=== PATIENT | female | born 1945 | race Caucasian/White ===

== ENCOUNTER → 2018-04-25 13:13 | Outpatient (CLI) | payer MEDICARE, SELFPAY ==
[2016-03-30 09:30] VITALS: BMI 24.4
[2018-04-25 15:22] LABS: Albumin, Serum 3.9 g/dL (3.2-5.0); BUN 37 mg/dL (7-18); BUN/Creat Ratio 25.9 RATIO (10-20); CPK Total, Creatine Kinase 103 U/L (26-192); Chloride 110 mmol/L (98-107); Creatinine, Serum 1.43 mg/dL (0.55-1.02); EST Glomerular Filtration Rate 38 mL/min (>60); Est Glom Filt Rate - Afr Amer 46 mL/min (>60); Glucose 99 mg/dL (74-106); Phosphorus 2.2 mg/dL (2.5-4.9); Potassium 4.8 mmol/L (3.5-5.1); Sodium Level 142 mmol/L (136-145)
== END ==
PROVIDERS: Family Provider Internal Medicine; PCP Internal Medicine; Visit Provider Internal Medicine Nephrology
DX: N18.3 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, stage 3 (moderate) (principal)
CPT/HCPCS: 36415; 80069; 82550

== ENCOUNTER → 2018-04-30 10:18 | Outpatient (CLI) | payer MEDICARE, SELFPAY ==
[2016-03-30 09:30] VITALS: BMI 24.4
--- NOTE | 2018-04-30 10:24 | US_ITS ---
STUDY: RENAL ULTRASOUND - COMPLETE REASON FOR EXAM: Female, 73 years old. Elevated BUN/creatinine TECHNIQUE: Ultrasound evaluation of the kidneys was performed with real-time and static moore-scale imaging. COMPARISON: None. FINDINGS: RIGHT KIDNEY: Normal location of the right kidney, which is normal in size. The right kidney measures 12.2 x 4.7 x 4.1 cm. There is a normal cortex of the right kidney. The renal cortex measures 1.2 cm. There is a 1.6 x 1.7 x 1.8 cm cyst, and stable post surgical changes in the upper pole.. There are no right renal calculi. There is no right hydronephrosis. DISTAL RIGHT URETER: There is non-visualization of the distal right ureter. There is no demonstrated right ureterovesical junction calculus. There is a visualized right ureteral jet. LEFT KIDNEY: There has been a previous left nephrectomy. AORTA: There is no elongation or tortuosity of the abdominal aorta. I.V.C.: The IVC is patent. BLADDER: The distended urinary bladder has a volume of 313.8 ml. The empty urinary bladder has a volume of 30.30 ml. There is a normal wall thickness of the distended urinary bladder. There is no demonstrated mass within the urinary bladder. There are no demonstrated bladder calculi. US/Kidney and Bladder IMPRESSION: Stable 1.8 cm cyst in the upper pole the right kidney. Stable postsurgical changes noted in the upper lobe of the right kidney measuring 2.0 x 1.9 x 2.2 cm Previous left nephrectomy Electronically Signed: Joe Barros MD at 12:41 EDT , Service support ,
== END ==
PROVIDERS: Family Provider Internal Medicine; PCP Internal Medicine; Referring Provider Internal Medicine Nephrology; Visit Provider Internal Medicine Nephrology
DX: N18.3 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, stage 3 (moderate) (principal)
CPT/HCPCS: 76770

== ENCOUNTER → 2018-05-17 10:01 | Outpatient (CLI) | payer MEDICARE, SELFPAY ==
[2016-03-30 09:30] VITALS: BMI 24.4
[2018-05-17 10:56] LABS: Albumin, Serum 3.4 g/dL (3.2-5.0); BUN 32 mg/dL (7-18); BUN/Creat Ratio 23.2 RATIO (10-20); Calcium,Total 8.5 mg/dL (8.5-10.1); Chloride 112 mmol/L (98-107); Creatinine, Serum 1.38 mg/dL (0.55-1.02); EST Glomerular Filtration Rate 40 mL/min (>60); Est Glom Filt Rate - Afr Amer 48 mL/min (>60); Glucose 64 mg/dL (74-106); Phosphorus 2.2 mg/dL (2.5-4.9); Potassium 4.1 mmol/L (3.5-5.1); Sodium Level 144 mmol/L (136-145)
== END ==
PROVIDERS: Family Provider Internal Medicine; PCP Internal Medicine; Referring Provider Internal Medicine Nephrology; Visit Provider Internal Medicine Nephrology
DX: N18.3 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, stage 3 (moderate) (principal)
CPT/HCPCS: 36415; 80069

== ENCOUNTER 2018-08-03 12:38 | Outpatient (RCR) | payer MEDICARE, SELFPAY ==
[2018-08-01 08:53] VITALS: BMI 24.8
[2018-08-03 13:01] LABS: Prothrombin Time Fingerstick 30.8 SEC (11.9-14.4)
== END 2018-08-19 23:59 ==
LOC: LAB.FUTURE 12:38
PROVIDERS: Family Provider Internal Medicine; PCP Internal Medicine; Referring Provider Internal Medicine Cardiovascular Disease; Visit Provider Internal Medicine Cardiovascular Disease
DX: I82.409 Acute embolism and thrombosis of unspecified deep veins of unspecified lower extremity (principal)
CPT/HCPCS: 36416; 85610

== ENCOUNTER → 2018-08-13 | Outpatient (CLI) | payer MEDICARE, SELFPAY ==
[2018-08-01 08:53] VITALS: BMI 24.8
--- NOTE | 2018-08-13 15:14 | ECHOD_ITS ---
Reason For Study: Emboli Procedure This was a 2D Doppler, Color Flow transthoracic echocardiogram. Contrast injection was performed. Exam performed in department. Left Ventricle Normal LV size. Left ventricular systolic function is normal. The estimated ejection fraction is 55 %. Stage 1 diastolic dysfunction. No regional wall motion abnormalities noted. Right Ventricle Normal RV size. Normal systolic function. Atria Normal left atrium. Normal right atrium. Mitral Valve Normal mitral valve. Mild-Moderate (1-2+) eccentric mitral valve insufficiency. Tricuspid Valve Normal tricuspid valve. Moderate (2+) tricuspid valve insufficiency. Pulmonary artery systolic pressure is 35 mmHg. Aortic Valve The aortic valve is not well visualized. Pulmonic Valve Normal pulmonic valve. Great Vessels Normal aortic root. The pulmonary artery is normal size. Normal inferior vena cava. Pericardium/Pleural No pericardial effusion. Medication Performed a rapid injection of agitated mix of 9 cc saline and 1cc air to assess for atrial septal defect. Diluted definity 5ml given slow IV push to enhance endocardial definition. MMode/2D Measurements & Calculations LVIDd: 3.9 cm IVSd: 1.1 cm Ao root diam: 3.3 cm LVIDs: 2.7 cm LVPWd: 1.0 cm RVDd: 3.9 cm FS: 31.2 % LAV(MOD-bp): 27.9 ml LA A4 area: 10.4 cm2 LA dimension(2D): 3.9 cm LAV(MOD-bp) Indexed: 17.2 ml/m2 LAV(MOD-sp2): 38.2 ml LAV(MOD-sp4): 20.1 ml RA A4 area: 20.1 cm2 Doppler Measurements & Calculations MV E max henry: 42.1 cm/sec Lat Peak E' Henry: 5.4 cm/sec Med Peak E' Henry: 4.1 cm/sec MV A max henry: 96.5 cm/sec E/E' lat: 7.9 E/E' med: 10.2 MV E/A: 0.44 Ao V2 max: 119.1 cm/sec LV V1 max: 68.7 cm/sec PA V2 max: 58.1 cm/sec Ao max P.7 mmHg LV V1 max P.9 mmHg Ao V2 mean: 84.7 cm/sec Ao mean P.1 mmHg Ao V2 VTI: 22.6 cm TR max henry: 274.7 cm/sec TR max P.2 mmHg Interpretation Summary Normal LV size. Left ventricular systolic function is normal. The estimated ejection fraction is 55 %. Stage 1 diastolic dysfunction. Contrast injection was performed. Ordering Physician: Jordan Marte Referring Physician: Amos Fulton Performed By: Analilia Ji, COLT, RVT
== END | disposition home or self-care (01) ==
LOC: CVS 15:12
PROVIDERS: Family Provider Internal Medicine; PCP Internal Medicine; Referring Provider Internal Medicine Cardiovascular Disease; Visit Provider Internal Medicine Cardiovascular Disease
DX: Z86.711 Personal history of pulmonary embolism (principal)
CPT/HCPCS: 93306; Q9957; A4216; C8929

== ENCOUNTER → 2018-08-17 | Outpatient (CLI) | payer MEDICARE, SELFPAY ==
[2018-05-22 11:36] VITALS: BMI 24.4
[2018-08-01 08:53] VITALS: BMI 24.8
[2018-08-17 16:35] LABS: Albumin, Serum 3.3 g/dL (3.2-5.0); BUN 29 mg/dL (7-18); BUN/Creat Ratio 18.1 RATIO (10-20); Calcium,Total 9.2 mg/dL (8.5-10.1); Chloride 110 mmol/L (98-107); EST Glomerular Filtration Rate 33 mL/min (>60); Est Glom Filt Rate - Afr Amer 40 mL/min (>60); Glucose 102 mg/dL (74-106); Phosphorus 2.8 mg/dL (2.5-4.9); Sodium Level 142 mmol/L (136-145)
== END | disposition home or self-care (01) ==
LOC: LAB.FUTURE 15:32
PROVIDERS: Family Provider Internal Medicine; PCP Internal Medicine; Referring Provider Internal Medicine Nephrology; Visit Provider Internal Medicine Nephrology
DX: N18.3 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, stage 3 (moderate) (principal)
CPT/HCPCS: 36415; 80069

== ENCOUNTER 2018-09-06 12:48 | Outpatient (RCR) | payer MEDICARE, SELFPAY ==
[2018-08-01 08:53] VITALS: BMI 24.8
[2018-09-06 13:55] LABS: Prothrombin Time (Protime)PT. 22.9 SECONDS (11.7-14.9)
[2018-09-06 13:58] LABS: Albumin, Serum 3.3 g/dL (3.2-5.0); BUN 26 mg/dL (7-18); BUN/Creat Ratio 18.3 RATIO (10-20); Calcium,Total 8.9 mg/dL (8.5-10.1); Chloride 107 mmol/L (98-107); Creatinine, Serum 1.42 mg/dL (0.55-1.02); EST Glomerular Filtration Rate 38 mL/min (>60); Est Glom Filt Rate - Afr Amer 46 mL/min (>60); Glucose 62 mg/dL (74-106); Phosphorus 3.3 mg/dL (2.5-4.9); Potassium 4.3 mmol/L (3.5-5.1); Sodium Level 141 mmol/L (136-145)
== END 2018-09-06 16:26 | disposition home or self-care (01) ==
LOC: LAB 12:48
PROVIDERS: Family Provider Internal Medicine; PCP Internal Medicine; Referring Provider Internal Medicine Cardiovascular Disease; Visit Provider Internal Medicine Cardiovascular Disease
DX: N18.3 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, stage 3 (moderate) (principal); I82.409 Acute embolism and thrombosis of unspecified deep veins of unspecified lower extremity
CPT/HCPCS: 36415; 80069; 85610

== ENCOUNTER 2018-10-04 11:02 | Outpatient (RCR) | payer MEDICARE, SELFPAY ==
[2018-08-01 08:53] VITALS: BMI 24.8
[2018-10-04 17:08] LABS: Prothrombin Time Fingerstick 23.8 SEC (11.9-14.4)
== END 2018-10-04 13:00 | disposition home or self-care (01) ==
LOC: LAB 11:02
PROVIDERS: Family Provider Internal Medicine; PCP Internal Medicine; Referring Provider Internal Medicine Cardiovascular Disease; Visit Provider Internal Medicine Cardiovascular Disease
DX: I82.409 Acute embolism and thrombosis of unspecified deep veins of unspecified lower extremity (principal)
CPT/HCPCS: 36416; 85610

== ENCOUNTER 2018-11-01 12:18 | Outpatient (RCR) | payer MEDICARE, SELFPAY ==
[2018-08-01 08:53] VITALS: BMI 24.8
[2018-11-01 16:58] LABS: Prothrombin Time Fingerstick 27.1 SEC (11.9-14.4)
== END 2018-11-01 13:00 | disposition home or self-care (01) ==
LOC: LAB 12:18
PROVIDERS: Family Provider Internal Medicine; PCP Internal Medicine; Referring Provider Internal Medicine Cardiovascular Disease; Visit Provider Internal Medicine Cardiovascular Disease
DX: I82.409 Acute embolism and thrombosis of unspecified deep veins of unspecified lower extremity (principal)
CPT/HCPCS: 36416; 85610

== ENCOUNTER 2018-11-30 11:07 | Outpatient (RCR) | payer MEDICARE, SELFPAY ==
[2018-08-01 08:53] VITALS: BMI 24.8
[2018-11-30 11:44] LABS: Prothrombin Time Fingerstick 25.5 SEC (11.9-14.4)
== END 2018-11-30 18:00 | disposition home or self-care (01) ==
LOC: LAB 11:07
PROVIDERS: Family Provider Internal Medicine; PCP Internal Medicine; Referring Provider Internal Medicine Cardiovascular Disease; Visit Provider Internal Medicine Cardiovascular Disease
DX: I82.409 Acute embolism and thrombosis of unspecified deep veins of unspecified lower extremity (principal)
CPT/HCPCS: 36416; 85610

== ENCOUNTER 2018-12-26 14:24 | Outpatient (RCR) | payer MEDICARE, SELFPAY ==
[2018-08-01 08:53] VITALS: BMI 24.8
[2018-12-26 15:05] LABS: International Normalized Ratio 2.6; Prothrombin Time (Protime)PT. 27.9 SECONDS (11.7-14.9)
== END 2018-12-26 18:00 | disposition home or self-care (01) ==
LOC: LAB 14:24
PROVIDERS: Family Provider Internal Medicine; PCP Internal Medicine; Referring Provider Internal Medicine Cardiovascular Disease; Visit Provider Internal Medicine Cardiovascular Disease
DX: I82.409 Acute embolism and thrombosis of unspecified deep veins of unspecified lower extremity (principal)
CPT/HCPCS: 36415; 85610

== ENCOUNTER 2019-02-15 14:21 | Outpatient (RCR) | payer MEDICARE, SELFPAY ==
[2018-08-01 08:53] VITALS: BMI 24.8
[2019-01-28 11:25] LABS: International Normalized Ratio 2.3; Prothrombin Time (Protime)PT. 25.1 SECONDS (11.7-14.9)
[2019-01-28 11:34] LABS: Albumin, Serum 3.5 g/dL (3.2-5.0); BUN 35 mg/dL (7-18); BUN/Creat Ratio 25.4 RATIO (10-20); Calcium,Total 9.1 mg/dL (8.5-10.1); Chloride 110 mmol/L (98-107); Creatinine, Serum 1.38 mg/dL (0.55-1.02); EST Glomerular Filtration Rate 40 mL/min (>60); Est Glom Filt Rate - Afr Amer 48 mL/min (>60); Glucose 64 mg/dL (74-106); Phosphorus 3.1 mg/dL (2.5-4.9); Potassium 4.3 mmol/L (3.5-5.1); Sodium Level 142 mmol/L (136-145)
[2019-01-28 11:45] LABS: PTHIN 52.9 pg/mL (18.4-80.1)
[2019-02-15 15:53] LABS: International Normalized Ratio 2.2; Prothrombin Time (Protime)PT. 24.5 SECONDS (11.7-14.9)
== END 2019-02-15 18:00 | disposition home or self-care (01) ==
LOC: LAB 14:21
PROVIDERS: Family Provider Internal Medicine; PCP Internal Medicine; Referring Provider Internal Medicine Cardiovascular Disease; Visit Provider Internal Medicine Cardiovascular Disease
DX: I82.409 Acute embolism and thrombosis of unspecified deep veins of unspecified lower extremity (principal); N18.3 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, stage 3 (moderate)
CPT/HCPCS: 36415; 80069; 83970; 85610

== ENCOUNTER 2019-03-14 08:28 | Outpatient (RCR) | payer MEDICARE, SELFPAY ==
[2018-08-01 08:53] VITALS: BMI 24.8
[2019-03-14 10:08] LABS: International Normalized Ratio 2.2; Prothrombin Time (Protime)PT. 24.1 SECONDS (11.7-14.9)
== END 2019-03-14 18:00 | disposition home or self-care (01) ==
LOC: LAB 08:28
PROVIDERS: Family Provider Internal Medicine; PCP Internal Medicine; Referring Provider Internal Medicine Cardiovascular Disease; Visit Provider Internal Medicine Cardiovascular Disease
DX: I82.409 Acute embolism and thrombosis of unspecified deep veins of unspecified lower extremity (principal)
CPT/HCPCS: 36415; 85610

== ENCOUNTER 2019-04-09 10:08 | Outpatient (RCR) | payer MEDICARE, SELFPAY ==
[2018-08-01 08:53] VITALS: BMI 24.8
[2019-04-09 10:21] LABS: Prothrombin Time Fingerstick 22.7 SEC (11.9-14.4)
== END 2019-04-09 18:00 | disposition home or self-care (01) ==
LOC: LAB 10:08
PROVIDERS: Family Provider Internal Medicine; PCP Internal Medicine; Referring Provider Internal Medicine Cardiovascular Disease; Visit Provider Internal Medicine Cardiovascular Disease
DX: I82.409 Acute embolism and thrombosis of unspecified deep veins of unspecified lower extremity (principal)
CPT/HCPCS: 36416; 85610

== ENCOUNTER 2019-05-09 12:40 | Outpatient (RCR) | payer MEDICARE, SELFPAY ==
[2018-08-01 08:53] VITALS: BMI 24.8
[2019-04-30 11:10] LABS: Prothrombin Time Fingerstick 23.3 SEC (11.9-14.4)
[2019-05-09 12:50] LABS: Prothrombin Time Fingerstick 25.3 SEC (11.9-14.4)
== END 2019-05-09 18:00 | disposition home or self-care (01) ==
LOC: LAB 12:40
PROVIDERS: Family Provider Internal Medicine; PCP Internal Medicine; Referring Provider Internal Medicine Cardiovascular Disease; Visit Provider Internal Medicine Cardiovascular Disease
DX: I82.409 Acute embolism and thrombosis of unspecified deep veins of unspecified lower extremity (principal)
CPT/HCPCS: 36416; 85610

== ENCOUNTER → 2019-06-06 | Outpatient (CLI) | payer MEDICARE, SELFPAY ==
[2018-08-01 08:53] VITALS: BMI 24.8
[2019-06-06 08:57] LABS: International Normalized Ratio 2.2; Prothrombin Time (Protime)PT. 23.9 SECONDS (11.7-14.9)
== END | disposition home or self-care (01) ==
LOC: PAVLAB 08:22
PROVIDERS: PCP Internal Medicine; Referring Provider Internal Medicine Cardiovascular Disease; Visit Provider Internal Medicine Cardiovascular Disease
DX: I82.409 Acute embolism and thrombosis of unspecified deep veins of unspecified lower extremity (principal)
CPT/HCPCS: 36415; 85610

== ENCOUNTER 2019-07-02 11:33 | Outpatient (RCR) | payer MEDICARE, SELFPAY ==
[2018-08-01 08:53] VITALS: BMI 24.8
[2019-07-02 12:59] LABS: International Normalized Ratio 2.2; Prothrombin Time (Protime)PT. 23.9 SECONDS (11.7-14.9)
[2019-07-02 13:14] LABS: Albumin, Serum 3.4 g/dL (3.2-5.0); BUN 32 mg/dL (7-18); BUN/Creat Ratio 22.5 RATIO (10-20); Chloride 103 mmol/L (98-107); Creatinine, Serum 1.42 mg/dL (0.55-1.02); EST Glomerular Filtration Rate 38 mL/min (>60); Est Glom Filt Rate - Afr Amer 46 mL/min (>60); Glucose 66 mg/dL (74-106); Phosphorus 2.8 mg/dL (2.5-4.9); Potassium 4.1 mmol/L (3.5-5.1); Sodium Level 140 mmol/L (136-145)
[2019-07-02 13:16] LABS: PTHIN 41.3 pg/mL (18.4-80.1)
== END 2019-07-02 18:00 | disposition home or self-care (01) ==
LOC: LAB 11:33
PROVIDERS: Internal Medicine Nephrology; Family Provider Internal Medicine; PCP Internal Medicine; Referring Provider Internal Medicine Cardiovascular Disease; Visit Provider Internal Medicine Cardiovascular Disease
DX: I82.409 Acute embolism and thrombosis of unspecified deep veins of unspecified lower extremity (principal)
CPT/HCPCS: 36415; 80069; 83970; 85610

== ENCOUNTER 2019-08-02 12:51 | Outpatient (RCR) | payer MEDICARE, SELFPAY ==
[2018-08-01 08:53] VITALS: BMI 24.8
[2019-08-01 10:38] VITALS: BMI 24.8
[2019-08-02 13:38] LABS: International Normalized Ratio 1.9; Prothrombin Time (Protime)PT. 21.4 SECONDS (11.7-14.9)
[2019-08-02 13:50] LABS: Albumin, Serum 3.3 g/dL (3.2-5.0); BUN 24 mg/dL (7-18); BUN/Creat Ratio 19.8 RATIO (10-20); Calcium,Total 9.2 mg/dL (8.5-10.1); Chloride 108 mmol/L (98-107); Creatinine, Serum 1.21 mg/dL (0.55-1.02); EST Glomerular Filtration Rate 46 mL/min (>60); Est Glom Filt Rate - Afr Amer 56 mL/min (>60); Glucose 68 mg/dL (74-106); Phosphorus 2.6 mg/dL (2.5-4.9); Potassium 4.3 mmol/L (3.5-5.1); Sodium Level 139 mmol/L (136-145)
== END 2019-08-02 18:00 | disposition home or self-care (01) ==
LOC: LAB 12:51
PROVIDERS: Family Provider Internal Medicine; PCP Internal Medicine; Referring Provider Internal Medicine Cardiovascular Disease; Visit Provider Internal Medicine Cardiovascular Disease
DX: I82.409 Acute embolism and thrombosis of unspecified deep veins of unspecified lower extremity (principal); Z79.01 Long term (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; Z86.711 Personal history of pulmonary embolism
CPT/HCPCS: 36415; 80069; 85610

== ENCOUNTER 2019-09-12 09:58 | Outpatient (RCR) | payer MEDICARE, SELFPAY ==
[2019-08-01 10:38] VITALS: BMI 24.8
[2019-09-03 13:13] LABS: Prothrombin Time (Protime)PT. 35.7 SECONDS (11.7-14.9)
[2019-09-03 13:19] LABS: International Normalized Ratio 3.6
[2019-09-12 10:34] LABS: International Normalized Ratio 3.2; Prothrombin Time (Protime)PT. 32.1 SECONDS (11.7-14.9)
== END 2019-09-12 18:00 | disposition home or self-care (01) ==
LOC: LAB 09:58
PROVIDERS: Family Provider Internal Medicine; PCP Internal Medicine; Referring Provider Internal Medicine Cardiovascular Disease; Visit Provider Internal Medicine Cardiovascular Disease
DX: I82.409 Acute embolism and thrombosis of unspecified deep veins of unspecified lower extremity (principal); Z86.711 Personal history of pulmonary embolism; Z79.01 Long term (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
CPT/HCPCS: 36415; 85610

== ENCOUNTER 2019-10-01 14:17 | Outpatient (RCR) | payer MEDICARE, SELFPAY ==
[2019-08-01 10:38] VITALS: BMI 24.8
[2019-09-24 13:24] VITALS: BMI 25.0
[2019-10-01 14:46] LABS: Prothrombin Time Fingerstick 23.6 SEC (11.9-14.4)
== END 2019-10-21 18:00 | disposition home or self-care (01) ==
LOC: LAB 14:17
PROVIDERS: Family Provider Internal Medicine; PCP Internal Medicine; Referring Provider Internal Medicine Cardiovascular Disease; Visit Provider Internal Medicine Cardiovascular Disease
DX: I82.409 Acute embolism and thrombosis of unspecified deep veins of unspecified lower extremity (principal); Z86.711 Personal history of pulmonary embolism; Z79.01 Long term (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
CPT/HCPCS: 36416; 85610

== ENCOUNTER → 2019-10-09 | Outpatient (CLI) | payer MEDICARE, SELFPAY ==
[2019-09-24 13:24] VITALS: BMI 25.0
--- NOTE | 2019-10-09 09:52 | BD_ITS ---
STUDY: DUAL ENERGY X-RAY ABSORPTIOMETRY / DXA REASON FOR EXAM: Female, 74 years old. PIERCER- EARLY SURGICAL AT 34 YRS OLD -- HAS BEEN ON PREDNISONE x15 YRS -- TAKES GABAPENTIN -- TAKES 500MG CALCIUM + MULTIVITAMIN -- HX OF TAKING FOSAMAX IN PAST FOR SHORT WHILE -- DOES MODERATE AMOUNT OF EXERCISE -- HX OF TOE FX''S -- KEMAL OF 2.5 INCHES TECHNIQUE: Bone Mineral Density (BMD) measurements of lumbar spine and bilateral hips were obtained. COMPARISON: None. FINDINGS: Lumbar Spine (L1-L4): g/cm2 (1.143) / T-score (-0.2) / Z-score (1.6) Findings are suggestive of normal bone density with a low fracture risk. Left Femur Total: g/cm2 (0.905) / T-score (-0.8) / Z-score (1.0) Left Femoral Neck: g/cm2 (0.792) / T-score (-1.8) / Z-score (0.2) Right Femur Total: g/cm2 (0.901) / T-score (-0.8) / Z-score (1.0) Right Femoral Neck: g/cm2 (0.812) / T-score (-1.6) / Z-score (0.4) BD/DXA BONE DENS W/VERT FX ASMT IMPRESSION: The patient is considered osteopenic as outlined below according to World Tre Organization (WHO) criteria with a moderate fracture risk. Reference Information: The T-score is the number of standard deviations above or below the standard which is normal for young adults at their peak bone mineral density. The World Health Organization (WHO) interprets the T-scores as follows: Above -1 Normal bone density Between -1 and -2.5 Osteopenia Equal to / or below -2.5 Osteoporosis As a practical clinical guideline, osteopenia may be graded as follows: Mild -1 through -1.5 Moderate -1.6 through -2.0 Severe -2.1 through -2.4 The Z-score is the number of standard deviations above or below age-matched controls. A Z-score of less than -1.5 would be considered abnormal. References: 1. NIH Osteoporosis and Related Bone Diseases http://www.osteo.org 2. International Society for Clinical Densitometry http://www.iscd.org 3. National Osteoporosis Foundation http://www.nof.org Electronically Signed: Geovanni Song, at 10:06 EDT , Service support ,
== END | disposition home or self-care (01) ==
LOC: OPBD 09:45
PROVIDERS: PCP Internal Medicine; Referring Provider Internal Medicine Endocrinology, Diabetes & Metabolism; Visit Provider Internal Medicine Endocrinology, Diabetes & Metabolism
DX: M81.0 Age-related osteoporosis without current pathological fracture (principal)
CPT/HCPCS: 77080; 77085

== ENCOUNTER 2019-11-11 12:34 | Emergency (ER) | payer MEDICARE, SELFPAY ==
[2019-09-24 13:24] VITALS: BMI 25.0
[2019-11-11 12:36] VITALS: BP 89/66; PULSE 93; RESP 16; TEMP 36.2; O2SAT 94; BMI 25.6
[2019-11-11 13:10] VITALS: BP 117/61
--- NOTE | 2019-11-11 13:10 | CT_ITS ---
STUDY: CT CERVICAL SPINE WITHOUT CONTRAST REASON FOR EXAM: Female, 74 years old. Head injury, hit in head by grass seeder, laceration to lateral right eye, on blood thinners. Hx hypertension. RADIATION DOSAGE (If Supplied By Facility): CTDIvol = ( 21.77 ) mGy, DLP = ( 397.15 ) mGycm TECHNIQUE: High resolution transaxial imaging was performed without contrast material. Sagittal and coronal images were reconstructed. Individualized dose optimization techniques were used for this CT. COMPARISON: None FINDINGS: Normal craniovertebral junction. Normal anterior atlantoaxial articulation. Normal odontoid process. Normal cervical lordosis. Normal vertebral bodies and posterior osseous elements. C2-3: Normal endplates. Normal disc height and morphology. Normal central canal and intervertebral neuroforamina. C3-4: Normal endplates. Normal disc height and morphology. Normal central canal and intervertebral neuroforamina. C4-5: Facet joint osteoarthritis and hypertrophy more prominent on the left side. Moderate degree of left neural foraminal stenosis. C5-6: Facet joint osteoarthritis and hypertrophy more prominent left side. Moderate degree of left neural foraminal stenosis. C6-7: Normal endplates. Normal disc height and morphology. Normal central canal and intervertebral neuroforamina. C7-T1: Normal endplates. Normal disc height and morphology. Normal central canal and intervertebral neuroforamina. Normal visualized soft tissue structures. CT/Spine Cervical without Contras IMPRESSION: Multilevel degenerative changes, as described above. Electronically Signed: Geovanni Song, at 13:58 EDT , Service support ,
--- NOTE | 2019-11-11 13:10 | CT_ITS ---
STUDY: CT BRAIN WITHOUT CONTRAST REASON FOR EXAM: Female, 74 years old. Head injury, hit in head by grass seeder, laceration to lateral right eye, on blood thinners. Hx hypertension. RADIATION DOSAGE (If Supplied By Facility): CTDIvol = ( 60.81 ) mGy, DLP = ( 998.67 ) mGycm TECHNIQUE: Transaxial CT imaging of the brain was performed without administration of intravenous contrast material. Individualized dose optimization techniques were used for this CT. COMPARISON: No relevant priors. FINDINGS: Normal soft tissue structures. Normal calvarium. There is mild cerebral atrophy with widening of the extra-axial spaces and ventricular dilatation. There are areas of decreased attenuation within the white matter tracts of the supratentorial brain, consistent with microvascular disease changes. Normal basal ganglia and thalami. Normal brainstem. Normal cerebellum. There is no intracranial hemorrhage. There are no findings of an acute ischemic infarction. Atherosclerotic calcification of the cavernous portions of the internal carotid arteries and vertebral arteries bilaterally. Mucosal thickening of the right maxillary sinus. There is a 6.9 mm mucosal polyp or retention cyst in the posterior aspect of the right sphenoid sinus. CT/Brain/Head without Contrast IMPRESSION: Chronic involutional changes of the brain. Electronically Signed: Geovanni Song, at 13:54 EDT , Service support ,
--- NOTE | 2019-11-11 13:12 | ED.VIS.GEN ---
History of Present Illness Chief Complaint: Head Injury Informant: Patient Onset: Today Current Severity: Mild Maximum Severity: Moderate Narrative: Patient presents with head injury and laceration to the right lateral eyebrow. Patient states she was trying to hang something up in her barn when a seat product development engineer was knocked off the wall and hit her in the head. She has a laceration just lateral to her right eyebrow. She denies loss of consciousness. She is currently on Coumadin. - Past Medical History (1) [place] disease Status: Chronic (2) Hyperlipidemia Status: Chronic (3) [facility] (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 Status: Chronic (4) Recurrent deep vein thrombosis (DVT) Status: Chronic (5) History of non-ST elevation myocardial infarction (NSTEMI) Status: Resolved Comment: possible coronary embolism (6) History of pulmonary embolism Status: Resolved (7) Atopic dermatitis Status: Chronic Past Medical History - Allergies and Home Meds Allergies/Adverse Reactions: Allergies ciprofloxacin [From Cipro] Allergy (Verified 09/24/19 13:25) Rash Penicillins Allergy (Verified 09/24/19 13:25) Rash Primary Care Physician: Amos Fulton MD [Primary Care Provider] - Prior records reviewed: Yes Surgical History: left nephrectomy 2000, right partial nephrectomy 2009 Smoking Status: Never smoker - Family History Sibling Family History: Family History (Last Reviewed 09/24/19 @ 14:[address] Torsten Vann MD) Father CVA (cerebral vascular accident) Mother Myocardial infarction, Onset Age: 87 Family History: Reports: Renal Disease Review of Systems General: Denies: Chills, Fever Eyes: Denies: Visual changes - bilaterally ENT: Denies: Bilateral ear pain Cardiovascular: Denies: Chest pain Respiratory: Denies: Dyspnea, Cough Gastrointestinal: Denies: Abdominal pain, Nausea, Vomiting Musculoskeletal: Denies: Neck pain, Extremity Pain Skin: Reports: Wounds Neurological: Reports: Headache Hematologic: Reports: Easy bleeding - Secondary to Coumadin. Denies: Easy bruising Allergy: Denies: Uticaria Physical Exam Vital Signs/Narrative: Vital Signs Temp Pulse Resp BP Pulse Ox 11/11/19 12:36 97.2 F L 93 16 89/66 L 94 Inital Vital Signs reviewed: Yes General: Well nourished, Well developed Head: Normocephalic, - - 3 cm laceration just lateral to the right eyebrow. Bleeding well controlled. Eyes: Perrl, EOMI ENT: Moist mucous membranes Neck: Supple, - - No C-spine tenderness. Cardiovascular: Regular rate, Regular rhythm Respiratory: No distress, CTA bilaterally Abdomen: Soft, Nontender Back: Nontender Extremities: Nontender Skin: - - Laceration as above Neurological: Alert, Oriented x3, Normal Strength, Normal Sensation Psychological: Normal affect Diagnostic/Tx/Re-eval Impressions Brain CT 11/11/19 13:10 IMPRESSION: Chronic involutional changes of the brain. Electronically Signed: Geovanni Duncan, at 13:54 EDT , Service support , Cervical Spine CT 11/11/19 13:10 IMPRESSION: Multilevel degenerative changes, as described above. Electronically Signed: Geovanni Song, at 13:58 EDT , Service support , 11/11/19 13:10 CT Cervical [Spine Cervical without Contras] [CT] Stat CT Head [Brain/Head without Contrast] [CT] Stat Laboratory Results 11/11/19 13:43 PT 24.8 H INR 2.3 - Medical Decision Making Blood pressure was initially low on arrival. Repeat blood pressures in the room are 117/61 and 114/71. Patient's INR is therapeutic at 2.3. Tetanus update is provided. CT scans are reviewed with patient and family. Right forehead laceration is anesthetized with 4 cc of 1% lidocaine. Wound is cleansed and irrigated. 8 simple interrupted sutures of 5-0 nylon are placed with good approximation. Patient is to have sutures removed in 1 week. Procedures - Lacerations No standard instances Length: 1.18 in Depth: Sub Q Shape: Flap Laceration repair: Local Number of Sutures/[place]: 8 Suture Information: Ethilon, 5-0 ED Disposition - Plan for ED Patient: Disposition: Home or Assisted Living Diagnosis: Forehead laceration, Closed head injury Instructions: ED Laceration Facial Sutr Tape, ED Head Injury Adult Referrals: Amos Fulton MD [Primary Care Provider] - 7 Days for suture removal
[2019-11-11] MEDS: Diphth,Pertuss(Acell),Tet Vac 0.5 ML Vial IM (13:45)
[2019-11-11 14:02] LABS: International Normalized Ratio 2.3; Prothrombin Time (Protime)PT. 24.8 SECONDS (11.7-14.9)
[2019-11-11 14:11] VITALS: BP 109/79; PULSE 82; RESP 16; O2SAT 99
== END 2019-11-11 14:31 | disposition home or self-care (01) ==
PROVIDERS: Emergency Provider Emergency Medicine; PCP Internal Medicine
DX: S01.111A Laceration without foreign body of right eyelid and periocular area, initial encounter (principal); E78.5 Hyperlipidemia, unspecified; I25.2 Old myocardial infarction; Z86.711 Personal history of pulmonary embolism; Z86.718 Personal history of other venous thrombosis and embolism; Z79.01 Long term (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; Z23 Encounter for immunization; W26.8XXA Contact with other sharp object(s), not elsewhere classified, initial encounter; Y93.89 Activity, other specified; Y92.71 Barn as the place of occurrence of the external cause; Y99.8 Other external cause status
CPT/HCPCS: 12013; 70450; 72125; 85610; 90715; 99283

== ENCOUNTER 2019-11-20 11:41 | Emergency (ER) | payer MEDICARE, SELFPAY ==
[2019-11-20 11:43] VITALS: BP 93/65; PULSE 91; RESP 17; TEMP 36.4; O2SAT 100; BMI 25.1
--- NOTE | 2019-11-20 11:54 | EKG12_ITS ---
Test Reason : FALL Blood Pressure : / mmHG Vent. Rate : 075 BPM Atrial Rate : 075 BPM P-R Int : 156 ms QRS Dur : 090 ms QT Int : 396 ms P-R-T Axes : 047 -17 013 degrees QTc Int : 442 ms Normal sinus rhythm Normal ECG Confirmed by FIONA ZELAYA, LARISA ([id number]), make up editor AMA PETERSEN ([id number]) on 11/25/2019 2:22:29 PM Referred By: KATHRYN Confirmed By:LARISA JAIMES MD
--- NOTE | 2019-11-20 12:03 | ED.VIS.INJ ---
History of Present Illness Chief Complaint: Head Injury Informant: Patient, Family Onset: Yesterday Mechanism/Context: Blunt Injury, Fall Quality of Pain: Dull, Aching Location: Lumbar Current Severity: Mild Maximum Severity: Moderate Worsened by: Movement, bending, rotation and palpation Relieved by: Remaining still makes it better Associated Symptoms: Loss of consciousness, Amnesia. Negative for: Parasthesias, Weakness, Loss of function, Inability to ambulate Length of loss of consciousness: Unknown Narrative: Patient is an elderly woman on Coumadin for DVT diagnosed 11 years ago. She was seen greater than 1 week ago due to blunt head trauma. Yesterday she walked up a flight of steps from the basement. She was at the sink. The next thing she recalls she awoke on the floor. There was no prodrome. She states her research nutritionist is Dr. Alysha Marte. Patient denies double vision, blurred vision loss of vision. Denies ringing in ears, decreased hearing or drainage from her ears. She denies rhinorrhea, epistaxis or congestion. She denies difficulty swallowing or any change in her voice or speech. She denies problems walking. Daughter feels she has problems walking. She denies black or maroon stool. She denies abdominal pain. She does report low back pain and localizes the pain over the lumbar region. She denies paresthesia, anesthesia or motor weakness presently or time of fall. 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 (5) Orthostatic hypotension Status: Chronic (6) Osteopenia determined by x-ray Status: Chronic (7) Recurrent deep vein thrombosis (DVT) Status: Chronic (8) History of non-ST elevation myocardial infarction (NSTEMI) Status: Resolved Comment: possible coronary embolism (9) History of pulmonary embolism Status: Resolved Past Medical History - Allergies and Home Meds Allergies/Adverse Reactions: Allergies ciprofloxacin [From Cipro] Allergy (Verified 11/20/19 11:42) Rash Penicillins Allergy (Verified 11/20/19 11:42) Rash Primary Care Physician: Amos Fulton MD [Primary Care Provider] - Prior records reviewed: Yes Surgical History: noncontributory Lives: Alone Smoking Status: Never smoker Alcohol: None Drugs: None - Family History Sibling Family History: Family History (Last Reviewed 09/24/19 @ 14:[address] Torsten Vann MD) Father CVA (cerebral vascular accident) Mother Myocardial infarction, Onset Age: 87 Family History: Reports: Renal Disease Review of Systems General: Denies: Chills, Fever, Malaise, Subjective, Sweats Eyes: Denies: Visual changes - bilaterally, Blurred Vision - bilaterally, Diplopia ENT: Denies: Bilateral ear pain, Rhinorrhea, Sore throat Cardiovascular: Denies: Chest pain, Palpitations, Heart racing Respiratory: Denies: Dyspnea, Cough, Sputum, Dyspnea on exertion Gastrointestinal: Denies: Abdominal pain, Nausea, Vomiting, Diarrhea, Melena, Hematochezia Genitourinary: Denies: Dysuria, Hematuria Musculoskeletal: Reports: Back pain. Denies: Myalgias, Arthralgias, Neck pain, Swelling, Extremity Pain Skin: Reports: Wounds. Denies: Rash Neurological: Reports: Weakness. Denies: Headache Endocrine: Denies: Polyuria, Polydipsia Hematologic: Reports: Easy bruising Allergy: Denies: Uticaria Physical Exam Vital Signs/Narrative: Vital Signs Temp Pulse Resp BP Pulse Ox 11/20/19 11:43 97.6 F L 91 17 93/65 100 Inital Vital Signs reviewed: Yes General: Well nourished, Well developed Head: Normocephalic, Trauma - Due to prior fall Eyes: Perrl, EOMI. Negative for: Pale conjunctiva, Scleral icterus ENT: TM's clear, No hemotympanum or drainage, No trauma. Negative for: Hemotympanum, Otorrhea, Nasal trauma, Nasal septal hematoma Neck: Nontender, Full ROM, Spinal Tenderness, Paraspinal Tenderness Cardiovascular: Regular rate, Regular rhythm, No murmurs, Normal S1, Normal S2 Respiratory: No distress, CTA bilaterally, Chest nontender Abdomen: Soft, Nontender, Nondistended, Normal bowel sounds, No masses Rectal: Deferred Back: Spinal Tenderness, Paraspinal Tenderness. Negative for: Nontender, CVA Tenderness - Right, CVA Tenderness - Left Skin: Normal color, Rash - Dermatitis Neurological: Alert, Oriented x3, Cranial nerves II-XII grossly intact, Normal Strength, Normal Sensation, Normal Gait - Glascow Coma Scale Eye Opening: Spontaneous Motor: Obeys Commands Verbal: Oriented Coma Scale Total: 15 Diagnostic/Tx/Re-eval Impressions Brain CT 11/20/19 12:20 IMPRESSION: Chronic involutional changes of the brain. Electronically Signed: Geovanni Song, at 12:38 EDT , Service support , Lumbar Spine X-Ray 11/20/19 12:30 IMPRESSION: Degenerative changes of the spine, as detailed above. Electronically Signed: Geovanni Song, at 12:53 EDT , Service support , 11/20/19 12:20 Brain/Head without Contrast [CT] Stat 11/20/19 12:30 Lumbar Spine 2 or 3 Views [RAD] Stat Laboratory Results 11/20/19 11/20/19 11/20/19 12:15 12:15 12:15 WBC 7.7 RBC 4.34 Hgb 12.9 Hct 40.3 MCV 92.9 MCH 29.7 MCHC 32.0 RDW Std Deviation 46.5 H RDW Coeff of Slava 13.7 Plt Count 245 MPV 11.3 Immature Gran % (Auto) 0.600 Neut % (Auto) 59.1 Lymph % (Auto) 15.7 L Ceiba % (Auto) 11.5 H Eos % (Auto) 12.2 H Baso % (Auto) 0.9 Absolute Neuts (auto) 4.6 Absolute Lymphs (auto) 1.21 Nucleated RBC % 0 PT 22.6 H INR 2.0 Sodium 141 Potassium 3.5 Chloride 109 H Carbon Dioxide 28.0 Anion Gap 4 L BUN 27 H Creatinine 1.34 H Estim Creat Clear Calc 28.25 Est GFR (MDRD) Af Amer 49 L Est GFR (MDRD) Non-Af 41 L BUN/Creatinine Ratio 20.1 H Glucose 113 H Calcium 9.2 - Medical Decision Making With history of blunt head trauma on Coumadin per the Toole CT head rule and the [place] rule CT of the head was obtained to rule out intracranial bleed i.e. subdural, epidural, traumatic subarachnoid hemorrhage and contusion. Because patient had a syncopal episode will obtain EKG and appropriate blood work. Need to evaluate for cardiac dysrhythmia, cardiac ischemia, vasovagal syncope and other causes. CT of the head reveals no evidence of traumatic bleed. INR is 2.0. Based on literature patient is safe to go home. We will have her follow-up with her research nutritionist and primary care physician. After reviewing prior records it was determined patient had multiple DVTs and PE and reason for Coumadin. ED Disposition - Plan for ED Patient: Disposition: Home or Assisted Living Diagnosis: Syncope and collapse, Closed head injury with loss of consciousness of unknown duration, USP current use of anticoagulant Instructions: ED Head Injury Adult, ED Fainting Uncertain Cause Referrals: Amos Fulton MD [Primary Care Provider] - 5-7 Days Jordan Maret MD [STAFF PHYSICIAN] - 3-5 Days
--- NOTE | 2019-11-20 12:20 | CT_ITS ---
STUDY: CT BRAIN WITHOUT CONTRAST REASON FOR EXAM: Female, 74 years old. 2 FALLS OVER THE LAST FEW DAYS. PT ON COUMADIN. HX OF DVT CKD PYELONEPHRITIS PARTIAL NEPHRECTOMY RADIATION DOSAGE (If Supplied By Facility): CTDIvol = ( 44.99 ) mGy, DLP = ( 779.24 ) mGycm TECHNIQUE: Transaxial CT imaging of the brain was performed without administration of intravenous contrast material. Individualized dose optimization techniques were used for this CT. COMPARISON: Comparison is made with prior study dated 11/11/2019. FINDINGS: Normal soft tissue structures. Normal calvarium. There is mild cerebral atrophy with widening of the extra-axial spaces and ventricular dilatation. There are areas of decreased attenuation within the white matter tracts of the supratentorial brain, consistent with microvascular disease changes. Normal basal ganglia and thalami. Normal brainstem. Normal cerebellum. There is no intracranial hemorrhage. There are no findings of an acute ischemic infarction. Atherosclerotic calcification of the cavernous portions of the internal carotid arteries bilaterally. Stable small polyp along the posterior aspect of the right sphenoid sinus. CT/Brain/Head without Contrast IMPRESSION: Chronic involutional changes of the brain. Electronically Signed: Geovanni Song, at 12:38 EDT , Service support ,
--- NOTE | 2019-11-20 12:30 | RAD_ITS ---
STUDY: X-RAY - LUMBAR SPINE REASON FOR EXAM: Female, 74 years old. PASSED OUT THIS MORNING AND FELL. LOW BACK PAIN. TECHNIQUE: 3 view(s) of the lumbar spine were obtained. COMPARISON: None FINDINGS: Normal lumbar lordosis. There is no substantial scoliosis. Grade 1 anterior listhesis of L3 on L4 without spondylolysis. There is multilevel endplate spondylosis of the lumbar vertebrae. There is multi-level degenerative disc disease with multi-level disc space narrowing. Facet joint osteoarthritis. A filter is seen within the inferior vena cava. RAD/Lumbar Spine 2 or 3 Views IMPRESSION: Degenerative changes of the spine, as detailed above. Electronically Signed: Geovanni Song, at 12:53 EDT , Service support ,
[2019-11-20 12:33] LABS: Absolute Lymphocyte Count 1.21 X10^3/uL (0.83-4.51); Absolute Neutrophil Count 4.6 X10^3/uL (2.0-7.7); Basophil# 0.07 X10^3/uL; Basophil% 0.9 % (0-1); Eosinophil# 0.94 X10^3/uL; Eosinophils% 12.2 % (0-5); Hematocrit 40.3 % (37-47); Hemoglobin 12.9 g/dL (12.0-15.0); Lymphocyte # 1.21 X10^3/ul (4.0); Lymphocyte % 15.7 % (19-41); Mean Corpuscular Hgb 29.7 pg (27.0-32.0); Mean Corpuscular Volume 92.9 fL (81-99); Mean Platelet Vol. 11.3 fl (6.2-12.0); Monocyte# 0.89 X10^3/uL; Monocyte% 11.5 % (0-10); NRBC Flagged by Analyzer 0 % (0-5); Neutrophil # 4.55 X10^3/uL (2.7-7.7); Neutrophil % 59.1 % (47-70); Platelet Count 245 K/mm3 (150-450); RBC Distribution Width CV 13.7 % (11.6-14.6); RBC Distribution Width SD 46.5 fl (35.1-43.9); Red Blood Count 4.34 M/mm3 (4.2-5.4); White Blood Count 7.7 K/mm3 (4.4-11.0)
[2019-11-20 12:41] LABS: Anion Gap 4 (5-15); BUN 27 mg/dL (7-18); BUN/Creat Ratio 20.1 RATIO (10-20); Calcium,Total 9.2 mg/dL (8.5-10.1); Chloride 109 mmol/L (98-107); Creatinine, Serum 1.34 mg/dL (0.55-1.02); EST Glomerular Filtration Rate 41 mL/min (>60); Est Glom Filt Rate - Afr Amer 49 mL/min (>60); Estimated Creatinine Clearance 28.25 ml/min; Glucose 113 mg/dL (74-106); Potassium 3.5 mmol/L (3.5-5.1); Sodium Level 141 mmol/L (136-145)
[2019-11-20 12:43] LABS: Prothrombin Time (Protime)PT. 22.6 SECONDS (11.7-14.9)
[2019-11-20 14:04] VITALS: BP 122/85; PULSE 75; RESP 22; O2SAT 98
== END 2019-11-20 14:33 | disposition home or self-care (01) ==
PROVIDERS: Emergency Provider Emergency Medicine; PCP Internal Medicine
DX: R55 Syncope and collapse (principal); S06.9X9A Unspecified intracranial injury with loss of consciousness of unspecified duration, initial encounter; E78.5 Hyperlipidemia, unspecified; I25.2 Old myocardial infarction; Z86.711 Personal history of pulmonary embolism; Z86.718 Personal history of other venous thrombosis and embolism; Z79.01 Long term (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; Z79.899 Other long term (current) drug therapy; W18.30XA Fall on same level, unspecified, initial encounter; Y93.89 Activity, other specified; Y92.000 Kitchen of unspecified non-institutional (private) residence as the place of occurrence of the external cause; Y99.8 Other external cause status
CPT/HCPCS: 70450; 72100; 80048; 85025; 85610; 93005; 99284; A4216

== ENCOUNTER → 2019-11-21 | Outpatient (CLI) | payer MEDICARE, SELFPAY ==
[2019-11-11 12:36] VITALS: BMI 25.6
[2019-11-20 11:43] VITALS: BMI 25.1
[2019-11-21 13:17] VITALS: BP 107/68; PULSE 78; RESP 16; TEMP 35.8; O2SAT 100; BMI 24.8
[2019-11-21] MEDS: DENOSUMAB 60 MG/ML SQ (13:30)
== END | disposition home or self-care (01) ==
LOC: MEDOUTP 12:52
PROVIDERS: PCP Internal Medicine; Referring Provider Internal Medicine Endocrinology, Diabetes & Metabolism; Visit Provider Internal Medicine Endocrinology, Diabetes & Metabolism
DX: M81.0 Age-related osteoporosis without current pathological fracture (principal)
CPT/HCPCS: 96372; J0897

== ENCOUNTER 2019-12-17 11:28 | Outpatient (RCR) | payer MEDICARE, SELFPAY ==
[2019-09-24 13:24] VITALS: BMI 25.0
[2019-11-21 13:17] VITALS: BMI 24.8
[2019-12-17 11:40] LABS: Prothrombin Time Fingerstick 26.4 SEC (11.9-14.4)
== END 2019-12-17 18:00 | disposition home or self-care (01) ==
LOC: LAB 11:28
PROVIDERS: Family Provider Internal Medicine; PCP Internal Medicine; Referring Provider Internal Medicine Cardiovascular Disease; Visit Provider Internal Medicine Cardiovascular Disease
DX: I82.409 Acute embolism and thrombosis of unspecified deep veins of unspecified lower extremity (principal); Z86.711 Personal history of pulmonary embolism; Z79.01 Long term (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
CPT/HCPCS: 36416; 85610

== ENCOUNTER → 2020-01-09 11:13 | Outpatient (CLI) | payer MEDICARE, SELFPAY ==
[2019-11-21 13:17] VITALS: BMI 24.8
[2020-01-09 13:00] LABS: Albumin, Serum 3.2 g/dL (3.2-5.0); BUN 22 mg/dL (7-18); BUN/Creat Ratio 18.3 RATIO (10-20); Calcium,Total 9.1 mg/dL (8.5-10.1); Chloride 109 mmol/L (98-107); EST Glomerular Filtration Rate 46 mL/min (>60); Est Glom Filt Rate - Afr Amer 56 mL/min (>60); Glucose 63 mg/dL (74-106); Phosphorus 2.6 mg/dL (2.5-4.9); Potassium 3.9 mmol/L (3.5-5.1); Sodium Level 142 mmol/L (136-145)
[2020-01-09 13:12] LABS: PTHIN 53.2 pg/mL (18.4-80.1)
== END ==
PROVIDERS: PCP Internal Medicine; Visit Provider Internal Medicine Nephrology
DX: N18.30 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, stage 3 unspecified (principal)
CPT/HCPCS: 36415; 80069; 83970

== ENCOUNTER 2020-01-17 12:30 | Outpatient (RCR) | payer MEDICARE, SELFPAY ==
[2019-11-21 13:17] VITALS: BMI 24.8
[2020-01-17 12:51] LABS: Prothrombin Time Fingerstick 21.6 SEC (11.9-14.4)
== END 2020-01-17 18:00 | disposition home or self-care (01) ==
LOC: LAB 12:30
PROVIDERS: Family Provider Internal Medicine; PCP Internal Medicine; Referring Provider Internal Medicine Cardiovascular Disease; Visit Provider Internal Medicine Cardiovascular Disease
DX: Z86.711 Personal history of pulmonary embolism (principal); Z79.01 Long term (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
CPT/HCPCS: 36416; 85610

== ENCOUNTER 2020-02-04 12:35 | Outpatient (RCR) | payer MEDICARE, SELFPAY ==
[2019-11-21 13:17] VITALS: BMI 24.8
[2020-02-04 13:41] LABS: Prothrombin Time Fingerstick 21.7 SEC (11.9-14.4)
== END 2020-02-04 18:00 | disposition home or self-care (01) ==
LOC: LAB 12:35
PROVIDERS: Family Provider Internal Medicine; PCP Internal Medicine; Referring Provider Internal Medicine Cardiovascular Disease; Visit Provider Internal Medicine Cardiovascular Disease
DX: Z86.718 Personal history of other venous thrombosis and embolism (principal); Z86.711 Personal history of pulmonary embolism; Z79.01 Long term (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
CPT/HCPCS: 36416; 85610

== ENCOUNTER 2020-02-28 14:24 | Outpatient (RCR) | payer MEDICARE, SELFPAY ==
[2019-11-21 13:17] VITALS: BMI 24.8
[2020-02-28 14:41] LABS: Prothrombin Time Fingerstick 24.8 SEC (11.9-14.4)
== END 2020-02-28 18:00 | disposition home or self-care (01) ==
LOC: LAB 14:24
PROVIDERS: Family Provider Internal Medicine; PCP Internal Medicine; Referring Provider Internal Medicine Cardiovascular Disease; Visit Provider Internal Medicine Cardiovascular Disease
DX: Z86.711 Personal history of pulmonary embolism (principal); Z86.718 Personal history of other venous thrombosis and embolism; Z79.01 Long term (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
CPT/HCPCS: 36416; 85610

== ENCOUNTER 2020-03-20 16:25 | Observation (INO) | payer MEDICARE, SELFPAY ==
[2019-11-21 13:17] VITALS: BMI 24.8
[2020-03-20] VITALS (8 sets, daily range): BP systolic 36–115; BP diastolic 19–73; PULSE 86–100; RESP 16–19; TEMP 36.2–36.7; O2SAT 96–100; BMI 24.1; BMI 25.0
--- NOTE | 2020-03-20 16:30 | ED.RN ---
CLINT SHEEHAN [phone]
--- NOTE | 2020-03-20 16:59 | CT_ITS ---
STUDY: CT BRAIN WITHOUT CONTRAST REASON FOR EXAM: Female, 74 years old. Syncope today, fell hitting right side of head, large laceration behind right ear. History of hypertension. RADIATION DOSAGE (If Supplied By Facility): CTDIvol = ( 44.99 ) mGy, DLP = ( 748.30 ) mGycm TECHNIQUE: Transaxial CT imaging of the brain was performed without administration of intravenous contrast material. Individualized dose optimization techniques were used for this CT. COMPARISON: 11/20/2019 FINDINGS: There is a soft tissue defect posterior to the right external ear consistent with recent trauma. Normal calvarium. There is mild cerebral atrophy with widening of the extra-axial spaces and ventricular dilatation. Normal white matter tracts of the cerebral hemispheres. Normal basal ganglia and thalami. Normal brainstem. Normal cerebellum. There is no intracranial hemorrhage. There are no findings of an acute ischemic infarction. Normal visualized paranasal sinuses. CT/Brain/Head without Contrast IMPRESSION: Chronic involutional changes of the brain. No acute intracranial process. Electronically Signed: Jeniffer Villalobos MD at 18:29 EST Tel , Service support ,
--- NOTE | 2020-03-20 16:59 | EKG12_ITS ---
Test Reason : Blood Pressure : / mmHG Vent. Rate : 089 BPM Atrial Rate : 089 BPM P-R Int : 156 ms QRS Dur : 100 ms QT Int : 352 ms P-R-T Axes : 059 -12 -09 degrees QTc Int : 428 ms Normal sinus rhythm Possible Left atrial enlargement Cannot rule out Anterior infarct , age undetermined ST & T wave abnormality, consider inferior ischemia Abnormal ECG Confirmed by AMANDA ZELAYA, RIGOBERTO ([id number]), editor book AMA PETERSEN ([id number]) on 03/23/2020 12:15:58 PM Referred By: BREANNA Confirmed By:VENTURA PATEL MD
--- NOTE | 2020-03-20 17:13 | ED.DCSUM_ITS ---
- ER Visit Summary Date of Service: 03/20/20 Chief Complaint: Syncope History of Present Illness: The patient is a 74 F presenting after syncopal episode. Patient states she was in her kitchen and then woke up on the floor. She had no symptoms prior to her syncopal episode. She denies chest pain or shortness of breath. She is on Coumadin for history of DVT. She has a laceration to her right scalp. She was tested for Covid yesterday and was negative. She states she was having body aches and diarrhea so she was tested for Covid. She denies other complaints. Physical Examination: Vitals are stable. Patient is afebrile. Alert no acute distress. HEENT exam right scalp laceration Neck is nontender Lungs are clear and equal bilaterally. Heart is regular rate and rhythm. Abdomen is soft nontender nondistended. Extremities are unremarkable. Skin is warm and dry. No focal neurologic deficit. Remainder of exam is unremarkable. Emergency Department Course and Treatment: EKG is sinus rhythm with inferior T wave inversion. CBC, chemistries unremarkable other than BUN 36, creatinine 1.41. Troponin 0.02. Covid is negative. Chest x-ray shows no acute process. CT head shows chronic changes. Laceration was anesthetized with lidocaine. Irrigated with saline. 3 juni were placed. Patient tolerated this well. Disposition: Observation Impression: Syncope, scalp laceration, laceration repair This note was generated with [employer] dictation software. It may contain incorrect words, spelling, and punctuation that were not noted in review of the chart prior to signing ED Disposition - Plan for ED Patient: Referrals: Amos Fulton MD [Primary Care Provider] -
[2020-03-20 17:54] LABS: Absolute Lymphocyte Count 1.39 X10^3/uL (0.83-4.51); Absolute Neutrophil Count 5.3 X10^3/uL (2.0-7.7); Basophil# 0.03 X10^3/uL; Basophil% 0.4 % (0-1); Eosinophil# 1.31 X10^3/uL; Eosinophils% 15.3 % (0-5); Hematocrit 43.3 % (37-47); Hemoglobin 13.9 g/dL (12.0-15.0); Lymphocyte # 1.39 X10^3/ul (4.0); Lymphocyte % 16.2 % (19-41); Mean Corp Hgb Conc 32.1 g/dL (32-36); Mean Corpuscular Hgb 28.3 pg (27.0-32.0); Mean Platelet Vol. 10.1 fl (6.2-12.0); Monocyte# 0.47 X10^3/uL; Monocyte% 5.5 % (0-10); NRBC Flagged by Analyzer 0 % (0-5); Neutrophil % 61.8 % (47-70); Platelet Count 254 K/mm3 (150-450); RBC Distribution Width CV 14.3 % (11.6-14.6); RBC Distribution Width SD 46.3 fl (35.1-43.9); Red Blood Count 4.92 M/mm3 (4.2-5.4); White Blood Count 8.6 K/mm3 (4.4-11.0)
--- NOTE | 2020-03-20 17:54 | RAD_ITS ---
STUDY: X-RAY CHEST REASON FOR EXAM: Female, 74 years old. COUGH; FELL WHILE STANDING AT SINK . UNSURE WHY BUT NEXT THING SHE KNEW SHE WAS ON THE FLOOR. DENIES LOC TECHNIQUE: Single frontal view of the chest. COMPARISON: 11/07/2013 FINDINGS: There is no new focal consolidation. Normal size heart. Normal mediastinum and timothy. Normal visualized pulmonary arteries. Normal visualized aortic arch and descending thoracic aorta. Normal visualized thoracic spine. Normal visualized ribs, clavicles, and shoulders. There is no demonstrated abnormality of the visualized soft tissue structures of the upper abdomen. RAD/Chest 1 View (Portable) IMPRESSION: No acute cardiopulmonary process. Electronically Signed: Jeniffer Villalobos MD at 18:26 EST Tel , Service support ,
[2020-03-20 18:09] LABS: Anion Gap 7 (5-15); BUN 36 mg/dL (7-18); BUN/Creat Ratio 25.5 RATIO (10-20); Calcium,Total 11.7 mg/dL (8.5-10.1); Chloride 100 mmol/L (98-107); Creatinine, Serum 1.41 mg/dL (0.55-1.02); EST Glomerular Filtration Rate 38 mL/min (>60); Est Glom Filt Rate - Afr Amer 47 mL/min (>60); Estimated Creatinine Clearance 26.85 ml/min; Glucose 72 mg/dL (74-106); Potassium 3.7 mmol/L (3.5-5.1); Sodium Level 135 mmol/L (136-145)
[2020-03-20 18:20] LABS: Prothrombin Time (Protime)PT. 38.4 SECONDS (11.7-14.9)
[2020-03-20 18:54] LABS: International Normalized Ratio 3.9
--- NOTE | 2020-03-20 19:17 | HP.PCM_ITS ---
Problem List (1) Syncope Status: Acute Qualifiers: Syncope type: unspecified Qualified Code(s): R55 - Syncope and collapse (2) Acute electrocardiogram changes Status: Acute (3) Hypoglycemia Status: Acute (4) History of non-ST elevation myocardial infarction (NSTEMI) Status: Resolved Comment: possible coronary embolism (5) Recurrent deep vein thrombosis (DVT) Status: Chronic (6) History of pulmonary embolism Status: Resolved (7) Hyperlipidemia Status: Chronic Qualifiers: Hyperlipidemia type: unspecified Qualified Code(s): E78.5 - Hyperlipidemia, unspecified (8) Orthostatic hypotension Status: Chronic History of Present Illness Date of Admission: 03/20/20 Chief Complaint: Syncopal event. The patient is a 74 y/o F w/ PMHx: CKD stage III, HTN, HLD, Hx DVTs/PE on coumadin, Hx NSTEMI, Kyler's disease, Known orthostatic hypotension, Hx renal CA s/p partial R nephrectomy and Hx L nephrectomy for donation who presents to the [facility] ED on 03/20/20 with history of syncopal event following an unfortunate hitting the side of her head with no specific loss of consciousness with fall with laceration to the right posterior scalp, on Coumadin therapy, prompting ED evaluation. Patient of note has had poor recent oral intake, feeling poorly this last week with severe body aches, no appetite as well as 1 day of loose stools but no nausea, vomiting, abdominal pain. She does states she had a mild cough but no dyspnea. She denies any alteration sense of taste or smell with negative Covid testing the day prior to current presentation and negative Covid rapid antigen in the ED. Work-up in the ED included T 97.2 temporally, heart rate 90, BP 105/52, respiratory rate 16, 96% on room air, CBC with WC 8.6, hemoglobin 13.9, platelet 254 without marked shift, coags with INR 3.9, BMP with sodium 135, BUN/creatinine 36/1.42, glucose 72, troponin 0.020, SARS rapid Covid antigen negative, chest x-ray with no acute cardiopulmonary findings, CT brain with chronic involutional changes otherwise no acute intracranial process, EKG w/ SR inferior lateral T wave inversions new from October with no associated chest pain. In the ED patient administered normal saline. In the ED 2 juni placed to her scalp with planned removal in 7 days. Discussed with ED physician and will obtain orthostatic VS while in the ED. Past Medical History Past Medical History (Chronic Problems): Chronic Problems (Last Reviewed 09/24/19 @ 14:[address] Torsten Vann MD) Atopic dermatitis (Chronic) Osteopenia determined by x-ray (Chronic) [place] disease (Chronic) Recurrent deep vein thrombosis (DVT) (Chronic) Hyperlipidemia (Chronic) Orthostatic hypotension (Chronic) correction (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 (Chronic) Medical History: Medical History (Last Reviewed 09/24/19 @ 14:[address] Torsten Vann MD) [place] disease (Chronic) E27.1 History of non-ST elevation myocardial infarction (NSTEMI) (Resolved) Onset Date: 04/2009 I25.2 possible coronary embolism Recurrent deep vein thrombosis (DVT) (Chronic) I82.409 History of pulmonary embolism (Resolved) Z86.711 Hyperlipidemia (Chronic) E78.5 Orthostatic hypotension (Chronic) I95.1 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, stage 3 N18.3 Cystocele with rectocele N81.10, N81.6 size 4 ring with support History of DVT (deep vein thrombosis) Z86.718 Hypotension I95.9 Pyelonephritis N12 Essential (primary) hypertension (Ruled-out) I10 Allergies ciprofloxacin [From Cipro] Allergy (Verified 03/20/20 16:29) Rash Penicillins Allergy (Verified 03/20/20 16:29) Rash Home Medications: Ambulatory Orders Medication Instructions Recorded Calcium Carbonate/Vitamin D3 1 ea PO DAILY 03/24/16 [Calcium 500-Vit D3 200 Tablet] L.acidoph,Paracasei, B.lactis 1 ea PO DAILY 03/24/16 [Probiotic] nitroglycerin 0.4 mg sublingual 0.4 mg SUBLINGUAL Q5-15M PRN 05/21/18 tablet Simvastatin 20 mg PO QHS 11/11/19 Warfarin [Coumadin] 3 mg PO SUTUTHSA 11/11/19 Fludrocortisone Acetate [Florinef] 0.1 mg PO DAILY 11/20/19 Cholecalciferol (Vitamin D3) 1,000 unit PO DAILY 03/20/20 [Vitamin D3] Cyanocobalamin (Vitamin B-12) 1,000 mcg PO DAILY 03/20/20 [B-12] Gabapentin 300 mg PO DAILY 03/20/20 Gabapentin 600 mg PO QHS 03/20/20 Prednisone 2 mg PO QHS 03/20/20 Warfarin Sodium 4 mg PO MOWEFR 03/20/20 Surgical History: Surgical History (Last Reviewed 09/24/19 @ 14:[address] 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 Torsten Vann MD) Father CVA (cerebral vascular accident) Mother Myocardial infarction, Onset Age: 87 History Items: Renal Disease Maternal Family History: Family History (Last Reviewed 09/24/19 @ 14:[address] Torsten Vann MD) Father CVA (cerebral vascular accident) Mother Myocardial infarction, Onset Age: 87 History Items: High Cholesterol, Heart Disease, Hypertension Paternal Family History: Family History (Last Reviewed 09/24/19 @ 14:[address] Torsten Vann MD) Father CVA (cerebral vascular accident) Mother Myocardial infarction, Onset Age: 87 History Items: Stroke Review of Systems Constitutional: Reports: Anorexia, Malaise, Weakness, Fatigue. Denies: Chills, Fever, Weight Change HEENT: Reports: - - Status post fall with right scalp laceration with bleeding.. Denies: Head Aches, Sinus Congestion, Sinus Drainage Cardiovascular: Denies: Chest Pain, Palpitations Respiratory: Reports: Cough. Denies: Pleuritic Pain, Shortness of Breath, Shortness of breath at rest, Shortness of breath upon exertion, Sputum production Gastrointestinal: Reports: Diarrhea. Denies: Abdominal Pain, Nausea, Vomiting Genitourinary: Denies: Dysuria Musculoskeletal: Reports: Joint Pain, Muscle pain. Denies: Joint Tenderness Skin: Denies: Rash, Wounds Neurological: Denies: Numbness, Tingling, Focal weakness Psychiatric: Denies: Anxiety, Depression, Homicidal Ideations, Suicidal Ideations Hematologic/ Lymphatic: Reports: Easy Bruising, Easy Bleeding VTE Information - Inpt Only VTE Present on Admission: No VTE Mechan Device Prophylaxis: SCD's VTE Pharm Prophylaxis ordered?: No Reason prophylaxis not ordered:: Medical Contraindication - Patient with supratherapeutic INR, holding Coumadin with INR trending. Subjective: Patient seated at the ED bedside, fatigued appearing, no active bleeding from right scalp laceration. Objective: Physical Examination: General: awake, alert, oriented x 3 and cooperative, seated upright at the ED bedside, fatigued appearance, no obvious distress. Skin: normal color, turgor, no icterus, cyanosis except noted right scalp laceration, [address], no active bleeding. HEENT: Right lateral scalp laceration, small, 3 juni, no active bleeding/NC, EOMI, PERRLA, moderately dry MM, no carotid bruits or JVD noted. Lungs: Diminished breath sounds, greater bases, normal effort, no rales, ronchi or wheezing. Heart: Regular rate and rhythm; no gallop, rub audible. Abdomen: soft, NTTP, ND, mildly hyperactive BS, no HSM. Extremities: no cyanosis, clubbing, or edema. Neurological: patient awake, alert, oriented as noted; cognitive function intact; pupils equally reactive to light and accomodation; cranial nerves II-XII grossly normal, moving all 4 extremities, no focal deficits, strength moderately to severely global decrease secondary to acute presentation and complaints. Psychiatric: affect appears fatigued otherwise normal, no acute evidence of depressive or anxiety feelings. - Physical Exam Vitals/I&O's: Vital Signs Temp Pulse Resp BP Pulse Ox 97.2 F L 90 16 100/70 100 03/20/20 16:25 03/20/20 19:11 03/20/20 19:11 03/20/20 19:11 03/20/20 19:11 Oxygen Delivery Method Room Air Weight: 132 lb Body Mass Index (BMI) 24.1 Microbiology Past 72 Hours 03/20/20 17:25 Mucosa - Nose SARS-CoV-2 Antigen (Rapid) - Final Laboratory Results 03/20/20 17:40: WBC 8.6, RBC 4.92, Hgb 13.9, Hct 43.3, MCV 88.0, MCH 28.3, MCHC 32.1, RDW Std Deviation 46.3 H, RDW Coeff of Slava 14.3, Plt Count 254, MPV 10.1, Immature Gran % (Auto) 0.800, Neut % (Auto) 61.8, Lymph % (Auto) 16.2 L, [place] % (Auto) 5.5, Eos % (Auto) 15.3 H, Baso % (Auto) 0.4, Absolute Neuts (auto) 5.3, Absolute Lymphs (auto) 1.39, Nucleated RBC % 0 03/20/20 17:40: Sodium 135 L, Potassium 3.7, Chloride 100, Carbon Dioxide 28.0, Anion Gap 7, BUN 36 H, Creatinine 1.41 H, Estim Creat Clear Calc 26.85, Est GFR (MDRD) Af Amer 47 L, Est GFR (MDRD) Non-Af 38 L, BUN/Creatinine Ratio 25.5 H, Glucose 72 L, Calcium 11.7 H, Troponin I 0.020 03/20/20 17:40: PT 38.4 H, INR 3.9 H* Assessment/Plan All Active Problems (Last Reviewed 09/24/19 @ 14:[address] Torsten Vann MD) Syncope (Acute) Acute electrocardiogram changes (Acute) Hypoglycemia (Acute) History of non-ST elevation myocardial infarction (NSTEMI) (Resolved 04/2009) History of pulmonary embolism (Resolved) Pyelonephritis, acute (Resolved) Sepsis (Resolved) Essential (primary) hypertension (Ruled-out) The patient is a 74 y/o F w/ PMHx: CKD stage III, HTN, HLD, Hx DVTs/PE on coumadin, Hx NSTEMI, [place]'s disease, Known orthostatic hypotension, Hx renal CA s/p partial R nephrectomy and Hx L nephrectomy for donation who presents to the [facility] ED on 03/20/20 with history of syncopal event following an unfortunate hitting the side of her head with no specific loss of consciousness with fall with laceration to the right posterior scalp, on Coumadin therapy, prompting ED evaluation with recent generalized illness, body aches, mild cough without dyspnea with 1 day of loose stools with poor appetite with negative Covid testing. 1. Syncopal Event with EKG changes, complicated by Orthostatic Hypotension: EKG w/ SR inferior lateral T wave inversions new from October with no associated chest pain, CXR w/ no acute cardiopulmonary findings, CT head with no acute intracranial findings, initial trop normal. Will admit to PCU, place on a monitored bed to assure no acute myocardial infarction with serial cardiac enzymes and EKGs. Will maintain on fall precautions, pending orthostatic VS in the ED and suspect will be altered, if positive will obtain admission orthostatic in AM, requested to be obtained in the ED additionally, ECHO most recently noted 08/13/2018 therefore request repeat with at that time noted normal LV size, normal LV systolic function, EF 55%, stage I diastolic dysfunction. PT/OT consultation to ascertain stability and discharge needs. Will consult Cardiology given EKG changes and presentation history. Given syncopal history if orthostatics not marked appearing may need to consider further etiologies including consideration for D-dimer as pulmonary emboli can present with syncopal events. 2. Hypoglycemia: Possibly contributing to acute presentation in addition to EKG changes as noted, will obtain HgBA1c. 3. Supratherapeutic INR: Will hold coumadin, trending INR and add back once appropriate. 4. History NSTEMI: Holding Coumadin given supratherapeutic INR, not on beta- debo or BIMAL/ARB secondary to orthostatic hypotension likely significant given history review, continue statin therapy. 5. History recurrent DVTs, PE: Unclear if hypercoagulable state, holding Coumadin given supratherapeutic INR, continue to daily monitor INRs and resume once appropriate. 6. History of renal cancer: Patient status post right partial nephrectomy, remission. 7. Hypertension: Patient with reported history of however concurrent orthostatic hypotension, not on regimen, monitor, as needed IV hydralazine cautiously. 8. Hyperlipidemia: Continue home statin regimen. 9. Kyler's disease: We will continue patient Florinef regimen as well as low- dose prednisone oral therapy. 10. Chronic Kidney Disease Stage III: Patient status post partial right nephrectomy and also left nephrectomy for donation, admission BUN/Cr 36/1.41, baseline renal function 1.2-1.4 primarily, repeat BMP in AM. 11. DVT prophylaxis: SCDs, holding Coumadin given supratherapeutic INR, daily and INR trending. 12. CODE status: Patient does not have healthcare power of retouching operator set up but does have a living will and has previously discussed these items with her . Encouraged her to review this with case management/social work for assistance with information for setting up healthcare power of retouching operator. Discussed CODE status at length including difference between FULL code, DNR-CCA and DNR-CC status. Following discussions about the differences in these status, requested DNR-CCA, no intubation. Advanced Care Planning Face to Face Time: 16 minutes. OBSV E&M: 19047 Initial observation care L3 Procedures: 13192 Advncd Care Plan 30 Min
[2020-03-20] MEDS: Lidocaine 1% (20 ml mdv) 20 ML Vial INFILT (19:49)
[2020-03-20] MEDS: 0.9% Normal Saline 1,000 ML 999 ML IV (20:14)
--- NOTE | 2020-03-20 20:47 | ED.RN ---
called pt's daughter, Fide to update on admission.
--- NOTE | 2020-03-20 21:15 | ECHOD_ITS ---
Reason For Study: Syncope Procedure This was a 2D Doppler, Color Flow transthoracic echocardiogram. Exam performed portable in patient room. Left Ventricle Normal LV size. The estimated ejection fraction is 55 %. Diastolic function is indeterminate. No regional wall motion abnormalities noted. Right Ventricle Normal right ventricle. Normal systolic function. Atria Normal left atrium. Normal right atrium. No doppler evidence for ASD. Mitral Valve There is no mitral valve stenosis. Mild (1+) mitral valve insufficiency. Tricuspid Valve There is no tricuspid stenosis. Moderate (2+) tricuspid valve insufficiency. Pulmonary artery systolic pressure is 40 mmHg. Aortic Valve Trisinus/trileaflet aortic valve. There is no aortic stenosis. No aortic valve insufficiency. Pulmonic Valve There is no pulmonic valvular stenosis. No pulmonic valve insufficiency. Great Vessels Normal aortic root. Pericardium/Pleural No pericardial effusion. MMode/2D Measurements & Calculations LVIDd: 3.0 cm IVSd: 1.0 cm Ao root diam: 3.5 cm LVIDs: 1.8 cm LVPWd: 0.95 cm RVDd: 3.6 cm FS: 37.8 % LAV(MOD-bp): 29.2 ml LA A4 area: 11.9 cm2 LA dimension(2D): 3.4 cm LAV(MOD-bp) Indexed: 18.2 ml/m2 LAV(MOD-sp2): 38.4 ml LAV(MOD-sp4): 22.8 ml RA A4 area: 16.4 cm2 Doppler Measurements & Calculations MV E max henry: 67.3 cm/sec Lat Peak E' Henry: 8.3 cm/sec Med Peak E' Henry: 7.4 cm/sec MV A max henry: 107.6 cm/sec E/E' lat: 8.1 E/E' med: 9.0 MV E/A: 0.62 Ao V2 max: 157.1 cm/sec LV V1 max: 110.5 cm/sec PA V2 max: 110.5 cm/sec Ao max P.9 mmHg LV V1 max P.9 mmHg TR max henry: 277.1 cm/sec TR max P.8 mmHg Interpretation Summary The estimated ejection fraction is 55 %. Diastolic function is indeterminate. Mild (1+) mitral valve insufficiency. Moderate (2+) tricuspid valve insufficiency. Ordering Physician: Karin Fontaine Referring Physician: Amos Fulton M.D. Performed By: Alka Manriquez RDCS
[2020-03-20 21:44] LABS: Magnesium 1.7 mg/dL (1.6-2.6)
[2020-03-20 22:11] LABS: Hemoglobin A1c 5.5 % (3.8-5.6)
[2020-03-20] MEDS: 0.9% Saline Lock 10 ML Syringe IV (22:16)
[2020-03-20] MEDS: 0.9% Normal Saline 1,000 ML 125 ML IV (22:16)
[2020-03-20] MEDS: Midodrine HCl 5 MG Tablet 10 MG PO (22:16)
[2020-03-20] MEDS: Gabapentin 600 MG Tablet PO (22:17)
[2020-03-20] MEDS: predniSONE 1 MG Tablet 2 MG PO (22:17)
[2020-03-20] MEDS: Famotidine 20 MG Tablet PO (22:17)
[2020-03-20] MEDS: Atorvastatin Calcium 10 MG Tablet PO (22:17)
[2020-03-21] VITALS (9 sets, daily range): BP systolic 90–122; BP diastolic 59–76; PULSE 70–100; RESP 18–20; TEMP 36.4–37.2; O2SAT 94–97
--- NOTE | 2020-03-21 00:48 | PCS.PANDOC ---
PANDEMIC DOCUMENTATION INITIATED: Date: 03/20/20 Time: 21:15
[2020-03-21] MEDS: Midodrine HCl 5 MG Tablet 10 MG PO ×3 (05:57→22:22)
[2020-03-21] MEDS: 0.9% Normal Saline 1,000 ML 125 ML IV ×3 (05:57→22:20)
[2020-03-21 08:03] LABS: Absolute Lymphocyte Count 0.98 X10^3/uL (0.83-4.51); Absolute Neutrophil Count 7.1 X10^3/uL (2.0-7.7); Basophil# 0.02 X10^3/uL; Basophil% 0.2 % (0-1); Eosinophils% 13.2 % (0-5); Hematocrit 39.5 % (37-47); Hemoglobin 12.6 g/dL (12.0-15.0); Lymphocyte # 0.98 X10^3/ul (4.0); Lymphocyte % 9.9 % (19-41); Mean Corp Hgb Conc 31.9 g/dL (32-36); Mean Corpuscular Hgb 27.9 pg (27.0-32.0); Mean Corpuscular Volume 87.4 fL (81-99); Mean Platelet Vol. 10.3 fl (6.2-12.0); Monocyte# 0.43 X10^3/uL; Monocyte% 4.4 % (0-10); NRBC Flagged by Analyzer 0 % (0-5); Neutrophil # 7.08 X10^3/uL (2.7-7.7); Neutrophil % 71.6 % (47-70); Platelet Count 299 K/mm3 (150-450); RBC Distribution Width CV 14.6 % (11.6-14.6); Red Blood Count 4.52 M/mm3 (4.2-5.4); White Blood Count 9.9 K/mm3 (4.4-11.0)
--- NOTE | 2020-03-21 08:21 | PN_ITS ---
Patient Problems: Active and Suspected Problems (Last Reviewed 09/24/19 @ 14:[address] Torsten Vann MD) Syncope (Acute) Acute electrocardiogram changes (Acute) Hypoglycemia (Acute) Reason for Visit: Syncopal episode Scalp laceration following fall Subjective: Patient is a 74-year-old lady who did suffer a syncopal fall hitting the right side of her head. Presented to the emergency department admitted to a monitored bed for further management Objective: GENERAL: cooperative HEENT: Sutured laceration on the right temporal region EYES; Anicteric, Normal Conjunctiva NECK; supple, normal thyroid, RESPIRATORY: Diminished to auscultation CARDIOVASCULAR: Regular S1 S2, GI: soft, normoactive bowel sounds, : No Renal angle tenderness; EXTREMITIES: No edema, no clubbing, MUSCULOSKELETAL: no muscle waisting NEURO: Awake; no lateralizing signs. SKIN: No Rash PSYCH; Flat affect Vitals/I&O's: Vital Signs Temp Pulse Resp BP Pulse Ox 98.6 F 79 18 97/59 L 94 03/21/20 03:30 03/21/20 07:00 03/21/20 06:15 03/21/20 03:30 03/21/20 06:15 Oxygen Delivery Method Room Air Weight: 65.8 kg Body Mass Index (BMI) 25.0 Orthostatic Vital Signs Start: 03/21/20 04:20 Freq: q24h Status: Active Protocol: Activity Type Activity Date Activity User E-Sign Co-Sign Detail Recorded Client Recorded Date Recorded By Document 03/21/20 03:30 [facility] [id number] 03/21/20 04:20 [facility] 03/21/20 03:30 Orthostatic Vitals Standing -Blood Pressure (90/60-120/80) 118/76 -Extremity Use Right Arm -Pulse Rate (60-100) 100 Sitting -Blood Pressure (90/60-120/80) 90/61 -Extremity Use Right Arm -Pulse Rate (60-100) 95 Lying -Blood Pressure (90/60-120/80) 97/59 L -Extremity Use Right Arm -Pulse Rate (60-100) 92 Intake and Output for Last 24 Hours 03/19/20 03/20/20 03/21/20 23:59 23:59 23:59 Intake Total 1500 / 1720 1180.42 / 1180.42 Balance 1500 / 1720 1180.42 / 1180.42 Microbiology Past 72 Hours 03/20/20 17:25 Mucosa - Nose SARS-CoV-2 Antigen (Rapid) - Final Laboratory Results 03/20/20 17:40: WBC 8.6, RBC 4.92, Hgb 13.9, Hct 43.3, MCV 88.0, MCH 28.3, MCHC 32.1, RDW Std Deviation 46.3 H, RDW Coeff of Slava 14.3, Plt Count 254, MPV 10.1, Immature Gran % (Auto) 0.800, Neut % (Auto) 61.8, Lymph % (Auto) 16.2 L, Foster % (Auto) 5.5, Eos % (Auto) 15.3 H, Baso % (Auto) 0.4, Absolute Neuts (auto) 5.3, Absolute Lymphs (auto) 1.39, Nucleated RBC % 0 03/20/20 17:40: Sodium 135 L, Potassium 3.7, Chloride 100, Carbon Dioxide 28.0, Anion Gap 7, BUN 36 H, Creatinine 1.41 H, Estim Creat Clear Calc 26.85, Est GFR (MDRD) Af Amer 47 L, Est GFR (MDRD) Non-Af 38 L, BUN/Creatinine Ratio 25.5 H, Glucose 72 L, Calcium 11.7 H, Troponin I 0.020 03/20/20 17:40: PT 38.4 H, INR 3.9 H* 03/20/20 17:40: Magnesium 1.7 03/20/20 17:40: Hemoglobin A1c 5.5 03/20/20 21:52: Troponin I 0.020 03/21/20 00:05: Troponin I 0.026 03/21/20 07:39: WBC 9.9, RBC 4.52, Hgb 12.6, Hct 39.5, MCV 87.4, MCH 27.9, MCHC 31.9 L, RDW Std Deviation 47.0 H, RDW Coeff of Slava 14.6, Plt Count 299, MPV 10.3, Immature Gran % (Auto) 0.700, Neut % (Auto) 71.6 H, Lymph % (Auto) 9.9 L, Foster % (Auto) 4.4, Eos % (Auto) 13.2 H, Baso % (Auto) 0.2, Absolute Neuts (auto) 7.1, Absolute Lymphs (auto) 0.98, Nucleated RBC % 0 03/21/20 07:39: PT Cancelled, INR Cancelled 03/21/20 07:39: Sodium Pending, Potassium Pending, Chloride Pending, Carbon Dioxide Pending, Anion Gap Pending, BUN Pending, Creatinine Pending, Est GFR (MDRD) Af Amer Pending, Est GFR (MDRD) Non-Af Pending, BUN/Creatinine Ratio Pending, Glucose Pending, Calcium Pending, Total Bilirubin Pending, AST Pending, ALT Pending, Alkaline Phosphatase Pending, Total Protein Pending, Albumin Pending Current Medications Acetaminophen (Acetaminophen 325 Mg Tablet) 650 mg PO Q6H PRN PRN PRN Reason: Pain Score 1-10/Temp > 100.7 F Al Hydroxide/Mg Hydroxide (Mag Hydrox/Al Hydrox/Simeth 30 Ml Udc) 30 ml PO Q6H PRN PRN PRN Reason: Gastric Burning Albuterol Sulfate (Albuterol 2.5 Mg/3 Ml Vial.Neb.) 2.5 mg INHALATION Q2H PRN PRN PRN Reason: Dyspnea, wheezing Atorvastatin Calcium (Atorvastatin Calcium 10 Mg Tablet) 10 mg PO QHS [facility] Last Admin: 03/20/20 22:17 Dose: 10 mg Documented by: Famotidine (Famotidine 20 Mg Tablet) 20 mg PO BID [facility] Last Admin: 03/20/20 22:17 Dose: 20 mg Documented by: Fludrocortisone Acetate (Fludrocortisone Acetate 0.1 Mg Tablet) [facility] Gabapentin (Gabapentin 600 Mg Tablet) 600 mg PO QHS [facility] Last Admin: 03/20/20 22:17 Dose: 600 mg Documented by: Gabapentin (Gabapentin 300 Mg Capsule) 300 mg PO DAILY [facility] Guaifenesin (Guaifenesin 10 Ml Udc (200mg/10ml)) 20 ml PO Q4H PRN PRN PRN Reason: COUGH Hydralazine HCl (Hydralazine 20 Mg/Ml Vial) 10 mg IV Q4H PRN PRN PRN Reason: SBP > 160 Sodium Chloride () 1,000 mls @ 125 mls/hr IV .Q8H [facility] Last Admin: 03/21/20 05:57 Dose: 125 mls/hr Documented by: Magnesium Hydroxide (Magnesium Hydroxide 30 Ml Udc) 30 ml PO DAILY PRN PRN PRN Reason: Constipation Melatonin (Melatonin 3 Mg Tablet) 3 mg PO QHS PRN PRN PRN Reason: INSOMNIA Midodrine (Midodrine Hcl 5 Mg Tablet) 10 mg PO TID [facility] Last Admin: 03/21/20 05:57 Dose: 10 mg Documented by: Morphine Sulfate (Morphine 2 Mg/Ml Syringe) 2 mg IV Q3H PRN PRN PRN Reason: Pain Score 6-10 Ondansetron HCl (Ondansetron 4 Mg/2 Ml Vial) 4 mg IV Q8H PRN PRN PRN Reason: NAUSEA/VOMITING Oxycodone HCl (Oxycodone 5 Mg Tablet) 5 mg PO Q4H PRN PRN PRN Reason: Pain Score 4-5 Prednisone (Prednisone 1 Mg Tablet) 2 mg PO QHS [facility] Last Admin: 03/20/20 22:17 Dose: 2 mg Documented by: Prochlorperazine Edisylate (Prochlorperazine 10 Mg/2 Ml Vial) 5 mg IV Q4H PRN PRN PRN Reason: Breakthrough Nausea/Vomiting Psyllium Hydrophilic Mucilloid (Psyllium 1 Packet) 1 packet PO DAILY PRN PRN PRN Reason: Constipation Senna/Docusate Sodium (Senna/Docusate Sodium 1 Tablet) 2 tablet PO BID PRN PRN PRN Reason: Constipation Sodium Chloride (0.9% Saline Lock 10 Ml Syringe) 10 - 40 ml IV UD PRN PRN Reason: SALINE FLUSH Last Admin: 03/20/20 22:16 Dose: 10 ml Documented by: Throat Lozenges (Benzocaine/Menthol 1 Lozenge) 1 lozenge MUCOUS MEM Q2H PRN PRN PRN Reason: SORE THROAT STROKE Vital Signs/Narrative: Vital Signs Pulse Resp Pulse Ox 03/21/20 07:00 79 03/21/20 06:15 18 94 Medical Necessity - Tobacco Use Smoking Status: Never smoker Tobacco Use: Non-smoker Assessment/Plan All Active Problems (Last Reviewed 09/24/19 @ 14:[address] Torsten Vann MD) Syncope (Acute) Acute electrocardiogram changes (Acute) Hypoglycemia (Acute) History of non-ST elevation myocardial infarction (NSTEMI) (Resolved 04/2009) History of pulmonary embolism (Resolved) Pyelonephritis, acute (Resolved) Sepsis (Resolved) Essential (primary) hypertension (Ruled-out) Patient is a 74-year-old lady who did suffer a syncopal fall hitting the right side of her head. Presented to the emergency department admitted to a monitored bed for further management 1. Syncope -Admitted to monitored bed for continuous telemetry monitoring. As part of patient's management requested for orthostatic every shift, serial cardiac enzymes and 2D echo 2. Syncopal fall with closed head injury -Patient did sustain a scalp laceration which was sutured in the ED 3. Acute kidney injury ?Suspected to be secondary to dehydration patient creatinine on admission was 1.41 resuscitated with IV fluids creatinine down to 0.9 4. Hypoglycemia -Was found to be relatively hypoglycemic with glucose level of 72. Placed on D5 5. History of recurrent DVT/PE ?Patient is on Coumadin; INR was elevated on admission Coumadin held with subsequent monitoring of daily INR 6. History of renal CA ?Status post partial nephrectomy currently in remission 7. Dyslipidemia -Patient is on statin therapy, continued at home dose 8. [place]'s disease ?Patient is on fludrocortisone and prednisone did continue 9. Peripheral polyneuropathy ?Patient is on gabapentin 10. Vitamin D deficiency ?Patient is on calcium with vitamin D3 did continue 11. DVT prophylaxis ?Patient is on Coumadin with elevated INR no need for additional measures OBSV E&M: 34008 Initial observation care L3
[2020-03-21] MEDS: Famotidine 20 MG Tablet PO ×2 (08:30→22:21)
[2020-03-21] MEDS: Gabapentin 300 MG Capsule PO ×2 (08:30→22:21)
[2020-03-21] MEDS: Fludrocortisone Acetate 0.1 MG Tablet PO (08:30)
[2020-03-21 08:39] LABS: Albumin, Serum 1.8 g/dL (3.2-5.0); BUN 27 mg/dL (7-18); BUN/Creat Ratio 29.9 RATIO (10-20); EST Glomerular Filtration Rate 64 mL/min (>60); Est Glom Filt Rate - Afr Amer 78 mL/min (>60); Estimated Creatinine Clearance 42.06 ml/min; Globulin 2.6 g/dL (2.2-4.2); Glucose 80 mg/dL (74-106); Protein, Total 4.4 g/dL (6.4-8.2)
[2020-03-21 08:40] LABS: ALB/GLOB Ratio 0.7 RATIO (0.9-2.4); AST(SGOT) 74 U/L (15-37); Alanine Aminotransfer ALT/SGPT 52 U/L (13-56); Alkaline Phosphatase 56 U/L (45-117); Anion Gap 25 (5-15); Calcium,Total 8.8 mg/dL (8.5-10.1); Chloride 98 mmol/L (98-107); Potassium 3.8 mmol/L (3.5-5.1); Sodium Level 142 mmol/L (136-145)
[2020-03-21 09:03] LABS: Prothrombin Time (Protime)PT. 40.7 SECONDS (11.7-14.9)
[2020-03-21 09:16] LABS: International Normalized Ratio 4.2
--- NOTE | 2020-03-21 16:33 | CON.PCM_ITS ---
Reason for Consult Date of Consultation: 03/21/20 Reason for Consultation: syncope History of Present Illness: The patient is a 74 year old F [admitted after syncopal episode. Patient got up from a sitting position and went to her kitchen and started putting away dishes. She suddenly passed out and hit her head. She had a scalp laceration that needed to be sutured. Patient has history of [place]'s disease and her medications are being adjusted. She does not feel lightheaded when her blood pressure is low but feels weak. She had mentioned this to her primary care physician and her medication was adjusted and it was supposed to be picked up on the day she had the syncopal episode. She is on prednisone and Florinef. She states that her oral intake has been less over the past few days. She is also cautious about how much water she drinks and states that she takes only 8 to 16 ounces a day as she has bladder incontinence. Midodrine was added to the patient's regimen this admission. ] Past Medical History Allergies/Adverse Reactions: Allergies ciprofloxacin [From Cipro] Allergy (Verified 03/20/20 21:35) Rash Penicillins Allergy (Verified 03/20/20 21:35) Rash Home Medications: Ambulatory Orders Medication Instructions Recorded Calcium Carbonate/Vitamin D3 1 ea PO DAILY 03/24/16 [Calcium 500-Vit D3 200 Tablet] L.acidoph,Paracasei, B.lactis 1 ea PO DAILY 03/24/16 [Probiotic] nitroglycerin 0.4 mg sublingual 0.4 mg SUBLINGUAL Q5-15M PRN 05/21/18 tablet Simvastatin 20 mg PO QHS 11/11/19 Warfarin [Coumadin] 3 mg PO SUTUTHSA 11/11/19 Fludrocortisone Acetate [Florinef] 0.1 mg PO DAILY 11/20/19 Cholecalciferol (Vitamin D3) 1,000 unit PO DAILY 03/20/20 [Vitamin D3] Cyanocobalamin (Vitamin B-12) 1,000 mcg PO DAILY 03/20/20 [B-12] Gabapentin 300 mg PO DAILY 03/20/20 Gabapentin 600 mg PO QHS 03/20/20 Prednisone 2 mg PO QHS 03/20/20 Warfarin Sodium 4 mg PO MOWEFR 03/20/20 Past Medical History (Chronic Problems): Chronic Problems (Last Reviewed 09/24/19 @ 14:[address] 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 Torsten Vann MD) Father CVA (cerebral vascular accident) Mother Myocardial infarction, Onset Age: 87 History Items: High Cholesterol, Heart Disease, Hypertension Paternal Family History: Family History (Last Reviewed 09/24/19 @ 14:[address] Torsten Vann MD) Father CVA (cerebral vascular accident) Mother Myocardial infarction, Onset Age: 87 History Items: Stroke Sibling Family History: Family History (Last Reviewed 09/24/19 @ 14:[address] Torsten Vann MD) Father CVA (cerebral vascular accident) Mother Myocardial infarction, Onset Age: 87 History Items: Renal Disease Lives: Spouse/ Significant Other Smoking Status: Never smoker Tobacco Use: Non-smoker Alcohol: None Drugs: None Objective: Vital Signs Temp Pulse Resp BP Pulse Ox 98.5 F 87 18 122/76 H 95 03/21/20 14:08 03/21/20 14:08 03/21/20 14:08 03/21/20 14:08 03/21/20 14:08 Oxygen Delivery Method Room Air Weight: 145 lb 1.027 oz Body Mass Index (BMI) 25.0 Orthostatic Vital Signs Start: 03/21/20 04:20 Freq: q24h Status: Active Protocol: Activity Type Activity Date Activity User E-Sign Co-Sign Detail Recorded Client Recorded Date Recorded By Document 03/21/20 03:30 [facility] [id number] 03/21/20 04:20 [facility] 03/21/20 03:30 Orthostatic Vitals Standing -Blood Pressure (90/60-120/80) 118/76 -Extremity Use Right Arm -Pulse Rate (60-100) 100 Sitting -Blood Pressure (90/60-120/80) 90/61 -Extremity Use Right Arm -Pulse Rate (60-100) 95 Lying -Blood Pressure (90/60-120/80) 97/59 L -Extremity Use Right Arm -Pulse Rate (60-100) 92 Intake and Output for Last 24 Hours 03/19/20 03/20/20 03/21/20 23:59 23:59 23:59 Intake Total 1500 / 1720 2180.42 / 2180.42 Balance 1500 / 1720 2180.42 / 2180.42 General: Awake, Alert, Oriented x 3 HEENT: Atraumatic Oral: Moist Mucosa Neck: Supple Lungs: Clear to auscultation Cardiovascular: Regular Rhythm Abdomen: Soft Extremities: No edema Skin: No Rashes Psych/Mental Status: Appropriate 03/20/20 17:40: WBC 8.6, RBC 4.92, Hgb 13.9, Hct 43.3, MCV 88.0, MCH 28.3, MCHC 32.1, Plt Count 254, MPV 10.1, Immature Gran % (Auto) 0.800, Neut % (Auto) 61.8, Lymph % (Auto) 16.2 L, Porter % (Auto) 5.5, Eos % (Auto) 15.3 H, Baso % (Auto) 0.4, Absolute Neuts (auto) 5.3, Nucleated RBC % 0 03/20/20 17:40: Sodium 135 L, Potassium 3.7, Chloride 100, Carbon Dioxide 28.0, Anion Gap 7, BUN 36 H, Creatinine 1.41 H, Est GFR (MDRD) Af Amer 47 L, Est GFR (MDRD) Non-Af 38 L, BUN/Creatinine Ratio 25.5 H, Glucose 72 L, Calcium 11.7 H, Troponin I 0.020 03/20/20 17:40: PT 38.4 H, INR 3.9 H* 03/20/20 17:40: Magnesium 1.7 03/20/20 17:40: Hemoglobin A1c 5.5 03/20/20 21:52: Troponin I 0.020 03/21/20 00:05: Troponin I 0.026 03/21/20 07:39: WBC 9.9, RBC 4.52, Hgb 12.6, Hct 39.5, MCV 87.4, MCH 27.9, MCHC 31.9 L, Plt Count 299, MPV 10.3, Immature Gran % (Auto) 0.700, Neut % (Auto) 71.6 H, Lymph % (Auto) 9.9 L, Porter % (Auto) 4.4, Eos % (Auto) 13.2 H, Baso % (Auto) 0.2, Absolute Neuts (auto) 7.1, Nucleated RBC % 0 03/21/20 07:39: PT Cancelled, INR Cancelled 03/21/20 07:39: Sodium 142, Potassium 3.8, Chloride 98, Carbon Dioxide 19.0 L, Anion Gap 25 H, BUN 27 H, Creatinine 0.90, Est GFR (MDRD) Af Amer 78, Est GFR (MDRD) Non-Af 64, BUN/Creatinine Ratio 29.9 H, Glucose 80, Calcium 8.8, Total Bilirubin 0.40 03/21/20 08:28: PT 40.7 H, INR 4.2 H* Rhythm: EKG: ECHO: Stress Test: Cardiac Cath: PCI: CT Surgery: Holter monitor: EPS: PPM: CXR: Chest CT Scan: Assessment/Plan 1. Syncope: Appears to be orthostatic and could be related to poor intake resulting in dehydration. Patient also has [place]'s disease. Patient's creatinine on admission was 1.4 and it has come down to 0.9 today. Advised patient to maintain adequate hydration. In the meantime it is reasonable to add midodrine as well. continue telemetry monitoring.
--- NOTE | 2020-03-21 17:07 | CM.UR ---
MARSAHLL form completed. instructed on OBS vs IP. Patient denies any questions. Gave Patient copy of form and placed signed original in chart. Jo Batista RN, CCM.
[2020-03-21] MEDS: Atorvastatin Calcium 10 MG Tablet PO (22:21)
[2020-03-21] MEDS: predniSONE 1 MG Tablet 2 MG PO (22:22)
[2020-03-21] MEDS: Gabapentin 600 MG Tablet PO (22:29)
[2020-03-21] MEDS: Acetaminophen 325 MG Tablet 650 MG PO (22:46)
[2020-03-22] VITALS (7 sets, daily range): BP systolic 80–99; BP diastolic 50–63; PULSE 66–92; RESP 16–18; TEMP 36.6–37; O2SAT 93–96
--- NOTE | 2020-03-22 02:45 | PCS.PANDOC ---
PANDEMIC DOCUMENTATION INITIATED: Date: 03/20/20 Time: 16:25
[2020-03-22 04:04] LABS: Hematocrit 37.8 % (37-47); Hemoglobin 12.2 g/dL (12.0-15.0); Mean Corp Hgb Conc 32.3 g/dL (32-36); Mean Corpuscular Hgb 28.3 pg (27.0-32.0); Mean Corpuscular Volume 87.7 fL (81-99); Mean Platelet Vol. 10.2 fl (6.2-12.0); Platelet Count 241 K/mm3 (150-450); RBC Distribution Width CV 14.7 % (11.6-14.6); RBC Distribution Width SD 47.8 fl (35.1-43.9); Red Blood Count 4.31 M/mm3 (4.2-5.4); White Blood Count 8.6 K/mm3 (4.4-11.0)
[2020-03-22 04:14] LABS: Prothrombin Time (Protime)PT. 30.4 SECONDS (11.7-14.9)
[2020-03-22] MEDS: 0.9% Normal Saline 1,000 ML 125 ML IV (04:21)
[2020-03-22 04:22] LABS: BUN 25 mg/dL (7-18); BUN/Creat Ratio 24.3 RATIO (10-20); Chloride 113 mmol/L (98-107); Creatinine, Serum 1.03 mg/dL (0.55-1.02); EST Glomerular Filtration Rate 55 mL/min (>60); Est Glom Filt Rate - Afr Amer 67 mL/min (>60); Estimated Creatinine Clearance 36.75 ml/min; Glucose 115 mg/dL (74-106); Magnesium 1.6 mg/dL (1.6-2.6); Potassium 3.7 mmol/L (3.5-5.1); Sodium Level 141 mmol/L (136-145)
[2020-03-22] MEDS: Midodrine HCl 5 MG Tablet 10 MG PO ×2 (04:22→13:28)
[2020-03-22 04:23] LABS: Anion Gap 5 (5-15)
[2020-03-22] MEDS: Fludrocortisone Acetate 0.1 MG Tablet PO (08:57)
[2020-03-22] MEDS: Famotidine 20 MG Tablet PO (08:57)
--- NOTE | 2020-03-22 10:51 | PCM.DC ---
- Discharge Diagnoses Current Active Problems: Current Active and Chronic Problems (Last Reviewed 09/24/19 @ 14:[address] Torsten Vann MD) Syncope (Acute) Acute electrocardiogram changes (Acute) Hypoglycemia (Acute) Recurrent deep vein thrombosis (DVT) (Chronic) Hyperlipidemia (Chronic) Orthostatic hypotension (Chronic) You will use the following diet at home:: No restrictions Allergies/Adverse Reactions: Allergies ciprofloxacin [From Cipro] Allergy (Verified 03/20/20 21:35) Rash Penicillins Allergy (Verified 03/20/20 21:35) Rash Medications to take at Discharge Calcium Carbonate/Vitamin D3 [Calcium 500-Vit D3 200 Tablet] 1 ea PO DAILY 03/24/16 L.acidoph,Paracasei, B.lactis [Probiotic] 1 ea PO DAILY 03/24/16 nitroglycerin 0.4 mg sublingual tablet 0.4 mg SUBLINGUAL Q5-15M PRN 05/21/18 Simvastatin 20 mg PO QHS 11/11/19 Fludrocortisone Acetate [Florinef] 0.1 mg PO DAILY 11/20/19 Cholecalciferol (Vitamin D3) [Vitamin D3] 1,000 unit PO DAILY 03/20/20 Cyanocobalamin (Vitamin B-12) [B-12] 1,000 mcg PO DAILY 03/20/20 Gabapentin 300 mg PO DAILY 03/20/20 Gabapentin 600 mg PO QHS 03/20/20 Prednisone 2 mg PO QHS 03/20/20 Acetaminophen [Tylenol Tablet] 650 mg PO Q6H PRN PRN tab 03/22/20 Midodrine HCl 10 mg PO TID #180 tab 03/22/20 Warfarin [Coumadin] 3 mg PO DAILY #0 03/22/20 The following prescriptions were given: Midodrine HCl 10 mg PO TID #180 tab Transmission Status: Pending to [facility] Primary Care Physician: Amos Fulton MD [Primary Care Provider] - Please follow up with your Primary Care Physician in: in 1 week Test Results: Test results from this visit will be discussed in further detail at your follow-up appointment, if applicable. Please Follow Up With: Jordan Marte MD When: in 2-4 weeks Proposed Discharge Date: 03/22/20
--- NOTE | 2020-03-22 10:53 | DS.PCM_ITS ---
Discharge Date and Diagnosis - Problem List Patient Problems: Active and Suspected Problems (Last Reviewed 09/24/19 @ 14:[address] Torsten Vann MD) Syncope (Acute) Acute electrocardiogram changes (Acute) Hypoglycemia (Acute) Date of Admission: 03/20/20 Date of Discharge: 03/22/20 - Primary Discharge Diagnosis Acute Problems: Active Problems (Last Reviewed 09/24/19 @ 14:[address] Torsten Vann MD) Syncope (Acute) Acute electrocardiogram changes (Acute) Hypoglycemia (Acute) - Secondary Discharge Diagnosis Chronic Problems: Chronic Problems (Last Reviewed 09/24/19 @ 14:[address] 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 Presented to the emergency department admitted to a monitored bed for further management 1. Syncope -Admitted to monitored bed for continuous telemetry monitoring. As part of patient's management requested for orthostatic every shift, serial cardiac enzymes and 2D echo. 2D echo demonstrated EF of 55% with no regional wall motion abnormalities noted. Patient was also seen in consultation by Dr. Jenkins with cardiology recommended addition of midodrine 10 mg p.o. 3 times daily to patient regimen. Patient was discharged home instructed to follow-up with PCP for removal of sutures as well as her primary supply chain vice president Dr. Marte in 2 to 4 weeks 2. Syncopal fall with closed head injury -Patient did sustain a scalp laceration which was sutured in the ED 3. Acute kidney injury ?Suspected to be secondary to dehydration patient creatinine on admission was 1.41 resuscitated with IV fluids creatinine down to 0.9 4. Hypoglycemia -Was found to be relatively hypoglycemic with glucose level of 72. Placed on D5 5. History of recurrent DVT/PE ?Patient is on Coumadin; INR was elevated on admission Coumadin held with subsequent monitoring of daily INR 6. History of renal CA ?Status post partial nephrectomy currently in remission 7. 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 Peripheral polyneuropathy ?Patient is on gabapentin 10. Vitamin D deficiency ?Patient is on calcium with vitamin D3 did continue 11. DVT prophylaxis ?Patient is on Coumadin with elevated INR no need for additional measures Patient Problems: Active and Suspected Problems (Last Reviewed 09/24/19 @ 14:[address] Torsten Vann MD) Syncope (Acute) Acute electrocardiogram changes (Acute) Hypoglycemia (Acute) Objective: GENERAL: cooperative HEENT: Sutured laceration on the right temporal region EYES; Anicteric, Normal Conjunctiva NECK; supple, normal thyroid, RESPIRATORY: Diminished to auscultation CARDIOVASCULAR: Regular S1 S2, GI: soft, normoactive bowel sounds, : No Renal angle tenderness; EXTREMITIES: No edema, no clubbing, MUSCULOSKELETAL: no muscle waisting NEURO: Awake; no lateralizing signs. SKIN: No Rash PSYCH; Flat affect - Physical Exam Vitals/I&O's: Vital Signs Temp Pulse Resp BP Pulse Ox 97.9 F 71 18 99/59 L 95 03/22/20 08:00 03/22/20 08:00 03/22/20 08:00 03/22/20 08:00 03/22/20 08:00 Oxygen Delivery Method Room Air Weight: 68.2 kg Body Mass Index (BMI) 25.0 Orthostatic Vital Signs Start: 03/21/20 04:20 Freq: q24h Status: Active Protocol: Activity Type Activity Date Activity User E-Sign Co-Sign Detail Recorded Client Recorded Date Recorded By Document 03/21/20 03:[address] [facility] [id number] 03/21/20 04:[address] [facility] 03/21/20 03:30 Orthostatic Vitals Standing -Blood Pressure (90/60-120/80) 118/76 -Extremity Use Right Arm -Pulse Rate (60-100) 100 Sitting -Blood Pressure (90/60-120/80) 90/61 -Extremity Use Right Arm -Pulse Rate (60-100) 95 Lying -Blood Pressure (90/60-120/80) 97/59 L -Extremity Use Right Arm -Pulse Rate (60-100) 92 Intake and Output for Last 24 Hours 03/20/20 03/21/20 03/22/20 23:59 23:59 23:59 Intake Total 1500 / 1720 3180.42 / 3180.42 752.08 / 752.08 Balance 1500 / 1720 3180.42 / 3180.42 752.08 / 752.08 Microbiology Past 72 Hours 03/20/20 17:25 Mucosa - Nose SARS-CoV-2 Antigen (Rapid) - Final Laboratory Results 03/22/20 03:57: WBC 8.6, RBC 4.31, Hgb 12.2, Hct 37.8, MCV 87.7, MCH 28.3, MCHC 32.3, RDW Std Deviation 47.8 H, RDW Coeff of Slava 14.7 H, Plt Count 241, MPV 10.2 03/22/20 03:57: PT 30.4 H, INR 3.0 03/22/20 03:57: Sodium 141, Potassium 3.7, Chloride 113 H, Carbon Dioxide 23.0, Anion Gap 5, BUN 25 H, Creatinine 1.03 H, Estim Creat Clear Calc 36.75, Est GFR (MDRD) Af Amer 67, Est GFR (MDRD) Non-Af 55 L, BUN/Creatinine Ratio 24.3 H, Glucose 115 H, Calcium 9.0, Magnesium 1.6 Current Medications Acetaminophen (Acetaminophen 325 Mg Tablet) 650 mg PO Q6H PRN PRN PRN Reason: Pain Score 1-10/Temp > 100.7 F Last Admin: 03/21/20 22:46 Dose: 650 mg Documented by: Al Hydroxide/Mg Hydroxide (Mag Hydrox/Al Hydrox/Simeth 30 Ml Udc) 30 ml PO Q6H PRN PRN PRN Reason: Gastric Burning Albuterol Sulfate (Albuterol 2.5 Mg/3 Ml Vial.Neb.) 2.5 mg INHALATION Q2H PRN PRN PRN Reason: Dyspnea, wheezing Atorvastatin Calcium (Atorvastatin Calcium 10 Mg Tablet) 10 mg PO QHS [facility] Last Admin: 03/21/20 22:21 Dose: 10 mg Documented by: Famotidine (Famotidine 20 Mg Tablet) 20 mg PO BID [facility] Last Admin: 03/22/20 08:57 Dose: 20 mg Documented by: Fludrocortisone Acetate (Fludrocortisone Acetate 0.1 Mg Tablet) [facility] Last Admin: 03/22/20 08:57 Dose: 0.1 mg Documented by: Gabapentin (Gabapentin 600 Mg Tablet) 600 mg PO QHS [facility] Last Admin: 03/21/20 22:29 Dose: 600 mg Documented by: Gabapentin (Gabapentin 300 Mg Capsule) 300 mg PO DAILY [facility] Last Admin: 03/21/20 22:21 Dose: 300 mg Documented by: Guaifenesin (Guaifenesin 10 Ml Udc (200mg/10ml)) 20 ml PO Q4H PRN PRN PRN Reason: COUGH Hydralazine HCl (Hydralazine 20 Mg/Ml Vial) 10 mg IV Q4H PRN PRN PRN Reason: SBP > 160 Sodium Chloride () 1,000 mls @ 125 mls/hr IV .Q8H [facility] Last Admin: 03/22/20 04:21 Dose: 125 mls/hr Documented by: Magnesium Hydroxide (Magnesium Hydroxide 30 Ml Udc) 30 ml PO DAILY PRN PRN PRN Reason: Constipation Melatonin (Melatonin 3 Mg Tablet) 3 mg PO QHS PRN PRN PRN Reason: INSOMNIA Midodrine (Midodrine Hcl 5 Mg Tablet) 10 mg PO TID [facility] Last Admin: 03/22/20 04:22 Dose: 10 mg Documented by: Morphine Sulfate (Morphine 2 Mg/Ml Syringe) 2 mg IV Q3H PRN PRN PRN Reason: Pain Score 6-10 Ondansetron HCl (Ondansetron 4 Mg/2 Ml Vial) 4 mg IV Q8H PRN PRN PRN Reason: NAUSEA/VOMITING Oxycodone HCl (Oxycodone 5 Mg Tablet) 5 mg PO Q4H PRN PRN PRN Reason: Pain Score 4-5 Prednisone (Prednisone 1 Mg Tablet) 2 mg PO QHS [facility] Last Admin: 03/21/20 22:22 Dose: 2 mg Documented by: Prochlorperazine Edisylate (Prochlorperazine 10 Mg/2 Ml Vial) 5 mg IV Q4H PRN PRN PRN Reason: Breakthrough Nausea/Vomiting Psyllium Hydrophilic Mucilloid (Psyllium 1 Packet) 1 packet PO DAILY PRN PRN PRN Reason: Constipation Senna/Docusate Sodium (Senna/Docusate Sodium 1 Tablet) 2 tablet PO BID PRN PRN PRN Reason: Constipation Sodium Chloride (0.9% Saline Lock 10 Ml Syringe) 10 - 40 ml IV UD PRN PRN Reason: SALINE FLUSH Last Admin: 03/20/20 22:16 Dose: 10 ml Documented by: Throat Lozenges (Benzocaine/Menthol 1 Lozenge) 1 lozenge MUCOUS MEM Q2H PRN PRN PRN Reason: SORE THROAT Discharge Diet: No Restrictions Home Medications: Medications to take at Discharge Calcium Carbonate/Vitamin D3 [Calcium 500-Vit D3 200 Tablet] 1 ea PO DAILY 03/24/16 L.acidoph,Paracasei, B.lactis [Probiotic] 1 ea PO DAILY 03/24/16 nitroglycerin 0.4 mg sublingual tablet 0.4 mg SUBLINGUAL Q5-15M PRN 05/21/18 Simvastatin 20 mg PO QHS 11/11/19 Fludrocortisone Acetate [Florinef] 0.1 mg PO DAILY 11/20/19 Cholecalciferol (Vitamin D3) [Vitamin D3] 1,000 unit PO DAILY 03/20/20 Cyanocobalamin (Vitamin B-12) [B-12] 1,000 mcg PO DAILY 03/20/20 Gabapentin 300 mg PO DAILY 03/20/20 Gabapentin 600 mg PO QHS 03/20/20 Prednisone 2 mg PO QHS 03/20/20 Acetaminophen [Tylenol Tablet] 650 mg PO Q6H PRN PRN tab 03/22/20 Midodrine HCl 10 mg PO TID #180 tab 03/22/20 Warfarin [Coumadin] 3 mg PO DAILY #0 03/22/20 Following Prescriptions Were Given to Patient: Midodrine HCl 10 mg PO TID #180 tab Transmission Status: Pending to [facility] Primary Care Physician: Amos Fulton MD [Primary Care Provider] - Please follow up with your Primary Care Physician in: in 1 week Please Follow Up With: Jordan Marte MD When: in 2-4 weeks Disposition: Home Minutes spent on discharge:: 35 Patient Condition:: Stable Medical Necessity - Tobacco Use Smoking Status: Never smoker Tobacco Use: Non-smoker Meaningful Use Info Meaningful Use Diagnoses (Choose all that apply): None applicable OBSV E&M: 24580 Observation care discharge
== END 2020-03-22 10:52 | disposition home or self-care (01) ==
LOC: ED 16:45 → PCU 20:12
PROVIDERS: Admitting Provider Family Medicine; Emergency Provider Emergency Medicine; PCP Internal Medicine; Visit Provider Internal Medicine
DX: R55 Syncope and collapse (principal); E16.2 Hypoglycemia, unspecified; S01.01XA Laceration without foreign body of scalp, initial encounter; I25.2 Old myocardial infarction; E78.5 Hyperlipidemia, unspecified; E27.1 Primary adrenocortical insufficiency; N18.30 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, stage 3 unspecified; N17.9 Acute kidney failure, unspecified; G62.9 Polyneuropathy, unspecified; E55.9 Vitamin D deficiency, unspecified; R32 Unspecified urinary incontinence; I12.9 Hypertensive chronic kidney disease with stage 1 through stage 4 chronic kidney disease, or unspecified chronic kidney disease; W19.XXXA Unspecified fall, initial encounter; Y93.9 Activity, unspecified; Y92.9 Unspecified place or not applicable; Y99.9 Unspecified external cause status; Z79.899 Other long term (current) drug therapy; Z79.52 Long term (current) use of systemic steroids; Z79.01 Long term (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; Z86.718 Personal history of other venous thrombosis and embolism; Z86.711 Personal history of pulmonary embolism; Z90.5 Acquired absence of kidney; Z85.528 Personal history of other malignant neoplasm of kidney
CPT/HCPCS: 12002; 36415; 70450; 71045; 80048; 80053; 83036; 83735; 84484; 85025; 85027; 85610; 87426; 93005; 93306; 96360; 96361; 97162; 97165; 97535; 97802; 99218; 99251; 99285; J7030; J7040; A4216; G0378; G0463

== ENCOUNTER 2020-04-02 14:02 | Inpatient (IN) | payer MEDICARE, SELFPAY ==
[2020-03-20 21:27] VITALS: BMI 25.0
[2020-04-02] VITALS (8 sets, daily range): BP systolic 86–139; BP diastolic 44–109; PULSE 91–100; RESP 14–18; TEMP 35.8–36.9; O2SAT 93–98; BMI 25.4; BMI 24.5; BMI 24.6
--- NOTE | 2020-04-02 14:21 | EKG12_ITS ---
Test Reason : Blood Pressure : / mmHG Vent. Rate : 093 BPM Atrial Rate : 093 BPM P-R Int : 152 ms QRS Dur : 086 ms QT Int : 360 ms P-R-T Axes : 049 -24 -09 degrees QTc Int : 447 ms Normal sinus rhythm Possible Left atrial enlargement Cannot rule out Anterior infarct , age undetermined Abnormal ECG Confirmed by AMANDA ZELAYA, RIGOBERTO ([id number]), editor farm journal AMA PETERSEN ([id number]) on 04/06/2020 12:29:27 P M Referred By: CL Confirmed By:VENTURA PATEL MD
--- NOTE | 2020-04-02 14:35 | ED.DCSUM_ITS ---
History of Present Illness Chief Complaint: Weakness Informant: Patient Narrative: 74-year-old female with past medical history of [place] presents with concern for fatigue. Patient has had low blood pressures at home. Was recently admitted to this hospital at the beginning of this month. Patient has had frequent falls at home. Denies any head injury. Denies any fever, chills, cough, shortness of breath, chest pain, abdominal pain. Patient states that she has had nausea with vomiting. Denies any urinary symptoms. Past Medical History - Allergies and Home Meds Allergies/Adverse Reactions: Allergies ciprofloxacin [From Cipro] Allergy (Verified 04/02/20 14:08) Rash Penicillins Allergy (Verified 04/02/20 14:08) Rash Prior records reviewed: Yes Past Medical History: - - addisons Surgical History: - - Right partial nephrectomy, left nephrectomy, bladder repair, abdominal hysterectomy, cholecystectomy, cataract surgery. Lives: With Family Smoking Status: Never smoker Alcohol: None Drugs: None - Family History Maternal Family History: Family History (Last Reviewed 04/02/20 @ 17:11 by Jacinda Harrison NP, PATIENT CARE DIRECTOR-C) Father CVA (cerebral vascular accident) Mother Myocardial infarction, Onset Age: 87 Family History: Reports: High Cholesterol, Heart Disease, Hypertension Paternal Family History: Family History (Last Reviewed 04/02/20 @ 17:11 by Jacinda Harrison NP, PATIENT CARE DIRECTOR-C) Father CVA (cerebral vascular accident) Mother Myocardial infarction, Onset Age: 87 Family History: Reports: Stroke Sibling Family History: Family History (Last Reviewed 04/02/20 @ 17:11 by Jacinda Harrison NP, PATIENT CARE DIRECTOR-C) Father CVA (cerebral vascular accident) Mother Myocardial infarction, Onset Age: 87 Family History: Reports: Renal Disease Review of Systems General: Reports: Malaise. Denies: Chills, Fever, Sweats Eyes: Denies: Visual changes - bilaterally, Diplopia ENT: Denies: Rhinorrhea, Sore throat Cardiovascular: Denies: Chest pain, Palpitations Respiratory: Denies: Dyspnea, Cough, Dyspnea on exertion Gastrointestinal: Denies: Abdominal pain, Nausea, Vomiting, Diarrhea, Melena, Hematochezia Genitourinary: Denies: Dysuria, Hematuria, Frequency Musculoskeletal: Denies: Back pain, Extremity Pain Skin: Denies: Rash, Wounds Neurological: Reports: Weakness. Denies: Headache, Numbness Physical Exam Vital Signs/Narrative: Vital Signs Temp Pulse Resp BP Pulse Ox 04/02/20 14:05 96.5 F L 100 18 86/44 L 97 Inital Vital Signs reviewed: Yes General: Well nourished, Well developed, No Acute Distress Head: Normocephalic, Atraumatic Eyes: Perrl, EOMI ENT: Moist mucous membranes, No rhinorrhea Neck: Supple, Nontender Cardiovascular: Regular rate, Regular rhythm, No murmurs Respiratory: No distress, CTA bilaterally, Chest nontender Abdomen: Soft, Nontender, Nondistended, Normal bowel sounds Back: Nontender, Normal Inspection Extremities: Nontender, No edema Skin: Normal color, No rash Neurological: Alert, Oriented x3, Cranial nerves II-XII grossly intact, Normal Strength, Normal Sensation Psychological: Normal affect, Normal Mood Diagnostic/Tx/Re-eval Chest X-Ray - ED: 1 View, Read by ED Physician, Read by Radiologist, Normal Clinical Impression(s) from Imaging Studies Chest X-Ray 04/02/20 15:05 IMPRESSION: Normal x-ray examination of the chest. Electronically Signed: William Long MD at 15:41 EST Tel , Service support , Brain CT 04/02/20 15:32 IMPRESSION: Normal unenhanced CT scan of the brain. Electronically Signed: William Long MD at 16:45 EST Tel , Service support , Laboratory Data 04/02/20 04/02/20 04/02/20 14:30 14:30 14:30 WBC 13.8 H RBC 5.26 Hgb 15.2 H Hct 47.2 H MCV 89.7 MCH 28.9 MCHC 32.2 RDW Std Deviation 51.4 H RDW Coeff of Slava 15.7 H Plt Count 389 MPV 10.4 Immature Gran % (Auto) 1.500 H Neut % (Auto) 77.3 H Lymph % (Auto) 12.0 L [place] % (Auto) 5.2 Eos % (Auto) 3.6 Baso % (Auto) 0.4 Absolute Neuts (auto) 10.6 H Absolute Lymphs (auto) 1.65 Nucleated RBC % 0 PT 68.7 H INR 8.1 H* APTT 91.2 H* Sodium 139 Potassium 3.7 Chloride 99 Carbon Dioxide 35.0 H Anion Gap 5 BUN 54 H Creatinine 1.87 H Estim Creat Clear Calc 20.24 Est GFR (MDRD) Af Amer 34 L Est GFR (MDRD) Non-Af 28 L BUN/Creatinine Ratio 28.9 H Glucose 123 H Lactic Acid Calcium 14.9 H* Total Bilirubin 0.80 AST 32 ALT 47 Alkaline Phosphatase 104 Troponin I < 0.015 Total Protein 6.3 L Albumin 2.9 L Globulin 3.4 Albumin/Globulin Ratio 0.9 Urine Color Urine Clarity Urine pH Ur Specific [place] Urine Protein Urine Glucose (UA) Urine Ketones Urine Occult Blood Urine Nitrite Urine Bilirubin Urine Urobilinogen Ur Leukocyte Esterase Urine RBC Urine WBC Ur Squamous Epith Cells Urine Bacteria Urine Mucus 04/02/20 04/02/20 14:30 14:35 WBC RBC Hgb Hct MCV MCH MCHC RDW Std Deviation RDW Coeff of Slava Plt Count MPV Immature Gran % (Auto) Neut % (Auto) Lymph % (Auto) [place] % (Auto) Eos % (Auto) Baso % (Auto) Absolute Neuts (auto) Absolute Lymphs (auto) Nucleated RBC % PT INR APTT Sodium Potassium Chloride Carbon Dioxide Anion Gap BUN Creatinine Estim Creat Clear Calc Est GFR (MDRD) Af Amer Est GFR (MDRD) Non-Af BUN/Creatinine Ratio Glucose Lactic Acid 2.1 H* Calcium Total Bilirubin AST ALT Alkaline Phosphatase Troponin I Total Protein Albumin Globulin Albumin/Globulin Ratio Urine Color Yellow Urine Clarity Sl. Cloudy Urine pH 6.0 Ur Specific [place] 1.015 Urine Protein 15 H Urine Glucose (UA) Normal Urine Ketones Negative Urine Occult Blood 150 H Urine Nitrite Negative Urine Bilirubin Negative Urine Urobilinogen Normal Ur Leukocyte Esterase 100 H Urine RBC 10-25 SEEN Urine WBC 0-5 SEEN Ur Squamous Epith Cells 0 SEEN Urine Bacteria RARE Urine Mucus 0 SEEN - Rhythm Strip Rhythm Strip: Sinus Rhythm Rate: 93 Ectopy: None - EKG Initial EKG Interpretation: Sinus Rhythm - Sinus rhythm at 93 bpm. WI interval 158 ms. QTC of [address] changes. - Medical Decision Making Patient appears well and nontoxic. Initially hypotensive. Given 1 L of normal saline. Patient was also given 10 mg of midodrine given that she had this recently cut in half by her primary care provider for some hypertension. Patient found to have a leukocytosis without source of infection. Lactic acid of 2.1. Patient also has a hypercalcemia. These are likely secondary to volume depletion. CT brain was done given the patient's vomiting with movement. She also had a supratherapeutic INR at 8. CT brain negative. EKG showed no acute ischemia. Given the patient's hypotension which is now improved as well as the need for managing her medications and further treatment she will be admitted to the medical surgical floor. Stable at time of admission. Impression: 1. Hypotension - resolved 2. Supratheraputic INR 3. Lactic acidosis 4. Hypercalcemia 5. Vomiting ED Disposition - Plan for ED Patient: Disposition: Acute Care Hospital [facility]
[2020-04-02 14:45] LABS: Absolute Lymphocyte Count 1.65 X10^3/uL (0.83-4.51); Absolute Neutrophil Count 10.6 X10^3/uL (2.0-7.7); Basophil# 0.06 X10^3/uL; Basophil% 0.4 % (0-1); Eosinophils% 3.6 % (0-5); Hematocrit 47.2 % (37-47); Hemoglobin 15.2 g/dL (12.0-15.0); Lymphocyte # 1.65 X10^3/ul (4.0); Mean Corp Hgb Conc 32.2 g/dL (32-36); Mean Corpuscular Hgb 28.9 pg (27.0-32.0); Mean Corpuscular Volume 89.7 fL (81-99); Mean Platelet Vol. 10.4 fl (6.2-12.0); Monocyte# 0.72 X10^3/uL; Monocyte% 5.2 % (0-10); NRBC Flagged by Analyzer 0 % (0-5); Neutrophil # 10.64 X10^3/uL (2.7-7.7); Neutrophil % 77.3 % (47-70); Platelet Count 389 K/mm3 (150-450); RBC Distribution Width CV 15.7 % (11.6-14.6); RBC Distribution Width SD 51.4 fl (35.1-43.9); Red Blood Count 5.26 M/mm3 (4.2-5.4); White Blood Count 13.8 K/mm3 (4.4-11.0)
[2020-04-02] MEDS: Ondansetron 4 MG/2 ML Vial IV (14:52)
[2020-04-02] MEDS: 0.9% Normal Saline 1,000 ML 999 ML IV (14:52)
[2020-04-02 14:57] LABS: Mucous, Urine 0 SEEN /hpf (<or=2+); Squamous Epithelial Cells - UA 0 SEEN /hpf (5-10)
[2020-04-02 14:58] LABS: Prothrombin Time (Protime)PT. 68.7 SECONDS (11.7-14.9)
[2020-04-02 15:02] LABS: International Normalized Ratio 8.1; Partial Thromboplast Time 91.2 Seconds (24.1-36.2)
--- NOTE | 2020-04-02 15:05 | RAD_ITS ---
STUDY: X-RAY CHEST REASON FOR EXAM: Female, 74 years old. PT HERE FOR INCREASED WEAKNESS, LOW BP, AND FATIGUE STARTING 3 DAYS, HX OF ADDISONS DISEASE TECHNIQUE: Single AP portable view of the chest. COMPARISON: 03/20/2020 FINDINGS: The lungs are clear and expanded. There is no demonstrated pleural abnormality. Normal size heart. Normal mediastinum and timothy. Normal visualized pulmonary arteries. Normal visualized aortic arch and descending thoracic aorta. Normal visualized thoracic spine. Normal visualized ribs, clavicles, and shoulders. There is no demonstrated abnormality of the visualized soft tissue structures of the upper abdomen. RAD/Chest 1 View (Portable) IMPRESSION: Normal x-ray examination of the chest. Electronically Signed: William Long MD at 15:41 EST Tel , Service support ,
[2020-04-02 15:10] LABS: ALB/GLOB Ratio 0.9 RATIO (0.9-2.4); AST(SGOT) 32 U/L (15-37); Alanine Aminotransfer ALT/SGPT 47 U/L (13-56); Albumin, Serum 2.9 g/dL (3.2-5.0); Alkaline Phosphatase 104 U/L (45-117); Anion Gap 5 (5-15); BUN 54 mg/dL (7-18); BUN/Creat Ratio 28.9 RATIO (10-20); Calcium,Total 14.9 mg/dL (8.5-10.1); Chloride 99 mmol/L (98-107); Creatinine, Serum 1.87 mg/dL (0.55-1.02); EST Glomerular Filtration Rate 28 mL/min (>60); Est Glom Filt Rate - Afr Amer 34 mL/min (>60); Estimated Creatinine Clearance 20.24 ml/min; Globulin 3.4 g/dL (2.2-4.2); Glucose 123 mg/dL (74-106); Lactic Acid 2.1 mmol/L (0.4-1.9); Potassium 3.7 mmol/L (3.5-5.1); Protein, Total 6.3 g/dL (6.4-8.2); Sodium Level 139 mmol/L (136-145)
[2020-04-02 15:14] LABS: Color, Urine Yellow (Yellow); Glucose, Dipstick Normal (Normal); Ketone-Dipstick Negative (Negative); Leukocyte Esterase-Dipstick 100 /ul (Negative); Nitrite-Dipstick Negative (Negative); Occult Blood-Urine 150 /ul (Negative); Protein-Dipstick 15 mg/dl (Negative); Specific Gravity, Urine 1.015 (1.002-1.030); Urine Bilirubin Dipstick Negative (Negative); Urine Clarity Sl. Cloudy (Clear); Urine Urobilinogen Normal (Normal)
[2020-04-02 15:32] LABS: White Blood Cells 0-5 SEEN /hpf (0-5)
--- NOTE | 2020-04-02 15:32 | CT_ITS ---
STUDY: CT BRAIN WITHOUT CONTRAST REASON FOR EXAM: Female, 74 years old. VOMITING, INCREASED WEAKNESS, LOW BP, FATIGUE X 3 DAYS RADIATION DOSAGE (If Supplied By Facility): CTDIvol = ( 44.99 ) mGy, DLP = ( 745.49 ) mGycm TECHNIQUE: Transaxial CT imaging of the brain was performed without administration of intravenous contrast material. Individualized dose optimization techniques were used for this CT. COMPARISON: 03/20/2020 FINDINGS: Normal soft tissue structures. Normal calvarium. Normal size ventricles and extra-axial spaces for the patient''s age. Normal white matter tracts of the cerebral hemispheres. Normal basal ganglia and thalami. Normal brainstem. Normal cerebellum. There is no intracranial hemorrhage. There are no findings of an acute ischemic infarction. Normal visualized paranasal sinuses. CT/Brain/Head without Contrast IMPRESSION: Normal unenhanced CT scan of the brain. Electronically Signed: William Long MD at 16:45 EST Tel , Service support ,
[2020-04-02 15:33] LABS: Bacteria RARE /hpf (None Seen); Red Blood Cells-Urine 10-25 SEEN /hpf (0-5)
[2020-04-02] MEDS: Midodrine HCl 5 MG Tablet 10 MG PO (15:56)
--- NOTE | 2020-04-02 17:06 | HP.PCM_ITS ---
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 The patient is a 74 year old F who presents to the emergency room due to weakness, nausea. Patient was recently admitted following a syncopal event which was presumed secondary to orthostatic hypotension. Daughter at bedside states patient did fairly well for short time upon discharge however over the past several days has not been eating or drinking and has become increasingly weak and also reports nausea. Daughter also reports patient has been confused. Daughter states patient has had several falls recently and prior to last admission fell and hit her head. She denies fall prior to this admission. Patient denies vomiting. Denies diarrhea. Denies abdominal pain. Denies fever, chills. Denies urinary symptoms. Denies other associated symptoms or complaints. She has a past medical history of NSTEMI, history of recurrent DVT/PE, history of renal cancer status post right partial nephrectomy, hypertension, hyperlipidemia, Kyler's disease, chronic kidney disease stage III, chronic orthostatic hypotension. Past Medical History Past Medical History (Chronic Problems): Chronic Problems (Last Updated 03/23/20 @ 07:58 by Jacquie Johnston) Inyo disease (Chronic) Recurrent deep vein thrombosis (DVT) (Chronic) History of pulmonary embolism (Chronic) Hyperlipidemia (Chronic) Orthostatic hypotension (Chronic) [facility] (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 (Chronic) Medical History: Medical History (Last Updated 03/23/20 @ 07:58 by Jacquie Johnston) Syncope (Resolved) Onset Date: 03/20/20 R55 Inyo disease (Chronic) E27.1 History of non-ST elevation myocardial infarction (NSTEMI) (Resolved) Onset Date: 04/2009 I25.2 possible coronary embolism Recurrent deep vein thrombosis (DVT) (Chronic) I82.409 History of pulmonary embolism (Resolved) Z86.711 Hyperlipidemia (Chronic) E78.5 Orthostatic hypotension (Chronic) I95.1 Atopic dermatitis L20.9 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, stage 3 N18.3 Cystocele with rectocele N81.10, N81.6 size 4 ring with support History of DVT (deep vein thrombosis) Z86.718 Osteopenia determined by x-ray M85.80 Acute electrocardiogram changes R94.31 Closed head injury Onset Date: 03/20/20 S09.90XA Hypoglycemia Onset Date: 03/20/20 E16.2 Hypotension I95.9 Pyelonephritis N12 Essential (primary) hypertension (Ruled-out) I10 Allergies ciprofloxacin [From Cipro] Allergy (Verified 04/02/20 14:08) Rash Penicillins Allergy (Verified 04/02/20 14:08) Rash Home Medications: Ambulatory Orders Medication Instructions Recorded Calcium Carbonate/Vitamin D3 1 ea PO DAILY 03/24/16 [Calcium 500-Vit D3 200 Tablet] L.acidoph,Paracasei, B.lactis 1 ea PO DAILY 03/24/16 [Probiotic] nitroglycerin 0.4 mg sublingual 0.4 mg SUBLINGUAL Q5-15M PRN 05/21/18 tablet Simvastatin 20 mg PO QHS 11/11/19 Cholecalciferol (Vitamin D3) 1,000 unit PO DAILY 03/20/20 [Vitamin D3] Cyanocobalamin (Vitamin B-12) 1,000 mcg PO DAILY 03/20/20 [B-12] Gabapentin 300 mg PO DAILY 03/20/20 Gabapentin 600 mg PO QHS 03/20/20 Prednisone 2 mg PO QHS 03/20/20 Acetaminophen [Tylenol Extra 1,000 mg PO DAILY PRN PRN 04/02/20 Strength] Denosumab [Prolia] 60 mg [id number] 04/02/20 Dupilumab [Dupixent Pen] 300 mg [id number] 04/02/20 Midodrine HCl 5 mg PO TID 04/02/20 Warfarin Sodium 4 mg PO MOWEFR 04/02/20 Warfarin [Coumadin] 3 mg PO SUTUTHSA 04/02/20 Surgical History: Surgical History (Last Reviewed 09/24/19 @ 14:[address] 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 Psychiatric History: No pertinent psych hx INSPECTOR OPEN DIE History: No pertinent INSPECTOR OPEN DIE history Lives: Spouse/ Significant Other Smoking Status: Never smoker Alcohol: None Drugs: None - *Family History Maternal Family History: Family History (Last Reviewed 04/02/20 @ 17:11 by Jacinda Harrison NP, INSTRUMENT AND ELECTRICAL TECHNICIAN-C) Father CVA (cerebral vascular accident) Mother Myocardial infarction, Onset Age: 87 History Items: High Cholesterol, Heart Disease, Hypertension Paternal Family History: Family History (Last Reviewed 04/02/20 @ 17:11 by Jacinda Harrison NP, INSTRUMENT AND ELECTRICAL TECHNICIAN-C) Father CVA (cerebral vascular accident) Mother Myocardial infarction, Onset Age: 87 History Items: Stroke Sibling Family History: Family History (Last Reviewed 04/02/20 @ 17:11 by Jacinda Harrison NP, INSTRUMENT AND ELECTRICAL TECHNICIAN-C) Father CVA (cerebral vascular accident) Mother Myocardial infarction, Onset Age: 87 History Items: Renal Disease Review of Systems Constitutional: Reports: Malaise, Weakness, Fatigue. Denies: Chills, Fever, Weight Change HEENT: Denies: Head Aches, Sinus Congestion, Sinus Drainage Cardiovascular: Reports: Light Headedness. Denies: Chest Pain, Edema, Palpitations Respiratory: Denies: Cough, Shortness of breath at rest, Sputum production Gastrointestinal: Reports: Nausea. Denies: Abdominal Pain, Diarrhea, Vomiting Genitourinary: Denies: Dysuria Musculoskeletal: Denies: Joint Pain, Joint Tenderness Skin: Denies: Rash, Wounds Neurological: Denies: Numbness, Tingling, Focal weakness Psychiatric: Denies: Anxiety, Depression, Homicidal Ideations, Suicidal Ideations Hematologic/ Lymphatic: Denies: Easy Bruising, Easy Bleeding VTE Information - Inpt Only VTE Present on Admission: No VTE Mechan Device Prophylaxis: None VTE Pharm Prophylaxis ordered?: No Reason prophylaxis not ordered:: Medical Contraindication - Physical Exam Vitals/I&O's: Vital Signs Temp Pulse Resp BP Pulse Ox 97.6 F L 92 15 128/109 H 98 04/02/20 16:00 04/02/20 16:00 04/02/20 16:00 04/02/20 16:00 04/02/20 16:00 Oxygen Delivery Method Room Air Weight: 139 lb Body Mass Index (BMI) 25.4 General: Cooperative, No apparent distress, - - Drowsy HEENT: Atraumatic, PERRLA, EOMI, Normocephalic Oral: Dry Mucosa Neck: Supple, No JVD, Negative Carotid Bruits Lungs: Clear to auscultation, Diminished Cardiovascular: Regular rate, No murmurs Abdomen: Bowel Sounds Present, Soft, Non Tender, Non-Distended Extremities: No clubbing, No cyanosis, No edema, Capillary Refill Less than 3 Seconds Skin: No rashes, No breakdown Musculoskeletal: No Tenderness to Palpation of Joints or Extremities Neurological: Cranial nerves II-XII grossly intact, Neuro grossly intact Psych/Mental Status: Normal Affect, Appropriate Laboratory Results 04/02/20 14:30: WBC 13.8 H, RBC 5.26, Hgb 15.2 H, Hct 47.2 H, MCV 89.7, MCH 28.9, MCHC 32.2, RDW Std Deviation 51.4 H, RDW Coeff of Slava 15.7 H, Plt Count 389, MPV 10.4, Immature Gran % (Auto) 1.500 H, Neut % (Auto) 77.3 H, Lymph % (Auto) 12.0 L, [place] % (Auto) 5.2, Eos % (Auto) 3.6, Baso % (Auto) 0.4, Absolute Neuts (auto) 10.6 H, Absolute Lymphs (auto) 1.65, Nucleated RBC % 0 04/02/20 14:30: PT 68.7 H, INR 8.1 H*, APTT 91.2 H* 04/02/20 14:30: Sodium 139, Potassium 3.7, Chloride 99, Carbon Dioxide 35.0 H, Anion Gap 5, BUN 54 H, Creatinine 1.87 H, Estim Creat Clear Calc 20.24, Est GFR (MDRD) Af Amer 34 L, Est GFR (MDRD) Non-Af 28 L, BUN/Creatinine Ratio 28.9 H, Glucose 123 H, Calcium 14.9 H*, Total Bilirubin 0.80, AST 32, ALT 47, Alkaline Phosphatase 104, Troponin I < 0.015, Total Protein 6.3 L, Albumin 2.9 L, Globulin 3.4, Albumin/Globulin Ratio 0.9 04/02/20 14:30: Lactic Acid 2.1 H* 04/02/20 14:35: Urine Color Yellow, Urine Clarity Sl. Cloudy, Urine pH 6.0, Ur Specific [place] 1.015, Urine Protein 15 H, Urine Glucose (UA) Normal, Urine Ketones Negative, Urine Occult Blood 150 H, Urine Nitrite Negative, Urine Bilirubin Negative, Urine Urobilinogen Normal, Ur Leukocyte Esterase 100 H, Urine RBC 10-25 SEEN, Urine WBC 0-5 SEEN, Ur Squamous Epith Cells 0 SEEN, Urine Bacteria RARE, Urine Mucus 0 SEEN Assessment/Plan All Active Problems (Last Updated 03/23/20 @ 07:58 by Jacquie Johnston) History of non-ST elevation myocardial infarction (NSTEMI) (Resolved 04/2009) Pyelonephritis, acute (Resolved) Sepsis (Resolved) Essential (primary) hypertension (Ruled-out) 1. Acute kidney injury on chronic kidney disease stage III-IV fluids, trend BMP. Patient with history of left nephrectomy for donation and partial right nephrectomy related to renal carcinoma. 2. Hypotension-recently placed on midodrine. Midodrine 10 mg p.o. x1 in ER. Blood pressure improved. Continue IV fluids and scheduled midodrine. 3. Hypercalcemia-daughter reports patient had extensive work-up for this in the past at [facility], no etiology was found. Aggressive hydration as noted above. Serial BMP. 4. Lactic acidosis-suspect secondary to #1. No evidence of infectious etiology. 5. Recent syncope with fall secondary to orthostatic hypotension-repeat orthostatic vitals. IV fluids and midodrine as noted above. Recent echocardiogram 03/21/2020 demonstrated an EF of 55%, mild mitral valve insufficiency, moderate tricuspid valve insufficiency. 6. Supratherapeutic INR-hold Coumadin, trend INR. 7. 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 Previously on Florinef. Patient has followed with Dr. Vann in the past, will need further follow-up with endocrinology at discharge. 8. History of recurrent DVTs/PE-Coumadin on hold due to supratherapeutic INR. Trend INR. 9. History of renal cancer-status post right partial nephrectomy. 10. Hypertension-no longer on regimen due to hypotension. 11. Hyperlipidemia-continue statin. 12. History of NSTEMI-on statin. DVT prophylaxis- Coumadin on hold CODE STATUS: Discussed with patient, requests DNR CCA no intubation. This patient was seen by PEDRO Butt under the supervision of Dr. Banuelos. <Lc Banuelos - Last Filed: 04/03/20 19:34> History of Present Illness The patient is a 74 year old F with multiple comorbidities including renal cancer with partial right nephrectomy and left kidney donation, recent discharge after she had syncopal fall mostly due to orthostatic hypotension came to ED with generalized weakness and nausea. Patient had fall at home, dizziness and lightheadedness. Recently patient's midodrine was decreased to 5 mg 3 times daily by PCP as blood pressure was high. Patient also has Inyo's disease and is on prednisone but not Florinef. Patient also has poor appetite and not been drinking or eating for few days. She denies major head injury. In ED her blood pressure was low 86/44 and was 1 L IV fluid bolus given along with 100 mg IV hydrocortisone. [] Past Medical History Medical History: Medical History (Last Updated 03/23/20 @ 07:58 by Jacquie Johnston) Syncope (Resolved) Onset Date: 03/20/20 R55 Kyler disease (Chronic) E27.1 History of non-ST elevation myocardial infarction (NSTEMI) (Resolved) Onset Date: 04/2009 I25.2 possible coronary embolism Recurrent deep vein thrombosis (DVT) (Chronic) I82.409 History of pulmonary embolism (Resolved) Z86.711 Hyperlipidemia (Chronic) E78.5 Orthostatic hypotension (Chronic) I95.1 Atopic dermatitis L20.9 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, stage 3 N18.3 Cystocele with rectocele N81.10, N81.6 size 4 ring with support History of DVT (deep vein thrombosis) Z86.718 Osteopenia determined by x-ray M85.80 Acute electrocardiogram changes R94.31 Closed head injury Onset Date: 03/20/20 S09.90XA Hypoglycemia Onset Date: 03/20/20 E16.2 Hypotension I95.9 Pyelonephritis N12 Essential (primary) hypertension (Ruled-out) I10 Allergies ciprofloxacin [From Cipro] Allergy (Verified 04/02/20 14:08) Rash Penicillins Allergy (Verified 04/02/20 14:08) Rash Surgical History: Surgical History (Last Reviewed 09/24/19 @ 14:[address] 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 History of total abdominal hysterectomy Z90.710 - *Family History Maternal Family History: Family History (Last Reviewed 04/02/20 @ 17:11 by Jacinda Harrison NP, INSTRUMENT AND ELECTRICAL TECHNICIAN-C) Father CVA (cerebral vascular accident) Mother Myocardial infarction, Onset Age: 87 Paternal Family History: Family History (Last Reviewed 04/02/20 @ 17:11 by Jacinda Harrison NP, INSTRUMENT AND ELECTRICAL TECHNICIAN-C) Father CVA (cerebral vascular accident) Mother Myocardial infarction, Onset Age: 87 Sibling Family History: Family History (Last Reviewed 04/02/20 @ 17:11 by Jacinda Harrison NP, INSTRUMENT AND ELECTRICAL TECHNICIAN-C) Father CVA (cerebral vascular accident) Mother Myocardial infarction, Onset Age: 87 Objective: Physical exam General: Alert, Oriented x3, Cooperative, looks weak and pale HEENT: Atraumatic, PERRLA, EOMI, Normocephalic Oral: Oral mucosa dry. No Gingival or Mucosal Lesions/ Ulcerations Neck: Supple, No JVD, Negative Carotid Bruits Lungs: Air entry diminished in bilateral lung bases. No crepitation/rhonchi Cardiovascular: Regular rate, Regular Rhythm, Normal S1, Normal S2, No murmurs Abdomen: Bowel Sounds Present, Soft, Non Tender, Non-Distended : No renal angle tenderness. No suprapubic tenderness. Extremities: No edema, Capillary Refill Less than 3 Seconds Skin: No rashes, No breakdown Musculoskeletal: No Tenderness to Palpation of Joints or Extremities. Mild weakness of lower extremity muscles. Neurological: Cranial nerves II-XII grossly intact, Deep Tendon Reflexes 2+/4 and Symmetrical, Neuro grossly intact Psych/Mental Status: Normal Affect, Appropriate. - Physical Exam Vitals/I&O's: Vital Signs Temp Pulse Resp BP Pulse Ox 98.1 F 70 16 163/96 H 95 04/03/20 17:00 04/03/20 17:00 04/03/20 17:00 04/03/20 17:00 04/03/20 17:00 Oxygen Delivery Method Room Air Weight: 134 lb 3.196 oz Body Mass Index (BMI) 24.5 Intake and Output for Last 24 Hours 04/01/20 04/02/20 04/03/20 23:59 23:59 23:59 Intake Total 2742.5 / 2742.5 Balance 274.5 / 2742.5 Microbiology Past 72 Hours 04/02/20 14:35 Urine Catheter - Catheter Urine Culture - Preliminary Alpha Hemolytic Streptococcus 04/03/20 11:25 Mucosa - Nose SARS-CoV-2 Antigen (Rapid) - Final Laboratory Results 04/02/20 19:40: Lactic Acid 2.3 H* 04/02/20 23:13: Sodium 141, Potassium 4.2, Chloride 107, Carbon Dioxide 32.0, Anion Gap 2 L, BUN 49 H, Creatinine 1.71 H, Estim Creat Clear Calc 22.14, Est GFR (MDRD) Af Amer 37 L, Est GFR (MDRD) Non-Af 31 L, BUN/Creatinine Ratio 28.7 H , Glucose 97, Calcium 12.1 H 04/02/20 23:13: Lactic Acid 1.4 04/03/20 05:20: WBC 11.5 H, RBC 4.34, Hgb 12.6, Hct 40.0, MCV 92.2, MCH 29.0, MCHC 31.5 L, RDW Std Deviation 53.1 H, RDW Coeff of Slava 15.7 H, Plt Count 310, MPV 10.3, Immature Gran % (Auto) 1.100 H, Neut % (Auto) 88.0 H, Lymph % (Auto) 6.3 L, [place] % (Auto) 4.0, Eos % (Auto) 0.3, Baso % (Auto) 0.3, Absolute Neuts (auto) 10.1 H, Absolute Lymphs (auto) 0.72 L, Nucleated RBC % 0 04/03/20 05:20: PT 73.4 H, INR 8.8 H* 04/03/20 13:47: Vitamin D 25-Hydroxy 30.8 04/03/20 13:47: PTH Intact 13.1 L 04/03/20 13:47: Miscellaneous Test Pending Current Medications Acetaminophen (Acetaminophen 325 Mg Tablet) 650 mg PO Q6H PRN PRN PRN Reason: Pain Score 1-10/Temp > 100.7 F Last Admin: 04/03/20 09:04 Dose: 650 mg Documented by: Atorvastatin Calcium (Atorvastatin Calcium 10 Mg Tablet) 10 mg PO QHS [facility] Last Admin: 04/02/20 21:46 Dose: 10 mg Documented by: Fludrocortisone Acetate (Fludrocortisone Acetate 0.1 Mg Tablet) 0.1 mg PO DAILY@0800 [facility] Gabapentin (Gabapentin 300 Mg Capsule) [facility] Last Admin: 04/03/20 09:03 Dose: 300 mg Documented by: Gabapentin (Gabapentin 300 Mg Capsule) 600 mg PO QHS [facility] Last Admin: 04/02/20 21:46 Dose: 600 mg Documented by: Hydrocortisone (Hydrocortisone 10 Mg Tablet) 20 mg PO TIDCM [facility] Last Admin: 04/03/20 17:02 Dose: 20 mg Documented by: Sodium Chloride () 1,000 mls @ 150 mls/hr IV .Q6H40M [facility] Last Admin: 04/03/20 13:32 Dose: 150 mls/hr Documented by: Sodium Chloride () 250 mls @ 15 mls/hr IV .[id number] PRN PRN Reason: Saline Flush Sodium Chloride () 250 mls @ 15 mls/hr IV .[id number] PRN PRN Reason: Additional IVPB Infusion Midodrine (Midodrine Hcl 5 Mg Tablet) 10 mg PO TIDCM [facility] Last Admin: 04/03/20 17:02 Dose: 10 mg Documented by: Nutritional Formula (Lactose Free) (Ensure Enlive 120 Ml Liquid) 120 ml PO 4X/DAY [facility] Last Admin: 04/03/20 17:02 Dose: 120 ml Documented by: Ondansetron HCl (Ondansetron 4 Mg/2 Ml Vial) 4 mg IV Q8H PRN PRN PRN Reason: NAUSEA/VOMITING Sodium Chloride (0.9% Saline Lock 10 Ml Syringe) 10 - 40 ml IV UD PRN PRN Reason: SALINE FLUSH Assessment/Plan This patient was seen in conjunction with INSTRUMENT AND ELECTRICAL TECHNICIANJacinda. I have independently interviewed and examined the patient and reviewed pertinent history, examination findings, laboratory and plan of management. I have reviewed the note and agree with the documented findings with the few additional points. In brief, patient is admitted for generalized weakness, hypotension mainly due to decreased dose of midodrine and probably not taking Florinef. Patient was started on IV hydrocortisone 50 mg every 8 hourly and midodrine increased to 10 mg 3 times daily along with IV fluid rehydration. Patient needs to follow Dr. Vann whom she has seen 1 or 2 years ago to test for further adequacy of hypothalamic pituitary adrenal axis on baseline. Currently no indication for cosyntropin test. Patient also has lactic acidosis mainly secondary to hypovolemia/dehydration. Patient also has hypercalcemia mainly due to volume contraction. Calcium was 14.9. Patient also has acute kidney injury, BUN/creatinine 54/1.87. His creatinine has been elevated in the past and is about 1.0-1.4 probably secondary to have kidney. She had partial right nephrectomy for renal carcinoma and had left nephrectomy for donation. Patient other comorbidities as mentioned above including history of recurrent DVT/PE, dyslipidemia, non-STEMI: INR is supratherapeutic and Coumadin on hold. Monitor CBC, BMP and INR daily. I have discussed my assessment with INSTRUMENT AND ELECTRICAL TECHNICIANJacinda and orders have been reviewed. Inpatient E&M: 60669 Init Hosp L3
--- NOTE | 2020-04-02 17:39 | PCS.PANDOC ---
PANDEMIC DOCUMENTATION INITIATED: Date: 04/02/20 Time: 8053
[2020-04-02] MEDS: 0.9% Normal Saline 1,000 ML 150 ML IV (17:50)
[2020-04-02 18:41] LABS: Reflex Lactate? Y
[2020-04-02 19:06] LABS: Anion Gap 1 (5-15); BUN 51 mg/dL (7-18); BUN/Creat Ratio 29.3 RATIO (10-20); Calcium,Total 13.1 mg/dL (8.5-10.1); Chloride 104 mmol/L (98-107); Creatinine, Serum 1.74 mg/dL (0.55-1.02); EST Glomerular Filtration Rate 30 mL/min (>60); Est Glom Filt Rate - Afr Amer 37 mL/min (>60); Estimated Creatinine Clearance 21.75 ml/min; Glucose 102 mg/dL (74-106); Potassium 4.2 mmol/L (3.5-5.1); Sodium Level 140 mmol/L (136-145)
[2020-04-02 20:50] LABS: Lactic Acid 2.3 mmol/L (0.4-1.9)
[2020-04-02] MEDS: Atorvastatin Calcium 10 MG Tablet PO (21:46)
[2020-04-02] MEDS: Gabapentin 300 MG Capsule 600 MG PO (21:46)
[2020-04-02] MEDS: Hydrocortisone Sod Succinate 100 MG/2 ML Vial 50 MG IV (21:59)
[2020-04-02 23:40] LABS: Anion Gap 2 (5-15); BUN 49 mg/dL (7-18); BUN/Creat Ratio 28.7 RATIO (10-20); Calcium,Total 12.1 mg/dL (8.5-10.1); Chloride 107 mmol/L (98-107); Creatinine, Serum 1.71 mg/dL (0.55-1.02); EST Glomerular Filtration Rate 31 mL/min (>60); Est Glom Filt Rate - Afr Amer 37 mL/min (>60); Estimated Creatinine Clearance 22.14 ml/min; Glucose 97 mg/dL (74-106); Potassium 4.2 mmol/L (3.5-5.1); Sodium Level 141 mmol/L (136-145)
[2020-04-02 23:53] LABS: Lactic Acid 1.4 mmol/L (0.4-1.9)
[2020-04-03] VITALS (11 sets, daily range): BP systolic 104–163; BP diastolic 65–96; PULSE 68–84; RESP 14–18; TEMP 36.4–36.8; O2SAT 93–97
[2020-04-03] MEDS: 0.9% Normal Saline 1,000 ML 150 ML IV ×4 (00:15→20:26)
[2020-04-03 05:25] LABS: Absolute Lymphocyte Count 0.72 X10^3/uL (0.83-4.51); Absolute Neutrophil Count 10.1 X10^3/uL (2.0-7.7); Basophil# 0.03 X10^3/uL; Basophil% 0.3 % (0-1); Eosinophil# 0.03 X10^3/uL; Eosinophils% 0.3 % (0-5); Hemoglobin 12.6 g/dL (12.0-15.0); Lymphocyte # 0.72 X10^3/ul (4.0); Lymphocyte % 6.3 % (19-41); Mean Corp Hgb Conc 31.5 g/dL (32-36); Mean Corpuscular Volume 92.2 fL (81-99); Mean Platelet Vol. 10.3 fl (6.2-12.0); Monocyte# 0.46 X10^3/uL; NRBC Flagged by Analyzer 0 % (0-5); Neutrophil # 10.08 X10^3/uL (2.7-7.7); Platelet Count 310 K/mm3 (150-450); RBC Distribution Width CV 15.7 % (11.6-14.6); RBC Distribution Width SD 53.1 fl (35.1-43.9); Red Blood Count 4.34 M/mm3 (4.2-5.4); White Blood Count 11.5 K/mm3 (4.4-11.0)
[2020-04-03] MEDS: Hydrocortisone Sod Succinate 100 MG/2 ML Vial 50 MG IV (05:26)
[2020-04-03 05:38] LABS: Prothrombin Time (Protime)PT. 73.4 SECONDS (11.7-14.9)
[2020-04-03 05:44] LABS: International Normalized Ratio 8.8
--- NOTE | 2020-04-03 08:22 | PN_ITS ---
Subjective: Patient seen and examined. Reports nausea is improved. Reports ongoing weakness. Denies other symptoms or complaints. Discussed discharge planning with patient as she has had recurrent falls at home with recent scalp laceration. She is amendable to rehab at discharge prior to returning home if this is recommended. - Physical Exam Vitals/I&O's: Vital Signs Temp Pulse Resp BP Pulse Ox 98.3 F 75 16 104/65 93 04/03/20 03:39 04/03/20 07:00 04/03/20 03:39 04/03/20 03:39 04/03/20 03:39 Oxygen Delivery Method Room Air Weight: 134 lb 3.2 oz Body Mass Index (BMI) 24.5 Intake and Output for Last 24 Hours 04/01/20 04/02/20 04/03/20 23:59 23:59 23:59 Intake Total 1032.5 / 1032.5 Balance 1032.5 / 1032.5 General: Alert, Oriented x3, Cooperative HEENT: Atraumatic, PERRLA, EOMI, Normocephalic Neck: Supple, No JVD, Negative Carotid Bruits Lungs: Clear to auscultation, Normal air movement Cardiovascular: Regular rate, No murmurs Abdomen: Bowel Sounds Present, Soft, Non Tender, Non-Distended Extremities: No clubbing, No cyanosis, No edema, Capillary Refill Less than 3 Seconds Skin: No rashes, No breakdown Musculoskeletal: No Tenderness to Palpation of Joints or Extremities Neurological: Cranial nerves II-XII grossly intact, Neuro grossly intact Psych/Mental Status: Normal Affect, Appropriate Laboratory Results 04/02/20 14:30: WBC 13.8 H, RBC 5.26, Hgb 15.2 H, Hct 47.2 H, MCV 89.7, MCH 28.9, MCHC 32.2, RDW Std Deviation 51.4 H, RDW Coeff of Slava 15.7 H, Plt Count 389, MPV 10.4, Immature Gran % (Auto) 1.500 H, Neut % (Auto) 77.3 H, Lymph % (Auto) 12.0 L, [place] % (Auto) 5.2, Eos % (Auto) 3.6, Baso % (Auto) 0.4, Absolute Neuts (auto) 10.6 H, Absolute Lymphs (auto) 1.65, Nucleated RBC % 0 04/02/20 14:30: PT 68.7 H, INR 8.1 H*, APTT 91.2 H* 04/02/20 14:30: Sodium 139, Potassium 3.7, Chloride 99, Carbon Dioxide 35.0 H, Anion Gap 5, BUN 54 H, Creatinine 1.87 H, Estim Creat Clear Calc 20.24, Est GFR (MDRD) Af Amer 34 L, Est GFR (MDRD) Non-Af 28 L, BUN/Creatinine Ratio 28.9 H, Glucose 123 H, Calcium 14.9 H*, Total Bilirubin 0.80, AST 32, ALT 47, Alkaline Phosphatase 104, Troponin I < 0.015, Total Protein 6.3 L, Albumin 2.9 L, Globulin 3.4, Albumin/Globulin Ratio 0.9 04/02/20 14:30: Lactic Acid 2.1 H* 04/02/20 14:35: Urine Color Yellow, Urine Clarity Sl. Cloudy, Urine pH 6.0, Ur Specific Crow[place] 1.015, Urine Protein 15 H, Urine Glucose (UA) Normal, Urine Ketones Negative, Urine Occult Blood 150 H, Urine Nitrite Negative, Urine Bilirubin Negative, Urine Urobilinogen Normal, Ur Leukocyte Esterase 100 H, Urine RBC 10-25 SEEN, Urine WBC 0-5 SEEN, Ur Squamous Epith Cells 0 SEEN, Urine Bacteria RARE, Urine Mucus 0 SEEN 04/02/20 18:25: Sodium 140, Potassium 4.2, Chloride 104, Carbon Dioxide 35.0 H, Anion Gap 1 L, BUN 51 H, Creatinine 1.74 H, Estim Creat Clear Calc 21.75, Est GFR (MDRD) Af Amer 37 L, Est GFR (MDRD) Non-Af 30 L, BUN/Creatinine Ratio 29.3 H , Glucose 102, Calcium 13.1 H* 04/02/20 19:40: Lactic Acid 2.3 H* 04/02/20 23:13: Sodium 141, Potassium 4.2, Chloride 107, Carbon Dioxide 32.0, Anion Gap 2 L, BUN 49 H, Creatinine 1.71 H, Estim Creat Clear Calc 22.14, Est GFR (MDRD) Af Amer 37 L, Est GFR (MDRD) Non-Af 31 L, BUN/Creatinine Ratio 28.7 H , Glucose 97, Calcium 12.1 H 04/02/20 23:13: Lactic Acid 1.4 04/03/20 05:20: WBC 11.5 H, RBC 4.34, Hgb 12.6, Hct 40.0, MCV 92.2, MCH 29.0, MCHC 31.5 L, RDW Std Deviation 53.1 H, RDW Coeff of Slava 15.7 H, Plt Count 310, MPV 10.3, Immature Gran % (Auto) 1.100 H, Neut % (Auto) 88.0 H, Lymph % (Auto) 6.3 L, [place] % (Auto) 4.0, Eos % (Auto) 0.3, Baso % (Auto) 0.3, Absolute Neuts (auto) 10.1 H, Absolute Lymphs (auto) 0.72 L, Nucleated RBC % 0 04/03/20 05:20: PT 73.4 H, INR 8.8 H* Current Medications Acetaminophen (Acetaminophen 325 Mg Tablet) 650 mg PO Q6H PRN PRN PRN Reason: Pain Score 1-10/Temp > 100.7 F Atorvastatin Calcium (Atorvastatin Calcium 10 Mg Tablet) 10 mg PO QHS [facility] Last Admin: 04/02/20 21:46 Dose: 10 mg Documented by: Gabapentin (Gabapentin 300 Mg Capsule) [facility] Gab[facility]entin (Gabapentin 300 Mg Capsule) 600 mg PO QHS [facility] Last Admin: 04/02/20 21:46 Dose: 600 mg Documented by: Hydrocortisone Sodium Succinate (Hydrocortisone Sod Succinate 100 Mg/2 Ml Vial) 50 mg IV Q8 [facility] Last Admin: 04/03/20 05:26 Dose: 50 mg Documented by: Sodium Chloride () 1,000 mls @ 150 mls/hr IV .[id number] [facility] Last Admin: 04/03/20 06:50 Dose: 150 mls/hr Documented by: Sodium Chloride () 250 mls @ 15 mls/hr IV .[id number] PRN PRN Reason: Saline Flush Sodium Chloride () 250 mls @ 15 mls/hr IV .[id number] PRN PRN Reason: Additional IVPB Infusion Midodrine (Midodrine Hcl 5 Mg Tablet) 10 mg PO TIDCM [facility] Ondansetron HCl (Ondansetron 4 Mg/2 Ml Vial) 4 mg IV Q8H PRN PRN PRN Reason: NAUSEA/VOMITING Sodium Chloride (0.9% Saline Lock 10 Ml Syringe) 10 - 40 ml IV UD PRN PRN Reason: SALINE FLUSH Medical Necessity - Tobacco Use Smoking Status: Never smoker Tobacco Use: Non-smoker Assessment/Plan All Active Problems (Last Updated 03/23/20 @ 07:58 by Jacquie Johnston) History of non-ST elevation myocardial infarction (NSTEMI) (Resolved 04/2009) Pyelonephritis, acute (Resolved) Sepsis (Resolved) Essential (primary) hypertension (Ruled-out) 1. Acute kidney injury on chronic kidney disease stage III-IV fluids, trend BMP. Patient with history of left nephrectomy for donation and partial right nephrectomy related to renal carcinoma. Kidney function slightly improved. Patient reports poor appetite, oral intake. Dietitian consult. PT/OT. 2. Hypotension-recently placed on midodrine. Blood pressure improved. Continue IV fluids and scheduled midodrine. 3. Hypercalcemia-daughter reports patient had extensive work-up for this in the past at [facility], no etiology was found. Aggressive hydration as noted above. Trending down. 4. Lactic acidosis-suspect secondary to #1. No evidence of infectious etiology. Resolved. 5. Recent syncope with fall secondary to orthostatic hypotension-repeat orthostatic vitals. IV fluids and midodrine as noted above. Recent echocardiogram 03/21/2020 demonstrated an EF of 55%, mild mitral valve insufficiency, moderate tricuspid valve insufficiency. 6. Supratherapeutic INR-hold Coumadin, trend INR. 7. 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 Previously on Florinef. Patient has followed with Dr. Vann in the past, will need further follow-up with endocrinology at discharge. Continue IV hydrocortisone. We will attempt to discuss with endocrinology by phone any additional recommendations. 8. History of recurrent DVTs/PE-Coumadin on hold due to supratherapeutic INR. Trend INR. Patient states it has been several years since her last DVT/PE. She states transitioning to novel anticoagulant has never been discussed with her. Recommend transition to novel anticoagulant at discharge given significant fluctuation in INR. 9. History of renal cancer-status post right partial nephrectomy. 10. Hypertension-no longer on regimen due to hypotension. 11. Hyperlipidemia-continue statin. 12. History of NSTEMI-on statin. DVT prophylaxis- Coumadin on hold CODE STATUS: Discussed with patient, requests DNR CCA no intubation. This patient was seen by PEDRO Butt under the supervision of Dr. Potts.
[2020-04-03] MEDS: Gabapentin 300 MG Capsule PO (09:03)
[2020-04-03] MEDS: Midodrine HCl 5 MG Tablet 10 MG PO ×3 (09:03→17:02)
[2020-04-03] MEDS: Acetaminophen 325 MG Tablet 650 MG PO ×2 (09:04→23:35)
--- NOTE | 2020-04-03 09:22 | CASEMGMT ---
Assessment- SW completed assessment with patient at bedside. SW also confirmed addresses and phone numbers. Living situation- Patient lives with her in a 1 story home with no steps to enter. PCP: Dr Fulton Specialists: Dr Tarango-Nephrology and Dr Marte-Cardiology [facility]: [facility]: walker, bedside commode, raised toilet seat, and grab bars. Patient does not use the bsc or rts ADL's/IADL's: Up until the last few weeks patient was independent. However, she has recently been using her walker to get around. Her or grandson have been following behind her with a chair when she walks since she is so shaky. She showered herself Monday and felt great. Then later that day or next day she felt terrible, weak, and shaky. She was managing bills, but since her concussion she has not been doing well with writing checks. She has to think really hard. She was managing her own medications, not sure if this will continue. 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 However, since she fell her daughter and grandson have been driving them. Past SNF/rehab: None Past HH: Yes. Current with [facility] HH PT and SN LW: No. POA: No. However, patient said she and her were taking about doing the documents and they would name their oldest daughter. TYREE told her SW can help with this while she is here if she is interested. SW told her to ask for SW if she would like to complete documents. Plan: Patient is not sure about her discharge plan. She did say that if she is no better than when she came in she will have to go somewhere for rehab. She said she was interested in [facility] TCU. SW did provided a list of SNF providers including quality and resource use data and consistent with the patient?s preferred geographic region, medical needs, and insurance network. TYREE told her SW did check and TCU would have a bed for her if that is where she chooses to go. She said she has never been to a fdc so she did not know what to expect. TYREE told her that right now there are no visitors at the nursing homes. SW told her she would wear regular clothes and many of the facilities have private rooms. TYREE told her TYREE and ROSS GILLILAND will continue to follow and assist with d/c planning. Chel CORBETT MSW
--- NOTE | 2020-04-03 11:12 | CASEMGMT ---
TYREE spoke with patient and her daughter. TYREE told patient's daughter that SW provided her with a list of local SNF's that are in network with her insurance. They both agreed patient needs to go somewhere. They both agreed they want TCU. TYREE let them know TCU would have a bed for her. TYREE also let patient's daughter know there are no visitors and that she will be able to wear regular clothes. The plan will then be for [facility] TCU pending insurance approval which TYREE anticipates will be today. Therefore if patient is ready over the weekend she should be able to go. Chel CORBETT MSW
[2020-04-03 14:30] LABS: PTHIN 13.1 pg/mL (18.4-80.1)
[2020-04-03 14:34] LABS: Vitamin D,25 Hydroxy 30.8 ng/mL
--- NOTE | 2020-04-03 16:46 | NURSING ---
Received call from Hilda who advised that pt has been accepted to TCU.
[2020-04-03] MEDS: Hydrocortisone 10 MG Tablet 20 MG PO (17:02)
[2020-04-03] MEDS: Atorvastatin Calcium 10 MG Tablet PO (21:09)
[2020-04-03] MEDS: Gabapentin 300 MG Capsule 600 MG PO (21:10)
[2020-04-04 03:00] VITALS: PULSE 66
[2020-04-04] MEDS: 0.9% Normal Saline 1,000 ML 150 ML IV (03:21)
[2020-04-04 05:00] VITALS: BP 148/92; PULSE 64; RESP 16; TEMP 36.5; O2SAT 95
[2020-04-04 06:56] VITALS: PULSE 61
[2020-04-04 07:28] LABS: Hematocrit 36.1 % (37-47); Hemoglobin 11.2 g/dL (12.0-15.0); Mean Corpuscular Hgb 28.6 pg (27.0-32.0); Mean Corpuscular Volume 92.3 fL (81-99); Mean Platelet Vol. 10.7 fl (6.2-12.0); Platelet Count 306 K/mm3 (150-450); RBC Distribution Width CV 15.7 % (11.6-14.6); Red Blood Count 3.91 M/mm3 (4.2-5.4); White Blood Count 11.9 K/mm3 (4.4-11.0)
[2020-04-04 07:40] LABS: Anion Gap 3 (5-15); BUN 46 mg/dL (7-18); BUN/Creat Ratio 33.8 RATIO (10-20); Calcium,Total 11.1 mg/dL (8.5-10.1); Chloride 109 mmol/L (98-107); Creatinine, Serum 1.36 mg/dL (0.55-1.02); EST Glomerular Filtration Rate 40 mL/min (>60); Est Glom Filt Rate - Afr Amer 49 mL/min (>60); Estimated Creatinine Clearance 27.83 ml/min; Glucose 121 mg/dL (74-106); Potassium 3.6 mmol/L (3.5-5.1); Sodium Level 141 mmol/L (136-145)
[2020-04-04 07:42] LABS: Prothrombin Time (Protime)PT. 71.9 SECONDS (11.7-14.9)
[2020-04-04 07:45] LABS: International Normalized Ratio 8.6
[2020-04-04] MEDS: Hydrocortisone 10 MG Tablet 20 MG PO ×2 (08:45→11:22)
[2020-04-04] MEDS: Gabapentin 300 MG Capsule PO (08:46)
[2020-04-04] MEDS: Fludrocortisone Acetate 0.1 MG Tablet PO (08:46)
[2020-04-04] MEDS: Midodrine HCl 5 MG Tablet 10 MG PO (08:46)
--- NOTE | 2020-04-04 09:51 | TREXTCA.CO_ITS ---
- Diet 04/02/20 17:29 Diet: Regular - General Food consistency:: Regular Liquid Consistency:: Regular/Thin - Routine Orders/Code Status Enema Type: Fleetz Enema Frequency: Daily PRN Suppository Type: Dulcolax 10mg Suppository Frequency: Daily PRN Routine Lab Work: - - Daily BMP, INR until INR <3 and calcium returns to normal. 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 and 10 mg in p.m., ideally p.m. dose between 3 and [address] Vann, endocrinology on Monday for update on patient. When INR is less than 3, resume Coumadin at 2.5 mg daily and continue following INR. H&P will serve as current which was dated: 04/02/20 Day of Discharge: 04/04/20 - Dietary and Speech Recommendations Dietitian Recommendations/Changes: continue regular diet as tolerated. Will add ensure w/ medpass. - Follow Up Care Primary Care Physician: Amos Fulton MD [Primary Care Provider] - Please follow up with your Primary Care Physician in: 1 Week Please Follow Up With: Torsten Vann MD When: Call on monday to update on patient status. F/U within 1 week of DC.
--- NOTE | 2020-04-04 10:06 | DS.PCM_ITS ---
Discharge Date and Diagnosis Date of Admission: 04/02/20 Date of Discharge: 04/04/20 - Primary Discharge Diagnosis Acute Problems: 1. Acute kidney injury on chronic kidney disease stage III 2. Hypotension 3. Hypercalcemia 4. Lactic acidosis-secondary to #1. No evidence of infectious etiology. 5. Recent syncope with fall secondary to orthostatic hypotension 6. Supratherapeutic INR 7. [place]'s disease, with suspected acute adrenal crisis 8. History of recurrent DVTs/PE 9. History of renal cancer-status post right partial nephrectomy. 10. Hypertension 11. Hyperlipidemia 12. 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 Electronically Signed: William Long MD at 15:41 EST Tel , Service support , Brain CT 04/02/20 15:32 IMPRESSION: Normal unenhanced CT scan of the brain. Electronically Signed: William Long MD at 16:45 EST Tel , Service support , Operations: None Procedures: None Summary of Care Provided: The patient is a 74 year old F admitted 04/02/20 due to weakness and nausea. 1. Acute kidney injury on chronic kidney disease stage III- improved IV fluids. Patient with history of left nephrectomy for donation and partial right nephrectomy related to renal carcinoma. Follow BMP at TCU. 2. Hypotension-recently placed on midodrine. Blood pressure improved. Continue midodrine 5 mg 3 times daily. 3. Hypercalcemia-daughter reports patient had extensive work-up for this in the past at [facility], no etiology was found. Improved with aggressive hydration. Calcium supplement discontinued. Intact PTH and PTH peptide pending. Vitamin D 30.8. Continue vitamin D supplementation. 4. Lactic acidosis-suspect secondary to #1. No evidence of infectious etiology. Resolved. 5. Recent syncope with fall secondary to orthostatic hypotension-improved on midodrine. Recent echocardiogram 03/21/2020 demonstrated an EF of 55%, mild mitral valve insufficiency, moderate tricuspid valve insufficiency. 6. Supratherapeutic INR-vitamin K 2.5 p.o. x1 given. Trend INR at TCU. Resume Coumadin at 2.5 mg daily when INR is less than or equal to 3. 7. [place]'s disease, with suspected acute adrenal crisis-previously on prednisone 2 mg nightly which was discontinued. Initially placed on IV Solu- Cortef which was transitioned to hydrocortisone 20 mg 3 times daily for 2 days, then patient will take hydrocortisone 20 mg in a.m. and 10 mg in p.m. preferably p.m. dose between 3 and 6 PM. Continue daily Florinef 0.1 mg daily. Patient has significantly improved during admission on hydrocortisone regimen. TCU is to follow-up with Dr. Vann on Monday to update her on patient clinical status and obtain any further recommendations. 8. History of recurrent DVTs/PE-Coumadin on hold due to supratherapeutic INR. Trend INR. Patient states it has been several years since her last DVT/PE. She states transitioning to novel anticoagulant has never been discussed with her. This may be discussed on an outpatient basis. With recent falls, risks/benefits of switching to novel anticoagulant would need to be discussed in length. 9. History of renal cancer-status post right partial nephrectomy. 10. Hypertension-no longer on regimen due to hypotension. 11. Hyperlipidemia-continue statin. 12. History of NSTEMI-on statin. General: Alert, Oriented x3, Cooperative HEENT: Atraumatic, PERRLA, EOMI, Normocephalic Neck: Supple, No JVD, Negative Carotid Bruits Lungs: Clear to auscultation, Normal air movement Cardiovascular: Regular rate, No murmurs Abdomen: Bowel Sounds Present, Soft, Non Tender, Non-Distended Extremities: No clubbing, No cyanosis, No edema, Capillary Refill Less than 3 Seconds Skin: No rashes, No breakdown Musculoskeletal: No Tenderness to Palpation of Joints or Extremities Neurological: Cranial nerves II-XII grossly intact, Neuro grossly intact Psych/Mental Status: Normal Affect, Appropriate Patient seen and examined prior to discharge. Physical assessment as noted above. Patient is stable for discharge with follow up recommendations as noted above. This patient was seen by PEDRO Butt under the supervision of Dr. Potts. - Physical Exam Vitals/I&O's: Vital Signs Temp Pulse Resp BP Pulse Ox 97.7 F L 61 16 148/92 H 95 04/04/20 05:00 04/04/20 06:56 04/04/20 05:00 04/04/20 05:00 04/04/20 05:00 Oxygen Delivery Method Room Air Weight: 134 lb 3.196 oz Body Mass Index (BMI) 24.5 Intake and Output for Last 24 Hours 04/02/20 04/03/20 04/04/20 23:59 23:59 23:59 Intake Total 4275.0 / 4395.0 587.5 / 587.5 Balance 4275.0 / 4395.0 587.5 / 587.5 Microbiology Past 72 Hours 04/02/20 14:35 Urine Catheter - Catheter Urine Culture - Final Aerococcus urinae 04/03/20 11:25 Mucosa - Nose SARS-CoV-2 Antigen (Rapid) - Final Laboratory Results 04/03/20 13:47: Vitamin D 25-Hydroxy 30.8 04/03/20 13:47: PTH Intact 13.1 L 04/03/20 13:47: Miscellaneous Test Pending 04/04/20 07:00: WBC 11.9 H, RBC 3.91 L, Hgb 11.2 L, Hct 36.1 L, MCV 92.3, MCH 28.6, MCHC 31.0 L, RDW Std Deviation 53.0 H, RDW Coeff of Slava 15.7 H, Plt Count 306, MPV 10.7 04/04/20 07:00: PT 71.9 H, INR 8.6 H* 04/04/20 07:00: Sodium 141, Potassium 3.6, Chloride 109 H, Carbon Dioxide 29.0, Anion Gap 3 L, BUN 46 H, Creatinine 1.36 H, Estim Creat Clear Calc 27.83, Est GFR (MDRD) Af Amer 49 L, Est GFR (MDRD) Non-Af 40 L, BUN/Creatinine Ratio 33.8 H , Glucose 121 H, Calcium 11.1 H Current Medications Acetaminophen (Acetaminophen 325 Mg Tablet) 650 mg PO Q6H PRN PRN PRN Reason: Pain Score 1-10/Temp > 100.7 F Last Admin: 04/03/20 23:35 Dose: 650 mg Documented by: Atorvastatin Calcium (Atorvastatin Calcium 10 Mg Tablet) 10 mg PO QHS [facility] Last Admin: 04/03/20 21:09 Dose: 10 mg Documented by: Fludrocortisone Acetate (Fludrocortisone Acetate 0.1 Mg Tablet) 0.1 mg PO DAILY@0800 [facility] Last Admin: 04/04/20 08:46 Dose: 0.1 mg Documented by: Gabapentin (Gabapentin 300 Mg Capsule) [facility] Last Admin: 04/04/20 08:46 Dose: 300 mg Documented by: Gabapentin (Gabapentin 300 Mg Capsule) 600 mg PO QHS [facility] Last Admin: 04/03/20 21:10 Dose: 600 mg Documented by: Hydrocortisone (Hydrocortisone 10 Mg Tablet) 20 mg PO TIDCM [facility] Last Admin: 04/04/20 08:45 Dose: 20 mg Documented by: Sodium Chloride () 1,000 mls @ 150 mls/hr IV .Q6H40M [facility] Last Admin: 04/04/20 03:21 Dose: 150 mls/hr Documented by: Sodium Chloride () 250 mls @ 15 mls/hr IV .[id number] PRN PRN Reason: Saline Flush Sodium Chloride () 250 mls @ 15 mls/hr IV .[id number] PRN PRN Reason: Additional IVPB Infusion Midodrine (Midodrine Hcl 5 Mg Tablet) 10 mg PO TIDCM [facility] Last Admin: 04/04/20 08:46 Dose: 10 mg Documented by: Nutritional Formula (Lactose Free) (Ensure Enlive 120 Ml Liquid) 120 ml PO 4X/DAY [facility] Last Admin: 04/04/20 08:48 Dose: Not Given Documented by: Ondansetron HCl (Ondansetron 4 Mg/2 Ml Vial) 4 mg IV Q8H PRN PRN PRN Reason: NAUSEA/VOMITING Sodium Chloride (0.9% Saline Lock 10 Ml Syringe) 10 - 40 ml IV UD PRN PRN Reason: SALINE FLUSH Home Medications: Medications to take at Discharge Calcium Carbonate/Vitamin D3 [Calcium 500-Vit D3 200 Tablet] 1 ea PO DAILY 03/24/16 L.acidoph,Fabioi, B.lactis [Probiotic] 1 ea PO DAILY 03/24/16 nitroglycerin 0.4 mg sublingual tablet 0.4 mg SUBLINGUAL Q5-15M PRN 05/21/18 Simvastatin 20 mg PO QHS 11/11/19 Cholecalciferol (Vitamin D3) [Vitamin D3] 1,000 unit PO DAILY 03/20/20 Cyanocobalamin (Vitamin B-12) [B-12] 1,000 mcg PO DAILY 03/20/20 Gabapentin 300 mg PO DAILY 03/20/20 Gabapentin 600 mg PO QHS 03/20/20 Acetaminophen [Tylenol] 1,000 mg PO DAILY PRN PRN 04/02/20 Denosumab [Prolia] 60 mg SQ .[id number] 04/02/20 Midodrine HCl 5 mg PO TID 04/02/20 Dupilumab [Dupixent Pen] 300 mg SQ .[id number] #[id number] 04/04/20 Fludrocortisone Acetate [Florinef] 0.1 mg PO DAILY@0800 tab 04/04/20 Hydrocortisone [Cortef] 20 mg PO TIDCM tab 04/04/20 Primary Care Physician: Amos Fulton MD [Primary Care Provider] - Please follow up with your Primary Care Physician in: 1 Week Please Follow Up With: Torsten Vann MD When: Call on monday to update on patient status. F/U within 1 week of DC. Disposition: [facility] facility Minutes spent on discharge:: 35 Patient Condition:: Stable Medical Necessity - Tobacco Use Smoking Status: Never smoker Tobacco Use: Non-smoker Meaningful Use Info Meaningful Use Diagnoses (Choose all that apply): None applicable
[2020-04-04] MEDS: Phytonadione (Vit K1) 5 MG TABLET 2.5 MG PO (10:19)
--- NOTE | 2020-04-04 10:38 | NURSING ---
called report to TCU, spoke with nurse Elizabeth. Okay to leave IV in at this time.
[2020-04-04 10:49] VITALS: BP 171/92; PULSE 62; RESP 18; TEMP 36.6; O2SAT 97
== END 2020-04-04 11:43 | disposition skilled nursing facility (03) | DRG 683 ==
LOC: ED 14:43 → PCU 17:12
PROVIDERS: Nurse Practitioner Family; Student in an Organized Health Care Education/Training Program; Admitting Provider Internal Medicine; Emergency Provider Emergency Medicine; PCP Internal Medicine; Visit Provider Internal Medicine
DX: N17.9 Acute kidney failure, unspecified (principal); E27.1 Primary adrenocortical insufficiency; E87.2 Acidosis; I95.9 Hypotension, unspecified; N18.32 Chronic kidney disease, stage 3b; E83.52 Hypercalcemia; R79.1 Abnormal coagulation profile; Z79.01 Long term (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; Z86.718 Personal history of other venous thrombosis and embolism; Z86.711 Personal history of pulmonary embolism; Z85.528 Personal history of other malignant neoplasm of kidney; Z90.5 Acquired absence of kidney; I12.9 Hypertensive chronic kidney disease with stage 1 through stage 4 chronic kidney disease, or unspecified chronic kidney disease; E78.5 Hyperlipidemia, unspecified; I25.2 Old myocardial infarction; R29.6 Repeated falls; Z79.899 Other long term (current) drug therapy; Z66 Do not resuscitate; Z79.52 Long term (current) use of systemic steroids; E86.0 Dehydration
CPT/HCPCS: 36415; 70450; 71045; 80048; 80053; 81001; 82306; 83605; 83970; 84484; 85025; 85027; 85610; 85730; 87040; 87077; 87086; 87088; 87426; 93005; 97110; 97162; 97166; 97535; 99285; J7030; A4216; J2405

== ENCOUNTER 2020-04-04 11:47 | Inpatient (IN) | payer MEDICARE, SELFPAY ==
[2020-04-02 17:43] VITALS: BMI 24.5
[2020-04-04 11:54] VITALS: BP 188/101; PULSE 60; RESP 17; TEMP 36.8; O2SAT 98; BMI 24.5
--- NOTE | 2020-04-04 15:00 | NURSING ---
Dr suarez here to see pt, new order to dc midodrine d/t elevated BP.
--- NOTE | 2020-04-04 15:22 | HP.PCM_ITS ---
Problem List (1) Debility Status: Acute (2) Weakness Status: Acute (3) Frequent falls Status: Acute (4) Hypotensive episode Status: Acute (5) Hypercalcemia Status: Acute (6) Supratherapeutic INR Status: Acute (7) NSTEMI (non-ST elevated myocardial infarction) Status: Chronic (8) 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 Status: Chronic (9) History of kidney cancer Status: Chronic (10) [place] disease Status: Chronic (11) Hyperlipidemia Status: Chronic Qualifiers: (12) Orthostatic hypotension Status: Chronic History of Present Illness Date of Admission: 04/04/20 Chief Complaint: Here for rehabilitation, strengthening, prior to discharge home with . 04/02/2020 The patient is a 74 year old Female with below past medical history presented to [facility] [place] Emergency Department with weakness. 04/02/2020 Chest X-ray normal. 04/02/2020 CT brain normal. History of [place] disease, Blood pressure low at home. Frequent falls at home, recent hospitalization. Hypotension treated with normal saline 1 liter IV bolus. Midodrine 10MG PO x 1 dose given for orthostatic hypotension. Elevated WBC, Lactic acid 2.1, Hypercalcemia. INR 8! 04/02/2020 Admit to Hospital. IV fluids for acute kidney injuy. Midodrine scheduled for orthostatic hypotension. PO prednisone for [place] Disease. Vitamin K 2.5MG PO x 1 dose, hold coumadin for INR of 8. 04/03/2020 Acute kidney injury slightly improved. Blood pressure improved with IV fluids, Midodrine 5MG TID. Infection ruled out. [place] disease, prednisone 2MG PO QHS stopped. Treated with IV Solu-Cortef, then Hydrocortisone 20MG TID x 2 days, then 20MG QAM, 10MG QPM. Continue Florinef 0.1MG daily to help orthostatic hypotension. Follow up with Dr. Vann 04/06/2020 for additional recommendations. 04/04/2020 Admit to TCU with debility, here for rehabilitation, strengthening, prior to discharge home with . Past Medical History Past Medical History (Chronic Problems): Chronic Problems (Last Updated 03/23/20 @ 07:58 by Jacquie Johnston) NSTEMI (non-ST elevated myocardial infarction) (Chronic) 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 (Chronic) History of kidney cancer (Chronic) [place] disease (Chronic) Recurrent deep vein thrombosis (DVT) (Chronic) History of pulmonary embolism (Chronic) Hyperlipidemia (Chronic) Orthostatic hypotension (Chronic) retirement (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 (Chronic) Medical History: Medical History (Last Updated 03/23/20 @ 07:58 by Jacquie Johnston) [place] disease (Chronic) E27.1 History of non-ST elevation myocardial infarction (NSTEMI) (Resolved) Onset Date: 04/2009 I25.2 possible coronary embolism Recurrent deep vein thrombosis (DVT) (Chronic) I82.409 History of pulmonary embolism (Chronic) Z86.711 Hyperlipidemia (Chronic) E78.5 Orthostatic hypotension (Chronic) I95.1 Atopic dermatitis L20.9 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, stage 3 N18.3 Cystocele with rectocele N81.10, N81.6 size 4 ring with support History of DVT (deep vein thrombosis) Z86.718 Osteopenia determined by x-ray M85.80 Acute electrocardiogram changes R94.31 Closed head injury Onset Date: 03/20/20 S09.90XA Hypoglycemia Onset Date: 03/20/20 E16.2 Hypotension I95.9 Pyelonephritis N12 Essential (primary) hypertension (Ruled-out) I10 Allergies ciprofloxacin [From Cipro] Allergy (Verified 04/02/20 14:08) Rash Penicillins Allergy (Verified 04/02/20 14:08) Rash Home Medications: Ambulatory Orders Medication Instructions Recorded L.acidoph,Paracasei, B.lactis 1 ea PO DAILY 03/24/16 [Probiotic] nitroglycerin 0.4 mg sublingual 0.4 mg SUBLINGUAL Q5-15M PRN 05/21/18 tablet Simvastatin 20 mg PO QHS 11/11/19 Cholecalciferol (Vitamin D3) 1,000 unit PO DAILY 03/20/20 [Vitamin D3] Cyanocobalamin (Vitamin B-12) 1,000 mcg PO DAILY 03/20/20 [B-12] Gabapentin 300 mg PO DAILY 03/20/20 Gabapentin 600 mg PO QHS 03/20/20 Acetaminophen [Tylenol] 1,000 mg PO DAILY PRN PRN 04/02/20 Denosumab [Prolia] 60 mg SQ .[id number] 04/02/20 Calcium Carbonate/Vitamin D3 1 ea PO DAILY 02/13/21 [Calcium 500-Vit D3 200 Tablet] Dupilumab [Dupixent Pen] 300 mg SQ .[id number] #0 04/04/20 Fludrocortisone Acetate [Florinef] 0.1 mg PO DAILY@0800 04/04/20 Hydrocortisone [Cortef] 20 mg PO TIDCM 04/04/20 Surgical History: Surgical History (Last Reviewed 09/24/19 @ 14:[address] 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 Psychiatric History: No pertinent psych hx FINANCIAL ASSOCIATE History: No pertinent FINANCIAL ASSOCIATE history Lives: Spouse/ Significant Other Smoking Status: Never smoker Tobacco Use: Non-smoker Alcohol: None Drugs: None - *Family History Maternal Family History: Family History (Last Reviewed 04/02/20 @ 17:11 by Jacinda Harrison NP, AUTOMOTIVE WARRANTY ADMINISTRATOR-C) Father CVA (cerebral vascular accident) Mother Myocardial infarction, Onset Age: 87 History Items: High Cholesterol, Heart Disease, Hypertension Paternal Family History: Family History (Last Reviewed 04/02/20 @ 17:11 by Jacinda Harrison NP, AUTOMOTIVE WARRANTY ADMINISTRATOR-C) Father CVA (cerebral vascular accident) Mother Myocardial infarction, Onset Age: 87 History Items: Stroke Sibling Family History: Family History (Last Reviewed 04/02/20 @ 17:11 by Jacinda Harrison NP, AUTOMOTIVE WARRANTY ADMINISTRATOR-C) Father CVA (cerebral vascular accident) Mother Myocardial infarction, Onset Age: 87 History Items: Renal Disease Review of Systems Constitutional: Denies: Chills, Fever, Weight Change HEENT: Denies: Head Aches, Sinus Congestion, Sinus Drainage Cardiovascular: Denies: Chest Pain, Palpitations Respiratory: Denies: Cough, Shortness of breath at rest, Sputum production Gastrointestinal: Denies: Abdominal Pain, Nausea, Vomiting Genitourinary: Denies: Dysuria Musculoskeletal: Denies: Joint Pain, Joint Tenderness Skin: Denies: Rash, Wounds Neurological: Denies: Numbness, Tingling, Focal weakness Psychiatric: Denies: Anxiety, Depression, Homicidal Ideations, Suicidal Ideations Hematologic/ Lymphatic: Denies: Easy Bruising, Easy Bleeding VTE Information - Inpt Only VTE Present on Admission: No VTE Mechan Device Prophylaxis: Knee High MILTON Hose VTE Pharm Prophylaxis ordered?: No Reason prophylaxis not ordered:: Treatment Not Indicated Patient Problems: Active and Suspected Problems (Last Updated 03/23/20 @ 07:58 by Jacquie Johnston) Debility (Acute) Weakness (Acute) Frequent falls (Acute) Hypotensive episode (Acute) Hypercalcemia (Acute) Supratherapeutic INR (Acute) - Physical Exam Vitals/I&O's: Vital Signs Temp Pulse Resp BP Pulse Ox 98.3 F 60 17 188/101 H 98 04/04/20 11:54 04/04/20 11:54 04/04/20 11:54 04/04/20 11:54 04/04/20 11:54 Oxygen Delivery Method Room Air Weight: 60.87 kg Body Mass Index (BMI) 24.5 Intake and Output for Last 24 Hours 04/02/20 04/03/20 04/04/20 23:59 23:59 23:59 Intake Total 120 / 120 Balance 120 / 120 General: Alert, Oriented x3, Cooperative HEENT: Atraumatic, PERRLA, EOMI, Normocephalic Neck: Supple, No JVD, Negative Carotid Bruits Lungs: Clear to auscultation, Normal air movement Cardiovascular: Regular rate, No murmurs Abdomen: Bowel Sounds Present, Soft, Non Tender Extremities: No edema, Capillary Refill Less than 3 Seconds Skin: No rashes, No breakdown Musculoskeletal: No Tenderness to Palpation of Joints or Extremities Neurological: Cranial nerves II-XII grossly intact Psych/Mental Status: Normal Affect, Appropriate Current Medications Acetaminophen (Acetaminophen 500 Mg Tablet) 1,000 mg PO DAILY PRN PRN PRN Reason: Pain 1-10 or Fever Atorvastatin Calcium (Atorvastatin Calcium 10 Mg Tablet) 10 mg PO QHS [facility] Calcium/Vitamin D (Calcium Carb/Vitamin D 1 Tablet Tablet) 1 tablet PO DAILYCM [facility] Cholecalciferol (Cholecalciferol (Vit D3) 1,000 Unit (25mcg)) 1,000 unit PO DAILYCM [facility] Cyanocobalamin (Cyanocobalamin 500 Mcg Tablet) 1,000 mcg PO DAILYCM [facility] Fludrocortisone Acetate (Fludrocortisone Acetate 0.1 Mg Tablet) 0.1 mg PO DAILY@0800 [facility] Gabapentin (Gabapentin 300 Mg Capsule) 300 mg PO DAILYCM [facility] Gabapentin (Gabapentin 300 Mg Capsule) 600 mg PO QHS [facility] Hydrocortisone (Hydrocortisone 10 Mg Tablet) 20 mg PO DAILY@0600 [facility] Hydrocortisone (Hydrocortisone 10 Mg Tablet) 10 mg PO DAILY@1800 [facility] Hydrocortisone (Hydrocortisone 10 Mg Tablet) 20 mg PO TIDCM [facility] Stop: 04/04/20 18:00 Lactobacillus Acidophilus (Lactobacillus Acidophilus) 1 tablet PO DAILY [facility] Nitroglycerin (Nitroglycerin (Inpatient Use) 0.4 Mg Tab.Subl) 0.4 mg SUBLINGUAL Q5M PRN PRN Reason: CARDIAC/CHEST PAIN Nutritional Formula (Lactose Free) (Ensure Enlive 120 Ml Liquid) 120 ml PO 4X/DAY [facility] Sodium Chloride (0.9% Saline Lock 10 Ml Syringe) 10 - 40 ml IV UD PRN PRN Reason: SALINE FLUSH Tuberculin PPD (Tuberculin,Purif.Prot.Deriv. 50 Tu/Ml Vial) 5 tu ID X1 ONE Stop: 04/05/20 10:01 Tuberculin PPD (Tuberculin,Purif.Prot.Deriv. 50 Tu/Ml Vial) 5 tu ID X1 ONE Stop: 04/12/20 10:01 Assessment/Plan All Active Problems (Last Updated 03/23/20 @ 07:58 by Jacquie Johnston) Debility (Acute) Weakness (Acute) Frequent falls (Acute) Hypotensive episode (Acute) Hypercalcemia (Acute) Supratherapeutic INR (Acute) History of non-ST elevation myocardial infarction (NSTEMI) (Resolved 04/2009) Pyelonephritis, acute (Resolved) Sepsis (Resolved) Essential (primary) hypertension (Ruled-out) 74 year old female with below past medical history significant for [place] Disease, hospitalized for hypotension, orthostatic hypotension, complicated by acute kidney injury, supratherapeutic INR, admitted to TCU with debility, here for rehabilitation, strengthening, prior to discharge home with . * Debility - PT/OT. * Pain - Tylenol 1000MG Q6H PRN pain (1-10). * Bowel - Miralax 17GM daily PRN, Milk of Magnesia 30ML daily PRN, Senna/colace 2 tablets BID PRN, Dulcolax 10MG daily PRN. * Adult immunization - Administer Prevnar 13, Pneumovax 23, Fluzone, COVID19 vaccine as appropriate. * DVT prophylaxis - Hold, on coumadin. * Hyperlipidemia - Atorvastatin 10MG QHS. * Calcium deficiency - Calcium D 1 tablet daily. * Vitamin D deficiency - D3 1000IU daily. * Vitamin B12 deficiency - B12 1000MCG daily. * Nutrition - Ensure Enlive 120ML 4x/day. * Orthostatic hypotension - Florinef 0.1MG daily. * Neuropathic pain - Gabapentin 300MG QAM, 600MG QHS. * [place] Disease - Cortef 20MG QAM, 10MG QPM, follow up with Dr. Torsten Vann. * GI prophylaxis - Lactobacillus 1 tablet daily. * Coronary Artery Disease - NTG 0.4MG Q5M PRN chest pain. * Recurrent DVT - Resume coumadin when INR < 3.0. * Hypertension - Amlodipine 5MG daily.
--- NOTE | 2020-04-04 15:50 | NURSING ---
pt wanting to be DNRCCA, no intubation. purple bracelet to lt wrist.
[2020-04-04 16:00] VITALS: BP 172/100; PULSE 69
--- NOTE | 2020-04-04 16:14 | NURSING ---
Addendum entered by Elizabeth Guzman 04/04/20 17:57: updated Dr Carrizales on recheck BP 173/93 HR 72, new order to give losartaan 100mg x1 and recheck BP in 2 hrs. Original Note: Dr Carrizales updated on elevated BP 172/10 HR 60's. new order for hydralazine 10mg x1. pt asymptomatic.
[2020-04-04 16:24] VITALS: BP 172/101; PULSE 69
[2020-04-04] MEDS: hydrALAZINE 10 MG Tablet PO (16:24)
[2020-04-04 16:35] VITALS: PULSE 69; RESP 16; O2SAT 97
[2020-04-04] MEDS: Hydrocortisone 10 MG Tablet 20 MG PO (17:47)
[2020-04-04 17:54] VITALS: BP 173/93; PULSE 72
[2020-04-04] MEDS: Losartan Potassium 100 MG Tablet PO (18:24)
[2020-04-04 20:40] VITALS: BP 151/89
[2020-04-04] MEDS: Menthol/Lanolin/Calamine/Znox 113 GM Tube 1 APPLIC TOPICAL (20:44)
[2020-04-04] MEDS: Atorvastatin Calcium 10 MG Tablet PO (20:45)
[2020-04-04] MEDS: Gabapentin 300 MG Capsule 600 MG PO (20:46)
[2020-04-05] MEDS: Acetaminophen 500 MG Tablet 1000 MG PO ×2 (02:59→21:03)
[2020-04-05 03:14] VITALS: BP 163/78; PULSE 87; RESP 16; TEMP 36.6; O2SAT 97
[2020-04-05] MEDS: Menthol/Lanolin/Calamine/Znox 113 GM Tube 1 APPLIC TOPICAL ×2 (06:14→21:05)
[2020-04-05] MEDS: Hydrocortisone 10 MG Tablet 20 MG PO (06:14)
[2020-04-05 06:44] LABS: Absolute Lymphocyte Count 0.99 X10^3/uL (0.83-4.51); Absolute Neutrophil Count 10.7 X10^3/uL (2.0-7.7); Basophil# 0.03 X10^3/uL; Basophil% 0.2 % (0-1); Eosinophil# 0.08 X10^3/uL; Eosinophils% 0.6 % (0-5); Hematocrit 34.4 % (37-47); Hemoglobin 11.3 g/dL (12.0-15.0); Lymphocyte # 0.99 X10^3/ul (4.0); Lymphocyte % 7.5 % (19-41); Mean Corp Hgb Conc 32.8 g/dL (32-36); Mean Corpuscular Hgb 29.3 pg (27.0-32.0); Mean Corpuscular Volume 89.1 fL (81-99); Mean Platelet Vol. 10.7 fl (6.2-12.0); Monocyte# 1.25 X10^3/uL; Monocyte% 9.5 % (0-10); NRBC Flagged by Analyzer 0 % (0-5); Neutrophil # 10.74 X10^3/uL (2.7-7.7); Neutrophil % 81.3 % (47-70); Platelet Count 297 K/mm3 (150-450); RBC Distribution Width CV 15.5 % (11.6-14.6); RBC Distribution Width SD 50.4 fl (35.1-43.9); Red Blood Count 3.86 M/mm3 (4.2-5.4); White Blood Count 13.2 K/mm3 (4.4-11.0)
[2020-04-05 06:50] LABS: International Normalized Ratio 1.9; Prothrombin Time (Protime)PT. 21.4 SECONDS (11.7-14.9)
[2020-04-05 06:58] LABS: Anion Gap 5 (5-15); BUN 51 mg/dL (7-18); BUN/Creat Ratio 34.5 RATIO (10-20); Chloride 109 mmol/L (98-107); Creatinine, Serum 1.48 mg/dL (0.55-1.02); EST Glomerular Filtration Rate 36 mL/min (>60); Est Glom Filt Rate - Afr Amer 44 mL/min (>60); Estimated Creatinine Clearance 25.58 ml/min; Glucose 130 mg/dL (74-106); Potassium 3.6 mmol/L (3.5-5.1); Sodium Level 142 mmol/L (136-145)
--- NOTE | 2020-04-05 07:48 | NURSING ---
inr 1.9 today, dr reyes updated, new order to restart coumadin 2.5mg daily today. wants INRs checked .
[2020-04-05] MEDS: Gabapentin 300 MG Capsule PO (08:38)
[2020-04-05] MEDS: Calcium Carb/Vitamin D 1 TABLET Tablet PO (08:38)
[2020-04-05] MEDS: Fludrocortisone Acetate 0.1 MG Tablet PO (08:38)
[2020-04-05] MEDS: Cyanocobalamin 500 MCG Tablet 1000 MCG PO (08:38)
[2020-04-05] MEDS: amLODIPine 5 MG Tablet PO (08:40)
[2020-04-05 08:41] VITALS: BP 154/84; PULSE 82
[2020-04-05] MEDS: Tuberculin,Purif.prot.deriv. 50 TU/ML Vial 5 ML ID (10:20)
[2020-04-05 10:42] VITALS: BP 148/93; PULSE 68
[2020-04-05 15:01] VITALS: BP 138/77; PULSE 81; RESP 15; TEMP 36.1; O2SAT 95
[2020-04-05] MEDS: Hydrocortisone 10 MG Tablet PO (17:21)
[2020-04-05] MEDS: Atorvastatin Calcium 10 MG Tablet PO (21:01)
[2020-04-05] MEDS: Gabapentin 300 MG Capsule 600 MG PO (21:02)
[2020-04-05 22:00] VITALS: RESP 16
[2020-04-06 04:00] VITALS: BP 135/85; PULSE 73; RESP 15; TEMP 36.7; O2SAT 96
[2020-04-06] MEDS: Hydrocortisone 10 MG Tablet 20 MG PO (06:11)
[2020-04-06] MEDS: amLODIPine 5 MG Tablet PO (06:11)
[2020-04-06] MEDS: Menthol/Lanolin/Calamine/Znox 113 GM Tube 1 APPLIC TOPICAL ×2 (06:12→21:00)
[2020-04-06 06:17] LABS: International Normalized Ratio 1.3; Prothrombin Time (Protime)PT. 15.4 SECONDS (11.7-14.9)
[2020-04-06] MEDS: Fludrocortisone Acetate 0.1 MG Tablet PO (08:43)
[2020-04-06] MEDS: Cyanocobalamin 500 MCG Tablet 1000 MCG PO (08:43)
[2020-04-06] MEDS: Calcium Carb/Vitamin D 1 TABLET Tablet PO (08:43)
[2020-04-06] MEDS: Gabapentin 300 MG Capsule PO (08:43)
--- NOTE | 2020-04-06 09:53 | NURSING ---
Addendum entered by Kirsty Jones 04/07/20 15:30: Talked to Dr. Vann she will be looking at her labs and call back with new orders if needed. Original Note: Called to update Dr. Vann on pt. Got answering service and left message to return call.
[2020-04-06 11:03] VITALS: PULSE 88; RESP 16; O2SAT 97
--- NOTE | 2020-04-06 14:10 | PCM.PN.RX ---
<Fara Cook - Last Filed: 04/06/20 14:10> Progress Note - Pharmacy Subjective: TCU Admission Objective: Allergies ciprofloxacin [From Cipro] Allergy (Verified 04/02/20 14:08) Rash Penicillins Allergy (Verified 04/02/20 14:08) Rash Current Medications Generic Name Dose Route Start Last Admin Trade Name Freq PRN Reason Stop Dose Admin Acetaminophen 1,000 mg 04/04/20 15:45 04/05/20 21:03 Acetaminophen 500 Mg Tablet PO 1,000 mg Q6H PRN Administration Pain Score 1-10 Amlodipine Besylate 5 mg 04/06/20 06:00 04/06/20 06:11 Amlodipine 5 Mg Tablet PO 5 mg DAILY [facility] Administration Atorvastatin Calcium 10 mg 04/04/20 22:00 04/05/20 21:01 Atorvastatin Calcium 10 Mg Tablet PO 10 mg QHS [facility] Administration Bisacodyl 10 mg 04/04/20 15:45 Bisacodyl 5 Mg Tablet PO DAILY PRN Constipation Calamine/Phenol 1 applic 04/04/20 22:00 04/06/20 06:12 Menthol/Lanolin/Calamine/Znox 113 Gm Tube TOPICAL 1 applicatio 0600,2200 [facility] Administration Protocol Calcium/Vitamin D 1 tablet 04/05/20 08:00 04/06/20 08:43 Calcium Carb/[facility]itamin [facility] 1 [facility] Cholecalciferol 1,000 unit 04/05/20 08:00 04/06/20 08:43 Cholecalciferol (Vit D3) 1,000 Unit (25mcg) PO 1,000 unit DAILYCM [facility] Administration Cyanocobalamin 1,000 mcg 04/05/20 08:00 04/06/20 08:43 Cyanocobalamin 500 Mcg Tablet PO 1,000 mcg DAILYCM [facility] Administration Fludrocortisone Acetate 0.1 mg 04/05/20 08:00 04/06/20 08:43 Fludrocortisone Acetate 0.1 Mg Tablet PO 0.1 mg DAILY@0800 [facility] Administration Gabapentin 300 mg 04/05/20 08:00 04/06/20 08:43 Gabapentin 300 Mg Capsule PO 300 mg DAILYCM [facility] Administration Gabapentin 600 mg 04/04/20 22:00 04/05/20 21:02 Gabapentin 300 Mg Capsule PO 600 mg QHS [facility] Administration Hydrocortisone 20 mg 04/05/20 06:00 04/06/20 06:11 Hydrocortisone 10 Mg Tablet PO 20 mg DAILY@0600 [facility] Administration Hydrocortisone 10 mg 04/05/20 18:00 04/05/20 17:21 Hydrocortisone 10 Mg Tablet PO 10 mg DAILY@1800 [facility] Administration Lactobacillus Acidophilus 1 tablet 04/05/20 06:00 04/06/20 06:11 Lactobacillus Acidophilus PO 1 tablet DAILY [facility] Administration Magnesium Hydroxide 30 ml 04/04/20 15:44 Magnesium Hydroxide 30 Ml Udc PO DAILY PRN Constipation Nitroglycerin 0.4 mg 04/04/20 12:39 Nitroglycerin (Inpatient Use) 0.4 Mg Tab.Subl SUBLINGUAL Q5M PRN CARDIAC/CHEST PAIN Nutritional Formula (Lactose Free) 120 ml 04/04/20 17:00 04/06/20 13:58 Ensure Enlive 120 Ml Liquid PO 120 ml 4X/DAY [facility] Administration Polyethylene Glycol 17 gm 04/04/20 15:44 Polyethylene Glycol 3350 17 Gm Packet PO DAILY PRN Constipation Senna/Docusate Sodium 2 tablet 04/04/20 15:45 Senna/Docusate Sodium 1 Tablet PO BID PRN Constipation Sodium Chloride 10 - 40 ml 04/04/20 15:00 0.9% Saline Lock 10 Ml Syringe IV UD PRN SALINE FLUSH Tuberculin PPD 5 tu 04/12/20 10:00 Tuberculin,Purif.Prot.Deriv. 50 Tu/Ml Vial ID 04/12/20 10:01 X1 ONE Warfarin Sodium 2.5 mg 04/05/20 17:00 04/05/20 17:21 Warfarin 2.5 Mg Tablet PO 2.5 mg DAILY@1700 [facility] Administration Problem List (Last Updated 03/23/20 @ 07:58 by Jacquie Johnston) Debility (Acute) Weakness (Acute) Frequent falls (Acute) Hypotensive episode (Acute) Hypercalcemia (Acute) Supratherapeutic INR (Acute) NSTEMI (non-ST elevated myocardial infarction) (Chronic) 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 (Chronic) History of kidney cancer (Chronic) [place] disease (Chronic) Hyperlipidemia (Chronic) Orthostatic hypotension (Chronic) Vital Signs Temp Pulse Resp BP Pulse Ox 98.1 F 88 16 135/85 H 97 04/06/20 04:00 04/06/20 11:03 04/06/20 11:03 04/06/20 04:00 04/06/20 11:03 Oxygen Delivery Method Room Air Weight: 60.87 kg Body Mass Index (BMI) 24.5 Sodium 142 mmol/L (136-145) 04/05/20 06:12 Potassium 3.6 mmol/L (3.5-5.1) 04/05/20 06:12 Chloride 109 mmol/L (98-107) H 04/05/20 06:12 Carbon Dioxide 28.0 mmol/L (21.0-32.0) 04/05/20 06:12 Anion Gap 5 (5-15) 04/05/20 06:12 BUN 51 mg/dL (7-18) H 04/05/20 06:12 Creatinine 1.48 mg/dL (0.55-1.02) H 04/05/20 06:12 Est GFR (MDRD) Af Amer 44 mL/min (>60) L 04/05/20 06:12 Est GFR (MDRD) Non-Af 36 mL/min (>60) L 04/05/20 06:12 BUN/Creatinine Ratio 34.5 RATIO (10-20) H 04/05/20 06:12 Glucose 130 mg/dL (74-106) H 04/05/20 06:12 Assessment/Plan: 1. Pain: acetaminophen 1000mg PO Q6H PRN pain (-11/29). Please continue to monitor for increased pain and PRN usage. 2. [place]?s Disease: hydrocortisone 20mg PO QAM and 10mg PO QPM. Follow up with Dr. Torsten Vann. Please continue to monitor for elevated blood sugars and BP. *3. Hyperlipidemia: atorvastatin 10mg PO QHS. Please continue to monitor LFTs and for muscle pain. Please consider ordering a lipid panel as clinically appropriate (last unknown). 4. Hypertension: amlodipine 5mg PO daily. Please continue to monitor BP (last 135/85) and HR (last 88). 5. Coronary artery disease: nitroglycerin 0.4mg SL Q5M PRN chest pain. Please continue to monitor for chest pain and PRN usage. *6. Recurrent DVT: warfarin 2.5mg PO daily. Please continue to monitor INR (last 1.3) and for S/S of bleeding. Please consider Lovenox bridge until INR is therapeutic. Thanks. 7. Orthostatic hypotension: fludrocortisone 0.1mg PO daily. Please continue to monitor for elevated blood sugars and BP. 8. Neuropathic pain: gabapentin 300mg PO QAM and 600mg PO QHS. Please continue to monitor renal function and sedation. 9. GI prophylaxis: Lactobacillus 1T PO daily. Please continue to monitor for diarrhea. *10. Vitamin/mineral deficiencies: cholecalciferol 1000IU PO daily, cyanocobalamin 1000mcg PO daily, Calcium /vitamin D 1T PO daily. Please continue to monitor serum calcium and vitamin D levels. Please consider ordering a Vitamin B12 level. Thanks. Psychotropic Medications: None Unnecessary Medications: None Bowel Regimen: Miralax 17gm PO daily PRN constipation, senna/docusate 2T PO BID PRN constipation, MOM 30mL PO daily PRN constipation, bisacodyl 10mg IA daily PRN constipation. Please continue to monitor for constipation and PRN usage. Date of Note:: 04/06/20 - Provider Comments Provider responsibility: Provider responsible to enter orders to implement recommendations <Dustin Carrizales Chi - Last Filed: 04/06/20 16:49> Progress Note - Pharmacy Subjective: [] Objective: Allergies ciprofloxacin [From Cipro] Allergy (Verified 04/02/20 14:08) Rash Penicillins Allergy (Verified 04/02/20 14:08) Rash Current Medications Generic Name Dose Route Start Last Admin Trade Name Freq PRN Reason Stop Dose Admin Acetaminophen 1,000 mg 04/04/20 15:45 04/05/20 21:03 Acetaminophen 500 Mg Tablet PO 1,000 mg Q6H PRN Administration Pain Score 1-10 Amlodipine Besylate 5 mg 04/06/20 06:00 04/06/20 06:11 Amlodipine 5 Mg Tablet PO 5 mg DAILY [facility] Administration Atorvastatin Calcium 10 mg 04/04/20 22:00 04/05/20 21:01 Atorvastatin Calcium 10 Mg Tablet PO 10 mg QHS [facility] Administration Bisacodyl 10 mg 04/04/20 15:45 Bisacodyl 5 Mg Tablet PO DAILY PRN Constipation Calamine/Phenol 1 applic 04/04/20 22:00 04/06/20 06:12 Menthol/Lanolin/Calamine/Znox 113 Gm Tube TOPICAL 1 applicatio 0600,2200 [facility] Administration Protocol Calcium/Vitamin D 1 tablet 04/05/20 08:00 04/06/20 08:43 Calcium Carb/Vitamin D 1 Tablet [facility] Cholecalciferol 1,000 unit 04/05/20 08:00 04/06/20 08:43 Cholecalciferol (Vit D3) 1,000 Unit (25mcg) [facility] Administration Cyanocobalamin 1,000 mcg 04/05/20 08:00 04/06/20 08:43 Cyanocobalamin 500 Mcg Tablet PO 1,[facility] Administration Fludrocortisone Acetate 0.1 mg 04/05/20 08:00 04/06/20 08:43 Fludrocortisone Acetate 0.1 Mg Tablet PO 0.1 mg DAILY@0800 [facility] Administration Gabapentin 300 mg 04/05/20 08:00 04/06/20 08:43 Gabapentin 300 Mg Capsule [facility] Administration Gabapentin 600 mg 04/04/20 22:00 04/05/20 21:02 Gabapentin 300 Mg Capsule PO 600 mg QHS [facility] Administration Hydrocortisone 20 mg 04/05/20 06:00 04/06/20 06:11 Hydrocortisone 10 Mg Tablet PO 20 mg DAILY@0600 [facility] Administration Hydrocortisone 10 mg 04/05/20 18:00 04/05/20 17:21 Hydrocortisone 10 Mg Tablet PO 10 mg DAILY@1800 [facility] Administration Lactobacillus Acidophilus 1 tablet 04/05/20 06:00 04/06/20 06:11 Lactobacillus Acidophilus PO 1 tablet DAILY [facility] Administration Magnesium Hydroxide 30 ml 04/04/20 15:44 Magnesium Hydroxide 30 Ml Udc PO DAILY PRN Constipation Nitroglycerin 0.4 mg 04/04/20 12:39 Nitroglycerin (Inpatient Use) 0.4 Mg Tab.Subl SUBLINGUAL Q5M PRN CARDIAC/CHEST PAIN Nutritional Formula (Lactose Free) 120 ml 04/04/20 17:00 04/06/20 13:58 Ensure Enlive 120 Ml Liquid PO 120 ml 4X/DAY [facility] Administration Polyethylene Glycol 17 gm 04/04/20 15:44 Polyethylene Glycol 3350 17 Gm Packet PO DAILY PRN Constipation Senna/Docusate Sodium 2 tablet 04/04/20 15:45 Senna/Docusate Sodium 1 Tablet PO BID PRN Constipation Sodium Chloride 10 - 40 ml 04/04/20 15:00 0.9% Saline Lock 10 Ml Syringe IV UD PRN SALINE FLUSH Tuberculin PPD 5 tu 04/12/20 10:00 Tuberculin,Purif.Prot.Deriv. 50 Tu/Ml Vial ID 04/12/20 10:01 X1 ONE Warfarin Sodium 2.5 mg 04/05/20 17:00 04/05/20 17:21 Warfarin 2.5 Mg Tablet PO 2.5 mg DAILY@1700 [facility] Administration Problem List (Last Updated 03/23/20 @ 07:58 by Jacquie Johnston) Debility (Acute) Weakness (Acute) Frequent falls (Acute) Hypotensive episode (Acute) Hypercalcemia (Acute) Supratherapeutic INR (Acute) NSTEMI (non-ST elevated myocardial infarction) (Chronic) 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 (Chronic) History of kidney cancer (Chronic) [place] disease (Chronic) Hyperlipidemia (Chronic) Orthostatic hypotension (Chronic) Vital Signs Temp Pulse Resp BP Pulse Ox 97.4 F L 91 16 119/76 95 04/06/20 15:08 04/06/20 15:08 04/06/20 15:08 04/06/20 15:08 04/06/20 15:08 Oxygen Delivery Method Room Air Weight: 60.87 kg Body Mass Index (BMI) 24.5 Sodium 142 mmol/L (136-145) 04/05/20 06:12 Potassium 3.6 mmol/L (3.5-5.1) 04/05/20 06:12 Chloride 109 mmol/L (98-107) H 04/05/20 06:12 Carbon Dioxide 28.0 mmol/L (21.0-32.0) 04/05/20 06:12 Anion Gap 5 (5-15) 04/05/20 06:12 BUN 51 mg/dL (7-18) H 04/05/20 06:12 Creatinine 1.48 mg/dL (0.55-1.02) H 04/05/20 06:12 Est GFR (MDRD) Af Amer 44 mL/min (>60) L 04/05/20 06:12 Est GFR (MDRD) Non-Af 36 mL/min (>60) L 04/05/20 06:12 BUN/Creatinine Ratio 34.5 RATIO (10-20) H 04/05/20 06:12 Glucose 130 mg/dL (74-106) H 04/05/20 06:12 Assessment/Plan: Psychotropic Medications: Unnecessary Medications: Bowel Regimen: - Provider Comments Provider responsibility: Provider responsible to enter orders to implement recommendations Provider Comments to Recommendations by Pharmacy: Agree
[2020-04-06 15:08] VITALS: BP 119/76; PULSE 91; RESP 16; TEMP 36.3; O2SAT 95
[2020-04-06 17:20] VITALS: BP 142/89; PULSE 81
[2020-04-06] MEDS: Hydrocortisone 10 MG Tablet PO (17:23)
[2020-04-06] MEDS: Gabapentin 300 MG Capsule 600 MG PO (20:57)
[2020-04-06] MEDS: Atorvastatin Calcium 10 MG Tablet PO (20:58)
[2020-04-07 05:27] VITALS: BP 140/87; PULSE 79; RESP 18; TEMP 36.4; O2SAT 93
[2020-04-07] MEDS: Hydrocortisone 10 MG Tablet 20 MG PO (05:28)
[2020-04-07] MEDS: amLODIPine 5 MG Tablet PO (05:29)
[2020-04-07] MEDS: Menthol/Lanolin/Calamine/Znox 113 GM Tube 1 APPLIC TOPICAL ×2 (05:30→21:32)
[2020-04-07] MEDS: Gabapentin 300 MG Capsule PO (09:08)
[2020-04-07] MEDS: Cyanocobalamin 500 MCG Tablet 1000 MCG PO (09:08)
[2020-04-07] MEDS: Calcium Carb/Vitamin D 1 TABLET Tablet PO (09:08)
[2020-04-07] MEDS: Fludrocortisone Acetate 0.1 MG Tablet PO (09:09)
--- NOTE | 2020-04-07 12:43 | CASEMGMT ---
Social Work Discussed patient's code status. Pt confirmed DNR-CCA, no intubation. MOLST form reviewed, communication to , placed in chart. Pt unsure if she has advanced directives completed. Offered to assist if needed. Palliative screen completed. Discussed Palliative - pt declined, no symptoms to manage. Explained [facility] insurance with NRD 04/07 and continued stay is not guaranteed. Pt lives at home with her whom does have cancer and she assists with showers. Dtr lives nearby and can assist as needed. Will continue to follow. Piedad Noguera, HOME LENDING OFFICER [employer]ING MACHINE OPERATOR
[2020-04-07 13:15] VITALS: BP 114/78; PULSE 91; RESP 14; TEMP 36.3; O2SAT 95
[2020-04-07] MEDS: Hydrocortisone 10 MG Tablet PO (18:04)
[2020-04-07 21:15] VITALS: PULSE 89; RESP 16; O2SAT 95
[2020-04-07] MEDS: Acetaminophen 500 MG Tablet 1000 MG PO (21:32)
[2020-04-07] MEDS: Atorvastatin Calcium 10 MG Tablet PO (21:32)
[2020-04-07] MEDS: Gabapentin 300 MG Capsule 600 MG PO (21:32)
[2020-04-07 22:00] VITALS: BP 130/79; PULSE 89; RESP 16; TEMP 36.7
[2020-04-08 04:00] VITALS: BP 131/79; PULSE 92; RESP 16; TEMP 36.2; O2SAT 94
[2020-04-08] MEDS: amLODIPine 5 MG Tablet PO (05:07)
[2020-04-08] MEDS: Hydrocortisone 10 MG Tablet 20 MG PO (05:07)
[2020-04-08] MEDS: Menthol/Lanolin/Calamine/Znox 113 GM Tube 1 APPLIC TOPICAL ×2 (05:07→20:45)
[2020-04-08] MEDS: Cyanocobalamin 500 MCG Tablet 1000 MCG PO (08:54)
[2020-04-08] MEDS: Fludrocortisone Acetate 0.1 MG Tablet PO (08:54)
[2020-04-08] MEDS: Gabapentin 300 MG Capsule PO (08:54)
[2020-04-08] MEDS: Calcium Carb/Vitamin D 1 TABLET Tablet PO (08:54)
[2020-04-08 09:07] LABS: Vitamin D,25 Hydroxy 33.5 ng/mL
[2020-04-08 10:00] VITALS: PULSE 90; RESP 16; O2SAT 96
--- NOTE | 2020-04-08 11:35 | CASEMGMT ---
Social Work IDT met with patient, and dtr via conference call for care plan meeting. Discussed patient's progress in therapy and nursing. Pt is progressing well. Explained [facility] insurance with NRD 04/07 and continued stay is not guaranteed. The goal is for pt to return home with . stated he can take his own showers now. Dtr can assist if needed. Dtr and pt agreeable for SW to assist with completing advanced directives. Will continue to follow. Piedad Noguera MSW ABRASIVE WATER JET CUTTER OPERATOR
[2020-04-08 14:48] VITALS: BP 140/80; PULSE 103; RESP 16; TEMP 37.1; O2SAT 95
--- NOTE | 2020-04-08 15:52 | CHAPLAIN ---
Type of Pastoral Visit _x__ Initial Visit ___ Follow-up Visit ___ On-call Visit ___ General Patient Visit ___ Spiritual Assessment ___ Family Conference ___ Bereavement ___ Rapid Response ___ Code Blue ___ Other (describe below) Pastoral Care Referral From _x__ Patient ___ Family ___ Nurse ___ Physician ___ Pin Machine Operator ___ Corrosion Engineer ___ Other (describe below) Sacrament/Intervention _x__ Active listening ___ Anointing ___ Worship ___ Bereavement ___ Communion _x__ Cierra exploration ___ _x__ Life review _x__ Prayer ___ Reconciliation ___ Sacrament of Sick _x__ Supportive presence ___ Wedding ___ Other (describe below) Pastoral Comments patient is very talkative; pt has goal of going to grandsons wedding in July and to have her own 60th wedding anniversary when able; pt concern is also for who has cancer.
--- NOTE | 2020-04-08 16:47 | CASEMGMT ---
Addendum entered by Piedad Noguera 04/09/20 11:56: Therapy recommending rollator. Spoke with pt and dtr whom are agreeable to paying $60 fee. Referral made to [facility]. Original Note: Social Work Insurance issued LCD 04/10, DC 04/11. Spoke with dtr about DC date and plans. Dtr agreeable and can transport. Discussed outpatient or HHC therapy. Dtr would prefer HHC due to weather and transportation. Pt was set up with [facility] prior and inquired if she would like to use them or choose another agency. Dtr prefers [facility]. Referral made [facility] PT/OT/SN. No DME needs. Pt has FWW and shower chair. Spoke with pt about above information and she is agreeable. Plan: DC home with 04/[address] [facility] PT/OT/SN, No DME LUIS ALFREDO Gutiérrez CODER
--- NOTE | 2020-04-08 19:47 | DCINST_ITS ---
- Discharge Diagnoses Current Active Problems: Current Active and Chronic Problems (Last Updated 03/23/20 @ 07:58 by Jacquie Johntson) Debility (Acute) Weakness (Acute) Frequent falls (Acute) Hypotensive episode (Acute) Hypercalcemia (Acute) Supratherapeutic INR (Acute) NSTEMI (non-ST elevated myocardial infarction) (Chronic) 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 (Chronic) History of kidney cancer (Chronic) [place] disease (Chronic) Hyperlipidemia (Chronic) Orthostatic hypotension (Chronic) You will use the following diet at home:: No restrictions, Regular Your food should be the consistency of: Regular Your liquids should be the consistency of: Regular/Thin Discharge Activity: Return to Normal Activity, May Shower, Use Walker Weight Bearing Status: Weight bearing as tolerated Call your doctor if you observe: Fever of 101 or Higher, Inability to urinate, Inability to have a bowel movement, Shortness of breath, Chest pain, Uncontrolled pain Allergies/Adverse Reactions: Allergies ciprofloxacin [From Cipro] Allergy (Verified 04/02/20 14:08) Rash Penicillins Allergy (Verified 04/02/20 14:08) Rash Medications to take at Discharge L.acidoph,Paracasei, B.lactis [Probiotic] 1 ea PO DAILY 03/24/16 nitroglycerin 0.4 mg sublingual tablet 0.4 mg SUBLINGUAL Q5-15M PRN 05/21/18 Simvastatin 20 mg PO QHS 11/11/19 Cholecalciferol (Vitamin D3) [Vitamin D3] 1,000 unit PO DAILY 03/20/20 Cyanocobalamin (Vitamin B-12) [B-12] 1,000 mcg PO DAILY 03/20/20 Gabapentin 300 mg PO DAILY 03/20/20 Gabapentin 600 mg PO QHS 03/20/20 Denosumab [Prolia] 60 mg SQ .[id number] 04/02/20 Calcium Carbonate/Vitamin D3 [Calcium 500-Vit D3 200 Tablet] 1 ea PO DAILY 04/04/20 Dupilumab [Dupixent Pen] 300 mg SQ .[id number] #0 04/04/20 Acetaminophen [Tylenol] 1,000 mg PO Q6H PRN tab 04/08/20 Amlodipine [Norvasc] 5 mg PO DAILY #30 tab 04/08/20 Fludrocortisone Acetate [Florinef] 0.1 mg PO DAILY@0800 #30 tab 04/08/20 Fluticasone 0.05% [Flonase Nasal [place]] 1 spray NASAL QHS #1 nasal.sry 04/08/20 Hydrocortisone [Cortef] 10 mg PO DAILY@1800 #30 tab 04/08/20 Hydrocortisone [Cortef] 20 mg PO DAILY@0600 #60 tab 04/08/20 Menthol/Lanolin/Calamine/Znox [Calmoseptine Ointment] 1 applic TOPICAL 0600,2200 tube 04/08/20 Warfarin [Coumadin] 2.5 mg PO DAILY@1700 #30 tab 04/08/20 The following prescriptions were given: Hydrocortisone [Cortef] 10 mg PO DAILY@1800 #30 tab Transmission Status: Pending to [employer] #30 Hydrocortisone [Cortef] 20 mg PO DAILY@0600 #60 tab Transmission Status: Pending to [employer] #30 Warfarin [Coumadin] 2.5 mg PO DAILY@1700 #30 tab Transmission Status: Pending to [employer] #30 Fluticasone 0.05% [Flonase Nasal [place]] 1 spray NASAL QHS #1 nasal.sry Transmission Status: Pending to [employer] #30 Fludrocortisone Acetate [Florinef] 0.1 mg PO DAILY@0800 #30 tab Transmission Status: Pending to [employer] #30 Amlodipine [Norvasc] 5 mg PO DAILY #30 tab Transmission Status: Pending to [employer] #30 Orders to be completed after discharge: Prothrombin Time w/INR Time Frame: 2 Days, Facility: [facility], Location: Laboratory Primary Care Physician: Amos Fulton MD [Primary Care Provider] - Please follow up with your Primary Care Physician in: 1 week. Test Results: Test results from this visit will be discussed in further detail at your follow- up appointment, if applicable. Please Follow Up With: Amos Fulton MD When: 1 wk after DC from TCU Please Follow Up With: Torsten Vann MD When: 1 week after DC from TCU Proposed Discharge Date: 04/11/20
--- NOTE | 2020-04-08 19:49 | PCM.DC.SUM ---
Discharge Date and Diagnosis - Problem List Patient Problems: Active and Suspected Problems (Last Updated 03/23/20 @ 07:58 by Jacquie Johnston) Debility (Acute) Weakness (Acute) Frequent falls (Acute) Hypotensive episode (Acute) Hypercalcemia (Acute) Supratherapeutic INR (Acute) Date of Admission: 04/04/20 Date of Discharge: 04/11/20 - Primary Discharge Diagnosis Acute Problems: Active Problems (Last Updated 03/23/20 @ 07:58 by Jacquie Johnston) Debility (Acute) Weakness (Acute) Frequent falls (Acute) Hypotensive episode (Acute) Hypercalcemia (Acute) Supratherapeutic INR (Acute) - Secondary Discharge Diagnosis Chronic Problems: Chronic Problems (Last Updated 03/23/20 @ 07:58 by Jacquie Johnston) NSTEMI (non-ST elevated myocardial infarction) (Chronic) 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 (Chronic) History of kidney cancer (Chronic) [place] disease (Chronic) Recurrent deep vein thrombosis (DVT) (Chronic) History of pulmonary embolism (Chronic) Hyperlipidemia (Chronic) Orthostatic hypotension (Chronic) retirement (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 (Chronic) Hospital Course and Treatment Imaging Results: 04/04/20 12:32 Diet: Regular - General Food consistency:: Regular Liquid Consistency:: Regular/Thin Dietary Modifications:: No Added Salt Is pt able to select menu?: Yes Labs (Last 48 Hours) 04/04/20 04/08/20 04/08/20 Unknown 05:20 05:20 Vitamin D 25-Hydroxy 33.5 Vit D 1,25-Dihydroxy Pending COVID-19 (NAN) Not Detected Operations: None Procedures: None Summary of Care Provided: The patient is a 74 year old Female with below past medical history significant for K[place] Disease, hospitalized for hypotension, orthostatic hypotension, complicated by acute kidney injury, supratherapeutic INR, admitted to TCU with debility, here for rehabilitation, strengthening, prior to discharge home with . Midodrine intolerable due to elevated blood pressure. Amlodipine 5MG daily added due to hypertension, elevated blood pressure.. Warfarin lowered to 2.5MG daily, will need INR monitoring for recurrent DVT. Discharge home with , [facility] PT/OT/SN, No Durable Medical Equipment. Patient Problems: Active and Suspected Problems (Last Updated 03/23/20 @ 07:58 by Jacquie Johnston) Debility (Acute) Weakness (Acute) Frequent falls (Acute) Hypotensive episode (Acute) Hypercalcemia (Acute) Supratherapeutic INR (Acute) - Physical Exam Vitals/I&O's: Vital Signs Temp Pulse Resp BP Pulse Ox 98.7 F 103 H 16 140/80 H 95 04/08/20 14:48 04/08/20 14:48 04/08/20 14:48 04/08/20 14:48 04/08/20 14:48 Oxygen Delivery Method Room Air Weight: 64.042 kg Body Mass Index (BMI) 24.5 Intake and Output for Last 24 Hours 04/06/20 04/07/20 04/08/20 23:59 23:59 23:59 Intake Total 1470 / 1470 1080 / 1080 720 / 720 Balance 1470 / 1470 1080 / 1080 720 / 720 Laboratory Results 04/04/20 : COVID-19 (NAN) Not Detected 04/08/20 05:20: Vitamin D 25-Hydroxy 33.5 04/08/20 05:20: Vit D 1,25-Dihydroxy Pending Current Medications Acetaminophen (Acetaminophen 500 Mg Tablet) 1,000 mg PO Q6H PRN PRN Reason: Pain Score 1-10 Last Admin: 04/07/20 21:32 Dose: 1,000 mg Documented by: Amlodipine Besylate (Amlodipine 5 Mg Tablet) 5 mg PO DAILY [facility] Last Admin: 04/08/20 05:07 Dose: 5 mg Documented by: Atorvastatin Calcium (Atorvastatin Calcium 10 Mg Tablet) 10 mg PO QHS [facility] Last Admin: 04/07/20 21:32 Dose: 10 mg Documented by: Bisacodyl (Bisacodyl 5 Mg Tablet) 10 mg PO DAILY PRN PRN Reason: Constipation Calamine/Phenol (Menthol/Lanolin/Calamine/Znox 113 Gm Tube) 1 applic TOPICAL 0600,2200 [facility]; Protocol Last Admin: 04/08/20 05:07 Dose: 1 applicatio Documented by: Calcium/Vitamin D (Calcium Carb/Vitamin D 1 Tablet Tablet) [facility] Last Admin: 04/08/20 08:54 Dose: 1 tablet Documented by: Cholecalciferol (Cholecalciferol (Vit D3) 1,000 Unit (25mcg)) 1,[facility] Last Admin: 04/08/20 08:54 Dose: 1,000 unit Documented by: Cyanocobalamin (Cyanocobalamin 500 Mcg Tablet) 1,000 mcg [facility] Last Admin: 04/08/20 08:54 Dose: 1,000 mcg Documented by: Fludrocortisone Acetate (Fludrocortisone Acetate 0.1 Mg Tablet) 0.1 mg PO DAILY@0800 [facility] Last Admin: 04/08/20 08:54 Dose: 0.1 mg Documented by: Fluticasone Propionate (Fluticasone 0.05% 1 [place] Nasal.Sry) 1 [facility] Gabapentin (Gabapentin 300 Mg Capsule) 300 mg [facility] Last Admin: 04/08/20 08:54 Dose: 300 mg Documented by: Gabapentin (Gabapentin 300 Mg Capsule) [facility] Last Admin: 04/07/20 21:32 Dose: 600 mg Documented by: Hydrocortisone (Hydrocortisone 10 Mg Tablet) 20 mg PO DAILY@0600 [facility] Last Admin: 04/08/20 05:07 Dose: 20 mg Documented by: Hydrocortisone (Hydrocortisone 10 Mg Tablet) 10 mg PO DAILY@1800 [facility] Last Admin: 04/07/20 18:04 Dose: 10 mg Documented by: Lactobacillus Acidophilus (Lactobacillus Acidophilus) 1 tablet PO DAILY [facility] Last Admin: 04/08/20 05:07 Dose: 1 tablet Documented by: Magnesium Hydroxide (Magnesium Hydroxide 30 Ml Udc) 30 ml PO DAILY PRN PRN Reason: Constipation Nitroglycerin (Nitroglycerin (Inpatient Use) 0.4 Mg Tab.Subl) 0.4 mg SUBLINGUAL Q5M PRN PRN Reason: CARDIAC/CHEST PAIN Polyethylene Glycol (Polyethylene Glycol 3350 17 Gm Packet) 17 gm PO DAILY PRN PRN Reason: Constipation Senna/Docusate Sodium (Senna/Docusate Sodium 1 Tablet) 2 tablet PO BID PRN PRN Reason: Constipation Sodium Chloride (0.9% Saline Lock 10 Ml Syringe) 10 - 40 ml IV UD PRN PRN Reason: SALINE FLUSH Tuberculin PPD (Tuberculin,Purif.Prot.Deriv. 50 Tu/Ml Vial) 5 tu ID X1 ONE Stop: 04/12/20 10:01 Warfarin Sodium (Warfarin 2.5 Mg Tablet) 2.5 mg PO DAILY@1700 [facility] Last Admin: 02/17/21 18:21 Dose: 2.5 mg Documented by: Discharge Diet: No Restrictions Discharge Activity: Return to Normal Activity, May Shower, Use Walker Weight Bearing Status: Weight bearing as tolerated Call your doctor if you observe: Fever of 101 or Higher, Inability to urinate, Inability to have a bowel movement, Shortness of breath, Chest pain, Uncontrolled pain Home Medications: Medications to take at Discharge L.acidoph,Paracasei, B.lactis [Probiotic] 1 ea PO DAILY 03/24/16 nitroglycerin 0.4 mg sublingual tablet 0.4 mg SUBLINGUAL Q5-15M PRN 05/21/18 Simvastatin 20 mg PO QHS 11/11/19 Cholecalciferol (Vitamin D3) [Vitamin D3] 1,000 unit PO DAILY 03/20/20 Cyanocobalamin (Vitamin B-12) [B-12] 1,000 mcg PO DAILY 03/20/20 Gabapentin 300 mg PO DAILY 03/20/20 Gabapentin 600 mg PO QHS 03/20/20 Denosumab [Prolia] 60 mg SQ .[id number] 04/02/20 Calcium Carbonate/Vitamin D3 [Calcium 500-Vit D3 200 Tablet] 1 ea PO DAILY 04/04/20 Dupilumab [Dupixent Pen] 300 mg SQ .[id number] #0 04/04/20 Acetaminophen [Tylenol] 1,000 mg PO Q6H PRN tab 04/08/20 Amlodipine [Norvasc] 5 mg PO DAILY #30 tab 04/08/20 Fludrocortisone Acetate [Florinef] 0.1 mg PO DAILY@0800 #30 tab 04/08/20 Fluticasone 0.05% [Flonase Nasal [place]] 1 spray NASAL QHS #1 nasal.sry 04/08/20 Hydrocortisone [Cortef] 10 mg PO DAILY@1800 #30 tab 04/08/20 Hydrocortisone [Cortef] 20 mg PO DAILY@0600 #60 tab 04/08/20 Menthol/Lanolin/Calamine/Znox [Calmoseptine Ointment] 1 applic TOPICAL 0600,2200 tube 04/08/20 Warfarin [Coumadin] 2.5 mg PO DAILY@1700 #30 tab 04/08/20 Following Prescriptions Were Given to Patient: Hydrocortisone [Cortef] 10 mg PO DAILY@1800 #30 tab Transmission Status: Pending to [employer] #30 Hydrocortisone [Cortef] 20 mg PO DAILY@0600 #60 tab Transmission Status: Pending to [employer] #30 Warfarin [Coumadin] 2.5 mg PO DAILY@1700 #30 tab Transmission Status: Pending to [employer] #30 Fluticasone 0.05% [Flonase Nasal [place]] 1 spray NASAL QHS #1 nasal.sry Transmission Status: Pending to [employer] #30 Fludrocortisone Acetate [Florinef] 0.1 mg PO DAILY@0800 #30 tab Transmission Status: Pending to [employer] #30 Amlodipine [Norvasc] 5 mg PO DAILY #30 tab Transmission Status: Pending to [employer] #30 Other Amb Orders: Prothrombin Time w/INR Time Frame: 2 Days, Facility: [facility], Location: Laboratory Primary Care Physician: Amos Fulton MD [Primary Care Provider] - Please follow up with your Primary Care Physician in: 1 week. Please Follow Up With: Amos Fulton MD When: 1 wk after DC from TCU Please Follow Up With: Torsten Vann MD When: 1 week after DC from TCU Disposition: Home with Home Health Minutes spent on discharge:: 35 Patient Condition:: Stable Medical Necessity - Tobacco Use Smoking Status: Never smoker Tobacco Use: Non-smoker Meaningful Use Info Meaningful Use Diagnoses (Choose all that apply): None applicable
[2020-04-08] MEDS: Fluticasone 0.05% 1 SPRAY NASAL.SRY NASAL (20:41)
[2020-04-08] MEDS: Hydrocortisone 10 MG Tablet PO (20:44)
[2020-04-08] MEDS: Atorvastatin Calcium 10 MG Tablet PO (20:44)
[2020-04-08] MEDS: Gabapentin 300 MG Capsule 600 MG PO (20:47)
[2020-04-09] MEDS: Hydrocortisone 10 MG Tablet 20 MG PO (05:38)
[2020-04-09] MEDS: amLODIPine 5 MG Tablet PO (05:38)
[2020-04-09] MEDS: Menthol/Lanolin/Calamine/Znox 113 GM Tube 1 APPLIC TOPICAL (05:41)
[2020-04-09 05:43] VITALS: BP 127/78; PULSE 93; RESP 18; TEMP 36.4; O2SAT 94
[2020-04-09 06:05] LABS: International Normalized Ratio 1.7; Prothrombin Time (Protime)PT. 19.2 SECONDS (11.7-14.9)
--- NOTE | 2020-04-09 08:34 | PCA ---
Assisted pt with AM care this morning, pt washed herself up in the bathroom rang to get out of bathroom, staff assisted pt with walking back to chair while walking patient began hunching over the sink and started shaking Lower extremedies pt was beginning to lower her self into a sitting position got a chair and sat pt down. I asked her if she was feeling dizzy/light-headed pt denied feeling either. she explained to me that this is exactly what happened when she ended up in the hospital in the first place. Got patient into her recliner by a stand pivot transfer.
[2020-04-09] MEDS: Cyanocobalamin 500 MCG Tablet 1000 MCG PO (09:21)
[2020-04-09] MEDS: Gabapentin 300 MG Capsule PO (09:21)
[2020-04-09] MEDS: Calcium Carb/Vitamin D 1 TABLET Tablet PO (09:21)
[2020-04-09] MEDS: Fludrocortisone Acetate 0.1 MG Tablet PO (09:21)
[2020-04-09 14:34] LABS: Calcium,Total 14.7 mg/dL (8.5-10.1)
--- NOTE | 2020-04-09 14:47 | NURSING ---
Dr Vann called reporting that calcium 14.7 & pt needs transferred off TCU to acute for treatment. dr reyes updated, new order to send pt to ER. pt and family will be updated.
[2020-04-09 14:58] VITALS: BP 110/77; PULSE 69; RESP 14; TEMP 36.1; O2SAT 96
--- NOTE | 2020-04-09 15:04 | NURSING ---
Addendum entered by Elizabeth Guzman 04/09/20 18:25: updated daughter @ [phone]ann suggesting oncology consult, does not feel its endocrine. Original Note: report called to ROSS Yee in ER at this time. tried & daughter Lisa & Fide but, no answer. left message to call [facility] for update.
--- NOTE | 2020-04-09 15:11 | CASEMGMT ---
Social Work Completed advanced directives with pt. Pt named, dtr Lisa Lopez, as HCPOA. Copies placed on chart. Piedad Noguera RADIOLOGIC THERAPIST SENIOR FORMULATION SCIENTIST
--- NOTE | 2020-04-09 18:26 | NURSING ---
pt observation on PCU.
--- NOTE | 2020-04-10 09:25 | CASEMGMT ---
Social Work BIMS and PHQ-9 completed for MDS assessment. Piedad Noguera ,[employer]IC[employer] INSURANCE AGENT BODY CORPORATE MANAGER
--- NOTE | 2020-04-10 13:50 | MDS.RN ---
staff assessment for pain completed for LUISITO 04/11/20.
--- NOTE | 2020-04-10 14:00 | NURSING ---
pt arrived to unit from PCU via WC. Reoriented to room. Denies needs, call light within reach.
[2020-04-10 14:21] VITALS: PULSE 96; RESP 16; O2SAT 97
[2020-04-10] MEDS: Hydrocortisone 10 MG Tablet PO (17:38)
[2020-04-10] MEDS: 0.9% Saline Lock 10 ML Syringe IV (19:39)
[2020-04-10] MEDS: 0.9% Normal Saline 1,000 ML 125 ML IV (19:51)
[2020-04-10] MEDS: Fluticasone 0.05% 1 SPRAY NASAL.SRY NASAL (21:42)
[2020-04-10] MEDS: Gabapentin 300 MG Capsule 600 MG PO (21:43)
[2020-04-10] MEDS: Atorvastatin Calcium 10 MG Tablet PO (21:43)
[2020-04-10] MEDS: Menthol/Lanolin/Calamine/Znox 113 GM Tube 1 APPLIC TOPICAL (21:47)
[2020-04-11] MEDS: Acetaminophen 500 MG Tablet 1000 MG PO (00:52)
[2020-04-11] MEDS: 0.9% Normal Saline 1,000 ML 125 ML IV (03:13)
[2020-04-11 06:11] VITALS: BP 101/68; PULSE 90; RESP 16; TEMP 36.8; O2SAT 98
[2020-04-11] MEDS: amLODIPine 5 MG Tablet PO (06:12)
[2020-04-11] MEDS: Hydrocortisone 10 MG Tablet 20 MG PO (06:12)
[2020-04-11] MEDS: Menthol/Lanolin/Calamine/Znox 113 GM Tube 1 APPLIC TOPICAL (06:14)
[2020-04-11 07:46] LABS: Anion Gap 4 (5-15); BUN 57 mg/dL (7-18); BUN/Creat Ratio 33.7 RATIO (10-20); Calcium,Total 11.2 mg/dL (8.5-10.1); Chloride 110 mmol/L (98-107); Creatinine, Serum 1.69 mg/dL (0.55-1.02); EST Glomerular Filtration Rate 31 mL/min (>60); Est Glom Filt Rate - Afr Amer 38 mL/min (>60); Glucose 76 mg/dL (74-106); Potassium 3.4 mmol/L (3.5-5.1); Sodium Level 144 mmol/L (136-145)
[2020-04-11] MEDS: Gabapentin 300 MG Capsule PO (08:11)
[2020-04-11] MEDS: Fludrocortisone Acetate 0.1 MG Tablet PO (08:12)
[2020-04-11] MEDS: Cyanocobalamin 500 MCG Tablet 1000 MCG PO (08:12)
[2020-04-11 08:24] LABS: International Normalized Ratio 1.7; Prothrombin Time (Protime)PT. 19.5 SECONDS (11.7-14.9)
--- NOTE | 2020-04-11 09:36 | NURSING ---
Pt Calcium level is 11.2 Dr. Carrizales updated and okay to D/C home today and follow up with Primary Doctor.
[2020-04-11 10:57] VITALS: BP 128/66; PULSE 91; RESP 16; TEMP 36.4; O2SAT 96
--- NOTE | 2020-04-16 09:59 | MDS.RN ---
Information for the mds was obtained from review of the clinical record, interview of resident, staff, and direct observation of resident's care.
== END 2020-04-11 10:30 | disposition home health service (06) | DRG 645 ==
PROVIDERS: Internal Medicine Endocrinology, Diabetes & Metabolism; Admitting Provider Family Medicine Geriatric Medicine; PCP Internal Medicine; Visit Provider Family Medicine Geriatric Medicine
DX: E27.1 Primary adrenocortical insufficiency (principal); R29.6 Repeated falls; I12.9 Hypertensive chronic kidney disease with stage 1 through stage 4 chronic kidney disease, or unspecified chronic kidney disease; N18.30 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, stage 3 unspecified; E78.5 Hyperlipidemia, unspecified; I25.2 Old myocardial infarction; E83.52 Hypercalcemia; R79.1 Abnormal coagulation profile; Z85.528 Personal history of other malignant neoplasm of kidney; Z86.718 Personal history of other venous thrombosis and embolism; Z86.711 Personal history of pulmonary embolism; Z90.5 Acquired absence of kidney; E53.8 Deficiency of other specified B group vitamins; I25.10 Atherosclerotic heart disease of native coronary artery without angina pectoris
CPT/HCPCS: 36415; 80048; 82306; 82310; 82652; 85025; 85610; 87635; 97110; 97116; 97162; 97166; 97530; 97535; 97802; J7030; A4216; U0003

== ENCOUNTER 2020-04-09 15:13 | Observation (INO) | payer MEDICARE, SELFPAY ==
[2020-04-04 11:54] VITALS: BMI 24.5
[2020-04-09] VITALS (8 sets, daily range): BP systolic 127–157; BP diastolic 66–102; PULSE 70–88; RESP 16–18; TEMP 36.4–36.9; O2SAT 94–96; BMI 26.5; BMI 26.2
--- NOTE | 2020-04-09 16:00 | EKG12_ITS ---
Test Reason : Blood Pressure : / mmHG Vent. Rate : 085 BPM Atrial Rate : 085 BPM P-R Int : 152 ms QRS Dur : 092 ms QT Int : 360 ms P-R-T Axes : 037 -22 -10 degrees QTc Int : 428 ms Normal sinus rhythm ST & T wave abnormality, consider anterior ischemia Abnormal ECG Confirmed by FIONA ZELAYA, LARISA ([id number]), general expeditor AMA PETERSEN ([id number]) on 04/13/2020 10:51:49 AM Referred By: KATHRYN Confirmed By:LARISA JAIMES MD
[2020-04-09 16:12] LABS: Absolute Lymphocyte Count 1.11 X10^3/uL (0.83-4.51); Basophil# 0.05 X10^3/uL; Basophil% 0.4 % (0-1); Eosinophils% 3.2 % (0-5); Hematocrit 38.9 % (37-47); Hemoglobin 12.7 g/dL (12.0-15.0); Lymphocyte # 1.11 X10^3/ul (4.0); Lymphocyte % 8.8 % (19-41); Mean Corp Hgb Conc 32.6 g/dL (32-36); Mean Corpuscular Volume 88.8 fL (81-99); Mean Platelet Vol. 11.3 fl (6.2-12.0); Monocyte% 7.2 % (0-10); NRBC Flagged by Analyzer 0 % (0-5); Neutrophil # 9.96 X10^3/uL (2.7-7.7); Neutrophil % 79.3 % (47-70); Platelet Count 266 K/mm3 (150-450); RBC Distribution Width CV 15.9 % (11.6-14.6); RBC Distribution Width SD 50.7 fl (35.1-43.9); Red Blood Count 4.38 M/mm3 (4.2-5.4); White Blood Count 12.6 K/mm3 (4.4-11.0)
[2020-04-09] MEDS: 0.9% Normal Saline 1,000 ML 250 ML IV (16:32)
[2020-04-09 16:34] LABS: ALB/GLOB Ratio 0.8 RATIO (0.9-2.4); AST(SGOT) 40 U/L (15-37); Alanine Aminotransfer ALT/SGPT 50 U/L (13-56); Albumin, Serum 2.6 g/dL (3.2-5.0); Alkaline Phosphatase 103 U/L (45-117); Anion Gap 5 (5-15); BUN 69 mg/dL (7-18); BUN/Creat Ratio 33.7 RATIO (10-20); Calcium,Total 14.4 mg/dL (8.5-10.1); Chloride 102 mmol/L (98-107); Creatinine, Serum 2.05 mg/dL (0.55-1.02); EST Glomerular Filtration Rate 25 mL/min (>60); Est Glom Filt Rate - Afr Amer 30 mL/min (>60); Estimated Creatinine Clearance 18.47 ml/min; Globulin 3.1 g/dL (2.2-4.2); Glucose 125 mg/dL (74-106); Potassium 3.1 mmol/L (3.5-5.1); Protein, Total 5.7 g/dL (6.4-8.2); Sodium Level 142 mmol/L (136-145)
--- NOTE | 2020-04-09 16:48 | ED.DCSUM_ITS ---
History of Present Illness Chief Complaint: Abn Labs Detail of Chief Complaint: From TCU for hypercalcemia Informant: Patient, SNF Onset: - - Abnormal calcium noted on laboratory results today. Context: Sudden Onset Timing: Waxes and wanes Quality: Calcium 14.7 Location: Blood work Current Severity: Moderate Maximum Severity: Moderate Worsened by: Unknown Relieved by: Unknown Associated Symptoms: Patient reports no symptoms. Narrative: She is a 74-year-old woman who was recently admitted for weakness and inability to ambulate. She was discharged to the TCU. She was sent to the emergency part because of a calcium of 14.7. She presently states she has no symptoms and is uncertain why she was sent to the emergency department. Patient was informed why she was sent to the emergency department. Review of systems is negative other than generalized weakness. Patient denies history of renal cancer. She states she had a mass which was removed and was benign. 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 Lives: Alone, - - Presents from TCU Smoking Status: Never smoker - Family History Maternal Family History: Family History (Last Reviewed 04/02/20 @ 17:11 by Jacinda Harrison NP, [employer] SCHO[employer] LIAISON OFFICER-C) Father CVA (cerebral vascular accident) Mother Myocardial infarction, Onset Age: 87 Family History: Reports: High Cholesterol, Heart Disease, Hypertension Paternal Family History: Family History (Last Reviewed 04/02/20 @ 17:11 by Jacinda Harrison NP, [employer] SCHO[employer] LIAISON OFFICER-C) Father CVA (cerebral vascular accident) Mother Myocardial infarction, Onset Age: 87 Family History: Reports: Stroke Sibling Family History: Family History (Last Reviewed 04/02/20 @ 17:11 by Jacinda Harrison NP, [employer]INAL HOME SCHOOL LIAISON OFFICER-C) Father CVA (cerebral vascular accident) Mother Myocardial infarction, Onset Age: 87 Family History: Reports: Renal Disease Review of Systems General: Denies: Chills, Fever, Malaise, Subjective Eyes: Denies: Visual changes - bilaterally, Blurred Vision - bilaterally ENT: Denies: Rhinorrhea, Sore throat Cardiovascular: Denies: Chest pain, Palpitations Respiratory: Denies: Dyspnea, Cough, Dyspnea on exertion Gastrointestinal: Denies: Abdominal pain, Nausea, Vomiting, Diarrhea, Constipation Genitourinary: Denies: Dysuria, Hematuria Musculoskeletal: Denies: Myalgias, Arthralgias, Neck pain, Back pain Skin: Denies: Rash, Wounds Neurological: Reports: Weakness. Denies: Headache, Parasthesia, Numbness Endocrine: Denies: Polyuria, Polydipsia Hematologic: Denies: Easy bruising, Easy bleeding Physical Exam Vital Signs/Narrative: Vital Signs Temp Pulse Resp BP Pulse Ox 04/09/20 15:15 97.6 F L 88 16 149/102 H 95 Inital Vital Signs reviewed: Yes General: Well nourished, Well developed, No Acute Distress Head: Normocephalic, Atraumatic Eyes: Perrl, EOMI ENT: Moist mucous membranes, No rhinorrhea Neck: Supple, Nontender Cardiovascular: Regular rate, Regular rhythm, No murmurs Respiratory: No distress, CTA bilaterally, Chest nontender Abdomen: Soft, Nontender, Nondistended, Normal bowel sounds Back: Nontender, Normal Inspection Extremities: Nontender, No edema Skin: Normal color, No rash. Negative for: Cyanosis, Diaphoresis Neurological: Alert, Oriented x3, Cranial nerves II-XII grossly intact, Normal Strength, Normal Sensation, Normal Gait - Unable Psychological: Normal affect, Normal Mood Diagnostic/Tx/Re-eval Laboratory Results 04/09/20 04/09/20 15:50 15:50 WBC 12.6 H RBC 4.38 Hgb 12.7 Hct 38.9 MCV 88.8 MCH 29.0 MCHC 32.6 RDW Std Deviation 50.7 H RDW Coeff of Slava 15.9 H Plt Count 266 MPV 11.3 Immature Gran % (Auto) 1.100 H Neut % (Auto) 79.3 H Lymph % (Auto) 8.8 L Robeson % (Auto) 7.2 Eos % (Auto) 3.2 Baso % (Auto) 0.4 Absolute Neuts (auto) 10.0 H Absolute Lymphs (auto) 1.11 Nucleated RBC % 0 Sodium 142 Potassium 3.1 L Chloride 102 Carbon Dioxide 35.0 H Anion Gap 5 BUN 69 H Creatinine 2.05 H Estim Creat Clear Calc 18.47 Est GFR (MDRD) Af Amer 30 L Est GFR (MDRD) Non-Af 25 L BUN/Creatinine Ratio 33.7 H Glucose 125 H Calcium 14.4 H* Total Bilirubin 0.60 AST 40 H ALT 50 Alkaline Phosphatase 103 Total Protein 5.7 L Albumin 2.6 L Globulin 3.1 Albumin/Globulin Ratio 0.8 L White count is elevated. Review of records indicates patient has had elevated white count in the past. Patient's creatinine on March 22 was approximately 1. Creatinine today is 2.05. BUN is increased as well to 69. Patient has had elevated calcium levels in the past. Based on my review of her prior lab results over the past month this was associated with increased prerenal azotemia. Suspect this is due to dehydration. Her BUN to creatinine ratio is 33:1. - EKG Initial EKG Interpretation: Sinus Rhythm - Normal sinus rhythm with ventricular 85. MO intervals 102 ms. QRS duration is 92 ms. QT duration is 360 ms. [place] is normal. There is abnormal ST segments/T waves in the anterior leads. We will need to compare to prior. - Medical Decision Making Will obtain comprehensive metabolic panel to assess albumin. We will need to determine etiology of her calcium. After review of prior records it is my suspicion this is due to dehydration. IV fluids were started. Because of the significant jump in her creatinine will contact hospitalist for IV hydration. The elevated CBC is nonspecific and as documented in the chart she has had elevated white count over the past several weeks. The EKG changes may be due to the hypercalcemia. Doubt patient has paraneop lastic syndrome,Hyperparathyroidism or metastasis to bone. Other causes would include sarcoidosis and excess vitamin D. Patient had recent vitamin D level and was unremarkable. ED Disposition - Plan for ED Patient: Diagnosis: Hypercalcemia, Acute prerenal azotemia, Elevated serum creatinine, Hypokalemia Referrals: Amos Fulton MD [Primary Care Provider] -
[2020-04-09] MEDS: 0.9% Normal Saline 1,000 ML 150 ML IV (19:30)
[2020-04-09 19:48] LABS: International Normalized Ratio 1.5; Prothrombin Time (Protime)PT. 17.1 SECONDS (11.7-14.9)
--- NOTE | 2020-04-09 20:07 | PCM.HP.STD ---
History of Present Illness Date of Admission: 04/09/20 Chief Complaint: Abnormal labs The patient is a 74 year old F with a. She is below presents to the hospital from TCU with abnormal labs. She has a known history of hypercalcemia and that was her previous admission, she has been worked up extensively as an outpatient and an inpatient without identifiable cause. She was discharged in stable condition to TCU with the understanding of discontinuing her calcium supplement however it appears that the calcium supplement was continued and she now presents with calcium of 14.4. She states that she feels fine other than feeling thirsty. Past Medical History Past Medical History (Chronic Problems): Chronic Problems (Last Updated 03/23/20 @ 07:58 by Jacquie Johnston) NSTEMI (non-ST elevated myocardial infarction) (Chronic) 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 (Chronic) History of kidney cancer (Chronic) [place] disease (Chronic) Recurrent deep vein thrombosis (DVT) (Chronic) History of pulmonary embolism (Chronic) Hyperlipidemia (Chronic) Orthostatic hypotension (Chronic) care home (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 (Chronic) Medical History: Medical History (Last Updated 03/23/20 @ 07:58 by Jacquie Johnston) [place] disease (Chronic) E27.1 History of non-ST elevation myocardial infarction (NSTEMI) (Resolved) Onset Date: 04/2009 I25.2 possible coronary embolism Recurrent deep vein thrombosis (DVT) (Chronic) I82.409 History of pulmonary embolism (Chronic) Z86.711 Hyperlipidemia (Chronic) E78.5 Orthostatic hypotension (Chronic) I95.1 Atopic dermatitis L20.9 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, stage 3 N18.3 Cystocele with rectocele N81.10, N81.6 size 4 ring with support History of DVT (deep vein thrombosis) Z86.718 Osteopenia determined by x-ray M85.80 Acute electrocardiogram changes R94.31 Closed head injury Onset Date: 03/20/20 S09.90XA Hypoglycemia Onset Date: 03/20/20 E16.2 Hypotension I95.9 Pyelonephritis N12 Essential (primary) hypertension (Ruled-out) I10 Allergies ciprofloxacin [From Cipro] Allergy (Verified 04/09/20 15:19) Rash Penicillins Allergy (Verified 04/09/20 15:19) Rash Home Medications: Ambulatory Orders Medication Instructions Recorded L.acidoph,Paracasei, B.lactis 1 ea PO DAILY 03/24/16 [Probiotic] nitroglycerin 0.4 mg sublingual 0.4 mg SUBLINGUAL Q5-15M PRN 05/21/18 tablet Cholecalciferol (Vitamin D3) 1,000 unit PO DAILY 03/20/20 [Vitamin D3] Cyanocobalamin (Vitamin B-12) 1,000 mcg PO DAILY 03/20/20 [B-12] Gabapentin 300 mg PO DAILY 03/20/20 Gabapentin 600 mg PO QHS 03/20/20 Denosumab [Prolia] 60 mg SQ .[id number] 04/02/20 Calcium Carbonate/Vitamin D3 1 ea PO DAILY 04/04/20 [Calcium 500-Vit D3 200 Tablet] Dupilumab [Dupixent Pen] 300 mg SQ .[id number] #0 04/04/20 Acetaminophen [Tylenol] 1,000 mg PO Q6H PRN tab 04/08/20 Amlodipine [Norvasc] 5 mg PO DAILY #30 tab 04/08/20 Fludrocortisone Acetate [Florinef] 0.1 mg PO DAILY@0800 #30 tab 04/08/20 Fluticasone 0.05% [Flonase Nasal 1 spray NASAL QHS #1 nasal.sry 04/08/20 [place]] Hydrocortisone [Cortef] 10 mg PO DAILY@1800 #30 tab 04/08/20 Hydrocortisone [Cortef] 20 mg PO DAILY@0600 #60 tab 04/08/20 Menthol/Lanolin/Calamine/Znox 1 applic TOPICAL 0600,2200 tube 04/08/20 [Calmoseptine Ointment] Warfarin [Coumadin] 2.5 mg PO DAILY@1700 #30 tab 04/08/20 Atorvastatin Calcium [Lipitor] 10 mg PO QHS 04/09/20 Surgical History: Surgical History (Last Reviewed 09/24/19 @ 14:[address] 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 Psychiatric History: No pertinent psych hx [employer] History: No pertinent [employer] history Lives: Alone, - - Presents from U Smoking Status: Never smoker Alcohol: None Drugs: None - *Family History Maternal Family History: Family History (Last Reviewed 04/02/20 @ 17:11 by Jacinda Harrison DIGITAL SPECIALIST, DIGITAL SPECIALIST-C) Father CVA (cerebral vascular accident) Mother Myocardial infarction, Onset Age: 87 History Items: High Cholesterol, Heart Disease, Hypertension Paternal Family History: Family History (Last Reviewed 04/02/20 @ 17:11 by Jacinda Harrison NP, DIGITAL SPECIALIST-C) Father CVA (cerebral vascular accident) Mother Myocardial infarction, Onset Age: 87 History Items: Stroke Sibling Family History: Family History (Last Reviewed 04/02/20 @ 17:11 by Jacinda Harrison NP, DIGITAL SPECIALIST-C) Father CVA (cerebral vascular accident) Mother Myocardial infarction, Onset Age: 87 History Items: Renal Disease Review of Systems Constitutional: Denies: Chills, Fever, Weight Change HEENT: Denies: Head Aches, Sinus Congestion, Sinus Drainage Cardiovascular: Denies: Chest Pain, Palpitations Respiratory: Denies: Cough, Shortness of breath at rest, Sputum production Gastrointestinal: Denies: Abdominal Pain, Nausea, Vomiting Genitourinary: Denies: Dysuria Musculoskeletal: Denies: Joint Pain, Joint Tenderness Skin: Denies: Rash, Wounds Neurological: Denies: Numbness, Tingling, Focal weakness Psychiatric: Denies: Anxiety, Depression Hematologic/ Lymphatic: Denies: Easy Bruising, Easy Bleeding VTE Information - Inpt Only VTE Present on Admission: No Patient Problems: Active and Suspected Problems (Last Updated 03/23/20 @ 07:58 by Jacquie Johnston) Debility (Acute) Frequent falls (Acute) Hypercalcemia (Acute) Acute prerenal azotemia (Acute) Elevated serum creatinine (Acute) Hypokalemia (Acute) - Physical Exam Vitals/I&O's: Vital Signs Temp Pulse Resp BP Pulse Ox 98.4 F 82 18 157/97 H 96 04/09/20 18:04 04/09/20 18:28 04/09/20 18:04 04/09/20 18:04 04/09/20 18:32 Oxygen Delivery Method Room Air Weight: 143 lb Body Mass Index (BMI) 26.2 Intake and Output for Last 24 Hours 04/07/20 04/08/20 04/09/20 23:59 23:59 23:59 Intake Total 575 / 575 Balance 575 / 575 General: Alert, Oriented x3, Cooperative, No apparent distress HEENT: Atraumatic, PERRLA, EOMI, Normocephalic Oral: Dry Mucosa Neck: Supple, No JVD Lungs: Clear to auscultation, Normal air movement, No rhonchi, No wheeze, No rales Cardiovascular: Regular rate, Regular Rhythm, Normal S1, Normal S2, No murmurs Abdomen: Soft, Non Tender, Non-Distended, No Hepato-splenomegaly Extremities: No edema, Capillary Refill Less than 3 Seconds Skin: No rashes, No breakdown Neurological: Neuro grossly intact, Sensory exam intact to light touch and pain Psych/Mental Status: Normal Affect, Appropriate Laboratory Results 04/09/20 15:50: WBC 12.6 H, RBC 4.38, Hgb 12.7, Hct 38.9, MCV 88.8, MCH 29.0, MCHC 32.6, RDW Std Deviation 50.7 H, RDW Coeff of Slava 15.9 H, Plt Count 266, MPV 11.3, Immature Gran % (Auto) 1.100 H, Neut % (Auto) 79.3 H, Lymph % (Auto) 8.8 L, [place] % (Auto) 7.2, Eos % (Auto) 3.2, Baso % (Auto) 0.4, Absolute Neuts (auto) 10.0 H, Absolute Lymphs (auto) 1.11, Nucleated RBC % 0 04/09/20 15:50: Sodium 142, Potassium 3.1 L, Chloride 102, Carbon Dioxide 35.0 H, Anion Gap 5, BUN 69 H, Creatinine 2.05 H, Estim Creat Clear Calc 18.47, Est GFR (MDRD) Af Amer 30 L, Est GFR (MDRD) Non-Af 25 L, BUN/Creatinine Ratio 33.7 H, Glucose 125 H, Calcium 14.4 H*, Total Bilirubin 0.60, AST 40 H, ALT 50, Alkaline Phosphatase 103, Total Protein 5.7 L, Albumin 2.6 L, Globulin 3.1, Albumin/Globulin Ratio 0.8 L 04/09/20 15:50: PT 17.1 H, INR 1.5 Current Medications Acetaminophen (Acetaminophen 325 Mg Tablet) 650 mg PO Q6H PRN PRN PRN Reason: Pain Score 1-10/Temp > 100.7 F Amlodipine Besylate (Amlodipine 5 Mg Tablet) 5 mg PO DAILY [facility] Atorvastatin Calcium (Atorvastatin Calcium 10 Mg Tablet) 10 mg PO QHS [facility] Fludrocortisone Acetate (Fludrocortisone Acetate 0.1 Mg Tablet) 0.1 mg PO DAILY@0800 [facility] Fluticasone Propionate (Fluticasone 0.05% 1 [place] Nasal.Sry) 1 spray NASAL QHS [facility] Gabapentin (Gabapentin 300 Mg Capsule) 300 mg PO DAILY [facility] Gabapentin (Gabapentin 300 Mg Capsule) 600 mg PO QHS [facility] Hydrocortisone (Hydrocortisone 10 Mg Tablet) 10 mg PO DAILY@1800 [facility] Hydrocortisone (Hydrocortisone 10 Mg Tablet) 20 mg PO DAILY@0600 [facility] Sodium Chloride () 1,000 mls @ 125 mls/hr IV .Q8H [facility] Melatonin (Melatonin 3 Mg Tablet) 3 mg PO QHS PRN PRN PRN Reason: INSOMNIA Non-Formulary Medication (Cholecalciferol (Vitamin D3) [Vitamin D3]) 1,000 unit PO DAILY [facility] Non-Formulary Medication (Cyanocobalamin (Vitamin B-12) [B-12]) 1,000 mcg PO DAILY [facility] Ondansetron HCl (Ondansetron 4 Mg/2 Ml Vial) 4 mg IV Q8H PRN PRN PRN Reason: NAUSEA/VOMITING Assessment/Plan All Active Problems (Last Updated 03/23/20 @ 07:58 by Jacquie Johnston) Debility (Acute) Weakness (Acute) Frequent falls (Acute) Hypotensive episode (Acute) Hypercalcemia (Acute) Supratherapeutic INR (Acute) Acute prerenal azotemia (Acute) Elevated serum creatinine (Acute) Hypokalemia (Acute) History of non-ST elevation myocardial infarction (NSTEMI) (Resolved 04/2009) Pyelonephritis, acute (Resolved) Sepsis (Resolved) Essential (primary) hypertension (Ruled-out) 1. 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 HTN/HLD -Blood pressure is stable -Continue with Norvasc -Continue with Lipitor 3. History of PE and DVT -On her previous admission INR was up to 8, currently 1.5 -Restart Coumadin and monitor DVT: Coumadin OBSV E&M: [id number] Initial observation care L2
[2020-04-09] MEDS: Fluticasone 0.05% 1 SPRAY NASAL.SRY NASAL (22:46)
[2020-04-09] MEDS: Atorvastatin Calcium 10 MG Tablet PO (22:47)
[2020-04-09] MEDS: Gabapentin 600 MG Tablet PO (22:47)
[2020-04-09] MEDS: Potassium Chloride Oral Tablet 20 MEQ 40 MEQ PO (22:50)
[2020-04-10] MEDS: 0.9% Normal Saline 1,000 ML 150 ML IV ×2 (01:37→08:24)
[2020-04-10 06:00] VITALS: BP 99/63; PULSE 99; RESP 18; TEMP 36.6; O2SAT 95
[2020-04-10 06:15] LABS: Absolute Lymphocyte Count 1.21 X10^3/uL (0.83-4.51); Absolute Neutrophil Count 7.8 X10^3/uL (2.0-7.7); Basophil# 0.03 X10^3/uL; Basophil% 0.3 % (0-1); Eosinophils% 5.8 % (0-5); Hematocrit 35.3 % (37-47); Lymphocyte # 1.21 X10^3/ul (4.0); Lymphocyte % 11.7 % (19-41); Mean Corp Hgb Conc 31.2 g/dL (32-36); Mean Corpuscular Hgb 28.5 pg (27.0-32.0); Mean Corpuscular Volume 91.5 fL (81-99); Mean Platelet Vol. 10.8 fl (6.2-12.0); Monocyte# 0.62 X10^3/uL; NRBC Flagged by Analyzer 0 % (0-5); Neutrophil # 7.78 X10^3/uL (2.7-7.7); Neutrophil % 75.3 % (47-70); Platelet Count 230 K/mm3 (150-450); RBC Distribution Width CV 15.9 % (11.6-14.6); RBC Distribution Width SD 51.6 fl (35.1-43.9); Red Blood Count 3.86 M/mm3 (4.2-5.4); White Blood Count 10.3 K/mm3 (4.4-11.0)
[2020-04-10 06:29] LABS: Mucous, Urine 0 SEEN /hpf (<or=2+)
[2020-04-10 06:31] LABS: Color, Urine Yellow (Yellow); Glucose, Dipstick Normal (Normal); Ketone-Dipstick Negative (Negative); Leukocyte Esterase-Dipstick 500 /ul (Negative); Nitrite-Dipstick Negative (Negative); Occult Blood-Urine 150 /ul (Negative); Protein-Dipstick Negative (Negative); Specific Gravity, Urine 1.015 (1.002-1.030); Urine Bilirubin Dipstick Negative (Negative); Urine Clarity Clear (Clear); Urine Urobilinogen Normal (Normal); Urine pH 6.5 (5.0 - 8.0)
[2020-04-10 06:34] LABS: International Normalized Ratio 1.8; Prothrombin Time (Protime)PT. 20.6 SECONDS (11.7-14.9)
[2020-04-10 06:36] LABS: Bacteria 2+ /hpf (None Seen); Red Blood Cells-Urine 5-10 SEEN /hpf (0-5); Squamous Epithelial Cells - UA 0-5 SEEN /hpf (5-10); White Blood Cells 10-25 SEEN /hpf (0-5)
[2020-04-10] MEDS: Hydrocortisone 10 MG Tablet 20 MG PO (06:48)
[2020-04-10 06:50] LABS: Anion Gap 4 (5-15); BUN 62 mg/dL (7-18); BUN/Creat Ratio 35.4 RATIO (10-20); Calcium,Total 12.1 mg/dL (8.5-10.1); Chloride 110 mmol/L (98-107); Creatinine, Serum 1.75 mg/dL (0.55-1.02); EST Glomerular Filtration Rate 30 mL/min (>60); Est Glom Filt Rate - Afr Amer 36 mL/min (>60); Estimated Creatinine Clearance 21.63 ml/min; Glucose 81 mg/dL (74-106); Magnesium 1.8 mg/dL (1.6-2.6); Potassium 3.3 mmol/L (3.5-5.1); Sodium Level 145 mmol/L (136-145)
[2020-04-10 06:59] VITALS: PULSE 102
[2020-04-10] MEDS: Fludrocortisone Acetate 0.1 MG Tablet PO (08:25)
[2020-04-10] MEDS: Gabapentin 300 MG Capsule PO (08:25)
--- NOTE | 2020-04-10 09:17 | PCM.TXEXTCAR ---
- Diet 04/09/20 18:42 Diet: Cardiac - Heart Healthy Food consistency:: Regular Liquid Consistency:: Regular/Thin Is pt able to select menu?: Yes - Routine Orders/Code Status Routine Lab Work: BMP - Therapies Physical Therapy: Eval and Treat 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 Therapy: Eval and Treat - Allergies/Procedures Done in Hospital Allergies/Adverse Reactions: Allergies ciprofloxacin [From Cipro] Allergy (Verified 04/10/20 08:29) Rash Penicillins Allergy (Verified 04/10/20 08:29) Rash Procedures: None - Type of Care/Length of Stay Estimated LOS: Convalescent Care Less Than 30 days Type of Care Needed: Skilled Rehab Potential: Good Prognosis: Good - Additional Orders/Day of Discharge Additional Orders: Do not resume any calcium products. If calcium remains little bit high would recommend IV fluid bolus in the TCU. Day of Discharge: 04/10/20 - Follow Up Care Primary Care Physician: Amos Fulton MD [Primary Care Provider] - Please follow up with your Primary Care Physician in: 3-5 days
[2020-04-10] MEDS: Potassium Chloride Oral Tablet 20 MEQ 60 MEQ PO (10:47)
[2020-04-10] MEDS: Cyanocobalamin 500 MCG Tablet 1000 MCG PO (10:51)
[2020-04-10 10:52] VITALS: BP 76/49; PULSE 104; RESP 16; O2SAT 95
--- NOTE | 2020-04-10 11:23 | PHA.DC.MR ---
Pharmacy Service has performed discharge medication reconciliation for this patient. The patient's discharge medication list was reviewed for discrepancies and discrepancies were resolved. Home Medications L.acidoph,Paracasei, B.lactis [Probiotic] 1 ea PO DAILY 03/24/16 nitroglycerin 0.4 mg sublingual tablet 0.4 mg SUBLINGUAL Q5-15M PRN 05/21/18 Cholecalciferol (Vitamin D3) [Vitamin D3] 1,000 unit PO DAILY 03/20/20 Cyanocobalamin (Vitamin B-12) [B-12] 1,000 mcg PO DAILY 03/20/20 Gabapentin 300 mg PO DAILY 03/20/20 Gabapentin 600 mg PO QHS 03/20/20 Denosumab [Prolia] 60 mg SQ .[id number] 04/02/20 Dupilumab [Dupixent Pen] 300 mg SQ .[id number] #0 04/04/20 Acetaminophen [Tylenol] 1,000 mg PO Q6H PRN tab 04/08/20 Amlodipine [Norvasc] 5 mg PO DAILY #30 tab 04/08/20 Fludrocortisone Acetate [Florinef] 0.1 mg PO DAILY@0800 #30 tab 04/08/20 Fluticasone 0.05% [Flonase Nasal [place]] 1 spray NASAL QHS #1 nasal.sry 04/08/20 Hydrocortisone [Cortef] 10 mg PO DAILY@1800 #30 tab 04/08/20 Hydrocortisone [Cortef] 20 mg PO DAILY@0600 #60 tab 04/08/20 Menthol/Lanolin/Calamine/Znox [Calmoseptine Ointment] 1 applic TOPICAL 0600,2200 tube 04/08/20 Warfarin [Coumadin] 2.5 mg PO DAILY@1700 #30 tab 04/08/20 Atorvastatin Calcium [Lipitor] 10 mg PO QHS 04/09/20
[2020-04-10 11:29] VITALS: BP 94/64
[2020-04-10 12:20] VITALS: BP 97/63; PULSE 94; RESP 16; TEMP 36.9; O2SAT 94
--- NOTE | 2020-04-10 13:05 | PCM.DC.SUM ---
Discharge Date and Diagnosis - Problem List Patient Problems: Active and Suspected Problems (Last Reviewed 04/10/20 @ 08:28 by Jacquie Johnston) Frequent falls (Acute) Date of Admission: 04/09/20 Date of Discharge: 04/10/20 - Primary Discharge Diagnosis Acute Problems: Active Problems (Last Reviewed 04/10/20 @ 08:28 by Jacquie Johnston) Frequent falls (Acute) - Secondary Discharge Diagnosis Chronic Problems: Chronic Problems (Last Reviewed 04/10/20 @ 08:28 by Jacquie Johnston) Orthostatic hypotension (Chronic) Recurrent deep vein thrombosis (DVT) (Chronic) History of pulmonary embolism (Chronic) Hyperlipidemia (Chronic) 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 (Chronic) [place] disease (Chronic) History of kidney cancer (Chronic) penitentiary (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 (Chronic) Hospital Course and Treatment Operations: None Procedures: None Summary of Care Provided: Per HPI: The patient is a 74 year old F with a. She is below presents to the hospital from TCU with abnormal labs. She has a known history of hypercalcemia and that was her previous admission, she has been worked up extensively as an outpatient and an inpatient without identifiable cause. She was discharged in stable condition to TCU with the understanding of discontinuing her calcium supplement however it appears that the calcium supplement was continued and she now presents with calcium of 14.4. She states that she feels fine other than feeling thirsty. Hospital Course: 1. Chronic hypercalcemia/ANGELA on CKD 3/[place]'s [id number]-old female who was recently admitted for hypercalcemia and ANGELA was treated and discharged to the transitional care unit. Unfortunately there she was continued on her calcium supplementation and represent to the hospital with polydipsia and hypercalcemia to 14.4. Per evaluation previous notes and per the patient herself, she has been extensively worked up as an outpatient for her hypercalcemia. She was started on aggressive IV fluid hydration and she is down to 12.2 on her calcium. I discussed with her and documented extensively that she is to not be continued on calcium supplementation on discharge. Renal function improved from 2.05 to 1.75 on the day of discharge, would recommend following up with a [facility] transitional care unit to monitor both her calcium and her kidney function. 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 Would recommend discontinuing, monitor for now. I discussed with her the plan for discharge today back to the transitional care unit and she expressed understanding of the risk and benefits of going to SNF. 2. Asymptomatic bacteriuria-she denies any frequency or dysuria however her UA yesterday demonstrated a leukocyte esterase of 500 with 2+ bacteria. She is afebrile and leukocytosis resolved with IV hydration without any antibiotics therefore will monitor for now but will obtain a urine culture. 3. Hypertension, hyperlipidemia, history of PE and DVT are all chronic medical conditions which complicate her care. Her home medications were continued where appropriate. Her Coumadin was restarted as her INR on admission was 1.5 and today was 1.8. Continue to monitor at the transitional care unit on her previous admission her INR did jump to over 8 so would recommend monitoring closely. Patient Problems: Active and Suspected Problems (Last Reviewed 04/10/20 @ 08:28 by Jacquie Johnston) Frequent falls (Acute) - Physical Exam Vitals/I&O's: Vital Signs Temp Pulse Resp BP Pulse Ox 98.4 F 94 16 97/63 94 04/10/20 12:20 04/10/20 12:20 04/10/20 12:20 04/10/20 12:20 04/10/20 12:20 Oxygen Delivery Method Room Air Weight: 143 lb Body Mass Index (BMI) 26.2 Intake and Output for Last 24 Hours 04/08/20 04/09/20 04/10/20 23:59 23:59 23:59 Intake Total 575 / 935 2637.5 / 2637.5 Output Total 1000 / 1000 Balance 575 / 935 1637.5 / 1637.5 General: Alert, Oriented x3, Cooperative, No apparent distress HEENT: Atraumatic, PERRLA, EOMI, Normocephalic Oral: Dry Mucosa Neck: Supple, No JVD Lungs: Clear to auscultation, Normal air movement, No rhonchi, No wheeze, No rales Cardiovascular: Regular rate, Regular Rhythm, Normal S1, Normal S2, No murmurs Abdomen: Soft, Non Tender, Non-Distended, No Hepato-splenomegaly Extremities: No edema, Capillary Refill Less than 3 Seconds Skin: No rashes, No breakdown Neurological: Neuro grossly intact, Sensory exam intact to light touch and pain Psych/Mental Status: Normal Affect, Appropriate Laboratory Results 04/09/20 15:50: WBC 12.6 H, RBC 4.38, Hgb 12.7, Hct 38.9, MCV 88.8, MCH 29.0, MCHC 32.6, RDW Std Deviation 50.7 H, RDW Coeff of Slava 15.9 H, Plt Count 266, MPV 11.3, Immature Gran % (Auto) 1.100 H, Neut % (Auto) 79.3 H, Lymph % (Auto) 8.8 L, [place] % (Auto) 7.2, Eos % (Auto) 3.2, Baso % (Auto) 0.4, Absolute Neuts (auto) 10.0 H, Absolute Lymphs (auto) 1.11, Nucleated RBC % 0 04/09/20 15:50: Sodium 142, Potassium 3.1 L, Chloride 102, Carbon Dioxide 35.0 H, Anion Gap 5, BUN 69 H, Creatinine 2.05 H, Estim Creat Clear Calc 18.47, Est GFR (MDRD) Af Amer 30 L, Est GFR (MDRD) Non-Af 25 L, BUN/Creatinine Ratio 33.7 H, Glucose 125 H, Calcium 14.4 H*, Total Bilirubin 0.60, AST 40 H, ALT 50, Alkaline Phosphatase 103, Total Protein 5.7 L, Albumin 2.6 L, Globulin 3.1, Albumin/Globulin Ratio 0.8 L 04/09/20 15:50: PT 17.1 H, INR 1.5 04/10/20 06:02: WBC 10.3, RBC 3.86 L, Hgb 11.0 L, Hct 35.3 L, MCV 91.5, MCH 28.5, MCHC 31.2 L, RDW Std Deviation 51.6 H, RDW Coeff of Slava 15.9 H, Plt Count 230, MPV 10.8, Immature Gran % (Auto) 0.900, Neut % (Auto) 75.3 H, Lymph % (Auto) 11.7 L, [place] % (Auto) 6.0, Eos % (Auto) 5.8 H, Baso % (Auto) 0.3, Absolute Neuts (auto) 7.8 H, Absolute Lymphs (auto) 1.21, Nucleated RBC % 0 04/10/20 06:02: PT 20.6 H, INR 1.8 04/10/20 06:02: Sodium 145, Potassium 3.3 L, Chloride 110 H, Carbon Dioxide 31.0, Anion Gap 4 L, BUN 62 H, Creatinine 1.75 H, Estim Creat Clear Calc 21.63, Est GFR (MDRD) Af Amer 36 L, Est GFR (MDRD) Non-Af 30 L, BUN/Creatinine Ratio 35.4 H, Glucose 81, Calcium 12.1 H, Magnesium 1.8 04/10/20 06:20: Urine Color Yellow, Urine Clarity Clear, Urine pH 6.5, Ur Specific [place] 1.015, Urine Protein Negative, Urine Glucose (UA) Normal, Urine Ketones Negative, Urine Occult Blood 150 H, Urine Nitrite Negative, Urine Bilirubin Negative, Urine Urobilinogen Normal, Ur Leukocyte Esterase 500 H, Urine RBC 5-10 SEEN, Urine WBC 10-25 SEEN, Ur Squamous Epith Cells 0-5 SEEN, Urine Bacteria 2+, Urine Mucus 0 SEEN Current Medications Acetaminophen (Acetaminophen 325 Mg Tablet) 650 mg PO Q6H PRN PRN PRN Reason: Pain Score 1-10/Temp > 100.7 F Amlodipine Besylate (Amlodipine 5 Mg Tablet) 5 mg PO DAILY [facility] Last Admin: 04/10/20 10:51 Dose: Not Given Documented by: Atorvastatin Calcium (Atorvastatin Calcium 10 Mg Tablet) 10 mg PO QHS [facility] Last Admin: 04/09/20 22:47 Dose: 10 mg Documented by: Cholecalciferol (Cholecalciferol (Vit D3) 1,000 Unit (25mcg)) 1,000 unit PO DAILY [facility] Last Admin: 04/10/20 10:51 Dose: 1,000 unit Documented by: Cyanocobalamin (Cyanocobalamin 500 Mcg Tablet) 1,000 mcg PO DAILY [facility] Last Admin: 04/10/20 10:51 Dose: 1,000 mcg Documented by: Fludrocortisone Acetate (Fludrocortisone Acetate 0.1 Mg Tablet) 0.1 mg PO DAILY@0800 [facility] Last Admin: 04/10/20 08:25 Dose: 0.1 mg Documented by: Fluticasone Propionate (Fluticasone 0.05% 1 [place] Nasal.Sry) 1 spray NASAL QHS [facility] Last Admin: 04/09/20 22:46 Dose: 1 spray Documented by: Gabapentin ([facility] 300 Mg [facility]apsule) [facility] Last Admin: 04/10/20 08:25 Dose: 300 mg Documented by: Gabapentin (Gabapentin 600 Mg Tablet) 600 mg PO QHS [facility] Last Admin: 04/09/20 22:47 Dose: 600 mg Documented by: Hydrocortisone (Hydrocortisone 10 Mg Tablet) 10 mg PO DAILY@1800 [facility] Hydrocortisone (Hydrocortisone 10 Mg Tablet) 20 mg PO DAILY@0600 [facility] Last Admin: 04/10/20 06:48 Dose: 20 mg Documented by: Sodium Chloride () 1,000 mls @ 150 mls/hr IV .Q6H40M [facility] Last Admin: 04/10/20 08:24 Dose: 150 mls/hr Documented by: Melatonin (Melatonin 3 Mg Tablet) 3 mg PO QHS PRN PRN PRN Reason: INSOMNIA Ondansetron HCl (Ondansetron 4 Mg/2 Ml Vial) 4 mg IV Q8H PRN PRN PRN Reason: NAUSEA/VOMITING Warfarin Sodium (Warfarin 2.5 Mg Tablet) 2.5 mg PO DAILY@1700 [facility] Home Medications: Medications to take at Discharge L.acidoph,Paracasei, B.lactis [Probiotic] 1 ea PO DAILY 03/24/16 nitroglycerin 0.4 mg sublingual tablet 0.4 mg SUBLINGUAL Q5-15M PRN 05/21/18 Cholecalciferol (Vitamin D3) [Vitamin D3] 1,000 unit PO DAILY 03/20/20 Cyanocobalamin (Vitamin B-12) [B-12] 1,000 mcg PO DAILY 03/20/20 Gabapentin 300 mg PO DAILY 03/20/20 Gabapentin 600 mg PO QHS 03/20/20 Denosumab [Prolia] 60 mg SQ .[id number] 04/02/20 Dupilumab [Dupixent Pen] 300 mg SQ .[id number] #0 04/04/20 Acetaminophen [Tylenol] 1,000 mg PO Q6H PRN tab 04/08/20 Amlodipine [Norvasc] 5 mg PO DAILY #30 tab 04/08/20 Fludrocortisone Acetate [Florinef] 0.1 mg PO DAILY@0800 #30 tab 04/08/20 Fluticasone 0.05% [Flonase Nasal [place]] 1 spray NASAL QHS #1 nasal.sry 02/17/21 Hydrocortisone [Cortef] 10 mg PO DAILY@1800 #30 tab 04/08/20 Hydrocortisone [Cortef] 20 mg PO DAILY@0600 #60 tab 04/08/20 Menthol/Lanolin/Calamine/Znox [Calmoseptine Ointment] 1 applic TOPICAL 0600,2200 tube 04/08/20 Warfarin [Coumadin] 2.5 mg PO DAILY@1700 #30 tab 04/08/20 Atorvastatin Calcium [Lipitor] 10 mg PO QHS 04/09/20 Primary Care Physician: Amos Fulton MD [Primary Care Provider] - Please follow up with your Primary Care Physician in: 3-5 days Disposition: Long Term facility Minutes spent on discharge:: 35 Patient Condition:: Stable Meaningful Use Info Meaningful Use Diagnoses (Choose all that apply): None applicable OBSV E&M: 18014 Observation care discharge
--- NOTE | 2020-04-10 13:35 | CASEMGMT ---
Patient is from TCU. Spoke with patient and her daughter and plan is to return to TCU at d/c. They declined need for SNF list. SW let them know she will be headed back to TCU today. They were aware and fine with the plan. Orders were copied. Plan: d/c to [facility] TCU under skilled level of care. Chel CORBETT MSW
== END 2020-04-10 13:52 | disposition skilled nursing facility (03) ==
LOC: ED 16:58 → PCU 04-10 07:11
PROVIDERS: Admitting Provider Family Medicine; Emergency Provider Emergency Medicine; PCP Internal Medicine; Visit Provider Family Medicine
DX: E83.52 Hypercalcemia (principal); E78.5 Hyperlipidemia, unspecified; I12.9 Hypertensive chronic kidney disease with stage 1 through stage 4 chronic kidney disease, or unspecified chronic kidney disease; E27.1 Primary adrenocortical insufficiency; R29.6 Repeated falls; N18.30 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, stage 3 unspecified; I25.2 Old myocardial infarction; Z86.718 Personal history of other venous thrombosis and embolism; Z86.711 Personal history of pulmonary embolism; Z85.528 Personal history of other malignant neoplasm of kidney; Z79.01 Long term (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; Z79.899 Other long term (current) drug therapy; E87.6 Hypokalemia; R79.89 Other specified abnormal findings of blood chemistry
CPT/HCPCS: 36415; 80048; 80053; 81001; 83735; 85025; 85610; 87077; 87086; 87088; 93005; 96360; 96361; 97162; 97166; 99218; 99285; J7030; A4216; G0378

== ENCOUNTER 2020-04-14 14:43 | Outpatient (RCR) | payer MEDICARE, SELFPAY ==
[2020-04-09 18:05] VITALS: BMI 26.2
[2020-04-14 15:12] LABS: International Normalized Ratio 1.9; Prothrombin Time (Protime)PT. 20.9 SECONDS (11.7-14.9)
[2020-04-14 15:21] LABS: Anion Gap 6 (5-15); BUN 49 mg/dL (7-18); BUN/Creat Ratio 26.1 RATIO (10-20); Calcium,Total 14.3 mg/dL (8.5-10.1); Chloride 101 mmol/L (98-107); Creatinine, Serum 1.88 mg/dL (0.55-1.02); EST Glomerular Filtration Rate 28 mL/min (>60); Est Glom Filt Rate - Afr Amer 33 mL/min (>60); Glucose 169 mg/dL (74-106); Potassium 3.4 mmol/L (3.5-5.1); Sodium Level 140 mmol/L (136-145)
== END 2020-04-14 18:00 | disposition home or self-care (01) ==
LOC: HHLAB 14:43
PROVIDERS: PCP Internal Medicine; Referring Provider Internal Medicine; Visit Provider Internal Medicine
DX: E83.52 Hypercalcemia (principal)
CPT/HCPCS: 80048; 85610

== ENCOUNTER 2020-04-14 17:15 | Observation (INO) | payer MEDICARE, SELFPAY ==
[2020-04-09 18:05] VITALS: BMI 26.2
[2020-04-14 17:16] VITALS: BP 114/67; PULSE 105; RESP 18; TEMP 36.3; O2SAT 95; BMI 26.8
[2020-04-14 17:19] VITALS: BP 114/67; PULSE 105; RESP 18; TEMP 36.3; O2SAT 95
--- NOTE | 2020-04-14 17:36 | EKG12_ITS ---
Test Reason : ABNORMAL LABS Blood Pressure : / mmHG Vent. Rate : 092 BPM Atrial Rate : 092 BPM P-R Int : 158 ms QRS Dur : 098 ms QT Int : 376 ms P-R-T Axes : 040 -22 -03 degrees QTc Int : 464 ms Sinus rhythm with frequent Premature ventricular complexes Possible Left atrial enlargement ST & T wave abnormality, consider anterior ischemia Abnormal ECG Confirmed by FIONA ZELAYA, LARISA ([id number]), editor in chief AMA PETERSEN ([id number]) on 04/15/2020 12:52:50 PM Referred By: JAY Confirmed By:LARISA JAIMES MD
--- NOTE | 2020-04-14 17:39 | ED.DCSUM_ITS ---
History of Present Illness Chief Complaint: Abn Labs Informant: Patient, Family Narrative: Patient sent back to the ED by PCP secondary to high calcium levels. Patient was recently admitted to the TCU as well as the hospital. They believe she had an addisonian crisis and calcium was elevated. She was discharged here last weekend. Repeat labs today revealed calcium elevated again at 14.3. Patient states overall she feels pretty well. She does report fatigue and increased thirst. 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 - Family History Maternal Family History: Family History (Last Reviewed 04/10/20 @ 08:28 by Jacquie Johnston) Father CVA (cerebral vascular accident) Mother Myocardial infarction, Onset Age: 87 Family History: Reports: High Cholesterol, Heart Disease, Hypertension Paternal Family History: Family History (Last Reviewed 04/10/20 @ 08:28 by Jacquie Johnston) Father CVA (cerebral vascular accident) Mother Myocardial infarction, Onset Age: 87 Family History: Reports: Stroke Sibling Family History: Family History (Last Reviewed 04/10/20 @ 08:28 by Jacquie Johnston) Father CVA (cerebral vascular accident) Mother Myocardial infarction, Onset Age: 87 Family History: Reports: Renal Disease Review of Systems General: Denies: Chills, Fever Eyes: Denies: Visual changes - bilaterally ENT: Denies: Bilateral ear pain Cardiovascular: Denies: Chest pain Respiratory: Denies: Dyspnea, Cough Gastrointestinal: Denies: Abdominal pain, Vomiting, Diarrhea Genitourinary: Denies: Dysuria Musculoskeletal: Denies: Swelling, Extremity Pain Skin: Denies: Rash Neurological: Reports: Weakness - Generalized weakness. Denies: Headache Hematologic: Denies: Easy bruising, Easy bleeding Allergy: Denies: Uticaria Physical Exam Vital Signs/Narrative: Vital Signs Temp Pulse Resp BP Pulse Ox 04/14/20 17:19 97.3 F L 105 H 18 114/67 95 04/14/20 17:16 97.3 F L 105 H 18 114/67 95 Inital Vital Signs reviewed: Yes General: Well nourished, Well developed Head: Normocephalic ENT: Moist mucous membranes Neck: Supple Cardiovascular: Regular rate, Regular rhythm Respiratory: No distress, CTA bilaterally Abdomen: Soft, Nontender, Normal bowel sounds Back: Nontender Extremities: Nontender, Edema - 3+ bilateral lower extremity edema. Skin: Normal color Neurological: Alert, Oriented x3, - - No focal neurologic deficits. Psychological: Normal affect Diagnostic/Tx/Re-eval Laboratory Results 04/14/20 04/14/20 18:08 18:08 WBC 8.6 RBC 3.88 L Hgb 11.3 L Hct 35.6 L MCV 91.8 MCH 29.1 MCHC 31.7 L RDW Std Deviation 51.5 H RDW Coeff of Slava 15.5 H Plt Count 238 MPV 11.4 Immature Gran % (Auto) 1.100 H Neut % (Auto) 73.0 H Lymph % (Auto) 11.4 L Wake % (Auto) 4.3 Eos % (Auto) 10.0 H Baso % (Auto) 0.2 Absolute Neuts (auto) 6.3 Absolute Lymphs (auto) 0.98 Nucleated RBC % 0 Sodium 139 Potassium 3.2 L Chloride 101 Carbon Dioxide 31.0 Anion Gap 7 BUN 48 H Creatinine 1.95 H Estim Creat Clear Calc 19.11 Est GFR (MDRD) Af Amer 32 L Est GFR (MDRD) Non-Af 26 L BUN/Creatinine Ratio 24.6 H Glucose 140 H Calcium 14.3 H* - EKG Initial EKG Interpretation: Sinus Rhythm - Sinus at [address] No acute ST change. - Medical Decision Making Work is repeated here with calcium confirmed at 14.3. Ionized calcium is currently pending. Patient was given a 1 L IV fluid bolus followed by fluids at 150. Patient will be admitted for further treatment. ED Disposition - Plan for ED Patient: Disposition: Acute Care [facility] Diagnosis: Hypercalcemia Referrals: Amos Fulton MD [Primary Care Provider] -
[2020-04-14] MEDS: 0.9% Normal Saline 1,000 ML 1000 ML IV (18:10)
[2020-04-14 18:15] LABS: Absolute Lymphocyte Count 0.98 X10^3/uL (0.83-4.51); Absolute Neutrophil Count 6.3 X10^3/uL (2.0-7.7); Basophil# 0.02 X10^3/uL; Basophil% 0.2 % (0-1); Eosinophil# 0.86 X10^3/uL; Hematocrit 35.6 % (37-47); Hemoglobin 11.3 g/dL (12.0-15.0); Lymphocyte # 0.98 X10^3/ul (4.0); Lymphocyte % 11.4 % (19-41); Mean Corp Hgb Conc 31.7 g/dL (32-36); Mean Corpuscular Hgb 29.1 pg (27.0-32.0); Mean Corpuscular Volume 91.8 fL (81-99); Mean Platelet Vol. 11.4 fl (6.2-12.0); Monocyte# 0.37 X10^3/uL; Monocyte% 4.3 % (0-10); NRBC Flagged by Analyzer 0 % (0-5); Neutrophil # 6.25 X10^3/uL (2.7-7.7); Platelet Count 238 K/mm3 (150-450); RBC Distribution Width CV 15.5 % (11.6-14.6); RBC Distribution Width SD 51.5 fl (35.1-43.9); Red Blood Count 3.88 M/mm3 (4.2-5.4); White Blood Count 8.6 K/mm3 (4.4-11.0)
[2020-04-14 18:44] LABS: Anion Gap 7 (5-15); BUN 48 mg/dL (7-18); BUN/Creat Ratio 24.6 RATIO (10-20); Calcium,Total 14.3 mg/dL (8.5-10.1); Chloride 101 mmol/L (98-107); Creatinine, Serum 1.95 mg/dL (0.55-1.02); EST Glomerular Filtration Rate 26 mL/min (>60); Est Glom Filt Rate - Afr Amer 32 mL/min (>60); Estimated Creatinine Clearance 19.11 ml/min; Glucose 140 mg/dL (74-106); Potassium 3.2 mmol/L (3.5-5.1); Sodium Level 139 mmol/L (136-145)
[2020-04-14] MEDS: 0.9% Normal Saline 1,000 ML 150 ML IV (19:08)
--- NOTE | 2020-04-14 19:08 | PCM.HP.STD ---
Problem List (1) Hypercalcemia Status: Acute (2) Orthostatic hypotension Status: Chronic (3) Recurrent deep vein thrombosis (DVT) Status: Chronic (4) History of pulmonary embolism Status: Chronic (5) Hyperlipidemia Status: Chronic Qualifiers: Hyperlipidemia type: unspecified (6) History of non-ST elevation myocardial infarction (NSTEMI) Status: Resolved Comment: possible coronary embolism (7) 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 Status: Chronic Qualifiers: 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 stage: stage 3 (moderate) 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 stage 3 subtype: unspecified whether 3a or 3b Qualified Code(s): N18.30 - 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, stage 3 unspecified (8) [place] disease Status: Chronic (9) History of kidney cancer Status: Chronic History of Present Illness Date of Admission: 04/14/20 Chief Complaint: Abnormal labs, BL LE edema The patient is a 75 y/o F w/ PMHx: CKD stage III, HTN, HLD, Hx DVTs/PE on coumadin, Hx NSTEMI, Kyler's disease, Known orthostatic hypotension, Hx renal CA s/p partial R nephrectomy and Hx L nephrectomy for donation, history of hypercalcemia which is waxed and waned over the years per discussion with daughter with prior extensive work-up at the [facility] with unclear etiology with recent admission and eventual transition to TCU discharge from TCU to home 2 days prior to current presentation to the [facility] ED on 04/14/20 with history of recurrent elevated calcium ongoing fatigue and increased thirst similar to previously but no acute other reported symptoms aside from bilateral ankle increased edema prompting return to ED for evaluation. Family and patient note that this is primarily been an issue since starting March 2020 but she has intermittently had issues through her life with hypercalcemia. Work-up in the ED included T 97.3, heart rate 105, BP 114/67, respiratory rate 18, 95% on room air, CBC with WBC 8.6, hemoglobin 11.3, platelet 238 with increased immature granulocytes, BMP with potassium 3.2, BUN/creatinine 48/1.95, glucose 140, calcium 14.3 with pending ionized calcium level (recent 04/09/20 admission with similar level 14.4 with known hypercalcemia on calcium supplementation at that time concurrently. In the ED patient ministered aggressive normal saline infusion. 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6 size 4 ring with support Elevated serum creatinine R79.89 History of DVT (deep vein thrombosis) Z86.718 Hypercalcemia E83.52 Hypokalemia E87.6 Osteopenia determined by x-ray M85.80 Acute electrocardiogram changes R94.31 Acute prerenal azotemia N19 Closed head injury Onset Date: 03/20/20 S09.90XA Hypoglycemia Onset Date: 03/20/20 E16.2 Hypotension I95.9 Pyelonephritis N12 Essential (primary) hypertension (Ruled-out) I10 Allergies ciprofloxacin [From Cipro] Allergy (Verified 04/10/20 08:29) Rash Penicillins Allergy (Verified 04/10/20 08:29) Rash Home Medications: Ambulatory Orders Medication Instructions Recorded L.acidoph,Paracasei, B.lactis 1 ea PO DAILY 03/24/16 [Probiotic] nitroglycerin 0.4 mg sublingual 0.4 mg SUBLINGUAL Q5-15M PRN 05/21/18 tablet Cholecalciferol (Vitamin D3) 1,000 unit PO DAILY 03/20/20 [Vitamin D3] Cyanocobalamin (Vitamin B-12) 1,000 mcg PO DAILY 03/20/20 [B-12] Gabapentin 300 mg PO DAILY 03/20/20 Gabapentin 600 mg PO QHS 03/20/20 Denosumab [Prolia] 60 mg SQ .[id number] 04/02/20 Dupilumab [Dupixent Pen] 300 mg SQ .[id number] #0 04/04/20 Acetaminophen [Tylenol] 1,000 mg PO Q6H PRN tab 04/08/20 Amlodipine [Norvasc] 5 mg PO DAILY #30 tab 04/08/20 Fludrocortisone Acetate [Florinef] 0.1 mg PO DAILY@0800 #30 tab 04/08/20 Fluticasone 0.05% [Flonase Nasal 1 spray NASAL QHS #1 nasal.sry 04/08/20 [place]] Hydrocortisone [Cortef] 10 mg PO DAILY@1800 #30 tab 04/08/20 Hydrocortisone [Cortef] 20 mg PO DAILY@0600 #60 tab 04/08/20 Menthol/Lanolin/Calamine/Znox 1 applic TOPICAL 0600,2200 tube 04/08/20 [Calmoseptine Ointment] Warfarin [Coumadin] 2.5 mg PO DAILY@1700 #30 tab 04/08/20 Atorvastatin Calcium [Lipitor] 10 mg PO QHS 04/09/20 Surgical History: Surgical History (Last Reviewed 04/10/20 @ 08:28 by Jacquie Johnston) H/O partial nephrectomy Onset Date: 2009 Z90.5 right partial secondary to renal tumor H/O total cystectomy Z90.6 breast right History of bladder repair surgery Z98.890 20+ years ago History of left heart catheterization Onset Date: 04/2009 Z98.890 norm coronary arteries History of left nephrectomy Onset Date: 2000 Z90.5 donated to 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 Lives: Spouse/ Significant Other Smoking Status: Never smoker Tobacco Use: Non-smoker Alcohol: None Drugs: None - *Family History Maternal Family History: Family History (Last Reviewed 04/10/20 @ 08:28 by Jacquie Johnston) Father CVA (cerebral vascular accident) Mother Myocardial infarction, Onset Age: 87 History Items: High Cholesterol, Heart Disease, Hypertension Paternal Family History: Family History (Last Reviewed 04/10/20 @ 08:28 by Jacquie Johnston) Father CVA (cerebral vascular accident) Mother Myocardial infarction, Onset Age: 87 History Items: Stroke Sibling Family History: Family History (Last Reviewed 04/10/20 @ 08:28 by Jacquie Johnston) Father CVA (cerebral vascular accident) Mother Myocardial infarction, Onset Age: 87 History Items: Renal Disease Review of Systems Constitutional: Reports: Malaise, Weakness, Fatigue. Denies: Anorexia, Chills, Fever, Weight Change HEENT: Denies: Head Aches, Sinus Congestion, Sinus Drainage Cardiovascular: Reports: Edema. Denies: Chest Pain, Palpitations Respiratory: Denies: Cough, Shortness of breath at rest, Sputum production Gastrointestinal: Denies: Abdominal Pain, Nausea, Vomiting Genitourinary: Denies: Dysuria Musculoskeletal: Reports: Joint Pain. Denies: Joint Tenderness Skin: Denies: Rash, Wounds Neurological: Denies: Numbness, Tingling, Focal weakness Psychiatric: Denies: Anxiety, Depression, Homicidal Ideations, Suicidal Ideations Endocrine: Reports: Polydipsia Hematologic/ Lymphatic: Reports: Anemia, Easy Bruising, Easy Bleeding VTE Information - Inpt Only VTE Present on Admission: No VTE Mechan Device Prophylaxis: SCD's VTE Pharm Prophylaxis ordered?: No Reason prophylaxis not ordered:: Treatment Not Indicated - Continue coumadin with INR trending. Patient Problems: Active and Suspected Problems (Last Reviewed 04/10/20 @ 08:28 by Jacquie Johnston) Hypercalcemia (Acute) Subjective: Patient seated upright in ED bed, fatigued appearing, no acute distress. Objective: Physical Examination: General: awake, alert, oriented x 3 and cooperative, seated upright in the ED bed, fatigued appearing, no acute distress. Skin: normal color, turgor, no icterus, cyanosis. HEENT: AT/NC, EOMI, PERRLA, mildly dry MM, no carotid bruits or JVD noted. Lungs: Diminished breath sounds, greater bases, normal effort, no rales, ronchi or wheezing. Heart: Regular rate and rhythm; no gallop, rub audible. Abdomen: soft, NTTP, ND, normal BS, no HSM. Extremities: no cyanosis, clubbing, or edema. Neurological: patient awake, alert, oriented as noted; cognitive function appears baseline intact; pupils equally reactive to light and accomodation; cranial nerves II-XII grossly normal, moving all 4 extremities, no focal deficits, strength moderately to severely global decreased. Psychiatric: affect appears flat, fatigued appearing, no acute evidence of depressive or anxiety feelings. - Physical Exam Vitals/I&O's: Vital Signs Temp Pulse Resp BP Pulse Ox 97.3 F L 105 H 18 114/67 95 04/14/20 17:19 04/14/20 17:19 04/14/20 17:19 04/14/20 17:19 04/14/20 17:19 Oxygen Delivery Method Room Air Weight: 146 lb 9.718 oz Body Mass Index (BMI) 26.8 Intake and Output for Last 24 Hours 04/12/20 04/13/20 04/14/20 23:59 23:59 23:59 Intake Total 1000 / 1000 Balance 1000 / 1000 Laboratory Results 04/14/20 18:08: WBC 8.6, RBC 3.88 L, Hgb 11.3 L, Hct 35.6 L, MCV 91.8, MCH 29.1, MCHC 31.7 L, RDW Std Deviation 51.5 H, RDW Coeff of Slava 15.5 H, Plt Count 238, MPV 11.4, Immature Gran % (Auto) 1.100 H, Neut % (Auto) 73.0 H, Lymph % (Auto) 11.4 L, [place] % (Auto) 4.3, Eos % (Auto) 10.0 H, Baso % (Auto) 0.2, Absolute Neuts (auto) 6.3, Absolute Lymphs (auto) 0.98, Nucleated RBC % 0 04/14/20 18:08: Sodium 139, Potassium 3.2 L, Chloride 101, Carbon Dioxide 31.0, Anion Gap 7, BUN 48 H, Creatinine 1.95 H, Estim Creat Clear Calc 19.11, Est GFR (MDRD) Af Amer 32 L, Est GFR (MDRD) Non-Af 26 L, BUN/Creatinine Ratio 24.6 H, Glucose 140 H, Calcium 14.3 H* 04/14/20 18:08: Ionized Calcium Pending Current Medications Sodium Chloride () 1,000 mls @ 150 mls/hr IV .Q6H40M KARLY Last Admin: 04/14/20 19:08 Dose: 150 mls/hr Documented by: Assessment/Plan All Active Problems (Last Reviewed 04/10/20 @ 08:28 by Jacquie Johnston) Hypercalcemia (Acute) Frequent falls (Acute) History of non-ST elevation myocardial infarction (NSTEMI) (Resolved 04/2009) Debility (Resolved) Hypotensive episode (Resolved) Pyelonephritis, acute (Resolved) Sepsis (Resolved) Supratherapeutic INR (Resolved) Weakness (Resolved) Essential (primary) hypertension (Ruled-out) The patient is a 75 y/o F w/ PMHx: CKD stage III, HTN, HLD, Hx DVTs/PE on coumadin, Hx NSTEMI, Kyler's disease, Known orthostatic hypotension, Hx renal CA s/p partial R nephrectomy and Hx L nephrectomy for donation, history of hypercalcemia which is waxed and waned over the years per discussion with daughter with prior extensive work-up at the [facility] with unclear etiology with recent admission and eventual transition to TCU discharge from TCU to home 2 days prior to current presentation to the [facility] ED on 04/14/20 with history of recurrent elevated calcium ongoing fatigue and increased thirst similar to previously. 1. Acute Recurrent Hypercalcemia, Symptomatic: Recent admission with concern for Kyler's crisis with alteration of patient's regimen however she continues to have similar elevated calcium levels as well as mild ongoing symptoms. Patient with transient elevated calcium levels most recently noted during prior admission 04/02/2020 and repeat admission 04/09/2020 with family noting previously extensive work-up at the [facility]. Will admit to medical surgical floor, maintain on telemetry given electrolyte disturbances pending further work-up, will request records from [facility] and in interim will obtain hepatic profile, PTH, phosphorus level and initiate 24-hour urine calcium assessment as well as vitamin D levels, d/c CA and vitamin D supplements although patient notes she stopped her calcium but is continuing her vitamin D supplements, administer calcitonin trial given level although from discussions with pharmacy only nasal administration available with continued monitoring of her symptoms with repeat CMP in AM. 2. Hypokalemia: Admission K+ 3.2, magnesium level requested, supplementation given, repeat level in AM. 3. [place]'s disease: Patient following with Dr. Vann who was spoken with during her prior admission, will continue patient Cortef regimen as well as Florinef regimen. 4. History of NSTEMI: Continue Coumadin with INR trending, not on beta-debo, BIMAL inhibitor or ARB likely secondary to significant orthostatic hypotension history, continue patient statin regimen. 5. Hypertension: Significantly reported history of orthostatic hypotension, not on regimen, monitor and use as needed IV hydralazine as needed. 6. Hyperlipidemia: Continue patient statin regimen. 7. Chronic Kidney Disease Stage III: Admission BUN/Cr 8/1.95, baseline renal function most recently 1.7-2.0 although from review of records has been steadily increasing from prior baseline in 2019 of 1.3-1.6, repeat BMP in AM. 8. History of VTE: History of DVTs and PEs, will maintain on coumadin, same day INR 1.9, continue coumadin with INR trending. 9. History of renal cancer: Patient with history of renal cancer remotely status post partial right nephrectomy with history of previous to this of donation of the left kidney noted to be in remission with chronic kidney disease as noted above. 10. DVT prophylaxis: SCDs, continue Coumadin with INR trending as noted. 11. CODE status: Patient ROBERTO is her daughter who is present and living will is currently in place. Discussed CODE status at length including difference between FULL code, DNR-CCA and DNR-CC status. Following discussions about the differences in these status, requested DNR-CCA, no intubation status. Advanced Care Planning Face to Face Time: 16 minutes. OBSV E&M: 49126 Initial observation care L3 Procedures: 28683 Advncd Care Plan 30 Min
[2020-04-14 19:22] VITALS: BP 147/99; PULSE 92; RESP 16; O2SAT 95
[2020-04-14 19:23] VITALS: BP 147/99; PULSE 92; RESP 16; TEMP 36.3; O2SAT 95
--- NOTE | 2020-04-14 19:33 | ED.RN ---
THIS RN ATTEMPTED DC FOR URINE SPECIMEN. UNABLE TO OBTAIN SAMPLE AT THIS TIME. DR. CASILLAS INFORMED.
[2020-04-14 21:16] VITALS: BMI 27.5
[2020-04-14 21:50] VITALS: PULSE 94
[2020-04-14 21:58] LABS: Vitamin D,25 Hydroxy 37.6 ng/mL
[2020-04-14 22:05] VITALS: BP 133/80; PULSE 92; RESP 18; TEMP 36.9; O2SAT 95
[2020-04-14 22:21] LABS: AST(SGOT) 84 U/L (15-37); Alanine Aminotransfer ALT/SGPT 79 U/L (13-56); Albumin, Serum 2.3 g/dL (3.2-5.0); Alkaline Phosphatase 93 U/L (45-117); Bilirubin, Direct < 0.05 mg/dL (0.00-0.30); Globulin 3.2 g/dL (2.2-4.2); Magnesium 2.1 mg/dL (1.6-2.6); Phosphorus 4.4 mg/dL (2.5-4.9); Protein, Total 5.5 g/dL (6.4-8.2)
[2020-04-14] MEDS: Potassium Chloride Oral Tablet 20 MEQ 40 MEQ PO (22:59)
[2020-04-14] MEDS: Atorvastatin Calcium 10 MG Tablet PO (23:00)
[2020-04-14] MEDS: Gabapentin 600 MG Tablet PO (23:00)
[2020-04-14] MEDS: Calcitonin-Salmon 1 SPRAY SPRAY NARES (23:01)
[2020-04-14] MEDS: Fluticasone 0.05% 1 SPRAY NASAL.SRY NASAL (23:01)
[2020-04-15] VITALS (15 sets, daily range): BP systolic 89–146; BP diastolic 53–83; PULSE 90–110; RESP 16–18; TEMP 36.6–36.9; O2SAT 92–97
[2020-04-15 01:33] LABS: Mucous, Urine 0 SEEN /hpf (<or=2+); Red Blood Cells-Urine 0 SEEN /hpf (0-5); Squamous Epithelial Cells - UA 0 SEEN /hpf (5-10)
[2020-04-15 01:41] LABS: Color, Urine Yellow (Yellow); Glucose, Dipstick Normal (Normal); Ketone-Dipstick Negative (Negative); Leukocyte Esterase-Dipstick 500 /ul (Negative); Nitrite-Dipstick Negative (Negative); Occult Blood-Urine 10 /ul (Negative); Protein-Dipstick 15 mg/dl (Negative); Urine Bilirubin Dipstick Negative (Negative); Urine Clarity Clear (Clear); Urine Urobilinogen Normal (Normal)
[2020-04-15 01:49] LABS: Bacteria 3+ /hpf (None Seen); White Blood Cells 5-10 SEEN /hpf (0-5)
--- NOTE | 2020-04-15 02:16 | NURSING ---
Dr. Fontaine would like urine culture done. Contacted lab to see if they were able to run the culture off the sample that we sent earlier. They confirmed they could run it and will do so.
[2020-04-15] MEDS: 0.9% Normal Saline 1,000 ML 150 ML IV ×4 (03:50→22:18)
[2020-04-15] MEDS: Hydrocortisone 10 MG Tablet 20 MG PO (06:11)
[2020-04-15 06:36] LABS: Absolute Lymphocyte Count 1.02 X10^3/uL (0.83-4.51); Absolute Neutrophil Count 5.3 X10^3/uL (2.0-7.7); Basophil# 0.02 X10^3/uL; Basophil% 0.3 % (0-1); Eosinophils% 10.7 % (0-5); Hematocrit 33.8 % (37-47); Hemoglobin 10.7 g/dL (12.0-15.0); Lymphocyte # 1.02 X10^3/ul (4.0); Lymphocyte % 13.7 % (19-41); Mean Corp Hgb Conc 31.7 g/dL (32-36); Mean Corpuscular Hgb 29.3 pg (27.0-32.0); Mean Corpuscular Volume 92.6 fL (81-99); Mean Platelet Vol. 11.2 fl (6.2-12.0); Monocyte# 0.27 X10^3/uL; Monocyte% 3.6 % (0-10); NRBC Flagged by Analyzer 0 % (0-5); Neutrophil # 5.28 X10^3/uL (2.7-7.7); Neutrophil % 70.6 % (47-70); Platelet Count 237 K/mm3 (150-450); RBC Distribution Width CV 15.6 % (11.6-14.6); Red Blood Count 3.65 M/mm3 (4.2-5.4); White Blood Count 7.5 K/mm3 (4.4-11.0)
[2020-04-15 06:45] LABS: International Normalized Ratio 1.8; Prothrombin Time (Protime)PT. 20.5 SECONDS (11.7-14.9)
[2020-04-15 07:04] LABS: ALB/GLOB Ratio 0.7 RATIO (0.9-2.4); AST(SGOT) 63 U/L (15-37); Alanine Aminotransfer ALT/SGPT 62 U/L (13-56); Albumin, Serum 1.9 g/dL (3.2-5.0); Alkaline Phosphatase 64 U/L (45-117); Anion Gap 6 (5-15); BUN 43 mg/dL (7-18); BUN/Creat Ratio 24.9 RATIO (10-20); Calcium,Total 12.3 mg/dL (8.5-10.1); Chloride 107 mmol/L (98-107); Creatinine, Serum 1.73 mg/dL (0.55-1.02); EST Glomerular Filtration Rate 30 mL/min (>60); Est Glom Filt Rate - Afr Amer 37 mL/min (>60); Estimated Creatinine Clearance 21.54 ml/min; Globulin 2.7 g/dL (2.2-4.2); Glucose 63 mg/dL (74-106); Potassium 3.2 mmol/L (3.5-5.1); Protein, Total 4.6 g/dL (6.4-8.2); Sodium Level 144 mmol/L (136-145)
[2020-04-15 08:31] LABS: PTHIN 11.1 pg/mL (18.4-80.1)
[2020-04-15] MEDS: Fludrocortisone Acetate 0.1 MG Tablet PO (08:49)
[2020-04-15] MEDS: Calcitonin-Salmon 1 SPRAY SPRAY NARES (10:14)
[2020-04-15] MEDS: Gabapentin 300 MG Capsule PO (10:14)
[2020-04-15] MEDS: amLODIPine 5 MG Tablet PO (10:14)
--- NOTE | 2020-04-15 12:42 | PN_ITS ---
Patient Problems: Active and Suspected Problems (Last Reviewed 04/10/20 @ 08:28 by Jacquie Johnston) Hypercalcemia (Acute) Subjective: Patient seen and examined. She was admitted with a compliant of abnormal labs. She did labs which showed that her calcium was elevated at 14.3. Patient has a history of hypercalcemia for which she has been worked up extensively in clinic and she has had no clear cause of it. She has been hydrated with IV fluids. Patient was lethargic today but had no complaints. Review of symptoms otherwise negative. She has remained hemodynamically stable. Calcium is down to 12.3 today. Vitals/I&O's: Vital Signs Temp Pulse Resp BP Pulse Ox 97.8 F 108 H 18 104/65 92 04/15/20 08:28 04/15/20 10:19 04/15/20 08:28 04/15/20 08:28 04/15/20 08:28 Oxygen Delivery Method Room Air Weight: 150 lb 9.211 oz Body Mass Index (BMI) 27.5 Intake and Output for Last 24 Hours 04/13/20 04/14/20 04/15/20 23:59 23:59 23:59 Intake Total 1000 / 1000 1870 / 1870 Output Total 1250 / 1250 Balance 1000 / 1000 620 / 620 General: Alert, Cooperative, No apparent distress, Lethargic HEENT: Atraumatic, PERRLA, EOMI, Normocephalic Oral: Dry Mucosa Neck: Supple, No JVD, Negative Carotid Bruits Lungs: Clear to auscultation, Normal air movement Cardiovascular: Regular rate, Regular Rhythm, Normal S1, Normal S2, No murmurs Abdomen: Bowel Sounds Present, Soft, Non Tender, Non-Distended, No Hepato- splenomegaly Extremities: No edema, Capillary Refill Less than 3 Seconds Skin: No rashes, No breakdown Musculoskeletal: No Tenderness to Palpation of Joints or Extremities Lymphatic: No Cervical, Supraclavicular, or Inguinal Adenopathy Neurological: Cranial nerves II-XII grossly intact, Neuro grossly intact, Motor Exam 5/5 strength throughout Psych/Mental Status: Normal Affect, Appropriate, Alert and oriented to time, place, person, mood and affect Laboratory Results 04/14/20 18:08: WBC 8.6, RBC 3.88 L, Hgb 11.3 L, Hct 35.6 L, MCV 91.8, MCH 29.1, MCHC 31.7 L, RDW Std Deviation 51.5 H, RDW Coeff of Slava 15.5 H, Plt Count 238, MPV 11.4, Immature Gran % (Auto) 1.100 H, Neut % (Auto) 73.0 H, Lymph % (Auto) 11.4 L, [place] % (Auto) 4.3, Eos % (Auto) 10.0 H, Baso % (Auto) 0.2, Absolute Neuts (auto) 6.3, Absolute Lymphs (auto) 0.98, Nucleated RBC % 0 04/14/20 18:08: Sodium 139, Potassium 3.2 L, Chloride 101, Carbon Dioxide 31.0, Anion Gap 7, BUN 48 H, Creatinine 1.95 H, Estim Creat Clear Calc 19.11, Est GFR (MDRD) Af Amer 32 L, Est GFR (MDRD) Non-Af 26 L, BUN/Creatinine Ratio 24.6 H, Glucose 140 H, Calcium 14.3 H* 04/14/20 18:08: Phosphorus 4.4, Magnesium 2.1, Total Bilirubin 0.50, Direct Bilirubin < 0.05, AST 84 H, ALT 79 H, Alkaline Phosphatase 93, Total Protein 5.5 L, Albumin 2.3 L, Globulin 3.2 04/14/20 18:08: PTH Intact 11.1 L 04/14/20 18:08: Vitamin D 25-Hydroxy 37.6 04/15/20 01:21: Urine Color Yellow, Urine Clarity Clear, Urine pH 7.0, Ur Specific [place] 1.010, Urine Protein 15 H, Urine Glucose (UA) Normal, Urine Ketones Negative, Urine Occult Blood 10 H, Urine Nitrite Negative, Urine Bilirubin Negative, Urine Urobilinogen Normal, Ur Leukocyte Esterase 500 H, Urine RBC 0 SEEN, Urine WBC 5-10 SEEN, Ur Squamous Epith Cells 0 SEEN, Urine Bacteria 3+, Urine Mucus 0 SEEN 04/15/20 06:05: Ionized Calcium Pending 04/15/20 06:05: Vit D 1,25-Dihydroxy Pending 04/15/20 06:05: WBC 7.5, RBC 3.65 L, Hgb 10.7 L, Hct 33.8 L, MCV 92.6, MCH 29.3, MCHC 31.7 L, RDW Std Deviation 53.0 H, RDW Coeff of [place]ava 15.6 H, Plt Count 237, MPV 11.2, Immature Gran % (Auto) 1.100 H, Neut % (Auto) 70.6 H, Lymph % (Auto) 13.7 L, [place] % (Auto) 3.6, Eos % (Auto) 10.7 H, Baso % (Auto) 0.3, Absolute Neuts (auto) 5.3, Absolute Lymphs (auto) 1.02, Nucleated RBC % 0 04/15/20 06:05: PT 20.5 H, INR 1.8 04/15/20 06:05: Sodium 144, Potassium 3.2 L, Chloride 107, Carbon Dioxide 31.0, Anion Gap 6, BUN 43 H, Creatinine 1.73 H, Estim Creat Clear Calc 21.54, Est GFR (MDRD) Af Amer 37 L, Est GFR (MDRD) Non-Af 30 L, BUN/Creatinine Ratio 24.9 H, Glucose 63 L, Calcium 12.3 H, Total Bilirubin 0.70, AST 63 H, ALT 62 H, Alkaline Phosphatase 64, Total Protein 4.6 L, Albumin 1.9 L, Globulin 2.7, Albumin/Globulin Ratio 0.7 L Current Medications Acetaminophen (Acetaminophen 325 Mg Tablet) 650 mg PO Q6H PRN PRN PRN Reason: Pain Score 1-10/Temp > 100.7 F Al Hydroxide/Mg Hydroxide (Mag Hydrox/Al Hydrox/Simeth 30 Ml Udc) 30 ml PO Q6H PRN PRN PRN Reason: Gastric Burning Albuterol Sulfate (Albuterol 2.5 Mg/3 Ml Vial.Neb.) 2.5 mg INHALATION Q2H PRN PRN PRN Reason: Dyspnea, wheezing Amlodipine Besylate (Amlodipine 5 Mg Tablet) 5 mg PO DAILY [facility] Last Admin: 04/15/20 10:14 Dose: 5 mg Documented by: Atorvastatin Calcium (Atorvastatin Calcium 10 Mg Tablet) 10 mg PO QHS [facility] Last Admin: 04/14/20 23:00 Dose: 10 mg Documented by: Calcitonin [place] (Calcitonin-[place] 1 [place]) 1 spray NARES DAILY [facility] Last Admin: 04/15/20 10:14 Dose: 1 spray Documented by: Fludrocortisone Acetate (Fludrocortisone Acetate 0.1 Mg Tablet) 0.1 mg PO DAILY@0800 [facility] Last Admin: 04/15/20 08:49 Dose: 0.1 mg Documented by: Fluticasone Propionate (Fluticasone 0.05% 1 [place] Nasal.Sry) [facility] Last Admin: 04/14/20 23:01 Dose: 1 spray Documented by: Gabapentin (Gabapentin 600 Mg Tablet) 600 mg PO QHS [facility] Last Admin: 04/14/20 23:00 Dose: 600 mg Documented by: Gabapentin (Gabapentin 300 Mg Capsule) 300 mg PO DAILY [facility] Last Admin: 04/15/20 10:14 Dose: 300 mg Documented by: Guaifenesin (Guaifenesin 10 Ml Udc (200mg/10ml)) 20 ml PO Q4H PRN PRN PRN Reason: COUGH Hydralazine HCl (Hydralazine 20 Mg/Ml Vial) 10 mg IV Q4H PRN PRN PRN Reason: SBP > 160 Hydrocortisone (Hydrocortisone 10 Mg Tablet) 20 mg PO DAILY@0600 [facility] Last Admin: 04/15/20 06:11 Dose: 20 mg Documented by: Hydrocortisone (Hydrocortisone 10 Mg Tablet) 10 mg PO DAILY@1800 [facility] Sodium Chloride () 1,000 mls @ 150 mls/hr IV .Q6H40M [facility] Last Admin: 04/15/20 03:50 Dose: 150 mls/hr Documented by: Sodium Chloride () 250 mls @ 15 mls/hr IV .[id number] PRN PRN Reason: Saline Flush Sodium Chloride () 250 mls @ 15 mls/hr IV .[id number] PRN PRN Reason: Additional IVPB Infusion Magnesium Hydroxide (Magnesium Hydroxide 30 Ml Udc) 30 ml PO DAILY PRN PRN PRN Reason: Constipation Melatonin (Melatonin 3 Mg Tablet) 3 mg PO QHS PRN PRN PRN Reason: INSOMNIA Ondansetron HCl (Ondansetron 4 Mg/2 Ml Vial) 4 mg IV Q8H PRN PRN PRN Reason: NAUSEA/VOMITING Prochlorperazine Edisylate (Prochlorperazine 10 Mg/2 Ml Vial) 5 mg IV Q4H PRN PRN PRN Reason: Breakthrough nausea/vomiting Psyllium Hydrophilic Mucilloid (Psyllium 1 Packet) 1 packet PO DAILY PRN PRN PRN Reason: Constipation Senna/Docusate Sodium (Senna/Docusate Sodium 1 Tablet) 2 tablet PO BID PRN PRN PRN Reason: Constipation Sodium Chloride (0.9% Saline Lock 10 Ml Syringe) 10 - 40 ml IV UD PRN PRN Reason: SALINE FLUSH Throat Lozenges (Benzocaine/Menthol 1 Lozenge) 1 lozenge MUCOUS MEM Q2H PRN PRN PRN Reason: SORE THROAT Warfarin Sodium (Warfarin 2.5 Mg Tablet) 2.5 mg PO DAILY@1700 [facility] STROKE Vital Signs/Narrative: Vital Signs Pulse 04/15/20 10:19 108 H Medical Necessity - Tobacco Use Smoking Status: Never smoker Tobacco Use: Non-smoker Assessment/Plan All Active Problems (Last Reviewed 04/10/20 @ 08:28 by Jacquie Johnston) Hypercalcemia (Acute) Frequent falls (Acute) History of non-ST elevation myocardial infarction (NSTEMI) (Resolved 04/2009) Debility (Resolved) Hypotensive episode (Resolved) Pyelonephritis, acute (Resolved) Sepsis (Resolved) Supratherapeutic INR (Resolved) Weakness (Resolved) Essential (primary) hypertension (Ruled-out) #Recurrent acue hypercalcemia * calcium was 14.3 on admission, now down to 12.3 * continue hyudration with IVF and trend calcium * consider adding on lasix if calcium remains elevated * #Hypokalemia: K is 3.2. Will replace and trend #history of [place]'s disease: on hydrocortisone and florinef. Follow-up with endocrinology on outpatient basis. #Hypertension: on amlodipine #Hyperlipidemia: On statin #CKD stage III: Creatinine is 1.73. Will trend. 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 * Stable. Has CKD stage III as above. * DVT prophylaxis: on coumadin. INR is 1.8 Inpatient E&M: 93181 Subs Hosp L2
[2020-04-15] MEDS: 0.9% Saline Lock 10 ML Syringe IV (13:47)
--- NOTE | 2020-04-15 14:12 | CASEMGMT ---
RN Cm in to discuss MARSHALL form with patient. RN CM explained MARSHALL form, pt voiced understanding. Pt signed [place] form and filed in chart. Pt provided with copy of signed MARSHALL form. Pt had no further questions or concerns at this time.
[2020-04-15] MEDS: 0.9% Normal Saline 1,000 ML 999 ML IV (14:28)
[2020-04-15] MEDS: Hydrocortisone 10 MG Tablet PO (18:08)
[2020-04-15] MEDS: Gabapentin 600 MG Tablet PO (20:48)
[2020-04-15] MEDS: Atorvastatin Calcium 10 MG Tablet PO (20:48)
[2020-04-15] MEDS: Fluticasone 0.05% 1 SPRAY NASAL.SRY NASAL (20:48)
[2020-04-16] VITALS (11 sets, daily range): BP systolic 102–137; BP diastolic 61–83; PULSE 85–107; RESP 16; TEMP 36.6–36.9; O2SAT 92–97
[2020-04-16 03:53] LABS: 24HR UR TOTAL VOLUME 2200 ml; Calcium Urine pH Range 1; Urine Calcium (Random) 16.5 (Not Estab.)
[2020-04-16] MEDS: 0.9% Normal Saline 1,000 ML 150 ML IV ×3 (05:01→18:28)
[2020-04-16] MEDS: Hydrocortisone 10 MG Tablet 20 MG PO (05:01)
[2020-04-16 07:56] LABS: Absolute Lymphocyte Count 0.61 X10^3/uL (0.83-4.51); Absolute Neutrophil Count 8.5 X10^3/uL (2.0-7.7); Basophil# 0.01 X10^3/uL; Basophil% 0.1 % (0-1); Eosinophil# 0.56 X10^3/uL; Eosinophils% 5.5 % (0-5); Hematocrit 32.1 % (37-47); Hemoglobin 10.3 g/dL (12.0-15.0); Lymphocyte # 0.61 X10^3/ul (4.0); Mean Corp Hgb Conc 32.1 g/dL (32-36); Mean Corpuscular Hgb 28.9 pg (27.0-32.0); Mean Corpuscular Volume 90.2 fL (81-99); Mean Platelet Vol. 10.7 fl (6.2-12.0); Monocyte# 0.38 X10^3/uL; Monocyte% 3.7 % (0-10); NRBC Flagged by Analyzer 0 % (0-5); Neutrophil # 8.52 X10^3/uL (2.7-7.7); Neutrophil % 83.5 % (47-70); Platelet Count 239 K/mm3 (150-450); RBC Distribution Width CV 15.3 % (11.6-14.6); RBC Distribution Width SD 50.7 fl (35.1-43.9); Red Blood Count 3.56 M/mm3 (4.2-5.4); White Blood Count 10.2 K/mm3 (4.4-11.0)
[2020-04-16 08:23] LABS: ALB/GLOB Ratio 0.7 RATIO (0.9-2.4); AST(SGOT) 72 U/L (15-37); Alanine Aminotransfer ALT/SGPT 70 U/L (13-56); Albumin, Serum 1.9 g/dL (3.2-5.0); Alkaline Phosphatase 60 U/L (45-117); Anion Gap 6 (5-15); BUN 43 mg/dL (7-18); Chloride 110 mmol/L (98-107); Creatinine, Serum 1.72 mg/dL (0.55-1.02); EST Glomerular Filtration Rate 31 mL/min (>60); Est Glom Filt Rate - Afr Amer 37 mL/min (>60); Estimated Creatinine Clearance 21.66 ml/min; Globulin 2.7 g/dL (2.2-4.2); Glucose 83 mg/dL (74-106); Potassium 3.1 mmol/L (3.5-5.1); Protein, Total 4.6 g/dL (6.4-8.2); Sodium Level 144 mmol/L (136-145)
[2020-04-16] MEDS: Fludrocortisone Acetate 0.1 MG Tablet PO (09:03)
[2020-04-16] MEDS: Calcitonin-Salmon 1 SPRAY SPRAY NARES (09:05)
[2020-04-16] MEDS: Gabapentin 300 MG Capsule PO (09:07)
[2020-04-16] MEDS: amLODIPine 5 MG Tablet PO (09:09)
--- NOTE | 2020-04-16 14:20 | CHAPLAIN ---
Type of Pastoral Visit _x__ Initial Visit ___ Follow-up Visit ___ On-call Visit ___ General Patient Visit ___ Spiritual Assessment ___ Family Conference ___ Bereavement ___ Rapid Response ___ Code Blue ___ Other (describe below) Pastoral Care Referral From _x__ Patient ___ Family ___ Nurse ___ Physician ___ Grid Trimmer ___ Vessel Traffic Officer ___ Other (describe below) Sacrament/Intervention _x__ Active listening ___ Anointing ___ Buddhism ___ Bereavement ___ Communion ___ Cierra exploration ___ _x__ Life review _x__ Prayer ___ Reconciliation ___ Sacrament of Sick _x__ Supportive presence ___ Wedding ___ Other (describe below) Pastoral Comments
--- NOTE | 2020-04-16 15:06 | PCM.PN.HOSP ---
Patient Problems: Active and Suspected Problems (Last Reviewed 04/10/20 @ 08:28 by Jacquie Johnston) Hypercalcemia (Acute) Subjective: Patient seen and examined. She had no complaints this morning was much more alert. Review of symptoms otherwise negative. Remained hemodynamically stable. Vitals/I&O's: Vital Signs Temp Pulse Resp BP Pulse Ox 98.4 F 97 16 125/83 H 95 04/16/20 14:24 04/16/20 14:24 04/16/20 14:24 04/16/20 14:24 04/16/20 14:24 Oxygen Delivery Method Room Air Weight: 152 lb 1.903 oz Body Mass Index (BMI) 27.5 Intake and Output for Last 24 Hours 04/14/20 04/15/20 04/16/20 23:59 23:59 23:59 Intake Total 1000 / 1000 5302.5 / 5502.5 2320 / 2320 Output Total 1650 / 1950 900 / 900 Balance 1000 / 1000 3652.5 / 3552.5 1420 / 1420 General: Alert, Cooperative, No apparent distress HEENT: Atraumatic, PERRLA, EOMI, Normocephalic Oral: Dry Mucosa Neck: Supple, No JVD, Negative Carotid Bruits Lungs: Clear to auscultation, Normal air movement Cardiovascular: Regular rate, Regular Rhythm, Normal S1, Normal S2, No murmurs Abdomen: Bowel Sounds Present, Soft, Non Tender, Non-Distended, No Hepato-splenomegaly Extremities: No edema, Capillary Refill Less than 3 Seconds Skin: No rashes, No breakdown Musculoskeletal: No Tenderness to Palpation of Joints or Extremities Lymphatic: No Cervical, Supraclavicular, or Inguinal Adenopathy Neurological: Cranial nerves II-XII grossly intact, Neuro grossly intact, Motor Exam 5/5 strength throughout Psych/Mental Status: Normal Affect, Appropriate, Alert and oriented to time, place, person, mood and affect Microbiology Past 72 Hours 04/15/20 01:21 Urine, Clean Catch Urine Culture - Preliminary Alpha hemolytic organism Streptococcus agalactiae (B) Laboratory Results 04/16/20 01:00: Urine pH 1, Urine Collection Time 24.0, Urine Total Volume 2200, Urine Calcium 16.5, Ur Calcium 24 Hr 363.0 H 04/16/20 07:45: WBC 10.2, RBC 3.56 L, Hgb 10.3 L, Hct 32.1 L, MCV 90.2, MCH 28.9, MCHC 32.1, RDW Std Deviation 50.7 H, RDW Coeff of Slava 15.3 H, Plt Count 239, MPV 10.7, Immature Gran % (Auto) 1.200 H, Neut % (Auto) 83.5 H, Lymph % (Auto) 6.0 L, [place] % (Auto) 3.7, Eos % (Auto) 5.5 H, Baso % (Auto) 0.1, Absolute Neuts (auto) 8.5 H, Absolute Lymphs (auto) 0.61 L, Nucleated RBC % 0 04/16/20 07:45: Sodium 144, Potassium 3.1 L, Chloride 110 H, Carbon Dioxide 28.0, Anion Gap 6, BUN 43 H, Creatinine 1.72 H, Estim Creat Clear Calc 21.66, Est GFR (MDRD) Af Amer 37 L, Est GFR (MDRD) Non-Af 31 L, BUN/Creatinine Ratio 25.0 H, Glucose 83, Calcium 12.0 H, Total Bilirubin 0.50, AST 72 H, ALT 70 H, Alkaline Phosphatase 60, Total Protein 4.6 L, Albumin 1.9 L, Globulin 2.7, Albumin/Globulin Ratio 0.7 L Current Medications Acetaminophen (Acetaminophen 325 Mg Tablet) 650 mg PO Q6H PRN PRN PRN Reason: Pain Score 1-10/Temp > 100.7 F Al Hydroxide/Mg Hydroxide (Mag Hydrox/Al Hydrox/Simeth 30 Ml Udc) 30 ml PO Q6H PRN PRN PRN Reason: Gastric Burning Albuterol Sulfate (Albuterol 2.5 Mg/3 Ml Vial.Neb.) 2.5 mg INHALATION Q2H PRN PRN PRN Reason: Dyspnea, wheezing Amlodipine Besylate (Amlodipine 5 Mg Tablet) 5 mg PO DAILY [facility] Last Admin: 04/16/20 09:09 Dose: 5 mg Documented by: Atorvastatin Calcium (Atorvastatin Calcium 10 Mg Tablet) 10 mg PO QHS [facility] Last Admin: 04/15/20 20:48 Dose: 10 mg Documented by: Calcitonin [place] (Calcitonin-[place] 1 [place]) 1 spray NARES DAILY [facility] Last Admin: 04/16/20 09:05 Dose: 1 spray Documented by: Fludrocortisone Acetate (Fludrocortisone Acetate 0.1 Mg Tablet) 0.1 mg PO DAILY@0800 [facility] Last Admin: 04/16/20 09:03 Dose: 0.1 mg Documented by: Fluticasone Propionate (Fluticasone 0.05% 1 [place] Nasal.Sry) 1 spray NASAL QHS [facility] Last Admin: 04/15/20 20:48 Dose: 1 spray Documented by: Gabapentin (Gabapentin 600 Mg Tablet) 600 mg PO QHS [facility] Last Admin: 04/15/20 20:48 Dose: 600 mg Documented by: Gabapentin (Gabapentin 300 Mg Capsule) 300 mg PO DAILY [facility] Last Admin: 04/16/20 09:07 Dose: 300 mg Documented by: Guaifenesin (Guaifenesin 10 Ml Udc (200mg/10ml)) 20 ml PO Q4H PRN PRN PRN Reason: COUGH Hydralazine HCl (Hydralazine 20 Mg/Ml Vial) 10 mg IV Q4H PRN PRN PRN Reason: SBP > 160 Hydrocortisone (Hydrocortisone 10 Mg Tablet) 20 mg PO DAILY@0600 [facility] Last Admin: 04/16/20 05:01 Dose: 20 mg Documented by: Hydrocortisone (Hydrocortisone 10 Mg Tablet) 10 mg PO DAILY@1800 [facility] Last Admin: 04/15/20 18:08 Dose: 10 mg Documented by: Sodium Chloride () 1,000 mls @ 150 mls/hr IV .Q6H40M [facility] Last Admin: 04/16/20 12:49 Dose: 150 mls/hr Documented by: Sodium Chloride () 250 mls @ 15 mls/hr IV .[id number] PRN PRN Reason: Saline Flush Sodium Chloride () 250 mls @ 15 mls/hr IV .[id number] PRN PRN Reason: Additional IVPB Infusion Magnesium Hydroxide (Magnesium Hydroxide 30 Ml Udc) 30 ml PO DAILY PRN PRN PRN Reason: Constipation Melatonin (Melatonin 3 Mg Tablet) 3 mg PO QHS PRN PRN PRN Reason: INSOMNIA Ondansetron HCl (Ondansetron 4 Mg/2 Ml Vial) 4 mg IV Q8H PRN PRN PRN Reason: NAUSEA/VOMITING Prochlorperazine Edisylate (Prochlorperazine 10 Mg/2 Ml Vial) 5 mg IV Q4H PRN PRN PRN Reason: Breakthrough nausea/vomiting Psyllium Hydrophilic Mucilloid (Psyllium 1 Packet) 1 packet PO DAILY PRN PRN PRN Reason: Constipation Senna/Docusate Sodium (Senna/Docusate Sodium 1 Tablet) 2 tablet PO BID PRN PRN PRN Reason: Constipation Sodium Chloride (0.9% Saline Lock 10 Ml Syringe) 10 - 40 ml IV UD PRN PRN Reason: SALINE FLUSH Last Admin: 04/15/20 13:47 Dose: 10 ml Documented by: Throat Lozenges (Benzocaine/Menthol 1 Lozenge) 1 lozenge MUCOUS MEM Q2H PRN PRN PRN Reason: SORE THROAT Warfarin Sodium (Warfarin 2.5 Mg Tablet) 2.5 mg PO DAILY@1700 [facility] Last Admin: 04/15/20 18:07 Dose: 2.5 mg Documented by: STROKE Vital Signs/Narrative: Vital Signs Temp Pulse Resp BP Pulse Ox 04/16/20 14:24 98.4 F 97 16 125/83 H 95 Medical Necessity - Tobacco Use Smoking Status: Never smoker Tobacco Use: Non-smoker Assessment/Plan All Active Problems (Last Reviewed 04/10/20 @ 08:28 by Jacquie Johnston) Hypercalcemia (Acute) Frequent falls (Acute) History of non-ST elevation myocardial infarction (NSTEMI) (Resolved 04/2009) Debility (Resolved) Hypotensive episode (Resolved) Pyelonephritis, acute (Resolved) Sepsis (Resolved) Supratherapeutic INR (Resolved) Weakness (Resolved) Essential (primary) hypertension (Ruled-out) #Recurrent acue hypercalcemia calcium was 14.3 on admission,wsa 12.3 yesterday, and is 12 today. continue hyudration with IVF and trend calcium will give IV lasix today #Hypokalemia: K is 3.1. #history of [place]'s disease: on hydrocortisone and florinef. Follow-up with endocrinology on outpatient basis. #Hypertension: on amlodipine #Hyperlipidemia: On statin #CKD stage III: Creatinine is 1.72. Will trend. #History of DVT and PE: On Coumadin #History of renal cancer s/p right partial nephrectomy Previously donated left kidney. Stable. Has CKD stage III as above. DVT prophylaxis: on coumadin. INR is pending today Inpatient E&M: 55622 Subs Hosp L2
--- NOTE | 2020-04-16 15:21 | CASEMGMT ---
Social Work Note Per cab station attendant questions pt has completed HCPOA and LW and provided copies to [facility]. SW reviewed chart. Both HCPOA and LW are available on pt's chart. SW printed off documents and placed hard copies on pt's chart. Yi Damon PLYWOOD FACTORY WORKER, BORING MACHINE OPERATOR HORIZONTAL
[2020-04-16 15:32] LABS: International Normalized Ratio 1.6; Prothrombin Time (Protime)PT. 18.2 SECONDS (11.7-14.9)
[2020-04-16] MEDS: Hydrocortisone 10 MG Tablet PO (17:01)
[2020-04-16] MEDS: Furosemide 40 MG/4 ML Vial IV (17:01)
--- NOTE | 2020-04-16 17:20 | NURSING ---
Student documentation reviewed.
--- NOTE | 2020-04-16 18:00 | NURSING ---
Notified Demarco Hoffman of Ionized calcium level. No new orders.
[2020-04-16] MEDS: Atorvastatin Calcium 10 MG Tablet PO (22:07)
[2020-04-16] MEDS: Gabapentin 600 MG Tablet PO (22:07)
[2020-04-16] MEDS: Fluticasone 0.05% 1 SPRAY NASAL.SRY NASAL (22:07)
[2020-04-17] VITALS (9 sets, daily range): BP systolic 81–131; BP diastolic 54–86; PULSE 91–114; RESP 16–18; TEMP 36.2–36.8; O2SAT 94–99
[2020-04-17] MEDS: 0.9% Normal Saline 1,000 ML 150 ML IV ×2 (00:53→08:57)
[2020-04-17] MEDS: Hydrocortisone 10 MG Tablet 20 MG PO (05:26)
[2020-04-17 05:47] LABS: Anion Gap 7 (5-15); BUN 43 mg/dL (7-18); BUN/Creat Ratio 26.1 RATIO (10-20); Calcium,Total 11.1 mg/dL (8.5-10.1); Chloride 109 mmol/L (98-107); Creatinine, Serum 1.65 mg/dL (0.55-1.02); EST Glomerular Filtration Rate 32 mL/min (>60); Est Glom Filt Rate - Afr Amer 39 mL/min (>60); Estimated Creatinine Clearance 22.58 ml/min; Glucose 71 mg/dL (74-106); Potassium 2.6 mmol/L (3.5-5.1); Sodium Level 145 mmol/L (136-145)
[2020-04-17] MEDS: Potassium Chloride Oral Tablet 20 MEQ 60 MEQ PO (07:00)
--- NOTE | 2020-04-17 08:54 | NURSING ---
This nurse is aware that Student Nurse Viktor obtained Vital Signs, This nurse will recheck vitals again here as bp was low.
[2020-04-17] MEDS: Potassium Chloride 10mEq/100mL 10 MEQ/100 ML IV.SOLN. 100 MEQ IV BOLUS ×4 (09:16→12:54)
[2020-04-17] MEDS: Fludrocortisone Acetate 0.1 MG Tablet PO (09:17)
[2020-04-17] MEDS: Calcitonin-Salmon 1 SPRAY SPRAY NARES (09:18)
--- NOTE | 2020-04-17 09:32 | NURSING ---
Sitting in chair, talking on phone with her daughter. Call light in reach.
--- NOTE | 2020-04-17 09:37 | NURSING ---
this nurse just face to face spoke with Dr. Pal RE: potassium order 40meq x1 po for this morning. Dr. Pal made aware by this nurse that Pt had KDur 60meq po x1 this morning at 0700 given by chief port director and this nurse wanted to know if the still wanted KDur 40meq po that was ordered this morning to be given. Dr. Pal does not want to give the x1 kdur 40meq. Dr. Pal is aware that potassium kriders 1st one hanging is infusing.
[2020-04-17 09:38] LABS: Magnesium 1.8 mg/dL (1.6-2.6)
[2020-04-17] MEDS: Gabapentin 300 MG Capsule PO (11:12)
[2020-04-17] MEDS: amLODIPine 5 MG Tablet PO (11:13)
[2020-04-17] MEDS: Furosemide 40 MG/4 ML Vial IV (11:17)
[2020-04-17] MEDS: 0.9% Saline Lock 10 ML Syringe IV (11:17)
[2020-04-17 13:33] LABS: Anion Gap 8 (5-15); BUN 42 mg/dL (7-18); Chloride 108 mmol/L (98-107); Creatinine, Serum 1.68 mg/dL (0.55-1.02); EST Glomerular Filtration Rate 31 mL/min (>60); Est Glom Filt Rate - Afr Amer 38 mL/min (>60); Estimated Creatinine Clearance 22.18 ml/min; Glucose 182 mg/dL (74-106); Potassium 3.7 mmol/L (3.5-5.1); Sodium Level 142 mmol/L (136-145)
--- NOTE | 2020-04-17 14:23 | DCINST_ITS ---
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 Follow up with your water valve repairer in 1-2 weeks Allergies/Adverse Reactions: Allergies ciprofloxacin [From Cipro] Allergy (Verified 04/10/20 08:29) Rash Penicillins Allergy (Verified 04/10/20 08:29) Rash Medications to take at Discharge L.acidoph,Paracasei, B.lactis [Probiotic] 1 ea PO DAILY 03/24/16 nitroglycerin 0.4 mg sublingual tablet 0.4 mg SUBLINGUAL Q5-15M PRN 05/21/18 Cholecalciferol (Vitamin D3) [Vitamin D3] 1,000 unit PO DAILY 03/20/20 Cyanocobalamin (Vitamin B-12) [B-12] 1,000 mcg PO DAILY 03/20/20 Denosumab [Prolia] 60 mg SQ .[id number] 04/02/20 Dupilumab [Dupixent Pen] 300 mg SQ .[id number] #0 04/04/20 Acetaminophen [Tylenol] 1,000 mg PO Q6H PRN tab 04/08/20 Amlodipine [Norvasc] 5 mg PO DAILY #30 tab 04/08/20 Fludrocortisone Acetate [Florinef] 0.1 mg PO DAILY@0800 #30 tab 04/08/20 Fluticasone 0.05% [Flonase Nasal [place]] 1 spray NASAL QHS #1 nasal.sry 04/08/20 Hydrocortisone [Cortef] 10 mg PO DAILY@1800 #30 tab 04/08/20 Hydrocortisone [Cortef] 20 mg PO DAILY@0600 #60 tab 04/08/20 Menthol/Lanolin/Calamine/Znox [Calmoseptine Ointment] 1 applic TOPICAL 0600,2200 tube 04/08/20 Warfarin [Coumadin] 2.5 mg PO DAILY@1700 #30 tab 04/08/20 Atorvastatin Calcium [Lipitor] 10 mg PO QHS 04/09/20 Primary Care Physician: Amos Fulton MD [Primary Care Provider] - Please follow up with your Primary Care Physician in: 1-2 weeks Test Results: Test results from this visit will be discussed in further detail at your follow- up appointment, if applicable. Proposed Discharge Date: 04/17/20
--- NOTE | 2020-04-17 14:23 | CASEMGMT ---
Addendum entered by Lis Barrios 04/17/20 14:29: Notified that pt is being dc'd today. TC to [place] intake at [facility] to continue care, left voicemail. Original Note: RN CM in to discuss dc planning with patient. [facility], PT and OT. Pt reports she had only started with SN before she was sent to the hospital. Pt has a walker, rollator and w/c in the home. She lives with her who is receiving services from [facility]. Pt wishes to resume HHC and return home. No further needs at this time.
--- NOTE | 2020-04-17 14:25 | PCM.DC.SUM ---
Discharge Date and Diagnosis - Problem List Patient Problems: Active and Suspected Problems (Last Reviewed 04/10/20 @ 08:28 by Jacquie Jonhston) Hypercalcemia (Acute) Date of Admission: 04/14/20 Date of Discharge: 04/17/20 - Primary Discharge Diagnosis Acute Problems: Active Problems (Last Reviewed 04/10/20 @ 08:28 by Jacquie Johnston) Hypercalcemia (Acute on chronic - Secondary Discharge Diagnosis Chronic Problems: Chronic Problems (Last Reviewed 04/10/20 @ 08:28 by Jacquie Johnston) Orthostatic hypotension (Chronic) Recurrent deep vein thrombosis (DVT) (Chronic) History of pulmonary embolism (Chronic) Hyperlipidemia (Chronic) 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 (Chronic) Lemmon disease (Chronic) History of kidney cancer (Chronic) 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 Her hypercalcemia waxes and wanes. She was admitted through the ED on 04/14/2020 with a complaint of elevated calcium levels as well as bilateral lower extremity edema. On admission, calcium was 14.3 with ionized calcium of 8.4. Patient was hydrated aggressively with IV fluids and also placed on IV Lasix to help with hypercalcemia. Calcium levels trended down gradually to a willis of 11. Patient symptoms improved markedly and she felt much better. Of note, patient said her gabapentin had been making her feel lightheaded and so she preferred to stop it as he did not think she needed it. Gabapentin was therefore discontinued. Patient stay was also complicated by hypokalemia which resolved with administration of IV potassium and oral potassium. Patient remained stable and was discharged home on 04/17/2020. She was to continue her oral potassium supplementation that she had been on and follow-up with a PCP for monitoring of her calcium and potassium levels. She was counseled to also hydrate very well at home to help with hypercalcemia. She is to follow-up with her primary care doctor in 1 to 2 weeks. Patient seen and examined prior to discharge. She had no complaints and felt well. Review of stems otherwise negative. Labs and vitals reviewed. Home medication reviewed and reconciled. O/E: Vital Signs Temp Pulse Resp BP Pulse Ox 97.9 F 103 H 16 100/69 97 04/17/20 10:23 04/17/20 10:23 04/17/20 10:23 04/17/20 10:23 04/17/20 10:23 [] General: Alert, Cooperative, No apparent distress HEENT: Atraumatic, PERRLA, EOMI, Normocephalic Oral: Dry Mucosa Neck: Supple, No JVD, Negative Carotid Bruits Lungs: Clear to auscultation, Normal air movement Cardiovascular: Regular rate, Regular Rhythm, Normal S1, Normal S2, No murmurs Abdomen: Bowel Sounds Present, Soft, Non Tender, Non-Distended, No Hepato-splenomegaly Extremities: No edema, Capillary Refill Less than 3 Seconds Skin: No rashes, No breakdown Musculoskeletal: No Tenderness to Palpation of Joints or Extremities Lymphatic: No Cervical, Supraclavicular, or Inguinal Adenopathy Neurological: Cranial nerves II-XII grossly intact, Neuro grossly intact, Motor Exam 5/5 strength throughout Psych/Mental Status: Normal Affect, Appropriate, Alert and oriented to time, place, person, mood and affect Plan is for discharge home today. Patient Problems: Active and Suspected Problems (Last Reviewed 04/10/20 @ 08:28 by Jacquie Johnston) Hypercalcemia (Acute) - Physical Exam Vitals/I&O's: Vital Signs Temp Pulse Resp BP Pulse Ox 97.9 F 103 H 16 100/69 97 04/17/20 10:23 04/17/20 10:23 04/17/20 10:23 04/17/20 10:23 04/17/20 10:23 Oxygen Delivery Method Room Air Weight: 154 lb 12.232 oz Body Mass Index (BMI) 27.5 Intake and Output for Last 24 Hours 04/15/20 04/16/20 04/17/20 23:59 23:59 23:59 Intake Total 5302.5 / 5502.5 3467.5 / 3467.5 2762.5 / 2762.5 Output Total 1650 / 1950 900 / 900 1300 / 1300 Balance 3652.5 / 3552.5 2567.5 / 2567.5 1462.5 / 1462.5 Microbiology Past 72 Hours 04/15/20 01:21 Urine, Clean Catch Urine Culture - Final Mixed Gram Positive Organisms Laboratory Results 04/15/20 06:05: Ionized Calcium 8.4 H 04/16/20 : PT 18.2 H, INR 1.6 04/17/20 04:40: Sodium 145, Potassium 2.6 L*, Chloride 109 H, Carbon Dioxide 29.0, Anion Gap 7, BUN 43 H, Creatinine 1.65 H, Estim Creat Clear Calc 22.58, Est GFR (MDRD) Af Amer 39 L, Est GFR (MDRD) Non-Af 32 L, BUN/Creatinine Ratio 26.1 H, Glucose 71 L, Calcium 11.1 H 04/17/20 04:40: Magnesium 1.8 04/17/20 13:07: Sodium 142, Potassium 3.7, Chloride 108 H, Carbon Dioxide 26.0, Anion Gap 8, BUN 42 H, Creatinine 1.68 H, Estim Creat Clear Calc 22.18, Est GFR (MDRD) Af Amer 38 L, Est GFR (MDRD) Non-Af 31 L, BUN/Creatinine Ratio 25.0 H, Glucose 182 H, Calcium 11.0 H Current Medications Acetaminophen (Acetaminophen 325 Mg Tablet) 650 mg PO Q6H PRN PRN PRN Reason: Pain Score 1-10/Temp > 100.7 F Al Hydroxide/Mg Hydroxide (Mag Hydrox/Al Hydrox/Simeth 30 Ml Udc) 30 ml PO Q6H PRN PRN PRN Reason: Gastric Burning Albuterol Sulfate (Albuterol 2.5 Mg/3 Ml Vial.Neb.) 2.5 mg INHALATION Q2H PRN PRN PRN Reason: Dyspnea, wheezing Amlodipine Besylate (Amlodipine 5 Mg Tablet) 5 mg PO DAILY [facility] Last Admin: 04/17/20 11:13 Dose: 5 mg Documented by: Atorvastatin Calcium (Atorvastatin Calcium 10 Mg Tablet) 10 mg PO QHS [facility] Last Admin: 04/16/20 22:07 Dose: 10 mg Documented by: Calcitonin Provo (Calcitonin-Provo 1 [place]) 1 spray NARES DAILY [facility] Last Admin: 04/17/20 09:18 Dose: 1 spray Documented by: Fludrocortisone Acetate (Fludrocortisone Acetate 0.1 Mg Tablet) 0.1 mg PO DAILY@0800 [facility] Last Admin: 04/17/20 09:17 Dose: 0.1 mg Documented by: Fluticasone Propionate (Fluticasone 0.05% 1 [place] Nasal.Sry) 1 spray NASAL QHS [facility] Last Admin: 04/16/20 22:07 Dose: 1 spray Documented by: Gabapentin (Gabapentin 300 Mg Capsule) 300 mg PO BIDCM [facility] Last Admin: 04/17/20 11:12 Dose: 300 mg Documented by: Guaifenesin (Guaifenesin 10 Ml Udc (200mg/10ml)) 20 ml PO Q4H PRN PRN PRN Reason: COUGH Hydralazine HCl (Hydralazine 20 Mg/Ml Vial) 10 mg IV Q4H PRN PRN PRN Reason: SBP > 160 Hydrocortisone (Hydrocortisone 10 Mg Tablet) 20 mg PO DAILY@0600 [facility] Last Admin: 04/17/20 05:26 Dose: 20 mg Documented by: Hydrocortisone (Hydrocortisone 10 Mg Tablet) 10 mg PO DAILY@1800 [facility] Last Admin: 04/16/20 17:01 Dose: 10 mg Documented by: Sodium Chloride () 1,000 mls @ 150 mls/hr IV .[id number] [facility] Last Admin: 04/17/20 08:57 Dose: 150 mls/hr Documented by: Sodium Chloride () 250 mls @ 15 mls/hr IV .[id number] PRN PRN Reason: Saline Flush Sodium Chloride () 250 mls @ 15 mls/hr IV .[id number] PRN PRN Reason: Additional IVPB Infusion Magnesium Hydroxide (Magnesium Hydroxide 30 Ml Udc) 30 ml PO DAILY PRN PRN PRN Reason: Constipation Melatonin (Melatonin 3 Mg Tablet) 3 mg PO QHS PRN PRN PRN Reason: INSOMNIA Ondansetron HCl (Ondansetron 4 Mg/2 Ml Vial) 4 mg IV Q8H PRN PRN PRN Reason: NAUSEA/VOMITING Potassium Chloride (Potassium Chloride Oral Tablet 20 Meq) 20 meq PO BIDSSM REHAB Prochlorperazine Edisylate (Prochlorperazine 10 Mg/2 Ml Vial) 5 mg IV Q4H PRN PRN PRN Reason: Breakthrough nausea/vomiting Psyllium Hydrophilic Mucilloid (Psyllium 1 Packet) 1 packet PO DAILY PRN PRN PRN Reason: Constipation Senna/Docusate Sodium (Senna/Docusate Sodium 1 Tablet) 2 tablet PO BID PRN PRN PRN Reason: Constipation Sodium Chloride (0.9% Saline Lock 10 Ml Syringe) 10 - 40 ml IV UD PRN PRN Reason: SALINE FLUSH Last Admin: 04/17/20 11:17 Dose: 10 ml Documented by: Throat Lozenges (Benzocaine/Menthol 1 Lozenge) 1 lozenge MUCOUS MEM Q2H PRN PRN PRN Reason: SORE THROAT Warfarin Sodium (Warfarin 2.5 Mg Tablet) 2.5 mg PO DAILY@1700 [facility] Last Admin: 04/16/20 17:02 Dose: 2.5 mg Documented by: Discharge Diet: Low fat/ Low Cholesterol Discharge Activity: Return to Normal Activity Weight Bearing Status: Weight bearing as tolerated Call your doctor if you observe: Fever of 101 or Higher Home Medications: Medications to take at Discharge L.acidoph,Paracasei, B.lactis [Probiotic] 1 ea PO DAILY 03/24/16 nitroglycerin 0.4 mg sublingual tablet 0.4 mg SUBLINGUAL Q5-15M PRN 05/21/18 Cholecalciferol (Vitamin D3) [Vitamin D3] 1,000 unit PO DAILY 03/20/20 Cyanocobalamin (Vitamin B-12) [B-12] 1,000 mcg PO DAILY 03/20/20 Denosumab [Prolia] 60 mg [id number] 04/02/20 Dupilumab [Dupixent Pen] 300 mg SQ .[id number] #0 04/04/20 Acetaminophen [Tylenol] 1,000 mg PO Q6H PRN tab 04/08/20 Amlodipine [Norvasc] 5 mg PO DAILY #30 tab 04/08/20 Fludrocortisone Acetate [Florinef] 0.1 mg PO DAILY@0800 #30 tab 04/08/20 Fluticasone 0.05% [Flonase Nasal [place]] 1 spray NASAL QHS #1 nasal.sry 04/08/20 Hydrocortisone [Cortef] 10 mg PO DAILY@1800 #30 tab 04/08/20 Hydrocortisone [Cortef] 20 mg PO DAILY@0600 #60 tab 04/08/20 Menthol/Lanolin/Calamine/Znox [Calmoseptine Ointment] 1 applic TOPICAL 0600,2200 tube 04/08/20 Warfarin [Coumadin] 2.5 mg PO DAILY@1700 #30 tab 04/08/20 Atorvastatin Calcium [Lipitor] 10 mg PO QHS 04/09/20 Primary Care Physician: Amos Fulton MD [Primary Care Provider] - Please follow up with your Primary Care Physician in: 1-2 weeks Patient Instructions: Hypercalcemia Disposition: Home Minutes spent on discharge:: 35 Patient Condition:: Stable Medical Necessity - Tobacco Use Smoking Status: Never smoker Tobacco Use: Non-smoker Meaningful Use Info Meaningful Use Diagnoses (Choose all that apply): None applicable Inpatient E&M: [id number] [facility]
[2020-04-20 13:00] LABS: Vitamin D 1,25-Dihydroxy 286.2 pg/mL (19.9-79.3)
== END 2020-04-17 16:47 | disposition home health service (06) ==
LOC: ED 18:49 → MS3 19:52
PROVIDERS: Admitting Provider Family Medicine; Emergency Provider Emergency Medicine; PCP Internal Medicine; Visit Provider Student in an Organized Health Care Education/Training Program
DX: E83.52 Hypercalcemia (principal); D68.8 Other specified coagulation defects; E27.1 Primary adrenocortical insufficiency; I12.9 Hypertensive chronic kidney disease with stage 1 through stage 4 chronic kidney disease, or unspecified chronic kidney disease; E87.6 Hypokalemia; E78.5 Hyperlipidemia, unspecified; N18.30 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, stage 3 unspecified; Z85.528 Personal history of other malignant neoplasm of kidney; Z86.711 Personal history of pulmonary embolism; I25.2 Old myocardial infarction; Z86.718 Personal history of other venous thrombosis and embolism; Z79.01 Long term (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; Z79.899 Other long term (current) drug therapy; Z79.51 Long term (current) use of inhaled steroids; Z79.52 Long term (current) use of systemic steroids; Z90.5 Acquired absence of kidney
CPT/HCPCS: 36415; 80048; 80053; 80076; 81001; 82306; 82330; 82340; 82652; 83735; 83970; 84100; 85025; 85610; 87077; 87086; 87088; 93005; 96361; 96374; 96376; 97110; 97162; 97166; 97530; 97535; 99218; 99251; 99285; J7030; A4216; G0378; G0463; J1940

== ENCOUNTER 2020-04-18 12:41 | Emergency (ER) | payer MEDICARE, SELFPAY ==
[2020-04-14 21:16] VITALS: BMI 27.5
[2020-04-18 12:43] VITALS: BP 83/48; PULSE 111; RESP 18; TEMP 36.2; O2SAT 98; BMI 26.5
--- NOTE | 2020-04-18 13:14 | CT_ITS ---
STUDY: CT BRAIN WITHOUT CONTRAST REASON FOR EXAM: Female, 75 years old. Head injury on coumadin RADIATION DOSAGE (If Supplied By Facility): CTDIvol = ( 44.99 ) mGy, DLP = ( 745.49 ) mGycm TECHNIQUE: Transaxial CT imaging of the brain was performed without administration of intravenous contrast material. Individualized dose optimization techniques were used for this CT. COMPARISON: 04/02/2020 FINDINGS: Normal soft tissue structures. Normal calvarium. There is mild cerebral atrophy with widening of the extra-axial spaces and ventricular dilatation. Normal white matter tracts of the cerebral hemispheres. Normal basal ganglia and thalami. Normal brainstem. Normal cerebellum. There is no intracranial hemorrhage. There are no findings of an acute ischemic infarction. There is minimal opacification of the ethmoid and visualized maxillary sinuses consistent with a history of sinusitis. CT/Brain/Head without Contrast IMPRESSION: Chronic involutional changes of the brain. Electronically Signed: Jeniffer Villalobos MD at 13:55 EST Tel , Service support ,
--- NOTE | 2020-04-18 13:17 | ED.DCSUM_ITS ---
- ER Visit Summary Date of Service: 04/18/20 Chief Complaint: Fall with head injury History of Present Illness: The patient is a 75 F that Coumadin secondary to DVT and PEs. 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 She was just hospitalized recently for hypercalcemia. Today she was in her kitchen feeling fine leaned over lost her balance whenever it struck the back of her right head. No LOC. She denies other complaints. Physical Examination: Older female no acute distress awake alert. Daughter at bedside. Vital signs show a low blood pressure 83/48. Heart rate 111. Pulse ox 98%. H EENT exam pupils round reactive light no facial trauma. Minor contusion right lower posterior scalp. No large hematoma no laceration. C- spine nontender. Normal range of motion to her neck. Lungs clear to auscultation bilaterally. Heart regular rhythm no murmur rate about 100. Chest wall nontender. Abdomen soft nontender. Pelvic girdle intact. Patient moving all four extremities. 1+ pitting edema both lower extremities. Neurologically she is awake alert with no focal motor deficit. She answers questions and follows commands. NIH score is zero. GCS of 15. Back nontender. Test Results: Scan of her brain without contrast is read by the radiologist and reviewed by me shows no acute abnormality. No intracranial bleed. Repeat exam patient is doing well at 3:36 PM. Nurses will ambulate the patient prior to discharge make sure she walks well. Emergency Department Course and Treatment: Older female hypotension with a history of orthostatic hypotension fell and hit her head. She is on Coumadin she will receive a CAT scan. Will eventually ambulate the patient. Treatment Plan: Follow-up with your doctor. Hold the blood pressure medication. Return if worse. Disposition: Discharge Impression: Fall Acute hypotension History of orthostatic hypotension Closed head injury Anticoagulated on Coumadin History of DVT and PE This note was generated with [employer] dictation software. It may contain incorrect words, spelling, and punctuation that were not noted in review of the chart prior to signing ED Disposition - Plan for ED Patient: Referrals: Amos Fulton MD [Primary Care Provider] -
[2020-04-18 13:25] VITALS: BP 122/84; PULSE 90; RESP 16
--- NOTE | 2020-04-18 15:38 | ED.DEP ---
ED Disposition - Plan for ED Patient: Disposition: Home or Assisted Living Instructions: ED Head Injury (Adult) Referrals: Amos Fulton MD [Primary Care Provider] - 1-2 Days if not improving Additional Instructions: Return if severe headache, intractable vomiting or not acting right. These are signs of the delayed bleeding in your brain which is unlikely. Tylenol for any pain. I would strongly consider holding your blood pressure medication the Norvasc because her pressures been running low. Check your blood pressure at least twice a day and go over this with your primary care physician.
[2020-04-18 15:51] VITALS: BP 124/84; PULSE 97; RESP 16
== END 2020-04-18 15:52 | disposition home or self-care (01) ==
PROVIDERS: Emergency Provider Emergency Medicine; PCP Internal Medicine
DX: S00.03XA Contusion of scalp, initial encounter (principal); I95.9 Hypotension, unspecified; Z86.718 Personal history of other venous thrombosis and embolism; Z86.711 Personal history of pulmonary embolism; Z79.01 Long term (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; Z79.899 Other long term (current) drug therapy; W18.30XA Fall on same level, unspecified, initial encounter; Y93.89 Activity, other specified; Y92.000 Kitchen of unspecified non-institutional (private) residence as the place of occurrence of the external cause; Y99.8 Other external cause status
CPT/HCPCS: 70450; 99282

== ENCOUNTER 2020-04-22 12:46 | Outpatient (RCR) | payer MEDICARE, SELFPAY ==
[2020-04-21 13:11] LABS: International Normalized Ratio 1.9; Prothrombin Time (Protime)PT. 21.6 SECONDS (11.7-14.9)
[2020-04-22 13:37] LABS: Absolute Lymphocyte Count 0.66 X10^3/uL (0.83-4.51); Absolute Neutrophil Count 7.6 X10^3/uL (2.0-7.7); Basophil# 0.02 X10^3/uL; Basophil% 0.2 % (0-1); Eosinophil# 0.12 X10^3/uL; Eosinophils% 1.4 % (0-5); Hematocrit 33.1 % (37-47); Lymphocyte # 0.66 X10^3/ul (4.0); Lymphocyte % 7.6 % (19-41); Mean Corp Hgb Conc 33.2 g/dL (32-36); Mean Corpuscular Hgb 29.8 pg (27.0-32.0); Mean Corpuscular Volume 89.7 fL (81-99); Mean Platelet Vol. 10.8 fl (6.2-12.0); Monocyte# 0.16 X10^3/uL; Monocyte% 1.8 % (0-10); NRBC Flagged by Analyzer 0 % (0-5); Neutrophil # 7.63 X10^3/uL (2.7-7.7); Platelet Count 342 K/mm3 (150-450); RBC Distribution Width SD 48.8 fl (35.1-43.9); Red Blood Count 3.69 M/mm3 (4.2-5.4); White Blood Count 8.7 K/mm3 (4.4-11.0)
[2020-04-22 13:47] LABS: Anion Gap 7 (5-15); BUN 35 mg/dL (7-18); Calcium,Total 13.8 mg/dL (8.5-10.1); Chloride 101 mmol/L (98-107); Creatinine, Serum 1.94 mg/dL (0.55-1.02); EST Glomerular Filtration Rate 27 mL/min (>60); Est Glom Filt Rate - Afr Amer 32 mL/min (>60); Glucose 173 mg/dL (74-106); Potassium 2.6 mmol/L (3.5-5.1); Sodium Level 140 mmol/L (136-145)
== END 2020-04-22 18:00 | disposition home or self-care (01) ==
LOC: HHLAB 12:46
PROVIDERS: PCP Internal Medicine; Referring Provider Internal Medicine; Visit Provider Internal Medicine
DX: E83.52 Hypercalcemia (principal); I95.9 Hypotension, unspecified; E27.1 Primary adrenocortical insufficiency
CPT/HCPCS: 80048; 85025; 85610

== ENCOUNTER 2020-04-22 19:48 | Inpatient (IN) | payer MEDICARE, SELFPAY ==
[2020-04-22 19:50] VITALS: BP 130/81; PULSE 101; RESP 16; TEMP 35.9; O2SAT 96; BMI 23.6
[2020-04-22 20:09] VITALS: BP 143/90; PULSE 101; RESP 18; O2SAT 97
--- NOTE | 2020-04-22 21:11 | EKG12_ITS ---
Test Reason : WEAKNESS Blood Pressure : / mmHG Vent. Rate : 091 BPM Atrial Rate : 091 BPM P-R Int : 158 ms QRS Dur : 100 ms QT Int : 390 ms P-R-T Axes : 034 -27 -06 degrees QTc Int : 479 ms Normal sinus rhythm with sinus arrhythmia Cannot rule out Anterior infarct , age undetermined Nonspecific ST and T wave abnormality Abnormal ECG Confirmed by YESENIA ZELAYA, ALBERTO ([id number]), features editor AMA PETERSEN ([id number]) on 04/27/2020 2:32:02 PM Referred By: Confirmed By:ALBERTO PATTERSON MD
[2020-04-22 21:26] LABS: Absolute Lymphocyte Count 1.07 X10^3/uL (0.83-4.51); Absolute Neutrophil Count 7.9 X10^3/uL (2.0-7.7); Basophil# 0.02 X10^3/uL; Basophil% 0.2 % (0-1); Eosinophil# 0.54 X10^3/uL; Eosinophils% 5.5 % (0-5); Hematocrit 34.8 % (37-47); Hemoglobin 11.3 g/dL (12.0-15.0); Lymphocyte # 1.07 X10^3/ul (4.0); Lymphocyte % 10.8 % (19-41); Mean Corp Hgb Conc 32.5 g/dL (32-36); Mean Corpuscular Hgb 29.7 pg (27.0-32.0); Mean Corpuscular Volume 91.3 fL (81-99); Mean Platelet Vol. 10.8 fl (6.2-12.0); Monocyte# 0.22 X10^3/uL; Monocyte% 2.2 % (0-10); NRBC Flagged by Analyzer 0 % (0-5); Neutrophil # 7.92 X10^3/uL (2.7-7.7); Neutrophil % 80.1 % (47-70); Platelet Count 367 K/mm3 (150-450); RBC Distribution Width CV 14.9 % (11.6-14.6); RBC Distribution Width SD 49.9 fl (35.1-43.9); Red Blood Count 3.81 M/mm3 (4.2-5.4); White Blood Count 9.9 K/mm3 (4.4-11.0)
[2020-04-22 21:45] LABS: Anion Gap 5 (5-15); BUN 35 mg/dL (7-18); BUN/Creat Ratio 19.2 RATIO (10-20); Chloride 101 mmol/L (98-107); Creatinine, Serum 1.82 mg/dL (0.55-1.02); EST Glomerular Filtration Rate 29 mL/min (>60); Est Glom Filt Rate - Afr Amer 35 mL/min (>60); Estimated Creatinine Clearance 20.47 ml/min; Glucose 91 mg/dL (74-106); Potassium 2.4 mmol/L (3.5-5.1); Sodium Level 140 mmol/L (136-145)
--- NOTE | 2020-04-22 21:47 | RAD_ITS ---
STUDY: X-RAY CHEST REASON FOR EXAM: Female, 75 years old. Shortness of breath TECHNIQUE: Frontal view of the chest COMPARISON: 04/02/20 FINDINGS: The lungs are clear. There are no pleural effusions. There is no pneumothorax. The heart is normal in size. The visualized osseous structures are within normal limits. RAD/Chest 1 View (Portable) IMPRESSION: No acute thoracic pathology. Electronically Signed: Wily Vernon MD at 22:08 EST Tel , Service support ,
--- NOTE | 2020-04-22 21:50 | CT_ITS ---
STUDY: CT BRAIN WITHOUT CONTRAST REASON FOR EXAM: Female, 75 years old. Fall RADIATION DOSAGE (If Supplied By Facility): CTDIvol = ( 44.99 ) mGy, DLP = ( 762.36 ) mGycm TECHNIQUE: Transaxial CT imaging of the brain was performed without administration of intravenous contrast material. Individualized dose optimization techniques were used for this CT. COMPARISON: 04/18/20 FINDINGS: There is no acute bleed or infarct. There are stable mild chronic ischemic changes. The ventricles are normal in configuration. There is no hydrocephalus. The visualized paranasal sinuses are clear. The mastoid air cells are well aerated. There is no skull fracture. CT/Brain/Head without Contrast IMPRESSION: No acute intracranial abnormality. Stable mild chronic ischemic changes. Electronically Signed: Wily Vernon MD at 22:24 EST Tel , Service support ,
[2020-04-22 22:22] VITALS: BP 143/90; PULSE 91; RESP 21; O2SAT 95
--- NOTE | 2020-04-22 22:52 | ED.DCSUM_ITS ---
- ER Visit Summary Date of Service: 04/22/20 Chief Complaint: Abnormal labs History of Present Illness: The patient is a 75 F presenting to the ED due to abnormal labs. Patient has fatigue and weakness over the past several weeks. She states over the past couple of days it has been progressively worsening. She had outpatient labs today which showed a potassium of 2.6. She had a fall last Monday and hit her head. She did not lose consciousness. She denies syncope. She denies chest pain or shortness of breath. She has no known exposure to Covid. She has nausea with no vomiting. She denies other complaints. Physical Examination: Vitals are stable. Patient is afebrile. Alert no acute distress. HEENT exam dry mucous membranes Neck is supple. Lungs are clear and equal bilaterally. Heart is regular rate and rhythm. Abdomen is soft nontender nondistended. Extremities are unremarkable. Skin is warm and dry. No focal neurologic deficit. Remainder of exam is unremarkable. Emergency Department Course and Treatment: EKG is sinus rhythm rate of 91, similar to previous. CBC shows hemoglobin 11.3. Chemistries show potassium 2.4, BUN 35, creatinine 1.82. Troponin 0.039. Calcium 14. Covid is negative. Chest x-ray shows no acute process. CT head shows no acute process. INR is pending. Patient was given KCl IV. Will discuss with hospitalist for admission. Disposition: Admission Impression: Hypokalemia, hypercalcemia This note was generated with [employer] dictation software. It may contain incorrect words, spelling, and punctuation that were not noted in review of the chart prior to signing ED Disposition - Plan for ED Patient: Referrals: Amos Fulton MD [Primary Care Provider] -
[2020-04-22 22:59] LABS: International Normalized Ratio 2.5; Prothrombin Time (Protime)PT. 26.3 SECONDS (11.7-14.9)
--- NOTE | 2020-04-22 23:05 | PCM.HP.STD ---
Problem List (1) Hypercalcemia Status: Chronic (2) Orthostatic hypotension Status: Chronic (3) Recurrent deep vein thrombosis (DVT) Status: Chronic (4) History of pulmonary embolism Status: Chronic (5) Hyperlipidemia Status: Chronic Qualifiers: Hyperlipidemia type: unspecified Qualified Code(s): E78.5 - Hyperlipidemia, unspecified (6) History of non-ST elevation myocardial infarction (NSTEMI) Status: Resolved Comment: possible coronary embolism (7) 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 Status: Chronic Qualifiers: 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 stage: stage 3 (moderate) 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 stage 3 subtype: unspecified whether 3a or 3b Qualified Code(s): N18.30 - 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, stage 3 unspecified (8) [place] disease Status: Chronic (9) History of kidney cancer Status: Chronic (10) 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 Reportedly home health nurse check patient's labs. Her potassium was 2.6 and a calcium was 13 so patient was sent to the emergency department. Associated for symptoms is fatigue and jitteriness. Further patient is nauseous. Patient was recently admitted on 04/14/2020 and discharged on 04/17/2020 for hypercalcemia. She was discharged home on intranasal calcitonin. However her outpatient pharmacy did not have intranasal calcitonin that she could obtain. Past Medical History Past Medical History (Chronic Problems): Chronic Problems (Last Reviewed 04/22/20 @ 23:[address] Jace Lantigua MD) Hypercalcemia (Chronic) Orthostatic hypotension (Chronic) Recurrent deep vein thrombosis (DVT) (Chronic) History of pulmonary embolism (Chronic) Hyperlipidemia (Chronic) 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 (Chronic) Kyler disease (Chronic) History of kidney cancer (Chronic) FPC (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 (Chronic) Frequent falls (Chronic) Medical History: Medical History (Last Reviewed 04/23/20 @ 02:[address] 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 History of kidney cancer (Chronic) Z85.528 Frequent falls (Chronic) R29.6 Atopic dermatitis L20.9 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, stage 3 N18.3 Cystocele with rectocele N81.10, N81.6 size 4 ring with support Elevated serum creatinine R79.89 History of DVT (deep vein thrombosis) Z86.718 Hypercalcemia E83.52 Hypokalemia E87.6 Osteopenia determined by x-ray M85.80 Acute electrocardiogram changes R94.31 Acute prerenal azotemia N19 Closed head injury Onset Date: 03/20/20 S09.90XA Hypoglycemia Onset Date: 03/20/20 E16.2 Hypotension I95.9 Pyelonephritis N12 Essential (primary) hypertension (Ruled-out) I10 Allergies ciprofloxacin [From Cipro] Allergy (Verified 04/22/20 19:54) Rash Penicillins Allergy (Verified 04/22/20 19:54) Rash Home Medications: Ambulatory Orders Medication Instructions Recorded L.acidoph,Paracasei, B.lactis 1 ea PO DAILY 03/24/16 [Probiotic] nitroglycerin 0.4 mg sublingual 0.4 mg SUBLINGUAL Q5-15M PRN 05/21/18 tablet Cholecalciferol (Vitamin D3) 1,000 unit PO DAILY 03/20/20 [Vitamin D3] Cyanocobalamin (Vitamin B-12) 1,000 mcg PO DAILY 03/20/20 [B-12] Dupilumab [Dupixent Pen] 300 mg SQ [id number] #0 04/04/20 Acetaminophen [Tylenol] 1,000 mg PO Q6H PRN tab 04/08/20 Fluticasone 0.05% [Flonase Nasal 1 spray NASAL QHS #1 nasal.sry 04/08/20 [place]] Hydrocortisone [Cortef] 10 mg PO DAILY@1800 #30 tab 04/08/20 Hydrocortisone [Cortef] 20 mg PO DAILY@0600 #60 tab 04/08/20 Menthol/Lanolin/Calamine/Znox 1 applic TOPICAL 0600,2200 tube 04/08/20 [Calmoseptine Ointment] Warfarin [Coumadin] 2.5 mg PO DAILY@1700 #30 tab 04/08/20 Atorvastatin Calcium [Lipitor] 10 mg PO QHS 04/09/20 Florinef 0.1 mg PO DAILY 04/23/20 Surgical History: Surgical History (Last Reviewed 04/23/20 @ 02:[address] Jace Lantigua MD) H/O partial nephrectomy Onset Date: 2009 Z90.5 right partial secondary to renal tumor H/O total cystectomy Z90.6 breast right History of bladder repair surgery Z98.890 20+ years ago History of left heart catheterization Onset Date: 04/2009 Z98.890 norm coronary arteries History of left nephrectomy Onset Date: 2000 Z90.5 donated to 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 history Smoking Status: Never smoker Tobacco Use: Non-smoker - *Family History Maternal Family History: Family History (Last Reviewed 04/23/20 @ 00:31 by Lori Perez) Father CVA (cerebral vascular accident) Mother Myocardial infarction, Onset Age: 87 History Items: High Cholesterol, Heart Disease, Hypertension Paternal Family History: Family History (Last Reviewed 04/23/20 @ 00:31 by Lori Perez) Father CVA (cerebral vascular accident) Mother Myocardial infarction, Onset Age: 87 History Items: Stroke Sibling Family History: Family History (Last Reviewed 04/23/20 @ 00:31 by Lori Perez) Father CVA (cerebral vascular accident) Mother Myocardial infarction, Onset Age: 87 History Items: Renal Disease Review of Systems Constitutional: Reports: Weakness, Fatigue. Denies: Chills, Fever, Weight Change HEENT: Denies: Head Aches, Sinus Congestion, Sinus Drainage Cardiovascular: Denies: Chest Pain, Palpitations Respiratory: Denies: Cough, Shortness of breath at rest, Sputum production Gastrointestinal: Reports: Nausea. Denies: Abdominal Pain, Vomiting Genitourinary: Denies: Dysuria Musculoskeletal: Denies: Joint Pain, Joint Tenderness Skin: Denies: Rash, Wounds Neurological: Denies: Numbness, Tingling, Focal weakness Psychiatric: Denies: Anxiety, Depression, Homicidal Ideations, Suicidal Ideations Hematologic/ Lymphatic: Denies: Easy Bruising, Easy Bleeding VTE Information - Inpt Only VTE Present on Admission: No VTE Mechan Device Prophylaxis: None VTE Pharm Prophylaxis ordered?: No Reason prophylaxis not ordered:: Treatment Not Indicated - Home Coumadin continued - Physical Exam Vitals/I&O's: Vital Signs Temp Pulse Resp BP Pulse Ox 96.6 F L 91 21 H 143/90 H 95 04/22/20 19:50 04/22/20 22:22 04/22/20 22:22 04/22/20 22:22 04/22/20 22:22 Oxygen Delivery Method Room Air Weight: 58.513 kg Body Mass Index (BMI) 23.6 General: Alert, Oriented x3, Cooperative HEENT: Atraumatic, PERRLA, EOMI, Normocephalic Neck: Supple, No JVD, Negative Carotid Bruits Lungs: Clear to auscultation, Normal air movement Cardiovascular: Regular rate, No murmurs Abdomen: Bowel Sounds Present, Soft, Non Tender Extremities: Capillary Refill Less than 3 Seconds, Edema - Bilateral lower extremities ; left arm and left forearm. Skin: No rashes, No breakdown Musculoskeletal: No Tenderness to Palpation of Joints or Extremities Neurological: Cranial nerves II-XII grossly intact Psych/Mental Status: Normal Affect, Appropriate Microbiology Past 72 Hours 04/22/20 21:35 Mucosa - Nose SARS-CoV-2 Antigen (Rapid) - Final Laboratory Results 04/22/20 20:17: WBC 9.9, RBC 3.81 L, Hgb 11.3 L, Hct 34.8 L, MCV 91.3, MCH 29.7, MCHC 32.5, RDW Std Deviation 49.9 H, RDW Coeff of Slava 14.9 H, Plt Count 367, MPV 10.8, Immature Gran % (Auto) 1.200 H, Neut % (Auto) 80.1 H, Lymph % (Auto) 10.8 L, [place] % (Auto) 2.2, Eos % (Auto) 5.5 H, Baso % (Auto) 0.2, Absolute Neuts (auto) 7.9 H, Absolute Lymphs (auto) 1.07, Nucleated RBC % 0 04/22/20 20:17: Sodium 140, Potassium 2.4 L*, Chloride 101, Carbon Dioxide 34.0 H, Anion Gap 5, BUN 35 H, Creatinine 1.82 H, Estim Creat Clear Calc 20.47, Est GFR (MDRD) Af Amer 35 L, Est GFR (MDRD) Non-Af 29 L, BUN/Creatinine Ratio 19.2, Glucose 91, Calcium 14.0 H*, Troponin I 0.039 04/22/20 20:17: PT 26.3 H, INR 2.5 Current Medications Potassium Chloride () 10 meq in 100 mls @ 100 mls/hr IV BOLUS Q1H KARLY Stop: 04/23/20 02:59 Assessment/Plan All Active Problems (Last Reviewed 04/22/20 @ 23:[address] Jace Lantigua MD) History of non-ST elevation myocardial infarction (NSTEMI) (Resolved 04/2009) Debility (Resolved) Hypotensive episode (Resolved) Pyelonephritis, acute (Resolved) Sepsis (Resolved) Supratherapeutic INR (Resolved) Weakness (Resolved) Essential (primary) hypertension (Ruled-out) The patient is a 75 year old F with a significant history of CKD stage III; non-STEMI; atopic dermatitis on dupilumab; and hypercalcemia who presents emergency department with abnormal labs of hypokalemia and hypocalcemia which was confirmed at the emergency department. Acute Hypercalcemia Received normal saline bolus in the emergency department. Cautious use of IV fluids since patient is edematous. Normal saline 75 mL/h ordered. Potassium and is being replaced. If potassium improved consider giving patient Lasix. Stop home vitamin D since previous labs showed elevated vitamin D level. Hypokalemia Received potassium IV at emergency department. Potassium 40 mg p.o. twice daily ordered. 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 This is her 4th fall in 5 months We will check vitamin B12. PT and OT to work with patient Kyler's disease/orthostatic hypotension Solu-Cortef continued History of DVT Coumadin continued. DVT prophylaxis Continue home Coumadin for history of DVT. Inpatient E&M: 83412 Init Hosp L3
[2020-04-22] MEDS: Potassium Chloride 10mEq/100mL 10 MEQ/100 ML IV.SOLN. 100 MEQ IV BOLUS (23:57)
[2020-04-23] VITALS (14 sets, daily range): BP systolic 109–149; BP diastolic 66–89; PULSE 64–118; RESP 15–16; TEMP 36.1–37.3; O2SAT 92–98; BMI 27.6
[2020-04-23] MEDS: Potassium Chloride 10mEq/100mL 10 MEQ/100 ML IV.SOLN. 100 MEQ IV BOLUS ×3 (01:06→03:26)
[2020-04-23] MEDS: 0.9% Normal Saline 1,000 ML 75 ML IV (01:07)
[2020-04-23] MEDS: Potassium Chloride Oral Tablet 20 MEQ 40 MEQ PO ×3 (01:21→18:15)
[2020-04-23 01:34] LABS: Mucous, Urine 0 SEEN /hpf (<or=2+)
[2020-04-23 01:35] LABS: Color, Urine Yellow (Yellow); Glucose, Dipstick Normal (Normal); Ketone-Dipstick Negative (Negative); Leukocyte Esterase-Dipstick 500 /ul (Negative); Nitrite-Dipstick Negative (Negative); Occult Blood-Urine 150 /ul (Negative); Protein-Dipstick 15 mg/dl (Negative); Urine Bilirubin Dipstick Negative (Negative); Urine Clarity Clear (Clear); Urine Urobilinogen Normal (Normal)
[2020-04-23] MEDS: Jantoven 2 MG Tablet PO (01:35)
[2020-04-23 01:43] LABS: Bacteria RARE /hpf (None Seen); Red Blood Cells-Urine 5-10 SEEN /hpf (0-5); Squamous Epithelial Cells - UA 0-5 SEEN /hpf (5-10); White Blood Cells 10-25 SEEN /hpf (0-5)
[2020-04-23 05:58] LABS: Absolute Lymphocyte Count 1.24 X10^3/uL (0.83-4.51); Absolute Neutrophil Count 8.5 X10^3/uL (2.0-7.7); Basophil# 0.03 X10^3/uL; Basophil% 0.3 % (0-1); Eosinophil# 0.51 X10^3/uL; Eosinophils% 4.7 % (0-5); Hematocrit 35.5 % (37-47); Hemoglobin 11.5 g/dL (12.0-15.0); Lymphocyte # 1.24 X10^3/ul (4.0); Lymphocyte % 11.5 % (19-41); Mean Corp Hgb Conc 32.4 g/dL (32-36); Mean Corpuscular Hgb 29.8 pg (27.0-32.0); Mean Platelet Vol. 10.5 fl (6.2-12.0); Monocyte# 0.31 X10^3/uL; Monocyte% 2.9 % (0-10); NRBC Flagged by Analyzer 0 % (0-5); Neutrophil # 8.54 X10^3/uL (2.7-7.7); Neutrophil % 79.6 % (47-70); Platelet Count 339 K/mm3 (150-450); RBC Distribution Width CV 15.4 % (11.6-14.6); RBC Distribution Width SD 50.9 fl (35.1-43.9); Red Blood Count 3.86 M/mm3 (4.2-5.4); White Blood Count 10.7 K/mm3 (4.4-11.0)
[2020-04-23] MEDS: Menthol/Lanolin/Calamine/Znox 113 GM Tube 1 APPLIC TOPICAL ×2 (06:06→21:41)
[2020-04-23] MEDS: Hydrocortisone 10 MG Tablet 20 MG PO (06:06)
[2020-04-23 06:17] LABS: International Normalized Ratio 2.3; Prothrombin Time (Protime)PT. 25.2 SECONDS (11.7-14.9)
[2020-04-23 06:32] LABS: Anion Gap 4 (5-15); BUN 33 mg/dL (7-18); BUN/Creat Ratio 18.8 RATIO (10-20); Calcium,Total 12.5 mg/dL (8.5-10.1); Chloride 106 mmol/L (98-107); Creatinine, Serum 1.76 mg/dL (0.55-1.02); EST Glomerular Filtration Rate 30 mL/min (>60); Est Glom Filt Rate - Afr Amer 36 mL/min (>60); Estimated Creatinine Clearance 21.17 ml/min; Glucose 74 mg/dL (74-106); Potassium 3.3 mmol/L (3.5-5.1); Sodium Level 138 mmol/L (136-145)
[2020-04-23 08:39] LABS: Vitamin B12 > 2000 pg/mL (211-911)
[2020-04-23] MEDS: Cyanocobalamin 500 MCG Tablet 1000 MCG PO (09:50)
--- NOTE | 2020-04-23 15:50 | CASEMGMT ---
ROSS CM readmission note: patient was admitted 04/02/20-04/04/20 for syncope hypercalcemia. Patient was discharged to [facility] with [facility] SN, PT and OT. Pt returned on 04/09/20 and 04/14/20 for observation stays and inpatient on 04/22/20 for hypercalcemia. Pt is still current with [facility]. Per ER note, patient was unable to obtain her intranasal calcitonin. CM to continue to follow for safe dc.
--- NOTE | 2020-04-23 16:16 | US_ITS ---
STUDY: RENAL ULTRASOUND - COMPLETE REASON FOR EXAM: Female, 75 years old. Renal failure. History of left nephrectomy. TECHNIQUE: Ultrasound evaluation of the kidneys was performed with real-time and static moore-scale imaging. COMPARISON: None available. FINDINGS: RIGHT KIDNEY: Normal location of the right kidney, which is normal in size. The right kidney measures 12.5 cm. There is a normal cortex of the right kidney. There is a 1.7 x 1.3 cm simple cyst in the right kidney. There are no right renal calculi. There is no right hydronephrosis. DISTAL RIGHT URETER: There is non-visualization of the distal right ureter. There is no demonstrated right ureterovesical junction calculus. There is a visualized right ureteral jet. LEFT KIDNEY: The patient is status post left nephrectomy. BLADDER: The urinary bladder is partially distended and appears unremarkable. US/Kidney and Bladder IMPRESSION: Simple cyst in the right kidney. Otherwise, normal sonographic appearance of the right kidney. No right hydronephrosis. Status post left nephrectomy. Electronically Signed: Wily Vernon MD at 17:11 EST Tel , Service support ,
--- NOTE | 2020-04-23 16:19 | CON.PCM_ITS ---
Consultation - Renal 04/23/20 PCP/ Referring MD: Requesting physician: [] Primary care physician: Dr. 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 She has been hospitalized multiple times since February 2020 for syncope, hypotension, hypercalcemia. Her creatinine was 0.9 eGFR 40cc/minin February 2020 progressed to Creatinine 1.4, 1.75, to 1.95 with eGFR 20cc/min. She has been treated with iv fluids, lasix for hypercalcemia with calcium level of 11-14. Vitamin D 25 level was 37, vit D 1.25 121 on 04/08 to 286 on 04/15/20 with serum calcium of 14. She has no prior history of hypercalcemia in the past. Last normal calcium was in February 2020 at 8.8 to 9.0. Albumin 1.9 on 04/17/20. She has been in and out of the hospital multiple times that it is hard to determine if/when she was on calcium supplements and/or vit D supplements or if she has been taking her hormonal therapy for Addisons disease with hypotensive episodes during her hospitalization. CT brain and CXR unremarkable from 04/22/20. CT abdomen w/o contrast in 2013 showed a large left adrenal gland. She continues to have generalized weakness, anorexia.Questionable thirst, urinary frequency especially with lasix. She is placed back on her florinef, cortef and vit D/calcium supplements have been discontinued. She has BLE edema past several months since she has been in the hospital. She has a history of DVT. - Allergies Allergies: Allergies ciprofloxacin [From Cipro] Allergy (Verified 04/22/20 19:54) Rash Penicillins Allergy (Verified 04/22/20 19:54) Rash - Current Medications Current Medications: Current Medications Acetaminophen (Acetaminophen 500 Mg Tablet) 1,000 mg PO Q6H PRN PRN PRN Reason: Pain Score 1-10 Atorvastatin Calcium (Atorvastatin Calcium 10 Mg Tablet) 10 mg PO QHS KARLY Calamine/Phenol (Menthol/Lanolin/Calamine/Znox 113 Gm Tube) 1 applic TOPICAL 0600,2200 [facility]; Protocol Last Admin: 04/23/20 06:06 Dose: 1 applicatio Documented by: Fludrocortisone Acetate (Fludrocortisone Acetate 0.1 Mg Tablet) 0.1 mg PO DAILY [facility] Fluticasone Propionate (Fluticasone 0.05% 1 [place] Nasal.Sry) 1 spray NASAL QHS [facility] Hydrocortisone (Hydrocortisone 10 Mg Tablet) 10 mg PO DAILY@1800 [facility] Hydrocortisone (Hydrocortisone 10 Mg Tablet) 20 mg PO DAILY@0600 [facility] Last Admin: 04/23/20 06:06 Dose: 20 mg Documented by: Lactobacillus Acidophilus (Lactobacillus Acidophilus) 1 tablet PO DAILY [facility] Last Admin: 04/23/20 09:50 Dose: 1 tablet Documented by: Nutritional Formula (Lactose Free) (Ensure Enlive 120 Ml Liquid) 120 ml PO 4X/DAY [facility] Last Admin: 04/23/20 14:50 Dose: 120 ml Documented by: Ondansetron HCl (Ondansetron 4 Mg/2 Ml Vial) 4 mg IV Q8H PRN PRN PRN Reason: NAUSEA/VOMITING Potassium Chloride (Potassium Chloride Oral Tablet 20 Meq) 40 meq PO BIDCM [facility] Last Admin: 04/23/20 09:51 Dose: 40 meq Documented by: Sodium Chloride (0.9% Saline Lock 10 Ml Syringe) 10 - 40 ml IV UD PRN PRN Reason: SALINE FLUSH Warfarin Sodium (Warfarin 2.5 Mg Tablet) 2.5 mg PO DAILY@1700 [facility] - Past Medical History Past Medical History (Chronic Problems): Chronic Problems (Last Reviewed 04/23/20 @ 02:[address] 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 - Social History Smoking Status: Never smoker - Family History Maternal Family History: Family History (Last Reviewed 04/23/20 @ 00:31 by Lori Perez) Father CVA (cerebral vascular accident) Mother Myocardial infarction, Onset Age: 87 History Items: High Cholesterol, Heart Disease, Hypertension Paternal Family History: Family History (Last Reviewed 04/23/20 @ 00:31 by Lori Perez) Father CVA (cerebral vascular accident) Mother Myocardial infarction, Onset Age: 87 History Items: Stroke Sibling Family History: Family History (Last Reviewed 04/23/20 @ 00:31 by Lori Perez) Father CVA (cerebral vascular accident) Mother Myocardial infarction, Onset Age: 87 History Items: Renal Disease - Physical Exam Vitals/I&O's: Vital Signs Temp Pulse Resp BP Pulse Ox 97.8 F 103 H 15 109/66 98 04/23/20 15:47 04/23/20 15:47 04/23/20 15:47 04/23/20 15:47 04/23/20 15:47 Oxygen Delivery Method Room Air Weight: 68.4 kg Body Mass Index (BMI) 27.6 Intake and Output for Last 24 Hours 04/21/20 04/22/20 04/23/20 23:59 23:59 23:59 Intake Total 2066.25 / 2066.25 Output Total 650 / 650 Balance 1416.25 / 1416.25 Microbiology Past 72 Hours 04/22/20 21:35 Mucosa - Nose SARS-CoV-2 Antigen (Rapid) - Final Laboratory Results 04/22/20 20:17: WBC 9.9, RBC 3.81 L, Hgb 11.3 L, Hct 34.8 L, MCV 91.3, MCH 29.7, MCHC 32.5, RDW Std Deviation 49.9 H, RDW Coeff of Slava 14.9 H, Plt Count 367, MPV 10.8, Immature Gran % (Auto) 1.200 H, Neut % (Auto) 80.1 H, Lymph % (Auto) 10.8 L, [place] % (Auto) 2.2, Eos % (Auto) 5.5 H, Baso % (Auto) 0.2, Absolute Neuts (auto) 7.9 H, Absolute Lymphs (auto) 1.07, Nucleated RBC % 0 04/22/20 20:17: Sodium 140, Potassium 2.4 L*, Chloride 101, Carbon Dioxide 34.0 H, Anion Gap 5, BUN 35 H, Creatinine 1.82 H, Estim Creat Clear Calc 20.47, Est GFR (MDRD) Af Amer 35 L, Est GFR (MDRD) Non-Af 29 L, BUN/Creatinine Ratio 19.2, Glucose 91, Calcium 14.0 H*, Troponin I 0.039 04/22/20 20:17: PT 26.3 H, INR 2.5 04/23/20 01:27: Urine Color Yellow, Urine Clarity Clear, Urine pH 7.0, Ur Specific [place] 1.010, Urine Protein 15 H, Urine Glucose (UA) Normal, Urine Ketones Negative, Urine Occult Blood 150 H, Urine Nitrite Negative, Urine Bilirubin Negative, Urine Urobilinogen Normal, Ur Leukocyte Esterase 500 H, Urine RBC 5-10 SEEN, Urine WBC 10-25 SEEN, Ur Squamous Epith Cells 0-5 SEEN, Urine Bacteria RARE, Urine Mucus 0 SEEN 04/23/20 05:44: Sodium 138, Potassium 3.3 L, Chloride 106, Carbon Dioxide 28.0, Anion Gap 4 L, BUN 33 H, Creatinine 1.76 H, Estim Creat Clear Calc 21.17, Est GFR (MDRD) Af Amer 36 L, Est GFR (MDRD) Non-Af 30 L, BUN/Creatinine Ratio 18.8, Glucose 74, Calcium 12.5 H 04/23/20 05:44: WBC 10.7, RBC 3.86 L, Hgb 11.5 L, Hct 35.5 L, MCV 92.0, MCH 29.8, MCHC 32.4, RDW Std Deviation 50.9 H, RDW Coeff of Slava 15.4 H, Plt Count 339, MPV 10.5, Immature Gran % (Auto) 1.000 H, Neut % (Auto) 79.6 H, Lymph % (Auto) 11.5 L, [place] % (Auto) 2.9, Eos % (Auto) 4.7, Baso % (Auto) 0.3, Absolute Neuts (auto) 8.5 H, Absolute Lymphs (auto) 1.24, Nucleated RBC % 0 04/23/20 05:44: PT 25.2 H, INR 2.3 04/23/20 05:44: Vitamin B12 > 2000 H Current Medications Acetaminophen (Acetaminophen 500 Mg Tablet) 1,000 mg PO Q6H PRN PRN PRN Reason: Pain Score 1-10 Atorvastatin Calcium (Atorvastatin Calcium 10 Mg Tablet) 10 mg PO QHS [facility] Calamine/Phenol (Menthol/Lanolin/Calamine/Znox 113 Gm Tube) 1 applic TOPICAL 0600,2200 [facility]; Protocol Last Admin: 04/23/20 06:06 Dose: 1 applicatio Documented by: Fludrocortisone Acetate (Fludrocortisone Acetate 0.1 Mg Tablet) 0.1 mg PO DAILY [facility] Fluticasone Propionate (Fluticasone 0.05% 1 [place] Nasal.Sry) 1 spray NASAL QHS [facility] Hydrocortisone (Hydrocortisone 10 Mg Tablet) 10 mg PO DAILY@1800 [facility] Hydrocortisone (Hydrocortisone 10 Mg Tablet) 20 mg PO DAILY@0600 [facility] Last Admin: 04/23/20 06:06 Dose: 20 mg Documented by: Lactobacillus Acidophilus (Lactobacillus Acidophilus) 1 tablet PO DAILY [facility] Last Admin: 04/23/20 09:50 Dose: 1 tablet Documented by: Nutritional Formula (Lactose Free) (Ensure Enlive 120 Ml Liquid) 120 ml PO 4X/DAY [facility] Last Admin: 04/23/20 14:50 Dose: 120 ml Documented by: Ondansetron HCl (Ondansetron 4 Mg/2 Ml Vial) 4 mg IV Q8H PRN PRN PRN Reason: NAUSEA/VOMITING Potassium Chloride (Potassium Chloride Oral Tablet 20 Meq) 40 meq PO BIDCM [facility] Last Admin: 04/23/20 09:51 Dose: 40 meq Documented by: Sodium Chloride (0.9% Saline Lock 10 Ml Syringe) 10 - 40 ml IV UD PRN PRN Reason: SALINE FLUSH Warfarin Sodium (Warfarin 2.5 Mg Tablet) 2.5 mg PO DAILY@1700 [facility] Assessment/Plan All Active Problems (Last Reviewed 04/23/20 @ 02:[address] Jace Lantigua MD) History of non-ST elevation myocardial infarction (NSTEMI) (Resolved 04/2009) Debility (Resolved) Hypotensive episode (Resolved) Pyelonephritis, acute (Resolved) Sepsis (Resolved) Supratherapeutic INR (Resolved) Weakness (Resolved) Essential (primary) hypertension (Ruled-out) 1. ANGELA likely due to hypotension suspect from Addisons disease, dehydration from hypercalcemia. Baseline creatinine 0.9 in February 2020 progressed to 1.4 to 1.95 in March, improved to 1.65 with iv fluids. Continue with iv fluids. 2. Hypercalcemia with elevated vit D 1,25 level of 285 suggestive of hypervitaminosis. Consider granulomatous disease vs malignancy as differential. STOP vit D/Calcium supplements on discharge. consider aredia 30mg if remains elevated despite iv fluids 3. CKD stage 3 due to left nephrectomy, partial right nephrectomy 4. General weakness, frequent falls, syncope suspect from adrenal insuff. poor nutritional status. 5. Addisons disease, resume riana hutson 6. Hypokalemia due to diuretics, poor nutritional status.
--- NOTE | 2020-04-23 16:43 | VDLE_ITS ---
Reason For Study: SWELLING RIGHT LEFT GSV is normal. GSV is normal. CFV is compressible, spontaneous, competent CFV is compressible, spontaneous, competent, and demonstrates pulsatile venous flow. and demonstrates pulsatile venous flow. FV is compressible, spontaneous, competent FV is compressible, spontaneous, competent and demonstrates pulsatile venous flow. and demonstrates pulsatile venous flow. POP V is compressible, spontaneous, competent POP V is compressible, spontaneous, competent and demonstrates pulsatile venous flow. and demonstrates pulsatile venous flow. T/P Trunk is compressible. T/P Trunk is compressible. PTV is compressible. PTV is compressible. RT PerV is compressible. LT PerV is compressible. Procedure Exam performed portable in patient room. A preliminary report was called and/or faxed to [facility]. Interpretation Summary Deep veins of the lower extremities are bilaterally patent and compressible segmentally. There is no evidence of deep vein thrombosis on either side. Valvular competence appears intact within the proximal deep venous systems bilaterally. The great saphenous veins appear bilaterally patent and compressible segmentally. Pulsatile flow is noted in the deep venous system bilaterally, which may be indicative of elevated central venous pressure (i.e. congestive heart failure, tricuspid valve insufficiency, etc.). Clinical correlation is advised. Ordering Physician: Aminata Tarango Referring Physician: Amos Fulton M.D. Performed By: Kacey Sharma, RDCS, RVT
--- NOTE | 2020-04-23 17:27 | PN_ITS ---
Subjective: Doing okay today, still feels little bit out of bed and weak. Calcium is coming down with IV hydration. Vitals/I&O's: Vital Signs Temp Pulse Resp BP Pulse Ox 97.8 F 103 H 15 109/66 98 04/23/20 15:47 04/23/20 15:47 04/23/20 15:47 04/23/20 15:47 04/23/20 15:47 Oxygen Delivery Method Room Air Weight: 150 lb 12.739 oz Body Mass Index (BMI) 27.6 Intake and Output for Last 24 Hours 04/21/20 04/22/20 04/23/20 23:59 23:59 23:59 Intake Total 2066.25 / 2066.25 Output Total 650 / 650 Balance 1416.25 / 1416.25 General: Alert, Oriented x3, Cooperative, No apparent distress HEENT: Atraumatic, PERRLA, EOMI, Normocephalic Oral: Moist Mucosa Neck: Supple, No JVD Lungs: Normal air movement, No rhonchi, No wheeze, No rales, Diminished Cardiovascular: Regular rate, Regular Rhythm, Normal S1, Normal S2, No murmurs Abdomen: Soft, Non Tender, Non-Distended, No Hepato-splenomegaly Extremities: Capillary Refill Less than 3 Seconds, Edema Skin: No rashes, No breakdown Neurological: Neuro grossly intact, Sensory exam intact to light touch and pain Psych/Mental Status: Normal Affect, Appropriate Microbiology Past 72 Hours 04/22/20 21:35 Mucosa - Nose SARS-CoV-2 Antigen (Rapid) - Final Laboratory Results 04/22/20 20:17: WBC 9.9, RBC 3.81 L, Hgb 11.3 L, Hct 34.8 L, MCV 91.3, MCH 29.7, MCHC 32.5, RDW Std Deviation 49.9 H, RDW Coeff of Slava 14.9 H, Plt Count 367, MPV 10.8, Immature Gran % (Auto) 1.200 H, Neut % (Auto) 80.1 H, Lymph % (Auto) 10.8 L, Pitt % (Auto) 2.2, Eos % (Auto) 5.5 H, Baso % (Auto) 0.2, Absolute Neuts (auto) 7.9 H, Absolute Lymphs (auto) 1.07, Nucleated RBC % 0 04/22/20 20:17: Sodium 140, Potassium 2.4 L*, Chloride 101, Carbon Dioxide 34.0 H, Anion Gap 5, BUN 35 H, Creatinine 1.82 H, Estim Creat Clear Calc 20.47, Est GFR (MDRD) Af Amer 35 L, Est GFR (MDRD) Non-Af 29 L, BUN/Creatinine Ratio 19.2, Glucose 91, Calcium 14.0 H*, Troponin I 0.039 04/22/20 20:17: PT 26.3 H, INR 2.5 04/23/20 01:27: Urine Color Yellow, Urine Clarity Clear, Urine pH 7.0, Ur Specific Sheldon 1.010, Urine Protein 15 H, Urine Glucose (UA) Normal, Urine Ketones Negative, Urine Occult Blood 150 H, Urine Nitrite Negative, Urine Bilirubin Negative, Urine Urobilinogen Normal, Ur Leukocyte Esterase 500 H, Urine RBC 5-10 SEEN, Urine WBC 10-25 SEEN, Ur Squamous Epith Cells 0-5 SEEN, Urine Bacteria RARE, Urine Mucus 0 SEEN 04/23/20 05:44: Sodium 138, Potassium 3.3 L, Chloride 106, Carbon Dioxide 28.0, Anion Gap 4 L, BUN 33 H, Creatinine 1.76 H, Estim Creat Clear Calc 21.17, Est GFR (MDRD) Af Amer 36 L, Est GFR (MDRD) Non-Af 30 L, BUN/Creatinine Ratio 18.8, Glucose 74, Calcium 12.5 H 04/23/20 05:44: WBC 10.7, RBC 3.86 L, Hgb 11.5 L, Hct 35.5 L, MCV 92.0, MCH 29.8, MCHC 32.4, RDW Std Deviation 50.9 H, RDW Coeff of Slava 15.4 H, Plt Count 339, MPV 10.5, Immature Gran % (Auto) 1.000 H, Neut % (Auto) 79.6 H, Lymph % (Auto) 11.5 L, Pitt % (Auto) 2.9, Eos % (Auto) 4.7, Baso % (Auto) 0.3, Absolute Neuts (auto) 8.5 H, Absolute Lymphs (auto) 1.24, Nucleated RBC % 0 04/23/20 05:44: PT 25.2 H, INR 2.3 04/23/20 05:44: Vitamin B12 > 2000 H Current Medications Acetaminophen (Acetaminophen 500 Mg Tablet) 1,000 mg PO Q6H PRN PRN PRN Reason: Pain Score 1-10 Atorvastatin Calcium (Atorvastatin Calcium 10 Mg Tablet) 10 mg PO QHS [facility] Calamine/Phenol (Menthol/Lanolin/Calamine/Znox 113 Gm Tube) 1 applic TOPICAL 0600,2200 [facility]; Protocol Last Admin: 04/23/20 06:06 Dose: 1 applicatio Documented by: Fludrocortisone Acetate (Fludrocortisone Acetate 0.1 Mg Tablet) 0.1 mg PO DAILY [facility] Fluticasone Propionate (Fluticasone 0.05% 1 [place] Nasal.Sry) 1 spray NASAL QHS [facility] Hydrocortisone (Hydrocortisone 10 Mg Tablet) 10 mg PO DAILY@1800 [facility] Hydrocortisone (Hydrocortisone 10 Mg Tablet) 20 mg PO DAILY@0600 [facility] Last Admin: 04/23/20 06:06 Dose: 20 mg Documented by: Potassium Chloride 10 meq/ (Sodium Chloride) 1,005 mls @ 75 mls/hr IV .[id number] [facility] Lactobacillus Acidophilus (Lactobacillus Acidophilus) 1 tablet PO DAILY [facility] Last Admin: 04/23/20 09:50 Dose: 1 tablet Documented by: Nutritional Formula (Lactose Free) (Ensure Enlive 120 Ml Liquid) 120 ml PO 4X/DAY [facility] Last Admin: 04/23/20 14:50 Dose: 120 ml Documented by: Ondansetron HCl (Ondansetron 4 Mg/2 Ml Vial) 4 mg IV Q8H PRN PRN PRN Reason: NAUSEA/VOMITING Potassium Chloride (Potassium Chloride Oral Tablet 20 Meq) 40 meq PO BIDCM [facility] Last Admin: 04/23/20 09:51 Dose: 40 meq Documented by: Sodium Chloride (0.9% Saline Lock 10 Ml Syringe) 10 - 40 ml IV UD PRN PRN Reason: SALINE FLUSH Warfarin Sodium (Warfarin 2.5 Mg Tablet) 2.5 mg PO DAILY@1700 [facility] STROKE Vital Signs/Narrative: Vital Signs Temp Pulse Resp BP Pulse Ox 04/23/20 15:47 97.8 F 103 H 15 109/66 98 Medical Necessity - Tobacco Use Smoking Status: Never smoker Tobacco Use: Non-smoker Assessment/Plan All Active Problems (Last Reviewed 04/23/20 @ 02:[address] Jace Lantigua MD) History of non-ST elevation myocardial infarction (NSTEMI) (Resolved 04/2009) Debility (Resolved) Hypotensive episode (Resolved) Pyelonephritis, acute (Resolved) Sepsis (Resolved) Supratherapeutic INR (Resolved) Weakness (Resolved) Essential (primary) hypertension (Ruled-out) 1. 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 Her vitamin D is extremely elevated indicative of possible sarcoid or granulomatous disease therefore once her creatinine is improved we will obtain a CT scan of her abdomen and pelvis as well as chest with contrast -We will discontinue completely her calcium and her vitamin D supplementation -Continue with IV fluids and will recheck calcium in the morning -She had been on Prolia as an outpatient though it does not appear that she is on this anymore. I do recommend that she resume bisphosphonate on discharge -We will continue with her Cortef and Florinef -Continue to monitor creatinine, her baseline new is about 1.4, she was 1.8 on admission and is currently 1.76 2. HTN/HLD -Blood pressure is stable -Continue with Norvasc -Continue with Lipitor 3. History of PE and DVT -On her previous admission INR was up to 8, currently 2.3 -Continue with Coumadin and monitor DVT: Coumadin Inpatient E&M: [id number] [facility] Hosp L2
[2020-04-23] MEDS: Hydrocortisone 10 MG Tablet PO (18:14)
[2020-04-23] MEDS: Atorvastatin Calcium 10 MG Tablet PO (21:40)
[2020-04-23] MEDS: Fluticasone 0.05% 1 SPRAY NASAL.SRY NASAL (21:40)
[2020-04-24] VITALS (9 sets, daily range): BP systolic 119–149; BP diastolic 71–89; PULSE 92–107; RESP 14–18; TEMP 36.6–37.2; O2SAT 94–98
[2020-04-24] MEDS: Hydrocortisone 10 MG Tablet 20 MG PO (06:00)
[2020-04-24] MEDS: Menthol/Lanolin/Calamine/Znox 113 GM Tube 1 APPLIC TOPICAL ×2 (06:01→21:15)
[2020-04-24 06:14] LABS: International Normalized Ratio 2.5; Prothrombin Time (Protime)PT. 26.8 SECONDS (11.7-14.9)
[2020-04-24 06:34] LABS: Albumin, Serum 1.7 g/dL (3.2-5.0); BUN 37 mg/dL (7-18); BUN/Creat Ratio 20.6 RATIO (10-20); Calcium,Total 12.6 mg/dL (8.5-10.1); Chloride 106 mmol/L (98-107); EST Glomerular Filtration Rate 29 mL/min (>60); Est Glom Filt Rate - Afr Amer 35 mL/min (>60); Glucose 93 mg/dL (74-106); Phosphorus 3.5 mg/dL (2.5-4.9); Potassium 4.2 mmol/L (3.5-5.1); Sodium Level 140 mmol/L (136-145)
[2020-04-24] MEDS: 0.9% Normal Saline 1,000 ML 75 ML IV ×2 (08:42→23:45)
[2020-04-24] MEDS: Fludrocortisone Acetate 0.1 MG Tablet PO (08:44)
[2020-04-24] MEDS: Acetaminophen 500 MG Tablet 1000 MG PO (08:48)
--- NOTE | 2020-04-24 10:05 | PCM.PN.HOSP ---
Subjective: Resting comfortably today. No issues overnight. Creatinine and calcium have both gone up Vitals/I&O's: Vital Signs Temp Pulse Resp BP Pulse Ox 97.8 F 105 H 14 119/71 97 04/24/20 08:52 04/24/20 08:52 04/24/20 08:52 04/24/20 08:52 04/24/20 08:52 Oxygen Delivery Method Room Air Weight: 150 lb 12.739 oz Body Mass Index (BMI) 27.6 Intake and Output for Last 24 Hours 04/22/20 04/23/20 04/24/20 23:59 23:59 23:59 Intake Total 2666.25 / 2766.25 1165 / 1165 Output Total 750 / 750 Balance / 1165 / 1165 General: Alert, Oriented x3, Cooperative, No apparent distress HEENT: Atraumatic, PERRLA, EOMI, Normocephalic Oral: Moist Mucosa Neck: Supple, No JVD Lungs: Normal air movement, No rhonchi, No wheeze, No rales, Diminished Cardiovascular: Regular rate, Regular Rhythm, Normal S1, Normal S2, No murmurs Abdomen: Soft, Non Tender, Non-Distended, No Hepato-splenomegaly Extremities: Capillary Refill Less than 3 Seconds, 1+ pitting edema Skin: No rashes, No breakdown Neurological: Neuro grossly intact, Sensory exam intact to light touch and pain Psych/Mental Status: Normal Affect, Appropriate Microbiology Past 72 Hours 04/22/20 21:35 Mucosa - Nose SARS-CoV-2 Antigen (Rapid) - Final Laboratory Results 04/24/20 05:54: PT 26.8 H, INR 2.5 04/24/20 05:54: Sodium 140, Potassium 4.2, Chloride 106, Carbon Dioxide 30.0, BUN 37 H, Creatinine 1.80 H, Estim Creat Clear Calc 20.70, Est GFR (MDRD) Af Amer 35 L, Est GFR (MDRD) Non-Af 29 L, BUN/Creatinine Ratio 20.6 H, Glucose 93, Calcium 12.6 H*, Phosphorus 3.5, Albumin 1.7 L Current Medications Acetaminophen (Acetaminophen 500 Mg Tablet) 1,000 mg PO Q6H PRN PRN PRN Reason: Pain Score 1-10 Last Admin: 04/24/20 08:48 Dose: 1,000 mg Documented by: Atorvastatin Calcium (Atorvastatin Calcium 10 Mg Tablet) 10 mg PO QHS [facility] Last Admin: 04/23/20 21:40 Dose: 10 mg Documented by: Calamine/Phenol (Menthol/Lanolin/Calamine/Znox 113 Gm Tube) 1 applic TOPICAL 0600,2200 [facility]; Protocol Last Admin: 04/24/20 06:01 Dose: 1 applicatio Documented by: Fludrocortisone Acetate (Fludrocortisone Acetate 0.1 Mg Tablet) 0.1 mg PO DAILY [facility] Last Admin: 04/24/20 08:44 Dose: 0.1 mg Documented by: Fluticasone Propionate (Fluticasone 0.05% 1 [place] Nasal.Sry) 1 spray NASAL [facility] Last Admin: 04/23/20 21:40 Dose: 1 spray Documented by: Hydrocortisone (Hydrocortisone 10 Mg Tablet) 10 mg PO DAILY@1800 [facility] Last Admin: 04/23/20 18:14 Dose: 10 mg Documented by: Hydrocortisone (Hydrocortisone 10 Mg Tablet) 20 mg PO DAILY@0600 [facility] Last Admin: 04/24/20 06:00 Dose: 20 mg Documented by: Sodium Chloride () 1,000 mls @ 75 mls/hr IV .[id number] [facility] Last Admin: 04/24/20 08:42 Dose: 75 mls/hr Documented by: Lactobacillus Acidophilus (Lactobacillus Acidophilus) 1 tablet PO DAILY [facility] Last Admin: 04/24/20 08:45 Dose: 1 tablet Documented by: Nutritional Formula (Lactose Free) (Ensure Enlive 120 Ml Liquid) 120 ml PO 4X/DAY [facility] Last Admin: 04/24/20 08:43 Dose: Not Given Documented by: Ondansetron HCl (Ondansetron 4 Mg/2 Ml Vial) 4 mg IV Q8H PRN PRN PRN Reason: NAUSEA/VOMITING Sodium Chloride (0.9% Saline Lock 10 Ml Syringe) 10 - 40 ml IV UD PRN PRN Reason: SALINE FLUSH Warfarin Sodium (Warfarin 2.5 Mg Tablet) 2.5 mg PO DAILY@1700 [facility] Last Admin: 04/23/20 18:14 Dose: 2.5 mg Documented by: STROKE Vital Signs/Narrative: Vital Signs Temp Pulse Resp BP Pulse Ox 04/24/20 08:52 97.8 F 105 H 14 119/71 97 04/24/20 07:17 97 04/24/20 07:10 101 H Medical Necessity - Tobacco Use Smoking Status: Never smoker Tobacco Use: Non-smoker Assessment/Plan All Active Problems (Last Reviewed 04/23/20 @ 02:[address] Jace Lantigua MD) History of non-ST elevation myocardial infarction (NSTEMI) (Resolved 04/2009) Debility (Resolved) Hypotensive episode (Resolved) Pyelonephritis, acute (Resolved) Sepsis (Resolved) Supratherapeutic INR (Resolved) Weakness (Resolved) Essential (primary) hypertension (Ruled-out) 1. 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 Her vitamin D is extremely elevated indicative of possible sarcoid or granulomatous disease therefore once her creatinine is improved we will obtain a CT scan of her abdomen and pelvis as well as chest with contrast -We will discontinue completely her calcium and her vitamin D supplementation -Continue with IV fluids creatinine has risen as needed her calcium went up a little bit today, may need to give pamidronate if no significant improvement in calcium by tomorrow. -She had been on Prolia as an outpatient though it does not appear that she is on this anymore. I do recommend that she resume bisphosphonate on discharge -We will continue with her Cortef and Florinef -Continue to monitor creatinine, her baseline new is about 1.4, she was 1.8 on admission and is currently 1.76 2. HTN/HLD -Blood pressure is stable -Continue with Norvasc -Continue with Lipitor 3. History of PE and DVT -On her previous admission INR was up to 8, currently 2.5 -Continue with Coumadin and monitor DVT: Coumadin Inpatient E&M: [id number] [facility] Hosp L2
--- NOTE | 2020-04-24 11:26 | PN.RENAL_ITS ---
Subjective: still with anorexia, complains of weakness. Trying to eat more, using supplements. Pt dtr at bedside. States she has been taking vit D supplements at home. Advised to stop vit D and calcium supplements. - Physical Exam Vitals/I&O's: Vital Signs Temp Pulse Resp BP Pulse Ox 97.8 F 105 H 14 119/71 97 04/24/20 08:52 04/24/20 08:52 04/24/20 08:52 04/24/20 08:52 04/24/20 08:52 Oxygen Delivery Method Room Air Weight: 68.4 kg Body Mass Index (BMI) 27.6 Intake and Output for Last 24 Hours 04/22/20 04/23/20 04/24/20 23:59 23:59 23:59 Intake Total 2666.25 / 2766.25 1165 / 1165 Output Total 750 / 750 Balance 1165 / 1165 General: Alert, Oriented x3, - - weak, fatigue Oral: Dry Mucosa Lungs: Clear to auscultation Cardiovascular: Regular rate Abdomen: Bowel Sounds Present, Soft, Non Tender, Non-Distended Extremities: Edema - upper and BLE mild Musculoskeletal: - - gen weakness Neurological: - - no tremor Psych/Mental Status: Normal Affect, Appropriate, Alert and oriented to time, place, person, mood and affect Microbiology Past 72 Hours 04/22/20 21:35 Mucosa - Nose SARS-CoV-2 Antigen (Rapid) - Final Laboratory Results 04/24/20 05:54: PT 26.8 H, INR 2.5 04/24/20 05:54: Sodium 140, Potassium 4.2, Chloride 106, Carbon Dioxide 30.0, BUN 37 H, Creatinine 1.80 H, Estim Creat Clear Calc 20.70, Est GFR (MDRD) Af Amer 35 L, Est GFR (MDRD) Non-Af 29 L, BUN/Creatinine Ratio 20.6 H, Glucose 93, Calcium 12.6 H*, Phosphorus 3.5, Albumin 1.7 L Current Medications Acetaminophen (Acetaminophen 500 Mg Tablet) 1,000 mg PO Q6H PRN PRN PRN Reason: Pain Score 1-10 Last Admin: 04/24/20 08:48 Dose: 1,000 mg Documented by: Atorvastatin Calcium (Atorvastatin Calcium 10 Mg Tablet) 10 mg PO QHS [facility] Last Admin: 04/23/20 21:40 Dose: 10 mg Documented by: Calamine/Phenol (Menthol/Lanolin/Calamine/Znox 113 Gm Tube) 1 applic TOPICAL 0600,2200 [facility]; Protocol Last Admin: 04/24/20 06:01 Dose: 1 applicatio Documented by: Fludrocortisone Acetate (Fludrocortisone Acetate 0.1 Mg Tablet) 0.1 mg PO DAILY [facility] Last Admin: 04/24/20 08:44 Dose: 0.1 mg Documented by: Fluticasone Propionate (Fluticasone 0.05% 1 [place] Nasal.Sry) 1 spray NASAL QHS [facility] Last Admin: 04/23/20 21:40 Dose: 1 spray Documented by: Hydrocortisone (Hydrocortisone 10 Mg Tablet) 10 mg PO DAILY@1800 [facility] Last Admin: 04/23/20 18:14 Dose: 10 mg Documented by: Hydrocortisone (Hydrocortisone 10 Mg Tablet) 20 mg PO DAILY@0600 [facility] Last Admin: 04/24/20 06:00 Dose: 20 mg Documented by: Sodium Chloride () 1,000 mls @ 75 mls/hr IV .[id number] [facility] Last Admin: 04/24/20 08:42 Dose: 75 mls/hr Documented by: Lactobacillus Acidophilus (Lactobacillus Acidophilus) 1 tablet PO DAILY [facility] Last Admin: 04/24/20 08:45 Dose: 1 tablet Documented by: Nutritional Formula (Lactose Free) (Ensure Enlive 120 Ml Liquid) 120 ml PO 4X/DAY [facility] Last Admin: 04/24/20 08:43 Dose: Not Given Documented by: Ondansetron HCl (Ondansetron 4 Mg/2 Ml Vial) 4 mg IV Q8H PRN PRN PRN Reason: NAUSEA/VOMITING Sodium Chloride (0.9% Saline Lock 10 Ml Syringe) 10 - 40 ml IV UD PRN PRN Reason: SALINE FLUSH Warfarin Sodium (Warfarin 2.5 Mg Tablet) 2.5 mg PO DAILY@1700 [facility] Last Admin: 04/23/20 18:14 Dose: 2.5 mg Documented by: Medical Necessity - Tobacco Use Smoking Status: Never smoker Tobacco Use: Non-smoker Assessment/Plan All Active Problems (Last Reviewed 04/23/20 @ 02:[address] Jace Lantigua MD) History of non-ST elevation myocardial infarction (NSTEMI) (Resolved 04/2009) Debility (Resolved) Hypotensive episode (Resolved) Pyelonephritis, acute (Resolved) Sepsis (Resolved) Supratherapeutic INR (Resolved) Weakness (Resolved) Essential (primary) hypertension (Ruled-out) 1. ANGELA on CKD stage 3. Baseline creatinine 0.9 to 1.3 now at 1.8. Resume iv fluids. May have issues with urinary retention. Continue to monitor 2. Addisons with hypotension, continue hormonal replacement. BP improved. 3. Hypercalcemia with elevated vit D 1,25 level of 285, hypervitaminosis with hx use of supplements. Consider granulomatous disease vs malignancy vs hype rvitaminosis. Monitor Vit D 1.25 level. Aredia 30mg x1 iv 4. 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 Renal US no mass, simple renal cyst persists. 5. General weakness, frequent falls, syncope suspect from adrenal insuff. poor nutritional status. 6. Hypokalemia due to diuretics, poor nutritional status resolved. Monitor DW pt dtr at bedside to stop vit D or calcium supplements at home.
--- NOTE | 2020-04-24 15:24 | CASEMGMT ---
This RN CM to room to discuss discharge plan with pt at this time. Pt states plan is to go home with resumption of HHC at this time. KENDRICK order placed and green sheet left on chart at this time. Pt voices no further questions/concerns/needs. SStaten ROSS CM
[2020-04-24] MEDS: Hydrocortisone 10 MG Tablet PO (17:07)
[2020-04-24] MEDS: Fluticasone 0.05% 1 SPRAY NASAL.SRY NASAL (21:15)
[2020-04-24] MEDS: Atorvastatin Calcium 10 MG Tablet PO (21:16)
[2020-04-25] VITALS (9 sets, daily range): BP systolic 116–146; BP diastolic 58–85; PULSE 96–109; RESP 12–18; TEMP 36.5–37.1; O2SAT 93–98
[2020-04-25] MEDS: Acetaminophen 500 MG Tablet 1000 MG PO ×2 (02:41→17:20)
[2020-04-25] MEDS: Hydrocortisone 10 MG Tablet 20 MG PO (05:31)
[2020-04-25 08:14] LABS: Anion Gap 6 (5-15); BUN 38 mg/dL (7-18); BUN/Creat Ratio 19.6 RATIO (10-20); Calcium,Total 12.7 mg/dL (8.5-10.1); Chloride 107 mmol/L (98-107); Creatinine, Serum 1.94 mg/dL (0.55-1.02); EST Glomerular Filtration Rate 27 mL/min (>60); Est Glom Filt Rate - Afr Amer 32 mL/min (>60); Estimated Creatinine Clearance 19.21 ml/min; Glucose 89 mg/dL (74-106); Potassium 3.7 mmol/L (3.5-5.1); Sodium Level 141 mmol/L (136-145)
[2020-04-25 08:17] LABS: International Normalized Ratio 2.8; Prothrombin Time (Protime)PT. 29.2 SECONDS (11.7-14.9)
[2020-04-25] MEDS: Fludrocortisone Acetate 0.1 MG Tablet PO (09:06)
--- NOTE | 2020-04-25 10:55 | PCM.PN.HOSP ---
Subjective: Feels about the same, she has both upper extremity and lower extremity edema now Vitals/I&O's: Vital Signs Temp Pulse Resp BP Pulse Ox 98.4 F 101 H 18 138/77 H 93 04/25/20 09:07 04/25/20 09:07 04/25/20 09:07 04/25/20 09:07 04/25/20 09:07 Oxygen Delivery Method Room Air Weight: 150 lb 12.739 oz Body Mass Index (BMI) 27.6 Intake and Output for Last 24 Hours 04/23/20 04/24/20 04/25/20 23:59 23:59 23:59 Intake Total 2666.25 / 2766.25 2780.0 / 2780.0 50 / 50 Output Total 750 / 750 203 / 203 500 / 500 Balance 2577.0 / 2577.0 -450 / -450 General: Alert, Oriented x3, Cooperative, No apparent distress HEENT: Atraumatic, PERRLA, EOMI, Normocephalic Oral: Moist Mucosa Neck: Supple, No JVD Lungs: Normal air movement, No rhonchi, No wheeze, No rales, Diminished Cardiovascular: Regular rate, Regular Rhythm, Normal S1, Normal S2, No murmurs Abdomen: Soft, Non Tender, Non-Distended, No Hepato-splenomegaly Extremities: Capillary Refill Less than 3 Seconds, 2+ pitting edema upper and lower extremities Skin: No rashes, No breakdown Neurological: Neuro grossly intact, Sensory exam intact to light touch and pain Psych/Mental Status: Normal Affect, Appropriate Microbiology Past 72 Hours 04/22/20 21:35 Mucosa - Nose SARS-CoV-2 Antigen (Rapid) - Final Laboratory Results 04/25/20 07:46: PT 29.2 H, INR 2.8 04/25/20 07:46: Sodium 141, Potassium 3.7, Chloride 107, Carbon Dioxide 28.0, Anion Gap 6, BUN 38 H, Creatinine 1.94 H, Estim Creat Clear Calc 19.21, Est GFR (MDRD) Af Amer 32 L, Est GFR (MDRD) Non-Af 27 L, BUN/Creatinine Ratio 19.6, Glucose 89, Calcium 12.7 H* Current Medications Acetaminophen (Acetaminophen 500 Mg Tablet) 1,000 mg PO Q6H PRN PRN PRN Reason: Pain Score 1-10 Last Admin: 04/25/20 02:41 Dose: 1,000 mg Documented by: Atorvastatin Calcium (Atorvastatin Calcium 10 Mg Tablet) 10 mg PO QHS [facility] Last Admin: 04/24/20 21:16 Dose: 10 mg Documented by: Calamine/Phenol (Menthol/Lanolin/Calamine/Znox 113 Gm Tube) 1 applic TOPICAL 0600,2200 [facility]; Protocol Last Admin: 04/25/20 05:31 Dose: Not Given Documented by: Fludrocortisone Acetate (Fludrocortisone Acetate 0.1 Mg Tablet) 0.1 mg PO DAILY [facility] Last Admin: 04/25/20 09:06 Dose: 0.1 mg Documented by: Fluticasone Propionate (Fluticasone 0.05% 1 [place] Nasal.Sry) 1 spray NASAL QHS [facility] Last Admin: 04/24/20 21:15 Dose: 1 spray Documented by: Hydrocortisone (Hydrocortisone 10 Mg Tablet) 10 mg PO DAILY@1800 [facility] Last Admin: 04/24/20 17:07 Dose: 10 mg Documented by: Hydrocortisone (Hydrocortisone 10 Mg Tablet) 20 mg PO DAILY@0600 [facility] Last Admin: 04/25/20 05:31 Dose: 20 mg Documented by: Sodium Chloride () 1,000 mls @ 100 mls/hr IV .Q10H [facility] Lactobacillus Acidophilus (Lactobacillus Acidophilus) 1 tablet PO DAILY [facility] Last Admin: 04/25/20 09:06 Dose: 1 tablet Documented by: Nutritional Formula (Lactose Free) (Ensure Enlive 120 Ml Liquid) 120 ml PO 4X/DAY [facility] Last Admin: 04/25/20 09:06 Dose: 120 ml Documented by: Ondansetron HCl (Ondansetron 4 Mg/2 Ml Vial) 4 mg IV Q8H PRN PRN PRN Reason: NAUSEA/VOMITING Sodium Chloride (0.9% Saline Lock 10 Ml Syringe) 10 - 40 ml IV UD PRN PRN Reason: SALINE FLUSH Warfarin Sodium (Warfarin 2.5 Mg Tablet) 2.5 mg PO DAILY@1700 [facility] Last Admin: 04/24/20 17:05 Dose: 2.5 mg Documented by: STROKE Vital Signs/Narrative: Vital Signs Temp Pulse Resp BP Pulse Ox 04/25/20 09:07 98.4 F 101 H 18 138/77 H 93 04/25/20 07:40 93 Medical Necessity - Tobacco Use Smoking Status: Never smoker Tobacco Use: Non-smoker Assessment/Plan All Active Problems (Last Reviewed 04/23/20 @ 02:[address] Jace Lantigua MD) History of non-ST elevation myocardial infarction (NSTEMI) (Resolved 04/2009) Debility (Resolved) Hypotensive episode (Resolved) Pyelonephritis, acute (Resolved) Sepsis (Resolved) Supratherapeutic INR (Resolved) Weakness (Resolved) Essential (primary) hypertension (Ruled-out) 1. 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 Her vitamin D is extremely elevated indicative of possible sarcoid or granulomatous disease therefore once her creatinine is improved we will obtain a CT scan of her abdomen and pelvis as well as chest with contrast -We will discontinue completely her calcium and her vitamin D supplementation -Continue with IV fluids creatinine has risen, so has her calcium however she was given pamidronate yesterday -She had been on Prolia as an outpatient though it does not appear that she is on this anymore. I do recommend that she resume bisphosphonate on discharge -We will continue with her Cortef and Florinef -Continue to monitor creatinine, her baseline new is about 1.4, she was 1.8 on admission and is currently 1.94, appreciate nephrology's assistance. 2. HTN/HLD -Blood pressure is stable -Continue with Norvasc -Continue with Lipitor 3. History of PE and DVT -On her previous admission INR was up to 8, currently 2.8 -Continue with Coumadin and monitor DVT: Coumadin Inpatient E&M: [id number] [facility] Hosp L2
[2020-04-25] MEDS: 0.9% Normal Saline 1,000 ML 100 ML IV ×2 (11:59→21:45)
[2020-04-25 15:50] LABS: Urine Sodium 83 mmol/L (Not Establ.)
[2020-04-25] MEDS: Hydrocortisone 10 MG Tablet PO (17:20)
[2020-04-25] MEDS: Menthol/Lanolin/Calamine/Znox 113 GM Tube 1 APPLIC TOPICAL (21:45)
[2020-04-25] MEDS: Fluticasone 0.05% 1 SPRAY NASAL.SRY NASAL (21:46)
[2020-04-25] MEDS: Atorvastatin Calcium 10 MG Tablet PO (21:47)
[2020-04-26] VITALS (10 sets, daily range): BP systolic 141–152; BP diastolic 71–89; PULSE 98–131; RESP 17–18; TEMP 36.1–37.2; O2SAT 91–97
[2020-04-26] MEDS: Hydrocortisone 10 MG Tablet 20 MG PO (05:24)
[2020-04-26 06:57] LABS: Absolute Lymphocyte Count 1.15 X10^3/uL (0.83-4.51); Absolute Neutrophil Count 7.1 X10^3/uL (2.0-7.7); Basophil# 0.04 X10^3/uL; Basophil% 0.4 % (0-1); Eosinophil# 0.51 X10^3/uL; Eosinophils% 5.4 % (0-5); Hematocrit 32.9 % (37-47); Hemoglobin 10.5 g/dL (12.0-15.0); Lymphocyte # 1.15 X10^3/ul (4.0); Lymphocyte % 12.3 % (19-41); Mean Corp Hgb Conc 31.9 g/dL (32-36); Mean Corpuscular Hgb 29.2 pg (27.0-32.0); Mean Corpuscular Volume 91.4 fL (81-99); Mean Platelet Vol. 10.4 fl (6.2-12.0); Monocyte# 0.34 X10^3/uL; Monocyte% 3.6 % (0-10); NRBC Flagged by Analyzer 0 % (0-5); Neutrophil # 7.11 X10^3/uL (2.7-7.7); Neutrophil % 76.1 % (47-70); Platelet Count 347 K/mm3 (150-450); RBC Distribution Width CV 15.3 % (11.6-14.6); RBC Distribution Width SD 51.3 fl (35.1-43.9); White Blood Count 9.4 K/mm3 (4.4-11.0)
[2020-04-26 07:11] LABS: International Normalized Ratio 3.2; Prothrombin Time (Protime)PT. 32.4 SECONDS (11.7-14.9)
[2020-04-26 07:25] LABS: Anion Gap 5 (5-15); BUN 46 mg/dL (7-18); BUN/Creat Ratio 21.6 RATIO (10-20); Calcium,Total 13.8 mg/dL (8.5-10.1); Chloride 110 mmol/L (98-107); Creatinine, Serum 2.13 mg/dL (0.55-1.02); EST Glomerular Filtration Rate 24 mL/min (>60); Est Glom Filt Rate - Afr Amer 29 mL/min (>60); Estimated Creatinine Clearance 17.49 ml/min; Glucose 95 mg/dL (74-106); Potassium 3.4 mmol/L (3.5-5.1); Sodium Level 143 mmol/L (136-145)
[2020-04-26] MEDS: 0.9% Normal Saline 1,000 ML 100 ML IV ×2 (07:45→17:37)
[2020-04-26] MEDS: Fludrocortisone Acetate 0.1 MG Tablet PO (08:11)
[2020-04-26] MEDS: Acetaminophen 500 MG Tablet 1000 MG PO (08:14)
[2020-04-26] MEDS: Albumin Human 25% (100 mL) 25 GM/100 ML BAG IV (08:15)
--- NOTE | 2020-04-26 09:43 | CT_ITS ---
EXAM: CT CHEST, ABDOMEN AND PELVIS WITHOUT INTRAVENOUS CONTRAST CLINICAL INDICATION: Hypercalcemia work-up TECHNIQUE: Helically acquired images were obtained of the chest, abdomen and pelvis without intravenous contrast. This CT exam was performed using one or more of the following dose reduction techniques: automated exposure control, adjustment of the mA and/or kV according to patient size, and/or use of iterative reconstruction technique. This report was created using [employer] report generation technology. COMPARISON: CT 11/07/2013 FINDINGS: CHEST: LUNGS AND PLEURAL SPACES: Small left and trace right pleural effusions. Mild fibrotic changes of the lungs. Atelectasis in the left lower lobe. No mass. No pneumothorax. HEART: Unremarkable. Heart size is normal. No pericardial effusion. MEDIASTINUM: Unremarkable. No mediastinal or hilar adenopathy. Esophagus is unremarkable. No hiatal hernia. THYROID: Unremarkable. No thyroid lesions. ABDOMEN: LIVER: Unremarkable. Homogeneous. GALLBLADDER AND BILE DUCTS: Cholecystectomy. No intra- or extrahepatic biliary ductal dilation. PANCREAS: Unremarkable. No focal cystic mass. SPLEEN: Unremarkable. Normal size without focal cystic or solid mass. ADRENALS: Unremarkable. No nodules. KIDNEYS AND URETERS: Left kidney is absent. Operative changes of the posterior right kidney. Stable right renal cyst. Normal renal size and position. No hydronephrosis. STOMACH AND BOWEL: Colonic diverticula. No stomach or bowel distention. No focal inflammatory change. PELVIS: APPENDIX: No evidence of acute appendicitis. BLADDER: SHIRLEY catheter decompresses the urinary bladder. REPRODUCTIVE: Hysterectomy. No mass. SUBPERITONEAL SPACE: Soft tissue induration in the presacral pelvis without focal fluid collection. CHEST, ABDOMEN and PELVIS: INTRAPERITONEAL SPACE: Unremarkable. No ascites or other fluid collection. No free air. BONES/JOINTS: Heterogeneous sclerosis of the sacrum. Degenerative changes of the thoracic and lumbar spine with stable mild compression deformity of T6, T10. Old sternal fracture. SOFT TISSUES: Small abdominal wall hernia. VASCULATURE: IVC filter, stable. Aorta is non-dilated. LYMPH NODES: Unremarkable. No enlarged lymph nodes. CT/CT Chest, Abd, Pelvis WO Cont IMPRESSION: 1. Small left and trace right pleural effusions. 2. Soft tissue induration in the presacral pelvis without focal fluid collection. May be sequela of prior radiation therapy or inflammation. Clinical correlation needed. 3. Heterogeneous sclerosis of the sacrum. Likely osteitis related to prior radiation therapy but is nonspecific. No discrete or expansile lesion. Electronically Signed: Bolivar Farris MD (Brooks) at 14:14 EST , Service support ,
--- NOTE | 2020-04-26 10:32 | PCM.PN.HOSP ---
Subjective: Feels a little bit tired today, has not gotten out of bed at all and refused to work with therapy yesterday. Still with peripheral edema Vitals/I&O's: Vital Signs Temp Pulse Resp BP Pulse Ox 98.7 F 100 17 145/71 H 91 04/26/20 03:45 04/26/20 07:12 04/26/20 03:45 04/26/20 03:45 04/26/20 07:00 Oxygen Delivery Method Room Air Weight: 150 lb 12.739 oz Body Mass Index (BMI) 27.6 Intake and Output for Last 24 Hours 04/24/20 04/25/20 04/26/20 23:59 23:59 23:59 Intake Total 2780.0 / 2780.0 2602.09 / 2602.09 1200 / 1200 Output Total 203 / 203 1900 / 1900 1025 / 1025 Balance 2577.0 / 2577.0 702.09 / 702.09 175 / 175 General: Alert, Oriented x3, Cooperative, No apparent distress HEENT: Atraumatic, PERRLA, EOMI, Normocephalic Oral: Moist Mucosa Neck: Supple, No JVD Lungs: Normal air movement, No rhonchi, No wheeze, No rales, Diminished Cardiovascular: Regular rate, Regular Rhythm, Normal S1, Normal S2, No murmurs Abdomen: Soft, Non Tender, Non-Distended, No Hepato-splenomegaly Extremities: Capillary Refill Less than 3 Seconds, 2+ pitting edema upper and lower extremities Skin: No rashes, No breakdown Neurological: Neuro grossly intact, Sensory exam intact to light touch and pain Psych/Mental Status: Normal Affect, Appropriate Laboratory Results 04/25/20 15:10: Urine Creatinine 19.60 04/25/20 15:10: Ur Random Sodium 83 04/26/20 06:35: PT 32.4 H, INR 3.2 04/26/20 06:35: Sodium 143, Potassium 3.4 L, Chloride 110 H, Carbon Dioxide 28.0, Anion Gap 5, BUN 46 H, Creatinine 2.13 H, Estim Creat Clear Calc 17.49, Est GFR (MDRD) Af Amer 29 L, Est GFR (MDRD) Non-Af 24 L, BUN/Creatinine Ratio 21.6 H, Glucose 95, Calcium 13.8 H* 04/26/20 06:35: WBC 9.4, RBC 3.60 L, Hgb 10.5 L, Hct 32.9 L, MCV 91.4, MCH 29.2, MCHC 31.9 L, RDW Std Deviation 51.3 H, RDW Coeff of Slava 15.3 H, Plt Count 347, MPV 10.4, Immature Gran % (Auto) 2.200 H, Neut % (Auto) 76.1 H, Lymph % (Auto) 12.3 L, Sac % (Auto) 3.6, Eos % (Auto) 5.4 H, Baso % (Auto) 0.4, Absolute Neuts (auto) 7.1, Absolute Lymphs (auto) 1.15, Nucleated RBC % 0 Current Medications Acetaminophen (Acetaminophen 500 Mg Tablet) 1,000 mg PO Q6H PRN PRN PRN Reason: Pain Score 1-10 Last Admin: 04/26/20 08:14 Dose: 1,000 mg Documented by: Atorvastatin Calcium (Atorvastatin Calcium 10 Mg Tablet) 10 mg PO QHS [facility] Last Admin: 04/25/20 21:47 Dose: 10 mg Documented by: Calamine/Phenol (Menthol/Lanolin/Calamine/Znox 113 Gm Tube) 1 applic TOPICAL 0600,2200 [facility]; Protocol Last Admin: 04/26/20 05:24 Dose: Not Given Documented by: Fludrocortisone Acetate (Fludrocortisone Acetate 0.1 Mg Tablet) 0.1 mg PO DAILY [facility] Last Admin: 04/26/20 08:11 Dose: 0.1 mg Documented by: Fluticasone Propionate (Fluticasone 0.05% 1 [place] Nasal.Sry) 1 spray NASAL QHS [facility] Last Admin: 04/25/20 21:46 Dose: 1 spray Documented by: Hydrocortisone (Hydrocortisone 10 Mg Tablet) 10 mg PO DAILY@1800 [facility] Last Admin: 04/25/20 17:20 Dose: 10 mg Documented by: Hydrocortisone (Hydrocortisone 10 Mg Tablet) 20 mg PO DAILY@0600 [facility] Last Admin: 04/26/20 05:24 Dose: 20 mg Documented by: Sodium Chloride () 1,000 mls @ 100 mls/hr IV .Q10H [facility] Last Admin: 04/26/20 07:45 Dose: 100 mls/hr Documented by: Pamidronate Disodium 60 mg/ (Sodium Chloride) 506.6667 mls @ 126.667 mls/hr IV X1 ONE Stop: 04/26/20 14:29 Lactobacillus Acidophilus (Lactobacillus Acidophilus) 1 tablet PO DAILY [facility] Last Admin: 04/26/20 08:11 Dose: 1 tablet Documented by: Nutritional Formula (Lactose Free) (Ensure Enlive 120 Ml Liquid) 120 ml PO 4X/DAY [facility] Last Admin: 04/26/20 08:14 Dose: 120 ml Documented by: Ondansetron HCl (Ondansetron 4 Mg/2 Ml Vial) 4 mg IV Q8H PRN PRN PRN Reason: NAUSEA/VOMITING Potassium Chloride (Potassium Chloride Oral Tablet 20 Meq) 20 meq PO BIDCM [facility] Sodium Chloride (0.9% Saline Lock 10 Ml Syringe) 10 - 40 ml IV UD PRN PRN Reason: SALINE FLUSH Warfarin Sodium (Warfarin 2.5 Mg Tablet) 2.5 mg PO DAILY@1700 [facility] Last Admin: 04/26/20 07:57 Dose: Not Given Documented by: STROKE Vital Signs/Narrative: Vital Signs Pulse Pulse Ox 04/26/20 07:12 100 04/26/20 07:00 91 Medical Necessity - Tobacco Use Smoking Status: Never smoker Tobacco Use: Non-smoker Assessment/Plan All Active Problems (Last Reviewed 04/23/20 @ 02:[address] Jace Lantigua MD) History of non-ST elevation myocardial infarction (NSTEMI) (Resolved 04/2009) Debility (Resolved) Hypotensive episode (Resolved) Pyelonephritis, acute (Resolved) Sepsis (Resolved) Supratherapeutic INR (Resolved) Weakness (Resolved) Essential (primary) hypertension (Ruled-out) 1. 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 Her vitamin D is extremely elevated indicative of possible sarcoid or granulomatous disease. We will obtain a CT scan of her chest abdomen and pelvis today without contrast secondary to her renal function -We will discontinue completely her calcium and her vitamin D supplementation -Continue with IV fluids creatinine has risen, so has her calcium however she was given pamidronate yesterday -She had been on Prolia as an outpatient though it does not appear that she is on this anymore. I do recommend that she resume bisphosphonate on discharge -Due to her continued edema especially in the setting of her Florinef and her Cortef, will also give her albumin today to see if we can assist in diuresis and peripheral edema. Unfortunate she does need to continue with her IV fluids since her calcium and her renal function have both worsened -We will continue with her Cortef and Florinef -Continue to monitor creatinine, her baseline new is about 1.4, she was 1.8 on admission and is currently 2.13, appreciate nephrology's assistance. -Did have to place a Jarrell in her as she was not having excellent urine output. She was bladder scanned for about 484 and then urinated for about 500 cc but then post void residual demonstrate about another 380 cc in her bladder. When the Jarrell was placed the nurse notified me that there did appear to be pyuria therefore a culture was obtained. She is asymptomatic if this is a UTI therefore will hold off on antibiotics especially in light of her creatinine pending confirmation with a urine culture 2. HTN/HLD -Blood pressure is stable -Continue with Norvasc -Continue with Lipitor 3. History of PE and DVT -On her previous admission INR was up to 8, currently 3.2 -We will hold Coumadin DVT: Coumadin Inpatient E&M: [id number] [facility] H[facility] L2
[2020-04-26] MEDS: Furosemide 20 MG/2 ML VIAL IV (10:56)
[2020-04-26] MEDS: 0.9% Saline Lock 10 ML Syringe IV (10:57)
[2020-04-26] MEDS: Potassium Chloride Oral Tablet 20 MEQ 40 MEQ PO (10:57)
--- NOTE | 2020-04-26 14:14 | PN.RENAL_ITS ---
Subjective: Urine output improved with quan. Creatinine and calcium increasing. Still with fatigue, weakness, anorexia. Pt dtr at bedside - Physical Exam Vitals/I&O's: Vital Signs Temp Pulse Resp BP Pulse Ox 96.9 F L 101 H 18 146/82 H 95 04/26/20 10:57 04/26/20 10:57 04/26/20 10:57 04/26/20 10:57 04/26/20 10:57 Oxygen Delivery Method Room Air Weight: 68.4 kg Body Mass Index (BMI) 27.6 Intake and Output for Last 24 Hours 04/24/20 04/25/20 04/26/20 23:59 23:59 23:59 Intake Total 2780.0 / 2780.0 2602.09 / 2602.09 1800 / 1800 Output Total 203 / 203 1900 / 1900 2275 / 2275 Balance 2577.0 / 2577.0 702.09 / 702.09 -475 / -475 General: Alert, Oriented x3, Cooperative Lungs: Clear to auscultation Cardiovascular: Regular rate Abdomen: Bowel Sounds Present, Soft, Non Tender, Non-Distended Extremities: Edema - pitting BUE, BLE 1+ Musculoskeletal: - - gen weakness Psych/Mental Status: Normal Affect, Appropriate, Alert and oriented to time, place, person, mood and affect Microbiology Past 72 Hours 04/25/20 15:10 Urine, Clean Catch Urine Culture - 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 Laboratory Results 04/25/20 15:10: Urine Creatinine 19.60 04/25/20 15:10: Ur Random Sodium 83 04/26/20 06:35: PT 32.4 H, INR 3.2 04/26/20 06:35: Sodium 143, Potassium 3.4 L, Chloride 110 H, Carbon Dioxide 28.0, Anion Gap 5, BUN 46 H, Creatinine 2.13 H, Estim Creat Clear Calc 17.49, Est GFR (MDRD) Af Amer 29 L, Est GFR (MDRD) Non-Af 24 L, BUN/Creatinine Ratio 21.6 H, Glucose 95, Calcium 13.8 H* 04/26/20 06:35: WBC 9.4, RBC 3.60 L, Hgb 10.5 L, Hct 32.9 L, MCV 91.4, MCH 29.2, MCHC 31.9 L, RDW Std Deviation 51.3 H, RDW Coeff of Slava 15.3 H, Plt Count 347, MPV 10.4, Immature Gran % (Auto) 2.200 H, Neut % (Auto) 76.1 H, Lymph % (Auto) 12.3 L, [place] % (Auto) 3.6, Eos % (Auto) 5.4 H, Baso % (Auto) 0.4, Absolute Neuts (auto) 7.1, Absolute Lymphs (auto) 1.15, Nucleated RBC % 0 Current Medications Acetaminophen (Acetaminophen 500 Mg Tablet) 1,000 mg PO Q6H PRN PRN PRN Reason: Pain Score 1-10 Last Admin: 04/26/20 08:14 Dose: 1,000 mg Documented by: Atorvastatin Calcium (Atorvastatin Calcium 10 Mg Tablet) 10 mg PO QHS [facility] Last Admin: 04/25/20 21:47 Dose: 10 mg Documented by: Calamine/Phenol (Menthol/Lanolin/Calamine/Znox 113 Gm Tube) 1 applic TOPICAL 0600,2200 [facility]; Protocol Last Admin: 04/26/20 05:24 Dose: Not Given Documented by: Fludrocortisone Acetate (Fludrocortisone Acetate 0.1 Mg Tablet) 0.1 mg PO DAILY [facility] Last Admin: 04/26/20 08:11 Dose: 0.1 mg Documented by: Fluticasone Propionate (Fluticasone 0.05% 1 [place] Nasal.Sry) 1 spray NASAL QHS [facility] Last Admin: 04/25/20 21:46 Dose: 1 spray Documented by: Hydrocortisone (Hydrocortisone 10 Mg Tablet) 10 mg PO DAILY@1800 [facility] Last Admin: 04/25/20 17:20 Dose: 10 mg Documented by: Hydrocortisone (Hydrocortisone 10 Mg Tablet) 20 mg PO DAILY@0600 [facility] Last Admin: 04/26/20 05:24 Dose: 20 mg Documented by: Sodium Chloride () 1,000 mls @ 100 mls/hr IV .Q10H [facility] Last Admin: 04/26/20 07:45 Dose: 100 mls/hr Documented by: Pamidronate Disodium 60 mg/ (Sodium Chloride) 506.6667 mls @ 126.667 mls/hr IV X1 ONE Stop: 04/26/20 14:29 Last Admin: 04/26/20 10:56 Dose: 126.7 mls/hr Documented by: Lactobacillus Acidophilus (Lactobacillus Acidophilus) 1 tablet PO DAILY [facility] Last Admin: 04/26/20 08:11 Dose: 1 tablet Documented by: Nutritional Formula (Lactose Free) (Ensure Enlive 120 Ml Liquid) 120 ml PO 4X/DAY [facility] Last Admin: 04/26/20 08:14 Dose: 120 ml Documented by: Ondansetron HCl (Ondansetron 4 Mg/2 Ml Vial) 4 mg IV Q8H PRN PRN PRN Reason: NAUSEA/VOMITING Potassium Chloride (Potassium Chloride Oral Tablet 20 Meq) 20 meq PO BIDCM [facility] Sodium Chloride (0.9% Saline Lock 10 Ml Syringe) 10 - 40 ml IV UD PRN PRN Reason: SALINE FLUSH Last Admin: 04/26/20 10:57 Dose: 10 ml Documented by: Warfarin Sodium (Warfarin 2.5 Mg Tablet) 2.5 mg PO DAILY@1700 [facility] Last Admin: 04/26/20 07:57 Dose: Not Given Documented by: Medical Necessity - Tobacco Use Smoking Status: Never smoker Tobacco Use: Non-smoker Assessment/Plan All Active Problems (Last Reviewed 04/23/20 @ 02:[address] Jace Lantigua MD) History of non-ST elevation myocardial infarction (NSTEMI) (Resolved 04/2009) Debility (Resolved) Hypotensive episode (Resolved) Pyelonephritis, acute (Resolved) Sepsis (Resolved) Supratherapeutic INR (Resolved) Weakness (Resolved) Essential (primary) hypertension (Ruled-out) 1. ANGELA on CKD stage 3. Baseline creatinine 0.9 to 1.3 now at 1.8 to 2.13 today. Continue iv fluids 2. Addisons with hypotension, continue hormonal replacement. BP improved. 3. Hypercalcemia with elevated vit D 1,25 level of 285, hypervitaminosis with hx use of supplements. Calcium increased. Consider granulomatous disease vs malignancy vs hypervitaminosis. Recheck Vit D 1.25 level. Aredia 60mg x1 iv today. 4. 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 Renal US no mass, simple renal cyst persists. 5. General weakness, frequent falls, syncope suspect from adrenal insuff. poor nutritional status. 6. Hypokalemia due to diuretics, poor nutritional status resolved. Replace supplements.
[2020-04-26] MEDS: Hydrocortisone 10 MG Tablet PO (17:38)
[2020-04-26] MEDS: Potassium Chloride Oral Tablet 20 MEQ PO (17:41)
[2020-04-26] MEDS: Menthol/Lanolin/Calamine/Znox 113 GM Tube 1 APPLIC TOPICAL (22:09)
[2020-04-26] MEDS: Fluticasone 0.05% 1 SPRAY NASAL.SRY NASAL (22:09)
[2020-04-26] MEDS: Atorvastatin Calcium 10 MG Tablet PO (22:10)
[2020-04-27] VITALS (12 sets, daily range): BP systolic 145–161; BP diastolic 61–98; PULSE 97–108; RESP 16–18; TEMP 36.5–37.1; O2SAT 92–97
[2020-04-27] MEDS: 0.9% Normal Saline 1,000 ML 100 ML IV ×3 (03:44→20:33)
[2020-04-27 05:17] LABS: ALB/GLOB Ratio 0.8 RATIO (0.9-2.4); AST(SGOT) 51 U/L (15-37); Alanine Aminotransfer ALT/SGPT 80 U/L (13-56); Alkaline Phosphatase 59 U/L (45-117); Anion Gap 6 (5-15); BUN 45 mg/dL (7-18); BUN/Creat Ratio 22.3 RATIO (10-20); Calcium,Total 13.5 mg/dL (8.5-10.1); Chloride 110 mmol/L (98-107); Creatinine, Serum 2.02 mg/dL (0.55-1.02); EST Glomerular Filtration Rate 25 mL/min (>60); Est Glom Filt Rate - Afr Amer 31 mL/min (>60); Estimated Creatinine Clearance 18.45 ml/min; Globulin 2.6 g/dL (2.2-4.2); Glucose 92 mg/dL (74-106); Potassium 3.7 mmol/L (3.5-5.1); Protein, Total 4.6 g/dL (6.4-8.2); Sodium Level 143 mmol/L (136-145)
[2020-04-27] MEDS: Hydrocortisone 10 MG Tablet 20 MG PO (05:17)
[2020-04-27] MEDS: Menthol/Lanolin/Calamine/Znox 113 GM Tube 1 APPLIC TOPICAL ×2 (05:18→20:34)
[2020-04-27] MEDS: Potassium Chloride Oral Tablet 20 MEQ PO ×2 (08:38→17:07)
[2020-04-27] MEDS: Fludrocortisone Acetate 0.1 MG Tablet PO ×2 (08:39)
[2020-04-27] MEDS: Acetaminophen 500 MG Tablet 1000 MG PO (08:55)
--- NOTE | 2020-04-27 09:27 | CASEMGMT ---
Therapy expressed that patient needs to go somewhere for rehab. TYREE met with patient. SW asked her about discharge. She said she wants to go home. SW told her therapy is recommending she go somewhere for rehab. She agreed to have name put on TCU list as this is where she would want to go. SW offered to give her a list of SNF's and she declined. Plan: Patient is on the TCU list. She will need insurance authorization. Chel CORBETT MSW
--- NOTE | 2020-04-27 12:00 | PN.RENAL_ITS ---
Subjective: Complains of constipation, edema. Anasarca for low albumin. Creatinine stable. Calcium remains elevated at 13.5. Received aredia 60mg x1 yesterday. - Physical Exam Vitals/I&O's: Vital Signs Temp Pulse Resp BP Pulse Ox 97.7 F L 98 18 148/91 H 97 04/27/20 08:47 04/27/20 11:43 04/27/20 08:47 04/27/20 08:47 04/27/20 08:47 Oxygen Delivery Method Room Air Weight: 68.4 kg Body Mass Index (BMI) 27.6 Intake and Output for Last 24 Hours 04/25/20 04/26/20 04/27/20 23:59 23:59 23:59 Intake Total 2602.09 / 2602.09 4213.3367 / 4213.3367 445 / 445 Output Total 1900 / 1900 3925 / 3925 975 / 975 Balance 702.09 / 702.09 288.3367 / 288.3367 -530 / -530 General: Alert, Oriented x3, Cooperative Lungs: Clear to auscultation, Diminished Cardiovascular: Regular rate Abdomen: Bowel Sounds Present, Soft, Non Tender, Non-Distended Extremities: Edema - third spacing Musculoskeletal: - - gen weakness Psych/Mental Status: Normal Affect, Appropriate, Alert and oriented to time, place, person, mood and affect Microbiology Past 72 Hours 04/25/20 15:10 Urine, Clean Catch Urine Culture - Final Citrobacter freundii Laboratory Results 04/27/20 04:30: Vit D 1,25-Dihydroxy Pending 04/27/20 04:30: Sodium 143, Potassium 3.7, Chloride 110 H, Carbon Dioxide 27.0, Anion Gap 6, BUN 45 H, Creatinine 2.02 H, Estim Creat Clear Calc 18.45, Est GFR (MDRD) Af Amer 31 L, Est GFR (MDRD) Non-Af 25 L, BUN/Creatinine Ratio 22.3 H, Glucose 92, Calcium 13.5 H*, Total Bilirubin 0.40, AST 51 H, ALT 80 H, Alkaline Phosphatase 59, Total Protein 4.6 L, Albumin 2.0 L, Globulin 2.6, Albumin/Globulin Ratio 0.8 L Current Medications Acetaminophen (Acetaminophen 500 Mg Tablet) 1,000 mg PO Q6H PRN PRN PRN Reason: Pain Score 1-10 Last Admin: 04/27/20 08:55 Dose: 1,000 mg Documented by: Atorvastatin Calcium (Atorvastatin Calcium 10 Mg Tablet) 10 mg PO QHS [facility] Last Admin: 04/26/20 22:10 Dose: 10 mg Documented by: Calamine/Phenol (Menthol/Lanolin/Calamine/Znox 113 Gm Tube) 1 applic TOPICAL 0600,2200 [facility]; Protocol Last Admin: 04/27/20 05:18 Dose: 1 applicatio Documented by: Fludrocortisone Acetate (Fludrocortisone Acetate 0.1 Mg Tablet) 0.1 mg PO DAILY [facility] Last Admin: 04/27/20 08:39 Dose: 0.1 mg Documented by: Fluticasone Propionate (Fluticasone 0.05% 1 [place] Nasal.Sry) 1 spray [facility] Last Admin: 04/26/20 22:09 Dose: 1 spray Documented by: Furosemide (Furosemide 40 Mg Tablet) 40 mg PO X1 ONE Stop: 04/27/20 12:01 Hydrocortisone (Hydrocortisone 10 Mg Tablet) 10 mg PO DAILY@1800 [facility] Last Admin: 04/26/20 17:38 Dose: 10 mg Documented by: Hydrocortisone (Hydrocortisone 10 Mg Tablet) 20 mg PO DAILY@0600 [facility] Last Admin: 04/27/20 05:17 Dose: 20 mg Documented by: Sodium Chloride () 1,000 mls @ 100 mls/hr IV .Q10H [facility] Last Admin: 04/27/20 03:44 Dose: 100 mls/hr Documented by: Lactobacillus Acidophilus (Lactobacillus Acidophilus) 1 tablet PO DAILY [facility] Last Admin: 04/27/20 08:46 Dose: 1 tablet Documented by: Nutritional Formula (Lactose Free) (Ensure Enlive 120 Ml Liquid) 120 ml PO 4X/DAY [facility] Last Admin: 04/27/20 08:39 Dose: 120 ml Documented by: Ondansetron HCl (Ondansetron 4 Mg/2 Ml Vial) 4 mg IV Q8H PRN PRN PRN Reason: NAUSEA/VOMITING Potassium Chloride (Potassium Chloride Oral Tablet 20 Meq) 20 meq PO BIDCM [facility] Last Admin: 04/27/20 08:38 Dose: 20 meq Documented by: Sodium Chloride (0.9% Saline Lock 10 Ml Syringe) 10 - 40 ml IV UD PRN PRN Reason: SALINE FLUSH Last Admin: 04/26/20 10:57 Dose: 10 ml Documented by: Warfarin Sodium (Warfarin 2.5 Mg Tablet) 2.5 mg PO DAILY@1700 [facility] Last Admin: 04/26/20 07:57 Dose: Not Given Documented by: Medical Necessity - Tobacco Use Smoking Status: Never smoker Tobacco Use: Non-smoker Assessment/Plan All Active Problems (Last Reviewed 04/23/20 @ 02:[address] Jace Lantigua MD) History of non-ST elevation myocardial infarction (NSTEMI) (Resolved 04/2009) Debility (Resolved) Hypotensive episode (Resolved) Pyelonephritis, acute (Resolved) Sepsis (Resolved) Supratherapeutic INR (Resolved) Weakness (Resolved) Essential (primary) hypertension (Ruled-out) 1. ANGELA on CKD stage 3. Baseline creatinine 0.9 to 1.3 now at 2.0 in single kidney s/p left nephrectomy 2. Addisons dz continue hormonal replacement. BP improved. 3. Hypercalcemia with elevated vit D 1,25 level of 285. Await repeat level. Calcium remains elevated at 13.5. Received aredia yesterday. Continue to monitor. Lasix 40mg po x1 today. 4. Hypokalemia due to diuretics, poor nutritional status resolved. Replace supplements. 5. Constipation lactulose or Linzess DW primary service
[2020-04-27] MEDS: Furosemide 40 MG Tablet PO (12:17)
--- NOTE | 2020-04-27 12:46 | PN_ITS ---
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 Patient feels that her upper and lower body are swollen. Objective: Clinical Impression(s) from Imaging Studies Chest X-Ray 04/22/20 21:47 IMPRESSION: No acute thoracic pathology. Electronically Signed: Wily Vernon MD at 22:08 EST Tel , Service support , Brain CT 04/22/20 21:50 IMPRESSION: No acute intracranial abnormality. Stable mild chronic ischemic changes. Electronically Signed: Wily Vernon MD at 22:24 EST Tel , Service support , Renal Ultrasound 04/23/20 16:16 IMPRESSION: Simple cyst in the right kidney. Otherwise, normal sonographic appearance of the right kidney. No right hydronephrosis. Status post left nephrectomy. Electronically Signed: Wily Vernon MD at 17:11 EST Tel , Service support , Chest/Abdomen/Pelvis CT 04/26/20 09:43 IMPRESSION: 1. Small left and trace right pleural effusions. 2. Soft tissue induration in the presacral pelvis without focal fluid collection. May be sequela of prior radiation therapy or inflammation. Clinical correlation needed. 3. Heterogeneous sclerosis of the sacrum. Likely osteitis related to prior radiation therapy but is nonspecific. No discrete or expansile lesion. Electronically Signed: Bolivar Farris MD (Brooks) at 14:14 EST , Service support , Vitals/I&O's: Vital Signs Temp Pulse Resp BP Pulse Ox 98.0 F 100 18 156/89 H 97 04/27/20 12:21 04/27/20 12:21 04/27/20 12:21 04/27/20 12:21 04/27/20 12:21 Oxygen Delivery Method Room Air Weight: 150 lb 12.739 oz Body Mass Index (BMI) 27.6 Intake and Output for Last 24 Hours 04/25/20 04/26/20 04/27/20 23:59 23:59 23:59 Intake Total 2602.09 / 2602.09 4213.3367 / 4213.3367 2076.67 / 2076.67 Output Total 1900 / 1900 3925 / 3925 1775 / 1775 Balance 702.09 / 702.09 288.3367 / 288.3367 301.67 / 301.67 General: Alert, Oriented x3, Cooperative, Lethargic HEENT: Atraumatic, PERRLA, EOMI, Normocephalic Neck: Supple, No JVD, Negative Carotid Bruits Lungs: Clear to auscultation, Normal air movement Cardiovascular: Regular rate, No murmurs Abdomen: Bowel Sounds Present, Soft, Non Tender Extremities: Edema, - - Significant edema in the upper and lower extremities. Skin: No rashes, No breakdown Musculoskeletal: No Tenderness to Palpation of Joints or Extremities Neurological: Cranial nerves II-XII grossly intact Psych/Mental Status: Normal Affect, Appropriate Microbiology Past 72 Hours 04/25/20 15:10 Urine, Clean Catch Urine Culture - Final Citrobacter freundii Laboratory Results 04/27/20 04:30: Vit D 1,25-Dihydroxy Pending 04/27/20 04:30: Sodium 143, Potassium 3.7, Chloride 110 H, Carbon Dioxide 27.0, Anion Gap 6, BUN 45 H, Creatinine 2.02 H, Estim Creat Clear Calc 18.45, Est GFR (MDRD) Af Amer 31 L, Est GFR (MDRD) Non-Af 25 L, BUN/Creatinine Ratio 22.3 H, Glucose 92, Calcium 13.5 H*, Total Bilirubin 0.40, AST 51 H, ALT 80 H, Alkaline Phosphatase 59, Total Protein 4.6 L, Albumin 2.0 L, Globulin 2.6, Albumin/Globulin Ratio 0.8 L Current Medications Acetaminophen (Acetaminophen 500 Mg Tablet) 1,000 mg PO Q6H PRN PRN PRN Reason: Pain Score 1-10 Last Admin: 04/27/20 08:55 Dose: 1,000 mg Documented by: Atorvastatin Calcium (Atorvastatin Calcium 10 Mg Tablet) 10 mg PO QHS [facility] Last Admin: 04/26/20 22:10 Dose: 10 mg Documented by: Calamine/Phenol (Menthol/Lanolin/Calamine/Znox 113 Gm Tube) 1 applic TOPICAL 0600,2200 [facility]; Protocol Last Admin: 04/27/20 05:18 Dose: 1 applicatio Documented by: Fludrocortisone Acetate (Fludrocortisone Acetate 0.1 Mg Tablet) 0.1 mg PO DAILY [facility] Last Admin: 04/27/20 08:39 Dose: 0.1 mg Documented by: Fluticasone Propionate (Fluticasone 0.05% 1 [place] Nasal.Sry) 1 spray NASAL QHS [facility] Last Admin: 04/26/20 22:09 Dose: 1 spray Documented by: Hydrocortisone (Hydrocortisone 10 Mg Tablet) 10 mg PO DAILY@1800 [facility] Last Admin: 04/26/20 17:38 Dose: 10 mg Documented by: Hydrocortisone (Hydrocortisone 10 Mg Tablet) 20 mg PO DAILY@0600 [facility] Last Admin: 04/27/20 05:17 Dose: 20 mg Documented by: Sodium Chloride () 1,000 mls @ 100 mls/hr IV .Q10H [facility] Last Admin: 04/27/20 12:33 Dose: 100 mls/hr Documented by: Lactobacillus Acidophilus (Lactobacillus Acidophilus) 1 tablet PO DAILY [facility] Last Admin: 04/27/20 08:46 Dose: 1 tablet Documented by: Lactulose (Lactulose 20 Gm/30 Ml Udc) 10 gm PO DAILY [facility] Nutritional Formula (Lactose Free) (Ensure Enlive 120 Ml Liquid) 120 ml PO 4X/DAY [facility] Last Admin: 04/27/20 08:39 Dose: 120 ml Documented by: Ondansetron HCl (Ondansetron 4 Mg/2 Ml Vial) 4 mg IV Q8H PRN PRN PRN Reason: NAUSEA/VOMITING Potassium Chloride (Potassium Chloride Oral Tablet 20 Meq) 20 meq PO BIDCM [facility] Last Admin: 04/27/20 08:38 Dose: 20 meq Documented by: Sodium Chloride (0.9% Saline Lock 10 Ml Syringe) 10 - 40 ml IV UD PRN PRN Reason: SALINE FLUSH Last Admin: 04/26/20 10:57 Dose: 10 ml Documented by: Warfarin Sodium (Warfarin 2.5 Mg Tablet) 2.5 mg PO DAILY@1700 [facility] Last Admin: 04/26/20 07:57 Dose: Not Given Documented by: STROKE Vital Signs/Narrative: Vital Signs Temp Pulse Resp BP Pulse Ox 04/27/20 12:21 98.0 F 100 18 156/89 H 97 04/27/20 11:43 98 04/27/20 08:47 97.7 F L 97 18 148/91 H 97 Medical Necessity - Tobacco Use Smoking Status: Never smoker Tobacco Use: Non-smoker Assessment/Plan All Active Problems (Last Reviewed 04/23/20 @ 02:[address] Jace Lantigua MD) History of non-ST elevation myocardial infarction (NSTEMI) (Resolved 04/2009) Debility (Resolved) Hypotensive episode (Resolved) Pyelonephritis, acute (Resolved) Sepsis (Resolved) Supratherapeutic INR (Resolved) Weakness (Resolved) Essential (primary) hypertension (Ruled-out) Patient is a 75-year-old female who complains of constipation and edema. Calcium remains elevated at 13.5 mg/dL. Creatinine continues to be elevated. Normal potassium. Lasix 40 mg p.o. x1 ordered today for edema, per nephrology. Lactulose ordered for constipation. 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 x1 -Considering endocrinology consult per nephrology 2. HTN/HLD Assessment -Blood pressure is stable Plan -Continue with Norvasc -Continue with Lipitor 3. History of PE and DVT Assessment - INR 3.2 on 04/26/2020 Plan -Coumadin held DVT: Coumadin on hold due to INR of 3.2 Patient seen by Ryan Alva PA-C, under the supervision of Dr. Potts.
[2020-04-27] MEDS: Lactulose 20 GM/30 ML UDC PO (13:37)
[2020-04-27] MEDS: Hydrocortisone 10 MG Tablet PO (17:07)
[2020-04-27] MEDS: Fluticasone 0.05% 1 SPRAY NASAL.SRY NASAL (20:33)
[2020-04-27] MEDS: Atorvastatin Calcium 10 MG Tablet PO (20:33)
[2020-04-28] VITALS (9 sets, daily range): BP systolic 103–156; BP diastolic 69–97; PULSE 96–108; RESP 16–18; TEMP 36.5–36.8; O2SAT 94–96
[2020-04-28] MEDS: 0.9% Normal Saline 1,000 ML 100 ML IV ×2 (05:25→17:15)
[2020-04-28] MEDS: Hydrocortisone 10 MG Tablet 20 MG PO (05:26)
[2020-04-28 06:28] LABS: Absolute Lymphocyte Count 1.37 X10^3/uL (0.83-4.51); Absolute Neutrophil Count 8.5 X10^3/uL (2.0-7.7); Basophil# 0.03 X10^3/uL; Basophil% 0.3 % (0-1); Eosinophil# 0.54 X10^3/uL; Eosinophils% 4.8 % (0-5); Hematocrit 31.8 % (37-47); Lymphocyte # 1.37 X10^3/ul (4.0); Lymphocyte % 12.1 % (19-41); Mean Corp Hgb Conc 31.4 g/dL (32-36); Mean Corpuscular Hgb 28.9 pg (27.0-32.0); Mean Corpuscular Volume 91.9 fL (81-99); Mean Platelet Vol. 10.5 fl (6.2-12.0); Monocyte# 0.43 X10^3/uL; Monocyte% 3.8 % (0-10); NRBC Flagged by Analyzer 0 % (0-5); Neutrophil # 8.47 X10^3/uL (2.7-7.7); Neutrophil % 74.9 % (47-70); Platelet Count 332 K/mm3 (150-450); RBC Distribution Width CV 15.6 % (11.6-14.6); RBC Distribution Width SD 52.5 fl (35.1-43.9); Red Blood Count 3.46 M/mm3 (4.2-5.4); White Blood Count 11.3 K/mm3 (4.4-11.0)
[2020-04-28 06:36] LABS: International Normalized Ratio 2.5; Prothrombin Time (Protime)PT. 26.9 SECONDS (11.7-14.9)
[2020-04-28 06:57] LABS: Anion Gap 6 (5-15); BUN 44 mg/dL (7-18); BUN/Creat Ratio 21.6 RATIO (10-20); Calcium,Total 13.1 mg/dL (8.5-10.1); Chloride 108 mmol/L (98-107); Creatinine, Serum 2.04 mg/dL (0.55-1.02); EST Glomerular Filtration Rate 25 mL/min (>60); Est Glom Filt Rate - Afr Amer 30 mL/min (>60); Estimated Creatinine Clearance 18.27 ml/min; Glucose 82 mg/dL (74-106); Potassium 3.3 mmol/L (3.5-5.1); Sodium Level 142 mmol/L (136-145)
[2020-04-28] MEDS: Potassium Chloride Oral Tablet 20 MEQ PO ×2 (08:47→17:14)
[2020-04-28] MEDS: Lactulose 20 GM/30 ML UDC 10 GM PO (08:47)
--- NOTE | 2020-04-28 09:01 | DS.PCM_ITS ---
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 Jace Lantigua MD) Hypercalcemia (Chronic) Orthostatic hypotension (Chronic) Recurrent deep vein thrombosis (DVT) (Chronic) History of pulmonary embolism (Chronic) Hyperlipidemia (Chronic) 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 (Chronic) Sauk disease (Chronic) History of kidney cancer (Chronic) shelter (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 (Chronic) Frequent falls (Chronic) Hospital Course and Treatment Imaging Results: Clinical Impression(s) from Imaging Studies Chest X-Ray 04/22/20 21:47 IMPRESSION: No acute thoracic pathology. Electronically Signed: Wily Vernon MD at 22:08 EST Tel , Service support , Brain CT 04/22/20 21:50 IMPRESSION: No acute intracranial abnormality. Stable mild chronic ischemic changes. Electronically Signed: Wily Vernon MD at 22:24 EST Tel , Service support , Renal Ultrasound 04/23/20 16:16 IMPRESSION: Simple cyst in the right kidney. Otherwise, normal sonographic appearance of the right kidney. No right hydronephrosis. Status post left nephrectomy. Electronically Signed: Wily Vernon MD at 17:11 EST Tel , Service support , Chest/Abdomen/Pelvis CT 04/26/20 09:43 IMPRESSION: 1. Small left and trace right pleural effusions. 2. Soft tissue induration in the presacral pelvis without focal fluid collection. May be sequela of prior radiation therapy or inflammation. Clinical correlation needed. 3. Heterogeneous sclerosis of the sacrum. Likely osteitis related to prior radiation therapy but is nonspecific. No discrete or expansile lesion. Electronically Signed: Bolivar Farris MD (Brooks) at 14:14 EST , Service support , Operations: None Summary of Care Provided: Patient is a 75-year-old female who was admitted on 04/22/2020 with a chief complaint of fatigue and jitteriness. Patient was admitted for hypokalemia and hypercalcemia. This is the patient's fourth admission in less than 30 days secondary to hypercalcemia. Nephrology consulted due to patient's significant comorbidities. Multiple imaging studies failed to discover the source of the patient's continually elevated calcium. Patient's calcium remains elevated despite therapy. Vitamin D level pending. A consensus decision of the hospitalist, income tax adjuster, patient's family and patient agree that the patient would benefit from transfer to higher level of care. Patient being transferred to [facility]. 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 HTN/HLD Assessment -Blood pressure is stable Plan -Continue with Norvasc -Continue with Lipitor 3. History of PE and DVT Assessment - INR 2.5 on 04/28/2020 Plan -Coumadin held 4) Acute cystitis Assessment - Urine culture revealed Citrobacter freundi - Mild leukocytosis: 11.3 K/mm3 - Vital signs stable, no fever Plan -On Rocephin 100mls/hr IV Q24 KARLY DVT: Coumadin on hold due to supratherapeutic INR Patient seen by Ryan Alva PA-C, under the supervision of Dr. Potts. Subjective: 75-year-old female that appears in better health and spirits than yesterday. Still edematous in upper and lower extremities. Patient does report that constipation has resolved, reports multiple bowel movements. Objective: Clinical Impression(s) from Imaging Studies Chest X-Ray 04/22/20 21:47 IMPRESSION: No acute thoracic pathology. Electronically Signed: Wily Vernon MD at 22:08 EST Tel , Service support , Brain CT 04/22/20 21:50 IMPRESSION: No acute intracranial abnormality. Stable mild chronic ischemic changes. Electronically Signed: Wily Vernon MD at 22:24 EST Tel , Service support , Renal Ultrasound 04/23/20 16:16 IMPRESSION: Simple cyst in the right kidney. Otherwise, normal sonographic appearance of the right kidney. No right hydronephrosis. Status post left nephrectomy. Electronically Signed: Wily Vernon MD at 17:11 EST Tel , Service support , Chest/Abdomen/Pelvis CT 04/26/20 09:43 IMPRESSION: 1. Small left and trace right pleural effusions. 2. Soft tissue induration in the presacral pelvis without focal fluid collection. May be sequela of prior radiation therapy or inflammation. Clinical correlation needed. 3. Heterogeneous sclerosis of the sacrum. Likely osteitis related to prior radiation therapy but is nonspecific. No discrete or expansile lesion. Electronically Signed: Bolivar Farris MD (Brooks) at 14:14 EST , Service support , Microbiology 04/25/20 15:10 Urine, Clean Catch Urine Culture - Final Citrobacter freundii 04/22/20 21:35 Mucosa - Nose SARS-CoV-2 Antigen (Rapid) - Final - Physical Exam Vitals/I&O's: Vital Signs Temp Pulse Resp BP Pulse Ox 97.7 F L 104 H 18 103/69 95 04/28/20 08:49 04/28/20 08:49 04/28/20 08:49 04/28/20 08:49 04/28/20 08:49 Oxygen Delivery Method Room Air Weight: 150 lb 12.739 oz Body Mass Index (BMI) 27.6 Intake and Output for Last 24 Hours 04/26/20 04/27/20 04/28/20 23:59 23:59 23:59 Intake Total 4213.3367 / 4213.3367 2996.67 / 3216.67 1406.67 / 1406.67 Output Total 3925 / 3925 2325 / 3675 2625 / 2625 Balance 288.3367 / 288.3367 671.67 / -458.33 -1218.33 / -1218.33 General: Alert, Disoriented, - - Edematous upper and lower extremities HEENT: Atraumatic, PERRLA, EOMI, Normocephalic Neck: Supple, No JVD, Negative Carotid Bruits Lungs: Clear to auscultation, Normal air movement Cardiovascular: Regular rate, No murmurs Abdomen: Bowel Sounds Present, Soft, Non Tender Extremities: Edema Skin: No rashes, No breakdown Musculoskeletal: No Tenderness to Palpation of Joints or Extremities Neurological: Cranial nerves II-XII grossly intact Psych/Mental Status: Normal Affect, Appropriate Microbiology Past 72 Hours 04/25/20 15:10 Urine, Clean Catch Urine Culture - Final Citrobacter freundii Laboratory Results 04/28/20 06:00: PT 26.9 H, INR 2.5 04/28/20 06:00: Sodium 142, Potassium 3.3 L, Chloride 108 H, Carbon Dioxide 28.0, Anion Gap 6, BUN 44 H, Creatinine 2.04 H, Estim Creat Clear Calc 18.27, Est GFR (MDRD) Af Amer 30 L, Est GFR (MDRD) Non-Af 25 L, BUN/Creatinine Ratio 21.6 H, Glucose 82, Calcium 13.1 H* 04/28/20 06:00: WBC 11.3 H, RBC 3.46 L, Hgb 10.0 L, Hct 31.8 L, MCV 91.9, MCH 28.9, MCHC 31.4 L, RDW Std Deviation 52.5 H, RDW Coeff of Slava 15.6 H, Plt Count 332, MPV 10.5, Immature Gran % (Auto) 4.100 H, Neut % (Auto) 74.9 H, Lymph % (Auto) 12.1 L, [place] % (Auto) 3.8, Eos % (Auto) 4.8, Baso % (Auto) 0.3, Absolute Neuts (auto) 8.5 H, Absolute Lymphs (auto) 1.37, Nucleated RBC % 0 Current Medications Acetaminophen (Acetaminophen 500 Mg Tablet) 1,000 mg PO Q6H PRN PRN PRN Reason: Pain Score 1-10 Last Admin: 04/27/20 08:55 Dose: 1,000 mg Documented by: Atorvastatin Calcium (Atorvastatin Calcium 10 Mg Tablet) 10 mg PO QHS [facility] Last Admin: 04/27/20 20:33 Dose: 10 mg Documented by: Calamine/Phenol (Menthol/Lanolin/Calamine/Znox 113 Gm Tube) 1 applic TOPICAL 0600,2200 [facility]; Protocol Last Admin: 04/28/20 05:26 Dose: Not Given Documented by: Fludrocortisone Acetate (Fludrocortisone Acetate 0.1 Mg Tablet) 0.1 mg PO DAILY [facility] Last Admin: 04/27/20 08:39 Dose: 0.1 mg Documented by: Fluticasone Propionate (Fluticasone 0.05% 1 [place] Nasal.Sry) 1 spray NASAL QHS [facility] Last Admin: 04/27/20 20:33 Dose: 1 spray Documented by: Hydrocortisone (Hydrocortisone 10 Mg Tablet) 10 mg PO DAILY@1800 [facility] Last Admin: 04/27/20 17:07 Dose: 10 mg Documented by: Hydrocortisone (Hydrocortisone 10 Mg Tablet) 20 mg PO DAILY@0600 [facility] Last Admin: 04/28/20 05:26 Dose: 20 mg Documented by: Sodium Chloride () 1,000 mls @ 100 mls/hr IV .Q10H [facility] Last Admin: 04/28/20 05:25 Dose: 100 mls/hr Documented by: Ceftriaxone Sodium (Rocephin) 1 gm in 50 mls @ 100 mls/hr IV Q24 [facility] Lactobacillus Acidophilus (Lactobacillus Acidophilus) 1 tablet PO DAILY [facility] Last Admin: 04/28/20 08:47 Dose: 1 tablet Documented by: Lactulose (Lactulose 20 Gm/30 Ml Udc) 10 gm PO DAILY [facility] Last Admin: 04/28/20 08:47 Dose: 10 gm Documented by: Methylprednisolone (Methylprednisolone 125 Mg/2 Ml Vial) 80 mg IV Q8 [facility] Nutritional Formula (Lactose Free) (Ensure Enlive 120 Ml Liquid) 120 ml PO 4X/DAY [facility] Last Admin: 04/28/20 08:48 Dose: 120 ml Documented by: Ondansetron HCl (Ondansetron 4 Mg/2 Ml Vial) 4 mg IV Q8H PRN PRN PRN Reason: NAUSEA/VOMITING Potassium Chloride (Potassium Chloride Oral Tablet 20 Meq) 20 meq PO BIDCM [facility] Last Admin: 04/28/20 08:47 Dose: 20 meq Documented by: Sodium Chloride (0.9% Saline Lock 10 Ml Syringe) 10 - 40 ml IV UD PRN PRN Reason: SALINE FLUSH Last Admin: 04/26/20 10:57 Dose: 10 ml Documented by: Warfarin Sodium (Warfarin 2.5 Mg Tablet) 2.5 mg PO DAILY@1700 [facility] Last Admin: 04/27/20 17:03 Dose: Not Given Documented by: Home Medications: Medications to take at Discharge L.acidoph,Paracasei, B.lactis [Probiotic] 1 ea PO DAILY 03/24/16 nitroglycerin 0.4 mg sublingual tablet 0.4 mg SUBLINGUAL Q5-15M PRN 05/21/18 Cholecalciferol (Vitamin D3) [Vitamin D3] 1,000 unit PO DAILY 03/20/20 Cyanocobalamin (Vitamin B-12) [B-12] 1,000 mcg PO DAILY 03/20/20 Dupilumab [Dupixent Pen] 300 mg SQ [id number] #0 04/04/20 Acetaminophen [Tylenol] 1,000 mg PO Q6H PRN tab 04/08/20 Fluticasone 0.05% [Flonase Nasal [place]] 1 spray NASAL QHS #1 nasal.sry 04/08/20 Hydrocortisone [Cortef] 10 mg PO DAILY@1800 #30 tab 04/08/20 Hydrocortisone [Cortef] 20 mg PO DAILY@0600 #60 tab 04/08/20 Menthol/Lanolin/Calamine/Znox [Calmoseptine Ointment] 1 applic TOPICAL 0600,2200 tube 04/08/20 Warfarin [Coumadin] 2.5 mg PO DAILY@1700 #30 tab 04/08/20 Atorvastatin Calcium [Lipitor] 10 mg PO QHS 04/09/20 Florinef 0.1 mg PO DAILY 04/23/20 Primary Care Physician: Amos Fulton MD [Primary Care Provider] - Medical Necessity - Tobacco Use Smoking Status: Never smoker Tobacco Use: Non-smoker Meaningful Use Info Meaningful Use Diagnoses (Choose all that apply): None applicable
--- NOTE | 2020-04-28 09:08 | CASEMGMT ---
Patient is being transferred to [facility]. TYREE called Hilda with [facility] and let her know this information. Chel CORBETT MSW
--- NOTE | 2020-04-28 09:28 | CASEMGMT ---
According to [employer] website, in network tertiary care facilities include the following: [facility], [place], [facility], [facility], [facility], [facility] and .
--- NOTE | 2020-04-28 09:36 | CASEMGMT ---
Plan for pt was to trf to [facility]. Verified with [employer] Reviewed website and tc to [facility], [facility] is not in network. Notified and Ryan PRICE
[2020-04-28] MEDS: Ceftriaxone 1 GM/50 ML BAG IV (09:50)
--- NOTE | 2020-04-28 11:51 | CASEMGMT ---
Jewels at [facility] notified that pt to be tranferred to . Jeffrey HAWKINS CM
[2020-04-28] MEDS: MethylPREDNISolone 125 MG/2 ML Vial 80 MG IV ×2 (15:13→21:31)
--- NOTE | 2020-04-28 15:17 | PN.RENAL_ITS ---
Subjective: calcium remains elevated despite iv fluids, pamidronate, lasix. Creatinine 2.0 in single kidney, baseline 1.2. Still with third spacing with hypoalbuminemia - Physical Exam Vitals/I&O's: Vital Signs Temp Pulse Resp BP Pulse Ox 98.2 F 96 18 155/97 H 95 04/28/20 14:50 04/28/20 14:50 04/28/20 14:50 04/28/20 14:50 04/28/20 14:50 Oxygen Delivery Method Room Air Weight: 68.4 kg Body Mass Index (BMI) 27.6 Intake and Output for Last 24 Hours 04/26/20 04/27/20 04/28/20 23:59 23:59 23:59 Intake Total 4213.3367 / 4213.3367 2996.67 / 3216.67 1696.67 / 1696.67 Output Total 3925 / 3925 2325 / 3675 3550 / 3550 Balance 288.3367 / 288.3367 671.67 / -458.33 -1853.33 / -1853.33 General: Alert, - - weak Lungs: Clear to auscultation Cardiovascular: Regular rate Extremities: Edema - upper, lower extrem Psych/Mental Status: Alert and oriented to time, place, person, mood and affect Microbiology Past 72 Hours 04/25/20 15:10 Urine, Clean Catch Urine Culture - Final Citrobacter freundii Laboratory Results 04/28/20 06:00: PT 26.9 H, INR 2.5 04/28/20 06:00: Sodium 142, Potassium 3.3 L, Chloride 108 H, Carbon Dioxide 28.0, Anion Gap 6, BUN 44 H, Creatinine 2.04 H, Estim Creat Clear Calc 18.27, Est GFR (MDRD) Af Amer 30 L, Est GFR (MDRD) Non-Af 25 L, BUN/Creatinine Ratio 21.6 H, Glucose 82, Calcium 13.1 H* 04/28/20 06:00: WBC 11.3 H, RBC 3.46 L, Hgb 10.0 L, Hct 31.8 L, MCV 91.9, MCH 2 8.9, MCHC 31.4 L, RDW Std Deviation 52.5 H, RDW Coeff of Slava 15.6 H, Plt Count 332, MPV 10.5, Immature Gran % (Auto) 4.100 H, Neut % (Auto) 74.9 H, Lymph % (Auto) 12.1 L, [place] % (Auto) 3.8, Eos % (Auto) 4.8, Baso % (Auto) 0.3, Absolute Neuts (auto) 8.5 H, Absolute Lymphs (auto) 1.37, Nucleated RBC % 0 Current Medications Acetaminophen (Acetaminophen 500 Mg Tablet) 1,000 mg PO Q6H PRN PRN PRN Reason: Pain Score 1-10 Last Admin: 04/27/20 08:55 Dose: 1,000 mg Documented by: Atorvastatin Calcium (Atorvastatin Calcium 10 Mg Tablet) 10 mg PO QHS [facility] Last Admin: 04/27/20 20:33 Dose: 10 mg Documented by: Calamine/Phenol (Menthol/Lanolin/Calamine/Znox 113 Gm Tube) 1 applic TOPICAL 0600,2200 [facility]; Protocol Last Admin: 04/28/20 05:26 Dose: Not Given Documented by: Fludrocortisone Acetate (Fludrocortisone Acetate 0.1 Mg Tablet) 0.1 mg PO DAILY [facility] Last Admin: 04/27/20 08:39 Dose: 0.1 mg Documented by: Fluticasone Propionate (Fluticasone 0.05% 1 [place] Nasal.Sry) 1 spray NASAL QHS [facility] Last Admin: 04/27/20 20:33 Dose: 1 spray Documented by: Hydrocortisone (Hydrocortisone 10 Mg Tablet) 10 mg PO DAILY@1800 [facility] Last Admin: 04/27/20 17:07 Dose: 10 mg Documented by: Hydrocortisone (Hydrocortisone 10 Mg Tablet) 20 mg PO DAILY@0600 [facility] Last Admin: 04/28/20 05:26 Dose: 20 mg Documented by: Sodium Chloride () 1,000 mls @ 100 mls/hr IV .Q10H [facility] Last Admin: 04/28/20 05:25 Dose: 100 mls/hr Documented by: Ceftriaxone Sodium (Rocephin) 1 gm in 50 mls @ 100 mls/hr IV Q24 [facility] Last Infusion: 04/28/20 10:40 Dose: Infused Documented by: Lactobacillus Acidophilus (Lactobacillus Acidophilus) 1 tablet PO DAILY [facility] Last Admin: 04/28/20 08:47 Dose: 1 tablet Documented by: Lactulose (Lactulose 20 Gm/30 Ml Udc) 10 gm PO DAILY [facility] Last Admin: 04/28/20 08:47 Dose: 10 gm Documented by: Methylprednisolone (Methylprednisolone 125 Mg/2 Ml Vial) 80 mg IV Q8 [facility] Last Admin: 04/28/20 15:13 Dose: 80 mg Documented by: Nutritional Formula (Lactose Free) (Ensure Enlive 120 Ml Liquid) 120 ml PO 4X/DAY [facility] Last Admin: 04/28/20 15:13 Dose: 120 ml Documented by: Ondansetron HCl (Ondansetron 4 Mg/2 Ml Vial) 4 mg IV Q8H PRN PRN PRN Reason: NAUSEA/VOMITING Potassium Chloride (Potassium Chloride Oral Tablet 20 Meq) 20 meq PO BIDCM [facility] Last Admin: 04/28/20 08:47 Dose: 20 meq Documented by: Sodium Chloride (0.9% Saline Lock 10 Ml Syringe) 10 - 40 ml IV UD PRN PRN Reason: SALINE FLUSH Last Admin: 04/26/20 10:57 Dose: 10 ml Documented by: Warfarin Sodium (Warfarin 2.5 Mg Tablet) 2.5 mg PO DAILY@1700 [facility] Last Admin: 04/27/20 17:03 Dose: Not Given Documented by: Medical Necessity - Tobacco Use Smoking Status: Never smoker Tobacco Use: Non-smoker Assessment/Plan All Active Problems (Last Reviewed 04/23/20 @ 02:[address] Jace Lantigua MD) History of non-ST elevation myocardial infarction (NSTEMI) (Resolved 04/2009) Debility (Resolved) Hypotensive episode (Resolved) Pyelonephritis, acute (Resolved) Sepsis (Resolved) Supratherapeutic INR (Resolved) Weakness (Resolved) Essential (primary) hypertension (Ruled-out) 1. ANGELA on CKD stage 3. Baseline creatinine 0.9 to 1.3 now at 2.0 in single kidney s/p left nephrectomy 2. Addisons dz continue hormonal replacement. BP stable 3. Hypercalcemia with elevated vit D 1,25 level of 285 in Mar, repeat pending. ACalcium remains elevated despite iv fluids, lasix, pamidronate. await transfer to tertiary [facility]
[2020-04-28] MEDS: Hydrocortisone 10 MG Tablet PO (17:14)
[2020-04-28] MEDS: Atorvastatin Calcium 10 MG Tablet PO (21:31)
[2020-04-28] MEDS: Menthol/Lanolin/Calamine/Znox 113 GM Tube 1 APPLIC TOPICAL (21:31)
[2020-04-28] MEDS: Fluticasone 0.05% 1 SPRAY NASAL.SRY NASAL (21:32)
[2020-04-29] VITALS (9 sets, daily range): BP systolic 154–163; BP diastolic 94–100; PULSE 90–102; RESP 16–18; TEMP 36.6–37.3; O2SAT 92–98
[2020-04-29] MEDS: 0.9% Normal Saline 1,000 ML 100 ML IV ×3 (03:36→23:29)
[2020-04-29] MEDS: MethylPREDNISolone 125 MG/2 ML Vial 80 MG IV ×3 (05:34→21:12)
[2020-04-29] MEDS: Hydrocortisone 10 MG Tablet 20 MG PO (05:34)
[2020-04-29 08:52] LABS: Anion Gap 10 (5-15); BUN 53 mg/dL (7-18); BUN/Creat Ratio 22.5 RATIO (10-20); Calcium,Total 14.3 mg/dL (8.5-10.1); Chloride 106 mmol/L (98-107); Creatinine, Serum 2.36 mg/dL (0.55-1.02); EST Glomerular Filtration Rate 21 mL/min (>60); Est Glom Filt Rate - Afr Amer 26 mL/min (>60); Estimated Creatinine Clearance 15.79 ml/min; Glucose 189 mg/dL (74-106); Potassium 3.7 mmol/L (3.5-5.1); Sodium Level 140 mmol/L (136-145)
[2020-04-29] MEDS: Fludrocortisone Acetate 0.1 MG Tablet PO (09:31)
[2020-04-29] MEDS: Potassium Chloride Oral Tablet 20 MEQ PO ×2 (09:31→17:55)
[2020-04-29] MEDS: Lactulose 20 GM/30 ML UDC 10 GM PO (09:32)
[2020-04-29] MEDS: Ceftriaxone 1 GM/50 ML BAG IV (11:07)
--- NOTE | 2020-04-29 14:41 | DS.PCM_ITS ---
Discharge Date and Diagnosis Date of Admission: 04/22/20 Date of Discharge: 04/29/20 - Patient was supposed to be discharged yesterday, waiting on bed from - Primary Discharge Diagnosis Acute Problems: Chronic hypercalcemia/ANGELA on CKD 3/[place]'s disease - Secondary Discharge Diagnosis Chronic Problems: Chronic Problems (Last Reviewed 04/23/20 @ 02:[address] Jace Lantigua MD) Hypercalcemia (Chronic) Orthostatic hypotension (Chronic) Recurrent deep vein thrombosis (DVT) (Chronic) History of pulmonary embolism (Chronic) Hyperlipidemia (Chronic) 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 (Chronic) Kyler disease (Chronic) History of kidney cancer (Chronic) care home (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 (Chronic) Frequent falls (Chronic) Hospital Course and Treatment Imaging Results: Clinical Impression(s) from Imaging Studies Chest X-Ray 04/22/20 21:47 IMPRESSION: No acute thoracic pathology. Electronically Signed: Wily Vernon MD at 22:08 EST Tel , Service support , Brain CT 04/22/20 21:50 IMPRESSION: No acute intracranial abnormality. Stable mild chronic ischemic changes. Electronically Signed: Wily Vernon MD at 22:24 EST Tel , Service support , Renal Ultrasound 04/23/20 16:16 IMPRESSION: Simple cyst in the right kidney. Otherwise, normal sonographic appearance of the right kidney. No right hydronephrosis. Status post left nephrectomy. Electronically Signed: Wily Vernon MD at 17:11 EST Tel , Service support , Chest/Abdomen/Pelvis CT 04/26/20 09:43 IMPRESSION: 1. Small left and trace right pleural effusions. 2. Soft tissue induration in the presacral pelvis without focal fluid collection. May be sequela of prior radiation therapy or inflammation. Clinical correlation needed. 3. Heterogeneous sclerosis of the sacrum. Likely osteitis related to prior radiation therapy but is nonspecific. No discrete or expansile lesion. Electronically Signed: Bolivar Farris MD (Bro[place]) at 14:14 EST , Service support , Microbiology 04/25/20 15:10 Urine, Clean Catch Urine Culture - Final Citrobacter freundii 04/22/20 21:35 Mucosa - Nose SARS-CoV-2 Antigen (Rapid) - Final Progress note from Dr. So Tarango, nephrology Subjective: calcium remains elevated despite iv fluids, pamidronate, lasix. Creatinine 2.0 in single kidney, baseline 1.2. Still with third spacing with hypoalbuminemia - Physical Exam Vitals/I&O's: Vital Signs Temp Pulse Resp BP Pulse Ox 98.2 F 96 18 155/97 H 95 04/28/20 14:50 04/28/20 14:50 04/28/20 14:50 04/28/20 14:50 04/28/20 14:50 Oxygen Delivery Method Room Air Weight: 68.4 kg Body Mass Index (BMI) 27.6 Intake and Output for Last 24 Hours 04/26/20 04/27/20 04/28/20 23:59 23:59 23:59 Intake Total 4213.3367 / 4213.3367 2996.67 / 3216.67 1696.67 / 1696.67 Output Total 3925 / 3925 2325 / 3675 3550 / 3550 Balance 288.3367 / 288.3367 671.67 / -458.33 -1853.33 / -1853.33 General: Alert, - - weak Lungs: Clear to auscultation Cardiovascular: Regular rate Extremities: Edema - upper, lower extrem Psych/Mental Status: Alert and oriented to time, place, person, mood and affect Microbiology Past 72 Hours 04/25/20 15:10 Urine, Clean Catch Urine Culture - Final Citrobacter freundii Laboratory Results 04/28/20 06:00: PT 26.9 H, INR 2.5 04/28/20 06:00: Sodium 142, Potassium 3.3 L, Chloride 108 H, Carbon Dioxide 28.0, Anion Gap 6, BUN 44 H, Creatinine 2.04 H, Estim Creat Clear Calc 18.27, Est GFR (MDRD) Af Amer 30 L, Est GFR (MDRD) Non-Af 25 L, BUN/Creatinine Ratio 21.6 H, Glucose 82, Calcium 13.1 H* 04/28/20 06:00: WBC 11.3 H, RBC 3.46 L, Hgb 10.0 L, Hct 31.8 L, MCV 91.9, MCH 28.9, MCHC 31.4 L, RDW Std Deviation 52.5 H, RDW Coeff of Slava 15.6 H, Plt Count 332, MPV 10.5, Immature Gran % (Auto) 4.100 H, Neut % (Auto) 74.9 H, Lymph % (Auto) 12.1 L, [place] % (Auto) 3.8, Eos % (Auto) 4.8, Baso % (Auto) 0.3, Absolute Neuts (auto) 8.5 H, Absolute Lymphs (auto) 1.37, Nucleated RBC % 0 Current Medications Acetaminophen (Acetaminophen 500 Mg Tablet) 1,000 mg PO Q6H PRN PRN PRN Reason: Pain Score 1-10 Last Admin: 04/27/20 08:55 Dose: 1,000 mg Documented by: Atorvastatin Calcium (Atorvastatin Calcium 10 Mg Tablet) 10 mg PO QHS [facility] Last Admin: 04/27/20 20:33 Dose: 10 mg Documented by: Calamine/Phenol (Menthol/Lanolin/Calamine/Znox 113 Gm Tube) 1 applic TOPICAL 0600,2200 [facility]; Protocol Last Admin: 04/28/20 05:26 Dose: Not Given Documented by: Fludrocortisone Acetate (Fludrocortisone Acetate 0.1 Mg Tablet) 0.1 mg PO DAILY [facility] Last Admin: 04/27/20 08:39 Dose: 0.1 mg Documented by: Fluticasone Propionate (Fluticasone 0.05% 1 [place] Nasal.Sry) 1 spray NASAL QHS [facility] Last Admin: 04/27/20 20:33 Dose: 1 spray Documented by: Hydrocortisone (Hydrocortisone 10 Mg Tablet) 10 mg PO DAILY@1800 [facility] Last Admin: 04/27/20 17:07 Dose: 10 mg Documented by: Hydrocortisone (Hydrocortisone 10 Mg Tablet) 20 mg PO DAILY@0600 [facility] Last Admin: 04/28/20 05:26 Dose: 20 mg Documented by: Sodium Chloride () 1,000 mls @ 100 mls/hr IV .Q10H [facility] Last Admin: 04/28/20 05:25 Dose: 100 mls/hr Documented by: Ceftriaxone Sodium (Rocephin) 1 gm in 50 mls @ 100 mls/hr IV Q24 [facility] Last Infusion: 04/28/20 10:40 Dose: Infused Documented by: Lactobacillus Acidophilus (Lactobacillus Acidophilus) 1 tablet PO DAILY [facility] Last Admin: 04/28/20 08:47 Dose: 1 tablet Documented by: Lactulose (Lactulose 20 Gm/30 Ml Udc) 10 gm PO DAILY [facility] Last Admin: 04/28/20 08:47 Dose: 10 gm Documented by: Methylprednisolone (Methylprednisolone 125 Mg/2 Ml Vial) 80 mg IV Q8 [facility] Last Admin: 04/28/20 15:13 Dose: 80 mg Documented by: Nutritional Formula (Lactose Free) (Ensure Enlive 120 Ml Liquid) 120 ml PO 4X/DAY [facility] Last Admin: 04/28/20 15:13 Dose: 120 ml Documented by: Ondansetron HCl (Ondansetron 4 Mg/2 Ml Vial) 4 mg IV Q8H PRN PRN PRN Reason: NAUSEA/VOMITING Potassium Chloride (Potassium Chloride Oral Tablet 20 Meq) 20 meq PO BIDCM [facility] Last Admin: 04/28/20 08:47 Dose: 20 meq Documented by: Sodium Chloride (0.9% Saline Lock 10 Ml Syringe) 10 - 40 ml IV UD PRN PRN Reason: SALINE FLUSH Last Admin: 04/26/20 10:57 Dose: 10 ml Documented by: Warfarin Sodium (Warfarin 2.5 Mg Tablet) 2.5 mg PO DAILY@1700 [facility] Last Admin: 04/27/20 17:03 Dose: Not Given Documented by: Medical Necessity - Tobacco Use Smoking Status: Never smoker Tobacco Use: Non-smoker Assessment/Plan All Active Problems (Last Reviewed 04/23/20 @ 02:[address] Jace Lantigua MD) History of non-ST elevation myocardial infarction (NSTEMI) (Resolved 04/2009) Debility (Resolved) Hypotensive episode (Resolved) Pyelonephritis, acute (Resolved) Sepsis (Resolved) Supratherapeutic INR (Resolved) Weakness (Resolved) Essential (primary) hypertension (Ruled-out) 1. ANGELA on CKD stage 3. Baseline creatinine 0.9 to 1.3 now at 2.0 in single kidney s/p left nephrectomy 2. Addisons dz continue hormonal replacement. BP stable 3. Hypercalcemia with elevated vit D 1,25 level of 285 in Mar, repeat pending. ACalcium remains elevated despite iv fluids, lasix, pamidronate. await transfer to tertiary care center Operations: None Summary of Care Provided: Patient is a 75-year-old female who was admitted on 04/22/2020 with a chief complaint of fatigue and jitteriness. Patient was admitted for hypokalemia and hypercalcemia. This is the patient's fourth admission in less than 30 days secondary to hypercalcemia. Nephrology consulted due to patient's significant comorbidities. Multiple imaging studies failed to discover the source of the patient's continually elevated calcium. Patient's calcium remains elevated despite therapy. Vitamin D level pending. A consensus decision of the hospitalist, photocopier technician, patient's family and patient agree that the patient would benefit from transfer to higher level of care. Patient was supposed to be transferred yesterday 04/28/2020, [facility] predicts admission later on . 1) Chronic hypercalcemia/ANGELA on CKD3/Addisons disease Assessment - Vitamin D 1?25 pending - Calcium: 14.3 mg/dL on 04/29/2020 - Potassium; 3.7 mmol/L 04/29/2020 - Patient calcium unresponsive to Solu-Medrol 80 mg IV every 8 for potential Sarcoidosis Plan - Transfer to [facility] 2. HTN/HLD Assessment -Blood pressure is stable Plan -Continue with Norvasc -Continue with Lipitor 3. History of PE and DVT Assessment - INR 2.5 on 04/28/2020 Plan -Coumadin held 4) Acute cystitis Assessment - Urine culture revealed Citrobacter freundi - Mild leukocytosis: 11.3 K/mm3 - Vital signs stable, no fever Plan -On Rocephin 100mls/hr IV Q24 [facility] Patient seen by Ryan Alva PA-C, under the supervision of Dr. Potts. Subjective: Patient is a 75-year-old female who is resting comfortably in bed. Patient condition appears markedly improved from the past few days. Patient appears in good spirits. Objective: Clinical Impression(s) from Imaging Studies Chest X-Ray 04/22/20 21:47 IMPRESSION: No acute thoracic pathology. Electronically Signed: Wily Vernon MD at 22:08 EST Tel , Service support , Brain CT 04/22/20 21:50 IMPRESSION: No acute intracranial abnormality. Stable mild chronic ischemic changes. Electronically Signed: Wily Vernon MD at 22:24 EST Tel , Service support , Renal Ultrasound 04/23/20 16:16 IMPRESSION: Simple cyst in the right kidney. Otherwise, normal sonographic appearance of the right kidney. No right hydronephrosis. Status post left nephrectomy. Electronically Signed: Wily Vernon MD at 17:11 EST Tel , Service support , Chest/Abdomen/Pelvis CT 04/26/20 09:43 IMPRESSION: 1. Small left and trace right pleural effusions. 2. Soft tissue induration in the presacral pelvis without focal fluid collection. May be sequela of prior radiation therapy or inflammation. Clinical correlation needed. 3. Heterogeneous sclerosis of the sacrum. Likely osteitis related to prior radiation therapy but is nonspecific. No discrete or expansile lesion. Electronically Signed: Bolivar Farris MD (Brooks) at 14:14 EST , Service support , - Physical Exam Vitals/I&O's: Vital Signs Temp Pulse Resp BP Pulse Ox 98.6 F 97 18 160/98 H 98 04/29/20 09:27 04/29/20 09:27 04/29/20 09:27 04/29/20 09:27 04/29/20 09:27 Oxygen Delivery Method Room Air Weight: 150 lb 12.739 oz Body Mass Index (BMI) 27.6 Intake and Output for Last 24 Hours 04/27/20 04/28/20 04/29/20 23:59 23:59 23:59 Intake Total 2996.67 / 3216.67 2936.67 / 3056.67 1470 / 1470 Output Total 2325 / 3675 4550 / 5400 1750 / 1750 Balance 671.67 / -458.33 -1613.33 / -2343.33 -280 / -280 General: Alert, Cooperative HEENT: Atraumatic, PERRLA, EOMI, Normocephalic Neck: Supple, No JVD, Negative Carotid Bruits Lungs: Clear to auscultation, Normal air movement Cardiovascular: Regular rate, No murmurs Abdomen: Bowel Sounds Present, Soft, Non Tender Extremities: No edema, Capillary Refill Less than 3 Seconds, Edema, - - Edema in upper and lower extremities Skin: No rashes, No breakdown Musculoskeletal: No Tenderness to Palpation of Joints or Extremities Neurological: Cranial nerves II-XII grossly intact Psych/Mental Status: Normal Affect, Appropriate Microbiology Past 72 Hours 04/25/20 15:10 Urine, Clean Catch Urine Culture - Final Citrobacter freundii Laboratory Results 04/29/20 08:15: Sodium 140, Potassium 3.7, Chloride 106, Carbon Dioxide 24.0, Anion Gap 10, BUN 53 H, Creatinine 2.36 H, Estim Creat Clear Calc 15.79, Est GFR (MDRD) Af Amer 26 L, Est GFR (MDRD) Non-Af 21 L, BUN/Creatinine Ratio 22.5 H, Glucose 189 H, Calcium 14.3 H* Current Medications Acetaminophen (Acetaminophen 500 Mg Tablet) 1,000 mg PO Q6H PRN PRN PRN Reason: Pain Score 1-10 Last Admin: 04/27/20 08:55 Dose: 1,000 mg Documented by: Atorvastatin Calcium (Atorvastatin Calcium 10 Mg Tablet) 10 mg PO QHS [facility] Last Admin: 04/28/20 21:31 Dose: 10 mg Documented by: Calamine/Phenol (Menthol/Lanolin/Calamine/Znox 113 Gm Tube) 1 applic TOPICAL 0600,2200 [facility]; Protocol Last Admin: 04/29/20 05:35 Dose: Not Given Documented by: Fludrocortisone Acetate (Fludrocortisone Acetate 0.1 Mg Tablet) 0.1 mg PO DAILY [facility] Last Admin: 04/29/20 09:31 Dose: 0.1 mg Documented by: Fluticasone Propionate (Fluticasone 0.05% 1 [place] Nasal.Sry) 1 spray NASAL QHS [facility] Last Admin: 04/28/20 21:32 Dose: 1 spray Documented by: Hydrocortisone (Hydrocortisone 10 Mg Tablet) 10 mg PO DAILY@1800 [facility] Last Admin: 04/28/20 17:14 Dose: 10 mg Documented by: Hydrocortisone (Hydrocortisone 10 Mg Tablet) 20 mg PO DAILY@0600 [facility] Last Admin: 04/29/20 05:34 Dose: 20 mg Documented by: Sodium Chloride () 1,000 mls @ 100 mls/hr IV .Q10H [facility] Last Admin: 04/29/20 03:36 Dose: 100 mls/hr Documented by: Ceftriaxone Sodium (Rocephin) 1 gm in 50 mls @ 100 mls/hr IV Q24 [facility] Last Infusion: 04/29/20 12:11 Dose: Infused Documented by: Lactobacillus Acidophilus (Lactobacillus Acidophilus) 1 tablet PO DAILY [facility] Last Admin: 04/29/20 09:31 Dose: 1 tablet Documented by: Lactulose (Lactulose 20 Gm/30 Ml Udc) 10 gm PO DAILY [facility] Last Admin: 04/29/20 09:32 Dose: 10 gm Documented by: Methylprednisolone (Methylprednisolone 125 Mg/2 Ml Vial) 80 mg IV Q8 [facility] Last Admin: 04/29/20 05:34 Dose: 80 mg Documented by: Nutritional Formula (Lactose Free) (Ensure Enlive 120 Ml Liquid) 120 ml PO 4X/DAY [facility] Last Admin: 04/29/20 09:32 Dose: 120 ml Documented by: Ondansetron HCl (Ondansetron 4 Mg/2 Ml Vial) 4 mg IV Q8H PRN PRN PRN Reason: NAUSEA/VOMITING Potassium Chloride (Potassium Chloride Oral Tablet 20 Meq) 20 meq PO BIDCM [facility] Last Admin: 04/29/20 09:31 Dose: 20 meq Documented by: Sodium Chloride (0.9% Saline Lock 10 Ml Syringe) 10 - 40 ml IV UD PRN PRN Reason: SALINE FLUSH Last Admin: 04/26/20 10:57 Dose: 10 ml Documented by: Warfarin Sodium (Warfarin 2.5 Mg Tablet) 2.5 mg PO DAILY@1700 [facility] Last Admin: 04/28/20 17:14 Dose: 2.5 mg Documented by: Home Medications: Medications to take at Discharge L.acidoph,Paracasei, B.lactis [Probiotic] 1 ea PO DAILY 03/24/16 nitroglycerin 0.4 mg sublingual tablet 0.4 mg SUBLINGUAL Q5-15M PRN 05/21/18 Cholecalciferol (Vitamin D3) [Vitamin D3] 1,000 unit PO DAILY 03/20/20 Cyanocobalamin (Vitamin B-12) [B-12] 1,000 mcg PO DAILY 03/20/20 Dupilumab [Dupixent Pen] 300 mg SQ [id number] #0 04/04/20 Acetaminophen [Tylenol] 1,000 mg PO Q6H PRN tab 04/08/20 Fluticasone 0.05% [Flonase Nasal [place]] 1 spray NASAL QHS #1 nasal.sry 04/08/20 Hydrocortisone [Cortef] 10 mg PO DAILY@1800 #30 tab 04/08/20 Hydrocortisone [Cortef] 20 mg PO DAILY@0600 #60 tab 04/08/20 Menthol/Lanolin/Calamine/Znox [Calmoseptine Ointment] 1 applic TOPICAL 0600,2200 tube 04/08/20 Warfarin [Coumadin] 2.5 mg PO DAILY@1700 #30 tab 04/08/20 Atorvastatin Calcium [Lipitor] 10 mg PO QHS 04/09/20 Florinef 0.1 mg PO DAILY 04/23/20 Primary Care Physician: Amos Fulton MD [Primary Care Provider] - Medical Necessity - Tobacco Use Smoking Status: Never smoker Tobacco Use: Non-smoker Meaningful Use Info Meaningful Use Diagnoses (Choose all that apply): None applicable
[2020-04-29 15:42] LABS: International Normalized Ratio 1.9; Prothrombin Time (Protime)PT. 21.4 SECONDS (11.7-14.9)
[2020-04-29] MEDS: Hydrocortisone 10 MG Tablet PO (17:56)
[2020-04-29] MEDS: Fluticasone 0.05% 1 SPRAY NASAL.SRY NASAL (21:11)
[2020-04-29] MEDS: 0.9% Saline Lock 10 ML Syringe IV (21:11)
[2020-04-29] MEDS: Atorvastatin Calcium 10 MG Tablet PO (21:12)
[2020-04-29] MEDS: Menthol/Lanolin/Calamine/Znox 113 GM Tube 1 APPLIC TOPICAL (21:12)
[2020-04-29] MEDS: Acetaminophen 500 MG Tablet 1000 MG PO (21:26)
[2020-04-30] VITALS (11 sets, daily range): BP systolic 157–164; BP diastolic 94–100; PULSE 73–96; RESP 16; TEMP 36.6–36.9; O2SAT 95–99
[2020-04-30] MEDS: MethylPREDNISolone 125 MG/2 ML Vial 80 MG IV (05:06)
[2020-04-30] MEDS: Hydrocortisone 10 MG Tablet 20 MG PO (05:07)
[2020-04-30] MEDS: Menthol/Lanolin/Calamine/Znox 113 GM Tube 1 APPLIC TOPICAL ×2 (05:07→21:32)
[2020-04-30 06:30] LABS: International Normalized Ratio 2.1; Prothrombin Time (Protime)PT. 22.7 SECONDS (11.7-14.9)
[2020-04-30 06:50] LABS: Anion Gap 11 (5-15); BUN 69 mg/dL (7-18); BUN/Creat Ratio 29.2 RATIO (10-20); Calcium,Total 13.8 mg/dL (8.5-10.1); Chloride 104 mmol/L (98-107); Creatinine, Serum 2.36 mg/dL (0.55-1.02); EST Glomerular Filtration Rate 21 mL/min (>60); Est Glom Filt Rate - Afr Amer 26 mL/min (>60); Estimated Creatinine Clearance 15.79 ml/min; Glucose 203 mg/dL (74-106); Potassium 3.8 mmol/L (3.5-5.1); Sodium Level 140 mmol/L (136-145)
--- NOTE | 2020-04-30 08:10 | PCM.PROGNOTE ---
Subjective: Patient was seen and examined today, she is alert and in no distress. Patient does not complain of any fevers, chills, or chest discomfort. Patient's creatinine is unchanged from yesterday at 2.36. Her INR is therapeutic at 2.1, and her serum calcium level is 13.8. We are currently awaiting transfer to for further care. - Physical Exam Vitals/I&O's: Vital Signs Temp Pulse Resp BP Pulse Ox 98.3 F 73 16 161/94 H 95 04/30/20 02:50 04/30/20 06:59 04/30/20 02:50 04/30/20 02:50 04/30/20 02:50 Oxygen Delivery Method Room Air Weight: 68.4 kg Body Mass Index (BMI) 27.6 Intake and Output for Last 24 Hours 04/28/20 04/29/20 04/30/20 23:59 23:59 23:59 Intake Total 2936.67 / 3056.67 3931.67 / 3931.67 240 / 240 Output Total 4550 / 5400 2850 / 2850 400 / 400 Balance -1613.33 / -2343.33 1081.67 / 1081.67 -160 / -160 General: Alert, Oriented x3, Cooperative, No apparent distress, Well developed, Well nourished HEENT: Atraumatic, PERRLA, EOMI, Normocephalic Oral: Moist Mucosa Neck: Supple, Trachea Midline, Thyroid Normal Size and Texture Lungs: Clear to auscultation, Normal air movement, No rhonchi, No wheeze, No rales Cardiovascular: Regular rate, Regular Rhythm, Normal S1, Normal S2, No murmurs, PMI Normal, No rub noted, No Gallop Abdomen: Bowel Sounds Present, Soft, Non Tender, Non-Distended Extremities: No clubbing, No cyanosis, Capillary Refill Less than 3 Seconds, Edema - +1 to 2 mm pitting edema is noted in the pedal areas and lower legs bilaterally Skin: No rashes, No breakdown Musculoskeletal: No Tenderness to Palpation of Joints or Extremities Neurological: Cranial nerves II-XII grossly intact, Neuro grossly intact, Sensory exam intact to light touch and pain Psych/Mental Status: Normal Affect, Appropriate, Alert and oriented to time, place, person, mood and affect Microbiology Past 72 Hours 04/25/20 15:10 Urine, Clean Catch Urine Culture - Final Citrobacter freundii Laboratory Results 04/29/20 08:15: Sodium 140, Potassium 3.7, Chloride 106, Carbon Dioxide 24.0, Anion Gap 10, BUN 53 H, Creatinine 2.36 H, Estim Creat Clear Calc 15.79, Est GFR (MDRD) Af Amer 26 L, Est GFR (MDRD) Non-Af 21 L, BUN/Creatinine Ratio 22.5 H, Glucose 189 H, Calcium 14.3 H* 04/29/20 15:00: PT 21.4 H, INR 1.9 04/30/20 06:10: Sodium 140, Potassium 3.8, Chloride 104, Carbon Dioxide 25.0, Anion Gap 11, BUN 69 H, Creatinine 2.36 H, Estim Creat Clear Calc 15.79, Est GFR (MDRD) Af Amer 26 L, Est GFR (MDRD) Non-Af 21 L, BUN/Creatinine Ratio 29.2 H, Glucose 203 H, Calcium 13.8 H* 04/30/20 06:10: PT 22.7 H, INR 2.1 Current Medications Acetaminophen (Acetaminophen 500 Mg Tablet) 1,000 mg PO Q6H PRN PRN PRN Reason: Pain Score 1-10 Last Admin: 04/29/20 21:26 Dose: 1,000 mg Documented by: Atorvastatin Calcium (Atorvastatin Calcium 10 Mg Tablet) 10 mg PO QHS [facility] Last Admin: 04/29/20 21:12 Dose: 10 mg Documented by: Calamine/Phenol (Menthol/Lanolin/Calamine/Znox 113 Gm Tube) 1 applic TOPICAL 0600,2200 [facility]; Protocol Last Admin: 04/30/20 05:07 Dose: 1 applicatio Documented by: Fludrocortisone Acetate (Fludrocortisone Acetate 0.1 Mg Tablet) 0.1 mg PO DAILY [facility] Last Admin: 04/29/20 09:31 Dose: 0.1 mg Documented by: Fluticasone Propionate (Fluticasone 0.05% 1 [place] Nasal.Sry) 1 spray NASAL QHS [facility] Last Admin: 04/29/20 21:11 Dose: 1 spray Documented by: Hydrocortisone (Hydrocortisone 10 Mg Tablet) 10 mg PO DAILY@1800 [facility] Last Admin: 04/29/20 17:56 Dose: 10 mg Documented by: Hydrocortisone (Hydrocortisone 10 Mg Tablet) 20 mg PO DAILY@0600 [facility] Last Admin: 04/30/20 05:07 Dose: 20 mg Documented by: Sodium Chloride () 1,000 mls @ 100 mls/hr IV .Q10H [facility] Last Admin: 04/29/20 23:29 Dose: 100 mls/hr Documented by: Ceftriaxone Sodium (Rocephin) 1 gm in 50 mls @ 100 mls/hr IV Q24 [facility] Last Infusion: 04/29/20 12:11 Dose: Infused Documented by: Lactobacillus Acidophilus (Lactobacillus Acidophilus) 1 tablet PO DAILY [facility] Last Admin: 04/29/20 09:31 Dose: 1 tablet Documented by: Lactulose (Lactulose 20 Gm/30 Ml Udc) 10 gm PO DAILY [facility] Last Admin: 04/29/20 09:32 Dose: 10 gm Documented by: Methylprednisolone (Methylprednisolone 125 Mg/2 Ml Vial) 80 mg IV Q8 [facility] Last Admin: 04/30/20 05:06 Dose: 80 mg Documented by: Nutritional Formula (Lactose Free) (Ensure Enlive 120 Ml Liquid) 120 ml PO 4X/DAY [facility] Last Admin: 04/29/20 21:11 Dose: Not Given Documented by: Ondansetron HCl (Ondansetron 4 Mg/2 Ml Vial) 4 mg IV Q8H PRN PRN PRN Reason: NAUSEA/VOMITING Potassium Chloride (Potassium Chloride Oral Tablet 20 Meq) 20 meq PO BIDCM [facility] Last Admin: 04/29/20 17:55 Dose: 20 meq Documented by: Sodium Chloride (0.9% Saline Lock 10 Ml Syringe) 10 - 40 ml IV UD PRN PRN Reason: SALINE FLUSH Last Admin: 04/29/20 21:11 Dose: 10 ml Documented by: Warfarin Sodium (Warfarin 2.5 Mg Tablet) 2.5 mg PO DAILY@1700 [facility] Last Admin: 04/29/20 17:56 Dose: 2.5 mg Documented by: Medical Necessity - Tobacco Use Smoking Status: Never smoker Tobacco Use: Non-smoker Assessment/Plan All Active Problems (Last Reviewed 04/23/20 @ 02:[address] 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
[2020-04-30] MEDS: Ceftriaxone 1 GM/50 ML BAG IV (09:04)
[2020-04-30] MEDS: Potassium Chloride Oral Tablet 20 MEQ PO ×2 (09:04→17:02)
[2020-04-30] MEDS: Fludrocortisone Acetate 0.1 MG Tablet PO (09:04)
[2020-04-30] MEDS: 0.9% Normal Saline 1,000 ML 100 ML IV ×2 (09:05→19:05)
[2020-04-30 16:46] LABS: Vitamin D 1,25-Dihydroxy 250.2 pg/mL (19.9-79.3)
[2020-04-30] MEDS: Fluticasone 0.05% 1 SPRAY NASAL.SRY NASAL (21:31)
[2020-04-30] MEDS: Atorvastatin Calcium 10 MG Tablet PO (21:32)
[2020-05-01] VITALS (8 sets, daily range): BP systolic 152–165; BP diastolic 95–103; PULSE 80–91; RESP 16–18; TEMP 36.6–36.8; O2SAT 94–97
[2020-05-01] MEDS: Acetaminophen 500 MG Tablet 1000 MG PO (01:12)
[2020-05-01] MEDS: 0.9% Normal Saline 1,000 ML 100 ML IV (05:06)
[2020-05-01] MEDS: Menthol/Lanolin/Calamine/Znox 113 GM Tube 1 APPLIC TOPICAL (05:13)
[2020-05-01 06:41] LABS: Anion Gap 9 (5-15); BUN 79 mg/dL (7-18); BUN/Creat Ratio 32.9 RATIO (10-20); Calcium,Total 12.7 mg/dL (8.5-10.1); Chloride 105 mmol/L (98-107); EST Glomerular Filtration Rate 21 mL/min (>60); Est Glom Filt Rate - Afr Amer 25 mL/min (>60); Estimated Creatinine Clearance 15.53 ml/min; Glucose 174 mg/dL (74-106); Potassium 4.2 mmol/L (3.5-5.1); Sodium Level 137 mmol/L (136-145)
[2020-05-01] MEDS: Fludrocortisone Acetate 0.1 MG Tablet PO (08:48)
[2020-05-01] MEDS: Potassium Chloride Oral Tablet 20 MEQ PO (08:48)
--- NOTE | 2020-05-01 09:42 | CASEMGMT ---
TC darlene Ca, ref #[id number], per rep [facility] is in network. Out of network benefits= 50% coinsurance, max in and out of network OOP is $10,000. Notified Dr[address] Coffey per [facility].
[2020-05-01] MEDS: amLODIPine 5 MG Tablet PO (09:43)
--- NOTE | 2020-05-01 14:59 | PCM.PN.BLA ---
Progress Note tolerating high dose iv steroids. Calcium 12.7 today but creatinine up to 2.4 with baseline creatinine 1.4. BP elevated. Complains of dry mouth. Etiology for hypercalcemia with hypervitaminosis unclear. Await transfer to tertiary care center for further workup. Questionable sarcoid. Vit 1,25 OH remains elevated at 250 on 04/27. PE VS AOx3 HRRR Diffuse edema persistent A/P 1. Acute on CKD stage 3 in single kidney. Increase iv fluids. Baseline creatinine 1.4 2. Hypervitaminosis Vit D 1,25 OH 250 on 04/27 3. Hypercalcemia transfer to 4. Addisons disease 5. HTN on florinef, iv steroids 6. Hypokalemia replaced 7. P afib on anticoagulation STROKE Vital Signs/Narrative: Vital Signs Temp Pulse Resp BP Pulse Ox 05/01/20 13:22 98.2 F 88 16 158/95 H 97 05/01/20 11:59 88
--- NOTE | 2020-05-02 16:22 | DS.PCM_ITS ---
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 Patient was admitted for hypokalemia and hypercalcemia, he she was seen in consultation by nephrology, the exact etiology of her hypercalcemia was unknown, she was given Pamidronate, labs were monitored, her calcium remained elevated however and it was decided to transfer her to an acute care hospital for further work-up by endocrinology. This transfer was delayed with an availability of beds at . Patient was put on high-dose corticosteroids due to the possibility she might have undiagnosed sarcoidosis. However, this appeared to have little effect on her calcium level. On 05/01/2020, patient was seen and examined: On examination she appeared her stated age, she does not appear to be in any distress. Vital signs as documented. Skin warm and dry and without overt rashes. Neck without JVD, thyroid appears normal, trachea is midline, neck is supple. Lungs clear, normal air movement was noted. Heart exam notable for regular rhythm, normal sounds and absence of murmurs, rubs or gallops. Abdomen unremarkable and without evidence of organomegaly, masses, or abdominal aortic enlargement, bowel sounds are present in all 4 quadrants, no abdominal tenderness was noted. Extremities nonedematous, no cyanosis was noted, no clubbing was noted. Neuro: Cranial nerves II through XII are grossly intact, no focal motor deficits were noted, sensation to light touch and pinprick is intact, motor exam 5/5 throughout. Psych: Patient is alert, she exhibits some mild confusion On 05/01/2020, patient was seen and examined and transferred to the [facility] in stable condition. - Physical Exam Vitals/I&O's: Vital Signs Temp Pulse Resp BP Pulse Ox 98.2 F 87 16 158/95 H 97 05/01/20 13:22 05/01/20 15:29 05/01/20 13:22 05/01/20 13:22 05/01/20 13:22 Oxygen Delivery Method Room Air Weight: 68.4 kg Body Mass Index (BMI) 27.6 Intake and Output for Last 24 Hours 04/30/20 05/01/20 05/02/20 23:59 23:59 23:59 Intake Total 3138.33 / 3138.33 2020.00 / 2020.00 Output Total 1275 / 1625 1100 / 1100 Balance 1863.33 / 1513.33 920.00 / 920.00 Home Medications: Medications to take at Discharge L.acidoph,Paracasei, B.lactis [Probiotic] 1 ea PO DAILY 03/24/16 nitroglycerin 0.4 mg sublingual tablet 0.4 mg SUBLINGUAL Q5-15M PRN 05/21/18 Cholecalciferol (Vitamin D3) [Vitamin D3] 1,000 unit PO DAILY 03/20/20 Cyanocobalamin (Vitamin B-12) [B-12] 1,000 mcg PO DAILY 03/20/20 Dupilumab [Dupixent Pen] 300 mg SQ [id number] #0 04/04/20 Acetaminophen [Tylenol] 1,000 mg PO Q6H PRN tab 04/08/20 Fluticasone 0.05% [Flonase Nasal [place]] 1 spray NASAL QHS #1 nasal.sry 04/08/20 Hydrocortisone [Cortef] 10 mg PO DAILY@1800 #30 tab 04/08/20 Hydrocortisone [Cortef] 20 mg PO DAILY@0600 #60 tab 04/08/20 Menthol/Lanolin/Calamine/Znox [Calmoseptine Ointment] 1 applic TOPICAL 0600,2200 tube 04/08/20 Warfarin [Coumadin] 2.5 mg PO DAILY@1700 #30 tab 04/08/20 Atorvastatin Calcium [Lipitor] 10 mg PO QHS 04/09/20 Florinef 0.1 mg PO DAILY 04/23/20 Primary Care Physician: Amos Fulton MD [Primary Care Provider] - Disposition: Acute care Hospital Minutes spent on discharge:: 32 Patient Condition:: Stable Medical Necessity - Tobacco Use Smoking Status: Never smoker Tobacco Use: Non-smoker Meaningful Use Info Meaningful Use Diagnoses (Choose all that apply): None applicable Inpatient E&M: 04277 Disch Hosp
== END 2020-05-01 17:20 | disposition short-term general hospital (02) | DRG 641 ==
LOC: ED 21:20 → PCU 23:08
PROVIDERS: Family Medicine; Internal Medicine Nephrology; Admitting Provider Hospitalist; Emergency Provider Emergency Medicine; PCP Internal Medicine; Visit Provider Internal Medicine
DX: E83.52 Hypercalcemia (principal); E27.1 Primary adrenocortical insufficiency; N17.9 Acute kidney failure, unspecified; N30.00 Acute cystitis without hematuria; N18.4 Chronic kidney disease, stage 4 (severe); E87.6 Hypokalemia; R53.81 Other malaise; E78.5 Hyperlipidemia, unspecified; R29.6 Repeated falls; E86.0 Dehydration; Z90.5 Acquired absence of kidney; T50.2X5A Adverse effect of carbonic-anhydrase inhibitors, benzothiadiazides and other diuretics, initial encounter; I12.9 Hypertensive chronic kidney disease with stage 1 through stage 4 chronic kidney disease, or unspecified chronic kidney disease; Z85.528 Personal history of other malignant neoplasm of kidney; K59.00 Constipation, unspecified; E67.3 Hypervitaminosis D; T45.2X5A Adverse effect of vitamins, initial encounter; Z79.01 Long term (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; Z86.711 Personal history of pulmonary embolism; Z86.718 Personal history of other venous thrombosis and embolism; I48.91 Unspecified atrial fibrillation
CPT/HCPCS: 36415; 70450; 71045; 71250; 74176; 76770; 80048; 80053; 80069; 81001; 82570; 82607; 82652; 84300; 84484; 85025; 85610; 87077; 87086; 87088; 87186; 87426; 93005; 93970; 97110; 97162; 97166; 97530; 97535; 97802; 97803; 99285; J2430; J7030; J7040; J7050; P9047; A4216; J1940

== ENCOUNTER → 2020-05-21 13:03 | Outpatient (CLI) | payer MEDICARE, SELFPAY ==
[2020-04-23 00:15] VITALS: BMI 27.6
[2020-05-21 13:14] VITALS: BP 124/82; PULSE 107; RESP 16; TEMP 36.6; O2SAT 99; BMI 27.6
[2020-05-21] MEDS: DENOSUMAB 60 MG/ML SC (13:17)
== END ==
PROVIDERS: PCP Internal Medicine; Referring Provider Internal Medicine Endocrinology, Diabetes & Metabolism; Visit Provider Internal Medicine Endocrinology, Diabetes & Metabolism
DX: M81.0 Age-related osteoporosis without current pathological fracture (principal)
CPT/HCPCS: 96372; J0897

== ENCOUNTER → 2020-05-26 10:13 | Outpatient (CLI) | payer MEDICARE, SELFPAY ==
[2020-05-21 13:14] VITALS: BMI 27.6
[2020-05-26 12:40] LABS: Albumin, Serum 3.7 g/dL (3.2-5.0); BUN 30 mg/dL (7-18); BUN/Creat Ratio 19.6 RATIO (10-20); Calcium,Total 8.5 mg/dL (8.5-10.1); Chloride 112 mmol/L (98-107); Creatinine, Serum 1.53 mg/dL (0.55-1.02); EST Glomerular Filtration Rate 35 mL/min (>60); Est Glom Filt Rate - Afr Amer 42 mL/min (>60); Glucose 98 mg/dL (74-106); Phosphorus 2.1 mg/dL (2.5-4.9); Potassium 5.4 mmol/L (3.5-5.1); Sodium Level 139 mmol/L (136-145)
[2020-05-28 15:54] LABS: Vitamin D 1,25-Dihydroxy 66.4 pg/mL (19.9-79.3)
== END ==
PROVIDERS: PCP Internal Medicine; Visit Provider Internal Medicine Nephrology
DX: N17.9 Acute kidney failure, unspecified (principal); E67.3 Hypervitaminosis D
CPT/HCPCS: 36415; 80069; 82652

== ENCOUNTER 2020-06-16 15:32 | Outpatient (RCR) | payer MEDICARE, SELFPAY ==
[2020-03-20 21:27] VITALS: BMI 25.0
[2020-05-21 13:14] VITALS: BMI 27.6
[2020-06-08 11:01] LABS: International Normalized Ratio 1.8; Prothrombin Time (Protime)PT. 20.2 SECONDS (11.7-14.9)
[2020-06-16 15:46] LABS: INR Fingerstick 1.8; Prothrombin Time Fingerstick 20.7 SEC (11.9-14.4)
== END 2020-06-16 18:00 | disposition home or self-care (01) ==
LOC: LAB 15:32
PROVIDERS: Internal Medicine Endocrinology, Diabetes & Metabolism; Family Provider Internal Medicine; PCP Internal Medicine; Referring Provider Internal Medicine Cardiovascular Disease; Visit Provider Internal Medicine Cardiovascular Disease
DX: Z86.711 Personal history of pulmonary embolism (principal); Z86.718 Personal history of other venous thrombosis and embolism; Z79.01 Long term (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; E83.52 Hypercalcemia
CPT/HCPCS: 36415; 36416; 82306; 82652; 85610

== ENCOUNTER 2020-07-13 12:07 | Outpatient (RCR) | payer MEDICARE, SELFPAY ==
[2020-05-21 13:14] VITALS: BMI 27.6
[2020-06-29 14:16] LABS: INR Fingerstick 2.3; Prothrombin Time Fingerstick 26.1 SEC (11.9-14.4)
[2020-07-14 09:46] LABS: Prothrombin Time Fingerstick 23.2 SEC (11.9-14.4)
== END 2020-07-13 18:00 | disposition home or self-care (01) ==
LOC: LAB 12:07
PROVIDERS: Family Provider Internal Medicine; PCP Internal Medicine; Referring Provider Internal Medicine Cardiovascular Disease; Visit Provider Internal Medicine Cardiovascular Disease
DX: Z86.711 Personal history of pulmonary embolism (principal); Z79.01 Long term (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
CPT/HCPCS: 36416; 85610

== ENCOUNTER → 2020-07-22 15:16 | Outpatient (CLI) | payer MEDICARE, SELFPAY ==
[2020-07-22 14:35] VITALS: BMI 23.0
[2020-07-22 17:59] LABS: AST(SGOT) 26 U/L (15-37); Alanine Aminotransfer ALT/SGPT 33 U/L (13-56); Albumin, Serum 3.5 g/dL (3.2-5.0); Alkaline Phosphatase 93 U/L (45-117); Anion Gap 8 (5-15); BUN 55 mg/dL (7-18); BUN/Creat Ratio 19.9 RATIO (10-20); Calcium,Total 10.6 mg/dL (8.5-10.1); Chloride 107 mmol/L (98-107); Creatinine, Serum 2.77 mg/dL (0.55-1.02); EST Glomerular Filtration Rate 18 mL/min (>60); Est Glom Filt Rate - Afr Amer 21 mL/min (>60); Globulin 3.4 g/dL (2.2-4.2); Glucose 99 mg/dL (74-106); Potassium 4.1 mmol/L (3.5-5.1); Protein, Total 6.9 g/dL (6.4-8.2); Sodium Level 139 mmol/L (136-145)
== END ==
PROVIDERS: PCP Internal Medicine; Visit Provider Internal Medicine Endocrinology, Diabetes & Metabolism
DX: E83.52 Hypercalcemia (principal)
CPT/HCPCS: 36415; 80053

== ENCOUNTER 2020-08-13 13:05 | Outpatient (RCR) | payer MEDICARE, SELFPAY ==
[2020-07-17 13:05] VITALS: BMI 23.0
[2020-07-22 14:35] VITALS: BMI 23.0
[2020-08-13 13:55] LABS: International Normalized Ratio 1.4
[2020-08-13 14:07] LABS: Albumin, Serum 3.8 g/dL (3.2-5.0); BUN 36 mg/dL (7-18); BUN/Creat Ratio 17.1 RATIO (10-20); Calcium,Total 8.7 mg/dL (8.5-10.1); Chloride 111 mmol/L (98-107); EST Glomerular Filtration Rate 24 mL/min (>60); Est Glom Filt Rate - Afr Amer 29 mL/min (>60); Glucose 95 mg/dL (74-106); Phosphorus 2.5 mg/dL (2.5-4.9); Potassium 4.4 mmol/L (3.5-5.1); Sodium Level 140 mmol/L (136-145)
[2020-08-15 13:37] LABS: Vitamin D 1,25-Dihydroxy 42.7 pg/mL (19.9-79.3)
== END 2020-08-13 18:00 | disposition home or self-care (01) ==
LOC: LAB 13:05
PROVIDERS: Internal Medicine Endocrinology, Diabetes & Metabolism; Family Provider Internal Medicine; PCP Internal Medicine; Referring Provider Internal Medicine Cardiovascular Disease; Visit Provider Internal Medicine Cardiovascular Disease
DX: N17.9 Acute kidney failure, unspecified (principal); E67.3 Hypervitaminosis D; Z86.711 Personal history of pulmonary embolism; Z79.01 Long term (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
CPT/HCPCS: 36415; 80069; 82652; 85610

== ENCOUNTER → 2020-09-01 12:03 | Outpatient (CLI) | payer MEDICARE, SELFPAY ==
[2020-07-22 14:35] VITALS: BMI 23.0
[2020-09-01 13:09] LABS: Anion Gap 5 (5-15); BUN 31 mg/dL (7-18); BUN/Creat Ratio 19.6 RATIO (10-20); Calcium,Total 9.3 mg/dL (8.5-10.1); Chloride 111 mmol/L (98-107); Creatinine, Serum 1.58 mg/dL (0.55-1.02); EST Glomerular Filtration Rate 34 mL/min (>60); Est Glom Filt Rate - Afr Amer 41 mL/min (>60); Glucose 88 mg/dL (74-106); Potassium 4.3 mmol/L (3.5-5.1); Sodium Level 140 mmol/L (136-145)
== END ==
PROVIDERS: PCP Internal Medicine; Visit Provider Internal Medicine Nephrology
DX: I10 Essential (primary) hypertension (principal)
CPT/HCPCS: 36415; 80048

== ENCOUNTER 2020-09-11 12:56 | Outpatient (RCR) | payer MEDICARE, SELFPAY ==
[2020-07-22 14:35] VITALS: BMI 23.0
[2020-08-20 08:41] LABS: INR Fingerstick 1.6
[2020-08-27 16:30] LABS: INR Fingerstick 1.3; Prothrombin Time Fingerstick 15.5 SEC (11.9-14.4)
[2020-09-04 13:46] LABS: INR Fingerstick 1.7; Prothrombin Time Fingerstick 19.2 SEC (11.9-14.4)
[2020-09-11 13:05] LABS: INR Fingerstick 1.9; Prothrombin Time Fingerstick 21.6 SEC (11.9-14.4)
== END 2020-09-11 18:00 | disposition home or self-care (01) ==
LOC: LAB 12:56
PROVIDERS: Family Provider Internal Medicine; PCP Internal Medicine; Referring Provider Internal Medicine Cardiovascular Disease; Visit Provider Internal Medicine Cardiovascular Disease
DX: Z86.711 Personal history of pulmonary embolism (principal); Z86.718 Personal history of other venous thrombosis and embolism; Z79.01 Long term (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
CPT/HCPCS: 36416; 85610

== ENCOUNTER 2020-10-16 13:05 | Outpatient (RCR) | payer MEDICARE, SELFPAY ==
[2020-07-22 14:35] VITALS: BMI 23.0
[2020-09-25 10:55] LABS: INR Fingerstick 3.1; Prothrombin Time Fingerstick 33.7 SEC (11.9-14.4)
[2020-10-02 14:26] LABS: Prothrombin Time Fingerstick 32.8 SEC (11.9-14.4)
[2020-10-16 13:16] LABS: INR Fingerstick 3.2; Prothrombin Time Fingerstick 35.6 SEC (11.9-14.4)
== END 2020-10-16 18:00 | disposition home or self-care (01) ==
LOC: LAB 13:05
PROVIDERS: Family Provider Internal Medicine; PCP Internal Medicine; Referring Provider Internal Medicine Cardiovascular Disease; Visit Provider Internal Medicine Cardiovascular Disease
DX: Z86.711 Personal history of pulmonary embolism (principal); Z79.01 Long term (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
CPT/HCPCS: 36416; 85610

== ENCOUNTER 2020-10-30 11:12 | Outpatient (RCR) | payer MEDICARE, SELFPAY ==
[2020-10-20 20:04] VITALS: BMI 23.0
[2020-10-30 14:06] LABS: Prothrombin Time Fingerstick 33.6 SEC (11.9-14.4)
== END 2020-10-30 18:00 | disposition home or self-care (01) ==
LOC: LAB 11:12
PROVIDERS: Family Provider Internal Medicine; PCP Internal Medicine; Referring Provider Internal Medicine Cardiovascular Disease; Visit Provider Internal Medicine Cardiovascular Disease
DX: Z86.711 Personal history of pulmonary embolism (principal); Z79.01 Long term (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
CPT/HCPCS: 36416; 85610

== ENCOUNTER → 2020-11-26 12:32 | Outpatient (CLI) | payer MEDICARE, SELFPAY ==
[2020-04-23 00:15] VITALS: BMI 27.6
[2020-11-26 13:02] VITALS: BP 119/78; PULSE 74; RESP 16; TEMP 37; O2SAT 96; BMI 24.7
[2020-11-26] MEDS: DENOSUMAB 60 MG/ML SC (13:09)
== END ==
PROVIDERS: PCP Internal Medicine; Referring Provider Internal Medicine Endocrinology, Diabetes & Metabolism; Visit Provider Internal Medicine Endocrinology, Diabetes & Metabolism
DX: M81.0 Age-related osteoporosis without current pathological fracture (principal)
CPT/HCPCS: 96372; J0897

== ENCOUNTER 2020-12-11 12:33 | Outpatient (RCR) | payer MEDICARE, SELFPAY ==
[2020-11-19 20:22] VITALS: BMI 23.0
[2020-11-20 10:21] LABS: INR Fingerstick 3.8; Prothrombin Time Fingerstick 41.5 SEC (11.9-14.4)
[2020-11-20 10:50] LABS: International Normalized Ratio 3.6; Prothrombin Time (Protime)PT. 35.1 SECONDS (11.7-14.9)
[2020-11-27 12:20] LABS: INR Fingerstick 2.6; Prothrombin Time Fingerstick 28.8 SEC (11.9-14.4)
[2020-12-11 13:14] LABS: Hematocrit 43.2 % (37-47); Hemoglobin 13.9 g/dL (12.0-15.0); Mean Corp Hgb Conc 32.2 g/dL (32-36); Mean Corpuscular Hgb 30.1 pg (27.0-32.0); Mean Corpuscular Volume 93.5 fL (81-99); Mean Platelet Vol. 11.4 fl (6.2-12.0); Platelet Count 208 K/mm3 (150-450); RBC Distribution Width CV 14.5 % (11.6-14.6); RBC Distribution Width SD 49.7 fl (35.1-43.9); Red Blood Count 4.62 M/mm3 (4.2-5.4); White Blood Count 11.3 K/mm3 (4.4-11.0)
[2020-12-11 13:30] LABS: International Normalized Ratio 2.2; Prothrombin Time (Protime)PT. 23.4 SECONDS (11.7-14.9)
[2020-12-11 13:39] LABS: PTHIN 101.8 pg/mL (18.4-80.1)
[2020-12-11 13:41] LABS: Albumin, Serum 3.6 g/dL (3.2-5.0); BUN 31 mg/dL (7-18); BUN/Creat Ratio 17.8 RATIO (10-20); Calcium,Total 9.1 mg/dL (8.5-10.1); Chloride 109 mmol/L (98-107); Creatinine, Serum 1.74 mg/dL (0.55-1.02); EST Glomerular Filtration Rate 30 mL/min (>60); Est Glom Filt Rate - Afr Amer 36 mL/min (>60); Glucose 130 mg/dL (74-106); Phosphorus 2.1 mg/dL (2.5-4.9); Potassium 4.8 mmol/L (3.5-5.1); Sodium Level 141 mmol/L (136-145)
== END 2020-12-20 03:36 | disposition home or self-care (01) ==
LOC: LAB 12:33
PROVIDERS: Internal Medicine Nephrology; Family Provider Internal Medicine; PCP Internal Medicine; Referring Provider Internal Medicine Cardiovascular Disease; Visit Provider Internal Medicine Cardiovascular Disease
DX: Z86.711 Personal history of pulmonary embolism (principal); Z79.01 Long term (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
CPT/HCPCS: 36415; 36416; 80069; 83970; 85027; 85610

== ENCOUNTER 2021-01-04 12:39 | Outpatient (RCR) | payer MEDICARE, SELFPAY ==
[2020-07-22 14:35] VITALS: BMI 23.0
[2021-01-04 13:49] LABS: International Normalized Ratio 2.8; Prothrombin Time (Protime)PT. 29.1 SECONDS (11.7-14.9)
[2021-01-04 14:26] LABS: Vitamin D,25 Hydroxy 25.7 ng/mL
[2021-01-04 14:28] LABS: ALB/GLOB Ratio 0.9 RATIO (0.9-2.4); AST(SGOT) 22 U/L (15-37); Alanine Aminotransfer ALT/SGPT 25 U/L (13-56); Albumin, Serum 3.1 g/dL (3.2-5.0); Alkaline Phosphatase 84 U/L (45-117); Anion Gap 6 (5-15); BUN 27 mg/dL (7-18); BUN/Creat Ratio 17.8 RATIO (10-20); Calcium,Total 8.8 mg/dL (8.5-10.1); Chloride 109 mmol/L (98-107); Creatinine, Serum 1.52 mg/dL (0.55-1.02); EST Glomerular Filtration Rate 35 mL/min (>60); Est Glom Filt Rate - Afr Amer 43 mL/min (>60); Globulin 3.4 g/dL (2.2-4.2); Glucose 90 mg/dL (74-106); Phosphorus 2.4 mg/dL (2.5-4.9); Potassium 4.5 mmol/L (3.5-5.1); Protein, Total 6.5 g/dL (6.4-8.2); Sodium Level 138 mmol/L (136-145); T4 Free Direct 1.09 ng/dL (0.76-1.46); Thyroid Stim Hormone (TSH) 0.62 uIU/mL (0.358-3.74)
== END 2021-01-19 18:00 | disposition home or self-care (01) ==
LOC: LAB 12:39
PROVIDERS: Family Provider Internal Medicine; PCP Internal Medicine; Referring Provider Internal Medicine Cardiovascular Disease; Visit Provider Internal Medicine Cardiovascular Disease
DX: N18.32 Chronic kidney disease, stage 3b (principal); E27.3 Drug-induced adrenocortical insufficiency; E83.52 Hypercalcemia; M81.0 Age-related osteoporosis without current pathological fracture; E55.9 Vitamin D deficiency, unspecified; Z79.01 Long term (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; Z86.711 Personal history of pulmonary embolism
CPT/HCPCS: 36415; 80053; 82306; 84100; 84439; 84443; 85610

== ENCOUNTER 2021-02-01 13:26 | Outpatient (RCR) | payer MEDICARE, SELFPAY ==
[2021-01-20 02:16] VITALS: BMI 23.0
== END 2021-02-20 18:00 | disposition home or self-care (01) ==
LOC: LAB 13:26
PROVIDERS: Family Provider Internal Medicine; PCP Internal Medicine; Referring Provider Internal Medicine Cardiovascular Disease; Visit Provider Internal Medicine Cardiovascular Disease
DX: Z86.711 Personal history of pulmonary embolism (principal); Z79.01 Long term (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
CPT/HCPCS: 36416; 85610

== ENCOUNTER 2021-03-02 12:48 | Outpatient (RCR) | payer MEDICARE, SELFPAY ==
[2021-02-21 04:05] VITALS: BMI 23.0
[2021-03-02 13:00] LABS: Prothrombin Time Fingerstick 23.6 SEC (11.9-14.4)
== END 2021-03-22 18:00 | disposition home or self-care (01) ==
LOC: LAB 12:48
PROVIDERS: Family Provider Internal Medicine; PCP Internal Medicine; Referring Provider Internal Medicine Cardiovascular Disease; Visit Provider Internal Medicine Cardiovascular Disease
DX: Z86.711 Personal history of pulmonary embolism (principal); Z79.01 Long term (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
CPT/HCPCS: 36416; 85610

== ENCOUNTER 2021-03-31 13:40 | Outpatient (RCR) | payer MEDICARE, SELFPAY ==
[2021-03-22 22:52] VITALS: BMI 23.0
[2021-03-31 14:15] LABS: INR Fingerstick 2.4; Prothrombin Time Fingerstick 27.6 SEC (11.9-14.4)
== END 2021-03-31 18:00 | disposition home or self-care (01) ==
LOC: LAB 13:40
PROVIDERS: Family Provider Internal Medicine; PCP Internal Medicine; Referring Provider Internal Medicine Cardiovascular Disease; Visit Provider Internal Medicine Cardiovascular Disease
DX: Z86.711 Personal history of pulmonary embolism (principal); Z79.01 Long term (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
CPT/HCPCS: 36416; 85610

== ENCOUNTER 2021-04-28 06:32 | Outpatient (CLI) | payer MEDICARE, SELFPAY ==
--- NOTE | 2021-04-28 17:38 | STRESSREP_ITS ---
Stress Test Report Exercise myocardial perfusion stress test. Resting KG demonstrates normal sinus rhythm with a rate of 80 bpm normal intervals are noted resting blood pressure is 138/90 mmHg. The patient exercised according to regular Memo protocol for total duration of 6 minutes completing stage II of the Memo protocol the maximum heart rate attained was 142 bpm which is 100% of max impact at heart rate the maximum workload was 7 metabolic equivalents. At rest there were no ST or T wave changes noted suggest ischemia and at peak exercise upsloping ST changes were noted with did not meet the criteria for ischemia. No clinical angina was noted. The peak blood pressure was 180/72 mmHg. Myocardial perfusion protocol. 11.8 mCi of technetium 99m sestamibi was injected at rest. The patient exercised according to regular Memo protocol. At peak exercise 33.1 mCi of technetium 99m sestamibi was injected stress images were obtained stress and res t images were reconstructed in comparing the short axis vertical long horizontal long axis. Gated images were also obtained Perfusion SPECT analysis: Review of the images demonstrate normal uptake of tracer noted in all areas of the myocardium. The resting images similarly demonstrate normal uptake of tracer noted in all areas of the myocardium. No areas of reversibility are noted suggest ischemia and no previous infarct is noted. Gated SPECT analysis: The gated ejection fraction is 55%. Conclusion: Normal exercise myocardial perfusion stress test. Preserved ejection fraction. Good functional capacity.
== END 2021-04-28 23:59 | disposition home or self-care (01) ==
LOC: CVS 06:33
PROVIDERS: PCP Internal Medicine; Visit Provider Physician Assistant Medical
DX: R07.9 Chest pain, unspecified (principal)
CPT/HCPCS: 78452; 93017; A9500; A4216

== ENCOUNTER 2021-04-29 10:27 | Outpatient (RCR) | payer MEDICARE, SELFPAY ==
[2021-04-20 09:35] VITALS: BMI 23.0
[2021-04-29 10:41] LABS: INR Fingerstick 2.3; Prothrombin Time Fingerstick 27.2 SEC (11.7-14.9)
== END 2021-05-20 18:00 | disposition home or self-care (01) ==
LOC: LAB 10:27
PROVIDERS: Family Provider Internal Medicine; PCP Internal Medicine; Referring Provider Internal Medicine Cardiovascular Disease; Visit Provider Internal Medicine Cardiovascular Disease
DX: N17.9 Acute kidney failure, unspecified
CPT/HCPCS: 36416; 85610

== ENCOUNTER 2021-05-27 12:15 | Outpatient (RCR) | payer MEDICARE, SELFPAY ==
[2021-05-21 01:38] VITALS: BMI 23.0
[2021-05-27 12:25] LABS: INR Fingerstick 2.7; Prothrombin Time Fingerstick 31.5 SEC (11.7-14.9)
== END 2021-05-27 18:00 | disposition home or self-care (01) ==
LOC: LAB 12:15
PROVIDERS: Family Provider Internal Medicine; PCP Internal Medicine; Referring Provider Internal Medicine Cardiovascular Disease; Visit Provider Internal Medicine Cardiovascular Disease
DX: Z86.711 Personal history of pulmonary embolism (principal); Z79.01 Long term (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
CPT/HCPCS: 36416; 85610

== ENCOUNTER 2021-05-27 12:35 | Outpatient (CLI) | payer MEDICARE, SELFPAY ==
[2021-05-27 12:45] VITALS: BP 134/92; PULSE 89; RESP 12; TEMP 36.2; O2SAT 99; BMI 25.6
[2021-05-27] MEDS: DENOSUMAB 60 MG/ML SC (12:52)
== END 2021-05-27 23:59 | disposition home or self-care (01) ==
LOC: MEDOUTP 12:37
PROVIDERS: PCP Internal Medicine; Referring Provider Internal Medicine Endocrinology, Diabetes & Metabolism; Visit Provider Internal Medicine Endocrinology, Diabetes & Metabolism
DX: M81.0 Age-related osteoporosis without current pathological fracture (principal); Z86.711 Personal history of pulmonary embolism; Z79.01 Long term (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
CPT/HCPCS: 36416; 85610; 96372; J0897

== ENCOUNTER 2021-06-25 11:12 | Outpatient (RCR) | payer MEDICARE, SELFPAY ==
[2021-06-20 03:20] VITALS: BMI 23.0
[2021-06-28 10:01] LABS: INR Fingerstick 2.2; Prothrombin Time Fingerstick 26.3 SEC (11.7-14.9)
== END 2021-06-25 18:00 | disposition home or self-care (01) ==
LOC: LAB 11:12
PROVIDERS: Family Provider Internal Medicine; PCP Internal Medicine; Referring Provider Internal Medicine Cardiovascular Disease; Visit Provider Internal Medicine Cardiovascular Disease
DX: Z86.711 Personal history of pulmonary embolism (principal); Z79.01 Long term (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
CPT/HCPCS: 36416; 85610

== ENCOUNTER 2021-07-26 13:35 | Outpatient (RCR) | payer MEDICARE, SELFPAY ==
[2021-07-20 20:34] VITALS: BMI 23.0
[2021-07-26 13:45] LABS: INR Fingerstick 2.7; Prothrombin Time Fingerstick 30.6 SEC (11.7-14.9)
== END 2021-07-26 23:59 | disposition home or self-care (01) ==
LOC: LAB 13:35
PROVIDERS: Family Provider Internal Medicine; PCP Internal Medicine; Referring Provider Internal Medicine Cardiovascular Disease; Visit Provider Internal Medicine Cardiovascular Disease
DX: Z79.01 Long term (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 (principal); Z86.711 Personal history of pulmonary embolism
CPT/HCPCS: 36416; 85610

== ENCOUNTER 2021-08-30 13:23 | Outpatient (RCR) | payer MEDICARE, SELFPAY ==
[2021-08-20 06:53] VITALS: BMI 23.0
[2021-08-30 13:30] LABS: INR Fingerstick 2.2; Prothrombin Time Fingerstick 26.3 SEC (11.7-14.9)
== END 2021-09-19 02:12 | disposition home or self-care (01) ==
LOC: LAB 13:23
PROVIDERS: Family Provider Internal Medicine; PCP Internal Medicine; Referring Provider Internal Medicine Cardiovascular Disease; Visit Provider Internal Medicine Cardiovascular Disease
DX: Z79.01 Long term (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 (principal); Z86.711 Personal history of pulmonary embolism; Z86.718 Personal history of other venous thrombosis and embolism
CPT/HCPCS: 36416; 85610

== ENCOUNTER 2021-09-28 15:01 | Outpatient (RCR) | payer MEDICARE, SELFPAY ==
[2021-09-19 02:13] VITALS: BMI 23.0
[2021-09-28 15:58] LABS: International Normalized Ratio 2.1; Prothrombin Time (Protime)PT. 23.2 SECONDS (11.7-14.9)
== END 2021-09-28 18:00 | disposition home or self-care (01) ==
LOC: LAB 15:01
PROVIDERS: Family Provider Internal Medicine; PCP Internal Medicine; Referring Provider Internal Medicine Cardiovascular Disease; Visit Provider Internal Medicine Cardiovascular Disease
DX: Z79.01 Long term (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 (principal); Z86.711 Personal history of pulmonary embolism; Z86.718 Personal history of other venous thrombosis and embolism
CPT/HCPCS: 36415; 85610

== ENCOUNTER 2021-11-02 14:45 | Outpatient (RCR) | payer MEDICARE, SELFPAY ==
[2021-10-20 22:49] VITALS: BMI 23.0
[2021-11-02 14:55] LABS: INR Fingerstick 2.6; Prothrombin Time Fingerstick 30.3 SEC (11.7-14.9)
== END 2021-11-02 18:00 | disposition home or self-care (01) ==
LOC: LAB 14:45
PROVIDERS: Family Provider Internal Medicine; PCP Internal Medicine; Referring Provider Internal Medicine Cardiovascular Disease; Visit Provider Internal Medicine Cardiovascular Disease
DX: Z79.01 Long term (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 (principal); Z86.711 Personal history of pulmonary embolism; Z86.718 Personal history of other venous thrombosis and embolism
CPT/HCPCS: 36416; 85610

== ENCOUNTER 2021-11-16 21:43 | Inpatient (IN) | payer MEDICARE, SELFPAY ==
[2021-11-16 21:44] VITALS: BP 79/49; PULSE 85; RESP 15; TEMP 36.2; O2SAT 97; BMI 24.7
[2021-11-16 21:58] VITALS: BP 61/53; PULSE 113; RESP 24; O2SAT 94
--- NOTE | 2021-11-16 22:35 | EKG12_ITS ---
Test Reason : hypotension Blood Pressure : / mmHG Vent. Rate : 102 BPM Atrial Rate : 102 BPM P-R Int : 142 ms QRS Dur : 082 ms QT Int : 356 ms P-R-T Axes : 044 -28 050 degrees QTc Int : 463 ms Sinus tachycardia Otherwise normal ECG Confirmed by FIONA ZELAYA, LARISA ([id number]), greeting card editor AMA PETERSEN ([id number]) on 11/18/2021 9:45:42 AM Referred By: Confirmed By:LARISA JAIMES MD
--- NOTE | 2021-11-16 22:38 | EDS_ITS ---
HPI History of Present Illness Chief Complaint: Hypotension Detail of Chief Complaint: weak, fatigue, dizzy Informant: patient Onset/Context/Timing Onset: Days (4) Context: Gradual Onset Timing: Continuous Current Severity: Moderate Maximum Severity: Moderate Worsened by: standing up Relieved by: lying down Associated Symptoms Associated Symptoms: lightheaded and off balance when walking; fatigue, weakness Narrative Narrative: 4 days worth of feeling poorly and lightheaded, orthostatic symptoms. No syncope. No other symptoms; no chest pain, abdominal pain, vomiting, diarrhea. Her appetite has been somewhat poor, but she states she has been drinking fluids and urinating well. She has had hypotension in the past, when she told her daughter today that she was feeling poorly, her daughter came over and checked her blood pressure because the patient's cough is broken. It was somewhere around 81/62 which prompted visit here to the ED. 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 She has been on hydrocortisone ever since, 30 mg in the morning 10 mg in the evening, she has been compliant with this nothing has changed with regards to her medications lately, and the only dose she has not had today is the evening dose since she usually eats it with supper and she is here in the ER. Denies any recent fevers or coughing or any other symptoms of specific illness. [facility] Medical History Acute electrocardiogram changes Acute prerenal azotemia Kyler disease Atopic dermatitis 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, stage 3 Closed head injury (03/20/20) Cystocele with rectocele Elevated serum creatinine Essential (primary) hypertension Frequent falls History of DVT (deep vein thrombosis) History of kidney cancer History of non-ST elevation myocardial infarction (NSTEMI) (04/2009) History of pulmonary embolism Hypercalcemia Hyperlipidemia Hypoglycemia (03/20/20) Hypokalemia Hypotension Orthostatic hypotension Osteopenia determined by x-ray Pyelonephritis Recurrent deep vein thrombosis (DVT) Home Medications nitroglycerin 0.4 mg sublingual tablet 0.4 mg sublingual Q5-15M PRN Cardiac/Chest Pain 05/21/18 [History Last Taken Unknown] acetaminophen 500 mg tablet 1,000 mg PO Q6H PRN Pain Score 1-10 04/08/20 [Rx Last Taken 04/07/20 21:32] hydrocortisone 10 mg tablet 10 mg PO DAILY@1800 #30 tabs 04/08/20 [Rx Last Taken 04/08/20 20:44] hydrocortisone 10 mg tablet 20 mg PO DAILY@0600 #60 tabs 04/08/20 [Rx Last Taken 04/09/20 05:38] simvastatin 20 mg tablet 20 mg PO QHS 07/17/20 [History Last Taken Unknown] losartan 50 mg tablet 50 mg PO DAILY 01/20/21 [History Last Taken Unknown] cholecalciferol (vitamin D3) 25 mcg (1,000 unit) capsule 25 mcg PO DAILY 04/12/21 [History Last Taken Unknown] amlodipine 2.5 mg tablet (Norvasc) 2.5 mg PO DAILY #90 tabs 07/12/21 [Rx Last Taken Unknown] warfarin 2.5 mg tablet 2.5 mg PO DAILY@1700 #120 tabs 07/12/21 [Rx Last Taken Unknown] levocetirizine 5 mg tablet 5 mg PO DAILY 11/16/21 [History Last Taken Unknown] Allergy/AdvReac Type Severity Reaction Status Date / Time ciprofloxacin [From Cipro] Allergy Rash Verified 11/16/21 22:02 Penicillins Allergy Rash Verified 11/16/21 22:02 Family History Father CVA (cerebral vascular accident) Mother Myocardial infarction, Onset Age: 87 Surgical History H/O partial nephrectomy (2009) H/O total cystectomy History of bladder repair surgery History of left heart catheterization (04/2009) History of left nephrectomy (2000) History of total abdominal hysterectomy Social History Smoking Status: Never smoker alcohol intake: never substance use type: does not use caffeine: Yes what type of physical activity do you participate in: walking seatbelt use: always do you feel safe at home: Yes additional social history: [place]- Retired patient is retired ROS ROS ED Constitutional Constitutional ED: Reports anorexia, body ache(s), fatigue and malaise; Denies chills, fever(s), frequent falls or headache(s) Eyes Eyes: Denies change in vision or diplopia ENT ENT ED: Denies rhinorrhea or sore throat Cardiovascular Cardiovascular: Reports lightheadedness; Denies chest pain or palpitations Respiratory/Chest Respiratory/Chest: Denies cough or dyspnea Gastrointestinal Gastrointestinal: Denies abdominal pain, diarrhea, nausea or vomiting Genitourinary Genitourinary ED: Denies dysuria, hematuria or urinary frequency Musculoskeletal Musculoskeletal: Denies back pain or neck pain Integumentary Denies abscess or rash Neurologic Neurologic: Denies headache(s), paresthesias or weakness Psychiatric Psychiatric: Denies anxiety or suicidal thoughts EXAM Physical Exam Const Vital Signs: 11/16/21 21:44 11/16/21 21:58 11/16/21 22:00 Temperature 97.1 F L Temperature Source Temporal Pulse Rate 85 113 H Respiratory Rate 15 24 H Respiratory Effort Normal Non-Labored Respiratory Pattern Tachypnea Blood Pressure 79/49 L 61/53 L Blood Pressure Mean 59 55 Pulse Ox 97 94 Oxygen Delivery Method Room Air Room Air 11/16/21 22:39 11/16/21 23:03 11/17/21 00:01 Temperature Temperature Source Pulse Rate 101 H 91 Respiratory Rate 19 H 20 H Respiratory Effort Respiratory Pattern Blood Pressure 86/62 L 77/62 L Blood Pressure Mean 70 67 Pulse Ox 93 95 94 Oxygen Delivery Method Room Air Room Air Room Air Positive well nourished and well developed General Appearance ED: well developed and NAD HEENT Reports moist mucous membranes normocephalic and atraumatic Eyes PERRL and EOMs intact bilaterally Neck full ROM and supple Resp normal respiratory effort and clear to auscultation bilaterally Cardio regular rate and regular rhythm Rate: tachycardic Heart Sounds: murmur systolic II/ soft left sternal border GI non-tender and non-distended Auscultation: normoactive bowel sounds Palpation: soft Back/Spine no CVA tenderness General Back: other FROM Extremity normal to inspection General Extremety ED: Negative for edema, pulses abnormal or tenderness General Extremity: Negative for edema or pulses abnormal Neuro oriented x3, CN's II-XII intact bilaterally and no sensory deficits noted Neuro Narrative: Normal mfhzry-[id number]-rlij and omwv-wr-daxe bilaterally Sensorium / Orientation: awake and alert Motor Exam: strength 5/5 throughout Psych mental status grossly normal Skin no rashes or lesions noted and no wounds MDM MDM MDM Narrative Medical decision making narrative: Labs show a mild nonspecific leukocytosis of 12.3, worsening kidney function, and an elevated troponin in context of normal EKG and no symptoms of chest pain/angina. While giving the patient IV fluids, she was also given hydrocortisone 50 mg IV considering primary adrenal insufficiency as cause for her hypotension. After the first liter of fluids, blood pressure still in the 70s and 80s systolic, patient not acutely symptomatic of anything other than feeling fatigued. Given all of this, admission indicated. More fluids being administered. Infections in differential diagnosis, but at this time no specific infection has been found, and we did straight catheterized the patient for urine and she had none. Lab Data Attestation: I reviewed the patient's lab results. Labs: Laboratory Results - last 24 hr 11/16/21 11/16/21 11/16/21 22:45 22:45 22:45 WBC 12.3 H RBC 5.36 Hgb 16.4 H Hct 49.7 H MCV 92.7 MCH 30.6 MCHC 33.0 RDW Std Deviation 51.6 H RDW Coeff of Slava 15.1 H Plt Count 220 MPV 11.8 Immature Gran % (Auto) 1.000 H Neut % (Auto) 51.5 Lymph % (Auto) 29.6 [place] % (Auto) 14.8 H Eos % (Auto) 2.2 Baso % (Auto) 0.9 Absolute Neuts (auto) 6.3 Absolute Lymphs (auto) 3.63 Nucleated RBC % 0 Differential Comment SEE COMMENT Diff Path Review May foll Platelet Estimate ADEQUATE RBC Morphology N CHROM Anisocytosis RARE Macrocytosis RARE PT 17.8 H INR 1.5 Sodium 140 Potassium 4.6 Chloride 107 Carbon Dioxide 23.0 Anion Gap 10 BUN 38 H Creatinine 2.69 H Estim Creat Clear Calc 13.63 Est GFR (MDRD) Af Amer 22 L Est GFR (MDRD) Non-Af 18 L BUN/Creatinine Ratio 14.1 Glucose 94 Lactic Acid Calcium 9.9 Total Bilirubin 1.00 AST 29 ALT 25 Alkaline Phosphatase 89 Troponin I High Sens 619 H* Total Protein 6.4 Albumin 3.1 L Globulin 3.3 Albumin/Globulin Ratio 0.9 11/16/21 22:54 WBC RBC Hgb Hct MCV MCH MCHC RDW Std Deviation RDW Coeff of Slava Plt Count MPV Immature Gran % (Auto) Neut % (Auto) Lymph % (Auto) [place] % (Auto) Eos % (Auto) Baso % (Auto) Absolute Neuts (auto) Absolute Lymphs (auto) Nucleated RBC % Differential Comment Diff Path Review Platelet Estimate RBC Morphology Anisocytosis Macrocytosis PT INR Sodium Potassium Chloride Carbon Dioxide Anion Gap BUN Creatinine Estim Creat Clear Calc Est GFR (MDRD) Af Amer Est GFR (MDRD) Non-Af BUN/Creatinine Ratio Glucose Lactic Acid 2.0 Calcium Total Bilirubin AST ALT Alkaline Phosphatase Troponin I High Sens Total Protein Albumin Globulin Albumin/Globulin Ratio Radiography Chest X-Ray - ED: 1 View, Read by ED Physician, No Infiltrates and - (RLL nodule) Diagnostic Testing: Clinical Impression(s) from Imaging Studies Chest X-Ray 11/16/21 23:05 IMPRESSION: No acute abnormal cardiopulmonary finding. Electronically Signed: Anand Deshpande MD at 23:34 EDT Reading Location ID and State: [facility] / [place] Tel , Service support , Rhythm Strip Rhythm Strip: Sinus Tach Rate: 104 Ectopy: None EKG Initial EKG: Attestation: I personally reviewed and interpreted this EKG as follows: Interpretation: No Acute Injury Pattern and Sinus Tachycardia Critical Care Time Critical Care Time: Yes Critical care time (excluding procedures): 30-74 minutes (35 min), Including time spent:, Discussing w/Patient &/or Family/Loss Control Manager, Discussing w/Consultants, Arranging Admission or Transfer and Performing Direct Patient Care at Bedside Discharge Plan Dx/Rx/DC Orders Clinical Impression: Hypotension, Lee disease, 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, ANGELA (acute kidney injury), Elevated troponin Disposition Disposition: Acute Care Hospital [facility]
[2021-11-16 22:39] VITALS: O2SAT 93
[2021-11-16] MEDS: 0.9% Normal Saline 1,000 ML 999 ML IV ×2 (22:43→23:57)
[2021-11-16] MEDS: Hydrocortisone Sod Succinate 100 MG/2 ML Vial 50 MG IV (22:56)
[2021-11-16 22:57] LABS: Absolute Lymphocyte Count 3.63 X10^3/uL (0.83-4.51); Absolute Neutrophil Count 6.3 X10^3/uL (2.0-7.7); Basophil# 0.11 X10^3/uL; Basophil% 0.9 % (0-1); Eosinophil# 0.27 X10^3/uL; Eosinophils% 2.2 % (0-5); Hematocrit 49.7 % (37-47); Hemoglobin 16.4 g/dL (12.0-15.0); Lymphocyte # 3.63 X10^3/ul (0.83-4.51); Lymphocyte % 29.6 % (19-41); Mean Corpuscular Hgb 30.6 pg (27.0-32.0); Mean Corpuscular Volume 92.7 fL (81-99); Mean Platelet Vol. 11.8 fl (6.2-12.0); Monocyte# 1.82 X10^3/uL; Monocyte% 14.8 % (0-10); NRBC Flagged by Analyzer 0 % (0-5); Neutrophil # 6.31 X10^3/uL (2.7-7.7); Neutrophil % 51.5 % (47-70); POSITIVE DIFFERENTIAL YES; Platelet Count 220 K/mm3 (150-450); RBC Distribution Width CV 15.1 % (11.6-14.6); RBC Distribution Width SD 51.6 fl (35.1-43.9); Red Blood Count 5.36 M/mm3 (4.2-5.4); White Blood Count 12.3 K/mm3 (4.4-11.0)
[2021-11-16 23:03] VITALS: BP 86/62; PULSE 101; RESP 19; O2SAT 95
--- NOTE | 2021-11-16 23:05 | RAD_ITS ---
STUDY: X-RAY CHEST REASON FOR EXAM: Female, 76 years old. Weakness TECHNIQUE: Portable, upright, AP chest radiograph COMPARISON: 04/22/2020 FINDINGS: The lungs are clear and expanded. There is no demonstrated pleural abnormality. Normal size heart. Normal mediastinum and timothy. Normal visualized pulmonary arteries. There is atherosclerotic tortuosity of the aortic arch and descending thoracic aorta. There is no demonstrated abnormality of the visualized soft tissue structures of the upper abdomen. RAD/Chest 1 View (Portable) IMPRESSION: No acute abnormal cardiopulmonary finding. Electronically Signed: Anand Deshpande MD at 23:34 EDT ,
[2021-11-16 23:16] LABS: International Normalized Ratio 1.5; Prothrombin Time (Protime)PT. 17.8 SECONDS (11.7-14.9)
[2021-11-16 23:19] LABS: ALB/GLOB Ratio 0.9 RATIO (0.9-2.4); AST(SGOT) 29 U/L (15-37); Alanine Aminotransfer ALT/SGPT 25 U/L (13-56); Albumin, Serum 3.1 g/dL (3.2-5.0); Alkaline Phosphatase 89 U/L (45-117); Anion Gap 10 (5-15); BUN 38 mg/dL (7-18); BUN/Creat Ratio 14.1 RATIO (10-20); Calcium,Total 9.9 mg/dL (8.5-10.1); Chloride 107 mmol/L (98-107); Creatinine, Serum 2.69 mg/dL (0.55-1.02); EST Glomerular Filtration Rate 18 mL/min (>60); Est Glom Filt Rate - Afr Amer 22 mL/min (>60); Estimated Creatinine Clearance 13.63 ml/min; Globulin 3.3 g/dL (2.2-4.2); Glucose 94 mg/dL (74-106); Potassium 4.6 mmol/L (3.5-5.1); Protein, Total 6.4 g/dL (6.4-8.2); Sodium Level 140 mmol/L (136-145); Troponin-I HS 619 pg/mL (3.0-54.0)
[2021-11-16 23:21] LABS: Differential Indicated SCAN CRITERIA MET
[2021-11-16 23:22] LABS: Anisocytosis RARE; Macrocytosis RARE; Platelet Estimate ADEQUATE (ADEQ); Red Cell Morphology N CHROM NORMAL (NORM C&C)
--- NOTE | 2021-11-16 23:50 | ED.RN ---
THIS RN ATTEMPTED TO STRAIGHT CATH PT AT 2345. NO URINE OUTPUT PRESENT. BLADDER SCANNED PT. PT HAD 75 ML PRESENT.
[2021-11-17] VITALS (24 sets, daily range): BP systolic 66–129; BP diastolic 54–87; PULSE 71–100; RESP 16–25; TEMP 36.1–36.7; O2SAT 92–99; BMI 25.4
--- NOTE | 2021-11-17 00:53 | ED.RN ---
THIS RN ATTEMPTED TO CALL REPORT AT 0055 TO ICU. HYPERBARIC TECHNICIAN ASKED TO CALL BACK.
--- NOTE | 2021-11-17 00:55 | HP.PCM.HOS_ITS ---
[facility] - General General Date of Admission: 11/17/21 Date of Service: 11/17/21 Chief Complaint: Lightheadedness HPI Narrative VALENTIN WEINSTEIN, is a 76 F with a significant history of [place]'s disease; ovary removal; hysterectomy; left kidney donation; and removal of tumor from right kidney who presented to emergency department with 4-day history of lightheadedness. Associated with her symptoms is malaise; fatigue and disequilibrium. Her symptoms was persistent. Her daughter checked her blood pressure and her systolic blood pressure was in the lower 80s so patient was brought to the emergency department. [facility] [place] Medical History Acute electrocardiogram changes Acute prerenal azotemia [place] disease Atopic dermatitis 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, stage 3 Closed head injury (03/20/20) Cystocele with rectocele Elevated serum creatinine Essential (primary) hypertension Frequent falls History of DVT (deep vein thrombosis) History of kidney cancer History of non-ST elevation myocardial infarction (NSTEMI) (04/2009) History of pulmonary embolism Hypercalcemia Hyperlipidemia Hypoglycemia (03/20/20) Hypokalemia Hypotension Orthostatic hypotension Osteopenia determined by x-ray Pyelonephritis Recurrent deep vein thrombosis (DVT) Home Medications nitroglycerin 0.4 mg sublingual tablet 0.4 mg sublingual Q5-15M PRN Cardiac/Chest Pain 05/21/18 [History Last Taken Unknown] acetaminophen 500 mg tablet 1,000 mg PO Q6H PRN Pain Score 1-10 04/08/20 [Rx Last Taken 04/07/20 21:32] hydrocortisone 10 mg tablet 10 mg PO DAILY@1800 #30 tabs 04/08/20 [Rx Last Taken 04/08/20 20:44] hydrocortisone 10 mg tablet 20 mg PO DAILY@0600 #60 tabs 04/08/20 [Rx Last Taken 04/09/20 05:38] simvastatin 20 mg tablet 20 mg PO QHS 07/17/20 [History Last Taken Unknown] losartan 50 mg tablet 50 mg PO DAILY 01/20/21 [History Last Taken Unknown] cholecalciferol (vitamin D3) 25 mcg (1,000 unit) capsule 25 mcg PO DAILY 04/12/21 [History Last Taken Unknown] amlodipine 2.5 mg tablet (Norvasc) 2.5 mg PO DAILY #90 tabs 07/12/21 [Rx Last Taken Unknown] warfarin 2.5 mg tablet 2.5 mg PO DAILY@1700 #120 tabs 07/12/21 [Rx Last Taken Unknown] levocetirizine 5 mg tablet 5 mg PO DAILY 11/16/21 [History Last Taken Unknown] Allergy/AdvReac Type Severity Reaction Status Date / Time ciprofloxacin [From Cipro] Allergy Rash Verified 11/16/21 22:02 Penicillins Allergy Rash Verified 11/16/21 22:02 Family History Father CVA (cerebral vascular accident) Mother Myocardial infarction, Onset Age: 87 Surgical History H/O partial nephrectomy (2009) H/O total cystectomy History of bladder repair surgery History of left heart catheterization (04/2009) History of left nephrectomy (2000) History of total abdominal hysterectomy Social History Smoking Status: Never smoker alcohol intake: never substance use type: does not use caffeine: Yes what type of physical activity do you participate in: walking seatbelt use: always do you feel safe at home: Yes additional social history: [place]- Retired patient is retired ROS ROS Narrative Pertinent positives and pertinent negatives as noted in HPI. All other systems were reviewed and are negative Vital Signs Vital Signs Vital Signs: 11/16/21 21:44 11/16/21 21:58 11/16/21 22:00 Temperature 97.1 F L Temperature Source Temporal Pulse Rate 85 113 H Respiratory Rate 15 24 H Respiratory Effort Normal Non-Labored Respiratory Pattern Tachypnea Blood Pressure 79/49 L 61/53 L Blood Pressure Mean 59 55 Pulse Ox 97 94 Oxygen Delivery Method Room Air Room Air 11/16/21 22:39 11/16/21 23:03 11/17/21 00:01 Temperature Temperature Source Pulse Rate 101 H 91 Respiratory Rate 19 H 20 H Respiratory Effort Respiratory Pattern Blood Pressure 86/62 L 77/62 L Blood Pressure Mean 70 67 Pulse Ox 93 95 94 Oxygen Delivery Method Room Air Room Air Room Air 11/17/21 00:51 Temperature 98.1 F Temperature Source Temporal Pulse Rate 100 Respiratory Rate 25 H Respiratory Effort Respiratory Pattern Blood Pressure 84/63 L Blood Pressure Mean 70 Pulse Ox 96 Oxygen Delivery Method Room Air Weight Weight: 61.235 kg Body Mass Index (BMI) 24.7 Physical Exam Narrative Physical exam: General: Well-nourished, well-developed. Head: Normocephalic, atraumatic, no tenderness Eyes: Vision is grossly intact. EOMI ENT, no trauma, moist mucous membranes, no rhinorrhea Neck: Nontender, full range of motion, no spinal tenderness, deformities, step- off CVS: Regular rate and rhythm. S1-S2 present. No murmur, gallop or rub. Respiratory : clear to auscultation bilaterally, chest wall nontender, no wheezing Abdomen: Soft, nontender, nondistended, normal bowel sounds, no masses : Deferred Back: Nontender, no CVA tenderness, no midline spinal tenderness, deformities, step-offs Extremities: Nontender full range of motion, no trauma Skin: Normal color, no trauma, abrasions Neuro: Alert, oriented, cranial nerves II through XII grossly intact. Psychiatry: Normal mood. Normal affect. Not depressed. Not anxious. Results Lab / Micro Data Result Diagrams: 11/17/21 03:45 11/17/21 03:45 Labs: Laboratory Results - last 24 hr 11/16/21 22:45: WBC 12.3 H, RBC 5.36, Hgb 16.4 H, Hct 49.7 H, MCV 92.7, MCH 30.6, MCHC 33.0, RDW Std Deviation 51.6 H, RDW Coeff of Slava 15.1 H, Plt Count 220, MPV 11.8, Immature Gran % (Auto) 1.000 H, Neut % (Auto) 51.5, Lymph % (Auto) 29.6, Stark % (Auto) 14.8 H, Eos % (Auto) 2.2, Baso % (Auto) 0.9, Absolute Neuts (auto) 6.3, Absolute Lymphs (auto) 3.63, Nucleated RBC % 0, Differential Comment SEE COMMENT, Diff Path Review May foll, Platelet Estimate ADEQUATE, RBC Morphology N CHROM, Anisocytosis RARE, Macrocytosis RARE 11/16/21 22:45: PT 17.8 H, INR 1.5 11/16/21 22:45: Sodium 140, Potassium 4.6, Chloride 107, Carbon Dioxide 23.0, Anion Gap 10, BUN 38 H, Creatinine 2.69 H, Estim Creat Clear Calc 13.63, Est GFR (MDRD) Af Amer 22 L, Est GFR (MDRD) Non-Af 18 L, BUN/Creatinine Ratio 14.1, Glucose 94, Calcium 9.9, Total Bilirubin 1.00, AST 29, ALT 25, Alkaline Phosphatase 89, Troponin I High Sens 619 H*, Total Protein 6.4, Albumin 3.1 L, Globulin 3.3, Albumin/Globulin Ratio 0.9 11/16/21 22:54: Lactic Acid 2.0 Rhythm Strip Rhythm Strip: Sinus Tach Rate: 104 Ectopy: None Radiology Impression Chest X-Ray 11/16/21 23:05 IMPRESSION: No acute abnormal cardiopulmonary finding. Electronically Signed: Anand Deshpande MD at 23:34 EDT Reading Location ID and State: [facility] / [place] Tel , Service support , Assessment & Plan Assessment/Plan (1) Hypotension: (2) Elevated troponin: PLAN: Plan Hypotension Likely secondary to her [place]'s disease. Hold off home hydrocortisone p.o. Hydrocortisone IV [id number] ordered. Midodrine and Florinef ordered. Chest x-ray was visualized and independently interpreted. I agree with radiologist interpretation of no acute cardiopulmonary process. Received normal saline bolus at the emergency department. Hold home anti-hypertensive regimen. Blood culture ordered emergency department, follow-up Admit intensive care unit. 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 Baseline creatinine of less than 2. On presentation creatinine was 2.69. BUN is 35 stable. BUN over creatinine is 17.2 Gentle IV hydration. Trend BMP. History of PE and subtherapeutic INR. Escalate dose of Coumadin. Trend INR Elevated troponin High since he troponin presentation was 619. Patient has no chest pain. EKG with no ST-T abnormalities. Likely type II. Trend troponins. Disequilibrium PT consult for balance training. DVT prophylaxis Coumadin as above. Charges/Coding Visit Charges Inpatient E&M: 71040 Init Hosp L3
[2021-11-17] MEDS: 0.9% Normal Saline 1,000 ML 999 ML IV (02:26)
[2021-11-17 03:25] LABS: Reflex Lactate? Y
[2021-11-17] MEDS: 0.9% Normal Saline 1,000 ML 150 ML IV (03:27)
--- NOTE | 2021-11-17 04:40 | ED.RN ---
SEE DOWN TIME CHARTING FROM [id number]- [id number]
[2021-11-17 05:48] LABS: Absolute Neutrophil Count 6.4 X10^3/uL (2.0-7.7); Basophil# 0.06 X10^3/uL; Basophil% 0.8 % (0-1); Eosinophil# 0.03 X10^3/uL; Eosinophils% 0.4 % (0-5); Hematocrit 43.6 % (37-47); Hemoglobin 13.8 g/dL (12.0-15.0); Lymphocyte % 11.3 % (19-41); Mean Corp Hgb Conc 31.7 g/dL (32-36); Mean Corpuscular Hgb 29.9 pg (27.0-32.0); Mean Corpuscular Volume 94.6 fL (81-99); Mean Platelet Vol. 11.9 fl (6.2-12.0); Monocyte# 0.46 X10^3/uL; Monocyte% 5.8 % (0-10); NRBC Flagged by Analyzer 0 % (0-5); Neutrophil # 6.41 X10^3/uL (2.7-7.7); Neutrophil % 80.4 % (47-70); Platelet Count 175 K/mm3 (150-450); RBC Distribution Width CV 14.9 % (11.6-14.6); RBC Distribution Width SD 51.7 fl (35.1-43.9); Red Blood Count 4.61 M/mm3 (4.2-5.4)
[2021-11-17 06:11] LABS: Anion Gap 11 (5-15); BUN 35 mg/dL (7-18); BUN/Creat Ratio 17.2 RATIO (10-20); Calcium,Total 8.5 mg/dL (8.5-10.1); Chloride 111 mmol/L (98-107); Creatinine, Serum 2.04 mg/dL (0.55-1.02); EST Glomerular Filtration Rate 25 mL/min (>60); Est Glom Filt Rate - Afr Amer 30 mL/min (>60); Estimated Creatinine Clearance 17.98 ml/min; Glucose 101 mg/dL (74-106); Potassium 4.7 mmol/L (3.5-5.1); Sodium Level 141 mmol/L (136-145)
--- NOTE | 2021-11-17 06:38 | SEPSISATNOTE ---
Sepsis Attestation Sepsis Attestation: Sepsis Ruled Out Date exam was performed: 11/17/21 Time exam was performed: 01:00
[2021-11-17] MEDS: Fludrocortisone Acetate 0.1 MG Tablet PO (06:43)
[2021-11-17] MEDS: Midodrine HCl 5 MG Tablet 10 MG PO ×3 (06:43→16:45)
[2021-11-17] MEDS: Hydrocortisone Sod Succinate 100 MG/2 ML Vial 50 MG IV (06:49)
[2021-11-17] MEDS: 0.9% Saline Lock 10 ML Syringe IV (06:51)
--- NOTE | 2021-11-17 07:04 | ECHOD_ITS ---
Version 2 Reason For Study: CAD, Hypotension Procedure This was a 2D Doppler, Color Flow transthoracic echocardiogram. The study was technically difficult. Exam performed portable in ICU/CCU. Left Ventricle Normal LV size. Mild concentric left ventricular hypertrophy. Left ventricular systolic function is normal. The estimated ejection fraction is 65 %. No evidence for diastolic dysfunction. No regional wall motion abnormalities noted. Right Ventricle Normal RV size. Normal systolic function. Atria Normal left atrium. Normal right atrium. No doppler evidence for ASD. Mitral Valve There is no mitral annular calcification. Mild diffuse mitral valve thickening. Mild focal mitral valve calcification of the anterior leaflet. Moderate mitral valve prolapse. Moderate (2+) mitral valve insufficiency. Tricuspid Valve Normal tricuspid valve. Mild to moderate (1-2+) tricuspid valve insufficiency. Right ventricular systolic pressure estimated to be 29 mmHg. Aortic Valve Trisinus/trileaflet aortic valve. Moderate focal aortic valve calcification. Mild aortic stenosis. Pulmonic Valve The pulmonic valve is not well visualized. Great Vessels Normal sized aortic root. Pericardium/Pleural No pericardial effusion. Epicardial fat. MMode/2D Measurements & Calculations LVIDd: 3.2 cm IVSd: 1.3 cm LVOT diam: 2.0 cm LVIDs: 1.8 cm LVPWd: 1.3 cm LVOT area: 3.0 cm2 RVDd: 3.4 cm FS: 41.8 % Ao root diam: 3.0 cm LAV(MOD-bp): 34.5 ml LVAd ap4: 21.8 cm2 LAV(MOD-bp) Indexed: 21.0 ml/m2 LVLd ap4: 7.8 cm LAV(MOD-sp2): 27.9 ml EDV(MOD-sp4): 48.4 ml LAV(MOD-sp4): 38.6 ml EDV(sp4-el): 51.6 ml LVAs ap4: 11.4 cm2 LVLs ap4: 6.8 cm ESV(MOD-sp4): 15.7 ml ESV(sp4-el): 16.1 ml EF(MOD-sp4): 67.6 % EF(sp4-el): 68.9 % LVAd ap2: 23.9 cm2 SV(MOD-sp4): 32.7 ml SV(MOD-sp2): 42.3 ml LVLd ap2: 7.5 cm EDV(MOD-sp2): 61.7 ml EDV(sp2-el): 64.2 ml LVAs ap2: 12.0 cm2 LVLs ap2: 6.6 cm ESV(MOD-sp2): 19.4 ml ESV(sp2-el): 18.6 ml EF(MOD-sp2): 68.5 % SV(sp4-el): 35.6 ml LA dimension(2D): 4.5 cm LA A4 area: 16.1 cm2 RA A4 area: 18.7 cm2 Doppler Measurements & Calculations MV E max henry: 72.0 cm/sec Lat Peak E' Henry: 5.8 cm/sec Med Peak E' Henry: 6.3 cm/sec MV A max henry: 117.3 cm/sec E/E' lat: 12.5 E/E' med: 11.4 MV E/A: 0.61 Ao V2 max: 154.6 cm/sec LV V1 max: 75.5 cm/sec SV(LVOT): 55.4 ml Ao max P.6 mmHg LV V1 max P.3 mmHg Ao V2 mean: 99.9 cm/sec LV V1 mean P.4 mmHg Ao mean P.6 mmHg LV V1 mean: 57.0 cm/sec Ao V2 VTI: 31.0 cm LV V1 VTI: 18.2 cm OMID(I,D): 1.8 cm2 OMID(V,D): 1.5 cm2 PA V2 max: 101.8 cm/sec TR max henry: 256.5 cm/sec TR max P.3 mmHg ECHO/Echo Complete Interpretation Summary The study was technically difficult. Left ventricular systolic function is normal. The estimated ejection fraction is 65 %. Mild concentric left ventricular hypertrophy. Mild diffuse mitral valve thickening. Mild focal mitral valve calcification of the anterior leaflet. Moderate mitral valve prolapse. Moderate (2+) mitral valve insufficiency. Mild to moderate (1-2+) tricuspid valve insufficiency. Moderate focal aortic valve calcification. Mild aortic stenosis. Epicardial fat. Right ventricular systolic pressure estimated to be 29 mmHg. No evidence for diastolic dysfunction. Ordering Physician: Sindi Tarango Referring Physician: Amos Fulton M.D. Performed By: Alka Manriquez RDCS
[2021-11-17 07:09] LABS: Troponin-I HS 480 pg/mL (3.0-54.0)
[2021-11-17] MEDS: Lactated Ringers 1,000 ML 125 ML IV ×2 (07:51→16:40)
[2021-11-17 09:29] LABS: Partial Thromboplast Time 41.2 Seconds (24.1-36.2)
[2021-11-17] MEDS: HEPARIN/D5w 25,000 UNITS 25,000 UNITS/250 ML IV.SOLN. 10 UNITS CONT INF (09:37)
[2021-11-17] MEDS: Heparin Injection (Vial) 5,000 UNIT/ML VIAL 4500 UNIT IV (09:59)
[2021-11-17 10:31] LABS: Troponin-I HS 482 pg/mL (3.0-54.0)
[2021-11-17] MEDS: Loratadine 10 MG Tablet PO (10:55)
[2021-11-17] MEDS: Cholecalciferol (VIT D3) 25 MCG TABLET (1,000 UNITS) PO (10:55)
--- NOTE | 2021-11-17 11:37 | PCM.HOSP.N ---
Hospitalist Note Patient was admitted early this morning complaining of lightheadedness. She stated up until the morning of admission she had been feeling fairly well having intermittent lightheadedness at home for about 4 days however on the day of presentation she states she was dramatically lightheaded throughout the day. She had some associated malaise, fatigue, and just equilibrium. Her symptoms were persistent and unremitting. Her daughter checked her blood pressure at home and it was noted to be 80 systolic so they brought her into the emergency department. She is typically on antihypertensives. She was previously diagnosed with [place]'s disease and takes hydrocortisone and Florinef at baseline. She has been taking her medications. It appears her baseline blood pressures on her antihypertensives run between 120 and 130 systolic for the most part. Initial blood pressure in the emergency department was 79/49. She was noted to have worsening renal function with a creatinine 2.69 on admission and a baseline being 1.5-1.6 as far as I can tell from previous records. Her blood pressure is responding well to IV fluids. At the time of me evaluating her she had already gotten 2 L. I will go ahead and give her 1 more liter and I stress dose her steroids at 100 3 times daily. Cultures are pending however my suspicion for infection is low and she actually looks more dehydrated than anything. Her renal function is improving and her serum creatinine is down to 2.04 this morning with just IV fluids. We will continue IV fluids, continue monitoring her pressure and if she remains stable plan to transfer to PCU with possible discharge in the next 24 hours if she remains clinically stable. Troponins were elevated I suspect this is demand ischemia. Echocardiogram was ordered and already resulted with an EF of 65%, mild concentric LVH, diffuse mitral valve thickening-mild, moderate mitral valve prolapse, mild aortic stenosis, and a right ventricular systolic pressure of 29 mmHg. Troponins did trend down and without wall motion abnormality I suspect this is all demand ischemia related to her hypotension. We will reevaluate tomorrow and she may be able to go home depending on clinical picture.
--- NOTE | 2021-11-17 12:00 | CASEMGMT ---
RN DARSHANA Face to Face with patient for initial transition planning/care coordination assessment. RN CM introduced self and role at [facility]. Patient sitting in chair, alert and oriented, daughter at bedside. Patient willing to participate in assessment and is able to answer all questions appropriately. Care providers, pharmacy, and demographics verified. Patient wishes to discharge home, denies need for home health at this time. Patient states she has no further needs or concerns at this time. CM to follow for discharge planning needs that may arise. PCP: Donaldo Specialists: Sukhdeep, director new product; , national dedicated truck driver; Estuardo, electrical installation supervisor; Marco A, Geek Squad Agent [facility]erred [facility]acy: [facility] Insurance: [employer] Prescription Benefit: yes Living Will/HPOA: yes, daughter Lisa Lopez, HPOA LNOK: daughters Living Arrangements: Patient lives alone in a single story home with ramp to enter the home. Patient states she is independent at home. Transportation: self, daughter DME/HHC: Patient states she has shower chair, raised toilet, cane, walker, and grab bars at home. [facility]. Patient has had [facility] in the past. Disposition Plan: Patient to discharge home with family support and follow-up plans in place. Will monitor for outpatient therapy vs HHC pending progress with therapy. Yi MONDRAGON, RN, CM
--- NOTE | 2021-11-17 12:06 | CHAPLAIN ---
Type of Pastoral Visit _x__ Initial Visit ___ Follow-up Visit ___ On-call Visit ___ General Patient Visit ___ Spiritual Assessment ___ Family Conference ___ Bereavement ___ Rapid Response ___ Code Blue ___ Other (describe below) Pastoral Care Referral From _x__ Patient ___ Family ___ Nurse ___ Physician ___ Electrophysiology Nurse Practitioner ___ Primary Health Organisation Manager ___ Other (describe below) Sacrament/Intervention _x__ Active listening ___ Anointing ___ Tenriism _x__ Bereavement ___ Communion ___ Cierra exploration ___ _x__ Life review _x__ Prayer ___ Reconciliation ___ Sacrament of Sick _x__ Supportive presence ___ Wedding ___ Other (describe below) Pastoral Comments patient speaks of her admission and then goes into story of 's in 2020; supportive listening and care for grief; pt talks of family support and relationship to her bahai; pt requested notification to her bahai/garnishment specialist which was done by this blocking machine tender; pt daughter came at this time; prayer offered
[2021-11-17 12:14] LABS: Pathologist Review Reviewed
[2021-11-17] MEDS: Hydrocortisone Sod Succinate 100 MG/2 ML Vial IV ×2 (13:24→20:28)
[2021-11-17 13:58] LABS: Mucous, Urine 0 SEEN /hpf (<or=2+)
[2021-11-17 13:59] LABS: Color, Urine Yellow (Yellow); Glucose, Dipstick Normal (Normal); Ketone-Dipstick 15 mg/dl (Negative); Leukocyte Esterase-Dipstick 500 /ul (Negative); Nitrite-Dipstick Negative (Negative); Occult Blood-Urine 10 /ul (Negative); Protein-Dipstick 15 mg/dl (Negative); Specific Gravity, Urine 1.015 (1.002-1.030); Urine Bilirubin Dipstick Negative (Negative); Urine Clarity Sl. Cloudy (Clear); Urine Urobilinogen Normal (Normal)
[2021-11-17 14:05] LABS: White Blood Cells >100 SEEN /hpf (0-5)
[2021-11-17 14:06] LABS: Bacteria RARE /hpf (None Seen); Red Blood Cells-Urine 0-5 SEEN /hpf (0-5); Squamous Epithelial Cells - UA 0-5 SEEN /hpf (5-10)
--- NOTE | 2021-11-17 14:53 | PCM.PN.INT ---
Assessment & Plan Assessment/Plan (1) Hypotension: PLAN: Resolved with IV hydrocortisone. Recommend doubling her home dose of p.o. cortisol and follow-up with her office system analyst as planned later this month. There is no evidence of sepsis, her echocardiogram shows no focal wall motion abnormality although her troponin was elevated. See below. I agree with no clear need for antibiotics at this time. (2) Elevated troponin: PLAN: Likely type II ischemia/insufficiency leading to elevated troponin. Troponins are decreasing with gnosticist of normal blood pressure. Echocardiogram shows no worrisome findings. The patient does have mild to moderate mitral prolapse and tricuspid valve insufficiency, which should be followed up periodically by cardiology Recommend monitoring blood pressure and keeping it within normal range. (3) ANGELA (acute kidney injury): PLAN: The acute renal insufficiency is also likely secondary to her hypotension. Her creatinine is trending towards baseline. (4) 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, stage 3: PLAN: Likely due to prior left donor nephrectomy and left renal cyst removal. Also likely some hypertensive chronic changes with superimposed acute renal insufficiency due to low flow in setting of hypotension. -Avoid nephrotoxins -Maintain MAP greater than 65 and systolic blood pressure greater than 90 -Agree with treatment by hospitalist team -The patient will keep her planned follow-up in November with her social studies teacher. 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 If she truly only had 1 DVT 13 years ago she may not need chronic Coumadin therapy, however I would defer to her primary care physician who has access to older records on this pleasant patient. She did not recall another reason for anticoagulation aside from the DVT Subjective Subjective This pleasant 76-year-old woman feels better, with complete resolution of her dizziness including with ambulation. She did not require pressors. She has had 4 days of dizziness with no clear precipitant, was brought to the hospital when her daughter found her blood pressure in the 80s. The amount of time hypotensive is uncertain. She denied any chest discomfort, fevers, chills, sweats, palpitations, swelling, and is compliant with her medications. No recent medication dose changes. No recent endocrinology visit, although she states she has 5 appointments in November with nephrology cardiology, endocrine, and hematology. 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 Review of her DVT history shows that she recalls only 1 DVT 13 years ago, and denies previous pulmonary embolism. She has been on warfarin ever since. 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 Objective Data Objective Data Vital Signs: Vital Signs Temp Pulse Resp BP Pulse Ox O2 Del Method 36.5 C L 87 16 125/87 H 97 Room Air 11/17/21 11:43 11/17/21 12:00 11/17/21 11:43 11/17/21 11:43 11/17/21 11:43 11/17/21 11:43 Oxygen Delivery Method Room Air Weight: 63.2 kg Body Mass Index (BMI) 25.4 Intake & Output: Intake and Output for Last 24 Hours 11/15/21 11/16/21 11/17/21 23:59 23:59 23:59 Intake Total 1000 / 1000 3427.5 / 3427.5 Output Total 0 / 0 Balance 1000 / 1000 3427.5 / 3427.5 Albumin is 3.1, just below the normal limit. Lactate is normal at 1.1. Pro time is 17.8 on warfarin Lab / Micro Data Attestation: I reviewed the patient's lab results. Lab results narrative: Her baseline creatinine is listed 2.0, today it was 2.04. Troponin, lactate and renal function are all trending better after hydration and gnosticist of normal blood pressure. Other labs as noted below. No new EKG. Echocardiogram showed mild left ventricular hypertrophy with normal ejection fraction, moderate mitral valve prolapse, and normal pulmonary pressures. Mild to moderate mitral and tricuspid valve insufficiency. Result Diagrams: 11/17/21 03:45 11/17/21 03:45 Labs: Laboratory Results - last 24 hr 11/16/21 22:45: WBC 12.3 H, RBC 5.36, Hgb 16.4 H, Hct 49.7 H, MCV 92.7, MCH 30.6, MCHC 33.0, RDW Std Deviation 51.6 H, RDW Coeff of Slava 15.1 H, Plt Count 220, MPV 11.8, Immature Gran % (Auto) 1.000 H, Neut % (Auto) 51.5, Lymph % (Auto) 29.6, Webb % (Auto) 14.8 H, Eos % (Auto) 2.2, Baso % (Auto) 0.9, Absolute Neuts (auto) 6.3, Absolute Lymphs (auto) 3.63, Nucleated RBC % 0, Differential Comment SEE COMMENT, Diff Path Review Reviewed, Platelet Estimate ADEQUATE, RBC Morphology N CHROM, Anisocytosis RARE, Macrocytosis RARE 11/16/21 22:45: PT 17.8 H, INR 1.5 11/16/21 22:45: Sodium 140, Potassium 4.6, Chloride 107, Carbon Dioxide 23.0, Anion Gap 10, BUN 38 H, Creatinine 2.69 H, Estim Creat Clear Calc 13.63, Est GFR (MDRD) Af Amer 22 L, Est GFR (MDRD) Non-Af 18 L, BUN/Creatinine Ratio 14.1, Glucose 94, Calcium 9.9, Total Bilirubin 1.00, AST 29, ALT 25, Alkaline Phosphatase 89, Troponin I High Sens 619 H*, Total Protein 6.4, Albumin 3.1 L, Globulin 3.3, Albumin/Globulin Ratio 0.9 11/16/21 22:54: Lactic Acid 2.0 11/17/21 03:45: WBC 8.0, RBC 4.61, Hgb 13.8, Hct 43.6, MCV 94.6, MCH 29.9, MCHC 31.7 L, RDW Std Deviation 51.7 H, RDW Coeff of Slava 14.9 H, Plt Count 175, MPV 11.9, Immature Gran % (Auto) 1.300 H, Neut % (Auto) 80.4 H, Lymph % (Auto) 11.3 L, Webb % (Auto) 5.8, Eos % (Auto) 0.4, Baso % (Auto) 0.8, Absolute Neuts (auto) 6.4, Absolute Lymphs (auto) 0.90, Nucleated RBC % 0 11/17/21 03:45: Sodium 141, Potassium 4.7, Chloride 111 H, Carbon Dioxide 19.0 L, Anion Gap 11, BUN 35 H, Creatinine 2.04 H, Estim Creat Clear Calc 17.98, Est GFR (MDRD) Af Amer 30 L, Est GFR (MDRD) Non-Af 25 L, BUN/Creatinine Ratio 17.2, Glucose 101, Calcium 8.5 11/17/21 03:45: Troponin I High Sens 480 H* 11/17/21 03:50: Lactic Acid 1.0 11/17/21 06:30: APTT 41.2 H 11/17/21 07:00: Urine Color Yellow, Urine Clarity Sl. Cloudy, Urine pH 5.0, Ur Specific [place] 1.015, Urine Protein 15 H, Urine Glucose (UA) Normal, Urine Ketones 15 H, Urine Occult Blood 10 H, Urine Nitrite Negative, Urine Bilirubin Negative, Urine Urobilinogen Normal, Ur Leukocyte Esterase 500 H, Urine RBC 0-5 SEEN, Urine WBC >100 SEEN, Ur Squamous Epith Cells 0-5 SEEN, Urine Bacteria RARE, Urine Mucus 0 SEEN 11/17/21 09:50: Troponin I High Sens 482 H* Micro: Pending Radiography Diagnostic Testing: Radiology Impression Chest X-Ray 11/16/21 23:05 IMPRESSION: No acute abnormal cardiopulmonary finding. Electronically Signed: Anand Deshpande MD at 23:34 EDT , Echocardiogram 11/17/21 07:04 Interpretation Summary The study was technically difficult. Left ventricular systolic function is normal. The estimated ejection fraction is 65 %. Mild concentric left ventricular hypertrophy. Mild diffuse mitral valve thickening. Mild focal mitral valve calcification of the anterior leaflet. Moderate mitral valve prolapse. Moderate (2+) mitral valve insufficiency. Mild to moderate (1-2+) tricuspid valve insufficiency. Moderate focal aortic valve calcification. Mild aortic stenosis. Epicardial fat. Right ventricular systolic pressure estimated to be 29 mmHg. No evidence for diastolic dysfunction. Ordering Physician: Sindi Tarango Referring Physician: Amos Fulton M.D. Performed By: Alka Manriquez RDCS Rhythm Strip Rhythm Strip: Sinus Tach Rate: 104 Ectopy: None Physical Exam Const alert, oriented x3, no apparent distress, healthy appearing and well nourished General Appearance: cooperative, comfortable and other On room air, with SPO2 in the 90s. Oriented x3 HEENT hearing grossly normal bilaterally and moist oral mucous membranes Head and Scalp: normal to inspection Face and Sinus: normal facial exam; Negative for sinus tenderness Nose: external nose normal and no nasal discharge Mouth: oral and palatal mucosa normal Teeth and Gingiva: fair dentition Eyes EOMs intact bilaterally, conjunctivae normal and no scleral icterus Eyelid: eyelids normal Conjunctiva: conjunctiva normal Sclera: sclera normal Neck no lymphadenopathy, no JVD, thyroid normal, No nodes and no carotid bruits General: trachea midline Chest inspection of chest normal Chest Narrative: Breathing unlabored, full excursion, symmetric, with no wheezes rales or rhonchi. A few crackles were heard at the lung bases that improved with deep breathing. Resp Effort and Inspection: able to speak in complete sentences; Negative for uses accessory muscles Cardio regular rate, regular rhythm, S1 normal heart sound, S2 normal heart sound, no murmurs, no rub and no gallops GI GI Narrative: Abdomen is soft, nontender, nondistended, with normoactive bowel sounds and no organomegaly or mass Narrative: Grossly normal female genitalia Back/Spine Back/Spine Narrative: Patient able to sit up with minimal assistance for the exam. No obvious tenderness Extremity normal to inspection Extremity Narrative: No edema cyanosis lesions or clubbing. Skin no rashes or lesions noted, skin turgor normal, no jaundice, no petechiae and no mottling Lesions: no lesions Rashes: no rashes Hair: normal Neuro CN's II-XII intact bilaterally, moves all extremities and no focal motor deficits Psych mental status grossly normal, thought process normal, affect normal, speech normal and activity/motor behavior normal Appearance: grossly normal and appropriate Attitude: calm and engaged Activity / Motor Behavior: appropriate eye contact Speech: normal speech Mood & Affect: euthymic mood Memory / Cognition: memory grossly intact Insight: insight good Judgement: judgement good Sepsis Attestation Sepsis Attestation: Agree w/Sepsis (I do not agree with a diagnosis of sepsis, this patient apparently had hypotension due to adrenal insufficiency. Her dose of hydrocortisone will be adjusted as an outpatient by her office system analyst after boosting her level slightly here.) Date exam was performed: 11/17/21 Charges/Coding Addendum Addendum: Care time spent with patient at bedside, review of documentation, lab results, radiology and other test results, discussion with colleagues and ancillary staff, clinical management of patient, and updating family if applicable, was 45 minutes. This time does not include any procedures, if performed. Critical care codes for today are below, 89087. Visit Charges Office Visits / Consults: [id number] OP Consult L4
[2021-11-17] MEDS: FLU VACC QS2022-23(6MOS UP)/PF 60 MCG/0.5 ML SYRINGE IM (16:40)
[2021-11-17 16:42] LABS: Partial Thromboplast Time > 200.0 Seconds (24.1-36.2)
[2021-11-17] MEDS: Atorvastatin Calcium 10 MG Tablet PO (20:28)
[2021-11-18] VITALS: PULSE 72
[2021-11-18] MEDS: Lactated Ringers 1,000 ML 125 ML IV (00:08)
[2021-11-18 00:29] LABS: Partial Thromboplast Time 87.8 Seconds (24.1-36.2)
[2021-11-18 02:03] VITALS: BP 123/98; PULSE 81; RESP 16; TEMP 36.4; O2SAT 96
[2021-11-18 04:00] VITALS: PULSE 75
[2021-11-18 05:00] VITALS: BP 123/98; PULSE 81; RESP 16; TEMP 36.4; O2SAT 96
[2021-11-18] MEDS: Hydrocortisone Sod Succinate 100 MG/2 ML Vial IV (05:09)
[2021-11-18 06:20] LABS: Absolute Lymphocyte Count 1.02 X10^3/uL (0.83-4.51); Absolute Neutrophil Count 8.5 X10^3/uL (2.0-7.7); Basophil# 0.02 X10^3/uL; Basophil% 0.2 % (0-1); Hematocrit 37.6 % (37-47); Hemoglobin 12.4 g/dL (12.0-15.0); Lymphocyte # 1.02 X10^3/ul (0.83-4.51); Lymphocyte % 9.9 % (19-41); Mean Corpuscular Hgb 29.9 pg (27.0-32.0); Mean Corpuscular Volume 90.6 fL (81-99); Mean Platelet Vol. 11.6 fl (6.2-12.0); Monocyte# 0.74 X10^3/uL; Monocyte% 7.2 % (0-10); NRBC Flagged by Analyzer 0 % (0-5); Neutrophil # 8.48 X10^3/uL (2.7-7.7); Neutrophil % 82.3 % (47-70); Platelet Count 190 K/mm3 (150-450); RBC Distribution Width CV 14.6 % (11.6-14.6); RBC Distribution Width SD 48.8 fl (35.1-43.9); Red Blood Count 4.15 M/mm3 (4.2-5.4); White Blood Count 10.3 K/mm3 (4.4-11.0)
[2021-11-18 06:28] LABS: International Normalized Ratio 2.2
[2021-11-18 06:36] LABS: Anion Gap 11 (5-15); BUN 44 mg/dL (7-18); BUN/Creat Ratio 26.5 RATIO (10-20); Calcium,Total 7.9 mg/dL (8.5-10.1); Chloride 113 mmol/L (98-107); Creatinine, Serum 1.66 mg/dL (0.55-1.02); EST Glomerular Filtration Rate 32 mL/min (>60); Est Glom Filt Rate - Afr Amer 38 mL/min (>60); Estimated Creatinine Clearance 22.09 ml/min; Glucose 157 mg/dL (74-106); Sodium Level 142 mmol/L (136-145)
[2021-11-18 08:00] VITALS: BP 112/77; PULSE 72; PULSE 77; RESP 18; TEMP 36.8; O2SAT 98
[2021-11-18] MEDS: Midodrine HCl 5 MG Tablet 10 MG PO (09:25)
[2021-11-18] MEDS: Cholecalciferol (VIT D3) 25 MCG TABLET (1,000 UNITS) PO (09:25)
[2021-11-18] MEDS: Hydrocortisone 10 MG Tablet 30 MG PO (09:27)
--- NOTE | 2021-11-18 10:54 | DS.PCM_ITS ---
Providers Date of Admission: 11/17/21 Date of Discharge: 11/18/21 Primary Care Physician: Dr. Amos Fulton MD Consultations 11/17/21 04:57 Consult: [employer] / Pulmonary Medicine Routine Consulting Provider: Pulmonary Medicine latasha Clifton Reason for Consult: hypotension EMERGENT Consult: No MD Notified: Yes Date Notified: 11/17/21 Time Notified: 00:49 Method of Notification: Text Reason For Visit: HYPOTENSION, ANGELA Diagnosis Discharge Diagnosis (1) Hypotension: Status: Acute Code(s): I95.9 - Hypotension, unspecified (2) Elevated troponin: Status: Acute Code(s): R77.8 - Other specified abnormalities of plasma proteins (3) ANGELA (acute kidney injury): Status: Acute Code(s): N17.9 - Acute kidney failure, unspecified (4) 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, stage 3: Status: Chronic Code(s): N18.3 - 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, stage 3 (moderate) (5) senior living (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: Status: Chronic Code(s): Z79.01 - senior living (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 Medications at Discharge Home Medications nitroglycerin 0.4 mg sublingual tablet 0.4 mg sublingual Q5-15M PRN Cardiac/Chest Pain 05/21/18 acetaminophen 500 mg tablet 1,000 mg PO Q6H PRN Pain Score 1-10 04/08/20 hydrocortisone 10 mg tablet 10 mg PO DAILY@1800 #30 tabs 04/08/20 hydrocortisone 10 mg tablet 20 mg PO DAILY@0600 #60 tabs 04/08/20 simvastatin 20 mg tablet 20 mg PO QHS 07/17/20 losartan 50 mg tablet 50 mg PO DAILY 01/20/21 cholecalciferol (vitamin D3) 25 mcg (1,000 unit) capsule 25 mcg PO DAILY 04/12/21 amlodipine 2.5 mg tablet (Norvasc) 2.5 mg PO DAILY #90 tabs 07/12/21 warfarin 2.5 mg tablet 2.5 mg PO DAILY@1700 #120 tabs 07/12/21 levocetirizine 5 mg tablet 5 mg PO DAILY 11/16/21 Hospital Course Operations None Procedures 2-D Echocardiogram and EKG Summary of Care Provided Minutes Spent on Discharge: 38 Hospital Course: Mrs. Allen is a 76-year-old white female presents emergency department was coming hospital on 11/17/2021 complaining of lightheadedness. She has a known past medical history of Grady's disease and had been compliant with her medications. She had a recent COVID infection and was recovering for this. She was complaining of some increasing fatigue since she been infected however it was worse on the day of presentation. She also reported some malaise and this week equilibrium. She had some lightheadedness for approximately 4 days prior to presentation. Given her persistence of her symptoms, her daughter checked her blood pressures and noted her systolic blood pressure was in the low 80s so they brought her to the emergency department. She typically is on antihypertensives at baseline. Vitals on presentation showed a temperature of 97.1, heart rate 95-113, respiratory rate was 15-24, blood pressure was 61-79 systolic and 49-53 diastolic, oxygen saturations were 97% on room air. Her CBC showed a white count of 12.3 hemoglobin of 16.4 (baseline 12-14), platelets were normal and she had no left shift. Her BMP showed normal electrolytes however her serum creatinine and BUN were elevated. Initial BUN was 38 and serum creatinine was 2.69 (baseline serum creatinine appears to be between 1.5 and 1.7.). Her initial troponin was 619 but she had no chest pain or EKG abnormalities on presentation. Her cardiac enzymes were cycled and trended down. An echocardiogram was obtained to assess wall motion and showed an EF of 65% with mild concentric LVH, diffuse mitral valve thickening, moderate mitral valve insufficiency with moderate mitral valve prolapse, mild aortic stenosis, and a right ventricular systolic pressure of 29 mmHg with no diastolic dysfunction. Patient remained chest pain-free and without EKG abnormalities throughout her hospitalization. She was treated with aggressive hydration and given 3 L bolus. We also gave her stress dose steroids and cultures were obtained however she was not treated with antibiotics as the suspicion for infectious hypotension was low. Blood cultures were negative at 24 hours at the time of discharge and her urine culture showed no acute infection. She was tolerating p.o. intake without difficulty and blood pressures improved by the morning of admission and were improving very rapidly after fluids were administrated. Blood pressures at the time of discharge were in the 1 20-1 30 range with diastolics anywhere from 70 -90's. Given the patient was still not having any hypertension we held her antihypertensives which included amlodipine 2.5 mg daily and losartan 50 mg daily upon discharge. I requested that she check her blood pressures 2-3 times a day at home and when she was consistently having blood pressures greater than 140 to reinitiate both antihypertensives. Her INR was subtherapeutic at the time of admission however by the time of discharge her INR was 2.2. Given her history of clotting and subtherapeutic INR on admission she was treated with a heparin drip until INR was therapeutic. I suspect that her dehydration and hypotension was related to persistent use of antihypertensives in the setting of dehydration related to her recent COVID-19 infection as the patient indicated she was still fatigued and sleeping a lot and not taking in as much p.o. intake. She was discharged home in stable condition on 11/18/2021. I requested she follow-up with her primary care physician within the next 2 weeks. She states she has follow ups with her client coordinator, software tools developer, and health teacher in the next upcoming week or 2. I encouraged her to keep these appointments. Discharge diagnoses: Acute hypotension-multifactorial Subtherapeutic INR NSTEMI type II Mild aortic stenosis Moderate mitral valve insufficiency ANGELA on CKD stage IIIb secondary to dehydration Kyler's disease History of DVT/PE History of renal cancer Hypertension Osteopenia Weight / BMI Weight Weight: 63.5 kg Body Mass Index (BMI) 25.4 ABG / Lab / Microbiology Data Result Diagrams: 11/18/21 06:17 11/18/21 06:17 Laboratory: Laboratory Results - last 24 hr 11/16/21 22:45: Diff Path Review Reviewed 11/17/21 07:00: Urine Color Yellow, Urine Clarity Sl. Cloudy, Urine pH 5.0, Ur Specific [place] 1.015, Urine Protein 15 H, Urine Glucose (UA) Normal, Urine Ketones 15 H, Urine Occult Blood 10 H, Urine Nitrite Negative, Urine Bilirubin Negative, Urine Urobilinogen Normal, Ur Leukocyte Esterase 500 H, Urine RBC 0-5 SEEN, Urine WBC >100 SEEN, Ur Squamous Epith Cells 0-5 SEEN, Urine Bacteria RARE, Urine Mucus 0 SEEN 11/17/21 15:45: APTT > 200.0 H* 11/18/21 00:10: APTT 87.8 H 11/18/21 06:17: PT 24.0 H, INR 2.2 11/18/21 06:17: Sodium 142, Potassium 4.0, Chloride 113 H, Carbon Dioxide 18.0 L , Anion Gap 11, BUN 44 H, Creatinine 1.66 H, Estim Creat Clear Calc 22.09, Est GFR (MDRD) Af Amer 38 L, Est GFR (MDRD) Non-Af 32 L, BUN/Creatinine Ratio 26.5 H , Glucose 157 H, Calcium 7.9 L 11/18/21 06:17: WBC 10.3, RBC 4.15 L, Hgb 12.4, Hct 37.6, MCV 90.6, MCH 29.9, MCHC 33.0, RDW Std Deviation 48.8 H, RDW Coeff of Slava 14.6, Plt Count 190, MPV 11.6, Immature Gran % (Auto) 0.400, Neut % (Auto) 82.3 H, Lymph % (Auto) 9.9 L, [place] % (Auto) 7.2, Eos % (Auto) 0.0, Baso % (Auto) 0.2, Absolute Neuts (auto) 8.5 H, Absolute Lymphs (auto) 1.02, Nucleated RBC % 0 11/18/21 06:17: APTT 80.0 H Microbiology: Microbiology 11/16/21 07:00 Urine, Clean Catch Urine Culture - Final Mixed Gram Positive Organisms D/C Instructions Discharge Diet: Low fat / Low cholesterol Discharge Activity: Return to Normal Activity Meaningful Use Info Meaningful Use Diagnoses (Choose all that apply): None applicable Discharge Plan Admission Admit Date/Time: 11/17/21 00:17 Primary Reason for Your Visit: Lightheadedness Attending Provider: Sindi Tarango Primary Care Provider: Amos Fulton Consulting Providers: Jace Lantigua ; Memo Hunter ; Shiva Wood ; Sukhdeep Gaming ; Logan Tripathi ; Diana Palencia SUBSTANCE ABUSE SPECIALIST Instructions Additional Instructions / Restrictions: 1. Follow-up with Dr. Strickland as scheduled 2. Hold antihypertensive medications until systolic blood pressure (top number) is consistently greater than 140 Discharge Orders/Prescriptions Prescriptions: Continued nitroglycerin 0.4 mg tablet, sublingual 0.4 mg SUBLINGUAL Q5-15M PRN (Reason: Cardiac/Chest Pain) simvastatin 20 mg tablet 20 mg PO QHS cholecalciferol (vitamin D3) 25 mcg (1,000 unit) capsule 25 mcg PO DAILY warfarin 2.5 mg tablet 2.5 mg PO DAILY@1700 Qty: 120 3RF Protocol: Dose Management Condition: Monday Dose/Route: 5 mg Instruction: 2 x 2.5 mg tablets Condition: Monday Dose/Route: 2.5 mg Instruction: 1 x 2.5 mg tablet Condition: Monday Dose/Route: 2.5 mg Instruction: 1 x 2.5 mg tablet Condition: Monday Dose/Route: 2.5 mg Instruction: 1 x 2.5 mg tablet Condition: Dose/Route: 2.5 mg Instruction: 1 x 2.5 mg tablet Condition: Monday Dose/Route: 2.5 mg Instruction: 1 x 2.5 mg tablet Condition: Monday Dose/Route: 5 mg Instruction: 2 x 2.5 mg tablets Protocol Text: Adjustment Start Date: Monday11/02/21 INR Value: 2.6 INR Date: 11/02/21 Recheck Date: 11/30/21 Rx Instructions: daily or as directed acetaminophen 500 MG tablet 1,000 mg PO Q6H PRN (Reason: Pain Score 1-10) 0RF hydrocortisone 10 MG tablet 10 mg PO DAILY@1800 Qty: 30 0RF Rx Instructions: inflammation hydrocortisone 10 MG tablet 20 mg PO DAILY@0600 Qty: 60 0RF levocetirizine 5 mg tablet 5 mg PO DAILY Label Comments: TAKE 1 TABLET BY MOUTH ONCE DAILY Held losartan 50 mg tablet 50 mg PO DAILY Hold Instructions: Until SBP consistently > 140 amlodipine [Norvasc] 2.5 mg tablet 2.5 mg PO DAILY Qty: 90 3RF Hold Instructions: Until SBP > 140 Referrals / Follow Up: Aminata Tarango DO [Med Staff - Consulting] - See Referral Note (As scheduled) Jordan Marte MD [Med Staff - Active Staff] - See Referral Note (As scheduled) Amos Fulton MD [Primary Care Provider] - Within 2 Weeks Disposition Disposition (needs filled in before D/C Order can be placed): Home, Self Care Charges/Coding Visit Charges Inpatient E&M: 06537 Disch Hosp
--- NOTE | 2021-11-18 11:48 | CASEMGMT ---
RN CM in to discuss discharge needs with patient. Therapy notes reviewed, patient walking independently with therapy, no therapy recommended at discharge. Patient denied needs at discharge.
== END 2021-11-18 12:45 | disposition home or self-care (01) | DRG 643 ==
LOC: ED 23:40 → ICU 11-17 00:43
PROVIDERS: Internal Medicine; Internal Medicine Critical Care Medicine; Nurse Practitioner Family; Admitting Provider Hospitalist; Emergency Provider Emergency Medicine; PCP Internal Medicine; Visit Provider Internal Medicine
DX: E27.1 Primary adrenocortical insufficiency (principal); I21.A1 Myocardial infarction type 2; N17.9 Acute kidney failure, unspecified; N18.32 Chronic kidney disease, stage 3b; I95.2 Hypotension due to drugs; E86.0 Dehydration; I08.0 Rheumatic disorders of both mitral and aortic valves; I12.9 Hypertensive chronic kidney disease with stage 1 through stage 4 chronic kidney disease, or unspecified chronic kidney disease; E78.5 Hyperlipidemia, unspecified; I25.2 Old myocardial infarction; T46.5X5A Adverse effect of other antihypertensive drugs, initial encounter; T46.1X5A Adverse effect of calcium-channel blockers, initial encounter; M85.80 Other specified disorders of bone density and structure, unspecified site; Z90.5 Acquired absence of kidney; Z79.01 Long term (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; Z79.52 Long term (current) use of systemic steroids; Z79.899 Other long term (current) drug therapy; Z86.711 Personal history of pulmonary embolism; Z86.718 Personal history of other venous thrombosis and embolism; Z86.16 Personal history of COVID-19; Z23 Encounter for immunization
CPT/HCPCS: 71045; 80048; 80053; 81001; 83605; 84484; 85025; 85610; 85730; 87040; 87086; 87088; 93005; 93306; 97161; 97802; 99285; G0008; J7030; J7040; J7120; 90686; A4216

== ENCOUNTER → 2021-11-24 | Outpatient (CLI) | payer MEDICARE, SELFPAY ==
[2021-11-24 14:22] LABS: Albumin, Serum 3.4 g/dL (3.2-5.0); BUN 29 mg/dL (7-18); BUN/Creat Ratio 18.7 RATIO (10-20); Calcium,Total 9.3 mg/dL (8.5-10.1); Chloride 111 mmol/L (98-107); Creatinine, Serum 1.55 mg/dL (0.55-1.02); EST Glomerular Filtration Rate 34 mL/min (>60); Est Glom Filt Rate - Afr Amer 42 mL/min (>60); Glucose 80 mg/dL (74-106); Phosphorus 2.3 mg/dL (2.5-4.9); Potassium 4.5 mmol/L (3.5-5.1); Sodium Level 141 mmol/L (136-145)
== END | disposition home or self-care (01) ==
LOC: POLAB3 10:38
PROVIDERS: PCP Internal Medicine; Visit Provider Internal Medicine Nephrology
DX: N17.9 Acute kidney failure, unspecified (principal); R39.14 Feeling of incomplete bladder emptying
CPT/HCPCS: 36415; 80069; 87077; 87086; 87088; 87186

== ENCOUNTER → 2021-11-26 | Outpatient (CLI) | payer MEDICARE, SELFPAY ==
[2021-11-26 13:15] VITALS: BP 144/88; PULSE 79; RESP 16; TEMP 36.6; O2SAT 98
[2021-11-26] MEDS: DENOSUMAB 60 MG/ML SC (13:18)
== END | disposition home or self-care (01) ==
LOC: MEDOUTP 12:50
PROVIDERS: PCP Internal Medicine; Referring Provider Internal Medicine Endocrinology, Diabetes & Metabolism; Visit Provider Internal Medicine Endocrinology, Diabetes & Metabolism
DX: M81.0 Age-related osteoporosis without current pathological fracture (principal)
CPT/HCPCS: 96372; J0897

== ENCOUNTER 2021-12-28 13:54 | Outpatient (RCR) | payer MEDICARE, SELFPAY ==
[2021-12-28 14:05] LABS: INR Fingerstick 2.3; Prothrombin Time Fingerstick 26.4 SEC (11.7-14.9)
== END 2022-01-19 18:00 | disposition home or self-care (01) ==
LOC: LAB 13:54
PROVIDERS: PCP Internal Medicine; Visit Provider Internal Medicine Cardiovascular Disease
DX: I82.409 Acute embolism and thrombosis of unspecified deep veins of unspecified lower extremity (principal); Z86.711 Personal history of pulmonary embolism; Z79.01 Long term (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
CPT/HCPCS: 36416; 85610

== ENCOUNTER → 2022-01-25 | Outpatient (CLI) | payer MEDICARE, SELFPAY ==
[2022-01-25 13:32] LABS: Prothrombin Time (Protime)PT. 92.3 SECONDS (11.7-14.9)
[2022-01-25 13:37] LABS: International Normalized Ratio 11.9
[2022-01-25 13:48] LABS: Anion Gap 7 (5-15); BUN 28 mg/dL (7-18); BUN/Creat Ratio 15.2 RATIO (10-20); Calcium,Total 9.3 mg/dL (8.5-10.1); Chloride 105 mmol/L (98-107); Creatinine, Serum 1.84 mg/dL (0.55-1.02); EST Glomerular Filtration Rate 28 mL/min (>60); Est Glom Filt Rate - Afr Amer 34 mL/min (>60); Glucose 104 mg/dL (74-106); Potassium 4.1 mmol/L (3.5-5.1); Sodium Level 138 mmol/L (136-145)
== END | disposition home or self-care (01) ==
PROVIDERS: Internal Medicine Cardiovascular Disease; Internal Medicine Endocrinology, Diabetes & Metabolism; PCP Internal Medicine; Visit Provider Physician Assistant Medical
DX: I10 Essential (primary) hypertension (principal); I82.409 Acute embolism and thrombosis of unspecified deep veins of unspecified lower extremity; Z86.711 Personal history of pulmonary embolism; Z79.01 Long term (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; E55.9 Vitamin D deficiency, unspecified
CPT/HCPCS: 36415; 80048; 82306; 85610

== ENCOUNTER 2022-02-15 14:56 | Outpatient (RCR) | payer MEDICARE, SELFPAY ==
[2022-01-27 14:11] LABS: INR Fingerstick 1.7; Prothrombin Time Fingerstick 20.8 SEC (11.7-14.9)
[2022-02-03 13:26] LABS: INR Fingerstick 1.6; Prothrombin Time Fingerstick 19.6 SEC (11.7-14.9)
== END 2022-02-15 18:00 | disposition home or self-care (01) ==
LOC: LAB 14:56
PROVIDERS: PCP Internal Medicine; Visit Provider Internal Medicine Cardiovascular Disease
DX: I82.409 Acute embolism and thrombosis of unspecified deep veins of unspecified lower extremity (principal); Z79.01 Long term (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; Z86.711 Personal history of pulmonary embolism
CPT/HCPCS: 36416; 85610

== ENCOUNTER 2022-03-10 12:29 | Outpatient (RCR) | payer MEDICARE, SELFPAY ==
[2022-02-24 15:11] LABS: INR Fingerstick 1.6; Prothrombin Time Fingerstick 19.8 SEC (11.7-14.9)
[2022-03-10 12:40] LABS: INR Fingerstick 3.3; Prothrombin Time Fingerstick 37.6 SEC (11.7-14.9)
== END 2022-03-10 15:00 | disposition home or self-care (01) ==
LOC: LAB 12:29
PROVIDERS: PCP Internal Medicine; Referring Provider Internal Medicine Cardiovascular Disease; Visit Provider Internal Medicine Cardiovascular Disease
DX: Z79.01 Long term (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 (principal); Z86.711 Personal history of pulmonary embolism
CPT/HCPCS: 36416; 85610

== ENCOUNTER 2022-03-25 12:50 | Outpatient (RCR) | payer MEDICARE, SELFPAY ==
[2022-03-28 15:32] LABS: INR Fingerstick 2.4; Prothrombin Time Fingerstick 28.3 SEC (11.7-14.9)
== END 2022-03-25 18:00 | disposition home or self-care (01) ==
LOC: LAB 12:50
PROVIDERS: PCP Internal Medicine; Referring Provider Internal Medicine Cardiovascular Disease; Visit Provider Internal Medicine Cardiovascular Disease
DX: Z79.01 Long term (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 (principal); Z86.711 Personal history of pulmonary embolism
CPT/HCPCS: 36416; 85610

== ENCOUNTER 2022-05-09 10:44 | Outpatient (RCR) | payer MEDICARE, SELFPAY ==
[2022-04-22 10:55] LABS: INR Fingerstick 3.3; Prothrombin Time Fingerstick 37.1 SEC (11.7-14.9)
[2022-05-09 10:50] LABS: INR Fingerstick 2.4; Prothrombin Time Fingerstick 25.9 SEC (11.7-14.9)
== END 2022-05-20 23:00 | disposition home or self-care (01) ==
LOC: LAB 10:44
PROVIDERS: PCP Internal Medicine; Referring Provider Internal Medicine Cardiovascular Disease; Visit Provider Internal Medicine Cardiovascular Disease
DX: Z79.01 Long term (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 (principal); Z86.711 Personal history of pulmonary embolism
CPT/HCPCS: 36416; 85610

== ENCOUNTER → 2022-05-27 | Outpatient (CLI) | payer MEDICARE, SELFPAY ==
[2022-05-27 12:58] VITALS: BP 152/93; PULSE 78; RESP 16; TEMP 35.8; O2SAT 99
[2022-05-27] MEDS: DENOSUMAB 60 MG/ML SC (12:59)
== END | disposition home or self-care (01) ==
LOC: MEDOUTP 12:51
PROVIDERS: PCP Internal Medicine; Referring Provider Internal Medicine Endocrinology, Diabetes & Metabolism; Visit Provider Internal Medicine Endocrinology, Diabetes & Metabolism
DX: M81.0 Age-related osteoporosis without current pathological fracture (principal)
CPT/HCPCS: 96372; J0897

== ENCOUNTER → 2022-05-31 | Outpatient (CLI) | payer MEDICARE, SELFPAY ==
[2022-05-31 15:38] LABS: Albumin, Serum 3.5 g/dL (3.2-5.0); BUN 32 mg/dL (7-18); BUN/Creat Ratio 14.5 RATIO (10-20); Calcium,Total 9.2 mg/dL (8.5-10.1); Chloride 109 mmol/L (98-107); EST Glomerular Filtration Rate 23 mL/min (>60); Est Glom Filt Rate - Afr Amer 28 mL/min (>60); Glucose 98 mg/dL (74-106); Phosphorus 2.9 mg/dL (2.5-4.9); Potassium 3.9 mmol/L (3.5-5.1); Sodium Level 139 mmol/L (136-145)
== END | disposition home or self-care (01) ==
LOC: LAB 14:08
PROVIDERS: PCP Internal Medicine; Referring Provider Internal Medicine Nephrology; Visit Provider Internal Medicine Nephrology
DX: N18.32 Chronic kidney disease, stage 3b (principal)
CPT/HCPCS: 36415; 80069

== ENCOUNTER → 2022-06-07 | Outpatient (CLI) | payer MEDICARE, SELFPAY ==
[2022-06-07 13:40] LABS: Albumin, Serum 3.7 g/dL (3.2-5.0); BUN 26 mg/dL (7-18); BUN/Creat Ratio 16.1 RATIO (10-20); Calcium,Total 8.7 mg/dL (8.5-10.1); Chloride 109 mmol/L (98-107); Creatinine, Serum 1.61 mg/dL (0.55-1.02); EST Glomerular Filtration Rate 33 mL/min (>60); Est Glom Filt Rate - Afr Amer 40 mL/min (>60); Glucose 82 mg/dL (74-106); Phosphorus 1.5 mg/dL (2.5-4.9); Potassium 4.1 mmol/L (3.5-5.1); Sodium Level 136 mmol/L (136-145)
== END | disposition home or self-care (01) ==
LOC: POLAB3 10:54
PROVIDERS: PCP Internal Medicine; Visit Provider Internal Medicine Nephrology
DX: N17.9 Acute kidney failure, unspecified (principal)
CPT/HCPCS: 36415; 80069

== ENCOUNTER 2022-07-08 10:13 | Outpatient (RCR) | payer MEDICARE, SELFPAY ==
[2022-07-11 08:20] LABS: INR Fingerstick 2.1; Prothrombin Time Fingerstick 23.5 SEC (11.7-14.9)
== END 2022-07-20 18:00 | disposition home or self-care (01) ==
LOC: LAB 10:13
PROVIDERS: PCP Internal Medicine; Referring Provider Internal Medicine Cardiovascular Disease; Visit Provider Physician Assistant Medical
DX: Z86.711 Personal history of pulmonary embolism; Z79.01 Long term (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
CPT/HCPCS: 36416; 85610

== ENCOUNTER → 2022-07-26 | Outpatient (CLI) | payer MEDICARE, SELFPAY ==
[2022-07-26 17:22] LABS: Albumin, Serum 3.8 g/dL (3.2-5.0); BUN 39 mg/dL (7-18); BUN/Creat Ratio 21.3 RATIO (10-20); Calcium,Total 9.3 mg/dL (8.5-10.1); Chloride 107 mmol/L (98-107); Creatinine, Serum 1.83 mg/dL (0.55-1.02); EST Glomerular Filtration Rate 28 mL/min (>60); Est Glom Filt Rate - Afr Amer 34 mL/min (>60); Glucose 80 mg/dL (74-106); Phosphorus 2.6 mg/dL (2.5-4.9); Potassium 3.9 mmol/L (3.5-5.1); Sodium Level 139 mmol/L (136-145)
== END | disposition home or self-care (01) ==
LOC: LAB 15:05
PROVIDERS: PCP Internal Medicine; Visit Provider Internal Medicine Nephrology
DX: N18.32 Chronic kidney disease, stage 3b (principal)
CPT/HCPCS: 36415; 80069

== ENCOUNTER 2022-08-11 11:12 | Outpatient (RCR) | payer MEDICARE, SELFPAY ==
[2022-08-11 12:08] LABS: International Normalized Ratio 2.6; Prothrombin Time (Protime)PT. 28.3 SECONDS (11.7-14.9)
== END 2022-08-11 18:00 | disposition home or self-care (01) ==
LOC: LAB 11:12
PROVIDERS: PCP Internal Medicine; Referring Provider Internal Medicine Cardiovascular Disease; Visit Provider Physician Assistant Medical
DX: Z86.711 Personal history of pulmonary embolism
CPT/HCPCS: 36415; 85610

== ENCOUNTER 2022-09-12 14:28 | Outpatient (RCR) | payer MEDICARE, SELFPAY ==
[2022-09-12 14:56] LABS: INR Fingerstick 2.4; Prothrombin Time Fingerstick 25.7 SEC (11.7-14.9)
== END 2022-09-19 18:00 | disposition home or self-care (01) ==
LOC: LAB 14:28
PROVIDERS: PCP Internal Medicine; Referring Provider Physician Assistant Medical; Visit Provider Physician Assistant Medical
DX: Z79.01 Long term (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 (principal); Z86.711 Personal history of pulmonary embolism
CPT/HCPCS: 36416; 85610

== ENCOUNTER 2022-10-11 13:14 | Outpatient (RCR) | payer MEDICARE, SELFPAY ==
[2022-10-11 13:22] LABS: INR Fingerstick 3.2; Prothrombin Time Fingerstick 34.6 SEC (11.7-14.9)
== END 2022-10-11 18:00 | disposition home or self-care (01) ==
LOC: LAB 13:14
PROVIDERS: PCP Internal Medicine; Referring Provider Physician Assistant Medical; Visit Provider Physician Assistant Medical
DX: Z86.711 Personal history of pulmonary embolism
CPT/HCPCS: 36416; 85610

== ENCOUNTER 2022-10-26 15:05 | Outpatient (RCR) | payer MEDICARE, SELFPAY ==
[2022-10-31 09:12] LABS: INR Fingerstick 2.4; Prothrombin Time Fingerstick 25.8 SEC (11.7-14.9)
== END 2022-10-26 18:00 | disposition home or self-care (01) ==
LOC: LAB 15:05
PROVIDERS: PCP Internal Medicine; Referring Provider Physician Assistant Medical; Visit Provider Physician Assistant Medical
DX: Z79.01 Long term (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 (principal); Z86.711 Personal history of pulmonary embolism; I82.409 Acute embolism and thrombosis of unspecified deep veins of unspecified lower extremity
CPT/HCPCS: 36416; 85610

== ENCOUNTER 2022-11-25 12:36 | Outpatient (CLI) | payer MEDICARE, SELFPAY ==
[2022-11-25 13:20] VITALS: BP 131/91; PULSE 75; RESP 16; TEMP 36.3; O2SAT 99
[2022-11-25] MEDS: DENOSUMAB 60 MG/ML SC (13:23)
== END 2022-11-25 12:37 | disposition home or self-care (01) ==
LOC: MEDOUTP 12:36
PROVIDERS: PCP Internal Medicine; Referring Provider Internal Medicine Endocrinology, Diabetes & Metabolism; Visit Provider Internal Medicine Endocrinology, Diabetes & Metabolism
DX: M81.0 Age-related osteoporosis without current pathological fracture (principal)
CPT/HCPCS: 96372; J0897

== ENCOUNTER 2022-12-08 12:24 | Outpatient (RCR) | payer MEDICARE, SELFPAY ==
[2022-11-24 15:33] LABS: International Normalized Ratio 3.5
[2022-11-24 15:50] LABS: ALB/GLOB Ratio 1.1 RATIO (0.9-2.4); AST(SGOT) 28 U/L (15-37); Alanine Aminotransfer ALT/SGPT 38 U/L (13-56); Albumin, Serum 3.8 g/dL (3.2-5.0); Alkaline Phosphatase 103 U/L (45-117); Anion Gap 5 (5-15); BUN 40 mg/dL (7-18); BUN/Creat Ratio 20.9 RATIO (10-20); Calcium,Total 9.3 mg/dL (8.5-10.1); Chloride 113 mmol/L (98-107); Creatinine, Serum 1.91 mg/dL (0.55-1.02); EST Glomerular Filtration Rate 27 mL/min (>60); Est Glom Filt Rate - Afr Amer 33 mL/min (>60); Globulin 3.4 g/dL (2.2-4.2); Glucose 101 mg/dL (74-106); Potassium 4.7 mmol/L (3.5-5.1); Protein, Total 7.2 g/dL (6.4-8.2); Sodium Level 142 mmol/L (136-145); Thyroid Stim Hormone (TSH) 0.42 uIU/mL (0.358-3.74)
[2022-11-24 17:13] LABS: Vitamin D,25 Hydroxy 49.5 ng/mL
[2022-12-08 13:19] LABS: International Normalized Ratio 3.1
[2022-12-08 13:39] LABS: Albumin, Serum 3.5 g/dL (3.2-5.0); BUN 40 mg/dL (7-18); BUN/Creat Ratio 21.9 RATIO (10-20); Calcium,Total 9.4 mg/dL (8.5-10.1); Chloride 107 mmol/L (98-107); Creatinine, Serum 1.83 mg/dL (0.55-1.02); EST Glomerular Filtration Rate 28 mL/min (>60); Est Glom Filt Rate - Afr Amer 34 mL/min (>60); Glucose 185 mg/dL (74-106); Phosphorus 2.5 mg/dL (2.5-4.9); Potassium 4.3 mmol/L (3.5-5.1); Sodium Level 140 mmol/L (136-145)
== END 2022-12-08 18:00 | disposition home or self-care (01) ==
LOC: LAB 12:24
PROVIDERS: Internal Medicine Endocrinology, Diabetes & Metabolism; PCP Internal Medicine; Referring Provider Physician Assistant Medical; Visit Provider Physician Assistant Medical
DX: Z79.01 Long term (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 (principal); Z86.711 Personal history of pulmonary embolism; I82.409 Acute embolism and thrombosis of unspecified deep veins of unspecified lower extremity; N18.32 Chronic kidney disease, stage 3b
CPT/HCPCS: 36415; 80053; 80069; 82306; 84443; 85610

== ENCOUNTER 2022-12-23 13:33 | Outpatient (RCR) | payer MEDICARE, SELFPAY ==
[2022-12-23 13:40] LABS: INR Fingerstick 2.8; Prothrombin Time Fingerstick 30.6 SEC (11.7-14.9)
== END 2023-01-19 18:00 | disposition home or self-care (01) ==
LOC: LAB 13:33
PROVIDERS: PCP Internal Medicine; Referring Provider Physician Assistant Medical; Visit Provider Physician Assistant Medical
DX: Z79.01 Long term (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 (principal); Z86.711 Personal history of pulmonary embolism; I82.409 Acute embolism and thrombosis of unspecified deep veins of unspecified lower extremity
CPT/HCPCS: 36416; 85610

== ENCOUNTER 2023-02-08 14:57 | Outpatient (RCR) | payer MEDICARE, SELFPAY ==
[2023-02-08 15:12] LABS: INR Fingerstick 3.1; Prothrombin Time Fingerstick 33.3 SEC (11.7-14.9)
== END 2023-02-19 18:00 | disposition home or self-care (01) ==
LOC: LAB 14:57
PROVIDERS: PCP Internal Medicine; Referring Provider Physician Assistant Medical; Visit Provider Physician Assistant Medical
DX: Z79.01 Long term (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 (principal); Z86.711 Personal history of pulmonary embolism; I82.409 Acute embolism and thrombosis of unspecified deep veins of unspecified lower extremity; Z86.718 Personal history of other venous thrombosis and embolism
CPT/HCPCS: 36416; 85610

== ENCOUNTER 2023-02-24 12:14 | Outpatient (RCR) | payer MEDICARE, SELFPAY ==
[2023-02-24 12:52] LABS: International Normalized Ratio 2.4; Prothrombin Time (Protime)PT. 26.7 SECONDS (11.7-14.9)
== END 2023-02-24 18:00 | disposition home or self-care (01) ==
LOC: LAB 12:14
PROVIDERS: PCP Internal Medicine; Referring Provider Physician Assistant Medical; Visit Provider Physician Assistant Medical
DX: Z79.01 Long term (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 (principal); Z86.711 Personal history of pulmonary embolism; I82.409 Acute embolism and thrombosis of unspecified deep veins of unspecified lower extremity; Z86.718 Personal history of other venous thrombosis and embolism
CPT/HCPCS: 36415; 85610

== ENCOUNTER → 2023-04-04 | Outpatient (CLI) | payer MEDICARE, SELFPAY ==
[2023-04-04 12:57] LABS: Vitamin D,25 Hydroxy 66.6 ng/mL
[2023-04-06 13:08] LABS: Vitamin D 1,25-Dihydroxy 45.7 pg/mL (24.8-81.5)
== END | disposition home or self-care (01) ==
LOC: POLAB3 11:06
PROVIDERS: PCP Internal Medicine; Visit Provider Internal Medicine Nephrology
DX: E83.52 Hypercalcemia (principal)
CPT/HCPCS: 36415; 82306; 82652

== ENCOUNTER → 2023-04-10 | Outpatient (CLI) | payer MEDICARE, SELFPAY ==
--- NOTE | 2023-04-10 13:37 | ECHOD_ITS ---
Version 2 Reason For Study: MURMUR Procedure This was a 2D Doppler, Color Flow transthoracic echocardiogram. Exam performed in department. Left Ventricle Normal LV size. Left ventricular systolic function is normal. The estimated ejection fraction is 65 %. Stage 1 diastolic dysfunction. No regional wall motion abnormalities noted. Right Ventricle Normal RV size. Normal systolic function. Atria Normal left atrium. Normal right atrium. Mitral Valve Bileaflet diffuse mitral valve thickening. Mild mitral valve prolapse. Mild (1+) eccentric mitral valve insufficiency. Tricuspid Valve Normal tricuspid valve. Mild (1+) tricuspid valve insufficiency. Pulmonary artery systolic pressure is 30 mmHg. Aortic Valve Trisinus/trileaflet aortic valve. Pulmonic Valve Normal pulmonic valve. Great Vessels Normal aortic root. The pulmonary artery is normal size. Normal inferior vena cava. Pericardium/Pleural No pericardial effusion. MMode/2D Measurements & Calculations LVIDd: 3.7 cm IVSd: 1.1 cm LVOT diam: 2.0 cm LVIDs: 2.5 cm LVPWd: 1.1 cm LVOT area: 3.2 cm2 RVDd: 3.8 cm FS: 33.4 % Ao root diam: 3.1 cm LAV(MOD-bp): 39.6 ml LVAd ap4: 14.2 cm2 LAV(MOD-bp) Indexed: 24.0 ml/m2 LVLd ap4: 6.2 cm LAV(MOD-sp2): 39.3 ml EDV(MOD-sp4): 26.2 ml LAV(MOD-sp4): 34.2 ml EDV(sp4-el): 27.2 ml LVAs ap4: 7.3 cm2 LVLs ap4: 5.2 cm ESV(MOD-sp4): 8.5 ml ESV(sp4-el): 8.6 ml EF(MOD-sp4): 67.4 % EF(sp4-el): 68.4 % LVAd ap2: 19.0 cm2 SV(MOD-sp4): 17.7 ml SV(MOD-sp2): 27.8 ml LVLd ap2: 6.9 cm EDV(MOD-sp2): 44.9 ml EDV(sp2-el): 44.6 ml LVAs ap2: 11.1 cm2 LVLs ap2: 6.4 cm ESV(MOD-sp2): 17.1 ml ESV(sp2-el): 16.3 ml EF(MOD-sp2): 62.0 % SV(sp4-el): 18.6 ml LA dimension(2D): 4.2 cm LA A4 area: 14.4 cm2 RA A4 area: 16.3 cm2 TAPSE: 1.7 cm Time Measurements MV dec time: 0.14 sec Doppler Measurements & Calculations MV E max henry: 66.3 cm/sec Lat Peak E' Henry: 6.4 cm/sec Med Peak E' Henry: 5.3 cm/sec MV A max henry: 123.0 cm/sec E/E' lat: 10.4 E/E' med: 12.4 MV E/A: 0.54 MV V2 max: 124.5 cm/sec MV P1/2t max henry: 78.6 cm/sec Ao V2 max: 197.0 cm/sec MV max P.2 mmHg MV P1/2t: 51.5 msec Ao max P.5 mmHg MV V2 mean: 61.8 cm/sec Ao V2 mean: 146.7 cm/sec MV mean P.8 mmHg MV dec slope: 446.4 cm/sec2 Ao mean P.3 mmHg MV V2 VTI: 20.6 cm MVA(P1/2t): 4.3 cm2 Ao V2 VTI: 34.9 cm AV (velocity ratio): 0.40 MVA(VTI): 2.2 cm2 OMID(I,D): 1.3 cm2 OMID(V,D): 1.2 cm2 LV V1 max: 75.8 cm/sec SV(LVOT): 44.3 ml PA V2 max: 118.7 cm/sec LV V1 max P.3 mmHg PA V2 mean: 87.9 cm/sec LV V1 mean P.3 mmHg LV V1 mean: 55.0 cm/sec LV V1 VTI: 14.1 cm TR max henry: 255.4 cm/sec TR max P.1 mmHg ECHO/Echo Complete Interpretation Summary Normal LV size. Left ventricular systolic function is normal. The estimated ejection fraction is 65 %. Stage 1 diastolic dysfunction. Mild mitral valve prolapse. Ordering Physician: Ryan Ji Referring Physician: Amos Fulton Performed By: Oksana Perales, COLT, RVT
--- OUTSIDE RECORDS SUMMARY | 2023-04-10 15:30 | XMS RPT_ITS | CCD ---
Author Name Unknown Address [address] [place] [address] Organization [facility] Care Team Providers Care Chemistry Intern Name Role Phone MIHAI, ABEL E Unavailable Unavailable MIHAI, ABEL E Unavailable Unavailable MIHAI, ABEL Unavailable Unavailable MIHAI, ABEL Unavailable Unavailable MIHAI, ABEL Unavailable Unavailable MIHAI ABEL Unavailable Unavailable ARUN CALERO Attending Unavailable ARUN CALERO Admitting Unavailable UNKNOWN, DOC Referring Unavailable Amos Floyd MD Primary Care Provider [phone] Donaldo ZELAYA, Amos Prince Primary Care Provider [phone] Donaldo ZELAYA, Amos Prince Primary Care Provider [phone] AMOS FLOYD Attending Unavailable AMOS FLOYD Primary Care Unavailable AMOS FLOYD Referring Unavailable DONALDO, MAOS Prince Primary Care Unavailable ANITA LOPES Attending Unavailable AMOS FLOYD Primary Care Unavailable TESTGERALDO WARD Referring Unavailable TESTSYLVIA, GERALDO Attending Unavailable AMOS FLOYD Primary Care Unavailable TESTGERALDO WARD Referring Unavailable JACINDA MCCRARY Referring Unavailable DONALDO, AMOS Prince Primary Care Unavailable TESTRAKE, GERALDO Referring Unavailable AMOS FLOYD Primary Care Unavailable TESTSYLVIA, GERALDO Attending Unavailable AMOS FLOYD Primary Care Unavailable TESTSYLVIA, GERALDO Referring Unavailable CHERYL LEONARDO Attending Unavailable DONALDO, AMOS Prince Primary Care Unavailable CHANDNI NORIEGA Referring Unavailable DONALDO, AMOS Prince Primary Care Unavailable DONALDO, AMOS Prince Referring Unavailable KOLE EL Attending Unavailable ROCIO STINSON Attending Unavailable DONALDO, AMOS Prince Primary Care Unavailable AMOS FLOYD Referring Unavailable AMOS FLOYD Attending Unavailable FLOYD, AMOS Prince Primary Care Unavailable FLOYD, AMOS Prince Primary Care Unavailable FLOYD, AMOS Prince Referring Unavailable KOLE EL Attending Unavailable FLOYD, AMOS Prince Referring Unavailable FLOYD, JIE Primary Care Unavailable KOLE EL Attending Unavailable FLOYD, JIE Referring Unavailable FLOYD, JIE Primary Care Unavailable FLOYD, JIE Primary Care Unavailable TESTRAKE, GERALDO Referring Unavailable FLOYD, JIE Primary Care Unavailable FLOYD, JIE Referring Unavailable FLOYD, JIE Attending Unavailable FLOYD, JIE Primary Care Unavailable FLOYD, JIE Referring Unavailable FLOYD, JIE Primary Care Unavailable TESTRAKE, GERALDO Referring Unavailable FLOYD, JIE Primary Care Unavailable TESTRAKE, GERALDO Referring Unavailable FLOYD, JIE Primary Care Unavailable TESTRAKE, GERALDO Referring Unavailable TESTRAKE, GERALDO Attending Unavailable ROCIO STINSON Referring Unavailable FLOYD, AMOS Prince Primary Care Unavailable FLOYD, AMOS Prince Primary Care Unavailable Allergies Allergy Classification Reported Allergen(s) Allergy Type Date of Onset Reaction(s) Facility (20 sources) ciprofloxacin; Translations: [CIPROFLOXACIN] Drug Allergy 0 [facility] Rep[facility] (20 sources) Penicillins; Translations: [PENICILLINS] Propensity to adverse reactions to drug (disorder) 3 [facility] Medications Current Medications Medication Drug Class(es) Dates Sig (Normalized) Sig (Original) ciprofloxacin 500 mg oral tablet (1 source) Quinolone Antimicrobial End: 12-07-2021 ciprofloxacin HCl (CIPRO) 500 mg tablet Take by mouth twice daily. 0 12/07/2021 Active Completed/Discontinued Medications Medication Drug Class(es) Dates Sig (Normalized) Sig (Original) acetaminophen 325 mg oral tablet (20 sources) take 2 tablets by mouth every six hours as needed acetaminophen (TYLENOL) 325 mg tablet Take 650 mg by mouth every 6 hours as needed. 0 Active Problems Active Problems Problem Classification Problem Date Documented Da te Episodic/Chronic Acute and unspecified renal failure (1 source) Acute injury of kidney; Translations: [Acute kidney failure, unspecified] Episodic Acute myocardial infarction (2 sources) Non-ST elevation (NSTEMI) myocardial infarction; Translations: [Non-ST elevation (NSTEMI) myocardial infarction] Onset: 01-17-2017 Chronic Allergic reactions (20 sources) Atopic neurodermatitis; Translations: [Atopic neurodermatitis] Onset: 11-18-2019 11-18-2019 Chronic 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 (20 sources) 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 stage 3B ; Translations: [Stage 3b chronic kidney disease] Onset: 07-29-2020 07-15-2021 Chronic 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 (1 source) 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; Translations: [Stage 3b chronic kidney disease (HCC)] Onset: 07-15-2021 Coronary atherosclerosis and other heart disease (20 sources) Coronary arteriosclerosis; Translations: [Atherosclerotic heart disease of [place] coronary artery without angina pectoris] Onset: 04-25-2009 Chronic Disorders of lipid metabolism (20 sources) Pure hypercholesterolemia ; Translations: [Pure hypercholesterolemia , unspecified] Onset: 02-17-2015 02-17-2015 Chronic Essential hypertension (20 sources) Essential hypertension; Translations: [Essential (primary) hypertension] Onset: 04-14-2020 Chronic Fracture of lower limb (12 sources) Closed fracture of right foot; Translations: [Unspecified fracture of right foot, initial encounter for closed fracture] Onset: 01-18-2023 11-08-2022 Episodic Hypertension with complications and secondary hypertension (20 sources) Hypertensive renal disease; Translations: [Hypertensive chronic kidney disease with stage 1 through stage 4 chronic kidney disease, or unspecified chronic kidney disease] Onset: 07-15-2021 07-15-2021 Chronic Immunizations and screening for infectious disease (5 sources) Vaccination needed; Translations: [Encounter for immunization] Episodic Nonmalignant breast conditions (1 source) Mastodynia; Translations: [Mastodynia] Episodic Other aftercare (1 source) Anticoagulant effect; Translations: [detention (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] Episodic Other circulatory disease (1 source) Low blood pressure; Translations: [Other hypotension] Episodic Other connective tissue disease (1 source) Pain in right foot; Translations: [Pain in right foot] 11-08-2022 Episodic Other endocrine disorders (20 sources) Hypoadrenalism; 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 Other hematologic conditions (1 source) Raised cardiac enzyme or marker; Translations: [Other specified abnormalities of plasma proteins] Episodic Other nervous system disorders (20 sources) Disorder of autonomic nervous system; Translations: [Disorder of the autonomic nervous system, unspecified] Onset: 10-20-2003 02-17-2015 Chronic Other nervous system disorders (4 sources) Abnormal gait; Translations: [Unspecified abnormalities of gait and mobility] Onset: 03-28-2023 03-28-2023 Episodic Other nervous system disorders (1 source) Unspecified abnormalities of gait and mobility; Translations: [Gait abnormality] Onset: 03-28-2023 Episodic Other non-traumatic joint disorders (16 sources) Hip pain; Translations: [Pain in unspecified hip] Onset: 11-01-2022 Episodic Other nutritional; endocrine; and metabolic disorders (20 sources) Hypercalcemia; Translations: [Hypercalcemia] Onset: 03-19-2009 04-22-2020 Chronic Other screening for suspected conditions (not mental disorders or infectious disease) (2 sources) Patient encounter status; Translations: [Encounter for screening mammogram for malignant neoplasm of breast] Episodic Other upper respiratory disease (20 sources) Chronic rhinitis; Translations: [Chronic rhinitis] Onset: 03-20-2014 03-20-2014 Chronic Pathological fracture (5 sources) Pathological fracture due to osteoporosis; Translations: [Age-related osteoporosis with current pathological fracture, unspecified site, subsequent encounter for fracture with routine healing] Onset: 01-19-2023 01-19-2023 Episodic Unclassified (1 source) Unknown / UNK(Unknown) Onset: 01-17-2017 Past or Other Problems Problem Classification Problem Date Documented Da te Episodic/Chronic Other and unspecified benign neoplasm (20 sources) Benign neoplasm of colon; Translations: [Benign neoplasm of colon, unspecified] Onset: 04-26-2005 12-11-2009 Episodic Other bone disease and musculoskeletal deformities (20 sources) Osteopenia; Translations: [Other specified disorders of bone density and structure, unspecified site] Onset: 11-13-2013 03-13-2019 Episodic Other connective tissue disease (20 sources) Muscle weakness; Translations: [Muscle weakness (generalized)] Onset: 05-27-2020 05-27-2020 Episodic Other connective tissue disease (1 source) Pain in right foot; Translations: [Foot pain, right] Onset: 11-08-2022 Episodic Other non-traumatic joint disorders (1 source) Pain in unspecified hip; Translations: [Hip pain, unspecified laterality] Onset: 11-01-2022 Episodic Phlebitis; thrombophlebitis and thromboembolism (20 sources) Deep venous thrombosis; Translations: [Acute embolism and thrombosis of unspecified deep veins of unspecified lower extremity] Onset: 03-23-2012 07-15-2021 Episodic Results Test Name Value Interpretation Reference Range Facil ity Vital Signs Date Time Vital Sign Value Performing Clinician Alberto land 01-19-2023 12:57-0500 Body height 159 cm Amos Floyd MD Work Phone: [facility] 01-19-2023 12:57-0500 Body weight 64.41 kg Amos Floyd MD Work Phone: [facility] 01-19-2023 12:57-0500 Diastolic blood pressure 66 mm[Hg] Amos Floyd MD Work Phone: [facility] 01-19-2023 12:57-0500 Heart rate 88 /min Amos Floyd MD Work Phone: [facility] 01-19-2023 12:57-0500 Respiratory rate 16 /min Amos Floyd MD Work Phone: [facility] 01-19-2023 12:57-0500 Systolic blood pressure 110 mm[Hg] Amos Floyd MD Work Phone: [facility] 11-08-2022 10:48-0400 Body temperature 97.5 [degF] Jacinda Mccrary MARKET RESEARCH COORDINATOR.OUTSIDE PHYSICAL DAMAGE APPRAISER Work Phone: [facility] 11-08-2022 10:48-0400 Body weight 63.32 kg Jacinda Mccrary MARKET RESEARCH COORDINATOR.OUTSIDE PHYSICAL DAMAGE APPRAISER Work Phone: [facility] 11-08-2022 10:48-0400 Diastolic blood pressure 86 mm[Hg] Jacinda Mccrary MARKET RESEARCH COORDINATOR.OUTSIDE PHYSICAL DAMAGE APPRAISER Work Phone: [facility] 11-08-2022 10:48-0400 Heart rate 78 /min Jacinda Mccrary MARKET RESEARCH COORDINATOR.OUTSIDE PHYSICAL DAMAGE APPRAISER Work Phone: [facility] 11-08-2022 10:48-0400 Respiratory rate 20 /min Jacinda Mccrary MARKET RESEARCH COORDINATOR.OUTSIDE PHYSICAL DAMAGE APPRAISER Work Phone: [facility] 11-08-2022 10:48-0400 SaO2% (BldA) [Mass fraction] 98 % Jacinda Mccrary MARKET RESEARCH COORDINATOR.OUTSIDE PHYSICAL DAMAGE APPRAISER Work Phone: [facility] 11-08-2022 10:48-0400 Systolic blood pressure 128 mm[Hg] Jacinda Mccrary MARKET RESEARCH COORDINATOR.OUTSIDE PHYSICAL DAMAGE APPRAISER Work Phone: [facility] 07-20-2022 10:17-0400 Diastolic blood pressure 66 mm[Hg] Rocio Older MARKET RESEARCH COORDINATOR.OUTSIDE PHYSICAL DAMAGE APPRAISER Work Phone: [facility] 07-20-2022 10:17-0400 Systolic blood pressure 102 mm[Hg] Rocio Older MARKET RESEARCH COORDINATOR.OUTSIDE PHYSICAL DAMAGE APPRAISER Work Phone: [facility] 07-20-2022 10:01-0400 Body weight 63.05 kg Rocio Older MARKET RESEARCH COORDINATOR.OUTSIDE PHYSICAL DAMAGE APPRAISER Work Phone: [facility] 07-20-2022 10:01-0400 Heart rate 96 /min Rocio Older MARKET RESEARCH COORDINATOR.OUTSIDE PHYSICAL DAMAGE APPRAISER Work Phone: [facility] 07-20-2022 10:01-0400 Respiratory rate 16 /min Rocio Older MARKET RESEARCH COORDINATOR.OUTSIDE PHYSICAL DAMAGE APPRAISER Work Phone: [facility] 12-20-2021 09:16-0400 Diastolic blood pressure 100 mm[Hg] Rocio Older MARKET RESEARCH COORDINATOR.OUTSIDE PHYSICAL DAMAGE APPRAISER Work Phone: [facility] 12-20-2021 09:16-0400 Systolic blood pressure 154 mm[Hg] Rocio Older MARKET RESEARCH COORDINATOR.OUTSIDE PHYSICAL DAMAGE APPRAISER Work Phone: [facility] 12-20-2021 08:50-0400 Body height 156 cm Rocio Older MARKET RESEARCH COORDINATOR.OUTSIDE PHYSICAL DAMAGE APPRAISER Work Phone: [facility] 12-20-2021 08:50-0400 Body weight 64.41 kg Rocio Older MARKET RESEARCH COORDINATOR.OUTSIDE PHYSICAL DAMAGE APPRAISER Work Phone: [facility] 12-20-2021 08:50-0400 Heart rate 96 /min Rocio Older MARKET RESEARCH COORDINATOR.OUTSIDE PHYSICAL DAMAGE APPRAISER Work Phone: [facility] 12-20-2021 08:50-0400 Respiratory rate 16 /min Rocio Older MARKET RESEARCH COORDINATOR.OUTSIDE PHYSICAL DAMAGE APPRAISER Work Phone: [facility] 12-06-2021 14:34-0400 Body temperature 97.5 [degF] Amos Floyd MD Work Phone: [facility] 12-06-2021 14:34-0400 Body weight 62.6 kg Amos Floyd MD Work Phone: [facility] 12-06-2021 14:34-0400 Diastolic blood pressure 86 mm[Hg] Amos Floyd MD Work Phone: [facility] 12-06-2021 14:34-0400 Heart rate 84 /min Amos Floyd MD Work Phone: [facility] 12-06-2021 14:34-0400 Respiratory rate 20 /min Amos Floyd MD Work Phone: [facility] 12-06-2021 14:34-0400 Systolic blood pressure 126 mm[Hg] Amos Floyd MD Work Phone: [facility] 10-13-2021 13:48-0400 Body temperature 98.71 [degF] Irene Praisler-Wood MARKET RESEARCH COORDINATOR.OUTSIDE PHYSICAL DAMAGE APPRAISER Work Phone: [facility] 10-13-2021 13:48-0400 Body weight 62.51 kg Irene Praisler-Wood MARKET RESEARCH COORDINATOR.OUTSIDE PHYSICAL DAMAGE APPRAISER Work Phone: [facility] 10-13-2021 13:48-0400 Diastolic blood pressure 84 mm[Hg] Irene Praisler-Wood MARKET RESEARCH COORDINATOR.OUTSIDE PHYSICAL DAMAGE APPRAISER Work Phone: [facility] 10-13-2021 13:48-0400 Heart rate 111 /min Irene Praisler-Wood MARKET RESEARCH COORDINATOR.OUTSIDE PHYSICAL DAMAGE APPRAISER Work Phone: [facility] 10-13-2021 13:48-0400 Respiratory rate 18 /min Irene Praisler-Wood MARKET RESEARCH COORDINATOR.OUTSIDE PHYSICAL DAMAGE APPRAISER Work Phone: [facility] 10-13-2021 13:48-0400 SaO2% (BldA) [Mass fraction] 97 % Ireneyaritza Mendenhall MARKET RESEARCH COORDINATOR.OUTSIDE PHYSICAL DAMAGE APPRAISER Work Phone: [facility] 10-13-2021 13:48-0400 Systolic blood pressure 124 mm[Hg] Irene Mendenhall MARKET RESEARCH COORDINATOR.OUTSIDE PHYSICAL DAMAGE APPRAISER Work Phone: [facility] 07-20-2021 09:20-0400 Body temperature 97.11 [degF] Amos Floyd MD Work Phone: [facility] 07-20-2021 09:20-0400 Body weight 62.6 kg Amos Floyd MD Work Phone: [facility] 07-20-2021 09:20-0400 Diastolic blood pressure 68 mm[Hg] Amos Floyd MD Work Phone: [facility] 07-20-2021 09:20-0400 Heart rate 72 /min Amos Floyd MD Work Phone: [facility] 07-20-2021 09:20-0400 Respiratory rate 16 /min Amos Floyd MD Work Phone: [facility] 07-20-2021 09:20-0400 Systolic blood pressure 114 mm[Hg] Amos Floyd MD Work Phone: [facility] Encounters Encounter Date Encounter Type Care Provider Facility Start: 04-03-2023 End: 04-03-2023 ambulatory AMOS FLOYD Facility:[facility] Start: 04-03-2023 End: 04-03-2023 ambulatory Kole El PT Work Phone: [facility] Physical Therapy Procedures Date Procedure Procedure Detail Performing Clinician Start: 01-19-2023 [employer]-CAPPTURE COVI D-19 VACCINE ( SEASON) AGE 12+ YR Amos Floyd MD Work Phone: Start: 12-19-2022 Radex foot complete minimum 3 views Geraldo Lindsey Work Phone: Start: 12-01-2022 Radex foot complete minimum 3 views Geraldo Lindsey Work Phone: Start: 10-26-2022 INFLUENZA VACCINE, P RSV FREE, AGE 65+ YR, HIGH DOSE, QUADRIVALENT (FLUZONE HIGH-DOSE) Amos Floyd MD Work Phone: Start: 12-20-2021 PFIZER-BIONTECH COVI D-19 BIVALENT BOOSTER VACCINE, AGE 12+ YR Rocio Older MARKET RESEARCH COORDINATOR.OUTSIDE PHYSICAL DAMAGE APPRAISER Work Phone: Start: 12-08-2021 Screening mammograph y bi 2-view breast inc cad Amos Floyd MD Work Phone: Start: 07-20-2021 PFIZER-BIONTECH COVI D-19 VACCINE, AGE 12+ YR (LOPEZ TOP) Amos Floyd MD Work Phone: Start: 07-28-2020 Adult depression scr eening assessment Amos Floyd MD Work Phone: Start: 05-02-2020 Echocardiography Plan of Treatment Date Care Activity Detail Author Start: 11-10-2029 Urine microalbumin profile [facility] Start: 01-18-2026 Diabetes Screening Diabetes Screening [facility] Start: 05-11-2024 DIABETES SCREEN DIABETES SCREEN [facility] Start: 05-11-2024 Diabetes Screening Diabetes Screening [facility] Start: 03-22-2024 Annual PCP Team Chronic Disease Visit Annual PCP Team Chronic Disease Visit [facility] Start: 03-22-2024 BP Controlled (<130/80) BP Controlled (<130/80) [facility] Start: 01-20-2024 Annual PCP Team Chronic Disease Visit Annual PCP Team Chronic Disease Visit [facility] Start: 01-20-2024 BP Controlled (<130/80) BP Controlled (<130/80) [facility] Start: 01-19-2024 Complete blood count Hemoglobin/Hematocrit [facility] Start: 01-19-2024 Creatinine measurement Serum Creatinine [facility] Start: 01-19-2024 Hemoglobin/Hematocrit Hemoglobin/Hematocrit [facility] Start: 01-19-2024 Hepatitis B surface antibody level LDL Cholesterol [facility] Start: 01-19-2024 Serum Creatinine Serum Creatinine [facility] Start: 10-27-2023 ANNUAL PCP TEAM CHRONIC DISEASE VISIT ANNUAL PCP TEAM CHRONIC DISEASE VISIT [facility] Start: 10-27-2023 BP CONTROLLED (<130/80) BP CONTROLLED (<130/80) [facility] Start: 07-21-2023 ANNUAL PCP TEAM CHRONIC DISEASE VISIT ANNUAL PCP TEAM CHRONIC DISEASE VISIT [facility] Start: 07-21-2023 BP CONTROLLED (<130/80) BP CONTROLLED (<130/80) [facility] Start: 02-20-2023 Advance Directive Discussion Advance Directive Discussion [facility] Start: 02-20-2023 Depression Assessment Depression Assessment [facility] Start: 01-06-2023 Hepatitis B surface antibody level LDL CHOLESTEROL [facility] Start: 12-21-2022 End: 02-20-2023 CBC panel - Blood by Automated count CBC Lab Routine Primary hypertension Stage 3b chronic kidney disease (HCC) Expected: 12/21/2022 (Approximate), Expires: 02/20/2023 [facility] Work Phone: Immunizations Immunization Date Immunization Notes Care Provider Fa olaf 01-19-2023 COVID-19 vaccine, ag e 12+ yr, season (PFIZER-BIONTECH) Amos Floyd MD Work Phone: [facility] Work Phone: 10-26-2022 influenza (HD-IIV4) vaccine, age 65+ yr, high dose, quadrivalent, PF (FLUZONE HIGH-DOSE) Amos Floyd MD Work Phone: [facility] 12-20-2021 COVID-19 booster vaccine, age 12+ yr, bivalent (PFIZER-BIONTECH) Rocio Older MARKET RESEARCH COORDINATOR.OUTSIDE PHYSICAL DAMAGE APPRAISER Work Phone: [facility] 11-17-2021 influenza, seasonal, injectable Rocio Older MARKET RESEARCH COORDINATOR.OUTSIDE PHYSICAL DAMAGE APPRAISER Work Phone: [facility] 07-20-2021 COVID-19 vaccine, ag e 12+ yr (PFIZER-BIONTECH - LOPEZ TOP) Amos Floyd MD Work Phone: [facility] Work Phone: 11-20-2020 influenza, high-dose , quadrivalent vaccine (FLUZONE HIGH DOSE QUADRIVALENT) Amos Floyd MD Work Phone: [facility] Work Phone: 06-19-2020 COVID-19 vaccine, ag e 12+ yr (PFIZER-BIONTECH - PURPLE TOP) Amos Floyd MD Work Phone: [facility] Work Phone: 05-26-2020 COVID-19 vaccine, ag e 12+ yr (PFIZER-BIONTECH - PURPLE TOP) Amos Floyd MD Work Phone: [facility] Work Phone: 02-17-2020 zoster vaccine recombinant Amos Floyd MD Work Phone: [facility] Work Phone: 11-17-2019 influenza, high dose seasonal, preservative-free Amos Floyd MD Work Phone: [facility] 11-17-2019 influenza, high-dose , quadrivalent vaccine (FLUZONE HIGH DOSE QUADRIVALENT) Amos Floyd MD Work Phone: [facility] Work Phone: 11-17-2019 zoster vaccine recombinant Amos Floyd MD Work Phone: [facility] Work Phone: 11-11-2019 tetanus toxoid, redu rk diphtheria toxoid, and acellular pertussis vaccine, adsorbed Amos Floyd MD Work Phone: [facility] 12-10-2018 influenza, high dose seasonal, preservative-free Amos Floyd MD Work Phone: [facility] Work Phone: 12-21-2017 pneumococcal vaccine , unspecified formulation Amos Floyd MD Work Phone: [facility] Work Phone: 11-02-2017 influenza, high dose seasonal, preservative-free Amos Floyd MD Work Phone: [facility] Work Phone: 10-27-2015 influenza, seasonal, injectable Amos Floyd MD Work Phone: [facility] 08-19-2015 tetanus and diphther ia toxoids, adsorbed, preservative free, for adult use (5 Lf of tetanus toxoid and 2 Lf of diphtheria toxoid) Amos Floyd MD Work Phone: [facility] 12-03-2014 influenza, high dose seasonal, preservative-free Amos Floyd MD Work Phone: [facility] 10-13-2014 influenza, seasonal, injectable Amos Floyd MD Work Phone: [facility] Work Phone: 10-13-2014 zoster vaccine, live Amos Floyd MD Work Phone: [facility] Work Phone: 03-20-2014 pneumococcal conjuga te vaccine, 13 valent Amos Floyd MD Work Phone: [facility] 11-20-2013 influenza, seasonal, injectable Amos Floyd MD Work Phone: [facility] 11-24-2012 influenza virus vacc ine, unspecified formulation Amos Floyd MD Work Phone: [facility] Work Phone: 11-13-2012 influenza, seasonal, injectable, preservative free Amos Floyd MD Work Phone: [facility] Work Phone: 11-13-2012 pneumococcal Conjuga te, unspecified formulation Rocio Older MARKET RESEARCH COORDINATOR.OUTSIDE PHYSICAL DAMAGE APPRAISER Work Phone: [facility] 11-13-2012 pneumococcal polysaccharide vaccine, 23 valent Amos Floyd MD Work Phone: [facility] Work Phone: 01-06-2012 influenza virus vacc ine, unspecified formulation Amos Floyd MD Work Phone: [facility] Work Phone: 04-16-2009 novel influenza-H1N1 -09, all formulations Amos Floyd MD Work Phone: [facility] 07-18-2008 pneumococcal polysaccharide vaccine, 23 valent Amos Floyd MD Work Phone: [facility] Work Phone: 01-12-2007 influenza virus vacc ine, unspecified formulation Amos Floyd MD Work Phone: [facility] Work Phone: 12-14-2005 influenza virus vacc ine, unspecified formulation Amos Floyd MD Work Phone: [facility] Work Phone: 04-26-2005 tetanus and diphther ia toxoids, adsorbed, preservative free, for adult use (2 Lf of tetanus toxoid and 2 Lf of diphtheria toxoid) Amos Floyd MD Work Phone: [facility] Payers Date Payer Category Payer Medicare [id number] 2017 Medicare [employer] MEDICARE [employer] MEDICARE PPO [id number] 2017-Present [phone] [address] [address] [place] [address] PPO [id number] 2017 Medicare [id number] 2017 Private Health Insurance [id number] 1945 Unknown [id number] Social History Date Type Detail Facility Start: 10-13-2021 Tobacco smoking stat us MDIS Never smoked tobacco [facility] Work Phone: Start: 07-20-2021 End: 03-22-2023 Alcohol intake Current non-drinker of alcohol (finding) [facility] Start: 1945 Sex Assigned At Not on file [facility] Start: 07-10-2021 End: 12-08-2021 Exposure to SARS-CoV-2 (event) Not sure [facility] Work Phone: Start: 10-13-2021 Tobacco use and exposure Smokeless tobacco non-user [facility] Start: 07-20-2022 End: 01-19-2023 History of Social function [facility] Work Phone: Start: 07-20-2022 End: 01-19-2023 Tobacco use panel [facility] Work Phone: Adult Depression Screening Assessment 0 [facility] Work Phone: Clinical Notes 03-10-2016 to 04-03-2023 Kole El, PT - 04/03/2023 10:57 AM Kole Hamilton, PT - 04/03/2023 10:06 AM Kole Hamilton, PT - 03/28/2023 9:04 AM Kole Hamilton, PT - 03/28/2023 8:12 AM ESTPatient Instructions Note Date & Type Note Facility 04-03-2023 Note HNO ID: [id number] Author: KOLE EL PT Service: ? Author Type: Physical Therapist Type: Progress Notes Filed: 04/03/2023 11:26 Note Text: Episode Visit Count: 2 Therapist That Will Accept/Oversee The Plan Of Care: Kole El PT, DPT. Start of Care Date: 03/28/23 Onset Date: 11/07/22 Plan of Care Certification Date: 03/28/23 Next Certification Due Date: 05/02/23 Patient Identified by Name and Date of : Yes REHABILITATION AND SPORTS THERAPY PHYSICAL THERAPY TREATMENT NOTE ASSESSMENT: Linda Peralta tolerated the session with expected muscle soreness. She demonstrated difficulty with R Hip ABD due to L Hip Weakness on single leg stance. The patient will continue to benefit from ongoing skilled physical therapy to progress toward set goals. PLAN FOR NEXT VISIT: Lateral Glute/Hip Strength; L Hip flexor Stretch/Strengthening; MET for L innominate rotation. SUBJECTIVE: Pt. reports she has been better since last visit; felt as though the legs were getting stronger. Pain: Pain Pain Level: 0 Pain Location: Leg - Left, Leg - Right Post Treatment Pain Post Treatment Pain Location: Leg - Left, Leg - Right Post Treatment Pain Description: Sore Post Treatment Symptoms: No c/o pain leaving session. OBJECTIVE MEASURES WITH LEVEL OF FUNCTION: Less ROM with L Hip ABD over Right. Tender to palpate L Glute Med AND Min. TREATMENT: Therapeutic Exercise: 1: S/L Hip ABD: 1x10 Spencer. 2: Supine SLR: 1x12 ea. 3: Bridges: 1x12 4: S/L Clamshells: 1x10 ea. 5: LAQ: 2x12 Spencer, 4# 6: Standing Mini-Squats: 2x10. 7: Standing Hip ABD: 2x10 ea. 8: Standing Hip Flexor Lift Off: 2x10 ea., off blue box, 3#cuff. Skilled Intervention: Patient was educated in proper exercise technique and purpose for exercises. Reviewed and educated patient on additions/changes for home exercise program as above (*). Skilled judgment was used in selection of appropriate interventions. Provided written instruction for home exercise program to facilitate proper performance and compliance. Correct performance of therapeutic exercises was facilitated with verbal, visual, and tactile cuing. Manual Therapy: 1: STM w/ lacrosse ball to L Glute Med AND Min:Push to tolerance. 2: Shotgun Technique: 1 Bout. 3: Manual Flexibility to L Hip Flexor: 2x30 . Skilled Intervention: Manual skills to improve joint mobility, ROM, and decrease pain. Utilized anatomy knowledge of the therapist, and assessment of patient's response to intervention. Billing Therapeutic Exercise Treatment Minutes: 39 Manual TherapyTreatment Minutes: 6 Skilled Treatment Time Minutes (timed and untimed codes): 45 Total Session Time (minutes): 45 Session Start Time : 1015 Session Stop Time : 1100 Kole El, PT [facility] 04-03-2023 History of Present illness Narrative Program_ID:[id number] Access Code: [email or web address] URL: [email or web address] Date: 04-03-2023 Prepared By: Kole El Program Notes Exercises - Supine Bridge - 2 x daily - 5 x weekly - 2 sets - 10 reps - Mini Squat with Counter Support - 2 x daily - 5 x weekly - 2 sets - 10 reps - Clamshell with Resistance - 2 x daily - 5 x weekly - 2 sets - 8-12 reps - Supine Active Straight Leg Raise - 2 x daily - 5 x weekly - 2 sets - 6-10 reps - Standing Hip Abduction with Counter Support - 2 x daily - 5 x weekly - 2 sets - 10 reps - Standing Marching - 2 x daily - 5 x weekly - 2 sets - 10 reps - Seated Long Arc Quad with Ankle Weight - 2 x daily - 5 x weekly - 2 sets - 10 reps - Standing Hip Flexion with Counter Support - 2 x daily - 5 x weekly - 2 sets - 10 reps Episode Visit Count: 2 Therapist That Will Accept/Oversee The Plan Of Care: Kole El, PT, DPT. Start of Care Date: 03/28/23 Onset Date: 11/07/22 Plan of Care Certification Date: 03/28/23 Next Certification Due Date: 05/02/23 Patient Identified by Name and Date of : Yes REHABILITATION AND SPORTS THERAPY PHYSICAL THERAPY TREATMENT NOTE ASSESSMENT: Linda Peralta tolerated the session with expected muscle soreness. She demonstrated difficulty with R Hip ABD due to L Hip Weakness on single leg stance. The patient will continue to benefit from ongoing skilled physical therapy to progress toward set goals. PLAN FOR NEXT VISIT: Lateral Glute/Hip Strength; L Hip flexor Stretch/Strengthening; MET for L innominate rotation. SUBJECTIVE: Pt. reports she has been better since last visit; felt as though the legs were getting stronger. Pain: Pain Pain Level: 0 Pain Location: Leg - Left, Leg - Right Post Treatment Pain Post Treatment Pain Location: Leg - Left, Leg - Right Post Treatment Pain Description: Sore Post Treatment Symptoms: No c/o pain leaving session. OBJECTIVE MEASURES WITH LEVEL OF FUNCTION: Less ROM with L Hip ABD over Right. Tender to palpate L Glute Med & Min. TREATMENT: Therapeutic Exercise: 1: S/L Hip ABD: 1x10 Spencer. 2: Supine SLR: 1x12 ea. 3: Bridges: 1x12 4: S/L Clamshells: 1x10 ea. 5: LAQ: 2x12 Spencer, 4# 6: Standing Mini-Squats: 2x10. 7: Standing Hip ABD: 2x10 ea. 8: Standing Hip Flexor Lift Off: 2x10 ea., off blue box, 3#cuff. Skilled Intervention: Patient was educated in proper exercise technique and purpose for exercises. Reviewed and educated patient on additions/changes for home exercise program as above (*). Skilled judgment was used in selection of appropriate interventions. Provided written instruction for home exercise program to facilitate proper performance and compliance. Correct performance of therapeutic exercises was facilitated with verbal, visual, and tactile cuing. Manual Therapy: 1: STM w/ lacrosse ball to L Glute Med & Min:Push to tolerance. 2: Shotgun Technique: 1 Bout. 3: Manual Flexibility to L Hip Flexor: 2x30 . Skilled Intervention: Manual skills to improve joint mobility, ROM, and decrease pain. Utilized anatomy knowledge of the therapist, and assessment of patient's response to intervention. Billing Therapeutic Exercise Treatment Minutes: 39 Manual TherapyTreatment Minutes: 6 Skilled Treatment Time Minutes (timed and untimed codes): 45 Total Session Time (minutes): 45 Session Start Time : 1015 Session Stop Time : 1100 Kole El PT documented in this encounter [facility] 03-28-2023 Note HNO ID: [id number] Author: KOLE EL PT Service: ? Author Type: Physical Therapist Type: Progress Notes Filed: 03/28/2023 11:44 Note Text: Episode Visit Count: 1 Therapist That Will Accept/Oversee The Plan Of Care: Kole El PT, DPT. Start of Care Date: 03/28/23 Onset Date: 11/07/22 Plan of Care Certification Date: 03/28/23 Next Certification Due Date: 05/02/23 Patient Identified by Name and Date of : Yes REHABILITATION AND SPORTS THERAPY PHYSICAL THERAPY EVALUATION PLAN OF CARE: Assessment: Linda Peralta presents with chief complaint of gait deficits / B Hip pain w/o lower extremity sxs / R Foot (5th MT) pain from healing prior fracture that interferes with walking, walking in the house, walking in the community, stair negotiation, physical activities, recreational activities . She presents with impairments in ADL's, flexibility, gait, independence in exercise, overall function, range of motion, strength, symptom management, and tissue tenderness. PROMIS? (Patient-Reported Outcomes Measurement Information System) scores were reviewed and self efficacy domain identified as a rehabilitation concern. Prognosis for therapy is Good due to: current objective clinical presentation, positive past response to therapy, within-session changes, good support system/ coping skills .She will benefit from skilled therapy services to meet the goals established for this plan of care as noted below. Goals for Episode of Care: created on 03/28/23 through 05/09/23 [place] in home exercise program. Patient will decrease pain rating by 2 points to meet minimal clinical important difference for numeric pain rating scale. Patient will demonstrate increase in BLE strength to 4+ to 5/5 (abdoulaye. Hip flexors AND hip ABD) during manual muscle testing in order to improve function for basic self-care tasks, home management tasks, prior functional tasks, and light functional tasks. Perform walking with decreased report of symptoms/pain in 6 weeks. Improve gait mechanics for ability tp return to leisure / recreation exercise. Improve stair ascending negotiation without report of symptoms/pain in 6 weeks. Patient Goals: Reduce pain; improve movement; get back to PLOF. Planned Interventions, Frequency, and Duration: Current Frequency: 1x/week Duration: 6 weeks Total Number of Visits Planned: 6 Planned Treatment Interventions: Therapeutic exercise (28122), Neuromuscular re-education (93189), Manual therapy (55990), Self-shelter management (03588), Therapeutic activities (67425), Gait Training (55163), Patient/Family/Caregiver Education PLAN FOR NEXT VISIT: Assess how HEP went; continue/progress lateral glute AND quad strength; gait interventions. Patient demonstrates good understanding of plan of care and treatment. The above goals and plan of care were discussed and agreed upon by patient/family. SUBJECTIVE: Pt. reports R Foot insidious onset of pain one morning back in the fall of 2022; found to have closed displaced fracture in the R Foot/5th MT - now w/ delayed healing; she wore a boot for a 1.5 months; reports today the R Foot is aching, typically ranges at 2-3/10 and she knows it is there but doesn't keep her from being on the R Foot ; States B Hip pain came back in the last couple weeks and notes achiness/stiffness in them. Foot AND B Hips hurt during walking and get more symptoms the further she goes. Resting is the only thing that helps. Notes gait deficits. Does not use a cane for assistance. Recent radiograph states - Unchanged alignment of a healing fracture of the right fifth metatarsal. She Denies N/T down the B LEs. Patient Goals: Reduce pain; improve movement; get back to PLOF. Functional Limitations: walking, walking in the house, walking in the community, stair negotiation, physical activities, recreational activities Prior Level of Function: Independent without limitations Relevant History Past Relevant Medical Conditions: Hypertension Employment: Retired Recreation / Current Exercise: Was a walker everyday; however hasn't walked for exercise since 10/2022. Intake Information: Prescription present Previous Treatment: Physical Therapy Falls Interview: No positive findings with falls interview Pain: Pain Pain Level: 3 Pain Location: Foot - Right Description: Aching Frequency: Intermittent Post Treatment Pain Post Treatment Pain Level: No Change Post Treatment Symptoms: No change or c/o of pain; patient states she mentally feels better leaving session today about her condition. PROMIS Scales Higher is Better 03/28/2023 11/08/2022 Phys Func - Score 41 (mild dysfunction) 49 (within normal limits) Phys Func - Percentile 18% 46% Self-Eff Symptom - Score 41 (Average) 58 (Average) Self-Eff Symptom - Percentile 18% 79% T-scores: mean of general population = 50. 5 points is clinically meaningfully difference Percentiles provide (more content not included)... [facility] 03-28-2023 History of Present illness Narrative Program_ID:[id number] Access Code: [email or web address] URL: [email or web address] Date: 03-28-2023 Prepared By: Kole El Program Notes Exercises - Supine Bridge - 2 x daily - 5 x weekly - 2 sets - 10 reps - Mini Squat with Counter Support - 2 x daily - 5 x weekly - 2 sets - 10 reps - Clamshell with Resistance - 2 x daily - 5 x weekly - 2 sets - 8-12 reps - Supine Active Straight Leg Raise - 2 x daily - 5 x weekly - 2 sets - 6-10 reps - Standing Hip Abduction with Counter Support - 2 x daily - 5 x weekly - 2 sets - 10 reps - Standing Marching - 2 x daily - 5 x weekly - 2 sets - 10 reps Episode Visit Count: 1 Therapist That Will Accept/Oversee The Plan Of Care: Kole El, PT, DPT. Start of Care Date: 03/28/23 Onset Date: 11/07/22 Plan of Care Certification Date: 03/28/23 Next Certification Due Date: 05/02/23 Patient Identified by Name and Date of : Yes REHABILITATION AND SPORTS THERAPY PHYSICAL THERAPY EVALUATION PLAN OF CARE: Assessment: Linda Peralta presents with chief complaint of gait deficits / B Hip pain w/o lower extremity sxs / R Foot (5th MT) pain from healing prior fracture that interferes with walking, walking in the house, walking in the community, stair negotiation, physical activities, recreational activities . She presents with impairments in ADL's, flexibility, gait, independence in exercise, overall function, range of motion, strength, symptom management, and tissue tenderness. PROMIS (Patient-Reported Outcomes Measurement Information System) scores were reviewed and self efficacy domain identified as a rehabilitation concern. Prognosis for therapy is Good due to: current objective clinical presentation, positive past response to therapy, within-session changes, good support system/ coping skills .She will benefit from skilled therapy services to meet the goals established for this plan of care as noted below. Goals for Episode of Care: created on 03/28/23 through 05/09/23 [place] in home exercise program. Patient will decrease pain rating by 2 points to meet minimal clinical important difference for numeric pain rating scale. Patient will demonstrate increase in BLE strength to 4+ to 5/5 (abdoulaye. Hip flexors & hip ABD) during manual muscle testing in order to improve function for basic self-care tasks, home management tasks, prior functional tasks, and light functional tasks. Perform walking with decreased report of symptoms/pain in 6 weeks. Improve gait mechanics for ability tp return to leisure / recreation exercise. Improve stair ascending negotiation without report of symptoms/pain in 6 weeks. Patient Goals: Reduce pain; improve movement; get back to PLOF. Planned Interventions, Frequency, and Duration: Current Frequency: 1x/week Duration: 6 weeks Total Number of Visits Planned: 6 Planned Treatment Interventions: Therapeutic exercise (05765), Neuromuscular re-education (83183), Manual therapy (89518), Self-shelter management (83511), Therapeutic activities (71424), Gait Training (48061), Patient/Family/Caregiver Education PLAN FOR NEXT VISIT: Assess how HEP went; continue/progress lateral glute & quad strength; gait interventions. Patient demonstrates good understanding of plan of care and treatment. The above goals and plan of care were discussed and agreed upon by patient/family. SUBJECTIVE: Pt. reports R Foot insidious onset of pain one morning back in the fall of 2022; found to have closed displaced fracture in the R Foot/5th MT - now w/ delayed healing; she wore a boot for a 1.5 months; reports today the R Foot is aching, typically ranges at 2-3/10 and she knows it is there but doesn't keep her from being on the R Foot ; States B Hip pain came back in the last couple weeks and notes achiness/stiffness in them. Foot & B Hips hurt during walking and get more symptoms the further she goes. Resting is the only thing that helps. Notes gait deficits. Does not use a cane for assistance. Recent radiograph states - Unchanged alignment of a healing fracture of the right fifth metatarsal. She Denies N/T down the B LEs. Patient Goals: Reduce pain; improve movement; get back to PLOF. Functional Limitations: walking, walking in the house, walking in the community, stair negotiation, physical activities, recreational activities Prior Level of Function: Independent without limitations Relevant History Past Relevant Medical Conditions: Hypertension Employment: Retired Recreation / Current Exercise: Was a walker everyday; however hasn't walked for exercise since 10/2022. Intake Information: Prescription present Previous Treatment: Physical Therapy Falls Interview: No positive findings with falls interview Pain: Pain Pain Level: 3 Pain Location: Foot - Right Description: Aching Frequency: Intermittent Post Treatment Pain Post Treatment Pain Level: No Change Post Treatment Symptoms: No change or c/o of pain; patient states she mentally feels better leaving session today about her condition. PROMIS Scales Higher is Better 03/28/2023 11/08/2022 Phys Func - Score 41 (mild dysfunction) 49 (within normal limits) Phys Func - Percentile 18% 46% Self-Eff Symptom - Score 41 (Average) 58 (Average) Self-Eff Symptom - Percentile 18% 79% T-scores: mean of general population = 50. 5 points is clinically meaningfully difference Percentiles provide an indication of how the patient's score ranks in relation to the general population. Higher percentile rankings indicate better function/quality of life. 50th percentile is the average of the general population and indicates half of respondents had a worse score. OBJECTIVE MEASURES WITH LEVEL OF FUNCTION: Hip Observations R Hip Palpation Tenderness: (Glute Min & Med; Iliac Crest, PSIS.) L Hip Palpation Tenderness: (Glute Min & Med; Iliac Crest, PSIS.) Ankle Observations Weight Bearing Status: Other (See Comment) (FWB.) LE AROM R LE AROM: WNL L LE AROM: WNL LE Strength R LE Strength: Grossly 4+/5 Hip/Knee, 5/5 at Ankle/Foot. L LE Strength: Grossly 4+/5 Hip/Knee, 5/5 at Ankle/Foot. R Hip Extension: 4/5 R Hip Flexion (L2): 3/5 R Hip ABduction: 3-/5 L Hip Extension: 4/5 L Hip Flexion (L2): 3/5 L Hip ABduction: 3-/5 Special Tests - Hip and Spine Hip and Spine Special Tests: SLR Test SLR Test: Right Negative, Left Negative Gait Weight Bearing Status: FWB Gait: Independent Gait Distance (feet): 15x4 (to assess gait.) Gait Device: None Gait Deviations: Left Lower Extremity, General Deviations Gait Deviations Left Lower Extremity: Stance time decreased, Weight bearing decreased Gait Observation: B Trendelenburg/Waddling Gait. Education: Education Learning/educational needs: Health promotion, Home exercise program, Plan of Care, Changes in Plan of Care, Gait Training, Body Mechanics TREATMENT: PT Treatment Interventions: Therapeutic Exercise, Self-Residential Management Evaluation Therapeutic Exercise: 1: *S/L Hip ABD: 1x10 Spencer. (Deficits in range due to weakness.) 2: *Supine SLR: 1x10 ea. 3: *Bridges: 1x10. 4: *S/L Clamshells: 1x10 ea. 5: *Standing Hip ABD: 1x10 ea. 6: *Standing Mini-Squats: 1x10. 7: - Standing Hip Marches prescribed for HEP, not completed. 8: *Discussed therapy goals, exercise purpose and importance, HEP handout provided. Skilled Intervention: Patient was educated in proper exercise technique and purpose for exercises. Reviewed and educated patient on additions/changes for home exercise program as above (*). Skilled judgment was used in selection of appropriate interventions. Provided written instruction for home exercise program to facilitate proper performance and compliance. Correct performance of therapeutic exercises was facilitated with verbal, visual, and tactile cuing. Self-Residential Management: 1: Extended time spent rationalizing and explaining differential diagnosis today; discussed treatment options including massage & soft tissue mobilization to the glutes, exercise consisting of stretch/strengthening targeting her specific deficits and gait training working on decreasing her deviations; discussed prognosis and expectations. Skilled Intervention: Skilled judgment in the selection of proper modification for activity of daily living/home management based on clinical presentation, deficits, and needs. Reviewed patient specific diagnosis in relation to activities of daily living/home management. Activity progression based on professional judgement. Billing * Evaluation Low Complexity: 1 Unit Therapeutic Exercise Treatment Minutes: 14 Self-Care/Home Management Treatment Minutes: 10 Skilled Treatment Time Minutes (timed and untimed codes): 44 Total Session Time (minutes): 49 Session Start Time : 815 Session Stop Time : 904 Kole El PT documented in this encounter [facility] 03-24-2023 Miscellaneous Notes Patient called in and message from Dr. Lindsey given. She verbalized understanding. documented in this encounter [facility] 03-22-2023 Note HNO ID: [id number] Author: AMOS FLOYD MD Service: ? Author Type: Physician Type: Progress Notes Filed: 03/22/2023 14:13 Note Text: This note was created using Drawn to Scaleriter. Subjective Linda Peralta is a 77 year old female. She's been dealing with delayed healing right foot fracture since fall. This was affecting her gait, and increasing her hip pain. She was interested in PT for her ambulation. She saw TONSORIAL ARTIST for dizziness. This resolved with home exercises. Review of Systems Constitutional: Negative. 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 Hypercalcemia Ashd (Arteriosclerotic Heart Disease) Dvt (Deep Venous Thrombosis) (Hcc) 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 Chronic Nonallergic Rhinitis Pure hypercholesterolemia Atopic Neurodermatitis Hypertension Generalized Muscle Weakness Stage 3b Chronic Kidney Disease (Hcc) Hypertensive Kidney Disease With Stage 3b Chronic Kidney Disease (Hcc) Hip Pain Age-Related Osteoporosis With Current Pathological Fracture With Routine Healing Current Outpatient Medications Medication Sig dupilumab 300 mg/2 mL subcutaneous pen injector (GuardiCore) .[id number] meclizine (ANTIVERT) 25 mg tab Take 1 tablet by mouth every 6 hours as needed (dizziness). fluticasone (FLONASE) 50 mcg/actuation nasal spray Use 2 Sprays in each nostril once daily. Rinse mouth after use. hydrOXYzine HCl (ATARAX) 50 mg tablet Take 1 tablet by mouth at bedtime as needed for itching/rash. hydrocortisone (CORTEF) 10 mg tablet As directed per endocrinology. simvastatin (ZOCOR) 20 mg tablet Take 1 tablet by mouth daily at bedtime. amLODIPine (NORVASC) 5 mg tablet Take 2.5 mg by mouth once daily. Per [facility]. levocetirizine (XYZAL) 5 mg tablet Take 1 tablet by mouth once daily. cholecalciferol (VITAMIN D3) 400 unit tab Take 400 Units by mouth once daily. nitroglycerin sublingual (NITROQUICK) 0.4 mg SL tablet Dissolve 1 tablet under the tongue every 5 minutes as needed. denosumab (PROLIA) 60 mg/mL Inject 1 mL subcutaneously once every [address] Torsten Vann, endocrinology. warfarin (COUMADIN) 2.5 mg tablet Take 1 tablet by mouth once daily. acetaminophen (TYLENOL) 325 mg tablet Take 650 mg by mouth every 6 hours as needed. No current facility-administered medications for this visit. Objective BP 110/78 (BP Site: Left Arm, BP Position: Sitting, BP Cuff Size: Large Adult) Pulse 92 Temp 36.3 ?C (97.4 ?F) (Temporal) Resp 16 Wt 64.9 kg (143 lb) BMI 25.66 kg/m? Physical Exam Constitutional: Appearance: She is not ill-appearing. Musculoskeletal: Right lower leg: No edema. Left lower leg: No edema. Neurological: General: No focal deficit present. Mental Status: She is alert. Gait: Gait abnormal. Comments: Antalgic gait with slight pelvic tilt. Assessment and Plan 1. Gait abnormality - ICD9: 781.2, ICD10: R26.9 (primary diagnosis) - CONSULT TO PHYSICAL THERAPY 2. Dizziness - ICD9: 780.4, ICD10: R42 Resolved. 3. Hip pain, unspecified laterality - ICD9: 719.45, ICD10: M25.559 - CONSULT TO PHYSICAL THERAPY 4. Closed displaced fracture of fifth metatarsal bone of right foot with delayed healing, subsequent encounter - ICD9: V54.19, ICD10: S92.351G - CONSULT TO PHYSICAL THERAPY Amos Floyd MD [facility] 03-20-2023 Note HNO ID: [id number] Author: ISRAEL LOFTON RT(R) Service: ? Author Type: Mandarin Speaking Nanny Type: Progress Notes Filed: 03/20/2023 12:00 Note Text: Radiology Service Progress Note PATIENT NAME: Linda Peralta DATE OF SERVICE: March 20, 2023 TIME: 11:49 AM PATIENT IDENTITY VERIFICATION COMPLETED USING TWO (2) IDENTIFIERS: Name and Date of confirmed by patient verbally. FALL SCREENING: Has the patient had 2 falls in the last year or 1 fall with injury or currently using an Ambulatory Assistive Device (Walker, Cane, Wheelchair, Crutches, etc.)? No PATIENT GENDER DATA: Female. status: : No status: NO. PATIENT RELEVANT IMPLANT DATA REVIEWED: Yes PATIENT PRESENTS WITH AN IMPLANTABLE OR ATTACHED CUSTODIAL AIDE: No RADIOLOGY DEPARTMENT: General X-ray: Exam(s) Completed: Lower Extremity X-Ray(s): Foot, Right PERIPHERAL IV DATA: Not applicable SIGNED BY: RT Kurt(R) March 20, 2023 11:49 AM [facility] 03-20-2023 Note HNO ID: [id number] Author: GERALDO LINDSEY, ? Service: ? Author Type: Physician Type: Progress Notes Filed: 03/20/2023 11:37 Note Text: FOLLOW UP PODIATRIC OFFICE VISIT Chief Complaint: This 77 year old who presents for follow up:right 5th metatarsal fracture Patient presents to clinic for follow-up right 5th metatarsal fracture Patient was using boot but changed to firm sole shoe with insert when weather changed She still has some pain. Feels the pain comes and goes. Is not sure if the pain is from the foot or from her hip PAIN EVALUATION 03/20/2023 1120 Pain Level: 3 Pain Location: Foot-Right Description: Dull Duration Amount of Time: 4 Duration Units: Months Frequency: Intermittent Intervention/Comfort measure: Reposition;Relaxation Hemoglobin A1C Date Value Ref Range Status 03/07/2019 5.3 4.3 - 5.6 % Final Comment: [place] [employer] guidelines indicate that patients with HgbA1c in the range 5.7-6.4% are at increased risk for development of diabetes, and intervention by lifestyle modification may be beneficial. HgbA1c greater or equal to 6.5% is considered diagnostic of diabetes. PCP: Amos Floyd MD PAST MEDICAL HISTORY Diagnosis Date Age-related osteoporosis with current pathological fracture with routine healing 01/19/2023 Anemia 08/26/2009 ASHD (arteriosclerotic heart disease) 04/25/2009 Asthma Benign neoplasm of colon 04/26/2005 Tubular adenoma Chronic diarrhea 03/15/2010 Chronic sphenoidal sinusitis 09/15/2003 Closed fracture of bone of right foot 11/08/2022 Collagenous colitis 03/30/2010 Contact dermatitis and other eczema, due to unspecified cause 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Navarre's disease Cystocele, midline 07/23/2007 Diverticulosis of colon (without mention of hemorrhage) DVT (deep venous thrombosis) ([facility]) 03/23/2012 DVT of lower extremity (deep venous thrombosis) ([facility]) 03/27/2009 Esophageal reflux Gallstones 03/06/2016 Hypercalcemia 03/19/2009 Hypertension NSTEMI (non-ST elevated myocardial infarction) ([facility]) 04/27/2009 Cardiac cath normal Other adrenal hypofunction PMH - PAST MEDICAL HISTORY OF Left kidney donated Psoriasis and similar disorder Pure hypercholesterolemia 02/17/2015 Right renal mass 03/27/2009 Snoring Syncope Tonic pupillary reaction Unspecified disorder of autonomic nervous system 10/20/2003 Unspecified disorder resulting from impaired renal function 04/26/2005 Unspecified sinusitis (chronic) Current Outpatient Medications Medication Sig dupilumab 300 mg/2 mL subcutaneous pen injector (GuardiCore) .[id number] meclizine (ANTIVERT) 25 mg tab Take 1 tablet by mouth every 6 hours as needed (dizziness). fluticasone (FLONASE) 50 mcg/actuation nasal spray Use 2 Sprays in each nostril once daily. Rinse mouth after use. hydrOXYzine HCl (ATARAX) 50 mg tablet Take 1 tablet by mouth at bedtime as needed for itching/rash. hydrocortisone (CORTEF) 10 mg tablet As directed per endocrinology. simvastatin (ZOCOR) 20 mg tablet Take 1 tablet by mouth daily at bedtime. amLODIPine (NORVASC) 5 mg tablet Take 2.5 mg by mouth once daily. [facility]. levocetirizine (XYZAL) 5 mg tablet Take 1 tablet by mouth once daily. cholecalciferol (VITAMIN D3) 400 unit tab Take 400 Units by mouth once daily. nitroglycerin sublingual (NITROQUICK) 0.4 mg SL tablet Dissolve 1 tablet under the tongue every 5 minutes as needed. denosumab (PROLIA) 60 mg/mL Inject 1 mL subcutaneously once every [address] Torsten Vann, endocrinology. warfarin (COUMADIN) 2.5 mg tablet Take 1 tablet by mouth once daily. acetaminophen (TYLENOL) 325 mg tablet Take 650 mg by mouth every 6 hours as needed. No current facility-administered medications for this visit. ALLERGIES Allergen Reactions Cipro [Ciprofloxaci* rash with 500mg dose Penicillins rash PAST SURGICAL HISTORY Procedure Laterality Date CATARACT EXTRACTION HX Bilateral 10/2017 and October 2017 COLONOSCOPY W/BIOPSY 03/25/2016 COLONOSCOPY FLX DX W/COLLJ SPEC WHEN PFRMD 05/12/2004 Colonoscopy COLONOSCOPY FLX DX W/COLLJ SPEC WHEN PFRMD 09/20/2007 Colonoscopy COLONOSCOPY FLX DX W/COLLJ SPEC WHEN PFRMD 05/11/2009 Colonoscopy COLONOSCOPY FLX DX W/COLLJ SPEC WHEN PFRMD 03/26/2010 Inpatient at [facility] ESOPHAGOGASTRODUODENOSCOPY TRANSORAL DIAGNOSTIC 02/2002 EGD ESOPHAGOGASTRODUODENOSCOPY TRANSORAL DIAGNOSTIC 05/01/2009 EGD ESOPHAGOGASTRODUODENOSCOPY TRANSORAL DIAGNOSTIC 11/18/2009 EGD, EXC CYST/ABERRANT BREAST TISSUE OPEN 1/> LESION 1960 benign IVC FILTER PERCUTANEOUS 03/31/2009 LAPS SURG CHOLECYSTECTOMY W/CHOLANGIOGRAPHY 03/30/2016 LEFT HEART CATH,PERCUTANEOUS 04/27/2009 Cardiac cath, L heart NEPHRECTOMY PARTIAL 04/2000 Nephrectomy, left NEPHRECTOMY PARTIAL 04/14/09 Right - metanephric adenoma (benign) OOPHORECTOMY PARTIAL/TOTAL UNI/BI Left 1973 Ovarian cystectomy PERCUTANEOUS DRAINAGE RENAL/PERIRENAL ABSC (more content not included)... [facility] 03-20-2023 Note HNO ID: [id number] Author: JULIETA AVENDANO LPN Service: ? Author Type: LICENSED NURSE Type: Progress Notes Filed: 03/20/2023 11:37 Note Text: AMB ROOMING INTAKE FLOWSHEET DATA Pain Pain Level: 3 Pain Location: Foot-Right Description: Dull Duration Amount of Time: 4 Duration Units: Months Frequency: Intermittent Intervention/Comfort measure: Reposition, Relaxation Patient presents with: Right Foot - Established Patient, Follow Up, discuss xray Julieta Avendano LPN [facility] 03-14-2023 Note HNO ID: [id number] Author: ANITA LOPES APRN.KEY HOLDER Service: ? Author Type: Nurse Specialist Type: Progress Notes Filed: 03/14/2023 17:03 Note Text: SUBJECTIVE: RSV Vaccine(1 - 1-dose 60+ series) Never done Advance Directive Discussion due on 02/20/2023 Depression Assessment due on 02/20/2023 HPI Linda Peralta is a 77 year old female. PMH significant for 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 Hypercalcemia Ashd (Arteriosclerotic Heart Disease) Dvt (Deep Venous Thrombosis) (Hcc) 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 Chronic Nonallergic Rhinitis Pure hypercholesterolemia Atopic Neurodermatitis Hypertension Generalized Muscle Weakness Stage 3b Chronic Kidney Disease (Hcc) Hypertensive Kidney Disease With Stage 3b Chronic Kidney Disease (Hcc) Hip Pain Age-Related Osteoporosis With Current Pathological Fracture With Routine Healing PCP: Amos Floyd MD She called the office earlier today. Telephone encounter excerpted: Pt reports having dizzy episodes for 2 weeks now- daily couple times a day-usually when lays down, lightheadedness maybe every other day, vertigo if moves head too fast. Has talked to Yong aleman and [facility] about this. Yong aleman had pt stop triamcinolone 1 week ago (prescribed for dermatitis- used from head to toe- pt still receives dupintex inj for 2 yrs now for dermatitis). [facility] decreased amlodipine to 2.5 mg daily. Stays hydrated. No other symptoms. No dizziness now- happens more at bedtime or if turns head too fast. POX reading 95% and HR 86. Protocol recommends see provider in 24 hours. Scheduled same day appt with Audio Production Manager due to pt's schedule. Notes dizziness with lying down, present for less than one minute. Notes when arising from bed or when turning her head. Vision changes: no Speech changes: no Mobility changes: no Facial drooping: no Positional: yes, worse when looking or lying to her right. Review of [facility] notes 03/03/2023 indicate that her dose of amlodipine was decreased. Echocardiogram was ordered and scheduled, not yet completed to reassess valve disease and pumping action of the heart. Notes indicate that they thought she had vertigo and was to contact her PCP. She states she was not advised of this. Review of Systems Respiratory: Negative. Cardiovascular: Negative. Neurological: Positive for dizziness. Objective Resp 16 Wt 64.9 kg (143 lb) BMI 25.66 kg/m? Physical Exam Vitals and nursing note reviewed. Constitutional: Appearance: Normal appearance. HENT: Head: Normocephalic and atraumatic. Eyes: Conjunctiva/sclera: Conjunctivae normal. Cardiovascular: Rate and Rhythm: Normal rate and regular rhythm. Pulses: Carotid pulses are 2+ on the right side and 2+ on the left side. Radial pulses are 2+ on the right side and 2+ on the left side. Heart sounds: Murmur heard. Comments: Bruit versus referred heart sounds left carotid Pulmonary: Effort: Pulmonary effort is normal. Breath sounds: Normal breath sounds. Abdominal: General: Bowel sounds are normal. Skin: General: Skin is warm and dry. Neurological: General: No focal deficit present. Mental Status: She is alert and oriented to person, place, and time. ALLERGIES Allergen Reactions Cipro [Ciprofloxaci* rash with 500mg dose Penicillins rash hydrOXYzine HCl (ATARAX) 50 mg tablet Take 1 tablet by mouth at bedtime as needed for itching/rash. hydrocortisone (CORTEF) 10 mg tablet As directed per endocrinology. simvastatin (ZOCOR) 20 mg tablet Take 1 tablet by mouth daily at bedtime. amLODIPine (NORVASC) 5 mg tablet Take 1 tablet by mouth once daily. [facility]. levocetirizine (XYZAL) 5 mg tablet Take 1 tablet by mouth once daily. cholecalciferol (VITAMIN D3) 400 unit tab Take 400 Units by mouth once daily. nitroglycerin sublingual (NITROQUICK) 0.4 mg SL tablet Dissolve 1 tablet under the tongue every 5 minutes as needed. denosumab (PROLIA) 60 mg/mL Inject 1 mL subcutaneously once every [address] Torsten Vann, endocrinology. warfarin (COUMADIN) 2.5 mg tablet Take 1 tablet by mouth once daily. acetaminophen (TYLENOL) 325 mg tablet Take 650 mg by mouth every 6 hours as needed. PAST MEDICAL HISTORY Diagnosis Date Age-related osteoporosis with current pathological fracture with routine healing 01/19/2023 Anemia 08/26/2009 ASHD (arteriosclerotic heart disease) 04/25/2009 Asthma Benign neoplasm of colon 04/26/2005 Tubular adenoma Chronic diarrhea 03/15/2010 Chronic sphenoidal sinusitis 09/15/2003 Closed fracture of bone of right foot 11/08/2022 Collagenous colitis 03/30/2010 Contact dermatitis and other eczema, due to unspecified cause 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Navarre's disease Cystocele, midline 07/23/2007 Diverticulosis of colon (without mention of hemorrhage) DVT (deep jodie (more content not included)... [facility] 01-19-2023 Note HNO ID: [id number] Author: Amos Floyd MD Service: ? Author Type: Physician Type: Progress Notes Filed: 01/19/2023 2:02 PM Note Text: This note was created using [employer]. Subjective Linda Peralta is a 77 year old female. She was doing reasonably well. Her main complaint is itching, rash, and associated insomnia. She was unable to obtain coverage for medications suggested by dermatology. She was taking Xyzal with no noticeable improvement. Her other conditions were stable. She was recovering from a stress fracture of her right foot. Review of Systems Constitutional: Negative for fatigue, fever and unexpected weight change. Respiratory: Negative for cough, shortness of breath and wheezing. Cardiovascular: Negative for chest pain, palpitations and leg swelling. Gastrointestinal: Negative for abdominal pain, diarrhea, nausea and vomiting. Genitourinary: Negative for difficulty urinating and dysuria. Musculoskeletal: Negative. Neurological: Negative for dizziness and headaches. 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 Hypercalcemia Ashd (Arteriosclerotic Heart Disease) Dvt (Deep Venous Thrombosis) (Hcc) 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 Chronic Nonallergic Rhinitis Pure hypercholesterolemia Atopic Neurodermatitis Hypertension Generalized Muscle Weakness Stage 3b Chronic Kidney Disease (Hcc) Hypertensive Kidney Disease With Stage 3b Chronic Kidney Disease (Hcc) Hip Pain Current Outpatient Medications Medication Sig simvastatin (ZOCOR) 20 mg tablet Take 1 tablet by mouth daily at bedtime. amLODIPine (NORVASC) 5 mg tablet Take 1 tablet by mouth once daily. [facility]. levocetirizine (XYZAL) 5 mg tablet Take 1 tablet by mouth once daily. cholecalciferol (VITAMIN D3) 400 unit tab Take 400 Units by mouth once daily. nitroglycerin sublingual (NITROQUICK) 0.4 mg SL tablet Dissolve 1 tablet under the tongue every 5 minutes as needed. denosumab (PROLIA) 60 mg/mL Inject 1 mL subcutaneously once every [address] Torsten Vann, endocrinology. warfarin (COUMADIN) 2.5 mg tablet Take 1 tablet by mouth once daily. hydrocortisone (CORTEF) 10 mg tablet Take 2 tablets by mouth every morning AND 1 tablet every evening. acetaminophen (TYLENOL) 325 mg tablet Take 650 mg by mouth every 6 hours as needed. No current facility-administered medications for this visit. Objective BP 110/66 (BP Site: Left Arm, BP Position: Sitting, BP Cuff Size: Large Adult) Pulse 88 Resp 16 Ht 159 cm (5' 2.6 ) Wt 64.4 kg (142 lb) BMI 25.48 kg/m? Physical Exam Constitutional: General: She is not in acute distress. HENT: Head: Normocephalic. Eyes: General: No scleral icterus. Conjunctiva/sclera: Conjunctivae normal. Cardiovascular: Rate and Rhythm: Normal rate and regular rhythm. Heart sounds: No murmur heard. No gallop. Pulmonary: Breath sounds: Normal breath sounds. No wheezing or rales. Abdominal: Palpations: Abdomen is soft. Tenderness: There is no abdominal tenderness. Musculoskeletal: Right lower leg: No edema. Left lower leg: No edema. Neurological: Mental Status: She is alert. Gait: Gait normal. Psychiatric: Mood and Affect: Mood normal. Component Latest Ref Rng AND Units 01/18/2023 Protein, Total 6.3 - 8.0 g/dL 5.8 (L) Albumin 3.9 - 4.9 g/dL 3.8 (L) Calcium 8.5 - 10.2 mg/dL 9.7 Bilirubin, Total 0.2 - 1.3 mg/dL 0.5 Alkaline Phosphatase 34 - 123 U/L 81 AST 13 - 35 U/L 26 ALT 7 - 38 U/L 19 Glucose 74 - 99 mg/dL 68 (L) BUN 7 - 21 mg/dL 46 (H) Creatinine 0.58 - 0.96 mg/dL 1.82 (H) Sodium 136 - 144 mmol/L 140 Potassium 3.7 - 5.1 mmol/L 3.5 (L) Chloride 97 - 105 mmol/L 107 (H) CO2 22 - 30 mmol/L 24 Anion Gap 9 - 18 mmol/L 9 eGFR >=60 mL/min/1.73mA? 28 (L) WBC 3.70 - 11.00 k/uL 7.32 RBC 3.90 - 5.20 m/uL 5.01 Hemoglobin 11.5 - 15.5 g/dL 14.7 Hematocrit 36.0 - 46.0 % 44.9 MCV 80.0 - 100.0 fL 89.6 MCH 26.0 - 34.0 pg 29.3 MCHC 30.5 - 36.0 g/dL 32.7 RDW-CV 11.5 - 15.0 % 14.7 Platelet Count 150 - 400 k/uL 234 MPV 9.0 - 12.7 fL 10.9 Absolute nRBC <0.01 k/uL <0.01 Cholesterol, Total <200 mg/dL 141 Triglyceride <150 mg/dL 80 HDL Cholesterol >39 mg/dL 63 Non HDL Cholesterol <130 mg/dL 78 Fasting Time hrs 16 VLDL Cholesterol <30 mg/dL 16 TC:HDL Ratio <5.10 2.24 LDL Cholesterol <100 mg/dL 62 LDL:HDL Ratio <2.54 0.98 Assessment and Plan 1. Medicare annual wellness visit, subsequent - ICD9: V70.0, ICD10: Z00.00 (primary diagnosis) See wellness note. 2. Primary hypertension - ICD9: 401.9, ICD10: I10 - Controlled - Continue current medications 3. Pure hypercholesterolemia - ICD9: 272.0, ICD10: E78.00 - Controlled. 4. Atopic neurodermatitis - ICD9: 691.8, ICD10: L20.81 - HYDROXYZINE HCL 50 MG TABLET. Take one(1) tablet daily at bedtime as needed. Discussed medication dosage, usage, goals of therapy, and side effect (more content not included)... [facility] 01-19-2023 Note HNO ID: [id number] Author: Amos Floyd MD Service: ? Author Type: Physician Type: Progress Notes Filed: 01/19/2023 2:02 PM Note Text: Linda Peralta is a 77 year old female here for a Medicare wellness visit. Medicare Health Risk Assessment General Health Good Exercise: Minutes/Day None. Exercise: Days/Week None. Alcohol: Daily Use None. Alcohol: Drinks/Day None. Alcohol: 6 or more drinks None. Feel off balance Yes. Concerns: Teeth/Dentures None. Concerns: Sexual function None. Troubled by feelings None. Frequency: Eating healthy diet Daily. ADLs requiring help None. Safety precautions in home/vehicle Yes. Smoke, vape, chews tobacco None. Difficulty hearing None. Difficulty seeing None. Current Providers Specialists: I have reviewed specialist-related care of the patient in the medical record. Current care team: Patient Care Team: Amos Floyd MD as PCP - General Cardiology-Dr. Marte Nephrology- Dr. Aminata Tarango Marriage And Family Social Worker- Dr. Carpio Endocrinology- Dr. Torsten Vann (osteoporosis), Dermatology- Dr. Leonardo ([facility]) Podiatry- Dr. Butch Lindsey. Medical/Family history review Reviewed and updated problem list, medical/surgical/family/social history, medications, and allergies. Opioid use review Opioid Medications (last 90 days) Some values may be hidden. Unless noted otherwise, only the newest values recorded on each date are displayed. Opioid Medications No data to display. Depression screening Depression Screening PHQ-2 Score PHQ-9 Score 12/20/2021 0 - Depression screening tool completed and reviewed. Based on score and interview, patient is not at risk for depression. Screening tool discussed with patient, and I recommended no further intervention at this time. Cognitive screening Mini Cog Score: 5 Cognitive screening reviewed and no further action needed (score 3-5) Functional Observation Was the patient's timed Up AND Go test unsteady or ? 12 seconds? No Advance Care Planning Patient did not wish or was not able to name a surrogate decision maker or provide an advance care plan Measurements BP 110/66 Pulse 88 Resp 16 Ht 5' 2.6 (1.59m) Wt 142 lb (64.4kg) BMI 25.48 kg/(m2). Additional screenings: Vision Screening Right eye - Without correction: With correction: 20/30 Left eye - Without correction: With correction: 20/200 Both eyes - Without correction: With correction: 20/30 Assessment/Plan Medicare annual wellness visit, subsequent (Z00.00) - Counseled on healthy diet and regular exercise - Fall avoidance information provided - Personalized prevention plan provided [facility] 01-19-2023 History of Present illness Narrative This note was created using [employer]. Subjective Linda Peralta is a 77 year old female. She was doing reasonably well. Her main complaint is itching, rash, and associated insomnia. She was unable to obtain coverage for medications suggested by dermatology. She was taking Xyzal with no noticeable improvement. Her other conditions were stable. She was recovering from a stress fracture of her right foot. Review of Systems Constitutional: Negative for fatigue, fever and unexpected weight change. Respiratory: Negative for cough, shortness of breath and wheezing. Cardiovascular: Negative for chest pain, palpitations and leg swelling. Gastrointestinal: Negative for abdominal pain, diarrhea, nausea and vomiting. Genitourinary: Negative for difficulty urinating and dysuria. Musculoskeletal: Negative. Neurological: Negative for dizziness and headaches. 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 Hypercalcemia Ashd (Arteriosclerotic Heart Disease) Dvt (Deep Venous Thrombosis) (Hcc) 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 Chronic Nonallergic Rhinitis Pure hypercholesterolemia Atopic Neurodermatitis Hypertension Generalized Muscle Weakness Stage 3b Chronic Kidney Disease (Hcc) Hypertensive Kidney Disease With Stage 3b Chronic Kidney Disease (Hcc) Hip Pain Current Outpatient Medications Medication Sig simvastatin (ZOCOR) 20 mg tablet Take 1 tablet by mouth daily at bedtime. amLODIPine (NORVASC) 5 mg tablet Take 1 tablet by mouth once daily. [facility]. levocetirizine (XYZAL) 5 mg tablet Take 1 tablet by mouth once daily. cholecalciferol (VITAMIN D3) 400 unit tab Take 400 Units by mouth once daily. nitroglycerin sublingual (NITROQUICK) 0.4 mg SL tablet Dissolve 1 tablet under the tongue every 5 minutes as needed. denosumab (PROLIA) 60 mg/mL Inject 1 mL subcutaneously once every [address] Torsten Vann, endocrinology. warfarin (COUMADIN) 2.5 mg tablet Take 1 tablet by mouth once daily. hydrocortisone (CORTEF) 10 mg tablet Take 2 tablets by mouth every morning AND 1 tablet every evening. acetaminophen (TYLENOL) 325 mg tablet Take 650 mg by mouth every 6 hours as needed. No current facility-administered medications for this visit. Objective BP 110/66 (BP Site: Left Arm, BP Position: Sitting, BP Cuff Size: Large Adult) Pulse 88 Resp 16 Ht 159 cm (5' 2.6 ) Wt 64.4 kg (142 lb) BMI 25.48 kg/m Physical Exam Constitutional: General: She is not in acute distress. HENT: Head: Normocephalic. Eyes: General: No scleral icterus. Conjunctiva/sclera: Conjunctivae normal. Cardiovascular: Rate and Rhythm: Normal rate and regular rhythm. Heart sounds: No murmur heard. No gallop. Pulmonary: Breath sounds: Normal breath sounds. No wheezing or rales. Abdominal: Palpations: Abdomen is soft. Tenderness: There is no abdominal tenderness. Musculoskeletal: Right lower leg: No edema. Left lower leg: No edema. Neurological: Mental Status: She is alert. Gait: Gait normal. Psychiatric: Mood and Affect: Mood normal. Component Latest Ref Rng & Units 01/18/2023 Protein, Total 6.3 - 8.0 g/dL 5.8 (L) Albumin 3.9 - 4.9 g/dL 3.8 (L) Calcium 8.5 - 10.2 mg/dL 9.7 Bilirubin, Total 0.2 - 1.3 mg/dL 0.5 Alkaline Phosphatase 34 - 123 U/L 81 AST 13 - 35 U/L 26 ALT 7 - 38 U/L 19 Glucose 74 - 99 mg/dL 68 (L) BUN 7 - 21 mg/dL 46 (H) Creatinine 0.58 - 0.96 mg/dL 1.82 (H) Sodium 136 - 144 mmol/L 140 Potassium 3.7 - 5.1 mmol/L 3.5 (L) Chloride 97 - 105 mmol/L 107 (H) CO2 22 - 30 mmol/L 24 Anion Gap 9 - 18 mmol/L 9 eGFR >=60 mL/min/1.73m 28 (L) WBC 3.70 - 11.00 k/uL 7.32 RBC 3.90 - 5.20 m/uL 5.01 Hemoglobin 11.5 - 15.5 g/dL 14.7 Hematocrit 36.0 - 46.0 % 44.9 MCV 80.0 - 100.0 fL 89.6 MCH 26.0 - 34.0 pg 29.3 MCHC 30.5 - 36.0 g/dL 32.7 RDW-CV 11.5 - 15.0 % 14.7 Platelet Count 150 - 400 k/uL 234 MPV 9.0 - 12.7 fL 10.9 Absolute nRBC <0.01 k/uL <0.01 Cholesterol, Total <200 mg/dL 141 Triglyceride <150 mg/dL 80 HDL Cholesterol >39 mg/dL 63 Non HDL Cholesterol <130 mg/dL 78 Fasting Time hrs 16 VLDL Cholesterol <30 mg/dL 16 TC:HDL Ratio <5.10 2.24 LDL Cholesterol <100 mg/dL 62 LDL:HDL Ratio <2.54 0.98 Assessment and Plan 1. Medicare annual wellness visit, subsequent - ICD9: V70.0, ICD10: Z00.00 (primary diagnosis) See wellness note. 2. Primary hypertension - ICD9: 401.9, ICD10: I10 - Controlled - Continue current medications 3. Pure hypercholesterolemia - ICD9: 272.0, ICD10: E78.00 - Controlled. 4. Atopic neurodermatitis - ICD9: 691.8, ICD10: L20.81 - HYDROXYZINE HCL 50 MG TABLET. Take one(1) tablet daily at bedtime as needed. Discussed medication dosage, usage, goals of therapy, and side effects. If effective, she can call for refills and stop Xyzal. 5. Adrenal hypofunction (HCC) - ICD9: 255.41, ICD10: E27.[address] Aisha Vann. - HYDROCORTISONE 10 MG TABLET 6. Disorder of autonomic nervous system - ICD9: 337.9, ICD10: G90.9 See above. 7. Stage 3b chronic kidney disease (HCC) - ICD9: 585.3, ICD10: N18.32 - eGFR: 28 Stable - Counseled on avoiding NSAIDs, adequate hydration 8. Age-related osteoporosis with current pathological fracture with routine healing - ICD9: V54.29, 733.01, ICD10: M80.00XD - continue tx with PROLIA per Dr. Aisha Vann. 9. Need for COVID-19 vaccine - ICD9: V04.89, ICD10: Z23 - PFIZER-BIONTECH COVID-19 VACCINE (2022- [place]) AGE 12+ YR 10. Hypercalcemia - ICD9: 275.42, ICD10: E83.52 - Controlled. - HYDROCORTISONE 10 MG TABLET Amos Floyd MD Linda Peralta is a 77 year old female here for a Medicare wellness visit. Medicare Health Risk Assessment General Health Good Exercise: Minutes/Day None. Exercise: Days/Week None. Alcohol: Daily Use None. Alcohol: Drinks/Day None. Alcohol: 6 or more drinks None. Feel off balance Yes. Concerns: Teeth/Dentures None. Concerns: Sexual function None. Troubled by feelings None. Frequency: Eating healthy diet Daily. ADLs requiring help None. Safety precautions in home/vehicle Yes. Smoke, vape, chews tobacco None. Difficulty hearing None. Difficulty seeing None. Current Providers Specialists: I have reviewed specialist-related care of the patient in the medical record. Current care team: Patient Care Team: Amos Floyd MD as PCP - General Cardiology-Dr. Marte Nephrology- Dr. Aminata Tarango Marriage And Family Social Worker- Dr. Carpio Endocrinology- Dr. Torsten Vann (osteoporosis), Dermatology- Dr. Leonardo ([facility]) Podiatry- Dr. Butch Lindsey. Medical/Family history review Reviewed and updated problem list, medical/surgical/family/social history, medications, and allergies. Opioid use review Opioid Medications (last 90 days) Some values may be hidden. Unless noted otherwise, only the newest values recorded on each date are displayed. Opioid Medications No data to display. Depression screening Depression Screening PHQ-2 Score PHQ-9 Score 12/20/2021 0 - Depression screening tool completed and reviewed. Based on score and interview, patient is not at risk for depression. Screening tool discussed with patient, and I recommended no further intervention at this time. Cognitive screening Mini Cog Score: 5 Cognitive screening reviewed and no further action needed (score 3-5) Functional Observation Was the patient's timed Up & Go test unsteady or ? 12 seconds? No Advance Care Planning Patient did not wish or was not able to name a surrogate decision maker or provide an advance care plan Measurements BP 110/66 Pulse 88 Resp 16 Ht 5' 2.6 (1.59m) Wt 142 lb (64.4kg) BMI 25.48 kg/(m^2). Additional screenings: Vision Screening Right eye - Without correction: With correction: 20/30 Left eye - Without correction: With correction: 20/200 Both eyes - Without correction: With correction: 20/30 Assessment/Plan Medicare annual wellness visit, subsequent (Z00.00) - Counseled on healthy diet and regular exercise - Fall avoidance information provided - Personalized prevention plan provided documented in this encounter [facility] 01-18-2023 Note HNO ID: [id number] Author: Amy Gates RT(R) Service: ? Author Type: Technologist Type: Progress Notes Filed: 01/18/2023 10:53 AM Note Text: Radiology Service Progress Note PATIENT NAME: Linda Peralta DATE OF SERVICE: January 18, 2023 TIME: 10:53 AM PATIENT IDENTITY VERIFICATION COMPLETED USING TWO (2) IDENTIFIERS: Name and Date of confirmed by patient verbally. FALL SCREENING: Has the patient had 2 falls in the last year or 1 fall with injury or currently using an Ambulatory Assistive Device (Walker, Cane, Wheelchair, Crutches, etc.)? No PATIENT GENDER DATA: Female. status: : No status: NO. PATIENT RELEVANT IMPLANT DATA REVIEWED: Not Applicable RADIOLOGY DEPARTMENT: General X-ray: Exam(s) Completed: Lower Extremity X-Ray(s): Foot, Right PERIPHERAL IV DATA: Not applicable SIGNED BY: RT Daniel(R) January 18, 2023 10:53 AM [facility] 01-18-2023 History of Present illness Narrative Radiology Service Progress Note PATIENT NAME: Linda Peralta DATE OF SERVICE: January 18, 2023 TIME: 10:53 AM PATIENT IDENTITY VERIFICATION COMPLETED USING TWO (2) IDENTIFIERS: Name and Date of confirmed by patient verbally. FALL SCREENING: Has the patient had 2 falls in the last year or 1 fall with injury or currently using an Ambulatory Assistive Device (Walker, Cane, Wheelchair, Crutches, etc.)? No PATIENT GENDER DATA: Female. status: : No status: NO. PATIENT RELEVANT IMPLANT DATA REVIEWED: Not Applicable RADIOLOGY DEPARTMENT: General X-ray: Exam(s) Completed: Lower Extremity X-Ray(s): Foot, Right PERIPHERAL IV DATA: Not applicable SIGNED BY: RT Daniel(R) January 18, 2023 10:53 AM documented in this encounter [facility] 12-19-2022 Note HNO ID: [id number] Author: Geraldo Lindsey Service: ? Author Type: Physician Type: Progress Notes Filed: 12/19/2022 12:57 PM Note Text: FOLLOW UP PODIATRIC OFFICE VISIT Chief Complaint: This 77 year old who presents for follow up:right 5th metatarsal stress fracture Patient presents to clinic for follow-up fracture of right 5th metatarsal Using boot Has no pain Has new xrays Does express concern about boot with upcoming inclement weather. Occasional pain to ball of b/l feet. PAIN EVALUATION No data found in the last 1 encounters. Hemoglobin A1C Date Value Ref Range Status 03/07/2019 5.3 4.3 - 5.6 % Final Comment: [place] [employer] guidelines indicate that patients with HgbA1c in the range 5.7-6.4% are at increased risk for development of diabetes, and intervention by lifestyle modification may be beneficial. HgbA1c greater or equal to 6.5% is considered diagnostic of diabetes. PCP: Amos Floyd MD PAST MEDICAL HISTORY Diagnosis Date Anemia 08/26/2009 ASHD (arteriosclerotic heart disease) 04/25/2009 Asthma Benign neoplasm of colon 04/26/2005 Tubular adenoma Chronic diarrhea 03/15/2010 Chronic sphenoidal sinusitis 09/15/2003 Collagenous colitis 03/30/2010 Contact dermatitis and other eczema, due to unspecified cause 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Kyler's disease Cystocele, midline 07/23/2007 Diverticulosis of colon (without mention of hemorrhage) DVT (deep venous thrombosis) (HCC) 03/23/2012 DVT of lower extremity (deep venous thrombosis) (HCC) 03/27/09 Esophageal reflux Gallstones 03/06/2016 Hypercalcemia 03/19/2009 Hypertension NSTEMI (non-ST elevated myocardial infarction) (HCC) April 27, 2009 Cardiac cath normal Other adrenal hypofunction PMH - PAST MEDICAL HISTORY OF Left kidney donated Psoriasis and similar disorder Pure hypercholesterolemia 02/17/2015 Right renal mass 03/27/09 Snoring Syncope Tonic pupillary reaction Unspecified disorder of autonomic nervous system 10/20/2003 Unspecified disorder resulting from impaired renal function 04/26/2005 Unspecified sinusitis (chronic) Current Outpatient Medications Medication Sig simvastatin (ZOCOR) 20 mg tablet Take 1 tablet by mouth daily at bedtime. amLODIPine (NORVASC) 5 mg tablet Take 1 tablet by mouth once daily. [facility]. levocetirizine (XYZAL) 5 mg tablet Take 1 tablet by mouth once daily. cholecalciferol (VITAMIN D3) 400 unit tab Take 400 Units by mouth once daily. nitroglycerin sublingual (NITROQUICK) 0.4 mg SL tablet Dissolve 1 tablet under the tongue every 5 minutes as needed. denosumab (PROLIA) 60 mg/mL Inject 1 mL subcutaneously once every [address] Tosrten Vann, endocrinology. warfarin (COUMADIN) 2.5 mg tablet Take 1 tablet by mouth once daily. hydrocortisone (CORTEF) 10 mg tablet Take 2 tablets by mouth every morning AND 1 tablet every evening. acetaminophen (TYLENOL) 325 mg tablet Take 650 mg by mouth every 6 hours as needed. No current facility-administered medications for this visit. ALLERGIES Allergen Reactions Cipro [Ciprofloxaci* rash with 500mg dose Penicillins rash PAST SURGICAL HISTORY Procedure Laterality Date CATARACT EXTRACTION HX Bilateral 10/2017 and October 2017 COLONOSCOPY W/BIOPSY 03/25/2016 COLONOSCOPY FLX DX W/COLLJ SPEC WHEN PFRMD 05/12/2004 Colonoscopy COLONOSCOPY FLX DX W/COLLJ SPEC WHEN PFRMD 09/20/2007 Colonoscopy COLONOSCOPY FLX DX W/COLLJ SPEC WHEN PFRMD 05/11/2009 Colonoscopy COLONOSCOPY FLX DX W/COLLJ SPEC WHEN PFRMD 03/26/2010 Inpatient at [facility] ESOPHAGOGASTRODUODENOSCOPY TRANSORAL DIAGNOSTIC 02/2002 EGD ESOPHAGOGASTRODUODENOSCOPY TRANSORAL DIAGNOSTIC 05/01/2009 EGD ESOPHAGOGASTRODUODENOSCOPY TRANSORAL DIAGNOSTIC 11/18/2009 EGD, EXC CYST/ABERRANT BREAST TISSUE OPEN 1/> LESION 1960 benign IVC FILTER PERCUTANEOUS 03/31/2009 LAPS SURG CHOLECYSTECTOMY W/CHOLANGIOGRAPHY 03/30/2016 LEFT HEART CATH,PERCUTANEOUS 04/27/2009 Cardiac cath, L heart NEPHRECTOMY PARTIAL 04/2000 Nephrectomy, left NEPHRECTOMY PARTIAL 04/14/09 Right - metanephric adenoma (benign) OOPHORECTOMY PARTIAL/TOTAL UNI/BI Left 1973 Ovarian cystectomy PERCUTANEOUS DRAINAGE RENAL/PERIRENAL ABSC 05/11/2009 Right urinoma SINUSOTOMY SPHENOID W/WO BIOPSY 09/2001 SLING OPER STRES INCONTINENCE 1989 bladder suspension TOTAL ABDOMINAL HYSTERECT W/WO RMVL TUBE OVARY 1979 Hysterectomy, ARIEL, BSO Physical Exam: OBJECTIVE: Constitutional: Pt is a well developed 77 year old female who is alert, oriented, cooperative and in no apparent distress. Eyes: Following during examination. No redness or drainage. Respiratory: RR normal and nonlabored. Even breathing. No evidence of distress. Psychology: Patient is engaged during conversation. Normal affect and mood. Does not appear depressed or anxious. NVSI unchanged from previous visit. Dermatological: Nails 1-5 b/l are normal. Webspaces clean and dry 1-4 b/l. S (more content not included)... [facility] 12-19-2022 Note HNO ID: [id number] Author: Julieta Avendano LPN Service: ? Author Type: LICENSED NURSE Type: Progress Notes Filed: 12/19/2022 12:57 PM Note Text: AMB ROOMING INTAKE FLOWSHEET DATA Patient presents with: Right Foot - Established Patient, Follow Up Julieta Avendano LPN [facility] 12-19-2022 History of Present illness Narrative FOLLOW UP PODIATRIC OFFICE VISIT Chief Complaint: This 77 year old who presents for follow up:right 5th metatarsal stress fracture Patient presents to clinic for follow-up fracture of right 5th metatarsal Using boot Has no pain Has new xrays Does express concern about boot with upcoming inclement weather. Occasional pain to ball of b/l feet. PAIN EVALUATION No data found in the last 1 encounters. Hemoglobin A1C Date Value Ref Range Status 03/07/2019 5.3 4.3 - 5.6 % Final Comment: [place] [employer] guidelines indicate that patients with HgbA1c in the range 5.7-6.4% are at increased risk for development of diabetes, and intervention by lifestyle modification may be beneficial. HgbA1c greater or equal to 6.5% is considered diagnostic of diabetes. PCP: Amos Floyd MD PAST MEDICAL HISTORY Diagnosis Date Anemia 08/26/2009 ASHD (arteriosclerotic heart disease) 04/25/2009 Asthma Benign neoplasm of colon 04/26/2005 Tubular adenoma Chronic diarrhea 03/15/2010 Chronic sphenoidal sinusitis 09/15/2003 Collagenous colitis 03/30/2010 Contact dermatitis and other eczema, due to unspecified cause 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Kyler's disease Cystocele, midline 07/23/2007 Diverticulosis of colon (without mention of hemorrhage) DVT (deep venous thrombosis) ([facility]) 03/23/2012 DVT of lower extremity (deep venous thrombosis) ([facility]) 03/27/09 Esophageal reflux Gallstones 03/06/2016 Hypercalcemia 03/19/2009 Hypertension NSTEMI (non-ST elevated myocardial infarction) ([facility]) April 27, 2009 Cardiac cath normal Other adrenal hypofunction PMH - PAST MEDICAL HISTORY OF Left kidney donated Psoriasis and similar disorder Pure hypercholesterolemia 02/17/2015 Right renal mass 03/27/09 Snoring Syncope Tonic pupillary reaction Unspecified disorder of autonomic nervous system 10/20/2003 Unspecified disorder resulting from impaired renal function 04/26/2005 Unspecified sinusitis (chronic) Current Outpatient Medications Medication Sig simvastatin (ZOCOR) 20 mg tablet Take 1 tablet by mouth daily at bedtime. amLODIPine (NORVASC) 5 mg tablet Take 1 tablet by mouth once daily. [facility]. levocetirizine (XYZAL) 5 mg tablet Take 1 tablet by mouth once daily. cholecalciferol (VITAMIN D3) 400 unit tab Take 400 Units by mouth once daily. nitroglycerin sublingual (NITROQUICK) 0.4 mg SL tablet Dissolve 1 tablet under the tongue every 5 minutes as needed. denosumab (PROLIA) 60 mg/mL Inject 1 mL subcutaneously once every [address] Torsten Vann, endocrinology. warfarin (COUMADIN) 2.5 mg tablet Take 1 tablet by mouth once daily. hydrocortisone (CORTEF) 10 mg tablet Take 2 tablets by mouth every morning AND 1 tablet every evening. acetaminophen (TYLENOL) 325 mg tablet Take 650 mg by mouth every 6 hours as needed. No current facility-administered medications for this visit. ALLERGIES Allergen Reactions Cipro [Ciprofloxaci* rash with 500mg dose Penicillins rash PAST SURGICAL HISTORY Procedure Laterality Date CATARACT EXTRACTION HX Bilateral 10/2017 and October 2017 COLONOSCOPY W/BIOPSY 03/25/2016 COLONOSCOPY FLX DX W/COLLJ SPEC WHEN PFRMD 05/12/2004 Colonoscopy COLONOSCOPY FLX DX W/COLLJ SPEC WHEN PFRMD 09/20/2007 Colonoscopy COLONOSCOPY FLX DX W/COLLJ SPEC WHEN PFRMD 05/11/2009 Colonoscopy COLONOSCOPY FLX DX W/COLLJ SPEC WHEN PFRMD 03/26/2010 Inpatient at [facility] ESOPHAGOGASTRODUODENOSCOPY TRANSORAL DIAGNOSTIC 02/2002 EGD ESOPHAGOGASTRODUODENOSCOPY TRANSORAL DIAGNOSTIC 05/01/2009 EGD ESOPHAGOGASTRODUODENOSCOPY TRANSORAL DIAGNOSTIC 11/18/2009 EGD, EXC CYST/ABERRANT BREAST TISSUE OPEN 1/ LESION 1960 benign IVC FILTER PERCUTANEOUS 03/31/2009 LAPS SURG CHOLECYSTECTOMY W/CHOLANGIOGRAPHY 03/30/2016 LEFT HEART CATH,PERCUTANEOUS 04/27/2009 Cardiac cath, L heart NEPHRECTOMY PARTIAL 04/2000 Nephrectomy, left NEPHRECTOMY PARTIAL 04/14/09 Right - metanephric adenoma (benign) OOPHORECTOMY PARTIAL/TOTAL UNI/BI Left 1973 Ovarian cystectomy PERCUTANEOUS DRAINAGE RENAL/PERIRENAL ABSC 05/11/2009 Right urinoma SINUSOTOMY SPHENOID W/WO BIOPSY 09/2001 SLING OPER STRES INCONTINENCE 1989 bladder suspension TOTAL ABDOMINAL HYSTERECT W/WO RMVL TUBE OVARY 1979 Hysterectomy, ARIEL, BSO Physical Exam: OBJECTIVE: Constitutional: Pt is a well developed 77 year old female who is alert, oriented, cooperative and in no apparent distress. Eyes: Following during examination. No redness or drainage. Respiratory: RR normal and nonlabored. Even breathing. No evidence of distress. Psychology: Patient is engaged during conversation. Normal affect and mood. Does not appear depressed or anxious. NVSI unchanged from previous visit. Dermatological: Nails 1-5 b/l are normal. Webspaces clean and dry 1-4 b/l. Skin appears well hydrated and supple. good color, texture, turgor. No open lesions present. No callosities present. Musculoskeletal/Orthopaedic: Patient has no pain to palpation of right fifth metatarsal Xrays of right foot reviewed. Incresaed callus formation consistent with healing of 5th metatarsal fracture Mild pain to ball of b/l foot ASSESSMENT: Closed displaced fracture of fifth metatarsal bone of right foot, initial encounter (primary encounter diagnosis) PLAN: Reviewed xrays of right foot. Healing is noted Would continue with boot ideally. If weather changes and she has concern with boot, could use firm sole sneaker and gel inserts Gel inserts dispensed today Will repeat xrays in 1 month Discussed possible neuroma of b/l 2nd interspace. Recommend gel inserts. If pain fails to improve, consider injection. Geraldo Lindsey DPM AMB ROOMING INTAKE FLOWSHEET DATA Patient presents with: Right Foot - Established Patient, Follow Up Julieta Avendano LPN documented in this encounter [facility] 12-19-2022 Note HNO ID: [id number] Author: Israel Lofton RT(R) Service: ? Author Type: Mandarin Speaking Nanny Type: Progress Notes Filed: 12/19/2022 10:57 AM Note Text: Radiology Service Progress Note PATIENT NAME: Linda Peralta DATE OF SERVICE: December 19, 2022 TIME: 10:44 AM PATIENT IDENTITY VERIFICATION COMPLETED USING TWO (2) IDENTIFIERS: Name and Date of confirmed by patient verbally. FALL SCREENING: Has the patient had 2 falls in the last year or 1 fall with injury or currently using an Ambulatory Assistive Device (Walker, Cane, Wheelchair, Crutches, etc.)? No PATIENT GENDER DATA: Female. status: : No status: NO. PATIENT RELEVANT IMPLANT DATA REVIEWED: Yes RADIOLOGY DEPARTMENT: General X-ray: Exam(s) Completed: Lower Extremity X-Ray(s): Foot, Right PERIPHERAL IV DATA: Not applicable SIGNED BY: RT Kurt(R) December 19, 2022 10:44 AM [facility] 12-19-2022 Instructions Geraldo Lindsey - 12/19/2022 12:24 PM EDT Powerstep Original Full length. Can purchase at [employer] here in [place], [employer] in [place] or [place]. Also can find in [place] in [facility]. Powersteps can also be purchased online, starting around $45.00 If you have a metatarsal or dancer pad for your feet apply the pad directly to the insole so you can interchange between your shoes. Find a shoe with a removable insole and take this out and replace with your powerstep insole. Always bring powersteps with you when shopping for shoes so that you can make sure that everything fits well together documented in this encounter [facility] 12-02-2022 Miscellaneous Notes Pt last seen pcp 10/26/22 Next appt is 01/19/23. Patient has been identified by name and date of : Yes Requested Prescriptions Pending Prescriptions Disp Refills simvastatin (ZOCOR) 20 mg tablet 90 tablet 3 Sig: Take 1 tablet by mouth daily at bedtime. RX INSTRUCTIONS: Patient aware RX will be sent to pharmacy. No need to notify patient. Kylah mcdermott documented in this encounter [facility] 12-01-2022 Note HNO ID: [id number] Author: Betsey Lantigua RT(R) Service: Radiology Author Type: Technologist Type: Progress Notes Filed: 12/01/2022 11:48 AM Note Text: Radiology Service Progress Note PATIENT NAME: Linda Peralta DATE OF SERVICE: December 01, 2022 TIME: 11:40 AM PATIENT IDENTITY VERIFICATION COMPLETED USING TWO (2) IDENTIFIERS: Name and Date of confirmed by patient verbally. FALL SCREENING: Has the patient had 2 falls in the last year or 1 fall with injury or currently using an Ambulatory Assistive Device (Walker, Cane, Wheelchair, Crutches, etc.)? No PATIENT GENDER DATA: Female. status: : No status: NO. PATIENT RELEVANT IMPLANT DATA REVIEWED: Not Applicable RADIOLOGY DEPARTMENT: General X-ray: Exam(s) Completed: Lower Extremity X-Ray(s): Foot, Right PERIPHERAL IV DATA: Not applicable SIGNED BY: RT Doug(R) December 01, 2022 11:40 AM [facility] 12-01-2022 History of Present illness Narrative Radiology Service Progress Note PATIENT NAME: Linda Peralta DATE OF SERVICE: December 01, 2022 TIME: 11:40 AM PATIENT IDENTITY VERIFICATION COMPLETED USING TWO (2) IDENTIFIERS: Name and Date of confirmed by patient verbally. FALL SCREENING: Has the patient had 2 falls in the last year or 1 fall with injury or currently using an Ambulatory Assistive Device (Walker, Cane, Wheelchair, Crutches, etc.)? No PATIENT GENDER DATA: Female. status: : No status: NO. PATIENT RELEVANT IMPLANT DATA REVIEWED: Not Applicable RADIOLOGY DEPARTMENT: General X-ray: Exam(s) Completed: Lower Extremity X-Ray(s): Foot, Right PERIPHERAL IV DATA: Not applicable SIGNED BY: RT Doug(R) December 01, 2022 11:40 AM documented in this encounter [facility] 11-17-2022 Note HNO ID: [id number] Author: Geraldo Lindsey Service: ? Author Type: Physician Type: Progress Notes Filed: 11/22/2022 7:52 AM Note Text: Initial Podiatric Office Visit: Chief Complaint: This 77 year old female who presents with chief complaint:fracture of right 5th metatarsal HPI Patient presents to clinic for evaluation of right foot. Patient states about one month ago, she started experiencing pain in right foot. She does not recall any injury. She states that she suffers from arthritic hips and the L>R. Patient states because of the left hip pain, she has been applying more weight to the right foot. As a result, she started having pain. She went to therapy. Was told to get an xray. Had xray of the right foot that reveals fracture of right 5th metatarsal. PAIN EVALUATION 11/17/2022 1110 Pain Level: 5 Pain Location: Foot-Right Description: Sore Duration Amount of Time: 1 Duration Units: Months Frequency: Intermittent Intervention/Comfort measure: Reposition;Relaxation;Medication Hemoglobin A1C (%) Date Value 03/07/2019 5.3 02/24/2018 5.7 02/27/2017 5.8 04/25/2009 5.8 07/30/2001 5.3 PCP: Amos Floyd MD PAST MEDICAL HISTORY Diagnosis Date Anemia 08/26/2009 ASHD (arteriosclerotic heart disease) 04/25/2009 Asthma Benign neoplasm of colon 04/26/2005 Tubular adenoma Chronic diarrhea 03/15/2010 Chronic sphenoidal sinusitis 09/15/2003 Collagenous colitis 03/30/2010 Contact dermatitis and other eczema, due to unspecified cause 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Kyler's disease Cystocele, midline 07/23/2007 Diverticulosis of colon (without mention of hemorrhage) DVT (deep venous thrombosis) ([facility]) 03/23/2012 DVT of lower extremity (deep venous thrombosis) ([facility]) 03/27/09 Esophageal reflux Gallstones 03/06/2016 Hypercalcemia 03/19/2009 Hypertension NSTEMI (non-ST elevated myocardial infarction) ([facility]) April 27, 2009 Cardiac cath normal Other adrenal hypofunction PMH - PAST MEDICAL HISTORY OF Left kidney donated Psoriasis and similar disorder Pure hypercholesterolemia 02/17/2015 Right renal mass 03/27/09 Snoring Syncope Tonic pupillary reaction Unspecified disorder of autonomic nervous system 10/20/2003 Unspecified disorder resulting from impaired renal function 04/26/2005 Unspecified sinusitis (chronic) Current Outpatient Medications Medication Sig amLODIPine (NORVASC) 5 mg tablet Take 1 tablet by mouth once daily. [facility]. levocetirizine (XYZAL) 5 mg tablet Take 1 tablet by mouth once daily. simvastatin (ZOCOR) 20 mg tablet Take 1 tablet by mouth daily at bedtime. cholecalciferol (VITAMIN D3) 400 unit tab Take 400 Units by mouth once daily. nitroglycerin sublingual (NITROQUICK) 0.4 mg SL tablet Dissolve 1 tablet under the tongue every 5 minutes as needed. denosumab (PROLIA) 60 mg/mL Inject 1 mL subcutaneously once every [address] Torsten Vann, endocrinology. warfarin (COUMADIN) 2.5 mg tablet Take 1 tablet by mouth once daily. hydrocortisone (CORTEF) 10 mg tablet Take 2 tablets by mouth every morning AND 1 tablet every evening. acetaminophen (TYLENOL) 325 mg tablet Take 650 mg by mouth every 6 hours as needed. No current facility-administered medications for this visit. ALLERGIES Allergen Reactions Cipro [Ciprofloxaci* rash with 500mg dose Penicillins rash PAST SURGICAL HISTORY Procedure Laterality Date CATARACT EXTRACTION HX Bilateral 10/2017 and October 2017 COLONOSCOPY W/BIOPSY 03/25/2016 COLONOSCOPY FLX DX W/COLLJ SPEC WHEN PFRMD 05/12/2004 Colonoscopy COLONOSCOPY FLX DX W/COLLJ SPEC WHEN PFRMD 09/20/2007 Colonoscopy COLONOSCOPY FLX DX W/COLLJ SPEC WHEN PFRMD 05/11/2009 Colonoscopy COLONOSCOPY FLX DX W/COLLJ SPEC WHEN PFRMD 03/26/2010 Inpatient at [facility] ESOPHAGOGASTRODUODENOSCOPY TRANSORAL DIAGNOSTIC 02/2002 EGD ESOPHAGOGASTRODUODENOSCOPY TRANSORAL DIAGNOSTIC 05/01/2009 EGD ESOPHAGOGASTRODUODENOSCOPY TRANSORAL DIAGNOSTIC 11/18/2009 EGD, EXC CYST/ABERRANT BREAST TISSUE OPEN LESION 1960 benign IVC FILTER PERCUTANEOUS 03/31/2009 LAPS SURG CHOLECYSTECTOMY W/CHOLANGIOGRAPHY 03/30/2016 LEFT HEART CATH,PERCUTANEOUS 04/27/2009 Cardiac cath, L heart NEPHRECTOMY PARTIAL 04/2000 Nephrectomy, left NEPHRECTOMY PARTIAL 04/14/09 Right - metanephric adenoma (benign) OOPHORECTOMY PARTIAL/TOTAL UNI/BI Left 1973 Ovarian cystectomy PERCUTANEOUS DRAINAGE RENAL/PERIRENAL ABSC 05/11/2009 Right urinoma SINUSOTOMY SPHENOID W/WO BIOPSY 09/2001 SLING OPER STRES INCONTINENCE 1989 bladder suspension TOTAL ABDOMINAL HYSTERECT W/WO RMVL TUBE OVARY 1979 Hysterectomy, ARIEL, BSO FAMILY HISTORY Problem Relation Age of Onset Coronary Artery Disease Mother [place] at 87y.o. Hypertension Mother Stroke Father Coronary Artery Disease Father sudden at 85y.o. Hypertension Sister COPD Sister Clotting Disorder Sister pulmonary embolism Kidney Disease Brother dec.sepsis, kidney (more content not included)... [facility] 11-17-2022 Note HNO ID: [id number] Author: Julieta Avendano LPN Service: ? Author Type: LICENSED NURSE Type: Progress Notes Filed: 11/22/2022 7:52 AM Note Text: AMB ROOMING INTAKE FLOWSHEET DATA Pain Pain Level: 5 Pain Location: Foot-Right Description: Sore Duration Amount of Time: 1 Duration Units: Months Frequency: Intermittent Intervention/Comfort measure: Reposition, Relaxation, Medication Patient presents with: Right Foot - New, Pain, Fracture, Swelling Julieta Avendano LPN [facility] 11-08-2022 Note HNO ID: [id number] Author: Israel Lofton RT(R) Service: ? Author Type: Mandarin Speaking Nanny Type: Progress Notes Filed: 11/08/2022 11:27 AM Note Text: Radiology Service Progress Note PATIENT NAME: Linda Peralta DATE OF SERVICE: November 08, 2022 TIME: 11:27 AM PATIENT IDENTITY VERIFICATION COMPLETED USING TWO (2) IDENTIFIERS: Name and Date of confirmed by patient verbally. FALL SCREENING: Has the patient had 2 falls in the last year or 1 fall with injury or currently using an Ambulatory Assistive Device (Walker, Cane, Wheelchair, Crutches, etc.)? Yes, Patient High Risk for Falls What interventions were put in place to prevent falls during this visit? Instructed Patient to Call for Help if Needed, Offered Assistance with Transfers/Clothing, Instructed Patient to Remain Seated (Not on Exam Table) Until Exam, and Increased Observations by Caregivers PATIENT GENDER DATA: Female. status: : No status: NO. PATIENT RELEVANT IMPLANT DATA REVIEWED: Yes RADIOLOGY DEPARTMENT: General X-ray: Exam(s) Completed: Lower Extremity X-Ray(s): Foot, Right PERIPHERAL IV DATA: Not applicable SIGNED BY: RT Kurt(R) November 08, 2022 11:27 AM [facility] 11-08-2022 Note HNO ID: [id number] Author: Jacinda Mccrary APRN.OUTSIDE PHYSICAL DAMAGE APPRAISER Service: ? Author Type: Nurse Practitioner Type: Progress Notes Filed: 11/08/2022 12:14 PM Note Text: This note was created using NoteWriter. Subjective Linda Peralta is a 77 year old female. 77 year old female with PMH HTN, CKD, DVT, and PE (on daily Coumadin) presents for right foot. Acute onset yesterday (although she states that has has had pain off and on for quite some time) Right foot Lateral aspect Sharp Intermittent swelling. Denies known trauma or injury. Used x 2 Tylenol arthris this morning. Endorses she started using a cane afraid it will give out Of note she is in PT for hip pain. The PT recommended she come to be evaluated for foot pain. The history is provided by the patient. No parish visitor was used. Pain (foot) Pain location: right foot. This is a recurrent problem. The current episode started more than 1 month ago. There has been no history of extremity trauma. The problem occurs constantly. The problem has been waxing and waning. The quality of the pain is described as sharp. The pain is at a severity of 5/10. The pain is moderate. Associated symptoms include joint swelling. Pertinent negatives include no fever, inability to bear weight, itching, joint locking, limited range of motion, numbness, stiffness or tingling. The symptoms are aggravated by activity and standing. She has tried nothing for the symptoms. The treatment provided no relief. Family history does not include gout or rheumatoid arthritis. Her past medical history is significant for osteoarthritis. There is no history of diabetes, gout or rheumatoid arthritis. PAST MEDICAL HISTORY Diagnosis Date Anemia 08/26/2009 ASHD (arteriosclerotic heart disease) 04/25/2009 Asthma Benign neoplasm of colon 04/26/2005 Tubular adenoma Chronic diarrhea 03/15/2010 Chronic sphenoidal sinusitis 09/15/2003 Collagenous colitis 03/30/2010 Contact dermatitis and other eczema, due to unspecified cause 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Navarre's disease Cystocele, midline 07/23/2007 Diverticulosis of colon (without mention of hemorrhage) DVT (deep venous thrombosis) ([facility]) 03/23/2012 DVT of lower extremity (deep venous thrombosis) ([facility]) 03/27/09 Esophageal reflux Gallstones 03/06/2016 Hypercalcemia 03/19/2009 Hypertension NSTEMI (non-ST elevated myocardial infarction) ([facility]) April 27, 2009 Cardiac cath normal Other adrenal hypofunction PMH - PAST MEDICAL HISTORY OF Left kidney donated Psoriasis and similar disorder Pure hypercholesterolemia 02/17/2015 Right renal mass 03/27/09 Snoring Syncope Tonic pupillary reaction Unspecified disorder of autonomic nervous system 10/20/2003 Unspecified disorder resulting from impaired renal function 04/26/2005 Unspecified sinusitis (chronic) PAST SURGICAL HISTORY Procedure Laterality Date CATARACT EXTRACTION HX Bilateral 10/2017 and October 2017 COLONOSCOPY W/BIOPSY 03/25/2016 COLONOSCOPY FLX DX W/COLLJ SPEC WHEN PFRMD 05/12/2004 Colonoscopy COLONOSCOPY FLX DX W/COLLJ SPEC WHEN PFRMD 09/20/2007 Colonoscopy COLONOSCOPY FLX DX W/COLLJ SPEC WHEN PFRMD 05/11/2009 Colonoscopy COLONOSCOPY FLX DX W/COLLJ SPEC WHEN PFRMD 03/26/2010 Inpatient at [facility] ESOPHAGOGASTRODUODENOSCOPY TRANSORAL DIAGNOSTIC 02/2002 EGD ESOPHAGOGASTRODUODENOSCOPY TRANSORAL DIAGNOSTIC 05/01/2009 EGD ESOPHAGOGASTRODUODENOSCOPY TRANSORAL DIAGNOSTIC 11/18/2009 EGD, EXC CYST/ABERRANT BREAST TISSUE OPEN 1/> LESION 1960 benign IVC FILTER PERCUTANEOUS 03/31/2009 LAPS SURG CHOLECYSTECTOMY W/CHOLANGIOGRAPHY 03/30/2016 LEFT HEART CATH,PERCUTANEOUS 04/27/2009 Cardiac cath, L heart NEPHRECTOMY PARTIAL 04/2000 Nephrectomy, left NEPHRECTOMY PARTIAL 04/14/09 Right - metanephric adenoma (benign) OOPHORECTOMY PARTIAL/TOTAL UNI/BI Left 1973 Ovarian cystectomy PERCUTANEOUS DRAINAGE RENAL/PERIRENAL ABSC 05/11/2009 Right urinoma SINUSOTOMY SPHENOID W/WO BIOPSY 09/2001 SLING OPER STRES INCONTINENCE 1989 bladder suspension TOTAL ABDOMINAL HYSTERECT W/WO RMVL TUBE OVARY 1979 Hysterectomy, ARIEL, BSO ALLERGIES Cipro [Ciprofloxacin] and Penicillins MEDICATIONS amLODIPine (NORVASC) 5 mg tablet Take 1 tablet by mouth once daily. [facility]. levocetirizine (XYZAL) 5 mg tablet Take 1 tablet by mouth once daily. triamcinolone acetonide (KENALOG) 0.1 % cream Apply to affected area twice daily. simvastatin (ZOCOR) 20 mg tablet Take 1 tablet by mouth daily at bedtime. cholecalciferol (VITAMIN D3) 400 unit tab Take 400 Units by mouth once daily. nitroglycerin sublingual (NITROQUICK) 0.4 mg SL tablet Dissolve 1 tablet under the tongue every 5 minutes as needed. denosumab (PROLIA) 60 mg/mL Inject 1 mL subcutaneously once every [address] Torsten Vann, endocrinology. warfarin (COUMADIN) 2.5 mg tablet Take 1 tablet by mouth once daily. hydrocortisone (CORTEF) 10 mg tablet Take 2 tablets by mouth every morni (more content not included)... [facility] 11-08-2022 Note HNO ID: [id number] Author: Kole El PT Service: ? Author Type: Physical Therapist Type: Progress Notes Filed: 11/08/2022 2:24 PM Note Text: Episode Visit Count: 2 Therapist That Will Accept/Oversee The Plan Of Care: Kole El PT, DPT. Start of Care Date: 11/01/22 Onset Date: 06/20/22 Plan of Care Certification Date: 11/01/22 Next Certification Due Date: 12/06/22 Patient Identified by Name and Date of : Yes REHABILITATION AND SPORTS THERAPY PHYSICAL THERAPY TREATMENT NOTE ASSESSMENT: Linda Peralta tolerated the session with fatigue and expected muscle soreness. She demonstrated improvements in walking with cane after education given. The patient will continue to benefit from ongoing skilled physical therapy to progress toward set goals. PLAN FOR NEXT VISIT: Assess response to MET. Continue with LE and core strengthening as able. SUBJECTIVE: Pt presents with cane today due to injury to R foot. Pt unsure what happened, but notable swelling on R lateral foot and into toes. Pt reports that her hip is a little better with the exercises. Pt states her back is a little sore. Pain: Pain Pain Level: 3 Pain Location: Hip - Left Description: Dull, Aching Frequency: Intermittent Post Treatment Pain Post Treatment Pain Level: No Change Post Treatment Pain Location: Hip - Left OBJECTIVE MEASURES WITH LEVEL OF FUNCTION: Manual Long [place] Distraction felt good during completion. TREATMENT: Therapeutic Exercise: 1: Seated HS stretch 3x30 seconds L (only L due to R foot pain) 2: Seated Fig-4 Stretch: 2x30 3: Supine Bridges: 2x10 4: Supine hip flexor stretch off edge of table 3x30 seconds B Skilled Intervention: Patient was educated in proper exercise technique and purpose for exercises. Skilled judgment was provided in selection of appropriate interventions. Correct performance of therapeutic exercises was facilitated with verbal and visual cuing. Manual Therapy: 1: MET for anterior inonimate rotation 5second holds, 6 bouts 2: Manual Long [place] L Hip Distraction: Pull to patient tolerance. Skilled Intervention: Manual skills to improve joint mobility, ROM, and decrease pain. Utilized anatomy knowledge of the therapist, and assessment of patient's response to intervention. Self-Residential Management: 1: Education on use and proper height adjustment for cane and rationale behind use of cane in LUE to offset R foot pain. Skilled Intervention: Skilled judgment in the selection of proper modification for activity of daily living/home management based on clinical presentation, deficits, and needs. Billing Therapeutic Exercise Treatment Minutes: 34 Manual TherapyTreatment Minutes: 10 Self-Care/Home Management Treatment Minutes: 3 Total Session Time (minutes): 47 Session Start Time : 927 Session Stop Time : 1014 AURELIA Crockett, PT, DPT. [facility] 11-08-2022 History of Present illness Narrative This note was created using Drawn to Scaleriter. Subjective Linda Peralta is a 77 year old female. 77 year old female with PMH HTN, CKD, DVT, and PE (on daily Coumadin) presents for right foot. Acute onset yesterday (although she states that has has had pain off and on for quite some time) Right foot Lateral aspect Sharp Intermittent swelling. Denies known trauma or injury. Used x 2 Tylenol arthris this morning. Endorses she started using a cane afraid it will give out Of note she is in PT for hip pain. The PT recommended she come to be evaluated for foot pain. The history is provided by the patient. No parish visitor was used. Pain (foot) Pain location: right foot. This is a recurrent problem. The current episode started more than 1 month ago. There has been no history of extremity trauma. The problem occurs constantly. The problem has been waxing and waning. The quality of the pain is described as sharp. The pain is at a severity of 5/10. The pain is moderate. Associated symptoms include joint swelling. Pertinent negatives include no fever, inability to bear weight, itching, joint locking, limited range of motion, numbness, stiffness or tingling. The symptoms are aggravated by activity and standing. She has tried nothing for the symptoms. The treatment provided no relief. Family history does not include gout or rheumatoid arthritis. Her past medical history is significant for osteoarthritis. There is no history of diabetes, gout or rheumatoid arthritis. PAST MEDICAL HISTORY Diagnosis Date Anemia 08/26/2009 ASHD (arteriosclerotic heart disease) 04/25/2009 Asthma Benign neoplasm of colon 04/26/2005 Tubular adenoma Chronic diarrhea 03/15/2010 Chronic sphenoidal sinusitis 09/15/2003 Collagenous colitis 03/30/2010 Contact dermatitis and other eczema, due to unspecified cause 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Navarre's disease Cystocele, midline 07/23/2007 Diverticulosis of colon (without mention of hemorrhage) DVT (deep venous thrombosis) ([facility]) 03/23/2012 DVT of lower extremity (deep venous thrombosis) ([facility]) 03/27/09 Esophageal reflux Gallstones 03/06/2016 Hypercalcemia 03/19/2009 Hypertension NSTEMI (non-ST elevated myocardial infarction) ([facility]) April 27, 2009 Cardiac cath normal Other adrenal hypofunction PMH - PAST MEDICAL HISTORY OF Left kidney donated Psoriasis and similar disorder Pure hypercholesterolemia 02/17/2015 Right renal mass 03/27/09 Snoring Syncope Tonic pupillary reaction Unspecified disorder of autonomic nervous system 10/20/2003 Unspecified disorder resulting from impaired renal function 04/26/2005 Unspecified sinusitis (chronic) PAST SURGICAL HISTORY Procedure Laterality Date CATARACT EXTRACTION HX Bilateral 10/2017 and October 2017 COLONOSCOPY W/BIOPSY 03/25/2016 COLONOSCOPY FLX DX W/COLLJ SPEC WHEN PFRMD 05/12/2004 Colonoscopy COLONOSCOPY FLX DX W/COLLJ SPEC WHEN PFRMD 09/20/2007 Colonoscopy COLONOSCOPY FLX DX W/COLLJ SPEC WHEN PFRMD 05/11/2009 Colonoscopy COLONOSCOPY FLX DX W/COLLJ SPEC WHEN PFRMD 03/26/2010 Inpatient at [facility] ESOPHAGOGASTRODUODENOSCOPY TRANSORAL DIAGNOSTIC 02/2002 EGD ESOPHAGOGASTRODUODENOSCOPY TRANSORAL DIAGNOSTIC 05/01/2009 EGD ESOPHAGOGASTRODUODENOSCOPY TRANSORAL DIAGNOSTIC 11/18/2009 EGD, EXC CYST/ABERRANT BREAST TISSUE OPEN 1/> LESION 1960 benign IVC FILTER PERCUTANEOUS 03/31/2009 LAPS SURG CHOLECYSTECTOMY W/CHOLANGIOGRAPHY 03/30/2016 LEFT HEART CATH,PERCUTANEOUS 04/27/2009 Cardiac cath, L heart NEPHRECTOMY PARTIAL 04/2000 Nephrectomy, left NEPHRECTOMY PARTIAL 04/14/09 Right - metanephric adenoma (benign) OOPHORECTOMY PARTIAL/TOTAL UNI/BI Left 1973 Ovarian cystectomy PERCUTANEOUS DRAINAGE RENAL/PERIRENAL ABSC 05/11/2009 Right urinoma SINUSOTOMY SPHENOID W/WO BIOPSY 09/2001 SLING OPER STRES INCONTINENCE 1989 bladder suspension TOTAL ABDOMINAL HYSTERECT W/WO RMVL TUBE OVARY 1979 Hysterectomy, ARIEL, BSO ALLERGIES Cipro [Ciprofloxacin] and Penicillins MEDICATIONS amLODIPine (NORVASC) 5 mg tablet Take 1 tablet by mouth once daily. [facility]. levocetirizine (XYZAL) 5 mg tablet Take 1 tablet by mouth once daily. triamcinolone acetonide (KENALOG) 0.1 % cream Apply to affected area twice daily. simvastatin (ZOCOR) 20 mg tablet Take 1 tablet by mouth daily at bedtime. cholecalciferol (VITAMIN D3) 400 unit tab Take 400 Units by mouth once daily. nitroglycerin sublingual (NITROQUICK) 0.4 mg SL tablet Dissolve 1 tablet under the tongue every 5 minutes as needed. denosumab (PROLIA) 60 mg/mL Inject 1 mL subcutaneously once every [address] Torsten Vann, endocrinology. warfarin (COUMADIN) 2.5 mg tablet Take 1 tablet by mouth once daily. hydrocortisone (CORTEF) 10 mg tablet Take 2 tablets by mouth every morning AND 1 tablet every evening. acetaminophen (TYLENOL) 325 mg tablet Take 650 mg by mouth every 6 hours as needed. FAMILY HISTORY Problem Relation Age of Onset Coronary Artery Disease Mother [place] at 87y.o. Hypertension Mother Stroke Father Coronary Artery Disease Father sudden at 85y.o. Hypertension Sister COPD Sister Clotting Disorder Sister pulmonary embolism Kidney Disease Brother jan.sepsis, kidney transplant. Hypertension Brother DVT Daughter Breast Cancer Daughter Coronary Artery Disease Brother 65 Social History Tobacco Use Smoking status: Never Smokeless tobacco: Never Vaping Use Vaping Use: Never used Substance Use Topics Alcohol use: No Drug use: No Review of Systems Constitutional: Negative for activity change, appetite change, chills and fever. Respiratory: Negative for apnea, cough, choking and chest tightness. Cardiovascular: Negative for chest pain, palpitations and leg swelling. Gastrointestinal: Negative for abdominal pain, diarrhea, nausea and vomiting. Musculoskeletal: Negative for arthralgias, gout and stiffness. Right foot pain Skin: Negative for color change, itching, pallor, rash and wound. Allergic/Immunologic: Negative for environmental allergies, food allergies and immunocompromised state. Neurological: Negative for dizziness, tingling, facial asymmetry, numbness and headaches. Hematological: Negative for adenopathy. Does not bruise/bleed easily. Psychiatric/Behavioral: Negative for agitation and behavioral problems. Objective BP 128/86 Pulse 78 Temp 36.4 C (97.5 F) Resp 20 Wt 63.3 kg (139 lb 9.6 oz) SpO2 98% BMI 26.02 kg/m Physical Exam Vitals and nursing note reviewed. Constitutional: General: She is not in acute distress. Appearance: Normal appearance. She is normal weight. She is not ill-appearing, toxic-appearing or diaphoretic. HENT: Head: Normocephalic and atraumatic. Right Ear: Ear canal and external ear normal. Left Ear: Ear canal and external ear normal. Nose: Nose normal. No congestion or rhinorrhea. Mouth/Throat: Mouth: Mucous membranes are moist. Pharynx: No oropharyngeal exudate or posterior oropharyngeal erythema. Eyes: General: Right eye: No discharge. Left eye: No discharge. Extraocular Movements: Extraocular movements intact. Conjunctiva/sclera: Conjunctivae normal. Pupils: Pupils are equal, round, and reactive to light. Cardiovascular: Rate and Rhythm: Normal rate and regular rhythm. Pulses: Normal pulses. Heart sounds: Normal heart sounds. No murmur heard. No friction rub. Pulmonary: Effort: Pulmonary effort is normal. No respiratory distress. Breath sounds: Normal breath sounds. No stridor. No wheezing, rhonchi or rales. Chest: Chest wall: No tenderness. Abdominal: General: Abdomen is flat. There is no distension. Palpations: Abdomen is soft. There is no mass. Tenderness: There is no abdominal tenderness. There is no right CVA tenderness, left CVA tenderness, guarding or rebound. Hernia: No hernia is present. Musculoskeletal: General: Swelling and tenderness present. No deformity or signs of injury. Cervical back: Normal range of motion and neck supple. No rigidity. Right lower leg: No edema. Left lower leg: No edema. Comments: Right foot with TTP noted over right lateral aspect. Mild swelling. No abscess. No streaking. DP + 2 B/L +neuro +sensation. Lymphadenopathy: Cervical: No cervical adenopathy. Skin: General: Skin is warm and dry. Coloration: Skin is not jaundiced or pale. Findings: No bruising, erythema, lesion or rash. Neurological: General: No focal deficit present. Mental Status: She is alert and oriented to person, place, and time. Cranial Nerves: No cranial nerve deficit. Sensory: No sensory deficit. Motor: No weakness. Coordination: Coordination normal. Gait: Gait normal. Psychiatric: Mood and Affect: Mood normal. Behavior: Behavior normal. Thought Content: Thought content normal. Judgment: Judgment normal. Assessment and Plan ASSESSMENT/PLAN: 1. Foot pain, right - ICD9: 729.5, ICD10: M79.671 X several months However, endorses over past day has markedly increased No known trauma or injury - XR FOOT GENERAL 3V AP/LAT/OBL RIGHT-reveals fracture distal 5th metatarsal Walking boot (DON AILYN form completed) chosen over splinting and crutches when patient age and mobility taken into account. RICE therapy Podiatry consult placed and appt made at time of exam. Jacinda Mccrary APRN.OUTSIDE PHYSICAL DAMAGE APPRAISER documented in this encounter [facility] 11-01-2022 Note HNO ID: [id number] Author: Kole El PT Service: ? Author Type: Physical Therapist Type: Progress Notes Filed: 11/01/2022 2:24 PM Note Text: Episode Visit Count: 1 Therapist That Will Accept/Oversee The Plan Of Care: Kole El, ULISSES, DPT. Start of Care Date: 11/01/22 Onset Date: 06/20/22 Plan of Care Certification Date: 11/01/22 Next Certification Due Date: 12/06/22 Patient Identified by Name and Date of : Yes REHABILITATION AND SPORTS THERAPY PHYSICAL THERAPY EVALUATION PLAN OF CARE: Assessment: Linda Peralta presents with chief complaint of L Hip Pain that interferes with walking, walking in the house, walking in the community, stair negotiation, physical activities, recreational activities, Comments Cannot sleep on L Hip; Mowing. She presents with impairments in ADL's, flexibility, gait, independence in exercise, joint mobility, overall function, posture, strength, symptom management, and tissue tenderness. Patient did not complete the PROMIS? (Patient Reported Outcome Measures Information System). Prognosis for therapy is Good due to: current objective clinical presentation, acuteness of condition, within-session changes, good support system/ coping skills . She will benefit from skilled therapy services to meet the goals established for this plan of care as noted below. Goals for Episode of Care: created on 11/01/22 through 01/01/23 [place] in home exercise program. Patient will decrease pain rating by 2 points to meet minimal clinical important difference for numeric pain rating scale. Patient will demonstrate increase in B Hip strength to 5/5 during manual muscle testing in order to improve function for basic self-care tasks, home management tasks, leisure / recreation skills, light functional tasks, and prior functional tasks. Patient will increase flexibility of L Quadriceps/Hip Flexors to WNL to improve ability to maintain proper posture, improve mechanics, and decrease pain. Perform walking AND weightbearing with decreased report of symptoms/pain in 4-6 weeks. Normalize gait mechanics Improve Left unilateral pelvic asymmetry to improve pain, posture and gait mechanics. Patient Goals: Reduce pain; improve movement. Planned Interventions, Frequency, and Duration: Current Frequency: 2x/week Duration: 4 weeks Total Number of Visits Planned: 8 Planned Treatment Interventions: Therapeutic exercise (89776), Neuromuscular re-education (65789), Manual therapy (93047), Self-shelter management (10683), Therapeutic activities (44689), Gait Training (05006), Patient/Family/Caregiver Education PLAN FOR NEXT VISIT: Muscle Energy Techniques for anterior innominate rotation; LE and core strengthening; manual flexibility of the quads AND hip flexors (Can trial stretches for home) Patient demonstrates good understanding of plan of care and treatment. The above goals and plan of care were discussed and agreed upon by patient/family. SUBJECTIVE: Patient reports L Hip pain going on since May/June of this year; reports R Hip pain last summer (only lasted 1-2 months), states this L Hip pain has been worse than the previous R Hip episode; L hip has been worsening since initial onset; states her L hip pain follows the top of the pelvic bone from lateral to anterior; states the pain is a dull intense ache,when she is walking/weightbearing; she reports she feels like she is constantly waddling; radiographs demo B Hip OA; tylenol does numb the pain however she is unable to continuous take due to Warfarin medication; No falls; no use of cane/walker; does use a walking stick in the community. Patient Goals: Reduce pain; improve movement. Functional Limitations: walking, walking in the house, walking in the community, stair negotiation, physical activities, recreational activities, Comments Functional Limitation Comments: Cannot sleep on L Hip; Mowing. Prior Level of Function: Independent without limitations Relevant History Past Relevant Medical Conditions: Comments, Hypertension Relevant Medical Conditions Comments: Stage 3b CKD, DVT on Warfarin Employment: Retired Recreation / Current Exercise: Walks Everyday, about 1.5 miles. Intake Information: Prescription present Previous Treatment: Heat , Ice [place] Interview: No positive findings with falls interview Pain: Pain Pain Level: 6 Pain Location: Hip - Left Description: Dull, Aching Frequency: Intermittent Post Treatment Pain Post Treatment Pain Level: Better Post Treatment Pain Location: Hip - Left Post Treatment Symptoms: Better following manual. PROMIS Scales T-scores: mean of general population = 50. 5 points is clinically meaningfully difference Percentiles provide an indication of how the patient's score ranks in relation to the general population. Higher percentile rankings indicate better function/quality of life. 50th percentile is the average of (more content not included)... [facility] 11-01-2022 History of Present illness Narrative Episode Visit Count: 1 Therapist That Will Accept/Oversee The Plan Of Care: Kole El, PT, DPT. Start of Care Date: 11/01/22 Onset Date: 06/20/22 Plan of Care Certification Date: 11/01/22 Next Certification Due Date: 12/06/22 Patient Identified by Name and Date of : Yes REHABILITATION AND SPORTS THERAPY PHYSICAL THERAPY EVALUATION PLAN OF CARE: Assessment: Linda Peralta presents with chief complaint of L Hip Pain that interferes with walking, walking in the house, walking in the community, stair negotiation, physical activities, recreational activities, Comments Cannot sleep on L Hip; Mowing. She presents with impairments in ADL's, flexibility, gait, independence in exercise, joint mobility, overall function, posture, strength, symptom management, and tissue tenderness. Patient did not complete the PROMIS (Patient Reported Outcome Measures Information System). Prognosis for therapy is Good due to: current objective clinical presentation, acuteness of condition, within-session changes, good support system/ coping skills . She will benefit from skilled therapy services to meet the goals established for this plan of care as noted below. Goals for Episode of Care: created on 11/01/22 through 01/01/23 [place] in home exercise program. Patient will decrease pain rating by 2 points to meet minimal clinical important difference for numeric pain rating scale. Patient will demonstrate increase in B Hip strength to 5/5 during manual muscle testing in order to improve function for basic self-care tasks, home management tasks, leisure / recreation skills, light functional tasks, and prior functional tasks. Patient will increase flexibility of L Quadriceps/Hip Flexors to WNL to improve ability to maintain proper posture, improve mechanics, and decrease pain. Perform walking & weightbearing with decreased report of symptoms/pain in 4-6 weeks. Normalize gait mechanics Improve Left unilateral pelvic asymmetry to improve pain, posture and gait mechanics. Patient Goals: Reduce pain; improve movement. Planned Interventions, Frequency, and Duration: Current Frequency: 2x/week Duration: 4 weeks Total Number of Visits Planned: 8 Planned Treatment Interventions: Therapeutic exercise (45706), Neuromuscular re-education (42649), Manual therapy (62259), Self-shelter management (03369), Therapeutic activities (61158), Gait Training (56930), Patient/Family/Caregiver Education PLAN FOR NEXT VISIT: Muscle Energy Techniques for anterior innominate rotation; LE and core strengthening; manual flexibility of the quads & hip flexors (Can trial stretches for home) Patient demonstrates good understanding of plan of care and treatment. The above goals and plan of care were discussed and agreed upon by patient/family. SUBJECTIVE: Patient reports L Hip pain going on since May/June of this year; reports R Hip pain last summer (only lasted 1-2 months), states this L Hip pain has been worse than the previous R Hip episode; L hip has been worsening since initial onset; states her L hip pain follows the top of the pelvic bone from lateral to anterior; states the pain is a dull intense ache,when she is walking/weightbearing; she reports she feels like she is constantly waddling; radiographs demo B Hip OA; tylenol does numb the pain however she is unable to continuous take due to Warfarin medication; No falls; no use of cane/walker; does use a walking stick in the community. Patient Goals: Reduce pain; improve movement. Functional Limitations: walking, walking in the house, walking in the community, stair negotiation, physical activities, recreational activities, Comments Functional Limitation Comments: Cannot sleep on L Hip; Mowing. Prior Level of Function: Independent without limitations Relevant History Past Relevant Medical Conditions: Comments, Hypertension Relevant Medical Conditions Comments: Stage 3b CKD, DVT on Warfarin Employment: Retired Recreation / Current Exercise: Walks Everyday, about 1.5 miles. Intake Information: Prescription present Previous Treatment: Heat , Ice Falls Interview: No positive findings with falls interview Pain: Pain Pain Level: 6 Pain Location: Hip - Left Description: Dull, Aching Frequency: Intermittent Post Treatment Pain Post Treatment Pain Level: Better Post Treatment Pain Location: Hip - Left Post Treatment Symptoms: Better following manual. PROMIS Scales T-scores: mean of general population = 50. 5 points is clinically meaningfully difference Percentiles provide an indication of how the patient's score ranks in relation to the general population. Higher percentile rankings indicate better function/quality of life. 50th percentile is the average of the general population and indicates half of respondents had a worse score. OBJECTIVE MEASURES WITH LEVEL OF FUNCTION: Hip Observations L Hip Palpation Tenderness: ASIS (Anterior superior iliac spine) (AIIS, Iliac Crest, Hip Flexor.) Lumbar Spine AROM Lumbar Flexion: Normal Lumbar Extension: Minimal limitation Lumbar R Side-Bend: Normal Lumbar L Side-Bend: Normal LE AROM R LE AROM: Grossly WNL L LE AROM: Grossly WNL LE Flexibility Flexibility: Hip Internal Rotation Flexibility, Hip External Rotation Flexibility, Quadriceps Flexibility, Hip Flexor Flexibility, Hip Adductor R Hip Flexor Flexibility: Fair L Hip Flexor Flexibility: Poor R Quadriceps Flexibility: Fair L Quadriceps Flexibility: Poor R Adductor Flexibility: Fair L Adductor Flexibility: Poor R Hip Internal Rotation Flexibility: Fair L Hip Internal Rotation Flexibility: Fair R Hip External Rotation Flexibility: Fair L Hip External Rotation Flexibility: Fair LE Strength R LE Strength: Grossly 5/5, except Hip Flex & ABD 4/5. L Hip Extension: 4+/5 L Hip Flexion (L2): 4/5 L Hip ABduction: 4/5 L Hip ADduction: 4+/5 L Hip Internal Rotation: 4/5 L Hip External Rotation: 4/5 L Knee Extension (L3): 5/5 L Knee Flexion: 5/5 L Ankle Dorsiflexion (L4): 5/5 L Ankle Plantar Flexion: 5/5 Special Tests - Hip and Spine Hip and Spine Special Tests: SLR Test, NETO Test, FADDIR Test, Scour Test SLR Test: Left Negative, Right Negative NETO Test: Left Positive FADDIR Test: Left Negative Scour Test: Left Positive Special Test Comments: Quadrant (L Pos); Fair Test (L Neg.). Two Bouts of Supine to Longsit Test: - Left anterior innominate rotation revealed. Gait Weight Bearing Status: FWB Gait: Independent Gait Device: None Gait Deviations: Left Lower Extremity Gait Deviations Left Lower Extremity: Stance time decreased, Weight bearing decreased, Lacks hip extension beyond mid-stance Gait Observation: Overall antalgic gait; Decreased L Hip Extension during advance of gait. Education: Education Learning/educational needs: Health promotion, Safety, Home exercise program, Plan of Care, Changes in Plan of Care, Posture, Gait Training, Body Mechanics TREATMENT: PT Treatment Interventions: Therapeutic Exercise, Manual Therapy, Self-Residential Management Evaluation Therapeutic Exercise: 1: Supine Hip Adduction Isometric with Ball: 1x10, 3-5 sec squeeze. 2: Supine Hip ABD, PTB: 1x10, 3-5 sec hold isometric. 3: Supine Bridges: 1x10 4: Seated Fig-4 Stretch: 2x30 Skilled Intervention: Patient was educated in proper exercise technique and purpose for exercises. Reviewed and educated patient on additions/changes for home exercise program as above (*). Skilled judgment was provided in selection of appropriate interventions. Provided written instruction for home exercise program to facilitate proper performance and compliance. Correct performance of therapeutic exercises was facilitated with verbal, visual, and tactile cuing. Manual Therapy: 1: Shotgun Technique: 2 Bouts. 2: Manual Flexibility L Hip Flexors & Quads: Push to tolerance. 3: Manual Long Katy L Hip Distraction: Pull to patient tolerance. Skilled Intervention: Manual skills to improve joint mobility, ROM, and decrease pain. Utilized anatomy knowledge of the therapist, and assessment of patient's response to intervention. Self-Residential Management: 1: Education on anatomy & physiology of current presentation & deficits compared to her subjective pain/sxs and functional limitations; edcuated patient in purpose of supine to long sit test to assess the contribuition of the SI joint to the apparent leg length discrepancy; educated patient on functionaldiscrepancy and her current pelvic alignment and deficits that come with it. 2: Discussion and education about POC & HEP, to continue active lifestyle, however refrain and stop any activity or exercise that brings on concordant pain or abnormal pain in the L hip. Discussion on stretching vs. strengthening parameters. Role of PT outlined to patient and patient agrees. Skilled Intervention: Skilled judgment in the selection of proper modification for activity of daily living/home management based on clinical presentation, deficits, and needs. Reviewed patient specific diagnosis in relation to activities of daily living/home management. Activity progression based on professional judgement. Billing * Evaluation Low Complexity: 1 Unit Therapeutic Exercise Treatment Minutes: 10 Manual TherapyTreatment Minutes: 15 Self-Care/Home Management Treatment Minutes: 5 Skilled Treatment Time Minutes (timed and untimed codes): 45 Total Session Time (minutes): 45 Session Start Time : 0815 Session Stop Time : 0900 Kole El PT documented in this encounter [facility] 10-26-2022 Note HNO ID: [id number] Author: Betsey Lantigua RT(R) Service: Radiology Author Type: Technologist Type: Progress Notes Filed: 10/26/2022 2:59 PM Note Text: Radiology Service Progress Note PATIENT NAME: Linda Peralta DATE OF SERVICE: October 26, 2022 TIME: 2:40 PM PATIENT IDENTITY VERIFICATION COMPLETED USING TWO (2) IDENTIFIERS: Name and Date of confirmed by patient verbally. FALL SCREENING: Has the patient had 2 falls in the last year or 1 fall with injury or currently using an Ambulatory Assistive Device (Walker, Cane, Wheelchair, Crutches, etc.)? No PATIENT GENDER DATA: Female. status: : No status: NO. PATIENT RELEVANT IMPLANT DATA REVIEWED: Not Applicable RADIOLOGY DEPARTMENT: General X-ray: Exam(s) Completed: Pelvis X-Ray: Pelvis with Hip Bilateral PERIPHERAL IV DATA: Not applicable SIGNED BY: RT Doug(R) October 26, 2022 2:40 PM [facility] 10-26-2022 Note HNO ID: [id number] Author: Amos Floyd MD Service: ? Author Type: Physician Type: Progress Notes Filed: 10/26/2022 11:18 PM Note Text: This note was created using Drawn to Scaleriter. Subjective Patient presents with: Left Hip Pain Immunizations: Flu vaccination Linda Peralta is a 77 year old female with left hip pain for 4 months, aggravated by weight bearing, walking, and laying on the left side. She denied any trauma or fall, but she was getting less relief from acetaminophen. Other symptoms were right hip pain, but not as bothersome at the left hip Left lower back also hurt at times. Review of Systems Constitutional: Negative for appetite change, fatigue, fever and unexpected weight change. Respiratory: Negative for shortness of breath. Cardiovascular: Negative for chest pain, palpitations and leg swelling. Gastrointestinal: Negative for abdominal pain, constipation and diarrhea. 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 Hypercalcemia Ashd (Arteriosclerotic Heart Disease) Dvt (Deep Venous Thrombosis) (Hcc) 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 Chronic Nonallergic Rhinitis Pure hypercholesterolemia Atopic Neurodermatitis Hypertension Generalized Muscle Weakness Stage 3b Chronic Kidney Disease (Hcc) Hypertensive Kidney Disease With Stage 3b Chronic Kidney Disease (Hcc) Current Outpatient Medications Medication Sig levocetirizine (XYZAL) 5 mg tablet Take 1 tablet by mouth once daily. triamcinolone acetonide (KENALOG) 0.1 % cream Apply to affected area twice daily. simvastatin (ZOCOR) 20 mg tablet Take 1 tablet by mouth daily at bedtime. cholecalciferol (VITAMIN D3) 400 unit tab Take 400 Units by mouth once daily. nitroglycerin sublingual (NITROQUICK) 0.4 mg SL tablet Dissolve 1 tablet under the tongue every 5 minutes as needed. denosumab (PROLIA) 60 mg/mL Inject 1 mL subcutaneously once every [address] Torsten Vann, endocrinology. warfarin (COUMADIN) 2.5 mg tablet Take 1 tablet by mouth once daily. hydrocortisone (CORTEF) 10 mg tablet Take 2 tablets by mouth every morning AND 1 tablet every evening. acetaminophen (TYLENOL) 325 mg tablet Take 650 mg by mouth every 6 hours as needed. amLODIPine (NORVASC) 5 mg tablet Take 1 tablet by mouth once daily. [facility]. No current facility-administered medications for this visit. Objective BP (P) 122/78 (BP Site: Left Arm, BP Position: Sitting, BP Cuff Size: Regular Adult) Pulse (P) 96 Wt (P) 62.6 kg (138 lb) BMI (P) 25.72 kg/m? Physical Exam Constitutional: General: She is not in acute distress. Appearance: She is not ill-appearing. Cardiovascular: Rate and Rhythm: Normal rate and regular rhythm. Pulmonary: Breath sounds: Normal breath sounds. Abdominal: Palpations: Abdomen is soft. There is no mass. Tenderness: There is no abdominal tenderness. Musculoskeletal: Lumbar back: No spasms or tenderness. Normal range of motion. Negative right straight leg raise test and negative left straight leg raise test. Right hip: No deformity or tenderness. Normal range of motion. Normal strength. Left hip: Tenderness present. No deformity, bony tenderness or crepitus. Decreased range of motion. Normal strength. Left upper leg: Normal. Left knee: Normal. Right lower leg: No edema. Left lower leg: No edema. Neurological: Mental Status: She is alert. Gait: Gait is intact. Assessment and Plan 1. Hip pain, unspecified laterality - ICD9: 719.45, ICD10: M25.559 (primary diagnosis) DJD suspected. - XR HIP BILATERAL 5V PEL/AP/LAT EACH HIP - CONSULT TO PHYSICAL THERAPY 2. Stage 3b chronic kidney disease (HCC) - ICD9: 585.3, ICD10: N18.32 See nephrology. 3. Deep vein thrombosis (DVT) of lower extremity, unspecified chronicity, unspecified laterality, unspecified vein (HCC) - ICD9: 453.40, ICD10: I82.409 NSAID contraindicated due to anticoagulation. 4. Need for influenza vaccination - ICD9: V04.81, ICD10: Z23 - INFLUENZA VACCINE, PRSV FREE, AGE 65+ YR, HIGH DOSE, QUADRIVALENT (FLUZONE HIGH-DOSE) Amos Floyd MD [facility] 10-26-2022 History of Present illness Narrative This note was created using Drawn to Scaleriter. Subjective Patient presents with: Left Hip Pain Immunizations: Flu vaccination Linda Peralta is a 77 year old female with left hip pain for 4 months, aggravated by weight bearing, walking, and laying on the left side. She denied any trauma or fall, but she was getting less relief from acetaminophen. Other symptoms were right hip pain, but not as bothersome at the left hip Left lower back also hurt at times. Review of Systems Constitutional: Negative for appetite change, fatigue, fever and unexpected weight change. Respiratory: Negative for shortness of breath. Cardiovascular: Negative for chest pain, palpitations and leg swelling. Gastrointestinal: Negative for abdominal pain, constipation and diarrhea. 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 Hypercalcemia Ashd (Arteriosclerotic Heart Disease) Dvt (Deep Venous Thrombosis) (Hcc) 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 Chronic Nonallergic Rhinitis Pure hypercholesterolemia Atopic Neurodermatitis Hypertension Generalized Muscle Weakness Stage 3b Chronic Kidney Disease (Hcc) Hypertensive Kidney Disease With Stage 3b Chronic Kidney Disease (Hcc) Current Outpatient Medications Medication Sig levocetirizine (XYZAL) 5 mg tablet Take 1 tablet by mouth once daily. triamcinolone acetonide (KENALOG) 0.1 % cream Apply to affected area twice daily. simvastatin (ZOCOR) 20 mg tablet Take 1 tablet by mouth daily at bedtime. cholecalciferol (VITAMIN D3) 400 unit tab Take 400 Units by mouth once daily. nitroglycerin sublingual (NITROQUICK) 0.4 mg SL tablet Dissolve 1 tablet under the tongue every 5 minutes as needed. denosumab (PROLIA) 60 mg/mL Inject 1 mL subcutaneously once every [address] Torsten Vann, endocrinology. warfarin (COUMADIN) 2.5 mg tablet Take 1 tablet by mouth once daily. hydrocortisone (CORTEF) 10 mg tablet Take 2 tablets by mouth every morning AND 1 tablet every evening. acetaminophen (TYLENOL) 325 mg tablet Take 650 mg by mouth every 6 hours as needed. amLODIPine (NORVASC) 5 mg tablet Take 1 tablet by mouth once daily. [facility]. No current facility-administered medications for this visit. Objective BP (P) 122/78 (BP Site: Left Arm, BP Position: Sitting, BP Cuff Size: Regular Adult) Pulse (P) 96 Wt (P) 62.6 kg (138 lb) BMI (P) 25.72 kg/m Physical Exam Constitutional: General: She is not in acute distress. Appearance: She is not ill-appearing. Cardiovascular: Rate and Rhythm: Normal rate and regular rhythm. Pulmonary: Breath sounds: Normal breath sounds. Abdominal: Palpations: Abdomen is soft. There is no mass. Tenderness: There is no abdominal tenderness. Musculoskeletal: Lumbar back: No spasms or tenderness. Normal range of motion. Negative right straight leg raise test and negative left straight leg raise test. Right hip: No deformity or tenderness. Normal range of motion. Normal strength. Left hip: Tenderness present. No deformity, bony tenderness or crepitus. Decreased range of motion. Normal strength. Left upper leg: Normal. Left knee: Normal. Right lower leg: No edema. Left lower leg: No edema. Neurological: Mental Status: She is alert. Gait: Gait is intact. Assessment and Plan 1. Hip pain, unspecified laterality - ICD9: 719.45, ICD10: M25.559 (primary diagnosis) DJD suspected. - XR HIP BILATERAL 5V PEL/AP/LAT EACH HIP - CONSULT TO PHYSICAL THERAPY 2. Stage 3b chronic kidney disease (HCC) - ICD9: 585.3, ICD10: N18.32 See nephrology. 3. Deep vein thrombosis (DVT) of lower extremity, unspecified chronicity, unspecified laterality, unspecified vein (HCC) - ICD9: 453.40, ICD10: I82.409 NSAID contraindicated due to anticoagulation. 4. Need for influenza vaccination - ICD9: V04.81, ICD10: Z23 - INFLUENZA VACCINE, PRSV FREE, AGE 65+ YR, HIGH DOSE, QUADRIVALENT (FLUZONE HIGH-DOSE) Amos Floyd MD documented in this encounter [facility] 09-19-2022 Miscellaneous Notes [facility] 05/25/2022 Patient has been identified by name and date of : Yes Requested Prescriptions Pending Prescriptions Disp Refills levocetirizine (XYZAL) 5 mg tablet 90 tablet 3 Sig: Take 1 tablet by mouth once daily. RX INSTRUCTIONS: Patient aware RX will be sent to pharmacy. No need to notify patient. Edda Loya documented in this encounter [facility] 07-27-2022 Miscellaneous Notes Returned call to [facility]- ICD code provided (L20.81) Specialty Pharmacy phoned requesting a ICD9 Code for ADBRY medication Please advise pharmacy using ref #[id number] documented in this encounter [facility] 07-22-2022 Miscellaneous Notes [facility] 05/2022 [facility] called and stated that they need a new script for the ADBRY sent to them. Please call [phone] or escribe fax at [phone] documented in this encounter [facility] 07-20-2022 Note HNO ID: [id number] Author: Rocio Johnson APRN.OUTSIDE PHYSICAL DAMAGE APPRAISER Service: ? Author Type: Nurse Practitioner Type: Progress Notes Filed: 07/20/2022 11:15 AM Note Text: CC: Patient presents with: F/U 6 months HPI Linda Peralta is a 77 year old female who presents today for above. HTN/ASHD-[facility]. Next follow-up in one week. Medication changes:No Taking all medications as prescribed: Yes Side effects: No Home BP's: Yes normally in the 120's/80's, have been a little lower the past two days. This morning it was 92/61, she felt a little woozy but resolved quickly. Denies: headache, chest pain, palpitations, dyspnea, and peripheral edema. Last 3 Encounter BP Readings: Date: BP: 07/20/2022 102/66 12/20/2021 154/100 12/06/2021 126/86 Osteopenia secondary to group home steroid use. Managed by endocrinology. Prolia injections every 6 months. Atopic neurodermatitis- managed by [facility] field laboratory operator. Not responsive to current treatments. Started on new medication called Manuel however her pharmacy has not received this yet. VTE- lifelong anticoagulation with Coumadin. INR's managed by order booker. REVIEW OF SYSTEMS See HPI PAST MEDICAL HISTORY Diagnosis Date Anemia 08/26/2009 ASHD (arteriosclerotic heart disease) 04/25/2009 Asthma Benign neoplasm of colon 04/26/2005 Tubular adenoma Chronic diarrhea 03/15/2010 Chronic sphenoidal sinusitis 09/15/2003 Collagenous colitis 03/30/2010 Contact dermatitis and other eczema, due to unspecified cause 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Navarre's disease Cystocele, midline 07/23/2007 Diverticulosis of colon (without mention of hemorrhage) DVT (deep venous thrombosis) ([facility]) 03/23/2012 DVT of lower extremity (deep venous thrombosis) ([facility]) 03/27/09 Esophageal reflux Gallstones 03/06/2016 Hypercalcemia 03/19/2009 Hypertension NSTEMI (non-ST elevated myocardial infarction) ([facility]) April 27, 2009 Cardiac cath normal Other adrenal hypofunction PMH - PAST MEDICAL HISTORY OF Left kidney donated Psoriasis and similar disorder Pure hypercholesterolemia 02/17/2015 Right renal mass 03/27/09 Snoring Syncope Tonic pupillary reaction Unspecified disorder of autonomic nervous system 10/20/2003 Unspecified disorder resulting from impaired renal function 04/26/2005 Unspecified sinusitis (chronic) PAST SURGICAL HISTORY Procedure Laterality Date CATARACT EXTRACTION HX Bilateral 10/2017 and October 2017 COLONOSCOPY W/BIOPSY 03/25/2016 COLONOSCOPY FLX DX W/COLLJ SPEC WHEN PFRMD 05/12/2004 Colonoscopy COLONOSCOPY FLX DX W/COLLJ SPEC WHEN PFRMD 09/20/2007 Colonoscopy COLONOSCOPY FLX DX W/COLLJ SPEC WHEN PFRMD 05/11/2009 Colonoscopy COLONOSCOPY FLX DX W/COLLJ SPEC WHEN PFRMD 03/26/2010 Inpatient at [facility] ESOPHAGOGASTRODUODENOSCOPY TRANSORAL DIAGNOSTIC 02/2002 EGD ESOPHAGOGASTRODUODENOSCOPY TRANSORAL DIAGNOSTIC 05/01/2009 EGD ESOPHAGOGASTRODUODENOSCOPY TRANSORAL DIAGNOSTIC 11/18/2009 EGD, EXC CYST/ABERRANT BREAST TISSUE OPEN 1/> LESION 1960 benign IVC FILTER PERCUTANEOUS 03/31/2009 LAPS SURG CHOLECYSTECTOMY W/CHOLANGIOGRAPHY 03/30/2016 LEFT HEART CATH,PERCUTANEOUS 04/27/2009 Cardiac cath, L heart NEPHRECTOMY PARTIAL 04/2000 Nephrectomy, left NEPHRECTOMY PARTIAL 04/14/09 Right - metanephric adenoma (benign) OOPHORECTOMY PARTIAL/TOTAL UNI/BI Left 1973 Ovarian cystectomy PERCUTANEOUS DRAINAGE RENAL/PERIRENAL ABSC 05/11/2009 Right urinoma SINUSOTOMY SPHENOID W/WO BIOPSY 09/2001 SLING OPER STRES INCONTINENCE 1989 bladder suspension TOTAL ABDOMINAL HYSTERECT W/WO RMVL TUBE OVARY 1979 Hysterectomy, ARIEL, BSO ALLERGIES Cipro [Ciprofloxacin] and Penicillins MEDICATIONS tralokinumab-ldrm (ADBRY) 150 mg/mL injection Inject 4 syringes subcutaneously at week 0, then Inject 2 syringes subcutaneously at week 2, then inject 2 syringes subcutaneously every other week after this. triamcinolone acetonide (KENALOG) 0.1 % cream Apply to affected area twice daily. ruxolitinib (OPZELURA) 1.5 % cream Apply to affected area twice daily. amLODIPine (NORVASC) 2.5 mg tablet Take 2.5 mg by mouth once daily. simvastatin (ZOCOR) 20 mg tablet Take 1 tablet by mouth daily at bedtime. levocetirizine (XYZAL) 5 mg tablet Take 1 tablet by mouth once daily. cholecalciferol (VITAMIN D3) 400 unit tab Take 400 Units by mouth once daily. nitroglycerin sublingual (NITROQUICK) 0.4 mg SL tablet Dissolve 1 tablet under the tongue every 5 minutes as needed. denosumab (PROLIA) 60 mg/mL Inject 1 mL subcutaneously once every [address] Torsten Vann, endocrinology. warfarin (COUMADIN) 2.5 mg tablet Take 1 tablet by mouth once daily. hydrocortisone (CORTEF) 10 mg tablet Take 2 tablets by mouth every morning AND 1 tablet every evening. acetaminophen (TYLENOL) 325 mg tablet Take 650 mg by mouth every 6 hours as needed. FAMILY HISTORY Problem Relation Age of Onset Coronary Artery Disease Mother [place] at 87y.o. Hypertension Mother Stroke (more content not included)... [facility] 07-20-2022 History of Present illness Narrative CC: Patient presents with: F/U 6 months HPI Linda Peralta is a 77 year old female who presents today for above. HTN/ASHD-[facility]. Next follow-up in one week. Medication changes:No Taking all medications as prescribed: Yes Side effects: No Home BP's: Yes normally in the 120's/80's, have been a little lower the past two days. This morning it was 92/61, she felt a little woozy but resolved quickly. Denies: headache, chest pain, palpitations, dyspnea, and peripheral edema. Last 3 Encounter BP Readings: Date: BP: 07/20/2022 102/66 12/20/2021 154/100 12/06/2021 126/86 Osteopenia secondary to trimmer meat steroid use. Managed by endocrinology. Prolia injections every 6 months. Atopic neurodermatitis- managed by [facility] field laboratory operator. Not responsive to current treatments. Started on new medication called Adbry however her pharmacy has not received this yet. VTE- lifelong anticoagulation with Coumadin. INR's managed by order booker. REVIEW OF SYSTEMS See HPI PAST MEDICAL HISTORY Diagnosis Date Anemia 08/26/2009 ASHD (arteriosclerotic heart disease) 04/25/2009 Asthma Benign neoplasm of colon 04/26/2005 Tubular adenoma Chronic diarrhea 03/15/2010 Chronic sphenoidal sinusitis 09/15/2003 Collagenous colitis 03/30/2010 Contact dermatitis and other eczema, due to unspecified cause 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Kyler's disease Cystocele, midline 07/23/2007 Diverticulosis of colon (without mention of hemorrhage) DVT (deep venous thrombosis) ([facility]) 03/23/2012 DVT of lower extremity (deep venous thrombosis) ([facility]) 03/27/09 Esophageal reflux Gallstones 03/06/2016 Hypercalcemia 03/19/2009 Hypertension NSTEMI (non-ST elevated myocardial infarction) ([facility]) April 27, 2009 Cardiac cath normal Other adrenal hypofunction PMH - PAST MEDICAL HISTORY OF Left kidney donated Psoriasis and similar disorder Pure hypercholesterolemia 02/17/2015 Right renal mass 03/27/09 Snoring Syncope Tonic pupillary reaction Unspecified disorder of autonomic nervous system 10/20/2003 Unspecified disorder resulting from impaired renal function 04/26/2005 Unspecified sinusitis (chronic) PAST SURGICAL HISTORY Procedure Laterality Date CATARACT EXTRACTION HX Bilateral 10/2017 and October 2017 COLONOSCOPY W/BIOPSY 03/25/2016 COLONOSCOPY FLX DX W/COLLJ SPEC WHEN PFRMD 05/12/2004 Colonoscopy COLONOSCOPY FLX DX W/COLLJ SPEC WHEN PFRMD 09/20/2007 Colonoscopy COLONOSCOPY FLX DX W/COLLJ SPEC WHEN PFRMD 05/11/2009 Colonoscopy COLONOSCOPY FLX DX W/COLLJ SPEC WHEN PFRMD 03/26/2010 Inpatient at [facility] ESOPHAGOGASTRODUODENOSCOPY TRANSORAL DIAGNOSTIC 02/2002 EGD ESOPHAGOGASTRODUODENOSCOPY TRANSORAL DIAGNOSTIC 05/01/2009 EGD ESOPHAGOGASTRODUODENOSCOPY TRANSORAL DIAGNOSTIC 11/18/2009 EGD, EXC CYST/ABERRANT BREAST TISSUE OPEN 1/> LESION 1960 benign IVC FILTER PERCUTANEOUS 03/31/2009 LAPS SURG CHOLECYSTECTOMY W/CHOLANGIOGRAPHY 03/30/2016 LEFT HEART CATH,PERCUTANEOUS 04/27/2009 Cardiac cath, L heart NEPHRECTOMY PARTIAL 04/2000 Nephrectomy, left NEPHRECTOMY PARTIAL 04/14/09 Right - metanephric adenoma (benign) OOPHORECTOMY PARTIAL/TOTAL UNI/BI Left 1973 Ovarian cystectomy PERCUTANEOUS DRAINAGE RENAL/PERIRENAL ABSC 05/11/2009 Right urinoma SINUSOTOMY SPHENOID W/WO BIOPSY 09/2001 SLING OPER STRES INCONTINENCE 1989 bladder suspension TOTAL ABDOMINAL HYSTERECT W/WO RMVL TUBE OVARY 1979 Hysterectomy, ARIEL, BSO ALLERGIES Cipro [Ciprofloxacin] and Penicillins MEDICATIONS tralokinumab-ldrm (ADBRY) 150 mg/mL injection Inject 4 syringes subcutaneously at week 0, then Inject 2 syringes subcutaneously at week 2, then inject 2 syringes subcutaneously every other week after this. triamcinolone acetonide (KENALOG) 0.1 % cream Apply to affected area twice daily. ruxolitinib (OPZELURA) 1.5 % cream Apply to affected area twice daily. amLODIPine (NORVASC) 2.5 mg tablet Take 2.5 mg by mouth once daily. simvastatin (ZOCOR) 20 mg tablet Take 1 tablet by mouth daily at bedtime. levocetirizine (XYZAL) 5 mg tablet Take 1 tablet by mouth once daily. cholecalciferol (VITAMIN D3) 400 unit tab Take 400 Units by mouth once daily. nitroglycerin sublingual (NITROQUICK) 0.4 mg SL tablet Dissolve 1 tablet under the tongue every 5 minutes as needed. denosumab (PROLIA) 60 mg/mL Inject 1 mL subcutaneously once every [address] Torsten Vann, endocrinology. warfarin (COUMADIN) 2.5 mg tablet Take 1 tablet by mouth once daily. hydrocortisone (CORTEF) 10 mg tablet Take 2 tablets by mouth every morning AND 1 tablet every evening. acetaminophen (TYLENOL) 325 mg tablet Take 650 mg by mouth every 6 hours as needed. FAMILY HISTORY Problem Relation Age of Onset Coronary Artery Disease Mother [place] at 87y.o. Hypertension Mother Stroke Father Coronary Artery Disease Father sudden at 85y.o. Hypertension Sister COPD Sister Clotting Disorder Sister pulmonary embolism Kidney Disease Brother dec.sepsis, kidney transplant. Hypertension Brother DVT Daughter Breast Cancer Daughter Coronary Artery Disease Brother 65 Social History Tobacco Use Smoking status: Never Smokeless tobacco: Never Vaping Use Vaping Use: Never used Substance Use Topics Alcohol use: No Drug use: No PHYSICAL EXAM BP 102/66 Pulse 96 Resp 16 Wt 63 kg (139 lb) BMI 25.91 kg/m General Appearance: well appearing, in no acute distress, alert Heart: regular rate and rhythm, without murmur Lungs: Lungs clear to auscultation, No wheezing, rales or rhonchi Health maintenance reviewed with patient: BP CONTROLLED (<130/80) due on 08/30/2019 HEMOGLOBIN/HEMATOCRIT due on 05/11/2021 ADVANCE DIRECTIVE DISCUSSION due on 02/20/2022 DEPRESSION ASSESSMENT due on 02/20/2022 SERUM CREATININE due on 05/11/2022 ANNUAL PCP TEAM CHRONIC DISEASE VISIT due on 12/20/2022 LDL CHOLESTEROL due on 01/06/2023 DIABETES SCREEN due on 05/11/2024 DTAP,TDAP,TD(2 - Td or Tdap) due on 11/10/2029 BONE DENSITY Completed INFLUENZA Completed SHINGRIX VACCINE Completed COVID-19 VACCINE Completed PNEUMOCOCCAL: 65+ Completed DATA REVIEWED: Most recent labs ASSESSMENT/PLAN: 1. Primary hypertension - ICD9: 401.9, ICD10: I10 (primary diagnosis) - good control - low today, patient asymptomatic at this time. Recommend calling order booker office if continues - Continue current medication(s) - Recommended regular aerobic exercise. - Recommend home blood pressure monitoring, to bring results in on next visit - Goal of BP <130/80 - COMP METABOLIC PANEL - CBC 2. Pure hypercholesterolemia - ICD9: 272.0, ICD10: E78.00 controlled - LIPID PANEL BASIC - COMP METABOLIC PANEL 3. Stage 3b chronic kidney disease (HCC) - ICD9: 585.3, ICD10: N18.32 - Following with nephrology - CBC 4. ASHD (arteriosclerotic heart disease) - ICD9: 414.00, ICD10: I25.10 stable 5. Osteopenia, unspecified location - ICD9: 733.90, ICD10: M85.80 Prolia injections, managed by endocrinology Prescription instructions reviewed with patient as applicable. Potential red flag symptoms discussed with the patient. Reviewed appropriate action plan to take if red flag symptoms occur. Patient agreeable to treatment plan. Rocio Johnson APRN.OUTSIDE PHYSICAL DAMAGE APPRAISER documented in this encounter [facility] 05-25-2022 Note HNO ID: [id number] Author: Ruddy Parra [facility] Service: ? Author Type: Pharmacist Type: Progress Notes Filed: 05/25/2022 5:50 PM Note Text: [facility] received orders for Adbry. We currently do not have access to the medication and are unable to work on benefits investigation. Prior authorization submission will be the responsibility of the provider's office. No action by [facility] at this time. Ruddy Parra, PharmD Clinical Pharmacist [facility] Pool: P [facility] Pool #: [id number] [facility] 05-25-2022 Note HNO ID: [id number] Author: Cheryl Leonardo MD Service: ? Author Type: Physician Type: Progress Notes Filed: 06/06/2022 10:09 AM Note Text: Department of Dermatology Cheryl Leonardo MD 05/25/2022 Last visit in Dermatology: 02/23/2022 Objective/Assessment/Plan 1. Atopic neurodermatitis Related Medications ruxolitinib (OPZELURA) 1.5 % cream Apply to affected area twice daily. Requested Prescriptions Signed Prescriptions Disp Refills tralokinumab-ldrm (ADBRY) 150 mg/mL injection 6 mL 11 Sig: Inject 4 syringes subcutaneously at week 0, then Inject 2 syringes subcutaneously at week 2, then inject 2 syringes subcutaneously every other week after this. The patient has had incomplete control with the Opzelura cream. She had initial improvement with the Dupilumab, but this was short-lived in effectiveness. She has had extensive medication trials without substantial effect. No cause has been identified to date. Pruritus is severe and the lesions are widespread. Trial of Adbry is recommended. We discussed the risks, benefits, alternatives, and expected outcomes concerning the prescribed medications. We answered any patient questions regarding these medications and reviewed their use. Previous medications used: For the prurigo nodularis: betamethasone diproprionate dupilumab -- lack of efficacy triamcinolone prednisone triamcinolone calcipotriene/betamethasone xyzal methotrexate protopic Opzelura UVB phototherapy hydroxyzine Follow-up as noted below or as needed. Chief Complaint: Patient presents with: Dermatitis: Follow up Subjective and Objective No flowsheet data found. HPI: Linda Peralta is a 77 year old female who presents for: -Follow-up on Atopic neurodermatitis Current tx: ruxolitinib (Opzelura) 1.5% cream and occasionally triamcinolone Patient reports her condition has worsened since last visit. More areas are effected. The cream helps some with the itching. She has a difficult time sleeping at night. Past medical history is reviewed. Medication list is reviewed. Physical Exam included: Numerous excoriated, lichenified and indurated papules distributed on the bilateral arms and legs. The patient is unable to stop scratching at these during the visit. Intake completed by Desirae Benedict MA Attending signature: Cheryl Leonardo MD This note is completed at 10:09 AM on 06/06/2022 and reflects the services provided at the time of the appointment. I agree with the Chief Complaint, ROS, and Past Histories independently gathered by the clinical manufacturing support engineer. [facility] 05-25-2022 History of Present illness Narrative Images from the original note were not included. Department of Dermatology Cheryl Leonardo MD 05/25/2022 Last visit in Dermatology: 02/23/2022 Objective/Assessment/Plan 1. Atopic neurodermatitis Related Medications ruxolitinib (OPZELURA) 1.5 % cream Apply to affected area twice daily. Requested Prescriptions Signed Prescriptions Disp Refills tralokinumab-ldrm (ADBRY) 150 mg/mL injection 6 mL 11 Sig: Inject 4 syringes subcutaneously at week 0, then Inject 2 syringes subcutaneously at week 2, then inject 2 syringes subcutaneously every other week after this. The patient has had incomplete control with the Opzelura cream. She had initial improvement with the Dupilumab, but this was short-lived in effectiveness. She has had extensive medication trials without substantial effect. No cause has been identified to date. Pruritus is severe and the lesions are widespread. Trial of Adbry is recommended. We discussed the risks, benefits, alternatives, and expected outcomes concerning the prescribed medications. We answered any patient questions regarding these medications and reviewed their use. Previous medications used: For the prurigo nodularis: betamethasone diproprionate dupilumab -- lack of efficacy triamcinolone prednisone triamcinolone calcipotriene/betamethasone xyzal methotrexate protopic Opzelura UVB phototherapy hydroxyzine Follow-up as noted below or as needed. Chief Complaint: Patient presents with: Dermatitis: Follow up Subjective and Objective No flowsheet data found. HPI: Linda Prealta is a 77 year old female who presents for: -Follow-up on Atopic neurodermatitis Current tx: ruxolitinib (Opzelura) 1.5% cream and occasionally triamcinolone Patient reports her condition has worsened since last visit. More areas are effected. The cream helps some with the itching. She has a difficult time sleeping at night. Past medical history is reviewed. Medication list is reviewed. Physical Exam included: Numerous excoriated, lichenified and indurated papules distributed on the bilateral arms and legs. The patient is unable to stop scratching at these during the visit. Intake completed by Desirae Benedict MA Attending signature: Cheryl Leonardo MD This note is completed at 10:09 AM on 06/06/2022 and reflects the services provided at the time of the appointment. I agree with the Chief Complaint, ROS, and Past Histories independently gathered by the clinical manufacturing support engineer. documented in this encounter [facility] 03-16-2022 Miscellaneous Notes Received fax from [employer]- Prior authorization approval for Opzelura 1.5% cream. This authorization is good until 02/19/2023. Pharmacy notified. Prior authorization requested for Opzelura 1.5% cream via [facility]. Will await determination documented in this encounter [facility] 03-14-[address] Leonardo, This was sent to our pharmacy, however this is something we do not service. Please sign this order to have it sent to patient's preferred pharmacy. Thank you Nito James, RaeganD Clinical Pharmacist, Oncology [facility] P: ; F: Pool: P [facility] Pool #: [id number] documented in this encounter [facility] 02-23-2022 History of Present illness Narrative Images from the original note were not included. Department of Dermatology Cheryl Leonardo MD 02/23/2022 Last visit in Dermatology: 11/25/2021 Objective/Assessment/Plan 1. Atopic neurodermatitis Left Abdomen (side) - Lower, Left Forearm - Posterior, Left Lower Leg - Anterior, Left Upper Arm - Posterior, Left Upper Back, Mid Back, Right Abdomen (side) - Lower, Right Forearm - Posterior, Right Shoulder - Posterior, Right Upper Arm - Posterior, Right Upper Back Inflammatory papules, lichenified with excoriation. Discussed treatment options. We discussed the risks, benefits, alternatives, and expected outcomes concerning the prescribed medications. We answered any patient questions regarding these medications and reviewed their use. ruxolitinib (OPZELURA) 1.5 % cream - Left Abdomen (side) - Lower, Left Forearm - Posterior, Left Lower Leg - Anterior, Left Upper Arm - Posterior, Left Upper Back, Mid Back, Right Abdomen (side) - Lower, Right Forearm - Posterior, Right Shoulder - Posterior, Right Upper Arm - Posterior, Right Upper Back Apply to affected area twice daily. Follow-up as noted below or as needed. Chief Complaint: Patient presents with: Dermatitis Subjective and Objective No flowsheet data found. HPI: Linda Peralta is a 76 year old female who presents for: Follow-up on atopic neurodermatitis. Patient reports no improvement. Used topical steroids, Protopic, Dupixent, betamethasone/calcipotriene without improvement. Past medical history is reviewed. Medication list is reviewed. Physical Exam included: neck, bilateral upper extremities, and bilateral lower extremities The documentation for this note was completed by Cheryl Leonardo MD acting as scribe for Cheryl Leonardo MD. February 23, 2022 3:11 PM Intake completed by Jacinda Kincaid LPN I agree with the Chief Complaint, ROS, and Past Histories independently gathered by the clinical manufacturing support engineer. documented in this encounter [facility] 12-20-2021 Instructions Rocio Johnson APRN.CNP - 12/20/2021 9:17 AM EDT Please call the office after your follow-up with order booker in January for an update on your blood pressure and if any medication changes were made documented in this encounter [facility] 12-20-2021 History of Present illness Narrative Medicare Yearly Visit Medical B eligibilty date 2008 Date of last exam 12/03/20 PAST MEDICAL HISTORY Diagnosis Date Anemia 08/26/2009 ASHD (arteriosclerotic heart disease) 04/25/2009 Asthma Benign neoplasm of colon 04/26/2005 Tubular adenoma Chronic diarrhea 03/15/2010 Chronic sphenoidal sinusitis 09/15/2003 Collagenous colitis 03/30/2010 Contact dermatitis and other eczema, due to unspecified cause 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Navarre's disease Cystocele, midline 07/23/2007 Diverticulosis of colon (without mention of hemorrhage) DVT (deep venous thrombosis) ([facility]) 03/23/2012 DVT of lower extremity (deep venous thrombosis) ([facility]) 03/27/09 Esophageal reflux Gallstones 03/06/2016 Hypercalcemia 03/19/2009 Hypertension NSTEMI (non-ST elevated myocardial infarction) ([facility]) April 27, 2009 Cardiac cath normal Other adrenal hypofunction PMH - PAST MEDICAL HISTORY OF Left kidney donated Psoriasis and similar disorder Pure hypercholesterolemia 02/17/2015 Right renal mass 03/27/09 Snoring Syncope Tonic pupillary reaction Unspecified disorder of autonomic nervous system 10/20/2003 Unspecified disorder resulting from impaired renal function 04/26/2005 Unspecified sinusitis (chronic) PAST SURGICAL HISTORY Procedure Laterality Date CATARACT EXTRACTION HX Bilateral 10/2017 and October 2017 COLONOSCOPY W/BIOPSY 03/25/2016 COLONOSCOPY FLX DX W/COLLJ SPEC WHEN PFRMD 05/12/2004 Colonoscopy COLONOSCOPY FLX DX W/COLLJ SPEC WHEN PFRMD 09/20/2007 Colonoscopy COLONOSCOPY FLX DX W/COLLJ SPEC WHEN PFRMD 05/11/2009 Colonoscopy COLONOSCOPY FLX DX W/COLLJ SPEC WHEN PFRMD 03/26/2010 Inpatient at [facility] ESOPHAGOGASTRODUODENOSCOPY TRANSORAL DIAGNOSTIC 02/2002 EGD ESOPHAGOGASTRODUODENOSCOPY TRANSORAL DIAGNOSTIC 05/01/2009 EGD ESOPHAGOGASTRODUODENOSCOPY TRANSORAL DIAGNOSTIC 11/18/2009 EGD, EXC CYST/ABERRANT BREAST TISSUE OPEN 1/ LESION 1960 benign IVC FILTER PERCUTANEOUS 03/31/2009 LAPS SURG CHOLECYSTECTOMY W/CHOLANGIOGRAPHY 03/30/2016 LEFT HEART CATH,PERCUTANEOUS 04/27/2009 Cardiac cath, L heart NEPHRECTOMY PARTIAL 04/2000 Nephrectomy, left NEPHRECTOMY PARTIAL 04/14/09 Right - metanephric adenoma (benign) OOPHORECTOMY PARTIAL/TOTAL UNI/BI Left 1973 Ovarian cystectomy PERCUTANEOUS DRAINAGE RENAL/PERIRENAL ABSC 05/11/2009 Right urinoma SINUSOTOMY SPHENOID W/WO BIOPSY 09/2001 SLING OPER STRES INCONTINENCE 1989 bladder suspension TOTAL ABDOMINAL HYSTERECT W/WO RMVL TUBE OVARY 1979 Hysterectomy, ARIEL, BSO ALLERGIES: Cipro [Ciprofloxacin] and Penicillins Medications reviewed: Yes FAMILY HISTORY Problem Relation Age of Onset Coronary Artery Disease Mother [place] at 87y.o. Hypertension Mother Stroke Father Coronary Artery Disease Father sudden at 85y.o. Hypertension Sister COPD Sister Clotting Disorder Sister pulmonary embolism Kidney Disease Brother dec.sepsis, kidney transplant. Hypertension Brother DVT Daughter Breast Cancer Daughter Coronary Artery Disease Brother 65 SOCIAL HISTORY: Social History Tobacco Use Smoking status: Never Smokeless tobacco: Never Substance Use Topics Alcohol use: No Drug use: No likes to exercise by walking daily for about 1.5 miles and doing yard work. She watches her diet for sodium, low fat and low cholesterol most of the time. List of current specialists seen: Cardiology-Dr. Marte Nephrology- Dr. Aminata Tarango Marriage And Family Social Worker- Dr. Carpio Endocrinology- Dr. Torsten Vann (osteoporosis), Dr. Strickland (cortef) Dermatology- Dr. Leonardo ([facility]) End of Live Planning discussed including patients advanced directive wishes: Yes I am willing to follow 's advanced directives. Evidence of Cognitive Impairment: No What tool was used to assess the patients cognitive status? MiniCog 5/5. PHQ-2 / Depression screen She in the past two weeks denies having felt down, depressed, hopeless, or with little interest or pleasure in doing things. Functional Ability/Safety Screen 1. Was the patient's timed Up and Go test unsteady or longer than 30 seconds? No 2. Does the patient need help with the phone, transportation, shopping,preparing meals, housework, laundry, medications or managing money? No 3. Does your home have rugs in the hallway, lack of grab bars in the bathroom, lack of handrails on the stairs or have poor lighting? No Hearing Evaluation: normal PHYSICAL EXAM BP 154/100 Pulse 96 Resp 16 Ht 156 cm (5' 1.42 ) Wt 64.4 kg (142 lb) BMI 26.47 kg/m Alert and oriented X 3: YES Body mass index is 26.47 kg/m . ASSESSMENT/PLAN: 1. Medicare annual wellness visit, subsequent - ICD9: V70.0, ICD10: Z00.00 (primary diagnosis) The following prevention plan was discussed during the office visit and provided to the patient: - fall risk reduction - Counseled on healthy diet and regular exercise - Calcium intake with supplements or by diet of 1000 mg/day for under 50, 7645-7409 mg/day for 50+ - Depression screening tool completed and reviewed with patient. Based on score and interview, patient is not at risk for depression and recommended no further intervention at this time. - Patient was counseled [id number] by myself (the billing provider) for the following immunizations and vaccine components, including side effects: COVID-19. Patient consents for immunization and understands risks and benefits. A VIS sheet on each immunization was given to the patient. - follow-up for medicare annual exam in one year 2. Hypertension, unspecified type - ICD9: 401.9, ICD10: I10 - suboptimal control. Patient was just seen by cardiology one week ago and Norvasc 2.5 mg was resumed. Patient has follow-up scheduled 01/24 with cardiology and she will call with an update on BP after this appointment - Continue current medication(s) - Recommend home blood pressure monitoring, to bring results in on next visit - Goal of BP <130/80 3. Pure hypercholesterolemia - ICD9: 272.0, ICD10: E78.00 - LIPID PANEL BASIC 4. Encounter for immunization - ICD9: V03.89, ICD10: Z23 - PFIZER-BIONTECH COVID-19 BIVALENT BOOSTER VACCINE, AGE 12+ YR Rocio Johnson APRN.CNP documented in this encounter [facility] 12-08-2021 Miscellaneous Notes December 08, 2021 PID: [id number] Linda Peralta [address] [place] [address] Dear Ms. Peralta, We are pleased to inform you that the results of your recent breast imaging exam on 12/08/2021 are normal. Early detection of cancer is very important. We also understand recommendations regarding breast cancer screening are controversial. Please discuss with your primary care provider which strategy is best for you and whether a mammogram is right for you. Your imaging studies and report will be kept on file at [facility] as part of your permanent medical record and are available for your continuing care. Thank you for allowing us to help in meeting your health care needs. Sincerely, Dr. Madden Interpreting Radiologist [facility] (Normal over 40) documented in this encounter [facility] 12-08-2021 History of Present illness Narrative Radiology Service Progress Note PATIENT NAME: Linda Peralta DATE OF SERVICE: December 08, 2021 TIME: 12:55 PM PATIENT IDENTITY VERIFICATION COMPLETED USING TWO (2) IDENTIFIERS: Name and Date of confirmed by patient verbally. FALL SCREENING: Has the patient had 2 falls in the last year or 1 fall with injury or currently using an Ambulatory Assistive Device (Walker, Cane, Wheelchair, Crutches, etc.)? No PATIENT GENDER DATA: Female. status: : No status: NO. PATIENT RELEVANT IMPLANT DATA REVIEWED: Not Applicable RADIOLOGY DEPARTMENT: Mammography PERIPHERAL IV DATA: Not applicable SIGNED BY: Jacey Light [employer] December 08, 2021 12:55 PM documented in this encounter [facility] 12-06-2021 History of Present illness Narrative This note was created using [employer]. Subjective Linda Peralta is a 76 year old female who was admitted 11/17-11/18 for acute hypotension, dehydration, elevated troponin, ANGELA on CKD, adrenal insufficiency. She responded to IV fluids, IV steroids. Infection and ACS were ruled out. HTN medications were held. She saw nephrology and renal function was improving and urinary tract infection was found. She was finishing Cipro. She complained of left breast tenderness for a few months. Review of Systems Constitutional: Negative. Respiratory: Negative. Cardiovascular: Negative. Gastrointestinal: Negative. Genitourinary: Negative. Neurological: Negative. 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 Hypercalcemia Ashd (Arteriosclerotic Heart Disease) Dvt (Deep Venous Thrombosis) (Hcc) 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 Chronic Nonallergic Rhinitis Pure hypercholesterolemia Atopic Neurodermatitis Hypertension Generalized Muscle Weakness Stage 3b Chronic Kidney Disease (Hcc) Hypertensive Kidney Disease With Stage 3b Chronic Kidney Disease (Hcc) Current Outpatient Medications Medication Sig ciprofloxacin HCl (CIPRO) 500 mg tablet Take by mouth twice daily. simvastatin (ZOCOR) 20 mg tablet Take 1 tablet by mouth daily at bedtime. Betamethasone-Calcipotriene external suspension Apply 1 application to affected area once daily. For the areas of itching as needed. levocetirizine (XYZAL) 5 mg tablet Take 1 tablet by mouth once daily. betamethasone dipropionate (DIPROSONE) 0.05 % cream Apply to affected areas of arms and legs twice daily for 5 days on, 2 days off, repeat as needed for itching. cholecalciferol (VITAMIN D3) 400 unit tab Take 400 Units by mouth once daily. nitroglycerin sublingual (NITROQUICK) 0.4 mg SL tablet Dissolve 1 tablet under the tongue every 5 minutes as needed. denosumab (PROLIA) 60 mg/mL Inject 1 mL subcutaneously once every [address] Torsten Vann, endocrinology. warfarin (COUMADIN) 2.5 mg tablet Take 1 tablet by mouth once daily. hydrocortisone (CORTEF) 10 mg tablet Take 2 tablets by mouth every morning AND 1 tablet every evening. acetaminophen (TYLENOL) 325 mg tablet Take 650 mg by mouth every 6 hours as needed. No current facility-administered medications for this visit. Objective BP 126/86 (BP Site: Left Arm, BP Position: Sitting, BP Cuff Size: Large Adult) Pulse 84 Temp 36.4 C (97.5 F) (Temporal) Resp 20 Wt 62.6 kg (138 lb) BMI 24.76 kg/m Physical Exam Constitutional: General: She is not in acute distress. Appearance: She is not ill-appearing or diaphoretic. Eyes: Conjunctiva/sclera: Conjunctivae normal. Cardiovascular: Rate and Rhythm: Normal rate and regular rhythm. Heart sounds: No murmur heard. No gallop. Pulmonary: Breath sounds: Normal breath sounds. Chest: Chest wall: No mass or deformity. Breasts: Right: No nipple discharge, skin change or tenderness. Left: Tenderness present. No nipple discharge or skin change. Comments: Fibrocystic changes, symmetric, bilaterally. Musculoskeletal: Right lower leg: No edema. Left lower leg: No edema. Lymphadenopathy: Upper Body: Right upper body: No supraclavicular, axillary or pectoral adenopathy. Left upper body: No supraclavicular, axillary or pectoral adenopathy. Neurological: General: No focal deficit present. Mental Status: She is alert. Assessment and Plan 1. Hypotension due to hypovolemia - ICD9: 458.8, 276.52, ICD10: I95.89, E86.1 (primary diagnosis) Improved. 2. Elevated troponin - ICD9: 790.6, ICD10: R77.8 Resolved. 3. Acute kidney injury (HCC) - ICD9: 584.9, ICD10: N17.9 Improved. 4. Stage 3b chronic kidney disease (HCC) - ICD9: 585.3, ICD10: N18.32 - eGFR: Stable 5. Hypercalcemia - ICD9: 275.42, ICD10: E83.52 Monitored by nephrology. 6. Anticoagulated on Coumadin - ICD9: V58.61, ICD10: Z79.01 Monitored by cardiology. 7. Breast pain, left - ICD9: 611.71, ICD10: N64.4 Fibrocystic. Shared medical decision making was done. We agreed to update screening mammogram. 8. Encounter for screening mammogram for malignant neoplasm of breast - ICD9: V76.12, ICD10: Z12.31 - [facility] SCREENING Amos Floyd MD documented in this encounter [facility] 12-02-2021 Miscellaneous Notes Patient has been identified by name and date of : Yes Patient phones for refill(s): Requested Prescriptions Pending Prescriptions Disp Refills simvastatin (ZOCOR) 20 mg tablet 90 tablet 3 Sig: Take 1 tablet by mouth daily at bedtime. Date of last office visit in primary care: 07/20/21 Last 2 Encounter Wt Readings: Date: Wt: 10/13/2021 62.5 kg (137 lb 12.8 oz) 07/20/2021 62.6 kg (138 lb) Previous labs/tests for medication: Cholesterol: HDL Cholesterol (mg/dL) Date Value 06/09/2020 65 LDL Cholesterol (mg/dL) Date Value 06/09/2020 65 ALT (U/L) Date Value 05/11/2021 20 06/09/2020 15 ALT (SGPT) (U/L) Date Value 07/22/2020 33 Non HDL Cholesterol (mg/dL) Date Value 06/09/2020 85 Please advise. Thank you. Gifty Velazquez LPN Patient has been identified by name and date of : Yes Last office visit in this department: Visit date not found RX INSTRUCTIONS: Patient aware RX will be sent to pharmacy. No need to notify patient. Patient phones requesting refills as follows: last 07/20/21 , [facility] follow up 12/06/21 and [employer]are [facility] 12/20/21 Requested Prescriptions Pending Prescriptions Disp Refills simvastatin (ZOCOR) 20 mg tablet 90 tablet 3 Sig: Take 1 tablet by mouth daily at bedtime. Please review and advise. Va Harris documented in this encounter [facility] 11-25-2021 Instructions Cheryl Leonardo MD - 11/25/2021 10:37 AM EDT Calcipotriene and betamethasone diproprionate suspension. Use daily on areas of itching and the thickened areas on the arms. When the areas are resolved/not itching, hold off using the medication. We have several options if this is not helpful. We could consider using a medication called Crisaborole or Opzelura. These will require prior authorization and may be difficult to get covered by the insurance. The levocetirizine 5 mg tablets may be continued for now. It is fine to use the CeraVe itch relief moisturizers for now, but it may be reasonable to try using the regular CeraVe moisturizer as well. documented in this encounter [facility] 11-25-2021 History of Present illness Narrative Department of Dermatology Cheryl Leonardo MD 11/25/2021 Last visit in Dermatology: 08/25/2021 Objective/Assessment/Plan 1. Atopic neurodermatitis Left Ankle - Anterior, Left Forearm - Anterior, Left Forearm - Posterior, Right Ankle - Anterior Scattered, pruritic excoriated scaly papules Related Medications triamcinolone acetonide (KENALOG) 0.1 % cream Apply 1 application to affected area twice daily. dupilumab 300 mg/2 mL subcutaneous syringe (GuardiCore) Inject 300 mg SQ every 2 weeks Requested Prescriptions Signed Prescriptions Disp Refills Betamethasone-Calcipotriene external suspension 60 g 3 Sig: Apply 1 application to affected area once daily. For the areas of itching as needed. We discussed the risks, benefits, alternatives, and expected outcomes concerning the prescribed medications. We answered any patient questions regarding these medications and reviewed their use. Patient Instructions Calcipotriene and betamethasone diproprionate suspension. Use daily on areas of itching and the thickened areas on the arms. When the areas are resolved/not itching, hold off using the medication. We have several options if this is not helpful. We could consider using a medication called Crisaborole or Opzelura. These will require prior authorization and may be difficult to get covered by the insurance. The levocetirizine 5 mg tablets may be continued for now. It is fine to use the CeraVe itch relief moisturizers for now, but it may be reasonable to try using the regular CeraVe moisturizer as well. Follow-up as noted below or as needed. Chief Complaint: Patient presents with: Rash Subjective and Objective No flowsheet data found. HPI: Linda Peralta is a 76 year old female who presents for: -Follow-up atopic neurodermatitis on bilateral lower and upper extremities (has spread to upper extremities since last visit) -Patient is currently using Betamethasone as needed for itching flares - stops itching if uses twice a day -Patient uses CeraVe itch relief moisturizing cream twice daily -Patient takes levocetirizine 5 mg once daily -Patient reports symptoms have remained the same since last office visit 08/2021 -Previously on Dupixent was not effective Past medical history is reviewed. Medication list is reviewed. Physical Exam included: bilateral upper extremities and bilateral lower extremities The documentation for this note was completed by Brii Vargas acting as scribe for Cheryl Leonardo MD. November 25, 2021 10:28 AM Intake completed by Nathaly Leggett LPN Attending signature: TEACHING PHYSICIAN NOTE OF PERSONAL INVOLVEMENT IN CARE: I have personally seen and examined the patient and performed the medical decision-making components. I have reviewed the medical student documentation and verified the findings in the note as written. Any additions or changes are noted in bold/italics. In addition, as applicable, I agree with the Chief Complaint, ROS, and Past Histories independently gathered by the clinical manufacturing support engineer and the remaining scribed note accurately describes my personal service to the patient. Signature: Cheryl Leonardo Date: 11/25/2021 Time: 10:54 PM documented in this encounter [facility] 10-28-2021 History of Present illness Narrative [facility] Enrollment Provider Action/FYI: melvam x 1 and Patient referred by: PCC/PCP referral Contact made with patient: No - Left Message: Hi my name is Luciana Zuniga RN and I am calling from the [facility] on behalf of your PCP, Amso Floyd MD. We are excited to share with you a new program to help you manage your health. Please call me back at [phone] between the hours of 8am-5pm Monday-Monday. You will receive another phone call from me within the next two business days. I hope you can take the time to speak with me. (Keep encounter open and attempt 2nd outreach in two business days from today) END OUTREACH documented in this encounter [facility] 10-14-2021 Miscellaneous Notes Patient returned call and went over results, notes from express care provider with understanding. Phone call placed, brief message to contact a nurse. Sarah Suarez LPN You tested positive for COVID-19 Follow the CDC guidelines for isolation: 1. Everyone, regardless of vaccination status, should stay home for 5 days. 2. If you have no symptoms or your symptoms are resolving after 5 days, you can leave your house. 3. Continue to wear a mask around others for 5 additional days. If you have a fever, continue to stay home until your fever resolves, even if it is longer than 5 days. Please monitor your symptoms, and for any worrisome symptoms, call your primary care provider or schedule a visit with [facility]. A test is not recommended to return to work/school when meeting the above criteria. If you desire treatment contact pcp, can do online express care visit, or can return to express care. documented in this encounter [facility] 10-13-2021 History of Present illness Narrative Subjective Cough Associated symptoms include headaches, sore throat and myalgias. Pertinent negatives include no chills and no shortness of breath. Linda Peralta is a 76 year old female who presents with symptom onset last night. Fever (>100.4F): No Chills: No Cough: YES Shortness of breath: No Difficulty breathing: No Fatigue: No Muscle aches:YES Headache: YES New loss of smell or taste: No Sore throat: YES Nasal congestion: YES Rhinorrhea: YES Nausea: No Vomiting: No Diarrhea: No Recent sick contacts: No Contact with anyone confirmed or probable COVID-19 infection in the last 14 days? No Family with confirmed COVID-19 infection? No She has not taken any medication for her symptoms at home. Review of Systems Constitutional: Negative for chills and fever. HENT: Positive for congestion and sore throat. Respiratory: Positive for cough. Negative for shortness of breath. Cardiovascular: Negative. Gastrointestinal: Negative for diarrhea, nausea and vomiting. Musculoskeletal: Positive for myalgias. Neurological: Positive for headaches. BP 124/84 Pulse 111 Temp 37.1 C (98.7 F) (Tympanic) Resp 18 Wt 62.5 kg (137 lb 12.8 oz) SpO2 97% BMI 24.72 kg/m PAST MEDICAL HISTORY Diagnosis Date Anemia 08/26/2009 ASHD (arteriosclerotic heart disease) 04/25/2009 Asthma Benign neoplasm of colon 04/26/2005 Tubular adenoma Chronic diarrhea 03/15/2010 Chronic sphenoidal sinusitis 09/15/2003 Collagenous colitis 03/30/2010 Contact dermatitis and other eczema, due to unspecified cause 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Navarre's disease Cystocele, midline 07/23/2007 Diverticulosis of colon (without mention of hemorrhage) DVT (deep venous thrombosis) (HCC) 03/23/2012 DVT of lower extremity (deep venous thrombosis) (HCC) 2/5/10 Esophageal reflux Gallstones 03/06/2016 Hypercalcemia 03/19/2009 Hypertension NSTEMI (non-ST elevated myocardial infarction) (HCC) April 27, 2009 Cardiac cath normal Other adrenal hypofunction PMH - PAST MEDICAL HISTORY OF Left kidney donated Psoriasis and similar disorder Pure hypercholesterolemia 02/17/2015 Right renal mass 03/27/09 Snoring Syncope Tonic pupillary reaction Unspecified disorder of autonomic nervous system 10/20/2003 Unspecified disorder resulting from impaired renal function 04/26/2005 Unspecified sinusitis (chronic) PAST SURGICAL HISTORY Procedure Laterality Date CATARACT EXTRACTION HX Bilateral 10/2017 and October 2017 COLONOSCOPY W/BIOPSY 03/25/2016 COLONOSCOPY FLX DX W/COLLJ SPEC WHEN PFRMD 05/12/2004 Colonoscopy COLONOSCOPY FLX DX W/COLLJ SPEC WHEN PFRMD 09/20/2007 Colonoscopy COLONOSCOPY FLX DX W/COLLJ SPEC WHEN PFRMD 05/11/2009 Colonoscopy COLONOSCOPY FLX DX W/COLLJ SPEC WHEN PFRMD 03/26/2010 Inpatient at [facility] ESOPHAGOGASTRODUODENOSCOPY TRANSORAL DIAGNOSTIC 02/2002 EGD ESOPHAGOGASTRODUODENOSCOPY TRANSORAL DIAGNOSTIC 05/01/2009 EGD ESOPHAGOGASTRODUODENOSCOPY TRANSORAL DIAGNOSTIC 11/18/2009 EGD, EXC CYST/ABERRANT BREAST TISSUE OPEN LESION 1960 benign IVC FILTER PERCUTANEOUS 03/31/2009 LAPS SURG CHOLECYSTECTOMY W/CHOLANGIOGRAPHY 03/30/2016 LEFT HEART CATH,PERCUTANEOUS 04/27/2009 Cardiac cath, L heart NEPHRECTOMY PARTIAL 04/2000 Nephrectomy, left NEPHRECTOMY PARTIAL 04/14/09 Right - metanephric adenoma (benign) OOPHORECTOMY PARTIAL/TOTAL UNI/BI Left 1973 Ovarian cystectomy PERCUTANEOUS DRAINAGE RENAL/PERIRENAL ABSC 05/11/2009 Right urinoma SINUSOTOMY SPHENOID W/WO BIOPSY 09/2001 SLING OPER STRES INCONTINENCE 1989 bladder suspension TOTAL ABDOMINAL HYSTERECT W/WO RMVL TUBE OVARY 1979 Hysterectomy, ARIEL, BSO ALLERGIES Cipro [Ciprofloxacin] and Penicillins MEDICATIONS levocetirizine (XYZAL) 5 mg tablet Take 1 tablet by mouth once daily. betamethasone dipropionate (DIPROSONE) 0.05 % cream Apply to affected areas of arms and legs twice daily for 5 days on, 2 days off, repeat as needed for itching. cholecalciferol (VITAMIN D3) 400 unit tab Take 400 Units by mouth once daily. amLODIPine (NORVASC) 2.5 mg tablet Take 1 tablet by mouth once daily. simvastatin (ZOCOR) 20 mg tablet Take 1 tablet by mouth daily at bedtime. nitroglycerin sublingual (NITROQUICK) 0.4 mg SL tablet Dissolve 1 tablet under the tongue every 5 minutes as needed. losartan (COZAAR) 50 mg tablet Take 1 tablet by mouth once daily. dupilumab 300 mg/2 mL subcutaneous syringe (DUPIXENT) Inject 300 mg SQ every 2 weeks ketoconazole (NIZORAL) 2 % shampoo Lather onto scalp and let sit 5 minutes before rinsing. denosumab (PROLIA) 60 mg/mL Inject 1 mL subcutaneously once every [address] Torsten Vann, endocrinology. warfarin (COUMADIN) 2.5 mg tablet Take 1 tablet by mouth once daily. hydrocortisone (CORTEF) 10 mg tablet Take 2 tablets by mouth every morning AND 1 tablet every evening. acetaminophen (TYLENOL) 325 mg tablet Take 650 mg by mouth every 6 hours as needed. triamcinolone acetonide (KENALOG) 0.1 % cream Apply 1 application to affected area twice daily. FAMILY HISTORY Problem Relation Age of Onset Coronary Artery Disease Mother [place] at 87y.o. Hypertension Mother Stroke Father Coronary Artery Disease Father sudden at 85y.o. Hypertension Sister COPD Sister Clotting Disorder Sister pulmonary embolism Kidney Disease Brother dec.sepsis, kidney transplant. Hypertension Brother DVT Daughter Breast Cancer Daughter Coronary Artery Disease Brother 65 Social History Tobacco Use Smoking status: Never Smokeless tobacco: Never Substance Use Topics Alcohol use: No Drug use: No Objective Physical Exam Vitals and nursing note reviewed. Cardiovascular: Rate and Rhythm: Normal rate and regular rhythm. Heart sounds: Normal heart sounds. Pulmonary: Effort: Pulmonary effort is normal. No respiratory distress. Breath sounds: Normal breath sounds. No wheezing or rales. Skin: General: Skin is warm and dry. Findings: No erythema or rash. Neurological: Mental Status: She is alert. ASSESSMENT/PLAN: 1. Suspected COVID-19 virus infection - ICD9: V01.79, ICD10: Z20.822 - COVID WITH FLUA+B, ROUTINE - Follow-up with your PCP in 3-5 days if symptoms have not improved or sooner if symptoms worsen - Discussed red flags and need for immediate medical evaluation if any occur. - Discussed supportive care treatment with fluids, rest and analgesia. - Discussed expected course of illness Irene Mendenhall APRN.CNP documented in this encounter [facility] 10-13-2021 Instructions Irene Mendenhall APRN.CNP - 10/13/2021 1:58 PM EDT ASSESSMENT/PLAN: 1. Suspected COVID-19 virus infection - ICD9: V01.79, ICD10: Z20.822 - COVID WITH FLUA+B, ROUTINE - Follow-up with your PCP in 3-5 days if symptoms have not improved or sooner if symptoms worsen - Discussed red flags and need for immediate medical evaluation if any occur. - Discussed supportive care treatment with fluids, rest and analgesia. - Discussed expected course of illness Irene Mendenhall APRN.CNP Beginning Home Isolation Isolation is used to separate people infected with SARS-CoV-2, the virus that causes COVID-19, from people who are not infected. People who are in isolation should stay home until it s safe for them to be around others. In the home, anyone sick or infected should separate themselves from others by staying in a specific sick room or area and using a separate bathroom (if available). Isolation or Quarantine: What's the difference? Quarantine keeps someone who might have been exposed to the virus away from others. Isolation keeps someone who is infected with the virus away from others, even in their home. Who needs to isolate People who have COVID-19 People who have symptoms of COVID-19 and are able to recover at home People who have no symptoms (are asymptomatic) but have tested positive for infection with SARS-CoV-2 Steps to take Stay home except to get medical care Monitor your symptoms. Stay in a separate room from other household members, if possible Use a separate bathroom, if possible Avoid contact with other members of the household and pets Don t share personal household items, like cups, towels, and utensils Wear a mask when around other people, if you are able to When to seek emergency medical attention Look for emergency warning signs* for COVID-19. If someone is showing any of these signs, seek emergency medical care immediately: Trouble breathing Persistent pain or pressure in the chest New confusion Inability to wake or stay awake Bluish lips or face *This list is not all possible symptoms. Please call your medical provider for any other symptoms that are severe or concerning to you. Call 911 or call ahead to your local emergency facility: Notify the slackline operator that you are seeking care for someone who has or may have COVID-19. Ending Home Isolation - When you can be around others after you had or likely had COVID-19 When you can be around others after you had or likely had COVID-19 If You Test Positive for COVID-19 (Isolation) Everyone, regardless of vaccination status: Stay home for 5 days. Note: Day 0 is your first day of symptoms or the date of collection of a positive viral test if no symptoms. Day 1 is the first full day after symptoms developed or test specimen was collected. If you have no symptoms or your symptoms are resolving after 5 days, you can leave your house. Continue to wear a mask around others for 5 additional days. If you have a fever, continue to stay home until your fever resolves, even if it is longer than 5 days. If You Were Exposed to Someone with COVID-19 (Quarantine) If you: 1. Have been boosted OR 2. Completed the primary series of Pfizer or Moderna vaccine within the last 6 months OR 3. Completed the primary series of J&J vaccine within the last 2 months THEN: 1. Wear a mask around others for 10 days. 2. Test on day 5, if possible. If you develop symptoms get a test and stay home. If You Were Exposed to Someone with COVID-19 (Quarantine) If you: 1. Completed the primary series of Pfizer or Moderna vaccine over 6 months ago and are not boosted OR 2. Completed the primary series of J&J over 2 months ago and are not boosted OR 3. Are unvaccinated THEN: 1. Stay home for 5 days. After that continue to wear a mask around others for 5 additional days. 2. If you can't quarantine you must wear a mask for 10 days. 3. Test on day 5 if possible. If you develop symptoms get a test and stay home. I had COVID-19 or I tested positive for COVID-19 and I have a weakened immune system If you have a weakened immune system (immunocompromised) due to a health condition or medication, you might need to stay home and isolate longer than 10 days. Talk to your healthcare provider for more information. Your doctor may work with an infectious disease expert at your local health department to determine when you can be around others. How to Manage Common Symptoms Associated with COVID for Adults Fever- Fever is a temperature over 100.4 F and can occur when the body is fighting an infection. To help treat a fever: Drink plenty of fluids and stay well hydrated. Eat small amounts of easy to digest food. Rest. Your body needs rest to recover, but getting up and moving around the house frequently is a good idea. You should try to continue doing your normal daily activities (bathing, toileting, grooming, cooking), though you will probably feel tired, and need to rest often. Avoid any heavy activity or exercise, as this will increase your body temperature. Dress in light clothing and stay covered in a light sheet. Keep the room temperature cool. Take a slightly warm (not cold or cool) bath, or apply damp washcloths to the forehead and wrists. Cough- Cough is a common symptom associated with COVID and can be bothersome. To help treat a cough: Stay well hydrated. Try warm water or tea with lemon and/or honey to help soothe the cough. Use a humidifier to add moisture to the air. Try a product with menthol, like a cough drop or a rub for your chest such as Vicks, which can help reduce cough. Try cough drops. Avoid smoking and other strong odors or perfumes. Try breathing exercises to keep your lungs open and clear. Take a big deep breath through your nose and hold for 5 seconds before slowly releasing. Repeat frequently, while you are awake. Congestion- Runny nose or nasal congestion can occur with COVID. Treatment can help relieve symptoms: Try OTC nasal saline spray, or nasal saline rinse to relieve mucus congestion. Nasal strips can help keep nasal passages open, to increase airflow. Elevating your head with an extra pillow in bed can help reduce congestion. Using a humidifier can increase moisture in the air, and make breathing easier. Sore Throat- Another common symptom with COVID, can be managed at home by: Stay well hydrated. Gargle with salt water - mix teaspoon salt with 1 cup of warm water and gargle. This helps to loosen mucus in the back of the throat and may reduce discomfort. Try ice chips, popsicles or lozenges to soothe the throat. Nausea/Vomiting/Diarrhea- These are common symptoms, and staying hydrated is most important. If you are nauseous or vomiting, start with small sips of water every 10-15 minutes and increase as tolerated. You can try sucking an ice cube too. If tolerating, you can try pedialyte or Gatorade, or flat sprite or katlyn-chandana. Start slowly and increase as you are able to. Instead of meals, try smaller, more frequent snacks. Try eating bland foods like crackers, toast, rice, and applesauce. Avoid spicy, greasy or fried foods and dairy containing foods. Even if you aren't feeling hungry due to lack of smell or taste, it is important to try to take in some food when you are able. After drinking and eating, rest in an upright position for up to two hours as needed to help decrease nauseous feelings. Try closing your eyes, avoid moving and watching TV. Avoid strong odors that can make you feel more nauseated. When to seek emergency medical attention Look for emergency warning signs for COVID-19. If having any of these symptoms, seek emergency medical care immediately: Trouble breathing Persistent pain or pressure in the chest New confusion Inability to wake or stay awake Bluish lips or face *This list is not all possible symptoms. Please call your medical provider for any other symptoms that are severe or concerning to you. documented in this encounter [facility] 08-25-2021 Instructions Chandni Noriega PA-C - 08/25/2021 1:44 PM EDT Images from the original note were not included. documented in this encounter [facility] 08-25-2021 History of Present illness Narrative Department of Dermatology Chandni Noriega MS, PA-C 08/25/2021 Chief Complaint: Patient presents with: Derm Problem HPI Linda Peralta is a 76 year old female who presents for: - F/u seborrheic keratosis and atopic neurodermatitis - THELMA with Chandni Noriega MS, REJI on 11/11/20 - SKs treated with LN2 last visit and remain itchy, bothersome - Patient continues Triamcinolone BID (needs refill) and Dupixent for dermatitis (little improvement) - Previously tried phototherapy with no improvement - Biopsied in 2019 A. 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 B. Skin, left lateral arm, punch biopsy dif: Negative direct immunofluorescence, see comment. JK/MGU/gp 2018 Past medical history is reviewed. Medication list is reviewed. Dupixent ROS: Skin as above. Objective/Assessment/Plan Rivas Skin Type II The patient is a pleasant female in no apparent distress. Alert and oriented x 3. A skin exam of the bilateral upper extremities and bilateral lower extremities was significant for: 1. Atopic neurodermatitis (8) Objective Left Forearm - Posterior (2), Left Lower Leg - Anterior (2), Right Forearm - Posterior (2), Right Lower Leg - Anterior (2): Few erythematous papules and hypertrophic nodules to bilateral forearms and bilateral lower extremities -trial clobetasol instead of TAC 0.1% -unclear etiology -advised following up with Dr. Leonardo if symptoms persist or worsen despite treatment -r/b/a for the medication(s) including possible side effects discussed and reviewed with patient. Other Related Medications triamcinolone acetonide (KENALOG) 0.1 % cream dupilumab 300 mg/2 mL subcutaneous syringe (DUPIXENT) Follow-up as noted in Plan or as needed. Intake completed by Nathaly Leggett LPN I agree with the Chief Complaint and Past Histories independently gathered by the clinical manufacturing support engineer. Chandni Noriega MS, REJI documented in this encounter [facility] 07-20-2021 History of Present illness Narrative This note was created using Drawn to Scaleriter. Subjective Linda Peralta is a 76 year old female. She was doing well, and was active moving. She walked regularly. 3 weeks ago, her right hip started hurting with ambulation. This resolved, and now her left hip was bothersome. She denied any falls or injury. Her hypertension was controlled. Amlodipine was added by [facility]. Review of Systems Constitutional: Negative for fever and unexpected weight change. HENT: Negative for congestion and sore throat. Respiratory: Negative for cough and shortness of breath. Cardiovascular: Negative for chest pain, palpitations and leg swelling. Gastrointestinal: Negative. Musculoskeletal: Negative for gait problem. Neurological: Negative. 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 Hypercalcemia Ashd (Arteriosclerotic Heart Disease) Dvt (Deep Venous Thrombosis) (Hcc) 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 Chronic Nonallergic Rhinitis Pure hypercholesterolemia Atopic Neurodermatitis Hypertension Generalized Muscle Weakness Stage 3b Chronic Kidney Disease (Hcc) Hypertensive Kidney Disease With Stage 3b Chronic Kidney Disease (Hcc) Current Outpatient Medications Medication Sig cholecalciferol (VITAMIN D-3) 400 unit tab Take 400 Units by mouth once daily. simvastatin (ZOCOR) 20 mg tablet Take 1 tablet by mouth daily at bedtime. nitroglycerin sublingual (NITROQUICK) 0.4 mg SL tablet Dissolve 1 tablet under the tongue every 5 minutes as needed. losartan (COZAAR) 50 mg tablet Take 1 tablet by mouth once daily. dupilumab 300 mg/2 mL subcutaneous syringe (DUPIXUndo Software) Inject 300 mg SQ every 2 weeks ketoconazole (NIZORAL) 2 % shampoo Lather onto scalp and let sit 5 minutes before rinsing. denosumab (PROLIA) 60 mg/mL Inject 1 mL subcutaneously once every [address] Torsten Vann, endocrinology. triamcinolone acetonide (KENALOG) 0.1 % cream Apply 1 application to affected area twice daily. warfarin (COUMADIN) 2.5 mg tablet Take 1 tablet by mouth once daily. hydrocortisone (CORTEF) 10 mg tablet Take 2 tablets by mouth every morning AND 1 tablet every evening. acetaminophen (TYLENOL) 325 mg tablet Take 650 mg by mouth every 6 hours as needed. amLODIPine (NORVASC) 2.5 mg tablet Take 1 tablet by mouth once daily. No current facility-administered medications for this visit. Objective BP 114/68 (BP Site: Left Arm, BP Position: Sitting, BP Cuff Size: Large Adult) Pulse 72 Temp 36.2 C (97.1 F) (Temporal Artery) Resp 16 Wt 62.6 kg (138 lb) BMI 24.76 kg/m Physical Exam Constitutional: Appearance: She is not ill-appearing. Cardiovascular: Rate and Rhythm: Normal rate and regular rhythm. Heart sounds: No murmur heard. No gallop. Pulmonary: Effort: Pulmonary effort is normal. Breath sounds: Normal breath sounds. Musculoskeletal: Lumbar back: Normal. No tenderness. Negative right straight leg raise test and negative left straight leg raise test. Right hip: Normal. No tenderness or crepitus. Normal range of motion. Normal strength. Left hip: Normal. No tenderness or crepitus. Normal range of motion. Normal strength. Right lower leg: No edema. Left lower leg: No edema. Neurological: Mental Status: She is alert. Component Latest Ref Rng & Units 05/11/2021 Protein, Total 6.3 - 8.0 g/dL 6.4 Albumin 3.9 - 4.9 g/dL 3.8 (L) Calcium 8.5 - 10.2 mg/dL 9.4 Bilirubin, Total 0.2 - 1.3 mg/dL 0.6 Alkaline Phosphatase 34 - 123 U/L 75 AST 13 - 35 U/L 33 ALT 7 - 38 U/L 20 Glucose 74 - 99 mg/dL 56 (L) BUN 7 - 21 mg/dL 37 (H) Creatinine 0.58 - 0.96 mg/dL 1.70 (H) Sodium 136 - 144 mmol/L 141 Potassium 3.7 - 5.1 mmol/L 4.2 Chloride 97 - 105 mmol/L 109 (H) CO2 22 - 30 mmol/L 18 (L) Anion Gap 9 - 18 mmol/L 14 eGFR >=60 mL/min/1.73m 31 (L) Vitamin D 25 Hydroxy 31.0 - 80.0 ng/mL 32.8 TSH 0.270 - 4.200 mIU/L 1.830 Cortisol 4.8 - 19.5 ug/dL 1.2 (L) Assessment and Plan 1. Adrenal hypofunction (HCC) - ICD9: 255.41, ICD10: E27.40 (primary diagnosis) Stable. 2. Primary hypertension - ICD9: 401.9, ICD10: I10 - good control 3. ASHD (arteriosclerotic heart disease) - ICD9: 414.00, ICD10: I25.10 Stable. 4. Hip pain - ICD9: 719.45, ICD10: M25.559 Migrating. Likely bursitis. Analgesics as needed. 5. 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 Currently chest pain free and feeling better . Elevation of cardiac enzymes 04/25/200908/2009 Overview: Constitent with significant NSTEMI or late presenting STEMI. Currently CP free without STelevation on EKG so no indication for emergent catheterization. Currently presents with moderately decompensated HF of unknown duration. Exam c/w warm and wet physiology. - admit CICU - follow cardiac enzymes - TTE - heparin, ASA, plavix 300, atorvastatin - plan [facility] tomorrow. Hypokalemia 04/09/2009 05/14/2009 Overview: -Replete. Other specified pre-operative examination 200905/14/2009 DVT of lower extremity (deep venous thrombosis) 03/28/2009 09/05/2011 Overview: PE protocol negative for PE - heparin gtt Right renal mass 03/28/2009 08/26/2009 Overview: -continue current management as per urology c/s. 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 04/26/2005 07/18/2008 Contact dermatitis and other eczema, due to unspecified cause 07/18/2008 documented as of this encounter (statuses as of 08/25/2021) [facility] History of Past illness Narrative* Problem Noted Date Resolved Date Pain of upper abdomen 03/10/2016 02/27/2017 Personal history of colonic polyps 03/10/2016 02/27/2017 Gallstones 03/06/2016 08/24/2016 Collagenous colitis 03/30/2010 03/03/2011 Chronic diarrhea 03/15/2010 03/03/2011 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 Currently chest pain free and feeling better . Elevation of cardiac enzymes 04/25/200908/2009 Overview: Constitent with significant NSTEMI or late presenting STEMI. Currently CP free without STelevation on EKG so no indication for emergent catheterization. Currently presents with moderately decompensated HF of unknown duration. Exam c/w warm and wet physiology. - admit CICU - follow cardiac enzymes - TTE - heparin, ASA, plavix 300, atorvastatin - plan [facility] tomorrow. Hypokalemia 04/09/2009 05/14/2009 Overview: -Replete. Other specified pre-operative examination 200905/14/2009 DVT of lower extremity (deep venous thrombosis) 03/28/2009 09/05/2011 Overview: PE protocol negative for PE - heparin gtt Right renal mass 03/28/2009 08/26/2009 Overview: -continue current management as per urology c/s. 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 04/26/2005 07/18/2008 Contact dermatitis and other eczema, due to unspecified cause 07/18/2008 documented as of this encounter (statuses as of 10/13/2021) [facility] History of Past illness Narrative* Problem Noted Date Resolved Date Pain of upper abdomen 03/10/2016 02/27/2017 Personal history of colonic polyps 03/10/2016 02/27/2017 Gallstones 03/06/2016 08/24/2016 Collagenous colitis 03/30/2010 03/03/2011 Chronic diarrhea 03/15/2010 03/03/2011 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 Currently chest pain free and feeling better . Elevation of cardiac enzymes 04/25/200908/2009 Overview: Constitent with significant NSTEMI or late presenting STEMI. Currently CP free without STelevation on EKG so no indication for emergent catheterization. Currently presents with moderately decompensated HF of unknown duration. Exam c/w warm and wet physiology. - admit CICU - follow cardiac enzymes - TTE - heparin, ASA, plavix 300, atorvastatin - plan [facility] tomorrow. Hypokalemia 04/09/2009 05/14/2009 Overview: -Replete. Other specified pre-operative examination 200905/14/2009 DVT of lower extremity (deep venous thrombosis) 03/28/2009 09/05/2011 Overview: PE protocol negative for PE - heparin gtt Right renal mass 03/28/2009 08/26/2009 Overview: -continue current management as per urology c/s. 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 04/26/2005 07/18/2008 Contact dermatitis and other eczema, due to unspecified cause 07/18/2008 documented as of this encounter (statuses as of 10/14/2021) [facility] History of Past illness Narrative* Problem Noted Date Resolved Date Pain of upper abdomen 03/10/2016 02/27/2017 Personal history of colonic polyps 03/10/2016 02/27/2017 Gallstones 03/06/2016 08/24/2016 Collagenous colitis 03/30/2010 03/03/2011 Chronic diarrhea 03/15/2010 03/03/2011 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 Currently chest pain free and feeling better . Elevation of cardiac enzymes 04/25/200908/2009 Overview: Constitent with significant NSTEMI or late presenting STEMI. Currently CP free without STelevation on EKG so no indication for emergent catheterization. Currently presents with moderately decompensated HF of unknown duration. Exam c/w warm and wet physiology. - admit CICU - follow cardiac enzymes - TTE - heparin, ASA, plavix 300, atorvastatin - plan [facility] tomorrow. Hypokalemia 04/09/2009 05/14/2009 Overview: -Replete. Other specified pre-operative examination 200905/14/2009 DVT of lower extremity (deep venous thrombosis) 03/28/2009 09/05/2011 Overview: PE protocol negative for PE - heparin gtt Right renal mass 03/28/2009 08/26/2009 Overview: -continue current management as per urology c/s. 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 04/26/2005 07/18/2008 Contact dermatitis and other eczema, due to unspecified cause 07/18/2008 documented as of this encounter (statuses as of 10/28/2021) [facility] History of Past illness Narrative* Problem Noted Date Resolved Date Pain of upper abdomen 03/10/2016 02/27/2017 Personal history of colonic polyps 03/10/2016 02/27/2017 Gallstones 03/06/2016 08/24/2016 Collagenous colitis 03/30/2010 03/03/2011 Chronic diarrhea 03/15/2010 03/03/2011 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 Currently chest pain free and feeling better . Elevation of cardiac enzymes 04/25/200908/2009 Overview: Constitent with significant NSTEMI or late presenting STEMI. Currently CP free without STelevation on EKG so no indication for emergent catheterization. Currently presents with moderately decompensated HF of unknown duration. Exam c/w warm and wet physiology. - admit CICU - follow cardiac enzymes - TTE - heparin, ASA, plavix 300, atorvastatin - plan [facility] tomorrow. Hypokalemia 04/09/2009 05/14/2009 Overview: -Replete. Other specified pre-operative examination 200905/14/2009 DVT of lower extremity (deep venous thrombosis) 03/28/2009 09/05/2011 Overview: PE protocol negative for PE - heparin gtt Right renal mass 03/28/2009 08/26/2009 Overview: -continue current management as per urology c/s. 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 04/26/2005 07/18/2008 Contact dermatitis and other eczema, due to unspecified cause 07/18/2008 documented as of this encounter (statuses as of 11/26/2021) [facility] History of Past illness Narrative* Problem Noted Date Resolved Date Pain of upper abdomen 03/10/2016 02/27/2017 Personal history of colonic polyps 03/10/2016 02/27/2017 Gallstones 03/06/2016 08/24/2016 Collagenous colitis 03/30/2010 03/03/2011 Chronic diarrhea 03/15/2010 03/03/2011 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 Currently chest pain free and feeling better . Elevation of cardiac enzymes 04/25/200908/2009 Overview: Constitent with significant NSTEMI or late presenting STEMI. Currently CP free without STelevation on EKG so no indication for emergent catheterization. Currently presents with moderately decompensated HF of unknown duration. Exam c/w warm and wet physiology. - admit CICU - follow cardiac enzymes - TTE - heparin, ASA, plavix 300, atorvastatin - plan [facility] tomorrow. Hypokalemia 04/09/2009 05/14/2009 Overview: -Replete. Other specified pre-operative examination 200905/14/2009 DVT of lower extremity (deep venous thrombosis) 03/28/2009 09/05/2011 Overview: PE protocol negative for PE - heparin gtt Right renal mass 03/28/2009 08/26/2009 Overview: -continue current management as per urology c/s. 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 04/26/2005 07/18/2008 Contact dermatitis and other eczema, due to unspecified cause 07/18/2008 documented as of this encounter (statuses as of 12/03/2021) [facility] History of Past illness Narrative* Problem Noted Date Resolved Date Pain of upper abdomen 03/10/2016 02/27/2017 Personal history of colonic polyps 03/10/2016 02/27/2017 Gallstones 03/06/2016 08/24/2016 Collagenous colitis 03/30/2010 03/03/2011 Chronic diarrhea 03/15/2010 03/03/2011 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 Currently chest pain free and feeling better . Elevation of cardiac enzymes 04/25/200908/2009 Overview: Constitent with significant NSTEMI or late presenting STEMI. Currently CP free without STelevation on EKG so no indication for emergent catheterization. Currently presents with moderately decompensated HF of unknown duration. Exam c/w warm and wet physiology. - admit CICU - follow cardiac enzymes - TTE - heparin, ASA, plavix 300, atorvastatin - plan [facility] tomorrow. Hypokalemia 04/09/2009 05/14/2009 Overview: -Replete. Other specified pre-operative examination 200905/14/2009 DVT of lower extremity (deep venous thrombosis) 03/28/2009 09/05/2011 Overview: PE protocol negative for PE - heparin gtt Right renal mass 03/28/2009 08/26/2009 Overview: -continue current management as per urology c/s. 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 04/26/2005 07/18/2008 Contact dermatitis and other eczema, due to unspecified cause 07/18/2008 documented as of this encounter (statuses as of 12/06/2021) [facility] History of Past illness Narrative* Problem Noted Date Resolved Date Pain of upper abdomen 03/10/2016 02/27/2017 Personal history of colonic polyps 03/10/2016 02/27/2017 Gallstones 03/06/2016 08/24/2016 Collagenous colitis 03/30/2010 03/03/2011 Chronic diarrhea 03/15/2010 03/03/2011 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 Currently chest pain free and feeling better . Elevation of cardiac enzymes 04/25/200908/2009 Overview: Constitent with significant NSTEMI or late presenting STEMI. Currently CP free without STelevation on EKG so no indication for emergent catheterization. Currently presents with moderately decompensated HF of unknown duration. Exam c/w warm and wet physiology. - admit CICU - follow cardiac enzymes - TTE - heparin, ASA, plavix 300, atorvastatin - plan [facility] tomorrow. Hypokalemia 04/09/2009 05/14/2009 Overview: -Replete. Other specified pre-operative examination 200905/14/2009 DVT of lower extremity (deep venous thrombosis) 03/28/2009 09/05/2011 Overview: PE protocol negative for PE - heparin gtt Right renal mass 03/28/2009 08/26/2009 Overview: -continue current management as per urology c/s. 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 04/26/2005 07/18/2008 Contact dermatitis and other eczema, due to unspecified cause 07/18/2008 documented as of this encounter (statuses as of 12/09/2021) [facility] of Past illness Narrative* Problem Noted Date Resolved Date Pain of upper abdomen 03/10/2016 02/27/2017 Personal history of colonic polyps 03/10/2016 02/27/2017 Gallstones 03/06/2016 08/24/2016 Collagenous colitis 03/30/2010 03/03/2011 Chronic diarrhea 03/15/2010 03/03/2011 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 Currently chest pain free and feeling better . Elevation of cardiac enzymes 04/25/200908/2009 Overview: Constitent with significant NSTEMI or late presenting STEMI. Currently CP free without STelevation on EKG so no indication for emergent catheterization. Currently presents with moderately decompensated HF of unknown duration. Exam c/w warm and wet physiology. - admit CICU - follow cardiac enzymes - TTE - heparin, ASA, plavix 300, atorvastatin - plan [facility] tomorrow. Hypokalemia 04/09/2009 05/14/2009 Overview: -Replete. Other specified pre-operative examination 200905/14/2009 DVT of lower extremity (deep venous thrombosis) 03/28/2009 09/05/2011 Overview: PE protocol negative for PE - heparin gtt Right renal mass 03/28/2009 08/26/2009 Overview: -continue current management as per urology c/s. 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 04/26/2005 07/18/2008 Contact dermatitis and other eczema, due to unspecified cause 07/18/2008 documented as of this encounter (statuses as of 12/10/2021) [facility] of Past illness Narrative* Problem Noted Date Resolved Date Pain of upper abdomen 03/10/2016 02/27/2017 Personal history of colonic polyps 03/10/2016 02/27/2017 Gallstones 03/06/2016 08/24/2016 Collagenous colitis 03/30/2010 03/03/2011 Chronic diarrhea 03/15/2010 03/03/2011 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 Currently chest pain free and feeling better . Elevation of cardiac enzymes 04/25/200908/2009 Overview: Constitent with significant NSTEMI or late presenting STEMI. Currently CP free without STelevation on EKG so no indication for emergent catheterization. Currently presents with moderately decompensated HF of unknown duration. Exam c/w warm and wet physiology. - admit CICU - follow cardiac enzymes - TTE - heparin, ASA, plavix 300, atorvastatin - plan [facility] tomorrow. Hypokalemia 04/09/2009 05/14/2009 Overview: -Replete. Other specified pre-operative examination 200905/14/2009 DVT of lower extremity (deep venous thrombosis) 03/28/2009 09/05/2011 Overview: PE protocol negative for PE - heparin gtt Right renal mass 03/28/2009 08/26/2009 Overview: -continue current management as per urology c/s. 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 04/26/2005 07/18/2008 Contact dermatitis and other eczema, due to unspecified cause 07/18/2008 documented as of this encounter (statuses as of 12/20/2021) [facility]01-19-2017 History of Past illness Narrative* Problem Noted Date Resolved Date Pain of upper abdomen 03/10/2016 02/27/2017 Personal history of colonic polyps 03/10/2016 02/27/2017 Gallstones 03/06/2016 08/24/2016 Collagenous colitis 03/30/2010 03/03/2011 Chronic diarrhea 03/15/2010 03/03/2011 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 Currently chest pain free and feeling better . Elevation of cardiac enzymes 04/25/200908/2009 Overview: Constitent with significant NSTEMI or late presenting STEMI. Currently CP free without STelevation on EKG so no indication for emergent catheterization. Currently presents with moderately decompensated HF of unknown duration. Exam c/w warm and wet physiology. - admit CICU - follow cardiac enzymes - TTE - heparin, ASA, plavix 300, atorvastatin - plan [facility] tomorrow. Hypokalemia 04/09/2009 05/14/2009 Overview: -Replete. Other specified pre-operative examination 200905/14/2009 DVT of lower extremity (deep venous thrombosis) 03/28/2009 09/05/2011 Overview: PE protocol negative for PE - heparin gtt Right renal mass 03/28/2009 08/26/2009 Overview: -continue current management as per urology c/s. 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 04/26/2005 07/18/2008 Contact dermatitis and other eczema, due to unspecified cause 07/18/2008 documented as of this encounter (statuses as of 02/25/2022) [facility]01-19-2017 History of Past illness Narrative* Problem Noted Date Resolved Date Pain of upper abdomen 03/10/2016 02/27/2017 Personal history of colonic polyps 03/10/2016 02/27/2017 Gallstones 03/06/2016 08/24/2016 Collagenous colitis 03/30/2010 03/03/2011 Chronic diarrhea 03/15/2010 03/03/2011 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 Currently chest pain free and feeling better . Elevation of cardiac enzymes 04/25/200908/2009 Overview: Constitent with significant NSTEMI or late presenting STEMI. Currently CP free without STelevation on EKG so no indication for emergent catheterization. Currently presents with moderately decompensated HF of unknown duration. Exam c/w warm and wet physiology. - admit CICU - follow cardiac enzymes - TTE - heparin, ASA, plavix 300, atorvastatin - plan [facility] tomorrow. Hypokalemia 04/09/2009 05/14/2009 Overview: -Replete. Other specified pre-operative examination 200905/14/2009 DVT of lower extremity (deep venous thrombosis) 03/28/2009 09/05/2011 Overview: PE protocol negative for PE - heparin gtt Right renal mass 03/28/2009 08/26/2009 Overview: -continue current management as per urology c/s. 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 04/26/2005 07/18/2008 Contact dermatitis and other eczema, due to unspecified cause 07/18/2008 documented as of this encounter (statuses as of 03/15/2022) [facility]01-19-2017 History of Past illness Narrative* Problem Noted Date Resolved Date Pain of upper abdomen 03/10/2016 02/27/2017 Personal history of colonic polyps 03/10/2016 02/27/2017 Gallstones 03/06/2016 08/24/2016 Collagenous colitis 03/30/2010 03/03/2011 Chronic diarrhea 03/15/2010 03/03/2011 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 Currently chest pain free and feeling better . Elevation of cardiac enzymes 04/25/200908/2009 Overview: Constitent with significant NSTEMI or late presenting STEMI. Currently CP free without STelevation on EKG so no indication for emergent catheterization. Currently presents with moderately decompensated HF of unknown duration. Exam c/w warm and wet physiology. - admit CICU - follow cardiac enzymes - TTE - heparin, ASA, plavix 300, atorvastatin - plan [facility] tomorrow. Hypokalemia 04/09/2009 05/14/2009 Overview: -Replete. Other specified pre-operative examination 200905/14/2009 DVT of lower extremity (deep venous thrombosis) 03/28/2009 09/05/2011 Overview: PE protocol negative for PE - heparin gtt Right renal mass 03/28/2009 08/26/2009 Overview: -continue current management as per urology c/s. 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 04/26/2005 07/18/2008 Contact dermatitis and other eczema, due to unspecified cause 07/18/2008 documented as of this encounter (statuses as of 03/16/2022) [facility]01-19-2017 History of Past illness Narrative* Problem Noted Date Resolved Date Pain of upper abdomen 03/10/2016 02/27/2017 Personal history of colonic polyps 03/10/2016 02/27/2017 Gallstones 03/06/2016 08/24/2016 Collagenous colitis 03/30/2010 03/03/2011 Chronic diarrhea 03/15/2010 03/03/2011 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 Currently chest pain free and feeling better . Elevation of cardiac enzymes 04/25/200908/2009 Overview: Constitent with significant NSTEMI or late presenting STEMI. Currently CP free without STelevation on EKG so no indication for emergent catheterization. Currently presents with moderately decompensated HF of unknown duration. Exam c/w warm and wet physiology. - admit CICU - follow cardiac enzymes - TTE - heparin, ASA, plavix 300, atorvastatin - plan [facility] tomorrow. Hypokalemia 04/09/2009 05/14/2009 Overview: -Replete. Other specified pre-operative examination 200905/14/2009 DVT of lower extremity (deep venous thrombosis) 03/28/2009 09/05/2011 Overview: PE protocol negative for PE - heparin gtt Right renal mass 03/28/2009 08/26/2009 Overview: -continue current management as per urology c/s. 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 04/26/2005 07/18/2008 Contact dermatitis and other eczema, due to unspecified cause 07/18/2008 documented as of this encounter (statuses as of 06/06/2022) [facility]01-19-2017 History of Past illness Narrative* Problem Noted Date Resolved Date Pain of upper abdomen 03/10/2016 02/27/2017 Personal history of colonic polyps 03/10/2016 02/27/2017 Gallstones 03/06/2016 08/24/2016 Collagenous colitis 03/30/2010 03/03/2011 Chronic diarrhea 03/15/2010 03/03/2011 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 Currently chest pain free and feeling better . Elevation of cardiac enzymes 04/25/200908/2009 Overview: Constitent with significant NSTEMI or late presenting STEMI. Currently CP free without STelevation on EKG so no indication for emergent catheterization. Currently presents with moderately decompensated HF of unknown duration. Exam c/w warm and wet physiology. - admit CICU - follow cardiac enzymes - TTE - heparin, ASA, plavix 300, atorvastatin - plan [facility] tomorrow. Hypokalemia 04/09/2009 05/14/2009 Overview: -Replete. Other specified pre-operative examination 200905/14/2009 DVT of lower extremity (deep venous thrombosis) 03/28/2009 09/05/2011 Overview: PE protocol negative for PE - heparin gtt Right renal mass 03/28/2009 08/26/2009 Overview: -continue current management as per urology c/s. 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 04/26/2005 07/18/2008 Contact dermatitis and other eczema, due to unspecified cause 07/18/2008 documented as of this encounter (statuses as of 07/20/2022) [facility]01-19-2017 History of Past illness Narrative* Problem Noted Date Resolved Date Pain of upper abdomen 03/10/2016 02/27/2017 Personal history of colonic polyps 03/10/2016 02/27/2017 Gallstones 03/06/2016 08/24/2016 Collagenous colitis 03/30/2010 03/03/2011 Chronic diarrhea 03/15/2010 03/03/2011 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 Currently chest pain free and feeling better . Elevation of cardiac enzymes 04/25/200908/2009 Overview: Constitent with significant NSTEMI or late presenting STEMI. Currently CP free without STelevation on EKG so no indication for emergent catheterization. Currently presents with moderately decompensated HF of unknown duration. Exam c/w warm and wet physiology. - admit CICU - follow cardiac enzymes - TTE - heparin, ASA, plavix 300, atorvastatin - plan [facility] tomorrow. Hypokalemia 04/09/2009 05/14/2009 Overview: -Replete. Other specified pre-operative examination 200905/14/2009 DVT of lower extremity (deep venous thrombosis) 03/28/2009 09/05/2011 Overview: PE protocol negative for PE - heparin gtt Right renal mass 03/28/2009 08/26/2009 Overview: -continue current management as per urology c/s. 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 04/26/2005 07/18/2008 Contact dermatitis and other eczema, due to unspecified cause 07/18/2008 documented as of this encounter (statuses as of 07/23/2022) [facility]01-19-2017 History of Past illness Narrative* Problem Noted Date Resolved Date Pain of upper abdomen 03/10/2016 02/27/2017 Personal history of colonic polyps 03/10/2016 02/27/2017 Gallstones 03/06/2016 08/24/2016 Collagenous colitis 03/30/2010 03/03/2011 Chronic diarrhea 03/15/2010 03/03/2011 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 Currently chest pain free and feeling better . Elevation of cardiac enzymes 04/25/200908/2009 Overview: Constitent with significant NSTEMI or late presenting STEMI. Currently CP free without STelevation on EKG so no indication for emergent catheterization. Currently presents with moderately decompensated HF of unknown duration. Exam c/w warm and wet physiology. - admit CICU - follow cardiac enzymes - TTE - heparin, ASA, plavix 300, atorvastatin - plan [facility] tomorrow. Hypokalemia 04/09/2009 05/14/2009 Overview: -Replete. Other specified pre-operative examination 200905/14/2009 DVT of lower extremity (deep venous thrombosis) 03/28/2009 09/05/2011 Overview: PE protocol negative for PE - heparin gtt Right renal mass 03/28/2009 08/26/2009 Overview: -continue current management as per urology c/s. 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 04/26/2005 07/18/2008 Contact dermatitis and other eczema, due to unspecified cause 07/18/2008 documented as of this encounter (statuses as of 07/27/2022) [facility]01-19-2017 History of Past illness Narrative* Problem Noted Date Diagnosed Date Resolved Date Pain of upper abdomen 03/10/20162017 Personal history of colonic polyps 03/10/2016 02/27/2017 Gallstones 03/06/2016 08/24/2016 Collagenous colitis 03/30/2010 03/03/19 12 Chronic diarrhea 03/15/2010 03/03/2011 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 Currently chest pain free and feeling better . Elevation of cardiac enzymes 04/25/2009 08/26/2009 Overview: Constitent with significant NSTEMI or late presenting STEMI. Currently CP free without STelevation on EKG so no indication for emergent catheterization. Currently presents with moderately decompensated HF of unknown duration. Exam c/w warm and wet physiology. - admit CICU - follow cardiac enzymes - TTE - heparin, ASA, plavix 300, atorvastatin - plan [facility] tomorrow. Hypokalemia 04/09/2009 05/14/2009 Overview: -Replete. Other specified pre-operative examination 04/09/2009 05/14/2009 DVT of lower extremity (deep venous thrombosis) 03/28/2009 09/05/2011 Overview: PE protocol negative for PE - heparin gtt Right renal mass 03/28/2009 08/26/2009 Overview: -continue current management as per urology c/s. Nontoxic multinodular goiter 12/11/2007 09/23/2017 Cystocele, midline 07/23/2007 8 Unspecified asthma(493.90) 09/21/2005 0 07/18/2008 Unspecified disorder resulti ng from impaired renal function 04/26/2005 07/18/2008 Contact dermatitis and other eczema, due to unspecified cause 07/18/2008 documented as of this encounter (statuses as of 09/20/2022) [facility]01-19-2017 History of Past illness Narrative* Problem Noted Date Diagnosed Date Resolved Date Pain of upper abdomen 03/10/20162017 Personal history of colonic polyps 03/10/2016 02/27/2017 Gallstones 03/06/2016 08/24/2016 Collagenous colitis 03/30/2010 03/03/19 12 Chronic diarrhea 03/15/2010 03/03/2011 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 Currently chest pain free and feeling better . Elevation of cardiac enzymes 04/25/2009 08/26/2009 Overview: Constitent with significant NSTEMI or late presenting STEMI. Currently CP free without STelevation on EKG so no indication for emergent catheterization. Currently presents with moderately decompensated HF of unknown duration. Exam c/w warm and wet physiology. - admit CICU - follow cardiac enzymes - TTE - heparin, ASA, plavix 300, atorvastatin - plan [facility] tomorrow. Hypokalemia 04/09/2009 05/14/2009 Overview: -Replete. Other specified pre-operative examination 04/09/2009 05/14/2009 DVT of lower extremity (deep venous thrombosis) 03/28/2009 09/05/2011 Overview: PE protocol negative for PE - heparin gtt Right renal mass 03/28/2009 08/26/2009 Overview: -continue current management as per urology c/s. Nontoxic multinodular goiter 12/11/2007 09/23/2017 Cystocele, midline 07/23/2007 8 Unspecified asthma(493.90) 09/21/2005 0 07/18/2008 Unspecified disorder resulti ng from impaired renal function 04/26/2005 07/18/2008 Contact dermatitis and other eczema, due to unspecified cause 07/18/2008 documented as of this encounter (statuses as of 10/27/2022) [facility]01[facility]2017 History of Past illness Narrative* Problem Noted Date Diagnosed Date Resolved Date Pain of upper abdomen 03/10/20162017 Personal history of colonic polyps 03/10/2016 02/27/2017 Gallstones 03/06/2016 08/24/2016 Collagenous colitis 03/30/2010 03/03/19 12 Chronic diarrhea 03/15/2010 03/03/2011 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 Currently chest pain free and feeling better . Elevation of cardiac enzymes 04/25/2009 08/26/2009 Overview: Constitent with significant NSTEMI or late presenting STEMI. Currently CP free without STelevation on EKG so no indication for emergent catheterization. Currently presents with moderately decompensated HF of unknown duration. Exam c/w warm and wet physiology. - admit CICU - follow cardiac enzymes - TTE - heparin, ASA, plavix 300, atorvastatin - plan [facility] tomorrow. Hypokalemia 04/09/2009 05/14/2009 Overview: -Replete. Other specified pre-operative examination 04/09/2009 05/14/2009 DVT of lower extremity (deep venous thrombosis) 03/28/2009 09/05/2011 Overview: PE protocol negative for PE - heparin gtt Right renal mass 03/28/2009 08/26/2009 Overview: -continue current management as per urology c/s. Nontoxic multinodular goiter 12/11/2007 09/23/2017 Cystocele, midline 07/23/2007 8 Unspecified asthma(493.90) 09/21/2005 0 07/18/2008 Unspecified disorder resulti ng from impaired renal function 04/26/2005 07/18/2008 Contact dermatitis and other eczema, due to unspecified cause 07/18/2008 documented as of this encounter (statuses as of 11/01/2022) [facility] History of Past illness Narrative* Problem Noted Date Diagnosed Date Resolved Date Pain of upper abdomen 03/10/20162017 Personal history of colonic polyps 03/10/2016 02/27/2017 Gallstones 03/06/2016 08/24/2016 Collagenous colitis 03/30/2010 03/03/19 12 Chronic diarrhea 03/15/2010 03/03/2011 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 Currently chest pain free and feeling better . Elevation of cardiac enzymes 04/25/2009 08/26/2009 Overview: Constitent with significant NSTEMI or late presenting STEMI. Currently CP free without STelevation on EKG so no indication for emergent catheterization. Currently presents with moderately decompensated HF of unknown duration. Exam c/w warm and wet physiology. - admit CICU - follow cardiac enzymes - TTE - heparin, ASA, plavix 300, atorvastatin - plan [facility] tomorrow. Hypokalemia 04/09/2009 05/14/2009 Overview: -Replete. Other specified pre-operative examination 04/09/2009 05/14/2009 DVT of lower extremity (deep venous thrombosis) 03/28/2009 09/05/2011 Overview: PE protocol negative for PE - heparin gtt Right renal mass 03/28/2009 08/26/2009 Overview: -continue current management as per urology c/s. Nontoxic multinodular goiter 12/11/2007 09/23/2017 Cystocele, midline 07/23/2007 8 Unspecified asthma(493.90) 09/21/2005 0 07/18/2008 Unspecified disorder resulti ng from impaired renal function 04/26/2005 07/18/2008 Contact dermatitis and other eczema, due to unspecified cause 07/18/2008 documented as of this encounter (statuses as of 11/08/2022) [facility] History of Past illness Narrative* Problem Noted Date Diagnosed Date Resolved Date Pain of upper abdomen 03/10/20162017 Personal history of colonic polyps 03/10/2016 02/27/2017 Gallstones 03/06/2016 08/24/2016 Collagenous colitis 03/30/2010 03/03/19 12 Chronic diarrhea 03/15/2010 03/03/2011 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 Currently chest pain free and feeling better . Elevation of cardiac enzymes 04/25/2009 08/26/2009 Overview: Constitent with significant NSTEMI or late presenting STEMI. Currently CP free without STelevation on EKG so no indication for emergent catheterization. Currently presents with moderately decompensated HF of unknown duration. Exam c/w warm and wet physiology. - admit CICU - follow cardiac enzymes - TTE - heparin, ASA, plavix 300, atorvastatin - plan [facility] tomorrow. Hypokalemia 04/09/2009 05/14/2009 Overview: -Replete. Other specified pre-operative examination 04/09/2009 05/14/2009 DVT of lower extremity (deep venous thrombosis) 03/28/2009 09/05/2011 Overview: PE protocol negative for PE - heparin gtt Right renal mass 03/28/2009 08/26/2009 Overview: -continue current management as per urology c/s. Nontoxic multinodular goiter 12/11/2007 09/23/2017 Cystocele, midline 07/23/2007 8 Unspecified asthma(493.90) 09/21/2005 0 07/18/2008 Unspecified disorder resulti ng from impaired renal function 04/26/2005 07/18/2008 Contact dermatitis and other eczema, due to unspecified cause 07/18/2008 documented as of this encounter (statuses as of 12/02/2022) [facility]2017 History of Past illness Narrative* Problem Noted Date Diagnosed Date Resolved Date Pain of upper abdomen 03/10/20162017 Personal history of colonic polyps 03/10/2016 02/27/2017 Gallstones 03/06/2016 08/24/2016 Collagenous colitis 03/30/2010 03/03/19 Chronic diarrhea 03/15/2010 03/03/2011 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 Currently chest pain free and feeling better . Elevation of cardiac enzymes 04/25/2009 08/26/2009 Overview: Constitent with significant NSTEMI or late presenting STEMI. Currently CP free without STelevation on EKG so no indication for emergent catheterization. Currently presents with moderately decompensated HF of unknown duration. Exam c/w warm and wet physiology. - admit CICU - follow cardiac enzymes - TTE - heparin, ASA, plavix 300, atorvastatin - plan [facility] tomorrow. Hypokalemia 04/09/2009 05/14/2009 Overview: -Replete. Other specified pre-operative examination 04/09/2009 05/14/2009 DVT of lower extremity (deep venous thrombosis) 03/28/2009 09/05/2011 Overview: PE protocol negative for PE - heparin gtt Right renal mass 03/28/2009 08/26/2009 Overview: -continue current management as per urology c/s. Nontoxic multinodular goiter 12/11/2007 09/23/2017 Cystocele, midline 07/23/2007 8 Unspecified asthma(493.90) 09/21/2005 0 07/18/2008 Unspecified disorder resulti ng from impaired renal function 04/26/2005 07/18/2008 Contact dermatitis and other eczema, due to unspecified cause 07/18/2008 documented as of this encounter (statuses as of 12/19/2022) [facility] History of Past illness Narrative* Problem Noted Date Diagnosed Date Resolved Date Pain of upper abdomen 03/10/20162017 Personal history of colonic polyps 03/10/2016 02/27/2017 Gallstones 03/06/2016 08/24/2016 Collagenous colitis 03/30/2010 03/03/19 12 Chronic diarrhea 03/15/2010 03/03/2011 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 Currently chest pain free and feeling better . Elevation of cardiac enzymes 04/25/2009 08/26/2009 Overview: Constitent with significant NSTEMI or late presenting STEMI. Currently CP free without STelevation on EKG so no indication for emergent catheterization. Currently presents with moderately decompensated HF of unknown duration. Exam c/w warm and wet physiology. - admit CICU - follow cardiac enzymes - TTE - heparin, ASA, plavix 300, atorvastatin - plan [facility] tomorrow. Hypokalemia 04/09/2009 05/14/2009 Overview: -Replete. Other specified pre-operative examination 04/09/2009 05/14/2009 DVT of lower extremity (deep venous thrombosis) 03/28/2009 09/05/2011 Overview: PE protocol negative for PE - heparin gtt Right renal mass 03/28/2009 08/26/2009 Overview: -continue current management as per urology c/s. Nontoxic multinodular goiter 12/11/2007 09/23/2017 Cystocele, midline 07/23/2007 8 Unspecified asthma(493.90) 09/21/2005 0 07/18/2008 Unspecified disorder resulti ng from impaired renal function 04/26/2005 07/18/2008 Contact dermatitis and other eczema, due to unspecified cause 07/18/2008 documented as of this encounter (statuses as of 12/25/2022) [facility] History of Past illness Narrative* Problem Noted Date Diagnosed Date Resolved Date Pain of upper abdomen 03/10/20162017 Personal history of colonic polyps 03/10/2016 02/27/2017 Gallstones 03/06/2016 08/24/2016 Collagenous colitis 03/30/2010 03/03/19 12 Chronic diarrhea 03/15/2010 03/03/2011 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 Currently chest pain free and feeling better . Elevation of cardiac enzymes 04/25/2009 08/26/2009 Overview: Constitent with significant NSTEMI or late presenting STEMI. Currently CP free without STelevation on EKG so no indication for emergent catheterization. Currently presents with moderately decompensated HF of unknown duration. Exam c/w warm and wet physiology. - admit CICU - follow cardiac enzymes - TTE - heparin, ASA, plavix 300, atorvastatin - plan [facility] tomorrow. Hypokalemia 04/09/2009 05/14/2009 Overview: -Replete. Other specified pre-operative examination 04/09/2009 05/14/2009 DVT of lower extremity (deep venous thrombosis) 03/28/2009 09/05/2011 Overview: PE protocol negative for PE - heparin gtt Right renal mass 03/28/2009 08/26/2009 Overview: -continue current management as per urology c/s. Nontoxic multinodular goiter 12/11/2007 09/23/2017 Cystocele, midline 07/23/2007 8 Unspecified asthma(493.90) 09/21/2005 0 07/18/2008 Unspecified disorder resulti ng from impaired renal function 04/26/2005 07/18/2008 Contact dermatitis and other eczema, due to unspecified cause 07/18/2008 documented as of this encounter (statuses as of 01/19/2023) [facility] History of Past illness Narrative* Problem Noted Date Diagnosed Date Resolved Date Pain of upper abdomen 03/10/20162017 Personal history of colonic polyps 03/10/2016 02/27/2017 Gallstones 03/06/2016 08/24/2016 Collagenous colitis 03/30/2010 03/03/19 12 Chronic diarrhea 03/15/2010 03/03/2011 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 Currently chest pain free and feeling better . Elevation of cardiac enzymes 04/25/2009 08/26/2009 Overview: Constitent with significant NSTEMI or late presenting STEMI. Currently CP free without STelevation on EKG so no indication for emergent catheterization. Currently presents with moderately decompensated HF of unknown duration. Exam c/w warm and wet physiology. - admit CICU - follow cardiac enzymes - TTE - heparin, ASA, plavix 300, atorvastatin - plan [facility] tomorrow. Hypokalemia 04/09/2009 05/14/2009 Overview: -Replete. Other specified pre-operative examination 04/09/2009 05/14/2009 DVT of lower extremity (deep venous thrombosis) 03/28/2009 09/05/2011 Overview: PE protocol negative for PE - heparin gtt Right renal mass 03/28/2009 08/26/2009 Overview: -continue current management as per urology c/s. Nontoxic multinodular goiter 12/11/2007 09/23/2017 Cystocele, midline 07/23/2007 8 Unspecified asthma(493.90) 09/21/2005 0 07/18/2008 Unspecified disorder resulti ng from impaired renal function 04/26/2005 07/18/2008 Contact dermatitis and other eczema, due to unspecified cause 07/18/2008 documented as of this encounter (statuses as of 01/19/2023) [facility] History of Past illness Narrative* Problem Noted Date Diagnosed Date Resolved Date Pain of upper abdomen 03/10/20162017 Personal history of colonic polyps 03/10/2016 02/27/2017 Gallstones 03/06/2016 08/24/2016 Collagenous colitis 03/30/2010 03/03/19 12 Chronic diarrhea 03/15/2010 03/03/2011 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 Currently chest pain free and feeling better . Elevation of cardiac enzymes 04/25/2009 08/26/2009 Overview: Constitent with significant NSTEMI or late presenting STEMI. Currently CP free without STelevation on EKG so no indication for emergent catheterization. Currently presents with moderately decompensated HF of unknown duration. Exam c/w warm and wet physiology. - admit CICU - follow cardiac enzymes - TTE - heparin, ASA, plavix 300, atorvastatin - plan [facility] tomorrow. Hypokalemia 04/09/2009 05/14/2009 Overview: -Replete. Other specified pre-operative examination 04/09/2009 05/14/2009 DVT of lower extremity (deep venous thrombosis) 03/28/2009 09/05/2011 Overview: PE protocol negative for PE - heparin gtt Right renal mass 03/28/2009 08/26/2009 Overview: -continue current management as per urology c/s. Nontoxic multinodular goiter 12/11/2007 09/23/2017 Cystocele, midline 07/23/2007 8 Unspecified asthma(493.90) 09/21/2005 0 07/18/2008 Unspecified disorder resulti ng from impaired renal function 04/26/2005 07/18/2008 Contact dermatitis and other eczema, due to unspecified cause 07/18/2008 documented as of this encounter (statuses as of 03/24/2023) [facility] History of Past illness Narrative* Problem Noted Date Diagnosed Date Resolved Date Pain of upper abdomen 03/10/20162017 Personal history of colonic polyps 03/10/2016 02/27/2017 Gallstones 03/06/2016 08/24/2016 Collagenous colitis 03/30/2010 03/03/19 12 Chronic diarrhea 03/15/2010 03/03/2011 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 Currently chest pain free and feeling better . Elevation of cardiac enzymes 04/25/2009 08/26/2009 Overview: Constitent with significant NSTEMI or late presenting STEMI. Currently CP free without STelevation on EKG so no indication for emergent catheterization. Currently presents with moderately decompensated HF of unknown duration. Exam c/w warm and wet physiology. - admit CICU - follow cardiac enzymes - TTE - heparin, ASA, plavix 300, atorvastatin - plan [facility] tomorrow. Hypokalemia 04/09/2009 05/14/2009 Overview: -Replete. Other specified pre-operative examination 04/09/2009 05/14/2009 DVT of lower extremity (deep venous thrombosis) 03/28/2009 09/05/2011 Overview: PE protocol negative for PE - heparin gtt Right renal mass 03/28/2009 08/26/2009 Overview: -continue current management as per urology c/s. Nontoxic multinodular goiter 12/11/2007 09/23/2017 Cystocele, midline 07/23/2007 8 Unspecified asthma(493.90) 09/21/2005 0 07/18/2008 Unspecified disorder resulti ng from impaired renal function 04/26/2005 07/18/2008 Contact dermatitis and other eczema, due to unspecified cause 07/18/2008 documented as of this encounter (statuses as of 03/28/2023) [facility] History of Past illness Narrative* Problem Noted Date Diagnosed Date Resolved Date Pain of upper abdomen 03/10/20162017 Personal history of colonic polyps 03/10/2016 02/27/2017 Gallstones 03/06/2016 08/24/2016 Collagenous colitis 03/30/2010 03/03/19 12 Chronic diarrhea 03/15/2010 03/03/2011 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 Currently chest pain free and feeling better . Elevation of cardiac enzymes 04/25/2009 08/26/2009 Overview: Constitent with significant NSTEMI or late presenting STEMI. Currently CP free without STelevation on EKG so no indication for emergent catheterization. Currently presents with moderately decompensated HF of unknown duration. Exam c/w warm and wet physiology. - admit CICU - follow cardiac enzymes - TTE - heparin, ASA, plavix 300, atorvastatin - plan [facility] tomorrow. Hypokalemia 04/09/2009 05/14/2009 Overview: -Replete. Other specified pre-operative examination 04/09/2009 05/14/2009 DVT of lower extremity (deep venous thrombosis) 03/28/2009 09/05/2011 Overview: PE protocol negative for PE - heparin gtt Right renal mass 03/28/2009 08/26/2009 Overview: -continue current management as per urology c/s. Nontoxic multinodular goiter 12/11/2007 09/23/2017 Cystocele, midline 07/23/2007 8 Unspecified asthma(493.90) 09/21/2005 0 07/18/2008 Unspecified disorder resulti ng from impaired renal function 04/26/2005 07/18/2008 Contact dermatitis and other eczema, due to unspecified cause 07/18/2008 documented as of this encounter (statuses as of 04/03/2023) [facility] Diagnosis Adrenal hypofunction (HCC)- Primary Glucocorticoid deficiency Primary hypertension Unspecified essential hypertension ASHD (arteriosclerotic heart disease) Coronary atherosclerosis of unspecified type of vessel, sitka or graft Hip pain Pain in joint, pelvic region and thigh Need for COVID-19 vaccine [facility] Diagnosis Atopic neurodermatitis- Primary Other atopic dermatitis and related conditions [facility] Diagnosis Suspected COVID-19 virus infection- Primary [facility] Diagnosis Stage 3b chronic kidney disease (HCC)- Primary [facility] Diagnosis Atopic neurodermatitis- Primary Other atopic dermatitis and related conditions [facility] Diagnosis Pure hypercholesterolemia [facility] Diagnosis Hypotension due to hypovolemia- Primary Elevated troponin Other abnormal blood chemistry Acute kidney injury (HCC) Acute kidney failure, unspecified Stage 3b chronic kidney disease (HCC) Hypercalcemia Anticoagulated on Coumadin Encounter for therapeutic drug monitoring Breast pain, left Mastodynia Encounter for screening mammogram for malignant neoplasm of breast Other screening mammogram [facility] Diagnosis Encounter for screening mammogram for malignant neoplasm of breast Other screening mammogram [facility] Diagnosis Medicare annual wellness visit, subsequent- Primary Routine general medical examination at a health care facility Hypertension, unspecified type Pure hypercholesterolemia Encounter for immunization Need for other specified prophylactic vaccination against single bacterial disease [facility]* Diagnosis Atopic neurodermatitis- Primary Other atopic dermatitis and related conditions [facility] Diagnosis Atopic neurodermatitis Other atopic dermatitis and related conditions [facility] Diagnosis Primary hypertension- Primary Unspecified essential hypertension Pure hypercholesterolemia Stage 3b chronic kidney disease (HCC) ASHD (arteriosclerotic heart disease) Coronary atherosclerosis of unspecified type of vessel, sitka or graft Osteopenia, unspecified location [facility] Diagnosis Hip pain, unspecified laterality- Primary Stage 3b chronic kidney disease (HCC) Deep vein thrombosis (DVT) of lower extremity, unspecified chronicity, unspecified laterality, unspecified vein (HCC) Need for influenza vaccination Need for prophylactic vaccination and inoculation against influenza [facility] Diagnosis Hip pain, unspecified laterality [M25.559]- Primary [facility] Diagnosis Foot pain, right- Primary Pain in limb Closed fracture of right foot, initial encounter [facility]* Diagnosis Pure hypercholesterolemia documented in this encounter [facility] note* Diagnosis Closed displaced fracture of fifth metatarsal bone of right foot, initial encounter- Primary documented in this encounter [facility] note* Diagnosis Closed displaced fracture of fifth metatarsal bone of right foot, initial encounter [facility] Diagnosis Closed displaced fracture of fifth metatarsal bone of right foot, initial encounter [facility] Diagnosis Closed displaced fracture of fifth metatarsal bone of right foot, initial encounter documented in this encounter [facility] note* Diagnosis Medicare annual wellness visit, subsequent- Primary Routine general medical examination at a health care facility Primary hypertension Unspecified essential hypertension Pure hypercholesterolemia Atopic neurodermatitis Other atopic dermatitis and related conditions Adrenal hypofunction (HCC) Glucocorticoid deficiency Disorder of autonomic nervous system Unspecified disorder of autonomic nervous system Stage 3b chronic kidney disease (HCC) Age-related osteoporosis with current pathological fracture with routine healing Aftercare for healing pathologic fracture of other bone Need for COVID-19 vaccine Hypercalcemia documented in this encounter [facility] note* Diagnosis Gait abnormality- Primary Abnormality of gait Hip pain, unspecified laterality Closed displaced fracture of fifth metatarsal bone of right foot with delayed healing, subsequent encounter [facility] Diagnosis Gait abnormality- Primary Abnormality of gait Hip pain, unspecified laterality Closed displaced fracture of fifth metatarsal bone of right foot with delayed healing, subsequent encounter documented in this encounter [facility] for referral (narrative)* Diagnostic Procedure Only (Routine) - Authorized Specialty Diagnoses / Procedures Referred By Fransico cortez Referred To Contact [facility] Diagnoses Encounter for screening mammogram for malignant neoplasm of breast Procedures TAE SCREENING SCREENING MAMMOGRAPHY BI 2-VIEW BREAST INC CAD Amos Floyd MD [address] [place] [address] [facility] [address] [place] [address] Referral ID Status Reason Start Date Expiration Date Visits Requested Visits Authorized [id number] Authorized Auto-Generat ed Referral 01/05/2023 1 1 T [facility] for referral (narrative)* Diagnostic Procedure Only (Routine) - Closed Specialty Diagnoses / Procedures Referred By Contac t Referred To Contact [facility] Diagnoses Encounter for screening mammogram for malignant neoplasm of breast Procedures TAE SCREENING SCREENING MAMMOGRAPHY BI 2-VIEW BREAST INC CAD Amos Floyd MD [address] [place] [address] [facility] [address] [place] [address] Referral ID Status Reason Start Date Expiration Date V isits Requested Visits Authorized [id number] Closed Auto-Generate d Referral 12/06/2021 01/05/2023 1 1 T [facility] for referral (narrative)* Diagnostic Procedure Only (Routine) - Pending Review Specialty Diagnoses / Procedures Referred By Contac t Referred To Contact [facility] IMAG[facility] Diagnoses Closed displaced fracture of fifth metatarsal bone of right foot, initial encounter Procedures XR FOOT GENERAL 3V AP/LAT/OBL RIGHT RADEX FOOT COMPLETE MINIMUM 3 VIEWS Geraldo [address] [place] [address] [place] [address] Referral ID Status Reason Start Date Expiration Date Visits Requested Visits Authorized [id number] Pending Review Auto-Generat ed Referral 3 01/18/2024 1 1 [facility] for referral (narrative)* Diagnostic Procedure Only (Routine) - Closed Specialty Diagnoses / Procedures Referred By Contac t Referred To Contact [facility] IMAG[facility] Diagnoses Closed displaced fracture of fifth metatarsal bone of right foot, initial encounter Procedures XR FOOT GENERAL 3V AP/LAT/OBL RIGHT RADEX FOOT COMPLETE MINIMUM 3 VIEWS Geraldo Lindsey [address] [place] [address] [place] [address] Referral ID Status Reason Start Date Expiration Date V isits Requested Visits Authorized [id number] Closed Auto-Generate d Referral 12/17/2022 12/17/2023 1 1 [facility] for referral (narrative)* Diagnostic Procedure Only (Routine) - Closed Specialty Diagnoses / Procedures Referred By Contac t Referred To Contact [facility] IMAG[facility] Diagnoses Closed displaced fracture of fifth metatarsal bone of right foot, initial encounter Procedures XR FOOT GENERAL 3V AP/LAT/OBL RIGHT RADEX FOOT COMPLETE MINIMUM 3 VIEWS Geraldo Lindsey [address] [place] [address] [place] [address] Referral ID Status Reason Start Date Expiration Date V isits Requested Visits Authorized [id number] Closed Auto-Generate d Referral 11/17/2022 12/17/2023 1 1 [facility] for visit Narrative* Diagnostic Procedure Only (Routine) - Closed Specialty Diagnoses / Procedures Referred By Contac t Referred To Contact [facility] Diagnoses Encounter for screening mammogram for malignant neoplasm of breast Procedures TAE SCREENING SCREENING MAMMOGRAPHY BI 2-VIEW BREAST INC CAD Amos Floyd MD [address] [place] [address] [facility] [address] [place] [address] Referral ID Status Reason Start Date Expiration Date V isits Requested Visits Authorized [id number] Closed Auto-Generate d Referral 12/06/2021 01/05/2023 1 1 [facility] for visit Narrative* Diagnostic Procedure Only (Routine) - Closed Specialty Diagnoses / Procedures Referred By Contac t Referred To Contact XR IMAGING Diagnoses Closed displaced fracture of fifth metatarsal bone of right foot, initial encounter Procedures XR FOOT GENERAL 3V AP/LAT/OBL RIGHT RADEX FOOT COMPLETE MINIMUM 3 VIEWS Geraldo Lindsey [address] [place] [address] [place] [address] Referral ID Status Reason Start Date Expiration Date V isits Requested Visits Authorized [id number] Closed Auto-Generate d Referral 12/17/2022 12/17/2023 1 1 [facility] for visit Narrative* Diagnostic Procedure Only (Routine) - Closed Specialty Diagnoses / Procedures Referred By Contac t Referred To Contact XR IMAGING Diagnoses Closed displaced fracture of fifth metatarsal bone of right foot, initial encounter Procedures XR FOOT GENERAL 3V AP/LAT/OBL RIGHT RADEX FOOT COMPLETE MINIMUM 3 VIEWS Geraldo Lindsey [address] [place] [address] [place] [address] Referral ID Status Reason Start Date Expiration Date V isits Requested Visits Authorized [id number] Closed Auto-Generate d Referral 11/17/2022 12/17/2023 1 1 [facility] for visit Narrative* Diagnostic Procedure Only (Routine) - Closed Specialty Diagnoses / Procedures Referred By Contac t Referred To Contact XR IMAGING Diagnoses Closed displaced fracture of fifth metatarsal bone of right foot, initial encounter Procedures XR FOOT GENERAL 3V AP/LAT/OBL RIGHT RADEX FOOT COMPLETE MINIMUM 3 VIEWS Geraldo Lindsey [address] [place] [address] [place] [address] Referral ID Status Reason Start Date Expiration Date V isits Requested Visits Authorized [id number] Closed Auto-Generate d Referral 12/19/2022 01/18/2024 1 1 [facility] Summary Purpose Family History No Family History Records FoundNo Family History Records FoundNo Family History Records FoundNo Family History Records FoundNo Family History Records Found Advance Directives No Advanced Directives Records FoundDocuments on File Type Date Recorded 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 Advance Directive(s) Advance Directive(s) 03/25/2016 3:29 PM Advance Directive(s) 03/22/2016 8:29 AM Advance Directive(s) 09/14/2015 10:37 AM Hospital Course Note Send Summary: Discharge Summ christ Providers: Provider RoleProvider Name Amos Monge, Bryan Ballard, Alvin Encarnacion, Di Parker, Leigh Cain, ShabbirJairon Cordero Victor D Note Recipients: Amos Floyd MD - [id number] [] Discharge: Summary: Admission Date: .01-May-2020 20:47:00 Discharge Date: 08-May-2020 Attending Physician at Discharge: Bryan South Admission Reason: HPI: LINDA PERALTA is a 75 year old Female who was transferred to this hospital for endocrine evaluation. PT is a poor historian and there were few usable records transferred from OSH, the history is limited as such Per the patient on 04/22 she was admitted to the hospital for hypercalcemia. according to her she has had multiple interventions but they have been unsuccessful at correcting it. On admission the patient had acute kidney injury which was improving with volume resuscitation. decision made to (more content not included)... Health Concerns Infection Onset Date Last Indicated Resolved Time COVID-19 Rule-Out 10/13/2021 10/13/2021 Infection Onset Date Last Indicated Resolved Time COVID-19 Rule-Out 10/13/2021 10/13/2021 10/14/2021 3:44 AM EDT COVID-19 Confirmed 10/13/2021 10/13/2021 Infection Onset Date Last Indicated Resolved Time COVID-19 Confirmed 10/13/2021 10/13/2021 Reason for Referral Specialty Diagnoses / Procedures Referred By Fransico cortez Referred To Contact [facility] Diagnoses Hip pain, unspecified laterality Procedures CONSULT TO PHYSICAL THERAPY PHYSICAL THERAPY EVALUATION HIGH COMPLEX 45 MINS Amos Floyd MD [address] [place] [address] [facility] [address] [address] Referral ID Status Reason Start Date Expiration Date Visits Requested Visits Authorized [id number] Authorized Auto-Generat ed Referral 10/26/2022 02/19/2023 1 1 Specialty Diagnoses / Procedures Referred By Fransico cortez Referred To Contact XR IMAGING Diagnoses Hip pain, unspecified laterality Procedures XR HIP BILATERAL 5V PEL/AP/LAT EACH HIP RADEX HIPS BILATERAL WITH PELVIS MINIMUM 5 VIEWS Amos Floyd MD [address] [place] [address] [place] [address] Referral ID Status Reason Start Date Expiration Date V isits Requested Visits Authorized [id number] Closed Auto-Generate d Referral 10/26/2022 11/25/2023 1 1 Specialty Diagnoses / Procedures Referred By Contac t Referred To Contact [facility] Diagnoses Pain of left hip Procedures PT REHAB FOLLOW UP ORDER THERAPEUTIC EXERCISES RE, EA 15 MIN. Pt [facility]ly [facility] [address] [place] [address] [facility] [place] [address] [place] [id number] Referral ID Status Reason Start Date Expiration Date Visits Requested Visits Authorized [id number] Pending Review PCP Requested Referral Auto-Generate d Referral 11/01/2022 01/30/2023 1 1 Specialty Diagnoses / Procedures Referred By Contac t Referred To Contact Podiatry Diagnoses Foot pain, right Procedures CONSULT TO PODIATRY OFFICE/OUTPATIENT [facility] 60-74 MINUTES Jacinda Mccrary, MARKET RESEARCH COORDINATOR.OUTSIDE PHYSICAL DAMAGE APPRAISER [address] [place] [address] Referral ID Status Reason Start Date Expiration Date Visits Requested Visits Authorized [id number] Authorized PCP Requested Referral 11/08/2022 11/08/2023 1 1 Specialty Diagnoses / Procedures Referred By Contac t Referred To Contact XR IMAGING Diagnoses Foot pain, right Procedures XR FOOT GENERAL 3V AP/LAT/OBL RIGHT RADEX FOOT COMPLETE MINIMUM 3 VIEWS Jacinda Mccrary, LIDIA.OUTSIDE PHYSICAL DAMAGE APPRAISER [address] [place] [address] [place] [address] Referral ID Status Reason Start Date Expiration Date V isits Requested Visits Authorized [id number] Closed Auto-Generate d Referral 11/08/2022 12/08/2023 1 1 Additional Source Comments INFORMATION SOURCE (unrecogn ized section and content) DATE CREATED AUTHOR AUTHOR'S ORGANIZ ATION 08/15/2017 [facility] DATE CREATED AUTHOR AUTHOR'S ORGANIZ ATION 04/29/2020 [facility] DATE CREATED AUTHOR AUTHOR'S ORGANIZ ATION 05/27/2020 [facility] DATE CREATED AUTHOR AUTHOR'S ORGANGENNY ATION 04/04/2023 [facility] Source Comments (unrecognize d section and content) In the event this informatio n is protected by the Federal Confidentiality of Alcohol and Drug Abuse Patient Records regulations: The Federal rules restrict any use of the information to criminally investigate or prosecute any alcohol or drug abuse patient.[facility] the event this information is protected by the Federal Confidentiality of Alcohol and Drug Abuse Patient Records regulations: The Federal rules restrict any use of the information to criminally investigate or prosecute any alcohol or drug abuse patient.[facility] HospitalIn the event this information is protected by the Federal Confidentiality of Alcohol and Drug Abuse Patient Records regulations: The Federal rules restrict any use of the information to criminally investigate or prosecute any alcohol or drug abuse patient.[facility] HospitalIn the event this information is protected by the Federal Confidentiality of Alcohol and Drug Abuse Patient Records regulations: The Federal rules restrict any use of the information to criminally investigate or prosecute any alcohol or drug abuse patient.[facility] HospitalIn the event this information is protected by the Federal Confidentiality of Alcohol and Drug Abuse Patient Records regulations: The Federal rules restrict any use of the information to criminally investigate or prosecute any alcohol or drug abuse patient.[facility] HospitalIn the event this information is protected by the Federal Confidentiality of Alcohol and Drug Abuse Patient Records regulations: The Federal rules restrict any use of the information to criminally investigate or prosecute any alcohol or drug abuse patient.[facility] HospitalIn the event this information is protected by the Federal Confidentiality of Alcohol and Drug Abuse Patient Records regulations: The Federal rules restrict any use of the information to criminally investigate or prosecute any alcohol or drug abuse patient.[facility] Hospital[facility] the event this information is protected by the Federal Confidentiality of Alcohol and Drug Abuse Patient Records regulations: The Federal rules restrict any use of the information to criminally investigate or prosecute any alcohol or drug abuse patient.[facility] Hospital[facility] the event this information is protected by the Federal Confidentiality of Alcohol and Drug Abuse Patient Records regulations: The Federal rules restrict any use of the information to criminally investigate or prosecute any alcohol or drug abuse patient.[facility] HospitalIn the event this information is protected by the Federal Confidentiality of Alcohol and Drug Abuse Patient Records regulations: The Federal rules restrict any use of the information to criminally investigate or prosecute any alcohol or drug abuse patient.[facility] HospitalIn the event this information is protected by the Federal Confidentiality of Alcohol and Drug Abuse Patient Records regulations: The Federal rules restrict any use of the information to criminally investigate or prosecute any alcohol or drug abuse patient.[facility] HospitalIn the event this information is protected by the Federal Confidentiality of Alcohol and Drug Abuse Patient Records regulations: The Federal rules restrict any use of the information to criminally investigate or prosecute any alcohol or drug abuse patient.[facility] HospitalIn the event this information is protected by the Federal Confidentiality of Alcohol and Drug Abuse Patient Records regulations: The Federal rules restrict any use of the information to criminally investigate or prosecute any alcohol or drug abuse patient.[facility] HospitalIn the event this information is protected by the Federal Confidentiality of Alcohol and Drug Abuse Patient Records regulations: The Federal rules restrict any use of the information to criminally investigate or prosecute any alcohol or drug abuse patient.[facility] HospitalIn the event this information is protected by the Federal Confidentiality of Alcohol and Drug Abuse Patient Records regulations: The Federal rules restrict any use of the information to criminally investigate or prosecute any alcohol or drug abuse patient.[facility] Hospital[facility] the event this information is protected by the Federal Confidentiality of Alcohol and Drug Abuse Patient Records regulations: The Federal rules restrict any use of the information to criminally investigate or prosecute any alcohol or drug abuse patient.[facility] the event this information is protected by the Federal Confidentiality of Alcohol and Drug Abuse Patient Records regulations: The Federal rules restrict any use of the information to criminally investigate or prosecute any alcohol or drug abuse patient.[facility] Hospital[facility] the event this information is protected by the Federal Confidentiality of Alcohol and Drug Abuse Patient Records regulations: The Federal rules restrict any use of the information to criminally investigate or prosecute any alcohol or drug abuse patient.[facility] HospitalIn the event this information is protected by the Federal Confidentiality of Alcohol and Drug Abuse Patient Records regulations: The Federal rules restrict any use of the information to criminally investigate or prosecute any alcohol or drug abuse patient.[facility] Clinic[facility] the event this information is protected by the Federal Confidentiality of Alcohol and Drug Abuse Patient Records regulations: The Federal rules restrict any use of the information to criminally investigate or prosecute any alcohol or drug abuse patient.[facility] HospitalIn the event this information is protected by the Federal Confidentiality of Alcohol and Drug Abuse Patient Records regulations: The Federal rules restrict any use of the information to criminally investigate or prosecute any alcohol or drug abuse patient.[facility] HospitalIn the event this information is protected by the Federal Confidentiality of Alcohol and Drug Abuse Patient Records regulations: The Federal rules restrict any use of the information to criminally investigate or prosecute any alcohol or drug abuse patient.[facility] HospitalIn the event this information is protected by the Federal Confidentiality of Alcohol and Drug Abuse Patient Records regulations: The Federal rules restrict any use of the information to criminally investigate or prosecute any alcohol or drug abuse patient.[facility] HospitalIn the event this information is protected by the Federal Confidentiality of Alcohol and Drug Abuse Patient Records regulations: The Federal rules restrict any use of the information to criminally investigate or prosecute any alcohol or drug abuse patient.[facility] HospitalIn the event this information is protected by the Federal Confidentiality of Alcohol and Drug Abuse Patient Records regulations: The Federal rules restrict any use of the information to criminally investigate or prosecute any alcohol or drug abuse patient.[facility] HospitalIn the event this information is protected by the Federal Confidentiality of Alcohol and Drug Abuse Patient Records regulations: The Federal rules restrict any use of the information to criminally investigate or prosecute any alcohol or drug abuse patient.[facility] HospitalIn the event this information is protected by the Federal Confidentiality of Alcohol and Drug Abuse Patient Records regulations: The Federal rules restrict any use of the information to criminally investigate or prosecute any alcohol or drug abuse patient.[facility] HospitalIn the event this information is protected by the Federal Confidentiality of Alcohol and Drug Abuse Patient Records regulations: The Federal rules restrict any use of the information to criminally investigate or prosecute any alcohol or drug abuse patient.[facility] HospitalIn the event this information is protected by the Federal Confidentiality of Alcohol and Drug Abuse Patient Records regulations: The Federal rules restrict any use of the information to criminally investigate or prosecute any alcohol or drug abuse patient.[facility] HospitalIn the event this information is protected by the Federal Confidentiality of Alcohol and Drug Abuse Patient Records regulations: The Federal rules restrict any use of the information to criminally investigate or prosecute any alcohol or drug abuse patient.[facility] HospitalIn the event this information is protected by the Federal Confidentiality of Alcohol and Drug Abuse Patient Records regulations: The Federal rules restrict any use of the information to criminally investigate or prosecute any alcohol or drug abuse patient.[facility] Reason for Visit (unrecogniz ed section and content) Specialty Diagnoses / Procedures Referred By Contac t Referred To Contact [facility] Diagnoses Gait abnormality Hip pain, unspecified laterality Closed displaced fracture of fifth metatarsal bone of right foot with delayed healing, subsequent encounter Procedures CONSULT TO PHYSICAL THERAPY PHYSICAL THERAPY EVALUATION HIGH COMPLEX 45 MINS Amos Floyd MD [address] [place] [address] [address] Referral ID Status Reason Start Date Expiration Date Visits Requested Visits Authorized [id number] Authorized Auto-Generat ed Referral 02/20/2023 02/20/2024 99 99 Reason Comments F/U 6 months Reason Comments Derm Problem Reason Comments Cough Cough, ST and fever, bodyaches x 1 day Reason Comments Results Reason Onset Date Comments 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 10/28/2021 enrollment/ [facility] Reason Comments Rash Reason Onset Date Comments Refill Request 12/02/2021 Reason Comments Medicare Wellness Exam Reason Comments Dermatitis Reason Onset Date Comments Refill Request 03/14/2022 Reason Comments Insurance Authorization Opzelura Reason Comments Dermatitis Follow up Reason Comments Patient 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 Reason Onset Date Comments Refill Request 09/19/2022 Reason Onset Date Comments Left Hip Pain Immunizations 10/26/2022 Flu vaccination Reason Comments PT Eval Specialty Diagnoses / Procedures Referred By Contac t Referred To Contact [facility] Diagnoses Hip pain, unspecified laterality Procedures CONSULT TO PHYSICAL THERAPY PHYSICAL THERAPY EVALUATION HIGH [facility] 45 MINS Amos Floyd MD [address] [place] [address] [facility] [address] [place] [id number] Referral ID Status Reason Start Date Expiration Date V isits Requested Visits Authorized [id number] Closed Auto-Generate d Referral 10/26/2022 02/19/2023 1 1 Reason Comments Pain (foot) Right side of R foot x 2 days Reason Comments Refill Request Reason Comments Established Patient Follow Up Reason Comments Medicare Wellness Exam F/U 6 months Reason Comments PT Eval Care Teams (unrecognized sec tion and content) Chemistry Intern Relationship Specialty Start Date End Date Amos Floyd MD [address] [facility] [place] [address] PCP - General 04/16/04 Chemistry Intern Relationship Specialty Start Date End Date Amos Floyd MD [address] [facility] [place] [address] PCP - General 04/16/04 Chemistry Intern Relationship Specialty Start Date End Date Amos Floyd MD [address] [facility] [place] [address] PCP - General 04/16/04 Chemistry Intern Relationship Specialty Start Date End Date Amos Floyd MD [address] [facility] [place] [address] PCP - General 04/16/04 Chemistry Intern Relationship Specialty Start Date End Date Amos Floyd MD [address] [facility] [place] [address] PCP - General 04/16/04 Chemistry Intern Relationship Specialty Start Date End Date Amos Floyd MD [address] [facility] [place] [address] PCP - General 04/16/04 Chemistry Intern Relationship Specialty Start Date End Date Amos Floyd MD [address] [facility] [place] [address] PCP - General 04/16/04 Chemistry Intern Relationship Specialty Start Date End Date Amos Floyd MD [address] [facility] [place] [address] PCP - General 04/16/04 Chemistry Intern Relationship Specialty Start Date End Date Amos Floyd MD [address] [facility] [place] [address] PCP - General 04/16/04 Chemistry Intern Relationship Specialty Start Date End Date Amos Floyd MD [address] [facility] [place] [address] PCP - General 04/16/04 Chemistry Intern Relationship Specialty Start Date End Date Amos Floyd MD [address] [facility] [place] [address] PCP - General 04/16/04 Chemistry Intern Relationship Specialty Start Date End Date Amos Floyd MD [address] [facility] [place] [address] PCP - General 04/16/04 Chemistry Intern Relationship Specialty Start Date End Date Amos Floyd MD [address] [facility] [place] [address] PCP - General 04/16/04 Chemistry Intern Relationship Specialty Start Date End Date Amos Floyd MD [address] [facility] [place] [address] PCP - General 04/16/04 Chemistry Intern Relationship Specialty Start Date End Date Amos Floyd MD [address] [facility] [place] [address] PCP - General 04/16/04 Chemistry Intern Relationship Specialty Start Date End Date Amos Floyd MD [address] [facility] [place] [address] PCP - General 04/16/04 Chemistry Intern Relationship Specialty Start Date End Date Amos Floyd MD [address] [facility] [place] [address] PCP - General 04/16/04 Chemistry Intern Relationship Specialty Start Date End Date Amos Floyd MD [address] [place] [address] PCP - General 04/16/04 Chemistry Intern Relationship Specialty Start Date End Date Amos Floyd MD [address] [place] [address] PCP - General 04/16/04 Chemistry Intern Relationship Specialty Start Date End Date Amos Floyd MD [address] [place] [address] PCP - General 04/16/04 Chemistry Intern Relationship Specialty Start Date End Date Amos Floyd MD [address] [place] [address] PCP - General 04/16/04 Chemistry Intern Relationship Specialty Start Date End Date Amos Floyd MD [address] [place] [address] PCP - General 04/16/04 Chemistry Intern Relationship Specialty Start Date End Date Amos Floyd MD [address] [place] [address] PCP - General 04/16/04 Chemistry Intern Relationship Specialty Start Date End Date Amos Floyd MD [address] [place] [address] PCP - General 04/16/04 FOR RECORDS PERTAINING TO PATIENTS WHO ARE OR HAVE BEEN ENROLLED IN A CHEMICAL DEPENDENCY/SUBSTANCEABUSE PROGRAM, SOME INFORMATION MAY BE OMITTED. This clinical summary was aggregated from multiple sources. Caution should be exercised in using it in the provision of clinical care. This summary normalizes information from multiple sources, and as a consequence, information in this document may materially change the coding, format and clinical context of patient data. In addition, data may be omitted in some cases. CLINICAL DECISIONS SHOULD BE BASED ON THE PRIMARY CLINICAL RECORDS. [facility] [employer] [facility]. provides no warranty or guarantee of the accuracy or completeness of information in this document.
== END | disposition home or self-care (01) ==
LOC: CVS 13:36
PROVIDERS: PCP Internal Medicine; Referring Provider Nurse Practitioner Family; Visit Provider Nurse Practitioner Family
DX: I34.1 Nonrheumatic mitral (valve) prolapse (principal); I25.2 Old myocardial infarction; I35.0 Nonrheumatic aortic (valve) stenosis; R01.1 Cardiac murmur, unspecified
CPT/HCPCS: 93306

== ENCOUNTER 2023-04-12 12:33 | Outpatient (RCR) | payer MEDICARE, SELFPAY ==
[2023-03-28 11:25] LABS: International Normalized Ratio 1.7; Prothrombin Time (Protime)PT. 20.5 SECONDS (11.7-14.9)
[2023-03-28 11:37] LABS: Albumin, Serum 3.5 g/dL (3.2-5.0); BUN 52 mg/dL (7-18); BUN/Creat Ratio 26.5 RATIO (10-20); Calcium,Total 10.9 mg/dL (8.5-10.1); Chloride 106 mmol/L (98-107); Creatinine, Serum 1.96 mg/dL (0.55-1.02); EST Glomerular Filtration Rate 26 mL/min (>60); Est Glom Filt Rate - Afr Amer 32 mL/min (>60); Glucose 94 mg/dL (74-106); Phosphorus 2.8 mg/dL (2.5-4.9); Potassium 4.1 mmol/L (3.5-5.1); Sodium Level 137 mmol/L (136-145)
== END 2023-04-20 18:00 | disposition home or self-care (01) ==
LOC: LAB 12:33
PROVIDERS: PCP Internal Medicine; Referring Provider Physician Assistant Medical; Visit Provider Physician Assistant Medical
DX: Z79.01 Long term (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 (principal); Z86.711 Personal history of pulmonary embolism; I82.409 Acute embolism and thrombosis of unspecified deep veins of unspecified lower extremity; Z86.718 Personal history of other venous thrombosis and embolism
CPT/HCPCS: 36415; 36416; 80069; 85610

== ENCOUNTER 2023-05-15 14:44 | Emergency (ER) | payer MEDICARE, SELFPAY ==
[2023-05-15] VITALS (11 sets, daily range): BP systolic 68–146; BP diastolic 51–94; PULSE 74–111; RESP 16–21; TEMP 35.6–36.8; O2SAT 95–98; BMI 26.0
--- NOTE | 2023-05-15 15:14 | EDS_ITS ---
HPI History of Present Illness Chief Complaint: Abn Labs Informant: patient and family (daughter) Narrative Narrative: Patient sent in by her chemical laboratory technician Dr. Strickland at for high calcium level that was drawn before the weekend on Monday, today being Monday afternoon. She states she has felt weak and tired for the last 3 days or so, occasionally lightheaded, but nothing to the point where she would have come to the hospital if she was not directed to come here because of her abnormal labs. 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 Last time she checked her blood pressure it was 102 systolic a couple days ago. 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 [facility] Medical History Acute electrocardiogram changes Acute prerenal azotemia [place] disease Aortic stenosis Atopic dermatitis 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, stage 3 Closed head injury (03/20/20) Cystocele with rectocele Elevated serum creatinine Essential (primary) hypertension Frequent falls History of DVT (deep vein thrombosis) History of kidney cancer History of non-ST elevation myocardial infarction (NSTEMI) (04/2009) History of pulmonary embolism Hypercalcemia Hyperlipidemia Hypoglycemia (03/20/20) Hypokalemia Hypotension [facility] (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 MVP (mitral valve prolapse) Orthostatic hypotension Osteopenia determined by x-ray Pyelonephritis Recurrent deep vein thrombosis (DVT) Home Medications nitroglycerin 0.4 mg sublingual tablet 0.4 mg sublingual Q5-15M PRN Cardiac/Chest Pain 05/21/18 [History Last Taken Unknown] acetaminophen 500 mg tablet 1,000 mg (2 x 500 mg) PO Q6H PRN Pain Score 1-10 04/08/20 [Rx Last Taken 04/07/20 21:32] simvastatin 20 mg tablet 20 mg PO QHS 07/17/20 [History Last Taken Unknown] levocetirizine 5 mg tablet 5 mg PO DAILY 11/16/21 [History Last Taken Unknown] cholecalciferol (vitamin D3) 25 mcg (1,000 unit) capsule 50 mcg PO DAILY 01/25/22 [History Last Taken Unknown] denosumab 60 mg/mL subcutaneous syringe (Prolia) 60 mg subcut [id number] #1 mL 11/24/22 [Rx Last Taken Unknown] hydrocortisone 10 mg tablet 20 mg (2 x 10 mg) PO DAILY@0600 #90 tabs 11/24/22 [Rx Last Taken Unknown] amlodipine 2.5 mg tablet 2.5 mg PO DAILY #90 tabs 03/03/23 [Rx Last Taken Unknown] warfarin 2.5 mg tablet 2.5 mg PO DAILY@1700 #120 tabs 04/27/23 [Rx Last Taken Unknown] Allergy/AdvReac Type Severity Reaction Status Date / Time ciprofloxacin [From Cipro] Allergy Rash Verified 05/15/23 14:45 Penicillins Allergy Rash Verified 05/15/23 14:45 Family History (Reviewed 03/03/23 @ 09:07 by Ryan Ji FLIGHT TEST DATA ACQUISITION TECHNICIAN, FLIGHT TEST DATA ACQUISITION TECHNICIAN-C) Father CVA (cerebral vascular accident) Mother Myocardial infarction, Onset Age: 87 Other History of DVT (deep vein thrombosis) long term acute care registered nurse (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 Surgical History H/O partial nephrectomy (2009) H/O total cystectomy History of bladder repair surgery History of left heart catheterization (04/2009) History of left nephrectomy (2000) History of total abdominal hysterectomy Social History Smoking Status: Never smoker alcohol intake: never substance use type: does not use caffeine: Yes what type of physical activity do you participate in: walking seatbelt use: always do you feel safe at home: Yes additional social history: [employer]- Retired patient is retired ROS ROS ED Constitutional Constitutional ED: Reports fatigue; Denies chills or fever(s) Eyes Eyes: Denies change in vision or diplopia ENT ENT ED: Reports nasal congestion; Denies ear pain, rhinorrhea or sore throat Cardiovascular Cardiovascular: Reports lightheadedness; Denies chest pain, leg edema, palpitations or syncope Respiratory/Chest Respiratory/Chest: Reports cough; Denies dyspnea or sputum Gastrointestinal Gastrointestinal: Denies abdominal pain, diarrhea, nausea or vomiting Genitourinary Genitourinary ED: Denies dysuria or hematuria Musculoskeletal Musculoskeletal: Denies back pain or neck pain Integumentary Denies abscess or rash Neurologic Neurologic: Denies headache(s), paresthesias or weakness Psychiatric Psychiatric: Denies anxiety or suicidal thoughts EXAM Physical Exam Const Vital Signs: 05/15/23 14:44 05/15/23 14:47 05/15/23 15:07 Temperature 96.1 F L Temperature Source Temporal Pulse Rate 111 H 93 Respiratory Rate 18 19 H Respiratory Effort Normal Respiratory Pattern Normal Blood Pressure 68/51 L 96/67 Blood Pressure Mean 56 76 Pulse Ox 95 96 Oxygen Delivery Method Room Air Room Air 05/15/23 15:22 05/15/23 16:00 05/15/23 17:00 Temperature 98.1 F Temperature Source Oral Pulse Rate 94 91 90 Respiratory Rate 16 19 H 17 Respiratory Effort Respiratory Pattern Blood Pressure 99/82 H 126/88 H 123/78 H Blood Pressure Mean 87 100 93 Pulse Ox 98 96 96 Oxygen Delivery Method Room Air Room Air Room Air 05/15/23 17:57 05/15/23 19:00 05/15/23 20:00 Temperature 98.1 F 98.2 F 98.1 F Temperature Source Oral Oral Oral Pulse Rate 87 88 88 Respiratory Rate 16 16 16 Respiratory Effort Respiratory Pattern Blood Pressure 127/84 H 134/86 H 125/94 H Blood Pressure Mean 98 102 104 Pulse Ox 95 95 95 Oxygen Delivery Method Room Air Room Air Room Air Positive well nourished and well developed Constitutional Narrative: Well-appearing, conversive in full sentences no distress General Appearance ED: well developed and NAD HEENT Reports moist mucous membranes normocephalic and atraumatic Eyes PERRL and EOMs intact bilaterally Neck full ROM and supple Resp normal respiratory effort Resp Narrative: Mild symmetric end-expiratory bibasilar wheezes otherwise clear and in no distress. Cardio regular rate and regular rhythm Heart Sounds: murmur systolic III/ crescendo-decrescendo GI non-tender and non-distended Auscultation: normoactive bowel sounds Palpation: soft Back/Spine no CVA tenderness General Back: other FROM Extremity normal to inspection General Extremety ED: Negative for edema, pulses abnormal or tenderness General Extremity: Negative for edema or pulses abnormal Neuro oriented x3, CN's II-XII intact bilaterally and no sensory deficits noted Sensorium / Orientation: awake and alert Motor Exam: strength 5/5 throughout Psych mental status grossly normal Skin no rashes or lesions noted and no wounds MDM MDM MDM Narrative Medical decision making narrative: While repeating the patient's electrolytes and blood counts, she was given a liter of IV fluids, per the chemical laboratory technician's recommendation, and it was also told to me that we should also consider Zometa versus calcitonin. After receiving the labs back, I will call the chemical laboratory technician prior to administering any of these medications. Rechecking the patient's blood pressure before any treatment was done, she is 96/67 with a heart rate of 93. Also obtaining a chest x-ray given her cough and minor wheezes in the bases to evaluate for pneumonia/bacterial infection. 2 view chest x-ray my interpretation shows no acute pneumonia, radiology is in agreement. Calcium returning 11.1, renal function is noted and has been relatively poor according to the patient and her daughter. Her other electrolytes are within normal limits, and her blood counts are good as well. Called to discuss with her chemical laboratory technician Dr. Strickland, discussed with his PA who spoke with him, they are requesting CT of the chest, abdomen, pelvis screening for malignancy, in addition to getting Zometa 4 mg IV. Patient states she has had this before but is willing to undergo it again. She has chronic kidney disease with an EGFR that is 25 so I did this without contrast. I reviewed the images and the report which I agree with, it is negative for any obvious malignancy, with obvious limitations without contrast. At this time she is stable for discharge home. After her Zometa will discharge with instructions to call Dr. Strickland for follow-up instructions. With regards to the patient blood pressure, there have been no other low readings and she is asymptomatic with this, and agrees she is stable to go home after the IV fluids. Lab Data Attestation: I reviewed the patient's lab results. Labs: Laboratory Results - last 24 hr 05/15/23 15:23 WBC 11.0 RBC 5.09 Hgb 14.4 Hct 44.8 MCV 88.0 MCH 28.3 MCHC 32.1 RDW Std Deviation 45.5 H RDW Coeff of Slava 14.3 Plt Count 216 MPV 11.8 Immature Gran % (Auto) 0.700 Neut % (Auto) 65.8 Lymph % (Auto) 15.8 L [place] % (Auto) 10.7 H Eos % (Auto) 6.4 H Baso % (Auto) 0.6 Absolute Neuts (auto) 7.2 Absolute Lymphs (auto) 1.74 Nucleated RBC % 0 Sodium 134 L Potassium 3.6 Chloride 103 Carbon Dioxide 22.0 Anion Gap 9 BUN 36 H Creatinine 2.04 H Estim Creat Clear Calc 19.41 Est GFR (MDRD) Af Amer 30 L Est GFR (MDRD) Non-Af 25 L BUN/Creatinine Ratio 17.6 Glucose 103 Calcium 11.1 H Radiography Diagnostic Testing: Clinical Impression(s) from Imaging Studies Chest X-Ray 05/15/23 15:22 IMPRESSION: No acute abnormality is seen. Electronically Signed: Geovanni Song MD at 15:55 EDT , Chest/Abdomen/Pelvis CT 05/15/23 18:59 IMPRESSION: Hypoattenuated right renal lesions. Correlate with ultrasound if needed. Nonvisualization of the left kidney. Mild colonic diverticulosis. Electronically Signed: Derrick Ramon DO at 20:12 EDT , Management Discussion w/another healthcare provider: Order Detailer (Endocrine ) Discharge Plan Triage Chief Complaint: Abn Labs ED Provider: Juan Alberto Mcclendon Dx/Rx/DC Orders Clinical Impression: Hypercalcemia, [place] disease, Transient hypotension Instructions: Hypercalcemia Dc Prescriptions: No Action nitroglycerin 0.4 mg tablet, sublingual 0.4 mg SUBLINGUAL Q5-15M PRN (Reason: Cardiac/Chest Pain) simvastatin 20 mg tablet 20 mg PO QHS cholecalciferol (vitamin D3) 25 mcg (1,000 unit) capsule 50 mcg PO DAILY hydrocortisone 10 mg tablet 20 mg PO DAILY@0600 Qty: 90 6RF Rx Instructions: 2 tabs qam 1 tab qpm Prolia 60 mg/mL syringe 60 mg subcut [id number] Qty: 1 1RF amlodipine 2.5 mg tablet 2.5 mg PO DAILY Qty: 90 3RF acetaminophen 500 MG tablet 1,000 mg PO Q6H PRN (Reason: Pain Score 1-10) 0RF levocetirizine 5 mg tablet 5 mg PO DAILY Patient Comments: TAKE 1 TABLET BY MOUTH ONCE DAILY warfarin 2.5 mg tablet 2.5 mg PO DAILY@1700 Qty: 120 3RF Protocol: Dose Management Condition: Monday Dose/Route: 2.5 mg Instruction: 1 x 2.5 mg tablet Condition: Monday Dose/Route: 5 mg Instruction: 2 x 2.5 mg tablets Condition: Monday Dose/Route: 5 mg Instruction: 2 x 2.5 mg tablets Condition: Monday Dose/Route: 2.5 mg Instruction: 1 x 2.5 mg tablet Condition: Dose/Route: 2.5 mg Instruction: 1 x 2.5 mg tablet Condition: Monday Dose/Route: 2.5 mg Instruction: 1 x 2.5 mg tablet Condition: Monday Dose/Route: 2.5 mg Instruction: 1 x 2.5 mg tablet Protocol Text: Adjustment Start Date: Monday04/12/23 INR Value: 3.0 INR Date: 04/12/23 Recheck Date: 05/03/23 Rx Instructions: daily or as directed Primary Care Provider: Amos Fulton Referrals: Dr. Marco A [Other] - As soon as possible Disposition Disposition: Home, Self Care
[2023-05-15] MEDS: 0.9% Normal Saline (1000mL) 1,000 ML 999 ML IV (15:20)
--- NOTE | 2023-05-15 15:22 | RAD_ITS ---
STUDY: X-RAY CHEST REASON FOR EXAM: Female, 78 years old. Cough, low BP TECHNIQUE: PA and lateral views of the chest. COMPARISON: Comparison is made with prior study November 16, 2021. FINDINGS: EKG electrodes are seen. Pectus excavatum deformity. The lungs are clear and expanded. There is no demonstrated pleural abnormality. Normal size heart. Normal mediastinum and timothy. Normal visualized pulmonary arteries. There is atherosclerotic calcification of the aortic arch with tortuosity. There are diffuse degenerative changes of the visualized thoracic spine. Increased kyphosis. Normal visualized ribs, clavicles, and shoulders. There is no demonstrated abnormality of the visualized soft tissue structures of the upper abdomen. RAD/Chest PA and Lateral IMPRESSION: No acute abnormality is seen. Electronically Signed: Geovanni Song MD at 15:55 EDT ,
[2023-05-15 15:33] LABS: Absolute Lymphocyte Count 1.74 X10^3/uL (0.83-4.51); Absolute Neutrophil Count 7.2 X10^3/uL (2.0-7.7); Basophil# 0.07 X10^3/uL; Basophil% 0.6 % (0-1); Eosinophils% 6.4 % (0-5); Hematocrit 44.8 % (37-47); Hemoglobin 14.4 g/dL (12.0-15.0); Lymphocyte # 1.74 X10^3/ul (0.83-4.51); Lymphocyte % 15.8 % (19-41); Mean Corp Hgb Conc 32.1 g/dL (32-36); Mean Corpuscular Hgb 28.3 pg (27.0-32.0); Mean Platelet Vol. 11.8 fl (6.2-12.0); Monocyte# 1.18 X10^3/uL; Monocyte% 10.7 % (0-10); NRBC Flagged by Analyzer 0 % (0-5); Neutrophil # 7.23 X10^3/uL (2.7-7.7); Neutrophil % 65.8 % (47-70); Platelet Count 216 K/mm3 (150-450); RBC Distribution Width CV 14.3 % (11.6-14.6); RBC Distribution Width SD 45.5 fl (35.1-43.9); Red Blood Count 5.09 M/mm3 (4.2-5.4)
[2023-05-15 15:45] LABS: Anion Gap 9 (5-15); BUN 36 mg/dL (7-18); BUN/Creat Ratio 17.6 RATIO (10-20); Calcium,Total 11.1 mg/dL (8.5-10.1); Chloride 103 mmol/L (98-107); Creatinine, Serum 2.04 mg/dL (0.55-1.02); EST Glomerular Filtration Rate 25 mL/min (>60); Est Glom Filt Rate - Afr Amer 30 mL/min (>60); Estimated Creatinine Clearance 19.41 ml/min; Glucose 103 mg/dL (74-106); Potassium 3.6 mmol/L (3.5-5.1); Sodium Level 134 mmol/L (136-145)
--- NOTE | 2023-05-15 16:46 | ED.RN ---
CALLED DR GREGORY'S OFFICE @[phone], SHIPPER/RECEIVER LEFT A NOTE FOR HIM TO CALL US REGARDING PT. THEY STATED IT WOULD MOST LIKELY BE AROUND [phone].
--- NOTE | 2023-05-15 18:59 | CT_ITS ---
STUDY: CT CHEST, ABDOMEN T PELVIS WITHOUT CONTRAST REASON FOR EXAM: Female, 78 years old. hypercalcemia, CKD; screen for malignancy RADIATION DOSAGE (If Supplied By Facility): CTDIvol = ( 10.15 ) mGy, DLP = ( 840.40 ) mGycm TECHNIQUE: Transaxial imaging was performed without the administration of intravenous contrast material. Individualized dose optimization techniques were used for this CT. COMPARISON: FINDINGS: CHEST The lungs are normal. There is no demonstrated pleural abnormality. Normal heart and pericardium. Coronary arterial calcifications are present. Normal mediastinum. Normal hilar regions. Normal unenhanced pulmonary arteries. Normal aorta arch and descending thoracic aorta. Old right rib and sternal fractures. Degenerative vertebral changes. Mild wedge compression of T6 and T10. ABDOMEN Normal liver. Nonvisualization of the gallbladder. No significant dilatation of the extrahepatic biliary system. Normal spleen. Normal pancreas. Normal bilateral adrenal glands. Up to 1.5 cm hypoattenuated nodules in the right kidney likely cystic in nature. Nonvisualization of the left kidney. Normal visualized stomach. Normal small intestine. Mild diverticulosis of the colon. The appendix is not visualized. Normal abdominal aorta. There is a filter in the inferior vena cava. Normal retroperitoneum. Normal abdominal wall. Mild degenerative vertebral changes. Grade 1 spondylolisthesis at L3-4. PELVIS Normal urinary bladder. There is no pelvic fluid. There is no pelvic lymphadenopathy or mass lesion. Normal visualized pelvic arteries. 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 CT/CT Chest, Abd, Pelvis WO Cont IMPRESSION: Hypoattenuated right renal lesions. Correlate with ultrasound if needed. Nonvisualization of the left kidney. Mild colonic diverticulosis. Electronically Signed: Derrick Ramon DO at 20:12 EDT ,
[2023-05-15] MEDS: Zoledronic Acid 4 MG in 0.9% Normal Saline (100mL Bag) 100 ML 210 MG IV (21:43)
== END 2023-05-15 22:31 | disposition home or self-care (01) ==
PROVIDERS: Emergency Provider Emergency Medicine; PCP Internal Medicine; Visit Provider Emergency Medicine
DX: E83.52 Hypercalcemia (principal); E27.1 Primary adrenocortical insufficiency; N18.30 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, stage 3 unspecified; R03.1 Nonspecific low blood-pressure reading; R05.9 Cough, unspecified; I12.9 Hypertensive chronic kidney disease with stage 1 through stage 4 chronic kidney disease, or unspecified chronic kidney disease; Z79.01 Long term (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; Z79.899 Other long term (current) drug therapy; R06.2 Wheezing
CPT/HCPCS: 71046; 71250; 74176; 80048; 85025; 96361; 96365; 99284; J3489; J7030; J7050; A4216

== ENCOUNTER 2023-05-23 20:02 | Emergency (ER) | payer MEDICARE, SELFPAY ==
[2023-05-23 20:02] VITALS: BP 115/77; PULSE 109; RESP 16; TEMP 36.6; O2SAT 95; BMI 25.8
--- NOTE | 2023-05-23 20:17 | EKG12_ITS ---
Test Reason : DYSRHYTHMIA Blood Pressure : / mmHG Vent. Rate : 093 BPM Atrial Rate : 093 BPM P-R Int : 152 ms QRS Dur : 092 ms QT Int : 342 ms P-R-T Axes : 048 -20 021 degrees QTc Int : 425 ms Sinus rhythm with Premature supraventricular complexes Nonspecific T wave abnormality Abnormal ECG Confirmed by FIONA ZELAYA, LARISA ([id number]), editorial intern AMA PETERSEN ([id number]) on 05/24/2023 9:36:38 AM Referred By: Confirmed By:LARISA JAIMES MD
[2023-05-23 20:44] LABS: Absolute Lymphocyte Count 1.83 X10^3/uL (0.83-4.51); Absolute Neutrophil Count 5.7 X10^3/uL (2.0-7.7); Basophil# 0.08 X10^3/uL; Basophil% 0.8 % (0-1); Eosinophil# 0.92 X10^3/uL; Eosinophils% 9.7 % (0-5); Hematocrit 43.3 % (37-47); Hemoglobin 14.5 g/dL (12.0-15.0); Lymphocyte # 1.83 X10^3/ul (0.83-4.51); Lymphocyte % 19.2 % (19-41); Mean Corp Hgb Conc 33.5 g/dL (32-36); Mean Corpuscular Hgb 28.6 pg (27.0-32.0); Mean Corpuscular Volume 85.4 fL (81-99); Mean Platelet Vol. 10.9 fl (6.2-12.0); Monocyte# 0.92 X10^3/uL; Monocyte% 9.7 % (0-10); NRBC Flagged by Analyzer 0 % (0-5); Neutrophil # 5.67 X10^3/uL (2.7-7.7); Neutrophil % 59.7 % (47-70); Platelet Count 271 K/mm3 (150-450); RBC Distribution Width CV 14.2 % (11.6-14.6); RBC Distribution Width SD 44.1 fl (35.1-43.9); Red Blood Count 5.07 M/mm3 (4.2-5.4); White Blood Count 9.5 K/mm3 (4.4-11.0)
--- NOTE | 2023-05-23 20:44 | RAD_ITS ---
STUDY: X-RAY CHEST REASON FOR EXAM: Female, 78 years old. dizziness TECHNIQUE: Single frontal view of the chest. COMPARISON: CT chest May 15, 2023. Chest x-ray May 15, 2023. FINDINGS: The lungs are clear and expanded. There is no demonstrated pleural abnormality. Normal size heart. Normal mediastinum and timothy. Normal visualized pulmonary arteries. Normal visualized aortic arch and descending thoracic aorta. Normal visualized thoracic spine. Normal visualized ribs, clavicles, and shoulders. There is no demonstrated abnormality of the visualized soft tissue structures of the upper abdomen. RAD/Chest 1 View (Portable) IMPRESSION: Normal x-ray examination of the chest. Electronically Signed: Chino Rendon MD at 21:40 EDT ,
[2023-05-23 20:55] LABS: International Normalized Ratio 2.1
[2023-05-23 21:03] LABS: AST(SGOT) 64 U/L (15-37); Alanine Aminotransfer ALT/SGPT 62 U/L (13-56); Albumin, Serum 2.9 g/dL (3.2-5.0); Alkaline Phosphatase 76 U/L (45-117); Anion Gap 8 (5-15); BUN 39 mg/dL (7-18); BUN/Creat Ratio 18.9 RATIO (10-20); Calcium,Total 11.9 mg/dL (8.5-10.1); Chloride 105 mmol/L (98-107); Creatinine, Serum 2.06 mg/dL (0.55-1.02); EST Glomerular Filtration Rate 25 mL/min (>60); Est Glom Filt Rate - Afr Amer 30 mL/min (>60); Estimated Creatinine Clearance 19.14 ml/min; Glucose 144 mg/dL (74-106); Protein, Total 5.9 g/dL (6.4-8.2); Sodium Level 136 mmol/L (136-145); Troponin-I HS 32 pg/mL (3.0-54.0)
[2023-05-23 21:37] LABS: Ionized Calcium Order 6.22
[2023-05-23 22:02] VITALS: BP 141/107; PULSE 85; RESP 19; O2SAT 93
[2023-05-23] MEDS: 0.9% Normal Saline (1000mL) 1,000 ML 999 ML IV (22:41)
--- NOTE | 2023-05-23 22:42 | EDS_ITS ---
HPI History of Present Illness Chief Complaint: Abn Labs Narrative Narrative: 78-year-old female with history of [place]'s disease who currently is treated by Dr. Strickland from [facility] for this. Patient was seen about a week ago for similar symptoms in the emergency room due to elevated ionized calcium. Her symptoms that point were weakness which is mild difficulty walking, body aches. She was treated with Zometa at that point and some IV fluids and states she was here in the ER for about 9 hours and then discharged home. She states she was instructed to follow-up with her primary care physician however referring to the ER physicians notes she saw her she was supposed to follow-up with Dr. Strickland. She did not cannot follow-up today with her primary care physician they did repeat lab work and her ionized calcium was similar to was a week ago and she was immediately sent back to the emergency room. Her symptoms are mild today. She is very pleasant. She is not confused. She is alert and awake. She is moving all 4 extremities. She does states she feels generally weak. 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 MVP (mitral valve prolapse) Orthostatic hypotension Osteopenia determined by x-ray Pyelonephritis Recurrent deep vein thrombosis (DVT) Home Medications nitroglycerin 0.4 mg sublingual tablet 0.4 mg sublingual Q5-15M PRN Cardiac/Chest Pain 05/21/18 [History Last Taken Unknown] acetaminophen 500 mg tablet 1,000 mg (2 x 500 mg) PO Q6H PRN Pain Score 1-10 04/08/20 [Rx Last Taken 04/07/20 21:32] simvastatin 20 mg tablet 20 mg PO QHS 07/17/20 [History Last Taken Unknown] denosumab 60 mg/mL subcutaneous syringe (Prolia) 60 mg subcut [id number] #1 mL 11/24/22 [Rx Last Taken Unknown] hydrocortisone 10 mg tablet 20 mg (2 x 10 mg) PO DAILY@0600 #90 tabs 11/24/22 [Rx Last Taken Unknown] amlodipine 2.5 mg tablet 2.5 mg PO DAILY #90 tabs 03/03/23 [Rx Last Taken Unknown] warfarin 2.5 mg tablet 2.5 mg PO DAILY@1700 #120 tabs 04/27/23 [Rx Last Taken Unknown] cephalexin 500 mg capsule 500 mg PO BID 05/23/23 [History Last Taken Unknown] dupilumab 200 mg/1.14 mL subcutaneous pen injector (Dupixent) 200 mg subcut .COMPLEX 05/23/23 [History Last Taken Unknown] fluticasone propionate 50 mcg/actuation nasal spray,suspension 2 spray intranasal DAILY 05/23/23 [History Last Taken Unknown] meclizine 25 mg tablet 25 mg PO Q6H PRN PRN dizziness 05/23/23 [History Last Taken Unknown] Allergy/AdvReac Type Severity Reaction Status Date / Time ciprofloxacin [From Cipro] Allergy Rash Verified 05/23/23 20:04 Penicillins Allergy Rash Verified 05/23/23 20:04 Family History Father CVA (cerebral vascular accident) Mother Myocardial infarction, Onset Age: 87 Other History of DVT (deep vein thrombosis) senior care (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 Surgical History H/O partial nephrectomy (2009) H/O total cystectomy History of bladder repair surgery History of left heart catheterization (04/2009) History of left nephrectomy (2000) History of total abdominal hysterectomy Social History Smoking Status: Never smoker alcohol intake: never substance use type: does not use caffeine: Yes what type of physical activity do you participate in: walking seatbelt use: always do you feel safe at home: Yes additional social history: [employer]- Retired patient is retired ROS ROS ED Constitutional Constitutional ED: Denies chills, fever(s) or sweats Eyes Eyes: Denies blurry vision or change in vision ENT ENT ED: Denies ear pain or sore throat Cardiovascular Cardiovascular: Denies chest pain, palpitations or racing heartbeat Respiratory/Chest Respiratory/Chest: Denies cough, dyspnea or sputum Gastrointestinal Gastrointestinal: Denies abdominal pain, constipation, diarrhea, nausea or vomiting Genitourinary Genitourinary ED: Denies dysuria, hematuria or urinary frequency Musculoskeletal Musculoskeletal: Reports myalgias; Denies arthralgias or neck pain Integumentary Denies abscess, Abrasions or rash Neurologic Neurologic: Denies headache(s), paresthesias or weakness Psychiatric Psychiatric: Denies anxiety, depression, suicidal ideation or suicidal thoughts Endocrine Endocrinology: Denies polydipsia or polyuria EXAM Physical Exam Const Vital Signs: 05/23/23 20:02 05/23/23 20:16 05/23/23 22:02 Temperature 97.8 F Temperature Source Temporal Pulse Rate 109 H 85 Respiratory Rate 16 19 H Respiratory Effort Normal Respiratory Pattern Normal Blood Pressure 115/77 141/107 H Blood Pressure Mean 89 118 Pulse Ox 95 93 Oxygen Delivery Method Room Air Room Air Positive well nourished and well developed General Appearance ED: well developed and NAD; Negative for pallor HEENT Reports moist mucous membranes trauma Eyes PERRL and EOMs intact bilaterally General Eye ED: Negative for pale conjunctiva Chest Wall inspection of chest normal Resp normal respiratory effort and clear to auscultation bilaterally Auscultation: Negative for rales, rhonchi or wheezes Cardio regular rate and regular rhythm Extremity normal to inspection General Extremety ED: Yes edema General Extremity: edema Neuro oriented x3 and CN's II-XII intact bilaterally Sensorium / Orientation: alert Motor Exam: strength 5/5 throughout Psych mental status grossly normal Skin no rashes or lesions noted General Skin Exam: Negative for jaundice or pallor MDM MDM MDM Narrative Medical decision making narrative: Patient was pending today with elevated calcium levels. Her ionized calcium was elevated outside the normal range on 05/12/2023 at 1.60 which is not much different than it was earlier today. Patient states she is confused but was able to give a full history over the last week with all the times and dates associated it does not appear to be confused in any way. She also states she feels generally weak and uses her arms and legs to demonstrate this. She has 5 5 strength throughout. Vital signs are stable and she is afebrile. She was given IV fluids and we obtained some lab work today and her CBC shows no white blood cell count 9.5. Hemoglobin 14.5. Platelets are 271. Creatinine near baseline at 2.06. AST 64, ALT 62 of unknown significance. High-sensitivity troponin is 32 and her EKG on my interpretation showed normal sinus rhythm without any evidence of ischemic change or ectopy. Chest x-ray on my interpretation shows no acute process. Discussed the case with Dr. Strickland and he stated that the Zometa that the patient received last week would really take about 5 to 7 days to kick in. He was confused as to why she did not follow-up with him and I counseled him that she felt she was counseled to follow-up with a primary care provider at night that she got back to the emergency room today due to the repeat lab work. He recommended admission for IV fluids and offered to have the patient admitted to [facility] versus here at [facility] however patient expressed her previous history of Dr. 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 Currently awaiting follow-up call from the transfer line. She will need to be transferred but I believe she is stable for transfer via car and Dr. Strickland agreed but we are c urrently awaiting a bed assignment. Patient will be transferred when a bed is obtained. Impression: 1. Hypercalcemia 2. Generalized weakness 3. History of [place]'s disease Lab Data Labs: Laboratory Results - last 24 hr 05/23/23 20:30 WBC 9.5 RBC 5.07 Hgb 14.5 Hct 43.3 MCV 85.4 MCH 28.6 MCHC 33.5 RDW Std Deviation 44.1 H RDW Coeff of Slava 14.2 Plt Count 271 MPV 10.9 Immature Gran % (Auto) 0.900 Neut % (Auto) 59.7 Lymph % (Auto) 19.2 Frio % (Auto) 9.7 Eos % (Auto) 9.7 H Baso % (Auto) 0.8 Absolute Neuts (auto) 5.7 Absolute Lymphs (auto) 1.83 Nucleated RBC % 0 PT 23.0 H INR 2.1 Sodium 136 Potassium 4.0 Chloride 105 Carbon Dioxide 23.0 Anion Gap 8 BUN 39 H Creatinine 2.06 H Estim Creat Clear Calc 19.14 Est GFR (MDRD) Af Amer 30 L Est GFR (MDRD) Non-Af 25 L BUN/Creatinine Ratio 18.9 Glucose 144 H Calcium 11.9 H Total Bilirubin 0.40 AST 64 H ALT 62 H Alkaline Phosphatase 76 Troponin I High Sens 32 Total Protein 5.9 L Albumin 2.9 L Globulin 3.0 Albumin/Globulin Ratio 1.0 Radiography Diagnostic Testing: Clinical Impression(s) from Imaging Studies Chest X-Ray 05/23/23 20:44 IMPRESSION: Normal x-ray examination of the chest. Electronically Signed: Chino Rendon MD at 21:40 EDT Reading Location ID and State: [facility] / [place] Tel , Service support , Discharge Plan Triage Chief Complaint: Abn Labs ED Provider: Ankush Noguera Dx/Rx/DC Orders Prescriptions: No Action nitroglycerin 0.4 mg tablet, sublingual 0.4 mg SUBLINGUAL Q5-15M PRN (Reason: Cardiac/Chest Pain) simvastatin 20 mg tablet 20 mg PO QHS hydrocortisone 10 mg tablet 20 mg PO DAILY@0600 Qty: 90 6RF Rx Instructions: 2 tabs qam 1 tab qpm Prolia 60 mg/mL syringe 60 mg subcut [id number] Qty: 1 1RF amlodipine 2.5 mg tablet 2.5 mg PO DAILY Qty: 90 3RF Patient Comments: pt states BP is low so she isnt taking it. acetaminophen 500 MG tablet 1,000 mg PO Q6H PRN (Reason: Pain Score 1-10) 0RF meclizine 25 mg tablet 25 mg PO Q6H PRN PRN (Reason: dizziness) cephalexin 500 mg capsule 500 mg PO BID fluticasone propionate 50 mcg/actuation spray,suspension 2 spray INTRANASAL DAILY Dupixent Pen 200 mg/1.14 mL pen injector 200 mg subcut .COMPLEX Rx Instructions: 200 mg subcutaneously Every other week; warfarin 2.5 mg tablet 2.5 mg PO DAILY@1700 Qty: 120 3RF Protocol: Dose Management Condition: Monday Dose/Route: 2.5 mg Instruction: 1 x 2.5 mg tablet Condition: Monday Dose/Route: 5 mg Instruction: 2 x 2.5 mg tablets Condition: Monday Dose/Route: 5 mg Instruction: 2 x 2.5 mg tablets Condition: Monday Dose/Route: 2.5 mg Instruction: 1 x 2.5 mg tablet Condition: Dose/Route: 2.5 mg Instruction: 1 x 2.5 mg tablet Condition: Monday Dose/Route: 2.5 mg Instruction: 1 x 2.5 mg tablet Condition: Monday Dose/Route: 2.5 mg Instruction: 1 x 2.5 mg tablet Protocol Text: Adjustment Start Date: Monday04/12/23 INR Value: 3.0 INR Date: 04/12/23 Recheck Date: 05/03/23 Rx Instructions: daily or as directed Primary Care Provider: Amos Fulton Referrals: Amos Fulton MD [Primary Care Provider] -
[2023-05-23 23:38] LABS: Bacteria 0 SEEN /hpf (None Seen); Mucous, Urine 0 SEEN /hpf (<or=2+)
[2023-05-23 23:40] LABS: Color, Urine Yellow (Yellow); Glucose, Dipstick Normal (Normal); Ketone-Dipstick Negative (Negative); Leukocyte Esterase-Dipstick 500 /ul (Negative); Nitrite-Dipstick Negative (Negative); Occult Blood-Urine 25 /ul (Negative); Protein-Dipstick 15 mg/dl (Negative); Urine Bilirubin Dipstick Negative (Negative); Urine Clarity Clear (Clear); Urine Urobilinogen Normal (Normal); Urine pH 6.5 (5.0 - 8.0)
[2023-05-24 00:20] VITALS: BP 138/91; PULSE 81; RESP 15; TEMP 36.3; O2SAT 96
[2023-05-24 01:16] LABS: Red Blood Cells-Urine 10-25 SEEN /hpf (0-5); Squamous Epithelial Cells - UA 5-10 SEEN /hpf (5-10); White Blood Cells 50-100 SEEN /hpf (0-5)
[2023-05-24 07:06] LABS: Ionized Calcium 6.22 mg/dL (4.36-5.20)
== END 2023-05-24 00:01 | disposition short-term general hospital (02) ==
LOC: ED 20:28
PROVIDERS: Emergency Provider Student in an Organized Health Care Education/Training Program; PCP Internal Medicine; Visit Provider Student in an Organized Health Care Education/Training Program
DX: E83.52 Hypercalcemia (principal); E27.1 Primary adrenocortical insufficiency; N18.30 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, stage 3 unspecified; R53.1 Weakness; I12.9 Hypertensive chronic kidney disease with stage 1 through stage 4 chronic kidney disease, or unspecified chronic kidney disease; E78.5 Hyperlipidemia, unspecified; Z79.01 Long term (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; Z86.711 Personal history of pulmonary embolism; Z79.899 Other long term (current) drug therapy
CPT/HCPCS: 71045; 80053; 81001; 82330; 84484; 85025; 85610; 93005; 96360; 96361; 99285; J7030; A4216

== ENCOUNTER 2023-05-31 13:59 | Outpatient (CLI) | payer MEDICARE, SELFPAY ==
[2023-05-31] MEDS: 0.9% NaCl Peripheral Flush Adult/Peds IV (14:15)
[2023-05-31] MEDS: 0.9% Normal Saline (1000mL) 1,000 ML 999 ML IV (14:20)
[2023-05-31 14:22] VITALS: BP 101/71; PULSE 73; RESP 14; TEMP 36.1; O2SAT 99; BMI 25.6
[2023-05-31 15:33] VITALS: BP 134/77; PULSE 81
== END 2023-05-31 14:00 | disposition home or self-care (01) ==
LOC: MEDOUTP 14:00
PROVIDERS: PCP Internal Medicine
DX: I95.89 Other hypotension (principal); E27.1 Primary adrenocortical insufficiency; I82.409 Acute embolism and thrombosis of unspecified deep veins of unspecified lower extremity; Z86.718 Personal history of other venous thrombosis and embolism; Z86.711 Personal history of pulmonary embolism
CPT/HCPCS: 96360; 36416; 85610; A4216

== ENCOUNTER 2023-06-19 12:40 | Outpatient (RCR) | payer MEDICARE, SELFPAY ==
[2023-05-31 12:30] LABS: INR Fingerstick 2.1; Prothrombin Time Fingerstick 22.2 SEC (11.7-14.9)
[2023-06-19 12:46] LABS: Prothrombin Time Fingerstick 21.3 SEC (11.7-14.9)
== END 2023-06-20 22:43 | disposition home or self-care (01) ==
LOC: LAB 12:40
PROVIDERS: PCP Internal Medicine; Referring Provider Physician Assistant Medical; Visit Provider Physician Assistant Medical
DX: Z79.01 Long term (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 (principal); Z86.711 Personal history of pulmonary embolism; Z86.718 Personal history of other venous thrombosis and embolism; I95.89 Other hypotension; E27.1 Primary adrenocortical insufficiency; N18.32 Chronic kidney disease, stage 3b
CPT/HCPCS: 36416; 85610

== ENCOUNTER 2023-06-28 14:15 | Outpatient (RCR) | payer MEDICARE, SELFPAY ==
[2023-06-28 14:35] LABS: Prothrombin Time Fingerstick 21.5 SEC (11.7-14.9)
== END 2023-07-21 18:00 | disposition home or self-care (01) ==
LOC: LAB 14:15
PROVIDERS: PCP Internal Medicine; Referring Provider Physician Assistant Medical; Visit Provider Physician Assistant Medical
DX: Z79.01 Long term (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 (principal); Z86.711 Personal history of pulmonary embolism; I82.409 Acute embolism and thrombosis of unspecified deep veins of unspecified lower extremity; Z86.718 Personal history of other venous thrombosis and embolism
CPT/HCPCS: 36416; 85610

== ENCOUNTER 2023-08-07 15:20 | Outpatient (RCR) | payer MEDICARE, SELFPAY ==
[2023-08-07 15:53] LABS: INR Fingerstick 2.1; Prothrombin Time Fingerstick 22.4 SEC (11.7-14.9)
== END 2023-08-07 18:00 | disposition home or self-care (01) ==
LOC: LAB 15:20
PROVIDERS: PCP Internal Medicine; Referring Provider Physician Assistant Medical; Visit Provider Physician Assistant Medical
DX: Z79.01 Long term (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 (principal); Z86.711 Personal history of pulmonary embolism; I82.409 Acute embolism and thrombosis of unspecified deep veins of unspecified lower extremity; Z86.718 Personal history of other venous thrombosis and embolism
CPT/HCPCS: 36416; 85610

== ENCOUNTER 2023-09-07 12:38 | Outpatient (RCR) | payer MEDICARE, SELFPAY ==
[2023-09-07 12:58] LABS: INR Fingerstick 2.1
== END 2023-09-20 18:00 | disposition home or self-care (01) ==
LOC: LAB 12:38
PROVIDERS: PCP Internal Medicine; Referring Provider Physician Assistant Medical; Visit Provider Physician Assistant Medical
DX: Z79.01 Long term (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 (principal); Z86.711 Personal history of pulmonary embolism; Z86.718 Personal history of other venous thrombosis and embolism
CPT/HCPCS: 36416; 85610

== ENCOUNTER 2023-10-10 15:54 | Outpatient (RCR) | payer MEDICARE, SELFPAY ==
[2023-10-10 16:36] LABS: International Normalized Ratio 2.1; Prothrombin Time (Protime)PT. 23.2 SECONDS (11.7-14.9)
[2023-10-10 16:53] LABS: Albumin, Serum 3.4 g/dL (3.2-5.0); BUN 44 mg/dL (7-18); BUN/Creat Ratio 29.9 RATIO (10-20); Calcium,Total 9.4 mg/dL (8.5-10.1); Chloride 111 mmol/L (98-107); Creatinine, Serum 1.47 mg/dL (0.55-1.02); EST Glomerular Filtration Rate 36 mL/min (>60); Est Glom Filt Rate - Afr Amer 44 mL/min (>60); Glucose 94 mg/dL (74-106); Phosphorus 3.2 mg/dL (2.5-4.9); Potassium 4.3 mmol/L (3.5-5.1); Sodium Level 140 mmol/L (136-145)
== END 2023-10-10 18:00 | disposition home or self-care (01) ==
LOC: LAB 15:54
PROVIDERS: Nurse Practitioner Gerontology; PCP Internal Medicine; Referring Provider Physician Assistant Medical; Visit Provider Physician Assistant Medical
DX: Z79.01 Long term (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 (principal); Z86.711 Personal history of pulmonary embolism; I82.409 Acute embolism and thrombosis of unspecified deep veins of unspecified lower extremity; N18.32 Chronic kidney disease, stage 3b; I34.1 Nonrheumatic mitral (valve) prolapse; I35.0 Nonrheumatic aortic (valve) stenosis
CPT/HCPCS: 36415; 80069; 85610

== ENCOUNTER 2023-11-08 12:44 | Outpatient (RCR) | payer MEDICARE, SELFPAY ==
[2023-11-08 13:00] LABS: INR Fingerstick 2.7; Prothrombin Time Fingerstick 27.1 SEC (11.7-14.9)
== END 2023-11-08 18:00 | disposition home or self-care (01) ==
LOC: LAB 12:44
PROVIDERS: PCP Internal Medicine; Referring Provider Physician Assistant Medical; Visit Provider Physician Assistant Medical
DX: Z79.01 Long term (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 (principal); Z86.711 Personal history of pulmonary embolism; I82.409 Acute embolism and thrombosis of unspecified deep veins of unspecified lower extremity; Z86.718 Personal history of other venous thrombosis and embolism
CPT/HCPCS: 36416; 85610

== ENCOUNTER → 2023-11-20 | Outpatient (CLI) | payer MEDICARE, SELFPAY | END | disposition home or self-care (01) | LOC: LABSPEC 16:02 | PROVIDERS: PCP Internal Medicine; Referring Provider Urology; Visit Provider Urology | DX: R30.0 Dysuria (principal) | CPT/HCPCS: 87077; 87086; 87088; 87186 ==

== ENCOUNTER → 2023-12-07 | Outpatient (CLI) | payer MEDICARE, SELFPAY ==
--- NOTE | 2023-12-07 07:54 | CT_ITS ---
EXAM: CT ABDOMEN AND PELVIS WITHOUT AND WITH INTRAVENOUS CONTRAST CLINICAL INDICATION: DYSURIA/SIGNS AND SC OF GENITOURINARY SX TECHNIQUE: Helically acquired images were obtained of the abdomen and pelvis without and with intravenous contrast. This CT exam was performed using one or more of the following dose reduction techniques: automated exposure control, adjustment of the mA and/or kV according to patient size, and/or use of iterative reconstruction technique. CONTRAST: IV 100mL Isovue-300 RADIATION DOSE: CTDIvol = 12.91 mGy, DLP = 1027.67 mGy-cm. COMPARISON: May 15, 2023. FINDINGS: LOWER THORAX: The heart is not fully included. ABDOMEN: LIVER: Unremarkable. Homogeneous. No focal mass. GALLBLADDER AND BILE DUCTS: Cholecystectomy. No intra- or extrahepatic biliary ductal dilation. PANCREAS: Unremarkable. No focal cystic or solid mass. SPLEEN: Coarse calcification in the splenic hilum appears stable. ADRENALS: Unremarkable. No nodules. KIDNEYS AND URETERS: Scarring at the right kidney with at least 3 presumed cyst and subcortical scarring, no complex mass. Normal renal excretion on delayed phase exam with contrast throughout the right ureter and contrast in the bladder. Left kidney is not present, similar to prior exam. STOMACH AND BOWEL: Mildly thick-walled appearance of the collapsed rectum and anus may be due to proctitis-distal colitis. Mildly prominent small bowel content, no evidence of a high-grade obstruction. Diverticulosis of the distal descending and sigmoid colon, no evidence of acute diverticulitis. Mild diverticulosis of the right colon. Mild stool in the right colon. Mild gas in mid to distal colon. PELVIS: APPENDIX: Nonvisualized appendix. BLADDER: See above. REPRODUCTIVE: Hysterectomy. ABDOMEN and PELVIS: INTRAPERITONEAL SPACE: Unremarkable. No ascites or other fluid collection. No free air. BONES/JOINTS: There is similar callus at a right posterior 10th rib fracture. Degenerative spine changes, including marked disc space narrowing at L4-5 mild anterior spondylosis. Slight anterolisthesis of L3 with respect to L4, stable findings compared to prior exam. Sclerosis of S3, presumably old fracture. No suspicious lytic or blastic abnormality. SOFT TISSUES: Unremarkable. No discrete abdominal or pelvic wall hernia. VASCULATURE: IVC filter again noted. Abdominal aorta is non-dilated. LYMPH NODES: Unremarkable. No enlarged lymph nodes. CT/CT Abd/Pelvis W/WO Contrast IMPRESSION: 1. Absent left kidney. Similar appearance of right kidney with cortical scarring and thinning and multiple cysts. No evidence of typical pyelonephritis or cystitis. Normal renal enhancement and excretion. 2. Suspicion of distal colitis-proctitis, especially involving the rectum. Collapsed and mildly thick-walled. 3. Scattered diverticulosis. No evidence of diverticulitis. 4. Zone of sclerosis across the sacrum at S3, larger than expected for infiltrating mass, suspected sclerosis from old healed fracture. There is old healed right posterior rib fracture. Correlate with history of known sacral fracture or history of neoplasm. This is new from 2013 but similar to May 15, 2023. 5. IVC filter. Please correlate with whether there is a management plan in place for the IVC filter. Recommendation per radiology quality guidelines 2023: Consider nonemergent follow-up with interventional clinician if there is no management plan for the IVC filter. Electronically Signed: Jaylene Rowell MD at 20:12 EDT ,
[2023-12-07 08:25] LABS: CREATININE FINGERSTICK 1.4 mg/dL (0.55-1.02)
== END | disposition home or self-care (01) ==
LOC: CT 07:53
PROVIDERS: PCP Internal Medicine; Referring Provider Urology; Visit Provider Urology
DX: R30.0 Dysuria (principal); R39.89 Other symptoms and signs involving the genitourinary system
CPT/HCPCS: 74178; Q9967

== ENCOUNTER 2023-12-14 10:24 | Outpatient (RCR) | payer MEDICARE, SELFPAY ==
[2023-12-20 12:15] LABS: INR Fingerstick 1.9; Prothrombin Time Fingerstick 21.1 SEC (11.7-14.9)
== END 2023-12-14 18:00 | disposition home or self-care (01) ==
LOC: LAB 10:24
PROVIDERS: PCP Internal Medicine; Referring Provider Physician Assistant Medical; Visit Provider Physician Assistant Medical
DX: Z86.711 Personal history of pulmonary embolism; Z86.718 Personal history of other venous thrombosis and embolism
CPT/HCPCS: 36416; 85610

== ENCOUNTER → 2023-12-21 | Outpatient (CLI) | payer MEDICARE, SELFPAY ==
--- NOTE | 2023-12-21 10:12 | BD_ITS ---
STUDY: DUAL ENERGY X-RAY ABSORPTIOMETRY / DXA REASON FOR EXAM: Female, 78 years old. 733.00OsteoporosisBONE DENSITY REASON FOR EXAM TECHNIQUE: Bone Mineral Density (BMD) measurements of lumbar spine and bilateral hips were obtained. COMPARISON: Comparison is made with prior study October 09, 2019. FINDINGS: Lumbar Spine (L1-L4): g/cm2 (1.053) / T-score (0.4) / Z-score (3.0) Findings are suggestive of normal bone density with a low fracture risk. Left Femur Total: g/cm2 (0.890) / T-score (-0.4) / Z-score (1.7) Left Femoral Neck: g/cm2 (0.729) / T-score (-1.1) / Z-score (1.3) Right Femur Total: g/cm2 (0.878) / T-score (-0.5) / Z-score (1.6) Right Femoral Neck: g/cm2 (0.717) / T-score (-1.2) / Z-score (1.1) The T-Scores on the most recent prior examination were: Lumbar Spine (L1-L4): There has been worsening of bone density since the previous examination. Left Femur Total: which represents an improvement of 5.7%. Right Femur Total: which represents an improvement of 4.7%. BD/Dexa Bone Density Study IMPRESSION: The patient is considered osteopenic as outlined below according to World Tre Organization (WHO) criteria with a low fracture risk. There has been improvement of bone density since the previous examination. Reference Information: The T-score is the number of standard deviations above or below the standard which is normal for young adults at their peak bone mineral density. The World Health Organization (WHO) interprets the T-scores as follows: Above -1 Normal bone density Between -1 and -2.5 Osteopenia Equal to / or below -2.5 Osteoporosis As a practical clinical guideline, osteopenia may be graded as follows: Mild -1 through -1.5 Moderate -1.6 through -2.0 Severe -2.1 through -2.4 The Z-score is the number of standard deviations above or below age-matched controls. A Z-score of less than -1.5 would be considered abnormal. References: 1. NIH Osteoporosis and Related Bone Diseases www osteo.org 2. International Society for Clinical Densitometry www iscd.org 3. National Osteoporosis Foundation www nof.org Electronically Signed: Geovanni Song MD at 12:54 EST ,
== END | disposition home or self-care (01) ==
LOC: OPBD 10:09
PROVIDERS: PCP Internal Medicine; Referring Provider Internal Medicine; Visit Provider Internal Medicine
DX: M80.00XD Age-related osteoporosis with current pathological fracture, unspecified site, subsequent encounter for fracture with routine healing (principal); M81.0 Age-related osteoporosis without current pathological fracture
CPT/HCPCS: 77080

== ENCOUNTER 2024-01-04 14:18 | Outpatient (RCR) | payer MEDICARE, SELFPAY ==
[2024-01-04 14:27] LABS: INR Fingerstick 2.8; Prothrombin Time Fingerstick 29.2 SEC (11.7-14.9)
== END 2024-01-20 18:00 | disposition home or self-care (01) ==
LOC: LAB 14:18
PROVIDERS: PCP Internal Medicine; Referring Provider Physician Assistant Medical; Visit Provider Physician Assistant Medical
DX: Z79.01 Long term (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 (principal); Z86.711 Personal history of pulmonary embolism; I82.409 Acute embolism and thrombosis of unspecified deep veins of unspecified lower extremity; Z86.718 Personal history of other venous thrombosis and embolism
CPT/HCPCS: 36416; 85610

== ENCOUNTER 2024-03-21 13:48 | Outpatient (RCR) | payer MEDICARE, SELFPAY ==
[2024-02-28 13:17] LABS: INR Fingerstick 3.1; Prothrombin Time Fingerstick 32.1 SEC (11.7-14.9)
[2024-03-21 13:58] LABS: INR Fingerstick 2.3
== END 2024-03-22 18:00 | disposition home or self-care (01) ==
LOC: LAB 13:48
PROVIDERS: PCP Internal Medicine; Referring Provider Physician Assistant Medical; Visit Provider Physician Assistant Medical
DX: Z79.01 Long term (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 (principal); Z86.711 Personal history of pulmonary embolism; Z86.718 Personal history of other venous thrombosis and embolism
CPT/HCPCS: 36416; 85610

== ENCOUNTER → 2024-04-03 | Outpatient (CLI) | payer MEDICARE, SELFPAY ==
[2024-04-03 12:18] LABS: Albumin, Serum 3.4 g/dL (3.2-5.0); BUN 31 mg/dL (7-18); BUN/Creat Ratio 21.8 RATIO (10-20); Calcium,Total 9.3 mg/dL (8.5-10.1); Chloride 107 mmol/L (98-107); Creatinine, Serum 1.42 mg/dL (0.55-1.02); EST Glomerular Filtration Rate 38 mL/min (>60); Est Glom Filt Rate - Afr Amer 46 mL/min (>60); Glucose 152 mg/dL (74-106); Phosphorus 2.3 mg/dL (2.5-4.9); Potassium 4.2 mmol/L (3.5-5.1); Sodium Level 140 mmol/L (136-145)
== END | disposition home or self-care (01) ==
LOC: LAB 10:47
PROVIDERS: PCP Internal Medicine; Referring Provider Internal Medicine Nephrology; Visit Provider Internal Medicine Nephrology
DX: N18.32 Chronic kidney disease, stage 3b (principal)
CPT/HCPCS: 36415; 80069

== ENCOUNTER 2024-04-26 14:09 | Outpatient (RCR) | payer MEDICARE, SELFPAY ==
[2024-04-30 09:24] LABS: INR Fingerstick 2.5; Prothrombin Time Fingerstick 26.5 SEC (11.7-14.9)
== END 2024-04-26 18:00 | disposition home or self-care (01) ==
LOC: LAB 14:09
PROVIDERS: PCP Internal Medicine; Referring Provider Physician Assistant Medical; Visit Provider Physician Assistant Medical
DX: Z79.01 Long term (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 (principal); Z86.711 Personal history of pulmonary embolism; I82.409 Acute embolism and thrombosis of unspecified deep veins of unspecified lower extremity; Z86.718 Personal history of other venous thrombosis and embolism
CPT/HCPCS: 36416; 85610

== ENCOUNTER 2024-05-24 13:06 | Outpatient (RCR) | payer MEDICARE, SELFPAY ==
[2024-05-24 13:17] LABS: INR Fingerstick 2.7; Prothrombin Time Fingerstick 28.1 SEC (11.7-14.9)
== END 2024-06-19 18:00 | disposition home or self-care (01) ==
LOC: LAB 13:06
PROVIDERS: PCP Internal Medicine; Referring Provider Physician Assistant Medical; Visit Provider Physician Assistant Medical
DX: Z79.01 Long term (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 (principal); Z86.711 Personal history of pulmonary embolism; I82.409 Acute embolism and thrombosis of unspecified deep veins of unspecified lower extremity; Z86.718 Personal history of other venous thrombosis and embolism
CPT/HCPCS: 36416; 85610

== ENCOUNTER 2024-05-24 13:08 | Outpatient (CLI) | payer MEDICARE, SELFPAY ==
--- NOTE | 2024-05-24 13:36 | ECHOD_ITS ---
Reason For Study Reason For Study: Murmur Procedure This was a 2D Doppler, Color Flow transthoracic echocardiogram. The study was technically difficult. Exam performed in department. Left Ventricle Normal LV size. Mild concentric left ventricular hypertrophy. The left ventricular ejection fraction is 45 %. Stage 1 diastolic dysfunction. No regional wall motion abnormalities noted. Right Ventricle Normal RV size. Normal systolic function. Atria Normal left atrium. Normal right atrium. Mitral Valve Bileaflet diffuse mitral valve thickening. There is mild to moderate mitral annular calcification. Mild-Moderate (1-2+) eccentric mitral valve insufficiency. Tricuspid Valve Normal tricuspid valve. Mild (1+) tricuspid valve insufficiency. Pulmonary artery systolic pressure is 36 mmHg. Aortic Valve Trisinus/trileaflet aortic valve. Moderate focal aortic valve calcification. Peak aortic valve gradient 72 mmHg. Mean aortic valve gradient 39 mmHg. Moderate to severe aortic stenosis. Pulmonic Valve Normal pulmonic valve. Great Vessels Normal aortic root. The pulmonary artery is normal size. Normal inferior vena cava. Pericardium/Pleural No pericardial effusion. Medication NO DEFINITY, LEFT NEPHRECTOMY, PARTIAL RIGHT NEPHRECTOMY. MMode/2D Measurements & Calculations LVIDd: 4.4 cm IVSd: 1.4 cm LVOT diam: 2.0 cm LVIDs: 3.6 cm LVPWd: 1.2 cm RVDd: 3.7 cm FS: 18.9 % LVOT area: 3.3 cm2 Ao root diam: 3.3 cm LAV(MOD-bp): 52.4 ml LVAd ap4: 27.1 cm2 LAV(MOD-bp) Indexed: 31.4 ml/m2 LVLd ap4: 8.3 cm LAV(MOD-sp2): 61.9 ml EDV(MOD-sp4): 68.5 ml LAV(MOD-sp4): 45.3 ml EDV(sp4-el): 74.9 ml LVAs ap4: 20.0 cm2 LVLs ap4: 7.4 cm ESV(MOD-sp4): 42.8 ml ESV(sp4-el): 46.1 ml EF(MOD-sp4): 37.5 % EF(sp4-el): 38.5 % SV(MOD-sp4): 25.7 ml SV(sp4-el): 28.8 ml Ao sinus diam: 3.2 cm SI(MOD-sp4): 15.4 ml/m2 Ao ST Junction: 2.4 cm Aortic Valve Planimetry: 0.61 cm2 LA A4 area: 17.5 cm2 LA dimension(2D): 4.5 cm RA A4 area: 15.8 cm2 Time Measurements MV dec time: 0.12 sec Doppler Measurements & Calculations MV E max henry: 48.3 cm/sec Lat Peak E' Henry: 5.3 cm/sec Med Peak E' Henry: 5.6 cm/sec MV A max henry: 119.9 cm/sec E/E' lat: 9.2 E/E' med: 8.6 MV E/A: 0.40 MV V2 max: 153.0 cm/sec MV P1/2t max henry: 69.4 cm/sec Ao V2 max: 425.0 cm/sec MV max P.4 mmHg MV P1/2t: 50.5 msec Ao max P.7 mmHg MV V2 mean: 69.3 cm/sec MV dec slope: 402.7 cm/sec2 Ao V2 mean: 289.0 cm/sec MV mean P.6 mmHg Ao mean P.8 mmHg MV V2 VTI: 19.9 cm MVA(P1/2t): 4.4 cm2 Ao V2 VTI: 79.6 cm MVA(VTI): 1.9 cm2 AV (velocity ratio): 0.15 OMID(I,D): 0.48 cm2 OMID(V,D): 0.44 cm2 LV V1 max: 57.5 cm/sec MR max henry: 583.7 cm/sec SV(LVOT): 38.4 ml LV V1 max P.4 mmHg MR max P.4 mmHg LV V1 mean P.72 mmHg MR mean henry: 447.8 cm/sec LV V1 mean: 38.5 cm/sec MR mean P.4 mmHg LV V1 VTI: 11.8 cm MR VTI: 177.2 cm PA V2 max: 101.5 cm/sec TR max henry: 280.4 cm/sec TR max P.5 mmHg ECHO/Echo Complete Interpretation Summary Normal LV size. The left ventricular ejection fraction is 45 %. There is mild to moderate mitral annular calcification. Mild-Moderate (1-2+) eccentric mitral valve insufficiency. Stage 1 diastolic dysfunction. Mild concentric left ventricular hypertrophy. Moderate focal aortic valve calcification. Mean aortic valve gradient 39 mmHg. Moderate to severe aortic stenosis. Compared to the previous the aortic stenosis is worse. Ordering Physician: Tucker Reyes Referring Physician: Tucker Reyes Performed By: Cali Phillips RCS
== END 2024-05-24 23:59 | disposition home or self-care (01) ==
PROVIDERS: PCP Internal Medicine; Referring Provider Student in an Organized Health Care Education/Training Program; Visit Provider Student in an Organized Health Care Education/Training Program
DX: I35.0 Nonrheumatic aortic (valve) stenosis (principal); Z86.711 Personal history of pulmonary embolism; Z86.718 Personal history of other venous thrombosis and embolism; Z79.01 Long term (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
CPT/HCPCS: 36416; 85610; 93306

== ENCOUNTER 2024-06-21 09:21 | Outpatient (RCR) | payer MEDICARE, SELFPAY ==
[2024-06-21 09:28] LABS: Prothrombin Time Fingerstick 22.3 SEC (11.7-14.9)
== END 2024-06-21 18:00 | disposition home or self-care (01) ==
LOC: LAB 09:21
PROVIDERS: PCP Internal Medicine; Referring Provider Physician Assistant Medical; Visit Provider Physician Assistant Medical
DX: Z79.01 Long term (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 (principal); Z86.711 Personal history of pulmonary embolism; I82.409 Acute embolism and thrombosis of unspecified deep veins of unspecified lower extremity
CPT/HCPCS: 36416; 85610

== ENCOUNTER 2024-07-03 10:47 | Outpatient (CLI) | payer MEDICARE, SELFPAY ==
--- NOTE | 2024-07-03 10:49 | ECHOTEE_ITS ---
Reason For Study : AORTIC STENOSIS Medication TOMI probe 6VT-D (SN [id number]) passed with minimal difficulty. No complications were noted. Cetacaine Topical Alanson given X3 orally. Left Ventricle Normal LV size. Moderate concentric left ventricular hypertrophy. Left ventricular systolic function is lower limits of normal. The estimated ejection fraction is 47 %. No regional wall motion abnormalities noted. Right Ventricle Normal RV size. Normal systolic function. Atria Bubble contrast study negative for right to left interatrial shunt. Normal left atrium. Normal right atrium. Mitral Valve Bileaflet diffuse mitral valve thickening. Moderate (2+) eccentric mitral valve insufficiency. Tricuspid Valve Normal tricuspid valve. Mild tricuspid valve insufficiency. Aortic Valve Trisinus/trileaflet aortic valve. Moderate diffuse aortic valve calcification. Moderate to severe aortic stenosis. Pulmonic Valve Normal pulmonic valve. Vessels Mild atherosclerosis of the ascending aorta. Mild atherosclerosis of the descending aorta. The pulmonary artery is normal size. Pulmonary venous flow normal. Pericardium No pericardial effusion. MMode/2D Measurements & Calculations Ao root diam: 3.5 cm Aortic Valve Planimetry: 0.52 cm2 ECHO/Echo Transesophageal (TOMI) Interpretation Summary Normal LV size. Left ventricular systolic function is lower limits of normal. The estimated ejection fraction is 47 %. Moderate diffuse aortic valve calcification. Moderate to severe aortic stenosis. Moderate (2+) eccentric mitral valve insufficiency. Moderate concentric left ventricular hypertrophy. Ordering Physician: Tucker Reyes Referring Physician: Amos Fulton Performed By: Oksana Perales, RDCS, RVT
== END 2024-07-03 13:30 | disposition home or self-care (01) ==
LOC: CVS 10:48
PROVIDERS: PCP Internal Medicine; Referring Provider Student in an Organized Health Care Education/Training Program; Visit Provider Student in an Organized Health Care Education/Training Program
DX: I35.0 Nonrheumatic aortic (valve) stenosis (principal)
CPT/HCPCS: 93312; 93320; 93325; A4216

== ENCOUNTER 2024-08-05 06:48 | Day surgery (SDC) | payer MEDICARE, SELFPAY ==
--- NOTE | 2024-07-23 08:41 | RAD_ITS ---
PROCEDURE: CHEST PA AND LATERAL 07/23/2024 REASON FOR EXAM: AORTIC VALVE STENOSIS-CARDIAC CATH TECHNIQUE: Frontal and lateral views of the chest. COMPARISON: 05/23/2023 FINDINGS: No focal consolidations. Mild pulmonary vascular congestion. Mild cardiomegaly. Atherosclerotic aortic arch. No pleural effusion or pneumothorax. Minimal multilevel compression deformities of the thoracic spine. RAD/Chest PA and Lateral IMPRESSION: No focal consolidations. Mild pulmonary vascular congestion. Mild cardiomegaly . Reading Location: [id number]
[2024-07-23 10:04] LABS: Absolute Lymphocyte Count 1.15 X10^3/uL (0.83-4.51); Absolute Neutrophil Count 8.1 X10^3/uL (2.0-7.7); Basophil# 0.04 X10^3/uL; Basophil% 0.4 % (0-1); Eosinophil# 0.09 X10^3/uL; Eosinophils% 0.9 % (0-5); Hematocrit 50.1 % (37-47); Hemoglobin 16.3 g/dL (12.0-15.0); Lymphocyte # 1.15 X10^3/ul (0.83-4.51); Mean Corp Hgb Conc 32.5 g/dL (32-36); Mean Corpuscular Hgb 29.9 pg (27.0-32.0); Mean Corpuscular Volume 91.9 fL (81-99); Mean Platelet Vol. 11.8 fl (6.2-12.0); Monocyte# 0.94 X10^3/uL; NRBC Flagged by Analyzer 0 % (0-5); Neutrophil # 8.14 X10^3/uL (2.7-7.7); Neutrophil % 77.8 % (47-70); Platelet Count 222 K/mm3 (150-450); RBC Distribution Width CV 15.7 % (11.6-14.6); RBC Distribution Width SD 52.5 fl (35.1-43.9); Red Blood Count 5.45 M/mm3 (4.2-5.4); White Blood Count 10.5 K/mm3 (4.4-11.0)
[2024-07-23 10:21] LABS: International Normalized Ratio 2.4; Prothrombin Time (Protime)PT. 26.4 SECONDS (11.7-14.9)
[2024-07-23 10:22] LABS: Partial Thromboplast Time 33.9 Seconds (24.1-36.2)
[2024-07-23 11:19] LABS: Anion Gap 12 (5-15); BUN 45 mg/dL (4-19); BUN/Creat Ratio 28.1 RATIO (10-20); Calcium,Total 10.4 mg/dL (7.6-11.0); Carbon Dioxide 21.6 mmol/L (21.0-32.0); Chloride 108 mmol/L (98-108); EST Glomerular Filtration Rate 32 (>60); Glucose 93 mg/dL (70-99); Potassium 5.1 mmol/L (3.3-5.1); Sodium Level 142 mmol/L (133-145)
[2024-08-01 16:17] VITALS: BMI 26.6
[2024-08-05 07:40] LABS: Anion Gap 12 (5-15); BUN 37 mg/dL (4-19); BUN/Creat Ratio 23.7 RATIO (10-20); Calcium,Total 9.8 mg/dL (7.6-11.0); Chloride 111 mmol/L (98-108); Creatinine, Serum 1.55 mg/dL (0.70-1.20); EST Glomerular Filtration Rate 33 (>60); Estimated Creatinine Clearance 25.41 ml/min (50-250); Glucose 96 mg/dL (70-99); Potassium 4.5 mmol/L (3.3-5.1); Sodium Level 140 mmol/L (133-145)
[2024-08-05 07:48] LABS: Prothrombin Time (Protime)PT. 13.1 SECONDS (11.7-14.9)
--- NOTE | 2024-09-30 09:45 | CL.D_ITS ---
Patient Name: VALENTIN WEINSTEIN Study Date: 08/05/2024 Performing: Jordan Marte MD Ht: 62 inches 157.48 cm : 1945 Wt: 145.99 lbs 66.22 kg Age: 79 Gender: female BSA: 1.67 PROCEDURE(S) PERFORMED [id number]-([id number])[facility] CLINICAL PROFILE AND INDICATIONS Indications: Valvular Disease Heart Failure: None Stress/Imaging Stress/Image Study Performed: No CAD Presentations: Symptom unlikely to be ischemic. CONCLUSIONS Normal coronary arteries Normal LV size, wall motion,and systolic function Aortic Valve Stenosis- Moderate to Severe RECOMMENDATIONS Consider Valve surgery TAVR and MR surgery DESCRIPTION OF PROCEDURE The patient arrived to the procedure lab. The risks and benefits of the procedure as well as a full description of our services here and current unavailability of surgical backup were fully explained to the patient and/or their significant other prior to the catheterization. The Timeout was completed, verifying the correct patient and procedure. The patient's procedural site was prepped and draped in the usual fashion. Local anesthetic was given subcutaneously to right radial region with Lidocaine 2%. Using a modified Seldinger technique, arterial access was obtained via the right radial artery, a 5Fr sheath was inserted. Left Coronary Artery selective angiography was performed in multiple views using a 5 Fr. 4.0 [place] catheter. Right Coronary Artery selective angiography was then performed in multiple views using a 5 Fr. 4.0 [place] catheter.The arterial sheath was pulled and a TR Band was applied for hemostasis CORONARY ANGIOGRAPHY DOMINANCE: Right Dominant LEFT HEART ASSESSMENT Left Ventricular Ejection Fraction: by Echo 60 % Normal LV wall motion LEFT MAIN: Angiographically normal LEFT ANTERIOR DESCENDING ARTERY: Mild luminal irregularities CIRCUMFLEX ARTERY: Mild luminal irregularities RIGHT CORONARY ARTERY: Mild luminal irregularities VALVE FINDINGS: Moderate to Severe Mitral Valve Insufficiency - Grade 2 COMPLICATIONS No Complications PROCEDURE MEDICATIONS Versed 1 mg IV Fentanyl 50 mcg IV Oxygen: 2 L/min via nasal cannula Baby Aspirin (81mg) 1 Tabs PO @ 08/05/2024 07:26:19 Heparin given IA as radial cocktail. 08/05/2024 08:31:56 Verapamil 2.5mg, 200 mcgs, 2000 units of Heparin given IA as radial cocktail. 08/05/2024 08:31:56 SUMMARY OF HEMODYNAMIC DATA Time AIR REST ECG 07:31:06 AO 117/65 (85) SA 08:44:13 AO 112/70 (87) 08:44:38 Signed By Jordan Marte MD On 08/05/2024 08:56:45 Jordan Marte MD
== END 2024-08-05 10:45 | disposition home or self-care (01) ==
PROVIDERS: PCP Internal Medicine; Referring Provider Internal Medicine Cardiovascular Disease; Visit Provider Internal Medicine Cardiovascular Disease
DX: I35.0 Nonrheumatic aortic (valve) stenosis (principal); N18.30 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, stage 3 unspecified; I34.1 Nonrheumatic mitral (valve) prolapse; I34.0 Nonrheumatic mitral (valve) insufficiency; I25.2 Old myocardial infarction; I12.9 Hypertensive chronic kidney disease with stage 1 through stage 4 chronic kidney disease, or unspecified chronic kidney disease; E78.5 Hyperlipidemia, unspecified; M85.80 Other specified disorders of bone density and structure, unspecified site; Z90.5 Acquired absence of kidney; Z79.01 Long term (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; Z85.528 Personal history of other malignant neoplasm of kidney; Z79.899 Other long term (current) drug therapy; Z86.711 Personal history of pulmonary embolism; Z86.718 Personal history of other venous thrombosis and embolism
CPT/HCPCS: 36415; 71046; 80048; 85025; 85610; 85730; 93454; 99152; 99153; Q9967; C1769; C1894

== ENCOUNTER 2024-08-07 15:47 | Inpatient (IN) | payer MEDICARE, SELFPAY ==
[2024-08-07] VITALS (20 sets, daily range): BP systolic 67–123; BP diastolic 53–97; PULSE 29–115; RESP 15–25; TEMP 36.4–37.1; O2SAT 94–100; BMI 27.3; BMI 28.0
--- NOTE | 2024-08-07 16:17 | EKG12_ITS ---
Test Reason : low hr Blood Pressure : */* mmHG Vent. Rate : 116 BPM Atrial Rate : 116 BPM P-R Int : 130 ms QRS Dur : 80 ms QT Int : 314 ms P-R-T Axes : 39 -10 104 degrees QTcB Int : 436 ms Sinus tachycardia Biatrial enlargement Left ventricular hypertrophy with repolarization abnormality ( R in aVL ) Abnormal ECG No previous ECGs available Confirmed by FIONA ZELAYA, LARISA ([id number]), manager editorial BRANDIN MCCABE ([id number]) on 08/13/2024 2:03:41 PM Referred By: Nixon Silverio Confirmed By: LARISA JAIMES MD
[2024-08-07] MEDS: 0.9% Normal Saline (1000mL) 1,000 ML 1000 ML IV ×2 (16:20→19:57)
[2024-08-07 17:06] LABS: Absolute Lymphocyte Count 2.26 X10^3/uL (0.83-4.51); Absolute Neutrophil Count 10.8 X10^3/uL (2.0-7.7); Basophil# 0.14 X10^3/uL; Basophil% 0.9 % (0-1); Eosinophil# 0.16 X10^3/uL; Eosinophils% 1.1 % (0-5); Hematocrit 46.5 % (37-47); Hemoglobin 15.2 g/dL (12.0-15.0); Lymphocyte # 2.26 X10^3/ul (0.83-4.51); Mean Corp Hgb Conc 32.7 g/dL (32-36); Mean Corpuscular Hgb 29.7 pg (27.0-32.0); Mean Platelet Vol. 11.9 fl (6.2-12.0); Monocyte# 1.46 X10^3/uL; Monocyte% 9.7 % (0-10); NRBC Flagged by Analyzer 0 % (0-5); Neutrophil # 10.82 X10^3/uL (2.7-7.7); Neutrophil % 71.7 % (47-70); Platelet Count 193 K/mm3 (150-450); RBC Distribution Width CV 15.6 % (11.6-14.6); RBC Distribution Width SD 52.4 fl (35.1-43.9); Red Blood Count 5.11 M/mm3 (4.2-5.4); White Blood Count 15.1 K/mm3 (4.4-11.0)
[2024-08-07 17:13] LABS: ALB/GLOB Ratio 1.8 RATIO (0.9-2.4); AST(SGOT) 27 U/L (<=31); Alanine Aminotransfer ALT/SGPT 20 U/L (<=34); Albumin, Serum 4.1 g/dL (3.4-4.8); Alkaline Phosphatase 102 U/L (35-104); Anion Gap 15 (5-15); BUN 43 mg/dL (4-19); BUN/Creat Ratio 27.3 RATIO (10-20); Calcium,Total 9.9 mg/dL (7.6-11.0); Carbon Dioxide 14.6 mmol/L (21.0-32.0); Chloride 107 mmol/L (98-108); Creatinine, Serum 1.59 mg/dL (0.70-1.20); EST Glomerular Filtration Rate 32 (>60); Estimated Creatinine Clearance 25.08 ml/min (50-250); Globulin 2.2 g/dL (2.2-4.2); Glucose 139 mg/dL (70-99); Potassium 4.5 mmol/L (3.3-5.1); Protein, Total 6.3 g/dL (5.9-8.4); Sodium Level 137 mmol/L (133-145); Total Bilirubin 0.52 mg/dL (0.00-1.30)
[2024-08-07 17:36] LABS: Troponin T High Sensitivity 60 ng/L (<=14)
--- NOTE | 2024-08-07 18:12 | EDS_ITS ---
HPI History of Present Illness Chief Complaint: Hypotension Detail of Chief Complaint: Patient advised to come to the ER by for low heart rate Informant: patient Onset/Context/Timing Onset: Today Context: Sudden Onset Timing: Intermittent Quality: Patient complains of low heart rate and also orthostatic lightheadedness. Location: Cardiovascular Current Severity: Varies Maximum Severity: Orthostatic lightheadedness Worsened by: Upright position Relieved by: Better supine Associated Symptoms Associated Symptoms: Weakness fatigue Narrative Narrative: Patient had a cardiac catheterization earlier this week. Left ventricular ejection fraction was 60%. Normal LV wall motion. Left main angiographically normal. Left anterior descending artery minimal luminal irregularities. Circumflex artery revealed mild luminal irregularities. Right coronary revealed mild luminal irregularities. Valve findings revealed moderate to severe AAS and mitral valve insufficiency grade 2. Patient states she was sent in because of low heart rate. Vital signs in triage revealed a heart rate of 29. Patient's blood pressure when she was brought back to examination room was very low. She states she does not feel well. She denies headache, double vision blurred vision loss of vision. Eyes rock decreased hearing. No trouble with speech or swallowing. She denies chest discomfort, pressure, tightness or heaviness. She denies dyspnea, dyspnea on exertion or orthopnea. Patient denies abdominal pain. She denies nausea, vomiting or diarrhea. She denies black or maroon-colored stool. She states her stool is very dark. She does complain of frequency and pressure sensation in the suprapubic area. She denies dysuria or hematuria. Prior similar symptoms: No Recent Illness/Hospitalization: Yes (Cardiac catheterization earlier this week) [facility] Medical History MVP (mitral valve prolapse) Aortic stenosis Hypokalemia Elevated serum creatinine Acute prerenal azotemia History of kidney cancer 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 Hypercalcemia Frequent falls Closed head injury (03/20/20) Hypoglycemia (03/20/20) Acute electrocardiogram changes Atopic dermatitis Osteopenia determined by x-ray History of pulmonary embolism senior living (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 Orthostatic hypotension 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, stage 3 [place] disease Essential (primary) hypertension Hyperlipidemia Recurrent deep vein thrombosis (DVT) History of non-ST elevation myocardial infarction (NSTEMI) (04/2009) Pyelonephritis Cystocele with rectocele History of DVT (deep vein thrombosis) Hypotension Home Medications ?Medication ?Instructions ?Recorded ?Last Taken ?Type acetaminophen 500 mg tablet 1,000 mg (2 x 500 mg) PO Q 6H PRN 04/08/20 04/07/20 21:32 Rx Pain Score 1-10 denosumab 60 mg/mL subcutaneous 60 mg subcut [id number] #1 mL 11/24/22 Unknown Rx syringe (Prolia) hydrocortisone 10 mg tablet 20 mg (2 x 10 mg) PO DAILY @0600 11/24/22 08/05/24 Rx #90 tabs nitroglycerin 0.4 mg sublingual 0.4 mg sublingual Q5-1 5M PRN 07/26/23 Unknown Rx tablet Cardiac/Chest Pain #25 tabs warfarin 2.5 mg tablet 2.5 mg PO DAILY@1700 #120 ta bs 04/22/24 07/31/24 Rx methenamine hippurate 1 gram tablet 1 g PO QHS 5 Unknown History lisinopril 5 mg tablet 5 mg PO QDAY #90 tabs 08/05/24 Rx simvastatin 20 mg tablet 20 mg PO QHS #90 tabs Unknown Rx ascorbic acid (vitamin C) 1,000 mg 1,000 mg PO QHS Unknown History tablet Allergy/AdvReac Type Severity Reaction Status Date / Time ciprofloxacin (From Cipro) Allergy Rash Verified 08/07/24 15:53 Penicillins Allergy Rash Verified 08/07/24 15:53 Family History Father CVA (cerebral vascular accident) Mother Myocardial infarction, Onset Age: 87 Other 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 Surgical History History of left heart catheterization (04/2009) History of left nephrectomy (2000) History of total abdominal hysterectomy History of bladder repair surgery H/O partial nephrectomy (2009) H/O total cystectomy Social History Smoking Status: Never smoker alcohol intake: never substance use type: does not use caffeine: Yes what type of physical activity do you participate in: walking seatbelt use: always do you feel safe at home: Yes additional social history: [employer]- Retired patient is retired ROS ROS ED Constitutional Constitutional ED: Denies chills, fever(s), subjective, sweats or weight loss Eyes Eyes: Denies blurry vision, change in vision or diplopia ENT ENT ED: Denies ear pain, rhinorrhea or sore throat Cardiovascular Cardiovascular: Reports other Details: Orthostatic lightheadedness ; Denies chest pain, orthopnea, palpitations, paroxysmal nocturnal dyspnea or racing heartbeat Respiratory/Chest Respiratory/Chest: Denies cough, dyspnea, dyspnea on exertion, orthopnea or paroxysmal nocturnal dyspnea Gastrointestinal Gastrointestinal: Denies abdominal pain, constipation, diarrhea, melena or vomiting Genitourinary Genitourinary ED: Reports other Details: Urgency pressure sensation in the suprapubic area ; Denies dysuria, hematuria or urinary frequency Musculoskeletal Musculoskeletal: Denies arthralgias, back pain or myalgias Integumentary Denies Abrasions or rash Neurologic Neurologic: Reports weakness; Denies headache(s) or paresthesias Endocrine Endocrinology: Denies cold intolerance or heat intolerance Hematologic/Lymphatic Hematologic/Lymphatic: Reports systems reviewed and no addt'l complaints, except as documented EXAM Physical Exam Const Vital Signs: 08/07/24 15:49 08/07/24 16:00 08/07/24 16:01 Temperature 98 F Temperature Source Oral Pulse Rate 29 L 115 H Respiratory Rate 16 17 Respiratory Effort Normal Respiratory Pattern Normal Blood Pressure 114/92 H Blood Pressure Mean 99 Pulse Ox 98 97 Oxygen Delivery Method Room Air Room Air 08/07/24 16:02 08/07/24 16:04 08/07/24 16:22 Temperature Temperature Source Pulse Rate 93 Respiratory Rate 22 H Respiratory Effort Respiratory Pattern Blood Pressure 67/56 L 72/53 L 99/63 Blood Pressure Mean 59 59 75 Pulse Ox 96 Oxygen Delivery Method Room Air 08/07/24 16:30 08/07/24 17:00 08/07/24 17:30 Temperature 98.4 F Temperature Source Oral Pulse Rate 102 H 99 103 H Respiratory Rate 15 24 H 20 H Respiratory Effort Respiratory Pattern Blood Pressure 97/84 H 110/76 110/76 Blood Pressure Mean 88 87 87 Pulse Ox 94 100 100 Oxygen Delivery Method Room Air Room Air Room Air 08/07/24 18:00 Temperature Temperature Source Pulse Rate 101 H Respiratory Rate 18 Respiratory Effort Respiratory Pattern Blood Pressure 109/77 Blood Pressure Mean 87 Pulse Ox 98 Oxygen Delivery Method Room Air Heart rate at 1549 was 29. Patient had blood pressure readings of 67/56 at 1602 and 72/53 at 1604. Patient does not appear well. Positive well nourished and well developed; Negative for obese, cachectic or contractures General Appearance ED: well developed; Negative for cachectic, contractures, cyanotic, diaphoretic or pallor Nutritional Appearance: Negative for cachectic or obese HEENT Reports dry mucous membranes HEENT Narrative: Head is atraumatic normocephalic. Ears normal. Nares patent. Posterior pharynx is normal. Mouth ED: Yes dry mucous membranes Mouth: dry mucous membranes Eyes PERRL and EOMs intact bilaterally General Eye ED: Negative for pale conjunctiva or scleral icterus Neck no lymphadenopathy, supple and no JVD Chest Wall inspection of chest normal and palpation of chest normal Resp normal respiratory effort and clear to auscultation bilaterally Cardio regular rate, regular rhythm, S1 normal heart sound and S2 normal heart sound; Negative for no murmurs GI normal to inspection, nondistended, normoactive bowel sounds, non-tender and non-distended; Negative for hepatosplenomegaly or no masses GI Narrative: Patient has evidence of external hemorrhoids. There is no active bleeding. Stool is light brown in color. There is no palpable masses on rectal exam. Back/Spine no CVA tenderness Thoracic Spine / Upper Back: Negative for thoracic spinal tenderness Lumbar Spine / Lower Back: Negative for lumbar spinal tenderness Extremity normal to inspection Extremity Narrative: Patient does have a hematoma cath site right wrist. Neuro oriented x3 and CN's II-XII intact bilaterally Sensorium / Orientation: alert Psych mental status grossly normal Skin no rashes or lesions noted, no wounds and skin turgor normal General Skin Exam: Negative for jaundice or pallor Sepsis Attestation Sepsis Alert: Yes Sepsis Attestation: Agree w/Sepsis Date exam was performed: 08/07/24 Time exam was performed: 19:30 Possible Source of Sepsis: Genitourinary Sepsis Organ Dysfunction Criteria Present: SBP < 90 mmHg or MAP < 65 mmHg Fluid Resuscitation Fluid resuscitation indicated?: Yes Fluid Resuscitation ordered: 30 ml/kg fluid bolus ordered Amount of fluid ordered: 2,000 (Patient initially responded to 1 L. Second liter was ordered. Also has [place]'s disease and may be contributory. Will give stress dose of Solu-Cortef.) MDM MDM MDM Narrative Medical decision making narrative: Since patient is hypotensive reported dark stool will obtain CBC to assess H&H. Jarrell was placed for accurate I's and O's and fluid bolus was ordered. Because of her urinary pressure sensation a UA was ordered which can be obtained when the Jarrell is placed. BMP was obtained to assess electrolytes, renal function and anion gap. Troponin was obtained as well. Patient responded to the fluid bolus. History & Record Review Discussion w/independent historian: Patient Lab Data Attestation: I reviewed the patient's lab results. Lab results narrative: White count is elevated 15.1 thousand. There is a slight shift with no bandemia. H&H is unremarkable. Basic metabolic panel reveals a CO2 of 14.6 with an anion gap of 15. BUN and creatinine are elevated at 43 and 1.59 with an estimated GFR of 32. BUN to creatinine ratio was 27:1. Glucose is slightly elevated 139. First troponin is elevated at 60. Uncertain what this means in light of her recent cath report. Labs: Laboratory Results - last 24 hr 08/07/24 08/07/24 16:06 18:06 WBC 15.1 H RBC 5.11 Hgb 15.2 H Hct 46.5 MCV 91.0 MCH 29.7 MCHC 32.7 RDW Std Deviation 52.4 H RDW Coeff of Slava 15.6 H Plt Count 193 MPV 11.9 Immature Gran % (Auto) 1.600 H Neut % (Auto) 71.7 H Lymph % (Auto) 15.0 L [place] % (Auto) 9.7 Eos % (Auto) 1.1 Baso % (Auto) 0.9 Absolute Neuts (auto) 10.8 H Absolute Lymphs (auto) 2.26 Nucleated RBC % 0 Sodium 137 Potassium 4.5 Chloride 107 Carbon Dioxide 14.6 L Anion Gap 15 BUN 43 H Creatinine 1.59 H Estim Creat Clear Calc 25.08 L Est GFR (MDRD) Non-Af 32 L BUN/Creatinine Ratio 27.3 H Glucose 139 H Calcium 9.9 Total Bilirubin 0.52 AST 27 ALT 20 Alkaline Phosphatase 102 Troponin T High Sens 60 H* Troponin T Hi Sens 2 Hr 55 H* Total Protein 6.3 Albumin 4.1 Globulin 2.2 Albumin/Globulin Ratio 1.8 Urine Color Yellow Urine Clarity Clear Urine pH 6.0 Ur Specific [place] 1.015 Urine Protein 30 H Urine Glucose (UA) Normal Urine Ketones Negative Urine Occult Blood 150 H Urine Nitrite Positive H Urine Bilirubin Negative Urine Urobilinogen Normal Ur Leukocyte Esterase 25 H Urine RBC 0-5 SEEN Urine WBC 5-10 SEEN Ur Squamous Epith Cells 0 SEEN Urine Bacteria 3+ Urine Mucus 0 SEEN Urine is consistent with infection. Patient's having a downward trend of her blood pressure. Will administer additional liter of normal saline. EKG Initial EKG: Attestation: I personally reviewed and interpreted this EKG as follows: Interpretation: Sinus Tachycardia (Rate is 116. DE interval is 130 ms per QRS duration 80 ms. QT duration. 14 ms. [place] is normal. Patient has evidence of atrial enlargement. There is also evidence of LVH. There is no acute ischemic changes.) Management Discussion w/another healthcare provider: Hospitalist and Traffic Representative (Her calendar control clerk blood bank was contacted since he sent her in.) Treatment and Re-Evaluation :: Suspect patient is hypotensive due to urosepsis. Since she only has a rash to penicillin she was treated with 2 g of Rocephin. Since her blood pressure is trending downwards additional liter of normal saline was ordered. Critical Care Time Critical Care Time: Yes Critical care time (excluding procedures): 30-74 minutes (33), Including time spent: (History, physical, documentation, review of prior records, independent rotation laboratory results), Discussing w/Patient &/or Family/Remote Sensing Engineer, Discussing w/Consultants (Dr. 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) Discharge Plan Triage Chief Complaint: Hypotension ED Provider: Obinna Frye Dx/Rx/DC Orders Clinical Impression: Complicated urinary tract infection, [place]'s disease, 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, stage 3, Aortic stenosis, severe, Acute hypotension, Metabolic acidosis, Elevated troponin, senior living (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 Prescriptions: No Action hydrocortisone 10 mg tablet 20 mg PO DAILY@0600 Qty: 90 6RF Rx Instructions: 2 tabs qam 1 tab qpm Prolia 60 mg/mL syringe 60 mg subcut [id number] Qty: 1 1RF methenamine hippurate 1 gram tablet 1 g PO QHS nitroglycerin 0.4 mg tablet, sublingual 0.4 mg SUBLINGUAL Q5-15M PRN (Reason: Cardiac/Chest Pain) Qty: 25 3RF lisinopril 5 mg tablet 5 mg PO QDAY Qty: 90 3RF simvastatin 20 mg tablet 20 mg PO QHS Qty: 90 3RF acetaminophen 500 MG tablet 1,000 mg PO Q6H PRN (Reason: Pain Score 1-10) 0RF ascorbic acid (vitamin C) 1,000 mg tablet 1,000 mg PO QHS warfarin 2.5 mg tablet 2.5 mg PO DAILY@1700 Qty: 120 3RF Protocol: Dose Management Condition: Monday Dose/Route: 2.5 mg Instruction: 1 x 2.5 mg tablet Condition: Monday Dose/Route: 5 mg Instruction: 2 x 2.5 mg tablets Condition: Monday Dose/Route: 2.5 mg Instruction: 1 x 2.5 mg tablet Condition: Monday Dose/Route: 2.5 mg Instruction: 1 x 2.5 mg tablet Condition: Dose/Route: 2.5 mg Instruction: 1 x 2.5 mg tablet Condition: Monday Dose/Route: 2.5 mg Instruction: 1 x 2.5 mg tablet Condition: Monday Dose/Route: 2.5 mg Instruction: 1 x 2.5 mg tablet Protocol Text: Adjustment Start Date: Monday06/21/24 INR Value: 2.0 INR Date: 06/21/24 Recheck Date: 07/19/24 Rx Instructions: daily or as directed Primary Care Provider: Amos Fulton Referrals: Amos Fulton MD [Primary Care Provider] - Print Language: Japanese
[2024-08-07 18:24] LABS: Mucous, Urine 0 SEEN /hpf (<or=2+); Squamous Epithelial Cells - UA 0 SEEN /hpf (5-10)
[2024-08-07 18:48] LABS: Troponin T High Sens 2 HR 55 ng/L (<=14)
[2024-08-07 18:58] LABS: Color, Urine Yellow (Yellow); Glucose, Dipstick Normal (Normal); Ketone-Dipstick Negative (Negative); Leukocyte Esterase-Dipstick 25 /ul (Negative); Nitrite-Dipstick Positive (Negative); Occult Blood-Urine 150 /ul (Negative); Protein-Dipstick 30 mg/dl (Negative); Specific Gravity, Urine 1.015 (1.002-1.030); Urine Bilirubin Dipstick Negative (Negative); Urine Clarity Clear (Clear); Urine Urobilinogen Normal (Normal)
[2024-08-07 19:10] LABS: White Blood Cells 5-10 SEEN /hpf (0-5)
[2024-08-07 19:11] LABS: Bacteria 3+ /hpf (None Seen); Red Blood Cells-Urine 0-5 SEEN /hpf (0-5)
--- NOTE | 2024-08-07 19:31 | PCM.HP.STD ---
[facility] - General General Date of Admission: 08/07/24 Date of Service: 08/07/24 Chief Complaint: Hypotension and Bradycardia. 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 Marte on August 05, 2024 with LVEF ~60% and mild luminal irregularities with [id number] plus grade II mitral valve insufficiency who presents to [facility] ER complaining of hypotension and bradycardia. Ms. Peralta reports her symptoms began a few hours prior to arrival when she spontaneously developed severe bradycardia in the ~29 bpm range. She also admits to associated fatigue and malaise along with dark-colored stool with orthostatic lightheadedness plus increased urinary frequency and pressure sensation in the suprapubic region. She states she has been off of her warfarin for 5 days in preparation for her recent LHC with patient recently just having 1 dose yesterday. She denies dysuria, hematuria or similar previous episodes. She also denies related fever, chills, vomiting, diarrhea, constipation, chest pain, palpitations, heart racing, headache or rash. In the ER she was noted to have a UA; positive for evidence of Acute Cystitis; without hematuria with a corresponding Leukocytosis of 15.1K with Left-shift of 1.6% present on admission concerning for Sepsis complicated by elevated BUN/creatinine ratio of 27.3 present on admission suggestive of Dehydration compounded by mildly elevated Troponin T of 60 ng/L present on admission likely due to Acute Cardiac Strain from Severe Bradycardia with Orthostatic Lightheadedness with dark stools on warfarin worrisome for possible GI bleed and she was then admitted to the ICU for ongoing care for a stay that is expected to extend beyond 2 midnights. [facility] Medical History MVP (mitral valve prolapse) Aortic stenosis Hypokalemia Elevated serum creatinine Acute prerenal azotemia History of kidney cancer 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 Hypercalcemia Frequent falls Closed head injury (03/20/20) Hypoglycemia (03/20/20) Acute electrocardiogram changes Atopic dermatitis Osteopenia determined by x-ray History of pulmonary embolism care home (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 Orthostatic hypotension 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, stage 3 D Hanis disease Essential (primary) hypertension Hyperlipidemia Recurrent deep vein thrombosis (DVT) History of non-ST elevation myocardial infarction (NSTEMI) (04/2009) Pyelonephritis Cystocele with rectocele History of DVT (deep vein thrombosis) Hypotension Home Medications ?Medication ?Instructions ?Recorded ?Last Taken ?Type acetaminophen 500 mg tablet 1,000 mg (2 x 500 mg) PO Q6H PRN 04/08/20 04/07/20 21:32 Rx Pain Score 1-10 denosumab 60 mg/mL subcutaneous 60 mg subcut F2PESVMR #1 mL 11/24/22 Unknown Rx syringe (Prolia) hydrocortisone 10 mg tablet 20 mg (2 x 10 mg) PO DAILY@0600 11/24/22 08/05/24 Rx #90 tabs nitroglycerin 0.4 mg sublingual 0.4 mg sublingual Q5-15M PRN 07/26/23 Unknown Rx tablet Cardiac/Chest Pain #25 tabs warfarin 2.5 mg tablet 2.5 mg PO DAILY@1700 #120 tabs 04/22/24 07/31/24 Rx methenamine hippurate 1 gram tablet 1 g PO QHS 04/29/24 Unknown History lisinopril 5 mg tablet 5 mg PO QDAY #90 tabs 07/23/24 08/05/24 Rx simvastatin 20 mg tablet 20 mg PO QHS #90 tabs 07/23/24 Unknown Rx ascorbic acid (vitamin C) 1,000 mg 1,000 mg PO QHS 08/07/24 Unknown History tablet Allergy/AdvReac Type Severity Reaction Status Date / Time ciprofloxacin (From Cipro) Allergy Rash Verified 08/07/24 15:53 Penicillins Allergy Rash Verified 08/07/24 15:53 Family History Father CVA (cerebral vascular accident) Mother Myocardial infarction, Onset Age: 87 Other History of DVT (deep vein thrombosis) care home (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 Surgical History History of left heart catheterization (04/2009) History of left nephrectomy (2000) History of total abdominal hysterectomy History of bladder repair surgery H/O partial nephrectomy (2009) H/O total cystectomy Social History Smoking Status: Never smoker alcohol intake: never substance use type: does not use caffeine: Yes what type of physical activity do you participate in: walking seatbelt use: always do you feel safe at home: Yes additional social history: [employer]- Retired patient is retired ROS ROS Narrative Review of Systems: Constitutional: Patient denies fever or chills. Eyes: Patient denies changes in vision or discharge from eyes. ENT: Patient denies runny nose, sore throat or ear pain. Resp: Patient denies SOB or cough. CV: Patient admits to orthostatic lightheadedness but she denies chest pain, palpitations, heart racing or LE edema. GI: Patient admits to dark stools but she denies abdominal pain, vomiting, diarrhea or constipation. : Patient admits to darkened urine with pain over the suprapubic region as per HPI. She denies dyuria or hematuria. MSK: Patient admits to generalized weakness but she denies arthralgias or myalgias. Skin: Patient denies rash, abscess, wounds or jaundice. Psych: Patient denies symptoms of uncontrolled depression or anxiety. Neuro: Patient admits to generalized weakness but she denies headache or paresthesias. Allergy: Patient denies lip swelling, tongue swelling or urticaria. Hematology: Patient admits to easy bleeding and bruisability on warfarin. Endocrinology: Patient denies heat or cold intolerance. 14 point ROS otherwise negative except for positives noted above in HPI. Vital Signs Vital Signs Vital Signs: 08/07/24 15:49 08/07/24 16:00 08/07/24 16:01 Temperature 98 F Temperature Source Oral Pulse Rate 29 L 115 H Respiratory Rate 16 17 Respiratory Effort Normal Respiratory Pattern Normal Blood Pressure 114/92 H Blood Pressure Mean 99 Pulse Ox 98 97 Oxygen Delivery Method Room Air Room Air 08/07/24 16:02 08/07/24 16:04 08/07/24 16:22 Temperature Temperature Source Pulse Rate 93 Respiratory Rate 22 H Respiratory Effort Respiratory Pattern Blood Pressure 67/56 L 72/53 L 99/63 Blood Pressure Mean 59 59 75 Pulse Ox 96 Oxygen Delivery Method Room Air 08/07/24 16:30 08/07/24 17:00 08/07/24 17:30 Temperature 98.4 F Temperature Source Oral Pulse Rate 102 H 99 103 H Respiratory Rate 15 24 H 20 H Respiratory Effort Respiratory Pattern Blood Pressure 97/84 H 110/76 110/76 Blood Pressure Mean 88 87 87 Pulse Ox 94 100 100 Oxygen Delivery Method Room Air Room Air Room Air 08/07/24 18:00 Temperature Temperature Source Pulse Rate 101 H Respiratory Rate 18 Respiratory Effort Respiratory Pattern Blood Pressure 109/77 Blood Pressure Mean 87 Pulse Ox 98 Oxygen Delivery Method Room Air Weight Weight: 149 lb 14.629 oz Body Mass Index (BMI) 27.3 Results Medical Records Data Attestation: I reviewed the patient's medical records Lab / Micro Data Attestation: I reviewed the patient's lab results. 08/07/24 16:06 08/07/24 16:06 Labs: Laboratory Results - last 24 hr 08/07/24 16:06: WBC 15.1 H, RBC 5.11, Hgb 15.2 H, Hct 46.5, MCV 91.0, MCH 29.7, MCHC 32.7, RDW Std Deviation 52.4 H, RDW Coeff of Slava 15.6 H, Plt Count 193, MPV 11.9, Immature Gran % (Auto) 1.600 H, Neut % (Auto) 71.7 H, Lymph % (Auto) 15.0 L, [place] % (Auto) 9.7, Eos % (Auto) 1.1, Baso % (Auto) 0.9, Absolute Neuts (auto) 10.8 H, Absolute Lymphs (auto) 2.26, Nucleated RBC % 0, Sodium 137, Potassium 4.5, Chloride 107, Carbon Dioxide 14.6 L, Anion Gap 15, BUN 43 H, Creatinine 1.59 H, Estim Creat Clear Calc 25.08 L, Est GFR (MDRD) Non-Af 32 L, BUN/Creatinine Ratio 27.3 H, Glucose 139 H, Calcium 9.9, Total Bilirubin 0.52, AST 27, ALT 20, Alkaline Phosphatase 102, Troponin T High Sens 60 H*, Total Protein 6.3, Albumin 4.1, Globulin 2.2, Albumin/Globulin Ratio 1.8 08/07/24 18:06: Troponin T Hi Sens 2 Hr 55 H*, Urine Color Yellow, Urine Clarity Clear, Urine pH 6.0, Ur Specific [place] 1.015, Urine Protein 30 H, Urine Glucose (UA) Normal, Urine Ketones Negative, Urine Occult Blood 150 H, Urine Nitrite Positive H, Urine Bilirubin Negative, Urine Urobilinogen Normal, Ur Leukocyte Esterase 25 H, Urine RBC 0-5 SEEN, Urine WBC 5-10 SEEN, Ur Squamous Epith Cells 0 SEEN, Urine Bacteria 3+, Urine Mucus 0 SEEN Imaging [facility] Imaging Services [address] [place] [address] [id number] Abdomen/Pelvis without Cont MR#: [id number] Acct: [id number] Name: VALENTIN PERALTA Rep #: [id number] : 1945 F 79 From: Omar Carrillo MD PCP: Dr. Amos Fulton MD Status: ADM IN Study: Abdomen/Pelvis without Cont Date of Exam: 08/07/24 Exam# [id number] Ordering Dr: Nixon Silverio DO PROCEDURE: ABDOMEN/PELVIS WITHOUT CONT 08/07/2024 REASON FOR EXAM: UTI WITH SEPSIS. EVALUATE FOR PYELO. TECHNIQUE: ABDOMEN/PELVIS WITHOUT CONT Noncontrast technique limits evaluation of the abdominal and pelvic viscera. Coronal and Sagittal reconstruction series were provided. One or more dose reduction techniques were used (e.g., Automated exposure control, adjustment of the mA and/or kV according to patient size, use of iterative reconstruction technique). ORAL CONTRAST TYPE: None. AMOUNT: mL COMPARISON: 12/07/2023. FINDINGS: Lung bases are clear. The peripheral soft tissues are unremarkable. Degenerative changes of the spine. Moderate atherosclerosis. Normal caliber abdominal aorta. IVC filter within the caval lumen. The liver is unremarkable. Absent gallbladder. The pancreas is unremarkable. Splenic calcification which may represent prior granulomatous infection. The adrenals unremarkable. Right kidney simple cysts. No right hydroureteronephrosis. Surgically absent left kidney. Urinary bladder is collapsed around a Jarrell catheter. Possible urinary bladder wall thickening. Colonic diverticulosis. No surrounding inflammatory changes. Dense colonic stool. Normal caliber large and small bowel. CT/Abdomen/Pelvis without Cont IMPRESSION: Possible urinary bladder wall thickening which is poorly visualized due to decompression around a Jarrell catheter. Correlate with urinalysis to exclude cystitis. Right kidney simple cyst. Otherwise, normal appearance of the right kidney. Surgically absent left kidney. Infrarenal IVC filter. If not actively managed by Interventional Radiology, consider a consult for management. Colonic diverticulosis. Reading Location: [id number] CC: Dr. Nixon Silverio DO; Dr. Amos Fulton MD ~ [employer]: Signed Assessment & Plan Assessment/Plan (1) Acute cystitis without hematuria: (2) Sepsis: QUALIFIERS: Sepsis acute organ dysfunction status: without acute organ dysfunction Sepsis type: sepsis due to unspecified organism Qualified Code(s): A41.9 - Sepsis, unspecified organism (3) Leukocytosis: QUALIFIERS: Leukocytosis type: bandemia Qualified Code(s): D72.825 - Bandemia (4) Kyler's disease: (5) Dehydration: (6) Bradycardia: (7) Elevated troponin: (8) Dark stools: (9) Aortic stenosis: QUALIFIERS: Cardiac valve disease etiology: etiology unspecified Qualified Code(s): I35.0 - Nonrheumatic aortic (valve) stenosis (10) MVP (mitral valve prolapse): (11) Overweight (BMI 25.0-29.9): PLAN: Plan 1. UA; positive for evidence of Acute Cystitis; without hematuria with a corresponding Leukocytosis of 15.1K with Left-shift of 1.6% present on admission concerning for Sepsis in the setting of known D Hanis's disease with suspected superimposed Adrenal Insufficiency with orthostatic hypotension and frequent falls; on hydrocortisone 20 mg PO daily - Admit to ICU for treatment under the Sepsis protocol. Continue IV ceftriaxone begun in the ER and await culture and sensitivity data. Serialize lactate with level yet to be obtained. Give promethazine prn nausea and vomiting. Give acetaminophen prn for [id number] (level 1-5/10) pain or fever. Give morphine IV prn for severe (level 6-10/10) pain. Finally, we will maintain supplemental hydrocortisone 50 mg IV q. 8 hours. 2. Elevated BUN/creatinine ratio of 27.3 present on admission suggestive of Dehydration complicating #1 - Volume resuscitate and recheck renal indices daily to follow trend. 3. Elevated Troponin T of 60 ng/L present on admission likely due to Acute Cardiac Strain from Severe Bradycardia with Orthostatic Lightheadedness compounding #1 & #2 - Serialize troponin and treat supportively. 4. Dark stools on warfarin worrisome for possible GI bleed adding to the medical complexity of #1 - #3 - Keep NPO. Hemoccult stools. Type & Screen blood. Check INR since one has yet to be obtained this admission. 5. Recent LHC done here by Dr. Marte on August 05, 2024 with LVEF ~60% and mild luminal irregularities with [id number] plus grade II mitral valve insufficiency with MVP - We will consult [facility] to see patient this admission for further recommendations with help appreciated in advance. 6. Overweight; with BMI of 27.4 this admission adding to the burden of disease outlined from #1 - #5 - Weight loss will be recommended. Check TSH. 7. Essential hypertension; on lisinopril - Hold scheduled antihypertensives in light of #1. 8. Hyperlipidemia; on simvastatin - Resume statin. 9. CAD; s/p NSTEMI (2009) on prn SL NTG - Hold prn SL NTG until hypotension resolves. 10. History of PE and recurrent DVT's; on warfarin - Hold warfarin with dark stools until GI bleed ruled out plus check INR since one has yet to be done this admission. 11. History of renal cancer; s/p partial Right nephrectomy - Noted. 12. History of Left nephrectomy to donate kidney to her brother - Noted. 13. History of pyelonephritis - Noted. Check CT scan of the abdomen and pelvis this admission. 14. CKD; stage IIIb - Stable with serum creatinine of 1.59 mg/dL, BUN of 43 mg/dL and eGFR of 32 mL/min present on admission. 15. History of cystocele with rectocele; s/p bladder repair surgery ~20 years ago - Noted. 16. History of ARIEL - Noted. 17. History of atopic dermatitis - Stable. 18. Osteopenia; on denosumab - Restart denosumab as outpatient. 19. OA; on prn acetaminophen - Give acetaminophen prn as outlined in #1. 20. DVT prophylaxis - Awaiting INR. Start SCD's. Hold warfarin in light of #4. Total time: Approximately (but not less than) 75 minutes. Sepsis Attestation Sepsis Alert: Yes Sepsis Attestation: Agree w/Sepsis Date exam was performed: 08/07/24 Time exam was performed: 20:15 Possible Source of Sepsis: Genitourinary Sepsis Organ Dysfunction Criteria Present: SBP < 90 mmHg or MAP < 65 mmHg and SBP decrease of more than 40 mmHg Fluid Resuscitation Fluid resuscitation indicated?: Yes Fluid Resuscitation ordered: 30 ml/kg fluid bolus ordered Amount of fluid ordered: 2 Sepsis Note Date exam was performed: 08/08/24 Time exam was performed: 00:15 Sepsis Attestation: Sepsis re-evaluation was performed Response to fluids: Fluid responsive hypotension Charges/Coding Visit Charges Inpatient E&M: 99703 Init Hosp L3
[2024-08-07] MEDS: Ceftriaxone 2 GM in 0.9% Normal Saline (50mL MB+) 50 ML IV (19:57)
[2024-08-07] MEDS: Hydrocortisone Sod Succinate 100 MG/2 ML Vial IV (19:58)
--- NOTE | 2024-08-07 20:24 | CT_ITS ---
PROCEDURE: ABDOMEN/PELVIS WITHOUT CONT 08/07/2024 REASON FOR EXAM: UTI WITH SEPSIS. EVALUATE FOR PYELO. TECHNIQUE: ABDOMEN/PELVIS WITHOUT CONT Noncontrast technique limits evaluation of the abdominal and pelvic viscera. Coronal and Sagittal reconstruction series were provided. One or more dose reduction techniques were used (e.g., Automated exposure control, adjustment of the mA and/or kV according to patient size, use of iterative reconstruction technique). ORAL CONTRAST TYPE: None. AMOUNT: mL COMPARISON: 12/07/2023. FINDINGS: Lung bases are clear. The peripheral soft tissues are unremarkable. Degenerative changes of the spine. Moderate atherosclerosis. Normal caliber abdominal aorta. IVC filter within the caval lumen. The liver is unremarkable. Absent gallbladder. The pancreas is unremarkable. Splenic calcification which may represent prior granulomatous infection. The adrenals unremarkable. Right kidney simple cysts. No right hydroureteronephrosis. Surgically absent left kidney. Urinary bladder is collapsed around a Jarrell catheter. Possible urinary bladder wall thickening. Colonic diverticulosis. No surrounding inflammatory changes. Dense colonic stool. Normal caliber large and small bowel. CT/Abdomen/Pelvis without Cont IMPRESSION: Possible urinary bladder wall thickening which is poorly visualized due to deco mpression around a Jarrell catheter. Correlate with urinalysis to exclude cystitis. Right kidney simple cyst. Otherwise, normal appearance of the right kidney. Surgically absent left kidney. Infrarenal IVC filter. If not actively managed by Interventional Radiology, co nsider a consult for management. Colonic diverticulosis. Reading Location: [place] [address]
[2024-08-07 21:12] LABS: International Normalized Ratio 1.1; Prothrombin Time (Protime)PT. 14.9 SECONDS (11.7-14.9)
[2024-08-07 21:32] LABS: Ferritin 107 ng/mL (22-378); Iron 55 ug/dL (50-170); Iron Binding Capacity,Total 295 ug/dL (250-450); Iron Binding Capacity,Unsat 240 ug/dL (228-428)
[2024-08-07] MEDS: 0.9% Normal Saline (1000mL) 1,000 ML 999 ML IV (21:36)
[2024-08-07 21:54] LABS: Lactic Acid < 1.0 mmol/L (0.0-2.0)
[2024-08-07 21:58] LABS: Troponin T High Sens 4 HR 52 ng/L (<=14)
--- OUTSIDE RECORDS SUMMARY | 2024-08-07 22:39 | XMS RPT_ITS | CCD ---
Author Organization [facility] Team Providers Care [place] Naturalist Name Role Phone ABEL HOLM Unavailable Unavailable MIHIA, ABEL Unavailable Unavailable MIHAI, ABEL Unavailable Unavailable MIHAI, ABEL Unavailable Unavailable ARUN CALERO Attending Unavailable ARUN CALERO Admitting Unavailable UNKNOWN, DOC Referring Unavailable Dr. Amos Floyd Primary Care Provider Dr. Amos Floyd Referring Provider NIGHAT Shannon Attending Provider NIGHAT Shannon Other Provider Dr. Jordan Marte Attending Provider Amos Floyd MD Primary Care Provider Dr. Amos Floyd Primary Care Provider Dr. Amos Floyd Referring Provider NIGHAT Shannon Attending Provider Dr. Amos Floyd Primary Care Provider Amos Floyd MD Primary Care Provider Dr. Amos Floyd Primary Care Provider Dr. Juan Alberto Mcclendon Emergency Provider Dr. Jace Lantigua Admit Provider Dr. Jace Lantigua Attending Provider Dr. Jace Lantigua Other Provider Dr. Memo Hunter Other Provider Dr. Shiva Wood Other Provider Dr. Sukhdeep Gaming Other Provider Dr. Logan Tripathi Other Provider Unavailab Lopez CERTIFIED PEER SPECIALIST, CERTIFIED PEER SPECIALIST-C Diana Other Provider Dr. Alberto Gregorio Attending Provider Dr. Sukhdeep Gaming Attending Provider Dr. Sindi Tarango Other Provider Dr. Sindi Tarango Attending Provider Dr. Amos Floyd Primary Care Provider Dr. Juan Alberto Mcclendon Emergency Provider Dr. Jace Lantigua Admit Provider Dr. Jace Lantigua Attending Provider Dr. Jace Lantigua Other Provider Dr. Memo Hunter Other Provider Dr. Shiva Wood Other Provider Dr. Sukhdeep Gaming Other Provider Dr. Logan Tripathi Other Provider Unavailab tomas Palencia CERTIFIED PEER SPECIALIST, CERTIFIED PEER SPECIALIST-C Diana Other Provider Dr. Alberto Gregorio Attending Provider Dr. Alberto Gregorio Referring Provider Dr. Sukhdeep Gaming Attending Provider Dr. Sindi Tarango Other Provider Dr. Sindi Tarango Attending Provider Dr. Amos Floyd Referring Provider Dr. Torsten Vann Attending Provider Ron DISLA, NIGHAT Montes Attending Provider Amos Floyd MD Primary Care Provider Dr. Amos Floyd Primary Care Provider Dr. Amos Floyd Primary Care Provider Floyd, Dr. Trinidad Referring Provider NIGHAT Shannon Attending Provider Floyd, Dr. Trinidad Attending Provider Floyd, Dr. Trinidad Primary Care Provider Floyd, Dr. Trinidad Referring Provider NIGHAT Shannon Attending Provider Floyd, Dr. Trinidad Attending Provider Floyd, Dr. Trinidad Primary Care Provider Floyd, Dr. Trinidad Primary Care Provider Floyd, Dr. Trinidad Referring Provider NIGHAT Shannon Attending Provider Donaldo, Dr. Trinidad Primary Care Provider Floyd, Dr. Trinidad Referring Provider Dr. Torsten Vann Attending Provider Floyd, Dr. Trinidad Primary Care Provider Floyd, Dr. Trinidad Referring Provider Dr. Torsten Vann Attending Provider Roof CERTIFIED PEER SPECIALIST, CERTIFIED PEER SPECIALIST-Pasquale Prince Attending Provider Donaldo, Dr. Trinidad Primary Care Provider Floyd, Dr. Trinidad Referring Provider Dr. Jordan Marte Attending Provider FloydDr. Amos hernandez Primary Care Provider Donaldo, Dr. Trinidad Referring Provider Roof CERTIFIED PEER SPECIALIST, CERTIFIED PEER SPECIALIST-Pasquale Prince Attending Provider Dr. Jordan Marte Attending Provider ELISA MCDONOUGH Admitting Unavailable ELISA MCDONOUGH Attending Unavailable AMOS FLOYD Primary Care Unavailable Amos Floyd MD Primary Care Provider ELISA MCDONOUGH Admitting Unavailable AMOS FLOYD Primary Care Unavailable JAZMINE BRITT Attending Unavailable ALEXANDER GREGORY Consulting Unavailable Amos Floyd MD Primary Care Provider AMOS FLOYD Primary Care Unavailable MIDHA, JOSEFA Consulting Unavailable ICKES II, FLORIDALMA Admitting Unavailable MILADYS KEANE Referring Unava ilable EUGENIE LANGSTON Attending Unavailable MILADYS KEANE Attending Unava ilable AMOS FLOYD Primary Care Unavailable Fide ROAD ROLLER OPERATOR H[employer] M[employer].SPORTS TEAM MANAGER, Rocio M Unavailable Dr. Amos Floyd MD Primary Care Provider Estuardo ZELAYA, Dr. Ortega Other Provider Shameka Shannon Attending Provider Shameka Shannon Referring Provider Dr. Torsten Vann MD Other Provider Dr. Jennifer Tarango DO Other Provider [phone] Jennifer Tarango DO Attending Provider Dr. Jennifer Tarango DO Referring Provider Dr. Amos Floyd MD Referring Provider Tucker Mckeon Attending Provider Tucker Mckeon Referring Provider Dr. Jordan Marte MD Attending Provider Dr. Amos Floyd MD Primary Care Provider Dr. Jordan Marte MD Other Provider Shameka Shannon Attending Provider Shameka Shannon Referring Provider Dr. Torsten Vann MD Other Provider Dr. Jennifer Tarango DO Other Provider Hoang CERTIFIED PEER SPECIALIST-C, Heaven Attending Provider [phone] FLOYD, JIE Primary Care Unavailable FLOYD, JIE Primary Care Unavailable FLOYD, JIE Referring Unavailable FLOYD, JIE Primary Care Unavailable FLOYD, JIE Referring Unavailable KOLE EL Attending Unavailable FLOYD, JIE Primary Care Unavailable FLOYD, JIE Referring Unavailable SIENNA, KOLE Attending Unavailable FLOYD, JIE Primary Care Unavailable FLOYD, JIE Referring Unavailable FLOYD, JIE Primary Care Unavailable FLOYD, JIE Referring Unavailable SIENNA, KOLE Attending Unavailable FLOYD, JIE Primary Care Unavailable FIDEROCIO M Referring Unavailable SIENNA, KOLE Attending Unavailable FLOYD, JIE Primary Care Unavailable FIDE, ROCIO M Referring Unavailable SIENNA, KOLE Attending Unavailable FLOYD, JIE Primary Care Unavailable FIEDROCIO Referring Unavailable SIENNA, KOLE Attending Unavailable FLOYD, JIE Primary Care Unavailable FLOYD, JIE Referring Unavailable FLOYD, JIE Primary Care Unavailable JAVIER ABBOTT Referring Unavailable FLOYD, JIE Primary Care Unavailable JAVIER ABBOTT Attending Unavailable NATHALY REN Attending Unavailable FLOYD, JIE Primary Care Unavailable FLOYD, JIE Primary Care Unavailable FLOYD, JIE Primary Care Unavailable FLOYD, JIE Attending Unavailable FLOYD, JIE Primary Care Unavailable FLOYD, JIE Primary Care Unavailable FLOYD, JIE Primary Care Unavailable FLOYD, JIE Primary Care Unavailable SELF Referring Unavailable FLOYD, JIE Attending Unavailable FLOYD, JIE Primary Care Unavailable FLOYD, JIE Attending Unavailable Donaldo ZELAYA, Dr. Trinidad Primary Care Provider Estuardo ZELAYA, Dr. Ortega Referring Provider [phone] Donaldo, Amos Attending Unavailable Donaldo, Amos Primary Care Unavailable Jordan Marte Attending Unavailable Floyd, Amos Primary Care Unavailable Hoang OTERO, Heaven Attending Unavailable Floyd, Amos Primary Care Unavailable Floyd, Amos Referring Unavailable DemiterAjTucker Attending Unavailable Floyd, Amos Referring Unavailable Floyd, Amos Primary Care Unavailable Floyd, Amos Primary Care Unavailable Shameka Shannon Referring Unavail able Shameka Shannon Attending Unavail able Estuardo, Jordan Consulting Unavailable Edwar, Torsten Consulting Unavailable Sukhdeep, Jennifer Consulting Unavailable Floyd, Amos Primary Care Unavailable Estuardo, Jordan Consulting Unavailable Shameka Shannon Referring Unavail able Shameka Shannon Attending Unavail able Edwar, Torsten Consulting Unavailable Sukhdeep, Jennifer Consulting Unavailable Floyd, Amos Primary Care Unavailable Estuardo, [place] Consulting Unavailable Shameka Shannon Referring Unavail able Shameka Shannon Attending Unavail able Edwar, Torsten Consulting Unavailable Sukhdeep, Jennifer Consulting Unavailable Yasir Swartz Referring Unavailable SheridanYasir Attending Unavailable Floyd, Amos Primary Care Unavailable Estuardo, [place] Referring Unavailable Estuardo, Jordan Attending Unavailable Floyd, Amos Primary Care Unavailable Hoang CERTIFIED PEER SPECIALIST, Heaven Attending Unavailable Floyd, Amos Primary Care Unavailable Floyd, Amos Referring Unavailable Sukhdeep, Jennifer Referring Unavailable Sukhdeep, Jennifer Attending Unavailable Floyd, Amos Primary Care Unavailable DemiterAjTucker Referring Unavailable DemiterKater Attending Unavailable Floyd, Amos Primary Care Unavailable Floyd, Amos Primary Care Unavailable Floyd, Amos Attending Unavailable Floyd, Amos Referring Unavailable Shameka Shannon Referring Unavail able Estuardo, [place] Consulting Unavailable Shameka Shannon Attending Unavail able Floyd, Amos Primary Care Unavailable Edwar, Torsten Consulting Unavailable Sukhdeep, Jennifer Consulting Unavailable Estuardo, Jordan Consulting Unavailable Shameka Shannon Referring Unavail able Shameka Shannon Attending Unavail able Floyd, Amos Primary Care Unavailable Edwar, Torsten Consulting Unavailable Sukhdeep, Jennifer Consulting Unavailable Shameka Shannon Referring Unavail able Floyd, Amos Primary Care Unavailable Estuardo, [place] Consulting Unavailable Shameka Shannon Attending Unavail able Edwar, Torsten Consulting Unavailable Sukhdeep, Jennifer Consulting Unavailable SheridanYasir Referring Unavailable Sheridan, Ryan Attending Unavailable Floyd, Amos Primary Care Unavailable Floyd, Amos Primary Care Unavailable Shameka Shannon Attending Unavail able Shameka Shannon Referring Unavail able Estuardo, [place] Consulting Unavailable Edwar, Torsten Consulting Unavailable Sukhdeep, Jennifer Consulting Unavailable Estuardo, Jordan Consulting Unavailable Shameka Shannon Referring Unavail able Shameka Shannon Attending Unavail able Floyd, Amos Primary Care Unavailable Edwar, Torsten Consulting Unavailable Sukhdeep, Jennifer Consulting Unavailable Demiter, Tucker Referring Unavailable Demiter Tucker Attending Unavailable Floyd, Amos Primary Care Unavailable Estuardo, [place] Consulting Unavailable Shameka Shannon Attending Unavail able Shameka Shannon Referring Unavail able Floyd, Amos Primary Care Unavailable Edwar, Torsten Consulting Unavailable Sukhdeep, Jennifer Consulting Unavailable Estuardo, Jordan Consulting Unavailable Floyd, Amos Primary Care Unavailable Shameka Shannon Referring Unavail able Shameka Shannon Attending Unavail able Edwra, Torsten Consulting Unavailable Sukhdeep, Ejnnifer Consulting Unavailable Estuardo, Jordan Attending Unavailable Floyd, Amos Primary Care Unavailable Uday ZELAYA, Dr. Yeboah Emergency Provider [phone] stella Gelacio , Dr. Alicea Admit Provider Unavail able Silverio DO, Dr. Alicea Attending Provider Unav ailable de Gelacio , Dr. Alicea Referring Provider Unav ailable Allergies Allergy Classification Reported Allergen(s) Allergy Type Date of Onset Reaction(s) Facility Penicillins (antibiotic) (3 sources) Penicillins Drug Allergy 3 [facility] Quinolones (antibiotic) (3 sources) Ciprofloxacin Drug Allergy 0 [facility] (20 sources) ciprofloxacin; Translations: [CIPROFLOXACIN] Drug Allergy 0 Rash [facility] Repository (20 sources) Penicillins; Translations: [PENICILLINS] Propensity to adverse reactions (disorder) 3 Rash, Other [facility] Repository (1 source) ALLERGIES NOT ON FILE; Translations: [ALLERGIES NOT ON FILE] Propensity to adverse reactions (disorder) [facility] Repository (2 sources) amLODIPine; Translations: [AMLODIPINE] Drug Allergy 4 [facility] Work Phone: Medications Current Medications Medication Drug Class(es) Dates Sig (Normalized) Sig (Original) Acetaminophen (20 sources) Start: 05-24-2023 take 1 tablet by mouth every four hours as needed acetaminophen (Tylenol) tablet 650 mg Start: 04-08-2020 take 2 tablets by mo uth every six hours as needed for pain Acetaminophen 500 MG tablet Active 1000 mg PO EVERY 6 HOURS as needed for Pain Score 1-10 April 08, 2020 1:00am Start: 04-08-2020 take 1000 mg by mout h every six hours Acetaminophen Active 1000 MG PO EVERY 6 HOURS April 08, 2020 1:00am Start: 04-02-2020 End: 04-08-2020 take 1-10 tablets by mouth once daily as needed for pain Acetaminophen 500 MG tablet Discontinued 1000 mg PO DAILY NEEDED as needed for Pain 1-10 Or Fever April 02, 2020 1:00am April 08, 2020 8:44pm Start: 04-02-2020 End: 04-08-2020 take 1000 mg by mouth once daily as needed Acetaminophen Discontinued 1000 MG PO DAILY NEEDED April 02, 2020 1:00am April 08, 2020 8:44pm take 2 tablets by mo uth every six hours as needed acetaminophen (TYLENOL) 325 mg tablet Take 650 mg by mouth every 6 hours as needed. Active Comment on above: Take 650 mg by mouth every 6 hours as needed. ascorbic acid 1000 mg oral tablet (15 sources) Vitamin C Start: 08-07-2024 take 1 tablet by mouth at bedtime Ascorbic Acid (Vitamin C) 1,000 mg tablet Active 1000 mg PO AT BEDTIME August 07, 2024 12:00am Start: 04-29-2024 take 1 g by mouth once daily A scorbic Acid (Vitamin C) 1,000 mg capsule Active 1 g PO daily April 29, 2024 12:00am Start: 12-14-2023 take 1 tablet by dima th once daily at bedtime Ascorbic Acid 1,000 mg tablet Take 1,000 mg by mouth daily at bedtime. 12/14/2023 Active ciprofloxacin 500 mg oral tablet (1 source) Quinolone Antimicrobial End: 12-07-2021 ciprofloxacin HCl (CIPRO) 500 mg tablet Take by mouth twice daily. 0 12/07/2021 Active Comment on above: Take by mouth twice daily. 1 ml denosumab 60 mg/ml prefilled syringe (20 sources) RANK Ligand Inhibitor Start: 11-30-2023 End: 11-24-2024 denosumab 60 mg injection (PROLIA) Start: 11-30-2023 End: 11-24-2024 60 mg, SUBCUTANEOUS, EVERY 6 MONTHS, 2 doses, First dose on Mon11/30/23 at 1230, Last dose on Mon05/28/24 at 1230, Allow To Come To Room Temperature Before Administration. REFRIGERATE Start: 11-25-2021 End: 12-09-2023 Denosumab (Prolia) 60 mg/mL syringe Discontinued 60 mg SC every 6 months November 24, 2022 1:13pm November 24, 2022 2:28pm Start: 07-17-2020 End: 11-25-2020 Denosumab (Prolia) 60 mg/mL syringe Discontinued 60 mg SC every 6 months July 17, 2020 12:00am November 25, 2020 11:17am Start: 12-22-2019 End: 11-30-2023 inject 60 mg by subcutaneous injection once denosumab (PROLIA) 60 mg/mL Inject 60 mg subcutaneously once every [address] Torsten Vann, endocrinology. Due mid-12/22/2019 11/30/2023 Discontinued (Duplicate Entry) Comment on above: Inject 1 mL subcutan eously once every [address] Torsten Vann, endocrinology. Inject 60 mg subcuta neously once every [address] Torsten Vann, endocrinology. Due mid-June hydrocortisone 10 mg oral tablet (20 sources) Corticosteroid Start: 024 End: 025 take 3 tablets by mouth once daily hydrocortisone (CORTEF) 10 mg tablet Indications: Hypercalcemia , Adrenal hypofunction (HCC) Take 3 tablets by mouth once daily. As directed per endocrinology. 15 tablet 12/01/2023 07/24/2024 Discontinued Start: 06-20-2023 End: 08-11-2023 take 1 tablet by mouth once daily at bedtime hydrocortisone (CORTEF) 10 mg tablet Take 1 tablet by mouth daily at bedtime. Patient should start on June 20, 2023. 30 tablet 06/20/2023 08/11/2023 Discontinued Start: 06-13-2023 End: 08-11-2023 take 1 tablet by mouth twice daily hydrocortisone (CORTEF) 20 mg tablet Take 1 tablet by mouth two times a day for 6 days. 12 tablet 06/13/2023 08/11/2023 Discontinued Start: 05-24-2023 take 20 mg by mouth once daily 20 mg, oral, Daily, First dose on Mon05/24/23 at 0915 Start: 01-19-2023 End: 06-13-2023 take 1 tablet by mouth twice daily hydrocortisone (CORTEF) 10 mg tablet Indications: Adrenal hypofunction (HCC) , Hypercalcemia Take 10 mg by mouth two times a day. As directed per endocrinology. 0 01/19/2023 06/13/2023 Discontinued Start: 01-19-2023 hydrocortisone (CORTEF) 10 mg tablet Indications: Adrenal hypofunction (HCC) , Hypercalcemia As directed per endocrinology. 0 01/19/2023 Active Start: 08-04-2022 End: 11-24-2022 take 2 tablets by mouth once daily in the morning, then take 1 tablet by mouth once daily in the evening Hydrocortisone Active 20 MG PO DAILY@0600 90 November 24, 2022 2:26pm 2 tabs qam 1 tab qpm Start: 04-08-2020 End: 08-04-2022 take 1 tablet by mouth once daily Hydrocortisone 10 MG tablet Discontinued 10 mg PO DAILY@1800 30 April 08, 2020 1:00am August 04, 2022 1:25pm inflammation Start: 04-08-2020 End: 08-04-2022 take 20 mg by mouth once daily Hydrocortisone Disconti nued 20 MG PO DAILY@0600 60 April 08, 2020 1:00am August 04, 2022 1:26pm Start: 04-04-2020 End: 04-08-2020 take 2 tablets by mouth three times daily at mealtime Hydrocortisone 10 MG tablet Discontinued 20 mg PO 3 TIMES DAILY WITH MEALS April 04, 2020 1:28pm April 08, 2020 8:45pm Start: 04-04-2020 End: 04-08-2020 take 20 mg by mouth three times daily at mealtime Hydrocortisone Discontinued 20 MG PO 3 TIMES DAILY WITH MEALS April 04, 2020 1:28pm April 08, 2020 8:45pm Start: 03-23-2020 End: 08-11-2023 take 2 tablets by mouth once daily Hydrocortisone 10 MG tablet Discontinued 20 mg PO DAILY@0600 60 April 08, 2020 1:00am August 04, 2022 1:26pm Comment on above: Take 2 tablets by mo uth every morning AND 1 tablet every evening. As directed per endo crinology. Take 10 mg by mouth two times a day. As directed per endocrinology. ipratropium bromide 0.042 mg/actuat metered dose nasal spray (1 source) Anticholinergic Start: ipratropium bromide (ATROVENT) 42 mcg (0.06 %) nasal spray Indications: Chronic nonallergic rhinitis Use 2 sprays in the nose four times daily. 15 mL 2 07/24/2024 Active lisinopril 5 mg oral tablet (18 sources) Angiotensin Converting Enzyme Inhibitor Start: End: take 1 tablet by mouth once daily Lisinopril 5 mg tablet Active 5 mg PO daily July 23, 2024 8:15am methenamine hippurate 1000 mg oral tablet (15 sources) Start: Methenamine Hippurate 1 gram tablet Active 1 g PO AT BEDTIME April 29, 2024 12:00am nitroglycerin 0.4 mg sublingual tablet (20 sources) Nitrate Vasodilator Start: End: Nitroglycerin 0.4 mg tablet, sublingual Active 0.4 mg SL every 5 to 15 minutes as needed for Cardiac/Chest Pain July 26, 2023 2:15pm Comment on above: Dissolve 1 tablet un tommy the tongue every 5 minutes as needed. Ondansetron (1 source) Serotonin-3 Receptor Antagonist Start: take 1 tablet by mouth every eight hours as needed ondansetron (Zofran) tablet 4 mg simvastatin 20 mg oral tablet (20 sources) HMG-CoA Reductase Inhibitor Start: End: take 1 tablet by mouth at bedtime Simvastatin 20 mg tablet Active 20 mg PO AT BEDTIME July 23, 2024 8:17am Start: 03-24-2016 End: 08-01-2019 take 1 tablet by mouth at bedtime Simvastatin 20 MG tablet Discontinued 20 mg PO AT BEDTIME March 24, 2016 1:00am August 01, 2019 10:30am Comment on above: Take 1 tablet by dima th daily at bedtime. 1000 ml sodium chloride 9 mg/ml injection (2 sources) Start: 05-24-2023 End: 05-26-2023 sodium chloride 0.9% infusion Start: 05-24-2023 End: 05-24-2023 take 100 mL intravenously every hour 100 mL/hr, intravenous, Continuous, Starting on Mon05/24/23 at 0230, For 1 day Completed/Discontinued Medications Medication Drug Class(es) Dates Sig (Normalized) Sig (Original) acetaminophen 325 mg / HYDROcodone bitartrate 5 mg oral tablet (20 sources) Opioid Agonist Start: 03-30-2016 End: 05-21-2018 Hydrocodone-Acetami nophen 1 TABLET tablet Discontinued 1 {tbl} PO EVERY 6 HOURS NEEDED as needed for Pain March 30, 2016 1:00am May 21, 2018 8:36am Start: 03-30-2016 End: 05-21-2018 take 1 tablet by mouth every six hours as needed Hydrocodone-Acetaminophen Discontinued 1 TABLET PO EVERY 6 HOURS NEEDED March 30, 2016 1:00am May 21, 2018 8:36am alendronic acid 70 mg oral tablet (20 sources) Bisphosphonate Start: 05-21-2018 End: 08-01-2019 take 1 tablet by mouth every week Alendronate (Fosamax) 70 mg tablet Discontinued 70 mg PO EVERY WEEK May 21, 2018 12:00am August 01, 2019 10:27am amLODIPine 5 mg oral tablet (20 sources) Dihydropyridine Calcium Channel Debo Start: 11-28-2023 End: 04-29-2024 take 2.5 mg by mouth once daily Amlodipine 5 mg tablet Discontinued 2.5 mg PO daily November 28, 2023 11:17am April 29, 2024 10:59am Start: 11-02-2023 End: 11-28-2023 take 1 tablet by mouth once daily Amlodipine 5 mg tablet Discontinued 5 mg PO daily November 02, 2023 4:10pm November 28, 2023 11:18am Start: 08-11-2023 End: 11-02-2023 take 1 tablet by mouth once daily Amlodipine 10 mg tablet Discontinued 10 mg PO DAILY October 11, 2023 11:42am November 02, 2023 3:26pm Start: 08-02-2023 End: 08-11-2023 take 1 tablet by mouth once daily Amlodipine 5 mg tablet Discontinued 5 mg PO DAILY August 02, 2023 12:00am August 11, 2023 3:26pm Start: 03-03-2023 End: 08-02-2023 take 1 tablet by mouth once daily Amlodipine 2.5 mg tablet Discontinued 2.5 mg PO DAILY March 03, 2023 10:21am August 02, 2023 1:13pm Start: 10-26-2022 End: 05-31-2023 take 2.5 mg by mouth once amLODIPine (NORVASC) 5 mg ta blet Take 2.5 mg by mouth once daily. [facility]. 10/26/2022 05/31/2023 Discontinued (Clinical Decision) Start: 01-25-2022 End: 03-03-2023 take 1 tablet by mouth once daily Amlodipine 5 mg tablet Discontinued 5 mg PO DAILY May 30, 2022 12:10pm March 03, 2023 10:22am Start: 12-14-2021 End: 10-26-2022 take 1 tablet by mouth once daily Amlodipine 2.5 mg tablet Discontinued 2.5 mg PO DAILY January 25, 2022 1:00am January 25, 2022 1:00pm Start: 07-20-2021 End: 12-06-2021 take 1 tablet by mouth once daily amLODIPine (NORVASC) 2.5 mg tablet Take 1 tablet by mouth once daily. 0 07/20/2021 12/06/2021 Discontinued Start: 07-12-2021 End: 12-02-2021 Amlodipine (Norvasc) 2.5 mg tablet Discontinued 2.5 mg PO DAILY July 12, 2021 11:42am December 02, 2021 1:39pm On Hold: Until SBP > 140 Start: 2021 End: 07-12-2021 take 1 tablet by mouth once daily Amlodipine (Norvasc) 2.5 mg tablet Discontinued 2.5 mg PO DAILY 2021 1:00am July 12, 2021 11:43am Start: 07-17-2020 End: 01-20-2021 take 1 tablet by mouth once daily Amlodipine 5 mg tablet Discontinued 5 mg PO DAILY 90 July 17, 2020 12:00am January 20, 2021 2:23pm take 2 tablets by mo uth once daily amLODIPine (NORVASC) 5 mg tablet Take 10 mg by mouth once daily. Active Comment on above: Take 1 tablet by dima th once daily. Take 2.5 mg by mouth once daily. Take 1 tablet by dima th once daily. [facility]. Take 2.5 mg by mouth once daily. [facility]. atorvastatin 10 mg oral tablet (20 sources) HMG-CoA Reductase Inhibitor Start: End: take 1 tablet by mouth at bedtime Atorvastatin 10 MG tablet Discontinued 10 mg PO AT BEDTIME April 09, 2020 1:00am July 17, 2020 1:18pm betamethasone 0.5 mg/ml topical cream (14 sources) Corticosteroid Start: End: betamethasone dipropionate (DIPROSONE) 0.05 % cream Apply to affected areas of arms and legs twice daily for 5 days on, 2 days off, repeat as needed for itching. 45 g 5 08/25/2021 05/25/2022 Discontinued Comment on above: Apply to affected ar eas of arms and legs twice daily for 5 days on, 2 days off, repeat as needed for itching. betamethasone 0.5 mg/ml / calcipotriene 0.05 mg/ml topical lotion (10 sources) Corticosteroid, Vitamin D Analog Start: End: Betamethasone-Calcip otriene external suspension Apply 1 application to affected area once daily. For the areas of itching as needed. 60 g 3 11/25/2021 05/25/2022 Discontinued Comment on above: Apply 1 application to affected area once daily. For the areas of itching as needed. calcium carbonate 1250 mg / cholecalciferol 200 unt oral tablet (20 sources) Vitamin D Start: 017 End: Calcium Carbonate-Vitamin D3 1 EACH tablet Discontinued 1 NMA PO DAILY April 04, 2020 1:00am April 10, 2020 10:17am Start: 03-24-2016 End: 04-10-2020 Calcium Carbonate-Vitamin D3 Discontinued 1 EACH PO DAILY April 04, 2020 1:00am April 10, 2020 10:17am cephalexin 500 mg oral capsule (20 sources) Cephalosporin Antibacterial Start: 11-28-2023 End: 04-29-2024 take 1 capsule by mouth three times daily Cephalexin 500 mg capsule Discontinued 500 mg PO THREE TIMES A DAY November 28, 2023 12:00am April 29, 2024 10:59am Start: 05-24-2023 take 500 mg by mouth every twelve hours 500 mg, oral, Every 12 hours scheduled, First dose on Mon05/24/23 at 1130 Suspected Indication (Select all that apply): Urinary Tract Infection Type of Therapy: Empiric Type of Urinary Tract Infection: Uncomplicated Start: 05-23-2023 End: 05-31-2023 take 1 capsule by mouth twice daily Cephalexin 500 mg capsule Discontinued 500 mg PO TWICE A DAY May 23, 2023 12:00am May 31, 2023 2:21pm Comment on above: Take 1 capsule by [facility] two times a day for 5 days. cholecalciferol 0.025 mg oral capsule (20 sources) Vitamin D Start: 01-26-20 End: 05-23-19 take 1 capsule by mouth once daily Cholecalciferol (Vitamin D3) 25 mcg (1,000 unit) capsule Discontinued 50 ug PO DAILY January 25, 2022 12:30pm May 23, 2023 8:18pm Start: 2021 End: 01-25-2022 take 1 capsule by mouth once daily Cholecalciferol (Vitamin D3) 25 mcg (1,000 unit) capsule Discontinued 25 ug PO DAILY 2021 1:00am January 25, 2022 12:32pm Start: 03-20-2020 End: 07-17-2020 Cholecalciferol (Vitamin D3) 25 MCG capsule Discontinued 1000 U PO DAILY March 20, 2020 1:00am July 17, 2020 1:20pm Start: 03-20-2020 End: 07-17-2020 take 1000 [IU] by mouth once daily Cholecalciferol (Vitamin D3) Discontinued 1000 UNIT PO DAILY March 20, 2020 1:00am July 17, 2020 1:20pm End: 05-23-2023 take 1 tablet by mouth once daily cholecalciferol (VITAMIN D3) 400 unit tab Take 400 Units by mouth once daily. 05/23/2023 Discontinued (Discontinued by another Health Care Provider) Comment on above: Take 400 Units by [facility] once daily. cyproheptadine hydrochloride 4 mg oral tablet (20 sources) Start: 019 End: take 1 tablet by mouth three times daily Cyproheptadine 4 mg tablet Discontinued 4 mg PO THREE TIMES A DAY August 01, 2018 12:00am August 01, 2019 10:29am 2 ml dupilumab 150 mg/ml prefilled syringe (20 sources) Interleukin-4 Receptor alpha Antagonist Start: End: inject 300 mg by subcutaneous injection every other week dupilumab 300 mg/2 mL subcutaneous syringe (DUPIXENT) Indications: Atopic neurodermatitis Inject 300 mg SQ every 2 weeks 4 mL 11 11/11/2020 12/06/2021 Discontinued Start: 04-02-2020 End: 06-12-2023 inject 300 mg by subcutaneous injection every other week Dupilumab 300 MG/2 ML pen injector Discontinued 300 mg SQ .[id number] April 02, 2020 1:00am April 04, 2020 10:48am Comment on above: Inject 300 mg SQ gwen ry 2 weeks .[id number] Dupilumab (10 sources) Start: End: inject 200 mg by subcutaneous injection every other week Dupilumab (Dupixent Pen) 200 mg/1.14 mL pen injector Discontinued 200 mg SC .COMPLEX May 23, 2023 12:00am July 26, 2023 2:01pm On Hold: Ordered 200 mg subcutaneously Every other week; Start: 05-23-2023 inject 200 mg by sub cutaneous injection every other week Dupilumab (Dupixent Pen) 200 mg/1.14 mL pen injector Active 200 MG SC .COMPLEX May 23, 2023 12:00am 200 mg subcutaneously Every other week; fludrocortisone acetate 0.1 mg oral tablet (20 sources) Start: 04-23-2020 End: 07-17-2020 take 1 capsule by mouth once daily Florinef capsule Discontinued 0.1 mg PO DAILY April 23, 2020 1:00am July 17, 2020 1:19pm Start: 04-04-2020 End: 04-08-2020 take 1 tablet by mouth once daily Fludrocortisone 0.1 MG tablet Discontinued 0.1 mg PO DAILY@0800 April 04, 2020 1:28pm April 08, 2020 8:46pm fluticasone propionate 0.05 mg/actuat metered dose nasal spray (20 sources) Corticosteroid Start: 05-23-2023 End: 05-31-2023 Fluticasone Propionate 50 mcg/actuation spray,suspension Discontinued 2 NMA INTRANASAL DAILY May 23, 2023 12:00am May 31, 2023 2:21pm Start: 05-23-2023 End: 05-31-2023 Fluticasone Propionate Disco ntinued 2 SPRAY INTRANASAL DAILY May 23, 2023 12:00am May 31, 2023 2:21pm Start: 03-14-2023 End: 06-12-2023 take 2 spray(s) by mouth once daily fluticasone (FLONASE) 50 mcg/actuation nasal spray Indications: Dizziness , Allergic rhinitis, unspecified seasonality, unspecified trigger Use 2 Sprays in each nostril once daily. Rinse mouth after use. 1 Each 1 03/14/2023 06/12/2023 Discontinued (Adjust Sig - Block E-Cancel) Start: 04-08-2020 Fluticasone Pr opionate Active 1 SPRAY NASAL AT BEDTIME April 08, 2020 1:00am End: 07-20-2021 take 1 spray(s) nasal route once daily fluticasone (FLONASE ALLERGY RELIEF) 50 mcg/actuation nasal spray Use 1 [place] in each nostril once daily. 0 07/20/2021 Discontinued Comment on above: Use 1 [place] in each nostril once daily. Use 2 Sprays in each nostril once daily. Rinse mouth after use. gabapentin 300 mg oral capsule (20 sources) Anti-epileptic Agent Start: 03-20-2020 End: 04-17-2020 take 1 capsule by mouth once daily Gabapentin 300 MG capsule Discontinued 300 mg PO DAILY March 20, 2020 1:00am April 17, 2020 3:15pm Start: 03-20-2020 End: 04-17-2020 take 2 capsules by mouth at bedtime Gabapentin 300 MG capsule Discontinued 600 mg PO AT BEDTIME March 20, 2020 1:00am April 17, 2020 3:15pm Start: 03-20-2020 End: 04-17-2020 take 600 mg by mouth at bedtime Gabapentin Discontinue d 600 MG PO AT BEDTIME March 20, 2020 1:00am April 17, 2020 3:15pm hydrOXYzine hydrochloride 50 mg oral tablet (14 sources) Antihistamine Start: 01-19-2023 End: 05-31-2023 take 1 tablet by mouth at bedtime as needed hydrOXYzine HCl (ATARAX) 50 mg tablet Indications: Atopic neurodermatitis Take 1 tablet by mouth at bedtime as needed for itching/rash. 30 tablet 0 01/19/2023 05/31/2023 Discontinued (Discontinued by Patient) Comment on above: Take 1 tablet by dima th at bedtime as needed for itching/rash. 24 hr isosorbide mononitrate 30 mg extended release oral tablet (20 sources) Nitrate Vasodilator Start: 03-24-2016 End: 08-01-2018 Isosorbide Mononitrate 30 MG tablet Discontinued 15 mg PO DAILY March 24, 2016 1:00am August 01, 2018 9:30am Start: 03-24-2016 End: 08-01-2018 take 15 mg by mouth once daily Isosorbide Mononitrate Discontinued 15 MG PO DAILY March 24, 2016 1:00am August 01, 2018 9:30am ketoconazole 20 mg/ml medicated shampoo (8 sources) Azole Antifungal Start: 11-11-2020 End: 12-06-2021 ketoconazole (NIZORAL) 2 % shampoo Indications: Seborrheic dermatitis Lather onto scalp and let sit 5 minutes before rinsing. 120 mL 11 11/11/2020 12/06/2021 Discontinued Comment on above: Lather onto scalp an d let sit 5 minutes before rinsing. L.Acidoph, Paracasei,B. Lactis (20 sources) Start: 03-24-2016 End: 07-17-2020 L.Acidoph, Paracasei,B. Lactis Discontinued 1 EACH PO DAILY March 24, 2016 12:45pm July 17, 2020 1:19pm Start: 03-24-2016 End: 07-17-2020 L.Acidoph, Paracasei,B. Lact is Discontinued 1 EACH PO DAILY March 24, 2016 12:00am July 17, 2020 12:19pm Start: 03-24-2016 End: 07-17-2020 L.Acidoph, Paracasei,B. Lact is Discontinued 1 EACH PO DAILY March 24, 2016 1:00am July 17, 2020 1:19pm L.Acidoph,Paracasei,B.Animal is 1 EACH capsule (7 sources) Start: 03-24-2016 End: 07-17-2020 take 1 capsule by mouth once daily L.Acidoph,Paracasei,B.Animalis 1 EACH capsule Discontinued 1 NMA PO DAILY March 24, 2016 1:00am July 17, 2020 1:19pm levocetirizine dihydrochlori de 5 mg oral tablet (20 sources) Hist evans e-[address]ta goni [address] Start: 08-25-2021 End: 05-31-2023 take 1 tablet by mouth once daily Levocetirizine 5 mg tablet Discontinued 5 mg PO DAILY November 16, 2021 12:00am May 23, 2023 8:17pm Comment on above: Take 1 tablet by dima once daily. losartan potassium 50 mg ora l tablet (20 sources) Janine oten sin 2 Rece ptor Bloc ker Start: 01-20-2021 End: 12-02-2021 Losartan 50 mg tablet Discontinued 50 mg PO DAILY January 20, 2021 1:00am December 02, 2021 1:40pm On Hold: Until SBP consistently > 140 Start: 11-20-2020 End: 12-06-2021 take 1 tablet by mouth once daily losartan (COZAAR) 50 mg tablet Indications: Essential hypertension Take 1 tablet by mouth once daily. 30 tablet 11 11/20/2020 12/06/2021 Discontinued Comment on above: Take 1 tablet by dima once daily. meclizine hydrochloride 25 mg oral tablet (20 sources) Antiemetic Start: 03-14-19 End: 07-26-19 take 1 tablet by mouth every six hours as needed for dizziness Meclizine 25 mg tablet Discontinued 25 mg PO EVERY 6 HOURS NEEDED as needed for dizziness May 23, 2023 12:00am July 26, 2023 2:02pm Comment on above: Take 1 tablet by dima th every 6 hours as needed (dizziness). menthol 0.0044 mg/mg / zinc oxide 0.206 mg/mg topical ointment (20 sources) Start: 04-08-19 End: 07-18-19 Menthol-Zinc Oxide 1 APPLIC ointment Discontinued 1 NMA TOPICAL April 08, 2020 1:00am July 17, 2020 1:19pm skin issues Please contact the information source for Protocol details. Start: 04-08-2020 End: 07-17-2020 Menthol-Zinc Oxide Discontin ued 1 APPLIC TOPICAL April 08, 2020 1:00am July 17, 2020 1:19pm skin issues methotrexate 2.5 mg oral tablet (20 sources) Folate Analog Metabolic Inhibitor Start: 08-01-2018 End: 08-01-2019 Methotrexate Sodium 2.5 mg tablet Discontinued 15 mg PO EVERY WEEK August 01, 2018 12:00am August 01, 2019 10:29am Start: 08-01-2018 End: 08-01-2019 take 15 mg by mouth every week Methotrexate Sodium Dis continued 15 MG PO EVERY WEEK August 01, 2018 12:00am August 01, 2019 10:29am midodrine hydrochloride 2.5 mg oral tablet (20 sources) alpha-Adrenergic Agonist Start: 06-30-2023 End: 07-19-2023 take 0.5 tablet by mouth twice daily, then take 1 tablet by mouth twice daily midodrine (PROAMATINE) 2.5 mg tablet Take 0.5 tablets by mouth two times a day. Take one tablet by mouth twice a day four hours apart. Avoid laying down flat for at least 4 hours after taking. Do not take less than four hours before bedtime 60 tablet 06/30/2023 07/19/2023 Discontinued (Clinical Decision) Start: 05-31-2023 End: 06-30-2023 take 1 tablet by mouth twice daily midodrine (PROAMATINE) 2.5 mg tablet Take one tablet by mouth twice a day four hours apart. Avoid laying down flat for at least 4 hours after taking. Do not take less than four hours before bedtime 60 tablet 0 06/08/2023 06/30/2023 Discontinued Start: 03-22-2020 End: 04-02-2020 take 1 tablet by mouth three times daily Midodrine 10 MG tablet Discontinued 10 mg PO THREE TIMES A DAY 180 March 22, 2020 1:00am April 02, 2020 4:47pm Comment on above: Take one tablet by m outh twice a day four hours apart. Avoid laying down flat for at least 4 hours after taking. Do not take less than four hours before bedtime pantoprazole 40 mg delayed release oral tablet (20 sources) Proton Pump Inhibitor Start: 4 End: 5 take 1 tablet by mouth once daily in the morning pantoprazole DR (PROTONIX) 40 mg tablet Take 1 tablet by mouth daily at 6 am. 30 tablet 06/14/2023 07/24/2024 Discontinued predniSONE 1 mg oral tablet (20 sources) Start: End: 1 take 2 tablets by mouth at bedtime Prednisone 1 MG tablet Discontinued 2 mg PO AT BEDTIME March 20, 2020 1:00am April 04, 2020 10:46am Start: 03-20-2020 End: 04-04-2020 take 2 mg by mouth at bedtime Prednisone Discontinued 2 MG PO AT BEDTIME March 20, 2020 1:00am April 04, 2020 10:46am promethazine (Phenergan) 12. 5 mg in sodium chloride 0.9% 50 mL IV (1 source) Start: 05-25-2023 End: 05-25-2023 promethazine (Phenergan) 12. 5 mg in sodium chloride 0.9% 50 mL IV ruxolitinib (10 sources) Start: 03-14-2022 End: 10-26-2022 ruxolitinib (OPZELURA) 1.5 % cream Indications: Atopic neurodermatitis Apply to affected area twice daily. 60 g 3 03/14/2022 10/26/2022 Discontinued (Lack of Efficacy) Start: 03-14-2022 ruxolitinib (O PZELURA) 1.5 % cream Indications: Atopic neurodermatitis Apply to affected area twice daily. 60 g 3 03/14/2022 Active Start: 02-23-2022 End: 03-14-2022 ruxolitinib (OPZELURA) 1.5 % cream Indications: Atopic neurodermatitis Apply to affected area twice daily. 60 g 3 02/23/2022 03/14/2022 Discontinued Start: 02-23-2022 ruxolitinib (O PZELURA) 1.5 % cream Indications: Atopic neurodermatitis Apply to affected area twice daily. 60 g 3 02/23/2022 Active Comment on above: Apply to affected ar ea twice daily. salmon calcitonin 200 unt/ml injectable solution (1 source) Calcitonin Start: 05-24-2023 End: 05-25-2023 calcitonin (Miacalcin) injection 260 Units sodium polystyrene sulfonate 250 mg/ml oral suspension (20 sources) Start: 07-22-2020 End: 01-20-2021 Sodium Polystyrene Sulf-Sorbtl (Sps (With Sorbitol)) 15-20 gram/60 mL suspension Discontinued 60 mL PO ONCE July 22, 2020 12:00am January 20, 2021 2:23pm Start: 07-22-2020 End: 01-20-2021 Sodium Polystyrene Sulf-Sorb tl (Sps (With Sorbitol)) 15-20 gram/60 mL suspension Discontinued 60 ML PO ONCE July 22, 2020 12:00am January 20, 2021 2:23pm tralokinumab-ldrm (ADBRY) 15 0 mg/mL injection (7 sources) Start: 07-28-2022 End: 10-26-2022 tralokinumab-ldrm (ADBRY) 15 0 mg/mL injection Inject 4 syringes subcutaneously at week 0, then Inject 2 syringes subcutaneously at week 2, then inject 2 syringes subcutaneously every other week after this. 6 mL 11 07/28/2022 10/26/2022 Discontinued (Cost of medication) Start: 07-28-2022 tralokinumab-l drm (ADBRY) 150 mg/mL injection Inject 4 syringes subcutaneously at week 0, then Inject 2 syringes subcutaneously at week 2, then inject 2 syringes subcutaneously every other week after this. 6 mL 11 07/28/2022 Active Start: 07-22-2022 tralokinumab-l drm (ADBRY) 150 mg/mL injection Inject 4 syringes subcutaneously at week 0, then Inject 2 syringes subcutaneously at week 2, then inject 2 syringes subcutaneously every other week after this. 6 mL 11 07/22/2022 Active Start: 07-12-2022 End: 07-22-2022 tralokinumab-ldrm (ADBRY) 15 0 mg/mL injection Inject 4 syringes subcutaneously at week 0, then Inject 2 syringes subcutaneously at week 2, then inject 2 syringes subcutaneously every other week after this. 6 mL 07/12/2022 07/22/2022 Discontinued Start: 07-12-2022 tralokinumab-l drm (ADBRY) 150 mg/mL injection Inject 4 syringes subcutaneously at week 0, then Inject 2 syringes subcutaneously at week 2, then inject 2 syringes subcutaneously every other week after this. 6 mL 07/12/2022 Active Start: 05-25-2022 tralokinumab-l drm (ADBRY) 150 mg/mL injection Inject 4 syringes subcutaneously at week 0, then Inject 2 syringes subcutaneously at week 2, then inject 2 syringes subcutaneously every other week after this. 6 mL 05/25/2022 Active Comment on above: Inject 4 syringes roe bcutaneously at week 0, then Inject 2 syringes subcutaneously at week 2, then inject 2 syringes subcutaneously every other week after this. triamcinolone acetonide 1 mg/ml topical cream (20 sources) Corticosteroid Start: 08-27-2020 End: 11-17-2022 triamcinolone acetonide (KENALOG) 0.1 % cream Indications: Atopic neurodermatitis Apply 1 application to affected area twice daily. 454 g 1 08/27/2020 12/06/2021 Discontinued Start: 05-21-2018 End: 08-01-2018 Triamcinolone Acetonide 0.1 % cream Discontinued 1 NMA TOPICAL DAILY May 21, 2018 12:00am August 01, 2018 9:31am Comment on above: Apply 1 application to affected area twice daily. Apply to affected ar ea twice daily. Vitamin B Complex (20 sources) Start: 03-24-2016 End: 08-01-2018 Vitamin B Complex Discontinued 1 EACH PO DAILY March 24, 2016 12:45pm August 01, 2018 9:32am Start: 03-24-2016 End: 08-01-2018 Vitamin B Complex Discontinu ed 1 EACH PO DAILY March 24, 2016 12:00am August 01, 2018 8:32am Start: 03-24-2016 End: 08-01-2018 Vitamin B Complex Discontinu ed 1 EACH PO DAILY March 24, 2016 1:00am August 01, 2018 9:32am Vitamin B Complex 1 EACH capsule (7 sources) Start: 03-24-2016 End: 08-01-2018 Vitamin B Complex 1 EACH capsule Discontinued 1 NMA PO DAILY March 24, 2016 1:00am August 01, 2018 9:32am vitamin b12 1 mg oral tablet (20 sources) Vitamin B12 Start: 03-20-2020 End: 07-17-2020 take 1 tablet by mouth once daily Cyanocobalamin (Vitamin B-12) 1,000 MCG tablet Discontinued 1000 ug PO DAILY March 20, 2020 1:00am July 17, 2020 1:20pm warfarin sodium 2.5 mg oral tablet (20 sources) Vitamin K Antagonist Start: 04-02-2020 End: 04-04-2020 Warfarin 4 MG tablet Discontinued 4 mg PO MOWEApril 02, 2020 1:00am April 04, 2020 10:47am Start: 03-23-2020 End: 04-22-2024 take 1 tablet by mouth once daily Warfarin 2.5 mg tablet Discontinued 2.5 mg PO DAILY@1700 120 April 27, 2023 12:44pm April 22, 2024 11:47am daily or as directed Please contact the information source for Protocol details. Start: 03-20-2020 End: 03-22-2020 Warfarin 4 MG tablet Discont inued 4 mg PO MOWEFR March 20, 2020 1:00am March 22, 2020 11:49am Start: 11-11-2019 End: 04-04-2020 take 1 tablet by mouth once Warfarin 3 MG tablet Disco ntinued 3 mg PO every Monday, , , Sat April 02, 2020 4:47pm April 04, 2020 10:46am Please contact the information source for Protocol details. Start: 08-03-2018 End: 11-11-2019 take 1 tablet by mouth four times weekly Warfarin (Coumadin) 3 mg tablet Discontinued 3 mg PO 4 times per week July 09, 2019 1:13pm November 11, 2019 1:06pm Please contact the information source for Protocol details. Start: 11-07-2013 End: 11-11-2019 Warfarin 4 mg tablet Discont inued 4 mg PO SUMOWEFR 30 July 09, 2019 1:13pm November 11, 2019 1:06pm Please contact the information source for Protocol details. Comment on above: Take 1 tablet by dima th once daily. Problems Active Problems Problem Classification Problem Date Documented Da te Episodic/Chronic Acute and unspecified renal failure (20 sources) Injury of kidney; Translations: [Acute kidney failure, unspecified] Episodic Allergic reactions (20 sources) Atopic neurodermatitis; Translations: [Atopic neurodermatitis] Onset: 0 11-18-2019 Chronic Cancer of kidney and renal pelvis (20 sources) H/O: malignant neoplasm; Translations: [Personal history of other malignant neoplasm of kidney] Onset: 4 04-10-2020 Episodic 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 (20 sources) 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; Translations: [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, unspecified] Onset: 0 Resolved: 1 07-15-2021 Chronic 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 (2 sources) 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; Translations: [Stage 3b chronic kidney disease (HCC)] Onset: 4 Conditions associated with dizziness or vertigo (20 sources) Dizziness; Translations: [Dizziness and giddiness] 03-03-2023 Episodic Coronary atherosclerosis and other heart disease (20 sources) History of non-ST segment elevation myocardial infarction; Translations: [Old myocardial infarction] Onset: 0 Chronic Comment on above: possible coronary em bolism Diseases of white blood cells (2 sources) Leukocytosis; Translations: [Elevated white blood cell count, unspecified] 08-07-2024 Chronic Disorders of lipid metabolism (20 sources) Hyperlipidemia; Translations: [Hyperlipidemia, unspecified] Onset: 5 Chronic Esophageal disorders (20 sources) Gastroesophageal reflux disease; Translations: [Gastro-esophageal reflux disease without esophagitis] Onset: 4 01-20-2021 Chronic Essential hypertension (20 sources) Essential hypertension; Translations: [Essential (primary) hypertension] Onset: 1 Chronic Fluid and electrolyte disorders (20 sources) Hypokalemia; Translations: [Hypokalemia] Onset: 0 Resolved: 0 05-14-2009 Episodic Heart valve disorders (20 sources) Aortic valve stenosis; Translations: [Nonrheumatic aortic (valve) stenosis] Onset: 3 08-04-2022 Chronic Hypertension with complications and secondary hypertension (20 sources) Hypertensive renal disease; Translations: [Hypertensive chronic kidney disease with stage 1 through stage 4 chronic kidney disease, or unspecified chronic kidney disease] Onset: 1 07-15-2021 Chronic Immunizations and screening for infectious disease (9 sources) Vaccination needed; Translations: [Encounter for immunization] Onset: 5 Episodic Intracranial injury (20 sources) Closed injury of head; Translations: [Unspecified intracranial injury with loss of consciousness of unspecified duration, initial encounter] 11-21-2019 Episodic Malaise and fatigue (20 sources) Asthenia; Translations: [Weakness] Onset: 4 Resolved: 5 04-10-2020 Episodic Nonmalignant breast conditions (1 source) Mastodynia; Translations: [Mastodynia] Episodic Nonspecific chest pain (20 sources) Chest pain; Translations: [Chest pain, unspecified] Onset: 5 Episodic Nutritional deficiencies (1 source) Vitamin D deficiency, unspecified; Translations: [Avitaminosis D] Onset: 5 Chronic Open wounds of head; neck; and trunk (20 sources) Laceration of forehead; Translations: [Laceration without foreign body of other part of head, initial encounter] 11-12-2019 Episodic Osteoporosis (20 sources) Osteoporosis; Translations: [Age-related osteoporosis without current pathological fracture] Onset: 5 Chronic Other aftercare (20 sources) Long-term current use of anticoagulant; 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] 11-26-2021 Episodic Other aftercare (1 source) Anticoagulant effect; 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] Episodic Other circulatory disease (20 sources) Orthostatic hypotension; Translations: [Orthostatic hypotension] 11-11-2019 Episodic Other circulatory disease (20 sources) Hypotensive episode; Translations: [Hypotension, unspecified] 04-10-2020 Episodic Other circulatory disease (20 sources) Low blood pressure; Translations: [Hypotension, unspecified] Episodic Other circulatory disease (7 sources) Hypotension, unspecified; Translations: [Hypotension, unspecified] Episodic Other circulatory disease (11 sources) Transient hypotension; Translations: [Hypotension, unspecified] 05-15-2023 Episodic Other connective tissue disease (20 sources) Recurrent falls ; Translations: [Repeated falls] 04-18-2020 Episodic Other connective tissue disease (2 sources) Pain in right foot; Translations: [Pain in right foot] 11-08-2022 Episodic Other connective tissue disease (1 source) Muscle pain; Translations: [Myalgia, unspecified site] 05-24-2023 Episodic Other diseases of kidney and ureters (1 source) Disorder of kidney and ureter, unspecified; Translations: [Renal insufficiency] Onset: 4 Episodic Other endocrine disorders (20 sources) [place]'s disease; 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] Onset: 3 12-02-2021 Chronic Other endocrine disorders (20 sources) Hypoadrenalism; Translations: [Unspecified adrenocortical insufficiency] Onset: 4 Resolved: 5 Chronic Other endocrine disorders (14 sources) Primary adrenocortical insufficiency; Translations: [Glucocorticoid deficiency] Chronic Other endocrine disorders (2 sources) Unspecified adrenocortical insufficiency; Translations: [Adrenal hypofunction (HCC)] Onset: 4 Chronic Other endocrine disorders (1 source) Drug-induced adrenocortical insufficiency; 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)] Onset: 5 Chronic Other eye disorders (1 source) Conjunctival hemorrhage, left eye; Translations: [Subconjunctival hemorrhage of left eye] Onset: 5 Episodic Other eye disorders (1 source) Subconjunctival hemorrhage of left eye; Translations: [Conjunctival hemorrhage, left eye] 07-24-2024 Episodic Other gastrointestinal disorders (2 sources) Dark stools; Translations: [Other fecal abnormalities] 08-07-2024 Episodic Other hematologic conditions (7 sources) Other specified abnormalities of plasma proteins; Translations: [Other abnormal blood chemistry] Episodic Other nervous system disorders (20 sources) Disorder of autonomic nervous system; Translations: [Disorder of the autonomic nervous system, unspecified] Onset: 4 02-17-2015 Chronic Other nutritional; endocrine; and metabolic disorders (20 sources) Hypercalcemia; Translations: [Hypercalcemia] Onset: 0 Resolved: 4 04-22-2020 Chronic Other nutritional; endocrine; and metabolic disorders (3 sources) Hypercalcemia; Translations: [Hypercalcemia] Onset: 4 Chronic Other nutritional; endocrine; and metabolic disorders (2 sources) Body mass index 25-29 - overweight; Translations: [Overweight] 08-07-2024 Episodic Other screening for suspected conditions (not mental disorders or infectious disease) (5 sources) Imaging result abnormal; Translations: [Abnormal findings on diagnostic imaging of other specified body structures] Onset: 4 08-17-2023 Chronic Other screening for suspected conditions (not mental disorders or infectious disease) (20 sources) INR raised; Translations: [Abnormal coagulation profile] Episodic Other upper respiratory disease (20 sources) Chronic rhinitis; Translations: [Chronic rhinitis] Onset: 5 03-20-2014 Chronic Other upper respiratory disease (1 source) Chronic rhinitis; Translations: [Chronic nonallergic rhinitis] Onset: 5 Chronic Phlebitis; thrombophlebitis and thromboembolism (20 sources) Recurrent deep vein thrombosis; Translations: [Acute embolism and thrombosis of unspecified deep veins of unspecified lower extremity] Onset: 0 Resolved: 4 07-15-2021 Episodic Pulmonary heart disease (20 sources) H/O: pulmonary embolus; Translations: [Personal history of pulmonary embolism] Onset: 3 Episodic Residual codes; unclassified (1 source) Confusional state; Translations: [Disorientation, unspecified] 05-23-2023 Episodic Screening and history of mental health and substance abuse codes (2 sources) Patient encounter status; Translations: [Encounter for screening for depression] 01-23-2024 Episodic Septicemia (except in labor) (20 sources) Sepsis; Translations: [Sepsis, unspecified organism] 11-11-2019 Episodic Syncope (20 sources) Syncope and collapse; Translations: [Syncope and collapse] 11-21-2019 Episodic Thyroid disorders (20 sources) Non-toxic multinodular goiter; Translations: [Nontoxic multinodular goiter] Onset: 8 Resolved: 8 09-23-2017 Chronic Unclassified (1 source) Unknown / UNK(Unknown) Onset: 7 Unclassified (1 source) Radiology Review Onset: 4 Urinary tract infections (20 sources) Acute pyelonephritis; Translations: [Acute pyelonephritis] Onset: 1 11-11-2019 Episodic Past or Other Problems Problem Classification Problem Date Documented Date Episodic/Chronic Abdominal pain (20 sources) Upper abdominal pain; Translations: [Upper abdominal pain, unspecified] Onset: 03-10-2016 Resolved: 02-27-2017 02-27-2017 Episodic Acute myocardial infarction (20 sources) Non-ST elevation (NSTEMI) myocardial infarction; Translations: [Myocardial infarction] Onset: 01-17-2017 Resolved: 01-23-2024 06-09-2023 Chronic Allergic reactions (20 sources) Contact dermatitis; Translations: [Unspecified contact dermatitis, unspecified cause] Resolved: 07-18-2008 07-18-2008 Episodic Asthma (20 sources) Asthma; Translations: [Unspecified asthma, uncomplicated] Onset: 09-21-2005 Resolved: 07-18-2008 05-24-2023 Chronic Biliary tract disease (20 sources) Gallstone; Translations: [Calculus of gallbladder without cholecystitis without obstruction] Onset: 03-06-2016 Resolved: 08-24-2016 08-24-2016 Episodic Cancer of stomach (20 sources) Gastrointestinal stromal tumor of stomach; Translations: [Gastrointestinal stromal tumor of stomach] Onset: 08-26-2009 Resolved: 12-30-2009 12-30-2009 Chronic Deficiency and other anemia (20 sources) Anemia; Translations: [Anemia, unspecified] Onset: 08-26-2009 Resolved: 09-09-2012 09-09-2012 Episodic Fracture of lower limb (20 sources) Closed fracture of right foot; Translations: [Unspecified fracture of right foot, initial encounter for closed fracture] Onset: 03-22-2023 Resolved: 07-24-2024 11-08-2022 Episodic Genitourinary symptoms and ill-defined conditions (2 sources) Increased frequency of urination; Translations: [Frequency of micturition] Onset: 12-28-2023 05-24-2023 Episodic Noninfectious gastroenteritis (20 sources) Collagenous colitis; Translations: [Collagenous colitis] Onset: 03-30-2010 Resolved: 03-03-2011 03-03-2011 Chronic Noninfectious gastroenteritis (20 sources) Chronic diarrhea; Translations: [Noninfective gastroenteritis and colitis, unspecified] Onset: 03-15-2010 Resolved: 03-03-2011 03-03-2011 Episodic Other aftercare (3 sources) 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; Translations: [Long-term (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] Onset: 03-22-2024 Episodic Other and unspecified benign neoplasm (20 sources) Benign neoplasm of colon; Translations: [Benign neoplasm of colon, unspecified] Onset: 04-26-2005 Resolved: 01-23-2024 12-11-2009 Episodic Other and unspecified benign neoplasm (20 sources) History of polyp of colon; Translations: [Personal history of colonic polyps] Onset: 03-10-2016 Resolved: 02-27-2017 02-27-2017 Episodic Other bone disease and musculoskeletal deformities (20 sources) Osteopenia; Translations: [Other specified disorders of bone density and structure, unspecified site] Onset: 11-13-2013 Resolved: 06-30-2023 03-13-2019 Episodic Other connective tissue disease (20 sources) Muscle weakness; Translations: [Muscle weakness (generalized)] Onset: 05-08-2020 Resolved: 06-30-2023 05-27-2020 Episodic Other diseases of kidney and ureters (20 sources) Renal impairment; Translations: [Disorder resulting from impaired renal tubular function, unspecified] Onset: 04-26-2005 Resolved: 07-18-2008 07-18-2008 Chronic Other diseases of kidney and ureters (20 sources) Renal mass; Translations: [Other specified disorders of kidney and ureter] Onset: 03-28-2009 Resolved: 08-26-2009 08-26-2009 Chronic Other hematologic conditions (20 sources) Raised cardiac enzyme or marker; Translations: [Other specified abnormalities of plasma proteins] Onset: 04-25-2009 Resolved: 08-26-2009 Episodic Other lower respiratory disease (20 sources) Nodule of lung; Translations: [Solitary pulmonary nodule] Onset: 06-08-2023 Resolved: 02-22-2024 07-05-2023 Episodic Other lower respiratory disease (1 source) Solitary pulmonary nodule; Translations: [Nodule of lower lobe of right lung] Onset: 07-05-2023 Episodic Other nervous system disorders (20 sources) Abnormal gait; Translations: [Unspecified abnormalities of gait and mobility] Onset: 03-28-2023 Resolved: 01-23-2024 03-28-2023 Episodic Other non-traumatic joint disorders (20 sources) Hip pain; Translations: [Pain in unspecified hip] Onset: 11-01-2022 Resolved: 06-30-2023 Episodic Pathological fracture (20 sources) Pathological fracture due to osteoporosis; Translations: [Age-related osteoporosis with current pathological fracture, unspecified site, subsequent encounter for fracture with routine healing] Onset: 01-19-2023 01-19-2023 Episodic Prolapse of female genital organs (20 sources) Midline cystocele; Translations: [Cystocele, midline] Onset: 07-23-2007 Resolved: 02-27-2017 02-27-2017 Chronic Unclassified (20 sources) SUMMARY Onset: 04-25-2009 Resolved: 08-26-2009 08-26-2009 Results Test Name Value Interpretation Reference Range Facility Absolute lymphocyte countOrd ered By: Obinnamorales Frye on 08-07-2024 Lymphocytes Auto (Unsp spec) [#/Vol] 2.26 10*3/uL 0.83-4.51 [facility] Absolute neutrophil countOrd ered By: Obinnamorales Frye on 08-07-2024 Neutrophils (Bld) [#/Vol] 10.8 10*3/uL High 2.0-7.7 [facility] Anion gap in Serum or Plasma Ordered By: Obinna Frye on 08-07-2024 Anion gap [Moles/Vol] 15 mmol/L 5-15 [facility] Automated lymphocyte count a s percentage of total leukocytesOrdered By: Obinnamorales Frye on 08-07-2024 Lymphocytes/100 WBC Auto (Unsp spec) 15.0 % Low 19-41 [facility] BUN/creatinine ratioOrdered By: Obinnamorales Frye on 08-07-2024 Urea nitrogen/Creatinine [Mass ratio] 27.3 mg/mg High 10-20 [facility] Basophil percentageOrdered B y: Obinna Frye on 08-07-2024 Basophils/100 WBC (Bld) 0.9 % 0-1 [facility] Bilirubin Test strip Ql (U)O rdered By: Obinnamorales Frye on 08-07-2024 Bilirubin Ql (U) Negative Negative [facility] Bilirubin, totalOrdered By: Obinna Frye on 08-07-2024 Bilirubin [Mass/Vol] 0.52 mg/dL 0.00-1.30 [facility] Carbon dioxide, total [Moles /volume] in Central venous bloodOrdered By: Obinna Frye on 08-07-2024 CO2 [Moles/Vol] 14.6 mmol/L Low 21.0-32.0 [facility] Chloride assayOrdered By: Shashank Frye on 08-07-2024 Chloride [Moles/Vol] 107 mmol/L 98-108 [facility] Eosinophil percentageOrdered By: Obinnamorales Frye on 08-07-2024 Eosinophils/100 WBC (Bld) 1.1 % 0-5 [facility] Erythrocyte distribution wid th ratioOrdered By: Obinna Frye on 08-07-2024 Erythrocyte distribution width (RBC) [Ratio] 15.6 % High 11.6-14.6 [facility] Erythrocyte distribution wid th standard deviationOrdered By: Obinnamorales Frye on 08-07-2024 Erythrocyte distribution width (RBC) [Ratio] 52.4 fl High 35.1-43.9 [facility] Glomerular filtration rate ( GFR) estimation/1.73 sq m using serum, plasma, or whole bOrdered By: Obinna Frye on 08-07-2024 GFR/1.73 sq M.predicted among non-blacks MDRD (S/P/Bld) [Vol rate/Area] 32 mL/min/{1.73_m2} Low >60 [facility] Comment on above: mL/min/1.73m2 CKD-EP I Creatinine Equation (2020) Hematocrit Auto (Bld) [Volum e fraction]Ordered By: Oibnna Frye on 08-07-2024 Hematocrit (Bld) [Volume fraction] 46.5 % 37-47 [facility] Hemoglobin measurementOrdere d By: Obinna Frye on 08-07-2024 Hemoglobin (Bld) [Mass/Vol] 15.2 g/dL High 12.0-15.0 [facility] Immature granulocytes/100 WB C Auto (Bld)Ordered By: Obinna Frye on 08-07-2024 Immature granulocytes/100 WBC (Bld) 1.600 % High 0.0-0.9 [facility] Comment on above: IG% - Immature Granu locytes (promyelocytes, myelocytes and metamyelocytes) > 1% indicates that a LEFT SHIFT is Present. International normalized rat io (INR) calculationOrdered By: Sadia Brizuela on 08-07-2024 INR Coag (Bld) [Relative time] 1.1 {INR} [facility] Iron measurement (mass/mass) Ordered By: Sadia Brizuela on 08-07-2024 Iron (Unsp spec) [Mass/Mass] 55 ug/dL 50-170 [facility] Ketones Test strip Ql (U)Ord ered By: Obinnamorales Frye on 08-07-2024 Ketones Ql (U) Negative Negative [facility] Laboratory - Chemistry and C hemistry - challengeOrdered By: Obinnamorales Frye on 08-07-2024 AST [Catalytic activity/Vol] 27 U/L <32 [facility] Comment on above: Hemolysis present, R esults could be affected. MCV (mean corpuscular volume ) determinationOrdered By: Obinna Frye on 08-07-2024 MCV (RBC) [Entitic vol] 91.0 fL 81-99 [facility] Mean corpuscular hemoglobin (MCH) determinationOrdered By: Obinnamorales Frye on 08-07-2024 MCH (RBC) [Entitic mass] 29.7 pg 27.0-32.0 [facility] Mean corpuscular hemoglobin concentration (MCHC) determinationOrdered By: Obinnamorales Frye on 08-07-2024 MCHC (RBC) [Mass/Vol] 32.7 g/dL 32-36 [facility] Mean platelet volume determi nationOrdered By: Obinnamorales Frye on 08-07-2024 Platelet mean volume (Bld) [Entitic vol] 11.9 fL 6.2-12.0 [facility] Microscopic analysis of urin e for red blood cells (RBC)Ordered By: Obinna Frye on 08-07-2024 Microscopic analysis of urine for red blood cells (RBC) 0-5 SEEN /hpf 0-5 [facility] Monocyte percentageOrdered B y: Obinna Frye on 08-07-2024 Monocytes/100 WBC (Bld) 9.7 % 0-10 [facility] Mucus LM Ql (Urine sed)Order ed By: Obinna Frye on 08-07-2024 Mucus Ql (Urine sed) 0 SEEN /hpf [facility] Neutrophil percentageOrdered By: Obinna Frye on 08-07-2024 Neutrophils/100 WBC (Bld) 71.7 % High 47-70 [facility] Nitrite Test strip Ql (U)Ord ered By: Obinna Frye on 08-07-2024 Nitrite Ql (U) Positive High Negative [facility] No Panel InformationOrdered By: Sadia Brizuela on 08-07-2024 Unsaturated Iron Binding Capacity 240 ug/dL 228-428 [facility] Comment on above: Hemolysis present, R esults could be affected. Nucleated red blood cell per centageOrdered By: Obinna Frye on 08-07-2024 Nucleated RBC/100 WBC (Bld) [Ratio] 0 % 0-5 [facility] Platelet countOrdered By: Shashank Frye on 08-07-2024 Platelets (Bld) [#/Vol] 193 10*3/uL 150-450 [facility] Potassium measurement (mass/ volume)Ordered By: Obinna Frye on 08-07-2024 Potassium (Unsp spec) [Mass/Vol] 4.5 mmol/L 3.3-5.1 [facility] Comment on above: Hemolysis present, R esults could be affected. Protein Test strip Ql (U)Ord ered By: Obinna Frye on 08-07-2024 Protein Ql (U) 30 mg/dl High Negative [facility] Prothrombin timeOrdered By: Sadia Brizuela on 08-07-2024 PT Coag (PPP) [Time] 14.9 s 11.7-14.9 [facility] RBC Auto (Bld) [#/Vol]Ordere d By: Obinna Frye on 08-07-2024 RBC (Bld) [#/Vol] 5.11 10*6/uL 4.2-5.4 [facility] Serum creatinine measurement (mass/volume)Ordered By: Obinna Frye on 08-07-2024 Creatinine [Mass/Vol] 1.59 mg/dL High 0.70-1.20 [facility] Serum globulin measurementOr dered By: Obinna Frye on 08-07-2024 Globulin (S) [Mass/Vol] 2.2 g/dL 2.2-4.2 [facility] Serum glucose measurement (m ass/volume)Ordered By: Obinna Frye on 08-07-2024 Glucose [Mass/Vol] 139 mg/dL High 70-99 [facility] Serum or plasma alanine evans otransferase (ALT) measurementOrdered By: Obinna Frye on 08-07-2024 ALT [Catalytic activity/Vol] 20 U/L <35 [facility] Serum or plasma albumin scott urement (mass/volume)Ordered By: Obinna Frye on 08-07-2024 Albumin [Mass/Vol] 4.1 g/dL 3.4-4.8 [facility] Serum or plasma albumin/glob ulin mass ratioOrdered By: Obinnamorales Frye on 08-07-2024 Albumin/Globulin [Mass ratio] 1.8 {ratio} 0.9-2.4 [facility] Serum or plasma alkaline bárbara sphatase measurementOrdered By: Obinna Frye on 08-07-2024 ALP [Catalytic activity/Vol] 102 U/L 35-104 [facility] Serum or plasma calcium scott urement (mass/volume)Ordered By: Obinna Frye on 08-07-2024 Calcium [Mass/Vol] 9.9 mg/dL 7.6-11.0 [facility] Serum or plasma cortisol marely surement (mass/volume)Ordered By: Sadia Brizuela on 08-07-2024 Cortisol [Mass/Vol] 12.00 ug/dL High 2.68-10.50 [facility] Serum or plasma ferritin marely surement (mass/volume)Ordered By: Sadia Brizuela on 08-07-2024 Ferritin [Mass/Vol] 107 ng/mL 22-378 [facility] Serum or plasma iron saturat ion measurement (mass fraction)Ordered By: Sadia Brizuela on 08-07-2024 Iron saturation [Mass fraction] 19.0 % 13-59 [facility] Serum or plasma urea nitroge n measurement (mass/volume)Ordered By: Obinna Frye on 08-07-2024 Urea nitrogen [Mass/Vol] 43 mg/dL High 4-19 [facility] Sodium levelOrdered By: Obinna Frye on 08-07-2024 Sodium [Moles/Vol] 137 mmol/L 133-145 [facility] Squamous epithelial cells de tection in urine sediment by light microscopyOrdered By: Obinna Frye on 08-07-2024 Epithelial cells.squamous LM Ql (Urine sed) 0 SEEN /hpf 5-10 [facility] TSH DL <= 0.005 mIU/L QnOrde red By: Sadia Brizuela on 08-07-2024 TSH Qn 1.030 uIU/mL 0.300-4.200 [facility] Total proteinOrdered By: Obinna Frye on 08-07-2024 Protein [Mass/Vol] 6.3 g/dL 5.9-8.4 [facility] Troponin T.cardiac [Mass/vol ume] in Serum or Plasma by High sensitivity methodOrdered By: Obinna Frye on 08-07-2024 Troponin T.cardiac High sensitivity method [Mass/Vol] 55 ng/L High <14 [facility] Comment on above: Critical Result(s) C alled at: 1847 by: TOY BUNCH TO NAKIA DE LA TORRE Results read back by same. Troponin T.cardiac High sensitivity method [Mass/Vol] 60 ng/L High <14 [facility] Comment on above: Critical Result(s) C alled at: 1736 by: TOY BUNCH TO JOHN IBARRA Results read back by same. Urine clarityOrdered By: Obinna Frye on 08-07-2024 Clarity (U) Clear Clear [facility] Urine color determinationOrd ered By: Obinna Frye on 08-07-2024 Color (U) Yellow Yellow [facility] Urine glucose detectionOrder ed By: Obinna Frye on 08-07-2024 Glucose Ql (U) Normal mg/dl Normal [facility] Urine leukocyte esterase det ection by dipstickOrdered By: Obinna Frye on 08-07-2024 Leukocyte esterase Test strip Ql (U) 25 /ul High Negative [facility] Urine pHOrdered By: Obinna nielsen on 08-07-2024 pH (U) 6.0 [pH] 5.0 - 8.0 [facility] Urine sediment bacteria coun t by microscopy (number/high power field)Ordered By: Obinna Frye on 08-07-2024 Bacteria LM.HPF (Urine sed) [#/Area] 3 /[HPF] None Seen [facility] Urine specific gravity measu rementOrdered By: Obinnamorales Frye on 08-07-2024 Specific gravity (U) [Rel density] 1.015 1.002-1.030 [facility] Urine urobilinogen measureme ntOrdered By: Obinnamorales Frye on 08-07-2024 Urobilinogen Ql (U) Normal mg/dl Normal [facility] White blood cell (WBC) count Ordered By: Obinna Frye on 08-07-2024 WBC (Bld) [#/Vol] 15.1 10*3/uL High 4.4-11.0 [facility] White blood cell countOrdere d By: Obinnamorales Frye on 08-07-2024 White blood cell count 5-10 SEEN /hpf 0-5 [facility] Anion gap in Serum or Plasma Ordered By: Jordan Marte on 08-05-2024 Anion gap [Moles/Vol] 12 mmol/L 5-15 [facility] BUN/creatinine ratioOrdered By: [place] Estuardo on 08-05-2024 Urea nitrogen/Creatinine [Mass ratio] 23.7 mg/mg High 10-20 [facility] Basic Metabolic Profile (BMP )on 08-05-2024 BUN/CRE 23.7 RATIO High 10-20 [facility] Comment on above: Performed By: #### L 300.3900, L500.2500 #### [facility] Laboratory [address] [place], [address] Calcium [Mass/Vol] 9.8 mg/dL Normal 7.6-11.0 [facility] Comment on above: Performed By: #### L 300.3900, [id number] #### [facility] [address] [place], [address] Chloride [Moles/Vol] 111 mmol/L High 98-108 [facility] Comment on above: Performed By: #### L 300.3900, [id number] #### [facility] [address] [place], [address] CO2 [Moles/Vol] 17.0 mmol/L Low 21.0-32.0 [facility] Comment on above: Performed By: #### L 300.3900, [id number] #### [facility] [address] [place], [address] Creatinine [Mass/Vol] 1.55 mg/dL High 0.70-1.20 [facility] Comment on above: Performed By: #### L 300.3900, [id number] #### [facility] [address] [place], [address] ECRCL 25.41 ml/min Low 50-250 [facility] Comment on above: Performed By: #### L [id number], [id number] #### [facility] [address] [place], [address] GAP 12 Normal 5-15 [facility] Comment on above: Performed By: #### L 300.3900, [id number] #### [facility] [address] [place], [address] GFR/1.73 sq M.predicted among non-blacks MDRD (S/P/Bld) [Vol rate/Area] 33 mL/min/{1.73_m2} Low >60 [facility] Comment on above: Result Comment: mL/m in/1.73m2 CKD-EPI Creatinine Equation (2020) Performed By: #### L 300.3900, [id number] #### [facility] [address] [place], [address] Glucose [Mass/Vol] 96 mg/dL Normal 70-99 [facility] Comment on above: Performed By: #### L 300.3900, [id number] #### [facility] [address] [place], [address] Potassium [Moles/Vol] 4.5 mmol/L Normal 3.3-5.1 [facility] Comment on above: Result Comment: Hemo lysis present, Results??could be affected. ?? Performed By: #### L 300.3900, [id number] #### [facility] [address] [place], [address] Sodium [Moles/Vol] 140 mmol/L Normal 133-145 [facility] Comment on above: Performed By: #### L [id number], [id number] #### [facility] [address] [place], [address] Urea nitrogen [Mass/Vol] 37 mg/dL High 4-19 [facility] Comment on above: Performed By: #### L 300.3900, [id number] #### [facility] [address] [place], [address] Carbon dioxide, total [Moles /volume] in Central venous bloodOrdered By: Jordan Marte on 08-05-2024 CO2 [Moles/Vol] 17.0 mmol/L Low 21.0-32.0 [facility] Chloride assayOrdered By: Jorge L Marte on 08-05-2024 Chloride [Moles/Vol] 111 mmol/L High 98-108 [facility] Glomerular filtration rate ( GFR) estimation/1.73 sq m using serum, plasma, or whole bOrdered By: Jordan Marte on 08-05-2024 GFR/1.73 sq M.predicted among non-blacks MDRD (S/P/Bld) [Vol rate/Area] 33 mL/min/{1.73_m2} Low >60 [facility] Comment on above: mL/min/1.73m2 CKD-EP I Creatinine Equation (2020) International normalized rat io (INR) calculationOrdered By: Jordan Marte on 08-05-2024 INR Coag (Bld) [Relative time] 1.0 {INR} [facility] Potassium measurement (mass/ volume)Ordered By: Jordan Marte on 08-05-2024 Potassium (Unsp spec) [Mass/Vol] 4.5 mmol/L 3.3-5.1 [facility] Comment on above: Hemolysis present, R esults could be affected. Prothrombin Time w/INRon INR Coag (PPP) [Relative time] 1.0 {INR} Normal [facility] Comment on above: Performed By: #### L 300.3900, [id number] #### [facility] [address] [place], [address] PT Coag (PPP) [Time] 13.1 s Normal 11.7-14.9 [facility] Comment on above: Performed By: #### L 300.3900, [id number] #### [facility] [address] [place], [address] Prothrombin timeOrdered By: Jordan Marte on 08-05-2024 PT Coag (PPP) [Time] 13.1 s 11.7-14.9 [facility] Serum creatinine measurement (mass/volume)Ordered By: Jordan Marte on 08-05-2024 Creatinine [Mass/Vol] 1.55 mg/dL High 0.70-1.20 [facility] Serum glucose measurement (m ass/volume)Ordered By: Jordan Marte on 08-05-2024 Glucose [Mass/Vol] 96 mg/dL 70-99 [facility] Serum or plasma calcium scott urement (mass/volume)Ordered By: Jordan Marte on 08-05-2024 Calcium [Mass/Vol] 9.8 mg/dL 7.6-11.0 [facility] Serum or plasma urea nitroge n measurement (mass/volume)Ordered By: Jordan Marte on 08-05-2024 Urea nitrogen [Mass/Vol] 37 mg/dL High 4-19 [facility] Sodium levelOrdered By: Jarocho Marte on 08-05-2024 Sodium [Moles/Vol] 140 mmol/L 133-145 [facility] CNOVon 07-24-2024 CNOV Office Visit (INTMWS ) -------- LINDA PERALTA ([id number]) 1945 F Date Time Provider Department 07/24/24 11:00 AM AMOS FLOYD INTMWS During your visit today, we recorded the following information about you: Pulse Respiration Blood pressure Weight 80/minute 20/minute 126/82 65.8 kg Amos Floyd MD 07/24/2024 12:45 PM Signed This note was created using [employer]. Subjective Linda Peralta is a 79 year old female. 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 Patient/authorized brewery representative agreed to proceed Heart Murmur: - Under the care of Dr. Marte. - Recent TOMI performed; heart catheterization scheduled. - Denies headaches, dizziness, or chest pain. - Experiences dyspnea when walking quickly. - Taking warfarin; INR levels monitored by Dr. Marte's office, with recent levels around 2.2-2.3. - Reports recurrent subconjunctival hemorrhages, attributing them to warfarin use. Hypothyroidism: - Managed by Dr. Gregory; last visit was 1-2 weeks ago. Chronic Rhinitis: - Chronic clear rhinorrhea, worse recently. - Denies sneezing, itching, epistaxis, or seasonal variation. - Rhinorrhea occurs while eating. Fatigue: - Reports increased fatigue, attributing it to age. COVID-19 Vaccination: - No adverse reactions to previous COVID-19 vaccinations. Review of Systems Constitutional: Positive for fatigue. Negative for chills and fever. HENT: Positive for postnasal drip and rhinorrhea. Negative for congestion and sore throat. Eyes: Negative for pain and visual disturbance. Respiratory: Negative for cough and shortness of breath. Cardiovascular: Negative for chest pain, palpitations and leg swelling. Neurological: Negative for dizziness and headaches. 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 Thyroid nodule greater than or equal to 1 cm in diameter incidentally noted on imaging study, right side. Social History Tobacco Use Smoking status: Never Smokeless tobacco: Never Vaping Use Vaping status: Never Used Substance Use Topics Alcohol use: No Drug use: No Current Outpatient Medications Medication Sig Ascorbic Acid 1,000 mg tablet Take 1,000 mg by mouth daily at bedtime. lisinopril (ZESTRIL) 5 mg tablet Take 1 tablet by mouth every afternoon. Methenamine Hippurate (HIPREX) 1 gram tablet Take 1 g by mouth daily at bedtime. simvastatin (ZOCOR) 20 mg tablet Take 1 tablet by mouth daily at bedtime. amLODIPine (NORVASC) 5 mg tablet Take 10 mg by mouth once daily. nitroglycerin sublingual (NITROQUICK) 0.4 mg SL tablet Dissolve 1 tablet under the tongue every 5 minutes as needed. warfarin (COUMADIN) 2.5 mg tablet Take 2.5 mg by mouth. 2.5 mg daily except 5 mg on Mondays acetaminophen (TYLENOL) 325 mg tablet Take 650 mg by mouth every 6 hours as needed. ipratropium bromide (ATROVENT) 42 mcg (0.06 %) nasal spray Use 2 sprays in the nose four times daily. hydrocortisone (CORTEF) 10 mg tablet Take 2 tablets by mouth every morning AND 1 tablet every evening. As directed per endocrinology.. No current facility-administered medications for this visit. Objective BP 126/82 Pulse 80 Resp 20 Wt 65.8 kg (145 lb 1 oz) BMI 26.53 kg/m? Physical Exam Constitutional: General: She is not in acute distress. Appearance: She is not ill-appearing. HENT: Nose: Rhinorrhea present. Mouth/Throat: Mouth: Mucous membranes are moist. Pharynx: Oropharynx is clear. Eyes: Extraocular Movements: Extraocular movements intact. Conjunctiva/sclera: Left eye: Hemorrhage present. No exudate. Cardiovascular: Rate and Rhythm: Rhythm irregular. Heart sounds: S1 normal and S2 normal. Murmur (at base) heard. Systolic murmur is present with a grade of 2/6. Abdominal: Tenderness: There is no abdominal tenderness. Musculoskeletal: Right lower leg: No edema. Left lower leg: No edema. Neurological: General: No focal deficit present. Mental Status: She is alert. Gait: Gait normal. Assessment and Plan 1. ASHD (arteriosclerotic heart disease) - ICD9: 414.00, ICD10: I25.10 (primary diagnosis) - For heart cath per Dr. Marte. 2. Primary hypertension - ICD9: 401.9, ICD10: I10 - Controlled - Continue current medications 3. Nonrheumatic aortic valve stenosis - ICD9: 424.1, ICD10: I35.0 - Evelia (more content not included)... Normal [facility] Absolute lymphocyte countOrd ered By: Jordan Marte on 07-23-2024 Lymphocytes Auto (Unsp spec) [#/Vol] 1.15 10*3/uL 0.83-4.51 [facility] Absolute neutrophil countOrd ered By: Jordan Marte on 07-23-2024 Neutrophils (Bld) [#/Vol] 8.1 10*3/uL High 2.0-7.7 [facility] Activated partial thrombopla stin time (aPTT) in platelet poor plasma by coagulation aOrdered By: Jordan Marte on 07-23-2024 aPTT Coag (PPP) [Time] 33.9 s 24.1-36.2 [facility] Automated lymphocyte count a s percentage of total leukocytesOrdered By: Jordan Marte on 07-23-2024 Lymphocytes/100 WBC Auto (Unsp spec) 11.0 % Low 19-41 [facility] Basic Metabolic Profile (BMP )on 07-23-2024 BUN/CRE 28.1 RATIO High 10-20 [facility] Comment on above: Order Comment: Do al chris with PT/INR in 1 week Performed By: #### L 300.3900, L500.2500 #### [facility] [address] [place], [address] Calcium [Mass/Vol] 10.4 mg/dL Normal 7.6-11.0 [facility] Comment on above: Order Comment: Do al chris with PT/INR in 1 week Performed By: #### L 300.3900, L500.2500 #### [facility] [address] [place], [address] Chloride [Moles/Vol] 108 mmol/L Normal 98-108 [facility] Comment on above: Order Comment: Do al chris with PT/INR in 1 week Performed By: #### L 300.3900, L500.2500 #### [facility] [address] [place], [address] CO2 [Moles/Vol] 21.6 mmol/L Normal 21.0-32.0 [facility] Comment on above: Order Comment: Do al chris with PT/INR in 1 week Performed By: #### L 300.3900, L500.2500 #### [facility] [address] [place], [address] Creatinine [Mass/Vol] 1.60 mg/dL High 0.70-1.20 [facility] Comment on above: Order Comment: Do al chris with PT/INR in 1 week Performed By: #### L 300.3900, L500.2500 #### [facility] [address] [place], [address] GAP 12 Normal 5-15 [facility] Comment on above: Order Comment: Do al chris with PT/INR in 1 week Performed By: #### L 300.3900, L500.2500 #### [facility] [address] [place], [address] GFR/1.73 sq M.predicted among non-blacks MDRD (S/P/Bld) [Vol rate/Area] 32 mL/min/{1.73_m2} Low >60 [facility] Comment on above: Order Comment: Do al chris with PT/INR in 1 week Result Comment: mL/m in/1.73m2 CKD-EPI Creatinine Equation (2020) Performed By: #### L 300.3900, L500.2500 #### [facility] [address] [place], [address] Glucose [Mass/Vol] 93 mg/dL Normal 70-99 [facility] Comment on above: Order Comment: Do al chris with PT/INR in 1 week Performed By: #### L 300.3900, L500.2500 #### [facility] [address] [place], [address] Potassium [Moles/Vol] 5.1 mmol/L Normal 3.3-5.1 [facility] Comment on above: Order Comment: Do al chris with PT/INR in 1 week Result Comment: Hemo lysis present, Results??could be affected. ?? Performed By: #### L 300.3900, L500.2500 #### [facility] [address] [place], [address] Sodium [Moles/Vol] 142 mmol/L Normal 133-145 [facility] Comment on above: Order Comment: Do al chris with PT/INR in 1 week Performed By: #### L 300.3900, L500.2500 #### [facility] [address] [place], [address] Urea nitrogen [Mass/Vol] 45 mg/dL High 4-19 [facility] Comment on above: Order Comment: Do al chris with PT/INR in 1 week Performed By: #### L 300.3900, L500.2500 #### [facility] [address] [place], [address] Basophil percentageOrdered B y: [place] Estuardo on 07-23-2024 Basophils/100 WBC (Bld) 0.4 % 0-1 [facility] CBC W/Diff, Automatedon Absolute Lymph 1.15 X10 3/uL Normal 0.83-4.51 [facility] Comment on above: Performed By: #### L 300.3900, L500.2500 #### [facility] [address] [place], [address] Absolute Neut 8.1 X10 3/uL High 2.0-7.7 [facility] Comment on above: Performed By: #### L 300.3900, L500.2500 #### [facility] [address] [place], [address] Basophils/100 WBC (Bld) 0.4 % Normal 0-1 [facility] Comment on above: Performed By: #### L 300.3900, L500.2500 #### [facility] [address] [place], [address] Eosinophils/100 WBC (Bld) 0.9 % Normal 0-5 [facility] Comment on above: Performed By: #### L 300.3900, L500.2500 #### [facility] [address] [place], [address] Erythrocyte distribution width (RBC) [Ratio] 15.7 % High 11.6-14.6 [facility] Comment on above: Performed By: #### L 300.3900, L500.2500 #### [facility] [address] [place], [address] Hematocrit (Bld) [Volume fraction] 50.1 % High 37-47 [facility] Comment on above: Performed By: #### L 300.3900, L500.2500 #### [facility] [address] [place], [address] Hemoglobin (Bld) [Mass/Vol] 16.3 g/dL High 12.0-15.0 [facility] Comment on above: Performed By: #### L 300.3900, L500.2500 #### [facility] [address] [place], [address] IG% 0.900 Normal 0.0-0.9 [facility] Comment on above: Result Comment: IG% - Immature Granulocytes (promyelocytes, myelocytes and metamyelocytes) > 1% indicates that a LEFT SHIFT is Present. Performed By: #### L 300.3900, L500.2500 #### [facility] [address], [address] Lymphocytes/100 WBC (Bld) 11.0 % Low 19-41 [facility] Comment on above: Performed By: #### L 300.3900, L500.2500 #### [facility] [address] [place], [address] MCH (RBC) [Entitic mass] 29.9 pg Normal 27.0-32.0 [facility] Comment on above: Performed By: #### L 300.3900, L500.2500 #### [facility] [address] [place], [address] MCHC (RBC) [Mass/Vol] 32.5 g/dL Normal 32-36 [facility] Comment on above: Performed By: #### L 300.3900, L500.2500 #### [facility] [address] [place], [address] MCV (RBC) [Entitic vol] 91.9 fL Normal 81-99 [facility] Comment on above: Performed By: #### L 300.3900, L500.2500 #### [facility] [address] [place], [address] Monocytes/100 WBC (Bld) 9.0 % Normal 0-10 [facility] Comment on above: Performed By: #### L 300.3900, L500.2500 #### [facility] [address] [place], [address] Neutrophils/100 WBC (Bld) 77.8 % High 47-70 [facility] Comment on above: Performed By: #### L 300.3900, L500.2500 #### [facility] [address] [place], [address] Nucleated RBC (Bld) [#/Vol] 0 10*3/uL Normal 0-5 [facility] Comment on above: Performed By: #### L 300.3900, L500.2500 #### [facility] [address] [place], [address] Platelet mean volume (Bld) [Entitic vol] 11.8 fL Normal 6.2-12.0 [facility] Comment on above: Performed By: #### L 300.3900, L500.2500 #### [facility] [address] [place], [address] Platelets (Bld) [#/Vol] 222 10*3/uL Normal 150-450 [facility] Comment on above: Performed By: #### L 300.3900, L500.2500 #### [facility] [address] [place], [address] RBC (Bld) [#/Vol] 5.45 10*6/uL High 4.2-5.4 [facility] Comment on above: Performed By: #### L 300.3900, L500.2500 #### [facility] [address] [place], [address] RDW SD 52.5 fl High 35.1-43.9 [facility] Comment on above: Performed By: #### L 300.3900, L500.2500 #### [facility] [address] [place], [address] WBC (Bld) [#/Vol] 10.5 10*3/uL Normal 4.4-11.0 [facility] Comment on above: Performed By: #### L 300.3900, L500.2500 #### [facility] [address] [place], [address] Cardiology Visit Reporton Cardiology Visit Report [facility] [address] [place], [place] [address] OFFICE VISIT Date of Service: 07/23/24 MR#: [id number] Acct: [id number] Name: LINDA PERALTA Rep #: [id number] : 1945 Provider: PEDRO samuel Age/Sex: 79/F [place] [facility] Status: Signed HPI HPI History of Present Illness Surgical H P: Yes Details: Linda Peralat is an 79-year-old female who presents to office today for a cardiovascular follow-up visit. Patient has a history of NSTEMI in 2009 which was felt to be secondary to coronary embolism as a heart catheterization at that time did not demonstrate significant coronary artery disease. Patient also has a known history of hyperlipidemia, DVT, PE. Previous echo with mod-severe aortic stenosis. 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 She underwent a TOMI on 07/03/2024, which demonstrated moderate-severe aortic valve stenosis. From a cardiac standpoint, the patient is doing well. She denies any palpitations, chest pain, pressure or heaviness. She does have occasional SOB with exertion. She denies Orthopnea, and PND. She does not have bleeding issues; no blood in urine, stool, or nosebleeds. She does acknowledge a decrease in energy level. She denies myalgias, or claudication. She does not have edema, or sudden weight gain. She denies lightheadedness, dizziness, syncopal or near syncopal episodes, and headaches. 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 Is patient in pain?: No Allergies ciprofloxacin (From Cipro) Allergy (Verified 07/23/24 08:14) Rash Penicillins Allergy (Verified 07/23/24 08:14) Rash Medications ???Medication ???Instructions ???Recorded ???Confirmed ???Type acetaminophen 500 mg tablet 1,000 mg (2 x 500 mg) PO Q6H PRN 0 04/08/20 07/23/24 Rx Pain Score 1-10 denosumab 60 mg/mL subcutaneous 60 mg subcut [id number] #1 mL 07/23/24 Rx syringe (Prolia) hydrocortisone 10 mg tablet 20 mg (2 x 10 mg) PO DAILY@0600 07/23/24 Rx #90 tabs nitroglycerin 0.4 mg sublingual 0.4 mg sublingual Q5-15M PRN 07/2507/23/24 Rx tablet Cardiac/Chest Pain #25 tabs warfarin 2.5 mg tablet 2.5 mg PO DAILY@1700 #120 tabs 05/1407/23/24 Rx ascorbic acid (vitamin C) 1,000 mg 1 g PO QDAY 04/29/24 07/23/24 Hi story capsule methenamine hippurate 1 gram tablet 1 g PO QHS 04/29/24 07/23/24 Hi story lisinopril 5 mg tablet 5 mg PO QDAY #90 tabs 07/23/2405/14 Rx simvastatin 20 mg tablet 20 mg PO QHS #90 tabs 07/23/2405/14 Rx Ejection fraction %: 45 Have you fallen in the past year?: No Nurse's Note: heart cath august 05 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 Orthostatic hypotension 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, stage 3 [place] disease Essential (primary) hypertension Hyperlipidemia Recurrent deep vein thrombosis (DVT) History of non-ST elevation myocardial infarction (NSTEMI) (04/2009) Pyelonephritis Cystocele with rectocele History of DVT (deep vein thrombosis) Hypotension Surgical History (Reviewed 07/23/24 @ 12:37 by Heaven Bolton CERTIFIED PEER SPECIALIST, CERTIFIED PEER SPECIALIST-C) History of left heart catheterization (04/2009) History of left nephrectomy (2000) History of total abdominal hysterectomy History of bladder repair surgery H/O partial nephrectomy (2009) H/O total cystectomy Family History (Reviewed 07/23/24 @ 12:37 by Heaven Bolton CERTIFIED PEER SPECIALIST, CERTIFIED PEER SPECIALIST-C) Father CVA (cerebral vascular accident) Mother Myocardial infarction, Onset Age: 87 Other History of DVT (deep vein 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 Normal [facility] Chest PA and Lateralon 07-23 Chest PA and Lateral [facility] [address] [place] [id number] Chest PA and Lateral MR#: [id number] Acct: [id number] Name: LINDA PERALTA Rep #: [id number] : 1945 F 79 From: Yony Payton PCP: Dr. Amos Floyd MD Status: PRE [facility] [place] Study: Chest PA and Lateral Date of Exam: 07/23/24 Exam# [id number] Ordering Dr: Heaven Bolton NP CERTIFIED PEER SPECIALIST- C PROCEDURE: CHEST PA AND LATERAL 07/23/2024 REASON FOR EXAM: AORTIC VALVE STENOSIS-CARDIAC CATH TECHNIQUE: Frontal and lateral views of the chest. COMPARISON: 05/23/2023 FINDINGS: No focal consolidations. Mild pulmonary vascular congestion. Mild cardiomegaly. Atherosclerotic aortic arch. No pleural effusion or pneumothorax. Minimal multilevel compression deformities of the thoracic spine. RAD/Chest PA and Lateral IMPRESSION: No focal consolidations. Mild pulmonary vascular congestion. Mild cardiomegaly. Reading Location: [id number] CC: CERTIFIED PEER SPECIALIST-C Heaven Bolton; Dr. Amos Floyd MD Corporation Lawyer: Signed Normal [facility] Eosinophil percentageOrdered By: Jordan Marte on 07-23-2024 Eosinophils/100 WBC (Bld) 0.9 % 0-5 [facility] Erythrocyte distribution wid th ratioOrdered By: Jordan Marte on 07-23-2024 Erythrocyte distribution width (RBC) [Ratio] 15.7 % High 11.6-14.6 [facility] Erythrocyte distribution wid th standard deviationOrdered By: Jordan Marte on 07-23-2024 Erythrocyte distribution width (RBC) [Ratio] 52.5 fl High 35.1-43.9 [facility] Hematocrit Auto (Bld) [Volum e fraction]Ordered By: Jordan Marte on 07-23-2024 Hematocrit (Bld) [Volume fraction] 50.1 % High 37-47 [facility] Hemoglobin measurementOrdere d By: Jordan Marte on 07-23-2024 Hemoglobin (Bld) [Mass/Vol] 16.3 g/dL High 12.0-15.0 [facility] Immature granulocytes/100 WB C Auto (Bld)Ordered By: Jordan Marte on 07-23-2024 Immature granulocytes/100 WBC (Bld) 0.900 % 0.0-0.9 [facility] Comment on above: IG% - Immature Granu locytes (promyelocytes, myelocytes and metamyelocytes) > 1% indicates that a LEFT SHIFT is Present. MCV (mean corpuscular volume ) determinationOrdered By: Jordan Marte on 07-23-2024 MCV (RBC) [Entitic vol] 91.9 fL 81-99 [facility] Mean corpuscular hemoglobin (MCH) determinationOrdered By: Jordan Marte on 07-23-2024 MCH (RBC) [Entitic mass] 29.9 pg 27.0-32.0 [facility] Mean corpuscular hemoglobin concentration (MCHC) determinationOrdered By: Jordan Marte on 07-23-2024 MCHC (RBC) [Mass/Vol] 32.5 g/dL 32-36 [facility] Mean platelet volume determi nationOrdered By: Jordan Marte on 07-23-2024 Platelet mean volume (Bld) [Entitic vol] 11.8 fL 6.2-12.0 [facility] Monocyte percentageOrdered B y: [place] Estuardo on 07-23-2024 Monocytes/100 WBC (Bld) 9.0 % 0-10 [facility] Neutrophil percentageOrdered By: [place] Estuardo on 07-23-2024 Neutrophils/100 WBC (Bld) 77.8 % High 47-70 [facility] Nucleated red blood cell per centageOrdered By: [place] Estuardo on 07-23-2024 Nucleated RBC/100 WBC (Bld) [Ratio] 0 % 0-5 [facility] Partial Thromboplast Timeon 07-23-2024 aPTT Coag (Bld) [Time] 33.9 s Normal 24.1-36.2 [facility] Comment on above: Performed By: #### L 300.3900, L500.2500 #### [facility] [address] [place], [address] Platelet countOrdered By: Cy ril Estuardo on 07-23-2024 Platelets (Bld) [#/Vol] 222 10*3/uL 150-450 [facility] Prothrombin Time w/INRon INR Coag (PPP) [Relative time] 2.4 {INR} Normal [facility] Comment on above: Performed By: #### L 300.3900, L500.2500 #### [facility] [address] [place], [address] PT Coag (PPP) [Time] 26.4 s High 11.7-14.9 [facility] Comment on above: Performed By: #### L 300.3900, L500.2500 #### [facility] [address] [place], [address] RBC Auto (Bld) [#/Vol]Ordere d By: [place] Estuardo on 07-23-2024 RBC (Bld) [#/Vol] 5.45 10*6/uL High 4.2-5.4 [facility] White blood cell (WBC) count Ordered By: [place] Estuardo on 07-23-2024 WBC (Bld) [#/Vol] 10.5 10*3/uL 4.4-11.0 [facility] Nurse Visit (FAMPWS) -------- CORINNA Hermes ([id number]) 1945 F Date Time Provider Department 07/10/24 9:15 AM [place] [facility] your visit today, we recorded the following information about you: DESIRAE ARZOLA 07/10/2024 9:03 AM Signed Patient presents for Prolia injection. Denies any problems at this time. Patient instructed on any SE of medication, verbalized understanding and agreed to proceed with treatment. Tolerated injection well. Desirae Arzola LPN Allergies As of Date: 07/10/2024 Noted Allergy Reaction CIPRO (CIPROFLOXACIN) 07/22/2009 Comments: rash with 500mg dose PENICILLINS 06/17/2002 Comments: rash Date Reviewed: 01/23/2024 Reviewed by: Isha Wright LPN - Fully Assessed Reason for Visit: Imm/Inj [58] Primary Visit Diagnosis:Age-related osteoporosis with current pathological fracture with routine healing [M80.00XD] Prescriptions as of 07/10/2024 - Ascorbic Acid 1,000 mg tablet Take 1,000 mg by mouth daily at bedtime. - lisinopril (ZESTRIL) 5 mg tablet Take 1 tablet by mouth every afternoon. - Methenamine Hippurate (HIPREX) 1 gram tablet Take 1 g by mouth daily at bedtime. - simvastatin (ZOCOR) 20 mg tablet Take 1 tablet by mouth daily at bedtime. - hydrocortisone (CORTEF) 10 mg tablet Take 3 tablets by mouth once daily. As directed per endocrinology. - amLODIPine (NORVASC) 5 mg tablet Take 10 mg by mouth once daily. - pantoprazole DR (PROTONIX) 40 mg tablet Take 1 tablet by mouth daily at 6 am. - nitroglycerin sublingual (NITROQUICK) 0.4 mg SL tablet Dissolve 1 tablet under the tongue every 5 minutes as needed. - warfarin (COUMADIN) 2.5 mg tablet Take 2.5 mg by mouth. 2.5 mg daily except 5 mg on Mondays - acetaminophen (TYLENOL) 325 mg tablet Take 650 mg by mouth every 6 hours as needed. Problem List As Of Date 07/10/2024 Noted Resolved Disorder of autonomic nervous system [G90.9] 10/20/2003 Adrenal hypofunction (HCC) [E27.40] DERMATITIS NOS [L25.9] 07/18/2008 IMPAIRED RENAL FUNCT NOS [N25.9] 04/26/2005 07/18/2008 Benign neoplasm of colon [D12.6] 04/26/2005 01/23/2024 ASTHMA UNSPECIFIED [J45.909] 09/21/2005 07/18/2008 Cystocele, midline [N81.11] 07/23/2007 02/27/2017 Nontoxic multinodular goiter [E04.2] 12/11/2007 09/23/2017 Hypercalcemia [E83.52] 03/19/2009 06/13/2023 DVT of lower extremity (deep venous thrombosis)*03/28/2009 09/05/2011 Right Renal Mass [N28.89] 03/28/2009 08/26/2009 Hypokalemia [E87.6] 04/09/2009 05/14/2009 Other Specified Pre-Operative Examination [Z01.*04/09/2009 05/14/2009 SUMMARY [V999.95] 04/25/2009 08/26/2009 Elevation of Cardiac Enzymes [R74.8] 04/25/2009 08/26/2009 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] 08/26/2009 12/30/2009 CKD (chronic kidney disease) stage 3, GFR 30-59*08/26/2009 09/23/2020 Anemia [D64.9] 08/26/2009 09/09/2012 Chronic diarrhea [K52.9] 03/15/2010 03/03/2011 Collagenous colitis [K52.831] 03/30/2010 03/03/2011 ASHD (arteriosclerotic heart disease) [I25.10] 04/25/2009 DVT (deep venous thrombosis) ([facility]) [I82.409] 03/23/2012 01/23/2024 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 [M85.80] 11/13/2013 06/30/2023 Chronic nonallergic rhinitis [J31.0] 03/20/2014 Pure hypercholesterolemia [E78.00] 02/17/2015 Gallstones [K80.20] 03/06/2016 08/24/2016 Pain of upper abdomen [R10.10] 03/10/2016 02/27/2017 Personal history of colonic polyps [Z86.0100] 03/10/2016 02/27/2017 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] 11/18/2019 Hypertension [I10] 04/14/2020 Generalized muscle weakness [M62.81] 05/27/2020 06/30/2023 Stage 3b chronic kidney disease (HCC) [N18.32] 07/29/2020 Hypertensive kidney disease with stage 3b chron*07/15/2021 Hip pain [M25.559] 11/01/2022 06/30/2023 Age-related osteoporosis with current pathologi*01/19/2023 Closed displaced fracture of fifth metatarsal b*03/22/2023 Gait abnormality [R26.9] 03/28/2023 01/23/2024 Physical deconditioning [R53.81] 05/31/2023 01/23/2024 Weakness [R53.1] 05/31/2023 NSTEMI (non-ST elevated myocardial infarction) *06/09/2023 01/23/2024 Adrenal insufficiency (HCC) [E27.40] 06/12/2023 Nonrheumatic aortic valve stenosis [I35.0] 06/30/2023 Nodule of lower lobe of right lung needing foll*06/08/2023 02/22/2024 History of DVT of lower extremity and coronary *01/23/2024 Thyroid nodule greater than or equal to 1 cm in*02/22/2024 Encounter Status:Closed by DESIRAE ARZOLA on 07/10/24 Normal [facility] 1,25-dihydroxyvitamin D3 [Ma ss/Vol]on 07-05-2024 VIT D1,25 DIHYDROXY 41.2 pg/mL Normal 19.9-79.3 [facility] Comment on above: Order Comment: Speci men Type: BLOOD SPECIMENOrdering Facility: [facility] Address: [address] [place] [address] Performed By: #### 1 989-3, 1649-3 ####[facility] LABCLIA [id number] [facility] [address] [place] [address] [place] 25(OH)D3 [facility] 2024 25-hydroxyvitamin D3 [Mass/Vol] 37.5 ng/mL Normal 31.0-80.0 [facility] Comment on above: Order Comment: Speci men Type: BLOOD SPECIMENOrdering Facility: [facility] Address: [address] [place] [address] Performed By: #### 1 989-3, 1649-3 ####[facility] LABCLIA [id number] [address] [address] [place] Calcium.ionized [Moles/Vol]o 07-05-2024 Calcium.ionized (Bld) [Mass/Vol] 1.34 mmol/L High 1.08-1.30 [facility] Comment on above: Order Comment: Speci men Type: BLOOD SPECIMENOrdering Facility: [facility] Address: [address] [place], [place] [id number] Performed By: #### 1 995-0 ####[facility] LABCLIA [id number] [address] [place] [address] [place] Calcium.ionized adjusted to pH 7.4 (Bld) [Moles/Vol] 1.33 mmol/L High 1.08-1.30 [facility] Comment on above: Order Comment: Speci men Type: BLOOD SPECIMENOrdering Facility: [facility] Address: [address] [place] [address] Performed By: #### 1 995-0 ####[facility] LABCLIA [id number] [facility] [address] [place] [address] [place] Comprehensive metabolic 2000 panelon 07-05-2024 Albumin [Mass/Vol] 4.0 g/dL Normal 3.9-4.9 [facility] Comment on above: Order Comment: Speci men Type: BLOOD SPECIMENOrdering Facility: [facility] Address: [address] [place] [address] Performed By: #### 3 024-7, 2731-8, 3016-3, 24073-6 ####[facility] LABCLIA [id number] [facility] [address] [address] [place] ALP [Catalytic activity/Vol] 91 U/L Normal 34-123 [facility] Comment on above: Order Comment: Speci men Type: BLOOD SPECIMENOrdering Facility: [facility] Address: [address] [place] [address] Performed By: #### 3 024-7, 2731-8, 3016-3, 96256-5 ####[facility] LABCLIA [id number] [place] [address] [place] ALT [Catalytic activity/Vol] 26 U/L Normal 7-38 [facility] Comment on above: Order Comment: Speci men Type: BLOOD SPECIMENOrdering Facility: [facility] Address: [address] [place] [address] Performed By: #### 3 024-7, 273-8, 3016-3, 91720-3 ####[facility] LABCLIA [id number] [facility] [place] [id number] [place] Anion gap [Moles/Vol] 15 mmol/L Normal 8-15 [facility] Comment on above: Order Comment: Speci men Type: BLOOD SPECIMENOrdering Facility: [facility] Address: [address] [place] [address] Performed By: #### 3 024-7, 273-8, 3016-3, 95706-3 ####[facility] LABCLIA [id number] [facility] [address] [place] [address] [place] AST [Catalytic activity/Vol] 24 U/L Normal 13-35 [facility] Comment on above: Order Comment: Speci men Type: BLOOD SPECIMENOrdering Facility: [facility] Address: [address] [place] [address] Performed By: #### 3 024-7, 273-8, 3, ####[facility] LABCLIA [id number] [address] [address] [place] Bilirubin [Mass/Vol] 0.6 mg/dL Normal 0.2-1.3 [facility] Comment on above: Order Comment: Speci men Type: BLOOD SPECIMENOrdering Facility: [facility] Address: [address] [place] [address] Performed By: #### 3 024-7, 273-8, 3, ####[facility] LABCLIA [id number] [place] [address] [place] Calcium [Mass/Vol] 10.2 mg/dL Normal 8.5-10.2 [facility] Comment on above: Order Comment: Speci men Type: BLOOD SPECIMENOrdering Facility: [facility] Address: [address] [place] [address] Performed By: #### 3 024-7, 2730-8, 3015-04, ####[facility] LABCLIA [id number] [place] [id number] [place] Chloride [Moles/Vol] 104 mmol/L Normal 98-107 [facility] Comment on above: Order Comment: Speci men Type: BLOOD SPECIMENOrdering Facility: [facility] Address: [address] [place] [address] Performed By: #### 3 024-7, 2730-8, 3, ####[facility] LABCLIA [id number] [facility] [address] [address] [place] CO2 [Moles/Vol] 22 mmol/L Normal 22-30 [facility] Comment on above: Order Comment: Speci men Type: BLOOD SPECIMENOrdering Facility: [facility] Address: [address] [place] [address] Performed By: #### 3 024-7, 273-8, 3015-3, 11285-9 ####[facility] LABCLIA [id number] [address] [address] [place] Creatinine [Mass/Vol] 1.34 mg/dL High 0.58-0.96 [facility] Comment on above: Order Comment: Mistyi men Type: BLOOD SPECIMENOrdering Facility: [facility] Address: [address] [place] [address] Performed By: #### 3 024-7, 2730-8, 3, 90335-1 ####[facility] LABCLIA [id number] [address] [address] [place] Creatinine and Glomerular filtration rate.predicted panel (S/P/Bld) 40 mL/min/1.73m??? Low >=60 [facility] Comment on above: Order Comment: Jody tiki Type: BLOOD SPECIMENOrdering Facility: [facility] Address: [address] [place] [address] Result Comment: Marisabel mated Glomerular Filtration Rate (eGFR) is calculated using the 2020 CKD-EPI creatinine equation. This equation utilizes serum creatinine, sex, and age as parameters. The creatinine assay has traceable calibration to isotope dilution-mass spectrometry. Refer to KDIGO guidelines for clinical interpretation. In patients with unstable renal function, e.g. those with acute kidney injury, the eGFR may not accurately reflect actual GFR. Performed By: #### 3 024-7, 2731-8, 3015-3, 15057-1 ####[facility] LABCLIA [id number] [address] [address] [place] Glucose [Mass/Vol] 87 mg/dL Normal 74-99 [facility] Comment on above: Order Comment: Jody tiki Type: BLOOD SPECIMENOrdering Facility: [facility] Address: [address] [place] [address] Result Comment: The [place] Diabetes Association (ADA) provides guidance for cutoff values for fasting glucose and random glucose. The ADA defines fasting as no caloric intake for at least 8 hours. Fasting plasma glucose results between 100 to 125 mg/dL indicate increased risk for diabetes (prediabetes). Fasting plasma glucose results greater than or equal to 126 mg/dL meet the criteria for diagnosis of diabetes. In the absence of unequivocal hyperglycemia, results should be confirmed by repeat testing. In a patient with classic symptoms of hyperglycemia or hyperglycemic crisis, random plasma glucose results greater than or equal to 200 mg/dL meet the criteria for diagnosis of diabetes. Reference: Standards of Medical Care in Diabetes 2016, [place] [employer]. Diabetes Care. 2016.39(Suppl 1). Performed By: #### 3 024-7, 273-8, 3015-3, 29383-0 ####[facility] LABIA [id number] [place] [address] [place] Potassium [Moles/Vol] 5.1 mmol/L Normal 3.7-5.1 [facility] Comment on above: Order Comment: Jody fairbanks Type: BLOOD SPECIMENOrdering Facility: [facility] Address: [address] [place] [address] Performed By: #### 3 024-7, 273-8, 3015-04, 09039-7 ####[facility] [id number] [place] [address] [place] Protein [Mass/Vol] 6.0 g/dL Low 6.3-8.0 [facility] Comment on above: Order Comment: Jody fairbanks Type: BLOOD SPECIMENOrdering Facility: [facility] Address: [address] [place] [address] Performed By: #### 3 024-7, 273-8, 3015-04, 60592-4 ####[facility] LABIA [id number] [place] [id number] [place] Sodium [Moles/Vol] 141 mmol/L Normal 136-144 [facility] Comment on above: Order Comment: Jody fairbanks Type: BLOOD SPECIMENOrdering Facility: [facility] Address: [address] [place] [address] Performed By: #### 3 024-7, 2731-8, 3016-3, 11354-6 ####[facility] LABIA [id number] [place] [address] [place] Urea nitrogen [Mass/Vol] 42 mg/dL High 7-21 [facility] Comment on above: Order Comment: Speci men Type: BLOOD SPECIMENOrdering Facility: [facility] Address: [address] [place] [address] Performed By: #### 3 024-7, 2731-8, 3016-3, 91108-0 ####[facility] LABIA [id number] [place] [address] [place] GALAC PHOS URIDYL Omar 07-05 GALAC PHOS URIDYL TR 26.2 U/g Hb Normal >=19.4 [facility] Comment on above: Order Comment: Speci men Type: BLOOD SPECIMENOrdering Facility: [facility] Address: [address] [place] [address] Result Comment: Norm al byoqgkxlb-0-noswusydq uridyltransferase activity. Results reviewed and interpreted by Fatmata Craven MD, PhD, [facility] INTERPRETIVE INFORMATION: Skvak-2-Wfqe Uridyltransferase One U/g Hb is equivalent to one umol/hour/gram of hemoglobin (umol/hr/g Hb). Genotype Pmluf-8-Jyrg Uridyltransferase activity(umol/hr/g Hb) Classic galactosemia(G/G) ..... Less than or equal to 0.7 Alva galactosemia(D/G) ............. 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 6.5-16.2 Alva homozygous(D/D) ............... 6.4-16.5 Alva carrier(D/N) .................. 12.0-24.0 Normal(N/N) .................. Greater than or equal to 19.4 This test was developed and its performance characteristics determined by [facility]. It has not been cleared or approved by the [place] Food and Drug Administration. This test was performed in a CLIA certified laboratory and is intended for clinical purposes. Counseling and informed consent are recommended for genetic testing. Consent forms are available online. Performed By: [facility] [address] [place] [address] Blood Bank Order Control Clerk: Jefferson Kerr MD, PhD CLIA Number: [id number] Performed By: #### G 1PHOS ####[facility] [id number] [place] [address] PTH-Intact SerPl-ncon - Parathyrin.intact [Mass/Vol] 52 pg/mL Normal 15-65 [facility] Comment on above: Order Comment: Speci men Type: BLOOD SPECIMENOrdering Facility: [facility] Address: [address] [place] [address] Performed By: #### 3 024-7, 2731-8, 3016-3, 08470-3 ####[facility] [id number] [place] [address] [place] T4 Free SerPl-mCncon 025 Free T4 [Mass/Vol] 1.4 ng/dL Normal 0.9-1.7 [facility] Comment on above: Order Comment: Speci men Type: BLOOD SPECIMENOrdering Facility: [facility] Address: [address] [place] [address] Performed By: #### 3 024-7, 2731-8, 3016-3, 17627-3 ####[facility] [id number] [place] [address] [place] TSH SerPl-aCncon 07-05-2024 TSH Qn 0.460 m[IU]/L Normal 0.270-4.200 [facility] Comment on above: Order Comment: Speci men Type: BLOOD SPECIMENOrdering Facility: [facility] Address: [address] [place] [address] Performed By: #### 3 024-7, 2731-8, 3016-3, 44462-1 ####[facility] LABCLIA [id number] [place] [address] [place] Echo Transesophageal (TOMI)on 07-03-2024 Echo Transesophageal (TOMI) [facility] [address] [place] [address] Echo Transesophageal (TOMI) 07/03/24 1154 MR#: [id number] Acct: [id number] Name: LINDA PERALTA Rep #: [id number] : 1945 79 From: Jordan Marte MD Attending Dr: NIGHAT Burns Status: REG CL I Ordering Dr: Tucker Reyes Date: 07/03/24 Location: [facility] Sex: F C Admitted: Reason For Study : AORTIC STENOSIS Medication TOMI probe 6VT-D (SN [id number]) passed with minimal difficulty. No complications were noted. Cetacaine Topical [place] given X3 orally. Left Ventricle Normal LV size. Moderate concentric left ventricular hypertrophy. Left ventricular systolic function is lower limits of normal. The estimated ejection fraction is 47 %. No regional wall motion abnormalities noted. Right Ventricle Normal RV size. Normal systolic function. Atria Bubble contrast study negative for right to left interatrial shunt. Normal left atrium. Normal right atrium. Mitral Valve Bileaflet diffuse mitral valve thickening. Moderate (2+) eccentric mitral valve insufficiency. Tricuspid Valve Normal tricuspid valve. Mild tricuspid valve insufficiency. Aortic Valve Trisinus/trileaflet aortic valve. Moderate diffuse aortic valve calcification. Moderate to severe aortic stenosis. Pulmonic Valve Normal pulmonic valve. Vessels Mild atherosclerosis of the ascending aorta. Mild atherosclerosis of the descending aorta. The pulmonary artery is normal size. Pulmonary venous flow normal. Pericardium No pericardial effusion. MMode/2D Measurements Calculations Ao root diam: 3.5 cm Aortic Valve Planimetry: 0.52 cm2 ECHO/Echo Transesophageal (TOMI) Interpretation Summary Normal LV size. Left ventricular systolic function is lower limits of normal. The estimated ejection fraction is 47 %. Moderate diffuse aortic valve calcification. Moderate to severe aortic stenosis. Moderate (2+) eccentric mitral valve insufficiency. Moderate concentric left ventricular hypertrophy. Ordering Physician: Tucker Reyes Referring Physician: Amos Floyd Performed By: Oksana Perales, RDCS, RVT 07/03/24 1505 Date Jordan Marte MD CC: Dr. Amos Floyd MD; NIGHAT Burns Date Dictated: 07/03/24 1154 Date Transcribed: 07/03/24 150 Corporation Lawyer: Signed Normal [facility] Transesophageal echocardiogr am reportOrdered By: Jordan Marte on 07-03-2024 Study report [facility] [address] [place] [address] Echo Transesophageal (TOMI) 07/03/24 1154 MR#: [id number] Acct: [id number] Name: LINDA PERALTA Rep #:[id number] : 1945 79 From: Jordan Payton Attending Dr: NIGHAT Burns atus: REG CLI Ordering Dr: Tucker Reyes Date: 07/03/24 Location: [facility] Sex: F C Admitted: Reason For Study : AORTIC STENOSIS Medication TOMI probe 6VT-D (SN [id number]) passed with minimal difficulty. No complications were noted. Cetacaine Topical [place] given X3 orally. Left Ventricle Normal LV size. Moderate concentric left ventricular hypertrophy. Left ventricular systolic function is lower limits of normal. The estimated ejection fraction is 47 %. No regional wall motion abnormalities noted. Right Ventricle Normal RV size. Normal systolic function. Atria Bubble contrast study negative for right to left interatrial shunt. Normal left atrium. Normal right atrium. Mitral Valve Bileaflet diffuse mitral valve thickening. Moderate (2+) eccentric mitral valve insufficiency. Tricuspid Valve Normal tricuspid valve. Mild tricuspid valve insufficiency. Aortic Valve Trisinus/trileaflet aortic valve. Moderate diffuse aortic valve calcification. Moderate to severe aortic stenosis. Pulmonic Valve Normal pulmonic valve. Vessels Mild atherosclerosis of the ascending aorta. Mild atherosclerosis of the descending aorta. The pulmonary artery is normal size. Pulmonary venous flow normal. Pericardium No pericardial effusion. MMode/2D Measurements & Calculations Ao root diam: 3.5 cm Aortic Valve Planimetry: 0.52 cm2 ECHO/Echo Transesophageal (TOMI) Interpretation Summary Normal LV size. Left ventricular systolic function is lower limits of normal. The estimated ejection fraction is 47 %. Moderate diffuse aortic valve calcification. Moderate to severe aortic stenosis. Moderate (2+) eccentric mitral valve insufficiency. Moderate concentric left ventricular hypertrophy. Ordering Physician: Tucker Reyes Referring Physician: Amos Floyd Performed By: Oksana Perales, RDCS, RVT 07/03/24 1505 Date _ Jordan Marte MD CC: Dr. Amos Floyd MD; NIGHAT Burns ~ Date Dictated: 07/03/24 1154 Date Transcribed: 07/03/24 150 Corporation Lawyer: Signed [facility] Work Phone: International normalized rat io (INR) measurement by fingerstickOrdered By: Shameka Velasquez on 06-21-2024 INR Coag (BldC) [Relative time] 2.0 [facility] Comment on above: Critical Value > 4.0 Protime w/INR Fingerstickon 06-21-2024 INR Coag (PPP) [Relative time] 2.0 {INR} Normal [facility] Comment on above: Result Comment: Crit ical Value > 4.0 Performed By: #### L 9200.0000 #### [facility] Laboratory [address] [place], [place], [id number] Protime Coagsen 22.3 SEC High 11.7-14.9 [facility] Comment on above: Performed By: #### L 9200.0000 #### [facility] Laboratory [address] [place], [place], [id number] Whole blood prothrombin time Ordered By: Shameka Velasquez on 06-21-2024 PT Coag (Bld) [Time] 22.3 s High 11.7-14.9 [facility] Echo Completeon 05-24-2024 Echo Complete [facility] [address] [place] [address] Echo Complete 05/24/24 1348 MR#: [id number] Acct: [id number] Name: LINDA PERALTA Rep #: [id number] : 1945 79 From: Jordan Marte MD Attending Dr: NIGHAT Burns Status: REG CL I Ordering Dr: Tucker Reyes Date: 05/24/24 Location: [facility] Sex: F C Admitted: Reason For Study Reason For Study: Murmur Procedure This was a 2D Doppler, Color Flow transthoracic echocardiogram. The study was technically difficult. Exam performed in department. Left Ventricle Normal LV size. Mild concentric left ventricular hypertrophy. The left ventricular ejection fraction is 45 %. Stage 1 diastolic dysfunction. No regional wall motion abnormalities noted. Right Ventricle Normal RV size. Normal systolic function. Atria Normal left atrium. Normal right atrium. Mitral Valve Bileaflet diffuse mitral valve thickening. There is mild to moderate mitral annular calcification. Mild-Moderate (1-2+) eccentric mitral valve insufficiency. Tricuspid Valve Normal tricuspid valve. Mild (1+) tricuspid valve insufficiency. Pulmonary artery systolic pressure is 36 mmHg. Aortic Valve Trisinus/trileaflet aortic valve. Moderate focal aortic valve calcification. Peak aortic valve gradient 72 mmHg. Mean aortic valve gradient 39 mmHg. Moderate to severe aortic stenosis. Pulmonic Valve Normal pulmonic valve. Great Vessels Normal aortic root. The pulmonary artery is normal size. Normal inferior vena cava. Pericardium/Pleural No pericardial effusion. Medication NO DEFINITY, LEFT NEPHRECTOMY, PARTIAL RIGHT NEPHRECTOMY. MMode/2D Measurements Calculations LVIDd: 4.4 cm IVSd: 1.4 cm LVOT diam: 2.0 cm LVIDs: 3.6 cm LVPWd: 1.2 cm RVDd: 3.7 cm FS: 18.9 % LVOT area: 3.3 cm2 _ Ao root diam: 3.3 cm LAV(MOD-bp): 52.4 ml LVAd ap4: 27.1 cm2 LAV(MOD-bp) Indexed: 31.4 ml/m2 LVLd ap4: 8.3 cm LAV(MOD-sp2): 61.9 ml EDV(MOD- sp4): 68.5 ml LAV(MOD-sp4): 45.3 ml EDV(sp4-el): 74.9 ml LVAs ap4: 20.0 cm2 LVLs ap4: 7.4 cm ESV(MOD- sp4): 42.8 ml ESV(sp4-el): 46.1 ml EF(MOD-sp4): 37.5 % EF(sp4-el): 38.5 % _ SV(MOD-sp4): 25.7 ml SV(sp4-el): 28.8 ml Ao sinus diam: 3.2 cm SI(MOD-sp4): 15.4 ml/m2 _ Ao ST Junction: 2.4 cm Aortic Valve Planimetry: 0.61 cm2 LA A4 area: 17.5 cm2 _ LA dimension(2D): 4.5 cm RA A4 area: 15.8 cm2 Time Measurements MV dec time: 0.12 sec Doppler Measurements Calculations MV E max tegan: 48.3 cm/sec Lat Peak E' Tegan: 5.3 cm/sec Med Peak E' Tegan: 5.6 cm/sec MV A max tegan: 119.9 cm/sec E/E' lat: 9.2 E/E' med: 8.6 MV E/A: 0.40 _ MV V2 max: 153.0 cm/sec MV P1/2t max tegan: 69.4 cm/sec Ao V2 max: 425.0 cm/sec MV max P.4 mmHg MV P1/2t: 50.5 msec Ao max P.7 mmHg MV V2 mean: 69.3 cm/sec MV dec slope: 402.7 cm/sec2 Ao V2 mean: 289.0 cm/sec MV mean P.6 mmHg Ao mean P.8 mmHg MV V2 VTI: 19.9 cm MVA(P1/2t): 4.4 cm2 Ao V2 VTI: 79.6 cm MVA(VTI): 1.9 cm2 AV (velocity ratio): 0.15 OMID(I,D): 0.48 cm2 OMID(V,D): 0.44 cm2 _ LV V1 max: 57.5 cm/sec MR max tegan: 583.7 cm/sec SV(LVOT): 38.4 ml LV V1 max P.4 mmHg MR max P.4 mmHg LV V1 mean P.72 mmHg MR mean tegan: 447.8 cm/sec LV V1 mean: 38.5 cm/sec MR mean P.4 mmHg LV V1 VTI: 11.8 cm MR VTI: 177.2 cm _ PA V2 max: 101.5 cm/sec TR max tegan: 280.4 cm/sec TR max P.5 mmHg ECHO/Echo Complete Interpretation Summary Normal LV size. The left ventricular ejection fraction is 45 %. There is mild to moderate mitral annular calcification. Mild-Moderate (1-2+) eccentric mitral valve insufficiency. Stage 1 diastolic dysfunction. Mild concentric left ventricular hypertrophy. Moderate focal aortic valve calcification. Mean aortic valve gradient 39 mmHg. Moderate to severe aortic stenosis. Compared to the previous the aortic stenosis is worse. Ordering Physician: Tucker Reyes Referring Physician: Tucker Reyes Performed By: Cali Phillips RCS 05/24/24 1604 Date _ (more content not included)... Normal [facility] Echocardiogram study reportO rdered By: Jordan Marte on 05-24-2024 Study report [facility] [address] [place] [address] Echo Complete 05/24/24 1348 MR#: [id number] Acct: [id number] Name: LINDA PERALTA Rep #:[id number] : 1945 79 From: Jordan Payton Attending Dr: NIGHAT Burns atus: [facility] CLI Ordering Dr: Tucker Reyes Date: 05/24/24 Location: [facility] Sex: F C Admitted: Reason For Study Reason For Study: Murmur Procedure This was a 2D Doppler, Color Flow transthoracic echocardiogram. The study was technically difficult. Exam performed in department. Left Ventricle Normal LV size. Mild concentric left ventricular hypertrophy. The left ventricular ejection fraction is 45 %. Stage 1 diastolic dysfunction. No regional wall motion abnormalities noted. Right Ventricle Normal RV size. Normal systolic function. Atria Normal left atrium. Normal right atrium. Mitral Valve Bileaflet diffuse mitral valve thickening. There is mild to moderate mitral annular calcification. Mild-Moderate (1-2+) eccentric mitral valve insufficiency. Tricuspid Valve Normal tricuspid valve. Mild (1+) tricuspid valve insufficiency. Pulmonary artery systolic pressure is 36 mmHg. Aortic Valve Trisinus/trileaflet aortic valve. Moderate focal aortic valve calcification. Peak aortic valve gradient 72 mmHg. Mean aortic valve gradient 39 mmHg. Moderate to severe aortic stenosis. Pulmonic Valve Normal pulmonic valve. Great Vessels Normal aortic root. The pulmonary artery is normal size. Normal inferior vena cava. Pericardium/Pleural No pericardial effusion. Medication NO DEFINITY, LEFT NEPHRECTOMY, PARTIAL RIGHT NEPHRECTOMY. MMode/2D Measurements & Calculations LVIDd: 4.4 cm IVSd: 1.4 cm LVOT diam: 2.0 cm LVIDs: 3.6 cm LVPWd: 1.2 cm RVDd: 3.7 cm FS: 18.9 % LVOT area: 3.3 cm2 Ao root diam: 3.3 cm LAV(MOD-bp): 52.4 ml LVAd ap4: 27.1 cm2 LAV(MOD-bp) Indexed: 31.4 ml/m2 LVLd ap4: 8.3 cm LAV(MOD-sp2): 61.9 ml EDV(MOD-sp4): 68.5 ml LAV(MOD-sp4): 45.3 ml EDV(sp4-el): 74.9 ml LVAs ap4: 20.0 cm2 LVLs ap4: 7.4 cm ESV(MOD-sp4): 42.8 ml ESV(sp4-el): 46.1 ml EF(MOD-sp4): 37.5 % EF(sp4-el): 38.5 % SV(MOD-sp4): 25.7 ml SV(sp4-el): 28.8 ml Ao sinus diam: 3.2 cm SI(MOD-sp4): 15.4 ml/m2 Ao ST Junction: 2.4 cm Aortic Valve Planimetry: 0.61 cm2 LA A4 area: 17.5 cm2 _ LA dimension(2D): 4.5 cm RA A4 area: 15.8 cm2 Time Measurements MV dec time: 0.12 sec Doppler Measurements & Calculations MV E max tegan: 48.3 cm/sec Lat Peak E' Tegan: 5.3 cm/sec Med Peak E' Tegan: 5.6 cm/sec MV A max tegan: 119.9 cm/sec E/E' lat: 9.2 E/E' med: 8.6 MV E/A: 0.40 MV V2 max: 153.0 cm/sec MV P1/2t max tegan: 69.4 cm/sec Ao V2 max: 425.0 cm/sec MV max P.4 mmHg MV P1/2t: 50.5 msec Ao max P.7 mmHg MV V2 mean: 69.3 cm/sec MV dec slope: 402.7 cm/sec2 Ao V2 mean: 289.0 cm/sec MV mean P.6 mmHg Ao mean P.8 mmHg MV V2 VTI: 19.9 cm MVA(P1/2t): 4.4 cm2 Ao V2 VTI: 79.6 cm MVA(VTI): 1.9 cm2 AV (velocity ratio): 0.15 OMID(I,D): 0.48 cm2 OMID(V,D): 0.44 cm2 _ LV V1 max: 57.5 cm/sec MR max tegan: 583.7 cm/sec SV(LVOT): 38.4 ml LV V1 max P.4 mmHg MR max P.4 mmHg LV V1 mean P.72 mmHg MR mean tegan: 447.8 cm/sec LV V1 mean: 38.5 cm/sec MR mean P.4 mmHg LV V1 VTI: 11.8 cm MR VTI: 177.2 cm PA V2 max: 101.5 cm/sec TR max tegan: 280.4 cm/sec TR max P.5 mmHg ECHO/Echo Complete Interpretation Summary Normal LV size. The left ventricular ejection fraction is 45 %. There is mild to moderate mitral annular calcification. Mild-Moderate (1-2+) eccentric mitral valve insufficiency. Stage 1 diastolic dysfunction. Mild concentric left ventricular hypertrophy. Moderate focal aortic valve calcification. Mean aortic valve gradient 39 mmHg. Moderate to severe aortic stenosis. Compared to the previous the aortic stenosis is worse. Ordering Physician: Tucker Reyes Referring Physician: Tucker Reyes Performed By: Cali Phillips RCS 05/24/24 1604 Date _ Jordan Marte MD CC: Dr. Amos Floyd MD; NIGHAT Burns ~ Date Dictated: 05/24/24 1348 Date Transcribed: 05/24/24 1604 Corporation Lawyer: Signed [facility] Work Phone: INR Coag (BldC) [Relative ti me]Ordered By: Shameka Velasquez on 05-24-2024 INR Coag (Bld) [Relative time] 2.7 {INR} [facility] Comment on above: Critical Value > 4.0 International normalized rat io (INR) measurement by fingerstickOrdered By: Shameka Velasquez on 05-24-2024 INR Coag (BldC) [Relative time] 2.7 [facility] Comment on above: Critical Value > 4.0 PT Coag (Bld) [Time]Ordered By: Shameka Velasquez on 05-24-2024 Bedside Prothrombin Time 28.1 SEC High 11.7-14.9 [facility] Protime w/INR Fingerstickon 05-24-2024 INR Coag (PPP) [Relative time] 2.7 {INR} Normal [facility] Comment on above: Result Comment: Crit ical Value > 4.0 Performed By: #### L 9200.0000 #### [facility] Laboratory [address] [facility] [id number] Protime Coagsen 28.1 SEC High 11.7-14.9 [facility] Comment on above: Performed By: #### L 9200.0000 #### [facility] Laboratory [address] [place], [place], [id number] Whole blood prothrombin time Ordered By: Shameka Velasquez on 05-24-2024 PT Coag (Bld) [Time] 28.1 s High 11.7-14.9 [facility] Protime w/INR Fingerstickon 04-30-2024 INR Coag (PPP) [Relative time] 2.5 {INR} Normal [facility] Comment on above: Result Comment: Crit ical Value > 4.0 Performed By: #### L 9200.0000 #### [facility] Laboratory [address] [place], [address] Protime Coagsen 26.5 SEC High 11.7-14.9 [facility] Comment on above: Performed By: #### L 9200.0000 #### [facility] Laboratory [address] [place], [place], [address] Cardiology Visit Reporton Cardiology Visit Report [facility] [address] [place], [place] [address] OFFICE VISIT Date of Service: 04/29/24 MR#: [id number] Acct: [id number] Name: LINDA PERALTA Rep #: [id number] : 1945 Provider: NIGHAT Burns Age/Sex: 79/F Location: [facility] Status: Signed HPI HPI History of Present Illness Details: Linda Peralta is an 79-year-old female who presents to office today for follow-up for monitoring of her cardiovascular disease. Patient has a history of NSTEMI in 2009 which was felt to be secondary to coronary embolism as a heart catheterization at that time did not demonstrate significant coronary artery disease. Patient also has a known history of hyperlipidemia, DVT, PE. Previous echo with mod-severe aortic stenosis. Patient does have [place]'s disease. 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 Since last seen, approximately 5 months ago, patient reports doing fairly well. Patient has a boot on her left foot today treating a left foot fracture. Patient reports other providers outside of c ardiology noticing murmur worsening/becoming stronger. Patient with no associated symptoms. Only symptom reported today was shortness of breath with overexertion that has been going on for 1 year. Patient was able to walk from parking lot to office without any concerns today. Patient denies any hospitalizations since last seen. Patient reports noticing her memory worsening; however, continues to be able to live independently. Patient does monitor BP at home and reports readings in the mornings 150s/80s and down to 130s/80s before medications with improvement to 120s/80s or lower after taking medication. Patient does follow with nephrology regularly. Further ROS below. Intake Vital Signs 03/03/23 08:55 11/28/23 11:07 04/29/24 08:22 Height 5 ft 2 in 5 ft 2 in 5 ft 2 in Weight: 145 lb BMI 26.5 BP 123/91 H Blood Pressure Location Lt brachial Position Sitting Respiration 18 Pulse 97 Pulse Source Monitor Pulse Oximetry (%) 94 Intake Visit Reasons: 1 Y FU [employer] Required: No Is patient in pain?: No Allergies ciprofloxacin (From Cipro) Allergy (Verified 04/29/24 10:56) Rash Penicillins Allergy (Verified 04/29/24 10:56) Rash Medications ???Medication ???Instructions ???Recorded ???Confirmed ???Type acetaminophen 500 mg tablet 1,000 mg (2 x 500 mg) PO Q6H PRN 0 2/17/21 03/10/25 Rx Pain Score 1-10 simvastatin 20 mg tablet 20 mg PO QHS 07/17/20 04/29/24 His tory denosumab 60 mg/mL subcutaneous 60 mg subcut [id number] #1 mL 04/29/24 Rx syringe (Prolia) hydrocortisone 10 mg tablet 20 mg (2 x 10 mg) PO DAILY@0600 04/29/24 Rx #90 tabs nitroglycerin 0.4 mg sublingual 0.4 mg sublingual Q5-15M PRN 07/2504/29/24 Rx tablet Cardiac/Chest Pain #25 tabs lisinopril 5 mg tablet 5 mg PO QDAY #30 tabs 12/19/2312/14 Rx warfarin 2.5 mg tablet 2.5 mg PO DAILY@1700 #120 tabs 05/1404/29/24 Rx ascorbic acid (vitamin C) 1,000 mg 1 g PO QDAY 04/29/24 04/29/24 Hi story capsule methenamine hippurate 1 gram tablet 1 g PO QHS 04/29/24 04/29/24 Hi story Ejection fraction %: 65 Have you fallen in the past year?: No Nurse's Note: left foot fractured. 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 Orthostatic hypotension 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, stage 3 Moris disease Essential (primary) hypertension Hyperlipidemia Recurrent deep vein thrombosis (DVT) History of non-ST elevation myocardial infarction (NSTEMI) (04/2009) Pyelonephritis Cystocele with rectocele History of DVT (deep vein thrombosis) Hypotension Surgical History History of left heart catheterization (04/2009) History of left nephrectomy (2000) History of total abdominal hysterectomy History of bladder repair surgery H/O partial nephrectomy (2009) H/O total cystectomy Family History Father CVA (cerebral vascular accident) Mother Myocardial infarction, Onset Age: 87 Other History of DVT (deep vein 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 Normal [facility] INR Coag (BldC) [Relative ti me]Ordered By: Shameka Velasquez on 04-26-2024 INR Coag (Bld) [Relative time] 2.5 {INR} [facility] Comment on above: Critical Value > 4.0 International normalized rat io (INR) measurement by fingerstickOrdered By: Shameka Velasquez on 04-26-2024 INR Coag (BldC) [Relative time] 2.5 [facility] Comment on above: Critical Value > 4.0 PT Coag (Bld) [Time]Ordered By: Shameka Velasquez on 04-26-2024 Bedside Prothrombin Time 26.5 SEC High 11.7-14.9 [facility] Whole blood prothrombin time Ordered By: Shameka Velasquez on 04-26-2024 PT Coag (Bld) [Time] 26.5 s High 11.7-14.9 [facility] Blood urea nitrogen (BUN)/cr eatinine ratioOrdered By: Jennifer Tarango on 04-03-2024 Urea nitrogen/Creatinine [Mass ratio] 21.8 mg/mg High 10-20 [facility] Carbon dioxide measurementOr dered By: Jennifer Tarango on 04-03-2024 CO2 [Moles/Vol] 26.0 mmol/L 21.0-32.0 [facility] Chloride measurementOrdered By: Jennifer Tarango on 04-03-2024 Chloride [Moles/Vol] 107 mmol/L 98-107 [facility] Estimated glomerular filtrat ion rate (GFR) AmericanOrdered By: Jennifer Tarango on 04-03-2024 Estimated GFR (MDRD) Amer 46 mL/min Low >60 [facility] Comment on above: GFR Calc Glomerular filtration rate ( GFR) estimationOrdered By: Jennifer Tarango on 04-03-2024 Estimated GFR (MDRD) Non-Af Amer 38 mL/min Low >60 [facility] Comment on above: Non- GFR Calc GFR/1.73 sq M.predicted among non-blacks MDRD (S/P/Bld) [Vol rate/Area] 38 mL/min/{1.73_m2} Low >60 [facility] Comment on above: Non- GFR Calc Glucose measurementOrdered B y: Jennifer Tarango on 04-03-2024 Glucose [Mass/Vol] 152 mg/dL High 74-106 [facility] Comment on above: Fasting Glucose resu lt greater than or equal to 126 mg/dL suggests DIABETES MELLITUS per A.D.A. criteria. Phosphorus measurementOrdere d By: Jennifer Tarango on 04-03-2024 Phosphorus Level 2.3 mg/dL Low 2.5-4.9 [facility] Potassium measurementOrdered By: Jennifer Tarango on 04-03-2024 Potassium [Moles/Vol] 4.2 mmol/L 3.5-5.1 [facility] Renal Profileon 04-03-2024 Albumin [Mass/Vol] 3.4 g/dL Normal 3.2-5.0 [facility] Comment on above: Performed By: #### L 300.3900, L500.2500 #### [facility] Laboratory [address] [place], [address] BUN/CRE 21.8 RATIO High 10-20 [facility] Comment on above: Performed By: #### L 300.3900, L500.2500 #### [facility] [address] [place], [address] CA,Total 9.3 mg/dL Normal 8.5-10.1 [facility] Comment on above: Performed By: #### L 300.3900, [id number] #### [facility] [address] [place], [address] Chloride [Moles/Vol] 107 mmol/L Normal 98-107 [facility] Comment on above: Performed By: #### L 300.3900, [id number] #### [facility] [address] [place], [address] CO2 [Moles/Vol] 26.0 mmol/L Normal 21.0-32.0 [facility] Comment on above: Performed By: #### L 300.3900, L500.2500 #### [facility] [address] [place], [address] Creatinine [Mass/Vol] 1.42 mg/dL High 0.55-1.02 [facility] Comment on above: Result Comment: The validity of the calculated GFR GFRAA in patients over 70 years has not been determined. Clinical correlation is essential. Performed By: #### L 300.3900, L500.2500 #### [facility] [address] [place], [address] EST GFR - AA 46 mL/min Low >60 [facility] Comment on above: Result Comment: Afri can Macedonian GFR Calc Performed By: #### L 300.3900, L500.2500 #### [facility] [address] [place], [address] GFR/1.73 sq M.predicted among non-blacks MDRD (S/P/Bld) [Vol rate/Area] 38 mL/min/{1.73_m2} Low >60 [facility] Comment on above: Result Comment: Non- GFR Calc Performed By: #### L 300.3900, L500.2500 #### [facility] [address] [place], [address] Glucose [Mass/Vol] 152 mg/dL High 74-106 [facility] Comment on above: Result Comment: Fast ing Glucose result greater than or equal to 126 mg/dL suggests DIABETES MELLITUS per A.D.A. criteria. Performed By: #### L 300.3900, L500.2500 #### [facility] [address] [place], [address] Phosphate [Mass/Vol] 2.3 mg/dL Low 2.5-4.9 [facility] Comment on above: Performed By: #### L 300.3900, [id number] #### [facility] [address] [place], [address] Potassium [Moles/Vol] 4.2 mmol/L Normal 3.5-5.1 [facility] Comment on above: Performed By: #### L 300.3900, L500.2500 #### [facility] [address] [place], [address] Sodium [Moles/Vol] 140 mmol/L Normal 136-145 [facility] Comment on above: Performed By: #### L 300.3900, L500.2500 #### [facility] [address] [place], [address] Urea nitrogen [Mass/Vol] 31 mg/dL High 09-06 [facility] Comment on above: Performed By: #### L 300.3900, L500.2500 #### [facility] [address] [place], [address] Serum or plasma albumin scott urement (mass/volume)Ordered By: Jennifer Tarango on 04-03-2024 Albumin [Mass/Vol] 3.4 g/dL 3.2-5.0 [facility] Serum or plasma calcium scott urement (mass/volume)Ordered By: Jennifer Tarango on 04-03-2024 Calcium [Mass/Vol] 9.3 mg/dL 8.5-10.1 [facility] Serum or plasma creatinine m easurement (mass/volume)Ordered By: Jennifer Tarango on 04-03-2024 Creatinine [Mass/Vol] 1.42 mg/dL High 0.55-1.02 [facility] Comment on above: The validity of the calculated GFR & GFRAA in patients over 70 years has not been determined. Clinical correlation is essential. Serum or plasma urea nitroge n measurement (mass/volume)Ordered By: Jennifer Tarango on 04-03-2024 Urea nitrogen [Mass/Vol] 31 mg/dL High [facility] Sodium levelOrdered By: Dustin Tarango on 04-03-2024 Sodium [Moles/Vol] 140 mmol/L 136-145 [facility] INR Coag (BldC) [Relative ti me]Ordered By: Shameka Velasquez on 03-21-2024 INR Coag (Bld) [Relative time] 2.3 {INR} [facility] Comment on above: Critical Value > 4.0 International normalized rat io (INR) measurement by fingerstickOrdered By: Shameka Velasquez on 03-21-2024 INR Coag (BldC) [Relative time] 2.3 [facility] Comment on above: Critical Value > 4.0 PT Coag (Bld) [Time]Ordered By: Shameka Velasquez on 03-21-2024 Bedside Prothrombin Time 24.0 SEC High 11.7-14.9 [facility] Protime w/INR Fingerstickon 03-21-2024 INR Coag (PPP) [Relative time] 2.3 {INR} Normal [facility] Comment on above: Result Comment: Crit ical Value > 4.0 Performed By: #### L 9200.0000 #### [facility] Laboratory [address] [place], [address] Protime Coagsen 24.0 SEC High 11.7-14.9 [facility] Comment on above: Performed By: #### L 9200.0000 #### [facility] Laboratory [address] [place], [place], [id number] Whole blood prothrombin time Ordered By: Shameka Velasquez on 03-21-2024 PT Coag (Bld) [Time] 24.0 s High 11.7-14.9 [facility] Prothrombin Time w/INRon INR Normal [facility] Comment on above: Result Comment: UNRULY HUYNH Performed By: #### L 300.3900, L500.2500 #### [facility] [address] [place], [place], [address] PROTIME Normal 11.7-14.9 [facility] Comment on above: Result Comment: FING ERSTICK Performed By: #### L 300.3900, L500.2500 #### [facility] [address] [place], [address] Protime w/INR Fingerstickon 02-28-2024 INR Coag (PPP) [Relative time] 3.1 {INR} Normal [facility] Comment on above: Result Comment: Crit ical Value > 4.0 Performed By: #### L 9200.0000 #### [facility] [address] [place], [address] Protime Coagsen 32.1 SEC High 11.7-14.9 [facility] Comment on above: Performed By: #### L 9200.0000 #### [facility] [address] [place], [address] Renal Profileon 02-28-2024 ALB Normal 3.2-5.0 [facility] Comment on above: Order Comment: RENAL IS FOR Result Comment: FING ERSTICK Performed By: #### L 300.3900, L500.3600 #### [facility] [address] [place], [address] BUN Normal 7-18 [facility] Comment on above: Order Comment: RENAL IS FOR Result Comment: FING ERSTICK Performed By: #### L 300.3900, L500.3600 #### [facility] [address] [place], [address] BUN/CRE Normal 10-20 [facility] Comment on above: Order Comment: RENAL IS FOR Result Comment: FING ERSTICK Performed By: #### L 300.3900, L500.3600 #### [facility] [address] [place], [address] CA,Total Normal 8.5-10.1 [facility] Comment on above: Order Comment: RENAL IS FOR Result Comment: FING ERSTICK Performed By: #### L 300.3900, L500.3600 #### [facility] Laboratory [address] [place], [address] CL Normal 98-107 [facility] Comment on above: Order Comment: RENAL IS FOR Result Comment: FING ERSTICK Performed By: #### L 300.3900, L500.3600 #### [facility] [address] [place], [address] CO2 Normal 21.0-32.0 [facility] Comment on above: Order Comment: RENAL IS FOR Result Comment: FING ERSTICK Performed By: #### L 300.3900, L500.3600 #### [facility] [address] [place], [address] CREAT,SERUM Normal 0.55-1.02 [facility] Comment on above: Order Comment: RENAL IS FOR Result Comment: FING ERSTICK Performed By: #### L 300.3900, L500.3600 #### [facility] [address] [place], [address] EST GFR Normal >60 [facility] Comment on above: Order Comment: RENAL IS FOR Result Comment: FING ERSTICK Performed By: #### L 300.3900, L500.3600 #### [facility] [address] [place], [address] EST GFR - AA Normal >60 [facility] Comment on above: Order Comment: RENAL IS FOR Result Comment: FING ERSTICK Performed By: #### L 300.3900, L500.3600 #### [facility] [address] [place], [address] GLU Normal 74-106 [facility] Comment on above: Order Comment: RENAL IS FOR Result Comment: FING ERSTICK Performed By: #### L 300.3900, L500.3600 #### [facility] Laboratory [address] [place], [address] PHOS Normal 2.5-4.9 [facility] Comment on above: Order Comment: RENAL IS FOR Result Comment: FING ERSTICK Performed By: #### L 300.3900, L500.3600 #### [facility] Laboratory [address] [place], [address] Potassium Normal 3.5-5.1 [facility] Comment on above: Order Comment: RENAL IS FOR Result Comment: FING ERSTICK Performed By: #### L 300.3900, L500.3600 #### [facility] Laboratory [address] [place], [address] Renal Profile Normal 136-145 [facility] Comment on above: Order Comment: RENAL IS FOR Result Comment: FING ERSTICK Performed By: #### L 300.3900, L500.3600 #### [facility] Laboratory [address] [place], [address] CNPNon 02-22-2024 [facility] Telephone (INTMWS) -------- LINDA PERALTA ([id number]) 1945 F Date Time Provider Department 02/22/24 AMOS FLOYD INTMARIFER During your visit today, we recorded the following information about you: Carlos Roe RN 02/22/2024 9:09 AM Signed ----- Message from Amos Floyd MD sent at 02/22/2024 12:42 AM EST ----- Nodule on chest xray is a healed rib fracture. What needs follow up is a 1.1 cm nodule of her right thyroid. 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 Carlos Roe RN 02/22/2024 9:16 AM Signed Pt called and is notified of results and given providers message. Pt voices understanding. 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 Alexander Gregory in [place] at [facility]. She sees him for her [place]'s disease. Will fax this msg and CT scan report to his office. Allergies As of Date: 02/22/2024 Noted Allergy Reaction CIPRO (CIPROFLOXACIN) 07/22/2009 Comments: rash with 500mg dose PENICILLINS 06/17/2002 Comments: rash Date Reviewed: 01/23/2024 Reviewed by: Isha Wright LPN - Fully Assessed Reason for Visit: Results [95] Prescriptions as of 02/22/2024 - Ascorbic Acid 1,000 mg tablet Take 1,000 mg by mouth daily at bedtime. - lisinopril (ZESTRIL) 5 mg tablet Take 1 tablet by mouth every afternoon. - Methenamine Hippurate (HIPREX) 1 gram tablet Take 1 g by mouth daily at bedtime. - simvastatin (ZOCOR) 20 mg tablet Take 1 tablet by mouth daily at bedtime. - hydrocortisone (CORTEF) 10 mg tablet Take 3 tablets by mouth once daily. As directed per endocrinology. - amLODIPine (NORVASC) 5 mg tablet Take 10 mg by mouth once daily. - pantoprazole DR (PROTONIX) 40 mg tablet Take 1 tablet by mouth daily at 6 am. - nitroglycerin sublingual (NITROQUICK) 0.4 mg SL tablet Dissolve 1 tablet under the tongue every 5 minutes as needed. - warfarin (COUMADIN) 2.5 mg tablet Take 2.5 mg by mouth. 2.5 mg daily except 5 mg on Mondays - acetaminophen (TYLENOL) 325 mg tablet Take 650 mg by mouth every 6 hours as needed. Facility-Administered Medications as of 02/22/2024 - denosumab 60 mg injection (PROLIA) Problem List As Of Date 02/22/2024 Noted Resolved Disorder of autonomic nervous system [G90.9] 10/20/2003 Adrenal hypofunction (HCC) [E27.40] DERMATITIS NOS [L25.9] 07/18/2008 IMPAIRED RENAL FUNCT NOS [N25.9] 04/26/2005 07/18/2008 Benign neoplasm of colon [D12.6] 04/26/2005 01/23/2024 ASTHMA UNSPECIFIED [J45.909] 09/21/2005 07/18/2008 Cystocele, midline [N81.11] 07/23/2007 02/27/2017 Nontoxic multinodular goiter [E04.2] 12/11/2007 09/23/2017 Hypercalcemia [E83.52] 03/19/2009 06/13/2023 DVT of lower extremity (deep venous thrombosis)*03/28/2009 09/05/2011 Right Renal Mass [N28.89] 03/28/2009 08/26/2009 Hypokalemia [E87.6] 04/09/2009 05/14/2009 Other Specified Pre-Operative Examination [Z01.*04/09/2009 05/14/2009 SUMMARY [V999.95] 04/25/2009 08/26/2009 Elevation of Cardiac Enzymes [R74.8] 04/25/2009 08/26/2009 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] 08/26/2009 12/30/2009 CKD (chronic kidney disease) stage 3, GFR 30-59*08/26/2009 09/23/2020 Anemia [D64.9] 08/26/2009 09/09/2012 Chronic diarrhea [K52.9] 03/15/2010 03/03/2011 Collagenous colitis [K52.831] 03/30/2010 03/03/2011 ASHD (arteriosclerotic heart disease) [I25.10] 04/25/2009 DVT (deep venous thrombosis) (HCC) [I82.409] 03/23/2012 01/23/2024 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 [M85.80] 11/13/2013 06/30/2023 Chronic nonallergic rhinitis [J31.0] 03/20/2014 Pure hypercholesterolemia [E78.00] 02/17/2015 Gallstones [K80.20] 03/06/2016 08/24/2016 Pain of upper abdomen [R10.10] 03/10/2016 02/27/2017 Personal history of colonic polyps [Z86.0100] 03/10/2016 02/27/2017 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] 11/18/2019 Hypertension [I10] 04/14/2020 Generalized muscle weakness [M62.81] 05/27/2020 06/30/2023 Stage 3b chronic kidney disease (HCC) [N18.32] 07/29/2020 Hypertensive kidney disease with stage 3b chron*07/15/2021 Hip pain [M25.559] 11/01/2022 06/30/2023 Age-related osteoporosis with current pathologi*01/19/2023 Closed displaced fracture of fifth metatarsal b*03/22/2023 Gait abnormality [R26.9] 03/28/2023 01/23/2024 Physical deconditioning [R53.81] 05/31/2023 01/23/2024 Weakness [R53.1] 05/31/2023 NSTEMI (non-ST elevated myocardial infarction) *06/09/2023 01/23/2024 Adrenal insufficiency (HCC) [E27.40] 06/12/2023 Nonrheumatic aortic valve stenosis [I35.0] 06/30/2023 Nodule of lower lobe of right lung needing foll*06/08/2023 02/22/2024 History of DVT of lower extremity and coronary *01/23/2024 Thyroid nodule greater than or equal to 1 cm in*02/22/2024 Encounter Status:Closed by CARLOS ROE on 02/22/24 Normal [facility] Basic metabolic 2000 panelon 02-01-2024 Anion gap [Moles/Vol] 12 mmol/L Normal 8-15 [facility] Comment on above: Order Comment: Speci men Type: BLOOD SPECIMENOrdering Facility: [facility] Address: [address] [place] [address] Performed By: #### 2 4321-2 ####[facility] [id number] [place] [address] [place] Calcium [Mass/Vol] 9.9 mg/dL Normal 8.5-10.2 [facility] Comment on above: Order Comment: Speci men Type: BLOOD SPECIMENOrdering Facility: [facility] Address: [address] [place] [address] Performed By: #### 2 4321-2 ####[facility] [id number] [place] [address] [place] Chloride [Moles/Vol] 108 mmol/L High 98-107 [facility] Comment on above: Order Comment: Speci men Type: BLOOD SPECIMENOrdering Facility: [facility] Address: [address] [place] [address] Performed By: #### 2 4321-2 ####[facility] [id number] [place] [address] [place] CO2 [Moles/Vol] 23 mmol/L Normal 22-30 [facility] Comment on above: Order Comment: Speci men Type: BLOOD SPECIMENOrdering Facility: [facility] Address: [address] [place] [address] Performed By: #### 2 4321-2 ####[facility] [id number] [place] [address] [place] Creatinine [Mass/Vol] 1.36 mg/dL High 0.58-0.96 [facility] Comment on above: Order Comment: Speci men Type: BLOOD SPECIMENOrdering Facility: [facility] Address: [address] [place] [address] Performed By: #### 2 4321-2 ####[facility] [id number] [place] [address] [facility] Creatinine and Glomerular filtration rate.predicted panel (S/P/Bld) 39 mL/min/1.73m??? Low >=60 [facility] Comment on above: Order Comment: Speci men Type: BLOOD SPECIMENOrdering Facility: [facility] Address: [address] [place] [address] Result Comment: Marisabel mated Glomerular Filtration Rate (eGFR) is calculated using the 2021 CKD-EPI creatinine equation. This equation utilizes serum creatinine, sex, and age as parameters. The creatinine assay has traceable calibration to isotope dilution-mass spectrometry. Refer to KDIGO guidelines for clinical interpretation. In patients with unstable renal function, e.g. those with acute kidney injury, the eGFR may not accurately reflect actual GFR. Performed By: #### 2 4321-2 ####[facility] [id number] [place] [address] [place] Glucose [Mass/Vol] 93 mg/dL Normal 74-99 [facility] Comment on above: Order Comment: Speci tiki Type: BLOOD SPECIMENOrdering Facility: [facility] Address: [address] [place] [address] Result Comment: The [place] Diabetes Association (ADA) provides guidance for cutoff values for fasting glucose and random glucose. The ADA defines fasting as no caloric intake for at least 8 hours. Fasting plasma glucose results between 100 to 125 mg/dL indicate increased risk for diabetes (prediabetes). Fasting plasma glucose results greater than or equal to 126 mg/dL meet the criteria for diagnosis of diabetes. In the absence of unequivocal hyperglycemia, results should be confirmed by repeat testing. In a patient with classic symptoms of hyperglycemia or hyperglycemic crisis, random plasma glucose results greater than or equal to 200 mg/dL meet the criteria for diagnosis of diabetes. Reference: Standards of Medical Care in Diabetes 2016, [place] Diabetes Association. Diabetes Care. 2016.39(Suppl 1). Performed By: #### 2 4321-2 ####[facility] [id number] [place] [address] [place] Potassium [Moles/Vol] 3.9 mmol/L Normal 3.7-5.1 [facility] Comment on above: Order Comment: Jody fairbanks Type: BLOOD SPECIMENOrdering Facility: [facility] Address: [address] [id number] Performed By: #### 2 4321-2 ####[facility] [id number] [place] [address] [place] Sodium [Moles/Vol] 143 mmol/L Normal 136-144 [facility] Comment on above: Order Comment: Speci men Type: BLOOD SPECIMENOrdering Facility: [facility] Address: [place] [address] Performed By: #### 2 4321-2 ####[facility] [id number] [place] [address] [place] Urea nitrogen [Mass/Vol] 39 mg/dL High 7-21 [facility] Comment on above: Order Comment: Speci men Type: BLOOD SPECIMENOrdering Facility: [facility] Address: [address] [place] [address] Performed By: #### 2 4321-2 ####[facility] [id number] [place] [address] [place] [address] CHEST WO IVCONon 02-01-20 CT CHEST WO IVCON * * *Final Report* * * DATE OF EXAM: Feb 01 2024 11:20AM [facility] - CT CHEST WO IVCON / PROCEDURE REASON: Nodule of lower lobe of right lung * * * * Physician Interpretation * * * * EXAMINATION: CHEST CT WITHOUT CONTRAST CLINICAL HISTORY: This study is done for further evaluation of a lung nodule seen on chest x-ray Technique: Spiral CT acquisition of the chest from the thoracic inlet to the upper abdomen without contrast. MQ: [id number] CT Radiation dose: Integrated Dose-length product (DLP) for this visit = 180 mGy*cm CT Dose Reduction Employed: Automated exposure control(AEC) and iterative recon Comparison: Chest x-ray 01/01/2024 and 06/08/2023 RESULT: Limitations: None. Lines, tubes, and devices: None. Lung parenchyma and airways: No consolidation. Linear scarring in the lateral right upper lobe. There are a few tiny clustered nodules in the right middle lobe. The central airways are patent. Pleural space: No pleural effusion. No pleural thickening. Lower neck, lymph nodes, and mediastinum: 1.1 cm right thyroid nodule. No lymphadenopathy in the supraclavicular, axillary, mediastinal, or hilar regions. Heart, pericardium, and thoracic vessels: The thoracic aorta and main pulmonary artery are normal in caliber. The cardiac chambers are normal in size. Coronary artery atherosclerotic calcifications are noted, although the study is not optimized for coronary assessment. No pericardial effusion or thickening. Bones and soft tissues: No destructive bone lesion. Degenerative disease of the thoracic spine. Healing fracture of the posterior right 10th rib. Remote healed fracture of the sternum. Chest wall is unremarkable. Upper abdomen: No abnormality in the imaged upper abdomen. Localizer images: No additional findings. IMPRESSION: 1. A few clustered nodules in the right middle lobe which are most likely infectious/inflammatory 2. Healing fracture of the posterior right 10th rib. This likely represents the nodular opacity seen on chest x-ray. 3. 1.1 cm right thyroid nodule ACTIONABLE RESULT: FOLLOW-UP Acuity: Actionable Findings: Endocrine (thyroid) Routing Code: EMI_1 Recommendation: US THYROID/PARATHYROID Time Frame: At the discretion of the clinical team. COMMUNICATION: Results will be communicated with the ordering provider via [employer] staff message or phone message by [facility] within 2 business days of report finalization. --END OF FINDING-- Corporation Lawyer: STEPAN Transcribe Date/Time: Feb 06 2024 12:06P Dictated by : DESIRAE MOSELEY MD This examination was interpreted and the report reviewed and electronically signed by: DESIRAE MOSELEY MD on Feb 06 2024 12:23PM EST [id number] ACTIONABLE Invalid Interpretation Code [facility] Lipid 1996 panelon 4 Cholesterol [Mass/Vol] 169 mg/dL Normal <200 [facility] Comment on above: Order Comment: Speci men Type: BLOOD SPECIMENOrdering Facility: [facility] Address: [address] [place] [address] Result Comment: <200 mg/dL, Desirable 200-239 mg/dL, Borderline high >239 mg/dL, High Performed By: #### 2 4331-1 ####[facility] LABCLIA [id number] [address] [address] [place] [facility] [id number] [place] [address] [place] Cholesterol in HDL [Mass/Vol] 78 mg/dL Normal >39 [facility] Comment on above: Order Comment: Mistyi men Type: BLOOD SPECIMENOrdering Facility: [facility] Address: [address] [place] [address] Result Comment: 40-5 9 mg/dL, Acceptable >59 mg/dL, High: Negative risk factor for coronary heart disease <40 mg/dL, Low: Positive risk factor for coronary heart disease Performed By: #### 2 4331-1 ####[facility] LABCLIA [id number] [address] [id number] [address] Cholesterol in LDL [Mass/Vol] 79 mg/dL Normal <100 [facility] Comment on above: Order Comment: Jody fairbanks Type: BLOOD SPECIMENOrdering Facility: [facility] Address: [address] [place] [address] Result Comment: <100 mg/dL, Optimal 100-129 mg/dL, Near optimal/above optimal 130-159 mg/dL, Borderline high 160-189 mg/dL, High >189 mg/dL, Very high Secondary prevention optimal LDL Cholesterol levels are recommended to be < 70 mg/dL Performed By: #### 2 4331-1 ####[facility] LABCLIA [id number] [address] [id number] [address] [place] Cholesterol in LDL/Cholesterol in HDL [Mass ratio] 1.01 {ratio} Normal <2.54 [facility] Comment on above: Order Comment: Mistyi men Type: BLOOD SPECIMENOrdering Facility: [facility] Address: [address] [place] [address] Result Comment: Refe ysabelce: 1. National Cholesterol Education Program ATP III Guideline At-A-Glance Quick Desk Reference: National Heart, Lung, and Blood Christoval. National Institutes of Health. 2001: NIH Publication No. 01-3305. 2. An International Atherosclerosis Society position paper: global recommendations for the management of dyslipidemia: executive summary, Atherosclerosis. 2014: 232(2):410-413. Performed By: #### 2 4331-1 ####[facility] LABCLIA [id number] [address] [id number] [place] [address] [place] Cholesterol in VLDL [Mass/Vol] 12 mg/dL Normal <30 [facility] Comment on above: Order Comment: Speci men Type: BLOOD SPECIMENOrdering Facility: [facility] Address: [address] [place] [address] Performed By: #### 2 4331-1 ####[facility] LABCLIA [id number] [address] [id number] [place] [address] [place] Cholesterol non HDL [Mass/Vol] 91 mg/dL Normal <130 [facility] Comment on above: Order Comment: Jody fairbanks Type: BLOOD SPECIMENOrdering Facility: [facility] Address: [address] [place] [address] Result Comment: <130 mg/dL, Optimal 130-159 mg/dL, Near optimal/above optimal 160-189 mg/dL, Borderline high 190-219 mg/dL, High >219 mg/dL, Very high Secondary prevention optimal non HDL Cholesterol levels are recommended to be <100 mg/dL Performed By: #### 2 4331-1 ####[facility] LABCLIA [id number] [address] [id number] [place] [address] [place] Cholesterol.total/Chol esterol in HDL [Mass ratio] 2.17 {ratio} Normal <5.10 [facility] Comment on above: Order Comment: Speci men Type: BLOOD SPECIMENOrdering Facility: [facility] Address: [address] [place] [address] Performed By: #### 2 4331-1 ####[facility] LABCLIA [id number] [address] [id number] [place] [address] [place] [facility] FASTING TIME 12 hrs Normal [facility] Comment on above: Order Comment: Speci men Type: BLOOD SPECIMENOrdering Facility: [facility] Address: [address] [place] [address] Performed By: #### 2 4331-1 ####[facility] LABCLIA [id number] [address] [id number] [place] [address] [place] Triglyceride [Mass/Vol] 60 mg/dL Normal <150 [facility] Comment on above: Order Comment: Speci men Type: BLOOD SPECIMENOrdering Facility: [facility] Address: [address] [place] [address] Result Comment: <150 mg/dL, Normal 150-199 mg/dL, Borderline high 200-499 mg/dL, High >499 mg/dL, Very high Performed By: #### 2 4331-1 ####[facility] LABCLIA [id number] [address] [id number] [address] [place] CNOVon 01-23-2024 CNOV Office Visit (INTMWS ) -------- LINDA PERALTA ([id number]) 1945 F Date Time Provider Department 01/23/24 9:40 AM AMOS FLOYD INTMWS During your visit today, we recorded the following information about you: Temperature Pulse Respiration Blood pressure 97.5 degrees 88/minute 16/minute 128/76 Weight Height 64.5 kg 1.575 m Amos Floyd MD 01/23/2024 2:09 PM Signed Linda Peralta is a 78 year old female here for a Medicare wellness visit. Medicare Health Risk Assessment General Health Good Exercise: Minutes/Day 0 min Exercise: Days/Week 0 days Alcohol: Daily Use Never Alcohol: Drinks/Day Patient does not drink Alcohol: 6 or more drinks Never Feel off balance No Concerns: Teeth/Dentures No Concerns: Sexual function No Troubled by feelings None of the above Frequency: Eating healthy diet Nearly every day ADLs requiring help None of the above Safety precautions in home/vehicle Yes Smoke, vape, chews tobacco No Difficulty hearing Yes Difficulty seeing No Current Providers Specialists: I have reviewed specialist-related care of the patient in the medical record. Current care team: Patient Care Team: Amos Floyd MD as PCP - General Outside specialists seen: Cardiology-Dr. Ortega [facility] Nephrology- Dr. Jennifer Tarango Pasting Machine Offbearer- Dr. Isreal Carpio Endocrinology- Dr. Alexander Gregory. Dermatology- Dr. Isha Estrada. Podiatry- Dr. Mega Suarez. Urology: Dr. Jian Swartz. Medical/Family history review Reviewed and updated problem list, medical/surgical/family/ social history, medications, and allergies. Opioid use review Opioid Medications (last 90 days) No data to display Depression Screening DEPRESSION SCREENING Ordered at: 01/23/24 1023 Based on score and interview, patient is: Not at risk for depression Screening tool discussed with patient, and I recommend: No further intervention at this time PHQ-2 Score: 0 ANXIETY SCREENING Ordered at: 01/23/24 1023 Based on score and interview, patient is: Not at risk for anxiety Screening tool discussed with patient, and I recommend: No further intervention at this time RAIN-2 Score: 0 Cognitive screening Mini Cog Score: 5 Cognitive screening reviewed and No further action needed (score 3-5). Functional Observation Was the patient's Timed Up AND Go test unsteady or >= 12 seconds? No Advance Care Planning Surrogate decision maker documented and/or advance directives scanned in chart Measurements BP 128/76 (BP Site: Left Arm, BP Position: Sitting, BP Cuff Size: Large Adult) Pulse 88 Temp 36.4 ?C (97.5 ?F) (Temporal) Resp 16 Ht 157.5 cm (5' 2) Wt 64.5 kg (142 lb 3.2 oz) BMI 26.01 kg/m? Vision Screening: Follows with optometry/ophthalmology Right: Left: Both: Assessment/Plan Medicare annual wellness visit, subsequent (Z00.00) - Counseled on healthy diet and regular exercise - Fall avoidance information provided - Personalized prevention plan provided - Vaccine recommendations. - Colorectal cancer screening reviewed. Even with colon polyps, she was no longer interested in routine screening. Amos Floyd MD 01/23/2024 2:09 PM Signed This note was created using [employer]. Subjective Linda Peralta is a 78 year old female. She was doing well at this time. Her hypertension, hypercalcemia, hypercholesterolemia, arteriosclerotic heart disease, and CKD were stable. She had an incidental right lung nodule that was in need of follow up. Review of Systems Constitutional: Negative for activity change, fatigue and fever. Respiratory: Negative for cough, chest tightness and shortness of breath. Cardiovascular: Negative for chest pain, palpitations and leg swelling. Gastrointestinal: Negative for constipation, diarrhea, nausea and vomiting. Genitourinary: Negative for difficulty urinating and dysuria. Musculoskeletal: Negative for arthralgias. Neurological: Negative for dizziness and headaches. 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 Social History Tobacco Use Smoking status: Never Smokeless tobacco: Never Vaping Use Vapin (more content not included)... Normal [facility] CNPNon 01-19-2024 CNPN Telephone (INTMWS) -------- LINDA PERALTA ([id number]) 1945 F Date Time Provider Department 01/19/24 AMOS FLOYD INTWS During your visit today, we recorded the following information about you: Kelley Rivera LPN 01/19/2024 3:46 PM Signed ----- Message from Amos Floyd MD sent at 01/15/2024 6:48 PM EST ----- Regarding: FW: ACTIONABLE IMAGING RESULT Please call patient to schedule lung of her lung recommended by radiology. She had not been reading her messages. CT of lung ordered. ----- Message ----- From: John Blake Sent: 01/15/2024 12:00 AM EST To: Amos Floyd MD Subject: ACTIONABLE IMAGING RESULT You are listed as the PCP for this patient who has a potential actionable result on a recent imaging study.? The ordering provider for this exam was notified 2 weeks ago.?? If the ordering provider has not resolved the recommendation, please take appropriate action.? If appropriate action has occurred, then consider this message informational to support you in caring for your patient. ? [facility] is committed to? providing safe care with ZERO HARM to all patients and caregivers.? Thank you for your commitment to caring for your patient. Do not respond to this email which is generated by an algorithm.? Responses are not monitored. Exam: XR CHEST 2V FRONTAL/LAT Date: Jan 01 2024 ?1:55PM This report on your patient contains a potential actionable imaging result which may need additional follow-up as recommended below. IMPRESSION: Redemonstration of 2.1 cm nodular density in the right lower lobe. Incidental Finding: Follow-up Acuity: Incidental Finding: Suspicious appearing incidentally detected nodular lung density on CXR Routing Code: RI_1 Recommendation: CT Chest WO IVCON Time Frame: in 4 weeks PLEASE REVIEW THE FULL REPORT FOR ADDITIONAL FINDINGS. If this patient is no longer or was never in your care, please reply to the Imaging Support Services pool so that we can redirect to the appropriate caregiver. Kelley Rivera LPN 01/19/2024 3:50 PM Signed Called pt and reviewed. She says cardiology wanted chest CT repeated next year. She has appt with pcp 01/23/24 she will review then to see when this needs repeated. Allergies As of Date: 01/19/2024 Noted Allergy Reaction CIPRO (CIPROFLOXACIN) 07/22/2009 Comments: rash with 500mg dose PENICILLINS 06/17/2002 Comments: rash Date Reviewed: 08/11/2023 Reviewed by: Tiana Mills LPN - Fully Assessed Reason for Visit: Results [95] Prescriptions as of 01/19/2024 - simvastatin (ZOCOR) 20 mg tablet Take 1 tablet by mouth daily at bedtime. - hydrocortisone (CORTEF) 10 mg tablet Take 3 tablets by mouth once daily. As directed per endocrinology. - amLODIPine (NORVASC) 5 mg tablet Take 10 mg by mouth once daily. - pantoprazole DR (PROTONIX) 40 mg tablet Take 1 tablet by mouth daily at 6 am. - nitroglycerin sublingual (NITROQUICK) 0.4 mg SL tablet Dissolve 1 tablet under the tongue every 5 minutes as needed. - warfarin (COUMADIN) 2.5 mg tablet Take 2.5 mg by mouth. 2.5 mg daily except 5 mg on Mondays - acetaminophen (TYLENOL) 325 mg tablet Take 650 mg by mouth every 6 hours as needed. Facility-Administered Medications as of 01/19/2024 - denosumab 60 mg injection (PROLIA) Problem List As Of Date 01/19/2024 Noted Resolved Disorder of autonomic nervous system [G90.9] 10/20/2003 Adrenal hypofunction (HCC) [E27.40] DERMATITIS NOS [L25.9] 07/18/2008 IMPAIRED RENAL FUNCT NOS [N25.9] 04/26/2005 07/18/2008 BENIGN NEOPLASM LG BOWEL [D12.6] 04/26/2005 ASTHMA UNSPECIFIED [J45.909] 09/21/2005 07/18/2008 Cystocele, midline [N81.11] 07/23/2007 02/27/2017 Nontoxic multinodular goiter [E04.2] 12/11/2007 09/23/2017 Hypercalcemia [E83.52] 03/19/2009 06/13/2023 DVT of lower extremity (deep venous thrombosis)*03/28/2009 09/05/2011 Right Renal Mass [N28.89] 03/28/2009 08/26/2009 Hypokalemia [E87.6] 04/09/2009 05/14/2009 Other Specified Pre-Operative Examination [Z01.*04/09/2009 05/14/2009 SUMMARY [V999.95] 04/25/2009 08/26/2009 Elevation of Cardiac Enzymes [R74.8] 04/25/2009 08/26/2009 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] 08/26/2009 12/30/2009 CKD (chronic kidney disease) stage 3, GFR 30-59*08/26/2009 09/23/2020 Anemia [D64.9] 08/26/2009 09/09/2012 Chronic diarrhea [K52.9] 03/15/2010 03/03/2011 Collagenous colitis [K52.831] 03/30/2010 03/03/2011 ASHD (arteriosclerotic heart disease) [I25.10] 04/25/2009 DVT (deep venous thrombosis) (HCC) [I82.409] 03/23/2012 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 [M85.80] 11/13/2013 06/30/2023 Chronic nonallergic rhinitis [J31.0] 03/20/2014 Pure hypercholesterolemia [E78.00] 02/17/2015 Gallstones [K80.20] 03/06/2016 08/24/2016 Pain of upper abdomen [R10.10] 03/10/2016 02/27/2017 Personal history of colonic polyps [Z86.0100] 03/10/2016 02/27/2017 Atopic neuroderm (more content not included)... [facility] Nurse Visit (FAMPWS) -------- PRABHALINDA GLOVER ([id number]) 1945 F Date Time Provider Department 01/11/24 2:00 PM [facility] your visit today, we recorded the following information about you: Desirae Arzola LPN 01/11/2024 1:42 PM Signed Patient presents for Prolia injection. Denies any problems at this time. Patient instructed on any SE of medication, verbalized understanding and agreed to proceed with treatment. Tolerated injection well. Desirae Arzola LPN Allergies As of Date: 01/11/2024 Noted Allergy Reaction CIPRO (CIPROFLOXACIN) 07/22/2009 Comments: rash with 500mg dose PENICILLINS 06/17/2002 Comments: rash Date Reviewed: 08/11/2023 Reviewed by: Tiana Mills LPN - Fully Assessed Reason for Visit: Imm/Inj [58] Primary Visit Diagnosis:Age-related osteoporosis with current pathological fracture with routine healing [M80.00XD] Prescriptions as of 01/11/2024 - simvastatin (ZOCOR) 20 mg tablet Take 1 tablet by mouth daily at bedtime. - hydrocortisone (CORTEF) 10 mg tablet Take 3 tablets by mouth once daily. As directed per endocrinology. - amLODIPine (NORVASC) 5 mg tablet Take 10 mg by mouth once daily. - pantoprazole DR (PROTONIX) 40 mg tablet Take 1 tablet by mouth daily at 6 am. - nitroglycerin sublingual (NITROQUICK) 0.4 mg SL tablet Dissolve 1 tablet under the tongue every 5 minutes as needed. - warfarin (COUMADIN) 2.5 mg tablet Take 2.5 mg by mouth. 2.5 mg daily except 5 mg on Mondays - acetaminophen (TYLENOL) 325 mg tablet Take 650 mg by mouth every 6 hours as needed. Facility-Administered Medications as of 01/11/2024 - denosumab 60 mg injection (PROLIA) Problem List As Of Date 01/11/2024 Noted Resolved Disorder of autonomic nervous system [G90.9] 10/20/2003 Adrenal hypofunction (HCC) [E27.40] DERMATITIS NOS [L25.9] 07/18/2008 IMPAIRED RENAL FUNCT NOS [N25.9] 04/26/2005 07/18/2008 BENIGN NEOPLASM LG BOWEL [D12.6] 04/26/2005 ASTHMA UNSPECIFIED [J45.909] 09/21/2005 07/18/2008 Cystocele, midline [N81.11] 07/23/2007 02/27/2017 Nontoxic multinodular goiter [E04.2] 12/11/2007 09/23/2017 Hypercalcemia [E83.52] 03/19/2009 06/13/2023 DVT of lower extremity (deep venous thrombosis)*03/28/2009 09/05/2011 Right Renal Mass [N28.89] 03/28/2009 08/26/2009 Hypokalemia [E87.6] 04/09/2009 05/14/2009 Other Specified Pre-Operative Examination [Z01.*04/09/2009 05/14/2009 SUMMARY [V999.95] 04/25/2009 08/26/2009 Elevation of Cardiac Enzymes [R74.8] 04/25/2009 08/26/2009 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] 08/26/2009 12/30/2009 CKD (chronic kidney disease) stage 3, GFR 30-59*08/26/2009 09/23/2020 Anemia [D64.9] 08/26/2009 09/09/2012 Chronic diarrhea [K52.9] 03/15/2010 03/03/2011 Collagenous colitis [K52.831] 03/30/2010 03/03/2011 ASHD (arteriosclerotic heart disease) [I25.10] 04/25/2009 DVT (deep venous thrombosis) ([facility]) [I82.409] 03/23/2012 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 [M85.80] 11/13/2013 06/30/2023 Chronic nonallergic rhinitis [J31.0] 03/20/2014 Pure hypercholesterolemia [E78.00] 02/17/2015 Gallstones [K80.20] 03/06/2016 08/24/2016 Pain of upper abdomen [R10.10] 03/10/2016 02/27/2017 Personal history of colonic polyps [Z86.0100] 03/10/2016 02/27/2017 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] 11/18/2019 Hypertension [I10] 04/14/2020 Generalized muscle weakness [M62.81] 05/27/2020 06/30/2023 Stage 3b chronic kidney disease (HCC) [N18.32] 07/29/2020 Hypertensive kidney disease with stage 3b chron*07/15/2021 Hip pain [M25.559] 11/01/2022 06/30/2023 Age-related osteoporosis with current pathologi*01/19/2023 Closed displaced fracture of fifth metatarsal b*03/22/2023 Gait abnormality [R26.9] 03/28/2023 Physical deconditioning [R53.81] 05/31/2023 Weakness [R53.1] 05/31/2023 NSTEMI (non-ST elevated myocardial infarction) *06/09/2023 Adrenal insufficiency (HCC) [E27.40] 06/12/2023 Nonrheumatic aortic valve stenosis [I35.0] 06/30/2023 Nodule of lower lobe of right lung needing foll*06/08/2023 Encounter Status:Closed by DESIRAE ARZOLA on 01/11/24 Normal [facility] Protime w/INR Fingerstickon 01-04-2024 INR Coag (PPP) [Relative time] 2.8 {INR} Normal [facility] Comment on above: Result Comment: Crit ical Value > 4.0 Performed By: #### L 300.3900, L500.2500 #### [facility] [address] [place], [place], [id number] Protime [place] 29.2 SEC High 11.7-14.9 [facility] Comment on above: Performed By: #### L 300.3900, L500.2500 #### [facility] [address] [place], [address] XR CHEST 2V FRONTAL/LATon XR CHEST 2V FRONTAL/LAT * * *Final Report* * * DATE OF EXAM: Jan 01 2024 1:55PM WOX 5291 - XR CHEST 2V FRONTAL/LAT / PROCEDURE REASON: Abnormal finding of diagnostic imaging * * * * Physician Interpretation * * * * EXAMINATION: CHEST RADIOGRAPH (2 VIEW FRONTAL and LATERAL) CLINICAL HISTORY: Abnormal finding of diagnostic imaging MQ: XC2_6 EXAM DATE/TIME: 01/01/2024 1:55 PM COMPARISON: Chest x-ray dated 06/08/2023 RESULT: Lines, tubes, and devices: None. Lungs and pleura: Redemonstration of approximately 2.1 cm nodular density in the right lower lobe. No pleural effusion or pneumothorax. Cardiomediastinal silhouette: Stable cardiomediastinal silhouette. Bones and soft tissues: Degenerative changes are present within the thoracic spine. IMPRESSION: Redemonstration of 2.1 cm nodular density in the right lower lobe. Incidental Finding: Follow-up Acuity: Incidental Finding: Suspicious appearing incidentally detected nodular lung density on CXR Routing Code: RI_1 Recommendation: CT Chest WO IVCON Time Frame: in 4 weeks COMMUNICATION:? Results will be communicated with the ordering provider via [employer] staff message by Imaging Support Services within 2 business days of report finalization. Corporation Lawyer: STEPAN Transcribe Date/Time: Jan 01 2024 1:57P Dictated by : ELIZABETH GEORGE MD This examination was interpreted and the report reviewed and electronically signed by: ELIZABETH GEORGE MD on Jan 01 2024 1:58PM EST [id number] ACTIONABLE Invalid Interpretation Code [facility] XR Chest PA and LateralOrder ed By: [facility] Provider on 01-01-2024 Interpretation and review of laboratory results Abnormal [facility] Radiology Result ACTIONABLE Abnormal [facility] Comment on above: This report contains an incidental or actionable finding. This finding may be a new finding separate from the reason your provider ordered the imaging test or it may be an already known finding that needs additional or continued follow-up. Because of this incidental or actionable finding, you may need another test (imaging or a different type of test). Please contact your provider for the next steps. [facility] XR Chest PA and Lateralon IMPRESSION: Redemonstration of 2.1 cm nodular density in the right lower lobe. Incidental Finding: Follow-up Acuity: Incidental Finding: Suspicious appearing incidentally detected nodular lung density on CXR Routing Code: RI_1 Recommendation: CT Chest WO IVCON Time Frame: in 4 weeks COMMUNICATION:? Results will be communicated with the ordering provider via [employer] staff message by Imaging Support Services within 2 business days of report finalization. Corporation Lawyer: STEPAN Transcribe Date/Time: Jan 01 2024 1:57P Dictated by : ELIZABETH GEORGE MD This examination was interpreted and the report reviewed and electronically signed by: ELIZABETH GEORGE MD on Jan 01 2024 1:58PM [facility] DIVISION OF RADIOLOGY * * *Final Report* * * DATE OF EXAM: Jan 01 2024 1:55PM WOX 5291 - XR CHEST 2V FRONTAL/LAT / PROCEDURE REASON: Abnormal finding of diagnostic imaging * * * * Physician Interpretation * * * * EXAMINATION: CHEST RADIOGRAPH (2 VIEW FRONTAL & LATERAL) CLINICAL HISTORY: Abnormal finding of diagnostic imaging MQ: XC2_6 EXAM DATE/TIME: 01/01/2024 1:55 PM COMPARISON: Chest x-ray dated 06/08/2023 RESULT: Lines, tubes, and devices: None. Lungs and pleura: Redemonstration of approximately 2.1 cm nodular density in the right lower lobe. No pleural effusion or pneumothorax. Cardiomediastinal silhouette: Stable cardiomediastinal silhouette. Bones and soft tissues: Degenerative changes are present within the thoracic spine. DIVISION [facility] RADIOLOGY [facility] * * *Final Report* * * DATE OF EXAM: Jan 01 2024 1:55PM WOX 5291 - XR CHEST 2V FRONTAL/LAT / PROCEDURE REASON: Abnormal finding of diagnostic imaging * * * * Physician Interpretation * * * * EXAMINATION: CHEST RADIOGRAPH (2 VIEW FRONTAL & LATERAL) CLINICAL HISTORY: Abnormal finding of diagnostic imaging MQ: XC2_6 EXAM DATE/TIME: 01/01/2024 1:55 PM COMPARISON: Chest x-ray dated 06/08/2023 RESULT: Lines, tubes, and devices: None. Lungs and pleura: Redemonstration of approximately 2.1 cm nodular density in the right lower lobe. No pleural effusion or pneumothorax. Cardiomediastinal silhouette: Stable cardiomediastinal silhouette. Bones and soft tissues: Degenerative changes are present within the thoracic spine. IMPRESSION IMPRESSION: Redemonstration of 2.1 cm nodular density in the right lower lobe. Incidental Finding: Follow-up Acuity: Incidental Finding: Suspicious appearing incidentally detected nodular lung density on CXR Routing Code: RI_1 Recommendation: CT Chest WO IVCON Time Frame: in 4 weeks COMMUNICATION:? Results will be communicated with the ordering provider via [employer] staff message by Imaging Support Services within 2 business days of report finalization. Corporation Lawyer: PSCB Transcribe Date/Time: Jan 01 2024 1:57P Dictated by : ELIZABETH GEORGE MD This examination was interpreted and the report reviewed and electronically signed by: ELIZABETH GEORGE MD on Jan 01 2024 1:58PM [facility] Radiology Study observation (narrative) [facility] 12-26-2023 [facility] Telephone (INTMWS) -------- LINDA PERALTA ([id number]) 1945 F Date Time Provider Department 12/26/23 AMOS FLOYD INTWS During your visit today, we recorded the following information about you: Kelley Rivera LPN 12/26/2023 4:23 PM Addendum Bone density completed at [facility]. View External Imaging - Bone Density [ID [id number]] Previously completed PA for prolia to be dispensed to retail pharmacy with pharmacy benefits. This was approved with a 100$ copay. Pt said she never had to pay for this. Can try to to prior auth prolia through medical benefits (called buy and bill which means [facility] bills insurance and it is given in the office with a nurse visit) if prilia is still recommended Amos Floyd MD 12/27/2023 11:54 AM Signed ASSESSMENT/PLAN: 1. Age-related osteoporosis with current pathological fracture with routine healing - ICD9: V54.29, 733.01, ICD10: M80.00XD - continue tx with denosumab (Prolia). - Reviewed the need for Calcium and Vitamin D supplements and weight bearing exercise as tolerated - BMD showed improvement from 2020 so continuation of treatment is needed. MD Adriana Gil Helen E, LPN 12/27/2023 2:39 PM Signed Left message for Patient to call office. Milagros Ortiz LPN, LPN 12/27/2023 3:06 PM Signed Patient returned call and went over results, notes from Dr Floyd with understanding. Patient said she is not taking any Calcium or Vitamin D. What dose and is she to start taking both? Amos Floyd MD 12/27/2023 5:48 PM Signed I see she still recently had issues with high calcium and her vitamin D is in a good range. So for her, at this time, additional calcium and vitamin D is not recommended. Ariella Christianson RN 12/27/2023 5:57 PM Signed Attempted to contact patient. No answer. Try again. ROSS Rodriguez Janice, LPN 12/28/2023 10:09 AM Signed Called pt and she was notified. She is willing to keep getting the prolia if insurance will cover. Will contact them for PA for prolia. Kelley Rivera LPN 12/28/2023 11:56 AM Addendum Called Pattie at [phone]. This PA is completed with pharmacy to aileen them at [phone]. This reference number is [id number]. Called pharmacy and they report there is a PA already on file for Dr. Rey Vann covered until 05/11/24. Did start a new PA for pcp. This was reviewed over the phone and PA approved from 12/28/23 to 12/27/24. This auth number is [id number]. They will also fax approval notice too. Kelley Rivera LPN 12/28/2023 11:57 AM Signed Pt notified. Nurse visit arranged for 01/01/24. Allergies As of Date: 12/26/2023 Noted Allergy Reaction CIPRO (CIPROFLOXACIN) 07/22/2009 Comments: rash with 500mg dose PENICILLINS 06/17/2002 Comments: rash Date Reviewed: 08/11/2023 Reviewed by: Tiana Mills LPN - Fully Assessed Reason for Visit: Results [95] Primary Visit Diagnosis:Age-related osteoporosis with current pathological fracture with routine healing [M80.00XD] Prescriptions as of 12/28/2023 - simvastatin (ZOCOR) 20 mg tablet Take 1 tablet by mouth daily at bedtime. - hydrocortisone (CORTEF) 10 mg tablet Take 3 tablets by mouth once daily. As directed per endocrinology. - amLODIPine (NORVASC) 5 mg tablet Take 10 mg by mouth once daily. - pantoprazole DR (PROTONIX) 40 mg tablet Take 1 tablet by mouth daily at 6 am. - nitroglycerin sublingual (NITROQUICK) 0.4 mg SL tablet Dissolve 1 tablet under the tongue every 5 minutes as needed. - warfarin (COUMADIN) 2.5 mg tablet Take 2.5 mg by mouth. 2.5 mg daily except 5 mg on Mondays - acetaminophen (TYLENOL) 325 mg tablet Take 650 mg by mouth every 6 hours as needed. Facility-Administered Medications as of 12/28/2023 - denosumab 60 mg injection (PROLIA) Problem List As Of Date 12/26/2023 Noted Resolved Disorder of autonomic nervous system [G90.9] 10/20/2003 Adrenal hypofunction (HCC) [E27.40] DERMATITIS NOS [L25.9] 07/18/2008 IMPAIRED RENAL FUNCT NOS [N25.9] 04/26/2005 07/18/2008 BENIGN NEOPLASM LG BOWEL [D12.6] 04/26/2005 ASTHMA UNSPECIFIED [J45.909] 09/21/2005 07/18/2008 Cystocele, midline [N81.11] 07/23/2007 02/27/2017 Nontoxic multinodular goiter [E04.2] 12/11/2007 09/23/2017 Hypercalcemia [E83.52] 03/19/2009 06/13/2023 DVT of lower extremity (deep venous thrombosis)*03/28/2009 09/05/2011 Right Renal Mass [N28.89] 03/28/2009 08/26/2009 Hypokalemia [E87.6] 04/09/2009 05/14/2009 Other Specified Pre-Operative Examination [Z01.*04/09/2009 05/14/2009 SUMMARY [V999.95] 04/25/2009 08/26/2009 Elevation of Cardiac Enzymes [R74.8] 04/25/2009 08/26/2009 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 Normal [facility] Dexa Bone Density Studyon Dexa Bone Density Study [facility] Imaging Services [address] [place] [address] [id number] Dexa Bone Density Study MR#: [id number] Acct: [id number] Name: LINDA PERALTA Rep #: [id number] : 1945 F 78 From: Geovanni vargas MD PCP: Dr. Amos Floyd MD Status: [facility] Study: Dexa Bone Density Study Date of Exam: 12/21/23 Exam# [id number] Ordering Dr: Amos Floyd MD [id number] STUDY: DUAL ENERGY X-RAY ABSORPTIOMETRY / DXA REASON FOR EXAM: Female, 78 years old. 733.00OsteoporosisBONE DENSITY REASON FOR EXAM TECHNIQUE: Bone Mineral Density (BMD) measurements of lumbar spine and bilateral hips were obtained. COMPARISON: Comparison is made with prior study October 09, 2019. FINDINGS: Lumbar Spine (L1-L4): g/cm2 (1.053) / T-score (0.4) / Z-score (3.0) Findings are suggestive of normal bone density with a low fracture risk. Left Femur Total: g/cm2 (0.890) / T-score (-0.4) / Z-score (1.7) Left Femoral Neck: g/cm2 (0.729) / T-score (-1.1) / Z-score (1.3) Right Femur Total: g/cm2 (0.878) / T-score (-0.5) / Z-score (1.6) Right Femoral Neck: g/cm2 (0.717) / T-score (-1.2) / Z-score (1.1) The T-Scores on the most recent prior examination were: Lumbar Spine (L1-L4): There has been worsening of bone density since the previous examination. Left Femur Total: which represents an improvement of 5.7%. Right Femur Total: which represents an improvement of 4.7%. BD/Dexa Bone Density Study IMPRESSION: The patient is considered osteopenic as outlined below according to World Tre Organization (WHO) criteria with a low fracture risk. There has been improvement of bone density since the previous examination. Reference Information: The T-score is the number of standard deviations above or below the standard which is normal for young adults at their peak bone mineral density. The World Health Organization (WHO) interprets the T-scores as follows: Above -1 Normal bone density Between -1 and -2.5 Osteopenia Equal to / or below -2.5 Osteoporosis As a practical clinical guideline, osteopenia may be graded as follows: Mild -1 through -1.5 Moderate -1.6 through -2.0 Severe -2.1 through -2.4 The Z-score is the number of standard deviations above or below age-matched controls. A Z-score of less than -1.5 would be considered abnormal. References: 1. NIH Osteoporosis and Related Bone Diseases www osteo.org 2. International Society for Clinical Densitometry www iscd.org 3. National Osteoporosis Foundation www nof.org Electronically Signed: Geovanni Song MD at 12:54 EST , CC: Dr. Amos Floyd MD Corporation Lawyer: Signed [facility] 12-20-2023 [facility] Telephone (RAAFVC) -------- LINDA PERALTA ([id number]) 1945 F Date Time Provider Department 12/20/23 NATHALY REN During your visit today, we recorded the following information about you: Allergies As of Date: 12/20/2023 Noted Allergy Reaction CIPRO (CIPROFLOXACIN) 07/22/2009 Comments: rash with 500mg dose PENICILLINS 06/17/2002 Comments: rash Date Reviewed: 08/11/2023 Reviewed by: Tiana Mills LPN - Fully Assessed Prescriptions as of 12/20/2023 - simvastatin (ZOCOR) 20 mg tablet Take 1 tablet by mouth daily at bedtime. - hydrocortisone (CORTEF) 10 mg tablet Take 3 tablets by mouth once daily. As directed per endocrinology. - amLODIPine (NORVASC) 5 mg tablet Take 10 mg by mouth once daily. - pantoprazole DR (PROTONIX) 40 mg tablet Take 1 tablet by mouth daily at 6 am. - nitroglycerin sublingual (NITROQUICK) 0.4 mg SL tablet Dissolve 1 tablet under the tongue every 5 minutes as needed. - warfarin (COUMADIN) 2.5 mg tablet Take 2.5 mg by mouth. 2.5 mg daily except 5 mg on Mondays - acetaminophen (TYLENOL) 325 mg tablet Take 650 mg by mouth every 6 hours as needed. Facility-Administered Medications as of 12/20/2023 - denosumab 60 mg injection (PROLIA) Problem List As Of Date 12/20/2023 Noted Resolved Disorder of autonomic nervous system [G90.9] 10/20/2003 Adrenal hypofunction (HCC) [E27.40] DERMATITIS NOS [L25.9] 07/18/2008 IMPAIRED RENAL FUNCT NOS [N25.9] 04/26/2005 07/18/2008 BENIGN NEOPLASM LG BOWEL [D12.6] 04/26/2005 ASTHMA UNSPECIFIED [J45.909] 09/21/2005 07/18/2008 Cystocele, midline [N81.11] 07/23/2007 02/27/2017 Nontoxic multinodular goiter [E04.2] 12/11/2007 09/23/2017 Hypercalcemia [E83.52] 03/19/2009 06/13/2023 DVT of lower extremity (deep venous thrombosis)*03/28/2009 09/05/2011 Right Renal Mass [N28.89] 03/28/2009 08/26/2009 Hypokalemia [E87.6] 04/09/2009 05/14/2009 Other Specified Pre-Operative Examination [Z01.*04/09/2009 05/14/2009 SUMMARY [V999.95] 04/25/2009 08/26/2009 Elevation of Cardiac Enzymes [R74.8] 04/25/2009 08/26/2009 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] 08/26/2009 12/30/2009 CKD (chronic kidney disease) stage 3, GFR 30-59*08/26/2009 09/23/2020 Anemia [D64.9] 08/26/2009 09/09/2012 Chronic diarrhea [K52.9] 03/15/2010 03/03/2011 Collagenous colitis [K52.831] 03/30/2010 03/03/2011 ASHD (arteriosclerotic heart disease) [I25.10] 04/25/2009 DVT (deep venous thrombosis) (HCC) [I82.409] 03/23/2012 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 [M85.80] 11/13/2013 06/30/2023 Chronic nonallergic rhinitis [J31.0] 03/20/2014 Pure hypercholesterolemia [E78.00] 02/17/2015 Gallstones [K80.20] 03/06/2016 08/24/2016 Pain of upper abdomen [R10.10] 03/10/2016 02/27/2017 Personal history of colonic polyps [Z86.0100] 03/10/2016 02/27/2017 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] 11/18/2019 Hypertension [I10] 04/14/2020 Generalized muscle weakness [M62.81] 05/27/2020 06/30/2023 Stage 3b chronic kidney disease (HCC) [N18.32] 07/29/2020 Hypertensive kidney disease with stage 3b chron*07/15/2021 Hip pain [M25.559] 11/01/2022 06/30/2023 Age-related osteoporosis with current pathologi*01/19/2023 Closed displaced fracture of fifth metatarsal b*03/22/2023 Gait abnormality [R26.9] 03/28/2023 Physical deconditioning [R53.81] 05/31/2023 Weakness [R53.1] 05/31/2023 NSTEMI (non-ST elevated myocardial infarction) *06/09/2023 Adrenal insufficiency (HCC) [E27.40] 06/12/2023 Nonrheumatic aortic valve stenosis [I35.0] 06/30/2023 Nodule of lower lobe of right lung needing foll*06/08/2023 Encounter Status:Closed by NATHALY REN on 12/20/23 Normal [facility] Protime w/INR Fingerstickon 12-20-2023 INR Coag (PPP) [Relative time] 1.9 {INR} Normal [facility] Comment on above: Result Comment: Crit ical Value > 4.0 Performed By: #### L 9200.0000 #### [facility] Laboratory [address] [place], [address] Protime Coagsen 21.1 SEC High 11.7-14.9 [facility] Comment on above: Performed By: #### L 9200.0000 #### [facility] Laboratory [address] [place], [place], [address] CREATININE FINGERSTICKon Creatinine [Mass/Vol] 1.4 mg/dL High 0.55-1.02 [facility] Comment on above: Performed By: #### L 300.3900, L500.2500 #### [facility] [address] [place], [address] GFR/1.73 sq M.predicted among non-blacks MDRD (S/P/Bld) [Vol rate/Area] 40.0000 mL/min/{1.73_m2} Low >60 [facility] Comment on above: Performed By: #### L 300.3900, L500.2500 #### [facility] [address] [place], [address] CT Abd/Pelvis W[facility]23 CT Abd/Pelvis W/WO Contrast [facility] Imaging Services [address] [place] [address] CT Abd/Pelvis W/WO Contrast MR#: [id number] Acct: [id number] Name: LINDA PERALTA Rep #: [id number] : 1945 F 78 From: Jaylene Rowell MD PCP: Dr. Amos Floyd MD Status: [facility] Study: CT Abd/Pelvis W/WO Contrast Date of Exam: 11/20 09/12 Exam# [id number] Ordering Dr: Yasir Swartz MD [id number] EXAM: CT ABDOMEN AND PELVIS WITHOUT AND WITH INTRAVENOUS CONTRAST CLINICAL INDICATION: DYSURIA/SIGNS AND SC OF GENITOURINARY SX TECHNIQUE: Helically acquired images were obtained of the abdomen and pelvis without and with intravenous contrast. This CT exam was performed using one or more of the following dose reduction techniques: automated exposure control, adjustment of the mA and/or kV according to patient size, and/or use of iterative reconstruction technique. CONTRAST: IV 100mL Isovue-300 RADIATION DOSE: CTDIvol = 12.91 mGy, DLP = 1027.67 mGy-cm. COMPARISON: May 15, 2023. FINDINGS: LOWER THORAX: The heart is not fully included. ABDOMEN: LIVER: Unremarkable. Homogeneous. No focal mass. GALLBLADDER AND BILE DUCTS: Cholecystectomy. No intra- or extrahepatic biliary ductal dilation. PANCREAS: Unremarkable. No focal cystic or solid mass. SPLEEN: Coarse calcification in the splenic hilum appears stable. ADRENALS: Unremarkable. No nodules. KIDNEYS AND URETERS: Scarring at the right kidney with at least 3 presumed cyst and subcortical scarring, no complex mass. Normal renal excretion on delayed phase exam with contrast throughout the right ureter and contrast in the bladder. Left kidney is not present, similar to prior exam. STOMACH AND BOWEL: Mildly thick-walled appearance of the collapsed rectum and anus may be due to proctitis-distal colitis. Mildly prominent small bowel content, no evidence of a high-grade obstruction. Diverticulosis of the distal descending and sigmoid colon, no evidence of acute diverticulitis. Mild diverticulosis of the right colon. Mild stool in the right colon. Mild gas in mid to distal colon. PELVIS: APPENDIX: Nonvisualized appendix. BLADDER: See above. REPRODUCTIVE: Hysterectomy. ABDOMEN and PELVIS: INTRAPERITONEAL SPACE: Unremarkable. No ascites or other fluid collection. No free air. BONES/JOINTS: There is similar callus at a right posterior 10th rib fracture. Degenerative spine changes, including marked disc space narrowing at L4-5 mild anterior spondylosis. Slight anterolisthesis of L3 with respect to L4, stable findings compared to prior exam. Sclerosis of S3, presumably old fracture. No suspicious lytic or blastic abnormality. SOFT TISSUES: Unremarkable. No discrete abdominal or pelvic wall hernia. VASCULATURE: IVC filter again noted. Abdominal aorta is non-dilated. LYMPH NODES: Unremarkable. No enlarged lymph nodes. CT/CT Abd/Pelvis W/WO Contrast IMPRESSION: 1. Absent left kidney. Similar appearance of right kidney with cortical scarring and thinning and multiple cysts. No evidence of typical pyelonephritis or cystitis. Normal renal enhancement and excretion. 2. Suspicion of distal colitis-proctitis, especially involving the rectum. Collapsed and mildly thick-walled. 3. Scattered diverticulosis. No evidence of diverticulitis. 4. Zone of sclerosis across the sacrum at S3, larger than expected for infiltrating mass, suspected sclerosis from old healed fracture. There is old healed right posterior rib fracture. Correlate with history of known sacral fracture or history of neoplasm. This is new from 2013 but similar to May 15, 2023. 5. IVC filter. Please correlate with whether there is a management plan in place for the IVC filter. Recommendation per radiology quality guidelines 2023: Consider nonemergent follow-up with interventional clinician if there is no management plan for the IVC filter. Electronically Signed: Jaylene Rowell MD at 20:12 EDT , CC: Dr. Yasir Swartz MD; Dr. Amos Floyd MD Corporation Lawyer: Signed [facility] 12-05-2023 CNPN Telephone (INTMWS) -------- LINDA PERALTA ([id number]) 1945 F Date Time Provider Department 12/05/23 AMOS FLOYD INTMWS During your visit today, we recorded the following information about you: Kelley Rivera LPN 12/05/2023 4:20 PM Signed PA needed for prolia. Kelley Rivera LPN 12/06/2023 12:27 PM Signed In review the prolia is already approved with her insurance from 02/20/23 to 02/20/2024 through [facility]. Will call her insurance to see if we can just change the provider and place of service. There would be no change with her clinical requirements. Kelley Rivera LPN 12/06/2023 3:02 PM Signed Called [employer] and pt no longer covered. This was terminated 02/20/23. Kelley Rivera LPN 12/06/2023 3:02 PM Signed Per benefits inquiry it appears pt is covered now with [employer] medicare. Kelley Rivera LPN 12/06/2023 3:57 PM Signed This went to pharmacy benefits. LINDA PERALTA (Cross: [id number]) - [id number] Prolia 60MG/ML syringes status: PA Request Created: December 06, 2023 Sent: December 06, 2023 Will see what their response is,may have to call for medical benefits PA coverage to review. Kelley Rivera LPN 12/06/2023 4:32 PM Signed Pt notified we are waiting for insurance to review a prior auth for the prolia Kelely Rivera LPN 12/07/2023 10:12 AM Signed Fax rec'd from [facility] regarding the prolia. They note the prescription is already covered by the plan with no restrictions with pharmacy D plan. Pt will need rx to local pharmacy and bring to an appt with nurse schedule to be given here. Amos Floyd MD 12/07/2023 12:17 PM Signed The following approved medication requests have been transmitted electronically. Requested Prescriptions Signed Prescriptions Disp Refills denosumab (PROLIA) 60 mg/mL 1 mL 1 Sig: Inject 1 mL subcutaneously once every 6 months. Authorizing Provider: AMOS FLOYD MD Curren, Janice, LPN 12/07/2023 2:42 PM Signed Called the pharmacy and they report this is covered and pt to pay 100$. They will order this. Message left to pt to return call to a nurse. She can contact the pharmacy to see when she can pick this up. She needs to review the storage for this when she gets this. She can arrange for a nurse visit to bring in the injection for the nurse to give. Jorge Victoria RN 12/08/2023 10:44 AM Signed Patient returned call and given message below. Patient reports she's never had to pay $100, and she has been getting this every 6 mths. Patient asking if she can stop taking it? Reports it really hasn't helped her. Reports she broke her foot last year. Please advise patient, and cancel Rx at [facility]. Amos Floyd MD 12/09/2023 12:12 PM Signed Okay. Do bone density and we'll evaluate options at her follow up in January. Torsten Butler MA 12/11/2023 9:21 AM Signed Patient notified, verbalized understanding. DXA scheduled for 12/20 Allergies As of Date: 12/05/2023 Noted Allergy Reaction CIPRO (CIPROFLOXACIN) 07/22/2009 Comments: rash with 500mg dose PENICILLINS 06/17/2002 Comments: rash Date Reviewed: 08/11/2023 Reviewed by: Tiana Mills LPN - Fully Assessed Reason for Visit: Insurance Authorization [[id number]] Primary Visit Diagnosis:Age-related osteoporosis with current pathological fracture with routine healing [M80.00XD] Prescriptions as of 12/11/2023 - simvastatin (ZOCOR) 20 mg tablet Take 1 tablet by mouth daily at bedtime. - hydrocortisone (CORTEF) 10 mg tablet Take 3 tablets by mouth once daily. As directed per endocrinology. - amLODIPine (NORVASC) 5 mg tablet Take 10 mg by mouth once daily. - pantoprazole DR (PROTONIX) 40 mg tablet Take 1 tablet by mouth daily at 6 am. - nitroglycerin sublingual (NITROQUICK) 0.4 mg SL tablet Dissolve 1 tablet under the tongue every 5 minutes as needed. - warfarin (COUMADIN) 2.5 mg tablet Take 2.5 mg by mouth. 2.5 mg daily except 5 mg on Mondays - acetaminophen (TYLENOL) 325 mg tablet Take 650 mg by mouth every 6 hours as needed. Facility-Administered Medications as of 12/11/2023 - denosumab 60 mg injection (PROLIA) Problem List As Of Date 12/05/2023 Noted Resolved Disorder of autonomic nervous system [G90.9] 10/20/2003 Adrenal hypofunction (HCC) [E27.40] DERMATITIS NOS [L25.9] 07/18/2008 IMPAIRED RENAL FUNCT NOS [N25.9] 04/26/2005 07/18/2008 BENIGN NEOPLASM LG BOWEL [D12.6] 04/26/2005 ASTHMA UNSPECIFIED [J45.909] 09/21/2005 07/18/2008 Cystocele, midline [N81.11] 07/23/2007 02/27/2017 Nontoxic multinodular goiter [E04.2] 12/11/2007 09/23/2017 Hypercalcemia [E83.52] 03/19/2009 06/13/2023 DVT of lower extremity (deep venous thrombosis)*03/28/2009 09/05/2011 Right Renal Mass [N28.89] 03/28/2009 08/26/2009 Hypokalemia [E87.6] 04/09/2009 05/14/2009 Other Specified Pre-Operative Examination [Z01.*04/09/2009 05/14/2009 SUMMARY [V999.95] 04/26/19 (more content not included)... Normal [facility] Cardiology Visit Reporton Cardiology Visit Report [facility] [address] [place] [address] OFFICE VISIT Date of Service: 11/28/23 MR#: [id number] Acct: [id number] Name: LINDA PERALTA Rep #: [id number] : 1945 Provider: PEDRO samuel Age/Sex: 78/F [facility] [facility] Status: Signed HPI HPI History of Present Illness Details: Linda Peralta is a 78 year-old female who presents to the office for a cardiovascular follow up visit. She has a history of a non-ST myocardial infarction in 2009. It was felt that this was secondary to coronary embolism. She had a left heart catheterization at that time that did not demonstrate any significant coronary artery disease. She also has a history of hyperlipidemia, DVT, and PE. 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 Patient was hospitalized November 17, 2021 for hypotension, elevated troponin and acute kidney injury. She had presented to the emergency room complaining of lightheadedness. On admission she was noted to be significantly hypotensive with blood pressures systolically in the 60s. Creatinine did elevate to 2.6. Her initial troponin was 516 and it did trend downwards. Echocardiogram demonstrated an EF of 65% with mild concentric LVH. She was treated aggressively for her hypotension with 3 L of fluid. Of note prior to her admission she did have COVID. Patient was recently discharged from [facility] in May 2023 for an Moris's crisis. During her hospitalization she had mild chest pressure, her troponins were elevated. She did undergo a stress test which demonstrated no ischemia. Her echocardiogram at that time demonstrated moderate to severe aortic valve stenosis. She was discharged home to follow-up with cardiology. From a cardiac standpoint, the patient is doing well. She denies any palpitations, chest pain, pressure or heaviness. She does have occasional SOB with walking longer distances. She denies Orthopnea, and PND. She does not have bleeding issues; no blood in urine, stool or nosebleeds. She denies any decrease in energy level, myalgias, or claudication. She does not have edema, or sudden weight gain. She does have occasional lightheadedness. She denies dizziness, syncopal or near syncopal episodes, and headaches. Intake Vital Signs 07/26/23 14:03 11/28/23 11:06 11/28/23 11:07 Height 5 ft 2 in 5 ft 2 in 5 ft 2 in Weight: 141 lb BMI 25.7 BP 124/96 H Blood Pressure Location Lt brachial Position Sitting Respiration 18 Pulse 92 Pulse Source NIBP Intake Visit Reasons: 4 M FU Accompanied by: Self Allergies ciprofloxacin (From Cipro) Allergy (Verified 11/28/23 13:28) Rash Penicillins Allergy (Verified 11/28/23 13:28) Rash Medications ???Medication ???Instructions ???Recorded ???Confirmed ???Type acetaminophen 500 mg tablet 1,000 mg (2 x 500 mg) PO Q6H PRN 04/08/20 11/28/23 Rx Pain Score 1-10 simvastatin 20 mg tablet 20 mg PO QHS 07/17/20 11/28/23 History denosumab 60 mg/mL subcutaneous 60 mg subcut [id number] #1 mL 11/24/22 11/28/23 Rx syringe (Prolia) hydrocortisone 10 mg tablet 20 mg (2 x 10 mg) PO DAILY@0600 11/24/22 11/28/23 Rx #90 tabs warfarin 2.5 mg tablet 2.5 mg PO DAILY@1700 #120 tabs 04/27/23 11/28/23 Rx nitroglycerin 0.4 mg sublingual 0.4 mg sublingual Q5-15M PRN 07/26/23 11/28/23 Rx tablet Cardiac/Chest Pain #25 tabs amlodipine 5 mg tablet 2.5 mg (1/2 x 5 mg) PO QDAY #30 11/28/23 11/28/23 Rx tabs cephalexin 500 mg capsule 500 mg PO TID 11/28/23 11/28/23 History Have you fallen in the past year?: No Nurse's Note: BP Lo/1- 145/101 HR70 11/21-125/100 HR70 11/22-147/101 HR71 11/23-126/87 HR64 11/24-158/110 HR69 11/25-143/83 HR75 11/26-154/106 HR75 11/27-127/85 HR 81 PFSH Medical History (Reviewed 11/28/23 @ 11:15 by Heaven Bolton CERTIFIED PEER SPECIALIST, CERTIFIED PEER SPECIALIST-C) MVP (mitral valve prolapse) Aortic stenosis Hypokalemia Elevated serum creatinine Acute prerenal azotemia History of kidney cancer 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 Hypercalcemia Frequent falls Closed head injury (03/20/20) Hypoglycemia (03/20/20) Acute electrocardiogram changes Atopic dermatitis Osteopenia determined by x-ray History of pulmonary embolism detention (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 Orthostatic hypotension 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, stage 3 Moris disease Essential (primary) hypertension Hyperlipidemia Recurrent deep vein thrombosis (DVT) History of non-ST elevation myocardial infarction (NSTEMI) (04/2009) Pyelonephritis Cystocele with rectocele History of DVT (deep vein thrombosis) Hypotension Surgical History ... Normal [facility] Urine Cultureon 11-22-2023 URC Escherichia coli [place] Count >100,000 Escherichia coli: REACTION Ampicillin Islt EMILIA <=2 Ampicillin+Sulbac Islt EMILIA <=2 S ceFAZolin Islt EMILIA <=4 S Cefepime Islt EMILIA <=0.12 S cefTRIAXone Islt EMILIA <=0.25 S Ciprofloxacin Islt EMILIA <=0.25 S B-Lactamase Extended Susc Islt NEG Gentamicin Islt EMILIA <=1 S Imipenem Islt EMILIA <=0.25 S levoFLOXacin Islt EMILIA <=0.12 S Nitrofurantoin Islt EMILIA <=16 S Pip+Tazo Islt EMILIA <=4 S Tobramycin Islt EMILIA <=1 S TMP SMX Islt EMILIA <=20 S Normal [facility] Comment on above: Performed By: #### L 300.3900, L500.2500 #### [facility] [place], [address] 1,25-dihydroxyvitamin D3 [Ma ss/Vol]on 11-11-2023 VIT D1,25 DIHYDROXY 63.7 pg/mL Normal 19.9-79.3 [facility] Comment on above: Order Comment: Speci men Type: BLOOD SPECIMENOrdering Facility: Alexander Worrell Address: [address] [place], [place] [address] Performed By: #### 1 649-3 ####[facility] [id number] [place] [id number] [place] Calcium.ionized [Moles/Vol]o n 11-11-2023 Calcium.ionized (Bld) [Mass/Vol] 1.30 mmol/L Normal 1.08-1.30 [facility] Comment on above: Order Comment: Speci men Type: BLOOD SPECIMENOrdering Facility: Alexander Worrell Address: [address] [place] [address] Performed By: #### 1 995-0 ####[facility] [id number] [place] [id number] [place] Calcium.ionized adjusted to pH 7.4 (Bld) [Moles/Vol] 1.26 mmol/L Normal 1.08-1.30 [facility] Comment on above: Order Comment: Speci men Type: BLOOD SPECIMENOrdering Facility: Alexander Worrell Address: [address] [place] [address] Performed By: #### 1 995-0 ####[facility] [id number] [place] [id number] [place] Comprehensive metabolic 2000 panelon 11-11-2023 Albumin [Mass/Vol] 3.9 g/dL Normal 3.9-4.9 [facility] Comment on above: Order Comment: Speci men Type: BLOOD SPECIMENOrdering Facility: Alexander Worrell Address: [address] [place] [address] Performed By: #### 2 143-6, 2777-1, 8, 26204-4 ####[facility] LABCLIA [id number] [place] [address] [place] ALP [Catalytic activity/Vol] 90 U/L Normal 34-123 [facility] Comment on above: Order Comment: Speci men Type: BLOOD SPECIMENOrdering Facility: Alexander Worrell Address: [address] [place] [address] Performed By: #### 2 143-6, 277-1, 8, 19171-4 ####[facility] LABCLIA [id number] [place] [address] [place] ALT [Catalytic activity/Vol] 19 U/L Normal 7-38 [facility] Comment on above: Order Comment: Speci men Type: BLOOD SPECIMENOrdering Facility: Alexander Worrell Address: [address] [place] [address] Performed By: #### 2 143-6, 277-1, 2730-09, 11846-2 ####[facility] LABCLIA [id number] [place] [id number] [place] Anion gap [Moles/Vol] 12 mmol/L Normal 8-15 [facility] Comment on above: Order Comment: Speci men Type: BLOOD SPECIMENOrdering Facility: Alexander Worrell Address: [address] [place] [address] Performed By: #### 2 143-6, 277-, 2730-09, 85681-1 ####[facility] LABCLIA [id number] [address] [address] [place] AST [Catalytic activity/Vol] 19 U/L Normal 13-35 [facility] Comment on above: Order Comment: Speci men Type: BLOOD SPECIMENOrdering Facility: Alexander Worrell Address: [address] [place] [address] Performed By: #### 2 143-6, 2776-02, 2730-09, ####[facility] LABCLIA [id number] [facility] [address] [address] [place] Bilirubin [Mass/Vol] 0.7 mg/dL Normal 0.2-1.3 [facility] Comment on above: Order Comment: Speci men Type: BLOOD SPECIMENOrdering Facility: Alexander Worrell Address: [address] [place] [address] Performed By: #### 2 143-6, 2776-02, 2730-09, ####[facility] LABCLIA [id number] [place] [id number] [place] Calcium [Mass/Vol] 9.1 mg/dL Normal 8.5-10.2 [facility] Comment on above: Order Comment: Speci men Type: BLOOD SPECIMENOrdering Facility: Alexander Worrell Address: [address] [place] [address] Performed By: #### 2 143-6, 2776-02, 2730-09, ####[facility] LABCLIA [id number] [facility] [place] [id number] [place] Chloride [Moles/Vol] 110 mmol/L High 98-107 [facility] Comment on above: Order Comment: Speci men Type: BLOOD SPECIMENOrdering Facility: Alexander Worrell Address: [address] [place] [address] Performed By: #### 2 143-6, 2776-02, 2730-09, ####[facility] LABCLIA [id number] [facility] [address] [address] [place] CO2 [Moles/Vol] 22 mmol/L Normal 22-30 [facility] Comment on above: Order Comment: Speci men Type: BLOOD SPECIMENOrdering Facility: Alexander Worrell Address: [address] [place] [address] Performed By: #### 2 143-6, 2777-1, 2730-8, 39241-5 ####[facility] LABCLIA [id number] [address] [address] [place] Creatinine [Mass/Vol] 1.38 mg/dL High 0.58-0.96 [facility] Comment on above: Order Comment: Speci men Type: BLOOD SPECIMENOrdering Facility: Alexander Worrell Address: [address] [place] [address] Performed By: #### 2 143-6, 2777-1, 8, 60517-8 ####[facility] LABIA [id number] [place] [address] [place] Creatinine and Glomerular filtration rate.predicted panel (S/P/Bld) 39 mL/min/1.73m??? Low >=60 [facility] Comment on above: Order Comment: Speci tiki Type: BLOOD SPECIMENOrdering Facility: Alexander Worrell Address: [address] [place] [address] Result Comment: Marisabel mated Glomerular Filtration Rate (eGFR) is calculated using the 2020 CKD-EPI creatinine equation. This equation utilizes serum creatinine, sex, and age as parameters. The creatinine assay has traceable calibration to isotope dilution-mass spectrometry. Refer to KDIGO guidelines for clinical interpretation. In patients with unstable renal function, e.g. those with acute kidney injury, the eGFR may not accurately reflect actual GFR. Performed By: #### 2 143-6, 2777-1, 2730-8, 45404-3 ####[facility] LABCLIA [id number] [address] [address] [place] Glucose [Mass/Vol] 68 mg/dL Low 74-99 [facility] Comment on above: Order Comment: Speci men Type: BLOOD SPECIMENOrdering Facility: Alexander Worrell Address: [address] [place] [address] Result Comment: The [place] Diabetes Association (ADA) provides guidance for cutoff values for fasting glucose and random glucose. The ADA defines fasting as no caloric intake for at least 8 hours. Fasting plasma glucose results between 100 to 125 mg/dL indicate increased risk for diabetes (prediabetes). Fasting plasma glucose results greater than or equal to 126 mg/dL meet the criteria for diagnosis of diabetes. In the absence of unequivocal hyperglycemia, results should be confirmed by repeat testing. In a patient with classic symptoms of hyperglycemia or hyperglycemic crisis, random plasma glucose results greater than or equal to 200 mg/dL meet the criteria for diagnosis of diabetes. Reference: Standards of Medical Care in Diabetes 2016, [place] [employer]. Diabetes Care. 2016.39(Suppl 1). Performed By: #### 2 143-6, 2777-1, 273-8, 53859-9 ####[facility] LABCLIA [id number] [address] [address] [place] Potassium [Moles/Vol] 3.7 mmol/L Normal 3.7-5.1 [facility] Comment on above: Order Comment: Jody fairbanks Type: BLOOD SPECIMENOrdering Facility: Alexander Worrell Address: [address] [place], [place] [address] Performed By: #### 2 143-6, 2777-1, 2738, 37213-4 ####[facility] LABIA [id number] [address] [address] [place] Protein [Mass/Vol] 5.9 g/dL Low 6.3-8.0 [facility] Comment on above: Order Comment: Jody fairbanks Type: BLOOD SPECIMENOrdering Facility: Alexander Worrell Address: [address] [place] [address] Performed By: #### 2 143-6, 2777-1, 273-8, 25510-9 ####[facility] LABCLIA [id number] [address] [address] [place] Sodium [Moles/Vol] 144 mmol/L Normal 136-144 [facility] Comment on above: Order Comment: Speci men Type: BLOOD SPECIMENOrdering Facility: Alexander Worrell Address: [address] [place] [address] Performed By: #### 2 143-6, 2777-1, 8, 02042-7 ####[facility] LABIA [id number] [address] [address] [place] Urea nitrogen [Mass/Vol] 36 mg/dL High 7- [facility] Comment on above: Order Comment: Speci men Type: BLOOD SPECIMENOrdering Facility: Alexander Worrell Address: [address] [place], [place] [id number] Performed By: #### 2 143-6, 277-, 2730-09, ####[facility] [id number] [place] [id number] [place] Cortis Leonardol-Phan 11-11-19 Cortisol [Mass/Vol] 2.3 ug/dL Low 4.8-19.5 [facility] Comment on above: Order Comment: Speci men Type: BLOOD SPECIMENOrdering Facility: Alexander Worrell Address: [address] [place] [address] Result Comment: Prov ided reference range is from 6-10 AM sample collection time. Cortisol Reference Range: 6-10 AM = 4.8-19.5 ug/dL, 4-8 PM = 2.5-11.9 ug/dL Performed By: #### 2 143-6, 2777-1, 2730-8, 46095-8 ####[facility] LABIA [id number] [address] [address] [place] PTH-Intact SerPl-mCncon - Parathyrin.intact [Mass/Vol] 113 pg/mL High 15-65 [facility] Comment on above: Order Comment: Speci men Type: BLOOD SPECIMENOrdering Facility: Alexander Worrell Address: [address] [place] [address] Performed By: #### 2 143-6, 2777-1, 2731-8, 50864-2 ####[facility] LABIA [id number] [place] [id number] [place] Phosphate SerPl-mCncon 11-10 Phosphate [Mass/Vol] 2.1 mg/dL Low 2.7-4.8 [facility] Comment on above: Order Comment: Speci men Type: BLOOD SPECIMENOrdering Facility: Alexander Worrell Address: [address] [place] [address] Performed By: #### 2 143-6, 2777-1, 2731-8, 42480-7 ####[facility] LABIA [id number] [place] [address] [place] Protime w/INR Fingerstickon 11-08-2023 INR Coag (PPP) [Relative time] 2.7 {INR} Normal [facility] Comment on above: Result Comment: Crit ical Value > 4.0 Performed By: #### L 300.3900, L500.2500 #### [facility] Laboratory [address] [place], [place], [id number] Protime Coagsen 27.1 SEC High 11.7-14.9 [facility] Comment on above: Performed By: #### L 300.3900, L500.2500 #### [facility] [address] [place], [address] Prothrombin Time w/INRon INR Coag (PPP) [Relative time] 2.1 {INR} Normal [facility] Comment on above: Order Comment: DR. Hermes BOSS ORDERED RENALComments: THIS IS A STANDING ORDER - FINGERSTICK Performed By: #### L 300.3900, L500.2500 #### [facility] [address] [place], [address] PT Coag (PPP) [Time] 23.2 s High 11.7-14.9 [facility] Comment on above: Order Comment: DR. Hermes BOSS ORDERED RENALComments: THIS IS A STANDING ORDER - FINGERSTICK Performed By: #### L 300.3900, L500.2500 #### [facility] [address] [place], [address] Renal Profileon 10-09-2023 Albumin [Mass/Vol] 3.4 g/dL Normal 3.2-5.0 [facility] Comment on above: Order Comment: DR. Hermes BOSS ORDERED RENAL Performed By: #### Hermes 300.3900, L500.2500 #### [facility] [address] [place], [address] BUN/CRE 29.9 RATIO High 10-20 [facility] Comment on above: Order Comment: DR. Hermes BOSS ORDERED RENAL Performed By: #### Hermes 300.3900, L500.2500 #### [facility] [address] [place], [address] CA,Total 9.4 mg/dL Normal 8.5-10.1 [facility] Comment on above: Order Comment: DR. Hermes BOSS ORDERED RENAL Performed By: #### Hermes 300.3900, L500.2500 #### [facility] [address] [place], [address] Chloride [Moles/Vol] 111 mmol/L High 98-107 [facility] Comment on above: Order Comment: DR. Hermes BOSS ORDERED RENAL Performed By: #### Hermes 300.3900, L500.2500 #### [facility] [address] [place], [address] CO2 [Moles/Vol] 23.0 mmol/L Normal 21.0-32.0 [facility] Comment on above: Order Comment: DR. Hermes BOSS ORDERED RENAL Performed By: #### L 300.3900, L500.2500 #### [facility] [address] [place], [address] Creatinine [Mass/Vol] 1.47 mg/dL High 0.55-1.02 [facility] Comment on above: Order Comment: DR. Hermes BOSS ORDERED RENAL Result Comment: The validity of the calculated GFR GFRAA in patients over 70 years has not been determined. Clinical correlation is essential. Performed By: #### L 300.3900, L500.2500 #### [facility] [address] [place], [address] EST GFR - AA 44 mL/min Low >60 [facility] Comment on above: Order Comment: DR. Hermes BOSS ORDERED RENAL Result Comment: Afri can Macedonian GFR Calc Performed By: #### L 300.3900, L500.2500 #### [facility] [address] [place], [address] GFR/1.73 sq M.predicted among non-blacks MDRD (S/P/Bld) [Vol rate/Area] 36 mL/min/{1.73_m2} Low >60 [facility] Comment on above: Order Comment: DR. Hermes BOSS ORDERED RENAL Result Comment: Non- GFR Calc Performed By: #### L 300.3900, L500.2500 #### [facility] [address] [place], [address] Glucose [Mass/Vol] 94 mg/dL Normal 74-106 [facility] Comment on above: Order Comment: DR. Hermes BOSS ORDERED RENAL Performed By: #### L 300.3900, L500.2500 #### [facility] [address] [place], [address] Phosphate [Mass/Vol] 3.2 mg/dL Normal 2.5-4.9 [facility] Comment on above: Order Comment: DR. Hermes BOSS ORDERED RENAL Performed By: #### Hermes 300.3900, L500.2500 #### [facility] [address] [place], [address] Potassium [Moles/Vol] 4.3 mmol/L Normal 3.5-5.1 [facility] Comment on above: Order Comment: DR. Hermes BOSS ORDERED RENAL Result Comment: Slig ht Hemolysis, Result may be falsely increased. Performed By: #### Hermes 300.3900, L500.2500 #### [facility] [address] [place], [address] Sodium [Moles/Vol] 140 mmol/L Normal 136-145 [facility] Comment on above: Order Comment: DR. Hermes BOSS ORDERED RENAL Performed By: #### Hermes 300.3900, L500.2500 #### [facility] [address] [place], [address] Urea nitrogen [Mass/Vol] 44 mg/dL High 7-18 [facility] Comment on above: Order Comment: DR. Hermes BOSS ORDERED RENAL Performed By: #### Hermes 300.3900, L500.2500 #### [facility] [address] [place], [address] CNTHERAPYon 09-19-2023 CNTHERAPY OT/PT/Speech Visit (PTWS) -------- LINDA PERALTA ([id number]) 1945 F Date Time Provider Department 09/19/23 11:30 AM KOLE EL PTWS Date Time Provider Department [place] 09/19/2023 11:30 AM [id number], COLIN PTWS [place] Reason for Visit: PT Discharge [752] Primary Visit Diagnosis:Physical deconditioning [R53.81] Other Visit Diagnoses:Gait abnormality [R26.9] Weakness [R53.1] Allergies As of Date: 09/19/2023 Noted Allergy Reaction CIPRO (CIPROFLOXACIN) 07/22/2009 Comments: rash with 500mg dose PENICILLINS 06/17/2002 Comments: rash Date Reviewed: 08/11/2023 Reviewed by: Tiana Mills LPN - Fully Assessed Prescriptions as of 09/19/2023 - hydrocortisone (CORTEF) 10 mg tablet Take 3 tablets by mouth once daily. As directed per endocrinology. - amLODIPine (NORVASC) 5 mg tablet Take 10 mg by mouth once daily. - pantoprazole DR (PROTONIX) 40 mg tablet Take 1 tablet by mouth daily at 6 am. - simvastatin (ZOCOR) 20 mg tablet Take 1 tablet by mouth daily at bedtime. - nitroglycerin sublingual (NITROQUICK) 0.4 mg SL tablet Dissolve 1 tablet under the tongue every 5 minutes as needed. - denosumab (PROLIA) 60 mg/mL Inject 60 mg subcutaneously once every [address] Torsten Vann, endocrinology. Due mid-June - warfarin (COUMADIN) 2.5 mg tablet Take 2.5 mg by mouth. 2.5 mg daily except 5 mg on Mondays - acetaminophen (TYLENOL) 325 mg tablet Take 650 mg by mouth every 6 hours as needed. -------- Microphone Boom Operator: Addendum Therapy (PT/OT/Speech/Resp) ID: [id number] 09/19/2023 12:06 PM Author: KOLE EL Signed by KOLE EL PT on 09/19/2023 at 12:06 PM * * * This document replaces document [id number] * * * Document text: Program_ID:[id number] Access Code: [email or web address] URL: [email or web address] Date: 09-19-2023 Prepared By: Kole El Program Notes Exercises - Mini Squat with Counter Support - 2 x daily - 4-5 x weekly - 2 sets - 10 reps - Standing Hip Abduction with Counter Support - 2 x daily - 4-5 x weekly - 2 sets - 10 reps - Seated Long Arc Quad with Ankle Weight - 2 x daily - 4-5 x weekly - 2 sets - 10 reps - Standing March with Counter Support - 2 x daily - 4-5 x weekly - 2 sets - 10 reps - Heel Toe Raises with Counter Support - 2 x daily - 4-5 x weekly - 2 sets - 10-15 reps - Goblet Squat with Kettlebell - 2 x daily - 4-5 x weekly - 2 sets - 8-10 reps - Side Stepping with Resistance at Ankles and Counter Support - 2 x daily - 4-5 x weekly - 3-5 sets - reps - Step Up - 1-2 x daily - 4-5 x weekly - 2 sets - 8-12 reps - Active Straight Leg Raise with Quad Set - 2 x daily - 4-5 x weekly - 2 sets - 6-10 reps - Supine March - 2 x daily - 4-5 x weekly - 2 sets - 8-10 reps Normal [facility] THERAPY NTon 09-19-2023 THERAPY NT HNO ID: [id number] Author: KOLE EL, PT Service: ? Author Type: Physical Therapist Type: Therapy (PT/OT/Speech/Resp) Filed: 09/19/2023 12:06 Note Text: Program_ID:[id number] Access Code: [email or web address] URL: [email or web address] Date: 09-19-2023 Prepared By: Kloe El Program Notes Exercises - Mini Squat with Counter Support - 2 x daily - 4-5 x weekly - 2 sets - 10 reps - Standing Hip Abduction with Counter Support - 2 x daily - 4-5 x weekly - 2 sets - 10 reps - Seated Long Arc Quad with Ankle Weight - 2 x daily - 4-5 x weekly - 2 sets - 10 reps - Standing March with Counter Support - 2 x daily - 4-5 x weekly - 2 sets - 10 reps - Heel Toe Raises with Counter Support - 2 x daily - 4-5 x weekly - 2 sets - 10-15 reps - Goblet Squat with Kettlebell - 2 x daily - 4-5 x weekly - 2 sets - 8-10 reps - Side Stepping with Resistance at Ankles and Counter Support - 2 x daily - 4-5 x weekly - 3-5 sets - reps - Step Up - 1-2 x daily - 4-5 x weekly - 2 sets - 8-12 reps - Active Straight Leg Raise with Quad Set - 2 x daily - 4-5 x weekly - 2 sets - 6-10 reps - Supine April - 2 x daily - 4-5 x weekly - 2 sets - 8-10 reps Normal [facility] CNTHERAPYon 09-12-2023 CNTHERAPY OT/PT/Speech Visit (PTWS) -------- LINDA PERALTA ([id number]) 1945 F Date Time Provider Department 09/12/23 11:30 AM KOLE EL PTWS Date Time Provider Department Center 09/12/2023 11:30 AM [id number], COLIN PTWS [place] Reason for Visit: Physical Therapy [503] Primary Visit Diagnosis:Physical deconditioning [R53.81] Other Visit Diagnoses:Gait abnormality [R26.9] Weakness [R53.1] Allergies As of Date: 09/12/2023 Noted Allergy Reaction CIPRO (CIPROFLOXACIN) 07/22/2009 Comments: rash with 500mg dose PENICILLINS 06/17/2002 Comments: rash Date Reviewed: 08/11/2023 Reviewed by: Tiana Mills LPN - Fully Assessed Prescriptions as of 09/12/2023 - hydrocortisone (CORTEF) 10 mg tablet Take 3 tablets by mouth once daily. As directed per endocrinology. - amLODIPine (NORVASC) 5 mg tablet Take 10 mg by mouth once daily. - pantoprazole DR (PROTONIX) 40 mg tablet Take 1 tablet by mouth daily at 6 am. - simvastatin (ZOCOR) 20 mg tablet Take 1 tablet by mouth daily at bedtime. - nitroglycerin sublingual (NITROQUICK) 0.4 mg SL tablet Dissolve 1 tablet under the tongue every 5 minutes as needed. - denosumab (PROLIA) 60 mg/mL Inject 60 mg subcutaneously once every [address] Torsten Vann, endocrinology. Due mid-June - warfarin (COUMADIN) 2.5 mg tablet Take 2.5 mg by mouth. 2.5 mg daily except 5 mg on Mondays - acetaminophen (TYLENOL) 325 mg tablet Take 650 mg by mouth every 6 hours as needed. -------- Normal [facility] CNTHERAPYon 09-08-2023 CNTHERAPY OT/PT/Speech Visit (PTWS) -------- LINDA PERALTA ([id number]) 1945 F Date Time Provider Department 09/08/23 2:30 PM KOLE EL PTWS Date Time Provider Department Center 09/08/2023 2:30 PM [id number], COLIN PTWS [place] Reason for Visit: Physical Therapy [503] Primary Visit Diagnosis:Physical deconditioning [R53.81] Other Visit Diagnoses:Gait abnormality [R26.9] Weakness [R53.1] Allergies As of Date: 09/08/2023 Noted Allergy Reaction CIPRO (CIPROFLOXACIN) 07/22/2009 Comments: rash with 500mg dose PENICILLINS 06/17/2002 Comments: rash Date Reviewed: 08/11/2023 Reviewed by: Tiana Mills LPN - Fully Assessed Prescriptions as of 09/08/2023 - hydrocortisone (CORTEF) 10 mg tablet Take 3 tablets by mouth once daily. As directed per endocrinology. - amLODIPine (NORVASC) 5 mg tablet Take 10 mg by mouth once daily. - pantoprazole DR (PROTONIX) 40 mg tablet Take 1 tablet by mouth daily at 6 am. - simvastatin (ZOCOR) 20 mg tablet Take 1 tablet by mouth daily at bedtime. - nitroglycerin sublingual (NITROQUICK) 0.4 mg SL tablet Dissolve 1 tablet under the tongue every 5 minutes as needed. - denosumab (PROLIA) 60 mg/mL Inject 60 mg subcutaneously once every [address] Torsten Vann, endocrinology. Due mid-June - warfarin (COUMADIN) 2.5 mg tablet Take 2.5 mg by mouth. 2.5 mg daily except 5 mg on Mondays - acetaminophen (TYLENOL) 325 mg tablet Take 650 mg by mouth every 6 hours as needed. -------- Normal [facility] Protime w/INR Fingerstickon 09-07-2023 INR Coag (PPP) [Relative time] 2.1 {INR} Normal [facility] Comment on above: Result Comment: Crit ical Value > 4.0 Performed By: #### L 9200.0000 #### [facility] [address] [place], [place], [id number] Protime Coagsen 22.0 SEC High 11.7-14.9 [facility] Comment on above: Performed By: #### L 9200.0000 #### [facility] [place], [address] 25(OH)D3 [facility] 2023 25-hydroxyvitamin D3 [Mass/Vol] 34.1 ng/mL Normal 31.0-80.0 [facility] Comment on above: Order Comment: Speci men Type: BLOOD SPECIMENOrdering Facility: External Submitter Address: , , Performed By: #### 1 989-3 ####[facility] [id number] [place] [address] [place] Calcium.ionized [Moles/Vol]o n 08-31-2023 Calcium.ionized (Bld) [Mass/Vol] 1.30 mmol/L Normal 1.08-1.30 [facility] Comment on above: Order Comment: Speci men Type: BLOOD SPECIMENOrdering Facility: External Submitter Address: , , Performed By: #### 1 995-0 ####[facility] [id number] [place] [address] [place] Calcium.ionized adjusted to pH 7.4 (Bld) [Moles/Vol] 1.27 mmol/L Normal 1.08-1.30 [facility] Comment on above: Order Comment: Speci men Type: BLOOD SPECIMENOrdering Facility: External Submitter Address: , , Performed By: #### 1 995-0 ####[facility] [id number] [place] [id number] [place] Collagen crosslinked C-telop eptide [Mass/Vol]on 08-31-2023 C TELOPEPTIDE, BETA CROSS LINKED 132 pg/mL Low 152-858 [facility] Comment on above: Order Comment: Speci men Type: BLOOD SPECIMENOrdering Facility: External Submitter Address: , , Performed By: #### 4 5101-0 ####[facility] LABCLIA [id number] [address] [address] [place] Comprehensive metabolic 2000 panelon 08-31-2023 Albumin [Mass/Vol] 3.8 g/dL Low 3.9-4.9 [facility] Comment on above: Order Comment: Speci men Type: BLOOD SPECIMENOrdering Facility: External Submitter Address: , , Performed By: #### 2 731-8, 97903-1, 2776-02, 2142-07 ####[facility] LABCLIA [id number] [place] [address] [place] ALP [Catalytic activity/Vol] 87 U/L Normal 34-123 [facility] Comment on above: Order Comment: Speci men Type: BLOOD SPECIMENOrdering Facility: External Submitter Address: , , Performed By: #### 2 731-8, 29192-9, 2776-02, 2142-07 ####[facility] LABCLIA [id number] [address] [address] [place] ALT [Catalytic activity/Vol] 17 U/L Normal 7-38 [facility] Comment on above: Order Comment: Speci men Type: BLOOD SPECIMENOrdering Facility: External Submitter Address: , , Performed By: #### 2 731-8, 92708-5, 2776-02, 2142-07 ####[facility] LABCLIA [id number] [address] [address] [place] Anion gap [Moles/Vol] 12 mmol/L Normal 8-15 [facility] Comment on above: Order Comment: Speci men Type: BLOOD SPECIMENOrdering Facility: External Submitter Address: , , Performed By: #### 2 731-8, 90203-2, 2776-1, 2142-07 ####[facility] LABCLIA [id number] [address] [address] [place] AST [Catalytic activity/Vol] 19 U/L Normal 13-35 [facility] Comment on above: Order Comment: Speci men Type: BLOOD SPECIMENOrdering Facility: External Submitter Address: , , Performed By: #### 2 731-8, 59355-8, 2776-02, 2142-07 ####[facility] LABCLIA [id number] [place] [address] [place] Bilirubin [Mass/Vol] 0.6 mg/dL Normal 0.2-1.3 [facility] Comment on above: Order Comment: Speci men Type: BLOOD SPECIMENOrdering Facility: External Submitter Address: , , Performed By: #### 2 731-8, 49792-8, 2776-02, 2142-07 ####[facility] LABCLIA [id number] [place] [address] [place] Calcium [Mass/Vol] 9.4 mg/dL Normal 8.5-10.2 [facility] Comment on above: Order Comment: Speci men Type: BLOOD SPECIMENOrdering Facility: External Submitter Address: , , Performed By: #### 2 731-8, 16692-3, 2776-02, 2142-07 ####[facility] LABCLIA [id number] [place] [address] [place] Chloride [Moles/Vol] 108 mmol/L High 98-107 [facility] Comment on above: Order Comment: Speci men Type: BLOOD SPECIMENOrdering Facility: External Submitter Address: , , Performed By: #### 2 731-8, 66740-6, 2776-02, 2142-07 ####[facility] LABCLIA [id number] [place] [address] [place] CO2 [Moles/Vol] 23 mmol/L Normal 22-30 [facility] Comment on above: Order Comment: Speci men Type: BLOOD SPECIMENOrdering Facility: External Submitter Address: , , Performed By: #### 2 731-8, 07227-0, 2776-1, 6 ####[facility] LABIA [id number] [place] [id number] [place] Creatinine [Mass/Vol] 1.55 mg/dL High 0.58-0.96 [facility] Comment on above: Order Comment: Speci men Type: BLOOD SPECIMENOrdering Facility: External Submitter Address: , , Performed By: #### 2 731-8, 31373-5, 2776-1, 2142-07 ####[facility] LABIA [id number] [place] [address] [place] Creatinine and Glomerular filtration rate.predicted panel (S/P/Bld) 34 mL/min/1.73m??? Low >=60 [facility] Comment on above: Order Comment: Jody fairbanks Type: BLOOD SPECIMENOrdering Facility: External Submitter Address: , , Result Comment: Marisabel mated Glomerular Filtration Rate (eGFR) is calculated using the 2020 CKD-EPI creatinine equation. This equation utilizes serum creatinine, sex, and age as parameters. The creatinine assay has traceable calibration to isotope dilution-mass spectrometry. Refer to KDIGO guidelines for clinical interpretation. In patients with unstable renal function, e.g. those with acute kidney injury, the eGFR may not accurately reflect actual GFR. Performed By: #### 2 731-8, 04650-4, 2776-, 2142-07 ####[facility] LABIA [id number] [address] [address] [place] Glucose [Mass/Vol] 70 mg/dL Low 74-99 [facility] Comment on above: Order Comment: Jody fairbanks Type: BLOOD SPECIMENOrdering Facility: External Submitter Address: , , Result Comment: The [place] Diabetes Association (ADA) provides guidance for cutoff values for fasting glucose and random glucose. The ADA defines fasting as no caloric intake for at least 8 hours. Fasting plasma glucose results between 100 to 125 mg/dL indicate increased risk for diabetes (prediabetes). Fasting plasma glucose results greater than or equal to 126 mg/dL meet the criteria for diagnosis of diabetes. In the absence of unequivocal hyperglycemia, results should be confirmed by repeat testing. In a patient with classic symptoms of hyperglycemia or hyperglycemic crisis, random plasma glucose results greater than or equal to 200 mg/dL meet the criteria for diagnosis of diabetes. Reference: Standards of Medical Care in Diabetes 2016, [place] [employer] Association. Diabetes Care. 2016.39(Suppl 1). Performed By: #### 2 731-8, 64467-4, 2776-02, 2142-07 ####[facility] LABCLIA [id number] [address] [address] [place] Potassium [Moles/Vol] 4.0 mmol/L Normal 3.7-5.1 [facility] Comment on above: Order Comment: Jody fairbanks Type: BLOOD SPECIMENOrdering Facility: External Submitter Address: , , Performed By: #### 2 731-8, 55072-3, 2776-02, 2142-07 ####[facility] LABIA [id number] [address] [address] [place] Protein [Mass/Vol] 6.0 g/dL Low 6.3-8.0 [facility] Comment on above: Order Comment: Jody fairbanks Type: BLOOD SPECIMENOrdering Facility: External Submitter Address: , , Performed By: #### 2 731-8, 45120-8, 2776-02, 2142-07 ####[facility] LABIA [id number] [address] [address] [place] Sodium [Moles/Vol] 143 mmol/L Normal 136-144 [facility] Comment on above: Order Comment: Jody fairbanks Type: BLOOD SPECIMENOrdering Facility: External Submitter Address: , , Performed By: #### 2 731-8, 81021-0, 2776-02, 2142-07 ####[facility] LABCLIA [id number] [address] [address] [place] Urea nitrogen [Mass/Vol] 38 mg/dL High 7-21 [facility] Comment on above: Order Comment: Speci men Type: BLOOD SPECIMENOrdering Facility: External Submitter Address: , , Performed By: #### 2 731-8, 62767-3, 2776-02, 2142-07 ####[facility] LABCLIA [id number] [place] [address] [place] Cortis SerPl-mCncon 08-31-19 24 Cortisol [Mass/Vol] 2.5 ug/dL Low 4.8-19.5 [facility] Comment on above: Order Comment: Speci men Type: BLOOD SPECIMENOrdering Facility: External Submitter Address: , , Result Comment: Prov ided reference range is from 6-10 AM sample collection time. Cortisol Reference Range: 6-10 AM = 4.8-19.5 ug/dL, 4-8 PM = 2.5-11.9 ug/dL Performed By: #### 2 731-8, 23618-4, 2776-02, 2142-07 ####[facility] LABCLIA [id number] [place] [address] [place] PTH-Intact SerPl-mCncon - Parathyrin.intact [Mass/Vol] 66 pg/mL High 15-65 [facility] [facility] Comment on above: Order Comment: Speci men Type: BLOOD SPECIMENOrdering Facility: External Submitter Address: , , Performed By: #### 2 731-8, 96924-9, 2776-02, 2142-07 ####[facility] LABCLIA [id number] [place] [address] [place] Phosphate SerPl-mCncon 08-30 Phosphate [Mass/Vol] 2.4 mg/dL Low 2.7-4.8 [facility] Comment on above: Order Comment: Speci men Type: BLOOD SPECIMENOrdering Facility: External Submitter Address: , , Performed By: #### 2 731-8, 86849-6, 2776-02, 2142-07 ####[facility] LABDANUTA [id number] [address] [place] CNTHERAPYon 08-30-2023 CNTHERAPY OT/PT/Speech Visit (PTWS) -------- LINDA PERALTA ([id number]) 1945 F Date Time Provider Department 08/30/23 3:00 PM KOLE EL PTWS Date Time Provider Department Center 08/30/2023 3:00 PM [id number], COLIN PTWS Niles Pearl Reason for Visit: Physical Therapy [503] Primary Visit Diagnosis:Physical deconditioning [R53.81] Other Visit Diagnoses:Gait abnormality [R26.9] Weakness [R53.1] Allergies As of Date: 08/30/2023 Noted Allergy Reaction CIPRO (CIPROFLOXACIN) 07/22/2009 Comments: rash with 500mg dose PENICILLINS 06/17/2002 Comments: rash Date Reviewed: 08/11/2023 Reviewed by: Tiana Mills LPN - Fully Assessed Prescriptions as of 08/30/2023 - hydrocortisone (CORTEF) 10 mg tablet Take 3 tablets by mouth once daily. As directed per endocrinology. - amLODIPine (NORVASC) 5 mg tablet Take 10 mg by mouth once daily. - pantoprazole DR (PROTONIX) 40 mg tablet Take 1 tablet by mouth daily at 6 am. - simvastatin (ZOCOR) 20 mg tablet Take 1 tablet by mouth daily at bedtime. - nitroglycerin sublingual (NITROQUICK) 0.4 mg SL tablet Dissolve 1 tablet under the tongue every 5 minutes as needed. - denosumab (PROLIA) 60 mg/mL Inject 60 mg subcutaneously once every [address] Torsten Vann, endocrinology. Due mid-June - warfarin (COUMADIN) 2.5 mg tablet Take 2.5 mg by mouth. 2.5 mg daily except 5 mg on Mondays - acetaminophen (TYLENOL) 325 mg tablet Take 650 mg by mouth every 6 hours as needed. -------- [facility] CNTHERAPYon 08-21-2023 CNTHERAPY OT/PT/Speech Visit (PTWS) -------- LINDA PERALTA ([id number]) 1945 F Date Time Provider Department 08/21/23 11:45 AM GISEL BOLAÑOS Date Time Provider Department Center 08/21/2023 11:45 AM [id number], MARIAH PTFRANCES Pearl Reason for Visit: Physical Therapy [503] Primary Visit Diagnosis:Physical deconditioning [R53.81] Other Visit Diagnoses:Gait abnormality [R26.9] Weakness [R53.1] Allergies As of Date: 08/21/2023 Noted Allergy Reaction CIPRO (CIPROFLOXACIN) 07/22/2009 Comments: rash with 500mg dose PENICILLINS 06/17/2002 Comments: rash Date Reviewed: 08/11/2023 Reviewed by: Tiana Mills LPN - Fully Assessed Prescriptions as of 08/21/2023 - hydrocortisone (CORTEF) 10 mg tablet Take 3 tablets by mouth once daily. As directed per endocrinology. - amLODIPine (NORVASC) 5 mg tablet Take 10 mg by mouth once daily. - pantoprazole DR (PROTONIX) 40 mg tablet Take 1 tablet by mouth daily at 6 am. - simvastatin (ZOCOR) 20 mg tablet Take 1 tablet by mouth daily at bedtime. - nitroglycerin sublingual (NITROQUICK) 0.4 mg SL tablet Dissolve 1 tablet under the tongue every 5 minutes as needed. - denosumab (PROLIA) 60 mg/mL Inject 60 mg subcutaneously once every [address] Torsetn Vann, endocrinology. Due mid-June - warfarin (COUMADIN) 2.5 mg tablet Take 2.5 mg by mouth. 2.5 mg daily except 5 mg on Mondays - acetaminophen (TYLENOL) 325 mg tablet Take 650 mg by mouth every 6 hours as needed. -------- [facility] CNOVon 08-11-2023 CNOV Office Visit (INTMWS ) -------- LINDA PERALTA ([id number]) 1945 F Date Time Provider Department 08/11/23 10:40 AM AMOS FLOYD INTMWS During your visit today, we recorded the following information about you: Amos Floyd MD 08/11/2023 11:20 AM Signed This note was created using [employer]. Subjective Linda Peralta is a 78 year old female here with her daughter. Her blood pressure was improving, and she was able to complete physical therapy this week. 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 They had been titrating her dose upward. She was scheduled to see her shoe reconditioner, Dr. Gregory at . He did not receive the send out lab I ordered, so copy of the send out was printed and given to patient. Review of Systems Constitutional: Negative for fatigue. Respiratory: Negative for shortness of breath. Cardiovascular: Negative for chest pain, palpitations and leg swelling. Neurological: Positive for weakness. Negative for dizziness and headaches. 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 simvastatin (ZOCOR) 20 mg tablet Take 1 tablet by mouth daily at bedtime. nitroglycerin sublingual (NITROQUICK) 0.4 mg SL tablet Dissolve 1 tablet under the tongue every 5 minutes as needed. denosumab (PROLIA) 60 mg/mL Inject 60 mg subcutaneously once every [address] Torsten Vann, endocrinology. Due mid-June warfarin (COUMADIN) 2.5 mg tablet Take 2.5 mg by mouth. 2.5 mg daily except 5 mg on Mondays acetaminophen (TYLENOL) 325 mg tablet Take 650 mg by mouth every 6 hours as needed. hydrocortisone (CORTEF) 10 mg tablet Take 3 tablets by mouth once daily. As directed per endocrinology. pantoprazole DR (PROTONIX) 40 mg tablet Take 1 tablet by mouth daily at 6 am. No current facility-administered medications for this visit. Objective There were no vitals taken for this visit. Physical Exam Constitutional: General: She is not in acute distress. Appearance: She is not ill-appearing. Cardiovascular: Rate and Rhythm: Normal rate and regular rhythm. Heart sounds: S1 normal and S2 normal. Murmur heard. Systolic murmur is present with a grade of 2/6. Comments: Aortic murmur. Pulmonary: Effort: No respiratory distress. Breath sounds: No wheezing or rales. Musculoskeletal: Right lower leg: No edema. Left lower leg: No edema. Neurological: General: No focal deficit present. Mental Status: She is alert. Test results pertinent to today's visit were reviewed and discussed with the patient. Assessment and Plan 1. Primary hypertension - ICD9: 401.9, ICD10: I10 (primary diagnosis) - Improving control - Continue current medications 2. Hypercalcemia - ICD9: 275.42, ICD10: E83.52 - Improved. - HYDROCORTISONE 10 MG TABLET 3. Adrenal hypofunction (HCC) - ICD9: 255.41, ICD10: E27.40 - Improved. - HYDROCORTISONE 10 MG TABLET 4. Nonrheumatic aortic valve stenosis - ICD9: 424.1, ICD10: I35.0 - Asymptomatic. Monitored per [facility]. Amos Floyd MD Allergies As of Date: 08/11/2023 Noted Allergy Reaction CIPRO (CIPROFLOXACIN) 07/22/2009 Comments: rash with 500mg dose PENICILLINS 06/17/2002 Comments: rash Date Reviewed: 08/11/2023 Reviewed by: Tiana Mills LPN - Fully Assessed Reason for Visit: Follow Up [171] Cmt: 6 week follow up Primary Visit Diagnosis:Primary hypertension [I10] Other Visit Diagnoses:Hypercalcemia [E83.52] Adrenal hypofunction (HCC) [E27.40] Nonrheumatic aortic valve stenosis [I35.0] Order(s):hydrocortisone (CORTEF) 10 mg tabletTake 3 tablets by mouth once daily. As directed per endocrinology.Disp: Rfl: 0 Prescriptions as of 08/11/2023 - hydrocortisone (CORTEF) 10 mg tablet Take 3 tablets by mouth once daily. As directed per endocrinology. - amLODIPine (NORVASC) 5 mg tablet Take 10 mg by mo (more content not included)... [facility] [id number] 08-09-2023 [id number] HNO ID: [id number] Author: KOLE EL PT Service: ? Author Type: Physical Therapist Type: [id number] Filed: 08/09/2023 10:05 Note Text: [facility] Physical Therapy Plan of Care Certification Patient Name: Linda Peralta : 1945 [facility] #: [id number] Date: 08/09/2023 To: Amos Floyd MD From Therapist: Kole El PT RE: Patient Certification/ Recertification Your review, approval and electronic signature are required in order to comply with Payor: [employer] / Plan: [employer] MEDICARE HMO / Product Type: HMO / regulations. The identified Physical Therapy PLAN OF CARE for the patient is as follows: R53.81 Physical deconditioning (primary encounter diagnosis) R26.9 Gait abnormality R53.1 Weakness PLAN OF CARE UPDATE: Assessment: Linda Peralta demonstrates improvements in walking; walking in the community; physical activities; recreational activities; stair negotiation and rising from a chair. She has progressed toward goals. Patient continues to present with impairments in ADL's, independence in exercise, strength, and symptom management that interfere with (Lifting Legs into Car, Getting up from the ground/kneeling; intermittently needs to use UEs to assist rise from chair; has not been able to return to mowing yet.) Current prognosis is Good due to: current objective clinical presentation, positive past response to therapy, within-session changes, good support system/ coping skills. She will benefit from continued skilled therapy services to meet the updated goals for this plan of care as noted below. Updated 05/31/23 AND 07/05/23, 08/09/23. Goals for Episode of Care: created on 03/28/23 through 08/09/23 [place] in home exercise program.-- Met continue to monitor Patient will decrease pain rating by 2 points to meet minimal clinical important difference for numeric pain rating scale.-- Met, continue to monitor Patient will demonstrate increase in BLE strength to 4+ to 5/5 (abdoulaye. Hip flexors AND hip ABD) during manual muscle testing in order to improve function for basic self-care tasks, home management tasks, prior functional tasks, and light functional tasks.-- (progressing towards). Improve gait mechanics for ability tp return to leisure / recreation exercise.-- (progressing towards). Improve stair ascending negotiation without report of symptoms/pain in 6 weeks.(Extended for more time)-- (progressing towards). NEW GOALS (Added 05/31/23). Improve score on Timed Up and Go Test to <10.5 seconds to reflect decreased fall risk. (Currently MET) Improve score on 30 Second Chair Stand to >11 repetitions to reflect decreased fall risk. (Currently MET) Improve performance on 4 Stage Balance Test to >7 for tandem and at least >3 seconds for B SLS to reflect decreased fall risk. (Currently MET for tandem, not for SLS) Patient Goals: Reduce pain; improve movement; get back to PLOF. Planned Interventions, Frequency, and Duration: 1x/week, 5 weeks Total Number of Visits Planned: 5 Patient to be seen for Therapeutic exercise (56586), Neuromuscular re-education (54023), Manual therapy (36705), Self-fdc management (64382), Therapeutic activities (36066), Gait Training (25797), Patient/Family/Caregiver Education, General Conditioning PLAN FOR NEXT VISIT: Hip Flexor and Quadricep Strengthening; functional activities. For further details regarding this patient refer to the Physical Therapy electronically documented visit dated 08/09/2023. Provider Attestation I have reviewed the treatment plan for Linda Peralta, [facility]# [id number] for the period of 08/09/23 -- 09/20/23, established on 08/09/2023. Signature certifies the need for therapy services. [facility] CNTHERAPYon 08-09-2023 CNTHERAPY OT/PT/Speech Visit (PTWS) -------- LINDA PERALTA ([id number]) 1945 F Date Time Provider Department 08/09/23 9:15 AM KOLE EL PTWS Date Time Provider Department Center 08/09/2023 9:15 AM [id number], COLIN PTWS Niles Pearl Reason for Visit: PT Progress Note [1596] Primary Visit Diagnosis:Physical deconditioning [R53.81] Other Visit Diagnoses:Gait abnormality [R26.9] Weakness [R53.1] Allergies As of Date: 08/09/2023 Noted Allergy Reaction CIPRO (CIPROFLOXACIN) 07/22/2009 Comments: rash with 500mg dose PENICILLINS 06/17/2002 Comments: rash Date Reviewed: 06/30/2023 Reviewed by: Tiana Mills LPN - Fully Assessed Prescriptions as of 08/09/2023 - amLODIPine (NORVASC) 5 mg tablet Take 5 mg by mouth once daily. - hydrocortisone (CORTEF) 20 mg tablet Take 1 tablet by mouth two times a day for 6 days. - hydrocortisone (CORTEF) 10 mg tablet Take 2 tablets by mouth once daily. As directed per endocrinology. Patient should start on June 20, 2023. - hydrocortisone (CORTEF) 10 mg tablet Take 1 tablet by mouth daily at bedtime. Patient should start on June 20, 2023. - pantoprazole DR (PROTONIX) 40 mg tablet Take 1 tablet by mouth daily at 6 am. - simvastatin (ZOCOR) 20 mg tablet Take 1 tablet by mouth daily at bedtime. - nitroglycerin sublingual (NITROQUICK) 0.4 mg SL tablet Dissolve 1 tablet under the tongue every 5 minutes as needed. - denosumab (PROLIA) 60 mg/mL Inject 60 mg subcutaneously once every [address] Torsten Vann, endocrinology. Due mid-June - warfarin (COUMADIN) 2.5 mg tablet Take 2.5 mg by mouth. 2.5 mg daily except 5 mg on Mondays - acetaminophen (TYLENOL) 325 mg tablet Take 650 mg by mouth every 6 hours as needed. -------- [facility] Jayce 08-08-2023 CNPN Telephone (INTMWS) -------- LINDA PERALTA ([id number]) 1945 F Date Time Provider Department 08/08/23 AMOS FLOYD INTMWS During your visit today, we recorded the following information about you: Amos Floyd MD 08/08/2023 2:44 PM Signed PT not done due to high blood pressure. Patient did not read [place] message 07/18. Clarify with patient what she is taking for hypertension. Further instructions to follow. Keep appointment this week. Isha Wright LPN 08/08/2023 4:17 PM Signed Spoke to , she called Dr. Chandra 08/02/2023, he prescribed Amlodipine (Norvasc) 5mg once daily, Patient has taken as prescribed for the last 7 days. has last PT tomorrow, 08/10/2023, unable able to do last 3 weeks, x1 d/t , x2 d/t elevated BP. Patient is planning on come to her appt. 08/11/2023. Amos Hutchins LPN, MD 08/10/2023 6:13 AM Signed I think she should increase amlodipine to 10 mg daily. [facility] gave her 90 day supply so take two tablets daily. Isha Wright LPN 08/10/2023 10:28 AM Signed Below recommendation left on identified vm. Isha Wright LPN Allergies As of Date: 08/08/2023 Noted Allergy Reaction CIPRO (CIPROFLOXACIN) 07/22/2009 Comments: rash with 500mg dose PENICILLINS 06/17/2002 Comments: rash Date Reviewed: 06/30/2023 Reviewed by: Tiana Mills LPN - Fully Assessed Reason for Visit: Hypertension [168] Prescriptions as of 08/10/2023 - amLODIPine (NORVASC) 5 mg tablet Take 5 mg by mouth once daily. - hydrocortisone (CORTEF) 20 mg tablet Take 1 tablet by mouth two times a day for 6 days. - hydrocortisone (CORTEF) 10 mg tablet Take 2 tablets by mouth once daily. As directed per endocrinology. Patient should start on June 20, 2023. - hydrocortisone (CORTEF) 10 mg tablet Take 1 tablet by mouth daily at bedtime. Patient should start on June 20, 2023. - pantoprazole DR (PROTONIX) 40 mg tablet Take 1 tablet by mouth daily at 6 am. - simvastatin (ZOCOR) 20 mg tablet Take 1 tablet by mouth daily at bedtime. - nitroglycerin sublingual (NITROQUICK) 0.4 mg SL tablet Dissolve 1 tablet under the tongue every 5 minutes as needed. - denosumab (PROLIA) 60 mg/mL Inject 60 mg subcutaneously once every [address] Torsten Vann, endocrinology. Due mid-June - warfarin (COUMADIN) 2.5 mg tablet Take 2.5 mg by mouth. 2.5 mg daily except 5 mg on Mondays - acetaminophen (TYLENOL) 325 mg tablet Take 650 mg by mouth every 6 hours as needed. Problem List As Of Date 08/08/2023 Noted Resolved Disorder of autonomic nervous system [G90.9] 10/20/2003 Adrenal hypofunction (HCC) [E27.40] DERMATITIS NOS [L25.9] 07/18/2008 IMPAIRED RENAL FUNCT NOS [N25.9] 04/26/2005 07/18/2008 BENIGN NEOPLASM LG BOWEL [D12.6] 04/26/2005 ASTHMA UNSPECIFIED [J45.909] 09/21/2005 07/18/2008 Cystocele, midline [N81.11] 07/23/2007 02/27/2017 Nontoxic multinodular goiter [E04.2] 12/11/2007 09/23/2017 Hypercalcemia [E83.52] 03/19/2009 06/13/2023 DVT of lower extremity (deep venous thrombosis)*03/28/2009 09/05/2011 Right Renal Mass [N28.89] 03/28/2009 08/26/2009 Hypokalemia [E87.6] 04/09/2009 05/14/2009 Other Specified Pre-Operative Examination [Z01.*04/09/2009 05/14/2009 SUMMARY [V999.95] 04/25/2009 08/26/2009 Elevation of Cardiac Enzymes [R74.8] 04/25/2009 08/26/2009 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] 08/26/2009 12/30/2009 CKD (chronic kidney disease) stage 3, GFR 30-59*08/26/2009 09/23/2020 Anemia [D64.9] 08/26/2009 09/09/2012 Chronic diarrhea [K52.9] 03/15/2010 03/03/2011 Collagenous colitis [K52.831] 03/30/2010 03/03/2011 ASHD (arteriosclerotic heart disease) [I25.10] 04/25/2009 DVT (deep venous thrombosis) ([facility]) [I82.409] 03/23/2012 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 [M85.80] 11/13/2013 06/30/2023 Chronic nonallergic rhinitis [J31.0] 03/20/2014 Pure hypercholesterolemia [E78.00] 02/17/2015 Gallstones [K80.20] 03/06/2016 08/24/2016 Pain of upper abdomen [R10.10] 03/10/2016 02/27/2017 Personal history of colonic polyps [Z86.010] 03/10/2016 02/27/2017 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] 11/18/2019 Hypertension [I10] 04/14/2020 Generalized muscle weakness [M62.81] 05/27/2020 06/30/2023 Stage 3b chronic kidney disease (HCC) [N18.32] 07/29/2020 Hypertensive kidney disease with stage 3b chron*07/15/2021 Hip pain [M25.559] 11/01/2022 06/30/2023 Age-related osteoporosis with current pathologi*01/19/2023 Closed displaced fracture of fifth metatarsal b*03/22/2023 Gait abnormality [R26.9] 03/28/2023 Physical deconditioning [R53.81] 05/31/2023 Weakness [R53.1] 05/31/2023 NSTEMI (non-ST elevated myocardial infarction) *06/09/2023 Adrenal insufficiency (HCC) [E27.40] 06/12/2023 Nonrheumatic aortic valve stenosis [I35.0] 06/30/2023 Nodule of lower lobe of right lung needing foll*06/08/2023 Encounter Status:Closed by PAMELA (more content not included)... [facility] CNTHERAPYon 08-02-2023 CNTHERAPY OT/PT/Speech Visit (PTWS) -------- LINDA PERALTA ([id number]) 1945 F Date Time Provider Department 08/02/23 9:15 AM KOLE EL PTWS Date Time Provider Department Center 08/02/2023 9:15 AM [id number], COLIN PTFRANCES Pearl Reason for Visit: Physical Therapy [503] Primary Visit Diagnosis:Physical deconditioning [R53.81] Other Visit Diagnoses:Gait abnormality [R26.9] Weakness [R53.1] Allergies As of Date: 08/02/2023 Noted Allergy Reaction CIPRO (CIPROFLOXACIN) 07/22/2009 Comments: rash with 500mg dose PENICILLINS 06/17/2002 Comments: rash Date Reviewed: 06/30/2023 Reviewed by: Tiana Mills LPN - Fully Assessed Prescriptions as of 08/02/2023 - hydrocortisone (CORTEF) 20 mg tablet Take 1 tablet by mouth two times a day for 6 days. - hydrocortisone (CORTEF) 10 mg tablet Take 2 tablets by mouth once daily. As directed per endocrinology. Patient should start on June 20, 2023. - hydrocortisone (CORTEF) 10 mg tablet Take 1 tablet by mouth daily at bedtime. Patient should start on June 20, 2023. - pantoprazole DR (PROTONIX) 40 mg tablet Take 1 tablet by mouth daily at 6 am. - simvastatin (ZOCOR) 20 mg tablet Take 1 tablet by mouth daily at bedtime. - nitroglycerin sublingual (NITROQUICK) 0.4 mg SL tablet Dissolve 1 tablet under the tongue every 5 minutes as needed. - denosumab (PROLIA) 60 mg/mL Inject 60 mg subcutaneously once every [address] Torsten Vann, endocrinology. Due mid-June - warfarin (COUMADIN) 2.5 mg tablet Take 2.5 mg by mouth. 2.5 mg daily except 5 mg on Mondays - acetaminophen (TYLENOL) 325 mg tablet Take 650 mg by mouth every 6 hours as needed. -------- [facility] 06-19-2023 CNPN Telephone (AGCARDPOB ) -------- CORINNALINDA Mirza ([id number]) 1945 F Date Time Provider Department 06/19/23 FELISA HANNAH AGCARDPOB During your visit today, we recorded the following information about you: Felisa Hannah APRN.SPORTS TEAM MANAGER 06/19/2023 10:44 AM Signed Please make a hospital follow up appointment to be seen by Dr. Baig or Nurse practitioner in 6-8 weeks. Thank you, Felisa Hannah APRN.Kae Chavarria 06/20/2023 8:19 AM Signed LVM and scheduled hospital follow up on 08/15/2023 at 3:30 in [place]. I sent a reminder letter as well. Thank you, Kae Yin Allergies As of Date: 06/19/2023 Noted Allergy Reaction CIPRO (CIPROFLOXACIN) 07/22/2009 Comments: rash with 500mg dose PENICILLINS 06/17/2002 Comments: rash Date Reviewed: 06/09/2023 Reviewed by: Ivy Tarango, RN - Fully Assessed Reason for Visit: Appointment [186] Prescriptions as of 06/20/2023 - hydrocortisone (CORTEF) 20 mg tablet Take 1 tablet by mouth two times a day for 6 days. - hydrocortisone (CORTEF) 10 mg tablet Take 2 tablets by mouth once daily. As directed per endocrinology. Patient should start on June 20, 2023. - hydrocortisone (CORTEF) 10 mg tablet Take 1 tablet by mouth daily at bedtime. Patient should start on June 20, 2023. - pantoprazole DR (PROTONIX) 40 mg tablet Take 1 tablet by mouth daily at 6 am. - midodrine (PROAMATINE) 2.5 mg tablet Take one tablet by mouth twice a day four hours apart. Avoid laying down flat for at least 4 hours after taking. Do not take less than four hours before bedtime - simvastatin (ZOCOR) 20 mg tablet Take 1 tablet by mouth daily at bedtime. - nitroglycerin sublingual (NITROQUICK) 0.4 mg SL tablet Dissolve 1 tablet under the tongue every 5 minutes as needed. - denosumab (PROLIA) 60 mg/mL Inject 60 mg subcutaneously once every [address] Torsten Vann, endocrinology. Due mid-June - warfarin (COUMADIN) 2.5 mg tablet Take 2.5 mg by mouth. 2.5 mg daily except 5 mg on Mondays - acetaminophen (TYLENOL) 325 mg tablet Take 650 mg by mouth every 6 hours as needed. Problem List As Of Date 06/19/2023 Noted Resolved Disorder of autonomic nervous system [G90.9] 10/20/2003 Adrenal hypofunction (HCC) [E27.40] DERMATITIS NOS [L25.9] 07/18/2008 IMPAIRED RENAL FUNCT NOS [N25.9] 04/26/2005 07/18/2008 BENIGN NEOPLASM LG BOWEL [D12.6] 04/26/2005 ASTHMA UNSPECIFIED [J45.909] 09/21/2005 07/18/2008 Cystocele, midline [N81.11] 07/23/2007 02/27/2017 Nontoxic multinodular goiter [E04.2] 12/11/2007 09/23/2017 Hypercalcemia [E83.52] 03/19/2009 06/13/2023 DVT of lower extremity (deep venous thrombosis)*03/28/2009 09/05/2011 Right Renal Mass [N28.89] 03/28/2009 08/26/2009 Hypokalemia [E87.6] 04/09/2009 05/14/2009 Other Specified Pre-Operative Examination [Z01.*04/09/2009 05/14/2009 SUMMARY [V999.95] 04/25/2009 08/26/2009 Elevation of Cardiac Enzymes [R74.8] 04/25/2009 08/26/2009 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] 08/26/2009 12/30/2009 CKD (chronic kidney disease) stage 3, GFR 30-59*08/26/2009 09/23/2020 Anemia [D64.9] 08/26/2009 09/09/2012 Chronic diarrhea [K52.9] 03/15/2010 03/03/2011 Collagenous colitis [K52.831] 03/30/2010 03/03/2011 ASHD (arteriosclerotic heart disease) [I25.10] 04/25/2009 DVT (deep venous thrombosis) ([facility]) [I82.409] 03/23/2012 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 [M85.80] 11/13/2013 Chronic nonallergic rhinitis [J31.0] 03/20/2014 Pure hypercholesterolemia [E78.00] 02/17/2015 Gallstones [K80.20] 03/06/2016 08/24/2016 Pain of upper abdomen [R10.10] 03/10/2016 02/27/2017 Personal history of colonic polyps [Z86.010] 03/10/2016 02/27/2017 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] 11/18/2019 Hypertension [I10] 04/14/2020 Generalized muscle weakness [M62.81] 05/27/2020 Stage 3b chronic kidney disease (HCC) [N18.32] 07/29/2020 Hypertensive kidney disease with stage 3b chron*07/15/2021 Hip pain [M25.559] 11/01/2022 Age-related osteoporosis with current pathologi*01/19/2023 Closed displaced fracture of fifth metatarsal b*03/22/2023 Gait abnormality [R26.9] 03/28/2023 Physical deconditioning [R53.81] 05/31/2023 Weakness [R53.1] 05/31/2023 NSTEMI (non-ST elevated myocardial infarction) *06/09/2023 Adrenal insufficiency ([facility]) [E27.40] 06/12/2023 Encounter Status:Closed by FELISA HANNAH on 06/19/23 [facility] Capillary blood internationa l normalized ratio (INR)Ordered By: Shameka Velasquez on 06-19-2023 INR Coag (BldC) [Relative time] 2.0 [facility] Comment on above: Critical Value > 4.0 Whole blood prothrombin time Ordered By: Shameka Velasquez on 06-19-2023 PT Coag (Bld) [Time] 21.3 s 11.7-14.9 [facility] Basic metabolic 2000 panelon 06-13-2023 Anion gap [Moles/Vol] 10 mmol/L Normal 9-18 [facility] Comment on above: Order Comment: Speci men Type: BLOOD SPECIMEN Ordering Facility: [facility] Address: [address] [place] [address] Performed By: #### L [id number] #### [facility] CLIA [id number] [address] [id number] [place] Calcium [Mass/Vol] 10.0 mg/dL Normal 8.5-10.2 [facility] Comment on above: Order Comment: Speci men Type: BLOOD SPECIMEN Ordering Facility: [facility] Address: [address] [place] [address] Performed By: #### L [id number] #### [facility] CLIA [id number] [address] [place] [address] [place] Chloride [Moles/Vol] 108 mmol/L High 97-105 [facility] Comment on above: Order Comment: Speci men Type: BLOOD SPECIMEN Ordering Facility: [facility] Address: [address] [place] [address] Performed By: #### L [id number] #### [facility] CLIA [id number] [address] [place] [address] [place] CO2 [Moles/Vol] 23 mmol/L Normal 22-30 [facility] Comment on above: Order Comment: Speci men Type: BLOOD SPECIMEN Ordering Facility: [facility] Address: [address] [place] [address] Performed By: #### L [id number] #### [facility] CLIA [id number] [address] [place] [address] [place] Creatinine [Mass/Vol] 1.38 mg/dL High 0.58-0.96 [facility] Comment on above: Order Comment: Jody fairbanks Type: BLOOD SPECIMEN Ordering Facility: [facility] Address: [address] [place] [address] Performed By: #### L [id number] #### [facility] CLIA [id number] [address] [place] [address] [place] Creatinine and Glomerular filtration rate.predicted panel (S/P/Bld) 39 mL/min/1.73m??? Low >=60 [facility] Comment on above: Order Comment: Jody fairbanks Type: BLOOD SPECIMEN Ordering Facility: [facility] Address: [address] [place] [address] Result Comment: Marisabel mated Glomerular Filtration Rate (eGFR) is calculated using the 2020 CKD-EPI creatinine equation. This equation utilizes serum creatinine, sex, and age as parameters. The creatinine assay has traceable calibration to isotope dilution-mass spectrometry. Refer to KDIGO guidelines for clinical interpretation. In patients with unstable renal function, e.g. those with acute kidney injury, the eGFR may not accurately reflect actual GFR. Performed By: #### L [id number] #### [facility] CLIA [id number] [address] [place] [address] [place] Glucose [Mass/Vol] 83 mg/dL Normal 74-99 [facility] Comment on above: Order Comment: Jody fairbanks Type: BLOOD SPECIMEN Ordering Facility: [facility] Address: [address] [place] [address] Result Comment: The [place] [employer] (ADA) provides guidance for cutoff values for fasting glucose and random glucose. The ADA defines fasting as no caloric intake for at least 8 hours. Fasting plasma glucose results between 100 to 125 mg/dL indicate increased risk for diabetes (prediabetes). Fasting plasma glucose results greater than or equal to 126 mg/dL meet the criteria for diagnosis of diabetes. In the absence of unequivocal hyperglycemia, results should be confirmed by repeat testing. In a patient with classic symptoms of hyperglycemia or hyperglycemic crisis, random plasma glucose results greater than or equal to 200 mg/dL meet the criteria for diagnosis of diabetes. Reference: Standards of Medical Care in Diabetes 2016, [place] [employer]. Diabetes Care. 2016.39(Suppl 1). Performed By: #### L [id number] #### [facility] CLIA [id number] [address] [place] [address] [place] Potassium [Moles/Vol] 3.5 mmol/L Low 3.7-5.1 [facility] Comment on above: Order Comment: Speci men Type: BLOOD SPECIMEN Ordering Facility: [facility] Address: [address] [place] [address] Performed By: #### L [id number] #### [facility] CLIA [id number] [address] [place] [address] [place] Sodium [Moles/Vol] 141 mmol/L Normal 136-144 [facility] Comment on above: Order Comment: Speci men Type: BLOOD SPECIMEN Ordering Facility: [facility] Address: [address] [place] [address] Performed By: #### L [id number] #### [facility] CLIA [id number] [address] [place] [address] [place] Urea nitrogen [Mass/Vol] 48 mg/dL High 7-21 [facility] Comment on above: Order Comment: Speci men Type: BLOOD SPECIMEN Ordering Facility: [facility] Address: [address] [place] [address] Performed By: #### L [id number] #### [facility] CLIA [id number] [address] [id number] [place] CBC panel Auto (Bld)on 06-12 Erythrocyte distribution width (RBC) [Ratio] 14.1 % Normal 11.5-15.0 [facility] Comment on above: Order Comment: Speci men Type: URINE SPECIMEN Ordering Facility: [facility] Address: [address] [place] [address] Performed By: #### U RMPA #### [facility] CLIA [id number] [address] [place] [address] [id number] [address] [place] Hematocrit (Bld) [Volume fraction] 36.3 % Normal 36.0-46.0 [facility] Comment on above: Order Comment: Speci men Type: URINE SPECIMEN Ordering Facility: [facility] Address: [address] [place] [address] Performed By: #### U RMPA #### [facility] CLIA [id number] [address] [place] [address] [place] Hemoglobin (Bld) [Mass/Vol] 12.0 g/dL Normal 11.5-15.5 [facility] Comment on above: Order Comment: Speci men Type: URINE SPECIMEN Ordering Facility: [facility] Address: [address] [place] [address] Performed By: #### U RMPA #### [facility] CLIA [id number] [address] [place] [address] [place] MCH (RBC) [Entitic mass] 29.6 pg Normal 26.0-34.0 [facility] Comment on above: Order Comment: Speci men Type: URINE SPECIMEN Ordering Facility: [facility] Address: [address] [place] [address] Performed By: #### U RMPA #### [facility] CLIA [id number] [address] [place] [address] [place] MCHC (RBC) [Mass/Vol] 33.1 g/dL Normal 30.5-36.0 [facility] Comment on above: Order Comment: Speci men Type: URINE SPECIMEN Ordering Facility: [facility] Address: [address] [place] [address] Performed By: #### U RMPA #### [facility] CLIA [id number] [address] [place] [address] [place] MCV (RBC) [Entitic vol] 89.4 fL Normal 80.0-100.0 [facility] Comment on above: Order Comment: Speci men Type: URINE SPECIMEN Ordering Facility: [facility] Address: [address] [place] [address] Performed By: #### U RMPA #### [facility] CLIA [id number] [address] [place] [address] [place] Nucleated RBC (Bld) [#/Vol] 10*3/uL Normal <0.01 [facility] Comment on above: Order Comment: Speci men Type: URINE SPECIMEN Ordering Facility: [facility] Address: [address] [place] [address] Performed By: #### U RMPA #### [facility] CLIA [id number] [address] [place] [address] [place] Platelet mean volume (Bld) [Entitic vol] 11.3 fL Normal 9.0-12.7 [facility] Comment on above: Order Comment: Speci men Type: URINE SPECIMEN Ordering Facility: [facility] Address: [address] [place] [address] Performed By: #### U RMPA #### [facility] CLIA [id number] [address] [place] [address] [place] Platelets (Bld) [#/Vol] 253 10*3/uL Normal 150-400 [facility] Comment on above: Order Comment: Speci men Type: URINE SPECIMEN Ordering Facility: [facility] Address: [address] [place] [address] Performed By: #### U RMPA #### [facility] CLIA [id number] [address] [place] [address] [place] RBC (Bld) [#/Vol] 4.06 10*6/uL Normal 3.90-5.20 [facility] Comment on above: Order Comment: Speci men Type: URINE SPECIMEN Ordering Facility: [facility] Address: [address] [place] [address] Performed By: #### U RMPA #### [facility] CLIA [id number] [address] [place] [address] [place] WBC (Bld) [#/Vol] 9.25 10*3/uL Normal 3.70-11.00 [facility] Comment on above: Order Comment: Speci men Type: URINE SPECIMEN Ordering Facility: [facility] Address: [address] [place] [address] Performed By: #### U RMPA #### [facility] CLIA [id number] [address] [place] [address] [place] [address] [place] CNDSon 06-13-2023 CNDS HNO ID: [id number] Author: EUGENIE LANGSTON DO Service: Hospital Medicine Author Type: Physician Type: Discharge Summary Filed: 06/13/2023 12:15 Note Text: DISCHARGE SUMMARY PATIENT NAME: Linda Peralta Code Status: DNR-CCA Highest Readmission Risk Score: 26 The 30 day readmissions risk score is derived from an internally validated risk model which evaluates patient level characteristics, utilization history, medication orders and lab results up until the day of discharge. Patients with a score of 40 or above are considered highest risk for readmission. Specific patient level drivers will be listed at the bottom of the summary. Admission Information Admission Information ADMIT DATE: 06/08/2023 DISCHARGE DATE: 06/13/23 MY DOCTORS AND MEDICAL TEAM: My Main Hospital Doctor: Eugenie Langston DO Primary Care Provider: Amos Floyd MD My Medical Team Members: Treatment Team: Attending Provider: Eugenie Langston DO Consulting: Sudheer Mijares MD Primary Service: [facility] Consulting: Josefa Price MD MY CONDITION AT DISCHARGE: Stable REASON I WAS IN THE HOSPITAL: UTI, moris's and hypercalcemia SUMMARY OF WHAT HAPPENED WHILE I WAS IN THE HOSPITAL: HPI: Ms. Peralta is a 78 year old female with h/o [place] (2009, peak trop 2, [facility] normal coronary/mild luminal irregularities, possible small coronary thrombus in the setting of hypercoagulable state in pt with recurretn spontaneous DVT), HLD, HTN, GERD, recurrent DVT on coumadin, moris disease, asthma and anemia Patient was just recently discharged from the hospital for moris crisis. He felt mild chest pressure 3 out of 10 at rest on morning. No diaphoresis, shortness of breath or nausea. No radiation. He was brought to ER and had high-sensitivity troponin checked which showed elevated around 1000, subsequent level downtrending to 900. She did not have any more chest pain since then only 2 episodes of dry heaves, last episode was evening. Her high-sensitivity troponin continued to be checked and start uptrending again from 910, 1049, 1276, 1069. 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 She underwent stress test, no ischemia. Echocardiogram showed moderate-severe aortic stenosis. Patient denies SOB on exertion, but does not walk a lot. Encourage physical activity, echo surveillance every 6-12 months. Pt to follow closely with primary cardiology as outpatient. Heparin can be switched to Coumadin. Elevated NT proBNP however clinically euvolemic on exam. Likely due to CKD. She was also found to have UTI and hypercalcemia Suspect presentation was from UTI and needing stress dose steroids along with hypercalcemia She finished her ceftriaxone course She was given stress dose steroids with much improvement Continue Cortef 20 mg twice daily. Will taper slowly, in 1 week start 20 mg in the morning and 10 mg -Stress dose of Cortef with sickness discussed with patient. 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 Hypercalcemia is Longstanding; diagnosed in 2009 for records. Low to low normal PTH levels. No evidence of malignancy. PTH RP normal. Likely etiology is granulomatous disease with high 1, 25 dihydroxy vitamin D level. Chest CT has been normal. Received Zometa 2 weeks ago; calcium increasing again. -Recent hospital admission 05/24/23-05/26/23, records reviewed; 05/24/2023 labs: Calcium 11.5 with a PTH of 11.5; given Zometa. 05/25/2023 labs: Calcium 9.9, PTH 16.3. -Patient states she was not drinking enough liquids after going home from the hospital. Prior to that, she was trying to drink almost 1 gallon of liquids every day. -Calcium 13.7 on 06/08/2023; aggressive IV hydration. Denosumab 120 mg subcu given on 06/10/2023. 06/12: Calcium improving, 10(10.7)(11.1)(10.5)(11. 6). Goal of calcium level <11; try to maintain with hydration. -Oral fluids encouraged; try to drink 8-10 servings of 8 ounce cups of liquids daily, between 80 to 96 ounces total fluids daily. OTHER PROBLEMS/DIAGNOSIS: Principal Problem: NSTEMI (non-ST elevated myocardial infarction) (HCC) Active Problems: Adrenal hypofunction (HCC) Stage 3b chronic kidney disease (HCC) Adrenal insufficiency (HCC) Resolved Problems: Hypercalcemia OPERATIONS PERFORMED WHILE IN THE HOSPITAL: None IMPORTANT TEST/PROCEDURES: Echocardiogram TEST RESULTS NOT AVAILABLE AT THIS TIME: No pending results Discharge Disposition Discharge Disposition: Home With Self Care Additional Provider to Provider Information: No notes on file Treatment Team: Attending Provider: Eugenie Langston DO Consulting: Sudheer Mijares MD Primary Service: [facility] Consulting: Josefa Price MD Transitions of Care Critical Issues: SPECIALIST FOLLOW-UP: Endocrinology outpatient LABS AND PROCEDURES PENDING AT DISCHARGE: No pending results. FOLLOW-UP APPOINTMENTS ALREADY SCHEDULED (more content not included)... Normal [facility] CONSULT PROGon 06-13-2023 CONSULT PROG HNO ID: [id number] Author: SOLEDAD CURRIE RPh Service: Pharmacy Author Type: Pharmacist Type: Consult Progress Note Filed: 06/13/2023 12:10 Note Text: PHARMACY ANTICOAGULATION CONSULT PATIENT NAME: Linda Peralta DATE of SERVICE: 06/13/2023 TIME of SERVICE: 11:53 AM Addendum: I have read and agree with the students note except as written in blue Soledad Currie RPh Indication for Anticoagulation: Pulmonary Embolus Goal INR: 2.0 to 3.0 Expected Duration of Therapy: Indefinite Assessment: New Start: No Home Dose: warfarin 2.5 mg daily except 5 mg on Mondays Other Anticoagulants: Heparin drip Dosing Considerations/Precautio ns: Renal Insufficiency High fall risk Drug Interactions: Heparin, acetaminophen, hydrocortisone, and simvastatin can all increase risk of bleeding or efficacy of warfarin. Evidence of side effects?: No Plan: Patient is currently subtherapeutic (INR 1.5). Based on the dosing algorithm approved by the hospital Pharmacy and Therapeutics Committee, the following order will be initiated: Warfarin 5 mg PO x 1 dose, since this is the second dose for the patient. Date INR Dose 06/12/23 1.5 5 mg 06/13/23 1.2 5 mg Giving increased dose due to low INR after warfarin was held for several days, did not see full effects of 5 mg dose so will redose with 5 mg x 1. Patient?s INR, condition, and signs/symptoms of bleeding will be monitored daily. Recommended post discharge dosing: KENNETH Thank you for allowing me to participate in the care for this patient. Current Laboratory Values Recent Labs 06/13/23 0603 06/12/23 0547 06/12/23 0004 06/11/23 1827 06/09/23 0727 06/09/23 0107 06/08/23 1407 APTT 37.3* 63.4* 65.2* 52.5* < > 48.7* 37.9* INR 1.2 1.5* -- -- -- 3.1* 2.9* < > = values in this interval not displayed. Recent Labs 06/13/23 0603 06/12/23 0547 06/11/23 0518 06/10/23 0506 HB 12.0 11.9 12.5 11.6 HCT 36.3 35.5* 36.5 37.0 PLT 253 299 316 220 Estimated Creatinine Clearance: 28.9 mL/min (A) (based on SCr of 1.38 mg/dL (H)). Current Medications Current Facility-Administered Medications Medication Dose Route Frequency midodrine 2.5 mg tab(s) (PROAMATINE) 2.5 mg ORAL TID (q 4 H) simvastatin 20 mg tab(s) (ZOCOR) 20 mg ORAL AT BEDTIME NaCl 0.9% iv flush bag 20 mL INTRAVENOUS PRN heparin iv infusion 25,000 units in NaCl 0.45% 250 mL LOW DOSE/ACS NOMOGRAM 0-3,000 Units/hr INTRAVENOUS CONTINUOUS And heparin RATE CHANGE bolus 1,000-4,000 Units for subtherapeutic PTTAC results 1,000-4,000 Units INTRAVENOUS PRN ondansetron (PF) 4 mg injection (ZOFRAN) 4 mg INTRAVENOUS q 6 H PRN acetaminophen 650 mg tab(s) (TYLENOL) 650 mg ORAL q 4 H PRN polyethylene glycol 3350 17 g packet 17 g ORAL DAILY PRN sodium chloride 0.9 % (flush) 2-10 mL (BD POSIFLUSH) 2-10 mL INTRAVENOUS DIRECTED PRN pantoprazole DR 40 mg tab(s) (PROTONIX) 40 mg ORAL DAILY (6 AM) hydrocortisone 20 mg tab(s) (CORTEF) 20 mg ORAL BID PC WARFARIN DOSING PER PHARMACY 1 Each OTHER DAILY - WARFARIN Has patient received education: No Signature: Rosie Hudson, clinical pharmacy coordinator [facility] CONSULT PROG HNO ID: [id number] Author: JOSEFA PRICE MD Service: Endocrinology Author Type: Physician Type: Consult Progress Note Filed: 06/13/2023 08:27 Note Text: ENDOCRINOLOGY CONSULT PROGRESS NOTE SERVICE DATE: 06/13/2023 SERVICE TIME: 6:24 AM Subjective INTERVAL HPI: Following for Adrenal Insufficiency, Hypercalcemia. Notes and orders reviewed. Below is pertinent historical data that will be updated during this visit to reflect the patients current status. Diet: DIET REGULAR p.o intake good. Activity:Up AdLib Review of Systems: No nausea, no dry mouth or excessive thirst, no polyuria. 06/11: NPO; for cardiac stress test today. 06/12: D/C plan for today. HPI: Ms. 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 Patient interviewed, spoke with her daughter Souleymane, reviewed notes from previous endocrinologists. - Hypercalcemia originally diagnosed in 2009; Calcium 15; low to low normal PTH,likely etiology is elevated 1,25 [place] vitamin D. BIMAL levels have been normal when tested, PTHrp has been repeatedly negative. She had had multiple whole body radiology assessments looking for malignancy and no etiology found (most recently 05/13 at [facility]). Normal lungs and no hilar adenopathy noted. Longstanding adrenal insufficiency; was on prednisone in past; failed taper. Her daughter states that her outpatient hydrocortisone dose for moris's was reduced from 20 mg AM and 10 mg PM to 20 mg QAM only about 6 months ago While admitted to 2 weeks ago, received hydration, calcitonin (made her very nauseous) and Zometa. Calcium was 12.6 on admission 05/24/23 and 8.6 on discharge 05/26/23 She was re-admitted 06/08/23 to [facility], calcium 13.7 on admission. She has received hydration only this admission for calcium, down to 11.6 06/08, 10.6 06/09. 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) Current Facility-Administered Medications Medication Dose Route Frequency midodrine 2.5 mg tab(s) (PROAMATINE) 2.5 mg ORAL TID (q 4 H) simvastatin 20 mg tab(s) (ZOCOR) 20 mg ORAL AT BEDTIME NaCl 0.9% iv flush bag 20 mL INTRAVENOUS PRN cefTRIAXone iv piggyback 1 g in dextrose (iso-osmotic) 50 mL (ROCEPHIN) 1 g INTRAVENOUS q 24 H heparin iv infusion 25,000 units in NaCl 0.45% 250 mL LOW DOSE/ACS NOMOGRAM 0-3,000 Units/hr INTRAVENOUS CONTINUOUS And heparin RATE CHANGE bolus 1,000-4,000 Units for subtherapeutic PTTAC results 1,000-4,000 Units INTRAVENOUS PRN ondansetron (PF) 4 mg injection (ZOFRAN) 4 mg INTRAVENOUS q 6 H PRN acetaminophen 650 mg tab(s) (TYLENOL) 650 mg ORAL q 4 H PRN polyethylene glycol 3350 17 g packet 17 g ORAL DAILY PRN sodium chloride 0.9 % (flush) 2-10 mL (BD POSIFLUSH) 2-10 mL INTRAVENOUS DIRECTED PRN pantoprazole DR 40 mg tab(s) (PROTONIX) 40 mg ORAL DAILY (6 AM) hydrocortisone 20 mg tab(s) (CORTEF) 20 mg ORAL BID PC WARFARIN DOSING PER PHARMACY 1 Each OTHER DAILY - WARFARIN Objective PHYSICAL EXAM: Appearance: Well appearing, alert, in no acute distress, well-hydrated. Eyes: PERRLA, conjunctiva and sclera normal Neck: Supple, no adenopathy; thyroid symmetric, normal size, no bruits Heart: RRR without murmur, gallop, or rubs. No ectopy Lungs Lungs clear to auscultation. No wheezing, rhonchi, rales. Abdomen bowel sounds normoactive, no bruits, soft, non-tender, non-distended Extremities: No deformities, edema, skin discoloration, clubbing or cyanosis. Neuro: Awake, alert and oriented x 3 and No involuntary motions. Skin: Color, texture, turgor normal. No rashes or lesions BP 144/91 Pulse 62 Temp (Src) 97.5 (Oral) Resp 16 Ht 5' 2 (1.58m) Wt 144 lb 13.5 oz (65.7kg) SpO2 99% BMI 26.49 kg/(m2). O2 Therapy: Room Air DATA: Diagnostic tests reviewed for today's visit: Most recent labs and imaging results. Calcium, Total Date Value Ref Range Status 06/13/2023 10.0 8.5 - 10.2 mg/dL Final Assessment/Plan Adrenal Insufficiency; longstanding history of adrenal insufficiency. Had been on prednisone in 2009, prior to diagnosis of hypercalcemia as well. Maintained on hydrocortisone 20 mg daily morning for the last 6 months. -Currently on stress dose steroids, IV hydrocortisone 25 mg every 8 hours. -N.p.o. for stress test today am. IV hydrocortisone given at 6 AM. 06/11: Will change to p.o. Cortef 20 mg twice daily after diet started. 06/12: Stable clinically, electrolytes stable. Continue Cortef 20 mg twice daily. -Will taper slowly, 20 mg in the morning and 10 mg in the evening after ~ 1 week. -Stress dose of Cortef with sickness discussed with patient. 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 Hypercalcemia (POA: Yes) Assessment AND Plan: Longstanding; diagnosed in 2009 for records. Low to low normal PTH levels. No evidence of malignancy. PTH RP normal. Likely etiolo (more content not included)... Normal [facility] PT panel Coag (PPP)on 2023 INR Coag (PPP) [Relative time] 1.2 {INR} Normal 0.9-1.3 [facility] Comment on above: Order Comment: Speci men Type: BLOOD SPECIMEN Ordering Facility: [facility] Address: [address] [place] [address] Result Comment: Saray min K Antagonist (VKA) Therapeutic Range: INR 2 to 3 (Target INR of 2.5) Note: For patients treated with VKA drugs, such as warfarin, the [place] [employer] 2012 Guideline recommends a therapeutic INR range of 2 to 3 (target INR of 2.5). This recommendation includes high-risk patients with antiphospholipid syndrome with previous arterial or venous thromboembolism, current-generation mechanical or bioprosthetic aortic heart valve replacement. Note: Patients with mechanical aortic valve replacement and additional risk factors for thromboembolic events (atrial fibrillation, previous thromboembolism, LV dysfunction, hypercoagulable conditions) or an older generation mechanical AVR (i.e., ball in-Cage) or any mechanical MVR should have a INR therapeutic range of 2.5 to 3.5 (target INR of 3). Lindsey GH, et al. Chest 2012, 141:7S-47S Bandar RA, et al. [facility] 2017, 70: 252-289 Performed By: #### 3 4528-0, 03888-3 #### [facility] CLIA [id number] [address] [facility] PT Coag (PPP) [Time] 13.0 s Normal 9.7-13.0 [facility] Comment on above: Order Comment: Jody fairbanks Type: BLOOD SPECIMEN Ordering Facility: [facility] Address: [address] [place] [address] Performed By: #### 3 4528-0, 04840-2 #### [facility] CLIA [id number] [address] aPTT PPPon 06-13-2023 aPTT Coag (PPP) [Time] 37.3 s High 23.0-32.4 [facility] Comment on above: Order Comment: Jody fairbanks Type: BLOOD SPECIMEN Ordering Facility: [facility] Address: [address] [place] [address] Performed By: #### 3 4528-0, 87340-3 #### [facility] CLIA [id number] [address] [place] [address] CASE MANAGEMon 06-12-2023 CASE MANAGEM HNO ID: [id number] Author: CHERIE ELAINE RN Service: ? Author Type: Registered Nurse Type: Care Mgt Progress Note Filed: 06/12/2023 09:58 Note Text: CARE MANAGEMENT PROGRESS NOTE SERVICE DATE: 06/12/2023 SERVICE TIME: 9:58 AM LOS: 3 days Plan is home with self care once medically ready, family to transport. CM to follow for transitional needs SIGNATURE: Cherie Elaine RN PATIENT NAME: Linda Peralta DATE: June 12, 2023 TIME: 9:58 AM PAGER/CONTACT #: [phone] Normal [facility] CBC panel Auto (Bld)on 06-11 Erythrocyte distribution width (RBC) [Ratio] 14.0 % Normal 11.5-15.0 [facility] Comment on above: Order Comment: Speci men Type: BLOOD SPECIMEN Ordering Facility: [facility] Address: [address] [place] [address] Performed By: #### 3 4528-0, 25341-7 #### [facility] CLIA [id number] [address] Hematocrit (Bld) [Volume fraction] 35.5 % Low 36.0-46.0 [facility] Comment on above: Order Comment: Speci men Type: BLOOD SPECIMEN Ordering Facility: [facility] Address: [address] [place] [address] Performed By: #### 3 4528-0, 22853-4 #### [facility] CLIA [id number] [address] Hemoglobin (Bld) [Mass/Vol] 11.9 g/dL Normal 11.5-15.5 [facility] Comment on above: Order Comment: Speci men Type: BLOOD SPECIMEN Ordering Facility: [facility] Address: [address] [place] [address] Performed By: #### 3 4528-0, 60743-5 #### [facility] CLIA [id number] [address] [place] [facility] MCH (RBC) [Entitic mass] 29.2 pg Normal 26.0-34.0 [facility] Comment on above: Order Comment: Speci men Type: BLOOD SPECIMEN Ordering Facility: [facility] Address: [address] [place] [address] Performed By: #### 3 4528-0, 58985-7 #### [facility] CLIA [id number] [address] OF [place] MCHC (RBC) [Mass/Vol] 33.5 g/dL Normal 30.5-36.0 [facility] Comment on above: Order Comment: Speci men Type: BLOOD SPECIMEN Ordering Facility: [facility] Address: [address] [place] [address] Performed By: #### 3 4528-0, 54309-8 #### [facility] CLIA [id number] [address] MCV (RBC) [Entitic vol] 87.0 fL Normal 80.0-100.0 [facility] Comment on above: Order Comment: Speci men Type: BLOOD SPECIMEN Ordering Facility: [facility] Address: [address] [place] [address] Performed By: #### 3 4528-0, 88762-5 #### [facility] CLIA [id number] [address] Nucleated RBC (Bld) [#/Vol] 10*3/uL Normal <0.01 [facility] Comment on above: Order Comment: Speci men Type: BLOOD SPECIMEN Ordering Facility: [facility] Address: [address] [place] [address] Performed By: #### 3 4528-0, 43368-5 #### [facility] CLIA [id number] [address] Platelet mean volume (Bld) [Entitic vol] 11.3 fL Normal 9.0-12.7 [facility] Comment on above: Order Comment: Speci men Type: BLOOD SPECIMEN Ordering Facility: [facility] Address: [address] [place] [address] Performed By: #### 3 4528-0, 62903-4 #### [facility] CLIA [id number] [address] Platelets (Bld) [#/Vol] 299 10*3/uL Normal 150-400 [facility] Comment on above: Order Comment: Speci men Type: BLOOD SPECIMEN Ordering Facility: [facility] Address: [address] [place] [address] Performed By: #### 3 4528-0, 48214-6 #### [facility] CLIA [id number] [address] [facility] RBC (Bld) [#/Vol] 4.08 10*6/uL Normal 3.90-5.20 [facility] Comment on above: Order Comment: Speci men Type: BLOOD SPECIMEN Ordering Facility: [facility] Address: [address] [place] [address] Performed By: #### 3 4528-0, 01332-2 #### [facility] CLIA [id number] [address] WBC (Bld) [#/Vol] 11.23 10*3/uL High 3.70-11.00 [facility] Comment on above: Order Comment: Speci men Type: BLOOD SPECIMEN Ordering Facility: [facility] Address: [address] [place] [address] Performed By: #### 3 4528-0, 52210-0 #### [facility] CLIA [id number] [address] CONSULT PROGon 06-12-2023 CONSULT PROG HNO ID: [id number] Author: CHRISTELLE PHILLIPS RPh Service: Pharmacy Author Type: Pharmacist Type: Consult Progress Note Filed: 06/12/2023 16:09 Note Text: PHARMACY ANTICOAGULATION CONSULT PATIENT NAME: Linda Peralta DATE of SERVICE: 06/12/2023 TIME of SERVICE: 4:05 PM Indication for Anticoagulation: Pulmonary Embolus Goal INR: 2.0 to 3.0 Expected Duration of Therapy: Indefinite Assessment: New Start: No Home Dose: warfarin 2.5 mg daily except 5 mg on Mondays Other Anticoagulants: Heparin drip Dosing Considerations/Precautio ns: Renal Insufficiency Drug Interactions:CTX may enhance the effects of warfarin Evidence of side effects?: No Plan: Patient is currently subtherapeutic. Based on the dosing algorithm approved by the hospital Pharmacy and Therapeutics Committee, the following order will be initiated: Warfarin 5 mg PO x 1 dose Date INR Dose 06/12/23 1.5 5 mg Patient?s INR, condition, and signs/symptoms of bleeding will be monitored daily. Recommended post discharge dosing: kenneth Thank you for allowing me to participate in the care for this patient. Current Laboratory Values Recent Labs 06/12/23 0547 06/12/23 0004 06/11/23 1827 06/11/23 1152 06/09/23 0727 06/09/23 0107 06/08/23 1407 APTT 63.4* 65.2* 52.5* 47.6* < > 48.7* 37.9* INR 1.5* -- -- -- -- 3.1* 2.9* < > = values in this interval not displayed. Recent Labs 06/12/23 0547 06/11/23 0518 06/10/23 0506 06/09/23 0727 HB 11.9 12.5 11.6 14.0 HCT 35.5* 36.5 37.0 42.9 PLT 299 316 220 290 Estimated Creatinine Clearance: 24.2 mL/min (A) (based on SCr of 1.65 mg/dL (H)). Current Medications Current Facility-Administered Medications Medication Dose Route Frequency midodrine 2.5 mg tab(s) (PROAMATINE) 2.5 mg ORAL TID (q 4 H) simvastatin 20 mg tab(s) (ZOCOR) 20 mg ORAL AT BEDTIME NaCl 0.9% iv flush bag 20 mL INTRAVENOUS PRN cefTRIAXone iv piggyback 1 g in dextrose (iso-osmotic) 50 mL (ROCEPHIN) 1 g INTRAVENOUS q 24 H heparin iv infusion 25,000 units in NaCl 0.45% 250 mL LOW DOSE/ACS NOMOGRAM 0-3,000 Units/hr INTRAVENOUS CONTINUOUS And heparin RATE CHANGE bolus 1,000-4,000 Units for subtherapeutic PTTAC results 1,000-4,000 Units INTRAVENOUS PRN ondansetron (PF) 4 mg injection (ZOFRAN) 4 mg INTRAVENOUS q 6 H PRN acetaminophen 650 mg tab(s) (TYLENOL) 650 mg ORAL q 4 H PRN polyethylene glycol 3350 17 g packet 17 g ORAL DAILY PRN sodium chloride 0.9 % (flush) 2-10 mL (BD POSIFLUSH) 2-10 mL INTRAVENOUS DIRECTED PRN pantoprazole DR 40 mg tab(s) (PROTONIX) 40 mg ORAL DAILY (6 AM) hydrocortisone 20 mg tab(s) (CORTEF) 20 mg ORAL BID PC WARFARIN DOSING PER PHARMACY 1 Each OTHER DAILY - WARFARIN Has patient received education: No Signature: Christelle Phillips RPh Pager/Extension: Quid pharmacist Normal [facility] CONSULT PROG HNO ID: [id number] Author: MERRILL BAIG MD Service: Clinical Cardiology Author Type: Physician Type: Consult Progress Note Filed: 06/12/2023 15:06 Note Text: Cardiology Progress Note Interval HPI: No new symptoms no cp or SOB Most recent labs: Recent Labs 06/12/23 0547 06/10/23 1753 06/10/23 1354 WBC 11.23* < > -- RBC 4.08 < > -- HB 11.9 < > -- HCT 35.5* < > -- MCV 87.0 < > -- MCH 29.2 < > -- MCHC 33.5 < > -- RDWCV 14.0 < > -- PLT 299 < > -- MPV 11.3 < > -- GLUC 132* < > -- BUN 54* < > -- CREAT 1.65* < > -- NA 143 < > -- K 4.0 < > -- CHLOR 109* < > -- CO2 24 < > -- TPROT -- -- 4.2* ALB 3.1* -- -- CA 10.7* < > -- APTT 63.4* < > -- < > = values in this interval not displayed. O/E: BP 161/97 Pulse 67 Temp 36.4 ?C (97.5 ?F) Resp 18 Ht 157.5 cm (5' 2) Wt 65.7 kg (144 lb 13.5 oz) SpO2 97% BMI 26.49 kg/m? The pt is alert and oriented X 3 HEENT: No Icterus/Pale Conjunctiva/LAD CVS : JVP not raised. RR, S1 - S2 heard, no murmurs, rubs or gallops appreciated. PUL : CTA B/L. No wheezes/crackles heard ABD : BS +, soft. No tenderness elicited LE : No Edema. Distal Pulses palpable B/L Home medication: No current facility-administered medications on file prior to encounter. Current Outpatient Medications on File Prior to Encounter Medication Sig midodrine (PROAMATINE) 2.5 mg tablet Take one tablet by mouth twice a day four hours apart. Avoid laying down flat for at least 4 hours after taking. Do not take less than four hours before bedtime hydrocortisone (CORTEF) 10 mg tablet Take 10 mg by mouth two times a day. As directed per endocrinology. simvastatin (ZOCOR) 20 mg tablet Take 1 tablet by mouth daily at bedtime. nitroglycerin sublingual (NITROQUICK) 0.4 mg SL tablet Dissolve 1 tablet under the tongue every 5 minutes as needed. denosumab (PROLIA) 60 mg/mL Inject 60 mg subcutaneously once every [address] Torsten Vann, endocrinology. Due mid-June warfarin (COUMADIN) 2.5 mg tablet Take 1 tablet by mouth once daily. acetaminophen (TYLENOL) 325 mg tablet Take 650 mg by mouth every 6 hours as needed. dupilumab 300 mg/2 mL subcutaneous pen injector (SpaceIL) .[id number] (Patient not taking: Reported on 06/09/2023) fluticasone (FLONASE) 50 mcg/actuation nasal spray Use 2 Sprays in each nostril once daily. Rinse mouth after use. (Patient not taking: Reported on 06/09/2023) Inpatient medications: Current Facility-Administered Medications Medication Dose Route Frequency midodrine 2.5 mg tab(s) (PROAMATINE) 2.5 mg ORAL TID (q 4 H) simvastatin 20 mg tab(s) (ZOCOR) 20 mg ORAL AT BEDTIME NaCl 0.9% iv flush bag 20 mL INTRAVENOUS PRN cefTRIAXone iv piggyback 1 g in dextrose (iso-osmotic) 50 mL (ROCEPHIN) 1 g INTRAVENOUS q 24 H heparin iv infusion 25,000 units in NaCl 0.45% 250 mL LOW DOSE/ACS NOMOGRAM 0-3,000 Units/hr INTRAVENOUS CONTINUOUS And heparin RATE CHANGE bolus 1,000-4,000 Units for subtherapeutic PTTAC results 1,000-4,000 Units INTRAVENOUS PRN ondansetron (PF) 4 mg injection (ZOFRAN) 4 mg INTRAVENOUS q 6 H PRN acetaminophen 650 mg tab(s) (TYLENOL) 650 mg ORAL q 4 H PRN polyethylene glycol 3350 17 g packet 17 g ORAL DAILY PRN sodium chloride 0.9 % (flush) 2-10 mL (BD POSIFLUSH) 2-10 mL INTRAVENOUS DIRECTED PRN pantoprazole DR 40 mg tab(s) (PROTONIX) 40 mg ORAL DAILY (6 AM) hydrocortisone 20 mg tab(s) (CORTEF) 20 mg ORAL BID PC Assessment Troponin elevation, NSTEMI type I versus non-NV acute on chronic chronic myocardial injury in the setting of CKD with dehydration (creatinine was 1.97 downtrending to 1.73) and mild lactic acidosis (initial level was 2.6, improved to 2.3). Aortic stenosis (recent echo 03/2023 did not assess aortic stenosis severity, while in 2021 it was considered as mild aortic stenosis) History of [place] 2009 CKD stage IV (baseline creatinine 1.8, GFR 26) [place] disease on chronic steroid Recurrent DVT on Coumadin Mild hypotension, attributed due to [place] disease on midodrine Hypercalcemia, unclear etiology Recommendations/Plan: Personally reviewed the stress test, no ischemia. Echocardiogram showed moderate-severe aortic stenosis. Patient denies SOB on exertion, but does not walk a lot. Encourage physical activity, echo surveillance every 6-12 months. Pt to follow closely with primary cardiology as outpatient. Heparin can be switched to Coumadin. Elevated NT proBNP however clinically euvolemic on exam. Likely due to CKD. Denies dysuria, currently empirical treated with ceftriaxone Pt is stable and can be discharged from cardiac standpoint Merrill Baig MD, [facility] General Cardiology #[id number] Normal [facility] CONSULT PROG HNO ID: [id number] Author: JOSEFA PRICE MD Service: Endocrinology Author Type: Physician Type: Consult Progress Note Filed: 06/12/2023 08:54 Note Text: ENDOCRINOLOGY CONSULT PROGRESS NOTE SERVICE DATE: 06/12/2023 SERVICE TIME: 6:04 AM Subjective INTERVAL HPI: Following for Adrenal Insufficiency, Hypercalcemia. Notes and orders reviewed. Below is pertinent historical data that will be updated during this visit to reflect the patients current status. Diet: DIET NPO p.o. intake fair on 06/11/2023 Activity:Up AdLib Review of Systems: No chest pain, no shortness of breath. No nausea, no pain abdomen. No dry mouth or excessive thirst. - NPO; for cardiac stress test today HPI: Ms. Linda Peralta is a 78 year old female with a long history of hypercalcemia of undetermined cause, as well as [place] disease. Patient interviewed, spoke with her daughter Souleymane, reviewed notes from previous endocrinologists. - Hypercalcemia originally diagnosed in 2009; Calcium 15; low to low normal PTH,likely etiology is elevated 1,25 [place] vitamin D. BIMAL levels have been normal when tested, PTHrp has been repeatedly negative. She had had multiple whole body radiology assessments looking for malignancy and no etiology found (most recently 05/13 at [facility]). Normal lungs and no hilar adenopathy noted. Longstanding adrenal insufficiency; was on prednisone in past; failed taper. Her daughter states that her outpatient hydrocortisone dose for moris's was reduced from 20 mg AM and 10 mg PM to 20 mg QAM only about 6 months ago While admitted to 2 weeks ago, received hydration, calcitonin (made her very nauseous) and Zometa. Calcium was 12.6 on admission 05/24/23 and 8.6 on discharge 05/26/23 She was re-admitted 06/08/23 to [facility], calcium 13.7 on admission. She has received hydration only this admission for calcium, down to 11.6 06/08, 10.6 06/09. 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) Current Facility-Administered Medications Medication Dose Route Frequency midodrine 2.5 mg tab(s) (PROAMATINE) 2.5 mg ORAL TID (q 4 H) simvastatin 20 mg tab(s) (ZOCOR) 20 mg ORAL AT BEDTIME NaCl 0.9% iv flush bag 20 mL INTRAVENOUS PRN cefTRIAXone iv piggyback 1 g in dextrose (iso-osmotic) 50 mL (ROCEPHIN) 1 g INTRAVENOUS q 24 H heparin iv infusion 25,000 units in NaCl 0.45% 250 mL LOW DOSE/ACS NOMOGRAM 0-3,000 Units/hr INTRAVENOUS CONTINUOUS And heparin RATE CHANGE bolus 1,000-4,000 Units for subtherapeutic PTTAC results 1,000-4,000 Units INTRAVENOUS PRN ondansetron (PF) 4 mg injection (ZOFRAN) 4 mg INTRAVENOUS q 6 H PRN acetaminophen 650 mg tab(s) (TYLENOL) 650 mg ORAL q 4 H PRN polyethylene glycol 3350 17 g packet 17 g ORAL DAILY PRN sodium chloride 0.9 % (flush) 2-10 mL (BD POSIFLUSH) 2-10 mL INTRAVENOUS DIRECTED PRN And perflutren lipid microspheres 1.1 mg/mL 1.3 mL injection (DEFINITY) 1.3 mL INTRAVENOUS DIRECTED PRN pantoprazole DR 40 mg tab(s) (PROTONIX) 40 mg ORAL DAILY (6 AM) hydrocortisone sodium succinate (PF) 25 mg injection (Solu-CORTEF) 25 mg INTRAVENOUS q 8 H Objective PHYSICAL EXAM: Appearance: Well appearing, alert, in no acute distress, well-hydrated. Eyes: PERRLA, conjunctiva and sclera normal Neck: Supple, no adenopathy; thyroid symmetric, normal size, no bruits Heart: RRR without murmur, gallop, or rubs. No ectopy Lungs Lungs clear to auscultation. No wheezing, rhonchi, rales. Abdomen bowel sounds normoactive, no bruits, soft, non-tender, non-distended Extremities: No deformities, edema, skin discoloration, clubbing or cyanosis. Neuro: Awake, alert and oriented x 3 and No involuntary motions. Skin: Color, texture, turgor normal. No rashes or lesions BP 139/84 Pulse 77 Temp (Src) 97.5 (Oral) Resp 18 Ht 5' 2 (1.58m) Wt 144 lb 13.5 oz (65.7kg) SpO2 95% BMI 26.49 kg/(m2). O2 Therapy: Room Air DATA: Diagnostic tests reviewed for today's visit: Most recent labs and imaging results. Calcium, Total Date Value Ref Range Status 06/11/2023 11.1 (H) 8.5 - 10.2 mg/dL Final Assessment/Plan Adrenal Insufficiency; longstanding history of adrenal insufficiency. Had been on prednisone in 2009, prior to diagnosis of hypercalcemia as well. Maintained on hydrocortisone 20 mg daily morning for the last 6 months. -Currently on stress dose steroids, IV hydrocortisone 25 mg every 8 hours. -N.p.o. for stress test today am. IV hydrocortisone given at 6 AM. - Will change to p.o. Cortef 20 mg twice daily after diet started. -Will taper slowly, 20 mg in the morning and 10 mg in the evening after 1 week. Hypercalcemia (POA: Yes) Assessment AND Plan: Longstanding; diagnosed in 2009 for records. Low to low normal PTH levels. No evidence of malignancy. PTH RP normal. Likely etiology is granulomatous disease with high 1, 25 dihydroxy vitamin D level. Chest CT (more content not included)... Normal [facility] ECHOon 06-12-2023 Echocardiography Echocardiography Rep ort: Transthoracic Echo [facility] Date of service: 06/12/2023 12:03:14 PM [facility] Ordering physician: SADIA ALCANTARA Indication: Abnormal Cardiac Biomarkers Technologist: Tyrell Umanzor [facility] Interpreting physician: Bobby Bosch MD PATIENT: Name: MRS. LINDA PERALTA : 1945 Age: 78 years Gender: F History of hypertension, coronary artery disease and chronic kidney disease. Primary rhythm: sinus. Height: 157.50 cm BSA: 1.70 m Weight: 65.70 kg BMI: 26.5 kg/m Heart rate 74 bpm Blood pressure 144/91 mmHg Technically difficult exam due to body habitus. Color Doppler was utilized to interrogate the cardiac valves assessed and spectral Doppler was utilized to determine the flow velocities and pressure gradients reported in this exam. MEASUREMENTS: Value Indexed Normal Max aortic dimension 3.3 cm Ao < 3.8 Left atrial volume 77 ml (biplane A-L) 45 ml/m Keo <= 34 LV ID (diastole) 4.5 cm (2D) 2.64 cm/m LV ID (systole) 3.1 cm (2D) 1.81 cm/m IVS, leaflet tips 1.0 cm (2D) IVS, proximal 1.5 cm (2D) Posterior wall thickness 1.0 cm (2D) Left ventricular mass 159 g (2D) 94 g/m LV stroke volume 51 ml (2D biplane) LVOT stroke volume 57 ml 34 ml/m LV end diastolic volume 90 ml (2D biplane) 52.8 ml/m 29<=EDVi<62 LV end systolic volume 39 ml (2D biplane) 22.8 ml/m Ejection Fraction 57 % (2D biplane) EF > 54 FINDINGS: LEFT VENTRICLE The left ventricle is normal in size. There is mild upper septal left ventricular hypertrophy. Left ventricular systolic function is normal regionally. Left ventricular diastolic function was not evaluated due to >2+ MR. Mitral annular lateral E/e': 12.0. Mitral annular septal E/e': 14.0. Definity contrast used for endocardial border detection. Wall Motion: The apical lateral segment is severely hypokinetic. The apical septal segment, apical anterior segment, apical inferior segment, and apex are mildly hypokinetic. All remaining scored segments are normal. RIGHT VENTRICLE The right ventricle is normal in size. Right ventricular systolic function is normal. RV systolic tissue Doppler velocity is 19.0 cm/s. Tricuspid annular displacement is 2.4 cm. Estimated right ventricular systolic pressure is likely underestimated due to a weak or incomplete tricuspid regurgitation signal and is, at least, 40 mmHg consistent with mild pulmonary hypertension. Estimated right atrial pressure is 3 mmHg based on IVC assessment. LEFT ATRIUM The left atrial cavity is moderately dilated. RIGHT ATRIUM The right atrial cavity is normal in size. Inferior Vena Cava: The inferior vena cava appears normal measuring 2.0 cm. The vessel decreases greater than 50 percent with inspiration. MITRAL VALVE There is moderate (2+ - 3+) late systolic mitral valve regurgitation due to prolapse. There is mild thickening. There is mild calcification. Regurgitant orifice area (PISA) is 0.16 cm . The pressure half time is 93 msec. The peak mitral E/A ratio is 0.70. The average mitral E/e' ratio is 13.0. The mitral flow deceleration time is 319 msec. TRICUSPID VALVE The tricuspid valve leaflets are structurally normal. There is moderate (2+ - 3+) tricuspid valve regurgitation. AORTIC VALVE There is paradoxical low flow, low gradient, moderately severe aortic valve stenosis caused by calcified valve. There is no aortic valve regurgitation. Tricuspid aortic valve. There is moderate thickening. There is moderate calcification. The peak gradient is 31 mmHg (peak velocity = 277.5 cm/s). The mean gradient is 19 mmHg. The LVOT mean velocity is 52.0 cm/s. The LVOT diameter is 2.0 cm. The aortic VTI is 62.0 cm. The mean velocity in the aortic valve is 104.0 cm/s. The dimensionless valve index is 0.28. AV area is 0.91 cm (0.54 cm /m ) by continuity, VTI. The LVOT stroke volume index is 34 ml/m . PULMONIC VALVE The pulmonic valve was not seen or not interrogated. There is trace pulmonic valve regurgitation. AORTA The visualized aorta is normal in size. Measurements - Sinus: 2.6 cm. Sinotubular junction 2.6 cm. Mid ascending aorta 3.3 cm. Mid arch 2.4 cm. Distal descending diaphragmatic level 1.9 cm. PULMONARY ARTERIES The pulmonary arteries are unseen or not interrogated. INTERATRIAL SEPTUM There is no evidence of intracardiac shunting as detected by Doppler. PERICARDIUM There is no pericardial effusion. There is an epicardial fat pad. CONCLUSIONS: - Technically difficult exam due to body habitus. - Exam indication: Abnormal Cardiac Biomarkers - The left ventricle is normal in size. There is mild upper septal left ventricular hypertrophy. Left ventricular systolic function is normal. EF = 57 5% (2D biplane) Definity contrast used for endocardial border detection. Left ventricular diastolic function was not evaluated due to >2+ MR. - The right ventricle is normal in (more content not included)... Normal [facility] CARDIAC PERF STRESS/PHARM on 06-12-2023 OR CARDIAC PERF STRESS/PHARM * * *Final Report* * * DATE OF EXAM: Jun 12 2023 12:26PM [facility] 0006 - OR CARDIAC PERF STRESS/PHARM / PROCEDURE REASON: Chest pain/anginal equiv, intermediate CAD risk, not treadmill candidate * * * * Physician Interpretation * * * * PATIENT: Name: MRS. LINDA PERALTA Age: 78 years Gender: F CONCLUSIONS: 1. SPECT Perfusion Study: Normal. 2. There is no scintigraphic evidence for inducible ischemia. 3. No evidence of scarred myocardium. 4. Left ventricle is normal in size. The left ventricle systolic function is normal. 5. Right ventricle is normal in size. The right ventricle systolic function is normal. 6. This is a low risk scan. Gated Stress FBP LVEF % 66 Prior Study Comparison No prior nuclear cardiology exam available for comparison. Nuclear Med Report:1-Day Gated SPECT Myocardial Perfusion with Regadenoson Stress: Myocardial perfusion imaging was performed at rest 30 minutes following the IV injection of the radiotracer. The patient received 0.4 mg of regadenoson, via rapid IV push, immediately followed by radiotracer IV. Gated post stress tomographic imaging was performed 30 to 60 minutes later. See administered radiotracer and doses below. [facility] Date of service: 06/12/2023 8:00:00 AM Ordering Physician: MERRILL BAIG. Requesting Physician: Indication: Elevated HS Troponin and CP - ECG uniterpretable OR unable to exercise Interpreting physician: Bobby Bosch MD Height: 158.00 cm BSA: 1.70 m? Weight: 66.00 kg BMI: 26.4 kg/m? Imaging Protocol Limitation Reason G.I. uptake. Exam Type: Rest Stress Radiopharm: Tc-99m Tetrofosmin Tc-99m Tetrofosmin Dosage(mCi): 13.3 35.6 Stress Agent: Regadenoson 0.4mg Supply provided from [facility] Resting Blood Press: 156/96 mmHg Image Quality The overall study imaging quality was deemed to be good. The following technical issues were noted: G.I. uptake. FINDINGS: Left Ventricle Wall Motion: Stress IR:3D - All segments are normal. Rest IR:3D - Gated Stress FBP - Reversibility - Stress IR:3D Stress IR:3D Gated Stress FBP LVEF: 66 % ED Volume: 65 ml ES Volume: 22 ml TID: 1.05 Perfusion Findings Stress IR:3D - Summed Score=0 All segments demonstrate normal perfusion. Rest IR:3D - Summed Score=0 All segments demonstrate normal perfusion. Stress IR:3D Rest IR:3D Summed Score=0 Summed Score=0 LEFT VENTRICLE The left ventricle is normal in size. Left ventricular systolic function is normal. Right Ventricle The right ventricle is normal in size. Right ventricle systolic function is normal. Stress Test Findings: There is no scintigraphic evidence for inducible ischemia. There is no evidence of scarring. Small size moderate intensity fixed defect at the apex with corresponding normal wall motion and thickening most likely consistent with attenuation artifact. * * * Final * * * -- Stress ECG Report: [facility] Date of service: 06/12/2023 8:00:00 AM Ordering physician: MERRILL BAIG civil engineering specialist: Krys John RN Assembler Motor Vehicle: Elana Galeana CEP Interpreting physician: Bobby Bosch MD Patient name: MRS. LINDA PERALTA Age: 78 years Gender: F Height: 158.00 cm BSA: 1.70 m? Weight: 66.00 kg BMI: 26.4 kg/m? Indication: Chest pressure / Chest tightness Stress ECG Conclusion: Conclusion: Normal Stress ECG Summary: The patient's resting heart rate was 67 bpm and blood pressure was 156/96 mmHg. The test was terminated due to end of protocol. Other symptoms during the test included SOB and dizziness. The maximum heart rate was 82 bpm, which is 59% of the predicted heart rate for age. Peak blood pressure was 158/100 mmHg. The double product achieved was 756[address]. NV History: +---------+ + Date Description +---------+ + 02/20/2009 Unknown +---------+ + 06/08/2023 Unknown +---------+ + Medications: Last Used midorine, pantaoprazole, zocor, cortef, prolia, coumadin Resting ECG: Normal Sinus Rhythm, Nonspecific St-T Wave Changes, Rare PVCs (<3/Min), Rare Couplets (<3/Min) and Rare PACs (<3/Min) Symptoms at rest: No symptoms Stress Exercise Table: +-----+---+---+---+ Stage HR SYS DARY +-----+---+---+---+ 1 82 158 100 +-----+---+---+---+ 2 100 105 68 +-----+---+---+---+ 3 99 105 69 +-----+---+---+---+ 4 91 +-----+---+---+---+ 5 90 127 79 +-----+---+---+---+ 6 97 +-----+---+---+---+ 7 88 +-----+---+---+---+ 8 89 126 78 +-----+---+---+---+ +-----+--+---+---+ Final 82 158 100 +-----+--+---+---+ +------+ ---+ +--- + -- (more content not included)... Normal [facility] PT panel Coag (PPP)on 2023 INR Coag (PPP) [Relative time] 1.5 {INR} High 0.9-1.3 [facility] Comment on above: Order Comment: Speci men Type: URINE SPECIMEN Ordering Facility: [facility] Address: [address] [place] [address], [place] [id number] Result Comment: Saray min K Antagonist (VKA) Therapeutic Range: INR 2 to 3 (Target INR of 2.5) Note: For patients treated with VKA drugs, such as warfarin, the [place] [employer] 2012 Guideline recommends a therapeutic INR range of 2 to 3 (target INR of 2.5). This recommendation includes high-risk patients with antiphospholipid syndrome with previous arterial or venous thromboembolism, current-generation mechanical or bioprosthetic aortic heart valve replacement. Note: Patients with mechanical aortic valve replacement and additional risk factors for thromboembolic events (atrial fibrillation, previous thromboembolism, LV dysfunction, hypercoagulable conditions) or an older generation mechanical AVR (i.e., ball in-Cage) or any mechanical MVR should have a INR therapeutic range of 2.5 to 3.5 (target INR of 3). Lindsey GH, et al. Chest 2012, 141:7S-47S Bandar RA, et al. JACC 2017, 70: 252-289 Performed By: #### U RMPA #### [facility] CLIA [id number] [address] [place] [address] [place] PT Coag (PPP) [Time] 15.4 s High 9.7-13.0 [facility] Comment on above: Order Comment: Speci men Type: URINE SPECIMEN Ordering Facility: [facility] Address: [address] [place] [address] Performed By: #### U RMPA #### [facility] CLIA [id number] [address] [place] [address] [place] Renal function 2000 panelon 06-12-2023 Albumin [Mass/Vol] 3.1 g/dL Low 3.9-4.9 [facility] Comment on above: Order Comment: Speci men Type: BLOOD SPECIMEN Ordering Facility: [facility] Address: [address] [place] [address] Performed By: #### 2 885-2 #### [facility] CLIA [id number] [address] [place] [address] [place] Anion gap [Moles/Vol] 10 mmol/L Normal 9-18 [facility] Comment on above: Order Comment: Speci men Type: BLOOD SPECIMEN Ordering Facility: [facility] Address: [address] [place] [address] Performed By: #### 2 885-2 #### [facility] CLIA [id number] [address] [place] [address] [place] Calcium [Mass/Vol] 10.7 mg/dL High 8.5-10.2 [facility] Comment on above: Order Comment: Speci men Type: BLOOD SPECIMEN Ordering Facility: [facility] Address: [address] [place] [address] Performed By: #### 2 885-2 #### [facility] CLIA [id number] [address] [place] [address] [place] Chloride [Moles/Vol] 109 mmol/L High 97-105 [facility] Comment on above: Order Comment: Speci men Type: BLOOD SPECIMEN Ordering Facility: [facility] Address: [address] [place] [address] Performed By: #### 2 885-2 #### [facility] CLIA [id number] [address] [place] [address] [place] CO2 [Moles/Vol] 24 mmol/L Normal 22-30 [facility] Comment on above: Order Comment: Speci men Type: BLOOD SPECIMEN Ordering Facility: [facility] Address: [address] [place] [address] Performed By: #### 2 885-2 #### [facility] CLIA [id number] [address] [place] [address] [place] Creatinine [Mass/Vol] 1.65 mg/dL High 0.58-0.96 [facility] Comment on above: Order Comment: Speci men Type: BLOOD SPECIMEN Ordering Facility: [facility] Address: [address] [place] [address] Performed By: #### 2 885-2 #### [facility] CLIA [id number] [address] [place] [address] [place] Creatinine and Glomerular filtration rate.predicted panel (S/P/Bld) 31 mL/min/1.73m??? Low >=60 [facility] Comment on above: Order Comment: Speci men Type: BLOOD SPECIMEN Ordering Facility: [facility] Address: [address] [place] [address] Result Comment: Marisabel mated Glomerular Filtration Rate (eGFR) is calculated using the 2020 CKD-EPI creatinine equation. This equation utilizes serum creatinine, sex, and age as parameters. The creatinine assay has traceable calibration to isotope dilution-mass spectrometry. Refer to KDIGO guidelines for clinical interpretation. In patients with unstable renal function, e.g. those with acute kidney injury, the eGFR may not accurately reflect actual GFR. Performed By: #### 2 885-2 #### [facility] CLIA [id number] [address] [place] [address] [place] Glucose [Mass/Vol] 132 mg/dL High 74-99 [facility] Comment on above: Order Comment: Speci men Type: BLOOD SPECIMEN Ordering Facility: [facility] Address: [address] [place] [address] Result Comment: The [place] [employer] (ADA) provides guidance for cutoff values for fasting glucose and random glucose. The ADA defines fasting as no caloric intake for at least 8 hours. Fasting plasma glucose results between 100 to 125 mg/dL indicate increased risk for diabetes (prediabetes). Fasting plasma glucose results greater than or equal to 126 mg/dL meet the criteria for diagnosis of diabetes. In the absence of unequivocal hyperglycemia, results should be confirmed by repeat testing. In a patient with classic symptoms of hyperglycemia or hyperglycemic crisis, random plasma glucose results greater than or equal to 200 mg/dL meet the criteria for diagnosis of diabetes. Reference: Standards of Medical Care in Diabetes 2016, [place] [employer]. Diabetes Care. 2016.39(Suppl 1). Performed By: #### 2 885-2 #### [facility] CLIA [id number] [address] [place] [address] [place] Phosphate [Mass/Vol] 3.6 mg/dL Normal 2.7-4.8 [facility] Comment on above: Order Comment: Speci men Type: BLOOD SPECIMEN Ordering Facility: [facility] Address: [address] [place] [address] Performed By: #### 2 885-2 #### [facility] CLIA [id number] [address] [place] [address] [place] Potassium [Moles/Vol] 4.0 mmol/L Normal 3.7-5.1 [facility] Comment on above: Order Comment: Speci men Type: BLOOD SPECIMEN Ordering Facility: [facility] Address: [address] [place], [place] [id number] Performed By: #### 2 885-2 #### [facility] CLIA [id number] [address] [place] [address] [place] Sodium [Moles/Vol] 143 mmol/L Normal 136-144 [facility] Comment on above: Order Comment: Speci men Type: BLOOD SPECIMEN Ordering Facility: [facility] Address: [address] [place] [address] Performed By: #### 2 885-2 #### [facility] CLIA [id number] [address] [place] [address] [place] Urea nitrogen [Mass/Vol] 54 mg/dL High 7-21 [facility] Comment on above: Order Comment: Speci men Type: BLOOD SPECIMEN Ordering Facility: [facility] Address: [address] [place] [address] Performed By: #### 2 885-2 #### [facility] CLIA [id number] [address] [place] [address] [place] aPTT PPPon 06-12-2023 aPTT Coag (PPP) [Time] 63.4 s High 23.0-32.4 [facility] Comment on above: Order Comment: Speci men Type: URINE SPECIMEN Ordering Facility: [facility] Address: [address] [place] [address] Performed By: #### U RMPA #### [facility] CLIA [id number] [address] [place] [address] [place] aPTT Coag (PPP) [Time] 65.2 s High 23.0-32.4 [facility] Comment on above: Order Comment: Speci men Type: BLOOD SPECIMENOrdering Facility: [facility] Address: [address] [place] [address] Performed By: #### 1 4979-9 ####[facility]ORY[facility]IA [id number] [place] [address] [place] Basic metabolic 2000 panelon 06-11-2023 Anion gap [Moles/Vol] 10 mmol/L Normal 9-18 [facility] Comment on above: Order Comment: Speci men Type: BLOOD SPECIMEN Ordering Facility: [facility] Address: [address] [place] [address] Performed By: #### 2 885-2 #### [facility] CLIA [id number] [address] [place] [id number] [place] Calcium [Mass/Vol] 11.1 mg/dL High 8.5-10.2 [facility] Comment on above: Order Comment: Speci men Type: BLOOD SPECIMEN Ordering Facility: [facility] Address: [address] [place] [id number] Performed By: #### 2 885-2 #### [facility] CLIA [id number] [address] [place] [address] [place] Chloride [Moles/Vol] 106 mmol/L High 97-105 [facility] Comment on above: Order Comment: Speci men Type: BLOOD SPECIMEN Ordering Facility: [facility] Address: [address] [place], [place] [id number] Performed By: #### 2 885-2 #### [facility] CLIA [id number] [address] [place] [address] [place] CO2 [Moles/Vol] 23 mmol/L Normal 22-30 [facility] Comment on above: Order Comment: Speci men Type: BLOOD SPECIMEN Ordering Facility: [facility] Address: [address] [place] [phone] Performed By: #### 2 885-2 #### [facility] CLIA [id number] [address] [place] [id number] [place] Creatinine [Mass/Vol] 1.73 mg/dL High 0.58-0.96 [facility] Comment on above: Order Comment: Speci men Type: BLOOD SPECIMEN Ordering Facility: [facility] Address: [address] [place] [phone] Performed By: #### 2 885-2 #### [facility] CLIA [id number] [address] [place] [address] [place] Creatinine and Glomerular filtration rate.predicted panel (S/P/Bld) 30 mL/min/1.73m??? Low >=60 [facility] Comment on above: Order Comment: Jody fairbanks Type: BLOOD SPECIMEN Ordering Facility: [facility] Address: [address] [place] [address] Result Comment: Marisabel mated Glomerular Filtration Rate (eGFR) is calculated using the 2020 CKD-EPI creatinine equation. This equation utilizes serum creatinine, sex, and age as parameters. The creatinine assay has traceable calibration to isotope dilution-mass spectrometry. Refer to KDIGO guidelines for clinical interpretation. In patients with unstable renal function, e.g. those with acute kidney injury, the eGFR may not accurately reflect actual GFR. Performed By: #### 2 885-2 #### [facility] CLIA [id number] [address] [place] [address] [place] Glucose [Mass/Vol] 150 mg/dL High 74-99 [facility] Comment on above: Order Comment: Jody fairbanks Type: BLOOD SPECIMEN Ordering Facility: [facility] Address: [address] [place] [address] Result Comment: The [place] Diabetes Association (ADA) provides guidance for cutoff values for fasting glucose and random glucose. The ADA defines fasting as no caloric intake for at least 8 hours. Fasting plasma glucose results between 100 to 125 mg/dL indicate increased risk for diabetes (prediabetes). Fasting plasma glucose results greater than or equal to 126 mg/dL meet the criteria for diagnosis of diabetes. In the absence of unequivocal hyperglycemia, results should be confirmed by repeat testing. In a patient with classic symptoms of hyperglycemia or hyperglycemic crisis, random plasma glucose results greater than or equal to 200 mg/dL meet the criteria for diagnosis of diabetes. Reference: Standards of Medical Care in Diabetes 2016, [place] [employer]. Diabetes Care. 2016.39(Suppl 1). Performed By: #### 2 885-2 #### [facility] CLIA [id number] [address] [id number] [address] [place] Potassium [Moles/Vol] 4.1 mmol/L Normal 3.7-5.1 [facility] Comment on above: Order Comment: Speci men Type: BLOOD SPECIMEN Ordering Facility: [facility] Address: [address] [place] [address] Performed By: #### 2 885-2 #### [facility] CLIA [id number] [address] [place] [address] [place] Sodium [Moles/Vol] 139 mmol/L Normal 136-144 [facility] Comment on above: Order Comment: Speci men Type: BLOOD SPECIMEN Ordering Facility: [facility] Address: [address] [place] [address] Performed By: #### 2 885-2 #### [facility] CLIA [id number] [address] [place] [address] [place] Urea nitrogen [Mass/Vol] 50 mg/dL High 7- [facility] Comment on above: Order Comment: Speci men Type: BLOOD SPECIMEN Ordering Facility: [facility] Address: [address] [place] [address] Performed By: #### 2 885-2 #### [facility] CLIA [id number] [address] [place] [address] [place] CBC panel Auto (Bld)on 06-10 Erythrocyte distribution width (RBC) [Ratio] 13.8 % Normal 11.5-15.0 [facility] Comment on above: Order Comment: Speci men Type: BLOOD SPECIMENOrdering Facility: [facility] Address: [address] [place] [address] Performed By: #### 5 8410-2 ####[facility]ORATORYCLIA [id number] [place] [address] [place] Hematocrit (Bld) [Volume fraction] 36.5 % Normal 36.0-46.0 [facility] Comment on above: Order Comment: Speci men Type: BLOOD SPECIMENOrdering Facility: [facility] Address: [address] [place] [address] Performed By: #### 5 8410-2 ####[facility]ATORYCLIA [id number] [address] [facility] Hemoglobin (Bld) [Mass/Vol] 12.5 g/dL Normal 11.5-15.5 [facility] Comment on above: Order Comment: Speci men Type: BLOOD SPECIMENOrdering Facility: [facility] Address: [address] [place] [address] Performed By: #### 5 8410-2 ####[facility]ORATORYCLIA [id number] [address] [facility] MCH (RBC) [Entitic mass] 29.6 pg Normal 26.0-34.0 [facility] Comment on above: Order Comment: Speci men Type: BLOOD SPECIMENOrdering Facility: [facility] Address: [address] [place] [address] Performed By: #### 5 8410-2 ####[facility]ORATORYCLIA [id number] [address] MCHC (RBC) [Mass/Vol] 34.2 g/dL Normal 30.5-36.0 [facility] Comment on above: Order Comment: Speci men Type: BLOOD SPECIMENOrdering Facility: [facility] Address: [address] [place] [address] Performed By: #### 5 8410-2 ####[facility]ORYCLIA [id number] [address] MCV (RBC) [Entitic vol] 86.3 fL Normal 80.0-100.0 [facility] Comment on above: Order Comment: Speci men Type: BLOOD SPECIMENOrdering Facility: [facility] Address: [address] [place] [address] Performed By: #### 5 8410-2 ####[facility]ATORYCLIA [id number] [address] Nucleated RBC (Bld) [#/Vol] 10*3/uL Normal <0.01 [facility] Comment on above: Order Comment: Speci men Type: BLOOD SPECIMENOrdering Facility: [facility] Address: [address] [place] [address] Performed By: #### 5 8410-2 ####[facility]ORATORYCLIA [id number] [place] [address] [place] Platelet mean volume (Bld) [Entitic vol] 10.9 fL Normal 9.0-12.7 [facility] Comment on above: Order Comment: Speci men Type: BLOOD SPECIMENOrdering Facility: [facility] Address: [address] [place] [address] Performed By: #### 5 8410-2 ####[facility]ATORYCLIA [id number] [address] [place] Platelets (Bld) [#/Vol] 316 10*3/uL Normal 150-400 [facility] Comment on above: Order Comment: Speci men Type: BLOOD SPECIMENOrdering Facility: [facility] Address: [address] [place] [address] Performed By: #### 5 8410-2 ####[facility]ORATORYCLIA [id number] [place] [address] [place] RBC (Bld) [#/Vol] 4.23 10*6/uL Normal 3.90-5.20 [facility] Comment on above: Order Comment: Speci men Type: BLOOD SPECIMENOrdering Facility: [facility] Address: [address] [place] [address] Performed By: #### 5 8410-2 ####[facility]ORATORYCLIA [id number] [place] [address] [place] WBC (Bld) [#/Vol] 10.34 10*3/uL Normal 3.70-11.00 [facility] Comment on above: Order Comment: Speci men Type: BLOOD SPECIMENOrdering Facility: [facility] Address: [address] [place] [address] Performed By: #### 5 8410-2 ####[facility] LABORATORYCLIA [id number] [place] [address] [place] CONSULT PROGon 06-11-2023 CONSULT PROG HNO ID: [id number] Author: CARIDAD MELGAR MD Service: Endocrinology Author Type: Physician Type: Consult Progress Note Filed: 06/12/2023 09:05 Note Text: ENDOCRINOLOGY CONSULT PROGRESS NOTE SERVICE DATE: 06/11/2023 SERVICE TIME: 8:50 AM Subjective INTERVAL HPI: patient seen and examined. States feels better overall. Legs stronger. When questioned more about her activity at home, she has been very mobile, getting up to take care of ADL's. Has not been bed-bound. Also not taking antacids or natural supplements. She does add that she forgot to mention she had taken Dupixent for eczema for the month of February Received Xgeva 120 mg yesterday Ca this AM 11.1 BIMAL level, thyroid studies normal yesterday 06/09. SPEP, UPEP, vitamin A still pending Latest Ref Rng 06/10/2023 06/11/2023 Calcium 8.5 - 10.2 mg/dL 10.5 (H) 11.1 (H) eGFR >=60 mL/min/1.73m? 30 (L) 30 (L) BIMAL <=52 U/L 32 TSH 0.270 - 4.200 mIU/L 0.518 Free T4 0.9 - 1.7 ng/dL 1.6 Free T3 2.3 - 4.1 pg/mL 1.8 (L) Stress test had to be postponed until tomorrow. Hydrocortisone weaned to 50 mg IV Q8H Previous history: Ms. 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 I interviewed and examined Ms. Peralta herself, spoke with her daughter Souleymane, and reviewed notes from previous endocrinologists Hypercalcemia originally noted at least 10 to 15 years ago, as there are labs in our system going back that far. No etiology has been found, the only lab abnormality has been a low normal PTH, and elevated 1,25 [place] vitamin D. BIMAL levels have been normal when tested, PTHrp has been repeatedly negative. She had had multiple whole body radiology assessments looking for malignancy and no etiology found (most recently 05/13 at [facility]). Normal lungs and no hilar adenopathy noted. Her daughter states that her outpatient hydrocortisone dose for moris's was reduced from 20 mg AM and 10 mg PM to 20 mg QM only about 6 months ago While admitted to 2 weeks ago, received hydration, calcitonin (made her very nauseous) and Zometa. Calcium was 12.6 on admission 05/24/23 and 8.6 on discharge 05/26/23 She was re-admitted 06/08/23 to [facility], calcium 13.7 on admission. She has received hydration only this admission for calcium, down to 11.6 06/08, 10.6 06/09 Usual outpatinet endocrinology follow-up: Torsten Edwar ([facility]) still follows peripherally with her Alexander Gregory ([place]) has seen her for the last 3 to 4 years Current Facility-Administered Medications Medication Dose Route Frequency midodrine 2.5 mg tab(s) (PROAMATINE) 2.5 mg ORAL TID (q 4 H) simvastatin 20 mg tab(s) (ZOCOR) 20 mg ORAL AT BEDTIME NaCl 0.9% iv flush bag 20 mL INTRAVENOUS PRN cefTRIAXone iv piggyback 1 g in dextrose (iso-osmotic) 50 mL (ROCEPHIN) 1 g INTRAVENOUS q 24 H heparin iv infusion 25,000 units in NaCl 0.45% 250 mL LOW DOSE/ACS NOMOGRAM 0-3,000 Units/hr INTRAVENOUS CONTINUOUS And heparin RATE CHANGE bolus 1,000-4,000 Units for subtherapeutic PTTAC results 1,000-4,000 Units INTRAVENOUS PRN ondansetron (PF) 4 mg injection (ZOFRAN) 4 mg INTRAVENOUS q 6 H PRN acetaminophen 650 mg tab(s) (TYLENOL) 650 mg ORAL q 4 H PRN polyethylene glycol 3350 17 g packet 17 g ORAL DAILY PRN sodium chloride 0.9 % (flush) 2-10 mL (BD POSIFLUSH) 2-10 mL INTRAVENOUS DIRECTED PRN And perflutren lipid microspheres 1.1 mg/mL 1.3 mL injection (DEFINITY) 1.3 mL INTRAVENOUS DIRECTED PRN pantoprazole DR 40 mg tab(s) (PROTONIX) 40 mg ORAL DAILY (6 AM) hydrocortisone sodium succinate (PF) 50 mg injection (Solu-CORTEF) 50 mg INTRAVENOUS q 8 H Objective PHYSICAL EXAM: GENERAL: Alert, no distress, cooperative LUNGS: Lungs clear to auscultation, Good diaphragmatic excursion CARDIAC: Normal S1 and S2; no rubs, murmurs, or gallops ABDOMEN: Abdomen soft, non-tender, BS normal, No masses or organomegaly BP 124/70 Pulse 72 Temp (Src) 96.8 (Temporal) Resp 16 Ht 5' 2 (1.58m) Wt 144 lb 13.5 oz (65.7kg) SpO2 99% BMI 26.49 kg/(m2). O2 Therapy: Room Air Assesment: Impression: (Some elements may be copied from previous notes, which have been updated where appropriate, and all reflect current medical decision making from today June 11, 2023.) 1. hypercalcemia of unknown etiology - recurrent hypercalcemia with recent inpatient treatment at with saline, calcitonin (did not tolerate well), and Zometa - readmission to [facility] 06/08/23 for same (recurrent hypercalcemia) - high 1,25 [place] vitamin D would suggest granulomatous disease, however recent CT of the chest showed no lung abnormalities of hilar adenopathy that would usually be seen in sarcoidosis. In years past BIMAL level has been normal - BIMAL and thyroid studies 06/09 normal. SPEP, UPEP, vitamin A levels pending 2. History of Moris's disease, recent hospitalization 05/22 to 05/25 for adrenal insufficiency - currently receiv (more content not included)... Normal [facility] NURSING PROGon 06-11-2023 NURSING PROG HNO ID: [id number] Author: BERNARDINO ZAMORA, ROSS Service: Nursing Author Type: Registered Nurse Type: Nursing Progress Note Filed: 06/11/2023 10:39 Note Text: NM stress test postponed until Monday, 06-11. Pt will need to refrain from caffeine, decaf and chocolate after 9 pm tonight. Pt will need to be NPO for the test. Normal [facility] aPTT PPPon 06-11-2023 aPTT Coag (PPP) [Time] 52.5 s High 23.0-32.4 [facility] Comment on above: Order Comment: Speci men Type: BLOOD SPECIMEN Ordering Facility: [facility] Address: [address] [place] [address] Performed By: #### 2 885-2 #### [facility] CLIA [id number] [address] [place] [address] [place] aPTT Coag (PPP) [Time] 47.6 s High 23.0-32.4 [facility] Comment on above: Order Comment: Speci men Type: BLOOD SPECIMEN Ordering Facility: [facility] Address: [address] [place] [address] Performed By: #### L [id number] #### [facility] CLIA [id number] [address] [place] [address] aPTT Coag (PPP) [Time] 44.5 s High 23.0-32.4 [facility] Comment on above: Order Comment: Speci men Type: BLOOD SPECIMENOrdering Facility: [facility] Address: [address] [place] [address] Performed By: #### 1 4979-9 ####[facility] [id number] [place], [place] [address] [place] [address] [place] BIMAL SerPl-cCncon 06-10-2023 Angiotensin converting enzyme [Catalytic activity/Vol] 32 U/L Normal <=52 [facility] Comment on above: Order Comment: Speci men Type: BLOOD SPECIMEN Ordering Facility: [facility] Address: [address] [place] [address] Result Comment: Aga ficially low BIMAL levels may be found for patients taking BIMAL inhibitors or after the administration of gadolinium. This test was developed and its performance characteristics determined by [facility]'s Javier JAlaina [facility] ([facility]). It has not been cleared or approved by the FDA. [facility] is regulated under CLIA as qualified to perform high-complexity testing. This test is used for clinical purposes. It should not be regarded as investigational or for research. Performed By: #### 2 885-2 #### [facility] CLIA [id number] [address] [place] [address] [place] [address] [place] Basic metabolic 2000 panelon 06-10-2023 Anion gap [Moles/Vol] 11 mmol/L Normal 9-18 [facility] Comment on above: Order Comment: Speci men Type: BLOOD SPECIMEN Ordering Facility: [facility] Address: [address] [place] [address] Performed By: #### 3 4528-0, 22475-8 #### [facility] CLIA [id number] [address] [place] [address] [place] Calcium [Mass/Vol] 10.5 mg/dL High 8.5-10.2 [facility] Comment on above: Order Comment: Speci men Type: BLOOD SPECIMEN Ordering Facility: [facility] Address: [address] [place] [address] Performed By: #### 3 4528-0, 49817-1 #### [facility] CLIA [id number] [address] STATES [place] Chloride [Moles/Vol] 107 mmol/L High 97-105 [facility] Comment on above: Order Comment: Speci men Type: BLOOD SPECIMEN Ordering Facility: [facility] Address: [address] [place] [address] Performed By: #### 3 4528-0, 12376-3 #### [facility] CLIA [id number] [address] [place] [address] [place] CO2 [Moles/Vol] 20 mmol/L Low 22-30 [facility] Comment on above: Order Comment: Speci men Type: BLOOD SPECIMEN Ordering Facility: [facility] Address: [address] [place] [address] Performed By: #### 3 4528-0, 62011-7 #### [facility] CLIA [id number] [address] [place] [address] [place] Creatinine [Mass/Vol] 1.73 mg/dL High 0.58-0.96 [facility] Comment on above: Order Comment: Speci men Type: BLOOD SPECIMEN Ordering Facility: [facility] Address: [address] [place] [address] Performed By: #### 3 4528-0, 73763-0 #### [facility] CLIA [id number] [address] Creatinine and Glomerular filtration rate.predicted panel (S/P/Bld) 30 mL/min/1.73m??? Low >=60 [facility] Comment on above: Order Comment: Jody fairbanks Type: BLOOD SPECIMEN Ordering Facility: [facility] Address: [address] [place] [address] Result Comment: Marisabel mated Glomerular Filtration Rate (eGFR) is calculated using the 2020 CKD-EPI creatinine equation. This equation utilizes serum creatinine, sex, and age as parameters. The creatinine assay has traceable calibration to isotope dilution-mass spectrometry. Refer to KDIGO guidelines for clinical interpretation. In patients with unstable renal function, e.g. those with acute kidney injury, the eGFR may not accurately reflect actual GFR. Performed By: #### 3 4528-0, 20880-8 #### [facility] CLIA [id number] [address] [place] [address] [place] Glucose [Mass/Vol] 87 mg/dL Normal 74-99 [facility] Comment on above: Order Comment: Jody fairbanks Type: BLOOD SPECIMEN Ordering Facility: [facility] Address: [address] [place] [address] Result Comment: The [place] Diabetes Association (ADA) provides guidance for cutoff values for fasting glucose and random glucose. The ADA defines fasting as no caloric intake for at least 8 hours. Fasting plasma glucose results between 100 to 125 mg/dL indicate increased risk for diabetes (prediabetes). Fasting plasma glucose results greater than or equal to 126 mg/dL meet the criteria for diagnosis of diabetes. In the absence of unequivocal hyperglycemia, results should be confirmed by repeat testing. In a patient with classic symptoms of hyperglycemia or hyperglycemic crisis, random plasma glucose results greater than or equal to 200 mg/dL meet the criteria for diagnosis of diabetes. Reference: Standards of Medical Care in Diabetes 2016, [place] Diabetes Association. Diabetes Care. 2016.39(Suppl 1). Performed By: #### 3 4528-0, 85828-0 #### [facility] CLIA [id number] [address] [place] Potassium [Moles/Vol] 4.1 mmol/L Normal 3.7-5.1 [facility] Comment on above: Order Comment: Speci men Type: BLOOD SPECIMEN Ordering Facility: [facility] Address: [address] [place] [address] Performed By: #### 3 4528-0, 22251-9 #### [facility] CLIA [id number] [address] [place] Sodium [Moles/Vol] 138 mmol/L Normal 136-144 [facility] Comment on above: Order Comment: Speci men Type: BLOOD SPECIMEN Ordering Facility: [facility] Address: [address] [place] [address] Performed By: #### 3 4528-0, 19651-8 #### [facility] CLIA [id number] [address] STATES OF [facility] Urea nitrogen [Mass/Vol] 40 mg/dL High 7-21 [facility] Comment on above: Order Comment: Speci men Type: BLOOD SPECIMEN Ordering Facility: [facility] Address: [address] [place] [address] Performed By: #### 3 4528-0, 58424-7 #### [facility] CLIA [id number] [address] STATES OF [facility] CBC panel Auto (Bld)on 06-09 Erythrocyte distribution width (RBC) [Ratio] 14.3 % Normal 11.5-15.0 [facility] Comment on above: Order Comment: Speci men Type: BLOOD SPECIMEN Ordering Facility: [facility] Address: [address] [place] [address] Performed By: #### 3 4528-0, 01585-1 #### [facility] CLIA [id number] [address] OF [place] Hematocrit (Bld) [Volume fraction] 37.0 % Normal 36.0-46.0 [facility] Comment on above: Order Comment: Speci men Type: BLOOD SPECIMEN Ordering Facility: [facility] Address: [address] [place] [address] Performed By: #### 3 4528-0, 63009-4 #### [facility] CLIA [id number] [address] Hemoglobin (Bld) [Mass/Vol] 11.6 g/dL Normal 11.5-15.5 [facility] Comment on above: Order Comment: Speci men Type: BLOOD SPECIMEN Ordering Facility: [facility] Address: [address] [place] [address] Performed By: #### 3 4528-0, 47456-7 #### [facility] CLIA [id number] [address] STATES OF [facility] MCH (RBC) [Entitic mass] 29.2 pg Normal 26.0-34.0 [facility] Comment on above: Order Comment: Speci men Type: BLOOD SPECIMEN Ordering Facility: [facility] Address: [address] [place] [address] Performed By: #### 3 4528-0, 74694-2 #### [facility] CLIA [id number] [address] MCHC (RBC) [Mass/Vol] 31.4 g/dL Normal 30.5-36.0 [facility] Comment on above: Order Comment: Speci men Type: BLOOD SPECIMEN Ordering Facility: [facility] Address: [address] [place] [address] Performed By: #### 3 4528-0, 25704-9 #### [facility] CLIA [id number] [address] MCV (RBC) [Entitic vol] 93.2 fL Normal 80.0-100.0 [facility] Comment on above: Order Comment: Speci men Type: BLOOD SPECIMEN Ordering Facility: [facility] Address: [address] [place] [address] Performed By: #### 3 4528-0, 14693-8 #### [facility] CLIA [id number] [address] [place] Nucleated RBC (Bld) [#/Vol] 10*3/uL Normal <0.01 [facility] Comment on above: Order Comment: Speci men Type: BLOOD SPECIMEN Ordering Facility: [facility] Address: [address] [place] [address] Performed By: #### 3 4528-0, 98547-1 #### [facility] CLIA [id number] [address] [place] Platelet mean volume (Bld) [Entitic vol] 10.8 fL Normal 9.0-12.7 [facility] Comment on above: Order Comment: Speci men Type: BLOOD SPECIMEN Ordering Facility: [facility] Address: [address] [place] [address] Performed By: #### 3 4528-0, 32987-0 #### [facility] CLIA [id number] [address] OF [place] Platelets (Bld) [#/Vol] 220 10*3/uL Normal 150-400 [facility] Comment on above: Order Comment: Speci men Type: BLOOD SPECIMEN Ordering Facility: [facility] Address: [address] [place] [address] Performed By: #### 3 4528-0, 93908-1 #### [facility] CLIA [id number] [address] [place] RBC (Bld) [#/Vol] 3.97 10*6/uL Normal 3.90-5.20 [facility] Comment on above: Order Comment: Speci men Type: BLOOD SPECIMEN Ordering Facility: [facility] Address: [address] [place] [address] Performed By: #### 3 4528-0, 84785-4 #### [facility] CLIA [id number] [address] [place] WBC (Bld) [#/Vol] 10.76 10*3/uL Normal 3.70-11.00 [facility] Comment on above: Order Comment: Speci men Type: BLOOD SPECIMEN Ordering Facility: [facility] Address: [address], [place] [address] Performed By: #### 3 4528-0, 29536-5 #### [facility] CLIA [id number] [address] OF [facility] CONSULTon 06-10-2023 CONSULT HNO ID: [id number] Author: CARIDAD MELGAR MD Service: Endocrinology Author Type: Physician Type: Consults Filed: 06/10/2023 14:21 Note Text: INITIAL CONSULT ENDOCRINOLOGY SERVICE DATE: 06/10/2023 SERVICE TIME: 12:44 PM Requesting Provider: Eugenie Langston DO Opinion/Advice Regarding: Management of hypercalcemia Service: Endocrinology Consult Service Subjective HPI: Ms. 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 I interviewed and examined Ms. Peralta herself, spoke with her daughter Souleymane, and reviewed notes from previous endocrinologists Hypercalcemia originally noted at least 10 to 15 years ago, as there are labs in our system going back that far. No etiology has been found, the only lab abnormality has been a low normal PTH, and elevated 1,25 [place] vitamin D. BIMAL levels have been normal when tested, PTHrp has been repeatedly negative. She had had multiple whole body radiology assessments looking for malignancy and no etiology found (most recently 05/13 at [place]). Normal lungs and no hilar adenopathy noted. Her daughter states that her outpatient hydrocortisone dose for moris's was reduced from 20 mg AM and 10 mg PM to 20 mg QM only about 6 months ago While admitted to 2 weeks ago, received hydration, calcitonin (made her very nauseous) and Zometa. Calcium was 12.6 on admission 05/24/23 and 8.6 on discharge 05/26/23 She was re-admitted 06/08/23 to [facility], calcium 13.7 on admission. She has received hydration only this admission for calcium, down to 11.6 06/08, 10.6 06/09 Usual outpatinet endocrinology follow-up: Torsten Vann ([facility] [place] [facility]) still follows peripherally with her Vinell Cooney) has seen her for the last 3 to 4 years PAST MEDICAL HISTORY Diagnosis Date Age-related osteoporosis with current pathological fracture with routine healing 01/19/2023 Anemia 08/26/2009 ASHD (arteriosclerotic heart disease) 04/25/2009 Asthma Benign neoplasm of colon 04/26/2005 Tubular adenoma Chronic diarrhea 03/15/2010 Chronic sphenoidal sinusitis 09/15/2003 Closed fracture of bone of right foot 11/08/2022 Collagenous colitis 03/30/2010 Contact dermatitis and other eczema, due to unspecified cause 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Moris's disease Cystocele, midline 07/23/2007 Diverticulosis of colon (without mention of hemorrhage) DVT (deep venous thrombosis) ([facility]) 03/23/2012 DVT of lower extremity (deep venous thrombosis) ([facility]) 03/27/2009 Esophageal reflux Gallstones 03/06/2016 Hypercalcemia 03/19/2009 Hypertension NSTEMI (non-ST elevated myocardial infarction) ([facility]) 04/27/2009 Cardiac cath normal Other adrenal hypofunction [...] W/COLLJ SPEC WHEN PFRMD 03/26/2010 Inpatient at [facility] ESOPHAGOGASTRODUODENOSCO PY TRANSORAL DIAGNOSTIC 02/2002 EGD ESOPHAGOGASTRODUODENOSCO PY TRANSORAL DIAGNOSTIC 05/01/2009 EGD ESOPHAGOGASTRODUODENOSCO PY TRANSORAL DIAGNOSTIC 11/18/2009 EGD, EXC CYST/ABERRANT BREAST [...] Age of Onset Coronary Artery Disease Mother [place] at 87y.o. Hypertension Mother Stroke Father Coronary Artery Disease Father sudden at 85y.o. Hypertension Sister COPD Sister Clotting Disorder Sister pulmonary embolism Kidney Disease Brother dec.sepsis, kidney transplant. Hypertension Brother DVT Daughter Breast Cancer Daughter Coronary Artery Disease Brother 65 Social History Tobacco Use Smoking status: Never Smokeless tobacco: Never Vaping Use Vaping Use: (more content not included)... Normal [facility] CONSULT HNO ID: [id number] Author: MERRILL BAIG MD Service: Clinical Cardiology Author Type: Physician Type: Consults Filed: 06/10/2023 11:03 Note Text: Cardiology Consult Note HPI: Ms. Peralta is a 78 year old female with h/o [place] (2009, peak trop 2, C normal coronary/mild luminal irregularities, possible small coronary thrombus in the setting of hypercoagulable state in pt with recurretn spontaneous DVT), HLD, HTN, GERD, recurrent DVT on coumadin, moris disease, asthma and anemia Patient was just recently discharged from the hospital for moris crisis. He felt mild chest pressure 3 out of 10 at rest on morning. No diaphoresis, shortness of breath or nausea. No radiation. He was brought to ER and had high-sensitivity troponin checked which showed elevated around 1000, subsequent level downtrending to 900. She did not have any more chest pain since then only 2 episodes of dry heaves, last episode was evening. Her high-sensitivity troponin continued to be checked and start uptrending again from 910, 1049, 1276, 1069. 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 Currently chest pain-free, no shortness of breath, no palpitation. EKG did not show any significant ischemic changes patient does have nonspecific T wave abnormality diffusely which was previously present on previous EKG in 2018. Previous cardiac testing: Previous pertinent labs: Cholesterol, Total (mg/dL) Date Value 01/18/2023 141 01/06/2022 182 06/09/2020 150 03/07/2019 187 03/03/2018 165 12/27/2016 139 HDL Cholesterol (mg/dL) Date Value 01/18/2023 63 01/06/2022 73 06/09/2020 65 03/07/2019 52 03/03/2018 68 12/27/2016 70 LDL Cholesterol (mg/dL) Date Value 01/18/2023 62 01/06/2022 81 06/09/2020 65 03/07/2019 113 03/03/2018 65 12/27/2016 59 Triglyceride (mg/dL) Date Value 01/18/2023 80 01/06/2022 140 06/09/2020 102 03/07/2019 109 03/03/2018 160 12/27/2016 51 NT Pro BNP (pg/mL) Date Value 06/08/2023 4,902 NIURKA High Sensitivity (ng/L) Date Value 06/10/2023 1,069 06/09/2023 1,276 06/09/2023 1,049 06/08/2023 910 Hemoglobin A1C (%) Date Value 03/07/2019 5.3 02/24/2018 5.7 02/27/2017 5.8 04/25/2009 5.8 Most recent labs: Recent Labs 06/10/23 0506 06/09/23 0727 06/09/23 0107 06/08/23 1407 WBC 10.76 < > 14.74* 13.53* RBC 3.97 < > 4.67 4.74 HB 11.6 < > 13.6 13.8 HCT 37.0 < > 41.6 42.7 MCV 93.2 < > 89.1 90.1 MCH 29.2 < > 29.1 29.1 MCHC 31.4 < > 32.7 32.3 RDWCV 14.3 < > 14.6 14.3 PLT 220 < > 309 317 MPV 10.8 < > 11.1 10.8 NEUTP -- -- -- 76.7 LYMPHP -- -- -- 10.9 MONOP -- -- -- 5.9 EODINP -- -- -- 4.8 BASOP -- -- -- 0.4 ABSNEUT -- -- -- 10.38* ABSMONO -- -- -- 0.80 ABSEOSIN -- -- -- 0.65* ABSBASO -- -- -- 0.05 GLUC 87 < > -- 100* BUN 40* < > -- 44* CREAT 1.73* < > -- 1.97* NA 138 < > -- 140 K 4.1 < > -- 4.3 CHLOR 107* < > -- 103 CO2 20* < > -- 24 TPROT -- -- -- 5.7* ALB -- -- -- 3.2* CA 10.5* < > -- 13.7* ALKPHOS -- -- -- 61 TBILI -- -- -- 0.6 AST -- -- -- 72* ALT -- -- -- 72* PTSEC -- -- 29.7* 28.2* APTT 36.2* < > 48.7* 37.9* INR -- -- 3.1* 2.9* MG -- -- -- 2.0 < > = values in this interval not displayed. PMH PAST MEDICAL HISTORY Diagnosis Date Age-related osteoporosis with current pathological fracture with routine healing 01/19/2023 Anemia 08/26/2009 ASHD (arteriosclerotic heart disease) 04/25/2009 Asthma Benign neoplasm of colon 04/26/2005 Tubular adenoma Chronic diarrhea 03/15/2010 Chronic sphenoidal sinusitis 09/15/2003 Closed fracture of bone of right foot 11/08/2022 Collagenous colitis 03/30/2010 Contact dermatitis and other eczema, due to unspecified cause 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[place]'s disease Cystocele, midline 07/23/2007 Diverticulosis of colon (without mention of hemorrhage) DVT (deep venous thrombosis) ([facility]) 03/23/2012 DVT of lower extremity (deep venous thrombosis) ([facility]) 03/27/2009 Esophageal reflux Gallstones 03/06/2016 Hypercalcemia 03/19/2009 Hypertension NSTEMI (non-ST elevated myocardial infarction) ([facility]) 04/27/2009 Cardiac cath normal Other adrenal hypofunction [...] WHEN PFRMD 05/11/2009 Colonoscopy COLONOSCOPY FLX DX (more content not included)... Normal [facility] FREE LIGHT CHAINS, QUANTITAT NGUYEN DOLANon 06-10-2023 FREE URINARY KAPPA EXCRETION/DAY See Note Normal [facility] Comment on above: Order Comment: Speci men Type: BLOOD SPECIMEN Order[facility] Facility[facility] Address: [address] [place] [address] Result Comment: Unable to quantitate free light chain excretion per day on a random urine sample. Performed By: #### L [id number] #### [facility] CLIA [id number] [address] STATES OF [facility] FREE URINARY KAPPA LIGHT CHAINS 191.17 mg/L High 0.00-32.90 [facility] Comment on above: Order Comment: Speci men Type: BLOOD SPECIMEN Ordering Facility: [facility] Address: [address] [place] [address] Result Comment: INTE RPRETIVE INFORMATION: Free Urinary [place] Light Chains Undetected antigen excess is a rare event but cannot be excluded. Free light chain results should always be interpreted in conjunction with other clinical and laboratory findings. Performed By: #### L [id number] #### [facility] CLIA [id number] [address] OF [facility] FREE URINARY LAMBDA EXCRETION/DAY See Note Normal [facility] Comment on above: Order Comment: Speci men Type: BLOOD SPECIMEN Order[facility] Facility[facility] Address: [address] [place] [address] Result Comment: Unable to quantitate free light chain excretion per day on a random urine sample. INTERPRETIVE INFORMATION: Free Light Chains, Quantitative, Urine Results of urine free light chain testing can be used to monitor disease progression or response to therapy in patients for whom urine electrophoresis is unable to provide reliable Bence Pedraza Protein quantification. The results of urine kappa and lambda free light chains must be interpreted in conjunction with urine immunofixation. The free light chain quantitative values may be misleading in specimens with high levels of urinary polyclonal free light chains, and absent Bence Pedraza protein by immunofixation; therefore correlation with urine immunofixation is required to identify inconsistent results. Performed By: [facility] [address] [place] [address] Blood Bank Order Control Clerk: Jefferson Kerr MD, PhD CLIA Number: [id number] Performed By: #### L [id number] #### [facility] CLIA [id number] [address] [place] [address] [place] FREE URINARY LAMBDA LIGHT CHAIN 27.42 mg/L High 0.00-3.79 [facility] Comment on above: Order Comment: Speci men Type: BLOOD SPECIMEN Order[facility] Facility: [facility] Address: [address] [place] [address] Result Comment: INTE RPRETIVE INFORMATION: Free Urinary Lambda Light Chain Undetected antigen excess is a rare event but cannot be excluded. Free light chain results should always be interpreted in conjunction with other clinical and laboratory findings. Performed By: #### L [id number] #### [facility] CLIA [id number] [address] [place] [address] [place] HOURS COLLECTED RANDOM Normal [facility] Comment on above: Order Comment: Speci men Type: BLOOD SPECIMEN Order[facility] Facility: [facility] Address: [address] [place] [address] Performed By: #### L [id number] #### [facility] CLIA [id number] [address] [place] [address] [place] TOTAL PROTEIN See Note Normal <=150 [facility] Comment on above: Order Comment: Speci men Type: BLOOD SPECIMEN [facility] Facility: [facility] Address: [address] [place] [address] Result Comment: Total Protein = 234.59 mg/L based on random urine. Reference intervals not applicable for random urines. INTERPRETIVE INFORMATION: Total Protein Total urinary protein is determined turbidimetrically by adding the albumin and kappa and/or lambda light chains. This value may not agree with the total protein as determined by chemical methods, which characteristically underestimate urinary light chains. Performed By: #### L [id number] #### [facility] CLIA [id number] [address] [place] [address] [facility] TOTAL VOLUME RANDOM Normal [facility] Comment on above: Order Comment: Speci men Type: BLOOD SPECIMEN Ordering Facility: [facility] Address: [address] [place] [address] [place] [address] Performed By: #### L [id number] #### [facility] CLIA [id number] [address] [place] [id number] [facility] HIGH SENSITIVITY TROPONIN To n 06-10-2023 Troponin T.cardiac High sensitivity method [Mass/Vol] 1069 ng/L High <12 [facility] Comment on above: Order Comment: Speci men Type: BLOOD SPECIMEN Ordering Facility: [facility] Address: [address] [place] [address] Result Comment: When assessing risk for acute coronary syndromes: In patients undergoing blood draw greater than or equal to 2 hours from symptom onset, with history of very low to moderate risk and non-ischemic ECG, an initial hs-Troponin T less than 12 ng/L AND a 1 hour delta hs-Troponin T less than 3 ng/L should be considered very low risk for 30 day MACE. Performed By: #### 3 4528-0, 22241-2 #### [facility] CLIA [id number] [address] OF [facility] HISTORY PHYSICALon HISTORY PHYSICAL HNO ID: [id number] Author: BERNARDINO ZAMORA RN Service: Nursing Author Type: Registered Nurse Type: H&P Filed: 06/10/2023 11:29 Note Text: Scheduled for a NM stress test Saturday 06/10 at 9:30 am. No caffeine, decaf, or chocolate after 21:30 tonight. Normal [facility] KAPPA/REID,FREE,SERon 2023 Immunoglobulin light chains.kappa.free (S) [Mass/Vol] 40.8 mg/L High 3.3-19.4 [facility] Comment on above: Order Comment: Jody tiki Type: BLOOD SPECIMENOrdering Facility: [facility] Address: [address] [place] [address] Result Comment: Rare ly, increased serum free light chains levels may not be detected or accurately quantified due to prozone phenomenon or in high viscosity samples using this immunoturbidimetric assay. Correlation with other laboratory results and clinical findings is recommended. The [place] Free Light Chain was performed using the Binding Site Optilite immunoturbidimetric method. Result obtained with different assay methods or kits cannot be used interchangeably. Performed By: #### K LFRS ####[facility] [id number] [place] [address] [place] Immunoglobulin light chains.kappa/Immunoglo bulin light chains.lambda (S) [Mass ratio] 1.41 Normal 0.26-1.65 [facility] Comment on above: Order Comment: Mistymamie fairbanks Type: BLOOD SPECIMENOrdering Facility: [facility] Address: [address] [place] [address] Performed By: #### K LFRS ####[facility] [id number] [place] [address] [place] Immunoglobulin light chains.lambda.free [Mass/Vol] 28.9 mg/L High 5.7-26.3 [facility] Comment on above: Order Comment: Speci tiki Type: BLOOD SPECIMENOrdering Facility: [facility] Address: [address] [place] [address] Result Comment: Rare ly, increased serum free light chains levels may not be detected or accurately quantified due to prozone phenomenon or in high viscosity samples using this immunoturbidimetric assay. Correlation with other laboratory results and clinical findings is recommended. The L[place] Free Light Chain was performed using the Binding Site Optilite immunoturbidimetric method. Result obtained with different assay methods or kits cannot be used interchangeably. Performed By: #### K LFRS ####[facility] [id number] [address] [place] MONOCLONAL PROT UR W/INTERPo n 06-10-2023 STAFF REVIEW ([facility]) Reviewed by Ritesh Sommer MD, Ph.D ([id number]) Normal [facility] Comment on above: Order Comment: Speci men Type: URINE SPECIMEN Ordering Facility: [facility] Address: [address] [place] [address] Performed By: #### U RMPA #### [facility] CLIA [id number] [address] [place] [address] UMPA RESULT No M protein is identified. Normal No M protein is identified. [facility] Comment on above: Order Comment: Speci men Type: URINE SPECIMEN Ordering Facility: [facility] Address: [address] [place] [address] Performed By: #### U RMPA #### [facility] CLIA [id number] [address] [place] [address] OF [place] NURSING PROGon 06-10-2023 NURSING PROG HNO ID: [id number] Author: BERNARDINO ZAMORA RN Service: Nursing Author Type: Registered Nurse Type: Nursing Progress Note Filed: 06/10/2023 11:09 Note Text: A copy of the 2D doppler from [facility] was placed in the chart per the Pt's request. Normal [facility] PROTEIN ELECTROPHORESIS SERU M (P)on 06-10-2023 Albumin [Mass/Vol] 2.27 g/dL Low 3.43-5.41 [facility] Comment on above: Order Comment: Speci men Type: BLOOD SPECIMEN Ordering Facility: [facility] Address: [address] [place] [address] Performed By: #### 2 885-2 #### [facility] CLIA [id number] [address] [place] Alpha 1 globulin Elph [Mass/Vol] 0.38 g/dL Normal 0.18-0.43 [facility] Comment on above: Order Comment: Speci men Type: BLOOD SPECIMEN Ordering Facility: [facility] Address: [address] [place] [address] Performed By: #### 2 885-2 #### [facility] CLIA [id number] [address] [place] [address] [place] Alpha 2 globulin Elph [Mass/Vol] 0.66 g/dL Normal 0.42-0.98 [facility] Comment on above: Order Comment: Speci men Type: BLOOD SPECIMEN Ordering Facility: [facility] Address: [address] [place] [address] Performed By: #### 2 885-2 #### [facility] CLIA [id number] [address] [place] [address] [place] Beta globulin Elph [Mass/Vol] 0.43 g/dL Low 0.61-1.17 [facility] Comment on above: Order Comment: Speci men Type: BLOOD SPECIMEN Ordering Facility: [facility] Address: [address] [place] [address] Performed By: #### 2 885-2 #### [facility] CLIA [id number] [address] [place] [address] [place] Gamma globulin Elph [Mass/Vol] 0.46 g/dL Low 0.53-1.51 [facility] Comment on above: Order Comment: Speci men Type: BLOOD SPECIMEN Ordering Facility: [facility] Address: [address] [place] [address] Performed By: #### 2 885-2 #### [facility] CLIA [id number] [address] [place] [address] [place] INTERPRETATION COMMENT FOR PROTEIN ELECTROPHORESIS Hypogammaglobulinemia is present, which can be seen in the setting of monoclonal gammopathy. If clinically indicated, monoclonal protein analysis and serum free light chain analysis are suggested to evaluate further for monoclonal gammopathy. Normal [facility] Comment on above: Order Comment: Speci men Type: BLOOD SPECIMEN Ordering [facility]: [facility] Address: [address] [place] [address] Performed By: #### 2 885-2 #### [facility] CLIA [id number] [address] [place] [address] [place] M-PROTEIN LOCATION Normal [facility] Comment on above: Order Comment: Speci men Type: BLOOD SPECIMEN Ordering [facility]: [facility] Address: [address] [place] [address] Result Comment: Not Applicable. Performed By: #### 2 885-2 #### [facility] CLIA [id number] [address] [place] [address] [place] Protein Fractions [Interp] No definitive M protein is identified on protein electrophoresis. Normal No definitive M protein is identified on protein electrophore sis. [facility] Comment on above: Order Comment: Speci men Type: BLOOD SPECIMEN Ordering Facility: [facility] Address: [address] [place] [address] Performed By: #### 2 885-2 #### [facility] CLIA [id number] [address] [place] [address] [place] Protein.monoclonal Elph [Mass/Vol] 0.00 g/dL Normal <=0.00 [facility] Comment on above: Order Comment: Speci men Type: BLOOD SPECIMEN Ordering Facility: [facility] Address: [address] [place] [address] Performed By: #### 2 885-2 #### [facility] CLIA [id number] [address] [place] [address] [place] SPE STAFF REVIEW Reviewed by Ritesh Sommer MD, Ph.D ([id number]) Normal [facility] Comment on above: Order Comment: Speci men Type: BLOOD SPECIMEN Ordering Facility: [facility] Address: [address] [place] [address] Performed By: #### 2 885-2 #### [facility] CLIA [id number] [address] [place] [address] [place] Prot SerPl-mCncon 06-10-2023 Protein [Mass/Vol] 4.2 g/dL Low 6.3-8.0 [facility] Comment on above: Order Comment: Speci men Type: BLOOD SPECIMEN Order[facility] Address: [address] [place] [address] Performed By: #### 2 885-2 #### [facility] CLIA [id number] [address] [place] [address] [place] T3Free SerPl-mCncon 06-10-19 Free T3 [Mass/Vol] 1.8 pg/mL Low 2.3-4.1 [facility] Comment on above: Order Comment: Speci men Type: BLOOD SPECIMEN Ordering Facility: [facility] Address: [address] [place] [address] Performed By: #### 3 4528-0, 13841-0 #### [facility] CLIA [id number] [address] [place] [address] [place] T4 Free SerPl-mCncon 024 Free T4 [Mass/Vol] 1.6 ng/dL Normal 0.9-1.7 [facility] Comment on above: Order Comment: Speci men Type: BLOOD SPECIMEN Ordering Facility: [facility] Address: [address] [place] [address] Performed By: #### 3 4528-0, 62577-0 #### [facility] CLIA [id number] [address] [place] [address] [place] TSH SerPl-aCncon 06-10-2023 TSH Qn 0.518 m[IU]/L Normal 0.270-4.200 [facility] Comment on above: Order Comment: Speci men Type: BLOOD SPECIMEN Ordering Facility: [facility] Address: [address] [place] [address] Performed By: #### 3 4528-0, 19052-5 #### [facility] CLIA [id number] [address] [place] [address] [place] Vit A SerPl-mCncon Retinol [Mass/Vol] 0.19 mg/L Low 0.30-1.20 [facility] Comment on above: Order Comment: Speci men Type: URINE SPECIMEN Ordering [facility]: [facility] Address: [address] [place] [address] Result Comment: This test was developed and its performance characteristics determined by [facility]'s Javier JAlaina [facility] Pathology and Laboratory Medicine [place] (-[facility]). It has not been cleared or approved by the FDA. [facility] is regulated under CLIA as qualified to perform high-complexity testing. This test is used for clinical purposes. It should not be regarded as investigational or for research. Performed By: #### U RMPA #### [facility] CLIA [id number] [address] [place] [address] [place] [address] [place] aPTT PPPon 06-10-2023 aPTT Coag (PPP) [Time] 52.7 s High 23.0-32.4 [facility] Comment on above: Order Comment: Speci men Type: BLOOD SPECIMENOrdering Facility: [facility] Address: [address] [place] [address] Performed By: #### 1 4979-9 ####[facility] [id number] [address] [place] aPTT Coag (PPP) [Time] 51.2 s High 23.0-32.4 [facility] Comment on above: Order Comment: Speci men Type: BLOOD SPECIMEN Ordering [facility]: [facility] Address: [address] [place] [address] Performed By: #### 3 4528-0, 32275-2 #### [facility] CLIA [id number] [address] [place] aPTT Coag (PPP) [Time] 36.2 s High 23.0-32.4 [facility] Comment on above: Order Comment: Speci men Type: BLOOD SPECIMEN Ordering [facility]: [facility] Address: [address] [place] [address] Performed By: #### 3 4528-0, 57005-9 #### [facility] CLIA [id number] [address] [place] [address] [place] aPTT Coag (PPP) [Time] 71.2 s High 23.0-32.4 [facility] Comment on above: Order Comment: Speci men Type: BLOOD SPECIMENOrdering Facility: [facility] Address: [address] [place] [address] Performed By: #### 1 4979-9 ####[facility] [id number] [place] [address] [place] Basic metabolic 2000 panelon 06-09-2023 Anion gap [Moles/Vol] 10 mmol/L Normal 9-18 [facility] Comment on above: Order Comment: Speci men Type: URINE SPECIMEN Order[facility]: [facility] Address: [address] [place] [address] Performed By: #### U RMPA #### [facility] CLIA [id number] [address] [place] [address] [place] Calcium [Mass/Vol] 11.6 mg/dL High 8.5-10.2 [facility] Comment on above: Order Comment: Speci men Type: URINE SPECIMEN Ordering Facility: [facility] Address: [address] [place] [address] Performed By: #### U RMPA #### [facility] CLIA [id number] [address] [place] [address] [place] Chloride [Moles/Vol] 110 mmol/L High 97-105 [facility] Comment on above: Order Comment: Speci men Type: URINE SPECIMEN Order[facility] Address: [address] [place] [address] Performed By: #### U RMPA #### [facility] CLIA [id number] [address] [place] [address] [place] CO2 [Moles/Vol] 23 mmol/L Normal 22-30 [facility] Comment on above: Order Comment: Speci men Type: URINE SPECIMEN Order[facility] Address: [address] [place] [address] Performed By: #### U RMPA #### [facility] CLIA [id number] [address] [place] [address] [place] Creatinine [Mass/Vol] 1.84 mg/dL High 0.58-0.96 [facility] Comment on above: Order Comment: Speci men Type: URINE SPECIMEN Order[facility] Address: [address] [place] [address] Performed By: #### U RMPA #### [facility] CLIA [id number] [address] [place] [address] [place] Creatinine and Glomerular filtration rate.predicted panel (S/P/Bld) 27 mL/min/1.73m??? Low >=60 [facility] Comment on above: Order Comment: Speci men Type: URINE SPECIMEN Order[facility]: [facility] Address: [address] [place] [address] Result Comment: Marisabel mated Glomerular Filtration Rate (eGFR) is calculated using the 2020 CKD-EPI creatinine equation. This equation utilizes serum creatinine, sex, and age as parameters. The creatinine assay has traceable calibration to isotope dilution-mass spectrometry. Refer to KDIGO guidelines for clinical interpretation. In patients with unstable renal function, e.g. those with acute kidney injury, the eGFR may not accurately reflect actual GFR. Performed By: #### U RMPA #### [facility] CLIA [id number] [address] [place] [address] [place] Glucose [Mass/Vol] 86 mg/dL Normal 74-99 [facility] Comment on above: Order Comment: Speci men Type: URINE SPECIMEN Order[facility] Facility: [facility] Address: [address] [place] [address] Result Comment: The [place] Diabetes Association (ADA) provides guidance for cutoff values for fasting glucose and random glucose. The ADA defines fasting as no caloric intake for at least 8 hours. Fasting plasma glucose results between 100 to 125 mg/dL indicate increased risk for diabetes (prediabetes). Fasting plasma glucose results greater than or equal to 126 mg/dL meet the criteria for diagnosis of diabetes. In the absence of unequivocal hyperglycemia, results should be confirmed by repeat testing. In a patient with classic symptoms of hyperglycemia or hyperglycemic crisis, random plasma glucose results greater than or equal to 200 mg/dL meet the criteria for diagnosis of diabetes. Reference: Standards of Medical Care in Diabetes 2016, [place] [employer] Association. Diabetes Care. 2016.39(Suppl 1). Performed By: #### U RMPA #### [facility] CLIA [id number] [address] [place] [address] [place] Potassium [Moles/Vol] 3.9 mmol/L Normal 3.7-5.1 [facility] Comment on above: Order Comment: Speci men Type: URINE SPECIMEN Order[facility] Address: [address] [place] [address] Performed By: #### U RMPA #### [facility] CLIA [id number] [address] [place] [address] [place] Sodium [Moles/Vol] 143 mmol/L Normal 136-144 [facility] Comment on above: Order Comment: Speci men Type: URINE SPECIMEN Order[facility] Address: [address] [place] [address] Performed By: #### U RMPA #### [facility] CLIA [id number] [address] [place] [address] [place] Urea nitrogen [Mass/Vol] 39 mg/dL High 7-21 [facility] Comment on above: Order Comment: Speci men Type: URINE SPECIMEN Order[facility] Facility[facility] Address: [address] [place] [address] Performed By: #### U RMPA #### [facility] CLIA [id number] [address] [place] [address] [place] CASE MGT INIT Miguelito 2023 CASE MGT INIT OSMAN HNO ID: [id number] Author: CHERIE ELAINE RN Service: ? Author Type: Registered Nurse Type: Care Mgt Initial Assessment Filed: 06/09/2023 15:07 Note Text: CARE MANAGEMENT: ASSESSMENT AND DISCHARGE PLAN SERVICE DATE: June 09, 2023 SERVICE TIME: 3:07 PM PCP: Amos Floyd MD Primary Contact: Extended Emergency Contact Information Primary Emergency Contact: Souleymane Lazar Relation: Daughter Secondary Emergency Contact: Fide Pena Mobile Relation: Daughter Admission Status: Inpatient Insurance Provider: [employer] HMO Discharge Planning requested by: Per Department Practice Potential Transition Plans Home;No Services Indicated Advance Directives 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;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 In Chart: No Current Living Arrangements and Support Lives with: Alone Type of Residence: Private Residence (House) Does the patient have to climb stairs at home?: No Support: Family members How do you manage to accomplish the following: Independent: Ambulation;Bathe/Shower; Dress;Meals/Meal Prep;Going to the bathroom;Medication Management Dependent: Transportation to appointments/community Current Services/Equipment Current Post-Acute Service(s): DME Current DME Type: Shower seat, Grab bars, Standard walker Discharge Planning Patient Goal(s): Be able to go home, General wellness Ly[place] of Choice Explained: [place] of Choice Given: No Reason Not Given: No placements necessary Are you interested in bedside delivery of your medications? No Discharge Planning Participant(s): Patient Patient/Family Comments: Caregiver Assessment: Caregiver is ready, willing and able to meet the patient's needs as recommended by the inter-professional team: No Caregiver needed Transport at Discharge: Transportation Arrangements: Car Needs Prior to Discharge: Needs Prior to Discharge: None Post-Acute Discharge Plan: Met with patient at the bedside. 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 Denies current use of HHC. DME+ Denies financial assistance needs. At this time plan is home with self care, family to transport. CM to follow for transitional needs SIGNATURE: Cherie Elaine RN PATIENT NAME: Linda Peralta DATE: June 09, 2023 TIME: 3:06 PM CONTACT #: [phone] Normal [facility] CBC panel Auto (Bld)on 06-08 Erythrocyte distribution width (RBC) [Ratio] 14.5 % Normal 11.5-15.0 [facility] Comment on above: Order Comment: Speci men Type: BLOOD SPECIMEN Order[facility] Facility[facility] Address: [address] [place] [address] Performed By: #### 2 885-2 #### [facility] CLIA [id number] [address] [place] [address] [place] Hematocrit (Bld) [Volume fraction] 42.9 % Normal 36.0-46.0 [facility] Comment on above: Order Comment: Speci men Type: BLOOD SPECIMEN Order[facility] Address: [address] [place] [address] Performed By: #### 2 885-2 #### [facility] CLIA [id number] [address] [place] [address] [place] Hemoglobin (Bld) [Mass/Vol] 14.0 g/dL Normal 11.5-15.5 [facility] Comment on above: Order Comment: Speci men Type: BLOOD SPECIMEN Order[facility] Facility[facility] Address: [address] [place] [address] Performed By: #### 2 885-2 #### [facility] CLIA [id number] [address] [place] [address] [place] MCH (RBC) [Entitic mass] 29.5 pg Normal 26.0-34.0 [facility] Comment on above: Order Comment: Speci men Type: BLOOD SPECIMEN Order[facility] Facility[facility] Address: [address] [place] [address] Performed By: #### 2 885-2 #### [facility] CLIA [id number] [address] [place] [address] [place] MCHC (RBC) [Mass/Vol] 32.6 g/dL Normal 30.5-36.0 [facility] Comment on above: Order Comment: Speci men Type: BLOOD SPECIMEN Order[facility] Address: [address] [place] [address] Performed By: #### 2 885-2 #### [facility] CLIA [id number] [address] [place] [address] [place] MCV (RBC) [Entitic vol] 90.3 fL Normal 80.0-100.0 [facility] Comment on above: Order Comment: Speci men Type: BLOOD SPECIMEN Ordering Facility: [facility] Address: [address] [place] [address] Performed By: #### 2 885-2 #### [facility] CLIA [id number] [address] [place] [address] [place] Nucleated RBC (Bld) [#/Vol] 10*3/uL Normal <0.01 [facility] Comment on above: Order Comment: Speci men Type: BLOOD SPECIMEN Ordering Facility: [facility] Address: [address] [place] [address] Performed By: #### 2 885-2 #### [facility] CLIA [id number] [address] [place] [address] [place] Platelet mean volume (Bld) [Entitic vol] 10.7 fL Normal 9.0-12.7 [facility] Comment on above: Order Comment: Speci men Type: BLOOD SPECIMEN Ordering Facility: [facility] Address: [address] [place] [address] Performed By: #### 2 885-2 #### [facility] CLIA [id number] [address] [id number] [address] [place] Platelets (Bld) [#/Vol] 290 10*3/uL Normal 150-400 [facility] Comment on above: Order Comment: Speci men Type: BLOOD SPECIMEN Ordering Facility: [facility] Address: [address] [place] [address] Performed By: #### 2 885-2 #### [facility] CLIA [id number] [address] [place] [address] [place] RBC (Bld) [#/Vol] 4.75 10*6/uL Normal 3.90-5.20 [facility] Comment on above: Order Comment: Speci men Type: BLOOD SPECIMEN Ordering Facility: [facility] Address: [address] [place] [address] Performed By: #### 2 885-2 #### [facility] CLIA [id number] [address] [place] [address] [place] WBC (Bld) [#/Vol] 12.38 10*3/uL High 3.70-11.00 [facility] Comment on above: Order Comment: Speci men Type: BLOOD SPECIMEN Ordering Facility: [facility] Address: [address] [place] [address] Performed By: #### 2 885-2 #### [facility] CLIA [id number] [address] [place] [address] [place] Erythrocyte distribution width (RBC) [Ratio] 14.6 % Normal 11.5-15.0 [facility] Comment on above: Order Comment: Speci men Type: BLOOD SPECIMEN Ordering Facility: [facility] Address: [address] [place] [address] Performed By: #### 2 885-2 #### [facility] CLIA [id number] [address] [place] [address] [place] Hematocrit (Bld) [Volume fraction] 41.6 % Normal 36.0-46.0 [facility] Comment on above: Order Comment: Speci men Type: BLOOD SPECIMEN Ordering Facility: [facility] Address: [address] [place] [address] Performed By: #### 2 885-2 #### [facility] CLIA [id number] [address] [place] [address] [place] Hemoglobin (Bld) [Mass/Vol] 13.6 g/dL Normal 11.5-15.5 [facility] Comment on above: Order Comment: Speci men Type: BLOOD SPECIMEN Ordering Facility: [facility] Address: [address] [place] [address] Performed By: #### 2 885-2 #### [facility] CLIA [id number] [address] [place] [address] [place] MCH (RBC) [Entitic mass] 29.1 pg Normal 26.0-34.0 [facility] Comment on above: Order Comment: Speci men Type: BLOOD SPECIMEN Ordering Facility: [facility] Address: [address] [place] [address] Performed By: #### 2 885-2 #### [facility] CLIA [id number] [address] [place] [address] [place] MCHC (RBC) [Mass/Vol] 32.7 g/dL Normal 30.5-36.0 [facility] Comment on above: Order Comment: Speci men Type: BLOOD SPECIMEN Ordering Facility: [facility] Address: [address] [place] [address] Performed By: #### 2 885-2 #### [facility] CLIA [id number] [address] [place] [address] [place] MCV (RBC) [Entitic vol] 89.1 fL Normal 80.0-100.0 [facility] Comment on above: Order Comment: Speci men Type: BLOOD SPECIMEN Ordering Facility: [facility] Address: [address] [place] [address] Performed By: #### 2 885-2 #### [facility] CLIA [id number] [address] [place] [address] [place] Nucleated RBC (Bld) [#/Vol] 10*3/uL Normal <0.01 [facility] Comment on above: Order Comment: Speci men Type: BLOOD SPECIMEN Ordering Facility: [facility] Address: [address] [place] [address] Performed By: #### 2 885-2 #### [facility] CLIA [id number] [address] [place] [address] [place] Platelet mean volume (Bld) [Entitic vol] 11.1 fL Normal 9.0-12.7 [facility] Comment on above: Order Comment: Speci men Type: BLOOD SPECIMEN Ordering Facility: [facility] Address: [address] [place] [address] Performed By: #### 2 885-2 #### [facility] CLIA [id number] [address] [place] [address] [place] Platelets (Bld) [#/Vol] 309 10*3/uL Normal 150-400 [facility] Comment on above: Order Comment: Speci men Type: BLOOD SPECIMEN Ordering Facility: [facility] Address: [address] [place] [address] Performed By: #### 2 885-2 #### [facility] CLIA [id number] [address] [place] [address] [place] RBC (Bld) [#/Vol] 4.67 10*6/uL Normal 3.90-5.20 [facility] Comment on above: Order Comment: Speci men Type: BLOOD SPECIMEN Ordering Facility: [facility] Address: [address] [place] [address] Performed By: #### 2 885-2 #### [facility] CLIA [id number] [address] [place] [address] [place] WBC (Bld) [#/Vol] 14.74 10*3/uL High 3.70-11.00 [facility] Comment on above: Order Comment: Jody fairbanks Type: BLOOD SPECIMEN Ordering Facility: [facility] Address: [address] [place] [address] Performed By: #### 2 885-2 #### [facility] CLIA [id number] [address] [place] [address] [place] CONSULTon 06-09-2023 CONSULT HNO ID: [id number] Author: SADIA ALCANTARA MD Service: Clinical Cardiology Author Type: Physician Type: Consults Filed: 06/10/2023 11:17 Note Text: CONSULT: CARDIOLOGY SERVICE SERVICE DATE: 06/10/2023 SERVICE TIME: - CONSULTING PHYSICIAN: Sadia Alcantara PCP: Amos Floyd MD ATTENDING: Eugenie Langston DO REASON FOR CONSULT: Chest Pain Patient not seen by me SIGNATURE: Sadia Alcantara MD PATIENT NAME: Linda Peralta DATE: June 10, 2023 TIME: 3:45 PM Normal [facility] ED NOTEon 06-09-2023 ED NOTE HNO ID: [id number] Author: LISA PENG RN Service: Emergency Medicine Author Type: Registered Nurse Type: ED Notes Filed: 06/08/2023 22:20 Note Text: Patient is alert, oriented, no distress at time of transfer. 4200 called to update on ETA. Normal [facility] HIGH SENSITIVITY TROPONIN To n 06-09-2023 Troponin T.cardiac High sensitivity method [Mass/Vol] 1276 ng/L High <12 [facility] Comment on above: Order Comment: Jody fairbanks Type: URINE SPECIMEN Ordering Facility: [facility] Address: [address] [place] [address] Result Comment: When assessing risk for acute coronary syndromes: In patients undergoing blood draw greater than or equal to 2 hours from symptom onset, with history of very low to moderate risk and non-ischemic ECG, an initial hs-Troponin T less than 12 ng/L AND a 1 hour delta hs-Troponin T less than 3 ng/L should be considered very low risk for 30 day MACE. Performed By: #### U RMPA #### [facility] CLIA [id number] [address] [place] [address] [place] Troponin T.cardiac High sensitivity method [Mass/Vol] 1049 ng/L High <12 [facility] Comment on above: Order Comment: Speci men Type: BLOOD SPECIMEN Ordering Facility: [facility] Address: [address] [place] [address] Result Comment: When assessing risk for acute coronary syndromes: In patients undergoing blood draw greater than or equal to 2 hours from symptom onset, with history of very low to moderate risk and non-ischemic ECG, an initial hs-Troponin T less than 12 ng/L AND a 1 hour delta hs-Troponin T less than 3 ng/L should be considered very low risk for 30 day MACE. Performed By: #### 3 4528-0, 26730-7 #### [facility] CLIA [id number] [address] [place] HISTORY PHYSICALon HISTORY PHYSICAL HNO ID: [id number] Author: FLORIDALMA BRANDON II, MD Service: Hospital Medicine Author Type: Physician Type: H&P Filed: 06/09/2023 02:28 Note Text: DEPARTMENT OF HOSPITAL MEDICINE HISTORY AND PHYSICAL EXAM SERVICE DATE: 06/09/2023 SERVICE TIME: 12:32 AM Primary Care Physician: Amos Floyd MD NIGHT AND WEEKEND COVERAGE: From 7am - 7pm, please call Sound attending After 7pm, please call cross cover pager #[phone] == ASSESSMENT AND PLAN: 1) NSTEMI - Hx: HLD, CAD, HTN * simvastatin 20 mg PO daily at bedtime - Admit to Inpatient - tele - follow trops - heparin gtt - BMP in am - CBC in am - NPO - cardiology consult 2) UTI - NS 75 cc/hr - ceftriaxone 1 g IV daily - CBC in am - BMP in am 3) GI - Hx: GERD, collagenous colitis 4) Hematology - Hx: DVT, anemia * warfarin (held) 5) [place] * hydrocortisone 10 mg PO BID == == Chief Complaint: chest pain HPI: Linda Peralta is a 78 year old female with history of HLD, CAD, HTN, GERD, DVT, collagenous colitis, asthma and anemia who presents to the hospital due to two episodes of substernal nonradiating nonexertional chest pain occurring around 7 and 9 yesterday morning. She also had some nausea on the way to the hospital, though she says she occasionally gets bouts of it and diarrhea every since developing Moris's disease. She denies any palpitations or other symptoms: no lightheadedness, diaphoresis, shortness of breath, LE swelling, abdominal pain, dysuria or LE swelling. She says she has been told she had a heart attack in the past, but she says she never had any symptoms. 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 Labs revealed WBCs of 13.53, otherwise normal CBC, Cr of 1.97 (baseline), otherwise normal BMP, Ca of 13.7, total protein of 5.7, AST of 72 and ALT of 72. Lactate was 2.3. BNP was 4902. Trops was 910. CXR showed a 2.1 cm nodular density profiling the right lower lung. The ED gave 2.0L NS, 2.5 midodrine and started ceftriaxone. ######################## ######################## ##### ######################## ######################## ##### ######################## ######################## ##### OTHER HISTORY################# ##################### ######################## ######################## ##### ######################## ######################## ##### ######################## ######################## ##### == ROS: Negative except those noted in HPI above == PHYSICAL EXAM GENERAL: Alert, no distress, cooperative SKIN : Warm, dry intact, no open lesions, no rashes HEAD / SINUSES : Normocephalic, atraumatic, oral mucosa moist EYES : PERRLA, EOMI NECK : No jugulovenous distention, Supple, no adenopathy LUNGS : Lungs clear to auscultation, no wheezes, rhonchi, or rales CARDIAC : RRR, Normal S1 and S2; no rubs, murmurs, or gallops ABDOMEN : Abdomen soft, non - tender, BS normal, No masses or organomegaly EXTREMITIES : Extremities normal, no deformities, edema, clubbing or skin discoloration NEURO : Sensation grossly intact, Cranial nerves II - XII intact, moves all 4 extremities, speech was clear and coherent - no chronic quan == All pertinent labs, imaging, medical Hx, Surgical Hx, Family Hx, Social Hx, home medications, and allergies reviewed. See below. == Medical History: HLD CAD HTN GERD DVT collagenous colitis asthma anemia == Surgical History: cataract extraction hx, bilateral 10/2017 - september and october 2017 colonoscopy w/biopsy, bilateral 03/25/2016 colonoscopy flx dx w/collj spec when pfrmd, bilateral 05/12/2004 - colonoscopy colonoscopy flx dx w/collj spec when pfrmd, bilateral 09/20/2007 - colonoscopy colonoscopy flx dx w/collj spec when pfrmd, bilateral 05/11/2009 - colonoscopy colonoscopy flx dx w/collj spec when pfrmd, bilateral 03/26/2010 - inpatient at [facility] esophagogastroduodenosco py transoral diagnostic, bilateral 02/2002 - [facility] esophagogastroduodenosco py transoral diagnostic, bilateral 05/01/2009 - [facility] esophagogastroduodenosco py transoral diagnostic, bilateral 11/18/2009 - [facility], exc cyst/aberrant breast tissue open lesion, bilateral 1959 - benign ivc filter percutaneous, bilateral 03/31/2009 laps surg cholecystectomy w/cholangiography, bilateral 03/30/2016 left heart cath,percutaneous, bilateral 04/27/2009 - cardiac cath, l heart nephrectomy partial, bilateral 04/2000 - nephrectomy, left nephrectomy partial, bilateral 04/14/09 - right - metanephric adenoma (benign) oophorectomy partial/total uni/bi, bilateralleft 1 (more content not included)... Normal [facility] PT panel Coag (PPP)on 2023 INR Coag (PPP) [Relative time] 3.1 {INR} High 0.9-1.3 [facility] Comment on above: Order Comment: Jody fairbanks Type: BLOOD SPECIMEN Ordering Facility: [facility] Address: [address] [place], [place] [id number] Result Comment: Saray min K Antagonist (VKA) Therapeutic Range: INR 2 to 3 (Target INR of 2.5) Note: For patients treated with VKA drugs, such as warfarin, the [employer] 2012 Guideline recommends a therapeutic INR range of 2 to 3 (target INR of 2.5). This recommendation includes high-risk patients with antiphospholipid syndrome with previous arterial or venous thromboembolism, current-generation mechanical or bioprosthetic aortic heart valve replacement. Note: Patients with mechanical aortic valve replacement and additional risk factors for thromboembolic events (atrial fibrillation, previous thromboembolism, LV dysfunction, hypercoagulable conditions) or an older generation mechanical AVR (i.e., ball in-Cage) or any mechanical MVR should have a INR therapeutic range of 2.5 to 3.5 (target INR of 3). Lindsey GH, et al. Chest 2012, 141:7S-47S Bandar RA, et al. [facility] 2017, 70: 252-289 Performed By: #### L [id number] #### [facility] CLIA [id number] [address] [place] [address] [place] PT Coag (PPP) [Time] 29.7 s High 9.7-13.0 [facility] Comment on above: Order Comment: Jody fairbanks Type: BLOOD SPECIMEN Ordering Facility: [facility] Address: [address] [place] [address] Performed By: #### L [id number] #### [facility] CLIA [id number] [address] [place] [address] [place] aPTT PPPon 06-09-2023 aPTT Coag (PPP) [Time] 74.3 s High 23.0-32.4 [facility] Comment on above: Order Comment: Speci men Type: BLOOD SPECIMEN Ordering Facility: [facility] Address: [address] [place] [address] Performed By: #### 3 4528-0, 95664-6 #### [facility] CLIA [id number] [address] aPTT Coag (PPP) [Time] 120.5 s High 23.0-32.4 [facility] Comment on above: Order Comment: Speci men Type: BLOOD SPECIMENOrdering Facility: [facility] Address: [address] [place] [address] Performed By: #### 1 4979-9 ####[facility] [id number] [address] aPTT Coag (PPP) [Time] 48.7 s High 23.0-32.4 [facility] Comment on above: Order Comment: Speci men Type: BLOOD SPECIMEN Ordering Facility: [facility] Address: [address] [place] [address] Performed By: #### 2 885-2 #### [facility] CLIA [id number] [address] [place] [address] OF [facility] ALLIED HEALTHon 06-08-2023 ALLIED HEALTH HNO ID: [id number] Author: LINDA SMYTH RT(R) Service: ? Author Type: Technologist Type: Allied Health Filed: 06/08/2023 15:47 Note Text: Radiology Service Progress Note PATIENT NAME: Linda Peralta DATE OF SERVICE: June 08, 2023 TIME: 3:46 PM PATIENT IDENTITY VERIFICATION COMPLETED USING TWO (2) IDENTIFIERS: Name and Date of confirmed by patient verbally. FALL SCREENING: Has the patient had 2 falls in the last year or 1 fall with injury or currently using an Ambulatory Assistive Device (Walker, Cane, Wheelchair, Crutches, etc.)? Emergency Room Patient: Screened in ED PATIENT GENDER DATA: Female. status: : No status: NO. 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 RADIOLOGY DEPARTMENT: General X-ray: Exam(s) Completed: Chest X-Ray PERIPHERAL IV DATA: Not applicable SIGNED BY: RT Jayme(R) June 08, 2023 3:46 PM Normal [facility] CBC W Auto Differential pane l (Bld)on 06-08-2023 Basophils (Bld) [#/Vol] 0.05 10*3/uL Normal <0.11 [facility] Comment on above: Order Comment: Speci men Type: BLOOD SPECIMEN Ordering Facility: [facility] Address: [address] [place] [address] Performed By: #### 2 885-2 #### [facility] CLIA [id number] [address] [place] [address] [place] Basophils/100 WBC (Bld) 0.4 % Normal [facility] Comment on above: Order Comment: Speci men Type: BLOOD SPECIMEN Ordering Facility: [facility] Address: [address] [place] [address] Performed By: #### 2 885-2 #### [facility] CLIA [id number] [address] [place] [address] [place] Differential cell count method Nom (Bld) Auto Normal [facility] Comment on above: Order Comment: Speci men Type: BLOOD SPECIMEN Ordering Facility: [facility] Address: [address] [place] [address] Performed By: #### 2 885-2 #### [facility] CLIA [id number] [address] [place] [address] [place] Eosinophils (Bld) [#/Vol] 0.65 10*3/uL High <0.46 [facility] Comment on above: Order Comment: Speci men Type: BLOOD SPECIMEN Ordering Facility: [facility] Address: [address] [place] [address] Performed By: #### 2 885-2 #### [facility] CLIA [id number] [address] [place] [address] [place] Eosinophils/100 WBC (Bld) 4.8 % Normal [facility] Comment on above: Order Comment: Speci men Type: BLOOD SPECIMEN Ordering Facility: [facility] Address: [address] [place] [address] Performed By: #### 2 885-2 #### [facility] CLIA [id number] [address] [place] [address] [place] Erythrocyte distribution width (RBC) [Ratio] 14.3 % Normal 11.5-15.0 [facility] Comment on above: Order Comment: Speci men Type: BLOOD SPECIMEN Ordering Facility: [facility] Address: [address] [place] [address] Performed By: #### 2 885-2 #### [facility] CLIA [id number] [address] [place] [address] [place] Hematocrit (Bld) [Volume fraction] 42.7 % Normal 36.0-46.0 [facility] Comment on above: Order Comment: Speci men Type: BLOOD SPECIMEN Ordering Facility: [facility] Address: [address] [place] [address] Performed By: #### 2 885-2 #### [facility] CLIA [id number] [address] [place] [address] [place] Hemoglobin (Bld) [Mass/Vol] 13.8 g/dL Normal 11.5-15.5 [facility] Comment on above: Order Comment: Speci men Type: BLOOD SPECIMEN Ordering Facility: [facility] Address: [address] [place] [address] Performed By: #### 2 885-2 #### [facility] CLIA [id number] [address] [place] [address] [place] Immature granulocytes (Bld) [#/Vol] 0.17 10*3/uL High <0.10 [facility] Comment on above: Order Comment: Speci men Type: BLOOD SPECIMEN Ordering Facility: [facility] Address: [facility] [place] [address] Performed By: #### 2 885-2 #### [facility] CLIA [id number] [address] [place] [address] [place] Immature granulocytes/100 WBC (Bld) 1.3 % Normal [facility] Comment on above: Order Comment: Speci men Type: BLOOD SPECIMEN Ordering Facility: [facility] Address: [address] [place] [address] Performed By: #### 2 885-2 #### [facility] CLIA [id number] [address] [place] [address] [place] Lymphocytes (Bld) [#/Vol] 1.48 10*3/uL Normal 1.00-4.00 [facility] Comment on above: Order Comment: Speci men Type: BLOOD SPECIMEN Ordering Facility: [facility] Address: [address] [place] [address] Performed By: #### 2 885-2 #### [facility] CLIA [id number] [address] [place] [address] [place] Lymphocytes/100 WBC (Bld) 10.9 % Normal [facility] Comment on above: Order Comment: Speci men Type: BLOOD SPECIMEN Ordering Facility: [facility] Address: [address] [place] [address] Performed By: #### 2 885-2 #### [facility] CLIA [id number] [address] [place] [address] [place] MCH (RBC) [Entitic mass] 29.1 pg Normal 26.0-34.0 [facility] Comment on above: Order Comment: Speci men Type: BLOOD SPECIMEN Ordering Facility: [facility] Address: [address] [place] [address] Performed By: #### 2 885-2 #### [facility] CLIA [id number] [address] [place] [address] [place] MCHC (RBC) [Mass/Vol] 32.3 g/dL Normal 30.5-36.0 [facility] Comment on above: Order Comment: Speci men Type: BLOOD SPECIMEN Ordering Facility: [facility] Address: [address] [place] [address] Performed By: #### 2 885-2 #### [facility] CLIA [id number] [address] [place] [address] [place] MCV (RBC) [Entitic vol] 90.1 fL Normal 80.0-100.0 [facility] Comment on above: Order Comment: Speci men Type: BLOOD SPECIMEN Ordering Facility: [facility] Address: [address] [place] [address] Performed By: #### 2 885-2 #### [facility] CLIA [id number] [address] [place] [address] [place] Monocytes (Bld) [#/Vol] 0.80 10*3/uL Normal <0.87 [facility] Comment on above: Order Comment: Speci men Type: BLOOD SPECIMEN Ordering Facility: [facility] Address: [address] [place] [address] Performed By: #### 2 885-2 #### [facility] CLIA [id number] [address] [place] [address] [place] Monocytes/100 WBC (Bld) 5.9 % Normal [facility] Comment on above: Order Comment: Speci men Type: BLOOD SPECIMEN Ordering Facility: [facility] Address: [address] [place] [address] Performed By: #### 2 885-2 #### [facility] CLIA [id number] [address] [place] [address] [place] Neutrophils (Bld) [#/Vol] 10.38 10*3/uL High 1.45-7.50 [facility] Comment on above: Order Comment: Speci men Type: BLOOD SPECIMEN Ordering Facility: [facility] Address: [address] [place] [address] Performed By: #### 2 885-2 #### [facility] CLIA [id number] [address] [place] [address] [place] Neutrophils/100 WBC (Bld) 76.7 % Normal [facility] Comment on above: Order Comment: Speci men Type: BLOOD SPECIMEN Ordering Facility: [facility] Address: [address] [place] [address] Performed By: #### 2 885-2 #### [facility] CLIA [id number] [address] [place] [address] [place] Nucleated RBC (Bld) [#/Vol] Normal [facility] Comment on above: Order Comment: Speci men Type: BLOOD SPECIMEN Ordering Facility: [facility] Address: [address] [place] [address] Performed By: #### 2 885-2 #### [facility] CLIA [id number] [address] [place] [address] [place] Nucleated RBC/100 WBC (Bld) [Ratio] Normal [facility] Comment on above: Order Comment: Speci men Type: BLOOD SPECIMEN Ordering Facility: [facility] Address: [address] [place] [address] Performed By: #### 2 885-2 #### [facility] CLIA [id number] [address] [place] [address] [place] Platelet mean volume (Bld) [Entitic vol] 10.8 fL Normal 9.0-12.7 [facility] Comment on above: Order Comment: Speci men Type: BLOOD SPECIMEN Ordering Facility: [facility] Address: [address] [place] [address] Performed By: #### 2 885-2 #### [facility] CLIA [id number] [address] [place] [address] [place] Platelets (Bld) [#/Vol] 317 10*3/uL Normal 150-400 [facility] Comment on above: Order Comment: Speci men Type: BLOOD SPECIMEN Ordering Facility: [facility] Address: [address] [place] [address] Performed By: #### 2 885-2 #### [facility] CLIA [id number] [address] [place] [address] [place] RBC (Bld) [#/Vol] 4.74 10*6/uL Normal 3.90-5.20 [facility] Comment on above: Order Comment: Speci men Type: BLOOD SPECIMEN Ordering Facility: [facility] Address: [address] [place] [address] Performed By: #### 2 885-2 #### [facility] CLIA [id number] [address] [place] [address] [place] WBC (Bld) [#/Vol] 13.53 10*3/uL High 3.70-11.00 [facility] Comment on above: Order Comment: Speci men Type: BLOOD SPECIMEN Ordering Facility: [facility] Address: [address] [place] [address] Performed By: #### 2 885-2 #### [facility] CLIA [id number] [address] [place] [address] [place] Calcium.ionized [Moles/Vol]o n 06-08-2023 Calcium.ionized (Bld) [Mass/Vol] 1.72 mmol/L High 1.08-1.30 [facility] Comment on above: Order Comment: Speci men Type: BLOOD SPECIMEN Ordering Facility: [facility] Address: [address] [place] [address] Performed By: #### 3 4528-0, 49901-4 #### [facility] CLIA [id number] [address] [place] [address] [place] Calcium.ionized adjusted to pH 7.4 (Bld) [Moles/Vol] 1.74 mmol/L High 1.08-1.30 [facility] Comment on above: Order Comment: Speci men Type: BLOOD SPECIMEN Ordering Facility: [facility] Address: [address] [place] [address] Performed By: #### 3 4528-0, 83867-4 #### [facility] CLIA [id number] [address] OF [place] Comprehensive metabolic 2000 panelon 06-08-2023 Albumin [Mass/Vol] 3.2 g/dL Low 3.9-4.9 [facility] Comment on above: Order Comment: Speci men Type: URINE SPECIMEN Ordering Facility: [facility] Address: [address] [place] [address] Performed By: #### U RMPA #### [facility] CLIA [id number] [address] [place] [address] [place] ALP [Catalytic activity/Vol] 61 U/L Normal 34-123 [facility] Comment on above: Order Comment: Speci men Type: URINE SPECIMEN Ordering Facility: [facility] Address: [address] [place] [address] Performed By: #### U RMPA #### [facility] CLIA [id number] [address] [place] [address] [place] ALT With P-5'-P [Catalytic activity/Vol] 72 U/L High 7-38 [facility] Comment on above: Order Comment: Speci men Type: URINE SPECIMEN Ordering Facility: [facility] Address: [address] [place] [address] Performed By: #### U RMPA #### [facility] CLIA [id number] [address] [place] [address] [place] Anion gap [Moles/Vol] 13 mmol/L Normal 9-18 [facility] Comment on above: Order Comment: Speci men Type: URINE SPECIMEN Ordering Facility: [facility] Address: [address] [place] [address] Performed By: #### U RMPA #### [facility] CLIA [id number] [address] [place] [address] [place] AST With P-5'-P [Catalytic activity/Vol] 72 U/L High 13-35 [facility] Comment on above: Order Comment: Speci men Type: URINE SPECIMEN Ordering Facility: [facility] Address: [address] [place] [address] Performed By: #### U RMPA #### [facility] CLIA [id number] [address] [place] [address] [place] Bilirubin [Mass/Vol] 0.6 mg/dL Normal 0.2-1.3 [facility] Comment on above: Order Comment: Speci men Type: URINE SPECIMEN Ordering Facility: [facility] Address: [address] [place] [address] Performed By: #### U RMPA #### [facility] CLIA [id number] [address] [place] [address] [place] Calcium [Mass/Vol] 13.7 mg/dL High 8.5-10.2 [facility] Comment on above: Order Comment: Speci men Type: URINE SPECIMEN Ordering Facility: [facility] Address: [address] [place] [address] Performed By: #### U RMPA #### [facility] CLIA [id number] [address] [place] [address] [place] Chloride [Moles/Vol] 103 mmol/L Normal 97-105 [facility] Comment on above: Order Comment: Speci men Type: URINE SPECIMEN Ordering Facility: [facility] Address: [address] [place] [address] Performed By: #### U RMPA #### [facility] CLIA [id number] [address] [place] [address] [place] CO2 [Moles/Vol] 24 mmol/L Normal 22-30 [facility] Comment on above: Order Comment: Speci men Type: URINE SPECIMEN Ordering Facility: [facility] Address: [address] [place] [address] Performed By: #### U RMPA #### [facility] CLIA [id number] [address] [place] [address] [place] Creatinine [Mass/Vol] 1.97 mg/dL High 0.58-0.96 [facility] Comment on above: Order Comment: Speci men Type: URINE SPECIMEN Ordering Facility: [facility] Address: [address] [place] [address] Performed By: #### U RMPA #### [facility] CLIA [id number] [address] [place] [address] [place] Creatinine and Glomerular filtration rate.predicted panel (S/P/Bld) 25 mL/min/1.73m??? Low >=60 [facility] Comment on above: Order Comment: Speci men Type: URINE SPECIMEN Ordering Facility: [facility] Address: [address] [place] [address] Result Comment: Marisabel mated Glomerular Filtration Rate (eGFR) is calculated using the 2020 CKD-EPI creatinine equation. This equation utilizes serum creatinine, sex, and age as parameters. The creatinine assay has traceable calibration to isotope dilution-mass spectrometry. Refer to KDIGO guidelines for clinical interpretation. In patients with unstable renal function, e.g. those with acute kidney injury, the eGFR may not accurately reflect actual GFR. Performed By: #### U RMPA #### [facility] CLIA [id number] [address] [place] [address] [place] Glucose [Mass/Vol] 100 mg/dL High 74-99 [facility] Comment on above: Order Comment: Speci men Type: URINE SPECIMEN Ordering Facility: [facility] Address: [address] [place] [address] Result Comment: The [place] Diabetes [employer] (ADA) provides guidance for cutoff values for fasting glucose and random glucose. The ADA defines fasting as no caloric intake for at least 8 hours. Fasting plasma glucose results between 100 to 125 mg/dL indicate increased risk for diabetes (prediabetes). Fasting plasma glucose results greater than or equal to 126 mg/dL meet the criteria for diagnosis of diabetes. In the absence of unequivocal hyperglycemia, results should be confirmed by repeat testing. In a patient with classic symptoms of hyperglycemia or hyperglycemic crisis, random plasma glucose results greater than or equal to 200 mg/dL meet the criteria for diagnosis of diabetes. Reference: Standards of Medical Care in Diabetes 2016, [place] [employer]. Diabetes Care. 2016.39(Suppl 1). Performed By: #### U RMPA #### [facility] CLIA [id number] [address] [place] [address] [place] Potassium [Moles/Vol] 4.3 mmol/L Normal 3.7-5.1 [facility] Comment on above: Order Comment: Speci men Type: URINE SPECIMEN Ordering Facility: [facility] Address: [address] [place] [address] Performed By: #### U RMPA #### [facility] CLIA [id number] [address] [place] [address] [place] Protein [Mass/Vol] 5.7 g/dL Low 6.3-8.0 [facility] Comment on above: Order Comment: Speci men Type: URINE SPECIMEN Ordering Facility: [facility] Address: [address] [place] [address] Performed By: #### U RMPA #### [facility] CLIA [id number] [address] [place] [address] [place] Sodium [Moles/Vol] 140 mmol/L Normal 136-144 [facility] Comment on above: Order Comment: Speci men Type: URINE SPECIMEN Ordering Facility: [facility] Address: [address] [place] [address] Performed By: #### U RMPA #### [facility] CLIA [id number] [address] [place] [address] [place] Urea nitrogen [Mass/Vol] 44 mg/dL High 09-09 [facility] Comment on above: Order Comment: Speci men Type: URINE SPECIMEN Ordering Facility: [facility] Address: [address] [place] [address] Performed By: #### U RMPA #### [facility] CLIA [id number] [address] [place] [address] [place] ECG COMPLETEon 06-08-2023 ECG COMPLETE Ventricular Rate : 8 8 BPM Atrial Rate : 88 BPM P-R Interval : 158 ms QRS Duration : 84 ms Q-T Interval : 352 ms QTC Calculation(Bazett) : 425 ms Calculated P [place] : 40 degrees Calculated R [place] : -10 degrees Calculated T [place] : -9 degrees SINUS RHYTHM WITH MARKED SINUS ARRHYTHMIA CANNOT RULE OUT ANTERIOR INFARCT (CITED ON OR BEFORE 08-Jun-2023) NONSPECIFIC ST-T WAVE CHANGES WHEN COMPARED WITH ECG OF 08-Jun-2023 12:42, NO SIGNIFICANT CHANGE WAS FOUND Confirmed by MD MIJARES VINAYAK ([id number]) on 06/11/2023 11:36:42 PM NAME : LINDA PERALTA PID : [id number] : 1945 Gender : Female Race : ORD : [id number] Procedure Date : Jun 08 2023 14:54:36 Edit Date : Jun 11 2023 23:36:47 Diagnosis: SINUS RHYTHM WITH MARKED SINUS ARRHYTHMIA CANNOT RULE OUT ANTERIOR INFARCT (CITED ON OR BEFORE 08-Jun-2023) NONSPECIFIC ST-T WAVE CHANGES WHEN COMPARED WITH ECG OF 08-Jun-2023 12:42, NO SIGNIFICANT CHANGE WAS FOUND Confirmed by MD MIJARES VINAYAK ([id number]) on 06/11/2023 11:36:42 PM Test Reason : Chest Pain Location : 191 : [facility] Overread By : MD MIJARES VINAYAK Edited By : MD MIJARES VINAYAK Referred By : , Acquired by : JAREK BUTLER [facility] ECG COMPLETE Ventricular Rate : 1 03 BPM Atrial Rate : 103 BPM P-R Interval : 146 ms QRS Duration : 88 ms Q-T Interval : 346 ms QTC Calculation(Bazett) : 453 ms Calculated P [place] : 45 degrees Calculated R [place] : -17 degrees Calculated T [place] : -11 degrees SINUS TACHYCARDIA MINIMAL VOLTAGE CRITERIA FOR LVH, MAY BE NORMAL VARIANT ( R in aVL ) CANNOT RULE OUT ANTERIOR INFARCT , AGE UNDETERMINED ABNORMAL ECG NO PREVIOUS ECGS AVAILABLE Confirmed by MD MIJARES VINAYAK ([id number]) on 06/11/2023 11:36:21 PM NAME : LINDA PERALTA PID : [id number] : 1945 Gender : Female Race : ORD : [id number] Procedure Date : Jun 08 2023 12:42:08 Edit Date : Jun 11 2023 23:36:24 Diagnosis: SINUS TACHYCARDIA MINIMAL VOLTAGE CRITERIA FOR LVH, MAY BE NORMAL VARIANT ( R in aVL ) CANNOT RULE OUT ANTERIOR INFARCT , AGE UNDETERMINED ABNORMAL ECG NO PREVIOUS ECGS AVAILABLE Confirmed by MD MIJARES VINAYAK ([id number]) on 06/11/2023 11:36:21 PM Test Reason : Chest Pain Location : 191 : [facility] Overread By : MD MIJARES VINAYAK Edited By : MD MIJARES VINAYAK Referred By : , Acquired by : JAREK BUTLER [facility] ED NOTEon 06-08-2023 ED NOTE HNO ID: [id number] Author: YUSRA HERNANDES, ROSS Service: Emergency Medicine Author Type: Registered Nurse Type: ED Notes Filed: 06/08/2023 21:26 Note Text: Bed assigned [facility] 4205 NTN [id number] ETA 1 hour [facility] ED NOTE HNO ID: [id number] Author: YUSRA HERNANDES, ROSS Service: Emergency Medicine Author Type: Registered Nurse Type: ED Notes Filed: 06/08/2023 19:23 Note Text: Call from [facility], hospitalist will not accept patient. [facility] ED NOTE HNO ID: [id number] Author: LISA PENG, ROSS Service: Emergency Medicine Author Type: Registered Nurse Type: ED Notes Filed: 06/08/2023 18:05 Note Text: Charge nurse placed call to [facility], [facility] recommended placement elsewhere.Dr. Keane talked with patient, charge nurse placed called to [facility]. [facility] ED NOTE HNO ID: [id number] Author: LILY MENA RN Service: Emergency Medicine Author Type: Registered Nurse Type: ED Notes Filed: 06/08/2023 17:03 Note Text: [place] [facility] paged for admission. [facility] ED NOTE HNO ID: [id number] Author: LILY MENA RN Service: Emergency Medicine Author Type: Registered Nurse Type: ED Notes Filed: 06/08/2023 12:52 Note Text: 12 lead completed and given to doctor [facility] ED PROV NOTEon 06-08-2023 ED PROV NOTE HNO ID: [id number] Author: MILADYS KEANE MD Service: Emergency Medicine Author Type: Physician Type: ED Provider Notes Filed: 06/09/2023 07:34 Note Text: ED Provider Note Patient Name: Linda Peralta : 1945 SERVICE DATE: 06/08/23 History Patient presents with: Weakness Chest Pain Patient with history of multiple medical problems, presents the emergency room with her daughter, for concerns over not feeling well off and on for the past couple of weeks. Patient has recently been admitted to outside hospitals, for [place]'s crisis, repeat hypercalcemia and received treatment for the above. Patient also had exertional symptoms, with hypotension, and she was started on midodrine 1 week ago and she ran out yesterday. Today, patient had 2 episodes of chest pain approximately 15 minutes, described as a dull pressure in her chest associate with nausea that have since resolved. This happened earlier this morning. Patient is on Coumadin, for repeat lower extremity DVTs. Patient follows cardiology Dr. Marte at [place], with a recent ECHO in Mar 2023. Chest Pain Pain location: Substernal area Pain quality: dull Pain radiates to: Does not radiate Pain severity: Mild Onset quality: Gradual Duration: 15 minutes Timing: Intermittent Progression: Resolved Chronicity: New Worsened by: Nothing Ineffective treatments: tylenol. Associated symptoms: dysphagia, fatigue and nausea Associated symptoms: no fever, no headache, no palpitations and no shortness of breath PAST MEDICAL HISTORY Diagnosis Date Age-related osteoporosis with current pathological fracture with routine healing 01/19/2023 Anemia 08/26/2009 ASHD (arteriosclerotic heart disease) 04/25/2009 Asthma Benign neoplasm of colon 04/26/2005 Tubular adenoma Chronic diarrhea 03/15/2010 Chronic sphenoidal sinusitis 09/15/2003 Closed fracture of bone of right foot 11/08/2022 Collagenous colitis 03/30/2010 Contact dermatitis and other eczema, due to unspecified cause 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Moris's disease Cystocele, midline 07/23/2007 Diverticulosis of colon (without mention of hemorrhage) DVT (deep venous thrombosis) ([facility]) 03/23/2012 DVT of lower extremity (deep venous thrombosis) ([facility]) 03/27/2009 Esophageal reflux Gallstones 03/06/2016 Hypercalcemia 03/19/2009 Hypertension NSTEMI (non-ST elevated myocardial infarction) ([facility]) 04/27/2009 Cardiac cath normal Other adrenal hypofunction [...] W/COLLJ SPEC WHEN PFRMD 03/26/2010 Inpatient at [facility] ESOPHAGOGASTRODUODENOSCO PY TRANSORAL DIAGNOSTIC 02/2002 EGD ESOPHAGOGASTRODUODENOSCO PY TRANSORAL DIAGNOSTIC 05/01/2009 EGD ESOPHAGOGASTRODUODENOSCO PY TRANSORAL DIAGNOSTIC 11/18/2009 EGD, EXC CYST/ABERRANT BREAST [...] Age of Onset Coronary Artery Disease Mother [place] at 87y.o. Hypertension Mother Stroke Father Coronary Artery Disease Father sudden at 85y.o. Hypertension Sister COPD Sister Clotting Disorder Sister pulmonary embolism Kidney Disease Brother dec.sepsis, kidney transplant. Hypertension Brother DVT Daughter Breast Cancer Daughter Coronary Artery Disease Brother 65 Social History Tobacco Use Smoking status: Never Smokeless tobacco: Never Vaping Use Vaping Use: Never used Substance and Sexual Activity Alcohol use: No Drug use: No Sexual activity: Yes Partners: Male ALLERGIES Allergen Reactions Cipro [Ciprofloxaci* rash with 500mg dose Penicillins rash Review of Systems Constitutiona (more content not included)... Normal [facility] HIGH SENSITIVITY TROPONIN T (INITIAL)on 06-08-2023 Troponin T.cardiac High sensitivity method [Mass/Vol] 1046 ng/L High <12 [facility] Comment on above: Order Comment: Jody fairbanks Type: BLOOD SPECIMEN Ordering Facility: [facility] Address: [address] [place] [address] Result Comment: When assessing risk for acute coronary syndromes: In patients undergoing blood draw greater than or equal to 2 hours from symptom onset, with history of very low to moderate risk and non-ischemic ECG, an initial hs-Troponin T less than 12 ng/L AND a 1 hour delta hs-Troponin T less than 3 ng/L should be considered very low risk for 30 day MACE. Performed By: #### L [id number] #### [facility] CLIA [id number] [address] [place] [address] [place] [facility] HIGH SENSITIVITY TROPONIN T (SECOND)on 06-08-2023 Troponin T.cardiac High sensitivity method [Mass/Vol] 910 ng/L High <12 [facility] Comment on above: Order Comment: Jody fairbanks Type: BLOOD SPECIMEN Ordering Facility: [facility] Address: [address] [id number] Result Comment: When assessing risk for acute coronary syndromes: In patients undergoing blood draw greater than or equal to 2 hours from symptom onset, with history of very low to moderate risk and non-ischemic ECG, an initial hs-Troponin T less than 12 ng/L AND a 1 hour delta hs-Troponin T less than 3 ng/L should be considered very low risk for 30 day MACE. Performed By: #### L [id number] #### [facility] CLIA [id number] [address] [id number] [place] HIGH SENSITIVITY TROPONIN T (THIRD) 3 HRS AFTER INITIALon 06-08-2023 Troponin T.cardiac High sensitivity method [Mass/Vol] 910 ng/L High <12 [facility] Comment on above: Order Comment: Jody fairbanks Type: BLOOD SPECIMEN Ordering Facility: [facility] Address: [address] [place] [address] Result Comment: When assessing risk for acute coronary syndromes: In patients undergoing blood draw greater than or equal to 2 hours from symptom onset, with history of very low to moderate risk and non-ischemic ECG, an initial hs-Troponin T less than 12 ng/L AND a 1 hour delta hs-Troponin T less than 3 ng/L should be considered very low risk for 30 day MACE. Performed By: #### L [id number] #### [facility] CLIA [id number] [address] [place] [address] [place] Lactate (Bld) [Moles/Vol]on 06-08-2023 Lactate [Moles/Vol] 2.3 mmol/L High 0.5-2.2 [facility] Comment on above: Order Comment: Jody fairbanks Type: BLOOD SPECIMEN Ordering Facility: [facility] Address: [address] [place] [address] Performed By: #### 3 2693-4 #### [facility] CLIA [id number] [address] [place] [address] [place] Lactate [Moles/Vol] 2.6 mmol/L High 0.5-2.2 [facility] Comment on above: Order Comment: Jody fairbanks Type: BLOOD SPECIMEN Ordering Facility: [facility] Address: [address] [place] [address] Performed By: #### 2 885-2 #### [facility] [place] [id number] [address] [place] [address] [place] Lipase SerPl-cCncon 06-08-19 24 Lipase [Catalytic activity/Vol] 16 U/L Normal 16-61 [facility] Comment on above: Order Comment: Speci men Type: URINE SPECIMEN Ordering Facility: [facility] Address: [address] [place] [address] Performed By: #### U RMPA #### [facility] [place] [id number] [address] [place] [address] [place] Magnesium SerPl-mCncon 06-07 Magnesium [Mass/Vol] 2.0 mg/dL Normal 1.7-2.3 [facility] Comment on above: Order Comment: Speci men Type: URINE SPECIMEN Ordering Facility: [facility] Address: [address] [place] [address] Performed By: #### U RMPA #### [facility] [place] [id number] [address] [place] [address] [place] NT-proBNP SerPl-mCncon 06-07 Natriuretic peptide.B prohormone N-Terminal [Mass/Vol] 4902 pg/mL High <450 [facility] Comment on above: Order Comment: Speci men Type: URINE SPECIMEN Ordering Facility: [facility] Address: [address] [place] [address] Performed By: #### U RMPA #### [facility] [place] [id number] [address] [place] [address] [place] PT panel Coag (PPP)on 2023 INR Coag (PPP) [Relative time] 2.9 {INR} High 0.9-1.3 [facility] Comment on above: Order Comment: Speci men Type: BLOOD SPECIMEN Ordering Facility: [facility] Address: [address] [place] [address] Result Comment: Saray min K Antagonist (VKA) Therapeutic Range: INR 2 to 3 (Target INR of 2.5) Note: For patients treated with VKA drugs, such as warfarin, the [place] [employer] 2012 Guideline recommends a therapeutic INR range of 2 to 3 (target INR of 2.5). This recommendation includes high-risk patients with antiphospholipid syndrome with previous arterial or venous thromboembolism, current-generation mechanical or bioprosthetic aortic heart valve replacement. Note: Patients with mechanical aortic valve replacement and additional risk factors for thromboembolic events (atrial fibrillation, previous thromboembolism, LV dysfunction, hypercoagulable conditions) or an older generation mechanical AVR (i.e., ball in-Cage) or any mechanical MVR should have a INR therapeutic range of 2.5 to 3.5 (target INR of 3). Lindsey BECKWITH, et al. Chest 2012, 141:7S-47S Bandar RA et al. JAC 2017, 70: 252-289 Performed By: #### 3 2693-4 #### [facility] CLIA [id number] [address] [place] [address] [place] [facility] PT Coag (PPP) [Time] 28.2 s High <13.1 [facility] Comment on above: Order Comment: Jody fairbanks Type: BLOOD SPECIMEN Ordering Facility: [facility] Address: [address] [place] [address] Performed By: #### 3 2693-4 #### [facility] CLIA [id number] [address] [place] [address] [facility] Urinalysis complete panel (U )on 06-08-2023 Bacteria LM.HPF (Urine sed) [#/Area] Many Abnormal None Seen [facility] Comment on above: Order Comment: Jody fairbanks Type: URINE SPECIMENOrdering Facility: [facility] Address: [address] [place] [address] Performed By: #### 2 4356-8 ####[facility]IA [id number] [place] [address] [place] [facility] [id number] [place] [address] [place] Bilirubin Ql (U) Negative Normal Negative [facility] Comment on above: Order Comment: Speci men Type: URINE SPECIMENOrdering Facility: [facility] Address: [address] [place] [address] Performed By: #### 2 4356-8 ####[facility]CLIA [id number] [place] [address] [facility]ATORYCLIA [id number] [place] [address] [place] Clarity (Unsp spec) Cloudy Abnormal Clear [facility] Comment on above: Order Comment: Speci men Type: URINE SPECIMENOrdering Facility: [facility] Address: [address] [place] [address] Performed By: #### 2 4356-8 ####[facility] LABCLIA [id number] [place] [address] [facility]ORY[facility] [id number] [place] [address] [place] Color (U) Yellow Normal Yellow [facility] Comment on above: Order Comment: Speci men Type: URINE SPECIMENOrdering Facility: [facility] Address: [address] [place] [address] Performed By: #### 2 4356-8 ####[facility] LABCLIA [id number] [place] [address] [facility] LABORATORYCLIA [id number] [address] [place] Epithelial cells LM.HPF (Urine sed) [#/Area] Few Normal [facility] Comment on above: Order Comment: Speci men Type: URINE SPECIMENOrdering Facility: [facility] Address: [address] [place] [address] Result Comment: Few Performed By: #### 2 4356-8 ####[facility] [place] LABCLIA [id number] [place] [address] [facility] LABORATORYCLIA [id number] [place] [address] [place] Glucose Test strip (U) [Mass/Vol] Negative Normal Negative [facility] Comment on above: Order Comment: Speci men Type: URINE SPECIMENOrdering Facility: [facility] Address: [address] [place] [address] Performed By: #### 2 4356-8 ####[facility] LABCLIA [id number] [place] [address] [facility] LABORATORYCLIA [id number] [place] [address] [place] Hemoglobin Ql (U) 1+ Abnormal Negative [facility] Comment on above: Order Comment: Speci men Type: URINE SPECIMENOrdering Facility: [facility] Address: [address] [place] [address] Performed By: #### 2 4356-8 ####[facility] LABCLIA [id number] [place] [address] [facility] LABORATORYCLIA [id number] [place] [address] [place] Ketones Ql (U) Negative Normal Negative [facility] Comment on above: Order Comment: Speci men Type: URINE SPECIMENOrdering Facility: [facility] Address: [address] [place] [address] Performed By: #### 2 4356-8 ####[facility] LABCLIA [id number] [place] [address] [facility] LABORATORYCLIA [id number] [place] [address] [place] Leukocyte esterase Test strip Ql (U) 3+ Abnormal Negative [facility] Comment on above: Order Comment: Speci men Type: URINE SPECIMENOrdering Facility: [facility] Address: [address] [place] [address] Performed By: #### 2 4356-8 ####[facility] LABCLIA [id number] [place] [address] [facility] LABORATORYCLIA [id number] [place] [address] [place] Nitrite Ql (U) Positive Abnormal Negative [facility] Comment on above: Order Comment: Speci men Type: URINE SPECIMENOrdering Facility: [facility] Address: [address] [place] [address] Performed By: #### 2 4356-8 ####[facility] LABCLIA [id number] [address] LABORATORYCLIA [id number] [place] [address] [place] pH (U) 6.5 [pH] Normal 5.0-8.0 [facility] Comment on above: Order Comment: Speci men Type: URINE SPECIMENOrdering Facility: [facility] Address: [address] [place] [address] Performed By: #### 2 4356-8 ####[facility] LABCLIA [id number] [address] [facility] LABORATORYCLIA [id number] [place] [address] [place] Protein (U) [Mass/Vol] Trace Abnormal Negative [facility] Comment on above: Order Comment: Speci men Type: URINE SPECIMENOrdering Facility: [facility] Address: [address] [place] [address] Performed By: #### 2 4356-8 ####[facility] LABCLIA [id number] [address] [facility] LABORATORYCLIA [id number] [place] [address] [place] RBC LM.HPF (Urine sed) [#/Area] 0-3 /HPF Normal 0-3 /HPF [facility] Comment on above: Order Comment: Speci men Type: URINE SPECIMENOrdering Facility: [facility] Address: [address] [place] [address] Performed By: #### 2 4356-8 ####[facility] LABCLIA [id number] [address] LABORATORYCLIA [id number] [address] Specific gravity (U) [Rel density] 1.020 Normal 1.005-1.030 [facility] Comment on above: Order Comment: Speci men Type: URINE SPECIMENOrdering Facility: [facility] Address: [address] [place] [address] Performed By: #### 2 4356-8 ####[facility] LABCLIA [id number] [address] LABORATORYCLIA [id number] [place] [address] Urobilinogen Ql (U) 0.2 EU/dL Normal 0.2-1.0 EU/dL [facility] Comment on above: Order Comment: Speci men Type: URINE SPECIMENOrdering Facility: [facility] Address: [address] [place] [address] Performed By: #### 2 4356-8 ####[facility] LABCLIA [id number] [address] LABORATORYCLIA [id number] [place] [address] WBC LM.HPF (Urine sed) [#/Area] /[HPF] Abnormal 0-5 /HPF [facility] Comment on above: Order Comment: Speci men Type: URINE SPECIMENOrdering Facility: [facility] Address: [address] [place] [address] Performed By: #### 2 4356-8 ####[facility] LABCLIA [id number] [address] LABORATORYCLIA [id number] [place] [address] Urinalysis complete pnl Uron 06-08-2023 Urinalysis complete panel (U) COLOR: Yellow CLARITY: Cloudy GLUCOSE, URINE: Negative BILIRUBIN, URINE: Negative KETONES, URINE: Negative SPECIFIC GRAVITY, UR: 1.020 HEMOGLOBIN/BLOOD, UR: 1+ PH, URINE: 6.5 PROTEIN, URINE: Trace UROBILINOGEN: 0.2 EU/dL NITRITES: Positive LEUKEST: 3+ WBC, URINE: >25 /HPF RBC, URINE: 0-3 /HPF BACTERIA: Many SQUAMOUS EPITHELIAL CELLS: Few Few ORGANISM ID: 1 >=100,000 CFU/ml Escherichia coli ORGANISM ID: 1 (ESCHERICHIA COLI) ANTIBIOTIC INTERPRETATION EMILIA STATUS REFERENCE RANGE Ampicillin S <=4 F Susceptible <=8 , Intermediate >8 , Resistant >16 Cefazolin S <=1 F Susceptible 0-16 , Intermediate <0 or >16 , Resistant >16 For uncomplicated urinary tract infections, cefazolin results can be used to predict susceptibility or resistance to cephalexin. Ceftriaxone S <=1 F Susceptible <=1 , Intermediate >1 , Resistant >=4 Cefepime S <=1 F Susceptible <=2 , Susceptible-Dose Dependent >2 , Resistant >=16 Ertapenem S <=0.25 F Susceptible <=0.5 , Intermediate >.5 , Resistant >1 Meropenem S <=0.5 F Susceptible <=1 , Intermediate >1 , Resistant >2 Aztreonam S <=2 F Susceptible <=4 , Intermediate >4 , Resistant >=16 Ampicillin/Sulbact S 2 F Piperacillin/Tazobac S <=2 F Gentamicin S <=2 F Susceptible <=4 , Intermediate >4 , Resistant >8 Trimeth sulfameth S <=0.5 F Ciprofloxacin S <=0.25 F Susceptible <0.5 , Intermediate >=.5 , Resistant >=1 Nitrofurantoin S <=16 F Susceptible <=32 , Intermediate >32 , Resistant >64 Abnormal [facility] Comment on above: Order Comment: Speci men Type: URINE SPECIMENOrdering Facility: [facility] Address: [address] [place] [address] Performed By: #### 2 4356-8 ####[facility] LABCLIA [id number] [place] [address] [facility] LABORATORYCLIA [id number] [place] [address] [facility] XR CHEST 1V FRONTALon 2023 XR CHEST 1V FRONTAL * * *Final Report* * * DATE OF EXAM: Jun 08 2023 3:42PM LDX 5290 - XR CHEST 1V FRONTAL / PROCEDURE REASON: Chest pain * * * * Physician Interpretation * * * * EXAMINATION: CHEST RADIOGRAPH (SINGLE VIEW AP OR PA) CLINICAL HISTORY: Chest pain MQ: XC1_5 Comparison: Chest x-ray June 12, 2017 RESULT: Lines, tubes, and devices: None. Lungs and pleura: No pneumothorax, pleural effusion or consolidation. There is a 2 cm nodular density profiling the right lower lung. Cardiomediastinal silhouette: Normal cardiomediastinal silhouette. Other: No bony abnormalities. IMPRESSION: There is a 2.1 cm nodular density profiling the right lower lung. Recommend further evaluation with chest CT. Incidental Finding: Follow-up Acuity: Incidental Finding: Suspicious appearing incidentally detected nodular lung density on CXR Routing Code: RI_1 Recommendation: CT Chest WO IVCON Time Frame: in 4 weeks COMMUNICATION:? Results will be communicated with the ordering provider via [employer] staff message by [employer] within 2 business days of report finalization. Corporation Lawyer: PSCB Transcribe Date/Time: Jun 08 2023 3:54P Dictated by : SARAH CARTWRIGHT MD This examination was interpreted and the report reviewed and electronically signed by: SARAH CARTWRIGHT MD on Jun 08 2023 3:56PM EST [id number] ACTIONABLE Invalid Interpretation Code [facility] aPTT PPPon 06-08-2023 aPTT Coag (PPP) [Time] 37.9 s High 23.0-32.4 [facility] Comment on above: Order Comment: Mistyi men Type: BLOOD SPECIMEN [facility] Address: [address] [place] [address] Performed By: #### 3 2693-4 #### [facility] LAB CLIA [id number] [address] [place] [address] [facility] Capillary blood internationa l normalized ratio (INR)Ordered By: Shameka Velasquez on 05-31-2023 INR Coag (BldC) [Relative time] 2.1 [facility] Comment on above: Critical Value > 4.0 Whole blood prothrombin time Ordered By: Shameka Velasquez on 05-31-2023 PT Coag (Bld) [Time] 22.2 s 11.7-14.9 [facility] 1,25-dihydroxyvitamin D3 [Ma ss/Vol]on 05-26-2023 Interpretation and review of laboratory results Abnormal [facility] Basic metabolic 2000 panelon 05-26-2023 Anion gap [Moles/Vol] 11 mmol/L 10 - 2 0 mmol/L [facility] Calcium [Mass/Vol] 8.6 mg/dL 8.6 - 10. 3 mg/dL [facility] Chloride [Moles/Vol] 112 mmol/L High 98 - 10 7 mmol/L [facility] CO2 [Moles/Vol] 22 mmol/L 21 - 32 mmol/L [facility] Creatinine [Mass/Vol] 1.60 mg/dL High 0.50 - 1.05 mg/dL [facility] GFR/1.73 sq M.predicted among non-blacks MDRD (S/P/Bld) [Vol rate/Area] 32 mL/min/{1.73_m2} Low - PINF [facility] Comment on above: Calculations of marisabel mated GFR are performed using the 2020 CKD-EPI Study Refit equation without the race variable for the IDMS-Traceable creatinine methods. https://jasn.asnjournals.org/content/early/ASN.84284 69966 Glucose [Mass/Vol] 84 mg/dL 74 - 99 mg/dL [facility] Interpretation and review of laboratory results Abnormal [facility] Potassium [Moles/Vol] 4.3 mmol/L 3.5 - 5.3 mmol/L [facility] Sodium [Moles/Vol] 141 mmol/L 136 - 145 mmol/L [facility] Urea nitrogen [Mass/Vol] 25 mg/dL High 6 - 23 mg/dL [facility] Anion gap [Moles/Vol] 11 mmol/L Normal 10-20 [facility] Comment on above: Performed By: #### 1 994-3 #### THELMA DENNISON ([id number]) [facility] ([facility]) [address] [place] [address] Calcium [Mass/Vol] 8.6 mg/dL Normal 8.6-10.3 [facility] Comment on above: Performed By: #### 1 994-3 #### THELMA DENNISON ([id number]) [facility] ([facility]) [address] [place] [address] Chloride [Moles/Vol] 112 mmol/L High 98-107 [facility] Comment on above: Performed By: #### 1 994-3 #### THELMA DENNISON ([id number]) [facility] ([facility]) [address] [place] [address] 04631 CO2 [Moles/Vol] 22 mmol/L Normal 21-32 [facility] Comment on above: Performed By: #### 1 994-3 #### THELMA DENNISON ([id number]) [facility] ([facility]) [address] [place] [address] 76175 Creatinine [Mass/Vol] 1.60 mg/dL High 0.50-1.05 [facility] Comment on above: Performed By: #### 1 994-3 #### THELMA DENNISON ([id number]) [facility] ([facility]) [address] [place] [address] 31905 Glomerular filtration rate/1.73 sq M.predicted 32 mL/min/1.73m*2 Low >60 [facility] Comment on above: Result Comment: Calc ulations of estimated GFR are performed using the 2020 CKD-EPI Study Refit equation without the race variable for the IDMS-Traceable creatinine methods. https://jasn.asnjournals.org/content//ASN.84159 66750 Performed By: #### 1 994-3 #### THELMA DENNISON ([id number]) [facility] ([facility]) [address] [place] [address] 42035 Glucose [Mass/Vol] 84 mg/dL Normal 74-99 [facility] Comment on above: Performed By: #### 1 994-3 #### THELMA DENNISON ([id number]) [facility] ([facility]) [address] [place] [address] 94871 Potassium [Moles/Vol] 4.3 mmol/L Normal 3.5-5.3 [facility] Comment on above: Performed By: #### 1 994-3 #### THELMA DENNISON ([id number]) [facility] ([facility]) [address] [place] [address] 91299 Sodium [Moles/Vol] 141 mmol/L Normal 136-145 [facility] Comment on above: Performed By: #### 1 994-3 #### THELMA DENNISON ([id number]) [facility]) [address] [place] [address] 27819 Urea nitrogen [Mass/Vol] 25 mg/dL High 6-23 [facility] Comment on above: Performed By: #### 1 994-3 #### THELMA DENNISON ([id number]) [facility]) [address] [place] [address] 63563 CBC panel Auto (Bld)on 05-25 Erythrocyte distribution width (RBC) [Ratio] 14.5 % 11.5 - 14.5 % [facility] Hematocrit (Bld) [Volume fraction] 41.0 % 36.0 - 46.0 % [facility] Hemoglobin (Bld) [Mass/Vol] 13.4 g/dL 12.0 - 16.0 g/dL [facility] Interpretation and review of laboratory results Abnormal [facility] MCH (RBC) [Entitic mass] 29.4 pg 26.0 - 34.0 pg [facility] MCHC (RBC) [Mass/Vol] 32.7 g/dL 32.0 - 36.0 g/dL [facility] MCV (RBC) [Entitic vol] 90 fL 80 - 100 fL [facility] Nucleated RBC/100 WBC (Bld) [Ratio] 0.0 % [facility] Platelets (Bld) [#/Vol] 251 10*3/uL [facility] RBC (Bld) [#/Vol] 4.56 10*6/uL [facility] WBC (Bld) [#/Vol] 12.9 10*3/uL High [facility] Erythrocyte distribution width (RBC) [Ratio] 14.5 % Normal 11.5-14.5 [facility] Comment on above: Performed By: #### 3 4529-8 #### THELMA DENNISON ([id number]) [facility]) [address] [place] [address] 06768 Hematocrit (Bld) [Volume fraction] 41.0 % Normal 36.0-46.0 [facility] Comment on above: Performed By: #### 3 4529-8 #### THELMA DENNISON ([id number]) [facility]) [address] [place] [address] Hemoglobin (Bld) [Mass/Vol] 13.4 g/dL Normal 12.0-16.0 [facility] Comment on above: Performed By: #### 3 4529-8 #### THELMA DENNISON ([id number]) [facility]) [address] [place] [address] 91190 MCH (RBC) [Entitic mass] 29.4 pg Normal 26.0-34.0 [facility] Comment on above: Performed By: #### 3 4529-8 #### THELMA DENNISON ([id number]) [facility]) [address] [place] [address] 70785 MCHC (RBC) [Mass/Vol] 32.7 g/dL Normal 32.0-36.0 [facility] Comment on above: Performed By: #### 3 4529-8 #### THELMA DENNISON ([id number]) [facility] ([facility]) [address] [place] [address] 16535 MCV (RBC) [Entitic vol] 90 fL Normal 80-100 [facility] Comment on above: Performed By: #### 3 4529-8 #### THELMA DENNISON ([id number]) [facility] ([facility]) [address] [place] [address] 74875 Nucleated RBC/100 WBC (Bld) [Ratio] 0.0 /100 WBCs Normal 0.0-0.0 [facility] Comment on above: Performed By: #### 3 4529-8 #### THELMA DENNISON ([id number]) [facility] ([facility]) [address] [place] [address] 16877 Platelets (Bld) [#/Vol] 251 x10*3/uL Normal 150-450 [facility] Comment on above: Performed By: #### 3 4529-8 #### THELMA DENNISON ([id number]) [facility]) [address] [place] [address] 38165 RBC (Bld) [#/Vol] 4.56 x10*6/uL Normal 4.00-5.20 [facility] Comment on above: Performed By: #### 3 4529-8 #### THELMA DENNISON ([id number]) [facility]) [address] [place] [address] 41001 WBC (Bld) [#/Vol] 12.9 x10*3/uL High 4.4-11.3 [facility] Comment on above: Performed By: #### 3 4529-8 #### THELMA DENNISON ([id number]) [facility]) [address] [place] [address] 08911 Coagulation tissue factor in ducedon 05-26-2023 PT Coag (PPP) [Time] 22.7 s High 9.8-12.8 [facility] Comment on above: Performed By: #### 3 4529-8 #### THELMA DENNISON ([id number]) [facility]) [address] [place] [address] No Panel Informationon 05-25 Extra Tube Hold for add-ons. [facility] Comment on above: Auto resulted. [facility] PT Coag (PPP) [Time]on 05-25 INR Coag (PPP) [Relative time] 2.0 High 0.9-1.1 [facility] Comment on above: Performed By: #### 3 4529-8 #### THELMA DENNISON ([id number]) [facility]) [address] [place] [address] 45818 INR Coag (PPP) [Relative time] 2.0 {INR} High 0.9 - 1.1 [facility] Interpretation and review of laboratory results Abnormal [facility] Protime-INRon 05-26-2023 PT Coag (PPP) [Time] 22.7 s High [facility] Vitamin D 1,25 Dihydroxy (fo r eval of hypercalcemia)on 05-26-2023 1,25-dihydroxyvitamin D3 [Mass/Vol] 179.0 pg/mL High 19.9 - 79.3 pg/mL [facility] Comment on above: INTERPRETIVE INFORMA TION: Vitamin D, 1,25-Dihydroxy This test is primarily indicated during patient evaluation for hypercalcemia and renal failure. A normal result does not rule out Vitamin D deficiency. The recommended test for diagnosing Vitamin D deficiency is Vitamin D 25-hydroxy. Performed By: [facility] [address] [place] [address] Blood Bank Order Control Clerk: Jefferson Kerr MD, PhD CLIA Number: [id number] 25-hydroxyvitamin D3 [Mass/V ol]on 05-25-2023 Interpretation and review of laboratory results Normal [facility] Deficiency: < 20 ng/ ml Insufficiency: 20-29 ng/ml Sufficiency: 30-100 ng/ml This assay accurately quantifies the sum of Vitamin D3, 25-Hydroxy and Vitamin D2,25-Hydroxy. [facility] Basic metabolic 2000 panelon 05-25-2023 Anion gap [Moles/Vol] 11 mmol/L Normal 10-20 [facility] Comment on above: Performed By: #### 3 4529-8 #### THELMA DENNISON ([id number]) [facility]) [address] [place] [address] 81784 Calcium [Mass/Vol] 9.9 mg/dL Normal 8.6-10.3 [facility] Comment on above: Performed By: #### 3 4529-8 #### THELMA DENNISON ([id number]) [facility]) [address] [place] [address] 70708 Chloride [Moles/Vol] 109 mmol/L High 98-107 [facility] Comment on above: Performed By: #### 3 4529-8 #### THELMA DENNISON ([id number]) [facility]) [address] [place] [address] 08708 CO2 [Moles/Vol] 23 mmol/L Normal 21-32 [facility] Comment on above: Performed By: #### 3 4529-8 #### THELMA DENNISON ([id number]) [facility]) [address] [place] [address] 49485 Creatinine [Mass/Vol] 1.80 mg/dL High 0.50-1.05 [facility] Comment on above: Performed By: #### 3 4529-8 #### THELMA DENNISON ([id number]) [facility]) [address] [place] [address] 19092 Glomerular filtration rate/1.73 sq M.predicted 28 mL/min/1.73m*2 Low >60 [facility] Comment on above: Result Comment: Calc ulations of estimated GFR are performed using the 2020 CKD-EPI Study Refit equation without the race variable for the IDMS-Traceable creatinine methods. https://jasn.asnjournals.org/content/early//ASN.76402 64472 Performed By: #### 3 4529-8 #### THELMA DENNISON ([id number]) [facility]) [address] [place] [address] 62330 Glucose [Mass/Vol] 135 mg/dL High 74-99 [facility] Comment on above: Performed By: #### 3 4529-8 #### THELMA DENNISON ([id number]) [facility]) [address] [place] [address] 58494 Potassium [Moles/Vol] 3.7 mmol/L Normal 3.5-5.3 [facility] Comment on above: Performed By: #### 3 4529-8 #### THELMA DENNISON ([id number]) [facility]) [address] [place] [address] 38746 Sodium [Moles/Vol] 139 mmol/L Normal 136-145 [facility] Comment on above: Performed By: #### 3 4529-8 #### THELMA DENNISON ([id number]) [facility]) [address] [place] [address] 81195 Urea nitrogen [Mass/Vol] 33 mg/dL High 6-23 [facility] Comment on above: Performed By: #### 3 4529-8 #### THELMA DENNISON ([id number]) [facility]) [address] [place] [address] 31874 Anion gap [Moles/Vol] 11 mmol/L 10 - 2 0 mmol/L [facility] Calcium [Mass/Vol] 9.9 mg/dL 8.6 - 10. 3 mg/dL [facility] Chloride [Moles/Vol] 109 mmol/L High 98 - 10 7 mmol/L [facility] CO2 [Moles/Vol] 23 mmol/L 21 - 32 mmol/L [facility] Creatinine [Mass/Vol] 1.80 mg/dL High 0.50 - 1.05 mg/dL [facility] GFR/1.73 sq M.predicted among non-blacks MDRD (S/P/Bld) [Vol rate/Area] 28 mL/min/{1.73_m2} Low - PINF [facility] Comment on above: Calculations of marisabel mated GFR are performed using the 2020 CKD-EPI Study Refit equation without the race variable for the IDMS-Traceable creatinine methods. https://jasn.asnjournals.org/content/early/ASN.84395 18168 Glucose [Mass/Vol] 135 mg/dL High 74 - 99 mg/dL [facility] Interpretation and review of laboratory results Abnormal [facility] Potassium [Moles/Vol] 3.7 mmol/L 3.5 - 5.3 mmol/L [facility] Sodium [Moles/Vol] 139 mmol/L 136 - 145 mmol/L [facility] Urea nitrogen [Mass/Vol] 33 mg/dL High 6 - 23 mg/dL [facility] Calcidiolon 05-25-2023 25-hydroxyvitamin D3 [Mass/Vol] 45 ng/mL Normal 30-100 [facility] Comment on above: Order Comment: The A PTT is no longer used for monitoring Unfractionated Heparin Therapy. For monitoring Heparin Therapy, use the Heparin Assay. Performed By: #### 3 4529-8 #### THELMA DENNISON ([id number]) [facility]) [address] [place] [address] 29922 Calcium, ionizedon Calcium.ionized (Bld) [Moles/Vol] 1.32 mmol/L 1.1 - 1.33 mmol/L [facility] Comment on above: The performance domi acteristics of ionized calcium tested in heparinized plasma or serum have been validated by the individual laboratory site where testing is performed. Testing on heparinized plasma or serum is not approved by the FDA; however, such approval is not necessary. Calcium.ionizedon 05-25-2023 Calcium.ionized (Bld) [Moles/Vol] 1.32 mmol/L Normal 1.1-1.33 [facility] Comment on above: Result Comment: The performance characteristics of ionized calcium tested in heparinized plasma or serum have been validated by the individual laboratory site where testing is performed. Testing on heparinized plasma or serum is not approved by the FDA; however, such approval is not necessary. Performed By: #### 3 4529-8 #### THELMA DENNISON ([id number]) [facility] ([facility]) [address] [place] [address] 78927 Calcium.ionized (Bld) [Moles /Vol]on 05-25-2023 Interpretation and review of laboratory results Normal [facility] Coagulation tissue factor in ducedon 05-25-2023 PT Coag (PPP) [Time] 23.0 s High 9.8-12.8 [facility] Comment on above: Performed By: #### 3 4529-8 #### THELMA DENNISON ([id number]) [facility] ([facility]) [address] [place] [address] 60018 HbA1c (Bld) [Mass fraction]o n 05-25-2023 Average glucose Estimated from glycated hemoglobin (Bld) [Mass/Vol] 105 mg/dL Not Established [facility] Diagnosis of Diabetes-Adults Non-Diabetic: < or = 5.6% Increased risk for developing diabetes: 5.7-6.4% Diagnostic of diabetes: > or = 6.5% Monitoring of Diabetes Age (y)..................... .. Therapeutic Goal (%) Adults: >18..................... ....<7.0 Pediatrics: 13-18................... <7.5 Pediatrics: 7-12.................... <8.0 Pediatrics: 0-6..................... 7.5-8.5 [employer] [employer]. Diabetes Care 33(S1), Feb 2009 [facility] Average glucose Estimated from glycated hemoglobin (Bld) [Mass/Vol] 105 mg/dL Normal Not Established [facility] Comment on above: Order Comment: The A PTT is no longer used for monitoring Unfractionated Heparin Therapy. For monitoring Heparin Therapy, use the Heparin Assay. Performed By: #### 3 4529-8 #### THELMA DENNISON ([id number]) [facility] ([facility]) [address] [place] [address] 94547 Hemoglobin A1Con 05-25-2023 HbA1c (Bld) [Mass fraction] 5.3 % see below [facility] Hemoglobin A1c/Hemoglobin.to gage 05-25-2023 HbA1c (Bld) [Mass fraction] 5.3 % Normal see below [facility] Comment on above: Order Comment: The A PTT is no longer used for monitoring Unfractionated Heparin Therapy. For monitoring Heparin Therapy, use the Heparin Assay. Performed By: #### 3 4529-8 #### THELMA DENNISON ([id number]) [facility] ([facility]) [address] [place] [address] 75967 No Panel Informationon 05-24 Extra Tube Hold for add-ons. [facility] Comment on above: Auto resulted. [facility] PT Coag (PPP) [Time]on 05-24 INR Coag (PPP) [Relative time] 2.0 High 0.9-1.1 [facility] Comment on above: Performed By: #### 3 4529-8 #### THELMA DENNISON ([id number]) [facility] ([facility]) [address] [place] [address] 75966 INR Coag (PPP) [Relative time] 2.0 {INR} High 0.9 - 1.1 [facility] Interpretation and review of laboratory results Abnormal [facility] PTH, Intacton 05-25-2023 Parathyrin.intact [Mass/Vol] 16.3 pg/mL Low 18.5 - 88.0 pg/mL [facility] Parathyrin related proteinon 05-25-2023 Parathyrin related protein [Moles/Vol] 1.1 pmol/L Normal < or = 4.2 [facility] Comment on above: Result Comment: ADDITIONAL INFORMATION This test was developed and its performance characteristics determined by [facility] in a manner consistent with CLIA requirements. This test has not been cleared or approved by the U.S. Food and Drug Administration. Test Performed by: [place] [address] Machine Clerical Verifier: Sunny Triplett M.D. Ph.D.; CLIA# [id number] Performed By: #### 1 994-3 #### THELMA DENNISON ([id number]) [facility] ([facility]) [address] [place] [address] 64777 Parathyrin.intacton 05-25-19 24 Parathyrin.intact [Mass/Vol] 16.3 pg/mL Low 18.5-88.0 [facility] Comment on above: Performed By: #### 3 4529-8 #### THELMA DENNISON ([id number]) [facility] ([facility]) [address] [place] [address] 38695 Parathyrin.intact [Mass/Vol] on 05-25-2023 Interpretation and review of laboratory results Abnormal [facility] Phosphateon 05-25-2023 Phosphate [Mass/Vol] 3.2 mg/dL Normal 2.5-4.9 [facility] Comment on above: Result Comment: The performance characteristics of phosphorus testing in heparinized plasma have been validated by the individual laboratory site where testing is performed. Testing on heparinized plasma is not approved by the FDA; however, such approval is not necessary. Performed By: #### 3 4529-8 #### THELMA DENNISON ([id number]) [facility] ([facility]) [address] [place] [address] 95458 Phosphate [Mass/Vol]on 05-24 Interpretation and review of laboratory results Normal [facility] Phosphoruson 05-25-2023 Phosphate [Mass/Vol] 3.2 mg/dL 2.5 - 4 .9 mg/dL [facility] Comment on above: The performance domi acteristics of phosphorus testing in heparinized plasma have been validated by the individual laboratory site where testing is performed. Testing on heparinized plasma is not approved by the FDA; however, such approval is not necessary. Protime-INRon 05-25-2023 PT Coag (PPP) [Time] 23.0 s [facility] Vitamin D 25-Hydroxy,Total ( for eval of Vitamin D levels)on 05-25-2023 25-hydroxyvitamin D3 [Mass/Vol] 45 ng/mL 30 - 100 ng/mL [facility] CBC W Auto Differential pane l (Bld)on 05-24-2023 Basophils (Bld) [#/Vol] 0.06 x10*3/uL Normal 0.00-0.10 [facility] Comment on above: Performed By: #### 5 7021-8 #### THELMA DENNISON ([id number]) [facility] ([facility]) [address] [place] [address] 92742 Basophils/100 WBC (Bld) 0.6 % Normal 0.0-2.0 [facility] Comment on above: Performed By: #### 5 7021-8 #### THELMA DENNISON ([id number]) [facility] ([facility]) [address] [place] [address] 66892 Eosinophils (Bld) [#/Vol] 1.08 x10*3/uL High 0.00-0.40 [facility] Comment on above: Performed By: #### 5 7021-8 #### THELMA DENNISON ([id number]) [facility] ([facility]) [address] [place] [address] 17617 Eosinophils/100 WBC (Bld) 11.2 % Normal 0.0-6.0 [facility] Comment on above: Performed By: #### 5 7021-8 #### THELMA DENNISON ([id number]) [facility] ([facility]) [address] [place] [address] 70121 Erythrocyte distribution width (RBC) [Ratio] 14.2 % Normal 11.5-14.5 [facility] Comment on above: Performed By: #### 5 7021-8 #### THELMA DENNISON ([id number]) [facility] ([facility]) [address] [place] [address] 17285 Hematocrit (Bld) [Volume fraction] 39.8 % Normal 36.0-46.0 [facility] Comment on above: Performed By: #### 5 7021-8 #### THELMA DENNISON ([id number]) [facility] ([facility]) [address] [place] [address] 96025 Hemoglobin (Bld) [Mass/Vol] 13.5 g/dL Normal 12.0-16.0 [facility] Comment on above: Performed By: #### 5 7021-8 #### THELMA DENNISON ([id number]) [facility] ([facility]) [address] [place] [address] 85563 Immature granulocytes (Bld) [#/Vol] 0.09 x10*3/uL Normal 0.00-0.50 [facility] Comment on above: Performed By: #### 5 7021-8 #### THELMA DENNISON ([id number]) [facility] ([facility]) [address] [place] [address] 85836 Immature granulocytes/100 WBC (Bld) 0.9 % Normal 0.0-0.9 [facility] Comment on above: Result Comment: Linda ture Granulocyte Count (IG) includes promyelocytes, myelocytes and metamyelocytes but does not include bands. Percent differential counts (%) should be interpreted in the context of the absolute cell counts (cells/UL). Performed By: #### 5 7021-8 #### THELMA DENNISON ([id number]) [facility] ([facility]) [address] [place] [address] 72597 Lymphocytes (Bld) [#/Vol] 1.90 x10*3/uL Normal 0.80-3.00 [facility] Comment on above: Performed By: #### 5 7021-8 #### THELMA DENNISON ([id number]) [facility] ([facility]) [address] [place] [address] 68628 Lymphocytes/100 WBC (Bld) 19.8 % Normal 13.0-44.0 [facility] Comment on above: Performed By: #### 5 7021-8 #### THELMA DENNISON ([id number]) [facility] ([facility]) [address] [place] [address] 97565 MCH (RBC) [Entitic mass] 29.3 pg Normal 26.0-34.0 [facility] Comment on above: Performed By: #### 5 7021-8 #### THELMA DENNISON ([id number]) [facility] ([facility]) [address] [place] [address] 97120 MCHC (RBC) [Mass/Vol] 33.9 g/dL Normal 32.0-36.0 [facility] Comment on above: Performed By: #### 5 7021-8 #### THELMA DENNISON ([id number]) [facility] ([facility]) [address] [place] [address] 91927 MCV (RBC) [Entitic vol] 86 fL Normal 80-100 [facility] Comment on above: Performed By: #### 5 7021-8 #### THELMA DENNISON ([id number]) [facility] ([facility]) [address] [place] [address] 61537 Monocytes (Bld) [#/Vol] 0.96 x10*3/uL High 0.05-0.80 [facility] Comment on above: Performed By: #### 5 7021-8 #### THELMA DENNISON ([id number]) [facility] ([facility]) [address] [place] [address] 75361 Monocytes/100 WBC (Bld) 10.0 % Normal 2.0-10.0 [facility] Comment on above: Performed By: #### 5 7021-8 #### THELMA DENNISON ([id number]) [facility] ([facility]) [address] [place] [address] 55371 Neutrophils (Bld) [#/Vol] 5.52 x10*3/uL High 1.60-5.50 [facility] Comment on above: Result Comment: Perc ent differential counts (%) should be interpreted in the context of the absolute cell counts (cells/uL). Performed By: #### 5 7021-8 #### THELMA DENNISON ([id number]) [facility] ([facility]) [address] [place] [address] 11873 Neutrophils/100 WBC (Bld) 57.5 % Normal 40.0-80.0 [facility] Comment on above: Performed By: #### 5 7021-8 #### THELMA DENNISON ([id number]) [facility] ([facility]) [address] [place] [address] 25128 Nucleated RBC/100 WBC (Bld) [Ratio] 0.0 /100 WBCs Normal 0.0-0.0 [facility] Comment on above: Performed By: #### 5 7021-8 #### THELMA DENNISON ([id number]) [facility] ([facility]) [address] [place] [address] 59620 Platelets (Bld) [#/Vol] 249 x10*3/uL Normal 150-450 [facility] Comment on above: Performed By: #### 5 7021-8 #### THELMA DENNISON ([id number]) [facility] ([facility]) [address] [place] [address] 88068 RBC (Bld) [#/Vol] 4.61 x10*6/uL Normal 4.00-5.20 [facility] Comment on above: Performed By: #### 5 7021-8 #### THELMA DENNISON ([id number]) [facility] ([facility]) [address] [place] [address] WBC (Bld) [#/Vol] 9.6 x10*3/uL Normal 4.4-11.3 [facility] Comment on above: Performed By: #### 5 7021-8 #### THELMA DENNISON ([id number]) [facility] ([facility]) [address] [place] [address] Basophils (Bld) [#/Vol] 0.06 10*3/uL [facility] Basophils/100 WBC (Bld) 0.6 % 0.0 - 2.0 % [facility] Eosinophils (Bld) [#/Vol] 1.08 10*3/uL High [facility] Eosinophils/100 WBC (Bld) 11.2 % 0.0 - 6.0 % [facility] Erythrocyte distribution width (RBC) [Ratio] 14.2 % 11.5 - 14.5 % [facility] Hematocrit (Bld) [Volume fraction] 39.8 % 36.0 - 46.0 % [facility] Hemoglobin (Bld) [Mass/Vol] 13.5 g/dL 12.0 - 16.0 g/dL [facility] Immature granulocytes (Bld) [#/Vol] 0.09 10*3/uL [facility] Immature granulocytes/100 WBC (Bld) 0.9 % 0.0 - 0.9 % [facility] Comment on above: Immature Granulocyte Count (IG) includes promyelocytes, myelocytes and metamyelocytes but does not include bands. Percent differential counts (%) should be interpreted in the context of the absolute cell counts (cells/UL). Interpretation and review of laboratory results Abnormal [facility] Lymphocytes (Bld) [#/Vol] 1.90 10*3/uL [facility] Lymphocytes/100 WBC (Bld) 19.8 % 13.0 - 44.0 % [facility] MCH (RBC) [Entitic mass] 29.3 pg 26.0 - 34.0 pg [facility] MCHC (RBC) [Mass/Vol] 33.9 g/dL 32.0 - 36.0 g/dL [facility] MCV (RBC) [Entitic vol] 86 fL 80 - 100 fL [facility] Monocytes (Bld) [#/Vol] 0.96 10*3/uL High [facility] Monocytes/100 WBC (Bld) 10.0 % 2.0 - 10.0 % [facility] Neutrophils (Bld) [#/Vol] 5.52 10*3/uL High [facility] Comment on above: Percent differential counts (%) should be interpreted in the context of the absolute cell counts (cells/uL). Neutrophils/100 WBC (Bld) 57.5 % 40.0 - 80.0 % [facility] Nucleated RBC/100 WBC (Bld) [Ratio] 0.0 % [facility] Platelets (Bld) [#/Vol] 249 10*3/uL [facility] RBC (Bld) [#/Vol] 4.61 10*6/uL [facility] WBC (Bld) [#/Vol] 9.6 10*3/uL [facility] Basophils (Bld) [#/Vol] 0.07 x10*3/uL Normal 0.00-0.10 [facility] Comment on above: Performed By: #### 5 7021-8 #### THELMA DENNISON ([id number]) [facility] ([facility]) [address] [place] [address] Basophils/100 WBC (Bld) 0.8 % Normal 0.0-2.0 [facility] Comment on above: Performed By: #### 5 7021-8 #### THELMA DENNISON ([id number]) [facility] ([facility]) [address] [place] [address] Eosinophils (Bld) [#/Vol] 1.09 x10*3/uL High 0.00-0.40 [facility] Comment on above: Performed By: #### 5 7021-8 #### THELMA DENNISON ([id number]) [facility] ([facility]) [address] [place] [address] 35793 Eosinophils/100 WBC (Bld) 12.0 % Normal 0.0-6.0 [facility] Comment on above: Performed By: #### 5 7021-8 #### THELMA DENNISON ([id number]) [facility] ([facility]) [address] [place] [address] 66159 Erythrocyte distribution width (RBC) [Ratio] 14.1 % Normal 11.5-14.5 [facility] Comment on above: Performed By: #### 5 7021-8 #### THELMA DENNISON ([id number]) [facility] ([facility]) [address] [place] [address] 95573 Hematocrit (Bld) [Volume fraction] 41.4 % Normal 36.0-46.0 [facility] Comment on above: Performed By: #### 5 7021-8 #### THELMA DENNISON ([id number]) [facility] ([facility]) [address] [place] [address] 03009 Hemoglobin (Bld) [Mass/Vol] 14.1 g/dL Normal 12.0-16.0 [facility] Comment on above: Performed By: #### 5 7021-8 #### THELMA DENNISON ([id number]) [facility] ([facility]) [address] [place] [address] 91507 Immature granulocytes (Bld) [#/Vol] 0.12 x10*3/uL Normal 0.00-0.50 [facility] Comment on above: Performed By: #### 5 7021-8 #### THELMA DENNISON ([id number]) [facility] ([facility]) [address] [place] [address] 17780 Immature granulocytes/100 WBC (Bld) 1.3 % High 0.0-0.9 [facility] Comment on above: Result Comment: Linda ture Granulocyte Count (IG) includes promyelocytes, myelocytes and metamyelocytes but does not include bands. Percent differential counts (%) should be interpreted in the context of the absolute cell counts (cells/UL). Performed By: #### 5 7021-8 #### THELMA DENNISON ([id number]) [facility] ([facility]) [address] [place] [address] Lymphocytes (Bld) [#/Vol] 1.88 x10*3/uL Normal 0.80-3.00 [facility] Comment on above: Performed By: #### 5 7021-8 #### THELMA DENNISON ([id number]) [facility] ([facility]) [address] [place] [address] Lymphocytes/100 WBC (Bld) 20.7 % Normal 13.0-44.0 [facility] Comment on above: Performed By: #### 5 7021-8 #### THELMA DENNISON ([id number]) [facility] ([facility]) [address] [place] [address] 05141 MCH (RBC) [Entitic mass] 29.4 pg Normal 26.0-34.0 [facility] Comment on above: Performed By: #### 5 7021-8 #### THELMA DENNISON ([id number]) [facility] ([facility]) [address] [place] [address] 98295 MCHC (RBC) [Mass/Vol] 34.1 g/dL Normal 32.0-36.0 [facility] Comment on above: Performed By: #### 5 7021-8 #### THELMA DENNISON ([id number]) [facility] ([facility]) [address] [place] [address] 89278 MCV (RBC) [Entitic vol] 86 fL Normal 80-100 [facility] Comment on above: Performed By: #### 5 7021-8 #### THELMA DENNISON ([id number]) [facility] ([facility]) [address] [place] [address] 56583 Monocytes (Bld) [#/Vol] 0.87 x10*3/uL High 0.05-0.80 [facility] Comment on above: Performed By: #### 5 7021-8 #### THELMA DENNISON ([id number]) [facility] ([facility]) [address] [place] [address] 86829 Monocytes/100 WBC (Bld) 9.6 % Normal 2.0-10.0 [facility] Comment on above: Performed By: #### 5 7021-8 #### THELMA DENNISON ([id number]) [facility] ([facility]) [address] [place] [address] 98436 Neutrophils (Bld) [#/Vol] 5.05 x10*3/uL Normal 1.60-5.50 [facility] Comment on above: Result Comment: Perc ent differential counts (%) should be interpreted in the context of the absolute cell counts (cells/uL). Performed By: #### 5 7021-8 #### THELMA DENNISON ([id number]) [facility] ([facility]) [address] [place] [address] 07777 Neutrophils/100 WBC (Bld) 55.6 % Normal 40.0-80.0 [facility] Comment on above: Performed By: #### 5 7021-8 #### THELMA DENNISON ([id number]) [facility] ([facility]) [address] [place] [address] 72076 Nucleated RBC/100 WBC (Bld) [Ratio] 0.0 /100 WBCs Normal 0.0-0.0 [facility] Comment on above: Performed By: #### 5 7021-8 #### THELMA DENNISON ([id number]) [facility] ([facility]) [address] [place] [address] 38808 Platelets (Bld) [#/Vol] 240 x10*3/uL Normal 150-450 [facility] Comment on above: Performed By: #### 5 7021-8 #### THELMA MONGE RIO ORTEGA ([id number]) [facility] ([facility]) [address] [place] [address] RBC (Bld) [#/Vol] 4.80 x10*6/uL Normal 4.00-5.20 [facility] Comment on above: Performed By: #### 5 7021-8 #### THELMA MONGE RIO ORTEGA ([id number]) [facility] ([facility]) [address] [place] [address] WBC (Bld) [#/Vol] 9.1 x10*3/uL Normal 4.4-11.3 [facility] Comment on above: Performed By: #### 5 7021-8 #### THELMA MARIPOSA VIVAS ([id number]) [facility] ([facility]) [address] [place] [address] 79484 Basophils (Bld) [#/Vol] 0.07 10*3/uL [facility] Basophils/100 WBC (Bld) 0.8 % 0.0 - 2.0 % [facility] Eosinophils (Bld) [#/Vol] 1.09 10*3/uL High [facility] Eosinophils/100 WBC (Bld) 12.0 % 0.0 - 6.0 % [facility] Erythrocyte distribution width (RBC) [Ratio] 14.1 % 11.5 - 14.5 % [facility] Hematocrit (Bld) [Volume fraction] 41.4 % 36.0 - 46.0 % [facility] Hemoglobin (Bld) [Mass/Vol] 14.1 g/dL 12.0 - 16.0 g/dL [facility] Immature granulocytes (Bld) [#/Vol] 0.12 10*3/uL [facility] Immature granulocytes/100 WBC (Bld) 1.3 % High 0.0 - 0.9 % [facility] Comment on above: Immature Granulocyte Count (IG) includes promyelocytes, myelocytes and metamyelocytes but does not include bands. Percent differential counts (%) should be interpreted in the context of the absolute cell counts (cells/UL). Interpretation and review of laboratory results Abnormal [facility] Lymphocytes (Bld) [#/Vol] 1.88 10*3/uL [facility] Lymphocytes/100 WBC (Bld) 20.7 % 13.0 - 44.0 % [facility] MCH (RBC) [Entitic mass] 29.4 pg 26.0 - 34.0 pg [facility] MCHC (RBC) [Mass/Vol] 34.1 g/dL 32.0 - 36.0 g/dL [facility] MCV (RBC) [Entitic vol] 86 fL 80 - 100 fL [facility] Monocytes (Bld) [#/Vol] 0.87 10*3/uL High [facility] Monocytes/100 WBC (Bld) 9.6 % 2.0 - 10.0 % [facility] Neutrophils (Bld) [#/Vol] 5.05 10*3/uL [facility] Comment on above: Percent differential counts (%) should be interpreted in the context of the absolute cell counts (cells/uL). Neutrophils/100 WBC (Bld) 55.6 % 40.0 - 80.0 % [facility] Nucleated RBC/100 WBC (Bld) [Ratio] 0.0 % [facility] Platelets (Bld) [#/Vol] 240 10*3/uL [facility] RBC (Bld) [#/Vol] 4.80 10*6/uL [facility] WBC (Bld) [#/Vol] 9.1 10*3/uL [facility] Calcitriolon 05-24-2023 1,25-dihydroxyvitamin D3 [Mass/Vol] 179.0 pg/mL High 19.9-79.3 [facility] Comment on above: Result Comment: INTE RPRETIVE INFORMATION: Vitamin D, 1,25-Dihydroxy This test is primarily indicated during patient evaluation for hypercalcemia and renal failure. A normal result does not rule out Vitamin D deficiency. The recommended test for diagnosing Vitamin D deficiency is Vitamin D 25-hydroxy. Performed By: [facility] [address] [place] [address] 22483 Blood Bank Order Control Clerk: Jefferson Kerr MD, PhD CLIA Number: [id number] Performed By: #### 3 4529-8 #### THELMA DENNISON ([id number]) [facility] ([facility]) [address] [place] [address] 61629 Calcium, ionizedon Calcium.ionized (Bld) [Moles/Vol] 1.53 mmol/L High 1.1 - 1.33 mmol/L [facility] Comment on above: The performance domi acteristics of ionized calcium tested in heparinized plasma or serum have been validated by the individual laboratory site where testing is performed. Testing on heparinized plasma or serum is not approved by the FDA; however, such approval is not necessary. Calcium.ionizedon 05-24-2023 Calcium.ionized (Bld) [Moles/Vol] 1.53 mmol/L High 1.1-1.33 [facility] Comment on above: Result Comment: The performance characteristics of ionized calcium tested in heparinized plasma or serum have been validated by the individual laboratory site where testing is performed. Testing on heparinized plasma or serum is not approved by the FDA; however, such approval is not necessary. Performed By: #### 1 994-3 #### THELMA DENNISON ([id number]) [facility] ([facility]) [address] [place] [address] 28480 Calcium.ionized (Bld) [Moles /Vol]on 05-24-2023 Interpretation and review of laboratory results Abnormal [facility] Coagulation tissue factor in ducedon 05-24-2023 PT Coag (PPP) [Time] 25.3 s High 9.8-12.8 [facility] Comment on above: Performed By: #### 5 902-2 #### THELMA DENNISON ([id number]) [facility] ([facility]) [address] [place] [address] 45021 Comprehensive metabolic 2000 panelon 05-24-2023 Albumin BCP dye [Mass/Vol] 3.1 g/dL Low 3.4-5.0 [facility] Comment on above: Performed By: #### 2 4323-8 #### THELMA DENNISON ([id number]) [facility] ([facility]) [address] [place] [address] 41120 ALP [Catalytic activity/Vol] 47 U/L Normal 33-136 [facility] Comment on above: Performed By: #### 2 4323-8 #### THELMA DENNISON ([id number]) [facility] ([facility]) [address] [place] [address] 05468 ALT With P-5'-P [Catalytic activity/Vol] 39 U/L Normal 7-45 [facility] Comment on above: Result Comment: Liz ents treated with Sulfasalazine may generate falsely decreased results for ALT. Performed By: #### 2 4323-8 #### THELMA DENNISON ([id number]) [facility] ([facility]) [address] [place] [address] 07947 Anion gap [Moles/Vol] 11 mmol/L Normal 10-20 [facility] Comment on above: Performed By: #### 2 4323-8 #### THELMA DENNISON ([id number]) [facility] ([facility]) [address] [place] [address] 35460 AST With P-5'-P [Catalytic activity/Vol] 45 U/L High 9-39 [facility] Comment on above: Performed By: #### 2 4323-8 #### THELMA DENNISON ([id number]) [facility] ([facility]) [address] [place] [address] 67296 Bilirubin [Mass/Vol] 0.5 mg/dL Normal 0.0-1.2 [facility] Comment on above: Performed By: #### 2 4323-8 #### THELMA DENNISON ([id number]) [facility] ([facility]) [address] [place] [address] 24915 Calcium [Mass/Vol] 11.1 mg/dL High 8.6-10.3 [facility] Comment on above: Performed By: #### 2 4323-8 #### THELMA DENNISON ([id number]) [facility] ([facility]) [address] [place] [address] Chloride [Moles/Vol] 108 mmol/L High 98-107 [facility] Comment on above: Performed By: #### 2 4323-8 #### THELMA DENNISON ([id number]) [facility] ([facility]) [address] [place] [address] CO2 [Moles/Vol] 23 mmol/L Normal 21-32 [facility] Comment on above: Performed By: #### 2 4323-8 #### THELMA DENNISON ([id number]) [facility] ([facility]) [address] [place] [address] 98505 Creatinine [Mass/Vol] 1.87 mg/dL High 0.50-1.05 [facility] Comment on above: Performed By: #### 2 4323-8 #### THELMA DENNISON ([id number]) [facility] ([facility]) [address] [place] [address] 74587 Glomerular filtration rate/1.73 sq M.predicted 27 mL/min/1.73m*2 Low >60 [facility] Comment on above: Result Comment: Calc ulations of estimated GFR are performed using the 2020 CKD-EPI Study Refit equation without the race variable for the IDMS-Traceable creatinine methods. https://jasn.asnjournals.org/content//ASN.29692 90507 Performed By: #### 2 4323-8 #### THELMA DENNISON ([id number]) [facility] ([facility]) [address] [place] [address] Glucose [Mass/Vol] 77 mg/dL Normal 74-99 [facility] Comment on above: Performed By: #### 2 4323-8 #### THELMA DENNISON ([id number]) [facility] ([facility]) [address] [place] [address] Potassium [Moles/Vol] 3.8 mmol/L Normal 3.5-5.3 [facility] Comment on above: Performed By: #### 2 4323-8 #### THELMA DENNISON ([id number]) [facility] ([facility]) [address] [place] [address] Protein [Mass/Vol] 5.1 g/dL Low 6.4-8.2 [facility] Comment on above: Performed By: #### 2 4323-8 #### THELMA DENNISON ([id number]) [facility] ([facility]) [address] [place] [address] Sodium [Moles/Vol] 138 mmol/L Normal 136-145 [facility] Comment on above: Performed By: #### 2 4323-8 #### THELMA DENNISON ([id number]) [facility] ([facility]) [address] [place] [address] Urea nitrogen [Mass/Vol] 38 mg/dL High 6-23 [facility] Comment on above: Performed By: #### 2 4323-8 #### THELMA DENNISON ([id number]) [facility] ([facility]) [address] [place] [address] Albumin BCP dye [Mass/Vol] 3.1 g/dL Low 3.4 - 5.0 g/dL [facility] ALP [Catalytic activity/Vol] 47 U/L 33 - 136 U/L [facility] ALT With P-5'-P [Catalytic activity/Vol] 39 U/L 7 - 45 U/L [facility] Comment on above: Patients treated wit h Sulfasalazine may generate falsely decreased results for ALT. Anion gap [Moles/Vol] 11 mmol/L 10 - 2 0 mmol/L [facility] AST With P-5'-P [Catalytic activity/Vol] 45 U/L High 9 - 39 U/L [facility] Bilirubin [Mass/Vol] 0.5 mg/dL 0.0 - 1 .2 mg/dL [facility] Calcium [Mass/Vol] 11.1 mg/dL High 8.6 - 10. 3 mg/dL [facility] Chloride [Moles/Vol] 108 mmol/L High 98 - 10 7 mmol/L [facility] CO2 [Moles/Vol] 23 mmol/L 21 - 32 mmol/L [facility] Creatinine [Mass/Vol] 1.87 mg/dL High 0.50 - 1.05 mg/dL [facility] GFR/1.73 sq M.predicted among non-blacks MDRD (S/P/Bld) [Vol rate/Area] 27 mL/min/{1.73_m2} Low - PINF [facility] Comment on above: Calculations of marisabel mated GFR are performed using the 2020 CKD-EPI Study Refit equation without the race variable for the IDMS-Traceable creatinine methods. https://jasn.asnjournals.org/content/early//ASN.55348 75125 Glucose [Mass/Vol] 77 mg/dL 74 - 99 mg/dL [facility] Interpretation and review of laboratory results Abnormal [facility] Potassium [Moles/Vol] 3.8 mmol/L 3.5 - 5.3 mmol/L [facility] Protein [Mass/Vol] 5.1 g/dL Low 6.4 - 8.2 g/dL [facility] Sodium [Moles/Vol] 138 mmol/L 136 - 145 mmol/L [facility] Urea nitrogen [Mass/Vol] 38 mg/dL High 6 - 23 mg/dL [facility] Albumin BCP dye [Mass/Vol] 3.3 g/dL Low 3.4-5.0 [facility] Comment on above: Performed By: #### 2 4323-8 #### THELMA DENNISON ([id number]) [facility] ([facility]) [address] [place] [address] ALP [Catalytic activity/Vol] 52 U/L Normal 33-136 [facility] Comment on above: Performed By: #### 2 4323-8 #### THELMA DENNISON ([id number]) [facility] ([facility]) [address] [place] [address] ALT With P-5'-P [Catalytic activity/Vol] 43 U/L Normal 7-45 [facility] Comment on above: Result Comment: Liz ents treated with Sulfasalazine may generate falsely decreased results for ALT. Performed By: #### 2 4323-8 #### THELMA DENNISON ([id number]) [facility] ([facility]) [address] [place] [address] Anion gap [Moles/Vol] 10 mmol/L Normal 10-20 [facility] Comment on above: Performed By: #### 2 4323-8 #### THELMA DENNISON ([id number]) [facility] ([facility]) [address] [place] [address] AST With P-5'-P [Catalytic activity/Vol] 48 U/L High 9-39 [facility] Comment on above: Performed By: #### 2 4323-8 #### THELMA DENNISON ([id number]) [facility] ([facility]) [address] [place] [address] 96929 Bilirubin [Mass/Vol] 0.5 mg/dL Normal 0.0-1.2 [facility] Comment on above: Performed By: #### 2 4323-8 #### THELMA DENNISON ([id number]) [facility] ([facility]) [address] [place] [address] Calcium [Mass/Vol] 11.5 mg/dL High 8.6-10.3 [facility] Comment on above: Performed By: #### 2 4323-8 #### DELORESIBLIBRADO DENNISON ([id number]) [facility] ([facility]) [address] [place] [address] 98693 Chloride [Moles/Vol] 106 mmol/L Normal 98-107 [facility] Comment on above: Performed By: #### 2 4323-8 #### DELORESIBLIBRADO DENNISON ([id number]) [facility] ([facility]) [address] [place] [address] CO2 [Moles/Vol] 25 mmol/L Normal 21-32 [facility] Comment on above: Performed By: #### 2 4323-8 #### THELMA DENNISON ([id number]) [facility] ([facility]) [address] [place] [address] 60589 Creatinine [Mass/Vol] 1.95 mg/dL High 0.50-1.05 [facility] Comment on above: Performed By: #### 2 4323-8 #### THELMA DENNISON ([id number]) [facility] ([facility]) [address] [place] [address] 25659 Glomerular filtration rate/1.73 sq M.predicted 26 mL/min/1.73m*2 Low >60 [facility] Comment on above: Result Comment: Calc ulations of estimated GFR are performed using the 2020 CKD-EPI Study Refit equation without the race variable for the IDMS-Traceable creatinine methods. https://jasn.asnjournals.org/content/early//ASN.53832 90093 Performed By: #### 2 4323-8 #### THELMA DENNISON ([id number]) [facility] ([facility]) [address] [place] [address] 53587 Glucose [Mass/Vol] 83 mg/dL Normal 74-99 [facility] Comment on above: Performed By: #### 2 4323-8 #### THELMA DENNISON ([id number]) [facility] ([facility]) [address] [place] [address] 17245 Potassium [Moles/Vol] 3.8 mmol/L Normal 3.5-5.3 [facility] Comment on above: Performed By: #### 2 4323-8 #### THELMA DENNISON ([id number]) [facility] ([facility]) [address] [place] [address] 41684 Protein [Mass/Vol] 5.4 g/dL Low 6.4-8.2 [facility] Comment on above: Performed By: #### 2 4323-8 #### THELMA DENNISON ([id number]) [facility] ([facility]) [address] [place] [address] Sodium [Moles/Vol] 137 mmol/L Normal 136-145 [facility] Comment on above: Performed By: #### 2 4323-8 #### THELMA DENNISON ([id number]) [facility] ([facility]) [address] [place] [address] Urea nitrogen [Mass/Vol] 37 mg/dL High 6-23 [facility] Comment on above: Performed By: #### 2 4323-8 #### THELMA MONGE RIO ORTEGA ([id number]) [facility] ([facility]) [address] [place] [address] Albumin BCP dye [Mass/Vol] 3.3 g/dL Low 3.4 - 5.0 g/dL [facility] ALP [Catalytic activity/Vol] 52 U/L 33 - 136 U/L [facility] ALT With P-5'-P [Catalytic activity/Vol] 43 U/L 7 - 45 U/L [facility] Comment on above: Patients treated wit h Sulfasalazine may generate falsely decreased results for ALT. Anion gap [Moles/Vol] 10 mmol/L 10 - 2 0 mmol/L [facility] AST With P-5'-P [Catalytic activity/Vol] 48 U/L High 9 - 39 U/L [facility] Bilirubin [Mass/Vol] 0.5 mg/dL 0.0 - 1 .2 mg/dL [facility] Calcium [Mass/Vol] 11.5 mg/dL High 8.6 - 10. 3 mg/dL [facility] Chloride [Moles/Vol] 106 mmol/L 98 - 10 7 mmol/L [facility] CO2 [Moles/Vol] 25 mmol/L 21 - 32 mmol/L [facility] Creatinine [Mass/Vol] 1.95 mg/dL High 0.50 - 1.05 mg/dL [facility] GFR/1.73 sq M.predicted among non-blacks MDRD (S/P/Bld) [Vol rate/Area] 26 mL/min/{1.73_m2} Low - PINF [facility] Comment on above: Calculations of marisabel mated GFR are performed using the 2020 CKD-EPI Study Refit equation without the race variable for the IDMS-Traceable creatinine methods. https://jasn.asnjournals.org/content//ASN.31629 50821 Glucose [Mass/Vol] 83 mg/dL 74 - 99 mg/dL [facility] Interpretation and review of laboratory results Abnormal [facility] Potassium [Moles/Vol] 3.8 mmol/L 3.5 - 5.3 mmol/L [facility] Protein [Mass/Vol] 5.4 g/dL Low 6.4 - 8.2 g/dL [facility] Sodium [Moles/Vol] 137 mmol/L 136 - 145 mmol/L [facility] Urea nitrogen [Mass/Vol] 37 mg/dL High 6 - 23 mg/dL [facility] Magnesiumon 05-24-2023 Magnesium [Mass/Vol] 1.95 mg/dL Normal 1.60-2.40 [facility] Comment on above: Performed By: #### 1 9123-9 #### THELMA DENNISON ([id number]) [facility] ([facility]) [address] [place] [address] 01635 Magnesium [Mass/Vol] 1.95 mg/dL 1.60 - 2.40 mg/dL [facility] Magnesium [Mass/Vol] 2.03 mg/dL Normal 1.60-2.40 [facility] Comment on above: Performed By: #### 1 9123-9 #### THELMA DENNISON ([id number]) [facility] ([facility]) [address] [place] [address] 25568 Magnesium [Mass/Vol] 2.03 mg/dL 1.60 - 2.40 mg/dL [facility] Magnesium [Mass/Vol]on 05-23 Interpretation and review of laboratory results Normal [facility] Interpretation and review of laboratory results Normal [facility] No Panel Informationon 05-23 [facility] PT Coag (PPP) [Time]on 05-23 INR Coag (PPP) [Relative time] 2.2 High 0.9-1.1 [facility] Comment on above: Performed By: #### 5 902-2 #### THELMA DENNISON ([id number]) [facility] ([facility]) [address] [place] [address] 00740 INR Coag (PPP) [Relative time] 2.2 {INR} High 0.9 - 1.1 [facility] Interpretation and review of laboratory results Abnormal [facility] PT and aPTT panel Coag (PPP) on 05-24-2023 aPTT Coag (PPP) [Time] 36 s Normal 27-38 [facility] Comment on above: Order Comment: The A PTT is no longer used for monitoring Unfractionated Heparin Therapy. For monitoring Heparin Therapy, use the Heparin Assay. Performed By: #### 3 4529-8 #### THELMA DENNISON ([id number]) [facility] ([facility]) [address] [place] [address] 54443 INR Coag (PPP) [Relative time] 2.2 High 0.9-1.1 [facility] Comment on above: Order Comment: The A PTT is no longer used for monitoring Unfractionated Heparin Therapy. For monitoring Heparin Therapy, use the Heparin Assay. Performed By: #### 3 4529-8 #### THELMA DENNISON ([id number]) [facility] ([facility]) [address] [place] [address] 27520 PT Coag (PPP) [Time] 25.0 s High 9.8-12.8 [facility] Comment on above: Order Comment: The A PTT is no longer used for monitoring Unfractionated Heparin Therapy. For monitoring Heparin Therapy, use the Heparin Assay. Performed By: #### 3 4529-8 #### THELMA DENNISON ([id number]) [facility] ([facility]) [address] [place] [address] 54718 aPTT Coag (PPP) [Time] 36 s [facility] INR Coag (PPP) [Relative time] 2.2 {INR} High 0.9 - 1.1 [facility] Interpretation and review of laboratory results Abnormal [facility] PT Coag (PPP) [Time] 25.0 s [facility] The APTT is no longe r used for monitoring Unfractionated Heparin Therapy. For monitoring Heparin Therapy, use the Heparin Assay. [facility] PTH, Int[place]on 05-24-2023 Parathyrin.intact [Mass/Vol] 11.2 pg/mL Low 18.5 - 88.0 pg/mL [facility] Parathyrin.intacton 05-24-19 Parathyrin.intact [Mass/Vol] 11.2 pg/mL Low 18.5-88.0 [facility] Comment on above: Performed By: #### 2 731-8 #### JENNIFER Mirza ([id number]) [facility] ([facility]) [address] [place] [address] Parathyrin.intact [Mass/Vol] on 05-24-2023 Interpretation and review of laboratory results Abnormal [facility] Protime-INRon 05-24-2023 PT Coag (PPP) [Time] 25.3 s [facility] SST TOPon 05-24-2023 Extra Tube Hold for add-ons. [facility] Comment on above: Auto resulted. [facility] Absolute lymphocyte countOrd ered By: Ankush Noguera on 05-23-2023 Lymphocytes Auto (Unsp spec) [#/Vol] 1.83 10*3/uL 0.83-4.51 [facility] Automated lymphocyte count a s percentage of total leukocytesOrdered By: Ankush Noguera on 05-23-2023 Lymphocytes/100 WBC Auto (Unsp spec) 19.2 % 19-41 [facility] Basic metabolic 2000 panelon 05-23-2023 Anion gap [Moles/Vol] 16 mmol/L 9 - 18 mmol/L [facility] Calcium [Mass/Vol] 12.6 mg/dL High 8.5 - 10. 2 mg/dL [facility] Chloride [Moles/Vol] 100 mmol/L 97 - 10 5 mmol/L [facility] CO2 [Moles/Vol] 18 mmol/L Low 22 - 30 mmol/L [facility] Creatinine [Mass/Vol] 1.98 mg/dL High 0.58 - 0.96 mg/dL [facility] Estimated Glomerular Filtration Rate 25 mL/min/1.73m Low >=60 mL/min/1.73m [facility] Glucose [Mass/Vol] 110 mg/dL High 74 - 99 mg/dL [facility] Potassium [Moles/Vol] 4.7 mmol/L 3.7 - 5.1 mmol/L [facility] Sodium [Moles/Vol] 134 mmol/L Low 136 - 144 mmol/L [facility] Urea nitrogen [Mass/Vol] 35 mg/dL High 7 - 21 mg/dL [facility] Basophil percentageOrdered B y: Ankush Noguera on 05-23-2023 Basophil percentage 50-100 SEEN /hpf 0-5 [facility] Basophils/100 WBC (Bld) 0.8 % 0-1 [facility] Bilirubin [Mass/Vol] 0.40 mg/dL 0.20-1.00 [facility] Comment on above: For patients on eltr ombopag therapy, use of [place] TBIL is not recommended. Chloride [Moles/Vol] 105 mmol/L 98-107 [facility] Eosinophils/100 WBC (Bld) 9.7 % 0-5 [facility] Glucose [Mass/Vol] 144 mg/dL 74-106 [facility] Comment on above: Fasting Glucose resu lt greater than or equal to 126 mg/dL suggests DIABETES MELLITUS per A.D.A. criteria. Hemoglobin (Bld) [Mass/Vol] 14.5 g/dL 12.0-15.0 [facility] Monocytes/100 WBC (Bld) 9.7 % 0-10 [facility] Neutrophils (Bld) [#/Vol] 5.7 10*3/uL 2.0-7.7 [facility] Neutrophils/100 WBC (Bld) 59.7 % 47-70 [facility] Potassium [Moles/Vol] 4.0 mmol/L 3.5-5.1 [facility] Protein [Mass/Vol] 5.9 g/dL 6.4-8.2 [facility] Sodium [Moles/Vol] 136 mmol/L 136-145 [facility] WBC (Bld) [#/Vol] 9.5 10*3/uL 4.4-11.0 [facility] Bilirubin Test strip Ql (U)O rdered By: Ankush Noguera on 05-23-2023 Bilirubin Ql (U) Negative Negative [facility] Calcium.ionized [Moles/Vol]o n 05-23-2023 Calcium.ionized (Bld) [Mass/Vol] 1.69 mmol/L High 1.08 - 1.30 mmol/L [facility] Calcium.ionized adjusted to pH 7.4 (Bld) [Moles/Vol] 1.69 mmol/L High 1.08 - 1.30 mmol/L [facility] Determination of erythrocyte mean corpuscular volume (MCV)Ordered By: Ankush Noguera on 05-23-2023 MCV (RBC) [Entitic vol] 85.4 fL 81-99 [facility] Erythrocyte distribution wid th ratioOrdered By: Ankush Noguera on 05-23-2023 Erythrocyte distribution width (RBC) [Ratio] 14.2 % 11.6-14.6 [facility] Erythrocyte distribution wid th standard deviationOrdered By: Ankush Noguera on 05-23-2023 Erythrocyte distribution width (RBC) [Entitic vol] 44.1 fL 35.1-43.9 [facility] Hematocrit Auto (Bld) [Volum e fraction]Ordered By: Ankush Noguera on 05-23-2023 Hematocrit (Bld) [Volume fraction] 43.3 % 37-47 [facility] Immature granulocytes/100 WB C Auto (Bld)Ordered By: Ankush Noguera on 05-23-2023 Immature granulocytes/100 WBC (Bld) 0.900 % 0.0-0.9 [facility] Comment on above: IG% - Immature Granu locytes (promyelocytes, myelocytes and metamyelocytes) > 1% indicates that a LEFT SHIFT is Present. Ketones Test strip Ql (U)Ord ered By: Ankush Noguera on 05-23-2023 Ketones Ql (U) Negative Negative [facility] Laboratory - Chemistry and C hemistry - challengeOrdered By: Ankush Noguera on 05-23-2023 Albumin/Globulin [Mass ratio] 1.0 {ratio} 0.9-2.4 [facility] ALP [Catalytic activity/Vol] 76 U/L 45-117 [facility] ALT [Catalytic activity/Vol] 62 U/L 13-56 [facility] CO2 [Moles/Vol] 23.0 mmol/L 21.0-32.0 [facility] Globulin (S) [Mass/Vol] 3.0 g/dL 2.2-4.2 [facility] Urea nitrogen/Creatinine [Mass ratio] 18.9 mg/mg 10-20 [facility] Laboratory - CoagulationOrde red By: Ankush Noguera on 05-23-2023 INR Coag (Bld) [Relative time] 2.1 {INR} [facility] PT Coag (PPP) [Time] 23.0 s 11.7-14.9 [facility] Laboratory - Hematology and Cell countsOrdered By: Ankush Noguera on 05-23-2023 MCH (RBC) [Entitic mass] 28.6 pg 27.0-32.0 [facility] MCHC (RBC) [Mass/Vol] 33.5 g/dL 32-36 [facility] Nucleated RBC/100 WBC (Bld) [Ratio] 0 % 0-5 [facility] Platelet mean volume (Bld) [Entitic vol] 10.9 fL 6.2-12.0 [facility] Platelets (Bld) [#/Vol] 271 10*3/uL 150-450 [facility] MAGNESIUM BLDon 05-23-2023 Magnesium [Mass/Vol] 2.3 mg/dL 1.7 - 2 .3 mg/dL [facility] Mucus LM Ql (Urine sed)Order ed By: Ankush Noguera on 05-23-2023 Mucus Ql (Urine sed) 0 SEEN /hpf [facility] Nitrite Test strip Ql (U)Ord ered By: Ankush Noguera on 05-23-2023 Nitrite Ql (U) Negative Negative [facility] No Panel InformationOrdered By: Ankush Noguera on 05-23-2023 Urine RBC 10-25 SEEN /hpf 0-5 [facility] Ionized Calcium 6.22 mg/dL 4.36-5.20 [facility] Estimated Creatinine Clearance Calc 19.14 ml/min [facility] Estimated GFR (MDRD) Amer 30 mL/min >60 [facility] Comment on above: GFR Calc Estimated GFR (MDRD) Non-Af Amer 25 mL/min >60 [facility] Comment on above: Non- GFR Calc Troponin I High Sensitivity 32 pg/mL 3.0-54.0 [facility] Comment on above: Please Note: New Katerina t Units and Gender Specific Reference Ranges. For more information see Policy Stat Procedure [place] High Sensitivity Troponin (TNIH) and attachments. PHOSPHORUS INORGANICon 05-22 Phosphate [Mass/Vol] 4.1 mg/dL 2.7 - 4 .8 mg/dL [facility] Protein Test strip Ql (U)Ord ered By: Ankush Noguera on 05-23-2023 Protein Ql (U) 15 mg/dl Negative [facility] RBC Auto (Bld) [#/Vol]Ordere d By: Ankush Noguera on 05-23-2023 RBC (Bld) [#/Vol] 5.07 10*6/uL 4.2-5.4 [facility] Serum or plasma calcium scott urement (mass/volume)Ordered By: Ankush Noguera on 05-23-2023 Calcium [Mass/Vol] 11.9 mg/dL 8.5-10.1 [facility] Serum or plasma creatinine m easurement (mass/volume)Ordered By: Ankush Noguera on 05-23-2023 Creatinine [Mass/Vol] 2.06 mg/dL 0.55-1.02 [facility] Comment on above: The validity of the calculated GFR & GFRAA in patients over 70 years has not been determined. Clinical correlation is essential. Serum or plasma urea nitroge n measurement (mass/volume)Ordered By: Ankush Noguera on 05-23-2023 Urea nitrogen [Mass/Vol] 39 mg/dL 7-18 [facility] Squamous epithelial cells de tection in urine sediment by light microscopyOrdered By: Ankush Noguera on 05-23-2023 Epithelial cells.squamous LM Ql (Urine sed) 5-10 SEEN /hpf 5-10 [facility] Thin prep Papanicolaou smear with manual screeningOrdered By: Ankush Noguera on 05-23-2023 Thin prep Papanicolaou smear with manual screening 2.9 g/dL 3.2-5.0 [facility] Thin prep Papanicolaou smear with manual screening 64 U/L 15-37 [facility] Thin prep Papanicolaou smear with manual screening 8 5-15 [facility] UA DIP, URINE (POC)on 2023 BILIRUBIN UA (POCT) Negative Negative [facility] CLARITY UA (POCT) Clear [facility] COLOR UA (POCT) Yellow [facility] GLUCOSE UA (POCT) Negative Negative mg/dL [facility] Hemoglobin Ql (U) Small Abnormal Negative [facility] KETONE UA (POCT) Negative Negative mg/dL [facility] LEUKOCYTES UA (POCT) Small Abnormal Negative [facility] NITRITE [facility]A (POCT) Negative Negative [facility] PH UA (POCT) 5.5 4.5 - 8.0 [facility] Protein Ql (U) Negative Negative mg/dL [facility] SPECIFIC GRAVITY UA (POCT) <=1.005 Abnormal 1.005 - 1.030 [facility] UROBILINOGEN UA (POCT) 0.2 E.U./dL Camelia l E.U./dL [facility] Urine blood detectionOrdered By: Ankush Noguera on 05-23-2023 RBC Ql (U) 25 /ul Negative [facility] Urine clarityOrdered By: Edouard Noguera on 05-23-2023 Clarity (U) Clear Clear [facility] Urine color determinationOrd ered By: Ankush Noguera on 05-23-2023 Color (U) Yellow Yellow [facility] Urine glucose detectionOrder ed By: Ankush Noguera on 05-23-2023 Glucose Ql (U) Normal mg/dl Normal [facility] Urine leukocyte esterase det ection by dipstickOrdered By: Ankush Noguera on 05-23-2023 Leukocyte esterase Test strip Ql (U) 500 /ul Negative [facility] Urine pHOrdered By: Ankush ford on 05-23-2023 pH (U) 6.5 [pH] 5.0 - 8.0 [facility] Urine sediment bacteria coun t by microscopy (number/high power field)Ordered By: Ankush Noguera on 05-23-2023 Bacteria LM.HPF (Urine sed) [#/Area] 0 /[HPF] None Seen [facility] Urine specific gravity measu rementOrdered By: Ankush Noguera on 05-23-2023 Specific gravity (U) [Rel density] 1.010 1.002-1.030 [facility] Urine urobilinogen measureme ntOrdered By: Ankush Noguera on 05-23-2023 Urobilinogen Ql (U) Normal mg/dl Normal [facility] Absolute lymphocyte countOrd ered By: Juan Alberto Mcclendon on 05-15-2023 Lymphocytes Auto (Unsp spec) [#/Vol] 1.74 10*3/uL 0.83-4.51 [facility] Automated lymphocyte count a s percentage of total leukocytesOrdered By: Juan Alberto Mcclendon on 05-15-2023 Lymphocytes/100 WBC Auto (Unsp spec) 15.8 % 19-41 [facility] Basophil percentageOrdered B y: Juan Alberto Mcclendon on 05-15-2023 Basophils/100 WBC (Bld) 0.6 % 0-1 [facility] Chloride [Moles/Vol] 103 mmol/L 98-107 [facility] Eosinophils/100 WBC (Bld) 6.4 % 0-5 [facility] Glucose [Mass/Vol] 103 mg/dL 74-106 [facility] Comment on above: Fasting Glucose resu lt from 100 to 125 mg/dL suggests IMPAIRED HOMEOSTASIS per A.D.A. criteria. Hemoglobin (Bld) [Mass/Vol] 14.4 g/dL 12.0-15.0 [facility] Monocytes/100 WBC (Bld) 10.7 % 0-10 [facility] Neutrophils (Bld) [#/Vol] 7.2 10*3/uL 2.0-7.7 [facility] Neutrophils/100 WBC (Bld) 65.8 % 47-70 [facility] Potassium [Moles/Vol] 3.6 mmol/L 3.5-5.1 [facility] Sodium [Moles/Vol] 134 mmol/L 136-145 [facility] WBC (Bld) [#/Vol] 11.0 10*3/uL 4.4-11.0 [facility] Determination of erythrocyte mean corpuscular volume (MCV)Ordered By: Juan Alberto Mcclendon on 05-15-2023 MCV (RBC) [Entitic vol] 88.0 fL 81-99 [facility] Erythrocyte distribution wid th ratioOrdered By: Juan Alberto Mcclendon on 05-15-2023 Erythrocyte distribution width (RBC) [Ratio] 14.3 % 11.6-14.6 [facility] Erythrocyte distribution wid th standard deviationOrdered By: Juan Alberto Mcclendon on 05-15-2023 Erythrocyte distribution width (RBC) [Entitic vol] 45.5 fL 35.1-43.9 [facility] Hematocrit Auto (Bld) [Volum e fraction]Ordered By: Juan Alberto Mcclendon on 05-15-2023 Hematocrit (Bld) [Volume fraction] 44.8 % 37-47 [facility] Immature granulocytes/100 WB C Auto (Bld)Ordered By: Juan Alberto Mcclendon on 05-15-2023 Immature granulocytes/100 WBC (Bld) 0.700 % 0.0-0.9 [facility] Comment on above: IG% - Immature Granu locytes (promyelocytes, myelocytes and metamyelocytes) > 1% indicates that a LEFT SHIFT is Present. Laboratory - Chemistry and C hemistry - challengeOrdered By: Juan Alberto Mcclendon on 05-15-2023 CO2 [Moles/Vol] 22.0 mmol/L 21.0-32.0 [facility] Urea nitrogen/Creatinine [Mass ratio] 17.6 mg/mg 10-20 [facility] Laboratory - Hematology and Cell countsOrdered By: Juan Alberto Mcclendon on 05-15-2023 MCH (RBC) [Entitic mass] 28.3 pg 27.0-32.0 [facility] MCHC (RBC) [Mass/Vol] 32.1 g/dL 32-36 [facility] Nucleated RBC/100 WBC (Bld) [Ratio] 0 % 0-5 [facility] Platelet mean volume (Bld) [Entitic vol] 11.8 fL 6.2-12.0 [facility] Platelets (Bld) [#/Vol] 216 10*3/uL 150-450 [facility] No Panel InformationOrdered By: Juan Alberto Mcclendon on 05-15-2023 Estimated Creatinine Clearance Calc 19.41 ml/min [facility] Estimated GFR (MDRD) Amer 30 mL/min >60 [facility] Comment on above: GFR Calc Estimated GFR (MDRD) Non-Af Amer 25 mL/min >60 [facility] Comment on above: Non- GFR Calc RBC Auto (Bld) [#/Vol]Ordere d By: Juan Alberto Mcclendon on 05-15-2023 RBC (Bld) [#/Vol] 5.09 10*6/uL 4.2-5.4 [facility] Serum or plasma calcium scott urement (mass/volume)Ordered By: Juan Alberto Mcclendon on 05-15-2023 Calcium [Mass/Vol] 11.1 mg/dL 8.5-10.1 [facility] Serum or plasma creatinine m easurement (mass/volume)Ordered By: Juan Alberto Mcclendon on 05-15-2023 Creatinine [Mass/Vol] 2.04 mg/dL 0.55-1.02 [facility] Comment on above: The validity of the calculated GFR & GFRAA in patients over 70 years has not been determined. Clinical correlation is essential. Serum or plasma urea nitroge n measurement (mass/volume)Ordered By: Juan Alberto Mcclendon on 05-15-2023 Urea nitrogen [Mass/Vol] 36 mg/dL 7-18 [facility] Thin prep Papanicolaou smear with manual screeningOrdered By: Juan Alberto Mcclendon on 05-15-2023 Thin prep Papanicolaou smear with manual screening 9 5-15 [facility] Capillary blood internationa l normalized ratio (INR)Ordered By: Shameka Velasquez on 2023 INR Coag (BldC) [Relative time] 3.0 [facility] Comment on above: Critical Value > 4.0 Whole blood prothrombin time Ordered By: Shameka Velasquez on 2023 PT Coag (Bld) [Time] 32.0 s 11.7-14.9 [facility] No Panel InformationOrdered By: Jennifer Tarango on 04-04-2023 Vitamin D 25-Hydroxy 66.6 ng/mL [facility] Comment on above: Vitamin D 25(OH) Sta tus Range Deficiency <20 ng/mL (50nmol/L) Insufficiency 20 - 30 ng/mL (50 - 75 nmol/L) Sufficiency 30 - 100 ng/mL (75 - 250 nmol/L) Toxicity >100 ng/mL (>250 nmol/L) Serum or plasma calcitriol m easurement (mass/volume)Ordered By: Jennifer Tarango on 04-04-2023 1,25-dihydroxyvitamin D3 [Mass/Vol] 45.7 pg/mL 24.8-81.5 [facility] Comment on above: Performed at: [address] [id number] Director: Yvonne Cook MD, Phone: [phone] Basophil percentageOrdered B y: Shameka Velasquez on 03-28-2023 Basophil percentage 2.8 mg/dL 2.5-4.9 [facility] Chloride [Moles/Vol] 106 mmol/L 98-107 [facility] Glucose [Mass/Vol] 94 mg/dL 74-106 [facility] Potassium [Moles/Vol] 4.1 mmol/L 3.5-5.1 [facility] Sodium [Moles/Vol] 137 mmol/L 136-145 [facility] Laboratory - Chemistry and C hemistry - challengeOrdered By: Shameka Velasquez on 03-28-2023 CO2 [Moles/Vol] 28.0 mmol/L 21.0-32.0 [facility] Urea nitrogen/Creatinine [Mass ratio] 26.5 mg/mg 10-20 [facility] Laboratory - CoagulationOrde red By: Shameka Velasquez on 03-28-2023 INR Coag (Bld) [Relative time] 1.7 {INR} [facility] PT Coag (PPP) [Time] 20.5 s 11.7-14.9 [facility] No Panel InformationOrdered By: Shameka Velasquez on 03-28-2023 Estimated GFR (MDRD) Amer 32 mL/min >60 [facility] Comment on above: GFR Calc Estimated GFR (MDRD) Non-Af Amer 26 mL/min >60 [facility] Comment on above: Non- GFR Calc Serum or plasma calcium scott urement (mass/volume)Ordered By: Shameka Velasquez on 03-28-2023 Calcium [Mass/Vol] 10.9 mg/dL 8.5-10.1 [facility] Serum or plasma creatinine m easurement (mass/volume)Ordered By: Shameka Velasquez on 03-28-2023 Creatinine [Mass/Vol] 1.96 mg/dL 0.55-1.02 [facility] Comment on above: The validity of the calculated GFR & GFRAA in patients over 70 years has not been determined. Clinical correlation is essential. Serum or plasma urea nitroge n measurement (mass/volume)Ordered By: Shameka Velasquez on 03-28-2023 Urea nitrogen [Mass/Vol] 52 mg/dL 7-18 [facility] Thin prep Papanicolaou smear with manual screeningOrdered By: Shameka Velasquez on 03-28-2023 Thin prep Papanicolaou smear with manual screening 3.5 g/dL 3.2-5.0 [facility] Laboratory - CoagulationOrde red By: Shameka Velasquez on 02-24-2023 PT Coag (PPP) [Time] 26.7 s 11.7-14.9 [facility] Whole blood international no rmalized ratio (INR)Ordered By: Shameka Velasquez on 02-24-2023 INR Coag (Bld) [Relative time] 2.4 {INR} [facility] Laboratory - CoagulationOrde red By: Shameka Velasquez on 02-08-2023 INR Coag (Bld) [Relative time] 3.1 {INR} [facility] Comment on above: Critical Value > 4.0 Whole blood prothrombin time Ordered By: Shameka Velasquez on 02-08-2023 PT Coag (Bld) [Time] 33.3 s 11.7-14.9 [facility] Laboratory - CoagulationOrde red By: Shameka Velasquez on 12-23-2022 INR Coag (Bld) [Relative time] 2.8 {INR} [facility] Comment on above: Critical Value > 4.0 Whole blood prothrombin time Ordered By: Shameka Velasquez on 12-23-2022 PT Coag (Bld) [Time] 30.6 s 11.7-14.9 [facility] XR FOOT GENERAL 3V AP/LAT/OB L RIGHTon [facility] Basophil percentageOrdered B y: Shameka Velasquez on 12-08-2022 Basophil percentage 2.5 mg/dL 2.5-4.9 [facility] Chloride [Moles/Vol] 107 mmol/L 98-107 [facility] Glucose [Mass/Vol] 185 mg/dL 74-106 [facility] Comment on above: Fasting Glucose resu lt greater than or equal to 126 mg/dL suggests DIABETES MELLITUS per A.D.A. criteria. Potassium [Moles/Vol] 4.3 mmol/L 3.5-5.1 [facility] Sodium [Moles/Vol] 140 mmol/L 136-145 [facility] INR in Blood by Coagulation assayOrdered By: Shameka Velasquez on 12-08-2022 INR Coag (Bld) [Relative time] 3.1 {INR} [facility] Laboratory - Chemistry and C hemistry - challengeOrdered By: Shameka Velasquez on 12-08-2022 CO2 [Moles/Vol] 28.0 mmol/L 21.0-32.0 [facility] Urea nitrogen/Creatinine [Mass ratio] 21.9 mg/mg 12-09 [facility] Laboratory - CoagulationOrde red By: Shameka Velasquez on 12-08-2022 PT Coag (PPP) [Time] 32.0 s 11.7-14.9 [facility] No Panel InformationOrdered By: Shameka Velasquez on 12-08-2022 Estimated GFR (MDRD) Amer 34 mL/min >60 [facility] Comment on above: GFR Calc Estimated GFR (MDRD) Non-Af Amer 28 mL/min >60 [facility] Comment on above: Non- GFR Calc Serum or plasma albumin scott urement (mass/volume)Ordered By: Shameka Velasquez on 12-08-2022 Albumin [Mass/Vol] 3.5 g/dL 3.2-5.0 [facility] Serum or plasma calcium scott urement (mass/volume)Ordered By: Shameka Velasquez on 12-08-2022 Calcium [Mass/Vol] 9.4 mg/dL 8.5-10.1 [facility] Serum or plasma creatinine m easurement (mass/volume)Ordered By: Shameka Velasquez on 12-08-2022 Creatinine [Mass/Vol] 1.83 mg/dL 0.55-1.02 [facility] Comment on above: The validity of the calculated GFR & GFRAA in patients over 70 years has not been determined. Clinical correlation is essential. Serum or plasma urea nitroge n measurement (mass/volume)Ordered By: Shameka Velasquez on 12-08-2022 Urea nitrogen [Mass/Vol] 40 mg/dL 7-18 [facility] XR FOOT GENERAL 3V AP/LAT/OB L RIGHTon 12-01-2022 [facility] Basophil percentageOrdered B y: Torsten Vann on 11-24-2022 Bilirubin [Mass/Vol] 0.60 mg/dL 0.20-1.00 [facility] Comment on above: For patients on eltr ombopag therapy, use of [place] TBIL is not recommended. Protein [Mass/Vol] 7.2 g/dL 6.4-8.2 [facility] Laboratory - Chemistry and C hemistry - challengeOrdered By: Torsten Vann on 11-24-2022 ALP [Catalytic activity/Vol] 103 U/L 45-117 [facility] ALT [Catalytic activity/Vol] 38 U/L 13-56 [facility] Globulin (S) [Mass/Vol] 3.4 g/dL 2.2-4.2 [facility] No Panel InformationOrdered By: Torsten Vann on 11-24-2022 Thyroid Stimulating Hormone (TSH) 0.42 uIU/mL 0.358-3.74 [facility] Vitamin D 25-Hydroxy 49.5 ng/mL [facility] Comment on above: Vitamin D 25(OH) Sta tus Range Deficiency <20 ng/mL (50nmol/L) Insufficiency 20 - 30 ng/mL (50 - 75 nmol/L) Sufficiency 30 - 100 ng/mL (75 - 250 nmol/L) Toxicity >100 ng/mL (>250 nmol/L) Serum or plasma albumin/glob ulin mass ratioOrdered By: Torsten Vann on 11-24-2022 Albumin/Globulin [Mass ratio] 1.1 {ratio} 0.9-2.4 [facility] Thin prep Papanicolaou smear with manual screeningOrdered By: Torsten Vann on 11-24-2022 Thin prep Papanicolaou smear with manual screening 28 U/L 15-37 [facility] Thin prep Papanicolaou smear with manual screening 5 5-15 [facility] XR FOOT GENERAL 3V AP/LAT/OB L RIGHTon 11-08-2022 [facility] XR Foot - right AP and Later al and obliqueon 11-08-2022 IMPRESSION: Acute nondisplaced fracture of the proximal fifth metatarsal shaft. Corporation Lawyer: STEPAN Transcribe Date/Time: Nov 08 2022 11:28A Dictated by : ELIZABETH GEORGE MD This examination was interpreted and the report reviewed and electronically signed by: ELIZABETH GEORGE MD on Nov 08 2022 11:29AM [facility] DIVISION OF RADIOLOGY * * *Final Report* * * DATE OF EXAM: Nov 08 2022 11:28AM WOX [id number] - XR FOOT 3V AP/LAT/OBL RT / PROCEDURE REASON: Foot pain, right * * * * Physician Interpretation * * * * CLINICAL INDICATION: Pain TECHNIQUE: 3 view radiographic study of the right foot COMPARISON: None FINDINGS: Acute, chance of areas, nondisplaced fracture of the proximal fifth metatarsal shaft. Scattered degenerative changes of the interphalangeal joints with joint space narrowing and hypertrophic change. Mild first metatarsophalangeal joint degenerative changes. Atherosclerotic calcification of the vasculature. DIVISION OF RADIOLOGY Provider, [facility] Jenise segura Christoval - 11/08/2022 * * *Final Report* * * DATE OF EXAM: Nov 08 2022 11:28AM WOX [id number] - XR FOOT 3V AP/LAT/OBL RT / PROCEDURE REASON: Foot pain, right * * * * Physician Interpretation * * * * CLINICAL INDICATION: Pain TECHNIQUE: 3 view radiographic study of the right foot COMPARISON: None FINDINGS: Acute, chance of areas, nondisplaced fracture of the proximal fifth metatarsal shaft. Scattered degenerative changes of the interphalangeal joints with joint space narrowing and hypertrophic change. Mild first metatarsophalangeal joint degenerative changes. Atherosclerotic calcification of the vasculature. IMPRESSION IMPRESSION: Acute nondisplaced fracture of the proximal fifth metatarsal shaft. Corporation Lawyer: STEPAN Transcribe Date/Time: Nov 08 2022 11:28A Dictated by : ELIZABETH GEORGE MD This examination was interpreted and the report reviewed and electronically signed by: ELIZABETH GEORGE MD on Nov 08 2022 11:29AM EST [facility] Radiology Study observation (narrative) [facility] XR Foot - right AP and Later al and obliqueOrdered By: [facility] Provider on 11-08-2022 [facility] XR HIP BILATERAL 5V PEL/AP/L AT EACH HIPon 10-28-2022 IMPRESSION: Mild hip degenerative change bilaterally. Corporation Lawyer: STEPAN Transcribe Date/Time: Oct 28 2022 9:25A Dictated by : JAYME RIDER MD This examination was interpreted and the report reviewed and electronically signed by: JAYME RIDER MD on Oct 28 2022 9:26AM EST DIVISION OF RADIOLOGY * * *Final Report* * * DATE OF EXAM: Oct 26 2022 2:59PM WOX [id number] - XR HIP SPENCER 5V PEL+ AP/LAT EA HIP / PROCEDURE REASON: Hip pain, unspecified laterality * * * * Physician Interpretation * * * * EXAMINATION: XR HIP SPENCER 5V PEL+ AP/LAT EA HIP HISTORY: pain for a couple of months in left hip only, upper lateral pelvis and sometimes in the left groin no inj Hip pain, unspecified laterality . TECHNIQUE: XR HIP SPENCER 5V PEL+ AP/LAT EA HIP Laterality: BILATERAL Number of different views (projections): 1 pelvis 2 hip M: XB_1 COMPARISON: RESULT: Maintained sacroiliac joints and pubic symphysis with degenerative findings. IVC filter is present. Mild osteoarthritis of both hip joints. No acute fracture or dislocation. There are no bony erosions. DIVISION OF RADIOLOGY Provider, [facility] - 10/28/2022 * * *Final Report* * * DATE OF EXAM: Oct 26 2022 2:59PM WOX 5353 - XR HIP SPENCER 5V PEL+ AP/LAT EA HIP / PROCEDURE REASON: Hip pain, unspecified laterality * * * * Physician Interpretation * * * * EXAMINATION: XR HIP SPENCER 5V PEL+ AP/LAT EA HIP HISTORY: pain for a couple of months in left hip only, upper lateral pelvis and sometimes in the left groin no inj Hip pain, unspecified laterality . TECHNIQUE: XR HIP SPENCER 5V PEL+ AP/LAT EA HIP Laterality: BILATERAL Number of different views (projections): 1 pelvis 2 hip M: XB_1 COMPARISON: RESULT: Maintained sacroiliac joints and pubic symphysis with degenerative findings. IVC filter is present. Mild osteoarthritis of both hip joints. No acute fracture or dislocation. There are no bony erosions. IMPRESSION IMPRESSION: Mild hip degenerative change bilaterally. Corporation Lawyer: STEPAN Transcribe Date/Time: Oct 28 2022 9:25A Dictated by : JAYME RIDER MD This examination was interpreted and the report reviewed and electronically signed by: JAYME RIDER MD on Oct 28 2022 9:26AM EST [facility] XR HIP BILATERAL 5V PEL/AP/L AT EACH HIPOrdered By: [facility] Provider on 10-28-2022 [facility] Laboratory - CoagulationOrde red By: Shameka Velasquez on 10-26-2022 INR Coag (Bld) [Relative time] 2.4 {INR} [facility] Comment on above: Critical Value > 4.0 Whole blood prothrombin time Ordered By: Shameka Velasquez on 10-26-2022 PT Coag (Bld) [Time] 25.8 s 11.7-14.9 [facility] XR HIP BILATERAL 5V PEL/AP/L AT EACH HIPon 10-26-2022 Radiology Study observation (narrative) [facility] Laboratory - CoagulationOrde red By: Shameka Velasquez on 10-11-2022 INR Coag (Bld) [Relative time] 3.2 {INR} [facility] Comment on above: Critical Value > 4.0 Whole blood prothrombin time Ordered By: Shameka Velasquez on 10-11-2022 PT Coag (Bld) [Time] 34.6 s 11.7-14.9 [facility] Laboratory - CoagulationOrde red By: Shameka Velasquez on 09-12-2022 INR Coag (Bld) [Relative time] 2.4 {INR} [facility] Comment on above: Critical Value > 4.0 Whole blood prothrombin time Ordered By: Shameka Velasquez on 09-12-2022 PT Coag (Bld) [Time] 25.7 s 11.7-14.9 [facility] INR in Blood by Coagulation assayOrdered By: Shameka Velasquez on 08-11-2022 INR Coag (Bld) [Relative time] 2.6 {INR} [facility] Laboratory - CoagulationOrde red By: Shameka Velasquez on 08-11-2022 PT Coag (PPP) [Time] 28.3 s 11.7-14.9 [facility] Basophil percentageOrdered B y: Jennifer Tarango on 07-26-2022 Basophil percentage 2.6 mg/dL 2.5-4.9 [facility] Chloride [Moles/Vol] 107 mmol/L 98-107 [facility] Glucose [Mass/Vol] 80 mg/dL 74-106 [facility] Potassium [Moles/Vol] 3.9 mmol/L 3.5-5.1 [facility] Sodium [Moles/Vol] 139 mmol/L 136-145 [facility] Laboratory - Chemistry and C hemistry - challengeOrdered By: Jennifer Tarango on 07-26-2022 CO2 [Moles/Vol] 23.0 mmol/L 21.0-32.0 [facility] Urea nitrogen/Creatinine [Mass ratio] 21.3 mg/mg 10-20 [facility] No Panel InformationOrdered By: Jennifer Tarango on 07-26-2022 Estimated GFR (MDRD) Amer 34 mL/min >60 [facility] Comment on above: GFR Calc Estimated GFR (MDRD) Non-Af Amer 28 mL/min >60 [facility] Comment on above: Non- GFR Calc Serum or plasma albumin scott urement (mass/volume)Ordered By: Jennifer Tarango on 07-26-2022 Albumin [Mass/Vol] 3.8 g/dL 3.2-5.0 [facility] Serum or plasma calcium scott urement (mass/volume)Ordered By: Jennifer Tarango on 07-26-2022 Calcium [Mass/Vol] 9.3 mg/dL 8.5-10.1 [facility] Serum or plasma creatinine m easurement (mass/volume)Ordered By: Jennifer Tarango on 07-26-2022 Creatinine [Mass/Vol] 1.83 mg/dL 0.55-1.02 [facility] Comment on above: The validity of the calculated GFR & GFRAA in patients over 70 years has not been determined. Clinical correlation is essential. Serum or plasma urea nitroge n measurement (mass/volume)Ordered By: Jennifer Tarango on 07-26-2022 Urea nitrogen [Mass/Vol] 39 mg/dL 09-06 [facility] Laboratory - CoagulationOrde red By: Shameka Velasquez on 07-08-2022 INR Coag (Bld) [Relative time] 2.1 {INR} [facility] Comment on above: Critical Value > 4.0 Whole blood prothrombin time Ordered By: Shameka Velasquez on 07-08-2022 PT Coag (Bld) [Time] 23.5 s 11.7-14.9 [facility] Basophil percentageOrdered B y: Dr. Tarango on 06-07-2022 Basophil percentage 1.5 mg/dL 2.5-4.9 [facility] Chloride [Moles/Vol] 109 mmol/L 98-107 [facility] Glucose [Mass/Vol] 82 mg/dL 74-106 [facility] Potassium [Moles/Vol] 4.1 mmol/L 3.5-5.1 [facility] Sodium [Moles/Vol] 136 mmol/L 136-145 [facility] Laboratory - Chemistry and C hemistry - challengeOrdered By: Dr. Tarango on 06-07-2022 CO2 [Moles/Vol] 18.0 mmol/L 21.0-32.0 [facility] Urea nitrogen/Creatinine [Mass ratio] 16.1 mg/mg 10- [facility] No Panel InformationOrdered By: Dr. Tarango on 06-07-2022 Estimated GFR (MDRD) Amer 40 mL/min >60 [facility] Comment on above: GFR Calc Estimated GFR (MDRD) Non-Af Amer 33 mL/min >60 [facility] Comment on above: Non- GFR Calc Serum or plasma albumin scott urement (mass/volume)Ordered By: Dr. Tarango on 06-07-2022 Albumin [Mass/Vol] 3.7 g/dL 3.2-5.0 [facility] Serum or plasma calcium scott urement (mass/volume)Ordered By: Dr. Tarango on 06-07-2022 Calcium [Mass/Vol] 8.7 mg/dL 8.5-10.1 [facility] Serum or plasma creatinine m easurement (mass/volume)Ordered By: Dr. Tarango on 06-07-2022 Creatinine [Mass/Vol] 1.61 mg/dL 0.55-1.02 [facility] Comment on above: The validity of the calculated GFR & GFRAA in patients over 70 years has not been determined. Clinical correlation is essential. Serum or plasma urea nitroge n measurement (mass/volume)Ordered By: Dr. Tarango on 06-07-2022 Urea nitrogen [Mass/Vol] 26 mg/dL 7-18 [facility] Basophil percentageOrdered B y: Dr. Tarango on 05-31-2022 Basophil percentage 2.9 mg/dL 2.5-4.9 [facility] Chloride [Moles/Vol] 109 mmol/L 98-107 [facility] Glucose [Mass/Vol] 98 mg/dL 74-106 [facility] Potassium [Moles/Vol] 3.9 mmol/L 3.5-5.1 [facility] Comment on above: Slight Hemolysis, Re sult may be falsely increased. Sodium [Moles/Vol] 139 mmol/L 136-145 [facility] Laboratory - Chemistry and C hemistry - challengeOrdered By: Dr. Tarango on 05-31-2022 CO2 [Moles/Vol] 24.0 mmol/L 21.0-32.0 [facility] Urea nitrogen/Creatinine [Mass ratio] 14.5 mg/mg 10-20 [facility] No Panel InformationOrdered By: Dr. Tarango on 05-31-2022 Estimated GFR (MDRD) Amer 28 mL/min >60 [facility] Comment on above: GFR Calc Estimated GFR (MDRD) Non-Af Amer 23 mL/min >60 [facility] Comment on above: Non- GFR Calc Serum or plasma albumin scott urement (mass/volume)Ordered By: Dr. Tarango on 05-31-2022 Albumin [Mass/Vol] 3.5 g/dL 3.2-5.0 [facility] Serum or plasma calcium scott urement (mass/volume)Ordered By: Dr. Tarango on 05-31-2022 Calcium [Mass/Vol] 9.2 mg/dL 8.5-10.1 [facility] Serum or plasma creatinine m easurement (mass/volume)Ordered By: Dr. Tarango on 05-31-2022 Creatinine [Mass/Vol] 2.20 mg/dL 0.55-1.02 [facility] Comment on above: The validity of the calculated GFR & GFRAA in patients over 70 years has not been determined. Clinical correlation is essential. Serum or plasma urea nitroge n measurement (mass/volume)Ordered By: Dr. Tarango on 05-31-2022 Urea nitrogen [Mass/Vol] 32 mg/dL 7-18 [facility] Laboratory - CoagulationOrde red By: Dr. Marte on 05-09-2022 INR Coag (Bld) [Relative time] 2.4 {INR} [facility] Comment on above: Critical Value > 4.0 Whole blood prothrombin time Ordered By: Dr. Marte on 05-09-2022 PT Coag (Bld) [Time] 25.9 s 11.7-14.9 [facility] Laboratory - CoagulationOrde red By: Dr. Marte on 03-25-2022 INR Coag (Bld) [Relative time] 2.4 {INR} [facility] Comment on above: Critical Value > 4.0 No Panel Informationon 03-25 INR International Normalized Ratio 2.4 [facility] Whole blood prothrombin time Ordered By: Dr. Marte on 03-25-2022 PT Coag (Bld) [Time] 28.3 s 11.7-14.9 [facility] Laboratory - CoagulationOrde red By: Dr. Marte on 03-10-2022 INR Coag (Bld) [Relative time] 3.3 {INR} [facility] Comment on above: Critical Value > 4.0 Whole blood prothrombin time Ordered By: Dr. Marte on 03-10-2022 PT Coag (Bld) [Time] 37.6 s 11.7-14.9 [facility] Laboratory - CoagulationOrde red By: Dr. Marte on 02-15-2022 INR Coag (Bld) [Relative time] 1.0 {INR} [facility] Comment on above: Critical Value > 4.0 Whole blood prothrombin time Ordered By: Dr. Marte on 02-15-2022 PT Coag (Bld) [Time] 13.0 s 11.7-14.9 [facility] Laboratory - Coagulationon 1 03-30-2021 INR Coag (Bld) [Relative time] 1.7 {INR} [facility] Work Phone: Comment on above: Critical Value > 4.0 Whole blood prothrombin time on 01-27-2022 PT Coag (Bld) [Time] 20.8 s 11.7-14.9 [facility] Work Phone: Basophil percentageOrdered B y: Shameka Velasquez on 01-25-2022 Chloride [Moles/Vol] 105 mmol/L 98-107 [facility] Glucose [Mass/Vol] 104 mg/dL 74-106 [facility] Comment on above: Fasting Glucose resu lt from 100 to 125 mg/dL suggests IMPAIRED HOMEOSTASIS per A.D.A. criteria. Potassium [Moles/Vol] 4.1 mmol/L 3.5-5.1 [facility] Sodium [Moles/Vol] 138 mmol/L 136-145 [facility] INR in Blood by Coagulation assayOrdered By: Dr. Marte on 01-25-2022 INR Coag (Bld) [Relative time] 11.9 {INR} [facility] Comment on above: ACRITICAL VALUE VERI FIED. CALLED TO RONNIE HAWKINS ([facility])01/25/22 1337 Omar Hernandez.RESULTS READ BACK BY SAME. Laboratory - Chemistry and C hemistry - challengeOrdered By: Shameka Velasquez on 01-25-2022 CO2 [Moles/Vol] 26.0 mmol/L 21.0-32.0 [facility] Urea nitrogen/Creatinine [Mass ratio] 15.2 mg/mg 10- [facility] Laboratory - CoagulationOrde red By: Dr. Marte on 01-25-2022 PT Coag (PPP) [Time] 92.3 s 11.7-14.9 [facility] No Panel InformationOrdered By: Shameka Velasquez on 01-25-2022 Estimated GFR (MDRD) Amer 34 mL/min >60 [facility] Comment on above: GFR Calc Estimated GFR (MDRD) Non-Af Amer 28 mL/min >60 [facility] Comment on above: Non- GFR Calc No Panel InformationOrdered By: Dr. Vann on 01-25-2022 Vitamin D 25-Hydroxy 39.0 ng/mL [facility] Comment on above: Vitamin D 25(OH) Sta tus Range Deficiency <20 ng/mL (50nmol/L) Insufficiency 20 - 30 ng/mL (50 - 75 nmol/L) Sufficiency 30 - 100 ng/mL (75 - 250 nmol/L) Toxicity >100 ng/mL (>250 nmol/L) Serum or plasma calcium scott urement (mass/volume)Ordered By: Shameka Velasquez on 01-25-2022 Calcium [Mass/Vol] 9.3 mg/dL 8.5-10.1 [facility] Serum or plasma creatinine m easurement (mass/volume)Ordered By: Shameka Velasquez on 01-25-2022 Creatinine [Mass/Vol] 1.84 mg/dL 0.55-1.02 [facility] Comment on above: The validity of the calculated GFR & GFRAA in patients over 70 years has not been determined. Clinical correlation is essential. Serum or plasma urea nitroge n measurement (mass/volume)Ordered By: Shameka Velasquez on 01-25-2022 Urea nitrogen [Mass/Vol] 28 mg/dL 7-18 [facility] Thin prep Papanicolaou smear with manual screeningOrdered By: Shameka Velasquez on 01-25-2022 Thin prep Papanicolaou smear with manual screening 7 5-15 [facility] Laboratory - CoagulationOrde red By: Dr. Marte on 12-28-2021 INR Coag (Bld) [Relative time] 2.3 {INR} [facility] Comment on above: Critical Value > 4.0 Whole blood prothrombin time Ordered By: Dr. Marte on 12-28-2021 PT Coag (Bld) [Time] 26.4 s 11.7-14.9 [facility] TAE SCREENINGon 12-08-2021 [facility] Culture, urineOrdered By: Dr Alaina Tarango on 11-26-2021 Bacteria identified Cx Nom (U) Escherichia coli [facility] Basophil percentageOrdered B y: Dr. Tarango on 11-24-2021 Basophil percentage 2.3 mg/dL 2.5-4.9 [facility] Chloride [Moles/Vol] 111 mmol/L 98-107 [facility] Glucose [Mass/Vol] 80 mg/dL 74-106 [facility] Potassium [Moles/Vol] 4.5 mmol/L 3.5-5.1 [facility] Sodium [Moles/Vol] 141 mmol/L 136-145 [facility] Laboratory - Chemistry and C hemistry - challengeOrdered By: Dr. Tarango on 11-24-2021 CO2 [Moles/Vol] 22.0 mmol/L 21.0-32.0 [facility] Urea nitrogen/Creatinine [Mass ratio] 18.7 mg/mg 10- [facility] No Panel InformationOrdered By: Dr. Tarango on 11-24-2021 Estimated GFR (MDRD) Amer 42 mL/min >60 [facility] Comment on above: GFR Calc Estimated GFR (MDRD) Non-Af Amer 34 mL/min >60 [facility] Comment on above: Non- GFR Calc Serum or plasma albumin scott urement (mass/volume)Ordered By: Dr. Tarango on 11-24-2021 Albumin [Mass/Vol] 3.4 g/dL 3.2-5.0 [facility] Serum or plasma calcium scott urement (mass/volume)Ordered By: Dr. Tarango on 11-24-2021 Calcium [Mass/Vol] 9.3 mg/dL 8.5-10.1 [facility] Serum or plasma creatinine m easurement (mass/volume)Ordered By: Dr. Tarango on 11-24-2021 Creatinine [Mass/Vol] 1.55 mg/dL 0.55-1.02 [facility] Comment on above: The validity of the calculated GFR & GFRAA in patients over 70 years has not been determined. Clinical correlation is essential. Serum or plasma urea nitroge n measurement (mass/volume)Ordered By: Dr. Tarango on 11-24-2021 Urea nitrogen [Mass/Vol] 29 mg/dL 09-06 [facility] Absolute lymphocyte counton 11-18-2021 Lymphocytes Auto (Unsp spec) [#/Vol] 1.02 10*3/uL 0.83-4.51 [facility] Work Phone: Activated partial thrombopla stin time (aPTT) in platelet poor plasma by coagulation aon 11-18-2021 aPTT Coag (PPP) [Time] 80.0 s 24.1-36.2 [facility] Work Phone: Basophil percentageon 2021 Basophils/100 WBC (Bld) 0.2 % 0-1 [facility] Work Phone: Chloride [Moles/Vol] 113 mmol/L 98-107 [facility] Work Phone: Eosinophils/100 WBC (Bld) 0.0 % 0-5 [facility] Work Phone: Glucose [Mass/Vol] 157 mg/dL 74-106 [facility] Work Phone: Comment on above: Fasting Glucose resu lt greater than or equal to 126 mg/dL suggests DIABETES MELLITUS per A.D.A. criteria. Neutrophils (Bld) [#/Vol] 8.5 10*3/uL 2.0-7.7 [facility] Work Phone: Neutrophils/100 WBC (Bld) 82.3 % 47-70 [facility] Work Phone: [phone] Potassium [Moles/Vol] 4.0 mmol/L 3.5-5.1 [facility] Work Phone: Sodium [Moles/Vol] 142 mmol/L 136-145 [facility] Work Phone: [phone] WBC (Bld) [#/Vol] 10.3 10*3/uL 4.4-11.0 [facility] Work Phone: [phone] Blood erythrocytes count (nu mber/volume)on 11-18-2021 RBC (Bld) [#/Vol] 4.15 10*6/uL 4.2-5.4 [facility] Work Phone: Blood hemoglobin measurement (mass/volume)on 11-18-2021 Hemoglobin (Bld) [Mass/Vol] 12.4 g/dL 12.0-15.0 [facility] Work Phone: Blood lymphocytes/100 leukoc yteson 11-18-2021 Lymphocytes/100 WBC (Bld) 9.9 % 19-41 [facility] Work Phone: Blood monocytes/100 leukocyt eson 11-18-2021 Monocytes/100 WBC (Bld) 7.2 % 0-10 [facility] Work Phone: Blood platelet mean volumeon 11-18-2021 Platelet mean volume (Bld) [Entitic vol] 11.6 fL 6.2-12.0 [facility] Work Phone: Determination of erythrocyte mean corpuscular volume (MCV)on 11-18-2021 MCV (RBC) [Entitic vol] 90.6 fL 81-99 [facility] Work Phone: Hematocrit Auto (Bld) [Volum e fraction]on 11-18-2021 Hematocrit (Bld) [Volume fraction] 37.6 % 37-47 [facility] Work Phone: INR in Blood by Coagulation assayon 11-18-2021 INR Coag (Bld) [Relative time] 2.2 {INR} [facility] Work Phone: Laboratory - Chemistry and C hemistry - challengeon 11-18-2021 CO2 [Moles/Vol] 18.0 mmol/L 21.0-32.0 [facility] Work Phone: Urea nitrogen/Creatinine [Mass ratio] 26.5 mg/mg 10-20 [facility] Work Phone: Laboratory - Coagulationon 0 11-18-2021 PT Coag (PPP) [Time] 24.0 s 11.7-14.9 [facility] Work Phone: Laboratory - Hematology and Cell countson 11-18-2021 Erythrocyte distribution width (RBC) [Entitic vol] 48.8 fL 35.1-43.9 [facility] Work Phone: Erythrocyte distribution width (RBC) [Ratio] 14.6 % 11.6-14.6 [facility] Work Phone: Immature granulocytes/100 WBC (Bld) 0.400 % 0.0-0.9 [facility] Work Phone: Comment on above: IG% - Immature Granu locytes (promyelocytes, myelocytes and metamyelocytes) > 1% indicates that a LEFT SHIFT is Present. MCH (RBC) [Entitic mass] 29.9 pg 27.0-32.0 [facility] Work Phone: Nucleated RBC/100 WBC (Bld) [Ratio] 0 % 0-5 [facility] Work Phone: MCHC Auto (RBC) [Mass/Vol]on 11-18-2021 MCHC (RBC) [Mass/Vol] 33.0 g/dL 32-36 [facility] Work Phone: No Panel Informationon 11-18 Estimated Creatinine Clearance Calc 22.09 ml/min [facility] Work Phone: Estimated GFR (MDRD) Amer 38 mL/min >60 [facility] Work Phone: Comment on above: GFR Calc Estimated GFR (MDRD) Non-Af Amer 32 mL/min >60 [facility] Work Phone: Comment on above: Non- GFR Calc Platelets bldon 11-18-2021 Platelets (Bld) [#/Vol] 190 10*3/uL 150-450 [facility] Work Phone: Serum or plasma calcium scott urement (mass/volume)on 11-18-2021 Calcium [Mass/Vol] 7.9 mg/dL 8.5-10.1 [facility] Work Phone: Serum or plasma creatinine m easurement (mass/volume)on 11-18-2021 Creatinine [Mass/Vol] 1.66 mg/dL 0.55-1.02 [facility] Work Phone: Comment on above: The validity of the calculated GFR & GFRAA in patients over 70 years has not been determined. Clinical correlation is essential. Serum or plasma urea nitroge n measurement (mass/volume)on 11-18-2021 Urea nitrogen [Mass/Vol] 44 mg/dL 7-18 [facility] Work Phone: Thin prep Papanicolaou smear with manual screeningon 11-18-2021 Thin prep Papanicolaou smear with manual screening 11 5-15 [facility] Work Phone: Basophil percentageon 2021 Basophil percentage >100 SEEN /hpf 0-5 [facility] Work Phone: Lactate [Moles/Vol] 1.0 mmol/L 0.4-2.0 [facility] Work Phone: Bilirubin Test strip Ql (U)o n 11-17-2021 Bilirubin Ql (U) Negative Negative [facility] Work Phone: Ketones Test strip Ql (U)on 11-17-2021 Ketones Ql (U) 15 mg/dl Negative [facility] Work Phone: Mucus LM Ql (Urine sed)on Mucus Ql (Urine sed) 0 SEEN /hpf [facility] Work Phone: Nitrite Test strip Ql (U)on 11-17-2021 Nitrite Ql (U) Negative Negative [facility] Work Phone: No Panel Informationon 11-17 Troponin I High Sensitivity 482 pg/mL 3.0-54.0 [facility] Work Phone: Comment on above: Critical Result(s) C alled at: 10:36:40 11/17/2021 by: Jarett Burk RN (ICU). Results read back by same. Please Note: New Test Units and Gender Specific Reference Ranges. For more information see Policy Stat Procedure [place] High Sensitivity Troponin (TNIH) and attachments. Protein Test strip Ql (U)on 11-17-2021 Protein Ql (U) 15 mg/dl Negative [facility] Work Phone: Squamous epithelial cells de tection in urine sediment by light microscopyon 11-17-2021 Epithelial cells.squamous LM Ql (Urine sed) 0-5 SEEN /hpf 5-10 [facility] Work Phone: Urine blood detectionon 10-22 RBC Ql (U) 10 /ul Negative [facility] Work Phone: RBC Ql (U) 0-5 SEEN /hpf 0-5 [facility] Work Phone: Urine clarityon 11-17-2021 Clarity (U) Sl. Cloudy Clear [facility] Work Phone: Urine color determinationon 11-17-2021 Color (U) Yellow Yellow [facility] Work Phone: Urine glucose detectionon Glucose Ql (U) Normal mg/dl Normal [facility] Work Phone: Urine leukocyte esterase det ection by dipstickon 11-17-2021 Leukocyte esterase Test strip Ql (U) 500 /ul Negative [facility] Work Phone: Urine pHon 11-17-2021 pH (U) 5.0 [pH] 5.0 - 8.0 [facility] Work Phone: Urine sediment bacteria coun t by microscopy (number/high power field)on 11-17-2021 Bacteria LM.HPF (Urine sed) [#/Area] RARE /hpf None Seen [facility] Work Phone: Urine specific gravity measu rementon 11-17-2021 Specific gravity (U) [Rel density] 1.015 1.002-1.030 [facility] Work Phone: Urobilinogen Auto test strip Ql (U)on 11-17-2021 Urobilinogen Ql (U) Normal mg/dl Normal [facility] Work Phone: Absolute lymphocyte counton 11-16-2021 Lymphocytes Auto (Unsp spec) [#/Vol] 3.63 10*3/uL 0.83-4.51 [facility] Work Phone: Basophil percentageon 2021 Basophils/100 WBC (Bld) 0.9 % 0-1 [facility] Work Phone: [phone] Bilirubin [Mass/Vol] 1.00 mg/dL 0.20-1.00 [facility] Work Phone: Comment on above: For patients on eltr ombopag therapy, use of Dimension [place] TBIL is not recommended. Chloride [Moles/Vol] 107 mmol/L 98-107 [facility] Work Phone: Eosinophils/100 WBC (Bld) 2.2 % 0-5 [facility] Work Phone: Glucose [Mass/Vol] 94 mg/dL 74-106 [facility] Work Phone: Neutrophils (Bld) [#/Vol] 6.3 10*3/uL 2.0-7.7 [facility] Work Phone: [phone] Neutrophils/100 WBC (Bld) 51.5 % 47-70 [facility] Work Phone: Potassium [Moles/Vol] 4.6 mmol/L 3.5-5.1 [facility] Work Phone: [phone] Protein [Mass/Vol] 6.4 g/dL 6.4-8.2 [facility] Work Phone: [phone] Sodium [Moles/Vol] 140 mmol/L 136-145 [facility] Work Phone: [phone] WBC (Bld) [#/Vol] 12.3 10*3/uL 4.4-11.0 [facility] Work Phone: [phone] Blood erythrocytes count (nu mber/volume)on 11-16-2021 RBC (Bld) [#/Vol] 5.36 10*6/uL 4.2-5.4 [facility] Work Phone: [phone] Blood hemoglobin measurement (mass/volume)on 11-16-2021 Hemoglobin (Bld) [Mass/Vol] 16.4 g/dL 12.0-15.0 [facility] Work Phone: [phone] Blood lymphocytes/100 leukoc yteson 11-16-2021 Lymphocytes/100 WBC (Bld) 29.6 % 19-41 [facility] Work Phone: Blood manual differential co mment interpretation (narrative result)on 11-16-2021 Manual differential comment Rafael (Bld) [Interp] SEE COMMENT [facility] Work Phone: Comment on above: MONOCYTOSIS NOTED Blood monocytes/100 leukocyt eson 11-16-2021 Monocytes/100 WBC (Bld) 14.8 % 0-10 [facility] Work Phone: Blood platelet adequacy dete ction by light microscopyon 11-16-2021 Platelets LM Ql (Bld) ADEQUATE ADEQ [facility] Work Phone: Blood platelet mean volumeon 11-16-2021 Platelet mean volume (Bld) [Entitic vol] 11.8 fL 6.2-12.0 [facility] Work Phone: Determination of erythrocyte mean corpuscular volume (MCV)on 11-16-2021 MCV (RBC) [Entitic vol] 92.7 fL 81-99 [facility] Work Phone: Hematocrit Auto (Bld) [Volum e fraction]on 11-16-2021 Hematocrit (Bld) [Volume fraction] 49.7 % 37-47 [facility] Work Phone: INR in Blood by Coagulation assayon 11-16-2021 INR Coag (Bld) [Relative time] 1.5 {INR} [facility] Work Phone: Laboratory - Chemistry and C hemistry - challengeon 11-16-2021 ALP [Catalytic activity/Vol] 89 U/L 45-117 [facility] Work Phone: ALT [Catalytic activity/Vol] 25 U/L 13-56 [facility] Work Phone: CO2 [Moles/Vol] 23.0 mmol/L 21.0-32.0 [facility] Work Phone: Globulin (S) [Mass/Vol] 3.3 g/dL 2.2-4.2 [facility] Work Phone: Urea nitrogen/Creatinine [Mass ratio] 14.1 mg/mg 10-20 [facility] Work Phone: Laboratory - Coagulationon 0 11-16-2021 PT Coag (PPP) [Time] 17.8 s 11.7-14.9 [facility] Work Phone: Laboratory - Hematology and Cell countson 11-16-2021 Anisocytosis Ql (Bld) RARE [facility] Work Phone: Erythrocyte distribution width (RBC) [Entitic vol] 51.6 fL 35.1-43.9 [facility] Work Phone: Erythrocyte distribution width (RBC) [Ratio] 15.1 % 11.6-14.6 [facility] Work Phone: Immature granulocytes/100 WBC (Bld) 1.000 % 0.0-0.9 [facility] Work Phone: Comment on above: IG% - Immature Granu locytes (promyelocytes, myelocytes and metamyelocytes) > 1% indicates that a LEFT SHIFT is Present. MCH (RBC) [Entitic mass] 30.6 pg 27.0-32.0 [facility] Work Phone: Nucleated RBC/100 WBC (Bld) [Ratio] 0 % 0-5 [facility] Work Phone: MCHC Auto (RBC) [Mass/Vol]on 11-16-2021 MCHC (RBC) [Mass/Vol] 33.0 g/dL 32-36 [facility] Work Phone: Macrocytes detectionon 11-16 Macrocytes Ql (Bld) RARE [facility] Work Phone: No Panel Informationon 11-16 Estimated Creatinine Clearance Calc 13.63 ml/min [facility] Work Phone: Estimated GFR (MDRD) Amer 22 mL/min >60 [facility] Work Phone: Comment on above: GFR Calc Estimated GFR (MDRD) Non-Af Amer 18 mL/min >60 [facility] Work Phone: Comment on above: Non- GFR Calc Troponin I High Sensitivity 619 pg/mL 3.0-54.0 [facility] Work Phone: Comment on above: Critical Result(s) C alled at: 23:23:33 11/16/2021 by: BALDO BARRETO TO DONALD STOKES. Results read back by same. Please Note: New Test Units and Gender Specific Reference Ranges. For more information see Policy Stat Procedure [place] High Sensitivity Troponin (TNIH) and attachments. Platelets bldon 11-16-2021 Platelets (Bld) [#/Vol] 220 10*3/uL 150-450 [facility] Work Phone: RBC morphologyon 11-16-2021 RBC morphology finding Nom (Bld) N CHROM NORMAL NORM C&C [facility] Work Phone: Review by pathologiston 10-22 Pathologist review Rafael (Unsp spec) [Interp] Agnieszka venegas [facility] Work Phone: Pathologist review Rafael (Unsp spec) [Interp] Reviewed [facility] Work Phone: Comment on above: Previous reported re sult: Agnieszka rubi Edited by: RGODWIGHT on 11/17/21:1214Leukocytosis. PolycythemiaClinical correlation necessary.Alber Mccracken M.D. 11/17/21 AMENDED REPORT 11/17/21 1214 PATH REV previously reported as: Agnieszka venegas Serum or plasma albumin scott urement (mass/volume)on 11-16-2021 Albumin [Mass/Vol] 3.1 g/dL 3.2-5.0 [facility] Work Phone: Serum or plasma albumin/glob ulin mass ratioon 11-16-2021 Albumin/Globulin [Mass ratio] 0.9 {ratio} 0.9-2.4 [facility] Work Phone: Serum or plasma calcium scott urement (mass/volume)on 11-16-2021 Calcium [Mass/Vol] 9.9 mg/dL 8.5-10.1 [facility] Work Phone: Serum or plasma creatinine m easurement (mass/volume)on 11-16-2021 Creatinine [Mass/Vol] 2.69 mg/dL 0.55-1.02 [facility] Work Phone: Comment on above: The validity of the calculated GFR & GFRAA in patients over 70 years has not been determined. Clinical correlation is essential. Serum or plasma urea nitroge n measurement (mass/volume)on 11-16-2021 Urea nitrogen [Mass/Vol] 38 mg/dL 7-18 [facility] Work Phone: Thin prep Papanicolaou smear with manual screeningon 11-16-2021 Thin prep Papanicolaou smear with manual screening 29 U/L 15-37 [facility] Work Phone: Thin prep Papanicolaou smear with manual screening 10 5-15 [facility] Work Phone: Laboratory - Coagulationon 0 11-02-2021 INR Coag (Bld) [Relative time] 2.6 {INR} [facility] Work Phone: Comment on above: Critical Value > 4.0 Whole blood prothrombin time on 11-02-2021 PT Coag (Bld) [Time] 30.3 s 11.7-14.9 [facility] Work Phone: INR in Blood by Coagulation assayon 09-28-2021 INR Coag (Bld) [Relative time] 2.1 {INR} [facility] Work Phone: Laboratory - Coagulationon 0 09-28-2021 PT Coag (PPP) [Time] 23.2 s 11.7-14.9 [facility] Work Phone: Laboratory - Coagulationon 0 08-30-2021 INR Coag (Bld) [Relative time] 2.2 {INR} [facility] Work Phone: Comment on above: Critical Value > 4.0 Whole blood prothrombin time on 08-30-2021 PT Coag (Bld) [Time] 26.3 s 11.7-14.9 [facility] Work Phone: Laboratory - Coagulationon 0 07-26-2021 INR Coag (Bld) [Relative time] 2.7 {INR} [facility] Work Phone: Comment on above: Critical Value > 4.0 Whole blood prothrombin time on 07-26-2021 PT Coag (Bld) [Time] 30.6 s 11.7-14.9 [facility] Work Phone: Laboratory - Coagulationon 0 06-25-2021 INR Coag (Bld) [Relative time] 2.2 {INR} [facility] Work Phone: Comment on above: Critical Value > 4.0 Whole blood prothrombin time on 06-25-2021 PT Coag (Bld) [Time] 26.3 s 11.7-14.9 [facility] Work Phone: Laboratory - Coagulationon 0 05-27-2021 INR Coag (Bld) [Relative time] 2.7 {INR} [facility] Work Phone: Comment on above: Critical Value > 4.0 Whole blood prothrombin time on 05-27-2021 PT Coag (Bld) [Time] 31.5 s 11.7-14.9 [facility] Work Phone: Laboratory - Coagulationon 0 04-29-2021 INR Coag (Bld) [Relative time] 2.3 {INR} [facility] Work Phone: Comment on above: Critical Value > 4.0 Whole blood prothrombin time on 04-29-2021 PT Coag (Bld) [Time] 27.2 s 11.7-14.9 [facility] Work Phone: Laboratory - Coagulationon 0 03-31-2021 INR Coag (Bld) [Relative time] 2.4 {INR} [facility] Work Phone: Comment on above: Critical Value > 4.0 Whole blood prothrombin time on 03-31-2021 PT Coag (Bld) [Time] 27.6 s 11.9-14.4 [facility] Work Phone: Laboratory - Coagulationon 0 03-02-2021 INR Coag (Bld) [Relative time] 2.0 {INR} [facility] Work Phone: Comment on above: Critical Value > 4.0 Whole blood prothrombin time on 03-02-2021 PT Coag (Bld) [Time] 23.6 s 11.9-14.4 [facility] Work Phone: Laboratory - Coagulationon 1 04-04-2020 INR Coag (Bld) [Relative time] 2.0 {INR} [facility] Work Phone: Comment on above: Critical Value > 4.0 Whole blood prothrombin time on 02-01-2021 PT Coag (Bld) [Time] 23.0 s 11.9-14.4 [facility] Work Phone: CBCon 05-08-2020 Erythrocyte distribution width (RBC) [Ratio] 15.7 % High 11.5 - 14.5 [facility] Comment on above: Performed By: #### C BC #### [address] [id number] Hematocrit (Bld) [Volume fraction] 29.4 % Low 36.0 - 46.0 [facility] Comment on above: Performed By: #### C BC #### [address] [id number] Hemoglobin (Bld) [Mass/Vol] 9.5 g/dL Low 12.0 - 16.0 [facility] Comment on above: Performed By: #### C BC #### [address] [id number] MCHC (RBC) [Mass/Vol] 32.3 g/dL Normal 32.0 - 36.0 [facility] Comment on above: Performed By: #### C BC #### [address] [id number] MCV (RBC) [Entitic vol] 92 fL Normal 80 - 100 [facility] Comment on above: Performed By: #### C BC #### [address] [id number] Platelets (Bld) [#/Vol] 292 10*3/uL Normal 150 - 450 [facility] Comment on above: Performed By: #### C BC #### [address] [id number] RBC (Bld) [#/Vol] 3.21 x10E12/L Low 4.00 - 5.20 [facility] Comment on above: Performed By: #### C BC #### [address] [id number] WBC (Bld) [#/Vol] 16.2 10*3/uL High 4.4 - 11.3 [facility] Comment on above: Performed By: #### C BC #### [address] [id number] COMPREHENSIVE PANELon 2020 Albumin [Mass/Vol] 2.8 g/dL Low 3.4 - 5.0 [facility] Comment on above: Performed By: #### C A #### [address] [id number] ALP [Catalytic activity/Vol] 85 U/L Normal 33 - 136 [facility] Comment on above: Performed By: #### C A #### [address] [id number] ALT [Catalytic activity/Vol] 28 U/L Normal 7 - 45 [facility] Comment on above: Result Comment: Liz ents treated with Sulfasalazine may generate falsely decreased results for ALT. Performed By: #### C A #### [address] [id number] Anion gap [Moles/Vol] 13 mmol/L Normal 10 - 20 [facility] Comment on above: Performed By: #### C A #### [address] [id number] AST [Catalytic activity/Vol] 17 U/L Normal 9 - 39 [facility] Comment on above: Performed By: #### C A #### [address] [id number] Bilirubin [Mass/Vol] 0.8 mg/dL Normal 0.0 - 1.2 [facility] Comment on above: Performed By: #### C A #### [address] [id number] Calcium [Mass/Vol] 9.0 mg/dL Normal 8.6 - 10.3 [facility] Comment on above: Performed By: #### C A #### [address] [id number] Chloride [Moles/Vol] 101 mmol/L Normal 98 - 107 [facility] Comment on above: Performed By: #### C A #### [address] [id number] Creatinine [Mass/Vol] 1.87 mg/dL High 0.50 - 1.05 [facility] Comment on above: Performed By: #### C A #### [address] [id number] GFR- AM. 31 mL/min/1.73m2 Abnormal >60 [facility] Comment on above: Result Comment: CALC ULATIONS OF ESTIMATED GFR ARE PERFORMED USING THE MDRD STUDY EQUATION FOR THE IDMS-TRACEABLE CREATININE METHODS. CLIN CHEM 2007;53:766-72 Performed By: #### C A #### [address] [id number] GFR-NON AM. 26 mL/min/1.73m2 Abnormal >60 [facility] Comment on above: Performed By: #### C A #### [address] [id number] Glucose [Mass/Vol] 92 mg/dL Normal 74 - 99 [facility] Comment on above: Performed By: #### C A #### [address] [id number] HCO3 (Bld) [Moles/Vol] 30 mmol/L Normal 21 - 32 [facility] Comment on above: Performed By: #### C A #### [address] [id number] Potassium [Moles/Vol] 4.0 mmol/L Normal 3.5 - 5.3 [facility] Comment on above: Performed By: #### C A #### [address] [id number] Protein [Mass/Vol] 4.8 g/dL Low 6.4 - 8.2 [facility] Comment on above: Performed By: #### C A #### [address] [id number] Sodium [Moles/Vol] 140 mmol/L Normal 136 - 145 [facility] Comment on above: Performed By: #### C A #### [address] [id number] Urea nitrogen [Mass/Vol] 50 mg/dL High 6 - 23 [facility] Comment on above: Performed By: #### C A #### [address] [id number] Daily Progress Note-Endocrin litzy 05-08-2020 Daily Progress Note-Endocrinology Service: Endocrinology Subjective Data: LINDA PERALTA is a 75 year old Female who is Hospital Day # 7. Additional Information: Patient is doing quite well lying in bed. She has been weak and needs rehabilitation for walking since she has been ill for many days with long hospitalization. Her labs were reviewed Objective Data: Objective Information: T PRBPSpO2 [id number]/9499% Date/Time05/08 14: 14: 14: 14: 14:14 Range(35.8C - 37.6C ) (71 - 80 ) (18 - 20 ) (143 - 174 )/ (86 - 99 ) (95% - 99% ) Highest temp of 37.6 C was recorded at 05/08 7:55 Pain reported at 05/08 9:31: 0 = None ---- Intake and Output ----- Mn/Dy/[facility]Out[facility] May 08, 2020 2:00 [id number] May 08, 2020 6:00 [id number] May 07, 2020 10:00 [id number] The Intake and Output Totals for the last 24 hours are: [facility]Out[facility]xicoNet [id number] Physical Exam by System: Constitutional: Well developed, awake/alert Medication: Medications: Continuous Medications -------- No continuous medications are active Scheduled Medications -------- 1. Allopurinol: 200 mg Oral Every 24 Hours 2. amLODIPine (NORVASC): 5 mg Oral Daily 3. Atorvastatin: 10 mg Oral Daily 4. Fluticasone 50 microgram/ Nasal Inhalation: 1 spray(s) Each Nostril Daily 5. Hydrocortisone: 10 mg Oral Daily 6. Hydrocortisone: 20 mg Oral Daily 1800 7. Menthol 0.44% - Zinc Oxide 20.625% Topical: 1 application(s) Topical 3 Times a Day 8. Pantoprazole: 40 mg Oral Daily 9. Warfarin: 2.5 mg Oral Daily PRN Medications -------- 1. Acetaminophen: 650 mg Oral Every 4 Hours 2. hydrALAZINE (APRESOLINE) Injectable: 5 mg IntraVenous Push Every 6 Hours 3. Magnesium Hydroxide -Al Hydrox -Simethicone Oral Liquid: 30 mL Oral Every 4 Hours 4. Morphine Injectable: 1 mg IntraVenous Push Every 4 Hours 5. Nitroglycerin SubLingual: 0.4 mg SubLingual Every 5 Minutes 6. Ondansetron Injectable: 4 mg IntraVenous Push Every 4 Hours Conditional Medication Orders -------- 1. Perflutren Lipid Microsphere (Activated) 1.3 mL / NaCL 0.9% T.V. 10 mL Injectable: 0.5 mL IntraVenous Push Once Currently Suspended Medications -------- 1. Fludrocortisone: 0.1 mg Oral Daily Recent Lab Results: Results: CBC: 05/08/2020 05:22 \ Hgb / \ 9.5 L / WBC Plt 16.2 H 292 / Hct \ / 29.4 L \ RBC: 3.21 L MCV: 92 CMP: 05/08/2020 05:22 NA+ Cl- BUN / 140 101 50 H / -------- Glucose --- 92 K+ HCO3- Creat \ 4.0 30 1.87 H \ \ T Bili / \ 0.8 / AST x ---- x ALT 17 x ---- x 28 / Alk P \ / 85 \ Calcium : 9.0 Anion Gap : 13 Albumin : 2.8 L T Protein : 4.8 L I have reviewed these laboratory results: Comprehensive Metabolic Panel Trending View [id number] 05:22:00 07-May-2020 05:42:00 Glucose, Serum92 86 NA140 136 K4.0 4.0 CL101 99 Bicarbonate, Serum30 27 Anion Gap, Serum13 14 BUN50 H 55 H CREAT1.87 H 1.95 H GFR-Non Inaextzo72 A 25 A GFR- Twzdchww25 A 30 A Calcium, Serum9.0 9.0 ALB2.8 L 2.9 L ALKP85 80 T Pro4.8 L 5.0 L T Bili0.8 0.9 Alanine Aminotransferase, Serum28 31 Aspartate Transaminase, Serum17 20 Complete Blood Count 08-May-2020 05:22:00 ResultValue White Blood Cell Count 16.2 H Red Blood Cell Count 3.21 L HGB 9.5 L HCT 29.4 L MCV 92 MCHC 32.3 PLT 292 RDW-CV 15.7 H Phosphorus, Serum 07-May-2020 05:42:00 ResultValue Phosphorus, Serum 3.3 Uric Acid, Serum 07-May-2020 05:42:00 ResultValue Uric Acid, Serum 8.1 H Radiology Results: Results: No Results have been selected. Please select Results from the Available Results list before marking as Reviewed. Assessment and Plan: Code Status: Code StatusDNAR with Added Limitations Consult Status: Consult Status (select all that apply): follow-up after discharge Impression 1: Adrenal insufficiency Plan for Impression 1: The patient is quite stable and doing well she is hypertensive and is being treated for her hypertension with additional medication. She's been taken off the Florinef. She is back on her oral hydrocortisone 20 mg to be given in the morning and 10 mg in the evening. She should likely have some lab work done including his BMP and CBC in the next week is able to discharge to rehabilitation Impression 2: Hypercalcemia Plan for Impression 2: Appears to be in acute it has been resolved with fluids and Lasix. Her numbers look good and less need to be treated in the next week Electronic Signatures: Alexander Gregory) (Signed 08-May-2020 16:01) Authored: Service, Subjective Data, Objective Data, Assessment and Plan, Note Completion Last Updated: 08-May-2020 16:01 by Alexander Gregory) Normal [facility] Daily Progress Note-General Internal Medicineon 05-08-2020 Daily Progress Note-General Internal Medicine Service: General Internal Medicine Subjective Data: LINDA PERALTA is a 75 year old Female who is Hospital Day # 7. And examined, denies any fever, chills, chest pain, shortness of breath. Feels much improved. Rest of the ROS is negative. Objective Data: Objective Information: T PRBPSpO2 [id number]/9699% Date/Time05/08 7: 7: 7: 7: 7:55 Range(35.8C - 37.6C ) (71 - 82 ) (18 - 20 ) (131 - 174 )/ (86 - 99 ) (95% - 99% ) Highest temp of 37.6 C was recorded at 05/08 7:55 Pain reported at 05/08 9:31: 0 = None ---- Intake and Output ----- [facility], 2020 6:00 [id number] May 07, 2020 10:00 [id number] May 07, 2020 2:00 [id number] The Intake and Output Totals for the last 24 hours are: IntakeOutputNet [id number] Physical Exam by System: Constitutional: Well developed, awake/alert/oriented x3, no distress, alert and cooperative Respiratory/Thorax: Patent airways, CTAB, normal breath sounds with good chest expansion, thorax symmetric Cardiovascular: normal S 1and S 2 Gastrointestinal: Positive bowel sounds soft, suprapubic tenderness Musculoskeletal: ROM intact, no joint swelling, normal strength Extremities: Trace bipedal edema Neurological: alert and oriented x3, intact senses, motor, normal strength Psychological: Appropriate mood and behavior Medication: Medications: Continuous Medications -------- No continuous medications are active Scheduled Medications -------- 1. Allopurinol: 200 mg Oral Every 24 Hours 2. Atorvastatin: 10 mg Oral Daily 3. Fluticasone 50 microgram/ Nasal Inhalation: 1 spray(s) Each Nostril Daily 4. Hydrocortisone: 10 mg Oral Daily 5. Hydrocortisone: 20 mg Oral Daily 1800 6. Menthol 0.44% - Zinc Oxide 20.625% Topical: 1 application(s) Topical 3 Times a Day 7. Pantoprazole: 40 mg Oral Daily 8. Warfarin: 2.5 mg Oral Daily PRN Medications -------- 1. Acetaminophen: 650 mg Oral Every 4 Hours 2. hydrALAZINE (APRESOLINE) Injectable: 5 mg IntraVenous Push Every 6 Hours 3. Magnesium Hydroxide -Al Hydrox -Simethicone Oral Liquid: 30 mL Oral Every 4 Hours 4. Morphine Injectable: 1 mg IntraVenous Push Every 4 Hours 5. Nitroglycerin SubLingual: 0.4 mg SubLingual Every 5 Minutes 6. Ondansetron Injectable: 4 mg IntraVenous Push Every 4 Hours Conditional Medication Orders -------- 1. Perflutren Lipid Microsphere (Activated) 1.3 mL / NaCL 0.9% T.V. 10 mL Injectable: 0.5 mL IntraVenous Push Once Currently Suspended Medications -------- 1. Fludrocortisone: 0.1 mg Oral Daily Recent Lab Results: Results: CBC: 05/08/2020 05:22 \ Hgb / \ 9.5 L / WBC Plt 16.2 H 292 / Hct \ / 29.4 L \ RBC: 3.21 L MCV: 92 CMP: 05/08/2020 05:22 NA+ Cl- BUN / 140 101 50 H / -------- Glucose --- 92 K+ HCO3- Creat \ 4.0 30 1.87 H \ \ T Bili / \ 0.8 / AST x ---- x ALT 17 x ---- x 28 / Alk P \ / 85 \ Calcium : 9.0 Anion Gap : 13 Albumin : 2.8 L T Protein : 4.8 L Radiology Results: Results: Impression: 1 to 15% stenosis right internal carotid artery. 1 to 15% stenosis left internal carotid artery. Blood flow is antegrade in the right vertebral artery. Blood flow is antegrade in the left vertebral artery. If clinically indicated we could repeat the study in 1 year. Ultrasound Carotid Bilateral Duplex [May 03 2020 8:00PM] Impression: Chest 1. Small to moderate left pleural effusion and small right pleural effusion with mild right consolidative opacities. Age-indeterminate wedge compression deformity of the T10 vertebral body with less than 25% height loss. 2. Limited evaluation without the administration of intravenous contrast. Abdomen-Pelvis 1. Solitary right kidney with a nonspecific hypodensity and calcified lesion as seen on prior ultrasound, not fully evaluated on the current noncontrast exam. Contrast a cross-sectional imaging is recommended for evaluation when clinically appropriate. 2. Mild presacral and lateral body wall soft tissue edema, correlate with volume status. 3. Air in the urinary bladder, correlate with recent intervention or correlate with urinalysis if there is concern for infection. 4. Additional findings as above. CT Chest Abdomen Pelvis without Contrast [May 03 2020 10:24AM] Assessment and Plan: Code Status: Code StatusDNAR with Added Limitations Assessment: Disposition: Patient has precertification ready for acute rehab. Plan to discharge today pending specialist clearance. Impression 1: Acute kidney injury/hypercalcemia/hyp eruricemia/hypokalemia Plan for Impression 1: Endocrinology and nephrology following Replaced potassium today, likely aggravated by Lasix Lasix stopped by nephrology Overall improving renal function Continue current level of care Impression 2: Acute diastolic CHF/bilateral pleural effusion/anasarca Plan for Impression 2: Much improved Off Lasix Impression 3: Adrenal insufficiency on chronic hydrocortisone Plan for Impression 3: Resume p.o. hydrocortisone Impression 4: Metabolic encephalopathy, multifactorial related to ANGELA versus infectious etiology Plan for Impression 4: Work-up so far negative Seen by infectious disease, off antibiotics currently Appears alert and oriented today Impression 5: Pneumonia/leukocytosis Plan for Impression 5: Persistent leukocytosis Seen by infectious disease, discontinued IV antibiotics Advised observation for now Impression 6: History of DVT/PE Plan for Impression 6: IVC filter seen on imaging studies, on Coumadin INR therapeutic, check INR daily Impression 7: Acute urinary retention Plan for Impression 7: Catheter removed, urinating fine Likely secondary to acute illness Appreciate urology input Electronic Signatures: Baldo South) (Signed 08-May-2020 11:38) Authored: Service, Subjective Data, Objective Data, Assessment and Plan, Note Completion Last Updated: 08-May-2020 11:38 by Baldo South) [facility] Daily Progress Note-Infectio us Diseaseon 05-08-2020 Daily Progress Note-Infectious Disease Service: Infectious Disease History of Present Illness: History Present Illness: HPI: Possible aspiration pneumonia Recent UTI with Citrobacter No fevers chills sweats minimal cold No shortness of breath cough no diarrhea Subjective Data: LINDA PERALTA is a 75 year old Female who is Hospital Day # 7. Objective Data: Objective Information: T PRBPSpO2 [id number]/9499% Date/Time05/08 14: 14: 14: 14: 14:14 Range(35.8C - 37.6C ) (71 - 80 ) (18 - 20 ) (143 - 174 )/ (86 - 99 ) (95% - 99% ) Highest temp of 37.6 C was recorded at 05/08 7:55 Pain reported at 05/08 9:31: 0 = None ---- Intake and Output ----- Mn/Dy/Year TimeIntakeOutputNet May 08, 2020 2:00 [id number] May 08, 2020 6:00 [id number] May 07, 2020 10:00 [id number] The Intake and Output Totals for the last 24 hours are: IntakeOutputNet [id number] T PRBPSpO2 Value36.81829346/9499% Date/Time05/08 14: 14: 14: 14: 14:14 Range(35.8C - 37.6C ) (71 - 80 ) (18 - 20 ) (143 - 174 )/ (86 - 99 ) (95% - 99% ) Highest temp of 37.6 C was recorded at 05/08 7:55 Physical Exam by System: Respiratory/Thorax: Patent airways, CTAB, normal breath sounds with good chest expansion, thorax symmetric Cardiovascular: Regular, rate and rhythm, no murmurs, 2+ equal pulses of the extremities, normal S 1and S 2 Gastrointestinal: Nondistended, soft, non-tender, no rebound tenderness or guarding, no masses palpable, no organomegaly, +BS, no bruits Musculoskeletal: ROM intact, no joint swelling, normal strength Medication: Medications: CARDIOVASCULAR AGENTS: 1. Nitroglycerin SubLingual: 0.4 mg SubLingual Every 5 Minutes PRN 2. hydrALAZINE (APRESOLINE) Injectable: 5 mg IntraVenous Push Every 6 Hours PRN CENTRAL NERVOUS SYSTEM AGENTS: 1. Acetaminophen: 650 mg Oral Every 4 Hours PRN 2. Morphine Injectable: 1 mg IntraVenous Push Every 4 Hours PRN 3. Ondansetron Injectable: 4 mg IntraVenous Push Every 4 Hours PRN COAGULATION MODIFIERS: 1. Warfarin: 2.5 mg Oral Daily GASTROINTESTINAL AGENTS: 1. Magnesium Hydroxide -Al Hydrox -Simethicone Oral Liquid: 30 mL Oral Every 4 Hours PRN 2. Pantoprazole: 40 mg Oral Daily HORMONES/HORMONE MODIFIERS: 1. Hydrocortisone: 10 mg Oral Daily 2. Hydrocortisone: 20 mg Oral Daily 1800 METABOLIC AGENTS: 1. Allopurinol: 200 mg Oral Every 24 Hours 2. Atorvastatin: 10 mg Oral Daily TOPICAL AGENTS: 1. Menthol 0.44% - Zinc Oxide 20.625% Topical: 1 application(s) Topical 3 Times a Day 2. Fluticasone 50 microgram/ Nasal Inhalation: 1 spray(s) Each Nostril Daily Conditional Medication Orders -------- 1. Perflutren Lipid Microsphere (Activated) 1.3 mL / NaCL 0.9% T.V. 10 mL Injectable: 0.5 mL IntraVenous Push Once Currently Suspended Medications -------- 1. Fludrocortisone: 0.1 mg Oral Daily Recent Lab Results: Results: CBC: 05/08/2020 05:22 \ Hgb / \ 9.5 L / WBC Plt 16.2 H 292 / Hct \ / 29.4 L \ RBC: 3.21 L MCV: 92 CMP: 05/08/2020 05:22 NA+ Cl- BUN / 140 101 50 H / -------- Glucose --- 92 K+ HCO3- Creat \ 4.0 30 1.87 H \ \ T Bili / \ 0.8 / AST x ---- x ALT 17 x ---- x 28 / Alk P \ / 85 \ Calcium : 9.0 Anion Gap : 13 Albumin : 2.8 L T Protein : 4.8 L Radiology Results: Results: Impression: Mild compression deformities of several thoracic vertebral bodies without edema or retropulsion. There is no central canal stenosis in the thoracic region. Multilevel lumbar spondylosis as detailed. Extensive edema within the posterior paraspinous soft tissues particularly surrounding bilateral L4-L5 facets. Partially visualized edema within the presacral soft tissues, also noted on prior CT abdomen and pelvis. MRI T Spine without Contrast [May 04 2020 1:47PM] Impression: Mild compression deformities of several thoracic vertebral bodies without edema or retropulsion. There is no central canal stenosis in the thoracic region. Multilevel lumbar spondylosis as detailed. Extensive edema within the posterior paraspinous soft tissues particularly surrounding bilateral L4-L5 facets. Partially visualized edema within the presacral soft tissues, also noted on prior CT abdomen and pelvis. MRI L Spine without Contrast [May 04 2020 1:47PM] Impression: 1 to 15% stenosis right internal carotid artery. 1 to 15% stenosis left internal carotid artery. Blood flow is antegrade in the right vertebral artery. Blood flow is antegrade in the left vertebral artery. If clinically indicated we could repeat the study in 1 year. Ultrasound Carotid Bilateral Duplex [May 03 2020 8:00PM] Impression: Chest 1. Small to moderate left pleural effusion and small right pleural effusion with mild right consolidative opacities. Age-indeterminate wedge compression deformity of the T10 vertebral body with less than 25% height loss. 2. Limited evaluation without the administration of intravenous contrast. Abdomen-Pelvis 1. Solitary right kidney with a nonspecific hypodensity and calcified lesion as seen on prior ultrasound, not fully evaluated on the current noncontrast exam. Contrast a cross-sectional imaging is recommended for evaluation when clinically appropriate. 2. Mild presacral and lateral body wall soft tissue edema, correlate with volume status. 3. Air in the urinary bladder, correlate with recent intervention or correlate with urinalysis if there is concern for infection. 4. Additional findings as above. CT Chest Abdomen Pelvis without Contrast [May 03 2020 10:24AM] Impression: CT Abdomen and Pelvis without Contrast [May 02 2020 4:41PM] Impression: 1. Lower lung airspace disease greater on the left. Xray Chest 2 View PA + Lateral [May 02 2020 1:50PM] Conclusion: CONCLUSIONS: 1. The left ventricular systolic function is normal with a 60-65% estimated ejection fraction. 2. Spectral Doppler shows an impaired relaxation pattern of left ventricular diastolic filling. 3. Mild aortic valve stenosis. 4. There is moderate aortic valve cusp calcification. 5. Mild to moderately elevated pulmonary artery pressure. QUANTITATIVE DATA SUMMARY: 2D MEASUREMENTS: Normal Ranges: Ao Root d: 2.70 cm (2.0-3.7cm) LAs: 3.20 cm (2.7-4.0cm) IVSd: 1.44 cm (0.6-1.1cm) LVPWd: 1.34 cm (0.6-1.1cm) LVIDd: 2.51 cm (3.9-5.9cm) LVIDs: 1.97 cm LV Mass Index: 61.5 g/m2 LV % FS 21.5 % LA VOLUME: Normal Ranges: LA Volume Index: 32.1 ml/m2 RA VOLUME BY A/L METHOD: Normal Ranges: RA Vol A4C: 45.7 ml (8.3-19.5ml) RA Vol Index A4C: 25.4 ml/m2 RA Area A4C: 16.4 cm2 RA Major [place] A4C: 5.0 cm M-MODE MEASUREMENTS: Normal Ranges: Ao Root: 3.00 cm (2.0-3.7cm) AoV Exc: 1.20 cm (1.5-2.5cm) LAs: 3.00 cm (2.7-4.0cm) AORTA MEASUREMENTS: Normal Ranges: AoV Exc: 1.20 cm (1.5-2.5cm) LV SYSTOLIC FUNCTION BY 2D PLANIMETRY (MOD): Normal Ranges: EF-A4C View: 56.0 % (>55%) EF-A2C View: 57.4 % EF-Biplane: 55.9 % LV DIASTOLIC FUNCTION: Normal Ranges: MV Peak E: 0.65 m/s (0.7-1.2 m/s) MV Peak A: 1.32 m/s (0.42-0.7 m/s) E/A Ratio: 0.49 (1.0-2.2) MV e' 0.07 m/s (>8.0) MV lateral e' 0.06 m/s MV medial e' 0.07 m/s E/e' Ratio: 9.29 (<8.0) a' 0.12 m/s MITRAL VALVE: Normal Ranges: MV Vmax: 0.58 m/s (<1.3m/s) MV peak P.3 mmHg (<5mmHg) MV DT: 232 msec (150-240msec) AORTIC VALVE: Normal Ranges: AoV Mean P.0 mmHg (1.7-11.5mmHg) LVOT Max Tegan: 1.09 m/s (<1.1m/s) AoV VTI: 34.40 cm (18-25cm) LVOT VTI: 22.80 cm LVOT Diameter: 1.70 cm (1.8-2.4cm) AoV Area, VTI: 1.50 cm2 (2.5-5.5cm2) AoV Dimensionless Index: 0.66 RIGHT VENTRICLE: RV 1 3.7 cm RV 2 2.8 cm RV 3 6.3 cm TAPSE: 18.7 mm RV s' 0.24 m/s TRICUSPID VALVE/RVSP: Normal Ranges: Peak TR Velocity: 3.09 m/s RV Syst Pressure: 41.2 mmHg (< 30mmHg) IVC Diam: 1.40 cm PULMONIC VALVE: Normal Ranges: PV Accel Time: 95 msec (>120ms) PV Max Tegan: 1.2 m/s (0.6-0.9m/s) PV Max P.2 mmHg [id number] Tremayne Mcleod MD Electronically signed on 05/02/2020 at 1:08:29 PM Final Echocardiogram [May 02 2020 1:08PM] Impression: No evidence of hydronephrosis. Nonobstructing calculus at the upper pole. Complex cyst with calcification given hypodensity at the level of the renal hilum for which nonemergent CT would be recommended for further evaluation. Ultrasound Renal Bilateral [May 02 2020 12:57PM] Assessment and Plan: Code Status: Code StatusDNAR with Added Limitations Assessment: Aspiration pneumonia UTI Electronic Signatures: Alberto Allred) (Signed 08-May-2020 14:34) Authored: Service, History of Present Illness, Subjective Data, Objective Data, Assessment and Plan, Note Completion Last Updated: 08-May-2020 14:34 by Alberto Allred) Normal [facility] Daily Progress Note-Nephrolo gray 05-08-2020 Daily Progress Note-Nephrology Service: Nephrology Subjective Data: LINDA PERALTA is a 75 year old Female who is Hospital Day # 7. renal function improving, pt feeling better. Objective Data: Objective Information: T PRBPSpO2 [id number]/9699% Date/Time05/08 7: 7: 7: 7: 7:55 Range(35.8C - 37.6C ) (71 - 82 ) (18 - 20 ) (131 - 174 )/ (86 - 99 ) (95% - 99% ) Highest temp of 37.6 C was recorded at 05/08 7:55 Pain reported at 05/08 9:31: 0 = None ---- Intake and Output ----- Mn/Dy/Year TimeIntakeOutputNet May 08, 2020 6:00 [id number] May 07, 2020 10:00 [id number] May 07, 2020 2:00 [id number] The Intake and Output Totals for the last 24 hours are: IntakeOutputNet [id number] Constitutional: Alert, in no acute distress HEENT: NC/AT, anicteric Neck: supple, no mass Lungs: CTAB, non-labored respirations Heart: RRR, no murmur Abdomen: soft, NT, ND Ext: no cyanosis, no peripheral edema Neuro: Alert, follows commands Medication: Medications: Continuous Medications -------- No continuous medications are active Scheduled Medications -------- 1. Allopurinol: 200 mg Oral Every 24 Hours 2. Atorvastatin: 10 mg Oral Daily 3. Fluticasone 50 microgram/ Nasal Inhalation: 1 spray(s) Each Nostril Daily 4. Hydrocortisone: 10 mg Oral Daily 5. Hydrocortisone: 20 mg Oral Daily 1800 6. Menthol 0.44% - Zinc Oxide 20.625% Topical: 1 application(s) Topical 3 Times a Day 7. Pantoprazole: 40 mg Oral Daily 8. Warfarin: 2.5 mg Oral Daily PRN Medications -------- 1. Acetaminophen: 650 mg Oral Every 4 Hours 2. hydrALAZINE (APRESOLINE) Injectable: 5 mg IntraVenous Push Every 6 Hours 3. Magnesium Hydroxide -Al Hydrox -Simethicone Oral Liquid: 30 mL Oral Every 4 Hours 4. Morphine Injectable: 1 mg IntraVenous Push Every 4 Hours 5. Nitroglycerin SubLingual: 0.4 mg SubLingual Every 5 Minutes 6. Ondansetron Injectable: 4 mg IntraVenous Push Every 4 Hours Conditional Medication Orders -------- 1. Perflutren Lipid Microsphere (Activated) 1.3 mL / NaCL 0.9% T.V. 10 mL Injectable: 0.5 mL IntraVenous Push Once Currently Suspended Medications -------- 1. Fludrocortisone: 0.1 mg Oral Daily Recent Lab Results: Results: CBC: 05/08/2020 05:22 \ Hgb / \ 9.5 L / WBC Plt 16.2 H 292 / Hct \ / 29.4 L \ RBC: 3.21 L MCV: 92 CMP: 05/08/2020 05:22 NA+ Cl- BUN / 140 101 50 H / -------- Glucose --- 92 K+ HCO3- Creat \ 4.0 30 1.87 H \ \ T Bili / \ 0.8 / AST x ---- x ALT 17 x ---- x 28 / Alk P \ / 85 \ Calcium : 9.0 Anion Gap : 13 Albumin : 2.8 L T Protein : 4.8 L Assessment and Plan: Code Status: Code StatusDNAR with Added Limitations Assessment: LINDA PERALTA is a 75 year old Female w/ history s/f HTN, CAD, moris's disease, solitary kidney c/b RCC s/p partial nephrectomy, DVT/PE who was initially at [facility] for [facility], hypercalcemia and hypotension now transferred here. 1. ANGELA on CKD: previously hypotensive at [facility], now hypertensive, also CRS as pt is volume overloaded on exam vs. crystal induced (hypercalcemic, hyperphosphatemic, hyperuricemic), not on any nephrotoxic medications, not rhabdomyolysis (nml CK even though has high phos and uric acid), does have risk factors for CKD due to donating LT kidney hence has RT solitary kidney c/b RCC s/p RT partial nephrectomy, slowly improving 2. Hypercalcemia/hyperphosp hatemia: PTHrp related, had low nml PTH (appropriate), Vit D 25 and 1,25, nml SPEP as well, improved w/ medical management, was started on binders for the phos, now resolved so taken off binders 3. Hyperuricemia: has nml CK, unlikely related to TLS (has high phos but would also expect hyperkalemia though this could be affected w/ pt on florinef and likely hypocalcemia), not on thiazides, can be seen in sarcoidosis (however nml Vit D-1,25 less likely related to this), hyperparathyroidism, hypothyroidism 4. HTN: could be due to medications (on florinef, hydrocortisone) 5. 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 Urology progress note for 05/08/20, Reviewed with nursing Quan catheter removed yesterday and so far patient has been voiding well spontaneously on her own Okay for discharge later today as planned Patient is from out of the local area and we recommend that she follow up urologically with a local urologist near her home as needed Okay for discharge Thank you Additional medical and historical objective data reviewed and listed below, blood work and imaging reviewed. Objective Data: Objective Information: T PRBPSpO2 [id number]/9499% Date/Time05/08 14: 14: 14: 14: 14:14 Range(35.8C - 37.6C ) (71 - 80 ) (18 - 20 ) (143 - 174 )/ (86 - 99 ) (95% - 99% ) Highest temp of 37.6 C was recorded at 05/08 7:55 Pain reported at 05/08 9:31: 0 = None ---- Intake and Output ----- Mn/Dy/Year TimeIntakeOutadvanced care hospital of [facility]xicoNet May 08, 2020 2:00 [id number] May 08, 2020 6:00 [id number] May 07, 2020 10:00 [id number] The Intake and Output Totals for the last 24 hours are: IntakeOutputNet [id number] Recent Lab Results: Results: CBC: 05/08/2020 05:22 \ Hgb / \ 9.5 L / WBC Plt 16.2 H 292 / Hct \ / 29.4 L \ RBC: 3.21 L MCV: 92 CMP: 05/08/2020 05:22 NA+ Cl- BUN / 140 101 50 H / -------- Glucose --- 92 K+ HCO3- Creat \ 4.0 30 1.87 H \ \ T Bili / \ 0.8 / AST x ---- x ALT 17 x ---- x 28 / Alk P \ / 85 \ Calcium : 9.0 Anion Gap : 13 Albumin : 2.8 L T Protein : 4.8 L Assessment and Plan: Code Status: Code StatusDNAR with Added Limitations Electronic Signatures: Alvin Sawyer) (Signed 08-May-2020 16:22) Authored: Service, Subjective Data, Objective Data, Assessment and Plan, Note Completion Last Updated: 08-May-2020 16:22 by Alvin Sawyer) [facility] Order Reconciliationon 05-08 Order Reconciliation Page 1 Discharge Reconciliation Document Reconciliation Type: Discharge requested on behalf of Baldo South (Physician) done by Baldo South) Discharge - Reconciliation: 08-May-2020 15:19 by: Baldo South) Discharge - Reset to Incomplete: 08-May-2020 15:19 by: Baldo South) Discharge - Reconciliation: 08-May-2020 15:19 by: Baldo South) Discharge - Reset to Incomplete: 08-May-2020 15:59 by: Baldo South) Discharge - Reconciliation: 08-May-2020 15:59 by: Baldo South) Home Medications EnteredHOME MEDICATIONS AT DISCHARGE DateReconciliation Comment/ Additional Information acetaminophen 1000 milligram(s) orally every 6 hours, As Needed 23-Mar-2020 00:00 acetaminophen 1000 milligram(s) orally every 6 hours, As Needed 23-Mar-2020 00:00 acetaminophen is continued as acetaminophen atorvastatin 10 mg oral tablet 1 tab(s) orally once a day (at bedtime) 23-Mar-2020 00:00 atorvastatin 10 mg oral tablet 1 tab(s) orally once a day (at bedtime) 23-Mar-2020 00:00 atorvastatin 10 mg oral tablet is continued as atorvastatin 10 mg oral tablet Calmoseptine 0.44%-20.6% topical ointment Apply topically to affected area 2 times a day, As Needed 23-Mar-2020 00:00 Calmoseptine 0.44%-20.6% topical ointment Apply topically to affected area 2 times a day, As Needed 23-Mar-2020 00:00 Calmoseptine 0.44%-20.6% topical ointment is continued as Calmoseptine 0.44%-20.6% topical ointment cholecalciferol 1000 intl units (25 mcg) oral tablet 1 tab(s) orally once a day 21-Feb-2020 00:00 Discontinued; Discontinue from ORM cholecalciferol 1000 intl units (25 mcg) oral tablet is not required cyanocobalamin 1000 mcg oral tablet 1 tab(s) orally once a day 21-Feb-2020 00:00 cyanocobalamin 1000 mcg oral tablet 1 tab(s) orally once a day 21-Feb-2020 00:00 cyanocobalamin 1000 mcg oral tablet is continued as cyanocobalamin 1000 mcg oral tablet dupilumab 300 milligram(s) subcutaneous every 2 weeks 23-Mar-2020 00:00 dupilumab 300 milligram(s) subcutaneous every 2 weeks 23-Mar-2020 00:00 dupilumab is continued as dupilumab Florinef Acetate 0.1 mg oral tablet 1 tab(s) orally once a day 20-Apr-2020 00:00 Discontinued; Discontinue from ORM Florinef Acetate 0.1 mg oral tablet is not required fluticasone nasal 1 spray(s) nasal once a day (at bedtime) 23-Mar-2020 00:00 fluticasone nasal 1 spray(s) nasal once a day (at bedtime) 23-Mar-2020 00:00 fluticasone nasal is continued as fluticasone nasal hydrocortisone 10 mg oral tablet 1 tab(s) orally once a day 23-Mar-2020 00:00 hydrocortisone 10 mg oral tablet 1 tab(s) orally once a day at night 23-Mar-2020 00:00 Discontinued; Copy/Discontinue hydrocortisone 10 mg oral tablet is continued and modified hydrocortisone 20 mg oral tablet 1 tab(s) orally once a day 23-Mar-2020 00:00 hydrocortisone 20 mg oral tablet 1 tab(s) orally once a day in the morning 23-Mar-2020 00:00 Discontinued; Copy/Discontinue hydrocortisone 20 mg oral tablet is continued and modified lactobacillus acidophilus-lactobacillu s casei oral delayed release capsule 1 cap(s) orally once a day 20-Apr-2020 00:00 lactobacillus acidophilus-lactobacillu s casei oral delayed release capsule 1 cap(s) orally once a day 20-Apr-2020 00:00 lactobacillus acidophilus-lactobacillu s casei oral delayed release capsule is continued as lactobacillus acidophilus-lactobacillu s casei oral delayed release capsule nitroglycerin 0.4 mg sublingual tablet 1 tab(s) sublingual every 5 minutes, As Needed 21-May-2018 00:00 nitroglycerin 0.4 mg sublingual tablet 1 tab(s) sublingual every 5 minutes, As Needed 21-May-2018 00:00 nitroglycerin 0.4 mg sublingual tablet is continued as nitroglycerin 0.4 mg sublingual tablet warfarin 2.5 mg oral tablet 1 tab(s) orally once a day 23-Mar-2020 00:00 warfarin 2.5 mg oral tablet 1 tab(s) orally once a day 23-Mar-2020 00:00 warfarin 2.5 mg oral tablet is continued as warfarin 2.5 mg oral tablet Current OrdersDateHOME MEDICATIONS AT DISCHARGE DateReconciliation Comment/ Additional Information Acetaminophen Tablet (TYLENOL)DOSE = 650 mg Oral Every 4 Hours, PRN Temp Greater Than or Equal to 38.0 C 02-May-2020 02:15 Acetaminophen is not required Allopurinol Tablet (ZYLOPRIM)DOSE = 200 mg Oral Every 24 Hours 02-May-2020 12:26 allopurinol 100 mg oral tablet 2 tab(s) orally once a day 08-May-2020 15:13 Prescription is created for allopurinol 100 mg oral tablet amLODIPine (NORVASC) TabletDOSE = 5 mg Oral Daily 08-May-2020 15:11 amLODIPine 5 mg oral tablet 1 tab(s) orally once a day 08-May-2020 15:14 Prescription is created for amLODIPine 5 mg oral tablet Atorvastatin Tablet (LIPITOR)DOSE = 10 mg Oral Daily 02-May-2020 02:08 Atorvastatin is not required Fludrocortisone Tablet (FLORINEF)DOSE = 0.1 mg Oral Daily 02-May-2020 02:08 Fludrocortisone is not required Fluticasone 50 microgram/ Nasal Inhalation (FLONASE)DOSE = 1 spray(s) Each Nostril DailyNotes from Pharmacy: 02-May-2020 02:08 Fluticasone 50 microgram/ Nasal Inhalation is not required hydrALAZINE (APRESOLINE) Injectable DOSE = 5 mg IntraVenous Push Every 6 Hours, PRN Systolic blood pressure above 175 02-May-2020 08:25 hydrALAZINE (APRESOLINE) Injectable is not required Hydrocortisone Tablet (CORTEF)DOSE = 10 mg Oral Daily 02-May-2020 02:08 Hydrocortisone is not required Hydrocortisone Tablet (CORTEF)DOSE = 20 mg Oral Daily 1800 02-May-2020 02:08 Hydrocortisone is not required Magnesium Hydroxide -Al Hydrox -Simethicone Oral Liquid (MAALOX)DOSE = 30 mL Oral Every 4 Hours, PRN Indigestion/Heartburn 02-May-2020 22:55 Magnesium Hydroxide -Al Hydrox -Simethicone Oral Liquid is not required Menthol 0.44% - Zinc Oxide 20.625% Topical Ointment (CALMOSEPTINE)DOSE = 1 application(s) Topical 3 Times a DayApply to Sacrum 02-May-2020 02:08 Menthol 0.44% - Zinc Oxide 20.625% Topical is not required Morphine Injectable DOSE = 1 mg IntraVenous Push Every 4 Hours, PRN Pain - Mod (4-6) 04-May-2020 00:43 Morphine Injectable is not required Nitroglycerin SubLingual Tablet (NITROSTAT)DOSE = 0.4 mg SubLingual Every 5 Minutes, PRN Angina 02-May-2020 02:08 Nitroglycerin SubLingual is not required Ondansetron Injectable (ZOFRAN)DOSE = 4 mg IntraVenous Push Every 4 Hours, PRN Nausea and/or Vomiting 02-May-2020 02:15 Ondansetron Injectable is not required Pantoprazole Enteric Coated Tablet (PROTONIX)DOSE = 40 mg Oral Daily 08-May-2020 07:56 Pantoprazole is not required Perflutren Lipid Microsphere (Activated) 1.3 mL / NaCL 0.9% T.V. 10 mL Injectable DOSE = 0.5 mL IntraVenous Push OnceCa.241390 mL/Kg/DOSE x 74.5 Kg = 0.5 mL/Dose (Daily Total is 0.5 mL)Clinician Notes: 1. Dilute 1.3 mL of activated DEFINITY 02-May-2020 09:02 Perflutren Lipid Microsphere (Activated) 1.3 mL / NaCL 0.9% T.V. 10 mL Injectable is not required Warfarin Tablet (COUMADIN)DOSE = 2.5 mg Oral DailyClinician Notes: Give dose at 1800, unless otherwise specified by physician.Enteral feedings are held 1 hour pre and post doseNotes from Pharmacy: Reproductive Risk- Single Nitrile GloveRCRA 02-May-2020 08:29 Warfarin is not required Home Medications Added During Discharge Reconciliation Discharge Discharge Diagnosis< R41.82 Change in mental status;E87.8 Electrolyte imbalance Discharge ProviderBrannon James Discharge Disposition : Rehab Facility or Unit Condition at Discharge: Satisfactory Discharge Communication Instructions for Nursing Only: Remove IV prior to discharge from hospital. Do not remove any midline, if present, without an order from the provider. Discharge Instructions - PHR After your discharge from the hospital, two Summary of Care Documents will be available online in your Personal Health Record (PHR). 1.Consolidated-Clinical Document Architecture (C-CDA) Patient Discharge Summary This document is a summary of your hospital stay to be kept for your reference.2.C-CDA Visit Summary This document is a summary of your hospital stay to be shared with your follow-up providers (doctor, road roller operator, physical therapist, etc.). Guidelines for a Healthy Lifestyle All Active Home Medications at time of Discharge Reconciliation: 08-May-2020 15:59 acetaminophen 1000 milligram(s) orally every 6 hours, As Needed allopurinol 100 mg oral tablet 2 tab(s) orally once a day amLODIPine 5 mg oral tablet 1 tab(s) orally once a day atorvastatin 10 mg oral tablet 1 tab(s) orally once a day (at bedtime) Calmoseptine 0.44%-20.6% topical ointment Apply topically to affected area 2 times a day, As Needed cyanocobalamin 1000 mcg oral tablet 1 tab(s) orally once a day Discharge Discharge Diagnosis< R41.82 Change in mental status;E87.8 Electrolyte imbalance Discharge ProviderBrannon James Discharge Disposition : Rehab Facility or Unit Condition at Discharge: Satisfactory Discharge Communication Instructions for Nursing Only: Remove IV prior to discharge from hospital. Do not remove any midline, if present, without an order from the provider. Discharge Instructions - PHR After your discharge from the hospital, two Summary of Care Documents will be available online in your Personal Health Record (PHR). 1.Consolidated-Clinical Document Architecture (C-CDA) Patient Discharge Summary This document is a summary of your hospital stay to be kept for your reference.2.C-CDA Visit Summary This document is a summary of your hospital stay to be shared with your follow-up providers (doctor, road roller operator, physical therapist, etc.). dupilumab 300 milligram(s) subcutaneous every 2 weeks fluticasone nasal 1 spray(s) nasal once a day (at bedtime) Guidelines for a Healthy Lifestyle hydrocortisone 10 mg oral tablet 1 tab(s) orally once a day at night hydrocortisone 20 mg oral tablet 1 tab(s) orally once a day in the morning lactobacillus acidophilus-lactobacillu s casei oral delayed release capsule 1 cap(s) orally once a day nitroglycerin 0.4 mg sublingual tablet 1 tab(s) sublingual every 5 minutes, As Needed warfarin 2.5 mg oral tablet 1 tab(s) orally once a day Normal [facility] CBCon 05-07-2020 Erythrocyte distribution width (RBC) [Ratio] 15.5 % High 11.5 - 14.5 [facility] Comment on above: Performed By: #### C BC ####[address] [place], [place] [id number] Hematocrit (Bld) [Volume fraction] 30.4 % Low 36.0 - 46.0 [facility] Comment on above: Performed By: #### C BC ####[facility] [place], [place] [id number] Hemoglobin (Bld) [Mass/Vol] 9.8 g/dL Low 12.0 - 16.0 [facility] Comment on above: Performed By: #### C BC ####[address] [place], [place] [id number] MCHC (RBC) [Mass/Vol] 32.2 g/dL Normal 32.0 - 36.0 [facility] Comment on above: Performed By: #### C BC ####[facility] [place], [place] [id number] MCV (RBC) [Entitic vol] 92 fL Normal 80 - 100 [facility] Comment on above: Performed By: #### C BC ####[address] [id number] Platelets (Bld) [#/Vol] 279 10*3/uL Normal 150 - 450 [facility] Comment on above: Performed By: #### C BC ####[address] [id number] RBC (Bld) [#/Vol] 3.31 x10E12/L Low 4.00 - 5.20 [facility] Comment on above: Performed By: #### C BC ####[address] [id number] WBC (Bld) [#/Vol] 18.5 10*3/uL High 4.4 - 11.3 [facility] Comment on above: Performed By: #### C BC ####[address] [id number] COMPREHENSIVE PANELon 2020 Albumin [Mass/Vol] 2.9 g/dL Low 3.4 - 5.0 [facility] Comment on above: Performed By: #### C MP #### [address] [id number] ALP [Catalytic activity/Vol] 80 U/L Normal 33 - 136 [facility] Comment on above: Performed By: #### C MP #### [address] [id number] ALT [Catalytic activity/Vol] 31 U/L Normal 7 - 45 [facility] Comment on above: Result Comment: Liz ents treated with Sulfasalazine may generate falsely decreased results for ALT. Performed By: #### C MP #### [address] [id number] Anion gap [Moles/Vol] 14 mmol/L Normal 10 - 20 [facility] Comment on above: Performed By: #### C MP #### [address] [id number] AST [Catalytic activity/Vol] 20 U/L Normal 9 - 39 [facility] Comment on above: Performed By: #### C MP #### [address] [id number] Bilirubin [Mass/Vol] 0.9 mg/dL Normal 0.0 - 1.2 [facility] Comment on above: Performed By: #### C MP #### [address] [phone] Calcium [Mass/Vol] 9.0 mg/dL Normal 8.6 - 10.3 [facility] Comment on above: Performed By: #### C MP #### [address] [id number] Chloride [Moles/Vol] 99 mmol/L Normal 98 - 107 [facility] Comment on above: Performed By: #### C MP #### [address] [id number] Creatinine [Mass/Vol] 1.95 mg/dL High 0.50 - 1.05 [facility] Comment on above: Performed By: #### C MP #### [address] [id number] GFR- AM. 30 mL/min/1.73m2 Abnormal >60 [facility] Comment on above: Result Comment: CALC ULATIONS OF ESTIMATED GFR ARE PERFORMED USING THE MDRD STUDY EQUATION FOR THE IDMS-TRACEABLE CREATININE METHODS. CLIN CHEM 2007;53:766-72 Performed By: #### C MP #### [address] [id number] GFR-NON AM. 25 mL/min/1.73m2 Abnormal >60 [facility] Comment on above: Performed By: #### C MP #### [address] [id number] Glucose [Mass/Vol] 86 mg/dL Normal 74 - 99 [facility] Comment on above: Performed By: #### C MP #### [address] [id number] HCO3 (Bld) [Moles/Vol] 27 mmol/L Normal 21 - 32 [facility] Comment on above: Performed By: #### C MP #### [address] [id number] Potassium [Moles/Vol] 4.0 mmol/L Normal 3.5 - 5.3 [facility] Comment on above: Performed By: #### C MP #### [address] [id number] Protein [Mass/Vol] 5.0 g/dL Low 6.4 - 8.2 [facility] Comment on above: Performed By: #### C MP #### [address] [id number] Sodium [Moles/Vol] 136 mmol/L Normal 136 - 145 [facility] Comment on above: Performed By: #### C MP #### [address] [id number] Urea nitrogen [Mass/Vol] 55 mg/dL High 6 - 23 [facility] Comment on above: Performed By: #### C MP #### [address] [id number] Daily Progress Note-General Internal Medicineon 05-07-2020 Daily Progress Note-General Internal Medicine Service: General Internal Medicine Subjective Data: LINDA PERALTA is a 75 year old Female who is Hospital Day # 6. Seen and examined, denies any fever, chills, chest pain, shortness of breath. Rest of the ROS is negative. Objective Data: Objective Information: T PRBPSpO2 [id number]/8697% Date/Time05/07 14: 14: 14: 14:033 14:03 Range(36C - 36.8C ) (77 - 85 ) (18 - 20 ) (125 - 170 )/ (80 - 98 ) (94% - 97% ) Pain reported at 05/07 12:04: 0 = None ---- Intake and Output ----- [facility] 07, 2020 2:00 [id number] May 06, 2020 10:00 [id number] The Intake and Output Totals for the last 24 hours are: IntakeOutputNet [id number] Physical Exam by System: Constitutional: Well developed, awake/alert/oriented x3, no distress, alert and cooperative Respiratory/Thorax: Patent airways, CTAB, normal breath sounds with good chest expansion, thorax symmetric Cardiovascular: normal S 1and S 2 Gastrointestinal: Positive bowel sounds soft, suprapubic tenderness Musculoskeletal: ROM intact, no joint swelling, normal strength Extremities: Trace bipedal edema Neurological: alert and oriented x3, intact senses, motor, normal strength Psychological: Appropriate mood and behavior Medication: Medications: Continuous Medications -------- No continuous medications are active Scheduled Medications -------- 1. Allopurinol: 200 mg Oral Every 24 Hours 2. Atorvastatin: 10 mg Oral Daily 3. Fluticasone 50 microgram/ Nasal Inhalation: 1 spray(s) Each Nostril Daily 4. Hydrocortisone: 10 mg Oral Daily 5. Hydrocortisone: 20 mg Oral Daily 1800 6. Menthol 0.44% - Zinc Oxide 20.625% Topical: 1 application(s) Topical 3 Times a Day 7. Pantoprazole Injectable: 40 mg IntraVenous Push Every 24 Hours 8. Warfarin: 2.5 mg Oral Daily PRN Medications -------- 1. Acetaminophen: 650 mg Oral Every 4 Hours 2. hydrALAZINE (APRESOLINE) Injectable: 5 mg IntraVenous Push Every 6 Hours 3. Magnesium Hydroxide -Al Hydrox -Simethicone Oral Liquid: 30 mL Oral Every 4 Hours 4. Morphine Injectable: 1 mg IntraVenous Push Every 4 Hours 5. Nitroglycerin SubLingual: 0.4 mg SubLingual Every 5 Minutes 6. Ondansetron Injectable: 4 mg IntraVenous Push Every 4 Hours Conditional Medication Orders -------- 1. Perflutren Lipid Microsphere (Activated) 1.3 mL / NaCL 0.9% T.V. 10 mL Injectable: 0.5 mL IntraVenous Push Once Currently Suspended Medications -------- 1. Fludrocortisone: 0.1 mg Oral Daily Recent Lab Results: Results: CBC: 05/07/2020 05:42 \ Hgb / \ 9.8 L / WBC Plt 18.5 H 279 / Hct \ / 30.4 L \ RBC: 3.31 L MCV: 92 BMP: 05/06/2020 16:58 NA+ Cl- BUN / 138 97 L 57 H / -------- Glucose --- 124 H K+ HCO3- Creat \ 3.9 31 2.05 H \ Calcium : 9.0 Anion Gap : 14 CMP: 05/07/2020 05:42 NA+ Cl- BUN / 136 99 55 H / -------- Glucose --- 86 K+ HCO3- Creat \ 4.0 27 1.95 H \ \ T Bili / \ 0.9 / AST x ---- x ALT 20 x ---- x 31 / Alk P \ / 80 \ Calcium : 9.0 Anion Gap : 14 Albumin : 2.9 L T Protein : 5.0 L Radiology Results: Results: Impression: 1 to 15% stenosis right internal carotid artery. 1 to 15% stenosis left internal carotid artery. Blood flow is antegrade in the right vertebral artery. Blood flow is antegrade in the left vertebral artery. If clinically indicated we could repeat the study in 1 year. Ultrasound Carotid Bilateral Duplex [May 03 2020 8:00PM] Impression: Chest 1. Small to moderate left pleural effusion and small right pleural effusion with mild right consolidative opacities. Age-indeterminate wedge compression deformity of the T10 vertebral body with less than 25% height loss. 2. Limited evaluation without the administration of intravenous contrast. Abdomen-Pelvis 1. Solitary right kidney with a nonspecific hypodensity and calcified lesion as seen on prior ultrasound, not fully evaluated on the current noncontrast exam. Contrast a cross-sectional imaging is recommended for evaluation when clinically appropriate. 2. Mild presacral and lateral body wall soft tissue edema, correlate with volume status. 3. Air in the urinary bladder, correlate with recent intervention or correlate with urinalysis if there is concern for infection. 4. Additional findings as above. CT Chest Abdomen Pelvis without Contrast [May 03 2020 10:24AM] Assessment and Plan: Code Status: Code StatusDNAR with Added Limitations Assessment: Disposition: Patient has precertification ready for acute rehab. When cleared by specialist service, patient can be discharged for continuity of care. Impression 1: Acute kidney injury/hypercalcemia/hyp eruricemia/hypokalemia Plan for Impression 1: Endocrinology and nephrology following Replaced potassium today, likely aggravated by Lasix Lasix stopped by nephrology Overall improving renal function Continue current level of care Impression 2: Acute diastolic CHF/bilateral pleural effusion/anasarca Plan for Impression 2: Much improved Off Lasix Impression 3: Adrenal insufficiency on chronic hydrocortisone Plan for Impression 3: On IV hydrocortisone, will resume p.o. on discharge Impression 4: Metabolic encephalopathy, multifactorial related to ANGELA versus infectious etiology Plan for Impression 4: Work-up so far negative Seen by infectious disease, off antibiotics currently Appears alert and oriented today Impression 5: Pneumonia/leukocytosis Plan for Impression 5: Persistent leukocytosis Seen by infectious disease, discontinued IV antibiotics Advised observation for now Impression 6: History of DVT/PE Plan for Impression 6: IVC filter seen on imaging studies, on Coumadin INR therapeutic, check INR daily Impression 7: Acute urinary retention/back pain/bilateral leg weakness Plan for Impression 7: MRI of the lumbar and thoracic region did not show any acute cord compression There is evidence of, nonspecific, likely related to fluid overload state Urology following Orthopedics following, at this point no acute intervention for spinal edema Electronic Signatures: Baldo South) (Signed 07-May-2020 14:49) Authored: Service, Subjective Data, Objective Data, Assessment and Plan, Note Completion Last Updated: 07-May-2020 14:49 by Baldo South) [facility] Daily Progress Note-Infectio us Diseaseon 05-07-2020 Daily Progress Note-Infectious Disease Service: Infectious Disease History of Present Illness: History Present Illness: HPI: Possible aspiration pneumonia Recent UTI with Citrobacter No fevers chills sweats minimal cold Subjective Data: LINDA PERALTA is a 75 year old Female who is Hospital Day # 6. Objective Data: Objective Information: T PRBPSpO2 [id number]/9897% Date/Time05/07 8: 8: 8: 8: 8:01 Range(36C - 36.8C ) (77 - 85 ) (18 - 20 ) (125 - 170 )/ (80 - 98 ) (94% - 98% ) Pain reported at 05/07 12:04: 0 = None ---- Intake and Output ----- Mn/Dy/Year TimeIntakeOutputNet May 06, 2020 10:00 [id number] May 06, 2020 2:00 [id number] The Intake and Output Totals for the last 24 hours are: IntakeOutputNet [id number] T PRBPSpO2 [id number]/9897% Date/Time05/07 8: 8: 8: 8: 8:01 Range(36C - 36.8C ) (77 - 85 ) (18 - 20 ) (125 - 170 )/ (80 - 98 ) (94% - 98% ) Physical Exam by System: Constitutional: Well developed, awake/alert/oriented x3, no distress, alert and cooperative Respiratory/Thorax: Patent airways, CTAB, normal breath sounds with good chest expansion, thorax symmetric Cardiovascular: Regular, rate and rhythm, no murmurs, 2+ equal pulses of the extremities, normal S 1and S 2 Gastrointestinal: Nondistended, soft, non-tender, no rebound tenderness or guarding, no masses palpable, no organomegaly, +BS, no bruits Musculoskeletal: ROM intact, no joint swelling, normal strength Medication: Medications: CARDIOVASCULAR AGENTS: 1. Nitroglycerin SubLingual: 0.4 mg SubLingual Every 5 Minutes PRN 2. hydrALAZINE (APRESOLINE) Injectable: 5 mg IntraVenous Push Every 6 Hours PRN CENTRAL NERVOUS SYSTEM AGENTS: 1. Acetaminophen: 650 mg Oral Every 4 Hours PRN 2. Morphine Injectable: 1 mg IntraVenous Push Every 4 Hours PRN 3. Ondansetron Injectable: 4 mg IntraVenous Push Every 4 Hours PRN COAGULATION MODIFIERS: 1. Warfarin: 2.5 mg Oral Daily GASTROINTESTINAL AGENTS: 1. Magnesium Hydroxide -Al Hydrox -Simethicone Oral Liquid: 30 mL Oral Every 4 Hours PRN 2. Pantoprazole Injectable: 40 mg IntraVenous Push Every 24 Hours HORMONES/HORMONE MODIFIERS: 1. Hydrocortisone Na Succinate Injectable: 25 mg IntraVenous Push Every 12 Hours METABOLIC AGENTS: 1. Allopurinol: 200 mg Oral Every 24 Hours 2. Atorvastatin: 10 mg Oral Daily TOPICAL AGENTS: 1. Menthol 0.44% - Zinc Oxide 20.625% Topical: 1 application(s) Topical 3 Times a Day 2. Fluticasone 50 microgram/ Nasal Inhalation: 1 spray(s) Each Nostril Daily Conditional Medication Orders -------- 1. Perflutren Lipid Microsphere (Activated) 1.3 mL / NaCL 0.9% T.V. 10 mL Injectable: 0.5 mL IntraVenous Push Once Currently Suspended Medications -------- 1. Fludrocortisone: 0.1 mg Oral Daily 2. Hydrocortisone: 10 mg Oral Daily 3. Hydrocortisone: 20 mg Oral Daily 1800 Recent Lab Results: Results: I have reviewed these laboratory results: Comprehensive Metabolic Panel 07-May-2020 05:42:00 ResultValue Glucose, Serum 86 NA 136 K 4.0 CL 99 Bicarbonate, Serum 27 Anion Gap, Serum 14 BUN 55 H CREAT 1.95 H GFR-Non 25 A GFR- 30 A Calcium, Serum 9.0 ALB 2.9 L ALKP 80 T Pro 5.0 L T Bili 0.9 Alanine Aminotransferase, Serum 31 Aspartate Transaminase, Serum 20 Complete Blood Count 07-May-2020 05:42:00 ResultValue White Blood Cell Count 18.5 H Red Blood Cell Count 3.31 L HGB 9.8 L HCT 30.4 L MCV 92 MCHC 32.2 PLT 279 RDW-CV 15.5 H Phosphorus, Serum 07-May-2020 05:42:00 ResultValue Phosphorus, Serum 3.3 Uric Acid, Serum 07-May-2020 05:42:00 ResultValue Uric Acid, Serum 8.1 H Basic Metabolic Panel 06-May-2020 16:58:00 ResultValue Glucose, Serum 124 H NA 138 K 3.9 CL 97 L Bicarbonate, Serum 31 Anion Gap, Serum 14 BUN 57 H CREAT 2.05 H GFR-Non 23 A GFR- 28 A Calcium, Serum 9.0 Radiology Results: Results: Impression: Mild compression deformities of several thoracic vertebral bodies without edema or retropulsion. There is no central canal stenosis in the thoracic region. Multilevel lumbar spondylosis as detailed. Extensive edema within the posterior paraspinous soft tissues particularly surrounding bilateral L4-L5 facets. Partially visualized edema within the presacral soft tissues, also noted on prior CT abdomen and pelvis. MRI T Spine without Contrast [May 04 2020 1:47PM] Impression: Mild compression deformities of several thoracic vertebral bodies without edema or retropulsion. There is no central canal stenosis in the thoracic region. Multilevel lumbar spondylosis as detailed. Extensive edema within the posterior paraspinous soft tissues particularly surrounding bilateral L4-L5 facets. Partially visualized edema within the presacral soft tissues, also noted on prior CT abdomen and pelvis. MRI L Spine without Contrast [May 04 2020 1:47PM] Impression: 1 to 15% stenosis right internal carotid artery. 1 to 15% stenosis left internal carotid artery. Blood flow is antegrade in the right vertebral artery. Blood flow is antegrade in the left vertebral artery. If clinically indicated we could repeat the study in 1 year. Ultrasound Carotid Bilateral Duplex [May 03 2020 8:00PM] Impression: Chest 1. Small to moderate left pleural effusion and small right pleural effusion with mild right consolidative opacities. Age-indeterminate wedge compression deformity of the T10 vertebral body with less than 25% height loss. 2. Limited evaluation without the administration of intravenous contrast. Abdomen-Pelvis 1. Solitary right kidney with a nonspecific hypodensity and calcified lesion as seen on prior ultrasound, not fully evaluated on the current noncontrast exam. Contrast a cross-sectional imaging is recommended for evaluation when clinically appropriate. 2. Mild presacral and lateral body wall soft tissue edema, correlate with volume status. 3. Air in the urinary bladder, correlate with recent intervention or correlate with urinalysis if there is concern for infection. 4. Additional findings as above. CT Chest Abdomen Pelvis without Contrast [May 03 2020 10:24AM] Impression: CT Abdomen and Pelvis without Contrast [May 02 2020 4:41PM] Impression: 1. Lower lung airspace disease greater on the left. Xray Chest 2 View PA + Lateral [May 02 2020 1:50PM] Conclusion: CONCLUSIONS: 1. The left ventricular systolic function is normal with a 60-65% estimated ejection fraction. 2. Spectral Doppler shows an impaired relaxation pattern of left ventricular diastolic filling. 3. Mild aortic valve stenosis. 4. There is moderate aortic valve cusp calcification. 5. Mild to moderately elevated pulmonary artery pressure. QUANTITATIVE DATA SUMMARY: 2D MEASUREMENTS: Normal Ranges: Ao Root d: 2.70 cm (2.0-3.7cm) LAs: 3.20 cm (2.7-4.0cm) IVSd: 1.44 cm (0.6-1.1cm) LVPWd: 1.34 cm (0.6-1.1cm) LVIDd: 2.51 cm (3.9-5.9cm) LVIDs: 1.97 cm LV Mass Index: 61.5 g/m2 LV % FS 21.5 % LA VOLUME: Normal Ranges: LA Volume Index: 32.1 ml/m2 RA VOLUME BY A/L METHOD: Normal Ranges: RA Vol A4C: 45.7 ml (8.3-19.5ml) RA Vol Index A4C: 25.4 ml/m2 RA Area A4C: 16.4 cm2 RA Major [place] A4C: 5.0 cm M-MODE MEASUREMENTS: Normal Ranges: Ao Root: 3.00 cm (2.0-3.7cm) AoV Exc: 1.20 cm (1.5-2.5cm) LAs: 3.00 cm (2.7-4.0cm) AORTA MEASUREMENTS: Normal Ranges: AoV Exc: 1.20 cm (1.5-2.5cm) LV SYSTOLIC FUNCTION BY 2D PLANIMETRY (MOD): Normal Ranges: EF-A4C View: 56.0 % (>55%) EF-A2C View: 57.4 % EF-Biplane: 55.9 % LV DIASTOLIC FUNCTION: Normal Ranges: MV Peak E: 0.65 m/s (0.7-1.2 m/s) MV Peak A: 1.32 m/s (0.42-0.7 m/s) E/A Ratio: 0.49 (1.0-2.2) MV e' 0.07 m/s (>8.0) MV lateral e' 0.06 m/s MV medial e' 0.07 m/s E/e' Ratio: 9.29 (<8.0) a' 0.12 m/s MITRAL VALVE: Normal Ranges: MV Vmax: 0.58 m/s (<1.3m/s) MV peak P.3 mmHg (<5mmHg) MV DT: 232 msec (150-240msec) AORTIC VALVE: Normal Ranges: AoV Mean P.0 mmHg (1.7-11.5mmHg) LVOT Max Tegan: 1.09 m/s (<1.1m/s) AoV VTI: 34.40 cm (18-25cm) LVOT VTI: 22.80 cm LVOT Diameter: 1.70 cm (1.8-2.4cm) AoV Area, VTI: 1.50 cm2 (2.5-5.5cm2) AoV Dimensionless Index: 0.66 RIGHT VENTRICLE: RV 1 3.7 cm RV 2 2.8 cm RV 3 6.3 cm TAPSE: 18.7 mm RV s' 0.24 m/s TRICUSPID VALVE/RVSP: Normal Ranges: Peak TR Velocity: 3.09 m/s RV Syst Pressure: 41.2 mmHg (< 30mmHg) IVC Diam: 1.40 cm PULMONIC VALVE: Normal Ranges: PV Accel Time: 95 msec (>120ms) PV Max Tegan: 1.2 m/s (0.6-0.9m/s) PV Max P.2 mmHg [id number] Tremayne Mcleod MD Electronically signed on 05/02/2020 at 1:08:29 PM Final Echocardiogram [May 02 2020 1:08PM] Impression: No evidence of hydronephrosis. Nonobstructing calculus at the upper pole. Complex cyst with calcification given hypodensity at the level of the renal hilum for which nonemergent CT would be recommended for further evaluation. Ultrasound Renal Bilateral [May 02 2020 12:57PM] Assessment and Plan: Code Status: Code StatusDNAR with Added Limitations Assessment: Aspiration pneumonia UTI Electronic Signatures: Alberto Allred) (Signed 07-May-2020 13:30) Authored: Service, History of Present Illness, Subjective Data, Objective Data, Assessment and Plan, Note Completion Last Updated: 07-May-2020 13:30 by Alberto Allred) [facility] Daily Progress Note-Nephrolo gyon 05-07-2020 Daily Progress Note-Nephrology Service: Nephrology Subjective Data: LINDA PERALTA is a 75 year old Female who is Hospital Day # 6. renal function continues to slowly improve, uric acid and phos improving as well. Objective Data: Objective Information: T PRBPSpO2 [id number]/9897% Date/Time05/07 8: 8: 8: 8: 8:01 Range(36C - 36.8C ) (77 - 85 ) (18 - 20 ) (125 - 170 )/ (80 - 98 ) (94% - 98% ) Pain reported at 05/06 23:56: 0 = None ---- Intake and Output ----- Mn/Dy/Year TimeIntakeOutputNet May 06, 2020 10:00 [id number] May 06, 2020 2:00 [id number] The Intake and Output Totals for the last 24 hours are: IntakeOutputNet [id number] Constitutional: Alert, in no acute distress HEENT: NC/AT, anicteric Neck: supple, no mass Lungs: CTAB, non-labored respirations Heart: RRR, no murmur Abdomen: soft, NT, ND Ext: no cyanosis, no peripheral edema Neuro: Alert, follows commands Medication: Medications: Continuous Medications -------- No continuous medications are active Scheduled Medications -------- 1. Allopurinol: 200 mg Oral Every 24 Hours 2. Atorvastatin: 10 mg Oral Daily 3. Fluticasone 50 microgram/ Nasal Inhalation: 1 spray(s) Each Nostril Daily 4. Hydrocortisone Na Succinate Injectable: 25 mg IntraVenous Push Every 12 Hours 5. Menthol 0.44% - Zinc Oxide 20.625% Topical: 1 application(s) Topical 3 Times a Day 6. Pantoprazole Injectable: 40 mg IntraVenous Push Every 24 Hours 7. Sevelamer Carbonate: 800 mg Oral 3 Times a Day With Meals 8. Warfarin: 2.5 mg Oral Daily PRN Medications -------- 1. Acetaminophen: 650 mg Oral Every 4 Hours 2. hydrALAZINE (APRESOLINE) Injectable: 5 mg IntraVenous Push Every 6 Hours 3. Magnesium Hydroxide -Al Hydrox -Simethicone Oral Liquid: 30 mL Oral Every 4 Hours 4. Morphine Injectable: 1 mg IntraVenous Push Every 4 Hours 5. Nitroglycerin SubLingual: 0.4 mg SubLingual Every 5 Minutes 6. Ondansetron Injectable: 4 mg IntraVenous Push Every 4 Hours Conditional Medication Orders -------- 1. Perflutren Lipid Microsphere (Activated) 1.3 mL / NaCL 0.9% T.V. 10 mL Injectable: 0.5 mL IntraVenous Push Once Currently Suspended Medications -------- 1. Fludrocortisone: 0.1 mg Oral Daily 2. Hydrocortisone: 10 mg Oral Daily 3. Hydrocortisone: 20 mg Oral Daily 1800 Recent Lab Results: Results: CBC: 05/07/2020 05:42 \ Hgb / \ 9.8 L / WBC Plt 18.5 H 279 / Hct \ / 30.4 L \ RBC: 3.31 L MCV: 92 BMP: 05/06/2020 16:58 NA+ Cl- BUN / 138 97 L 57 H / -------- Glucose --- 124 H K+ HCO3- Creat \ 3.9 31 2.05 H \ Calcium : 9.0 Anion Gap : 14 CMP: 05/07/2020 05:42 NA+ Cl- BUN / 136 99 55 H / -------- Glucose --- 86 K+ HCO3- Creat \ 4.0 27 1.95 H \ \ T Bili / \ 0.9 / AST x ---- x ALT 20 x ---- x 31 / Alk P \ / 80 \ Calcium : 9.0 Anion Gap : 14 Albumin : 2.9 L T Protein : 5.0 L Assessment and Plan: Code Status: Code StatusDNAR with Added Limitations Assessment: LINDA PERALTA is a 75 year old Female w/ history s/f HTN, CAD, moris's disease, solitary kidney c/b RCC s/p partial nephrectomy, DVT/PE who was [facility], hypercalcemia and hypotension now transferred here. 1. ANGELA on CKD: previously hypotensive at [facility], now hypertensive, also CRS as pt is volume overloaded on exam vs. crystal induced (hypercalcemic, hyperphosphatemic, hyperuricemic), not on any nephrotoxic medications, not rhabdomyolysis (nml CK even though has high phos and uric acid), does have risk factors for CKD due to donating LT kidney hence has RT solitary kidney c/b RCC s/p RT partial nephrectomy, slowly improving 2. Hypercalcemia/hyperphosp hatemia: PTHrp related, had low nml PTH (appropriate), Vit D 25 and 1,25, nml SPEP as well 3. Hyperuricemia: has nml CK, unlikely related to TLS (has high phos but would also expect hyperkalemia though this could be affected w/ pt on florinef and likely hypocalcemia), not on thiazides, can be seen in sarcoidosis, hyperparathyroidism, hypothyroidism 4. HTN: could be due to medications (on florinef, hydrocortisone) or increased salt load from IVFs 5. Adrenal insufficiency: on florinef and hydrocortisone Plan: - encourage PO - continue allopurinol - continue holding lasix - stopping phos bindrs - monitor BP and function, baseline Scr Electronic Signatures: Leigh Billy) (Signed 07-May-2020 11:30) Authored: Service, Subjective Data, Objective Data, Assessment and Plan, Note Completion Last Updated: 07-May-2020 11:30 by Leigh Billy) Normal [facility] Daily Progress Note-Neurolog yon 05-07-2020 Daily Progress Note-Neurology Service: Neurology Subjective Data: LINDA PERALTA is a 75 year old Female who is Hospital Day # 6. The patient examined feeling somewhat better Working with the physical and occupational therapy Oral intake improving She is on Maalox did not help. She did not want Zofran or Phenergan Patient feeling better today Weakness in the legs continues but better. MRI of the cervical, thoracic and lumbar spine showed multilevel disc disease and osteoarthritis. Multilevel compression deformities in the thoracic spine without any significant stenosis Serum calcium is better. Objective Data: Objective Information: T PRBPSpO2 [id number]/8697% Date/Time05/07 19: 19: 19: 19: 19:14 Range(36C - 36.6C ) (77 - 85 ) (20 - 20 ) (131 - 170 )/ (80 - 98 ) (94% - 97% ) Pain reported at 05/07 12:04: 0 = None ---- Intake and Output ----- Mn/Dy/[facility] May 07, 2020 2:00 [id number] May 06, 2020 10:00 [id number] The Intake and Output Totals for the last 24 hours are: IntakeOutputNet [id number] Physical Exam by System: Neurological: The patient is awake and more alert. Had generalized weakness, slow improvement. Physical, occupational therapy working with the patient Patient is in no distress There is no jerking There are no involuntary movements Vision is clear Speech is clear Rehab to work with the patient Strength is slowly improving No new problem Medication: Medications: Continuous Medications -------- No continuous medications are active Scheduled Medications -------- 1. Allopurinol: 200 mg Oral Every 24 Hours 2. Atorvastatin: 10 mg Oral Daily 3. Fluticasone 50 microgram/ Nasal Inhalation: 1 spray(s) Each Nostril Daily 4. Hydrocortisone: 10 mg Oral Daily 5. Hydrocortisone: 20 mg Oral Daily 1800 6. Menthol 0.44% - Zinc Oxide 20.625% Topical: 1 application(s) Topical 3 Times a Day 7. Pantoprazole Injectable: 40 mg IntraVenous Push Every 24 Hours 8. Warfarin: 2.5 mg Oral Daily PRN Medications -------- 1. Acetaminophen: 650 mg Oral Every 4 Hours 2. hydrALAZINE (APRESOLINE) Injectable: 5 mg IntraVenous Push Every 6 Hours 3. Magnesium Hydroxide -Al Hydrox -Simethicone Oral Liquid: 30 mL Oral Every 4 Hours 4. Morphine Injectable: 1 mg IntraVenous Push Every 4 Hours 5. Nitroglycerin SubLingual: 0.4 mg SubLingual Every 5 Minutes 6. Ondansetron Injectable: 4 mg IntraVenous Push Every 4 Hours Conditional Medication Orders -------- 1. Perflutren Lipid Microsphere (Activated) 1.3 mL / NaCL 0.9% T.V. 10 mL Injectable: 0.5 mL IntraVenous Push Once Currently Suspended Medications -------- 1. Fludrocortisone: 0.1 mg Oral Daily Recent Lab Results: Results: CBC: 05/07/2020 05:42 \ Hgb / \ 9.8 L / WBC Plt 18.5 H 279 / Hct \ / 30.4 L \ RBC: 3.31 L MCV: 92 CMP: 05/07/2020 05:42 NA+ Cl- BUN / 136 99 55 H / -------- Glucose --- 86 K+ HCO3- Creat \ 4.0 27 1.95 H \ \ T Bili / \ 0.9 / AST x ---- x ALT 20 x ---- x 31 / Alk P \ / 80 \ Calcium : 9.0 Anion Gap : 14 Albumin : 2.9 L T Protein : 5.0 L I have reviewed these laboratory results: Comprehensive Metabolic Panel 07-May-2020 05:42:00 ResultValue Glucose, Serum 86 NA 136 K 4.0 CL 99 Bicarbonate, Serum 27 Anion Gap, Serum 14 BUN 55 H CREAT 1.95 H GFR-Non 25 A GFR- 30 A Calcium, Serum 9.0 ALB 2.9 L ALKP 80 T Pro 5.0 L T Bili 0.9 Alanine Aminotransferase, Serum 31 Aspartate Transaminase, Serum 20 Complete Blood Count 07-May-2020 05:42:00 ResultValue White Blood Cell Count 18.5 H Red Blood Cell Count 3.31 L HGB 9.8 L HCT 30.4 L MCV 92 MCHC 32.2 PLT 279 RDW-CV 15.5 H Phosphorus, Serum 07-May-2020 05:42:00 ResultValue Phosphorus, Serum 3.3 Uric Acid, Serum 07-May-2020 05:42:00 ResultValue Uric Acid, Serum 8.1 H Radiology Results: Results: Impression: Mild compression deformities of several thoracic vertebral bodies without edema or retropulsion. There is no central canal stenosis in the thoracic region. Multilevel lumbar spondylosis as detailed. Extensive edema within the posterior paraspinous soft tissues particularly surrounding bilateral L4-L5 facets. Partially visualized edema within the presacral soft tissues, also noted on prior CT abdomen and pelvis. MRI T Spine without Contrast [May 04 2020 1:47PM] Impression: Mild compression deformities of several thoracic vertebral bodies without edema or retropulsion. There is no central canal stenosis in the thoracic region. Multilevel lumbar spondylosis as detailed. Extensive edema within the posterior paraspinous soft tissues particularly surrounding bilateral L4-L5 facets. Partially visualized edema within the presacral soft tissues, also noted on prior CT abdomen and pelvis. MRI L Spine without Contrast [May 04 2020 1:47PM] Assessment and Plan: Admitting Dx: Hypercalcemia: Entered Date: 02-May-2020 02:09 Additional Dx: Change in mental status: Onset Date: 04-May-2020, Entered Date: 04-May-2020 11:21 Code Status: Code StatusDNAR with Added Limitations Assessment: The patient had episode of change in the mental status probably metabolic:The patient is improving She has a minimal psychomotor slowingImproving History of gait ataxia and falls she needs 1 person assist to ambulate her, Improving Change of peripheral neuropathy probably uremic Patient is admitted here for the B12 and vitamin D deficiency in the past adnexa urinary tract infection recently could have made her mental status. 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 Sarcoidosis History of [place]'s disease Gout 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 Hyperlipidemia Atopic dermatitis has been treated Lower lung airway disease Aortic valve cusp calcification mild to moderate her She is on warfarin for the DVT, pulmonary emboli Elevated pulmonary artery pressure Anemia being large Recommendations EEGOrdered Folic acid level normal Continue with the physical therapy 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 Therapy Orthostatic blood pressures i MRI of the spine did not show high-grade stenosis, patient has a multilevel disc disease and spondylosis Varying degrees of compression fractures thoracic Ultrasound carotid arteriesFeel 1 to 15% stenosis To continue supportive measures Patient is improving Electronic Signatures: Vicky Boyd) (Signed 07-May-2020 19:58) Authored: Service, Subjective Data, Objective Data, Assessment and Plan, Note Completion Last Updated: 07-May-2020 19:58 by Vicky Boyd) [facility] Daily Progress Note-Neurology Service: Neurology Subjective Data: LINDA PERALTA is a 75 year old Female who is Hospital Day # 5. The patient examined feeling somewhat better Working with the physical and occupational therapy Overall intake improving She is on Maalox did not help. She did not want Zofran or Phenergan Patient feeling better today Weakness in the legs continues but better. MRI of the cervical, thoracic and lumbar spine showed multilevel disc disease and osteoarthritis. Multilevel compression deformities in the thoracic spine without any significant stenosis Serum calcium is better. Objective Data: Objective Information: T PRBPSpO2 [id number]/8194% Date/Time05/06 19: 19: 19: 19: 19:32 Range(36.6C - 36.8C ) (71 - 85 ) (18 - 18 ) (125 - 162 )/ (81 - 96 ) (88% - 99% ) Pain reported at 05/06 11:17: 0 = None ---- Intake and Output ----- Mn/Dy/Year TimeIntakeOutputNet May 06, 2020 10:00 [id number] May 06, 2020 2:00 [id number] The Intake and Output Totals for the last 24 hours are: IntakeOutputNet [id number] Physical Exam by System: Neurological: The patient is awake and more alert. Had generalized weakness physical, occupational therapy working with the patient Patient is in no distress There is no jerking There are no involuntary movements Vision is clear Speech is clear Rehab to work with the patient Strength is slowly improving No new problem Medication: Medications: Continuous Medications -------- No continuous medications are active Scheduled Medications -------- 1. Allopurinol: 200 mg Oral Every 24 Hours 2. Atorvastatin: 10 mg Oral Daily 3. Fluticasone 50 microgram/ Nasal Inhalation: 1 spray(s) Each Nostril Daily 4. Hydrocortisone Na Succinate Injectable: 25 mg IntraVenous Push Every 12 Hours 5. Menthol 0.44% - Zinc Oxide 20.625% Topical: 1 application(s) Topical 3 Times a Day 6. Pantoprazole Injectable: 40 mg IntraVenous Push Every 24 Hours 7. Sevelamer Carbonate: 800 mg Oral 3 Times a Day With Meals 8. Warfarin: 2.5 mg Oral Daily PRN Medications -------- 1. Acetaminophen: 650 mg Oral Every 4 Hours 2. hydrALAZINE (APRESOLINE) Injectable: 5 mg IntraVenous Push Every 6 Hours 3. Magnesium Hydroxide -Al Hydrox -Simethicone Oral Liquid: 30 mL Oral Every 4 Hours 4. Morphine Injectable: 1 mg IntraVenous Push Every 4 Hours 5. Nitroglycerin SubLingual: 0.4 mg SubLingual Every 5 Minutes 6. Ondansetron Injectable: 4 mg IntraVenous Push Every 4 Hours Conditional Medication Orders -------- 1. Perflutren Lipid Microsphere (Activated) 1.3 mL / NaCL 0.9% T.V. 10 mL Injectable: 0.5 mL IntraVenous Push Once Currently Suspended Medications -------- 1. Fludrocortisone: 0.1 mg Oral Daily 2. Hydrocortisone: 10 mg Oral Daily 3. Hydrocortisone: 20 mg Oral Daily 1800 Recent Lab Results: Results: BMP: 05/06/2020 16:58 NA+ Cl- BUN / 138 97 L 57 H / -------- Glucose --- 124 H K+ HCO3- Creat \ 3.9 31 2.05 H \ Calcium : 9.0 Anion Gap : 14 I have reviewed these laboratory results: Basic Metabolic Panel 06-May-2020 16:58:00 ResultValue Glucose, Serum 124 H NA 138 K 3.9 CL 97 L Bicarbonate, Serum 31 Anion Gap, Serum 14 BUN 57 H CREAT 2.05 H GFR-Non 23 A GFR- 28 A Calcium, Serum 9.0 Magnesium, Serum 06-May-2020 05:38:00 ResultValue Magnesium, Serum 1.80 Radiology Results: Results: Impression: Mild compression deformities of several thoracic vertebral bodies without edema or retropulsion. There is no central canal stenosis in the thoracic region. Multilevel lumbar spondylosis as detailed. Extensive edema within the posterior paraspinous soft tissues particularly surrounding bilateral L4-L5 facets. Partially visualized edema within the presacral soft tissues, also noted on prior CT abdomen and pelvis. MRI T Spine without Contrast [May 04 2020 1:47PM] Impression: Mild compression deformities of several thoracic vertebral bodies without edema or retropulsion. There is no central canal stenosis in the thoracic region. Multilevel lumbar spondylosis as detailed. Extensive edema within the posterior paraspinous soft tissues particularly surrounding bilateral L4-L5 facets. Partially visualized edema within the presacral soft tissues, also noted on prior CT abdomen and pelvis. MRI L Spine without Contrast [May 04 2020 1:47PM] Assessment and Plan: Admitting Dx: Hypercalcemia: Entered Date: 02-May-2020 02:09 Additional Dx: Change in mental status: Onset Date: 04-May-2020, Entered Date: 04-May-2020 11:21 Code Status: Code StatusDNAR with Added Limitations Assessment: The patient had episode of change in the mental status probably metabolic:The patient is improving She has a minimal psychomotor slowingImproving History of gait ataxia and falls she needs 1 person assist to ambulate her, Improving Change of peripheral neuropathy probably uremic Patient is admitted here for the B12 and vitamin D deficiency in the past adnexa urinary tract infection recently could have made her mental status. 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 Sarcoidosis History of [place]'s disease Gout 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 Hyperlipidemia Atopic dermatitis has been treated Lower lung airway disease Aortic valve cusp calcification mild to moderate her She is on warfarin for the DVT, pulmonary emboli Elevated pulmonary artery pressure Recommendations EEGOrdered Folic acid level normal Continue with the physical therapy 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 Therapy Orthostatic blood pressures i MRI of the spine did not show high-grade stenosis, patient has a multilevel disc disease and spondylosis Varying degrees of compression fractures thoracic Ultrasound carotid arteriesFeel 1 to 15% stenosis To continue supportive measures Patient is improving Electronic Signatures: Vicky Boyd) (Signed 06-May-2020 22:03) Authored: Service, Subjective Data, Objective Data, Assessment and Plan, Note Completion Last Updated: 06-May-2020 22:03 by Vicky Boyd) [facility] Daily Progress Note-Urologyo n 05-07-2020 Daily Progress Note-Urology Service: Urology Subjective Data: LINDA PERALTA is a 75 year old Female who is Hospital Day # 6. Urology progress note for , 05/07/20, Quan catheter removed this morning, patient is not voided as of 12 noon however reviewed with nursing and they will check patient with bladder scanning and straight catheter when necessary Observe over 24 hours Discharge planning also is in progress for transfer to rehabilitation Additional medical and historical objective data reviewed and listed below Urology progress note for 05/06/20 Patient seems more alert and generally feels better today Urine clear per Quan catheter Serum creatinine elevated but seems stable at current level Discharge planning apparently in progress possible transfer to rehabilitation Therefore we will proceed with a voiding trial currently, discontinue Quan catheter early tomorrow morning with a voiding trial and observe clinically Otherwise continue supportive care Additional medical and historical objective data reviewed and listed below Urology progress note for Monday05/05/20, Quan catheter in place draining yellow clear urine Today's sitting at the bedside, still feels weak somewhat lethargic Renal insufficiency persists serum creatinine 2.28 wBC count elevated at 19,900 Currently off antibiotics and observation as per infectious disease Still planning to wait for some reasonable improvement in overall medical status ambulation and mobility and then planning to remove Quan catheter for a voiding trial Otherwise continue supportive care Additional medical and historical objective data reviewed and listed below. Objective Data: Objective Information: T PRBPSpO2 [id number]/8697% Date/Time05/07 14:033 14: 14: 14: 14:03 Range(36C - 36.8C ) (77 - 85 ) (18 - 20 ) (125 - 170 )/ (80 - 98 ) (94% - 97% ) Pain reported at 05/07 12:04: 0 = None ---- [facility] and Output ----- [facility], 2020 2:00 [id number] May 06, 2020 10:00 [id number] The Intake and Output Totals for the last 24 hours are: IntakeOutputNet [id number] T PRBPSpO2 [id number]/8697% Date/Time05/07 14: 14: 14: 14: 14:03 Range(36C - 36.8C ) (77 - 85 ) (18 - 20 ) (125 - 170 )/ (80 - 98 ) (94% - 97% ) Pain reported at 05/07 12:04: 0 = None ---- [facility] and [facility] ----- [facility] 07, 2020 2:00 [id number] May 06, 2020 10:00 [id number] The Intake and Output Totals for the last 24 hours are: IntakeOutputNet [id number] ---Intake--- Enteral - Oral PO Fluid/Feed (oral): 150 mL ---Output--- Urine Indwelling Catheter - Urethral: 4700 mL Indwelling Catheter - Urethral: 4700 mL Intake Output Enteral - Oral 150 mL Urine 4700 mL Medication: Medications: CARDIOVASCULAR AGENTS: 1. Nitroglycerin SubLingual: 0.4 mg SubLingual Every 5 Minutes PRN 2. hydrALAZINE (APRESOLINE) Injectable: 5 mg IntraVenous Push Every 6 Hours PRN CENTRAL NERVOUS SYSTEM AGENTS: 1. Acetaminophen: 650 mg Oral Every 4 Hours PRN 2. Morphine Injectable: 1 mg IntraVenous Push Every 4 Hours PRN 3. Ondansetron Injectable: 4 mg IntraVenous Push Every 4 Hours PRN COAGULATION MODIFIERS: 1. Warfarin: 2.5 mg Oral Daily GASTROINTESTINAL AGENTS: 1. Magnesium Hydroxide -Al Hydrox -Simethicone Oral Liquid: 30 mL Oral Every 4 Hours PRN 2. Pantoprazole Injectable: 40 mg IntraVenous Push Every 24 Hours HORMONES/HORMONE MODIFIERS: 1. Hydrocortisone: 10 mg Oral Daily 2. Hydrocortisone: 20 mg Oral Daily 1800 METABOLIC AGENTS: 1. Allopurinol: 200 mg Oral Every 24 Hours 2. Atorvastatin: 10 mg Oral Daily TOPICAL AGENTS: 1. Menthol 0.44% - Zinc Oxide 20.625% Topical: 1 application(s) Topical 3 Times a Day 2. Fluticasone 50 microgram/ Nasal Inhalation: 1 spray(s) Each Nostril Daily Conditional Medication Orders -------- 1. Perflutren Lipid Microsphere (Activated) 1.3 mL / NaCL 0.9% T.V. 10 mL Injectable: 0.5 mL IntraVenous Push Once Currently Suspended Medications -------- 1. Fludrocortisone: 0.1 mg Oral Daily Recent Lab Results: Results: CBC: 05/07/2020 05:42 \ Hgb / \ 9.8 L / WBC Plt 18.5 H 279 / Hct \ / 30.4 L \ RBC: 3.31 L MCV: 92 BMP: 05/06/2020 16:58 NA+ Cl- BUN / 138 97 L 57 H / -------- Glucose --- 124 H K+ HCO3- Creat \ 3.9 31 2.05 H \ Calcium : 9.0 Anion Gap : 14 CMP: 05/07/2020 05:42 NA+ Cl- BUN / 136 99 55 H / -------- Glucose --- 86 K+ HCO3- Creat \ 4.0 27 1.95 H \ \ T Bili / \ 0.9 / AST x ---- x ALT 20 x ---- x 31 / Alk P \ / 80 \ Calcium : 9.0 Anion Gap : 14 Albumin : 2.9 L T Protein : 5.0 L I have reviewed these laboratory results: Comprehensive Metabolic Panel 07-May-2020 05:42:00 ResultValue Glucose, Serum 86 NA 136 K 4.0 CL 99 Bicarbonate, Serum 27 Anion Gap, Serum 14 BUN 55 H CREAT 1.95 H GFR-Non 25 A GFR- 30 A Calcium, Serum 9.0 ALB 2.9 L ALKP 80 T Pro 5.0 L T Bili 0.9 Alanine Aminotransferase, Serum 31 Aspartate Transaminase, Serum 20 Complete Blood Count 07-May-2020 05:42:00 ResultValue White Blood Cell Count 18.5 H Red Blood Cell Count 3.31 L HGB 9.8 L HCT 30.4 L MCV 92 MCHC 32.2 PLT 279 RDW-CV 15.5 H Phosphorus, Serum 07-May-2020 05:42:00 ResultValue Phosphorus, Serum 3.3 Uric Acid, Serum 07-May-2020 05:42:00 ResultValue Uric Acid, Serum 8.1 H Basic Metabolic Panel Trending View [id number] 16:58:00 06-May-2020 05:38:00 Glucose, [id number] H 100 H NA138 141 K3.9 2.9 LL CL97 L 100 Bicarbonate, Serum31 32 Anion Gap, Serum14 12 BUN57 H 62 H CREAT2.05 H 2.15 H GFR-Non [id number] A 22 A GFR- [id number] A 27 A Calcium, Serum9.0 9.0 Lab Comment: Called- RB to Rogelio, 05/06/2020 06:54 Radiology Results: Results: Impression: Mild compression deformities of several thoracic vertebral bodies without edema or retropulsion. There is no central canal stenosis in the thoracic region. Multilevel lumbar spondylosis as detailed. Extensive edema within the posterior paraspinous soft tissues particularly surrounding bilateral L4-L5 facets. Partially visualized edema within the presacral soft tissues, also noted on prior CT abdomen and pelvis. MRI T Spine without Contrast [May 04 2020 1:47PM] Impression: Mild compression deformities of several thoracic vertebral bodies without edema or retropulsion. There is no central canal stenosis in the thoracic region. Multilevel lumbar spondylosis as detailed. Extensive edema within the posterior paraspinous soft tissues particularly surrounding bilateral L4-L5 facets. Partially visualized edema within the presacral soft tissues, also noted on prior CT abdomen and pelvis. MRI L Spine without Contrast [May 04 2020 1:47PM] Impression: 1 to 15% stenosis right internal carotid artery. 1 to 15% stenosis left internal carotid artery. Blood flow is antegrade in the right vertebral artery. Blood flow is antegrade in the left vertebral artery. If clinically indicated we could repeat the study in 1 year. Ultrasound Carotid Bilateral Duplex [May 03 2020 8:00PM] Impression: Chest 1. Small to moderate left pleural effusion and small right pleural effusion with mild right consolidative opacities. Age-indeterminate wedge compression deformity of the T10 vertebral body with less than 25% height loss. 2. Limited evaluation without the administration of intravenous contrast. Abdomen-Pelvis 1. Solitary right kidney with a nonspecific hypodensity and calcified lesion as seen on prior ultrasound, not fully evaluated on the current noncontrast exam. Contrast a cross-sectional imaging is recommended for evaluation when clinically appropriate. 2. Mild presacral and lateral body wall soft tissue edema, correlate with volume status. 3. Air in the urinary bladder, correlate with recent intervention or correlate with urinalysis if there is concern for infection. 4. Additional findings as above. CT Chest Abdomen Pelvis without Contrast [May 03 2020 10:24AM] Impression: CT Abdomen and Pelvis without Contrast [May 02 2020 4:41PM] Impression: No evidence of hydronephrosis. Nonobstructing calculus at the upper pole. Complex cyst with calcification given hypodensity at the level of the renal hilum for which nonemergent CT would be recommended for further evaluation. Ultrasound Renal Bilateral [May 02 2020 12:57PM] Assessment and Plan: Admitting Dx: Hypercalcemia: Entered Date: 02-May-2020 02:09 Additional Dx: Change in mental status: Onset Date: 04-May-2020, Entered Date: 04-May-2020 11:21 Code Status: Code StatusDNAR with Added Limitations Electronic Signatures: Alvin Sawyer) (Signed 07-May-2020 16:37) Authored: Service, Subjective Data, Objective Data, Assessment and Plan, Note Completion Last Updated: 07-May-2020 16:37 by Alvin Sawyer) Normal [facility] PHOSPHORUSon 05-07-2020 Phosphate [Mass/Vol] 3.3 mg/dL Normal 2.5 - 4.9 [facility] Comment on above: Result Comment: The performance characteristics of phosphorus testing in heparinized plasma have been validated by the individual laboratory site where testing is performed. Testing on heparinized plasma is not approved by the FDA; however, such approval is not necessary. Performed By: #### C A #### [address] [id number] PTH RELATED PROTEINon 2020 Protein [Mass/Vol] 0.5 pmol/L Normal < or = 4.2 [facility] Comment on above: Result Comment: ---- ADDITIONAL INFORMATION This test was developed and its performance characteristics determined by [facility] in a manner consistent with CLIA requirements. This test has not been cleared or approved by the U.S. Food and Drug Administration. Test Performed by: [facility] [employer] [place] [address] Machine Clerical Verifier: Sunny Triplett M.D. Ph.D.; CLIA# [id number] Performed By: #### P R12 #### [facility] [address] [place] [address] Protein [Mass/Vol] 0.8 pmol/L Normal < or = 4.2 [facility] Comment on above: Result Comment: ---- ADDITIONAL INFORMATION This test was developed and its performance characteristics determined by [facility] in a manner consistent with CLIA requirements. This test has not been cleared or approved by the U.S. Food and Drug Administration. Test Performed by: [place] [address] Machine Clerical Verifier: Sunny Triplett M.D. Ph.D.; CLIA# [id number] Performed By: #### C BC #### [address] [id number] URIC ACIDon 05-07-2020 Urate [Mass/Vol] 8.1 mg/dL High 2.3 - 6.7 [facility] Comment on above: Result Comment: Nadia puncture immediately after or during the administration of Metamizole may lead to falsely low results. Testing should be performed immediately prior to Metamizole dosing. Performed By: #### C BC #### [address] [id number] BASIC METABOLIC PANELon 04-20 Anion gap [Moles/Vol] 14 mmol/L Normal 10 - 20 [facility] Comment on above: Performed By: #### C A #### [address] [id number] Calcium [Mass/Vol] 9.0 mg/dL Normal 8.6 - 10.3 [facility] Comment on above: Performed By: #### C A #### [address] [id number] Chloride [Moles/Vol] 97 mmol/L Low 98 - 107 [facility] Comment on above: Performed By: #### C A #### [address] [id number] Creatinine [Mass/Vol] 2.05 mg/dL High 0.50 - 1.05 [facility] Comment on above: Performed By: #### C A #### [address] [id number] GFR- AM. 28 mL/min/1.73m2 Abnormal >60 [facility] Comment on above: Result Comment: CALC ULATIONS OF ESTIMATED GFR ARE PERFORMED USING THE MDRD STUDY EQUATION FOR THE IDMS-TRACEABLE CREATININE METHODS. CLIN CHEM 2007;53:766-72 Performed By: #### C A #### [address] [id number] GFR-NON AM. 23 mL/min/1.73m2 Abnormal >60 [facility] Comment on above: Performed By: #### C A #### [address] [id number] Glucose [Mass/Vol] 124 mg/dL High 74 - 99 [facility] Comment on above: Performed By: #### C A #### [address] [id number] HCO3 (Bld) [Moles/Vol] 31 mmol/L Normal 21 - 32 [facility] Comment on above: Performed By: #### C A #### [address] [id number] Potassium [Moles/Vol] 3.9 mmol/L Normal 3.5 - 5.3 [facility] Comment on above: Performed By: #### C A #### [address] [id number] Sodium [Moles/Vol] 138 mmol/L Normal 136 - 145 [facility] Comment on above: Performed By: #### C A #### [address] [id number] Urea nitrogen [Mass/Vol] 57 mg/dL High 6 - 23 [facility] Comment on above: Performed By: #### C A #### [address] [id number] Anion gap [Moles/Vol] 12 mmol/L Normal 10 - 20 [facility] Comment on above: Order Comment: Aaron payton- CHASITY Mercado, 05/06/2020 06:54 Performed By: #### B MP ####[address] [id number] Calcium [Mass/Vol] 9.0 mg/dL Normal 8.6 - 10.3 [facility] Comment on above: Order Comment: Aaron payton- CHASITY to Rogelio, 05/06/2020 06:54 Performed By: #### B MP ####[address] [id number] Chloride [Moles/Vol] 100 mmol/L Normal 98 - 107 [facility] Comment on above: Order Comment: Walker d- RB to [place], 05/06/2020 06:54 Performed By: #### B MP ####[address] [id number] Creatinine [Mass/Vol] 2.15 mg/dL High 0.50 - 1.05 [facility] Comment on above: Order Comment: Walker d- RB to [place], 05/06/2020 06:54 Performed By: #### B MP ####[address] [id number] GFR- AM. 27 mL/min/1.73m2 Abnormal >60 [facility] Comment on above: Order Comment: Walker d- RB to [place], 05/06/2020 06:54 Result Comment: CALC ULATIONS OF ESTIMATED GFR ARE PERFORMED USING THE MDRD STUDY EQUATION FOR THE IDMS-TRACEABLE CREATININE METHODS. CLIN CHEM 2007;53:766-72 Performed By: #### B MP ####[address] [id number] GFR-NON AM. 22 mL/min/1.73m2 Abnormal >60 [facility] Comment on above: Order Comment: Walker d- RB to [place], 05/06/2020 06:54 Performed By: #### B MP ####[address] [id number] Glucose [Mass/Vol] 100 mg/dL High 74 - 99 [facility] Comment on above: Order Comment: Walker d- RB to [place], 05/06/2020 06:54 Performed By: #### B MP ####[address] [id number] HCO3 (Bld) [Moles/Vol] 32 mmol/L Normal 21 - 32 [facility] Comment on above: Order Comment: Walker d- RB to [place], 05/06/2020 06:54 Performed By: #### B MP ####[address] [id number] Potassium [Moles/Vol] 2.9 mmol/L Critically low 3.5 - 5.3 [facility] Comment on above: Order Comment: Walker d- RB to Rogelio, 05/06/2020 06:54 Result Comment: Call ed- RB to Rogelio, 05/06/2020 06:54 Performed By: #### B MP ####[facility] [place], [place] [id number] Sodium [Moles/Vol] 141 mmol/L Normal 136 - 145 [facility] Comment on above: Order Comment: Walker d- RB to Rogelio, 05/06/2020 06:54 Performed By: #### B MP ####[facility] [place], [place] [id number] Urea nitrogen [Mass/Vol] 62 mg/dL High 6 - 23 [facility] Comment on above: Order Comment: Walker d- RB to [place], 05/06/2020 06:54 Performed By: #### B MP ####[facility] [place], [place] [id number] Daily Progress Note-Endocrin litzy 05-06-2020 Daily Progress Note-Endocrinology Service: Endocrinology Subjective Data: LINDA PERALTA is a 75 year old Female who is Hospital Day # 5. Additional Information: The patient's daughter is visiting her in the room at this time the patient is doing very well she's awake alert oriented and has no complaints except for generalized weakness lab reviewed and appreciated nephrology being supplemented with potassium Objective Data: Objective Information: T PRBPSpO2 [id number]/9099% Date/Time05/06 7: 7: 7: 7: 7:33 Range(36.2C - 36.7C ) (71 - 82 ) (18 - 18 ) (136 - 162 )/ (82 - 96 ) (88% - 99% ) Pain reported at 05/06 11:17: 0 = None ---- Intake and Output ----- Mn/Dy/Year TimeIntakeOutputNet May 05, 2020 10:00 [id number] May 05, 2020 2:00 [id number] The Intake and Output Totals for the last 24 hours are: IntakeOutputNet [id number] T PRBPSpO2 [id number]/9099% Date/Time05/06 7: 7: 7: 7: 7:33 Range(36.2C - 36.7C ) (71 - 82 ) (18 - 18 ) (136 - 162 )/ (82 - 96 ) (88% - 99% ) Physical Exam by System: Constitutional: Well developed, awake/alert Medication: Medications: Continuous Medications -------- No continuous medications are active Scheduled Medications -------- 1. Allopurinol: 200 mg Oral Every 24 Hours 2. Atorvastatin: 10 mg Oral Daily 3. Fluticasone 50 microgram/ Nasal Inhalation: 1 spray(s) Each Nostril Daily 4. Hydrocortisone Na Succinate Injectable: 25 mg IntraVenous Push Every 12 Hours 5. Menthol 0.44% - Zinc Oxide 20.625% Topical: 1 application(s) Topical 3 Times a Day 6. Pantoprazole Injectable: 40 mg IntraVenous Push Every 24 Hours 7. Potassium Chloride Extended Release: 40 mEq Oral Every 12 Hours 8. Sevelamer Carbonate: 800 mg Oral 3 Times a Day With Meals 9. Warfarin: 2.5 mg Oral Daily PRN Medications -------- 1. Acetaminophen: 650 mg Oral Every 4 Hours 2. hydrALAZINE (APRESOLINE) Injectable: 5 mg IntraVenous Push Every 6 Hours 3. Magnesium Hydroxide -Al Hydrox -Simethicone Oral Liquid: 30 mL Oral Every 4 Hours 4. Morphine Injectable: 1 mg IntraVenous Push Every 4 Hours 5. Nitroglycerin SubLingual: 0.4 mg SubLingual Every 5 Minutes 6. Ondansetron Injectable: 4 mg IntraVenous Push Every 4 Hours Conditional Medication Orders -------- 1. Perflutren Lipid Microsphere (Activated) 1.3 mL / NaCL 0.9% T.V. 10 mL Injectable: 0.5 mL IntraVenous Push Once Currently Suspended Medications -------- 1. Fludrocortisone: 0.1 mg Oral Daily 2. Hydrocortisone: 10 mg Oral Daily 3. Hydrocortisone: 20 mg Oral Daily 1800 Recent Lab Results: Results: BMP: 05/06/2020 05:38 NA+ Cl- BUN / 141 100 62 H / -------- Glucose --- 100 H K+ HCO3- Creat \ 2.9 LL 32 2.15 H \ Calcium : 9.0 Anion Gap : 12 I have reviewed these laboratory results: Basic Metabolic Panel Trending View [id number] 05:38:00 05-May-2020 05:34:00 Lab Comment:Called- RB to Rogelio, 05/06/2020 06:54 Called- RB to Catherine Marroquin, 05/05/2020 06:47 Glucose, [id number] H 98 NA141 139 K2.9 LL 2.9 LL CL100 100 Bicarbonate, Serum32 31 Anion Gap, Serum12 11 BUN62 H 72 H CREAT2.15 H 2.28 H GFR-Non [id number] A 21 A GFR- [id number] A 25 A Calcium, Serum9.0 9.1 Magnesium, Serum 06-May-2020 05:38:00 ResultValue Magnesium, Serum 1.80 Complete Blood Count 05-May-2020 05:35:00 ResultValue White Blood Cell Count 19.9 H Red Blood Cell Count 3.43 L HGB 10.2 L HCT 30.6 L MCV 89 MCHC 33.3 PLT 323 RDW-CV 15.6 H Parathormone Intact, Serum 05-May-2020 05:35:00 ResultValue Parathormone Intact, Serum 31.6 PT + INR, Plasma 05-May-2020 05:34:00 ResultValue Prothrombin Time, Plasma 23.6 H International Normalized Ratio, Plasma 2.0 H Uric Acid, Serum 05-May-2020 05:34:00 ResultValue Uric Acid, Serum 9.7 H Assessment and Plan: Code Status: Code StatusDNAR with Added Limitations Consult Status: Consult Status (select all that apply): follow-up after discharge Impression 1: Hypercalcemia Plan for Impression 1: Hypercalcemia has resolved. Calcium was normal about a 9 and PTH is mid normal. It appears the electronic imbalance occurred which was temporary/transient likely from acute renal failure and others. Impression 2: Adrenal insufficiency Plan for Impression 2: Patient is doing very well on hydrocortisone IV 25 mg twice a day. She can be switched over to by mouth 20 mg in the morning and 10 in the evening Electronic Signatures: Alexander Gregory) (Signed 06-May-2020 12:32) Authored: Service, Subjective Data, Objective Data, Assessment and Plan, Note Completion Last Updated: 06-May-2020 12:32 by Alexander Gregory) Normal [facility] Daily Progress Note-General Internal Medicineon 05-06-2020 Daily Progress Note-General Internal Medicine Service: General Internal Medicine Subjective Data: LINDA PERALTA is a 75 year old Female who is Hospital Day # 5. Seen and examined, looks much better today, denies any fever, chills, chest pain, shortness of breath. Anxious to go home given her 's medical conditions. Aware that she may have to go to rehab facility before discharge. Rest of the ROS is negative. Objective Data: Objective Information: T PRBPSpO2 [id number]/8498% Date/Time05/06 13: 13: 13: 13: 13:40 Range(36.2C - 36.7C ) (71 - 82 ) (18 - 18 ) (132 - 162 )/ (82 - 96 ) (88% - 99% ) Pain reported at 05/06 11:17: 0 = None ---- Intake and Output ----- Mn/Dy/Year TimeIntakeOutputNet May 05, 2020 10:00 [id number] May 05, 2020 2:00 [id number] The Intake and Output Totals for the last 24 hours are: IntakeOutputNet [id number] Physical Exam by System: Constitutional: Well developed, awake/alert/oriented x3, no distress, alert and cooperative Respiratory/Thorax: Patent airways, CTAB, normal breath sounds with good chest expansion, thorax symmetric Cardiovascular: normal S 1and S 2 Gastrointestinal: Positive bowel sounds soft, suprapubic tenderness Musculoskeletal: ROM intact, no joint swelling, normal strength Extremities: Trace bipedal edema Neurological: alert and oriented x3, intact senses, motor, normal strength Psychological: Appropriate mood and behavior Medication: Medications: Continuous Medications -------- No continuous medications are active Scheduled Medications -------- 1. Allopurinol: 200 mg Oral Every 24 Hours 2. Atorvastatin: 10 mg Oral Daily 3. Fluticasone 50 microgram/ Nasal Inhalation: 1 spray(s) Each Nostril Daily 4. Hydrocortisone Na Succinate Injectable: 25 mg IntraVenous Push Every 12 Hours 5. Menthol 0.44% - Zinc Oxide 20.625% Topical: 1 application(s) Topical 3 Times a Day 6. Pantoprazole Injectable: 40 mg IntraVenous Push Every 24 Hours 7. Potassium Chloride Extended Release: 40 mEq Oral Every 12 Hours 8. Sevelamer Carbonate: 800 mg Oral 3 Times a Day With Meals 9. Warfarin: 2.5 mg Oral Daily PRN Medications -------- 1. Acetaminophen: 650 mg Oral Every 4 Hours 2. hydrALAZINE (APRESOLINE) Injectable: 5 mg IntraVenous Push Every 6 Hours 3. Magnesium Hydroxide -Al Hydrox -Simethicone Oral Liquid: 30 mL Oral Every 4 Hours 4. Morphine Injectable: 1 mg IntraVenous Push Every 4 Hours 5. Nitroglycerin SubLingual: 0.4 mg SubLingual Every 5 Minutes 6. Ondansetron Injectable: 4 mg IntraVenous Push Every 4 Hours Conditional Medication Orders -------- 1. Perflutren Lipid Microsphere (Activated) 1.3 mL / NaCL 0.9% T.V. 10 mL Injectable: 0.5 mL IntraVenous Push Once Currently Suspended Medications -------- 1. Fludrocortisone: 0.1 mg Oral Daily 2. Hydrocortisone: 10 mg Oral Daily 3. Hydrocortisone: 20 mg Oral Daily 1800 Recent Lab Results: Results: BMP: 05/06/2020 05:38 NA+ Cl- BUN / 141 100 62 H / -------- Glucose --- 100 H K+ HCO3- Creat \ 2.9 LL 32 2.15 H \ Calcium : 9.0 Anion Gap : 12 Radiology Results: Results: Impression: 1 to 15% stenosis right internal carotid artery. 1 to 15% stenosis left internal carotid artery. Blood flow is antegrade in the right vertebral artery. Blood flow is antegrade in the left vertebral artery. If clinically indicated we could repeat the study in 1 year. Ultrasound Carotid Bilateral Duplex [May 03 2020 8:00PM] Impression: Chest 1. Small to moderate left pleural effusion and small right pleural effusion with mild right consolidative opacities. Age-indeterminate wedge compression deformity of the T10 vertebral body with less than 25% height loss. 2. Limited evaluation without the administration of intravenous contrast. Abdomen-Pelvis 1. Solitary right kidney with a nonspecific hypodensity and calcified lesion as seen on prior ultrasound, not fully evaluated on the current noncontrast exam. Contrast a cross-sectional imaging is recommended for evaluation when clinically appropriate. 2. Mild presacral and lateral body wall soft tissue edema, correlate with volume status. 3. Air in the urinary bladder, correlate with recent intervention or correlate with urinalysis if there is concern for infection. 4. Additional findings as above. CT Chest Abdomen Pelvis without Contrast [May 03 2020 10:24AM] Assessment and Plan: Code Status: Code StatusDNAR with Added Limitations Impression 1: Acute kidney injury/hypercalcemia/hyp eruricemia/hypokalemia Plan for Impression 1: Endocrinology and nephrology following Replaced potassium today, likely aggravated by Lasix Lasix stopped by nephrology Continue current level of care Impression 2: Acute diastolic CHF/bilateral pleural effusion/anasarca Plan for Impression 2: Much improved Off Lasix Impression 3: Adrenal insufficiency on chronic hydrocortisone Plan for Impression 3: On IV hydrocortisone, will resume p.o. on discharge Impression 4: Metabolic encephalopathy, multifactorial related to ANGELA versus infectious etiology Plan for Impression 4: Work-up so far negative Seen by infectious disease, off antibiotics currently Appears alert and oriented today Impression 5: Pneumonia/leukocytosis Plan for Impression 5: Persistent leukocytosis Seen by infectious disease, discontinued IV antibiotics Advised observation for now Impression 6: History of DVT/PE Plan for Impression 6: IVC filter seen on imaging studies, on Coumadin INR therapeutic, check INR daily Impression 7: Acute urinary retention/back pain/bilateral leg weakness Plan for Impression 7: MRI of the lumbar and thoracic region did not show any acute cord compression There is evidence of, nonspecific, likely related to fluid overload state Urology following Orthopedics following, at this point no acute intervention for spinal edema Electronic Signatures: Baldo South) (Signed 06-May-2020 13:56) Authored: Service, Subjective Data, Objective Data, Assessment and Plan, Note Completion Last Updated: 06-May-2020 13:56 by Baldo South) Normal [facility] Daily Progress Note-Infectio us Diseaseon 05-06-2020 Daily Progress Note-Infectious Disease Service: Infectious Disease History of Present Illness: History Present Illness: HPI: Possible aspiration pneumonia Recent UTI with Citrobacter No fevers chills sweats minimal cold Subjective Data: LINDA PERALTA is a 75 year old Female who is Hospital Day # 5. Objective Data: Objective Information: T PRBPSpO2 [id number]/9099% Date/Time05/06 7: 7: 7: 7: 7:33 Range(36.2C - 36.7C ) (71 - 82 ) (18 - 18 ) (136 - 162 )/ (82 - 96 ) (88% - 99% ) Pain reported at 05/06 11:17: 0 = None ---- Intake and Output ----- Mn/Dy/Year TimeIntakeOutputNet May 05, 2020 10:00 [id number] May 05, 2020 2:00 [id number] The Intake and Output Totals for the last 24 hours are: IntakeOutputNet [id number] T PRBPSpO2 [id number]/9099% Date/Time05/06 7: 7: 7: 7: 7:33 Range(36.2C - 36.7C ) (71 - 82 ) (18 - 18 ) (136 - 162 )/ (82 - 96 ) (88% - 99% ) Physical Exam by System: Respiratory/Thorax: Patent airways, CTAB, normal breath sounds with good chest expansion, thorax symmetric Cardiovascular: Regular, rate and rhythm, no murmurs, 2+ equal pulses of the extremities, normal S 1and S 2 Gastrointestinal: Nondistended, soft, non-tender, no rebound tenderness or guarding, no masses palpable, no organomegaly, +BS, no bruits Musculoskeletal: ROM intact, no joint swelling, normal strength Medication: Medications: CARDIOVASCULAR AGENTS: 1. Nitroglycerin SubLingual: 0.4 mg SubLingual Every 5 Minutes PRN 2. hydrALAZINE (APRESOLINE) Injectable: 5 mg IntraVenous Push Every 6 Hours PRN CENTRAL NERVOUS SYSTEM AGENTS: 1. Acetaminophen: 650 mg Oral Every 4 Hours PRN 2. Morphine Injectable: 1 mg IntraVenous Push Every 4 Hours PRN 3. Ondansetron Injectable: 4 mg IntraVenous Push Every 4 Hours PRN COAGULATION MODIFIERS: 1. Warfarin: 2.5 mg Oral Daily GASTROINTESTINAL AGENTS: 1. Magnesium Hydroxide -Al Hydrox -Simethicone Oral Liquid: 30 mL Oral Every 4 Hours PRN 2. Pantoprazole Injectable: 40 mg IntraVenous Push Every 24 Hours HORMONES/HORMONE MODIFIERS: 1. Hydrocortisone Na Succinate Injectable: 25 mg IntraVenous Push Every 12 Hours METABOLIC AGENTS: 1. Allopurinol: 200 mg Oral Every 24 Hours 2. Atorvastatin: 10 mg Oral Daily MISCELLANEOUS AGENTS: 1. Sevelamer Carbonate: 800 mg Oral 3 Times a Day With Meals NUTRITIONAL PRODUCTS: 1. Potassium Chloride 20 mEq/Sterile Water 100 mL Premix IVPB: 20 mEq IntraVenous Piggyback Every 2 Hours 2. Potassium Chloride Extended Release: 40 mEq Oral Every 12 Hours TOPICAL AGENTS: 1. Menthol 0.44% - Zinc Oxide 20.625% Topical: 1 application(s) Topical 3 Times a Day 2. Fluticasone 50 microgram/ Nasal Inhalation: 1 spray(s) Each Nostril Daily Conditional Medication Orders -------- 1. Perflutren Lipid Microsphere (Activated) 1.3 mL / NaCL 0.9% T.V. 10 mL Injectable: 0.5 mL IntraVenous Push Once Currently Suspended Medications -------- 1. Fludrocortisone: 0.1 mg Oral Daily 2. Hydrocortisone: 10 mg Oral Daily 3. Hydrocortisone: 20 mg Oral Daily 1800 Recent Lab Results: Results: I have reviewed these laboratory results: Basic Metabolic Panel 06-May-2020 05:38:00 ResultValue Lab Comment: Called- RB to Rogelio, 05/06/2020 06:54 Glucose, Serum 100 H NA 141 K 2.9 LL CL 100 Bicarbonate, Serum 32 Anion Gap, Serum 12 BUN 62 H CREAT 2.15 H GFR-Non 22 A GFR- 27 A Calcium, Serum 9.0 Magnesium, Serum 06-May-2020 05:38:00 ResultValue Magnesium, Serum 1.80 Complete Blood Count 05-May-2020 05:35:00 ResultValue White Blood Cell Count 19.9 H Red Blood Cell Count 3.43 L HGB 10.2 L HCT 30.6 L MCV 89 MCHC 33.3 PLT 323 RDW-CV 15.6 H Radiology Results: Results: Impression: Mild compression deformities of several thoracic vertebral bodies without edema or retropulsion. There is no central canal stenosis in the thoracic region. Multilevel lumbar spondylosis as detailed. Extensive edema within the posterior paraspinous soft tissues particularly surrounding bilateral L4-L5 facets. Partially visualized edema within the presacral soft tissues, also noted on prior CT abdomen and pelvis. MRI T Spine without Contrast [May 04 2020 1:47PM] Impression: Mild compression deformities of several thoracic vertebral bodies without edema or retropulsion. There is no central canal stenosis in the thoracic region. Multilevel lumbar spondylosis as detailed. Extensive edema within the posterior paraspinous soft tissues particularly surrounding bilateral L4-L5 facets. Partially visualized edema within the presacral soft tissues, also noted on prior CT abdomen and pelvis. MRI L Spine without Contrast [May 04 2020 1:47PM] Impression: 1 to 15% stenosis right internal carotid artery. 1 to 15% stenosis left internal carotid artery. Blood flow is antegrade in the right vertebral artery. Blood flow is antegrade in the left vertebral artery. If clinically indicated we could repeat the study in 1 year. Ultrasound Carotid Bilateral Duplex [May 03 2020 8:00PM] Impression: Chest 1. Small to moderate left pleural effusion and small right pleural effusion with mild right consolidative opacities. Age-indeterminate wedge compression deformity of the T10 vertebral body with less than 25% height loss. 2. Limited evaluation without the administration of intravenous contrast. Abdomen-Pelvis 1. Solitary right kidney with a nonspecific hypodensity and calcified lesion as seen on prior ultrasound, not fully evaluated on the current noncontrast exam. Contrast a cross-sectional imaging is recommended for evaluation when clinically appropriate. 2. Mild presacral and lateral body wall soft tissue edema, correlate with volume status. 3. Air in the urinary bladder, correlate with recent intervention or correlate with urinalysis if there is concern for infection. 4. Additional findings as above. CT Chest Abdomen Pelvis without Contrast [May 03 2020 10:24AM] Impression: CT Abdomen and Pelvis without Contrast [May 02 2020 4:41PM] Impression: 1. Lower lung airspace disease greater on the left. Xray Chest 2 View PA + Lateral [May 02 2020 1:50PM] Conclusion: CONCLUSIONS: 1. The left ventricular systolic function is normal with a 60-65% estimated ejection fraction. 2. Spectral Doppler shows an impaired relaxation pattern of left ventricular diastolic filling. 3. Mild aortic valve stenosis. 4. There is moderate aortic valve cusp calcification. 5. Mild to moderately elevated pulmonary artery pressure. QUANTITATIVE DATA SUMMARY: 2D MEASUREMENTS: Normal Ranges: Ao Root d: 2.70 cm (2.0-3.7cm) LAs: 3.20 cm (2.7-4.0cm) IVSd: 1.44 cm (0.6-1.1cm) LVPWd: 1.34 cm (0.6-1.1cm) LVIDd: 2.51 cm (3.9-5.9cm) LVIDs: 1.97 cm LV Mass Index: 61.5 g/m2 LV % FS 21.5 % LA VOLUME: Normal Ranges: LA Volume Index: 32.1 ml/m2 RA VOLUME BY A/L METHOD: Normal Ranges: RA Vol A4C: 45.7 ml (8.3-19.5ml) RA Vol Index A4C: 25.4 ml/m2 RA Area A4C: 16.4 cm2 RA Major [place] A4C: 5.0 cm M-MODE MEASUREMENTS: Normal Ranges: Ao Root: 3.00 cm (2.0-3.7cm) AoV Exc: 1.20 cm (1.5-2.5cm) LAs: 3.00 cm (2.7-4.0cm) AORTA MEASUREMENTS: Normal Ranges: AoV Exc: 1.20 cm (1.5-2.5cm) LV SYSTOLIC FUNCTION BY 2D PLANIMETRY (MOD): Normal Ranges: EF-A4C View: 56.0 % (>55%) EF-A2C View: 57.4 % EF-Biplane: 55.9 % LV DIASTOLIC FUNCTION: Normal Ranges: MV Peak E: 0.65 m/s (0.7-1.2 m/s) MV Peak A: 1.32 m/s (0.42-0.7 m/s) E/A Ratio: 0.49 (1.0-2.2) MV e' 0.07 m/s (>8.0) MV lateral e' 0.06 m/s MV medial e' 0.07 m/s E/e' Ratio: 9.29 (<8.0) a' 0.12 m/s MITRAL VALVE: Normal Ranges: MV Vmax: 0.58 m/s (<1.3m/s) MV peak P.3 mmHg (<5mmHg) MV DT: 232 msec (150-240msec) AORTIC VALVE: Normal Ranges: AoV Mean P.0 mmHg (1.7-11.5mmHg) LVOT Max Tegan: 1.09 m/s (<1.1m/s) AoV VTI: 34.40 cm (18-25cm) LVOT VTI: 22.80 cm LVOT Diameter: 1.70 cm (1.8-2.4cm) AoV Area, VTI: 1.50 cm2 (2.5-5.5cm2) AoV Dimensionless Index: 0.66 RIGHT VENTRICLE: RV 1 3.7 cm RV 2 2.8 cm RV 3 6.3 cm TAPSE: 18.7 mm RV s' 0.24 m/s TRICUSPID VALVE/RVSP: Normal Ranges: Peak TR Velocity: 3.09 m/s RV Syst Pressure: 41.2 mmHg (< 30mmHg) IVC Diam: 1.40 cm PULMONIC VALVE: Normal Ranges: PV Accel Time: 95 msec (>120ms) PV Max Tegan: 1.2 m/s (0.6-0.9m/s) PV Max P.2 mmHg [id number] Tremayne Mcleod MD Electronically signed on 05/02/2020 at 1:08:29 PM Final Echocardiogram [May 02 2020 1:08PM] Impression: No evidence of hydronephrosis. Nonobstructing calculus at the upper pole. Complex cyst with calcification given hypodensity at the level of the renal hilum for which nonemergent CT would be recommended for further evaluation. Ultrasound Renal Bilateral [May 02 2020 12:57PM] Assessment and Plan: Admitting Dx: Hypercalcemia: Entered Date: 02-May-2020 02:09 Additional Dx: Change in mental status: Onset Date: 04-May-2020, Entered Date: 04-May-2020 11:21 Code Status: Code StatusDNAR with Added Limitations Assessment: Aspiration pneumonia UTI Leukocytosis persist patient is off antibiotics Electronic Signatures: Alberto Allred) (Signed 06-May-2020 12:25) Authored: Service, History of Present Illness, Subjective Data, Objective Data, Assessment and Plan, Note Completion Last Updated: 06-May-2020 12:25 by Alberto Allred) Normal [facility] Daily Progress Note-Nephrolo gyon 05-06-2020 Daily Progress Note-Nephrology Service: Nephrology Subjective Data: LINDA PERALTA is a 75 year old Female who is Hospital Day # 5. renal function slowly improving, K low this AM, getting corrected, feels better. Objective Data: Objective Information: T PRBPSpO2 [id number]/9099% Date/Time05/06 7: 7: 7: 7: 7:33 Range(36.2C - 36.7C ) (71 - 82 ) (18 - 18 ) (136 - 162 )/ (82 - 96 ) (88% - 99% ) Pain reported at 05/06 0:50: 0 = None ---- Intake and Output ----- [facility] 05, 2020 10:00 [id number] May 05, 2020 2:00 [id number] The Intake and Output Totals for the last 24 hours are: IntakeOutputNet [id number] Constitutional: Alert, in no acute distress HEENT: NC/AT, anicteric Lungs: CTAB, non-labored respirations Heart: RRR, no murmur Abdomen: soft, NT, ND Ext: no cyanosis, no peripheral edema Neuro: Alert, follows commands Medication: Medications: Continuous Medications -------- No continuous medications are active Scheduled Medications -------- 1. Allopurinol: 200 mg Oral Every 24 Hours 2. Atorvastatin: 10 mg Oral Daily 3. Fluticasone 50 microgram/ Nasal Inhalation: 1 spray(s) Each Nostril Daily 4. Hydrocortisone Na Succinate Injectable: 25 mg IntraVenous Push Every 12 Hours 5. Menthol 0.44% - Zinc Oxide 20.625% Topical: 1 application(s) Topical 3 Times a Day 6. Pantoprazole Injectable: 40 mg IntraVenous Push Every 24 Hours 7. Potassium Chloride 20 mEq/Sterile Water 100 mL Premix IVPB: 20 mEq IntraVenous Piggyback Every 2 Hours 8. Potassium Chloride Extended Release: 40 mEq Oral Every 12 Hours 9. Sevelamer Carbonate: 800 mg Oral 3 Times a Day With Meals 10. Warfarin: 2.5 mg Oral Daily PRN Medications -------- 1. Acetaminophen: 650 mg Oral Every 4 Hours 2. hydrALAZINE (APRESOLINE) Injectable: 5 mg IntraVenous Push Every 6 Hours 3. Magnesium Hydroxide -Al Hydrox -Simethicone Oral Liquid: 30 mL Oral Every 4 Hours 4. Morphine Injectable: 1 mg IntraVenous Push Every 4 Hours 5. Nitroglycerin SubLingual: 0.4 mg SubLingual Every 5 Minutes 6. Ondansetron Injectable: 4 mg IntraVenous Push Every 4 Hours Conditional Medication Orders -------- 1. Perflutren Lipid Microsphere (Activated) 1.3 mL / NaCL 0.9% T.V. 10 mL Injectable: 0.5 mL IntraVenous Push Once Currently Suspended Medications -------- 1. Fludrocortisone: 0.1 mg Oral Daily 2. Hydrocortisone: 10 mg Oral Daily 3. Hydrocortisone: 20 mg Oral Daily 1800 Recent Lab Results: Results: BMP: 05/06/2020 05:38 NA+ Cl- BUN / 141 100 62 H / -------- Glucose --- 100 H K+ HCO3- Creat \ 2.9 LL 32 2.15 H \ Calcium : 9.0 Anion Gap : 12 Assessment and Plan: Code Status: Code StatusDNAR with Added Limitations Assessment: LINDA PERALTA is a 75 year old Female w/ history s/f HTN, CAD, moris's disease, solitary kidney c/b RCC s/p partial nephrectomy, DVT/PE who was [facility], hypercalcemia and hypotension now transferred here. 1. ANGELA on CKD: previously hypotensive at [facility], now hypertensive, also CRS as pt is volume overloaded on exam vs. crystal induced (hypercalcemic, hyperphosphatemic, hyperuricemic), not on any nephrotoxic medications, not rhabdomyolysis (nml CK even though has high phos and uric acid), does have risk factors for CKD due to donating LT kidney hence has RT solitary kidney c/b RCC s/p RT partial nephrectomy 2. Hypercalcemia/hyperphosp hatemia: c/f hyperparathyroidism (primary or secondary though would expect low phos pt has low kidney function so decreasing phos clearance) vs. elevated Vit d 1,25 vs. paraproteinemia, has nml Vit D 33, PTH wnl 19 3. Hyperuricemia: has nml CK, unlikely related to TLS (has high phos but would also expect hyperkalemia though this could be affected w/ pt on florinef and likely hypocalcemia), not on thiazides, can be seen in sarcoidosis, hyperparathyroidism, hypothyroidism 4. HTN: could be due to medications (on florinef, hydrocortisone) or increased salt load from IVFs 5. Adrenal insufficiency: on florinef and hydrocortisone Plan: - encourage PO - continue allopurinol - stop lasix - PTHrp and Vit D 1,25 and SPEP pending - checking uric acid and phos tomorrow - if phos remains ok will stop binders and monitor levels - ok w/ K repletion, checking BMP at 5 PM to ensure not at risk for overcorrection as pt has low renal function currently - monitor BP, getting hypertensive Electronic Signatures: Leigh Billy) (Signed 06-May-2020 11:02) Authored: Service, Subjective Data, Objective Data, Assessment and Plan, Note Completion Last Updated: 06-May-2020 11:02 by Leigh Billy) Normal [facility] Daily Progress Note-Urologyo n 05-06-2020 Daily Progress Note-Urology Service: Urology Subjective Data: LINDA PERALTA is a 75 year old Female who is Hospital Day # 5. Urology progress note for 05/06/20 Patient seems more alert and generally feels better today Urine clear per Quan catheter Serum creatinine elevated but seems stable at current level Discharge planning apparently in progress possible transfer to rehabilitation Therefore we will proceed with a voiding trial currently, discontinue Quan catheter early tomorrow morning with a voiding trial and observe clinically Otherwise continue supportive care Additional medical and historical objective data reviewed and listed below Urology progress note for Monday05/05/20, Quan catheter in place draining yellow clear urine Today's sitting at the bedside, still feels weak somewhat lethargic Renal insufficiency persists serum creatinine 2.28 wBC count elevated at 19,900 Currently off antibiotics and observation as per infectious disease Still planning to wait for some reasonable improvement in overall medical status ambulation and mobility and then planning to remove Quan catheter for a voiding trial Otherwise continue supportive care Additional medical and historical objective data reviewed and listed below. Objective Data: Objective Information: T PRBPSpO2 Value36.63540100/8498% Date/Time05/06 13: 13: 13: 13: 13:40 Range(36.5C - 36.7C ) (71 - 82 ) (18 - 18 ) (132 - 162 )/ (83 - 96 ) (88% - 99% ) Pain reported at 05/06 11:17: 0 = None ---- [facility] and [facility] ----- [facility] 2:00 [id number] May 05, 2020 10:00 [id number] The Intake and Output Totals for the last 24 hours are: IntakeOutputNet [id number] T PRBPSpO2 Value36.79649162/8498% Date/Time05/06 13: 13: 13: 13: 13:40 Range(36.5C - 36.7C ) (71 - 82 ) (18 - 18 ) (132 - 162 )/ (83 - 96 ) (88% - 99% ) Pain reported at 05/06 11:17: 0 = None ---- [facility] and [facility] ----- [facility], [facility] 2:00 [id number] May 05, 2020 10:00 [id number] The Intake and Output Totals for the last 24 hours are: IntakeOutputNet [id number] ---Intake--- Enteral - Oral PO Fluid/Feed (oral): null mL IV Fluids IV Piggybacks: 50 mL IV Piggybacks: 50 mL ---Output--- Urine Indwelling Catheter - Urethral: 2600 mL Intake Output IV Fluids 50 mL Urine 2600 mL Medication: Medications: CARDIOVASCULAR AGENTS: 1. Nitroglycerin SubLingual: 0.4 mg SubLingual Every 5 Minutes PRN 2. hydrALAZINE (APRESOLINE) Injectable: 5 mg IntraVenous Push Every 6 Hours PRN CENTRAL NERVOUS SYSTEM AGENTS: 1. Acetaminophen: 650 mg Oral Every 4 Hours PRN 2. Morphine Injectable: 1 mg IntraVenous Push Every 4 Hours PRN 3. Ondansetron Injectable: 4 mg IntraVenous Push Every 4 Hours PRN COAGULATION MODIFIERS: 1. Warfarin: 2.5 mg Oral Daily GASTROINTESTINAL AGENTS: 1. Magnesium Hydroxide -Al Hydrox -Simethicone Oral Liquid: 30 mL Oral Every 4 Hours PRN 2. Pantoprazole Injectable: 40 mg IntraVenous Push Every 24 Hours HORMONES/HORMONE MODIFIERS: 1. Hydrocortisone Na Succinate Injectable: 25 mg IntraVenous Push Every 12 Hours METABOLIC AGENTS: 1. Allopurinol: 200 mg Oral Every 24 Hours 2. Atorvastatin: 10 mg Oral Daily MISCELLANEOUS AGENTS: 1. Sevelamer Carbonate: 800 mg Oral 3 Times a Day With Meals NUTRITIONAL PRODUCTS: 1. Potassium Chloride Extended Release: 40 mEq Oral Every 12 Hours TOPICAL AGENTS: 1. Menthol 0.44% - Zinc Oxide 20.625% Topical: 1 application(s) Topical 3 Times a Day 2. Fluticasone 50 microgram/ Nasal Inhalation: 1 spray(s) Each Nostril Daily Conditional Medication Orders -------- 1. Perflutren Lipid Microsphere (Activated) 1.3 mL / NaCL 0.9% T.V. 10 mL Injectable: 0.5 mL IntraVenous Push Once Currently Suspended Medications -------- 1. Fludrocortisone: 0.1 mg Oral Daily 2. Hydrocortisone: 10 mg Oral Daily 3. Hydrocortisone: 20 mg Oral Daily 1800 Recent Lab Results: Results: BMP: 05/06/2020 05:38 NA+ Cl- BUN / 141 100 62 H / -------- Glucose --- 100 H K+ HCO3- Creat \ 2.9 LL 32 2.15 H \ Calcium : 9.0 Anion Gap : 12 I have reviewed these laboratory results: Basic Metabolic Panel Trending View [id number] 05:38:00 05-May-2020 05:34:00 Lab Comment:Called- RB to Rogelio, 05/06/2020 06:54 Called- RB to Catherine Marroquin, 05/05/2020 06:47 Glucose, Hproo201 H 98 NA141 139 K2.9 LL 2.9 LL CL100 100 Bicarbonate, Serum32 31 Anion Gap, Serum12 11 BUN62 H 72 H CREAT2.15 H 2.28 H GFR-Non [id number] A 21 A GFR- Qrqvvpqh03 A 25 A Calcium, Serum9.0 9.1 Magnesium, Serum 06-May-2020 05:38:00 ResultValue Magnesium, Serum 1.80 Complete Blood Count 05-May-2020 05:35:00 ResultValue White Blood Cell Count 19.9 H Red Blood Cell Count 3.43 L HGB 10.2 L HCT 30.6 L MCV 89 MCHC 33.3 PLT 323 RDW-CV 15.6 H Parathormone Intact, Serum 05-May-2020 05:35:00 ResultValue Parathormone Intact, Serum 31.6 Radiology Results: Results: Impression: Mild compression deformities of several thoracic vertebral bodies without edema or retropulsion. There is no central canal stenosis in the thoracic region. Multilevel lumbar spondylosis as detailed. Extensive edema within the posterior paraspinous soft tissues particularly surrounding bilateral L4-L5 facets. Partially visualized edema within the presacral soft tissues, also noted on prior CT abdomen and pelvis. MRI T Spine without Contrast [May 04 2020 1:47PM] Impression: Mild compression deformities of several thoracic vertebral bodies without edema or retropulsion. There is no central canal stenosis in the thoracic region. Multilevel lumbar spondylosis as detailed. Extensive edema within the posterior paraspinous soft tissues particularly surrounding bilateral L4-L5 facets. Partially visualized edema within the presacral soft tissues, also noted on prior CT abdomen and pelvis. MRI L Spine without Contrast [May 04 2020 1:47PM] Impression: 1 to 15% stenosis right internal carotid artery. 1 to 15% stenosis left internal carotid artery. Blood flow is antegrade in the right vertebral artery. Blood flow is antegrade in the left vertebral artery. If clinically indicated we could repeat the study in 1 year. Ultrasound Carotid Bilateral Duplex [May 03 2020 8:00PM] Impression: Chest 1. Small to moderate left pleural effusion and small right pleural effusion with mild right consolidative opacities. Age-indeterminate wedge compression deformity of the T10 vertebral body with less than 25% height loss. 2. Limited evaluation without the administration of intravenous contrast. Abdomen-Pelvis 1. Solitary right kidney with a nonspecific hypodensity and calcified lesion as seen on prior ultrasound, not fully evaluated on the current noncontrast exam. Contrast a cross-sectional imaging is recommended for evaluation when clinically appropriate. 2. Mild presacral and lateral body wall soft tissue edema, correlate with volume status. 3. Air in the urinary bladder, correlate with recent intervention or correlate with urinalysis if there is concern for infection. 4. Additional findings as above. CT Chest Abdomen Pelvis without Contrast [May 03 2020 10:24AM] Impression: CT Abdomen and Pelvis without Contrast [May 02 2020 4:41PM] Impression: 1. Lower lung airspace disease greater on the left. Xray Chest 2 View PA + Lateral [May 02 2020 1:50PM] Impression: No evidence of hydronephrosis. Nonobstructing calculus at the upper pole. Complex cyst with calcification given hypodensity at the level of the renal hilum for which nonemergent CT would be recommended for further evaluation. Ultrasound Renal Bilateral [May 02 2020 12:57PM] Assessment and Plan: Admitting Dx: Hypercalcemia: Entered Date: 02-May-2020 02:09 Additional Dx: Change in mental status: Onset Date: 04-May-2020, Entered Date: 04-May-2020 11:21 Code Status: Code StatusDNAR with Added Limitations Electronic Signatures: Alvin Sawyer) (Signed 06-May-2020 16:21) Authored: Service, Subjective Data, Objective Data, Assessment and Plan, Note Completion Last Updated: 06-May-2020 16:21 by Alvin Sawyer) [facility] Discharge [id number] 03-17-2 021 Discharge Profile2 Discharge Orders: Anticipated Discharge Date: Anticipated Discharge [id number] DNAR: DNAR Status: DNAR Was Extending the DNAR Status Following Discharge Discussed w/ Patient/Family: yes What was the Result of the Discussion: patient wishes to have DNAR extended [place] DNR State Form Complete: yes [place] DNR State Form Status: DNR Comfort Care Arrest Activity: activity as tolerated. Diet: Dietregular Labs 1: Lab Test(s)CBC, Comprehensive Metabolic Panel Date To Be Drawn1 week Lab InstructionsWalk-in lab, no appointment required. Hospital Course (Home Care/Gold Form): Hospital Course: Hospital Course: include significant abnormal lab values LINDA PERALTA is a 75 year old Female who was transferred to this hospital for endocrine evaluation. PT is a poor historian and there were few usable records transferred from OSH, the history is limited as such. Per the patient on 04/22 she was admitted to the hospital for hypercalcemia. according to her she has had multiple interventions but they have been unsuccessful at correcting it. On admission the patient had acute kidney injury which was improving with volume resuscitation. decision made to transfer pt here for subspecialty evaluation. Dr Gregory reportedly agreed to consult. Pt had a UTI at the outside hospital- culture grew citrobacter, pt was put on antibiotic- unclear when course completed The patient has no current complaints other than fatigue and wanting to be out of the hospital. On admission she is found to have acute kidney injury, hypercalcemia, hypokalemia. Also found to have urinary tract infection potentially aspiration pneumonia. She was started on meropenem. Infectious disease, nephrology, endocrinology were consulted. Patient was started on Lasix due to fluid overload. There was correction of electrolytes. Patient slowly improved, however leukocytes were still elevated. Patient completed meropenem for UTI/aspiration pneumonia, antibiotics were discontinued. Leukocytes were trended down with no febrile episodes. Patient's mentation improved significantly, tolerated physical therapy and 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 Therapy, and was recommended acute rehabilitation on discharge. Patient was discharged in stable condition, advised follow-up with nephrology as an outpatient. Discharge time 40 minutes. Gold Form Orders: Care Recommendation: I recommend that INPATIENT care is required at:Acute rehab Estimated StayConvalescent stay < 30 days PrognosisGood Rehab Potential/FunctionImprov e Provider CertificationI certify that inpatient care is required at the level recommended above. To the best of my knowledge, all information provided about the individual is a true and accurate reflection of the individual's condition. Therapy Orders: 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 Therapy OrdersEval and Treat ([facility]) Physical Therapy OrdersEval and Treat ([facility]) Provider Follow Up: Physician To Follow at Skilled/RehabAttending Physician at Skilled/Rehab Provider FINAL REVIEW of Orders: Final Review: Final Review of Medication Reconciliation and Orders Completedby Physician Reviewing ProviderJames Tamesis, MD at 08-May-2020 15:33:30 Appointments: Follow-Up Appointment 01: Physician/Dept/Jocelin Gregory MD / Endocrinology [facility] Reason for Referralhosp dc fu Scheduled Date/[id number] 15:00 [id number] [place] [address] CommentsPlease wear a mask when entering the building. Please bring discharge papers, a list of all medications, insurance card photo id. Please call the office if unable to keep this appointment. Electronic Signatures: Bernardino Valentino (PT ACC REP) (Signed 06-May-2020 13:18) Authored: Discharge Orders, Appointments, Gold Form - Trademark Attorney Summary Baldo [place]) (Signed 08-May-2020 15:33) Authored: Discharge Orders, Hospital Course (Home Care/Gold Form), Gold Form Orders, Provider FINAL REVIEW of Orders Last Updated: 08-May-2020 15:33 by Baldo South) Normal [facility] EMR ADDONon 05-06-2020 ADDON CONFIRMATION REQUEST REC'D Normal [facility] Comment on above: Performed By: #### C MP #### [address] [id number] MAGNESIUMon 05-06-2020 Magnesium [Mass/Vol] 1.80 mg/dL Normal 1.60 - 2.40 [facility] Comment on above: Performed By: #### C A #### [address] [id number] VITAMIN D 1,25-DIHYDROXYon 0 05-06-2020 VITAMIN D 1,25-DIHYDROXY 34.3 pg/mL Normal 19.9-79.3 [facility] Comment on above: Result Comment: INTE RPRETIVE INFORMATION: Vitamin D, 1,25-Dihydroxy This test is primarily indicated during patient evaluation for hypercalcemia and renal failure. A normal result does not rule out Vitamin D deficiency. The recommended test for diagnosing Vitamin D deficiency is Vitamin D 25-hydroxy. Performed By: [facility] [address] [place] [id number] Blood Bank Order Control Clerk: Eliza Fuller MD Performed By: #### V TDDI #### [facility] [address] [place] [address] BASIC METABOLIC PANELon 04-20 Anion gap [Moles/Vol] 11 mmol/L Normal 10 - 20 [facility] Comment on above: Order Comment: TEST CALCIUM WAS CANCELLED, 05/02/2020 12:20 added per RN 05/02/2020 12:20. Performed By: #### C A #### [address] [id number] Calcium [Mass/Vol] 9.1 mg/dL Normal 8.6 - 10.3 [facility] Comment on above: Order Comment: TEST CALCIUM WAS CANCELLED, 05/02/2020 12:20 added per RN 05/02/2020 12:20. Performed By: #### C A #### [address] [id number] Chloride [Moles/Vol] 100 mmol/L Normal 98 - 107 [facility] Comment on above: Order Comment: TEST CALCIUM WAS CANCELLED, 05/02/2020 12:20 added per RN 05/02/2020 12:20. Performed By: #### C A #### [address] [id number] Creatinine [Mass/Vol] 2.28 mg/dL High 0.50 - 1.05 [facility] Comment on above: Order Comment: TEST CALCIUM WAS CANCELLED, 05/02/2020 12:20 added per RN 05/02/2020 12:20. Performed By: #### C A #### [address] [id number] GFR- AM. 25 mL/min/1.73m2 Abnormal >60 [facility] Comment on above: Order Comment: TEST CALCIUM WAS CANCELLED, 05/02/2020 12:20 added per RN 05/02/2020 12:20. Result Comment: CALC ULATIONS OF ESTIMATED GFR ARE PERFORMED USING THE MDRD STUDY EQUATION FOR THE IDMS-TRACEABLE CREATININE METHODS. CLIN CHEM 2007;53:766-72 Performed By: #### C A #### [address] [id number] GFR-NON AM. 21 mL/min/1.73m2 Abnormal >60 [facility] Comment on above: Order Comment: TEST CALCIUM WAS CANCELLED, 05/02/2020 12:20 added per RN 05/02/2020 12:20. Performed By: #### C A #### [address] [id number] Glucose [Mass/Vol] 98 mg/dL Normal 74 - 99 [facility] Comment on above: Order Comment: TEST CALCIUM WAS CANCELLED, 05/02/2020 12:20 added per RN 05/02/2020 12:20. Performed By: #### C A #### [address] [id number] HCO3 (Bld) [Moles/Vol] 31 mmol/L Normal 21 - 32 [facility] Comment on above: Order Comment: TEST CALCIUM WAS CANCELLED, 05/02/2020 12:20 added per RN 05/02/2020 12:20. Performed By: #### C A #### [address] [id number] Potassium [Moles/Vol] 2.9 mmol/L Critically low 3.5 - 5.3 [facility] Comment on above: Order Comment: TEST CALCIUM WAS CANCELLED, 05/02/2020 12:20 added per RN 05/02/2020 12:20. Result Comment: Call ed- RB to Catherine Marroquin, 05/05/2020 06:47 Performed By: #### C A #### [address] [id number] Sodium [Moles/Vol] 139 mmol/L Normal 136 - 145 [facility] Comment on above: Order Comment: TEST CALCIUM WAS CANCELLED, 05/02/2020 12:20 added per RN 05/02/2020 12:20. Performed By: #### C A #### [address] [id number] Urea nitrogen [Mass/Vol] 72 mg/dL High 6 - 23 [facility] Comment on above: Order Comment: TEST CALCIUM WAS CANCELLED, 05/02/2020 12:20 added per RN 05/02/2020 12:20. Performed By: #### C A #### [address] [id number] CBCon 05-05-2020 Erythrocyte distribution width (RBC) [Ratio] 15.6 % High 11.5 - 14.5 [facility] Comment on above: Performed By: #### C BC ####[address] [id number] Hematocrit (Bld) [Volume fraction] 30.6 % Low 36.0 - 46.0 [facility] Comment on above: Performed By: #### C BC ####[address] [id number] Hemoglobin (Bld) [Mass/Vol] 10.2 g/dL Low 12.0 - 16.0 [facility] Comment on above: Performed By: #### C BC ####[address] [id number] MCHC (RBC) [Mass/Vol] 33.3 g/dL Normal 32.0 - 36.0 [facility] Comment on above: Performed By: #### C BC ####[address] [id number] MCV (RBC) [Entitic vol] 89 fL Normal 80 - 100 [facility] Comment on above: Performed By: #### C BC ####[address] [id number] Platelets (Bld) [#/Vol] 323 10*3/uL Normal 150 - 450 [facility] Comment on above: Performed By: #### C BC ####[address] [id number] RBC (Bld) [#/Vol] 3.43 x10E12/L Low 4.00 - 5.20 [facility] Comment on above: Performed By: #### C BC ####[facility] [place], [place] [id number] WBC (Bld) [#/Vol] 19.9 10*3/uL High 4.4 - 11.3 [facility] Comment on above: Performed By: #### C BC ####[facility] [place], [place] [id number] Consult-Orthopaedicson 05-05 Consult-Orthopaedics Service: Service: Orthopaedics History of Present Illness: HPI: LINDA PERALTA is a 75 year old Female ongoing mechanical back pain. Patient was admitted after frequent falls. Patient seen and evaluated for frequent falls and low mechanical back pain. Medical work-up is in progress for fluid overload and possible urosepsis Patient's past medical history, allergies, surgical history, review of systems, family history, social history, medication list are all reviewed and documented on the chart. On exam. Normocephalic atraumatic head, heart regular rate and rhythm, lungs are clear, abdominal exam is nontender nondistended. Extremity exam patient can move both foot and ankles and toes without significant problems. Patient has no pain for hip rotation flexion extension abduction. There is mild pain and discomfort around the low back. The patient is able to ambulate and weight-bear. X-rays are relatively unremarkable. MRI thoracic lumbar spine does show some minimal compression fractures of T6 and 10. There are some L4-5 fluid in the facet joint but not pushing on the cord. There is not appear to be any cord compromise with related to neural stenosis or outlet. MRI will be reviewed by Dr. Glynn our customer sales specialist. The patient is anticoagulated with Coumadin. Impression low mechanical back pain, mild compression plate fractures of T6 and 10. Mild fluid inflammation around the facet of L4-5. Plan. Patient will be watched after therapy tomorrow and ambulate. We will continue to monitor the patient's progress. At this time we do not anticipate any intervention or need for needling or aspiration of fluid around the L4-5 facet as it is extradural and there does not appear to be any involvement of the cord. Patient will remain on her Coumadin. Allergies: ciprofloxacin: Rash penicillins: Rash Electronic Signatures: Javier Hathaway) (Signed 05-May-2020 18:14) Authored: Service, History of Present Illness, Allergies, Note Completion Last Updated: 05-May-2020 18:14 by Javier Hathaway) [facility] Daily Progress Note-Endocrin ologyon 05-05-2020 Daily Progress Note-Endocrinology Service: Endocrinology Subjective Data: LINDA PERALTA is a 75 year old Female who is Hospital Day # 4. Additional Information: Doing well she feels she has improved c/o lot of weakness all over Objective Data: Objective Information: T PRBPSpO2 Value36.083146/8395% Date/Time05/05 19: 19: 19: 19:19 Range(36.2C - 36.5C ) (73 - 83 ) (136 - 148 )/ (82 - 88 ) (94% - 98% ) Pain reported at 05/05 9:49: 0 = None ---- Intake and Output ----- Mn/Dy/Year TimeIntakeOutputNet May 05, 2020 2:00 [id number] May 05, 2020 6:00 [id number] May 04, 2020 10:00 [id number] The Intake and Output Totals for the last 24 hours are: IntakeOutputNet [id number] Physical Exam by System: Constitutional: Well developed, awake/alert Medication: Medications: Continuous Medications -------- No continuous medications are active Scheduled Medications -------- 1. Allopurinol: 200 mg Oral Every 24 Hours 2. Atorvastatin: 10 mg Oral Daily 3. Fluticasone 50 microgram/ Nasal Inhalation: 1 spray(s) Each Nostril Daily 4. Furosemide Injectable: 40 mg IntraVenous Push Daily 5. Hydrocortisone Na Succinate Injectable: 25 mg IntraVenous Push Every 12 Hours 6. Menthol 0.44% - Zinc Oxide 20.625% Topical: 1 application(s) Topical 3 Times a Day 7. Pantoprazole Injectable: 40 mg IntraVenous Push Every 24 Hours 8. Potassium Chloride Extended Release: 40 mEq Oral Every 12 Hours 9. Sevelamer Carbonate: 800 mg Oral 3 Times a Day With Meals 10. Warfarin: 2.5 mg Oral Daily PRN Medications -------- 1. Acetaminophen: 650 mg Oral Every 4 Hours 2. hydrALAZINE (APRESOLINE) Injectable: 5 mg IntraVenous Push Every 6 Hours 3. Magnesium Hydroxide -Al Hydrox -Simethicone Oral Liquid: 30 mL Oral Every 4 Hours 4. Morphine Injectable: 1 mg IntraVenous Push Every 4 Hours 5. Nitroglycerin SubLingual: 0.4 mg SubLingual Every 5 Minutes 6. Ondansetron Injectable: 4 mg IntraVenous Push Every 4 Hours Conditional Medication Orders -------- 1. Perflutren Lipid Microsphere (Activated) 1.3 mL / NaCL 0.9% T.V. 10 mL Injectable: 0.5 mL IntraVenous Push Once Currently Suspended Medications -------- 1. Fludrocortisone: 0.1 mg Oral Daily 2. Hydrocortisone: 10 mg Oral Daily 3. Hydrocortisone: 20 mg Oral Daily 1800 Recent Lab Results: Results: CBC: 05/05/2020 05:35 \ Hgb / \ 10.2 L / WBC Plt 19.9 H 323 / Hct \ / 30.6 L \ RBC: 3.43 L MCV: 89 BMP: 05/05/2020 05:34 NA+ Cl- BUN / 139 100 72 H / -------- Glucose --- 98 K+ HCO3- Creat \ 2.9 LL 31 2.28 H \ Calcium : 9.1 Anion Gap : 11 Coagulation: 05/05/2020 05:34 PT / 23.6 H / -------< INR < 2.0 H PTT\ \ I have reviewed these laboratory results: Parathormone Intact, Serum 05-May-2020 05:35:00 ResultValue Parathormone Intact, Serum 31.6 Basic Metabolic Panel Trending View [id number] 05:34:00 04-May-2020 05:26:00 Lab Comment:Called- RB to Catherine Marroquin, 05/05/2020 06:47 Glucose, Serum98 90 NA139 137 K2.9 LL 3.6 CL100 101 Bicarbonate, Serum31 27 Anion Gap, Serum11 13 BUN72 H 79 H CREAT2.28 H 2.39 H GFR-Non [id number] A 20 A GFR- [id number] A 24 A Calcium, Serum9.1 9.8 Uric Acid, Serum 05-May-2020 05:34:00 ResultValue Uric Acid, Serum 9.7 H Phosphorus, Serum 05-May-2020 05:34:00 ResultValue Phosphorus, Serum 4.8 Complete Blood Count 04-May-2020 05:26:00 ResultValue White Blood Cell Count 22.3 H Red Blood Cell Count 3.82 L HGB 11.2 L HCT 34.4 L MCV 90 MCHC 32.6 PLT 382 RDW-CV 15.9 H Assessment and Plan: Code Status: Code StatusDNAR with Added Limitations Impression 1: Hypercalcemia Plan for Impression 1: Resolved repeat PTH CALCIUM PHOS -- all normal Impression 2: Adrenal insufficiency Plan for Impression 2: on Hydrocortisone 25 mg iv twice a day off Florinef doing well Electronic Signatures: Alexander Gregory) (Signed 05-May-2020 21:57) Authored: Service, Subjective Data, Objective Data, Assessment and Plan, Note Completion Last Updated: 05-May-2020 21:57 by Alexander Gregory) Normal [facility] Daily Progress Note-General Internal Medicineon 05-05-2020 Daily Progress Note-General Internal Medicine Service: General Internal Medicine Subjective Data: LINDA PERALTA is a 75 year old Female who is Hospital Day # 4. Seen and examined, denies any fever, chills, chest pain, shortness of breath. Still with lower extremity weakness. Anticipating working with PT OT today. Rest of the ROS is negative. Objective Data: Objective Information: T PRBPSpO2 Value36.86497723/8398% Date/Time05/05 7: 7: 14: 7: 7:22 Range(36.2C - 36.3C ) (75 - 83 ) (18 - 18 ) (135 - 148 )/ (83 - 88 ) (93% - 98% ) Pain reported at 05/05 9:49: 0 = None ---- Intake and Output ----- Mn/Dy/Year TimeIntakeOutputNet May 05, 2020 2:00 [id number] May 05, 2020 6:00 [id number] May 04, 2020 10:00 [id number] The Intake and Output Totals for the last 24 hours are: IntakeOutputNet [id number] Physical Exam by System: Constitutional: Well developed, awake/alert/oriented x3, no distress, alert and cooperative Respiratory/Thorax: Diminished in the bases no wheezing Cardiovascular: normal S 1and S 2 Gastrointestinal: Positive bowel sounds soft, suprapubic tenderness Musculoskeletal: ROM intact, no joint swelling, normal strength Extremities: +1-2 edema upper and lower extremity Neurological: alert and oriented x3, intact senses, motor, normal strength Psychological: Appropriate mood and behavior Medication: Medications: Continuous Medications -------- No continuous medications are active Scheduled Medications -------- 1. Allopurinol: 200 mg Oral Every 24 Hours 2. Atorvastatin: 10 mg Oral Daily 3. Fluticasone 50 microgram/ Nasal Inhalation: 1 spray(s) Each Nostril Daily 4. Furosemide Injectable: 40 mg IntraVenous Push Daily 5. Hydrocortisone Na Succinate Injectable: 25 mg IntraVenous Push Every 12 Hours 6. Menthol 0.44% - Zinc Oxide 20.625% Topical: 1 application(s) Topical 3 Times a Day 7. Pantoprazole Injectable: 40 mg IntraVenous Push Every 24 Hours 8. Potassium Chloride Extended Release: 40 mEq Oral Every 12 Hours 9. Sevelamer Carbonate: 800 mg Oral 3 Times a Day With Meals 10. Warfarin: 2.5 mg Oral Daily PRN Medications -------- 1. Acetaminophen: 650 mg Oral Every 4 Hours 2. hydrALAZINE (APRESOLINE) Injectable: 5 mg IntraVenous Push Every 6 Hours 3. Magnesium Hydroxide -Al Hydrox -Simethicone Oral Liquid: 30 mL Oral Every 4 Hours 4. Morphine Injectable: 1 mg IntraVenous Push Every 4 Hours 5. Nitroglycerin SubLingual: 0.4 mg SubLingual Every 5 Minutes 6. Ondansetron Injectable: 4 mg IntraVenous Push Every 4 Hours Conditional Medication Orders -------- 1. Perflutren Lipid Microsphere (Activated) 1.3 mL / NaCL 0.9% T.V. 10 mL Injectable: 0.5 mL IntraVenous Push Once Currently Suspended Medications -------- 1. Fludrocortisone: 0.1 mg Oral Daily 2. Hydrocortisone: 10 mg Oral Daily 3. Hydrocortisone: 20 mg Oral Daily 1800 Recent Lab Results: Results: CBC: 05/05/2020 05:35 \ Hgb / \ 10.2 L / WBC Plt 19.9 H 323 / Hct \ / 30.6 L \ RBC: 3.43 L MCV: 89 BMP: 05/05/2020 05:34 NA+ Cl- BUN / 139 100 72 H / -------- Glucose --- 98 K+ HCO3- Creat \ 2.9 LL 31 2.28 H \ Calcium : 9.1 Anion Gap : 11 Coagulation: 05/05/2020 05:34 PT / 23.6 H / -------< INR < 2.0 H PTT\ \ Radiology Results: Results: Impression: 1 to 15% stenosis right internal carotid artery. 1 to 15% stenosis left internal carotid artery. Blood flow is antegrade in the right vertebral artery. Blood flow is antegrade in the left vertebral artery. If clinically indicated we could repeat the study in 1 year. Ultrasound Carotid Bilateral Duplex [May 03 2020 8:00PM] Impression: Chest 1. Small to moderate left pleural effusion and small right pleural effusion with mild right consolidative opacities. Age-indeterminate wedge compression deformity of the T10 vertebral body with less than 25% height loss. 2. Limited evaluation without the administration of intravenous contrast. Abdomen-Pelvis 1. Solitary right kidney with a nonspecific hypodensity and calcified lesion as seen on prior ultrasound, not fully evaluated on the current noncontrast exam. Contrast a cross-sectional imaging is recommended for evaluation when clinically appropriate. 2. Mild presacral and lateral body wall soft tissue edema, correlate with volume status. 3. Air in the urinary bladder, correlate with recent intervention or correlate with urinalysis if there is concern for infection. 4. Additional findings as above. CT Chest Abdomen Pelvis without Contrast [May 03 2020 10:24AM] Assessment and Plan: Code Status: Code StatusDNAR with Added Limitations Impression 1: Acute kidney injury/hypercalcemia/hyp eruricemia/hypokalemia Plan for Impression 1: Endocrinology and nephrology following Replaced potassium today, likely aggravated by Lasix Continue current level of care Impression 2: Acute diastolic CHF/bilateral pleural effusion/anasarca Plan for Impression 2: Diuresing well Continue IV Lasix Impression 3: Adrenal insufficiency on chronic hydrocortisone Plan for Impression 3: With reported nausea vomiting today we will switch to IV hydrocortisone Impression 4: Metabolic encephalopathy, multifactorial related to ANGELA versus infectious etiology Plan for Impression 4: Work-up so far negative Seen by infectious disease, off antibiotics currently Appears alert and oriented today Impression 5: Pneumonia/leukocytosis Plan for Impression 5: Persistent leukocytosis Seen by infectious disease, discontinued IV antibiotics Advised observation for now Impression 6: History of DVT/PE Plan for Impression 6: IVC filter seen on imaging studies, on Coumadin INR therapeutic, check INR daily Impression 7: Acute urinary retention/back pain/bilateral leg weakness Plan for Impression 7: MRI of the lumbar and thoracic region did not show any acute cord compression There is evidence of, nonspecific, likely related to fluid overload state Urology following Electronic Signatures: Baldo South) (Signed 05-May-2020 14:08) Authored: Service, Subjective Data, Objective Data, Assessment and Plan, Note Completion Last Updated: 05-May-2020 14:08 by Baldo South) [facility] Daily Progress Note-Infectio us Diseaseon 05-05-2020 Daily Progress Note-Infectious Disease Service: Infectious Disease History of Present Illness: History Present Illness: HPI: Possible aspiration pneumonia Recent UTI with Citrobacter No fevers chills sweats minimal cold Subjective Data: LINDA PERALTA is a 75 year old Female who is Hospital Day # 4. Objective Data: Objective Information: T PRBPSpO2 [id number]/8398% Date/Time05/05 7: 7: 14: 7: 7:22 Range(36.2C - 36.3C ) (75 - 83 ) (18 - 18 ) (135 - 148 )/ (83 - 88 ) (93% - 98% ) Pain reported at 05/05 9:49: 0 = None ---- Intake and Output ----- Mn/Dy/Year TimeIntakeOutputNet May 05, 2020 6:00 [id number] May 04, 2020 10:00 [id number] May 04, 2020 2:00 [id number] The Intake and Output Totals for the last 24 hours are: IntakeOutputNet [id number] T PRBPSpO2 [id number]/8398% Date/Time05/05 7: 7: 14:: 7:22 Range(36.2C - 36.3C ) (75 - 83 ) (18 - 18 ) (135 - 148 )/ (83 - 88 ) (93% - 98% ) Physical Exam by System: Constitutional: Well developed, awake/alert/oriented x3, no distress, alert and cooperative Head/Neck: Neck supple, no apparent injury, thyroid without mass or tenderness, No JVD, trachea midline, no bruits Respiratory/Thorax: Patent airways, CTAB, normal breath sounds with good chest expansion, thorax symmetric Cardiovascular: Regular, rate and rhythm, no murmurs, 2+ equal pulses of the extremities, normal S 1and S 2 Gastrointestinal: Nondistended, soft, non-tender, no rebound tenderness or guarding, no masses palpable, no organomegaly, +BS, no bruits Musculoskeletal: ROM intact, no joint swelling, normal strength Medication: Medications: CARDIOVASCULAR AGENTS: 1. Nitroglycerin SubLingual: 0.4 mg SubLingual Every 5 Minutes PRN 2. Furosemide Injectable: 40 mg IntraVenous Push Daily 3. hydrALAZINE (APRESOLINE) Injectable: 5 mg IntraVenous Push Every 6 Hours PRN CENTRAL NERVOUS SYSTEM AGENTS: 1. Acetaminophen: 650 mg Oral Every 4 Hours PRN 2. Morphine Injectable: 1 mg IntraVenous Push Every 4 Hours PRN 3. Ondansetron Injectable: 4 mg IntraVenous Push Every 4 Hours PRN COAGULATION MODIFIERS: 1. Warfarin: 2.5 mg Oral Daily GASTROINTESTINAL AGENTS: 1. Magnesium Hydroxide -Al Hydrox -Simethicone Oral Liquid: 30 mL Oral Every 4 Hours PRN 2. Pantoprazole Injectable: 40 mg IntraVenous Push Every 24 Hours HORMONES/HORMONE MODIFIERS: 1. Hydrocortisone Na Succinate Injectable: 25 mg IntraVenous Push Every 12 Hours METABOLIC AGENTS: 1. Allopurinol: 200 mg Oral Every 24 Hours 2. Atorvastatin: 10 mg Oral Daily MISCELLANEOUS AGENTS: 1. Sevelamer Carbonate: 800 mg Oral 3 Times a Day With Meals NUTRITIONAL PRODUCTS: 1. Potassium Chloride Extended Release: 40 mEq Oral Every 12 Hours TOPICAL AGENTS: 1. Menthol 0.44% - Zinc Oxide 20.625% Topical: 1 application(s) Topical 3 Times a Day 2. Fluticasone 50 microgram/ Nasal Inhalation: 1 spray(s) Each Nostril Daily Conditional Medication Orders -------- 1. Perflutren Lipid Microsphere (Activated) 1.3 mL / NaCL 0.9% T.V. 10 mL Injectable: 0.5 mL IntraVenous Push Once Currently Suspended Medications -------- 1. Fludrocortisone: 0.1 mg Oral Daily 2. Hydrocortisone: 10 mg Oral Daily 3. Hydrocortisone: 20 mg Oral Daily 1800 Recent Lab Results: Results: I have reviewed these laboratory results: Complete Blood Count Trending View [id number] 05:35:00 04-May-2020 05:26:00 White Blood Cell Count19.9 H 22.3 H Red Blood Cell Count3.43 L 3.82 L HGB10.2 L 11.2 L HCT30.6 L 34.4 L MCV89 90 MCHC33.3 32.6 CRN588 382 RDW-CV15.6 H 15.9 H Parathormone Intact, Serum 05-May-2020 05:35:00 ResultValue Parathormone Intact, Serum 31.6 Basic Metabolic Panel Trending View [id number] 05:34:00 04-May-2020 05:26:00 Lab Comment:Called- RB to Catherine Marroquin, 05/05/2020 06:47 Glucose, Serum98 90 NA139 137 K2.9 LL 3.6 CL100 101 Bicarbonate, Serum31 27 Anion Gap, Serum11 13 BUN72 H 79 H CREAT2.28 H 2.39 H GFR-Non [id number] A 20 A GFR- Bwemxzmq61 A 24 A Calcium, Serum9.1 9.8 PT + INR, Plasma Trending View [id number] 05:34:00 04-May-2020 05:26:00 Prothrombin Time, Hinzpq51.6 H 27.5 H International Normalized Ratio, Plasma2.0 H 2.3 H Uric Acid, Serum 05-May-2020 05:34:00 ResultValue Uric Acid, Serum 9.7 H Phosphorus, Serum 05-May-2020 05:34:00 ResultValue Phosphorus, Serum 4.8 Radiology Results: Results: Impression: Mild compression deformities of several thoracic vertebral bodies without edema or retropulsion. There is no central canal stenosis in the thoracic region. Multilevel lumbar spondylosis as detailed. Extensive edema within the posterior paraspinous soft tissues particularly surrounding bilateral L4-L5 facets. Partially visualized edema within the presacral soft tissues, also noted on prior CT abdomen and pelvis. MRI T Spine without Contrast [May 04 2020 1:47PM] Impression: Mild compression deformities of several thoracic vertebral bodies without edema or retropulsion. There is no central canal stenosis in the thoracic region. Multilevel lumbar spondylosis as detailed. Extensive edema within the posterior paraspinous soft tissues particularly surrounding bilateral L4-L5 facets. Partially visualized edema within the presacral soft tissues, also noted on prior CT abdomen and pelvis. MRI L Spine without Contrast [May 04 2020 1:47PM] Impression: 1 to 15% stenosis right internal carotid artery. 1 to 15% stenosis left internal carotid artery. Blood flow is antegrade in the right vertebral artery. Blood flow is antegrade in the left vertebral artery. If clinically indicated we could repeat the study in 1 year. Ultrasound Carotid Bilateral Duplex [May 03 2020 8:00PM] Impression: Chest 1. Small to moderate left pleural effusion and small right pleural effusion with mild right consolidative opacities. Age-indeterminate wedge compression deformity of the T10 vertebral body with less than 25% height loss. 2. Limited evaluation without the administration of intravenous contrast. Abdomen-Pelvis 1. Solitary right kidney with a nonspecific hypodensity and calcified lesion as seen on prior ultrasound, not fully evaluated on the current noncontrast exam. Contrast a cross-sectional imaging is recommended for evaluation when clinically appropriate. 2. Mild presacral and lateral body wall soft tissue edema, correlate with volume status. 3. Air in the urinary bladder, correlate with recent intervention or correlate with urinalysis if there is concern for infection. 4. Additional findings as above. CT Chest Abdomen Pelvis without Contrast [May 03 2020 10:24AM] Impression: CT Abdomen and Pelvis without Contrast [May 02 2020 4:41PM] Impression: 1. Lower lung airspace disease greater on the left. Xray Chest 2 View PA + Lateral [May 02 2020 1:50PM] Conclusion: CONCLUSIONS: 1. The left ventricular systolic function is normal with a 60-65% estimated ejection fraction. 2. Spectral Doppler shows an impaired relaxation pattern of left ventricular diastolic filling. 3. Mild aortic valve stenosis. 4. There is moderate aortic valve cusp calcification. 5. Mild to moderately elevated pulmonary artery pressure. QUANTITATIVE DATA SUMMARY: 2D MEASUREMENTS: Normal Ranges: Ao Root d: 2.70 cm (2.0-3.7cm) LAs: 3.20 cm (2.7-4.0cm) IVSd: 1.44 cm (0.6-1.1cm) LVPWd: 1.34 cm (0.6-1.1cm) LVIDd: 2.51 cm (3.9-5.9cm) LVIDs: 1.97 cm LV Mass Index: 61.5 g/m2 LV % FS 21.5 % LA VOLUME: Normal Ranges: LA Volume Index: 32.1 ml/m2 RA VOLUME BY A/L METHOD: Normal Ranges: RA Vol A4C: 45.7 ml (8.3-19.5ml) RA Vol Index A4C: 25.4 ml/m2 RA Area A4C: 16.4 cm2 RA Major [place] A4C: 5.0 cm M-MODE MEASUREMENTS: Normal Ranges: Ao Root: 3.00 cm (2.0-3.7cm) AoV Exc: 1.20 cm (1.5-2.5cm) LAs: 3.00 cm (2.7-4.0cm) AORTA MEASUREMENTS: Normal Ranges: AoV Exc: 1.20 cm (1.5-2.5cm) LV SYSTOLIC FUNCTION BY 2D PLANIMETRY (MOD): Normal Ranges: EF-A4C View: 56.0 % (>55%) EF-A2C View: 57.4 % EF-Biplane: 55.9 % LV DIASTOLIC FUNCTION: Normal Ranges: MV Peak E: 0.65 m/s (0.7-1.2 m/s) MV Peak A: 1.32 m/s (0.42-0.7 m/s) E/A Ratio: 0.49 (1.0-2.2) MV e' 0.07 m/s (>8.0) MV lateral e' 0.06 m/s MV medial e' 0.07 m/s E/e' Ratio: 9.29 (<8.0) a' 0.12 m/s MITRAL VALVE: Normal Ranges: MV Vmax: 0.58 m/s (<1.3m/s) MV peak P.3 mmHg (<5mmHg) MV DT: 232 msec (150-240msec) AORTIC VALVE: Normal Ranges: AoV Mean P.0 mmHg (1.7-11.5mmHg) LVOT Max Tegan: 1.09 m/s (<1.1m/s) AoV VTI: 34.40 cm (18-25cm) LVOT VTI: 22.80 cm LVOT Diameter: 1.70 cm (1.8-2.4cm) AoV Area, VTI: 1.50 cm2 (2.5-5.5cm2) AoV Dimensionless Index: 0.66 RIGHT VENTRICLE: RV 1 3.7 cm RV 2 2.8 cm RV 3 6.3 cm TAPSE: 18.7 mm RV s' 0.24 m/s TRICUSPID VALVE/RVSP: Normal Ranges: Peak TR Velocity: 3.09 m/s RV Syst Pressure: 41.2 mmHg (< 30mmHg) IVC Diam: 1.40 cm PULMONIC VALVE: Normal Ranges: PV Accel Time: 95 msec (>120ms) PV Max Tegan: 1.2 m/s (0.6-0.9m/s) PV Max P.2 mmHg [id number] Tremayne Mcleod MD Electronically signed on 05/02/2020 at 1:08:29 PM Final Echocardiogram [May 02 2020 1:08PM] Impression: No evidence of hydronephrosis. Nonobstructing calculus at the upper pole. Complex cyst with calcification given hypodensity at the level of the renal hilum for which nonemergent CT would be recommended for further evaluation. Ultrasound Renal Bilateral [May 02 2020 12:57PM] Assessment and Plan: Admitting Dx: Hypercalcemia: Entered Date: 02-May-2020 02:09 Additional Dx: Change in mental status: Onset Date: 04-May-2020, Entered Date: 04-May-2020 11:21 Code Status: Code StatusDNAR with Added Limitations Assessment: Aspiration pneumonia UTI Leukocytosis persist patient is off antibiotics Observe at this point Electronic Signatures: Alberto Allred) (Signed 05-May-2020 12:21) Authored: Service, History of Present Illness, Subjective Data, Objective Data, Assessment and Plan, Note Completion Last Updated: 05-May-2020 12:21 by Alberto Allred) [facility] Daily Progress Note-Nephrolo gyon 05-05-2020 Daily Progress Note-Nephrology Service: Nephrology Subjective Data: LINDA PERALTA is a 75 year old Female who is Hospital Day # 4. renal function stable, Ca wnl, uric acid better, off fluids. Objective Data: Objective Information: T PRBPSpO2 [id number]/8398% Date/Time05/05 7: 7: 14: 7: 7:22 Range(36.2C - 36.3C ) (75 - 83 ) (18 - 18 ) (135 - 148 )/ (83 - 88 ) (93% - 98% ) Pain reported at 05/05 9:49: 0 = None ---- Intake and Output ----- Mn/Dy/[facility] May 05, 2020 6:00 [id number] May 04, 2020 10:00 [id number] May 04, 2020 2:00 [id number] The Intake and Output Totals for the last 24 hours are: IntakeOutputNet [id number] Constitutional: Alert, in no acute distress HEENT: NC/AT, anicteric Lungs: CTAB, non-labored respirations Heart: RRR, no murmur Abdomen: soft, NT, ND Ext: no cyanosis, + peripheral edema Neuro: Alert, follows commands Medication: Medications: Continuous Medications -------- No continuous medications are active Scheduled Medications -------- 1. Allopurinol: 200 mg Oral Every 24 Hours 2. Atorvastatin: 10 mg Oral Daily 3. Fluticasone 50 microgram/ Nasal Inhalation: 1 spray(s) Each Nostril Daily 4. Furosemide Injectable: 40 mg IntraVenous Push Daily 5. Hydrocortisone Na Succinate Injectable: 25 mg IntraVenous Push Every 12 Hours 6. Menthol 0.44% - Zinc Oxide 20.625% Topical: 1 application(s) Topical 3 Times a Day 7. Pantoprazole Injectable: 40 mg IntraVenous Push Every 24 Hours 8. Potassium Chloride Extended Release: 40 mEq Oral Every 12 Hours 9. Sevelamer Carbonate: 800 mg Oral 3 Times a Day With Meals 10. Warfarin: 2.5 mg Oral Daily PRN Medications -------- 1. Acetaminophen: 650 mg Oral Every 4 Hours 2. hydrALAZINE (APRESOLINE) Injectable: 5 mg IntraVenous Push Every 6 Hours 3. Magnesium Hydroxide -Al Hydrox -Simethicone Oral Liquid: 30 mL Oral Every 4 Hours 4. Morphine Injectable: 1 mg IntraVenous Push Every 4 Hours 5. Nitroglycerin SubLingual: 0.4 mg SubLingual Every 5 Minutes 6. Ondansetron Injectable: 4 mg IntraVenous Push Every 4 Hours Conditional Medication Orders -------- 1. Perflutren Lipid Microsphere (Activated) 1.3 mL / NaCL 0.9% T.V. 10 mL Injectable: 0.5 mL IntraVenous Push Once Currently Suspended Medications -------- 1. Fludrocortisone: 0.1 mg Oral Daily 2. Hydrocortisone: 10 mg Oral Daily 3. Hydrocortisone: 20 mg Oral Daily 1800 Recent Lab Results: Results: CBC: 05/05/2020 05:35 \ Hgb / \ 10.2 L / WBC Plt 19.9 H 323 / Hct \ / 30.6 L \ RBC: 3.43 L MCV: 89 BMP: 05/05/2020 05:34 NA+ Cl- BUN / 139 100 72 H / -------- Glucose --- 98 K+ HCO3- Creat \ 2.9 LL 31 2.28 H \ Calcium : 9.1 Anion Gap : 11 Coagulation: 05/05/2020 05:34 PT / 23.6 H / -------< INR < 2.0 H PTT\ \ Assessment and Plan: Code Status: Code StatusDNAR with Added Limitations Assessment: LINDA PERALTA is a 75 year old Female w/ history s/f HTN, CAD, moris's disease, solitary kidney c/b RCC s/p partial nephrectomy, DVT/PE who was initially [facility], hypercalcemia and hypotension now transferred here. 1. ANGELA on CKD: previously hypotensive at [facility], now hypertensive, also CRS as pt is volume overloaded on exam vs. crystal induced (hypercalcemic, hyperphosphatemic, hyperuricemic), not on any nephrotoxic medications, not rhabdomyolysis (nml CK even though has high phos and uric acid), does have risk factors for CKD due to donating LT kidney hence has RT solitary kidney c/b RCC s/p RT partial nephrectomy 2. Hypercalcemia/hyperphosp hatemia: c/f hyperparathyroidism (primary or secondary though would expect low phos pt has low kidney function so decreasing phos clearance) vs. elevated Vit d 1,25 vs. paraproteinemia, has nml Vit D 33, PTH wnl 19 3. Hyperuricemia: has nml CK, unlikely related to TLS (has high phos but would also expect hyperkalemia though this could be affected w/ pt on florinef and likely hypocalcemia), not on thiazides, can be seen in sarcoidosis, hyperparathyroidism, hypothyroidism 4. HTN: could be due to medications (on florinef, hydrocortisone) or increased salt load from IVFs 5. Adrenal insufficiency: on florinef and hydrocortisone Plan: - encourage PO - continue lasix, allopurinol - PTHrp and Vit D 1,25 and SPEP pending - continue allopurinol 200 mg QD Electronic Signatures: Leigh Billy) (Signed 05-May-2020 14:00) Authored: Service, Subjective Data, Objective Data, Assessment and Plan, Note Completion Last Updated: 05-May-2020 14:00 by Leigh Billy) Normal [facility] Daily Progress Note-Neurolog yon 05-05-2020 Daily Progress Note-Neurology Service: Neurology Subjective Data: LINDA PERALTA is a 75 year old Female who is Hospital Day # 4. The patient examined feeling weak all over Overall intake improving She is on Maalox did not help. She did not want Zofran or Phenergan Patient feeling better today Weakness in the legs continues but better. MRI of the cervical, thoracic and lumbar spine showed multilevel disc disease and osteoarthritis. Multilevel compression deformities in the thoracic spine without any significant stenosis Serum calcium is better. Objective Data: Objective Information: T PRBPSpO2 [id number]/8295% Date/Time05/05 14: 14: 14: 14:30 Range(36.2C - 36.3C ) (73 - 83 ) (135 - 148 )/ (82 - 88 ) (94% - 98% ) Pain reported at 05/05 9:49: 0 = None ---- Intake and Output ----- Mn/Dy/Year TimeIntakeOutputNet May 05, 2020 2:00 [id number] May 05, 2020 6:00 [id number] May 04, 2020 10:00 [id number] The Intake and Output Totals for the last 24 hours are: IntakeOutputNet [id number] Physical Exam by System: Neurological: The patient is awake and more alert. Had generalized weakness physical, occupational therapy working with the patient Patient is in no distress There is no jerking There are no involuntary movements Vision is clear Speech is clear Rehab to work with the patient Strength is well-maintained No new problem Medication: Medications: Continuous Medications -------- No continuous medications are active Scheduled Medications -------- 1. Allopurinol: 200 mg Oral Every 24 Hours 2. Atorvastatin: 10 mg Oral Daily 3. Fluticasone 50 microgram/ Nasal Inhalation: 1 spray(s) Each Nostril Daily 4. Furosemide Injectable: 40 mg IntraVenous Push Daily 5. Hydrocortisone Na Succinate Injectable: 25 mg IntraVenous Push Every 12 Hours 6. Menthol 0.44% - Zinc Oxide 20.625% Topical: 1 application(s) Topical 3 Times a Day 7. Pantoprazole Injectable: 40 mg IntraVenous Push Every 24 Hours 8. Potassium Chloride Extended Release: 40 mEq Oral Every 12 Hours 9. Sevelamer Carbonate: 800 mg Oral 3 Times a Day With Meals 10. Warfarin: 2.5 mg Oral Daily PRN Medications -------- 1. Acetaminophen: 650 mg Oral Every 4 Hours 2. hydrALAZINE (APRESOLINE) Injectable: 5 mg IntraVenous Push Every 6 Hours 3. Magnesium Hydroxide -Al Hydrox -Simethicone Oral Liquid: 30 mL Oral Every 4 Hours 4. Morphine Injectable: 1 mg IntraVenous Push Every 4 Hours 5. Nitroglycerin SubLingual: 0.4 mg SubLingual Every 5 Minutes 6. Ondansetron Injectable: 4 mg IntraVenous Push Every 4 Hours Conditional Medication Orders -------- 1. Perflutren Lipid Microsphere (Activated) 1.3 mL / NaCL 0.9% T.V. 10 mL Injectable: 0.5 mL IntraVenous Push Once Currently Suspended Medications -------- 1. Fludrocortisone: 0.1 mg Oral Daily 2. Hydrocortisone: 10 mg Oral Daily 3. Hydrocortisone: 20 mg Oral Daily 1800 Recent Lab Results: Results: CBC: 05/05/2020 05:35 \ Hgb / \ 10.2 L / WBC Plt 19.9 H 323 / Hct \ / 30.6 L \ RBC: 3.43 L MCV: 89 BMP: 05/05/2020 05:34 NA+ Cl- BUN / 139 100 72 H / -------- Glucose --- 98 K+ HCO3- Creat \ 2.9 LL 31 2.28 H \ Calcium : 9.1 Anion Gap : 11 Coagulation: 05/05/2020 05:34 PT / 23.6 H / -------< INR < 2.0 H PTT\ \ I have reviewed these laboratory results: Complete Blood Count 05-May-2020 05:35:00 ResultValue White Blood Cell Count 19.9 H Red Blood Cell Count 3.43 L HGB 10.2 L HCT 30.6 L MCV 89 MCHC 33.3 PLT 323 RDW-CV 15.6 H Parathormone Intact, Serum 05-May-2020 05:35:00 ResultValue Parathormone Intact, Serum 31.6 Basic Metabolic Panel 05-May-2020 05:34:00 ResultValue Lab Comment: Called- RB to Catherine Marroquin, 05/05/2020 06:47 Glucose, Serum 98 NA 139 K 2.9 LL CL 100 Bicarbonate, Serum 31 Anion Gap, Serum 11 BUN 72 H CREAT 2.28 H GFR-Non 21 A GFR- 25 A Calcium, Serum 9.1 PT + INR, Plasma 05-May-2020 05:34:00 ResultValue Prothrombin Time, Plasma 23.6 H International Normalized Ratio, Plasma 2.0 H Uric Acid, Serum 05-May-2020 05:34:00 ResultValue Uric Acid, Serum 9.7 H Phosphorus, Serum 05-May-2020 05:34:00 ResultValue Phosphorus, Serum 4.8 Radiology Results: Results: Impression: Mild compression deformities of several thoracic vertebral bodies without edema or retropulsion. There is no central canal stenosis in the thoracic region. Multilevel lumbar spondylosis as detailed. Extensive edema within the posterior paraspinous soft tissues particularly surrounding bilateral L4-L5 facets. Partially visualized edema within the presacral soft tissues, also noted on prior CT abdomen and pelvis. MRI T Spine without Contrast [May 04 2020 1:47PM] Impression: Mild compression deformities of several thoracic vertebral bodies without edema or retropulsion. There is no central canal stenosis in the thoracic region. Multilevel lumbar spondylosis as detailed. Extensive edema within the posterior paraspinous soft tissues particularly surrounding bilateral L4-L5 facets. Partially visualized edema within the presacral soft tissues, also noted on prior CT abdomen and pelvis. MRI L Spine without Contrast [May 04 2020 1:47PM] Impression: 1 to 15% stenosis right internal carotid artery. 1 to 15% stenosis left internal carotid artery. Blood flow is antegrade in the right vertebral artery. Blood flow is antegrade in the left vertebral artery. If clinically indicated we could repeat the study in 1 year. Ultrasound Carotid Bilateral Duplex [May 03 2020 8:00PM] Assessment and Plan: Admitting Dx: Hypercalcemia: Entered Date: 02-May-2020 02:09 Additional Dx: Change in mental status: Onset Date: 04-May-2020, Entered Date: 04-May-2020 11:21 Code Status: Code StatusDNAR with Added Limitations Assessment: The patient had episode of change in the mental status probably metabolic:The patient is improving She has a minimal psychomotor slowing History of gait ataxia and falls she needs 1 person assist to ambulate her, Improving Change of peripheral neuropathy probably uremic Patient is admitted here for the B12 and vitamin D deficiency in the past adnexa urinary tract infection recently could have made her mental status. 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 Sarcoidosis History of [place]'s disease Gout 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 Hyperlipidemia Atopic dermatitis has been treated Lower lung airway disease Aortic valve cusp calcification mild to moderate her She is on warfarin for the DVT, pulmonary emboli Elevated pulmonary artery pressure Recommendations EEGOrdered Folic acid level normal Continue with the physical therapy 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 Therapy Orthostatic blood pressures i MRI of the spine did not show high-grade stenosis, patient has a multilevel disc disease and spondylosis Varying degrees of compression fractures thoracic Ultrasound carotid arteriesFeel 1 to 15% stenosis To continue supportive measures Electronic Signatures: Vicky Boyd) (Signed 05-May-2020 19:20) Authored: Service, Subjective Data, Objective Data, Assessment and Plan, Note Completion Last Updated: 05-May-2020 19:20 by Vicky Boyd) Normal [facility] Daily Progress Note-Urologyo n 05-05-2020 Daily Progress Note-Urology Service: Urology Subjective Data: LINDA PERALTA is a 75 year old Female who is Hospital Day # 4. Urology progress note for Monday 316.1, Quan catheter in place draining yellow clear urine Today's sitting at the bedside, still feels weak somewhat lethargic Renal insufficiency persists serum creatinine 2.28 wBC count elevated at 19,900 Currently off antibiotics and observation as per infectious disease Still planning to wait for some reasonable improvement in overall medical status ambulation and mobility and then planning to remove Quan catheter for a voiding trial Otherwise continue supportive care Additional medical and historical objective data reviewed and listed below. Objective Data: Objective Information: T PRBPSpO2 [id number]/8398% Date/Time05/05 7: 7: 14: 7: 7:22 Range(36.2C - 36.3C ) (75 - 83 ) (18 - 18 ) (135 - 148 )/ (83 - 88 ) (93% - 98% ) Pain reported at 05/05 9:49: 0 = None ---- [facility] and [facility] ----- [facility] 6:00 [id number] May 04, 2020 10:00 [id number] May 04, 2020 2:00 [id number] The Intake and Output Totals for the last 24 hours are: IntakeOutputNet [id number] T PRBPSpO2 Value36.20162953/8398% Date/Time05/05 7: 7: 14: 7: 7:22 Range(36.2C - 36.3C ) (75 - 83 ) (18 - 18 ) (135 - 148 )/ (83 - 88 ) (93% - 98% ) Pain reported at 05/05 9:49: 0 = None ---- [facility] and Output ----- [facility] 05[facility] 2020 6:00 [id number] May 04, 2020 10:00 [id number] May 04, 2020 2:00 [id number] The Intake and Output Totals for the last 24 hours are: IntakeOutputNet [id number] ---Intake--- Enteral - Oral PO Fluid/Feed (oral): 100 mL IV Fluids IV Piggybacks: 50 mL IV Piggybacks: 50 mL ---Output--- Urine Intermittent Catheterization - Urethral: 1550 mL Indwelling Catheter - Urethral: 2550 mL Intake Output Enteral - Oral 100 mL Urine 4100 mL IV Fluids 50 mL Medication: Medications: CARDIOVASCULAR AGENTS: 1. Nitroglycerin SubLingual: 0.4 mg SubLingual Every 5 Minutes PRN 2. Furosemide Injectable: 40 mg IntraVenous Push Daily 3. hydrALAZINE (APRESOLINE) Injectable: 5 mg IntraVenous Push Every 6 Hours PRN CENTRAL NERVOUS SYSTEM AGENTS: 1. Acetaminophen: 650 mg Oral Every 4 Hours PRN 2. Morphine Injectable: 1 mg IntraVenous Push Every 4 Hours PRN 3. Ondansetron Injectable: 4 mg IntraVenous Push Every 4 Hours PRN COAGULATION MODIFIERS: 1. Warfarin: 2.5 mg Oral Daily GASTROINTESTINAL AGENTS: 1. Magnesium Hydroxide -Al Hydrox -Simethicone Oral Liquid: 30 mL Oral Every 4 Hours PRN 2. Pantoprazole Injectable: 40 mg IntraVenous Push Every 24 Hours HORMONES/HORMONE MODIFIERS: 1. Hydrocortisone Na Succinate Injectable: 25 mg IntraVenous Push Every 12 Hours METABOLIC AGENTS: 1. Allopurinol: 200 mg Oral Every 24 Hours 2. Atorvastatin: 10 mg Oral Daily MISCELLANEOUS AGENTS: 1. Sevelamer Carbonate: 800 mg Oral 3 Times a Day With Meals NUTRITIONAL PRODUCTS: 1. Potassium Chloride Extended Release: 40 mEq Oral Every 12 Hours TOPICAL AGENTS: 1. Menthol 0.44% - Zinc Oxide 20.625% Topical: 1 application(s) Topical 3 Times a Day 2. Fluticasone 50 microgram/ Nasal Inhalation: 1 spray(s) Each Nostril Daily Conditional Medication Orders -------- 1. Perflutren Lipid Microsphere (Activated) 1.3 mL / NaCL 0.9% T.V. 10 mL Injectable: 0.5 mL IntraVenous Push Once Currently Suspended Medications -------- 1. Fludrocortisone: 0.1 mg Oral Daily 2. Hydrocortisone: 10 mg Oral Daily 3. Hydrocortisone: 20 mg Oral Daily 1800 Recent Lab Results: Results: CBC: 05/05/2020 05:35 \ Hgb / \ 10.2 L / WBC Plt 19.9 H 323 / Hct \ / 30.6 L \ RBC: 3.43 L MCV: 89 BMP: 05/05/2020 05:34 NA+ Cl- BUN / 139 100 72 H / -------- Glucose --- 98 K+ HCO3- Creat \ 2.9 LL 31 2.28 H \ Calcium : 9.1 Anion Gap : 11 Coagulation: 05/05/2020 05:34 PT / 23.6 H / -------< INR < 2.0 H PTT\ \ I have reviewed these laboratory results: Complete Blood Count Trending View [id number] 05:35:00 04-May-2020 05:26:00 White Blood Cell Count19.9 H 22.3 H Red Blood Cell Count3.43 L 3.82 L HGB10.2 L 11.2 L HCT30.6 L 34.4 L MCV89 90 MCHC33.3 32.6 MYX991 382 RDW-CV15.6 H 15.9 H Parathormone Intact, Serum 05-May-2020 05:35:00 ResultValue Parathormone Intact, Serum 31.6 Basic Metabolic Panel Trending View [id number] 05:34:00 04-May-2020 05:26:00 Lab Comment:Called- RB to Catherine Marroquin, 05/05/2020 06:47 Glucose, Serum98 90 NA139 137 K2.9 LL 3.6 CL100 101 Bicarbonate, Serum31 27 Anion Gap, Serum11 13 BUN72 H 79 H CREAT2.28 H 2.39 H GFR-Non Kddjhumy02 A 20 A GFR- Xbubayiv68 A 24 A Calcium, Serum9.1 9.8 PT + INR, Plasma 05-May-2020 05:34:00 ResultValue Prothrombin Time, Plasma 23.6 H International Normalized Ratio, Plasma 2.0 H Uric Acid, Serum 05-May-2020 05:34:00 ResultValue Uric Acid, Serum 9.7 H Radiology Results: Results: Impression: Mild compression deformities of several thoracic vertebral bodies without edema or retropulsion. There is no central canal stenosis in the thoracic region. Multilevel lumbar spondylosis as detailed. Extensive edema within the posterior paraspinous soft tissues particularly surrounding bilateral L4-L5 facets. Partially visualized edema within the presacral soft tissues, also noted on prior CT abdomen and pelvis. MRI T Spine without Contrast [May 04 2020 1:47PM] Impression: Mild compression deformities of several thoracic vertebral bodies without edema or retropulsion. There is no central canal stenosis in the thoracic region. Multilevel lumbar spondylosis as detailed. Extensive edema within the posterior paraspinous soft tissues particularly surrounding bilateral L4-L5 facets. Partially visualized edema within the presacral soft tissues, also noted on prior CT abdomen and pelvis. MRI L Spine without Contrast [May 04 2020 1:47PM] Impression: 1 to 15% stenosis right internal carotid artery. 1 to 15% stenosis left internal carotid artery. Blood flow is antegrade in the right vertebral artery. Blood flow is antegrade in the left vertebral artery. If clinically indicated we could repeat the study in 1 year. Ultrasound Carotid Bilateral Duplex [May 03 2020 8:00PM] Impression: Chest 1. Small to moderate left pleural effusion and small right pleural effusion with mild right consolidative opacities. Age-indeterminate wedge compression deformity of the T10 vertebral body with less than 25% height loss. 2. Limited evaluation without the administration of intravenous contrast. Abdomen-Pelvis 1. Solitary right kidney with a nonspecific hypodensity and calcified lesion as seen on prior ultrasound, not fully evaluated on the current noncontrast exam. Contrast a cross-sectional imaging is recommended for evaluation when clinically appropriate. 2. Mild presacral and lateral body wall soft tissue edema, correlate with volume status. 3. Air in the urinary bladder, correlate with recent intervention or correlate with urinalysis if there is concern for infection. 4. Additional findings as above. CT Chest Abdomen Pelvis without Contrast [May 03 2020 10:24AM] Impression: CT Abdomen and Pelvis without Contrast [May 02 2020 4:41PM] Impression: 1. Lower lung airspace disease greater on the left. Xray Chest 2 View PA + Lateral [May 02 2020 1:50PM] Conclusion: CONCLUSIONS: 1. The left ventricular systolic function is normal with a 60-65% estimated ejection fraction. 2. Spectral Doppler shows an impaired relaxation pattern of left ventricular diastolic filling. 3. Mild aortic valve stenosis. 4. There is moderate aortic valve cusp calcification. 5. Mild to moderately elevated pulmonary artery pressure. QUANTITATIVE DATA SUMMARY: 2D MEASUREMENTS: Normal Ranges: Ao Root d: 2.70 cm (2.0-3.7cm) LAs: 3.20 cm (2.7-4.0cm) IVSd: 1.44 cm (0.6-1.1cm) LVPWd: 1.34 cm (0.6-1.1cm) LVIDd: 2.51 cm (3.9-5.9cm) LVIDs: 1.97 cm LV Mass Index: 61.5 g/m2 LV % FS 21.5 % LA VOLUME: Normal Ranges: LA Volume Index: 32.1 ml/m2 RA VOLUME BY A/L METHOD: Normal Ranges: RA Vol A4C: 45.7 ml (8.3-19.5ml) RA Vol Index A4C: 25.4 ml/m2 RA Area A4C: 16.4 cm2 RA Major [place] A4C: 5.0 cm M-MODE MEASUREMENTS: Normal Ranges: Ao Root: 3.00 cm (2.0-3.7cm) AoV Exc: 1.20 cm (1.5-2.5cm) LAs: 3.00 cm (2.7-4.0cm) AORTA MEASUREMENTS: Normal Ranges: AoV Exc: 1.20 cm (1.5-2.5cm) LV SYSTOLIC FUNCTION BY 2D PLANIMETRY (MOD): Normal Ranges: EF-A4C View: 56.0 % (>55%) EF-A2C View: 57.4 % EF-Biplane: 55.9 % LV DIASTOLIC FUNCTION: Normal Ranges: MV Peak E: 0.65 m/s (0.7-1.2 m/s) MV Peak A: 1.32 m/s (0.42-0.7 m/s) E/A Ratio: 0.49 (1.0-2.2) MV e' 0.07 m/s (>8.0) MV lateral e' 0.06 m/s MV medial e' 0.07 m/s E/e' Ratio: 9.29 (<8.0) a' 0.12 m/s MITRAL VALVE: Normal Ranges: MV Vmax: 0.58 m/s (<1.3m/s) MV peak P.3 mmHg (<5mmHg) MV DT: 232 msec (150-240msec) AORTIC VALVE: Normal Ranges: AoV Mean P.0 mmHg (1.7-11.5mmHg) LVOT Max Tegan: 1.09 m/s (<1.1m/s) AoV VTI: 34.40 cm (18-25cm) LVOT VTI: 22.80 cm LVOT Diameter: 1.70 cm (1.8-2.4cm) AoV Area, VTI: 1.50 cm2 (2.5-5.5cm2) AoV Dimensionless Index: 0.66 RIGHT VENTRICLE: RV 1 3.7 cm RV 2 2.8 cm RV 3 6.3 cm TAPSE: 18.7 mm RV s' 0.24 m/s TRICUSPID VALVE/RVSP: Normal Ranges: Peak TR Velocity: 3.09 m/s RV Syst Pressure: 41.2 mmHg (< 30mmHg) IVC Diam: 1.40 cm PULMONIC VALVE: Normal Ranges: PV Accel Time: 95 msec (>120ms) PV Max Tegan: 1.2 m/s (0.6-0.9m/s) PV Max P.2 mmHg [id number] Tremayne Mcleod MD Electronically signed on 05/02/2020 at 1:08:29 PM Final Echocardiogram [May 02 2020 1:08PM] Impression: No evidence of hydronephrosis. Nonobstructing calculus at the upper pole. Complex cyst with calcification given hypodensity at the level of the renal hilum for which nonemergent CT would be recommended for further evaluation. Ultrasound Renal Bilateral [May 02 2020 12:57PM] Assessment and Plan: Admitting Dx: Hypercalcemia: Entered Date: 02-May-2020 02:09 Additional Dx: Change in mental status: Onset Date: 04-May-2020, Entered Date: 04-May-2020 11:21 Code Status: Code StatusDNAR with Added Limitations Advance Care Planning: Advance Care Planning: Patient didn't wish to or was unable to provide advance care plan Electronic Signatures: Alvin Sawyer) (Signed 05-May-2020 13:22) Authored: Service, Subjective Data, Objective Data, Assessment and Plan, Note Completion Last Updated: 05-May-2020 13:22 by Alvin Sawyer) [facility] CHELA PATH REVIEWon 05-05-2020 PATH REVIEW-CHELA EARLY Normal [facility] Comment on above: Result Comment: By h er/his signature above, the Pathologist listed as making the final interpretation certifies that she/he has personally reviewed this case. Performed By: #### P R12 #### [facility] [address] [place] [address] PARATHYROID HORMONE,INTACTon 05-05-2020 PARATHYROID HORMONE,INTACT 31.6 pg/mL Normal 12.0 - 88.0 [facility] Comment on above: Performed By: #### P TH ####[address] [id number] PHOSPHORUSon 05-05-2020 Phosphate [Mass/Vol] 4.8 mg/dL Normal 2.5 - 4.9 [facility] Comment on above: Result Comment: The performance characteristics of phosphorus testing in heparinized plasma have been validated by the individual laboratory site where testing is performed. Testing on heparinized plasma is not approved by the FDA; however, such approval is not necessary. Performed By: #### P HOS ####[address] [id number] PROTEIN ELECTROPHORESIS + IM MUNOFIXATION, SERUMon 05-05-2020 IMMUNOFIXATION INTERP NORMAL Normal [facility] Comment on above: Result Comment: No m onoclonal proteins detected by immunofixation. Performed By: #### I FE2 ####[address] [id number] [place] [address] INTERPRETATION SEE COMMENT Normal [facility] Comment on above: Result Comment: REFL EXED TO IMMUNOFIXATION ELECTROPHORESIS Hypoalbuminemia. Performed By: #### I FE2 ####[address] [id number] [place] [address] MONOCLONAL PROTEIN NONE DETECTED Normal [facility] Comment on above: Performed By: #### I FE2 ####[address] [id number] [place] [address] PT/INRon 05-05-2020 INR Coag (PPP) [Relative time] 2.0 {INR} High 0.9 - 1.1 [facility] Comment on above: Performed By: #### P TINR ####[facility] [place], [place] [id number] PT Coag (PPP) [Time] 23.6 s High 10.1 - 13.3 [facility] Comment on above: Performed By: #### P TINR ####[place] [id number] [place], [place] [id number] SPE PATH REVIEWon 05-05-2020 PATH REVIEW-SPE NNEKA Normal [facility] Comment on above: Result Comment: By h er/his signature above, the Pathologist listed as making the final interpretation certifies that she/he has personally reviewed this case. Performed By: #### P R12 #### [facility] [address] [place] [address] Swallow Evaluation v2-Bedsid e Clinical Swallow, SLPon 05-05-2020 Swallow Evaluation v2-Bedside Clinical Swallow, TERMITE TECHNICIAN Rehab: Info: Time IN12:00 Time OUT12:15 Total Treatment [id number] Evaluation TypeBedside Clinical Swallow, TERMITE TECHNICIAN Patient Effortgood Patient Profile Reviewedyes Reason for ReferralDysphagia Referring PhysicianTamesis General Observations of PatientPatient was seen for a bedside swallow evaluation this date. Patient was awake, alert, and cooperative. Pertinent History of Current Functional [facility] eval. Found to have AMS, hypercalcemia and hypotension. + encephalopathy. Consults for infection disease, neuro, endocrinology and nephrology. Abdomen/Chest CT- B/L pleural effusion, compression deformity T10 CXR- lower lung airspace disease greater on L. 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 Patient presents with a within functional limits oral motor assessment. No asymmetry or weakness noted at rest. Patient had adequate dentition for mastication. Diagnostic Impressions: Patient presents with a mild oral dysphagia and no overt signs symptoms of pharyngeal dysphagia. Patient reports that it feels like food is getting caught in her throat. She also reported that cold foods/liquids feel better on her throat than hot foods/liquids. Recommending regular diet with thin liquids. Oral Phase: Patient tolerated bites of vanilla pudding without signs/symptoms of aspiration. Patient tolerated abner cracker with delayed oral phases secondary to delayed mastication. Patient indicated she was not able to clear all of the abner cracker out of oral cavity and required sips of thin liquid to clear residue. Patient indicated that thin liquid did an adequate job to clear oral cavity. Pharyngeal Phase: Patient presented with adequate laryngeal elevation across all consistencies. Patient tolerated sips of thin liquid without signs symptoms of aspiration seen. Rehab Potential/Prognosis (Swallow Eval)good, to achieve stated therapy goals Speech Therapy RecommendationsRECOMMEND ATIONS: Diet Recommendations: Regular diet with thin liquids Therapy Recommendations: 3-5x/wk Criteria for Skilled Therapeutic Interventions Met (Swallow Eval)yes; treatment indicated Therapy Frequency (TERMITE TECHNICIAN)3-5x/wk Expected Duration Therapy [id number] minutes TERMITE TECHNICIAN Diet Recommendations (Swallow Eval)REGULAR WITH THIN LIQUIDS Recommended Feeding/Eating Techniques (Swallow Eval)alternate between small bites and sips of food/liquid& double/multiple swallows& feed upright in 90 degree position& small sips/bites& slow rate Monitor for Signs of Aspiration (Swallow Eval)cough; gurgly voice; throat clearing; fever; upper respiratory infection; pneumonia Short Term Goals: Dysphagia/Swallow: Established [id number] Dysphagia/Swallow: Goal Details1. Patient will tolerate highest and safest PO diet without signs symptoms of aspiration 2. Patient will complete base of tongue and airway protection exercises with 90% accuracy. 3. Patient will use compensatory swallowing techniques with 90% accuracy. Dysphagia/Swallow: Time Frame for Goal30 days Education: Education - TopicPatient and nurse educated regarding results and recommendations of bedside swallow evaluation. This documentation was completed using the [employer] Dictation system. There may be spelling and/or grammatical errors that were not corrected prior to final submission. Electronic Signatures: Jayme Keys (TERMITE TECHNICIAN) (Signed 05-May-2020 13:38) Authored: Info, Impression, Short Term Goals, Education Last Updated: 05-May-2020 13:38 by Jayme Keys (TERMITE TECHNICIAN) Normal [facility] URIC ACIDon 05-05-2020 Urate [Mass/Vol] 9.7 mg/dL High 2.3 - 6.7 [facility] Comment on above: Result Comment: Nadia puncture immediately after or during the administration of Metamizole may lead to falsely low results. Testing should be performed immediately prior to Metamizole dosing. Performed By: #### C MP #### [address] [id number] BASIC METABOLIC PANELon 04-20 Anion gap [Moles/Vol] 13 mmol/L Normal 10 - 20 [facility] Comment on above: Performed By: #### C MP #### [address] [id number] Calcium [Mass/Vol] 9.8 mg/dL Normal 8.6 - 10.3 [facility] Comment on above: Performed By: #### C MP #### [address] [id number] Chloride [Moles/Vol] 101 mmol/L Normal 98 - 107 [facility] Comment on above: Performed By: #### C MP #### [address] [id number] Creatinine [Mass/Vol] 2.39 mg/dL High 0.50 - 1.05 [facility] Comment on above: Performed By: #### C MP #### [address] [id number] GFR- AM. 24 mL/min/1.73m2 Abnormal >60 [facility] Comment on above: Result Comment: CALC ULATIONS OF ESTIMATED GFR ARE PERFORMED USING THE MDRD STUDY EQUATION FOR THE IDMS-TRACEABLE CREATININE METHODS. CLIN CHEM 2007;53:766-72 Performed By: #### C MP #### [address] [id number] GFR-NON AM. 20 mL/min/1.73m2 Abnormal >60 [facility] Comment on above: Performed By: #### C MP #### [address] [id number] Glucose [Mass/Vol] 90 mg/dL Normal 74 - 99 [facility] Comment on above: Performed By: #### C MP #### [address] [id number] HCO3 (Bld) [Moles/Vol] 27 mmol/L Normal 21 - 32 [facility] Comment on above: Performed By: #### C MP #### [address] [id number] Potassium [Moles/Vol] 3.6 mmol/L Normal 3.5 - 5.3 [facility] Comment on above: Performed By: #### C MP #### [address] [id number] Sodium [Moles/Vol] 137 mmol/L Normal 136 - 145 [facility] Comment on above: Performed By: #### C MP #### [address] [id number] Urea nitrogen [Mass/Vol] 79 mg/dL High 6 - 23 [facility] Comment on above: Performed By: #### C MP #### [address] [id number] CBCon 05-04-2020 Erythrocyte distribution width (RBC) [Ratio] 15.9 % High 11.5 - 14.5 [facility] Comment on above: Performed By: #### P R12 #### [facility] [address] [place] [address] Hematocrit (Bld) [Volume fraction] 34.4 % Low 36.0 - 46.0 [facility] Comment on above: Performed By: #### P R12 #### [facility] [address] [place] [address] Hemoglobin (Bld) [Mass/Vol] 11.2 g/dL Low 12.0 - 16.0 [facility] Comment on above: Performed By: #### P R12 #### [facility] [address] [place] [address] MCHC (RBC) [Mass/Vol] 32.6 g/dL Normal 32.0 - 36.0 [facility] Comment on above: Performed By: #### P R12 #### [facility] [address] [place] [address] MCV (RBC) [Entitic vol] 90 fL Normal 80 - 100 [facility] Comment on above: Performed By: #### P R12 #### [facility] [address] [place] [address] Platelets (Bld) [#/Vol] 382 10*3/uL Normal 150 - 450 [facility] Comment on above: Performed By: #### P R12 #### [facility] [address] [place] [address] RBC (Bld) [#/Vol] 3.82 x10E12/L Low 4.00 - 5.20 [facility] Comment on above: Performed By: #### P R12 #### [facility] [address] [place] [address] WBC (Bld) [#/Vol] 22.3 10*3/uL High 4.4 - 11.3 [facility] Comment on above: Performed By: #### P R12 #### [facility] [address] [place] [address] CREATINE KINASEon 05-04-2020 CK [Catalytic activity/Vol] 51 U/L Normal 0 - 215 [facility] Comment on above: Performed By: #### C #### [facility] [address] [place], [place] [id number] Consult-Endocrinologyon 04-20 Consult-Endocrinology Service: Service: Endocrinology Consult: Consult requested by (Attending Name): Mega Ornelas Reason: hypercalcemia, history of moris's disease History of Present Illness: HPI: LINDA PERALTA is a 75 year old Female HPI: LINDA PERALTA is a 75 year [...] improving with volume resuscitation. decision made to transfer pt here for subspecialty evaluation. Dr Gregory reportedly agreed to consult. Pt had a UTI at the outside hospital- culture grew citrobacter, pt was put on antibiotic- unclear when course completed The patient has no current complaints other than fatigue and wanting to be out of the hospital PMHx: DVT/PE on warfarin, renal cell carcinoma, HTN, CAD, atopic dermatitis, moris's disease, CKD stage III PSHx: nephrectomy, ARIEL, bladder resecttion SHx: no tobacco etoh or illicit drug use FHx and ROS not obtainable d/t pt's mental status Review Family/Social History and ROS: Family History: Family History: reviewed and not pertinent to presenting problem Incomplete ROS: poor historian- poor memory Constitutional: POSITIVE: Malaise Neurological: POSITIVE: Syncope All Other Systems: All other systems reviewed and are negative Allergies: ciprofloxacin: Rash penicillins: Rash Objective: Objective Information: T PRBPSpO2 [id number]/9097% Date/Time05/04 8: 8: 8: 8: 8:26 Range(36.2C - 36.9C ) (71 - 93 ) (16 - 18 ) (139 - 162 )/ (89 - 95 ) (92% - 97% ) Highest temp of 36.9 C was recorded at 05/03 14:24 Physical Exam by System: Constitutional: Well developed,no distress, alert and cooperative Medications: Medications: Continuous Medications -------- 1. Sodium Chloride 0.45% with Potassium CL 20 mEq Premix Fluid: 1000 mL IntraVenous Scheduled Medications -------- 1. Allopurinol: 200 mg Oral Every 24 Hours 2. Atorvastatin: 10 mg Oral Daily 3. Ertapenem IV Piggy Back: 0.5 gram(s) IntraVenous Piggyback Every 24 Hours 4. Fluticasone 50 microgram/ Nasal Inhalation: 1 spray(s) Each Nostril Daily 5. Furosemide Injectable: 40 mg IntraVenous Push 2 Times a Day 6. Hydrocortisone Na Succinate Injectable: 25 mg IntraVenous Push Every 12 Hours 7. Menthol 0.44% - Zinc Oxide 20.625% Topical: 1 application(s) Topical 3 Times a Day 8. Pantoprazole Injectable: 40 mg IntraVenous Push Every 24 Hours 9. Potassium Chloride Extended Release: 40 mEq Oral Daily 10. Sevelamer Carbonate: 800 mg Oral 3 Times a Day With Meals 11. Warfarin: 2.5 mg Oral Daily PRN Medications -------- 1. Acetaminophen: 650 mg Oral Every 4 Hours 2. hydrALAZINE (APRESOLINE) Injectable: 5 mg IntraVenous Push Every 6 Hours 3. Magnesium Hydroxide -Al Hydrox -Simethicone Oral Liquid: 30 mL Oral Every 4 Hours 4. Morphine Injectable: 1 mg IntraVenous Push Every 4 Hours 5. Nitroglycerin SubLingual: 0.4 mg SubLingual Every 5 Minutes 6. Ondansetron Injectable: 4 mg IntraVenous Push Every 4 Hours Conditional Medication Orders -------- 1. Perflutren Lipid Microsphere (Activated) 1.3 mL / NaCL 0.9% T.V. 10 mL Injectable: 0.5 mL IntraVenous Push Once Currently Suspended Medications -------- 1. Fludrocortisone: 0.1 mg Oral Daily 2. Hydrocortisone: 10 mg Oral Daily 3. Hydrocortisone: 20 mg Oral Daily 1800 Recent Lab Results: Results: I have reviewed these laboratory results: Complete Blood Count Trending View [id number] 05:26:00 03-May-2020 05:31:00 White Blood Cell Count22.3 H 22.9 H Red Blood Cell Count3.82 L 3.81 L HGB11.2 L 11.1 L HCT34.4 L 33.8 L MCV90 89 MCHC32.6 32.8 GQZ237 405 RDW-CV15.9 H 16.0 H Basic Metabolic Panel 04-May-2020 05:26:00 ResultValue Glucose, Serum 90 NA 137 K 3.6 CL 101 Bicarbonate, Serum 27 Anion Gap, Serum 13 BUN 79 H CREAT 2.39 H GFR-Non 20 A GFR- 24 A Calcium, Serum 9.8 Urinalysis with Culture if Indicated 03-May-2020 11:12:00 ResultValue Color, Urine STRAW Reference Range: STRAW,YELLOW Appearance, Urine CLEAR Specific [place], Urine 1.008 pH, Urine 6.0 Protein, Urine NEGATIVE Glucose, Urine NEGATIVE Blood, Urine SMALL(1+) A Ketones, Urine NEGATIVE Bilirubin, Urine NEGATIVE Urobilinogen, Urine <2.0 Nitrite, Urine NEGATIVE Leukocyte Esterase, Urine SMALL (1+) A Urinalysis, Microscopic 03-May-2020 11:12:00 ResultValue White Cells 7 A Red Blood Cells 9 A Epithelial Cells, Squamous 2 Mucous 1+ PT + INR, Plasma 03-May-2020 10:50:00 ResultValue Prothrombin Time, Plasma 33.4 H International Normalized Ratio, Plasma 2.8 H Lactate, Level 03-May-2020 10:50:00 ResultValue Lactate, Level 1.8 Culture, Blood Trending View [id number] 10:49:00 03-May-2020 10:48:00 Culture, BloodNEGATIVE TO DATE, CULTURE IN PROGRESS. NEGATIVE TO DATE, CULTURE IN PROGRESS. Comprehensive Metabolic Panel Trending View [id number] 05:31:00 02-May-2020 02:22:00 Glucose, Serum93 184 H NA138 138 K3.3 L 4.2 CL101 101 Bicarbonate, Serum26 26 Anion Gap, Serum14 15 BUN86 H 84 H CREAT2.39 H 2.31 H GFR-Non Zsquvqzv32 A 20 A GFR- Crhqbuax30 A 24 A Calcium, Serum10.8 H 12.3 H ALB2.7 L 3.0 L ALKP67 79 T Pro4.8 L 5.5 L T Bili0.6 0.7 Alanine Aminotransferase, Serum48 H 64 H Aspartate Transaminase, Serum16 18 Parathormone Intact, Serum 03-May-2020 05:31:00 ResultValue Parathormone Intact, Serum 19.6 Calcium, Ionized Level 02-May-2020 02:22:00 ResultValue Calcium, Ionized Level 1.71 H Magnesium, Serum 02-May-2020 02:22:00 ResultValue Magnesium, Serum 2.00 Osmolality, Serum 02-May-2020 02:22:00 ResultValue Osmolality, Serum 322 H Phosphorus, Serum 02-May-2020 02:22:00 ResultValue Phosphorus, Serum 6.4 H Free Thyroxine, Serum 02-May-2020 02:22:00 ResultValue Free Thyroxine, Serum 1.30 H Thyroid Stimulating Hormone, Serum 02-May-2020 02:22:00 ResultValue Thyroid Stimulating Hormone, Serum 0.69 Protein Electrophoresis, Serum 02-May-2020 02:21:00 ResultValue T Pro 5.5 L Radiology Results: Results: I have reviewed this radiology result: Impression: Chest 1. Small to moderate left pleural effusion and small right pleural effusion with mild right consolidative opacities. Age-indeterminate wedge compression deformity of the T10 vertebral body with less than 25% height loss. 2. Limited evaluation without the administration of intravenous contrast. Abdomen-Pelvis 1. Solitary right kidney with a nonspecific hypodensity and calcified lesion as seen on prior ultrasound, not fully evaluated on the current noncontrast exam. Contrast a cross-sectional imaging is recommended for evaluation when clinically appropriate. 2. Mild presacral and lateral body wall soft tissue edema, correlate with volume status. 3. Air in the urinary bladder, correlate with recent intervention or correlate with urinalysis if there is concern for infection. 4. Additional findings as above. CT Chest Abdomen Pelvis without Contrast [May 03 2020 10:24AM] Impression: CT Abdomen and Pelvis without Contrast [May 02 2020 4:41PM] Impression: No evidence of hydronephrosis. Nonobstructing calculus at the upper pole. Complex cyst with calcification given hypodensity at the level of the renal hilum for which nonemergent CT would be recommended for further evaluation. Ultrasound Renal Bilateral [May 02 2020 12:57PM] Impression: CT Abdomen and Pelvis without Contrast [May 02 2020 4:41PM] Consult Status: Consult Order ID: [id number] Problem/Assessment/Plan: Impression 1: Hypercalcemia and CKD ANGELA Plan for Impression 1: was on dupilumab and Florinef - now held Hydrocortisone now IV HYPERCALCEMIA >13 NOW NORMAL PTH NORMAL CT imaging -no malignancy discovered On NS and Lasix -- improving with conservative treatment - Appreciate Nephrology and Hospitalist Impression 2: Adrenal insufficiency - Plan for Impression 2: On years of steroids was on dupilumab and Florinef - now held Hydrocortisone now IV 25 mg twice a day - stable improved overall Impression 3: ANGELA CKD Plan for Impression 3: per nephrology Electronic Signatures: Alexander Gregory) (Signed 26-May-2020 16:04) Authored: Service, History of Present Illness, Review Family/Social History and ROS, Allergies, Objective, Assessment/Recommendatio ns, Note Completion Last Updated: 26-May-2020 16:04 by Alexander Gregory) Normal [facility] Consult-Urologyon 05-04-2020 Consult-Urology Service: Service: Urology Consult: Consult requested by (Attending Name): Nani Stanley Reason: urinary retention History of Present Illness: Admission Reason: HPI: LINDA PERALTA is a [...] improving with volume resuscitation. decision made to transfer pt here for subspecialty evaluation. Dr Gregory reportedly agreed to consult. Pt had a UTI at the outside hospital- culture grew citrobacter, pt was put on antibiotic- unclear when course completed The patient has no current complaints other than fatigue and wanting to be out of the hospital PMHx: DVT/PE on warfarin, renal cell carcinoma, HTN, CAD, atopic dermatitis, moris's disease, CKD stage III PSHx: nephrectomy, ARIEL, bladder resecttion SHx: no tobacco etoh or illicit drug use FHx and ROS not obtainable d/t pt's mental status HPI: LINDA PERALTA is a 75 year old Female REASON FOR ADMISSION REVIEWED AND LISTED ABOVE UROLOGY CONSULT SUBJECTIVE: [01] 75-YEAR-OLD WHITE FEMALE ADMITTED THROUGH THE EMERGENCY ROOM NOTED IN THE ABOVE REASON FOR ADMISSION AND NOW SPECIFICALLY REFERRED UROLOGICALLY FOR URINARY RETENTION REQUIRING QUAN CATHETER DRAINAGE. PATIENT IS SOMEWHAT WEAK, SOMEWHAT VAGUE HISTORIAN AND ADDITIONAL INFORMATION OBTAINED FROM CHART AND NURSING. AFTER ADMISSION THE PATIENT APPARENTLY HAD DIFFICULTY VOIDING, AND QUAN CATHETER WAS INSERTED PER NURSING WITH REPORTED LARGE RESIDUAL URINE AMOUNT. URINE IS YELLOW CLEAR PER QUAN CATHETER CURRENTLY. CLINICAL HISTORY OBTAINED FROM THE PATIENT REVEALS THAT THE PATIENT DENIES ANY SIGNIFICANT PRIOR URINARY TRACT PROBLEMS, REPORTS SHE WAS VOIDING REASONABLY WELL, DOES RECALL OCCASIONAL URINARY TRACT INFECTIONS IN THE PAST INCLUDING RECENTLY. 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 THERE IS ALSO A CHART HISTORY OF RENAL CARCINOMA UNABLE TO DOCUMENT PER PATIENT HISTORY. SOLITARY KIDNEY CURRENTLY PER ULTRASOUND ADDITIONAL MEDICAL COMORBIDITIES LISTED AND REVIEWED INCLUDING SPINE ISSUES BEING FOLLOWED BY NEUROLOGY OBJECTIVE: [02] ON TODAY'S VISIT THE PATIENT IS LYING IN BED, FEELS WEAK, NO COMPLAINTS OF ANY DISCOMFORT, ABDOMEN SOFT BENIGN, QUAN CATHETER IN PLACE DRAINING YELLOW CLEAR URINE MODERATE RENAL INSUFFICIENCY WITH SERUM CREATININE OF 2.39, HEMOGLOBIN 11.2, ELEVATED WBC COUNT OF 27,500, URINE CULTURE IS NEGATIVE BUT UNCLEAR WHETHER PATIENT WAS ALREADY ON ANTIBIOTICS AT TIME URINE SAMPLE SENT CURRENTLY ON ERTAPENEM ANTIBIOTIC PROPHYLAXIS PER INFECTIOUS DISEASE ULTRASOUND SHOWS A SOLITARY RIGHT KIDNEY WITH A REPORTED COMPLEX CYSTIC LESION CT ABDOMEN WITHOUT CONTRAST CONFIRMS A HYPOECHOIC PROBABLE CYST LIKE LESION WITH SOME CALCIFICATIONS NOT CLEARLY A SOLID TUMOR CURRENTLY ON COUMADIN ANTICOAGULATION PROPHYLAXIS ASSESSMENT: [03] ACUTE URINARY RETENTION, SOLITARY KIDNEY, COMPLEX CYSTIC LESION WITHIN RIGHT KIDNEY, HISTORY OF URINARY TRACT INFECTION PLAN: 1. [04] CURRENTLY WE WILL PLACE THE PATIENT ON FLOMAX AND PLAN VOIDING TRIAL AND QUAN CATHETER REMOVAL OVER THE NEXT 2-3 DAYS RENAL INSUFFICIENCY WITH ELEVATED SERUM CREATININE OF 2.39, WOULD LIKE TO CONSIDER MRI KIDNEYS WITH AND WITHOUT CONTRAST BUT WE WILL NEED TO CHECK WITH RADIOLOGY IF CONTRAST CAN BE ADMINISTERED WITH ELEVATED SERUM CREATININE OTHERWISE CONTINUE SUPPORTIVE CARE THANK YOU FOR ALLOWING US TO PARTICIPATE IN THE PATIENT'S MANAGEMENT AND WILL FOLLOW ALONG UROLOGICALLY Allergies: ciprofloxacin: Rash penicillins: Rash Objective: Objective Information: T PRBPSpO2 [id number]/8593% Date/Time05/04 14: 14: 14: 14: 14:39 Range(36.2C - 36.7C ) (71 - 93 ) (16 - 18 ) (139 - 156 )/ (85 - 92 ) (92% - 97% ) Pain reported at 05/04 8:26: 0 = None ---- [facility] and [facility] ----- [facility] 2:00 [id number] May 04, 2020 6:00 [id number] May 03, 2020 10:00 [id number] The Intake and Output Totals for the last 24 hours are: [facility] [id number] ---Intake--- IV Fluids Infusion: 1200 mL Infusion: 1200 mL Infusion: 1200 mL Infusion: 1200 mL Infusion: 1200 mL Infusion: 1200 mL Infusion: 836 mL Infusion: 836 mL Infusion: 836 mL Infusion: 836 mL Infusion: 836 mL Infusion: 836 mL IV Piggybacks: 200 mL IV Piggybacks: 200 mL ---Output--- Urine External Catheter: 100 mL External Catheter: 100 mL Intermittent Catheterization - Urethral: 3200 mL Intake Output IV Fluids 2236 mL Urine 3300 mL Medications: Medications: ANTI-INFECTIVES: 1. Ertapenem IV Piggy Back: 0.5 gram(s) IntraVenous Piggyback Every 24 Hours CARDIOVASCULAR AGENTS: 1. Nitroglycerin SubLingual: 0.4 mg SubLingual Every 5 Minutes PRN 2. hydrALAZINE (APRESOLINE) Injectable: 5 mg IntraVenous Push Every 6 Hours PRN CENTRAL NERVOUS SYSTEM AGENTS: 1. Acetaminophen: 650 mg Oral Every 4 Hours PRN 2. Morphine Injectable: 1 mg IntraVenous Push Every 4 Hours PRN 3. Ondansetron Injectable: 4 mg IntraVenous Push Every 4 Hours PRN COAGULATION MODIFIERS: 1. Warfarin: 2.5 mg Oral Daily GASTROINTESTINAL AGENTS: 1. Magnesium Hydroxide -Al Hydrox -Simethicone Oral Liquid: 30 mL Oral Every 4 Hours PRN 2. Pantoprazole Injectable: 40 mg IntraVenous Push Every 24 Hours HORMONES/HORMONE MODIFIERS: 1. Hydrocortisone Na Succinate Injectable: 25 mg IntraVenous Push Every 12 Hours METABOLIC AGENTS: 1. Allopurinol: 200 mg Oral Every 24 Hours 2. Atorvastatin: 10 mg Oral Daily MISCELLANEOUS AGENTS: 1. Sevelamer Carbonate: 800 mg Oral 3 Times a Day With Meals NUTRITIONAL PRODUCTS: 1. Potassium Chloride Extended Release: 40 mEq Oral Daily TOPICAL AGENTS: 1. Menthol 0.44% - Zinc Oxide 20.625% Topical: 1 application(s) Topical 3 Times a Day 2. Fluticasone 50 microgram/ Nasal Inhalation: 1 spray(s) Each Nostril Daily Conditional Medication Orders -------- 1. Perflutren Lipid Microsphere (Activated) 1.3 mL / NaCL 0.9% T.V. 10 mL Injectable: 0.5 mL IntraVenous Push Once Currently Suspended Medications -------- 1. Fludrocortisone: 0.1 mg Oral Daily 2. Hydrocortisone: 10 mg Oral Daily 3. Hydrocortisone: 20 mg Oral Daily 1800 Recent Lab Results: Results: I have reviewed these laboratory results: PT + INR, Plasma Trending View [id number] 05:26:00 03-May-2020 10:50:00 Prothrombin Time, Oxksoc93.5 H 33.4 H International Normalized Ratio, Plasma2.3 H 2.8 H Complete Blood Count 04-May-2020 05:26:00 ResultValue White Blood Cell Count 22.3 H Red Blood Cell Count 3.82 L HGB 11.2 L HCT 34.4 L MCV 90 MCHC 32.6 PLT 382 RDW-CV 15.9 H Basic Metabolic Panel 04-May-2020 05:26:00 ResultValue Glucose, Serum 90 NA 137 K 3.6 CL 101 Bicarbonate, Serum 27 Anion Gap, Serum 13 BUN 79 H CREAT 2.39 H GFR-Non 20 A GFR- 24 A Calcium, Serum 9.8 Urinalysis with Culture if Indicated 03-May-2020 11:12:00 ResultValue Color, Urine STRAW Reference Range: STRAW,YELLOW Appearance, Urine CLEAR Specific [place], Urine 1.008 pH, Urine 6.0 Protein, Urine NEGATIVE Glucose, Urine NEGATIVE Blood, Urine SMALL(1+) A Ketones, Urine NEGATIVE Bilirubin, Urine NEGATIVE Urobilinogen, Urine <2.0 Nitrite, Urine NEGATIVE Leukocyte Esterase, Urine SMALL (1+) A Urinalysis, Microscopic 03-May-2020 11:12:00 ResultValue White Cells 7 A Red Blood Cells 9 A Epithelial Cells, Squamous 2 Mucous 1+ Culture, Urine 03-May-2020 11:12:00 ResultValue Culture, Urine NO GROWTH Radiology Results: Results: Impression: Mild compression deformities of several thoracic vertebral bodies without edema or retropulsion. There is no central canal stenosis in the thoracic region. Multilevel lumbar spondylosis as detailed. Extensive edema within the posterior paraspinous soft tissues particularly surrounding bilateral L4-L5 facets. Partially visualized edema within the presacral soft tissues, also noted on prior CT abdomen and pelvis. MRI T Spine without Contrast [May 04 2020 1:47PM] Impression: Mild compression deformities of several thoracic vertebral bodies without edema or retropulsion. There is no central canal stenosis in the thoracic region. Multilevel lumbar spondylosis as detailed. Extensive edema within the posterior paraspinous soft tissues particularly surrounding bilateral L4-L5 facets. Partially visualized edema within the presacral soft tissues, also noted on prior CT abdomen and pelvis. MRI L Spine without Contrast [May 04 2020 1:47PM] Impression: 1 to 15% stenosis right internal carotid artery. 1 to 15% stenosis left internal carotid artery. Blood flow is antegrade in the right vertebral artery. Blood flow is antegrade in the left vertebral artery. If clinically indicated we could repeat the study in 1 year. Ultrasound Carotid Bilateral Duplex [May 03 2020 8:00PM] Impression: Chest 1. Small to moderate left pleural effusion and small right pleural effusion with mild right consolidative opacities. Age-indeterminate wedge compression deformity of the T10 vertebral body with less than 25% height loss. 2. Limited evaluation without the administration of intravenous contrast. Abdomen-Pelvis 1. Solitary right kidney with a nonspecific hypodensity and calcified lesion as seen on prior ultrasound, not fully evaluated on the current noncontrast exam. Contrast a cross-sectional imaging is recommended for evaluation when clinically appropriate. 2. Mild presacral and lateral body wall soft tissue edema, correlate with volume status. 3. Air in the urinary bladder, correlate with recent intervention or correlate with urinalysis if there is concern for infection. 4. Additional findings as above. CT Chest Abdomen Pelvis without Contrast [May 03 2020 10:24AM] Impression: CT Abdomen and Pelvis without Contrast [May 02 2020 4:41PM] Impression: 1. Lower lung airspace disease greater on the left. Xray Chest 2 View PA + Lateral [May 02 2020 1:50PM] Conclusion: CONCLUSIONS: 1. The left ventricular systolic function is normal with a 60-65% estimated ejection fraction. 2. Spectral Doppler shows an impaired relaxation pattern of left ventricular diastolic filling. 3. Mild aortic valve stenosis. 4. There is moderate aortic valve cusp calcification. 5. Mild to moderately elevated pulmonary artery pressure. QUANTITATIVE DATA SUMMARY: 2D MEASUREMENTS: Normal Ranges: Ao Root d: 2.70 cm (2.0-3.7cm) LAs: 3.20 cm (2.7-4.0cm) IVSd: 1.44 cm (0.6-1.1cm) LVPWd: 1.34 cm (0.6-1.1cm) LVIDd: 2.51 cm (3.9-5.9cm) LVIDs: 1.97 cm LV Mass Index: 61.5 g/m2 LV % FS 21.5 % LA VOLUME: Normal Ranges: LA Volume Index: 32.1 ml/m2 RA VOLUME BY A/L METHOD: Normal Ranges: RA Vol A4C: 45.7 ml (8.3-19.5ml) RA Vol Index A4C: 25.4 ml/m2 RA Area A4C: 16.4 cm2 RA [place] A4C: 5.0 cm M-MODE MEASUREMENTS: Normal Ranges: Ao Root: 3.00 cm (2.0-3.7cm) AoV Exc: 1.20 cm (1.5-2.5cm) LAs: 3.00 cm (2.7-4.0cm) AORTA MEASUREMENTS: Normal Ranges: AoV Exc: 1.20 cm (1.5-2.5cm) LV SYSTOLIC FUNCTION BY 2D PLANIMETRY (MOD): Normal Ranges: EF-A4C View: 56.0 % (>55%) EF-A2C View: 57.4 % EF-Biplane: 55.9 % LV DIASTOLIC FUNCTION: Normal Ranges: MV Peak E: 0.65 m/s (0.7-1.2 m/s) MV Peak A: 1.32 m/s (0.42-0.7 m/s) E/A Ratio: 0.49 (1.0-2.2) MV e' 0.07 m/s (>8.0) MV lateral e' 0.06 m/s MV medial e' 0.07 m/s E/e' Ratio: 9.29 (<8.0) a' 0.12 m/s MITRAL VALVE: Normal Ranges: MV Vmax: 0.58 m/s (<1.3m/s) MV peak P.3 mmHg (<5mmHg) MV DT: 232 msec (150-240msec) AORTIC VALVE: Normal Ranges: AoV Mean P.0 mmHg (1.7-11.5mmHg) LVOT Max Tegan: 1.09 m/s (<1.1m/s) AoV VTI: 34.40 cm (18-25cm) LVOT VTI: 22.80 cm LVOT Diameter: 1.70 cm (1.8-2.4cm) AoV Area, VTI: 1.50 cm2 (2.5-5.5cm2) AoV Dimensionless Index: 0.66 RIGHT VENTRICLE: RV 1 3.7 cm RV 2 2.8 cm RV 3 6.3 cm TAPSE: 18.7 mm RV s' 0.24 m/s TRICUSPID VALVE/RVSP: Normal Ranges: Peak TR Velocity: 3.09 m/s RV Syst Pressure: 41.2 mmHg (< 30mmHg) IVC Diam: 1.40 cm PULMONIC VALVE: Normal Ranges: PV Accel Time: 95 msec (>120ms) PV Max Tegan: 1.2 m/s (0.6-0.9m/s) PV Max P.2 mmHg [id number] Tremayne Mcleod MD Electronically signed on 05/02/2020 at 1:08:29 PM Final Echocardiogram [May 02 2020 1:08PM] Impression: No evidence of hydronephrosis. Nonobstructing calculus at the upper pole. Complex cyst with calcification given hypodensity at the level of the renal hilum for which nonemergent CT would be recommended for further evaluation. Ultrasound Renal Bilateral [May 02 2020 12:57PM] Consult Status: Consult Order ID: [id number] Problem List: Admitting Dx: Hypercalcemia: Additional Dx: Change in mental status: Onset Date: 04-May-2020 Electronic Signatures: Alvin Sawyer) (Signed 04-May-2020 17:33) Authored: Service, History of Present Illness, Allergies, Objective, Assessment/Recommendatio ns, Note Completion Last Updated: 04-May-2020 17:33 by Alvin Sawyer) [facility] Daily Progress Note-Infectio us Diseaseon 05-04-2020 Daily Progress Note-Infectious Disease Service: Infectious Disease History of Present Illness: History Present Illness: HPI: LINDA PERALTA is a 75 year old Female HPI Patient was transferred for hypercalcemia. Pt had recent UTI with citrobacter and was recently treated at another hospital. ID currently consulted for possible aspiration pneumonia. UA is still mildly positive. CT with mild consolidative opacity in the RML. +ANGELA PMHx: DVT/PE on warfarin, renal cell carcinoma, HTN, CAD, atopic dermatitis, moris's disease, CKD stage III PSHx: nephrectomy, ARIEL, bladder resecttion SHx: no tobacco etoh or illicit drug use FHx and ROS not obtainable d/t pt's mental status Less nausea today, eating soup. Physical Exam: General: Patient appears in no acute distress, cooperative Skin: no new rashes or erythema or induration HEENT: EOMI, MMM, Neck is supple Heart: S1 S2 Lungs: bilaterally clear to auscultation Abdomen: soft, ND, NTTP, +BS Extrem:+pulses, no calf pain, no asymmetry of the upper or lower extremities Neuro exam: CN II-XII intact Labs: I have reviewed all lab results by electronic record, including most recent CBC, metabolic panel, and pertinent abnormalities were addressed from an infectious disease perspective. WBC trends are being monitored. Radiology: I have reviewed imaging results per electronic record and most pertinent abnormalities are being addressed from an infectious disease standpoint. Assessment: RML/RLL aspiration pneumonitis - she is vomiting. No increased O2 requirements or shortness of breath. Doubt pneumonia UTI - per MR, citrobacter. Seems to be better but still some evidence of UTI nausea hypercalcemia ANGELA Plan: Changed to renal dosed Invanz x 2 more days and stop on Monday aspiration precautions Vitamin D, PTH within normal limit Elevated pro BNP noted Metabolic encephalopathy seems polyfactorial Subjective Data: LINDA PERALTA is a 75 year old Female who is Hospital Day # 3. Objective Data: Objective Information: T PRBPSpO2 [id number]/8593% Date/Time05/04 14: 14: 14: 14: 14:39 Range(36.2C - 36.3C ) (71 - 93 ) (18 - 18 ) (139 - 156 )/ (85 - 90 ) (92% - 97% ) Pain reported at 05/04 8:26: 0 = None ---- Intake and Output ----- Mn/Dy/Year TimeIntakeOutputNet May 04, 2020 2:00 [id number] May 04, 2020 6:00 [id number] May 03, 2020 10:00 [id number] The Intake and Output Totals for the last 24 hours are: IntakeOutputNet [id number] Recent Lab Results: Results: CBC: 05/04/2020 05:26 \ Hgb / \ 11.2 L / WBC Plt 22.3 H 382 / Hct \ / 34.4 L \ RBC: 3.82 L MCV: 90 BMP: 05/04/2020 05:26 NA+ Cl- BUN / 137 101 79 H / -------- Glucose --- 90 K+ HCO3- Creat \ 3.6 27 2.39 H \ Calcium : 9.8 Anion Gap : 13 Coagulation: 05/04/2020 05:26 PT / 27.5 H / -------< INR < 2.3 H PTT\ \ Assessment and Plan: Code Status: Code StatusDNAR with Added Limitations Electronic Signatures: Di Estrada () (Signed 04-May-2020 19:38) Authored: Service, History of Present Illness, Subjective Data, Objective Data, Assessment and Plan, Note Completion Last Updated: 04-May-2020 19:38 by Di Estrada () Normal [facility] Daily Progress Note-Medicine on 05-04-2020 Daily Progress Note-Medicine Service: Medicine Subjective Data: LINDA PERALTA is a 75 year old Female who is Hospital Day # 3. Patient was laying in bed overall feeling little bit better but still has bilateral leg weakness developed urinary retention has a Quan catheter denies any chest pain no abdominal pain. Objective Data: Objective Information: T PRBPSpO2 Value36.26799950/9097% Date/Time05/04 8: 8: 8: 8: 8:26 Range(36.2C - 36.9C ) (71 - 93 ) (16 - 18 ) (139 - 162 )/ (89 - 95 ) (92% - 97% ) Highest temp of 36.9 C was recorded at 05/03 14:24 Pain reported at 05/04 8:26: 0 = None ---- Intake and Output ----- Mn[facility]Dy[facility] May 04, 2020 6:00 [id number] May 03, 2020 10:00 [id number] May 03, 2020 2:00 [id number] The Intake and Output Totals for the last 24 hours are: IntakeOutputNet [id number] Physical Exam by System: Constitutional: Well developed, awake/alert/oriented x3, no distress, alert and cooperative Respiratory/Thorax: Diminished in the bases no wheezing Cardiovascular: normal S 1and S 2 Gastrointestinal: Positive bowel sounds soft nontender Musculoskeletal: ROM intact, no joint swelling, normal strength Extremities: +1-2 edema upper and lower extremity Neurological: alert and oriented x3, intact senses, motor, normal strength Psychological: Appropriate mood and behavior Medication: Medications: Continuous Medications -------- 1. Sodium Chloride 0.45% with Potassium CL 20 mEq Premix Fluid: 1000 mL IntraVenous Scheduled Medications -------- 1. Allopurinol: 200 mg Oral Every 24 Hours 2. Atorvastatin: 10 mg Oral Daily 3. Ertapenem IV Piggy Back: 0.5 gram(s) IntraVenous Piggyback Every 24 Hours 4. Fluticasone 50 microgram/ Nasal Inhalation: 1 spray(s) Each Nostril Daily 5. Furosemide Injectable: 40 mg IntraVenous Push 2 Times a Day 6. Hydrocortisone Na Succinate Injectable: 25 mg IntraVenous Push Every 12 Hours 7. Menthol 0.44% - Zinc Oxide 20.625% Topical: 1 application(s) Topical 3 Times a Day 8. Pantoprazole Injectable: 40 mg IntraVenous Push Every 24 Hours 9. Potassium Chloride Extended Release: 40 mEq Oral Daily 10. Sevelamer Carbonate: 800 mg Oral 3 Times a Day With Meals 11. Warfarin: 2.5 mg Oral Daily PRN Medications -------- 1. Acetaminophen: 650 mg Oral Every 4 Hours 2. hydrALAZINE (APRESOLINE) Injectable: 5 mg IntraVenous Push Every 6 Hours 3. Magnesium Hydroxide -Al Hydrox -Simethicone Oral Liquid: 30 mL Oral Every 4 Hours 4. Morphine Injectable: 1 mg IntraVenous Push Every 4 Hours 5. Nitroglycerin SubLingual: 0.4 mg SubLingual Every 5 Minutes 6. Ondansetron Injectable: 4 mg IntraVenous Push Every 4 Hours Conditional Medication Orders -------- 1. Perflutren Lipid Microsphere (Activated) 1.3 mL / NaCL 0.9% T.V. 10 mL Injectable: 0.5 mL IntraVenous Push Once Currently Suspended Medications -------- 1. Fludrocortisone: 0.1 mg Oral Daily 2. Hydrocortisone: 10 mg Oral Daily 3. Hydrocortisone: 20 mg Oral Daily 1800 Recent Lab Results: Results: CBC: 05/04/2020 05:26 \ Hgb / \ 11.2 L / WBC Plt 22.3 H 382 / Hct \ / 34.4 L \ RBC: 3.82 L MCV: 90 BMP: 05/04/2020 05:26 NA+ Cl- BUN / 137 101 79 H / -------- Glucose --- 90 K+ HCO3- Creat \ 3.6 27 2.39 H \ Calcium : 9.8 Anion Gap : 13 Coagulation: 05/04/2020 05:26 PT / 27.5 H / -------< INR < 2.3 H PTT\ \ Radiology Results: Results: Impression: 1 to 15% stenosis right internal carotid artery. 1 to 15% stenosis left internal carotid artery. Blood flow is antegrade in the right vertebral artery. Blood flow is antegrade in the left vertebral artery. If clinically indicated we could repeat the study in 1 year. Ultrasound Carotid Bilateral Duplex [May 03 2020 8:00PM] Impression: Chest 1. Small to moderate left pleural effusion and small right pleural effusion with mild right consolidative opacities. Age-indeterminate wedge compression deformity of the T10 vertebral body with less than 25% height loss. 2. Limited evaluation without the administration of intravenous contrast. Abdomen-Pelvis 1. Solitary right kidney with a nonspecific hypodensity and calcified lesion as seen on prior ultrasound, not fully evaluated on the current noncontrast exam. Contrast a cross-sectional imaging is recommended for evaluation when clinically appropriate. 2. Mild presacral and lateral body wall soft tissue edema, correlate with volume status. 3. Air in the urinary bladder, correlate with recent intervention or correlate with urinalysis if there is concern for infection. 4. Additional findings as above. CT Chest Abdomen Pelvis without Contrast [May 03 2020 10:24AM] Assessment and Plan: Code Status: Code StatusDNAR with Added Limitations Impression 1: Acute kidney injury/hypercalcemia/hyp eruricemia/hypokalemia Plan for Impression 1: Vitamin D, PTH within normal limit, had renal ultrasound and CAT scan of the abdomen without contrast, seen by nephrology appreciate input on IV fluid and IV Lasix calcium level improved, on allopurinol check uric acid in a.m. Add potassium replacement daily Seen by endocrinology agree with above management Impression 2: Acute diastolic CHF/bilateral pleural effusion/anasarca Plan for Impression 2: Elevated pro BNP, echocardiogram results reviewed with upper and lower extremity swelling on IV Lasix Impression 3: Adrenal insufficiency on chronic hydrocortisone Plan for Impression 3: With reported nausea vomiting today we will switch to IV hydrocortisone Impression 4: Metabolic encephalopathy Plan for Impression 4: Multifactorial related to acute kidney injury hypercalcemia pneumonia UA pending rule out UTI patient IV antibiotics started today on meropenem, seen by neurology appreciate input for EEG carotid ultrasound Impression 5: Pneumonia/leukocytosis Plan for Impression 5: On IV meropenem To be seen by infectious disease Blood cultures negative Impression 6: History of DVT/PE Plan for Impression 6: IVC filter seen on imaging studies, on Coumadin INR therapeutic, check INR daily Impression 7: Acute urinary retention/back pain/bilateral leg weakness Plan for Impression 7: Status post Quan catheter consult urology, start lumbar and thoracic MRI rule out cord compression Electronic Signatures: Nani Stanley) (Signed 04-May-2020 12:20) Authored: Service, Subjective Data, Objective Data, Assessment and Plan, Note Completion Last Updated: 04-May-2020 12:20 by Nani Stanley) Normal [facility] Daily Progress Note-Nephrolo gyon 05-04-2020 Daily Progress Note-Nephrology Service: Nephrology Subjective Data: LINDA PERALTA is a 75 year old Female who is Hospital Day # 3. renal function stable, remains on fluids, appetite decent but doesn't like the food, feeling better. Objective Data: Objective Information: T PRBPSpO2 [id number]/8593% Date/Time05/04 14:393 14: 14:393/15 14: 14:39 Range(36.2C - 36.7C ) (71 - 93 ) (16 - 18 ) (139 - 156 )/ (85 - 92 ) (92% - 97% ) Pain reported at 05/04 8:26: 0 = None ---- Intake and Output ----- Mn/Dy/Year [facility]Output[facility] May 04, 2020 2:00 [id number] May 04, 2020 6:00 [id number] May 03, 2020 10:00 [id number] The Intake and Output Totals for the last 24 hours are: IntakeOutputNet [id number]\ Constitutional: Alert, in no acute distress HEENT: NC/AT, anicteric Lungs: CTAB, non-labored respirations Heart: RRR, no murmur Abdomen: soft, NT, ND Ext: no cyanosis, + peripheral edema Neuro: Alert, follows commands Medication: Medications: Continuous Medications -------- No continuous medications are active Scheduled Medications -------- 1. Allopurinol: 200 mg Oral Every 24 Hours 2. Atorvastatin: 10 mg Oral Daily 3. Ertapenem IV Piggy Back: 0.5 gram(s) IntraVenous Piggyback Every 24 Hours 4. Fluticasone 50 microgram/ Nasal Inhalation: 1 spray(s) Each Nostril Daily 5. Hydrocortisone Na Succinate Injectable: 25 mg IntraVenous Push Every 12 Hours 6. Menthol 0.44% - Zinc Oxide 20.625% Topical: 1 application(s) Topical 3 Times a Day 7. Pantoprazole Injectable: 40 mg IntraVenous Push Every 24 Hours 8. Potassium Chloride Extended Release: 40 mEq Oral Daily 9. Sevelamer Carbonate: 800 mg Oral 3 Times a Day With Meals 10. Warfarin: 2.5 mg Oral Daily PRN Medications -------- 1. Acetaminophen: 650 mg Oral Every 4 Hours 2. hydrALAZINE (APRESOLINE) Injectable: 5 mg IntraVenous Push Every 6 Hours 3. Magnesium Hydroxide -Al Hydrox -Simethicone Oral Liquid: 30 mL Oral Every 4 Hours 4. Morphine Injectable: 1 mg IntraVenous Push Every 4 Hours 5. Nitroglycerin SubLingual: 0.4 mg SubLingual Every 5 Minutes 6. Ondansetron Injectable: 4 mg IntraVenous Push Every 4 Hours Conditional Medication Orders -------- 1. Perflutren Lipid Microsphere (Activated) 1.3 mL / NaCL 0.9% T.V. 10 mL Injectable: 0.5 mL IntraVenous Push Once Currently Suspended Medications -------- 1. Fludrocortisone: 0.1 mg Oral Daily 2. Hydrocortisone: 10 mg Oral Daily 3. Hydrocortisone: 20 mg Oral Daily 1800 Recent Lab Results: Results: CBC: 05/04/2020 05:26 \ Hgb / \ 11.2 L / WBC Plt 22.3 H 382 / Hct \ / 34.4 L \ RBC: 3.82 L MCV: 90 BMP: 05/04/2020 05:26 NA+ Cl- BUN / 137 101 79 H / -------- Glucose --- 90 K+ HCO3- Creat \ 3.6 27 2.39 H \ Calcium : 9.8 Anion Gap : 13 Coagulation: 05/04/2020 05:26 PT / 27.5 H / -------< INR < 2.3 H PTT\ \ Assessment and Plan: Code Status: Code StatusDNAR with Added Limitations Assessment: LINDA PERALTA is a 75 year old Female w/ history s/f HTN, CAD, moris's disease, solitary kidney c/b RCC s/p partial nephrectomy, DVT/PE who was initially at [facility] for [facility], hypercalcemia and hypotension now transferred here. 1. ANGELA on CKD: previously hypotensive at [facility], now hypertensive, also CRS as pt is volume overloaded on exam vs. crystal induced (hypercalcemic, hyperphosphatemic, hyperuricemic), not on any nephrotoxic medications, not rhabdomyolysis (nml CK even though has high phos and uric acid), does have risk factors for CKD due to donating LT kidney hence has RT solitary kidney c/b RCC s/p RT partial nephrectomy 2. Hypercalcemia/hyperphosp hatemia: c/f hyperparathyroidism (primary or secondary though would expect low phos pt has low kidney function so decreasing phos clearance) vs. elevated Vit d 1,25 vs. paraproteinemia, has nml Vit D 33, PTH wnl 19 3. Hyperuricemia: has nml CK, unlikely related to TLS (has high phos but would also expect hyperkalemia though this could be affected w/ pt on florinef and likely hypocalcemia), not on thiazides, can be seen in sarcoidosis, hyperparathyroidism, hypothyroidism 4. HTN: could be due to medications (on florinef, hydrocortisone) or increased salt load from IVFs 5. Adrenal insufficiency: on florinef and hydrocortisone Plan: - stopping IVFs, encourage PO - continue lasix, decreasing frequency to QD from BID - replete K PRN - checking uric acid and phos tomorrow AM - PTHrp and Vit D 1,25 and SPEP pending - continue allopurinol 200 mg QD Electronic Signatures: Leigh Billy) (Signed 04-May-2020 15:19) Authored: Service, Subjective Data, Objective Data, Assessment and Plan, Note Completion Last Updated: 04-May-2020 15:19 by Leigh Billy) Normal [facility] Daily Progress Note-Neurolog yon 05-04-2020 Daily Progress Note-Neurology Service: Neurology Subjective Data: LINDA PERALTA is a 75 year old Female who is Hospital Day # 3. The patient examined feeling weak all over Overall intake output She is on Maalox did not help. She did not want Zofran or Phenergan Patient feeling better today Weakness in the legs continues hemorrhoid the cervical, thoracic and lumbar spine showed multilevel disc disease and osteoarthritis. Multilevel pression deformities in the thoracic spine without any significant stenosis Serum calcium is better. Objective Data: Objective Information: T PRBPSpO2 [id number]/8593% Date/Time05/04 14: 14: 14: 14: 14:39 Range(36.2C - 36.7C ) (71 - 93 ) (16 - 18 ) (139 - 156 )/ (85 - 92 ) (92% - 97% ) Pain reported at 05/04 8:26: 0 = None ---- Intake and Output ----- Mn/Dy/Year TimeIntakeOutputNet May 04, 2020 2:00 [id number] May 04, 2020 6:00 [id number] May 03, 2020 10:00 [id number] The Intake and Output Totals for the last 24 hours are: IntakeOutputNet [phone] Physical Exam by System: Neurological: The patient is awakened, had generalized weakness Patient is in no distress There is no jerking There are no involuntary movements Vision is clear Speech is clear Rehab to work with the patient Strength is well-maintained No new problem Medication: Medications: Continuous Medications -------- No continuous medications are active Scheduled Medications -------- 1. Allopurinol: 200 mg Oral Every 24 Hours 2. Atorvastatin: 10 mg Oral Daily 3. Ertapenem IV Piggy Back: 0.5 gram(s) IntraVenous Piggyback Every 24 Hours 4. Fluticasone 50 microgram/ Nasal Inhalation: 1 spray(s) Each Nostril Daily 5. Hydrocortisone Na Succinate Injectable: 25 mg IntraVenous Push Every 12 Hours 6. Menthol 0.44% - Zinc Oxide 20.625% Topical: 1 application(s) Topical 3 Times a Day 7. Pantoprazole Injectable: 40 mg IntraVenous Push Every 24 Hours 8. Potassium Chloride Extended Release: 40 mEq Oral Daily 9. Sevelamer Carbonate: 800 mg Oral 3 Times a Day With Meals 10. Warfarin: 2.5 mg Oral Daily PRN Medications -------- 1. Acetaminophen: 650 mg Oral Every 4 Hours 2. hydrALAZINE (APRESOLINE) Injectable: 5 mg IntraVenous Push Every 6 Hours 3. Magnesium Hydroxide -Al Hydrox -Simethicone Oral Liquid: 30 mL Oral Every 4 Hours 4. Morphine Injectable: 1 mg IntraVenous Push Every 4 Hours 5. Nitroglycerin SubLingual: 0.4 mg SubLingual Every 5 Minutes 6. Ondansetron Injectable: 4 mg IntraVenous Push Every 4 Hours Conditional Medication Orders -------- 1. Perflutren Lipid Microsphere (Activated) 1.3 mL / NaCL 0.9% T.V. 10 mL Injectable: 0.5 mL IntraVenous Push Once Currently Suspended Medications -------- 1. Fludrocortisone: 0.1 mg Oral Daily 2. Hydrocortisone: 10 mg Oral Daily 3. Hydrocortisone: 20 mg Oral Daily 1800 Recent Lab Results: Results: CBC: 05/04/2020 05:26 \ Hgb / \ 11.2 L / WBC Plt 22.3 H 382 / Hct \ / 34.4 L \ RBC: 3.82 L MCV: 90 BMP: 05/04/2020 05:26 NA+ Cl- BUN / 137 101 79 H / -------- Glucose --- 90 K+ HCO3- Creat \ 3.6 27 2.39 H \ Calcium : 9.8 Anion Gap : 13 Coagulation: 05/04/2020 05:26 PT / 27.5 H / -------< INR < 2.3 H PTT\ \ I have reviewed these laboratory results: PT + INR, Plasma 04-May-2020 05:26:00 ResultValue Prothrombin Time, Plasma 27.5 H International Normalized Ratio, Plasma 2.3 H Complete Blood Count 04-May-2020 05:26:00 ResultValue White Blood Cell Count 22.3 H Red Blood Cell Count 3.82 L HGB 11.2 L HCT 34.4 L MCV 90 MCHC 32.6 PLT 382 RDW-CV 15.9 H Basic Metabolic Panel 04-May-2020 05:26:00 ResultValue Glucose, Serum 90 NA 137 K 3.6 CL 101 Bicarbonate, Serum 27 Anion Gap, Serum 13 BUN 79 H CREAT 2.39 H GFR-Non 20 A GFR- 24 A Calcium, Serum 9.8 Creatine Kinase, Level 04-May-2020 05:26:00 ResultValue Creatine Kinase, Level 51 Radiology Results: Results: Impression: Mild compression deformities of several thoracic vertebral bodies without edema or retropulsion. There is no central canal stenosis in the thoracic region. Multilevel lumbar spondylosis as detailed. Extensive edema within the posterior paraspinous soft tissues particularly surrounding bilateral L4-L5 facets. Partially visualized edema within the presacral soft tissues, also noted on prior CT abdomen and pelvis. MRI T Spine without Contrast [May 04 2020 1:47PM] Impression: Mild compression deformities of several thoracic vertebral bodies without edema or retropulsion. There is no central canal stenosis in the thoracic region. Multilevel lumbar spondylosis as detailed. Extensive edema within the posterior paraspinous soft tissues particularly surrounding bilateral L4-L5 facets. Partially visualized edema within the presacral soft tissues, also noted on prior CT abdomen and pelvis. MRI L Spine without Contrast [May 04 2020 1:47PM] Impression: 1 to 15% stenosis right internal carotid artery. 1 to 15% stenosis left internal carotid artery. Blood flow is antegrade in the right vertebral artery. Blood flow is antegrade in the left vertebral artery. If clinically indicated we could repeat the study in 1 year. Ultrasound Carotid Bilateral Duplex [May 03 2020 8:00PM] Impression: Chest 1. Small to moderate left pleural effusion and small right pleural effusion with mild right consolidative opacities. Age-indeterminate wedge compression deformity of the T10 vertebral body with less than 25% height loss. 2. Limited evaluation without the administration of intravenous contrast. Abdomen-Pelvis 1. Solitary right kidney with a nonspecific hypodensity and calcified lesion as seen on prior ultrasound, not fully evaluated on the current noncontrast exam. Contrast a cross-sectional imaging is recommended for evaluation when clinically appropriate. 2. Mild presacral and lateral body wall soft tissue edema, correlate with volume status. 3. Air in the urinary bladder, correlate with recent intervention or correlate with urinalysis if there is concern for infection. 4. Additional findings as above. CT Chest Abdomen Pelvis without Contrast [May 03 2020 10:24AM] Assessment and Plan: Admitting Dx: Hypercalcemia: Entered Date: 02-May-2020 02:09 Additional Dx: Change in mental status: Onset Date: 04-May-2020, Entered Date: 04-May-2020 11:21 Code Status: Code StatusDNAR with Added Limitations Assessment: The patient had episode of change in the mental status probably metabolic: She has a minimal psychomotor slowing History of gait ataxia and falls she needs 1 person assist to ambulate her Change of peripheral neuropathy probably uremic Patient is admitted here for the B12 and vitamin D deficiency in the past adnexa urinary tract infection recently could have made her mental status. 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 Sarcoidosis History of Moris's disease Gout 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 Hyperlipidemia Atopic dermatitis has been treated Lower lung airway disease Aortic valve cusp calcification mild to moderate her She is on warfarin for the DVT, pulmonary emboli Elevated pulmonary artery pressure Recommendations EEGOrdered Folic acid level normal Continue with the physical therapy 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 Therapy Orthostatic blood pressures i MRI of the spine did not show high-grade stenosis, patient has a multilevel disc disease and spondylosis Varying degrees of compression fractures thoracic Ultrasound carotid arteriesFeel 1 to 15% stenosis Electronic Signatures: Vicky Boyd) (Signed 04-May-2020 16:25) Authored: Service, Subjective Data, Objective Data, Assessment and Plan, Note Completion Last Updated: 04-May-2020 16:25 by Vicky Boyd) Normal [facility] Discharge Planning [id number] 0 3- Discharge Planning Note2 Discharge Planning: Planned Dispositionskilled/rehab /extended care [facility] [place] of Choice Explainedyes Visit [facility] ([facility]urg) Is the Patient Being Discharged on an Opioidno Anticipated Discharge [id number] Discharge Planning 05/04/2020 1229 [facility] PATIENT WAS TRANSFERRED FROM [facility] TO [facility] ON MAY 01. PER DR. STANLEY, PATIENT WAS AT [facility] FOR 9 DAYS BEFORE SHE TRANSFERRED TO [facility]. PATIENT'S DX: HYPERCALCEMIA, CHANGED MENTAL STATUS, ANGELA, PNEUMONIA, URINARY RETENTION AND LEUKOCYSTOSIS. PT HAS BEEN ORDERED TO EVALUATE. I MET WITH THE PATIENT WHO STATES SHE LIVES WITH HER . AICHA, THE RN CARING FOR THE PATIENT, STATES THAT THE IS IN [facility] AND HAS CA WITH METS. THE PATIENT STATES SHE IS INDEPENDENT WITH ADLS. THE PATIENT CAN COOK, BUT HER DAUGHTER DOES THE CLEANING AND LAUNDRY. PATIENT DOES HAVE A WALKER. DAUGHTER WILL TAKE TO MD APPOINTMENTS. THE PATIENT STATES THAT SHE HAS HHC WITH [facility] AND HER PREFERENCE IS TO DC HOME AND CONTINUE SERVICES WITH [facility]. OLY, THE PCN, IS AWARE. [facility] WILL CONTINUE TO FOLLOW. TALIA JAMES RN 05/04/20 2:43 pcn- Notified by CHRISTOPHER-talia that patient was previously active with [facility]. Provided home care list to from [facility] directory that includes agencies that are within [facility], patients insurance, meets patients medical needs, and in discharge zip code that patient prefers, and identifies each agencies [facility] star rating. Resumption of care referral submitted to [facility] and is currently under review. will await final d/c orders. SHANE Romero 05/05/2020 0950 [facility] PT/OT STILL NEEDS TO EVALUATE PATIENT. AICHA, THE RN CARING FOR THE PATIENT, STATES THAT THE WAS TO DC YESTERDAY OR TODAY FROM [facility] PER THE DAUGHTER. SHE IS HELPING CARE FOR HIM AND PLANS TO BE THERE WHEN THE MOM DC. AICHA IS AWARE I WILL TALK WITH THE DAUGHTER AND PATIENT AGAIN ONCE PT/OT EVALUTES. DR. SOUTH IS AWARE THAT PATIENT IS ACTIVE WITH HHC AND AT THIS TIME, DC PLAN IS HOME WITH CONTINUED SERVICES WITH HHC. AICHA ALSO INFORMED ME THAT PATIENT'S POTASSIUM WAS 2.9 TODAY AND PO SUPPLEMENTS ARE BEING GIVEN. PATIENT STILL HAS EDEMA FROM [place]. PATIENT IS ON IV LASIX WELL. [facility] WILL CONTINUE TO FOLLOW. TALIA JAMES RN 05/05/2020 1523 [facility] PT [facility] IS 11. I WENT TO REVISIT PATIENT AND SHE IS SLEEPING. I CALLED THE DAUGHTER AND POA, SOULEYMANE LAZAR. SOULEYMANE STATES THAT HER DAD IS STILL IN [facility] AND IS NOT BEING DC TODAY AND MAY BE THERE A FEW MORE DAYS. THERAPY EVALUATE DISCUSSED WITH SOULEYMANE AND SHE STATES THAT SHE FEELS THE PATIENT NEEDS TO GO TO REHAB AT [place] SHE IS ABLE TO BE MORE INDEPENDENT WITH MAYBE A 1 PERSON ASSIST. SHE HAS REQUESTED [facility] SHE HAS BEEN THERE BEFORE AND [address] [facility] [facility] [place]. DR. SOUTH IS AWARE OF DC PLAN. OLY, THE PCN, IS AWARE WELL AND WILL SEND TO [facility] FOR THEM TO EVALUATE TO SEE IF PATIENT IS APPROPRIATE FOR REHAB AND THEN PRECERT WILL BE NEEDED. [facility] WILL CONTINUE TO FOLLOW. TALIA JAMES RN 05/05/20 3:51 pcn- per talia-tcc pt. will need snf setting on d/c, she has spoken to dtr. who is requesting [facility] TCU/snf unit as she has been there in the past, [facility] [place], [facility]. SHANE Romero 05/05/20 4:15 pcn-spoke with admissions at [facility] who states they are full at this time and have no beds available. referral sent to dtr's second choice [facility] [place]. spoke with dtrAlaina comer to provide update. Oly Coles, SHANE 05/06/2020 1351 [facility] [address] R[address]. SOUTH AND HE STATES THAT PATIENT POTASSIUM IS STILL 2.9 TODAY AND SHE IS RECEIVING POTASSIUM REPLACEMENT. DR. SOUTH IS AWARE PRECERT HAS BEEN STARTED AND HE WOULD BE MADE AWARE WHEN OBTAINED. HE STATED UNDERSTANDING AND STATES PATIENT IS A PD IN 1-2 DAYS. TALIA JAMES RN 05/07/20 12:50 pcn-[facility] [place] [facility] received ins. precert and able to accept pt. per urology, no d/c today/voiding trial. informed facility. SHANE Romero 05/07/[address] SOUTH AND HE IS AWARE PRECERT HAS BEEN OBTAINED. PT NEEDS A VOIDING TRIAL AND THEN NEED FINAL OK TO DC FROM DR KIRKLAND. DAMIR RN, UPDATED, WILL CONTINUE TO FOLLOW, MADAN ALEXIS, AWARE PT MAY STILL DC TODAY. Anette MONDRAGON, RN, TCC 05/07/[address] OVALLES AND HE WILL HOLD DC TODAY, WILL PLAN DC FOR TOMORROW HE DETERMINES VOIDING TRIAL RESULTS. MADAN ALEXIS, UPDATED. Anette MONDRAGON, RN, TCC 05/08/20 2:05 pcn-per [facility] [place] they have received ins. precert and able to accept pt. pt. will d/c this date to [facility] [place] [facility] at 5:30 pm via [facility] wheelchair van. spoke with pt. and dtr. who are aware and in agreement to transport and cost of transportation. SHANE Romero Assessment: Discharge Planning Assessment [id number] Primary Contact Name and NumberSouleymane Lazar - [phone] (daughter)(1) Stated Reason for Admissionpatient states I fell. (1) Arrived Fromhospital (1) Readmission Within the Last 30 Daysno previous admission in last 30 days Lives Withspouse(1) Living Arrangementshouse(1) Equipment Currently Used at [facility] Resource/Environmental Concernsnone(1) Anticipated Transition [place] with help/services Services Anticipated at [facility](1) Anticipated Changes Related to Illnessnone Equipment Needed After Dischargenone Anticipated Discharge Facility/Level of Care [facility] - Resumed Visit [facility] Ne[facility] from [facility] Electronic Signatures: Anette Roy (COOR) (Signed 07-May-2020 14:36) Authored: Discharge Planning Oly Leon (PCN) (Signed 08-May-2020 14:07) Authored: Discharge Planning Emmie James (COOR) (Signed 06-May-2020 13:59) Authored: Discharge Planning, Assessment Magnus Cloey (COOR) (Signed 08-May-2020 14:08) Authored: Discharge Planning, Assessment Last Updated: 08-May-2020 14:08 by Magnus Coley (COOR) References: 1. Data Referenced From Patient Profile - Adult v2 02-May-2020 00:48 [facility] [facility] E[facility] ADDONon 05-04-2020 ADDON CONFIRMATION REQUEST REC'D Normal [facility] Comment on above: Performed By: #### P R12 #### [facility] [address] [place] [address] NR MRI L-SPINE WOon 05-05-19 21 NR MRI L-SPINE WO Patient Name: LINDA PERALTA STUDY: MRI T-SPINE WO; MRI L-SPINE WO; 05/04/2020 1:26 pm INDICATION: Urinary retention bilateral leg weakness. COMPARISON: CT chest abdomen and pelvis from 05/03/2020 ACCESSION NUMBER(S): [id number]; [id number] ORDERING CLINICIAN: NANI STANLEY TECHNIQUE: Sagittal T1 and T2 and axial T2 and T1 weighted MR images of the thoracic and lumbar spine were obtained. FINDINGS: Thoracic spine: There is mild exaggeration of thoracic kyphosis. There is subtle superior endplate deformity of T4 with a prominent Schmorl's node without significant loss of vertebral height. There is no edema. There is mild compression deformity of T6 with less than 20% loss of vertebral height, there is no edema or retropulsion. There is a superior endplate deformity of T10 with a prominent Schmorl's node. There is approximately 25% loss of central vertebral height without retropulsion or edema. There is mild desiccation of several intervertebral discs with patchy areas of focal fatty marrow replacement. There is very minimal anterolisthesis of T5 over T6. The cervical cord demonstrates normal signal and morphology. Mild facet hypertrophy is noted at multiple levels, most significantly in the lower thoracic region without significant central canal stenosis. There is no no neural foraminal narrowing. Small perineural sleeve cysts are noted within several neural foramina. There is patchy edema within the subcutaneous soft tissues in the midline in lower thoracic region In lumbar region, there is minimal anterolisthesis of L3 over L4. There is a large Schmorl's node involving superior endplate of L5 with mild loss of central vertebral height. There is no retropulsion. There are chronic degenerative marrow signal changes at multiple levels. Very minimal at edema is noted adjacent to superior endplate of L5. There is desiccation and mild degeneration of several intervertebral discs. The conus terminates appropriately at L2. The cauda equina nerve roots are grossly unremarkable. 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 At L5-S1, there is circumferential disc bulge with bilateral facet hypertrophy. Small annular fissure is noted along the right posterolateral margin of the disc. There is mild encroachment upon bilateral lateral recesses without central canal stenosis or neural foraminal narrowing. At L4-L5, there is a circumferential disc bulge with bilateral facet and ligamentum flavum hypertrophy. There is minimal encroachment upon bilateral neural foramina with minimal central canal narrowing. At L3-L4, there is posterior disc bulge with bilateral facet and ligamentum flavum hypertrophy. There are small bilateral facet joint effusions. There is mild central canal stenosis without neural foraminal narrowing. At L2-L3, there is posterior disc bulge with bilateral facet and ligamentum flavum hypertrophy. There is mild central canal stenosis without neural foraminal narrowing. Marked hypertrophy of the right-sided facet joint is noted with encroachment upon the right paraspinous soft tissues. At L1-L2, there is posterior disc bulge with bilateral facet hypertrophy without central canal stenosis or neural foraminal narrowing. At T12-L1, there is no central canal stenosis or neural foraminal narrowing. Note is made of bilateral facet hypertrophy. There is patchy edema within bilateral posterior paraspinous soft tissues particularly surrounding L4-L5 facet joints. Diffuse edema is noted within the subcutaneous soft tissues of the midline back from T11-L4 region, nonspecific finding. There is extensive edema within the presacral fat which was also noted on prior CT scan IMPRESSION: Mild compression deformities of several thoracic vertebral bodies without edema or retropulsion. There is no central canal stenosis in the thoracic region. Multilevel lumbar spondylosis as detailed. Extensive edema within the posterior paraspinous soft tissues particularly surrounding bilateral L4-L5 facets. Partially visualized edema within the presacral soft tissues, also noted on prior CT abdomen and pelvis. Electronically signed by: BRADLEY BECERRA MD [facility] NR MRI T-SPINE WOon 05-05-19 21 NR MRI T-SPINE WO Patient Name: LINDA PERALTA STUDY: MRI T-SPINE WO; MRI L-SPINE WO; 05/04/2020 1:26 pm INDICATION: Urinary retention bilateral leg weakness. COMPARISON: CT chest abdomen and pelvis from 05/03/2020 ACCESSION NUMBER(S): [id number]; [id number] ORDERING CLINICIAN: NANI STANLEY TECHNIQUE: Sagittal T1 and T2 and axial T2 and T1 weighted MR images of the thoracic and lumbar spine were obtained. FINDINGS: Thoracic spine: There is mild exaggeration of thoracic kyphosis. There is subtle superior endplate deformity of T4 with a prominent Schmorl's node without significant loss of vertebral height. There is no edema. There is mild compression deformity of T6 with less than 20% loss of vertebral height, there is no edema or retropulsion. There is a superior endplate deformity of T10 with a prominent Schmorl's node. There is approximately 25% loss of central vertebral height without retropulsion or edema. There is mild desiccation of several intervertebral discs with patchy areas of focal fatty marrow replacement. There is very minimal anterolisthesis of T5 over T6. The cervical cord demonstrates normal signal and morphology. Mild facet hypertrophy is noted at multiple levels, most significantly in the lower thoracic region without significant central canal stenosis. There is no no neural foraminal narrowing. Small perineural sleeve cysts are noted within several neural foramina. There is patchy edema within the subcutaneous soft tissues in the midline in lower thoracic region In lumbar region, there is minimal anterolisthesis of L3 over L4. There is a large Schmorl's node involving superior endplate of L5 with mild loss of central vertebral height. There is no retropulsion. There are chronic degenerative marrow signal changes at multiple levels. Very minimal at edema is noted adjacent to superior endplate of L5. There is desiccation and mild degeneration of several intervertebral discs. The conus terminates appropriately at L2. The cauda equina nerve roots are grossly unremarkable. 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 At L5-S1, there is circumferential disc bulge with bilateral facet hypertrophy. Small annular fissure is noted along the right posterolateral margin of the disc. There is mild encroachment upon bilateral lateral recesses without central canal stenosis or neural foraminal narrowing. At L4-L5, there is a circumferential disc bulge with bilateral facet and ligamentum flavum hypertrophy. There is minimal encroachment upon bilateral neural foramina with minimal central canal narrowing. At L3-L4, there is posterior disc bulge with bilateral facet and ligamentum flavum hypertrophy. There are small bilateral facet joint effusions. There is mild central canal stenosis without neural foraminal narrowing. At L2-L3, there is posterior disc bulge with bilateral facet and ligamentum flavum hypertrophy. There is mild central canal stenosis without neural foraminal narrowing. Marked hypertrophy of the right-sided facet joint is noted with encroachment upon the right paraspinous soft tissues. At L1-L2, there is posterior disc bulge with bilateral facet hypertrophy without central canal stenosis or neural foraminal narrowing. At T12-L1, there is no central canal stenosis or neural foraminal narrowing. Note is made of bilateral facet hypertrophy. There is patchy edema within bilateral posterior paraspinous soft tissues particularly surrounding L4-L5 facet joints. Diffuse edema is noted within the subcutaneous soft tissues of the midline back from T11-L4 region, nonspecific finding. There is extensive edema within the presacral fat which was also noted on prior CT scan IMPRESSION: Mild compression deformities of several thoracic vertebral bodies without edema or retropulsion. There is no central canal stenosis in the thoracic region. Multilevel lumbar spondylosis as detailed. Extensive edema within the posterior paraspinous soft tissues particularly surrounding bilateral L4-L5 facets. Partially visualized edema within the presacral soft tissues, also noted on prior CT abdomen and pelvis. Electronically signed by: BRADLEY BECERRA MD Normal [facility] PROTEIN ELECTROPHORESIS + IM MUNOFIXATION, SERUMon 05-04-2020 GAMMA GLOBULIN 0.9 g/dL Normal 0.5 - 1.4 [facility] Comment on above: Performed By: #### I FE2 ####[facility] [place], [place] [id number] [place] [address] Albumin [Mass/Vol] 3.1 g/dL Low 3.4 - 5.0 [facility] Comment on above: Performed By: #### I FE2 ####[place] [address] [place], [place] [id number] [place] [address] ALPHA 1 GLOBULIN 0.3 g/dL Normal 0.2 - 0.6 [facility] Comment on above: Performed By: #### I FE2 ####[id number] [place] [address] ALPHA 2 GLOBULIN 0.6 g/dL Normal 0.4 - 1.1 [facility] Comment on above: Performed By: #### I FE2 ####[facility] [place] [id number] [place] [address] BETA GLOBULIN 0.6 g/dL Normal 0.5 - 1.2 [facility] Comment on above: Performed By: #### I FE2 ####[id number] [place] [address] PT/INRon 05-04-2020 INR Coag (PPP) [Relative time] 2.3 {INR} High 0.9 - 1.1 [facility] Comment on above: Performed By: #### C MP #### [address] [id number] PT Coag (PPP) [Time] 27.5 s High 10.1 - 13.3 [facility] Comment on above: Performed By: #### C MP #### [address] [id number] BLOOD CULTURE, BACTERIALon 0 05-03-2020 BLOOD CULTURE, BACTERIAL PATIENT: LINDA PERALTA LOCATION: [address]#: [id number] : 41 AGE: SEX: F ORDERED BY: NANI STANLEY SOURCE: Blood COLLECTED: 05/03/20 10:49 ANTIBIOTICS AT [facility].: RECEIVED : 05/03/20 21:14 SITE: R E S U L T S BLOOD CULTURE, BACTERIAL FINAL 05/08/20 21:42 No Growth at 1 days No Growth at 2 days No Growth at 3 days No Growth at 4 days NO GROWTH - FINAL REPORT Normal [facility] Comment on above: Performed By: #### C A #### [address] [id number] BLOOD CULTURE, BACTERIAL PATIENT: LINDA PERALTA LOCATION: [address]#: [id number] : 41 AGE: SEX: F ORDERED BY: NANI STANLEY SOURCE: Blood COLLECTED: 05/03/20 10:48 ANTIBIOTICS AT [facility].: RECEIVED : 05/03/20 21:08 SITE: R E S U L T S BLOOD CULTURE, BACTERIAL FINAL 05/08/20 21:42 No Growth at 1 days No Growth at 2 days No Growth at 3 days No Growth at 4 days NO GROWTH - FINAL REPORT Normal [facility] Comment on above: Performed By: #### C A #### [address] [id number] CBCon 05-03-2020 Erythrocyte distribution width (RBC) [Ratio] 16.0 % High 11.5 - 14.5 [facility] Comment on above: Performed By: #### C MP #### [address] [id number] Hematocrit (Bld) [Volume fraction] 33.8 % Low 36.0 - 46.0 [facility] Comment on above: Performed By: #### C MP #### [address] [id number] Hemoglobin (Bld) [Mass/Vol] 11.1 g/dL Low 12.0 - 16.0 [facility] Comment on above: Performed By: #### C MP #### [address] [id number] MCHC (RBC) [Mass/Vol] 32.8 g/dL Normal 32.0 - 36.0 [facility] Comment on above: Performed By: #### C MP #### [address] [id number] MCV (RBC) [Entitic vol] 89 fL Normal 80 - 100 [facility] Comment on above: Performed By: #### C MP #### [address] [id number] Platelets (Bld) [#/Vol] 405 10*3/uL Normal 150 - 450 [facility] Comment on above: Performed By: #### C MP #### [address] [id number] RBC (Bld) [#/Vol] 3.81 x10E12/L Low 4.00 - 5.20 [facility] Comment on above: Performed By: #### C MP #### [address] [id number] WBC (Bld) [#/Vol] 22.9 10*3/uL High 4.4 - 11.3 [facility] Comment on above: Performed By: #### C MP #### [address] [id number] COMPREHENSIVE PANELon 2020 Albumin [Mass/Vol] 2.7 g/dL Low 3.4 - 5.0 [facility] Comment on above: Performed By: #### C MP #### [address] [id number] ALP [Catalytic activity/Vol] 67 U/L Normal 33 - 136 [facility] Comment on above: Performed By: #### C MP #### [address] [id number] ALT [Catalytic activity/Vol] 48 U/L High 7 - 45 [facility] Comment on above: Result Comment: Liz ents treated with Sulfasalazine may generate falsely decreased results for ALT. Performed By: #### C MP #### [address] [id number] Anion gap [Moles/Vol] 14 mmol/L Normal 10 - 20 [facility] Comment on above: Performed By: #### C MP #### [address] [id number] AST [Catalytic activity/Vol] 16 U/L Normal 9 - 39 [facility] Comment on above: Performed By: #### C MP #### [address] [id number] Bilirubin [Mass/Vol] 0.6 mg/dL Normal 0.0 - 1.2 [facility] Comment on above: Performed By: #### C MP #### [address] [id number] Calcium [Mass/Vol] 10.8 mg/dL High 8.6 - 10.3 [facility] Comment on above: Performed By: #### C MP #### [address] [id number] Chloride [Moles/Vol] 101 mmol/L Normal 98 - 107 [facility] Comment on above: Performed By: #### C MP #### [address] [id number] Creatinine [Mass/Vol] 2.39 mg/dL High 0.50 - 1.05 [facility] Comment on above: Performed By: #### C MP #### [address] [id number] GFR- AM. 24 mL/min/1.73m2 Abnormal >60 [facility] Comment on above: Result Comment: CALC ULATIONS OF ESTIMATED GFR ARE PERFORMED USING THE MDRD STUDY EQUATION FOR THE IDMS-TRACEABLE CREATININE METHODS. CLIN CHEM 2007;53:766-72 Performed By: #### C MP #### [address] [id number] GFR-NON AM. 20 mL/min/1.73m2 Abnormal >60 [facility] Comment on above: Performed By: #### C MP #### [address] [id number] Glucose [Mass/Vol] 93 mg/dL Normal 74 - 99 [facility] Comment on above: Performed By: #### C MP #### [address] [id number] HCO3 (Bld) [Moles/Vol] 26 mmol/L Normal 21 - 32 [facility] Comment on above: Performed By: #### C MP #### [address] [id number] Potassium [Moles/Vol] 3.3 mmol/L Low 3.5 - 5.3 [facility] Comment on above: Performed By: #### C MP #### [address] [id number] Protein [Mass/Vol] 4.8 g/dL Low 6.4 - 8.2 [facility] Comment on above: Performed By: #### C MP #### [address] [id number] Sodium [Moles/Vol] 138 mmol/L Normal 136 - 145 [facility] Comment on above: Performed By: #### C MP #### [address] [id number] Urea nitrogen [Mass/Vol] 86 mg/dL High 6 - 23 [facility] Comment on above: Performed By: #### C MP #### [address] [id number] CHEST ABDOMEN PELVIS WO C ONTRASTon 05-03-2020 CT CHEST ABDOMEN PELVIS WO CONTRAST Patient Name: LINDA PERALTA STUDY: CT CHEST ABDOMEN PELVIS WO CONTRAST; 05/03/2020 9:48 am INDICATION: pneumonia abnormal renal ultrasound hx of solitary kidney. COMPARISON: None. ACCESSION NUMBER(S): [id number] ORDERING CLINICIAN: NANI TSANLEY TECHNIQUE: CT of the chest, abdomen and pelvis was performed. Contiguous axial images were obtained at 3 mm slice thickness through the chest, abdomen and pelvis. Coronal and sagittal reconstructions at 3 mm slice thickness were performed. No intravenous or oral contrast agents were administered. FINDINGS: Please note that the study is limited without intravenous contrast. CHEST: LUNG/PLEURA/LARGE AIRWAYS: [id number] left and trace right pleural effusion. No pneumothorax. There is mild consolidative opacity in the lateral right midlung. VESSELS: Aorta and pulmonary arteries are normal caliber. Mild atherosclerotic changes are noted of the aorta and branching vessels. and coronary arteries HEART: The heart is mildly enlarged. No pericardial effusion MEDIASTINUM AND FIORELLA: No mediastinal, hilar or axillary lymph nodes are present. The esophagus is unremarkable. CHEST WALL AND LOWER NECK: Remote fracture deformity of the posterior 10th rib. There is mild anterior wedge compression deformity of the T10 vertebral body, uncertain chronicity. Otherwise, the chest wall is unremarkable. The lower neck is unremarkable. ABDOMEN: LIVER: The liver is unremarkable. BILE DUCTS: Bile ducts: Normal caliber. GALLBLADDER: Status post cholecystectomy. PANCREAS: The pancreas appears unremarkable. SPLEEN: There is splenic granuloma. The spleen is otherwise unremarkable. ADRENAL GLANDS: The left adrenal gland is not visualized. The right adrenal gland is unremarkable. KIDNEYS AND URETERS: There is a single right kidney. No evidence for hydronephrosis or nephroureterolithiasis. There is a vague hypodensity in the lateral aspect of the kidney with calcification and irregularity at the posterior interpolar aspect as seen on prior ultrasound a. These are nonspecific on this unenhanced CT. PELVIS: BLADDER: There is air in the urinary bladder, correlate with intervention. REPRODUCTIVE ORGANS: No pelvic masses. BOWEL: The stomach is unremarkable. The small and large bowel are normal in caliber and demonstrate no wall thickening. The appendix is not definitely visualized. There is however no pericecal stranding or fluid. VESSELS: The aorta and IVC are within normal limits. Note is made of a inferior vena cava filter. PERITONEUM/RETROPERITONE UM/LYMPH NODES: There is mild presacral and lateral body wall edema. There is no free or loculated fluid collection, no free intraperitoneal air. The retroperitoneum appears unremarkable. No enlarged mesenteric lymph nodes. ABDOMINAL WALL: There is a small fat containing ventral abdominal wall hernia with mild inflammatory fat stranding adjacent with no bowel involvement. Calcified body posterior to the left gluteal muscle. BONES: Age-indeterminate L5 compression fracture versus a prominent Schmorl's node. IMPRESSION: Chest 1. Small to moderate left pleural effusion and small right pleural effusion with mild right consolidative opacities. Age-indeterminate wedge compression deformity of the T10 vertebral body with less than 25% height loss. 2. Limited evaluation without the administration of intravenous contrast. Abdomen-Pelvis 1. Solitary right kidney with a nonspecific hypodensity and calcified lesion as seen on prior ultrasound, not fully evaluated on the current noncontrast exam. Contrast a cross-sectional imaging is recommended for evaluation when clinically appropriate. 2. Mild presacral and lateral body wall soft tissue edema, correlate with volume status. 3. Air in the urinary bladder, correlate with recent intervention or correlate with urinalysis if there is concern for infection. 4. Additional findings as above. Electronically signed by: JARED GALLARDO MD [facility] Consult - Neuroon 05-03-2020 Consult - Neuro Service: Consult: Consult requested by (Attending Name): Nani Stanley Reason: Altered mental status History of Present Illness: HPI: LINDA PERALTA is a 75 year old right-handed white woman transferred to this hospital on AprilMay 02, 2020 for endocrine evaluation. PT is a poor historian and there were few usable records transferred from OSH, the history is limited as such The patient has a history of falls about once a month for the last for 5 months. According to her she will feel weak in the legs and this patient will fall down about once a month. She felt faint for a second or 2. She did not lose bladder or bowel control. Patient history of sarcoidosis and enterocolitis thought to be the cause of hypercalcemia She was advised to continue the admitted for hypercalcemia The patient also has a history of Moris's disease Orthostatic hypotension She was on B12 and vitamin D supplementation in the past The family was worried about her memory issues Her daughter is coming to help her and her Per the patient on 04/22 she was admitted to the hospital for hypercalcemia. according to her she has had multiple interventions but they have been unsuccessful at correcting it. On admission the patient had acute kidney injury which was improving with volume resuscitation. decision made to transfer pt here for subspecialty evaluation. Dr Gregory reportedly agreed to consult. Pt had a UTI at the outside hospital- culture grew citrobacter, pt was put on antibiotic- unclear when course completed The patient has no current complaints other than fatigue and wanting to be out of the hospital PMHx: DVT/PE on warfarin, renal cell carcinoma, HTN, CAD, atopic dermatitis, moris's disease, CKD stage III PSHx: nephrectomy, ARIEL, bladder resecttion SHx: no tobacco etoh or illicit drug use FHx and ROS not obtainable d/t pt's mental status Allergies: ciprofloxacin: Rash penicillins: Rash Medications Prior to Admission: lactobacillus acidophilus-lactobacillu s casei oral delayed release capsule: 1 cap(s) orally once a day nitroglycerin 0.4 mg sublingual tablet: 1 tab(s) sublingual every 5 minutes, As Needed cholecalciferol 1000 intl units (25 mcg) oral tablet: 1 tab(s) orally once a day cyanocobalamin 1000 mcg oral tablet: 1 tab(s) orally once a day dupilumab: 300 milligram(s) subcutaneous every 2 weeks acetaminophen: 1000 milligram(s) orally every 6 hours, As Needed fluticasone nasal: 1 spray(s) nasal once a day (at bedtime) hydrocortisone 10 mg oral tablet: 1 tab(s) orally once a day hydrocortisone 20 mg oral tablet: 1 tab(s) orally once a day Calmoseptine 0.44%-20.6% topical ointment: Apply topically to affected area 2 times a day, As Needed warfarin 2.5 mg oral tablet: 1 tab(s) orally once a day atorvastatin 10 mg oral tablet: 1 tab(s) orally once a day (at bedtime) Florinef Acetate 0.1 mg oral tablet: 1 tab(s) orally once a day. Allergies: ciprofloxacin: Rash penicillins: Rash Objective: Objective Information: T PRBPSpO2 [id number]% Date/Time05/02 19: 19: 19: 19: 19:16 Range(36.2C - 37.1C ) (85 - 95 ) (17 - 18 ) (141 - 183 )/ (83 - 110 ) (93% - 96% ) Highest temp of 37.1 C was recorded at 05/02 19:11 General Neurology: General Neurology Extensive Exam: All the peripheral pulsations are good. No bruits are heard over the eyeballs, head, neck, abdominal aorta, iliacs or the femorals. Heart is regular with normal heart sounds and no murmurs. There is no hepatosplenomegaly. Abdomen is soft and nontender. No sign of head or neck injury. On neurological exam, the patient is well oriented to the day, date, month and the year. She takes her time to answer questions. Speech is normal and higher cortical functions are mildly impaired for the patient's age. Both the pupils are equal and react well to light. Visual hackett, extraocular movements and the fundi are normal. The rest of the cranial nerves are within normal limits. The patient has normal muscle tone and normal muscle mass. No fasciculations or involuntary movements are seen. On Campbell testing, there is no pronation or drift. The power is normal in all the muscle groups. The deep tendon reflexes are hypoactive bilaterally and symmetrical. Both the plantar responses are flexor. The coordination is normal for the patient's age. No cortical release signs are seen. The patient's gait is mildly unsteady and she needs a 1 person assist to ambulate Patient has a decreased pinprick and temperature sensation below the knees and elbows bilaterally proprioception is intact. Patient has a decreased vibratory sensation in the distal extremities. Medications: Medications: Continuous Medications -------- 1. Sodium Chloride 0.45% Infusion: 1000 mL IntraVenous Scheduled Medications -------- 1. Allopurinol: 200 mg Oral Every 24 Hours 2. Atorvastatin: 10 mg Oral Daily 3. Calcitonin Injectable: 200 unit(s) IntraMuscular Daily 4. Fludrocortisone: 0.1 mg Oral Daily 5. Fluticasone 50 microgram/ Nasal Inhalation: 1 spray(s) Each Nostril Daily 6. Furosemide Injectable: 40 mg IntraVenous Push 2 Times a Day 7. Hydrocortisone: 10 mg Oral Daily 8. Hydrocortisone: 20 mg Oral Daily 1800 9. Menthol 0.44% - Zinc Oxide 20.625% Topical: 1 application(s) Topical 3 Times a Day 10. Sevelamer Carbonate: 800 mg Oral 3 Times a Day With Meals 11. Warfarin: 2.5 mg Oral Daily PRN Medications -------- 1. Acetaminophen: 650 mg Oral Every 4 Hours 2. hydrALAZINE (APRESOLINE) Injectable: 5 mg IntraVenous Push Every 6 Hours 3. Nitroglycerin SubLingual: 0.4 mg SubLingual Every 5 Minutes 4. Ondansetron Injectable: 4 mg IntraVenous Push Every 4 Hours Conditional Medication Orders -------- 1. Perflutren Lipid Microsphere (Activated) 1.3 mL / NaCL 0.9% T.V. 10 mL Injectable: 0.5 mL IntraVenous Push Once Recent Lab Results: Results: I have reviewed these laboratory results: RBC Morphology 02-May-2020 02:22:00 ResultValue Red Blood Cell Morphology SEE COMMENT NO SIGNIFICANT RBC ABNORMALITIES SEEN ON SMEAR REVIEW. Complete Blood Count + Differential 02-May-2020 02:22:00 ResultValue White Blood Cell Count 17.9 H Red Blood Cell Count 3.81 L HGB 11.2 L HCT 34.1 L MCV 90 MCHC 32.8 PLT 378 RDW-CV 15.7 H Immature Granulocytes % 5.6 H Differential Comment SEE MANUAL DIFF Comprehensive Metabolic Panel 02-May-2020 02:22:00 ResultValue Glucose, Serum 184 H NA 138 K 4.2 CL 101 Bicarbonate, Serum 26 Anion Gap, Serum 15 BUN 84 H CREAT 2.31 H GFR-Non 20 A GFR- 24 A Calcium, Serum 12.3 H ALB 3.0 L ALKP 79 T Pro 5.5 L T Bili 0.7 Alanine Aminotransferase, Serum 64 H Aspartate Transaminase, Serum 18 Reticulocyte Count 02-May-2020 02:22:00 ResultValue Retic % 1.4 Retic # 0.054 Retic-HB 37 Manual Differential Panel 02-May-2020 02:22:00 ResultValue % Seg Neutrophil 81.0 % Band Neutrophil 2.0 % Lymphocyte 6.0 % Monocyte 6.0 % Eosinophil 0.0 % Basophil 0.0 % Metamyelocyte 3.0 % Myelocyte 2.0 Absolute Neutrophil Count (ANC) 14.86 H Seg Neutrophil Count 14.50 H Band Neutrophil Count 0.36 Lymphocyte, Count 1.07 Monocyte, Count 1.07 H Eosinophil, Count 0.00 Basophil, Count 0.00 Metamyelocyte, Count 0.54 A Myelocyte, Count 0.36 A C Reactive Protein, Serum 02-May-2020 02:22:00 ResultValue C Reactive Protein, Serum 1.41 A Brain Natriuretic Peptide 02-May-2020 02:22:00 ResultValue Brain Natriuretic Peptide 1665 H Calcium, Ionized Level 02-May-2020 02:22:00 ResultValue Calcium, Ionized Level 1.71 H Creatine Kinase, Level 02-May-2020 02:22:00 ResultValue Creatine Kinase, Level 28 Lactate, Level 02-May-2020 02:22:00 ResultValue Lactate, Level 1.8 Magnesium, Serum 02-May-2020 02:22:00 ResultValue Magnesium, Serum 2.00 Osmolality, Serum 02-May-2020 02:22:00 ResultValue Osmolality, Serum 322 H Phosphorus, Serum 02-May-2020 02:22:00 ResultValue Phosphorus, Serum 6.4 H Prealbumin, Serum 02-May-2020 02:22:00 ResultValue Prealbumin, Serum 28.0 Uric Acid, Serum 02-May-2020 02:22:00 ResultValue Uric Acid, Serum 10.4 H Free Thyroxine, Serum 02-May-2020 02:22:00 ResultValue Free Thyroxine, Serum 1.30 H Thyroid Stimulating Hormone, Serum 02-May-2020 02:22:00 ResultValue Thyroid Stimulating Hormone, Serum 0.69 Vitamin D (25-Hydroxy), Level 02-May-2020 02:22:00 ResultValue Vitamin D (25-Hydroxy), Level 33 Coagulation Screen 02-May-2020 02:21:00 ResultValue Prothrombin Time, Plasma 28.4 H International Normalized Ratio, Plasma 2.4 H Activated Partial Thromboplastin Time 25 Radiology Results: Results: Impression: CT Abdomen and Pelvis without Contrast [May 02 2020 4:41PM] Impression: 1. Lower lung airspace disease greater on the left. Xray Chest 2 View PA + Lateral [May 02 2020 1:50PM] Conclusion: CONCLUSIONS: 1. The left ventricular systolic function is normal with a 60-65% estimated ejection fraction. 2. Spectral Doppler shows an impaired relaxation pattern of left ventricular diastolic filling. 3. Mild aortic valve stenosis. 4. There is moderate aortic valve cusp calcification. 5. Mild to moderately elevated pulmonary artery pressure. QUANTITATIVE DATA SUMMARY: 2D MEASUREMENTS: Normal Ranges: Ao Root d: 2.70 cm (2.0-3.7cm) LAs: 3.20 cm (2.7-4.0cm) IVSd: 1.44 cm (0.6-1.1cm) LVPWd: 1.34 cm (0.6-1.1cm) LVIDd: 2.51 cm (3.9-5.9cm) LVIDs: 1.97 cm LV Mass Index: 61.5 g/m2 LV % FS 21.5 % LA VOLUME: Normal Ranges: LA Volume Index: 32.1 ml/m2 RA VOLUME BY A/L METHOD: Normal Ranges: RA Vol A4C: 45.7 ml (8.3-19.5ml) RA Vol Index A4C: 25.4 ml/m2 RA Area A4C: 16.4 cm2 RA [place] A4C: 5.0 cm M-MODE MEASUREMENTS: Normal Ranges: Ao Root: 3.00 cm (2.0-3.7cm) AoV Exc: 1.20 cm (1.5-2.5cm) LAs: 3.00 cm (2.7-4.0cm) AORTA MEASUREMENTS: Normal Ranges: AoV Exc: 1.20 cm (1.5-2.5cm) LV SYSTOLIC FUNCTION BY 2D PLANIMETRY (MOD): Normal Ranges: EF-A4C View: 56.0 % (>55%) EF-A2C View: 57.4 % EF-Biplane: 55.9 % LV DIASTOLIC FUNCTION: Normal Ranges: MV Peak E: 0.65 m/s (0.7-1.2 m/s) MV Peak A: 1.32 m/s (0.42-0.7 m/s) E/A Ratio: 0.49 (1.0-2.2) MV e' 0.07 m/s (>8.0) MV lateral e' 0.06 m/s MV medial e' 0.07 m/s E/e' Ratio: 9.29 (<8.0) a' 0.12 m/s MITRAL VALVE: Normal Ranges: MV Vmax: 0.58 m/s (<1.3m/s) MV peak P.3 mmHg (<5mmHg) MV DT: 232 msec (150-240msec) AORTIC VALVE: Normal Ranges: AoV Mean P.0 mmHg (1.7-11.5mmHg) LVOT Max Tegan: 1.09 m/s (<1.1m/s) AoV VTI: 34.40 cm (18-25cm) LVOT VTI: 22.80 cm LVOT Diameter: 1.70 cm (1.8-2.4cm) AoV Area, VTI: 1.50 cm2 (2.5-5.5cm2) AoV Dimensionless Index: 0.66 RIGHT VENTRICLE: RV 1 3.7 cm RV 2 2.8 cm RV 3 6.3 cm TAPSE: 18.7 mm RV s' 0.24 m/s TRICUSPID VALVE/RVSP: Normal Ranges: Peak TR Velocity: 3.09 m/s RV Syst Pressure: 41.2 mmHg (< 30mmHg) IVC Diam: 1.40 cm PULMONIC VALVE: Normal Ranges: PV Accel Time: 95 msec (>120ms) PV Max Tegan: 1.2 m/s (0.6-0.9m/s) PV Max P.2 mmHg [id number] Tremayne Mcleod MD Electronically signed on 05/02/2020 at 1:08:29 PM Final Echocardiogram [May 02 2020 1:08PM] Impression: No evidence of hydronephrosis. Nonobstructing calculus at the upper pole. Complex cyst with calcification given hypodensity at the level of the renal hilum for which nonemergent CT would be recommended for further evaluation. Ultrasound Renal Bilateral [May 02 2020 12:57PM] Assessment/Recommendatio ns: The patient had episode of change in the mental status probably metabolic: She has a minimal psychomotor slowing History of gait ataxia and falls she needs 1 person assist to ambulate her Change of peripheral neuropathy probably uremic Patient is admitted here for the B12 and vitamin D deficiency in the past adnexa urinary tract infection recently could have made her mental status. 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 gout 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 Hyperlipidemia Atopic dermatitis has been treated Lower lung airway disease Aortic valve cusp calcification mild to moderate her She is on warfarin for the DVT, pulmonary emboli Elevated pulmonary artery pressure Recommendations EEG Check folic acid level Orthostatic blood pressures i Physical therapy Ultrasound carotid arteries You for the consult We will follow patient with you Consult Status: Consult Order ID: [id number] Electronic Signatures: Vicky Boyd) (Signed 02-May-2020 23:13) Authored: Service, History of Present Illness, Allergies, Objective, Assessment/Recommendatio ns, Note Completion Last Updated: 02-May-2020 23:13 by Vicky Boyd) [facility] Consult-Infectious Diseaseon 05-03-2020 Consult-Infectious Disease Service: Service: Infectious Disease Consult: Consult requested by (Attending Name): Nani Stanley Reason: pneumonia leukocytosis History of Present Illness: HPI: LINDA PERALTA is a 75 year old Female ID Consult: HPI Patient was transferred for hypercalcemia. Pt had recent UTI with citrobacter and was recently treated at another hospital. ID currently consulted for possible aspiration pneumonia. UA is still mildly positive. CT with mild consolidative opacity in the RML. +ANGELA PMHx: DVT/PE on warfarin, renal cell carcinoma, HTN, CAD, atopic dermatitis, moris's disease, CKD stage III PSHx: nephrectomy, ARIEL, bladder resecttion SHx: no tobacco etoh or illicit drug use FHx and ROS not obtainable d/t pt's mental status All past medical history, family history, allergies, and social history reviewed per medical records Review of Systems: All 14 review of systems were discussed with the patient and are negative other than as stated above Physical Exam: General: Patient appears in no acute distress, cooperative Skin: no new rashes or erythema or induration HEENT: EOMI, MMM, Neck is supple Heart: S1 S2 Lungs: bilaterally clear to auscultation Abdomen: soft, ND, NTTP, +BS Extrem:+pulses, no calf pain, no asymmetry of the upper or lower extremities Neuro exam: CN II-XII intact, facial expressions symmetrical bilaterally, no slurred speech Labs: I have reviewed all lab results by electronic record, including most recent CBC, metabolic panel, and pertinent abnormalities were addressed from an infectious disease perspective. WBC trends are being monitored. Radiology: I have reviewed imaging results per electronic record and most pertinent abnormalities are being addressed from an infectious disease standpoint. Assessment: RML/RLL aspiration pneumonitis - she is vomiting. No increased O2 requirements or shortness of breath. Doubt pneumonia UTI - per MR, citrobacter. Seems to be better but still some evidence of UTI nausea hypercalcemia ANGELA Plan: She is currently on Meropenem. Change to renal dosed Invanz x 2 more days and stop on Monday. aspiration precautions Endocrine work up in progress *. Allergies: ciprofloxacin: Rash penicillins: Rash Consult Status: Consult Order ID: [id number] Electronic Signatures: Di Estrada () (Signed 04-May-2020 06:05) Authored: Service, History of Present Illness, Allergies, Assessment/Recommendatio ns, Note Completion Last Updated: 04-May-2020 06:05 by Di Estrada () Normal [facility] Daily Progress Note-Medicine on 05-03-2020 Daily Progress Note-Medicine Service: Medicine Subjective Data: LINDA PERALTA is a 75 year old Female who is Hospital Day # 3. Patient laying in bed has fatigue denies any pain no chest pain or shortness of breath has nausea but no vomiting. Objective Data: Objective Information: T PRBPSpO2 [id number]/8596% Date/Time05/03 7:333 7: 7: 7: 7:33 Range(36.3C - 37.3C ) (94 - 95 ) (17 - 18 ) (132 - 176 )/ (85 - 106 ) (93% - 96% ) Highest temp of 37.3 C was recorded at 05/02 23:10 Pain reported at 05/03 10:44: 0 = None ---- Intake and Output ----- Mn/Dy/Year TimeIntakeOutputNet May 03, 2020 6:00 [id number] May 02, 2020 2:00 [id number] The Intake and Output Totals for the last 24 hours are: IntakeOutputNet [id number] Physical Exam by System: Constitutional: Well developed, awake/alert/oriented x3, no distress, alert and cooperative Respiratory/Thorax: Diminished in the bases no wheezing Cardiovascular: normal S 1and S 2 Gastrointestinal: Positive bowel sounds soft nontender Musculoskeletal: ROM intact, no joint swelling, normal strength Extremities: +1-2 edema upper and lower extremity Neurological: alert and oriented x3, intact senses, motor, normal strength Psychological: Appropriate mood and behavior Medication: Medications: Continuous Medications -------- 1. Sodium Chloride 0.45% Infusion: 1000 mL IntraVenous Scheduled Medications -------- 1. Allopurinol: 200 mg Oral Every 24 Hours 2. Atorvastatin: 10 mg Oral Daily 3. Fluticasone 50 microgram/ Nasal Inhalation: 1 spray(s) Each Nostril Daily 4. Furosemide Injectable: 40 mg IntraVenous Push 2 Times a Day 5. Hydrocortisone Na Succinate Injectable: 25 mg IntraVenous Push Every 12 Hours 6. Menthol 0.44% - Zinc Oxide 20.625% Topical: 1 application(s) Topical 3 Times a Day 7. Meropenem IV Piggy Back: 1 gram(s) IntraVenous Piggyback Every 12 Hours 8. Pantoprazole Injectable: 40 mg IntraVenous Push Every 24 Hours 9. Potassium Chloride Extended Release: 40 mEq Oral Daily 10. Sevelamer Carbonate: 800 mg Oral 3 Times a Day With Meals 11. Warfarin: 2.5 mg Oral Daily PRN Medications -------- 1. Acetaminophen: 650 mg Oral Every 4 Hours 2. hydrALAZINE (APRESOLINE) Injectable: 5 mg IntraVenous Push Every 6 Hours 3. Magnesium Hydroxide -Al Hydrox -Simethicone Oral Liquid: 30 mL Oral Every 4 Hours 4. Nitroglycerin SubLingual: 0.4 mg SubLingual Every 5 Minutes 5. Ondansetron Injectable: 4 mg IntraVenous Push Every 4 Hours Conditional Medication Orders -------- 1. Perflutren Lipid Microsphere (Activated) 1.3 mL / NaCL 0.9% T.V. 10 mL Injectable: 0.5 mL IntraVenous Push Once Currently Suspended Medications -------- 1. Fludrocortisone: 0.1 mg Oral Daily 2. Hydrocortisone: 10 mg Oral Daily 3. Hydrocortisone: 20 mg Oral Daily 1800 Recent Lab Results: Results: CBC: 05/03/2020 05:31 \ Hgb / \ 11.1 L / WBC Plt 22.9 H 405 / Hct \ / 33.8 L \ RBC: 3.81 L MCV: 89 CMP: 05/03/2020 05:31 NA+ Cl- BUN / 138 101 86 H / -------- Glucose --- 93 K+ HCO3- Creat \ 3.3 L 26 2.39 H \ \ T Bili / \ 0.6 / AST x ---- x ALT 16 x ---- x 48 H / Alk P \ / 67 \ Calcium : 10.8 H Anion Gap : 14 Albumin : 2.7 L T Protein : 4.8 L Coagulation: 05/03/2020 10:50 PT / 33.4 H / -------< INR < 2.8 H PTT\ \ Radiology Results: Results: Impression: Chest 1. Small to moderate left pleural effusion and small right pleural effusion with mild right consolidative opacities. Age-indeterminate wedge compression deformity of the T10 vertebral body with less than 25% height loss. 2. Limited evaluation without the administration of intravenous contrast. Abdomen-Pelvis 1. Solitary right kidney with a nonspecific hypodensity and calcified lesion as seen on prior ultrasound, not fully evaluated on the current noncontrast exam. Contrast a cross-sectional imaging is recommended for evaluation when clinically appropriate. 2. Mild presacral and lateral body wall soft tissue edema, correlate with volume status. 3. Air in the urinary bladder, correlate with recent intervention or correlate with urinalysis if there is concern for infection. 4. Additional findings as above. CT Chest Abdomen Pelvis without Contrast [May 03 2020 10:24AM] Impression: CT Abdomen and Pelvis without Contrast [May 02 2020 4:41PM] Impression: 1. Lower lung airspace disease greater on the left. Xray Chest 2 View PA + Lateral [May 02 2020 1:50PM] Conclusion: CONCLUSIONS: 1. The left ventricular systolic function is normal with a 60-65% estimated ejection fraction. 2. Spectral Doppler shows an impaired relaxation pattern of left ventricular diastolic filling. 3. Mild aortic valve stenosis. 4. There is moderate aortic valve cusp calcification. 5. Mild to moderately elevated pulmonary artery pressure. [id number] Tremayne Mcleod MD Electronically signed on 05/02/2020 at 1:08:29 PM Final Echocardiogram [May 02 2020 1:08PM] Impression: No evidence of hydronephrosis. Nonobstructing calculus at the upper pole. Complex cyst with calcification given hypodensity at the level of the renal hilum for which nonemergent CT would be recommended for further evaluation. Ultrasound Renal Bilateral [May 02 2020 12:57PM] Assessment and Plan: Code Status: Code StatusDNAR with Added Limitations Impression 1: Acute kidney injury/hypercalcemia/hyp eruricemia/hypokalemia Plan for Impression 1: Vitamin D PTH within normal limit, had renal ultrasound and CAT scan of the abdomen without contrast, seen by nephrology appreciate input on IV fluid and IV Lasix calcium level improved, on allopurinol check uric acid in a.m. Add potassium replacement daily Impression 2: Acute diastolic CHF/bilateral pleural effusion/anasarca Plan for Impression 2: Elevated proBNP, echocardiogram results reviewed with upper and lower extremity swelling on IV Lasix and IV fluid for potassium management Impression 3: Adrenal insufficiency on chronic hydrocortisone Plan for Impression 3: With reported nausea vomiting today we will switch to IV hydrocortisone Impression 4: Metabolic encephalopathy Plan for Impression 4: Multifactorial related to acute kidney injury hypercalcemia pneumonia UA pending rule out UTI patient IV antibiotics started today on meropenem, seen by neurology appreciate input for EEG carotid ultrasound Impression 5: Pneumonia/leukocytosis Plan for Impression 5: On IV meropenem check urine analysis Impression 6: History of DVT/PE Plan for Impression 6: IVC filter seen on imaging today, on Coumadin check INR daily Electronic Signatures: Nani Stanley) (Signed 03-May-2020 11:18) Authored: Service, Subjective Data, Objective Data, Assessment and Plan, Note Completion Last Updated: 03-May-2020 11:18 by Nani Stanley) [facility] Daily Progress Note-Nephrolo gray 05-03-2020 Daily Progress Note-Nephrology Service: Nephrology Subjective Data: LINDA PERALTA is a 75 year old Female who is Hospital Day # 3. renal function stable, Ca better, BP better. Objective Data: Objective Information: T PRBPSpO2 [id number]/8596% Date/Time05/03 7: 7: 7: 7: 7:33 Range(36.3C - 37.3C ) (94 - 95 ) (17 - 18 ) (132 - 176 )/ (85 - 106 ) (93% - 96% ) Highest temp of 37.3 C was recorded at 05/02 23:10 Pain reported at 05/03 10:44: 0 = None ---- Intake and Output ----- Mn/Dy/Year TimeIntakeOutputNet May 03, 2020 6:00 [id number] May 02, 2020 2:00 [id number] The Intake and Output Totals for the last 24 hours are: IntakeOutputNet [id number] Constitutional: Alert, in no acute distress HEENT: NC/AT, anicteric Lungs: CTAB, non-labored respirations Heart: RRR, no murmur Abdomen: soft, NT, ND Ext: no cyanosis, no peripheral edema Neuro: Alert, follows commands Medication: Medications: Continuous Medications -------- 1. Sodium Chloride 0.45% Infusion: 1000 mL IntraVenous Scheduled Medications -------- 1. Allopurinol: 200 mg Oral Every 24 Hours 2. Atorvastatin: 10 mg Oral Daily 3. Fluticasone 50 microgram/ Nasal Inhalation: 1 spray(s) Each Nostril Daily 4. Furosemide Injectable: 40 mg IntraVenous Push 2 Times a Day 5. Hydrocortisone Na Succinate Injectable: 25 mg IntraVenous Push Every 12 Hours 6. Menthol 0.44% - Zinc Oxide 20.625% Topical: 1 application(s) Topical 3 Times a Day 7. Meropenem IV Piggy Back: 1 gram(s) IntraVenous Piggyback Every 12 Hours 8. Pantoprazole Injectable: 40 mg IntraVenous Push Every 24 Hours 9. Potassium Chloride Extended Release: 40 mEq Oral Daily 10. Sevelamer Carbonate: 800 mg Oral 3 Times a Day With Meals 11. Warfarin: 2.5 mg Oral Daily PRN Medications -------- 1. Acetaminophen: 650 mg Oral Every 4 Hours 2. hydrALAZINE (APRESOLINE) Injectable: 5 mg IntraVenous Push Every 6 Hours 3. Magnesium Hydroxide -Al Hydrox -Simethicone Oral Liquid: 30 mL Oral Every 4 Hours 4. Nitroglycerin SubLingual: 0.4 mg SubLingual Every 5 Minutes 5. Ondansetron Injectable: 4 mg IntraVenous Push Every 4 Hours Conditional Medication Orders -------- 1. Perflutren Lipid Microsphere (Activated) 1.3 mL / NaCL 0.9% T.V. 10 mL Injectable: 0.5 mL IntraVenous Push Once Currently Suspended Medications -------- 1. Fludrocortisone: 0.1 mg Oral Daily 2. Hydrocortisone: 10 mg Oral Daily 3. Hydrocortisone: 20 mg Oral Daily 1800 Recent Lab Results: Results: CBC: 05/03/2020 05:31 \ Hgb / \ 11.1 L / WBC Plt 22.9 H 405 / Hct \ / 33.8 L \ RBC: 3.81 L MCV: 89 CMP: 05/03/2020 05:31 NA+ Cl- BUN / 138 101 86 H / -------- Glucose --- 93 K+ HCO3- Creat \ 3.3 L 26 2.39 H \ \ T Bili / \ 0.6 / AST x ---- x ALT 16 x ---- x 48 H / Alk P \ / 67 \ Calcium : 10.8 H Anion Gap : 14 Albumin : 2.7 L T Protein : 4.8 L Coagulation: 05/03/2020 10:50 PT / 33.4 H / -------< INR < 2.8 H PTT\ \ Assessment and Plan: Code Status: Code StatusDNAR with Added Limitations Assessment: LINDA PERALTA is a 75 year old Female w/ history s/f HTN, CAD, moris's disease, solitary kidney c/b RCC s/p partial nephrectomy, DVT/PE who was [facility], hypercalcemia and hypotension now transferred here. 1. ANGELA on CKD: previously hypotensive at [facility], now hypertensive, also CRS as pt is volume overloaded on exam vs. crystal induced (hypercalcemic, hyperphosphatemic, hyperuricemic), not on any nephrotoxic medications, not rhabdomyolysis (nml CK even though has high phos and uric acid), does have risk factors for CKD due to donating LT kidney hence has RT solitary kidney c/b RCC s/p RT partial nephrectomy 2. Hypercalcemia/hyperphosp hatemia: c/f hyperparathyroidism (primary or secondary though would expect low phos pt has low kidney function so decreasing phos clearance) vs. elevated Vit d 1,25 vs. paraproteinemia, has nml Vit D 33, PTH wnl 19 3. Hyperuricemia: has nml CK, unlikely related to TLS (has high phos but would also expect hyperkalemia though this could be affected w/ pt on florinef and likely hypocalcemia), not on thiazides, can be seen in sarcoidosis, hyperparathyroidism, hypothyroidism 4. HTN: could be due to medications (on florinef, hydrocortisone) or increased salt load from IVFs 5. Adrenal insufficiency Plan: - continue fluids 0.45 NS at 125 ml/hr for now to decrease salt load - continue lasix 40 mg IV BID - replete K - PTHrp and Vit D 1,25 and SPEP pending - continue allopurinol 200 mg QD Electronic Signatures: Leigh Billy) (Signed 03-May-2020 12:33) Authored: Service, Subjective Data, Objective Data, Assessment and Plan, Note Completion Last Updated: 03-May-2020 12:33 by Leigh Billy) [facility] Daily Progress Note-Neurolog yon 05-03-2020 Daily Progress Note-Neurology Service: Neurology Subjective Data: LINDA PERALTA is a 75 year old Female who is Hospital Day # 3. The patient examined feeling weak all over Overall intake output He is urinated Maalox did not help. She did not want Zofran or Phenergan. Objective Data: Objective Information: T PRBPSpO2 [id number]/9296% Date/Time05/03 19: 19: 19: 19: 19:16 Range(36.3C - 37.3C ) (89 - 95 ) (16 - 18 ) (132 - 162 )/ (85 - 95 ) (93% - 96% ) Highest temp of 37.3 C was recorded at 05/02 23:10 Pain reported at 05/03 10:44: 0 = None ---- Intake and Output ----- Mn/Dy/Year TimeIntakeOutputNet May 03, 2020 2:00 [id number] May 03, 2020 6:00 [id number] The Intake and Output Totals for the last 24 hours are: IntakeOutputNet [id number] Physical Exam by System: Neurological: The patient is awakened, had generalized weakness Patient is in no distress There is no jerking There are no involuntary movements Vision is clear Speech is clear Rehab to work with the patient Strength is well-maintained No new problem Medication: Medications: Continuous Medications -------- 1. Sodium Chloride 0.45% with Potassium CL 20 mEq Premix Fluid: 1000 mL IntraVenous Scheduled Medications -------- 1. Allopurinol: 200 mg Oral Every 24 Hours 2. Atorvastatin: 10 mg Oral Daily 3. Fluticasone 50 microgram/ Nasal Inhalation: 1 spray(s) Each Nostril Daily 4. Furosemide Injectable: 40 mg IntraVenous Push 2 Times a Day 5. Hydrocortisone Na Succinate Injectable: 25 mg IntraVenous Push Every 12 Hours 6. Menthol 0.44% - Zinc Oxide 20.625% Topical: 1 application(s) Topical 3 Times a Day 7. Meropenem IV Piggy Back: 1 gram(s) IntraVenous Piggyback Every 12 Hours 8. Pantoprazole Injectable: 40 mg IntraVenous Push Every 24 Hours 9. Potassium Chloride Extended Release: 40 mEq Oral Daily 10. Sevelamer Carbonate: 800 mg Oral 3 Times a Day With Meals 11. Warfarin: 2.5 mg Oral Daily PRN Medications -------- 1. Acetaminophen: 650 mg Oral Every 4 Hours 2. hydrALAZINE (APRESOLINE) Injectable: 5 mg IntraVenous Push Every 6 Hours 3. Magnesium Hydroxide -Al Hydrox -Simethicone Oral Liquid: 30 mL Oral Every 4 Hours 4. Nitroglycerin SubLingual: 0.4 mg SubLingual Every 5 Minutes 5. Ondansetron Injectable: 4 mg IntraVenous Push Every 4 Hours Conditional Medication Orders -------- 1. Perflutren Lipid Microsphere (Activated) 1.3 mL / NaCL 0.9% T.V. 10 mL Injectable: 0.5 mL IntraVenous Push Once Currently Suspended Medications -------- 1. Fludrocortisone: 0.1 mg Oral Daily 2. Hydrocortisone: 10 mg Oral Daily 3. Hydrocortisone: 20 mg Oral Daily 1800 Recent Lab Results: Results: CBC: 05/03/2020 05:31 \ Hgb / \ 11.1 L / WBC Plt 22.9 H 405 / Hct \ / 33.8 L \ RBC: 3.81 L MCV: 89 CMP: 05/03/2020 05:31 NA+ Cl- BUN / 138 101 86 H / -------- Glucose --- 93 K+ HCO3- Creat \ 3.3 L 26 2.39 H \ \ T Bili / \ 0.6 / AST x ---- x ALT 16 x ---- x 48 H / Alk P \ / 67 \ Calcium : 10.8 H Anion Gap : 14 Albumin : 2.7 L T Protein : 4.8 L Coagulation: 05/03/2020 10:50 PT / 33.4 H / -------< INR < 2.8 H PTT\ \ I have reviewed these laboratory results: Urinalysis with Culture if Indicated 03-May-2020 11:12:00 ResultValue Color, Urine STRAW Reference Range: STRAW,YELLOW Appearance, Urine CLEAR Specific [place], Urine 1.008 pH, Urine 6.0 Protein, Urine NEGATIVE Glucose, Urine NEGATIVE Blood, Urine SMALL(1+) A Ketones, Urine NEGATIVE Bilirubin, Urine NEGATIVE Urobilinogen, Urine <2.0 Nitrite, Urine NEGATIVE Leukocyte Esterase, Urine SMALL (1+) A Urinalysis, Microscopic 03-May-2020 11:12:00 ResultValue White Cells 7 A Red Blood Cells 9 A Epithelial Cells, Squamous 2 Mucous 1+ PT + INR, Plasma 03-May-2020 10:50:00 ResultValue Prothrombin Time, Plasma 33.4 H International Normalized Ratio, Plasma 2.8 H Lactate, Level 03-May-2020 10:50:00 ResultValue Lactate, Level 1.8 Comprehensive Metabolic Panel Trending View [id number] 05:31:00 02-May-2020 02:22:00 Glucose, Serum93 184 H NA138 138 K3.3 L 4.2 CL101 101 Bicarbonate, Serum26 26 Anion Gap, Serum14 15 BUN86 H 84 H CREAT2.39 H 2.31 H GFR-Non Ohxmnpwo11 A 20 A GFR- Erbgftvb91 A 24 A Calcium, Serum10.8 H 12.3 H ALB2.7 L 3.0 L ALKP67 79 T Pro4.8 L 5.5 L T Bili0.6 0.7 Alanine Aminotransferase, Serum48 H 64 H Aspartate Transaminase, Serum16 18 Complete Blood Count 03-May-2020 05:31:00 ResultValue White Blood Cell Count 22.9 H Red Blood Cell Count 3.81 L HGB 11.1 L HCT 33.8 L MCV 89 MCHC 32.8 PLT 405 RDW-CV 16.0 H Parathormone Intact, Serum 03-May-2020 05:31:00 ResultValue Parathormone Intact, Serum 19.6 Folate, Serum 03-May-2020 05:31:00 ResultValue Folate, Serum 13.5 RBC Morphology 02-May-2020 02:22:00 ResultValue Red Blood Cell Morphology SEE COMMENT NO SIGNIFICANT RBC ABNORMALITIES SEEN ON SMEAR REVIEW. Complete Blood Count + Differential 02-May-2020 02:22:00 ResultValue White Blood Cell Count 17.9 H Red Blood Cell Count 3.81 L HGB 11.2 L HCT 34.1 L MCV 90 MCHC 32.8 PLT 378 RDW-CV 15.7 H Immature Granulocytes % 5.6 H Differential Comment SEE MANUAL DIFF Reticulocyte Count 02-May-2020 02:22:00 ResultValue Retic % 1.4 Retic # 0.054 Retic-HB 37 Manual Differential Panel 02-May-2020 02:22:00 ResultValue % Seg Neutrophil 81.0 % Band Neutrophil 2.0 % Lymphocyte 6.0 % Monocyte 6.0 % Eosinophil 0.0 % Basophil 0.0 % Metamyelocyte 3.0 % Myelocyte 2.0 Absolute Neutrophil Count (ANC) 14.86 H Seg Neutrophil Count 14.50 H Band Neutrophil Count 0.36 Lymphocyte, Count 1.07 Monocyte, Count 1.07 H Eosinophil, Count 0.00 Basophil, Count 0.00 Metamyelocyte, Count 0.54 A Myelocyte, Count 0.36 A C Reactive Protein, Serum 02-May-2020 02:22:00 ResultValue C Reactive Protein, Serum 1.41 A Brain Natriuretic Peptide 02-May-2020 02:22:00 ResultValue Brain Natriuretic Peptide 1665 H Calcium, Ionized Level 02-May-2020 02:22:00 ResultValue Calcium, Ionized Level 1.71 H Radiology Results: Results: Impression: 1 to 15% stenosis right internal carotid artery. 1 to 15% stenosis left internal carotid artery. Blood flow is antegrade in the right vertebral artery. Blood flow is antegrade in the left vertebral artery. If clinically indicated we could repeat the study in 1 year. Ultrasound Carotid Bilateral Duplex [May 03 2020 8:00PM] Impression: Chest 1. Small to moderate left pleural effusion and small right pleural effusion with mild right consolidative opacities. Age-indeterminate wedge compression deformity of the T10 vertebral body with less than 25% height loss. 2. Limited evaluation without the administration of intravenous contrast. Abdomen-Pelvis 1. Solitary right kidney with a nonspecific hypodensity and calcified lesion as seen on prior ultrasound, not fully evaluated on the current noncontrast exam. Contrast a cross-sectional imaging is recommended for evaluation when clinically appropriate. 2. Mild presacral and lateral body wall soft tissue edema, correlate with volume status. 3. Air in the urinary bladder, correlate with recent intervention or correlate with urinalysis if there is concern for infection. 4. Additional findings as above. CT Chest Abdomen Pelvis without Contrast [May 03 2020 10:24AM] Impression: CT Abdomen and Pelvis without Contrast [May 02 2020 4:41PM] Impression: 1. Lower lung airspace disease greater on the left. Xray Chest 2 View PA + Lateral [May 02 2020 1:50PM] Assessment and Plan: Code Status: Code StatusDNAR with Added Limitations Assessment: The patient had episode of change in the mental status probably metabolic: She has a minimal psychomotor slowing History of gait ataxia and falls she needs 1 person assist to ambulate her Change of peripheral neuropathy probably uremic Patient is admitted here for the B12 and vitamin D deficiency in the past adnexa urinary tract infection recently could have made her mental status. 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 Sarcoidosis History of [place]'s disease Gout 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 Hyperlipidemia Atopic dermatitis has been treated Lower lung airway disease Aortic valve cusp calcification mild to moderate her She is on warfarin for the DVT, pulmonary emboli Elevated pulmonary artery pressure Recommendations EEG folic acid level Was normal Orthostatic blood pressures i Physical therapy Ultrasound carotid arteriesFeel 1 to 15% stenosis Electronic Signatures: Vicky Boyd) (Signed 03-May-2020 20:53) Authored: Service, Subjective Data, Objective Data, Assessment and Plan, Note Completion Last Updated: 03-May-2020 20:53 by Vicky Boyd) Normal [facility] FOLATE, SERUMon 05-03-2020 Folate [Mass/Vol] 13.5 ng/mL Normal >5.0 [facility] Comment on above: Result Comment: Low <3.4 Borderline 3.4-5.0 Normal >5.0 . Patients receiving more than 5 mg/day of biotin may have interference in test results. A sample should be taken no sooner than eight hours after previous dose. Contact the testing laboratory for additional information. Performed By: #### C MP #### [address] [id number] LACTATEon 05-03-2020 Lactate [Moles/Vol] 1.8 mmol/L Normal 0.4 - 2.0 [facility] Comment on above: Result Comment: Nadia puncture immediately after or during the administration of Metamizole may lead to falsely low results. Testing should be performed immediately prior to Metamizole dosing. Performed By: #### C BC #### [address] [id number] PARATHYROID HORMONE,INTACTon 05-03-2020 PARATHYROID HORMONE,INTACT 19.6 pg/mL Normal 12.0 - 88.0 [facility] Comment on above: Performed By: #### P TH ####[address] [id number] PT/INRon 05-03-2020 INR Coag (PPP) [Relative time] 2.8 {INR} High 0.9 - 1.1 [facility] Comment on above: Performed By: #### P TINR ####[address] [id number] PT Coag (PPP) [Time] 33.4 s High 10.1 - 13.3 [facility] Comment on above: Performed By: #### P TINR ####[address] [id number] UA MICROSCOPICon 05-03-2020 MUCUS 1+ /LPF Normal [facility] Comment on above: Performed By: #### P R12 #### [facility] [address] [place] [address] RBC 9 /HPF Abnormal 0-5 [facility] Comment on above: Performed By: #### P R12 #### [facility] [address] [place] [address] SQUAMOUS EPITH. CELLS 2 /HPF Normal [facility] Comment on above: Performed By: #### P R12 #### [facility] [address] [place] [address] WBC 7 /HPF Abnormal 0-5 [facility] Comment on above: Performed By: #### P R12 #### [facility] [address] [place] [address] URINALYSISon 05-03-2020 Appearance (U) Canceled Normal [facility] Comment on above: Order Comment: TEST URINALYSIS WAS CANCELLED, 05/03/2020 14:06 DUPLICATE ORDER. Performed By: #### U A ####[address] [id number] ASCORBIC ACID Canceled Normal [facility] Comment on above: Order Comment: TEST URINALYSIS WAS CANCELLED, 05/03/2020 14:06 DUPLICATE ORDER. Result Comment: Conc entrations > = 20 mg/dL of ascorbic acid can be expected to cause strong interference in the reactions testing for glucose, nitrite and blood. It is recommended to discontinue Vitamin C administration and retest in 10 hours. Performed By: #### U A ####[facility] [place], [place] [id number] Bilirubin (U) [Mass/Vol] Canceled Normal [facility] Comment on above: Order Comment: TEST URINALYSIS WAS CANCELLED, 05/03/2020 14:06 DUPLICATE ORDER. Performed By: #### U A ####[place] [place], [place] [id number] BLOOD Canceled Normal [facility] Comment on above: Order Comment: TEST URINALYSIS WAS CANCELLED, 05/03/2020 14:06 DUPLICATE ORDER. Performed By: #### U A ####[address] [id number] Color (U) Canceled Normal [facility] Comment on above: Order Comment: TEST URINALYSIS WAS CANCELLED, 05/03/2020 14:06 DUPLICATE ORDER. Performed By: #### U A ####[address] [id number] Glucose [Mass/Vol] Canceled Normal [facility] Comment on above: Order Comment: TEST URINALYSIS WAS CANCELLED, 05/03/2020 14:06 DUPLICATE ORDER. Performed By: #### U A ####[address] [id number] Ketones Ql (U) Canceled Normal [facility] Comment on above: Order Comment: TEST URINALYSIS WAS CANCELLED, 05/03/2020 14:06 DUPLICATE ORDER. Performed By: #### U A ####[address] [id number] Leukocyte esterase Test strip Ql (U) Canceled Normal [facility] Comment on above: Order Comment: TEST URINALYSIS WAS CANCELLED, 05/03/2020 14:06 DUPLICATE ORDER. Performed By: #### U A ####[address] [id number] Nitrite Ql (U) Canceled Normal [facility] Comment on above: Order Comment: TEST URINALYSIS WAS CANCELLED, 05/03/2020 14:06 DUPLICATE ORDER. Performed By: #### U A ####[address] [id number] pH (Bld) Canceled Normal [facility] Comment on above: Order Comment: TEST URINALYSIS WAS CANCELLED, 05/03/2020 14:06 DUPLICATE ORDER. Performed By: #### U A ####[address] [id number] Protein (U) [Mass/Vol] Canceled Normal [facility] Comment on above: Order Comment: TEST URINALYSIS WAS CANCELLED, 05/03/2020 14:06 DUPLICATE ORDER. Performed By: #### U A ####[address] [id number] Specific gravity (U) [Rel density] Canceled Normal [facility] Comment on above: Order Comment: TEST URINALYSIS WAS CANCELLED, 05/03/2020 14:06 DUPLICATE ORDER. Performed By: #### U A ####[address] [id number] Urobilinogen Qn (U) Canceled Normal [facility] Comment on above: Order Comment: TEST URINALYSIS WAS CANCELLED, 05/03/2020 14:06 DUPLICATE ORDER. Performed By: #### U A ####[address] [id number] URINALYSIS WITH CULTURE IF I NDICATEDon 05-03-2020 Appearance (U) CLEAR Normal CLEAR [facility] Comment on above: Performed By: #### C MP #### [address] [id number] Bilirubin (U) [Mass/Vol] Negative Normal NEGATIVE [facility] Comment on above: Performed By: #### C MP #### [address] [id number] BLOOD SMALL(1+) Abnormal NEGATIVE [facility] Comment on above: Performed By: #### C MP #### [address] [id number] Color (U) STRAW Normal STRAW,YELLOW [facility] Comment on above: Performed By: #### C MP #### [address] [id number] Glucose [Mass/Vol] Negative Normal NEGATIVE [facility] Comment on above: Performed By: #### C MP #### [address] [id number] Ketones Ql (U) Negative Normal NEGATIVE [facility] Comment on above: Performed By: #### C MP #### [address] [id number] Leukocyte esterase Test strip Ql (U) SMALL (1+) Abnormal NEGATIVE [facility] Comment on above: Performed By: #### C MP #### [address] [id number] Nitrite Ql (U) Negative Normal NEGATIVE [facility] Comment on above: Performed By: #### C MP #### [address] [id number] pH (Bld) 6.0 Normal 5.0 - 8.0 [facility] Comment on above: Performed By: #### C MP #### [address] [id number] Protein (U) [Mass/Vol] Negative Normal NEGATIVE [facility] Comment on above: Performed By: #### C MP #### [address] [id number] Specific gravity (U) [Rel density] 1.008 Normal 1.005 - 1.035 [facility] Comment on above: Performed By: #### C MP #### [address] [id number] Urobilinogen Qn (U) <2.0 Normal 0.0 - 1.9 [facility] Comment on above: Performed By: #### C MP #### [address] [id number] Lab Specimen Source Normal [facility] Comment on above: Performed By: #### C MP #### [address] [id number] Performed By: #### P R12 #### [facility] [address] [place] [address] URINE CULTURE,BACTERIALon URINE CULTURE,BACTERIAL PATIENT: LINDA PERALTA LOCATION: [address]#: [id number] : 41 AGE: SEX: F ORDERED BY: NANI STANLEY SOURCE: URINE COLLECTED: 05/03/20 11:12 ANTIBIOTICS AT [facility]AB[facility].: RECEIVED : 05/03/20 21:18 SITE: R E S U L T S URINE CULTURE,BACTERIAL FINAL 05/04/20 14:08 NO GROWTH Normal [facility] Comment on above: Performed By: #### P R12 #### [facility] [address] [place] [address] US CAROTID BILATERAL DUPLEXo n 05-03-2020 US CAROTID BILATERAL DUPLEX Patient Name: LINDA PERALTA STUDY: US CAROTID BILATERAL DUPLEX; 05/03/2020 10:18 am INDICATION: Change in the mental status question of strokes, gait ataxia and falls, fainting spells. COMPARISON: None. ACCESSION NUMBER(S): [id number] ORDERING CLINICIAN: VICKY BOYD FINDINGS: Duplex scan of carotid arteries was done to look for any disease in the cervical segments. Right carotid system: Imaging of right common carotid artery shows mild intimal thickening. The right carotid bulb showed moderate plaque formation. Right internal carotid artery shows plaque formation. Doppler of right internal carotid artery shows peak velocity of 59 cm/sec . This shall be consistent with 1 to 15% stenosis. Blood flow is antegrade in the right vertebral artery. Left carotid system: Imaging of left common carotid artery shows mild intimal thickening. The left carotid bulb showed no significant disease seen. Left internal carotid artery shows no significant disease. Doppler of left internal carotid artery shows peak velocity of 41 cm/sec . This shall be consistent with 1 to 15% stenosis. Blood flow is antegrade in the left vertebral artery. IMPRESSION: 1 to 15% stenosis right internal carotid artery. 1 to 15% stenosis left internal carotid artery. Blood flow is antegrade in the right vertebral artery. Blood flow is antegrade in the left vertebral artery. If clinically indicated we could repeat the study in 1 year. Electronically signed by: VICKY BOYD MD Normal [facility] Admission Risk Screen - Adul ton 05-02-2020 Admission Risk Screen - Adult Allergies: Allergies: ciprofloxacin: Rash penicillins: Rash Patient Verification: New W ID Band Applied in my Departmentyes Patient Identity Verified Bypatient ID Band FULL Name, include Middle, spelling matches patient's ID used for verificationyes ID Band Matches Patient ID used for Verficationyes ID Band MRN Matches EMR MRNyes Visitor Restriction: Coronavirus Visitor Restriction: Reasonable restrictions to in-person visitors will be observed due to current coronavirus pandemic. Travel History: COVID-19 Screening Completedno exposure or symptoms Advance Directive: Advance Directive/DNRyes Advance Directive typeDNR- CCA DNR-CCA Availabilityplaced on chart DNR-CCA Placed on [id number] Advanced Directive Commentno intubation [place] Fall Screen: History of falling (immediate or previous)yes (25) Secondary Diagnosisyes (15) Intravenous Therapy/ Heparin/Saline Lockyes (20) Gait/Transferringweak (10) Ambulatory Aidsnone/bedrest/nurse assist (0) Mental Statusoverestimates/forg ets limitations (15) Score: Low risk (<25). Moderate risk (25-44). High risk (>44).85 Gillespie InterventionsHIGH INTERVENTIONS *Low and Moderate Interventions Plus: * supervised toileting at all times Family Violence Screen: Are you or have you been threatened or abused physically, emotionally, or sexually by anyoneno Do you feel UNSAFE going back to the place where you are livingno Clinical assessment: Are there any apparent signs of injuries/behaviors that could be related to abuse/neglectno Social Service Consult for abuse/neglect needed this visitno Functional Screen: Functional Screen: In the recent/past 2-4 weeks, patient or family have noticedno issues that require a speech/language consult at this time AM-PAC- Basic Mobility/Daily Activity: Patient baseline bedboundno Learning Assessment (Patient): Patient is Able to be Assessed for Learningyes Factors Influencing Readiness to Learnacuteness of illness Factors that Impact Ability to Learnacuteness of illness, cognitive limitations, comprehension, patient confused Devices/Methods Used to Communicatenone Learning Preferencesindividual instruction; group instruction; skill demonstration; verbal instruction; written material Cultural Considerationsnone Developmental Considerationsnone Advent Considerationsnone Learning Assessment (Other Learner): Other learner availableno Depression Screen: During the past month, have you often been bothered by feeling down, depressed or hopelessyes is sick (dx of [place]) During the past month, have you often had little interest or pleasure in doing thingsno Have you had any thoughts of harming anyone elseno [place] Suicide: Risk Screen Not Applicable/Able to Answerable to be screened In the Past Month: Have you wished you were or could go to sleep and not wake upno In the Past Month: Have you had any actual thoughts of killing yourselfno Lifetime: Have you ever done, started to do, or prepared to do anything to end your lifeno [place] Suicide Risknegative Adult Nutrition Screen: Have you recently lost weight without tryingno Have you been eating poorly because of a decreased appetiteno Malnutrition Screening Tool Score0 Malnutrition Screening Tool RiskMST = 0 or 1 Not at risk. Eating well with little or no weight loss Nutrition Consult needed this visitno Can Patient Participate in Room Serviceyes Patient requires Paper Dishes/Plastic Utensilsno Pain Screen: Pain Scalenumerical 0-10 Pain Scale Educationteaching provided Current Pain Level0 = None Acceptable Pain Level0 = None Expression of Pain (nonverbal)none Chronic Painno Spiritual Screen: Are there any cultural, spiritual, congregation practices/values/needs that are important for us to knowno CAGE: Is this an injured patient at a Trauma Center ([facility]/[place] /[place]): no Vaccinations: Vaccination - Influenza Vaccination Screen: Is it flu season (between and June 02)Yes Screening for identified contraindications to influenza vaccination patient/caregiver refusal Vaccination - Pneumonia Vaccination Screen: Patient has received a previous pneumonia vaccine:no/unknown... Pneumonia vaccine NOT indicated due to:patient/caregiver refusal at this time Oniel: Skin - Oniel Scale: Oniel: Sensory Perception (response to environment)(3) slightly limited Oniel: Moisture (degree skin exposed to moisture)(3) occasionally moist Oniel: Activity (ability to walk)(2) chairfast Oniel: Mobility (amount/control of body movement)(3) slightly limited Oniel: Nutrition (quality of food intake)(3) adequate Oniel: Friction and Shear(2) potential problem Oniel: Score16 Skin Intervention Orders (Nursing orders will be generated)elevate heels, up in chair < 1 hr intervals, turn side to side every 2 hrs, assess for therapeutic equipment, assess pressure points, hygiene care, toilet/ADL every 2 hrs awake, toilet/ADL every 4 hrs asleep, educate prevent/treat pressure ulcer, use pull sheet, assess/document pressure ulcer, educate skin/wound care Significant Indicatiors: Significant Indicators: Complete Pressure Injury: Pressure Injury Present on Admissionyes Pressure Injury Comments Stage 2 on the coccyx, second nurse to verify is Aicha Ricks RN. Pressure Injury Photo Takenno Electronic Signatures: Nehemias Mercado (RN) (Signed 02-May-2020 01:37) Authored: Admission Risk Screens, [place] Fall Screen, Vaccinations, Oniel, Pressure Injury Last Updated: 02-May-2020 01:37 by Nehemias Mercado (RN) Normal [facility] BNPon 05-02-2020 Natriuretic peptide B (Bld) [Mass/Vol] 1665 pg/mL High 0 - 99 [facility] Comment on above: Result Comment: . <1 00 pg/mL - Heart failure unlikely 100-299 pg/mL - Intermediate probability of acute heart . failure exacerbation. Correlate with clinical . context and patient history. >=300 pg/mL - Heart Failure likely. Correlate with clinical . context and patient history. BNP testing is performed using different testing methodology at [facility] than at other [facility]. Direct result comparisons should only be made within the same method. Performed By: #### C BC #### [address] [id number] C-REACTIVE PROTEINon 021 CRP [Mass/Vol] 1.41 mg/dL Abnormal [facility] Comment on above: Result Comment: REF VALUE < 1.00 Performed By: #### C MP #### [address] [id number] CALCIUMon 05-02-2020 Calcium [Mass/Vol] Canceled Normal [facility] Comment on above: Order Comment: TEST CALCIUM WAS CANCELLED, 05/02/2020 12:20 added per RN 05/02/2020 12:20. Performed By: #### C A #### [address] [id number] CALCIUM, IONIZEDon 1 CALCIUM,IONIZED 1.71 mmol/L High 1.10 - 1.33 [facility] Comment on above: Performed By: #### C MP #### [address] [id number] CBC AND DIFFERENTIALon 05-02 % AUTOMATED IMMATURE GRAN 5.6 % High 0.0 - 0.9 [facility] Comment on above: Result Comment: Linda ture Granulocyte Count (IG) includes promyelocytes, myelocytes and metamyelocytes but does not include bands. Percent differential counts (%) should be interpreted in the context of the absolute cell counts (cells/L). Performed By: #### C BC #### [address] [id number] DIFFERENTIAL SEE MANUAL DIFF Normal [facility] Comment on above: Performed By: #### C BC #### [address] [id number] Erythrocyte distribution width (RBC) [Ratio] 15.7 % High 11.5 - 14.5 [facility] Comment on above: Performed By: #### C BC #### [address] [id number] Hematocrit (Bld) [Volume fraction] 34.1 % Low 36.0 - 46.0 [facility] Comment on above: Performed By: #### C BC #### [address] [id number] Hemoglobin (Bld) [Mass/Vol] 11.2 g/dL Low 12.0 - 16.0 [facility] Comment on above: Performed By: #### C BC #### [address] [id number] MCHC (RBC) [Mass/Vol] 32.8 g/dL Normal 32.0 - 36.0 [facility] Comment on above: Performed By: #### C BC #### [address] [id number] MCV (RBC) [Entitic vol] 90 fL Normal 80 - 100 [facility] Comment on above: Performed By: #### C BC #### [address] [id number] Platelets (Bld) [#/Vol] 378 10*3/uL Normal 150 - 450 [facility] Comment on above: Performed By: #### C BC #### [address] [id number] RBC (Bld) [#/Vol] 3.81 x10E12/L Low 4.00 - 5.20 [facility] Comment on above: Performed By: #### C BC #### [address] [id number] WBC (Bld) [#/Vol] 17.9 10*3/uL High 4.4 - 11.3 [facility] Comment on above: Performed By: #### C BC #### [address] [id number] CHEST 2 VIEW PA AND LATon CHEST 2 VIEW PA AND LAT Patient Name: LINDA PERALTA STUDY: CHEST 2 VIEW PA AND LAT; 05/02/2020 12:49 pm INDICATION: hypoxia. COMPARISON: None. ACCESSION NUMBER(S): [id number] ORDERING CLINICIAN: NANI STANLEY FINDINGS: CARDIOMEDIASTINAL SILHOUETTE AND VASCULATURE: Cardiac size: Mild cardiomegaly Aortic shadow: Within normal limits considering technique Mediastinal contours: Within normal limits considering technique Pulmonary vasculature: The central vasculature is unremarkable LUNGS: There is opacification at the left lower lung probably from [id number] pleural effusion and underlying atelectasis or consolidation. Is also blunting at the right costophrenic angle posteriorly probably from a small effusion. There could also be fibrosis at the lower lungs as there are no prior exams for comparison. ABDOMEN AND OTHER FINDINGS: No remarkable upper abdominal findings. BONES: No acute osseous changes. IMPRESSION: 1. Lower lung airspace disease greater on the left. Electronically signed by: ALBERTO HARRIS MD Normal [facility] COAGULATION SCREENon aPTT Coag (Bld) [Time] 25 s Normal 25 - 35 [facility] Comment on above: Result Comment: THE APTT IS NO LONGER USED FOR MONITORING UNFRACTIONATED HEPARIN THERAPY. FOR MONITORING HEPARIN THERAPY, USE THE HEPARIN ASSAY. Performed By: #### C MP #### [address] [id number] INR Coag (PPP) [Relative time] 2.4 {INR} High 0.9 - 1.1 [facility] Comment on above: Performed By: #### C MP #### [address] [id number] PT Coag (PPP) [Time] 28.4 s High 10.1 - 13.3 [facility] Comment on above: Performed By: #### C MP #### [address] [id number] COMPREHENSIVE PANELon 2020 Albumin [Mass/Vol] 3.0 g/dL Low 3.4 - 5.0 [facility] Comment on above: Performed By: #### C MP #### [address] [id number] ALP [Catalytic activity/Vol] 79 U/L Normal 33 - 136 [facility] Comment on above: Performed By: #### C MP #### [address] [id number] ALT [Catalytic activity/Vol] 64 U/L High 7 - 45 [facility] Comment on above: Result Comment: Liz ents treated with Sulfasalazine may generate falsely decreased results for ALT. Performed By: #### C MP #### [address] [id number] Anion gap [Moles/Vol] 15 mmol/L Normal 10 - 20 [facility] Comment on above: Performed By: #### C MP #### [address] [id number] AST [Catalytic activity/Vol] 18 U/L Normal 9 - 39 [facility] Comment on above: Performed By: #### C MP #### [address] [id number] Bilirubin [Mass/Vol] 0.7 mg/dL Normal 0.0 - 1.2 [facility] Comment on above: Performed By: #### C MP #### [address] [id number] Calcium [Mass/Vol] 12.3 mg/dL High 8.6 - 10.3 [facility] Comment on above: Performed By: #### C MP #### [address] [id number] Chloride [Moles/Vol] 101 mmol/L Normal 98 - 107 [facility] Comment on above: Performed By: #### C MP #### [address] [id number] Creatinine [Mass/Vol] 2.31 mg/dL High 0.50 - 1.05 [facility] Comment on above: Performed By: #### C MP #### [address] [id number] GFR- AM. 24 mL/min/1.73m2 Abnormal >60 [facility] Comment on above: Result Comment: CALC ULATIONS OF ESTIMATED GFR ARE PERFORMED USING THE MDRD STUDY EQUATION FOR THE IDMS-TRACEABLE CREATININE METHODS. CLIN CHEM 2007;53:766-72 Performed By: #### C MP #### [address] [id number] GFR-NON AM. 20 mL/min/1.73m2 Abnormal >60 [facility] Comment on above: Performed By: #### C MP #### [address] [id number] Glucose [Mass/Vol] 184 mg/dL High 74 - 99 [facility] Comment on above: Performed By: #### C MP #### [address] [id number] HCO3 (Bld) [Moles/Vol] 26 mmol/L Normal 21 - 32 [facility] Comment on above: Performed By: #### C MP #### [address] [id number] Potassium [Moles/Vol] 4.2 mmol/L Normal 3.5 - 5.3 [facility] Comment on above: Performed By: #### C MP #### [address] [id number] Sodium [Moles/Vol] 138 mmol/L Normal 136 - 145 [facility] Comment on above: Performed By: #### C MP #### [address] [id number] Urea nitrogen [Mass/Vol] 84 mg/dL High 6 - 23 [facility] Comment on above: Performed By: #### C MP #### [address] [id number] CREATINE KINASEon 05-02-2020 CK [Catalytic activity/Vol] 28 U/L Normal 0 - 215 [facility] Comment on above: Performed By: #### C A #### [address] [id number] Consult-Nephrologyon 021 Consult-Nephrology Service: Service: Nephrology Consult: Consult requested by (Attending Name): Nani Stanley Reason: ANGELA History of Present Illness: HPI: LINDA PERALTA is a 75 year old Female w/ history s/f HTN, CAD, moris's disease, solitary kidney c/b RCC s/p partial nephrectomy, DVT/PE who [facility], hypercalcemia and hypotension now transferred here. Was there for 10 days. nephrology consulted for significant HTN and ANGELA. Detailed history difficult to obtain from patient but able to corroborate basic information. Discussed w/ primary and reports from daughter. CKD however per report had SCr 0.8 as outpatient. Currently Scr 2.3, Ca 12.3, phos 6.4, uric acid 10.4, CK however wnl, nml Vit D 25 at 33. Pt states she sees a traveler changer Dr. Tarango PMHx: DVT/PE on warfarin, renal cell carcinoma, HTN, CAD, atopic dermatitis, moris's disease, CKD stage III PSHx: RT partial nephrectomy, ARIEL, bladder resecttion SHx: no tobacco etoh or illicit drug use FHx not contributory Review of systems: Positives in bold Constitutional: fever, chills Eyes: vision change, blurry vision ENMT: nasal congestion, throat pain Respiratory: SOB, cough, hemoptysis Cardiac: chest pain, MOSES, orthopnea, palpitations GI: nausea, vomiting, diarrhea, abdominal pain : dysuria, hematuria, frequency Musculoskeletal: pain, weakness, swelling, leg swelling Neuro: confusion, headache, seizures, syncope, numbness, tingling Psych: mood changes, anxiety Skin: rash, pruritus Endo: heat intolerance, cold intolerance, thirst, polyuria Allergies: ciprofloxacin: Rash penicillins: Rash Objective: Objective Information: T PRBPSpO2 [id number]/8396% Date/Time05/02 8: 10: 8: 10: 8:30 Range(36.2C - 37.3C ) (85 - 93 ) (17 - 20 ) (161 - 183 )/ (83 - 110 ) (96% - 96% ) Highest temp of 37.3 C was recorded at 05/01 19:18 Constitutional: Alert, in no acute distress HEENT: NC/AT, anicteric Neck: supple, no mass Lungs: CTAB, non-labored respirations Heart: RRR, no murmur Abdomen: soft, NT, ND Ext: no cyanosis, no peripheral edema Neuro: Alert, follows commands Psych: Normal mood and affect Skin: no rash or bruising Medications: Medications: Continuous Medications -------- 1. Sodium Chloride 0.9% Infusion: 1000 mL IntraVenous Scheduled Medications -------- 1. Atorvastatin: 10 mg Oral Daily 2. Fludrocortisone: 0.1 mg Oral Daily 3. Fluticasone 50 microgram/ Nasal Inhalation: 1 spray(s) Each Nostril Daily 4. Hydrocortisone: 10 mg Oral Daily 5. Hydrocortisone: 20 mg Oral Daily 1800 6. Menthol 0.44% - Zinc Oxide 20.625% Topical: 1 application(s) Topical 3 Times a Day 7. Warfarin: 2.5 mg Oral Daily PRN Medications -------- 1. Acetaminophen: 650 mg Oral Every 4 Hours 2. hydrALAZINE (APRESOLINE) Injectable: 5 mg IntraVenous Push Every 6 Hours 3. Nitroglycerin SubLingual: 0.4 mg SubLingual Every 5 Minutes 4. Ondansetron Injectable: 4 mg IntraVenous Push Every 4 Hours Conditional Medication Orders -------- 1. Perflutren Lipid Microsphere (Activated) 1.3 mL / NaCL 0.9% T.V. 10 mL Injectable: 0.5 mL IntraVenous Push Once Recent Lab Results: Results: I have reviewed these laboratory results: Complete Blood Count + Differential 02-May-2020 02:22:00 ResultValue White Blood Cell Count 17.9 H Red Blood Cell Count 3.81 L HGB 11.2 L HCT 34.1 L MCV 90 MCHC 32.8 PLT 378 RDW-CV 15.7 H Immature Granulocytes % 5.6 H Differential Comment SEE MANUAL DIFF Comprehensive Metabolic Panel 02-May-2020 02:22:00 ResultValue Glucose, Serum 184 H NA 138 K 4.2 CL 101 Bicarbonate, Serum 26 Anion Gap, Serum 15 BUN 84 H CREAT 2.31 H GFR-Non 20 A GFR- 24 A Calcium, Serum 12.3 H ALB 3.0 L ALKP 79 T Pro 5.5 L T Bili 0.7 Alanine Aminotransferase, Serum 64 H Aspartate Transaminase, Serum 18 Reticulocyte Count 02-May-2020 02:22:00 ResultValue Retic % 1.4 Retic # 0.054 Retic-HB 37 Manual Differential Panel 02-May-2020 02:22:00 ResultValue % Seg Neutrophil 81.0 % Band Neutrophil 2.0 % Lymphocyte 6.0 % Monocyte 6.0 % Eosinophil 0.0 % Basophil 0.0 % Metamyelocyte 3.0 % Myelocyte 2.0 Absolute Neutrophil Count (ANC) 14.86 H Seg Neutrophil Count 14.50 H Band Neutrophil Count 0.36 Lymphocyte, Count 1.07 Monocyte, Count 1.07 H Eosinophil, Count 0.00 Basophil, Count 0.00 Metamyelocyte, Count 0.54 A Myelocyte, Count 0.36 A C Reactive Protein, Serum 02-May-2020 02:22:00 ResultValue C Reactive Protein, Serum 1.41 A Brain Natriuretic Peptide 02-May-2020 02:22:00 ResultValue Brain Natriuretic Peptide 1665 H Calcium, Ionized Level 02-May-2020 02:22:00 ResultValue Calcium, Ionized Level 1.71 H Creatine Kinase, Level 02-May-2020 02:22:00 ResultValue Creatine Kinase, Level 28 Lactate, Level 02-May-2020 02:22:00 ResultValue Lactate, Level 1.8 Magnesium, Serum 02-May-2020 02:22:00 ResultValue Magnesium, Serum 2.00 Osmolality, Serum 02-May-2020 02:22:00 ResultValue Osmolality, Serum 322 H Assessment: LINDA PERALTA is a 75 year old Female w/ history s/f HTN, CAD, moris's disease, solitary kidney c/b RCC s/p partial nephrectomy, DVT/PE who [facility], hypercalcemia and hypotension now transferred here. 1. ANGELA on CKD: previously hypotensive at [facility], now hypertensive, also CRS as pt is volume overloaded on exam vs. crystal induced (hypercalcemic, hyperphosphatemic, hyperuricemic), not on any nephrotoxic medications, not rhabdomyolysis (nml CK even though has high phos and uric acid), does have risk factors for CKD due to donating LT kidney hence has RT solitary kidney c/b RCC s/p RT partial nephrectomy 2. Hypercalcemia/hyperphosp hatemia: c/f hyperparathyroidism (primary or secondary though would expect low phos pt has low kidney function so decreasing phos clearance) vs. elevated Vit d 1,25 vs. paraproteinemia, has nml Vit D 33 3. Hyperuricemia: has nml CK, unlikely related to TLS (has high phos but would also expect hyperkalemia though this could be affected w/ pt on florinef and likely hypocalcemia), not on thiazides, can be seen in sarcoidosis, hyperparathyroidism, hypothyroidism 4. HTN: could be due to medications (on florinef, hydrocortisone) or increased salt load from IVFs 5. Adrenal insufficiency Plan: - due to hypercalcemia and hyperuricemia would continue fluids but change to 0.45 NS at 125 ml/hr for now to decrease salt load - starting lasix 40 mg IV BID and monitor UOP and function - checking PTH, PTHrp and Vit D 1,25 and SPEP - will start allopurinol 200 mg QD - ok to continue florinef and hydrocortisone doses, if any changes need to be made consider decreasing evening hydrocortisone dose to 10 mg as well - hold off on addition of anti-hypertensives for now - starting renvela TID w/ meals - low Na, low phos diet Thank you for the consult. Will continue to follow Consult Status: Consult Order ID: [id number] Electronic Signatures: Leigh Billy) (Signed 02-May-2020 12:52) Authored: Service, History of Present Illness, Allergies, Objective, Assessment/Recommendatio ns, Note Completion Last Updated: 02-May-2020 12:52 by Leigh Billy) Normal [facility] Daily Progress Note-Medicine on 05-02-2020 Daily Progress Note-Medicine Service: Medicine Subjective Data: LINDA PERALTA is a 75 year old Female who is Hospital Day # 2. Additional Information: Patient is seen and examined. She initially offers no complaints. States she slept well last night, ate small breakfast. She has obvious confusion during conversation and is easily distractible and conversation goes off subject to questions asked. She states she realizes she has some confusion, has been told this by others since her hospitalization. Has low-grade headache feels it is due to lying in bed and stiffness. No dizziness or visual disturbance. No chills. No chest pain. No cough or shortness of breath. She follows commands, at times has word finding difficulty. Denies nausea or bowel changes. Objective Data: Objective Information: T PRBPSpO2 [id number]/8396% Date/Time05/02 8: 10: 8: 10: 8:30 Range(36.2C - 37.3C ) (85 - 93 ) (17 - 20 ) (161 - 183 )/ (83 - 110 ) (96% - 96% ) Highest temp of 37.3 C was recorded at 05/01 19:18 Pain reported at 05/01 19:18: 0 = None Weights 05/02 0:48: Weight in kg (Weight (kg)) 74.5 05/02 0:48: Weight in lbs ((lbs)) 164.2 05/02 0:48: BMI (kg/m2) (BMI (kg/m2)) 28.213 Physical Exam by System: Constitutional: Alert, no acute distress, in bed ENMT: Sticky oral mucosa Head/Neck: Supple Respiratory/Thorax: Diminished, no wheeze or rhonchi, room air, no accessory muscle use Cardiovascular: RRR, no R/M/G Gastrointestinal: Soft, obese, nontender, NABS Musculoskeletal: Moves all extremities x4 spontaneously with equal strength but generalized weakness Extremities: 2+ dorsal foot and ankle edema, calves nontender Neurological: Oriented x2, follows commands, speech clear with word finding difficulty, equal facial symmetry, tongue midline Psychological: Withdrawn, cooperative Skin: Pale, warm dry Medication: Medications: Continuous Medications -------- 1. Sodium Chloride 0.9% Infusion: 1000 mL IntraVenous Scheduled Medications -------- 1. Allopurinol: 200 mg Oral Every 24 Hours 2. Atorvastatin: 10 mg Oral Daily 3. Calcitonin Injectable: 200 unit(s) IntraMuscular Daily 4. Fludrocortisone: 0.1 mg Oral Daily 5. Fluticasone 50 microgram/ Nasal Inhalation: 1 spray(s) Each Nostril Daily 6. Furosemide Injectable: 40 mg IntraVenous Push 2 Times a Day 7. Hydrocortisone: 10 mg Oral Daily 8. Hydrocortisone: 20 mg Oral Daily 1800 9. Menthol 0.44% - Zinc Oxide 20.625% Topical: 1 application(s) Topical 3 Times a Day 10. Sevelamer Carbonate: 800 mg Oral 3 Times a Day With Meals 11. Warfarin: 2.5 mg Oral Daily PRN Medications -------- 1. Acetaminophen: 650 mg Oral Every 4 Hours 2. hydrALAZINE (APRESOLINE) Injectable: 5 mg IntraVenous Push Every 6 Hours 3. Nitroglycerin SubLingual: 0.4 mg SubLingual Every 5 Minutes 4. Ondansetron Injectable: 4 mg IntraVenous Push Every 4 Hours Conditional Medication Orders -------- 1. Perflutren Lipid Microsphere (Activated) 1.3 mL / NaCL 0.9% T.V. 10 mL Injectable: 0.5 mL IntraVenous Push Once Recent Lab Results: Results: CBC: 05/02/2020 02:22 \ Hgb / \ 11.2 L / WBC Plt 17.9 H 378 / Hct \ / 34.1 L \ RBC: 3.81 L MCV: 90 CMP: 05/02/2020 02:22 NA+ Cl- BUN / 138 101 84 H / -------- Glucose --- 184 H K+ HCO3- Creat \ 4.2 26 2.31 H \ \ T Bili / \ 0.7 / AST x ---- x ALT 18 x ---- x 64 H / Alk P \ / 79 \ Calcium : 12.3 H Anion Gap : 15 Albumin : 3.0 L T Protein : 5.5 L Coagulation: 05/02/2020 02:21 PT / 28.4 H / -------< INR < 2.4 H PTT\ 25 \ I have reviewed these laboratory results: RBC Morphology 02-May-2020 02:22:00 ResultValue Red Blood Cell Morphology SEE COMMENT NO SIGNIFICANT RBC ABNORMALITIES SEEN ON SMEAR REVIEW. Reticulocyte Count 02-May-2020 02:22:00 ResultValue Retic % 1.4 Retic # 0.054 Retic-HB 37 Manual Differential Panel 02-May-2020 02:22:00 ResultValue % Seg Neutrophil 81.0 % Band Neutrophil 2.0 % Lymphocyte 6.0 % Monocyte 6.0 % Eosinophil 0.0 % Basophil 0.0 % Metamyelocyte 3.0 % Myelocyte 2.0 Absolute Neutrophil Count (ANC) 14.86 H Seg Neutrophil Count 14.50 H Band Neutrophil Count 0.36 Lymphocyte, Count 1.07 Monocyte, Count 1.07 H Eosinophil, Count 0.00 Basophil, Count 0.00 Metamyelocyte, Count 0.54 A Myelocyte, Count 0.36 A C Reactive Protein, Serum 02-May-2020 02:22:00 ResultValue C Reactive Protein, Serum 1.41 A Brain Natriuretic Peptide 02-May-2020 02:22:00 ResultValue Brain Natriuretic Peptide 1665 H Calcium, Ionized Level 02-May-2020 02:22:00 ResultValue Calcium, Ionized Level 1.71 H Creatine Kinase, Level 02-May-2020 02:22:00 ResultValue Creatine Kinase, Level 28 Lactate, Level 02-May-2020 02:22:00 ResultValue Lactate, Level 1.8 Magnesium, Serum 02-May-2020 02:22:00 ResultValue Magnesium, Serum 2.00 Osmolality, Serum 02-May-2020 02:22:00 ResultValue Osmolality, Serum 322 H Phosphorus, Serum 02-May-2020 02:22:00 ResultValue Phosphorus, Serum 6.4 H Prealbumin, Serum 02-May-2020 02:22:00 ResultValue Prealbumin, Serum 28.0 Uric Acid, Serum 02-May-2020 02:22:00 ResultValue Uric Acid, Serum 10.4 H Free Thyroxine, Serum 02-May-2020 02:22:00 ResultValue Free Thyroxine, Serum 1.30 H Thyroid Stimulating Hormone, Serum 02-May-2020 02:22:00 ResultValue Thyroid Stimulating Hormone, Serum 0.69 Vitamin D (25-Hydroxy), Level 02-May-2020 02:22:00 ResultValue Vitamin D (25-Hydroxy), Level 33 Coagulation Screen 02-May-2020 02:21:00 ResultValue Prothrombin Time, Plasma 28.4 H International Normalized Ratio, Plasma 2.4 H Activated Partial Thromboplastin Time 25 Radiology Results: Results: Impression: 1. Lower lung airspace disease greater on the left. Xray Chest 2 View PA + Lateral [May 02 2020 1:50PM] Conclusion: CONCLUSIONS: 1. The left ventricular systolic function is normal with a 60-65% estimated ejection fraction. 2. Spectral Doppler shows an impaired relaxation pattern of left ventricular diastolic filling. 3. Mild aortic valve stenosis. 4. There is moderate aortic valve cusp calcification. 5. Mild to moderately elevated pulmonary artery pressure. Echocardiogram [May 02 2020 1:08PM] Impression: No evidence of hydronephrosis. Nonobstructing calculus at the upper pole. Complex cyst with calcification given hypodensity at the level of the renal hilum for which nonemergent CT would be recommended for further evaluation. Ultrasound Renal Bilateral [May 02 2020 12:57PM] Assessment and Plan: Code Status: Code StatusDNAR with Added Limitations Impression 1: HYPERCALCEMIA, HYPERPHOSPHATEMIA, HYPERURICEMIA Plan for Impression 1: -Nephrology following and endocrinology consulted -IVF, furosemide, allopurinol, Renvela, calcitonin per nephrology -Pending PTH, vitamin D 33 -Volume overloaded on exam, BNP 1665, echo normal EF. Venous Doppler from [facility] 04/24 - for DVT -Appears she received fluids, furosemide, pamidronate [facility] -previously reported extreme elevation D > 250 at [facility], CT chest abdomen pelvis nonacute Impression 2: CKD, SOLITARY KIDNEY S/P PARTIAL NEPHRECTOMY benign RCC Plan for Impression 2: -Nephrology following -Baseline renal function unknown. Presenting creatinine 3/3 at [facility] 1.82 Impression 3: Altered mental status Plan for Impression 3: -Neurology consult Impression 4: ADDISONS DISEASE Plan for Impression 4: -Hydrocortisone, fludrocortisone -Endocrinology consult Impression 5: RECENT UTI Plan for Impression 5: -Repeat UA, reportedly Citrobacter at [facility] unknown course of therapy, if any -WBC 17.9 previously normal Impression 6: FALLS, WEAKNESS Plan for Impression 6: -Therapy Impression 7: CHRONIC CONDITIONS Plan for Impression 7: #HTN, CAD, HLD- atorvastatin. Was hypotensive at outside hospital amlodipine held, holding off additional antihypertensives at recommendations of nephrology #DVT/PE HX ON AC-continue warfarin, trend INRs goal 2-3 #ATOPIC DERM- dupixent at home Signature/Cosignature/At testation: Note Completion: I am a: RO[employer]PER[employer] Student [employer]PER[employer] Student AttogI was present with the ROAD ROLLER OPERATOR [employer] student who participated in the documentation of this note. I have personally seen and re-examined the patient and performed the medical decision-making components (assessment and plan of care). I have reviewed the ROAD [employer] OPERATOR [employer] student documentation and verified the findings in the note as written with additions or exceptions as stated in the body of this note. I personally evaluated the patient [id number] Comments/ Additional Findings Patient was seen and examined labs and vitals reviewed agree with the above note Assessment and plan Encephalopathy most likely metabolic in nature giving patient hypercalcemia will consult neurology for further recommendation and management Hypercalcemia appreciate nephrology input change IV fluid on IV Lasix Hyperuricemia on allopurinol Acute kidney injury get ultrasound UA discussed with nephrology continue to monitor patient has history of solitary kidney that had surgical procedure on for benign tumor per family Adrenal insufficiency on chronic hydrocortisone and Florinef Hx of Severe atopic dermatitis on dupixent subcu twice a week Electronic Signatures: Nani Stanley) (Signed 02-May-2020 16:15) Authored: Assessment and Plan, Note Completion Zahra Knowles (MARRY) (Signed 02-May-2020 14:29) Authored: Service, Subjective Data, Objective Data, Assessment and Plan, Note Completion Last Updated: 02-May-2020 16:15 by Nani Stanley) Normal [facility] History and Physicalon 05-02 History and Physical History of Present Illness: HPI: LINDA PERALTA is a 75 year old Female who was transferred to this hospital for endocrine evaluation. PT is a poor historian and there were few usable records transferred from OSH, the history is limited as such Per the patient on 3 she was admitted to the hospital for hypercalcemia. according to her she has had multiple interventions but they have been unsuccessful at correcting it. On admission the patient had acute kidney injury which was improving with volume resuscitation. decision made to transfer pt here for subspecialty evaluation. Dr Gregory reportedly agreed to consult. Pt had a UTI at the outside hospital- culture grew citrobacter, pt was put on antibiotic- unclear when course completed The patient has no current complaints other than fatigue and wanting to be out of the hospital PMHx: DVT/PE on warfarin, renal cell carcinoma, HTN, CAD, atopic dermatitis, moris's disease, CKD stage III PSHx: nephrectomy, ARIEL, bladder resecttion SHx: no tobacco etoh or illicit drug use FHx and ROS not obtainable d/t pt's mental status Allergies: ciprofloxacin: Rash penicillins: Rash Medications Prior to Admission: lactobacillus acidophilus-lactobacillu s casei oral delayed release capsule: 1 cap(s) orally once a day nitroglycerin 0.4 mg sublingual tablet: 1 tab(s) sublingual every 5 minutes, As Needed cholecalciferol 1000 intl units (25 mcg) oral tablet: 1 tab(s) orally once a day cyanocobalamin 1000 mcg oral tablet: 1 tab(s) orally once a day dupilumab: 300 milligram(s) subcutaneous every 2 weeks acetaminophen: 1000 milligram(s) orally every 6 hours, As Needed fluticasone nasal: 1 spray(s) nasal once a day (at bedtime) hydrocortisone 10 mg oral tablet: 1 tab(s) orally once a day hydrocortisone 20 mg oral tablet: 1 tab(s) orally once a day Calmoseptine 0.44%-20.6% topical ointment: Apply topically to affected area 2 times a day, As Needed warfarin 2.5 mg oral tablet: 1 tab(s) orally once a day atorvastatin 10 mg oral tablet: 1 tab(s) orally once a day (at bedtime) Florinef Acetate 0.1 mg oral tablet: 1 tab(s) orally once a day. Objective: Objective Information: T PRBPSpO2 [id number]/76537% Date/Time05/02 4: 4: 19: 4: 4:22 Range(36.3C - 37.3C ) (85 - 93 ) (20 - 20 ) (177 - 183 )/ (107 - 110 ) (96% - 96% ) Highest temp of 37.3 C was recorded at 05/01 19:18 Pain reported at 05/01 19:18: 0 = None Physical Exam by System Constitutional: frail appearing, awake/alert/oriented x3, no distress, alert and cooperative Eyes: PERRL, EOMI, clear sclera ENMT: mucous membranes moist, no apparent injury, no lesions seen Head/Neck: Neck supple, no apparent injury, thyroid without mass or tenderness, No JVD, trachea midline, no bruits Respiratory/Thorax: Patent airways, CTAB, normal breath sounds with good chest expansion, thorax symmetric Cardiovascular: Regular, rate and rhythm, no murmurs, 2+ equal pulses of the extremities, normal S 1and S 2 Gastrointestinal: Nondistended, soft, non-tender, no rebound tenderness or guarding, no masses palpable, no organomegaly, +BS, no bruits Musculoskeletal: ROM intact, no joint swelling, normal strength Extremities: normal extremities, no cyanosis edema, contusions or wounds, no clubbing Neurological: alert and oriented x3, intact senses, motor, response and reflexes, normal strength Lymphatic: No significant lymphadenopathy Psychological: Appropriate mood and behavior Skin: Warm and dry, no lesions, no rashes Recent Lab Results Results: CBC: 05/02/2020 02:22 \ Hgb / \ 11.2 L / WBC Plt 17.9 H 378 / Hct \ / 34.1 L \ RBC: 3.81 L MCV: 90 CMP: 05/02/2020 02:22 NA+ Cl- BUN / 138 101 84 H / -------- Glucose --- 184 H K+ HCO3- Creat \ 4.2 26 2.31 H \ \ T Bili / \ 0.7 / AST x ---- x ALT 18 x ---- x 64 H / Alk P \ / 79 \ Calcium : 12.3 H Anion Gap : 15 Albumin : 3.0 L T Protein : 5.5 L Coagulation: 05/02/2020 02:21 PT / 28.4 H / -------< INR < 2.4 H PTT\ 25 \ Radiology Results Results: see OSH records for imaging study results Assessment and Plan: Impression 1: hypercalcemia Plan for Impression 1: check CMP ionized calcium IV volume resuscitation with normal saline consult endocrinology in am- appreciate input Impression 2: moris's disease Plan for Impression 2: on hydrocortisone- continue previous dose Impression 3: UTI Plan for Impression 3: will repeat urinalysis and culture, rx UTI if present Impression 4: acute kidney injury on CKD Plan for Impression 4: would review records to ascertain what is her baseline creatinine CMP STAT consider renal imaging, nephrology consult Impression 5: DVT/PE on wafarin anticoagulation Plan for Impression 5: check INR STAT goal INR 2-3 continue warfarin if INR <3 INR daily Impression 6: dispo Plan for Impression 6: Pt is DNR-CCA per order signed on pt's chart I did confirm that these are her wishes- pt also wishes to decline elective intubation order entered in [facility] to reflect pt's wishes Signatures/Attestation/C ertification: Note Completion Attending Provider Inpatient Certification StatementI certify this patients need for inpatient care based on the above documentation including; the order to admit as inpatient, the anticipated length of stay, diagnosis, problem list and plan of care, and discharge plan. Admission Order - View OnlyCurrent Admission Order. Admit to Inpatient Adult Community Transfer to, [facility]: [address] Admitting Diagnosis, E83.52 Hypercalcemia , Attending Provider Mega Ornelas Level of Care, Telemetry Mega Ornelas Admission Order Certification order has been placed by Mega Ornelas Electronic Signatures for Addendum Section: Leigh Billy) (Signed Addendum 02-May-2020 12:26) Will also give 2 doses of calcitonin Electronic Signatures: Mega Ornelas) (Signed 02-May-2020 07:35) Authored: History of Present Illness, Allergies, Medications Prior to Admission, Objective, Assessment and Plan, Note Completion Last Updated: 02-May-2020 12:26 by Leigh Billy) Normal [facility] LACTATEon 05-02-2020 Lactate [Moles/Vol] 1.8 mmol/L Normal 0.4 - 2.0 [facility] Comment on above: Result Comment: Nadia puncture immediately after or during the administration of Metamizole may lead to falsely low results. Testing should be performed immediately prior to Metamizole dosing. Performed By: #### C BC #### [facility] [address] [place], [place] [id number] MAGNESIUMon 05-02-2020 Magnesium [Mass/Vol] 2.00 mg/dL Normal 1.60 - 2.40 [facility] Comment on above: Performed By: #### M G ####[facility] [place], [place] [id number] MANUAL DIFFERENTIALon 2020 % EOSINOPHIL 0.0 % Normal 0.0 - 6.0 [facility] Comment on above: Performed By: #### P R12 #### [facility] [address] [place] [address] % METAMYELOCYTE 3.0 % Normal 0.0 - 0.0 [facility] Comment on above: Performed By: #### P R12 #### [facility] [address] [place] [address] % MYELOCYTE 2.0 % Normal 0.0 - 0.0 [facility] Comment on above: Performed By: #### P R12 #### [facility] [address] [place] [address] % SEG NEUTROPHIL 81.0 % Normal 40.0 - 80.0 [facility] Comment on above: Result Comment: Perc ent differential counts (%) should be interpreted in the context of the absolute cell counts (cells/L). Performed By: #### P R12 #### [facility] [address] [place] [address] ANC 14.86 x10E9/L High 1.60 - 5.50 [facility] Comment on above: Performed By: #### P R12 #### [facility] [address] [place] [address] Band form neutrophils/100 WBC (Bld) 2.0 % Normal 0.0 - 5.0 [facility] Comment on above: Performed By: #### P R12 #### [facility] [address] [place] [address] BAND NEUTROPHIL 0.36 x10E9/L Normal 0.00 - 0.50 [facility] Comment on above: Performed By: #### P R12 #### [facility] [address] [place] [address] BASOPHIL 0.00 x10E9/L Normal 0.00 - 0.10 [facility] Comment on above: Performed By: #### P R12 #### [facility] [address] [place] [address] Basophils/100 WBC (Bld) 0.0 % Normal [facility] Comment on above: Performed By: #### P R12 #### [facility] [address] [place] [address] EOSINOPHIL 0.00 x10E9/L Normal 0.00 - 0.40 [facility] Comment on above: Performed By: #### P R12 #### [facility] [address] [place] [address] LYMPHOCYTE 1.07 x10E9/L Normal 0.80 - 3.00 [facility] Comment on above: Performed By: #### P R12 #### [facility] [address] [place] [address] Lymphocytes/100 WBC (Bld) 6.0 % Normal 13.0 - 44.0 [facility] Comment on above: Performed By: #### P R12 #### [facility] [address] [place] [address] Metamyelocytes/100 WBC (Bld) 0.54 x10E9/L Abnormal 0.00 - 0.00 [facility] Comment on above: Performed By: #### P R12 #### [facility] [address] [place] [address] MONOCYTE 1.07 x10E9/L High 0.05 - 0.80 [facility] Comment on above: Performed By: #### P R12 #### [facility] [address] [place] [address] Monocytes/100 WBC (Bld) 6.0 % Normal 2.0 - 10.0 [facility] Comment on above: Performed By: #### P R12 #### [facility] [address] [place] [address] MYELOCYTE 0.36 x10E9/L Abnormal 0.00 - 0.00 [facility] Comment on above: Performed By: #### P R12 #### [facility] [address] [place] [address] SEG NEUTROPHIL 14.50 x10E9/L High 1.60 - 5.00 [facility] Comment on above: Performed By: #### P R12 #### [facility] [address] [place] [address] OSMOLALITY, SERUMon 05-03-19 21 OSMOLALITY, SERUM 322 mOsm/kg H2O High 280 - 300 [facility] Comment on above: Performed By: #### O SMOL ####[facility] [place], [place] [id number] Order Reconciliationon 05-02 Order Reconciliation Page 1 Admission Reconciliation Document Reconciliation Type: Admission requested on behalf of Nani Stanley (Physician) done by Nani Stanley) Admission - Reconciliation: 02-May-2020 02:08 by: Mega Ornelas) Admission - Reset to Incomplete: 02-May-2020 08:26 by: Nani Stanley) Admission - Reconciliation: 02-May-2020 08:29 by: Nani Stanley) Home MedicationsEnteredLast Dose TakenReconciled with current Order Reconciliation Comment/ Additional Information acetaminophen 1000 milligram(s) orally every 6 hours, As [id number] UNKNOWN UNKNOWN Reviewed and Held atorvastatin 10 mg oral tablet 1 tab(s) orally once a day (at bedtime) [id number] UNKNOWN Atorvastatin Tablet (LIPITOR)DOSE = 10 mg Oral Dailyatorvastatin 10 mg oral tablet continued as the inpatient order Atorvastatin Calmoseptine 0.44%-20.6% topical ointment Apply topically to affected area 2 times a day, As [id number]- 2021 PM Menthol 0.44% - Zinc Oxide 20.625% Topical Ointment (CALMOSEPTINE)DOSE = 1 application(s) Topical 3 Times a DayApply to SacrumCalmoseptine 0.44%-20.6% topical ointment continued as the inpatient order Menthol 0.44% - Zinc Oxide 20.625% Topical cholecalciferol 1000 intl units (25 mcg) oral tablet 1 tab(s) orally once a day UNKNOWN Reviewed and Held cyanocobalamin 1000 mcg oral tablet 1 tab(s) orally once a qhq99-Bci-3588 UNKNOWN UNKNOWN Reviewed and Held dupilumab 300 milligram(s) subcutaneous every 2 -[id number]-[id number] UNKNOWN Reviewed and Held Florinef Acetate 0.1 mg oral tablet 1 tab(s) orally once a ahp42-Tfd-3926 UNKNOWN UNKNOWN Fludrocortisone Tablet (FLORINEF)DOSE = 0.1 mg Oral Daily Florinef Acetate 0.1 mg oral tablet continued as the inpatient order Fludrocortisone fluticasone nasal 1 spray(s) nasal once a day (at bedtime) WN UNKNOWN Fluticasone 50 microgram/ Nasal Inhalation (FLONASE)DOSE = 1 spray(s) Each Nostril DailyNotes from Pharmacy: RCRAfluticasone nasal continued as the inpatient order Fluticasone 50 microgram/ Nasal Inhalation hydrocortisone 10 mg oral tablet 1 tab(s) orally once a [id number]-[id number] UNKNOWN Hydrocortisone Tablet (CORTEF)DOSE = 10 mg Oral Dailyhydrocortisone 10 mg oral tablet continued as the inpatient order Hydrocortisone hydrocortisone 20 mg oral tablet 1 tab(s) orally once a [id number]-Iyi-[id number] UNKNOWN Hydrocortisone Tablet (CORTEF)DOSE = 20 mg Oral Daily 1800 hydrocortisone 20 mg oral tablet continued as the inpatient order Hydrocortisone lactobacillus acidophilus-lactobacillu s casei oral delayed release capsule 1 cap(s) orally once a [id number]-[id number] UNKNOWN Reviewed and Held nitroglycerin 0.4 mg sublingual tablet 1 tab(s) sublingual every 5 minutes, As Gasvna19-Yri-[id number] UNKNOWN Nitroglycerin SubLingual Tablet (NITROSTAT)DOSE = 0.4 mg SubLingual Every 5 Minutes, PRN Anginanitroglycerin 0.4 mg sublingual tablet continued as the inpatient order Nitroglycerin SubLingual warfarin 2.5 mg oral tablet 1 tab(s) orally once a rkp21-[id number]-689 1 PM Blood in Urine, Monitor for Dailywarfarin 2.5 mg oral tablet continued as the inpatient order Blood in Urine, Monitor for; warfarin 2.5 mg oral tablet continued as the inpatient order Bleeding, Monitor for; warfarin 2.5 mg oral tablet continued as the inpatient order Nursing to ensure Your Guide to Taking Warfarin booklet provided to patient; warfarin 2.5 mg oral tablet continued as the inpatient order Communication Order; warfarin 2.5 mg oral tablet continued as the inpatient order Warfarin warfarin 2.5 mg oral tablet 1 tab(s) orally once a [id number]-[id number]-Cqg-977 1 PM Bleeding, Monitor for Call physician with observed or suspected bleedingwarfarin 2.5 mg oral tablet continued as the inpatient order Blood in Urine, Monitor for; warfarin 2.5 mg oral tablet continued as the inpatient order Bleeding, Monitor for; warfarin 2.5 mg oral tablet continued as the inpatient order Nursing to ensure Your Guide to Taking Warfarin booklet provided to patient; warfarin 2.5 mg oral tablet continued as the inpatient order Communication Order; warfarin 2.5 mg oral tablet continued as the inpatient order Warfarin warfarin 2.5 mg oral tablet 1 tab(s) orally once a iuh56-[id number]-Ymf-090 1 PM Nursing to ensure Your Guide to Taking Warfarin booklet provided to patient Once This booklet includes:Compliance issuesDietary adviceFollow-up monitoringPotential for adverse drug reactions and interactionswarfarin 2.5 mg oral tablet continued as the inpatient order Blood in Urine, Monitor for; warfarin 2.5 mg oral tablet continued as the inpatient order Bleeding, Monitor for; warfarin 2.5 mg oral tablet continued as the inpatient order Nursing to ensure Your Guide to Taking Warfarin booklet provided to patient; warfarin 2.5 mg oral tablet continued as the inpatient order Communication Order; warfarin 2.5 mg oral tablet continued as the inpatient order Warfarin warfarin 2.5 mg oral tablet 1 tab(s) orally once a gyf40-[id number]-Aga-049 1 PM Communication Order INR Goal 2 to 3warfarin 2.5 mg oral tablet continued as the inpatient order Blood in Urine, Monitor for; warfarin 2.5 mg oral tablet continued as the inpatient order Bleeding, Monitor for; warfarin 2.5 mg oral tablet continued as the inpatient order Nursing to ensure Your Guide to Taking Warfarin booklet provided to patient; warfarin 2.5 mg oral tablet continued as the inpatient order Communication Order; warfarin 2.5 mg oral tablet continued as the inpatient order Warfarin warfarin 2.5 mg oral tablet 1 tab(s) orally once a [id number]-[id number]-476 1 PM Warfarin Tablet (COUMADIN)DOSE = 2.5 mg Oral DailyClinician Notes: Give dose at 1800, unless otherwise specified by physician.Enteral feedings are held 1 hour pre and post dosewarfarin 2.5 mg oral tablet continued as the inpatient order Blood in Urine, Monitor for; warfarin 2.5 mg oral tablet continued as the inpatient order Bleeding, Monitor for; warfarin 2.5 mg oral tablet continued as the inpatient order Nursing to ensure Your Guide to Taking Warfarin booklet provided to patient; warfarin 2.5 mg oral tablet continued as the inpatient order Communication Order; warfarin 2.5 mg oral tablet continued as the inpatient order Warfarin Additional Current Orders Acetaminophen Tablet (TYLENOL)DOSE = 650 mg Oral Every 4 Hours, PRN Temp Greater Than or Equal to 38.0 C hydrALAZINE (APRESOLINE) Injectable DOSE = 5 mg IntraVenous Push Every 6 Hours, PRN Systolic blood pressure above 175 Ondansetron Injectable (ZOFRAN)DOSE = 4 mg IntraVenous Push Every 4 Hours, PRN Nausea and/or Vomiting Sodium Chloride 0.9% Infusion IV Bag Volume = 1,000 mL Run at: 100 mL/hr IntraVenous Normal [facility] PARATHYROID HORMONE,INTACTon 05-02-2020 PARATHYROID HORMONE,INTACT Canceled Normal [facility] Comment on above: Order Comment: TEST PARATHYROID HORMONE,INTACT WAS CANCELLED, 05/02/2020 12:20 added per RN05/02/2020 12:20. Performed By: #### P TH ####[facility] [place], [place] [id number] PHOSPHORUSon 05-02-2020 Phosphate [Mass/Vol] 6.4 mg/dL High 2.5 - 4.9 [facility] Comment on above: Result Comment: The performance characteristics of phosphorus testing in heparinized plasma have been validated by the individual laboratory site where testing is performed. Testing on heparinized plasma is not approved by the FDA; however, such approval is not necessary. Performed By: #### C MP #### [address] [id number] PREALBUMINon 05-02-2020 Prealbumin [Mass/Vol] 28.0 mg/dL Normal 18.0 - 40.0 [facility] Comment on above: Performed By: #### C BC #### [facility] [address] [place], [place] [id number] PROTEIN ELECTROPHORESIS + IM MUNOFIXATION, SERUMon 05-02-2020 Protein [Mass/Vol] 5.5 g/dL Low 6.4 - 8.2 [facility] Comment on above: Performed By: #### I FE2 ####[facility] [place], [place] [id number] [place] [address] Performed By: #### C MP #### [address] [id number] PROTEIN ELECTROPHORESIS,SERU 05-02-2020 Albumin [Mass/Vol] Canceled Normal [facility] Comment on above: Order Comment: TEST PROTEIN ELECTROPHORESIS,SERUM WAS CANCELLED, 05/02/2020 12:20 added per RN 05/02/2020 12:20. Performed By: #### S PE2 #### [facility] [address] [place] [address] ALPHA 1 GLOBULIN Canceled Normal [facility] Comment on above: Order Comment: TEST PROTEIN ELECTROPHORESIS,SERUM WAS CANCELLED, 05/02/2020 12:20 added per RN 05/02/2020 12:20. Performed By: #### S PE2 #### [facility] [address] [place] [address] ALPHA 2 GLOBULIN Canceled Normal [facility] Comment on above: Order Comment: TEST PROTEIN ELECTROPHORESIS,SERUM WAS CANCELLED, 05/02/2020 12:20 added per RN 05/02/2020 12:20. Performed By: #### S PE2 #### [facility] [address] [place] [address] BETA GLOBULIN Canceled Normal [facility] Comment on above: Order Comment: TEST PROTEIN ELECTROPHORESIS,SERUM WAS CANCELLED, 05/02/2020 12:20 added per RN 05/02/2020 12:20. Performed By: #### S PE2 #### [facility] [address] [place] [address] GAMMA GLOBULIN Canceled Normal [facility] Comment on above: Order Comment: TEST PROTEIN ELECTROPHORESIS,SERUM WAS CANCELLED, 05/02/2020 12:20 added per RN 05/02/2020 12:20. Performed By: #### S PE2 #### [facility] [address] [place] [address] INTERPRETATION Canceled Normal [facility] Comment on above: Order Comment: TEST PROTEIN ELECTROPHORESIS,SERUM WAS CANCELLED, 05/02/2020 12:20 added per RN 05/02/2020 12:20. Performed By: #### S PE2 #### [facility] [address] [place] [address] Protein [Mass/Vol] Canceled Normal [facility] Comment on above: Order Comment: TEST PROTEIN ELECTROPHORESIS,SERUM WAS CANCELLED, 05/02/2020 12:20 added per RN 05/02/2020 12:20. Performed By: #### S PE2 #### [facility] [address] [place] [address] Order Comment: TEST PTH RELATED PROTEIN WAS CANCELLED, 05/02/2020 12:20 added per RN05/02/2020 12:20. Performed By: #### P R12 #### [facility] [address] [place] [address] Patient Profile - Adult v2on 05-02-2020 Patient Profile - Adult v2 Profile: Initial Info: How to be AddressedLinda Spoken Language PreferredEnglish Source of Informationhealth record; patient Stated Reason for Admissionpatient states I fell. Primary Contact Name and NumberSouleymane Lazar - [phone] (daughter) Other Contact Names and NumbersWilman Peralta - [phone] - Next of Kin - Patients Patient Belongingsnone Arrived Fromhospital Medications Brought to Hospitalno Are you currently using the Personal Electronic Health Record or ReqlutShoptiquesno Wants Family/Rep Notified of Admissionyes, primary contact Notify PCPnotify PCP Informed of Patient Visiting Rightsyes General Health: Weight in kg74.5 kilogram(s) Weight in ltf911.2 pound(s) Weight Methodactual (measured) Scale Typebed Height in cm162.5 centimeter(s) Height in feet5 feet Height in inches4 inch(es) Height Methodstated BMI (kg/m2)28.213 square meter RSP Based Care: How would you like to participate in your care! What is the number one concern for you during this hospitalization! What is the most important thing we can do to support you during this hospitalization! Is there anything we need to know to best care for you! Substance: Current or Former Substance Use never: Cigarette/Tobacco, e-Cigarette/Vaping, Alcohol, Street Drugs Health Mgmt: Symptoms/Conditions Managed at Homegenitourinary; musculoskeletal; cardiovascular; endocrine Cardiovascular Symptoms/Conditionshyper tension Cardiovascular Management Strategiesmedication therapy Cardiovascular Managementnot managed Endocrine Managementnot managed; managed Endocrine Symptoms/Conditions CommentAddisons Disease Genitourinary Symptoms/Conditionsrenal disease Genitourinary Managementnot managed Genitourinary Symptoms/Conditions Commentckd stage 3 Musculoskeletal Symptoms/Conditionsosteo porosis Musculoskeletal Management Strategiesactivity; adequate rest Musculoskeletal Managementmanaged Barriers to Managing Healthage; stress of chronic illness Relationship/Environ: Resource/Environmental Concernsnone Primary Source of Support/Comfortchild(ysabel ) Lives Withspouse Living Arrangementshouse Services [facility] Anticipated Transition [place] Significant IndicatorsComplete Information Review: Allergies, Home Meds and Significant Events have been Reviewed and Verified with Patient/Familyyes ALLERGY, INTOLERANCE, ADVERSE EVENT: Allergies: ciprofloxacin: Drug, Rash, Active penicillins: Drug Category, Rash, Active Electronic Signatures: Nehemias Mercado) (Signed 02-May-2020 01:28) Authored: Initial Info, General Health, RSP Based Care, Substance, Health Mgmt, Relationship/Environ, Additional Information Last Updated: 02-May-2020 01:28 by Nehemias Mercado) Normal [facility] RED CELL MORPHOLOGYon 2020 RBC morphology finding Nom (Bld) SEE COMMENT Normal [facility] Comment on above: Result Comment: NO S IGNIFICANT RBC ABNORMALITIES SEEN ON SMEAR REVIEW. Performed By: #### C A #### [facility] [address] [place], [place] [id number] RETICULOCYTESon 05-02-2020 RETIC # 0.054 x10E12/L Normal 0.017 - 0.110 [facility] Comment on above: Performed By: #### R ETIC ####[facility] [place], [place] [id number] RETIC % 1.4 % Normal 0.5 - 2.0 [facility] Comment on above: Performed By: #### R ETIC ####[facility] [place], [place] [id number] RETIC-HB 37 pg Normal 28 - 38 [facility] Comment on above: Performed By: #### R ETIC ####[facility] [place], [place] [id number] SPE PATH REVIEWon 05-02-2020 PATH REVIEW-SPE Canceled Normal [facility] Comment on above: Order Comment: TEST SPE PATH REVIEW WAS CANCELLED, 05/02/2020 12:20 added per RN 112:20. Result Comment: By h er/his signature above, the Pathologist listed as making the final interpretation certifies that she/he has personally reviewed this case. Performed By: #### P R12 #### [facility] [address] [place] [address] THYROXINE,FREEon 05-02-2020 THYROXINE,FREE 1.30 ng/dL High 0.61 - 1.12 [facility] Comment on above: Result Comment: Thyr oxine Free testing is performed using different testing methodology at [facility] than at other [facility]. Direct result comparisons should only be made within the same method. . Biotin can cause falsely elevated free T4 results. Patients taking a Biotin dose of up to 10 mg/day should refrain from taking Biotin for 24 hours before sample collection. Patient taking a Biotin dose of >10 mg/day should consult with their physician or the laboratory before the blood draw. Performed By: #### T 4FRE ####[facility] [place], [place] [id number] TSHon 05-02-2020 TSH Qn 0.69 m[IU]/L Normal 0.44 - 3.98 [facility] Comment on above: Result Comment: TSH testing is performed using different testing methodology at [facility] than at other [facility]. Direct result comparisons should only be made within the same method. Performed By: #### C BC #### [facility] [address] [place], [place] [id number] URIC ACIDon 05-02-2020 Urate [Mass/Vol] 10.4 mg/dL High 2.3 - 6.7 [facility] Comment on above: Result Comment: Nadia puncture immediately after or during the administration of Metamizole may lead to falsely low results. Testing should be performed immediately prior to Metamizole dosing. Performed By: #### U SANDI ####[facility] [place], [place] [id number] US RENAL BILATon 05-02-2020 US RENAL BILAT Patient Name: LINDA PERALTA STUDY: US RENAL BILAT; 05/02/2020 12:38 pm INDICATION: ANGELA. COMPARISON: None. ACCESSION NUMBER(S): [id number] ORDERING CLINICIAN: NANI STANLEY TECHNIQUE: Multiple images of the kidneys were obtained , with color Doppler for blood flow. It is noted the exam was limited due to patient habitus and inability to suspend respiration. FINDINGS: RIGHT KIDNEY: The right kidney measures 12.4 cm in length. The renal cortex is within normal limits. A there several cortical cysts, the largest measuring 1.4 cm at the upper pole. There is also a cyst measuring 1.2 cm at the midpole and may be parapelvic. However, there are 2 relative linear echogenicities along the wall probably calcifications that may indicate a Bosniak 2 or 2 F cyst. There is also a 6 mm echogenicity at the upper pole indicating a nonobstructing calculus. Color Doppler demonstrates blood flow. LEFT KIDNEY: Status post nephrectomy BLADDER: The urinary bladder is unremarkable in appearance. A right ureteral jet was evident. OTHER FINDINGS: There Is an approximate 3.8 x 2.6 cm somewhat poorly defined hypoechogenicity medial to the kidney at the level of the hilum. This is nonspecific and could be due to a complex exophytic cyst containing hemorrhage or debris as there was no demonstration of blood flow by color Doppler, but a solid neoplasm or adenopathy is possible. CT renal protocol for this and the cyst with calcification on a nonemergent basis would be recommended. IMPRESSION: No evidence of hydronephrosis. Nonobstructing calculus at the upper pole. Complex cyst with calcification given hypodensity at the level of the renal hilum for which nonemergent CT would be recommended for further evaluation. Electronically signed by: ALBERTO HARRIS MD Normal [facility] VITAMIN D 1,25-DIHYDROXYon 0 05-02-2020 VITAMIN D 1,25-DIHYDROXY Canceled Normal [facility] Comment on above: Order Comment: TEST VITAMIN D 1,25-DIHYDROXY WAS CANCELLED, 05/02/2020 12:20 added per RN05/02/2020 12:20. Performed By: #### V TDDI ####[facility] [id number] [place] [id number] VITAMIN D, 25-HYDROXYon 04-20 VITAMIN D, 25-HYDROXY 33 ng/mL Normal [facility] Comment on above: Result Comment: . DEFICIENCY: < 20 NG/ML INSUFFICIENCY: 20-29 NG/ML SUFFICIENCY: 30-100 NG/ML THIS ASSAY ACCURATELY QUANTIFIES THE SUM OF VITAMIN D3, 25-HYDROXY AND VIT D2,25-HYDROXY. Performed By: #### C BC #### [address] [id number] Culture, urine Bacteria identified Cx Nom (U) Positive [facility] Work Phone: Bacteria identified Cx Nom (U) Escherichia coli [facility] Work Phone: Laboratory - Microbiology an d Antimicrobial susceptibility Bacteria identified Cx Nom (Bld) No growth in 5 days. [facility] Work Phone: Vital Signs Date Time Vital Sign Value Performing Clinician Facility 08-07-2024 21:30-0400 Diastolic blood pressure 88 mm[Hg] Dr. Amos Floyd MD Work Phone: 1(889)651-682816 [place] [address] 08-07-2024 21:30-0400 Heart rate 101 /min Dr. Amos Floyd MD Work Phone: 1(676)254-991851 [place] [address] 08-07-2024 21:30-0400 Respiratory rate 23 /min Dr. Amos Floyd MD Work Phone: 2(220)084-139351 [place] [address] 08-07-2024 21:30-0400 SaO2% (BldA) [Mass fraction] 98 % Dr. Amos Floyd MD Work Phone: 1(038)666-569751 [place] [address] 08-07-2024 21:30-0400 Systolic blood pressure 123 mm[Hg] Dr. Amos Floyd MD Work Phone: 0(156)234-593351 [place] [address] 08-07-2024 21:13-0400 Body temperature 98.4 [degF] Dr. Amos Floyd MD Work Phone: 4(287)290-091251 [place] [address] 08-07-2024 16:00-0400 Body mass index (BMI) [Ratio] 27.3 kg/m2 Dr. Amos Floyd MD Work Phone: 4(000)225-624116 [place] [address] 08-07-2024 16:00-0400 Body weight [address] Amos Floyd MD Work Phone: 7(841)056-572851 [place] [address] 08-07-2024 15:49-0400 Body height 157.[address] Amos Floyd MD Work Phone: 4(346)748-751751 [place] [address] 08-05-2024 07:22-0400 Body height 157.[address] Amos Floyd MD Work Phone: 4(729)339-361451 [place] [address] 08-05-2024 07:22-0400 Body weight 66.[address] Amos Floyd MD Work Phone: [facility] 08-01-2024 16:17-0400 Body mass index (BMI) [Ratio] 26.6 kg/m2 Dr. Amos Floyd MD Work Phone: [facility] 07-24-2024 10:50-0400 Body mass index (BMI) [Ratio] 26.53 kg/m2 Amos Floyd MD Work Phone: [facility] 07-24-2024 10:50-0400 Body weight 65.8 kg Amos Floyd MD Work Phone: [facility] 07-24-2024 10:50-0400 Diastolic blood pressure 82 mm[Hg] Amos Floyd MD Work Phone: [facility] 07-24-2024 10:50-0400 Heart rate 80 /min Amos Floyd MD Work Phone: [facility] 07-24-2024 10:50-0400 Respiratory rate 20 /min Amos Floyd MD Work Phone: [facility] 07-24-2024 10:50-0400 Systolic blood pressure 126 mm[Hg] Amos Floyd MD Work Phone: [facility] 07-23-2024 06:19-0400 Body mass index (BMI) [Ratio] 26.6 kg/m2 Dr. Amos Floyd MD Work Phone: [facility] 07-23-2024 06:19-0400 Body weight 66.[address] Amos Floyd MD Work Phone: [facility] 07-23-2024 06:19-0400 Diastolic blood pressure 93 mm[Hg] Dr. Amos Floyd MD Work Phone: [facility] 07-23-2024 06:19-0400 Heart rate 98 /min Dr. Amos Floyd MD Work Phone: [facility] 07-23-2024 06:19-0400 Respiratory rate 18 /min Dr. Amos Floyd MD Work Phone: [facility] 07-23-2024 06:19-0400 SaO2% (BldA) [Mass fraction] 100 % Dr. Amos Floyd MD Work Phone: [facility] 07-23-2024 06:19-0400 Systolic blood pressure 142 mm[Hg] Dr. Amos Floyd MD Work Phone: [facility] 04-29-2024 08:22-0400 Body mass index (BMI) [Ratio] 26.5 kg/m2 Dr. Amos Floyd MD Work Phone: 0(166)309-081851 [place] [address] 04-29-2024 08:22-0400 Body weight 65.[address] Amos Floyd MD Work Phone: 0(896)450-759351 [place] [address] 04-29-2024 08:22-0400 Diastolic blood pressure 91 mm[Hg] Dr. Amos Floyd MD Work Phone: 0(855)326-302216 [place] [address] 04-29-2024 08:22-0400 Heart rate 97 /min Dr. Amos Floyd MD Work Phone: 8(764)154-800951 [place] [address] 04-29-2024 08:22-0400 Respiratory rate 18 /min Dr. Amos Floyd MD Work Phone: 9(402)345-643551 [place] [address] 04-29-2024 08:22-0400 SaO2% (BldA) [Mass fraction] 94 % Dr. Amos Floyd MD Work Phone: [facility] 04-29-2024 08:22-0400 Systolic blood pressure 123 mm[Hg] Dr. Amos Floyd MD Work Phone: [facility] 01-23-2024 10:10-0500 Body height 157.5 cm mAos Floyd MD Work Phone: [facility] 01-23-2024 10:10-0500 Body mass index (BMI) [Ratio] 26.01 kg/m2 Amos Floyd MD Work Phone: [facility] 01-23-2024 10:10-0500 Body temperature 97.5 [degF] Amos Floyd MD Work Phone: [facility] 01-23-2024 10:10-0500 Body weight 64.5 kg Amos Floyd MD Work Phone: [facility] 01-23-2024 10:10-0500 Diastolic blood pressure 76 mm[Hg] Amos Floyd MD Work Phone: [facility] 01-23-2024 10:10-0500 Heart rate 88 /min Amos Floyd MD Work Phone: [facility] 01-23-2024 10:10-0500 Respiratory rate 16 /min Amos Floyd MD Work Phone: [facility] 01-23-2024 10:10-0500 Systolic blood pressure 128 mm[Hg] Amos Floyd MD Work Phone: [facility] 09-19-2023 11:00-0400 Diastolic blood pressure 87 mm[Hg] Okle Sienna PT Work Phone: [facility] 09-19-2023 11:00-0400 Heart rate 90 /min Kole Sienna PT Work Phone: [facility] 09-19-2023 11:00-0400 Systolic blood pressure 131 mm[Hg] Kole Sienna PT Work Phone: [facility] 09-12-2023 11:00-0400 Diastolic blood pressure 81 mm[Hg] Kole Sienna PT Work Phone: [facility] 09-12-2023 11:00-0400 Heart rate 99 /min Kole Sienna PT Work Phone: [facility] 09-12-2023 11:00-0400 Systolic blood pressure 126 mm[Hg] Kole Sienna PT Work Phone: [facility] 09-08-2023 14:00-0400 Diastolic blood pressure 79 mm[Hg] Kole Sienna PT Work Phone: [facility] 09-08-2023 14:00-0400 Heart rate 98 /min Kole Sienna PT Work Phone: [facility] 09-08-2023 14:00-0400 Systolic blood pressure 115 mm[Hg] Kole Sienna PT Work Phone: [facility] 08-30-2023 14:00-0400 Diastolic blood pressure 79 mm[Hg] Kole Sienna PT Work Phone: [facility] 08-30-2023 14:00-0400 Heart rate 79 /min Kole Sienna PT Work Phone: [facility] 08-30-2023 14:00-0400 Systolic blood pressure 115 mm[Hg] Kole Sienna PT Work Phone: [facility] 08-21-2023 11:00-0400 Diastolic blood pressure 83 mm[Hg] Gisel Kashuba [employer]ARMENT STE[employer]ER Work Phone: [facility] 08-21-2023 11:00-0400 Heart rate 81 /min Gisel Kashuba [employer]ARMENT STEAMER Work Phone: [facility] 08-21-2023 11:00-0400 Systolic blood pressure 118 mm[Hg] Gisel Kashuba GARMENT STEAMER Work Phone: [facility] 08-09-2023 09:00-0400 Diastolic blood pressure 87 mm[Hg] Kole Sienna PT Work Phone: [facility] 08-09-2023 09:00-0400 Heart rate 78 /min Kole Sienna PT Work Phone: [facility] 08-09-2023 09:00-0400 Systolic blood pressure 139 mm[Hg] Kole Sienna PT Work Phone: [facility] 08-02-2023 09:00-0400 Diastolic blood pressure 100 mm[Hg] Kole Sienna PT Work Phone: [facility] Comment on above: Right when entering clinic upon sitting. 08-02-2023 09:00-0400 Heart rate 77 /min Kole Sienna PT Work Phone: [facility] 08-02-2023 09:00-0400 Systolic blood pressure 155 mm[Hg] Kole Sienna PT Work Phone: [facility] Comment on above: Right when entering clinic upon sitting. 07-19-2023 09:00-0400 Diastolic blood pressure 108 mm[Hg] Kole Sienna PT Work Phone: [facility] Comment on above: Resting. 07-19-2023 09:00-0400 Heart rate 85 /min Kole Sienna PT Work Phone: [facility] 07-19-2023 09:00-0400 Systolic blood pressure 164 mm[Hg] Kole Sienna PT Work Phone: [facility] Comment on above: Resting. 07-05-2023 09:00-0400 Diastolic blood pressure 115 mm[Hg] Kole Sienna PT Work Phone: [facility] Comment on above: Measured 3 times automatically and then once manually with measurements around the same. 07-05-2023 09:00-0400 Heart rate 92 /min Kole Sienna PT Work Phone: [facility] 07-05-2023 09:00-0400 Systolic blood pressure 170 mm[Hg] Kole Sienna PT Work Phone: [facility] Comment on above: Measured 3 times automatically and then once manually with measurements around the same. 06-30-2023 09:39-0400 Body mass index (BMI) [Ratio] 25.61 kg/m2 Amos Floyd MD Work Phone: [facility] 06-30-2023 09:39-0400 Body weight 63.5 kg Amos Floyd MD Work Phone: [facility] 06-30-2023 09:39-0400 Diastolic blood pressure 100 mm[Hg] Amos Floyd MD Work Phone: [facility] 06-30-2023 09:39-0400 Heart rate 78 /min Amos Floyd MD Work Phone: [facility] 06-30-2023 09:39-0400 Respiratory rate 16 /min Amos Floyd MD Work Phone: [facility] 06-30-2023 09:39-0400 Systolic blood pressure 164 mm[Hg] Amos Floyd MD Work Phone: [facility] 06-28-2023 11:00-0400 Diastolic blood pressure 96 mm[Hg] Koleberny MoralesSienna PT Work Phone: [facility] Comment on above: At beginning of session. 06-28-2023 11:00-0400 Heart rate 85 /min Koleberny MoralesSienna PT Work Phone: [facility] 06-28-2023 11:00-0400 Systolic blood pressure 144 mm[Hg] Kole Sienna PT Work Phone: [facility] Comment on above: At beginning of session. 06-21-2023 13:00-0400 Diastolic blood pressure 99 mm[Hg] Koleberny El PT Work Phone: [facility] 06-21-2023 13:00-0400 Heart rate 86 /min Koleberny MoralesSienna PT Work Phone: [facility] 06-21-2023 13:00-0400 Systolic blood pressure 150 mm[Hg] Kole Sienna PT Work Phone: [facility] 06-14-2023 11:00-0400 Diastolic blood pressure 106 mm[Hg] Koleberny MoralesSienna PT Work Phone: [facility] Comment on above: Initial. 06-14-2023 11:00-0400 Heart rate 87 /min Koleberny MoralesSienna PT Work Phone: [facility] 06-14-2023 11:00-0400 SaO2% (BldA) [Mass fraction] 98 % Kolebenry MoralesSienna PT Work Phone: [facility] 06-14-2023 11:00-0400 Systolic blood pressure 157 mm[Hg] Koleberny MoralesSienna PT Work Phone: [facility] Comment on above: Initial. 05-31-2023 15:33-0400 Diastolic blood pressure 77 mm[Hg] Dr. Amos Floyd Work Phone: [facility] 05-31-2023 15:33-0400 Heart rate 81 /min Dr. Amos Floyd Work Phone: 0(121)139-133451 [place] [address] 05-31-2023 15:33-0400 Systolic blood pressure 134 mm[Hg] Dr. Amos Floyd Work Phone: [facility] 05-31-2023 14:22-0400 Body height 157.[address] Amos Floyd Work Phone: 3(608)853-390451 [place] [address] 05-31-2023 14:22-0400 Body mass index (BMI) [Ratio] 25.6 kg/m2 Dr. Amos Floyd Work Phone: 5(651)608-113551 [place] [address] 05-31-2023 14:22-0400 Body temperature 97 [degF] Dr. Amos Floyd Work Phone: 0(234)041-927051 [place] [address] 05-31-2023 14:22-0400 Body weight 63.[address] Amos Floyd Work Phone: 4(530)015-626551 [place] [address] 05-31-2023 14:22-0400 Respiratory rate 14 /min Dr. Amos Floyd Work Phone: 9(930)138-863751 [place] [address] 05-31-2023 14:22-0400 SaO2% (BldA) [Mass fraction] 99 % Dr. Amos Floyd Work Phone: [facility] 05-31-2023 11:12-0400 Body temperature 97.11 [degF] Rocio Elizalde RO[address] ROLLER OPERATOR [employer] TEAM MANAGER Work Phone: [facility] 05-31-2023 11:12-0400 Body weight 64.[address] ROLLER OPERATOR [employer]OR[employer] TEAM MANAGER Work Phone: [facility] 05-31-2023 11:12-0400 Diastolic blood pressure 71 mm[Hg] Rocio Elizalde RO[address] ROLLER OPERATOR [employer]ORTS TEAM MANAGER Work Phone: [facility] 05-31-2023 11:12-0400 Heart rate 112 /min Rocio VivasFide RO[address] ROLLER OPERATOR [employer]ORTS TEAM MANAGER Work Phone: [facility] 05-31-2023 11:12-0400 Respiratory rate 14 /min Rocio [address]iz[address] ROLLER OPERATOR [employer]ORTS TEAM MANAGER Work Phone: [facility] 05-31-2023 11:12-0400 SaO2% (BldA) [Mass fraction] 97 % Rocio Viv[address] RO[address] ROLLER OPERATOR [employer] TEAM MANAGER Work Phone: [facility] 05-31-2023 11:12-0400 Systolic blood pressure 102 mm[Hg] Rocio VillafanaFide RO[address] ROLLER OPERATOR [employer] TEAM MANAGER Work Phone: [facility] 05-26-2023 11:11-0400 Body temperature 97.7 [degF] Elisa Mcdonough MD Work Phone: [facility] 05-26-2023 11:11-0400 Diastolic blood pressure 72 mm[Hg] Elisa Mcdonough MD Work Phone: [facility] 05-26-2023 11:11-0400 Heart rate 92 /min Elisa Mcdonough MD Work Phone: [facility] 05-26-2023 11:11-0400 Respiratory rate 17 /min Elisa Mcdonough MD Work Phone: [facility] 05-26-2023 11:11-0400 SaO2% (BldA) [Mass fraction] 94 % Elisa Mcdonough MD Work Phone: [facility] 05-26-2023 11:11-0400 Systolic blood pressure 106 mm[Hg] Elisa Mcdonough MD Work Phone: [facility] 05-24-2023 01:41-0400 Body height 157.5 cm Elisa Mcdonough MD Work Phone: [facility] 05-24-2023 01:41-0400 Body mass index (BMI) [Ratio] 25.85 kg/m2 Elisa Mcdonough MD Work Phone: [facility] 05-24-2023 01:41-0400 Body weight 64.1 kg Elisa Mcdonough MD Work Phone: [facility] 05-24-2023 00:20-0400 Body temperature 97.4 [degF] Dr. Amos Floyd Work Phone: [facility] 05-24-2023 00:20-0400 Diastolic blood pressure 91 mm[Hg] Dr. Amos Floyd Work Phone: [facility] 05-24-2023 00:20-0400 Heart rate 81 /min Dr. Amos Floyd Work Phone: [facility] 05-24-2023 00:20-0400 Respiratory rate 15 /min Dr. Amos Floyd Work Phone: [facility] 05-24-2023 00:20-0400 SaO2% (BldA) [Mass fraction] 96 % Dr. Amos Floyd Work Phone: [facility] 05-24-2023 00:20-0400 Systolic blood pressure 138 mm[Hg] Dr. Amos Floyd Work Phone: [facility] 05-23-2023 20:02-0400 Body height 157.[address] Amos Floyd Work Phone: [facility] 05-23-2023 20:02-0400 Body mass index (BMI) [Ratio] 25.8 kg/m2 Dr. Amos Floyd Work Phone: [facility] 05-23-2023 20:02-0400 Body weight 64.[address] Amos Floyd Work Phone: [facility] 05-23-2023 12:18-0400 Body weight 63.5 kg Rocio Elizalde APRN.SPORTS TEAM MANAGER Work Phone: [facility] 05-23-2023 12:18-0400 Diastolic blood pressure 82 mm[Hg] Rocio Elizalde APRN.SPORTS TEAM MANAGER Work Phone: [facility] 05-23-2023 12:18-0400 Heart rate 72 /min Rocio F[address] ROLLER OPERATOR [employer] TEAM MANAGER Work Phone: [facility] 05-23-2023 12:18-0400 Respiratory rate 14 /min Rocio F[address] ROLLER OPERATOR [employer] TEAM MANAGER Work Phone: [facility] 05-23-2023 12:18-0400 SaO2% (BldA) [Mass fraction] 96 % Rocio F[address] ROLLER OPERATOR [employer] TEAM MANAGER Work Phone: [facility] 05-23-2023 12:18-0400 Systolic blood pressure 106 mm[Hg] Rocio Fide [address] ROLLER OPERATOR [employer] TEAM MANAGER Work Phone: [facility] 05-15-2023 22:30-0400 Body temperature 98.1 [degF] Dr. Amos Floyd Work Phone: [facility] 05-15-2023 22:30-0400 Diastolic blood pressure 86 mm[Hg] Dr. Amos Floyd Work Phone: 1(998)684-150316 [place] [address] 05-15-2023 22:30-0400 Heart rate 74 /min Dr. Amos Floyd Work Phone: [facility] 05-15-2023 22:30-0400 Respiratory rate 16 /min Dr. Amos Floyd Work Phone: [facility] 05-15-2023 22:30-0400 SaO2% (BldA) [Mass fraction] 98 % Dr. Amos Floyd Work Phone: [facility] 05-15-2023 22:30-0400 Systolic blood pressure 146 mm[Hg] Dr. Amos Floyd Work Phone: [facility] 05-15-2023 14:44-0400 Body height 157.[address] Amos Floyd Work Phone: [facility] 05-15-2023 14:44-0400 Body mass index (BMI) [Ratio] 26 kg/m2 Dr. Amos Floyd Work Phone: 5(937)655-088851 [place] [address] 05-15-2023 14:44-0400 Body weight 64.[address] Amos Floyd Work Phone: 4(502)439-320251 [place] [address] 03-03-2023 08:55-0500 Body height 157.[address] Amos Floyd Work Phone: 5(099)287-947751 [place] [address] 03-03-2023 08:55-0500 Body mass index (BMI) [Ratio] 26.3 kg/m2 Dr. Amos Floyd Work Phone: 4(278)231-285051 [place] [address] 03-03-2023 08:55-0500 Body weight 65.[address] Amos Floyd Work Phone: 8(576)422-902151 [place] [address] 03-03-2023 08:55-0500 Diastolic blood pressure 76 mm[Hg] Dr. Amos Floyd Work Phone: 5(389)964-186551 [place] [address] 03-03-2023 08:55-0500 Heart rate 86 /min Dr. Amos Floyd Work Phone: 4(441)931-974751 [place] [address] 03-03-2023 08:55-0500 Respiratory rate 18 /min Dr. Amos Floyd Work Phone: 3(950)481-227151 [place] [address] 03-03-2023 08:55-0500 SaO2% (BldA) [Mass fraction] 99 % Dr. Amos Floyd Work Phone: 0(373)227-634451 [place] [address] 03-03-2023 08:55-0500 Systolic blood pressure 115 mm[Hg] Dr. Amos Floyd Work Phone: 7(539)580-926451 [place] [address] 01-19-2023 12:57-0500 Body height 159 cm Amos Floyd MD Work Phone: [facility] 01-19-2023 12:57-0500 Body weight 64.41 kg Amos Floyd MD Work Phone: [facility] 01-19-2023 12:57-0500 Diastolic blood pressure 66 mm[Hg] Amos Floyd MD Work Phone: [facility] 01-19-2023 12:57-0500 Heart rate 88 /min Amos Floyd MD Work Phone: [facility] 01-19-2023 12:57-0500 Respiratory rate 16 /min Amos Floyd MD Work Phone: [facility] 01-19-2023 12:57-0500 Systolic blood pressure 110 mm[Hg] Amos Floyd MD Work Phone: [facility] 11-25-2022 13:20-0400 Body height 157.[address] Amos Floyd Work Phone: [facility] 11-25-2022 13:20-0400 Body temperature 97.4 [degF] Dr. Amos Floyd Work Phone: 1(315)612-674351 [place] [address] 11-25-2022 13:20-0400 Diastolic blood pressure 91 mm[Hg] Dr. Amos Floyd Work Phone: 7(660)605-369616 [place] [address] 11-25-2022 13:20-0400 Heart rate 75 /min Dr. Amos Floyd Work Phone: 4(615)491-595816 [place] [address] 11-25-2022 13:20-0400 Respiratory rate 16 /min Dr. Amos Floyd Work Phone: [facility] 11-25-2022 13:20-0400 SaO2% (BldA) [Mass fraction] 99 % Dr. Amos Floyd Work Phone: [facility] 11-25-2022 13:20-0400 Systolic blood pressure 131 mm[Hg] Dr. Amos Floyd Work Phone: [facility] 11-24-2022 13:49-0400 Body mass index (BMI) [Ratio] 26.2 kg/m2 Dr. Amos Floyd Work Phone: [facility] 11-24-2022 13:49-0400 Body temperature 97.6 [degF] Dr. Amos Floyd Work Phone: [facility] 11-24-2022 13:49-0400 Body weight 64.[address] Amos Floyd Work Phone: [facility] 11-24-2022 13:49-0400 Diastolic blood pressure 74 mm[Hg] Dr. Amos Floyd Work Phone: [facility] 11-24-2022 13:49-0400 Heart rate 70 /min Dr. Amos Floyd Work Phone: [facility] 11-24-2022 13:49-0400 Respiratory rate 16 /min Dr. Amos Floyd Work Phone: [facility] 11-24-2022 13:49-0400 SaO2% (BldA) [Mass fraction] 97 % Dr. Amos Floyd Work Phone: [facility] 11-24-2022 13:49-0400 Systolic blood pressure 112 mm[Hg] Dr. Amos Floyd Work Phone: [facility] 11-08-2022 10:48-0400 Body temperature 97.5 [degF] Jacinda Enriquez ROAD ROLLER OPERATOR [employer] TEAM MANAGER Work Phone: [facility] 11-08-2022 10:48-0400 Body weight 63.[address] ROLLER OPERATOR [employer] TEAM MANAGER Work Phone: [facility] 11-08-2022 10:48-0400 Diastolic blood pressure 86 mm[Hg] Jacinda Enriquez ROAD ROLLER OPERATOR [employer] TEAM MANAGER Work Phone: [facility] 11-08-2022 10:48-0400 Heart rate 78 /min Jacinda En[address]quez [address] ROLLER OPERATOR [employer] TEAM MANAGER Work Phone: [facility] 11-08-2022 10:48-0400 Respiratory rate 20 /min Jacinda [address] ROLLER OPERATOR [employer] TEAM MANAGER Work Phone: [facility] 11-08-2022 10:48-0400 SaO2% (BldA) [Mass fraction] 98 % Jacinda Enriquez RO[address] ROLLER OPERATOR [employer] TEAM MANAGER Work Phone: [facility] 11-08-2022 10:48-0400 Systolic blood pressure 128 mm[Hg] Jacinda Santacruzgs ROAD ROLLER OPERATOR [employer] TEAM MANAGER Work Phone: [facility] 08-04-2022 13:18-0400 Body height 157.[address] Amos Floyd Work Phone: [facility] 08-04-2022 13:18-0400 Body mass index (BMI) [Ratio] 26.2 kg/m2 Dr. Amos Floyd Work Phone: [facility] 08-04-2022 13:18-0400 Body weight 64.[address] Amos Floyd Work Phone: [facility] 08-04-2022 13:18-0400 Diastolic blood pressure 82 mm[Hg] Dr. Amos Floyd Work Phone: [facility] 08-04-2022 13:18-0400 Heart rate 79 /min Dr. Amos Floyd Work Phone: [facility] 08-04-2022 13:18-0400 Respiratory rate 18 /min Dr. Amos Floyd Work Phone: [facility] 08-04-2022 13:18-0400 SaO2% (BldA) [Mass fraction] 98 % Dr. Amos Floyd Work Phone: [facility] 08-04-2022 13:18-0400 Systolic blood pressure 122 mm[Hg] Dr. Amos Floyd Work Phone: [facility] 07-20-2022 10:17-0400 Diastolic blood pressure 66 mm[Hg] Rocio Older RO[address] ROLLER OPERATOR [employer] TEAM MANAGER Work Phone: [facility] [facility] 07-20-2022 10:17-0400 Systolic blood pressure 102 mm[Hg] Rocio Old[address] ROLLER OPERATOR [employer] TEAM MANAGER Work Phone: [facility] 07-20-2022 10:01-0400 Body weight 63.[address] ROLLER OPERATOR [employer] TEAM MANAGER Work Phone: [facility] 07-20-2022 10:01-0400 Heart rate 96 /min Rocio Old[address] ROLLER OPERATOR [employer] TEAM MANAGER Work Phone: [facility] 07-20-2022 10:01-0400 Respiratory rate 16 /min Rocio Old[address] ROLLER OPERATOR [employer] TEAM MANAGER Work Phone: [facility] 05-27-2022 12:58-0400 Body height 157.[address] Amos Floyd Work Phone: [facility] 05-27-2022 12:58-0400 Body temperature 96.4 [degF] Dr. Amos Floyd Work Phone: [facility] 05-27-2022 12:58-0400 Diastolic blood pressure 93 mm[Hg] Dr. Amos Floyd Work Phone: 6(563)897-24[address] [place] [address] 05-27-2022 12:58-0400 Heart rate 78 /min Dr. Amos Floyd Work Phone: [facility] 05-27-2022 12:58-0400 Respiratory rate 16 /min Dr. Amos Floyd Work Phone: [facility] 05-27-2022 12:58-0400 SaO2% (BldA) [Mass fraction] 99 % Dr. Amos Floyd Work Phone: 1(045)475-348016 [place] [address] 05-27-2022 12:58-0400 Systolic blood pressure 152 mm[Hg] Dr. Amos Floyd Work Phone: [facility] 01-25-2022 11:33-0500 Body height 157.[address] Amos Floyd Work Phone: [facility] 01-25-2022 11:33-0500 Body mass index (BMI) [Ratio] 25.9 kg/m2 Dr. Amos Floyd Work Phone: 2(249)292-165316 [place] [address] 01-25-2022 11:33-0500 Body weight 64.[address] Amos Floyd Work Phone: [facility] 01-25-2022 11:33-0500 Diastolic blood pressure 91 mm[Hg] Dr. Amos Floyd Work Phone: [facility] 01-25-2022 11:33-0500 Heart rate 92 /min Dr. Amos Floyd Work Phone: [facility] 01-25-2022 11:33-0500 Respiratory rate 18 /min Dr. Amos Floyd Work Phone: [facility] 01-25-2022 11:33-0500 SaO2% (BldA) [Mass fraction] 99 % Dr. Amos Floyd Work Phone: [facility] 01-25-2022 11:33-0500 Systolic blood pressure 128 mm[Hg] Dr. Amos Floyd Work Phone: [facility] 12-20-2021 09:16-0400 Diastolic blood pressure 100 mm[Hg] Rocio Older [address] ROLLER OPERATOR [employer] TEAM MANAGER Work Phone: [facility] 12-20-2021 09:16-0400 Systolic blood pressure 154 mm[Hg] Rocio Older [address] ROLLER OPERATOR [employer] TEAM MANAGER Work Phone: [facility] 12-20-2021 08:50-0400 Body height [address] ROLLER OPERATOR [employer] TEAM MANAGER Work Phone: [facility] 12-20-2021 08:50-0400 Body weight 64.[address] ROLLER OPERATOR [employer] TEAM MANAGER Work Phone: [facility] 12-20-2021 08:50-0400 Heart rate 96 /min Rocio Old[address] ROLLER OPERATOR [employer] TEAM MANAGER Work Phone: [facility] 12-20-2021 08:50-0400 Respiratory rate 16 /min Rocio [address] ROLLER OPERATOR [employer] TEAM MANAGER Work Phone: [facility] 12-13-2021 09:14-0400 Body height 157.[address] Amos Floyd Work Phone: [facility] Work Phone: 12-13-2021 09:13-0400 Body mass index (BMI) [Ratio] 25.7 kg/m2 Dr. Amos Floyd Work Phone: [facility] 12-13-2021 09:13-0400 Body weight 63.[address] Amos Floyd Work Phone: [facility] 12-13-2021 09:13-0400 Diastolic blood pressure 95 mm[Hg] Dr. Amos Floyd Work Phone: [facility] 12-13-2021 09:13-0400 Heart rate 80 /min Dr. Amos Floyd Work Phone: [facility] 12-13-2021 09:13-0400 Respiratory rate 18 /min Dr. Amos Floyd Work Phone: [facility] 12-13-2021 09:13-0400 SaO2% (BldA) [Mass fraction] 99 % Dr. Amos Floyd Work Phone: [facility] 12-13-2021 09:13-0400 Systolic blood pressure 146 mm[Hg] Dr. Amos Floyd Work Phone: [facility] 12-06-2021 14:34-0400 Body temperature 97.5 [degF] Amos Floyd MD Work Phone: [facility] 12-06-2021 14:34-0400 Body weight 62.6 kg Amos Floyd MD Work Phone: [facility] 12-06-2021 14:34-0400 Diastolic blood pressure 86 mm[Hg] Amos Floyd MD Work Phone: [facility] 12-06-2021 14:34-0400 Heart rate 84 /min Amos Floyd MD Work Phone: [facility] 12-06-2021 14:34-0400 Respiratory rate 20 /min Amos Floyd MD Work Phone: [facility] 12-06-2021 14:34-0400 Systolic blood pressure 126 mm[Hg] Amos Floyd MD Work Phone: [facility] 12-02-2021 13:34-0400 Body mass index (BMI) [Ratio] 25.9 kg/m2 Dr. Amos Floyd Work Phone: [facility] 12-02-2021 13:34-0400 Body temperature 94.6 [degF] Dr. Amos Floyd Work Phone: [facility] 12-02-2021 13:34-0400 Body weight 64.[address] Amos Floyd Work Phone: 7(817)158-480716 [place] [address] 12-02-2021 13:34-0400 Diastolic blood pressure 104 mm[Hg] Dr. Amos Floyd Work Phone: 5(684)361-112716 [place] [address] 12-02-2021 13:34-0400 Heart rate 79 /min Dr. Amos Floyd Work Phone: [facility] 12-02-2021 13:34-0400 Respiratory rate 16 /min Dr. Amos Floyd Work Phone: [facility] 12-02-2021 13:34-0400 SaO2% (BldA) [Mass fraction] 95 % Dr. Amos Floyd Work Phone: [facility] 12-02-2021 13:34-0400 Systolic blood pressure 158 mm[Hg] Dr. Amos Floyd Work Phone: [facility] 11-26-2021 13:15-0400 Body height 157.[address] Amos Floyd Work Phone: [facility] Work Phone: 11-26-2021 13:15-0400 Body temperature 97.8 [degF] Dr. Amos Floyd Work Phone: [facility] 11-26-2021 13:15-0400 Diastolic blood pressure 88 mm[Hg] Dr. Amos Floyd Work Phone: [facility] 11-26-2021 13:15-0400 Heart rate 79 /min Dr. Amos Floyd Work Phone: 9(324)619-400651 [place] [address] 11-26-2021 13:15-0400 Respiratory rate 16 /min Dr. Amos Floyd Work Phone: 5(098)779-702851 [place] [address] 11-26-2021 13:15-0400 SaO2% (BldA) [Mass fraction] 98 % Dr. Amos Floyd Work Phone: 9(317)945-977351 [place] [address] 11-26-2021 13:15-0400 Systolic blood pressure 144 mm[Hg] Dr. Amos Floyd Work Phone: 0(026)960-111351 [place] [address] 11-18-2021 08:00-0400 Body temperature 98.2 [degF] Dr. Amos Floyd Work Phone: 2(224)310-688216 [place] [address] Work Phone: 11-18-2021 08:00-0400 Diastolic blood pressure 77 mm[Hg] Dr. Amos Floyd Work Phone: 4(165)157-143116 [place] [address] Work Phone: 11-18-2021 08:00-0400 Heart rate 72 /min Dr. Amos Floyd Work Phone: 7(889)339-910916 [place] [address] Work Phone: 11-18-2021 08:00-0400 Respiratory rate 18 /min Dr. Amos Floyd Work Phone: [facility] Work Phone: 11-18-2021 08:00-0400 SaO2% (BldA) [Mass fraction] 98 % Dr. Amos Floyd Work Phone: [facility] Work Phone: 11-18-2021 08:00-0400 Systolic blood pressure 112 mm[Hg] Dr. Amos Floyd Work Phone: [facility] Work Phone: 11-18-2021 05:55-0400 Body weight 63.[address] Amos Floyd Work Phone: [facility] Work Phone: 11-17-2021 10:20-0400 Body height 157.[address] Amos Floyd Work Phone: [facility] Work Phone: 11-17-2021 05:24-0400 Body weight 63.2 kg [facility] Work Phone: 11-17-2021 04:00-0400 Heart rate 83 /min [facility] Work Phone: 11-17-2021 01:25-0400 Body height 157.48 cm [facility] Work Phone: 11-17-2021 01:25-0400 Body mass index (BMI) [Ratio] 25.4 kg/m2 [facility] Work Phone: 11-17-2021 00:51-0400 Body temperature 98.1 [degF] [facility] Work Phone: 11-17-2021 00:51-0400 Diastolic blood pressure 63 mm[Hg] [facility] Work Phone: 11-17-2021 00:51-0400 Respiratory rate 25 /min [facility] Work Phone: 11-17-2021 00:51-0400 SaO2% (BldA) [Mass fraction] 96 % [facility] Work Phone: 11-17-2021 00:51-0400 Systolic blood pressure 84 mm[Hg] [facility] Work Phone: 10-20-2021 22:49-0400 Body mass index (BMI) [Ratio] 23 kg/m2 [facility] Work Phone: 10-13-2021 13:48-0400 Body temperature 98.71 [degF] Jarek [address] ROLLER OPERATOR [employer] TEAM MANAGER Work Phone: [facility] 10-13-2021 13:48-0400 Body weight 62.51 kg J[address] ROLLER OPERATOR [employer] TEAM MANAGER Work Phone: [facility] 10-13-2021 13:48-0400 Diastolic blood pressure 84 mm[Hg] Jarek [address] ROLLER OPERATOR [employer] TEAM MANAGER Work Phone: [facility] 10-13-2021 13:48-0400 Heart rate 111 /min Jarek [address] ROLLER OPERATOR [employer] TEAM MANAGER Work Phone: [facility] 10-13-2021 13:48-0400 Respiratory rate 18 /min Jarek [address] ROLLER OPERATOR [employer] Work Phone: [facility] 10-13-2021 13:48-0400 SaO2% (BldA) [Mass fraction] 97 % Jarek [address] ROLLER OPERATOR [employer] Work Phone: [facility] 10-13-2021 13:48-0400 Systolic blood pressure 124 mm[Hg] Jarek [address] ROLLER OPERATOR [employer] Work Phone: [facility] 09-19-2021 02:13-0400 Body mass index (BMI) [Ratio] 23 kg/m2 Dr. Amos Floyd Work Phone: [facility] Work Phone: 08-20-2021 06:53-0400 Body mass index (BMI) [Ratio] 23 kg/m2 Dr. Amos Floyd Work Phone: [facility] Work Phone: 07-20-2021 20:34-0400 Body mass index (BMI) [Ratio] 23 kg/m2 Dr. Amos Floyd Work Phone: [facility] Work Phone: 07-20-2021 09:20-0400 Body temperature 97.11 [degF] Amos Floyd MD Work Phone: [facility] 07-20-2021 09:20-0400 Body weight 62.6 kg Amos Floyd MD Work Phone: [facility] 07-20-2021 09:20-0400 Diastolic blood pressure 68 mm[Hg] Amos Floyd MD Work Phone: [facility] 07-20-2021 09:20-0400 Heart rate 72 /min Amos Floyd MD Work Phone: [facility] 07-20-2021 09:20-0400 Respiratory rate 16 /min Amos Floyd MD Work Phone: [facility] 07-20-2021 09:20-0400 Systolic blood pressure 114 mm[Hg] Amos Floyd MD Work Phone: [facility] 07-12-2021 11:22-0400 Body height 157.[address] Amos Floyd Work Phone: [facility] Work Phone: 07-12-2021 11:22-0400 Body mass index (BMI) [Ratio] 25.6 kg/m2 Dr. Amos Floyd Work Phone: [facility] Work Phone: 07-12-2021 11:22-0400 Body weight 63.[address] Amos Floyd Work Phone: [facility] Work Phone: 07-12-2021 11:22-0400 Diastolic blood pressure 88 mm[Hg] Dr. Amos Floyd Work Phone: [facility] Work Phone: 07-12-2021 11:22-0400 Heart rate 74 /min Dr. Amos Floyd Work Phone: [facility] Work Phone: 07-12-2021 11:22-0400 Respiratory rate 18 /min Dr. Amos Floyd Work Phone: [facility] Work Phone: 07-12-2021 11:22-0400 SaO2% (BldA) [Mass fraction] 98 % Dr. Amos Floyd Work Phone: [facility] Work Phone: 07-12-2021 11:22-0400 Systolic blood pressure 129 mm[Hg] Dr. Amos Floyd Work Phone: [facility] Work Phone: 07-12-2021 11:22-0400 Body height 157.[address] Amos Floyd Work Phone: [facility] Work Phone: 07-12-2021 11:22-0400 Body mass index (BMI) [Ratio] 25.6 kg/m2 Dr. Amos Floyd Work Phone: [facility] Work Phone: 07-12-2021 11:22-0400 Body weight 63.[address] Amos Floyd Work Phone: [facility] Work Phone: 07-12-2021 11:22-0400 Diastolic blood pressure 88 mm[Hg] Dr. Amos Floyd Work Phone: [facility] Work Phone: 07-12-2021 11:22-0400 Heart rate 74 /min Dr. Amos Floyd Work Phone: [facility] Work Phone: 07-12-2021 11:22-0400 Respiratory rate 18 /min Dr. Amos Floyd Work Phone: [facility] Work Phone: 07-12-2021 11:22-0400 SaO2% (BldA) [Mass fraction] 98 % Dr. Amos Floyd Work Phone: [facility] Work Phone: 07-12-2021 11:22-0400 Systolic blood pressure 129 mm[Hg] Dr. Amos Floyd Work Phone: [facility] Work Phone: 06-20-2021 03:20-0400 Body mass index (BMI) [Ratio] 23 kg/m2 Dr. Amos Floyd Work Phone: [facility] Work Phone: 05-27-2021 12:45-0400 Body height 157.[address] Amos Floyd Work Phone: [facility] Work Phone: 05-27-2021 12:45-0400 Body mass index (BMI) [Ratio] 25.6 kg/m2 Dr. Amos Floyd Work Phone: [facility] Work Phone: 05-27-2021 12:45-0400 Body temperature 97.1 [degF] Dr. Amos Floyd Work Phone: [facility] Work Phone: 05-27-2021 12:45-0400 Body weight 63.[address] Amos Floyd Work Phone: [facility] Work Phone: 05-27-2021 12:45-0400 Diastolic blood pressure 92 mm[Hg] Dr. Amos Floyd Work Phone: [facility] Work Phone: 05-27-2021 12:45-0400 Heart rate 89 /min Dr. Amos Floyd Work Phone: [facility] Work Phone: 05-27-2021 12:45-0400 Respiratory rate 12 /min Dr. Amos Floyd Work Phone: [facility] Work Phone: 05-27-2021 12:45-0400 SaO2% (BldA) [Mass fraction] 99 % Dr. Amos Floyd Work Phone: [facility] Work Phone: 05-27-2021 12:45-0400 Systolic blood pressure 134 mm[Hg] Dr. Amos Floyd Work Phone: [facility] Work Phone: 05-21-2021 01:38-0400 Body mass index (BMI) [Ratio] 23 kg/m2 Dr. Amos Floyd Work Phone: [facility] Work Phone: 04-20-2021 09:35-0500 Body mass index (BMI) [Ratio] 23 kg/m2 Dr. Amos Floyd Work Phone: [facility] Work Phone: 04-20-2021 08:35-0500 Body mass index (BMI) [Ratio] 23 kg/m2 Dr. Amos Floyd Work Phone: [facility] Work Phone: 2021 10:08-0500 Body height 157.[address] Amos Floyd Work Phone: [facility] Work Phone: 2021 10:08-0500 Body mass index (BMI) [Ratio] 26.5 kg/m2 Dr. Amos Floyd Work Phone: [facility] Work Phone: 2021 10:08-0500 Body weight 65.[address] Amos Floyd Work Phone: [facility] Work Phone: 2021 10:08-0500 Diastolic blood pressure 92 mm[Hg] Dr. Amos Floyd Work Phone: [facility] Work Phone: 2021 10:08-0500 Heart rate 80 /min Dr. Amos Floyd Work Phone: [facility] Work Phone: 2021 10:08-0500 Respiratory rate 18 /min Dr. Amos Floyd Work Phone: [facility] Work Phone: 2021 10:08-0500 SaO2% (BldA) [Mass fraction] 99 % Dr. Amos Floyd Work Phone: [facility] Work Phone: 2021 10:08-0500 Systolic blood pressure 134 mm[Hg] Dr. Amos Floyd Work Phone: [facility] Work Phone: 03-22-2021 21:52-0500 Body mass index (BMI) [Ratio] 23 kg/m2 Dr. Amos Floyd Work Phone: [facility] Work Phone: 02-21-2021 03:05-0500 Body mass index (BMI) [Ratio] 23 kg/m2 Dr. Amos Floyd Work Phone: [facility] Work Phone: 01-20-2021 01:16-0500 Body mass index (BMI) [Ratio] 23 kg/m2 Dr. Amos Floyd Work Phone: [facility] Work Phone: Encounters Encounter Date Encounter Type Care Provider Facility Start: 08-07-2024 Evaluation and manag ement of inpatient Dr. Sadia Silverio DO -Intensive Care Unit Work Phone: Start: 08-05-2024 End: 08-05-2024 Admission to same day surgery center Dr. Jordan Marte MD -General Science Teacher/Special Procedures Work Phone: Start: 08-05-2024 End: 08-05-[address] Amos Floyd MD Work Phone: [facility] Work Phone: Start: 07-24-2024 End: 07-24-2024 Office outpatient visit 25 minutes Amos Floyd MD Work Phone: [facility] [place] Comment on above: ASHD (arteriosclerot ic heart disease) (Primary Dx); Primary hypertension; Nonrheumatic aortic valve stenosis; Subconjunctival hemorrhage of left eye; Chronic nonallergic rhinitis; Stage 3b chronic kidney disease (HCC); Adrenal insufficiency (HCC); Encounter for immunization Start: 07-24-2024 End: 07-24-2024 ambulatory AMOS FLOYD Facility:[facility] Start: 07-23-2024 End: 07-23-2024 Patient encounter procedure Heaven VASQUEZ -[facility] Work Phone: Start: 07-23-2024 End: 07-23-[address] Amos Floyd MD Work Phone: [facility] Work Phone: Start: 07-21-2024 ambulatory Amos Floyd Facili ty:[facility] Start: 07-10-2024 End: 07-10-2024 ambulatory AMOS FLOYD Facility:[facility] Start: 07-05-2024 End: 07-05-2024 ambulatory AMOS FLOYD Facility:[facility] Start: 07-03-2024 ambulatory Jordan Marte Facility:[facility] Start: 07-03-2024 Non-patient / Non-visit Dr. Salena ZELAYA -[facility] Start: 07-03-2024 End: 07-03-2024 Patient encounter procedure Tucker DISLA -Cardiovascular Services Work Phone: Start: 07-03-2024 End: 07-03-[address] Amos Floyd MD Work Phone: [facility] Work Phone: Start: 06-21-2024 End: 06-21-2024 Discharged Recurring Shameka Velasquez PA -Laboratory Work Phone: Start: 06-21-2024 Registered Recurring Shameka Velasquez PA -Laboratory Work Phone: Start: 06-21-2024 End: 06-21-[address] Amos Floyd MD Work Phone: [facility] Work Phone: Start: 06-19-2024 End: 06-19-2024 Orders Only Brissa [address] ROLLER OPERATOR [employer] TEAM MANAGER Work Phone: [facility] Comment on above: Thyroid nodule (Prim christ Dx) Allied Health Visit (Medication Adherence Outreach ) Start: 05-24-2024 Non-patient / Non-visit Dr. Salena ZELAYA -[facility] Start: 05-24-2024 End: 05-24-2024 Patient encounter procedure Tucker Reyes PA -Cardiovascular Services Work Phone: Start: 05-24-2024 End: 06-19-2024 Discharged Recurring Shameka Velasquez PA -Laboratory Work Phone: Start: 05-24-2024 Registered Recurring Shameka Velasquez PA -Laboratory Work Phone: Start: 05-24-2024 End: 06-19-[address] Amos Floyd MD Work Phone: [facility] Work Phone: Start: 05-24-2024 End: 05-24-2024 ambulatory Tucker Demiter Facility:[facility] Start: 05-14-2024 End: 05-14-2024 ambulatory Amos Floyd MD Work Phone: [facility] Comment on above: Allied Health Visit (Medication Adherence Outreach/) Start: 04-29-2024 End: 04-29-2024 Patient encounter procedure Tucker Reyes PA -[facility] Work Phone: Start: 04-29-2024 End: 04-29-2024 ambulatory Tucker Demiter [place]: 04-26-2024 End: 04-26-2024 Discharged Recurring Shameka Velasquez PA -Laboratory Work Phone: Start: 04-26-2024 End: 04-26-[address] Amos Floyd MD Work Phone: [facility] Work Phone: Start: 04-05-2024 End: 04-05-2024 ambulatory Del Saravia MA [facility] Start: 04-05-2024 End: 04-05-2024 Patient encounter procedure Del Saravia MA [facility] Comment on above: Population Health Na vigation Outreach ([employer] High Risk - 1st attempt/) Start: 04-03-2024 End: 04-03-[address] Jennifer Tarango DO -Laboratory Work Phone: Start: 04-03-2024 End: 04-03-2024 ambulatory Jennifer Tarango Facility:[facility] Start: 03-21-2024 End: 03-22-2024 ambulatory Jordan Marte Facility:[facility] Start: 03-21-2024 End: 03-22-2024 Discharged Recurring Shameka Velasquez PA -Laboratory Work Phone: Start: 02-22-2024 End: 02-22-2024 Telephone encounter Amos Floyd MD Work Phone: [facility] [place] Comment on above: Results Start: 02-01-2024 End: 02-01-2024 Subsequent hospital visit by physician [facility] (I-Stat) Work Phone: Cat Scan Comment on above: Nodule of lower lobe of right lung [R91.1] Start: 02-01-2024 End: 02-01-2024 ambulatory AMOS FLOYD Facility:[facility] Start: 01-23-2024 End: 01-23-2024 ambulatory AMOS FLOYD Facility:[facility] Start: 01-23-2024 End: 01-23-2024 Patient encounter procedure Amos Floyd MD Work Phone: [facility] [place] Comment on above: Medicare annual well ness visit, subsequent (Primary Dx); Encounter for immunization; Need for influenza vaccination; Screening for depression; Encounter for screening examination for other mental health and behavioral disorders; Primary hypertension; Stage 3b chronic kidney disease (HCC); Hypertensive kidney disease with stage 3b chronic kidney disease (HCC); Age-related osteoporosis with current pathological fracture with routine healing; Nodule of lower lobe of right lung needing follor up CT; Closed displaced fracture of fifth metatarsal bone of right foot with delayed healing, subsequent encounter; Pure hypercholesterolemia; 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 Start: 01-19-2024 End: 01-19-2024 Telephone encounter Amos Floyd MD Work Phone: [facility] [place] Comment on above: Results Start: 01-15-2024 End: 01-15-2024 Orders Only Amos Floyd MD Work Phone: [facility] [place] Comment on above: Nodule of lower lobe of right lung needing follor up CT (Primary Dx) Start: 01-11-2024 End: 01-11-2024 Nursing evaluation of patient and report Mi Nurse Work Phone: [facility] Comment on above: Age-related osteopor osis with current pathological fracture with routine healing (Primary Dx) Start: 01-11-2024 End: 01-11-2024 ambulatory AMOS FLOYD Facility:[facility] Start: 01-04-2024 End: 01-20-2024 ambulatory Shameka DISLA Facility:[facility] Start: 01-01-2024 End: 01-01-2024 ambulatory AMOS FLOYD Facility:[facility] Start: 01-01-2024 End: 01-01-2024 Subsequent hospital visit by physician [facility] Work Phone: Radiology Comment on above: Abnormal finding of diagnostic imaging [R93.89] Start: 12-29-2023 End: 12-29-2023 E-mail encounter from caregiver Javier Abbott PA-C Work Phone: [facility] Start: 12-29-2023 End: 12-29-2023 Follow-up encounter Javier Abbott PA-C Work Phone: [facility] Comment on above: Actionable Findings Visit Follow-Up Actionable Findings Follow Up Start: 12-29-2023 End: 12-29-2023 Patient encounter procedure Javier Abbott PA-C Work Phone: [facility] [facility] Start: 12-29-2023 End: 12-29-2023 ambulatory AMOS FLOYD Facility:[facility] Start: 12-26-2023 End: 12-28-2023 Telephone encounter Amos Floyd MD Work Phone: Internal Medicine [place] Comment on above: Results Start: 12-21-2023 End: 12-21-2023 ambulatory Amos Floyd Facility:[facility] Start: 12-20-2023 End: 12-20-2023 Patient encounter procedure Nathaly Ren ROAD ROLLER OPERATOR HOT MIX.SPORTS TEAM MANAGER Work Phone: [facility] Comment on above: Radiology Review Start: 12-20-2023 End: 12-20-2023 Telephone encounter Nathaly Ren ROAD ROLLER OPERATOR HOT MIX.SPORTS TEAM MANAGER Work Phone: [facility] Start: 12-14-2023 ambulatory Amos Floyd Facili ty:[facility] Start: 12-14-2023 End: 12-14-2023 ambulatory Shameka DISLA Facility:[facility] Start: 12-14-2023 End: 12-20-2023 ambulatory NATHALY REN Facility:[facility] Start: 12-06-2023 End: 12-07-2023 Refill Amos Floyd MD Work Phone: Internal Medicine [place] Comment on above: Refill Request Start: 12-05-2023 End: 12-11-2023 Telephone encounter Amos Floyd MD Work Phone: Internal Medicine [place] Comment on above: Insurance Authorizat ion Start: 11-28-2023 End: 12-01-2023 Refill Amos Floyd MD Work Phone: Family Medicine [place] Start: 11-20-2023 End: 11-20-2023 ambulatory Yasir Swartz Facility:[facility] Start: 11-14-2023 End: 11-14-2023 ambulatory Echo Miller RN Work Phone: [employer] Start: 11-11-2023 End: 11-11-2023 ambulatory AMOS FLOYD Facility:[facility] Start: 11-08-2023 End: 11-08-2023 ambulatory Amos Floyd Facility:[facility] Start: 10-10-2023 End: 10-10-2023 ambulatory Amos Floyd Facility:[facility] Start: 09-19-2023 End: 09-19-2023 ambulatory Kole El PT Work Phone: [facility] Comment on above: Physical decondition ing (Primary Dx); Gait abnormality; Weakness Start: 09-12-2023 End: 09-12-2023 ambulatory Kole El PT Work Phone: [facility] Comment on above: Physical decondition ing (Primary Dx); Gait abnormality; Weakness Start: 09-08-2023 End: 09-08-2023 ambulatory Kole El PT Work Phone: [facility] Comment on above: Physical decondition ing (Primary Dx); Gait abnormality; Weakness Start: 09-07-2023 End: 09-20-2023 ambulatory Amos Floyd Facility:[facility] Start: 09-06-2023 End: 01-15-2024 ambulatory Amos Floyd MD Work Phone: Internal Medicine [place] Start: 09-06-2023 End: 01-15-2024 Follow-up encounter Amos Floyd MD Work Phone: Internal Medicine [place] Comment on above: Patient followup Start: 08-31-2023 End: 08-31-2023 ambulatory AMOS FLOYD Facility:[facility] Start: 08-30-2023 End: 08-31-2023 ambulatory Kole El PT Work Phone: [facility] Comment on above: Physical decondition ing (Primary Dx); Gait abnormality; Weakness Start: 08-21-2023 End: 08-21-2023 ambulatory Gisel Bolaños GARMENT STEAMER Work Phone: [facility] Comment on above: Physical decondition ing (Primary Dx); Gait abnormality; Weakness Start: 08-17-2023 E-mail encounter fro m caregiver Nathaly Ren LIDIA.SPORTS TEAM MANAGER Work Phone: [facility] Start: 08-17-2023 Patient encounter procedure Nathlay Ren LIDIA.SPORTS TEAM MANAGER Work Phone: [facility] Comment on above: Actionable Finding Start: 08-11-2023 End: 08-11-2023 ambulatory AMOS FLOYD Facility:[facility] Start: 08-11-2023 End: 08-11-2023 Patient encounter procedure Amos Floyd MD Work Phone: Internal Medicine [place] Comment on above: Primary hypertension (Primary Dx); Hypercalcemia; Adrenal hypofunction (HCC); Nonrheumatic aortic valve stenosis Start: 08-09-2023 End: 08-09-2023 ambulatory Kole Sienna PT Work Phone: [facility] Comment on above: Physical decondition ing (Primary Dx); Gait abnormality; Weakness Start: 08-08-2023 Telephone encounter Amos maria MD Work Phone: Internal Medicine [place] Comment on above: Hypertension Start: 08-02-2023 End: 08-02-2023 ambulatory Kole Sienna PT Work Phone: [facility] Comment on above: Physical decondition ing (Primary Dx); Gait abnormality; Weakness Start: 07-19-2023 End: 01-15-2024 ambulatory Kole Sienna PT Work Phone: [facility] Comment on above: Physical decondition ing (Primary Dx); Gait abnormality; Weakness medication midodrine Start: 07-05-2023 End: 07-05-2023 ambulatory Kole Sienna PT Work Phone: [facility] Comment on above: Physical decondition ing (Primary Dx); Gait abnormality; Weakness Start: 06-30-2023 End: 06-30-2023 Patient encounter procedure Amos Floyd MD Work Phone: Internal Medicine [place] Comment on above: Hypercalcemia (Prima ry Dx); Age-related osteoporosis with current pathological fracture with routine healing; Hypokalemia; Adrenal hypofunction (HCC); NSTEMI (non-ST elevated myocardial infarction) (HCC); ASHD (arteriosclerotic heart disease); Nonrheumatic aortic valve stenosis Start: 06-28-2023 End: 06-28-2023 ambulatory Kole El PT Work Phone: [facility] Comment on above: Physical decondition ing (Primary Dx); Gait abnormality; Weakness Start: 06-21-2023 End: 06-21-2023 ambulatory Kole El PT Work Phone: [facility] Comment on above: Physical decondition ing (Primary Dx); Gait abnormality; Weakness Start: 06-19-2023 Telephone encounter Felisa yost APRN.SPORTS TEAM MANAGER Work Phone: [facility] Cardiology [place] Comment on above: Appointment Start: 06-19-2023 End: 06-20-[address] Amos Floyd Work Phone: [facility] Work Phone: Start: 06-19-2023 End: 06-20-[address] Amos Floyd Work Phone: [facility]-Laboratory Work Phone: Start: 06-14-2023 End: 06-14-2023 ambulatory Kole El PT Work Phone: [facility] Comment on above: Physical decondition ing (Primary Dx); Gait abnormality; Muscle weakness Start: 06-09-[address] ROLLER OPERATOR HOT MIX.SPORTS TEAM MANAGER Work Phone: [facility] Start: 06-09-2023 Evaluation and manag ement of inpatient Rocio Elizalde APRN.SPORTS TEAM MANAGER Work Phone: Internal Medicine [place] Comment on above: is inpatient a t [facility] Start: 06-09-2023 End: 06-13-2023 Evaluation and management of inpatient AMOS FLOYD Facility:[facility] Start: 06-08-2023 End: 06-09-2023 Emergency department patient visit MILADYS KEANE Facility:[facility] Start: 06-08-2023 ambulatory Amos salazar MD Work Phone: Internal [facility] Comment on above: Chest Pain Start: 06-07-2023 Telephone encounter Rocio gomez APRN.SPORTS TEAM MANAGER Work Phone: Internal [facility] Comment on above: Blood Pressure Start: 05-31-2023 End: 05-31-[address] Amos Floyd Work Phone: [facility] Work Phone: Comment on above: Physical decondition ing (Primary Dx); Muscle weakness; Gait abnormality Start: 05-31-2023 Telephone encounter Amos maria MD Work Phone: [facility] Comment on above: Clinical Update Start: 05-31-2023 End: 05-31-[address] Amos Floyd Work Phone: [facility]-Medical Out Work Phone: Start: 05-31-[address] Jenni Floyd Work Phone: [facility]-Laboratory Work Phone: Start: 05-31-2023 End: 05-31-2023 Patient encounter procedure Rocio Elizalde APRN.SPORTS TEAM MANAGER Work Phone: [facility] Comment on above: Other specified hypo tension (Primary Dx); [place]'s disease (HCC); Hypercalcemia Start: 05-31-2023 End: 05-31-2023 ambulatory Kole El PT Work Phone: [facility] Comment on above: Gait abnormality (Pr imary Dx); Physical deconditioning; Weakness Start: 05-24-2023 End: 05-26-2023 ambulatory Rocio Elizalde APRN.SPORTS TEAM MANAGER Work Phone: [facility] Start: 05-24-2023 Evaluation and manag ement of inpatient Rocio Montes [address] ROLLER OPERATOR HOT MIX.SPORTS TEAM MANAGER Work Phone: Internal Medicine [place] Comment on above: is inpatient a dana WORRELL Start: 05-24-2023 End: 05-26-2023 Evaluation and management of inpatient [facility] Start: 05-23-2023 End: 05-24-2023 Emergency department patient [facility] Dr[facility]os [facility] Start: 05-23-2023 Telephone encounter Hung Freed MD Work Phone: Family Medicine [place] Comment on above: Results Start: 05-23-2023 End: 05-23-2023 Patient encounter procedure Rocio Montes [address] ROLLER OPERATOR HOT MIX.SPORTS TEAM MANAGER Work Phone: Internal Medicine [place] Comment on above: Hypercalcemia (Prima ry Dx); Fatigue, unspecified type; Urinary frequency; Myalgias; Confusion; Weakness Start: 05-22-2023 Telephone encounter Amos maria MD Work Phone: Internal Medicine [place] Comment on above: Patient Question Start: 05-19-2023 ambulatory Amos salazar MD Work Phone: [facility] Start: 05-19-2023 Follow-up encounter Amos maria MD Work Phone: Internal Medicine [place] Comment on above: Zometa medication/ E R visit followup care. Start: 05-15-2023 End: 05-15-2023 Emergency department patient visit Dr. Amos Floyd [facility] Start: 05-15-2023 Telephone encounter Amos maria MD Work Phone: Internal Medicine [place] Comment on above: Patient Update Start: 05-09-2023 End: 05-09-2023 ambulatory oJsé Shi PT, DPT [facility] Comment on above: Gait abnormality (Pr imary Dx); Hip pain, unspecified laterality; Closed displaced fracture of fifth metatarsal bone of right foot with delayed healing, subsequent encounter Start: 05-02-2023 End: 05-02-2023 ambulatory José Shi PT, DPT [facility] Comment on above: Gait abnormality (Pr imary Dx); Hip pain, unspecified laterality; Closed displaced fracture of fifth metatarsal bone of right foot with delayed healing, subsequent encounter Start: 2023 End: 04-20-[address] Amos Floyd Work Phone: [facility] Work Phone: Start: 2023 End: 04-20-[address] Amos Floyd Work Phone: [facility]-Laboratory Work Phone: Start: [address] Jenni Floyd Work Phone: [facility] Work Phone: Start: 04-11-2023 End: 04-11-2023 ambulatory Kole El PT Work Phone: [facility] Comment on above: Gait abnormality (Pr imary Dx); Hip pain, unspecified laterality; Closed displaced fracture of fifth metatarsal bone of right foot with delayed healing, subsequent encounter Start: 04-10-2023 Non-patient / Non-visit Dr. Atiya Floyd Work Phone: [facility] Start: 04-10-2023 End: 04-10-[address] Amos Floyd Work Phone: [facility] Work Phone: Start: 04-10-2023 End: 04-10-[address] Amos Floyd Work Phone: [facility]-Cardiovascula r Services Work Phone: Start: 04-04-2023 End: 04-04-[address] Amos Floyd Work Phone: [facility] Work Phone: Start: 04-04-2023 End: 04-04-[address] Amos Floyd Work Phone: [facility]-Laboratory, Phy Office 3rd Flr Start: 04-03-2023 End: 04-03-2023 ambulatory Kole El PT Work Phone: [facility] Comment on above: Gait abnormality (Pr imary Dx); Hip pain, unspecified laterality; Closed displaced fracture of fifth metatarsal bone of right foot with delayed healing, subsequent encounter Start: 03-28-[address] Jenni Floyd Work Phone: [facility]Laboratory Work Phone: Start: 03-28-2023 End: 03-28-2023 ambulatory Kole El PT Work Phone: [facility] Comment on above: Gait abnormality (Pr imary Dx); Hip pain, unspecified laterality; Closed displaced fracture of fifth metatarsal bone of right foot with delayed healing, subsequent encounter Start: 03-23-2023 ambulatory Omar bernardo Work Phone: Podiatry Comment on above: xrays Start: 03-23-2023 E-mail encounter fro m caregiver Omar Cruz [facility] Phone[facility] Start: 03-03-2023 End: 03-03-[address] Amos Floyd Work Phone: [facility] Work Phone: Start: 02-24-2023 End: 02-24-[address] Amos Floyd Work Phone: [facility] Work Phone: Start: 02-24-2023 End: 02-24-[address] [facility] Start: 02-08-2023 End: 02-19-[address] Amos Floyd Work Phone: [facility] Work Phone: Start: 02-08-2023 End: 02-19-[address] [facility]os [facility] Start: 01-19-2023 End: 01-19-2023 Patient encounter procedure Amos Floyd MD Work Phone: Internal Medicine [place] Comment on above: [facility], subsequent (Primary Dx); Primary hypertension; Pure hypercholesterolemia; Atopic neurodermatitis; Adrenal hypofunction (HCC); Disorder of autonomic nervous system; Stage 3b chronic kidney disease (HCC); Age-related osteoporosis with current pathological fracture with routine healing; Need for COVID-19 vaccine; Hypercalcemia Start: 01-18-2023 End: 01-18-2023 Subsequent hospital visit by physician Xr [facility] Work Phone: Radiology Comment on above: Closed displaced fra cture of fifth metatarsal bone of right foot, initial encounter [S92.351A] Start: 12-23-2022 End: 01-19-[address] Amos Floyd Work Phone: [facility] Work Phone: Start: 12-23-2022 End: 01-19-[address] [facility]os [facility] Start: 12-19-2022 End: 12-19-2022 Patient encounter procedure Omar Cruz Work Phone: Podiatry Comment on above: Closed displaced fra cture of fifth metatarsal bone of right foot, initial encounter (Primary Dx) Start: 12-19-2022 End: 12-19-2022 Subsequent hospital visit by physician Xr [facility] Work Phone: Radiology Comment on above: Closed displaced fra cture of fifth metatarsal bone of right foot, initial encounter [M74.877A] Start: 12-08-2022 End: 12-08-[address] Amos Floyd Work Phone: [facility] Work Phone: Start: 12-08-2022 End: 12-08-[address] Amos Floyd Work Phone: [facility]-Laboratory Work Phone: Start: 12-02-2022 Refill Amos salazar MD Work Phone: [facility] Comment on above: Refill Request Start: 12-01-2022 End: 12-01-2022 Subsequent hospital visit by physician Xr [facility] Work Phone: Radiology Comment on above: Closed displaced fra cture of fifth metatarsal bone of right foot, initial encounter [U31.064C] Start: 11-25-2022 End: 11-25-[address] Amos Floyd Work Phone: [facility]-Medical Out Work Phone: Start: 11-24-2022 End: 11-24-[address] Amos Floyd Work Phone: [facility] Endocrinology Work Phone: Start: 11-08-2022 End: 11-08-2022 Subsequent hospital visit by physician Xr [facility] Work Phone: Radiology Comment on above: Foot pain, right [M7 9.671] Start: 11-08-2022 End: 11-08-2022 Patient encounter procedure Jacinda Enriquez APRN.SPORTS TEAM MANAGER Work Phone: [facility] Comment on above: Foot pain, right (Pr imary Dx); Closed fracture of right foot, initial encounter Start: 11-01-2022 End: 11-01-2022 ambulatory Kole El PT Work Phone: [facility] Comment on above: Hip pain, unspecifie d laterality [M25.559] (Primary Dx) Start: 10-26-2022 End: 10-26-[address] Amos Floyd Work Phone: [facility] Work Phone: Start: 10-26-2022 End: 10-26-[address] Amos [facility] Start: 10-26-2022 End: 10-26-2022 Subsequent hospital visit by physician [facility] Work Phone: Radiology Comment on above: Hip pain, unspecifie d laterality [M25.559] Start: 10-26-2022 End: 10-26-2022 Patient encounter procedure Amos Floyd MD Work Phone: Internal Medicine [place] Comment on above: Hip pain, unspecifie d laterality (Primary Dx); Stage 3b chronic kidney disease (HCC); Deep vein thrombosis (DVT) of lower extremity, unspecified chronicity, unspecified laterality, unspecified vein (HCC); Need for influenza vaccination Start: 10-11-2022 End: 10-11-[address] Amos Floyd Work Phone: [facility] Work Phone: Start: 10-11-2022 End: 10-11-[address] [facility]os [facility] Start: 09-19-2022 Refill Nevin Brooks Work Phone: Dermatology Comment on above: Refill Request Start: 09-12-2022 End: 09-19-[address] Amos Floyd Work Phone: [facility] Work Phone: Start: 09-12-2022 End: 09-19-[address] Amos [facility] Start: 08-11-2022 End: 08-11-[address] Amos Floyd Work Phone: [facility] Work Phone: Start: 08-11-2022 End: 08-11-[address] Amos [facility] Start: 08-04-2022 End: 08-04-[address] Amos Floyd Work Phone: [facility] Work Phone: Start: 07-27-2022 Telephone encounter Ryan rick MD Work Phone: Dermatology Comment on above: Uphol[employer]er - O ther Start: 07-26-2022 End: 07-26-[address] Amos [facility] Start: 07-22-2022 Telephone encounter Ryan rick MD Work Phone: Dermatology Comment on above: Patient Question Start: 07-20-2022 End: 07-20-2022 Patient encounter procedure Rocio Johnson APRN.SPORTS TEAM MANAGER Work Phone: Internal Medicine [place] Comment on above: Primary hypertension (Primary Dx); Pure hypercholesterolemia; Stage 3b chronic kidney disease (HCC); ASHD (arteriosclerotic heart disease); Osteopenia, unspecified location Start: 07-08-2022 End: 07-20-[address] Amos Floyd Work Phone: [facility] Work Phone: Start: 07-08-2022 End: 07-20-[address] Amos Floyd Work Phone: [facility]Laboratory Start: 06-07-2022 End: 06-07-[address] Amos Floyd Work Phone: [facility] Work Phone: Start: 06-07-2022 End: 06-07-[address] [facility]os [facility] Start: 05-31-2022 End: 05-31-[address] Amos Floyd Work Phone: [facility] Work Phone: Start: 05-31-2022 End: 05-31-[address] [facility]os [facility] Start: 05-27-2022 End: 05-27-[address] Amos Floyd Work Phone: [facility]-Medical Out Start: 05-25-2022 End: 05-25-2022 Patient encounter procedure Ryan Gale MD Work Phone: Dermatology Comment on above: Atopic neurodermatit is (Primary Dx) Start: 05-09-2022 End: 05-20-[address] Amos Floyd Work Phone: [facility] Work Phone: Start: 05-09-2022 End: 05-20-[address] Amos [facility] Start: 03-25-2022 Non-patient / Non-visit Dr. Atiya Floyd Work Phone: [facility] Start: 03-25-2022 End: 03-25-[address] Amos Floyd Work Phone: [facility] Work Phone: Start: 03-25-2022 End: 03-25-[address] Amos [facility] Start: 03-15-2022 Telephone encounter Ryan rick MD Work Phone: Dermatology Comment on above: Insurance Authorizat ion ([employer]) Start: 03-14-2022 Refill Ryan Payton Work Phone: Dermatology Comment on above: Refill Request Start: 03-10-2022 End: 03-10-[address] Amos Floyd Work Phone: [facility] Work Phone: Start: 03-10-2022 End: 03-10-[address] [facility]os [facility] Start: 02-23-2022 End: 02-23-2022 Patient encounter procedure Ryan Gale MD Work Phone: Dermatology Comment on above: Atopic neurodermatit is (Primary Dx) Start: 02-15-2022 End: 02-15-[address] Amos Floyd Work Phone: [facility] Work Phone: Start: 02-15-2022 End: 02-15-[address] [facility]os [facility] Start: 01-27-[address] Jenni [facility] Start: 01-25-2022 End: 01-25-[address] Amos Floyd Work Phone: [facility] Work Phone: Start: 01-25-2022 End: 01-25-[address] Amos Floyd Work Phone: [facility] Start: 12-28-2021 End: 01-19-[address] Amos Floyd Work Phone: [facility] Work Phone: Start: 12-28-2021 End: 01-19-[address] Amos Floyd Work Phone: [facility]Labor[facility] Start: 12-20-2021 End: 12-20-2021 Patient encounter procedure Rocio Johnson APRN.CNP Work Phone: Internal Medicine [place] Comment on above: Medicare annual well ness visit, subsequent (Primary Dx); Hypertension, unspecified type; Pure hypercholesterolemia; Encounter for immunization Start: 12-13-2021 End: 12-13-[address] Amos Floyd Work Phone: [facility] Start: 12-08-2021 Documentation procedure Mammog akash Coordinator [facility] Start: 12-08-2021 Letter encounter Mammography Coordinator [facility] Start: 12-08-2021 End: 12-08-2021 Subsequent hospital visit by physician Screen Mammo [facility] Comment on above: Encounter for screen ing mammogram for malignant neoplasm of breast [Z12.31] Start: 12-06-2021 End: 12-06-2021 Patient encounter procedure Amos Floyd MD Work Phone: Internal Medicine [place] Comment on above: Hypotension due to h ypovolemia (Primary Dx); Elevated troponin; Acute kidney injury (HCC); Stage 3b chronic kidney disease (HCC); Hypercalcemia; Anticoagulated on Coumadin; Breast pain, left; Encounter for screening mammogram for malignant neoplasm of breast Start: 12-02-2021 Refill Amos salazar MD Work Phone: [address] [place] [address] Comment on above: Refill Request Start: 12-02-2021 End: 12-02-[address] Amos Floyd Work Phone: [facility] Endocrinology Start: 11-26-2021 End: 11-26-[address] Amos Floyd Work Phone: [facility] Start: 11-25-2021 End: 11-25-2021 Patient encounter procedure Ryan Gale MD Work Phone: Dermatology Comment on above: Atopic neurodermatit is (Primary Dx) Start: 11-24-2021 End: 11-24-[address] [facility] [facility] Work Phone: Start: 11-24-2021 End: 11-24-[address] Amos Floyd Work Phone: [facility]-Laboratory, Phy Office 3rd Flr Start: 11-18-2021 Non-patient / Non-visit Dr. Atiya Floyd Work Phone: [facility] Start: 11-17-2021 Non-patient / Non-visit Dr. Atiya Floyd Work Phone: [facility]-Pulmonary Medicine [facility] Start: 11-17-2021 Non-patient / Non-visit Dr. Atiya Floyd Work Phone: [facility] Start: 11-17-2021 Non-patient / Non-visit Dr. Atiya Floyd Work Phone: [facility] Start: 11-17-2021 End: 11-18-2021 [facility] Start: 11-02-2021 End: 11-02-[address] Amos Floyd Work Phone: [facility] Work Phone: Start: 11-02-2021 End: 11-02-[address] Amos Floyd Work Phone: [facility]-Laboratory Start: 11-02-2021 Registered Recurring [facility] Start: 10-28-2021 ambulatory Luciana montes RN Work Phone: [employer] Comment on above: 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 (enrollment/HAH) Start: 10-14-2021 Telephone encounter Jefferson guzman APRN.SPORTS TEAM MANAGER Work Phone: [facility] Comment on above: Results Start: 10-13-2021 End: 10-13-2021 Patient encounter procedure Jarek Mendenhall APRShireenSPORTS TEAM MANAGER Work Phone: [facility] Comment on above: Suspected COVID-19 v irus infection (Primary Dx) Start: 09-28-2021 End: 09-28-[address] Amos Floyd Work Phone: [facility] Work Phone: Start: 09-28-2021 End: 09-28-[address] Amos Floyd Work Phone: [facility]-Laboratory Start: 08-30-2021 End: 09-19-[address] Amos Floyd Work Phone: [facility]Laboratory Start: 08-25-2021 End: 08-25-2021 Patient encounter procedure Nevin Lee PA-C Work Phone: Dermatology Comment on above: Atopic neurodermatit is (Primary Dx) Start: 07-26-2021 End: 07-26-[address] Amos Floyd Work Phone: [facility]-Laboratory Start: 07-20-2021 End: 07-20-2021 Patient encounter procedure Amos Floyd MD Work Phone: [facility] [place] Comment on above: Adrenal hypofunction (HCC) (Primary Dx); Primary hypertension; ASHD (arteriosclerotic heart disease); Hip pain; Need for COVID-19 vaccine Start: 07-12-2021 End: 07-12-[address] Amos Floyd Work Phone: [facility] Start: 06-25-2021 End: 06-25-[address] Amos Floyd Work Phone: [facility]Laboratory Start: 05-27-2021 End: 05-27-[address] Amos Floyd Work Phone: [facility]-Medical Out Start: 05-27-2021 End: 05-27-[address] [facility] Start: 05-27-[address] Jenni Floyd [facility] Start: 04-29-2021 End: 05-20-[address] [facility]os [facility] Start: 04-28-2021 Non-patient / Non-visit Dr. Atiya Floyd Work Phone: [facility] Start: 04-28-2021 End: 04-28-[address] Amos Floyd Work Phone: [facility]-Cardiovascula r Services Start: 2021 End: [address] Amos Floyd Work Phone: [facility] Start: 03-31-2021 End: 03-31-[address] [facility] Start: 03-02-2021 End: 03-22-[address] [facility]os [facility] Start: 02-01-2021 End: 02-20-[address] Amos Floyd [facility] Start: 04-28-2020 Evaluation and manag ement of inpatient ARUN CALERO Facility:[facility] Start: 01-17-2018 Ambulatory [facility] Facility :[facility] Start: 01-17-2017 End: 01-17-2017 Ambulatory [facility] Facility:[facility] Start: 04-09-2009 End: 05-14-2009 Patient encounter status Kole El PT Work Phone: [facility] Procedures Date Procedure Procedure Detail Performing Clinician Start: 08-07-2024 Urnls dip stick/tabl et reagent auto microscopy Dr. Amos Floyd MD Work Phone: Start: 08-07-[address] Amos Floyd MD Work Phone: Start: 08-07-2024 Total iron binding c apacity measurement Dr. Amos Floyd MD Work Phone: Start: 08-05-[address] Amos Floyd MD Work Phone: Start: 07-24-2024 PFIZER-BIONTECH COVI D-19 VACCINE AGE 12+ YR ([facility]) Amos Floyd MD Work Phone: Start: 07-23-2024 X-ray of chest, PA a nd lateral views Dr. Amos Floyd MD Work Phone: Start: 04-03-2024 Assay of phosphorus inorganic Dr. Amos Floyd MD Work Phone: Start: 04-03-2024 Measurement of renal function Dr. Amos Floyd MD Work Phone: Comment on above: GFR Calc Start: 01-23-2024 PFIZER-BIONTECH COVI D-19 VACCINE AGE 12+ YR ([facility]) Amos Floyd MD Work Phone: Start: 01-23-2024 Adult depression scr eening assessment Amos Floyd MD Work Phone: Start: 01-01-2024 Radiologic exam ches t 2 views Javier Abbott PA-C Work Phone: Start: 05-26-2023 DISCHARGE PATIENT ELISA MCDONOUGH Start: 05-26-2023 PROTIME-INR HAMZA MANC Y Start: 05-26-2023 Basic metabolic 2000 panel - Serum or Plasma ELISA MCDONOUGH Start: 05-26-2023 CBC panel - Blood by Automated count ELISA CARVAJALCY Start: 05-26-2023 EXTRA TUBES HAMZA MANC Y Start: 05-26-2023 LAVENDER TOP HAMZA MANC Y Start: 05-26-2023 PST TOP HAMZA MANC Y Start: 05-26-2023 SST TOP HAMZA MANC Y Start: 05-26-2023 End: 05-26-2023 Basic metabolic panel calcium total Raisa James [address] ROLLER OPERATOR [employer]-SPORTS TEAM MANAGER Work Phone: Start: 05-26-2023 EXTRA TUBES Jazmine Britt MD Work Phone: Start: 05-26-2023 LAVENDER TOP Jazmine Britt MD Work Phone: Start: 05-26-2023 PST TOP Jazmine Britt MD Work Phone: Start: 05-26-2023 SST TOP Jazmine Britt MD Work Phone: Start: 05-25-2023 CALCIUM, IONIZED LEONARDOZA MANCY Start: 05-25-2023 Calcium ionized Dallasi mamie [address] ROLLER OPERATOR [employer] M[employer]-SPORTS TEAM MANAGER Work Phone: Start: 05-25-2023 PROTIME-INR HAMZA MANC Y Start: 05-25-2023 EXTRA TUBES HAMZA MANC Y Start: 05-25-2023 Hemoglobin A1c/Hemoglobin.total in Blood HAMZA MANCY Start: 05-25-2023 LAVENDER TOP HAMZA MANC Y Start: 05-25-2023 PST TOP HAMZA MANC Y Start: 05-25-2023 SST TOP HAMZA MANC Y Start: 05-25-2023 EXTRA TUBES Jazmine Britt MD Work Phone: Start: 05-25-2023 End: 05-25-2023 Hemoglobin glycosylated a1c Raisa may ROAD ROLLER OPERATOR [employer] M[employer]-SPORTS TEAM MANAGER Work Phone: Start: 05-25-2023 LAVENDER TOP Jazmine Britt MD Work Phone: Start: 05-25-2023 PST TOP Jazmine Britt MD Work Phone: Start: 05-25-2023 SST TOP Jazmine Britt MD Work Phone: Start: 05-25-2023 PTH, INTACT HAMZA MANC Y Start: 05-25-2023 Basic metabolic 2000 panel - Serum or Plasma HAMZA MANCY Start: 05-25-2023 Phosphate [Mass/volu me] in Serum or Plasma HAMZA MANCY Start: 05-25-2023 PTH-RELATED PEPTIDE HAM ZA MANCY Start: 05-25-2023 VITAMIN D 25-HYDROXY,TOTAL HAMZA MANCY Start: 05-25-2023 End: 05-25-2023 Basic metabolic panel calcium total Alexander Gregory MD Work Phone: Start: 05-24-2023 TELEMETRY MONITORING SCHNEIDER MZA MANCY Start: 05-24-2023 PROTIME-INR HAMZA MANC Y Start: 05-24-2023 IP CONSULT TO ENDOCRINOLOGY HAMZA MANCY Start: 05-24-2023 Prothrombin time Sofya Britt MD Work Phone: Start: 05-24-2023 CBC W Auto Different ial panel - Blood HAMZA MANCY Start: 05-24-2023 Comprehensive metabo lic 2000 panel - Serum or Plasma HAMZA MANCY Start: 05-24-2023 EXTRA TUBES HAMZA MANC Y Start: 05-24-2023 Magnesium [Mass/volu me] in Serum or Plasma HAMZA MANCY Start: 05-24-2023 PTH-RELATED PEPTIDE HAM ZA MANCY Start: 05-24-2023 SST TOP HAMZA MANC Y Start: 05-24-2023 CBC W Auto Different ial panel - Blood HAMZA MANCY Start: 05-24-2023 CALCIUM, IONIZED HAMZA MANCY Start: 05-24-2023 COAGULATION SCREEN HAMZ A MANCY Start: 05-24-2023 Comprehensive metabo lic 2000 panel - Serum or Plasma HAMZA MANCY Start: 05-24-2023 Magnesium [Mass/volu me] in Serum or Plasma HAMZA MANCY Start: 05-24-2023 PTH, INTACT HAMZA MANC Y Start: 05-24-2023 VITAMIN D 1,25 DIHYDROXY HAMZA MANCY Start: 05-24-2023 Comprehensive metabo lic panel Shakira Antunez ROAD ROLLER OPERATOR HOT MIX-SPORTS TEAM MANAGER Work Phone: Start: 05-24-2023 EXTRA TUBES Elisa Hightower Batsheva cooper MD Work Phone: Start: 05-24-2023 SST TOP Elisa Hightower Batsheva cooper MD Work Phone: Start: 05-24-2023 REASON FOR NO DVT PROPHYLAXIS - HOSPITAL ADMISSION - MEDICATIONS ELISA MCDONOUGH Start: 05-24-2023 DNR AND NO INTUBATIO N AND NO ICU ELISA MCDONOUGH Start: 05-24-2023 INITIATE OBSERVATION STATUS ELISA MCDONOUGH Start: 05-24-2023 MEASURE HEIGHT ELISA STORM KEYLADiane Start: 05-24-2023 WEIGH PATIENT ELISA RENTERIA Start: 05-24-2023 End: 05-24-2023 Comprehensive metabolic panel Shakira Antunez ROAD ROLLER OPERATOR H[employer] MIX-SPORTS TEAM MANAGER Work Phone: Start: 05-23-2023 Plain chest X-ray Dr. Mt Floyd Work Phone: Start: 05-23-2023 Urnls dip stick/tabl et rgnt auto w/o microscopy Rocio Elizalde ROAD ROLLER OPERATOR HOT MIX.SPORTS TEAM MANAGER Work Phone: Start: 05-15-2023 CT of chest, abdomen and pelvis without contrast Dr. Amos Floyd Work Phone: Start: 05-15-2023 Plain chest X-ray Dr. Mt Floyd Work Phone: Start: 01-19-2023 [employer]EUDOW[employer]at[employer] COVI D-19 VACCINE (2022- SEASON) AGE 12+ YR Amos Floyd MD Work Phone: Start: 12-19-2022 Radex foot complete minimum 3 views Omar Cruz Work Phone: Start: 12-01-2022 Radex foot complete minimum 3 views Omar Cruz Work Phone: Start: 11-08-2022 Radex foot complete minimum [address] ROLLER OPERATOR HOT MIX.SPORTS TEAM MANAGER Work Phone: Start: 10-26-2022 Radex hips bilateral with pelvis minimum 5 views Amos Floyd MD Work Phone: Start: 10-26-2022 INFLUENZA VACCINE, P RSV FREE, AGE 65+ YR, HIGH DOSE, QUADRIVALENT (FLUZONE HIGH-DOSE) Amos Floyd MD Work Phone: Start: 12-20-2021 PFIZER-BIONTECH COVI D-19 BIVALENT BOOSTER VACCINE, AGE 12+ YR Rocio Old[address] ROLLER OPERATOR HOT MIX.SPORTS TEAM MANAGER Work Phone: Start: 12-08-2021 Screening mammograph y bi 2-view breast inc cad Amos Floyd MD Work Phone: Start: 11-16-2021 Plain chest X-ray Start: 07-20-2021 PFIZER-BIONTECH COVI D-19 VACCINE, AGE 12+ YR ([facility]) Amos Floyd MD Work Phone: Start: 04-28-2021 Radionuclide imaging of perfusion of myocardium under exercise stress Dr. Amos Floyd Work Phone: Start: 07-28-2020 Adult depression scr eening assessment Amos Floyd MD Work Phone: Start: 05-02-2020 Echocardiography Bacteria identified in Blood by Culture Dr. Amos Floyd Work Phone: Urine culture Dr. Amos Odonnell Work Phone: Urine culture Dr. Amos Odonnell Work Phone: Plan of Treatment Date Care Activity Detail Author Start: 11-10-2029 DTaP/Tdap/Td Vaccines (2 - Td or Tdap) DTaP/Tdap/Td Vaccines (2 - Td or Tdap) [facility] Start: 11-10-2029 Urine microalbumin profile [facility] Start: 07-06-2027 Diabetes Screening Diabetes Screening [facility] Start: 01-31-2027 Diabetes Screening Diabetes Screening [facility] Start: 11-10-2026 Diabetes Screening Diabetes Screening [facility] Start: 08-30-2026 Diabetes Screening Diabetes Screening [facility] Start: 06-30-2026 Diabetes Screening Diabetes Screening [facility] Start: 06-12-2026 Diabetes Screening Diabetes Screening [facility] Start: 06-10-2026 Diabetes Screening Diabetes Screening [facility] Start: 06-07-2026 Diabetes Screening Diabetes Screening [facility] Start: 05-25-2026 Diabetes Screening Diabetes Screening [facility] Start: 05-22-2026 Diabetes Screening Diabetes Screening [facility] Start: 05-11-2026 Diabetes Screening Diabetes Screening [facility] Start: 01-18-2026 Diabetes Screening Diabetes Screening [facility] Start: 12-20-2025 Screening for osteoporosis Bone Density Screening [facility] Start: 01-31-2025 Creatinine measurement Serum Creatinine [facility] Start: 01-31-2025 Hepatitis B surface antibody level LDL Cholesterol [facility] Start: 01-22-2025 Annual PCP Team Chronic Disease Visit Annual PCP Team Chronic Disease Visit [facility] Start: 01-22-2025 Anxiety Screening Anxiety Screening [facility] Start: 01-22-2025 Depression Screening Depression Screening [facility] Start: 01-22-2025 End: 01-22-2025 Patient encounter procedure 01/22/2025 8:40 AM EST Office Visit [facility] [place] [address] [place] [address] Amos Floyd MD [address] [place] [address] Annual Medicare Wellness w/6 month follow-up [facility] [place] Comment on above: Annual Medicare Wellness w/6 month follo w-up Start: 01-13-2025 End: 01-13-2025 Nursing evaluation of patient and report 01/13/2025 9:00 AM EST Nurse Visit [facility] [place] [address] [place] [address] Nurse, [place] [address] [place] [address] [facility] [place] Comment on above: [facility] Start: 11-10-2024 Creatinine measurement Serum Creatinine [facility] Start: 08-30-2024 Creatinine measurement Serum Creatinine [facility] Start: 08-10-2024 Annual PCP Team Chronic Disease Visit Annual PCP Team Chronic Disease Visit [facility] Start: 08-07-2024 CT Abdomen and Pelvis WO contrast [facility] Start: 08-07-2024 CT of abdomen and pelvis without contrast Abdomen/Pelvis without Cont [facility] Start: 08-07-2024 Measurement of occult blood in stool specimen using immunoassay [facility] Start: 08-07-2024 Admission procedure [facility] Start: 08-07-2024 Hospital admission, emergency, from emergency room, medical nature [facility] Start: 08-07-2024 [facility] Start: 08-07-2024 End: 08-07-2024 [facility] Start: 08-07-2024 Bacteria identified in Blood by Culture Blood Culture [facility] Start: 08-07-2024 Bacteria identified in Urine by Culture Urine Culture [facility] Start: 08-05-2024 Patient discharge [facility] Start: 07-24-2024 End: 07-24-2024 Patient encounter procedure 07/24/2024 11:00 AM EDT Office Visit [facility] [place] [address] [place] [address] Amos Floyd MD [address] [place] [address] 6 month follow up [facility] [place] Comment on above: 6 month follow up Start: 07-23-2024 Covid-19 Vaccine () Covid-19 Vaccine () [facility] Start: 07-23-2024 Evaluation of diagnostic study results [facility] Start: 07-10-2024 End: 07-10-2024 Nursing evaluation of patient and report 07/10/2024 9:15 AM EDT Nurse Visit [facility] [place] [address] [place] [address] Nurse, [place] [address] [place] [address] [facility] Comment on above: [facility] Start: 06-30-2024 Creatinine measurement Serum Creatinine [facility] Start: 06-29-2024 Annual PCP Team Chronic Disease Visit Annual PCP Team Chronic Disease Visit [facility] Start: 06-12-2024 Complete blood count Hemoglobin/Hematocrit [facility] Start: 06-12-2024 Creatinine measurement Serum Creatinine [facility] Start: 06-11-2024 Complete blood count Hemoglobin/Hematocrit [facility] Start: 06-11-2024 Creatinine measurement Serum Creatinine [facility] Start: 06-07-2024 Complete blood count Hemoglobin/Hematocrit [facility] Start: 06-07-2024 Creatinine measurement Serum Creatinine [facility] Start: 05-30-2024 Annual PCP Team Chronic Disease Visit Annual PCP Team Chronic Disease Visit [facility] Start: 05-25-2024 Complete blood count Hemoglobin/Hematocrit [facility] Start: 05-25-2024 Creatinine measurement Serum Creatinine [facility] Start: 05-22-2024 Annual PCP Team Chronic Disease Visit Annual PCP Team Chronic Disease Visit [facility] Start: 05-22-2024 Creatinine measurement Serum Creatinine [facility] Start: 05-11-2024 Creatinine measurement Serum Creatinine [facility] Start: 05-11-2024 DIABETES SCREEN DIABETES SCREEN [facility] Start: 05-11-2024 Diabetes Screening Diabetes Screening [facility] Start: 03-22-2024 Annual PCP Team Chronic Disease Visit Annual PCP Team Chronic Disease Visit [facility] Start: 03-22-2024 BP Controlled (<130/80) BP Controlled (<130/80) [facility] Start: 02-21-2024 Advance Directive Discussion Advance Directive Discussion [facility] Start: 02-01-2024 End: 02-01-2024 Patient encounter procedure 02/01/2024 10:40 AM EST Appointment Cat Scan [address] [place] [address] Nodule of lower lobe of right lung [R91.1] [facility] Comment on above: Nodule of lower lobe of right lung [R91. 1] Start: 01-24-2024 End: 04-24-2024 Basic metabolic 2000 panel - Serum or Plasma BASIC METABOLIC PANEL Lab Routine Stage 3b chronic kidney disease (HCC) Expected: 01/24/2024, Expires: 04/24/2024 [facility] Work Phone: Comment on above: Expected: 01/24/2024, Expires: Start: 01-24-2024 End: 04-24-2024 Lipid 1996 panel - Serum or Plasma LIPID PANEL BASIC Lab Routine Pure hypercholesterolemia Expected: 01/24/2024, Expires: 04/24/2024 [facility] Comment on above: Expected: 01/24/2024, Expires: Start: 01-23-2024 End: 01-23-2024 Patient encounter procedure 01/23/2024 9:40 AM EST Office Visit [facility] [place] [address] [facility] [place] [address] Amos Floyd MD [address] [place] [address] Medicare Wellness [facility] [place] Comment on above: Medicare Wellness Start: 01-20-2024 Annual PCP Team Chronic Disease Visit Annual PCP Team Chronic Disease Visit [facility] Start: 01-20-2024 BP Controlled (<130/80) BP Controlled (<130/80) [facility] Start: 01-19-2024 Complete blood count Hemoglobin/Hematocrit [facility] Start: 01-19-2024 Creatinine measurement Serum Creatinine [facility] Start: 01-19-2024 Hemoglobin/Hematocrit Hemoglobin/Hematocrit [facility] Start: 01-19-2024 Hepatitis B surface antibody level LDL Cholesterol [facility] Start: 01-19-2024 Serum Creatinine Serum Creatinine [facility] Start: 01-11-2024 End: 01-11-2024 Nursing evaluation of patient and report 01/11/2024 2:00 PM EST Nurse Visit [facility] [place] [address] [facility] [place] [address] Nurse, [place] [address] [facility] [place] [address] prolia injection already approved. [facility] [place] Comment on above: prolia injection already approved. Start: 12-29-2023 End: 12-29-2023 Patient encounter procedure 12/29/2023 9:30 AM EST Radiology [facility] [address] [place] [address] Actionable Findings Phone Call [facility] Comment on above: Actionable Findings Phone Call Start: 10-27-2023 ANNUAL PCP TEAM CHRONIC DISEASE VISIT ANNUAL PCP TEAM CHRONIC DISEASE VISIT [facility] Start: 10-27-2023 BP CONTROLLED (<130/80) BP CONTROLLED (<130/80) [facility] Start: 10-22-2023 Covid-19 Vaccine () Covid-19 Vaccine ( season) [facility] Start: 10-22-2023 Covid-19 Vaccine ( season) Covid-19 Vaccine () [facility] Start: 10-22-2023 Influenza [facility] Start: 09-19-2023 End: 09-19-2023 ambulatory 09/19/2023 11:30 AM EDT OT/PT/Speech Visit [facility] [address] [place] [address] Kole El, PT [address] [place] [address] Physical deconditioning [R53.81]; Muscle weakness [M62.81]; Gait abnormality [R26.9] [facility] Comment on above: Physical deconditioning [R53.81]; Muscle weakness [M62.81]; Gait abnormality [R26.9] Start: 09-12-2023 End: 09-12-2023 ambulatory 09/12/2023 11:30 AM EDT OT/PT/Speech Visit [facility] [address] [place] [place] [address] Kole El, PT [address] [place] [address] Physical deconditioning [R53.81]; Muscle weakness [M62.81]; Gait abnormality [R26.9] [facility] Comment on above: Physical deconditioning [R53.81]; Muscle weakness [M62.81]; Gait abnormality [R26.9] Start: 09-08-2023 End: 09-08-2023 ambulatory 09/08/2023 2:30 PM EDT OT/PT/Speech Visit [facility] [address] [place] [place] [address] Kole El, PT [address] [place] [address] Physical deconditioning [R53.81]; Muscle weakness [M62.81]; Gait abnormality [R26.9] [facility] Comment on above: Physical deconditioning [R53.81]; Muscle weakness [M62.81]; Gait abnormality [R26.9] Start: 09-05-2023 End: 09-05-2023 ambulatory 09/05/2023 3:00 PM EDT OT/PT/Speech Visit [facility] [address] [place] [address] Kole El, PT [address] [place] [address] Physical deconditioning [R53.81]; Muscle weakness [M62.81]; Gait abnormality [R26.9] [facility] Comment on above: Physical deconditioning [R53.81]; Muscle weakness [M62.81]; Gait abnormality [R26.9] Start: 08-30-2023 End: 08-30-2023 ambulatory 08/30/2023 3:00 PM EDT OT/PT/Speech Visit [facility] [address] [place] [address] Kole El, PT [address] [facility] [place] [address] Physical deconditioning [R53.81]; Muscle weakness [M62.81]; Gait abnormality [R26.9] [facility] Comment on above: Physical deconditioning [R53.81]; Muscle weakness [M62.81]; Gait abnormality [R26.9] Start: 08-21-2023 End: 08-21-2023 ambulatory 08/21/2023 11:45 AM EDT OT/PT/Speech Visit [facility] [address] [place] [address] Gisel Bolaños, GARMENT STEAMER [address] [place] [address] Physical deconditioning [R53.81]; Muscle weakness [M62.81]; Gait abnormality [R26.9] [facility] Comment on above: Physical deconditioning [R53.81]; Muscle weakness [M62.81]; Gait abnormality [R26.9] Start: 08-15-2023 End: 08-15-2023 Patient encounter procedure 08/15/2023 3:30 PM EDT Office Visit [facility] [address] [place] [id number] Chastity Luke APRN.SPORTS TEAM MANAGER [address] [place] [address] Hospital Follow up, elsi. [facility] Comment on above: Hospital Follow up, elsi. Start: 08-11-2023 End: 08-11-2023 Patient encounter procedure 08/11/2023 10:40 AM EDT Office Visit [facility] [place] [address] [place] [address] Amos Floyd MD [address] [place], [place] [id number] 6 week follow-up [facility] [place] Comment on above: 6 week follow-up Start: 08-09-2023 End: 08-09-2023 ambulatory 08/09/2023 9:15 AM EDT OT/PT/Speech Visit [facility] [address] [place] [address] Kole El, PT [address] [place], [place] [id number] R26.9 (ICD-10-CM) - Gait abnormality [facility] Comment on above: R26.9 (ICD-10-CM) - Gait abnormality Start: 08-02-2023 End: 08-02-2023 ambulatory [facility] Comment on above: R26.9 (ICD-10-CM) - Gait abnormality Start: 07-26-2023 End: 07-26-2023 ambulatory [facility] Comment on above: R26.9 (ICD-10-CM) - Gait abnormality Start: 07-21-2023 ANNUAL PCP TEAM CHRONIC DISEASE VISIT ANNUAL PCP TEAM CHRONIC DISEASE VISIT [facility] Start: 07-21-2023 BP CONTROLLED (<130/80) BP CONTROLLED (<130/80) [facility] in Start: 07-20-2023 End: 07-20-2023 Patient encounter procedure 07/20/2023 1:40 PM EDT Office Visit [facility] [place] [address] [place], [place] [id number] Amos Floyd MD [address] [place] [address] 6 month follow-up [facility] [place] Comment on above: 6 month follow-up Start: 07-19-2023 End: 07-19-2023 ambulatory 07/19/2023 9:00 AM EDT OT/PT/Speech Visit [facility] [address] [place] [address] Kole El, PT [address] [place], [place] [id number] R26.9 (ICD-10-CM) - Gait abnormality [facility] Comment on above: R26.9 (ICD-10-CM) - Gait abnormality Start: 07-11-2023 End: 07-11-2023 ambulatory 07/11/2023 9:00 AM EDT OT/PT/Speech Visit [facility] [address], [place] [id number] Kole El, PT [address] [place], [place] [address] R26.9 (ICD-10-CM) - Gait abnormality [facility] Comment on above: R26.9 (ICD-10-CM) - Gait abnormality Start: 07-05-2023 End: 07-05-2023 ambulatory 07/05/2023 9:45 AM EDT OT/PT/Speech Visit [facility] [address] [facility] [address] Kole El, PT [address] [facility] [place] [address] R26.9 (ICD-10-CM) - Gait abnormality [facility] Comment on above: R26.9 (ICD-10-CM) - Gait abnormality Start: 07-01-2023 End: 09-30-2023 25-hydroxyvitamin D3 [Mass/volume] in Serum or Plasma VITAMIN D 25 HYDROXY Lab Routine Hypercalcemia Age-related osteoporosis with current pathological fracture with routine healing Expected: 07/01/2023, Expires: 09/30/2023 [facility] Comment on above: Expected: 07/01/2023, Expires: Start: 07-01-2023 End: 09-30-2023 Calcium.ionized [Moles/volume] in Blood CALCIUM, IONIZED Lab Routine Hypercalcemia Age-related osteoporosis with current pathological fracture with routine healing Expected: 07/01/2023, Expires: 09/30/2023 [facility] Comment on above: Expected: 07/01/2023, Expires: Start: 07-01-2023 End: 09-30-2023 Comprehensive metabolic 2000 panel - Serum or Plasma COMPREHENSIVE METABOLIC PANEL Lab Routine Hypercalcemia Age-related osteoporosis with current pathological fracture with routine healing Expected: 07/01/2023, Expires: 09/30/2023 [facility] Work Phone: Comment on above: Expected: 07/01/2023, Expires: Start: 07-01-2023 End: 09-30-2023 Cortisol [Mass/volume] in Serum or Plasma CORTISOL, SERUM Lab Routine Hypokalemia Adrenal hypofunction (HCC) Expected: 07/01/2023, Expires: 09/30/2023 [facility] Comment on above: Expected: 07/01/2023, Expires: Start: 07-01-2023 End: 09-30-2023 [facility] [place] 1 [facility] [place] 1 Lab Routine Age-related osteoporosis with current pathological fracture with routine healing Expected: 07/01/2023, Expires: 09/30/2023 [facility] Comment on above: Expected: 07/01/2023, Expires: 4 Start: 07-01-2023 End: 09-30-2023 Parathyrin.intact [Mass/volume] in Serum or Plasma PTH INTACT Lab Routine Hypercalcemia Age-related osteoporosis with current pathological fracture with routine healing Expected: 07/01/2023, Expires: 09/30/2023 [facility] Comment on above: Expected: 07/01/2023, Expires: Start: 07-01-2023 End: 09-30-2023 Phosphate [Mass/volume] in Serum or Plasma PHOSPHORUS INORGANIC Lab Routine Hypercalcemia Age-related osteoporosis with current pathological fracture with routine healing Expected: 07/01/2023, Expires: 09/30/2023 [facility] Comment on above: Expected: 07/01/2023, Expires: Start: 06-30-2023 End: 06-30-2023 Patient encounter procedure 06/30/2023 9:40 AM EDT Office Visit Internal Medicine [place] [address] [place] [address] Amos Floyd MD [address] [place] [address] 1 month follow up [address] Amor [facility] [place] Comment on above: [address] Amor Start: 06-28-2023 End: 06-28-2023 ambulatory 06/28/2023 11:15 AM EDT OT/PT/Speech Visit [facility] [address] [place], [place] [id number] Kole El, PT [address] [place] [address] R26.9 (ICD-10-CM) - Gait abnormality [facility] Comment on above: R26.9 (ICD-10-CM) - Gait abnormality Start: 06-21-2023 End: 06-21-2023 ambulatory 06/21/2023 1:00 PM EDT OT/PT/Speech Visit [facility] [address] [place] [address] Kole El, PT [address] [place] [address] R26.9 (ICD-10-CM) - Gait abnormality [facility] Comment on above: R26.9 (ICD-10-CM) - Gait abnormality Start: 05-23-2023 [facility] Start: 05-23-2023 End: 08-22-2023 Bacteria identified in Urine by Culture [facility] Work Phone: Comment on above: Expected: 05/23/2023, Expires: Start: 05-20-2023 Covid-19 Vaccine () Covid-19 Vaccine () [facility] Start: 05-15-2023 [facility] Start: 02-20-2023 Advance Directive Discussion Advance Directive Discussion [facility] Start: 02-20-2023 Behavioral Health Screening Behavioral Health Screening [facility] Start: 02-20-2023 Depression Assessment Depression Assessment [facility] Start: 01-06-2023 Hepatitis B surface antibody level LDL CHOLESTEROL [facility] Start: 12-21-2022 End: 02-20-2023 CBC panel - Blood by Automated count CBC Lab Routine Primary hypertension Stage 3b chronic kidney disease (HCC) Expected: 12/21/2022 (Approximate), Expires: 02/20/2023 [facility] Work Phone: Comment on above: Expected: 12/21/2022 (Approximate), Expi res: 02/20/2023 Start: 12-21-2022 End: 02-20-2023 Comprehensive metabolic 2000 panel - Serum or Plasma COMP METABOLIC PANEL Lab Routine Pure hypercholesterolemia Primary hypertension Expected: 12/21/2022 (Approximate), Expires: 02/20/2023 [facility] Work Phone: Comment on above: Expected: 12/21/2022 (Approximate), Expi res: 02/20/2023 Start: 12-21-2022 End: 02-20-2023 Lipid 1996 panel - Serum or Plasma LIPID PANEL BASIC Lab Routine Pure hypercholesterolemia Expected: 12/21/2022 (Approximate), Expires: 02/20/2023 [facility] Work Phone: Comment on above: Expected: 12/21/2022 (Approximate), Expi res: 02/20/2023 Start: 12-20-2022 ANNUAL PCP TEAM CHRONIC DISEASE VISIT ANNUAL PCP TEAM CHRONIC DISEASE VISIT [facility] Start: 12-06-2022 ANNUAL PCP TEAM CHRONIC DISEASE VISIT ANNUAL PCP TEAM CHRONIC DISEASE VISIT [facility] Start: 10-21-2022 Covid-19 Vaccine () Covid-19 Vaccine () [facility] Start: 10-21-2022 Influenza vaccination INFLUENZA (#1) [facility] Start: 07-20-2022 ANNUAL PCP TEAM CHRONIC DISEASE VISIT ANNUAL PCP TEAM CHRONIC DISEASE VISIT [facility] Start: 07-20-2022 BP CONTROLLED (<130/80) BP CONTROLLED (<130/80) [facility] in Start: 05-11-2022 SERUM CREATININE SERUM CREATININE [facility] Start: 04-19-2022 COVID-19 VACCINE (6 - Pfizer series) COVID-19 VACCINE (6 - Pfizer series) [facility] Start: 02-20-2022 ADVANCE DIRECTIVE DISCUSSION ADVANCE DIRECTIVE DISCUSSION [facility] Start: 02-20-2022 DEPRESSION ASSESSMENT DEPRESSION ASSESSMENT [facility] Start: 12-20-2021 End: 02-19-2022 Lipid 1996 panel - Serum or Plasma LIPID PANEL BASIC Lab Routine Pure hypercholesterolemia Expected: 12/20/2021, Expires: 02/19/2022 [facility] Work Phone: Comment on above: Expected: 12/20/2021, Expires: Start: 11-20-2021 Prothrombin time [facility] Work Phone: Start: 11-19-2021 Prothrombin time [facility] Work Phone: Start: 11-18-2021 Partial thromboplastin time, activated [facility] Work Phone: Start: 11-18-2021 Patient discharge [facility] Work Phone: Start: 11-18-2021 Care planning and problem solving actions [facility] Work Phone: Start: 11-18-2021 Prothrombin time [facility] Work Phone: Start: 11-17-2021 End: 11-17-2021 Following clinical pathway protocol [facility] Work Phone: Start: 11-17-2021 Referral to service [facility] Work Phone: Start: 11-17-2021 Assessment of risk of venous thromboembolism [facility] Work Phone: Start: 11-17-2021 Consultation [facility] Work Phone: Start: 11-17-2021 Continuous pulse oximetry [facility] Work Phone: Start: 11-17-2021 Insertion of catheter into peripheral vein [facility] Work Phone: Start: 11-17-2021 Measuring intake and output [facility] Work Phone: Start: 11-17-2021 Providing care according to standard [facility] Work Phone: Start: 11-17-2021 Vital signs measurements [facility] Work Phone: Start: 11-17-2021 End: 11-17-2021 [facility] Work Phone: Start: 11-17-2021 Verification routine [facility] Work Phone: Start: 11-17-2021 Admission procedure [facility] Work Phone: Start: 11-17-2021 Blood chemistry [facility] Work Phone: Start: 11-17-2021 Patient referral to dietitian [facility] Work Phone: Start: 11-16-2021 [facility] Work Phone: Start: 11-16-2021 End: 11-16-2021 Blood culture [facility] Work Phone: Start: 10-21-2021 Influenza vaccination INFLUENZA (#1) [facility] Start: 10-13-2021 End: 10-27-2021 Influenza virus A and B RNA and SARS-CoV-2 (COVID-19) N gene panel - Respiratory specimen by NAN with probe detection COVID WITH FLUA+B, ROUTINE Microbiology Routine Suspected COVID-19 virus infection Expected: 10/13/2021, Expires: 10/27/2021 [facility] Work Phone: Comment on above: Expected: 10/13/2021, Expires: Start: 10-08-2021 Screening for osteoporosis Bone Density Screening [facility] Start: 09-14-2021 COVID-19 VACCINE (5 - Booster for Pfizer series) COVID-19 VACCINE (5 - Booster for Pfizer series) [facility] Start: 07-28-2021 Adult depression screening assessment DEPRESSION SCREENING [facility] Start: 06-09-2021 Hepatitis B surface antibody level LDL CHOLESTEROL [facility] Start: 05-11-2021 HEMOGLOBIN/HEMATOCRIT HEMOGLOBIN/HEMATOCRIT [facility] Start: 02-20-2021 ADVANCE DIRECTIVE DISCUSSION [facility] Start: 02-20-2021 DEPRESSION ASSESSMENT DEPRESSION ASSESSMENT [facility] Start: 08-30-2019 BP CONTROLLED (<130/80) BP CONTROLLED (<130/80) [facility] Start: 2003 RSV Vaccine (1 - 1-dose 60+ series) RSV Vaccine (1 - 1-dose 60+ series) [facility] Start: 1961 Anxiety Screening Anxiety Screening [facility] Start: 1961 Depression Screening Depression Screening [facility] Start: 1943 Lipid panel Lipid Panel [facility] Start: 1943 Medicare Annual Wellness Visit Medicare Annual Wellness Visit (AWV) [facility] Start: 1943 Screening for osteoporosis Bone Density Scan [facility] Anion gap measurement [facility] Work Phone: Bacteria identified in Blood by Culture Blood Culture [facility] Work Phone: Basic metabolic 2008 panel with ionized calcium - Serum or Plasma [facility] Bilirubin measuremen t, urine [facility] Work Phone: Bilirubin measuremen t, urine [facility] Blood culture [facility] Work Phone: BUN/Creatinine ratio [facility] Work Phone: Calcium [Mass/volume ] in Serum or Plasma [facility] Work Phone: Carbon dioxide, tota l [Moles/volume] in Serum or Plasma [facility] Work Phone: Catheterization of l eft heart [facility] CBC W Auto Different ial panel - Blood [facility] Chloride [Moles/volu me] in Serum or Plasma [facility] Work Phone: Creatinine [Moles/volume] in Serum or Plasma [facility] Work Phone: End: 02-13-2025 CT Chest WO contrast CT CHEST WO IVCON Radiology Routine Nodule of lower lobe of right lung needing follor up CT 1 Occurrences starting 01/15/2024 until 02/13/2025 [facility] Work Phone: Comment on above: 1 Occurrences starting 01/15/2024 until 02/13/2025 CT Chest WO contrast CT CHEST WO IVCON Radiology Routine Nodule of lower lobe of right lung needing follor up CT 02/01/2024 11:20 AM EST [facility] Work Phone: End: 12-29-2024 DXA Skeletal system.axial Views for bone density DXA-AXIAL SKELETON Radiology Routine Age-related osteoporosis with current pathological fracture with routine healing 1 Occurrences starting 11/30/2023 until 12/29/2024 [facility] Work Phone: Comment on above: 1 Occurrences starting 11/30/2023 until 12/29/2024 Electrocardiogram, 12-lead PRN ACS symptoms Electrocardiogram, 12-lead PRN ACS symptoms ECG Routine As needed until discontinued starting 05/24/2023 [facility] Work Phone: Comment on above: As needed until discontinued starting Glucose [Mass/volume ] in Serum or Plasma [facility] Work Phone: Hematocrit [Volume Fraction] of Blood [facility] Work Phone: Hemoglobin [Mass/volume] in Blood [facility] Work Phone: Hemoglobin [Presence ] in Urine [facility] Work Phone: Hemoglobin [Presence ] in Urine [facility] INR in Blood by Coagulation assay [facility] Work Phone: Lactic acid measurement [facility] Leukocytes [#/volume ] in Blood [facility] Work Phone: Mean corpuscular hemoglobin concentration determination [facility] Work Phone: Mean corpuscular hemoglobin determination [facility] Work Phone: Measurement of keton es in urine using dipstick [facility] Work Phone: Measurement of keton es in urine using dipstick [facility] Measurement of renal function [facility] Work Phone: Microscopic urinalysis [facility] Work Phone: Microscopic urinalysis [facility] Neutrophil count [facility] Work Phone: Neutrophil percent differential count [facility] Work Phone: Organism count, microscopic method [facility] End: 05-24-2023 Parathyrin related protein [Moles/volume] in Serum or Plasma [facility] Work Phone: Comment on above: Once (Lab) for 1 Occurrences starting until 05/24/2023 End: 05-25-2023 Parathyrin related protein [Moles/volume] in Serum or Plasma PTH-Related Peptide Lab Routine Once (Lab) for 1 Occurrences starting 05/25/2023 until 05/25/2023 [facility] Work Phone: Comment on above: Once (Lab) for 1 Occurrences starting until 05/25/2023 Partial thromboplast in time, activated [facility] Work Phone: Partial thromboplast in time, activated [facility] Patient Education Hypercalcemia Dc [facility] Work Phone: Patient referral [facility] Work Phone: pH of Urine [facility] Work Phone: pH of Urine [facility] Platelets [#/volume] in Blood [facility] Work Phone: Potassium [Moles/volume] in Serum or Plasma [facility] Work Phone: Prothrombin time [facility] Work Phone: Prothrombin time [facility] Red blood cell count [facility] Work Phone: Red cell distributio n width determination [facility] Work Phone: End: 01-05-2023 Screening mammography bi 2-view breast inc [facility] Radiology Routine Encounter for screening mammogram for malignant neoplasm of breast 1 Occurrences starting 12/06/2021 until 01/05/2023 [facility] Work Phone: Comment on above: 1 Occurrences starting 12/06/2021 until 01/05/2023 Sodium [Moles/volume ] in Serum or Plasma [facility] Work Phone: Specific gravity of Urine [facility] Work Phone: Specific gravity of Urine [facility] Troponin T.cardiac [Mass/volume] in Serum or Plasma by High sensitivity method [facility] Urea nitrogen [Mass/volume] in Serum or Plasma [facility] Work Phone: End: 05-24-2023 Urinalysis complete panel - Urine Urinalysis with Reflex Microscopic Lab Routine Once (Lab) for 1 Occurrences starting 05/24/2023 until 05/24/2023 [facility] Work Phone: Comment on above: Once (Lab) for 1 Occurrences starting until 05/24/2023 Urinalysis, blood, qualitative [facility] Work Phone: Urine culture [facility] Urine dipstick for glucose [facility] Work Phone: Urine dipstick for glucose [facility] Urine dipstick for leukocyte esterase [facility] Work Phone: Urine dipstick for leukocyte esterase [facility] Urine dipstick for nitrite [facility] Work Phone: Urine dipstick for nitrite [facility] Urine dipstick for protein [facility] Work Phone: Urine dipstick for protein [facility] Urine examination [facility] Work Phone: Urine examination [facility] Urine microscopy: epithelial cells [facility] Work Phone: Urine microscopy: epithelial cells [facility] Urine microscopy: re d cells [facility] Urine Microscopy: wh ite cells [facility] Work Phone: Urobilinogen [Presen ce] in Urine [facility] Work Phone: Urobilinogen [Presen ce] in Urine [facility] Vitamin D, 25-hydrox y measurement [facility] Work Phone: White blood cell count [facility] End: 01-27-2025 XR Chest PA and Lateral XR CHEST 2V FRONTAL/LAT Radiology STAT Abnormal finding of diagnostic imaging 1 Occurrences starting 12/29/2023 until 01/27/2025 [facility] Work Phone: Comment on above: 1 Occurrences starting 12/29/2023 until 01/27/2025 XR Chest PA and Lateral [facility] End: 01-18-2024 XR FOOT GENERAL 3V AP/LAT/OBL RIGHT XR FOOT GENERAL 3V AP/LAT/OBL RIGHT Radiology Routine Closed displaced fracture of fifth metatarsal bone of right foot, initial encounter 1 Occurrences starting 12/19/2022 until 01/18/2024 [facility] Work Phone: Comment on above: 1 Occurrences starting 12/19/2022 until 01/18/2024 XR FOOT GENERAL 3V AP/LAT/OBL RIGHT XR FOOT GENERAL 3V AP/LAT/OBL RIGHT Radiology Routine Closed displaced fracture of fifth metatarsal bone of right foot, initial encounter 01/18/2023 10:52 AM EST [facility] Work Phone: End: 11-25-2023 XR HIP BILATERAL 5V PEL/AP/LAT EACH HIP XR HIP BILATERAL 5V PEL/AP/LAT EACH HIP Radiology Routine Hip pain, unspecified laterality 1 Occurrences starting 10/26/2022 until 11/25/2023 [facility] Work Phone: Comment on above: 1 Occurrences starting 10/26/2022 until 11/25/2023 XR HIP BILATERAL 5V PEL/AP/LAT EACH HIP XR HIP BILATERAL 5V PEL/AP/LAT EACH HIP Radiology Routine Hip pain, unspecified laterality 10/26/2022 2:59 PM EDT [facility] Work Phone: [facility] Immunizations Immunization Date Immunization Notes Care Provider Stella [facility] 07-24-2024 COVID-19 vaccine, ag e 12+ yr (PFIZER-BIONTECH COMIRNATY) Amos Floyd MD Work Phone: [facility] 01-23-2024 COVID-19 vaccine, ag e 12+ yr (PFIZER-BIONTECH COMIRNATY) Amos Floyd MD Work Phone: [facility] 01-23-2024 influenza, high dose seasonal, preservative-free Amos Floyd MD Work Phone: [facility] 01-19-2023 COVID-19 vaccine, ag e 12+ yr, season (PFIZER-BIONTECH) Amos Floyd MD Work Phone: [facility] Work Phone: 10-26-2022 influenza (HD-IIV4) vaccine, age 65+ yr, high dose, quadrivalent, PF (FLUZONE HIGH-DOSE) Amos Floyd MD Work Phone: [facility] 10-26-2022 influenza virus vacc ine, unspecified formulation 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 Amos Floyd Work Phone: [facility] 11-17-2021 influenza, seasonal, injectable Dr. Amos Floyd Work Phone: [facility] 07-20-2021 COVID-19 vaccine, ag e 12+ yr (PFIZER-BIONTECH - LOPEZ TOP) Amos Floyd MD Work Phone: [facility] Work Phone: 12-26-2020 SARS-CoV-2, Unspecified Tino Mcdonough MD Work Phone: [facility] Work Phone: 12-09-2020 influenza, injectabl e, quadrivalent, contains preservative Elisa Mcdonough MD Work Phone: [facility] Work Phone: 11-20-2020 influenza, high-dose , quadrivalent vaccine (FLUZONE HIGH DOSE QUADRIVALENT) Amos Floyd MD Work Phone: [facility] Work Phone: 06-19-2020 COVID-19 vaccine, ag e 12+ yr (PFIZER-BIONTECH - PURPLE TOP) Amos Floyd MD Work Phone: [facility] Work Phone: 05-26-2020 COVID-19 vaccine, ag e 12+ yr (PFIZER-BIONTECH - PURPLE TOP) Amos Floyd MD Work Phone: [facility] Work Phone: 02-17-2020 zoster vaccine recombinant Amos Floyd MD Work Phone: [facility] Work Phone: 11-17-2019 influenza, high dose seasonal, preservative-free Amos Floyd MD Work Phone: [facility] 11-17-2019 influenza, high-dose , quadrivalent vaccine (FLUZONE HIGH DOSE QUADRIVALENT) Amos Floyd MD Work Phone: [facility] Work Phone: 11-17-2019 zoster vaccine recombinant Amos Floyd MD Work Phone: [facility] Work Phone: 11-13-2019 influenza, injectabl e, quadrivalent, contains preservative Elisa Mcdonough MD Work Phone: [facility] Work Phone: 11-11-2019 tetanus toxoid, redu rk diphtheria toxoid, and acellular pertussis vaccine, adsorbed Dr. Amos Floyd Work Phone: [facility] 11-08-[address] Amos Floyd Work Phone: [facility] 11-08-2019 influenza, seasonal, injectable, preservative free Elisa Mcdonough MD Work Phone: [facility] Work Phone: 12-10-2018 influenza, high dose seasonal, preservative-free Amos Floyd MD Work Phone: [facility] Work Phone: 10-21-2018 influenza, injectabl e, quadrivalent, contains preservative Elisa Mcdonough MD Work Phone: [facility] Work Phone: 12-21-2017 pneumococcal vaccine , unspecified formulation Aoms Floyd MD Work Phone: [facility] Work Phone: 11-02-2017 influenza, high dose seasonal, preservative-free Amos Floyd MD Work Phone: [facility] Work Phone: 10-27-2015 influenza, seasonal, injectable Amos Floyd MD Work Phone: [facility] 08-19-2015 tetanus and diphther ia toxoids, adsorbed, preservative free, for adult use (5 Lf of tetanus toxoid and 2 Lf of diphtheria toxoid) Amos Floyd MD Work Phone: [facility] 12-03-2014 influenza, high dose seasonal, preservative-free Amos Floyd MD Work Phone: [facility] 10-13-2014 influenza, seasonal, injectable Amos Floyd MD Work Phone: [facility] Work Phone: 10-13-2014 zoster vaccine, live Amos Floyd MD Work Phone: [facility] Work Phone: 03-20-2014 pneumococcal conjuga te vaccine, 13 valent Amos Floyd MD Work Phone: [facility] 11-20-2013 influenza, seasonal, injectable Amos Floyd MD Work Phone: [facility] 11-24-2012 influenza virus vacc ine, unspecified formulation Amos Floyd MD Work Phone: [facility] Work Phone: 11-13-[address] Amos Floyd Work Phone: [facility] 11-13-2012 influenza, seasonal, injectable, preservative free Amos Floyd MD Work Phone: [facility] Work Phone: 11-13-2012 pneumococcal Conjuga te, unspecified formulation [address]io [address] [employer] Work Phone: [facility] 11-13-2012 pneumococcal polysaccharide vaccine, 23 valent Amos Floyd MD Work Phone: [facility] Work Phone: 11-13-[address] Oniel Floyd Work Phone: [facility] Work Phone: 11-13-2012 pneumococcal vaccine , unspecified formulation Dr. Amos Floyd Work Phone: [facility] 01-06-2012 influenza virus vacc ine, unspecified formulation Amos Floyd MD Work Phone: [facility] Work Phone: 05-03-2009 tuberculin skin test ; purified protein derivative solution, intradermal Xr [place] Work Phone: [facility] 04-16-2009 novel influenza-H1N1 -09, all formulations Amos Floyd MD Work Phone: [facility] 07-18-2008 pneumococcal polysaccharide vaccine, 23 valent Amos Floyd MD Work Phone: [facility] Work Phone: 01-12-2007 influenza virus vacc ine, unspecified formulation Amos Floyd MD Work Phone: [facility] Work Phone: 12-14-2005 influenza virus vacc ine, unspecified formulation Amos Floyd MD Work Phone: [facility] Work Phone: 04-26-2005 tetanus and diphther ia toxoids, adsorbed, preservative free, for adult use (2 Lf of tetanus toxoid and 2 Lf of diphtheria toxoid) Amos Floyd MD Work Phone: [facility] Payers Date Payer Category Payer Self-pay [id number] 2023 Medicare (Managed Care) [id number] 2023 Private Health Insurance [id number] 2017 Medicare HUMANA MEDICARE HUMANA MEDICARE PPO [id number] 2017-Present [phone] [address] [address] [place] [address] PPO [id number] 2017 Medicare [id number] 2017 Private Health Insurance [id number] 1945 Unknown [id number] [id number] 94 1945 Unknown [id number] 2.16.840.1.146729.3.579.2.1 246 Unknown [id number] 2.16.840.1.460844.3.579.2.4 62 Unknown [id number] 2.16.840.1.693664.3.579.2.4 62 Unknown [id number] 2.16.840.1.949397.3.579.2.4 62 Unknown [id number] 2.16.840.1.100547.3.579.2.4 62 Unknown [id number] 2.16.840.1.621901.3.579.2.4 62 Unknown [id number] 2.16.840.1.962945.3.579.2.4 62 Unknown [id number] 2.16.840.1.477156.3.579.2.4 62 Unknown [id number] 2.16.840.1.833863.3.579.2.4 62 Unknown [id number] 2.16.840.1.141929.3.579.2.4 62 Unknown [id number] 2.16.840.1.976074.3.579.2.4 62 Unknown [id number] 2.16.840.1.194171.3.579.2.4 62 Unknown [id number] 2.16.840.1.694798.3.579.2.4 62 Unknown [id number] 2.16.840.1.404095.3.579.2.4 62 Unknown [id number] 2.16.840.1.816619.3.579.2.4 62 Unknown [id number] 2.16.840.1.666591.3.579.2.4 62 Unknown [id number] 2.16.840.1.047661.3.579.2.4 62 Unknown [id number] 2.16.840.1.044977.3.579.2.4 62 Unknown [id number] 2.16.840.1.652620.3.579.2.4 62 Unknown [id number] 2.16.840.1.785169.3.579.2.4 62 Unknown [id number] 2.16.840.1.205415.3.579.2.4 62 Unknown [id number] 2.16.840.1.305011.3.579.2.4 62 Unknown [id number] 2.16.840.1.426816.3.579.2.4 62 Unknown [id number] 2.16.840.1.945460.3.579.2.4 62 Social History Date Type Detail Facility Start: 2021 End: 05-23-2023 Tobacco smoking status NHIS Unknown if ever smoked [facility] Start: 06-20-2020 None [facility] Start: 06-20-2020 Homeless [facility] Start: 06-20-2020 [facility] Start: 1945 Sex Assigned At Female [facility] Start: 10-13-2021 End: 08-07-2024 Tobacco smoking status NHIS Never smoked tobacco [facility] Work Phone: Start: 07-20-2021 End: 07-24-2024 Alcohol intake Current non-drinker of alcohol (finding) [facility] Start: 1945 Sex Assigned At Not on file [facility] Start: 07-10-2021 End: 05-24-2023 Exposure to SARS-CoV-2 (event) Not sure [facility] Work Phone: Start: 10-13-2021 End: 05-24-2023 Tobacco use and exposure Smokeless tobacco non-user [facility] Start: 07-20-2022 End: 06-09-2023 History of Social function [facility] Work Phone: Start: 07-20-2022 End: 06-09-2023 Tobacco use panel [facility] Work Phone: Adult Depression Screening Assessment 0 [facility] Work Phone: How often to you hav e a drink containing alcohol? Never [facility] Work Phone: How hard is it for y ou to pay for the very basics like food, housing, medical care, and heating Not very hard [facility] Work Phone: In the past 12 month s, was there a time when you were not able to pay the mortgage or rent on time? No [facility] Work Phone: (I/We) worried wheth er (my/our) food would run out before (I/we) got money to buy more. Never true [facility] Start: 05-20-2024 End: 05-27-2024 Sex Female (finding) [facility] Goals Date Patient Goal Desired Activity /State Personal health goal Functional Status Date Assessment Result Facility 06-13-2023 Are you deaf, or do you have serious difficulty hearing No 06/13/2023 12:43 PM Elizabeth Rolle RN No [facility] 06-13-2023 Are you blind, or do you have serious difficulty seeing, even when wearing glasses No 06/13/2023 12:43 PM Elizabeth Rolle RN No [facility] 06-13-2023 Do you have serious difficulty walking or climbing stairs No 06/13/2023 12:43 PM Elizabeth Rolle RN No [facility] 06-13-2023 Do you have difficul ty dressing or bathing No 06/13/2023 12:43 PM Elizabeth Rolle RN No [facility] 06-13-2023 Because of a physica l, mental, or emotional condition, do you have difficulty doing errands alone such as visiting a physician's office or shopping No 06/13/2023 12:43 PM Elizabeth Rolle RN No [facility] 11-18-2021 Functional status Ambulates [facility] Work Phone: 11-17-2021 Functional status Bedrest [facility] Work Phone: Mental Status Date Assessment Result Facility 08-07-2024 Cognitive function Level Of Cons ciousness Awake;Alert;Appropriate;Fol lows Commands [facility] Work Phone: 06-13-2023 Because of a physica l, mental, or emotional condition, do you have serious difficulty concentrating, remembering, or making decisions No 06/13/2023 12:43 PM Elizabeth Rolle RN No [facility] 05-31-2023 Cognitive function Voice/Name [facility] Work Phone: 05-23-2023 Cognitive function Level Of Cons ciousness Awake;Alert;Appropriate [facility] Work Phone: 05-15-2023 Cognitive function Level Of Cons ciousness Awake;Alert;Appropriate;Fol lows Commands [facility] Work Phone: 11-25-2022 Cognitive function Awake;Alert;A ppropriate;Fol lows Commands [facility] Work Phone: 05-27-2022 Cognitive function Awake;Alert;A ppropriate;Fol lows Commands [facility] Work Phone: 11-26-2021 Cognitive function Awake;Alert;A ppropriate;Fol lows Commands [facility] Work Phone: 11-18-2021 Cognitive function Voice/Name;To uch/Shaking;Li ght Pain;Deep Pain [facility] Work Phone: 11-16-2021 Cognitive function Level Of Cons ciousness Awake;Alert;Appropriate;Fol lows Commands [facility] Work Phone: 05-27-2021 Cognitive function Level Of Cons ciousness Awake;Alert [facility] Work Phone: Clinical Notes 04-20-2009 to 08-07-2024 Note Date & Type Note Facility 08-07-2024 Discharge summary Note Date/Time August 07, 2024 7:39pm [facility] Medical Records Department [address] [place] [address] Emergency Department Summary 08/07/24 MR#: [id number] Acct: [id number] Name: LINDA PERALTA Rep #:[id number] : 1945 79 From: Obinna Frye MD PCP: Dr. Amos Floyd MD Status:R ER Location: ED HPI History of Present Illness Chief Complaint: Hypotension Detail of Chief Complaint: Patient advised to come to the ER by for low heart rate Informant: patient Onset/Context/Timing Onset: Today Context: Sudden Onset Timing: Intermittent Quality: Patient complains of low heart rate and also orthostatic lightheadedness. Location: Cardiovascular Current Severity: Varies Maximum Severity: Orthostatic lightheadedness Worsened by: Upright position Relieved by: Better supine Associated Symptoms Associated Symptoms: Weakness fatigue Narrative Narrative: Patient had a cardiac catheterization earlier this week. Left ventricular ejection fraction was 60%. Normal LV wall motion. Left main angiographically normal. Left anterior descending artery minimal luminal irregularities. Circumflex artery revealed mild luminal irregularities. Right coronary revealedmild luminal irregularities. Valve findings revealed moderate to severe AAS andmitral valve insufficiency grade 2. Patient states she was sent in because of low heart rate. Vital signs in triagerevealed a heart rate of 29. Patient's blood pressure when she was brought backto examination room was very low. She states she does not feel well. She denies headache, double vision blurred vision loss of vision. Eyes rock decreased hearing. No trouble with speech or swallowing. She denies chest discomfort, pressure, tightness or heaviness. She denies dyspnea, dyspnea on exertion or orthopnea. Patient denies abdominal pain. She denies nausea, vomiting or diarrhea. She denies black or maroon-colored stool. She states her stool is very dark. She does complain of frequency and pressure sensation in the suprapubic area. She denies dysuria or hematuria. Prior similar symptoms: No Recent Illness/Hospitalization: Yes (Cardiac catheterization earlier this week) [facility] Medical History MVP (mitral valve prolapse) Aortic stenosis Hypokalemia Elevated serum creatinine Acute prerenal azotemia History of kidney cancer 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 Hypercalcemia Frequent falls Closed head injury (03/20/20) Hypoglycemia (03/20/20) Acute electrocardiogram changes Atopic dermatitis Osteopenia determined by x-ray History of pulmonary embolism detention (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 Orthostatic hypotension 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, stage 3 Moris disease Essential (primary) hypertension Hyperlipidemia Recurrent deep vein thrombosis (DVT) History of non-ST elevation myocardial infarction (NSTEMI) (04/2009) Pyelonephritis Cystocele with rectocele History of DVT (deep vein thrombosis) Hypotension Home Medications ?Medication ?Instructions ?Recorded ?Last Taken ?Type acetaminophen 500 mg tablet 1,000 mg (2 x 500 mg) PO Q 6H PRN 04/08/20 04/07/20 21:32 Rx Pain Score 1-10 denosumab 60 mg/mL subcutaneous 60 mg subcut [id number] #1 mL 11/24/22 Unknown Rx syringe (Prolia) hydrocortisone 10 mg tablet 20 mg (2 x 10 mg) PO DAILY @0600 11/24/22 08/05/24 Rx #90 tabs nitroglycerin 0.4 mg sublingual 0.4 mg sublingual Q5-1 5M PRN 07/26/23 Unknown Rx tablet Cardiac/Chest Pain #25 tabs warfarin 2.5 mg tablet 2.5 mg PO DAILY@1700 #120 ta bs 04/22/24 07/31/24 Rx methenamine hippurate 1 gram tablet 1 g PO QHS 5 Unknown History lisinopril 5 mg tablet 5 mg PO QDAY #90 tabs 08/05/24 Rx simvastatin 20 mg tablet 20 mg PO QHS #90 tabs Unknown Rx ascorbic acid (vitamin C) 1,000 mg 1,000 mg PO QHS Unknown History tablet Allergy/AdvReac Type Severity Reaction Status Date / Time ciprofloxacin (From Cipro) Allergy Rash Verified 08/07/24 15:53 Penicillins Allergy Rash Verified 08/07/24 15:53 Family History Father CVA (cerebral vascular accident) Mother Myocardial infarction, Onset Age: 87 Other History of DVT (deep vein 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 Surgical History History of left heart catheterization (04/2009) History of left nephrectomy (2000) History of total abdominal hysterectomy History of bladder repair surgery H/O partial nephrectomy (2009) H/O total cystectomy Social History Smoking Status: Never smoker alcohol intake: never substance use type: does not use caffeine: Yes what type of physical activity do you participate in: walking seatbelt use: always do you feel safe at home: Yes additional social history: [place]- Retired patient is retired ROS ROS ED Constitutional Constitutional ED: Denies chills, fever(s), subjective, sweats or weight loss Eyes Eyes: Denies blurry vision, change in vision or diplopia ENT ENT ED: Denies ear pain, rhinorrhea or sore throat Cardiovascular Cardiovascular: Reports other Details: Orthostatic lightheadedness ; Denies chest pain, orthopnea, palpitations, paroxysmal nocturnal dyspnea or racing heartbeat Respiratory/Chest Respiratory/Chest: Denies cough, dyspnea, dyspnea on exertion, orthopnea or paroxysmal nocturnal dyspnea Gastrointestinal Gastrointestinal: Denies abdominal pain, constipation, diarrhea, melena or vomiting Genitourinary Genitourinary ED: Reports other Details: Urgency pressure sensation in the suprapubic area ; Denies dysuria, hematuria or urinary frequency Musculoskeletal Musculoskeletal: Denies arthralgias, back pain or myalgias Integumentary Denies Abrasions or rash Neurologic Neurologic: Reports weakness; Denies headache(s) or paresthesias Endocrine Endocrinology: Denies cold intolerance or heat intolerance Hematologic/Lymphatic Hematologic/Lymphatic: Reports systems reviewed and no addt'l complaints, exceptas documented EXAM Physical Exam Const Vital Signs: 08/07/24 15:49 08/07/24 16:00 08/07/24 16:01 Temperature 98 F Temperature Source Oral Pulse Rate 29 L 115 H Respiratory Rate 16 17 Respiratory Effort Normal Respiratory Pattern Normal Blood Pressure 114/92 H Blood Pressure Mean 99 Pulse Ox 98 97 Oxygen Delivery Method Room Air Room Air 08/07/24 16:02 08/07/24 16:04 08/07/24 16:22 Temperature Temperature Source Pulse Rate 93 Respiratory Rate 22 H Respiratory Effort Respiratory Pattern Blood Pressure 67/56 L 72/53 L 99/63 Blood Pressure Mean 59 59 75 Pulse Ox 96 Oxygen Delivery Method Room Air 08/07/24 16:30 08/07/24 17:00 08/07/24 17:30 Temperature 98.4 F Temperature Source Oral Pulse Rate 102 H 99 103 H Respiratory Rate 15 24 H 20 H Respiratory Effort Respiratory Pattern Blood Pressure 97/84 H 110/76 110/76 Blood Pressure Mean 88 87 87 Pulse Ox 94 100 100 Oxygen Delivery Method Room Air Room Air Room Air 08/07/24 18:00 Temperature Temperature Source Pulse Rate 101 H Respiratory Rate 18 Respiratory Effort Respiratory Pattern Blood Pressure 109/77 Blood Pressure Mean 87 Pulse Ox 98 Oxygen Delivery Method Room Air Heart rate at 1549 was 29. Patient had blood pressure readings of 67/56 at 1602and 72/53 at 1604. Patient does not appear well. Positive well nourished and well developed; Negative for obese, cachectic or contractures General Appearance ED: well developed; Negative for cachectic, contractures, cyanotic, diaphoretic or pallor Nutritional Appearance: Negative for cachectic or obese HEENT Reports dry mucous membranes HEENT Narrative: Head is atraumatic normocephalic. Ears normal. Nares patent. Posterior pharynx is normal. Mouth ED: Yes dry mucous membranes Mouth: dry mucous membranes Eyes PERRL and EOMs intact bilaterally General Eye ED: Negative for pale conjunctiva or scleral icterus Neck no lymphadenopathy, supple and no JVD Chest Wall inspection of chest normal and palpation of chest normal Resp normal respiratory effort and clear to auscultation bilaterally Cardio regular rate, regular rhythm, S1 normal heart sound and S2 normal heart sound; Negative for no murmurs GI normal to inspection, nondistended, normoactive bowel sounds, non-tender and non-distended; Negative for hepatosplenomegaly or no masses GI Narrative: Patient has evidence of external hemorrhoids. There is no active bleeding. Stool is light brown in color. There is no palpable masses on rectal exam. Back/Spine no CVA tenderness Thoracic Spine / Upper Back: Negative for thoracic spinal tenderness Lumbar Spine / Lower Back: Negative for lumbar spinal tenderness Extremity normal to inspection Extremity Narrative: Patient does have a hematoma cath site right wrist. Neuro oriented x3 and CN's II-XII intact bilaterally Sensorium / Orientation: alert Psych mental status grossly normal Skin no rashes or lesions noted, no wounds and skin turgor normal General Skin Exam: Negative for jaundice or pallor Sepsis Attestation Sepsis Alert: Yes Sepsis Attestation: Agree w/Sepsis Date exam was performed: 08/07/24 Time exam was performed: 19:30 Possible Source of Sepsis: Genitourinary Sepsis Organ Dysfunction Criteria Present: SBP < 90 mmHg or MAP < 65 mmHg Fluid Resuscitation Fluid resuscitation indicated?: Yes Fluid Resuscitation ordered: 30 ml/kg fluid bolus ordered Amount of fluid ordered: 2,000 (Patient initially responded to 1 L. Second liter was ordered. Also has Moris's disease and may be contributory. Will give stress dose of Solu-Cortef.) MDM MDM MDM Narrative Medical decision making narrative: Since patient is hypotensive reported dark stool will obtain CBC to assess H&H. Quan was placed for accurate I's and O's and fluid bolus was ordered. Because of her urinary pressure sensation a UA was ordered which can be obtained when the Quan is placed. BMP was obtained to assess electrolytes, renal function and anion gap. Troponin was obtained as well. Patient responded to the fluid bolus. History & Record Review Discussion w/independent historian: Patient Lab Data Attestation: I reviewed the patient's lab results. Lab results narrative: White count is elevated 15.1 thousand. There is a slight shift with no bandemia. H&H is unremarkable. Basic metabolic panel reveals a CO2 of 14.6 with an anion gap of 15. BUN and creatinine are elevated at 43 and 1.59 with anestimated GFR of 32. BUN to creatinine ratio was 27:1. Glucose is slightly elevated 139. First troponin is elevated at 60. Uncertain what this means in light of her recent cath report. Labs: Laboratory Results - last 24 hr 08/07/24 08/07/24 16:06 18:06 WBC 15.1 H RBC 5.11 Hgb 15.2 H Hct 46.5 MCV 91.0 MCH 29.7 MCHC 32.7 RDW Std Deviation 52.4 H RDW Coeff of Slava 15.6 H Plt Count 193 MPV 11.9 Immature Gran % (Auto) 1.600 H Neut % (Auto) 71.7 H Lymph % (Auto) 15.0 L [place] % (Auto) 9.7 Eos % (Auto) 1.1 Baso % (Auto) 0.9 Absolute Neuts (auto) 10.8 H Absolute Lymphs (auto) 2.26 Nucleated RBC % 0 Sodium 137 Potassium 4.5 Chloride 107 Carbon Dioxide 14.6 L Anion Gap 15 BUN 43 H Creatinine 1.59 H Estim Creat Clear Calc 25.08 L Est GFR (MDRD) Non-Af 32 L BUN/Creatinine Ratio 27.3 H Glucose 139 H Calcium 9.9 Total Bilirubin 0.52 AST 27 ALT 20 Alkaline Phosphatase 102 Troponin T High Sens 60 H* Troponin T Hi Sens 2 Hr 55 H* Total Protein 6.3 Albumin 4.1 Globulin 2.2 Albumin/Globulin Ratio 1.8 Urine Color Yellow Urine Clarity Clear Urine pH 6.0 Ur Specific [place] 1.015 Urine Protein 30 H Urine Glucose (UA) Normal Urine Ketones Negative Urine Occult Blood 150 H Urine Nitrite Positive H Urine Bilirubin Negative Urine Urobilinogen Normal Ur Leukocyte Esterase 25 H Urine RBC 0-5 SEEN Urine WBC 5-10 SEEN Ur Squamous Epith Cells 0 SEEN Urine Bacteria 3+ Urine Mucus 0 SEEN Urine is consistent with infection. Patient's having a downward trend of her blood pressure. Will administer additional liter of normal saline. EKG Initial EKG: Attestation: I personally reviewed and interpreted this EKG as follows: Interpretation: Sinus Tachycardia (Rate is 116. NH interval is 130 ms perQRS duration 80 ms. QT duration. 14 ms. [place] is normal. Patient has evidenceof atrial enlargement. There is also evidence of LVH. There is no acute ischemic changes.) Management Discussion w/another healthcare provider: Hospitalist and Pre K Lead Teacher (Her fiberglass boat finisher was contacted since he sent her in.) Treatment and Re-Evaluation :: Suspect patient is hypotensive due to urosepsis. Since she only has a rash to penicillin she was treated with 2 g of Rocephin. Since her blood pressure is trending downwards additional liter of normal saline was ordered. Critical Care Time Critical Care Time: Yes Critical care time (excluding procedures): 30-74 minutes (33), Including time spent: (History, physical, documentation, review of prior records, independent rotation laboratory results), Discussing w/Patient &/or Family/Multimedia Assistant, Discussing w/Consultants (Dr. 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 Prescriptions: No Action hydrocortisone 10 mg tablet 20 mg PO DAILY@0600 Qty: 90 6RF Rx Instructions: 2 tabs qam 1 tab qpm Prolia 60 mg/mL syringe 60 mg subcut [id number] Qty: 1 1RF methenamine hippurate 1 gram tablet 1 g PO QHS nitroglycerin 0.4 mg tablet, sublingual 0.4 mg SUBLINGUAL Q5-15M PRN (Reason: Cardiac/Chest Pain) Qty: 25 3RF lisinopril 5 mg tablet 5 mg PO QDAY Qty: 90 3RF simvastatin 20 mg tablet 20 mg PO QHS Qty: 90 3RF acetaminophen 500 MG tablet 1,000 mg PO Q6H PRN (Reason: Pain Score 1-10) 0RF ascorbic acid (vitamin C) 1,000 mg tablet 1,000 mg PO QHS warfarin 2.5 mg tablet 2.5 mg PO DAILY@1700 Qty: 120 3RF Protocol: Dose Management Condition: Monday Dose/Route: 2.5 mg Instruction: 1 x 2.5 mg tablet Condition: Monday Dose/Route: 5 mg Instruction: 2 x 2.5 mg tablets Condition: Monday Dose/Route: 2.5 mg Instruction: 1 x 2.5 mg tablet Condition: Monday Dose/Route: 2.5 mg Instruction: 1 x 2.5 mg tablet Condition: Dose/Route: 2.5 mg Instruction: 1 x 2.5 mg tablet Condition: Monday Dose/Route: 2.5 mg Instruction: 1 x 2.5 mg tablet Condition: Monday Dose/Route: 2.5 mg Instruction: 1 x 2.5 mg tablet Protocol Text: Adjustment Start Date: Monday06/21/24 INR Value: 2.0 INR Date: 06/21/24 Recheck Date: 07/19/24 Rx Instructions: daily or as directed Primary Care Provider: Amos Floyd Referrals: Amos Floyd MD [Primary Care Provider] - Print Language: Ugandan What to do if you have Problems For any increased pain, shortness of breath, bleeding, nausea or vomiting, chestpain, or any unexpected problems, contact your Primary Care Provider. Call [facility] ([phone]) or report to the closest Emergency Room. Call 911 if necessary. 08/07/241938 <Electronically signed by Obinna Frye MD> Cosigner Signature (if applicable): CC: Dr. Amos Floyd MD ~ Signed [facility] Work Phone: [phone] Discharge summary [facility] Medical Records Department [address] [place] [id number] Emergency Department Summary 08/07/24 MR#: [id number] Acct: [id number] Name: LINDA PERALTA Rep #:[id number] : 1945 79 From: Obinna Frye MD PCP: Dr. Amos Floyd MD Status:R EG ER Location: ED HPI History of Present Illness Chief Complaint: Hypotension Detail of Chief Complaint: Patient advised to come to the ER by for low heart rate Informant: patient Onset/Context/Timing Onset: Today Context: Sudden Onset Timing: Intermittent Quality: Patient complains of low heart rate and also orthostatic lightheadedness. Location: Cardiovascular Current Severity: Varies Maximum Severity: Orthostatic lightheadedness Worsened by: Upright position Relieved by: Better supine Associated Symptoms Associated Symptoms: Weakness fatigue Narrative Narrative: Patient had a cardiac catheterization earlier this week. Left ventricular ejection fraction was 60%. Normal LV wall motion. Left main angiographically normal. Left anterior descending artery minimal luminal irregularities. Circumflex artery revealed mild luminal irregularities. Right coronary reveal edmild luminal irregularities. Valve findings revealed moderate to severe AAS andmitral valve insufficiency grade 2. Patient states she was sent in because of low heart rate. Vital signs in triagerevealed a heart rate of 29. Patient's blood pressure when she was brought backto examination room was very low. She states she does not feel well. She denies headache, double vision blurred vision loss of vision. Eyes rock decreased hearing. Notrouble with speech or swallowing. She denies chest discomfort, pressure, tightness or heaviness. She denies dyspnea, dyspnea on exertion or orthopnea. Patient denies abdominal pain. She denies nausea, vomiting or diarrhea. She denies black or maroon-colored stool. She states her stool is very dark. She does complain of frequency and pressure sensation in the suprapubic area. She denies dysuria or hematuria. Prior similar symptoms: No Recent Illness/Hospitalization: Yes (Cardiac catheterization earlier this week) [facility] Medical History MVP (mitral valve prolapse) Aortic stenosis Hypokalemia Elevated serum creatinine Acute prerenal azotemia History of kidney cancer 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 Hypercalcemia Frequent falls Closed head injury (03/20/20) Hypoglycemia (03/20/20) Acute electrocardiogram changes Atopic dermatitis Osteopenia determined by x-ray History of pulmonary embolism detention (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 Orthostatic hypotension 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, stage 3 [place] disease Essential (primary) hypertension Hyperlipidemia Recurrent deep vein thrombosis (DVT) History of non-ST elevation myocardial infarction (NSTEMI) (04/2009) Pyelonephritis Cystocele with rectocele History of DVT (deep vein thrombosis) Hypotension Home Medications ?Medication ?Instructions ?Recorded ?Last Taken ?Type acetaminophen 500 mg tablet 1,000 mg (2 x 500 mg) PO Q 6H PRN 04/08/20 04/07/20 21:32 Rx Pain Score 1-10 denosumab 60 mg/mL subcutaneous 60 mg subcut [id number] #1 mL 10/05/23 Unknown Rx syringe (Prolia) hydrocortisone 10 mg tablet 20 mg (2 x 10 mg) PO DAILY @0600 11/24/22 08/05/24 Rx #90 tabs nitroglycerin 0.4 mg sublingual 0.4 mg sublingual Q5-1 5M PRN 07/26/23 Unknown Rx tablet Cardiac/Chest Pain #25 tabs warfarin 2.5 mg tablet 2.5 mg PO DAILY@1700 #120 ta bs 04/22/24 07/31/24 Rx methenamine hippurate 1 gram tablet 1 g PO QHS 5 Unknown History lisinopril 5 mg tablet 5 mg PO QDAY #90 tabs 08/05/24 Rx simvastatin 20 mg tablet 20 mg PO QHS #90 tabs Unknown Rx ascorbic acid (vitamin C) 1,000 mg 1,000 mg PO QHS Unknown History tablet Allergy/AdvReac Type Severity Reaction Status Date / Time ciprofloxacin (From Cipro) Allergy Rash Verified 08/07/24 15:53 Penicillins Allergy Rash Verified 08/07/24 15:53 Family History Father CVA (cerebral vascular accident) Mother Myocardial infarction, Onset Age: 87 Other History of DVT (deep vein thrombosis) detention (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 Surgical History History of left heart catheterization (04/2009) History of left nephrectomy (2000) History of total abdominal hysterectomy History of bladder repair surgery H/O partial nephrectomy (2009) H/O total cystectomy Social History Smoking Status: Never smoker alcohol intake: never substance use type: does not use caffeine: Yes what type of physical activity do you participate in: walking seatbelt use: always do you feel safe at home: Yes additional social history: [employer]- Retired patient is retired ROS ROS ED Constitutional Constitutional ED: Denies chills, fever(s), subjective, sweats or weight loss Eyes Eyes: Denies blurry vision, change in vision or diplopia ENT ENT ED: Denies ear pain, rhinorrhea or sore throat Cardiovascular Cardiovascular: Reports other Details: Orthostatic lightheadedness ; Denies chest pain, orthopnea, palpitations, paroxysmal nocturnal dyspnea or racing heartbeat Respiratory/Chest Respiratory/Chest: Denies cough, dyspnea, dyspnea on exertion, orthopnea or paroxysmal nocturnal dyspnea Gastrointestinal Gastrointestinal: Denies abdominal pain, constipation, diarrhea, melena or vomiting Genitourinary Genitourinary ED: Reports other Details: Urgency pressure sensation in the suprapubic area ; Denies dysuria, hematuria or urinary frequency Musculoskeletal Musculoskeletal: Denies arthralgias, back pain or myalgias Integumentary Denies Abrasions or rash Neurologic Neurologic: Reports weakness; Denies headache(s) or paresthesias Endocrine Endocrinology: Denies cold intolerance or heat intolerance Hematologic/Lymphatic Hematologic/Lymphatic: Reports systems reviewed and no addt'l complaints, exceptas documented EXAM Physical Exam Const Vital Signs: 08/07/24 15:49 08/07/24 16:00 08/07/24 16:01 Temperature 98 F Temperature Source Oral Pulse Rate 29 L 115 H Respiratory Rate 16 17 Respiratory Effort Normal Respiratory Pattern Normal Blood Pressure 114/92 H Blood Pressure Mean 99 Pulse Ox 98 97 Oxygen Delivery Method Room Air Room Air 08/07/24 16:02 08/07/24 16:04 08/07/24 16:22 Temperature Temperature Source Pulse Rate 93 Respiratory Rate 22 H Respiratory Effort Respiratory Pattern Blood Pressure 67/56 L 72/53 L 99/63 Blood Pressure Mean 59 59 75 Pulse Ox 96 Oxygen Delivery Method Room Air 08/07/24 16:30 08/07/24 17:00 08/07/24 17:30 Temperature 98.4 F Temperature Source Oral Pulse Rate 102 H 99 103 H Respiratory Rate 15 24 H 20 H Respiratory Effort Respiratory Pattern Blood Pressure 97/84 H 110/76 110/76 Blood Pressure Mean 88 87 87 Pulse Ox 94 100 100 Oxygen Delivery Method Room Air Room Air Room Air 08/07/24 18:00 Temperature Temperature Source Pulse Rate 101 H Respiratory Rate 18 Respiratory Effort Respiratory Pattern Blood Pressure 109/77 Blood Pressure Mean 87 Pulse Ox 98 Oxygen Delivery Method Room Air Heart rate at 1549 was 29. Patient had blood pressure readings of 67/56 at 1602and 72/53 at 1604. Patient does not appear well. Positive well nourished and well developed; Negative for obese, cachectic or contractures General Appearance ED: well developed; Negative for cachectic, contractures, cyanotic, diaphoretic or pallor Nutritional Appearance: Negative for cachectic or obese HEENT Reports dry mucous membranes HEENT Narrative: Head is atraumatic normocephalic. Ears normal. Nares patent. Posterior pharynx is normal. Mouth ED: Yes dry mucous membranes Mouth: dry mucous membranes Eyes PERRL and EOMs intact bilaterally General Eye ED: Negative for pale conjunctiva or scleral icterus Neck no lymphadenopathy, supple and no JVD Chest Wall inspection of chest normal and palpation of chest normal Resp normal respiratory effort and clear to auscultation bilaterally Cardio regular rate, regular rhythm, S1 normal heart sound and S2 normal heart sound; Negative for no murmurs GI normal to inspection, nondistended, normoactive bowel sounds, non-tender and non-distended; Negative for hepatosplenomegaly or no masses GI Narrative: Patient has evidence of external hemorrhoids. There is no active bleeding. Stool is light brown in color. There is no palpable masses on rectal exam. Back/Spine no CVA tenderness Thoracic Spine / Upper Back: Negative for thoracic spinal tenderness Lumbar Spine / Lower Back: Negative for lumbar spinal tenderness Extremity normal to inspection Extremity Narrative: Patient does have a hematoma cath site right wrist. Neuro oriented x3 and CN's II-XII intact bilaterally Sensorium / Orientation: alert Psych mental status grossly normal Skin no rashes or lesions noted, no wounds and skin turgor normal General Skin Exam: Negative for jaundice or pallor Sepsis Attestation Sepsis Alert: Yes Sepsis Attestation: Agree w/Sepsis Date exam was performed: 08/07/24 Time exam was performed: 19:30 Possible Source of Sepsis: Genitourinary Sepsis Organ Dysfunction Criteria Present: SBP < 90 mmHg or MAP < 65 mmHg Fluid Resuscitation Fluid resuscitation indicated?: Yes Fluid Resuscitation ordered: 30 ml/kg fluid bolus ordered Amount of fluid ordered: 2,000 (Patient initially responded to 1 L. Second liter was ordered. Also has [place]'s disease and may be contributory. Will give stress dose of Solu-Cortef.) MDM MDM MDM Narrative Medical decision making narrative: Since patient is hypotensive reported dark stool will obtain CBC to assess H&H. Quan was placed for accurate I's and O's and fluid bolus was ordered. Because of her urinary pressure sensation a UA was ordered which can be obtained when the Quan is placed. BMP was obtained to assess electrolytes, renal function and anion gap. Troponin was obtained as well. Patient responded to the fluid bolus. History & Record Review Discussion w/independent historian: Patient Lab Data Attestation: I reviewed the patient's lab results. Lab results narrative: White count is elevated 15.1 thousand. There is a slight shift with no bandemia. H&H is unremarkable. Basic metabolic panel reveals a CO2 of 14.6 with an anion gap of 15. BUN and creatinine are elevated at 43 and 1.59 with anestimated GFR of 32. BUN to creatinine ratio was 27:1. Glucose is slightly elevated 139. First troponin is elevated at 60. Uncertain what this means in light of her recent cath report. Labs: Laboratory Results - last 24 hr 08/07/24 08/07/24 16:06 18:06 WBC 15.1 H RBC 5.11 Hgb 15.2 H Hct 46.5 MCV 91.0 MCH 29.7 MCHC 32.7 RDW Std Deviation 52.4 H RDW Coeff of Slava 15.6 H Plt Count 193 MPV 11.9 Immature Gran % (Auto) 1.600 H Neut % (Auto) 71.7 H Lymph % (Auto) 15.0 L [place] % (Auto) 9.7 Eos % (Auto) 1.1 Baso % (Auto) 0.9 Absolute Neuts (auto) 10.8 H Absolute Lymphs (auto) 2.26 Nucleated RBC % 0 Sodium 137 Potassium 4.5 Chloride 107 Carbon Dioxide 14.6 L Anion Gap 15 BUN 43 H Creatinine 1.59 H Estim Creat Clear Calc 25.08 L Est GFR (MDRD) Non-Af 32 L BUN/Creatinine Ratio 27.3 H Glucose 139 H Calcium 9.9 Total Bilirubin 0.52 AST 27 ALT 20 Alkaline Phosphatase 102 Troponin T High Sens 60 H* Troponin T Hi Sens 2 Hr 55 H* Total Protein 6.3 Albumin 4.1 Globulin 2.2 Albumin/Globulin Ratio 1.8 Urine Color Yellow Urine Clarity Clear Urine pH 6.0 Ur Specific [place] 1.015 Urine Protein 30 H Urine Glucose (UA) Normal Urine Ketones Negative Urine Occult Blood 150 H Urine Nitrite Positive H Urine Bilirubin Negative Urine Urobilinogen Normal Ur Leukocyte Esterase 25 H Urine RBC 0-5 SEEN Urine WBC 5-10 SEEN Ur Squamous Epith Cells 0 SEEN Urine Bacteria 3+ Urine Mucus 0 SEEN Urine is consistent with infection. Patient's having a downward trend of her blood pressure. Will administer additional liter of normal saline. EKG Initial EKG: Attestation: I personally reviewed and interpreted this EKG as follows: Interpretation: Sinus Tachycardia (Rate is 116. NH interval is 130 ms perQRS duration 80 ms. QT duration. 14 ms. [place] is normal. Patient has evidenceof atrial enlargement. There is also evidence of LVH. There is no acute ischemic changes.) Management Discussion w/another healthcare provider: Hospitalist and Pre K Lead Teacher (Her fiberglass boat finisher was contacted since he sent her in.) Treatment and Re-Evaluation :: Suspect patient is hypotensive due to urosepsis. Since she only has a rash to penicillin she was treated with 2 g of Rocephin. Since her blood pressure is trending downwards additional liter of normal saline was ordered. Critical Care Time Critical Care Time: Yes Critical care time (excluding procedures): 30-74 minutes (33), Including time spent: (History, physical, documentation, review of prior records, independent rotation laboratory results), Discussing w/Patient &/or Family/Multimedia Assistant, Discussing w/Consultants (Dr. 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 Prescriptions: No Action hydrocortisone 10 mg tablet 20 mg PO DAILY@0600 Qty: 90 6RF Rx Instructions: 2 tabs qam 1 tab qpm Prolia 60 mg/mL syringe 60 mg subcut [id number] Qty: 1 1RF methenamine hippurate 1 gram tablet 1 g PO QHS nitroglycerin 0.4 mg tablet, sublingual 0.4 mg SUBLINGUAL Q5-15M PRN (Reason: Cardiac/Chest Pain) Qty: 25 3RF lisinopril 5 mg tablet 5 mg PO QDAY Qty: 90 3RF simvastatin 20 mg tablet 20 mg PO QHS Qty: 90 3RF acetaminophen 500 MG tablet 1,000 mg PO Q6H PRN (Reason: Pain Score 1-10) 0RF ascorbic acid (vitamin C) 1,000 mg tablet 1,000 mg PO QHS warfarin 2.5 mg tablet 2.5 mg PO DAILY@1700 Qty: 120 3RF Protocol: Dose Management Condition: Monday Dose/Route: 2.5 mg Instruction: 1 x 2.5 mg tablet Condition: Monday Dose/Route: 5 mg Instruction: 2 x 2.5 mg tablets Condition: Monday Dose/Route: 2.5 mg Instruction: 1 x 2.5 mg tablet Condition: Monday Dose/Route: 2.5 mg Instruction: 1 x 2.5 mg tablet Condition: Dose/Route: 2.5 mg Instruction: 1 x 2.5 mg tablet Condition: Monday Dose/Route: 2.5 mg Instruction: 1 x 2.5 mg tablet Condition: Monday Dose/Route: 2.5 mg Instruction: 1 x 2.5 mg tablet Protocol Text: Adjustment Start Date: Monday06/21/24 INR Value: 2.0 INR Date: 06/21/24 Recheck Date: 07/19/24 Rx Instructions: daily or as directed Primary Care Provider: Amos Floyd Referrals: Amos Floyd MD [Primary Care Provider] - Print Language: Ugandan What to do if you have Problems For any increased pain, shortness of breath, bleeding, nausea or vomiting, chestpain, or any unexpected problems, contact your Primary Care Provider. Call [facility] ([phone]) or report tothe closest Emergency Room. Call 911 if necessary. 08/07/241938 Cosigner Signature (if applicable): CC: Dr. Amos Floyd MD ~ Signed [facility]06-04-2025 NoteHNO ID: [id number] Author: AMOS FLOYD MD Service: ? Author Type: Physician Type: Progress Notes Filed: 07/24/2024 12:45 Note Text: This note was created using [employer]. Subjective Linda Peralta is a 79 year old female. Recording using ambient [employer] software for draft documentation of the visit was discussed with the patient/authorized brewery representative; all questions welcomed and answered. Patient/authorized brewery representative agreed to proceed Heart Murmur: - Under the care of Dr. Marte. - Recent TOMI performed; heart catheterization scheduled. - Denies headaches, dizziness, or chest pain. - Experiences dyspnea when walking quickly. - Taking warfarin; INR levels monitored by Dr. Marte's office, with recent levels around 2.2-2.3. - Reports recurrent subconjunctival hemorrhages, attributing them to warfarin use. Hypothyroidism: - Managed by Dr. Gregory; last visit was 1-2 weeks ago. Chronic Rhinitis: - Chronic clear rhinorrhea, worse recently. - Denies sneezing, itching, epistaxis, or seasonal variation. - Rhinorrhea occurs while eating. Fatigue: - Reports increased fatigue, attributing it to age. COVID-19 Vaccination: - No adverse reactions to previous COVID-19 vaccinations. Review of Systems Constitutional: Positive for fatigue. Negative for chills and fever. HENT: Positive for postnasal drip and rhinorrhea. Negative for congestion and sore throat. Eyes: Negative for pain and visual disturbance. Respiratory: Negative for cough and shortness of breath. Cardiovascular: Negative for chest pain, palpitations and leg swelling. Neurological: Negative for dizziness and headaches. 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 Thyroid nodule greater than or equal to 1 cm in diameter incidentally noted on imaging study, right side. Social History Tobacco Use Smoking status: Never Smokeless tobacco: Never Vaping Use Vaping status: Never Used Substance Use Topics Alcohol use: No Drug use: No Current Outpatient Medications Medication Sig Ascorbic Acid 1,000 mg tablet Take 1,000 mg by mouth daily at bedtime. lisinopril (ZESTRIL) 5 mg tablet Take 1 tablet by mouth every afternoon. Methenamine Hippurate (HIPREX) 1 gram tablet Take 1 g by mouth daily at bedtime. simvastatin (ZOCOR) 20 mg tablet Take 1 tablet by mouth daily at bedtime. amLODIPine (NORVASC) 5 mg tablet Take 10 mg by mouth once daily. nitroglycerin sublingual (NITROQUICK) 0.4 mg SL tablet Dissolve 1 tablet under the tongue every 5 minutes as needed. warfarin (COUMADIN) 2.5 mg tablet Take 2.5 mg by mouth. 2.5 mg daily except 5 mg on Mondays acetaminophen (TYLENOL) 325 mg tablet Take 650 mg by mouth every 6 hours as needed. ipratropium bromide (ATROVENT) 42 mcg (0.06 %) nasal spray Use 2 sprays in the nose four times daily. hydrocortisone (CORTEF) 10 mg tablet Take 2 tablets by mouth every morning AND 1 tablet every evening. As directed per endocrinology.. No current facility-administered medications for this visit. Objective BP 126/82 Pulse 80 Resp 20 Wt 65.8 kg (145 lb 1 oz) BMI 26.53 kg/m? Physical Exam Constitutional: General: She is not in acute distress. Appearance: She is not ill-appearing. HENT: Nose: Rhinorrhea present. Mouth/Throat: Mouth: Mucous membranes are moist. Pharynx: Oropharynx is clear. Eyes: Extraocular Movements: Extraocular movements intact. Conjunctiva/sclera: Left eye: Hemorrhage present. No exudate. Cardiovascular: Rate and Rhythm: Rhythm irregular. Heart sounds: S1 normal and S2 normal. Murmur (at base) heard. Systolic murmur is present with a grade of 2/6. Abdominal: Tenderness: There is no abdominal tenderness. Musculoskeletal: Right lower leg: No edema. Left lower leg: No edema. Neurological: General: No focal deficit present. Mental Status: She is alert. Gait: Gait normal. Assessment and Plan 1. ASHD (arteriosclerotic heart disease) - ICD9: 414.00, ICD10: I25.10 (primary diagnosis) - For heart cath per Dr. Marte. 2. Primary hypertension - ICD9: 401.9, ICD10: I10 - Controlled - Continue current medications 3. Nonrheumatic aortic valve stenosis - ICD9: 424.1, ICD10: I35.0 - Evaluation ongoing for valve surgery. 4. Subconjunctival hemorrhage of left eye - ICD9: 372.72, ICD10: H11.32 Incidental finding. Asymptomatic. 5. Chronic nonallergic rhinitis - ICD9: 472.0, ICD10: J31.0 Patient's neighbor suggested this medication. She was on it years ago (more content not included)...[facility]06-04-2025 History of Present illness Narrative* Amos Floyd MD - 07/24/2024 11:28 AM EDT This note was created using [employer]. Subjective Linda Peralta is a 79 year old female. 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 Patient/authorized brewery representative agreed to proceed Heart Murmur: - Under the care of Dr. Marte. - Recent TOMI performed; heart catheterization scheduled. - Denies headaches, dizziness, or chest pain. - Experiences dyspnea when walking quickly. - Taking warfarin; INR levels monitored by Dr. Marte's office, with recent levels around 2.2-2.3. - Reports recurrent subconjunctival hemorrhages, attributing them to warfarin use. Hypothyroidism: - Managed by Dr. Gregory; last visit was 1-2 weeks ago. Chronic Rhinitis: - Chronic clear rhinorrhea, worse recently. - Denies sneezing, itching, epistaxis, or seasonal variation. - Rhinorrhea occurs while eating. Fatigue: - Reports increased fatigue, attributing it to age. COVID-19 Vaccination: - No adverse reactions to previous COVID-19 vaccinations. Review of Systems Constitutional: Positive for fatigue. Negative for chills and fever. HENT: Positive for postnasal drip and rhinorrhea. Negative for congestion and sore throat. Eyes: Negative for pain and visual disturbance. Respiratory: Negative for cough and shortness of breath. Cardiovascular: Negative for chest pain, palpitations and leg swelling. Neurological: Negative for dizziness and headaches. 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 Thyroid nodule greater than or equal to 1 cm in diameter incidentally noted on imaging study, rightside. Social History Tobacco Use Smoking status: Never Smokeless tobacco: Never Vaping Use Vaping status: Never Used Substance Use Topics Alcohol use: No Drug use: No Current Outpatient Medications Medication Sig Ascorbic Acid 1,000 mg tablet Take 1,000 mg by mouth daily at bedtime. lisinopril (ZESTRIL) 5 mg tablet Take 1 tablet by mouth every afternoon. Methenamine Hippurate (HIPREX) 1 gram tablet Take 1 g by mouth daily at bedtime. simvastatin (ZOCOR) 20 mg tablet Take 1 tablet by mouth daily at bedtime. amLODIPine (NORVASC) 5 mg tablet Take 10 mg by mouth once daily. nitroglycerin sublingual (NITROQUICK) 0.4 mg SL tablet Dissolve 1 tablet under the tongue every 5 minutes as needed. warfarin (COUMADIN) 2.5 mg tablet Take 2.5 mg by mouth. 2.5 mg daily except 5 mg on Mondays acetaminophen (TYLENOL) 325 mg tablet Take 650 mg by mouth every 6 hours as needed. ipratropium bromide (ATROVENT) 42 mcg (0.06 %) nasal spray Use 2 sprays in the nose four times daily. hydrocortisone (CORTEF) 10 mg tablet Take 2 tablets by mouth every morning AND 1 tablet every evening. As directed per endocrinology.. No current facility-administered medications for this visit. Objective BP 126/82 Pulse 80 Resp 20 Wt 65.8 kg (145 lb 1 oz) BMI 26.53 kg/m Physical Exam Constitutional: General: She is not in acute distress. Appearance: She is not ill-appearing. HENT: Nose: Rhinorrhea present. Mouth/Throat: Mouth: Mucous membranes are moist. Pharynx: Oropharynx is clear. Eyes: Extraocular Movements: Extraocular movements intact. Conjunctiva/sclera: Left eye: Hemorrhage present. No exudate. Cardiovascular: Rate and Rhythm: Rhythm irregular. Heart sounds: S1 normal and S2 normal. Murmur (at base) heard. Systolic murmur is present with a grade of 2/6. Abdominal: Tenderness: There is no abdominal tenderness. Musculoskeletal: Right lower leg: No edema. Left lower leg: No edema. Neurological: General: No focal deficit present. Mental Status: She is alert. Gait: Gait normal. Assessment and Plan 1. ASHD (arteriosclerotic heart disease) - ICD9: 414.00, ICD10: I25.10 (primary diagnosis) - For heart cath per Dr. Marte. 2. Primary hypertension - ICD9: 401.9, ICD10: I10 - Controlled - Continue current medications 3. Nonrheumatic aortic valve stenosis - ICD9: 424.1, ICD10: I35.0 - Evaluation ongoing for valve surgery. 4. Subconjunctival hemorrhage of left eye - ICD9: 372.72, ICD10: H11.32 Incidental finding. Asymptomatic. 5. Chronic nonallergic rhinitis - ICD9: 472.0, ICD10: J31.0 Patient's neighbor suggested this medication. She was on it years ago. We agreed to try medication again. - IPRATROPIUM BROMIDE 42 MCG (0.06 %) NASAL SPRAY 6. Stage 3b chronic kidney disease (HCC) - ICD9: 585.3, ICD10: N18.32 - eGFR: 40 Stable - Counseled on avoiding NSAIDs, adequate hydration 7. Adrenal insufficiency (HCC) - ICD9: 255.41, ICD10: E27.40 Stable, and monitored by her shoe reconditioner. - HYDROCORTISONE 10 MG TABLET 8. Encounter for immunization - ICD9: V03.89, ICD10: Z23 - PFIZER-BIONTECH COVID-19 VACCINE AGE 12+ YR ([place]NATY) Amos Floyd MD [facility] Radiology Diagnostic study note [facility] Imaging Services [address] [place], [place] [address] Chest PA and Lateral MR#: [id number] Acct: [id number] Name: LINDA PERALTA Rep #: [id number] : 1945 F 79 From: Bobbi Parada MD PCP: Dr. Amos Floyd MD Status: P RE [facility] [place] Study:Chest PA and Lateral Date of Exam: 07/23/24 Exam# [id number] Ordering Dr: Heaven Bolton CERTIFIED PEER SPECIALIST CERTIFIED PEER SPECIALIST-C PROCEDURE: CHEST PA AND LATERAL 07/23/2024 REASON FOR EXAM: AORTIC VALVE STENOSIS-CARDIAC CATH TECHNIQUE: Frontal and lateral views of the chest. COMPARISON: 05/23/2023 FINDINGS: No focal consolidations. Mild pulmonary vascular congestion. Mild cardiomegaly. Atherosclerotic aortic arch. No pleural effusion or pneumothorax. Minimal multilevel compression deformities of the thoracic spine. RAD/Chest PA and Lateral IMPRESSION: No focal consolidations. Mild pulmonary vascular congestion. Mild cardiomegaly. Reading Location: [facility] CC: PEDRO Bolton; Dr. Amos Floyd MD ~ Corporation Lawyer: Signed [facility]05-21-2025 NoteHNO ID: [id number] Author: ?, ?, ? Service: ? Author Type: LICENSED NURSE Type: Progress Notes Filed: 07/10/2024 09:03 Note Text: Patient presents for Prolia injection. Denies any problems at this time. Patient instructed on any SE of medication, verbalized understanding and agreed to proceed with treatment. Tolerated injection well. Desirae Arzola [facility]04-30-2025 NoteHNO ID: [id number] Author: MARK LEE CPhT Service: ? Author Type: Cathode Ray Tube Assembler Type: Progress Notes Filed: 06/19/2024 15:00 Note Text: Patient is identified through a medication adherence outreach initiative based on pharmacy claims data from: [facility] Medication Adherence Category: Statins First Review Attribution Status: Correct Attribution Medication(s) Simvastatin 20 mg Medication Status per portal/Epic Reconcile Dispense: Filled late - Greater than 7 days after next fill date Date Filled (MM/DD): 06/15/24 due 06/04/24 Day Supply: 90 Medication Status per Profile Review: No issues per profile review Patient appropriate for outreach? No Reason patient not appropriate for outreach:Patient filled on time / no adherence concerns to be addressed Mark Lee CPhT [facility] History of Present illness Narrative* Mark Lee CPhT - 06/19/2024 2:59 PM EDT Patient is identified through a medication adherence outreach initiative based on pharmacy claims data from: [employer] Medication Adherence Category: Statins First Review Attribution Status: Correct Attribution Medication(s) Simvastatin 20 mg Medication Status per portal/Epic Reconcile Dispense: Filled late - Greater than 7 days after next fill date Date Filled (MM/DD): 06/15/24 due 06/04/24 Day Supply: 90 Medication Status per Profile Review: No issues per profile review Patient appropriate for outreach? No Reason patient not appropriate for outreach:Patient filled on time / no adherence concerns to be addressed Mark Lee CPhT [facility] Team documented [facility] NotePatient Outreach (PHPOHE) LINDA PERALTA ([id number]) 1945 F Date Time Provider Department 06/19/24 AMOS FLOYD PHPOHE During your visit today, we recorded the following information about you: Mark Lee CPhT 06/19/2024 3:00 PM Signed Patient is identified through a medication adherence outreach initiative based on pharmacy claims data from: [facility] Medication Adherence Category: Statins First Review Attribution Status: Correct Attribution Medication(s) Simvastatin 20 mg Medication Status per portal/Epic Reconcile Dispense: Filled late - Greater than 7 days after next fill date Date Filled (MM/DD): 06/15/24 due 06/04/24 Day Supply: 90 Medication Status per Profile Review: No issues per profile review Patient appropriate for outreach? No Reason patient not appropriate for outreach:Patient filled on time / no adherence concerns to be addressed Mark Lee CPhT [facility] Team Allergies As of Date: 06/19/2024 Noted Allergy Reaction CIPRO (CIPROFLOXACIN) 07/22/2009 Comments: rash with 500mg dose PENICILLINS 06/17/2002 Comments: rash Date Reviewed: 01/23/2024 Reviewed by: Isha Wright LPN - Fully Assessed Reason for Visit: Allied Health Visit [5] Cmt: Medication Adherence Outreach Prescriptions as of 06/19/2024 - Ascorbic Acid 1,000 mg tablet Take 1,000 mg by mouth daily at bedtime. - lisinopril (ZESTRIL) 5 mg tablet Take 1 tablet by mouth every afternoon. - Methenamine Hippurate (HIPREX) 1 gram tablet Take 1 g by mouth daily at bedtime. - simvastatin (ZOCOR) 20 mg tablet Take 1 tablet by mouth daily at bedtime. - hydrocortisone (CORTEF) 10 mg tablet Take 3 tablets by mouth once daily. As directed per endocrinology. - amLODIPine (NORVASC) 5 mg tablet Take 10 mg by mouth once daily. - pantoprazole DR (PROTONIX) 40 mg tablet Take 1 tablet by mouth daily at 6 am. - nitroglycerin sublingual (NITROQUICK) 0.4 mg SL tablet Dissolve 1 tablet under the tongue every 5 minutes as needed. - warfarin (COUMADIN) 2.5 mg tablet Take 2.5 mg by mouth. 2.5 mg daily except 5 mg on Mondays - acetaminophen (TYLENOL) 325 mg tablet Take 650 mg by mouth every 6 hours as needed. Facility-Administered Medications as of 06/19/2024 - denosumab 60 mg injection (PROLIA) Problem List As Of Date 06/19/2024 Noted Resolved Disorder of autonomic nervous system [G90.9] 10/20/2003 Adrenal hypofunction (HCC) [E27.40] DERMATITIS NOS [L25.9] 07/18/2008 IMPAIRED RENAL FUNCT NOS [N25.9] 04/26/2005 07/18/2008 Benign neoplasm of colon [D12.6] 04/26/2005 01/23/2024 ASTHMA UNSPECIFIED [J45.909] 09/21/2005 07/18/2008 Cystocele, midline [N81.11] 07/23/2007 02/27/2017 Nontoxic multinodular goiter [E04.2] 12/11/2007 09/23/2017 Hypercalcemia [E83.52] 03/19/2009 06/13/2023 DVT of lower extremity (deep venous thrombosis)*03/28/2009 09/05/2011 Right Renal Mass [N28.89] 03/28/2009 08/26/2009 Hypokalemia [E87.6] 04/09/2009 05/14/2009 Other Specified Pre-Operative Examination [Z01.*04/09/2009 05/14/2009 SUMMARY [V999.95] 04/25/2009 08/26/2009 Elevation of Cardiac Enzymes [R74.8] 04/25/2009 08/26/2009 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] 08/26/2009 12/30/2009 CKD (chronic kidney disease) stage 3, GFR 30-59*08/26/2009 09/23/2020 Anemia [D64.9] 08/26/2009 09/09/2012 Chronic diarrhea [K52.9] 03/15/2010 03/03/2011 Collagenous colitis [K52.831] 03/30/2010 03/03/2011 ASHD (arteriosclerotic heart disease) [I25.10] 04/25/2009 DVT (deep venous thrombosis) ([facility]) [I82.409] 03/23/2012 01/23/2024 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 [M85.80] 11/13/2013 06/30/2023 Chronic nonallergic rhinitis [J31.0] 03/20/2014 Pure hypercholesterolemia [E78.00] 02/17/2015 Gallstones [K80.20] 03/06/2016 08/24/2016 Pain of upper abdomen [R10.10] 03/10/2016 02/27/2017 Personal history of colonic polyps [Z86.0100] 03/10/2016 02/27/2017 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] 11/18/2019 Hypertension [I10] 04/14/2020 Generalized muscle weakness [M62.81] 05/27/2020 06/30/2023 Stage 3b chronic kidney disease (HCC) [N18.32] 07/29/2020 Hypertensive kidney disease with stage 3b chron*07/15/2021 Hip pain [M25.559] 11/01/2022 06/30/2023 Age-related osteoporosis with current pathologi*01/19/2023 Closed displaced fracture of fifth metatarsal b*03/22/2023 Gait abnormality [R26.9] 03/28/2023 01/23/2024 Physical deconditioning [R53.81] 05/31/2023 01/23/2024 Weakness [R53.1] 05/31/2023 NSTEMI (non-ST elevated myocardial infarction) *06/09/2023 01/23/2024 Adrenal insufficiency (HCC) [E27.40] 06/12/2023 Nonrheumatic aortic valve stenosis [I35.0] 06/30/2023 Nodule of lower lobe of right lung needing foll*06/08/2023 02/22/2024 History of DVT of lower extremity and coronary *01/23/2024 Thyroid nodule greater than or equal to 1 cm in*02/22/2024 Encounter Status:Closed by SIMON LEE (more content not included)...[facility]04-[facility]25 NoteHNO ID: [id number] Author: MARK LEE CPhT Service: ? Author Type: Cathode Ray Tube Assembler Type: Progress Notes Filed: 06/17/2024 10:08 Note Text: Patient is identified through a medication adherence outreach initiative based on pharmacy claims data from: [employer] Medication Adherence Category: Statins First Review Attribution Status: Correct Attribution Medication(s) Simvastatin 20 mg Medication Status per portal/Epic Reconcile Dispense: Not filled - Outreach patient Medication Status per Profile Review: No issues per profile review Patient appropriate for outreach? Yes Patient identified by name and Outreach to patient: Left Voicemail/message for return call What was primary intervention? No intervention Mark Lee CPhT [facility] NotePatient Outreach (PHPOHE) LINDA PERALTA ([id number]) 1945 F Date Time Provider Department 06/17/24 AMOS FLOYD PHPOHE During your visit today, we recorded the following information about you: Mark Lee CPhT 06/17/2024 10:08 AM Signed Patient is identified through a medication adherence outreach initiative based on pharmacy claims data from: [employer] Medication Adherence Category: Statins First Review Attribution Status: Correct Attribution Medication(s) Simvastatin 20 mg Medication Status per portal/Epic Reconcile Dispense: Not filled - Outreach patient Medication Status per Profile Review: No issues per profile review Patient appropriate for outreach? Yes Patient identified by name and Outreach to patient: Left Voicemail/message for return call What was primary intervention? No intervention Mark Lee CPhT [facility] Team Allergies As of Date: 06/17/2024 Noted Allergy Reaction CIPRO (CIPROFLOXACIN) 07/22/2009 Comments: rash with 500mg dose PENICILLINS 06/17/2002 Comments: rash Date Reviewed: 01/23/2024 Reviewed by: Isha Wright LPN - Fully Assessed Reason for Visit: Allied Health Visit [5] Cmt: Medication Adherence Outreach Prescriptions as of 06/17/2024 - Ascorbic Acid 1,000 mg tablet Take 1,000 mg by mouth daily at bedtime. - lisinopril (ZESTRIL) 5 mg tablet Take 1 tablet by mouth every afternoon. - Methenamine Hippurate (HIPREX) 1 gram tablet Take 1 g by mouth daily at bedtime. - simvastatin (ZOCOR) 20 mg tablet Take 1 tablet by mouth daily at bedtime. - hydrocortisone (CORTEF) 10 mg tablet Take 3 tablets by mouth once daily. As directed per endocrinology. - amLODIPine (NORVASC) 5 mg tablet Take 10 mg by mouth once daily. - pantoprazole DR (PROTONIX) 40 mg tablet Take 1 tablet by mouth daily at 6 am. - nitroglycerin sublingual (NITROQUICK) 0.4 mg SL tablet Dissolve 1 tablet under the tongue every 5 minutes as needed. - warfarin (COUMADIN) 2.5 mg tablet Take 2.5 mg by mouth. 2.5 mg daily except 5 mg on Mondays - acetaminophen (TYLENOL) 325 mg tablet Take 650 mg by mouth every 6 hours as needed. Facility-Administered Medications as of 06/17/2024 - denosumab 60 mg injection (PROLIA) Problem List As Of Date 06/17/2024 Noted Resolved Disorder of autonomic nervous system [G90.9] 10/20/2003 Adrenal hypofunction (HCC) [E27.40] DERMATITIS NOS [L25.9] 07/18/2008 IMPAIRED RENAL FUNCT NOS [N25.9] 04/26/2005 07/18/2008 Benign neoplasm of colon [D12.6] 04/26/2005 01/23/2024 ASTHMA UNSPECIFIED [J45.909] 09/21/2005 07/18/2008 Cystocele, midline [N81.11] 07/23/2007 02/27/2017 Nontoxic multinodular goiter [E04.2] 12/11/2007 09/23/2017 Hypercalcemia [E83.52] 03/19/2009 06/13/2023 DVT of lower extremity (deep venous thrombosis)*03/28/2009 09/05/2011 Right Renal Mass [N28.89] 03/28/2009 08/26/2009 Hypokalemia [E87.6] 04/09/2009 05/14/2009 Other Specified Pre-Operative Examination [Z01.*04/09/2009 05/14/2009 SUMMARY [V999.95] 04/25/2009 08/26/2009 Elevation of Cardiac Enzymes [R74.8] 04/25/2009 08/26/2009 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] 08/26/2009 12/30/2009 CKD (chronic kidney disease) stage 3, GFR 30-59*08/26/2009 09/23/2020 Anemia [D64.9] 08/26/2009 09/09/2012 Chronic diarrhea [K52.9] 03/15/2010 03/03/2011 Collagenous colitis [K52.831] 03/30/2010 03/03/2011 ASHD (arteriosclerotic heart disease) [I25.10] 04/25/2009 DVT (deep venous thrombosis) (HCC) [I82.409] 03/23/2012 01/23/2024 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 [M85.80] 11/13/2013 06/30/2023 Chronic nonallergic rhinitis [J31.0] 03/20/2014 Pure hypercholesterolemia [E78.00] 02/17/2015 Gallstones [K80.20] 03/06/2016 08/24/2016 Pain of upper abdomen [R10.10] 03/10/2016 02/27/2017 Personal history of colonic polyps [Z86.0100] 03/10/2016 02/27/2017 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] 11/18/2019 Hypertension [I10] 04/14/2020 Generalized muscle weakness [M62.81] 05/27/2020 06/30/2023 Stage 3b chronic kidney disease (HCC) [N18.32] 07/29/2020 Hypertensive kidney disease with stage 3b chron*07/15/2021 Hip pain [M25.559] 11/01/2022 06/30/2023 Age-related osteoporosis with current pathologi*01/19/2023 Closed displaced fracture of fifth metatarsal b*03/22/2023 Gait abnormality [R26.9] 03/28/2023 01/23/2024 Physical deconditioning [R53.81] 05/31/2023 01/23/2024 Weakness [R53.1] 05/31/2023 NSTEMI (non-ST elevated myocardial infarction) *06/09/2023 01/23/2024 Adrenal insufficiency (HCC) [E27.40] 06/12/2023 Nonrheumatic aortic valve stenosis [I35.0] 06/30/2023 Nodule of lower lobe of right lung needing foll*06/08/2023 02/22/2024 History of DVT of lower extremity and coronary *01/23/2024 Thyroid nodule greater than or equal to 1 cm in*02/22/2024 Encounter Status:Closed by MARK LEE on 06/17/24[facility] NoteHNO ID: [id number] Author: NAKIA BURK CPhT Service: ? Author Type: Cathode Ray Tube Assembler Type: Progress Notes Filed: 05/14/2024 14:05 Note Text: Patient is identified through a medication adherence outreach initiative based on pharmacy claims data from: [facility] Medication Adherence Category: Hypertension First Review Attribution Status: Correct Attribution Medication(s) Lisinopril 5 mg Medication Status per portal/Epic Reconcile Dispense: Filled on time - On or before next fill date Date Filled (MM/DD): 05/09 Day Supply: 30 Medication Status per Profile Review: No issues per profile review Patient appropriate for outreach? No Reason patient not appropriate for outreach:Patient filled on time / no adherence concerns to be addressed Nakia Burk CPhT [facility] History of Present illness Narrative* Nakia Burk CPhT - 05/14/2024 2:04 PM EDT Patient is identified through a medication adherence outreach initiative based on pharmacy claims data from: [employer] Medication Adherence Category: Hypertension First Review Attribution Status: Correct Attribution Medication(s) Lisinopril 5 mg Medication Status per portal/Epic Reconcile Dispense: Filled on time - On or before next fill date Date Filled (MM/DD): 05/09 Day Supply: 30 Medication Status per Profile Review: No issues per profile review Patient appropriate for outreach? No Reason patient not appropriate for outreach:Patient filled on time / no adherence concerns to be addressed Nakia Burk CPhT [facility] Pharmacy Team [facility] NotePatient Outreach (PHPOHE) LINDA PERALTA ([id number]) 1945 F Date Time Provider Department 05/14/24 AMOS FLOYD PHPOHE During your visit today, we recorded the following information about you: Nakia Burk CPhT 05/14/2024 2:05 PM Signed Patient is identified through a medication adherence outreach initiative based on pharmacy claims data from: [employer] Medication Adherence Category: Hypertension First Review Attribution Status: Correct Attribution Medication(s) Lisinopril 5 mg Medication Status per portal/Epic Reconcile Dispense: Filled on time - On or before next fill date Date Filled (MM/DD): 05/09 Day Supply: 30 Medication Status per Profile Review: No issues per profile review Patient appropriate for outreach? No Reason patient not appropriate for outreach:Patient filled on time / no adherence concerns to be addressed Nakia Burk CPhT [facility] Pharmacy Team Allergies As of Date: 05/14/2024 Noted Allergy Reaction CIPRO (CIPROFLOXACIN) 07/22/2009 Comments: rash with 500mg dose PENICILLINS 06/17/2002 Comments: rash Date Reviewed: 01/23/2024 Reviewed by: Isha Wright LPN - Fully Assessed Reason for Visit: Allied Health Visit [5] Cmt: Medication Adherence Outreach Prescriptions as of 05/14/2024 - Ascorbic Acid 1,000 mg tablet Take 1,000 mg by mouth daily at bedtime. - lisinopril (ZESTRIL) 5 mg tablet Take 1 tablet by mouth every afternoon. - Methenamine Hippurate (HIPREX) 1 gram tablet Take 1 g by mouth daily at bedtime. - simvastatin (ZOCOR) 20 mg tablet Take 1 tablet by mouth daily at bedtime. - hydrocortisone (CORTEF) 10 mg tablet Take 3 tablets by mouth once daily. As directed per endocrinology. - amLODIPine (NORVASC) 5 mg tablet Take 10 mg by mouth once daily. - pantoprazole DR (PROTONIX) 40 mg tablet Take 1 tablet by mouth daily at 6 am. - nitroglycerin sublingual (NITROQUICK) 0.4 mg SL tablet Dissolve 1 tablet under the tongue every 5 minutes as needed. - warfarin (COUMADIN) 2.5 mg tablet Take 2.5 mg by mouth. 2.5 mg daily except 5 mg on Mondays - acetaminophen (TYLENOL) 325 mg tablet Take 650 mg by mouth every 6 hours as needed. Facility-Administered Medications as of 05/14/2024 - denosumab 60 mg injection (PROLIA) Problem List As Of Date 05/14/2024 Noted Resolved Disorder of autonomic nervous system [G90.9] 10/20/2003 Adrenal hypofunction (HCC) [E27.40] DERMATITIS NOS [L25.9] 07/18/2008 IMPAIRED RENAL FUNCT NOS [N25.9] 04/26/2005 07/18/2008 Benign neoplasm of colon [D12.6] 04/26/2005 01/23/2024 ASTHMA UNSPECIFIED [J45.909] 09/21/2005 07/18/2008 Cystocele, midline [N81.11] 07/23/2007 02/27/2017 Nontoxic multinodular goiter [E04.2] 12/11/2007 09/23/2017 Hypercalcemia [E83.52] 03/19/2009 06/13/2023 DVT of lower extremity (deep venous thrombosis)*03/28/2009 09/05/2011 Right Renal Mass [N28.89] 03/28/2009 08/26/2009 Hypokalemia [E87.6] 04/09/2009 05/14/2009 Other Specified Pre-Operative Examination [Z01.*04/09/2009 05/14/2009 SUMMARY [V999.95] 04/25/2009 08/26/2009 Elevation of Cardiac Enzymes [R74.8] 04/25/2009 08/26/2009 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] 08/26/2009 12/30/2009 CKD (chronic kidney disease) stage 3, GFR 30-59*08/26/2009 09/23/2020 Anemia [D64.9] 08/26/2009 09/09/2012 Chronic diarrhea [K52.9] 03/15/2010 03/03/2011 Collagenous colitis [K52.831] 03/30/2010 03/03/2011 ASHD (arteriosclerotic heart disease) [I25.10] 04/25/2009 DVT (deep venous thrombosis) ([facility]) [I82.409] 03/23/2012 01/23/2024 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 [M85.80] 11/13/2013 06/30/2023 Chronic nonallergic rhinitis [J31.0] 03/20/2014 Pure hypercholesterolemia [E78.00] 02/17/2015 Gallstones [K80.20] 03/06/2016 08/24/2016 Pain of upper abdomen [R10.10] 03/10/2016 02/27/2017 Personal history of colonic polyps [Z86.0100] 03/10/2016 02/27/2017 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] 11/18/2019 Hypertension [I10] 04/14/2020 Generalized muscle weakness [M62.81] 05/27/2020 06/30/2023 Stage 3b chronic kidney disease (HCC) [N18.32] 07/29/2020 Hypertensive kidney disease with stage 3b chron*07/15/2021 Hip pain [M25.559] 11/01/2022 06/30/2023 Age-related osteoporosis with current pathologi*01/19/2023 Closed displaced fracture of fifth metatarsal b*03/22/2023 Gait abnormality [R26.9] 03/28/2023 01/23/2024 Physical deconditioning [R53.81] 05/31/2023 01/23/2024 Weakness [R53.1] 05/31/2023 NSTEMI (non-ST elevated myocardial infarction) *06/09/2023 01/23/2024 Adrenal insufficiency (HCC) [E27.40] 06/12/2023 Nonrheumatic aortic valve stenosis [I35.0] 06/30/2023 Nodule of lower lobe of right lung needing foll*06/08/2023 02/22/2024 History of DVT of lower extremity and coronary *01/23/2024 Thyroid nodule greater than or equal to 1 cm in*02/22/2024 Encounter Status:Closed by NAKIA BURK on 05/14/24[facility] Evaluation note* Diagnosis Onset Date Resolution Status Admit Date Aortic stenosis acute April 10:53am 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, 2024 10:53am MVP (mitral valve prolapse) acute April 29, 2024 10:53am 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, stage 3 lunchroom aide mg April 29, 2024 10:53am Essential (primary) hypertension chronic April 29, 2024 10:53am Hyperlipidemia chronic April 10:53am History of non-ST elevation myocardial infarction (NSTEMI) April, resolved M [facility] 2024 10:53am [facility] Work Phone: 1(235) 321-193503-10-2025 Evaluation note* Diagnosis Onset Date Resolution Status Admit Date Aortic stenosis acute April 10:53am detention (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 acute April 29, 2024 10:53am MVP (mitral valve prolapse) acute April 29, 2024 10:53am 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, stage 3 lunchroom aide mg April 29, 2024 10:53am Essential (primary) hypertension chronic April 29, 2024 10:53am Hyperlipidemia chronic April 10:53am History of non-ST elevation myocardial infarction (NSTEMI) April, resolved M [facility] 2024 10:53am Severe aortic stenosis acute 2024 8:33am [facility] Work Phone: 1(497) 666-129003-10-2025 Evaluation note* Diagnosis Onset Date Resolution Status Admit Date Aortic stenosis 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 10:53am 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, 2024 10:53am MVP (mitral valve prolapse) acute April 29, 2024 10:53am 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, stage 3 lunchroom aide mg April 29, 2024 10:53am Essential (primary) hypertension chronic April 29, 2024 10:53am Hyperlipidemia chronic April 10:53am History of non-ST elevation myocardial infarction (NSTEMI) April, resolved M arch 2024 10:53am Aortic stenosis acute July 23, 2024 8:33am 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 July 23, 2024 8 :33am MVP (mitral valve prolapse) acute July 23, 2024 8:33am 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, stage 3 lunchroom aide mg July 23, 2024 8:33am Essential (primary) hypertension chronic July 23, 2024 8 :33am Hyperlipidemia chronic July 23, 2024 8:33am History of non-ST elevation myocardial infarction (NSTEMI) April, resolved J [facility] 2024 8:33am [facility] Work Phone: 1(125) 538-147103-10-2025 Evaluation note* Diagnosis Onset Date Resolution Status Admit Date Aortic stenosis acute April 10:53am detention (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 acute April 29, 2024 10:53am MVP (mitral valve prolapse) acute April 29, 2024 10:53am 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, stage 3 lunchroom aide mg April 29, 2024 10:53am Essential (primary) hypertension chronic April 29, 2024 10:53am Hyperlipidemia chronic April 10:53am History of non-ST elevation myocardial infarction (NSTEMI) April, resolved M arch 2024 10:53am Aortic stenosis acute July 23, 2024 8:33am 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 July 23, 2024 8 :33am MVP (mitral valve prolapse) acute July 23, 2024 8:33am 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, stage 3 lunchroom aide mg July 23, 2024 8:33am Essential (primary) hypertension chronic July 23, 2024 8 :33am Hyperlipidemia chronic July 23, 2024 8:33am History of non-ST elevation myocardial infarction (NSTEMI) April, resolved J une 2024 8:33am Acute cystitis without hematuria acute August 07, 2024 8:16pm Acute hypotension acute August 072024 8:16pm [place] disease acute August 072024 8:16pm Aortic stenosis acute July 8:16pm Aortic stenosis, severe acute J 2024 8:16pm Complicated urinary tract infection acute August 07, 2024 8:16pm Dark stools acute August 07 8:16pm Dehydration acute August 07 8:16pm Elevated troponin acute August 072024 8:16pm Leukocytosis acute August 07, 025 8:16pm detention (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 acute August 07, 2024 8:16pm Metabolic acidosis acute July 212024 8:16pm MVP (mitral valve prolapse) acute August 07, 2024 8:16pm Overweight (BMI 25.0-29.9) acute August 07, 2024 8:16pm Sepsis acute August 07 8:16pm 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, stage 3 lunchroom aide mg August 07, 2024 8:16pm [facility] Work Phone: 1(330) 740-238702-14-2025 NoteHNO ID: [id number] Author: DEL SARAVIA MA Service: ? Author Type: Corporation Lawyer Type: Progress Notes Filed: 04/05/2024 15:22 Note Text: POPULATION HEALTH NAVIGATION OUTREACH Action/FYI - [employer] High Risk - 1st attempt Next office visit: 07/24/24 - 6 mo follow up Last AWV; 01/23/24 No Health Maintenance Voicemail message left and Symonicshart message sent offering to assist in scheduling AWV in January 2025. Reason for Outreach Care Gap/HCC or Scheduling Wellness Visits Care Gaps due: Medicare Annual Wellness Visit Patient Contacted: Unable or unnecessary to reach patient: Left message MyChart message sent Navigation Signature: Del Saravia MA April 05, 2024 3:11 [facility]02-14-2025 History of Present illness Narrative* Del Saravia MA - 04/05/2024 3:11 PM EST POPULATION HEALTH NAVIGATION OUTREACH Action/FYI - [employer] High Risk - 1st attempt Next office visit: 07/24/24 - 6 mo follow up Last AWV; 01/23/24 No Health Maintenance Voicemail message left and Mychart message sent offering to assist in scheduling AWV in January 2025. Reason for Outreach Care Gap/HCC or Scheduling Wellness Visits Care Gaps due: Medicare Annual Wellness Visit Patient Contacted: Unable or unnecessary to reach patient: Left message MyChart message sent Navigation Signature: Del Saravia MA April 05, 2024 3:11 PM [facility] NotePatient Outreach (NETNAV) LINDA PERALTA ([id number]) 1945 F Date Time Provider Department 04/05/24 DEL SARAVIA During your visit today, we recorded the following information about you: Del Saravia MA 04/05/2024 3:22 PM Signed POPULATION HEALTH NAVIGATION OUTREACH Action/FYI - [employer] High Risk - 1st attempt Next office visit: 07/24/24 - 6 mo follow up Last AWV; 01/23/24 No Health Maintenance Voicemail message left and Mychart message sent offering to assist in scheduling AWV in January 2025. Reason for Outreach Care Gap/HCC or Scheduling Wellness Visits Care Gaps due: Medicare Annual Wellness Visit Patient Contacted: Unable or unnecessary to reach patient: Left message MyChart message sent Navigation Signature: Dle Saravia MA April 05, 2024 3:11 PM Allergies As of Date: 04/05/2024 Noted Allergy Reaction CIPRO (CIPROFLOXACIN) 07/22/2009 Comments: rash with 500mg dose PENICILLINS 06/17/2002 Comments: rash Date Reviewed: 01/23/2024 Reviewed by: Isha Wright LPN - Fully Assessed Reason for Visit: Population Health Navigation Outreach [3910] Cmt: [employer] High Risk - 1st attempt Prescriptions as of 04/05/2024 - Ascorbic Acid 1,000 mg tablet Take 1,000 mg by mouth daily at bedtime. - lisinopril (ZESTRIL) 5 mg tablet Take 1 tablet by mouth every afternoon. - Methenamine Hippurate (HIPREX) 1 gram tablet Take 1 g by mouth daily at bedtime. - simvastatin (ZOCOR) 20 mg tablet Take 1 tablet by mouth daily at bedtime. - hydrocortisone (CORTEF) 10 mg tablet Take 3 tablets by mouth once daily. As directed per endocrinology. - amLODIPine (NORVASC) 5 mg tablet Take 10 mg by mouth once daily. - pantoprazole DR (PROTONIX) 40 mg tablet Take 1 tablet by mouth daily at 6 am. - nitroglycerin sublingual (NITROQUICK) 0.4 mg SL tablet Dissolve 1 tablet under the tongue every 5 minutes as needed. - warfarin (COUMADIN) 2.5 mg tablet Take 2.5 mg by mouth. 2.5 mg daily except 5 mg on Mondays - acetaminophen (TYLENOL) 325 mg tablet Take 650 mg by mouth every 6 hours as needed. Facility-Administered Medications as of 04/05/2024 - denosumab 60 mg injection (PROLIA) Problem List As Of Date 04/05/2024 Noted Resolved Disorder of autonomic nervous system [G90.9] 10/20/2003 Adrenal hypofunction (HCC) [E27.40] DERMATITIS NOS [L25.9] 07/18/2008 IMPAIRED RENAL FUNCT NOS [N25.9] 04/26/2005 07/18/2008 Benign neoplasm of colon [D12.6] 04/26/2005 01/23/2024 ASTHMA UNSPECIFIED [J45.909] 09/21/2005 07/18/2008 Cystocele, midline [N81.11] 07/23/2007 02/27/2017 Nontoxic multinodular goiter [E04.2] 12/11/2007 09/23/2017 Hypercalcemia [E83.52] 03/19/2009 06/13/2023 DVT of lower extremity (deep venous thrombosis)*03/28/2009 09/05/2011 Right Renal Mass [N28.89] 03/28/2009 08/26/2009 Hypokalemia [E87.6] 04/09/2009 05/14/2009 Other Specified Pre-Operative Examination [Z01.*04/09/2009 05/14/2009 SUMMARY [V999.95] 04/25/2009 08/26/2009 Elevation of Cardiac Enzymes [R74.8] 04/25/2009 08/26/2009 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] 08/26/2009 12/30/2009 CKD (chronic kidney disease) stage 3, GFR 30-59*08/26/2009 09/23/2020 Anemia [D64.9] 08/26/2009 09/09/2012 Chronic diarrhea [K52.9] 03/15/2010 03/03/2011 Collagenous colitis [K52.831] 03/30/2010 03/03/2011 ASHD (arteriosclerotic heart disease) [I25.10] 04/25/2009 DVT (deep venous thrombosis) ([facility]) [I82.409] 03/23/2012 01/23/2024 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 [M85.80] 11/13/2013 06/30/2023 Chronic nonallergic rhinitis [J31.0] 03/20/2014 Pure hypercholesterolemia [E78.00] 02/17/2015 Gallstones [K80.20] 03/06/2016 08/24/2016 Pain of upper abdomen [R10.10] 03/10/2016 02/27/2017 Personal history of colonic polyps [Z86.0100] 03/10/2016 02/27/2017 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] 11/18/2019 Hypertension [I10] 04/14/2020 Generalized muscle weakness [M62.81] 05/27/2020 06/30/2023 Stage 3b chronic kidney disease (HCC) [N18.32] 07/29/2020 Hypertensive kidney disease with stage 3b chron*07/15/2021 Hip pain [M25.559] 11/01/2022 06/30/2023 Age-related osteoporosis with current pathologi*01/19/2023 Closed displaced fracture of fifth metatarsal b*03/22/2023 Gait abnormality [R26.9] 03/28/2023 01/23/2024 Physical deconditioning [R53.81] 05/31/2023 01/23/2024 Weakness [R53.1] 05/31/2023 NSTEMI (non-ST elevated myocardial infarction) *06/09/2023 01/23/2024 Adrenal insufficiency (HCC) [E27.40] 06/12/2023 Nonrheumatic aortic valve stenosis [I35.0] 06/30/2023 Nodule of lower lobe of right lung needing foll*06/08/2023 02/22/2024 History of DVT of lower extremity and coronary *01/23/2024 Thyroid nodule greater than or equal to 1 cm in*02/22/2024 Encounter Status:Closed by DEL SARAVIA on 04/05/24[facility] 02-22-2024 Telephone encounter Note* Telephone Encounter - Carlos Roe RN - 02/22/2024 9:13 AM EST Pt called and is notified of results and given providers message. Pt voices understanding. 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 She sees him for her [place]'s disease. Will fax this msg and CT scan report to his office. [facility]01-[facility] Miscellaneous Notes* Telephone Encounter - Carlos Roe RN - 02/22/2024 9:13 AM EST Pt called and is notified of results and given providers message. Pt voices understanding. 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 She sees him for her [place] disease. Will fax this msg and CT scan report to his office. * Telephone Encounter - Carlos Roe RN - 02/22/2024 9:09 AM EST ----- Message from Amos Floyd MD sent at 02/22/2024 12:42 AM EST ----- Nodule on chest xray is a healed rib fracture. What needs follow up is a 1.1 cm nodule of her rightthyroid. 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 documented in this [facility]01-[facility]25 Telephone encounter Note * Telephone Encounter - Carlos Roe RN - 02/22/2024 9:09 AM EST ----- Message from Amos Floyd MD sent at 02/22/2024 12:42 AM EST ----- Nodule on chest xray is a healed rib fracture. What needs follow up is a 1.1 cm nodule of her rightthyroid. 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 [facility]12-12-[facility] History of Present illness Narrative* Gisela Baird CT - 02/01/2024 10:40 AM EST Radiology Service Progress Note PATIENT NAME: Linda Peralta DATE OF SERVICE: February 01, 2024 TIME: 11:10 AM PATIENT IDENTITY VERIFICATION COMPLETED USING TWO (2) IDENTIFIERS: Name and Date of confirmedby patient verbally. FALL SCREENING: Has the patient had 2 falls in the last year or 1 fall with injury or currently using an Ambulatory Assistive Device (Walker, Cane, Wheelchair, Crutches, etc.)? No PATIENT GENDER DATA: Female. status: : No status: NO. 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 RADIOLOGY DEPARTMENT: CT; Exam(s) Completed: Chest PERIPHERAL IV DATA: Not applicable SIGNED BY: JOESPH Higgins February 01, 2024 11:10 AM documented in this encounterRivers[facility]12-12-2024 NoteHNO ID: [id number] Author: GISELA BAIRD CT Service: Radiology Author Type: Manager Mining Type: Progress Notes Filed: 02/01/2024 11:10 Note Text: Radiology Service Progress Note PATIENT NAME: Linda Peralta DATE OF SERVICE: February 01, 2024 TIME: 11:10 AM PATIENT IDENTITY VERIFICATION COMPLETED USING TWO (2) IDENTIFIERS: Name and Date of confirmed by patient verbally. FALL SCREENING: Has the patient had 2 falls in the last year or 1 fall with injury or currently using an Ambulatory Assistive Device (Walker, Cane, Wheelchair, Crutches, etc.)? No PATIENT GENDER DATA: Female. status: : No status: NO. 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 RADIOLOGY DEPARTMENT: CT; Exam(s) Completed: Chest PERIPHERAL IV DATA: Not applicable SIGNED BY: JOESPH Higgins February 01, 2024 11:10 [facility]12-03-2024 Instructions* Patient Instructions* Amos Flody MD - 01/23/2024 10:50 AM EST Screening schedule The following prevention plan is recommended: Bone Density Screening due on 10/08/2021 Influenza Vaccine(1) due on 10/22/2023 Covid-19 Vaccine( season) due on 10/22/2023 LDL Cholesterol due on 01/19/2024 WHAT YOU CAN DO TO PREVENT FALLS Many falls can be prevented. By making some changes, you can lower your chances of falling. Four things YOU can do to prevent falls for you* and your caregiver 1. Begin a regular exercise program Exercise is one of the most important ways to lower your chances of falling. It makes you stronger and helps you feel better. Exercises that improve balance and coordination (like Dustin Chi) are the most helpful. Lack of exercise leads to weakness and increases your chances of falling. Ask your doctor or health care provider about the best type of exercise program for you. 2. Have your health care provider review your medicines Have your doctor or pharmacist review all the medicines you take, even [id number] medicines. As you get older, the way medicines work in your body can change. Some medicines, or combinations of medicines, can make you sleepy or dizzy andcan cause you to fall. 3. Have your vision checked Have your eyes checked by an eye doctor at least once a year. You may be wearing the wrong glasses or have a condition like glaucoma or cataracts that limits your vision. Poor vision can increase your chances of falling. 4. Make your home safer About half of all falls happen at home. To make your home safer: Remove things you can trip over (like papers, books, clothes, and shoes) from stairs and places where you walk. Remove small throw rugs or use double-sided tape to keep the rugs from slipping. Keep items you use often in cabinets you can reach easily without using a step stool. Have grab bars put in next to your toilet and in the tub or shower. Use non-slip mats in the bathtub and on shower floors. Improve the lighting in your home. As you get older, you need brighter lights to see well. Hang light-weight curtains or shades to reduce glare. Have handrails and lights put in on all staircases. Wear shoes both inside and outside the house. Avoid going barefoot or wearing slippers. For more information, contact: Centers for Disease Control and Prevention www.cdc.gov/injury * This information may not apply if you have certain medical conditions. documented in this encounterR[facility]12-03-2024 NoteHNO ID: [id number] Author: AMOS FLOYD MD Service: ? Author Type: Physician Type: Progress Notes Filed: 01/23/2024 14:09 Note Text: This note was created using [employer]. Subjective Linda Peralta is a 78 year old female. She was doing well at this time. Her hypertension, hypercalcemia, hypercholesterolemia, arteriosclerotic heart disease, and CKD were stable. She had an incidental right lung nodule that was in need of follow up. Review of Systems Constitutional: Negative for activity change, fatigue and fever. Respiratory: Negative for cough, chest tightness and shortness of breath. Cardiovascular: Negative for chest pain, palpitations and leg swelling. Gastrointestinal: Negative for constipation, diarrhea, nausea and vomiting. Genitourinary: Negative for difficulty urinating and dysuria. Musculoskeletal: Negative for arthralgias. Neurological: Negative for dizziness and headaches. 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 Social History Tobacco Use Smoking status: Never Smokeless tobacco: Never Vaping Use Vaping status: Never Used Substance Use Topics Alcohol use: No Drug use: No Current Outpatient Medications Medication Sig Ascorbic Acid 1,000 mg tablet Take 1,000 mg by mouth daily at bedtime. lisinopril (ZESTRIL) 5 mg tablet Take 1 tablet by mouth every afternoon. Methenamine Hippurate (HIPREX) 1 gram tablet Take 1 g by mouth daily at bedtime. simvastatin (ZOCOR) 20 mg tablet Take 1 tablet by mouth daily at bedtime. hydrocortisone (CORTEF) 10 mg tablet Take 3 tablets by mouth once daily. As directed per endocrinology. amLODIPine (NORVASC) 5 mg tablet Take 10 mg by mouth once daily. nitroglycerin sublingual (NITROQUICK) 0.4 mg SL tablet Dissolve 1 tablet under the tongue every 5 minutes as needed. warfarin (COUMADIN) 2.5 mg tablet Take 2.5 mg by mouth. 2.5 mg daily except 5 mg on Mondays acetaminophen (TYLENOL) 325 mg tablet Take 650 mg by mouth every 6 hours as needed. pantoprazole DR (PROTONIX) 40 mg tablet Take 1 tablet by mouth daily at 6 am. Current Facility-Administered Medications Medication Dose Route Frequency denosumab 60 mg injection (PROLIA) 60 mg SUBCUTANEOUS Q 6 MONTH Objective BP 128/76 (BP Site: Left Arm, BP Position: Sitting, BP Cuff Size: Large Adult) Pulse 88 Temp 36.4 ?C (97.5 ?F) (Temporal) Resp 16 Ht 157.5 cm (5' 2) Wt 64.5 kg (142 lb 3.2 oz) BMI 26.01 kg/m? Physical Exam Constitutional: Appearance: Normal appearance. HENT: Head: Normocephalic. Eyes: Conjunctiva/sclera: Conjunctivae normal. Cardiovascular: Rate and Rhythm: Normal rate and regular rhythm. Heart sounds: S1 normal and S2 normal. Murmur heard. Systolic murmur is present with a grade of 1/6. Pulmonary: Effort: No respiratory distress. Breath sounds: No wheezing, rhonchi or rales. Abdominal: General: There is no distension. Palpations: Abdomen is soft. Tenderness: There is no abdominal tenderness. Musculoskeletal: Right lower leg: No edema. Left lower leg: No edema. Lymphadenopathy: Cervical: No cervical adenopathy. Neurological: General: No focal deficit present. Mental Status: She is alert and oriented to person, place, and time. Gait: Gait normal. Psychiatric: Mood and Affect: Mood normal. Assessment and Plan 1. Medicare annual wellness visit, subsequent - ICD9: V70.0, ICD10: Z00.00 (primary diagnosis) - see wellness visit. 2. Encounter for immunization - ICD9: V03.89, ICD10: Z23 - [employer] COVID-19 VACCINE AGE 12+ YR (COMIRNATY) - INFLUENZA VACCINE, PRSV FREE, AGE 65+ YR, HIGH DOSE, TRIVALENT (FLUZONE HIGH-DOSE) 3. Need for influenza vaccination - ICD9: V04.81, ICD10: Z23 - INFLUENZA VACCINE, PRSV FREE, AGE 65+ YR, HIGH DOSE, TRIVALENT (FLUZONE HIGH-DOSE) 4. Screening for depression - ICD9: V79.0, ICD10: Z13.31 - DEPRESSION SCREENING 5. Encounter for screening examination for other mental health and behavioral disorders - ICD9: V79.8, ICD10: Z13.39 - ANXIETY SCREENING 6. Primary hypertension - ICD9: 401.9, ICD10: I10 - Controlled - Continue current medications 7. Stage 3b chronic kidney disease (HCC) - ICD9: 585.3, ICD10: N18.32 - eGFR: 39 Stable - Couns (more content not included)...[facility]12-03-[facility] History of Present illness Narrative* Amos Floyd MD - 01/23/2024 10:34 AM EST This note was created using [employer]. Subjective Linda Peralta is a 78 year old female. She was doing well at this time. Her hypertension, hypercalcemia, hypercholesterolemia, arteriosclerotic heart disease, and CKD were stable. She had an incidental right lung nodule that was in need of follow up. Review of Systems Constitutional: Negative for activity change, fatigue and fever. Respiratory: Negative for cough, chest tightness and shortness of breath. Cardiovascular: Negative for chest pain, palpitations and leg swelling. Gastrointestinal: Negative for constipation, diarrhea, nausea and vomiting. Genitourinary: Negative for difficulty urinating and dysuria. Musculoskeletal: Negative for arthralgias. Neurological: Negative for dizziness and headaches. 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 Social History Tobacco Use Smoking status: Never Smokeless tobacco: Never Vaping Use Vaping status: Never Used Substance Use Topics Alcohol use: No Drug use: No Current Outpatient Medications Medication Sig Ascorbic Acid 1,000 mg tablet Take 1,000 mg by mouth daily at bedtime. lisinopril (ZESTRIL) 5 mg tablet Take 1 tablet by mouth every afternoon. Methenamine Hippurate (HIPREX) 1 gram tablet Take 1 g by mouth daily at bedtime. simvastatin (ZOCOR) 20 mg tablet Take 1 tablet by mouth daily at bedtime. hydrocortisone (CORTEF) 10 mg tablet Take 3 tablets by mouth once daily. As directed per endocrinology. amLODIPine (NORVASC) 5 mg tablet Take 10 mg by mouth once daily. nitroglycerin sublingual (NITROQUICK) 0.4 mg SL tablet Dissolve 1 tablet under the tongue every 5 minutes as needed. warfarin (COUMADIN) 2.5 mg tablet Take 2.5 mg by mouth. 2.5 mg daily except 5 mg on Mondays acetaminophen (TYLENOL) 325 mg tablet Take 650 mg by mouth every 6 hours as needed. pantoprazole DR (PROTONIX) 40 mg tablet Take 1 tablet by mouth daily at 6 am. Current Facility-Administered Medications Medication Dose Route Frequency denosumab 60 mg injection (PROLIA) 60 mg SUBCUTANEOUS Q 6 MONTH Objective BP 128/76 (BP Site: Left Arm, BP Position: Sitting, BP Cuff Size: Large Adult) Pulse 88 Temp 36.4 C (97.5 F) (Temporal) Resp 16 Ht 157.5 cm (5' 2) Wt 64.5 kg (142 lb 3.2 oz) BMI 26.01 kg/m Physical Exam Constitutional: Appearance: Normal appearance. HENT: Head: Normocephalic. Eyes: Conjunctiva/sclera: Conjunctivae normal. Cardiovascular: Rate and Rhythm: Normal rate and regular rhythm. Heart sounds: S1 normal and S2 normal. Murmur heard. Systolic murmur is present with a grade of 1/6. Pulmonary: Effort: No respiratory distress. Breath sounds: No wheezing, rhonchi or rales. Abdominal: General: There is no distension. Palpations: Abdomen is soft. Tenderness: There is no abdominal tenderness. Musculoskeletal: Right lower leg: No edema. Left lower leg: No edema. Lymphadenopathy: Cervical: No cervical adenopathy. Neurological: General: No focal deficit present. Mental Status: She is alert and oriented to person, place, and time. Gait: Gait normal. Psychiatric: Mood and Affect: Mood normal. Assessment and Plan 1. Medicare annual wellness visit, subsequent - ICD9: V70.0, ICD10: Z00.00 (primary diagnosis) - see wellness visit. 2. Encounter for immunization - ICD9: V03.89, ICD10: Z23 - [employer] COVID-19 VACCINE AGE 12+ YR (COMIRNATY) - INFLUENZA VACCINE, PRSV FREE, AGE 65+ YR, HIGH DOSE, TRIVALENT (FLUZONE HIGH-DOSE) 3. Need for influenza vaccination - ICD9: V04.81, ICD10: Z23 - INFLUENZA VACCINE, PRSV FREE, AGE 65+ YR, HIGH DOSE, TRIVALENT (FLUZONE HIGH-DOSE) 4. Screening for depression - ICD9: V79.0, ICD10: Z13.31 - DEPRESSION SCREENING 5. Encounter for screening examination for other mental health and behavioral disorders - ICD9: V79.8, ICD10: Z13.39 - ANXIETY SCREENING 6. Primary hypertension - ICD9: 401.9, ICD10: I10 - Controlled - Continue current medications 7. Stage 3b chronic kidney disease (HCC) - ICD9: 585.3, ICD10: N18.32 - eGFR: 39 Stable - Counseled on avoiding NSAIDs, adequate hydration - BASIC METABOLIC PANEL 8. Hypertensive kidney disease with stage 3b chronic kidney disease (HCC) - ICD9: 403.90, 585.3, ICD10: I12.9, N18.32 - Controlled - Continue current medications - eGFR: 39 Stable 9. Age-related osteoporosis with current pathological fracture with routine healing - ICD9: V54.29,733.01, ICD10: M80.00XD - continue tx with PROLIA SC. - Reviewed the need for Calcium and Vitamin D supplements and weight bearing exercise as tolerated 10. Nodule of lower lobe of right lung needing follor up CT - ICD9: 793.11, ICD10: R91.1 - Schedule CT scan ordered. 11. Closed displaced fracture of fifth metatarsal bone of right foot with delayed healing, subsequent encounter - ICD9: V54.19, ICD10: S92.351G - Seeing Dr. Suarez. 12. Pure hypercholesterolemia - ICD9: 272.0, ICD10: E78.00 Control TBD. - LIPID PANEL BASIC 13. 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 - ICD9: V12.51, ICD10: Z86.718 - Lifelong warfarin since 2009. Amos Floyd MD * Amos Floyd MD - 01/23/2024 10:26 AM EST Images from the original note were not included. Linda Peralta is a 78 year old female here for a Medicare wellness visit. Medicare Health Risk Assessment General Health Good Exercise: Minutes/Day 0 min Exercise: Days/Week 0 days Alcohol: Daily Use Never Alcohol: Drinks/Day Patient does not drink Alcohol: 6 or more drinks Never Feel off balance No Concerns: Teeth/Dentures No Concerns: Sexual function No Troubled by feelings None of the above Frequency: Eating healthy diet Nearly every day ADLs requiring help None of the above Safety precautions in home/vehicle Yes Smoke, vape, chews tobacco No Difficulty hearing Yes Difficulty seeing No Current Providers Specialists: I have reviewed specialist-related care of the patient in the medical record. Current care team: Patient Care Team: Amos Floyd MD as PCP - General Outside specialists seen: Cardiology-Dr. Ortega [facility] Nephrology- Dr. Jennifer Tarango Pasting Machine Offbearer- Dr. Isreal Carpio Endocrinology- Dr. Alexander Gregory. Dermatology- Dr. Isha Estrada. Podiatry- Dr. Mega Suarez. Urology: Dr. Jian Swartz. Medical/Family history review Reviewed and updated problem list, medical/surgical/family/social history, medications, and allergies. Opioid use review Opioid Medications (last 90 days) No data to display Depression Screening DEPRESSION SCREENING Ordered at: 01/23/24 1023 Based on score and interview, patient is: Not at risk for depression Screening tool discussed with patient, and I recommend: No further intervention at this time PHQ-2 Score: 0 ANXIETY SCREENING Ordered at: 01/23/24 1023 Based on score and interview, patient is: Not at risk for anxiety Screening tool discussed with patient, and I recommend: No further intervention at this time RAIN-2 Score: 0 Cognitive screening Mini Cog Score: 5 Cognitive screening reviewed and No further action needed (score 3-5). Functional Observation Was the patient's Timed Up & Go test unsteady or >= 12 seconds? No Advance Care Planning Surrogate decision maker documented and/or advance directives scanned in chart Measurements BP 128/76 (BP Site: Left Arm, BP Position: Sitting, BP Cuff Size: Large Adult) Pulse 88 Temp 36.4 C (97.5 F) (Temporal) Resp 16 Ht 157.5 cm (5' 2) Wt 64.5 kg (142 lb 3.2 oz) BMI 26.01 kg/m Vision Screening: Follows with optometry/ophthalmology Right: 20/25 Left: 20/ 70 Both: 20/25 Assessment/Plan Medicare annual wellness visit, subsequent (Z00.00) - Counseled on healthy diet and regular exercise - Fall avoidance information provided - Personalized prevention plan provided - Vaccine recommendations. - Colorectal cancer screening reviewed. Even with colon polyps, she was no longer interested in routine screening. [facility] NoteHNO ID: [id number] Author: AMOS FLOYD MD Service: ? Author Type: Physician Type: Progress Notes Filed: 01/23/2024 14:09 Note Text: Linda Peralta is a 78 year old female here for a Medicare wellness visit. Medicare Health Risk Assessment General Health Good Exercise: Minutes/Day 0 min Exercise: Days/Week 0 days Alcohol: Daily Use Never Alcohol: Drinks/Day Patient does not drink Alcohol: 6 or more drinks Never Feel off balance No Concerns: Teeth/Dentures No Concerns: Sexual function No Troubled by feelings None of the above Frequency: Eating healthy diet Nearly every day ADLs requiring help None of the above Safety precautions in home/vehicle Yes Smoke, vape, chews tobacco No Difficulty hearing Yes Difficulty seeing No Current Providers Specialists: I have reviewed specialist-related care of the patient in the medical record. Current care team: Patient Care Team: Amos Floyd MD as PCP - General Outside specialists seen: Cardiology-Dr. Ortega [facility] Nephrology- Dr. Jennifer Tarango Pasting Machine Offbearer- Dr. Isreal Carpio Endocrinology- Dr. Alexander Gregory. Dermatology- Dr. Isha Estrada. Podiatry- Dr. Mega Suarez. Urology: Dr. Jian Swartz. Medical/Family history review Reviewed and updated problem list, medical/surgical/family/social history, medications, and allergies. Opioid use review Opioid Medications (last 90 days) No data to display Depression Screening DEPRESSION SCREENING Ordered at: 01/23/24 1023 Based on score and interview, patient is: Not at risk for depression Screening tool discussed with patient, and I recommend: No further intervention at this time PHQ-2 Score: 0 ANXIETY SCREENING Ordered at: 01/23/24 1023 Based on score and interview, patient is: Not at risk for anxiety Screening tool discussed with patient, and I recommend: No further intervention at this time RAIN-2 Score: 0 Cognitive screening Mini Cog Score: 5 Cognitive screening reviewed and No further action needed (score 3-5). Functional Observation Was the patient's Timed Up AND Go test unsteady or >= 12 seconds? No Advance Care Planning Surrogate decision maker documented and/or advance directives scanned in chart Measurements BP 128/76 (BP Site: Left Arm, BP Position: Sitting, BP Cuff Size: Large Adult) Pulse 88 Temp 36.4 ?C (97.5 ?F) (Temporal) Resp 16 Ht 157.5 cm (5' 2) Wt 64.5 kg (142 lb 3.2 oz) BMI 26.01 kg/m? Vision Screening: Follows with optometry/ophthalmology Right: Left: Both: Assessment/Plan Medicare annual wellness visit, subsequent (Z00.00) - Counseled on healthy diet and regular exercise - Fall avoidance information provided - Personalized prevention plan provided - Vaccine recommendations. - Colorectal cancer screening reviewed. Even with colon polyps, she was no longer interested in routine screening.[facility] Telephone encounter Note* Telephone Encounter - Kelley Rivera LPN - 01/19/2024 3:49 PM EST Called pt and reviewed. She says cardiology wanted chest CT repeated next year. She has appt with pcp 01/23/24 she will review then to see when this needs repeated. [facility] Miscellaneous Notes* Telephone Encounter - Kelley Rivera LPN - 01/19/2024 3:49 PM EST Called pt and reviewed. She says cardiology wanted chest CT repeated next year. She has appt with pcp 01/23/24 she will review then to see when this needs repeated. * Telephone Encounter - Kelley Rivera LPN - 01/19/2024 3:46 PM EST ----- Message from Amos Floyd MD sent at 01/15/2024 6:48 PM EST ----- Regarding: FW: ACTIONABLE IMAGING RESULT Please call patient to schedule lung of her lung recommended by radiology. She had not been readingher messages. CT of lung ordered. ----- Message ----- From: John Blake Sent: 01/15/2024 12:00 AM EST To: Amos Floyd MD Subject: ACTIONABLE IMAGING RESULT You are listed as the PCP for this patient who has a potential actionable result on a recent imaging study. The ordering provider for this exam was notified 2 weeks ago. If the ordering provider has not resolved the recommendation, please take appropriate action. If appropriate action has occurred,then consider this message informational to support you in caring for your patient. [facility] is committed to providing safe care with ZERO HARM to all patients and caregivers.Thank you for your commitment to caring for your patient. Do not respond to this email which is generated by an algorithm. Responses are not monitored. Exam: XR CHEST 2V FRONTAL/LAT Date: Jan 01 2024 1:55PM This report on your patient contains a potential actionable imaging result which may need additional follow-up as recommended below. IMPRESSION: Redemonstration of 2.1 cm nodular density in the right lower lobe. Incidental Finding: Follow-up Acuity: Incidental Finding: Suspicious appearing incidentally detected nodular lung density on CXR Routing Code: RI_1 Recommendation: CT Chest WO IVCON Time Frame: in 4 weeks PLEASE REVIEW THE FULL REPORT FOR ADDITIONAL FINDINGS. If this patient is no longer or was never in your care, please reply to the Imaging Support Services pool so that we can redirect to the appropriate caregiver. documented in this encounterR[facility]11-29-[facility] Telephone encounter Note * Telephone Encounter - Kelley Rivera LPN - 01/19/2024 3:46 PM EST ----- Message from Amos Floyd MD sent at 01/15/2024 6:48 PM EST ----- Regarding: FW: ACTIONABLE IMAGING RESULT Please call patient to schedule lung of her lung recommended by radiology. She had not been readingher messages. CT of lung ordered. ----- Message ----- From: John Blake Sent: 01/15/2024 12:00 AM EST To: Amos Floyd MD Subject: ACTIONABLE IMAGING RESULT You are listed as the PCP for this patient who has a potential actionable result on a recent imaging study. The ordering provider for this exam was notified 2 weeks ago. If the ordering provider has not resolved the recommendation, please take appropriate action. If appropriate action has occurred,then consider this message informational to support you in caring for your patient. [facility] is committed to providing safe care with ZERO HARM to all patients and caregivers.Thank you for your commitment to caring for your patient. Do not respond to this email which is generated by an algorithm. Responses are not monitored. Exam: XR CHEST 2V FRONTAL/LAT Date: Jan 01 2024 1:55PM This report on your patient contains a potential actionable imaging result which may need additional follow-up as recommended below. IMPRESSION: Redemonstration of 2.1 cm nodular density in the right lower lobe. Incidental Finding: Follow-up Acuity: Incidental Finding: Suspicious appearing incidentally detected nodular lung density on CXR Routing Code: RI_1 Recommendation: CT Chest WO IVCON Time Frame: in 4 weeks PLEASE REVIEW THE FULL REPORT FOR ADDITIONAL FINDINGS. If this patient is no longer or was never in your care, please reply to the Imaging Support Services pool so that we can redirect to the appropriate caregiver. [facility]11-25-[facility]24 NoteHNO ID: [id number] Author: AMOS FLOYD MD Service: ? Author Type: Physician Type: Progress Notes Filed: 01/15/2024 18:51 Note Text: ASSESSMENT/PLAN: 1. Nodule of lower lobe of right lung needing follor up CT - ICD9: 793.11, ICD10: R91.1 - CT CHEST WO IVCON Amos Floyd [facility]11-25-2024 History of Present illness Narrative* Amos Floyd MD - 01/15/2024 6:50 PM EST ASSESSMENT/PLAN: 1. Nodule of lower lobe of right lung needing follor up CT - ICD9: 793.11, ICD10: R91.1 - CT CHEST WO IVCON Amos Floyd MD documented in this encounterR[facility]11-21-2024 NoteHNO ID: [id number] Author: DESIRAE ARZOLA LPN Service: ? Author Type: LICENSED NURSE Type: Progress Notes Filed: 01/11/2024 13:42 Note Text: Patient presents for Prolia injection. Denies any problems at this time. Patient instructed on any SE of medication, verbalized understanding and agreed to proceed with treatment. Tolerated injection well. [facility] History of Present illness Narrative* Desirae Arzola LPN - 01/11/2024 1:41 PM EST Patient presents for Prolia injection. Denies any problems at this time. Patient instructed on any SE of medication, verbalized understanding and agreed to proceed with treatment. Tolerated injectionwell. Desirae Arzola LPN documented in this [facility]11-11-[facility]24 History of Present illness Narrative* Marguerite Waller RT(R) - 01/01/2024 1:30 PM EST Radiology Service Progress Note PATIENT NAME: Linda Peralta DATE OF SERVICE: January 01, 2024 TIME: 1:40 PM PATIENT IDENTITY VERIFICATION COMPLETED USING TWO (2) IDENTIFIERS: Name and Date of confirmedby patient verbally. FALL SCREENING: Has the patient had 2 falls in the last year or 1 fall with injury or currently using an Ambulatory Assistive Device (Walker, Cane, Wheelchair, Crutches, etc.)? No PATIENT GENDER DATA: Female. status: : No status: NO. 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 RADIOLOGY DEPARTMENT: General X-ray: Exam(s) Completed: Chest X-Ray PERIPHERAL IV DATA: Not applicable SIGNED BY: RT Doug(Lin) January 01, 2024 1:40 PM documented in this encounterR[facility]11-11-2024 NoteHNO ID: [id number] Author: MARGUERITE WALLER RT(R) Service: Radiology Author Type: Technologist Type: Progress Notes Filed: 01/01/2024 13:56 Note Text: Radiology Service Progress Note PATIENT NAME: Linda Peralta DATE OF SERVICE: January 01, 2024 TIME: 1:40 PM PATIENT IDENTITY VERIFICATION COMPLETED USING TWO (2) IDENTIFIERS: Name and Date of confirmed by patient verbally. FALL SCREENING: Has the patient had 2 falls in the last year or 1 fall with injury or currently using an Ambulatory Assistive Device (Walker, Cane, Wheelchair, Crutches, etc.)? No PATIENT GENDER DATA: Female. status: : No status: NO. 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 [facility]IND[facility] PATIENT NAME: Linda Peralta PRIMARY CARE PHYSICIAN: Amos Floyd MD CHIEF COMPLAINT: Abnormal finding of diagnostic imaging INITIAL VISIT: Yes Patient seen on Audio Only Visit platform. Location of patient: [place] HPI: This is a 78 year old female who presents for further management of a possible abnormal chest x-raydone 06/08/2023 showing a 2.1 cm nodular density on chest X- ray, CT chest recommended. Patient had X-ray a few weeks before at [facility] and we don't have the images buthave the report saying no nodules present. with lung cancer and colon cancer, smoker. in 2020 from this. Lot of secondhand smoke exposure as well. No personal history of cancer. Gets to coughing every once in awhile. Has a few flaps in my arteries not closing but otherwise ok. 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 Cystocele, midline 07/23/2007 Diverticulosis of colon (without mention of hemorrhage) DVT (deep venous thrombosis) ([facility]) 03/23/2012 DVT of lower extremity (deep venous thrombosis) ([facility]) 03/27/2009 Esophageal reflux Gallstones 03/06/2016 Hypercalcemia 03/19/2009 Hypertension Nonrheumatic aortic valve stenosis 06/30/2023 NSTEMI (non-ST elevated myocardial infarction) ([facility]) 04/27/2009 Cardiac cath normal 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 11/13/2013 Alendronate (Fosamax) start: 03/09/2017-03/09/2022 Other adrenal hypofunction PMH - PAST MEDICAL HISTORY OF Left kidney donated Psoriasis and similar disorder Pure hypercholesterolemia 02/17/2015 Right renal mass 03/27/2009 Stage 3b chronic kidney disease (HCC) 07/29/2020 Syncope Tonic pupillary reaction Unspecified disorder of [...] W/COLLJ SPEC WHEN PFRMD 03/26/2010 Inpatient at [facility] ESOPHAGOGASTRODUODENOSCOPY TRANSORAL DIAGNOSTIC 02/2002 EGD ESOPHAGOGASTRODUODENOSCOPY TRANSORAL DIAGNOSTIC 05/01/2009 EGD ESOPHAGOGASTRODUODENOSCOPY TRANSORAL DIAGNOSTIC 11/18/2009 EGD, EXC CYST/ABERRANT BREAST TISSUE OPEN 1 LESION 1960 benign IVC FILTER PERCUTANEOUS 03/31/2009 [...] Age of Onset Coronary Artery Disease Mother [place] at 87y.o. Hypertension Mother Stroke Father Coronary Artery Disease Father sudden at 85y.o. Hypertension Sister COPD Sister Clotting Disorder Sister pulmonary embolism Kidney Disease Brother dec.sepsis, kidney transplant. Hypertension Brother DVT Daughter Breast Cancer Daughter Coronary Artery Disease Brother 65 Social History Tobacco Use Smoking status: Never Smokeless tobacco: Never Vaping Use Vaping status: Never Used Substance Use Topics Alcohol use: No Drug use: No Current Outpatient Medications Medication Sig simvastatin (ZOCOR) 20 mg tablet Take 1 tablet by mouth daily at bedtime. hydrocortisone (CORTEF) 10 mg tablet Take 3 tablets by mouth once daily. As directed per endocrinology. amLODIPine (NORVASC) 5 mg tablet Take 10 mg by mouth once daily. pantoprazole DR (PROTONIX) 40 mg tablet Take 1 tablet by mouth daily at 6 am. nitroglycerin sublingual (NITROQUICK) 0.4 mg SL tablet Dissolve 1 tablet under the tongue every 5 minutes as needed. warfarin (COUMADIN) 2.5 mg tablet Take 2.5 mg by mouth. 2.5 mg daily except 5 mg on Mondays acetaminophen (TYLENOL) 325 mg tablet Take 650 mg by mouth every 6 hours as needed. Current Facility-Administered Medications Medication Dose Route Frequency denosumab 60 mg injection (PROLIA) 60 mg SUBCUTANEOUS Q 6 MONTH Review of patient's allergies indicates: ALLERGIES Allergen Reactions Cipro [Ciprofloxaci* rash with 500mg dose Penicillins rash OBJECTIVE: audio only visit DATA REVIEWED: Imaging: Chest X-ray 06/08/2023 done showing: Report from several weeks before of chest X-ray 05/23/2023 showing no nodules/abnormality and CT chest from 04/2023 showing no abnormality ASSESSMENT: This is a 78 year old female with an actionable finding of nodular density in the lung,artifact vs pneumonia vs other. Unable to see on other images. PLAN: 1. Orders include: to get CXR now and if not able, request CXR/CT records from OSH and will then follow-up afterwards with patient - All questions answered Imaging: XR CHEST 2V FRONTAL/LAT Javier Abbott PA-C December 26, 2023 2:45 PM I spent a total of 11 minutes on the phone call and 45 minutes on the date of the service which included preparing to see the patient, completing clinical documentation, obtaining and/or reviewing separately obtained history, counseling and educating the patient/family/caregiver, ordering medications, tests, or procedures, and independently interpreting results (not separately reported). Has appointment been recommended and forwarded to be made several days after the imaging? No Future Appointments Date Time Provider Department Center 01/11/2024 2:00 PM [facility] 01/23/2024 9:40 AM Amos Floyd MD [facility] Follow-up Plan Additional exams needed for this actionable finding? Yes If Yes, Imaging: XR CHEST 2V FRONTAL/LAT Consults requested: No; Service: NA If No, patient referred back to PCP's care? Does patient have a PCP? Yes If Yes, PCP copied and referred back? Yes If no, patient assisted in setting up care with primary care? No If no, patient declined? No documented in this encounterR[facility]11-08-[facility]24 NoteHNO ID: [id number] Author: JAVIER ABBOTT PA-C Service: ? Author Type: Physician Assembler Motor Vehicle Type: Progress Notes Filed: 03/28/2024 16:18 Note Text: [facility] PATIENT NAME: Linda Peralta PRIMARY CARE PHYSICIAN: Amos Floyd MD CHIEF COMPLAINT: Abnormal finding of diagnostic imaging INITIAL VISIT: Yes Patient seen on Audio Only Visit platform. Location of patient: [place] I have communicated my name and active licensure. The patient's identity and physical location were verified at the time of this visit. Either the patient or their legal brewery representative has been informed of the risks and benefits of -- and alternatives to -- treatment through a remote evaluation and consents to proceed with the evaluation remotely. HPI: This is a 78 year old female who presents for further management of a possible abnormal chest x-ray done 06/08/2023 showing a 2.1 cm nodular density on chest X-ray, CT chest recommended. Patient had X-ray a few weeks before at [facility] and we don't have the images but have the report saying no nodules present. with lung cancer and colon cancer, smoker. in 2020 from this. Lot of secondhand smoke exposure as well. No personal history of cancer. Gets to coughing every once in awhile. Has a few flaps in my arteries not closing but otherwise ok. 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 Cystocele, midline 07/23/2007 Diverticulosis of colon (without mention of hemorrhage) DVT (deep venous thrombosis) ([facility]) 03/23/2012 DVT of lower extremity (deep venous thrombosis) ([facility]) 03/27/2009 Esophageal reflux Gallstones 03/06/2016 Hypercalcemia 03/19/2009 Hypertension Nonrheumatic aortic valve stenosis 06/30/2023 NSTEMI (non-ST elevated myocardial infarction) ([facility]) 04/27/2009 Cardiac cath normal 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 11/13/2013 Alendronate (Fosamax) start: 03/09/2017-03/09/2022 Other adrenal hypofunction PMH - PAST MEDICAL HISTORY OF Left kidney donated Psoriasis and similar disorder Pure hypercholesterolemia 02/17/2015 Right renal mass 03/27/2009 Stage 3b chronic kidney disease (HCC) 07/29/2020 Syncope Tonic pupillary reaction Unspecified disorder of [...] W/COLLJ SPEC WHEN PFRMD 03/26/2010 Inpatient at [facility] ESOPHAGOGASTRODUODENOSCOPY TRANSORAL DIAGNOSTIC 02/2002 EGD ESOPHAGOGASTRODUODENOSCOPY TRANSORAL [...] TOTAL ABDOMINAL HYSTERECT W/WO RMVL TUBE OVARY 1980 Hysterectomy, ARIEL, BSO FAMILY HISTORY Problem Relation Age of Onset Coronary Artery Disease Mother NV at 87y.o. Hypertension Mother Stroke Father Coronary Artery Disease Father sudden at 85y.o. Hypertension Sister COPD Sister Clotting Disorder Sister pulmonary embolism Kidney Disease Brother dec.sepsis, kidney transplant. Hypertension Brother DVT Daughter Breast Cancer Daughter Coronary Artery Disease Brother 65 Social History Tobacco Use Smoking status: Never Smokeless tobacco: Never Vaping Use Vaping status: Never Used Substance Use Topics Alcohol use: No Drug use: No Current Outpatient Medications Medication Sig simvastatin (ZOCOR (more content not included)...[facility] 12-28-2023 Miscellaneous Notes* Telephone Encounter - Kelley Rivera LPN - 12/28/2023 11:57 AM EST Pt notified. Nurse visit arranged for 01/01/24. * Telephone Encounter - Kelley Rivera LPN - 12/28/2023 10:50 AM EST Called [employer] at [phone]. This PA is completed with pharmacy to aileen them at [phone]. This reference number is [id number]. Called pharmacy and they report there is a PA already on file for Dr. Rey Vann covered until 05/11/24. Did start a new PA for pcp. This was reviewed over the phone and PA approved from 12/28/23 to 12/27/24. This auth number is [id number]. They will also fax approval notice too. * Telephone Encounter - Kelley Rivera LPN - 12/28/2023 10:08 AM EST Called pt and she was notified. She is willing to keep getting the prolia if insurance will cover. Will contact them for PA for prolia. * Telephone Encounter - Ariella Christianson RN - 12/27/2023 5:56 PM EST Attempted to contact patient. No answer. Try again. Ariella Christianson, RN * Telephone Encounter - Amos Floyd MD - 12/27/2023 5:46 PM EST I see she still recently had issues with high calcium and her vitamin D is in a good range. So for her, at this time, additional calcium and vitamin D is not recommended. * Telephone Encounter - Milagros Burton LPN - 12/27/2023 3:04 PM EST Patient returned call and went over results, notes from Dr Floyd with understanding. Patient said she is not taking any Calcium or Vitamin D. What dose and is she to start taking both? * Telephone Encounter - Isha Wright LPN - 12/27/2023 2:38 PM EST Left message for Patient to call office. Isha Wright LPN * Telephone Encounter - Amos Floyd MD - 12/27/2023 11:51 AM EST ASSESSMENT/PLAN: 1. Age-related osteoporosis with current pathological fracture with routine healing - ICD9: V54.29,733.01, ICD10: M80.00XD - continue tx with denosumab (Prolia). - Reviewed the need for Calcium and Vitamin D supplements and weight bearing exercise as tolerated - BMD showed improvement from 2020 so continuation of treatment is needed. Amos Floyd MD * Telephone Encounter - Kelley Rivera LPN - 12/26/2023 1:21 PM EST Bone density completed at [facility]. View External Imaging - Bone Density [ID [id number]] Previously completed PA for prolia to be dispensed to retail pharmacy with pharmacy benefits. This was approved with a 100$ copay. Pt said she never had to pay for this. Can try to to prior auth prolia through medical benefits (called buy and bill which means [facility]urance and it is given in the office with a nurse visit) if prilia is still recommended [facility] Tele[facility] encounter Note * Telephone Encounter - Kelley Rivera LPN - 12/28/2023 11:57 AM EST Pt notified. Nurse visit arranged for 01/01/24. [facility] Telephone encounter Note* Telephone Encounter - Kelley Rivera LPN - 12/28/2023 10:50 AM EST Called Pattie at [phone]. This PA is completed with pharmacy to aileen them at [phone]. This reference number is [id number]. Called pharmacy and they report there is a PA already on file for Dr. Rey Vann covered until 05/11/24. Did start a new PA for pcp. This was reviewed over the phone and PA approved from 12/28/23 to 12/27/24. This auth number is [id number]. They will also fax approval notice too. [facility] Telephone encounter Note* Telephone Encounter - Kelley Rivera LPN - 12/28/2023 10:08 AM EST Called pt and she was notified. She is willing to keep getting the prolia if insurance will cover. Will contact them for PA for prolia. [facility]-06-[facility] Telephone encounter Note* Telephone Encounter - Ariella Christianson RN - 12/27/2023 5:56 PM EST Attempted to contact patient. No answer. Try again. Ariella Christiasnon RN [facility]11-06-2024 Telephone encounter Note* Telephone Encounter - Amos Floyd MD - 12/27/2023 5:46 PM EST I see she still recently had issues with high calcium and her vitamin D is in a good range. So for her, at this time, additional calcium and vitamin D is not recommended. [facility]11-06-2024 Telephone encounter Note* Telephone Encounter - Milagros Burton LPN - 12/27/2023 3:04 PM EST Patient returned call and went over results, notes from Dr Floyd with understanding. Patient said she is not taking any Calcium or Vitamin D. What dose and is she to start taking both? [facility]11-06-2024 Telephone encounter Note* Telephone Encounter - Isha Wright LPN - 12/27/2023 2:38 PM EST Left message for Patient to call office. Isha Wright LPN [facility]11-06-2024 Telephone encounter Note* Telephone Encounter - Amos Floyd MD - 12/27/2023 11:51 AM EST ASSESSMENT/PLAN: 1. Age-related osteoporosis with current pathological fracture with routine healing - ICD9: V54.29,733.01, ICD10: M80.00XD - continue tx with denosumab (Prolia). - Reviewed the need for Calcium and Vitamin D supplements and weight bearing exercise as tolerated - BMD showed improvement from 2020 so continuation of treatment is needed. Amos Floyd MD [facility]11-05-2024 Telephone encounter Note* Telephone Encounter - Kelley Rivera LPN - 12/26/2023 1:21 PM EST Bone density completed at [facility]. View External Imaging - Bone Density [ID [id number]] Previously completed PA for prolia to be dispensed to retail pharmacy with pharmacy benefits. This was approved with a 100$ copay. Pt said she never had to pay for this. Can try to to prior auth prolia through medical benefits (called buy and bill which means [facility] and it is given in the office with a nurse visit) if prilia is still recommended [facility]10-30-2024 NoteHNO ID: [id number] Author: NATHALY REN APRN.SPORTS TEAM MANAGER Service: ? Author Type: Nurse Practitioner Type: Progress Notes Filed: 12/20/2023 16:10 Note Text: ACTIONABLE FINDING OUTREACH Actionable finding: The results showed (copied from the radiologist's report): There is a 2.1cm nodular density profile in the right lower lung Our radiologist recommends: CT chest Index scan: CXR 06/08/2023 Outreaches: Welcome MYC message from [facility]: 06/09/2023 MYC sent by MAIKEL: 08/17/2023 MYC sent by MAIKEL: 12/07/2023 Phone call: 12/20/2023- left to call back and/or check MyChart Routed to [employer] for scheduling 12/20/2023 Imaging result: routed to PCP 12/20/2023 [x] Added to/on problem list [x] Initial MAIKEL documentation 08/17/[address] chest a few weeks before this finding which did not have a report of lung nodules. We do not have the images to compare. Will reach out to the patient and recommend phone phone call encounter possibly get the images to compare to see if CT chest is needed CT chest outside [facility] History of Present illness Narrative* Nathaly Ren APRN.SPORTS TEAM MANAGER - 12/20/2023 12:29 PM EDT Images from the original note were not included. ACTIONABLE FINDING OUTREACH Actionable finding: The results showed (copied from the radiologist's report): There is a 2.1cm nodular density profile in the right lower lung Our radiologist recommends: CT chest Index scan: CXR 06/08/2023 Outreaches: Welcome MYC message from [facility]: 06/09/2023 MYC sent by MAIKEL: 08/17/2023 MYC sent by MAIKEL: 12/07/2023 Phone call: 12/20/2023- left to call back and/or check MyChart Routed to [employer] for scheduling 12/20/2023 Imaging result: routed to PCP 12/20/2023 [x] Added to/on problem list [x] Initial MAIKEL documentation 08/17/[address] chest a few weeks before this finding which did not have a report of lung nodules. We do not have the images to compare. Will reach out to the patient and recommend phone phonecall encounter possibly get the images to compare to see if CT chest is needed CT chest outside hospital 05/15/2023 documented [facility] Telephone encounter Note * Telephone Encounter - Torsten Butler MA - 12/11/2023 9:20 AM EDT Patient notified, verbalized understanding. DXA scheduled for 12/20 [facility] Miscellaneous Notes* Telephone Encounter - Torsten Butler MA - 12/11/2023 9:20 AM EDT Patient notified, verbalized understanding. DXA scheduled for 12/20 * Telephone Encounter - Amos Floyd MD - 12/09/2023 12:11 PM EDT Okay. Do bone density and we'll evaluate options at her follow up in January. * Telephone Encounter - Jorge Victoria RN - 12/08/2023 10:42 AM EDT Patient returned call and given message below. Patient reports she's never had to pay $100, and shehas been getting this every 6 mths. Patient asking if she can stop taking it? Reports it really hasn't helped her. Reports she broke her foot last year. Please advise patient, and cancel Rx at [facility]. * Telephone Encounter - Kelely Rivera LPN - 12/07/2023 2:35 PM EDT Called the pharmacy and they report this is covered and pt to pay 100$. They will order this. Message left to pt to return call to a nurse. She can contact the pharmacy to see when she can pickthis up. She needs to review the storage for this when she gets this. She can arrange for a nurse visit to bring in the injection for the nurse to give. * Telephone Encounter - Amos Floyd MD - 12/07/2023 12:16 PM EDT The following approved medication requests have been transmitted electronically. Requested Prescriptions Signed Prescriptions Disp Refills denosumab (PROLIA) 60 mg/mL 1 mL 1 Sig: Inject 1 mL subcutaneously once every 6 months. Authorizing Provider: AMOS FLOYD MD * Telephone Encounter - Kelley Rivera LPN - 12/07/2023 10:08 AM EDT Fax rec'd from [email or web address] regarding the prolia. They note the prescription is already covered by the plan with no restrictions with pharmacy D plan. Pt will need rx to local pharmacy and bring to an appt with nurse schedule to be given here. * Telephone Encounter - Kelley Rivera LPN - 12/06/2023 4:32 PM EDT Pt notified we are waiting for insurance to review a prior auth for the prolia * Telephone Encounter - Kelley Rivera LPN - 12/06/2023 3:55 PM EDT This went to pharmacy benefits. LINDA JIMÉNEZBONY (Cross: [id number]) - [id number] Prolia 60MG/ML syringes status: PA Request Created: December 06, 2023 Sent: December 06, 2023 Will see what their response is,may have to call for medical benefits PA coverage to review. * Telephone Encounter - Kelley Rivera LPN - 12/06/2023 2:15 PM EDT Per benefits inquiry it appears pt is covered now with [employer] medicare. * Telephone Encounter - Kelley Rivera LPN - 12/06/2023 2:12 PM EDT Called [employer] and pt no longer covered. This was terminated 02/20/23. * Telephone Encounter - Kelley Rivera LPN - 12/06/2023 12:25 PM EDT In review the prolia is already approved with her insurance from 02/20/23 to 02/20/2024 through [facility]. Will call her insurance to see if we can just change the provider and place of service. There wouldbe no change with her clinical requirements. * Telephone Encounter - Kelley Rivera LPN - 12/05/2023 4:19 PM EDT PA needed for prolia. [facility] Telephone encounter Note * Telephone Encounter - Amos Floyd MD - 12/09/2023 12:11 PM EDT Okay. Do bone density and we'll evaluate options at her follow up in January. [facility]10-18-[facility] Telephone encounter Note* Telephone Encounter - Jorge Victoria RN - 12/08/2023 10:42 AM EDT Patient returned call and given message below. Patient reports she's never had to pay $100, and shehas been getting this every 6 mths. Patient asking if she can stop taking it? Reports it really hasn't helped her. Reports she broke her foot last year. Please advise patient, and cancel Rx at [facility]. [facility] Telephone encounter Note* Telephone Encounter - Kelley Rivera LPN - 12/07/2023 2:35 PM EDT Called the pharmacy and they report this is covered and pt to pay 100$. They will order this. Message left to pt to return call to a nurse. She can contact the pharmacy to see when she can pickthis up. She needs to review the storage for this when she gets this. She can arrange for a nurse visit to bring in the injection for the nurse to give. [facility] Telephone encounter Note* Telephone Encounter - Amos Floyd MD - 12/07/2023 12:16 PM EDT The following approved medication requests have been transmitted electronically. Requested Prescriptions Signed Prescriptions Disp Refills denosumab (PROLIA) 60 mg/mL 1 mL 1 Sig: Inject 1 mL subcutaneously once every 6 months. Authorizing Provider: AMOS FLOYD MD [facility] Telephone encounter Note* Telephone Encounter - Kelley Rivera LPN - 12/07/2023 10:08 AM EDT Fax rec'd from [facility] regarding the prolia. They note the prescription is already covered by the plan with no restrictions with pharmacy D plan. Pt will need rx to local pharmacy and bring to an appt with nurse schedule to be given here. [facility] Telephone encounter Note* Telephone Encounter - Kelley Rivera LPN - 12/06/2023 4:32 PM EDT Pt notified we are waiting for insurance to review a prior auth for the prolia [facility] Telephone encounter Note* Telephone Encounter - Kelley Rivera LPN - 12/06/2023 4:29 PM EDT Prescription Refill Information The patient has been identified by name and date of : Yes Caregiver verified no other encounters exist for this prescription request: Yes Caregiver confirmed with patient/requestor that no other refills are due, in the near future, with this provider at this time: Yes The last office visit in the department: 06/30/23 Does the patient have a future office visit with this provider/department: y Refill for simvastatin Kelley Rivera LPN December 06, 2023 4:29 PM [facility] Miscellaneous Notes* Telephone Encounter - Kelley Rivera LPN - 12/06/2023 4:29 PM EDT Prescription Refill Information The patient has been identified by name and date of : Yes Caregiver verified no other encounters exist for this prescription request: Yes Caregiver confirmed with patient/requestor that no other refills are due, in the near future, with this provider at this time: Yes The last office visit in the department: 06/30/23 Does the patient have a future office visit with this provider/department: y Refill for simvastatin Kelley Rivera LPN December 06, 2023 4:29 PM documented in this encounterR[facility]10-[facility] Telephone encounter Note * Telephone Encounter - Kelley Rivera LPN - 12/06/2023 3:55 PM EDT This went to pharmacy benefits. CORINNA (Cross: [id number]) - [id number] Prolia 60MG/ML syringes status: PA Request Created: December 06, 2023 Sent: December 06, 2023 Will see what their response is,may have to call for medical benefits PA coverage to review. [facility] Telephone encounter Note* Telephone Encounter - Kelley Rivera LPN - 12/06/2023 2:15 PM EDT Per benefits inquiry it appears pt is covered now with [employer] medicare. [facility] Telephone encounter Note* Telephone Encounter - Kelley Rivera LPN - 12/06/2023 2:12 PM EDT Called [employer] and pt no longer covered. This was terminated 02/20/23. [facility] Telephone encounter Note* Telephone Encounter - Kelley Rivera LPN - 12/06/2023 12:25 PM EDT In review the prolia is already approved with her insurance from 02/20/23 to 02/20/2024 through [facility]. Will call her insurance to see if we can just change the provider and place of service. There wouldbe no change with her clinical requirements. [facility] Telephone encounter Note* Telephone Encounter - Kelley Rivera LPN - 12/05/2023 4:19 PM EDT PA needed for prolia. [facility]10-[facility] Telephone encounter Note* Telephone Encounter - Salima Pedraza RN - 12/01/2023 1:25 PM EDT Patient calls back and notified of below. Patient voiced understanding. Patient asking where she should get the prolia shot at? Patient asking if provider can order hydrocortisone 10 mg 3 tablets by mouth? Patient states that she is out of medication and is unable to get a hold of Dr. Gregory's Office. Patient states that she needs enough to get past the weekend. Please review and advise, Salima Pedraza RN [facility]10-11-2024 Miscellaneous Notes* Telephone Encounter - Salima Pedraza RN - 12/01/2023 1:25 PM EDT Patient calls back and notified of below. Patient voiced understanding. Patient asking where she should get the prolia shot at? Patient asking if provider can order hydrocortisone 10 mg 3 tablets by mouth? Patient states that she is out of medication and is unable to get a hold of Dr. Gregory's Office. Patient states that she needs enough to get past the weekend. Please review and advise, Salima Pedraza RN * Telephone Encounter - Torsten Butler MA - 11/30/2023 1:57 PM EDT Left message to call office. 11/30/2023 1:57 PM Dxa scan order faxed to [facility]. * Telephone Encounter - Amos lFoyd MD - 11/30/2023 12:24 PM EDT ASSESSMENT/PLAN: 1. Age-related osteoporosis with current pathological fracture with routine healing - ICD9: V54.29,733.01, ICD10: M80.00XD - DENOSUMAB 60 MG/ML SUBCUTANEOUS SYRINGE. Ordered. - DXA-AXIAL SKELETON. Do this at [facility] where she's had previous bone densities. Amos Floyd MD * Telephone Encounter - Va Aguayo RN - 11/28/2023 2:31 PM EDT Patient returned call and given provider's message below. Patient states she does not see Dr. Vann any more-that she was dismissed from them due to Dr. Vann does not work with [place]. She states her last Prolia injection was in May and she is due. Patient asking if Dr. Floyd would be agreeable to placing a Prolia injection order for her? Reports she could see a Dr. Gregory in [place], part of [facility], for this but more convenientfor her to ask PCP. Or, does PCP feel she does need any further Prolia injections? Please advise. Thank you. * Telephone Encounter - Isha Wright LPN - 11/28/2023 1:55 PM EDT Left message to call & speak to nurse. Isha Wright LPN * Telephone Encounter - Rocio Elizalde APRN.SPORTS TEAM MANAGER - 11/28/2023 1:38 PM EDT It looks like this is being managed by Dr. King Rocio Elizalde APRN.SPORTS TEAM MANAGER * Telephone Encounter - Jeaneth Rodriguez - 11/28/2023 11:42 AM EDT Pt wondering if Dr. Amor can order a prolia shot for her, please review and advise. Jeaneth Rodriguez November 28, 2023 11:42 AM documented in this encounterR[facility]10-[facility]-2024 Telephone encounter Note * Telephone Encounter - Torsten Butler MA - 11/30/2023 1:57 PM EDT Left message to call office. 11/30/2023 1:57 PM Dxa scan order faxed to [facility]. [facility]10-10-[facility] Telephone encounter Note* Telephone Encounter - Amos Floyd MD - 11/30/2023 12:24 PM EDT ASSESSMENT/PLAN: 1. Age-related osteoporosis with current pathological fracture with routine healing - ICD9: V54.29,733.01, ICD10: M80.00XD - DENOSUMAB 60 MG/ML SUBCUTANEOUS SYRINGE. Ordered. - DXA-AXIAL SKELETON. Do this at [facility] where she's had previous bone densities. Amos Floyd MD [facility]10-08-2024 Telephone encounter Note* Telephone Encounter - Va Aguayo RN - 11/28/2023 2:31 PM EDT Patient returned call and given provider's message below. Patient states she does not see Dr. Vann any more-that she was dismissed from them due to Dr. Vann does not work with [place]. She states her last Prolia injection was in May and she is due. Patient asking if Dr. Floyd would be agreeable to placing a Prolia injection order for her? Reports she could see a Dr. Gregory in [place], part of [facility], for this but more convenientfor her to ask PCP. Or, does PCP feel she does need any further Prolia injections? Please advise. Thank you. [facility]10-08-2024 Telephone encounter Note* Telephone Encounter - Isha Wright LPN - 11/28/2023 1:55 PM EDT Left message to call & speak to nurse. Isha Wright LPN [facility]10-08-2024 Telephone encounter Note* Telephone Encounter - Rocio Elizalde APRN.CNP - 11/28/2023 1:38 PM EDT It looks like this is being managed by Dr. King Rocio Elizalde APRN.SPORTS TEAM MANAGER [facility]10-08-2024 Telephone encounter Note* Telephone Encounter - Jeaneth Rodriguez - 11/28/2023 11:42 AM EDT Pt wondering if Dr. Amor can order a prolia shot for her, please review and advise. Jeaneth Rodriguez November 28, 2023 11:42 AM [facility]09-24-2024 NoteHNO ID: [id number] Author: ECHO MILLER RN Service: ? Author Type: Registered Nurse Type: Progress Notes Filed: 11/14/2023 15:48 Note Text: CC [facility] NURSE - CHART REVIEW Provider FYI P[facility] Action Chart review 06/08/23 [facility] ED for patient had 2 episodes of chest pain approximately 15 minutes, described as a dull pressure in her chest associate with nausea that have since resolved. This happened earlier this morning. Patient is on Coumadin, for repeat lower extremity DVTs. Patient was recently been in the hospital for [place], [place], and been treated for hypercalcemia. Since that time patient's been weak, fatigued, had decreased appetite and has not felt herself. High-sensitivity troponin checked which showed elevated around 1000, subsequent level downtrending to 900. She did not have any more chest pain since then only 2 episodes of dry heaves, last episode was evening. Her high-sensitivity troponin continued to be checked and start uptrending again from 910, 1049, 1276, 1069. 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 She was also found to have UTI and hypercalcemia Pt TT [facility] for ADM with NSTEMI. Pt identified by name and . Reason for Review: Payor request Patient Attributed To: QAE Payer: PATTIE Chart Review For: Utilization: ED Total Patient High CostTotal Patient High Cost {HIGH COST:886284) Quality measure review Payor request for assistance Action Taken: Data submitted to payor Echo Miller RN November 14, 2023 3:40 [facility]CM[facility] History of Present illness Narrative* Echo Miller RN - 11/14/2023 3:40 PM EDT [facility] NURSE - CHART REVIEW Provider [facility] Action Chart review 06/08/23 [facility] ED for patient had 2 episodes of chest pain approximately 15 minutes, described as a dull pressure in her chest associate with nausea that have since resolved. This happened earlier this morning. Patient is on Coumadin, for repeat lower extremity DVTs. Patient was recently been in the hospital for [place], [facility] crisis, and been treated for hypercalcemia. Since that timepatient's been weak, fatigued, had decreased appetite and has not felt herself. High-sensitivity troponin checked which showed elevated around 1000, subsequent level downtrending to 900. She did not have any more chest pain since then only 2 episodes of dry heaves, last episode was evening. Her high-sensitivity troponin continued to be checked and start uptrending again from 910, 1049, 1276, 1069. 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 She was also foundto have UTI and hypercalcemia Pt TT [facility] for ADM with NSTEMI. Pt identified by name and . Reason for Review: Payor request Patient Attributed To: HORACE Payer: PATTIE Chart Review For: Utilization: ED Total Patient High CostTotal Patient High Cost {HIGH COST:393874) Quality measure review Payor request for assistance Action Taken: Data submitted to payor Echo Miller RN November 14, 2023 3:40 PM documented in this encounterRiverside [facility]09-24-2024 NotePatient Outreach ([facility]) LINDA PERALTA ([id number]) 1945 F Date Time Provider Department 11/14/23 ECHO MILLER During your visit today, we recorded the following information about you: Echo Miller RN 11/14/2023 3:48 PM Signed [facility] NURSE - CHART REVIEW Provider [facility] Action Chart review 06/08/23 [facility] ED for patient had 2 episodes of chest pain approximately 15 minutes, described as a dull pressure in her chest associate with nausea that have since resolved. This happened earlier this morning. Patient is on Coumadin, for repeat lower extremity DVTs. Patient was recently been in the hospital for [place] [facility], [place], and been treated for hypercalcemia. Since that time patient's been weak, fatigued, had decreased appetite and has not felt herself. High-sensitivity troponin checked which showed elevated around 1000, subsequent level downtrending to 900. She did not have any more chest pain since then only 2 episodes of dry heaves, last episode was evening. Her high-sensitivity troponin continued to be checked and start uptrending again from 910, 1049, 1276, 1069. 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 She was also found to have UTI and hypercalcemia Pt TT [facility] for ADM with NSTEMI. Pt identified by name and . Reason for Review: Payor request Patient Attributed To: ERICE Payer: PATTIE Chart Review For: Utilization: ED Total Patient High CostTotal Patient High Cost {HIGH COST:727857) Quality measure review Payor request for assistance Action Taken: Data submitted to payor Echo Miller RN November 14, 2023 3:40 PM Allergies As of Date: 11/14/2023 Noted Allergy Reaction CIPRO (CIPROFLOXACIN) 07/22/2009 Comments: rash with 500mg dose PENICILLINS 06/17/2002 Comments: rash Date Reviewed: 08/11/2023 Reviewed by: Tiana Mills LPN - Fully Assessed Prescriptions as of 11/14/2023 - hydrocortisone (CORTEF) 10 mg tablet Take 3 tablets by mouth once daily. As directed per endocrinology. - amLODIPine (NORVASC) 5 mg tablet Take 10 mg by mouth once daily. - pantoprazole DR (PROTONIX) 40 mg tablet Take 1 tablet by mouth daily at 6 am. - simvastatin (ZOCOR) 20 mg tablet Take 1 tablet by mouth daily at bedtime. - nitroglycerin sublingual (NITROQUICK) 0.4 mg SL tablet Dissolve 1 tablet under the tongue every 5 minutes as needed. - denosumab (PROLIA) 60 mg/mL Inject 60 mg subcutaneously once every [address] Torsten Vann, endocrinology. Due mid-June - warfarin (COUMADIN) 2.5 mg tablet Take 2.5 mg by mouth. 2.5 mg daily except 5 mg on Mondays - acetaminophen (TYLENOL) 325 mg tablet Take 650 mg by mouth every 6 hours as needed. Problem List As Of Date 11/14/2023 Noted Resolved Disorder of autonomic nervous system [G90.9] 10/20/2003 Adrenal hypofunction (HCC) [E27.40] DERMATITIS NOS [L25.9] 07/18/2008 IMPAIRED RENAL FUNCT NOS [N25.9] 04/26/2005 07/18/2008 BENIGN NEOPLASM LG BOWEL [D12.6] 04/26/2005 ASTHMA UNSPECIFIED [J45.909] 09/21/2005 07/18/2008 Cystocele, midline [N81.11] 07/23/2007 02/27/2017 Nontoxic multinodular goiter [E04.2] 12/11/2007 09/23/2017 Hypercalcemia [E83.52] 03/19/2009 06/13/2023 DVT of lower extremity (deep venous thrombosis)*03/28/2009 09/05/2011 Right Renal Mass [N28.89] 03/28/2009 08/26/2009 Hypokalemia [E87.6] 04/09/2009 05/14/2009 Other Specified Pre-Operative Examination [Z01.*04/09/2009 05/14/2009 SUMMARY [V999.95] 04/25/2009 08/26/2009 Elevation of Cardiac Enzymes [R74.8] 04/25/2009 08/26/2009 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] 08/26/2009 12/30/2009 CKD (chronic kidney disease) stage 3, GFR 30-59*08/26/2009 09/23/2020 Anemia [D64.9] 08/26/2009 09/09/2012 Chronic diarrhea [K52.9] 03/15/2010 03/03/2011 Collagenous colitis [K52.831] 03/30/2010 03/03/2011 ASHD (arteriosclerotic heart disease) [I25.10] 04/25/2009 DVT (deep venous thrombosis) ([facility]) [I82.409] 03/23/2012 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 [M85.80] 11/13/2013 06/30/2023 Chronic nonallergic rhinitis [J31.0] 03/20/2014 Pure hypercholesterolemia [E78.00] 02/17/2015 Gallstones [K80.20] 03/06/2016 08/24/2016 Pain of upper abdomen [R10.10] 03/10/2016 02/27/2017 Personal history of colonic polyps [Z86.010] 03/10/2016 02/27/2017 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] 11/18/2019 Hypertension [I10] 04/14/2020 Generalized muscle weakness [M62.81] 05/27/2020 06/30/2023 Stage 3b chronic kidney disease (HCC) [N18.32] 07/29/2020 Hypertensive kidney disease with stage 3b chron*07/15/2021 Hip pain [M25.559] 11/01/2022 06/30/2023 Age-related osteoporosis with current pathologi*01/19/2023 Closed displaced fracture of fifth metatarsal b*03/22/2023 Gait abnormality [R26.9] 03/28/2023 Physical deconditioning [R53.81] 05/31/2023 Weakness [R53.1] 05/31/2023 NS (more content not included)...[facility]07-30-2024 History of Present illness Narrative* Kole El, PT - 09/19/2023 12:06 PM EDT Program_ID:[id number] Access Code: [email or web address] URL: [email or web address] Date: 09-19-2023 Prepared By: Kole El Program Notes Exercises - Mini Squat with Counter Support - 2 x daily - 4-5 x weekly - 2 sets - 10 reps - Standing Hip Abduction with Counter Support - 2 x daily - 4-5 x weekly - 2 sets - 10 reps - Seated Long Arc Quad with Ankle Weight - 2 x daily - 4-5 x weekly - 2 sets - 10 reps - Standing April with Counter Support - 2 x daily - 4-5 x weekly - 2 sets - 10 reps - Heel Toe Raises with Counter Support - 2 x daily - 4-5 x weekly - 2 sets - 10-15 reps - Goblet Squat with Kettlebell - 2 x daily - 4-5 x weekly - 2 sets - 8-10 reps - Side Stepping with Resistance at Ankles and Counter Support - 2 x daily - 4-5 x weekly - 3-5 sets - reps - Step Up - 1-2 x daily - 4-5 x weekly - 2 sets - 8-12 reps - Active Straight Leg Raise with Quad Set - 2 x daily - 4-5 x weekly - 2 sets - 6-10 reps - Supine April - 2 x daily - 4-5 x weekly - 2 sets - 8-10 reps * Kole El, PT - 09/19/2023 11:34 AM EDT Images from the original note were not included. Episode Visit Count: 20 Therapist That Will Accept/Oversee The Plan Of Care: Kole El, PT, DPT. Start of Care Date: 03/28/23 Onset Date: 11/07/22 Plan of Care Certification Date: 08/09/23 Next Certification Due Date: 09/20/23 Patient Identified by Name and Date of : Yes REHABILITATION AND SPORTS THERAPY PHYSICAL THERAPY DISCONTINUANCE OF CARE PLAN OF CARE UPDATE: Assessment: Linda Peralta is discontinued from Physical Therapy services due to goal achievement.. Patient was seen for 20 visits from Start of Care Date: 03/28/23 to 09/19/2023 and treatment included: Therapeutic exercise, Neuromuscular re-education, Manual therapy, Self-fdc management, andGait training. Updated 05/31/23 & 07/05/23, 08/09/23, 09/19/23. Goals for Episode of Care: created on 03/28/23 through 09/19/23 [place] in home exercise program.-- MET Patient will decrease pain rating by 2 points to meet minimal clinical important difference for numeric pain rating scale.-- MET Patient will demonstrate increase in BLE strength to 4+ to 5/5 (abdoulaye. Hip flexors & hip ABD) during manual muscle testing in order to improve function for basic self-care tasks, home management tasks, prior functional tasks, and light functional tasks.-- MET Improve gait mechanics for ability tp return to leisure / recreation exercise.-- MET Improve stair ascending negotiation without report of symptoms/pain in 6 weeks.(Extended for more time)-- MET NEW GOALS (Added 05/31/23). Improve score on Timed Up and Go Test to <10.5 seconds to reflect decreased fall risk. -MET Improve score on 30 Second Chair Stand to >11 repetitions to reflect decreased fall risk. -MET Improve performance on 4 Stage Balance Test to >7 for tandem and at least >3 seconds for B SLS to reflect decreased fall risk. -MET Patient Goals: Reduce pain; improve movement; get back to PLOF. SUBJECTIVE: Patient feels confident in continuing maintenance of progression on her own; notes needing to remember to use cuff weights to progress resistance. Has down more steps than normal this past week without difficulty. Pain: Pain Pain Level: 0 Post Treatment Pain Post Treatment Pain Level: 0 PROMIS Scales 09/08/2023 08/09/2023 06/28/2023 Higher is Better Phys Func - Score 45 (within normal limits) 47 (within normal limits) 44 (mild dysfunction) Phys Func - Percentile 31 38 27 Self-Eff Symptom - Score 46 (Average) 44 (Average) Self-Eff Symptom - Percentile 34 27 T-scores: mean of general population = 50. 5 points is clinically meaningfully difference Percentiles provide an indication of how the patient's score ranks in relation to the general population. Higher percentile rankings indicate better function/quality of life. 50th percentile is the average of the general population and indicates half of respondents had a worse score. OBJECTIVE MEASURES WITH LEVEL OF FUNCTION: LE Strength R LE Strength: WFL, 5/5 gross. L LE Strength: WFL, 5/5 gross. R Hip Flexion (L2): 4+/5 R Hip ABduction: 4+/5 L Hip Flexion (L2): 4+/5 L Hip ABduction: 4+/5 Functional Performance Test Results Assistive Device: None 30 Second Chair Stand Test: 13 reps (No use of hands.) 5 Times Sit to Stand Test : 11.26 sec (W/O use of hands.) Timed Up and Go (sec): 8.89 sec 2 Minute Step Test: 94 4 Stage Balance Test Narrow base of support (sec): 10 sec Semi-tandem base of support (sec): 10 sec Tandem base of support (sec): 10 sec Single leg stance - right (sec): 7.7 sec Single leg stance - left (sec): 10 sec Vitals BP: 131/87 Pulse: 90 TREATMENT: Therapeutic Exercise: 1: Warm Up on SCI-FIT: 6 Minutes, seat # 12, level 4.0. (Direct 1:1 and subjective taken.) 2: Reassessment and objectives collected above. 3: Discussed HEP/Home maintenance program; discussed how to create a plan/mix- match exercises; discussed parameters and what exercises are appropriate to use a cuff weight with; discussed safety during completion of exercises. Continued to advise on active lifestyle and daily activity. 4: *New HEP Printed and handout given. See below for exercises/handout given. 5: Mini Squat with Counter Support, Standing Hip Abduction with Counter Support, Seated Long Arc Quad with Ankle Weight, Standing March with Counter Support, Heel Toe Raises with Counter Support, Goblet Squat with Kettlebell, Side Stepping with Resistance at Ankles and Counter Support, Step Up, Straight Leg Raise, & Supine March. Skilled Intervention: Patient was educated in proper exercise technique and purpose for exercises. Reviewed and educated patient on additions/changes for home exercise program as above (*). Skilled judgment was used in selection of appropriate interventions. Provided written instruction for home exercise program to facilitate proper performance and compliance. Billing Therapeutic Exercise Treatment Minutes: 33 Skilled Treatment Time Minutes (timed and untimed codes): 33 Total Session Time (minutes): 33 Session Start Time : 1130 Session Stop Time : 1203 Kole El PT [facility] NoteHNO ID: [id number] Author: KOLE EL PT Service: ? Author Type: Physical Therapist Type: Progress Notes Filed: 09/19/2023 12:13 Note Text: Episode Visit Count: 20 Therapist That Will Accept/Oversee The Plan Of Care: Kole El PT, DPT. Start of Care Date: 03/28/23 Onset Date: 11/07/22 Plan of Care Certification Date: 08/09/23 Next Certification Due Date: 09/20/23 Patient Identified by Name and Date of : Yes REHABILITATION AND SPORTS THERAPY PHYSICAL THERAPY DISCONTINUANCE OF CARE PLAN OF CARE UPDATE: Assessment: Linda Peralta is discontinued from Physical Therapy services due to goal achievement.. Patient was seen for 20 visits from Start of Care Date: 03/28/23 to 09/19/2023 and treatment included: Therapeutic exercise, Neuromuscular re-education, Manual therapy, Self-fdc management, and Gait training. Updated 05/31/23 AND 07/05/23, 08/09/23, 09/19/23. Goals for Episode of Care: created on 03/28/23 through 09/19/23 [place] in home exercise program.-- MET Patient will decrease pain rating by 2 points to meet minimal clinical important difference for numeric pain rating scale.-- MET Patient will demonstrate increase in BLE strength to 4+ to 5/5 (abdoulaye. 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 Improve score on Timed Up and Go Test to <10.5 seconds to reflect decreased fall risk. -MET Improve score on 30 Second Chair Stand to >11 repetitions to reflect decreased fall risk. -MET Improve performance on 4 Stage Balance Test to >7 for tandem and at least >3 seconds for B SLS to reflect decreased fall risk. -MET Patient Goals: Reduce pain; improve movement; get back to PLOF. SUBJECTIVE: Patient feels confident in continuing maintenance of progression on her own; notes needing to remember to use cuff weights to progress resistance. Has down more steps than normal this past week without difficulty. Pain: Pain Pain Level: 0 Post Treatment Pain Post Treatment Pain Level: 0 PROMIS Scales 09/08/2023 08/09/2023 06/28/2023 Higher is Better Phys Func - Score 45 (within normal limits) 47 (within normal limits) 44 (mild dysfunction) Phys Func - Percentile 31 38 27 Self-Eff Symptom - Score 46 (Average) 44 (Average) Self-Eff Symptom - Percentile 34 27 T-scores: mean of general population = 50. 5 points is clinically meaningfully difference Percentiles provide an indication of how the patient's score ranks in relation to the general population. Higher percentile rankings indicate better function/quality of life. 50th percentile is the average of the general population and indicates half of respondents had a worse score. OBJECTIVE MEASURES WITH LEVEL OF FUNCTION: LE Strength R LE Strength: WFL, 5/5 gross. L LE Strength: WFL, 5/5 gross. R Hip Flexion (L2): 4+/5 R Hip ABduction: 4+/5 L Hip Flexion (L2): 4+/5 L Hip ABduction: 4+/5 Functional Performance Test Results Assistive Device: None 30 Second Chair Stand Test: 13 reps (No use of hands.) 5 Times Sit to Stand Test : 11.26 sec (W/O use of hands.) Timed Up and Go (sec): 8.89 sec 2 Minute Step Test: 94 4 Stage Balance Test Narrow base of support (sec): 10 sec Semi-tandem base of support (sec): 10 sec Tandem base of support (sec): 10 sec Single leg stance - right (sec): 7.7 sec Single leg stance - left (sec): 10 sec Vitals BP: 131/87 Pulse: 90 TREATMENT: Therapeutic Exercise: 1: Warm Up on SCI-FIT: 6 Minutes, seat # 12, level 4.0. (Direct 1:1 and subjective taken.) 2: Reassessment and objectives collected above. 3: Discussed HEP/Home maintenance program; discussed how to create a plan/mix-match exercises; discussed parameters and what exercises are appropriate to use a cuff weight with; discussed safety during completion of exercises. Continued to advise on active lifestyle and daily activity. 4: *New HEP Printed and handout given. See below for exercises/handout given. 5: Mini Squat with Counter Support, Standing Hip Abduction with Counter Support, Seated Long Arc Quad with Ankle Weight, Standing March with Counter Support, Heel Toe Raises with Counter Support, Goblet Squat with Kettlebell, Side Stepping with Resistance at Ankles and Counter Support, Step Up, Straight Leg Raise, AND Supine March. Skilled Intervention: Patient was educated in proper exercise technique and purpose for exercises. Reviewed and educated patient on additions/changes for home exercise program as above (*). Skilled judgment was used in selection of appropriate interventions. Provided written instruction for (more content not included)...[facility]07-23-2024 NoteHNO ID: [id number] Author: KOLE EL PT Service: ? Author Type: Physical Therapist Type: Progress Notes Filed: 09/12/2023 12:26 Note Text: Episode Visit Count: 19 Therapist That Will Accept/Oversee The Plan Of Care: Kole El PT, DPT. Start of Care Date: 03/28/23 Onset Date: 11/07/22 Plan of Care Certification Date: 08/09/23 Next Certification Due Date: 09/20/23 Patient Identified by Name and Date of : Yes REHABILITATION AND SPORTS THERAPY PHYSICAL THERAPY TREATMENT NOTE ASSESSMENT: Linda Peralta tolerated the session with expected muscle soreness and no issues. She demonstrated decreased eccentric ABD strength during monster walks. The patient will continue to benefit from ongoing skilled physical therapy to progress toward set goals. PLAN FOR NEXT VISIT: Progress Report; possible discharge. SUBJECTIVE: Reports feeling tired today; reports busy days and fatigue with physical activities at home. Notes improvement overall, however depends on the day and things she needs to get done. Pain: Pain Pain Level: 0 Post Treatment Pain Post Treatment Pain Level: 0 OBJECTIVE MEASURES WITH LEVEL OF FUNCTION: increased medial knee collapse bilateral during descend to sit. Functional Strength Functional Strength: During air-squats -- aberrant movement present with moderate hip weight shift to the R during descend. Vitals BP: 126/81 Pulse: 99 Intra Heart Rate 2: 71 Intra BP 2: 121/80 (Upon Leaving following 5x5 STS.) TREATMENT: Therapeutic Exercise: 1: Warm Up on SCI-FIT: 6 Minutes, seat # 12, level 4.0. (Direct 1:1 and subjective taken.) 2: 10 FWD Step Up: 1x10 ea. then 1x10 ea. with 1#cuff on ankles 3: Airsquats:3x8. 4: STS with ball press: 4x8, 11# ball 5: 6 Lateral Stepups: 2x10 ea. 6: Lateral Walks: 3 Laps of 10feet, OTB. 7: STS with OTB around thighs: 5x5. Skilled Intervention: Patient was educated in proper exercise technique and purpose for exercises. Skilled judgment was used in selection of appropriate interventions. Correct performance of therapeutic exercises was facilitated with verbal, visual, and tactile cuing. Patient education as noted. Billing Therapeutic Exercise Treatment Minutes: 40 Skilled Treatment Time Minutes (timed and untimed codes): 40 Total Session Time (minutes): 40 Session Start Time : 1112 Session Stop Time : 1152 Kole El [facility]07-23-2024 History of Present illness Narrative* Kole El, PT - 09/12/2023 11:10 AM EDT Episode Visit Count: 19 Therapist That Will Accept/Oversee The Plan Of Care: Kole El PT, DPT. Start of Care Date: 03/28/23 Onset Date: 11/07/22 Plan of Care Certification Date: 08/09/23 Next Certification Due Date: 09/20/23 Patient Identified by Name and Date of : Yes REHABILITATION AND SPORTS THERAPY PHYSICAL THERAPY TREATMENT NOTE ASSESSMENT: Linda Peralta tolerated the session with expected muscle soreness and no issues. She demonstrated decreased eccentric ABD strength during monster walks. The patient will continue to benefit from ongoing skilled physical therapy to progress toward set goals. PLAN FOR NEXT VISIT: Progress Report; possible discharge. SUBJECTIVE: Reports feeling tired today; reports busy days and fatigue with physical activities at home. Notes improvement overall, however depends on the day and things she needs to get done. Pain: Pain Pain Level: 0 Post Treatment Pain Post Treatment Pain Level: 0 OBJECTIVE MEASURES WITH LEVEL OF FUNCTION: increased medial knee collapse bilateral during descend to sit. Functional Strength Functional Strength: During air-squats -- aberrant movement present with moderate hip weight shift to the R during descend. Vitals BP: 126/81 Pulse: 99 Intra Heart Rate 2: 71 Intra BP 2: 121/80 (Upon Leaving following 5x5 STS.) TREATMENT: Therapeutic Exercise: 1: Warm Up on SCI-FIT: 6 Minutes, seat # 12, level 4.0. (Direct 1:1 and subjective taken.) 2: 10 FWD Step Up: 1x10 ea. then 1x10 ea. with 1#cuff on ankles 3: Airsquats:3x8. 4: STS with ball press: 4x8, 11# ball 5: 6 Lateral Stepups: 2x10 ea. 6: Lateral Walks: 3 Laps of 10feet, OTB. 7: STS with OTB around thighs: 5x5. Skilled Intervention: Patient was educated in proper exercise technique and purpose for exercises. Skilled judgment was used in selection of appropriate interventions. Correct performance of therapeutic exercises was facilitated with verbal, visual, and tactile cuing. Patient education as noted. Billing Therapeutic Exercise Treatment Minutes: 40 Skilled Treatment Time Minutes (timed and untimed codes): 40 Total Session Time (minutes): 40 Session Start Time : 1112 Session Stop Time : 1152 Kole El PT [facility] NoteHNO ID: [id number] Author: KOLE EL PT Service: ? Author Type: Physical Therapist Type: Progress Notes Filed: 09/08/2023 15:08 Note Text: Episode Visit Count: 18 Therapist That Will Accept/Oversee The Plan Of Care: Kole El PT, DPT. Start of Care Date: 03/28/23 Onset Date: 11/07/22 Plan of Care Certification Date: 08/09/23 Next Certification Due Date: 09/20/23 Patient Identified by Name and Date of : Yes REHABILITATION AND SPORTS THERAPY PHYSICAL THERAPY TREATMENT NOTE ASSESSMENT: Linda Peralta tolerated the session with fatigue, expected muscle soreness, and no issues. She demonstrated increased difficulty with right lower extremity exercises compared to the left lower extremity.The patient will continue to benefit from ongoing skilled physical therapy to progress toward set goals. PLAN FOR NEXT VISIT: Lateral Monster walks; hip flexor strength progressions. SUBJECTIVE: Legs feel week from mowing yesterday, light soreness today. Pain: Pain Pain Level: 0 Post Treatment Pain Post Treatment Pain Level: 0 OBJECTIVE MEASURES WITH LEVEL OF FUNCTION: Improved STS tolerance this date without fatigue. Vitals BP: 115/79 Pulse: 98 TREATMENT: Therapeutic Exercise: 1: Warm Up on SCI-FIT: 6 Minutes, seat # 12, level 4.0. (Direct 1:1 and subjective taken.) 2: 10 FWD Step Up: 2x10 ea. 3: Standing Hip March: 2x10 ea., 3#cuff. 4: STS: 4x8, 10#kb. 5: Hip Flexor Lift Offs: 2x12, off green box. 6: 6 LAT Stepups: 2x10 ea. Skilled Intervention: Patient was educated in proper exercise technique and purpose for exercises. Skilled judgment was used in selection of appropriate interventions. Correct performance of therapeutic exercises was facilitated with verbal, visual, and tactile cuing. Billing Therapeutic Exercise Treatment Minutes: 38 Skilled Treatment Time Minutes (timed and untimed codes): 38 Total Session Time (minutes): 38 Session Start Time : 1430 Session Stop Time : 1508 Kole El [facility]07-19-2024 History of Present illness Narrative* Kole El, PT - 09/08/2023 2:32 PM EDT Episode Visit Count: 18 Therapist That Will Accept/Oversee The Plan Of Care: Kole El PT, DPT. Start of Care Date: 03/28/23 Onset Date: 11/07/22 Plan of Care Certification Date: 08/09/23 Next Certification Due Date: 09/20/23 Patient Identified by Name and Date of : Yes REHABILITATION AND SPORTS THERAPY PHYSICAL THERAPY TREATMENT NOTE ASSESSMENT: Linda Peralta tolerated the session with fatigue, expected muscle soreness, and no issues. She demonstrated increased difficulty with right lower extremity exercises compared to the left lower extremity.The patient will continue to benefit from ongoing skilled physical therapy to progress toward set goals. PLAN FOR NEXT VISIT: Lateral Monster walks; hip flexor strength progressions. SUBJECTIVE: Legs feel week from mowing yesterday, light soreness today. Pain: Pain Pain Level: 0 Post Treatment Pain Post Treatment Pain Level: 0 OBJECTIVE MEASURES WITH LEVEL OF FUNCTION: Improved STS tolerance this date without fatigue. Vitals BP: 115/79 Pulse: 98 TREATMENT: Therapeutic Exercise: 1: Warm Up on SCI-FIT: 6 Minutes, seat # 12, level 4.0. (Direct 1:1 and subjective taken.) 2: 10 FWD Step Up: 2x10 ea. 3: Standing Hip March: 2x10 ea., 3#cuff. 4: STS: 4x8, 10#kb. 5: Hip Flexor Lift Offs: 2x12, off green box. 6: 6 LAT Stepups: 2x10 ea. Skilled Intervention: Patient was educated in proper exercise technique and purpose for exercises. Skilled judgment was used in selection of appropriate interventions. Correct performance of therapeutic exercises was facilitated with verbal, visual, and tactile cuing. Billing Therapeutic Exercise Treatment Minutes: 38 Skilled Treatment Time Minutes (timed and untimed codes): 38 Total Session Time (minutes): 38 Session Start Time : 1430 Session Stop Time : 1508 Kole lE PT [facility] NoteHNO ID: [id number] Author: KOLE EL PT Service: ? Author Type: Physical Therapist Type: Progress Notes Filed: 08/30/2023 15:54 Note Text: Episode Visit Count: 17 Therapist That Will Accept/Oversee The Plan Of Care: Kole El PT, DPT. Start of Care Date: 03/28/23 Onset Date: 11/07/22 Plan of Care Certification Date: 08/09/23 Next Certification Due Date: 09/20/23 Patient Identified by Name and Date of : Yes REHABILITATION AND SPORTS THERAPY PHYSICAL THERAPY TREATMENT NOTE ASSESSMENT: Linda Peralta tolerated the session with fatigue and expected muscle soreness. She demonstrated increased difficulty with R SLR > L SLR. The patient will continue to benefit from ongoing skilled physical therapy to progress toward set goals. PLAN FOR NEXT VISIT: Functional strengthening; anterior thigh sagittal strengthening. SUBJECTIVE: Patient doing good; notes no trips or falls however notes she needs to pick her feet up. Pain: Pain Pain Level: 0 Post Treatment Pain Post Treatment Pain Level: 0 OBJECTIVE MEASURES WITH LEVEL OF FUNCTION: Increased difficulty with R Hip Flexor Lifts compared to L. Vitals BP: 115/79 Pulse: 79 TREATMENT: Therapeutic Exercise: 1: Warm Up on SCI-FIT: 6 Minutes, seat # 12 (Direct 1:1 and subjective taken.) 2: SLR: 2x10 ea. 3: Supine Hip March: 2x8, 3#cuff. 4: Sidelying Hip Flexion (ABD Series): 2x10. 5: STS: 3x6, 10#kb. 6: Hip Flexor Lift Offs: 2x12, off green box. Skilled Intervention: Patient was educated in proper exercise technique and purpose for exercises. Skilled judgment was used in selection of appropriate interventions. Correct performance of therapeutic exercises was facilitated with verbal, visual, and tactile cuing. Billing Therapeutic Exercise Treatment Minutes: 40 Skilled Treatment Time Minutes (timed and untimed codes): 40 Total Session Time (minutes): 40 Session Start Time : 1448 Session Stop Time : [facility] of Present illness Narrative* Kole El PT - 08/30/2023 2:47 PM EDT Episode Visit Count: 17 Therapist That Will Accept/Oversee The Plan Of Care: Kole El PT, DPT. Start of Care Date: 03/28/23 Onset Date: 11/07/22 Plan of Care Certification Date: 08/09/23 Next Certification Due Date: 09/20/23 Patient Identified by Name and Date of : Yes REHABILITATION AND SPORTS THERAPY PHYSICAL THERAPY TREATMENT NOTE ASSESSMENT: Linda Peralta tolerated the session with fatigue and expected muscle soreness. She demonstrated increased difficulty with R SLR > L SLR. The patient will continue to benefit from ongoing skilled physical therapy to progress toward set goals. PLAN FOR NEXT VISIT: Functional strengthening; anterior thigh sagittal strengthening. SUBJECTIVE: Patient doing good; notes no trips or falls however notes she needs to pick her feet up. Pain: Pain Pain Level: 0 Post Treatment Pain Post Treatment Pain Level: 0 OBJECTIVE MEASURES WITH LEVEL OF FUNCTION: Increased difficulty with R Hip Flexor Lifts compared to L. Vitals BP: 115/79 Pulse: 79 TREATMENT: Therapeutic Exercise: 1: Warm Up on SCI-FIT: 6 Minutes, seat # 12 (Direct 1:1 and subjective taken.) 2: SLR: 2x10 ea. 3: Supine Hip March: 2x8, 3#cuff. 4: Sidelying Hip Flexion (ABD Series): 2x10. 5: STS: 3x6, 10#kb. 6: Hip Flexor Lift Offs: 2x12, off green box. Skilled Intervention: Patient was educated in proper exercise technique and purpose for exercises. Skilled judgment was used in selection of appropriate interventions. Correct performance of therapeutic exercises was facilitated with verbal, visual, and tactile cuing. Billing Therapeutic Exercise Treatment Minutes: 40 Skilled Treatment Time Minutes (timed and untimed codes): 40 Total Session Time (minutes): 40 Session Start Time : 8 Session Stop Time : 1527 Kole El PT [facility] NoteHNO ID: [id number] Author: JACINDA EARLY PT Service: ? Author Type: Physical Therapist Type: Progress Notes Filed: 08/21/2023 12:39 Note Text: Episode Visit Count: 16 Therapist That Will Accept/Oversee The Plan Of Care: Kole El PT, DPT. Start of Care Date: 03/28/23 Onset Date: 11/07/22 Plan of Care Certification Date: 08/09/23 Next Certification Due Date: 09/20/23 Patient Identified by Name and Date of : Yes REHABILITATION AND SPORTS THERAPY PHYSICAL THERAPY TREATMENT NOTE ASSESSMENT: Linda Peralta tolerated the session with fatigue and expected muscle soreness. She demonstrated difficulty with R SLR due to fatigue. The patient will continue to benefit from ongoing skilled physical therapy to progress toward set goals. PLAN FOR NEXT VISIT: Cotninue with quad and hip flexor strengthening and functional strengthening with chacking vitals intermittently SUBJECTIVE: Pt reports that they upped her BP medication to 10mg of amlodipine. Pt reports that some days her legs are weaker than others, not sure why. Able to complete all of her daily tasks. Pain: Pain Pain Level: 0 Post Treatment Pain Post Treatment Pain Level: 0 OBJECTIVE MEASURES WITH LEVEL OF FUNCTION: Good form with squats. Vitals BP: 118/83 Pulse: 81 Pre BP: 126/85 Intra Assessment 1: Heart Rate Intra 1 Intra Heart Rate 1: 88 Intra BP 1: 118/81 Intra Assessment 2: Heart Rate Intra 2 Intra Heart Rate 2: 93 TREATMENT: Therapeutic Exercise: 1: Warm Up on SCI-FIT: 6 Minutes, seat # 12 (Direct 1:1 and subjective taken.) 2: Step ups on 6 inch step 2x12 B 3: Lateral step ups on 4 inch step 2x10 B 4: Mini squats at // bars 2x10 5: SLR 2x7 RLE ,2x10 LLE Skilled Intervention: Patient was educated in proper exercise technique and purpose for exercises. Skilled judgment was used in selection of appropriate interventions. Correct performance of therapeutic exercises was facilitated with verbal and visual cuing. Billing Therapeutic Exercise Treatment Minutes: 40 Skilled Treatment Time Minutes (timed and untimed codes): 40 Total Session Time (minutes): 40 Session Start Time : 1145 Session Stop Time : 1225 Gisel Bolaños, [employer] Jacinda Early, [facility]07-01-2024 History of Present illness Narrative* Jacinda Early, PT - 08/21/2023 11:49 AM EDT Episode Visit Count: 16 Therapist That Will Accept/Oversee The Plan Of Care: Kole El, PT, DPT. Start of Care Date: 03/28/23 Onset Date: 11/07/22 Plan of Care Certification Date: 08/09/23 Next Certification Due Date: 09/20/23 Patient Identified by Name and Date of : Yes REHABILITATION AND SPORTS THERAPY PHYSICAL THERAPY TREATMENT NOTE ASSESSMENT: Linda Peralta tolerated the session with fatigue and expected muscle soreness. She demonstrated difficulty with R SLR due to fatigue. The patient will continue to benefit from ongoing skilled physical therapy to progress toward set goals. PLAN FOR NEXT VISIT: Cotninue with quad and hip flexor strengthening and functional strengthening with chacking vitals intermittently SUBJECTIVE: Pt reports that they upped her BP medication to 10mg of amlodipine. Pt reports that some days her legs are weaker than others, not sure why. Able to complete all of her daily tasks. Pain: Pain Pain Level: 0 Post Treatment Pain Post Treatment Pain Level: 0 OBJECTIVE MEASURES WITH LEVEL OF FUNCTION: Good form with squats. Vitals BP: 118/83 Pulse: 81 Pre BP: 126/85 Intra Assessment 1: Heart Rate Intra 1 Intra Heart Rate 1: 88 Intra BP 1: 118/81 Intra Assessment 2: Heart Rate Intra 2 Intra Heart Rate 2: 93 TREATMENT: Therapeutic Exercise: 1: Warm Up on SCI-FIT: 6 Minutes, seat # 12 (Direct 1:1 and subjective taken.) 2: Step ups on 6 inch step 2x12 B 3: Lateral step ups on 4 inch step 2x10 B 4: Mini squats at // bars 2x10 5: SLR 2x7 RLE ,2x10 LLE Skilled Intervention: Patient was educated in proper exercise technique and purpose for exercises. Skilled judgment was used in selection of appropriate interventions. Correct performance of therapeutic exercises was facilitated with verbal and visual cuing. Billing Therapeutic Exercise Treatment Minutes: 40 Skilled Treatment Time Minutes (timed and untimed codes): 40 Total Session Time (minutes): 40 Session Start Time : 1145 Session Stop Time : 1225 AURELIA Crockett PT [facility] NoteHNO ID: [id number] Author: AMOS FLOYD MD Service: ? Author Type: Physician Type: Progress Notes Filed: 08/11/2023 11:20 Note Text: This note was created using HipGeo. Subjective Linda Peralta is a 78 year old female here with her daughter. Her blood pressure was improving, and she was able to complete physical therapy this week. 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 They had been titrating her dose upward. She was scheduled to see her shoe reconditioner, Dr. Gregory at . He did not receive the send out lab I ordered, so copy of the send out was printed and given to patient. Review of Systems Constitutional: Negative for fatigue. Respiratory: Negative for shortness of breath. Cardiovascular: Negative for chest pain, palpitations and leg swelling. Neurological: Positive for weakness. Negative for dizziness and headaches. 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 simvastatin (ZOCOR) 20 mg tablet Take 1 tablet by mouth daily at bedtime. nitroglycerin sublingual (NITROQUICK) 0.4 mg SL tablet Dissolve 1 tablet under the tongue every 5 minutes as needed. denosumab (PROLIA) 60 mg/mL Inject 60 mg subcutaneously once every [address] Torsten Vann, endocrinology. Due mid-June warfarin (COUMADIN) 2.5 mg tablet Take 2.5 mg by mouth. 2.5 mg daily except 5 mg on Mondays acetaminophen (TYLENOL) 325 mg tablet Take 650 mg by mouth every 6 hours as needed. hydrocortisone (CORTEF) 10 mg tablet Take 3 tablets by mouth once daily. As directed per endocrinology. pantoprazole DR (PROTONIX) 40 mg tablet Take 1 tablet by mouth daily at 6 am. No current facility-administered medications for this visit. Objective There were no vitals taken for this visit. Physical Exam Constitutional: General: She is not in acute distress. Appearance: She is not ill-appearing. Cardiovascular: Rate and Rhythm: Normal rate and regular rhythm. Heart sounds: S1 normal and S2 normal. Murmur heard. Systolic murmur is present with a grade of 2/6. Comments: Aortic murmur. Pulmonary: Effort: No respiratory distress. Breath sounds: No wheezing or rales. Musculoskeletal: Right lower leg: No edema. Left lower leg: No edema. Neurological: General: No focal deficit present. Mental Status: She is alert. Test results pertinent to today's visit were reviewed and discussed with the patient. Assessment and Plan 1. Primary hypertension - ICD9: 401.9, ICD10: I10 (primary diagnosis) - Improving control - Continue current medications 2. Hypercalcemia - ICD9: 275.42, ICD10: E83.52 - Improved. - HYDROCORTISONE 10 MG TABLET 3. Adrenal hypofunction (HCC) - ICD9: 255.41, ICD10: E27.40 - Improved. - HYDROCORTISONE 10 MG TABLET 4. Nonrheumatic aortic valve stenosis - ICD9: 424.1, ICD10: I35.0 - Asymptomatic. Monitored per [facility]. Amos Floyd [facility]06-21-2024 History of Present illness Narrative* Amos Floyd MD - 08/11/2023 10:58 AM EDT This note was created using NoteWriter. Subjective Linda Peralta is a 78 year old female here with her daughter. Her blood pressure was improving, and she was able to complete physical therapy this week. 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 They had been titrating her dose upward. She was scheduled to see her shoe reconditioner, Dr. Gregory at . He did not receive the send out lab I ordered, so copy of the send out was printed and given to patient. Review of Systems Constitutional: Negative for fatigue. Respiratory: Negative for shortness of breath. Cardiovascular: Negative for chest pain, palpitations and leg swelling. Neurological: Positive for weakness. Negative for dizziness and headaches. 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 simvastatin (ZOCOR) 20 mg tablet Take 1 tablet by mouth daily at bedtime. nitroglycerin sublingual (NITROQUICK) 0.4 mg SL tablet Dissolve 1 tablet under the tongue every 5 minutes as needed. denosumab (PROLIA) 60 mg/mL Inject 60 mg subcutaneously once every [address] Torsten Vann, endocrinology. Due mid-June warfarin (COUMADIN) 2.5 mg tablet Take 2.5 mg by mouth. 2.5 mg daily except 5 mg on Mondays acetaminophen (TYLENOL) 325 mg tablet Take 650 mg by mouth every 6 hours as needed. hydrocortisone (CORTEF) 10 mg tablet Take 3 tablets by mouth once daily. As directed per endocrinology. pantoprazole DR (PROTONIX) 40 mg tablet Take 1 tablet by mouth daily at 6 am. No current facility-administered medications for this visit. Objective There were no vitals taken for this visit. Physical Exam Constitutional: General: She is not in acute distress. Appearance: She is not ill-appearing. Cardiovascular: Rate and Rhythm: Normal rate and regular rhythm. Heart sounds: S1 normal and S2 normal. Murmur heard. Systolic murmur is present with a grade of 2/6. Comments: Aortic murmur. Pulmonary: Effort: No respiratory distress. Breath sounds: No wheezing or rales. Musculoskeletal: Right lower leg: No edema. Left lower leg: No edema. Neurological: General: No focal deficit present. Mental Status: She is alert. Test results pertinent to today's visit were reviewed and discussed with the patient. Assessment and Plan 1. Primary hypertension - ICD9: 401.9, ICD10: I10 (primary diagnosis) - Improving control - Continue current medications 2. Hypercalcemia - ICD9: 275.42, ICD10: E83.52 - Improved. - HYDROCORTISONE 10 MG TABLET 3. Adrenal hypofunction (HCC) - ICD9: 255.41, ICD10: E27.40 - Improved. - HYDROCORTISONE 10 MG TABLET 4. Nonrheumatic aortic valve stenosis - ICD9: 424.1, ICD10: I35.0 - Asymptomatic. Monitored per [facility]. Amos Floyd MD [facility] Telephone encounter Note * Telephone Encounter - Isha Wright LPN - 08/10/2023 10:28 AM EDT Below recommendation left on identified vm. Isha Wright LPN [facility] Miscellaneous Notes* Telephone Encounter - Isha Wright LPN - 08/10/2023 10:28 AM EDT Below recommendation left on identified vm. Isha Wright LPN * Telephone Encounter - Amos Floyd MD - 08/10/2023 6:10 AM EDT I think she should increase amlodipine to 10 mg daily. [facility] gave her 90 day supply so take two tablets daily. * Telephone Encounter - Isha Wright LPN - 08/08/2023 4:13 PM EDT Spoke to , she called Dr. Chandra 08/02/2023, he prescribed Amlodipine (Norvasc) 5mg once daily,Patient has taken as prescribed for the last 7 days. has last PT tomorrow, 08/10/2023, unable able to do last 3 weeks, x1 d/t , x2 d/t elevated BP. Patient is planning on come to her appt. 08/11/2023. Isha Wright LPN * Telephone Encounter - Amos Floyd MD - 08/08/2023 2:42 PM EDT PT not done due to high blood pressure. Patient did not read [employer] message 07/18. Clarify with patient what she is taking for hypertension. Further instructions to follow. Keep appointment this week. [facility] Telephone encounter Note * Telephone Encounter - Amos Floyd MD - 08/10/2023 6:10 AM EDT I think she should increase amlodipine to 10 mg daily. [facility] gave her 90 day supply so take two tablets daily. [facility]06-[facility] NoteHNO ID: [id number] Author: KOLE EL, PT Service: ? Author Type: Physical Therapist Type: Progress Notes Filed: 08/09/2023 10:05 Note Text: Episode Visit Count: 15 Therapist That Will Accept/Oversee The Plan Of Care: Kole El PT, DPT. Start of Care Date: 03/28/23 Onset Date: 11/07/22 Plan of Care Certification Date: 08/09/23 Next Certification Due Date: 09/20/23 Patient Identified by Name and Date of : Yes REHABILITATION AND SPORTS THERAPY PHYSICAL THERAPY PROGRESS REPORT PLAN OF CARE UPDATE: Assessment: Linda Peralta demonstrates improvements in walking; walking in the community; physical activities; recreational activities; stair negotiation and rising from a chair. She has progressed toward goals. Patient continues to present with impairments in ADL's, independence in exercise, strength, and symptom management that interfere with (Lifting Legs into Car, Getting up from the ground/kneeling; intermittently needs to use UEs to assist rise from chair; has not been able to return to mowing yet.) Current prognosis is Good due to: current objective clinical presentation, positive past response to therapy, within-session changes, good support system/ coping skills . She will benefit from continued skilled therapy services to meet the updated goals for this plan of care as noted below. Updated 05/31/23 AND 07/05/23, 08/09/23. Goals for Episode of Care: created on 03/28/23 through 08/09/23 [place] in home exercise program.-- Met continue to monitor Patient will decrease pain rating by 2 points to meet minimal clinical important difference for numeric pain rating scale.-- Met, continue to monitor Patient will demonstrate increase in BLE strength to 4+ to 5/5 (abdoulaye. Hip flexors AND hip ABD) during manual muscle testing in order to improve function for basic self-care tasks, home management tasks, prior functional tasks, and light functional tasks.-- (progressing towards). Improve gait mechanics for ability tp return to leisure / recreation exercise.-- (progressing towards). Improve stair ascending negotiation without report of symptoms/pain in 6 weeks.(Extended for more time)-- (progressing towards). NEW GOALS (Added 05/31/23). Improve score on Timed Up and Go Test to <10.5 seconds to reflect decreased fall risk. (Currently MET) Improve score on 30 Second Chair Stand to >11 repetitions to reflect decreased fall risk. (Currently MET) Improve performance on 4 Stage Balance Test to >7 for tandem and at least >3 seconds for B SLS to reflect decreased fall risk. (Currently MET for tandem, not for SLS) Patient Goals: Reduce pain; improve movement; get back to PLOF. Planned Interventions, Frequency, and Duration: 1x/week, 5 weeks Total Number of Visits Planned: 5 Patient to be seen for Therapeutic exercise (59527), Neuromuscular re-education (44094), Manual therapy (26401), Self-fdc management (75113), Therapeutic activities (66791), Gait Training (38626), Patient/Family/Caregiver Education, General Conditioning PLAN FOR NEXT VISIT: Hip Flexor and Quadricep Strengthening; functional activities. SUBJECTIVE: Patient reports starting to take 5mg of amlodipine daily; DBP has been <100 recently. Functional Limitations: (Lifting Legs into Car, Getting up from the ground/kneeling; intermittently needs to use UEs to assist rise from chair; has not been able to return to mowing yet.) Pain: Pain Pain Level: 0 Post Treatment Pain Post Treatment Pain Level: 0 PROMIS Scales 08/09/2023 06/28/2023 06/14/2023 Higher is Better Phys Func - Score 47 (within normal limits) 44 (mild dysfunction) Phys Func - Percentile 38 27 Self-Eff Symptom - Score 44 (Average) 45 (Average) Self-Eff Symptom - Percentile 27 31 T-scores: mean of general population = 50. 5 points is clinically meaningfully difference Percentiles provide an indication of how the patient's score ranks in relation to the general population. Higher percentile rankings indicate better function/quality of life. 50th percentile is the average of the general population and indicates half of respondents had a worse score. OBJECTIVE MEASURES WITH LEVEL OF FUNCTION: LE Strength R LE Strength: Grossly 4+/5 L LE Strength: Grossly 4+/5 R Hip Extension: 4/5 R Hip Flexion (L2): 4-/5 R Hip ABduction: 4-/5 L Hip Extension: 4/5 L Hip Flexion (L2): 4-/5 L Hip ABduction: 4-/5 Gait Weight Bearing Status: FWB Gait: Independent Gait Device: None Gait Observation: Slight waddle, B trendelenburg (R>L), Stairs: Step-To Pattern, unable to complete reciprocal. Functional Performance Test Results 30 Second Chair Stand Test: 15 reps (Light use of hands.) 5 Times Sit to Stand Test : 8.25 sec Timed Up and Go (sec): 8.97 sec 2 Minute Step Test: 80 4 Stage Balance Test Narrow base of support (sec): 10 sec Semi-tandem base of support (sec): 10 sec Tandem base of support (sec): 9 sec (more content not included)...[facility]06-19-2024 History of Present illness Narrative* Kole El, PT - 08/09/2023 9:26 AM EDT Episode Visit Count: 15 Therapist That Will Accept/Oversee The Plan Of Care: Kole El PT, DPT. Start of Care Date: 03/28/23 Onset Date: 11/07/22 Plan of Care Certification Date: 08/09/23 Next Certification Due Date: 09/20/23 Patient Identified by Name and Date of : Yes REHABILITATION AND SPORTS THERAPY PHYSICAL THERAPY PROGRESS REPORT PLAN OF CARE UPDATE: Assessment: Linda Peralta demonstrates improvements in walking; walking in the community; physical activities; recreational activities; stair negotiation and rising from a chair. She has progressed toward goals. Patient continues to present with impairments in ADL's, independence in exercise, strength, and symptom management that interfere with (Lifting Legs into Car, Getting up from the ground/kneeling; intermittently needs to use UEs to assist rise from chair; has not been able to return to mowing yet.) Current prognosis is Good due to: current objective clinical presentation, positive past response to therapy, within-session changes, good support system/ coping skills . She will benefit from continued skilled therapy services to meet the updated goals for this plan of care as noted below. Updated 05/31/23 & 07/05/23, 08/09/23. Goals for Episode of Care: created on 03/28/23 through 08/09/23 [place] in home exercise program.-- Met continue to monitor Patient will decrease pain rating by 2 points to meet minimal clinical important difference for numeric pain rating scale.-- Met, continue to monitor Patient will demonstrate increase in BLE strength to 4+ to 5/5 (abdoulaye. Hip flexors & hip ABD) during manual muscle testing in order to improve function for basic self-care tasks, home management tasks, prior functional tasks, and light functional tasks.-- (progressing towards). Improve gait mechanics for ability tp return to leisure / recreation exercise.-- (progressing towards). Improve stair ascending negotiation without report of symptoms/pain in 6 weeks.(Extended for more time)-- (progressing towards). NEW GOALS (Added 05/31/23). Improve score on Timed Up and Go Test to <10.5 seconds to reflect decreased fall risk. (Currently MET) Improve score on 30 Second Chair Stand to >11 repetitions to reflect decreased fall risk. (Currently MET) Improve performance on 4 Stage Balance Test to >7 for tandem and at least >3 seconds for B SLS to reflect decreased fall risk. (Currently MET for tandem, not for SLS) Patient Goals: Reduce pain; improve movement; get back to PLOF. Planned Interventions, Frequency, and Duration: 1x/week, 5 weeks Total Number of Visits Planned: 5 Patient to be seen for Therapeutic exercise (13461), Neuromuscular re-education (91864), Manual therapy (55292), Self-fdc management (67076), Therapeutic activities (69958), Gait Training (71643), Patient/Family/Caregiver Education, General Conditioning PLAN FOR NEXT VISIT: Hip Flexor and Quadricep Strengthening; functional activities. SUBJECTIVE: Patient reports starting to take 5mg of amlodipine daily; DBP has been <100 recently. Functional Limitations: (Lifting Legs into Car, Getting up from the ground/kneeling; intermittentlyneeds to use UEs to assist rise from chair; has not been able to return to mowing yet.) Pain: Pain Pain Level: 0 Post Treatment Pain Post Treatment Pain Level: 0 PROMIS Scales 08/09/2023 06/28/2023 06/14/2023 Higher is Better Phys Func - Score 47 (within normal limits) 44 (mild dysfunction) Phys Func - Percentile 38 27 Self-Eff Symptom - Score 44 (Average) 45 (Average) Self-Eff Symptom - Percentile 27 31 T-scores: mean of general population = 50. 5 points is clinically meaningfully difference Percentiles provide an indication of how the patient's score ranks in relation to the general population. Higher percentile rankings indicate better function/quality of life. 50th percentile is the average of the general population and indicates half of respondents had a worse score. OBJECTIVE MEASURES WITH LEVEL OF FUNCTION: LE Strength R LE Strength: Grossly 4+/5 L LE Strength: Grossly 4+/5 R Hip Extension: 4/5 R Hip Flexion (L2): 4-/5 R Hip ABduction: 4-/5 L Hip Extension: 4/5 L Hip Flexion (L2): 4-/5 L Hip ABduction: 4-/5 Gait Weight Bearing Status: FWB Gait: Independent Gait Device: None Gait Observation: Slight waddle, B trendelenburg (R>L), Stairs: Step-To Pattern, unable to complete reciprocal. Functional Performance Test Results 30 Second Chair Stand Test: 15 reps (Light use of hands.) 5 Times Sit to Stand Test : 8.25 sec Timed Up and Go (sec): 8.97 sec 2 Minute Step Test: 80 4 Stage Balance Test Narrow base of support (sec): 10 sec Semi-tandem base of support (sec): 10 sec Tandem base of support (sec): 9 sec Single leg stance - right (sec): 2.56 sec Single leg stance - left (sec): 1.95 sec Vitals BP: 139/87 Pulse: 78 Pre Assessment: Heart Rate Pre Heart Rate: 94 Pre BP: 160/94 (Following Sci-Fit Warm-up.) Intra Assessment 1: Heart Rate Intra 1 Intra Heart Rate 1: 81 Intra BP 1: 134/84 (After TUG, Balance, Sit to Stand testing.) Intra BP 2: 158/92 (Following 2 Min Step Step.) TREATMENT: Therapeutic Exercise: 1: Warm Up on SCI-FIT: 6 Minutes (Direct 1:1 and subjective taken.) 2: *Re-assessment per above, discussion on patient's progress; extra time spent taking BP reading and making sure within clinic guidelines. 3: *Rediscussed POC, treatment options moving forward; discussed normative finding for outcome measures. Skilled Intervention: Patient was educated in proper exercise technique and purpose for exercises. Reviewed and educated patient on additions/changes for home exercise program as above (*). Skilled judgment was used in selection of appropriate interventions. Correct performance of therapeutic exercises was facilitated with verbal, visual, and tactile cuing. Patient education as noted. Billing Therapeutic Exercise Treatment Minutes: 41 Skilled Treatment Time Minutes (timed and untimed codes): 41 Total Session Time (minutes): 41 Session Start Time : 916 Session Stop Time : 957 Kole El PT [facility] * Telephone Encounter - Isha Wright LPN - 08/08/2023 4:13 PM EDT Spoke to , she called Dr. Chandra 08/02/2023, he prescribed Amlodipine (Norvasc) 5mg once daily,Patient has taken as prescribed for the last 7 days. has last PT tomorrow, 08/10/2023, unable able to do last 3 weeks, x1 d/t , x2 d/t elevated BP. Patient is planning on come to her appt. 08/11/2023. Isha Wright LPN [facility]06-[facility] Telephone encounter Note* Telephone Encounter - Amos Floyd MD - 08/08/2023 2:42 PM EDT PT not done due to high blood pressure. Patient did not read [place] message 07/18. Clarify with patient what she is taking for hypertension. Further instructions to follow. Keep appointment this week. [facility]06-12-[facility]24 NoteHNO ID: [id number] Author: KOLE EL PT Service: ? Author Type: Physical Therapist Type: Progress Notes Filed: 08/02/2023 09:48 Note Text: Episode Visit Count: 14 Therapist That Will Accept/Oversee The Plan Of Care: Kole El PT, DPT. Start of Care Date: 03/28/23 Onset Date: 11/07/22 Plan of Care Certification Date: 07/05/23 Next Certification Due Date: 08/09/23 Patient Identified by Name and Date of : Yes REHABILITATION AND SPORTS THERAPY PHYSICAL THERAPY TREATMENT NOTE ASSESSMENT: Linda Peralta was unable to participate in activity/exercise this session due to continued increase in DBP despite calcium channel debo medication change. When her DBP is at an appropriate resting level - the patient will continue to benefit from ongoing skilled physical therapy to progress toward set goals. PLAN FOR NEXT VISIT: NH. SUBJECTIVE: Patient reports starting to take amlodipine 2.[address] Donaldo MD. BP readings have been higher in the morning recently. Has been helping with vacation bible school recently. Continuing to mow and complete phys. activities as tolerated. Notes light fatigue continued. Reports based off conditioning/weakness she feels 75-80%. Pain: Pain Pain Level: 0 OBJECTIVE MEASURES WITH LEVEL OF FUNCTION: Vitals BP: 155/100 (Right when entering clinic upon sitting.) Pulse: 77 Pre BP: 163/104 (2nd Reading.) Intra BP 1: 164/108 (Leaving Appt.) TREATMENT: Self-Halfway Management: 1: *Subjective assessment taken, discussed patient's overall progress; BP readings taken and given time for adjustments. 2: *Discussed recent Calcium Channel Debo medication change; re-discussed clinic guidelines for BP and why exercise/activity is contraindicated with >100mmHg DBP at resting. Skilled Intervention: Skilled judgment in the selection of proper modification for activity of daily living/home management based on clinical presentation, deficits, and needs. Reviewed patient specific diagnosis in relation to activities of daily living/home management. Activity progression based on professional judgement. Billing Self-Care/Home Management Treatment Minutes: 14 Skilled Treatment Time Minutes (timed and untimed codes): 14 Total Session Time (minutes): 14 Session Start Time : 917 Session Stop Time : 931 Kole El [facility]06-[facility] History of Present illness Narrative* Kole El, PT - 08/02/2023 8:46 AM EDT Episode Visit Count: 14 Therapist That Will Accept/Oversee The Plan Of Care: Kole El PT, DPT. Start of Care Date: 03/28/23 Onset Date: 11/07/22 Plan of Care Certification Date: 07/05/23 Next Certification Due Date: 08/09/23 Patient Identified by Name and Date of : Yes REHABILITATION AND SPORTS THERAPY PHYSICAL THERAPY TREATMENT NOTE ASSESSMENT: Linda Peralta was unable to participate in activity/exercise this session due to continued increase in DBP despite calcium channel debo medication change. When her DBP is at an appropriate resting level - the patient will continue to benefit from ongoingskilled physical therapy to progress toward set goals. PLAN FOR NEXT VISIT: NH. SUBJECTIVE: Patient reports starting to take amlodipine 2.[address] Donaldo MD. BP readings have been higher in the morning recently. Has been helping with vacation bible school recently.Continuing to mow and complete phys. activities as tolerated. Notes light fatigue continued. Reports based off conditioning/weakness she feels 75-80%. Pain: Pain Pain Level: 0 OBJECTIVE MEASURES WITH LEVEL OF FUNCTION: Vitals BP: 155/100 (Right when entering clinic upon sitting.) Pulse: 77 Pre BP: 163/104 (2nd Reading.) Intra BP 1: 164/108 (Leaving Appt.) TREATMENT: Self-Halfway Management: 1: *Subjective assessment taken, discussed patient's overall progress; BP readings taken and given time for adjustments. 2: *Discussed recent Calcium Channel Debo medication change; re-discussed clinic guidelines for BP and why exercise/activity is contraindicated with >100mmHg DBP at resting. Skilled Intervention: Skilled judgment in the selection of proper modification for activity of daily living/home management based on clinical presentation, deficits, and needs. Reviewed patient specific diagnosis in relation to activities of daily living/home management. Activity progression based on professional judgement. Billing Self-Care/Home Management Treatment Minutes: 14 Skilled Treatment Time Minutes (timed and untimed codes): 14 Total Session Time (minutes): 14 Session Start Time : 917 Session Stop Time : 931 Kole El PT [facility] History of Present illness Narrative* Kole El PT - 07/19/2023 9:07 AM EDT Episode Visit Count: 13 Therapist That Will Accept/Oversee The Plan Of Care: Kole El PT, DPT. Start of Care Date: 03/28/23 Onset Date: 11/07/22 Plan of Care Certification Date: 07/05/23 Next Certification Due Date: 08/09/23 Patient Identified by Name and Date of : Yes REHABILITATION AND SPORTS THERAPY PHYSICAL THERAPY TREATMENT NOTE ASSESSMENT: Linda Peralta was unable to participate/exercise in the PT session due to high BP readings (diastolic) being outside clinic guidelines for activity. Patients primary providers were messaged regarding this situation. Clinic Guidelines are as follows... BP Guidelines Terminate Activity Resting SBP >200 or DBP <80....... Resting DBP >100mmHg. BP over 140/90 must be rechecked same visit. The patient will continue to benefit from ongoing skilled physical therapy to progress toward set goals. PLAN FOR NEXT VISIT: PT to reach out to primary providers regarding BP situation; when exercise is appropritate -- reassess functional performance/outcome measure testing since not able to complete last visit; hip flexion strengthening. SUBJECTIVE: Pt. reports she believes her BP this a.m. was 153/93; reports 2 weeks ago she tried to see [facility] but reports the physician wasn't there and was rescheduled 07/26/23 @2pm. Patient reports she stopped taking a medication prescribed to her (she doesn't know the name off hand) because it was making her BP reading to high - states her PCP and [facility] are not aware of this. Pain: Not Assessed this visit. OBJECTIVE MEASURES WITH LEVEL OF FUNCTION: Vitals BP: 164/108 (Resting.) Pulse: 85 Pre BP: 163/117 (12 Minutes into appt after sitting and discussing BP and medications.) Intra BP 1: 170/116 (Leaving Appt.) TREATMENT: Self-Halfway Management: 1: *Subjective assessment taken, BP readings taken. 2: *Continued general discussion regarding medication changes for the patient. 3: *Discussed contraindications about exercise/activity with her current BP readings and high diastolic; discussed clinic guidelines for BP. discussed PT will reach out to primary providers regardingthe current situation. 4: *Discussed high diastolic blood pressure, risks involved and symptoms to be aware of. Skilled Intervention: Skilled judgment in the selection of proper modification for activity of daily living/home management based on clinical presentation, deficits, and needs. Reviewed patient specific diagnosis in relation to activities of daily living/home management. Activity progression based on professional judgement. Billing Self-Care/Home Management Treatment Minutes: 20 Skilled Treatment Time Minutes (timed and untimed codes): 20 Total Session Time (minutes): 20 Session Start Time : 0900 Session Stop Time : 09 Kole El PT [facility] History of Present illness Narrative* Kole El, PT - 07/05/2023 9:47 AM EDT Images from the original note were not included. Episode Visit Count: 12 Therapist That Will Accept/Oversee The Plan Of Care: Kole El PT, DPT. Start of Care Date: 03/28/23 Onset Date: 11/07/22 Plan of Care Certification Date: 07/05/23 Next Certification Due Date: 08/09/23 Patient Identified by Name and Date of : Yes REHABILITATION AND SPORTS THERAPY PHYSICAL THERAPY PROGRESS REPORT PLAN OF CARE UPDATE: Assessment: Decreased visit physical activity this date due to patient having higher BP readings and her resting diastolic reading being higher than clinic guidelines to complete exercise (see vitals below). Clinic guidelines are as follows: BP Guidelines Terminate Activity Resting SBP >200 or DBP <80....... Resting DBP >100mmHg. BP over 140/90 must be rechecked same visit. Linda Peralta demonstrates improvements in walking; walking in the community; physical activities; recreational activities; stair negotiation and rising from a chair . She has progressed toward goals.Patient continues to present with impairments in ADL's, independence in exercise, strength, and symptom management that interfere with (Lifting Legs into Car, Getting up from the ground/kneeling; intermittently needs to use UEs to assist rise from chair; has not been able to return to mowing yet.) . Current prognosis is Good due to: current objective clinical presentation, positive past response to therapy, within-session changes, good support system/ coping skills . She will benefit from continued skilled therapy services to meet the updated goals for this plan of care as noted below. Updated 05/31/23 & 07/05/23. Goals for Episode of Care: created on 03/28/23 through 08/09/23 [place] in home exercise program.-- Met continue to monitor Patient will decrease pain rating by 2 points to meet minimal clinical important difference for numeric pain rating scale.-- Met, continue to monitor Patient will demonstrate increase in BLE strength to 4+ to 5/5 (abdoulaye. Hip flexors & hip ABD) during manual muscle testing in order to improve function for basic self-care tasks, home management tasks, prior functional tasks, and light functional tasks.-- (progressing towards). Improve gait mechanics for ability tp return to leisure / recreation exercise.-- (progressing towards). Improve stair ascending negotiation without report of symptoms/pain in 6 weeks.-- (progressing towards). NEW GOALS (Added 05/31/23). Improve score on Timed Up and Go Test to <10.5 seconds to reflect decreased fall risk. (Unable to assess 07/05/23 due to higher DBP limiting PT activity this date) Improve score on 30 Second Chair Stand to >11 repetitions to reflect decreased fall risk. (Unable to assess 07/05/23 due to higher DBP limiting PT activity this date) Improve performance on 4 Stage Balance Test to >7 for tandem and at least >3 seconds for B SLS to reflect decreased fall risk. (Unable to assess 07/05/23 due to higher DBP limiting PT activity this date) Patient Goals: Reduce pain; improve movement; get back to PLOF. Planned Interventions, Frequency, and Duration: 1x/week, 5 weeks Total Number of Visits Planned: 5 Patient to be seen for Therapeutic exercise (58763), Neuromuscular re-education (74310), Manual therapy (77223), Self-fdc management (51431), Therapeutic activities (19841), Gait Training (99019), Patient/Family/Caregiver Education, General Conditioning PLAN FOR NEXT VISIT: Assess how BP has been; reassess functional performance/outcome measure testing since not able to complete last visit; hip flexion strengthening. SUBJECTIVE: Patient reports going into town without her SPC a couple days ago, no issues at all. Reports DR. chun yesterday, had some medication mg changes overall. They decreased Midodrine HCL 2.5MGto only take half. Notes Calcium is still on the lower side, they want her to increase protein intake. Functional Limitations: (Lifting Legs into Car, Getting up from the ground/kneeling; intermittentlyneeds to use UEs to assist rise from chair; has not been able to return to mowing yet.) Pain: Pain Pain Level: 0 Post Treatment Pain Post Treatment Pain Level: 0 PROMIS Scales 06/28/2023 06/14/2023 05/31/2023 Higher is Better Phys Func - Score 44 (mild dysfunction) 38 (moderate dysfunction) Phys Func - Percentile 27 12 Self-Eff Symptom - Score 45 (Average) Self-Eff Symptom - Percentile 31 T-scores: mean of general population = 50. 5 points is clinically meaningfully difference Percentiles provide an indication of how the patient's score ranks in relation to the general population. Higher percentile rankings indicate better function/quality of life. 50th percentile is the average of the general population and indicates half of respondents had a worse score. OBJECTIVE MEASURES WITH LEVEL OF FUNCTION: LE Strength R LE Strength: Grossly 4+/5 L LE Strength: Grossly 4+/5 R Hip Extension: 4/5 R Hip Flexion (L2): 4-/5 R Hip ABduction: 4-/5 L Hip Extension: 4/5 L Hip Flexion (L2): 4-/5 L Hip ABduction: 4-/5 Vitals BP: 170/115 (Measured 3 times automatically and then once manually with measurements around the same.) Pulse: 92 Pre BP: 180/118 (Following MMT.) Intra BP 1: 170/114 (Leaving) TREATMENT: Therapeutic Exercise: 1: Warm Up on SCI-FIT: 6 Minutes (Vitals and Subjective Taken: Direct 1:1.) 2: *Discussed BP readings this date and taken several times both automatically and manually with different UEs; discussed the [facility] clinic guidelines for BP and physical activity. Discussed resting DBP over clinic recommendations and that being the rationale to withhold further physical activity this date. Red flags discussed and patient declines all. Advised patient to seek medical attention if any symptoms arise the rest of the day. 3: *Discussed treatment options moving forward and what sessions will consist. Rationale for suggested POC. Skilled Intervention: Patient was educated in proper exercise technique and purpose for exercises. Therapeutic Interventions and Functional Performance Testing was withheld this date due to increased BP readings during resting above clinic guidelines for physical activity. Self-Halfway Management: 1: *Progress check & subjective assessment conversation about improvements and limitations remaining. 2: *General discussion regarding medication changes for the patient. Skilled Intervention: Skilled judgment in the selection of proper modification for activity of daily living/home management based on clinical presentation, deficits, and needs. Reviewed patient specific diagnosis in relation to activities of daily living/home management. Activity progression based on professional judgement. Billing Therapeutic Exercise Treatment Minutes: 24 Self-Care/Home Management Treatment Minutes: 6 Skilled Treatment Time Minutes (timed and untimed codes): 30 Total Session Time (minutes): 30 Session Start Time : 944 Session Stop Time : 1015 Kole El PT [facility] History of Present illness Narrative* Amos Floyd MD - 06/30/2023 9:49 AM EDT This note was created using [employer]. Subjective Linda Peralta is a 78 year old female was here with her daughter. She started having issues with hypercalcemia and weakness 05/14. Her shoe reconditioner sent her to the ED for IV hydration, and she was treated with IV Zometa. She came here 05/23/23 for follow up and due to persistent critical hypercalcemia was referred back to the ER. She was transferred to where she was treated with IVF, calcitonin, steroids and cephalexin for uti. She was discharged home 05/25. She was found hypotensive here 05/31/23 and we started midodrine 2.5 mg BID which helped. She developed chest pains 06/07-06/12 where she was worked up for non STEMI. Troponins normalized. Stress test and echo were unremarkable. She impr yuniel and was discharged to home. She will need labs done here for her endocrinology follow up Cardiology follow up was scheduled,but patient has a local cardiology group here. Review of Systems Constitutional: Positive for activity change and fatigue. Negative for appetite change and fever. HENT: Negative. Respiratory: Negative for cough and shortness of breath. Cardiovascular: Negative for chest pain, palpitations and leg swelling. Gastrointestinal: Negative for diarrhea, nausea and vomiting. Genitourinary: Negative for difficulty urinating. Musculoskeletal: Negative. Neurological: Negative for dizziness and headaches. Psychiatric/Behavioral: Negative for confusion. 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 Ashd (Arteriosclerotic Heart Disease) Dvt (Deep Venous Thrombosis) (Hcc) Chronic Nonallergic Rhinitis Pure hypercholesterolemia Atopic Neurodermatitis Hypertension Stage 3b Chronic Kidney Disease (Hcc) Hypertensive Kidney Disease With Stage 3b Chronic Kidney Disease (Hcc) Age-Related Osteoporosis With Current Pathological Fracture With Routine Healing Closed Displaced Fracture of Fifth Metatarsal Bone of Right Foot Gait Abnormality Physical Deconditioning Weakness Nstemi (Non-St Elevated Myocardial Infarction) (Hcc) Adrenal Insufficiency (Hcc) Nonrheumatic Aortic Valve Stenosis Current Outpatient Medications Medication Sig hydrocortisone (CORTEF) 20 mg tablet Take 1 tablet by mouth two times a day for 6 days. hydrocortisone (CORTEF) 10 mg tablet Take 2 tablets by mouth once daily. As directed per endocrinology. Patient should start on June 20, 2023. hydrocortisone (CORTEF) 10 mg tablet Take 1 tablet by mouth daily at bedtime. Patient should start on June 20, [address]. pantoprazole DR (PROTONIX) 40 mg tablet Take 1 tablet by mouth daily at 6 am. midodrine (PROAMATINE) 2.5 mg tablet Take one tablet by mouth twice a day four hours apart. Avoid laying down flat for at least 4 hours after taking. Do not take less than four hours before bedtime simvastatin (ZOCOR) 20 mg tablet Take 1 tablet by mouth daily at bedtime. nitroglycerin sublingual (NITROQUICK) 0.4 mg SL tablet Dissolve 1 tablet under the tongue every 5 minutes as needed. denosumab (PROLIA) 60 mg/mL Inject 60 mg subcutaneously once every [address] Torsten Vann, endocrinology. Due mid-June warfarin (COUMADIN) 2.5 mg tablet Take 2.5 mg by mouth. 2.5 mg daily except 5 mg on Mondays acetaminophen (TYLENOL) 325 mg tablet Take 650 mg by mouth every 6 hours as needed. No current facility-administered medications for this visit. Objective BP 164/100 (BP Site: Left Arm, BP Position: Sitting, BP Cuff Size: Regular Adult) Pulse 78 Resp16 Wt 63.5 kg (140 lb) BMI 25.61 kg/m Physical Exam Constitutional: General: She is not in acute distress. Appearance: She is not ill-appearing. HENT: Head: Normocephalic. Eyes: Conjunctiva/sclera: Conjunctivae normal. Cardiovascular: Heart sounds: S1 normal and S2 normal. Murmur heard. Systolic murmur is present with a grade of 2/6. Comments: Base murmur. Pulmonary: Effort: No respiratory distress. Breath sounds: No wheezing or rales. Abdominal: General: There is no distension. Palpations: Abdomen is soft. Tenderness: There is no abdominal tenderness. Musculoskeletal: Right lower leg: No edema. Left lower leg: No edema. Neurological: General: No focal deficit present. Mental Status: She is alert and oriented to person, place, and time. Comments: Using a cane. Assessment and Plan 1. Hypercalcemia - ICD9: 275.42, ICD10: E83.52 (primary diagnosis) Follow up with [facility]ocr[facility]ology at [facility]. Labs ordered to facilitate and CC'd - COMPREHENSIVE METABOLIC PANEL - PTH INTACT - CALCIUM, IONIZED - PHOSPHORUS INORGANIC - VITAMIN D 25 HYDROXY 2. Age-related osteoporosis with current pathological fracture with routine healing - ICD9: V54.29,733.01, ICD10: M80.00XD - continue tx with denosumab (Prolia) per endocrinology. - COMPREHENSIVE METABOLIC PANEL - PTH INTACT - CALCIUM, IONIZED - PHOSPHORUS INORGANIC - VITAMIN D 25 HYDROXY - MISC SEND OUT TST 1 3. Hypokalemia - ICD9: 276.8, ICD10: E87.6 - CORTISOL, SERUM 4. Adrenal hypofunction (HCC) - ICD9: 255.41, ICD10: E27.40 - CORTISOL, SERUM 5. NSTEMI (non-ST elevated myocardial infarction) (HCC) - ICD9: 410.70, ICD10: I21.4 Follow up today with [facility]. 6. ASHD (arteriosclerotic heart disease) - ICD9: 414.00, ICD10: I25.10 See above. 7. Nonrheumatic aortic valve stenosis - ICD9: 424.1, ICD10: I35.0 Monitored per cardiology. Amos Floyd MD [facility] History of Present illness Narrative* Kole El, PT - 06/28/2023 11:24 AM EDT Episode Visit Count: 11 Therapist That Will Accept/Oversee The Plan Of Care: Kole El, PT, DPT. Start of Care Date: 03/28/23 Onset Date: 11/07/22 Plan of Care Certification Date: 05/31/23 Next Certification Due Date: 07/05/23 Patient Identified by Name and Date of : Yes REHABILITATION AND SPORTS THERAPY PHYSICAL THERAPY TREATMENT NOTE ASSESSMENT: Linda Peralta tolerated the session with expected muscle soreness and no issues. She demonstrated difficulty with gait during R-Handed Unilateral Suitcase carries, L-Handed was normal. The patient will continue to benefit from ongoing skilled physical therapy to progress toward set goals. PLAN FOR NEXT VISIT: Progress Check. SUBJECTIVE: Patient reports improvement overall, notes steps are easier as well.; sees Dr. Floyd and Cardiac Monday and Endocrine next Monday. Notes Pain: Pain Pain Level: 0 Post Treatment Pain Post Treatment Pain Level: 0 OBJECTIVE MEASURES WITH LEVEL OF FUNCTION: Vitals BP: 144/96 (At beginning of session.) Pulse: 85 Pre Assessment: BP Pre BP: 169/104 (After treadmill walking. - 4 Minute Break - 168/89, HR 87.) Intra Assessment 1: (BP Leaving Appt.) Intra BP 1: 164/98 (90 HR) TREATMENT: Therapeutic Exercise: 1: Warm Up on SCI-FIT: 5 Minutes (Vitals and Subjective Taken: Direct 1:1.) 2: Incline Treadmill Walking for cardiovacular endurance: MPH 1.0, incline 8%, 4 Minutes. (Patient getting fatigued at 3 Min, HR at 117.) 3: Goblet STS: 3x10, 5#kb. 4: Retro Hoist Walkinx10, 1 Plate. 5: Unilateral Suitcase Carries: 3 Laps of 60 Feet, 10#KB in one hand (6 Total). Skilled Intervention: Patient was educated in proper exercise technique and purpose for exercises. Skilled judgment was used in selection of appropriate interventions. Correct performance of therapeutic exercises was facilitated with verbal, visual, and tactile cuing. Billing Therapeutic Exercise Treatment Minutes: 39 Skilled Treatment Time Minutes (timed and untimed codes): 39 Total Session Time (minutes): 39 Session Start Time : 1123 Session Stop Time : 1202 Kole El PT documented in this encounterR[facility] History of Present illness Narrative* Kole El, PT - 06/21/2023 1:42 PM EDT Program_ID:[id number] Access Code: [email or web address] URL: [email or web address] Date: 06-21-2023 Prepared By: Kole El Program Notes Exercises - Mini Squat with Counter Support - 2 x daily - 5 x weekly - 2 sets - 10 reps - Standing Hip Abduction with Counter Support - 2 x daily - 5 x weekly - 2 sets - 10 reps - Seated Long Arc Quad with Ankle Weight - 2 x daily - 5 x weekly - 2 sets - 10 reps - Heel Toe Raises with Counter Support - 2 x daily - 5 x weekly - 2 sets - 10-15 reps - Seated Hip Abduction with Resistance - 2 x daily - 5 x weekly - 2 sets - 10 reps - Seated Hip Adduction Isometrics with Ball - 2 x daily - 5 x weekly - 2 sets - 10 reps - Standing March with Counter Support - 1-2 x daily - 5 x weekly - 2 sets - 10 reps * Kole El, PT - 06/21/2023 1:05 PM EDT Episode Visit Count: 10 Therapist That Will Accept/Oversee The Plan Of Care: Kole El PT, DPT. Start of Care Date: 03/28/23 Onset Date: 11/07/22 Plan of Care Certification Date: 05/31/23 Next Certification Due Date: 07/05/23 Patient Identified by Name and Date of : Yes REHABILITATION AND SPORTS THERAPY PHYSICAL THERAPY TREATMENT NOTE ASSESSMENT: Linda Peralta tolerated the session with expected muscle soreness and no issues. She demonstrated difficulty with L Step Ups compared to R. The patient will continue to benefit from ongoing skilled physical therapy to progress toward set goals. PLAN FOR NEXT VISIT: Closed chain LE strengthening; continue improving endurance; trial low speed incline treadmill walking. SUBJECTIVE: Patient states she is doing good today, no new issues. States INR reading at the start of the week was 2.0 Pain: Pain Pain Level: 0 Pain Location: Leg - Left, Leg - Right Description: (Legs feel weak.) Post Treatment Pain Post Treatment Pain Level: 0 OBJECTIVE MEASURES WITH LEVEL OF FUNCTION: Vitals BP: 150/99 Pulse: 86 Pre Assessment: BP Pre BP: 144/97 (After Sci-Fit Warm-up:: 73bpm.) Intra Assessment 1: BP Intra 1 Intra BP 1: 152/98 (After FWD StepUps:: 86bpm.) Intra Assessment 2: BP Intra 2 Intra BP 2: 163/100 (After lateral step-ups;: 86bpm.) 151/96mmHg - 88bpm. Leaving session. TREATMENT: Therapeutic Exercise: 1: Warm Up on SCI-FIT: 6 Minutes (Vitals and Subjective Taken: Direct 1:1.) 2: 6 Fwd Stepups: 2x12 ea. leg. 3: 4 Lateral Stepups: 2x8, LLE, 2x10 RLE. 4: Standing Marches: 2x10 ea. 5: Roff Carries: 2 Laps of 60 Feet, 8#db ea. hand. Skilled Intervention: Patient was educated in proper exercise technique and purpose for exercises. Skilled judgment was used in selection of appropriate interventions. Correct performance of therapeutic exercises was facilitated with verbal, visual, and tactile cuing. Billing Therapeutic Exercise Treatment Minutes: 42 Skilled Treatment Time Minutes (timed and untimed codes): 42 Total Session Time (minutes): 42 Session Start Time : 1300 Session Stop Time : 1342 Kole El PT documented in this encounterR[facility]04-29-[facility]24 Telephone encounter Note * Telephone Encounter - Felisa Hannah APRN.CNP - 06/19/2023 10:44 AM EDT Please make a hospital follow up appointment to be seen by Dr. Baig or Nurse practitioner in 6-8 weeks. Thank you, Felisa Hannah APRN.TELLY [facility] Work Phone: [phone]) 138-375604-29-2024 Miscellaneous Notes* Telephone Encounter - Felisa Hannah APRN.CNP - 06/19/2023 10:44 AM EDT Please make a hospital follow up appointment to be seen by Dr. Baig or Nurse practitioner in 6-8 weeks. Thank you, Felisa Camden, ROAD ROLLER OPERATOR [employer].SPORTS TEAM MANAGER documented in this encounterR[facility]04-24-[facility]24 History of Present illness Narrative* Kole El, PT - 06/14/2023 11:15 AM EDT Episode Visit Count: 9 Therapist That Will Accept/Oversee The Plan Of Care: Kole El, PT, DPT. Start of Care Date: 03/28/23 Onset Date: 11/07/22 Plan of Care Certification Date: 05/31/23 Next Certification Due Date: 07/05/23 Patient Identified by Name and Date of : Yes REHABILITATION AND SPORTS THERAPY PHYSICAL THERAPY TREATMENT NOTE ASSESSMENT: Linda Peralta tolerated the session with decreased activity tolerance due to fatigue from recent hospital admission. She demonstrated difficulty with [id number]. The patient will continue to benefit from ongoing skilled physical therapy to progress toward set goals. PLAN FOR NEXT VISIT: Gross LE Strengthening; Endurance and Conditioning following hospital admission; take vitals throughout. SUBJECTIVE: Patient reports hospital admission at [facility] for cardiac issues/NSTEMI, also found with UTI and hypercalcemia. Was on Heparin in the hospital. Was admitted in [facility] since last 06/08/23. Physicians have since released her and stated to continue physical activity as able. States she is now on a protein diet. States taking BP today 138/83 this a.m. Pain: Pain Pain Level: 0 Post Treatment Pain Post Treatment Pain Level: 0 OBJECTIVE MEASURES WITH LEVEL OF FUNCTION: Decreased eccentric control down to chair from [id number]. Vitals BP: 157/106 (Initial.) Pulse: 87 SpO2: 98 % Additional Vitals: Yes Pre Assessment: BP Pre BP: 169/104 (84bpm. After Step-Ups.) Intra Assessment 1: BP Intra 1 Intra BP 1: 174/104 (After Bri-du-Cktaec; ended session following.) Intra Assessment 2: BP Intra 2 Intra BP 2: 154/104 (BP before leaving.) TREATMENT: Therapeutic Exercise: 1: Warm Up on SCI-FIT: 6 Minutes (Vitals and Subjective Taken: Direct 1:1.) 2: 6 Fwd Stepups: 2x12 ea. leg. 3: 6 Lateral Stepups: 2x12 ea. 4: Chair Mlz-zb-nopztz: 2x5. (Patient required assist from 2 UEs to stand, 1 UE to sit with control; CGA throughout.) 5: Increased rest breaks this date with vitals taken due to recent NSTEMI and BP issues. Skilled Intervention: Patient was educated in proper exercise technique and purpose for exercises. Skilled judgment was used in selection of appropriate interventions. Correct performance of therapeutic exercises was facilitated with verbal, visual, and tactile cuing. Billing Therapeutic Exercise Treatment Minutes: 40 Skilled Treatment Time Minutes (timed and untimed codes): 40 Total Session Time (minutes): 40 Session Start Time : 1115 Session Stop Time : 1155 Kole El PT documented in this encounterRiverside [facility]04-22-2024 NoteHNO ID: [id number] Author: CHRISTELLE PHILLIPS RPh Service: Pharmacy Author Type: Pharmacist Type: Plan of Care Filed: 06/12/2023 15:49 Note Text: PHARMACY MEDICATION REVIEW Patient Name: Lnida Peralta : 1945 The following medications were updated within the [employer] medication list: Medications ADDED to [employer] medication list N/a Medications CHANGED on [employer] medication list Warfarin dose recently changed to 2.5 mg daily except 5 mg on Mondays Medications REMOVED from [employer] medication list Flonase Additional comments: N/A The below information represents the best possible medication history: Yes Medication history completed by: Pharmacist: Christelle Phillips RPh Source of history: Patient: Reliability of source: Appears reliable, clearly identified: Medication name, Medication dose, and Medication frequency Medication nonadherence identified: No barriers noted Reconciliation completed: Yes Completed by: ISABELA All [employer] medications addressed by ISABELA Patient interested in Bedside Delivery Services or using [facility] at discharge? Unable to assess Preferred outpatient pharmacy: [facility] [address] [place] [address] [address] - [phone] e- [facility] [address] [facility] [phone] [facility] [place] [address] [address] [facility] [address] - [phone] [address] [facility] [place] [address] [address] [facility] [phone] Allergies: Cipro [Ciprofloxaci* Comment:rash with 500mg dose Penicillins Comment:rash Prior to Admission Medications Prescriptions Last Dose Informant Patient Reported? Taking? acetaminophen (TYLENOL) 325 mg tablet Yes Yes Sig: Take 650 mg by mouth every 6 hours as needed. denosumab (PROLIA) 60 mg/mL Yes Yes Sig: Inject 60 mg subcutaneously once every [address] Torsten Vann, endocrinology. Due mid-June hydrocortisone (CORTEF) 10 mg tablet Yes Yes Sig: Take 10 mg by mouth two times a day. As directed per endocrinology. midodrine (PROAMATINE) 2.5 mg tablet No Yes Sig: Take one tablet by mouth twice a day four hours apart. Avoid laying down flat for at least 4 hours after taking. Do not take less than four hours before bedtime nitroglycerin sublingual (NITROQUICK) 0.4 mg SL tablet No Yes Sig: Dissolve 1 tablet under the tongue every 5 minutes as needed. simvastatin (ZOCOR) 20 mg tablet No Yes Sig: Take 1 tablet by mouth daily at bedtime. warfarin (COUMADIN) 2.5 mg tablet Yes Yes Sig: Take 2.5 mg by mouth. 2.5 mg daily except 5 mg on Mondays Facility-Administered Medications: None Christelle Phillips, [facility] 06/12/2023[facility]04-22-2024 NoteHNO ID: [id number] Author: BERNARDINO ZAMORA RN Service: Nursing Author Type: Registered Nurse Type: Nursing Progress Note Filed: 06/12/2023 13:41 Note Text: Pt returned to the floor from NM stress test.[facility] 06-12-2023 NoteHNO ID: [id number] Author: EUGENIE LANGSTON DO Service: Hospital Medicine Author Type: Physician Type: Progress Notes Filed: 06/12/2023 13:09 Note Text: DEPARTMENT OF HOSPITAL MEDICINE PROGRESS NOTE SERVICE DATE: 06/12/2023 SERVICE TIME: 1:06 PM Hospital Medicine/Primary Attending: Eugenie Langston DO NIGHT AND WEEKEND COVERAGE: [employer] COVERAGE: After 7pm, please call cross cover pager #[phone] Subjective INTERVAL HPI: No chest pain. No events overnight. Stress test today Current Facility-Administered Medications Medication Dose Route Frequency midodrine 2.5 mg tab(s) (PROAMATINE) 2.5 mg ORAL TID (q 4 H) simvastatin 20 mg tab(s) (ZOCOR) 20 mg ORAL AT BEDTIME NaCl 0.9% iv flush bag 20 mL INTRAVENOUS PRN cefTRIAXone iv piggyback 1 g in dextrose (iso-osmotic) 50 mL (ROCEPHIN) 1 g INTRAVENOUS q 24 H heparin iv infusion 25,000 units in NaCl 0.45% 250 mL LOW DOSE/ACS NOMOGRAM 0-3,000 Units/hr INTRAVENOUS CONTINUOUS And heparin RATE CHANGE bolus 1,000-4,000 Units for subtherapeutic PTTAC results 1,000-4,000 Units INTRAVENOUS PRN ondansetron (PF) 4 mg injection (ZOFRAN) 4 mg INTRAVENOUS q 6 H PRN acetaminophen 650 mg tab(s) (TYLENOL) 650 mg ORAL q 4 H PRN polyethylene glycol 3350 17 g packet 17 g ORAL DAILY PRN sodium chloride 0.9 % (flush) 2-10 mL (BD POSIFLUSH) 2-10 mL INTRAVENOUS DIRECTED PRN And perflutren lipid microspheres 1.1 mg/mL 1.3 mL injection (DEFINITY) 1.3 mL INTRAVENOUS DIRECTED PRN pantoprazole DR 40 mg tab(s) (PROTONIX) 40 mg ORAL DAILY (6 AM) hydrocortisone 20 mg tab(s) (CORTEF) 20 mg ORAL BID PC Objective PHYSICAL EXAM: BP 144/91 Pulse 72 Temp (Src) 97.5 (Oral) Resp 18 Ht 5' 2 (1.58m) Wt 144 lb 13.5 oz (65.7kg) SpO2 96% BMI 26.49 kg/(m2). O2 Therapy: Room Air Physical Exam Performed General: NAD, well developed, vitals as above HENT: Normocephalic, atraumatic, mucous membranes moist Eyes: No scleral icterus, extraocular movements intact, Conjuctivae normal, PERRL Cardiovascular: RRR, No murmur, no gallops, radial pulses 2+ bilaterally, no edema Pulmonary: Respiratory effort normal, no resp distress. CTAB, no wheezes, rhonchi or rales. Abdominal: No distention, abdomen soft. No mass. Nontender to palpation MSK: normal range of motion, no joint swelling Skin: Warm and dry Neurological: No focal deficits presents. CN 2-12 grossly intact. Psych: Alert, oriented x 3, appropriate mood Lines, Drains, and Airways Line Duration Peripheral 06/08/231999 [facility] Short Left Forearm 22 Gauge 3 days Peripheral 06/09/23 001 [facility] Short Right Forearm 20 Gauge 3 days DATA: Diagnostic tests reviewed for today's visit: Most recent labs Assessment/Plan Problem List NSTEMI (non-ST elevated myocardial infarction) (HCC) (POA: Yes) Adrenal hypofunction (HCC) (POA: Yes) Hypercalcemia (POA: Yes) Stage 3b chronic kidney disease (HCC) (POA: Yes) Adrenal insufficiency (HCC) (POA: Status not on file) HOSPITAL COURSE: Linda Peralta is a 78 year old female presented with past medical history of HLD, CAD, HTN Principal Problem: NSTEMI (non-ST elevated myocardial infarction) (HCC) Assessment AND Plan: Continue heparin drip. Tele. Cardiology consulted. 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 Had endocrinology consult last admission. Will get endocrinology on board given that her Calcium increased again and up to 13.7 shortly after last discharge Appreciate endocrinology's input - Check thyroid, BIMAL level, serum/urine protein analyses, vitamin A Granulomatous/inflammatory disease? Based on how quickly Ca rebound Treatment of Xgeva recommended She will need labs every couple of weeks Medication and Non-Pharmacologic VTE Prophylaxis/Anticoagulants Anticoagulant AND Antiplatelet Medications (From admission, onward) Start Dose Route Frequency Last Action Ordered Stop 06/09/23 0100 heparin iv infusion 25,000 units in NaCl 0.45% 250 mL LOW DOSE/ACS NOMOGRAM (Heparin Infusion + Bolus for Subtherapeutic PTTAC) 0-30 mL/hr See [facility] for full Linked Orders Report. 0-3,000 Units/hr INTRAVENOUS CONTINUOUS Rate Verify, 06/11 0606/09/23 0036 -- VTE Prophylaxis: VTE prophylaxis appropriate Disposition: Home Plan of care discussed with Provider, RN, Patient SIGNATURE: Eugenie Langston DO PATIENT NAME: Linda Peralta MRN: [id number] (more content not included)...[facility]04-22-2024 NoteHNO ID: [id number] Author: JOE MAE RT(R) Service: Nuclear Medicine Author Type: Technologist Type: Progress Notes Filed: 06/12/2023 10:02 Note Text: RADIOLOGY SERVICE PROGRESS NOTE SERVICE DATE: 06/12/2023 SERVICE TIME: 9:58 AM PATIENT IDENTITY VERIFICATION COMPLETED USING TWO (2) STANDARD IDENTIFIERS: Name and Date of confirmed by patient verbally FALL SCREENING: Has the patient had 2 falls in the last year or 1 fall with injury or currently using an Ambulatory Assistive Device (Walker, Cane, Wheelchair, Crutches, etc.)? No PATIENT GENDER DATA: .female : No ALLERGIES: Reviewed and updated MEDICATIONS REVIEWED: Yes 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 CREATININE: Creatinine Date Value Ref Range Status 06/12/2023 1.65 (H) 0.58 - 0.96 mg/dL Final 06/11/2023 1.73 (H) 0.58 - 0.96 mg/dL Final 06/10/2023 1.73 (H) 0.58 - 0.96 mg/dL Final Estimated Glomerular Filtration Rate Date Value Ref Range Status 06/12/2023 31 (L) >=60 mL/min/1.73m? Final Comment: Estimated Glomerular Filtration Rate (eGFR) is calculated using the 2020 CKD-EPI creatinine equation. This equation utilizes serum creatinine, sex, and age as parameters. The creatinine assay has traceable calibration to isotope dilution-mass spectrometry. Refer to KDIGO guidelines for clinical interpretation. In patients with unstable renal function, e.g. those with acute kidney injury, the eGFR may not accurately reflect actual GFR. eGFR- Date Value Ref Range Status 06/09/2020 44 Final P.O.C.T. RESULTS: N/A June 12, [address] PERFORMED: No IV SITE: Inpatient - refer to [facility] documentation POST EXAM PIV STATUS: Left in for next appointment PROCEDURE TYPE: NM Stress: 13.3 mCi [id number] was administered IV for Rest Imaging at 845 by ty. 35.6 mCi [id number] was administered IV for Stress Imaging at 1000 by ty. ADMINISTRATION TIME: 845 PATIENT DISCHARGED TO: Patient taken to IP transport area for return to RNF/ICU/ED. A Diagnostic radioactive procedure has taken place, with no further precautions necessary other than routine body substance precautions. More information regarding radiation safety can be found using this link: [email or web address] SIGNATURE: RT Alexander(R) PATIENT NAME: Linda Peralta DATE: June 12, 2023 TIME: 9:58 AM PAGER/CONTACT #:[facility]04-22-2024 NoteHNO ID: [id number] Author: KRYS JOHN RN Service: Nursing Author Type: Registered Nurse Type: Nursing Progress Note Filed: 06/12/2023 09:42 Note Text: Lexiscan Nuclear Stress Test discussed with patient, voiced understanding.[facility]04-21-2024 NoteHNO ID: [id number] Author: EUGENIE LANGSTON DO Service: Hospital Medicine Author Type: Physician Type: Progress Notes Filed: 06/11/2023 07:56 Note Text: DEPARTMENT OF HOSPITAL MEDICINE PROGRESS NOTE SERVICE DATE: 06/11/2023 SERVICE TIME: 7:49 AM Hospital Medicine/Primary Attending: Eugenie Langston DO NIGHT AND WEEKEND COVERAGE: [employer] COVERAGE: After 7pm, please call cross cover pager #[phone] Subjective INTERVAL HPI: No chest pain. No events overnight. Current Facility-Administered Medications Medication Dose Route Frequency midodrine 2.5 mg tab(s) (PROAMATINE) 2.5 mg ORAL TID (q 4 H) simvastatin 20 mg tab(s) (ZOCOR) 20 mg ORAL AT BEDTIME NaCl 0.9% iv flush bag 20 mL INTRAVENOUS PRN cefTRIAXone iv piggyback 1 g in dextrose (iso-osmotic) 50 mL (ROCEPHIN) 1 g INTRAVENOUS q 24 H heparin iv infusion 25,000 units in NaCl 0.45% 250 mL LOW DOSE/ACS NOMOGRAM 0-3,000 Units/hr INTRAVENOUS CONTINUOUS And heparin RATE CHANGE bolus 1,000-4,000 Units for subtherapeutic PTTAC results 1,000-4,000 Units INTRAVENOUS PRN ondansetron (PF) 4 mg injection (ZOFRAN) 4 mg INTRAVENOUS q 6 H PRN acetaminophen 650 mg tab(s) (TYLENOL) 650 mg ORAL q 4 H PRN polyethylene glycol 3350 17 g packet 17 g ORAL DAILY PRN sodium chloride 0.9 % (flush) 2-10 mL (BD POSIFLUSH) 2-10 mL INTRAVENOUS DIRECTED PRN And perflutren lipid microspheres 1.1 mg/mL 1.3 mL injection (DEFINITY) 1.3 mL INTRAVENOUS DIRECTED PRN pantoprazole DR 40 mg tab(s) (PROTONIX) 40 mg ORAL DAILY (6 AM) hydrocortisone sodium succinate (PF) 50 mg injection (Solu-CORTEF) 50 mg INTRAVENOUS q 8 H Objective PHYSICAL EXAM: BP 124/70 Pulse 72 Temp (Src) 96.8 (Temporal) Resp 16 Ht 5' 2 (1.58m) Wt 144 lb 13.5 oz (65.7kg) SpO2 99% BMI 26.49 kg/(m2). O2 Therapy: Room Air Physical Exam Performed General: NAD, well developed, vitals as above HENT: Normocephalic, atraumatic, mucous membranes moist Eyes: No scleral icterus, extraocular movements intact, Conjuctivae normal, PERRL Cardiovascular: RRR, No murmur, no gallops, radial pulses 2+ bilaterally, no edema Pulmonary: Respiratory effort normal, no resp distress. CTAB, no wheezes, rhonchi or rales. Abdominal: No distention, abdomen soft. No mass. Nontender to palpation MSK: normal range of motion, no joint swelling Skin: Warm and dry Neurological: No focal deficits presents. CN 2-12 grossly intact. Psych: Alert, oriented x 3, appropriate mood Lines, Drains, and Airways Line Duration Peripheral 06/08/231999 [facility] Short Left Forearm 22 Gauge 2 days Peripheral 06/09/23 0015 [facility] Short Right Forearm 20 Gauge 2 days DATA: Diagnostic tests reviewed for today's visit: Most recent labs Assessment/Plan Problem List NSTEMI (non-ST elevated myocardial infarction) (HCC) (POA: Yes) Adrenal hypofunction (HCC) (POA: Yes) Hypercalcemia (POA: Yes) Stage 3b chronic kidney disease (HCC) (POA: Yes) HOSPITAL COURSE: Linda Peralta is a 78 year old female presented with past medical history of HLD, CAD, HTN Principal Problem: NSTEMI (non-ST elevated myocardial infarction) (HCC) Assessment AND Plan: Continue heparin drip. Tele. Cardiology consulted. 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 Had endocrinology consult last admission. Will get endocrinology on board given that her Calcium increased again and up to 13.7 shortly after last discharge Appreciate endocrinology's input - Check thyroid, BIMAL level, serum/urine protein analyses, vitamin A Granulomatous/inflammatory disease? Based on how quickly Ca rebound Treatment of Xgeva recommended She will need labs every couple of weeks Medication and Non-Pharmacologic VTE Prophylaxis/Anticoagulants Anticoagulant AND Antiplatelet Medications (From admission, onward) Start Dose Route Frequency Last Action Ordered Stop 06/09/23 0100 heparin iv infusion 25,000 units in NaCl 0.45% 250 mL LOW DOSE/ACS NOMOGRAM (Heparin Infusion + Bolus for Subtherapeutic PTTAC) 0-30 mL/hr See [facility] for full Linked Orders Report. 0-3,000 Units/hr INTRAVENOUS CONTINUOUS Rate/Dose Calculated - Heparin, 06/10 0603 06/09/23 0036 -- VTE Prophylaxis: VTE prophylaxis appropriate Disposition: Home Plan of care discussed with Provider, RN, Patient SIGNATURE: Eugenie Langston DO PATIENT NAME: [facility]04-20-2024 NoteHNO ID: [id number] Author: EUGENIE LANGSTON DO Service: Hospital Medicine Author Type: Physician Type: Progress Notes Filed: 06/10/2023 09:58 Note Text: DEPARTMENT OF HOSPITAL MEDICINE PROGRESS NOTE SERVICE DATE: 06/10/2023 SERVICE TIME: 7:44 AM Hospital Medicine/Primary Attending: Eugenie Langston DO NIGHT AND WEEKEND COVERAGE: [place] COVERAGE: After 7pm, please call cross cover pager #[phone] Subjective INTERVAL HPI: No chest pain. No events overnight. Trop downtrended Current Facility-Administered Medications Medication Dose Route Frequency hydrocortisone 10 mg tab(s) (CORTEF) 10 mg ORAL BID midodrine 2.5 mg tab(s) (PROAMATINE) 2.5 mg ORAL TID (q 4 H) simvastatin 20 mg tab(s) (ZOCOR) 20 mg ORAL AT BEDTIME NaCl 0.9% iv flush bag 20 mL INTRAVENOUS PRN cefTRIAXone iv piggyback 1 g in dextrose (iso-osmotic) 50 mL (ROCEPHIN) 1 g INTRAVENOUS q 24 H heparin iv infusion 25,000 units in NaCl 0.45% 250 mL LOW DOSE/ACS NOMOGRAM 0-3,000 Units/hr INTRAVENOUS CONTINUOUS And heparin RATE CHANGE bolus 1,000-4,000 Units for subtherapeutic PTTAC results 1,000-4,000 Units INTRAVENOUS PRN ondansetron (PF) 4 mg injection (ZOFRAN) 4 mg INTRAVENOUS q 6 H PRN acetaminophen 650 mg tab(s) (TYLENOL) 650 mg ORAL q 4 H PRN polyethylene glycol 3350 17 g packet 17 g ORAL DAILY PRN sodium chloride 0.9 % (flush) 2-10 mL (BD POSIFLUSH) 2-10 mL INTRAVENOUS DIRECTED PRN And perflutren lipid microspheres 1.1 mg/mL 1.3 mL injection (DEFINITY) 1.3 mL INTRAVENOUS DIRECTED PRN Objective PHYSICAL EXAM: BP 102/68 Pulse 94 Temp (Src) 98.2 (Oral) Resp 18 Ht 5' 2 (1.58m) Wt 144 lb 13.5 oz (65.7kg) SpO2 95% BMI 26.49 kg/(m2). O2 Therapy: Room Air, %FIO2: 96 Physical Exam Performed General: NAD, well developed, vitals as above HENT: Normocephalic, atraumatic, mucous membranes moist Eyes: No scleral icterus, extraocular movements intact, Conjuctivae normal, PERRL Cardiovascular: RRR, No murmur, no gallops, radial pulses 2+ bilaterally, no edema Pulmonary: Respiratory effort normal, no resp distress. CTAB, no wheezes, rhonchi or rales. Abdominal: No distention, abdomen soft. No mass. Nontender to palpation MSK: normal range of motion, no joint swelling Skin: Warm and dry Neurological: No focal deficits presents. CN 2-12 grossly intact. Psych: Alert, oriented x 3, appropriate mood Lines, Drains, and Airways Line Duration Peripheral 06/08/231999 [facility] Short Left Forearm 22 Gauge 1 day Peripheral 06/09/2314 [facility] Short Right Forearm 20 Gauge 1 day DATA: Diagnostic tests reviewed for today's visit: Most recent labs Assessment/Plan Problem List NSTEMI (non-ST elevated myocardial infarction) (HCC) (POA: Yes) HOSPITAL COURSE: Linda Peralta is a 78 year old female presented with past medical history of HLD, CAD, HTN Principal Problem: NSTEMI (non-ST elevated myocardial infarction) (HCC) Assessment AND Plan: Continue heparin drip. Check another troponin to see if peaked and now downtrending. Tele. 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 Had endocrinology consult last admission. Ongoing workup outpatient IV fluids for hypercalcemia, improving. She was nauseous with calcitonin last admission and it was stopped Will get endocrinology on board given that her Calcium increased again and up to 13.7 shortly after last discharge Medication and Non-Pharmacologic VTE Prophylaxis/Anticoagulants Anticoagulant AND Antiplatelet Medications (From admission, onward) Start Dose Route Frequency Last Action Ordered Stop 06/09/23 0100 heparin iv infusion 25,000 units in NaCl 0.45% 250 mL LOW DOSE/ACS NOMOGRAM (Heparin Infusion + Bolus for Subtherapeutic PTTAC) 0-30 mL/hr See Hyperspace for full Linked Orders Report. 0-3,000 Units/hr INTRAVENOUS CONTINUOUS Rate/Dose Calculated - Heparin, 06/09 0606 06/09/23 0036 -- VTE Prophylaxis: VTE prophylaxis appropriate Disposition: Home Plan of care discussed with Provider, RN, Patient SIGNATURE: Eugenie Langston DO PATIENT NAME: Linda Peralta DATE: June 10, 2023 TIME: 7:44 [facility]04-19-2024 NoteHNO ID: [id number] Author: EUGENIE LANGSTON DO Service: Hospital Medicine Author Type: Physician Type: Plan of Care Filed: 06/09/2023 08:47 Note Text: Troponin increasing. Cardiology consulted. Vitals stable and on heparin drip. [facility] Miscellaneous Notes* Telephone Encounter - Jorge Victoria RN - 06/08/2023 11:04 AM EDT Patient reports an episode of right side chest pressure one time this morning, that lasted about 15min. Now can feel a pressure only if takes a deep breath. Reports has had ache in right jaw and right ear for about a week. Reports feels weak. Able to stand with assistance. POX 95% HR 99. BP this morning 156/133 pulse read low, 151/91 (90), 113/79 (107). Reports not eating well, but drinking water and pedialyte and may be dehydrated. Had dizziness this morning. Has hx addisons disease and unsure if symptoms may be related to this. Protocol recommends ER. Patient agreeable. Daughter with patient and will drive patient. Reason for Disposition Pain also in shoulder(s) or arm(s) or jaw (Exception: Pain is clearly made worse by movement.) Answer Assessment - Initial Assessment Questions 1. LOCATION: Reports has hx addisons disease and currently taking hydrocortisone, prescribed by in [place]. Today dealing with CP on right side that lasted about 15 min- did not radiate. No CP pain now. Reports has mild ache in right jaw and right ear for about a week. Also having trouble s wallowing last night- able to drink water now. Was so weak unable to stand. Able to get up with help now but is shaky. 2. RADIATION: Right side CP one time this morning felt like pressure does not radiate. Can still feel it a little when she takes a breath. 3. ONSET: One time this morning. 4. PATTERN: Right side CP happended once but can still feel the pressure when takes a breath. No respiratory s/s. POX 95% HR 93. 5. DURATION: 15 min 6. SEVERITY: Mild pressure 7. 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 Hx DVTs takes coumadin. Hx murmur and weak valve. Echo done this year- results were good. 8. PULMONARY RISK FACTORS: No lung history. 9. CAUSE: No idea. 10. OTHER SYMPTOMS: Had dizziness this morning, not now. Legs are very weak- able to stand with help. Had nausea this morning- hasn't eaten yet. No sweating or chills. No SOB 11. : Post menopause. Protocols used: Chest [id number]-[id number] [facility] Telephone encounter Note * Telephone Encounter - Thelma Suarez LPN - 06/08/2023 11:03 AM EDT Message below given to daughter. Daughter reports pt is having chest pain and problems swallowing. RN to triage call further. Thelma Suarez LPN [facility]04-18-2024 Miscellaneous Notes* Telephone Encounter - Thelma Suarez LPN - 06/08/2023 11:03 AM EDT Message below given to daughter. Daughter reports pt is having chest pain and problems swallowing. RN to triage call further. Thelma Suarez LPN * Telephone Encounter - Prachi Farrar MA - 06/08/2023 9:15 AM EDT Left message for return call. * Telephone Encounter - Rocio Elizalde APRN.CNP - 06/08/2023 8:30 AM EDT She should continue with the midodrine until she sees Dr. Floyd on 06/29, I will send in a refill to get her through until this appointment Rocio Elizalde APRN.CNP * Telephone Encounter - Prachi Farrar MA - 06/07/2023 6:24 PM EDT Patient states she is to have blood work in [address] Gregory in 4 weeks. No medicationchanges. * Telephone Encounter - Rocio Elizalde APRN.CNP - 06/07/2023 5:46 PM EDT BP looks better. Did she have follow-up with Dr. Gregory? Did he make any medication changes? /Rocio Elizalde APRN.CNP * Telephone Encounter - Milagros Burton LPN - 06/07/2023 3:49 PM EDT Patient returned call and gave me list of readings. 05/30 8 am 120/64 pulse 105 sitting 13 8 am 148/88 pulse 81 sitting 9 am 99/69 standing 15 7 am 133/91 pulse 88 sitting 1015 am 121/75 pulse 60 standing 16 645 am 138/96 pulse 88 sitting 1250 pm 147/100 pulse 103 standing 06/06 7 am 140/87 pulse 82 sitting 9 am 80/75 pulse 104 standing 1120 am 150/76 pulse 110 standing * Telephone Encounter - Torsten Butler MA - 06/07/2023 2:42 PM EDT Left message to call office. 06/07/2023 2:42 PM * Telephone Encounter - Torsten Butler MA - 06/07/2023 2:37 PM EDT ----- Message from Rocio Elizalde APRN.SPORTS TEAM MANAGER sent at 05/31/2023 12:58 PM EDT ----- Please call patient for home blood pressure readings documented [facility]04-[facility] Telephone encounter Note * Telephone Encounter - Prachi Farrar MA - 06/08/2023 9:15 AM EDT Left message for return call. [facility]04-18-[facility] Telephone encounter Note* Telephone Encounter - Rocio Elizalde APRN.CNP - 06/08/2023 8:30 AM EDT She should continue with the midodrine until she sees Dr. Floyd on 06/29, I will send in a refill to get her through until this appointment Rocio Elizalde APRN.SPORTS TEAM MANAGER [facility]04-17-[facility] Telephone encounter Note* Telephone Encounter - Prachi Farrar MA - 06/07/2023 6:24 PM EDT Patient states she is to have blood work in [address] Gregory in 4 weeks. No medicationchanges. [facility]04-17-[facility] Telephone encounter Note* Telephone Encounter - Rocio Elizalde APRN.TELLY - 06/07/2023 5:46 PM EDT BP looks better. Did she have follow-up with Dr. Gregory? Did he make any medication changes? /Rocio Elizalde APRN.SPORTS TEAM MANAGER [facility]04-17-[facility] Telephone encounter Note* Telephone Encounter - Milagros Burton LPN - 06/07/2023 3:49 PM EDT Patient returned call and gave me list of readings. 05/30 8 am 120/64 pulse 105 sitting /13 8 am 148/88 pulse 81 sitting 9 am 99/69 standing /15 7 am 133/91 pulse 88 sitting 1015 am 121/75 pulse 60 standing 16 645 am 138/96 pulse 88 sitting 1250 pm 147/100 pulse 103 standing 17 7 am 140/87 pulse 82 sitting 9 am 80/75 pulse 104 standing 1120 am 150/76 pulse 110 standing [facility]04-[facility] Telephone encounter Note* Telephone Encounter - Torsten Butler MA - 06/07/2023 2:42 PM EDT Left message to call office. 06/07/2023 2:42 PM [facility]04-17-[facility] Telephone encounter Note* Telephone Encounter - Torsten Butler MA - 06/07/2023 2:37 PM EDT ----- Message from Rocio Elizalde APRN.SPORTS TEAM MANAGER sent at 05/31/2023 12:58 PM EDT ----- Please call patient for home blood pressure readings [facility]04-10-20[facility] Miscellaneous Notes* Telephone Encounter - Kelley Rivera LPN - 05/31/2023 2:18 PM EDT [facility] infusion suite called asking for dx for INR. In review dx of DVT code was given per problem list. documented in [facility]04-[facility] History of Present illness Narrative* Rocio Elizalde APRN.CNP - 05/31/2023 1:01 PM EDT PT requesting orders Rocio Elizalde APRN.SPORTS TEAM MANAGER documented in this encounterR[facility]04-10-2024 History of Present illness Narrative* Rocio Elizalde APRN.CNP - 05/31/2023 11:26 AM EDT CC: Patient presents with: Hospital F/U: High calcium HPI Linda Peralta is a 78 year old female who presents today for above. Patient was admitted to 05/23 to 05/25 for elevated calcium, weakness and hypotension. She had been treated for this a couple weeks prior at [facility] with Zometa infusion. Levels had initially improved but were high again on repeat outpatient labs. She has a history of idiopathic hypercalcemia. She was treated with Calcitonin during this admission which lowered ionized calcium from 1.53 to 1.32. Her shoe reconditioner is Dr. Gregory at , she is scheduled for follow-up with him on 06/05. Her main concern today is weakness, lightheadedness and hypotension. She was taken off blood pressure medications by her fiberglass boat finisher due to hypotension, last dose was over two weeks ago. Checking her BP at home, fluctuates between 100's/60's to 130's/80's. She does feel lightheaded when her BP is low. Weakness has been an ongoing issue however she was starting to improve with PT until now. She has a history of Moris's disease. Her Cortef dose was being titrated down by previous shoe reconditioner due to bone loss which is also right around the time her BP started dropping. She denies chest pain, SOB, palpitations, syncope or pre-syncope. She is pushing fluids, mostly water and at least decaf tea a day. Review of Systems See HPI PAST MEDICAL HISTORY Diagnosis Date Age-related osteoporosis with current pathological fracture with routine healing 01/19/2023 Anemia 08/26/2009 ASHD (arteriosclerotic heart disease) 04/25/2009 Asthma Benign neoplasm of colon 04/26/2005 Tubular adenoma Chronic diarrhea 03/15/2010 Chronic sphenoidal sinusitis 09/15/2003 Closed fracture of bone of right foot 11/08/2022 Collagenous colitis 03/30/2010 Contact dermatitis and other eczema, due to unspecified cause 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[place]'s disease Cystocele, midline 07/23/2007 Diverticulosis of colon (without mention of hemorrhage) DVT (deep venous thrombosis) ([facility]) 03/23/2012 DVT of lower extremity (deep venous thrombosis) ([facility]) 03/27/2009 Esophageal reflux Gallstones 03/06/2016 Hypercalcemia 03/19/2009 Hypertension NSTEMI (non-ST elevated myocardial infarction) ([facility]) 04/27/2009 Cardiac cath normal Other adrenal hypofunction [...] W/COLLJ SPEC WHEN PFRMD 03/26/2010 Inpatient at [facility] ESOPHAGOGASTRODUODENOSCOPY TRANSORAL DIAGNOSTIC 02/2002 EGD ESOPHAGOGASTRODUODENOSCOPY TRANSORAL [...] BSO ALLERGIES Cipro [Ciprofloxacin] and Penicillins MEDICATIONS dupilumab 300 mg/2 mL subcutaneous pen injector (SpaceIL) .[id number] fluticasone (FLONASE) 50 mcg/actuation nasal spray Use 2 Sprays in each nostril once daily. Rinse mouth after use. hydrOXYzine HCl (ATARAX) 50 mg tablet Take 1 tablet by mouth at bedtime as needed for itching/rash. hydrocortisone (CORTEF) 10 mg tablet Take 10 mg by mouth two times a day. As directed per endocrinology. simvastatin (ZOCOR) 20 mg tablet Take 1 tablet by mouth daily at bedtime. amLODIPine (NORVASC) 5 mg tablet Take 2.5 mg by mouth once daily. [facility]. levocetirizine (XYZAL) 5 mg tablet Take 1 tablet by mouth once daily. nitroglycerin sublingual (NITROQUICK) [...] Age of Onset Coronary Artery Disease Mother [place] at 87y.o. Hypertension Mother Stroke Father Coronary [...] Topics Alcohol use: No Drug use: No BP 102/71 Pulse 112 Temp 36.2 C (97.1 F) (Temporal) Resp 14 Wt 64.4 kg (142 lb) SpO2 97% BMI 25.48 kg/m BP w/Orthostatic Vitals Date and Time Orthostatic BP Orthostatic Pulse BP Pulse BP Position BP Site BP Cuff Size 05/31/23 1155 91/69 134 -- -- Standing Left Arm Regular Adult 05/31/23 1153 114/80 96 -- -- Supine Left Arm Regular Adult Physical Exam Vitals reviewed. Constitutional: General: She is not in acute distress. Appearance: She is not toxic-appearing. Cardiovascular: Rate and Rhythm: Regular rhythm. Tachycardia present. Pulses: Normal pulses. Heart sounds: Murmur heard. Pulmonary: Effort: Pulmonary effort is normal. Breath sounds: Normal breath sounds. No wheezing, rhonchi or rales. Musculoskeletal: General: No swelling. Skin: General: Skin is warm and dry. Neurological: Mental Status: She is alert. Psychiatric: Mood and Affect: Mood and affect normal. Speech: Speech normal. Behavior: Behavior normal. Behavior is cooperative. Thought Content: Thought content normal. Cognition and Memory: Cognition normal. Judgment: Judgment normal. DATA REVIEWED: Outside chart from reviewed. ASSESSMENT/PLAN: 1. Other specified hypotension - ICD9: 458.8, ICD10: I95.89 (primary diagnosis) Suspect secondary to Moris's and possibly decreased dose of Cortef. Discussed with patient's PCP,the following recommendations reviewed with patient and daughter: IV fluid bolus, will fax orders to [facility] as there is no availability within [facility]. Start Midodrine, see orders. Continue to maintain adequate hydration to include not only water but other liquids as well to avoid hemodilution. Continue to monitor BP at home, we will call her next week for readings Follow-up with shoe reconditioner next week as scheduled Follow-up with PCP in one month 2. [place]'s disease (HCC) - ICD9: 255.41, ICD10: E27.1 As above 3. Hypercalcemia - ICD9: 275.42, ICD10: E83.52 As above Prescription instructions reviewed with patient as applicable. Potential red flag symptoms discussed with the patient. Reviewed appropriate action plan to take if red flag symptoms occur. Patient agreeable to treatment plan. Rocio Elizalde APRN.SPORTS TEAM MANAGER documented in this encounterR[facility]04-10-2024 History of Present illness Narrative* Kole El, PT - 05/31/2023 10:27 AM EDT Program_ID:[id number] Access Code: [email or web address] URL: [email or web address] Date: 05-31-2023 Prepared By: Kole El Program Notes Exercises - Mini Squat with Counter Support - 2 x daily - 5 x weekly - 2 sets - 10 reps - Standing Hip Abduction with Counter Support - 2 x daily - 5 x weekly - 2 sets - 10 reps - Seated Long Arc Quad with Ankle Weight - 2 x daily - 5 x weekly - 2 sets - 10 reps - Heel Toe Raises with Counter Support - 2 x daily - 5 x weekly - 2 sets - 10-15 reps - Seated Hip Abduction with Resistance - 2 x daily - 5 x weekly - 2 sets - 10 reps - Seated Hip Adduction Isometrics with Ball - 2 x daily - 5 x weekly - 2 sets - 10 reps * Kole El, PT - 05/31/2023 9:47 AM EDT Images from the original note were not included. Episode Visit Count: 8 Therapist That Will Accept/Oversee The Plan Of Care: Kole El PT, DPT. Start of Care Date: 03/28/23 Onset Date: 11/07/22 Plan of Care Certification Date: 05/31/23 Next Certification Due Date: 07/05/23 Patient Identified by Name and Date of : Yes REHABILITATION AND SPORTS THERAPY PHYSICAL THERAPY PROGRESS REPORT PLAN OF CARE UPDATE: Assessment: Linda Peralta demonstrates acute decline in physical condition due to recent ER visits and admitted hospitalizations. She has new goals added to address deconditioning, gait abnormality, fatigue and muscle weakness . Patient continues to present with impairments in ADL's, balance, gait, independence in exercise, overall function, patient reported outcome measures, strength, symptom management, and functional performance testing indicates risk for falls that interfere with walking, walking in the community, physical activities, recreational activities, stair negotiation, rising from a chair . Current prognosis is Fair due to: clinical presentation, multiple co- morbidities, Prognosis may beimproved by (Acute Decline in Physical Function.) positive past response to therapy, within-sessionchanges, good support system/ coping skills. She will benefit from continued skilled therapy services to meet the updated goals for this plan of care as noted below. Updated 05/31/23. Goals for Episode of Care: created on 03/28/23 through 07/05/23 [place] in home exercise program.-- Met continue to monitor Patient will decrease pain rating by 2 points to meet minimal clinical important difference for numeric pain rating scale.-- Met, continue to monitor Patient will demonstrate increase in BLE strength to 4+ to 5/5 (abdoulaye. Hip flexors & hip ABD) during manual muscle testing in order to improve function for basic self-care tasks, home management tasks, prior functional tasks, and light functional tasks.-- (recent decline, progressing). Improve gait mechanics for ability tp return to leisure / recreation exercise.-- (recent decline, progressing). Improve stair ascending negotiation without report of symptoms/pain in 6 weeks.-- (recent decline, progressing). NEW GOALS (Added 05/31/23). Improve score on Timed Up and Go Test to <10.5 seconds to reflect decreased fall risk. Improve score on 30 Second Chair Stand to >11 repetitions to reflect decreased fall risk. Improve performance on 4 Stage Balance Test to >7 for tandem and at least >3 seconds for B SLS to reflect decreased fall risk. Patient Goals: Reduce pain; improve movement; get back to PLOF. Planned Interventions, Frequency, and Duration: 1x/week, 8 weeks Total Number of Visits Planned: 8 Patient to be seen for Therapeutic exercise (14331), Neuromuscular re-education (54595), Manual therapy (09252), Self-fdc management (28383), Therapeutic activities (97505), Gait Training (37438), Patient/Family/Caregiver Education, General Conditioning PLAN FOR NEXT VISIT: Gross LE & SL Strengthening; Endurance & COnditioning Interventions, Balancing. SUBJECTIVE: Patient reports multiple ER visits and hospitalizations the last multiple weeks; was admitted 05/23/23 to 05/26/23; Calcium and creatinine kidney levels were high, and BP was low. daughter states blood levels are normalized, however patient and daughter states she is having more bone and muscle pain recently and is afraid of falling. Patient feels like she is back square one overall. Gross achiness and can hardly walk in the morning. Functional Limitations: walking, walking in the community, physical activities, recreational activities, stair negotiation, rising from a chair Pain: Pain Pain Level: (Grossly 3 B LEs.) Description: Aching PROMIS Scales 05/31/2023 03/28/2023 11/08/2022 Higher is Better Phys Func - Score 38 (moderate dysfunction) 41 (mild dysfunction) 49 (within normal limits) Phys Func - Percentile 12 18 46 Self-Eff Symptom - Score 41 (Average) 58 (Average) Self-Eff Symptom - Percentile 18 79 T-scores: mean of general population = 50. 5 points is clinically meaningfully difference Percentiles provide an indication of how the patient's score ranks in relation to the general population. Higher percentile rankings indicate better function/quality of life. 50th percentile is the average of the general population and indicates half of respondents had a worse score. OBJECTIVE MEASURES WITH LEVEL OF FUNCTION: LE Strength R Hip Extension: 4/5 R Hip Flexion (L2): 2+/5 R Hip ABduction: 3/5 R Hip ADduction: 4+/5 R Hip Internal Rotation: 4+/5 R Hip External Rotation: 4/5 R Knee Extension (L3): 4/5 R Knee Flexion: 4+/5 R Ankle Dorsiflexion (L4): 5/5 R Ankle Plantar Flexion: 5/5 R Ankle Inversion: 5/5 R Ankle Eversion: 5/5 L Hip Extension: 4/5 L Hip Flexion (L2): 3+/5 L Hip ABduction: 3/5 L Hip ADduction: 4+/5 L Hip Internal Rotation: 4+/5 L Hip External Rotation: 4+/5 L Knee Extension (L3): 4/5 L Knee Flexion: 4+/5 L Ankle Dorsiflexion (L4): 5/5 L Ankle Plantar Flexion: 5/5 L Ankle Inversion: 5/5 L Ankle Eversion: 5/5 Gait Gait Observation: B Trendelenburg (R > L). Stairs: Step-To Pattern, unable to complete reciprocal. Functional Performance Test Results Assistive Device: None 30 Second Chair Stand Test: 9 reps 5 Times Sit to Stand Test : 9.94 sec Timed Up and Go (sec): 12.64 sec 4 Stage Balance Test Narrow base of support (sec): 10 sec Semi-tandem base of support (sec): 10 sec Tandem base of support (sec): 5 sec Single leg stance - right (sec): 0.75 sec Single leg stance - left (sec): 2.5 sec TREATMENT: Therapeutic Exercise: 1: Warm Up on Seated Bike: 6 Minutes (Direct 1:1 and subjective taken.) 2: Reviewed and re-educated on HEP; handout provided. 3: PT Demoed Exercises: Minisquats, Hip ABD Iso Holds, Hip ADD Iso Holds, LAQ, Heel and Toe Raises. 4: PC & Objective Measures Collected Skilled Intervention: Patient was educated in proper exercise technique and purpose for exercises. Reviewed and educated patient on additions/changes for home exercise program as above (*). Skilled judgment was used in selection of appropriate interventions. Provided written instruction for home exercise program to facilitate proper performance and compliance. Self-Halfway Management: 1: *Longer discussion regarding recent decline in phys. function and improtance of following up with PCP throughout our POC. 2: *Discussed fall risk with patient and daughter; informed patient importance of having no falls for continued adavancement with PT and letting others assist with ADL/IADLs currently is not taking away indep. rather helping her out while she regains physical function for the time being. 3: *Discussed exam findings. Discussed new therapy goals, and what therapy will consist of. Patientand daughter in agreeance to PT. Skilled Intervention: Skilled judgment in the selection of proper modification for activity of daily living/home management based on clinical presentation, deficits, and needs. Reviewed patient specific diagnosis in relation to activities of daily living/home management. Activity progression based on professional judgement. Billing Therapeutic Exercise Treatment Minutes: 30 Self-Care/Home Management Treatment Minutes: 18 Skilled Treatment Time Minutes (timed and untimed codes): 48 Total Session Time (minutes): 48 Session Start Time : 944 Session Stop Time : 1033 Kole El [facility] of Present illness Narrative* Temitope Field OT - 05/26/2023 2:31 PM EDT 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 Therapy Therapy Communication Note Patient Name: Linda Peralta Today's Date: 05/26/2023 Discipline: 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 Therapy Missed Visit Reason: Missed Visit Reason: Other (Comment) (2nd attempt to see pt, preparing to d/c) Missed Time: Attempt * Temitope Field OT - 05/26/2023 9:33 AM EDT 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 Therapy Therapy Communication Note Patient Name: Linda Peralta Today's Date: 05/26/2023 Discipline: 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 Therapy Missed Visit Reason: Missed Visit Reason: Other (Comment) (Pt heavily asleep, unable to wake for participation in therapy. Will reattempt as pt tolerates.) Missed Time: Attempt * Alexander Gregory MD - 05/25/2023 6:48 PM EDT Endocrinology Progress Note Patient: Linda Peralta Unit/Bed: 1008/1008-A Date of : 1945 Acct: [id number] Admitting Diagnosis: Hypercalcemia [E83.52] Date: 05/24/2023 Hospital Day: 1 Attending: Jazmine Britt MD Complaint: No chief complaint on file. Hypercalcemia- asymptomatic Parathyroid hormone again is low suggesting other causes of hypercalcemia rule out granulomatous disease rule out malignancy Assessment Patient Active Problem List Diagnosis Hypercalcemia Adrenal hypofunction (CMS/HCC) Anemia in chronic kidney disease Aortic valve stenosis Asthma 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 Gastroesophageal reflux disease Generalized muscle weakness History of malignant neoplasm History of pulmonary embolism Hyperlipidemia, unspecified Hypertensive kidney disease with stage 3b chronic kidney disease (CMS/HCC) DVT (deep venous thrombosis) ([facility]/HCC) 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 About 2 hours a week. The patient calcitonin was causing some nausea has been held patient could be discharged today. SUBJECTIVE Patient calcium was reviewed and has improved tremendously. She had some nausea with calcitonin andit was held VITALS Vitals: 05/25/23 0415 05/25/23 0801 05/25/23 1051 05/25/23 1636 BP: 130/77 112/79 107/70 99/69 BP Location: Right arm Right arm Right leg Patient Position: Lying Sitting Lying Lying Pulse: 98 99 99 106 Resp: Temp: 36.2 C (97.2 F) 36.1 C (97 F) 36.5 C (97.7 F) 37 C (98.6 F) TempSrc: Temporal Temporal Temporal Temporal SpO2: 92% 91% 90% 91% Weight: Height: Intake/Output Summary (Last 24 hours) at 05/25/2023 1848 Last data filed at 05/25/2023 1817 Gross per 24 hour Intake 2848.33 ml Output -- Net 2848.33 ml Wt Readings from Last 4 Encounters: 05/24/23 64.1 kg (141 lb 5 oz) Allergies: Allergies Allergen Reactions Amlodipine Swelling Ciprofloxacin Rash rash with 500mg dose Penicillins Rash and Other rash PHYSICAL EXAM Physical Exam deferred LABS Magnesium: Results from last 7 days Lab Units 05/24/23 0435 05/24/23 0306 MAGNESIUM mg/dL 1.95 2.03 Lipid Panel: Lab Review Lab Results Component Value Date BILITOT 0.5 05/24/2023 CALCIUM 9.9 05/25/2023 CO2 23 05/25/2023 CL 109 (H) 05/25/2023 CREATININE 1.80 (H) 05/25/2023 GLUCOSE 135 (H) 05/25/2023 ALKPHOS 47 05/24/2023 K 3.7 05/25/2023 PROT 5.1 (L) 05/24/2023 NA 139 05/25/2023 AST 45 (H) 05/24/2023 ALT 39 05/24/2023 BUN 33 (H) 05/25/2023 ANIONGAP 11 05/25/2023 MG 1.95 05/24/2023 PHOS 3.2 05/25/2023 ALBUMIN 3.1 (L) 05/24/2023 No results found for: TRIG, CHOL, LDLCALC, HDL Lab Results Component Value Date HGBA1C 5.3 05/25/2023 The ASCVD Risk score (Sung DK, et al., 2019) failed to calculate for the following reasons: The 2019 ASCVD risk score is only valid for ages 40 to 79 Lab Results Component Value Date HGBA1C 5.3 05/25/2023 NA 139 05/25/2023 K 3.7 05/25/2023 CL 109 (H) 05/25/2023 CO2 23 05/25/2023 BUN 33 (H) 05/25/2023 CREATININE 1.80 (H) 05/25/2023 CALCIUM 9.9 05/25/2023 ALBUMIN 3.1 (L) 05/24/2023 PROT 5.1 (L) 05/24/2023 BILITOT 0.5 05/24/2023 ALKPHOS 47 05/24/2023 ALT 39 05/24/2023 AST 45 (H) 05/24/2023 GLUCOSE 135 (H) 05/25/2023 cephalexin, 500 mg, oral, q12h KARLY hydrocortisone, 20 mg, oral, Daily simvastatin, 20 mg, oral, Nightly warfarin, 2.5 mg, oral, Daily * Damir Archer RN - 05/25/2023 12:08 PM EDT 05/25/23 1208 Current Planned Discharge Disposition Current Planned Discharge Disposition Home Patient lives alone, however is in agreement with plan to discharge home, no further needs. Patientis self sufficient, has family near by for assistance if needed. * Raisa James Frederick, ROAD ROLLER OPERATOR [employer]OR[employer] TEAM MANAGER - 05/25/2023 10:11 AM EDT Daily Progress Note Linda Peralta is a 78 y.o. female on day 1 of admission presenting with Hypercalcemia. Subjective Patient seen resting quietly in bed complaining of nausea. Patient was given calcitonin last night.Patient denies vomiting or diarrhea. Will add Phenergan x 1. Calcium improving. Endocrinology continues to follow. Objective Physical Exam Physical Exam Constitutional: Appearance: Normal appearance. HENT: Head: Normocephalic. Mouth/Throat: Mouth: Mucous membranes are moist. Eyes: Pupils: Pupils are equal, round, and reactive to light. Cardiovascular: Rate and Rhythm: Normal rate and regular rhythm. Heart sounds: Normal heart sounds, S1 normal and S2 normal. Pulmonary: Effort: Pulmonary effort is normal. Breath sounds: Normal breath sounds. Abdominal: General: Bowel sounds are normal. Palpations: Abdomen is soft. Musculoskeletal: General: Normal range of motion. Cervical back: Neck supple. Skin: General: Skin is warm. Neurological: Mental Status: She is alert and oriented to person, place, and time. Motor: Weakness present. Psychiatric: Mood and Affect: Mood normal. Behavior: Behavior normal. Last Recorded Vitals Blood pressure 112/79, pulse 99, temperature 36.1 C (97 F), temperature source Temporal, resp. rate 24, height 1.575 m (5' 2), weight 64.1 kg (141 lb 5 oz), SpO2 91 %. Intake/Output last 3 Shifts: I/O last 3 completed shifts: In: 2885 (45 mL/kg) [P.O.:665; I.V.:2220 (34.6 mL/kg)] Out: - (0 mL/kg) Weight: 64.1 kg Medications Scheduled medications calcitonin, 4 Units/kg, intramuscular, q12h cephalexin, 500 mg, oral, q12h KARLY hydrocortisone, 20 mg, oral, Daily promethazine, 12.5 mg, intravenous, Once simvastatin, 20 mg, oral, Nightly warfarin, 2.5 mg, oral, Daily Continuous medications sodium chloride 0.9%, 100 mL/hr, Last Rate: 100 mL/hr (05/25/23 0545) PRN medications PRN medications: acetaminophen OR acetaminophen OR acetaminophen, ondansetron OR ondansetron Labs CBC: Results from last 7 days Lab Units 05/24/2343405/24/23306 WBC AUTO x10*3/uL 9.6 9.1 RBC AUTO x10*6/uL 4.61 4.80 HEMOGLOBIN g/dL 13.5 14.1 HEMATOCRIT % 39.8 41.4 MCV fL 86 86 MCH pg 29.3 29.4 MCHC g/dL 33.9 34.1 RDW % 14.2 14.1 PLATELETS AUTO x10*3/uL 249 240 CMP: Results from last 7 days Lab Units 05/25/23 0002 05/24/2343405/24/23 030 SODIUM mmol/L 139 138 137 POTASSIUM mmol/L 3.7 3.8 3.8 CHLORIDE mmol/L 109* 108* 106 CO2 mmol/L 23 23 25 BUN mg/dL 33* 38* 37* CREATININE mg/dL 1.80* 1.87* 1.95* GLUCOSE mg/dL 135* 77 83 PROTEIN TOTAL g/dL -- 5.1* 5.4* CALCIUM mg/dL 9.9 11.1* 11.5* BILIRUBIN TOTAL mg/dL -- 0.5 0.5 ALK PHOS U/L -- 47 52 AST U/L -- 45* 48* ALT U/L -- 39 43 BMP: Results from last 7 days Lab Units 05/25/23 0002 05/24/2343405/24/23 030 SODIUM mmol/L 139 138 137 POTASSIUM mmol/L 3.7 3.8 3.8 CHLORIDE mmol/L 109* 108* 106 CO2 mmol/L 23 23 25 BUN mg/dL 33* 38* 37* CREATININE mg/dL 1.80* 1.87* 1.95* CALCIUM mg/dL 9.9 11.1* 11.5* GLUCOSE mg/dL 135* 77 83 Magnesium: Results from last 7 days Lab Units 05/24/2343405/24/23 0306 MAGNESIUM mg/dL 1.95 2.03 Troponin: BNP: Lipid Panel: Results from last 7 days Lab Units 05/25/2344605/24/23 0935 05/24/23 0306 INR 2.0* 2.2* 2.2* PROTIME seconds 23.0* 25.3* 25.0* Assessment/Plan Hypercalcemia Generalized muscular History of donor nephrectomy History Moris's disease HTN UTI GERD History of PE/DVT on warfarin -Regular diet -IV fluids 00 mL x 24 hours -Continuous telemetry -Check PTH, ionized calcium, vitamin D, CMP, CBC, lactate -Will add A1c -Endocrine consult -Calcium 9.9, from 11.1 down from 11.5, patient received Zometa on 05/14 -Patient received calcitonin last night -Will add Phenergan for nausea -Daily INR is for Coumadin -PTH 16.3 -Continue Keflex 500 twice daily for UTI -Resume home meds when appropriate -PT/OT evaluation -TCC for discharge planning CODE STATUS: DNR CCA DVTp: Continue Coumadin PLAN: Home NICOLE Wilkinson Plan of care was discussed extensively with patient. Patient verbalized understanding through teachback method. All question and concerns addressed upon examination. Of note, this documentation is completed using the [employer] system (voice recognition software). There may be spelling and/or grammatical errors that were not corrected prior to final submission. * Temitope Field, OT - 05/24/2023 3:02 PM EDT 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 Therapy Evaluation Patient Name: Linda Peralta Today's Date: 05/24/2023 Time Calculation Start Time: 1328 Stop Time: 1346 Time Calculation (min): 18 min Assessment: End of Session Communication: Bedside nurse End of Session Patient Position: Up in chair, Alarm on Plan: Treatment Interventions: ADL retraining, Functional transfer training, UE strengthening/ROM, Endurance training, Patient/family training OT Frequency: 2 times per week OT Discharge Recommendations: Low intensity level of continued care Equipment Recommended upon Discharge: Wheeled walker OT - OK to Discharge: Yes (ok to d/c once medically cleared) Treatment Interventions: ADL retraining, Functional transfer training, UE strengthening/ROM, Endurance training, Patient/family training Subjective Current Problem: No diagnosis found. General: General Reason for Referral: self care impairment Referred By: OT/PT Yoly 05/23 Past Medical History Relevant to Rehab: HTN, CKD3, anemia, GERD, moris disease HLD, hx kidney donor , PE DVT Prior to Session Communication: Bedside nurse Patient Position Received: Up in chair, Alarm on General Comment: pt is an 78 yo female came to the hospital on 05/[facility]. dx: hypercalcemia. test/labs : calcium 11.1. Precautions: Medical Precautions: Fall precautions Pain: Pain Assessment Pain Assessment: 0-10 Pain Score: 4 Pain Type: (generalized) Objective Cognition: Overall Cognitive Status: Within Functional Limits Orientation Level: Oriented X4 Home Living: Home Living Comments: Pt lives alone in 1-story home with 2-3 steps with rail. Pt has a walk in shower with seat and grab bars. Prior Function: Prior Function Comments: pt reports being IND with mobilty , adls and iadls drivs no falls. has SPC. recently having more trouble with ambulation. ADL: Eating Assistance: Independent Grooming Assistance: Independent Bathing Assistance: Minimal UE Dressing Assistance: Stand by LE Dressing Assistance: Minimal Toileting Assistance with Device: Minimal Activity Tolerance: Endurance: Decreased tolerance for upright activites Bed Mobility/Transfers: Bed Mobility Bed Mobility: No Transfers Transfer: Yes (Sit to stand sans AD with MIN A. Sit to stand with FWW with CGA.) Functional Mobility: Functional Mobility Functional Mobility Performed: Yes (Pt ambulated short functional distances sans AD with MIN A. Pt ambulated mod functional distances with FWW with CGA.) Sitting Balance: Static Sitting Balance Static Sitting-Comment/Number of Minutes: fair+ Dynamic Sitting Balance Dynamic Sitting-Comments: fair+ Standing Balance: Static Standing Balance Static Standing-Comment/Number of Minutes: fair Dynamic Standing Balance Dynamic Standing-Comments: fair Strength: Strength Comments: BUE grossly 4/ Hand Function: Gross Grasp: Functional Extremities: RUE RUE : Within Functional Limits and LUE LUE: Within Functional Limits Outcome Measures:[facility] Daily Activity Putting on and taking off regular lower body clothing: A little Bathing (including washing, rinsing, drying): A little Putting on and taking off regular upper body clothing: A little Toileting, which includes using toilet, bedpan or urinal: A little Taking care of personal grooming such as brushing teeth: None Eating Meals: None Daily Activity - Total Score: 20 Education Documentation Body Mechanics, taught by Temitope Field OT at 05/24/2023 3:01 PM. Learner: Patient Readiness: Acceptance Method: Explanation, Demonstration Response: Verbalizes Understanding, Demonstrated Understanding, Needs Reinforcement ADL Training, taught by Temitope Field OT at 05/24/2023 3:01 PM. Learner: Patient Readiness: Acceptance Method: Explanation, Demonstration Response: Verbalizes Understanding, Demonstrated Understanding, Needs Reinforcement IP EDUCATION: Education Individual(s) Educated: Patient Education Comment: Pt educated on safe AD management, verbalized and demo good understanding. Goals: Encounter Problems Encounter Problems (Active) OT Goals Pt will complete LB dressing with MOD I. (Progressing) Start: 05/24/23 Expected End: 06/07/23 Pt will improve dynamic standing balance to good- in prep for ADL tasks. (Progressing) Start: 05/24/23 Expected End: 06/07/23 Pt will complete all functional transfers with MOD I. (Progressing) Start: 05/24/23 Expected End: 06/07/23 * Jaiden Tracy, PT - 05/24/2023 2:29 PM EDT Physical Therapy Physical Therapy Evaluation Patient Name: Linda Peralta Today's Date: 05/24/2023 Time Calculation Start Time: 1327 Stop Time: 1346 Time Calculation (min): 19 min Assessment/Plan PT Assessment PT Assessment Results: Decreased strength, Decreased endurance, Impaired balance, Decreased mobility, Pain Rehab Prognosis: Good Evaluation/Treatment Tolerance: Patient limited by fatigue, Patient limited by pain End of Session Communication: Bedside nurse Assessment Comment: pt with decreased mobilty/gait strength balance and endurane . pt to benefit from skilled PT to address deficits and improve functional mobility . End of Session Patient Position: Up in chair, Alarm on IP OR SWING BED PT PLAN Inpatient or Swing Bed: Inpatient PT Plan Treatment/Interventions: Bed mobility, Transfer training, Gait training, Balance training, Endurance training, Strengthening, Therapeutic exercise, Therapeutic activity PT Plan: Skilled PT PT Frequency: 3 times per week PT Discharge Recommendations: Low intensity level of continued care Equipment Recommended upon Discharge: Wheeled walker PT Recommended Transfer Status: Assist x1, Assistive device PT - OK to Discharge: Yes (once medically ready for discharge to next level of care.) Subjective Current Problem: Patient Active Problem List Diagnosis Hypercalcemia Adrenal hypofunction (CMS/HCC) Anemia in chronic kidney disease Aortic valve stenosis Asthma 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 Gastroesophageal reflux disease Generalized muscle weakness History of malignant neoplasm History of pulmonary embolism Hyperlipidemia, unspecified Hypertensive kidney disease with stage 3b chronic kidney disease (CMS/HCC) DVT (deep venous thrombosis) ([facility]/HCC) [place]'s disease ([facility]) Primary hypertension Pure hypercholesterolemia Urinary tract infection, site not specified General Visit Information: General Reason for Referral: weakness/ impaired mobility Referred By: OT/PT Yoly 05/23 Past Medical History Relevant to Rehab: HTN, CKD3, anemia, GERD, moris disease HLD, hx kidney donor , PE DVT Prior to Session Communication: Bedside nurse (cleared to see for therapy eval.) Patient Position Received: Up in chair, Alarm on General Comment: pt is an 78 yo female came to the hospital on 05/[facility]. dx: hypercalcemia. test/labs : calcium 11.1. Home Living: Home Living Home Living Comments: pt lives alone 1 level home with 2+3 steps with rail pt reports having a walkin shower with seat and grab bars. Prior Level of Function: Prior Function Per Pt/Caregiver Report Prior Function Comments: pt reports being IND with mobilty , adls and iadls drivs no falls. has SPC. recently having more trouble with ambulation. Precautions: Precautions Medical Precautions: Fall precautions Objective Pain: Pain Assessment Pain Assessment: 0-10 Pain Score: 4 Pain Type: (all over pain .) Cognition: Cognition Overall Cognitive Status: Within Functional Limits Orientation Level: Oriented X4 General Assessments: Strength Strength Comments: BLE 4/5 to 4-/5 Dynamic Sitting Balance Dynamic Sitting-Comments: fair + Dynamic Standing Balance Dynamic Standing-Comments: fair /fair - Functional Assessments: Bed Mobility Bed Mobility: No Transfers Transfer: Yes Transfer 1 Technique 1: Sit to stand, Stand to sit Transfer Device 1: (without and with FWW .) Transfer Level of Assistance 1: Minimum assistance, Contact guard Trials/Comments 1: min A no FWW cga with FWW . Ambulation/Gait Training Ambulation/Gait Training Performed: Yes Ambulation/Gait Training 1 Surface 1: Level tile Device 1: Rolling walker Assistance 1: Minimum assistance, Contact guard Quality of Gait 1: Inconsistent stride length, Decreased step length (decreased swing /foot clearance on R when walking without FWW. improved stride with walker.) Comments/Distance (ft) 1: 20 ft without YAN decreased stride / 50 ft with FWW cga . improved stride . Extremity/Trunk Assessments: RLE RLE : Within Functional Limits LLE LLE : Within Functional Limits Outcome Measures: [facility] Basic Mobility Turning from your back to your side while in a flat bed without using bedrails: None Moving from lying on your back to sitting on the side of a flat bed without using bedrails: None Moving to and from bed to chair (including a wheelchair): A little Standing up from a chair using your arms (e.g. wheelchair or bedside chair): A little To walk in hospital room: A little Climbing 3-5 steps with railing: A lot Basic Mobility - Total Score: 19 Goals: Encounter Problems Encounter Problems (Active) PT Problem Pt will demonstrate mod I with sit to stand/chair transfers with FWW. Start: 05/24/23 Expected End: 06/07/23 Pt will ambulate 100 feet with FWW mod I . Start: 05/24/23 Expected End: 06/07/23 Pt to demo 5 steps with rails with Sup Start: 05/24/23 Expected End: 06/07/23 Pt to demo improved BLE strength by being able to complete supine/seated thera ex 2x20 BLEs with 4 or less rest breaks . Start: 05/24/23 Expected End: 06/07/23 Pain - Adult Education Documentation Mobility Training, taught by Jaiden Tracy PT at 05/24/2023 2:28 PM. Learner: Patient Readiness: Acceptance Method: Explanation Response: Verbalizes Understanding Education Comments No comments found. * Raisa Frederick APRN-TLELY - 05/24/2023 2:23 PM EDT Daily Progress Note Linda Peralta is a 78 y.o. female on day 1 of admission presenting with Hypercalcemia. Subjective Patient seen sitting up in the chair without any complaints. Patient was transferred from [facility] after found to have elevated ionized calcium. Patient states she had change in mental status at home. She was also found to have a UTI and started on Keflex 500 mg twice daily. Patient denies shortness of breath or chest pain at this time. Objective Physical Exam Physical Exam Constitutional: Appearance: Normal appearance. HENT: Head: Normocephalic. Mouth/Throat: Mouth: Mucous membranes are moist. Eyes: Pupils: Pupils are equal, round, and reactive to light. Cardiovascular: Rate and Rhythm: Normal rate and regular rhythm. Heart sounds: Normal heart sounds, S1 normal and S2 normal. Pulmonary: Effort: Pulmonary effort is normal. Breath sounds: Normal breath sounds. Abdominal: General: Bowel sounds are normal. Palpations: Abdomen is soft. Musculoskeletal: General: Normal range of motion. Cervical back: Neck supple. Skin: General: Skin is warm. Neurological: Mental Status: She is alert and oriented to person, place, and time. Motor: Weakness present. Psychiatric: Mood and Affect: Mood normal. Behavior: Behavior normal. Last Recorded Vitals Blood pressure 96/56, pulse 99, temperature 37.1 C (98.8 F), resp. rate 16, height 1.575 m (5' 2),weight 64.1 kg (141 lb 5 oz), SpO2 96 %. Intake/Output last 3 Shifts: No intake/output data recorded. Medications Scheduled medications cephalexin, 500 mg, oral, q12h KARLY hydrocortisone, 20 mg, oral, Daily simvastatin, 20 mg, oral, Nightly warfarin, 2.5 mg, oral, Daily Continuous medications PRN medications PRN medications: acetaminophen OR acetaminophen OR acetaminophen, ondansetron OR ondansetron Labs CBC: Results from last 7 days Lab Units 05/24/2343405/24/23 0307 WBC AUTO x10*3/uL 9.6 9.1 RBC AUTO x10*6/uL 4.61 4.80 HEMOGLOBIN g/dL 13.5 14.1 HEMATOCRIT % 39.8 41.4 MCV fL 86 86 MCH pg 29.3 29.4 MCHC g/dL 33.9 34.1 RDW % 14.2 14.1 PLATELETS AUTO x10*3/uL 249 240 CMP: Results from last 7 days Lab Units 05/24/23 0435 05/24/23 0306 SODIUM mmol/L 138 137 POTASSIUM mmol/L 3.8 3.8 CHLORIDE mmol/L 108* 106 CO2 mmol/L 23 25 BUN mg/dL 38* 37* CREATININE mg/dL 1.87* 1.95* GLUCOSE mg/dL 77 83 PROTEIN TOTAL g/dL 5.1* 5.4* CALCIUM mg/dL 11.1* 11.5* BILIRUBIN TOTAL mg/dL 0.5 0.5 ALK PHOS U/L 47 52 AST U/L 45* 48* ALT U/L 39 43 BMP: Results from last 7 days Lab Units 05/24/23 0435 05/24/23 0306 SODIUM mmol/L 138 137 POTASSIUM mmol/L 3.8 3.8 CHLORIDE mmol/L 108* 106 CO2 mmol/L 23 25 BUN mg/dL 38* 37* CREATININE mg/dL 1.87* 1.95* CALCIUM mg/dL 11.1* 11.5* GLUCOSE mg/dL 77 83 Magnesium: Results from last 7 days Lab Units 05/24/23 0435 05/24/23 0306 MAGNESIUM mg/dL 1.95 2.03 Troponin: BNP: Lipid Panel: Results from last 7 days Lab Units 05/24/23 0935 05/24/23 0306 INR 2.2* 2.2* PROTIME seconds 25.3* 25.0* Assessment/Plan Hypercalcemia Generalized muscular weakness History of donor nephrectomy History [place]'s disease HTN UTI GERD History of PE/DVT on warfarin -Regular diet -IV fluids 100 mL x 24 hours -Continuous telemetry -Check PTH, ionized calcium, vitamin D, CMP, CBC, lactate -Endocrine consult -Calcium 11.1 down from 11.5, patient received Zometa on 05/14 -PTH 11.2 -UA sent -Continue Keflex 500 twice daily for UTI -Resume home meds when appropriate -PT/OT evaluation -TCC for discharge planning CODE STATUS: DNR CCA DVTp: Continue Coumadin PLAN: Home Raisa Frederick APRN-SPORTS TEAM MANAGER Plan of care was discussed extensively with patient. Patient verbalized understanding through teachback method. All question and concerns addressed upon examination. Of note, this documentation is completed using the [employer] system (voice recognition software). There may be spelling and/or grammatical errors that were not corrected prior to final submission. * Damir Archer RN - 05/24/2023 10:01 AM EDT 05/24/23 1001 Discharge Planning Living Arrangements Alone Support Systems Family members Assistance Needed None Type of Residence Private residence Number of Stairs to Enter Residence 2 Do you have animals or pets at home? No Who is requesting discharge planning? Provider Home or Post Acute Services None Patient expects to be discharged to: Home Patient is from [place], is here d/t hypercalcemia and her provider or endocrinology is Dr. Gregory so patient transferred to this facility. 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 Patient at this time declines needing any assistance. Plan is home. * Jazmine Britt MD - 05/24/2023 8:36 AM EDT Daily progress note Linda Peralta is 78 y.o. female ID sensitive disease, hypertension, GERD, PE/DVT on warfarin, hypercalcemia presented for elevated calcium level, Admitted for hypercalcemia, upon presentation calcium level, Was 11.5, also had UTI and was startedon Keflex from another facility. Patient reported her calcium was 12 at another facility, received Zometa on 05/14 and was on IV hydration. Vital signs in last 24 hours: Temp: [36.3 C (97.3 F)-36.4 C (97.5 F)] 36.3 C (97.3 F) Heart Rate: [81-101] 101 Resp: [14-16] 16 BP: (103-137)/(72-84) 104/72 BP 104/72 Pulse 101 Temp 36.3 C (97.3 F) Resp 16 Ht 1.575 m (5' 2) Wt 64.1 kg (141 lb 5 oz) SpO2 98% BMI 25.85 kg/m Intake/Output last 3 shifts: No intake/output data recorded. Intake/Output this shift: No intake/output data recorded. Physical Exam Constitutional: General: She is not in acute distress. Appearance: Normal appearance. She is not ill-appearing, toxic-appearing or diaphoretic. HENT: Head: Normocephalic and atraumatic. Mouth/Throat: Mouth: Mucous membranes are moist. Pharynx: No oropharyngeal exudate. Eyes: Extraocular Movements: Extraocular movements intact. Pupils: Pupils are equal, round, and reactive to light. Cardiovascular: Rate and Rhythm: Normal rate and regular rhythm. Heart sounds: No murmur heard. Pulmonary: Effort: Pulmonary effort is normal. No respiratory distress. Breath sounds: Normal breath sounds. No wheezing. Abdominal: General: Abdomen is flat. Bowel sounds are normal. There is no distension. Tenderness: There is no abdominal tenderness. There is no guarding or rebound. Musculoskeletal: General: No swelling. Right lower leg: No edema. Left lower leg: No edema. Skin: Findings: No lesion or rash. Neurological: General: No focal deficit present. Mental Status: She is alert and oriented to person, place, and time. Cranial Nerves: No cranial nerve deficit. Motor: No weakness. Psychiatric: Mood and Affect: Mood normal. Behavior: Behavior normal. Current medication Current Facility-Administered Medications Medication Dose Route Frequency Provider Last Rate Last Admin acetaminophen (Tylenol) tablet 650 mg 650 mg oral q4h PRN NICOLE Ahmadi Or acetaminophen (Tylenol) oral liquid 650 mg 650 mg oral q4h PRN NICOLE Ahmadi Or acetaminophen (Tylenol) suppository 650 mg 650 mg rectal q4h PRN NICOLE Ahmadi ondansetron (Zofran) tablet 4 mg 4 mg oral q8h PRN NICOLE Ahmadi Or ondansetron (Zofran) injection 4 mg 4 mg intravenous q8h PRN NICOLE Ahmadi sodium chloride 0.9% infusion 100 mL/hr intravenous Continuous NICOLE Ahmadi 100 mL/hr at 05/24/23 0230 100 mL/hr at 05/24/23 0230 Labs Lab Results Component Value Date WBC 9.6 05/24/2023 HGB 13.5 05/24/2023 HCT 39.8 05/24/2023 MCV 86 05/24/2023 PLT 249 05/24/2023 No results found for: HGBA1C Lab Results Component Value Date GLUCOSE 77 05/24/2023 CALCIUM 11.1 (H) 05/24/2023 NA 138 05/24/2023 K 3.8 05/24/2023 CO2 23 05/24/2023 CL 108 (H) 05/24/2023 BUN 38 (H) 05/24/2023 CREATININE 1.87 (H) 05/24/2023 Principal Problem: Hypercalcemia Active Problems: Anemia in chronic kidney disease 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 Generalized muscle weakness Hypertensive kidney disease with stage 3b chronic kidney disease ([facility]) [place]'s disease ([facility]) Urinary tract infection, site not specified Assessment and Plan #Mild hypercalcemia Continue IV hydration Endocrine consulted Check intact PTH, PTH related peptide 125 vitamin D, monitor calcium level If he gets worse we will try calcitonin /bisphosphonates Currently around 11 to continue monitoring Patient reported she received Zometa on 05/14 Reported that the highest calcium level she had was 12 at another facility #Acute cystitis Was started on antibiotics for UTI at an outside facility Check UA and urine culture Continue Keflex *Generalized weakness PT/OT #GERD #History of DVT/PE on Coumadin #History of hypertension Continue Coumadin Continue rest of her home meds #CKD stage III Creatinine around baseline Continue monitoring BMP #DVT prophylaxis on Coumadin therapeutic INR continue LOS: 1 day documented in this [facility] Work Phone: 1(909) 307-800704-05-2024 Hospital course Narrative* Raisa Frederick APRN-TELLY - 05/26/2023 12:30 PM EDT Discharge Diagnosis Hypercalcemia Issues Requiring Follow-Up none Discharge Meds Your medication list CONTINUE taking these medications Instructions Last Dose Given Next Dose Due cephalexin 500 mg capsule Commonly known as: Keflex hydrocortisone 10 mg tablet Commonly known as: Cortef simvastatin 20 mg tablet Commonly known as: Zocor warfarin 2.5 mg tablet Commonly known as: Coumadin Test Results Pending At Discharge Pending Labs Order Current Status Hemoglobin A1C In process PTH-Related Peptide In process PTH-Related Peptide In process Vitamin D 1,25 Dihydroxy (for eval of hypercalcemia) In process Hospital Course Linda Peralta is a 78 y.o. female with a significant past medical history of hypercalcemia, [place]'s disease, HTN, GERD, PE/DVT on warfarin presenting to [facility] from [place] ER after found to have elevated ionized calcium on routine lab work. Patient presented to [place] for IV fluids, UAreportedly showed evidence of UTI and patient was started on Keflex 500 twice daily, received 1 dose prior to arrival, will cont here. Patient denies any acute fevers, chills, nausea or vomiting. Denies GI/ complaints but does have increased urinary frequency and urgency -that she attributes to drinking a lot of water per her doctor's recommendations. Patient seen ambulating through hospital with minimal assistance or issue. Chart review shows patient has been working with PT/OT for ongoing generalized muscular weakness and abnormal gait, noted close displaced fracture of fifth metatarsal healing without surgical intervention. 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 Gregory pt requesting to see him this visit, no history of thyroid disease, notedhistory of vitamin D deficiency added to a.m. labs, vital signs are stable. PTH was 11.2 and on discharge 16.3. INR therapeutic. Ionized calcium was 1.53 patient received calcitonin repeat 1.32. Per Dr. Gregory patient okay for discharge home and follow-up with endocrinology. On day of discharge patient hemodynamically stable. Pertinent Physical Exam At Time of Discharge Physical Exam Constitutional: Appearance: Normal appearance. HENT: Head: Normocephalic. Mouth/Throat: Mouth: Mucous membranes are moist. Eyes: Pupils: Pupils are equal, round, and reactive to light. Cardiovascular: Rate and Rhythm: Normal rate and regular rhythm. Heart sounds: Normal heart sounds, S1 normal and S2 normal. Pulmonary: Effort: Pulmonary effort is normal. Breath sounds: Normal breath sounds. Abdominal: General: Bowel sounds are normal. Palpations: Abdomen is soft. Musculoskeletal: General: Normal range of motion. Cervical back: Neck supple. Skin: General: Skin is warm. Neurological: Mental Status: She is alert and oriented to person, place, and time. Psychiatric: Mood and Affect: Mood normal. Behavior: Behavior normal. Outpatient Follow-Up No future appointments. NICOLE Wilkinson [facility] Work Phone: 1(100) 658-309204-04-2024 Hospital Note* Hospital Course - NICOLE Wilkinson - 05/25/2023 11:49 AM EDT Linda Peralta is a 78 y.o. female with a significant past medical history of hypercalcemia, [place]'s disease, HTN, GERD, PE/DVT on warfarin presenting to [facility] from [place] ER after found to have elevated ionized calcium on routine lab work. Patient presented to [place] for IV fluids, UAreportedly showed evidence of UTI and patient was started on Keflex 500 twice daily, received 1 dose prior to arrival, will cont here. Patient denies any acute fevers, chills, nausea or vomiting. Denies GI/ complaints but does have increased urinary frequency and urgency -that she attributes to drinking a lot of water per her doctor's recommendations. Patient seen ambulating through hospital with minimal assistance or issue. Chart review shows patient has been working with PT/OT for ongoing generalized muscular weakness and abnormal gait, noted close displaced fracture of fifth metatarsal healing without surgical intervention. 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 Gregory pt requesting to see him this visit, no history of thyroid disease, notedhistory of vitamin D deficiency added to a.m. labs, vital signs are stable. PTH was 11.2 and on discharge 16.3. INR therapeutic. Ionized calcium was 1.53 patient received calcitonin repeat 1.32. Per Dr. Gregory patient okay for discharge home and follow-up with endocrinology. On day of discharge patient hemodynamically stable. [facility] Work Phone: 1(220) 269-503204-04-2024 Miscellaneous Notes* Hospital Course - NICOLE Wilkinson - 05/25/2023 11:49 AM EDT Linda Peralta is a 78 y.o. female with a significant past medical history of hypercalcemia, [place]'s disease, HTN, GERD, PE/DVT on warfarin presenting to [facility] from [place] ER after found to have elevated ionized calcium on routine lab work. Patient presented to [place] for IV fluids, UAreportedly showed evidence of UTI and patient was started on Keflex 500 twice daily, received 1 dose prior to arrival, will cont here. Patient denies any acute fevers, chills, nausea or vomiting. Denies GI/ complaints but does have increased urinary frequency and urgency -that she attributes to drinking a lot of water per her doctor's recommendations. Patient seen ambulating through hospital with minimal assistance or issue. Chart review shows patient has been working with PT/OT for ongoing generalized muscular weakness and abnormal gait, noted close displaced fracture of fifth metatarsal healing without surgical intervention. 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 Gregory pt requesting to see him this visit, no history of thyroid disease, notedhistory of vitamin D deficiency added to a.m. labs, vital signs are stable. PTH was 11.2 and on discharge 16.3. INR therapeutic. Ionized calcium was 1.53 patient received calcitonin repeat 1.32. Per Dr. Gregory patient okay for discharge home and follow-up with endocrinology. On day of discharge patient hemodynamically stable. [facility] Work Phone: 1(457) 511-609004-04-2024 Hospital Discharge instructions* Discharge Instructions* NICOLE Wilkinson - 05/25/2023 11:45 AM EDT Thank you for choosing [facility]. It has been a pleasure taking part in your medical care. Please follow up with your primary care provider as instructed. If your symptoms should persist or worsen, please contact your primary care physician, or in the case of an emergency proceed to the nearest Emergency Room for further care. If you have any questions about the care you received, please call [facility] at . Thank you again! TELLY Kline [facility] this [facility] Work Phone: 1(796) 622-713804-03-2024 Consult note* Alexander Gregory MD - 05/24/2023 9:12 PM EDTAssociated Order(s): Inpatient consult to Endocrinology Inpatient consult to Endocrinology Consult performed by: Alexander Gregory MD Consult ordered by: Jazmine Britt MD Assessment/Plan Severe hypercalcemia-chronic for more than 2 years with fluctuations Low normal PTH CT scans of chest and abdomen pelvis negative The patient's hypercalcemia has improved partly although the ionized calcium on this is higher total calcium has improved some she needs to be on calcitonin discussed with the hospitalist along with IV fluids. She also received Zometa earlier a week ago 4 mg IV Will repeat her PTH and see if there is any hyperparathyroidism that unfolds as the calcium improves Reason For Consult Severe hypercalcemia History Of Present Illness Linda Peralta is a 78 y.o. female with has a past medical history of Hypertension. presenting with severe hypercalcemia. Chief Complaint: hypercalcemia History Of Present Illness: The patient is well-known to me for several years she has adrenal insufficiency as well as hypercalcemia which started about 2 years ago but was under control with no treatment. She has a normal PTH to low normal PTH and has been checked for malignancy and nothing was found for last to 3 years. Shehad a routine blood test which found severe hypercalcemia ionized calcium was quite high a week ago and I sent her to the emergency room the nearest to her hospitalist. She was given IV fluids given IV Zometa and had a CT scan of her whole torso which found no malignancy or abnormal findings and was sent home She did not follow-up with me as she was supposed to but follow-up with PCP who checked her calciums again and send her back to the ER yesterday and the ER to still could not handle it did give her IV fluids and transferred her over to [facility]. Here she has been feeling well she has never felt any problems she has been completely asymptomatic throughout the whole episode She was treated in addition with IV fluids and started calcitonin. There is no cause yet determinedas to why she has the hypercalcemia As per admission Linda Peralta is a 78 y.o. female with a significant past medical history of hypercalcemia, [place]'s disease, HTN, GERD, PE/DVT on warfarin presenting to [facility] from [place] ER after found to have elevated ionized calcium on routine lab work. Patient presented to [place] for IV fluids, UAreportedly showed evidence of UTI and patient was started on Keflex 500 twice daily, received 1 dose prior to arrival, will cont here. Patient denies any acute fevers, chills, nausea or vomiting. Denies GI/ complaints but does have increased urinary frequency and urgency -that she attributes to drinking a lot of water per her doctor's recommendations. Patient seen ambulating through hospital with minimal assistance or issue. Chart review shows patient has been working with PT/OT for ongoing generalized muscular weakness and abnormal gait, noted close displaced fracture of fifth metatarsal healing without surgical intervention. 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 Gregory pt requesting to see him this visit, no history of thyroid disease, noted history of vitamin D deficiency added to a.m. labs, vital signs are stable. Plan of care was discussed with patient and daughter at bedside Souleymane Lazar [POA] [phone]; patient has advanced directives - not available in [employer], family encouraged to bring to hospital or fax to social work to be uploaded. CODE STATUS: DNR-CCA confirmed with patient, daughter, and nursing at bedside; we will do everything up to the point of cardiac arrest. Patient will be admitted under general medicine for the management of hypercalcemia, and UTI. Past Medical History She has a past medical history of Hypertension. Surgical History She has no past surgical history on file. Social History She reports that she has never smoked. She has never used smokeless tobacco. No history on file foralcohol use and drug use. Family History No family history on file. Allergies Amlodipine, Ciprofloxacin, and Penicillins Review of Systems Completely asymptomatic all ROS negative Past Medical History: Diagnosis Date Hypertension No past surgical history on file. Social History Socioeconomic History Marital status: Spouse name: Not on file Number of children: Not on file Years of education: Not on file Highest education level: Not on file 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 History Not on file Tobacco Use Smoking status: Never Smokeless tobacco: Never Substance and Sexual Activity Alcohol use: Not on file Drug use: Not on file Sexual activity: Not on file Other Topics Concern Not on file Social History Narrative Not on file Social Determinants of Health Financial Resource Strain: Low Risk (05/24/2023) Overall Financial Resource Strain (CARDIA) Difficulty of Paying Living Expenses: Not very hard Food Insecurity: Not on file Transportation Needs: No Transportation Needs (05/24/2023) PRAPARE - Transportation Lack of Transportation (Medical): No Lack of Transportation (Non-Medical): No Physical Activity: Not on file Stress: Not on file Social Connections: Not on file Intimate Partner Violence: Not on file Housing Stability: Low Risk (05/24/2023) Housing Stability Vital Sign Unable to Pay for Housing in the Last Year: No Number of Places Lived in the Last Year: 1 Unstable Housing in the Last Year: No Physical Exam Awake alert no distress lying in bed HEENT unremarkable No masses Heart regular Abdomen soft nontender Extremities no edema Neurologically no focal deficits ROS, PMH, FH/SH, surgical history and allergies have been reviewed. Last Recorded Vitals Blood pressure 117/77, pulse 102, temperature 36.1 C (97 F), resp. rate 16, height 1.575 m (5' 2),weight 64.1 kg (141 lb 5 oz), SpO2 92 %. Relevant Results Results from last 7 days Lab Units 05/24/23 0435 05/24/23 0306 GLUCOSE mg/dL 77 83 No results found for: HGBA1C Colin Gregory MD FACE Office phone - [phone] Fax - [phone] Address: [address] [place] [id number] Address: [address] [place] [address] 05/24/2023 9:13 PM [facility] Work Phone: [phone]) [phone] Consult note* Alexander Gregory MD - 05/24/2023 9:12 PM EDTAssociated Order(s): Inpatient consult to Endocrinology Inpatient consult to Endocrinology Consult performed by: Alexander Gregory MD Consult ordered by: Jazmine Britt MD Assessment/Plan Severe hypercalcemia-chronic for more than 2 years with fluctuations Low normal PTH CT scans of chest and abdomen pelvis negative The patient's hypercalcemia has improved partly although the ionized calcium on this is higher total calcium has improved some she needs to be on calcitonin discussed with the hospitalist along with IV fluids. She also received Zometa earlier a week ago 4 mg IV Will repeat her PTH and see if there is any hyperparathyroidism that unfolds as the calcium improves Reason For Consult Severe hypercalcemia History Of Present Illness Linda Peralta is a 78 y.o. female with has a past medical history of Hypertension. presenting with severe hypercalcemia. Chief Complaint: hypercalcemia History Of Present Illness: The patient is well-known to me for several years she has adrenal insufficiency as well as hypercalcemia which started about 2 years ago but was under control with no treatment. She has a normal PTH to low normal PTH and has been checked for malignancy and nothing was found for last to 3 years. Shehad a routine blood test which found severe hypercalcemia ionized calcium was quite high a week ago and I sent her to the emergency room the nearest to her hospitalist. She was given IV fluids given IV Zometa and had a CT scan of her whole torso which found no malignancy or abnormal findings and was sent home She did not follow-up with me as she was supposed to but follow-up with PCP who checked her calciums again and send her back to the ER yesterday and the ER to still could not handle it did give her IV fluids and transferred her over to [facility]. Here she has been feeling well she has never felt any problems she has been completely asymptomatic throughout the whole episode She was treated in addition with IV fluids and started calcitonin. There is no cause yet determinedas to why she has the hypercalcemia As per admission Linda Peralta is a 78 y.o. female with a significant past medical history of hypercalcemia, Moris's disease, HTN, GERD, PE/DVT on warfarin presenting to [facility] from [place] ER after found to have elevated ionized calcium on routine lab work. Patient presented to [place] for IV fluids, UAreportedly showed evidence of UTI and patient was started on Keflex 500 twice daily, received 1 dose prior to arrival, will cont here. Patient denies any acute fevers, chills, nausea or vomiting. Denies GI/ complaints but does have increased urinary frequency and urgency -that she attributes to drinking a lot of water per her doctor's recommendations. Patient seen ambulating through hospital with minimal assistance or issue. Chart review shows patient has been working with PT/OT for ongoing generalized muscular weakness and abnormal gait, noted close displaced fracture of fifth metatarsal healing without surgical intervention. 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 Gregory pt requesting to see him this visit, no history of thyroid disease, noted history of vitamin D deficiency added to a.m. labs, vital signs are stable. Plan of care was discussed with patient and daughter at bedside Souleymane Lazar [POA] [phone]; patient has advanced directives - [facility], family encouraged to bring to hospital or fax to social work to be uploaded. CODE STATUS: DNR-CCA confirmed with patient, daughter, and nursing at bedside; we will do everything up to the point of cardiac arrest. Patient will be admitted under general medicine for the management of hypercalcemia, and UTI. Past Medical History She has a past medical history of Hypertension. Surgical History She has no past surgical history on file. Social History She reports that she has never smoked. She has never used smokeless tobacco. No history on file foralcohol use and drug use. Family History No family history on file. Allergies Amlodipine, Ciprofloxacin, and Penicillins Review of Systems Completely asymptomatic all ROS negative Past Medical History: Diagnosis Date Hypertension No past surgical history on file. Social History Socioeconomic History Marital status: Spouse name: Not on file Number of children: Not on file Years of education: Not on file Highest education level: Not on file 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 History Not on file Tobacco Use Smoking status: Never Smokeless tobacco: Never Substance and Sexual Activity Alcohol use: Not on file Drug use: Not on file Sexual activity: Not on file Other Topics Concern Not on file Social History Narrative Not on file Social Determinants of Health Financial Resource Strain: Low Risk (05/24/2023) Overall Financial Resource Strain (CARDIA) Difficulty of Paying Living Expenses: Not very hard Food Insecurity: Not on file Transportation Needs: No Transportation Needs (05/24/2023) PRAPARE - Transportation Lack of Transportation (Medical): No Lack of Transportation (Non-Medical): No Physical Activity: Not on file Stress: Not on file Social Connections: Not on file Intimate Partner Violence: Not on file Housing Stability: Low Risk (05/24/2023) Housing Stability Vital Sign Unable to Pay for Housing in the Last Year: No Number of Places Lived in the Last Year: 1 Unstable Housing in the Last Year: No Physical Exam Awake alert no distress lying in bed HEENT unremarkable No masses Heart regular Abdomen soft nontender Extremities no edema Neurologically no focal deficits ROS, PMH, FH/SH, surgical history and allergies have been reviewed. Last Recorded Vitals Blood pressure 117/77, pulse 102, temperature 36.1 C (97 F), resp. rate 16, height 1.575 m (5' 2),weight 64.1 kg (141 lb 5 oz), SpO2 92 %. Relevant Results Results from last 7 days Lab Units 05/24/23 0435 05/24/23 0306 GLUCOSE mg/dL 77 83 No results found for: HGBA1C Colin Gregory MD FACE Office phone - [phone] Fax - [phone] Address: [address] [place] [id number] Address: [address] [id number] 05/24/2023 9:13 PM documented in this [facility] Work Phone: 1([phone]) 253-115504-03-2024 History and physical note* Shakira Antunez APRN-SPORTS TEAM MANAGER - 05/24/2023 2:11 AM EDT Medical Group History and Physical ASSESSMENT & PLAN: Hypercalcemia Hx donor nephrectomy Hx [place]'s disease - IVF 100ml/hr x1day; regular diet - tele x 1day d/t above dx - labs: PTH, ionized ca, vit D, CMP, CBC, lactate - Consult to Endocrine - known to Dr Gregory UTI symptom of increased frequency and urgency, no dysuria - Send UA - started on keflex 500 BID - from [place] [facility] - cont this admission - noted allergy, no rash or itching on exam - limited to cipro 500mg dose ? GERD - protonix History PE/DVT - on warfarin 2.5 daily - check coag and INR Generalized muscular weakness - Seen by PT OT -> for ongoing LE weakness left greater than right with associated left Trendelenburg pattern with ambulation, continues to have impairments with balance and gait, posture, strength per PT notes from 05/02/2023 - Patient walked from ER to 10th floor -> no significant deficits noted by staff - Feb 2023 chart review -> closed displaced fx of 5th metatarsal HTN - controlled - resume home meds CODE STATUS DNR Comfort Care arrest -patient wants everything done up to the point of cardiac arrest. Advanced directives -daughter will work with TCC to provide copies for upload POA - daughter - Souleymane Lazar [phone] VTE Prophylaxis: Resume warfarin Shakira Antunez, ROAD ROLLER OPERATOR [employer]-SPORTS TEAM MANAGER HISTORY OF PRESENT ILLNESS: Chief Complaint: hypercalcemia History Of Present Illness: Linda Peralta is a 78 y.o. female with a significant past medical history of hypercalcemia, [place]'s disease, HTN, GERD, PE/DVT on warfarin presenting to [facility] from [place] ER after found to have elevated ionized calcium on routine lab work. Patient presented to [place] for IV fluids, UAreportedly showed evidence of UTI and patient was started on Keflex 500 twice daily, received 1 dose prior to arrival, will cont here. Patient denies any acute fevers, chills, nausea or vomiting. Denies GI/ complaints but does have increased urinary frequency and urgency -that she attributes to drinking a lot of water per her doctor's recommendations. Patient seen ambulating through hospital with minimal assistance or issue. Chart review shows patient has been working with PT/OT for ongoing generalized muscular weakness and abnormal gait, noted close displaced fracture of fifth metatarsal healing without surgical intervention. 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 Gregory pt requesting to see him this visit, no history of thyroid disease, noted history of vitamin D deficiency added to a.m. labs, vital signs are stable. Plan of care was discussed with patient and daughter at bedside Souleymane Lazar [POA] [phone]; patient has advanced directives - not available [facility], family encouraged to bring to hospital or fax to social work to be uploaded. CODE STATUS: DNR-CCA confirmed with patient, daughter, and nursing at bedside; we will do everything up to the point of cardiac arrest. Patient will be admitted under general medicine for the management of hypercalcemia, and UTI. Review of systems: 10 point review of systems is otherwise negative except as mentioned above. 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 (): seen by Dr. Miller, ongoing nausea, vomiting, diarrhea, treated with steroids despite cortrosyn stim test and was felt to have improved clinically (): seen by Dr. Mancini ([facility]), on florinef 0.1 mg [facility], prednisone 5 mg Sat [place]. (): admitted for loss of consciousness, orthostatic, Ca=15.0 mg/dl, BUN=44 mg/dl, Cr=2.1 mg/dl, also had UTI with gm pos organism, Rx Bactrim, (02/26/09): readmitted for Ca=14.2 mg/dl, BUN=44 mg/dl, Creat=2.3 mg/dl, felt OK, but ther for workup. Sent home on prednisone 10 mg daily in AM. * Cortrosyn stim (): baseline=none, 30min = 6.5 ug/ml, specimen mislabelled? (): baseline = 5.7ug/dl, 30min = 17.1 ug/ml (): baseline=19.4 ug/dl, 30min = 24.0 ug/ml (08/27/09): baseline=9.7 ug/dl, 30min=16.9 ug/ml, 60min=21.5 ug/dl Anemia in chronic kidney disease Aortic valve stenosis Asthma 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 Gastroesophageal reflux disease Generalized muscle weakness History of malignant neoplasm History of pulmonary embolism Hyperlipidemia, unspecified Hypertensive kidney disease with stage 3b chronic kidney disease ([facility]) DVT (deep venous thrombosis) ([facility]) Overview Signed 05/24/2023 2:02 AM by NICOLE Ahmadi 2009 [place]'s disease ([facility]) Overview Signed 05/24/2023 2:02 AM by NICOLE Ahmadi dx by endo years ago Primary hypertension Pure hypercholesterolemia Urinary tract infection, site not specified Past Surgical History: No past surgical history on file. Social History: She reports that she has never smoked. She has never used smokeless tobacco. No history on file foralcohol use and drug use. Family History: No family history on file. Allergies: Amlodipine, Ciprofloxacin, and Penicillins OBJECTIVE: Last Recorded Vitals: Vitals: 05/24/23 0140 05/24/23 0141 BP: 137/84 137/84 BP Location: Left arm Left arm Patient Position: Lying Lying Pulse: 81 81 Resp: 14 14 Temp: 36.4 C (97.5 F) 36.4 C (97.5 F) TempSrc: Temporal Temporal SpO2: 94% 94% Weight: 64.1 kg (141 lb 5 oz) Height: 1.575 m (5' 2) Last I/O: No intake/output data recorded. Physical Exam Vitals and nursing note reviewed. Constitutional: Appearance: Normal appearance. HENT: Head: Normocephalic and atraumatic. Nose: Nose normal. Mouth/Throat: Mouth: Mucous membranes are moist. Pharynx: Oropharynx is clear. Eyes: Extraocular Movements: Extraocular movements intact. Conjunctiva/sclera: Conjunctivae normal. Pupils: Pupils are equal, round, and reactive to light. Cardiovascular: Rate and Rhythm: Normal rate and regular rhythm. Pulses: Normal pulses. Heart sounds: Normal heart sounds. Pulmonary: Effort: Pulmonary effort is normal. Breath sounds: Normal breath sounds. Abdominal: General: Abdomen is flat. Bowel sounds are normal. Palpations: Abdomen is soft. Musculoskeletal: General: Normal range of motion. Cervical back: Normal range of motion and neck supple. Skin: General: Skin is warm and dry. Capillary Refill: Capillary refill takes less than 2 seconds. Neurological: General: No focal deficit present. Mental Status: She is alert and oriented to person, place, and time. Mental status is at baseline. Psychiatric: Mood and Affect: Mood normal. Behavior: Behavior normal. Thought Content: Thought content normal. Judgment: Judgment normal. Scheduled Medications PRN Medications PRN medications: acetaminophen OR acetaminophen OR acetaminophen, ondansetron OR ondansetron Continuous Medications sodium chloride 0.9%, 100 mL/hr Outpatient Medications: Prior to Admission medications Medication Sig Start Date End Date Taking? Authorizing Provider hydrocortisone (Cortef) 10 mg tablet Take 2 tablets (20 mg) by mouth once daily. 03/23/20 Yes Historical Provider, warfarin (Coumadin) 2.5 mg tablet Take 1 tablet (2.5 mg) by mouth once daily. 03/23/20 Yes HistoricalProvider, cephalexin (Keflex) 500 mg capsule Take 1 capsule (500 mg) by mouth 2 times a day. Historical Provider, simvastatin (Zocor) 20 mg tablet Take 1 tablet (20 mg) by mouth once daily at bedtime. Historical Provider, LABS AND IMAGING: Labs: No results found for this or any previous visit (from the past 24 hour(s)). Imaging: No orders to display [facility] Work Phone: 1(364) 509-832304-03-2024 History and physical note* NICOLE Ahmadi - 05/24/2023 2:11 AM EDT Medical Group History and Physical ASSESSMENT & PLAN: Hypercalcemia Hx donor nephrectomy Hx [place]'s disease - IVF 100ml/hr x1day; regular diet - tele x 1day d/t above dx - labs: PTH, ionized ca, vit D, CMP, CBC, lactate - Consult to Endocrine - known to Dr Gregory UTI symptom of increased frequency and urgency, no dysuria - Send UA - started on keflex 500 BID - from [place] ER - cont this admission - noted allergy, no rash or itching on exam - limited to cipro 500mg dose ? GERD - protonix History PE/DVT - on warfarin 2.5 daily - check coag and INR Generalized muscular weakness - Seen by PT OT -> for ongoing LE weakness left greater than right with associated left Trendelenburg pattern with ambulation, continues to have impairments with balance and gait, posture, strength per PT notes from 05/02/2023 - Patient walked from ER to 10th floor -> no significant deficits noted by staff - Feb 2023 chart review -> closed displaced fx of 5th metatarsal HTN - controlled - resume home meds CODE STATUS DNR Comfort Care arrest -patient wants everything done up to the point of cardiac arrest. Advanced directives -daughter will work with [facility] to provide copies for upload POA - daughter - Souleymane Lazar [phone] VTE Prophylaxis: Resume warfarin Shakira Antunez, ROAD ROLLER OPERATOR [employer]-SPOR[employer] TEAM MANAGER HISTORY OF PRESENT ILLNESS: Chief Complaint: hypercalcemia History Of Present Illness: Linda Peralta is a 78 y.o. female with a significant past medical history of hypercalcemia, [place]'s disease, HTN, GERD, PE/DVT on warfarin presenting to [facility] from [place] ER after found to have elevated ionized calcium on routine lab work. Patient presented to [place] for IV fluids, UAreportedly showed evidence of UTI and patient was started on Keflex 500 twice daily, received 1 dose prior to arrival, will cont here. Patient denies any acute fevers, chills, nausea or vomiting. Denies GI/ complaints but does have increased urinary frequency and urgency -that she attributes to drinking a lot of water per her doctor's recommendations. Patient seen ambulating through hospital with minimal assistance or issue. Chart review shows patient has been working with PT/OT for ongoing generalized muscular weakness and abnormal gait, noted close displaced fracture of fifth metatarsal healing without surgical intervention. 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 Gregory pt requesting to see him this visit, no history of thyroid disease, noted history of vitamin D deficiency added to a.m. labs, vital signs are stable. Plan of care was discussed with patient and daughter at bedside Souleymane Lazar [POA] [phone]; patient has advanced directives - not available [facility], family encouraged to bring to hospital or fax to social work to be uploaded. CODE STATUS: DNR-CCA confirmed with patient, daughter, and nursing at bedside; we will do everything up to the point of cardiac arrest. Patient will be admitted under general medicine for the management of hypercalcemia, and UTI. Review of systems: 10 point review of systems is otherwise negative except as mentioned above. 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 (): seen by Dr. Miller, ongoing nausea, vomiting, diarrhea, treated with steroids despite cortrosyn stim test and was felt to have improved clinically (): seen by Dr. Mancini ([facility]), on florinef 0.1 mg MWF, prednisone 5 mg Tu Th Sat [place]. (): admitted for loss of consciousness, orthostatic, Ca=15.0 mg/dl, BUN=44 mg/dl, Cr=2.1 mg/dl, also had UTI with gm pos organism, Rx Bactrim, (02/26/09): readmitted for Ca=14.2 mg/dl, BUN=44 mg/dl, Creat=2.3 mg/dl, felt OK, but ther for workup. Sent home on prednisone 10 mg daily in AM. * Cortrosyn stim (): baseline=none, 30min = 6.5 ug/ml, specimen mislabelled? (): baseline = 5.7ug/dl, 30min = 17.1 ug/ml (): baseline=19.4 ug/dl, 30min = 24.0 ug/ml (08/27/09): baseline=9.7 ug/dl, 30min=16.9 ug/ml, 60min=21.5 ug/dl Anemia in chronic kidney disease Aortic valve stenosis Asthma 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 Gastroesophageal reflux disease Generalized muscle weakness History of malignant neoplasm History of pulmonary embolism Hyperlipidemia, unspecified Hypertensive kidney disease with stage 3b chronic kidney disease ([facility]) DVT (deep venous thrombosis) ([facility]) Overview Signed 05/24/2023 2:02 AM by NICOLE Ahmadi 2011 Moris's disease ([facility]) Overview Signed 05/24/2023 2:02 AM by NICOLE Ahmadi dx by endo years ago Primary hypertension Pure hypercholesterolemia Urinary tract infection, site not specified Past Surgical History: No past surgical history on file. Social History: She reports that she has never smoked. She has never used smokeless tobacco. No history on file foralcohol use and drug use. Family History: No family history on file. Allergies: Amlodipine, Ciprofloxacin, and Penicillins OBJECTIVE: Last Recorded Vitals: Vitals: 05/24/23 0140 05/24/23 0141 BP: 137/84 137/84 BP Location: Left arm Left arm Patient Position: Lying Lying Pulse: 81 81 Resp: 14 14 Temp: 36.4 C (97.5 F) 36.4 C (97.5 F) TempSrc: Temporal Temporal SpO2: 94% 94% Weight: 64.1 kg (141 lb 5 oz) Height: 1.575 m (5' 2) Last I/O: No intake/output data recorded. Physical Exam Vitals and nursing note reviewed. Constitutional: Appearance: Normal appearance. HENT: Head: Normocephalic and atraumatic. Nose: Nose normal. Mouth/Throat: Mouth: Mucous membranes are moist. Pharynx: Oropharynx is clear. Eyes: Extraocular Movements: Extraocular movements intact. Conjunctiva/sclera: Conjunctivae normal. Pupils: Pupils are equal, round, and reactive to light. Cardiovascular: Rate and Rhythm: Normal rate and regular rhythm. Pulses: Normal pulses. Heart sounds: Normal heart sounds. Pulmonary: Effort: Pulmonary effort is normal. Breath sounds: Normal breath sounds. Abdominal: General: Abdomen is flat. Bowel sounds are normal. Palpations: Abdomen is soft. Musculoskeletal: General: Normal range of motion. Cervical back: Normal range of motion and neck supple. Skin: General: Skin is warm and dry. Capillary Refill: Capillary refill takes less than 2 seconds. Neurological: General: No focal deficit present. Mental Status: She is alert and oriented to person, place, and time. Mental status is at baseline. Psychiatric: Mood and Affect: Mood normal. Behavior: Behavior normal. Thought Content: Thought content normal. Judgment: Judgment normal. Scheduled Medications PRN Medications PRN medications: acetaminophen OR acetaminophen OR acetaminophen, ondansetron OR ondansetron Continuous Medications sodium chloride 0.9%, 100 mL/hr Outpatient Medications: Prior to Admission medications Medication Sig Start Date End Date Taking? Authorizing Provider hydrocortisone (Cortef) 10 mg tablet Take 2 tablets (20 mg) by mouth once daily. 03/23/20 Yes Historical Provider, warfarin (Coumadin) 2.5 mg tablet Take 1 tablet (2.5 mg) by mouth once daily. 03/23/20 Yes HistoricalProvider, cephalexin (Keflex) 500 mg capsule Take 1 capsule (500 mg) by mouth 2 times a day. Historical Provider, simvastatin (Zocor) 20 mg tablet Take 1 tablet (20 mg) by mouth once daily at bedtime. Historical Provider, LABS AND IMAGING: Labs: No results found for this or any previous visit (from the past 24 hour(s)). Imaging: No orders to display [facility] Work Phone: 1(804) 599-242704-02-2024 Telephone encounter Note* Telephone Encounter - Miladys Freed MD - 05/23/2023 6:53 PM EDT Called by lab regarding patient's critical ionized calcium level of 1.69 which is up from 1.6 on 05/11. Noted patient was sent to the ER by her shoe reconditioner with this lower reading on 05/11. Called patient who states that she does feel dizzy, mild confusion, muscle weakness, increased thirst. Recommended patient return to the ER for further workup and treatment. Patient will have her daughter drive her. Called and spoke with Dr Lott at [facility] ER and was given report. [facility] Work Phone: 1(126) 639-878004-02-2024 Miscellaneous Notes* Telephone Encounter - Miladys Freed MD - 05/23/2023 6:53 PM EDT Called by lab regarding patient's critical ionized calcium level of 1.69 which is up from 1.6 on 05/11. Noted patient was sent to the ER by her shoe reconditioner with this lower reading on 05/11. Called patient who states that she does feel dizzy, mild confusion, muscle weakness, increased thirst. Recommended patient return to the ER for further workup and treatment. Patient will have her daughter drive her. Called and spoke with Dr Lott at [facility] ER and was given report. [facility] Discharge summary Author Ankush Noguera [facility] May 23, 2023 10:48pm Note Date/Time May 23, 2023 10:4 2pm [facility] Medical Records Department [address] [place] [address] Emergency Department Summary 05/23/23 MR#: [id number] Acct: [id number] Name: LINDA PERALTA Rep #:[id number] : 1945 78 From: Ankush Noguera DO PCP: Dr. 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 [facility]. Patient was seen about a week ago for similar symptoms in the emergency room due to elevated ionized calcium. Her symptoms that point were weakness which is mild difficulty walking, body aches. She was treated with Zometa at that point and some IV fluids and states she was here in the ER for about 9 hours and then discharged home. She states she was instructed to follow-up with her primary care physician however referring to theER physicians notes she saw her she was supposed to follow-up with Dr. Gregory. She did not cannot follow-up today with her primary care physician they did repeat lab work and her ionized calcium was similar to was a week ago and she was immediately sent back to the emergency room. Her symptoms are mild today. She is very pleasant. She is not confused. She is alert and awake. She is moving all 4 extremities. She does states she feels generally weak. 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 MVP (mitral valve prolapse) Orthostatic hypotension Osteopenia determined by x-ray Pyelonephritis Recurrent deep vein thrombosis (DVT) Home Medications nitroglycerin 0.4 mg sublingual tablet 0.4 mg sublingual Q5-15M PRN Cardiac/Chest Pain 05/21/18 [History Last Taken Unknown] acetaminophen 500 mg tablet 1,000 mg (2 x 500 mg) PO Q6H PRN Pain Score 1-10 04/08/20 [Rx Last Taken 04/07/20 21:32] simvastatin 20 mg tablet 20 mg PO QHS 07/17/20 [History Last Taken Unknown] denosumab 60 mg/mL subcutaneous syringe (Prolia) 60 mg subcut [id number] #1 mL 11/24/22 [Rx Last Taken Unknown] hydrocortisone 10 mg tablet 20 mg (2 x 10 mg) PO DAILY@0600 #90 tabs 11/24/22 [Rx Last Taken Unknown] amlodipine 2.5 mg tablet 2.5 mg PO DAILY #90 tabs 03/03/23 [Rx Last Taken Unknown] warfarin 2.5 mg tablet 2.5 mg PO DAILY@1700 #120 tabs 04/27/23 [Rx Last Taken Unknown] cephalexin 500 mg capsule 500 mg PO BID 05/23/23 [History Last Taken Unknown] dupilumab 200 mg/1.14 mL subcutaneous pen injector (Ophthotechixent) 200 mg subcut .COMPLEX 05/23/23 [History Last Taken Unknown] fluticasone propionate 50 mcg/actuation nasal spray,suspension 2 spray intranasal DAILY 05/23/23 [History Last Taken Unknown] meclizine 25 mg tablet 25 mg PO Q6H PRN PRN dizziness 05/23/23 [History Last Taken Unknown] Allergy/AdvReac Type Severity Reaction Status Date / Time ciprofloxacin [From Cipro] Allergy Rash Verified 05/23/23 20:04 Penicillins Allergy Rash Verified 05/23/23 20:04 Family History Father CVA (cerebral vascular accident) Mother Myocardial infarction, Onset Age: 87 Other History of DVT (deep vein 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 Surgical History H/O partial nephrectomy (2009) H/O total cystectomy History of bladder repair surgery History of left heart catheterization (04/2009) History of left nephrectomy (2000) History of total abdominal hysterectomy Social History Smoking Status: Never smoker alcohol intake: never substance use type: does not use caffeine: Yes what type of physical activity do you participate in: walking seatbelt use: always do you feel safe at home: Yes additional social history: [place]- Retired patient is retired [employer] [facility] [employer] [facility] ED Constitutional Constitutional ED: Denies chills, fever(s) or sweats Eyes Eyes: Denies blurry vision or change in vision ENT ENT ED: Denies ear pain or sore throat Cardiovascular Cardiovascular: Denies chest pain, palpitations or racing heartbeat Respiratory/Chest Respiratory/Chest: Denies cough, dyspnea or sputum Gastrointestinal Gastrointestinal: Denies abdominal pain, constipation, diarrhea, nausea or vomiting Genitourinary Genitourinary ED: Denies dysuria, hematuria or urinary frequency Musculoskeletal Musculoskeletal: Reports myalgias; Denies arthralgias or neck pain Integumentary Denies abscess, Abrasions or rash Neurologic Neurologic: Denies headache(s), paresthesias or weakness Psychiatric Psychiatric: Denies anxiety, depression, suicidal ideation or suicidal thoughts Endocrine Endocrinology: Denies polydipsia or polyuria EXAM Physical Exam Const Vital Signs: 05/23/23 20:02 05/23/23 20:16 05/23/23 22:02 Temperature 97.8 F Temperature Source Temporal Pulse Rate 109 H 85 Respiratory Rate 16 19 H Respiratory Effort Normal Respiratory Pattern Normal Blood Pressure 115/77 141/107 H Blood Pressure Mean 89 118 Pulse Ox 95 93 Oxygen Delivery Method Room Air Room Air Positive well nourished and well developed General Appearance ED: well developed and NAD; Negative for pallor HEENT Reports moist mucous membranes trauma Eyes PERRL and EOMs intact bilaterally General Eye ED: Negative for pale conjunctiva Chest Wall inspection of chest normal Resp normal respiratory effort and clear to auscultation bilaterally Auscultation: Negative for rales, rhonchi or wheezes Cardio regular rate and regular rhythm Extremity normal to inspection General Extremety ED: Yes edema General Extremity: edema Neuro oriented x3 and CN's II-XII intact bilaterally Sensorium / Orientation: alert Motor Exam: strength 5/5 throughout Psych mental status grossly normal Skin no rashes or lesions noted General Skin Exam: Negative for jaundice or pallor MDM MDM MDM Narrative Medical decision making narrative: Patient was pending today with elevated calcium levels. Her ionized calcium waselevated outside the normal range on 05/12/2023 at 1.60 which is not much different than it was earlier today. Patient states she is confused but was able to give a full history over the last week with all the times and dates associated it does not appear to be confused in any way. She also states she feels generally weak and uses her arms and legs to demonstrate this. She has 5 5 strength throughout. Vital signs are stable and she is afebrile. She was given IV fluids and we obtained some lab work today and her CBC shows no white blood cell count 9.5. Hemoglobin 14.5. Platelets are 271. Creatinine near baseline at 2.06. AST 64, ALT 62 of unknown significance. High-sensitivity troponin is 32 and her EKG on my interpretation showed normal sinus rhythm without any evidence of ischemic change or ectopy. Chest x-ray on my interpretation shows no acute process. Discussed the case with Dr. Gregory and hestated that the Zometa that the patient received last week would really take about 5 to 7 days to kick in. He was confused as to why she did not follow-up with him and I counseled him that she felt she was counseled to follow-up with aprimary care provider at night that she got back to the emergency room today dueto the repeat lab work. He recommended admission for IV fluids and offered to have the patient admitted to [facility] versus here at [facility] however patient expressed her previous history of Dr. Vann from endocrinology was not good and she preferred to be transferred over to [place] where her shoe reconditioner is for further testing and treatment. Currently awaiting follow-up call from the transfer line. She will need to be transferred but I believe she is stable for transfer via car and Dr. Gregory agreed but we are currently awaiting a bed assignment. Patient will be transferred when a bed is obtained. Impression: 1. Hypercalcemia 2. Generalized weakness 3. History of Moris's disease Lab Data Labs: Laboratory Results - last 24 hr 05/23/23 20:30 WBC 9.5 RBC 5.07 Hgb 14.5 Hct 43.3 MCV 85.4 MCH 28.6 MCHC 33.5 RDW Std Deviation 44.1 H RDW Coeff of Slava 14.2 Plt Count 271 MPV 10.9 Immature Gran % (Auto) 0.900 Neut % (Auto) 59.7 Lymph % (Auto) 19.2 Chase % (Auto) 9.7 Eos % (Auto) 9.7 H Baso % (Auto) 0.8 Absolute Neuts (auto) 5.7 Absolute Lymphs (auto) 1.83 Nucleated RBC % 0 PT 23.0 H INR 2.1 Sodium 136 Potassium 4.0 Chloride 105 Carbon Dioxide 23.0 Anion Gap 8 BUN 39 H Creatinine 2.06 H Estim Creat Clear Calc 19.14 Est GFR (MDRD) Af Amer 30 L Est GFR (MDRD) Non-Af 25 L BUN/Creatinine Ratio 18.9 Glucose 144 H Calcium 11.9 H Total Bilirubin 0.40 AST 64 H ALT 62 H Alkaline Phosphatase 76 Troponin I High Sens 32 Total Protein 5.9 L Albumin 2.9 L Globulin 3.0 Albumin/Globulin Ratio 1.0 Radiography Diagnostic Testing: Clinical Impression(s) from Imaging Studies Chest X-Ray 05/23/23 20:44 IMPRESSION: Normal x-ray examination of the chest. Electronically Signed: Caridad Rendon MD at 21:40 EDT , Discharge Plan Triage Chief Complaint: Abn Labs ED Provider: Ankush Noguera Dx/Rx/DC Orders Prescriptions: No Action nitroglycerin 0.4 mg tablet, sublingual 0.4 mg SUBLINGUAL Q5-15M PRN (Reason: Cardiac/Chest Pain) simvastatin 20 mg tablet 20 mg PO QHS hydrocortisone 10 mg tablet 20 mg PO DAILY@0600 Qty: 90 6RF Rx Instructions: 2 tabs qam 1 tab qpm Prolia 60 mg/mL syringe 60 mg subcut [id number] Qty: 1 1RF amlodipine 2.5 mg tablet 2.5 mg PO DAILY Qty: 90 3RF Patient Comments: pt states BP is low so she isnt taking it. acetaminophen 500 MG tablet 1,000 mg PO Q6H PRN (Reason: Pain Score 1-10) 0RF meclizine 25 mg tablet 25 mg PO Q6H PRN PRN (Reason: dizziness) cephalexin 500 mg capsule 500 mg PO BID fluticasone propionate 50 mcg/actuation spray,suspension 2 spray INTRANASAL DAILY Dupixent Pen 200 mg/1.14 mL pen injector 200 mg subcut .COMPLEX Rx Instructions: 200 mg subcutaneously Every other week; warfarin 2.5 mg tablet 2.5 mg PO DAILY@1700 Qty: 120 3RF Protocol: Dose Management Condition: Monday Dose/Route: 2.5 mg Instruction: 1 x 2.5 mg tablet Condition: Monday Dose/Route: 5 mg Instruction: 2 x 2.5 mg tablets Condition: Monday Dose/Route: 5 mg Instruction: 2 x 2.5 mg tablets Condition: Monday Dose/Route: 2.5 mg Instruction: 1 x 2.5 mg tablet Condition: Dose/Route: 2.5 mg Instruction: 1 x 2.5 mg tablet Condition: Monday Dose/Route: 2.5 mg Instruction: 1 x 2.5 mg tablet Condition: Monday Dose/Route: 2.5 mg Instruction: 1 x 2.5 mg tablet Protocol Text: Adjustment Start Date: Monday04/12/23 INR Value: 3.0 INR Date: 04/12/23 Recheck Date: 05/03/23 Rx Instructions: daily or as directed Primary Care Provider: Amos Floyd Referrals: Amos Floyd MD [Primary Care Provider] - What to do if you have Problems For any increased pain, shortness of breath, bleeding, nausea or vomiting, chestpain, or any unexpected problems, contact your Primary Care Provider. Call [facility] ([phone]) or report to the closest Emergency Room. Call 911 if necessary. 05/23/232247 <Electronically signed by Ankush Noguera DO> Cosigner Signature (if applicable): CC: Dr. Amos Floyd MD ~ Signed [facility] Work Phone: 1(250) 561-187504-02-2024 History of Present illness Narrative* Rocio Elizalde, ROAD ROLLER OPERATOR [employer].SPORTS TEAM MANAGER - 05/23/2023 12:24 PM EDT CC: Patient presents with: ED Follow-up: [facility] ER HPI Linda Peralta is a 78 year old female who presents today with her daughter for above. Patient hadlab work ordered by her shoe reconditioner Dr. Gregory on 05/14 which revealed critically high Calcium/ionized calcium. She was instructed to go to the ER immediately that day for treatment. She was treated at [facility] ER with IV fluids and Zometa infusion. At that time she had been getting increasingly confused and weak along with significant hypotension. Since discharge home there has been minor improvement in symptoms with new onset severe body aches, blurred vision and lightheadedness. She is no longer on Norvasc, hypotension has resolved. Denies any worsening symptoms. She has not scheduled follow-up with Dr. Gregory. Requesting lab orders to have calcium rechecked today. Review of Systems Constitutional: Positive for appetite change and fatigue. Negative for chills and diaphoresis. Eyes: Positive for visual disturbance. Respiratory: Negative for cough, shortness of breath and wheezing. Cardiovascular: Negative for chest pain, palpitations and leg swelling. Gastrointestinal: Negative for blood in stool, diarrhea, nausea and vomiting. Genitourinary: Positive for frequency and urgency. Negative for decreased urine volume, difficulty urinating, dysuria and hematuria. Musculoskeletal: Positive for arthralgias and myalgias. Neurological: Positive for weakness and light-headedness. Negative for tremors, syncope, facial asymmetry, speech difficulty, numbness and headaches. Psychiatric/Behavioral: Positive for confusion. Negative for agitation, hallucinations and sleep disturbance. The patient is not nervous/anxious. PAST MEDICAL HISTORY Diagnosis Date Age-related osteoporosis with current pathological fracture with routine healing 01/19/2023 Anemia 08/26/2009 ASHD (arteriosclerotic heart disease) 04/25/2009 Asthma Benign neoplasm of colon 04/26/2005 Tubular adenoma Chronic diarrhea 03/15/2010 Chronic sphenoidal sinusitis 09/15/2003 Closed fracture of bone of right foot 11/08/2022 Collagenous colitis 03/30/2010 Contact dermatitis and other eczema, due to unspecified cause 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[place] disease Cystocele, midline 07/23/2007 Diverticulosis of colon (without mention of hemorrhage) DVT (deep venous thrombosis) ([facility]) 03/23/2012 DVT of lower extremity (deep venous thrombosis) ([facility]) 03/27/2009 Esophageal reflux Gallstones 03/06/2016 Hypercalcemia 03/19/2009 Hypertension NSTEMI (non-ST elevated myocardial infarction) ([facility]) 04/27/2009 Cardiac cath normal Other adrenal hypofunction [...] W/COLLJ SPEC WHEN PFRMD 03/26/2010 Inpatient at [facility] ESOPHAGOGASTRODUODENOSCOPY TRANSORAL DIAGNOSTIC 02/2002 EGD ESOPHAGOGASTRODUODENOSCOPY TRANSORAL [...] BSO ALLERGIES Cipro [Ciprofloxacin] and Penicillins MEDICATIONS dupilumab 300 mg/2 mL subcutaneous pen injector (SpaceIL) .[id number] meclizine (ANTIVERT) 25 mg tab Take 1 tablet by mouth every 6 hours as needed (dizziness). fluticasone (FLONASE) 50 mcg/actuation nasal spray Use 2 Sprays in each nostril once daily. Rinse mouth after use. hydrOXYzine HCl (ATARAX) 50 mg tablet Take 1 tablet by mouth at bedtime as needed for itching/rash. hydrocortisone (CORTEF) 10 mg tablet Take 10 mg by mouth two times a day. As directed per endocrinology. simvastatin (ZOCOR) 20 [...] Age of Onset Coronary Artery Disease Mother [place] at 87y.o. Hypertension Mother Stroke Father Coronary [...] Topics Alcohol use: No Drug use: No BP 106/82 Pulse 72 Resp 14 Wt 63.5 kg (140 lb) SpO2 96% BMI 25.12 kg/m Physical Exam Vitals reviewed. Constitutional: General: She is not in acute distress. Appearance: She is not ill-appearing or toxic-appearing. Eyes: Conjunctiva/sclera: Conjunctivae normal. Pupils: Pupils are equal, round, and reactive to light. Cardiovascular: Rate and Rhythm: Normal rate and regular rhythm. Heart sounds: Murmur heard. Pulmonary: Effort: Pulmonary effort is normal. Breath sounds: Normal breath sounds. No wheezing, rhonchi or rales. Abdominal: Palpations: Abdomen is soft. Tenderness: There is no abdominal tenderness. There is no right CVA tenderness or left CVA tenderness. Musculoskeletal: General: No swelling. Skin: General: Skin is warm and dry. Neurological: Mental Status: She is alert and oriented to person, place, and time. Cranial Nerves: Cranial nerves 2-12 are intact. Motor: Motor function is intact. Coordination: Coordination is intact. Gait: Gait is intact. Deep Tendon Reflexes: Reflexes are normal and symmetric. Psychiatric: Attention and Perception: Attention normal. Mood and Affect: Mood and affect normal. Speech: Speech normal. Behavior: Behavior normal. Behavior is cooperative. Thought Content: Thought content normal. Cognition and Memory: Cognition normal. Judgment: Judgment normal. DATA REVIEWED: Most recent labs Outside chart from [facility] ER reviewed. ASSESSMENT/PLAN: 1. Hypercalcemia - ICD9: 275.42, ICD10: E83.52 (primary diagnosis) Symptoms improved. Needs rechecked. Patient needs to follow-up with Dr. Gregory with endocrinology ANNA - BASIC METABOLIC PNL - CALCIUM IONIZED BLOOD - PHOSPHORUS INORGANIC - MAGNESIUM BLD 2. Fatigue, unspecified type - ICD9: 780.79, ICD10: R53.83 Multifactorial, see above 3. Urinary frequency - ICD9: 788.41, ICD10: R35.0 acute - UA DIP, URINE (POC) positive for small blood and small leuks - send URINE CULTURE - start treatment with Keflex, see orders 4. Myalgias - ICD9: 729.1, ICD10: M79.10 Secondary to Zometa infusion 5. Confusion - ICD9: 298.9, ICD10: R41.0 improved - UA DIP, URINE (POC) - URINE CULTURE 6. Weakness - ICD9: 780.79, ICD10: R53.1 improved Prescription instructions reviewed with patient as applicable. Potential red flag symptoms discussed with the patient. Reviewed appropriate action plan to take if red flag symptoms occur. Patient agreeable to treatment plan. Rocio Elizalde APRN.SPORTS TEAM MANAGER [facility] Miscellaneous Notes* Telephone Encounter - Carlos Roe RN - 05/23/2023 11:37 AM EDT Pt calling in again regarding below. Scheduled ER f/u visit for today at 1220 with Rocio Elizalde. * Telephone Encounter - Milagros Burton LPN - 05/22/2023 8:49 AM EDT Patient calling with question she was in [facility] ER on 05/14. She was dehydrated and low blood pressure.She said her calcium level was elevated, she was given IV medication to lower the calcium. Patient asking if she should do more lab work to recheck her calcium level? Please advise documented [facility]04-[facility]24 Miscellaneous Notes* Telephone Encounter - Carlos Roe RN - 05/23/2023 10:42 AM EDT Pt calling in again about repeating labs and concerns. ER f/u appt given for today with Rocio Elizalde at 1220 pm. documented in this encounterR[facility]03-25-2024 Discharge summary Author Juan Alberto Mcclendon [facility] May 15, 2023 8:38pm Note Date/Time May 15, 2023 3:1 7pm [facility] Medical Records Department [address] [place] [address] Emergency Department Summary 05/15/23 MR#: [id number] Acct: [id number] Name: LINDA PERALTA Rep #:[id number] : 1945 78 From: Juan Alberto Mcclendon MD PCP: Dr. Amos Floyd MD Status:R EG ER Location: ED HPI History of Present Illness Chief Complaint: Abn Labs Informant: patient and family (daughter) Narrative Narrative: Patient sent in by her shoe reconditioner Dr. Gregory at for high calcium level that was drawn before the weekend on Monday, today being Monday afternoon. She states she has felt weak and tired for the last 3 days or so, occasionally lightheaded, but nothing to the point where she would have come to the hospital if she was not directed to come here because of her abnormal labs. She has Moris's syndrome, she is on daily hydrocortisone 20 mg once daily which has not changed lately, and other than some sinus congestion and a minor nonproductive cough she denies any illness recently. Last time she checked her blood pressure it was 102 systolic a couple days ago. She has not been feeling like she typically does when she is hypotensive which she has had issues within the past, partly which led to the diagnosis of Moris's disease, however here in triage her blood pressure 68/51. 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 MVP (mitral valve prolapse) Orthostatic hypotension Osteopenia determined by x-ray Pyelonephritis Recurrent deep vein thrombosis (DVT) Home Medications nitroglycerin 0.4 mg sublingual tablet 0.4 mg sublingual Q5-15M PRN Cardiac/Chest Pain 05/21/18 [History Last Taken Unknown] acetaminophen 500 mg tablet 1,000 mg (2 x 500 mg) PO Q6H PRN Pain Score 1-10 04/08/20 [Rx Last Taken 04/07/20 21:32] simvastatin 20 mg tablet 20 mg PO QHS 07/17/20 [History Last Taken Unknown] levocetirizine 5 mg tablet 5 mg PO DAILY 11/16/21 [History Last Taken Unknown] cholecalciferol (vitamin D3) 25 mcg (1,000 unit) capsule 50 mcg PO DAILY 01/25/22 [History Last Taken Unknown] denosumab 60 mg/mL subcutaneous syringe (Prolia) 60 mg subcut [id number] #1 mL 11/24/22 [Rx Last Taken Unknown] hydrocortisone 10 mg tablet 20 mg (2 x 10 mg) PO DAILY@0600 #90 tabs 11/24/22 [Rx Last Taken Unknown] amlodipine 2.5 mg tablet 2.5 mg PO DAILY #90 tabs 03/03/23 [Rx Last Taken Unknown] warfarin 2.5 mg tablet 2.5 mg PO DAILY@1700 #120 tabs 04/27/23 [Rx Last Taken Unknown] Allergy/AdvReac Type Severity Reaction Status Date / Time ciprofloxacin [From Cipro] Allergy Rash Verified 05/15/23 14:45 Penicillins Allergy Rash Verified 05/15/23 14:45 Family History Father CVA (cerebral vascular accident) Mother Myocardial infarction, Onset Age: 87 Other History of 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 vein 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 Surgical History H/O partial nephrectomy (2009) H/O total cystectomy History of bladder repair surgery History of left heart catheterization (04/2009) History of left nephrectomy (2000) History of total abdominal hysterectomy Social History Smoking Status: Never smoker alcohol intake: never substance use type: does not use caffeine: Yes what type of physical activity do you participate in: walking seatbelt use: always do you feel safe at home: Yes additional social history: [employer]- Retired patient is retired ROS ROS ED Constitutional Constitutional ED: Reports fatigue; Denies chills or fever(s) Eyes Eyes: Denies change in vision or diplopia ENT ENT ED: Reports nasal congestion; Denies ear pain, rhinorrhea or sore throat Cardiovascular Cardiovascular: Reports lightheadedness; Denies chest pain, leg edema, palpitations or syncope Respiratory/Chest Respiratory/Chest: Reports cough; Denies dyspnea or sputum Gastrointestinal Gastrointestinal: Denies abdominal pain, diarrhea, nausea or vomiting Genitourinary Genitourinary ED: Denies dysuria or hematuria Musculoskeletal Musculoskeletal: Denies back pain or neck pain Integumentary Denies abscess or rash Neurologic Neurologic: Denies headache(s), paresthesias or weakness Psychiatric Psychiatric: Denies anxiety or suicidal thoughts EXAM Physical Exam Const Vital Signs: 05/15/23 14:44 05/15/23 14:47 05/15/23 15:07 Temperature 96.1 F L Temperature Source Temporal Pulse Rate 111 H 93 Respiratory Rate 18 19 H Respiratory Effort Normal Respiratory Pattern Normal Blood Pressure 68/51 L 96/67 Blood Pressure Mean 56 76 Pulse Ox 95 96 Oxygen Delivery Method Room Air Room Air 05/15/23 15:22 05/15/23 16:00 05/15/23 17:00 Temperature 98.1 F Temperature Source Oral Pulse Rate 94 91 90 Respiratory Rate 16 19 H 17 Respiratory Effort Respiratory Pattern Blood Pressure 99/82 H 126/88 H 123/78 H Blood Pressure Mean 87 100 93 Pulse Ox 98 96 96 Oxygen Delivery Method Room Air Room Air Room Air 05/15/23 17:57 05/15/23 19:00 05/15/23 20:00 Temperature 98.1 F 98.2 F 98.1 F Temperature Source Oral Oral Oral Pulse Rate 87 88 88 Respiratory Rate 16 16 16 Respiratory Effort Respiratory Pattern Blood Pressure 127/84 H 134/86 H 125/94 H Blood Pressure Mean 98 102 104 Pulse Ox 95 95 95 Oxygen Delivery Method Room Air Room Air Room Air Positive well nourished and well developed Constitutional Narrative: Well-appearing, conversive in full sentences no distress General Appearance ED: well developed and NAD HEENT Reports moist mucous membranes normocephalic and atraumatic Eyes PERRL and EOMs intact bilaterally Neck full ROM and supple Resp normal respiratory effort Resp Narrative: Mild symmetric end-expiratory bibasilar wheezes otherwise clear and in no distress. Cardio regular rate and regular rhythm Heart Sounds: murmur systolic III/ crescendo-decrescendo GI non-tender and non-distended Auscultation: normoactive bowel sounds Palpation: soft Back/Spine no CVA tenderness General Back: other FROM Extremity normal to inspection General Extremety ED: Negative for edema, pulses abnormal or tenderness General Extremity: Negative for edema or pulses abnormal Neuro oriented x3, CN's II-XII intact bilaterally and no sensory deficits noted Sensorium / Orientation: awake and alert Motor Exam: strength 5/5 throughout Psych mental status grossly normal Skin no rashes or lesions noted and no wounds MDM MDM MDM Narrative Medical decision making narrative: While repeating the patient's electrolytes and blood counts, she was given a liter of IV fluids, per the shoe reconditioner's recommendation, and it was also told to me that we should also consider Zometa versus calcitonin. After receiving the labs back, I will call the shoe reconditioner prior to administering any of these medications. Rechecking the patient's blood pressure before any treatment was done, she is 96/67 with a heart rate of 93. Also obtaining a chest x-ray given her cough and minor wheezes in the bases to evaluate for pneumonia/bacterial infection. 2 view chest x-ray my interpretation shows no acute pneumonia, radiology is in agreement. Calcium returning 11.1, renal function is noted and has been relatively poor according to the patient and her daughter. Her other electrolytes are within normal limits, and her blood counts are good as well. Called to discuss with her shoe reconditioner Dr. Gregory, discussed with his PA who spoke with him, they are requesting CT of the chest, abdomen, pelvis screening for malignancy, in addition to getting Zometa 4 mg IV. Patient states she has had this before but is willing to undergo it again. She has chronic kidney disease with an EGFR that is 25 so I did this without contrast. I reviewed the images and the report which I agree with, it is negative for any obvious malignancy, with obvious limitations without contrast. At this time she is stable for discharge home. After her Zometa will discharge with instructions tocall Dr. Gregory for follow-up instructions. With regards to the patient blood pressure, there have been no other low readings and she is asymptomatic with this, and agrees she is stable to go home after the IV fluids. Lab Data Attestation: I reviewed the patient's lab results. Labs: Laboratory Results - last 24 hr 05/15/23 15:23 WBC 11.0 RBC 5.09 Hgb 14.4 Hct 44.8 MCV 88.0 MCH 28.3 MCHC 32.1 RDW Std Deviation 45.5 H RDW Coeff of Slava 14.3 Plt Count 216 MPV 11.8 Immature Gran % (Auto) 0.700 Neut % (Auto) 65.8 Lymph % (Auto) 15.8 L Chase % (Auto) 10.7 H Eos % (Auto) 6.4 H Baso % (Auto) 0.6 Absolute Neuts (auto) 7.2 Absolute Lymphs (auto) 1.74 Nucleated RBC % 0 Sodium 134 L Potassium 3.6 Chloride 103 Carbon Dioxide 22.0 Anion Gap 9 BUN 36 H Creatinine 2.04 H Estim Creat Clear Calc 19.41 Est GFR (MDRD) Af Amer 30 L Est GFR (MDRD) Non-Af 25 L BUN/Creatinine Ratio 17.6 Glucose 103 Calcium 11.1 H Radiography Diagnostic Testing: Clinical Impression(s) from Imaging Studies Chest X-Ray 05/15/23 15:22 IMPRESSION: No acute abnormality is seen. Electronically Signed: Geovanni Song MD at 15:55 EDT , Chest/Abdomen/Pelvis CT 05/15/23 18:59 IMPRESSION: Hypoattenuated right renal lesions. Correlate with ultrasound if needed. Nonvisualization of the left kidney. Mild colonic diverticulosis. Electronically Signed: Derrick Ramon DO at 20:12 EDT , Management Discussion w/another healthcare provider: Pre K Lead Teacher (Endocrine ) Discharge Plan Triage Chief Complaint: Abn Labs ED Provider: Juan Alberto Mcclendon Dx/Rx/DC Orders Clinical Impression: Hypercalcemia, [place] disease, Transient hypotension Instructions: Hypercalcemia Dc Prescriptions: No Action nitroglycerin 0.4 mg tablet, sublingual 0.4 mg SUBLINGUAL Q5-15M PRN (Reason: Cardiac/Chest Pain) simvastatin 20 mg tablet 20 mg PO QHS cholecalciferol (vitamin D3) 25 mcg (1,000 unit) capsule 50 mcg PO DAILY hydrocortisone 10 mg tablet 20 mg PO DAILY@0600 Qty: 90 6RF Rx Instructions: 2 tabs qam 1 tab qpm Prolia 60 mg/mL syringe 60 mg subcut [id number] Qty: 1 1RF amlodipine 2.5 mg tablet 2.5 mg PO DAILY Qty: 90 3RF acetaminophen 500 MG tablet 1,000 mg PO Q6H PRN (Reason: Pain Score 1-10) 0RF levocetirizine 5 mg tablet 5 mg PO DAILY Patient Comments: TAKE 1 TABLET BY MOUTH ONCE DAILY warfarin 2.5 mg tablet 2.5 mg PO DAILY@1700 Qty: 120 3RF Protocol: Dose Management Condition: Monday Dose/Route: 2.5 mg Instruction: 1 x 2.5 mg tablet Condition: Monday Dose/Route: 5 mg Instruction: 2 x 2.5 mg tablets Condition: Monday Dose/Route: 5 mg Instruction: 2 x 2.5 mg tablets Condition: Monday Dose/Route: 2.5 mg Instruction: 1 x 2.5 mg tablet Condition: Dose/Route: 2.5 mg Instruction: 1 x 2.5 mg tablet Condition: Monday Dose/Route: 2.5 mg Instruction: 1 x 2.5 mg tablet Condition: Monday Dose/Route: 2.5 mg Instruction: 1 x 2.5 mg tablet Protocol Text: Adjustment Start Date: Monday04/12/23 INR Value: 3.0 INR Date: 04/12/23 Recheck Date: 05/03/23 Rx Instructions: daily or as directed Primary Care Provider: Amos Floyd Referrals: Dr. Marco A [Other] - As soon as possible Disposition Disposition: Home, Self Care What to do if you have Problems For any increased pain, shortness of breath, bleeding, nausea or vomiting, chest pain, or any unexpected problems, contact your Primary Care Provider. Call [facility] ([phone]) or report to the closest Emergency Room. Call 911 if necessary. 05/15/232037 <Electronically signed by Juan Alberto Mcclendon MD> Cosigner Signature (if applicable): CC: Dr. Amos Floyd MD ~ Signed [facility] Work Phone: [phone]) 477-634703-25-2024 Miscellaneous Notes* Telephone Encounter - Amos Floyd MD - 05/15/2023 3:38 PM EDT Noted. * Telephone Encounter - Mary Diaz RN - 05/15/2023 1:22 PM EDT Pts daughter Souleymane called in and reports her mothers Service Station Console Operator Dr Gregory from [facility] called and told her mother to go to the ER. He said her Calcium was critically high, and she needs hydration, Zometa, and Calcitonin. Pt will be going to [facility]. documented [facility] History of Present illness Narrative* José Shi, PT, DPT - 05/09/2023 8:58 AM EDT Program_ID:[id number] Access Code: [email or web address] URL: [email or web address] Date: 05-09-2023 Prepared By: Kole El Program Notes Exercises - Supine Bridge with Mini [place] Lucian Ball Between Knees - 2 x daily - 5 x weekly - 2 sets - 10 reps - Sidelying Hip Abduction - 2 x daily - 5 x weekly - 2 sets - 10 reps - Clamshell with Resistance - 2 x daily - 5 x weekly - 2 sets - 8-12 reps - Supine Active Straight Leg Raise - 2 x daily - 5 x weekly - 2 sets - 6-10 reps - Mini Squat with Counter Support - 2 x daily - 5 x weekly - 2 sets - 10 reps - Standing Hip Abduction with Counter [...] - 2 sets - 10 reps - Step Up - 2 x daily - 3 x weekly - 2 sets - 10 reps * José Shi PT, DPT - 05/09/2023 8:19 AM EDT Episode Visit Count: 7 Therapist That Will Accept/Oversee The Plan Of Care: Kole El, ULISSES, DPT. Start of Care Date: 03/28/23 Onset Date: 11/07/22 Plan of Care Certification Date: 05/02/23 Next Certification Due Date: 05/30/23 Patient Identified by Name and Date of : Yes REHABILITATION AND SPORTS THERAPY PHYSICAL THERAPY TREATMENT NOTE ASSESSMENT: Linda Peralta tolerated the session with expected muscle soreness. She demonstrated difficulty with clamshell verse OTB, decreased ROM verse resistance on the left. Able to correct lefttrendelenburg sign during SL stance with verbal and tactile cues. The patient will continue to benefit from ongoing skilled physical therapy to progress toward set goals. PLAN FOR NEXT VISIT: Monitor pelvic alignment, SL strengthening as able SUBJECTIVE: Patient reports she was doing a lot of walking on uneven ground over the weekend, whichcaused increased soreness. HEP is going well. She feels the heel lift administered last session helps intermittently. Feels she is walking better. Pain: Pain Pain Level: 0 Pain Location: Leg - Left, Leg - Right Post Treatment Pain Post Treatment Pain Level: No Change (soreness) Post Treatment Pain Location: Leg - Left, Leg - Right OBJECTIVE MEASURES WITH LEVEL OF FUNCTION: Gait Gait Observation: Ongoing left trendelenburg pattern TREATMENT: Therapeutic Exercise: 1: Warm-up on scifit x5 minutes 2: Supine bridge with adduction isometric hold 10 sec 2x10 3: Supine SLR 3 sec hold 2x10 bilat 4: SL clamshell verse OTB 2x10 bilat 5: Standing hip ABD 2x15 bilat Skilled Intervention: Patient was educated in proper exercise technique and purpose for exercises. Reviewed and educated patient on additions/changes for home exercise program as above (*). Skilled judgment was used in selection of appropriate interventions. Provided written instruction for home exercise program to facilitate proper performance and compliance. Correct performance of therapeutic exercises was facilitated with verbal and visual cuing. Neuromuscular Re-Education: 1: Standing marching VC for reduced trendelenburg pattern 2x10 bilat // bar support 2: 3-way hip emphasis on reduce trendelenburg in SL stance 2x15 bilat // bar support 3: FWD step up to bosu x10 bilat Skilled Intervention: Skilled judgment used to assess appropriate program for balance and coordination activity. Ensured patient safety with use of // bars and gait belt. Billing Therapeutic Exercise Treatment Minutes: 24 Neuromuscular Re-Education Treatment Minutes: 20 Skilled Treatment Time Minutes (timed and untimed codes): 44 Total Session Time (minutes): 44 Session Start Time : 816 Session Stop Time : 900 José Shi PT DPDana documented in this encounterR[facility]03-[facility] History of Present illness Narrative* José Shi PT DPDana - 05/02/2023 8:55 AM EDT Program_ID:[id number] Access Code: [email or web address] URL: [email or web address] Date: 05-02-2023 Prepared By: Kole El Program Notes Exercises - Supine Bridge with Mini St Lucian Ball Between Knees - 2 x daily - 5 x weekly - 2 sets - 10 reps - Sidelying Hip Abduction - 2 x daily - 5 x weekly - 2 sets - 10 reps - Clamshell with Resistance - 2 x daily - 5 x weekly - 2 sets - 8-12 reps - Supine Active Straight Leg Raise - 2 x daily - 5 x weekly - 2 sets - 6-10 reps - Mini Squat with Counter Support - 2 x daily - 5 x weekly - 2 sets - 10 reps - Standing Hip Abduction with Counter [...] weekly - 2 sets - 10 reps * José Shi PT, DPT - 05/02/2023 8:19 AM EDT Images from the original note were not included. Episode Visit Count: 6 Therapist That Will Accept/Oversee The Plan Of Care: Kole El, ULISSES, DPT. Start of Care Date: 03/28/23 Onset Date: 11/07/22 Plan of Care Certification Date: 05/02/23 Next Certification Due Date: 05/30/23 Patient Identified by Name and Date of : Yes REHABILITATION AND SPORTS THERAPY PHYSICAL THERAPY PROGRESS REPORT PLAN OF CARE UPDATE: Assessment: Linda Peralta demonstrates mild improvements in strength, decreased trendelenburg pattern on the right, and improved activity tolerance. She has ongoing LE weakness L>R with associated left trendelenburg pattern during ambulation. Patient continues to present with impairments in balance, gait, overall function, posture, and strength that interfere with walking, walking in the house, walking in the community, physical activities, recreational activities . Current prognosis is Good due to: current objective clinical presentation, positive past response to therapy, within-session changes, good support system/ coping skills . She will benefit from continued skilled therapy services to meetthe updated goals for this plan of care as noted below. Updated 05/02/2023 Goals for Episode of Care: created on 03/28/23 through 05/30/23 [place] in home exercise program.-- Met continue to monitor Patient will decrease pain rating by 2 points to meet minimal clinical important difference for numeric pain rating scale.-- Met, continue to monitor Patient will demonstrate increase in BLE strength to 4+ to 5/5 (abdoulaye. Hip flexors & hip ABD) during manual muscle testing in order to improve function for basic self-care tasks, home management tasks, prior functional tasks, and light functional tasks.--progressing Perform walking with decreased report of symptoms/pain in 6 weeks. Improve gait mechanics for ability tp return to leisure / recreation Exercise.-- progressing Improve stair ascending negotiation without report of symptoms/pain in 6 weeks.--progressing Patient Goals: Reduce pain; improve movement; get back to PLOF. Planned Interventions, Frequency, and Duration: 1x/week, 4 weeks Total Number of Visits Planned: 4 Patient to be seen for Therapeutic exercise (40470), Neuromuscular re-education (73435), Manual therapy (96615), Self-fdc management (48302), Therapeutic activities (03962), Gait Training (96037), Patient/Family/Caregiver Education PLAN FOR NEXT VISIT: Assess effect of heel lift on the left, re-assess pelvic alignment SUBJECTIVE: Overall patient feels she is improving from evaluation day. She does her HEP 6 times per week. Patient notes she continues to get tired when shopping, not necessarily painful. Functional Limitations: walking, walking in the house, walking in the community, physical activities, recreational activities Pain: Pain Pain Level: 0 Pain Location: Leg - Left, Leg - Right Description: Aching Frequency: Intermittent Post Treatment Pain Post Treatment Pain Level: No Change Post Treatment Pain Location: Leg - Left, Leg - Right PROMIS Scales 03/28/2023 11/08/2022 Higher is Better Phys Func - Score 41 (mild dysfunction) 49 (within normal limits) Phys Func - Percentile 18 46 Self-Eff Symptom - Score 41 (Average) 58 (Average) Self-Eff Symptom - Percentile 18 79 T-scores: mean of general population = 50. 5 points is clinically meaningfully difference Percentiles provide an indication of how the patient's score ranks in relation to the general population. Higher percentile rankings indicate better function/quality of life. 50th percentile is the average of the general population and indicates half of respondents had a worse score. OBJECTIVE MEASURES WITH LEVEL OF FUNCTION: Posture / Alignment Lumbo - Pelvic Alignment: Left leg appears to be shorter Leg Length Discrepency: 1 cm difference left shorter than right from ASIS to medial malleolus Hip Observations R Hip Palpation Tenderness: ASIS (Anterior superior iliac spine) (Glute medius) L Hip Palpation Tenderness: ASIS (Anterior superior iliac spine) (glute medius) Ankle Observations Weight Bearing Status: (FWB) LE Strength R Hip Extension: 4/5 R Hip Flexion (L2): 3+/5 R Hip ABduction: 3/5 L Hip Extension: 4/5 L Hip Flexion (L2): 3+/5 L Hip ABduction: 3/5 Gait Gait Observation: left trendelenberg gait. decreased gait speed.Decrease stance on the left Stairs: Reciprocal, left rendelenberg TREATMENT: Therapeutic Exercise: 1: Re-assessment per above 2: HEP review 3: Patient unable to perform standing hip hike. 4: Reviewed SL hip abduction, education on proper form as patient has tendency to roll backward, x10 bilat Skilled Intervention: Patient was educated in proper exercise technique and purpose for exercises. Reviewed and educated patient on additions/changes for home exercise program as above (*). Skilled judgment was used in selection of appropriate interventions. Provided written instruction for home exercise program to facilitate proper performance and compliance. Correct performance of therapeutic exercises was facilitated with verbal and visual cuing. Gait Trainin: Stair negotiation x4 6 steps VC for safety, and improved pattern. 2: Ambulation x100 ft verbal cues for heel toe pattern and upright posture to reduce lateral trunk lean and trendelenberg pattern 3: Administered left heel lift. Educated patient on ability to change height of lift. Education on the purpose of the heel lift and potential side effects. Skilled Intervention: Facilitated proper gait cycle with the use of verbal and visual cues for correction of gait deviations identified in the objective section above. Education provided per above. Billing Therapeutic Exercise Treatment Minutes: 30 Gait Training Treatment Minutes: 14 Skilled Treatment Time Minutes (timed and untimed codes): 44 Total Session Time (minutes): 44 Session Start Time : 816 Session Stop Time : 900 José Shi PT, DPT documented in this encounterRivers[facility]24 History of Present illness Narrative* Kole El, PT - 04/11/2023 10:14 AM EST Episode Visit Count: 3 Therapist That Will Accept/Oversee The Plan Of Care: Kole El PT, DPT. Start of Care Date: 03/28/23 Onset Date: 11/07/22 Plan of Care Certification Date: 03/28/23 Next Certification Due Date: 05/02/23 Patient Identified by Name and Date of : Yes REHABILITATION AND SPORTS THERAPY PHYSICAL THERAPY TREATMENT NOTE ASSESSMENT: Linda Peralta tolerated the session with expected muscle soreness. She demonstrated difficulty with SLR on the RLE > LLE. The patient will continue to benefit from ongoing skilled physical therapy to progress toward set goals. PLAN FOR NEXT VISIT: Progress ther-ex as tolerated; lateral step ups, lateral walking, hip flexor/glute strengthening; work on gait mechanics as able. SUBJECTIVE: Pt. reports no pain or symptoms; continuing to get better overall, legs continue to feel stronger per patient. Pain: Pain Pain Level: 0 Pain Location: Leg - Left, Leg - Right Post Treatment Pain Post Treatment Pain Location: Leg - Left, Leg - Right OBJECTIVE MEASURES WITH LEVEL OF FUNCTION: Tenderness and tissue restrictions in R Glute Med. TREATMENT: Therapeutic Exercise: 1: S/L Hip ABD: 2x10 Spencer. 2: S/L Clamshells: 2x12 ea., PinkTb. 3: Bridges: 2x12, Paola TB 4: Supine SLR: 2x6, 2#cuff. 5: FWD Step Ups: 1x12 ea. , 8-inch box. 6: *PinkTB given and added to home exercises. Skilled Intervention: Patient was educated in proper exercise technique and purpose for exercises. Skilled judgment was used in selection of appropriate interventions. Correct performance of therapeutic exercises was facilitated with verbal, visual, and tactile cuing. Patient education as noted. Manual Therapy: 1: STM w/ lacrosse ball to L Glute Med & Min:Push to tolerance. 2: Shotgun Technique: 1 Bout. 3: L Hip Flexor off the Table Stretch: 4x30, PT assist with added pressure to LLE, CFM across Hip Flexor w/ Lacrosse ball during sustained hold. 4: MET for L anterior rotated innominate: 2 Bouts of 6 Reps, 6-sec holds. Skilled Intervention: Manual skills to improve joint mobility, ROM, and decrease pain. Utilized anatomy knowledge of the therapist, and assessment of patient's response to intervention. Billing Therapeutic Exercise Treatment Minutes: 26 Manual TherapyTreatment Minutes: 14 Skilled Treatment Time Minutes (timed and untimed codes): 40 Total Session Time (minutes): 40 Session Start Time : 1031 Session Stop Time : 1111 Kole El PT documented in this encounterR[facility]02-12-[facility]24 History of Present illness Narrative* Kole El, PT - 04/03/2023 10:57 AM EST Program_ID:[id number] Access Code: [email or web address] URL: [email or web address] Date: 04-03-2023 Prepared By: Kole El Program [...] weekly - 2 sets - 10 reps * Kole El, PT - 04/03/2023 10:06 AM EST Episode Visit Count: 2 Therapist That Will [...] 3: Manual Flexibility to L Hip Flexor: 2x30. Skilled Intervention: Manual skills to improve joint [...] 1100 Kole El PT documented in this encounterRivers[facility]02-06-2024 History of Present illness Narrative* Kole El PT - 03/28/2023 9:04 AM EST Program_ID:[id number] Access Code: [email or web address] URL: [email or web address] Date: 03-28-2023 Prepared By: Kole El Program [...] weekly - 2 sets - 10 reps * Kole El PT - 03/28/2023 8:12 AM EST Episode Visit Count: 1 Therapist That Will [...] in ADL's, flexibility, gait, independence in exercise, overallfunction, range of motion, strength, symptom management, and [...] meet the goals established for this plan ofcare as noted below. Goals for Episode of Care: created on 03/28/23 through 05/09/23 [place] in home exercise program. Patient will decrease [...] Planned: 6 Planned Treatment Interventions: Therapeutic exercise (97130), Neuromuscular re- education (06445), Manual therapy (86086), Self-fdc management (70596), Therapeutic activities (84276), Gait Training (37976), Patient/Family/Caregiver Education PLAN FOR NEXT VISIT: Assess how HEP went; continue/progress lateral glute & quad strength; gaitinterventions. Patient demonstrates good understanding of plan of [...] keep her from being on the R Foot; States B Hip pain came back in [...] the house, walking in the community, stair negotiation,physical activities, recreational activities Prior Level of Function: [...] pain; patient states she mentally feels better leavingsession today about her condition. PROMIS Scales Higher [...] Mechanics TREATMENT: PT Treatment Interventions: Therapeutic Exercise, Self-Halfway Management Evaluation Therapeutic Exercise: 1: *S/L Hip [...] facilitated with verbal, visual, and tactile cuing. Self-Halfway Management: 1: Extended time spent rationalizing and [...] 904 Kole El PT documented in this encounterRivers[facility]02-02-2024 Miscellaneous Notes* Telephone Encounter - Jaquelin Mcgraw Ma - 03/24/2023 11:33 AM EST Patient called in and message from Dr. Cruz given. She verbalized understanding. documented in this encounterRiverside [facility]11-30-2023 History of Present illness Narrative* Amos Floyd MD - 01/19/2023 1:31 PM EST This note was created using [employer]. Subjective Linda Peralta is a 77 year [...] 88 Resp 16 Ht 159 cm (5' 2.6) Wt 64.4 kg (142 lb) BMI 25.48 [...] tablet daily at bedtime as needed. Discussed medicationdosage, usage, goals of therapy, and side effects. [...] pathological fracture with routine healing - ICD9: V54.29,733.01, ICD10: M80.00XD - continue tx with PROLIA per Dr. Aisha Vann. 9. Need for COVID-19 vaccine - ICD9: V04.89, ICD10: Z23 - [employer] COVID-19 VACCINE (2022- SEASON) AGE 12+ YR 10. Hypercalcemia - ICD9: 275.42, ICD10: E83.52 - Controlled. - HYDROCORTISONE 10 MG TABLET Amos Floyd MD * Amos Floyd MD - 01/19/2023 1:20 PM EST Linda Peralta is a 77 year old [...] PCP - General Cardiology-Dr. Marte Nephrology- Dr. Jennifer Tarango Pasting Machine Offbearer- Dr. Carpio Endocrinology- Dr. Torsten Vann (osteoporosis), Dermatology- Dr. Gale ([facility]) Podiatry- Dr. Butch Cruz. Medical/Family history review Reviewed and updated problem list, medical/surgical/family/social history, medications, and allergies. Opioid use review Opioid Medications (last 90 days) Some values may be hidden. Unless noted otherwise, only the newest values recorded on each date aredisplayed. Opioid Medications No data to display. Depression screening Depression Screening PHQ-2 Score PHQ-9 Score 12/20/2021 0 - Depression screening tool completed and reviewed. Based on score and interview, patient is not at risk for depression. Screening tool discussed with patient, and I recommended no further interventionat this time. Cognitive screening Mini Cog Score: [...] Personalized prevention plan provided documented in this encounterRiverside [facility] Hospital11-29-2023 History of Present illness Narrative* Cherie Gates RT(R) - 01/18/2023 10:50 AM EST Radiology Service Progress Note PATIENT NAME: Linda Peralta DATE OF SERVICE: January 18, 2023 TIME: 10:53 AM PATIENT IDENTITY VERIFICATION COMPLETED USING TWO (2) IDENTIFIERS: Name and Date of confirmedby patient verbally. FALL SCREENING: Has the patient had 2 falls in the last year or 1 fall with injury or currently using an Ambulatory Assistive Device (Walker, Cane, Wheelchair, Crutches, etc.)? No PATIENT GENDER DATA: Female. status: : No status: NO. PATIENT RELEVANT IMPLANT DATA REVIEWED: Not Applicable RADIOLOGY DEPARTMENT: General X-ray: Exam(s) Completed: Lower Extremity X- Ray(s): Foot, Right PERIPHERAL IV DATA: Not applicable SIGNED BY: RT Daniel(R) January 18, 2023 10:53 AM documented in this encounterRiverside [facility] Hospital10-30-2023 History of Present illness Narrative* Omar Cruz - 12/19/2022 12:53 PM EDT FOLLOW UP PODIATRIC OFFICE VISIT Chief Complaint: [...] 5.3 4.3 - 5.6 % Final Comment: [place] [employer] guidelines indicate that patients with [...] eczema, due to unspecified cause 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[place]'s disease Cystocele, midline 07/23/2007 Diverticulosis of colon (without mention of hemorrhage) DVT (deep venous thrombosis) ([facility]) 03/23/2012 DVT of lower extremity (deep venous thrombosis) ([facility]) 03/27/09 Esophageal reflux Gallstones 03/06/2016 Hypercalcemia 03/19/2009 Hypertension NSTEMI (non-ST elevated myocardial infarction) ([facility]) April 27, 2009 Cardiac cath normal Other [...] W/COLLJ SPEC WHEN PFRMD 03/26/2010 Inpatient at [facility] ESOPHAGOGASTRODUODENOSCOPY TRANSORAL DIAGNOSTIC 02/2002 EGD ESOPHAGOGASTRODUODENOSCOPY TRANSORAL [...] TOTAL ABDOMINAL HYSTERECT W/WO RMVL TUBE OVARY 1980 Hysterectomy, ARIEL, BSO Physical Exam: OBJECTIVE: Constitutional: [...] If pain fails to improve, consider injection. Omar Cruz DPM * Julieta Avendano LPN - 12/19/2022 11:32 AM EDT AMB ROOMING INTAKE FLOWSHEET DATA Patient presents with: Right Foot - Established Patient, Follow Up Julieta Avendano LPN documented in this encounterRiverside [facility] Hospital10-30-2023 Instructions* Patient Instructions* Omar Cruz - 12/19/2022 12:24 PM EDT Powerstep Original Full length. Can purchase at [email or web address] here in [place], [employer] in [place] or [place]. Also can find in [employer] in [facility]. Powersteps can also be purchased online, starting [...] everything fits well together documented in this encounterRiverside [facility] Hospital10-13-2023 Miscellaneous Notes* Telephone Encounter - Kelley Rivera LPN - 12/02/2022 11:28 AM EDT Pt last seen pcp 10/26/22 Next appt is 01/19/23. * Telephone Encounter - yKlah Cuellar - 12/02/2022 11:03 AM EDT Patient has been identified by name and date of : Yes Requested Prescriptions Pending Prescriptions Disp Refills simvastatin (ZOCOR) 20 mg tablet 90 tablet 3 Sig: Take 1 tablet by mouth daily at bedtime. RX INSTRUCTIONS: Patient aware RX will be sent to pharmacy. No need to notify patient. Kylah mcdermott documented in this encounterRiverside [facility] Hospital10-12-2023 History of Present illness Narrative* Marguerite Waller RT(Lin) - 12/01/2022 11:50 AM EDT Radiology Service Progress Note PATIENT NAME: Linda Peralta DATE OF SERVICE: December 01, 2022 TIME: 11:40 AM PATIENT IDENTITY VERIFICATION COMPLETED USING TWO (2) IDENTIFIERS: Name and Date of confirmedby patient verbally. FALL SCREENING: Has the patient had 2 falls in the last year or 1 fall with injury or currently using an Ambulatory Assistive Device (Walker, Cane, Wheelchair, Crutches, etc.)? No PATIENT GENDER DATA: Female. status: : No status: NO. PATIENT RELEVANT IMPLANT DATA REVIEWED: Not Applicable RADIOLOGY DEPARTMENT: General X-ray: Exam(s) Completed: Lower Extremity X- Ray(s): Foot, Right PERIPHERAL IV DATA: Not applicable SIGNED BY: RT Doug(R) December 01, 2022 11:40 AM documented in this encounterRiverside [facility] Hospital09-19-2023 History of Present illness Narrative* EnriquezJacinda mckinley APRN.SPORTS TEAM MANAGER - 11/08/2022 10:59 AM EDT This note was created using NoteWriter. Subjective [...] history is provided by the patient. No language arts teacher was used. Pain (foot) Pain location: right [...] eczema, due to unspecified cause 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[place]'s disease Cystocele, midline 07/23/2007 Diverticulosis of colon [...] W/COLLJ SPEC WHEN PFRMD 03/26/2010 Inpatient at [facility] ESOPHAGOGASTRODUODENOSCOPY TRANSORAL DIAGNOSTIC 02/2002 EGD ESOPHAGOGASTRODUODENOSCOPY TRANSORAL [...] Age of Onset Coronary Artery Disease Mother [place] at 87y.o. Hypertension Mother Stroke Father Coronary [...] kg (139 lb 9.6 oz) SpO2 98% BMI26.02 kg/m Physical Exam Vitals and nursing note [...] appt made at time of exam. Jacinda Enriquez APRN.TELLY documented in this encounterRivers[facility]09-12-2023 History of Present illness Narrative* Kole El, PT - 11/01/2022 8:13 AM EDT Episode Visit Count: 1 Therapist That Will [...] established for this plan of care as notedbelow. Goals for Episode of Care: created on 11/01/22 through 01/01/23 [place] in home exercise program. Patient will decrease pain rating by 2 points to meet minimal clinical important difference for numeric pain rating scale. Patient will demonstrate increase in B Hip strength to 5/5 during manual muscle testing in order toimprove function for basic self-care tasks, home management tasks, leisure / recreation skills, light functional tasks, and prior functional tasks. Patient will increase flexibility of L Quadriceps/Hip Flexors to WNL to improve ability to maintainproper posture, improve mechanics, and decrease pain. Perform walking & weightbearing with decreased report of symptoms/pain in 4-6 weeks. Normalize gait mechanics Improve Left unilateral pelvic asymmetry to improve pain, posture and gait mechanics. Patient Goals: Reduce pain; improve movement. Planned Interventions, Frequency, and Duration: Current Frequency: 2x/week Duration: 4 weeks Total Number of Visits Planned: 8 Planned Treatment Interventions: Therapeutic exercise (21924), Neuromuscular re- education (34458), Manual therapy (34697), Self-fdc management (29269), Therapeutic activities (46304), Gait Training (84724), Patient/Family/Caregiver Education PLAN FOR NEXT VISIT: Muscle [...] than the previous R Hip episode; L hiphas been worsening since initial onset; states her [...] the house, walking in the community, stair negotiation,physical activities, recreational activities, Comments Functional Limitation Comments: [...] PT Treatment Interventions: Therapeutic Exercise, Manual Therapy, Self-Halfway Management Evaluation Therapeutic Exercise: 1: Supine Hip [...] Quads: Push to tolerance. 3: Manual Long [place] L Hip Distraction: Pull to patient tolerance. Skilled Intervention: Manual skills to improve joint mobility, ROM, and decrease pain. Utilized anatomy knowledge of the therapist, and assessment of patient's response to intervention. Self-Halfway Management: 1: Education on anatomy & physiology of current presentation & deficits compared to her subjective pain/sxs and functional limitations; edcuated patient in purpose of supine to long sit test to assess the contribuition of the SI joint to the apparent leg length discrepancy; educated patienton functionaldiscrepancy and her current pelvic alignment and [...] 0900 Kole El PT documented in this encounterRiverside [facility]09-06-2023 History of Present illness Narrative* Marguerite Waller RT(R) - 10/26/2022 2:40 PM EDT Radiology Service Progress Note PATIENT NAME: Linda Peralta DATE OF SERVICE: October 26, 2022 TIME: 2:40 PM PATIENT IDENTITY VERIFICATION COMPLETED USING TWO (2) IDENTIFIERS: Name and Date of confirmedby patient verbally. FALL SCREENING: Has the patient [...] RT Doug(R) October 26, 2022 2:40 PM documented in this encounterRiverside [facility] Hospital09-06-2023 History of Present illness Narrative* Amos Floyd MD - 10/26/2022 2:10 PM EDT This note was created using [employer]. Subjective Patient presents with: Left Hip Pain [...] bony tenderness or crepitus. Decreased range of motion.Normal strength. Left upper leg: Normal. Left knee: [...] HIGH-DOSE) Amos Floyd MD documented in this encounterRiverside [facility] Hospital07-31-2023 Miscellaneous Notes* Telephone Encounter - Carla Howard RN - 09/19/2022 4:06 PM EDT THELMA 05/25/2022 * Telephone Encounter - Edda Loya - 09/19/2022 4:02 PM EDT Patient has been identified by name and date of : Yes Requested Prescriptions Pending Prescriptions Disp Refills levocetirizine (XYZAL) 5 mg tablet 90 tablet 3 Sig: Take 1 tablet by mouth once daily. RX INSTRUCTIONS: Patient aware RX will be sent to pharmacy. No need to notify patient. Edda Loya documented in this encounterRiverside [facility] Hospital06-07-2023 Miscellaneous Notes* Telephone Encounter - Sharon Pierre RN - 07/27/2022 2:31 PM EDT Returned call to [facility]- ICD code provided (L20.81) * Telephone Encounter - Faye Sung [facility] - 07/27/2022 1:27 PM EDT Specialty Pharmacy phoned requesting a ICD9 Code for ADBRY medication Please advise pharmacy using ref #[id number] documented in this encounterRiverside [facility] Hospital06-02-2023 Miscellaneous Notes* Telephone Encounter - Sharon Pierre RN - 07/22/2022 1:07 PM EDT THELMA 05/2022 * Telephone Encounter - Vashti Avendano [facility] - 07/22/2022 10:20 AM EDT [facility] pharmacy called and stated that they need a new script for the ADBRY sent to them. Please call [phone] or escribe fax at [phone] documented in this encounterRiverside Methodist Hospital05-31-2023 History of Present illness Narrative* Rocio Johnson, ROAD ROLLER OPERATOR HOT MIX.SPORTS TEAM MANAGER - 07/20/2022 10:03 AM EDT CC: Patient presents with: F/U 6 months HPI Linda Peralta is a 77 year old female who presents today for above. HTN/ASHD-[facility]. Next follow-up in one week. Medication changes:No Taking all medications as prescribed: Yes Side effects: No Home BP's: Yes normally in the 120's/80's, have been a little lower the past two days. This morningit was 92/61, she felt a little woozy but resolved quickly. Denies: headache, chest pain, palpitations, dyspnea, and peripheral edema. 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 Managed by endocrinology. Prolia injections every 6 months. Atopic neurodermatitis- managed by [facility] sock mender. Not responsive to current treatments. Startedon new medication called Manuel however her pharmacy has not received this yet. VTE- lifelong anticoagulation with Coumadin. INR's managed by fiberglass boat finisher. REVIEW OF SYSTEMS See HPI PAST MEDICAL HISTORY Diagnosis Date Anemia 08/26/2009 ASHD (arteriosclerotic heart disease) 04/25/2009 Asthma Benign neoplasm of colon 04/26/2005 Tubular adenoma Chronic diarrhea 03/15/2010 Chronic sphenoidal sinusitis 09/15/2003 Collagenous colitis 03/30/2010 Contact dermatitis and other eczema, due to unspecified cause 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[place]'s disease Cystocele, midline 07/23/2007 Diverticulosis of colon (without mention of hemorrhage) DVT (deep venous thrombosis) ([facility]) 03/23/2012 DVT of lower extremity (deep venous thrombosis) ([facility]) 03/27/09 Esophageal reflux Gallstones 03/06/2016 Hypercalcemia 03/19/2009 Hypertension NSTEMI (non-ST elevated myocardial infarction) ([facility]) April 27, 2009 Cardiac cath normal Other [...] W/COLLJ SPEC WHEN PFRMD 03/26/2010 Inpatient at [facility] ESOPHAGOGASTRODUODENOSCOPY TRANSORAL DIAGNOSTIC 02/2002 EGD ESOPHAGOGASTRODUODENOSCOPY TRANSORAL [...] inject 2 syringes subcutaneously every other week afterthis. triamcinolone acetonide (KENALOG) 0.1 % cream Apply [...] Age of Onset Coronary Artery Disease Mother [place] at 87y.o. Hypertension Mother Stroke Father Coronary [...] patient asymptomatic at this time. Recommend calling fiberglass boat finisher office if continues - Continue current medication(s) [...] Patient agreeable to treatment plan. Rocio Johnson APRN.CNP documented in this encounterRiverside [facility] Hospital04-05-2023 History of Present illness Narrative* Ryan Gale MD - 05/25/2022 1:40 PM EDT Images from the original note were not included. Department of Dermatology Ryan Gale MD 05/25/2022 Last visit in Dermatology: 02/23/2022 [...] substantial effect. No cause has been identified todate. Pruritus is severe and the lesions are [...] completed by Desirae Benedict MA Attending signature: Ryan Gale MD This note is completed at 10:09 AM on 06/06/2022 and reflects the services provided at the time of the appointment. I agree with the Chief Complaint, ROS, and Past Histories independently gathered by the clinical clinical support nurse. documented in this encounterRiverside Methodist Hospital01-25-2023 Miscellaneous Notes* Telephone Encounter - Sharon Pierre RN - 03/16/2022 9:52 AM EST Received fax from [employer]- Prior authorization approval for Opzelura 1.5% cream. This authorization is good until 02/19/2023. Pharmacy notified. * Telephone Encounter - Sharon Pierre RN - 03/15/2022 2:16 PM EST Prior authorization requested for Opzelura 1.5% cream via [facility]. Will await determination documented in this encounterRiverside Methodist Hospital01-23-2023 Miscellaneous Notes* Telephone Encounter - Donald James RPh - 03/14/2022 1:[address] Gale, This was sent to our pharmacy, however this is something we do not service. Please sign this order to have it sent to patient's preferred pharmacy. Thank you Donald James, RaeganD Clinical Pharmacist, Oncology [facility] P: ; F: Pool: P CC SPEC PHARMACY ONCOLOGY Pool #: [id number] documented in this encounterRiverside Methodist Hospital01-04-2023 History of Present illness Narrative* Ryan Gale MD - 02/23/2022 2:26 PM EST Images from the original note were not included. Department of Dermatology Ryan Gale MD 02/23/2022 Last visit in Dermatology: 11/25/2021 Objective/Assessment/Plan 1. Atopic neurodermatitis Left Abdomen (side) - Lower, Left Forearm - Posterior, Left Lower Leg - Anterior, Left Upper Arm - Posterior, Left Upper Back, Mid Back, Right Abdomen (side) - Lower, Right Forearm - Posterior, RightShoulder - Posterior, Right Upper Arm - Posterior, [...] Posterior, Right Upper Arm - Posterior, Right UpperBack Apply to affected area twice daily. Follow-up [...] documentation for this note was completed by Ryan Gale MD acting as scribe for Ryan Gale MD. February 23, 2022 3:11 PM Intake completed by Jacinda Kincaid LPN I agree with the Chief Complaint, ROS, and Past Histories independently gathered by the clinical clinical support nurse. documented in this encounterRiverside Methodist Hospital10-31-2022 Instructions* Patient Instructions* Rocio Johnson APRN.CNP - 12/20/2021 9:17 AM EDT Please call the office after your follow-up with fiberglass boat finisher in January for an update on your blood pressure and if any medication changes were made documented in this encounterRiverside Methodist Hospital10-31-2022 History of Present illness Narrative* Rocio Johnson APRN.CNP - 12/20/2021 9:05 AM EDT Medicare Yearly Visit Medical B eligibilty date 2008 Date of last exam 12/03/20 PAST MEDICAL HISTORY Diagnosis Date Anemia 08/26/2009 ASHD (arteriosclerotic heart disease) 04/25/2009 Asthma Benign neoplasm of colon 04/26/2005 Tubular adenoma Chronic diarrhea 03/15/2010 Chronic sphenoidal sinusitis 09/15/2003 Collagenous colitis 03/30/2010 Contact dermatitis and other eczema, due to unspecified cause 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[place]'s disease Cystocele, midline 07/23/2007 Diverticulosis of colon (without mention of hemorrhage) DVT (deep venous thrombosis) ([facility]) 03/23/2012 DVT of lower extremity (deep venous thrombosis) ([facility]) 03/27/09 Esophageal reflux Gallstones 03/06/2016 Hypercalcemia 03/19/2009 Hypertension NSTEMI (non-ST elevated myocardial infarction) ([facility]) April 27, 2009 Cardiac cath normal Other [...] W/COLLJ SPEC WHEN PFRMD 03/26/2010 Inpatient at [facility] ESOPHAGOGASTRODUODENOSCOPY TRANSORAL DIAGNOSTIC 02/2002 EGD ESOPHAGOGASTRODUODENOSCOPY TRANSORAL [...] Age of Onset Coronary Artery Disease Mother [place] at 87y.o. Hypertension Mother Stroke Father Coronary [...] current specialists seen: Cardiology-Dr. Marte Nephrology- Dr. Jennifer Tarango Pasting Machine Offbearer- Dr. Carpio Endocrinology- Dr. Torsten Vann (osteoporosis), Dr. Gregory (cortef) Dermatology- Dr. Gale ([facility]) End of Live Planning discussed including [...] bars in the bathroom, lack of handrails onthe stairs or have poor lighting? No Hearing Evaluation: normal PHYSICAL EXAM BP 154/100 Pulse 96 Resp 16 Ht 156 cm (5' 1.42) Wt 64.4 kg (142 lb) BMI 26.47 [...] diet of 1000 mg/day for under 50, 1200- 1500 mg/day for 50+ - Depression screening tool completed and reviewed with patient. Based on score and interview, patient is not at risk for depression and recommended no further intervention at this time. - Patient was counseled [id number] by myself (the billing provider) for the following immunizations and vaccine components, including side effects: COVID- 19. Patient consents for immunization and understands risks [...] YR Rocio Johnson APRN.CNP documented in this encounterRiverside [facility] Hospital10-19-2022 Miscellaneous Notes* Letter - Mammography Coordinator - 12/08/2021 2:02 PM EDT December 08, 2021 PID: [id number] Linda Peralta [address] [place] [address] Dear Ms. Peralta, We are pleased to [...] report will be [facility] as part of your permanent medical record and are available for your continuing care. Thank you for allowing us to help in meeting your health care needs. Sincerely, Dr. Madden Interpreting Radiologist [facility] (Normal over 40) documented in this encounterRiverside Methodist Hospital10-19-2022 History of Present illness Narrative* Echo Light Mammo Tech - 12/08/2021 12:50 PM EDT Radiology Service Progress Note PATIENT NAME: Linda Peralta DATE OF SERVICE: December 08, 2021 TIME: 12:55 PM PATIENT IDENTITY VERIFICATION COMPLETED USING TWO (2) IDENTIFIERS: Name and Date of confirmedby patient verbally. FALL SCREENING: Has the patient had 2 falls in the last year or 1 fall with injury or currently using an Ambulatory Assistive Device (Walker, Cane, Wheelchair, Crutches, etc.)? No PATIENT GENDER DATA: Female. status: : No status: NO. PATIENT RELEVANT IMPLANT DATA REVIEWED: Not Applicable RADIOLOGY DEPARTMENT: Mammography PERIPHERAL IV DATA: Not applicable SIGNED BY: Dontae LoHomeAway December 08, 2021 12:55 PM documented in this encounterRiverside Methodist Hospital10-17-2022 History of Present illness Narrative* Amos Floyd MD - 12/06/2021 3:07 PM EDT This note was created using [employer]. Subjective Linda Peralta is a 76 year [...] breast - ICD9: V76.12, ICD10: Z12.31 - [facility] [place] Amos Floyd MD documented in this encounterRiverside Methodist Hospital10-13-2022 Miscellaneous Notes* Telephone Encounter - Gifty Velazquez LPN - 12/02/2021 2:54 PM EDT Patient has been identified by name and [...] Please advise. Thank you. Gifty Velazquez LPN * Telephone Encounter - Va Harris - 12/02/2021 10:14 AM EDT Patient has been identified by name and date of : Yes Last office visit in this department: Visit date not found RX INSTRUCTIONS: Patient aware RX will be sent to pharmacy. No need to notify patient. Patient phones requesting refills as follows: last 07/20/21 , hosp follow up 12/06/21 and medicare wellness 12/20/21 Requested Prescriptions Pending Prescriptions Disp Refills simvastatin (ZOCOR) 20 mg tablet 90 tablet 3 Sig: Take 1 tablet by mouth daily at bedtime. Please review and advise. Va Harris documented in this encounterRiverside Methodist Hospital10-06-2022 Instructions* Patient Instructions* Ryan Gale MD - 11/25/2021 10:37 AM EDT Calcipotriene [...] CeraVe moisturizer as well. documented in this encounterRiverside Methodist Hospital10-06-2022 History of Present illness Narrative* Ryan Gale MD - 11/25/2021 9:56 AM EDT Department of Dermatology Ryan Gale MD 11/25/2021 Last visit in Dermatology: 08/25/2021 Objective/Assessment/Plan 1. Atopic neurodermatitis Left Ankle - Anterior, Left Forearm - Anterior, Left Forearm - Posterior, Right Ankle - Anterior Scattered, pruritic excoriated scaly papules Related Medications triamcinolone acetonide (KENALOG) 0.1 % cream Apply 1 application to affected area twice daily. dupilumab 300 mg/2 mL subcutaneous syringe (SpaceIL) Inject 300 mg SQ every 2 weeks [...] by Brii Vargas acting as scribe for Ryan Gale MD. November 25, 2021 10:28 AM Intake [...] the Chief Complaint, ROS, and Past Histories independentlygathered by the clinical clinical support nurse and the remaining scribed note accurately describes my personal service to the patient. Signature: Ryan Gale Date: 11/25/2021 Time: 10:54 PM documented in this encounterRiverside Methodist Hospital09-08-2022 History of Present illness Narrative* Luciana Zuniga RN - 10/28/2021 3:04 PM EDT [facility] CD[facility] Enrollment Provider Action/FYI: lvm x 1 and MC Patient referred by: PCC/PCP referral Contact made with patient: No - Left Message: Hi my name is Luciana Zuniga RN and I am calling from the [facility] on behalf of your PCP, Amos Floyd MD. We are excited to share with you a new program to help you manage your health. Please call me back at [phone] between the hours of 8am-5pm Monday-Monday. You will receive another phone call from me within the next two businessdays. I hope you can take the time to speak with me. (Keep encounter open and attempt 2nd outreachin two business days from today) END OUTREACH documented in this encounterRiverside Methodist Hospital08-25-2022 Miscellaneous Notes* Telephone Encounter - Milagros Burton LPN - 10/14/2021 8:53 AM EDT Patient returned call and went over results, notes from express care provider with understanding. * Telephone Encounter - Sarah Suarez LPN - 10/14/2021 8:07 AM EDT Phone call placed, brief message to contact a nurse. Sarah Suarez LPN * Telephone Encounter - Jefferson Vann APRN.TELLY - 10/14/2021 7:35 AM EDT You tested positive for COVID-19 Follow the [...] return to express care. documented in this encounterRiverside Methodist Hospital08-24-2022 History of Present illness Narrative* Jarek Mendenhall APRN.CNP - 10/13/2021 1:59 PM EDT Subjective Cough Associated symptoms include headaches, sore [...] eczema, due to unspecified cause 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[place]'s disease Cystocele, midline 07/23/2007 Diverticulosis of colon (without mention of hemorrhage) DVT (deep venous thrombosis) ([facility]) 03/23/2012 DVT of lower extremity (deep venous thrombosis) ([facility]) 03/27/09 Esophageal reflux Gallstones 03/06/2016 Hypercalcemia 03/19/2009 Hypertension NSTEMI (non-ST elevated myocardial infarction) ([facility]) April 27, 2009 Cardiac cath normal Other [...] W/COLLJ SPEC WHEN PFRMD 03/26/2010 Inpatient at [facility] ESOPHAGOGASTRODUODENOSCOPY TRANSORAL DIAGNOSTIC 02/2002 EGD ESOPHAGOGASTRODUODENOSCOPY TRANSORAL [...] daily. dupilumab 300 mg/2 mL subcutaneous syringe ([employer]s) Inject 300 mg SQ every 2 weeks [...] Age of Onset Coronary Artery Disease Mother [place] at 87y.o. Hypertension Mother Stroke Father Coronary [...] analgesia. - Discussed expected course of illness Jarek Mendenhall APRN.CNP documented in this encounterRiverside Methodist Hospital08-24-2022 Instructions* Patient Instructions* Jarek Mendenhall APRN.CNP - 10/13/2021 1:58 PM EDT [...] analgesia. - Discussed expected course of illness Jarek Mendenhall APRN.CNP Beginning Home Isolation Isolation is used to separate people infected with SARS-CoV-2, the virus that causes COVID-19, frompeople who are not infected. People who are [...] to your local emergency facility: Notify the mobile lounge driver or operator that you are seeking care for [...] expert at your local health department to determinewhen you can be around others. How to Manage Common Symptoms Associated with COVID for Adults Fever- Fever is a temperature over 100.4 F and can occur when the body is fighting an infection. Tohelp treat a fever: Drink plenty of fluids [...] your chest such as Vicks, which can helpreduce cough. Try cough drops. Avoid smoking and other strong odors or perfumes. Try breathing exercises to keep your lungs open and clear. Take a big deep breath through your noseand hold for 5 seconds before slowly releasing. [...] of water every 10-15 minutes and increase astolerated. You can try sucking an ice cube [...] or concerning to you. documented in this encounterRiverside [facility] Hospital07-06-2022 Instructions* Patient Instructions* Nevin Lee PA-C - 08/25/2021 1:44 PM EDT Images from the original note were not included. documented in this encounterRiverside Methodist Hospital07-06-2022 History of Present illness Narrative* Nevin Lee PA-C - 08/25/2021 1:13 PM EDT Department of Dermatology Nevin Lee MS, PA-C 08/25/2021 Chief Complaint: Patient presents with: Derm Problem HPI Linda Peralta is a 76 year old female who presents for: - F/u seborrheic keratosis and atopic neurodermatitis - THELMA with Nevin Lee MS, REJI on 11/11/20 - SKs treated [...] -unclear etiology -advised following up with Dr. Gale if symptoms persist or worsen despite treatment [...] Past Histories independently gathered by the clinical clinical support nurse. Nevin Lee MS, REJI documented in this encounterRiverside [facility] Hospital05-31-2022 History of Present illness Narrative* Amos Floyd MD - 07/20/2021 9:15 AM EDT This note was created using [employer]. Subjective Linda Peralta is a 76 year [...] TOP) Amos Floyd MD documented in this encounterRiverside [facility] Hospital01-19-2017 History of Past illness Narrative* Problem [...] enzymes. Currently chest pain free and feeling better. Elevation of cardiac enzymes 04/25/200908/2009 Overview: Constitent with significant NSTEMI or late presenting STEMI. Currently CP free without STelevation on EKG so no indication for emergent catheterization. Currently presents with moderately decompensated HF of unknown duration. Exam c/w warm and wet physiology. - admit CICU - follow cardiac enzymes - TTE - heparin, ASA, plavix 300, atorvastatin - plan [facility] tomorrow. Hypokalemia 04/09/2009 05/14/2009 Overview: -Replete. [...] of this encounter (statuses as of 07/20/2021) [facility]01-19-[facility] History of Past illness Narrative* Problem [...] enzymes. Currently chest pain free and feeling better. Elevation of cardiac enzymes 04/25/200908/2009 Overview: Constitent with significant NSTEMI or late presenting STEMI. Currently CP free without STelevation on EKG so no indication for emergent catheterization. Currently presents with moderately decompensated HF of unknown duration. Exam c/w warm and wet physiology. - admit CICU - follow cardiac enzymes - TTE - heparin, ASA, plavix 300, atorvastatin - plan [facility] tomorrow. Hypokalemia 04/09/2009 05/14/2009 Overview: -Replete. [...] of this encounter (statuses as of 08/25/2021) [facility]01-[facility] History of Past illness Narrative* Problem [...] enzymes. Currently chest pain free and feeling better. Elevation of cardiac enzymes 04/25/200908/2009 Overview: Constitent with significant NSTEMI or late presenting STEMI. Currently CP free without STelevation on EKG so no indication for emergent catheterization. Currently presents with moderately decompensated HF of unknown duration. Exam c/w warm and wet physiology. - admit CICU - follow cardiac enzymes - TTE - heparin, ASA, plavix 300, atorvastatin - plan [facility] tomorrow. Hypokalemia 04/09/2009 05/14/2009 Overview: -Replete. [...] of this encounter (statuses as of 10/13/2021) [facility] History of Past illness Narrative* Problem [...] enzymes. Currently chest pain free and feeling better. Elevation of cardiac enzymes 04/25/200908/2009 Overview: Constitent with significant NSTEMI or late presenting STEMI. Currently CP free without STelevation on EKG so no indication for emergent catheterization. Currently presents with moderately decompensated HF of unknown duration. Exam c/w warm and wet physiology. - admit CICU - follow cardiac enzymes - TTE - heparin, ASA, plavix 300, atorvastatin - plan [facility] tomorrow. Hypokalemia 04/09/2009 05/14/2009 Overview: -Replete. [...] of this encounter (statuses as of 10/14/2021) [facility]01-19-2017 History of Past illness Narrative* Problem [...] enzymes. Currently chest pain free and feeling better. Elevation of cardiac enzymes 04/25/200908/2009 Overview: Constitent with significant NSTEMI or late presenting STEMI. Currently CP free without STelevation on EKG so no indication for emergent catheterization. Currently presents with moderately decompensated HF of unknown duration. Exam c/w warm and wet physiology. - admit CICU - follow cardiac enzymes - TTE - heparin, ASA, plavix 300, atorvastatin - plan [facility] tomorrow. Hypokalemia 04/09/2009 05/14/2009 Overview: -Replete. [...] of this encounter (statuses as of 10/28/2021) [facility]01-[facility]2017 History of Past illness Narrative* Problem [...] enzymes. Currently chest pain free and feeling better. Elevation of cardiac enzymes 04/25/200908/2009 Overview: Constitent with significant NSTEMI or late presenting STEMI. Currently CP free without STelevation on EKG so no indication for emergent catheterization. Currently presents with moderately decompensated HF of unknown duration. Exam c/w warm and wet physiology. - admit CICU - follow cardiac enzymes - TTE - heparin, ASA, plavix 300, atorvastatin - plan [facility] tomorrow. Hypokalemia 04/09/2009 05/14/2009 Overview: -Replete. [...] of this encounter (statuses as of 11/26/2021) [facility]01[facility]2017 History of Past illness Narrative* Problem [...] enzymes. Currently chest pain free and feeling better. Elevation of cardiac enzymes 04/25/200908/2009 Overview: Constitent with significant NSTEMI or late presenting STEMI. Currently CP free without STelevation on EKG so no indication for emergent catheterization. Currently presents with moderately decompensated HF of unknown duration. Exam c/w warm and wet physiology. - admit CICU - follow cardiac enzymes - TTE - heparin, ASA, plavix 300, atorvastatin - plan [facility] tomorrow. Hypokalemia 04/09/2009 05/14/2009 Overview: -Replete. [...] of this encounter (statuses as of 12/03/2021) [facility]01[facility]2017 History of Past illness Narrative* Problem [...] enzymes. Currently chest pain free and feeling better. Elevation of cardiac enzymes 04/25/200908/2009 Overview: Constitent with significant NSTEMI or late presenting STEMI. Currently CP free without STelevation on EKG so no indication for emergent catheterization. Currently presents with moderately decompensated HF of unknown duration. Exam c/w warm and wet physiology. - admit CICU - follow cardiac enzymes - TTE - heparin, ASA, plavix 300, atorvastatin - plan [facility] tomorrow. Hypokalemia 04/09/2009 05/14/2009 Overview: -Replete. [...] of this encounter (statuses as of 12/06/2021) [facility]01[facility]2017 History of Past illness Narrative* Problem [...] enzymes. Currently chest pain free and feeling better. Elevation of cardiac enzymes 04/25/200908/2009 Overview: Constitent with significant NSTEMI or late presenting STEMI. Currently CP free without STelevation on EKG so no indication for emergent catheterization. Currently presents with moderately decompensated HF of unknown duration. Exam c/w warm and wet physiology. - admit CICU - follow cardiac enzymes - TTE - heparin, ASA, plavix 300, atorvastatin - plan [facility] tomorrow. Hypokalemia 04/09/2009 05/14/2009 Overview: -Replete. [...] of this encounter (statuses as of 12/09/2021) [facility]2017 History of Past illness Narrative* Problem [...] enzymes. Currently chest pain free and feeling better. Elevation of cardiac enzymes 04/25/200908/2009 Overview: Constitent with significant NSTEMI or late presenting STEMI. Currently CP free without STelevation on EKG so no indication for emergent catheterization. Currently presents with moderately decompensated HF of unknown duration. Exam c/w warm and wet physiology. - admit CICU - follow cardiac enzymes - TTE - heparin, ASA, plavix 300, atorvastatin - plan [facility] tomorrow. Hypokalemia 04/09/2009 05/14/2009 Overview: -Replete. [...] of this encounter (statuses as of 12/10/2021) [facility]2017 History of Past illness Narrative* Problem [...] enzymes. Currently chest pain free and feeling better. Elevation of cardiac enzymes 04/25/200908/2009 Overview: Constitent with significant NSTEMI or late presenting STEMI. Currently CP free without STelevation on EKG so no indication for emergent catheterization. Currently presents with moderately decompensated HF of unknown duration. Exam c/w warm and wet physiology. - admit CICU - follow cardiac enzymes - TTE - heparin, ASA, plavix 300, atorvastatin - plan [facility] tomorrow. Hypokalemia 04/09/2009 05/14/2009 Overview: -Replete. [...] of this encounter (statuses as of 12/20/2021) [facility]01[facility]2017 History of Past illness Narrative* Problem [...] enzymes. Currently chest pain free and feeling better. Elevation of cardiac enzymes 04/25/200908/2009 Overview: Constitent with significant NSTEMI or late presenting STEMI. Currently CP free without STelevation on EKG so no indication for emergent catheterization. Currently presents with moderately decompensated HF of unknown duration. Exam c/w warm and wet physiology. - admit CICU - follow cardiac enzymes - TTE - heparin, ASA, plavix 300, atorvastatin - plan [facility] tomorrow. Hypokalemia 04/09/2009 05/14/2009 Overview: -Replete. [...] of this encounter (statuses as of 02/25/2022) [facility]01[facility]2017 History of Past illness Narrative* Problem [...] enzymes. Currently chest pain free and feeling better. Elevation of cardiac enzymes 04/25/200908/2009 Overview: Constitent with significant NSTEMI or late presenting STEMI. Currently CP free without STelevation on EKG so no indication for emergent catheterization. Currently presents with moderately decompensated HF of unknown duration. Exam c/w warm and wet physiology. - admit CICU - follow cardiac enzymes - TTE - heparin, ASA, plavix 300, atorvastatin - plan [facility] tomorrow. Hypokalemia 04/09/2009 05/14/2009 Overview: -Replete. [...] of this encounter (statuses as of 03/15/2022) [facility]2017 History of Past illness Narrative* Problem [...] enzymes. Currently chest pain free and feeling better. Elevation of cardiac enzymes 04/25/200908/2009 Overview: Constitent [...] of this encounter (statuses as of 03/16/2022) [facility]2017 History of Past illness Narrative* Problem [...] enzymes. Currently chest pain free and feeling better. Elevation of cardiac enzymes 04/25/200908/2009 Overview: Constitent with significant NSTEMI or late presenting STEMI. Currently CP free without STelevation on EKG so no indication for emergent catheterization. Currently presents with moderately decompensated HF of unknown duration. Exam c/w warm and wet physiology. - admit CICU - follow cardiac enzymes - TTE - heparin, ASA, plavix 300, atorvastatin - plan [facility] tomorrow. Hypokalemia 04/09/2009 05/14/2009 Overview: -Replete. [...] of this encounter (statuses as of 06/06/2022) [facility]2017 History of Past illness Narrative* Problem [...] enzymes. Currently chest pain free and feeling better. Elevation of cardiac enzymes 04/25/200908/2009 Overview: Constitent with significant NSTEMI or late presenting STEMI. Currently CP free without STelevation on EKG so no indication for emergent catheterization. Currently presents with moderately decompensated HF of unknown duration. Exam c/w warm and wet physiology. - admit CICU - follow cardiac enzymes - TTE - heparin, ASA, plavix 300, atorvastatin - plan [facility] tomorrow. Hypokalemia 04/09/2009 05/14/2009 Overview: -Replete. [...] of this encounter (statuses as of 07/20/2022) [facility]01[facility]2017 History of Past illness Narrative* Problem [...] enzymes. Currently chest pain free and feeling better. Elevation of cardiac enzymes 04/25/200908/2009 Overview: Constitent with significant NSTEMI or late presenting STEMI. Currently CP free without STelevation on EKG so no indication for emergent catheterization. Currently presents with moderately decompensated HF of unknown duration. Exam c/w warm and wet physiology. - admit CICU - follow cardiac enzymes - TTE - heparin, ASA, plavix 300, atorvastatin - plan [facility] tomorrow. Hypokalemia 04/09/2009 05/14/2009 Overview: -Replete. [...] of this encounter (statuses as of 07/23/2022) [facility]01[facility]2017 History of Past illness Narrative* Problem [...] enzymes. Currently chest pain free and feeling better. Elevation of cardiac enzymes 04/25/200908/2009 Overview: Constitent with significant NSTEMI or late presenting STEMI. Currently CP free without STelevation on EKG so no indication for emergent catheterization. Currently presents with moderately decompensated HF of unknown duration. Exam c/w warm and wet physiology. - admit CICU - follow cardiac enzymes - TTE - heparin, ASA, plavix 300, atorvastatin - plan [facility] tomorrow. Hypokalemia 04/09/2009 05/14/2009 Overview: -Replete. [...] of this encounter (statuses as of 07/27/2022) [facility]2017 History of Past illness Narrative* Problem [...] enzymes. Currently chest pain free and feeling better. Elevation of cardiac enzymes 04/25/2009 08/26/2009 Overview: Constitent with significant NSTEMI or late presenting STEMI. Currently CP free without STelevation on EKG so no indication for emergent catheterization. Currently presents with moderately decompensated HF of unknown duration. Exam c/w warm and wet physiology. - admit CICU - follow cardiac enzymes - TTE - heparin, ASA, plavix 300, atorvastatin - plan [facility] tomorrow. Hypokalemia 04/09/2009 05/14/2009 Overview: -Replete. [...] of this encounter (statuses as of 09/20/2022) [facility]2017 History of Past illness Narrative* Problem [...] enzymes. Currently chest pain free and feeling better. Elevation of cardiac enzymes 04/25/2009 08/26/2009 Overview: Constitent with significant NSTEMI or late presenting STEMI. Currently CP free without STelevation on EKG so no indication for emergent catheterization. Currently presents with moderately decompensated HF of unknown duration. Exam c/w warm and wet physiology. - admit CICU - follow cardiac enzymes - TTE - heparin, ASA, plavix 300, atorvastatin - plan [facility] tomorrow. Hypokalemia 04/09/2009 05/14/2009 Overview: -Replete. [...] of this encounter (statuses as of 10/27/2022) [facility]2017 History of Past illness Narrative* Problem [...] enzymes. Currently chest pain free and feeling better. Elevation of cardiac enzymes 04/25/2009 08/26/2009 Overview: Constitent with significant NSTEMI or late presenting STEMI. Currently CP free without STelevation on EKG so no indication for emergent catheterization. Currently presents with moderately decompensated HF of unknown duration. Exam c/w warm and wet physiology. - admit CICU - follow cardiac enzymes - TTE - heparin, ASA, plavix 300, atorvastatin - plan [facility] tomorrow. Hypokalemia 04/09/2009 05/14/2009 Overview: -Replete. [...] of this encounter (statuses as of 11/01/2022) [facility]2017 History of Past illness Narrative* Problem [...] enzymes. Currently chest pain free and feeling better. Elevation of cardiac enzymes 04/25/2009 08/26/2009 Overview: Constitent with significant NSTEMI or late presenting STEMI. Currently CP free without STelevation on EKG so no indication for emergent catheterization. Currently presents with moderately decompensated HF of unknown duration. Exam c/w warm and wet physiology. - admit CICU - follow cardiac enzymes - TTE - heparin, ASA, plavix 300, atorvastatin - plan [facility] tomorrow. Hypokalemia 04/09/2009 05/14/2009 Overview: -Replete. [...] of this encounter (statuses as of 11/08/2022) [facility]01[facility]2017 History of Past illness Narrative* Problem [...] enzymes. Currently chest pain free and feeling better. Elevation of cardiac enzymes 04/25/2009 08/26/2009 Overview: Constitent with significant NSTEMI or late presenting STEMI. Currently CP free without STelevation on EKG so no indication for emergent catheterization. Currently presents with moderately decompensated HF of unknown duration. Exam c/w warm and wet physiology. - admit CICU - follow cardiac enzymes - TTE - heparin, ASA, plavix 300, atorvastatin - plan [facility] tomorrow. Hypokalemia 04/09/2009 05/14/2009 Overview: -Replete. [...] of this encounter (statuses as of 12/02/2022) [facility]2017 History of Past illness Narrative* Problem [...] enzymes. Currently chest pain free and feeling better. Elevation of cardiac enzymes 04/25/2009 08/26/2009 Overview: Constitent with significant NSTEMI or late presenting STEMI. Currently CP free without STelevation on EKG so no indication for emergent catheterization. Currently presents with moderately decompensated HF of unknown duration. Exam c/w warm and wet physiology. - admit CICU - follow cardiac enzymes - TTE - heparin, ASA, plavix 300, atorvastatin - plan [facility] tomorrow. Hypokalemia 04/09/2009 05/14/2009 Overview: -Replete. [...] of this encounter (statuses as of 12/19/2022) [facility]2017 History of Past illness Narrative* Problem [...] enzymes. Currently chest pain free and feeling better. Elevation of cardiac enzymes 04/25/2009 08/26/2009 Overview: Constitent with significant NSTEMI or late presenting STEMI. Currently CP free without STelevation on EKG so no indication for emergent catheterization. Currently presents with moderately decompensated HF of unknown duration. Exam c/w warm and wet physiology. - admit CICU - follow cardiac enzymes - TTE - heparin, ASA, plavix 300, atorvastatin - plan [facility] tomorrow. Hypokalemia 04/09/2009 05/14/2009 Overview: -Replete. [...] of this encounter (statuses as of 12/25/2022) [facility]01[facility]2017 History of Past illness Narrative* Problem [...] enzymes. Currently chest pain free and feeling better. Elevation of cardiac enzymes 04/25/2009 08/26/2009 Overview: Constitent with significant NSTEMI or late presenting STEMI. Currently CP free without STelevation on EKG so no indication for emergent catheterization. Currently presents with moderately decompensated HF of unknown duration. Exam c/w warm and wet physiology. - admit CICU - follow cardiac enzymes - TTE - heparin, ASA, plavix 300, atorvastatin - plan [facility] tomorrow. Hypokalemia 04/09/2009 05/14/2009 Overview: -Replete. [...] of this encounter (statuses as of 01/19/2023) [facility]2017 History of Past illness Narrative* Problem [...] enzymes. Currently chest pain free and feeling better. Elevation of cardiac enzymes 04/25/2009 08/26/2009 Overview: Constitent with significant NSTEMI or late presenting STEMI. Currently CP free without STelevation on EKG so no indication for emergent catheterization. Currently presents with moderately decompensated HF of unknown duration. Exam c/w warm and wet physiology. - admit CICU - follow cardiac enzymes - TTE - heparin, ASA, plavix 300, atorvastatin - plan [facility] tomorrow. Hypokalemia 04/09/2009 05/14/2009 Overview: -Replete. [...] of this encounter (statuses as of 01/19/2023) [facility]2017 History of Past illness Narrative* Problem [...] enzymes. Currently chest pain free and feeling better. Elevation of cardiac enzymes 04/25/2009 08/26/2009 Overview: Constitent with significant NSTEMI or late presenting STEMI. Currently CP free without STelevation on EKG so no indication for emergent catheterization. Currently presents with moderately decompensated HF of unknown duration. Exam c/w warm and wet physiology. - admit CICU - follow cardiac enzymes - TTE - heparin, ASA, plavix 300, atorvastatin - plan [facility] tomorrow. Hypokalemia 04/09/2009 05/14/2009 Overview: -Replete. [...] of this encounter (statuses as of 03/24/2023) [facility]2017 History of Past illness Narrative* Problem [...] enzymes. Currently chest pain free and feeling better. Elevation of cardiac enzymes 04/25/2009 08/26/2009 Overview: Constitent with significant NSTEMI or late presenting STEMI. Currently CP free without STelevation on EKG so no indication for emergent catheterization. Currently presents with moderately decompensated HF of unknown duration. Exam c/w warm and wet physiology. - admit CICU - follow cardiac enzymes - TTE - heparin, ASA, plavix 300, atorvastatin - plan [facility] tomorrow. Hypokalemia 04/09/2009 05/14/2009 Overview: -Replete. [...] of this encounter (statuses as of 03/28/2023) [facility]2017 History of Past illness Narrative* Problem [...] enzymes. Currently chest pain free and feeling better. Elevation of cardiac enzymes 04/25/2009 08/26/2009 Overview: Constitent with significant NSTEMI or late presenting STEMI. Currently CP free without STelevation on EKG so no indication for emergent catheterization. Currently presents with moderately decompensated HF of unknown duration. Exam c/w warm and wet physiology. - admit CICU - follow cardiac enzymes - TTE - heparin, ASA, plavix 300, atorvastatin - plan [facility] tomorrow. Hypokalemia 04/09/2009 05/14/2009 Overview: -Replete. [...] of this encounter (statuses as of 04/03/2023) [facility]2017 History of Past illness Narrative* Problem [...] enzymes. Currently chest pain free and feeling better. Elevation of cardiac enzymes 04/25/2009 08/26/2009 Overview: Constitent with significant NSTEMI or late presenting STEMI. Currently CP free without STelevation on EKG so no indication for emergent catheterization. Currently presents with moderately decompensated HF of unknown duration. Exam c/w warm and wet physiology. - admit CICU - follow cardiac enzymes - TTE - heparin, ASA, plavix 300, atorvastatin - plan [facility] tomorrow. Hypokalemia 04/09/2009 05/14/2009 Overview: -Replete. [...] as of this encounter (statuses as of 04/11/2023) [facility]2017 History of Past illness Narrative* Problem [...] enzymes. Currently chest pain free and feeling better. Elevation of cardiac enzymes 04/25/2009 08/26/2009 Overview: Constitent with significant NSTEMI or late presenting STEMI. Currently CP free without STelevation on EKG so no indication for emergent catheterization. Currently presents with moderately decompensated HF of unknown duration. Exam c/w warm and wet physiology. - admit CICU - follow cardiac enzymes - TTE - heparin, ASA, plavix 300, atorvastatin - plan [facility] tomorrow. Hypokalemia 04/09/2009 05/14/2009 Overview: -Replete. [...] as of this encounter (statuses as of 05/02/2023) [facility]2017 History of Past illness Narrative* Problem [...] enzymes. Currently chest pain free and feeling better. Elevation of cardiac enzymes 04/25/2009 08/26/2009 Overview: Constitent with significant NSTEMI or late presenting STEMI. Currently CP free without STelevation on EKG so no indication for emergent catheterization. Currently presents with moderately decompensated HF of unknown duration. Exam c/w warm and wet physiology. - admit CICU - follow cardiac enzymes - TTE - heparin, ASA, plavix 300, atorvastatin - plan [facility] tomorrow. Hypokalemia 04/09/2009 05/14/2009 Overview: -Replete. [...] as of this encounter (statuses as of 05/09/2023) [facility]2017 History of Past illness Narrative* Problem [...] enzymes. Currently chest pain free and feeling better. Elevation of cardiac enzymes 04/25/2009 08/26/2009 Overview: Constitent with significant NSTEMI or late presenting STEMI. Currently CP free without STelevation on EKG so no indication for emergent catheterization. Currently presents with moderately decompensated HF of unknown duration. Exam c/w warm and wet physiology. - admit CICU - follow cardiac enzymes - TTE - heparin, ASA, plavix 300, atorvastatin - plan [facility] tomorrow. Hypokalemia 04/09/2009 05/14/2009 Overview: -Replete. [...] as of this encounter (statuses as of 05/15/2023) [facility]2017 History of Past illness Narrative* Problem [...] enzymes. Currently chest pain free and feeling better. Elevation of cardiac enzymes 04/25/2009 08/26/2009 Overview: Constitent with significant NSTEMI or late presenting STEMI. Currently CP free without STelevation on EKG so no indication for emergent catheterization. Currently presents with moderately decompensated HF of unknown duration. Exam c/w warm and wet physiology. - admit CICU - follow cardiac enzymes - TTE - heparin, ASA, plavix 300, atorvastatin - plan [facility] tomorrow. Hypokalemia 04/09/2009 05/14/2009 Overview: -Replete. [...] as of this encounter (statuses as of 05/23/2023) [facility]2017 History of Past illness Narrative* Problem [...] enzymes. Currently chest pain free and feeling better. Elevation of cardiac enzymes 04/25/2009 08/26/2009 Overview: Constitent with significant NSTEMI or late presenting STEMI. Currently CP free without STelevation on EKG so no indication for emergent catheterization. Currently presents with moderately decompensated HF of unknown duration. Exam c/w warm and wet physiology. - admit CICU - follow cardiac enzymes - TTE - heparin, ASA, plavix 300, atorvastatin - plan [facility] tomorrow. Hypokalemia 04/09/2009 05/14/2009 Overview: -Replete. [...] as of this encounter (statuses as of 05/23/2023) [facility]2017 History of Past illness Narrative* Problem [...] enzymes. Currently chest pain free and feeling better. Elevation of cardiac enzymes 04/25/2009 08/26/2009 Overview: Constitent with significant NSTEMI or late presenting STEMI. Currently CP free without STelevation on EKG so no indication for emergent catheterization. Currently presents with moderately decompensated HF of unknown duration. Exam c/w warm and wet physiology. - admit CICU - follow cardiac enzymes - TTE - heparin, ASA, plavix 300, atorvastatin - plan [facility] tomorrow. Hypokalemia 04/09/2009 05/14/2009 Overview: -Replete. [...] as of this encounter (statuses as of 05/24/2023) [facility]2017 History of Past illness Narrative* Problem [...] enzymes. Currently chest pain free and feeling better. Elevation of cardiac enzymes 04/25/2009 08/26/2009 Overview: Constitent with significant NSTEMI or late presenting STEMI. Currently CP free without STelevation on EKG so no indication for emergent catheterization. Currently presents with moderately decompensated HF of unknown duration. Exam c/w warm and wet physiology. - admit CICU - follow cardiac enzymes - TTE - heparin, ASA, plavix 300, atorvastatin - plan [facility] tomorrow. Hypokalemia 04/09/2009 05/14/2009 Overview: -Replete. [...] as of this encounter (statuses as of 05/25/2023) [facility]2017 History of Past illness Narrative* Problem [...] enzymes. Currently chest pain free and feeling better. Elevation of cardiac enzymes 04/25/2009 08/26/2009 Overview: Constitent with significant NSTEMI or late presenting STEMI. Currently CP free without STelevation on EKG so no indication for emergent catheterization. Currently presents with moderately decompensated HF of unknown duration. Exam c/w warm and wet physiology. - admit CICU - follow cardiac enzymes - TTE - heparin, ASA, plavix 300, atorvastatin - plan [facility] tomorrow. Hypokalemia 04/09/2009 05/14/2009 Overview: -Replete. [...] as of this encounter (statuses as of 06/01/2023) [facility]2017 History of Past illness Narrative* Problem [...] enzymes. Currently chest pain free and feeling better. Elevation of cardiac enzymes 04/25/2009 08/26/2009 Overview: Constitent with significant NSTEMI or late presenting STEMI. Currently CP free without STelevation on EKG so no indication for emergent catheterization. Currently presents with moderately decompensated HF of unknown duration. Exam c/w warm and wet physiology. - admit CICU - follow cardiac enzymes - TTE - heparin, ASA, plavix 300, atorvastatin - plan [facility] tomorrow. Hypokalemia 04/09/2009 05/14/2009 Overview: -Replete. [...] as of this encounter (statuses as of 06/01/2023) [facility]2017 History of Past illness Narrative* Problem [...] enzymes. Currently chest pain free and feeling better. Elevation of cardiac enzymes 04/25/2009 08/26/2009 Overview: Constitent with significant NSTEMI or late presenting STEMI. Currently CP free without STelevation on EKG so no indication for emergent catheterization. Currently presents with moderately decompensated HF of unknown duration. Exam c/w warm and wet physiology. - admit CICU - follow cardiac enzymes - TTE - heparin, ASA, plavix 300, atorvastatin - plan [facility] tomorrow. Hypokalemia 04/09/2009 05/14/2009 Overview: -Replete. [...] as of this encounter (statuses as of 06/01/2023) [facility]01-[facility]-2017 History of Past illness Narrative* Problem [...] enzymes. Currently chest pain free and feeling better. Elevation of cardiac enzymes 04/25/2009 08/26/2009 Overview: Constitent with significant NSTEMI or late presenting STEMI. Currently CP free without STelevation on EKG so no indication for emergent catheterization. Currently presents with moderately decompensated HF of unknown duration. Exam c/w warm and wet physiology. - admit CICU - follow cardiac enzymes - TTE - heparin, ASA, plavix 300, atorvastatin - plan [facility] tomorrow. Hypokalemia 04/09/2009 05/14/2009 Overview: -Replete. [...] as of this encounter (statuses as of 06/09/2023) [facility]01-[facility]2017 History of Past illness Narrative* Problem [...] enzymes. Currently chest pain free and feeling better. Elevation of cardiac enzymes 04/25/2009 08/26/2009 Overview: Constitent with significant NSTEMI or late presenting STEMI. Currently CP free without STelevation on EKG so no indication for emergent catheterization. Currently presents with moderately decompensated HF of unknown duration. Exam c/w warm and wet physiology. - admit CICU - follow cardiac enzymes - TTE - heparin, ASA, plavix 300, atorvastatin - plan [facility] tomorrow. Hypokalemia 04/09/2009 05/14/2009 Overview: -Replete. [...] as of this encounter (statuses as of 06/12/2023) [facility]03-[facility]-2010 Evaluation note* Diagnosis Onset Date Resolution Status Essential (primary) hypertension chronic History of pulmonary embolism chronic Hyperlipidemia chronic History of non-ST elevation myocardial infarction (NSTEMI) April, [facility] Work Phone: Evaluation note* Diagnosis Onset Date Resolution Status Chest pain acute Essential (primary) hypertension acute History of pulmonary embolism chronic Hyperlipidemia [facility] Work Phone: Evaluation note* Diagnosis Adrenal hypofunction (HCC)- Primary Glucocorticoid deficiency Primary hypertension Unspecified essential hypertension ASHD (arteriosclerotic heart disease) Coronary atherosclerosis of unspecified type of vessel, [place] or graft Hip pain Pain in joint, pelvic region and thigh Need for COVID-19 vaccine [facility] Diagnosis Onset Date Resolution Status Chest pain acute Essential (primary) hypertension chronic History of pulmonary embolism chronic Hyperlipidemia chronic Essential (primary) hypertension chronic History of pulmonary embolism chronic Hyperlipidemia [facility] Work Phone: Evaluation note* Diagnosis Onset Date Resolution Status Essential (primary) hypertension chronic History of pulmonary embolism chronic Hyperlipidemia [facility] Work Phone: Evaluation note* Diagnosis Atopic neurodermatitis- Primary Other atopic dermatitis and related conditions [facility] Diagnosis Suspected COVID-19 virus infection- Primary documented in this encounter [facility] note* Diagnosis Stage 3b chronic kidney disease (HCC)- Primary [facility] Diagnosis Onset Date Resolution Status ANGELA (acute kidney injury) ac [place] Elevated troponin acute Hypotension acute [place] disease chronic 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 chron ic [facility] Work Phone: evaluation note* Diagnosis Onset Date Resolution Status [place] disease acute ANGELA (acute kidney injury) ac [place] Elevated troponin acute Hypotension acute 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 chron ic 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, stage 3 chronic detention (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 chronic [facility] Work Phone: Evaluation note* Diagnosis Atopic neurodermatitis- Primary Other atopic dermatitis and related conditions documented in this encounter [facility] note* Diagnosis Onset Date Resolution Status ANGELA (acute kidney injury) re solved Elevated troponin resolved Hypotension resolved [facility] Work Phone: evaluation note* Diagnosis Pure hypercholesterolemia documented in this encounter [facility] note* Diagnosis Hypotension due to hypovolemia- Primary Elevated troponin Other abnormal blood chemistry Acute kidney injury (HCC) Acute kidney failure, unspecified Stage 3b chronic kidney disease (HCC) Hypercalcemia Anticoagulated on Coumadin Encounter for therapeutic drug monitoring Breast pain, left Mastodynia Encounter for screening mammogram for malignant neoplasm of breast Other screening mammogram [facility]* Diagnosis Encounter for screening mammogram for malignant neoplasm of breast Other screening mammogram documented in this encounter [facility] note* Diagnosis Medicare annual wellness visit, subsequent- Primary Routine general medical examination at a health care facility Hypertension, unspecified type Pure hypercholesterolemia Encounter for immunization Need for other specified prophylactic vaccination against single bacterial disease documented in this encounter [facility] note* Diagnosis Onset Date Resolution Status [place] disease acute ANGELA (acute kidney injury) re solved Elevated troponin resolved Hypotension resolved [place] disease acute Osteoporosis acute Essential (primary) hypertension chronic History of pulmonary embolism chronic Hyperlipidemia chronic History of non-ST elevation myocardial infarction (NSTEMI) April, resolved [facility] Work Phone: evaluation note* Diagnosis Onset Date Resolution Status [place] disease acute ANGELA (acute kidney injury) re solved Elevated troponin resolved Hypotension resolved [place] disease acute Osteoporosis acute Essential (primary) hypertension chronic History of pulmonary embolism chronic Hyperlipidemia chronic History of non-ST elevation myocardial infarction (NSTEMI) April, resolved Essential (primary) hypertension chronic History of pulmonary embolism chronic Hyperlipidemia chronic History of non-ST elevation myocardial infarction (NSTEMI) April, resolved [facility] Work Phone: Evaluation note* Diagnosis Atopic neurodermatitis- Primary Other atopic dermatitis and related conditions [facility] Diagnosis Atopic neurodermatitis Other atopic dermatitis and related conditions [facility] Diagnosis Onset Date Resolution Status [place] disease acute Osteoporosis acute Essential (primary) hypertension chronic History of pulmonary embolism chronic Hyperlipidemia chronic History of non-ST elevation myocardial infarction (NSTEMI) April, resolved Essential (primary) hypertension chronic History of pulmonary embolism chronic Hyperlipidemia chronic History of non-ST elevation myocardial infarction (NSTEMI) April, resolved [facility] Work Phone: Evaluation noteNo assessment information available [facility] Work Phone: Evaluation note* Diagnosis Primary hypertension- Primary Unspecified essential hypertension Pure hypercholesterolemia Stage 3b chronic kidney disease (HCC) ASHD (arteriosclerotic heart disease) Coronary atherosclerosis of unspecified type of vessel, [place] or graft Osteopenia, unspecified location [facility] Diagnosis Onset Date Resolution Status Aortic stenosis acute MVP (mitral valve prolapse) acute 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, stage 3 chronic Essential (primary) hypertension chronic History of pulmonary embolism chronic Hyperlipidemia chronic History of non-ST elevation myocardial infarction (NSTEMI) April, resolved [facility] Work Phone: Evaluation note* Diagnosis Hip pain, unspecified laterality- Primary Stage 3b chronic kidney disease (HCC) Deep vein thrombosis (DVT) of lower extremity, unspecified chronicity, unspecified laterality, unspecified vein (HCC) Need for influenza vaccination Need for prophylactic vaccination and inoculation against influenza [facility] Diagnosis Hip pain, unspecified laterality [M25.559]- Primary [facility] Diagnosis Foot pain, right- Primary Pain in limb Closed fracture of right foot, initial encounter [facility] Diagnosis Pure hypercholesterolemia [facility] Diagnosis Closed displaced fracture of fifth metatarsal bone of right foot, initial encounter- Primary [facility]* Diagnosis Onset Date Resolution Status [place] disease chronic Osteoporosis chronic [facility] Work Phone: Evaluation note* Diagnosis Closed displaced fracture of fifth metatarsal bone of right foot, initial encounter [facility]* Diagnosis Closed displaced fracture of fifth metatarsal bone of right foot, initial encounter [facility]* Diagnosis Closed displaced fracture of fifth metatarsal bone of right foot, initial encounter documented in this encounter [facility] note* Diagnosis Medicare annual wellness visit, subsequent- Primary Routine general medical [facility] Primary hypertension Unspecified essential hypertension [...] COVID-19 vaccine Hypercalcemia documented in this encounter [facility] note* Diagnosis Onset Date Resolution Status [place] disease chronic Osteoporosis chronic Aortic stenosis acute Dizziness acute MVP (mitral valve prolapse) acute 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, stage 3 chronic Essential (primary) hypertension chronic History of pulmonary embolism chronic Hyperlipidemia chronic History of non-ST elevation myocardial infarction (NSTEMI) April, resolved [facility] Work Phone: Evaluation note* Diagnosis Gait abnormality- Primary Abnormality of gait Hip pain, unspecified laterality Closed displaced fracture of fifth metatarsal bone of right foot with delayed healing, subsequent encounter documented in this encounter [facility] note* Diagnosis Gait abnormality- Primary Abnormality of gait Hip pain, unspecified laterality Closed displaced fracture of fifth metatarsal bone of right foot with delayed healing, subsequent encounter [facility]* Diagnosis Onset Date Resolution Status Aortic stenosis acute Dizziness acute MVP (mitral valve prolapse) acute 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, stage 3 chronic Essential (primary) hypertension chronic History of pulmonary embolism chronic Hyperlipidemia chronic History of non-ST elevation myocardial infarction (NSTEMI) April, resolved [facility] Work Phone: Evaluation note* Diagnosis Gait abnormality- Primary Abnormality of gait Hip pain, unspecified laterality Closed displaced fracture of fifth metatarsal bone of right foot with delayed healing, subsequent encounter [facility] Hypercalcemia- Primary [facility] Diagnosis Hypercalcemia- Primary Fatigue, unspecified type Urinary frequency Myalgias Confusion Unspecified psychosis Weakness Other malaise and fatigue [facility]* Diagnosis Hypercalcemia- Primary [place] disease (CMS/HCC) Glucocorticoid deficiency Anemia in chronic kidney disease 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, unspecified Generalized muscle weakness Muscle weakness (generalized) Hypertensive kidney disease with stage 3b chronic kidney disease (CMS/HCC) Urinary tract infection, site not specified documented in this encounter [facility] Work Phone: Evaluation note* Diagnosis Physical deconditioning- Primary Debility, unspecified Muscle weakness Muscle weakness (generalized) Gait abnormality Abnormality of gait [facility]* Diagnosis Other specified hypotension- Primary [place] disease (HCC) Glucocorticoid deficiency Hypercalcemia documented in this encounter [facility] note* Diagnosis Gait abnormality- Primary Abnormality of gait Physical deconditioning Debility, unspecified Weakness Other malaise and fatigue [facility] Diagnosis Physical deconditioning- Primary Debility, unspecified Gait abnormality Abnormality of gait Muscle weakness Muscle weakness (generalized) [facility]* Diagnosis Physical deconditioning- Primary Debility, unspecified Gait abnormality Abnormality of gait Weakness Other malaise and fatigue [facility]* Diagnosis Physical deconditioning- Primary Debility, unspecified Gait abnormality Abnormality of gait Weakness Other malaise and fatigue [facility]* Diagnosis Hypercalcemia- Primary Age-related osteoporosis with current pathological fracture with routine healing Aftercare for healing pathologic fracture of other bone Hypokalemia Hypopotassemia Adrenal hypofunction (HCC) Glucocorticoid deficiency NSTEMI (non-ST elevated myocardial infarction) ([facility]) Acute myocardial infarction, subendocardial infarction, episode of care unspecified ASHD (arteriosclerotic heart disease) Coronary atherosclerosis of unspecified type of vessel, [place] or graft Nonrheumatic aortic valve stenosis Aortic valve disorders [facility]* Diagnosis Physical deconditioning- Primary Debility, unspecified Gait abnormality Abnormality of gait Weakness Other malaise and fatigue [facility] Diagnosis Physical deconditioning- Primary Debility, unspecified Gait abnormality Abnormality of gait Weakness Other malaise and fatigue [facility] Diagnosis Primary hypertension- Primary Unspecified essential hypertension Hypercalcemia Adrenal hypofunction (HCC) Glucocorticoid deficiency Nonrheumatic aortic valve stenosis Aortic valve disorders [facility] Diagnosis Abnormal finding of diagnostic imaging- Primary Other nonspecific (abnormal) findings on radiological and other examinations of body structure [facility] Diagnosis Physical deconditioning- Primary Debility, unspecified Gait abnormality Abnormality of gait Weakness Other malaise and fatigue [facility] Diagnosis Physical deconditioning- Primary Debility, unspecified Gait abnormality Abnormality of gait Weakness Other malaise and fatigue [facility] Diagnosis Physical deconditioning- Primary Debility, unspecified Gait abnormality Abnormality of gait Weakness Other malaise and fatigue [facility]* Diagnosis Foot pain, right Pain in limb [facility] Diagnosis Hip pain, unspecified laterality [facility]* Diagnosis Age-related osteoporosis with current pathological fracture with routine healing- Primary Aftercare for healing pathologic fracture of other bone Hypercalcemia Adrenal hypofunction (HCC) Glucocorticoid deficiency [facility] Diagnosis Pure hypercholesterolemia [facility]* Diagnosis Age-related osteoporosis with current pathological fracture with routine healing- Primary Aftercare for healing pathologic fracture of other bone [facility] Diagnosis Age-related osteoporosis with current pathological fracture with routine healing- Primary Aftercare for healing pathologic fracture of other bone [facility]* Diagnosis Abnormal finding of diagnostic imaging- Primary Other nonspecific (abnormal) findings on radiological and other examinations of body structure [facility] Diagnosis Abnormal finding of diagnostic imaging- Primary Other nonspecific (abnormal) findings on radiological and other examinations of body structure [facility] Diagnosis Abnormal finding of diagnostic imaging Other nonspecific (abnormal) findings on radiological and other examinations of body structure [facility] Diagnosis Age-related osteoporosis with current pathological fracture with routine healing- Primary Aftercare for healing pathologic fracture of other bone [facility] Diagnosis Nodule of lower lobe of right lung needing follor up CT- Primary [facility] Diagnosis Medicare annual wellness visit, subsequent- Primary Routine general medical examination at a health care facility Encounter for immunization Need for other specified prophylactic vaccination against single bacterial disease Need for influenza vaccination Need for prophylactic vaccination and inoculation against influenza Screening for depression Encounter for screening examination for other mental health and behavioral disorders Primary hypertension Unspecified essential hypertension Stage 3b chronic kidney disease (HCC) Hypertensive kidney disease with stage 3b chronic kidney disease (HCC) Age-related osteoporosis with current pathological fracture with routine healing Aftercare for healing pathologic fracture of other bone Nodule of lower lobe of right lung needing follor up CT Closed displaced fracture of fifth metatarsal bone of right foot with delayed healing, subsequent encounter Pure hypercholesterolemia 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 Personal history of venous thrombosis and embolism [facility] Diagnosis Nodule of lower lobe of right lung needing follor up CT [facility] Diagnosis Thyroid nodule- Primary Nontoxic uninodular goiter [facility] Diagnosis ASHD (arteriosclerotic heart disease)- Primary Coronary atherosclerosis of unspecified type of vessel, [place] or graft Primary hypertension Unspecified essential hypertension Nonrheumatic aortic valve stenosis Aortic valve disorders Subconjunctival hemorrhage of left eye Chronic nonallergic rhinitis Chronic rhinitis Stage 3b chronic kidney disease (HCC) Adrenal insufficiency (HCC) Glucocorticoid deficiency Encounter for immunization Need for other specified prophylactic vaccination against single bacterial disease documented in this encounter [facility] for referral (narrative)* Diagnostic Procedure Only (Routine) - Authorized Specialty Diagnoses / Procedures Referred By Fransico t Referred To Contact [facility] Diagnoses Encounter for screening mammogram for malignant neoplasm of breast Procedures TAE SCREENING SCREENING MAMMOGRAPHY BI 2-VIEW BREAST INC Amos Higgins MD [address] [place] [address] [facility] [address] [place] [address] Referral ID Status Reason Start Date Expiration Date Visits Requested Visits Authorized [id number] Authorized Auto-Generat ed Referral 2 01/05/2023 1 1 [facility] for referral (narrative)* Diagnostic Procedure Only (Routine) - Closed Specialty Diagnoses / Procedures Referred By Fransico t Referred To Contact [facility] Diagnoses Encounter for screening mammogram for malignant neoplasm of breast Procedures TAE SCREENING SCREENING MAMMOGRAPHY BI 2-VIEW BREAST INC Amos Higgins MD [address] [place] [address] [facility] [address] [place] [address] Referral ID Status Reason Start Date Expiration Date V isits Requested Visits Authorized [id number] Closed Auto-Generate d Referral 12/06/2021 01/05/2023 1 1 [facility] for referral (narrative)* Diagnostic Procedure Only (Routine) - Pending Review Specialty Diagnoses / Procedures Referred By Contac t Referred To Contact XR IMAGING Diagnoses Closed displaced fracture of fifth metatarsal bone of right foot, initial encounter Procedures XR FOOT GENERAL 3V AP/LAT/OBL RIGHT RADEX FOOT COMPLETE MINIMUM 3 VIEWS Omar [address] [place] [address] [place] [address] Referral ID Status Reason Start Date Expiration Date Visits Requested Visits Authorized [id number] Pending Review Auto-Generat ed Referral 3 01/18/2024 1 1 [facility] for referral (narrative)* Diagnostic Procedure Only (Routine) - Closed Specialty Diagnoses / Procedures Referred By Contac t Referred To Contact XR IMAGING Diagnoses Closed displaced fracture of fifth metatarsal bone of right foot, initial encounter Procedures XR FOOT GENERAL 3V AP/LAT/OBL RIGHT RADEX FOOT COMPLETE MINIMUM 3 VIEWS Omar Cruz [address] [place] [address] [place] [address] Referral ID Status Reason Start Date Expiration Date V isits Requested Visits Authorized [id number] Closed Auto-Generate d Referral 12/17/2022 12/17/2023 1 1 [facility] for referral (narrative)* Diagnostic Procedure Only (Routine) - Closed Specialty Diagnoses / Procedures Referred By Contac t Referred To Contact XR IMAGING Diagnoses Closed displaced fracture of fifth metatarsal bone of right foot, initial encounter Procedures XR FOOT GENERAL 3V AP/LAT/OBL RIGHT RADEX FOOT COMPLETE MINIMUM 3 VIEWS Omar Cruz [address] [place] [address] [place] [address] Referral ID Status Reason Start Date Expiration Date V isits Requested Visits Authorized [id number] Closed Auto-Generate d Referral 11/17/2022 12/17/2023 1 1 [facility] for referral (narrative)* Diagnostic Procedure Only (Urgent) - Closed Specialty Diagnoses / Procedures Referred By Contac t Referred To Contact XR IMAGING Diagnoses Foot pain, right Procedures XR FOOT GENERAL 3V AP/LAT/OBL RIGHT RADEX FOOT COMPLETE MINIMUM 3 VIEWS Jacinda Enriquez APRN.CNP [address] [place] [address] [place] [address] Referral ID Status Reason Start Date Expiration Date V isits Requested Visits Authorized [id number] Closed Auto-Generate d Referral 11/08/2022 12/08/2023 1 1 Electronically signed by Jacinda Enriquez ROAD ROLLER OPERATOR [employer].SPORTS TEAM MANAGER at 11/08/2022 11:04 AM EDT [facility] for referral (narrative)* Diagnostic Procedure Only (Routine) - Closed Specialty Diagnoses / Procedures Referred By Contac t Referred To Contact XR IMAGING Diagnoses Hip pain, unspecified laterality Procedures XR HIP BILATERAL 5V PEL/AP/LAT EACH HIP RADEX HIPS BILATERAL WITH PELVIS MINIMUM 5 VIEWS Amos Floyd MD [address] [place] [address] [place] [address] Referral ID Status Reason Start Date Expiration Date V isits Requested Visits Authorized [id number] Closed Auto-Generate d Referral 10/26/2022 11/25/2023 1 1 [facility] for referral (narrative)* Diagnostic Procedure Only (Routine) - New Request Specialty Diagnoses / Procedures Referred By Contac t Referred To Contact XR IMAGING Diagnoses Age-related osteoporosis with current pathological fracture with routine healing Procedures DXA-AXIAL SKELETON DXA BONE DENSITY STUDY 1/> SITES AXIAL SKAmos Quick MD [address] [place] [address] [place] [address] Referral ID Status Reason Start Date Expiration Date Visits Requested Visits Authorized [id number] New Request Auto-Generat ed Referral 12/29/2024 1 1 [facility] for referral (narrative)No reason for referral information [facility] N[facility] Diagnostic Procedure Only (Routine) - Closed Specialty Diagnoses / Procedures Referred By Contac t Referred To Contact BR IMAGING Diagnoses Encounter for screening mammogram for malignant neoplasm of breast Procedures TAE SCREENING SCREENING MAMMOGRAPHY BI 2-VIEW BREAST INC CAD Amos Floyd MD [address] [place] [address] Br Imaging [address] [facility] [address] Referral ID Status Reason Start Date Expiration Date V isits Requested Visits Authorized [id number] Closed Auto-Generate d Referral 12/06/2021 01/05/2023 1 1 [facility] for visit Narrative* Diagnostic Procedure Only (Routine) - Closed Specialty Diagnoses / Procedures Referred By Contac t Referred To Contact XR IMAGING Diagnoses Closed displaced fracture of fifth metatarsal bone of right foot, initial encounter Procedures XR FOOT GENERAL 3V AP/LAT/OBL RIGHT RADEX FOOT COMPLETE MINIMUM [address] [place] [address] [place] [address] Referral ID Status Reason Start Date Expiration Date V isits Requested Visits Authorized [id number] Closed Auto-Generate d Referral 12/17/2022 12/17/2023 1 1 [facility] for visit Narrative* Diagnostic Procedure Only (Routine) - Closed Specialty Diagnoses / Procedures Referred By Contac t Referred To Contact XR IMAGING Diagnoses Closed displaced fracture of fifth metatarsal bone of right foot, initial encounter Procedures XR FOOT GENERAL 3V AP/LAT/OBL RIGHT RADEX FOOT COMPLETE MINIMUM 3 VIEWS TestOmar suazo [address] [place] [address] [place] [address] Referral ID Status Reason Start Date Expiration Date V isits Requested Visits Authorized [id number] Closed Auto-Generate d Referral 11/17/2022 12/17/2023 1 1 [facility] for visit Narrative* Diagnostic Procedure Only (Routine) - Closed Specialty Diagnoses / Procedures Referred By Contac t Referred To Contact XR IMAGING Diagnoses Closed displaced fracture of fifth metatarsal bone of right foot, initial encounter Procedures XR FOOT GENERAL 3V AP/LAT/OBL RIGHT RADEX FOOT COMPLETE MINIMUM 3 VIEWS Omar Cruz [address] [place] [address] [place] [address] Referral ID Status Reason Start Date Expiration Date V isits Requested Visits Authorized [id number] Closed Auto-Generate d Referral 12/19/2022 01/18/2024 1 1 [facility] for visit Narrative* Diagnostic Procedure Only (Urgent) - Closed Specialty Diagnoses / Procedures Referred By Contac t Referred To Contact XR IMAGING Diagnoses Foot pain, right Procedures XR FOOT GENERAL 3V AP/LAT/OBL RIGHT RADEX FOOT COMPLETE MINIMUM 3 VIEWS Jacinda Enriquez, ROAD ROLLER OPERATOR H[employer] M[employer].SPORTS TEAM MANAGER [address] [place] [address] [place] [address] Referral ID Status Reason Start Date Expiration Date V isits Requested Visits Authorized [id number] Closed Auto-Generate d Referral 11/08/2022 12/08/2023 1 1 [facility] for visit Narrative* Diagnostic Procedure Only (Routine) - Closed Specialty Diagnoses / Procedures Referred By Contac t Referred To Contact XR IMAGING Diagnoses Hip pain, unspecified laterality Procedures XR HIP BILATERAL 5V PEL/AP/LAT EACH HIP RADEX HIPS BILATERAL WITH PELVIS MINIMUM 5 VIEWS Amos Floyd MD [address] [place] [address] [place] [address] Referral ID Status Reason Start Date Expiration Date V isits Requested Visits Authorized [id number] Closed Auto-Generate d Referral 10/26/2022 11/25/2023 1 1 [facility] Summary Purpose Family History Relationship Condition Age at Onset Recorded Date/T rupa father Cerebrovascular accident (CVA) Unknown mother Myocardial infarction 87 Relationship Condition Age at Onset Recorded Date/T rupa Not Specified History of deep venous thrombosis Unknow n detention current us e of anticoagulant therapy Unknown father Cerebrovascular accident (CVA) Unknown mother Myocardial infarction 87 Advance Directives Documents on File Type Date Recorded Patient It Senior Analyst Expl anation Advance Directive(s) 06/15/2023 1:23 PM Date Activated Date Inactivated Comments 06/09/2023 9:18 AM 06/13/2023 5:43 PM Question Answer Comments DNR Order Discussed With: Patient Advance Directive Response Recorded Date/ Time Advance Directives Yes March 24, 2016 12:54pm Living Will Yes April 23, 2020 1:27am Power of Track Surfacing Machine Operator Yes April 23 1:27am Documents on File Type Date Recorded Patient It Senior Analyst Expl anation Advance Directive(s) Advance Directive(s) 03/25/2016 3:29 PM Advance Directive(s) 03/22/2016 8:29 AM Advance Directive(s) 09/14/2015 10:37 AM Advance Directive Response Recorded Date/ Time Name of Medical Power of Track Surfacing Machine Operator Echo Bravo November 17, 2021 1:25am Advance Directives Yes March 24, 2016 12:54pm Living Will Yes November 17, 2021 1:25am Power of Track Surfacing Machine Operator Yes October 1:25am Advance Directive Response Recorded Date/ Time Name of Medical Power of Track Surfacing Machine Operator Echo Bravo November 17, 2021 12:25am Advance Directives Yes March 24, 2016 11:54am Living Will Yes November 17, 2021 12:25am Power of Track Surfacing Machine Operator Yes October 12:25am Advance Directive Response Recorded Date/ Time Advance Directives Yes March 24, 2016 11:54am Living Will Yes November 17, 2021 12:25am Power of Track Surfacing Machine Operator Yes October 12:25am Advance Directive Response Recorded Date/ Time Advance Directives Yes March 24, 2016 12:54pm Living Will Yes November 17, 2021 1:25am Power of Track Surfacing Machine Operator Yes October 1:25am Advance Directive Response Recorded Date/ Time Advance Directives Yes March 24, 2016 12:54pm Living Will No May 15, 2023 3:08pm Power of Track Surfacing Machine Operator No May 14 3:08pm Advance Directive Response Recorded Date/ Time Name of Medical Power of Track Surfacing Machine Operator souleymane daughter May 23, 2023 8:15pm Advance Directives Yes March 24, 2016 12:54pm Living Will Yes May 23, 2023 8:15pm Power of Track Surfacing Machine Operator Yes May 22 8:15pm Documents on File Type Date Recorded Patient It Senior Analyst Expl anation Healthcare Power of Atty 05/12/2020 Living Will 05/12/2020 Latest Code Status on File Code Status Date Activated Date Inactivated Comments DNR and No Intubation and No ICU 05/24/2023 2:11 AM Question Answer Comments Plan of Care: Code Status Discussi on Completed Decision Maker: Patient Date Activated Date Inactivated Comments 06/09/2023 9:18 AM Documents on File Type Date Recorded Patient It Senior Analyst Expl anation Advance Directive(s) 06/15/2023 1:23 PM Date Activated Date Inactivated Comments 06/09/2023 9:18 AM 06/13/2023 5:43 PM Question Answer Comments DNR Order Discussed With: Patient Advance Directive Response Recorded Date/ Time Living Will Yes November 17, 2021 1:25am Do you have a Healthcare Power of Track Surfacing Machine Operator? Yes November 17, 2021 1:25am Living Will Yes March 23 12:17am Do you have a Healthcare Power of Track Surfacing Machine Operator? Yes March 23, 2024 12:17am Living Will Yes January 19 11:49pm Do you have a Healthcare Power of Track Surfacing Machine Operator? Yes January 20, 2024 11:49pm Advance Directives Yes March 24, 2016 12:54pm Advance Directive Response Recorded Date/ Time Living Will Yes November 17, 2021 1:25am Do you have a Healthcare Power of Track Surfacing Machine Operator? Yes November 17, 2021 1:25am Living Will Yes March 23 12:17am Do you have a Healthcare Power of Track Surfacing Machine Operator? Yes March 23, 2024 12:17am Living Will Yes May 23, 2023 8:15pm Do you have a Healthcare Power of Track Surfacing Machine Operator? Yes May 23, 2023 8:15pm Living Will Yes January 19 11:49pm Do you have a Healthcare Power of Track Surfacing Machine Operator? Yes January 20, 2024 11:49pm Living Will Yes May 20, 2024 9:59pm Do you have a Healthcare Power of Track Surfacing Machine Operator? Yes May 20, 2024 9:59pm Advance Directives Yes March 24, 2016 12:54pm Advance Directive Response Recorded Date/ Time Living Will Yes November 17, 2021 1:25am Do you have a Healthcare Power of Track Surfacing Machine Operator? Yes November 17, 2021 1:25am Living Will Yes March 23 12:17am Do you have a Healthcare Power of Track Surfacing Machine Operator? Yes March 23, 2024 12:17am Living Will Yes June 19, 2024 8:48pm Do you have a Healthcare Power of Track Surfacing Machine Operator? Yes June 19, 2024 8:48pm Living Will Yes May 23, 2023 8:15pm Do you have a Healthcare Power of Track Surfacing Machine Operator? Yes May 23, 2023 8:15pm Living Will Yes January 19 11:49pm Do you have a Healthcare Power of Track Surfacing Machine Operator? Yes January 20, 2024 11:49pm Living Will Yes May 20, 2024 9:59pm Do you have a Healthcare Power of Track Surfacing Machine Operator? Yes May 20, 2024 9:59pm Advance Directives Yes March 24, 2016 12:54pm Advance Directive Response Recorded Date/ Time Living Will Yes November 17, 2021 1:25am Do you have a Healthcare Power of Track Surfacing Machine Operator? Yes November 17, 2021 1:25am Living Will Yes March 23 12:17am Do you have a Healthcare Power of Track Surfacing Machine Operator? Yes March 23, 2024 12:17am Living Will Yes June 19, 2024 8:48pm Do you have a Healthcare Power of Track Surfacing Machine Operator? Yes June 19, 2024 8:48pm Living Will Yes May 23, 2023 8:15pm Do you have a Healthcare Power of Track Surfacing Machine Operator? Yes May 23, 2023 8:15pm Living Will Yes May 20, 2024 9:59pm Do you have a Healthcare Power of Track Surfacing Machine Operator? Yes May 20, 2024 9:59pm Advance Directives Yes March 24, 2016 12:54pm Advance Directive Response Recorded Date/ Time Living Will Yes November 17, 2021 1:25am Do you have a Healthcare Pow er of Track Surfacing Machine Operator? Yes November 17, 2021 1:25am Living Will Yes March 23 12:17am Do you have a Healthcare Pow er of Track Surfacing Machine Operator? Yes March 23, 2024 12:17am Living Will Yes June 19, 2024 8:48pm Do you have a Healthcare Pow er of Track Surfacing Machine Operator? Yes June 19, 2024 8:48pm Living Will Yes May 23, 2023 8:15pm Do you have a Healthcare Pow er of Track Surfacing Machine Operator? Yes May 23, 2023 8:15pm Living Will Yes May 20, 2024 9:59pm Do you have a Healthcare Pow er of Track Surfacing Machine Operator? Yes May 20, 2024 9:59pm Advance Directives on File Yes August 05, 2024 7:22am Living Will Yes August 05, 2024 7:22am Do you have a Healthcare Pow er of Track Surfacing Machine Operator? Yes August 05, 2024 7:22am Name of Medical Power of Track Surfacing Machine Operator daughter bisi simpson August 05, 2024 7:22am Advance Directives Yes August 05 7:22am Advance Directive Response Recorded Date/ Time Living Will Yes November 17, 2021 1:25am Do you have a Healthcare Pow er of Track Surfacing Machine Operator? Yes November 17, 2021 1:25am Living Will Yes March 23 12:17am Do you have a Healthcare Pow er of Track Surfacing Machine Operator? Yes March 23, 2024 12:17am Living Will Yes June 19, 2024 8:48pm Do you have a Healthcare Pow er of Track Surfacing Machine Operator? Yes June 19, 2024 8:48pm Living Will Yes May 23, 2023 8:15pm Do you have a Healthcare Pow er of Track Surfacing Machine Operator? Yes May 23, 2023 8:15pm Living Will Yes May 20, 2024 9:59pm Do you have a Healthcare Pow er of Track Surfacing Machine Operator? Yes May 20, 2024 9:59pm Advance Directives on File Yes August 05, 2024 7:22am Living Will Yes August 05, 2024 7:22am Do you have a Healthcare Pow er of Track Surfacing Machine Operator? Yes August 05, 2024 7:22am Name of Medical Power of Track Surfacing Machine Operator daughter bisi simpson August 05, 2024 7:22am Advance Directives Yes August 05 7:22am Do you have a Healthcare Pow er of Track Surfacing Machine Operator? Yes August 07, 2024 4:00pm Hospital Course Note Send Summary: Discharge Summ christ Providers: Provider RoleProvider Name Amos Monge AttendingTaBaldo mccallum, Alvin Encarnacion, Di ConsultingWenceslao, Leigh Cain, Vicky Acharya, Amos Rosales Note Recipients: Amos Floyd MD - [id number] [] Discharge: Summary: Admission Date: .01-May-2020 20:47:00 Discharge Date: 08-May-2020 Attending Physician at Discharge: Baldo South Admission Reason: HPI: LINDA PERALTA is [...] decision made to (more content not included)... Chief Complaint and Reason for Visit Chief Complaint S/O INR S/O INR S/O INR 2-3 MO F/U CP *ESTUARDO* CP *ESTUARDO* S/O INR Reason for Visit Chest pain Essential (primary) hypertension History of pulmonary embolism Hyperlipidemia Chief Complaint S/O INR S/O INR 2-3 MO F/U CP *ESTUARDO* CP *ESTUARDO* S/O INR S/O INR PROLIA/60MG Reason for Visit Chest pain Essential (primary) hypertension History of pulmonary embolism Hyperlipidemia Chief Complaint S/O INR 2-3 MO F/U CP *ESTUARDO* CP *ESTUARDO* S/O INR S/O INR PROLIA/60MG S/O INR 3 M FU Reason for Visit Chest pain Essential (primary) hypertension History of pulmonary embolism Hyperlipidemia Essential (primary) hypertension History of pulmonary embolism Hyperlipidemia Chief Complaint CP *ESTUARDO* CP *ESTUARDO* S/O INR S/O INR PROLIA/60MG S/O INR 3 M FU S/O INR Reason for Visit Essential (primary) hypertension History of pulmonary embolism Hyperlipidemia Chief Complaint S/O INR PROLIA/60MG S/O INR 3 M FU S/O INR S/O INR Reason for Visit Essential (primary) hypertension History of pulmonary embolism Hyperlipidemia Chief Complaint S/O INR 3 M FU S/O INR S/O INR S/O INR Reason for Visit Essential (primary) hypertension History of pulmonary embolism Hyperlipidemia Chief Complaint S/O INR S/O INR S/O INR S/O INR HYPOTENSION, ANGELA Reason for Visit ANGELA (acute kidney in jury) Elevated troponin Hypotension Moris disease 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 Chief Complaint S/O INR S/O INR S/O INR S/O INR HYPOTENSION, ANGELA HYPOTENSION, ANGELA HYPOTENSION, ANGELA HYPOTENSION, ANGELA Reason for Visit [place]is disease ANGELA (acute kidney injury) Elevated troponin Hypotension 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, stage 3 detention (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 Chief Complaint S/O INR S/O INR S/O INR HYPOTENSION, ANGELA HYPOTENSION, ANGELA HYPOTENSION, ANGELA HYPOTENSION, ANGELA PROLIA/60MG Reason for Visit ANGELA (acute kidney in jury) Elevated troponin Hypotension Chief Complaint S/O INR S/O INR HYPOTENSION, ANGELA HYPOTENSION, ANGELA HYPOTENSION, ANGELA HYPOTENSION, ANGELA PROLIA/60MG 1 Y FU/Osteo S/p hospital E ORDER Reason for Visit [place] disease ANGELA (acute kidney injury) Elevated troponin Hypotension Moris disease Osteoporosis Essential (primary) hypertension History of pulmonary embolism Hyperlipidemia History of non-ST elevation myocardial infarction (NSTEMI) Chief Complaint S/O INR HYPOTENSION, ANGELA HYPOTENSION, ANGELA HYPOTENSION, ANGELA HYPOTENSION, ANGELA PROLIA/60MG 1 Y FU/Osteo S/p hospital E ORDER 6 wk fu EORDERS-3 ORDERING DRS E ORDER Reason for Visit [place] disease ANGELA (acute kidney injury) Elevated troponin Hypotension Moris disease Osteoporosis Essential (primary) hypertension History of pulmonary embolism Hyperlipidemia History of non-ST elevation myocardial infarction (NSTEMI) Essential (primary) hypertension History of pulmonary embolism Hyperlipidemia History of non-ST elevation myocardial infarction (NSTEMI) Chief Complaint PROLIA/60MG 1 Y FU/Osteo S/p hospital E ORDER 6 wk fu EORDERS-3 ORDERING DRS E ORDER E ORDER Reason for Visit [place] disease Osteoporosis Essential (primary) hypertension History of pulmonary embolism Hyperlipidemia History of non-ST elevation myocardial infarction (NSTEMI) Essential (primary) hypertension History of pulmonary embolism Hyperlipidemia History of non-ST elevation myocardial infarction (NSTEMI) Chief Complaint E ORDER 6 wk fu EORDERS-3 ORDERING DRS E ORDER E ORDER E ORDER Reason for Visit Essential (primary) hypertension History of pulmonary embolism Hyperlipidemia History of non-ST elevation myocardial infarction (NSTEMI) Chief Complaint 6 wk fu EORDERS-3 ORDERING DRS E ORDER E ORDER E ORDER E ORDER Reason for Visit Essential (primary) hypertension History of pulmonary embolism Hyperlipidemia History of non-ST elevation myocardial infarction (NSTEMI) Chief Complaint E ORDER E ORDER E ORDER E ORDER PROLIA/60MG Chief Complaint E ORDER E ORDER PROLIA/60MG E ORDER Chief Complaint E ORDER PROLIA/60MG E ORDER 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, stage 3b 1 Y FU E ORDER Reason for Visit Aortic stenosis MVP (mitral valve prolapse) 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, stage 3 Essential (primary) hypertension History of pulmonary embolism Hyperlipidemia History of non-ST elevation myocardial infarction (NSTEMI) Chief Complaint PROLIA/60MG E ORDER 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, stage 3b 1 Y FU E ORDER EORDER/INR Reason for Visit Aortic stenosis MVP (mitral valve prolapse) 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, stage 3 Essential (primary) hypertension History of pulmonary embolism Hyperlipidemia History of non-ST elevation myocardial infarction (NSTEMI) Chief Complaint E ORDER 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, stage 3b 1 Y FU E ORDER EORDER/INR EORDER/INR Reason for Visit Aortic stenosis MVP (mitral valve prolapse) 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, stage 3 Essential (primary) hypertension History of pulmonary embolism Hyperlipidemia History of non-ST elevation myocardial infarction (NSTEMI) Chief Complaint Chronic kidney disea se, stage 3b 1 Y FU E ORDER EORDER/INR EORDER/INR EORDER/INR Reason for Visit Aortic stenosis MVP (mitral valve prolapse) 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, stage 3 Essential (primary) hypertension History of pulmonary embolism Hyperlipidemia History of non-ST elevation myocardial infarction (NSTEMI) Chief Complaint EORDER/INR EORDER/INR EORDER/INR 1 Y FU PROLIA/60MG EORDER/INR Reason for Visit [place]is disease Osteoporosis Chief Complaint EORDER/INR EORDER/INR 1 Y FU PROLIA/60MG EORDER/INR EORDER/INR Reason for Visit [place] disease Osteoporosis Chief Complaint EORDER/INR 1 Y FU PROLIA/60MG EORDER/INR EORDER/INR EORDER/INR Reason for Visit [place] disease Osteoporosis Chief Complaint 1 Y FU PROLIA/60MG EORDER/INR EORDER/INR EORDER/INR EORDER/INR 6 M FU Reason for Visit [place] disease Osteoporosis Aortic stenosis Dizziness MVP (mitral valve prolapse) 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, stage 3 Essential (primary) hypertension History of pulmonary embolism Hyperlipidemia History of non-ST elevation myocardial infarction (NSTEMI) Chief Complaint EORDER/INR EORDER/INR EORDER/INR 6 M FU INR Reason for Visit Aortic stenosis Dizziness MVP (mitral valve prolapse) 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, stage 3 Essential (primary) hypertension History of pulmonary embolism Hyperlipidemia History of non-ST elevation myocardial infarction (NSTEMI) Chief Complaint EORDER/INR EORDER/INR EORDER/INR 6 M FU Nonrheumatic mitral (valve) prolapse INR Reason for Visit Aortic stenosis Dizziness MVP (mitral valve prolapse) 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, stage 3 Essential (primary) hypertension History of pulmonary embolism Hyperlipidemia History of non-ST elevation myocardial infarction (NSTEMI) Chief Complaint EORDER/INR EORDER/INR 6 M FU Nonrheumatic mitral (valve) prolapse INR ABN LABS Reason for Visit Aortic stenosis Dizziness MVP (mitral valve prolapse) 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, stage 3 Essential (primary) hypertension History of pulmonary embolism Hyperlipidemia History of non-ST elevation myocardial infarction (NSTEMI) Chief Complaint EORDER/INR EORDER/INR 6 M FU Nonrheumatic mitral (valve) prolapse INR ABN LABS ABNL LABS Reason for Visit Aortic stenosis Dizziness MVP (mitral valve prolapse) 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, stage 3 Essential (primary) hypertension History of pulmonary embolism Hyperlipidemia History of non-ST elevation myocardial infarction (NSTEMI) Chief Complaint EORDER/INR EORDER/INR 6 M FU Nonrheumatic mitral (valve) prolapse INR ABN LABS ABNL LABS INR hydration Reason for Visit Aortic stenosis Dizziness MVP (mitral valve prolapse) 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, stage 3 Essential (primary) hypertension History of pulmonary embolism Hyperlipidemia History of non-ST elevation myocardial infarction (NSTEMI) Chief Complaint EORDER/INR 6 M FU Nonrheumatic mitral (valve) prolapse INR ABN LABS ABNL LABS hydration INR Reason for Visit Aortic stenosis Dizziness MVP (mitral valve prolapse) 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, stage 3 Essential (primary) hypertension History of pulmonary embolism Hyperlipidemia History of non-ST elevation myocardial infarction (NSTEMI) Chief Complaint Admit Date INR ALSO SEPERATE ORDER February 222024 1:48pm INR ALSO SEPERATE ORDER April 2:09pm 1 Y FU April 29, 2024 10: 53am Reason for Visit Admit Date Aortic stenosis April 29, 2024 10: 53am detention (current) use of anticoagulant s April 29, 2024 10:53am MVP (mitral valve prolapse) April 29, 2024 10:53am 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, stage 3 April 292024 10:53am Essential (primary) hypertension April 202024 10:53am Hyperlipidemia April 29, 2024 10: 53am History of non-ST elevation myocardial i nfarction (NSTEMI) April 29, 2024 10:53am Chief Complaint Admit Date INR ALSO SEPERATE ORDER February 222024 1:48pm INR ALSO SEPERATE ORDER April 2:09pm 1 Y FU April 29, 2024 10: 53am INR ALSO SEPERATE ORDER May 1:06pm AVS, MVP May 24, 2024 1:08 pm Chief Complaint Admit Date INR ALSO SEPERATE ORDER February 222024 1:48pm INR ALSO SEPERATE ORDER April 2:09pm 1 Y FU April 29, 2024 10: 53am INR ALSO SEPERATE ORDER May 1:06pm AVS, MVP May 24, 2024 1:08 pm INR June 21, 2024 9:21am SEVERE AORTIC STENOSIS July 03, 2024 10 :47am Chief Complaint Admit Date INR ALSO SEPERATE ORDER April 2:09pm 1 Y FU April 29, 2024 10: 53am INR ALSO SEPERATE ORDER May 1:06pm AVS, MVP May 24, 2024 1:08 pm INR June 21, 2024 9:21am SEVERE AORTIC STENOSIS July 03, 2024 10 :47am Chief Complaint Admit Date INR ALSO SEPERATE ORDER April 2:09pm 1 Y FU April 29, 2024 10: 53am INR ALSO SEPERATE ORDER May 1:06pm AVS, MVP May 24, 2024 1:08 pm INR June 21, 2024 9:21am SEVERE AORTIC STENOSIS July 03, 2024 10 :47am UPDATE H & P July 23, 2024 8:33a m Reason for Visit Admit Date Aortic stenosis April 29, 2024 10: 53am detention (current) use of anticoagulant s April 29, 2024 10:53am MVP (mitral valve prolapse) April 29, 2024 10:53am 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, stage 3 April 292024 10:53am Essential (primary) hypertension April 202024 10:53am Hyperlipidemia April 29, 2024 10: 53am History of non-ST elevation myocardial i nfarction (NSTEMI) April 29, 2024 10:53am Severe aortic stenosis July 23, 2024 8: 33am Chief Complaint Admit Date INR ALSO SEPERATE ORDER April 2:09pm 1 Y FU April 29, 2024 10: 53am INR ALSO SEPERATE ORDER May 1:06pm AVS, MVP May 24, 2024 1:08 pm INR June 21, 2024 9:21am SEVERE AORTIC STENOSIS July 03, 2024 10 :47am UPDATE H & P July 23, 2024 8:33a m Nonrheumatic aortic (valve) stenosis Silvio e 2024 6:48am Reason for Visit Admit Date Aortic stenosis April 29, 2024 10: 53am 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, 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 10:53am MVP (mitral valve prolapse) April 29, 2024 10:53am 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, stage 3 April 292024 10:53am Essential (primary) hypertension April 202024 10:53am Hyperlipidemia April 29, 2024 10: 53am History of non-ST elevation myocardial i nfarction (NSTEMI) April 29, 2024 10:53am Aortic stenosis July 23, 2024 8:33a m 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 23, 2024 8:33am MVP (mitral valve prolapse) July 23 8:33am 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, stage 3 July 8:33am Essential (primary) hypertension July 8:33am Hyperlipidemia July 23, 2024 8:33a m History of non-ST elevation myocardial i nfarction (NSTEMI) July 23, 2024 8:33am Chief Complaint Admit Date INR ALSO SEPERATE ORDER April 2:09pm 1 Y FU April 29, 2024 10: 53am INR ALSO SEPERATE ORDER May 1:06pm AVS, MVP May 24, 2024 1:08 pm INR June 21, 2024 9:21am SEVERE AORTIC STENOSIS July 03, 2024 10 :47am UPDATE H & P July 23, 2024 8:33a m Nonrheumatic aortic (valve) stenosis Silvio 2024 6:48am UTI, SEPSIS, HYPOTENSION WITH ORTHOSTATI C August 07, 2024 8:16pm Reason for Visit Admit Date Aortic stenosis April 29, 2024 10: 53am detention (current) use of anticoagulant s April 29, 2024 10:53am MVP (mitral valve prolapse) April 29, 2024 10:53am 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, stage 3 April 292024 10:53am Essential (primary) hypertension April 202024 10:53am Hyperlipidemia April 29, 2024 10: 53am History of non-ST elevation myocardial i nfarction (NSTEMI) April 29, 2024 10:53am Aortic stenosis July 23, 2024 8:33a m 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 23, 2024 8:33am MVP (mitral valve prolapse) July 23 8:33am 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, stage 3 July 8:33am Essential (primary) hypertension Pat 3r d, 2025 8:33am Hyperlipidemia July 23, 2024 8:33a m History of non-ST elevation myocardial i nfarction (NSTEMI) July 23, 2024 8:33am Acute cystitis without hematuria August 072024 8:16pm Acute hypotension August 07, 2024 8:16 pm 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, 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 pm Aortic stenosis August 07, 2024 8:16 pm Aortic stenosis, severe August 07, 2024 8:16pm Complicated urinary tract infection August 07, 2024 8:16pm Dark stools August 07, 2024 8:16 pm Dehydration August 07, 2024 8:16 pm Elevated troponin August 07, 2024 8:16 pm Leukocytosis August 07, 2024 8:16 pm 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 August 07, 2024 8:16pm Metabolic acidosis August 07, 2024 8:16 pm MVP (mitral valve prolapse) August 07 8:16pm Overweight (BMI 25.0-29.9) August 07 8:16pm Sepsis August 07, 2024 8:16 pm 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, stage 3 July 8:16pm Health Concerns Infection Onset Date Last Indicated [...] HIGH COMPLEX 45 MINS Amos Floyd MD [address] [place] [address] [facility] [address] [place] [address] Referral ID Status Reason Start Date Expiration Date Visits Requested Visits Authorized [id number] Authorized Auto-Generat ed Referral 10/26/2022 02/19/2023 1 1 Specialty Diagnoses / Procedures Referred By Contac t Referred To Contact XR IMAGING Diagnoses Hip pain, unspecified laterality Procedures XR HIP BILATERAL 5V PEL/AP/LAT EACH HIP RADEX HIPS BILATERAL WITH PELVIS MINIMUM 5 VIEWS Amos Floyd MD [address] [place] [address] [place] [address] Referral ID Status Reason Start Date Expiration Date V isits Requested Visits Authorized [id number] Closed Auto-Generate d Referral 10/26/2022 11/25/2023 1 1 Specialty Diagnoses / Procedures Referred By Contac t Referred To Contact [facility] Diagnoses Pain of left hip Procedures PT REHAB FOLLOW UP ORDER THERAPEUTIC EXERCISES RE, EA 15 MIN. Pt [facility] [address] [place] [address] [facility] [address] [place] [address] Referral ID Status Reason Start Date Expiration Date Visits Requested Visits Authorized [id number] Pending Review PCP Requested Referral Auto-Generate d Referral 11/01/2022 01/30/2023 1 1 Specialty Diagnoses / Procedures Referred By Contac t Referred To Contact Podiatry Diagnoses Foot pain, right Procedures CONSULT TO PODIATRY OFFICE/OUTPATIENT [facility] 60-74 MINUTES Jacinda Enriquez APRN.SPORTS TEAM MANAGER [address] [place] [address] Referral ID Status Reason Start Date Expiration Date Visits Requested Visits Authorized [id number] Authorized PCP Requested Referral 11/08/2022 11/08/2023 1 1 Specialty Diagnoses / Procedures Referred By Contac t Referred To Contact XR IMAGING Diagnoses Foot pain, right Procedures XR FOOT GENERAL 3V AP/LAT/OBL RIGHT RADEX FOOT COMPLETE MINIMUM 3 VIEWS Jacinda Enriquez APRN.SPORTS TEAM MANAGER [address] [place] [address] [place] [address] Referral ID Status Reason Start Date Expiration Date V isits Requested Visits Authorized [id number] Closed Auto-Generate d Referral 11/08/2022 12/08/2023 1 1 Specialty Diagnoses / Procedures Referred By Contac t Referred To Contact [facility] Diagnoses Physical deconditioning Muscle weakness Gait abnormality Procedures CONSULT TO PHYSICAL THERAPY PHYSICAL THERAPY EVALUATION HIGH COMPLEX 45 MINS Rocio Elizalde, ROAD ROLLER OPERATOR [employer].SPORTS TEAM MANAGER [address] [place] [address] [facility] [address] [place] [address] Referral ID Status Reason Start Date Expiration Date Visits Requested Visits Authorized [id number] Pending Review Auto-Generat ed Referral 05/31/2023 05/30/2024 1 1 Specialty Diagnoses / Procedures Referred By Contac t Referred To Contact CT IMAGING Diagnoses Nodule of lower lobe of right lung Procedures CT CHEST WO IVCON DIAGNOSTIC COMPUTED TOMOGRAPHY THORAX W/O Amos Bill MD [address] [place] [address] [place] [address] Referral ID Status Reason Start Date Expiration Date Visits Requested Visits Authorized [id number] New Request Auto-Generat ed Referral 02/13/2025 1 1 Additional Source Comments INFORMATION SOURCE (unrecogn ized section and content) DATE CREATED AUTHOR 08/15/2017 [facility] DATE CREATED AUTHOR AUTHOR'S ORGANIZ ATION 04/29/2020 [facility] DATE CREATED AUTHOR AUTHOR'S ORGANIZ ATION 05/27/2020 [facility] DATE CREATED AUTHOR AUTHOR'S ORGANIZ ATION 05/25/2023 [facility] DATE CREATED AUTHOR AUTHOR'S ORGANIZ ATION 06/13/2023 [facility] DATE CREATED AUTHOR AUTHOR'S ORGANIZ ATION 06/20/2023 [facility] DATE CREATED AUTHOR AUTHOR'S ORGANIZ ATION 07/25/2024 [facility] DATE CREATED AUTHOR AUTHOR'S ORGANIZ ATION 08/06/2024 [facility] Goals (unrecognized section and content) Goals may be documented in a n alternate sectionGoals may be documented in an alternate sectionGoals may be documented in an alternate sectionGoals may be documented in an alternate sectionGoals may be documented in an alternate sectionGoals may be documented in an alternate sectionGoals may be documented in an alternate sectionGoals may be documented in an alternate sectionGoals may be documented in an alternate sectionGoals may be documented in an alternate sectionGoals may be documented in an alternate sectionGoals may be documented in an alternate sectionGoals may be documented in an alternate sectionGoals may be documented in an alternate sectionGoals may be documented in an alternate sectionGoals may be documented in an alternate sectionGoals may be documented in an alternate sectionGoals may be documented in an alternate sectionGoals may be documented in an alternate sectionGoals may be documented in an alternate sectionGoals may be documented in an alternate sectionGoals may be documented in an alternate sectionGoals may be documented in an alternate sectionGoals may be documented in an alternate sectionGoals may be documented in an alternate sectionGoals may be documented in an alternate sectionGoals may be documented in an alternate sectionGoals may be documented in an alternate sectionGoals may be documented in an alternate sectionGoals may be documented in an alternate sectionGoals may be documented in an alternate sectionGoals may be documented in an alternate sectionGoals may be documented in an alternate sectionGoals may be documented in an alternate sectionGoals may be documented in an alternate sectionGoals may be documented in an alternate sectionGoals may be documented in an alternate sectionGoals may be documented in an alternate sectionGoals may be documented in an alternate sectionGoals may be documented in an alternate sectionGoals may be documented in an alternate sectionGoals may be documented in an alternate section Source Comments (unrecognize d section and content) In the event this informatio n is protected by the Federal Confidentiality of Alcohol and Drug Abuse Patient Records regulations: The Federal rules restrict any use of the information to criminally investigate or prosecute any alcohol or drug abuse patient.[facility] the event this information is protected by the Federal Confidentiality of Alcohol and Drug Abuse Patient Records regulations: The Federal rules restrict any use of the information to criminally investigate or prosecute any alcohol or drug abuse patient.[facility]In the event this information is protected by the Federal Confidentiality of Alcohol and Drug Abuse Patient Records regulations: The Federal rules restrict any use of the information to criminally investigate or prosecute any alcohol or drug abuse patient.[facility]In the event this information is protected by the Federal Confidentiality of Alcohol and Drug Abuse Patient Records regulations: The Federal rules restrict any use of the information to criminally investigate or prosecute any alcohol or drug abuse patient.[facility]In the event this information is protected by the Federal Confidentiality of Alcohol and Drug Abuse Patient Records regulations: The Federal rules restrict any use of the information to criminally investigate or prosecute any alcohol or drug abuse patient.[facility] HospitalIn the event this information is protected by the Federal Confidentiality of Alcohol and Drug Abuse Patient Records regulations: The Federal rules restrict any use of the information to criminally investigate or prosecute any alcohol or drug abuse patient.[facility] HospitalIn the event this information is protected by the Federal Confidentiality of Alcohol and Drug Abuse Patient Records regulations: The Federal rules restrict any use of the information to criminally investigate or prosecute any alcohol or drug abuse patient.[facility]In the event this information is protected by the Federal Confidentiality of Alcohol and Drug Abuse Patient Records regulations: The Federal rules restrict any use of the information to criminally investigate or prosecute any alcohol or drug abuse patient.[facility] HospitalIn the event this information is protected by the Federal Confidentiality of Alcohol and Drug Abuse Patient Records regulations: The Federal rules restrict any use of the information to criminally investigate or prosecute any alcohol or drug abuse patient.[facility] HospitalIn the event this information is protected by the Federal Confidentiality of Alcohol and Drug Abuse Patient Records regulations: The Federal rules restrict any use of the information to criminally investigate or prosecute any alcohol or drug abuse patient.[facility] HospitalIn the event this information is protected by the Federal Confidentiality of Alcohol and Drug Abuse Patient Records regulations: The Federal rules restrict any use of the information to criminally investigate or prosecute any alcohol or drug abuse patient.[facility] HospitalIn the event this information is protected by the Federal Confidentiality of Alcohol and Drug Abuse Patient Records regulations: The Federal rules restrict any use of the information to criminally investigate or prosecute any alcohol or drug abuse patient.[facility] HospitalIn the event this information is protected by the Federal Confidentiality of Alcohol and Drug Abuse Patient Records regulations: The Federal rules restrict any use of the information to criminally investigate or prosecute any alcohol or drug abuse patient.[facility] HospitalIn the event this information is protected by the Federal Confidentiality of Alcohol and Drug Abuse Patient Records regulations: The Federal rules restrict any use of the information to criminally investigate or prosecute any alcohol or drug abuse patient.[facility] HospitalIn the event this information is protected by the Federal Confidentiality of Alcohol and Drug Abuse Patient Records regulations: The Federal rules restrict any use of the information to criminally investigate or prosecute any alcohol or drug abuse patient.[facility] HospitalIn the event this information is protected by the Federal Confidentiality of Alcohol and Drug Abuse Patient Records regulations: The Federal rules restrict any use of the information to criminally investigate or prosecute any alcohol or drug abuse patient.[facility] HospitalIn the event this information is protected by the Federal Confidentiality of Alcohol and Drug Abuse Patient Records regulations: The Federal rules restrict any use of the information to criminally investigate or prosecute any alcohol or drug abuse patient.[facility] HospitalIn the event this information is protected by the Federal Confidentiality of Alcohol and Drug Abuse Patient Records regulations: The Federal rules restrict any use of the information to criminally investigate or prosecute any alcohol or drug abuse patient.[facility] HospitalIn the event this information is protected by the Federal Confidentiality of Alcohol and Drug Abuse Patient Records regulations: The Federal rules restrict any use of the information to criminally investigate or prosecute any alcohol or drug abuse patient.[facility] HospitalIn the event this information is protected by the Federal Confidentiality of Alcohol and Drug Abuse Patient Records regulations: The Federal rules restrict any use of the information to criminally investigate or prosecute any alcohol or drug abuse patient.[facility] HospitalIn the event this information is protected by the Federal Confidentiality of Alcohol and Drug Abuse Patient Records regulations: The Federal rules restrict any use of the information to criminally investigate or prosecute any alcohol or drug abuse patient.[facility] HospitalIn the event this information is protected by the Federal Confidentiality of Alcohol and Drug Abuse Patient Records regulations: The Federal rules restrict any use of the information to criminally investigate or prosecute any alcohol or drug abuse patient.[facility] HospitalIn the event this information is protected by the Federal Confidentiality of Alcohol and Drug Abuse Patient Records regulations: The Federal rules restrict any use of the information to criminally investigate or prosecute any alcohol or drug abuse patient.[facility] HospitalIn the event this information is protected by the Federal Confidentiality of Alcohol and Drug Abuse Patient Records regulations: The Federal rules restrict any use of the information to criminally investigate or prosecute any alcohol or drug abuse patient.[facility] HospitalIn the event this information is protected by the Federal Confidentiality of Alcohol and Drug Abuse Patient Records regulations: The Federal rules restrict any use of the information to criminally investigate or prosecute any alcohol or drug abuse patient.[facility] HospitalIn the event this information is protected by the Federal Confidentiality of Alcohol and Drug Abuse Patient Records regulations: The Federal rules restrict any use of the information to criminally investigate or prosecute any alcohol or drug abuse patient.[facility] HospitalIn the event this information is protected by the Federal Confidentiality of Alcohol and Drug Abuse Patient Records regulations: The Federal rules restrict any use of the information to criminally investigate or prosecute any alcohol or drug abuse patient.[facility] HospitalIn the event this information is protected by the Federal Confidentiality of Alcohol and Drug Abuse Patient Records regulations: The Federal rules restrict any use of the information to criminally investigate or prosecute any alcohol or drug abuse patient.[facility] HospitalIn the event this information is protected by the Federal Confidentiality of Alcohol and Drug Abuse Patient Records regulations: The Federal rules restrict any use of the information to criminally investigate or prosecute any alcohol or drug abuse patient.[facility] HospitalIn the event this information is protected by the Federal Confidentiality of Alcohol and Drug Abuse Patient Records regulations: The Federal rules restrict any use of the information to criminally investigate or prosecute any alcohol or drug abuse patient.[facility] HospitalIn the event this information is protected by the Federal Confidentiality of Alcohol and Drug Abuse Patient Records regulations: The Federal rules restrict any use of the information to criminally investigate or prosecute any alcohol or drug abuse patient.[facility] HospitalIn the event this information is protected by the Federal Confidentiality of Alcohol and Drug Abuse Patient Records regulations: The Federal rules restrict any use of the information to criminally investigate or prosecute any alcohol or drug abuse patient.[facility] HospitalIn the event this information is protected by the Federal Confidentiality of Alcohol and Drug Abuse Patient Records regulations: The Federal rules restrict any use of the information to criminally investigate or prosecute any alcohol or drug abuse patient.[facility] HospitalIn the event this information is protected by the Federal Confidentiality of Alcohol and Drug Abuse Patient Records regulations: The Federal rules restrict any use of the information to criminally investigate or prosecute any alcohol or drug abuse patient.[facility] HospitalIn the event this information is protected by the Federal Confidentiality of Alcohol and Drug Abuse Patient Records regulations: The Federal rules restrict any use of the information to criminally investigate or prosecute any alcohol or drug abuse patient.[facility] HospitalIn the event this information is protected by the Federal Confidentiality of Alcohol and Drug Abuse Patient Records regulations: The Federal rules restrict any use of the information to criminally investigate or prosecute any alcohol or drug abuse patient.[facility] HospitalIn the event this information is protected by the Federal Confidentiality of Alcohol and Drug Abuse Patient Records regulations: The Federal rules restrict any use of the information to criminally investigate or prosecute any alcohol or drug abuse patient.[facility] HospitalIn the event this information is protected by the Federal Confidentiality of Alcohol and Drug Abuse Patient Records regulations: The Federal rules restrict any use of the information to criminally investigate or prosecute any alcohol or drug abuse patient.[facility] HospitalIn the event this information is protected by the Federal Confidentiality of Alcohol and Drug Abuse Patient Records regulations: The Federal rules restrict any use of the information to criminally investigate or prosecute any alcohol or drug abuse patient.[facility] HospitalIn the event this information is protected by the Federal Confidentiality of Alcohol and Drug Abuse Patient Records regulations: The Federal rules restrict any use of the information to criminally investigate or prosecute any alcohol or drug abuse patient.[facility] HospitalIn the event this information is protected by the Federal Confidentiality of Alcohol and Drug Abuse Patient Records regulations: The Federal rules restrict any use of the information to criminally investigate or prosecute any alcohol or drug abuse patient.[facility] HospitalIn the event this information is protected by the Federal Confidentiality of Alcohol and Drug Abuse Patient Records regulations: The Federal rules restrict any use of the information to criminally investigate or prosecute any alcohol or drug abuse patient.[facility] HospitalIn the event this information is protected by the Federal Confidentiality of Alcohol and Drug Abuse Patient Records regulations: The Federal rules restrict any use of the information to criminally investigate or prosecute any alcohol or drug abuse patient.[facility] HospitalIn the event this information is protected by the Federal Confidentiality of Alcohol and Drug Abuse Patient Records regulations: The Federal rules restrict any use of the information to criminally investigate or prosecute any alcohol or drug abuse patient.[facility] HospitalIn the event this information is protected by the Federal Confidentiality of Alcohol and Drug Abuse Patient Records regulations: The Federal rules restrict any use of the information to criminally investigate or prosecute any alcohol or drug abuse patient.[facility] HospitalIn the event this information is protected by the Federal Confidentiality of Alcohol and Drug Abuse Patient Records regulations: The Federal rules restrict any use of the information to criminally investigate or prosecute any alcohol or drug abuse patient.[facility] HospitalIn the event this information is protected by the Federal Confidentiality of Alcohol and Drug Abuse Patient Records regulations: The Federal rules restrict any use of the information to criminally investigate or prosecute any alcohol or drug abuse patient.[facility] HospitalIn the event this information is protected by the Federal Confidentiality of Alcohol and Drug Abuse Patient Records regulations: The Federal rules restrict any use of the information to criminally investigate or prosecute any alcohol or drug abuse patient.[facility] HospitalIn the event this information is protected by the Federal Confidentiality of Alcohol and Drug Abuse Patient Records regulations: The Federal rules restrict any use of the information to criminally investigate or prosecute any alcohol or drug abuse patient.[facility] HospitalIn the event this information is protected by the Federal Confidentiality of Alcohol and Drug Abuse Patient Records regulations: The Federal rules restrict any use of the information to criminally investigate or prosecute any alcohol or drug abuse patient.[facility] HospitalIn the event this information is protected by the Federal Confidentiality of Alcohol and Drug Abuse Patient Records regulations: The Federal rules restrict any use of the information to criminally investigate or prosecute any alcohol or drug abuse patient.[facility] HospitalIn the event this information is protected by the Federal Confidentiality of Alcohol and Drug Abuse Patient Records regulations: The Federal rules restrict any use of the information to criminally investigate or prosecute any alcohol or drug abuse patient.[facility] HospitalIn the event this information is protected by the Federal Confidentiality of Alcohol and Drug Abuse Patient Records regulations: The Federal rules restrict any use of the information to criminally investigate or prosecute any alcohol or drug abuse patient.[facility] HospitalIn the event this information is protected by the Federal Confidentiality of Alcohol and Drug Abuse Patient Records regulations: The Federal rules restrict any use of the information to criminally investigate or prosecute any alcohol or drug abuse patient.[facility] HospitalIn the event this information is protected by the Federal Confidentiality of Alcohol and Drug Abuse Patient Records regulations: The Federal rules restrict any use of the information to criminally investigate or prosecute any alcohol or drug abuse patient.[facility] HospitalIn the event this information is protected by the Federal Confidentiality of Alcohol and Drug Abuse Patient Records regulations: The Federal rules restrict any use of the information to criminally investigate or prosecute any alcohol or drug abuse patient.[facility] HospitalIn the event this information is protected by the Federal Confidentiality of Alcohol and Drug Abuse Patient Records regulations: The Federal rules restrict any use of the information to criminally investigate or prosecute any alcohol or drug abuse patient.[facility] HospitalIn the event this information is protected by the Federal Confidentiality of Alcohol and Drug Abuse Patient Records regulations: The Federal rules restrict any use of the information to criminally investigate or prosecute any alcohol or drug abuse patient.[facility] HospitalIn the event this information is protected by the Federal Confidentiality of Alcohol and Drug Abuse Patient Records regulations: The Federal rules restrict any use of the information to criminally investigate or prosecute any alcohol or drug abuse patient.[facility] HospitalIn the event this information is protected by the Federal Confidentiality of Alcohol and Drug Abuse Patient Records regulations: The Federal rules restrict any use of the information to criminally investigate or prosecute any alcohol or drug abuse patient.[facility] HospitalIn the event this information is protected by the Federal Confidentiality of Alcohol and Drug Abuse Patient Records regulations: The Federal rules restrict any use of the information to criminally investigate or prosecute any alcohol or drug abuse patient.[facility] HospitalIn the event this information is protected by the Federal Confidentiality of Alcohol and Drug Abuse Patient Records regulations: The Federal rules restrict any use of the information to criminally investigate or prosecute any alcohol or drug abuse patient.[facility] HospitalIn the event this information is protected by the Federal Confidentiality of Alcohol and Drug Abuse Patient Records regulations: The Federal rules restrict any use of the information to criminally investigate or prosecute any alcohol or drug abuse patient.[facility] HospitalIn the event this information is protected by the Federal Confidentiality of Alcohol and Drug Abuse Patient Records regulations: The Federal rules restrict any use of the information to criminally investigate or prosecute any alcohol or drug abuse patient.[facility] HospitalIn the event this information is protected by the Federal Confidentiality of Alcohol and Drug Abuse Patient Records regulations: The Federal rules restrict any use of the information to criminally investigate or prosecute any alcohol or drug abuse patient.[facility] HospitalIn the event this information is protected by the Federal Confidentiality of Alcohol and Drug Abuse Patient Records regulations: The Federal rules restrict any use of the information to criminally investigate or prosecute any alcohol or drug abuse patient.[facility] HospitalIn the event this information is protected by the Federal Confidentiality of Alcohol and Drug Abuse Patient Records regulations: The Federal rules restrict any use of the information to criminally investigate or prosecute any alcohol or drug abuse patient.[facility] HospitalIn the event this information is protected by the Federal Confidentiality of Alcohol and Drug Abuse Patient Records regulations: The Federal rules restrict any use of the information to criminally investigate or prosecute any alcohol or drug abuse patient.[facility] HospitalIn the event this information is protected by the Federal Confidentiality of Alcohol and Drug Abuse Patient Records regulations: The Federal rules restrict any use of the information to criminally investigate or prosecute any alcohol or drug abuse patient.[facility] HospitalIn the event this information is protected by the Federal Confidentiality of Alcohol and Drug Abuse Patient Records regulations: The Federal rules restrict any use of the information to criminally investigate or prosecute any alcohol or drug abuse patient.[facility] HospitalIn the event this information is protected by the Federal Confidentiality of Alcohol and Drug Abuse Patient Records regulations: The Federal rules restrict any use of the information to criminally investigate or prosecute any alcohol or drug abuse patient.[facility] HospitalIn the event this information is protected by the Federal Confidentiality of Alcohol and Drug Abuse Patient Records regulations: The Federal rules restrict any use of the information to criminally investigate or prosecute any alcohol or drug abuse patient.[facility] HospitalIn the event this information is protected by the Federal Confidentiality of Alcohol and Drug Abuse Patient Records regulations: The Federal rules restrict any use of the information to criminally investigate or prosecute any alcohol or drug abuse patient.[facility] HospitalIn the event this information is protected by the Federal Confidentiality of Alcohol and Drug Abuse Patient Records regulations: The Federal rules restrict any use of the information to criminally investigate or prosecute any alcohol or drug abuse patient.[facility] HospitalIn the event this information is protected by the Federal Confidentiality of Alcohol and Drug Abuse Patient Records regulations: The Federal rules restrict any use of the information to criminally investigate or prosecute any alcohol or drug abuse patient.[facility] HospitalIn the event this information is protected by the Federal Confidentiality of Alcohol and Drug Abuse Patient Records regulations: The Federal rules restrict any use of the information to criminally investigate or prosecute any alcohol or drug abuse patient.[facility] HospitalIn the event this information is protected by the Federal Confidentiality of Alcohol and Drug Abuse Patient Records regulations: The Federal rules restrict any use of the information to criminally investigate or prosecute any alcohol or drug abuse patient.[facility] HospitalIn the event this information is protected by the Federal Confidentiality of Alcohol and Drug Abuse Patient Records regulations: The Federal rules restrict any use of the information to criminally investigate or prosecute any alcohol or drug abuse patient.[facility] HospitalIn the event this information is protected by the Federal Confidentiality of Alcohol and Drug Abuse Patient Records regulations: The Federal rules restrict any use of the information to criminally investigate or prosecute any alcohol or drug abuse patient.[facility] HospitalIn the event this information is protected by the Federal Confidentiality of Alcohol and Drug Abuse Patient Records regulations: The Federal rules restrict any use of the information to criminally investigate or prosecute any alcohol or drug abuse patient.[facility] HospitalIn the event this information is protected by the Federal Confidentiality of Alcohol and Drug Abuse Patient Records regulations: The Federal rules restrict any use of the information to criminally investigate or prosecute any alcohol or drug abuse patient.[facility] HospitalIn the event this information is protected by the Federal Confidentiality of Alcohol and Drug Abuse Patient Records regulations: The Federal rules restrict any use of the information to criminally investigate or prosecute any alcohol or drug abuse patient.[facility] HospitalIn the event this information is protected by the Federal Confidentiality of Alcohol and Drug Abuse Patient Records regulations: The Federal rules restrict any use of the information to criminally investigate or prosecute any alcohol or drug abuse patient.[facility] HospitalIn the event this information is protected by the Federal Confidentiality of Alcohol and Drug Abuse Patient Records regulations: The Federal rules restrict any use of the information to criminally investigate or prosecute any alcohol or drug abuse patient.[facility] HospitalIn the event this information is protected by the Federal Confidentiality of Alcohol and Drug Abuse Patient Records regulations: The Federal rules restrict any use of the information to criminally investigate or prosecute any alcohol or drug abuse patient.[facility] HospitalIn the event this information is protected by the Federal Confidentiality of Alcohol and Drug Abuse Patient Records regulations: The Federal rules restrict any use of the information to criminally investigate or prosecute any alcohol or drug abuse patient.[facility] HospitalIn the event this information is protected by the Federal Confidentiality of Alcohol and Drug Abuse Patient Records regulations: The Federal rules restrict any use of the information to criminally investigate or prosecute any alcohol or drug abuse patient.[facility] HospitalIn the event this information is protected by the Federal Confidentiality of Alcohol and Drug Abuse Patient Records regulations: The Federal rules restrict any use of the information to criminally investigate or prosecute any alcohol or drug abuse patient.[facility] HospitalIn the event this information is protected by the Federal Confidentiality of Alcohol and Drug Abuse Patient Records regulations: The Federal rules restrict any use of the information to criminally investigate or prosecute any alcohol or drug abuse patient.[facility] Reason for Visit (unrecogniz ed section and content) Reason Comments PT Discharge Specialty Diagnoses / Procedures Referred By Fransico t Referred To Contact [facility] Diagnoses Gait abnormality Hip pain, unspecified laterality Closed displaced fracture of fifth metatarsal bone of right foot with delayed healing, subsequent encounter Procedures CONSULT TO PHYSICAL THERAPY PHYSICAL THERAPY EVALUATION HIGH COMPLEX 45 MINS Amos Floyd MD [address] [place] [address] [facility] [place] [address] [place] [address] Referral ID Status Reason Start Date Expiration Date Visits Requested Visits Authorized [id number] Authorized Auto-Generat ed Referral 02/20/2023 02/20/2024 99 99 Reason Comments Physical Therapy Reason Comments PT Progress Note Reason Comments F/U 6 months Reason Comments [...] up Reason Comments Patient Question 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 Reason Onset Date Comments Refill Request 09/19/2022 Reason Onset Date Comments Left Hip Pain Immunizations 10/26/2022 Flu vaccination Reason Comments PT Eval Specialty Diagnoses / Procedures Referred By Contac t Referred To Contact [facility] Diagnoses Hip pain, unspecified laterality Procedures CONSULT TO PHYSICAL THERAPY PHYSICAL THERAPY EVALUATION HIGH COMPLEX 45 MINS Amos Floyd MD [address] [place] [id number] [facility] [address] [address] Referral ID Status Reason Start Date Expiration Date V isits Requested Visits Authorized [id number] Closed Auto-Generate d Referral 10/26/2022 02/19/2023 1 1 Reason Comments Pain (foot) Right side of R foot x 2 days Reason Comments Refill Request Reason Comments Established Patient Follow Up Reason Comments Medicare Wellness Exam F/U 6 months Reason Comments PT Eval Reason Comments Patient Update Reason Comments ED Follow-up [facility] Specialty Diagnoses / Procedures Referred By Contac t Referred To Contact Diagnoses Hypercalcemia Addisons Disease Procedures ER OBSERVATION Elisa Mcdonough MD [address] [place] [address] [address] [place] [address] Referral ID Status Reason Start Date Expiration Date Visits Re quested Visits Authorized [id number] 1 1 Reason Comments Clinical Update Reason Comments Hospital F/U High calcium Reason Comments Chest Pain Reason Comments Blood Pressure Reason Comments Appointment Reason Comments Recheck Reason Comments Hypertension Reason Comments Follow Up 6 week follow up Reason Onset Date Comments Refill Request 12/06/2023 Reason Comments Insurance Authorization Reason Comments Radiology Review Reason Comments Actionable Findings Follow Up Reason Comments Imm/Inj Reason Onset Date Comments Medicare Wellness Exam Immunizations 01/23/2024 Flu vaccination Specialty Diagnoses / Procedures Referred By Contseferino t Referred To Contact [facility] Diagnoses Nodule of lower lobe of right lung Procedures CT CHEST WO IVCON DIAGNOSTIC COMPUTED TOMOGRAPHY [place]ORAX [place] [address] [place] [address] [address] [place] [address] Referral ID Status Reason Start Date Expiration Date V isits Requested Visits Authorized [id number] Closed Auto-Generate d Referral 01/15/2024 02/13/2025 1 1 Reason Onset Date Comments Population Health Navigation Outreach 04/05/2024 [employer] High Risk - 1st attempt Reason Onset Date Comments Allied Health Visit 05/14/2024 Medication A dherence Outreach Reason Onset Date Comments Allied Health Visit 06/19/2024 Medication A dherence Outreach Care Teams (unrecognized sec tion and content) Park Naturalist Relationship Specialty Start Date End Date Amos Floyd MD [address] [place] [address] PCP - General 04/16/04 Park Naturalist Relationship Specialty Start Date End Date Amos Floyd MD [address] [place] [address] PCP - General 04/16/04 Park Naturalist Relationship Specialty Start Date End Date Amos Floyd MD [address] [place] [address] PCP - General 04/16/04 Park Naturalist Relationship Specialty Start Date End Date Amos Floyd MD [address] [place] [address] PCP - General 04/16/04 Park Naturalist Relationship Specialty Start Date End Date Amos Floyd MD [address] [facility] [place] [address] PCP - General 04/16/04 Park Naturalist Relationship Specialty Start Date End Date Amos Floyd MD [address] [facility] [place] [address] PCP - General 04/16/04 Park Naturalist Relationship Specialty Start Date End Date Amos Floyd MD [address] [facility] [place] [address] PCP - General 04/16/04 Park Naturalist Relationship Specialty Start Date End Date Amos Floyd MD [facility] [place] [address] PCP - General 04/16/04 Park Naturalist Relationship Specialty Start Date End Date Amos Floyd MD [address] [facility] [place] [address] PCP - General 04/16/04 Park Naturalist Relationship Specialty Start Date End Date Amos Floyd MD [address] [facility] [place] [address] PCP - General 04/16/04 Park Naturalist Relationship Specialty Start Date End Date Amos Floyd MD [address] [facility] [place] [address] PCP - General 04/16/04 Park Naturalist Relationship Specialty Start Date End Date Amos Floyd MD [facility] [place] [address] PCP - General 04/16/04 Park Naturalist Relationship Specialty Start Date End Date Amos Floyd MD [facility] [place] [address] PCP - General 04/16/04 Team Status: Active Member Role Status Dates Dr. Amos Floyd MD Family Provider Active Dr. Amos Floyd MD Primary Care Provider Active Team Status: Inactive Member Role Status Dates Dr. Amos Floyd MD Primary Care Provider, Refer ring Provider Active Shameka Velasquez PA, PA Attending Provider Active Team Status: Inactive Member Role Status Dates Dr. Amos Floyd MD Primary Care Provider, Refer ring Provider Active Dr. Torsten Vann MD Attending Provider Active Team Status: Inactive Member Role Status Dates Dr. Amos Floyd MD Primary Care Provider Active Dr. Torsten Vann MD Attending Provider, Referring Provi tommy Active Team Status: Inactive Member Role Status Dates Dr. Amos Floyd MD Primary Care Provider Active Dr. Jennifer Tarango DO Attending Provider Active Team Status: Inactive Member Role Status Dates Dr. Amos Floyd MD Primary Care Provider Active Dr. Jordan Marte MD Attending Provider Active Team Status: Inactive Member Role Status Dates Dr. Amos Floyd MD Primary Care Provider Active Shameka DISLA PA Attending Provider Active Dr. Torsten Vann MD Other Provider Active Dr. Jordan Marte MD Other Provider Active Team Status: Inactive Member Role Status Dates Dr. Amos Floyd MD Primary Care Provider Active Dr. Jordan Marte MD Attending Provider, Referring Pro vider Active Team Status: Active Member Role Status Dates Dr. Amos Floyd MD Primary Care Provider, Atten ding Provider Active Team Status: Inactive Member Role Status Dates Dr. Amos Floyd MD Primary Care Provider Active Dr. Jennifer Tarango DO Attending Provider, Referring P rovider Active Team Status: Inactive Member Role Status Dates Dr. Amos Floyd MD Primary Care Provider Active Dr. Jordan Marte MD Referring Provider Active Shameka Velasquez PA, PA Attending Provider Active Park Naturalist Relationship Specialty Start Date End Date Amos Floyd MD [address] [facility] [place] [address] PCP - General 04/16/04 Park Naturalist Relationship Specialty Start Date End Date Amos Floyd MD [address] [place] [address] PCP - General 04/16/04 Team Status: Inactive Member Role Status Dates Dr. Amos Floyd MD Primary Care Provider Active Dr. Jennifer Tarango DO Attending Provider Active Dr. Benjamin Gregory MD Other Provider Active Dr. Jordan Marte MD Other Provider Active Team Status: Inactive Member Role Status Dates Dr. Amos Floyd MD Primary Care Provider Active Dr. Jordan Marte MD Other Provider Active Shameka Velasquez PA, PA Attending Provider, Referr ing Provider Active [facility] Naturalist Relationship Specialty Start Date End Date Amos Floyd MD [address] [place] [address] PCP - General 04/16/04 Park Naturalist Relationship Specialty Start Date End Date Amos Floyd MD [address] [place] [address] PCP - General 04/16/04 Park Naturalist Relationship Specialty Start Date End Date Amos Flody MD [address] [place] [address] PCP - General 04/16/04 Park Naturalist Relationship Specialty Start Date End Date Amos Floyd MD [address] [place] [address] PCP - General 04/16/04 Park Naturalist Relationship Specialty Start Date End Date Amos Floyd MD [address] [place] [address] PCP - General 04/16/04 Team Status: Inactive Member Role Status Dates Dr. Amos Floyd MD Primary Care Provider Active Dr. Jordan Marte MD Other Provider Active Shameka DISLA PA Attending Provider, Referr ing Provider Active Dr. Torsten Vann MD Other Provider Active Dr. Jennifer Tarango DO Other Provider Active Park Naturalist Relationship Specialty Start Date End Date Amos Floyd MD [address] [facility] [place] [address] PCP - General 04/16/04 Park Naturalist Relationship Specialty Start Date End Date Amos Floyd MD [address] [facility] [place] [address] PCP - General 04/16/04 Park Naturalist Relationship Specialty Start Date End Date Amos Floyd MD [address] [place] [address] PCP - General 04/16/04 Team Status: Inactive Member Role Status Dates Dr. Amos Floyd MD Primary Care Provider, Refer ring Provider Active Ryan Ji CERTIFIED PEER SPECIALIST, CERTIFIED PEER SPECIALIST-C Attending Provider Active Park Naturalist Relationship Specialty Start Date End Date Amos Floyd MD [address] [place] [address] PCP - General 04/16/04 Park Naturalist Relationship Specialty Start Date End Date Amos Floyd MD [address] [place] [address] PCP - General 04/16/04 Team Status: Active Member Role Status Dates Dr. Amos Floyd MD Primary Care Provider Active Dr. Jordan Marte MD Other Provider Active Shameka DISLA, PA Attending Provider, Referr ing Provider Active Dr. Torsten Vann MD Other Provider Active Dr. Jennifer Tarango DO Other Provider Active Team Status: Active Member Role Status Dates Dr. Amos Floyd MD Primary Care Provider Active Dr. Jordan Marte MD Attending Provider Active Team Status: Inactive Member Role Status Dates Dr. Amos Floyd MD Primary Care Provider Active Ryan Ji CERTIFIED PEER SPECIALIST, CERTIFIED PEER SPECIALIST-C Attending Provider, Referring Pro vider Active Park Naturalist Relationship Specialty Start Date End Date Amos Floyd MD [address] [place] [address] PCP - General 04/16/04 Team Status: Inactive Member Role Status Dates Dr. Amos Floyd MD Primary Care Provider Active Dr. Juan Alberto Mcclendon MD Emergency Provider Active Park Naturalist Relationship Specialty Start Date End Date Amos Floyd MD [address] [place] [address] PCP - General 04/16/04 Park Naturalist Relationship Specialty Start Date End Date Amos Floyd MD [address] [place] [address] PCP - General 04/16/04 Park Naturalist Relationship Specialty Start Date End Date Amos Floyd MD [address] [place] [address] PCP - General 04/16/04 Team Status: Inactive Member Role Status Dates Dr. Amos Floyd MD Primary Care Provider Active Dr. Juan Alberto Mcclendon MD Attending Provider, Emergency Provider Active Team Status: Inactive Member Role Status Dates Dr. Amos Floyd MD Primary Care Provider Active Dr. Ankush Noguera DO Emergency Provider Active Park Naturalist Relationship Specialty Start Date End Date Amos Floyd MD [address] [place] [address] PCP - General 04/16/04 Park Naturalist Relationship Specialty Start Date End Date Amos Floyd MD [address] [place] [address] PCP - General 04/16/04 Park Naturalist Relationship Specialty Start Date End Date Amos Floyd MD [address] [place] [address] PCP - General 05/01/20 Team Status: Inactive Member Role Status Dates Dr. Amos Floyd MD Primary Care Provider Active Dr. Ankush Noguera DO Attending Provider, Emergency Provider Active Team Status: Inactive Member Role Status Dates Dr. Amos Floyd MD Primary Care Provider Active Rocio CERTIFIED PEER SPECIALIST, Fide Attending Provider, Referring Prov ider Active Park Naturalist Relationship Specialty Start Date End Date Amos Floyd MD [address] [place] [address] PCP - General 04/16/04 Park Naturalist Relationship Specialty Start Date End Date Amos Floyd MD [address] [place] [address] PCP - General 04/16/04 Park Naturalist Relationship Specialty Start Date End Date Amos Floyd MD [address] [place] [address] PCP - General 04/16/04 Park Naturalist Relationship Specialty Start Date End Date Amos Floyd MD [address] [place] [address] PCP - General 04/16/04 Park Naturalist Relationship Specialty Start Date End Date Amos Floyd MD [address] [place] [address] PCP - General 04/16/04 Park Naturalist Relationship Specialty Start Date End Date Amos Floyd MD [address] [facility] [place] [address] PCP - General 04/16/04 Park Naturalist Relationship Specialty Start Date End Date Amos Floyd MD [address] [facility] [place] [address] PCP - General 04/16/04 Park Naturalist Relationship Specialty Start Date End Date Amos Floyd MD [address] [facility] [place] [address] PCP - General 04/16/04 Park Naturalist Relationship Specialty Start Date End Date Amos Floyd MD [address] [facility] [place] [address] PCP - General 04/16/04 Park Naturalist Relationship Specialty Start Date End Date Amos Floyd MD [address] [place] [address] PCP - General 04/16/04 Park Naturalist Relationship Specialty Start Date End Date Amos Floyd MD [address] [facility] [place] [address] PCP - General 04/16/04 Park Naturalist Relationship Specialty Start Date End Date Amos Floyd MD [address] [facility] [place] [address] PCP - General 04/16/04 Park Naturalist Relationship Specialty Start Date End Date Amos Floyd MD [address] [place] [address] PCP - General 04/16/04 Park Naturalist Relationship Specialty Start Date End Date Amos Floyd MD [address] [place] [address] PCP - General 04/16/04 Park Naturalist Relationship Specialty Start Date End Date Amos Floyd MD [address] [facility] [place] [address] PCP - General 04/16/04 Park Naturalist Relationship Specialty Start Date End Date Amos Floyd MD [address] [facility] [place] [address] PCP - General 04/16/04 Rocio Elizalde, ROAD ROLLER OPERATOR [employer] M[employer].SPORTS TEAM MANAGER [address] [facility] [place] [address] Provider Contracting Consultant Internal Medicine 01/29/24 Park Naturalist Relationship Specialty Start Date End Date Amos Floyd MD [address] [facility] [place] [address] PCP - General 04/16/04 Rocio Elizalde, ROAD ROLLER OPERATOR HOT M[employer].SPORTS TEAM MANAGER [address] [facility] [place] [address] Provider Contracting Consultant Internal Medicine 01/29/24 Park Naturalist Relationship Specialty Start Date End Date Amos Floyd MD [address] [facility] [place] [address] PCP - General 04/16/04 Rocio Elizalde, ROAD ROLLER OPERATOR HOT M[employer].SPORTS TEAM MANAGER [address] [facility] [place] [address] Provider Contracting Consultant Internal Medicine 01/29/24 Park Naturalist Relationship Specialty Start Date End Date Amos Floyd MD [address] [facility] [place] [address] PCP - General 04/16/04 Rocio Elizalde, ROAD ROLLER OPERATOR HOT MIX.SPORTS TEAM MANAGER [address] [facility] [place] [address] Provider Contracting Consultant Internal Medicine 01/29/24 Team Status: Active Member Role Status Dates Dr. Amos Floyd MD Primary Care Provider Active Team Status: Inactive Member Role Status Dates Dr. Amos Floyd MD Primary Care Provider Active Start: March 21, 2024 End: March 22, 2024 Dr. Jordan Marte MD Other Provider Active Start : March 21, 2024 End: March 22, 2024 Shameka DISLA PA Attending Provider Active Start: March 21, 2024 End: March 22, 2024 Shameka DISLA PA Referring Provider Active Start: March 21, 2024 End: March 22, 2024 Dr. Torsten Vann MD Other Provider Active Start: March 21, 2024 End: March 22, 2024 Dr. Jennifer Tarango DO Other Provider Active Sta rt: March 21, 2024 End: March 22, 2024 Team Status: Inactive Member Role Status Dates Dr. Amos Floyd MD Primary Care Provider Active Start: April 03, 2024 End: April 03, 2024 Dr. Jennifer Tarango DO Attending Provider Active Start: April 03, 2024 End: April 03, 2024 Dr. Jennifer Tarango DO Referring Provider Active Start: April 03, 2024 End: April 03, 2024 Team Status: Inactive Member Role Status Dates Dr. Amos Floyd MD Primary Care Provider Active Start: April 26, 2024 End: April 26, 2024 Dr. Jordan Marte MD Other Provider Active Start : April 26, 2024 End: April 26, 2024 Shameka DISLA PA Attending Provider Active Start: April 26, 2024 End: April 26, 2024 Shameka DISLA PA Referring Provider Active Start: April 26, 2024 End: April 26, 2024 Dr. Torsten Vann MD Other Provider Active Start: April 26, 2024 End: April 26, 2024 Dr. Jennifer Tarango , Other Provider Active Sta rt: April 26, 2024 End: April 26, 2024 Team Status: Inactive Member Role Status Dates Dr. Amos Floyd MD Primary Care Provider Active Start: April 29, 2024 End: April 29, 2024 Dr. Amos Floyd MD Referring Provider Active Start: April 29, 2024 End: April 29, 2024 NIGHAT Burns Attending Provider Active St art: April 29, 2024 End: April 29, 2024 Team Status: Active Member Role Status Dates Dr. Amos Floyd MD Primary Care Provider Active Start: May 24, 2024 Dr. Jordan Marte MD Other Provider Active Start : May 24, 2024 Shameka Velasquez PA, PA Attending Provider Active Start: May 24, 2024 Shameka Velasquez PA, PA Referring Provider Active Start: May 24, 2024 Dr. Torsten Vann MD Other Provider Active Start: May 24, 2024 Dr. Jennifer Tarango DO Other Provider Active Sta rt: May 24, 2024 Team Status: Inactive Member Role Status Dates Dr. Amos Floyd MD Primary Care Provider Active Start: May 24, 2024 End: May 24, 2024 NIGHAT Burns Attending Provider Active St art: May 24, 2024 End: May 24, 2024 NIGHAT Burns Referring Provider Active St art: May 24, 2024 End: May 24, 2024 Team Status: Active Member Role Status Dates Dr. Amos Floyd MD Primary Care Provider Active Start: May 24, 2024 Dr. Jordan Marte MD Attending Provider Active S tart: May 24, 2024 Park Naturalist Relationship Specialty Start Date End Date Amos Floyd MD [address] [place], [place] [address] PCP - General 04/16/04 Rocio Elizalde, ROAD ROLLER OPERATOR HOT M[employer].SPORTS TEAM MANAGER [address] [place], [place] [address] [facility] Internal Medicine 01/29/24 Team Status: Inactive Member Role Status Dates Dr. Amos Floyd MD Primary Care Provider Active Start: May 24, 2024 End: June 19, 2024 Dr. Jordan Marte MD Other Provider Active Start : May 24, 2024 End: June 19, 2024 Shameka Velasquez PA, PA Attending Provider Active Start: May 24, 2024 End: June 19, 2024 Shameka Velasquez PA, PA Referring Provider Active Start: May 24, 2024 End: June 19, 2024 Dr. Torsten Vann MD Other Provider Active Start: May 24, 2024 End: June 19, 2024 Dr. Jennifer Tarango , Other Provider Active Sta rt: May 24, 2024 End: June 19, 2024 Team Status: Active Member Role Status Dates Dr. Amos Floyd MD Primary Care Provider Active Start: June 21, 2024 Dr. Jordan Marte MD Other Provider Active Start : June 21, 2024 Shameka Velasquez PA, PA Attending Provider Active Start: June 21, 2024 Shameka Velasquez PA, PA Referring Provider Active Start: June 21, 2024 Dr. Torsten Vann MD Other Provider Active Start: June 21, 2024 Dr. Jennifer Tarango DO Other Provider Active Sta rt: June 21, 2024 Team Status: Inactive Member Role Status Dates Dr. Amos Floyd MD Primary Care Provider Active Start: July 03, 2024 End: July 03, 2024 NIGHAT Burns Attending Provider Active St art: July 03, 2024 End: July 03, 2024 NIGHAT Burns Referring Provider Active St art: July 03, 2024 End: July 03, 2024 Team Status: Inactive Member Role Status Dates Dr. Amos Floyd MD Primary Care Provider Active Start: June 21, 2024 End: June 21, 2024 Dr. Jordan Marte MD Other Provider Active Start : June 21, 2024 End: June 21, 2024 Shameka Velasquez PA, PA Attending Provider Active Start: June 21, 2024 End: June 21, 2024 Shameka Velasquez PA, PA Referring Provider Active Start: June 21, 2024 End: June 21, 2024 Dr. Torsten Vann MD Other Provider Active Start: June 21, 2024 End: June 21, 2024 Dr. Jennifer Tarango DO Other Provider Active Sta rt: June 21, 2024 End: June 21, 2024 Team Status: Active Member Role Status Dates Dr. Amos Floyd MD Primary Care Provider Active Start: July 03, 2024 Dr. Jordan Marte MD Attending Provider Active S tart: July 03, 2024 Team Status: Inactive Member Role Status Dates Dr. Amos Floyd MD Primary Care Provider Active Start: July 23, 2024 End: July 23, 2024 Dr. Amos Floyd MD Referring Provider Active Start: July 23, 2024 End: July 23, 2024 Heaven Bolton CERTIFIED PEER SPECIALIST, CERTIFIED PEER SPECIALIST-C Attending Provider Active Start: July 23, 2024 End: July 23, 2024 Park Naturalist Relationship Specialty Start Date End Date Amos Floyd MD [address] [place] [address] PCP - General 04/16/04 Rocio Elizalde, ROAD ROLLER OPERATOR HOT M[employer].SPORTS TEAM MANAGER [address] [place], [place] [id number] Provider Contracting Consultant Internal Medicine 01/29/24 Team Status: Inactive Member Role Status Dates Dr. Amos Floyd MD Primary Care Provider Active Start: August 05, 2024 End: August 05, 2024 Dr. Jordan Marte MD Attending Provider Active S tart: August 05, 2024 End: August 05, 2024 Dr. Jordan Marte MD Referring Provider Active S tart: August 05, 2024 End: August 05, 2024 Team Status: Active Member Role Status Dates Dr. Amos Floyd MD Primary Care Provider Active Start: August 07, 2024 Dr. Obinna Frye MD Emergency Provider Active Sta rt: August 07, 2024 Dr. Sadia Silverio DO Admit Provider Active Start: August 07, 2024 Dr. Sadia Silverio DO Attending Provider Active Start: August 07, 2024 Dr. Sadia Silverio , DO Referring Provider Active Start: August 07, 2024 Scheduled Active and Recently Administ ered Medications (unrecognized section and content) Medication Order 05/24/2023 05/25/2023 05/26/2023 calcitonin (Miacalcin) injection 260 Units (CANCELED) 260 Units (rounded from 256.4 Units = 4 Units/kg 64.1 kg), intramuscular, Every 12 hours, First dose (after last modification) on Mon05/24/23 at 1615, For 48 hours 1741 (Given - Provider: Triston Calixto - Comment: nurse work flow) 0408 (Given - Provider: Yevgeniy Odom, ROSS) cephalexin (Keflex) capsule 500 mg 500 mg, oral, Every 12 hours scheduled, First dose on Mon05/24/23 at 1130, Suspected Indication (Select all that apply): Urinary Tract Infection, Type of Therapy: Empiric, Type of Urinary Tract Infection: Uncomplicated 1116 (Given - Provider: Aicha Call RN)2013 (Given - Provider: Yevgeniy Odom RN) 0934 (Given - Provider: Aicha Call RN)1999 (Given - Provider: Angelica Dominguez RN) 0838 (Given - Provider: Shakira Corley, ROSS)2099 (Due) hydrocortisone (Cortef) tablet 20 mg 20 mg, oral, Daily, First dose on Mon05/24/23 at 0915 1115 (Given - Provider: Aicha Call RN) 0934 (Given - Provider: Aicha Call RN) 0838 (Given - Provider: Shakira Corley, ROSS) promethazine (Phenergan) 12.5 mg in sodium chloride 0.9% 50 mL IV (COMPLETED) 12.5 mg, intravenous, Administer over 15 Minutes, Once, On Madalyn 05/25/23 at 1030, For 1 dose 1048 (Given - Provider: Aicha Call RN) simvastatin (Zocor) tablet 20 mg 20 mg, oral, Nightly, First dose on Mon05/24/23 at 2100 2013 (Given - Provider: Yevgeniy Odmo RN) 1999 (Given - Provider: Angelica Dominguez RN) 2099 (Due) warfarin (Coumadin) tablet 2.5 mg 2.5 mg, oral, Daily, First dose on Mon05/24/23 at 1800 1733 (Given - Provider: Aicha Call RN) 1740 (Given - Provider: Aicha Call RN) 1800 (Due) Continuous Medication Order 05/24/2023 05/25/2023 05/26/2023 sodium chloride 0.9% infusion (CANCELED) 100 mL/hr, intravenous, Continuous, Starting on Mon05/24/23 at 0230, For 1 day 0230 (New Bag - Provider: Angelica Dominguez RN)1357 (Stopped - Provider: Aicha Call RN) sodium chloride 0.9% infusion 100 mL/hr, intravenous, Continuous, Starting on Mon05/24/23 at 1600, For 48 hours 1733 (New Bag - Provider: Aicha Call RN)2110 (Rate/Dose Verify - Provider: Yevgeniy Odom RN)2328 (Rate/Dose Verify - Provider: Yevgeniy Odom RN) 0137 (Rate/Dose Verify - Provider: Yevgeniy Odom RN)0340 (Rate/Dose Verify - Provider: Yevgeniy Odom RN)0408 (New Bag - Provider: Yevgeniy Odom RN)0545 (Rate/Dose Verify - Provider: Yevgeniy Odom RN)1809 (New Bag - Provider: Aicha Call RN)1817 (Rate/Dose Verify - Provider: Aicha Call RN) PRN Medication Order 05/24/2023 05/25/2023 05/26/2023 acetaminophen (Tylenol) oral liquid 650 mg(Linked Group 1) 650 mg, oral, Every 4 hours PRN, pain mild (1-3), first line, Starting on Mon05/24/23 at 0205, Give oral liquid per feeding tube if present. acetaminophen (Tylenol) suppository 650 mg(Linked Group 1) 650 mg, rectal, Every 4 hours PRN, pain mild (1-3), first line, Starting on Mon05/24/23 at 0205, Give rectally if unable to administer by mouth or feeding tube., If ordered PRN for pain, nurse is permitted to administer this medication for higher pain scores based on patient preference? Yes acetaminophen (Tylenol) tablet 650 mg(Linked Group 1) 650 mg, oral, Every 4 hours PRN, pain mild (1-3), first line, headaches, fever (temp greater than 38.0 C), Starting on Mon05/24/23 at 0205, If ordered PRN for pain, nurse is permitted to administer this medication for higher pain scores based on patient preference? Yes ondansetron (Zofran) injection 4 mg(Linked Group 2) 4 mg, intravenous, Every 8 hours PRN, nausea/vomiting, first line, Starting on Mon05/24/23 at 0205, 1st Line. Give IV if patient is unable to take orally. If inadequate response within 60 minutes, proceed to next-line agent for same PRN reason or contact provider if no further options ordered. When administering via IV Push, administer over 3-5 minutes. 8 (Given - Provider: Yevgeniy Odom RN)1740 (Given - Provider: Aicha Call, ROSS) ondansetron (Zofran) tablet 4 mg(Linked Group 2) 4 mg, oral, Every 8 hours PRN, nausea/vomiting, first line, Starting on Mon05/24/23 at 0205, 1st Line. Use oral route first, if possible. If inadequate response within 60 minutes, proceed to next-line agent for same PRN reason or contact provider if no further options ordered. 457 (See Alternative - Provider: Yevgeniy Odom RN)1740 (See Alternative - Provider: Aicha Call, ROSS) Linked Groups Order Group 1: acetaminophen (Tylenol) tablet 650 mgJump to med 650 mg, oral, Every 4 hours PRN, pain mild (1-3), first line, headaches, fever (temp greater than 38.0 C), Starting on Mon05/24/23 at 0205
If ordered PRN for pain, nurse is permitted to administer this medication for higher pain scores based on patient preference? Yes Or acetaminophen (Tylenol) oral liquid 650 mgJump to med 650 mg, oral, Every 4 hours PRN, pain mild (1-3), first line, Starting on Mon05/24/23 at 0205
Give oral liquid per feeding tube if present.
Or acetaminophen (Tylenol) suppository 650 mgJump to med 650 mg, rectal, Every 4 hours PRN, pain mild (1-3), first line, Starting on Mon05/24/23 at 0205
Give rectally if unable to administer by mouth or feeding tube.
If ordered PRN for pain, nurse is permitted to administer this medication for higher pain scores based on patient preference? Yes Group 2: ondansetron (Zofran) tablet 4 mgJump to med 4 mg, oral, Every 8 hours PRN, nausea/vomiting, first line, Starting on Mon05/24/23 at 0205
1st Line. Use oral route first, if possible. If inadequate response within 60 minutes, proceed to next-line agent for same PRN reason or contact provider if no further options ordered.
Or ondansetron (Zofran) injection 4 mgJump to med 4 mg, intravenous, Every 8 hours PRN, nausea/vomiting, first line, Starting on Mon05/24/23 at 0205
1st Line. Give IV if patient is unable to take orally. If inadequate response within 60 minutes, proceed to next-line agent for same PRN reason or contact provider if no further options ordered. When administering via IV Push, administer over 3-5 minutes.
FOR RECORDS PERTAINING TO PATIENTS WHO ARE [...] BE BASED ON THE PRIMARY CLINICAL RECORDS. [employer] provides no warranty or guarantee of the accuracy or completeness of information in this document.
[2024-08-07] MEDS: Hydrocortisone Sod Succinate 100 MG/2 ML Vial 50 MG IV (22:47)
[2024-08-07] MEDS: 0.9% Normal Saline (1000mL) 1,000 ML 100 ML IV (23:00)
[2024-08-08] VITALS (8 sets, daily range): BP systolic 98–124; BP diastolic 70–85; PULSE 76–99; RESP 15–18; TEMP 36.6–37; O2SAT 95–98; BMI 27.8
[2024-08-08] MEDS: Hydrocortisone Sod Succinate 100 MG/2 ML Vial 50 MG IV ×3 (05:24→22:33)
--- NOTE | 2024-08-08 09:45 | CASEMGMT ---
ROSS GILLILAND Assessment Face to Face with patient for initial transition planning/care coordination assessment. ROSS GILLILAND introduced self and role at [facility], pt voices understanding. Pt is A&Ox4 and is resting comfortably in bed and is calm. Care providers, pharmacy, and demographics verified. Admitting dx: UTI, Sepsis, Hypotension LACE Strata: 2 PCP: Donaldo Specialists: Sukhdeep (Nephro), Marco A (Endocrinology [facility]), Sheridan RAMIREZ (Urology) Preferred Pharmacy: [facility] Insurance: [employer] [facility] Prescription Benefit: Yes LNOK: Lisa (Daughter), Fide (Daughter) Living Arrangements: Pt lives alone in a single story home with a ramp to enter ADLs/IADLs: Indep. 6-Click score is 24 Transportation: Self, daughters. Denies concerns DME: Shower chair, Cane, FWW, Grab bars HHC/SNF: Hx with [facility] HH and [facility] TCU and [address] Pt?s goal: Home Plan: Home, anticipate no additional needs at this time. Cardio consult. Pt states that she feels safe returning home alone once medically ready and denies the need for HH or OP Tx. Pt denies further questions or concerns at this time. Gianluca Jones RN, CM
--- NOTE | 2024-08-08 10:28 | PCM.PN.HOSP ---
Subjective Subjective doing well, feels better than when she came in. Blood pressure stable can transfer out of the unit today Objective Data Objective Data Vital Signs: Vital Signs Temp Pulse Resp BP Pulse Ox O2 Del Method 97.8 F 88 17 116/85 H 98 Room Air 08/08/24 10:05 08/08/24 10:05 08/08/24 10:05 08/08/24 10:05 08/08/24 10:05 08/08/24 10:05 Oxygen Delivery Method Room Air Weight: 152 lb 6.4 oz Body Mass Index (BMI) 27.8 Intake & Output: Intake and Output for Last 24 Hours 08/07/24 08/08/24 08/09/24 03:59 03:59 03:59 Intake Total 3050 / 3050 1000 / 1000 Output Total 300 / 300 250 / 250 Balance 2750 / 2750 750 / 750 Lab / Micro Data 08/07/24 16:06 08/07/24 16:06 Labs: Laboratory Results - last 24 hr 08/07/24 16:06: WBC 15.1 H, RBC 5.11, Hgb 15.2 H, Hct 46.5, MCV 91.0, MCH 29.7, MCHC 32.7, RDW Std Deviation 52.4 H, RDW Coeff of Slava 15.6 H, Plt Count 193, MPV 11.9, Immature Gran % (Auto) 1.600 H, Neut % (Auto) 71.7 H, Lymph % (Auto) 15.0 L, Harper % (Auto) 9.7, Eos % (Auto) 1.1, Baso % (Auto) 0.9, Absolute Neuts (auto) 10.8 H, Absolute Lymphs (auto) 2.26, Nucleated RBC % 0, Sodium 137, Potassium 4.5, Chloride 107, Carbon Dioxide 14.6 L, Anion Gap 15, BUN 43 H, Creatinine 1.59 H, Estim Creat Clear Calc 25.08 L, Est GFR (MDRD) Non-Af 32 L, BUN/Creatinine Ratio 27.3 H, Glucose 139 H, Calcium 9.9, Iron 55, TIBC 295, Iron Saturation 19.0, Unsaturated IBC 240, Ferritin 107, Total Bilirubin 0.52, AST 27, ALT 20, Alkaline Phosphatase 102, Troponin T High Sens 60 H*, Total Protein 6.3, Albumin 4.1, Globulin 2.2, Albumin/Globulin Ratio 1.8, TSH 1.030, Cortisol PM Sample 12.00 H 08/07/24 18:06: Troponin T Hi Sens 2 Hr 55 H*, Urine Color Yellow, Urine Clarity Clear, Urine pH 6.0, Ur Specific Stevinson 1.015, Urine Protein 30 H, Urine Glucose (UA) Normal, Urine Ketones Negative, Urine Occult Blood 150 H, Urine Nitrite Positive H, Urine Bilirubin Negative, Urine Urobilinogen Normal, Ur Leukocyte Esterase 25 H, Urine RBC 0-5 SEEN, Urine WBC 5-10 SEEN, Ur Squamous Epith Cells 0 SEEN, Urine Bacteria 3+, Urine Mucus 0 SEEN 08/07/24 20:50: PT 14.9, INR 1.1, Lactic Acid < 1.0, Troponin T Hi Sens 4Hr 52 H 08/07/24 22:00: Blood Type O POSITIVE, Antibody Screen NEGATIVE Micro: Microbiology 08/07/24 18:06 Urine, Random Urine Culture - Preliminary Gram negative chacho Radiography Diagnostic Testing: Radiology Impression Abdomen/Pelvis CT 08/07/24 20:24 IMPRESSION: Possible urinary bladder wall thickening which is poorly visualized due to decompression around a Jarrell catheter. Correlate with urinalysis to exclude cystitis. Right kidney simple cyst. Otherwise, normal appearance of the right kidney. Surgically absent left kidney. Infrarenal IVC filter. If not actively managed by Interventional Radiology, consider a consult for management. Colonic diverticulosis. Reading Location: [place] [address] Physical Exam Narrative General: Alert, Oriented x3, Cooperative, No apparent distress HEENT: Atraumatic, PERRLA, EOMI, Normocephalic Oral: Moist Mucosa Neck: Supple, No JVD Lungs: Diminished, Normal air movement, No rhonchi, No wheeze, No rales Cardiovascular: Regular rate, Regular Rhythm, Normal S1, Normal S2, No murmurs Abdomen: Soft, Non Tender, Non-Distended, No Hepato-splenomegaly Extremities: No edema, Capillary Refill Less than 3 Seconds Skin: No rashes, No breakdown Musculoskeletal: No Tenderness to Palpation of Joints or Extremities Neurological: No focal neurological deficits, moves all extremities, Sensory exam intact to light touch and pain Psych/Mental Status: Normal Affect, Appropriate Assessment & Plan Assessment/Plan (1) Acute cystitis without hematuria: PLAN: Plan 1. 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 She did not have sepsis on admission based on insurance criteria ? Continue with Rocephin ? 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 Will transfer out of the unit and send to the progressive care unit ? Urine cultures are pending ? Hemoglobin is 15.2, will trend, limited concern for a GI bleed at this time, Hemoccult is pending ? She did have an elevated troponin, she is asymptomatic therefore an insignificant finding 2. Essential HTN/HLD/CAD status post NSTEMI ? Blood pressures are stable ? Can likely resume lisinopril in 24 to 48 hours ? Continue with her home statin ? Monitor make adjustments as necessary ? She had left heart cath on 08/05/2024 with normal coronary arteries and EF of 60%. She does have moderate to severe aortic stenosis therefore I do recommend outpatient follow-up with cardiology for evaluation for possible TAVR 3. History of PE and recurrent DVTs ? She is currently on Coumadin with an INR of 1.1 ? Coumadin has been held given concern for possible GI bleed ? Will place on therapeutic Lovenox as this will be easier to reverse if she does have a positive Hemoccult otherwise can transition back to being on her Coumadin ? This is complicated by history of renal cancer and she is status post partial nephrectomy 4. CKD 3 ? Renal function is at baseline ? Will continue to monitor ? 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
[2024-08-08] MEDS: 0.9% Saline Lock 10 ML Syringe IV ×2 (14:42→22:32)
--- NOTE | 2024-08-08 18:52 | VDLE_ITS ---
Reason For Study Reason For Study: Pain RIGHT LEFT GSV is normal. GSV is normal. Acute deep vein thrombosis is noted in the CFV. It is Acute deep vein thrombosis is noted in the CFVand dilated and NONCOMPRESSIBLE. Prox FV. It is dilated and NONCOMPRESSIBLE. Acute deep vein thrombosis is noted in the CFV, FV, Mid and Dist FV is compressible, spontaneous, phasic, POP V, T/P Trunk, Gastroc V, PTV, and Karon V. It is competent and demonstrates normal augmentation. dilated and NONCOMPRESSIBLE. POP V is compressible, spontaneous, phasic, competent Procedure and demonstrates normal augmentation. This is a venous duplex using B-mode, color flow and T/P Trunk is compressible. spectral Doppler. PTV is compressible. Exam performed portable in patient room. LT PerV is compressible. A preliminary report was called and/or faxed to ROSS Cabrera. VL/Venous Duplex US - Spencer Extrem Interpretation Summary Acute deep vein thrombosis is noted in the right common femoral vein. Acute marcie p vein thrombosis is noted in the right femoral vein. Acute deep vein thrombosis is noted in the right popliteal vein. Acute deep vein thrombosis is noted in the right tibio-peroneal trunk. Acute deep vein thrombosis is noted in the righ t posterior tibial vein. Acute deep vein thrombosis is noted in the right peroneal vein. Acute deep vein thrombosis is n oted in the right gastrocnemius vein. Acute deep vein thrombosis is noted in the left common femoral vein. Acute deep vein thrombosis in noted in the left femoral vein. The remainder of the left lower extremity deep venous system is p atent and compressible. The great saphenous veins appear bilaterally patent and compressible segmentally. Ordering Physician: Ted Toro Referring Physician: Amos Fulton M.D. Performed By: Cierra Torres RVT
[2024-08-08] MEDS: Enoxaparin 80 MG/0.8 ML Syringe 70 MG SC (18:58)
[2024-08-08] MEDS: Ceftriaxone 1 GM/50 ML BAG IV (22:31)
[2024-08-08] MEDS: Atorvastatin Calcium 10 MG Tablet PO (22:33)
[2024-08-09 02:58] VITALS: BP 139/56; PULSE 89; RESP 16; TEMP 37.1; O2SAT 96
[2024-08-09 05:31] VITALS: BMI 29.5
[2024-08-09] MEDS: Hydrocortisone Sod Succinate 100 MG/2 ML Vial 50 MG IV ×2 (05:47→14:53)
[2024-08-09 07:17] LABS: Absolute Lymphocyte Count 0.85 X10^3/uL (0.83-4.51); Absolute Neutrophil Count 9.3 X10^3/uL (2.0-7.7); Basophil# 0.04 X10^3/uL; Basophil% 0.3 % (0-1); Eosinophil# 0.02 X10^3/uL; Eosinophils% 0.2 % (0-5); Hematocrit 40.4 % (37-47); Hemoglobin 13.3 g/dL (12.0-15.0); Lymphocyte # 0.85 X10^3/ul (0.83-4.51); Lymphocyte % 7.4 % (19-41); Mean Corp Hgb Conc 32.9 g/dL (32-36); Mean Corpuscular Hgb 30.1 pg (27.0-32.0); Mean Corpuscular Volume 91.4 fL (81-99); Monocyte# 1.09 X10^3/uL; Monocyte% 9.5 % (0-10); NRBC Flagged by Analyzer 0 % (0-5); Neutrophil # 9.31 X10^3/uL (2.7-7.7); Platelet Count 118 K/mm3 (150-450); RBC Distribution Width CV 15.9 % (11.6-14.6); RBC Distribution Width SD 53.7 fl (35.1-43.9); Red Blood Count 4.42 M/mm3 (4.2-5.4); White Blood Count 11.5 K/mm3 (4.4-11.0)
[2024-08-09 07:35] LABS: Anion Gap 11 (5-15); BUN 41 mg/dL (4-19); BUN/Creat Ratio 30.7 RATIO (10-20); Calcium,Total 8.5 mg/dL (7.6-11.0); Chloride 111 mmol/L (98-108); Creatinine, Serum 1.35 mg/dL (0.70-1.20); EST Glomerular Filtration Rate 39 (>60); Estimated Creatinine Clearance 30.53 ml/min (50-250); Glucose 145 mg/dL (70-99); Potassium 4.9 mmol/L (3.3-5.1); Sodium Level 137 mmol/L (133-145)
[2024-08-09 09:26] VITALS: BP 108/61; PULSE 56; RESP 16; TEMP 36.4; O2SAT 96
[2024-08-09] MEDS: APIXABAN 5 MG TABLET 10 MG PO (11:01)
--- NOTE | 2024-08-09 14:37 | PCM.DC.SUM ---
Providers Date of Admission: 08/07/24 Primary Care Physician: Dr. Amos Fulton MD Reason For Visit: UTI, SEPSIS, HYPOTENSION WITH ORTHOSTATIC Diagnosis Discharge Diagnosis (1) Acute cystitis without hematuria: Status: Acute Code(s): N30.00 - Acute cystitis without hematuria Medications at Discharge Home Medications acetaminophen 500 mg tablet 1,000 mg (2 x 500 mg) PO Q6H PRN Pain Score 1-10 04/08/20 denosumab 60 mg/mL subcutaneous syringe (Prolia) 60 mg subcut [id number] #1 mL 11/24/22 nitroglycerin 0.4 mg sublingual tablet 0.4 mg sublingual Q5-15M PRN Cardiac/Chest Pain #25 tabs 07/26/23 methenamine hippurate 1 gram tablet 1 g PO QHS 04/29/24 Held on 08/09/24. Instructions: Resume on 08/14/24. simvastatin 20 mg tablet 20 mg PO QHS #90 tabs 07/23/24 ascorbic acid (vitamin C) 1,000 mg tablet 1,000 mg PO QHS 08/07/24 apixaban 5 mg (74 tabs) tablets in a dose pack See Rx Instructions PO .COMPLEX #74 tabs 08/09/24 hydrocortisone 10 mg tablet 10 mg PO TID #27 tabs 08/09/24 hydrocortisone 10 mg tablet 10 mg PO TID #90 tabs 08/09/24 sulfamethoxazole 800 mg-trimethoprim 160 mg tablet (Bactrim DS) 1 tab PO BID #10 tabs 08/09/24 Hospital Course Operations None Procedures None Summary of Care Provided Minutes Spent on Discharge: 40 Hospital Course: This is a an 79-year-old female presents with UTI and was noted to be hypotensive. 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 Patient was started on stress dose steroid and and antibiotics and has since improved. Patient recently held off on her warfarin due to a cardiac catheterization. 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 Patient had been on warfarin for approximately 17 years and had been told that she need to be on lifelong anticoagulation. Verified that she does not have any other indication of needing warfarin such as mechanical heart valves which she does not. Discussed with her that she may have a hypercoagulable state as she does have a daughter who has had a history of DVT and PEs and unclear if she actually has some hypercoagulable state but I was around concerned that that may be the case as patient had been off warfarin for 5 days prior and then had not had a therapeutic INR prior to initiating apixaban on today. So I discussed with she and her other daughter, who does not have any clotting disorder and has been checked for hypercoagulable states which she does not. And about the indication for Eliquis and his ease of use and not having to adjust diet nor out to have any lab work for this. They agreed to continue with taking apixaban which patient had already received earlier today. Patient also be on steroid taper to wean her down to her 10 mg 3 times daily. It is written as 20 mg daily but patient states that for the past 6 months she has been on hydrocortisone 10 mg 3 times daily. Patient also be on Bactrim to complete her course of antibiotics for the UTI. Patient's creatinine clearance is greater than 30 so we will have her taking Bactrim DS 1 tablet twice daily for the next 5 days to complete a 7-day course of antibiotics. Physical Exam Const alert and no apparent distress Resp normal respiratory effort, no retractions, no use of accessory muscles and clear to auscultation bilaterally Cardio regular rate and regular rhythm Cardio Narrative: 2 out of 6 systolic ejection murmur at the right upper sternal border GI normal to inspection, nondistended, normoactive bowel sounds, soft to palpation, non-tender and non-distended Neuro Sensorium / Orientation: awake and alert Weight / BMI Weight Weight: 72.8 kg Body Mass Index (BMI) 29.5 ABG / Lab / Microbiology Data 08/09/24 06:47 08/09/24 06:47 Laboratory: Laboratory Results - last 24 hr 08/09/24 06:47: WBC 11.5 H, RBC 4.42, Hgb 13.3, Hct 40.4, MCV 91.4, MCH 30.1, MCHC 32.9, RDW Std Deviation 53.7 H, RDW Coeff of Slava 15.9 H, Plt Count 118 L, MPV 12.0, Immature Gran % (Auto) 1.600 H, Neut % (Auto) 81.0 H, Lymph % (Auto) 7.4 L, [place] % (Auto) 9.5, Eos % (Auto) 0.2, Baso % (Auto) 0.3, Absolute Neuts (auto) 9.3 H, Absolute Lymphs (auto) 0.85, Nucleated RBC % 0, Sodium 137, Potassium 4.9, Chloride 111 H, Carbon Dioxide 15.0 L, Anion Gap 11, BUN 41 H, Creatinine 1.35 H, Estim Creat Clear Calc 30.53 L, Est GFR (MDRD) Non-Af 39 L, BUN/Creatinine Ratio 30.7 H, Glucose 145 H, Calcium 8.5 Microbiology: Microbiology 08/07/24 18:06 Urine, Random Urine Culture - Final Klebsiella aerogenes D/C Instructions Discharge Diet: No restrictions DC O2, CPAP, BIPAP Needs Home O2 Discharge instructions: No Meaningful Use Info Meaningful Use Meaningful Use Diagnoses (Choose all that apply): None applicable Ischemic Stroke Statin Dosing Therapy Reference: STATIN DOSE THERAPY REFERENCE: * Patients > 75 years receive moderate or high dose statin therapy. * Patients 75 years or YOUNGER should receive HIGH intensity statin dose unless contraindicated. You will be required to document reason for non-treatment if statin daily dose does not meet guidelines. HIGH DOSE STATIN THERAPY DAILY Atorvastatin > than or = to 40 mg Rosuvastatin > than or = to 20 mg Amlodipine + Atorvastatin > than or = to 2.5/40 mg Ezetimibe + Simvastatin 10/80 mg Simvastatin 80mg Discharge Plan Admission Admit Date/Time: 08/07/24 20:16 Primary Reason for Your Visit: Urinary tract infection. Attending Provider: Jairo Mitchell Primary Care Provider: Amos Fulton Consulting Providers: Nixon Silverio; Ted Toro Instructions Additional Instructions / Restrictions: Your blood pressure was low due to being on chronic steroids with your Hidalgo's disease and you will be on a prednisone taper over the next 9 days to your normal dosing. Please follow the instructions. Additionally you have a urinary tract infection which she will be on Bactrim for the next 5 days. As we discussed about changing your anticoagulation because you do have what appears to be DVTs in your lower extremities that you will be changed over from warfarin (Coumadin) to apixaban. The apixaban dosing will change after about a week. Please follow the instructions. If you do have any increased swelling in your legs, increased shortness of breath, notify your physician or return to the emergency room. Discharge Orders/Prescriptions Prescriptions: New apixaban 5 mg (74 tabs) tablets,dose pack See Rx Instructions .ROUTE .COMPLEX Qty: 74 0RF Rx Instructions: orally per package directions hydrocortisone 10 mg tablet 10 mg PO TID Qty: 27 0RF Rx Instructions: 4 tabs TID for 3 days, then 3 tabs TID for 3 days, then 2 tabs TID for 3 days. sulfamethoxazole-trimethoprim [Bactrim DS] 800-160 mg tablet 1 tab PO BID Qty: 10 0RF Continued Prolia 60 mg/mL syringe 60 mg subcut [id number] Qty: 1 1RF nitroglycerin 0.4 mg tablet, sublingual 0.4 mg SUBLINGUAL Q5-15M PRN (Reason: Cardiac/Chest Pain) Qty: 25 3RF simvastatin 20 mg tablet 20 mg PO QHS Qty: 90 3RF acetaminophen 500 MG tablet 1,000 mg PO Q6H PRN (Reason: Pain Score 1-10) 0RF ascorbic acid (vitamin C) 1,000 mg tablet 1,000 mg PO QHS Changed hydrocortisone 10 mg tablet 10 mg PO TID Qty: 90 6RF Rx Instructions: resume once you have completed the hydrocortisone taper. Held methenamine hippurate 1 gram tablet 1 g PO QHS Hold Instructions: Resume on 08/14/24. Discontinued lisinopril 5 mg tablet 5 mg PO QDAY Qty: 90 3RF warfarin 2.5 mg tablet 2.5 mg PO DAILY@1700 Qty: 120 3RF Protocol: Dose Management Condition: Monday Dose/Route: 2.5 mg Instruction: 1 x 2.5 mg tablet Condition: Monday Dose/Route: 5 mg Instruction: 2 x 2.5 mg tablets Condition: Monday Dose/Route: 2.5 mg Instruction: 1 x 2.5 mg tablet Condition: Monday Dose/Route: 2.5 mg Instruction: 1 x 2.5 mg tablet Condition: Dose/Route: 2.5 mg Instruction: 1 x 2.5 mg tablet Condition: Monday Dose/Route: 2.5 mg Instruction: 1 x 2.5 mg tablet Condition: Monday Dose/Route: 2.5 mg Instruction: 1 x 2.5 mg tablet Protocol Text: Adjustment Start Date: Monday06/21/24 INR Value: 2.0 INR Date: 06/21/24 Recheck Date: 07/19/24 Rx Instructions: daily or as directed Referrals / Follow Up: Amos Fulton MD [Primary Care Provider] - Within 2 Weeks Disposition Disposition (needs filled in before D/C Order can be placed): Home, Self Care Charges/Coding Visit Charges Inpatient E&M: 11123 Disch Hosp >30min
[2024-08-09 15:03] VITALS: BP 112/73; PULSE 93; RESP 18; TEMP 36.3; O2SAT 96
--- NOTE | 2024-08-09 15:19 | CASEMGMT ---
Patient has order for discharge. Patient discharging on Eliemperatriz, ROSS [place] called [employer], copay is $406.77 as patient has deductible to meet. ROSS CM in to discuss needs at discharge and updated regarding copay. Eliquis savings card provided to patient. Patient denies needs or help at discharge. Patient had no further questions or concerns.
== END 2024-08-09 16:27 | disposition home or self-care (01) | DRG 644 ==
LOC: ED 19:58 → ICU 20:48 → PCU 08-08 10:32
PROVIDERS: Family Medicine; Admitting Provider Internal Medicine; Emergency Provider Emergency Medicine; PCP Internal Medicine; Referring Provider Internal Medicine
DX: E27.1 Primary adrenocortical insufficiency (principal); I82.413 Acute embolism and thrombosis of femoral vein, bilateral; I82.431 Acute embolism and thrombosis of right popliteal vein; I82.451 Acute embolism and thrombosis of right peroneal vein; I82.441 Acute embolism and thrombosis of right tibial vein; N30.00 Acute cystitis without hematuria; N18.32 Chronic kidney disease, stage 3b; I12.9 Hypertensive chronic kidney disease with stage 1 through stage 4 chronic kidney disease, or unspecified chronic kidney disease; I34.0 Nonrheumatic mitral (valve) insufficiency; I35.0 Nonrheumatic aortic (valve) stenosis; E78.5 Hyperlipidemia, unspecified; I25.2 Old myocardial infarction; I25.10 Atherosclerotic heart disease of native coronary artery without angina pectoris; I34.1 Nonrheumatic mitral (valve) prolapse; M19.90 Unspecified osteoarthritis, unspecified site; E86.0 Dehydration; I82.461 Acute embolism and thrombosis of right calf muscular vein; I95.2 Hypotension due to drugs; T38.0X5A Adverse effect of glucocorticoids and synthetic analogues, initial encounter; M85.80 Other specified disorders of bone density and structure, unspecified site; R29.6 Repeated falls; E66.3 Overweight; Z68.27 Body mass index [BMI] 27.0-27.9, adult; Z90.5 Acquired absence of kidney; Z86.711 Personal history of pulmonary embolism; Z86.718 Personal history of other venous thrombosis and embolism; Z85.528 Personal history of other malignant neoplasm of kidney; Z87.448 Personal history of other diseases of urinary system; Z79.01 Long term (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; Z79.899 Other long term (current) drug therapy; Z79.52 Long term (current) use of systemic steroids
CPT/HCPCS: 36415; 51702; 74176; 80048; 80053; 81001; 82533; 82728; 83540; 83550; 83605; 84443; 84484; 85025; 85610; 86850; 86900; 86901; 87040; 87077; 87086; 87088; 87186; 93005; 93454; 93970; 99152; 99153; 99285; Q9967; A4216; C1769; C1894; J0696

== ENCOUNTER → 2024-09-10 | Outpatient (CLI) | payer MEDICARE, SELFPAY ==
[2024-09-10 12:58] LABS: Hematocrit 42.7 % (37-47); Hemoglobin 13.7 g/dL (12.0-15.0); Immature Granulocytes Count 0.170 X10^3/uL (0.0-0.0); Mean Corp Hgb Conc 32.1 g/dL (32-36); Mean Corpuscular Volume 95.1 fL (81-99); Mean Platelet Vol. 11.6 fl (6.2-12.0); NRBC Flagged by Analyzer 0 % (0-5); Platelet Count 234 K/mm3 (150-450); RBC Distribution Width CV 16.3 % (11.6-14.6); RBC Distribution Width SD 57.0 fl (35.1-43.9); Red Blood Count 4.49 M/mm3 (4.2-5.4); White Blood Count 9.6 K/mm3 (4.4-11.0)
[2024-09-10 14:10] LABS: Anion Gap 13 (5-15); BUN 27 mg/dL (4-19); BUN/Creat Ratio 19.7 RATIO (10-20); Calcium,Total 9.5 mg/dL (7.6-11.0); Carbon Dioxide 21.8 mmol/L (21.0-32.0); Chloride 108 mmol/L (98-108); Glucose 76 mg/dL (70-99); Potassium 4.6 mmol/L (3.3-5.1)
== END | disposition home or self-care (01) ==
LOC: LAB 11:45
PROVIDERS: PCP Internal Medicine
DX: I35.0 Nonrheumatic aortic (valve) stenosis (principal)
CPT/HCPCS: 36415; 80048; 85025

== ENCOUNTER → 2024-10-03 | Outpatient (CLI) | payer MEDICARE, SELFPAY ==
[2024-10-03 15:04] LABS: Anion Gap 13 (5-15); BUN 44 mg/dL (4-19); BUN/Creat Ratio 23.9 RATIO (10-20); Calcium,Total 10.2 mg/dL (7.6-11.0); Carbon Dioxide 22.6 mmol/L (21.0-32.0); Chloride 106 mmol/L (98-108); Glucose 77 mg/dL (70-99); Potassium 5.5 mmol/L (3.3-5.1)
== END | disposition home or self-care (01) ==
LOC: LAB 13:35
PROVIDERS: PCP Internal Medicine; Referring Provider Nurse Practitioner Adult Health; Visit Provider Nurse Practitioner Adult Health
DX: N28.9 Disorder of kidney and ureter, unspecified (principal)
CPT/HCPCS: 36415; 80048

== ENCOUNTER → 2024-10-15 | Outpatient (CLI) | payer MEDICARE, SELFPAY ==
[2024-10-15 11:55] LABS: Hematocrit 47.1 % (37-47); Hemoglobin 14.9 g/dL (12.0-15.0); Mean Corp Hgb Conc 31.6 g/dL (32-36); Mean Corpuscular Volume 94.4 fL (81-99); Mean Platelet Vol. 12.8 fl (6.2-12.0); Platelet Count 179 K/mm3 (150-450); RBC Distribution Width CV 15.2 % (11.6-14.6); RBC Distribution Width SD 53.1 fl (35.1-43.9); Red Blood Count 4.99 M/mm3 (4.2-5.4); White Blood Count 9.9 K/mm3 (4.4-11.0)
[2024-10-15 12:58] LABS: Anion Gap 12 (5-15); BUN 33 mg/dL (4-19); BUN/Creat Ratio 20.3 RATIO (10-20); Calcium,Total 9.5 mg/dL (7.6-11.0); Carbon Dioxide 20.9 mmol/L (21.0-32.0); Chloride 109 mmol/L (98-108); Glucose 101 mg/dL (70-99); Potassium 4.8 mmol/L (3.3-5.1)
== END | disposition home or self-care (01) ==
LOC: LAB 11:08
PROVIDERS: PCP Internal Medicine
DX: I35.0 Nonrheumatic aortic (valve) stenosis (principal)
CPT/HCPCS: 36415; 80048; 85027

== ENCOUNTER → 2024-11-25 | Outpatient (CLI) | payer MEDICARE, SELFPAY | END | disposition home or self-care (01) | LOC: LAB 11:28 | PROVIDERS: PCP Internal Medicine; Referring Provider Internal Medicine Nephrology; Visit Provider Internal Medicine Nephrology | DX: Z00.00 Encounter for general adult medical examination without abnormal findings (principal) ==

== ENCOUNTER → 2024-12-03 | Outpatient (CLI) | payer MEDICARE, SELFPAY ==
[2024-12-03 14:57] LABS: Albumin, Serum 3.9 g/dL (3.4-4.8); Anion Gap 10 (5-15); Anion Gap 11 (5-15); BUN 39 mg/dL (4-19); BUN/Creat Ratio 22.6 RATIO (10-20); BUN/Creat Ratio 22.8 RATIO (10-20); Calcium,Total 9.4 mg/dL (7.6-11.0); Carbon Dioxide 22.9 mmol/L (21.0-32.0); Carbon Dioxide 23.5 mmol/L (21.0-32.0); Chloride 108 mmol/L (98-108); Glucose 83 mg/dL (70-99); Potassium 4.6 mmol/L (3.3-5.1)
== END | disposition home or self-care (01) ==
LOC: LAB 12:39
PROVIDERS: Internal Medicine Nephrology; PCP Internal Medicine; Referring Provider Nurse Practitioner Adult Health; Visit Provider Nurse Practitioner Adult Health
DX: N18.32 Chronic kidney disease, stage 3b (principal); Z95.2 Presence of prosthetic heart valve
CPT/HCPCS: 36415; 80048; 80069

== ENCOUNTER → 2024-12-10 | Outpatient (CLI) | payer MEDICARE, SELFPAY ==
--- NOTE | 2024-12-10 15:07 | US_ITS ---
PROCEDURE: KIDNEY AND BLADDER 12/10/2024 REASON FOR EXAM: TYPE 2 DIABETES MELLITUS WITH DIABETIC NEPHROPATHY TECHNIQUE: Procedure Code: USKI Modality: US Procedure: KIDNEY AND BLADDER COMPARISON: CT abdomen and pelvis 08/07/2024 FINDINGS: RIGHT Kidney Size: 11.0 x 3.9 x 3.7 cm Volume: 17 mL Parenchymal Thickness: Within normal limits Cortical Thickness (if discernible): 14 mm (>6mm is normal) Multiple simple kidney cysts with the largest measures 1.9 x 1.6 x 2.4 cm. No nephrolithiasis. LEFT Kidney Absent. BLADDER Decompressed measures 17 mL in volume prevoid volume 3.46 cc. US/Kidney and Bladder IMPRESSION: No right hydronephrosis. Reading Location: [id number]
== END | disposition home or self-care (01) ==
LOC: US 14:58
PROVIDERS: PCP Internal Medicine; Referring Provider Internal Medicine Nephrology; Visit Provider Internal Medicine Nephrology
DX: E11.21 Type 2 diabetes mellitus with diabetic nephropathy (principal)
CPT/HCPCS: 76770

== ENCOUNTER 2024-12-27 00:16 | Observation (INO) | payer MEDICARE, SELFPAY ==
[2024-12-27] VITALS (11 sets, daily range): BP systolic 115–153; BP diastolic 45–111; PULSE 62–118; RESP 16–28; TEMP 35.4–36.6; O2SAT 94–100; BMI 27.7; BMI 27.6
--- OUTSIDE RECORDS SUMMARY | 2024-12-27 00:45 | XMS RPT_ITS | CCD ---
Author Organization [facility] CliniSymn Care Team Providers Care Point Of Care Specialist Name Role Phone ABEL HOLM Unavailable Unavailable MIHAILB SAMNETH Unavailable Unavailable MIHAI, ABEL Unavailable Unavailable ABEL HOLM Unavailable Unavailable ARUN CALERO Attending Unavailable ARUN [...] Logan Tripathi Other Provider Unavailab tomas Palencia PICK UP, PICK UP-C Diana Other Provider Dr. Alberto Gregorio Attending [...] Logan Tripathi Other Provider Unavailab tomas Palencia PICK UP, PICK UP-C Diana Other Provider Dr. Alberto Gregorio Attending [...] Trinidad Referring Provider NIGHAT Shannon Attending Provider Mariel, Dr. Trinidad Primary Care Provider Floyd, Dr. Trinidad Referring Provider Dr. Torsten Vann Attending Provider Floyd, Dr. Trinidad Primary Care Provider Floyd, Dr. Trinidad Referring Provider Dr. Torsten Vann Attending Provider Roof PICK UP, PICK UP-Pasquale Prince Attending Provider Mariel, Dr. Trinidad Primary Care Provider Floyd, Dr. Trinidad Referring Provider Dr. Jordan Marte Attending Provider Dr. Amos Floyd Primary Care Provider Mariel, Dr. Trinidad Referring Provider Roof PICK UP, PICK UP-Pasquale Prince Attending Provider Dr. Jordan Marte Attending Provider ELISA MCDONOUGH Admitting Unavailable ELISA MCDONOUGH Attending Unavailable AMOS FLOYD Primary Care Unavailable Amos Floyd MD Primary Care Provider ELISA MCDONOUGH Admitting Unavailable AMOS FLOYD Primary Care Unavailable JAZMINE BRITT Attending Unavailable ALEXANDER GREGORY Consulting Unavailable Amos Floyd MD Primary Care Provider Fide UNIT AID.AIRWAYS CONTROL SPECIALIST, Rocio M Unavailable Dr. Amos Floyd MD Primary Care Provider Dr. Jordan Marte MD Other Provider Basim Shannon Attending Provider Basim Shannon Referring Provider Dr. Torsten Vann MD Other Provider Dr. Jennifer Tarango DO Other Provider [phone] Jennifer Tarango DO Attending Provider Dr. Jennifer Tarango DO Referring Provider Dr. Amos Floyd MD Referring Provider Tucker Mckeon Attending Provider Tucker Mckeon Referring Provider Dr. Jordan Marte MD Attending Provider Dr. Amos Floyd MD Primary Care Provider Dr. Jordan Marte MD Other Provider Basim Shannon Attending Provider Basim Shannon Referring Provider Dr. Torsten Vann MD Other Provider Dr. Jennifer Tarango DO Other Provider [phone] Heaven Michel Attending Provider Dr. Amos Floyd MD Primary Care Provider Dr. Jordan Marte MD Referring Provider Uday ZELAYA, Dr. Yeboah Emergency Provider de Gelacio DO, Dr. Alicea Admit Provider Unavail able de Gelacio DO, Dr. Alicea Attending Provider Unav ailable de Gelacio DO, Dr. Alicea Referring Provider Unav ailable de Gelacio DO, Dr. Alicea Other Provider Unavail able Paula MARTINEZ, Dr. Gill Attending Provider Cortez ZELAYA, Dr. Ted Hightower Other Provider Cortez ZELAYA, Dr. Ted Hightower Attending Provider Paula MARTINEZ, Dr. Gill Other Provider Jacek HAWKINS, Annemarie Unavailable Unavailable Amos Floyd Primary Care Provider Mariel ZELAYA, Dr. Trinidad Primary Care Provider Estuardo ZELAYA, Dr. Ortega Other Provider Basim Shannon Attending Provider Basim Shannon Referring Provider King NATHALIE, Dr. Sarmiento Other Provider Sukhdeep MARTINEZ, Dr. Coates Other Provider Tucker Mckeon Attending Provider Mariel ZELAYA, Dr. Trinidad Referring Provider Lizabeth ZELAYA, Dr. Scotty Mayfield Attending Provider Cortez ZELAYA, Dr. Ted Hightower Referring Provider MEMO CANAS Attending Provider MEMO CANAS Referring Provider ARELIS SMITH Attending Unavailable ROCIO ELIZALDE Referring Unavailable AMOS FLOYD Primary Care Unavailable Mariel ZELAYA, Dr. Trinidad Primary Care Provider Estuardo ZELAYA, Dr. Ortega Other Provider Basim Shannon Attending Provider Basim Shannon Referring Provider [phone] King NATHALIE, Dr. Sarmiento Other Provider Dr. Jennifer Tarango DO Other Provider [phone] Tucker Mckeon Attending Provider [phone] Tucker Mckeon Referring Provider [phone] Estuardo ZELAYA, Dr. Ortega Attending Provider [phone] Basim Ocampo Attending Provider Basim Ocampo Referring Provider Mariel ZELAYA, Dr. Trinidad Primary Care Provider MEMO CANAS Attending Provider [phone] MEMO CANAS Referring Provider MARIEL, AMOS Prince Primary Care Unavailable FLOYD, JIE Referring Unavailable FLOYD, JIE Primary Care Unavailable JAVIER ABBOTT Attending Unavailable FLOYD, JIE Primary Care Unavailable JAVIER ABBOTT Referring Unavailable FLOYD, AMOS Prince Primary Care Unavailable FLOYD, JIE Referring Unavailable FLOYD, JIE Primary Care Unavailable SELF Referring Unavailable FLOYD, JIE Attending Unavailable SELF Referring Unavailable FLOYD, JIE Attending Unavailable FLOYD, JIE Primary Care Unavailable FLOYD, JIE Attending Unavailable FLOYD, JIE Primary Care Unavailable DUSARELIS Gonzalez Referring Unavailable FLOYD, JIE Primary Care Unavailable DUSLisa, ARELIS Referring Unavailable FLOYD, JIE Primary Care Unavailable FLOYD, JIE Primary Care Unavailable NATHALY REN Attending Unavailable FLOYD, JIE Primary Care Unavailable FLOYD, JIE Primary Care Unavailable FLOYD, JIE Attending Unavailable FLOYD, JIE Primary Care Unavailable FLOYD, JIE Primary Care Unavailable FLOYD, JIE Attending Unavailable FLOYD, JIE Primary Care Unavailable LFOYD, JIE Primary Care Unavailable Mariel ZELAYA, Dr. Trinidad Primary Care Physician Heaven Michel Attending Physician [phone] Estuardo ZELAYA, Dr. Ortega Attending Physician Uday ZELAYA, Dr. Yeboah Emergency Department Physician Silverio DO, Dr. Alicea Admitting Physician Franci vailable Silverio DO, Dr. Alicea Nurse Practitioner Unav ailable Paula MARTINEZ, Dr. Gill Attending Physician Cortez ZELAYA, Dr. Ted Hightower Nurse Practitioner Cortez ZELAYA, Dr. Ted Hightower Attending Physician Lizabeth ZELAYA, Dr. Scotty Mayfield Attending Physician Paula MARTINEZ, Dr. Gill Nurse Practitioner MEMO CANAS Attending Physician Basim Ocampo Attending Physician MEMO CANAS Attending Physician Mariel ZELAYA, Dr. Trinidad Primary Care Physician Mariel ZELAYA, Dr. Trinidad Referring Provider Estuardo ZELAYA, Dr. Ortega Attending Physician Sukhdeep MARTINEZ, Dr. Coates Attending Physician Dr. Jennifer Tarango DO Referring Provider Sukhdeep MARTINEZ, Dr. Coates Nurse Practitioner Jordan Marte Referring Unavailable Amos Floyd Primary Care Unavailable Jordan Marte Attending Unavailable Nixon Silverio Referring Unavailable Nixon Silverio Consulting Unavailable Nixon Silverio Admitting Unavailable Jairo Mitchell Attending Unavailable Amos Floyd Primary Care Unavailable Ted Toro Consulting Unavailable Jennifer Tarango Attending Unavailable Amos Floyd Primary Care Unavailable Basim Shannon Referring Unavail able EstuardoJordan grace Consulting Unavailable Basim Shannon Attending Unavail able Amos Floyd Primary Care Unavailable Torsten Vann Consulting Unavailable Jennifer Tarango Consulting Unavailable Basim Shannon Referring Unavail able Basim Shannon Attending Unavail able Estuardo, Bentley Consulting Unavailable Floyd, Amos Primary Care Unavailable Edwar, Torsten Consulting Unavailable Sukhdeep, Jennifer Consulting Unavailable Floyd, Maos Referring Unavailable Floyd, Amos Attending Unavailable Floyd, Amos Primary Care Unavailable Tucker Reyes Referring Unavailable CristyiterTucker Attending Unavailable Floyd, Amos Primary Care Unavailable Ron DISLA, Basim Montes Referring Unavail able Ron DISLA, Basim Montes Attending Unavail able Estuardo, Bentley Consulting Unavailable Floyd, Amos Primary Care Unavailable Edwar, Torsten Consulting Unavailable Sukhdeep, Jennifer Consulting Unavailable Ron DISLA, Basim Montes Referring Unavail able Ron DISLA, Basim Montes Attending Unavail able Estuardo, Jordan Consulting Unavailable Floyd, Amos Primary Care Unavailable Edwar, Torsten Consulting Unavailable Sukhdeep, Jennifer Consulting Unavailable RAYGOZA, RYA1 Referring Unavailable RAYGOZA, RYA1 Attending Unavailable Floyd, Amos Primary Care Unavailable Estuardo, Bentley Attending Unavailable Floyd, Amos Primary Care Unavailable Nixon Silverio Admitting Unavailable Nixon Silverio Referring Unavailable Nixon Silverio Consulting Unavailable Ted Toro Attending Unavailable Floyd, Amos Primary Care Unavailable Ted Toro Consulting Unavailable Floyd, Amos Referring Unavailable Tucker Reyes Attending Unavailable Floyd, Amos Primary Care Unavailable Floyd, Amos Referring Unavailable Floyd, Amos Primary Care Unavailable Hoang PICK UP, Heaven Attending Unavailable Floyd, Amos Referring Unavailable Estuardo, Jordan Attending Unavailable Floyd, Amos Primary Care Unavailable Basim Joel Referring Unavailable Basim Joel Attending Unavailable Floyd, Amos Primary Care Unavailable RAYGOZA, RYA1 Referring Unavailable RAYGOZA, RYA1 Attending Unavailable Floyd, Amos Primary Care Unavailable Sukhdeep, Jennifer Referring Unavailable Sukhdeep, Jennifer Attending Unavailable Floyd, Amos Primary Care Unavailable Basim Joel Referring Unavailable Sukhdeep, Jennifer Consulting Unavailable Basim Joel Attending Unavailable Floyd, Amos Primary Care Unavailable Sukhdeep, Jennifer Referring Unavailable SukhdeepCarlosJennifer Attending Unavailable Floyd, Amos Primary Care Unavailable Sukhdeep, Jennifer Referring Unavailable Sukhdeep, Jennifer Attending Unavailable Floyd, Amos Primary Care Unavailable Floyd, Amos Primary Care Unavailable Aj Reyesyler Attending Unavailable Amy Tucker Referring Unavailable Basim Shannon M Referring Unavail able Ron DISLA, Basim M Attending Unavail able Estuardo, Bentley Consulting Unavailable Floyd, Amos Primary Care Unavailable Edwar, Torsten Consulting Unavailable Sukhdeep, Jennifer Consulting Unavailable Ron DISLA, Basim M Referring Unavail able Ron DISLA, Basim M Attending Unavail able Estuardo, Jordan Consulting Unavailable Floyd, Amos Primary Care Unavailable Edwar, Torsten Consulting Unavailable Sukhdeep, Jennifer Consulting Unavailable Jairo Mtichell Attending Unavailable Paula, Jairo Consulting Unavailable Nixon Silverio Attending Unavailable Estuardo, Bentley Consulting Unavailable Floyd, Amos Primary Care Unavailable Estuardo, Bentley Attending Unavailable Estuardo, Jordan Attending Unavailable Floyd, Amos Primary Care Unavailable BALDO DE LA CRUZ Attending Unavailable FLOYD, AMOS Primary Care Unavailable BASIM JOEL Referring Unavailable BASIM JOEL Attending Unavailable FLOYD, AMOS Primary Care Unavailable BASIM JOEL Attending Unavailable FLOYD, AMOS Primary Care Unavailable FLOYD, AMOS Primary Care Unavailable MEMO CANAS Attending Unavailable BASIM JOEL Attending Unavailable FLOYD, AMOS Primary Care Unavailable DYLON GUPTA Attending Unavailable FLOYD, AMOS Primary Care Unavailable DYLON GUPTA Attending Unavailable FLOYD, AMOS Primary Care Unavailable GUPTA, DYLON Referring Unavailable FLOYD, AMOS Primary Care Unavailable MEMO CANAS Attending Unavailable MEMO CANAS Admitting Unavailable DYLON GUPTA Attending Unavailable FLOYD, AMOS Primary Care Unavailable GUPTA, DYLON Referring Unavailable BASIM JOEL Attending Unavailable FLOYD, AMOS Primary Care Unavailable Allergies Allergy Classification Reported Allergen(s) Allergy Type Date of Onset Reaction(s) Facility Penicillins (antibiotic) (3 sources) Penicillins Drug Allergy 3 [facility] Quinolones (antibiotic) (3 sources) Ciprofloxacin Drug Allergy 0 [facility] (20 sources) ciprofloxacin; Translations: [CIPROFLOXACIN] Drug Allergy 0 Rash, Other [facility] Repository (20 sources) Penicillins; Translations: [PENICILLINS] Propensity to adverse reactions (disorder) 3 Rash, Other [facility] Repository (1 source) ALLERGIES NOT ON FILE; Translations: [ALLERGIES NOT ON FILE] Propensity to adverse reactions (disorder) [facility] Repository (20 sources) amLODIPine; Translations: [AMLODIPINE] Drug Allergy [facility] Work Phone: Medications Current Medications Medication Drug Class(es) Dates Sig (Normalized) Sig (Original) apixaban 5 mg oral tablet (20 sources) Factor Xa Inhibitor Start: 08-29-2024 End: 10-24-2024 take 1 tablet by mouth twice daily Start: 08-09-2024 End: 08-29-2024 take 1 tablet by mouth twice daily apixaban (ELIQUIS) 5 mg (74 tabs) Indications: Acute deep vein thrombosis (DVT) of proximal vein of both lower extremities (HCC) Take 10 mg by mouth two times a day. 08/09/2024 08/29/2024 Discontinued Start: 08-09-2024 take 1 tablet by dima th twice daily apixaban (ELIQUIS) 5 mg (74 tabs) Indications: Acute deep vein thrombosis (DVT) of proximal vein of both lower extremities (HCC) Take 10 mg by mouth two times a day. 08/09/2024 Active Start: 08-09-2024 End: 09-17-2024 Apixaban 5 mg (74 tabs) tabl ets,dose pack Discontinued 0 PO .COMPLEX 74 0 August 09, 2024 12:00am September 17, 2024 3:58pm orally per package directions Start: 08-09-2024 Apixaban 5 mg (74 tabs) tablets,dose pack Active 0 PO .COMPLEX 74 0 August 09, 2024 12:00am orally per package directions Start: 08-09-2024 Apixaban 5 mg (74 tabs) tablets,dose pack Active 0 PO .COMPLEX 74 August 09, 2024 12:00am orally per package directions ascorbic acid 1000 mg oral tablet (20 sources) Vitamin C Start: 04-29-2024 take 1 g by mouth once daily Ascorbic Acid (Vitamin C) 1,000 mg capsule Active 1 g PO daily April 29, 2024 12:00am Start: 12-14-2023 take 1 tablet by dima th once daily ascorbic acid (Vitamin C) 1000 MG tablet Take 1,000 mg by mouth Nightly. 12/14/2023 Active cephalexin 500 mg oral capsule (20 sources) Cephalosporin Antibacterial Start: 08-31-2024 End: 09-07-2024 take 1 capsule by mouth three times daily cephALEXin (KEFLEX) 500 mg capsule Take 1 capsule by mouth three times a day for 7 days. 21 capsule 08/31/2024 09/07/2024 Active Start: 11-28-2023 End: 04-29-2024 take 1 capsule [...] Comment on above: Take 1 capsule by [facility] two times a day for 5 days. ciprofloxacin 500 mg oral tablet (1 source) [...] Discontinued 60 mg SC every 6 months 1 November 24, 2022 1:13pm November 24, 2022 2:28pm Osteoporosis Age-related osteoporosis without current pathological fracture Start: 07-17-2020 End: 11-25-2020 Denosumab (Prolia) 60 [...] months. Per Dr. Torsten Vann, endocrinology. Due estradiol 0.1 mg/ml vaginal cream (3 sources) Estrogen Start: estradiol (ESTRACE) 0.01 % (0.1 mg/gram) vaginal cream Indications: Recurrent UTI Use 1 g vaginally two times a week. 42.5 g 3 09/19/2024 Active furosemide 20 mg oral tablet (20 sources) Loop Diuretic Start: take 10 mg by mouth once daily in the morning as needed Start: 09-23-2024 End: 09-23-2025 furosemide (Lasix) 40 MG tab let Take 1 tablet (40 mg) by mouth daily. Take one pill daily for three days and then stop 30 tablet 09/23/2024 10/24/2024 Discontinued (Stop taking at discharge) hydrocortisone 10 mg oral tablet (20 sources) Corticosteroid Start: 10-24-2024 End: 10-24-2024 50 mg, IntraVENous, Once, On Madalyn 10/24/24 at 0800, For 1 dose Start: 10-23-2024 End: 10-24-2024 take 1 tablet by mouth every eight hours 10 mg, Oral, Every 8 hours, First dose on Mon10/23/24 at 2100 Start: 08-09-2024 End: 11-14-2024 take 1 tablet by mouth three times daily hydrocortisone (Cortef) 10 MG tablet Take 1 tablet (10 mg) by mouth 3 times daily. 10/24/2024 Active Start: 08-09-2024 take 4 tablets by mo uth three times daily, then take 3 tablets by mouth three times daily, then take 2 tablets by mouth three times daily Start: 07-24-2024 End: 10-24-2024 take 2 tablets by mouth in the morning, then take 1 tablet by mouth in the evening hydrocortisone (Cortef) 10 MG tablet TAKE 2 TABLETS BY MOUTH IN THE MORNING AND TAKE 1 TABLET AT 1 IN THE EVENING 07/24/2024 10/24/2024 Discontinued Start: 08-11-2023 End: 07-24-2024 take 3 tablets by mouth once daily [...] tablet Discontinued 10 mg PO DAILY@1800 30 0 April 08, 2020 1:00am August 04, 2022 [...] 04, 2020 1:28pm April 08, 2020 8:45pm addisons disease Start: 04-04-2020 End: 04-08-2020 take 20 mg by mouth three times daily at mealtime Hydrocortisone Discontinued 20 MG PO 3 TIMES DAILY WITH MEALS April 04, 2020 1:28pm April 08, 2020 8:45pm Start: 03-23-2020 End: 08-09-2024 take 2 tablets by mouth once daily Hydrocortisone 10 MG tablet Discontinued 20 mg PO DAILY@0600 60 0 April 08, 2020 1:00am August 04, 2022 1:26pm Comment on above: Take 2 tablets by mo uth every morning AND 1 tablet every evening. As directed per endo crinology. Take 10 mg by mouth two times a day. As directed per endocrinology. ipratropium bromide 0.042 mg/actuat metered dose nasal spray (13 sources) Anticholinergic Start: ipratropium bromide (ATROVENT) 42 mcg (0.06 %) nasal spray Indications: Chronic nonallergic rhinitis Use 2 sprays in the nose four times daily. 15 mL 2 07/24/2024 Active methenamine hippurate 1000 mg oral tablet (20 sources) Start: End: take 1 tablet by mouth once daily methenamine hippurate (Hiprex) 1 g tablet Take 1 g by mouth Nightly. 12/14/2023 Active 24 hr metoprolol succinate 50 mg extended release oral tablet (8 sources) beta-Adrenergic Debo Start: 025 End: 026 take 1 tablet by mouth once daily metoprolol succinate XL (Toprol-XL) 50 MG 24 hr tablet Take 1 tablet (50 mg) by mouth daily. Do not crush or chew. 30 tablet 11 10/31/2024 10/31/2025 Active nitrofurantoin, macrocrystals 25 mg / nitrofurantoin, monohydrate 75 mg oral capsule (3 sources) Nitrofuran Antibacterial Start: End: take 1 capsule by mouth twice daily nitrofurantoin monohydrate and macrocrystal (MACROBID) 100 mg capsule Take 1 capsule by mouth two times a day for 7 days. 14 capsule 08/19/2024 08/26/2024 Active nitroglycerin 0.4 mg sublingual tablet (20 sources) Nitrate Vasodilator Start: End: nitroglycerin (N itrostat) 0.4 MG SL tablet TAKE 1 TABLET BY MOUTH EVERY 5-15 MINUTES NEEDED for cardiac or chest pain Active Comment on above: Dissolve 1 tablet un tommy the tongue every 5 minutes as needed. Ondansetron (1 source) Serotonin-3 Receptor Antagonist Start: 05-24-19 take 1 tablet by mouth every eight hours as needed ondansetron (Zofran) tablet 4 mg Roflumilast (1 source) Phosphodiesterase 4 Inhibitor roflumilast (ZORYVE) 0.3 % cream Apply to affected area once daily. Active simvastatin 20 mg oral tablet (20 sources) HMG-CoA Reductase Inhibitor Start: 07-18-19 21 End: 10-30-19 25 take 1 tablet by mouth once daily simvastatin (Zocor) 20 MG tablet Take 20 mg by mouth Nightly. 12/07/2023 Active Start: 03-24-2016 End: 08-01-2019 take 1 tablet [...] acetaminophen 325 mg oral tablet (20 sources) Start: 10-23-2024 End: 10-24-2024 take 1 tablet by mouth every four hours as needed for pain 650 mg, Oral, Every 4 hours PRN, mild pain (1-3), Fever > 100.5 F (38 C), Starting on Mon10/23/24 at 0932, [facility], Maximum dose of acetaminophen is 4000 mg from all sources in 24 hours. Start: 05-24-2023 take 1 tablet by dima every four hours as needed acetaminophen (Tylenol) tablet 650 mg Start: 04-08-2020 take 2 tablets by mo uth every six hours as needed for pain Start: 04-08-2020 take 1000 mg by mout [...] uth every six hours as needed acetaminophen (Tylenol) 325 MG tablet Take 650 mg by mouth every 6 hours as needed. Active Comment on above: Take 650 mg by mouth every 6 hours as needed. acetaminophen 325 mg / HYDROcodone bitartrate 5 mg oral tablet (20 sources) Opioid Agonist Start: 03-30-2016 End: 05-21-2018 Hydrocodone-Acetaminophe n 1 TABLET tablet Discontinued 1 {tbl} PO EVERY 6 HOURS NEEDED as needed for Pain 10 0 March 30, 2016 1:00am May 21, 2018 [...] mg tablet Discontinued 2.5 mg PO daily 30 3 November 28, 2023 11:17am April 29, 2024 10:59am Start: 11-02-2023 End: 11-28-2023 take 1 tablet by mouth once daily Amlodipine 5 mg tablet Discontinued 5 mg PO daily 90 November 02, 2023 4:10pm November 28, 2023 11:18am Start: 08-11-2023 End: 11-02-2023 take 1 tablet by mouth once daily Amlodipine 10 mg tablet Discontinued 10 mg PO DAILY 90 October 11, 2023 11:42am November 02, 2023 3:26pm Start: 08-02-2023 End: 08-11-2023 take 1 tablet by mouth once daily Amlodipine 5 mg tablet Discontinued 5 mg PO DAILY 90 August 02, 2023 12:00am August 11, 2023 3:26pm Start: 03-03-2023 End: 08-02-2023 take 1 tablet by mouth once daily Amlodipine 2.5 mg tablet Discontinued 2.5 mg PO DAILY 90 March 03, 2023 10:21am August 02, 2023 1:13pm Start: 10-26-2022 End: 05-31-2023 take 2.5 mg by mouth once amLODIPine (NORVASC) 5 mg ta blet Take 2.5 mg by mouth once daily. [facility]. 10/26/2022 05/31/2023 Discontinued (Clinical Decision) Start: 01-25-2022 End: 03-03-2023 take 1 tablet by mouth once daily Amlodipine 5 mg tablet Discontinued 5 mg PO DAILY 90 May 30, 2022 12:10pm March 03, 2023 [...] mg tablet Discontinued 2.5 mg PO DAILY 90 July 12, 2021 11:42am December 02, 2021 1:39pm On Hold: Until SBP > 140 Start: 2021 End: 07-12-2021 take 1 tablet by mouth once daily Amlodipine (Norvasc) 2.5 mg tablet Discontinued 2.5 mg PO DAILY 30 2021 1:00am July 12, 2021 11:43am Start: 07-17-2020 End: 01-20-2021 take 1 tablet by mouth once daily Amlodipine 5 mg tablet Discontinued 5 mg PO DAILY 90 July 17, 2020 12:00am January 20, 2021 2:23pm End: 08-14-2024 take 2 tablets by mouth once daily amLODIPine (NORVASC) 5 mg tablet Take 10 mg by mouth once daily. 08/14/2024 Discontinued Comment on above: Take 1 tablet by dima th once daily. Take 2.5 mg by mouth once daily. Take 1 tablet by dima th once daily. [facility]. Take 2.5 mg by mouth once daily. [facility]. atorvastatin 20 mg oral tablet (20 sources) HMG-CoA Reductase Inhibitor Start: 10-23-2024 End: 10-24-2024 10 mg, Oral, Nightly, First dose on Mon10/23/24 at 2100, Substituted for simvastatin (Zocor). Start: 04-09-2020 End: 07-17-2020 take 1 tablet by mouth at bedtime Atorvastatin 10 MG tablet Discontinued 10 mg PO AT BEDTIME April 09, 2020 1:00am July 17, 2020 1:18pm cholesterol betamethasone 0.5 mg/ml topical cream (14 sources) Corticosteroid Start: 08-25-2021 End: 05-25-2022 betamethasone dipropionate (DIPROSONE) 0.05 % cream Apply [...] (10 sources) Corticosteroid, Vitamin D Analog Start: 11-25-2021 End: 05-25-2022 Betamethasone-Calcip otriene external suspension Apply 1 application to affected area once daily. For the areas of itching as needed. 60 g 3 11/25/2021 05/25/2022 Discontinued Comment on above: Apply 1 application to affected area once daily. For the areas of itching as needed. calcium carbonate 1250 mg / cholecalciferol 200 unt oral tablet (20 sources) Vitamin D Start: 03-24-2016 End: 04-10-2020 Calcium Carbonate-Vitamin D3 1 EACH tablet Discontinued 1 NMA PO DAILY April 04, 2020 1:00am April 10, 2020 10:17am supplement Start: 03-24-2016 End: 04-10-2020 Calcium Carbonate-Vitamin D3 Discontinued 1 EACH PO DAILY April 04, 2020 1:00am April 10, 2020 10:17am cholecalciferol 0.025 mg oral capsule (20 sources) Vitamin D Start: 01-25-2022 End: 05-23-2023 take 1 capsule by mouth once daily [...] 20, 2020 1:00am July 17, 2020 1:20pm supplement Start: 03-20-2020 End: 07-17-2020 take 1000 [IU] [...] Comment on above: Take 400 Units by [facility] once daily. cyproheptadine hydrochloride 4 mg oral tablet (20 sources) Start: 019 End: 020 take 1 tablet by mouth three times daily Cyproheptadine 4 mg tablet Discontinued 4 mg PO THREE TIMES A DAY 66 22 0 August 01, 2018 12:00am August 01, 2019 10:29am 2 ml dupilumab 150 mg/ml prefilled syringe (20 sources) Interleukin-4 Receptor alpha Antagonist Start: 021 End: 022 inject 300 mg by subcutaneous injection every other week dupilumab 300 mg/2 mL subcutaneous syringe (DUPIXENT) Indications: Atopic neurodermatitis Inject 300 mg SQ every 2 weeks 4 mL 11 11/11/2020 12/06/2021 Discontinued Start: 04-02-2020 End: 06-12-2023 inject 300 mg by subcutaneous injection every other week Dupilumab 300 MG/2 ML pen injector Discontinued 300 mg SQ .[id number] April 02, 2020 1:00am April 04, 2020 10:48am sinus Comment on above: Inject 300 mg SQ gwen ry 2 weeks .[id number] Dupilumab (16 sources) Start: 4 End: inject 200 mg by subcutaneous injection [...] 12:00am 200 mg subcutaneously Every other week; 0.4 ml enoxaparin sodium 100 mg/ml prefilled syringe (5 sources) Low Molecular Weight Heparin Start: 10-17-2024 End: 10-24-2024 inject 0.4 mL by subcutaneous injection twice daily enoxaparin (Lovenox) 40 MG/0.4ML solution prefilled syringe Inject 0.4 mL (40 mg) under the skin 2 times daily. 6 each 1 10/17/2024 10/24/2024 Discontinued (Stop taking at discharge) fludrocortisone acetate 0.1 mg oral tablet (20 sources) Start: 04-23-2020 End: 07-17-2020 take 1 capsule by mouth once daily Florinef capsule Discontinued 0.1 mg PO DAILY April 23, 2020 1:00am July 17, 2020 1:19pm steroid Start: 04-04-2020 End: 04-08-2020 take 1 tablet by mouth once daily Fludrocortisone 0.1 MG tablet Discontinued 0.1 mg PO DAILY@0800 April 04, 2020 1:28pm April 08, 2020 8:46pm Check with primary doctor fluticasone propionate 0.05 mg/actuat metered dose nasal [...] RELIEF) 50 mcg/actuation nasal spray Use 1 Alligator in each nostril once daily. 0 07/20/2021 Discontinued Comment on above: Use 1 Alligator in each nostril once daily. Use 2 Sprays in each nostril once daily. Rinse mouth after use. gabapentin 300 mg oral capsule (20 sources) Anti-epileptic Agent Start: 03-20-2020 End: 04-17-2020 take 1 capsule by mouth once daily Gabapentin 300 MG capsule Discontinued 300 mg PO DAILY March 20, 2020 1:00am April 17, 2020 3:15pm nerve pain Start: 03-20-2020 End: 04-17-2020 take 2 capsules by mouth at bedtime Gabapentin 300 MG capsule Discontinued 600 mg PO AT BEDTIME March 20, 2020 1:00am April 17, 2020 3:15pm nerve pain Start: 03-20-2020 End: 04-17-2020 take 600 mg [...] th at bedtime as needed for itching/rash. iopamidol (Isovue-370) 76 % injection 100 mL (2 sources) Start: 09-19-2024 End: 09-19-2024 take 100 mL intravenously once as needed 100 mL, IntraVENous, IMG once PRN, contrast, Starting on Madalyn 09/19/24 at 1326, For 1 dose 24 hr isosorbide mononitrate 30 mg extended [...] 2020 1:19pm L.Acidoph,Paracasei,B.Animal is 1 EACH capsule (13 sources) Start: 03-24-2016 End: 07-17-2020 take 1 capsule by mouth once daily L.Acidoph,Paracasei,B.Animalis 1 EACH capsule Discontinued 1 NMA PO DAILY March 24, 2016 1:00am July 17, 2020 1:19pm stomach Start: 03-24-2016 End: 07-17-2020 take 1 capsule by mouth once daily L.Acidoph,Paracasei,B.Animalis 1 EACH ca psule Discontinued 1 NMA PO DAILY March 24, 2016 1:00am July 17, 2020 1:19pm levocetirizine dihydrochloride 5 mg oral tablet (20 sources) Histamine-1 Receptor Antagonist Start: 08-25-2021 End: 05-31-2023 take 1 tablet by mouth once daily Levocetirizine 5 mg tablet Discontinued 5 mg PO DAILY November 16, 2021 12:00am May 23, 2023 8:17pm Comment on above: Take 1 tablet by dima th once daily. lisinopril 5 mg oral tablet (20 sources) Angiotensin Converting Enzyme Inhibitor Start: 10-24-2024 End: 10-24-2024 Start: 12-19-2023 End: 08-14-2024 take 1 tablet by mouth once daily Lisinopril 5 mg tablet Discontinued 5 mg PO daily July 23, 2024 8:15am August 09, 2024 2:53pm losartan potassium 50 mg oral tablet (20 sources) Angiotensin 2 Receptor Debo Start: 01-20-2021 End: 12-02-2021 Losartan 50 mg [...] 1 tablet by dima th once daily. meclizine hydrochloride 25 mg oral [...] 1 APPLIC ointment Discontinued 1 NMA TOPICAL 0600,0 0 April 08, 2020 1:00am July 17, 2020 1:19pm skin issues Please contact the information source for Protocol details. Start: 04-08-2020 End: 07-17-2020 Menthol-Zinc Oxide Discontin ued 1 APPLIC TOPICAL 06,2199April 08, 2020 1:00am July 17, 2020 1:19pm skin issues methotrexate 2.5 mg oral tablet (20 sources) Folate Analog Metabolic Inhibitor Start: 08-01-2018 End: 08-01-2019 Methotrexate Sodium 2.5 mg tablet Discontinued 15 mg PO EVERY WEEK 24 August 01, 2018 12:00am August 01, 2019 10:29am Start: 08-01-2018 End: 08-01-2019 take 15 mg by mouth every week Methotrexate Sodium Dis continued 15 MG PO EVERY WEEK 24 August 01, 2018 12:00am August 01, 2019 [...] mg PO THREE TIMES A DAY 180 0 March 22, 2020 1:00am April 02, 2020 4:47pm Comment on above: Take one tablet by m outh twice a day four hours apart. Avoid laying down flat for at least 4 hours after taking. Do not take less than four hours before bedtime mupirocin 0.02 mg/mg topical ointment (2 sources) RNA Synthetase Inhibitor Antibacterial Start: 10-24-19 End: 10-25-19 1 Application, Nasal, 2 times daily, First dose on Mon10/23/24 at 0945, For 5 days, Recovery & On Unit, Indications: MRSA Nasal Decolonization pantoprazole 40 mg delayed release oral tablet (20 sources) Proton Pump Inhibitor Start: 06-14-19 End: 07-25-19 take 1 tablet by mouth once daily in the morning pantoprazole DR (PROTONIX) 40 mg tablet Take 1 tablet by mouth daily at 6 am. 30 tablet 06/14/2023 07/24/2024 Discontinued perflutren protein A microsphere (Optison) 3 mL in sodium chloride (PF) 0.9 % 10 mL IV (2 sources) Start: 10-24-19 End: 10-25-19 0-10 mL, IntraVENous, IMG once PRN, other, Suboptimal echo image, Starting on Mon10/23/24 at 0932, For 1 dose, CV Procedural Medications, Administer via slow IVP for suboptimal echocardiogram enhancement. May administer as divided doses to reach optimal image enhancement predniSONE 1 mg oral tablet (20 sources) Start: 03-20-19 End: 04-04-19 take 2 tablets by mouth at bedtime Prednisone 1 MG tablet Discontinued 2 mg PO AT BEDTIME March 20, 2020 1:00am April 04, 2020 10:46am steroid Start: 03-20-2020 End: 04-04-2020 take 2 mg [...] 22, 2020 12:00am January 20, 2021 2:23pm sulfamethoxazole 800 mg / trimethoprim 160 mg oral tablet (6 sources) Dihydrofolate Reductase Inhibitor Antibacterial, Sulfonamide Antimicrobial Start: 08-09-2024 End: 11-14-2024 Sulfamethoxazole-Trimethopri m (Bactrim Ds) 800-160 mg tablet Discontinued 1 {tbl} PO TWICE A DAY 10 0 August 09, 2024 12:00am November 14, 2024 9:06am tralokinumab-ldrm (ADBRY) 150 mg/mL injection (7 sources) Start: 07-28-2022 End: 10-26-2022 tralokinumab-ldrm (ADBRY) 15 0 mg/mL injection Inject 4 syringes subcutaneously at week 0, then Inject 2 syringes subcutaneously at week 2, then inject 2 syringes subcutaneously every other week after this. 6 mL 07/28/2022 10/26/2022 Discontinued (Cost of medication) Start: 07-28-2022 tralokinumab-l drm (ADBRY) 150 mg/mL injection Inject 4 syringes subcutaneously at week 0, then Inject 2 syringes subcutaneously at week 2, then inject 2 syringes subcutaneously every other week after this. 6 mL 07/28/2022 Active Start: 07-22-2022 tralokinumab-l drm (ADBRY) 150 mg/mL injection Inject 4 syringes subcutaneously at week 0, then Inject 2 syringes subcutaneously at week 2, then inject 2 syringes subcutaneously every other week after this. 6 mL 07/22/2022 Active Start: 07-12-2022 End: 07-22-2022 tralokinumab-ldrm [...] Active Comment on above: Inject 4 syringes marcos bcutaneously at week 0, then Inject 2 syringes subcutaneously at week 2, then inject 2 syringes subcutaneously every other week after this. traMADol hydrochloride 50 mg oral tablet (4 sources) Opioid Agonist Start: 025 End: 025 take 1 tablet by mouth three times daily as needed for pain traMADol (ULTRAM) 50 mg tablet Indications: Acute deep vein thrombosis (DVT) of proximal vein of both lower extremities (HCC) Take 1 tablet by mouth three times a day as needed for pain for up to 5 days. 15 tablet 08/14/2024 08/19/2024 triamcinolone acetonide 1 mg/ml topical cream (20 sources) Corticosteroid Start: 021 End: 023 triamcinolone acetonide (KENALOG) 0.1 % cream Indications: [...] 9:32am Vitamin B Complex 1 EACH capsule (13 sources) Start: 03-24-2016 End: 08-01-2018 Vitamin B [...] 20, 2020 1:00am July 17, 2020 1:20pm supplement warfarin sodium 2.5 mg oral tablet (20 sources) Vitamin K Antagonist Start: 04-02-2020 End: 04-04-2020 Warfarin 4 MG tablet Discontinued 4 mg PO April 02, 2020 1:00am April 04, 2020 10:47am blood thinner Start: 03-23-2020 End: 10-17-2024 take 1 tablet by mouth once daily Warfarin 2.5 mg tablet Discontinued 2.5 mg PO DAILY@1700 Protocol: Adjustment Start Date: Monday06/21/24INR Value: 2.0INR Date: 06/21/24Recheck Date: 07/19/24 Condition: Monday Dose/Route: 2.5 mg Instructions: 1 x 2.5 mg tablet Condition: Monday Dose/Route: 5 mg Instructions: 2 x 2.5 mg tablets Condition: Monday Dose/Route: 2.5 mg Instructions: 1 x 2.5 mg tablet Condition: Monday Dose/Route: 2.5 mg Instructions: 1 x 2.5 mg tablet Condition: Dose/Route: 2.5 mg Instructions: 1 x 2.5 mg tablet Condition: Monday Dose/Route: 2.5 mg Instructions: 1 x 2.5 mg tablet Condition: Monday Dose/Route: 2.5 mg Instructions: 1 x 2.5 mg tablet 120 April 22, 2024 11:47am August 09, 2024 2:50pm daily or as directed Please contact the information source for Protocol details. Start: 03-20-2020 End: 03-22-2020 Warfarin 4 MG tablet Discont inued 4 mg PO March 20, 2020 1:00am March 22, 2020 11:49am blood thinner Start: 11-11-2019 End: 04-04-2020 take 1 tablet by mouth once Warfarin 3 MG tablet Disco ntinued 3 mg PO every Monday, , , Mon Protocol: Adjustment Start Date: Monday02/28/20INR Value: 2.20INR Date: 02/28/20Recheck Date: 03/20/20 Condition: Monday Dose/Route: 3 mg Instructions: 1 x 3 mg tablet Condition: Monday Dose/Route: 3 mg Instructions: 1 x 3 mg tablet Condition: Monday Dose/Route: 4 mg Instructions: 1 x 4 mg tablet Condition: Monday Dose/Route: 4 mg Instructions: 1 x 4 mg tablet Condition: Dose/Route: 4 mg Instructions: 1 x 4 mg tablet Condition: Monday Dose/Route: 4 mg Instructions: 1 x 4 mg tablet Condition: Monday Dose/Route: 3 mg Instructions: 1 x 3 mg tablet April 02, 2020 4:47pm April 04, 2020 10:46am blood thinner Please contact the information source for Protocol details. Start: 08-03-2018 End: 11-11-2019 take 1 tablet by mouth four times weekly, then take 4 mg by mouth every month Warfarin (Coumadin) 3 mg tablet Discontinued 3 mg PO 4 times per week Protocol: Patient Instructed to take:warfarin 3 mg (1 Tab) on MARCOS, MO, TU, SAwarfarin 4 mg (1 Tab) on WE, , FR 30 July 09, 2019 1:13pm November 11, 2019 1:06pm Please contact the information source for Protocol details. Start: 11-07-2013 End: 11-11-2019 Warfarin 4 mg tablet Discont inued 4 mg PO SUMOWEFR Protocol: Patient Instructed to take:warfarin 3 mg (1 Tab) on MARCOS, MO, TU, SAwarfarin 4 mg (1 Tab) on , , FR 30 July 09, 2019 1:13pm November 11, 2019 1:06pm Please contact the information source for Protocol details. Start: 11-07-2013 End: 11-11-2019 Warfarin 4 mg tablet Discont inued 4 mg PO SUMOWEFR 19 01July 09, 2019 1:13pm November 11, 2019 1:06pm Please contact the information source for Protocol details. Comment on above: Take 1 tablet by dima th once daily. Problems Active Problems Problem Classification Problem Date Documented Da te Episodic/Chronic Allergic reactions (20 sources) Atopic neurodermatitis; Translations: [Atopic neurodermatitis] Onset: 0 11-18-2019 Chronic Asthma (20 sources) Asthma; Translations: [Unspecified asthma, uncomplicated] Onset: 6 Resolved: 9 05-24-2023 Chronic Calculus of urinary tract (4 sources) History of calculus of kidney; Translations: [Personal history of urinary calculi] Onset: 5 09-20-2024 Episodic Cancer of kidney and renal pelvis (20 sources) Primary malignant neoplasm of kidney; Translations: [Malignant neoplasm of unspecified kidney, except renal pelvis] Onset: 1 09-02-2024 Chronic Cancer of kidney and renal pelvis (20 sources) H/O: malignant neoplasm; Translations: [Personal history of other malignant neoplasm of kidney] Onset: 4 04-10-2020 Episodic 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 (20 sources) 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; Translations: [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, unspecified] Onset: 0 Resolved: 1 07-15-2021 Chronic 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 (7 sources) 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; Translations: [Hypertensive kidney disease with stage 3b chronic kidney disease (HCC)] Onset: 2 Congestive heart failure; nonhypertensive (20 sources) Acute systolic heart failure; Translations: [Acute systolic (congestive) heart failure] Onset: 5 09-19-2024 Chronic Coronary atherosclerosis and other heart disease (20 sources) History of non-ST segment elevation myocardial infarction; Translations: [Old myocardial infarction] Onset: 0 Chronic Comment on above: possible coronary em bolism Diabetes mellitus with complications (2 sources) Type 2 diabetes mellitus with diabetic nephropathy; Translations: [Type 2 diabetes mellitus with diabetic nephropathy] Onset: 5 Chronic Diseases of white blood cells (20 sources) Leukocytosis; Translations: [Elevated white blood cell count, unspecified] Onset: 5 08-07-2024 Chronic Disorders of lipid metabolism (20 sources) Hyperlipidemia; Translations: [Hyperlipidemia, unspecified] Onset: 5 Chronic Esophageal disorders (20 sources) Gastroesophageal reflux disease; Translations: [Gastro-esophageal reflux disease without esophagitis] Onset: 4 01-20-2021 Chronic Essential hypertension (20 sources) Essential hypertension; Translations: [Essential (primary) hypertension] Onset: 1 Chronic Genitourinary symptoms and ill-defined conditions (3 sources) Increased frequency of urination; Translations: [Frequency of micturition] Onset: 5 05-24-2023 Episodic Heart valve disorders (20 sources) Aortic valve stenosis; Translations: [Nonrheumatic aortic (valve) stenosis] Onset: 3 08-04-2022 Chronic Hypertension with complications and secondary hypertension (20 sources) Hypertensive renal disease; Translations: [Hypertensive chronic kidney disease with stage 1 through stage 4 chronic kidney disease, or unspecified chronic kidney disease] Onset: 1 07-15-2021 Chronic Nonmalignant breast conditions (1 source) Mastodynia; Translations: [Mastodynia] Episodic Nutritional deficiencies (1 source) Vitamin D deficiency, unspecified; Translations: [Avitaminosis D] Onset: 5 Chronic Osteoporosis (20 sources) Osteoporosis; Translations: [Age-related osteoporosis without current pathological fracture] Onset: 4 Chronic Other aftercare (20 sources) Long-term current use of anticoagulant; 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] 11-26-2021 Episodic Other aftercare (1 source) Anticoagulant effect; 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] Episodic Other circulatory disease (20 sources) Orthostatic hypotension; Translations: [Orthostatic hypotension] 11-11-2019 Episodic Other circulatory disease (20 sources) Hypotensive episode; Translations: [Hypotension, unspecified] 04-10-2020 Episodic Other circulatory disease (17 sources) Transient hypotension; Translations: [Hypotension, unspecified] 05-15-2023 Episodic Other circulatory disease (1 source) Other hypotension; Translations: [Other specified hypotension] Onset: 5 Episodic Other connective tissue disease (2 sources) Pain in right foot; Translations: [Pain in right foot] 11-08-2022 Episodic Other connective tissue disease (1 source) Muscle pain; Translations: [Myalgia, unspecified site] 05-24-2023 Episodic Other diseases of kidney and ureters (1 source) Disorder of kidney and ureter, unspecified; Translations: [Disorder of kidney and ureter, unspecified] Onset: 5 Episodic Other endocrine disorders (20 sources) Moris's disease; 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] Onset: 3 12-02-2021 Chronic Other endocrine disorders (20 sources) Hypoadrenalism; Translations: [Unspecified adrenocortical insufficiency] Onset: 4 Resolved: 5 Chronic Other endocrine disorders (17 sources) Primary adrenocortical insufficiency; Translations: [Glucocorticoid deficiency] Onset: 5 Chronic Other endocrine disorders (1 source) Unspecified adrenocortical insufficiency; Translations: [Adrenal insufficiency (HCC)] Onset: 4 Chronic Other endocrine disorders (1 source) Drug-induced adrenocortical insufficiency; 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)] Onset: 4 Chronic Other eye disorders (1 source) Subconjunctival hemorrhage of left eye; Translations: [Conjunctival hemorrhage, left eye] 07-24-2024 Episodic Other inflammatory condition of skin (20 sources) Psoriasis; Translations: [Psoriasis, unspecified] Onset: 5 09-02-2024 Chronic Other nervous system disorders (20 sources) Disorder of autonomic nervous system; Translations: [Disorder of the autonomic nervous system, unspecified] Onset: 4 02-17-2015 Chronic Other nutritional; endocrine; and metabolic disorders (20 sources) Hypercalcemia; Translations: [Hypercalcemia] Onset: 0 Resolved: 4 04-22-2020 Chronic Other nutritional; endocrine; and metabolic disorders (2 sources) Hypercalcemia; Translations: [Hypercalcemia] Onset: 4 Chronic Other nutritional; endocrine; and metabolic disorders (20 sources) Hypervitaminosis D; Translations: [Hypervitaminosis D] Onset: 5 09-02-2024 Chronic Other screening for suspected conditions (not mental disorders or infectious disease) (5 sources) Imaging result abnormal; Translations: [Abnormal findings on diagnostic imaging of other specified body structures] Onset: 4 08-17-2023 Chronic Other upper respiratory disease (20 sources) Chronic rhinitis; Translations: [Chronic rhinitis] Onset: 5 03-20-2014 Chronic Other upper respiratory disease (1 source) Chronic rhinitis; Translations: [Chronic nonallergic rhinitis] Onset: 5 Chronic Phlebitis; thrombophlebitis and thromboembolism (20 sources) Recurrent deep vein thrombosis; Translations: [Acute embolism and thrombosis of unspecified deep veins of unspecified lower extremity] Onset: 0 Resolved: 4 07-15-2021 Episodic Prolapse of female genital organs (20 sources) Midline cystocele; Translations: [Cystocele, midline] Onset: 8 Resolved: 8 02-27-2017 Chronic Pulmonary heart disease (20 sources) H/O: pulmonary embolus; Translations: [Personal history of pulmonary embolism] Onset: 3 Episodic Residual codes; unclassified (1 source) Confusional state; Translations: [Disorientation, unspecified] 05-23-2023 Episodic Screening and history of mental health and substance abuse codes (2 sources) Patient encounter status; Translations: [Encounter for screening for depression] 01-23-2024 Episodic Syncope (20 sources) Syncope and collapse; Translations: [Syncope and collapse] Onset: 5 11-21-2019 Episodic Thyroid disorders (20 sources) Non-toxic multinodular goiter; Translations: [Nontoxic multinodular goiter] Onset: 8 Resolved: 8 09-23-2017 Chronic Unclassified (1 source) Unknown / UNK(Unknown) Onset: 7 Unclassified (1 source) Radiology Review Onset: 4 Unclassified (1 source) Z95.2 - Presence of prosthetic heart valve Past or Other Problems Problem Classification Problem Date Documented Da te Episodic/Chronic Abdominal pain (20 sources) Upper abdominal pain; Translations: [Upper abdominal pain, unspecified] Onset: 7 Resolved: 8 02-27-2017 Episodic Acute and unspecified renal failure (20 sources) Injury of kidney; Translations: [Acute kidney failure, unspecified] Onset: 1 Episodic Acute myocardial infarction (20 sources) Non-ST elevation (NSTEMI) myocardial infarction; Translations: [Myocardial infarction] Onset: 7 Resolved: 4 06-09-2023 Chronic Allergic reactions (20 sources) Contact dermatitis; Translations: [Unspecified contact dermatitis, unspecified cause] Resolved: 9 07-18-2008 Episodic Biliary tract disease (20 sources) Gallstone; Translations: [Calculus of gallbladder without cholecystitis without obstruction] Onset: 7 Resolved: 7 08-24-2016 Episodic Cancer of stomach (20 sources) Gastrointestinal stromal tumor of stomach; Translations: [Gastrointestinal stromal tumor of stomach] Onset: 0 Resolved: 0 12-30-2009 Chronic Cardiac dysrhythmias (20 sources) Bradycardia; Translations: [Bradycardia, unspecified] Onset: 5 08-08-2024 Episodic Conditions associated with dizziness or vertigo (20 sources) Dizziness; Translations: [Dizziness and giddiness] Onset: 5 03-03-2023 Episodic Deficiency and other anemia (20 sources) Anemia; Translations: [Anemia, unspecified] Onset: 0 Resolved: 3 09-09-2012 Episodic Fluid and electrolyte disorders (20 sources) Hypokalemia; Translations: [Hypokalemia] Onset: 0 Resolved: 0 05-14-2009 Episodic Fracture of lower limb (20 sources) Closed fracture of right foot; Translations: [Unspecified fracture of right foot, initial encounter for closed fracture] Onset: 4 Resolved: 5 11-08-2022 Episodic Immunizations and screening for infectious disease (10 sources) Vaccination needed; Translations: [Encounter for immunization] Onset: 5 Episodic Intracranial injury (20 sources) Closed injury of head; Translations: [Unspecified intracranial injury with loss of consciousness of unspecified duration, initial encounter] Onset: 5 11-21-2019 Episodic Malaise and fatigue (20 sources) Asthenia; Translations: [Weakness] Onset: 4 Resolved: 5 04-10-2020 Episodic Noninfectious gastroenteritis (20 sources) Collagenous colitis; Translations: [Collagenous colitis] Onset: 1 Resolved: 2 03-03-2011 Chronic Noninfectious gastroenteritis (20 sources) Chronic diarrhea; Translations: [Noninfective gastroenteritis and colitis, unspecified] Onset: 1 Resolved: 2 03-03-2011 Episodic Nonspecific chest pain (20 sources) Chest pain; Translations: [Chest pain, unspecified] Onset: 5 Episodic Open wounds of head; neck; and trunk (20 sources) Laceration of forehead; Translations: [Laceration without foreign body of other part of head, initial encounter] Onset: 5 11-12-2019 Episodic Other aftercare (3 sources) 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; Translations: [Long-term (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] Onset: 5 Episodic Other and unspecified benign neoplasm (20 sources) Benign neoplasm of colon; Translations: [Benign neoplasm of colon, unspecified] Onset: 6 Resolved: 4 12-11-2009 Episodic Other and unspecified benign neoplasm (20 sources) History of polyp of colon; Translations: [Personal history of colonic polyps] Onset: 7 Resolved: 8 02-27-2017 Episodic Other bone disease and musculoskeletal deformities (20 sources) Osteopenia; Translations: [Other specified disorders of bone density and structure, unspecified site] Onset: 4 Resolved: 4 03-13-2019 Episodic Other circulatory disease (20 sources) Low blood pressure; Translations: [Hypotension, unspecified] Onset: 5 Episodic Other circulatory disease (8 sources) Hypotension, unspecified; Translations: [Hypotension, unspecified] Onset: 5 Episodic Other connective tissue disease (20 sources) Recurrent falls ; Translations: [Repeated falls] Onset: 5 04-18-2020 Episodic Other connective tissue disease (20 sources) Muscle weakness; Translations: [Muscle weakness (generalized)] Onset: 1 Resolved: 4 05-27-2020 Episodic Other diseases of kidney and ureters (20 sources) Renal impairment; Translations: [Disorder resulting from impaired renal tubular function, unspecified] Onset: 6 Resolved: 9 07-18-2008 Chronic Other diseases of kidney and ureters (20 sources) Renal mass; Translations: [Other specified disorders of kidney and ureter] Onset: 0 Resolved: 0 08-26-2009 Chronic Other diseases of kidney and ureters (20 sources) Renal impairment; Translations: [Disorder of kidney and ureter, unspecified] Onset: 5 09-19-2024 Episodic Other eye disorders (1 source) Conjunctival hemorrhage, left eye; Translations: [Subconjunctival hemorrhage of left eye] Onset: 5 Episodic Other gastrointestinal disorders (20 sources) Dark stools; Translations: [Other fecal abnormalities] Onset: 5 08-07-2024 Episodic Other gastrointestinal disorders (1 source) Other fecal abnormalities; Translations: [Other fecal abnormalities] Onset: 5 Episodic Other hematologic conditions (20 sources) Raised cardiac enzyme or marker; Translations: [Other specified abnormalities of plasma proteins] Onset: 0 Resolved: 0 Episodic Other hematologic conditions (8 sources) Other specified abnormalities of plasma proteins; Translations: [Other abnormal blood chemistry] Onset: 5 Episodic Other lower respiratory disease (20 sources) Nodule of lung; Translations: [Solitary pulmonary nodule] Onset: 4 Resolved: 5 07-05-2023 Episodic Other lower respiratory disease (1 source) Solitary pulmonary nodule; Translations: [Nodule of lower lobe of right lung] Onset: 4 Episodic Other nervous system disorders (20 sources) Abnormal gait; Translations: [Unspecified abnormalities of gait and mobility] Onset: 4 Resolved: 4 03-28-2023 Episodic Other non-traumatic joint disorders (20 sources) Hip pain; Translations: [Pain in unspecified hip] Onset: 3 Resolved: 4 Episodic Other nutritional; endocrine; and metabolic disorders (20 sources) Body mass index 25-29 - overweight; Translations: [Overweight] Onset: 5 08-07-2024 Episodic Other nutritional; endocrine; and metabolic disorders (1 source) Overweight; Translations: [Overweight] Onset: 5 Episodic Other screening for suspected conditions (not mental disorders or infectious disease) (20 sources) INR raised; Translations: [Abnormal coagulation profile] Onset: 5 Episodic Pathological fracture (20 sources) Pathological fracture due to osteoporosis; Translations: [Age-related osteoporosis with current pathological fracture, unspecified site, subsequent encounter for fracture with routine healing] Onset: 3 01-19-2023 Episodic Residual codes; unclassified (20 sources) Acquired absence of organ; Translations: [Acquired absence of other organs] Onset: 1 09-02-2024 Episodic Residual codes; unclassified (20 sources) Kidney donor; Translations: [Kidney donors] Onset: 5 09-02-2024 Episodic Septicemia (except in labor) (20 sources) Sepsis; Translations: [Sepsis, unspecified organism] Onset: 5 11-11-2019 Episodic Unclassified (20 sources) SUMMARY Onset: 0 Resolved: 0 08-26-2009 Unclassified (3 sources) Severe aortic stenosis 10-24-2024 Urinary tract infections (20 sources) Acute pyelonephritis; Translations: [Acute pyelonephritis] Onset: 1 11-11-2019 Episodic Results Test Name Value Interpretation Reference Range Facility [facility] 025 Kidney and Bladder [facility] Imaging Services [address] [place], [place] [address] Kidney and Bladder MR#: [id number] Acct: [id number] Name: LINDA PERALTA Rep #: [id number] : 1945 F 79 From: Betsy Bocanegra MD PCP: Dr. Amos Floyd MD Status: [facility] CL Study: Kidney and Bladder Date of Exam: 12/10/24 Exam# [id number] Ordering Dr: Jennifer Tarango DO PROCEDURE: KIDNEY AND BLADDER 12/10/2024 REASON FOR EXAM: TYPE 2 DIABETES MELLITUS WITH DIABETIC NEPHROPATHY TECHNIQUE: Procedure Code: USKI Modality: US Procedure: KIDNEY AND BLADDER COMPARISON: CT abdomen and pelvis 08/07/2024 FINDINGS: RIGHT Kidney Size: 11.0 x 3.9 x 3.7 cm Volume: 17 mL Parenchymal Thickness: Within normal limits Cortical Thickness (if discernible): 14 mm (>6mm is normal) Multiple simple kidney cysts with the largest measures 1.9 x 1.6 x 2.4 cm. No nephrolithiasis. LEFT Kidney Absent. BLADDER Decompressed measures 17 mL in volume prevoid volume 3.46 cc. US/Kidney and Bladder IMPRESSION: No right hydronephrosis. Reading Location: [facility] CC: Dr. Jennifer Tarango DO; Dr. 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 Normal [facility] Anion gap in Serum or Plasma Ordered By: Jennifer Tarango on 12-03-2024 Anion gap [Moles/Vol] 10 mmol/L 5-15 [facility] BUN/creatinine ratioOrdered By: Jennifer Tarango on 12-03-2024 Urea nitrogen/Creatinine [Mass ratio] 22.8 mg/mg High - [facility] Basic Metabolic Profile (BMP )on 12-03-2024 BUN/CRE 22.6 RATIO High 12-09 [facility] Comment on above: Performed By: #### L 9200.0000 #### [facility] Laboratory [address] [place], [address] CO2 [Moles/Vol] 22.9 mmol/L Normal 21.0-32.0 [facility] Comment on above: Performed By: #### L 9200.0000 #### [facility] [address] [place], [address] Creatinine [Mass/Vol] 1.72 mg/dL High 0.70-1.20 [facility] Comment on above: Performed By: #### L 9200.0000 #### [facility] [address] [place], [address] GAP 11 Normal 07-04 [facility] Comment on above: Performed By: #### L 9200.0000 #### [facility] [address] [place], [address] Carbon dioxide, total [Moles /volume] in Central venous bloodOrdered By: Jennifer Tarango on 12-03-2024 CO2 [Moles/Vol] 23.5 mmol/L 21.0-32.0 [facility] Chloride assayOrdered By: Dallas Tarango on 12-03-2024 Chloride [Moles/Vol] 108 mmol/L 98-108 [facility] Glomerular filtration rate ( GFR) estimation/1.73 sq m using serum, plasma, or whole bOrdered By: Jennifer Tarango on 12-03-2024 GFR/1.73 sq M.predicted among non-blacks MDRD (S/P/Bld) [Vol rate/Area] 30 mL/min/{1.73_m2} Low >60 [facility] Comment on above: mL/min/1.73m2 CKD-EP I Creatinine Equation (2020) Potassium measurement (mass/ volume)Ordered By: Jennifer Tarango on 12-03-2024 Potassium (Unsp spec) [Mass/Vol] 4.6 mmol/L 3.3-5.1 [facility] Renal Profileon 12-03-2024 Albumin [Mass/Vol] 3.9 g/dL Normal 3.4-4.8 [facility] Comment on above: Performed By: #### L 9200.0000 #### [facility] [address] [place], [address] BUN/CRE 22.8 RATIO High 10- [facility] Comment on above: Performed By: #### L 9200.0000 #### [facility] [address] [place], [address] Calcium [Mass/Vol] 9.4 mg/dL Normal 7.6-11.0 [facility] Comment on above: Performed By: #### L 9200.0000 #### [facility] [address] [place], [address] Chloride [Moles/Vol] 108 mmol/L Normal 98-108 [facility] Comment on above: Performed By: #### L 9200.0000 #### [facility] [address] [place], [address] CO2 [Moles/Vol] 23.5 mmol/L Normal 21.0-32.0 [facility] Comment on above: Performed By: #### L 9200.0000 #### [facility] [address] [place], [address] Creatinine [Mass/Vol] 1.69 mg/dL High 0.70-1.20 [facility] Comment on above: Performed By: #### L 9200.0000 #### [facility] [address] [place], [address] GAP 10 Normal 5-15 [facility] Comment on above: Performed By: #### L 9200.0000 #### [facility] [address] [place], [address] GFR/1.73 sq M.predicted among non-blacks MDRD (S/P/Bld) [Vol rate/Area] 30 mL/min/{1.73_m2} Low >60 [facility] Comment on above: Result Comment: mL/m in/1.73m2 CKD-EPI Creatinine Equation (2020) Performed By: #### L 9200.0000 #### [facility] [address] [place], [address] Glucose [Mass/Vol] 83 mg/dL Normal 70-99 [facility] Comment on above: Performed By: #### L 9200.0000 #### [facility] [address] [place], [address] Phosphate [Mass/Vol] 2.6 mg/dL Low 2.7-4.5 [facility] Comment on above: Performed By: #### L 9200.0000 #### [facility] [address] [place], [address] Potassium [Moles/Vol] 4.6 mmol/L Normal 3.3-5.1 [facility] Comment on above: Performed By: #### L 9200.0000 #### [facility] [address] [place], [address] Sodium [Moles/Vol] 142 mmol/L Normal 133-145 [facility] Comment on above: Performed By: #### L 9200.0000 #### [facility] [address] [place], [place], [id number] Urea nitrogen [Mass/Vol] 39 mg/dL High 06-08 [facility] Comment on above: Performed By: #### L 9200.0000 #### [facility] [address] [place], [place], [id number] Serum creatinine measurement (mass/volume)Ordered By: Jennifer Tarango on 12-03-2024 Creatinine [Mass/Vol] 1.69 mg/dL High 0.70-1.20 [facility] Serum glucose measurement (m ass/volume)Ordered By: Jennifer Tarango on 12-03-2024 Glucose [Mass/Vol] 83 mg/dL 70-99 [facility] Serum or plasma albumin scott urement (mass/volume)Ordered By: Jennifer Tarango on 12-03-2024 Albumin [Mass/Vol] 3.9 g/dL 3.4-4.8 [facility] Serum or plasma calcium scott urement (mass/volume)Ordered By: Jennifer Tarango on 12-03-2024 Calcium [Mass/Vol] 9.4 mg/dL 7.6-11.0 [facility] Serum or plasma urea nitroge n measurement (mass/volume)Ordered By: Jennifer Tarango on 12-03-2024 Urea nitrogen [Mass/Vol] 39 mg/dL High 06-08 [facility] Sodium levelOrdered By: Dustin Tarango on 12-03-2024 Sodium [Moles/Vol] 142 mmol/L 133-145 [facility] Office Visiton 11-28-2024 Follow-up visit [id number] Ingris Peralta 1945 F Date Provider Department Center 11/28/2024 [id number] JOEL [facility] [address] Family History Problem Relation Age of Onset Heart attack Mother Stroke Father Family Status - Relation Status Age at Mother Father Level of Service:01577 SD OFFICE/OUTPATIENT ESTABLISHED MOD MDM 30 MIN Reason for Visit and Comments: Cardiac Valve Problem [1334] Normal [facility] Progress Noteon 11-28-2024 Progress Note [facility] [place] [address] [facility] [address] Dept: [phone] Dept Visit type: Established : 1945 Reason for Visit: Cardiac Valve Problem Assessment and Plan 1. Chronic systolic heart failure (HCC) Class III. Stage C Continue metoprolol. Resume Lisinopril 5 mg daily. I will have her see the heart failure team given her severe LV dysfunction, Plumas's disease, and CKD. She will have a BMP in one week 2. S/P TAVR (transcatheter aortic valve replacement) Normal functioning bioprosthetic valve. Continue Eliquis, SBE prophylaxis. WE will see her back in one year 3. Deep vein thrombosis (DVT) of proximal vein of both lower extremities, unspecified chronicity (HCC) Remains on Eliquis. She had such edema prior to TAVR And diuresis, there was question if her IVC filter was occluded. Swelling has improved with diuresis and after TAVR. Will hold off on referral to vascular (Dr. Mata Cage, for now) 4. CKD. Renal function stable. Has appt with nephrology next week 5. 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 Na/K have remained stable [address] Adorno- [facility] Subjective Ms Peralta is an 79 yr old female known to Dr. 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 She had an admission at [facility] in July for UTI after heart cath and developed extensive bilat DVTs after stopping Coumadin for 5 days, she was switched to Eliquis. Subsequently, she required diuresis for HFrEF which resulted in 15 weight loss and bump in creatinine. Ultimately, she underwent femoral TAVR with 23 mm Saoien S3 valve on 10/24/24. Post procedure echo showed EF 18%, mean ao gradient 5 mm Hg, 2+ MR, 3 + TR with possible leaflet prolapse. Last visit we dosed her with 3 extra days of Lasix 20 and then advised for prn dosing with weight parameters. We started metoprolol. Lisinopril had been on hold secondary to lower BP. Renal function 10/31/2024 showed bun 32/creat 1.47 (stable). Today she is here for one month follow up and echocardiogram. She notes that she continues to improve slowly. Swelling is overall better but she still notes some abdominal swelling. Her weight has been relatively stable (dry weight approximately 145 lbs). She has mild dyspnea with exertion, no orthopnea. She denies any chest pain, palpitations, bleeding, syncope. She asks me to write a note to [facility] adjusting her weight parameters to maintain her status there. We had a long conversation about this. Her echo today shows EF 20 %, mean ao gradient 10 mm Hg, 2 + MR, 2 + TR. Allergies[1] Current Medications[2] Medical History[3] Social History Tobacco Use Smoking status: Never Smokeless tobacco: Never Substance Use Topics Alcohol use: Never Surgical History[4] Family History[5] Objective Vitals: 11/28/24 1117 BP: (S) (!) 150/92 BP Location: Left arm Patient Position: Sitting BP Cuff Size: Adult Pulse: 92 SpO2: 99% Weight: 151 lb 3.2 oz (68.6 kg) Height: 5' 2 (1.575 m) Physical Exam Constitutional: Appearance: Normal appearance. HENT: Head: Normocephalic and atraumatic. Nose: Nose normal. Eyes: Conjunctiva/sclera: Conjunctivae normal. Pupils: Pupils are equal, round, and reactive to light. Cardiovascular: Rate and Rhythm: Normal rate and regular rhythm. Pulmonary: Effort: Pulmonary effort is normal. Breath sounds: Normal breath sounds. Abdominal: General: Bowel sounds are normal. Palpations: Abdomen is soft. Comments: Abdominal bloating Musculoskeletal: General: Normal range of motion. Cervical back: Normal range of motion and neck supple. Skin: General: Skin is warm and dry. Neurological: General: No focal deficit present. Mental Status: She is alert and oriented to person, place, and time. Psychiatric: Mood and Affect: Mood normal. Thought Content: Thought content normal. Data Reviewed and Summarized EF BP Date Value Ref Range Status 11/28/2024 20 (A) 55 - 100 % Final Review of tests/labs done/ordered within my specialty: EKG in office: unable Review of tests/labs done/ordered outside my specialty: Independent interpretation of tests: Basim Joel, [employer] - [employer] SPECIALIST [1] Allergies Allergen Reactions Amlodipine Swelling Ciprofloxacin Other and Rash rash with 500mg dose Penicillins Other and Rash rash [2] Current Outpatient Medications: acetaminophen (Tylenol) 325 MG tablet, Take 650 mg by mouth every 6 hours as needed., Disp: , Rfl: apixaban (Eliquis) 5 MG tablet, Take 5 mg by mouth 2 times daily., Disp: , Rfl: ascorbic acid (Vitamin C) 1000 MG tablet, Take 1,000 mg by mouth Nightly., Disp: , Rfl: denosumab (Prolia) 60 MG/ML solution prefilled syringe, Inject 60 mg under the skin every 6 (six) months., Disp: , (more content not included)... Normal [employer] [facility] US Heart TransthoracicOrdere d By: Jefferson Adorno on 11-28-2024 Aortic Arch 2.5 cm [employer] Phone: [phone] Aortic Sinus Valsalva 3.1 cm [employer] Phone: [phone] Aortic Sinus Valsalva Index 1.81 cm/m2 [employer] Phone: Aortic valve Mean systole pressure gradient by US.doppler derived full Bernoulli 10 mmHg [employer] Phone: Aortic valve Orifice area by US 2.5 cm2 [employer] Phone: Aortic valve Peak systolic flow by US.doppler 1.5 m/s [employer] Phone: Ascending Aorta 3.4 cm [employer] Phone: Ascending Aorta Index 1.99 cm/m2 [facility] [employer] Phone: AV Area by Peak Velocity 1.1 cm2 [employer] Phone: AV Area by VTI 0.6 cm2 [employer] Phone: AV AT 91.34 ms [employer] Phone: AV Peak Gradient 18 mmHg [employer] Phone: AV Peak Velocity 2.1 m/s [employer] Phone: AV Velocity Ratio 0.43 [employer] Phone: AV VTI 51.3 cm [facility] [employer] Work Phone: OMID/BSA Peak Velocity 0.6 cm2/m2 [facility] [employer] Work Phone: OMID/BSA VTI 0.4 cm2/m2 [facility] [employer] Work Phone: E/E' Lateral 10.14 [facility] [employer] Work Phone: E/E' Ratio (Averaged) 7.8 [facility] [employer] [facility] Work Phone: E/E' Septal 5.46 [facility] [employer] Phone: Est. RA Pressure 8 mmHg [facility] [employer] Phone: Fractional Shortening 2D 6 % 28 - 44 % [facility] [employer] Phone: Global Longitudinal Strain -6.8 % [facility] [employer] Phone: Interpretation and review of laboratory results Abnormal [facility] Phone: IVC Diameter 1.8 cm [facility] Phone: IVSd 1.3 cm Abnormal 0.6 - 0.9 cm [facility] [employer] Phone: LA Diameter 4.7 cm [facility] [employer] Phone: LA Size Index 2.75 cm/m2 [facility] [employer] Phone: LA Volume 2C 79 mL Abnormal 22 - 52 mL [facility] [employer] Phone: LA Volume 4C 69 mL Abnormal 22 - 52 mL [facility] Phone: LA Volume A/L 79 mL [facility] [employer] Phone: LA Volume BP 75 mL Abnormal 22 - 52 mL [facility] [employer] Phone: LA Volume Index 2C 46 mL/m2 Abnormal 16 - 34 mL/m2 [facility] [employer] Phone: LA Volume Index 4C 40 mL/m2 Abnormal 16 - 34 mL/m2 [facility] [employer] Phone: LA Volume Index A/L 46 mL/m2 16 - 34 mL/m2 [facility] [employer] Work Phone: LA Volume Index BP 44 ml/m2 Abnormal 16 - 34 ml/m2 [facility] [employer] Work Phone: Left ventricular Ejection fraction by US.2D+Calculated by biplane method of disks 20 % Abnormal 55 - 100 % [facility] [employer] Work Phone: LV E' Lateral Velocity 7 cm/s [facility] Work Phone: LV E' Septal Velocity 13 cm/s [facility] Work Phone: LV EDV A2C 131 mL [facility] [employer] Work Phone: LV EDV A4C 130 mL [facility] [employer] Work Phone: LV EDV BP 133 mL Abnormal 56 - 104 mL [facility] [employer] Work Phone: LV EDV Index A2C 77 mL/m2 [facility] [employer] Work Phone: LV EDV Index A4C 76 mL/m2 [facility] [employer] Work Phone: LV EDV Index BP 78 mL/m2 [facility] [employer] Work Phone: LV Ejection Fraction A2C 24 % [facility] [employer] Work Phone: LV Ejection Fraction A4C 13 % [facility] [employer] Work Phone: LV ESV A2C 100 mL [facility] [employer] Work Phone: LV ESV A4C 113 mL [facility] [employer] Work Phone: LV ESV BP 107 mL Abnormal 19 - 49 mL [facility] [employer] Work Phone: LV ESV Index A2C 58 mL/m2 [facility] [employer] Work Phone: LV ESV Index A4C 66 mL/m2 [facility] [employer] Work Phone: LV ESV Index BP 63 mL/m2 [facility] [employer] Work Phone: LV Mass 2D 295.6 g Abnormal 67 - 162 g [facility] [employer] Work Phone: LV Mass 2D Index 172.9 g/m2 Abnormal 43 - 95 g/m2 [facility] [employer] Work Phone: LV RWT Ratio 0.48 [facility] [employer] Work Phone: LVIDd 5.4 cm Abnormal 3.9 - 5.3 cm [facility] [employer] Work Phone: LVIDd Index 3.16 cm/m2 [facility] [employer] Work Phone: LVIDs 5.1 cm [facility] [employer] Work Phone: LVIDs Index 2.98 cm/m2 [facility] [employer] Work Phone: LVOT Cardiac Output 2.4 liter/minute [facility] [employer] Work Phone: LVOT Diameter 1.8 cm [facility] [employer] Work Phone: LVOT Mean Gradient 1 mmHg [facility] [employer] Work Phone: LVOT Peak Gradient 3 mmHg [facility] [employer] Work Phone: LVOT Peak Velocity 0.9 m/s [facility] [employer] Work Phone: LVOT Stroke Volume Index 18.9 mL/m2 [facility] [employer] Work Phone: LVOT SV 32.3 ml [facility] [employer] Work Phone: LVOT VTI 12.7 cm [facility] [employer] Work Phone: LVOT:AV VTI Index 0.25 [facility] [employer] Work Phone: LVPWd 1.3 cm Abnormal 0.6 - 0.9 cm [facility] [employer] Work Phone: MR VTI 194.9 cm [facility] [employer] Work Phone: MV A Velocity 0.83 m/s [facility] [employer] Work Phone: MV E Velocity 0.71 m/s [facility] [employer] Work Phone: MV E Wave Deceleration Time 162.7 ms [facility] [employer] Work Phone: MV E/A 0.86 [facility] [employer] Work Phone: MV Nyquist Velocity 36 cm/s [facility] [employer] Work Phone: MV Regurg Velocity PISA 5.6 m/s [facility] [employer] Work Phone: RA Area 4C 85.2 mL [facility] [employer] Work Phone: RA Area 4C 79.9 mL [facility] [employer] Work Phone: RV Basal Dimension 4.1 cm [facility] [employer] Work Phone: RV Free Wall Peak S' 17 cm/s [facility] [employer] Work Phone: RV Longitudinal Dimension 8.2 cm [facility] [employer] Work Phone: RV Mid Dimension 2.3 cm [facility] [employer] Work Phone: RVSP 49 mmHg [facility] [employer] Work Phone: Sinotubular Junction 2.1 cm [facility] [employer] Work Phone: TAPSE 3.4 cm 1.7 cm [facility] [employer] Work Phone: TR Max Velocity 3.21 m/s [facility] [employer] Work Phone: TR Peak Gradient 41 mmHg [facility] [employer] Work Phone: TR Peak Velocity PISA 2.7 m/s [facility] [employer] Work Phone: TR VTI 86.9 cm [facility] [employer] Work Phone: [facility] [employer] Phone: Heart Transthoracicon Left Ventricle: Left ventricle is mildly dilated. Mildly increased wall thickness. Severely reduced left ventricular systolic function. EF by 2D Simpsons Biplane is 20%. Global longitudinal strain is reduced with a value of -6.8%. Severe global hypokinesis present. Grade I diastolic dysfunction with normal LAP. Right Ventricle: Right ventricle is mildly dilated. Normal systolic function. Aortic Valve: Sanchez Phong 3 Ultra bioprosthetic aortic valve that is well-seated with a size of 23 mm. AV mean gradient is 10 mmHg. No regurgitation. No paravalvular regurgitation. No stenosis. Normal prosthetic gradient. AV mean gradient is 10 mmHg. AV peak velocity is 2.1 m/s. AV AT is 91.34 ms. LVOT:AV VTI Index is 0.25. AV area by continuity VTI is 0.6 cm2. Stroke volume index is 18.9 mL/m2. Mitral Valve: Mildly thickened leaflets. Moderately calcified leaflets. Moderate annular calcification. Moderate (2+) regurgitation. Tricuspid Valve: Moderate (2+) regurgitation. Moderately elevated RVSP. RVSP is 49 mmHg. Left Atrium: Left atrium size is moderately increased (LA volume index 42-48 mL/m2).LA Vol Index is 44 ml/m2. Right Atrium: Right atrium is moderately dilated. Left Ventricle Left ventricle is mildly dilated. Mildly increased wall thickness. Severely reduced left ventricular systolic function. EF by 2D Simpsons Biplane is 20%. Global longitudinal strain is reduced with a value of -6.8%. Severe global hypokinesis present. Grade I diastolic dysfunction with normal LAP. Right Ventricle Right ventricle is mildly dilated. Normal systolic function. Left Atrium Left atrium size is moderately increased (LA volume index 42-48 mL/m2).LA Vol Index is 44 ml/m2. Right Atrium Right atrium is moderately dilated. IVC/SVC IVC diameter is normal and decreases less than 50% during inspiration; therefore the estimated right atrial pressure is intermediate (~8 mmHg). Mitral Valve Mildly thickened leaflets. Moderately calcified leaflets. Moderate annular calcification. Moderate (2+) regurgitation. No stenosis noted. Tricuspid Valve Not well visualized. Moderate (2+) regurgitation. Moderately elevated RVSP. RVSP is 49 mmHg. Aortic Valve Sanchez Phong 3 Ultra bioprosthetic aortic valve that is well-seated with a size of 23 mm. AV mean gradient is 10 mmHg. No regurgitation. No paravalvular regurgitation. No stenosis. Normal prosthetic gradient. AV mean gradient is 10 mmHg. AV peak velocity is 2.1 m/s. AV AT is 91.34 ms. LVOT:AV VTI Index is 0.25. AV area by continuity VTI is 0.6 cm2. Stroke volume index is 18.9 mL/m2. Pulmonic Valve The pulmonic valve visualization is suboptimal but appears to be functioning normally. Trace regurgitation. Ascending Aorta Normal sized sinuses of Valsalva and ascending aorta. Pericardium No pericardial effusion. Septum No interatrial shunt visualized on color Doppler. Pulmonary Artery Pulmonary artery was not well visualized. Study Details Image quality: fair. Additional technique includes myocardial strain. Heart rate: 89 bpm. Blood pressure: 143/88 mmHg. Cardiac history: prosthetic valve. No contrast was given. Comparison Study There is a prior study available for comparison. Prior study date: 10/24/2024. CV CPACS Cardiology Visit Reporton Cardiology Visit Report [facility] [address] [place], [place] [address] OFFICE VISIT Date of Service: 11/14/24 MR#: [id number] Acct: [id number] Name: LINDA PERALTA Rep #: [id number] : 1945 Provider: Dr. Jordan Marte MD Age/Sex: 79/F Location: [facility] [place] Status: Signed HPI HPI History of Present Illness Details: Linda Peralta is an 79-year-old female who presents to office today for a cardiovascular follow-up visit. She was noted to have severe aortic stenosis and also moderate mitral and tricuspid regurgitation. She underwent a TAVR with an Sanchez PHONG 3 ultra bioprosthetic #23 valve successfully in October 2024. Post procedure a mean gradient was 5 mmHg the mitral valve was mildly thickened with moderate 2+ mitral regurgitation 3+ tricuspid regurgitation with RVSP of 58 mmHg. Her blood pressure has been somewhat elevated they have not started the lisinopril yet which will be restarted. She otherwise tells me that she has been doing well. She denies any chest pain or shortness breath or paroxysmal nocturnal dyspnea or pedal edema. She has had no neck arm or jaw discomfort suggest angina. 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 She has been followed by the renal service. 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: No Accompanied by: Daughter Is patient in pain?: No Allergies ciprofloxacin (From Cipro) Allergy (Verified 11/14/24 09:05) Rash Penicillins Allergy (Verified 11/14/24 09:05) Rash Medications ???Medication ???Instructions ???Recorded ???Confirmed ???Type acetaminophen 500 mg tablet 1,000 mg (2 x 500 mg) PO Q6H PRN 0 04/08/20 11/14/24 Rx Pain Score 1-10 denosumab 60 mg/mL subcutaneous 60 mg subcut [id number] #1 mL 11/14/24 Rx syringe (Prolia) nitroglycerin 0.4 mg sublingual 0.4 mg sublingual Q5-15M PRN 07/2511/14/24 Rx tablet Cardiac/Chest Pain #25 tabs methenamine hippurate 1 gram tablet 1 g PO QHS 04/29/24 11/14/24 Hi story Held on 08/09/24. Instructions: Resume on 08/14/24. simvastatin 20 mg tablet 20 mg PO QHS #90 tabs 07/23/24 Rx ascorbic acid (vitamin C) 1,000 mg 1,000 mg PO QHS 08/07/2411/14/ 5 History tablet hydrocortisone 10 mg tablet 10 mg PO TID #27 tabs 08/09/24 Rx apixaban 5 mg tablet (Eliquis) 5 mg PO BID #180 tabs 09/17/24 Rx furosemide 20 mg tablet (Lasix) 10 mg PO QAM PRN 11/14/24 11/14/24 History metoprolol succinate 50 mg 50 mg PO QDAY 11/14/24 11/14/24 Hi story tablet,extended release 24 hr Ejection fraction %: 47 Have you fallen in the past year?: No PFSH Medical History Overweight (BMI 25.0-29.9) Aortic stenosis Aortic stenosis, severe Plumas's disease MVP (mitral valve prolapse) Aortic stenosis Hypokalemia Elevated serum creatinine Acute prerenal azotemia History of kidney cancer 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 Hypercalcemia Frequent falls Closed head injury (03/20/20) Hypoglycemia (03/20/20) Acute electrocardiogram changes Atopic dermatitis Osteopenia determined by x-ray History of pulmonary embolism shelter (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 Orthostatic hypotension 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, stage 3 Plumas disease Essential (primary) hypertension Hyperlipidemia Recurrent deep vein thrombosis (DVT) History of non-ST elevation myocardial infarction (NSTEMI) (04/2009) Pyelonephritis Cystocele with rectocele History of DVT (deep vein thrombosis) Hypotension Surgical History (Updated 11/14/24 @ 09:[address] 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) History of left heart catheterization (04/2009) History of left nephrectomy (2000) History of total abdominal hysterectomy History of bladder repair surgery H/O partial nephrectomy (2009) H/O total cystectomy Family History Father CVA (cerebral vascular accident) Mother Myocardial infarction, Onset Age: 87 Other History of DVT (deep vein thrombosis) shelter (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 Social History Smoking Status: Never smoker alcohol intake: never substance use type: does not use caffeine: Yes what type of physical activity do you participate in: walking seatbelt use: always do you feel safe at home: Yes additional social history: Alexander- Re (more content not included)... Normal [facility] 36on 11-04-2024 36 Renal function stabl e. Advised to take Lasix 20 mg daily for 3 days and then re- evaluate by phone. Weight 150. BP 120 systolic, HR 70s. Mild dizziness unchanged. Breathing OK, walking more. mm Normal [facility] 36 Did you call patient RE: her lab results? Normal [facility] 29on 10-31-2024 29 Addended by: JAQUELIN MONCADA on: 10/31/2024 02:58 PM Modules accepted: Orders Normal [facility] 37on 10-31-2024 37 If weight gain great er than 3lbs/24 hours or > 5lbs in one week. Take 1/2 Lasix (furosemide) Normal [facility] BASIC METABOLIC PANELon 10-21 Anion gap [Moles/Vol] 6 mmol/L Normal 3-13 [facility] Comment on above: Performed By: #### L AB15 ####Estimator And Drafter Supervisor: JAQUELIN RICO ([phone])[facility] ([address] Calcium [Mass/Vol] 9.4 mg/dL Normal 8.8-10.0 [facility] Comment on above: Performed By: #### L AB15 ####Estimator And Drafter Supervisor: JAQUELIN RICO ([phone])[facility] ([facility] [place] [address] Chloride [Moles/Vol] 110 mmol/L High 98-107 [facility] Comment on above: Performed By: #### L AB15 ####Estimator And Drafter Supervisor: JAQUELIN RICO ([phone])[facility] [place] [address] CO2 [Moles/Vol] 27 mmol/L Normal 23-31 [facility] Comment on above: Performed By: #### L AB15 ####Estimator And Drafter Supervisor: JAQUELIN RICO ([phone])[facility] ([facility])[address] [place] [address] Creatinine [Mass/Vol] 1.47 mg/dL High 0.57-1.11 [facility] Comment on above: Performed By: #### L AB15 ####Estimator And Drafter Supervisor: JAQUELIN RICO ([phone])[facility] ([facility])[address] [place] [address] GLOMERULAR FILTRATION RATE ML/MIN/1.73 SQ M.PREDICTED 35.7 mL/min/1.73m*2 Low >60.0 [facility] Comment on above: Result Comment: Calc ulation based on the Chronic Kidney Disease Epidemiology Collaboration (CKD-EPI) equation refit without adjustment for race Performed By: #### L AB15 ####Estimator And Drafter Supervisor: JAQUELIN RICO ([phone])[facility] ([facility])[address] [place] [address] [place] Glucose [Mass/Vol] 62 mg/dL Low 82-115 [facility] Comment on above: Performed By: #### L AB15 ####Estimator And Drafter Supervisor: JAQUELIN RICO ([phone])[facility] ([facility])[address] [place] [address] [place] Potassium [Moles/Vol] 4.7 mmol/L Normal 3.5-5.1 [facility] Comment on above: Result Comment: [facility] potassium values may be up to 0.5 mmol/L lower than serum values. Performed By: #### L AB15 ####Estimator And Drafter Supervisor: JAQUELIN RICO ([phone])[facility] ([facility])[address] [place] [address] Sodium [Moles/Vol] 143 mmol/L Normal 136-145 [facility] Comment on above: Performed By: #### L AB15 ####Estimator And Drafter Supervisor: JAQUELIN RICO ([phone])[facility])[address] [place] [address] Urea nitrogen [Mass/Vol] 32 mg/dL High 9-23 [facility] Comment on above: Performed By: #### L AB15 ####Estimator And Drafter Supervisor: JAQUELIN RICO ([phone])[facility] ([facility])[address] [place] [address] Basic metabolic 1998 panelon 10-31-2024 Anion gap [Moles/Vol] 6 mmol/L 3 - 13 mmol/L [facility] Calcium [Mass/Vol] 9.4 mg/dL 8.8 - 10. 0 mg/dL [facility] Chloride [Moles/Vol] 110 mmol/L High 98 - 10 7 mmol/L [facility] CO2 [Moles/Vol] 27 mmol/L 23 - 31 mmol/L [facility] Creatinine [Mass/Vol] 1.47 mg/dL High 0.57 - 1.11 mg/dL [facility] GFR/1.73 sq M.predicted (S/P/Bld) [Vol rate/Area] 35.7 mL/min Low - PINF [facility] Comment on above: Calculation based on the Chronic Kidney Disease Epidemiology Collaboration (CKD-EPI) equation refit without adjustment for race Glucose [Mass/Vol] 62 mg/dL Low 82 - 115 mg/dL [facility] Interpretation and review of laboratory results Abnormal [facility] Potassium [Moles/Vol] 4.7 mmol/L 3.5 - 5.1 mmol/L [facility] Comment on above: Plasma potassium olga lidia ues may be up to 0.5 mmol/L lower than serum values. Sodium [Moles/Vol] 143 mmol/L 136 - 145 mmol/L [facility] Urea nitrogen [Mass/Vol] 32 mg/dL High 9 - 23 mg/dL [facility] Office Visiton 10-31-2024 Follow-up visit [id number] Ingris Peralta 1945 F Date Provider Department Center 10/31/2024 [id number] JOEL [facility] [address] Family History Problem Relation Age of Onset Heart attack Mother Stroke Father Family Status - Relation Status Age at Mother Father Level of Service:36170 SD OFFICE/OUTPATIENT ESTABLISHED MOD MDM 30 MIN Reason for Visit and Comments: Cardiac Valve Problem [1334] Hospital Follow-up [832] Normal [facility] Progress Noteon 10-31-2024 Progress Note [facility] [place] [address] [place] [address] Dept: [phone] Dept Visit type: Established : 1945 Reason for Visit: Cardiac Valve Problem and Hospital Follow-up Assessment and Plan 1. Severe aortic stenosis S/p TAVR. Contiue Eliquis, SBE prophylaxis.Echo one month 2. Stage 3b chronic kidney disease (HCC) Repeat BMP 3. 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 Chronic systolic heart failure (HCC) Appears decompensated. Newly lower EF post TAVR. Will repeat renal function. ADD Toprol XL 50 mg po q hs. Hold Lisinopril for now. Lasix prn for additional weight gain 5. 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 Follow up one month, will call with lab results. Subjective Ms Peralta is an 79 yr old female known to Dr. Marte with a PMH for CAD, HPL, DVT, PE, Plumas's disease, CKD s/p left nephrectomy (donated) and right partial nephrectomy (GFR 33 on 10/24/24 ), MVP, HFrEF, severe (EF 47 %, mean gradient 39 mm Hg) ; she had an admission in July for UTI after heart cath and developed extensive bilat DVTs after stopping Coumadin for 5 days, she was switched to Eliquis. Subsequently, she required diuresis for HFrEF which resulted in 15 weight loss and bump in creatinine. Ultimately, she underwent femoral TAVR with 23 mm S[place]ien S3 valve on 10/24/24. Post procedure echo showed EF 18%, mean ao gradient 5 mm Hg, 2+ MR, 3 + TR with possible leaflet prolapse. Today she is here for hospital follow up. Notes weight gain from baseline (140 lbs), was 160 lbs when she saw me 09/19. Notes some improvement in breathing since TAVR. + Swelling in legs and abdomen. No longer taking Lisinopril- BP has been lower Allergies[1] Current Medications[2] Medical History[3] Social History Tobacco Use Smoking status: Never Smokeless tobacco: Never Substance Use Topics Alcohol use: Never Surgical History[4] Family History[5] Objective Vitals: 10/31/24 1049 BP: 132/86 BP Location: Left arm Patient Position: Sitting BP Cuff Size: Adult Pulse: 96 SpO2: 98% Weight: 153 lb (69.4 kg) Height: 5' 2 (1.575 m) Physical Exam Constitutional: Appearance: Normal appearance. HENT: Head: Normocephalic and atraumatic. Nose: Nose normal. Eyes: Conjunctiva/sclera: Conjunctivae normal. Pupils: Pupils are equal, round, and reactive to light. Neck: Comments: + JVD Cardiovascular: Rate and Rhythm: Normal rate and regular rhythm. Pulmonary: Effort: Pulmonary effort is normal. Breath sounds: Normal breath sounds. Abdominal: General: Bowel sounds are normal. Palpations: Abdomen is soft. Musculoskeletal: General: Normal range of motion. Cervical back: Normal range of motion and neck supple. Right lower leg: Edema present. Left lower leg: Edema present. Skin: General: Skin is warm and dry. Neurological: General: No focal deficit present. Mental Status: She is alert and oriented to person, place, and time. Psychiatric: Mood and Affect: Mood normal. Thought Content: Thought content normal. Data Reviewed and Summarized EF BP Date Value Ref Range Status 10/24/2024 18 (A) 55 - 100 % Final Review of tests/labs done/ordered within my specialty: EKG in office: not done Review of tests/labs done/ordered outside my specialty: Independent interpretation of tests: Basim Joel, [employer] - [employer] CONTROL SPECIALIST [1] Allergies Allergen Reactions Amlodipine Swelling Ciprofloxacin Other and Rash rash with 500mg dose Penicillins Other and Rash rash [2] Current Outpatient Medications: acetaminophen (Tylenol) 325 MG tablet, Take 650 mg by mouth every 6 hours as needed., Disp: , Rfl: apixaban (Eliquis) 5 MG tablet, Take 5 mg by mouth 2 times daily., Disp: , Rfl: ascorbic acid (Vitamin C) 1000 MG tablet, Take 1,000 mg by mouth Nightly., Disp: , Rfl: denosumab (Prolia) 60 MG/ML solution prefilled syringe, Inject 60 mg under the skin every 6 (six) months., Disp: , Rfl: hydrocortisone (Cortef) 10 MG tablet, Take 1 tablet (10 mg) by mouth 3 times daily., Disp: , Rfl: lisinopril 5 MG tablet, Take 5 mg by mouth daily., Disp: , Rfl: methenamine hippurate (Hiprex) 1 g tablet, Take 1 g by mouth Nightly., Disp: , Rfl: metoprolol succinate XL (Toprol-XL) 50 MG 24 hr tablet, Take 1 tablet (50 mg) by mouth daily. Do not crush or chew., Disp: 30 tablet, Rfl: 11 nitroglycerin (Nitrostat) 0.4 MG SL tablet, TAKE 1 TABLET BY MOUTH EVERY 5-15 MINUTES NEEDED for cardiac or chest pain, Disp: , Rfl: simvastatin (Zocor) 20 MG tablet, Take 20 mg by mouth Nightly., Disp: , Rfl: [3] Past Medical History: Diagnosis Date Plumas anemia 2010 [4] Past Surgical History: Procedure Laterality Date BLADDER REPAIR CARDIAC CATHETERIZATION N/A 10/23/2024 Performed by Memo Canas MD at [facility] OR CYSTECTOMY (HISTORICAL) LAPAROSCOPIC NEPHRECTOMY (HISTORICAL) Left TOTAL ABDOMINAL HYSTERECTOMY [5] Family History Problem Relation Name Ag (more content not included)... Normal [facility] CNOVon 10-29-2024 CNOV Office Visit (INTMWS ) -------- LINDA PERALTA ([id number]) 1945 F Date Time Provider Department 10/29/24 10:40 AM AMOS FLOYD INTMWS During your visit today, we recorded the following information about you: Temperature Pulse Respiration Blood pressure 97.5 degrees 60/minute 20/minute 112/72 Weight 69.6 kg Amos Floyd MD 10/29/2024 12:03 PM Addendum Subjective Linda Peralta is a 79 year old female here with her daughter. She had TAVR at [facility] last week. She had some fluid retention prior to surgery and was prescribed furosemide 40 mg daily for 3 days with weight loss of around 20 pounds. She started regaining weight and was again advised 2 days of furosemide last week. Echo last week showed EF dropped to 20%. They have another echocardiogram scheduled. She has a follow up with [facility] this , and the [facility] later this month. ACTIVE PROBLEM LIST Disorder of Autonomic Nervous [...] incidentally noted on imaging study, right side. S/P Tavr (Transcatheter Aortic Valve Replacement), Bioprosthetic Current Outpatient Medications Medication Sig roflumilast (ZORYVE) 0.3 % cream Apply to affected area once daily. estradiol (ESTRACE) 0.01 % (0.1 mg/gram) vaginal cream Use 1 g vaginally two times a week. apixaban (ELIQUIS) 5 mg tab(s) Take 1 tablet by mouth two times a day. ipratropium bromide (ATROVENT) 42 mcg (0.06 %) nasal spray Use 2 sprays in the nose four times daily. hydrocortisone (CORTEF) 10 mg tablet Take 2 tablets by mouth every morning AND 1 tablet every evening. As directed per endocrinology.. Ascorbic Acid 1,000 mg tablet Take 1,000 mg by mouth daily at bedtime. Methenamine Hippurate (HIPREX) 1 gram tablet Take 1 g by mouth daily at bedtime. simvastatin (ZOCOR) 20 mg tablet Take 1 tablet by mouth daily at bedtime. nitroglycerin sublingual (NITROQUICK) 0.4 mg SL tablet Dissolve 1 tablet under the tongue every 5 minutes as needed. acetaminophen (TYLENOL) 325 mg tablet Take 650 mg by mouth every 6 hours as needed. No current facility-administered medications for this visit. Review of Systems Constitutional: Positive for unexpected weight change. Negative for fatigue and fever. Respiratory: Negative for cough, chest tightness and shortness of breath. Cardiovascular: Positive for leg swelling. Negative for chest pain and palpitations. Gastrointestinal: Negative for abdominal pain, nausea and vomiting. Genitourinary: Negative for difficulty urinating. Hematological: Bruises/bleeds easily. Objective BP 112/72 (BP Site: Left Arm, BP Position: Sitting, BP Cuff Size: Large Adult) Pulse 60 Temp 36.4 ?C (97.5 ?F) (Temporal) Resp 20 Wt 69.6 kg (153 lb 7 oz) BMI 28.06 kg/m? Physical Exam Constitutional: General: She is not in acute distress. Appearance: She is not ill-appearing or diaphoretic. Eyes: Conjunctiva/sclera: Conjunctivae normal. Cardiovascular: Rate and Rhythm: Regular rhythm. Tachycardia present. Heart sounds: S1 normal and S2 normal. Murmur (ULSB) heard. Systolic murmur is present with a grade of 1/6. Pulmonary: Effort: Pulmonary effort is normal. No respiratory distress. Breath sounds: No wheezing or rales. Musculoskeletal: Right lower le+ Pitting Edema present. Left lower le+ Pitting Edema present. Neurological: General: No focal deficit present. Mental Status: She is alert. EKG RESULTS: normal sinus rhythm and LVH with repolarization abnormality, rate 100 similar to previous EKG on file. ASSESSMENT/PLAN: 1. S/p TAVR (transcatheter aortic valve replacement), bioprosthetic - ICD9: V42.2, ICD10: Z95.3 (primary diagnosis) - Follow up with cardiology. 2. Pure hypercholesterolemia - ICD9: 272.0, ICD10: E78.00 Controlled. - SIMVASTATIN 20 MG TABLET - COMPREHENSIVE METABOLIC PANEL - LIPID PANEL, FASTING 3. Encounter for immunization - ICD9: V03.89, ICD10: Z23 - INFLUENZA VACCINE, PRSV FREE, AGE 65+ YR, HIGH DOSE, TRIVALENT (FLUZONE HIGH-DOSE) 4. Stage 3b chronic kidney disease (HCC) - ICD9: 585.3, ICD10: N18.32 - eGFR: 23 Stable - Counseled on avoiding NSAIDs, adequate hydration 5. Hypertensive kidney disease with stage 3b chronic kidney disease (HCC) - ICD9: 403.90, 585.3, ICD10: I12.9, N18.32 - Controlled - Continue current medications 6. Nonrheumatic aortic valve s (more content not included)... Normal [facility] [id number] 10-29-2024 ECG01 Ventricular Rate : 1 00 BPM Atrial Rate : 100 BPM P-R Interval : 142 ms QRS Duration : 88 ms Q-T Interval : 362 ms QTC Calculation(Bazett) : 466 ms Calculated P [place] : 43 degrees Calculated R [place] : -27 degrees Calculated T [place] : 101 degrees NORMAL SINUS RHYTHM LEFT VENTRICULAR HYPERTROPHY WITH REPOLARIZATION ABNORMALITY ( R in aVL , Noel product ) ABNORMAL ECG Confirmed by MD GALLARDO QARAB ([id number]) on 10/31/2024 5:12:58 PM NAME : LINDA PERALTA PID : [id number] : 1945 Gender : Female Race : ORD : Procedure Date : Oct 29 2024 11:31:04 Edit Date : Oct 31 2024 17:19:41 Diagnosis: NORMAL SINUS RHYTHM LEFT VENTRICULAR HYPERTROPHY WITH REPOLARIZATION ABNORMALITY ( R in aVL , [place] product ) ABNORMAL ECG Confirmed by MD GALLARDO QARAB ([id number]) on 10/31/2024 5:12:58 PM Test Reason : Location : 185 : [facility] Overread By : MD GALLARDO QARAB Edited By : MD GALLARDO QARAB Referred By : Amos Floyd Acquired by : Cassandra Vieira [facility] 36on 10-28-2024 36 Per TVT registry guidelines, 5 meter walk test completed in office on 09/03/24. 7 seconds, 7 seconds, 7 seconds Normal [facility] BASIC METABOLIC PANELon 09-0 Anion gap [Moles/Vol] 7 mmol/L Normal 3-13 [facility] Comment on above: Performed By: #### L AB15 ####Estimator And Drafter Supervisor: JAQUELIN RICO ([phone])[facility] ([facility])[address] [place] [address] Calcium [Mass/Vol] 8.2 mg/dL Low 8.8-10.0 [facility] Comment on above: Performed By: #### L AB15 ####Estimator And Drafter Supervisor: JAQUELIN RICO ([phone])[facility] ([facility])[address] [place] [address] [place] Chloride [Moles/Vol] 111 mmol/L High 98-107 [facility] Comment on above: Performed By: #### L AB15 ####Estimator And Drafter Supervisor: JAQUELIN RICO ([phone])[facility])[address] [place] [address] CO2 [Moles/Vol] 18 mmol/L Low 23-31 [facility] Comment on above: Performed By: #### L AB15 ####Estimator And Drafter Supervisor: JAQUELIN RICO ([phone])[facility] ([facility])[address] [place] [address] Creatinine [Mass/Vol] 1.57 mg/dL High 0.57-1.11 [facility] Comment on above: Performed By: #### L AB15 ####Estimator And Drafter Supervisor: JAQUELIN RICO ([phone])[facility])[address] [place] [address] [place] GLOMERULAR FILTRATION RATE ML/MIN/1.73 SQ M.PREDICTED 33.0 mL/min/1.73m*2 Low >60.0 [facility] Comment on above: Result Comment: Calc ulation based on the Chronic Kidney Disease Epidemiology Collaboration (CKD-EPI) equation refit without adjustment for race Performed By: #### L AB15 ####Estimator And Drafter Supervisor: JAQUELIN RICO ([phone])[facility])[address] [place] [address] Glucose [Mass/Vol] 108 mg/dL Normal 82-115 [facility] Comment on above: Performed By: #### L AB15 ####Estimator And Drafter Supervisor: JAQUELIN [phone])[facility] ([facility])[address] [place] [address] Potassium [Moles/Vol] 4.4 mmol/L Normal 3.5-5.1 [facility] Comment on above: Result Comment: [facility] potassium values may be up to 0.5 mmol/L lower than serum values. Performed By: #### L AB15 ####Estimator And Drafter Supervisor: JAQUELIN RICO ([phone])[facility] ([facility])[address] [place] [address] Sodium [Moles/Vol] 136 mmol/L Normal 136-145 [facility] Comment on above: Performed By: #### L [id number] ####Estimator And Drafter Supervisor: JAQUELIN RICO ([phone])[facility])[address] [place] [address] Urea nitrogen [Mass/Vol] 38 mg/dL High 9-23 [facility] Comment on above: Performed By: #### L [id number] ####Estimator And Drafter Supervisor: JAQUELIN RICO ([phone])[facility])[address] [place] [address] Basic metabolic 1998 panelon 10-24-2024 Anion gap [Moles/Vol] 7 mmol/L 3 - 13 mmol/L [facility] Calcium [Mass/Vol] 8.2 mg/dL Low 8.8 - 10. 0 mg/dL [facility] Chloride [Moles/Vol] 111 mmol/L High 98 - 10 7 mmol/L [facility] CO2 [Moles/Vol] 18 mmol/L Low 23 - 31 mmol/L [facility] Creatinine [Mass/Vol] 1.57 mg/dL High 0.57 - 1.11 mg/dL [facility] GFR/1.73 sq M.predicted (S/P/Bld) [Vol rate/Area] 33 mL/min Low - PINF [facility] Comment on above: Calculation based on the Chronic Kidney Disease Epidemiology Collaboration (CKD-EPI) equation refit without adjustment for race Glucose [Mass/Vol] 108 mg/dL 82 - 115 mg/dL [facility] Interpretation and review of laboratory results Abnormal [facility] Potassium [Moles/Vol] 4.4 mmol/L 3.5 - 5.1 mmol/L [facility] Comment on above: Plasma potassium olga lidia ues may be up to 0.5 mmol/L lower than serum values. Sodium [Moles/Vol] 136 mmol/L 136 - 145 mmol/L [facility] Urea nitrogen [Mass/Vol] 38 mg/dL High 9 - 23 mg/dL [facility] CBC (HEMOGRAM)on 10-24-2024 Erythrocyte distribution width (RBC) [Ratio] 15.1 % High 11.5-15.0 [facility] Comment on above: Performed By: #### L [id number] ####Estimator And Drafter Supervisor: JAQUELIN RICO ([phone])[facility])[address] [place] [address] Hematocrit (Bld) [Volume fraction] 40.3 % Normal 35.0-47.0 [facility] Comment on above: Performed By: #### L [id number] ####Estimator And Drafter Supervisor: JAQUELIN RICO ([phone])[facility])[address] [place] [address] Hemoglobin (Bld) [Mass/Vol] 12.8 g/dL Normal 11.7-16.0 [facility] Comment on above: Performed By: #### L [id number] ####Estimator And Drafter Supervisor: JAQUELIN RICO ([phone])[facility])[address] [place] [address] MCH (RBC) [Entitic mass] 29.3 pg Normal 26.0-34.0 [facility] Comment on above: Performed By: #### L [id number] ####Estimator And Drafter Supervisor: JAQUELIN RICO ([phone])[facility])[address] [place] [address] MCHC 31.8 % Normal 30.5-36.0 [facility] Comment on above: Performed By: #### L [id number] ####Estimator And Drafter Supervisor: JAQUELIN RICO ([phone])[facility])[address] [place] [address] MCV (RBC) [Entitic vol] 92.2 fL Normal 77.0-99.0 [facility] Comment on above: Performed By: #### L [id number] ####Estimator And Drafter Supervisor: JAQUELIN RICO ([phone])[facility])[address] [place] [address] Platelet mean volume (Bld) [Entitic vol] 12.5 fL Normal 9.0-12.7 [facility] Comment on above: Performed By: #### L [id number] ####Estimator And Drafter Supervisor: JAQUELIN RICO ([phone])[facility])[address] [place] [address] Platelets (Bld) [#/Vol] 132 10*3/uL Low 140-440 [facility] Comment on above: Performed By: #### L [id number] ####Estimator And Drafter Supervisor: JAQUELIN RICO ([phone])[facility])[address] [place] [address] RBC (Bld) [#/Vol] 4.37 10*6/uL Normal 3.80-5.20 [facility] Comment on above: Performed By: #### L [id number] ####Estimator And Drafter Supervisor: JAQUELIN RICO ([phone])[facility])[address] [place] [address] WBC (Bld) [#/Vol] 9.6 10*3/uL Normal 3.6-10.7 [facility] Comment on above: Performed By: #### L [id number] ####Estimator And Drafter Supervisor: JAQUELIN RICO ([phone])[facility])[address] [place] [address] CBC panel Auto (Bld)on 10-24 Erythrocyte distribution width (RBC) [Ratio] 15.1 % High 11.5 - 15.0 % [facility] Hematocrit (Bld) [Volume fraction] 40.3 % 35.0 - 47.0 % [facility] Hemoglobin (Bld) [Mass/Vol] 12.8 g/dL 11.7 - 16.0 g/dL [facility] Interpretation and review of laboratory results Abnormal [facility] MCH (RBC) [Entitic mass] 29.3 pg 26.0 - 34.0 pg [facility] MCHC (RBC) [Mass/Vol] 31.8 % 30.5 - 36.0 % [facility] MCV (RBC) [Entitic vol] 92.2 fL 77.0 - 99.0 fL [facility] Platelet mean volume (Bld) [Entitic vol] 12.5 fL 9.0 - 12.7 fL [facility] Platelets (Bld) [#/Vol] 132 10*3/uL Low 140 - 440 10*3/uL [facility] RBC (Bld) [#/Vol] 4.37 10*6/uL 3.80 - 5.2 0 10*6/uL [facility] WBC (Bld) [#/Vol] 9.6 10*3/uL 3.6 - 10.7 10*3/uL [facility] ECG 12-LEADon 10-24-2024 ECG 12-LEAD IMPRESSION: Sinus rhythm Atrial premature complex Probable left atrial enlargement Nonspecific T wave changes Electronically Signed On 10-24-2024 15:16:18 EDT by Frandy Mccoy Normal [facility] No Panel InformationOrdered By: Frandy Mccoy on 10-24-2024 P [place] 61 degrees [facility] Work Phone: SD Interval 145 ms [facility] Work Phone: QRS [place] 2 degrees [facility] Work Phone: QRSD Interval 89 ms [employer] Phone: QT Interval 371 ms [facility] Work Phone: QTC Interval 445 ms [facility] Work Phone: T Wave [place] 142 degrees [facility] Work Phone: [facility] Work Phone: No Panel Informationon 10-24 Sinus rhythm Atrial premature complex Probable left atrial enlargement Nonspecific T wave changes Electronically Signed On 10-24-2024 15:16:18 EDT by Frandy Mccoy CV Frandy Vanessa M D - 10/24/2024 IMPRESSION: Sinus rhythm Atrial premature complex Probable left atrial enlargement Nonspecific T wave changes Electronically Signed On 10-24-2024 15:16:18 EDT by Frandy Mccoy [facility] Nursing Noteon 10-24-2024 Nursing Note All discharge instructions gone over with pt and family. Med rec revoewed in depth. All restrictions, activity, site care and precautions gone over along with appointments. Saline lock removed. To daughters car via wheelchair, discharged home. Normal [facility] Nursing Note Pt had a restful nig ht and even got up the the bathroom during the night with standby assist. Pt is up in a chair eating her Breakfast. Normal [facility] Progress Noteon 10-24-2024 Progress Note Physician Response Please review the following and provide your response below. Please clarify which of the following accurately describes the patient's CKD Stage: CKD Stage 3 (GFR 30-59) This documentation will become part of the patient's medical record. Normal [facility] Progress Note PHYSICAL THERAPY [facility] Name/MRN: Linda Peralta ([id number]) Date: 10/24/2024 PT orders received per Oniel activity/mobility score. Patient currently with Oniel activity/mobility score greater than 2. Per therapy services guidelines, will discharge PT orders. Please place regular PT eval/treat orders if deemed appropriate. Shea Perez, PT Normal [facility] US Heart TransthoracicOrdere d By: Jefferson Adorno on 10-24-2024 Aortic Sinus Valsalva 3.1 cm [facility] Phone: Aortic Sinus Valsalva Index 1.86 cm/m2 [employer] Phone: Aortic valve Mean systole pressure gradient by US.doppler derived full Bernoulli 5 mmHg [employer] [facility] [employer] Phone: Aortic valve Orifice area by US 3.1 cm2 [employer] Phone: Aortic valve Peak systolic flow by US.doppler 1.1 m/s [employer] Phone: Ascending Aorta 3.4 cm [employer] Phone: [phone] Ascending Aorta Index 2.04 cm/m2 [facility] Phone: AV Area by Peak Velocity 1.7 cm2 [employer] Phone: AV Area by VTI 1.5 cm2 [facility] Work Phone: AV AT 79.92 ms [facility] Work Phone: AV Peak Gradient 9 mmHg [facility] Work Phone: AV Peak Velocity 1.5 m/s [facility] Work Phone: AV Velocity Ratio 0.53 [facility] Work Phone: AV VTI 28.2 cm [facility] Work Phone: OMID/BSA Peak Velocity 1 cm2/m2 [facility] Work Phone: OMID/BSA VTI 0.9 cm2/m2 [facility] Work Phone: E/E' Lateral 17 [facility] Work Phone: E/E' Ratio (Averaged) 14.57 [facility] Work Phone: E/E' Septal 12.14 [facility] Work Phone: Est. RA Pressure 8 mmHg [facility] Work Phone: Fractional Shortening 2D 10 % 28 - 44 % [facility] Work Phone: Global Longitudinal Strain -9.4 % [facility] Work Phone: [phone] Interpretation and review of laboratory results Abnormal [facility] Work Phone: IVC Diameter 2.5 cm [facility] Work Phone: IVSd 1 cm Abnormal 0.6 - 0.9 cm [facility] Work Phone: LA Volume 2C 82 mL Abnormal 22 - 52 mL [facility] Work Phone: LA Volume 4C 49 mL 22 - 52 mL [facility] Work Phone: LA Volume A/L 68 mL [facility] Work Phone: LA Volume BP 63 mL Abnormal 22 - 52 mL [facility] Work Phone: LA Volume Index 2C 49 mL/m2 Abnormal 16 - 34 mL/m2 [facility] Work Phone: LA Volume Index 4C 29 mL/m2 16 - 34 mL/m2 [facility] Work Phone: LA Volume Index A/L 41 mL/m2 16 - 34 mL/m2 [facility] Work Phone: LA Volume Index BP 38 ml/m2 Abnormal 16 - 34 ml/m2 [facility] Work Phone: Left ventricular Ejection fraction by US.2D+Calculated by biplane method of disks 18 % Abnormal 55 - 100 % [facility] Work Phone: LV E' Lateral Velocity 5 cm/s [facility] Work Phone: LV E' Septal Velocity 7 cm/s [facility] Work Phone: LV EDV A2C 186 mL [facility] Work Phone: LV EDV A4C 183 mL [facility] Work Phone: LV EDV BP 190 mL Abnormal 56 - 104 mL [facility] Work Phone: LV EDV Index A2C 111 mL/m2 [facility] Work Phone: LV EDV Index A4C 110 mL/m2 [facility] Work Phone: LV EDV Index BP 114 mL/m2 [facility] Work Phone: LV Ejection Fraction A2C 21 % [facility] Work Phone: LV Ejection Fraction A4C 10 % [facility] Work Phone: LV ESV A2C 147 mL [facility] Work Phone: LV ESV A4C 164 mL [facility] Work Phone: LV ESV BP 157 mL Abnormal 19 - 49 mL [facility] Work Phone: LV ESV Index A2C 88 mL/m2 [facility] Work Phone: LV ESV Index A4C 98 mL/m2 [facility] Work Phone: LV ESV Index BP 94 mL/m2 [facility] Work Phone: LV Mass 2D 218.1 g Abnormal 67 - 162 g [facility] Work Phone: LV Mass 2D Index 130.6 g/m2 Abnormal 43 - 95 g/m2 [facility] Work Phone: LV RWT Ratio 0.31 [facility] Work Phone: LVIDd 5.8 cm Abnormal 3.9 - 5.3 cm [facility] Work Phone: LVIDd Index 3.47 cm/m2 [facility] Work Phone: LVIDs 5.2 cm [facility] Work Phone: LVIDs Index 3.11 cm/m2 [facility] Work Phone: LVOT Cardiac Output 3.6 liter/minute [facility] Work Phone: LVOT Diameter 2 cm [facility] Work Phone: LVOT Mean Gradient 2 mmHg [facility] Work Phone: LVOT Peak Gradient 3 mmHg [facility] Work Phone: LVOT Peak Velocity 0.8 m/s [facility] Work Phone: LVOT Stroke Volume Index 24.6 mL/m2 [facility] Work Phone: LVOT SV 41.1 ml [facility] Work Phone: LVOT VTI 13.1 cm [facility] Work Phone: LVOT:AV VTI Index 0.46 [facility] Work Phone: LVPWd 0.9 cm 0.6 - 0.9 cm [facility] Work Phone: MR VTI 177.7 cm [facility] Work Phone: MV A Velocity 1.28 m/s [facility] Work Phone: MV E Velocity 0.85 m/s [facility] Work Phone: MV E Wave Deceleration Time 140.6 ms [facility] Work Phone: MV E/A 0.66 [facility] Work Phone: MV Nyquist Velocity 36 cm/s [facility] Work Phone: [phone] MV Regurg Velocity PISA 5.6 m/s [facility] [employer] Phone: [phone] RA Area 4C 59.8 mL [facility] Work Phone: [phone] RA Area 4C 59.1 mL [facility] Work Phone: [phone] RV Basal Dimension 3.8 cm [facility] Work Phone: [phone] RV Free Wall Peak S' 13 cm/s [facility] Work Phone: [phone] RV Longitudinal Dimension 8.5 cm [facility] [employer] Phone: [phone] RV Mid Dimension 2.1 cm [facility] [employer] Phone: [phone] RVSP 58 mmHg [facility] [employer] Phone: [phone] Sinotubular Junction 2.1 cm [facility] Work Phone: [phone] TAPSE 2.3 cm 1.7 cm [facility] [employer] Phone: [phone] TR Max Velocity 3.55 m/s [facility] [employer] Phone: [phone] TR Peak Gradient 51 mmHg [facility] [employer] Phone: [phone] [facility] [employer] Phone: [phone] Heart Transthoracicon Left Ventricle: Left ventricle is moderately dilated. Normal wall thickness. Severely reduced left ventricular systolic function. EF by 2D Simpsons Biplane is 18%. Global longitudinal strain is reduced with a value of -9.4%. Severe global hypokinesis present. Grade II diastolic dysfunction with increased LAP. Right Ventricle: Right ventricle size is normal. Normal systolic function. Aortic Valve: Sanchez Phong 3 Ultra bioprosthetic aortic valve with a size of 23 mm. AV mean gradient is 5 mmHg. No cusp thickening. No cusp calcification. No regurgitation. No paravalvular regurgitation. No stenosis. AV mean gradient is 5 mmHg. AV peak velocity is 1.5 m/s. AV AT is 79.92 ms. LVOT:AV VTI Index is 0.46. AV area by continuity VTI is 1.5 cm2. Stroke volume index is 24.6 mL/m2. Mitral Valve: Mildly thickened leaflets. Moderately calcified leaflets. Moderate annular calcification. Moderate (2+) regurgitation. Tricuspid Valve: Moderately severe (3+) regurgitation. Mechanism of regurgitation is not entirely clear based on this study. In some views the anterior leaflet appears to have a myxomatous apperance and possible prolapse. Possible leaflet prolapse. Moderately elevated RVSP. RVSP is 58 mmHg. Left Atrium: Left atrium size is mildly increased (LA volume index 35-41 mL/m2).LA Vol Index is 38 ml/m2. Right Atrium: Right atrium is mildly dilated. Left Ventricle Left ventricle is moderately dilated. Normal wall thickness. Severely reduced left ventricular systolic function. EF by 2D Simpsons Biplane is 18%. Global longitudinal strain is reduced with a value of -9.4%. Severe global hypokinesis present. Grade II diastolic dysfunction with increased LAP. Right Ventricle Right ventricle size is normal. Normal systolic function. Left Atrium Left atrium size is mildly increased (LA volume index 35-41 mL/m2).LA Vol Index is 38 ml/m2. Right Atrium Right atrium is mildly dilated. IVC/SVC IVC diameter is dilated and decreases greater than 50% during inspiration; therefore the estimated right atrial pressure is intermediate (~8 mmHg). Mitral Valve Mildly thickened leaflets. Moderately calcified leaflets. Moderate annular calcification. Moderate (2+) regurgitation. No stenosis noted. Tricuspid Valve Not well visualized. Valve structure is normal. Moderately severe (3+) regurgitation. Mechanism of regurgitation is not entirely clear based on this study. In some views the anterior leaflet appears to have a myxomatous apperance and possible prolapse. Possible leaflet prolapse. Moderately elevated RVSP. RVSP is 58 mmHg. Aortic Valve Sanchez Phong 3 Ultra bioprosthetic aortic valve with a size of 23 mm. AV mean gradient is 5 mmHg. No cusp thickening. No cusp calcification. No regurgitation. No paravalvular regurgitation. No stenosis. AV mean gradient is 5 mmHg. AV peak velocity is 1.5 m/s. AV AT is 79.92 ms. LVOT:AV VTI Index is 0.46. AV area by continuity VTI is 1.5 cm2. Stroke volume index is 24.6 mL/m2. Pulmonic Valve The pulmonic valve visualization is suboptimal but appears to be functioning normally. Trace regurgitation. Ascending Aorta Normal sized sinuses of Valsalva and ascending aorta. Pericardium No pericardial effusion. Septum No interatrial shunt visualized on color Doppler. Pulmonary Artery Pulmonary artery was not well visualized. Study Details Image quality: good. Additional technique includes myocardial strain. Heart rate: 90 bpm. Blood pressure: 108/82 mmHg. Technical qualifiers: Technically difficult study with poor endocardial visualization. Ultrasound enhancement agent was given to enhance imaging. Echo performed by Amber-Pasquale Stevens under direct supervision. CV CPACS Vital signsOrdered By: Simon Mccoy on 10-24-2024 Heart rate 89 /min bpm [facility] Work Phone: BASIC METABOLIC PANELon Anion gap [Moles/Vol] 8 mmol/L Normal 3-13 [facility] Comment on above: Performed By: #### L [id number] #### Estimator And Drafter Supervisor: JAQUELIN RICO ([phone]) [facility]) [address] [place] [address] Calcium [Mass/Vol] 7.9 mg/dL Low 8.8-10.0 [facility] Comment on above: Performed By: #### L [id number] #### Estimator And Drafter Supervisor: JAQUELIN RICO ([phone]) [facility] [address] [place] [address] Chloride [Moles/Vol] 113 mmol/L High 98-107 [facility] Comment on above: Performed By: #### L [id number] #### Estimator And Drafter Supervisor: JAQUELIN RICO ([phone]) [facility]) [address] [place] [address] CO2 [Moles/Vol] 18 mmol/L Low 23-31 [facility] Comment on above: Performed By: #### L [id number] #### Estimator And Drafter Supervisor: JAQUELIN RICO ([phone]) [facility]) [address] [place] [address] Creatinine [Mass/Vol] 1.47 mg/dL High 0.57-1.11 [facility] Comment on above: Performed By: #### L [id number] #### Estimator And Drafter Supervisor: JAQUELIN [phone]) [facility] ([facility]) [address] [place] [address] [place] GLOMERULAR FILTRATION RATE ML/MIN/1.73 SQ M.PREDICTED 35.7 mL/min/1.73m*2 Low >60.0 [facility] Comment on above: Result Comment: Calc ulation based on the Chronic Kidney Disease Epidemiology Collaboration (CKD-EPI) equation refit without adjustment for race Performed By: #### L [id number] #### Estimator And Drafter Supervisor: JAQUELIN RICO ([phone]) [facility] ([facility]) [address] [place] [address] Glucose [Mass/Vol] 134 mg/dL High 82-115 [facility] Comment on above: Performed By: #### L [id number] #### Estimator And Drafter Supervisor: JAQUELIN RICO ([phone]) [facility]) [address] [place] [address] Potassium [Moles/Vol] 4.0 mmol/L Normal 3.5-5.1 [facility] Comment on above: Result Comment: [facility] potassium values may be up to 0.5 mmol/L lower than serum values. Performed By: #### L [id number] #### Estimator And Drafter Supervisor: JAQUELIN RICO ([phone]) [facility] ([facility]) [address] [place] [address] Sodium [Moles/Vol] 139 mmol/L Normal 136-145 [facility] Comment on above: Performed By: #### L [id number] #### Estimator And Drafter Supervisor: JAQUELIN RICO ([phone]) [facility]) [address] [place] [address] Urea nitrogen [Mass/Vol] 34 mg/dL High 9-23 [facility] Comment on above: Performed By: #### L [id number] #### Estimator And Drafter Supervisor: JAQUELIN RICO ([phone]) [facility]) [address] [place] [address] BLOOD TYPE AND SCREEN GELon 10-23-2024 ABO GROUPING O Normal [facility] Comment on above: Performed By: #### L [id number] ####Estimator And Drafter Supervisor: JAQUELIN [phone])[facility] ([facility])[address] [place] [address] RH TYPE IN BLOOD Positive Normal [facility] Comment on above: Performed By: #### L [id number] ####Estimator And Drafter Supervisor: JAQUELIN RICO ([phone])[facility] ([facility])[address] [id number] [facility] Basic metabolic 1998 panelon 10-23-2024 Anion gap [Moles/Vol] 8 mmol/L 3 - 13 mmol/L [facility] Calcium [Mass/Vol] 7.9 mg/dL Low 8.8 - 10. 0 mg/dL [facility] Chloride [Moles/Vol] 113 mmol/L High 98 - 10 7 mmol/L [facility] CO2 [Moles/Vol] 18 mmol/L Low 23 - 31 mmol/L [facility] Creatinine [Mass/Vol] 1.47 mg/dL High 0.57 - 1.11 mg/dL [facility] GFR/1.73 sq M.predicted (S/P/Bld) [Vol rate/Area] 35.7 mL/min Low - PINF [facility] Comment on above: Calculation based on the Chronic Kidney Disease Epidemiology Collaboration (CKD-EPI) equation refit without adjustment for race Glucose [Mass/Vol] 134 mg/dL High 82 - 115 mg/dL [facility] Interpretation and review of laboratory results Abnormal [facility] Potassium [Moles/Vol] 4 mmol/L 3.5 - 5.1 mmol/L [facility] [facility] Comment on above: Plasma potassium olga lidia ues may be up to 0.5 mmol/L lower than serum values. Sodium [Moles/Vol] 139 mmol/L 136 - 145 mmol/L [facility] Urea nitrogen [Mass/Vol] 34 mg/dL High 9 - 23 mg/dL [facility] Blood type and Crossmatch pa dee dee (Bld)on 10-23-2024 ABO group Nom (Bld) O [facility] Blood group antibody screen GEL Ql Negative [facility] D Ag Ql (RBC) Positive [facility] CBC (HEMOGRAM)on 10-23-2024 Erythrocyte distribution width (RBC) [Ratio] 15.1 % High 11.5-15.0 [facility] Comment on above: Performed By: #### L [id number] ####Estimator And Drafter Supervisor: JAQUELIN RICO ([phone])[facility] ([facility])[address] [place] [address] Hematocrit (Bld) [Volume fraction] 39.7 % Normal 35.0-47.0 [facility] Comment on above: Performed By: #### L [id number] ####Estimator And Drafter Supervisor: JAQUELIN RICO ([phone])[facility])[address] [place] [address] Hemoglobin (Bld) [Mass/Vol] 12.4 g/dL Normal 11.7-16.0 [facility] Comment on above: Performed By: #### L [id number] ####Estimator And Drafter Supervisor: JAQUELIN RICO ([phone])[facility])[address] [place] [address] MCH (RBC) [Entitic mass] 29.7 pg Normal 26.0-34.0 [facility] Comment on above: Performed By: #### L [id number] ####Estimator And Drafter Supervisor: JAQUELIN RICO ([phone])[facility] ([facility])[address] [place] [address] MCHC 31.2 % Normal 30.5-36.0 [facility] Comment on above: Performed By: #### L [id number] ####Estimator And Drafter Supervisor: JAQUELIN RICO ([phone])[facility])[address] [place] [address] MCV (RBC) [Entitic vol] 95.0 fL Normal 77.0-99.0 [facility] Comment on above: Performed By: #### L [id number] ####Estimator And Drafter Supervisor: JAQUELIN RICO ([phone])[facility])[address] [place] [address] Platelet mean volume (Bld) [Entitic vol] 12.6 fL Normal 9.0-12.7 [facility] Comment on above: Performed By: #### L [id number] ####Estimator And Drafter Supervisor: JAQUELIN RICO ([phone])[facility])[address] [place] [address] [place] Platelets (Bld) [#/Vol] 119 10*3/uL Low 140-440 [facility] Comment on above: Performed By: #### L [id number] ####Estimator And Drafter Supervisor: JAQUELIN RICO ([phone])[facility])[address] [place] [address] RBC (Bld) [#/Vol] 4.18 10*6/uL Normal 3.80-5.20 [facility] Comment on above: Performed By: #### L [id number] ####Estimator And Drafter Supervisor: JAQUELIN RICO ([phone])[facility])[address] [place] [address] WBC (Bld) [#/Vol] 8.5 10*3/uL Normal 3.6-10.7 [facility] Comment on above: Performed By: #### L [id number] ####Estimator And Drafter Supervisor: JAQUELIN RICO ([phone])[facility] ([facility])[address] [place] [address] CBC panel Auto (Bld)Ordered By: Janay Wood on 10-23-2024 Erythrocyte distribution width (RBC) [Ratio] 15.1 % High 11.5 - 15.0 % [facility] Hematocrit (Bld) [Volume fraction] 39.7 % 35.0 - 47.0 % [facility] Hemoglobin (Bld) [Mass/Vol] 12.4 g/dL 11.7 - 16.0 g/dL [facility] Interpretation and review of laboratory results Abnormal [facility] MCH (RBC) [Entitic mass] 29.7 pg 26.0 - 34.0 pg [facility] MCHC (RBC) [Mass/Vol] 31.2 % 30.5 - 36.0 % [facility] MCV (RBC) [Entitic vol] 95 fL 77.0 - 99.0 fL [facility] Platelet mean volume (Bld) [Entitic vol] 12.6 fL 9.0 - 12.7 fL [facility] Platelets (Bld) [#/Vol] 119 10*3/uL Low 140 - 440 10*3/uL [facility] RBC (Bld) [#/Vol] 4.18 10*6/uL 3.80 - 5.2 0 10*6/uL [facility] WBC (Bld) [#/Vol] 8.5 10*3/uL 3.6 - 10.7 10*3/uL [facility] Cardiac catheterization stud yon 10-23-2024 Successful TAVR with a 23mm Phong S3u (+1cc) valve, via right femoral approach TAVR Procedural Report Interventional Cardiologists: -Memo Canas MD -Ovidio Pennington MD -Miguel Scott MD (Fellow) Cardiothoracic Surgeon: -Vitaliy Self MD Procedure: 1. A 23 PHONG S3 (+1cc) VALVE IMPLANTATION. 2. TRANSFEMORAL TRANSCATHETER AORTIC VALVE REPLACEMENT. Preoperative Diagnosis: Severe and symptomatic aortic stenosis. Postoperative Diagnosis: Severe aortic stenosis. Anesthesia: Conscious Sedation History of Present Illness: This is a very pleasant 79 y.o. female with a history of severe and symptomatic aortic stenosis. her case was discussed in our multidisciplinary valve conference and was felt to be of appropriate candidacy for TAVR. The pros, cons, risks, benefits, and alternatives of transcatheter aortic valve replacement were reviewed with the patient, and questions were answered, she provided informed consent and wished to proceed with the procedure. Description of Procedure: The patient was brought to the operating suite by anesthesia. The patient was placed under light sedation. The patient was then cleaned, prepped and draped in the normal sterile manner. Access was then gained in the right femoral artery, right radial artery, and right IJ vein. Via the right IJ vein, a 6 Irish sheath was placed and temporary pacing wire was placed into the RV apex with appropriate capture, in addition sterile tubing was attached and given the anesthesia for central access. Via radial artery artery, a 6-Irish sheath was placed and the pigtail catheter was placed into the aortic annulus with confirmation the implant angle. Via the right femoral artery, a 6-Irish sheath was placed. The patient was then heparinized. Next, two Perclose devices were used using the pre-close strategy. A Super Stiff wire was then placed through the second Perclose into the descending aorta. Then, a 14-Irish Phong E-sheath was introduced over the wire into the descending aorta. The sheath was then flushed. Next, an AL1 catheter and a straight wire were used to cross the aortic valve through the e- sheath. The straight wire was then removed and an Amplatz extra stiff wire (formed into a curve) was placed into the LV apex. Next, the AL1 catheter was removed. Next a 23mm Phong S3 valve was then advanced through the sheath into the descending aorta.The valve was then mounted on the balloon, the delivery catheter was flexed and advanced around the aortic arch and across the aortic annulus. The valve was then deployed under rapid pacing. Confirmation of an appropriate implant position and appropriately functioning valve was done using TTE. Next, the delivery catheter, extra stiff wire, and large sheath were removed and the Perclose devices were used for hemostasis. A radial band was used for hemostasis of the additional arterial site. Vascade device was used for hemostasis of the IJ venous access site. Overall, the patient tolerated the procedure well with minimal blood loss. No immediate complications. The patient will return to the Cardiac Care unit for continued monitoring. It was a pleasure taking care of your patient while hospitalized at [facility]. I will continue to follow along while hospitalized. Please do not hesitate to call with any questions. [facility] Cardiac catheterization stud yOrdered By: Memo Canas on 10-23-2024 [employer] Phone: ECG 12-LEADon 10-23-2024 ECG 12-LEAD IMPRESSION: Sinus rhythm Left atrial enlargement Nonspecific T wave changes Borderline prolonged QT interval No previous ECG available for comparison Electronically Signed On 10-23-2024 11:58:19 EDT by Antonia Neumann Normal [facility] System [facility] No Panel InformationOrdered By: Antonia Neumann on 10-23-2024 P [place] 66 degrees [employer] Phone: SD Interval 153 ms [employer] Phone: QRS [place] 7 degrees [employer] Phone: QRSD Interval 100 ms [employer] Phone: QT Interval 427 ms [employer] Phone: QTC Interval 491 ms [employer] Phone: T Wave [place] 170 degrees [employer] Phone: [employer] Phone: No Panel Informationon 10-23 Sinus rhythm Left atrial enlargement Nonspecific T wave changes Borderline prolonged QT interval No previous ECG available for comparison Electronically Signed On 10-23-2024 11:58:19 EDT by Antonia Neumann CV Antonia Basurto MD - 10/23/2024 IMPRESSION: Sinus rhythm Left atrial enlargement Nonspecific T wave changes Borderline prolonged QT interval No previous ECG available for comparison Electronically Signed On 10-23-2024 11:58:19 EDT by Antonia Neumann [facility] Interpretation and review of laboratory results Abnormal [employer] POCT ACT 320 High [facility] Performed by: [facility], [address] [place] [address], [place] [address] CLIA ID: [id number] [facility] [facility] Blood Expiration Date [id number] S [facility] Crossmatch interpretation COMP [facility] Dispense Status Crossmatch [facility] Product Blood Type 5100 [facility] PRODUCT CODE [id number] [facility] ABO O [facility] Number [id number] [facility] Number [id number] [facility] RH Positive [facility] Unit Volume 300 mL [place] Op Noteon 10-23-2024 Op Note CARDIOTHORACIC SURGERY--OPERATIVE NOTE Date: 10/23/24 Preoperative diagnosis: Severe symptomatic aortic stenosis Chronic diastolic congestive heart failure Frailty Postoperative diagnosis: Severe symptomatic aortic stenosis Chronic diastolic congestive heart failure Frailty Surgeon: Rocky Self DO Capsule Inspector: Memo Canas MD Procedure: Transcatheter aortic valve replacement with 23 mm PHONG S3 valve Transthoracic echocardiogram Complications: None Anesthesia: Local with conscious sedation Indications for procedure: The patient is a 79 year-old female with severe, symptomatic aortic valve stenosis. The case was reviewed in the valve clinic in the valve conference and the patient was deemed a candidate for TAVR. Procedure in detail: The patient was positioned supine on the operating room table. The patient was prepped and draped in usual sterile fashion. Vascular access was gained in the right common femoral artery, right radial artery and right internal jugular vein. Systemic heparin 100 mg/kg was given. Please refer to the cardiology dictation for placement of wires and sheaths. Temporary ventricular pacing wire was placed into the right ventricle using fluoroscopic guidance. After determination of the deployment angle the expandable sheath was placed through the right femoral artery. The aortic valve was then crossed using a straight wire. This wire was exchanged for an Amplatz Extra Stiff wire for placement of the prosthesis. The valve was introduced over the wire through the E sheath into the descending thoracic aorta where it was mounted on the balloon. This was then passed across the aortic arch and the aortic valve annulus. The valve was deployed under rapid ventricular pacing. It appeared to be well seated. Echocardiogram confirmed good position, no paravalvular leak, and appropriate gradients. The deployment device was removed. Protamine was then given to reverse the systemic effects of heparin and the patient was subsequently decannulated and transferred stable to the recovery room. She tolerated the procedure well. Disposition: Stable to ICU Rocky Self DO FACS Cardiothoracic Surgery Normal [facility] Progress Noteon 10-23-[address] Canas contacted about pre-procedure steroid not ordered. No new orders at this time for 30 case. Normal [facility] Progress Note X-ray to bedside Normal [facility] Progress Note Called for chest X-RAY Normal [facility] US Heart TransthoracicOrdere d By: Marcin Echeverria on 10-23-2024 Aortic valve Mean systole pressure gradient by US.doppler derived full Bernoulli 3 mmHg [facility] [employer] Phone: [phone] Ascending Aorta 3.2 cm [facility] [employer] Phone: [phone] Ascending Aorta Index 1.84 cm/m2 [facility] [employer] Phone: [phone] AV Area (Pre-TAVR) 0.6 cm2 [facility] [employer] Phone: [phone] AV Area by Peak Velocity 0.7 cm2 [facility] [employer] Phone: [phone] AV Area by VTI 0.6 cm2 [facility] Phone: [phone] AV Mean Gradient (Pre-TAVR) 25 mmHg [facility] Phone: [phone] AV Peak Gradient (Pre-TAVR) 15 mmHg [facility] Phone: [phone] AV Peak Velocity (Pre-TAVR) 2.5 m/s [employer] Phone: [phone] OMID/BSA Peak Velocity 0.4 cm2/m2 [facility] [employer] Phone: OMID/BSA VTI 0.3 cm2/m2 [facility] Phone: [phone] Est. RA Pressure 8 mmHg [facility] [employer] Phone: [phone] LVOT Cardiac Output 2.7 liter/minute [facility] [employer] Phone: LVOT Mean Gradient 1 mmHg [facility] Phone: [phone] LVOT Peak Gradient 1 mmHg [facility] Phone: [phone] LVOT Peak Velocity 0.6 m/s [facility] [employer] Phone: [phone] LVOT VTI 10 cm [facility] [employer] Phone: MR VTI 169.2 cm [facility] [employer] Phone: [phone] MV Nyquist Velocity 36 cm/s [facility] [employer] Phone: [phone] MV Regurg Velocity PISA 5.3 m/s [facility] [employer] Phone: RVSP 50 mmHg [facility] Phone: TR Max Velocity 3.25 m/s [employer] Phone: TR Peak Gradient 42 mmHg [facility] Phone: [employer] Phone: Heart Transthoracicon Left Ventricle: Left ventricle size is normal. Normal wall thickness. Severely reduced left ventricular systolic function. The EF by visual approximation is 20%. Severe global hypokinesis present. Right Ventricle: Right ventricle size is normal. Pacemaker lead present in the right ventricle. Normal systolic function. Aortic Valve: s/p Sanchez Phong 3 Ultra bioprosthetic aortic valve that is well-seated with a size of 23mm mm. AV mean gradient is 3 mmHg. No regurgitation. No stenosis. Normal prosthetic gradient. AV mean gradient is 3 mmHg. Mitral Valve: Moderately severe (3+) regurgitation. Tricuspid Valve: Mildly thickened leaflets. Moderately severe (3+) regurgitation. No stenosis noted. Moderate leaflet prolapse of the anterior leaflet. Moderately elevated RVSP. RVSP is 50 mmHg. Left Ventricle Left ventricle size is normal. Normal wall thickness. Severely reduced left ventricular systolic function. The EF by visual approximation is 20%. Severe global hypokinesis present. Indeterminate diastolic function. Right Ventricle Right ventricle size is normal. Pacemaker lead present in the right ventricle.Normal systolic function. Left Atrium Not assessed. Right Atrium Right atrium size is normal. Pacemaker lead present in the right atrium. IVC/SVC IVC diameter is dilated and decreases greater than 50% during inspiration; therefore the estimated right atrial pressure is intermediate (~8 mmHg). Mitral Valve Not well visualized. Thickened leaflets. Mildly calcified leaflets. Moderate annular calcification. Moderately severe (3+) regurgitation. Tricuspid Valve Mildly thickened leaflets. Moderately severe (3+) regurgitation. No stenosis noted. Moderate leaflet prolapse of the anterior leaflet. Moderately elevated RVSP. RVSP is 50 mmHg. Aortic Valve s/p Sanchez Phong 3 Ultra bioprosthetic aortic valve that is well-seated with a size of 23mm mm. AV mean gradient is 3 mmHg. No regurgitation. No stenosis. Normal prosthetic gradient. AV mean gradient is 3 mmHg. Pulmonic Valve The pulmonic valve was not well visualized. Ascending Aorta Normal sized sinuses of Valsalva and ascending aorta. Pericardium Evidence of prominent epicardial fat. No pericardial effusion. Pulmonary Artery Pulmonary artery was not assessed. Study Details Image quality: technically difficult. Heart rate: 95 bpm. Blood pressure: 145/98 mmHg. The underlying ECG rhythm was sinus rhythm. Technical qualifiers: Procedure performed with the patient in a supine position. No contrast was given. Structural Heart Pre Procedure Findings Severe aortic valve stenosis. AV Mean Gradient (Pre-TAVR) is 25 mmHg. CV CPACS Vital signsOrdered By: Clint Neumann on 10-23-2024 Heart rate 79 /min bpm [employer] Phone: XR CHEST 1 VIEWon 10-23-2024 XR CHEST 1 VIEW Patient Name: LINDA TEJADA : 1945 Exam Date/Time: 10/23/2024 06:14 Procedure: XR CHEST 1 VIEW Ordering Provider: GUPTA MEGGAN Reason For Exam: Aortic valve replacement (TAVR), pre-op eval EXAM: XR Chest, 1 View CLINICAL INDICATION: Aortic valve replacement (TAVR), pre-op eval TECHNIQUE: Frontal view of the chest. COMPARISON: Chest CT from 09/19/2024 FINDINGS: LUNGS AND PLEURAL SPACES: Apparent small bilateral pleural effusions. No pneumothorax. No confluent consolidation. HEART: Redemonstration of prominence of the cardiac silhouette. MEDIASTINUM: Unremarkable. Normal mediastinal contour. BONES/JOINTS: Degenerative change of the spine. No acute fracture. VASCULATURE: Calcification of the thoracic aorta. IMPRESSION: 1. Prominence of the cardiac silhouette. 2. Apparent small bilateral pleural effusions. Report Dictated on Electronically Signed By: Arelis Arauz MD Electronically Signed Date/Time: 10/23/2024 10:03 AM EDT [facility] XR Chest Single viewon 10-23 1. Prominence of the cardiac silhouette. 2. Apparent small bilateral pleural effusions. Report Dictated on Electronically Signed By: Arelis Arauz MD Electronically Signed Date/Time: 10/23/2024 10:03 AM EDT [facility] Patient Name: LINDA TEJADA : 1945 Exam Date/Time: 10/23/2024 06:14 Procedure: XR CHEST 1 VIEW Ordering Provider: GUPTA MEGGAN Reason For Exam: Aortic valve replacement (TAVR), pre-op eval EXAM: XR Chest, 1 View CLINICAL INDICATION: Aortic valve replacement (TAVR), pre-op eval TECHNIQUE: Frontal view of the chest. COMPARISON: Chest CT from 09/19/2024 FINDINGS: LUNGS AND PLEURAL SPACES: Apparent small bilateral pleural effusions. No pneumothorax. No confluent consolidation. HEART: Redemonstration of prominence of the cardiac silhouette. MEDIASTINUM: Unremarkable. Normal mediastinal contour. BONES/JOINTS: Degenerative change of the spine. No acute fracture. VASCULATURE: Calcification of the thoracic aorta. [facility] Arelis Arauz M D - 10/23/2024 Patient Name: LINDA PERALTA : 1945 Exam Date/Time: 10/23/2024 06:14 Procedure: XR CHEST 1 VIEW Ordering Provider: GUPTA MEGGAN Reason For Exam: Aortic valve replacement (TAVR), pre-op eval EXAM: XR Chest, 1 View CLINICAL INDICATION: Aortic valve replacement (TAVR), pre-op eval TECHNIQUE: Frontal view of the chest. COMPARISON: Chest CT from 09/19/2024 FINDINGS: LUNGS AND PLEURAL SPACES: Apparent small bilateral pleural effusions. No pneumothorax. No confluent consolidation. HEART: Redemonstration of prominence of the cardiac silhouette. MEDIASTINUM: Unremarkable. Normal mediastinal contour. BONES/JOINTS: Degenerative change of the spine. No acute fracture. VASCULATURE: Calcification of the thoracic aorta. IMPRESSION: 1. Prominence of the cardiac silhouette. 2. Apparent small bilateral pleural effusions. Report Dictated on Electronically Signed By: Arelis Arauz MD Electronically Signed Date/Time: 10/23/2024 10:03 AM EDT [facility] Radiology Study observation (narrative) [facility] XR Chest Single viewOrdered By: Arelis Arauz on 10-23-2024 [facility] Work Phone: 36on 10-22-2024 36 Letter refaxed to [phone] along chris/ Kishore chart note. Confirmation 10/16/24 at 3:07p Confirmed 10/22/2024 at 3:59p [place] [address] Gregory 's office to follow-up on IV hydrocortisone dosing. Did not receive fax from last week, confirmed number of [phone]. Requested patient will need to have telephone visit at [address] Gregory to review instructions. Requested to have OV note and letter re-faxed to the above number. Will provide valve clinic fax number so Dr. Gregory's office can fax recommendations back [place] [address] Approved per fax. Scanned in under Media. Approval [id number] Sched on all 3 calendars and requested on [employer]. [facility] 36on 10-18-2024 36 Labs scanned under Media [place] [address] Requested lab from [place]. She is faxing them to [address]. [facility] 36on 10-17-2024 36 Pending on Availity using [facility] telephone visit from yesterday. Pending# [id number] [facility] 36on 10-16-2024 36 Letter and Kishore valdez note faxed to [phone] and confirmed Normal [facility] [address] Marco A gore Requesting fax regarding medication recommendation sent to [phone]. Will discuss with Jo Levy. Normal [facility] [address] Marco A major Placed on hold and disconnected. Will try again later. Normal [facility] 36 Reviewed plan for bridging with [facility] pharmacist. Patient's CrCl is 31. She advised lovenox 40 mg BID for bridging. -patient will take last dose of Eliquis on 10/19/24 -starting on 10/20/24, patient will start lovenox 40 mg BID -she will take her last dose of lovenox morning of 10/22. -No lovenox the evening of 10/22 or morning of 10/23 [facility] Progress Noteon 10-16-2024 Progress Note [facility] Telehealth Cardiology Note DATE of SERVICE: 10/16/24 TIME of SERVICE: 12:45 PM Chief Complaint: Chief Complaint Patient presents with Follow-up History of Present Illness: Linda Peralta is a 79 y.o. female known to Dr. 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 She was switched to Eliquis 5 mg po bid and remains on that now. She was seen in valve clinic on 09/03 for aortic stenosis. Echo from 07/14 shows EF 47% with a mean gradient of 39 mm Hg. She reported dyspnea with moderate activity. No CAD per [facility]. Weight 156 lbs. Last clinic visit Telehealth visit completed today with patient and daughter. She reports slightly more SOB and more abdominal bloating. Denies angina, PND or LE edema. Weight 151 lbs today. She recently had 3 day course of lasix 40 mg once a day. She states she lost 15 lbs after 3 doses of lasix. Participants on telehealth call: Linda Peralta Daughter Souleymane Past Medical History: Medical History[1] Past Surgical History Surgical History[2] Family History Family History[3] Social History Social History[4] Allergies: Allergies[5] Medications: Current Medications[6] Review of Systems: Review of Systems Constitutional: Negative for chills and fever. Respiratory: Positive for shortness of breath. Negative for cough. Cardiovascular: Positive for leg swelling. Negative for chest pain and palpitations. Gastrointestinal: Positive for abdominal distention. Negative for abdominal pain, blood in stool and vomiting. Genitourinary: Negative for difficulty urinating and hematuria. Neurological: Negative for dizziness and syncope. Vital Signs (self reported) 120/58 Failed to redirect to the Timeline version of the [employer] SmartLink. Limited Telehealth exam Constitutional: [x]Alert [x]Oriented Appearance: []Healthy []Chronically ill []Acutely ill []Disheveled [x]NA (audio only) Medical Insight: [x]Good []Adequate []Limited []Poor Laboratory Tests: No results found for: WBC, HGB, HCT, MCV, PLT No results found for: GLUCOSE, CALCIUM, NA, K, CO2, CL, BUN, CREATININE @LASTCMP@ No results found for: CHLPL, CHOL No results found for: TRIG No results found for: HDL No results found for: LDLCALC Recent labs under Media tab Cardiac Tests: ECG: SR Assessment and Plan: @DIAGREFRESH@ 1. Severe aortic stenosis (Primary) Reviewed pre procedure instructions for TAVR scheduled 10/23/24. All questions answered. She is agreeable to plan. 2. Stage 3 chronic kidney disease, unspecified whether stage 3a or 3b CKD (HCC) CKD followed by zinc plater Dr. Tarango in [place]. Most recent BMP showed SCr 1.61 with CrCl 31. 3. Acute deep vein thrombosis (DVT) of right lower extremity, unspecified vein (HCC) Questionable IVC filter. Currently on Eliquis. Per daughter, LE edema has improved. Post TAVR, will refer patient to Dr. Gaffney-vascular. We reached out to [facility] clinic for recommendations on bridging. Will stop Eliquis after evening dose on 10/19/24. Starting on 10/20/24, will start lovenox 40 mg SQ BID. She will take her last dose of Lovenox on the morning of 10/22/24. No lovenox dose the evening of 10/22/24. TAVR scheduled for 10/23/24. Will determine plan to resume Eliquis/Lovenox post TAVR. Patient and daughter verbalized understanding. 4. Acute systolic heart failure (HCC) Weight slightly increased with worsening abdominal bloating. Advised lasix 20 mg once a day for 2 days only. 5. Plumas's disease (HCC) Patient is currently taking hydrocortisone (Cortef) 10 mg TID. Will reach out to enterprise application analyst Dr. Gregory in [place] ([phone]). for recommendations on IV hydrocortisone prior to TAVR. Patient was seen today via Telehealth by agreement and consent. I used the following Telehealth technology: Audio capability only. Total length of call 28 minutes. The patient was offered and advised video for a more comprehensive evaluation, but the patient declined or was unable to use video. This patient encounter is appropriate and reasonable under the circumstances given the patient's particular presentation at this time. The patient has been advised of the potential risks and limitations of this mode of treatment (including but not limited to the absence of in-person examination) and has agreed to be treated in a remote fashion in spite of them. Any and all of the patient's/patient's family's questions on this issue have been answered and I have made no promises or guarantees to the patient. The patient has also been advised to contact this office for worsening conditions or problems, and seek emergency medical treatment and/or call 911 if the patient de (more content not included)... Normal [facility] 36on 10-15-2024 36 Lab order faxed to [place] [facility] [phone]/confirmed Normal [facility] 36 I need PB to please finish his chart note so I can submit this auth Normal [facility] Anion gap in Serum or Plasma on 10-15-2024 Anion gap [Moles/Vol] 12 mmol/L 5-15 [facility] BUN/creatinine ratioon 10-15 Urea nitrogen/Creatinine [Mass ratio] 20.3 mg/mg High 10-20 [facility] Basic Metabolic Profile (BMP )on 10-15-2024 BUN/CRE 20.3 RATIO High 10-20 [facility] Comment on above: Performed By: #### L 9200.0000 #### [facility] Laboratory [address] [place], [address] Calcium [Mass/Vol] 9.5 mg/dL Normal 7.6-11.0 [facility] Comment on above: Performed By: #### L 9200.0000 #### [facility] [address] [place], [address] Chloride [Moles/Vol] 109 mmol/L High 98-108 [facility] Comment on above: Performed By: #### L 9200.0000 #### [facility] [address] [place], [address] CO2 [Moles/Vol] 20.9 mmol/L Low 21.0-32.0 [facility] Comment on above: Performed By: #### L 9200.0000 #### [facility] [address] [place], [address] Creatinine [Mass/Vol] 1.61 mg/dL High 0.70-1.20 [facility] Comment on above: Performed By: #### L 9200.0000 #### [facility] [address] [place], [address] GAP 12 Normal 5-15 [facility] Comment on above: Performed By: #### L 9200.0000 #### [facility] [address] [place], [address] GFR/1.73 sq M.predicted among non-blacks MDRD (S/P/Bld) [Vol rate/Area] 32 mL/min/{1.73_m2} Low >60 [facility] Comment on above: Result Comment: mL/m in/1.73m2 CKD-EPI Creatinine Equation (2020) Performed By: #### L 9200.0000 #### [facility] [address] [place], [address] Glucose [Mass/Vol] 101 mg/dL High 70-99 [facility] Comment on above: Performed By: #### L 9200.0000 #### [facility] [address] [place], [address] Potassium [Moles/Vol] 4.8 mmol/L Normal 3.3-5.1 [facility] Comment on above: Performed By: #### L 9200.0000 #### [facility] [address] [place], [address] Sodium [Moles/Vol] 142 mmol/L Normal 133-145 [facility] Comment on above: Performed By: #### L 9200.0000 #### [facility] [address] [place], [address] Urea nitrogen [Mass/Vol] 33 mg/dL High 4-19 [facility] Comment on above: Performed By: #### L 9200.0000 #### [facility] [address] [place], [address] CBC-Complete Blood Cnt No Di ffon 10-15-2024 Erythrocyte distribution width (RBC) [Ratio] 15.2 % High 11.6-14.6 [facility] Comment on above: Performed By: #### L 9200.0000 #### [facility] [address] [place], [address] Hematocrit (Bld) [Volume fraction] 47.1 % High 37-47 [facility] Comment on above: Performed By: #### L 9200.0000 #### [facility] [address] [place], [address] Hemoglobin (Bld) [Mass/Vol] 14.9 g/dL Normal 12.0-15.0 [facility] Comment on above: Performed By: #### L 9200.0000 #### [facility] [address] [place], [address] MCH (RBC) [Entitic mass] 29.9 pg Normal 27.0-32.0 [facility] Comment on above: Performed By: #### L 9200.0000 #### [facility] [address] [place], [address] MCHC (RBC) [Mass/Vol] 31.6 g/dL Low 32-36 [facility] Comment on above: Performed By: #### L 9200.0000 #### [facility] [address] [place], [address] MCV (RBC) [Entitic vol] 94.4 fL Normal 81-99 [facility] Comment on above: Performed By: #### L 9200.0000 #### [facility] [address] [place], [address] Platelet mean volume (Bld) [Entitic vol] 12.8 fL High 6.2-12.0 [facility] Comment on above: Performed By: #### L 9200.0000 #### [facility] [address] [place], [address] Platelets (Bld) [#/Vol] 179 10*3/uL Normal 150-450 [facility] Comment on above: Performed By: #### L 9200.0000 #### [facility] [address] [place], [address] RBC (Bld) [#/Vol] 4.99 10*6/uL Normal 4.2-5.4 [facility] Comment on above: Performed By: #### L 9200.0000 #### [facility] [address] [place], [address] RDW SD 53.1 fl High 35.1-43.9 [facility] Comment on above: Performed By: #### L 9200.0000 #### [facility] [address] [place], [place], [address] WBC (Bld) [#/Vol] 9.9 10*3/uL Normal 4.4-11.0 [facility] Comment on above: Performed By: #### L 9200.0000 #### [facility] [address] [place], [place], [address] Carbon dioxide, total [Moles /volume] in Central venous bloodon 10-15-2024 CO2 [Moles/Vol] 20.9 mmol/L Low 21.0-32.0 [facility] Chloride assayon 10-15-2024 Chloride [Moles/Vol] 109 mmol/L High 98-108 [facility] Erythrocyte distribution wid th ratioon 10-15-2024 Erythrocyte distribution width (RBC) [Ratio] 15.2 % High 11.6-14.6 [facility] Erythrocyte distribution wid th standard deviationon 10-15-2024 Erythrocyte distribution width (RBC) [Ratio] 53.1 fl High 35.1-43.9 [facility] Glomerular filtration rate ( GFR) estimation/1.73 sq m using serum, plasma, or whole bon 10-15-2024 GFR/1.73 sq M.predicted among non-blacks MDRD (S/P/Bld) [Vol rate/Area] 32 mL/min/{1.73_m2} Low >60 [facility] Comment on above: mL/min/1.73m2 CKD-EP I Creatinine Equation (2020) Hematocrit Auto (Bld) [Volum e fraction]on 10-15-2024 Hematocrit (Bld) [Volume fraction] 47.1 % High 37-47 [facility] Hemoglobin measurementon Hemoglobin (Bld) [Mass/Vol] 14.9 g/dL 12.0-15.0 [facility] MCV (mean corpuscular volume ) determinationon 10-15-2024 MCV (RBC) [Entitic vol] 94.4 fL 81-99 [facility] Mean corpuscular hemoglobin (MCH) determinationon 10-15-2024 MCH (RBC) [Entitic mass] 29.9 pg 27.0-32.0 [facility] Mean corpuscular hemoglobin concentration (MCHC) determinationon 10-15-2024 MCHC (RBC) [Mass/Vol] 31.6 g/dL Low 32-36 [facility] Mean platelet volume determi nationon 10-15-2024 Platelet mean volume (Bld) [Entitic vol] 12.8 fL High 6.2-12.0 [facility] Platelet counton 10-15-2024 Platelets (Bld) [#/Vol] 179 10*3/uL 150-450 [facility] Potassium measurement (mass/ volume)on 10-15-2024 Potassium (Unsp spec) [Mass/Vol] 4.8 mmol/L 3.3-5.1 [facility] RBC Auto (Bld) [#/Vol]on RBC (Bld) [#/Vol] 4.99 10*6/uL 4.2-5.4 [facility] Serum creatinine measurement (mass/volume)on 10-15-2024 Creatinine [Mass/Vol] 1.61 mg/dL High 0.70-1.20 [facility] Serum glucose measurement (m ass/volume)on 10-15-2024 Glucose [Mass/Vol] 101 mg/dL High 70-99 [facility] Serum or plasma calcium scott urement (mass/volume)on 10-15-2024 Calcium [Mass/Vol] 9.5 mg/dL 7.6-11.0 [facility] Serum or plasma urea nitroge n measurement (mass/volume)on 10-15-2024 Urea nitrogen [Mass/Vol] 33 mg/dL High 4-19 [facility] Sodium levelon 10-15-2024 Sodium [Moles/Vol] 142 mmol/L 133-145 [facility] White blood cell (WBC) count on 10-15-2024 WBC (Bld) [#/Vol] 9.9 10*3/uL 4.4-11.0 [facility] 36on 10-14-2024 36 Spoke with patient, she will have labs drawn tomorrow at [place]. Will have escrow secretary fax lab orders over Normal [facility] 36 Patient is scheduled for TAVR on 10/23/24. -Reviewed bridging with [facility] pharmacist. Patient current CrCl is 24 which is too low to use lovenox. -Will need to repeat BMP and CBC and see if CrCl is 30 or higher. Labs ordered -If CrCl is greater than 30 will plan to hold Eliquis 3 days prior so her last Eliquis dose would be evening dose on 10/19/24. -Will start lovenox 80 mg BID the morning of 10/20/24. -last dose will be morning of 10/22/24 (will discuss with Dr. Canas as plan may be to give evening dose of lovenox on 10/22/24) -post TAVR, plan to resume Eliquis on 10/24/24 likely in the morning. (Will review this with Dr. Canas) [place] [address]on 10-10-2024 36 Results scanned unde r [employer] [facility] 36 I called and spoke dana Borrego and she is faxing result [place] [address] Reviewed with Butch carlson APRN as patient completed renal US, plan if BMP shows stable function to proceed with TAVR. BMP results from 10/03/24 at [place] show creatinine 1.82 with GRF 28. Will have UNIT AID review and place TAVR case request if appropriate [address] 10-08-2024 36 I need PB chart note finished from 09/03/24 to do this auth [address] 10-07-2024 36 I called [place] [facility] and l/m to send me results [facility] Anion gap in Serum or Plasma Ordered By: Basim Joel on 10-03-2024 Anion gap [Moles/Vol] 13 mmol/L 07-04 [facility] BUN/creatinine ratioOrdered By: Basim Joel on 10-03-2024 Urea nitrogen/Creatinine [Mass ratio] 23.9 mg/mg High 12-09 [facility] Basic Metabolic Profile (BMP )on 10-03-2024 BUN/CRE 23.9 RATIO High 12-09 [facility] Comment on above: Performed By: #### L 500.2500 #### [facility] [address] [place], [address] Calcium [Mass/Vol] 10.2 mg/dL Normal 7.6-11.0 [facility] Comment on above: Performed By: #### L 500.2500 #### [facility] [address] [place], [address] Chloride [Moles/Vol] 106 mmol/L Normal 98-108 [facility] Comment on above: Performed By: #### L 500.2500 #### [facility] [address] [place], [address] CO2 [Moles/Vol] 22.6 mmol/L Normal 21.0-32.0 [facility] Comment on above: Performed By: #### L 500.2500 #### [facility] [address] [place], [address] Creatinine [Mass/Vol] 1.82 mg/dL High 0.70-1.20 [facility] Comment on above: Performed By: #### L 500.2500 #### [facility] [address] [place], [address] GAP 13 Normal 5-15 [facility] Comment on above: Performed By: #### L 500.2500 #### [facility] [address] [place], [address] GFR/1.73 sq M.predicted among non-blacks MDRD (S/P/Bld) [Vol rate/Area] 28 mL/min/{1.73_m2} Low >60 [facility] Comment on above: Result Comment: mL/m in/1.73m2 CKD-EPI Creatinine Equation (2020) Performed By: #### L 500.2500 #### [facility] [address] [place], [address] Glucose [Mass/Vol] 77 mg/dL Normal 70-99 [facility] Comment on above: Performed By: #### L 500.2500 #### [facility] [address] [place], [address] Potassium [Moles/Vol] 5.5 mmol/L High 3.3-5.1 [facility] Comment on above: Performed By: #### L 500.2500 #### [facility] [address] [place], [address] Sodium [Moles/Vol] 142 mmol/L Normal 133-145 [facility] Comment on above: Performed By: #### L 500.2500 #### [facility] [address] [place], [address] Urea nitrogen [Mass/Vol] 44 mg/dL High 4-19 [facility] Comment on above: Performed By: #### L 500.2500 #### [facility] [address] [place], [address] Carbon dioxide, total [Moles /volume] in Central venous bloodOrdered By: Basim Joel on 10-03-2024 CO2 [Moles/Vol] 22.6 mmol/L 21.0-32.0 [facility] Chloride assayOrdered By: Nerissa Joel on 10-03-2024 Chloride [Moles/Vol] 106 mmol/L 98-108 [facility] Glomerular filtration rate ( GFR) estimation/1.73 sq m using serum, plasma, or whole bOrdered By: Basim Joel on 10-03-2024 GFR/1.73 sq M.predicted among non-blacks MDRD (S/P/Bld) [Vol rate/Area] 28 mL/min/{1.73_m2} Low >60 [facility] Comment on above: mL/min/1.73m2 CKD-EP I Creatinine Equation (2020) Potassium measurement (mass/ volume)Ordered By: Basmi Joel on 10-03-2024 Potassium (Unsp spec) [Mass/Vol] 5.5 mmol/L High 3.3-5.1 [facility] Serum creatinine measurement (mass/volume)Ordered By: Basim Joel on 10-03-2024 Creatinine [Mass/Vol] 1.82 mg/dL High 0.70-1.20 [facility] Serum glucose measurement (m ass/volume)Ordered By: Basim Joel on 10-03-2024 Glucose [Mass/Vol] 77 mg/dL 70-99 [facility] Serum or plasma calcium scott urement (mass/volume)Ordered By: Basim Joel on 10-03-2024 Calcium [Mass/Vol] 10.2 mg/dL 7.6-11.0 [facility] Serum or plasma urea nitroge n measurement (mass/volume)Ordered By: Basim Joel on 10-03-2024 Urea nitrogen [Mass/Vol] 44 mg/dL High 4-19 [facility] Sodium levelOrdered By: David williamsone Wisam on 10-03-2024 Sodium [Moles/Vol] 142 mmol/L 133-145 [facility] 36on 10-02-2024 36 Order faxed to and confirmed Normal [facility] 36 Spoke with patient regarding US kidney. Repeat BMP . Please send lab req to [facility]. Will discuss [place] with TAVR with Dr. Canas Normal [facility] Cardiac Cath Diagnosticon Cardiac Cath Diagnostic [facility] Imaging Services [address] [place] [address] Cardiac Cath Diagnostic MR#: [id number] Acct: [id number] Name: LINDA PERALTA Rep #: [id number] : 1945 79 From: Jordan Marte MD PCP: Dr. Amos Floyd MD Status:[place] [facility] [place] Name: LINDA PERALTA Study Date: 08/05/2024 Performing: Jordan Marte MD Ht: 62 inches 157.48 cm : 1945 Wt: 145.99 lbs 66.22 kg Age: 79 Gender: female BSA: 1.67 PROCEDURE(S) PERFORMED DC02-(67000)[facility] CLINICAL PROFILE AND INDICATIONS Indications: Valvular Disease Heart Failure: None Stress/Imaging Stress/Image Study Performed: No CAD Presentations: Symptom unlikely to be ischemic. CONCLUSIONS Normal coronary arteries Normal LV size, wall motion,and systolic function Aortic Valve Stenosis- Moderate to Severe RECOMMENDATIONS Consider Valve surgery TAVR and MR surgery DESCRIPTION OF PROCEDURE The patient arrived to the procedure lab. The risks and benefits of the procedure as well as a full description of our services here and current unavailability of surgical backup were fully explained to the patient and/or their significant other prior to the catheterization. The Timeout was completed, verifying the correct patient and procedure. The patient's procedural site was prepped and draped in the usual fashion. Local anesthetic was given subcutaneously to right radial region with Lidocaine 2%. Using a modified Seldinger technique, arterial access was obtained via the right radial artery, a 5Fr sheath was inserted. Left Coronary Artery selective angiography was performed in multiple views using a 5 Fr. 4.0 Kingsley catheter. Right Coronary Artery selective angiography was then performed in multiple views using a 5 Fr. 4.0 Kingsley catheter.The arterial sheath was pulled and a TR Band was applied for hemostasis CORONARY ANGIOGRAPHY DOMINANCE: Right Dominant LEFT HEART ASSESSMENT Left Ventricular Ejection Fraction: by Echo 60 % Normal LV wall motion LEFT MAIN: Angiographically normal LEFT ANTERIOR DESCENDING ARTERY: Mild luminal irregularities CIRCUMFLEX ARTERY: Mild luminal irregularities RIGHT CORONARY ARTERY: Mild luminal irregularities VALVE FINDINGS: Moderate to Severe Mitral Valve Insufficiency - Grade 2 COMPLICATIONS No Complications PROCEDURE MEDICATIONS Versed 1 mg IV Fentanyl 50 mcg IV Oxygen: 2 L/min via nasal cannula Baby Aspirin (81mg) 1 Tabs PO @ 08/05/2024 07:26:19 Heparin given IA as radial cocktail. 08/05/2024 08:31:56 Verapamil 2.5mg, 200 mcgs, 2000 units of Heparin given IA as radial cocktail. 08/05/2024 08:31:56 SUMMARY OF HEMODYNAMIC DATA Time AIR REST ECG 07:31:06 AO 117/65 (85) SA 08:44:13 AO 112/70 (87) 08:44:38 Signed By Jordan Marte MD On 08/05/2024 08:56:45 Jordan Marte MD 09/30/24 0945 Date Jordan Hanks Signature: Date (if indicated) CC: Dr. Jordan Marte MD; Dr. Amos Floyd MD Date Dictated: 08/05/24826 Date Transcribed: 08/05/24855 Doll Wigs Hackler: [place] Signed Normal [facility] ECG 12 lead - CLINIC PERFORM EDon 09-29-2024 Sinus Rhythm -occasi onal ectopic ventricular beat -Combined atrial enlargement. -Nonspecific ST depression + Nonspecific T-abnormality -Nondiagnostic. [facility] 36on 09-26-2024 36 BMP review. Bump in BUN/creat after 3 days of 40 mg po Lasix. Spoke with daughter. Weight down to 144 #, swelling, improved, dyspnea improved. Will use Lasix 20 mg po for weight gain greater than 3 lbs overnight or 5lbs in a week. Daughter will relay recommendations. Normal [facility] Basic metabolic 2000 panelon 09-26-2024 Anion gap [Moles/Vol] 16 mmol/L High 8-15 [facility] Comment on above: Order Comment: Speci men Type: BLOOD SPECIMENOrdering Facility: [facility] Address: [address] [place] [address] Performed By: #### 2 4321-2 ####[facility] [id number] [place] [address] [place] Calcium [Mass/Vol] 10.0 mg/dL Normal 8.5-10.2 [facility] Comment on above: Order Comment: Speci men Type: BLOOD SPECIMENOrdering Facility: [facility] Address: [address] [place] [address] Performed By: #### 2 4321-2 ####[facility] [id number] [place] [address] [place] Chloride [Moles/Vol] 98 mmol/L Normal 98-107 [facility] Comment on above: Order Comment: Speci men Type: BLOOD SPECIMENOrdering Facility: [facility] Address: [address] [place] [address] Performed By: #### 2 4321-2 ####[facility] [id number] [place] [address] [place] CO2 [Moles/Vol] 24 mmol/L Normal 22-30 [facility] Comment on above: Order Comment: Speci men Type: BLOOD SPECIMENOrdering Facility: [facility] Address: [address] [place] [address] Performed By: #### 2 4321-2 ####[facility] [id number] [place] [address] [place] Creatinine [Mass/Vol] 2.12 mg/dL High 0.58-0.96 [facility] Comment on above: Order Comment: Speci men Type: BLOOD SPECIMENOrdering Facility: [facility] Address: [address] [place] [address] Performed By: #### 2 4321-2 ####[facility] [id number] [place] [address] [place] eGFRcr SerPlBld CKD-EPI 2020 23 mL/min/1.73m??? Low >=60 [facility] Comment on above: Order Comment: Speci men Type: BLOOD SPECIMENOrdering Facility: [facility] Address: [address] [place] [address] Result Comment: Marisabel mated Glomerular Filtration Rate [...] actual GFR. Performed By: #### 2 4321-2 ####[facility] JACKSONWNCLIA [id number] [place] [address] [place] Glucose [Mass/Vol] 106 mg/dL High 74-99 [facility] Comment on above: Order Comment: Speci men Type: BLOOD SPECIMENOrdering Facility: [facility] Address: [address] [place] [address] Result Comment: The [place] [employer] (ADA) provides guidance for cutoff [...] Standards of Medical Care in Diabetes 2016, [place] [employer]. Diabetes Care. 2016.39(Suppl 1). Performed By: #### 2 4321-2 ####[facility] RENESCTOWKEYLALIA [id number] [place] [address] [place] Potassium [Moles/Vol] 4.1 mmol/L Normal 3.7-5.1 [facility] Comment on above: Order Comment: Speci men Type: BLOOD SPECIMENOrdering Facility: [facility] Address: [address] [place] [address] Performed By: #### 2 4321-2 ####[facility] MILLTOWNCLIA [id number] [place] [address] [place] Sodium [Moles/Vol] 138 mmol/L Normal 136-144 [facility] Comment on above: Order Comment: Speci men Type: BLOOD SPECIMENOrdering Facility: [facility] Address: [address] [place] [address] Performed By: #### 2 4321-2 ####[facility] FLORIDAKEYLA [id number] [place] [address] [place] Urea nitrogen [Mass/Vol] 48 mg/dL High 7-21 [facility] Comment on above: Order Comment: Speci men Type: BLOOD SPECIMENOrdering Facility: [facility] Address: [address] [place] [address] Performed By: #### 2 4321-2 ####[facility] [id number] [place] [address] [place] US KIDNEY/BLADDERon 09-27-19 US KIDNEY/BLADDER * * *Final Report* * * DATE OF EXAM: Sep 26 2024 2:19PM U 1055 - US KIDNEY/BLADDER / PROCEDURE REASON: multiple diagnoses * * * * Physician Interpretation * * * * EXAMINATION: RENAL ULTRASOUND CLINICAL HISTORY: Recurrent UTI History of kidney stones TECHNIQUE: Sonography of the kidneys and urinary bladder was performed. Images were obtained and stored in a permanent archive. MQ: UR_1 COMPARISON: CT 12/14/2009 RESULT: Right Kidney: Postsurgical change of partial right nephrectomy. -Renal length: 12.1 cm -Parenchyma: Parenchyma echogenicity is increased. Diffuse parenchymal thinning present. -Collecting system: No hydronephrosis. -Calculus: No echogenic, shadowing calculus. -Lesion: Multiple benign cysts measuring up to 2.4 cm. Left Kidney: Absent. Bladder: Normal sonographic appearance. IMPRESSION: Right renal cysts. Doll Wigs Hackler: PSCGianluca Transcribe Date/Time: Sep 29 2024 8:00P Dictated by : ANDI COELHO MD This examination was interpreted and the report reviewed and electronically signed by: ANDI COELHO MD on Sep 29 2024 8:01PM EST [id number] Normal [facility] BACTERIAL CULTURE, URINEOrde red By: Nathaniel Henriquez on 09-20-2024 Bacteria identified Cx Nom (U) No growth (<1,000 CFU/ml) [facility] Bacteria identified Cx Nom ( U)Ordered By: Nathaniel Henriquez on 09-20-2024 Interpretation and review of laboratory results Normal [facility] 29on 09-19-2024 29 Addended by: BASIM JOEL on: 09/23/2024 01:57 PM Modules accepted: Orders Normal [facility] SHS BLADDER SCANon 09-19-2024 PVR 66 Cc [facility] Bacteria Ur Culton 5 Bacteria identified Cx Nom (U) CULTURE, URINE: No growth (<1,000 CFU/ml) Normal [facility] Comment on above: Performed By: #### 6 30-4 #### [facility] CLIA [id number] [address] OF [facility] CNOVon 09-19-2024 CNOV Office Visit (UROLAE ) -------- LINDA PERALTA ([id number]) 1945 F Date Time Provider Department 09/19/24 11:00 AM ARELIS SMITH During your visit today, we recorded the following information about you: Blood pressure Weight Height 124/76 70.3 kg 1.575 m Arelis Smith APRN.[employer] SPECIALIST 09/20/2024 1:00 PM Signed [facility] Urological AND Kidney [facility] [place] UROL [place] EXCHANGE NEW PATIENT UROLOGY VISIT 09/19/2024 10:34 AM PATIENT NAME: Linda Peralta DATE OF : 1945 TODAY'S DATE: 09/19/2024 Referring Provider: Rocio Elizalde [address] [facility] [address] Referring Note Reviewed: Yes Chief Complaint: recurrent UTIs History of Present Illness: Ms. Peralta is a 79 year old female who presents to the office regarding recurrent UTIs. She is accompanied by her daughter. Sees Nephrology Saw Urology 1 time about a year ago -- for urinary urgency, started on methenamine and vitamin C Has been getting UTIs x6 weeks. 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 Updated Documented Urine Cultures: Culture Results - Past 1 Year Culture 08/14/2024 Mixed microbiota, including predominantly: 50,000-<100,000 CFU/ml Enterococcus faecalis ! 50,000-<100,000 CFU/ml Enterococcus faecalis ! 08/29/2024 50,000-<100,000 CFU/ml Streptococcus anginosus ! Gets bladder pressure with UTI UTI symptoms -- Frequency: sometimes Urgency: yes Nocturia:no UUI: yes KAMI:no Incomplete bladder emptying:no Dysuria: sometimes Hematuria:no Has had kidney stones on imaging before but never had any problems from it Review of Systems Constitutional: Negative for fever. Genitourinary: Negative for difficulty urinating, dysuria, flank pain, frequency, hematuria and urgency. 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 (): seen by Dr. Miller, ongoing nausea, vomiting, diarrhea, treated with steroids despit Adrenal insufficiency ([facility]) 06/12/2023 Age-related osteoporosis with current pathological fracture with routine healing 01/19/2023 Anemia 08/26/2009 ASHD (arteriosclerotic heart disease) 04/25/2009 Asthma ([facility]) Benign neoplasm of colon 04/26/2005 Tubular adenoma Chronic diarrhea 03/15/2010 Chronic sphenoidal sinusitis 09/15/2003 Closed displaced fracture of fifth metatarsal bone of right foot 03/22/2023 Closed fracture of bone of right foot 11/08/2022 Collagenous colitis 03/30/2010 Contact dermatitis and other eczema, due to unspecified cause 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 Cardiac cath normal. 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Plumas's disease Cystocele, midline 07/23/2007 Diverticulosis of colon (without mention of hemorrhage) DVT of lower extremity (deep venous thrombosis) (HCC) 03/27/2009 Left leg Esophageal reflux Gallstones 03/06/2016 Hypercalcemia 03/19/2009 Hypertension Nonrheumatic aortic valve stenosis 06/30/2023 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 11/13/2013 Alendronate (Fosamax) start: 03/09/2017-03/09/2022 Other adrenal hypofunction PMH - PAST MEDICAL HISTORY OF Left kidney donated Psoriasis and similar disorder Pure hypercholesterolemia 02/17/2015 Renal cyst 03/27/2009 Stage 3b chronic kidney disease (HCC) 07/29/2020 Syncope Tonic pupillary reaction Unspecified disorder of autonomic nervous system 10/20/2003 Unspecified disorder resulting from impaired renal function 04/26/2005 Unspecified sinusitis (chronic) Past Surgical History: PAST SURGICAL HISTORY Procedure Laterality Date CATARACT EXTRACTION HX Bilateral 10/2017 and October 2017 COLONOSCOPY W/BIOPSY 03/25/2016 COLONOSCOPY FLX DX W/COLLJ SPEC WHEN PFRMD 05/12/2004 Colonoscopy COLONOSCOPY FLX DX W/COLLJ SPEC WHEN PFRMD 09/20/2007 Colonoscopy COLONOSCOPY FLX DX W/COLLJ SPEC WHEN PFRMD 05/11/2009 Colonoscopy COLONOSCOPY FLX DX W/COLLJ SPEC WHEN PFRMD 03/26/2010 Inpatient at [facility] ESOPHAGOGASTRODUODENOSCO PY TRANSORAL DIAGNOSTIC 02/2002 EGD ESOPHAGOGASTRODUODENOSCO PY TRANSORAL DIAGNOSTIC 05/01/2009 EGD ESOPHAGOGASTRODUODENOSCO PY TRANSORAL DIAGNOSTIC (more content not included)... Normal [facility] 09-19-2024 TELLYN Telephone (UROLAE) -------- LINDA PERALTA ([id number]) 1945 F Date Time Provider Department 09/19/24 ARELIS SMITH During your visit today, we recorded the following information about you: Sindi Angeles 09/19/2024 12:10 PM Signed Patient saw Arelis Smith CNP today and had a consult to ID placed. Gave patient scheduling number for their office, and also faxed order with face sheet to their office. Advised patient to call their office if they haven't heard from them within 2 weeks. Received fax confirmation which will be scanned into the chart. Cecy Angeles September 19, 2024 12:06 PM Sindi Angeles 09/23/2024 8:26 AM Signed Per appointment desk, patient scheduled with ID on 10-23-24 at 9:00a.m. with Dr. Noble Chowdary. Cecy Angeles September 23, 2024 8:26 AM Allergies As of Date: 09/19/2024 Noted Allergy Reaction CIPRO (CIPROFLOXACIN) 07/22/2009 Comments: rash with 500mg dose PENICILLINS 06/17/2002 Comments: rash Date Reviewed: 09/19/2024 Reviewed by: Arelis Smith APRN.CNP - Fully Assessed Reason for Visit: Consult [502] Prescriptions as of 09/23/2024 - estradiol (ESTRACE) 0.01 % (0.1 mg/gram) vaginal cream Use 1 g vaginally two times a week. - apixaban (ELIQUIS) 5 mg tab(s) Take 1 tablet by mouth two times a day. - ipratropium bromide (ATROVENT) 42 mcg (0.06 %) nasal spray Use 2 sprays in the nose four times daily. - hydrocortisone (CORTEF) 10 mg tablet Take 2 tablets by mouth every morning AND 1 tablet every evening. As directed per endocrinology.. - Ascorbic Acid 1,000 mg tablet Take 1,000 mg by mouth daily at bedtime. - Methenamine Hippurate (HIPREX) 1 gram tablet Take 1 g by mouth daily at bedtime. - simvastatin (ZOCOR) 20 mg tablet Take 1 tablet by mouth daily at bedtime. - nitroglycerin sublingual (NITROQUICK) 0.4 mg SL tablet Dissolve 1 tablet under the tongue every 5 minutes as needed. - acetaminophen (TYLENOL) 325 mg tablet Take 650 mg by mouth every 6 hours as needed. Problem List As Of Date 09/19/2024 Noted Resolved Disorder of autonomic nervous system [G90.9] 10/20/2003 Adrenal hypofunction (HCC) [E27.40] 07/24/2024 DERMATITIS NOS [L25.9] 07/18/2008 IMPAIRED RENAL FUNCT [...] Closed displaced fracture of fifth metatarsal b*03/22/2023 07/24/2024 Gait abnormality [R26.9] 03/28/2023 01/23/2024 Physical deconditioning [R53.81] 05/31/2023 01/23/2024 Weakness [R53.1] 05/31/2023 07/24/2024 NSTEMI (non-ST elevated myocardial infarction) *06/09/2023 01/23/2024 Adrenal insufficiency (HCC) [E27.40] 06/12/2023 Nonrheumatic aortic valve stenosis [I35.0] 06/30/2023 Nodule of lower lobe of right lung needing foll*06/08/2023 02/22/2024 History of DVT of lower extremity and coronary *01/23/2024 Thyroid nodule greater than or equal to 1 cm in*02/22/2024 Encounter Status:Closed by SINDI ANGELES on 09/23/24 [facility] CT ANGIOGRAM TAVRon 09-20-19 CT ANGIOGRAM TAVR Patient Name: LINDA TEJADA : 1945 Exam Date/Time: 09/19/2024 12:47 Procedure: CT ANGIOGRAM TAVR Ordering Provider: GUPTA MEGGAN Reason For Exam: Aortic valve replacement (TAVR), pre-op eval --------ADDENDUM #1 -------- Radiologist addendum: Extracardiac read: Comparison: None. Findings: Remote healed rib fracture deformity involving the right posterior 10th rib. Small dependent bilateral pleural effusions, right greater than left. Right upper lobe subsegmental atelectasis. 1 cm right thyroid hypodense nodule. 2 mm right hepatic dome isodensity two small to characterize. Left kidney is surgically absent. 2.2 right superior and 2.4 cm right mid polar renal cysts. Sigmoid diverticulosis. Uterus is surgically absent. IVC infrarenal filter. Inferior thoracic and lumbar degenerative spondylosis. No osseous lesions. EXTRACARDIAC IMPRESSION: Small bilateral pleural effusions, right greater than left. Right upper lobe subsegmental atelectasis. Right renal cysts, no further renal imaging is necessary. Sigmoid diverticulosis. Please refer to Dr. Elias's CTA TAVR report for cardiac and vascular findings. Report Dictated on Electronically Signed By: Nixon Jones DO Electronically Signed Date/Time: 09/19/2024 11:00 PM EDT --------ORIGINAL REPORT -------- [facility] Cardiovascular CTA Indication: 79 year-old woman with severe aortic stenosis, being evaluated for transcatheter aortic valve implantation. Technique: Computed tomography of the heart, thoracoabdominal aorta, and iliofemoral system was performed using a [employer] One 320 detector scanner. Images were reconstructed and analyzed on an advanced post-processing 3D workstation. Contrast: 100 mL Total DLP: 120.6 mGy-cm Study Quality: Excellent Extracardiac Findings: For a complete description of extracardiac structures, please refer to the accompanying radiology addendum. Cardiac Chambers: The pericardium is unremarkable. The left globe is mildly dilated. The right ventricle is normal in size. The left atrium is mildly dilated. The left atrial appendage is normal in appearance. The right atrium is normal in size. Coronary Arteries: The coronaries have normal origins. There is a pattern of right coronary dominance. There is evidence of coronary atherosclerosis. The present study was not optimized for evaluation of the coronary arteries. Mitral Valve: The mitral annulus has moderate anterior calcification, with extension into the LVOT below the left cusp. The anterior mitral leaflet is free of the LVOT during systole. Aortic Valve: The aortic valve is tricuspid of the calcified. Predicted deployment angle (3-cusp view): BAHRAINI 16, OILER AND GREASER 3 Aortic Annulus: Dimensions: 2.56 x 1.98 cm Area: 4.17 cm2 Perimeter: 74.2 mm Left coronary height: 14.6 mm Right Coronary height: 15.6 mm Aorta and Iliofemoral System: All vascular measurements are minimal luminal diameters using a centerline technique. Aortic Root and Thoracic Aorta: Sinuses of Valsalva: 26 mm Sinotubular junction: 25 mm Mid ascending Aorta: 34 mm Abdominal Aorta: Infrarenal: 16 mm Bifurcation: 13 mm Right Iliac System: Somewhat high bifurcation Calcification: Minimal. Tortuosity: Minimal. RCIA: 9 mm REIA: 8 mm RCFA: 9 mm Left Iliac System: Calcification: Minimal. Tortuosity: Minimal. LCIA: 9 mm KRYSTIN: 8 mm LCFA: 8 mm CONCLUSIONS: 1. Calcific aortic stenosis, with descriptive anatomy and annular / aortic root measurements as detailed above. There is moderate anterior MAC extending into the LVOT below the left cusp. 2. Patent bilateral iliofemoral system as detailed above. Report Dictated on Electronically Signed By: Ben Elias MD Electronically Signed Date/Time: 09/19/2024 4:29 PM EDT Patient Name: LINDA PERALTA : 1945 Exam Date/Time: 09/19/2024 12:47 Procedure: CT ANGIOGRAM TAVR Ordering Provider: GUPTA MEGGAN Reason For Exam: Aortic valve replacement (TAVR), pre-op eval [facility] Cardiovascular CTA Indication: 79 year-old woman with severe aortic stenosis, being evaluated for transcatheter aortic valve implantation. Technique: Computed tomography of the heart, thoracoabdominal aorta, and iliofemoral system was performed using a [employer] One 320 detector scanner. Images were reconstructed and analyzed on an advanced post-processing 3D workstation. Contrast: 100 mL Total DLP: 120.6 mGy-cm Study Quality: Excellent Extracardiac Findings: For a complete description of extracardiac structures, please refer to the accompanying radiology addendum. Cardiac Chambers: The pericardium is unremarkable. The left globe is mildly dilated. The right ventricle is normal in size. The left atrium is mildly dilated. The left atrial appendage is normal in (more content not included)... Normal [facility] CT Chest WO and CT angiogram Coronary arteries W contrast Lizzy 09-19-2024 Addendum by Nixon Abarca DO on 09/19/2024 11:00 PM EDT Patient Name: LINDA PERALTA : 1945 Exam Date/Time: 09/19/2024 12:47 Procedure: CT ANGIOGRAM TAVR Ordering Provider: GUPTA MEGGAN Reason For Exam: Aortic valve replacement (TAVR), pre-op eval --------ADDENDUM #1 -------- Radiologist addendum: Extracardiac read: Comparison: None. Findings: Remote healed rib fracture deformity involving the right posterior 10th rib. Small dependent bilateral pleural effusions, right greater than left. Right upper lobe subsegmental atelectasis. 1 cm right thyroid hypodense nodule. 2 mm right hepatic dome isodensity two small to characterize. Left kidney is surgically absent. 2.2 right superior and 2.4 cm right mid polar renal cysts. Sigmoid diverticulosis. Uterus is surgically absent. IVC infrarenal filter. Inferior thoracic and lumbar degenerative spondylosis. No osseous lesions. EXTRACARDIAC IMPRESSION: Small bilateral pleural effusions, right greater than left. Right upper lobe subsegmental atelectasis. Right renal cysts, no further renal imaging is necessary. Sigmoid diverticulosis. Please refer to Dr. Elias's CTA TAVR report for cardiac and vascular findings. Report Dictated on Electronically Signed By: Nixon Jones DO Electronically Signed Date/Time: 09/19/2024 11:00 PM EDT --------ORIGINAL REPORT -------- [facility] CTA Indication: 79 year-old woman with severe aortic stenosis, being evaluated for transcatheter aortic valve implantation. Technique: Computed tomography of the heart, thoracoabdominal aorta, and iliofemoral system was performed using a [employer] One 320 detector scanner. Images were reconstructed and analyzed on an advanced post-processing 3D workstation. Contrast: 100 mL Total DLP: 120.6 mGy-cm Study Quality: Excellent Extracardiac Findings: For a complete description of extracardiac structures, please refer to the accompanying radiology addendum. Cardiac Chambers: The pericardium is unremarkable. The left globe is mildly dilated. The right ventricle is normal in size. The left atrium is mildly dilated. The left atrial appendage is normal in appearance. The right atrium is normal in size. Coronary Arteries: The coronaries have normal origins. There is a pattern of right coronary dominance. There is evidence of coronary atherosclerosis. The present study was not optimized for evaluation of the coronary arteries. Mitral Valve: The mitral annulus has moderate anterior calcification, with extension into the LVOT below the left cusp. The anterior mitral leaflet is free of the LVOT during systole. Aortic Valve: The aortic valve is tricuspid of the calcified. Predicted deployment angle (3-cusp view): BAHRAINI 16, OILER AND GREASER 3 Aortic Annulus: Dimensions: 2.56 x 1.98 cm Area: 4.17 cm2 Perimeter: 74.2 mm Left coronary height: 14.6 mm Right Coronary height: 15.6 mm Aorta and Iliofemoral System: All vascular measurements are minimal luminal diameters using a centerline technique. Aortic Root and Thoracic Aorta: Sinuses of Valsalva: 26 mm Sinotubular junction: 25 mm Mid ascending Aorta: 34 mm Abdominal Aorta: Infrarenal: 16 mm Bifurcation: 13 mm Right Iliac System: Somewhat high bifurcation Calcification: Minimal. Tortuosity: Minimal. RCIA: 9 mm REIA: 8 mm RCFA: 9 mm Left Iliac System: Calcification: Minimal. Tortuosity: Minimal. LCIA: 9 mm KRYSTIN: 8 mm LCFA: 8 mm CONCLUSIONS: 1. Calcific aortic stenosis, with descriptive anatomy and annular / aortic root measurements as detailed above. There is moderate anterior MAC extending into the LVOT below the left cusp. 2. Patent bilateral iliofemoral system as detailed above. Report Dictated on Electronically Signed By: Ben Elias MD Electronically Signed Date/Time: 09/19/2024 4:29 PM EDT [employer] [facility] 1945 [id number] Exam Date/Time: 09/19/2024 12:47 Procedure: CT ANGIOGRAM TAVR Ordering Provider: GUPTA MEGGAN Reason For Exam: Aortic valve replacement (TAVR), pre-op eval [facility] Cardiovascular CTA Indication: 79 year-old woman with severe aortic stenosis, being evaluated for transcatheter aortic valve implantation. Technique: Computed tomography of the heart, thoracoabdominal aorta, and iliofemoral system was performed using a [employer] One 320 detector scanner. Images were reconstructed and analyzed on an advanced post-processing 3D workstation. Contrast: 100 mL Total DLP: 120.6 mGy-cm Study Quality: Excellent Extracardiac Findings: For a complete description of extracardiac structures, please refer to the accompanying radiology addendum. Cardiac Chambers: The pericardium is unremarkable. The left globe is mildly dilated. The right ventricle is normal in size. The left atrium is mildly dilated. The left atrial appendage is normal in appearance. The right atrium is normal in size. Coronary Arteries: The coronaries have normal origins. There is a pattern of right coronary dominance. There is evidence of coronary atherosclerosis. The present study was not optimized for evaluation of the coronary arteries. Mitral Valve: The mitral annulus has moderate anterior calcification, with extension into the LVOT below the left cusp. The anterior mitral leaflet is free of the LVOT during systole. Aortic Valve: The aortic valve is tricuspid of the calcified. Predicted deployment angle (3-cusp view): BAHRAINI 16, OILER AND GREASER 3 Aortic Annulus: Dimensions: 2.56 x 1.98 cm Area: 4.17 cm2 Perimeter: 74.2 mm Left coronary height: 14.6 mm Right Coronary height: 15.6 mm Aorta and Iliofemoral System: All vascular measurements are minimal luminal diameters using a centerline technique. Aortic Root and Thoracic Aorta: Sinuses of Valsalva: 26 mm Sinotubular junction: 25 mm Mid ascending Aorta: 34 mm Abdominal Aorta: Infrarenal: 16 mm Bifurcation: 13 mm Right Iliac System: Somewhat high bifurcation Calcification: Minimal. Tortuosity: Minimal. RCIA: 9 mm REIA: 8 mm RCFA: 9 mm Left Iliac System: Calcification: Minimal. Tortuosity: Minimal. LCIA: 9 mm KRYSTIN: 8 mm LCFA: 8 mm CONCLUSIONS: 1. Calcific aortic stenosis, with descriptive anatomy and annular / aortic root measurements as detailed above. There is moderate anterior MAC extending into the LVOT below the left cusp. 2. Patent bilateral iliofemoral system as detailed above. Report Dictated on Electronically Signed By: Ben Elias MD Electronically Signed Date/Time: 09/19/2024 4:29 PM T [facility] Ben Elias MD / Nixon Jones DO - 09/19/2024 Patient Name: LINDA PERALTA : 1945 [facility]#: [id number] Exam Date/Time: 09/19/2024 12:47 Procedure: CT ANGIOGRAM TAVR Ordering Provider: GUPTA MEGGAN Reason For Exam: Aortic valve replacement (TAVR), pre-op eval [facility] Cardiovascular CTA Indication: 79 year-old woman with severe aortic stenosis, being evaluated for transcatheter aortic valve implantation. Technique: Computed tomography of the heart, thoracoabdominal aorta, and iliofemoral system was performed using a [employer] One 320 detector scanner. Images were reconstructed and analyzed on an advanced post-processing 3D workstation. Contrast: 100 mL Total DLP: 120.6 mGy-cm Study Quality: Excellent Extracardiac Findings: For a complete description of extracardiac structures, please refer to the accompanying radiology addendum. Cardiac Chambers: The pericardium is unremarkable. The left globe is mildly dilated. The right ventricle is normal in size. The left atrium is mildly dilated. The left atrial appendage is normal in appearance. The right atrium is normal in size. Coronary Arteries: The coronaries have normal origins. There is a pattern of right coronary dominance. There is evidence of coronary atherosclerosis. The present study was not optimized for evaluation of the coronary arteries. Mitral Valve: The mitral annulus has moderate anterior calcification, with extension into the LVOT below the left cusp. The anterior mitral leaflet is free of the LVOT during systole. Aortic Valve: The aortic valve is tricuspid of the calcified. Predicted deployment angle (3-cusp view): BAHRAINI 16, OILER AND GREASER 3 Aortic Annulus: Dimensions: 2.56 x 1.98 cm Area: 4.17 cm2 Perimeter: 74.2 mm Left coronary height: 14.6 mm Right Coronary height: 15.6 mm Aorta and Iliofemoral System: All vascular measurements are minimal luminal diameters using a centerline technique. Aortic Root and Thoracic Aorta: Sinuses of Valsalva: 26 mm Sinotubular junction: 25 mm Mid ascending Aorta: 34 mm Abdominal Aorta: Infrarenal: 16 mm Bifurcation: 13 mm Right Iliac System: Somewhat high bifurcation Calcification: Minimal. Tortuosity: Minimal. RCIA: 9 mm REIA: 8 mm RCFA: 9 mm Left Iliac System: Calcification: Minimal. Tortuosity: Minimal. LCIA: 9 mm KRYSTIN: 8 mm LCFA: 8 mm CONCLUSIONS: 1. Calcific aortic stenosis, with descriptive anatomy and annular / aortic root measurements as detailed above. There is moderate anterior MAC extending into the LVOT below the left cusp. 2. Patent bilateral iliofemoral system as detailed above. Report Dictated on Electronically Signed By: Ben Elias MD Electronically Signed Date/Time: 09/19/2024 4:29 PM EDT [facility] CT angiogram Coronary arteries W contrast IVOrdered By: Ben Elias on 09-19-2024 [employer] Work Phone: Office Visiton 09-19-2024 Follow-up visit [id number] Ingris Peralta 1945 F Date Provider Department Center 09/19/2024 [id number] JOEL L [facility] [address] Family History Problem Relation Age of Onset Heart attack Mother Stroke Father Family Status - Relation Status Age at Mother Father Level of Service:20386 SD OFFICE/OUTPATIENT ESTABLISHED MOD MDM 30 MIN Reason for Visit and Comments: Cardiac Valve Problem [1334] Normal [facility] Progress Noteon 09-19-2024 Progress Note [facility] - [place] [address] [place] [address] Dept: [phone] Dept Visit type: Established : 1945 Reason for Visit: Cardiac Valve Problem Assessment and Plan 1. Aortic valve stenosis, etiology of cardiac valve disease unspecified - ECG 12 lead - CLINIC PERFORMED - Basic metabolic panel Plan TAVR once plan for UTI established. Consider ID consult to guide antibiotics with upcoming TAVR procedure. Await kidney ultrasound, ua cx 2. Deep vein thrombosis (DVT) of proximal vein of both lower extremities, unspecified chronicity (HCC). On apixaban. Continues to have significant LE edema. ? Occluded IVC filter. Discussed with Dr. Canas. Plan referral to Dr. Gaffney- vascular. Will reach out to [facility] for bridging recommendation 3. Acute systolic heart failure (HCC) Will trial low dose diuretic cautiously, follow renal function, BP 4. Moris's disease (HCC) As above, continue steroids 5. Renal insufficiency 1/2 kidney present. Check renal panel 6. Recurrent UTI. Followed by urology Case reviewed with Dr. Canas. Will trial Lasix 40 mg po qd for 3 days. She will get a BMP 09/26. Plan to refer to Dr. Gaffney for suspected IVC filter clotting off. Has renal ultrasound scheduled for 09/26. Ua studies negative per patient account. Consider referral to ID, pending renal ultrasound result. mm Reviewed with Dr. Canas Subjective Ms Peralta is an 79 yr old female known to Dr. Marte with a PMH for CAD, HPL, DVT, PE, Plumas's disease, CKD s/p left nephrectomy (donated) and right partial nephrectomy (GFR 40), MVP; she had an admission in July for UTI after heart cath and developed extensive bilat DVTs after stopping Coumadin for 5 days. She was switched to Eliquis 5 mg po bid and remains on that now. She was seen in valve clinic on 09/03 for aortic stenosis. Echo from 07/14 shows EF 47% with a mean gradient of 39 mm Hg. She reported dyspnea with moderate activity. No CAD per [facility]. Weight 156 lbs. Last clinic visit She is here today to discuss plan for moving forward with TAVR. CTA completed today. She reports dyspnea has worsened a bit. Weight increasing. Swelling continues and worse when legs are dependent. She is able to sleep flat on her side. She denies any chest pain. BP has been stable, no bleeding. She saw urology today. Renal ultrasound scheduled for 09/26, Ua shows WBCs, ua cx pending. No dysuria. Allergies[1] Current Medications[2] Medical History[3] Social History Tobacco Use Smoking status: Never Smokeless tobacco: Never Substance Use Topics Alcohol use: Never Surgical History[4] Family History[5] Objective Vitals: 09/19/24 1457 BP: 115/84 BP Location: Right arm Patient Position: Sitting BP Cuff Size: Adult Pulse: 90 SpO2: 100% Weight: 160 lb (72.6 kg) Height: 5' 2 (1.575 m) Physical Exam Constitutional: Appearance: Normal appearance. HENT: Head: Normocephalic and atraumatic. Nose: Nose normal. Eyes: Conjunctiva/sclera: Conjunctivae normal. Pupils: Pupils are equal, round, and reactive to light. Neck: Comments: JVD to jaw Cardiovascular: Rate and Rhythm: Normal rate and regular rhythm. Pulmonary: Effort: Pulmonary effort is normal. Breath sounds: Normal breath sounds. Abdominal: General: Bowel sounds are normal. Palpations: Abdomen is soft. Musculoskeletal: General: Normal range of motion. Cervical back: Normal range of motion and neck supple. Right lower leg: Edema (3-4 + thigh->ankle) present. Left lower leg: Edema (3-4+ thigh to ankle) present. Skin: General: Skin is warm and dry. Neurological: General: No focal deficit present. Mental Status: She is alert and oriented to person, place, and time. Psychiatric: Mood and Affect: Mood normal. Thought Content: Thought content normal. Data Reviewed and Summarized No results found for: EFBP, PLVEF, LVEFPHYS, LVEF2D, EF Review of tests/labs done/ordered within my specialty: EKG in office: SHERLEY CONTRERAS Review of tests/labs done/ordered outside my specialty: Independent interpretation of tests: Basim Joel, [employer]IST [1] Allergies Allergen Reactions Amlodipine Swelling Ciprofloxacin Other and Rash rash with 500mg dose Penicillins Other and Rash rash [2] Current Outpatient Medications: hydrocortisone (Cortef) 10 MG tablet, TAKE 2 TABLETS BY MOUTH IN THE MORNING AND TAKE 1 TABLET AT 1 IN THE EVENING, Disp: , Rfl: acetaminophen (Tylenol) 325 MG tablet, Take 650 mg by mouth every 6 hours as needed., Disp: , Rfl: apixaban (Eliquis) 5 MG tablet, Take 5 mg by mouth 2 times daily., Disp: , Rfl: ascorbic acid (Vitamin C) 1000 MG tablet, Take 1,000 mg by mouth Nightly., Disp: , Rfl: denosumab (Prolia) 60 MG/ML solution prefilled syringe, Inject 60 mg under the skin every 6 (six) months., Disp: , Rfl: lisinopril 5 MG tablet, Take 5 mg by mouth daily., Disp: , Rfl: m (more content not included)... Normal [facility] UA DIP, URINE (POC)on 2024 BILIRUBIN UA (POCT) Negative Negative [facility] CLARITY UA (POCT) Clear [facility] COLOR UA (POCT) Yellow [facility] GLUCOSE UA (POCT) Negative Negative mg/dL [facility] Hemoglobin Ql (U) Negative Negative [facility] Interpretation and review of laboratory results Abnormal [facility] KETONE UA (POCT) Negative Negative mg/dL [facility] LEUKOCYTES UA (POCT) Small Abnormal Negative [facility] NITRITE UA (POCT) Negative [facility] PH UA (POCT) 6 4.5 - 8.0 [facility] Protein Ql (U) Negative Negative mg/dL [facility] SPECIFIC GRAVITY UA (POCT) 1.01 1.005 - 1.030 [facility] UROBILINOGEN UA (POCT) 0.2 Camelia l E.U./dL [facility] Location:[facility], [address] [place] [address], [id number] [place] [address] [facility] C[facility] LINDA PERALTA ([id number]) 1945 F Date Time Provider Department 09/12/24 AMOS FLOYD INTMWS During your visit today, we recorded the following information about you: Ama iDaz RN 09/12/2024 5:03 PM Signed Pt called in and reports she has been getting a lot of UTIs and was asking if there was a specialist she should see. I told her typically they would send her to a Urologist. She said her daughter was on her MyChart and had told her that the provider had said about sending her to someone. I told her I saw that provider recommended an Allergy consult for Penicillin allergy testing, because you can grow out of that allergy. Provider didn't put in a consult for this. I didn't see anything about a Urologist. Please call and advise Pt. ROSS Richardson Amanda, RN 09/19/2024 10:42 AM Signed Pt has Urology appointment set up. Ama Diaz RN Allergies As of Date: 09/12/2024 Noted Allergy Reaction CIPRO (CIPROFLOXACIN) 07/22/2009 Comments: rash with 500mg dose PENICILLINS 06/17/2002 Comments: rash Date Reviewed: 08/29/2024 Reviewed by: Isha Wright LPN - Fully Assessed Reason for Visit: Patient Question [1477] Primary Visit Diagnosis:Recurrent UTI [N39.0] Order(s):CONSULT TO UROLOGY [9041] Order #: [id number]: 1 FUTURE Prescriptions as of 09/19/2024 - apixaban (ELIQUIS) 5 mg tab(s) Take 1 tablet by mouth two times a day. - ipratropium bromide (ATROVENT) 42 mcg (0.06 %) nasal spray Use 2 sprays in the nose four times daily. - hydrocortisone (CORTEF) 10 mg tablet Take 2 tablets by mouth every morning AND 1 tablet every evening. As directed per endocrinology.. - Ascorbic Acid 1,000 mg tablet Take 1,000 mg by mouth daily at bedtime. - Methenamine Hippurate (HIPREX) 1 gram tablet Take 1 g by mouth daily at bedtime. - simvastatin (ZOCOR) 20 mg tablet Take 1 tablet by mouth daily at bedtime. - nitroglycerin sublingual (NITROQUICK) 0.4 mg SL tablet Dissolve 1 tablet under the tongue every 5 minutes as needed. - acetaminophen (TYLENOL) 325 mg tablet Take 650 mg by mouth every 6 hours as needed. Problem List As Of Date 09/12/2024 Noted Resolved Disorder of autonomic nervous system [G90.9] 10/20/2003 Adrenal hypofunction (HCC) [E27.40] 07/24/2024 DERMATITIS NOS [L25.9] 07/18/2008 IMPAIRED RENAL FUNCT [...] Closed displaced fracture of fifth metatarsal b*03/22/2023 07/24/2024 Gait abnormality [R26.9] 03/28/2023 01/23/2024 Physical deconditioning [R53.81] 05/31/2023 01/23/2024 Weakness [R53.1] 05/31/2023 07/24/2024 NSTEMI (non-ST elevated myocardial infarction) *06/09/2023 01/23/2024 Adrenal insufficiency (HCC) [E27.40] 06/12/2023 Nonrheumatic aortic valve stenosis [I35.0] 06/30/2023 Nodule of lower lobe of right lung needing foll*06/08/2023 02/22/2024 History of DVT of lower extremity and coronary *01/23/2024 Thyroid nodule greater than or equal to 1 cm in*02/22/2024 Encounter Status:Closed by AMA DIAZ on 09/19/24 Normal [facility] Absolute lymphocyte counton 09-10-2024 Lymphocytes Auto (Unsp spec) [#/Vol] 2.14 10*3/uL 0.83-4.51 [facility] Absolute neutrophil counton 09-10-2024 Neutrophils (Bld) [#/Vol] 5.9 10*3/uL 2.0-7.7 [facility] Anion gap in Serum or Plasma on 09-10-2024 Anion gap [Moles/Vol] 13 mmol/L 5- [facility] Automated lymphocyte count a s percentage of total leukocyteson 09-10-2024 Lymphocytes/100 WBC Auto (Unsp spec) 22.3 % - [facility] BUN/creatinine ratioon 09-10 Urea nitrogen/Creatinine [Mass ratio] 19.7 mg/mg - [facility] Basic Metabolic Profile (BMP )on 09-10-2024 BUN/CRE 19.7 RATIO Normal 12-09 [facility] Comment on above: Performed By: #### L 500.2500 #### [facility] [address] [place], [address] Calcium [Mass/Vol] 9.5 mg/dL Normal 7.6-11.0 [facility] Comment on above: Performed By: #### L 500.2500 #### [facility] [address] [place], [address] Chloride [Moles/Vol] 108 mmol/L Normal 98-108 [facility] Comment on above: Performed By: #### L 500.2500 #### [facility] [address] [place], [address] CO2 [Moles/Vol] 21.8 mmol/L Normal 21.0-32.0 [facility] Comment on above: Performed By: #### L 500.2500 #### [facility] [address] [place], [address] Creatinine [Mass/Vol] 1.39 mg/dL High 0.70-1.20 [facility] Comment on above: Performed By: #### L 500.2500 #### [facility] [address] [place], [address] GAP 13 Normal 07-04 [facility] Comment on above: Performed By: #### L 500.2500 #### [facility] [address] [place], [address] GFR/1.73 sq M.predicted among non-blacks MDRD (S/P/Bld) [Vol rate/Area] 38 mL/min/{1.73_m2} Low >60 [facility] Comment on above: Result Comment: mL/m in/1.73m2 CKD-EPI Creatinine Equation (2020) Performed By: #### L 500.2500 #### [facility] [address] [place], [address] Glucose [Mass/Vol] 76 mg/dL Normal 70-99 [facility] Comment on above: Performed By: #### L 500.2500 #### [facility] [address] [place], [address] Potassium [Moles/Vol] 4.6 mmol/L Normal 3.3-5.1 [facility] Comment on above: Result Comment: Hemo lysis present, Results??could be affected. ?? Performed By: #### L 500.2500 #### [facility] [address] [place], [address] Sodium [Moles/Vol] 142 mmol/L Normal 133-145 [facility] Comment on above: Performed By: #### L 500.2500 #### [facility] [address] [place], [address] Urea nitrogen [Mass/Vol] 27 mg/dL High 4-19 [facility] Comment on above: Performed By: #### L 500.2500 #### [facility] [address] [place], [address] Basophil percentageon 09-10- 2024 Basophils/100 WBC (Bld) 0.6 % 0-1 [facility] CBC W/Diff, Automatedon 08-21 Absolute Lymph 2.14 X10 3/uL Normal 0.83-4.51 [facility] Comment on above: Performed By: #### L 500.2500 #### [facility] [address] [place], [address] Absolute Neut 5.9 X10 3/uL Normal 2.0-7.7 [facility] Comment on above: Performed By: #### L 500.2500 #### [facility] [address] [place], [address] Basophils/100 WBC (Bld) 0.6 % Normal 0-1 [facility] Comment on above: Performed By: #### L 500.2500 #### [facility] [address] [place], [address] Eosinophils/100 WBC (Bld) 4.5 % Normal 0-5 [facility] Comment on above: Performed By: #### L 500.2500 #### [facility] [address] [place], [address] Erythrocyte distribution width (RBC) [Ratio] 16.3 % High 11.6-14.6 [facility] Comment on above: Performed By: #### L 500.2500 #### [facility] [address] [place], [address] Hematocrit (Bld) [Volume fraction] 42.7 % Normal 37-47 [facility] Comment on above: Performed By: #### L 500.2500 #### [facility] [address] [place], [address] Hemoglobin (Bld) [Mass/Vol] 13.7 g/dL Normal 12.0-15.0 [facility] Comment on above: Performed By: #### L 500.2500 #### [facility] [address] [place], [address] IG% 1.800 High 0.0-0.9 [facility] Comment on above: Result Comment: IG% - Immature Granulocytes (promyelocytes, myelocytes and metamyelocytes) > 1% indicates that a LEFT SHIFT is Present. Performed By: #### L 500.2500 #### [facility] [address] [place], [address] Lymphocytes/100 WBC (Bld) 22.3 % Normal 19-41 [facility] Comment on above: Performed By: #### L 500.2500 #### [facility] [address] [place], [address] MCH (RBC) [Entitic mass] 30.5 pg Normal 27.0-32.0 [facility] Comment on above: Performed By: #### L 500.2500 #### [facility] [address] [place], [address] MCHC (RBC) [Mass/Vol] 32.1 g/dL Normal 32-36 [facility] Comment on above: Performed By: #### L 500.2500 #### [facility] [address] [place], [address] MCV (RBC) [Entitic vol] 95.1 fL Normal 81-99 [facility] Comment on above: Performed By: #### L 500.2500 #### [facility] [address] [place], [address] Monocytes/100 WBC (Bld) 9.1 % Normal 0-10 [facility] Comment on above: Performed By: #### L 500.2500 #### [facility] [address] [place], [address] Neutrophils/100 WBC (Bld) 61.7 % Normal 47-70 [facility] Comment on above: Performed By: #### L 500.2500 #### [facility] [address] [place], [address] Nucleated RBC (Bld) [#/Vol] 0 10*3/uL Normal 0-5 [facility] Comment on above: Performed By: #### L 500.2500 #### [facility] [address] [place], [address] Platelet mean volume (Bld) [Entitic vol] 11.6 fL Normal 6.2-12.0 [facility] Comment on above: Performed By: #### L 500.2500 #### [facility] [address] [place], [address] Platelets (Bld) [#/Vol] 234 10*3/uL Normal 150-450 [facility] Comment on above: Performed By: #### L 500.2500 #### [facility] [address] [place], [address] RBC (Bld) [#/Vol] 4.49 10*6/uL Normal 4.2-5.4 [facility] Comment on above: Performed By: #### L 500.2500 #### [facility] [address] [place], [address] RDW SD 57.0 fl High 35.1-43.9 [facility] Comment on above: Performed By: #### L 500.2500 #### [facility] [address] [place], [address] WBC (Bld) [#/Vol] 9.6 10*3/uL Normal 4.4-11.0 [facility] Comment on above: Performed By: #### L 500.2500 #### [facility] [address] [place], [address] Carbon dioxide, total [Moles /volume] in Central venous bloodon 09-10-2024 CO2 [Moles/Vol] 21.8 mmol/L 21.0-32.0 [facility] Chloride assayon 09-10-2024 Chloride [Moles/Vol] 108 mmol/L 98-108 [facility] Eosinophil percentageon 08-21 Eosinophils/100 WBC (Bld) 4.5 % 0-5 [facility] Erythrocyte distribution wid th ratioon 09-10-2024 Erythrocyte distribution width (RBC) [Ratio] 16.3 % High 11.6-14.6 [facility] Erythrocyte distribution wid th standard deviationon 09-10-2024 Erythrocyte distribution width (RBC) [Ratio] 57.0 fl High 35.1-43.9 [facility] Glomerular filtration rate ( GFR) estimation/1.73 sq m using serum, plasma, or whole bon 09-10-2024 GFR/1.73 sq M.predicted among non-blacks MDRD (S/P/Bld) [Vol rate/Area] 38 mL/min/{1.73_m2} Low >60 [facility] Comment on above: mL/min/1.73m2 CKD-EP I Creatinine Equation (2020) Hematocrit Auto (Bld) [Volum e fraction]on 09-10-2024 Hematocrit (Bld) [Volume fraction] 42.7 % 37-47 [facility] Hemoglobin measurementon Hemoglobin (Bld) [Mass/Vol] 13.7 g/dL 12.0-15.0 [facility] Immature granulocytes/100 WB C Auto (Bld)on 09-10-2024 Immature granulocytes/100 WBC (Bld) 1.800 % High 0.0-0.9 [facility] Comment on above: IG% - Immature Granu locytes (promyelocytes, myelocytes and metamyelocytes) > 1% indicates that a LEFT SHIFT is Present. MCV (mean corpuscular volume ) determinationon 09-10-2024 MCV (RBC) [Entitic vol] 95.1 fL 81-99 [facility] Mean corpuscular hemoglobin (MCH) determinationon 09-10-2024 MCH (RBC) [Entitic mass] 30.5 pg 27.0-32.0 [facility] Mean corpuscular hemoglobin concentration (MCHC) determinationon 09-10-2024 MCHC (RBC) [Mass/Vol] 32.1 g/dL 32-36 [facility] Mean platelet volume determi nationon 09-10-2024 Platelet mean volume (Bld) [Entitic vol] 11.6 fL 6.2-12.0 [facility] Monocyte percentageon 2024 Monocytes/100 WBC (Bld) 9.1 % 0-10 [facility] Neutrophil percentageon 08-21 Neutrophils/100 WBC (Bld) 61.7 % 47-70 [facility] Nucleated red blood cell per centageon 09-10-2024 Nucleated RBC/100 WBC (Bld) [Ratio] 0 % 0-5 [facility] Platelet counton 09-10-2024 Platelets (Bld) [#/Vol] 234 10*3/uL 150-450 [facility] Potassium measurement (mass/ volume)on 09-10-2024 Potassium (Unsp spec) [Mass/Vol] 4.6 mmol/L 3.3-5.1 [facility] Comment on above: Hemolysis present, R esults could be affected. RBC Auto (Bld) [#/Vol]on RBC (Bld) [#/Vol] 4.49 10*6/uL 4.2-5.4 [facility] Serum creatinine measurement (mass/volume)on 09-10-2024 Creatinine [Mass/Vol] 1.39 mg/dL High 0.70-1.20 [facility] Serum glucose measurement (m ass/volume)on 09-10-2024 Glucose [Mass/Vol] 76 mg/dL 70-99 [facility] Serum or plasma calcium scott urement (mass/volume)on 09-10-2024 Calcium [Mass/Vol] 9.5 mg/dL 7.6-11.0 [facility] Serum or plasma urea nitroge n measurement (mass/volume)on 09-10-2024 Urea nitrogen [Mass/Vol] 27 mg/dL High 4-19 [facility] Sodium levelon 09-10-2024 Sodium [Moles/Vol] 142 mmol/L 133-145 [facility] White blood cell (WBC) count on 09-10-2024 WBC (Bld) [#/Vol] 9.6 10*3/uL 4.4-11.0 [facility] Office Visiton 09-03-2024 Follow-up visit [id number] Ingris Peralta 1945 F Date Provider Department Center 09/03/2024 [id number] DE LA CRUZ [facility] [address] Family History Problem Relation Age of Onset Heart attack Mother Stroke Father Family Status - Relation Status Age at Mother Father Level of Service:49657 SD OFFICE/OP CONSLTJ NEW/EST PT HIGH MDM 55 MINUTES Reason for Visit and Comments: New Patient [542] Cardiac Valve Problem [1334] - Heart valve clinic [facility] Follow-up visit [id number] Ingris Peralta 1945 F Date Provider Department Center 09/03/2024 [id number]-ULYAGEQDRCAVMEMO CANAS [facility] [address] Family History Problem Relation Age of Onset Heart attack Mother Stroke Father Family Status - Relation Status Age at Mother Father Level of Service:64487 SD OFFICE/OUTPATIENT ESTABLISHED [facility] 40 MIN Reason for Visit and Comments: New Patient [542] Cardiac Valve Problem [1334] - Heart valve clinic [facility] Progress Noteon 09-03-2024 Progress Note [facility]: Cardiothoracic Surgery Multidisciplinary Heart Valve Clinic Date: 09/03/24 Patient:Linda Peralta 1945 79 y.o. female [id number] Subjective: HPI: Linda Peralta [address] Marte is being evaluated for aortic valve stenosis. Echocardiogram completed on 07/03/24 showed moderate to severe aortic valve stenosis with mean gradient 39 mm Hg. Per note, patient with past medical history significant for STEMI 2009, HLD, DVT, PE, Plumas's Disease, CKD, s/p left nephrectomy and right partial nephrectomy, mitral valve prolapse, and aortic valve stenosis. Pt underwent TOMI on 07/03/24 which demonstrated LVEF 45%, 1-2+ WI, stage 1 diastolic dysfunction, moderately severe aortic valve stenosis with mean gradient 39 mmHg. Pt underwent heart catheterization 08/05/24 which demonstrated normal coronary arteries and moderate to severe aortic valve stenosis with recommendation for TAVR and/or CTS consult for AVR and MVR. She had a recent admission for UTI after her heart cath and developed extensive bilateral acute DVTs after stopping coumadin for 5 days. She complains of SOB with moderate activity. [Medical History] [Medical History] Past Medical History No past medical history on file. Blood thinner - warfarin Cardiac Catheterization 08/05/24 Transesophageal Echocardiogram 07/03/24 Review of Systems Constitutional: Negative for activity change, chills, diaphoresis, fatigue and fever. HENT: Negative for nosebleeds and trouble swallowing. Eyes: Negative for discharge and visual disturbance. Respiratory: Positive for shortness of breath. Negative for apnea, cough, chest tightness and wheezing. Cardiovascular: Positive for leg swelling (recent DVT). Negative for chest pain and palpitations. Gastrointestinal: Negative for abdominal distention, abdominal pain, blood in stool, diarrhea, nausea and vomiting. Endocrine: Negative for cold intolerance and heat intolerance. Genitourinary: Negative for hematuria. Musculoskeletal: Positive for gait problem (uses cane). Negative for myalgias. Skin: Negative for color change and rash. Neurological: Positive for weakness (legs). Negative for dizziness, seizures, syncope, facial asymmetry, speech difficulty, light-headedness, numbness and headaches. Hematological: Does not bruise/bleed easily. Psychiatric/Behavioral: Negative for dysphoric mood. Allergies: Amlodipine, Ciprofloxacin, and Penicillins Past Medical History: has no past medical history on file. Past Surgical History: has a past surgical history that includes laparoscopic nephrectomy (historical) (Left); Total abdominal hysterectomy; Bladder repair; and hx cystectomy (historical). Social History: reports that she has never smoked. She has never used smokeless tobacco. She reports that she does not drink alcohol and does not use drugs. Family History: family history includes Heart attack in her mother; Stroke in her father. Medications: Prior to Admission medications Medication Sig Start Date End Date Taking? Authorizing Provider acetaminophen (Tylenol) 325 MG tablet Take 650 mg by mouth every 6 hours as needed. Historical Provider, ascorbic acid (Vitamin C) 1000 MG tablet Take 1,000 mg by mouth Nightly. 12/14/23 Historical Provider, denosumab (Prolia) 60 MG/ML solution prefilled syringe Inject 60 mg under the skin every 6 (six) months. Historical Provider, hydrocortisone (Cortef) 10 MG tablet TAKE 2 TABLETS BY MOUTH IN THE MORNING AND TAKE 1 TABLET AT 1 IN THE EVENING 07/24/24 Historical ProviderMD lisinopril 5 MG tablet Take 5 mg by mouth daily. Historical Provider, methenamine hippurate (Hiprex) 1 g tablet Take 1 g by mouth Nightly. 12/14/23 Historical Provider, nitroglycerin (Nitrostat) 0.4 MG SL tablet TAKE 1 TABLET BY MOUTH EVERY 5-15 MINUTES NEEDED for cardiac or chest pain Historical Provider, simvastatin (Zocor) 20 MG tablet Take 20 mg by mouth Nightly. 12/07/23 Historical ProviderMD warfarin (Coumadin) 2.5 MG tablet TAKE 1 TABLET BY MOUTH DAILY AT 5PM Historical Provider, Objective: There were no vitals taken for this visit. @[id number]@ Physical Exam Constitutional: Appearance: Normal appearance. HENT: Head: Normocephalic and atraumatic. Mouth/Throat: Mouth: Mucous membranes are moist. Pharynx: Oropharynx is clear. Eyes: Extraocular Movements: Extraocular movements intact. Conjunctiva/sclera: Conjunctivae normal. Pupils: Pupils are equal, round, and reactive to light. Cardiovascular: Rate and Rhythm: Normal rate and regular rhythm. Heart sounds: Murmur heard. Comments: Systolic murmur with absent S2 Pulmonary: Effort: Pulmonary effort is normal. Breath sounds: Normal breath sounds. Abdominal: General: Abdomen is flat. Palpations: Abdomen is soft. Musculoskeletal: General: Normal range of motion. Cervical back: Normal range of motion and neck supple (more content not included)... Normal [facility] [facility] [facility] Progress Note [facility] [address] [facility] [address] Dept: [phone] Dept Visit type: New : 1945 Reason for Visit: New Patient and Cardiac Valve Problem (Heart valve clinic) Assessment and Plan 1. Nonrheumatic aortic valve stenosis - CBC auto differential - Basic metabolic panel - ECG 12 lead - CLINIC PERFORMED This is a very pleasant 79y/o female with severe and symptomatic aortic stenosis. She is in need of aortic valve replacement. We will get a CTA for TAVR planning. With her age and comorbidities, TAVR will be preferred over surgical AVR, presuming anatomy is favorable. This decision was made after multidisciplinary discussion, using a shared decision making strategy. CT surgery also saw patient to aide in discussion. In regards to some special considerations, we will need to make sure her UTI is fully treated before proceeding with TAVR. We will contact her enterprise application analyst for recommendations about steroid dosing around the time of her procedure. I would also like to make sure her LE edema has significantly improved before proceeding (if it doesn't do so on OAC, may need to see vascular surgery first). When we do perform the TAVR, will likely place pacer from the IJ to as to avoid an IVC filter, as this may be partially or fully occluded. It was a pleasure seeing your patient in the office today. Please do not hesitate to call me with any questions. Follow up for Recheck after CTA and after LE swelling has improved. Subjective HPI Linda Peralta is a very pleasant 79 y.o. female who is here for evaluation of her aortic valve disease. her symptoms include progressive dyspnea on exertion and fatigue. her most recent echo shows severe aortic stenosis with EF 45%, mean gradient 39mmHg. Cath showed non-obstructive CAD. She has struggled recently with recurrent UTIs. Also, she has a history of prior DVT and has an IVC filter. Her coumadin was held for her cath, and two days later she presented with extensive bilateral lower extremity DVTs with hot and swollen legs (slowly improving but still markedly swollen). Now on eliquis. She also has moris's disease and is on chronic hydrocortisone. Review of Systems Constitutional: Negative for activity change, chills, diaphoresis, fatigue and fever. HENT: Negative for nosebleeds and trouble swallowing. Eyes: Negative for discharge and visual disturbance. Respiratory: Positive for shortness of breath. Negative for apnea, cough, chest tightness and wheezing. Cardiovascular: Positive for leg swelling (recent DVT). Negative for chest pain and palpitations. Gastrointestinal: Negative for abdominal distention, abdominal pain, blood in stool, diarrhea, nausea and vomiting. Endocrine: Negative for cold intolerance and heat intolerance. Genitourinary: Negative for hematuria. Musculoskeletal: Positive for gait problem (Uses cane). Negative for myalgias. Skin: Negative for color change and rash. Neurological: Positive for weakness (legs). Negative for dizziness, seizures, syncope, facial asymmetry, speech difficulty, light-headedness, numbness and headaches. Hematological: Does not bruise/bleed easily. Psychiatric/Behavioral: Negative for dysphoric mood. Allergies[1] Current Medications[2] Medical History[3] Social History Tobacco Use Smoking status: Never Smokeless tobacco: Never Substance Use Topics Alcohol use: Never Surgical History[4] Family History[5] Objective Vitals: 09/03/24 1529 BP: 124/86 BP Location: Right arm Patient Position: Sitting BP Cuff Size: Adult Pulse: 98 Weight: 156 lb (70.8 kg) Height: 5' 2 (1.575 m) Physical Exam Constitutional: General: She is not in acute distress. Appearance: She is not diaphoretic. HENT: Head: Normocephalic. Nose: Nose normal. Mouth/Throat: Mouth: Mucous membranes are moist. Pharynx: No oropharyngeal exudate. Eyes: General: No scleral icterus. Right eye: No discharge. Left eye: No discharge. Neck: Thyroid: No thyromegaly. Vascular: No carotid bruit or JVD. Cardiovascular: Rate and Rhythm: Normal rate and regular rhythm. Pulses: Normal pulses. Heart sounds: Murmur heard. Systolic murmur is present with a grade of 2/6. Pulmonary: Effort: Pulmonary effort is normal. Breath sounds: Normal breath sounds. Abdominal: General: Bowel sounds are normal. There is no distension. Palpations: There is no hepatomegaly. Tenderness: There is no abdominal tenderness. Musculoskeletal: General: Normal range of motion. Cervical back: Normal range of motion. Right lower leg: No edema. Left lower leg: No edema. Skin: General: Skin is warm and dry. Neurological: Mental Status: She is oriented to person, place, and time. Psychiatric: Mood and Affect: Mood normal. Behavior: Behavior normal. Data Reviewed and Summarized No results found for: EFBP, PLVEF, LVEFPHYS, LVEF (more content not included)... Normal [facility] Progress Noteon 08-30-2024 Progress Note Hermes Peralta 79 y .o. referred by Dr. Marte is being evaluated for aortic valve stenosis. Echocardiogram completed on 07/03/24 showed moderate to severe aortic valve stenosis with mean gradient 39 mm Hg. Per note, patient with past medical history significant for STEMI 2009, HLD, DVT, PE, Plumas's Disease, CKD, s/p left nephrectomy and right partial nephrectomy, mitral valve prolapse, and aortic valve stenosis. Pt underwent TOMI on 07/03/24 which demonstrated LVEF 45%, 1-2+ WI, stage 1 diastolic dysfunction, moderately severe aortic valve stenosis with mean gradient 39 mmHg. Pt underwent heart catheterization 08/05/24 which demonstrated normal coronary arteries and moderate to severe aortic valve stenosis with recommendation for TAVR and/or CTS consult for AVR and MVR. Medical History[1] Blood thinner - warfarin Cardiac Catheterization 08/05/24 Transesophageal Echocardiogram 07/03/24 [1] No past medical history on file. Normal [facility] Bacteria Ur Culton 5 Bacteria identified Cx Nom (U) ORGANISM ID: 1 50,000-<100,000 CFU/ml Streptococcus anginosus No susceptibility testing done. Normal [facility] Comment on above: Performed By: #### 6 30-4 ####[facility] LABCLIA [id number] [address] STATES OF [facility] CNOVon 08-29-2024 CNOV Office Visit (INTMWS ) -------- LINDA PERALTA ([id number]) 1945 F Date Time Provider Department 08/29/24 10:40 AM AMOS FLOYD INTMWS During your visit today, we recorded the following information about you: Pulse Respiration Blood pressure Weight 71/minute 20/minute 135/83 71.4 kg Amos Floyd MD 08/29/2024 11:26 AM Signed This note was created using [employer]. Subjective Linda Peralta is a 79 year old female here with daughter. She was doing better. Blood pressure was elevating now. Her enterprise application analyst, Dr. Gregory, did not need to call in a medication to raise her blood pressure. Edema was improving. Dysuria resolved. She was scheduled to see cardiac surgeons in [facility] next week for possible TAVR. Review of Systems Constitutional: Positive for fatigue. Negative for chills and fever. Respiratory: Negative for shortness of breath. Cardiovascular: Positive for leg swelling. Negative for chest pain and palpitations. Genitourinary: Negative for difficulty urinating and dysuria. ACTIVE PROBLEM LIST Disorder of Autonomic Nervous [...] use: No Current Outpatient Medications Medication Sig apixaban (ELIQUIS) 5 mg (74 tabs) Take 10 mg by mouth two times a day. ipratropium bromide (ATROVENT) 42 mcg (0.06 %) nasal spray Use 2 sprays in the nose four times daily. hydrocortisone (CORTEF) 10 mg tablet Take 2 tablets by mouth every morning AND 1 tablet every evening. As directed per endocrinology.. Ascorbic Acid 1,000 mg tablet Take 1,000 mg by mouth daily at bedtime. Methenamine Hippurate (HIPREX) 1 gram tablet Take 1 g by mouth daily at bedtime. simvastatin (ZOCOR) 20 mg tablet Take 1 tablet by mouth daily at bedtime. nitroglycerin sublingual (NITROQUICK) 0.4 mg SL tablet Dissolve 1 tablet under the tongue every 5 minutes as needed. acetaminophen (TYLENOL) 325 mg tablet Take 650 mg by mouth every 6 hours as needed. No current facility-administered medications for this visit. Objective BP 135/83 (BP Site: Left Arm, BP Position: Sitting, BP Cuff Size: Large Adult) Pulse 71 Resp 20 Wt 71.4 kg (157 lb 6.5 oz) BMI 28.79 kg/m? Physical Exam Constitutional: General: She is not in acute distress. Cardiovascular: Heart sounds: S1 normal and S2 normal. Murmur (at base) heard. Systolic murmur is present with a grade of 2/6. Pulmonary: Breath sounds: Normal breath sounds. Musculoskeletal: General: No tenderness. Right lower le+ Pitting Edema present. Left lower le+ Pitting Edema present. Neurological: General: No focal deficit present. Mental Status: She is alert. Comments: Ambulatory with cane. Latest Ref Rng 08/29/2024 GLUCOSE UA (POCT) Negative mg/dL Negative BILIRUBIN UA (POCT) Negative Negative KETONE UA (POCT) Negative mg/dL Negative SPECIFIC GRAVITY UA (POCT) 1.005 - 1.030 1.020 HEMOGLOBIN/BLOOD UA (POCT) Negative Negative PH UA (POCT) 4.5 - 8.0 6.5 PROTEIN UA (POCT) Negative mg/dL 30 ! UROBILINOGEN UA (POCT) Normal E.U./dL 0.2 NITRITE UA (POCT) Negative Negative LEUKOCYTES UA (POCT) Negative Small ! COLOR UA (POCT) Yellow CLARITY UA (POCT) Clear Legend: ! Abnormal Assessment and Plan 1. Acute deep vein thrombosis (DVT) of proximal vein of both lower extremities (HCC) - ICD9: 453.41, ICD10: I82.4Y3 (primary diagnosis) - Continue lifelong anticoagulation. Call for maintenance refills. - APIXABAN 5 MG TABLET 2. Adrenal insufficiency (HCC) - ICD9: 255.41, ICD10: E27.40 - Improved. Hypotension resolved. - Continue maintenance Cortef. 3. Primary hypertension - ICD9: 401.9, ICD10: I10 - Controlled - Continue to monitor off medication. 4. History of UTI - ICD9: V13.02, ICD10: Z87.440 History of urosepsis. Recommendations will depend on culture. - UA DIP, URINE (POC) - BACTERIAL CULTURE, URINE 5. Nonrheumatic aortic valve stenosis - ICD9: 424.1, ICD10: I35.0 - To see cardiac surgery in [facility]. 6. Thyroid nodule greater than or equal to 1 cm in diameter incidentally noted on imaging study, right side. - ICD9: 241.0, ICD10: E04.1 - We reviewed this. Dr. Gregory palpated her thyroid and was aware. He recommended monitori (more content not included)... Normal [facility] UA DIP, URINE (POC)on 2024 BILIRUBIN UA (POCT) Negative Negative [facility] CLARITY UA (POCT) Clear [facility] COLOR UA (POCT) Yellow [facility] GLUCOSE UA (POCT) Negative Negative mg/dL [facility] Hemoglobin Ql (U) Negative Negative [facility] Interpretation and review of laboratory results Abnormal [facility] KETONE UA (POCT) Negative Negative mg/dL [facility] LEUKOCYTES UA (POCT) Small Abnormal Negative [facility] NITRITE UA (POCT) Negative [facility] PH UA (POCT) 6.5 4.5 - 8.0 [facility] Protein Ql (U) 30 mg/dL Abnormal Negative [facility] SPECIFIC GRAVITY UA (POCT) 1.02 1.005 - 1.030 [facility] UROBILINOGEN UA (POCT) 0.2 Camelia l E.U./dL [facility] Location:[facility], [address], [place], [address] [facility] POINT OF CARE [facility] CNPNon 08-19-2024 CNPN Telephone (INTMWS) -------- CORINNA Hermes ([id number]) 1945 F Date Time Provider Department 08/19/24 AMOS FLOYD INTMWS During your visit today, we recorded the following information about you: Va Aguayo RN 08/19/2024 3:23 PM Signed Patient's daughter Souleymane Lopez calling in. Pt was seen by Dr. Floyd last week on 08/14/24 for hospital follow up. Daughter Souleymane states patient completed her 5 days of keflex for UTI that the hospital discharged her with last week and pt continues with urinary pressure. She is also having urinary incontinence which she does not typically have, per daughter. Weakness continues but not severe. Daughter states she does not believe pt has a fever, no chills, no nausea or confusion. Daughter states she is concerned that patient may become septic again. 1) Daughter asking Dr. Floyd to advise on pt's recent abnormal urine culture from 08/14/24. 2) Asking if PCP wishes to order another antibiotic? Please advise daughter Souleymane [phone]. Amos Floyd MD 08/19/2024 5:46 PM Signed The following approved medication requests have been transmitted electronically. Requested Prescriptions Signed Prescriptions Disp Refills nitrofurantoin monohydrate and macrocrystal (MACROBID) 100 mg capsule 14 capsule 0 Sig: Take 1 capsule by mouth two times a day for 7 days. Authorizing Provider: AMOS FLOYD Hold methenamine hippurate one tablet at bedtime prescribed by urology, while taking nitrofurantoin. Resume after antibiotic is done. MD Joe Gil Amanda, RN 08/19/2024 6:30 PM Signed Pt's daughter called and is notified of providers message and instructions. She voices understanding. Ama Diaz RN Allergies As of Date: 08/19/2024 Noted Allergy Reaction CIPRO (CIPROFLOXACIN) 07/22/2009 Comments: rash with 500mg dose PENICILLINS 06/17/2002 Comments: rash Date Reviewed: 08/14/2024 Reviewed by: Isha Wright LPN - Fully Assessed Reason for Visit: Patient Update [1234] Primary Visit Diagnosis:Acute cystitis without hematuria [N30.00] Order(s):nitrofurantoin monohydrate and macrocrystal (MACROBID) 100 mg capsuleTake 1 capsule by mouth two times a day for 7 days.Disp: 14 capsuleRfl: 0 Prescriptions as of 08/19/2024 - nitrofurantoin monohydrate and macrocrystal (MACROBID) 100 mg capsule Take 1 capsule by mouth two times a day for 7 days. - apixaban (ELIQUIS) 5 mg (74 tabs) Take 10 mg by mouth two times a day. - traMADol (ULTRAM) 50 mg tablet Take 1 tablet by mouth three times a day as needed for pain for up to 5 days. - ipratropium bromide (ATROVENT) 42 mcg (0.06 %) nasal spray Use 2 sprays in the nose four times daily. - hydrocortisone (CORTEF) 10 mg tablet Take 2 tablets by mouth every morning AND 1 tablet every evening. As directed per endocrinology.. - Ascorbic Acid 1,000 mg tablet Take 1,000 mg by mouth daily at bedtime. - Methenamine Hippurate (HIPREX) 1 gram tablet Take 1 g by mouth daily at bedtime. - simvastatin (ZOCOR) 20 mg tablet Take 1 tablet by mouth daily at bedtime. - nitroglycerin sublingual (NITROQUICK) 0.4 mg SL tablet Dissolve 1 tablet under the tongue every 5 minutes as needed. - acetaminophen (TYLENOL) 325 mg tablet Take 650 mg by mouth every 6 hours as needed. Problem List As Of Date 08/19/2024 Noted Resolved Disorder of autonomic nervous system [G90.9] 10/20/2003 Adrenal hypofunction (HCC) [E27.40] 07/24/2024 DERMATITIS NOS [L25.9] 07/18/2008 IMPAIRED RENAL FUNCT [...] 02/27/2017 Personal history of colonic polyps [Z86.0100] 03/10 (more content not included)... Normal [facility] 36on 08-16-2024 36 Mailed PICK UP packet and made chart Normal [facility] Bacteria Ur Culton Bacteria identified Cx Nom (U) CULTURE, URINE: Mixed microbiota, including predominantly: ORGANISM ID: 1 50,000-<100,000 CFU/ml Enterococcus faecalis Morphology 1. Cephalosporins, clindamycin, and TMP-SMX are not effective for the treatment of enterococcal infections. ORGANISM ID: 2 50,000-<100,000 CFU/ml Enterococcus faecalis Morphology 2. Cephalosporins, clindamycin, and TMP-SMX are not effective for the treatment of enterococcal infections. ORGANISM ID: 1 (ENTEROCOCCUS FAECALIS) ANTIBIOTIC INTERPRETATION EMILIA STATUS REFERENCE RANGE Ampicillin S <=2 F Susceptible <=8 , Resistant >8 Vancomycin S 1 F Susceptible <=4 , Intermediate >4 , Resistant >16 Nitrofurantoin S <=16 F Susceptible <=32 , Intermediate >32 , Resistant >64 ORGANISM ID: 2 (ENTEROCOCCUS FAECALIS) ANTIBIOTIC INTERPRETATION EMILIA STATUS REFERENCE RANGE Ampicillin S <=2 F Susceptible <=8 , Resistant >8 Vancomycin S 1 F Susceptible <=4 , Intermediate >4 , Resistant >16 Nitrofurantoin S <=16 F Susceptible <=32 , Intermediate >32 , Resistant >64 Abnormal [facility] Comment on above: Performed By: #### 6 30-4 ####[facility] LABIA [id number] [address] OF [facility] CNOVon 08-14-2024 CNOV Office Visit (INTMWS ) -------- LINDA PERALTA ([id number]) 1945 F Date Time Provider Department 08/14/24 11:20 AM AMOS FLOYD INTMWS During your visit today, we recorded the following information about you: Temperature Pulse Respiration Blood pressure 98.2 degrees 88/minute 18/minute 98/64 Weight 71.2 kg Amos Floyd MD 08/15/2024 7:19 AM Signed This note was created using [employer]. Subjective Patient presents with: Hospital F/U Linda Peralta is a 79 year old female here with her daughter. She had a heart catheterization 08/05/24 showing minimal CAD and severe . She was being referred for TAVR to a specialist in [facility]. She developed weakness 08/07/24 and was found to be bradycardic and hypotensive. She was admitted with concerns for UTI, urosepsis, non STEMI, and Moris's. She was treated with IV fluids, antibiotic for Klebsiella aerogenes UTI, and IV hydrocortisone. She was noted to have edema and found to have acute DVT, in the setting of recent holding of chcf warfarin for the heart cath. She was transitioned to apixiban and discharged on Bactrim. Lisinopril and warfarin were discontinued. She was better, but not back to baseline. She still had some dysuria, and they were concerned about continuing the steroid taper as her blood pressure was still low. Confounding the situation was she brought in a bottle of amlodipine, which she may be taking unaware this was for hypertension. Amlodipine may have been discontinued prior to admission as it was not listed in her admission record. She was also limited by moderate leg pain from edema. Review of Systems Constitutional: Positive for fatigue. Negative for appetite change and fever. Respiratory: Negative for chest tightness and shortness of breath. Cardiovascular: Positive for leg swelling. Negative for chest pain and palpitations. Gastrointestinal: Negative for abdominal pain, blood in stool, diarrhea, nausea and vomiting. Genitourinary: Negative for difficulty urinating and dysuria. Musculoskeletal: Positive for myalgias (calves). Neurological: Negative for dizziness, syncope, light-headedness and headaches. ACTIVE PROBLEM LIST Disorder of [...] use: No Current Outpatient Medications Medication Sig apixaban (ELIQUIS) 5 mg (74 tabs) Take 10 mg by mouth two times a day. ipratropium bromide (ATROVENT) 42 mcg (0.06 %) nasal spray Use 2 sprays in the nose four times daily. hydrocortisone (CORTEF) 10 mg tablet Take 2 tablets by mouth every morning AND 1 tablet every evening. As directed per endocrinology.. Ascorbic Acid 1,000 mg tablet Take 1,000 [...] the tongue every 5 minutes as needed. acetaminophen (TYLENOL) 325 mg tablet Take 650 mg by mouth every 6 hours as needed. warfarin (COUMADIN) 2.5 mg tablet Take 2.5 mg by mouth. 2.5 mg daily except 5 mg on Mondays (Patient not taking: Reported on 08/14/2024) No current facility-administered medications for this visit. Objective BP 98/64 Pulse 88 Temp 36.8 ?C (98.2 ?F) (Temporal) Resp 18 Wt 71.2 kg (156 lb 15.5 oz) BMI 28.71 kg/m? Physical Exam Constitutional: General: She is not in acute distress. Appearance: She is not ill-appearing or diaphoretic. HENT: Mouth/Throat: Mouth: Mucous membranes are moist. Eyes: Conjunctiva/sclera: Conjunctivae normal. Cardiovascular: Rate and Rhythm: Normal rate. Rhythm irregular. Heart sounds: S2 normal. Murmur heard. Systolic murmur is present with a grade of 2/6. Pulmonary: Breath sounds: Normal breath sounds. Abdominal: Tenderness: There is no abdominal tenderness. Musculoskeletal: Right lower le+ Pitting Edema present. Left lower le+ Pitting Edema present. Neurolo (more content not included)... Normal [facility] UA DIP, URINE (POC)on 2024 BILIRUBIN UA (POCT) Negative Negative [facility] CLARITY UA (POCT) Clear [facility] COLOR UA (POCT) Yellow [facility] GLUCOSE UA (POCT) Negative Negative mg/dL [facility] Hemoglobin Ql (U) Negative Negative [facility] Interpretation and review of laboratory results Abnormal [facility] KETONE UA (POCT) Negative Negative mg/dL [facility] LEUKOCYTES UA (POCT) Trace [facility]normal [facility] NITRITE UA (POCT) Negative Negative [facility] PH UA (POCT) 6 4.5 - 8.0 [facility] Protein Ql (U) 30 mg/dL Abnormal Negative [facility] SPECIFIC GRAVITY UA (POCT) 1.02 1.005 - 1.030 [facility] UROBILINOGEN UA (POCT) 0.2 Camelia l E.U./dL [facility] Location:[facility], [address] [place] [address], [place], [address] [facility] POINT OF CARE [facility] 36on 08-13-2024 36 Patient sched in 09/03/24 w/ PB/EE. I need to make chart and mail PICK UP packet. Normal [facility] SHS Culture, Blood (WB)on 2024 CUB Blood cultures x2, f rom two different sites No growth in 5 days. Normal [facility] Comment on above: Performed By: #### M 200.1000 ####[facility] [id number] [place], [place], [address] Performed By: #### L 501.4021, M200.1000 ####[facility] [id number] [facility] [place], [address] Absolute lymphocyte countOrd ered By: Ted Toro on 08-09-2024 Lymphocytes Auto (Unsp spec) [#/Vol] 0.85 10*3/uL 0.83-4.51 [facility] Absolute neutrophil countOrd ered By: Ted Toro on 08-09-2024 Neutrophils (Bld) [#/Vol] 9.3 10*3/uL High 2.0-7.7 [facility] Anion gap in Serum or Plasma Ordered By: Ted Toro on 08-09-2024 Anion gap [Moles/Vol] 11 mmol/L 5-15 [facility] Automated lymphocyte count a s percentage of total leukocytesOrdered By: Ted Toro on 08-09-2024 Lymphocytes/100 WBC Auto (Unsp spec) 7.4 % Low 19-41 [facility] BUN/creatinine ratioOrdered By: Ted Toro on 08-09-2024 Urea nitrogen/Creatinine [Mass ratio] 30.7 mg/mg High 10-20 [facility] Basic Metabolic Profile (BMP )on 08-09-2024 BUN/CRE 30.7 RATIO High 12-09 [facility] Comment on above: Performed By: #### L 500.2500, L100.0100 #### [facility] Laboratory [address] [place], [address] Calcium [Mass/Vol] 8.5 mg/dL Normal 7.6-11.0 [facility] Comment on above: Performed By: #### L 500.2500, L100.0100 #### [facility] [address] [place], [address] Chloride [Moles/Vol] 111 mmol/L High 98-108 [facility] Comment on above: Performed By: #### L 500.2500, L100.0100 #### [facility] [address] [place], [address] CO2 [Moles/Vol] 15.0 mmol/L Low 21.0-32.0 [facility] Comment on above: Performed By: #### L 500.2500, L100.0100 #### [facility] [address] [place], [address] Creatinine [Mass/Vol] 1.35 mg/dL High 0.70-1.20 [facility] Comment on above: Performed By: #### L 500.2500, L100.0100 #### [facility] [address] [place], [address] ECRCL 30.53 ml/min Low 50-250 [facility] Comment on above: Performed By: #### L 500.2500, L100.0100 #### [facility] [address] [place], [address] GAP 11 Normal 5-15 [facility] Comment on above: Performed By: #### L 500.2500, L100.0100 #### [facility] [address] [place], [address] GFR/1.73 sq M.predicted among non-blacks MDRD (S/P/Bld) [Vol rate/Area] 39 mL/min/{1.73_m2} Low >60 [facility] Comment on above: Result Comment: mL/m in/1.73m2 CKD-EPI Creatinine Equation (2020) Performed By: #### L 500.2500, L100.0100 #### [facility] [address] [place], [address] Glucose [Mass/Vol] 145 mg/dL High 70-99 [facility] Comment on above: Performed By: #### L 500.2500, L100.0100 #### [facility] [address] [place], [address] Potassium [Moles/Vol] 4.9 mmol/L Normal 3.3-5.1 [facility] Comment on above: Performed By: #### L 500.2500, L100.0100 #### [facility] [address] [place], [address] Sodium [Moles/Vol] 137 mmol/L Normal 133-145 [facility] Comment on above: Performed By: #### L 500.2500, L100.0100 #### [facility] [address] [place], [address] Urea nitrogen [Mass/Vol] 41 mg/dL High 4-19 [facility] Comment on above: Performed By: #### L 500.2500, L100.0100 #### [facility] [address] [place], [address] Basophil percentageOrdered B y: Ted Toro on 08-09-2024 Basophils/100 WBC (Bld) 0.3 % 0-1 [facility] CBC W/Diff, Automatedon - 0-2024 Absolute Lymph 0.85 X10 3/uL Normal 0.83-4.51 [facility] Comment on above: Performed By: #### L 500.2500, L100.0100 #### [facility] [address] [place], [address] Absolute Neut 9.3 X10 3/uL High 2.0-7.7 [facility] Comment on above: Performed By: #### L 500.2500, L100.0100 #### [facility] [address] [place], [address] Basophils/100 WBC (Bld) 0.3 % Normal 0-1 [facility] Comment on above: Performed By: #### L 500.2500, L100.0100 #### [facility] [address] [place], [address] Eosinophils/100 WBC (Bld) 0.2 % Normal 0-5 [facility] Comment on above: Performed By: #### L 500.2500, L100.0100 #### [facility] [address] [place], [address] Erythrocyte distribution width (RBC) [Ratio] 15.9 % High 11.6-14.6 [facility] Comment on above: Performed By: #### L 500.2500, L100.0100 #### [facility] [address] [place], [address] Hematocrit (Bld) [Volume fraction] 40.4 % Normal 37-47 [facility] Comment on above: Performed By: #### L 500.2500, L100.0100 #### [facility] [address] [place], [address] Hemoglobin (Bld) [Mass/Vol] 13.3 g/dL Normal 12.0-15.0 [facility] Comment on above: Performed By: #### L 500.2500, L100.0100 #### [facility] [address] [place], [address] IG% 1.600 High 0.0-0.9 [facility] Comment on above: Result Comment: IG% - Immature Granulocytes (promyelocytes, myelocytes and metamyelocytes) > 1% indicates that a LEFT SHIFT is Present. Performed By: #### L 500.2500, L100.0100 #### [facility] [address] [place], [address] Lymphocytes/100 WBC (Bld) 7.4 % Low 19-41 [facility] Comment on above: Performed By: #### L 500.2500, L100.0100 #### [facility] [address] [place], [address] MCH (RBC) [Entitic mass] 30.1 pg Normal 27.0-32.0 [facility] Comment on above: Performed By: #### L 500.2500, L100.0100 #### [facility] [address] [place], [address] MCHC (RBC) [Mass/Vol] 32.9 g/dL Normal 32-36 [facility] Comment on above: Performed By: #### L 500.2500, L100.0100 #### [facility] [address] [place], [address] MCV (RBC) [Entitic vol] 91.4 fL Normal 81-99 [facility] Comment on above: Performed By: #### L 500.2500, L100.0100 #### [facility] [address] [place], [address] Monocytes/100 WBC (Bld) 9.5 % Normal 0-10 [facility] Comment on above: Performed By: #### L 500.2500, L100.0100 #### [facility] [address] [place], [address] Neutrophils/100 WBC (Bld) 81.0 % High 47-70 [facility] Comment on above: Performed By: #### L 500.2500, L100.0100 #### [facility] [address] [place], [address] Nucleated RBC (Bld) [#/Vol] 0 10*3/uL Normal 0-5 [facility] Comment on above: Performed By: #### L 500.2500, L100.0100 #### [facility] [address] [place], [address] Platelet mean volume (Bld) [Entitic vol] 12.0 fL Normal 6.2-12.0 [facility] Comment on above: Performed By: #### L 500.2500, L100.0100 #### [facility] [address] [place], [address] Platelets (Bld) [#/Vol] 118 10*3/uL Low 150-450 [facility] Comment on above: Performed By: #### L 500.2500, L100.0100 #### [facility] [address] [place], [address] RBC (Bld) [#/Vol] 4.42 10*6/uL Normal 4.2-5.4 [facility] Comment on above: Performed By: #### L 500.2500, L100.0100 #### [facility] [address] [place], [address] RDW SD 53.7 fl High 35.1-43.9 [facility] Comment on above: Performed By: #### L 500.2500, L100.0100 #### [facility] [address] [place], [address] WBC (Bld) [#/Vol] 11.5 10*3/uL High 4.4-11.0 [facility] Comment on above: Performed By: #### L 500.2500, L100.0100 #### [facility] [address] [place], [place], [address] Carbon dioxide, total [Moles /volume] in Central venous bloodOrdered By: Ted Toro on 08-09-2024 CO2 [Moles/Vol] 15.0 mmol/L Low 21.0-32.0 [facility] Chloride assayOrdered By: Deidre Toro on 08-09-2024 Chloride [Moles/Vol] 111 mmol/L High 98-108 [facility] Eosinophil percentageOrdered By: Ted Toro on 08-09-2024 Eosinophils/100 WBC (Bld) 0.2 % 0-5 [facility] Erythrocyte distribution wid th ratioOrdered By: Ted Toro on 08-09-2024 Erythrocyte distribution width (RBC) [Ratio] 15.9 % High 11.6-14.6 [facility] Erythrocyte distribution wid th standard deviationOrdered By: Ted Toro on 08-09-2024 Erythrocyte distribution width (RBC) [Ratio] 53.7 fl High 35.1-43.9 [facility] Glomerular filtration rate ( GFR) estimation/1.73 sq m using serum, plasma, or whole bOrdered By: Ted Toro on 08-09-2024 GFR/1.73 sq M.predicted among non-blacks MDRD (S/P/Bld) [Vol rate/Area] 39 mL/min/{1.73_m2} Low >60 [facility] Comment on above: mL/min/1.73m2 CKD-EP I Creatinine Equation (2020) Hematocrit Auto (Bld) [Volum e fraction]Ordered By: Ted Toro on 08-09-2024 Hematocrit (Bld) [Volume fraction] 40.4 % 37-47 [facility] Hemoglobin measurementOrdere d By: Ted Toro on 08-09-2024 Hemoglobin (Bld) [Mass/Vol] 13.3 g/dL 12.0-15.0 [facility] Immature granulocytes/100 WB C Auto (Bld)Ordered By: Ted Toro on 08-09-2024 Immature granulocytes/100 WBC (Bld) 1.600 % High 0.0-0.9 [facility] Comment on above: IG% - Immature Granu locytes (promyelocytes, myelocytes and metamyelocytes) > 1% indicates that a LEFT SHIFT is Present. MCV (mean corpuscular volume ) determinationOrdered By: Ted Toro on 08-09-2024 MCV (RBC) [Entitic vol] 91.4 fL 81-99 [facility] Mean corpuscular hemoglobin (MCH) determinationOrdered By: Ted Toro on 08-09-2024 MCH (RBC) [Entitic mass] 30.1 pg 27.0-32.0 [facility] Mean corpuscular hemoglobin concentration (MCHC) determinationOrdered By: Ted Toro on 08-09-2024 MCHC (RBC) [Mass/Vol] 32.9 g/dL 32-36 [facility] Mean platelet volume determi nationOrdered By: Ted Toro on 08-09-2024 Platelet mean volume (Bld) [Entitic vol] 12.0 fL 6.2-12.0 [facility] Monocyte percentageOrdered B y: Ted Toro on 08-09-2024 Monocytes/100 WBC (Bld) 9.5 % 0-10 [facility] Neutrophil percentageOrdered By: Ted Toro on 08-09-2024 Neutrophils/100 WBC (Bld) 81.0 % High 47-70 [facility] Nucleated red blood cell per centageOrdered By: Ted Toro on 08-09-2024 Nucleated RBC/100 WBC (Bld) [Ratio] 0 % 0-5 [facility] Platelet countOrdered By: Deidre Toro on 08-09-2024 Platelets (Bld) [#/Vol] 118 10*3/uL Low 150-450 [facility] Potassium measurement (mass/ volume)Ordered By: Ted Toro on 08-09-2024 Potassium (Unsp spec) [Mass/Vol] 4.9 mmol/L 3.3-5.1 [facility] RBC Auto (Bld) [#/Vol]Ordere d By: Ted Toro on 08-09-2024 RBC (Bld) [#/Vol] 4.42 10*6/uL 4.2-5.4 [facility] Serum creatinine measurement (mass/volume)Ordered By: Ted Toro on 08-09-2024 Creatinine [Mass/Vol] 1.35 mg/dL High 0.70-1.20 [facility] Serum glucose measurement (m ass/volume)Ordered By: Ted Toro on 08-09-2024 Glucose [Mass/Vol] 145 mg/dL High 70-99 [facility] Serum or plasma calcium scott urement (mass/volume)Ordered By: Ted Toro on 08-09-2024 Calcium [Mass/Vol] 8.5 mg/dL 7.6-11.0 [facility] Serum or plasma urea nitroge n measurement (mass/volume)Ordered By: Ted Toro on 08-09-2024 Urea nitrogen [Mass/Vol] 41 mg/dL High 4-19 [facility] Sodium levelOrdered By: Buddy Toro on 08-09-2024 Sodium [Moles/Vol] 137 mmol/L 133-145 [facility] Urine Cultureon 08-09-2024 [facility]RC Klebsiella aerogenes Moville Count >100,000 Klebsiella aerogenes: REACTION Cefepime Islt EMILIA <=0.12 cefTRIAXone Islt EMILIA <=0.25 S Ciprofloxacin Islt EMILIA <=0.06 S Gentamicin Islt EMILIA <=1 S levoFLOXacin Islt EMILIA <=0.12 S Meropenem Islt EMILIA <=0.25 S Nitrofurantoin Islt EMILIA 64 I Pip+Tazo Islt EMILIA 8 S TMP SMX Islt EMILIA <=20 S Normal [facility] Comment on above: Performed By: #### L 400.0001, M100.2200 #### [facility] Laboratory [address] [place], [address] White blood cell (WBC) count Ordered By: Ted Toro on 08-09-2024 WBC (Bld) [#/Vol] 11.5 10*3/uL High 4.4-11.0 [facility] Venous Duplex US - Spencer Extre [facility] 08-08-2024 Venous Duplex US - Spencer Extrem [facility] [address] [place] [address] Venous Duplex US - Spencer Extrem 08/09/24 0810 MR#: [id number] Acct: [id number] Name: LINDA PERALTA Rep #: [id number] : 1945 79 From: Scotty Barone MD Attending Dr: Dr. Jairo Mitchell, DO Status: DIS IN Ordering Dr: Ted Toro MD Date: 08/08/24 Location: U Sex: F C Admitted: 08/07/24 Reason For Study Reason For Study: Pain RIGHT LEFT GSV is normal. GSV is normal. Acute deep vein thrombosis is noted in the CFV. It is Acute deep vein thrombosis is noted in the CFVand dilated and NONCOMPRESSIBLE. Prox FV. It is dilated and NONCOMPRESSIBLE. Acute deep vein thrombosis is noted in the CFV, FV, Mid and Dist FV is compressible, spontaneous, phasic, POP V, T/P Trunk, Gastroc V, PTV, and Karon V. It is competent and demonstrates normal augmentation. dilated and NONCOMPRESSIBLE. POP V is compressible, spontaneous, phasic, competent Procedure and demonstrates normal augmentation. This is a venous duplex using B-mode, color flow and T/P Trunk is compressible. spectral Doppler. PTV is compressible. Exam performed portable in patient room. LT PerV is compressible. A preliminary report was called and/or faxed to [facility]. VL/Venous Duplex US - Spencer Extrem Interpretation Summary Acute deep vein thrombosis is noted in the right common femoral vein. Acute deep vein thrombosis is noted in the right femoral vein. Acute deep vein thrombosis is noted in the right popliteal vein. Acute deep vein thrombosis is noted in the right tibio-peroneal trunk. Acute deep vein thrombosis is noted in the right posterior tibial vein. Acute deep vein thrombosis is noted in the right peroneal vein. Acute deep vein thrombosis is noted in the right gastrocnemius vein. Acute deep vein thrombosis is noted in the left common femoral vein. Acute deep vein thrombosis in noted in the left femoral vein. The remainder of the left lower extremity deep venous system is patent and compressible. The great saphenous veins appear bilaterally patent and compressible segmentally. Ordering Physician: Ted Toro Referring Physician: Amos Floyd M.D. Performed By: Cierra Torres RVT 08/09/241938 Date Scotty Barone MD CC: Dr. Nixon Silverio DO; Dr. aJiro Mitchell DO; Dr. Ted Toro MD; Dr. 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 Jairo Mitchell DO Status: DIS IN Ordering Dr: Obinna Frye MD Date: 08/07/24 Location: [facility] Sex: F C Admitted: 08/07/24 Test Reason : low hr Blood Pressure : */* mmHG Vent. Rate : 116 BPM Atrial Rate : 116 BPM P-R Int : 130 ms QRS Dur : 80 ms QT Int : 314 ms P-R-T Axes : 39 -10 104 degrees QTcB Int : 436 ms Sinus tachycardia Biatrial enlargement Left ventricular hypertrophy with repolarization abnormality ( R in aVL ) Abnormal ECG No previous ECGs available Confirmed by ESTUARDO ZELAYA, JORDAN ([id number]), commissioning editor BRANDIN MCCABE ([id number]) on 08/13/2024 2:03:41 PM Referred By: Nixon Silverio Confirmed By: JORDAN MARTE MD 08/13/24 1403 Date Jordan Marte MD CC: Dr. Nixon Silverio DO; Dr. Jairo Mitchell DO; Dr. Obinna Frye MD; Dr. Amos Floyd MD Signed Normal [facility] Abdomen/Pelvis without Conto n 08-07-2024 Abdomen/Pelvis without Cont [facility] Imaging Services [address] [place] [id number] Abdomen/Pelvis without Cont MR#: [id number] Acct: [id number] Name: LINDA PERALTA Rep #: [id number] : 1945 F 79 From: Omar Carrillo MD PCP: Dr. Amos Floyd MD Status: ADM IN Study: Abdomen/Pelvis without Cont Date of Exam: 07/21 10/14 Exam# [id number] Ordering Dr: Nixon Silverio DO PROCEDURE: ABDOMEN/PELVIS WITHOUT CONT 08/07/2024 REASON FOR EXAM: UTI WITH SEPSIS. EVALUATE FOR PYELO. TECHNIQUE: ABDOMEN/PELVIS WITHOUT CONT Noncontrast technique limits evaluation of the abdominal and pelvic viscera. Coronal and Sagittal reconstruction series were provided. One or more dose reduction techniques were used (e.g., Automated exposure control, adjustment of the mA and/or kV according to patient size, use of iterative reconstruction technique). ORAL CONTRAST TYPE: None. AMOUNT: mL COMPARISON: 12/07/2023. FINDINGS: Lung bases are clear. The peripheral soft tissues are unremarkable. Degenerative changes of the spine. Moderate atherosclerosis. Normal caliber abdominal aorta. IVC filter within the caval lumen. The liver is unremarkable. Absent gallbladder. The pancreas is unremarkable. Splenic calcification which may represent prior granulomatous infection. The adrenals unremarkable. Right kidney simple cysts. No right hydroureteronephrosis. Surgically absent left kidney. Urinary bladder is collapsed around a Jarrell catheter. Possible urinary bladder wall thickening. Colonic diverticulosis. No surrounding inflammatory changes. Dense colonic stool. Normal caliber large and small bowel. CT/Abdomen/Pelvis without Cont IMPRESSION: Possible urinary bladder wall thickening which is poorly visualized due to decompression around a Jarrell catheter. Correlate with urinalysis to exclude cystitis. Right kidney simple cyst. Otherwise, normal appearance of the right kidney. Surgically absent left kidney. Infrarenal IVC filter. If not actively managed by Interventional Radiology, consider a consult for management. Colonic diverticulosis. Reading Location: [id number] CC: Dr. Nixon Silverio DO; Dr. 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 Normal [facility] Absolute lymphocyte countOrd ered By: Obinna Frye on 08-07-2024 Lymphocytes Auto (Unsp spec) [#/Vol] 2.26 10*3/uL 0.83-4.51 [facility] Absolute neutrophil countOrd ered By: Obinna Frye on 08-07-2024 Neutrophils (Bld) [#/Vol] 10.8 10*3/uL High 2.0-7.7 [facility] Anion gap in Serum or Plasma Ordered By: Obinna Frye on 08-07-2024 Anion gap [Moles/Vol] 15 mmol/L 5-15 [facility] Automated lymphocyte count a s percentage of total leukocytesOrdered By: Obinna Frye on 08-07-2024 Lymphocytes/100 WBC Auto (Unsp spec) 15.0 % Low 19-41 [facility] BUN/creatinine ratioOrdered By: Obinna Frye on 08-07-2024 Urea nitrogen/Creatinine [Mass ratio] 27.3 mg/mg High 10-20 [facility] Basophil percentageOrdered B y: Obinna Frye on 08-07-2024 Basophils/100 WBC (Bld) 0.9 % 0-1 [facility] Bilirubin Test strip Ql (U)O rdered By: Obinna Frye on 08-07-2024 Bilirubin Ql (U) Negative Negative [facility] Bilirubin, totalOrdered By: Obinna Frye on 08-07-2024 Bilirubin [Mass/Vol] 0.52 mg/dL 0.00-1.30 [facility] Blood cultureOrdered By: Obinna Frye on 08-07-2024 Bacteria identified Cx Nom (Bld) No growth in 5 days. [facility] Bacteria identified Cx Nom (Bld) No growth in 5 days. [facility] CBC W/Diff, Automatedon 07-21 Absolute Lymph 2.26 X10 3/uL Normal 0.83-4.51 [facility] Comment on above: Performed By: #### L 500.2500 #### [facility] Laboratory [address] [place], [address] Absolute Neut 10.8 X10 3/uL High 2.0-7.7 [facility] Comment on above: Performed By: #### L 500.2500 #### [facility] [address] [place], [address] Basophils/100 WBC (Bld) 0.9 % Normal 0-1 [facility] Comment on above: Performed By: #### L 500.2500 #### [facility] [address] [place], [address] Eosinophils/100 WBC (Bld) 1.1 % Normal 0-5 [facility] Comment on above: Performed By: #### L 500.2500 #### [facility] [address] [place], [address] Erythrocyte distribution width (RBC) [Ratio] 15.6 % High 11.6-14.6 [facility] Comment on above: Performed By: #### L 500.2500 #### [facility] Laboratory [address] [place], [address] Hematocrit (Bld) [Volume fraction] 46.5 % Normal 37-47 [facility] Comment on above: Performed By: #### L 500.2500 #### [facility] Laboratory [address] [place], [address] Hemoglobin (Bld) [Mass/Vol] 15.2 g/dL High 12.0-15.0 [facility] Comment on above: Performed By: #### L 500.2500 #### [facility] [address] [place], [address] IG% 1.600 High 0.0-0.9 [facility] Comment on above: Result Comment: IG% - Immature Granulocytes (promyelocytes, myelocytes and metamyelocytes) > 1% indicates that a LEFT SHIFT is Present. Performed By: #### L 500.2500 #### [facility] Laboratory [facility] [place], [address] Lymphocytes/100 WBC (Bld) 15.0 % Low 19-41 [facility] Comment on above: Performed By: #### L 500.2500 #### [facility] Laboratory [facility] [place], [address] MCH (RBC) [Entitic mass] 29.7 pg Normal 27.0-32.0 [facility] Comment on above: Performed By: #### L 500.2500 #### [facility] Laboratory [address] [place], [address] MCHC (RBC) [Mass/Vol] 32.7 g/dL Normal 32-36 [facility] Comment on above: Performed By: #### L 500.2500 #### [facility] Laboratory [address] [place], [address] MCV (RBC) [Entitic vol] 91.0 fL Normal 81-99 [facility] Comment on above: Performed By: #### L 500.2500 #### [facility] Laboratory [address] [place], [address] Monocytes/100 WBC (Bld) 9.7 % Normal 0-10 [facility] Comment on above: Performed By: #### L 500.2500 #### [facility] Laboratory [address] [place], [address] Neutrophils/100 WBC (Bld) 71.7 % High 47-70 [facility] Comment on above: Performed By: #### L 500.2500 #### [facility] [address] [place], [address] Nucleated RBC (Bld) [#/Vol] 0 10*3/uL Normal 0-5 [facility] Comment on above: Performed By: #### L 500.2500 #### [facility] Laboratory [address] [place], [address] Platelet mean volume (Bld) [Entitic vol] 11.9 fL Normal 6.2-12.0 [facility] Comment on above: Performed By: #### L 500.2500 #### [facility] [address] [place], [address] Platelets (Bld) [#/Vol] 193 10*3/uL Normal 150-450 [facility] Comment on above: Performed By: #### L 500.2500 #### [facility] Laboratory [address] [place], [address] RBC (Bld) [#/Vol] 5.11 10*6/uL Normal 4.2-5.4 [facility] Comment on above: Performed By: #### L 500.2500 #### [facility] Laboratory [address] [place], [address] RDW SD 52.4 fl High 35.1-43.9 [facility] Comment on above: Performed By: #### L 500.2500 #### [facility] Laboratory [address] [place], [address] WBC (Bld) [#/Vol] 15.1 10*3/uL High 4.4-11.0 [facility] Comment on above: Performed By: #### L 500.2500 #### [facility] Laboratory [address] [place], [address] Carbon dioxide, total [Moles /volume] in Central venous bloodOrdered By: Obinna Frye on 08-07-2024 CO2 [Moles/Vol] 14.6 mmol/L Low 21.0-32.0 [facility] Chloride assayOrdered By: Ug o Frye on 08-07-2024 Chloride [Moles/Vol] 107 mmol/L 98-108 [facility] Comprehensive Metabolic Prof ilon 08-07-2024 Albumin [Mass/Vol] 4.1 g/dL Normal 3.4-4.8 [facility] Comment on above: Performed By: #### L 500.2500 #### [facility] Laboratory [address] [place], [address] Albumin/Globulin [Mass ratio] 1.8 {ratio} Normal 0.9-2.4 [facility] Comment on above: Performed By: #### L 500.2500 #### [facility] Laboratory [address] [place], [address] ALK PHOS 102 U/L Normal 35-104 [facility] Comment on above: Performed By: #### L 500.2500 #### [facility] [address] [place], [address] ALT [Catalytic activity/Vol] 20 U/L Normal <=34 [facility] Comment on above: Performed By: #### L 500.2500 #### [facility] Laboratory [address] [place], [address] AST [Catalytic activity/Vol] 27 U/L Normal <=31 [facility] Comment on above: Result Comment: Hemo lysis present, Results??could be affected. ?? Performed By: #### L 500.2500 #### [facility] Laboratory [address] [place], [address] Bilirubin [Mass/Vol] 0.52 mg/dL Normal 0.00-1.30 [facility] Comment on above: Performed By: #### L 500.2500 #### [facility] Laboratory [address] [place], [address] BUN/CRE 27.3 RATIO High 10-20 [facility] Comment on above: Performed By: #### L 500.2500 #### [facility] Laboratory [address] [place], [address] Calcium [Mass/Vol] 9.9 mg/dL Normal 7.6-11.0 [facility] Comment on above: Performed By: #### L 500.2500 #### [facility] [address] [place], [address] Chloride [Moles/Vol] 107 mmol/L Normal 98-108 [facility] Comment on above: Performed By: #### L 500.2500 #### [facility] Laboratory [address] [place], [address] CO2 [Moles/Vol] 14.6 mmol/L Low 21.0-32.0 [facility] Comment on above: Performed By: #### L 500.2500 #### [facility] Laboratory [address] [place], [address] Creatinine [Mass/Vol] 1.59 mg/dL High 0.70-1.20 [facility] Comment on above: Performed By: #### L 500.2500 #### [facility] [address] [place], [address] ECRCL 25.08 ml/min Low 50-250 [facility] Comment on above: Performed By: #### L 500.2500 #### [facility] Laboratory [address] [place], [address] GAP 15 Normal 5-15 [facility] Comment on above: Performed By: #### L 500.2500 #### [facility] Laboratory [address] [place], [address] GFR/1.73 sq M.predicted among non-blacks MDRD (S/P/Bld) [Vol rate/Area] 32 mL/min/{1.73_m2} Low >60 [facility] Comment on above: Result Comment: mL/m in/1.73m2 CKD-EPI Creatinine Equation (2020) Performed By: #### L 500.2500 #### [facility] Laboratory [address] [place], [address] Globulin (S) [Mass/Vol] 2.2 g/dL Normal 2.2-4.2 [facility] Comment on above: Performed By: #### L 500.2500 #### [facility] Laboratory [address] [place], [address] Glucose [Mass/Vol] 139 mg/dL High 70-99 [facility] Comment on above: Performed By: #### L 500.2500 #### [facility] Laboratory [address] [place], [address] Potassium [Moles/Vol] 4.5 mmol/L Normal 3.3-5.1 [facility] Comment on above: Result Comment: Hemo lysis present, Results??could be affected. ?? Performed By: #### L 500.2500 #### [facility] [address] [place], [address] Sodium [Moles/Vol] 137 mmol/L Normal 133-145 [facility] Comment on above: Performed By: #### L 500.2500 #### [facility] Laboratory [address] [place], [address] T PROT 6.3 g/dL Normal 5.9-8.4 [place] [facility] Comment on above: Performed By: #### L 500.2500 #### [facility] Laboratory [address] [place], [address] Urea nitrogen [Mass/Vol] 43 mg/dL High 06-08 [facility] Comment on above: Performed By: #### L 500.2500 #### [facility] Laboratory [address] [place], [address] Emergency Department Summary on 08-07-2024 Emergency Department Summary [facility] Medical Records Department [address] [place] [address] Emergency Department Summary 08/07/24 MR#: [id number] Acct: [id number] Name: LINDA PERALTA Rep #: [id number] : 1945 79 From: Obinna Frye MD PCP: Dr. Amos Floyd MD Status:REG ER Location: ED HPI History of Present [...] artery revealed mild luminal irregularities. Right coronary revealed mild luminal irregularities. Valve findings revealed moderate to severe AAS and mitral valve insufficiency grade 2. Patient states she was sent in because of low heart rate. Vital signs in triage revealed a heart rate of 29. Patient's blood pressure when she was brought back to examination room was very low. 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 Orthostatic hypotension 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, stage 3 Plumas disease Essential (primary) hypertension Hyperlipidemia Recurrent deep vein thrombosis (DVT) History of non-ST elevation myocardial infarction (NSTEMI) (04/2009) Pyelonephritis Cystocele with rectocele History of DVT (deep vein thrombosis) Hypotension Home Medications ???Medication ???Instructions ???Recorded ???Last Taken ???Type acetaminophen 500 mg tablet 1,000 mg (2 x 500 mg) PO Q6H PRN 0 04/08/20 04/07/20 21:32 Rx Pain Score 1-10 denosumab 60 mg/mL subcutaneous 60 mg subcut [id number] #1 mL Unknown Rx syringe (Prolia) hydrocortisone 10 mg tablet 20 mg (2 x 10 mg) PO DAILY@0600 08/05/24 Rx #90 tabs nitroglycerin 0.4 mg sublingual 0.4 mg sublingual Q5-15M PRN 07/25 Unknown Rx tablet Cardiac/Chest Pain #25 tabs warfarin 2.5 mg tablet 2.5 mg PO DAILY@1700 #120 tabs 05/1407/31/24 Rx methenamine hippurate 1 gram tablet 1 g PO QHS 04/29/24 Unknown His tory lisinopril 5 mg tablet 5 mg PO QDAY #90 tabs 07/23/24 Rx simvastatin 20 mg tablet 20 mg PO QHS #90 tabs 07/23/24 Unk nown Rx ascorbic acid (vitamin C) 1,000 mg 1,000 mg PO QHS 08/07/24 Unknown History tablet Allergy/AdvReac Type Severity Reaction Status Date / Time ciprofloxacin (From Cipro) Allergy Rash Verified 08/07/24 15:53 Penicillins Allergy Rash Verified 08/07/24 15:53 Family History Father CVA (cerebral vascular accident) Mother Myocardial infarction, Onset Age: 87 Other History of DVT (deep vein thrombosis) 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 Normal [facility] Eosinophil percentageOrdered By: Obinnamorales Frye on 08-07-2024 Eosinophils/100 WBC (Bld) 1.1 % 0-5 [facility] Erythrocyte distribution wid th ratioOrdered By: Obinnamorales Frye on 08-07-2024 Erythrocyte distribution width (RBC) [Ratio] 15.6 % High 11.6-14.6 [facility] Erythrocyte distribution wid th standard deviationOrdered By: [facility] on 08-07-2024 Erythrocyte distribution width (RBC) [Ratio] 52.4 fl High 35.1-43.9 [facility] Ferritinon 08-07-2024 Ferritin [Mass/Vol] 107 ng/mL Normal 22-378 [facility] Comment on above: Performed By: #### L 500.5686 #### [facility] Laboratory [address] [place], [place], [address] Glomerular filtration rate ( GFR) estimation/1.73 sq m using serum, plasma, or whole bOrdered By: Obinna Frye on 08-07-2024 GFR/1.73 sq M.predicted among non-blacks MDRD (S/P/Bld) [Vol rate/Area] 32 mL/min/{1.73_m2} Low >60 [facility] Comment on above: mL/min/1.73m2 CKD-EP I Creatinine Equation (2020) H AND P Exam - [facility] 08-07-2024 H&P Exam - Hospitalist [facility] Medical Records Department [address] [place] [address] H P Exam - Hospitalist 08/07/241930 MR#: [id number] Acct: [id number] Name: LINDA PERALTA Rep #: [id number] : 1945 79 From: Nixon Silverio DO PCP: Dr. Amos Floyd MD Status:ADM IN Location: ICU [id number] HPI - General General Date of Admission: 08/07/24 Date of Service: 08/07/24 Chief Complaint: Hypotension and Bradycardia. 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 Marte on August 05, 2024 with LVEF 60% and mild luminal irregularities with [id number] plus grade II mitral valve insufficiency who presents to [facility] ER complaining of hypotension and bradycardia. Ms. Peralta reports her symptoms began a few hours prior to arrival when she spontaneously developed severe bradycardia in the 29 bpm range. She also admits to associated fatigue and malaise along with dark-colored stool with orthostatic lightheadedness plus increased urinary frequency and pressure sensation in the suprapubic region. She states she has been off of her warfarin for 5 days in preparation for her recent [facility] with patient recently just having 1 dose yesterday. She denies dysuria, hematuria or similar previous episodes. She also denies related fever, chills, vomiting, diarrhea, constipation, chest pain, palpitations, heart racing, headache or rash. In the ER she was noted to have a UA; positive for evidence of Acute Cystitis; without hematuria with a corresponding Leukocytosis of 15.1K with Left-shift of 1.6% present on admission concerning for Sepsis complicated by elevated BUN/creatinine ratio of 27.3 present on admission suggestive of Dehydration compounded by mildly elevated Troponin T of 60 ng/L present on admission likely due to Acute Cardiac Strain from Severe Bradycardia with Orthostatic Lightheadedness with dark stools on warfarin worrisome for possible GI bleed and she was then admitted to the ICU for ongoing care for a stay that is expected to extend beyond 2 midnights. [facility] Medical History MVP (mitral valve prolapse) Aortic stenosis Hypokalemia Elevated serum creatinine Acute prerenal azotemia History of kidney cancer 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 Hypercalcemia Frequent falls Closed head injury (03/20/20) Hypoglycemia (03/20/20) Acute electrocardiogram changes Atopic dermatitis Osteopenia determined by x-ray History of pulmonary embolism shelter (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 Orthostatic hypotension 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, stage 3 Plumas disease Essential (primary) hypertension Hyperlipidemia Recurrent deep vein thrombosis (DVT) History of non-ST elevation myocardial infarction (NSTEMI) (04/2009) Pyelonephritis Cystocele with rectocele History of DVT (deep vein thrombosis) Hypotension Home Medications ???Medication ???Instructions ???Recorded ???Last Taken ???Type acetaminophen 500 mg tablet 1,000 mg (2 x 500 mg) PO Q6H PRN 0 04/08/20 04/07/20 21:32 Rx Pain Score 1-10 denosumab 60 mg/mL subcutaneous 60 mg subcut [id number] #1 mL Unknown Rx syringe (Prolia) hydrocortisone 10 mg tablet 20 mg (2 x 10 mg) PO DAILY@0600 08/05/24 Rx #90 tabs nitroglycerin 0.4 mg sublingual 0.4 mg sublingual Q5-15M PRN 07/25 Unknown Rx tablet Cardiac/Chest Pain #25 tabs warfarin 2.5 mg tablet 2.5 mg PO DAILY@1700 #120 tabs 05/1407/31/24 Rx methenamine hippurate 1 gram tablet 1 g PO QHS 04/29/24 Unknown His tory lisinopril 5 mg tablet 5 mg PO QDAY #90 tabs 07/23/24 Rx simvastatin 20 mg tablet 20 mg PO QHS #90 tabs 07/23/24 Unk nown Rx ascorbic acid (vitamin C) 1,000 mg 1,000 mg PO QHS 08/07/24 Unknown History tablet Allergy/AdvReac Type Severity Reaction Status Date / Time ciprofloxacin (From Cipro) Allergy Rash Verified 08/07/24 15:53 Penicillins Allergy Rash Verified 08/07/24 15:53 Family History Father CVA (cerebral vascular accident) Mother Myocardial infar (more content not included)... Normal [facility] Hematocrit Auto (Bld) [Volum e fraction]Ordered By: Obinna Frye on 08-07-2024 Hematocrit (Bld) [Volume fraction] 46.5 % 37-47 [facility] Hemoglobin measurementOrdere d By: Obinna Frye on 08-07-2024 Hemoglobin (Bld) [Mass/Vol] 15.2 g/dL High 12.0-15.0 [facility] Immature granulocytes/100 WB C Auto (Bld)Ordered By: Obinna Frye on 08-07-2024 Immature granulocytes/100 WBC (Bld) 1.600 % High 0.0-0.9 [facility] Comment on above: IG% - Immature Granu locytes (promyelocytes, myelocytes and metamyelocytes) > 1% indicates that a LEFT SHIFT is Present. International normalized rat io (INR) calculationOrdered By: Nixon Brizuela on 08-07-2024 INR Coag (Bld) [Relative time] 1.1 {INR} [facility] Iron measurement (mass/mass) Ordered By: Nixon Brizuela on 08-07-2024 Iron (Unsp spec) [Mass/Mass] 55 ug/dL 50-170 [facility] Iron+Iron Binding Capacityon 08-07-2024 Iron [Mass/Vol] 55 ug/dL Normal 50-170 [facility] Comment on above: Performed By: #### L 500.2500 #### [facility] Laboratory [address] [place], [address] IRON SATURATION 19.0 Normal 13-59 [facility] Comment on above: Performed By: #### L 500.2500 #### [facility] Laboratory [address] [place], [address] TIBC 295 ug/dL Normal 250-450 [facility] Comment on above: Performed By: #### L 500.2500 #### [facility] Laboratory [address] [place], [address] UIBC 240 ug/dL Normal 228-428 [facility] Comment on above: Result Comment: Hemo lysis present, Results??could be affected. ?? Performed By: #### L 500.2500 #### [facility] Laboratory [address] [place], [address] Ketones Test strip Ql (U)Ord ered By: Obinna Frye on 08-07-2024 Ketones Ql (U) Negative Negative [facility] L499.0042on 08-07-2024 Trop T High Sen 55 ng/L Invalid Interpretation Code <=14 [facility] Comment on above: Result Comment: Crit ical Result(s) Called at: 1847 by: TOY DE LA TORRE??Results read back by same. Performed By: #### L 499.0042 ####[facility] [address] [place], [address] L499.0043on 08-07-2024 Trop T High Sen 52 ng/L High <=14 [facility] Comment on above: Result Comment: Crit ical Result(s) Called at: 2157 by:??TOY HECKNER Results read back by same. Performed By: #### L 499.0043 #### [facility] Laboratory [address] [place], [address] L501.4021on 08-07-2024 Trop T High Sen 60 ng/L Invalid Interpretation Code <=14 [facility] Comment on above: Result Comment: Crit ical Result(s) Called at: 1736 by: TOY BUNCH TO JOHN IBARRA??Results read back by same. Performed By: #### L 501.4021, M200.1000 ####[facility] [address] [place], [place], [address] L509.6002on 08-07-2024 CORTISOL 12.00 ug/dL High 2.68-10.50 [facility] Comment on above: Performed By: #### L 500.2500 #### [facility] Laboratory [address] [place], [place], [address] Laboratory - Chemistry and C hemistry - challengeOrdered By: Obinna Frye on 08-07-2024 AST [Catalytic activity/Vol] 27 U/L <32 [facility] Comment on above: Hemolysis present, R esults could be affected. Lactic Acidon 08-07-2024 Lactate [Moles/Vol] mmol/L Normal 0.0-2.0 [facility] Comment on above: Order Comment: Comme nts: if result >2, system reflex orders 2nd test @ 4hrsY Performed By: #### L 500.2500 #### [facility] Laboratory [address] [place], [place], [address] Lactic acid measurementOrder ed By: Nixon Brizuela on 08-07-2024 Lactate [Moles/Vol] mmol/L 0.0-2.0 [facility] MCV (mean corpuscular volume ) determinationOrdered By: Obinna Frye on 08-07-2024 MCV (RBC) [Entitic vol] 91.0 fL 81-99 [facility] Mean corpuscular hemoglobin (MCH) determinationOrdered By: Obinna Frye on 08-07-2024 MCH (RBC) [Entitic mass] 29.7 pg 27.0-32.0 [facility] Mean corpuscular hemoglobin concentration (MCHC) determinationOrdered By: Obinna Frye on 08-07-2024 MCHC (RBC) [Mass/Vol] 32.7 g/dL 32-36 [facility] Mean platelet volume determi nationOrdered By: Obinna Frye on 08-07-2024 Platelet mean volume (Bld) [Entitic vol] 11.9 fL 6.2-12.0 [facility] Microscopic analysis of urin e for red blood cells (RBC)Ordered By: Obinna Frye on 08-07-2024 Microscopic analysis of urine for red blood cells (RBC) 0-5 SEEN /hpf 0-5 [facility] Monocyte percentageOrdered B y: Obinna Frye on 08-07-2024 Monocytes/100 WBC (Bld) 9.7 % 0-10 [facility] Mucus LM Ql (Urine sed)Order ed By: Obinna Frye on 08-07-2024 Mucus Ql (Urine sed) 0 SEEN /hpf [facility] Neutrophil percentageOrdered By: Obinna Frye on 08-07-2024 Neutrophils/100 WBC (Bld) 71.7 % High 47-70 [facility] Nitrite Test strip Ql (U)Ord ered By: Obinna Frye on 08-07-2024 Nitrite Ql (U) Positive High Negative [facility] No Panel InformationOrdered By: Nixon Brizuela on 08-07-2024 Unsaturated Iron Binding Capacity 240 ug/dL 228-428 [facility] Comment on above: Hemolysis present, R esults could be affected. Nucleated red blood cell per centageOrdered By: Obinna Frye on 08-07-2024 Nucleated RBC/100 WBC (Bld) [Ratio] 0 % 0-5 [facility] Platelet countOrdered By: Shashank Frey on 08-07-2024 Platelets (Bld) [#/Vol] 193 10*3/uL 150-450 [facility] Potassium measurement (mass/ volume)Ordered By: Obinna Frye on 08-07-2024 Potassium (Unsp spec) [Mass/Vol] 4.5 mmol/L 3.3-5.1 [facility] Comment on above: Hemolysis present, R esults could be affected. Protein Test strip Ql (U)Ord ered By: Obinna Frye on 08-07-2024 Protein Ql (U) 30 mg/dl High Negative [facility] Prothrombin Time w/INRon INR Coag (PPP) [Relative time] 1.1 {INR} Normal [facility] Comment on above: Performed By: #### L 500.2500 #### [facility] [address] [place], [place], [id number] PT Coag (PPP) [Time] 14.9 s Normal 11.7-14.9 [facility] Comment on above: Performed By: #### L 500.2500 #### [facility] [address] [place], [place], [id number] Prothrombin timeOrdered By: Nixon Brizuela on 08-07-2024 PT Coag (PPP) [Time] 14.9 s 11.7-14.9 [facility] RBC Auto (Bld) [#/Vol]Ordere d By: Obinna Frye on 08-07-2024 RBC (Bld) [#/Vol] 5.11 10*6/uL 4.2-5.4 [facility] Serum creatinine measurement (mass/volume)Ordered By: Obinna Frye on 08-07-2024 Creatinine [Mass/Vol] 1.59 mg/dL High 0.70-1.20 [facility] Serum globulin measurementOr dered By: Obinna Frye on 08-07-2024 Globulin (S) [Mass/Vol] 2.2 g/dL 2.2-4.2 [facility] Serum glucose measurement (m ass/volume)Ordered By: Obinna Frye on 08-07-2024 Glucose [Mass/Vol] 139 mg/dL High 70-99 [facility] Serum or plasma alanine evans otransferase (ALT) measurementOrdered By: Obinna Frye on 08-07-2024 ALT [Catalytic activity/Vol] 20 U/L <35 [facility] Serum or plasma albumin scott urement (mass/volume)Ordered By: Obinna Frye on 08-07-2024 Albumin [Mass/Vol] 4.1 g/dL 3.4-4.8 [facility] Serum or plasma albumin/glob ulin mass ratioOrdered By: Obinnamorales Frye on 08-07-2024 Albumin/Globulin [Mass ratio] 1.8 {ratio} 0.9-2.4 [facility] Serum or plasma alkaline bárbara sphatase measurementOrdered By: Obinnamorales Frye on 08-07-2024 ALP [Catalytic activity/Vol] 102 U/L 35-104 [facility] Serum or plasma calcium scott urement (mass/volume)Ordered By: Obinnamorales Frye on 08-07-2024 Calcium [Mass/Vol] 9.9 mg/dL 7.6-11.0 [facility] Serum or plasma cortisol marely surement (mass/volume)Ordered By: Nixon Brizuela on 08-07-2024 Cortisol [Mass/Vol] 12.00 ug/dL High 2.68-10.50 [facility] Serum or plasma ferritin marely surement (mass/volume)Ordered By: Nixon Brizuela on 08-07-2024 Ferritin [Mass/Vol] 107 ng/mL 22-378 [facility] Serum or plasma iron saturat ion measurement (mass fraction)Ordered By: Nixon Brizuela on 08-07-2024 Iron saturation [Mass fraction] 19.0 % 13-59 [facility] Serum or plasma urea nitroge n measurement (mass/volume)Ordered By: Obinna Frye on 08-07-2024 Urea nitrogen [Mass/Vol] 43 mg/dL High 4-19 [facility] Sodium levelOrdered By: Obinna Frye on 08-07-2024 Sodium [Moles/Vol] 137 mmol/L 133-145 [facility] Squamous epithelial cells de tection in urine sediment by light microscopyOrdered By: Obinna Frye on 08-07-2024 Epithelial cells.squamous LM Ql (Urine sed) 0 SEEN /hpf 5-10 [facility] TSH DL <= 0.005 mIU/L QnOrde red By: Nixon Brizuela on 08-07-2024 TSH Qn 1.030 uIU/mL 0.300-4.200 [facility] Thyroid Stim Hormone (TSH)on 08-07-2024 TSH 1.030 uIU/mL Normal 0.300-4.200 [facility] Comment on above: Performed By: #### L 500.2500 #### [facility] [address] [place], [address] Total proteinOrdered By: Obinna Frye on 08-07-2024 Protein [Mass/Vol] 6.3 g/dL 5.9-8.4 [facility] Troponin T.cardiac [Mass/vol ume] in Serum or Plasma by High sensitivity methodOrdered By: Obinna Frye on 08-07-2024 Troponin T.cardiac High sensitivity method [Mass/Vol] 52 ng/L High <14 [facility] Comment on above: Critical Result(s) C alled at: 2158 by: TOY BUNCH TO ABENA JASSO Results read back by same. Troponin T.cardiac High sensitivity method [Mass/Vol] 55 ng/L Critically high <14 [facility] Comment on above: Critical Result(s) C alled at: 1847 by: TOY BUNCH TO NAKIA DE LA TORRE Results read back by same. Troponin T.cardiac High sensitivity method [Mass/Vol] 60 ng/L Critically high <14 [facility] Comment on above: Critical Result(s) C alled at: 1736 by: TOY BUNCH TO JOHN IBARRA Results read back by same. Type AND Screenon 08-07-2024 Ab SCREEN GEL Negative Normal [facility] Comment on above: Order Comment: Has p t arrived? YHGI Performed By: #### B TS ####[facility] [address] [place], [place], [id number] Urinalysis, Completeon 08-07 BACTERIA 3+ /hpf Normal None Seen [facility] Comment on above: Order Comment: CLEAN CATCH Performed By: #### L 400.0001, M100.2200 #### [facility] [address] [place], [place], [id number] RBC 0-5 SEEN Normal 0-5 [facility] Comment on above: Order Comment: CLEAN CATCH Performed By: #### L 400.0001, M100.2200 #### [facility] [address] [place], [address] WBC 5-10 SEEN Normal 0-5 [facility] Comment on above: Order Comment: CLEAN CATCH Performed By: #### L 400.0001, M100.2200 #### [facility] [address] [place], [address] EPI,SQUAMOUS 0 SEEN Normal 5-10 [facility] Comment on above: Order Comment: CLEAN CATCH Performed By: #### L 400.0001, M100.2200 #### [facility] [address] [place], [address] Mucus Ql (Urine sed) 0 SEEN Normal [facility] Comment on above: Order Comment: CLEAN CATCH Performed By: #### L 400.0001, M100.0 #### [facility] [address] [place], [address] Urine clarityOrdered By: Obinna Frye on 08-07-2024 Clarity (U) Clear Clear [facility] Urine color determinationOrd ered By: Obinna Frye on 08-07-2024 Color (U) Yellow Yellow [facility] Urine cultureOrdered By: Obinna Frye on 08-07-2024 Bacteria identified Cx Nom (U) Klebsiella aerogenes Abnormal [facility] Urine glucose detectionOrder ed By: Obinna Frye on 08-07-2024 Glucose Ql (U) Normal mg/dl Normal [facility] Urine leukocyte esterase det ection by dipstickOrdered By: Obinna Frye on 08-07-2024 Leukocyte esterase Test strip Ql (U) 25 /ul High Negative [facility] Urine pHOrdered By: Obinna nielsen on 08-07-2024 pH (U) 6.0 [pH] 5.0 - 8.0 [facility] Urine sediment bacteria coun t by microscopy (number/high power field)Ordered By: Obinna Frye on 08-07-2024 Bacteria LM.HPF (Urine sed) [#/Area] 3 /[HPF] None Seen [facility] Urine specific gravity measu rementOrdered By: Obinnamorales Frye on 08-07-2024 Specific gravity (U) [Rel density] 1.015 1.002-1.030 [facility] Urine urobilinogen measureme ntOrdered By: Obinna Frye on 08-07-2024 Urobilinogen Ql (U) Normal mg/dl Normal [facility] White blood cell (WBC) count Ordered By: Obinna Frye on 08-07-2024 WBC (Bld) [#/Vol] 15.1 10*3/uL High 4.4-11.0 [facility] White blood cell countOrdere d By: Obinna Frye on 08-07-2024 White blood cell count 5-10 SEEN /hpf 0-5 [facility] Anion gap in Serum or Plasma Ordered By: Jordan Estuardo on 08-05-2024 Anion gap [Moles/Vol] 12 mmol/L 5-15 [facility] BUN/creatinine ratioOrdered By: Bentley Estuardo on 08-05-2024 Urea nitrogen/Creatinine [Mass ratio] 23.7 mg/mg High 10-20 [facility] Basic Metabolic Profile (BMP )on 08-05-2024 BUN/CRE 23.7 RATIO High 10-20 [facility] Comment on above: Performed By: #### L 500.2500, L100.0100 #### [facility] [address] [place], [address] Calcium [Mass/Vol] 9.8 mg/dL Normal 7.6-11.0 [facility] Comment on above: Performed By: #### L 500.2500, L100.0100 #### [facility] [address] [place], [address] Chloride [Moles/Vol] 111 mmol/L High 98-108 [facility] Comment on above: Performed By: #### L 500.2500, L100.0100 #### [facility] [address] [place], [address] CO2 [Moles/Vol] 17.0 mmol/L Low 21.0-32.0 [facility] Comment on above: Performed By: #### L 500.2500, L100.0100 #### [facility] [address] [place], [address] Creatinine [Mass/Vol] 1.55 mg/dL High 0.70-1.20 [facility] Comment on above: Performed By: #### L 500.2500, L100.0100 #### [facility] [address] [place], [address] ECRCL 25.41 ml/min Low 50-250 [facility] Comment on above: Performed By: #### L 500.2500, L100.0100 #### [facility] [address] [place], [address] GAP 12 Normal 5-15 [facility] Comment on above: Performed By: #### L 500.2500, L100.0100 #### [facility] [address] [place], [address] GFR/1.73 sq M.predicted among non-blacks MDRD (S/P/Bld) [Vol rate/Area] 33 mL/min/{1.73_m2} Low >60 [facility] Comment on above: Result Comment: mL/m in/1.73m2 CKD-EPI Creatinine Equation (2020) Performed By: #### L 500.2500, L100.0100 #### [facility] [address] [place], [address] Glucose [Mass/Vol] 96 mg/dL Normal 70-99 [facility] Comment on above: Performed By: #### L 500.2500, L100.0100 #### [facility] [address] [place], [address] Potassium [Moles/Vol] 4.5 mmol/L Normal 3.3-5.1 [facility] Comment on above: Result Comment: Hemo lysis present, Results??could be affected. ?? Performed By: #### L 500.2500, L100.0100 #### [facility] [address] [place], [address] Sodium [Moles/Vol] 140 mmol/L Normal 133-145 [facility] Comment on above: Performed By: #### L 500.2500, L100.0100 #### [facility] [address] [place], [address] Urea nitrogen [Mass/Vol] 37 mg/dL High 4-19 [facility] Comment on above: Performed By: #### L 500.2500, L100.0100 #### [facility] [address] [place], [address] Carbon dioxide, total [Moles /volume] in Central venous bloodOrdered By: Jordan Marte on 08-05-2024 CO2 [Moles/Vol] 17.0 mmol/L Low 21.0-32.0 [facility] Chloride assayOrdered By: Jorge L Marte on 08-05-2024 Chloride [Moles/Vol] 111 mmol/L High 98-108 [facility] Glomerular filtration rate ( GFR) estimation/1.73 sq m using serum, plasma, or whole bOrdered By: Jordan Marte on 08-05-2024 GFR/1.73 sq M.predicted among non-blacks MDRD (S/P/Bld) [Vol rate/Area] 33 mL/min/{1.73_m2} Low >60 [facility] Comment on above: mL/min/1.73m2 CKD-EP I Creatinine Equation (2020) International normalized rat io (INR) calculationOrdered By: Jordan Marte on 08-05-2024 INR Coag (Bld) [Relative time] 1.0 {INR} [facility] Potassium measurement (mass/ volume)Ordered By: Jordan Marte on 08-05-2024 Potassium (Unsp spec) [Mass/Vol] 4.5 mmol/L 3.3-5.1 [facility] Comment on above: Hemolysis present, R esults could be affected. Prothrombin Time w/INRon INR Coag (PPP) [Relative time] 1.0 {INR} Normal [facility] Comment on above: Performed By: #### L 500.2500, L100.0100 #### [facility] [address] [place], [address] PT Coag (PPP) [Time] 13.1 s Normal 11.7-14.9 [facility] Comment on above: Performed By: #### L 500.2500, L100.0100 #### [facility] [address] [place], [address] Prothrombin timeOrdered By: Jordan Marte on 08-05-2024 PT Coag (PPP) [Time] 13.1 s 11.7-14.9 [facility] Serum creatinine measurement (mass/volume)Ordered By: Jordan Marte on 08-05-2024 Creatinine [Mass/Vol] 1.55 mg/dL High 0.70-1.20 [facility] Serum glucose measurement (m ass/volume)Ordered By: Jordan Marte on 08-05-2024 Glucose [Mass/Vol] 96 mg/dL 70-99 [facility] Serum or plasma calcium scott urement (mass/volume)Ordered By: Jordan Marte on 08-05-2024 Calcium [Mass/Vol] 9.8 mg/dL 7.6-11.0 [facility] Serum or plasma urea nitroge n measurement (mass/volume)Ordered By: Jordan Marte on 08-05-2024 Urea nitrogen [Mass/Vol] 37 mg/dL High 4-19 [facility] Sodium levelOrdered By: Jarocho Marte on 08-05-2024 Sodium [Moles/Vol] 140 mmol/L 133-145 [facility] CNOVon 07-24-2024 CNOV Office Visit (INTMWS ) -------- LINDA PERALTA ([id number]) 1945 F Date Time Provider Department 07/24/24 11:00 AM AMOS FLOYD INTMWS During your visit today, we recorded the following information about you: Pulse Respiration Blood pressure Weight 80/minute 20/minute 126/82 65.8 kg Amos Floyd MD 07/24/2024 12:45 PM Signed This note was created using [employer]. Subjective Linda Peralta is a 79 year old female. Recording using [employer] software for draft documentation of the visit was discussed with the patient/authorized access services representative; all questions welcomed and answered. Patient/authorized access services representative agreed to proceed Heart Murmur: - [...] - Evelia (more content not included)... Normal [facility] Absolute lymphocyte countOrd ered By: Jordan Marte on 07-23-2024 Lymphocytes Auto (Unsp spec) [#/Vol] 1.15 10*3/uL 0.83-4.51 [facility] Absolute neutrophil countOrd ered By: Jordan Marte on 07-23-2024 Neutrophils (Bld) [#/Vol] 8.1 10*3/uL High 2.0-7.7 [facility] Activated partial thrombopla stin time (aPTT) in platelet poor plasma by coagulation aOrdered By: Jordan Marte on 07-23-2024 aPTT Coag (PPP) [Time] 33.9 s 24.1-36.2 [facility] Automated lymphocyte count a s percentage of total leukocytesOrdered By: Jordan Marte on 07-23-2024 Lymphocytes/100 WBC Auto (Unsp spec) 11.0 % Low 19-41 [facility] Basic Metabolic Profile (BMP )on 07-23-2024 BUN/CRE 28.1 RATIO High 10-20 [facility] Comment on above: Order Comment: Do al chris with PT/INR in 1 week Performed By: #### L 9200.0000 #### [facility] [address] [place], [place], [id number] Calcium [Mass/Vol] 10.4 mg/dL Normal 7.6-11.0 [facility] Comment on above: Order Comment: Do al chris with PT/INR in 1 week Performed By: #### L 9200.0000 #### [facility] [address] [place], [address] Chloride [Moles/Vol] 108 mmol/L Normal 98-108 [facility] Comment on above: Order Comment: Do al chris with PT/INR in 1 week Performed By: #### L 9200.0000 #### [facility] [address] [place], [address] CO2 [Moles/Vol] 21.6 mmol/L Normal 21.0-32.0 [facility] Comment on above: Order Comment: Do al chris with PT/INR in 1 week Performed By: #### L 9200.0000 #### [facility] [address] [place], [address] Creatinine [Mass/Vol] 1.60 mg/dL High 0.70-1.20 [facility] Comment on above: Order Comment: Do al chris with PT/INR in 1 week Performed By: #### L 9200.0000 #### [facility] [address] [place], [address] GAP 12 Normal 5-15 [facility] Comment on above: Order Comment: Do al chris with PT/INR in 1 week Performed By: #### L 9200.0000 #### [facility] [address] [place], [address] GFR/1.73 sq M.predicted among non-blacks MDRD (S/P/Bld) [Vol rate/Area] 32 mL/min/{1.73_m2} Low >60 [facility] Comment on above: Order Comment: Do al chris with PT/INR in 1 week Result Comment: mL/m in/1.73m2 CKD-EPI Creatinine Equation (2020) Performed By: #### L 9200.0000 #### [facility] [address] [place], [address] Glucose [Mass/Vol] 93 mg/dL Normal 70-99 [facility] Comment on above: Order Comment: Do al chris with PT/INR in 1 week Performed By: #### L 9200.0000 #### [facility] [address] [place], [address] Potassium [Moles/Vol] 5.1 mmol/L Normal 3.3-5.1 [facility] Comment on above: Order Comment: Do al chris with PT/INR in 1 week Result Comment: Hemo lysis present, Results??could be affected. ?? Performed By: #### L 9200.0000 #### [facility] [address] [place], [address] Sodium [Moles/Vol] 142 mmol/L Normal 133-145 [facility] Comment on above: Order Comment: Do al chris with PT/INR in 1 week Performed By: #### L 9200.0000 #### [facility] [address] [place], [address] Urea nitrogen [Mass/Vol] 45 mg/dL High 4-19 [facility] Comment on above: Order Comment: Do al chris with PT/INR in 1 week Performed By: #### L 9200.0000 #### [facility] [address] [place], [address] Basophil percentageOrdered B y: Bentley Estuardo on 07-23-2024 Basophils/100 WBC (Bld) 0.4 % 0-1 [facility] CBC W/Diff, Automatedon Absolute Lymph 1.15 X10 3/uL Normal 0.83-4.51 [facility] Comment on above: Performed By: #### L 100.0100, L300.3900, L500.2500, L300.4310 ####[facility] [address] [place], [address] Absolute Neut 8.1 X10 3/uL High 2.0-7.7 [facility] Comment on above: Performed By: #### L 100.0100, L300.3900, L500.2500, L300.4310 ####[facility] [address] [place], [address] Basophils/100 WBC (Bld) 0.4 % Normal 0-1 [facility] Comment on above: Performed By: #### L 100.0100, L300.3900, L500.2500, L300.4310 ####[facility] [address] [place], [address] Eosinophils/100 WBC (Bld) 0.9 % Normal 0-5 [facility] Comment on above: Performed By: #### L 100.0100, L300.3900, L500.2500, L300.4310 ####[facility] [address] [place], [address] Erythrocyte distribution width (RBC) [Ratio] 15.7 % High 11.6-14.6 [facility] Comment on above: Performed By: #### L 100.0100, L300.3900, L500.2500, L300.4310 ####[facility] [address] [place], [address] Hematocrit (Bld) [Volume fraction] 50.1 % High 37-47 [facility] Comment on above: Performed By: #### L 100.0100, L300.3900, L500.2500, L300.4310 ####[facility] [address] [place], [address] Hemoglobin (Bld) [Mass/Vol] 16.3 g/dL High 12.0-15.0 [facility] Comment on above: Performed By: #### L 100.0100, L300.3900, L500.2500, L300.4310 ####[facility] [address] [place], [address] IG% 0.900 Normal 0.0-0.9 [facility] Comment on above: Result Comment: IG% - Immature Granulocytes (promyelocytes, myelocytes and metamyelocytes) > 1% indicates that a LEFT SHIFT is Present. Performed By: #### L 100.0100, L300.3900, L500.2500, L300.4310 ####[facility] [address] [place], [address] Lymphocytes/100 WBC (Bld) 11.0 % Low 19-41 [facility] Comment on above: Performed By: #### L 100.0100, L300.3900, L500.2500, L300.4310 ####[facility] [address] [place], [address] MCH (RBC) [Entitic mass] 29.9 pg Normal 27.0-32.0 [facility] Comment on above: Performed By: #### L 100.0100, L300.3900, L500.2500, L300.4310 ####[facility] [address] [place], [address] MCHC (RBC) [Mass/Vol] 32.5 g/dL Normal 32-36 [facility] Comment on above: Performed By: #### L 100.0100, L300.3900, L500.2500, L300.4310 ####[facility] [address] [place], [address] MCV (RBC) [Entitic vol] 91.9 fL Normal 81-99 [facility] Comment on above: Performed By: #### L 100.0100, L300.3900, L500.2500, L300.4310 ####[facility] [address] [place], [address] Monocytes/100 WBC (Bld) 9.0 % Normal 0-10 [facility] Comment on above: Performed By: #### L 100.0100, L300.3900, L500.2500, L300.4310 ####[facility] [address] [place], [address] Neutrophils/100 WBC (Bld) 77.8 % High 47-70 [facility] Comment on above: Performed By: #### L 100.0100, L300.3900, L500.2500, L300.4310 ####[facility] [address] [place], [address] Nucleated RBC (Bld) [#/Vol] 0 10*3/uL Normal 0-5 [facility] Comment on above: Performed By: #### L 100.0100, L300.3900, L500.2500, L300.4310 ####[facility] [address] [place], [address] Platelet mean volume (Bld) [Entitic vol] 11.8 fL Normal 6.2-12.0 [facility] Comment on above: Performed By: #### L 100.0100, L300.3900, L500.2500, L300.4310 ####[facility] [address] [place], [address] Platelets (Bld) [#/Vol] 222 10*3/uL Normal 150-450 [facility] Comment on above: Performed By: #### L 100.0100, L300.3900, L500.2500, L300.4310 ####[facility] [address] [place], [address] RBC (Bld) [#/Vol] 5.45 10*6/uL High 4.2-5.4 [facility] Comment on above: Performed By: #### L 100.0100, L300.3900, L500.2500, L300.4310 ####[facility] [address] [place], [address] RDW SD 52.5 fl High 35.1-43.9 [facility] Comment on above: Performed By: #### L 100.0100, L300.3900, L500.2500, L300.4310 ####[facility] [address] [place], [address] WBC (Bld) [#/Vol] 10.5 10*3/uL Normal 4.4-11.0 [facility] Comment on above: Performed By: #### L 100.0100, L300.3900, L500.2500, L300.4310 ####[facility] [address] [place], [address] Cardiology Visit Reporton Cardiology Visit Report [facility] [address] [place], [place] [address] OFFICE VISIT Date of Service: 07/23/24 MR#: [id number] Acct: [id number] Name: LINDA PERALTA Rep #: [id number] : 1945 Provider: PEDRO samuel Age/Sex: 79/F Location[place] [facility] Status: Signed HPI HPI History of Present Illness Surgical H P: Yes Details: Linda Peralta is an 79-year-old female [...] with mod-severe aortic stenosis. 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 Is patient in pain?: No Allergies ciprofloxacin (From Cipro) Allergy (Verified 07/23/24 08:14) Rash Penicillins Allergy (Verified 07/23/24 08:14) Rash Medications ???Medication ???Instructions ???Recorded ???Confirmed ???Type acetaminophen 500 mg tablet 1,000 mg (2 x 500 mg) PO Q6H PRN 0 04/08/20 07/23/24 Rx Pain Score 1-10 denosumab 60 mg/mL subcutaneous 60 mg subcut [id number] #1 mL 07/23/24 Rx syringe (Prolia) hydrocortisone [...] No Nurse's Note: heart cath august 05 [facility] Medical History MVP (mitral valve prolapse) Aortic stenosis Hypokalemia Elevated serum creatinine Acute prerenal azotemia History of kidney cancer 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 Hypercalcemia Frequent falls Closed head injury (03/20/20) Hypoglycemia (03/20/20) Acute electrocardiogram changes Atopic dermatitis Osteopenia determined by x-ray History of pulmonary embolism shelter (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 Orthostatic hypotension Chronic [...] Other 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 Normal [facility] Chest PA and Lateralon 07-23 Chest PA and Lateral [facility] Imaging Services [address] [place] [address] Chest PA and Lateral MR#: [id number] Acct: [id number] Name: LINDA PERALTA Rep #: [id number] : 1945 F 79 From: Yony Gaitan PCP: Dr. Amos Floyd MD Status[place] [facility]: Chest PA and Lateral Date of Exam: 07/23/24 Exam# [id number] Ordering Dr: Heaven Bolton PICK UP PICK UP- C PROCEDURE: CHEST PA AND LATERAL 07/23/2024 [...] pulmonary vascular congestion. Mild cardiomegaly. Reading Location: [id number] CC: PICK UP-C Heaven Bolton; Dr. 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 Normal [facility] Eosinophil percentageOrdered By: Jordan Marte on 07-23-2024 Eosinophils/100 WBC (Bld) 0.9 % 0-5 [facility] Erythrocyte distribution wid th ratioOrdered By: Jordan Marte on 07-23-2024 Erythrocyte distribution width (RBC) [Ratio] 15.7 % High 11.6-14.6 [facility] Erythrocyte distribution wid th standard deviationOrdered By: Jordan Marte on 07-23-2024 Erythrocyte distribution width (RBC) [Ratio] 52.5 fl High 35.1-43.9 [facility] Hematocrit Auto (Bld) [Volum e fraction]Ordered By: Jordan Marte on 07-23-2024 Hematocrit (Bld) [Volume fraction] 50.1 % High 37-47 [facility] Hemoglobin measurementOrdere d By: Jordan Marte on 07-23-2024 Hemoglobin (Bld) [Mass/Vol] 16.3 g/dL High 12.0-15.0 [facility] Immature granulocytes/100 WB C Auto (Bld)Ordered By: Jordan Marte on 07-23-2024 Immature granulocytes/100 WBC (Bld) 0.900 % 0.0-0.9 [facility] Comment on above: IG% - Immature Granu locytes (promyelocytes, myelocytes and metamyelocytes) > 1% indicates that a LEFT SHIFT is Present. MCV (mean corpuscular volume ) determinationOrdered By: Bentley Estuardo on 07-23-2024 MCV (RBC) [Entitic vol] 91.9 fL 81-99 [facility] Mean corpuscular hemoglobin (MCH) determinationOrdered By: Bentley Estuardo on 07-23-2024 MCH (RBC) [Entitic mass] 29.9 pg 27.0-32.0 [facility] Mean corpuscular hemoglobin concentration (MCHC) determinationOrdered By: Jordan Estuardo on 07-23-2024 MCHC (RBC) [Mass/Vol] 32.5 g/dL 32-36 [facility] Mean platelet volume determi nationOrdered By: Bentley Estuardo on 07-23-2024 Platelet mean volume (Bld) [Entitic vol] 11.8 fL 6.2-12.0 [facility] Monocyte percentageOrdered B y: Jordan Estuardo on 07-23-2024 Monocytes/100 WBC (Bld) 9.0 % 0-10 [facility] Neutrophil percentageOrdered By: Jordan Estuardo on 07-23-2024 Neutrophils/100 WBC (Bld) 77.8 % High 47-70 [facility] Nucleated red blood cell per centageOrdered By: Jordan Estuardo on 07-23-2024 Nucleated RBC/100 WBC (Bld) [Ratio] 0 % 0-5 [facility] Partial Thromboplast Timeon 07-23-2024 aPTT Coag (Bld) [Time] 33.9 s Normal 24.1-36.2 [facility] Comment on above: Performed By: #### L 9200.0000 #### [facility] Laboratory [address] [place] [address], [id number] Platelet countOrdered By: Cy ril Estuardo on 07-23-2024 Platelets (Bld) [#/Vol] 222 10*3/uL 150-450 [facility] Prothrombin Time w/INRon INR Coag (PPP) [Relative time] 2.4 {INR} Normal [facility] Comment on above: Performed By: #### L 100.0100, L300.3900, L500.2500, L300.4310 ####[facility] [address] [place], [address] PT Coag (PPP) [Time] 26.4 s High 11.7-14.9 [facility] Comment on above: Performed By: #### L 100.0100, L300.3900, L500.2500, L300.4310 ####[facility] [address] [place], [address] RBC Auto (Bld) [#/Vol]Ordere d By: Jordan Marte on 07-23-2024 RBC (Bld) [#/Vol] 5.45 10*6/uL High 4.2-5.4 [facility] White blood cell (WBC) count Ordered By: Jordan Marte on 07-23-2024 WBC (Bld) [#/Vol] 10.5 10*3/uL 4.4-11.0 [facility] CNNURSEon 07-10-2024 [facility] Nurse Visit (FAMPWS) -------- LINDA PERALTA ([id number]) 1945 F Date Time Provider Department 07/10/24 9:15 AM [place] NURSE FAMPWS During your visit today, we recorded the [...] [I25.10] 04/25/2009 DVT (deep venous thrombosis) ([facility]) [I82.409] 03/23/2012 01/23/2024 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 [...] Status:Closed by DESIRAE ARZOLA on 07/10/24 Normal [facility] 1,25-dihydroxyvitamin D3 [Ma ss/Vol]on 07-05-2024 VIT D1,25 DIHYDROXY 41.2 pg/mL Normal 19.9-79.3 [facility] Comment on above: Order Comment: Speci men Type: BLOOD SPECIMENOrdering Facility: [facility] Address: [address] [place] [address] Performed By: #### 1 989-3, 164-3 ####[facility] [id number] [place] [id number] [place] 25(OH)D3 [facility] 25-hydroxyvitamin D3 [Mass/Vol] 37.5 ng/mL Normal 31.0-80.0 [facility] Comment on above: Order Comment: Speci men Type: BLOOD SPECIMENOrdering Facility: [facility] Address: [address] [place] [address] Performed By: #### 1 989-3, 1643 ####[facility] [id number] [place] [address] [place] Calcium.ionized [Moles/Vol]o n 07-05-2024 Calcium.ionized (Bld) [Mass/Vol] 1.34 mmol/L High 1.08-1.30 [facility] Comment on above: Order Comment: Speci men Type: BLOOD SPECIMENOrdering Facility: [facility] Address: [address] [place] [address] Performed By: #### 1 995-0 ####[facility] [id number] [address] [address] [place] Calcium.ionized adjusted to pH 7.4 (Bld) [Moles/Vol] 1.33 mmol/L High 1.08-1.30 [facility] Comment on above: Order Comment: Speci men Type: BLOOD SPECIMENOrdering Facility: [facility] Address: [address] [place] [address] Performed By: #### 1 995-0 ####[facility] [id number] [address] [address] [place] Comprehensive metabolic 2000 panelon 07-05-2024 Albumin [Mass/Vol] 4.0 g/dL Normal 3.9-4.9 [facility] Comment on above: Order Comment: Speci men Type: BLOOD SPECIMENOrdering Facility: [facility] Address: [address] [place] [address] Performed By: #### 2 731-8, 3016-3, 64793-0, 3024-7 ####[facility] [id number] [address] [address] [place] ALP [Catalytic activity/Vol] 91 U/L Normal 34-123 [facility] Comment on above: Order Comment: Speci men Type: BLOOD SPECIMENOrdering Facility: [facility] Address: [address] [place] [address] Performed By: #### 2 731-8, 3016-3, 21210-0, 3024-7 ####[facility] [id number] [address] [address] [place] ALT [Catalytic activity/Vol] 26 U/L Normal 7-38 [facility] Comment on above: Order Comment: Speci men Type: BLOOD SPECIMENOrdering Facility: [facility] Address: [address] [place] [address] Performed By: #### 2 731-8, 3016-3, 51946-5, 3024-7 ####[facility] LABCLIA [id number] [address] [address] [place] Anion gap [Moles/Vol] 15 mmol/L Normal 8-15 [facility] Comment on above: Order Comment: Speci men Type: BLOOD SPECIMENOrdering Facility: [facility] Address: [address] [place] [address] Performed By: #### 2 731-8, 3016-3, 86424-1, 3024-7 ####[facility] LABCL[facility] [id number] [address] [address] [place] AST [Catalytic activity/Vol] 24 U/L Normal 13-35 [facility] Comment on above: Order Comment: Speci men Type: BLOOD SPECIMENOrdering Facility: [facility] Address: [address] [place] [address] Performed By: #### 2 731-8, 3016-3, 25279-8, 3024-7 ####[facility] LABCL[facility] [id number] [address] [address] [place] Bilirubin [Mass/Vol] 0.6 mg/dL Normal 0.2-1.3 [facility] Comment on above: Order Comment: Speci men Type: BLOOD SPECIMENOrdering Facility: [facility] Address: [address] [place] [address] Performed By: #### 2 731-8, 3016-3, 31763-7, 3024-7 ####[facility] LABCL[facility] [id number] [address] [address] [place] Calcium [Mass/Vol] 10.2 mg/dL Normal 8.5-10.2 [facility] Comment on above: Order Comment: Speci men Type: BLOOD SPECIMENOrdering Facility: [facility] Address: [address] [place] [address] Performed By: #### 2 731-8, 3016-3, 64732-6, 3024-7 ####[facility] [id number] [address] [address] [place] Chloride [Moles/Vol] 104 mmol/L Normal 98-107 [facility] Comment on above: Order Comment: Speci men Type: BLOOD SPECIMENOrdering Facility: [facility] Address: [address] [place], [place] [address] Performed By: #### 2 731-8, 3016-3, 55503-9, 3024-7 ####[facility] [id number] [place] [address] [place] CO2 [Moles/Vol] 22 mmol/L Normal 22-30 [facility] Comment on above: Order Comment: Speci men Type: BLOOD SPECIMENOrdering Facility: [facility] Address: [address] [place] [address] Performed By: #### 2 731-8, 3016-3, 75997-8, 3024-7 ####[facility] [id number] [address] [address] [place] Creatinine [Mass/Vol] 1.34 mg/dL High 0.58-0.96 [facility] Comment on above: Order Comment: Speci men Type: BLOOD SPECIMENOrdering Facility: [facility] Address: [address] [place], [place] [address] Performed By: #### 2 731-8, 3016-3, 92149-6, 3024-7 ####[facility] [id number] [address] [address] [place] Creatinine and Glomerular filtration rate.predicted panel (S/P/Bld) 40 mL/min/1.73m??? Low >=60 [facility] Comment on above: Order Comment: Speci men Type: BLOOD SPECIMENOrdering Facility: [facility] Address: [address] [place] [address] Result Comment: Marisabel mated Glomerular Filtration Rate [...] actual GFR. Performed By: #### 2 731-8, 3016-3, 30430-5, 3023-7 ####[facility] [id number] [address] [address] [place] Glucose [Mass/Vol] 87 mg/dL Normal 74-99 [facility] Comment on above: Order Comment: Jody fairbanks Type: BLOOD SPECIMENOrdering Facility: [facility] Address: [address] [place] [address] Result Comment: The [place] Diabetes Association (ADA) provides guidance for cutoff [...] Standards of Medical Care in Diabetes 2016, [place] [employer]. Diabetes Care. 2016.39(Suppl 1). Performed By: #### 2 731-8, 3016-3, 36484-8, 7 ####[facility] [id number] [address] [address] [place] Potassium [Moles/Vol] 5.1 mmol/L Normal 3.7-5.1 [facility] Comment on above: Order Comment: Jody fairbanks Type: BLOOD SPECIMENOrdering Facility: [facility] Address: [address] [place] [address] Performed By: #### 2 731-8, 3016-3, 98407-2, 3023-7 ####[facility] [id number] [address] [address] [place] Protein [Mass/Vol] 6.0 g/dL Low 6.3-8.0 [facility] Comment on above: Order Comment: Speci men Type: BLOOD SPECIMENOrdering Facility: [facility] Address: [address] [place] [address] Performed By: #### 2 731-8, 3016-3, 72251-7, 3024-7 ####[facility] [id number] [address] [address] [place] Sodium [Moles/Vol] 141 mmol/L Normal 136-144 [facility] Comment on above: Order Comment: Speci men Type: BLOOD SPECIMENOrdering Facility: [facility] Address: [address] [place] [address] Performed By: #### 2 731-8, 3016-3, 65949-5, 3024-7 ####[facility] [id number] [address] [address] [place] Urea nitrogen [Mass/Vol] 42 mg/dL High 7-21 [facility] Comment on above: Order Comment: Speci men Type: BLOOD SPECIMENOrdering Facility: [facility] Address: [address] [place] [address] Performed By: #### 2 731-8, 3016-3, 88592-9, 3024-7 ####[facility] [id number] [address] [address] [place] GALAC PHOS URIDYL Omar 07-05 [facility] PHOS URIDYL TR 26.2 U/g Hb Normal >=19.4 [facility] Comment on above: Order Comment: Speci men Type: BLOOD SPECIMENOrdering Facility: [facility] Address: [address] [place] [address] Result Comment: Norm al otxhktnxm-3-chfbintbm uridyltransferase activity. Results reviewed and interpreted by Fatmata Craven MD, PhD, FACMG INTERPRETIVE INFORMATION: Uzrno-9-Prcl Uridyltransferase One U/g Hb is equivalent to one umol/hour/gram of hemoglobin (umol/hr/g Hb). Genotype Hprxr-5-Zuct Uridyltransferase activity(umol/hr/g Hb) Classic galactosemia(G/G) ..... Less than or equal to 0.7 Alva galactosemia(D/G) ............. 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 6.5-16.2 [place] homozygous(D/D) ............... 6.4-16.5 Alva carrier(D/N) .................. 12.0-24.0 Normal(N/N) .................. Greater than or equal to 19.4 This test was developed and its performance characteristics determined by [employer]. It has not been cleared or approved by the [place] Food and Drug Administration. This test was performed in a CLIA certified laboratory and is intended for clinical purposes. Counseling and informed consent are recommended for genetic testing. Consent forms are available online. Performed By: [facility] [address] [place] [address] Tape Coater: Jefefrson Kerr MD, PhD CLIA Number: [id number] Performed By: #### G 1PHOS ####[facility]IES[facility] [id number] [place] [address] PTH-Intact [facility] 05- Parathyrin.intact [Mass/Vol] 52 pg/mL Normal 15-65 [facility] Comment on above: Order Comment: Speci men Type: BLOOD SPECIMENOrdering Facility: [facility] Address: [address] [place] [address] Performed By: #### 2 731-8, 3016-3, 62812-2, 3024-7 ####[facility] LABCL[facility] [id number] [place] [id number] [place] T4 Free SerPl-mCncon 025 Free T4 [Mass/Vol] 1.4 ng/dL Normal 0.9-1.7 [facility] Comment on above: Order Comment: Speci men Type: BLOOD SPECIMENOrdering Facility: [facility] Address: [address] [place] [address] Performed By: #### 2 731-8, 3016-3, 49651-9, 3024-7 ####[facility] [id number] [place] [address] [place] TSH SerPl-aCncon 07-05-2024 TSH Qn 0.460 m[IU]/L Normal 0.270-4.200 [facility] Comment on above: Order Comment: Speci men Type: BLOOD SPECIMENOrdering Facility: [facility] Address: [address] [place] [address] Performed By: #### 2 731-8, 3016-3, 97002-1, 3024-7 ####[facility] [id number] [place] [id number] [place] Echo Transesophageal (TOMI)on 07-03-2024 Echo Transesophageal (TOMI) [facility] [address] [place] [address] Echo Transesophageal (TOMI) 07/03/24 1154 MR#: [id number] Acct: [id number] Name: LINDA PERALTA Rep #: [id number] : 1945 79 From: Jordan Marte MD Attending Dr: NIGHAT Burns Status: REG CL I Ordering Dr: Tucker Reyes Date: 07/03/24 Location: [facility] Sex: F C Admitted: Reason For Study : AORTIC STENOSIS Medication TOMI probe 6VT-D (SN [id number]) passed with minimal difficulty. No complications were noted. Cetacaine Topical Alligator given X3 orally. Left Ventricle Normal LV [...] Date Dictated: 07/03/24 1154 Date Transcribed: 07/03/24 1505 Doll Wigs Hackler: Signed Normal [facility] Transesophageal echocardiogr am reportOrdered By: Jordan Marte on 07-03-2024 Study report [facility] [address] [place] [address] Echo Transesophageal (TOMI) 07/03/24 1154 MR#: [id number] Acct: [id number] Name: LINDA PERALTA Rep #:[id number] : 1945 79 From: Jordan Gaitan Attending Dr: NIGHAT Burns atus: REG CLI Ordering Dr: Tucker Reyes Date: 07/03/24 Location: [facility] Sex: F C Admitted: Reason For Study : AORTIC STENOSIS Medication TOMI probe 6VT-D (SN [id number]) passed with minimal difficulty. No complications were noted. Cetacaine Topical Alligator given X3 orally. Left Ventricle Normal LV [...] Physician: Amos Floyd Performed By: Oksana Perales, COLT, RVT 07/03/24 1505 Date _ Jordan Marte MD CC: Dr. Amos Floyd MD; NIGHAT Burns ~ Date Dictated: 07/03/24 1154 Date Transcribed: 07/03/24 1505 Doll Wigs Hackler: Signed [facility] Work Phone: International normalized rat io (INR) measurement by fingerstickOrdered By: Basim Velasquez on 06-21-2024 INR Coag (BldC) [Relative time] 2.0 [facility] Comment on above: Critical Value > 4.0 Protime w/INR Fingerstickon 06-21-2024 INR Coag (PPP) [Relative time] 2.0 {INR} Normal [facility] Comment on above: Result Comment: Crit ical Value > 4.0 Performed By: #### L 9200.0000 #### [facility] [address] [place], [address] Protime Coagsen 22.3 SEC High 11.7-14.9 [facility] Comment on above: Performed By: #### L 9200.0000 #### [facility] [address] [place], [address] Whole blood prothrombin time Ordered By: Basim Velasquez on 06-21-2024 PT Coag (Bld) [Time] 22.3 s High 11.7-14.9 [facility] Echo Completeon 05-24-2024 Echo Complete [facility] [address] [place] [address] Echo Complete 05/24/24 1348 MR#: [id number] Acct: [id number] Name: LINDA PERALTA Rep #: [id number] : 1945 79 From: Jordan Marte MD Attending Dr: NIGHAT Burns Status: REG CL I Ordering Dr: Tucker Reyes Date: 05/24/24 Location: [facility] Sex: F C Admitted: Reason For Study [...] Date _ (more content not included)... Normal [facility] Echocardiogram study reportO rdered By: Jordan Marte on 05-24-2024 Study report [facility] [address] [place] [address] Echo Complete 05/24/24 1348 MR#: [id number] Acct: [id number] Name: LINDA PERALTA Rep #:[id number] : 1945 79 From: Jordan Gaitan Attending Dr: NIGHAT Burns atus: REG CLI Ordering Dr: Tucker Reyes Date: 05/24/24 Location: [facility] Sex: F C Admitted: Reason For Study [...] Dictated: 05/24/24 1348 Date Transcribed: 05/24/24 1604 Doll Wigs Hackler: Signed [facility] Work Phone: INR Coag (BldC) [Relative ti me]Ordered By: Basim Velasquez on 05-24-2024 INR Coag (Bld) [Relative time] 2.7 {INR} [facility] Comment on above: Critical Value > 4.0 International normalized rat io (INR) measurement by fingerstickOrdered By: Basim Velasquez on 05-24-2024 INR Coag (BldC) [Relative time] 2.7 [facility] Comment on above: Critical Value > 4.0 PT Coag (Bld) [Time]Ordered By: Basim Velasquez on 05-24-2024 Bedside Prothrombin Time 28.1 SEC High 11.7-14.9 [facility] Protime w/INR Fingerstickon 05-24-2024 INR Coag (PPP) [Relative time] 2.7 {INR} Normal [facility] Comment on above: Result Comment: Crit ical Value > 4.0 Performed By: #### L 500.2500, L100.0100 #### [facility] Laboratory [address], [place], [id number] Protime Coagsen 28.1 SEC High 11.7-14.9 [facility] Comment on above: Performed By: #### L 500.2500, L100.0100 #### [facility] [address], [place], [id number] Whole blood prothrombin time Ordered By: Basim Velasquez on 05-24-2024 PT Coag (Bld) [Time] 28.1 s High 11.7-14.9 [facility] Protime w/INR Fingerstickon 04-30-2024 INR Coag (PPP) [Relative time] 2.5 {INR} Normal [facility] Comment on above: Result Comment: Crit ical Value > 4.0 Performed By: #### L 500.2500, L100.0100 #### [facility] Laboratory [address] [place], [address] Protime Coagsen 26.5 SEC High 11.7-14.9 [facility] Comment on above: Performed By: #### L 500.2500, L100.0100 #### [facility] Laboratory [address] [place], [address] Cardiology Visit Reporton Cardiology Visit Report [facility] [address] [place], [place] [address] OFFICE VISIT Date of Service: 04/29/24 MR#: [id number] Acct: [id number] Name: LINDA PERALTA Rep #: [id number] : 1945 Provider: NIGHAT Burns Age/Sex: 79/F Location: [facility] Status: Signed HPI HPI History [...] with mod-severe aortic stenosis. 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 [facility] Medical History MVP (mitral valve prolapse) Aortic stenosis Hypokalemia Elevated serum creatinine Acute prerenal azotemia History of kidney cancer 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 Hypercalcemia Frequent falls Closed head injury (03/20/20) Hypoglycemia (03/20/20) Acute electrocardiogram changes Atopic dermatitis Osteopenia determined by x-ray History of pulmonary embolism shelter (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 Orthostatic hypotension Chronic [...] Other History of DVT (deep vein thrombosis) shelter (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 Social History ... Normal [facility] INR Coag (BldC) [Relative ti me]Ordered By: Basim Velasquez on 04-26-2024 INR Coag (Bld) [Relative time] 2.5 {INR} [facility] Comment on above: Critical Value > 4.0 International normalized rat io (INR) measurement by fingerstickOrdered By: Basim Velasquez on 04-26-2024 INR Coag (BldC) [Relative time] 2.5 [facility] Comment on above: Critical Value > 4.0 PT Coag (Bld) [Time]Ordered By: Basim Velasquez on 04-26-2024 Bedside Prothrombin Time 26.5 SEC High 11.7-14.9 [facility] Whole blood prothrombin time Ordered By: Basim Velasquez on 04-26-2024 PT Coag (Bld) [Time] 26.5 s High 11.7-14.9 [facility] Blood urea nitrogen (BUN)/cr eatinine ratioOrdered By: Jennifer Tarango on 04-03-2024 Urea nitrogen/Creatinine [Mass ratio] 21.8 mg/mg High 10-20 [facility] Carbon dioxide measurementOr dered By: Jennifer Tarango on 04-03-2024 CO2 [Moles/Vol] 26.0 mmol/L 21.0-32.0 [facility] Chloride measurementOrdered By: Jennifer Tarango on 04-03-2024 Chloride [Moles/Vol] 107 mmol/L 98-107 [facility] Estimated glomerular filtrat ion rate (GFR) AmericanOrdered By: Jennifer Tarango on 04-03-2024 Estimated GFR (MDRD) Amer 46 mL/min Low >60 [facility] Comment on above: GFR Calc Glomerular filtration rate ( GFR) estimationOrdered By: Jennifer Tarango on 04-03-2024 Estimated GFR (MDRD) Non-Af Amer 38 mL/min Low >60 [facility] Comment on above: Non- GFR Calc GFR/1.73 sq M.predicted among non-blacks MDRD (S/P/Bld) [Vol rate/Area] 38 mL/min/{1.73_m2} Low >60 [facility] Comment on above: Non- GFR Calc Glucose measurementOrdered B y: Jennifer Tarango on 04-03-2024 Glucose [Mass/Vol] 152 mg/dL High 74-106 [facility] Comment on above: Fasting Glucose resu lt greater than or equal to 126 mg/dL suggests DIABETES MELLITUS per A.D.A. criteria. Phosphorus measurementOrdere d By: Jennifer Tarango on 04-03-2024 Phosphorus Level 2.3 mg/dL Low 2.5-4.9 [facility] Potassium measurementOrdered By: Jennifer Tarango on 04-03-2024 Potassium [Moles/Vol] 4.2 mmol/L 3.5-5.1 [facility] Renal Profileon 04-03-2024 Albumin [Mass/Vol] 3.4 g/dL Normal 3.2-5.0 [facility] Comment on above: Performed By: #### L 9200.0000 #### [facility] [address] [place], [address] BUN/CRE 21.8 RATIO High 10-20 [facility] Comment on above: Performed By: #### L 9200.0000 #### [facility] [address] [place], [address] CA,Total 9.3 mg/dL Normal 8.5-10.1 [facility] Comment on above: Performed By: #### L 9200.0000 #### [facility] [address] [place], [address] Chloride [Moles/Vol] 107 mmol/L Normal 98-107 [facility] Comment on above: Performed By: #### L 9200.0000 #### [facility] [address] [place], [address] CO2 [Moles/Vol] 26.0 mmol/L Normal 21.0-32.0 [facility] Comment on above: Performed By: #### L 9200.0000 #### [facility] [address] [place], [address] Creatinine [Mass/Vol] 1.42 mg/dL High 0.55-1.02 [facility] Comment on above: Result Comment: The validity of the calculated GFR GFRAA in patients over 70 years has not been determined. Clinical correlation is essential. Performed By: #### L 9200.0000 #### [facility] [address] [place], [address] EST GFR - AA 46 mL/min Low >60 [facility] Comment on above: Result Comment: Afri can [place] GFR Calc Performed By: #### L 9200.0000 #### [facility] [address] [place], [address] GFR/1.73 sq M.predicted among non-blacks MDRD (S/P/Bld) [Vol rate/Area] 38 mL/min/{1.73_m2} Low >60 [facility] Comment on above: Result Comment: Non- GFR Calc Performed By: #### L 9200.0000 #### [facility] [address] [place], [address] Glucose [Mass/Vol] 152 mg/dL High 74-106 [facility] Comment on above: Result Comment: Fast ing Glucose result greater than or equal to 126 mg/dL suggests DIABETES MELLITUS per A.D.A. criteria. Performed By: #### L 9200.0000 #### [facility] [address] [place], [address] Phosphate [Mass/Vol] 2.3 mg/dL Low 2.5-4.9 [facility] Comment on above: Performed By: #### L 9200.0000 #### [facility] [address] [place], [address] Potassium [Moles/Vol] 4.2 mmol/L Normal 3.5-5.1 [facility] Comment on above: Performed By: #### L 9200.0000 #### [facility] [address] [place], [address] Sodium [Moles/Vol] 140 mmol/L Normal 136-145 [facility] Comment on above: Performed By: #### L 9200.0000 #### [facility] [address] [place], [address] Urea nitrogen [Mass/Vol] 31 mg/dL High 7-18 [facility] Comment on above: Performed By: #### L 9200.0000 #### [facility] [address] [place], [address] Serum or plasma albumin scott urement (mass/volume)Ordered By: Jennifer Tarango on 04-03-2024 Albumin [Mass/Vol] 3.4 g/dL 3.2-5.0 [facility] Serum or plasma calcium scott urement (mass/volume)Ordered By: Jennifer Tarango on 04-03-2024 Calcium [Mass/Vol] 9.3 mg/dL 8.5-10.1 [facility] Serum or plasma creatinine m easurement (mass/volume)Ordered By: Jennifer Tarango on 04-03-2024 Creatinine [Mass/Vol] 1.42 mg/dL High 0.55-1.02 [facility] Comment on above: The validity of the calculated GFR & GFRAA in patients over 70 years has not been determined. Clinical correlation is essential. Serum or plasma urea nitroge n measurement (mass/volume)Ordered By: Jennifer Tarango on 04-03-2024 Urea nitrogen [Mass/Vol] 31 mg/dL High 7-18 [facility] Sodium levelOrdered By: Dustin Tarango on 04-03-2024 Sodium [Moles/Vol] 140 mmol/L 136-145 [facility] INR Coag (BldC) [Relative ti me]Ordered By: Basim Velasquez on 03-21-2024 INR Coag (Bld) [Relative time] 2.3 {INR} [facility] Comment on above: Critical Value > 4.0 International normalized rat io (INR) measurement by fingerstickOrdered By: Basim Velasquez on 03-21-2024 INR Coag (BldC) [Relative time] 2.3 [facility] Comment on above: Critical Value > 4.0 PT Coag (Bld) [Time]Ordered By: Basim Velasquez on 03-21-2024 Bedside Prothrombin Time 24.0 SEC High 11.7-14.9 [facility] Protime w/INR Fingerstickon 03-21-2024 INR Coag (PPP) [Relative time] 2.3 {INR} Normal [facility] Comment on above: Result Comment: Crit ical Value > 4.0 Performed By: #### L 500.2500, L100.0100 #### [facility] Laboratory [address] [place], [place], [id number] Protime Coagsen 24.0 SEC High 11.7-14.9 [facility] Comment on above: Performed By: #### L 500.2500, L100.0100 #### [facility] [address] [place], [address] Whole blood prothrombin time Ordered By: Basim Velasquez on 03-21-2024 PT Coag (Bld) [Time] 24.0 s High 11.7-14.9 [facility] Prothrombin Time w/INRon INR Normal [facility] Comment on above: Result Comment: FING ERSTICK Performed By: #### L 9200.0000 #### [facility] [address] [place], [address] PROTIME Normal 11.7-14.9 [facility] Comment on above: Result Comment: FING ERSTICK Performed By: #### L 9200.0000 #### [facility] [address] [place], [address] Protime w/INR Fingerstickon 02-28-2024 INR Coag (PPP) [Relative time] 3.1 {INR} Normal [facility] Comment on above: Result Comment: Crit ical Value > 4.0 Performed By: #### L 9200.0000 #### [facility] [address] [place], [address] Protime Coagsen 32.1 SEC High 11.7-14.9 [facility] Comment on above: Performed By: #### L 9200.0000 #### [facility] [address] [place], [address] Renal Profileon 02-28-2024 ALB Normal 3.2-5.0 [facility] Comment on above: Order Comment: RENAL IS FOR Result Comment: UNRULY ERSTICK Performed By: #### L 9200.0000 #### [facility] [address] [place], [address] BUN Normal 7-18 [facility] Comment on above: Order Comment: RENAL IS FOR Result Comment: FING ERSTICK Performed By: #### L 9200.0000 #### [facility] [address] [place], [address] BUN/CRE Normal 10-20 [facility] Comment on above: Order Comment: RENAL IS FOR Result Comment: FING ERSTICK Performed By: #### L 9200.0000 #### [facility] [address] [place], [address] CA,Total Normal 8.5-10.1 [facility] Comment on above: Order Comment: RENAL IS FOR Result Comment: FING ERSTICK Performed By: #### L 9200.0000 #### [facility] [address] [place], [address] CL Normal 98-107 [facility] Comment on above: Order Comment: RENAL IS FOR Result Comment: FING ERSTICK Performed By: #### L 9200.0000 #### [facility] [address] [place], [address] CO2 Normal 21.0-32.0 [facility] Comment on above: Order Comment: RENAL IS FOR Result Comment: FING ERSTICK Performed By: #### L 9200.0000 #### [facility] [address] [place], [address] CREAT,SERUM Normal 0.55-1.02 [facility] Comment on above: Order Comment: RENAL IS FOR Result Comment: FING ERSTICK Performed By: #### L 9200.0000 #### [facility] [address] [place], [address] EST GFR Normal >60 [facility] Comment on above: Order Comment: RENAL IS FOR Result Comment: FING ERSTICK Performed By: #### L 9200.0000 #### [facility] [address] [place], [address] EST GFR - AA Normal >60 [facility] Comment on above: Order Comment: RENAL IS FOR Result Comment: FING ERSTICK Performed By: #### L 9200.0000 #### [facility] [address] [place], [address] GLU Normal 74-106 [facility] Comment on above: Order Comment: RENAL IS FOR Result Comment: FING ERSTICK Performed By: #### L 9200.0000 #### [facility] [address] [place], [address] PHOS Normal 2.5-4.9 [facility] Comment on above: Order Comment: RENAL IS FOR Result Comment: FING ERSTICK Performed By: #### L 9200.0000 #### [facility] [address] [place], [address] Potassium Normal 3.5-5.1 [facility] Comment on above: Order Comment: RENAL IS FOR Result Comment: FING ERSTICK Performed By: #### L 9200.0000 #### [facility] [address] [place], [address] Renal Profile Normal 136-145 [facility] Comment on above: Order Comment: RENAL IS FOR Result Comment: FING ERSTICK Performed By: #### L 9200.0000 #### [facility] [address] [place], [address] CNPNon 02-22-2024 [facility] Telephone (INTMWS) -------- LINDA PERALTA ([id number]) 1945 F Date Time Provider Department 02/22/24 AMOS FLOYD INTWS During your visit today, we recorded the following information about you: Carlos Roe RN 02/22/2024 9:09 AM Signed ----- Message from Amos Floyd MD sent at 02/22/2024 12:42 AM EST ----- Nodule on chest xray is a healed rib fracture. What needs follow up is a 1.1 cm nodule of her right thyroid. 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 Carlos Roe RN 02/22/2024 9:16 AM Signed Pt called and is notified of results and given providers message. Pt voices understanding. States her Yard Coordinator is Dr. Alexander Gregory in [facility]. 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 Will fax this msg and CT [...] [I25.10] 04/25/2009 DVT (deep venous thrombosis) ([facility]) [I82.409] 03/23/2012 01/23/2024 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 [...] Status:Closed by CARLOS ROE on 02/22/24 Normal [facility] Basic metabolic 2000 panelon 02-01-2024 Anion gap [Moles/Vol] 12 mmol/L Normal - [facility] Comment on above: Order Comment: Speci men Type: BLOOD SPECIMENOrdering Facility: [facility] Address: [address] [place], [place] [address] [address] Performed By: #### 2 4321-2 ####[facility] MILLTOWNCLIA [id number] [place] [address] [place] Calcium [Mass/Vol] 9.9 mg/dL Normal 8.5-10.2 [facility] Comment on above: Order Comment: Speci men Type: BLOOD SPECIMENOrdering Facility: [facility] Address: [address] [place] [address] Performed By: #### 2 4321-2 ####[facility] MILLWNCLIA [id number] [place] [address] [place] Chloride [Moles/Vol] 108 mmol/L High 98-107 [facility] Comment on above: Order Comment: Speci men Type: BLOOD SPECIMENOrdering Facility: [facility] Address: [address] [place] [address] Performed By: #### 2 4321-2 ####[facility] [id number] [place] [address] [place] CO2 [Moles/Vol] 23 mmol/L Normal 22-30 [facility] Comment on above: Order Comment: Speci men Type: BLOOD SPECIMENOrdering Facility: [facility] Address: [address] [place] [address] Performed By: #### 2 4321-2 ####[facility]ENTERWNCLIA [id number] [place] [address] [place] Creatinine [Mass/Vol] 1.36 mg/dL High 0.58-0.96 [facility] Comment on above: Order Comment: Speci men Type: BLOOD SPECIMENOrdering Facility: [facility] Address: [address] [place] [address] Performed By: #### 2 4321-2 ####[facility] FLORIDANCLIA [id number] [place] [address] [place] Creatinine and Glomerular filtration rate.predicted panel (S/P/Bld) 39 mL/min/1.73m??? Low >=60 [facility] Comment on above: Order Comment: Jody fairbanks Type: BLOOD SPECIMENOrdering Facility: [facility] Address: [address] [place] [address] Result Comment: Marisabel mated Glomerular Filtration Rate [...] actual GFR. Performed By: #### 2 4321-2 ####[facility] [id number] [place] [address] [place] Glucose [Mass/Vol] 93 mg/dL Normal 74-99 [facility] Comment on above: Order Comment: Jody fairbanks Type: BLOOD SPECIMENOrdering Facility: [facility] Address: [address] [place] [address] Result Comment: The [place] Diabetes Association (ADA) provides guidance for cutoff [...] Standards of Medical Care in Diabetes 2016, [place] Diabetes Association. Diabetes Care. 2016.39(Suppl 1). Performed By: #### 2 4321-2 ####[facility] [id number] [place] [address] [place] Potassium [Moles/Vol] 3.9 mmol/L Normal 3.7-5.1 [facility] Comment on above: Order Comment: Speci men Type: BLOOD SPECIMENOrdering Facility: [facility] Address: [address] [place], [place] [address] Performed By: #### 2 4321-2 ####[facility] NERINCCLAUDIO [id number] [place] [address] [place] Sodium [Moles/Vol] 143 mmol/L Normal 136-144 [facility] Comment on above: Order Comment: Speci men Type: BLOOD SPECIMENOrdering Facility: [facility] Address: [address] [place] [address] Performed By: #### 2 4321-2 ####[facility] NERINCCLAUDIO [id number] [address] [place] Urea nitrogen [Mass/Vol] 39 mg/dL High 7-21 [facility] Comment on above: Order Comment: Speci men Type: BLOOD SPECIMENOrdering Facility: [facility] Address: [address] [place] [address] Performed By: #### 2 4321-2 ####[facility] JACKSONWNCLIA [id number] [address] [place] CT CHEST WO IVCONon 02-01-20 CT CHEST WO IVCON * * *Final Report* * * DATE OF EXAM: Feb 01 2024 11:20AM [facility] 0541 - CT CHEST WO IVCON / PROCEDURE [...] be communicated with the ordering provider via [employer] staff message or phone message by [employer] within 2 business days of report finalization. --END OF FINDING-- Doll Wigs Hackler: PSCB Transcribe Date/Time: Feb 06 2024 12:06P Dictated by : DESIRAE MOSELEY MD This examination was interpreted and the report reviewed and electronically signed by: DESIRAE MOSELEY MD on Feb 06 2024 12:23PM EST [id number] Invalid Interpretation Code [facility] Lipid 1996 panelon 4 Cholesterol [Mass/Vol] 169 mg/dL Normal <200 Cl [facility] Comment on above: Order Comment: Speci men Type: BLOOD SPECIMENOrdering Facility: [facility] Address: [address] [place] [address] Result Comment: <200 mg/dL, Desirable 200-239 mg/dL, Borderline high >239 mg/dL, High Performed By: #### 2 4331-1 ####[facility] LABCLIA [id number] [id number] [place] [address] [id number] [place] [address] [place] Cholesterol in HDL [Mass/Vol] 78 mg/dL Normal >39 [facility] Comment on above: Order Comment: Speci men Type: BLOOD SPECIMENOrdering Facility: [facility] Address: [address] [place] [address] Result Comment: 40-5 9 mg/dL, Acceptable >59 mg/dL, High: Negative risk factor for coronary heart disease <40 mg/dL, Low: Positive risk factor for coronary heart disease Performed By: #### 2 4331-1 ####[facility] LABCLIA [id number] [address] [id number] [place] [address] [place] Cholesterol in LDL [Mass/Vol] 79 mg/dL Normal <100 [facility] Comment on above: Order Comment: Speci men Type: BLOOD SPECIMENOrdering Facility: [facility] Address: [address] [place] [address] Result Comment: <100 mg/dL, Optimal 100-129 mg/dL, Near optimal/above optimal 130-159 mg/dL, Borderline high 160-189 mg/dL, High >189 mg/dL, Very high Secondary prevention optimal LDL Cholesterol levels are recommended to be < 70 mg/dL Performed By: #### 2 4331-1 ####[facility] LABCLIA [id number] [place] [id number] [facility] [id number] [place] [address] [place] Cholesterol in LDL/Cholesterol in HDL [Mass ratio] 1.01 {ratio} Normal <2.54 [facility] Comment on above: Order Comment: Jody men Type: BLOOD SPECIMENOrdering Facility: [facility] [facility] Address: [address] [place] [address] Result Comment: Bernardo villagomez: 1. National Cholesterol Education Program ATP III Guideline At-A-Glance Quick Desk Reference: National Heart, Lung, and Blood [place]. National Institutes of Health. 2001: NIH Publication No. 01-3305. 2. An International Atherosclerosis Society position paper: global recommendations for the management of dyslipidemia: executive summary, Atherosclerosis. 2014: 232(2):410-413. Performed By: #### 2 4331-1 ####[facility] LABCLIA [id number] [address] [id number] [place] [address] [place] Cholesterol in VLDL [Mass/Vol] 12 mg/dL Normal <30 [facility] Comment on above: Order Comment: Jody men Type: BLOOD SPECIMENOrdering Facility: [facility] Address: [address] [place] [address] Performed By: #### 2 4331-1 ####[facility] LABCLIA [id number] [address] [id number] [place] [address] [place] Cholesterol non HDL [Mass/Vol] 91 mg/dL Normal <130 [facility] Comment on above: Order Comment: Jody men Type: BLOOD SPECIMENOrdering Facility: [facility] Address: [address] [place] [address] Result Comment: <130 mg/dL, Optimal 130-159 mg/dL, Near optimal/above optimal 160-189 mg/dL, Borderline high 190-219 mg/dL, High >219 mg/dL, Very high Secondary prevention optimal non HDL Cholesterol levels are recommended to be <100 mg/dL Performed By: #### 2 4331-1 ####[facility] LABCLIA [id number] [address] [id number] [place] [address] [place] Cholesterol.total/Chol esterol in HDL [Mass ratio] 2.17 {ratio} Normal <5.10 [facility] Comment on above: Order Comment: Speci men Type: BLOOD SPECIMENOrdering Facility: [facility] Address: [address] [place] [address] Performed By: #### 2 4331-1 ####[facility] LABCLIA [id number] [address] [id number] [place] [address] [place] FASTING TIME 12 hrs Normal [facility] Comment on above: Order Comment: Speci men Type: BLOOD SPECIMENOrdering Facility: [facility] Address: [address] [place], [place] [address] Performed By: #### 2 4331-1 ####[facility] LABCLIA [id number] [address] [id number] [place] [address] [place] Triglyceride [Mass/Vol] 60 mg/dL Normal <150 [facility] Comment on above: Order Comment: Speci men Type: BLOOD SPECIMENOrdering Facility: [facility] Address: [address] [place], [place] [address] Result Comment: <150 mg/dL, Normal 150-199 mg/dL, Borderline high 200-499 mg/dL, High >499 mg/dL, Very high Performed By: #### 2 4331-1 ####[facility] LABCLIA [id number] [place] [id number] [facility] [id number] [place] [id number] [place] [facility] CNOVon 01-23-2024 CNOV Office Visit (INTMWS ) -------- LINDA PERALTA ([id number]) 1945 F Date Time Provider Department 01/23/24 [...] General Outside specialists seen: Cardiology-Dr. Ortega [facility] Nephrology- Dr. Jennifer Tarango [employer] Repair Estimator- Dr. Isreal Carpio Endocrinology- Dr. Alexander Gregory. Dermatology- Dr. Isha Estrada. Podiatry- Dr. Mega Suarez. Urology: Dr. Jian Swartz. Medical/Family history review Reviewed and updated problem list, medical/surgical/family/ social history, medications, and allergies. Opioid use review Opioid Medications (last 90 days) No data to display Depression Screening DEPRESSION SCREENING Ordered at: 12/03/24 1023 Based on score and interview, patient [...] kg/m? Vision Screening: Follows with optometry/ophthalmology Right: 20/25 Left: 20/ 70 Both: 2025 Assessment/Plan Medicare annual wellness visit, subsequent (Z00.00) - Counseled on healthy diet and regular exercise - Fall avoidance information provided - Personalized prevention plan provided - Vaccine recommendations. - Colorectal cancer screening reviewed. Even with colon polyps, she was no longer interested in routine screening. Amos Floyd MD 01/23/2024 2:09 PM Signed This note was created using Postmatesriter. Subjective Linda Peralta is a 78 year [...] Use Vapin (more content not included)... Normal [facility] CNPNon 01-19-2024 CNPN Telephone (INTMWS) -------- LINDA PERALTA ([id number]) 1945 F Date Time Provider Department 01/19/24 AMOS FLOYD During your visit today, we recorded the following information about you: EriKelley nealRAYMUNDO 01/19/2024 3:46 PM Signed ----- Message from [...] you in caring for your patient. ? [facility] is committed to? 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 [M85.80] [...] Status:Closed by DESIRAE ARZOLA on 01/11/24 Normal [facility] Protime w/INR Fingerstickon 01-04-2024 INR Coag (PPP) [Relative time] 2.8 {INR} Normal [facility] Comment on above: Result Comment: Crit ical Value > 4.0 Performed By: #### L 9200.0000 #### [facility] Laboratory [facility], [place], [id number] Protime Coagsen 29.2 SEC High 11.7-14.9 [facility] Comment on above: Performed By: #### L 9200.0000 #### [facility] Laboratory [address] [place], [address] XR CHEST 2V FRONTAL/LATon XR CHEST 2V [...] be communicated with the ordering provider via [employer] staff message by Imaging Support Services within 2 business days of report finalization. Doll Wigs Hackler: PSCGianluca Transcribe Date/Time: Jan 01 2024 1:57P Dictated by : ELIZABETH GEORGE MD This examination was interpreted and the report reviewed and electronically signed by: ELIZABETH GEORGE MD on Jan 01 2024 1:58PM EST [id number] ACTIONABLE Invalid Interpretation Code [facility] XR Chest PA and LateralOrder ed By: Ccf Provider on 01-01-2024 Interpretation and review of laboratory results Abnormal [facility] Radiology Result ACTIONABLE Abnormal [facility] Comment on above: This report contains [...] contact your provider for the next steps. [facility] XR Chest PA and Lateralon IMPRESSION: Redemonstration of 2.1 cm nodular density in the right lower lobe. Incidental Finding: Follow-up Acuity: Incidental Finding: Suspicious appearing incidentally detected nodular lung density on CXR Routing Code: RI_1 Recommendation: CT Chest WO IVCON Time Frame: in 4 weeks COMMUNICATION:? Results will be communicated with the ordering provider via [employer] staff message by Imaging Support Services within 2 business days of report finalization. Doll Wigs Hackler: STEPAN Transcribe Date/Time: Jan 01 2024 1:57P Dictated by : ELIZABETH GEORGE MD This examination was interpreted and the report reviewed and electronically signed by: ELIZABETH GEORGE MD on Jan 01 2024 1:58PM [facility] DIVISION OF RADIOLOGY * * *Final Report* [...] the thoracic spine. DIVISION OF RADIOLOGY Provider, Camilla Madera - 01/01/2024 * * *Final Report* * [...] be communicated with the ordering provider via [employer] staff message by Imaging Support Services within 2 business days of report finalization. Doll Wigs Hackler: STEPAN Transcribe Date/Time: Jan 01 2024 1:57P Dictated by : ELIZABETH GEORGE MD This examination was interpreted and the report reviewed and electronically signed by: ELIZABETH GEORGE MD on Jan 01 2024 1:58PM [facility] Radiology Study observation (narrative) [facility] Jayce 12-26-2023 [facility] Telephone (INTMWS) -------- LINDA PERALTA ([id number]) 1945 F Date Time Provider Department 12/26/23 AMOS FLOYD INTMWS During your visit today, we recorded the following information about you: Kelley Rivera LPN 12/26/2023 4:23 PM Addendum Bone density completed at [facility]. View External Imaging - Bone Density [ID [id number]] Previously completed PA for prolia to be [...] 12/28/2023 11:56 AM Addendum Called Pattie at [phone]. This PA is completed with pharmacy to aileen them at [phone]. This reference number is [id number]. Called pharmacy and they report there is a PA already on file for Dr. Rey Vann covered until 05/11/24. Did start a new PA for pcp. This was reviewed over the phone and PA approved from 12/28/23 to 12/27/24. This auth number is [id number]. They will also fax approval notice too. [...] colitis [K52.831] more content not included)... Normal [facility] Dexa Bone Density Studyon Dexa Bone Density Study [facility] Imaging Services [address] [place] [address] Dexa Bone Density Study MR#: [id number] Acct: [id number] Name: LINDA PERALTA Rep #: [id number] : 1945 F 78 From: Geovanni vargas MD PCP: Dr. Amos Floyd MD Status: [facility] Study: Dexa Bone Density Study Date of Exam: 12/21/23 Exam# [id number] Ordering Dr: Amos Floyd MD [id number] STUDY: DUAL ENERGY X-RAY ABSORPTIOMETRY / DXA [...] EST , CC: Dr. 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 [facility] 12-20-2023 [facility] Telephone (ScaleXtreme) -------- LINDA PERALTA ([id number]) 1945 F Date Time Provider Department 12/20/23 [...] elevated myocardial infarction) *06/09/2023 Adrenal insufficiency ([facility]) [E27.40] 06/12/2023 Nonrheumatic aortic valve stenosis [I35.0] 06/30/2023 Nodule of lower lobe of right lung needing foll*06/08/2023 Encounter Status:Closed by NATHALY REN on 12/20/23 [facility] Jayce 12-05-2023 ELLIE Telephone (INTMWS) -------- LINDA PERALTA ([id number]) 1945 F Date Time Provider Department 12/05/23 AMOS FLOYD INTMWS During your visit today, we recorded the following information about you: EriKelley nealRAYMUNDO 12/05/2023 4:20 PM Signed PA needed for prolia. EriKelley nealRAYMUNDO 12/06/2023 12:27 PM Signed In review the prolia is already approved with her insurance from 02/20/23 to 02/20/2024 through [facility]. Will call her insurance to see if [...] This went to pharmacy benefits. LINDA PERALTA (Kelly: [id number]) - [id number] Prolia 60MG/ML syringes status: PA Request Created: December 06, 2023 Sent: December 06, 2023 Will see what their response is,may have to call for medical benefits PA coverage to review. Kelley Rivera LPN 12/06/2023 4:32 PM Signed Pt notified we are waiting for insurance to review a prior auth for the prolia Kelley Rivera LPN 12/07/2023 10:12 AM Signed Fax rec'd from [facility] regarding the prolia. They note the prescription [...] subcutaneously once every 6 months. Authorizing Provider: FLOYD, MD Miguel Roberts Janice, LPN 12/07/2023 2:42 PM Signed Called [...] Please advise patient, and cancel Rx at [facility] [place]. Amos Floyd MD 12/09/2023 12:12 PM Signed Okay. Do bone density and we'll evaluate options at her follow up in January. Torsten Vora MA 12/11/2023 9:21 AM Signed Patient notified, [...] [V999.95] 04/26/19 (more content not included)... Normal [facility] 1,25-dihydroxyvitamin D3 [Ma ss/Vol]on 11-11-2023 VIT D1,25 DIHYDROXY 63.7 pg/mL Normal 19.9-79.3 [facility] Comment on above: Order Comment: Speci men Type: BLOOD SPECIMENOrdering Facility: Alexander Gregory MD- Roach Address: [address] [place] [address] Performed By: #### 1 649-3 ####[facility] LABCLIA [id number] [address] [address] [place] Calcium.ionized [Moles/Vol]o n 11-11-2023 Calcium.ionized (Bld) [Mass/Vol] 1.30 mmol/L Normal 1.08-1.30 [facility] Comment on above: Order Comment: Speci men Type: BLOOD SPECIMENOrdering Facility: Alexander Worrell Address: [address] [place] [address] Performed By: #### 1 995-0 ####[facility] LABCLIA [id number] [address] [address] [place] Calcium.ionized adjusted to pH 7.4 (Bld) [Moles/Vol] 1.26 mmol/L Normal 1.08-1.30 [facility] Comment on above: Order Comment: Speci men Type: BLOOD SPECIMENOrdering Facility: Alexander Worrell Address: [address] [place], [place] [address] Performed By: #### 1 995-0 ####[facility] LABCLIA [id number] [place] [id number] [place] Comprehensive metabolic 2000 panelon 11-11-2023 Albumin [Mass/Vol] 3.9 g/dL Normal 3.9-4.9 [facility] Comment on above: Order Comment: Speci men Type: BLOOD SPECIMENOrdering Facility: Alexander Worrell Address: [address] [place] [address] Performed By: #### 2 777-1, 2731-8, 86560-1, 6 ####[facility] LABCLIA [id number] [place] [address] [place] ALP [Catalytic activity/Vol] 90 U/L Normal 34-123 [facility] Comment on above: Order Comment: Speci men Type: BLOOD SPECIMENOrdering Facility: Alexander Worrell Address: [address] [place], [place] [address] Performed By: #### 2 777-1, 2731-8, 34155-3, 2142-6 ####[facility] LABCLIA [id number] [address] [address] [place] ALT [Catalytic activity/Vol] 19 U/L Normal 7-38 [facility] Comment on above: Order Comment: Speci men Type: BLOOD SPECIMENOrdering Facility: Alexander Worrell Address: [address] [place] [address] Performed By: #### 2 777-1, 273-8, , 2142-07 ####[facility] [id number] [address] [address] [place] Anion gap [Moles/Vol] 12 mmol/L Normal 8-15 [facility] Comment on above: Order Comment: Speci men Type: BLOOD SPECIMENOrdering Facility: Alexander Worrell Address: [address] [place] [address] Performed By: #### 2 777-1, 273-8, , 2142-07 ####[facility] [id number] [address] [address] [place] AST [Catalytic activity/Vol] 19 U/L Normal 13-35 [facility] Comment on above: Order Comment: Speci men Type: BLOOD SPECIMENOrdering Facility: Alexander Worrell Address: [address] [place] [address] Performed By: #### 2 777-1, 273-8, , 2142-07 ####[facility] LABIA [id number] [address] [address] [place] Bilirubin [Mass/Vol] 0.7 mg/dL Normal 0.2-1.3 [facility] Comment on above: Order Comment: Speci men Type: BLOOD SPECIMENOrdering Facility: Alexander Worrell Address: [address] [place] [address] Performed By: #### 2 777-1, 273-8, , 2142-07 ####[facility] LABCLIA [id number] [address] [address] [place] Calcium [Mass/Vol] 9.1 mg/dL Normal 8.5-10.2 [facility] Comment on above: Order Comment: Speci men Type: BLOOD SPECIMENOrdering Facility: Alexander Worrell Address: [address] [place] [address] Performed By: #### 2 777-1, 8, , 2142-07 ####[facility] LABCLIA [id number] [address] [address] [place] Chloride [Moles/Vol] 110 mmol/L High 98-107 [facility] Comment on above: Order Comment: Speci men Type: BLOOD SPECIMENOrdering Facility: Alexander Worrell Address: [address] [place], [place] [address] Performed By: #### 2 777-1, 2738, , 2142-07 ####[facility] LABCLIA [id number] [address] [address] [place] CO2 [Moles/Vol] 22 mmol/L Normal 22-30 [facility] Comment on above: Order Comment: Speci men Type: BLOOD SPECIMENOrdering Facility: Alexander Worrell Address: [address] [place] [address] Performed By: #### 2 777-1, 2738, 37899-9, 2142-07 ####[facility] LABIA [id number] [address] [address] [place] Creatinine [Mass/Vol] 1.38 mg/dL High 0.58-0.96 [facility] Comment on above: Order Comment: Speci men Type: BLOOD SPECIMENOrdering Facility: Alexander Worrell Address: [address] [place] [address] Performed By: #### 2 777-1, 2731-8, 13195-4, 3-6 ####[facility] LABIA [id number] [place] [address] [place] Creatinine and Glomerular filtration rate.predicted panel (S/P/Bld) 39 mL/min/1.73m??? Low >=60 [facility] Comment on above: Order Comment: Jody fairbanks Type: BLOOD SPECIMENOrdering Facility: Alexander Worrell Address: [address] [place] [address] Result Comment: Marisabel mated Glomerular Filtration Rate [...] reflect actual GFR. Performed By: #### 2 777-1, 2731-8, 96170-4, 3-6 ####[facility] LABIA [id number] [address] [address] [place] Glucose [Mass/Vol] 68 mg/dL Low 74-99 [facility] Comment on above: Order Comment: Jody fairbanks Type: BLOOD SPECIMENOrdering Facility: Alexander Worrell Address: [address] [place], [place] [address] Result Comment: The [place] Diabetes Association (ADA) provides guidance for cutoff [...] Standards of Medical Care in Diabetes 2016, [place] [employer]. Diabetes Care. 2016.39(Suppl 1). Performed By: #### 2 777-1, 8, , 2142-07 ####[facility] LABCLIA [id number] [address] [address] [place] Potassium [Moles/Vol] 3.7 mmol/L Normal 3.7-5.1 [facility] Comment on above: Order Comment: Speci men Type: BLOOD SPECIMENOrdering Facility: Alexander Worrell Address: [address] [place] [address] Performed By: #### 2 777-1, 8, , 2142-07 ####[facility] LABCLIA [id number] [address] [address] [place] Protein [Mass/Vol] 5.9 g/dL Low 6.3-8.0 [facility] Comment on above: Order Comment: Speci men Type: BLOOD SPECIMENOrdering Facility: Alexander Worrell Address: [address] [place] [address] Performed By: #### 2 777-1, 2730-09, , 2142-07 ####[facility] LABCLIA [id number] [address] [address] [place] Sodium [Moles/Vol] 144 mmol/L Normal 136-144 [facility] Comment on above: Order Comment: Speci men Type: BLOOD SPECIMENOrdering Facility: Alexander Worrell Address: [address] [place] [address] Performed By: #### 2 777-1, 2730-09, , 2142-07 ####[facility] LABCLIA [id number] [address] [address] [place] Urea nitrogen [Mass/Vol] 36 mg/dL High 7-21 [facility] Comment on above: Order Comment: Speci men Type: BLOOD SPECIMENOrdering Facility: Alexander Worrell Address: [address] [place] [address] Performed By: #### 2 777-1, 2730-8, 09943-5, 2142-07 ####[facility] LABCLIA [id number] [place] [address] [place] Cortis SerPl-mCncon 11-11-19 Cortisol [Mass/Vol] 2.3 ug/dL Low 4.8-19.5 [facility] Comment on above: Order Comment: Speci men Type: BLOOD SPECIMENOrdering Facility: Alexander Worrell Address: [address] [place] [address] Result Comment: Prov ided reference range is from 6-10 AM sample collection time. Cortisol Reference Range: 6-10 AM = 4.8-19.5 ug/dL, 4-8 PM = 2.5-11.9 ug/dL Performed By: #### 2 777-1, 8, 62788-4, 2142-07 ####[facility] LABCLIA [id number] [place] [address] [place] PTH-Intact SerPl-mCncon - Parathyrin.intact [Mass/Vol] 113 pg/mL High 15-65 [facility] Comment on above: Order Comment: Speci men Type: BLOOD SPECIMENOrdering Facility: Alexander Worrell Address: [address] [place], [place] [address] Performed By: #### 2 777-1, 2738, 58047-0, 2142-07 ####[facility] LABCLIA [id number] [place] [address] [place] Phosphate SerPl-mCncon 11-10 Phosphate [Mass/Vol] 2.1 mg/dL Low 2.7-4.8 [facility] Comment on above: Order Comment: Speci men Type: BLOOD SPECIMENOrdering Facility: [facility] Address: [address] [place] [address] Performed By: #### 2 777-1, 2731-8, 75186-6, 2143-6 ####[facility] LABCLIA [id number] [address] STATES OF [facility] Capillary blood internationa l normalized ratio (INR)Ordered By: Basim Velasquez on 06-19-2023 INR Coag (BldC) [Relative time] 2.0 [facility] Comment on above: Critical Value > 4.0 Whole blood prothrombin time Ordered By: Basim Velasquez on 06-19-2023 PT Coag (Bld) [Time] 21.3 s 11.7-14.9 [facility] Capillary blood internationa l normalized ratio (INR)Ordered By: Basim Velasquez on 05-31-2023 INR Coag (BldC) [Relative time] 2.1 [facility] Comment on above: Critical Value > 4.0 Whole blood prothrombin time Ordered By: Basim Velasquez on 05-31-2023 PT Coag (Bld) [Time] 22.2 s 11.7-14.9 [facility] 1,25-dihydroxyvitamin D3 [Ma ss/Vol]on 05-26-2023 Interpretation and review of laboratory results Abnormal [facility] Basic metabolic 2000 panelon 05-26-2023 Anion gap [Moles/Vol] 11 mmol/L 10 - 2 0 mmol/L [facility] Calcium [Mass/Vol] 8.6 mg/dL 8.6 - 10. 3 mg/dL [facility] Chloride [Moles/Vol] 112 mmol/L High 98 - 10 7 mmol/L [facility] CO2 [Moles/Vol] 22 mmol/L 21 - 32 mmol/L [facility] Creatinine [Mass/Vol] 1.60 mg/dL High 0.50 - 1.05 mg/dL [facility] GFR/1.73 sq M.predicted among non-blacks MDRD (S/P/Bld) [Vol rate/Area] 32 mL/min/{1.73_m2} Low - PINF [facility] Comment on above: Calculations of marisabel mated GFR are performed using the 2020 CKD-EPI Study Refit equation without the race variable for the IDMS-Traceable creatinine methods. https://jasn.asnjournals.org/content//ASN.40735 [address] Glucose [Mass/Vol] 84 mg/dL 74 - 99 mg/dL [facility] Interpretation and review of laboratory results Abnormal [facility] Potassium [Moles/Vol] 4.3 mmol/L 3.5 - 5.3 mmol/L [facility] Sodium [Moles/Vol] 141 mmol/L 136 - 145 mmol/L [facility] Urea nitrogen [Mass/Vol] 25 mg/dL High 6 - 23 mg/dL [facility] Anion gap [Moles/Vol] 11 mmol/L Normal 10-20 [facility] Comment on above: Performed By: #### 1 994-3 #### THELMA DENNISON ([id number]) [facility] ([facility]) [address] [place] [address] Calcium [Mass/Vol] 8.6 mg/dL Normal 8.6-10.3 [facility] Comment on above: Performed By: #### 1 994-3 #### AURELIAIBLIBRADO DENNISON ([id number]) [facility]) [address] [place] [address] Chloride [Moles/Vol] 112 mmol/L High 98-107 [facility] Comment on above: Performed By: #### 1 994-3 #### AURELIAIBLIBRADO MONGE RIO ORTEGA ([id number]) [facility] ([facility]) [address] [place] [address] CO2 [Moles/Vol] 22 mmol/L Normal 21-32 [facility] Comment on above: Performed By: #### 1 994-3 #### AURELIAIBLIBRADO DENNISON ([id number]) [facility]) [address] [place] [address] Creatinine [Mass/Vol] 1.60 mg/dL High 0.50-1.05 [facility] Comment on above: Performed By: #### 1 994-3 #### THELMA DENNISON ([id number]) [facility]) [address] [place], [place] [address] 67975 Glomerular filtration rate/1.73 sq M.predicted 32 mL/min/1.73m*2 Low >60 [facility] Comment on above: Result Comment: Calc ulations of estimated GFR are performed using the 2020 CKD-EPI Study Refit equation without the race variable for the IDMS-Traceable creatinine methods. https://jasn.asnjournals.org/content/early//ASN.31111 33029 Performed By: #### 1 994-3 #### THELMA DENNISON ([id number]) [facility] ([facility]) [address] [place] [address] 97913 Glucose [Mass/Vol] 84 mg/dL Normal 74-99 [facility] Comment on above: Performed By: #### 1 994-3 #### THELMA DENNISON ([id number]) [facility] ([facility]) [address] [place] [address] 15745 Potassium [Moles/Vol] 4.3 mmol/L Normal 3.5-5.3 [facility] Comment on above: Performed By: #### 1 994-3 #### THELMA DENNISON ([id number]) [facility] ([facility]) [address] [place] [address] 03639 Sodium [Moles/Vol] 141 mmol/L Normal 136-145 [facility] Comment on above: Performed By: #### 1 994-3 #### THELMA DENNISON ([id number]) [facility] ([facility]) [address] [place] [address] 35498 Urea nitrogen [Mass/Vol] 25 mg/dL High 6-23 [facility] Comment on above: Performed By: #### 1 994-3 #### THELMA DENNISON ([id number]) [facility] ([facility]) [address] [place] [address] 61953 CBC panel Auto (Bld)on 05-25 Erythrocyte distribution width (RBC) [Ratio] 14.5 % 11.5 - 14.5 % [facility] Hematocrit (Bld) [Volume fraction] 41.0 % 36.0 - 46.0 % [facility] Hemoglobin (Bld) [Mass/Vol] 13.4 g/dL 12.0 - 16.0 g/dL [facility] Interpretation and review of laboratory results Abnormal [facility] MCH (RBC) [Entitic mass] 29.4 pg 26.0 - 34.0 pg [facility] MCHC (RBC) [Mass/Vol] 32.7 g/dL 32.0 - 36.0 g/dL [facility] MCV (RBC) [Entitic vol] 90 fL 80 - 100 fL [facility] Nucleated RBC/100 WBC (Bld) [Ratio] 0.0 % [facility] Platelets (Bld) [#/Vol] 251 10*3/uL [facility] RBC (Bld) [#/Vol] 4.56 10*6/uL [facility] WBC (Bld) [#/Vol] 12.9 10*3/uL High [facility] Erythrocyte distribution width (RBC) [Ratio] 14.5 % Normal 11.5-14.5 [facility] Comment on above: Performed By: #### 3 4529-8 #### THELMA DENNISON ([id number]) [facility] ([facility]) [address] [place] [address] Hematocrit (Bld) [Volume fraction] 41.0 % Normal 36.0-46.0 [facility] Comment on above: Performed By: #### 3 4529-8 #### THELMA DENNISON ([id number]) [facility] ([facility]) [address] [place] [address] 19446 Hemoglobin (Bld) [Mass/Vol] 13.4 g/dL Normal 12.0-16.0 [facility] Comment on above: Performed By: #### 3 4529-8 #### THELMA DENNISON ([id number]) [facility] ([facility]) [address] [place] [address] 96784 MCH (RBC) [Entitic mass] 29.4 pg Normal 26.0-34.0 [facility] Comment on above: Performed By: #### 3 4529-8 #### THELMA DENNISON ([id number]) [facility] ([facility]) [address] [place] [address] 01593 MCHC (RBC) [Mass/Vol] 32.7 g/dL Normal 32.0-36.0 [facility] Comment on above: Performed By: #### 3 4529-8 #### THELMA DENNISON ([id number]) [facility] ([facility]) [address] [place] [address] 83141 MCV (RBC) [Entitic vol] 90 fL Normal 80-100 [facility] Comment on above: Performed By: #### 3 4529-8 #### THELMA DENNISON ([id number]) [facility] ([facility]) [address] [place] [address] 11943 Nucleated RBC/100 WBC (Bld) [Ratio] 0.0 /100 WBCs Normal 0.0-0.0 [facility] Comment on above: Performed By: #### 3 4529-8 #### THELMA DENNISON ([id number]) [facility] ([facility]) [address] [place] [address] 54234 Platelets (Bld) [#/Vol] 251 x10*3/uL Normal 150-450 [facility] Comment on above: Performed By: #### 3 4529-8 #### THELMA DENNISON ([id number]) [facility] ([facility]) [address] [place] [address] 43547 RBC (Bld) [#/Vol] 4.56 x10*6/uL Normal 4.00-5.20 [facility] Comment on above: Performed By: #### 3 4529-8 #### THELMA DENNISON ([id number]) [facility] ([facility]) [address] [place] [address] WBC (Bld) [#/Vol] 12.9 x10*3/uL High 4.4-11.3 [facility] Comment on above: Performed By: #### 3 4529-8 #### THELMA DENNISON ([id number]) [facility] ([facility]) [address] [place] [address] 21965 Coagulation tissue factor in ducedon 05-26-2023 PT Coag (PPP) [Time] 22.7 s High 9.8-12.8 [facility] Comment on above: Performed By: #### 3 4529-8 #### THELMA DENNISON ([id number]) [facility] ([facility]) [address] [place] [address] 76226 No Panel Informationon 05-25 Extra Tube Hold for add-ons. [facility] Comment on above: Auto resulted. [facility] PT Coag (PPP) [Time]on 05-25 INR Coag (PPP) [Relative time] 2.0 High 0.9-1.1 [facility] Comment on above: Performed By: #### 3 4529-8 #### THELMA DENNISON ([id number]) [facility] ([facility]) [address] [place] [address] 64009 INR Coag (PPP) [Relative time] 2.0 {INR} High 0.9 - 1.1 [facility] Interpretation and review of laboratory results Abnormal [facility] Protime-INRon 05-26-2023 PT Coag (PPP) [Time] 22.7 s High [facility] Vitamin D 1,25 Dihydroxy (fo r eval of hypercalcemia)on 04-05-2024 1,25-dihydroxyvitamin D3 [Mass/Vol] 179.0 pg/mL High 19.9 - 79.3 pg/mL [facility] Comment on above: INTERPRETIVE INFORMA TION: Vitamin D, 1,25-Dihydroxy This test is primarily indicated during patient evaluation for hypercalcemia and renal failure. A normal result does not rule out Vitamin D deficiency. The recommended test for diagnosing Vitamin D deficiency is Vitamin D 25-hydroxy. Performed By: [employer] [address] [place] [address] [id number] Tape Coater: Jefferson Kerr MD, PhD CLIA Number: [id number] 25-hydroxyvitamin D3 [Mass/V ol]on 05-25-2023 Interpretation and review of laboratory results Normal [facility] Deficiency: < 20 ng/ ml Insufficiency: 20-29 ng/ml Sufficiency: 30-100 ng/ml This assay accurately quantifies the sum of Vitamin D3, 25-Hydroxy and Vitamin D2,25-Hydroxy. [facility] Basic metabolic 2000 panelon 05-25-2023 Anion gap [Moles/Vol] 11 mmol/L Normal 10-20 [facility] Comment on above: Performed By: #### 3 4529-8 #### THELMA DENNISON ([id number]) [facility] ([facility]) [address] [place] [address] 65966 Calcium [Mass/Vol] 9.9 mg/dL Normal 8.6-10.3 [facility] Comment on above: Performed By: #### 3 4529-8 #### THELMA DENNISON ([id number]) [facility] ([facility]) [address] [place] [address] Chloride [Moles/Vol] 109 mmol/L High 98-107 [facility] Comment on above: Performed By: #### 3 4529-8 #### THELMA DENNISON ([id number]) [facility] ([facility]) [address] [place] [address] 48042 CO2 [Moles/Vol] 23 mmol/L Normal 21-32 [facility] Comment on above: Performed By: #### 3 4529-8 #### AURELIAIBLIBRADO NOEMI ORTEGA ([id number]) [facility] ([facility]) [address] [place] [address] Creatinine [Mass/Vol] 1.80 mg/dL High 0.50-1.05 [facility] Comment on above: Performed By: #### 3 4529-8 #### AURELIAIBLIBRADO NOEMI ORTEGA ([id number]) [facility] ([facility]) [address] [place] [address] 21312 Glomerular filtration rate/1.73 sq M.predicted 28 mL/min/1.73m*2 Low >60 [facility] Comment on above: Result Comment: Calc ulations of estimated GFR are performed using the 2020 CKD-EPI Study Refit equation without the race variable for the IDMS-Traceable creatinine methods. https://jasn.asnjournals.org/content//ASN.65749 61684 Performed By: #### 3 4529-8 #### THELMA NOEMI ORTEGA ([id number]) [facility] ([facility]) [address] [place] [address] 70329 Glucose [Mass/Vol] 135 mg/dL High 74-99 [facility] Comment on above: Performed By: #### 3 4529-8 #### THELMA NOEMI ORTEGA ([id number]) [facility] ([facility]) [address] [place] [address] 63481 Potassium [Moles/Vol] 3.7 mmol/L Normal 3.5-5.3 [facility] Comment on above: Performed By: #### 3 4529-8 #### ANAIBELIMARILIN NOEMI ORTEGA ([id number]) [facility] ([facility]) [address] [place] [address] 88532 Sodium [Moles/Vol] 139 mmol/L Normal 136-145 [facility] Comment on above: Performed By: #### 3 4529-8 #### AURELIAIBLIBRADO NOEMI ORTEGA ([id number]) [facility] ([facility]) [address] [place] [address] 15134 Urea nitrogen [Mass/Vol] 33 mg/dL High 6-23 [facility] Comment on above: Performed By: #### 3 4529-8 #### THELMA DENNISON ([id number]) [facility] ([facility]) [address] [place] [address] Anion gap [Moles/Vol] 11 mmol/L 10 - 2 0 mmol/L [facility] Calcium [Mass/Vol] 9.9 mg/dL 8.6 - 10. 3 mg/dL [facility] Chloride [Moles/Vol] 109 mmol/L High 98 - 10 7 mmol/L [facility] CO2 [Moles/Vol] 23 mmol/L 21 - 32 mmol/L [facility] Creatinine [Mass/Vol] 1.80 mg/dL High 0.50 - 1.05 mg/dL [facility] GFR/1.73 sq M.predicted among non-blacks MDRD (S/P/Bld) [Vol rate/Area] 28 mL/min/{1.73_m2} Low - PINF [facility] Comment on above: Calculations of marisabel mated GFR are performed using the 2020 CKD-EPI Study Refit equation without the race variable for the IDMS-Traceable creatinine methods. https://jasn.asnjournals.org/content/early//ASN.77038 40179 Glucose [Mass/Vol] 135 mg/dL High 74 - 99 mg/dL [facility] Interpretation and review of laboratory results Abnormal [facility] Potassium [Moles/Vol] 3.7 mmol/L 3.5 - 5.3 mmol/L [facility] Sodium [Moles/Vol] 139 mmol/L 136 - 145 mmol/L [facility] Urea nitrogen [Mass/Vol] 33 mg/dL High 6 - 23 mg/dL [facility] Calcidiolon 05-25-2023 25-hydroxyvitamin D3 [Mass/Vol] 45 ng/mL Normal 30-100 [facility] Comment on above: Order Comment: The A PTT is no longer used for monitoring Unfractionated Heparin Therapy. For monitoring Heparin Therapy, use the Heparin Assay. Performed By: #### 3 4529-8 #### THELMA DENNISON ([id number]) [facility] ([facility]) [address] [place] [address] 11467 Calcium, ionizedon Calcium.ionized (Bld) [Moles/Vol] 1.32 mmol/L 1.1 - 1.33 mmol/L [facility] Comment on above: The performance domi acteristics of ionized calcium tested in heparinized plasma or serum have been validated by the individual laboratory site where testing is performed. Testing on heparinized plasma or serum is not approved by the FDA; however, such approval is not necessary. Calcium.ionizedon 05-25-2023 Calcium.ionized (Bld) [Moles/Vol] 1.32 mmol/L Normal 1.1-1.33 [facility] Comment on above: Result Comment: The performance characteristics of ionized calcium tested in heparinized plasma or serum have been validated by the individual laboratory site where testing is performed. Testing on heparinized plasma or serum is not approved by the FDA; however, such approval is not necessary. Performed By: #### 3 4529-8 #### THELMA DENNISON ([id number]) [facility] ([facility] [address] [place] [address] 80155 Calcium.ionized (Bld) [Moles /Vol]on 05-25-2023 Interpretation and review of laboratory results Normal [facility] Coagulation tissue factor in ducedon 05-25-2023 PT Coag (PPP) [Time] 23.0 s High 9.8-12.8 [facility] Comment on above: Performed By: #### 3 4529-8 #### THELMA DENNISON ([id number]) [facility] ([facility] [address] [place] [address] 95196 HbA1c (Bld) [Mass fraction]o n 05-25-2023 Average glucose Estimated from glycated hemoglobin (Bld) [Mass/Vol] 105 mg/dL Not Established [facility] Diagnosis of Diabetes-Adults Non-Diabetic: < or = 5.6% Increased risk for developing diabetes: 5.7-6.4% Diagnostic of diabetes: > or = 6.5% Monitoring of Diabetes Age (y)..................... .. Therapeutic Goal (%) Adults: >18..................... ....<7.0 Pediatrics: 13-18................... <7.5 Pediatrics: 7-12.................... <8.0 Pediatrics: 0-6..................... 7.5-8.5 [place] [employer]. Diabetes Care 33(S1), Feb 2009 [facility] Average glucose Estimated from glycated hemoglobin (Bld) [Mass/Vol] 105 mg/dL Normal Not Established [facility] Comment on above: Order Comment: The A PTT is no longer used for monitoring Unfractionated Heparin Therapy. For monitoring Heparin Therapy, use the Heparin Assay. Performed By: #### 3 4529-8 #### THELMA DENNISON ([id number]) [facility] ([facility]) [address] [place] [address] Hemoglobin A1Con 05-25-2023 HbA1c (Bld) [Mass fraction] 5.3 % see below [facility] Hemoglobin A1c/Hemoglobin.to gage 05-25-2023 HbA1c (Bld) [Mass fraction] 5.3 % Normal see below [facility] Comment on above: Order Comment: The A PTT is no longer used for monitoring Unfractionated Heparin Therapy. For monitoring Heparin Therapy, use the Heparin Assay. Performed By: #### 3 4529-8 #### THELMA DENNISON ([id number]) [facility] ([facility]) [address] [place] [address] No Panel Informationon 05-24 Extra Tube Hold for add-ons. [facility] Comment on above: Auto resulted. [facility] PT Coag (PPP) [Time]on 05-24 INR Coag (PPP) [Relative time] 2.0 High 0.9-1.1 [facility] Comment on above: Performed By: #### 3 4529-8 #### THELMA DENNISON ([id number]) [facility] ([facility]) [address] [place] [address] 31349 INR Coag (PPP) [Relative time] 2.0 {INR} High 0.9 - 1.1 [facility] Interpretation and review of laboratory results Abnormal [facility] PTH, Intacton 05-25-2023 Parathyrin.intact [Mass/Vol] 16.3 pg/mL Low 18.5 - 88.0 pg/mL [facility] Parathyrin related proteinon 05-25-2023 Parathyrin related protein [Moles/Vol] 1.1 pmol/L Normal < or = 4.2 [facility] Comment on above: Result Comment: ADDITIONAL INFORMATION This test was developed and its performance characteristics determined by [facility] in a manner consistent with CLIA requirements. This test has not been cleared or approved by the U.S. Food and Drug Administration. Test Performed by: [facility] [place] [address] Speech Writer: Sunny Triplett M.D. Ph.D.; CLIA# [id number] Performed By: #### 1 994-3 #### THELMA DENNISON ([id number]) [facility] ([facility]) [address] [place] [address] 76093 Parathyrin.intacton 05-25-19 Parathyrin.intact [Mass/Vol] 16.3 pg/mL Low 18.5-88.0 [facility] Comment on above: Performed By: #### 3 4529-8 #### THELMA DENNISON ([id number]) [facility] ([facility]) [address] [place] [address] 39935 Parathyrin.intact [Mass/Vol] on 05-25-2023 Interpretation and review of laboratory results Abnormal [facility] Phosphateon 05-25-2023 Phosphate [Mass/Vol] 3.2 mg/dL Normal 2.5-4.9 [facility] Comment on above: Result Comment: The performance characteristics of phosphorus testing in heparinized plasma have been validated by the individual laboratory site where testing is performed. Testing on heparinized plasma is not approved by the FDA; however, such approval is not necessary. Performed By: #### 3 4529-8 #### THELMA DENNISON ([id number]) [facility] ([facility]) [address] [place] [address] Phosphate [Mass/Vol]on 05-24 Interpretation and review of laboratory results Normal [facility] Phosphoruson 05-25-2023 Phosphate [Mass/Vol] 3.2 mg/dL 2.5 - 4 .9 mg/dL [facility] Comment on above: The performance domi acteristics of phosphorus testing in heparinized plasma have been validated by the individual laboratory site where testing is performed. Testing on heparinized plasma is not approved by the FDA; however, such approval is not necessary. Protime-INRon 05-25-2023 PT Coag (PPP) [Time] 23.0 s [facility] Vitamin D 25-Hydroxy,Total ( for eval of Vitamin D levels)on 05-25-2023 25-hydroxyvitamin D3 [Mass/Vol] 45 ng/mL 30 - 100 ng/mL [facility] CBC W Auto Differential pane l (Bld)on 05-24-2023 Basophils (Bld) [#/Vol] 0.06 x10*3/uL Normal 0.00-0.10 [facility] Comment on above: Performed By: #### 5 7021-8 #### THELMA DENNISON ([id number]) [facility] ([facility]) [address] [place] [address] Basophils/100 WBC (Bld) 0.6 % Normal 0.0-2.0 [facility] Comment on above: Performed By: #### 5 7021-8 #### THELMA DENNISON ([id number]) [facility] ([facility]) [address] [place] [address] 16305 Eosinophils (Bld) [#/Vol] 1.08 x10*3/uL High 0.00-0.40 [facility] Comment on above: Performed By: #### 5 7021-8 #### THELMA DENNISON ([id number]) [facility] ([facility]) [address] [place] [address] 70237 Eosinophils/100 WBC (Bld) 11.2 % Normal 0.0-6.0 [facility] Comment on above: Performed By: #### 5 7021-8 #### THELMA DENNISON ([id number]) [facility] ([facility]) [address] [place] [address] 98948 Erythrocyte distribution width (RBC) [Ratio] 14.2 % Normal 11.5-14.5 [facility] Comment on above: Performed By: #### 5 7021-8 #### THELMA DENNISON ([id number]) [facility] ([facility]) [address] [place] [address] 93713 Hematocrit (Bld) [Volume fraction] 39.8 % Normal 36.0-46.0 [facility] Comment on above: Performed By: #### 5 7021-8 #### THELMA DENNISON ([id number]) [facility] ([facility]) [address] [place] [address] 81048 Hemoglobin (Bld) [Mass/Vol] 13.5 g/dL Normal 12.0-16.0 [facility] Comment on above: Performed By: #### 5 7021-8 #### THELMA DENNISON ([id number]) [facility] ([facility]) [address] [place] [address] 48649 Immature granulocytes (Bld) [#/Vol] 0.09 x10*3/uL Normal 0.00-0.50 [facility] Comment on above: Performed By: #### 5 7021-8 #### THELMA DENNISON ([id number]) [facility] ([facility]) [address] [place] [address] 87404 Immature granulocytes/100 WBC (Bld) 0.9 % Normal 0.0-0.9 [facility] Comment on above: Result Comment: Linda ture Granulocyte Count (IG) includes promyelocytes, myelocytes and metamyelocytes but does not include bands. Percent differential counts (%) should be interpreted in the context of the absolute cell counts (cells/UL). Performed By: #### 5 7021-8 #### THELMA DENNISON ([id number]) [facility] ([facility]) [address] [place] [address] 17481 Lymphocytes (Bld) [#/Vol] 1.90 x10*3/uL Normal 0.80-3.00 [facility] Comment on above: Performed By: #### 5 7021-8 #### THELMA DENNISON ([id number]) [facility] ([facility]) [address] [place] [address] 72478 Lymphocytes/100 WBC (Bld) 19.8 % Normal 13.0-44.0 [facility] Comment on above: Performed By: #### 5 7021-8 #### THELMA DENNISON ([id number]) [facility] ([facility]) [address] [place] [address] 06506 MCH (RBC) [Entitic mass] 29.3 pg Normal 26.0-34.0 [facility] Comment on above: Performed By: #### 5 7021-8 #### THELMA DENNISON ([id number]) [facility] ([facility]) [address] [place] [address] 11640 MCHC (RBC) [Mass/Vol] 33.9 g/dL Normal 32.0-36.0 [facility] Comment on above: Performed By: #### 5 7021-8 #### THELMA DENNISON ([id number]) [facility] ([facility]) [address] [place] [address] 45008 MCV (RBC) [Entitic vol] 86 fL Normal 80-100 [facility] Comment on above: Performed By: #### 5 7021-8 #### THELMA DENNISON ([id number]) [facility] ([facility]) [address] [place] [address] 13316 Monocytes (Bld) [#/Vol] 0.96 x10*3/uL High 0.05-0.80 [facility] Comment on above: Performed By: #### 5 7021-8 #### THELMA DENNISON ([id number]) [facility] ([facility]) [address] [place] [address] 18293 Monocytes/100 WBC (Bld) 10.0 % Normal 2.0-10.0 [facility] Comment on above: Performed By: #### 5 7021-8 #### THELMA DENNISON ([id number]) [facility] ([facility]) [address] [place] [address] 60539 Neutrophils (Bld) [#/Vol] 5.52 x10*3/uL High 1.60-5.50 [facility] Comment on above: Result Comment: Perc ent differential counts (%) should be interpreted in the context of the absolute cell counts (cells/uL). Performed By: #### 5 7021-8 #### THELMA DENNISON ([id number]) [facility] ([facility]) [address] [place] [address] 67581 Neutrophils/100 WBC (Bld) 57.5 % Normal 40.0-80.0 [facility] Comment on above: Performed By: #### 5 7021-8 #### THELMA DENNISON ([id number]) [facility] ([facility]) [address] [place] [address] 90071 Nucleated RBC/100 WBC (Bld) [Ratio] 0.0 /100 WBCs Normal 0.0-0.0 [facility] Comment on above: Performed By: #### 5 7021-8 #### THELMA DENNISON ([id number]) [facility] ([facility]) [address] [place] [address] 54991 Platelets (Bld) [#/Vol] 249 x10*3/uL Normal 150-450 [facility] Comment on above: Performed By: #### 5 7021-8 #### THELMA DENNISON ([id number]) [facility] ([facility]) [address] [place] [address] 00784 RBC (Bld) [#/Vol] 4.61 x10*6/uL Normal 4.00-5.20 [facility] Comment on above: Performed By: #### 5 7021-8 #### THELMA DENNISON ([id number]) [facility] ([facility]) [address] [place] [address] 94359 WBC (Bld) [#/Vol] 9.6 x10*3/uL Normal 4.4-11.3 [facility] Comment on above: Performed By: #### 5 7021-8 #### THELMA DENNISON ([id number]) [facility] ([facility]) [address] [place] [address] 14095 Basophils (Bld) [#/Vol] 0.06 10*3/uL [facility] Basophils/100 WBC (Bld) 0.6 % 0.0 - 2.0 % [facility] Eosinophils (Bld) [#/Vol] 1.08 10*3/uL High [facility] Eosinophils/100 WBC (Bld) 11.2 % 0.0 - 6.0 % [facility] Erythrocyte distribution width (RBC) [Ratio] 14.2 % 11.5 - 14.5 % [facility] Hematocrit (Bld) [Volume fraction] 39.8 % 36.0 - 46.0 % [facility] Hemoglobin (Bld) [Mass/Vol] 13.5 g/dL 12.0 - 16.0 g/dL [facility] Immature granulocytes (Bld) [#/Vol] 0.09 10*3/uL [facility] Immature granulocytes/100 WBC (Bld) 0.9 % 0.0 - 0.9 % [facility] Comment on above: Immature Granulocyte Count (IG) includes promyelocytes, myelocytes and metamyelocytes but does not include bands. Percent differential counts (%) should be interpreted in the context of the absolute cell counts (cells/UL). Interpretation and review of laboratory results Abnormal [facility] Lymphocytes (Bld) [#/Vol] 1.90 10*3/uL [facility] Lymphocytes/100 WBC (Bld) 19.8 % 13.0 - 44.0 % [facility] MCH (RBC) [Entitic mass] 29.3 pg 26.0 - 34.0 pg [facility] MCHC (RBC) [Mass/Vol] 33.9 g/dL 32.0 - 36.0 g/dL [facility] MCV (RBC) [Entitic vol] 86 fL 80 - 100 fL [facility] Monocytes (Bld) [#/Vol] 0.96 10*3/uL [facility] Monocytes/100 WBC (Bld) 10.0 % 2.0 - 10.0 % [facility] Neutrophils (Bld) [#/Vol] 5.52 10*3/uL High [facility] Comment on above: Percent differential counts (%) should be interpreted in the context of the absolute cell counts (cells/uL). Neutrophils/100 WBC (Bld) 57.5 % 40.0 - 80.0 % [facility] [facility] Nucleated RBC/100 WBC (Bld) [Ratio] 0.0 % [facility] Platelets (Bld) [#/Vol] 249 10*3/uL [facility] RBC (Bld) [#/Vol] 4.61 10*6/uL [facility] WBC (Bld) [#/Vol] 9.6 10*3/uL [facility] Basophils (Bld) [#/Vol] 0.07 x10*3/uL Normal 0.00-0.10 [facility] Comment on above: Performed By: #### 5 7021-8 #### THELMA DENNISON ([id number]) [facility] ([facility]) [address] [place] [address] 30024 Basophils/100 WBC (Bld) 0.8 % Normal 0.0-2.0 [facility] Comment on above: Performed By: #### 5 7021-8 #### THELMA DENNISON ([id number]) [facility] ([facility]) [address] [place] [address] 86920 Eosinophils (Bld) [#/Vol] 1.09 x10*3/uL High 0.00-0.40 [facility] Comment on above: Performed By: #### 5 7021-8 #### THELMA DENNISON ([id number]) [facility] ([facility]) [address] [place] [address] Eosinophils/100 WBC (Bld) 12.0 % Normal 0.0-6.0 [facility] Comment on above: Performed By: #### 5 7021-8 #### THELMA DENNISON ([id number]) [facility] (C) [address] [place] [address] Erythrocyte distribution width (RBC) [Ratio] 14.1 % Normal 11.5-14.5 [facility] Comment on above: Performed By: #### 5 7021-8 #### THELMA DENNISON ([id number]) [facility] ([facility]) [address] [place] [address] 59061 Hematocrit (Bld) [Volume fraction] 41.4 % Normal 36.0-46.0 [facility] Comment on above: Performed By: #### 5 7021-8 #### THELMA DENNISON ([id number]) [facility] ([facility]) [address] [place] [address] 12565 Hemoglobin (Bld) [Mass/Vol] 14.1 g/dL Normal 12.0-16.0 [facility] Comment on above: Performed By: #### 5 7021-8 #### THELMA DENNISON ([id number]) [facility] ([facility]) [address] [place] [address] 87445 Immature granulocytes (Bld) [#/Vol] 0.12 x10*3/uL Normal 0.00-0.50 [facility] Comment on above: Performed By: #### 5 7021-8 #### THELMA DENNISON ([id number]) [facility] ([facility]) [address] [place] [address] 80849 Immature granulocytes/100 WBC (Bld) 1.3 % High 0.0-0.9 [facility] Comment on above: Result Comment: Linda ture Granulocyte Count (IG) includes promyelocytes, myelocytes and metamyelocytes but does not include bands. Percent differential counts (%) should be interpreted in the context of the absolute cell counts (cells/UL). Performed By: #### 5 7021-8 #### THELMA DENNISON ([id number]) [facility] ([facility]) [address] [place] [address] 03687 Lymphocytes (Bld) [#/Vol] 1.88 x10*3/uL Normal 0.80-3.00 [facility] Comment on above: Performed By: #### 5 7021-8 #### THELMA DENNISON ([id number]) [facility] ([facility]) [address] [place] [address] 51618 Lymphocytes/100 WBC (Bld) 20.7 % Normal 13.0-44.0 [facility] Comment on above: Performed By: #### 5 7021-8 #### THELMA DENNISON ([id number]) [facility] ([facility]) [address] [place] [address] 52812 MCH (RBC) [Entitic mass] 29.4 pg Normal 26.0-34.0 [facility] Comment on above: Performed By: #### 5 7021-8 #### THELMA DENNISON ([id number]) [facility] ([facility]) [address] [place] [address] 89976 MCHC (RBC) [Mass/Vol] 34.1 g/dL Normal 32.0-36.0 [facility] Comment on above: Performed By: #### 5 7021-8 #### HTELMA DENNISON ([id number]) [facility] ([facility]) [address] [place] [address] 52976 MCV (RBC) [Entitic vol] 86 fL Normal 80-100 [facility] Comment on above: Performed By: #### 5 7021-8 #### THELMA DENNISON ([id number]) [facility] ([facility]) [address] [place] [address] 22008 Monocytes (Bld) [#/Vol] 0.87 x10*3/uL High 0.05-0.80 [facility] Comment on above: Performed By: #### 5 7021-8 #### THELMA DENNISON ([id number]) [facility] ([facility] [address] [place] [address] 87003 Monocytes/100 WBC (Bld) 9.6 % Normal 2.0-10.0 [facility] Comment on above: Performed By: #### 5 7021-8 #### THELMA DENNISON ([id number]) [facility] ([facility]) [address] [place] [address] 14474 Neutrophils (Bld) [#/Vol] 5.05 x10*3/uL Normal 1.60-5.50 [facility] Comment on above: Result Comment: Perc ent differential counts (%) should be interpreted in the context of the absolute cell counts (cells/uL). Performed By: #### 5 7021-8 #### THELMA DENNISON ([id number]) [facility] ([facility]) [address] [place] [address] 18180 Neutrophils/100 WBC (Bld) 55.6 % Normal 40.0-80.0 [facility] Comment on above: Performed By: #### 5 7021-8 #### THELMA DENNISON ([id number]) [facility] ([facility]) [address] [place] [address] 02534 Nucleated RBC/100 WBC (Bld) [Ratio] 0.0 /100 WBCs Normal 0.0-0.0 [facility] Comment on above: Performed By: #### 5 7021-8 #### THELMA DENNISON ([id number]) [facility] ([facility]) [address] [place] [address] 71478 Platelets (Bld) [#/Vol] 240 x10*3/uL Normal 150-450 [facility] Comment on above: Performed By: #### 5 7021-8 #### THELMA DENNISON ([id number]) [facility] ([facility]) [address] [place] [address] 35645 RBC (Bld) [#/Vol] 4.80 x10*6/uL Normal 4.00-5.20 [facility] Comment on above: Performed By: #### 5 7021-8 #### THELMA DENNISON ([id number]) [facility] ([facility]) [address] [place] [address] 33159 WBC (Bld) [#/Vol] 9.1 x10*3/uL Normal 4.4-11.3 [facility] Comment on above: Performed By: #### 5 7021-8 #### THELMA DENNISON ([id number]) [facility] ([facility]) [address] [place] [address] 92004 Basophils (Bld) [#/Vol] 0.07 10*3/uL [facility] Basophils/100 WBC (Bld) 0.8 % 0.0 - 2.0 % [facility] Eosinophils (Bld) [#/Vol] 1.09 10*3/uL High [facility] Eosinophils/100 WBC (Bld) 12.0 % 0.0 - 6.0 % [facility] Erythrocyte distribution width (RBC) [Ratio] 14.1 % 11.5 - 14.5 % [facility] Hematocrit (Bld) [Volume fraction] 41.4 % 36.0 - 46.0 % [facility] Hemoglobin (Bld) [Mass/Vol] 14.1 g/dL 12.0 - 16.0 g/dL [facility] Immature granulocytes (Bld) [#/Vol] 0.12 10*3/uL [facility] Immature granulocytes/100 WBC (Bld) 1.3 % High 0.0 - 0.9 % [facility] Comment on above: Immature Granulocyte Count (IG) includes promyelocytes, myelocytes and metamyelocytes but does not include bands. Percent differential counts (%) should be interpreted in the context of the absolute cell counts (cells/UL). Interpretation and review of laboratory results Abnormal [facility] Lymphocytes (Bld) [#/Vol] 1.88 10*3/uL [facility] Lymphocytes/100 WBC (Bld) 20.7 % 13.0 - 44.0 % [facility] MCH (RBC) [Entitic mass] 29.4 pg 26.0 - 34.0 pg [facility] MCHC (RBC) [Mass/Vol] 34.1 g/dL 32.0 - 36.0 g/dL [facility] MCV (RBC) [Entitic vol] 86 fL 80 - 100 fL [facility] Monocytes (Bld) [#/Vol] 0.87 10*3/uL High [facility] Monocytes/100 WBC (Bld) 9.6 % 2.0 - 10.0 % [facility] Neutrophils (Bld) [#/Vol] 5.05 10*3/uL [facility] Comment on above: Percent differential counts (%) should be interpreted in the context of the absolute cell counts (cells/uL). Neutrophils/100 WBC (Bld) 55.6 % 40.0 - 80.0 % [facility] Nucleated RBC/100 WBC (Bld) [Ratio] 0.0 % [facility] Platelets (Bld) [#/Vol] 240 10*3/uL [facility] RBC (Bld) [#/Vol] 4.80 10*6/uL [facility] WBC (Bld) [#/Vol] 9.1 10*3/uL [facility] Calcitriolon 05-24-2023 1,25-dihydroxyvitamin D3 [Mass/Vol] 179.0 pg/mL High 19.9-79.3 [facility] Comment on above: Result Comment: INTE RPRETIVE INFORMATION: Vitamin D, 1,25-Dihydroxy This test is primarily indicated during patient evaluation for hypercalcemia and renal failure. A normal result does not rule out Vitamin D deficiency. The recommended test for diagnosing Vitamin D deficiency is Vitamin D 25-hydroxy. Performed By: [employer] [address] [place] [address] 78334 T[employer] Coater: Jefferson Kerr MD, PhD [place] Number: [id number] Performed By: #### 3 4529-8 #### THELMA DENNISON ([id number]) [facility] ([facility]) [address] [place] [address] 30655 Calcium, ionizedon Calcium.ionized (Bld) [Moles/Vol] 1.53 mmol/L High 1.1 - 1.33 mmol/L [facility] Comment on above: The performance domi acteristics of ionized calcium tested in heparinized plasma or serum have been validated by the individual laboratory site where testing is performed. Testing on heparinized plasma or serum is not approved by the FDA; however, such approval is not necessary. Calcium.ionizedon 05-24-2023 Calcium.ionized (Bld) [Moles/Vol] 1.53 mmol/L High 1.1-1.33 [facility] Comment on above: Result Comment: The performance characteristics of ionized calcium tested in heparinized plasma or serum have been validated by the individual laboratory site where testing is performed. Testing on heparinized plasma or serum is not approved by the FDA; however, such approval is not necessary. Performed By: #### 1 994-3 #### THELMA DENNISON ([id number]) [facility] ([facility]) [address] [place] [address] 40312 Calcium.ionized (Bld) [Moles /Vol]on 05-24-2023 Interpretation and review of laboratory results Abnormal [facility] Coagulation tissue factor in ducedon 05-24-2023 PT Coag (PPP) [Time] 25.3 s High 9.8-12.8 [facility] Comment on above: Performed By: #### 5 902-2 #### THELMA DENNISON ([id number]) [facility] ([facility]) [address] [place] [address] 89973 Comprehensive metabolic 2000 panelon 05-24-2023 Albumin BCP dye [Mass/Vol] 3.1 g/dL Low 3.4-5.0 [facility] Comment on above: Performed By: #### 2 4323-8 #### THELMA DENNISON ([id number]) [facility] ([facility]) [address] [place] [address] 47604 ALP [Catalytic activity/Vol] 47 U/L Normal 33-136 [facility] Comment on above: Performed By: #### 2 4323-8 #### AURELIAIBLIBRADO DENNISON ([id number]) [facility] ([facility]) [address] [place] [address] 16821 ALT With P-5'-P [Catalytic activity/Vol] 39 U/L Normal 7-45 [facility] Comment on above: Result Comment: Liz ents treated with Sulfasalazine may generate falsely decreased results for ALT. Performed By: #### 2 4323-8 #### AURELIAIBLIBRADO DENNISON ([id number]) [facility] ([facility]) [address] [place] [address] 92406 Anion gap [Moles/Vol] 11 mmol/L Normal 10-20 [facility] Comment on above: Performed By: #### 2 4323-8 #### AURELIAIBLIBRADO DENNISON ([id number]) [facility] ([facility]) [address] [place] [address] 29722 AST With P-5'-P [Catalytic activity/Vol] 45 U/L High 9-39 [facility] Comment on above: Performed By: #### 2 4323-8 #### AURELIAIBLIBRADO DENNISON ([id number]) [facility] ([facility]) [address] [place] [address] 06192 Bilirubin [Mass/Vol] 0.5 mg/dL Normal 0.0-1.2 [facility] Comment on above: Performed By: #### 2 4323-8 #### AURELIAIBLIBRADO DENNISON ([id number]) [facility] ([facility]) [address] [place] [address] Calcium [Mass/Vol] 11.1 mg/dL High 8.6-10.3 [facility] Comment on above: Performed By: #### 2 4323-8 #### AURELIAIBLIBRADO MONGE MAILE VIVAS ([id number]) [facility] ([facility]) [address] [place] [address] Chloride [Moles/Vol] 108 mmol/L High 98-107 [facility] Comment on above: Performed By: #### 2 4323-8 #### AURELIAIBELIMARILIN MONGENOEMI ORTEGA ([id number]) [facility] ([facility]) [address] [place] [address] 38774 CO2 [Moles/Vol] 23 mmol/L Normal 21-32 [facility] Comment on above: Performed By: #### 2 4323-8 #### AURELIAIBELIMARILIN MONGENOEMIMAILE VIVAS ([id number]) [facility] ([facility]) [address] [place] [address] 59205 Creatinine [Mass/Vol] 1.87 mg/dL High 0.50-1.05 [facility] Comment on above: Performed By: #### 2 4323-8 #### AURELIAIBLIBRADO MARIPOSA VIVAS ([id number]) [facility] ([facility]) [address] [place] [address] 93527 Glomerular filtration rate/1.73 sq M.predicted 27 mL/min/1.73m*2 Low >60 [facility] Comment on above: Result Comment: Calc ulations of estimated GFR are performed using the 2020 CKD-EPI Study Refit equation without the race variable for the IDMS-Traceable creatinine methods. https://jasn.asnjournals.org/content/early/ASN.62260 94657 Performed By: #### 2 4323-8 #### AURELIAIBLIBRADO MONGE MAILE VIVAS ([id number]) [facility] ([facility]) [address] [place] [address] 00111 Glucose [Mass/Vol] 77 mg/dL Normal 74-99 [facility] Comment on above: Performed By: #### 2 4323-8 #### THELMA DENNISON ([id number]) [facility] ([facility]) [address] [place] [address] 25814 Potassium [Moles/Vol] 3.8 mmol/L Normal 3.5-5.3 [facility] Comment on above: Performed By: #### 2 4323-8 #### THELMA DENNISON ([id number]) [facility] ([facility]) [address] [place] [address] 07239 Protein [Mass/Vol] 5.1 g/dL Low 6.4-8.2 [facility] Comment on above: Performed By: #### 2 4323-8 #### THELMA DENNISON ([id number]) [facility] ([facility]) [address] [place] [address] 67331 Sodium [Moles/Vol] 138 mmol/L Normal 136-145 [facility] Comment on above: Performed By: #### 2 4323-8 #### THELMA DENNISON ([id number]) [facility] ([facility]) [address] [place] [address] 46373 Urea nitrogen [Mass/Vol] 38 mg/dL High 6-23 [facility] Comment on above: Performed By: #### 2 4323-8 #### THELMA DENNISON ([id number]) [facility] ([facility]) [address] [place] [address] 75057 Albumin BCP dye [Mass/Vol] 3.1 g/dL Low 3.4 - 5.0 g/dL [facility] ALP [Catalytic activity/Vol] 47 U/L 33 - 136 U/L [facility] ALT With P-5'-P [Catalytic activity/Vol] 39 U/L 7 - 45 U/L [facility] Comment on above: Patients treated wit h Sulfasalazine may generate falsely decreased results for ALT. Anion gap [Moles/Vol] 11 mmol/L 10 - 2 0 mmol/L [facility] AST With P-5'-P [Catalytic activity/Vol] 45 U/L High 9 - 39 U/L [facility] Bilirubin [Mass/Vol] 0.5 mg/dL 0.0 - 1 .2 mg/dL [facility] Calcium [Mass/Vol] 11.1 mg/dL High 8.6 - 10. 3 mg/dL [facility] Chloride [Moles/Vol] 108 mmol/L High 98 - 10 7 mmol/L [facility] CO2 [Moles/Vol] 23 mmol/L 21 - 32 mmol/L [facility] Creatinine [Mass/Vol] 1.87 mg/dL High 0.50 - 1.05 mg/dL [facility] GFR/1.73 sq M.predicted among non-blacks MDRD (S/P/Bld) [Vol rate/Area] 27 mL/min/{1.73_m2} Low - PINF [facility] Comment on above: Calculations of marisabel mated GFR are performed using the 2020 CKD-EPI Study Refit equation without the race variable for the IDMS-Traceable creatinine methods. https://jasn.asnjournals.org/content/early//ASN.15408 56063 Glucose [Mass/Vol] 77 mg/dL 74 - 99 mg/dL [facility] Interpretation and review of laboratory results Abnormal [facility] Potassium [Moles/Vol] 3.8 mmol/L 3.5 - 5.3 mmol/L [facility] Protein [Mass/Vol] 5.1 g/dL Low 6.4 - 8.2 g/dL [facility] Sodium [Moles/Vol] 138 mmol/L 136 - 145 mmol/L [facility] Urea nitrogen [Mass/Vol] 38 mg/dL High 6 - 23 mg/dL [facility] Albumin BCP dye [Mass/Vol] 3.3 g/dL Low 3.4-5.0 [facility] Comment on above: Performed By: #### 2 4323-8 #### THELMA DENNISON ([id number]) [facility] ([facility]) [address] [place] [address] ALP [Catalytic activity/Vol] 52 U/L Normal 33-136 [facility] Comment on above: Performed By: #### 2 4323-8 #### THELMA DENNISON ([id number]) [facility] ([facility]) [address] [place] [address] 49082 ALT With P-5'-P [Catalytic activity/Vol] 43 U/L Normal 7-45 [facility] Comment on above: Result Comment: Liz ents treated with Sulfasalazine may generate falsely decreased results for ALT. Performed By: #### 2 4323-8 #### THELMA DENNISON ([id number]) [facility] ([facility]) [address] [place] [address] 27708 Anion gap [Moles/Vol] 10 mmol/L Normal 10-20 [facility] Comment on above: Performed By: #### 2 4323-8 #### THELMA DENNISON ([id number]) [facility] ([facility]) [address] [place] [address] 43609 AST With P-5'-P [Catalytic activity/Vol] 48 U/L High 9-39 [facility] Comment on above: Performed By: #### 2 4323-8 #### THELMA DENNISON ([id number]) [facility] ([facility]) [address] [place] [address] 42927 Bilirubin [Mass/Vol] 0.5 mg/dL Normal 0.0-1.2 [facility] Comment on above: Performed By: #### 2 4323-8 #### THELMA DENNISON ([id number]) [facility] ([facility]) [address] [place] [address] 84163 Calcium [Mass/Vol] 11.5 mg/dL High 8.6-10.3 [facility] Comment on above: Performed By: #### 2 4323-8 #### THELMA DENNISON ([id number]) [facility] ([facility]) [address] [place] [address] 88780 Chloride [Moles/Vol] 106 mmol/L Normal 98-107 [facility] Comment on above: Performed By: #### 2 4323-8 #### THELMA DENNISON ([id number]) [facility] ([facility]) [address] [place] [address] CO2 [Moles/Vol] 25 mmol/L Normal 21-32 [facility] Comment on above: Performed By: #### 2 4323-8 #### THELMA DENNISON ([id number]) [facility] ([facility]) [address] [place] [address] 90797 Creatinine [Mass/Vol] 1.95 mg/dL High 0.50-1.05 [facility] Comment on above: Performed By: #### 2 4323-8 #### THELMA DENNISON ([id number]) [facility] ([facility]) [address] [place] [address] 90549 Glomerular filtration rate/1.73 sq M.predicted 26 mL/min/1.73m*2 Low >60 [facility] Comment on above: Result Comment: Calc ulations of estimated GFR are performed using the 2020 CKD-EPI Study Refit equation without the race variable for the IDMS-Traceable creatinine methods. https://jasn.asnjournals.org/content//ASN.06873 19501 Performed By: #### 2 4323-8 #### THELMA DENNISON ([id number]) [facility] ([facility]) [address] [place] [address] 20819 Glucose [Mass/Vol] 83 mg/dL Normal 74-99 [facility] Comment on above: Performed By: #### 2 4323-8 #### THELMA DENNISON ([id number]) [facility] ([facility]) [address] [place] [address] 08423 Potassium [Moles/Vol] 3.8 mmol/L Normal 3.5-5.3 [facility] Comment on above: Performed By: #### 2 4323-8 #### THELMA DENNISON ([id number]) [facility] ([facility]) [address] [place] [address] 02403 Protein [Mass/Vol] 5.4 g/dL Low 6.4-8.2 [facility] Comment on above: Performed By: #### 2 4323-8 #### THELMA DENNISON ([id number]) [facility] ([facility]) [address] [place] [address] 59730 Sodium [Moles/Vol] 137 mmol/L Normal 136-145 [facility] Comment on above: Performed By: #### 2 4323-8 #### THELMA DENNISON ([id number]) [facility] ([facility]) [address] [place] [address] 93278 Urea nitrogen [Mass/Vol] 37 mg/dL High 6-23 [facility] Comment on above: Performed By: #### 2 4323-8 #### THELMA DENNISON ([id number]) [facility] ([facility]) [address] [place] [address] 81443 Albumin BCP dye [Mass/Vol] 3.3 g/dL Low 3.4 - 5.0 g/dL [facility] ALP [Catalytic activity/Vol] 52 U/L 33 - 136 U/L [facility] ALT With P-5'-P [Catalytic activity/Vol] 43 U/L 7 - 45 U/L [facility] Comment on above: Patients treated wit h Sulfasalazine may generate falsely decreased results for ALT. Anion gap [Moles/Vol] 10 mmol/L 10 - 2 0 mmol/L [facility] AST With P-5'-P [Catalytic activity/Vol] 48 U/L High 9 - 39 U/L [facility] Bilirubin [Mass/Vol] 0.5 mg/dL 0.0 - 1 .2 mg/dL [facility] Calcium [Mass/Vol] 11.5 mg/dL High 8.6 - 10. 3 mg/dL [facility] Chloride [Moles/Vol] 106 mmol/L 98 - 10 7 mmol/L [facility] CO2 [Moles/Vol] 25 mmol/L 21 - 32 mmol/L [facility] Creatinine [Mass/Vol] 1.95 mg/dL High 0.50 - 1.05 mg/dL [facility] GFR/1.73 sq M.predicted among non-blacks MDRD (S/P/Bld) [Vol rate/Area] 26 mL/min/{1.73_m2} Low - PINF [facility] Comment on above: Calculations of marisabel mated GFR are performed using the 2020 CKD-EPI Study Refit equation without the race variable for the IDMS-Traceable creatinine methods. https://jasn.asnjournals.org/content//ASN.79497 51397 Glucose [Mass/Vol] 83 mg/dL 74 - 99 mg/dL [facility] Interpretation and review of laboratory results Abnormal [facility] Potassium [Moles/Vol] 3.8 mmol/L 3.5 - 5.3 mmol/L [facility] Protein [Mass/Vol] 5.4 g/dL Low 6.4 - 8.2 g/dL [facility] Sodium [Moles/Vol] 137 mmol/L 136 - 145 mmol/L [facility] Urea nitrogen [Mass/Vol] 37 mg/dL High 6 - 23 mg/dL [facility] Magnesiumon 05-24-2023 Magnesium [Mass/Vol] 1.95 mg/dL Normal 1.60-2.40 [facility] Comment on above: Performed By: #### 1 9123-9 #### THELMA DENNISON ([id number]) [facility] ([facility]) [address] [place] [address] 52979 Magnesium [Mass/Vol] 1.95 mg/dL 1.60 - 2.40 mg/dL [facility] Magnesium [Mass/Vol] 2.03 mg/dL Normal 1.60-2.40 [facility] Comment on above: Performed By: #### 1 9123-9 #### THELMA DENNISON ([id number]) [facility] ([facility]) [address] [place] [address] 85647 Magnesium [Mass/Vol] 2.03 mg/dL 1.60 - 2.40 mg/dL [facility] Magnesium [Mass/Vol]on 05-23 Interpretation and review of laboratory results Normal [facility] Interpretation and review of laboratory results Normal [facility] No Panel Informationon 05-23 [facility] PT Coag (PPP) [Time]on 05-23 INR Coag (PPP) [Relative time] 2.2 High 0.9-1.1 [facility] Comment on above: Performed By: #### 5 902-2 #### THELMA DENNISON ([id number]) [facility] ([facility] [place] [address] [place] [id number] INR Coag (PPP) [Relative time] 2.2 {INR} High 0.9 - 1.1 [facility] Interpretation and review of laboratory results Abnormal [facility] PT and aPTT panel Coag (PPP) on 05-24-2023 aPTT Coag (PPP) [Time] 36 s Normal 27-38 [facility] Comment on above: Order Comment: The A PTT is no longer used for monitoring Unfractionated Heparin Therapy. For monitoring Heparin Therapy, use the Heparin Assay. Performed By: #### 3 4529-8 #### THELMA DENNISON ([id number]) [facility] ([facility]) [address] [place] [id number] INR Coag (PPP) [Relative time] 2.2 High 0.9-1.1 [facility] Comment on above: Order Comment: The A PTT is no longer used for monitoring Unfractionated Heparin Therapy. For monitoring Heparin Therapy, use the Heparin Assay. Performed By: #### 3 4529-8 #### THELMA DENNISON ([id number]) [facility] ([facility]) [address] [place] [address] [id number] PT Coag (PPP) [Time] 25.0 s High 9.8-12.8 [facility] Comment on above: Order Comment: The A PTT is no longer used for monitoring Unfractionated Heparin Therapy. For monitoring Heparin Therapy, use the Heparin Assay. Performed By: #### 3 4529-8 #### THELMA DENNISON ([id number]) [facility] ([facility] [place] [address] [place] [id number] aPTT Coag (PPP) [Time] 36 s [facility] INR Coag (PPP) [Relative time] 2.2 {INR} High 0.9 - 1.1 [facility] Interpretation and review of laboratory results Abnormal [facility] PT Coag (PPP) [Time] 25.0 s [facility] The APTT is no longe r used for monitoring Unfractionated Heparin Therapy. For monitoring Heparin Therapy, use the Heparin Assay. [facility] PTH, [place] 05-24-2023 Parathyrin.intact [Mass/Vol] 11.2 pg/mL Low 18.5 - 88.0 pg/mL [facility] Parathyrin.intacton 05-24-19 Parathyrin.intact [Mass/Vol] 11.2 pg/mL Low 18.5-88.0 [facility] Comment on above: Performed By: #### 2 [id number] #### JENNIFER Mirza ([id number]) [facility] ([facility]) [address] [place] [id number] Parathyrin.intact [Mass/Vol] on 05-24-2023 Interpretation and review of laboratory results Abnormal [facility] Protime-INRon 05-24-2023 PT Coag (PPP) [Time] 25.3 s [facility] SST TOPon 05-24-2023 Extra Tube Hold for add-ons. [facility] Comment on above: Auto resulted. [facility] Absolute lymphocyte countOrd ered By: Ankush Noguera on 05-23-2023 Lymphocytes Auto (Unsp spec) [#/Vol] 1.83 10*3/uL 0.83-4.51 [facility] Automated lymphocyte count a s percentage of total leukocytesOrdered By: Ankush Noguera on 05-23-2023 Lymphocytes/100 WBC Auto (Unsp spec) 19.2 % 19-41 [facility] Basic metabolic 2000 panelon 05-23-2023 Anion gap [Moles/Vol] 16 mmol/L 9 - 18 mmol/L [facility] Calcium [Mass/Vol] 12.6 mg/dL High 8.5 - 10. 2 mg/dL [facility] Chloride [Moles/Vol] 100 mmol/L 97 - 10 5 mmol/L [facility] CO2 [Moles/Vol] 18 mmol/L Low 22 - 30 mmol/L [facility] Creatinine [Mass/Vol] 1.98 mg/dL High 0.58 - 0.96 mg/dL [facility] Estimated Glomerular Filtration Rate 25 mL/min/1.73m Low >=60 mL/min/1.73m [facility] Glucose [Mass/Vol] 110 mg/dL High 74 - 99 mg/dL [facility] Potassium [Moles/Vol] 4.7 mmol/L 3.7 - 5.1 mmol/L [facility] Sodium [Moles/Vol] 134 mmol/L Low 136 - 144 mmol/L [facility] Urea nitrogen [Mass/Vol] 35 mg/dL High 7 - 21 mg/dL [facility] Basophil percentageOrdered B y: Ankush Noguera on 05-23-2023 Basophil percentage 50-100 SEEN /hpf 0-5 [facility] Basophils/100 WBC (Bld) 0.8 % 0-1 [facility] Bilirubin [Mass/Vol] 0.40 mg/dL 0.20-1.00 [facility] Comment on above: For patients on eltr ombopag therapy, use of Dimension [place] TBIL is not recommended. Chloride [Moles/Vol] 105 mmol/L 98-107 [facility] Eosinophils/100 WBC (Bld) 9.7 % 0-5 [facility] Glucose [Mass/Vol] 144 mg/dL 74-106 [facility] Comment on above: Fasting Glucose resu lt greater than or equal to 126 mg/dL suggests DIABETES MELLITUS per A.D.A. criteria. Hemoglobin (Bld) [Mass/Vol] 14.5 g/dL 12.0-15.0 [facility] Monocytes/100 WBC (Bld) 9.7 % 0-10 [facility] Neutrophils (Bld) [#/Vol] 5.7 10*3/uL 2.0-7.7 [facility] Neutrophils/100 WBC (Bld) 59.7 % 47-70 [facility] Potassium [Moles/Vol] 4.0 mmol/L 3.5-5.1 [facility] Protein [Mass/Vol] 5.9 g/dL 6.4-8.2 [facility] Sodium [Moles/Vol] 136 mmol/L 136-145 [facility] WBC (Bld) [#/Vol] 9.5 10*3/uL 4.4-11.0 [facility] Bilirubin Test strip Ql (U)O rdered By: Ankush Noguera on 05-23-2023 Bilirubin Ql (U) Negative Negative [facility] Calcium.ionized [Moles/Vol]o n 05-23-2023 Calcium.ionized (Bld) [Mass/Vol] 1.69 mmol/L High 1.08 - 1.30 mmol/L [facility] Calcium.ionized adjusted to pH 7.4 (Bld) [Moles/Vol] 1.69 mmol/L High 1.08 - 1.30 mmol/L [facility] Determination of erythrocyte mean corpuscular volume (MCV)Ordered By: Ankush Noguera on 05-23-2023 MCV (RBC) [Entitic vol] 85.4 fL 81-99 [facility] Erythrocyte distribution wid th ratioOrdered By: Ankush Noguera on 05-23-2023 Erythrocyte distribution width (RBC) [Ratio] 14.2 % 11.6-14.6 [facility] Erythrocyte distribution wid th standard deviationOrdered By: Ankush Noguera on 05-23-2023 Erythrocyte distribution width (RBC) [Entitic vol] 44.1 fL 35.1-43.9 [facility] Hematocrit Auto (Bld) [Volum e fraction]Ordered By: Ankush Noguera on 05-23-2023 Hematocrit (Bld) [Volume fraction] 43.3 % 37-47 [facility] Immature granulocytes/100 WB C Auto (Bld)Ordered By: Ankush Noguera on 05-23-2023 Immature granulocytes/100 WBC (Bld) 0.900 % 0.0-0.9 [facility] Comment on above: IG% - Immature Granu locytes (promyelocytes, myelocytes and metamyelocytes) > 1% indicates that a LEFT SHIFT is Present. Ketones Test strip Ql (U)Ord ered By: Ankush Noguera on 05-23-2023 Ketones Ql (U) Negative Negative [facility] Laboratory - Chemistry and C hemistry - challengeOrdered By: Ankush Noguera on 05-23-2023 Albumin/Globulin [Mass ratio] 1.0 {ratio} 0.9-2.4 [facility] ALP [Catalytic activity/Vol] 76 U/L 45-117 [facility] ALT [Catalytic activity/Vol] 62 U/L 13-56 [facility] CO2 [Moles/Vol] 23.0 mmol/L 21.0-32.0 [facility] Globulin (S) [Mass/Vol] 3.0 g/dL 2.2-4.2 [facility] Urea nitrogen/Creatinine [Mass ratio] 18.9 mg/mg 10-20 [facility] Laboratory - CoagulationOrde red By: Ankush Noguera on 05-23-2023 INR Coag (Bld) [Relative time] 2.1 {INR} [facility] PT Coag (PPP) [Time] 23.0 s 11.7-14.9 [facility] Laboratory - Hematology and Cell countsOrdered By: Ankush Noguera on 05-23-2023 MCH (RBC) [Entitic mass] 28.6 pg 27.0-32.0 [facility] MCHC (RBC) [Mass/Vol] 33.5 g/dL 32-36 [facility] Nucleated RBC/100 WBC (Bld) [Ratio] 0 % 0-5 [facility] Platelet mean volume (Bld) [Entitic vol] 10.9 fL 6.2-12.0 [facility] Platelets (Bld) [#/Vol] 271 10*3/uL 150-450 [facility] MAGNESIUM BLDon 05-23-2023 Magnesium [Mass/Vol] 2.3 mg/dL 1.7 - 2 .3 mg/dL [facility] Mucus LM Ql (Urine sed)Order ed By: Ankush Noguera on 05-23-2023 Mucus Ql (Urine sed) 0 SEEN /hpf [facility] Nitrite Test strip Ql (U)Ord ered By: Ankush Noguera on 05-23-2023 Nitrite Ql (U) Negative Negative [facility] No Panel InformationOrdered By: Ankush Noguera on 05-23-2023 Urine RBC 10-25 SEEN /hpf 0-5 [facility] Ionized Calcium 6.22 mg/dL 4.36-5.20 [facility] Estimated Creatinine Clearance Calc 19.14 ml/min [facility] Estimated GFR (MDRD) Amer 30 mL/min >60 [facility] Comment on above: GFR Calc Estimated GFR (MDRD) Non-Af Amer 25 mL/min >60 [facility] Comment on above: Non- GFR Calc Troponin I High Sensitivity 32 pg/mL 3.0-54.0 [facility] Comment on above: Please Note: New Katerina t Units and Gender Specific Reference Ranges. For more information see Policy Stat Procedure [place] High Sensitivity Troponin (TNIH) and attachments. PHOSPHORUS INORGANICon 05-22 Phosphate [Mass/Vol] 4.1 mg/dL 2.7 - 4 .8 mg/dL [facility] Protein Test strip Ql (U)Ord ered By: Ankush Noguera on 05-23-2023 Protein Ql (U) 15 mg/dl Negative [facility] RBC Auto (Bld) [#/Vol]Ordere d By: Ankush Noguera on 05-23-2023 RBC (Bld) [#/Vol] 5.07 10*6/uL 4.2-5.4 [facility] Serum or plasma calcium scott urement (mass/volume)Ordered By: Ankush Noguera on 05-23-2023 Calcium [Mass/Vol] 11.9 mg/dL 8.5-10.1 [facility] Serum or plasma creatinine m easurement (mass/volume)Ordered By: Ankush Noguera on 05-23-2023 Creatinine [Mass/Vol] 2.06 mg/dL 0.55-1.02 [facility] Comment on above: The validity of the calculated GFR & GFRAA in patients over 70 years has not been determined. Clinical correlation is essential. Serum or plasma urea nitroge n measurement (mass/volume)Ordered By: Ankush Noguera on 05-23-2023 Urea nitrogen [Mass/Vol] 39 mg/dL 7-18 [facility] Squamous epithelial cells de tection in urine sediment by light microscopyOrdered By: Ankush Noguera on 05-23-2023 Epithelial cells.squamous LM Ql (Urine sed) 5-10 SEEN /hpf 5-10 [facility] Thin prep Papanicolaou smear with manual screeningOrdered By: Ankush Noguera on 05-23-2023 Thin prep Papanicolaou smear with manual screening 2.9 g/dL 3.2-5.0 [facility] Thin prep Papanicolaou smear with manual screening 64 U/L 15-37 [facility] Thin prep Papanicolaou smear with manual screening 8 5-15 [facility] UA DIP, URINE (POC)on 2023 BILIRUBIN UA (POCT) Negative Negative [facility] CLARITY UA (POCT) Clear [facility] COLOR UA (POCT) Yellow [facility] GLUCOSE UA (POCT) Negative Negative mg/dL [facility] Hemoglobin Ql (U) Small Abnormal Negative [facility] KETONE UA (POCT) Negative Negative mg/dL [facility] LEUKOCYTES UA (POCT) Small Abnormal Negative [facility] NITRITE UA (POCT) Negative Negative [facility] PH UA (POCT) 5.5 4.5 - 8.0 [facility] Protein Ql (U) Negative Negative mg/dL [facility] SPECIFIC GRAVITY UA (POCT) <=1.005 Abnormal 1.005 - 1.030 [facility] UROBILINOGEN UA (POCT) 0.2 E.U./dL Camelia l E.U./dL [facility] Urine blood detectionOrdered By: Ankush Noguera on 05-23-2023 RBC Ql (U) 25 /ul Negative [facility] Urine clarityOrdered By: Edouard Noguera on 05-23-2023 Clarity (U) Clear Clear [facility] Urine color determinationOrd ered By: Ankush Noguera on 05-23-2023 Color (U) Yellow Yellow [facility] Urine glucose detectionOrder ed By: Ankush Noguera on 05-23-2023 Glucose Ql (U) Normal mg/dl Normal [facility] Urine leukocyte esterase det ection by dipstickOrdered By: Ankush Noguera on 05-23-2023 Leukocyte esterase Test strip Ql (U) 500 /ul Negative [facility] Urine pHOrdered By: Ankush ford on 05-23-2023 pH (U) 6.5 [pH] 5.0 - 8.0 [facility] Urine sediment bacteria coun t by microscopy (number/high power field)Ordered By: Ankush Noguera on 05-23-2023 Bacteria LM.HPF (Urine sed) [#/Area] 0 /[HPF] None Seen [facility] Urine specific gravity measu rementOrdered By: Ankush Noguera on 05-23-2023 Specific gravity (U) [Rel density] 1.010 1.002-1.030 [facility] Urine urobilinogen measureme ntOrdered By: Ankush Noguera on 05-23-2023 Urobilinogen Ql (U) Normal mg/dl Normal [facility] Absolute lymphocyte countOrd ered By: Juan Alberto Mcclendon on 05-15-2023 Lymphocytes Auto (Unsp spec) [#/Vol] 1.74 10*3/uL 0.83-4.51 [facility] Automated lymphocyte count a s percentage of total leukocytesOrdered By: Juan Alberto Mcclendon on 05-15-2023 Lymphocytes/100 WBC Auto (Unsp spec) 15.8 % 19-41 [facility] Basophil percentageOrdered B y: Juan Alberto Mcclendon on 05-15-2023 Basophils/100 WBC (Bld) 0.6 % 0-1 [facility] Chloride [Moles/Vol] 103 mmol/L 98-107 [facility] Eosinophils/100 WBC (Bld) 6.4 % 0-5 [facility] Glucose [Mass/Vol] 103 mg/dL 74-106 [facility] Comment on above: Fasting Glucose resu lt from 100 to 125 mg/dL suggests IMPAIRED HOMEOSTASIS per A.D.A. criteria. Hemoglobin (Bld) [Mass/Vol] 14.4 g/dL 12.0-15.0 [facility] Monocytes/100 WBC (Bld) 10.7 % 0-10 [facility] Neutrophils (Bld) [#/Vol] 7.2 10*3/uL 2.0-7.7 [facility] Neutrophils/100 WBC (Bld) 65.8 % 47-70 [facility] Potassium [Moles/Vol] 3.6 mmol/L 3.5-5.1 [facility] Sodium [Moles/Vol] 134 mmol/L 136-145 [facility] WBC (Bld) [#/Vol] 11.0 10*3/uL 4.4-11.0 [facility] Determination of erythrocyte mean corpuscular volume (MCV)Ordered By: Juan Alberto Mcclendon on 05-15-2023 MCV (RBC) [Entitic vol] 88.0 fL 81-99 [facility] Erythrocyte distribution wid th ratioOrdered By: Juan Alberto Mcclendon on 05-15-2023 Erythrocyte distribution width (RBC) [Ratio] 14.3 % 11.6-14.6 [facility] Erythrocyte distribution wid th standard deviationOrdered By: Juan Alberto Mcclendon on 05-15-2023 Erythrocyte distribution width (RBC) [Entitic vol] 45.5 fL 35.1-43.9 [facility] Hematocrit Auto (Bld) [Volum e fraction]Ordered By: Juan Alberto Mcclendon on 05-15-2023 Hematocrit (Bld) [Volume fraction] 44.8 % 37-47 [facility] Immature granulocytes/100 WB C Auto (Bld)Ordered By: Juan Alberto Mcclendon on 05-15-2023 Immature granulocytes/100 WBC (Bld) 0.700 % 0.0-0.9 [facility] Comment on above: IG% - Immature Granu locytes (promyelocytes, myelocytes and metamyelocytes) > 1% indicates that a LEFT SHIFT is Present. Laboratory - Chemistry and C hemistry - challengeOrdered By: Juan Alberto Mcclendon on 05-15-2023 CO2 [Moles/Vol] 22.0 mmol/L 21.0-32.0 [facility] Urea nitrogen/Creatinine [Mass ratio] 17.6 mg/mg 10-20 [facility] Laboratory - Hematology and Cell countsOrdered By: Juan Alberto Mcclendon on 05-15-2023 MCH (RBC) [Entitic mass] 28.3 pg 27.0-32.0 [facility] MCHC (RBC) [Mass/Vol] 32.1 g/dL 32-36 [facility] Nucleated RBC/100 WBC (Bld) [Ratio] 0 % 0-5 [facility] Platelet mean volume (Bld) [Entitic vol] 11.8 fL 6.2-12.0 [facility] Platelets (Bld) [#/Vol] 216 10*3/uL 150-450 [facility] No Panel InformationOrdered By: Juan Alberto Mcclendon on 05-15-2023 Estimated Creatinine Clearance Calc 19.41 ml/min [facility] Estimated GFR (MDRD) Amer 30 mL/min >60 [facility] Comment on above: GFR Calc Estimated GFR (MDRD) Non-Af Amer 25 mL/min >60 [facility] Comment on above: Non- GFR Calc RBC Auto (Bld) [#/Vol]Ordere d By: Juan Alberto Mcclendon on 05-15-2023 RBC (Bld) [#/Vol] 5.09 10*6/uL 4.2-5.4 [facility] Serum or plasma calcium scott urement (mass/volume)Ordered By: Juan Alberto Mcclendon on 05-15-2023 Calcium [Mass/Vol] 11.1 mg/dL 8.5-10.1 [facility] Serum or plasma creatinine m easurement (mass/volume)Ordered By: Juan Alberto Mcclendon on 05-15-2023 Creatinine [Mass/Vol] 2.04 mg/dL 0.55-1.02 [facility] Comment on above: The validity of the calculated GFR & GFRAA in patients over 70 years has not been determined. Clinical correlation is essential. Serum or plasma urea nitroge n measurement (mass/volume)Ordered By: Juan Alberto Mcclendon on 05-15-2023 Urea nitrogen [Mass/Vol] 36 mg/dL 7-18 [facility] Thin prep Papanicolaou smear with manual screeningOrdered By: Juan Alberto Mcclendon on 05-15-2023 Thin prep Papanicolaou smear with manual screening 9 5-15 [facility] Capillary blood internationa l normalized ratio (INR)Ordered By: Basim Velasquez on 2023 INR Coag (BldC) [Relative time] 3.0 [facility] Comment on above: Critical Value > 4.0 Whole blood prothrombin time Ordered By: Basim Velasquez on 2023 PT Coag (Bld) [Time] 32.0 s 11.7-14.9 [facility] No Panel InformationOrdered By: Jennifer Tarango on 04-04-2023 Vitamin D 25-Hydroxy 66.6 ng/mL [facility] Comment on above: Vitamin D 25(OH) Sta tus Range Deficiency <20 ng/mL (50nmol/L) Insufficiency 20 - 30 ng/mL (50 - 75 nmol/L) Sufficiency 30 - 100 ng/mL (75 - 250 nmol/L) Toxicity >100 ng/mL (>250 nmol/L) Serum or plasma calcitriol m easurement (mass/volume)Ordered By: Jennifer Tarango on 04-04-2023 1,25-dihydroxyvitamin D3 [Mass/Vol] 45.7 pg/mL 24.8-81.5 [facility] Comment on above: Performed at: [address] [id number] Director: Yvonne Cook MD, Phone: [phone] Basophil percentageOrdered B y: Basim Velasquez on 03-28-2023 Basophil percentage 2.8 mg/dL 2.5-4.9 [facility] Chloride [Moles/Vol] 106 mmol/L 98-107 [facility] Glucose [Mass/Vol] 94 mg/dL 74-106 [facility] Potassium [Moles/Vol] 4.1 mmol/L 3.5-5.1 [facility] Sodium [Moles/Vol] 137 mmol/L 136-145 [facility] Laboratory - Chemistry and C hemistry - challengeOrdered By: Basim Velasquez on 03-28-2023 CO2 [Moles/Vol] 28.0 mmol/L 21.0-32.0 [facility] Urea nitrogen/Creatinine [Mass ratio] 26.5 mg/mg 10-20 [facility] Laboratory - CoagulationOrde red By: Basim Velasquez on 03-28-2023 INR Coag (Bld) [Relative time] 1.7 {INR} [facility] PT Coag (PPP) [Time] 20.5 s 11.7-14.9 [facility] No Panel InformationOrdered By: Basim Velasquez on 03-28-2023 Estimated GFR (MDRD) Amer 32 mL/min >60 [facility] Comment on above: GFR Calc Estimated GFR (MDRD) Non-Af Amer 26 mL/min >60 [facility] Comment on above: Non- GFR Calc Serum or plasma calcium scott urement (mass/volume)Ordered By: Basim Velasquez on 03-28-2023 Calcium [Mass/Vol] 10.9 mg/dL 8.5-10.1 [facility] Serum or plasma creatinine m easurement (mass/volume)Ordered By: Basim Velasquez on 03-28-2023 Creatinine [Mass/Vol] 1.96 mg/dL 0.55-1.02 [facility] Comment on above: The validity of the calculated GFR & GFRAA in patients over 70 years has not been determined. Clinical correlation is essential. Serum or plasma urea nitroge n measurement (mass/volume)Ordered By: Basim Velasquez on 03-28-2023 Urea nitrogen [Mass/Vol] 52 mg/dL 7-18 [facility] Thin prep Papanicolaou smear with manual screeningOrdered By: Basim Velasquez on 03-28-2023 Thin prep Papanicolaou smear with manual screening 3.5 g/dL 3.2-5.0 [facility] Laboratory - CoagulationOrde red By: Basim Velasquez on 02-24-2023 PT Coag (PPP) [Time] 26.7 s 11.7-14.9 [facility] Whole blood international no rmalized ratio (INR)Ordered By: Basim Velasquez on 02-24-2023 INR Coag (Bld) [Relative time] 2.4 {INR} [facility] Laboratory - CoagulationOrde red By: Basim Velasquez on 02-08-2023 INR Coag (Bld) [Relative time] 3.1 {INR} [facility] Comment on above: Critical Value > 4.0 Whole blood prothrombin time Ordered By: Basim Velasquez on 02-08-2023 PT Coag (Bld) [Time] 33.3 s 11.7-14.9 [facility] Laboratory - CoagulationOrde red By: Basim Velasquez on 12-23-2022 INR Coag (Bld) [Relative time] 2.8 {INR} [facility] Comment on above: Critical Value > 4.0 Whole blood prothrombin time Ordered By: Basim Velasquez on 12-23-2022 PT Coag (Bld) [Time] 30.6 s 11.7-14.9 [facility] XR FOOT GENERAL 3V AP/LAT/OB L RIGHTon 12-19-[address] [facility] Basophil percentageOrdered B y: Basim Velasquez on 12-08-2022 Basophil percentage 2.5 mg/dL 2.5-4.9 [facility] Chloride [Moles/Vol] 107 mmol/L 98-107 [facility] Glucose [Mass/Vol] 185 mg/dL 74-106 [facility] Comment on above: Fasting Glucose resu lt greater than or equal to 126 mg/dL suggests DIABETES MELLITUS per A.D.A. criteria. Potassium [Moles/Vol] 4.3 mmol/L 3.5-5.1 [facility] Sodium [Moles/Vol] 140 mmol/L 136-145 [facility] INR in Blood by Coagulation assayOrdered By: Basim Velasquez on 12-08-2022 INR Coag (Bld) [Relative time] 3.1 {INR} [facility] Laboratory - Chemistry and C hemistry - challengeOrdered By: Basim Velasquez on 12-08-2022 CO2 [Moles/Vol] 28.0 mmol/L 21.0-32.0 [facility] Urea nitrogen/Creatinine [Mass ratio] 21.9 mg/mg 12-09 [facility] Laboratory - CoagulationOrde red By: Basim Velasquez on 12-08-2022 PT Coag (PPP) [Time] 32.0 s 11.7-14.9 [facility] No Panel InformationOrdered By: Basim Velasquez on 12-08-2022 Estimated GFR (MDRD) Amer 34 mL/min >60 [facility] Comment on above: GFR Calc Estimated GFR (MDRD) Non-Af Amer 28 mL/min >60 [facility] Comment on above: Non- GFR Calc Serum or plasma albumin scott urement (mass/volume)Ordered By: Basim Velasquez on 12-08-2022 Albumin [Mass/Vol] 3.5 g/dL 3.2-5.0 [facility] Serum or plasma calcium scott urement (mass/volume)Ordered By: Basim Velasquez on 12-08-2022 Calcium [Mass/Vol] 9.4 mg/dL 8.5-10.1 [facility] Serum or plasma creatinine m easurement (mass/volume)Ordered By: Basim Velasquez on 12-08-2022 Creatinine [Mass/Vol] 1.83 mg/dL 0.55-1.02 [facility] Comment on above: The validity of the calculated GFR & GFRAA in patients over 70 years has not been determined. Clinical correlation is essential. Serum or plasma urea nitroge n measurement (mass/volume)Ordered By: Basim Velasquez on 12-08-2022 Urea nitrogen [Mass/Vol] 40 mg/dL 7-18 [facility] XR FOOT GENERAL 3V AP/LAT/OB L RIGHTon 12-01-2022 [facility] Basophil percentageOrdered B y: Torsten Vann on 11-24-2022 Bilirubin [Mass/Vol] 0.60 mg/dL 0.20-1.00 [facility] Comment on above: For patients on eltr ombopag therapy, use of Dimension [place] TBIL is not recommended. Protein [Mass/Vol] 7.2 g/dL 6.4-8.2 [facility] Laboratory - Chemistry and C hemistry - challengeOrdered By: Torsten Vann on 11-24-2022 ALP [Catalytic activity/Vol] 103 U/L 45-117 [facility] ALT [Catalytic activity/Vol] 38 U/L 13-56 [facility] Globulin (S) [Mass/Vol] 3.4 g/dL 2.2-4.2 [facility] No Panel InformationOrdered By: Torsten Vann on 11-24-2022 Thyroid Stimulating Hormone (TSH) 0.42 uIU/mL 0.358-3.74 [facility] Vitamin D 25-Hydroxy 49.5 ng/mL [facility] Comment on above: Vitamin D 25(OH) Sta tus Range Deficiency <20 ng/mL (50nmol/L) Insufficiency 20 - 30 ng/mL (50 - 75 nmol/L) Sufficiency 30 - 100 ng/mL (75 - 250 nmol/L) Toxicity >100 ng/mL (>250 nmol/L) Serum or plasma albumin/glob ulin mass ratioOrdered By: Torsten Vann on 11-24-2022 Albumin/Globulin [Mass ratio] 1.1 {ratio} 0.9-2.4 [facility] Thin prep Papanicolaou smear with manual screeningOrdered By: Torsten Vann on 11-24-2022 Thin prep Papanicolaou smear with manual screening 28 U/L 15-37 [facility] Thin prep Papanicolaou smear with manual screening 5 5-15 [facility] XR FOOT GENERAL 3V AP/LAT/OB L RIGHTon 11-08-2022 [facility] XR Foot - right AP and Later al and obliqueon 11-08-2022 IMPRESSION: Acute nondisplaced fracture of the proximal fifth metatarsal shaft. Doll Wigs Hackler: STEPAN Transcribe Date/Time: Nov 08 2022 11:28A Dictated by : ELIZABETH GEORGE MD This examination was interpreted and the report reviewed and electronically signed by: ELIZABETH GEORGE MD on Nov 08 2022 11:29AM [facility] DIVISION OF RADIOLOGY * * *Final Report* [...] of the vasculature. DIVISION OF RADIOLOGY Provider, [facility] - 11/08/2022 * * *Final Report* * [...] fracture of the proximal fifth metatarsal shaft. Doll Wigs Hackler: PSCB Transcribe Date/Time: Nov 08 2022 11:28A Dictated by : ELIZABETH GEORGE MD This examination was interpreted and the report reviewed and electronically signed by: ELIZABETH GEORGE MD on Nov 08 2022 11:29AM EST [facility] Radiology Study observation (narrative) [facility] XR Foot - right AP and Later al and obliqueOrdered By: Ccf Provider on 11-08-2022 [facility] XR HIP BILATERAL 5V PEL/AP/L AT EACH HIPon 10-28-2022 IMPRESSION: Mild hip degenerative change bilaterally. Doll Wigs Hackler: STEPAN Transcribe Date/Time: Oct 28 2022 9:25A [...] no bony erosions. DIVISION OF RADIOLOGY Provider, Camilla Burden [facility] - 10/28/2022 * * *Final Report* [...] IMPRESSION IMPRESSION: Mild hip degenerative change bilaterally. Doll Wigs Hackler: PSCB Transcribe Date/Time: Oct 28 2022 9:25A Dictated by : JAYME RIDER MD This examination was interpreted and the report reviewed and electronically signed by: JAYME RIDER MD on Oct 28 2022 9:26AM EST [facility] XR HIP BILATERAL 5V PEL/AP/L AT EACH HIPOrdered By: Ccf Provider on 10-28-2022 [facility] Laboratory - CoagulationOrde red By: Basim Velasquez on 10-26-2022 INR Coag (Bld) [Relative time] 2.4 {INR} [facility] Comment on above: Critical Value > 4.0 Whole blood prothrombin time Ordered By: aBsim Velasquez on 10-26-2022 PT Coag (Bld) [Time] 25.8 s 11.7-14.9 [facility] XR HIP BILATERAL 5V PEL/AP/L AT EACH HIPon 10-26-2022 Radiology Study observation (narrative) [facility] Laboratory - CoagulationOrde red By: Basim Velasquez on 10-11-2022 INR Coag (Bld) [Relative time] 3.2 {INR} [facility] Comment on above: Critical Value > 4.0 Whole blood prothrombin time Ordered By: Basim Velasquez on 10-11-2022 PT Coag (Bld) [Time] 34.6 s 11.7-14.9 [facility] Laboratory - CoagulationOrde red By: Basim Velasquez on 09-12-2022 INR Coag (Bld) [Relative time] 2.4 {INR} [facility] Comment on above: Critical Value > 4.0 Whole blood prothrombin time Ordered By: Basim Velasquez on 09-12-2022 PT Coag (Bld) [Time] 25.7 s 11.7-14.9 [facility] INR in Blood by Coagulation assayOrdered By: Basim Velasquez on 08-11-2022 INR Coag (Bld) [Relative time] 2.6 {INR} [facility] Laboratory - CoagulationOrde red By: Basim Velasquez on 08-11-2022 PT Coag (PPP) [Time] 28.3 s 11.7-14.9 [facility] Basophil percentageOrdered B y: Jennifer Tarango on 07-26-2022 Basophil percentage 2.6 mg/dL 2.5-4.9 [facility] Chloride [Moles/Vol] 107 mmol/L 98-107 [facility] Glucose [Mass/Vol] 80 mg/dL 74-106 [facility] Potassium [Moles/Vol] 3.9 mmol/L 3.5-5.1 [facility] Sodium [Moles/Vol] 139 mmol/L 136-145 [facility] Laboratory - Chemistry and C hemistry - challengeOrdered By: Jennifer Tarango on 07-26-2022 CO2 [Moles/Vol] 23.0 mmol/L 21.0-32.0 [facility] Urea nitrogen/Creatinine [Mass ratio] 21.3 mg/mg 10-20 [facility] No Panel InformationOrdered By: Jennifer Tarango on 07-26-2022 Estimated GFR (MDRD) Amer 34 mL/min >60 [facility] Comment on above: GFR Calc Estimated GFR (MDRD) Non-Af Amer 28 mL/min >60 [facility] Comment on above: Non- GFR Calc Serum or plasma albumin scott urement (mass/volume)Ordered By: Jennifer Tarango on 07-26-2022 Albumin [Mass/Vol] 3.8 g/dL 3.2-5.0 [facility] Serum or plasma calcium scott urement (mass/volume)Ordered By: Jennifer Tarango on 07-26-2022 Calcium [Mass/Vol] 9.3 mg/dL 8.5-10.1 [facility] Serum or plasma creatinine m easurement (mass/volume)Ordered By: Jennifer Tarango on 07-26-2022 Creatinine [Mass/Vol] 1.83 mg/dL 0.55-1.02 [facility] Comment on above: The validity of the calculated GFR & GFRAA in patients over 70 years has not been determined. Clinical correlation is essential. Serum or plasma urea nitroge n measurement (mass/volume)Ordered By: Jennifer Tarango on 07-26-2022 Urea nitrogen [Mass/Vol] 39 mg/dL 09-06 [facility] Laboratory - CoagulationOrde red By: Basim Velasquez on 07-08-2022 INR Coag (Bld) [Relative time] 2.1 {INR} [facility] Comment on above: Critical Value > 4.0 Whole blood prothrombin time Ordered By: Basim Velasquez on 07-08-2022 PT Coag (Bld) [Time] 23.5 s 11.7-14.9 [facility] Basophil percentageOrdered B y: Dr. Tarango on 06-07-2022 Basophil percentage 1.5 mg/dL 2.5-4.9 [facility] Chloride [Moles/Vol] 109 mmol/L 98-107 [facility] Glucose [Mass/Vol] 82 mg/dL 74-106 [facility] Potassium [Moles/Vol] 4.1 mmol/L 3.5-5.1 [facility] Sodium [Moles/Vol] 136 mmol/L 136-145 [facility] Laboratory - Chemistry and C hemistry - challengeOrdered By: Dr. Tarango on 06-07-2022 CO2 [Moles/Vol] 18.0 mmol/L 21.0-32.0 [facility] Urea nitrogen/Creatinine [Mass ratio] 16.1 mg/mg 10- [facility] No Panel InformationOrdered By: Dr. Tarango on 06-07-2022 Estimated GFR (MDRD) Amer 40 mL/min >60 [facility] Comment on above: GFR Calc Estimated GFR (MDRD) Non-Af Amer 33 mL/min >60 [facility] Comment on above: Non- GFR Calc Serum or plasma albumin scott urement (mass/volume)Ordered By: Dr. Tarango on 06-07-2022 Albumin [Mass/Vol] 3.7 g/dL 3.2-5.0 [facility] Serum or plasma calcium scott urement (mass/volume)Ordered By: Dr. Tarango on 06-07-2022 Calcium [Mass/Vol] 8.7 mg/dL 8.5-10.1 [facility] Serum or plasma creatinine m easurement (mass/volume)Ordered By: Dr. Tarango on 06-07-2022 Creatinine [Mass/Vol] 1.61 mg/dL 0.55-1.02 [facility] Comment on above: The validity of the calculated GFR & GFRAA in patients over 70 years has not been determined. Clinical correlation is essential. Serum or plasma urea nitroge n measurement (mass/volume)Ordered By: Dr. Tarango on 06-07-2022 Urea nitrogen [Mass/Vol] 26 mg/dL -18 [facility] Basophil percentageOrdered B y: Dr. Tarango on 05-31-2022 Basophil percentage 2.9 mg/dL 2.5-4.9 [facility] Chloride [Moles/Vol] 109 mmol/L 98-107 [facility] Glucose [Mass/Vol] 98 mg/dL 74-106 [facility] Potassium [Moles/Vol] 3.9 mmol/L 3.5-5.1 [facility] Comment on above: Slight Hemolysis, Re sult may be falsely increased. Sodium [Moles/Vol] 139 mmol/L 136-145 [facility] Laboratory - Chemistry and C hemistry - challengeOrdered By: Dr. Tarango on 05-31-2022 CO2 [Moles/Vol] 24.0 mmol/L 21.0-32.0 [facility] Urea nitrogen/Creatinine [Mass ratio] 14.5 mg/mg 10-20 [facility] No Panel InformationOrdered By: Dr. Tarango on 05-31-2022 Estimated GFR (MDRD) Amer 28 mL/min >60 [facility] Comment on above: GFR Calc Estimated GFR (MDRD) Non-Af Amer 23 mL/min >60 [facility] Comment on above: Non- GFR Calc Serum or plasma albumin scott urement (mass/volume)Ordered By: Dr. Tarango on 05-31-2022 Albumin [Mass/Vol] 3.5 g/dL 3.2-5.0 [facility] Serum or plasma calcium scott urement (mass/volume)Ordered By: Dr. Tarango on 05-31-2022 Calcium [Mass/Vol] 9.2 mg/dL 8.5-10.1 [facility] Serum or plasma creatinine m easurement (mass/volume)Ordered By: Dr. Tarango on 05-31-2022 Creatinine [Mass/Vol] 2.20 mg/dL 0.55-1.02 [facility] Comment on above: The validity of the calculated GFR & GFRAA in patients over 70 years has not been determined. Clinical correlation is essential. Serum or plasma urea nitroge n measurement (mass/volume)Ordered By: Dr. Tarango on 05-31-2022 Urea nitrogen [Mass/Vol] 32 mg/dL 7 [facility] Laboratory - CoagulationOrde red By: Dr. Marte on 05-09-2022 INR Coag (Bld) [Relative time] 2.4 {INR} [facility] Comment on above: Critical Value > 4.0 Whole blood prothrombin time Ordered By: Dr. Marte on 05-09-2022 PT Coag (Bld) [Time] 25.9 s 11.7-14.9 [facility] Laboratory - CoagulationOrde red By: Dr. Marte on 03-25-2022 INR Coag (Bld) [Relative time] 2.4 {INR} [facility] Comment on above: Critical Value > 4.0 No Panel Informationon 03-25 INR International Normalized Ratio 2.4 [facility] Whole blood prothrombin time Ordered By: Dr. Marte on 03-25-2022 PT Coag (Bld) [Time] 28.3 s 11.7-14.9 [facility] Laboratory - CoagulationOrde red By: Dr. Marte on 03-10-2022 INR Coag (Bld) [Relative time] 3.3 {INR} [facility] Comment on above: Critical Value > 4.0 Whole blood prothrombin time Ordered By: Dr. Marte on 03-10-2022 PT Coag (Bld) [Time] 37.6 s 11.7-14.9 [facility] Laboratory - CoagulationOrde red By: Dr. Marte on 02-15-2022 INR Coag (Bld) [Relative time] 1.0 {INR} [facility] Comment on above: Critical Value > 4.0 Whole blood prothrombin time Ordered By: Dr. Marte on 02-15-2022 PT Coag (Bld) [Time] 13.0 s 11.7-14.9 [facility] Laboratory - Coagulationon 1 03-30-2021 INR Coag (Bld) [Relative time] 1.7 {INR} [facility] Work Phone: Comment on above: Critical Value > 4.0 Whole blood prothrombin time on 01-27-2022 PT Coag (Bld) [Time] 20.8 s 11.7-14.9 [facility] Work Phone: Basophil percentageOrdered B y: Basim Velasquez on 01-25-2022 Chloride [Moles/Vol] 105 mmol/L 98-107 [facility] Glucose [Mass/Vol] 104 mg/dL 74-106 [facility] Comment on above: Fasting Glucose resu lt from 100 to 125 mg/dL suggests IMPAIRED HOMEOSTASIS per A.D.A. criteria. Potassium [Moles/Vol] 4.1 mmol/L 3.5-5.1 [facility] Sodium [Moles/Vol] 138 mmol/L 136-145 [facility] INR in Blood by Coagulation assayOrdered By: Dr. Marte on 01-25-2022 INR Coag (Bld) [Relative time] 11.9 {INR} [facility] Comment on above: ACRITICAL VALUE VERI FIED. CALLED TO RONNIE HAWKINS ([facility])01/25/22 1337 Omar BabcockRESULTS READ BACK BY SAME. Laboratory - Chemistry and C hemistry - challengeOrdered By: Basim Velasquez on 01-25-2022 CO2 [Moles/Vol] 26.0 mmol/L 21.0-32.0 [facility] Urea nitrogen/Creatinine [Mass ratio] 15.2 mg/mg 10-20 [facility] Laboratory - CoagulationOrde red By: Dr. Marte on 01-25-2022 PT Coag (PPP) [Time] 92.3 s 11.7-14.9 [facility] No Panel InformationOrdered By: Basim Velasquez on 01-25-2022 Estimated GFR (MDRD) Amer 34 mL/min >60 [facility] Comment on above: GFR Calc Estimated GFR (MDRD) Non-Af Amer 28 mL/min >60 [facility] Comment on above: Non- GFR Calc No Panel InformationOrdered By: Dr. Vann on 01-25-2022 Vitamin D 25-Hydroxy 39.0 ng/mL [facility] Comment on above: Vitamin D 25(OH) Sta tus Range Deficiency <20 ng/mL (50nmol/L) Insufficiency 20 - 30 ng/mL (50 - 75 nmol/L) Sufficiency 30 - 100 ng/mL (75 - 250 nmol/L) Toxicity >100 ng/mL (>250 nmol/L) Serum or plasma calcium scott urement (mass/volume)Ordered By: Basim Velasquez on 01-25-2022 Calcium [Mass/Vol] 9.3 mg/dL 8.5-10.1 [facility] Serum or plasma creatinine m easurement (mass/volume)Ordered By: Basim Velasquez on 01-25-2022 Creatinine [Mass/Vol] 1.84 mg/dL 0.55-1.02 [facility] Comment on above: The validity of the calculated GFR & GFRAA in patients over 70 years has not been determined. Clinical correlation is essential. Serum or plasma urea nitroge n measurement (mass/volume)Ordered By: Basim Velasquez on 01-25-2022 Urea nitrogen [Mass/Vol] 28 mg/dL 7- [facility] Thin prep Papanicolaou smear with manual screeningOrdered By: Basim Velasquez on 01-25-2022 Thin prep Papanicolaou smear with manual screening 7 - [facility] Laboratory - CoagulationOrde red By: Dr. Marte on 12-28-2021 INR Coag (Bld) [Relative time] 2.3 {INR} [facility] Comment on above: Critical Value > 4.0 Whole blood prothrombin time Ordered By: Dr. Marte on 12-28-2021 PT Coag (Bld) [Time] 26.4 s 11.7-14.9 [facility] TAE SCREENINGon 12-08-2021 [facility] Culture, urineOrdered By: Dr Alaina Tarango on 11-26-2021 Bacteria identified Cx Nom (U) Escherichia coli [facility] Basophil percentageOrdered B y: Dr. Tarango on 11-24-2021 Basophil percentage 2.3 mg/dL 2.5-4.9 [facility] Chloride [Moles/Vol] 111 mmol/L 98-107 [facility] Glucose [Mass/Vol] 80 mg/dL 74-106 [facility] Potassium [Moles/Vol] 4.5 mmol/L 3.5-5.1 [facility] Sodium [Moles/Vol] 141 mmol/L 136-145 [facility] Laboratory - Chemistry and C hemistry - challengeOrdered By: Dr. Tarango on 11-24-2021 CO2 [Moles/Vol] 22.0 mmol/L 21.0-32.0 [facility] Urea nitrogen/Creatinine [Mass ratio] 18.7 mg/mg 12-09 [facility] No Panel InformationOrdered By: Dr. Tarango on 11-24-2021 Estimated GFR (MDRD) Amer 42 mL/min >60 [facility] Comment on above: GFR Calc Estimated GFR (MDRD) Non-Af Amer 34 mL/min >60 [facility] Comment on above: Non- GFR Calc Serum or plasma albumin scott urement (mass/volume)Ordered By: Dr. Tarango on 11-24-2021 Albumin [Mass/Vol] 3.4 g/dL 3.2-5.0 [facility] Serum or plasma calcium scott urement (mass/volume)Ordered By: Dr. Tarango on 11-24-2021 Calcium [Mass/Vol] 9.3 mg/dL 8.5-10.1 [facility] Serum or plasma creatinine m easurement (mass/volume)Ordered By: Dr. Tarango on 11-24-2021 Creatinine [Mass/Vol] 1.55 mg/dL 0.55-1.02 [facility] Comment on above: The validity of the calculated GFR & GFRAA in patients over 70 years has not been determined. Clinical correlation is essential. Serum or plasma urea nitroge n measurement (mass/volume)Ordered By: Dr. Tarango on 11-24-2021 Urea nitrogen [Mass/Vol] 29 mg/dL 7-18 [facility] Absolute lymphocyte counton 11-18-2021 Lymphocytes Auto (Unsp spec) [#/Vol] 1.02 10*3/uL 0.83-4.51 [facility] Work Phone: Activated partial thrombopla stin time (aPTT) in platelet poor plasma by coagulation aon 11-18-2021 aPTT Coag (PPP) [Time] 80.0 s 24.1-36.2 [facility] Work Phone: Basophil percentageon 2021 Basophils/100 WBC (Bld) 0.2 % 0-1 [facility] Work Phone: Chloride [Moles/Vol] 113 mmol/L 98-107 [facility] Work Phone: Eosinophils/100 WBC (Bld) 0.0 % 0-5 [facility] Work Phone: Glucose [Mass/Vol] 157 mg/dL 74-106 [facility] Work Phone: Comment on above: Fasting Glucose resu lt greater than or equal to 126 mg/dL suggests DIABETES MELLITUS per A.D.A. criteria. Neutrophils (Bld) [#/Vol] 8.5 10*3/uL 2.0-7.7 [facility] Work Phone: Neutrophils/100 WBC (Bld) 82.3 % 47-70 [facility] Work Phone: Potassium [Moles/Vol] 4.0 mmol/L 3.5-5.1 [facility] Work Phone: Sodium [Moles/Vol] 142 mmol/L 136-145 [facility] Work Phone: WBC (Bld) [#/Vol] 10.3 10*3/uL 4.4-11.0 [facility] Work Phone: Blood erythrocytes count (nu mber/volume)on 11-18-2021 RBC (Bld) [#/Vol] 4.15 10*6/uL 4.2-5.4 [facility] Work Phone: Blood hemoglobin measurement (mass/volume)on 11-18-2021 Hemoglobin (Bld) [Mass/Vol] 12.4 g/dL 12.0-15.0 [facility] Work Phone: Blood lymphocytes/100 leukoc yteson 11-18-2021 Lymphocytes/100 WBC (Bld) 9.9 % 19-41 [facility] Work Phone: Blood monocytes/100 leukocyt eson 11-18-2021 Monocytes/100 WBC (Bld) 7.2 % 0-10 [facility] Work Phone: Blood platelet mean volumeon 11-18-2021 Platelet mean volume (Bld) [Entitic vol] 11.6 fL 6.2-12.0 [facility] Work Phone: Determination of erythrocyte mean corpuscular volume (MCV)on 11-18-2021 MCV (RBC) [Entitic vol] 90.6 fL 81-99 [facility] Work Phone: Hematocrit Auto (Bld) [Volum e fraction]on 11-18-2021 Hematocrit (Bld) [Volume fraction] 37.6 % 37-47 [facility] Work Phone: INR in Blood by Coagulation assayon 11-18-2021 INR Coag (Bld) [Relative time] 2.2 {INR} [facility] Work Phone: Laboratory - Chemistry and C hemistry - challengeon 11-18-2021 CO2 [Moles/Vol] 18.0 mmol/L 21.0-32.0 [facility] Work Phone: Urea nitrogen/Creatinine [Mass ratio] 26.5 mg/mg 10-20 [facility] Work Phone: Laboratory - Coagulationon 0 11-18-2021 PT Coag (PPP) [Time] 24.0 s 11.7-14.9 [facility] Work Phone: Laboratory - Hematology and Cell countson 11-18-2021 Erythrocyte distribution width (RBC) [Entitic vol] 48.8 fL 35.1-43.9 [facility] Work Phone: Erythrocyte distribution width (RBC) [Ratio] 14.6 % 11.6-14.6 [facility] Work Phone: Immature granulocytes/100 WBC (Bld) 0.400 % 0.0-0.9 [facility] Work Phone: Comment on above: IG% - Immature Granu locytes (promyelocytes, myelocytes and metamyelocytes) > 1% indicates that a LEFT SHIFT is Present. MCH (RBC) [Entitic mass] 29.9 pg 27.0-32.0 [facility] Work Phone: Nucleated RBC/100 WBC (Bld) [Ratio] 0 % 0-5 [facility] Work Phone: MCHC Auto (RBC) [Mass/Vol]on 11-18-2021 MCHC (RBC) [Mass/Vol] 33.0 g/dL 32-36 [facility] Work Phone: No Panel Informationon 11-18 Estimated Creatinine Clearance Calc 22.09 ml/min [facility] Work Phone: Estimated GFR (MDRD) Amer 38 mL/min >60 [facility] Work Phone: Comment on above: GFR Calc Estimated GFR (MDRD) Non-Af Amer 32 mL/min >60 [facility] Work Phone: Comment on above: Non- GFR Calc Platelets bldon 11-18-2021 Platelets (Bld) [#/Vol] 190 10*3/uL 150-450 [facility] Work Phone: Serum or plasma calcium scott urement (mass/volume)on 11-18-2021 Calcium [Mass/Vol] 7.9 mg/dL 8.5-10.1 [facility] Work Phone: Serum or plasma creatinine m easurement (mass/volume)on 11-18-2021 Creatinine [Mass/Vol] 1.66 mg/dL 0.55-1.02 [facility] Work Phone: Comment on above: The validity of the calculated GFR & GFRAA in patients over 70 years has not been determined. Clinical correlation is essential. Serum or plasma urea nitroge n measurement (mass/volume)on 11-18-2021 Urea nitrogen [Mass/Vol] 44 mg/dL 7-18 [facility] Work Phone: Thin prep Papanicolaou smear with manual screeningon 11-18-2021 Thin prep Papanicolaou smear with manual screening 11 5-15 [facility] Work Phone: Basophil percentageon 2021 Basophil percentage >100 SEEN /hpf 0-5 [facility] Work Phone: Lactate [Moles/Vol] 1.0 mmol/L 0.4-2.0 [facility] Work Phone: Bilirubin Test strip Ql (U)o n 11-17-2021 Bilirubin Ql (U) Negative Negative [facility] Work Phone: Ketones Test strip Ql (U)on 11-17-2021 Ketones Ql (U) 15 mg/dl Negative [facility] Work Phone: Mucus LM Ql (Urine sed)on Mucus Ql (Urine sed) 0 SEEN /hpf [facility] Work Phone: Nitrite Test strip Ql (U)on 11-17-2021 Nitrite Ql (U) Negative Negative [facility] Work Phone: No Panel Informationon 11-17 Troponin I High Sensitivity 482 pg/mL 3.0-54.0 [facility] Work Phone: Comment on above: Critical Result(s) C alled at: 10:36:40 11/17/2021 by: Jarett Burk RN (ICU). Results read back by same. Please Note: New Test Units and Gender Specific Reference Ranges. For more information see Policy Stat Procedure [place] High Sensitivity Troponin (TNIH) and attachments. Protein Test strip Ql (U)on 11-17-2021 Protein Ql (U) 15 mg/dl Negative [facility] Work Phone: Squamous epithelial cells de tection in urine sediment by light microscopyon 11-17-2021 Epithelial cells.squamous LM Ql (Urine sed) 0-5 SEEN /hpf 5-10 [facility] Work Phone: Urine blood detectionon 10-22 RBC Ql (U) 10 /ul Negative [facility] Work Phone: RBC Ql (U) 0-5 SEEN /hpf 0-5 [facility] Work Phone: Urine clarityon 11-17-2021 Clarity (U) Sl. Cloudy Clear [facility] Work Phone: Urine color determinationon 11-17-2021 Color (U) Yellow Yellow [facility] Work Phone: Urine glucose detectionon Glucose Ql (U) Normal mg/dl Normal [facility] [facility] Work Phone: Urine leukocyte esterase det ection by dipstickon 11-17-2021 Leukocyte esterase Test strip Ql (U) 500 /ul Negative [facility] Work Phone: Urine pHon 11-17-2021 pH (U) 5.0 [pH] 5.0 - 8.0 [facility] Work Phone: Urine sediment bacteria coun t by microscopy (number/high power field)on 11-17-2021 Bacteria LM.HPF (Urine sed) [#/Area] RARE /hpf None Seen [facility] Work Phone: Urine specific gravity measu rementon 11-17-2021 Specific gravity (U) [Rel density] 1.015 1.002-1.030 [facility] Work Phone: Urobilinogen Auto test strip Ql (U)on 11-17-2021 Urobilinogen Ql (U) Normal mg/dl Normal [facility] Work Phone: Absolute lymphocyte counton 11-16-2021 Lymphocytes Auto (Unsp spec) [#/Vol] 3.63 10*3/uL 0.83-4.51 [facility] Work Phone: Basophil percentageon 2021 Basophils/100 WBC (Bld) 0.9 % 0-1 [facility] Work Phone: Bilirubin [Mass/Vol] 1.00 mg/dL 0.20-1.00 [facility] Work Phone: Comment on above: For patients on eltr ombopag therapy, use of Dimension [place] TBIL is not recommended. Chloride [Moles/Vol] 107 mmol/L 98-107 [facility] Work Phone: Eosinophils/100 WBC (Bld) 2.2 % 0-5 [facility] Work Phone: Glucose [Mass/Vol] 94 mg/dL 74-106 [facility] Work Phone: Neutrophils (Bld) [#/Vol] 6.3 10*3/uL 2.0-7.7 [facility] Work Phone: Neutrophils/100 WBC (Bld) 51.5 % 47-70 [facility] Work Phone: Potassium [Moles/Vol] 4.6 mmol/L 3.5-5.1 [facility] Work Phone: Protein [Mass/Vol] 6.4 g/dL 6.4-8.2 [facility] Work Phone: Sodium [Moles/Vol] 140 mmol/L 136-145 [facility] Work Phone: WBC (Bld) [#/Vol] 12.3 10*3/uL 4.4-11.0 [facility] Work Phone: Blood erythrocytes count (nu mber/volume)on 11-16-2021 RBC (Bld) [#/Vol] 5.36 10*6/uL 4.2-5.4 [facility] Work Phone: Blood hemoglobin measurement (mass/volume)on 11-16-2021 Hemoglobin (Bld) [Mass/Vol] 16.4 g/dL 12.0-15.0 [facility] Work Phone: Blood lymphocytes/100 leukoc yteson 11-16-2021 Lymphocytes/100 WBC (Bld) 29.6 % 19-41 [facility] Work Phone: Blood manual differential co mment interpretation (narrative result)on 11-16-2021 Manual differential comment Rafael (Bld) [Interp] SEE COMMENT [facility] Work Phone: Comment on above: MONOCYTOSIS NOTED Blood monocytes/100 leukocyt eson 11-16-2021 Monocytes/100 WBC (Bld) 14.8 % 0-10 [facility] Work Phone: Blood platelet adequacy dete ction by light microscopyon 11-16-2021 Platelets LM Ql (Bld) ADEQUATE ADEQ [facility] Work Phone: Blood platelet mean volumeon 11-16-2021 Platelet mean volume (Bld) [Entitic vol] 11.8 fL 6.2-12.0 [facility] Work Phone: Determination of erythrocyte mean corpuscular volume (MCV)on 11-16-2021 MCV (RBC) [Entitic vol] 92.7 fL 81-99 [facility] Work Phone: Hematocrit Auto (Bld) [Volum e fraction]on 11-16-2021 Hematocrit (Bld) [Volume fraction] 49.7 % 37-47 [facility] Work Phone: INR in Blood by Coagulation assayon 11-16-2021 INR Coag (Bld) [Relative time] 1.5 {INR} [facility] Work Phone: Laboratory - Chemistry and C hemistry - challengeon 11-16-2021 ALP [Catalytic activity/Vol] 89 U/L 45-117 [facility] Work Phone: ALT [Catalytic activity/Vol] 25 U/L 13-56 [facility] Work Phone: CO2 [Moles/Vol] 23.0 mmol/L 21.0-32.0 [facility] Work Phone: Globulin (S) [Mass/Vol] 3.3 g/dL 2.2-4.2 [facility] Work Phone: Urea nitrogen/Creatinine [Mass ratio] 14.1 mg/mg 10-20 [facility] Work Phone: Laboratory - Coagulationon 0 11-16-2021 PT Coag (PPP) [Time] 17.8 s 11.7-14.9 [facility] Work Phone: Laboratory - Hematology and Cell countson 11-16-2021 Anisocytosis Ql (Bld) RARE [facility] Work Phone: Erythrocyte distribution width (RBC) [Entitic vol] 51.6 fL 35.1-43.9 [facility] Work Phone: [phone] Erythrocyte distribution width (RBC) [Ratio] 15.1 % 11.6-14.6 [facility] Work Phone: [phone] Immature granulocytes/100 WBC (Bld) 1.000 % 0.0-0.9 [facility] Work Phone: Comment on above: IG% - Immature Granu locytes (promyelocytes, myelocytes and metamyelocytes) > 1% indicates that a LEFT SHIFT is Present. MCH (RBC) [Entitic mass] 30.6 pg 27.0-32.0 [facility] Work Phone: [phone] Nucleated RBC/100 WBC (Bld) [Ratio] 0 % 0-5 [facility] Work Phone: MCHC Auto (RBC) [Mass/Vol]on 11-16-2021 MCHC (RBC) [Mass/Vol] 33.0 g/dL 32-36 [facility] Work Phone: Macrocytes detectionon 11-16 Macrocytes Ql (Bld) RARE [facility] Work Phone: No Panel Informationon 11-16 Estimated Creatinine Clearance Calc 13.63 ml/min [facility] Work Phone: Estimated GFR (MDRD) Amer 22 mL/min >60 [facility] Work Phone: Comment on above: GFR Calc Estimated GFR (MDRD) Non-Af Amer 18 mL/min >60 [facility] Work Phone: Comment on above: Non- GFR Calc Troponin I High Sensitivity 619 pg/mL 3.0-54.0 [facility] Work Phone: Comment on above: Critical Result(s) C alled at: 23:23:33 11/16/2021 by: BALDO BARRETO TO DONALD STOKES. Results read back by same. Please Note: New Test Units and Gender Specific Reference Ranges. For more information see Policy Stat Procedure [place] High Sensitivity Troponin (TNIH) and attachments. Platelets bldon 11-16-2021 Platelets (Bld) [#/Vol] 220 10*3/uL 150-450 [facility] Work Phone: RBC morphologyon 11-16-2021 RBC morphology finding Nom (Bld) N CHROM NORMAL NORM C&C [facility] Work Phone: Review by pathologiston 10-22 Pathologist review Rafael (Unsp spec) [Interp] June foll [facility] Work Phone: Pathologist review Rafael (Unsp spec) [Interp] Reviewed [facility] Work Phone: Comment on above: Previous reported re sult: June rubi Edited by: RGOOD on 11/17/21:1214Leukocytosis. PolycythemiaClinical correlation necessary.Alber Mccracken M.D. 11/17/21 AMENDED REPORT 11/17/21 1214 PATH REV previously reported as: June rubi Serum or plasma albumin scott urement (mass/volume)on 11-16-2021 Albumin [Mass/Vol] 3.1 g/dL 3.2-5.0 [facility] Work Phone: Serum or plasma albumin/glob ulin mass ratioon 11-16-2021 Albumin/Globulin [Mass ratio] 0.9 {ratio} 0.9-2.4 [facility] Work Phone: Serum or plasma calcium scott urement (mass/volume)on 11-16-2021 Calcium [Mass/Vol] 9.9 mg/dL 8.5-10.[address] [facility] r [facility] Work Phone: Serum or plasma creatinine m easurement (mass/volume)on 11-16-2021 Creatinine [Mass/Vol] 2.69 mg/dL 0.55-1.02 [facility] ster [facility] Work Phone: Comment on above: The validity of the calculated GFR & GFRAA in patients over 70 years has not been determined. Clinical correlation is essential. Serum or plasma urea nitroge n measurement (mass/volume)on 11-16-2021 Urea nitrogen [Mass/Vol] 38 mg/dL 7-18 [facility] Work Phone: Thin prep Papanicolaou smear with manual screeningon 11-16-2021 Thin prep Papanicolaou smear with manual screening 29 U/L 15-37 [facility] Work Phone: Thin prep Papanicolaou smear with manual screening 10 5-15 [facility] Work Phone: Laboratory - Coagulationon 0 11-02-2021 INR Coag (Bld) [Relative time] 2.6 {INR} [facility] Work Phone: Comment on above: Critical Value > 4.0 Whole blood prothrombin time on 11-02-2021 PT Coag (Bld) [Time] 30.3 s 11.7-14.9 [facility] Work Phone: INR in Blood by Coagulation assayon 09-28-2021 INR Coag (Bld) [Relative time] 2.1 {INR} [facility] Work Phone: Laboratory - Coagulationon 0 09-28-2021 PT Coag (PPP) [Time] 23.2 s 11.7-14.9 [facility] Work Phone: Laboratory - Coagulationon 0 08-30-2021 INR Coag (Bld) [Relative time] 2.2 {INR} [facility] Work Phone: Comment on above: Critical Value > 4.0 Whole blood prothrombin time on 08-30-2021 PT Coag (Bld) [Time] 26.3 s 11.7-14.9 [facility] Work Phone: Laboratory - Coagulationon 0 07-26-2021 INR Coag (Bld) [Relative time] 2.7 {INR} [facility] Work Phone: Comment on above: Critical Value > 4.0 Whole blood prothrombin time on 07-26-2021 PT Coag (Bld) [Time] 30.6 s 11.7-14.9 [facility] Work Phone: Laboratory - Coagulationon 0 06-25-2021 INR Coag (Bld) [Relative time] 2.2 {INR} [facility] Work Phone: Comment on above: Critical Value > 4.0 Whole blood prothrombin time on 06-25-2021 PT Coag (Bld) [Time] 26.3 s 11.7-14.9 [facility] Work Phone: Laboratory - Coagulationon 0 05-27-2021 INR Coag (Bld) [Relative time] 2.7 {INR} [facility] Work Phone: Comment on above: Critical Value > 4.0 Whole blood prothrombin time on 05-27-2021 PT Coag (Bld) [Time] 31.5 s 11.7-14.9 [facility] Work Phone: Laboratory - Coagulationon 0 04-29-2021 INR Coag (Bld) [Relative time] 2.3 {INR} [facility] Work Phone: Comment on above: Critical Value > 4.0 Whole blood prothrombin time on 04-29-2021 PT Coag (Bld) [Time] 27.2 s 11.7-14.9 [facility] Work Phone: Laboratory - Coagulationon 0 03-31-2021 INR Coag (Bld) [Relative time] 2.4 {INR} [facility] Work Phone: Comment on above: Critical Value > 4.0 Whole blood prothrombin time on 03-31-2021 PT Coag (Bld) [Time] 27.6 s 11.9-14.4 [facility] Work Phone: Laboratory - Coagulationon 0 03-02-2021 INR Coag (Bld) [Relative time] 2.0 {INR} [facility] Work Phone: Comment on above: Critical Value > 4.0 Whole blood prothrombin time on 03-02-2021 PT Coag (Bld) [Time] 23.6 s 11.9-14.4 [facility] Work Phone: Laboratory - Coagulationon 1 04-04-2020 INR Coag (Bld) [Relative time] 2.0 {INR} [facility] Work Phone: Comment on above: Critical Value > 4.0 Whole blood prothrombin time on 02-01-2021 PT Coag (Bld) [Time] 23.0 s 11.9-14.4 [facility] Work Phone: CBCon 05-08-2020 Erythrocyte distribution width (RBC) [Ratio] 15.7 % High 11.5 - 14.5 [facility] Comment on above: Performed By: #### C BC #### [address] [id number] Hematocrit (Bld) [Volume fraction] 29.4 % Low 36.0 - 46.0 [facility] Comment on above: Performed By: #### C BC #### [address] [id number] Hemoglobin (Bld) [Mass/Vol] 9.5 g/dL Low 12.0 - 16.0 [facility] Comment on above: Performed By: #### C BC #### [address] [id number] MCHC (RBC) [Mass/Vol] 32.3 g/dL Normal 32.0 - 36.0 [facility] Comment on above: Performed By: #### C BC #### [address] [id number] MCV (RBC) [Entitic vol] 92 fL Normal 80 - 100 [facility] Comment on above: Performed By: #### C BC #### [address] [id number] Platelets (Bld) [#/Vol] 292 10*3/uL Normal 150 - 450 [facility] Comment on above: Performed By: #### C BC #### [address] [id number] RBC (Bld) [#/Vol] 3.21 x10E12/L Low 4.00 - 5.20 [facility] Comment on above: Performed By: #### C BC #### [address] [id number] WBC (Bld) [#/Vol] 16.2 10*3/uL High 4.4 - 11.3 [facility] Comment on above: Performed By: #### C BC #### [address] [id number] COMPREHENSIVE PANELon 2020 Albumin [Mass/Vol] 2.8 g/dL Low 3.4 - 5.0 [facility] Comment on above: Performed By: #### C A #### [address] [id number] ALP [Catalytic activity/Vol] 85 U/L Normal 33 - 136 [facility] Comment on above: Performed By: #### C A #### [address] [id number] ALT [Catalytic activity/Vol] 28 U/L Normal 7 - 45 [facility] Comment on above: Result Comment: Liz ents treated with Sulfasalazine may generate falsely decreased results for ALT. Performed By: #### C A #### [address] [id number] Anion gap [Moles/Vol] 13 mmol/L Normal 10 - 20 [facility] Comment on above: Performed By: #### C A #### [address] [id number] AST [Catalytic activity/Vol] 17 U/L Normal 9 - 39 [facility] Comment on above: Performed By: #### C A #### [address] [id number] Bilirubin [Mass/Vol] 0.8 mg/dL Normal 0.0 - 1.2 [facility] Comment on above: Performed By: #### C A #### [address] [id number] Calcium [Mass/Vol] 9.0 mg/dL Normal 8.6 - 10.3 [facility] Comment on above: Performed By: #### C A #### [address] [id number] Chloride [Moles/Vol] 101 mmol/L Normal 98 - 107 [facility] Comment on above: Performed By: #### C A #### [address] [id number] Creatinine [Mass/Vol] 1.87 mg/dL High 0.50 - 1.05 [facility] Comment on above: Performed By: #### C A #### [address] [id number] GFR- AM. 31 mL/min/1.73m2 Abnormal >60 [facility] Comment on above: Result Comment: CALC ULATIONS OF ESTIMATED GFR ARE PERFORMED USING THE MDRD STUDY EQUATION FOR THE IDMS-TRACEABLE CREATININE METHODS. CLIN CHEM 2007;53:766-72 Performed By: #### C A #### [address] [id number] GFR-NON AM. 26 mL/min/1.73m2 Abnormal >60 [facility] Comment on above: Performed By: #### C A #### [address] [id number] Glucose [Mass/Vol] 92 mg/dL Normal 74 - 99 [facility] Comment on above: Performed By: #### C A #### [address] [id number] HCO3 (Bld) [Moles/Vol] 30 mmol/L Normal 21 - 32 [facility] Comment on above: Performed By: #### C A #### [address] [id number] Potassium [Moles/Vol] 4.0 mmol/L Normal 3.5 - 5.3 [facility] Comment on above: Performed By: #### C A #### [address] [id number] Protein [Mass/Vol] 4.8 g/dL Low 6.4 - 8.2 [facility] Comment on above: Performed By: #### C A #### [address] [id number] Sodium [Moles/Vol] 140 mmol/L Normal 136 - 145 [facility] Comment on above: Performed By: #### C A #### [address] [id number] Urea nitrogen [Mass/Vol] 50 mg/dL High 6 - 23 [facility] Comment on above: Performed By: #### C A #### [address] [id number] Daily Progress Note-Endocrin litzy 05-08-2020 Daily Progress [...] reviewed Objective Data: Objective Information: T PRBPSpO2 Value36.96492810/9499% Date/Time05/08 14: 14: 14: 14: 14:14 Range(35.8C - 37.6C ) (71 - 80 ) (18 - 20 ) (143 - 174 )/ (86 - 99 ) (95% - 99% ) Highest temp of 37.6 C was recorded at 05/08 7:55 Pain reported at 05/08 9:31: 0 = None ---- Intake and Output ----- Mn/Dy/Year TimeIntakeOutputNet May 08, 2020 2:00 [id number] May 08, 2020 6:00 [id number] May 07, 2020 10:00 [id number] The Intake and Output Totals for the last 24 hours are: IntakeOutputNet [id number] Physical Exam by System: Constitutional: Well developed, [...] laboratory results: Comprehensive Metabolic Panel Trending View [id number] 05:22:00 07-May-2020 05:42:00 Glucose, Serum92 86 NA140 136 K4.0 4.0 CL101 99 Bicarbonate, Serum30 27 Anion Gap, Serum13 14 BUN50 H 55 H CREAT1.87 H 1.95 H GFR-Non Cpihptol73 A 25 A GFR- Leqkpftz11 A 30 A Calcium, Serum9.0 9.0 ALB2.8 [...] Updated: 08-May-2020 16:01 by Alexander Gregory) Normal [facility] Daily Progress Note-General Internal Medicineon 05-08-2020 Daily Progress Note-General Internal Medicine Service: General Internal Medicine Subjective Data: LINDA PERALTA is a 75 year old Female who is Hospital Day # 7. And examined, denies any fever, chills, chest pain, shortness of breath. Feels much improved. Rest of the ROS is negative. Objective Data: Objective Information: T PRBPSpO2 Value37.22501462/9699% Date/Time05/08 7: 7: 7: 7: 7:55 Range(35.8C - 37.6C ) (71 - 82 ) (18 - 20 ) (131 - 174 )/ (86 - 99 ) (95% - 99% ) Highest temp of 37.6 C was recorded at 05/08 7:55 Pain reported at 05/08 9:31: 0 = None ---- Intake and Output ----- Mn/Dy/Year TimeIntakeOutputNet May 08, 2020 6:00 [id number] May 07, 2020 10:00 [id number] May 07, 2020 2:00 [id number] The Intake and Output Totals for the last 24 hours are: IntakeOutputNet [id number] Physical Exam by System: Constitutional: Well developed, [...] Last Updated: 08-May-2020 11:38 by Baldo South) Normal [facility] Daily Progress Note-Infectio us Diseaseon 05-08-2020 Daily Progress Note-Infectious Disease Service: Infectious Disease History of Present Illness: History Present Illness: HPI: Possible aspiration pneumonia Recent UTI with Citrobacter No fevers chills sweats minimal cold No shortness of breath cough no diarrhea Subjective Data: LINDA PERALTA is a 75 year old Female who is Hospital Day # 7. Objective Data: Objective Information: T PRBPSpO2 Value36.44512378/9499% Date/Time05/08 14: 14: 14: 14: 14:14 Range(35.8C - 37.6C ) (71 - 80 ) (18 - 20 ) (143 - 174 )/ (86 - 99 ) (95% - 99% ) Highest temp of 37.6 C was recorded at 05/08 7:55 Pain reported at 05/08 9:31: 0 = None ---- Intake and Output ----- Mn/Dy/Year TimeIntakeOutputNet May 08, 2020 2:00 [id number] May 08, 2020 6:00 [id number] May 07, 2020 10:00 [id number] The Intake and Output Totals for the last 24 hours are: IntakeOutputNet [id number] T PRBPSpO2 Value36.79853769/9499% Date/Time05/08 14: 14: 14: 14: 14:14 Range(35.8C [...] RA Area A4C: 16.4 cm2 RA Major [place] A4C: 5.0 cm M-MODE MEASUREMENTS: Normal Ranges: [...] 1.2 m/s (0.6-0.9m/s) PV Max P.2 mmHg [id number] Tremayne Mcleod MD Electronically signed on 05/02/2020 [...] Last Updated: 08-May-2020 14:34 by Alberto Allred) [facility] [address] Daily Progress Note-Nephrolo gyon 05-08-2020 Daily Progress Note-Nephrology Service: Nephrology Subjective Data: LINDA PERALTA is a 75 year old Female who is Hospital Day # 7. renal function improving, pt feeling better. Objective Data: Objective Information: T PRBPSpO2 Value37.18802295/9699% Date/Time05/08 7: 7: 7: 7: 7:55 Range(35.8C - 37.6C ) (71 - 82 ) (18 - 20 ) (131 - 174 )/ (86 - 99 ) (95% - 99% ) Highest temp of 37.6 C was recorded at 05/08 7:55 Pain reported at 05/08 9:31: 0 = None ---- Intake and Output ----- [facility]Dy[facility] May 08, 2020 6:00 [id number] May 07, 2020 10:00 [id number] May 07, 2020 2:00 [id number] The Intake and Output Totals for the last 24 hours are: IntakeOutputNet [id number] Constitutional: Alert, in no acute distress HEENT: [...] partial nephrectomy, DVT/PE who was initially at [place] for AMS, hypercalcemia and hypotension now transferred here. 1. ANGELA on CKD: previously hypotensive at [place], now hypertensive, also CRS as pt is [...] to f/u in 2 weeks w/ her zinc plater in [place] Electronic Signatures: Leigh Billy) (Signed 08-May-2020 13:43) Authored: Service, Subjective Data, Objective Data, Assessment and Plan, Note Completion Last Updated: 08-May-2020 13:43 by Leigh Billy) [facility] [address] Daily Progress Note-Urologyo n 05-08-2020 Daily Progress Note-Urology Service: Urology Subjective Data: LINDA PERALTA is a 75 year old Female who is Hospital Day # 7. Urology progress note for 05/08/20, Reviewed with nursing Jarrell catheter removed yesterday and so far patient [...] reviewed. Objective Data: Objective Information: T PRBPSpO2 Value36.75006803/9499% Date/Time05/08 14: 14: 14: 14: 14:14 Range(35.8C - 37.6C ) (71 - 80 ) (18 - 20 ) (143 - 174 )/ (86 - 99 ) (95% - 99% ) Highest temp of 37.6 C was recorded at 05/08 7:55 Pain reported at 05/08 9:31: 0 = None ---- Intake and Output ----- Mn/Dy/Year TimeIntakeOutputNet May 08, 2020 2:00 [id number] May 08, 2020 6:00 [id number] May 07, 2020 10:00 [id number] The Intake and Output Totals for the last 24 hours are: IntakeOutputNet [id number] Recent Lab Results: Results: CBC: 05/08/2020 05:22 [...] by Alvin Sawyer) [facility] [address] Order Reconciliationon 05-08 Order Reconciliation Page 1 [...] 1 spray(s) Each Nostril DailyNotes from Pharmacy: [facility] 02-May-2020 02:08 Fluticasone 50 microgram/ Nasal Inhalation [...] Injectable DOSE = 0.5 mL IntraVenous Push OnceCa.135033 mL/Kg/DOSE x 74.5 Kg = 0.5 mL/Dose [...] Change in mental status;E87.8 Electrolyte imbalance Discharge Provider, Baldo South Discharge Disposition : Rehab Facility or Unit [...] be shared with your follow-up providers (doctor, assembler crimper, physical therapist, etc.). Guidelines for a Healthy [...] be shared with your follow-up providers (doctor, assembler crimper, physical therapist, etc.). dupilumab 300 milligram(s) subcutaneous [...] 1 tab(s) orally once a day Normal [facility] CBCon 05-07-2020 Erythrocyte distribution width (RBC) [Ratio] 15.5 % High 11.5 - 14.5 [facility] Comment on above: Performed By: #### C BC ####[facility] [place], [place] [id number] Hematocrit (Bld) [Volume fraction] 30.4 % Low 36.0 - 46.0 [facility] Comment on above: Performed By: #### C BC ####[facility] [place], [place] [id number] Hemoglobin (Bld) [Mass/Vol] 9.8 g/dL Low 12.0 - 16.0 [facility] Comment on above: Performed By: #### C BC ####[facility] [place], [place] [id number] MCHC (RBC) [Mass/Vol] 32.2 g/dL Normal 32.0 - 36.0 [facility] Comment on above: Performed By: #### C BC ####[facility] [place], [place] [id number] MCV (RBC) [Entitic vol] 92 fL Normal 80 - 100 [facility] Comment on above: Performed By: #### C BC ####[facility] [place], [place] [id number] Platelets (Bld) [#/Vol] 279 10*3/uL Normal 150 - 450 [facility] Comment on above: Performed By: #### C BC ####[facility] [place], [place] [id number] RBC (Bld) [#/Vol] 3.31 x10E12/L Low 4.00 - 5.20 [facility] Comment on above: Performed By: #### C BC ####[facility] [place], [place] [id number] WBC (Bld) [#/Vol] 18.5 10*3/uL High 4.4 - 11.3 [facility] Comment on above: Performed By: #### C BC ####[facility] [place], [place] [id number] COMPREHENSIVE PANELon 2020 Albumin [Mass/Vol] 2.9 g/dL Low 3.4 - 5.0 [facility] Comment on above: Performed By: #### C MP #### [facility] [address] [place], [place] [id number] ALP [Catalytic activity/Vol] 80 U/L Normal 33 - 136 [facility] Comment on above: Performed By: #### C MP #### [address] [id number] ALT [Catalytic activity/Vol] 31 U/L Normal 7 - 45 [facility] [facility] Comment on above: Result Comment: Liz ents treated with Sulfasalazine may generate falsely decreased results for ALT. Performed By: #### C MP #### [address] [id number] Anion gap [Moles/Vol] 14 mmol/L Normal 10 - 20 [facility] Comment on above: Performed By: #### C MP #### [address] [id number] AST [Catalytic activity/Vol] 20 U/L Normal 9 - 39 [facility] Comment on above: Performed By: #### C MP #### [address] [id number] Bilirubin [Mass/Vol] 0.9 mg/dL Normal 0.0 - 1.2 [facility] Comment on above: Performed By: #### C MP #### [address] [id number] Calcium [Mass/Vol] 9.0 mg/dL Normal 8.6 - 10.3 [facility] Comment on above: Performed By: #### C MP #### [address] [id number] Chloride [Moles/Vol] 99 mmol/L Normal 98 - 107 [facility] Comment on above: Performed By: #### C MP #### [address] [id number] Creatinine [Mass/Vol] 1.95 mg/dL High 0.50 - 1.05 [facility] Comment on above: Performed By: #### C MP #### [address] [id number] GFR- AM. 30 mL/min/1.73m2 Abnormal >60 [facility] Comment on above: Result Comment: CALC ULATIONS OF ESTIMATED GFR ARE PERFORMED USING THE MDRD STUDY EQUATION FOR THE IDMS-TRACEABLE CREATININE METHODS. CLIN CHEM 2007;53:766-72 Performed By: #### C MP #### [address] [id number] GFR-NON AM. 25 mL/min/1.73m2 Abnormal >60 [facility] Comment on above: Performed By: #### C MP #### [address] [id number] Glucose [Mass/Vol] 86 mg/dL Normal 74 - 99 [facility] Comment on above: Performed By: #### C MP #### [address] [id number] HCO3 (Bld) [Moles/Vol] 27 mmol/L Normal 21 - 32 [facility] Comment on above: Performed By: #### C MP #### [address] [id number] Potassium [Moles/Vol] 4.0 mmol/L Normal 3.5 - 5.3 [facility] Comment on above: Performed By: #### C MP #### [address] [id number] Protein [Mass/Vol] 5.0 g/dL Low 6.4 - 8.2 [facility] Comment on above: Performed By: #### C MP #### [address] [id number] Sodium [Moles/Vol] 136 mmol/L Normal 136 - 145 [facility] Comment on above: Performed By: #### C MP #### [address] [id number] Urea nitrogen [Mass/Vol] 55 mg/dL High 6 - 23 [facility] Comment on above: Performed By: #### C MP #### [address] [id number] Daily Progress Note-General Internal Medicineon 05-07-2020 Daily Progress Note-General Internal Medicine Service: General Internal Medicine Subjective Data: LINDA PERALTA is a 75 year old Female who is Hospital Day # 6. Seen and examined, denies any fever, chills, chest pain, shortness of breath. Rest of the ROS is negative. Objective Data: Objective Information: T PRBPSpO2 Value36.91847573/8697% Date/Time05/07 14: 14: 14: 14: 14:03 Range(36C - 36.8C ) (77 - 85 ) (18 - 20 ) (125 - 170 )/ (80 - 98 ) (94% - 97% ) Pain reported at 05/07 12:04: 0 = None ---- Intake and Output ----- Mn/Dy/Year TimeIntakeOutputNet May 07, 2020 2:00 [id number] May 06, 2020 10:00 [id number] The Intake and Output Totals for the last 24 hours are: IntakeOutputNet [id number] Physical Exam by System: Constitutional: Well developed, [...] by Baldo South) [facility] Daily Progress Note-Infectio us Diseaseon 05-07-2020 Daily Progress Note-Infectious Disease Service: Infectious Disease History of Present Illness: History Present Illness: HPI: Possible aspiration pneumonia Recent UTI with Citrobacter No fevers chills sweats minimal cold Subjective Data: LINDA PERALTA is a 75 year old Female who is Hospital Day # 6. Objective Data: Objective Information: T PRBPSpO2 Value36.13392581/9897% Date/Time05/07 8: 8: 8: 8: 8:01 Range(36C - 36.8C ) (77 - 85 ) (18 - 20 ) (125 - 170 )/ (80 - 98 ) (94% - 98% ) Pain reported at 05/07 12:04: 0 = None ---- Intake and Output ----- Mn/Dy/Year TimeIntakeOutputNet May 06, 2020 10:00 [id number] May 06, 2020 2:00 [id number] The Intake and Output Totals for the last 24 hours are: IntakeOutputNet [id number] T PRBPSpO2 Value36.83548996/9897% Date/Time05/07 8: 8: 8: 8: 8:01 Range(36C [...] RA Area A4C: 16.4 cm2 RA Major [place] A4C: 5.0 cm M-MODE MEASUREMENTS: Normal Ranges: [...] 1.2 m/s (0.6-0.9m/s) PV Max P.2 mmHg [id number] Tremayne Mcleod MD Electronically signed on 05/02/2020 [...] by Alberto Allred) [facility] Daily Progress Note-Nephrolo gyon 05-07-2020 Daily Progress Note-Nephrology Service: Nephrology Subjective Data: LINDA PERALTA is a 75 year old Female who is Hospital Day # 6. renal function continues to slowly improve, uric acid and phos improving as well. Objective Data: Objective Information: T PRBPSpO2 Value36.83430608/9897% Date/Time05/07 8: 8: 8: 8: 8:01 Range(36C - 36.8C ) (77 - 85 ) (18 - 20 ) (125 - 170 )/ (80 - 98 ) (94% - 98% ) Pain reported at 05/06 23:56: 0 = None ---- Intake and Output ----- Mn/Dy/[facility] May 06, 2020 10:00 [id number] May 06, 2020 2:00 [id number] The Intake and Output Totals for the last 24 hours are: [facility] [id number] Constitutional: Alert, in no acute distress HEENT: [...] partial nephrectomy, DVT/PE who was initially at [facility] for AMS, hypercalcemia and hypotension now transferred here. 1. ANGELA on CKD: previously hypotensive at [facility], now hypertensive, also CRS as pt is [...] Last Updated: 07-May-2020 11:30 by Leigh Billy) [facility] Daily Progress Note-Neurolog yon 05-07-2020 Daily Progress [...] better. Objective Data: Objective Information: T PRBPSpO2 Value36.98392608/8697% Date/Time3/18 19:143 19:143 19:143 19: 19:14 Range(36C - 36.6C ) (77 - 85 ) (20 - 20 ) (131 - 170 )/ (80 - 98 ) (94% - 97% ) Pain reported at 05/07 12:04: 0 = None ---- Intake and Output ----- Mn/Dy/Year TimeIntakeOutputUn[facility] May 07, 2020 2:00 [id number] May 06, 2020 10:00 [id number] The Intake and Output Totals for the last 24 hours are: IntakeOutputNet [id number] Physical Exam by System: Neurological: The patient [...] kidney to her brother Sarcoidosis History of Plumas's disease Gout 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 Hyperlipidemia Atopic [...] Last Updated: 07-May-2020 19:58 by Vicky Boyd) Normal [facility] Daily Progress Note-Neurology Service: Neurology Subjective Data: [...] better. Objective Data: Objective Information: T PRBPSpO2 Value36.25393689/8194% Date/Time05/06 19: 19: 19: 19: 19:32 Range(36.6C - 36.8C ) (71 - 85 ) (18 - 18 ) (125 - 162 )/ (81 - 96 ) (88% - 99% ) Pain reported at 05/06 11:17: 0 = None ---- Intake and Output ----- Mn/Dy/Year TimeIntakeOutputNet May 06, 2020 10:00 [id number] May 06, 2020 2:00 [id number] The Intake and Output Totals for the last 24 hours are: IntakeOutputNet [id number] Physical Exam by System: Neurological: The patient [...] by Vicky Boyd) [facility] Daily Progress Note-Urologyo n 05-07-2020 Daily Progress Note-Urology Service: Urology Subjective Data: LINDA PERALTA is a 75 year old Female who is Hospital Day # 6. Urology progress note for , 05/07/20, Jarrell catheter removed this morning, patient is not [...] generally feels better today Urine clear per Jarrell catheter Serum creatinine elevated but seems stable at current level Discharge planning apparently in progress possible transfer to rehabilitation Therefore we will proceed with a voiding trial currently, discontinue Jarrell catheter early tomorrow morning with a voiding trial and observe clinically Otherwise continue supportive care Additional medical and historical objective data reviewed and listed below Urology progress note for Monday05/05/20, Jarrell catheter in place draining yellow clear urine Today's sitting at the bedside, still feels weak somewhat lethargic Renal insufficiency persists serum creatinine 2.28 wBC count elevated at 19,900 Currently off antibiotics and observation as per infectious disease Still planning to wait for some reasonable improvement in overall medical status ambulation and mobility and then planning to remove Jarrell catheter for a voiding trial Otherwise continue supportive care Additional medical and historical objective data reviewed and listed below. Objective Data: Objective Information: T PRBPSpO2 Value36.48223316/8697% Date/Time05/07 14: 14: 14: 14: 14:03 Range(36C - 36.8C ) (77 - 85 ) (18 - 20 ) (125 - 170 )/ (80 - 98 ) (94% - 97% ) Pain reported at 05/07 12:04: 0 = None ---- Intake and Output ----- Mn/Dy/ [facility] May 07, 2020 2:00 [id number] May 06, 2020 10:00 [id number] The Intake and Output Totals for the last 24 hours are: IntakeOutputNet [id number] T PRBPSpO2 Value36.46336506/8697% Date/Time05/07 14: 14: 14: 14: 14:03 Range(36C - 36.8C ) (77 - 85 ) (18 - 20 ) (125 - 170 )/ (80 - 98 ) (94% - 97% ) Pain reported at 05/07 12:04: 0 = None ---- Intake and Output ----- Mn/Dy/ TimeUniversity [facility] May 07, 2020 2:00 [id number] May 06, 2020 10:00 [id number] The Intake and Output Totals for the last 24 hours are: IntakeOutputNet [id number] ---Intake--- Enteral - Oral PO Fluid/Feed (oral): [...] 8.1 H Basic Metabolic Panel Trending View [id number] 16:58:00 06-May-2020 05:38:00 Glucose, Kcayl864 H 100 H NA138 141 K3.9 2.9 LL CL97 L 100 Bicarbonate, Serum31 32 Anion Gap, Serum14 12 BUN57 H 62 H CREAT2.05 H 2.15 H GFR-Non Khsvtriw71 A 22 A GFR- Kdacbedl19 A 27 A Calcium, Serum9.0 9.0 Lab [...] Updated: 07-May-2020 16:37 by Alvin Sawyer) Normal [facility] PHOSPHORUSon 05-07-2020 Phosphate [Mass/Vol] 3.3 mg/dL Normal 2.5 - 4.9 [facility] Comment on above: Result Comment: The performance characteristics of phosphorus testing in heparinized plasma have been validated by the individual laboratory site where testing is performed. Testing on heparinized plasma is not approved by the FDA; however, such approval is not necessary. Performed By: #### C A #### [address] [id number] PTH RELATED PROTEINon 2020 Protein [Mass/Vol] 0.5 pmol/L Normal < or = 4.2 [facility] Comment on above: Result Comment: ---- ADDITIONAL INFORMATION This test was developed and its performance characteristics determined by [facility] in a manner consistent with CLIA requirements. This test has not been cleared or approved by the U.S. Food and Drug Administration. Test Performed by: [facility] [place] [address] Speech Writer: Sunny Triplett M.D. Ph.D.; CLIA# [id number] Performed By: #### P R12 #### [facility] [address] [place] [address] Protein [Mass/Vol] 0.8 pmol/L Normal < or = 4.2 [facility] Comment on above: Result Comment: ---- ADDITIONAL INFORMATION This test was developed and its performance characteristics determined by [facility] in a manner consistent with CLIA requirements. This test has not been cleared or approved by the U.S. Food and Drug Administration. Test Performed by: [facility] [address], [place] [address] Speech Writer: Sunny Triplett M.D. Ph.D.; CLIA# [id number] Performed By: #### C BC #### [address] [id number] URIC ACIDon 05-07-2020 Urate [Mass/Vol] 8.1 mg/dL High 2.3 - 6.7 [facility] Comment on above: Result Comment: Nadia puncture immediately after or during the administration of Metamizole may lead to falsely low results. Testing should be performed immediately prior to Metamizole dosing. Performed By: #### C BC #### [address] [id number] BASIC METABOLIC PANELon 04-20 Anion gap [Moles/Vol] 14 mmol/L Normal 10 - 20 [facility] Comment on above: Performed By: #### C A #### [address] [id number] Calcium [Mass/Vol] 9.0 mg/dL Normal 8.6 - 10.3 [facility] Comment on above: Performed By: #### C A #### [address] [id number] Chloride [Moles/Vol] 97 mmol/L Low 98 - 107 [facility] Comment on above: Performed By: #### C A #### [address] [id number] Creatinine [Mass/Vol] 2.05 mg/dL High 0.50 - 1.05 [facility] Comment on above: Performed By: #### C A #### [address] [id number] GFR- AM. 28 mL/min/1.73m2 Abnormal >60 [facility] Comment on above: Result Comment: CALC ULATIONS OF ESTIMATED GFR ARE PERFORMED USING THE MDRD STUDY EQUATION FOR THE IDMS-TRACEABLE CREATININE METHODS. CLIN CHEM 2007;53:766-72 Performed By: #### C A #### [address] [id number] GFR-NON AM. 23 mL/min/1.73m2 Abnormal >60 [facility] Comment on above: Performed By: #### C A #### [address] [id number] Glucose [Mass/Vol] 124 mg/dL High 74 - 99 [facility] Comment on above: Performed By: #### C A #### [address] [id number] HCO3 (Bld) [Moles/Vol] 31 mmol/L Normal 21 - 32 [facility] Comment on above: Performed By: #### C A #### [address] [id number] Potassium [Moles/Vol] 3.9 mmol/L Normal 3.5 - 5.3 [facility] Comment on above: Performed By: #### C A #### [address] [id number] Sodium [Moles/Vol] 138 mmol/L Normal 136 - 145 [facility] Comment on above: Performed By: #### C A #### [address] [id number] Urea nitrogen [Mass/Vol] 57 mg/dL High 6 - 23 [facility] Comment on above: Performed By: #### C A #### [address] [id number] Anion gap [Moles/Vol] 12 mmol/L Normal 10 - 20 [facility] Comment on above: Order Comment: Aaron Mercado, 05/06/2020 06:54 Performed By: #### B MP ####[address] [id number] Calcium [Mass/Vol] 9.0 mg/dL Normal 8.6 - 10.3 [facility] Comment on above: Order Comment: Walker d- RB to [place], 05/06/2020 06:54 Performed By: #### B MP ####[address] [id number] Chloride [Moles/Vol] 100 mmol/L Normal 98 - 107 [facility] Comment on above: Order Comment: Walker d- RB to [place], 05/06/2020 06:54 Performed By: #### B MP ####[address] [id number] Creatinine [Mass/Vol] 2.15 mg/dL High 0.50 - 1.05 [facility] Comment on above: Order Comment: Walker d- RB to [place], 05/06/2020 06:54 Performed By: #### B MP ####[address] [id number] GFR- AM. 27 mL/min/1.73m2 Abnormal >60 [facility] Comment on above: Order Comment: Walker d- RB to [place], 05/06/2020 06:54 Result Comment: CALC ULATIONS OF ESTIMATED GFR ARE PERFORMED USING THE MDRD STUDY EQUATION FOR THE IDMS-TRACEABLE CREATININE METHODS. CLIN CHEM 2007;53:766-72 Performed By: #### B MP ####[address] [id number] GFR-NON AM. 22 mL/min/1.73m2 Abnormal >60 [facility] Comment on above: Order Comment: Walker d- RB to [place], 05/06/2020 06:54 Performed By: #### B MP ####[address] [id number] Glucose [Mass/Vol] 100 mg/dL High 74 - 99 [facility] Comment on above: Order Comment: Walker d- RB to [place], 05/06/2020 06:54 Performed By: #### B MP ####[address] [id number] HCO3 (Bld) [Moles/Vol] 32 mmol/L Normal 21 - 32 [facility] Comment on above: Order Comment: Walker d- RB to [place], 05/06/2020 06:54 Performed By: #### B MP ####[facility] [place], [place] [id number] Potassium [Moles/Vol] 2.9 mmol/L Critically low 3.5 - 5.3 [facility] Comment on above: Order Comment: Walker d- RB to [place], 05/06/2020 06:54 Result Comment: Call ed- RB to [place], 05/06/2020 06:54 Performed By: #### B MP ####[id number] [place], [place] [id number] Sodium [Moles/Vol] 141 mmol/L Normal 136 - 145 [facility] Comment on above: Order Comment: Walker d- RB to [place], 05/06/2020 06:54 Performed By: #### B MP ####[facility] [place], [place] [id number] Urea nitrogen [Mass/Vol] 62 mg/dL High 6 - 23 [facility] Comment on above: Order Comment: Walker d- RB to [place], 05/06/2020 06:54 Performed By: #### B MP ####[id number] [place], [place] [id number] Daily Progress Note-Endocrin litzy 05-06-2020 Daily Progress [...] potassium Objective Data: Objective Information: T PRBPSpO2 Value36.22924132/9099% Date/Time05/06 7: 7: 7: 7: 7:33 Range(36.2C - 36.7C ) (71 - 82 ) (18 - 18 ) (136 - 162 )/ (82 - 96 ) (88% - 99% ) Pain reported at 05/06 11:17: 0 = None ---- Intake and Output ----- Mn/Dy/Year TimeIntakeOutC[facility] May 05, 2020 10:00 [id number] May 05, 2020 2:00 [id number] The Intake and Output Totals for the last 24 hours are: IntakeOutputNet [id number] T PRBPSpO2 Value36.48686858/9099% Date/Time05/06 7: 7: 7: 7: 7:33 Range(36.2C [...] laboratory results: Basic Metabolic Panel Trending View [id number] 05:38:00 05-May-2020 05:34:00 Lab Comment:Called- RB to Rogelio, 05/06/2020 06:54 Called- RB to Catherine Marroquin, 05/05/2020 06:47 Glucose, Nwewu802 H 98 NA141 139 K2.9 LL 2.9 LL CL100 100 Bicarbonate, Serum32 31 Anion Gap, Serum12 11 BUN62 H 72 H CREAT2.15 H 2.28 H GFR-Non Dclkqdyp74 A 21 A GFR- Eirdziha67 A 25 A Calcium, Serum9.0 9.1 Magnesium, [...] Updated: 06-May-2020 12:32 by Alexander Gregory) Normal [facility] Daily Progress Note-General Internal Medicineon 05-06-2020 [...] negative. Objective Data: Objective Information: T PRBPSpO2 Value36.36173102/8498% Date/Time05/06 13: 13: 13: 13: 13:40 Range(36.2C - 36.7C ) (71 - 82 ) (18 - 18 ) (132 - 162 )/ (82 - 96 ) (88% - 99% ) Pain reported at 05/06 11:17: 0 = None ---- Intake and Output ----- Mn/Dy/Year TimeIntakeWashington [facility] May 05, 2020 10:00 [id number] May 05, 2020 2:00 [id number] The Intake and Output Totals for the last 24 hours are: IntakeOutputNet [id number] Physical Exam by System: Constitutional: Well developed, [...] Last Updated: 06-May-2020 13:56 by Baldo South) [facility] Daily Progress Note-Infectio us Diseaseon 05-06-2020 Daily Progress Note-Infectious Disease Service: Infectious Disease History of Present Illness: History Present Illness: HPI: Possible aspiration pneumonia Recent UTI with Citrobacter No fevers chills sweats minimal cold Subjective Data: LINDA PERALTA is a 75 year old Female who is Hospital Day # 5. Objective Data: Objective Information: T PRBPSpO2 Value36.63174419/9099% Date/Time05/06 7: 7: 7: 7: 7:33 Range(36.2C - 36.7C ) (71 - 82 ) (18 - 18 ) (136 - 162 )/ (82 - 96 ) (88% - 99% ) Pain reported at 05/06 11:17: 0 = None ---- Intake and Output ----- Mn/Dy/Year TimeIntakeWashington [facility] May 05, 2020 10:00 [id number] May 05, 2020 2:00 [id number] The Intake and Output Totals for the last 24 hours are: IntakeOutputNet [id number] T PRBPSpO2 Value36.64170108/9099% Date/Time05/06 7: 7: 7: 7: 7:33 Range(36.2C [...] RA Area A4C: 16.4 cm2 RA Major [place] A4C: 5.0 cm M-MODE MEASUREMENTS: Normal Ranges: [...] 1.2 m/s (0.6-0.9m/s) PV Max P.2 mmHg [id number] Tremayne Mcleod MD Electronically signed on 05/02/2020 [...] Last Updated: 06-May-2020 12:25 by Alberto Allred) [facility] Daily Progress Note-Nephrolo gyon 05-06-2020 Daily Progress Note-Nephrology Service: Nephrology Subjective Data: LINDA PERALTA is a 75 year old Female who is Hospital Day # 5. renal function slowly improving, K low this AM, getting corrected, feels better. Objective Data: Objective Information: T PRBPSpO2 Value36.68069326/9099% Date/Time05/06 7: 7: 7: 7: 7:33 Range(36.2C - 36.7C ) (71 - 82 ) (18 - 18 ) (136 - 162 )/ (82 - 96 ) (88% - 99% ) Pain reported at 05/06 0:50: 0 = None ---- Intake and Output ----- Mn/Dy/Year TimeIntakeOutputNet May 05, 2020 10:00 [id number] May 05, 2020 2:00 [id number] The Intake and Output Totals for the last 24 hours are: IntakeOutputNet [id number] Constitutional: Alert, in no acute distress HEENT: [...] partial nephrectomy, DVT/PE who was initially at [facility] for AMS, hypercalcemia and hypotension now transferred here. 1. ANGELA on CKD: previously hypotensive at [facility], now hypertensive, also CRS as pt is [...] Updated: 06-May-2020 11:02 by Leigh Billy) Normal [facility] Daily Progress Note-Urologyo n 05-06-2020 Daily Progress Note-Urology Service: Urology Subjective Data: LINDA PERALTA is a 75 year old Female who is Hospital Day # 5. Urology progress note for 05/06/20 Patient seems more alert and generally feels better today Urine clear per Jarrell catheter Serum creatinine elevated but seems stable at current level Discharge planning apparently in progress possible transfer to rehabilitation Therefore we will proceed with a voiding trial currently, discontinue Jarrell catheter early tomorrow morning with a voiding trial and observe clinically Otherwise continue supportive care Additional medical and historical objective data reviewed and listed below Urology progress note for Monday05/05/20, Jarrell catheter in place draining yellow clear urine Today's sitting at the bedside, still feels weak somewhat lethargic Renal insufficiency persists serum creatinine 2.28 wBC count elevated at 19,900 Currently off antibiotics and observation as per infectious disease Still planning to wait for some reasonable improvement in overall medical status ambulation and mobility and then planning to remove Jarrell catheter for a voiding trial Otherwise continue supportive care Additional medical and historical objective data reviewed and listed below. Objective Data: Objective Information: T PRBPSpO2 Value36.85659396/8498% Date/Time05/06 13: 13: 13: 13: 13:40 Range(36.5C - 36.7C ) (71 - 82 ) (18 - 18 ) (132 - 162 )/ (83 - 96 ) (88% - 99% ) Pain reported at 05/06 11:17: 0 = None ---- Intake and Output ----- [facility]/Dy/[facility]IntKind[facility] May 06, 2020 2:00 [id number] May 05, 2020 10:00 [id number] The Intake and Output Totals for the last 24 hours are: IntakeOutputNet [id number] T PRBPSpO2 Value36.19614258/8498% Date/Time05/06 13: 13: 13: 13: 13:40 Range(36.5C - 36.7C ) (71 - 82 ) (18 - 18 ) (132 - 162 )/ (83 - 96 ) (88% - 99% ) Pain reported at 05/06 11:17: 0 = None ---- Intake and Output ----- Mn/Dy/Year TimeIntakeWashington [facility] May 06, 2020 2:00 [id number] May 05, 2020 10:00 [id number] The Intake and Output Totals for the last 24 hours are: IntakeOutputNet [id number] ---Intake--- Enteral - Oral PO Fluid/Feed (oral): [...] laboratory results: Basic Metabolic Panel Trending View [id number] 05:38:00 05-May-2020 05:34:00 Lab Comment:Called- RB to Rogelio, 05/06/2020 06:54 Called- RB to Catherineaurelia Marroquin, 05/05/2020 06:47 Glucose, Dmyfk310 H 98 NA141 139 K2.9 LL 2.9 LL CL100 100 Bicarbonate, Serum32 31 Anion Gap, Serum12 11 BUN62 H 72 H CREAT2.15 H 2.28 H GFR-Non Wjillztx90 A 21 A GFR- Quaejjht15 A 25 A Calcium, Serum9.0 9.1 Magnesium, [...] by Alvin Sawyer) [facility] [address] Discharge [id number] Discharge Profile2 Discharge Orders: Anticipated Discharge Date: Anticipated Discharge [id number] DNAR: DNAR Status: DNAR Was Extending the DNAR Status Following Discharge Discussed w/ Patient/Family: yes What was the Result of the Discussion: patient wishes to have DNAR extended [place] DNR State Form Complete: yes [place] DNR State Form Status: DNR Comfort Care [...] Therapy Orders: 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 Therapy OrdersEval and Treat ([facility]) Physical Therapy OrdersEval and Treat ([facility]) Provider Follow Up: Physician To Follow at Skilled/RehabAttending Physician at Skilled/Rehab Provider FINAL REVIEW of Orders: Final Review: Final Review of Medication Reconciliation and Orders Completedby Physician Reviewing ProviderBaldo South MD at 08-May-2020 15:33:30 Appointments: Follow-Up Appointment 01: Physician/Dept/Jocelin Gregory MD / Endocrinology [facility] Reason for Referralhosp dc fu Scheduled Date/[id number] 15:00 [id number] [place] [address] CommentsPlease wear a mask when entering the building. Please bring discharge papers, a list of all medications, insurance card photo id. Please call the office if unable to keep this appointment. Electronic Signatures: Bernardino Valentino (PT ACC REP) (Signed 06-May-2020 13:18) Authored: Discharge Orders, Appointments, Gold Form - Fence Rider Summary Baldo oSuth) (Signed 08-May-2020 15:33) Authored: Discharge Orders, Hospital Course (Home Care/Gold Form), Gold Form Orders, Provider FINAL REVIEW of Orders Last Updated: 08-May-2020 15:33 by Baldo South) Normal [facility] EMR ADDONon 05-06-2020 ADDON CONFIRMATION REQUEST REC'D Normal [facility] Comment on above: Performed By: #### C MP #### [address] [id number] MAGNESIUMon 05-06-2020 Magnesium [Mass/Vol] 1.80 mg/dL Normal 1.60 - 2.40 [facility] Comment on above: Performed By: #### C A #### [address] [id number] VITAMIN D 1,25-DIHYDROXYon 0 05-06-2020 VITAMIN D 1,25-DIHYDROXY 34.3 pg/mL Normal 19.9-79.3 [facility] Comment on above: Result Comment: INTE RPRETIVE INFORMATION: Vitamin D, 1,25-Dihydroxy This test is primarily indicated during patient evaluation for hypercalcemia and renal failure. A normal result does not rule out Vitamin D deficiency. The recommended test for diagnosing Vitamin D deficiency is Vitamin D 25-hydroxy. Performed By: [employer] [address] [place] [address] Tape Coater: Eliza Fuller MD Performed By: #### V TDDI #### [employer] [address] [place] [address] BASIC METABOLIC PANELon 04-20 Anion gap [Moles/Vol] 11 mmol/L Normal 10 - 20 [facility] Comment on above: Order Comment: TEST CALCIUM WAS CANCELLED, 05/02/2020 12:20 added per RN 05/02/2020 12:20. Performed By: #### C A #### [address] [id number] Calcium [Mass/Vol] 9.1 mg/dL Normal 8.6 - 10.3 [facility] Comment on above: Order Comment: TEST CALCIUM WAS CANCELLED, 05/02/2020 12:20 added per RN 05/02/2020 12:20. Performed By: #### C A #### [address] [id number] Chloride [Moles/Vol] 100 mmol/L Normal 98 - 107 [facility] Comment on above: Order Comment: TEST CALCIUM WAS CANCELLED, 05/02/2020 12:20 added per RN 05/02/2020 12:20. Performed By: #### C A #### [address] [id number] Creatinine [Mass/Vol] 2.28 mg/dL High 0.50 - 1.05 [facility] Comment on above: Order Comment: TEST CALCIUM WAS CANCELLED, 05/02/2020 12:20 added per RN 05/02/2020 12:20. Performed By: #### C A #### [address] [id number] GFR- AM. 25 mL/min/1.73m2 Abnormal >60 [facility] Comment on above: Order Comment: TEST CALCIUM WAS CANCELLED, 05/02/2020 12:20 added per RN 05/02/2020 12:20. Result Comment: CALC ULATIONS OF ESTIMATED GFR ARE PERFORMED USING THE MDRD STUDY EQUATION FOR THE IDMS-TRACEABLE CREATININE METHODS. CLIN CHEM 2007;53:766-72 Performed By: #### C A #### [address] [id number] GFR-NON AM. 21 mL/min/1.73m2 Abnormal >60 [facility] Comment on above: Order Comment: TEST CALCIUM WAS CANCELLED, 05/02/2020 12:20 added per RN 05/02/2020 12:20. Performed By: #### C A #### [address] [id number] Glucose [Mass/Vol] 98 mg/dL Normal 74 - 99 [facility] Comment on above: Order Comment: TEST CALCIUM WAS CANCELLED, 05/02/2020 12:20 added per RN 05/02/2020 12:20. Performed By: #### C A #### [address] [id number] HCO3 (Bld) [Moles/Vol] 31 mmol/L Normal 21 - 32 [facility] Comment on above: Order Comment: TEST CALCIUM WAS CANCELLED, 05/02/2020 12:20 added per RN 05/02/2020 12:20. Performed By: #### C A #### [address] [id number] Potassium [Moles/Vol] 2.9 mmol/L Critically low 3.5 - 5.3 [facility] Comment on above: Order Comment: TEST CALCIUM WAS CANCELLED, 05/02/2020 12:20 added per RN 05/02/2020 12:20. Result Comment: Call ed- RB to Catherine Marroquin, 05/05/2020 06:47 Performed By: #### C A #### [address] [id number] Sodium [Moles/Vol] 139 mmol/L Normal 136 - 145 [facility] Comment on above: Order Comment: TEST CALCIUM WAS CANCELLED, 05/02/2020 12:20 added per RN 05/02/2020 12:20. Performed By: #### C A #### [address] [id number] Urea nitrogen [Mass/Vol] 72 mg/dL High 6 - 23 [facility] Comment on above: Order Comment: TEST CALCIUM WAS CANCELLED, 05/02/2020 12:20 added per RN 05/02/2020 12:20. Performed By: #### C A #### [address] [id number] CBCon 05-05-2020 Erythrocyte distribution width (RBC) [Ratio] 15.6 % High 11.5 - 14.5 [facility] Comment on above: Performed By: #### C BC ####[facility] [place], [place] [id number] Hematocrit (Bld) [Volume fraction] 30.6 % Low 36.0 - 46.0 [facility] Comment on above: Performed By: #### C BC ####[address] [place], [place] [id number] Hemoglobin (Bld) [Mass/Vol] 10.2 g/dL Low 12.0 - 16.0 [facility] Comment on above: Performed By: #### C BC ####[facility] [place], [place] [id number] MCHC (RBC) [Mass/Vol] 33.3 g/dL Normal 32.0 - 36.0 [facility] Comment on above: Performed By: #### C BC ####[address] [id number] MCV (RBC) [Entitic vol] 89 fL Normal 80 - 100 [facility] Comment on above: Performed By: #### C BC ####[facility] [place], [place] [phone] Platelets (Bld) [#/Vol] 323 10*3/uL Normal 150 - 450 [facility] Comment on above: Performed By: #### C BC ####[facility] [place], [place] [id number] RBC (Bld) [#/Vol] 3.43 x10E12/L Low 4.00 - 5.20 [facility] Comment on above: Performed By: #### C BC ####[facility] [place], [place] [id number] WBC (Bld) [#/Vol] 19.9 10*3/uL High 4.4 - 11.3 [facility] Comment on above: Performed By: #### C BC ####[id number] [place], [place] [id number] Consult-Orthopaedicson 05-05 Consult-Orthopaedics Service: Service: Orthopaedics History [...] will be reviewed by Dr. Glynn our poison information specialist. The patient is anticoagulated with Coumadin. [...] by Javier Hathaway) [facility] Daily Progress Note-Endocrin ologyon 05-05-2020 Daily Progress Note-Endocrinology Service: Endocrinology Subjective Data: LINDA PERALTA is a 75 year old Female who is Hospital Day # 4. Additional Information: Doing well she feels she has improved c/o lot of weakness all over Objective Data: Objective Information: T PRBPSpO2 Value36.687234/8395% Date/Time05/05 19: 19: 19: 19:19 Range(36.2C - 36.5C ) (73 - 83 ) (136 - 148 )/ (82 - 88 ) (94% - 98% ) Pain reported at 05/05 9:49: 0 = None ---- Intake and Output ----- Mn/Dy/[facility] May 05, 2020 2:00 [id number] May 05, 2020 6:00 [id number] May 04, 2020 10:00 [id number] The Intake and Output Totals for the last 24 hours are: IntakeOutputNet [id number] Physical Exam by System: Constitutional: Well developed, [...] Serum 31.6 Basic Metabolic Panel Trending View [id number]-Ope-[id number] 05:34:00 04-May-2020 05:26:00 Lab Comment:Called- RB to Catherine Cara, 05/05/2020 06:47 Glucose, Serum98 90 NA139 137 K2.9 LL 3.6 CL100 101 Bicarbonate, Serum31 27 Anion Gap, Serum11 13 BUN72 H 79 H CREAT2.28 H 2.39 H GFR-Non Ysevcrli79 A 20 A GFR- Vbwbsfyn49 A 24 A Calcium, Serum9.1 9.8 Uric [...] Updated: 05-May-2020 21:57 by Alexander Gregory) Normal [facility] Daily Progress Note-General Internal Medicineon 05-05-2020 [...] negative. Objective Data: Objective Information: T PRBPSpO2 Value36.11146478/8398% Date/Time05/05 7: 7: 14: 7: 7:22 Range(36.2C - 36.3C ) (75 - 83 ) (18 - 18 ) (135 - 148 )/ (83 - 88 ) (93% - 98% ) Pain reported at 05/05 9:49: 0 = None ---- Intake and Output ----- Mn/Dy/Year TimeIntakeOutputNet May 05, 2020 2:00 [id number] May 05, 2020 6:00 [id number] May 04, 2020 10:00 [id number] The Intake and Output Totals for the last 24 hours are: IntakeOutputNet [id number] Physical Exam by System: Constitutional: Well developed, [...] by Baldo South) [facility] Daily Progress Note-Infectio us Diseaseon 05-05-2020 Daily Progress Note-Infectious Disease Service: Infectious Disease History of Present Illness: History Present Illness: HPI: Possible aspiration pneumonia Recent UTI with Citrobacter No fevers chills sweats minimal cold Subjective Data: LINDA PERALTA is a 75 year old Female who is Hospital Day # 4. Objective Data: Objective Information: T PRBPSpO2 Value36.79395180/8398% Date/Time05/05 7: 7: 14: 7: 7:22 Range(36.2C - 36.3C ) (75 - 83 ) (18 - 18 ) (135 - 148 )/ (83 - 88 ) (93% - 98% ) Pain reported at 05/05 9:49: 0 = None ---- Intake and Output ----- Mn/Dy/Year TimeIntakeOutputNet May 05, 2020 6:00 [id number] May 04, 2020 10:00 [id number] May 04, 2020 2:00 [id number] The Intake and Output Totals for the last 24 hours are: IntakeOutputNet [id number] T PRBPSpO2 Value36.89599234/8398% Date/Time3/16 7: 7: 14:16 7:16 7:22 Range(36.2C - 36.3C ) (75 - [...] laboratory results: Complete Blood Count Trending View [id number] 05:35:00 04-May-2020 05:26:00 White Blood Cell Count19.9 H 22.3 H Red Blood Cell Count3.43 L 3.82 L HGB10.2 L 11.2 L HCT30.6 L 34.4 L MCV89 90 MCHC33.3 32.6 YBS075 382 RDW-CV15.6 H 15.9 H Parathormone Intact, Serum 05-May-2020 05:35:00 ResultValue Parathormone Intact, Serum 31.6 Basic Metabolic Panel Trending View [id number] 05:34:00 04-May-2020 05:26:00 Lab Comment:Called- RB to Catherine Marroquin, 05/05/2020 06:47 Glucose, Serum98 90 NA139 137 K2.9 LL 3.6 CL100 101 Bicarbonate, Serum31 27 Anion Gap, Serum11 13 BUN72 H 79 H CREAT2.28 H 2.39 H GFR-Non Yhitveoq00 A 20 A GFR- Mwdjamwv51 A 24 A Calcium, Serum9.1 9.8 PT + INR, Plasma Trending View [id number]-[id number] 05:34:00 04-May-2020 05:26:00 Prothrombin Time, Qssnqk31.6 H 27.5 H International Normalized Ratio, Plasma2.0 [...] RA Area A4C: 16.4 cm2 RA Major [place] A4C: 5.0 cm M-MODE MEASUREMENTS: Normal Ranges: [...] 1.2 m/s (0.6-0.9m/s) PV Max P.2 mmHg [id number] Tremayne Mcleod MD Electronically signed on 05/02/2020 [...] Last Updated: 05-May-2020 12:21 by Alberto Allred) Normal [facility] Daily Progress Note-Nephrolo gray 05-05-2020 Daily Progress Note-Nephrology Service: Nephrology Subjective Data: LINDA PERALTA is a 75 year old Female who is Hospital Day # 4. renal function stable, Ca wnl, uric acid better, off fluids. Objective Data: Objective Information: T PRBPSpO2 Value36.29650079/8398% Date/Time05/05 7: 7: 14: 7: 7:22 Range(36.2C - 36.3C ) (75 - 83 ) (18 - 18 ) (135 - 148 )/ (83 - 88 ) (93% - 98% ) Pain reported at 05/05 9:49: 0 = None ---- Intake and Output ----- Mn/Dy/Year TimeIntakeOutputNet May 05, 2020 6:00 [id number] May 04, 2020 10:00 [id number] May 04, 2020 2:00 [id number] The Intake and Output Totals for the last 24 hours are: IntakeOutputNet [id number] Constitutional: Alert, in no acute distress HEENT: [...] partial nephrectomy, DVT/PE who was initially at [facility] for AMS, hypercalcemia and hypotension now transferred here. 1. ANGELA on CKD: previously hypotensive at [facility], now hypertensive, also CRS as pt is [...] Updated: 05-May-2020 14:00 by Leigh Billy) Normal [facility] Daily Progress Note-Neurolog yon 05-05-2020 Daily [...] better. Objective Data: Objective Information: T PRBPSpO2 Value36.167743/8295% Date/Time05/05 14: 14: 14: 14:30 Range(36.2C - 36.3C ) (73 - 83 ) (135 - 148 )/ (82 - 88 ) (94% - 98% ) Pain reported at 05/05 9:49: 0 = None ---- Intake and Output ----- Mn/Dy/Year TimeIntakeOutputNet May 05, 2020 2:00 [id number] May 05, 2020 6:00 [id number] May 04, 2020 10:00 [id number] The Intake and Output Totals for the last 24 hours are: IntakeOutputNet [id number] Physical Exam by System: Neurological: The patient [...] kidney to her brother Sarcoidosis History of Plumas's disease Gout 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 Hyperlipidemia Atopic [...] Last Updated: 05-May-2020 19:20 by Vicky Boyd) [facility] Daily Progress Note-Urologyo n 05-05-2020 Daily Progress Note-Urology Service: Urology Subjective Data: LINDA PERALTA is a 75 year old Female who is Hospital Day # 4. Urology progress note for Monday 316.1, Jarrell catheter in place draining yellow clear urine Today's sitting at the bedside, still feels weak somewhat lethargic Renal insufficiency persists serum creatinine 2.28 wBC count elevated at 19,900 Currently off antibiotics and observation as per infectious disease Still planning to wait for some reasonable improvement in overall medical status ambulation and mobility and then planning to remove Jarrell catheter for a voiding trial Otherwise continue supportive care Additional medical and historical objective data reviewed and listed below. Objective Data: Objective Information: T PRBPSpO2 Value36.71523204/8398% Date/Time05/05 7: 7: 14: 7: 7:22 Range(36.2C - 36.3C ) (75 - 83 ) (18 - 18 ) (135 - 148 )/ (83 - 88 ) (93% - 98% ) Pain reported at 05/05 9:49: 0 = None ---- Intake and Output ----- [facility] May 05, 2020 6:00 [id number] May 04, 2020 10:00 [id number] May 04, 2020 2:00 [id number] The Intake and Output Totals for the last 24 hours are: IntakeOutputNet [id number] T PRBPSpO2 Value36.32686997/8398% Date/ 7: 7: 14: 7: 7:22 Range(36.2C - 36.3C ) (75 - 83 ) (18 - 18 ) (135 - 148 )/ (83 - 88 ) (93% - 98% ) Pain reported at 05/05 9:49: 0 = None ---- Intake and Output ----- [facility]Dy[facility] May 05, 2020 6:00 [id number] May 04, 2020 10:00 [id number] May 04, 2020 2:00 [id number] The Intake and Output Totals for the last 24 hours are: IntakeOutputNet [id number] ---Intake--- Enteral - Oral PO Fluid/Feed (oral): [...] laboratory results: Complete Blood Count Trending View [id number] 05:35:00 04-May-2020 05:26:00 White Blood Cell Count19.9 H 22.3 H Red Blood Cell Count3.43 L 3.82 L HGB10.2 L 11.2 L HCT30.6 L 34.4 L MCV89 90 MCHC33.3 32.6 FMJ465 382 RDW-CV15.6 H 15.9 H Parathormone Intact, Serum 05-May-2020 05:35:00 ResultValue Parathormone Intact, Serum 31.6 Basic Metabolic Panel Trending View [id number] 05:34:00 04-May-2020 05:26:00 Lab Comment:Called- RB to Catherine Cara, 05/05/2020 06:47 Glucose, Serum98 90 NA139 137 K2.9 LL 3.6 CL100 101 Bicarbonate, Serum31 27 Anion Gap, Serum11 13 BUN72 H 79 H CREAT2.28 H 2.39 H GFR-Non Diamxefm48 A 20 A GFR- Ogljryth09 A 24 A Calcium, Serum9.1 9.8 PT [...] RA Area A4C: 16.4 cm2 RA Major [place] A4C: 5.0 cm M-MODE MEASUREMENTS: Normal Ranges: [...] 1.2 m/s (0.6-0.9m/s) PV Max P.2 mmHg [id number] Tremayne Mcleod MD Electronically signed on 05/02/2020 [...] Last Updated: 05-May-2020 13:22 by Alvin Sawyer) Normal [facility] CHELA PATH REVIEWon 05-05-2020 PATH REVIEW-CHELA NNEKA Normal [facility] Comment on above: Result Comment: By h er/his signature above, the Pathologist listed as making the final interpretation certifies that she/he has personally reviewed this case. Performed By: #### P R12 #### [facility] [address] [place] [address] PARATHYROID HORMONE,INTACTon 05-05-2020 PARATHYROID HORMONE,INTACT 31.6 pg/mL Normal 12.0 - 88.0 [facility] Comment on above: Performed By: #### P TH ####[address] [id number] PHOSPHORUSon 05-05-2020 Phosphate [Mass/Vol] 4.8 mg/dL Normal 2.5 - 4.9 [facility] Comment on above: Result Comment: The performance characteristics of phosphorus testing in heparinized plasma have been validated by the individual laboratory site where testing is performed. Testing on heparinized plasma is not approved by the FDA; however, such approval is not necessary. Performed By: #### P HOS ####[address] [id number] PROTEIN ELECTROPHORESIS + IM MUNOFIXATION, SERUMon 05-05-2020 IMMUNOFIXATION INTERP NORMAL Normal [facility] Comment on above: Result Comment: No m onoclonal proteins detected by immunofixation. Performed By: #### I FE2 ####[id number] [place] [address] INTERPRETATION SEE COMMENT Normal [facility] Comment on above: Result Comment: REFL EXED TO IMMUNOFIXATION ELECTROPHORESIS Hypoalbuminemia. Performed By: #### I FE2 ####[facility] [place], [place] [id number] [place] [address] MONOCLONAL PROTEIN NONE DETECTED Normal [facility] Comment on above: Performed By: #### I FE2 ####[facility] [place], [place] [id number] [place] [address] PT/INRon 05-05-2020 INR Coag (PPP) [Relative time] 2.0 {INR} High 0.9 - 1.1 [facility] Comment on above: Performed By: #### P TINR ####[address] [id number] PT Coag (PPP) [Time] 23.6 s High 10.1 - 13.3 [facility] Comment on above: Performed By: #### P TINR ####[address] [id number] SPE PATH REVIEWon 05-05-2020 PATH REVIEW-SPE NNEKA Normal [facility] Comment on above: Result Comment: By h er/his signature above, the Pathologist listed as making the final interpretation certifies that she/he has personally reviewed this case. Performed By: #### P R12 #### [facility] [address] [place] [address] Swallow Evaluation v2-Bedsid e Clinical Swallow, SLPon 05-05-2020 Swallow Evaluation v2-Bedside Clinical Swallow, DETAIL DRAFTER Rehab: Info: Time IN12:00 Time OUT12:15 Total Treatment Dmzcgvq33 Evaluation TypeBedside Clinical Swallow, DETAIL DRAFTER Patient Effortgood Patient Profile Reviewedyes Reason for ReferralDysphagia Referring PhysicianTamesis General Observations of PatientPatient was seen for a bedside swallow evaluation this date. Patient was awake, alert, and cooperative. Pertinent History of [facility] for [facility]ocrinology [...] Met (Swallow Eval)yes; treatment indicated Therapy Frequency (DETAIL DRAFTER)3-5x/wk Expected Duration Therapy Rljizds60 minutes DETAIL DRAFTER Diet Recommendations (Swallow Eval)REGULAR WITH THIN LIQUIDS Recommended Feeding/Eating Techniques (Swallow Eval)alternate between small bites and sips of food/liquid& double/multiple swallows& feed upright in 90 degree position& small sips/bites& slow rate Monitor for Signs of Aspiration (Swallow Eval)cough; gurgly voice; throat clearing; fever; upper respiratory infection; pneumonia Short Term Goals: Dysphagia/Swallow: Established [id number]-Zgu-3613 Dysphagia/Swallow: Goal Details1. Patient will tolerate highest [...] evaluation. This documentation was completed using the Shopventory[employer] system. There may be spelling and/or grammatical errors that were not corrected prior to final submission. Electronic Signatures: Jayme Keys (DETAIL DRAFTER) (Signed 05-May-2020 13:38) Authored: Info, Impression, Short Term Goals, Education Last Updated: 05-May-2020 13:38 by Jayme Keys (DETAIL DRAFTER) Normal [facility] URIC ACIDon 05-05-2020 Urate [Mass/Vol] 9.7 mg/dL High 2.3 - 6.7 [facility] Comment on above: Result Comment: Nadia puncture immediately after or during the administration of Metamizole may lead to falsely low results. Testing should be performed immediately prior to Metamizole dosing. Performed By: #### C MP #### [facility] [address] [place], [place] [id number] BASIC METABOLIC PANELon 04-20 Anion gap [Moles/Vol] 13 mmol/L Normal 10 - 20 [facility] Comment on above: Performed By: #### C MP #### [facility] [address] [place], [place] [id number] Calcium [Mass/Vol] 9.8 mg/dL Normal 8.6 - 10.3 [facility] Comment on above: Performed By: #### C MP #### [address] [id number] Chloride [Moles/Vol] 101 mmol/L Normal 98 - 107 [facility] Comment on above: Performed By: #### C MP #### [address] [id number] Creatinine [Mass/Vol] 2.39 mg/dL High 0.50 - 1.05 [facility] Comment on above: Performed By: #### C MP #### [address] [id number] GFR- AM. 24 mL/min/1.73m2 Abnormal >60 [facility] Comment on above: Result Comment: CALC ULATIONS OF ESTIMATED GFR ARE PERFORMED USING THE MDRD STUDY EQUATION FOR THE IDMS-TRACEABLE CREATININE METHODS. CLIN CHEM 2007;53:766-72 Performed By: #### C MP #### [address] [id number] GFR-NON AM. 20 mL/min/1.73m2 Abnormal >60 [facility] Comment on above: Performed By: #### C MP #### [address] [id number] Glucose [Mass/Vol] 90 mg/dL Normal 74 - 99 [facility] Comment on above: Performed By: #### C MP #### [address] [id number] HCO3 (Bld) [Moles/Vol] 27 mmol/L Normal 21 - 32 [facility] Comment on above: Performed By: #### C MP #### [address] [id number] Potassium [Moles/Vol] 3.6 mmol/L Normal 3.5 - 5.3 [facility] Comment on above: Performed By: #### C MP #### [address] [id number] Sodium [Moles/Vol] 137 mmol/L Normal 136 - 145 [facility] Comment on above: Performed By: #### C MP #### [facility] [address] [place], [place] [id number] Urea nitrogen [Mass/Vol] 79 mg/dL High 6 - 23 [facility] Comment on above: Performed By: #### C MP #### [facility] [address] [place], [place] [id number] CBCon 05-04-2020 Erythrocyte distribution width (RBC) [Ratio] 15.9 % High 11.5 - 14.5 [facility] Comment on above: Performed By: #### P R12 #### [facility] [address] [place] [address] Hematocrit (Bld) [Volume fraction] 34.4 % Low 36.0 - 46.0 [facility] Comment on above: Performed By: #### P R12 #### [facility] [address] [place] [address] Hemoglobin (Bld) [Mass/Vol] 11.2 g/dL Low 12.0 - 16.0 [facility] Comment on above: Performed By: #### P R12 #### [facility] [address] [place] [address] MCHC (RBC) [Mass/Vol] 32.6 g/dL Normal 32.0 - 36.0 [facility] Comment on above: Performed By: #### P R12 #### [facility] [address] [place] [address] MCV (RBC) [Entitic vol] 90 fL Normal 80 - 100 [facility] Comment on above: Performed By: #### P R12 #### [facility] [address] [place] [address] Platelets (Bld) [#/Vol] 382 10*3/uL Normal 150 - 450 [facility] Comment on above: Performed By: #### P R12 #### [facility] [address] [place] [address] RBC (Bld) [#/Vol] 3.82 x10E12/L Low 4.00 - 5.20 [facility] Comment on above: Performed By: #### P R12 #### [facility] [address] [place] [address] WBC (Bld) [#/Vol] 22.3 10*3/uL High 4.4 - 11.3 [facility] Comment on above: Performed By: #### P R12 #### [facility] [address] [place] [address] CREATINE KINASEon 05-04-2020 CK [Catalytic activity/Vol] 51 U/L Normal 0 - 215 [facility] Comment on above: Performed By: #### C BC #### [facility] [address] [place], [place] [id number] Consult-Endocrinologyon 04-20 Consult-Endocrinology Service: Service: Endocrinology Consult: [...] penicillins: Rash Objective: Objective Information: T PRBPSpO2 Value36.12992019/9097% Date/Time05/04 8: 8: 8: 8: 8:26 Range(36.2C [...] laboratory results: Complete Blood Count Trending View Zpzodr92-[id number] 05:26:00 03-May-2020 05:31:00 White Blood Cell Count22.3 H 22.9 H Red Blood Cell Count3.82 L 3.81 L HGB11.2 L 11.1 L HCT34.4 L 33.8 L MCV90 89 MCHC32.6 32.8 KJB807 405 RDW-CV15.9 H 16.0 H Basic Metabolic Panel 04-May-2020 05:26:00 ResultValue Glucose, Serum 90 NA 137 K 3.6 CL 101 Bicarbonate, Serum 27 Anion Gap, Serum 13 BUN 79 H CREAT 2.39 H GFR-Non 20 A GFR- 24 A Calcium, Serum 9.8 Urinalysis with Culture if Indicated 03-May-2020 11:12:00 ResultValue Color, Urine STRAW Reference Range: STRAW,YELLOW Appearance, Urine CLEAR Specific Iota, Urine 1.008 pH, Urine 6.0 Protein, Urine [...] Lactate, Level 1.8 Culture, Blood Trending View [id number] 10:49:00 03-May-2020 10:48:00 Culture, BloodNEGATIVE TO DATE, CULTURE IN PROGRESS. NEGATIVE TO DATE, CULTURE IN PROGRESS. Comprehensive Metabolic Panel Trending View [id number] 05:31:00 02-May-2020 02:22:00 Glucose, Serum93 184 H NA138 138 K3.3 L 4.2 CL101 101 Bicarbonate, Serum26 26 Anion Gap, Serum14 15 BUN86 H 84 H CREAT2.39 H 2.31 H GFR-Non Ctoxmyph43 A 20 A GFR- Gdwrlfxh92 A 24 A Calcium, Serum10.8 H 12.3 [...] 2020 4:41PM] Consult Status: Consult Order ID: [id number] Problem/Assessment/Plan: Impression 1: Hypercalcemia and CKD ANGELA [...] Updated: 26-May-2020 16:04 by Alexander Gregory) [facility] Consult-Urologyon 05-04-2020 Consult-Urology Service: Service: Urology [...] SPECIFICALLY REFERRED UROLOGICALLY FOR URINARY RETENTION REQUIRING JARRELL CATHETER DRAINAGE. PATIENT IS SOMEWHAT WEAK, SOMEWHAT VAGUE HISTORIAN AND ADDITIONAL INFORMATION OBTAINED FROM CHART AND NURSING. AFTER ADMISSION THE PATIENT APPARENTLY HAD DIFFICULTY VOIDING, AND JARRELL CATHETER WAS INSERTED PER NURSING WITH REPORTED LARGE RESIDUAL URINE AMOUNT. URINE IS YELLOW CLEAR PER JARRELL CATHETER CURRENTLY. CLINICAL HISTORY OBTAINED FROM THE [...] COMPLAINTS OF ANY DISCOMFORT, ABDOMEN SOFT BENIGN, JARRELL CATHETER IN PLACE DRAINING YELLOW CLEAR URINE [...] ON FLOMAX AND PLAN VOIDING TRIAL AND JARRELL CATHETER REMOVAL OVER THE NEXT 2-3 DAYS [...] penicillins: Rash Objective: Objective Information: T PRBPSpO2 Value36.51795858/8593% Date/Time05/04 14: 14: 14: 14: 14:39 Range(36.2C - 36.7C ) (71 - 93 ) (16 - 18 ) (139 - 156 )/ (85 - 92 ) (92% - 97% ) Pain reported at 05/04 8:26: 0 = None ---- Intake and Output ----- Mn[facility]Dy/[facility] May 04, 2020 2:00 [id number] May 04, 2020 6:00 [id number] May 03, 2020 10:00 [id number] The Intake and Output Totals for the last 24 hours are: [facility] [id number] ---Intake--- IV Fluids Infusion: 1200 mL Infusion: [...] results: PT + INR, Plasma Trending View [id number] 05:26:00 03-May-2020 10:50:00 Prothrombin Time, Wrjzav86.5 H 33.4 H International Normalized Ratio, Plasma2.3 [...] Reference Range: STRAW,YELLOW Appearance, Urine CLEAR Specific Iota, Urine 1.008 pH, Urine 6.0 Protein, Urine [...] RA Area A4C: 16.4 cm2 RA Major Earlham A4C: 5.0 cm M-MODE MEASUREMENTS: Normal Ranges: [...] 1.2 m/s (0.6-0.9m/s) PV Max P.2 mmHg [id number] Tremayne Mcleod MD Electronically signed on 05/02/2020 at 1:08:29 PM Final Echocardiogram [May 02 2020 1:08PM] Impression: No evidence of hydronephrosis. Nonobstructing calculus at the upper pole. Complex cyst with calcification given hypodensity at the level of the renal hilum for which nonemergent CT would be recommended for further evaluation. Ultrasound Renal Bilateral [May 02 2020 12:57PM] Consult Status: Consult Order ID: [id number] Problem List: Admitting Dx: Hypercalcemia: Additional Dx: Change in mental status: Onset Date: 04-May-2020 Electronic Signatures: Alvin Sawyer) (Signed 04-May-2020 17:33) Authored: Service, History of Present Illness, Allergies, Objective, Assessment/Recommendatio ns, Note Completion Last Updated: 04-May-2020 17:33 by Alvin Sawyer) [facility] Daily Progress Note-Infectio us Diseaseon 05-04-2020 Daily [...] 3. Objective Data: Objective Information: T PRBPSpO2 Value36.55539348/8593% Date/Time05/04 14: 14: 14: 14: 14:39 Range(36.2C - 36.3C ) (71 - 93 ) (18 - 18 ) (139 - 156 )/ (85 - 90 ) (92% - 97% ) Pain reported at 05/04 8:26: 0 = None ---- Intake and Output ----- Mn/Dy/[facility]Out[facility] May 04, 2020 2:00 [id number] May 04, 2020 6:00 [id number] May 03, 2020 10:00 [id number] The Intake and Output Totals for the last 24 hours are: IntakeOutputNet [id number] Recent Lab Results: Results: CBC: 05/04/2020 05:26 [...] Updated: 04-May-2020 19:38 by Di Estrada () [facility] Daily Progress Note-Medicine on 05-04-2020 Daily Progress Note-Medicine Service: Medicine Subjective Data: LINDA PERALTA is a 75 year old Female who is Hospital Day # 3. Patient was laying in bed overall feeling little bit better but still has bilateral leg weakness developed urinary retention has a Jarrell catheter denies any chest pain no abdominal pain. Objective Data: Objective Information: T PRBPSpO2 Value36.60237260/9097% Date/Time05/04 8: 8: 8: 8: 8:26 Range(36.2C - 36.9C ) (71 - 93 ) (16 - 18 ) (139 - 162 )/ (89 - 95 ) (92% - 97% ) Highest temp of 36.9 C was recorded at 05/03 14:24 Pain reported at 05/04 8:26: 0 = None ---- Intake and Output ----- Mn/Dy/Year TimeIntakeOutputNet May 04, 2020 6:00 [id number] May 03, 2020 10:00 [id number] May 03, 2020 2:00 [id number] The Intake and Output Totals for the last 24 hours are: [facility] [id number] Physical Exam by System: Constitutional: Well developed, [...] weakness Plan for Impression 7: Status post Jarrell catheter consult urology, start lumbar and thoracic MRI rule out cord compression Electronic Signatures: Nani Stanley) (Signed 04-May-2020 12:20) Authored: Service, Subjective Data, Objective Data, Assessment and Plan, Note Completion Last Updated: 04-May-2020 12:20 by Nani Stanley) [facility] Daily Progress Note-Nephrolo gyon 05-04-2020 Daily Progress Note-Nephrology Service: Nephrology Subjective Data: LINDA PERALTA is a 75 year old Female who is Hospital Day # 3. renal function stable, remains on fluids, appetite decent but doesn't like the food, feeling better. Objective Data: Objective Information: T PRBPSpO2 Value36.07365133/8593% Date/Time05/04 14: 14: 14: 14: 14:39 Range(36.2C - 36.7C ) (71 - 93 ) (16 - 18 ) (139 - 156 )/ (85 - 92 ) (92% - 97% ) Pain reported at 05/04 8:26: 0 = None ---- Intake and Output ----- Mn/Dy/Year TimeIntakeOutputNet May 04, 2020 2:00 [id number] May 04, 2020 6:00 [id number] May 03, 2020 10:00 [id number] The Intake and Output Totals for the last 24 hours are: IntakeOutputNet [id number]\ Constitutional: Alert, in no acute distress HEENT: [...] partial nephrectomy, DVT/PE who was initially at [place] for AMS, hypercalcemia and hypotension now transferred here. 1. ANGELA on CKD: previously hypotensive at [place], now hypertensive, also CRS as pt is [...] Updated: 04-May-2020 15:19 by Leigh Billy) [facility] Daily Progress Note-Neurolog yon 05-04-2020 Daily [...] better. Objective Data: Objective Information: T PRBPSpO2 Value36.88485529/8593% Date/Time05/04 14: 14: 14: 14: 14:39 Range(36.2C - 36.7C ) (71 - 93 ) (16 - 18 ) (139 - 156 )/ (85 - 92 ) (92% - 97% ) Pain reported at 05/04 8:26: 0 = None ---- Intake and Output ----- Mn/Dy/Year TimeIntakeOutputNet May 04, 2020 2:00 [id number] May 04, 2020 6:00 [id number] May 03, 2020 10:00 [id number] The Intake and Output Totals for the last 24 hours are: IntakeOutputNet [id number] Physical Exam by System: Neurological: The patient [...] kidney to her brother Sarcoidosis History of Plumas's disease Gout 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 Hyperlipidemia Atopic [...] Updated: 04-May-2020 16:25 by Vicky Boyd) [facility] Discharge Planning [id number] 0 05-04-2020 Discharge Planning Note2 Discharge Planning: Planned Dispositionskilled/rehab /extended care [facility] [place] of Choice Explainedyes Visit [facility] Is the Patient Being Discharged on an Opioidno Anticipated Discharge [id number] Discharge Planning 05/04/2020 1229 TCC PATIENT WAS TRANSFERRED FROM [facility] TO [facility] ON MAY 01. PER DR. STANLEY, PATIENT WAS AT [facility] FOR 9 DAYS BEFORE SHE TRANSFERRED TO [facility]. PATIENT'S DX: HYPERCALCEMIA, CHANGED MENTAL STATUS, ANGELA, PNEUMONIA, URINARY RETENTION AND LEUKOCYSTOSIS. PT HAS BEEN ORDERED TO EVALUATE. I MET WITH THE PATIENT WHO STATES SHE LIVES WITH HER . AICHA, THE RN CARING FOR THE PATIENT, STATES THAT THE IS IN [facility] AND HAS CA WITH METS. THE PATIENT STATES SHE IS INDEPENDENT WITH ADLS. THE PATIENT CAN COOK, BUT HER DAUGHTER DOES THE CLEANING AND LAUNDRY. PATIENT DOES HAVE A WALKER. DAUGHTER WILL TAKE TO MD APPOINTMENTS. THE PATIENT STATES THAT SHE HAS HHC WITH [facility] AND HER PREFERENCE IS TO DC HOME AND CONTINUE SERVICES WITH [facility]. OLY, THE PCN, IS AWARE. [facility] WILL CONTINUE TO FOLLOW. TALIA JAMES RN 05/04/20 2:43 pcn- Notified by [facility]-talia that patient was previously active with [facility]. Provided home care list to from [facility] directory that includes agencies that are within [facility], patients insurance, meets patients medical needs, and in discharge zip code that patient prefers, and identifies each agencies [facility] star rating. Resumption of care referral submitted to [facility] and is currently under review. will await final d/c orders. SHANE Romero 05/05/2020 0950 [facility] PT/OT STILL NEEDS TO EVALUATE PATIENT. AICHA, THE RN CARING FOR THE PATIENT, STATES THAT THE WAS TO DC YESTERDAY OR TODAY FROM [facility] PER THE DAUGHTER. SHE IS HELPING CARE FOR HIM AND PLANS TO BE THERE WHEN THE MOM DC. AICHA IS AWARE I WILL TALK WITH THE DAUGHTER AND PATIENT AGAIN ONCE PT/OT EVALUTES. DR. SOUTH IS AWARE THAT PATIENT IS ACTIVE WITH [facility] AND AT THIS TIME, DC PLAN IS HOME WITH CONTINUED SERVICES WITH [facility]. AICHA ALSO INFORMED ME THAT PATIENT'S POTASSIUM WAS 2.9 TODAY AND PO SUPPLEMENTS ARE BEING GIVEN. PATIENT STILL HAS EDEMA FROM [place]. PATIENT IS ON IV LASIX WELL. [facility] WILL CONTINUE TO FOLLOW. TALIA JAMES RN 05/05/2020 1523 TCC PT [facility] IS 11. I WENT TO REVISIT PATIENT AND SHE IS SLEEPING. I CALLED THE DAUGHTER AND POA, SOULEYMANE NAGI. SOULEYMANE STATES THAT HER DAD IS STILL IN [facility] AND IS NOT BEING DC TODAY AND MAY BE THERE A FEW MORE DAYS. THERAPY EVALUATE DISCUSSED WITH SOULEYMANE AND SHE STATES THAT SHE FEELS THE PATIENT NEEDS TO GO TO REHAB [place] UNTIL SHE IS ABLE TO BE MORE INDEPENDENT WITH MAYBE A 1 PERSON ASSIST. SHE HAS REQUESTED [facility] SHE HAS BEEN THERE BEFORE AND [address] CHO[address] [facility] [place]. DR. SOUTH IS AWARE OF DC PLAN. OLY, THE PCN, IS AWARE WELL AND WILL SEND TO [facility] FOR THEM TO EVALUATE TO SEE IF PATIENT IS APPROPRIATE FOR REHAB AND THEN PRECERT WILL BE NEEDED. [facility] WILL CONTINUE TO FOLLOW. TALIA JAMES RN 05/05/20 3:51 pcn- per talia-tcc pt. will need snf setting on d/c, she has spoken to dtr. who is requesting [facility] unit as she has been there in the past, [facility] choice [facility] [place], referral sent via cnc to [facility]. SHANE Romero 05/05/20 4:15 pcn-spoke with admissions at [facility] who states they are full at this time and have no beds available. referral sent to dtr's second choice [facility] [place]. spoke with dtrAlaina comer to provide update. SHANE Romero 05/06/2020 1351 TCC I ROUNDED WITH DR. SOUTH AND HE STATES THAT PATIENT POTASSIUM IS STILL 2.9 TODAY AND SHE IS RECEIVING POTASSIUM REPLACEMENT. DR. SOUTH IS AWARE PRECERT HAS BEEN STARTED AND HE WOULD BE MADE AWARE WHEN OBTAINED. HE STATED UNDERSTANDING AND STATES PATIENT IS A PD IN 1-2 DAYS. TALIA JAMES RN 05/07/20 12:50 [facility]cn-[facility] [place] [facility] received ins. precert and able to accept pt. per urology, no d/c today/voiding trial. informed facility. SHANE Romero 05/07/[address] SOUTH AND HE IS AWARE PRECERT HAS BEEN OBTAINED. PT NEEDS A VOIDING TRIAL AND THEN NEED FINAL OK TO DC FROM DR KIRKLAND. ROSS REICH, UPDATED, WILL CONTINUE TO FOLLOW, MADAN ALEXIS, AWARE PT MAY STILL DC TODAY. Anette MONDRAGON, RN, TCC 05/07/[address] OVALLES AND HE WILL HOLD DC TODAY, WILL PLAN DC FOR TOMORROW HE DETERMINES VOIDING TRIAL RESULTS. MADAN ALEXIS, UPDATED. Anette MONDRAGON, RN, TCC 05/08/20 2:05 pcn-per [facility] [place] they have received ins. precert and able to accept pt. pt. will d/c this date to [facility] [place] [facility] at 5:30 pm via [facility] wheelchair van. spoke with pt. and dtr. who are aware and in agreement to transport and cost of transportation. SHANE Romero Assessment: Discharge Planning Assessment [id number] Primary Contact Name and NumberSouleymane Lopez - [phone] (daughter)(1) Stated Reason for Admissionpatient states I fell. (1) Arrived Fromhospital (1) Readmission Within the Last 30 Daysno previous admission in last 30 days Lives Withspouse(1) Living Arrangementshouse(1) Equipment Currently Used at [facility] Resource/Environmental Concernsnone(1) Anticipated Transition [place] with help/services Services [facility](1) Anticipated Changes Related to Illnessnone Equipment Needed After Dischargenone Anticipated Discharge Facility/Level of Care [facility] Care - Resumed Visit Tranportation Needed from [facility] Electronic Signatures: Anette Roy (COOR) (Signed 07-May-2020 14:36) Authored: Discharge Planning Oly Leon (PCN) (Signed 08-May-2020 14:07) Authored: Discharge Planning Emmie James (COOR) (Signed 06-May-2020 13:59) Authored: Discharge Planning, Assessment Magnus Coley (COOR) (Signed 08-May-2020 14:08) Authored: Discharge Planning, Assessment Last Updated: 08-May-2020 14:08 by Magnus Coley (COOR) References: 1. Data Referenced From Patient Profile - Adult v2 02-May-2020 00:48 [facility] EMR ADDONon 05-04-2020 ADDON CONFIRMATION REQUEST REC'D [facility] Comment on above: Performed By: #### P R12 #### [facility] [address] [place] [address] NR MRI L-SPINE WOon 05-05-19 21 NR MRI L-SPINE WO Patient Name: LINDA PERALTA STUDY: MRI T-SPINE WO; MRI L-SPINE WO; 05/04/2020 1:26 pm INDICATION: Urinary retention bilateral leg weakness. COMPARISON: CT chest abdomen and pelvis from 05/03/2020 ACCESSION NUMBER(S): [id number]; [id number] ORDERING CLINICIAN: NANI STANLEY TECHNIQUE: Sagittal T1 [...] BRADLEY BECERRA MD [facility] NR MRI T-SPINE WOon 05-05-19 NR MRI T-SPINE WO Patient Name: LINDA PERALTA STUDY: MRI T-SPINE WO; MRI L-SPINE WO; 05/04/2020 1:26 pm INDICATION: Urinary retention bilateral leg weakness. COMPARISON: CT chest abdomen and pelvis from 05/03/2020 ACCESSION NUMBER(S): [id number]; [id number] ORDERING CLINICIAN: NANI STANLEY TECHNIQUE: Sagittal T1 [...] Electronically signed by: BRADLEY BECERRA MD [facility] PROTEIN ELECTROPHORESIS + IM MUNOFIXATION, SERUMon 05-04-2020 GAMMA GLOBULIN 0.9 g/dL Normal 0.5 - 1.4 [facility] Comment on above: Performed By: #### I FE2 ####[facility] [place], [place] [id number] [place] [address] Albumin [Mass/Vol] 3.1 g/dL Low 3.4 - 5.0 [facility] Comment on above: Performed By: #### I FE2 ####[id number] [place] [address] ALPHA 1 GLOBULIN 0.3 g/dL Normal 0.2 - 0.6 [facility] Comment on above: Performed By: #### I FE2 ####[id number] [place] [address] ALPHA 2 GLOBULIN 0.6 g/dL Normal 0.4 - 1.1 [facility] Comment on above: Performed By: #### I FE2 ####[id number] [place] [address] BETA GLOBULIN 0.6 g/dL Normal 0.5 - 1.2 [facility] Comment on above: Performed By: #### I FE2 ####[id number] [place] [address] PT/INRon 05-04-2020 INR Coag (PPP) [Relative time] 2.3 {INR} High 0.9 - 1.1 [facility] Comment on above: Performed By: #### C MP #### [address] [id number] PT Coag (PPP) [Time] 27.5 s High 10.1 - 13.3 [facility] Comment on above: Performed By: #### C MP #### [address] [id number] BLOOD CULTURE, BACTERIALon 0 05-03-2020 BLOOD CULTURE, BACTERIAL PATIENT: LINDA EPRALTA LOCATION: [facility] E BILL#: [id number] : 41 AGE: SEX: F ORDERED BY: NANI STANLEY SOURCE: Blood COLLECTED: 05/03/20 10:49 ANTIBIOTICS AT [facility].: RECEIVED : 05/03/20 21:14 SITE: R E S U L T S BLOOD CULTURE, BACTERIAL FINAL 05/08/20 21:42 No Growth at 1 days No Growth at 2 days No Growth at 3 days No Growth at 4 days NO GROWTH - FINAL REPORT [facility] Comment on above: Performed By: #### C A #### [address] [id number] BLOOD CULTURE, BACTERIAL PATIENT: LINDA PERALTA LOCATION: [address] BILL#: [id number] : 41 AGE: SEX: F ORDERED BY: NANI STANLEY SOURCE: Blood COLLECTED: 05/03/20 10:48 ANTIBIOTICS AT [facility].: RECEIVED : 05/03/20 21:08 SITE: R E S U L T S BLOOD CULTURE, BACTERIAL FINAL 05/08/20 21:42 No Growth at 1 days No Growth at 2 days No Growth at 3 days No Growth at 4 days NO GROWTH - FINAL REPORT [facility] Comment on above: Performed By: #### C A #### [address] [id number] CBCon 05-03-2020 Erythrocyte distribution width (RBC) [Ratio] 16.0 % High 11.5 - 14.5 [facility] Comment on above: Performed By: #### C MP #### [address] [id number] Hematocrit (Bld) [Volume fraction] 33.8 % Low 36.0 - 46.0 [facility] Comment on above: Performed By: #### C MP #### [address] [id number] Hemoglobin (Bld) [Mass/Vol] 11.1 g/dL Low 12.0 - 16.0 [facility] Comment on above: Performed By: #### C MP #### [address] [id number] MCHC (RBC) [Mass/Vol] 32.8 g/dL Normal 32.0 - 36.0 [facility] Comment on above: Performed By: #### C MP #### [address] [id number] MCV (RBC) [Entitic vol] 89 fL Normal 80 - 100 [facility] Comment on above: Performed By: #### C MP #### [address] [id number] Platelets (Bld) [#/Vol] 405 10*3/uL Normal 150 - 450 [facility] Comment on above: Performed By: #### C MP #### [address] [id number] RBC (Bld) [#/Vol] 3.81 x10E12/L Low 4.00 - 5.20 [facility] Comment on above: Performed By: #### C MP #### [address] [id number] WBC (Bld) [#/Vol] 22.9 10*3/uL High 4.4 - 11.3 [facility] Comment on above: Performed By: #### C MP #### [address] [id number] COMPREHENSIVE PANELon 2020 Albumin [Mass/Vol] 2.7 g/dL Low 3.4 - 5.0 [facility] Comment on above: Performed By: #### C MP #### [address] [id number] ALP [Catalytic activity/Vol] 67 U/L Normal 33 - 136 [facility] Comment on above: Performed By: #### C MP #### [address] [id number] ALT [Catalytic activity/Vol] 48 U/L High 7 - 45 [facility] Comment on above: Result Comment: Liz ents treated with Sulfasalazine may generate falsely decreased results for ALT. Performed By: #### C MP #### [address] [id number] Anion gap [Moles/Vol] 14 mmol/L Normal 10 - 20 [facility] Comment on above: Performed By: #### C MP #### [address] [id number] AST [Catalytic activity/Vol] 16 U/L Normal 9 - 39 [facility] Comment on above: Performed By: #### C MP #### [address] [id number] Bilirubin [Mass/Vol] 0.6 mg/dL Normal 0.0 - 1.2 [facility] Comment on above: Performed By: #### C MP #### [address] [id number] Calcium [Mass/Vol] 10.8 mg/dL High 8.6 - 10.3 [facility] Comment on above: Performed By: #### C MP #### [address] [id number] Chloride [Moles/Vol] 101 mmol/L Normal 98 - 107 [facility] Comment on above: Performed By: #### C MP #### [address] [id number] Creatinine [Mass/Vol] 2.39 mg/dL High 0.50 - 1.05 [facility] Comment on above: Performed By: #### C MP #### [address] [id number] GFR- AM. 24 mL/min/1.73m2 Abnormal >60 [facility] Comment on above: Result Comment: CALC ULATIONS OF ESTIMATED GFR ARE PERFORMED USING THE MDRD STUDY EQUATION FOR THE IDMS-TRACEABLE CREATININE METHODS. CLIN CHEM 2007;53:766-72 Performed By: #### C MP #### [address] [id number] GFR-NON AM. 20 mL/min/1.73m2 Abnormal >60 [facility] Comment on above: Performed By: #### C MP #### [address] [id number] Glucose [Mass/Vol] 93 mg/dL Normal 74 - 99 [facility] Comment on above: Performed By: #### C MP #### [address] [id number] HCO3 (Bld) [Moles/Vol] 26 mmol/L Normal 21 - 32 [facility] Comment on above: Performed By: #### C MP #### [address] [id number] Potassium [Moles/Vol] 3.3 mmol/L Low 3.5 - 5.3 [facility] Comment on above: Performed By: #### C MP #### [address] [id number] Protein [Mass/Vol] 4.8 g/dL Low 6.4 - 8.2 [facility] Comment on above: Performed By: #### C MP #### [address] [id number] Sodium [Moles/Vol] 138 mmol/L Normal 136 - 145 [facility] Comment on above: Performed By: #### C MP #### [address] [id number] Urea nitrogen [Mass/Vol] 86 mg/dL High 6 - 23 [facility] Comment on above: Performed By: #### C MP #### [id number] CHEST ABDOMEN PELVIS WO C ONTRASTon 05-03-2020 CT CHEST ABDOMEN PELVIS WO CONTRAST Patient Name: LINDA PERALTA STUDY: CT CHEST ABDOMEN PELVIS WO CONTRAST; 05/03/2020 9:48 am INDICATION: pneumonia abnormal renal ultrasound hx of solitary kidney. COMPARISON: None. ACCESSION NUMBER(S): [id number] ORDERING CLINICIAN: NANI STANLEY TECHNIQUE: CT of the chest, abdomen and pelvis was performed. Contiguous axial images were obtained at 3 mm slice thickness through the chest, abdomen and pelvis. Coronal and sagittal reconstructions at 3 mm slice thickness were performed. No intravenous or oral contrast agents were administered. FINDINGS: Please note that the study is limited without intravenous contrast. CHEST: LUNG/PLEURA/LARGE AIRWAYS: Dugu-hw-qubrpmdt left and trace right pleural effusion. No [...] JARED GALLARDO MD [facility] Consult - Neuroon 05-03-2020 Consult - Neuro [...] The patient also has a history of Plumas's disease Orthostatic hypotension She was on B12 [...] penicillins: Rash Objective: Objective Information: T PRBPSpO2 [id number]/9593% Date/Time05/02 19: 19: 19: 19: 19:16 Range(36.2C [...] fasciculations or involuntary movements are seen. On [place] testing, there is no pronation or drift. [...] RA Area A4C: 16.4 cm2 RA Major [place]ham A4C: 5.0 cm M-MODE MEASUREMENTS: Normal Ranges: [...] 1.2 m/s (0.6-0.9m/s) PV Max P.2 mmHg [id number] Tremayne Mcleod MD Electronically signed on 05/02/2020 [...] with you Consult Status: Consult Order ID: [id number] Electronic Signatures: Vicky Boyd) (Signed 02-May-2020 23:13) Authored: Service, History of Present Illness, Allergies, Objective, Assessment/Recommendatio ns, Note Completion Last Updated: 02-May-2020 23:13 by Vicky Boyd) [facility] Consult-Infectious Diseaseon 05-03-2020 Consult-Infectious Disease Service: Service: [...] penicillins: Rash Consult Status: Consult Order ID: [id number] Electronic Signatures: Di Estrada () (Signed 04-May-2020 06:05) Authored: Service, History of Present Illness, Allergies, Assessment/Recommendatio ns, Note Completion Last Updated: 04-May-2020 06:05 by Di Estrada () Normal [facility] Daily Progress Note-Medicine on 05-03-2020 Daily Progress Note-Medicine Service: Medicine Subjective Data: LINDA PERALTA is a 75 year old Female who is Hospital Day # 3. Patient laying in bed has fatigue denies any pain no chest pain or shortness of breath has nausea but no vomiting. Objective Data: Objective Information: T PRBPSpO2 Value36.84263914/8596% Date/Time05/03 7: 7: 7: 7: 7:33 Range(36.3C - 37.3C ) (94 - 95 ) (17 - 18 ) (132 - 176 )/ (85 - 106 ) (93% - 96% ) Highest temp of 37.3 C was recorded at 05/02 23:10 Pain reported at 05/03 10:44: 0 = None ---- Intake and Output ----- Mn/Dy/Year TimeIntakeOutputNet May 03, 2020 6:00 [id number] May 02, 2020 2:00 [id number] The Intake and Output Totals for the last 24 hours are: IntakeOutputNet [id number] Physical Exam by System: Constitutional: Well developed, [...] Mild to moderately elevated pulmonary artery pressure. [id number] Tremayne Mcleod MD Electronically signed on 05/02/2020 [...] by Nani Stanley) [facility] Daily Progress Note-Nephrolo gyon 05-03-2020 Daily Progress Note-Nephrology Service: Nephrology Subjective Data: LINDA PERALTA is a 75 year old Female who is Hospital Day # 3. renal function stable, Ca better, BP better. Objective Data: Objective Information: T PRBPSpO2 Value36.63664023/8596% Date/Time05/03 7: 7: 7: 7: 7:33 Range(36.3C - 37.3C ) (94 - 95 ) (17 - 18 ) (132 - 176 )/ (85 - 106 ) (93% - 96% ) Highest temp of 37.3 C was recorded at 05/02 23:10 Pain reported at 05/03 10:44: 0 = None ---- Intake and Output ----- Mn/Dy/[facility] May 03, 2020 6:00 [id number] May 02, 2020 2:00 [id number] The Intake and Output Totals for the last 24 hours are: IntakeOutputNet [id number] Constitutional: Alert, in no acute distress HEENT: [...] partial nephrectomy, DVT/PE who was initially at [facility] for AMS, hypercalcemia and hypotension now transferred here. 1. ANGELA on CKD: previously hypotensive at [facility], now hypertensive, also CRS as pt is [...] by Leigh Billy) [facility] [address] Daily Progress Note-Neurolog yon 05-03-2020 Daily Progress Note-Neurology Service: Neurology Subjective Data: LINDA PERALTA is a 75 year old Female who is Hospital Day # 3. The patient examined feeling weak all over Overall intake output He is urinated Maalox did not help. She did not want Zofran or Phenergan. Objective Data: Objective Information: T PRBPSpO2 Value36.27579212/9296% Date/Time05/03 19: 19: 19: 19: 19:16 Range(36.3C - 37.3C ) (89 - 95 ) (16 - 18 ) (132 - 162 )/ (85 - 95 ) (93% - 96% ) Highest temp of 37.3 C was recorded at 05/02 23:10 Pain reported at 05/03 10:44: 0 = None ---- Intake and Output ----- Mn/Dy/Year TimeIntakeOutputNet May 03, 2020 2:00 [id number] May 03, 2020 6:00 [id number] The Intake and Output Totals for the last 24 hours are: IntakeOutputNet [id number] Physical Exam by System: Neurological: The patient [...] Reference Range: STRAW,YELLOW Appearance, Urine CLEAR Specific [place], Urine 1.008 pH, Urine 6.0 Protein, Urine [...] Level 1.8 Comprehensive Metabolic Panel Trending View [id number] 05:31:00 02-May-2020 02:22:00 Glucose, Serum93 184 H NA138 138 K3.3 L 4.2 CL101 101 Bicarbonate, Serum26 26 Anion Gap, Serum14 15 BUN86 H 84 H CREAT2.39 H 2.31 H GFR-Non [id number] A 20 A GFR- Fasboopd75 A 24 A Calcium, Serum10.8 H 12.3 [...] Updated: 03-May-2020 20:53 by Vicky Boyd) Normal [facility] FOLATE, SERUMon 05-03-2020 Folate [Mass/Vol] 13.5 ng/mL Normal >5.0 [facility] Comment on above: Result Comment: Low <3.4 Borderline 3.4-5.0 Normal >5.0 . Patients receiving more than 5 mg/day of biotin may have interference in test results. A sample should be taken no sooner than eight hours after previous dose. Contact the testing laboratory for additional information. Performed By: #### C MP #### [address] [phone] LACTATEon 05-03-2020 Lactate [Moles/Vol] 1.8 mmol/L Normal 0.4 - 2.0 [facility] Comment on above: Result Comment: Nadia puncture immediately after or during the administration of Metamizole may lead to falsely low results. Testing should be performed immediately prior to Metamizole dosing. Performed By: #### C BC #### [facility] [address] [place], [place] [phone] PARATHYROID HORMONE,INTACTon 05-03-2020 PARATHYROID HORMONE,INTACT 19.6 pg/mL Normal 12.0 - 88.0 [facility] Comment on above: Performed By: #### P TH ####[facility] [place], [place] [id number] PT/INRon 05-03-2020 INR Coag (PPP) [Relative time] 2.8 {INR} High 0.9 - 1.1 [facility] Comment on above: Performed By: #### P TINR ####[facility] [place] [phone] PT Coag (PPP) [Time] 33.4 s High 10.1 - 13.3 [facility] Comment on above: Performed By: #### P TINR ####[facility] [place] [address] [id number] UA MICROSCOPICon 05-03-2020 MUCUS 1+ /LPF Normal [facility] Comment on above: Performed By: #### P R12 #### [facility] [address] [place] [address] RBC 9 /HPF Abnormal 0-5 [facility] Comment on above: Performed By: #### P R12 #### [facility] [address] [place] [address] SQUAMOUS EPITH. CELLS 2 /HPF Normal [facility] Comment on above: Performed By: #### P R12 #### [facility] [address] [place] [address] WBC 7 /HPF Abnormal 0-5 [facility] Comment on above: Performed By: #### P R12 #### [facility] [address] [place] [address] URINALYSISon 05-03-2020 Appearance (U) Canceled Normal [facility] Comment on above: Order Comment: TEST URINALYSIS WAS CANCELLED, 05/03/2020 14:06 DUPLICATE ORDER. Performed By: #### U A ####[address] [phone] ASCORBIC ACID Canceled Normal [facility] Comment on above: Order Comment: TEST URINALYSIS WAS CANCELLED, 05/03/2020 14:06 DUPLICATE ORDER. Result Comment: Conc entrations > = 20 mg/dL of ascorbic acid can be expected to cause strong interference in the reactions testing for glucose, nitrite and blood. It is recommended to discontinue Vitamin C administration and retest in 10 hours. Performed By: #### U A ####[address] [id number] Bilirubin (U) [Mass/Vol] Canceled Normal [facility] Comment on above: Order Comment: TEST URINALYSIS WAS CANCELLED, 05/03/2020 14:06 DUPLICATE ORDER. Performed By: #### U A ####[address] [id number] BLOOD Canceled Normal [facility] Comment on above: Order Comment: TEST URINALYSIS WAS CANCELLED, 05/03/2020 14:06 DUPLICATE ORDER. Performed By: #### U A ####[address] [id number] Color (U) Canceled Normal [facility] Comment on above: Order Comment: TEST URINALYSIS WAS CANCELLED, 05/03/2020 14:06 DUPLICATE ORDER. Performed By: #### U A ####[address] [id number] Glucose [Mass/Vol] Canceled Normal [facility] Comment on above: Order Comment: TEST URINALYSIS WAS CANCELLED, 05/03/2020 14:06 DUPLICATE ORDER. Performed By: #### U A ####[address] [id number] Ketones Ql (U) Canceled Normal [facility] Comment on above: Order Comment: TEST URINALYSIS WAS CANCELLED, 05/03/2020 14:06 DUPLICATE ORDER. Performed By: #### U A ####[address] [id number] Leukocyte esterase Test strip Ql (U) Canceled Normal [facility] Comment on above: Order Comment: TEST URINALYSIS WAS CANCELLED, 05/03/2020 14:06 DUPLICATE ORDER. Performed By: #### U A ####[address] [id number] Nitrite Ql (U) Canceled Normal [facility] Comment on above: Order Comment: TEST URINALYSIS WAS CANCELLED, 05/03/2020 14:06 DUPLICATE ORDER. Performed By: #### U A ####[address] [id number] pH (Bld) Canceled Normal [facility] Comment on above: Order Comment: TEST URINALYSIS WAS CANCELLED, 05/03/2020 14:06 DUPLICATE ORDER. Performed By: #### U A ####[address] [id number] Protein (U) [Mass/Vol] Canceled Normal [facility] Comment on above: Order Comment: TEST URINALYSIS WAS CANCELLED, 05/03/2020 14:06 DUPLICATE ORDER. Performed By: #### U A ####[address] [id number] Specific gravity (U) [Rel density] Canceled Normal [facility] Comment on above: Order Comment: TEST URINALYSIS WAS CANCELLED, 05/03/2020 14:06 DUPLICATE ORDER. Performed By: #### U A ####[address] [id number] Urobilinogen Qn (U) Canceled Normal [facility] Comment on above: Order Comment: TEST URINALYSIS WAS CANCELLED, 05/03/2020 14:06 DUPLICATE ORDER. Performed By: #### U A ####[address] [id number] URINALYSIS WITH CULTURE IF I NDICATEDon 05-03-2020 Appearance (U) CLEAR Normal CLEAR [facility] Comment on above: Performed By: #### C MP #### [address] [id number] Bilirubin (U) [Mass/Vol] Negative Normal NEGATIVE [facility] Comment on above: Performed By: #### C MP #### [address] [id number] BLOOD SMALL(1+) Abnormal NEGATIVE [facility] Comment on above: Performed By: #### C MP #### [address] [id number] Color (U) STRAW Normal STRAW,YELLOW [facility] Comment on above: Performed By: #### C MP #### [address] [id number] Glucose [Mass/Vol] Negative Normal NEGATIVE [facility] Comment on above: Performed By: #### C MP #### [address] [id number] Ketones Ql (U) Negative Normal NEGATIVE [facility] Comment on above: Performed By: #### C MP #### [address] [id number] Leukocyte esterase Test strip Ql (U) SMALL (1+) Abnormal NEGATIVE [facility] Comment on above: Performed By: #### C MP #### [address] [id number] Nitrite Ql (U) Negative Normal NEGATIVE [facility] Comment on above: Performed By: #### C MP #### [address] [id number] pH (Bld) 6.0 Normal 5.0 - 8.0 [facility] Comment on above: Performed By: #### C MP #### [address] [id number] Protein (U) [Mass/Vol] Negative Normal NEGATIVE [facility] Comment on above: Performed By: #### C MP #### [address] [id number] Specific gravity (U) [Rel density] 1.008 Normal 1.005 - 1.035 [facility] Comment on above: Performed By: #### C MP #### [address] [id number] Urobilinogen Qn (U) <2.0 Normal 0.0 - 1.9 [facility] Comment on above: Performed By: #### C MP #### [address] [place] [phone] Lab Specimen Source Normal [facility] Comment on above: Performed By: #### C MP #### [address] [id number] Performed By: #### P R12 #### [facility] [address] [place] [address] URINE CULTURE,BACTERIALon URINE CULTURE,BACTERIAL PATIENT: LINDA PERALTA LOCATION: [address]#: [id number] : 41 AGE: SEX: F ORDERED BY: NANI STANLEY SOURCE: URINE COLLECTED: 05/03/20 11:12 ANTIBIOTICS AT [facility].: RECEIVED : 05/03/20 21:18 SITE: R E S U L T S URINE CULTURE,BACTERIAL FINAL 05/04/20 14:08 NO GROWTH Normal [facility] Comment on above: Performed By: #### P R12 #### [facility] [address] [place] [id number] US CAROTID BILATERAL DUPLEXo n 05-03-2020 US CAROTID BILATERAL DUPLEX Patient Name: LINDA PERALTA STUDY: US CAROTID BILATERAL DUPLEX; 05/03/2020 10:18 am INDICATION: Change in the mental status question of strokes, gait ataxia and falls, fainting spells. COMPARISON: None. ACCESSION NUMBER(S): [id number] ORDERING CLINICIAN: VICKY BOYD FINDINGS: Duplex scan [...] Electronically signed by: VICKY BOYD MD Normal [facility] Admission Risk Screen - Adul ton [...] DNR-CCA Availabilityplaced on chart DNR-CCA Placed on [id number] Advanced Directive Commentno intubation [place]illespie Fall Screen: [...] instruction; written material Cultural Considerationsnone Developmental Considerationsnone Taoist Considerationsnone Learning Assessment (Other Learner): Other learner availableno Depression Screen: During the past month, have you often been bothered by feeling down, depressed or hopelessyes is sick (dx of [place]) During the past month, have you often had little interest or pleasure in doing thingsno Have you had any thoughts of harming anyone elseno [place] Suicide: Risk Screen Not Applicable/Able to Answerable to be screened In the Past Month: Have you wished you were or could go to sleep and not wake upno In the Past Month: Have you had any actual thoughts of killing yourselfno Lifetime: Have you ever done, started to do, or prepared to do anything to end your lifeno [place] Suicide Risknegative Adult Nutrition Screen: Have you [...] Spiritual Screen: Are there any cultural, spiritual, taoism practices/values/needs that are important for us to knowno CAGE: [place] an [place] a [place] Center [place] [place] no Vaccinations: Vaccination - Influenza Vaccination Screen: [...] 02-May-2020 01:37 by Nehemias Mercado (RN) Normal [facility] BNPon 05-02-2020 Natriuretic peptide B (Bld) [Mass/Vol] 1665 pg/mL High 0 - 99 [facility] Comment on above: Result Comment: . <1 00 pg/mL - Heart failure unlikely 100-299 pg/mL - Intermediate probability of acute heart . failure exacerbation. Correlate with clinical . context and patient history. >=300 pg/mL - Heart Failure likely. Correlate with clinical . context and patient history. BNP testing is performed using different testing methodology at [facility] than at other [facility]. Direct result comparisons should only be made within the same method. Performed By: #### C BC #### [address] [id number] C-REACTIVE PROTEINon 021 CRP [Mass/Vol] 1.41 mg/dL Abnormal [facility] Comment on above: Result Comment: REF VALUE < 1.00 Performed By: #### C MP #### [address] [id number] CALCIUMon 05-02-2020 Calcium [Mass/Vol] Canceled Normal [facility] Comment on above: Order Comment: TEST CALCIUM WAS CANCELLED, 05/02/2020 12:20 added per RN 05/02/2020 12:20. Performed By: #### C A #### [address] [id number] CALCIUM, IONIZEDon 1 CALCIUM,IONIZED 1.71 mmol/L High 1.10 - 1.33 [facility] Comment on above: Performed By: #### C MP #### [address] [id number] CBC AND DIFFERENTIALon 05-02 % AUTOMATED IMMATURE GRAN 5.6 % High 0.0 - 0.9 [facility] Comment on above: Result Comment: Linda ture Granulocyte Count (IG) includes promyelocytes, myelocytes and metamyelocytes but does not include bands. Percent differential counts (%) should be interpreted in the context of the absolute cell counts (cells/L). Performed By: #### C BC #### [address] [id number] DIFFERENTIAL SEE MANUAL DIFF Normal [facility] Comment on above: Performed By: #### C BC #### [address] [id number] Erythrocyte distribution width (RBC) [Ratio] 15.7 % High 11.5 - 14.5 [facility] Comment on above: Performed By: #### C BC #### [address] [id number] Hematocrit (Bld) [Volume fraction] 34.1 % Low 36.0 - 46.0 [facility] Comment on above: Performed By: #### C BC #### [address] [id number] Hemoglobin (Bld) [Mass/Vol] 11.2 g/dL Low 12.0 - 16.0 [facility] Comment on above: Performed By: #### C BC #### [address] [id number] MCHC (RBC) [Mass/Vol] 32.8 g/dL Normal 32.0 - 36.0 [facility] Comment on above: Performed By: #### C BC #### [address] [id number] MCV (RBC) [Entitic vol] 90 fL Normal 80 - 100 [facility] Comment on above: Performed By: #### C BC #### [address] [id number] Platelets (Bld) [#/Vol] 378 10*3/uL Normal 150 - 450 [facility] Comment on above: Performed By: #### C BC #### [address] [id number] RBC (Bld) [#/Vol] 3.81 x10E12/L Low 4.00 - 5.20 [facility] Comment on above: Performed By: #### C BC #### [address] [id number] WBC (Bld) [#/Vol] 17.9 10*3/uL High 4.4 - 11.3 [facility] Comment on above: Performed By: #### C BC #### [address] [id number] CHEST 2 VIEW PA AND LATon CHEST 2 VIEW PA AND LAT Patient Name: LINDA PERALTA STUDY: TH CHEST 2 VIEW PA AND LAT; 05/02/2020 12:49 pm INDICATION: hypoxia. COMPARISON: None. ACCESSION NUMBER(S): [id number] ORDERING CLINICIAN: NANI STANLEY FINDINGS: CARDIOMEDIASTINAL SILHOUETTE AND VASCULATURE: Cardiac size: Mild cardiomegaly Aortic shadow: Within normal limits considering technique Mediastinal contours: Within normal limits considering technique Pulmonary vasculature: The central vasculature is unremarkable LUNGS: There is opacification at the left lower lung probably from [id number] pleural effusion and underlying atelectasis or consolidation. [...] Electronically signed by: ALBERTO HARRIS MD Normal [facility] COAGULATION SCREENon 021 aPTT Coag (Bld) [Time] 25 s Normal 25 - 35 [facility] Comment on above: Result Comment: THE APTT IS NO LONGER USED FOR MONITORING UNFRACTIONATED HEPARIN THERAPY. FOR MONITORING HEPARIN THERAPY, USE THE HEPARIN ASSAY. Performed By: #### C MP #### [address] [id number] INR Coag (PPP) [Relative time] 2.4 {INR} High 0.9 - 1.1 [facility] Comment on above: Performed By: #### C MP #### [address] [id number] PT Coag (PPP) [Time] 28.4 s High 10.1 - 13.3 [facility] Comment on above: Performed By: #### C MP #### [address] [id number] COMPREHENSIVE PANELon 2020 Albumin [Mass/Vol] 3.0 g/dL Low 3.4 - 5.0 [facility] Comment on above: Performed By: #### C MP #### [address] [id number] ALP [Catalytic activity/Vol] 79 U/L Normal 33 - 136 [facility] Comment on above: Performed By: #### C MP #### [address] [id number] ALT [Catalytic activity/Vol] 64 U/L High 7 - 45 [facility] Comment on above: Result Comment: Liz ents treated with Sulfasalazine may generate falsely decreased results for ALT. Performed By: #### C MP #### [address] [id number] Anion gap [Moles/Vol] 15 mmol/L Normal 10 - 20 [facility] Comment on above: Performed By: #### C MP #### [address] [id number] AST [Catalytic activity/Vol] 18 U/L Normal 9 - 39 [facility] Comment on above: Performed By: #### C MP #### [address] [id number] Bilirubin [Mass/Vol] 0.7 mg/dL Normal 0.0 - 1.2 [facility] Comment on above: Performed By: #### C MP #### [address] [id number] Calcium [Mass/Vol] 12.3 mg/dL High 8.6 - 10.3 [facility] Comment on above: Performed By: #### C MP #### [address] [id number] Chloride [Moles/Vol] 101 mmol/L Normal 98 - 107 [facility] Comment on above: Performed By: #### C MP #### [address] [id number] Creatinine [Mass/Vol] 2.31 mg/dL High 0.50 - 1.05 [facility] Comment on above: Performed By: #### C MP #### [address] [id number] GFR- AM. 24 mL/min/1.73m2 Abnormal >60 [facility] Comment on above: Result Comment: CALC ULATIONS OF ESTIMATED GFR ARE PERFORMED USING THE MDRD STUDY EQUATION FOR THE IDMS-TRACEABLE CREATININE METHODS. CLIN CHEM 2007;53:766-72 Performed By: #### C MP #### [address] [id number] GFR-NON AM. 20 mL/min/1.73m2 Abnormal >60 [facility] Comment on above: Performed By: #### C MP #### [address] [id number] Glucose [Mass/Vol] 184 mg/dL High 74 - 99 [facility] Comment on above: Performed By: #### C MP #### [address] [id number] HCO3 (Bld) [Moles/Vol] 26 mmol/L Normal 21 - 32 [facility] Comment on above: Performed By: #### C MP #### [address] [id number] Potassium [Moles/Vol] 4.2 mmol/L Normal 3.5 - 5.3 [facility] Comment on above: Performed By: #### C MP #### [address] [id number] Sodium [Moles/Vol] 138 mmol/L Normal 136 - 145 [facility] Comment on above: Performed By: #### C MP #### [address] [id number] Urea nitrogen [Mass/Vol] 84 mg/dL High 6 - 23 [facility] Comment on above: Performed By: #### C MP #### [address] [id number] CREATINE KINASEon 05-02-2020 CK [Catalytic activity/Vol] 28 U/L Normal 0 - 215 [facility] Comment on above: Performed By: #### C A #### [address] [id number] Consult-Nephrologyon 021 Consult-Nephrology Service: Service: Nephrology Consult: Consult requested by (Attending Name): Nani Stanley Reason: ANGELA History of Present Illness: HPI: LINDA PERALTA is a 75 year old Female w/ history s/f HTN, CAD, moris's disease, solitary kidney c/b RCC s/p partial nephrectomy, DVT/PE who was initially at [facility] for AMS, hypercalcemia and hypotension now transferred [...] at 31. Pt states she sees a zinc plater Dr. Tarango PMHx: DVT/PE on warfarin, renal [...] penicillins: Rash Objective: Objective Information: T PRBPSpO2 Value36.36015904/8396% Date/Time05/02 8: 10: 8: 10: 8:30 Range(36.2C [...] partial nephrectomy, DVT/PE who was initially at [facility] for AMS, hypercalcemia and hypotension now transferred here. 1. ANGELA on CKD: previously hypotensive at [facility], now hypertensive, also CRS as pt is [...] to follow Consult Status: Consult Order ID: [id number] Electronic Signatures: Leigh Billy) (Signed 02-May-2020 12:52) Authored: Service, History of Present Illness, Allergies, Objective, Assessment/Recommendatio ns, Note Completion Last Updated: 02-May-2020 12:52 by Leigh Billy) Normal [facility] Daily Progress Note-Medicine on 05-02-2020 Daily [...] changes. Objective Data: Objective Information: T PRBPSpO2 Value36.16994688/8396% Date/Time05/02 8: 10: 8: 10: 8:30 Range(36.2C [...] 1665, echo normal EF. Venous Doppler from [facility] 04/24 - for DVT -Appears she received fluids, furosemide, pamidronate [facility] -previously reported extreme elevation D > 250 at [facility], CT chest abdomen pelvis nonacute Impression 2: CKD, SOLITARY KIDNEY S/P PARTIAL NEPHRECTOMY benign RCC Plan for Impression 2: -Nephrology following -Baseline renal function unknown. Presenting creatinine 3/3 at [facility] 1.82 Impression 3: Altered mental status Plan for Impression 3: -Neurology consult Impression 4: ADDISONS DISEASE Plan for Impression 4: -Hydrocortisone, fludrocortisone -Endocrinology consult Impression 5: RECENT UTI Plan for Impression 5: -Repeat UA, reportedly [facility] unknown course of therapy, if any -WBC [...] Signature/Cosignature/At testation: Note Completion: I am a: UNIT AID Student UNIT AID Student Julieth was present with the UNIT AID student who participated in the documentation of this note. I have personally seen and re-examined the patient and performed the medical decision-making components (assessment and plan of care). I have reviewed the UNIT AID student documentation and verified the findings in the note as written with additions or exceptions as stated in the body of this note. I personally evaluated the patient [id number] Comments/ Additional Findings Patient was seen and [...] Updated: 02-May-2020 16:15 by Nani Stanley) Normal [facility] History and Physicalon 05-02 History and [...] a day. Objective: Objective Information: T PRBPSpO2 Value36.75027046/34684% Date/Time05/02 4: 4: 19: 4: 4:22 Range(36.3C [...] to decline elective intubation order entered in [facility] [facility] Signatures/Attestation/C ertification: Note Completion Attending Provider Inpatient Certification StatementI certify this patients need for inpatient care based on the above documentation including; the order to admit as inpatient, the anticipated length of stay, diagnosis, problem list and plan of care, and discharge plan. Admission Order - View OnlyCurrent Admission Order. Admit to Inpatient Adult Community Transfer to, [facility]: [address] Admitting Diagnosis, E83.52 Hypercalcemia , Attending [...] Updated: 02-May-2020 12:26 by Leigh Billy) Normal [facility] LACTATEon 05-02-2020 Lactate [Moles/Vol] 1.8 mmol/L Normal 0.4 - 2.0 [facility] Comment on above: Result Comment: Nadia puncture immediately after or during the administration of Metamizole may lead to falsely low results. Testing should be performed immediately prior to Metamizole dosing. Performed By: #### C BC #### [facility] [address] [place], [place] [id number] MAGNESIUMon 05-02-2020 Magnesium [Mass/Vol] 2.00 mg/dL Normal 1.60 - 2.40 [facility] Comment on above: Performed By: #### M G ####[facility] [place], [place] [id number] MANUAL DIFFERENTIALon 2020 % EOSINOPHIL 0.0 % Normal 0.0 - 6.0 [facility] Comment on above: Performed By: #### P R12 #### [facility] [address] [place] [address] % METAMYELOCYTE 3.0 % Normal 0.0 - 0.0 [facility] Comment on above: Performed By: #### P R12 #### [facility] [address] [place] [address] % MYELOCYTE 2.0 % Normal 0.0 - 0.0 [facility] Comment on above: Performed By: #### P R12 #### [facility] [address] [place] [address] % SEG NEUTROPHIL 81.0 % Normal 40.0 - 80.0 [facility] Comment on above: Result Comment: Perc ent differential counts (%) should be interpreted in the context of the absolute cell counts (cells/L). Performed By: #### P R12 #### [facility] [address] [place] [address] ANC 14.86 x10E9/L High 1.60 - 5.50 [facility] Comment on above: Performed By: #### P R12 #### [facility] [address] [place] [address] Band form neutrophils/100 WBC (Bld) 2.0 % Normal 0.0 - 5.0 [facility] Comment on above: Performed By: #### P R12 #### [facility] [address] [place] [address] BAND NEUTROPHIL 0.36 x10E9/L Normal 0.00 - 0.50 [facility] Comment on above: Performed By: #### P R12 #### [facility] [address] [place] [address] BASOPHIL 0.00 x10E9/L Normal 0.00 - 0.10 [facility] Comment on above: Performed By: #### P R12 #### [facility] [address] [place] [address] Basophils/100 WBC (Bld) 0.0 % Normal [facility] Comment on above: Performed By: #### P R12 #### [facility] [address] [place] [address] EOSINOPHIL 0.00 x10E9/L Normal 0.00 - 0.40 [facility] Comment on above: Performed By: #### P R12 #### [facility] [address] [place] [address] LYMPHOCYTE 1.07 x10E9/L Normal 0.80 - 3.00 [facility] Comment on above: Performed By: #### P R12 #### [facility] [address] [place] [address] Lymphocytes/100 WBC (Bld) 6.0 % Normal 13.0 - 44.0 [facility] Comment on above: Performed By: #### P R12 #### [facility] [address] [place] [address] Metamyelocytes/100 WBC (Bld) 0.54 x10E9/L Abnormal 0.00 - 0.00 [facility] Comment on above: Performed By: #### P R12 #### [facility] [address] [place] [address] MONOCYTE 1.07 x10E9/L High 0.05 - 0.80 [facility] Comment on above: Performed By: #### P R12 #### [facility] [address] [place] [address] Monocytes/100 WBC (Bld) 6.0 % Normal 2.0 - 10.0 [facility] Comment on above: Performed By: #### P R12 #### [facility] [address] [place] [address] MYELOCYTE 0.36 x10E9/L Abnormal 0.00 - 0.00 [facility] Comment on above: Performed By: #### P R12 #### [facility] [address] [place] [address] SEG NEUTROPHIL 14.50 x10E9/L High 1.60 - 5.00 [facility] Comment on above: Performed By: #### P R12 #### [facility] [address] [place] [address] OSMOLALITY, SERUMon 05-03-19 21 OSMOLALITY, SERUM 322 mOsm/kg H2O High 280 - 300 [facility] Comment on above: Performed By: #### O SMOL ####[facility] [place], [place] [id number] Order Reconciliationon 05-02 Order Reconciliation Page 1 [...] 1000 milligram(s) orally every 6 hours, As Tmcxfs95-Tst-8639 UNKNOWN UNKNOWN Reviewed and Held atorvastatin 10 mg oral tablet 1 tab(s) orally once a day (at bedtime) UNKNOWN Atorvastatin Tablet (LIPITOR)DOSE = 10 mg Oral Dailyatorvastatin 10 mg oral tablet continued as the inpatient order Atorvastatin Calmoseptine 0.44%-20.6% topical ointment Apply topically to affected area 2 times a day, As [id number]-Flc- 2021 PM Menthol 0.44% - Zinc Oxide [...] oral tablet 1 tab(s) orally once a rzf35-Dye-8402 UNKNOWN UNKNOWN Reviewed and Held dupilumab 300 milligram(s) subcutaneous every 2 -[id number]-5337BLGYATF UNKNOWN Reviewed and Held Florinef Acetate 0.1 mg oral tablet 1 tab(s) orally once a pkm64-Nha-9239 UNKNOWN UNKNOWN Fludrocortisone Tablet (FLORINEF)DOSE = 0.1 [...] oral tablet 1 tab(s) orally once a pgw42-Nfy-3309VITMDSD UNKNOWN Hydrocortisone Tablet (CORTEF)DOSE = 10 mg Oral Dailyhydrocortisone 10 mg oral tablet continued as the inpatient order Hydrocortisone hydrocortisone 20 mg oral tablet 1 tab(s) orally once a fkg50-Sil-0655VIRCJTM UNKNOWN Hydrocortisone Tablet (CORTEF)DOSE = 20 mg Oral Daily 1800 hydrocortisone 20 mg oral tablet continued as the inpatient order Hydrocortisone lactobacillus acidophilus-lactobacillu s casei oral delayed release capsule 1 cap(s) orally once a jpn59-Xsh-6066JHNHCHU UNKNOWN Reviewed and Held nitroglycerin 0.4 mg sublingual tablet 1 tab(s) sublingual every 5 minutes, As Xhmaba14-Qkt-3649JFGTFCM UNKNOWN Nitroglycerin SubLingual Tablet (NITROSTAT)DOSE = 0.4 mg SubLingual Every 5 Minutes, PRN Anginanitroglycerin 0.4 mg sublingual tablet continued as the inpatient order Nitroglycerin SubLingual warfarin 2.5 mg oral tablet 1 tab(s) orally once a kbg91-Sxk-969762-Nhw-966 1 PM Blood in Urine, Monitor for [...] oral tablet 1 tab(s) orally once a dzg72-Wkb-738706-Uzg-037 1 PM Bleeding, Monitor for Call physician [...] oral tablet 1 tab(s) orally once a isx25-Iwj-102608-Vmm-309 1 PM Nursing to ensure Your Guide [...] oral tablet 1 tab(s) orally once a ggs99-Nss-320448-Qhq-087 1 PM Communication Order INR Goal 2 [...] oral tablet 1 tab(s) orally once a jvf53-Gks-262691-Qpl-415 1 PM Warfarin Tablet (COUMADIN)DOSE = 2.5 [...] mL Run at: 100 mL/hr IntraVenous Normal [facility] PARATHYROID HORMONE,INTACTon 05-02-2020 PARATHYROID HORMONE,INTACT Canceled Normal [facility] Comment on above: Order Comment: TEST PARATHYROID HORMONE,INTACT WAS CANCELLED, 05/02/2020 12:20 added per RN05/02/2020 12:20. Performed By: #### P TH ####[address] [id number] PHOSPHORUSon 05-02-2020 Phosphate [Mass/Vol] 6.4 mg/dL High 2.5 - 4.9 [facility] Comment on above: Result Comment: The performance characteristics of phosphorus testing in heparinized plasma have been validated by the individual laboratory site where testing is performed. Testing on heparinized plasma is not approved by the FDA; however, such approval is not necessary. Performed By: #### C MP #### [address] [id number] PREALBUMINon 05-02-2020 Prealbumin [Mass/Vol] 28.0 mg/dL Normal 18.0 - 40.0 [facility] Comment on above: Performed By: #### C BC #### [address] [id number] PROTEIN ELECTROPHORESIS + IM MUNOFIXATION, SERUMon 05-02-2020 Protein [Mass/Vol] 5.5 g/dL Low 6.4 - 8.2 [facility] Comment on above: Performed By: #### I FE2 ####[address] [id number] [place] [address] Performed By: #### C MP #### [address] [id number] PROTEIN ELECTROPHORESIS,SERU 05-02-2020 Albumin [Mass/Vol] Canceled Normal [facility] Comment on above: Order Comment: TEST PROTEIN ELECTROPHORESIS,SERUM WAS CANCELLED, 05/02/2020 12:20 added per RN 05/02/2020 12:20. Performed By: #### S PE2 #### [facility] [address] [place] [address] ALPHA 1 GLOBULIN Canceled Normal [facility] Comment on above: Order Comment: TEST PROTEIN ELECTROPHORESIS,SERUM WAS CANCELLED, 05/02/2020 12:20 added per RN 05/02/2020 12:20. Performed By: #### S PE2 #### [facility] [address] [place] [address] ALPHA 2 GLOBULIN Canceled Normal [facility] Comment on above: Order Comment: TEST PROTEIN ELECTROPHORESIS,SERUM WAS CANCELLED, 05/02/2020 12:20 added per RN 05/02/2020 12:20. Performed By: #### S PE2 #### [facility] [address] [place] [address] BETA GLOBULIN Canceled Normal [facility] Comment on above: Order Comment: TEST PROTEIN ELECTROPHORESIS,SERUM WAS CANCELLED, 05/02/2020 12:20 added per RN 05/02/2020 12:20. Performed By: #### S PE2 #### [facility] [address] [place] [address] GAMMA GLOBULIN Canceled Normal [facility] Comment on above: Order Comment: TEST PROTEIN ELECTROPHORESIS,SERUM WAS CANCELLED, 05/02/2020 12:20 added per RN 05/02/2020 12:20. Performed By: #### S PE2 #### [facility] [address] [place] [address] INTERPRETATION Canceled Normal [facility] Comment on above: Order Comment: TEST PROTEIN ELECTROPHORESIS,SERUM WAS CANCELLED, 05/02/2020 12:20 added per RN 05/02/2020 12:20. Performed By: #### S PE2 #### [facility] [address] [place] [address] Protein [Mass/Vol] Canceled Normal [facility] Comment on above: Order Comment: TEST PROTEIN ELECTROPHORESIS,SERUM WAS CANCELLED, 05/02/2020 12:20 added per RN 05/02/2020 12:20. Performed By: #### S PE2 #### [facility] [address] [place] [address] Order Comment: TEST PTH RELATED PROTEIN WAS CANCELLED, 05/02/2020 12:20 added per RN05/02/2020 12:20. Performed By: #### P R12 #### [facility] [address] [place] [address] Patient Profile - Adult v2on 05-02-2020 Patient Profile - Adult v2 Profile: Initial Info: How to be AddressedLinda Spoken Language PreferredEnglish Source of Informationhealth record; patient Stated Reason for Admissionpatient states I fell. Primary Contact Name and NumberSouleymane Lopez - [phone] (daughter) Other Contact Names and NumbersWilman Peralta - [phone] - Next of Kin - Patients Patient Belongingsnone Arrived Fromspital Medications Brought to Hospitalno Are you currently using the Personal Electronic Health Record or [employer] Wants Family/Rep Notified of Admissionyes, primary contact Notify PCPnotify PCP Informed of Patient Visiting Rightsyes General Health: Weight in kg74.5 kilogram(s) Weight in uxw079.2 pound(s) Weight Methodactual (measured) Scale Typebed Height [...] Lives Withspouse Living Arrangementshouse Services [facility] Anticipated Transition Tostewart Significant IndicatorsComplete Information Review: Allergies, Home Meds and Significant Events have been Reviewed and Verified with Patient/Familyyes ALLERGY, INTOLERANCE, ADVERSE EVENT: Allergies: ciprofloxacin: Drug, Rash, Active penicillins: Drug Category, Rash, Active Electronic Signatures: Nehemias Mercado (ROSS) (Signed 02-May-2020 01:28) Authored: Initial Info, General Health, RSP Based Care, Substance, Health Mgmt, Relationship/Environ, Additional Information Last Updated: 02-May-2020 01:28 by Nehemias Mercado (ROSS) Normal [facility] RED CELL MORPHOLOGYon 2020 RBC morphology finding Nom (Bld) SEE COMMENT Normal [facility] Comment on above: Result Comment: NO S IGNIFICANT RBC ABNORMALITIES SEEN ON SMEAR REVIEW. Performed By: #### C A #### [facility] [address] [place], [place] [id number] RETICULOCYTESon 05-02-2020 RETIC # 0.054 x10E12/L Normal 0.017 - 0.110 [facility] Comment on above: Performed By: #### R ETIC ####[facility] [place], [place] [id number] RETIC % 1.4 % Normal 0.5 - 2.0 [facility] Comment on above: Performed By: #### R ETIC ####[facility] [place], [place] [id number] RETIC-HB 37 pg Normal 28 - 38 [facility] Comment on above: Performed By: #### R ETIC ####[id number] [place], [place] [id number] SPE PATH REVIEWon 05-02-2020 PATH REVIEW-SPE Canceled Normal [facility] Comment on above: Order Comment: TEST SPE PATH REVIEW WAS CANCELLED, 05/02/2020 12:20 added per RN 112:20. Result Comment: By h er/his signature above, the Pathologist listed as making the final interpretation certifies that she/he has personally reviewed this case. Performed By: #### P R12 #### [facility] [address] [place] [address] THYROXINE,FREEon 05-02-2020 THYROXINE,FREE 1.30 ng/dL High 0.61 - 1.12 [facility] Comment on above: Result Comment: Thyr oxine Free testing is performed using different testing methodology at [facility] than at other [facility]. Direct result comparisons should only be made [...] blood draw. Performed By: #### T 4FRE ####[facility] [place], [place] [id number] TSHon 05-02-2020 TSH Qn 0.69 m[IU]/L Normal 0.44 - 3.98 [facility] Comment on above: Result Comment: TSH testing is performed using different testing methodology at [facility] than at other [facility]. Direct result comparisons should only be made within the same method. Performed By: #### C BC #### [facility] [address] [place], [place] [id number] URIC ACIDon 05-02-2020 Urate [Mass/Vol] 10.4 mg/dL High 2.3 - 6.7 [facility] Comment on above: Result Comment: Nadia puncture immediately after or during the administration of Metamizole may lead to falsely low results. Testing should be performed immediately prior to Metamizole dosing. Performed By: #### U SANDI ####[facility] [place], [place] [id number] US RENAL BILATon 05-02-2020 US RENAL BILAT Patient Name: LINDA PERALTA STUDY: US RENAL BILAT; 05/02/2020 12:38 pm INDICATION: ANGELA. COMPARISON: None. ACCESSION NUMBER(S): [id number] ORDERING CLINICIAN: NANI STANLEY TECHNIQUE: Multiple images [...] Electronically signed by: ALBERTO HARRIS MD Normal [facility] VITAMIN D 1,25-DIHYDROXYon 0 05-02-2020 VITAMIN D 1,25-DIHYDROXY Canceled Normal [facility] Comment on above: Order Comment: TEST VITAMIN D 1,25-DIHYDROXY WAS CANCELLED, 05/02/2020 12:20 added per RN05/02/2020 12:20. Performed By: #### V TDDI ####[address] [address] VITAMIN D, 25-HYDROXYon 04-20 VITAMIN D, 25-HYDROXY 33 ng/mL Normal [facility] Comment on above: Result Comment: . DEFICIENCY: < 20 NG/ML INSUFFICIENCY: 20-29 NG/ML SUFFICIENCY: 30-100 NG/ML THIS ASSAY ACCURATELY QUANTIFIES THE SUM OF VITAMIN D3, 25-HYDROXY AND VIT D2,25-HYDROXY. Performed By: #### C #### [address] [phone] Culture, urine Bacteria identified Cx Nom (U) Positive [facility] Work Phone: Bacteria identified Cx Nom (U) Escherichia coli [facility] Work Phone: Laboratory - Microbiology an d Antimicrobial susceptibility Bacteria identified Cx Nom (Bld) No growth in 5 days. [facility] Work Phone: Vital Signs Date Time Vital Sign Value Performing Clinician Facility 11-28-2024 11:17-0400 Body height 157.5 cm Basim Joel APRN - [employer] Work Phone: [facility] 11-28-2024 11:17-0400 Body mass index (BMI) [Ratio] 27.65 kg/m2 Basim Joel APRN - [employer] Work Phone: [facility] 11-28-2024 11:17-0400 Body weight 68.58 kg Basim Joel APRN - [employer] Work Phone: [facility] 11-28-2024 11:17-0400 Diastolic blood pressure 92 mm[Hg] Basim Bang [employer] Work Phone: [facility] 11-28-2024 11:17-0400 Heart rate 92 /min Basim Joel APRN - [employer] Work Phone: [facility] 11-28-2024 11:17-0400 SaO2% (BldA) [Mass fraction] 99 % Basim Joel APRN - [employer] Work Phone: [facility] 11-28-2024 11:17-0400 Systolic blood pressure 150 mm[Hg] Basim Bang [employer] Work Phone: [facility] 11-28-2024 10:00-0400 Body mass index (BMI) [Ratio] 27.98 kg/m2 Dylon Gupta UNIT AID [employer] Work Phone: [facility] 11-28-2024 10:00-0400 Body weight 69.4 kg Dylon Gupta UN[employer] AID - [employer] Work Phone: [facility] 11-14-2024 09:18-0400 Diastolic blood pressure 98 mm[Hg] Dr. Amos Floyd MD Work Phone: [facility] 11-14-2024 09:18-0400 Systolic blood pressure 139 mm[Hg] Dr. Amos Floyd MD Work Phone: [facility] 11-14-2024 09:02-0400 Body height 157.[address] Amos Floyd MD Work Phone: [facility] 11-14-2024 09:02-0400 Body mass index (BMI) [Ratio] 27.2 kg/m2 Dr. Amos Floyd MD Work Phone: [facility] 11-14-2024 09:02-0400 Body weight 67.[address] Amos Floyd MD Work Phone: [facility] 11-14-2024 09:02-0400 Heart rate 81 /min Dr. Amos Floyd MD Work Phone: [facility] 11-14-2024 09:02-0400 Respiratory rate 16 /min Dr. Amos Floyd MD Work Phone: [facility] 10-31-2024 10:49-0400 Body height 157.5 cm Basim Joel [employer] A[employer] - [employer] Work Phone: [facility] 10-31-2024 10:49-0400 Body mass index (BMI) [Ratio] 27.98 kg/m2 Basim Joel [employer] A[employer] - [employer] Work Phone: [facility] 10-31-2024 10:49-0400 Body weight 69.4 kg Basim Joel [employer] A[employer] - [employer] Work Phone: [facility] 10-31-2024 10:49-0400 Diastolic blood pressure 86 mm[Hg] Basim Joel [employer] A[employer] - [employer] Work Phone: [facility] 10-31-2024 10:49-0400 Heart rate 96 /min Basim Hernandezluisa Bang [employer] Work Phone: [facility] 10-31-2024 10:49-0400 SaO2% (BldA) [Mass fraction] 98 % Basim Joel [employer] A[employer] - [employer] Work Phone: [facility] 10-31-2024 10:49-0400 Systolic blood pressure 132 mm[Hg] Basim Hernandezluisa Bang [employer] Work Phone: [facility] 10-29-2024 10:41-0400 Body mass index (BMI) [Ratio] 28.06 kg/m2 Amos Floyd MD Work Phone: [facility] 10-29-2024 10:41-0400 Body temperature 97.5 [degF] Amos Floyd MD Work Phone: [facility] 10-29-2024 10:41-0400 Body weight 69.6 kg Amos Floyd MD Work Phone: [facility] 10-29-2024 10:41-0400 Diastolic blood pressure 72 mm[Hg] Amos Floyd MD Work Phone: [facility] 10-29-2024 10:41-0400 Heart rate 60 /min Amos Floyd MD Work Phone: [facility] 10-29-2024 10:41-0400 Respiratory rate 20 /min Amos Floyd MD Work Phone: [facility] 10-29-2024 10:41-0400 Systolic blood pressure 112 mm[Hg] Amos Floyd MD Work Phone: [facility] 10-24-2024 11:00-0400 Diastolic blood pressure 116 mm[Hg] Memo Canas MD Work Phone: [facility] 10-24-2024 11:00-0400 Heart rate 93 /min Memo Canas MD Work Phone: [facility] 10-24-2024 11:00-0400 Respiratory rate 27 /min Memo Canas MD Work Phone: [facility] [employer] 10-24-2024 11:00-0400 SaO2% (BldA) [Mass fraction] 96 % Memo Canas MD Work Phone: [facility] [employer] [facility] 10-24-2024 11:00-0400 Systolic blood pressure 134 mm[Hg] Memo Canas MD Work Phone: [facility] [employer] 10-24-2024 09:00-0400 Body temperature 95.5 [degF] Memo Canas MD Work Phone: [facility] [employer] 10-24-2024 08:22-0400 Body height 157.5 cm Memo Canas MD Work Phone: [facility] [employer] [facility] 10-24-2024 08:22-0400 Body mass index (BMI) [Ratio] 26.7 kg/m2 Memo Canas MD Work Phone: [facility] [employer] 10-24-2024 08:22-0400 Body weight 66.22 kg Memo Canas MD Work Phone: [facility] [employer] [facility] 09-19-2024 14:57-0400 Body height 157.5 cm Basim Joel APRN - TELLY Work Phone: [facility] 09-19-2024 14:57-0400 Body mass index (BMI) [Ratio] 29.26 kg/m2 Basim Joel APRN - TELLY Work Phone: [facility] [employer] [facility] 09-19-2024 14:57-0400 Body weight 72.58 kg Basim Bang CNP Work Phone: [facility] [employer] [facility] 09-19-2024 14:57-0400 Diastolic blood pressure 84 mm[Hg] Basim Bang CNP Work Phone: [facility] 09-19-2024 14:57-0400 Heart rate 90 /min Basim Bang CNP Work Phone: [facility] [employer] [facility] 09-19-2024 14:57-0400 SaO2% (BldA) [Mass fraction] 100 % Basim Wisam [employer] - [employer] Work Phone: [facility] 09-19-2024 14:57-0400 Systolic blood pressure 115 mm[Hg] Basim Hernandezel [employer] - [employer] Work Phone: [facility] 09-19-2024 10:53-0400 Body height 157.5 cm Arelis Dusz UN[employer] AID.[employer] Work Phone: [facility] 09-19-2024 10:53-0400 Body mass index (BMI) [Ratio] 28.35 kg/m2 Arelis Dusz [employer] Work Phone: [facility] 09-19-2024 10:53-0400 Body weight 70.31 kg Arelis Dusz [employer] A[employer] Work Phone: [facility] 09-19-2024 10:53-0400 Diastolic blood pressure 76 mm[Hg] Arelis Dusz UN[employer] AID.[employer] Work Phone: [facility] 09-19-2024 10:53-0400 Systolic blood pressure 124 mm[Hg] Arelis Dusz [employer] AID.[employer] Work Phone: [facility] 09-03-2024 15:49-0400 Body height 157.5 cm Baldo De La Cruz MD Work Phone: [facility] 09-03-2024 15:49-0400 Body mass index (BMI) [Ratio] 28.55 kg/m2 Baldo De La Cruz MD Work Phone: [facility] 09-03-2024 15:49-0400 Body weight 70.8 kg Baldo De La Cruz MD Work Phone: [facility] 09-03-2024 15:49-0400 Diastolic blood pressure 86 mm[Hg] Baldo De La Cruz MD Work Phone: [facility] 09-03-2024 15:49-0400 Heart rate 98 /min Baldo De La Cruz MD Work Phone: [facility] 09-03-2024 15:49-0400 Systolic blood pressure 124 mm[Hg] Baldo De La Cruz MD Work Phone: [facility] 09-03-2024 15:29-0400 Body height 157.5 cm Memo Canas MD Work Phone: [facility] 09-03-2024 15:29-0400 Body mass index (BMI) [Ratio] 28.53 kg/m2 Memo Canas MD Work Phone: [facility] 09-03-2024 15:29-0400 Body weight 70.76 kg Memo Canas MD Work Phone: [facility] 09-03-2024 15:29-0400 Diastolic blood pressure 86 mm[Hg] Memo Canas MD Work Phone: [facility] 09-03-2024 15:29-0400 Heart rate 98 /min Memo Canas MD Work Phone: [facility] 09-03-2024 15:29-0400 Systolic blood pressure 124 mm[Hg] Memo Canas MD Work Phone: [facility] 08-29-2024 10:47-0400 Diastolic blood pressure 83 mm[Hg] Amos Floyd MD Work Phone: [facility] 08-29-2024 10:47-0400 Heart rate 71 /min Amos Floyd MD Work Phone: [facility] 08-29-2024 10:47-0400 Systolic blood pressure 135 mm[Hg] Amos Floyd MD Work Phone: [facility] [facility] 08-29-2024 10:36-0400 Body mass index (BMI) [Ratio] 28.79 kg/m2 Amos Floyd MD Work Phone: [facility] 08-29-2024 10:36-0400 Body weight 71.4 kg Amos Floyd MD Work Phone: [facility] 08-29-2024 10:36-0400 Respiratory rate 20 /min Amos Floyd MD Work Phone: [facility] 08-14-2024 11:28-0400 Body mass index (BMI) [Ratio] 28.71 kg/m2 Amos Floyd MD Work Phone: [facility] 08-14-2024 11:28-0400 Body temperature 98.2 [degF] Amos Floyd MD Work Phone: [facility] 08-14-2024 11:28-0400 Body weight 71.2 kg Amos Floyd MD Work Phone: [facility] 08-14-2024 11:28-0400 Diastolic blood pressure 64 mm[Hg] Amos Floyd MD Work Phone: [facility] 08-14-2024 11:28-0400 Heart rate 88 /min Amos Floyd MD Work Phone: [facility] 08-14-2024 11:28-0400 Respiratory rate 18 /min Amos Floyd MD Work Phone: [facility] 08-14-2024 11:28-0400 Systolic blood pressure 98 mm[Hg] Amos Floyd MD Work Phone: [facility] 08-09-2024 15:03-0400 Body temperature 97.3 [degF] Dr. Amos Floyd MD Work Phone: [facility] 08-09-2024 15:03-0400 Diastolic blood pressure 73 mm[Hg] Dr. Amos Floyd MD Work Phone: [facility] 08-09-2024 15:03-0400 Heart rate 93 /min Dr. Amos Floyd MD Work Phone: [facility] 08-09-2024 15:03-0400 Respiratory rate 18 /min Dr. Amos Floyd MD Work Phone: [facility] 08-09-2024 15:03-0400 SaO2% (BldA) [Mass fraction] 96 % Dr. Amos Floyd MD Work Phone: [facility] 08-09-2024 15:03-0400 Systolic blood pressure 112 mm[Hg] Dr. Amos lFoyd MD Work Phone: 2(326)756-887135 [place] [address] 08-09-2024 05:31-0400 Body mass index (BMI) [Ratio] 29.5 kg/m2 Dr. Amos Floyd MD Work Phone: 7(589)530-379535 [place] [address] 08-09-2024 05:31-0400 Body weight 72.[address] Amos Floyd MD Work Phone: 9(249)563-492335 [place] [address] 08-08-2024 10:56-0400 Body height 157.[address] Amos Floyd MD Work Phone: 6(999)175-673135 [place] [address] 08-07-2024 21:30-0400 Diastolic blood pressure 88 mm[Hg] Dr. Amos Floyd MD Work Phone: 5(568)056-689335 [place] [address] 08-07-2024 21:30-0400 Heart rate 101 /min Dr. Amos Floyd MD Work Phone: 4(103)495-940235 [place] [address] 08-07-2024 21:30-0400 Respiratory rate 23 /min Dr. Amos Floyd MD Work Phone: 5(074)542-685835 [place] [address] 08-07-2024 21:30-0400 SaO2% (BldA) [Mass fraction] 98 % Dr. Amos Floyd MD Work Phone: 1(212)319-761735 [place] [address] 08-07-2024 21:30-0400 Systolic blood pressure 123 mm[Hg] Dr. Amos Floyd MD Work Phone: 5(264)785-957435 [place] [address] 08-07-2024 21:13-0400 Body temperature 98.4 [degF] Dr. Amos Floyd MD Work Phone: 9(486)707-075335 [place] [address] 08-07-2024 16:00-0400 Body mass index (BMI) [Ratio] 27.3 kg/m2 Dr. Amos Floyd MD Work Phone: 1(917)733-642235 [place] [address] 08-07-2024 16:00-0400 Body weight [address] Amos Floyd MD Work Phone: [facility] 08-07-2024 15:49-0400 Body height 157.[address] Amos Floyd MD Work Phone: [facility] 08-05-2024 07:22-0400 Body height 157.[address] Amos Floyd MD Work Phone: [facility] 08-05-2024 07:22-0400 Body weight 66.[address] Amos Floyd MD Work Phone: [facility] 08-01-2024 16:17-0400 Body mass index (BMI) [Ratio] 26.6 kg/m2 Dr. Amos Floyd MD Work Phone: [facility] 07-24-2024 10:50-0400 Body mass index (BMI) [Ratio] 26.53 kg/m2 Amos Floyd MD Work Phone: [facility] 07-24-2024 10:50-0400 Body weight 65.8 kg Amos Floyd MD Work Phone: [facility] 07-24-2024 10:50-0400 Diastolic blood pressure 82 mm[Hg] Amos Floyd MD Work Phone: [facility] 07-24-2024 10:50-0400 Heart rate 80 /min Amos Floyd MD Work Phone: [facility] 07-24-2024 10:50-0400 Respiratory rate 20 /min Amos Floyd MD Work Phone: [facility] 07-24-2024 10:50-0400 Systolic blood pressure 126 mm[Hg] Amos Floyd MD Work Phone: [facility] 07-23-2024 06:19-0400 Body mass index (BMI) [Ratio] 26.6 kg/m2 Dr. Amos Floyd MD Work Phone: [facility] 07-23-2024 06:19-0400 Body weight 66.[address] Amos Floyd MD Work Phone: 1(538)626-998297 [place] [address] 07-23-2024 06:19-0400 Diastolic blood pressure 93 mm[Hg] Dr. Amos Floyd MD Work Phone: 7(592)119-737197 [place] [address] 07-23-2024 06:19-0400 Heart rate 98 /min Dr. Amos Floyd MD Work Phone: 5(518)107-748535 [place] [address] 07-23-2024 06:19-0400 Respiratory rate 18 /min Dr. Amos Floyd MD Work Phone: 4(454)612-159535 [place] [address] 07-23-2024 06:19-0400 SaO2% (BldA) [Mass fraction] 100 % Dr. Amos Floyd MD Work Phone: 7(165)728-874135 [place] [address] 07-23-2024 06:19-0400 Systolic blood pressure 142 mm[Hg] Dr. Amos Floyd MD Work Phone: 7(411)282-240835 [place] [address] 04-29-2024 08:22-0400 Body mass index (BMI) [Ratio] 26.5 kg/m2 Dr. Amos Floyd MD Work Phone: 7(288)687-913835 [place] [address] 04-29-2024 08:22-0400 Body weight 65.[address] Amos Floyd MD Work Phone: 8(191)806-275835 [place] [address] 04-29-2024 08:22-0400 Diastolic blood pressure 91 mm[Hg] Dr. Amos Flody MD Work Phone: 8(531)218-627235 [place] [address] 04-29-2024 08:22-0400 Heart rate 97 /min Dr. Amos Floyd MD Work Phone: 3(061)854-137935 [place] [address] 04-29-2024 08:22-0400 Respiratory rate 18 /min Dr. Amos Floyd MD Work Phone: 1(416)043-529635 [place] [address] 04-29-2024 08:22-0400 SaO2% (BldA) [Mass fraction] 94 % Dr. Amos Floyd MD Work Phone: 6(153)634-113835 [place] [address] 04-29-2024 08:22-0400 Systolic blood pressure 123 mm[Hg] Dr. Amos Floyd MD Work Phone: [facility] 01-23-2024 10:10-0500 Body height 157.5 cm Amos Floyd MD Work Phone: [facility] 01-23-2024 10:10-0500 Body mass index (BMI) [Ratio] 26.01 kg/m2 Amos Floyd MD Work Phone: [facility] 01-23-2024 10:10-0500 Body temperature 97.5 [degF] Amos Floyd MD Work Phone: [facility] 01-23-2024 10:10-0500 Body weight 64.5 kg Amos Floyd MD Work Phone: [facility] 01-23-2024 10:10-0500 Diastolic blood pressure 76 mm[Hg] Amos Floyd MD Work Phone: [facility] 01-23-2024 10:10-0500 Heart rate 88 /min Amos Floyd MD Work Phone: [facility] 01-23-2024 10:10-0500 Respiratory rate 16 /min Amos Floyd MD Work Phone: [facility] 01-23-2024 10:10-0500 Systolic blood pressure 128 mm[Hg] Amos Floyd MD Work Phone: [facility] 09-19-2023 11:00-0400 Diastolic blood pressure 87 mm[Hg] Kole El PT Work Phone: [facility] 09-19-2023 11:00-0400 Heart rate 90 /min Kole El PT Work Phone: [facility] 09-19-2023 11:00-0400 Systolic blood pressure 131 mm[Hg] Kole El PT Work Phone: [facility] 09-12-2023 11:00-0400 Diastolic blood pressure 81 mm[Hg] Kole El PT Work Phone: [facility] 09-12-2023 11:00-0400 Heart rate 99 /min Kole Sienna PT Work Phone: [facility] 09-12-2023 11:00-0400 Systolic blood pressure 126 mm[Hg] Kole Sienna PT Work Phone: [facility] 09-08-2023 14:00-0400 Diastolic blood pressure 79 mm[Hg] Kole Sienna PT Work Phone: [facility] 09-08-2023 14:00-0400 Heart rate 98 /min Kole Sienna PT Work Phone: [facility] 09-08-2023 14:00-0400 Systolic blood pressure 115 mm[Hg] Kole Sienna PT Work Phone: [facility] 08-30-2023 14:00-0400 Diastolic blood pressure 79 mm[Hg] Kole Sienna PT Work Phone: [facility] 08-30-2023 14:00-0400 Heart rate 79 /min Kole Sienna PT Work Phone: [facility] 08-30-2023 14:00-0400 Systolic blood pressure 115 mm[Hg] Kole Sienna PT Work Phone: [facility] 08-21-2023 11:00-0400 Diastolic blood pressure 83 mm[Hg] Gisel Kashuba [employer] Work Phone: [facility] 08-21-2023 11:00-0400 Heart rate 81 /min Gisel Kashuba [employer] Work Phone: [facility] 08-21-2023 11:00-0400 Systolic blood pressure 118 mm[Hg] Gisel Kashuba [employer] Work Phone: [facility] 08-09-2023 09:00-0400 Diastolic blood pressure 87 mm[Hg] Kole Sienna PT Work Phone: [facility] 08-09-2023 09:00-0400 Heart rate 78 /min Kole Sienna PT Work Phone: [facility] 08-09-2023 09:00-0400 Systolic blood pressure 139 mm[Hg] Kole Sienna PT Work Phone: [facility] 08-02-2023 09:00-0400 Diastolic blood pressure 100 mm[Hg] Kole Sienna PT Work Phone: [facility] Comment on above: Right when entering clinic upon sitting. 08-02-2023 09:00-0400 Heart rate 77 /min Kole Sienna PT Work Phone: [facility] 08-02-2023 09:00-0400 Systolic blood pressure 155 mm[Hg] Kole Sienna PT Work Phone: [facility] Comment on above: Right when entering clinic upon sitting. 07-19-2023 09:00-0400 Diastolic blood pressure 108 mm[Hg] Kole Sienna PT Work Phone: [facility] Comment on above: Resting. 07-19-2023 09:00-0400 Heart rate 85 /min Kole Sienna PT Work Phone: [facility] 07-19-2023 09:00-0400 Systolic blood pressure 164 mm[Hg] Kole Sienna PT Work Phone: [facility] Comment on above: Resting. 07-05-2023 09:00-0400 Diastolic blood pressure 115 mm[Hg] Kole Sienna PT Work Phone: [facility] Comment on above: Measured 3 times automatically and then once manually with measurements around the same. 07-05-2023 09:00-0400 Heart rate 92 /min Kole Sienna PT Work Phone: [facility] 07-05-2023 09:00-0400 Systolic blood pressure 170 mm[Hg] Kole Sienna PT Work Phone: [facility] Comment on above: Measured 3 times automatically and then once manually with measurements around the same. 06-30-2023 09:39-0400 Body mass index (BMI) [Ratio] 25.61 kg/m2 Amos Floyd MD Work Phone: [facility] 06-30-2023 09:39-0400 Body weight 63.5 kg Amos Floyd MD Work Phone: [facility] 06-30-2023 09:39-0400 Diastolic blood pressure 100 mm[Hg] Amos Floyd MD Work Phone: [facility] 06-30-2023 09:39-0400 Heart rate 78 /min Amos Floyd MD Work Phone: [facility] 06-30-2023 09:39-0400 Respiratory rate 16 /min Amos Floyd MD Work Phone: [facility] 06-30-2023 09:39-0400 Systolic blood pressure 164 mm[Hg] Amos Floyd MD Work Phone: [facility] 06-28-2023 11:00-0400 Diastolic blood pressure 96 mm[Hg] Koleberny MoralesSienna PT Work Phone: [facility] Comment on above: At beginning of session. 06-28-2023 11:00-0400 Heart rate 85 /min Koleberny MoralesSienna PT Work Phone: [facility] 06-28-2023 11:00-0400 Systolic blood pressure 144 mm[Hg] Kole Sienna PT Work Phone: [facility] Comment on above: At beginning of session. 06-21-2023 13:00-0400 Diastolic blood pressure 99 mm[Hg] Koleberny MoralesSienna PT Work Phone: [facility] 06-21-2023 13:00-0400 Heart rate 86 /min Kole Sienna PT Work Phone: [facility] 06-21-2023 13:00-0400 Systolic blood pressure 150 mm[Hg] Kole Sienna PT Work Phone: [facility] 06-14-2023 11:00-0400 Diastolic blood pressure 106 mm[Hg] Kole Sienna PT Work Phone: [facility] Comment on above: Initial. 06-14-2023 11:00-0400 Heart rate 87 /min Kole Sienna PT Work Phone: [facility] 06-14-2023 11:00-0400 SaO2% (BldA) [Mass fraction] 98 % Kole El PT Work Phone: [facility] 06-14-2023 11:00-0400 Systolic blood pressure 157 mm[Hg] Kole El PT Work Phone: [facility] Comment on above: Initial. 05-31-2023 15:33-0400 Diastolic blood pressure 77 mm[Hg] Dr. Amos Floyd Work Phone: [facility] 05-31-2023 15:33-0400 Heart rate 81 /min Dr. Amos Floyd Work Phone: [facility] 05-31-2023 15:33-0400 Systolic blood pressure 134 mm[Hg] Dr. Amos Floyd Work Phone: [facility] 05-31-2023 14:22-0400 Body height 157.[address] Amos Floyd Work Phone: [facility] 05-31-2023 14:22-0400 Body mass index (BMI) [Ratio] 25.6 kg/m2 Dr. Amos Floyd Work Phone: [facility] 05-31-2023 14:22-0400 Body temperature 97 [degF] Dr. Amos Floyd Work Phone: [facility] 05-31-2023 14:22-0400 Body weight 63.[address] Amos Floyd Work Phone: [facility] 05-31-2023 14:22-0400 Respiratory rate 14 /min Dr. Amos Floyd Work Phone: [facility] 05-31-2023 14:22-0400 SaO2% (BldA) [Mass fraction] 99 % Dr. Amos Floyd Work Phone: [facility] 05-31-2023 11:12-0400 Body temperature 97.11 [degF] Rocio VivasFide [employer] Work Phone: [facility] 05-31-2023 11:12-0400 Body weight 64.41 kg Rocio VivasFide [employer] Work Phone: [facility] 05-31-2023 11:12-0400 Diastolic blood pressure 71 mm[Hg] Rocio VillafanaFide [employer] Work Phone: [facility] 05-31-2023 11:12-0400 Heart rate 112 /min Rocio VillafanaFide [employer] Work Phone: [facility] 05-31-2023 11:12-0400 Respiratory rate 14 /min Rocio VillafanaFide [employer] Work Phone: [facility] 05-31-2023 11:12-0400 SaO2% (BldA) [Mass fraction] 97 % Rocio Elizalde [employer] Work Phone: [facility] 05-31-2023 11:12-0400 Systolic blood pressure 102 mm[Hg] Rocio VivasFide [employer] Work Phone: [facility] 05-26-2023 11:11-0400 Body temperature 97.7 [degF] Elisa Mcdonough MD Work Phone: [facility] 05-26-2023 11:11-0400 Diastolic blood pressure 72 mm[Hg] Elisa Mcdonough MD Work Phone: [facility] 05-26-2023 11:11-0400 Heart rate 92 /min Elisa Mcdonough MD Work Phone: [facility] 05-26-2023 11:11-0400 Respiratory rate 17 /min Elisa Mcdonough MD Work Phone: [facility] 05-26-2023 11:11-0400 SaO2% (BldA) [Mass fraction] 94 % Elisa Mcdonough MD Work Phone: [facility] 05-26-2023 11:11-0400 Systolic blood pressure 106 mm[Hg] Elisa Mcdonough MD Work Phone: [facility] 05-24-2023 01:41-0400 Body height 157.5 cm Elisa Mcdonough MD Work Phone: [facility] 05-24-2023 01:41-0400 Body mass index (BMI) [Ratio] 25.85 kg/m2 Elisa Mcdonough MD Work Phone: [facility] 05-24-2023 01:41-0400 Body weight 64.1 kg Elisa Mcdonough MD Work Phone: [facility] 05-24-2023 00:20-0400 Body temperature 97.4 [degF] Dr. Amos Floyd Work Phone: [facility] 05-24-2023 00:20-0400 Diastolic blood pressure 91 mm[Hg] Dr. Amos Floyd Work Phone: [facility] 05-24-2023 00:20-0400 Heart rate 81 /min Dr. Amos Floyd Work Phone: [facility] 05-24-2023 00:20-0400 Respiratory rate 15 /min Dr. Amos Floyd Work Phone: [facility] 05-24-2023 00:20-0400 SaO2% (BldA) [Mass fraction] 96 % Dr. Amos Floyd Work Phone: [facility] 05-24-2023 00:20-0400 Systolic blood pressure 138 mm[Hg] Dr. Amos Floyd Work Phone: [facility] 05-23-2023 20:02-0400 Body height 157.[address] Amos Flody Work Phone: [facility] 05-23-2023 20:02-0400 Body mass index (BMI) [Ratio] 25.8 kg/m2 Dr. Amos Floyd Work Phone: [facility] 05-23-2023 20:02-0400 Body weight 64.[address] Amos Floyd Work Phone: [facility] 05-23-2023 12:18-0400 Body weight 63.5 kg Rocio Fide [employer] Work Phone: [facility] 05-23-2023 12:18-0400 Diastolic blood pressure 82 mm[Hg] Rocio Fide [employer] Work Phone: [facility] 05-23-2023 12:18-0400 Heart rate 72 /min Rocio Fide [employer] Work Phone: [facility] 05-23-2023 12:18-0400 Respiratory rate 14 /min Rocio Fide [employer] Work Phone: [facility] 05-23-2023 12:18-0400 SaO2% (BldA) [Mass fraction] 96 % Rocio Fide [employer] Work Phone: [facility] 05-23-2023 12:18-0400 Systolic blood pressure 106 mm[Hg] Rocio Fide [employer] Work Phone: [facility] 05-15-2023 22:30-0400 Body temperature 98.1 [degF] Dr. Amos Floyd Work Phone: [facility] 05-15-2023 22:30-0400 Diastolic blood pressure 86 mm[Hg] Dr. Amos Floyd Work Phone: [facility] 05-15-2023 22:30-0400 Heart rate 74 /min Dr. Amos Floyd Work Phone: [facility] 05-15-2023 22:30-0400 Respiratory rate 16 /min Dr. Amos Floyd Work Phone: [facility] 05-15-2023 22:30-0400 SaO2% (BldA) [Mass fraction] 98 % Dr. Amos Floyd Work Phone: 9(407)449-739635 [place] [address] 05-15-2023 22:30-0400 Systolic blood pressure 146 mm[Hg] Dr. Amos Floyd Work Phone: 3(224)792-112635 [place] [address] 05-15-2023 14:44-0400 Body height 157.[address] Amos Floyd Work Phone: 7(048)055-774235 [place] [address] 05-15-2023 14:44-0400 Body mass index (BMI) [Ratio] 26 kg/m2 Dr. Amos Floyd Work Phone: 1(253)916-163635 [place] [address] 05-15-2023 14:44-0400 Body weight 64.[address] Amos Floyd Work Phone: 5(864)477-501835 [place] [address] 03-03-2023 08:55-0500 Body height 157.[address] Amos Floyd Work Phone: 1(917)851-979435 [place] [address] 03-03-2023 08:55-0500 Body mass index (BMI) [Ratio] 26.3 kg/m2 Dr. Amos Floyd Work Phone: 6(399)098-552135 [place] [address] 03-03-2023 08:55-0500 Body weight 65.[address] Amos Floyd Work Phone: 2(334)938-916635 [place] [address] 03-03-2023 08:55-0500 Diastolic blood pressure 76 mm[Hg] Dr. Amos Floyd Work Phone: 7(968)978-850035 [place] [address] 03-03-2023 08:55-0500 Heart rate 86 /min Dr. Amos Floyd Work Phone: 1(841)142-286435 [place] [address] 03-03-2023 08:55-0500 Respiratory rate 18 /min Dr. Amos Floyd Work Phone: 4(819)555-807135 [place] [address] 03-03-2023 08:55-0500 SaO2% (BldA) [Mass fraction] 99 % Dr. Amos Floyd Work Phone: 9(900)590-226635 [place] [address] 03-03-2023 08:55-0500 Systolic blood pressure 115 mm[Hg] Dr. Amos Floyd Work Phone: [facility] 01-19-2023 12:57-0500 Body height 159 cm Amos Floyd MD Work Phone: [facility] 01-19-2023 12:57-0500 Body weight 64.41 kg Amos Floyd MD Work Phone: [facility] 01-19-2023 12:57-0500 Diastolic blood pressure 66 mm[Hg] Amos Floyd MD Work Phone: [facility] 01-19-2023 12:57-0500 Heart rate 88 /min Amos Floyd MD Work Phone: [facility] 01-19-2023 12:57-0500 Respiratory rate 16 /min Amos Floyd MD Work Phone: [facility] 01-19-2023 12:57-0500 Systolic blood pressure 110 mm[Hg] Amos Floyd MD Work Phone: [facility] 11-25-2022 13:20-0400 Body height 157.[address] Amos Floyd Work Phone: [facility] 11-25-2022 13:20-0400 Body temperature 97.4 [degF] Dr. Amos Floyd Work Phone: [facility] 11-25-2022 13:20-0400 Diastolic blood pressure 91 mm[Hg] Dr. Amos Floyd Work Phone: [facility] 11-25-2022 13:20-0400 Heart rate 75 /min Dr. Amos Floyd Work Phone: [facility] 11-25-2022 13:20-0400 Respiratory rate 16 /min Dr. Amos Floyd Work Phone: [facility] 11-25-2022 13:20-0400 SaO2% (BldA) [Mass fraction] 99 % Dr. Amos Floyd Work Phone: 5(014)210-181697 [place] [address] 11-25-2022 13:20-0400 Systolic blood pressure 131 mm[Hg] Dr. Amos Floyd Work Phone: 7(467)583-450835 [place] [address] 11-24-2022 13:49-0400 Body mass index (BMI) [Ratio] 26.2 kg/m2 Dr. Amos Floyd Work Phone: 8(653)523-727635 [place] [address] 11-24-2022 13:49-0400 Body temperature 97.6 [degF] Dr. Amos Floyd Work Phone: 7(347)640-767035 [place] [address] 11-24-2022 13:49-0400 Body weight 64.[address] Amos Floyd Work Phone: 9(650)895-033135 [place] [address] 11-24-2022 13:49-0400 Diastolic blood pressure 74 mm[Hg] Dr. Amos Floyd Work Phone: 0(178)048-459735 [place] [address] 11-24-2022 13:49-0400 Heart rate 70 /min Dr. Amos Floyd Work Phone: 6(729)784-915335 [place] [address] 11-24-2022 13:49-0400 Respiratory rate 16 /min Dr. Amos Floyd Work Phone: 5(571)837-260735 [place] [address] 11-24-2022 13:49-0400 SaO2% (BldA) [Mass fraction] 97 % Dr. Amos Floyd Work Phone: 9(471)229-315197 [place] [address] 11-24-2022 13:49-0400 Systolic blood pressure 112 mm[Hg] Dr. Amos Floyd Work Phone: [facility] 11-08-2022 10:48-0400 Body temperature 97.5 [degF] Jacinda Enriquez [employer] Work Phone: [facility] 11-08-2022 10:48-0400 Body weight 63.32 kg Jacinda Enriquez [employer] Work Phone: [facility] 11-08-2022 10:48-0400 Diastolic blood pressure 86 mm[Hg] Jacinda Enriquez [employer] Work Phone: [facility] 11-08-2022 10:48-0400 Heart rate 78 /min Jacinda Enriquez [employer] Work Phone: [facility] 11-08-2022 10:48-0400 Respiratory rate 20 /min Jacinda Enriquez [employer] Work Phone: [facility] 11-08-2022 10:48-0400 SaO2% (BldA) [Mass fraction] 98 % Jacinda Enriquez [employer] Work Phone: [facility] 11-08-2022 10:48-0400 Systolic blood pressure 128 mm[Hg] Jacinda Enriquez [employer] Work Phone: [facility] 08-04-2022 13:18-0400 Body height 157.[address] Amos Floyd Work Phone: [facility] 08-04-2022 13:18-0400 Body mass index (BMI) [Ratio] 26.2 kg/m2 Dr. Amos Floyd Work Phone: [facility] 08-04-2022 13:18-0400 Body weight 64.[address] Amos Floyd Work Phone: [facility] 08-04-2022 13:18-0400 Diastolic blood pressure 82 mm[Hg] Dr. Amos Floyd Work Phone: [facility] 08-04-2022 13:18-0400 Heart rate 79 /min Dr. Amos Floyd Work Phone: [facility] 08-04-2022 13:18-0400 Respiratory rate 18 /min Dr. Amos Floyd Work Phone: [facility] 08-04-2022 13:18-0400 SaO2% (BldA) [Mass fraction] 98 % Dr. Amos Floyd Work Phone: [facility] 08-04-2022 13:18-0400 Systolic blood pressure 122 mm[Hg] Dr. Amos Floyd Work Phone: [facility] [facility] 07-20-2022 10:17-0400 Diastolic blood pressure 66 mm[Hg] Rocio Older [employer] Work Phone: [facility] 07-20-2022 10:17-0400 Systolic blood pressure 102 mm[Hg] Rocio Older [employer] Work Phone: [facility] 07-20-2022 10:01-0400 Body weight 63.05 kg Rocio Older [employer] Work Phone: [facility] 07-20-2022 10:01-0400 Heart rate 96 /min Rocio Older [employer] Work Phone: [facility] 07-20-2022 10:01-0400 Respiratory rate 16 /min Rocio Older [employer] Work Phone: [facility] 05-27-2022 12:58-0400 Body height 157.[address] Amos Floyd Work Phone: [facility] 05-27-2022 12:58-0400 Body temperature 96.4 [degF] Dr. Amos Floyd Work Phone: [facility] 05-27-2022 12:58-0400 Diastolic blood pressure 93 mm[Hg] Dr. Amos Floyd Work Phone: [facility] 05-27-2022 12:58-0400 Heart rate 78 /min Dr. Amos Floyd Work Phone: [facility] 05-27-2022 12:58-0400 Respiratory rate 16 /min Dr. Amos Floyd Work Phone: [facility] 05-27-2022 12:58-0400 SaO2% (BldA) [Mass fraction] 99 % Dr. Amos Floyd Work Phone: 3(427)912-922197 [place] [address] 05-27-2022 12:58-0400 Systolic blood pressure 152 mm[Hg] Dr. Amos Floyd Work Phone: [facility] 01-25-2022 11:33-0500 Body height 157.[address] Amos Floyd Work Phone: [facility] 01-25-2022 11:33-0500 Body mass index (BMI) [Ratio] 25.9 kg/m2 Dr. Amos Floyd Work Phone: 8(851)404-795497 [place] [address] 01-25-2022 11:33-0500 Body weight 64.[address] Amos Floyd Work Phone: 1(949)764-549697 [place] [address] 01-25-2022 11:33-0500 Diastolic blood pressure 91 mm[Hg] Dr. Amos Floyd Work Phone: 0(428)158-212797 [place] [address] 01-25-2022 11:33-0500 Heart rate 92 /min Dr. Amos Floyd Work Phone: 7(863)454-334897 [place] [address] 01-25-2022 11:33-0500 Respiratory rate 18 /min Dr. Amos Floyd Work Phone: 2(886)468-292935 [place] [address] 01-25-2022 11:33-0500 SaO2% (BldA) [Mass fraction] 99 % Dr. Amos Floyd Work Phone: [facility] 01-25-2022 11:33-0500 Systolic blood pressure 128 mm[Hg] Dr. Amos Floyd Work Phone: [facility] 12-20-2021 09:16-0400 Diastolic blood pressure 100 mm[Hg] Rocio Older [employer] Work Phone: [facility] 12-20-2021 09:16-0400 Systolic blood pressure 154 mm[Hg] Rocio Older [employer] Work Phone: [facility] 12-20-2021 08:50-0400 Body height 156 cm Rocio Older [employer] A[employer] Work Phone: [facility] 12-20-2021 08:50-0400 Body weight 64.41 kg Rocio Older [employer] A[employer] Work Phone: [facility] 12-20-2021 08:50-0400 Heart rate 96 /min Rocio Older [employer] Work Phone: [facility] 12-20-2021 08:50-0400 Respiratory rate 16 /min Rocio Older [employer] A[employer] Work Phone: [facility] 12-13-2021 09:14-0400 Body height 157.[address] Amos Floyd Work Phone: [facility] Work Phone: 12-13-2021 09:13-0400 Body mass index (BMI) [Ratio] 25.7 kg/m2 Dr. Amos Floyd Work Phone: [facility] 12-13-2021 09:13-0400 Body weight 63.[address] Amos Floyd Work Phone: [facility] 12-13-2021 09:13-0400 Diastolic blood pressure 95 mm[Hg] Dr. Amos Floyd Work Phone: [facility] 12-13-2021 09:13-0400 Heart rate 80 /min Dr. Amos Floyd Work Phone: [facility] 12-13-2021 09:13-0400 Respiratory rate 18 /min Dr. Amos Floyd Work Phone: [facility] 12-13-2021 09:13-0400 SaO2% (BldA) [Mass fraction] 99 % Dr. Amos Floyd Work Phone: [facility] 12-13-2021 09:13-0400 Systolic blood pressure 146 mm[Hg] Dr. Amos Floyd Work Phone: [facility] 12-06-2021 14:34-0400 Body temperature 97.5 [degF] Amos Floyd MD Work Phone: [facility] 12-06-2021 14:34-0400 Body weight 62.6 kg Amos Floyd MD Work Phone: [facility] 12-06-2021 14:34-0400 Diastolic blood pressure 86 mm[Hg] Amos Floyd MD Work Phone: [facility] 12-06-2021 14:34-0400 Heart rate 84 /min Amos Floyd MD Work Phone: [facility] 12-06-2021 14:34-0400 Respiratory rate 20 /min Amos Floyd MD Work Phone: [facility] 12-06-2021 14:34-0400 Systolic blood pressure 126 mm[Hg] Amos Floyd MD Work Phone: [facility] 12-02-2021 13:34-0400 Body mass index (BMI) [Ratio] 25.9 kg/m2 Dr. Amos Floyd Work Phone: [facility] 12-02-2021 13:34-0400 Body temperature 94.6 [degF] Dr. Amos Floyd Work Phone: [facility] 12-02-2021 13:34-0400 Body weight 64.[address] Amos Floyd Work Phone: [facility] 12-02-2021 13:34-0400 Diastolic blood pressure 104 mm[Hg] Dr. Amos Floyd Work Phone: [facility] 12-02-2021 13:34-0400 Heart rate 79 /min Dr. Amos Floyd Work Phone: [facility] 12-02-2021 13:34-0400 Respiratory rate 16 /min Dr. Amos Floyd Work Phone: [facility] 12-02-2021 13:34-0400 SaO2% (BldA) [Mass fraction] 95 % Dr. Amos Floyd Work Phone: [facility] 12-02-2021 13:34-0400 Systolic blood pressure 158 mm[Hg] Dr. Amos Floyd Work Phone: [facility] 11-26-2021 13:15-0400 Body height 157.[address] Amos Floyd Work Phone: [facility] Work Phone: 11-26-2021 13:15-0400 Body temperature 97.8 [degF] Dr. Amos Floyd Work Phone: 1(427)780-868797 [place] [address] 11-26-2021 13:15-0400 Diastolic blood pressure 88 mm[Hg] Dr. Amos Floyd Work Phone: 2(322)584-592897 [place] [address] 11-26-2021 13:15-0400 Heart rate 79 /min Dr. Amos Floyd Work Phone: 6(400)123-749635 [place] [address] 11-26-2021 13:15-0400 Respiratory rate 16 /min Dr. Amos Floyd Work Phone: 8(479)238-040735 [place] [address] 11-26-2021 13:15-0400 SaO2% (BldA) [Mass fraction] 98 % Dr. Amos Floyd Work Phone: 8(606)037-962397 [place] [address] 11-26-2021 13:15-0400 Systolic blood pressure 144 mm[Hg] Dr. Amos Floyd Work Phone: 6(910)782-000135 [place] [address] 11-18-2021 08:00-0400 Body temperature 98.2 [degF] Dr. Amos Floyd Work Phone: [facility] Work Phone: 11-18-2021 08:00-0400 Diastolic blood pressure 77 mm[Hg] Dr. Amos Floyd Work Phone: [facility] Work Phone: 11-18-2021 08:00-0400 Heart rate 72 /min Dr. Amos Floyd Work Phone: [facility] Work Phone: 11-18-2021 08:00-0400 Respiratory rate 18 /min Dr. Amos Floyd Work Phone: [facility] Work Phone: 11-18-2021 08:00-0400 SaO2% (BldA) [Mass fraction] 98 % Dr. Amos Floyd Work Phone: [facility] Work Phone: 11-18-2021 08:00-0400 Systolic blood pressure 112 mm[Hg] Dr. Amos Floyd Work Phone: [facility] Work Phone: 11-18-2021 05:55-0400 Body weight 63.[address] Amos Floyd Work Phone: [facility] Work Phone: 11-17-2021 10:20-0400 Body height 157.[address] Amos Floyd Work Phone: [facility] Work Phone: 11-17-2021 05:24-0400 Body weight 63.2 kg [facility] Work Phone: 11-17-2021 04:00-0400 Heart rate 83 /min [facility] Work Phone: 11-17-2021 01:25-0400 Body height 157.48 cm [facility] Work Phone: 11-17-2021 01:25-0400 Body mass index (BMI) [Ratio] 25.4 kg/m2 [facility] Work Phone: 11-17-2021 00:51-0400 Body temperature 98.1 [degF] [facility] Work Phone: 11-17-2021 00:51-0400 Diastolic blood pressure 63 mm[Hg] [facility] Work Phone: 11-17-2021 00:51-0400 Respiratory rate 25 /min [facility] Work Phone: 11-17-2021 00:51-0400 SaO2% (BldA) [Mass fraction] 96 % [facility] Work Phone: 11-17-2021 00:51-0400 Systolic blood pressure 84 mm[Hg] [facility] Work Phone: 10-20-2021 22:49-0400 Body mass index (BMI) [Ratio] 23 kg/m2 [facility] Work Phone: 10-13-2021 13:48-0400 Body temperature 98.71 [degF] Irene Praisler-Wood UN[employer] AID[employer]IST Work Phone: [facility] 10-13-2021 13:48-0400 Body weight 62.51 kg Irene Praisler-Wood UNIT AID[employer]IST Work Phone: [facility] 10-13-2021 13:48-0400 Diastolic blood pressure 84 mm[Hg] Irene Praisler-Wood UNIT AID[employer]IST Work Phone: [facility] 10-13-2021 13:48-0400 Heart rate 111 /min Irene Praisler-Wood UNIT AID[employer]IST Work Phone: [facility] 10-13-2021 13:48-0400 Respiratory rate 18 /min Irene Praisler-Wood UNIT AID[employer]IST Work Phone: [facility] 10-13-2021 13:48-0400 SaO2% (BldA) [Mass fraction] 97 % Irene Praisler-Wood UNIT AID[employer]IST Work Phone: [facility] 10-13-2021 13:48-0400 Systolic blood pressure 124 mm[Hg] Irene Praisler-Wood UNIT AID[employer]IST Work Phone: [facility] 09-19-2021 02:13-0400 Body mass index (BMI) [Ratio] 23 kg/m2 Dr. Amos Floyd Work Phone: [facility] Work Phone: 08-20-2021 06:53-0400 Body mass index (BMI) [Ratio] 23 kg/m2 Dr. Amos Floyd Work Phone: [facility] Work Phone: 07-20-2021 20:34-0400 Body mass index (BMI) [Ratio] 23 kg/m2 Dr. Amos Floyd Work Phone: [facility] Work Phone: 07-20-2021 09:20-0400 Body temperature 97.11 [degF] Amos Floyd MD Work Phone: [facility] 07-20-2021 09:20-0400 Body weight 62.6 kg Amos Floyd MD Work Phone: [facility] 07-20-2021 09:20-0400 Diastolic blood pressure 68 mm[Hg] Amos Floyd MD Work Phone: [facility] 07-20-2021 09:20-0400 Heart rate 72 /min Amos Flody MD Work Phone: [facility] 07-20-2021 09:20-0400 Respiratory rate 16 /min Amos Floyd MD Work Phone: [facility] 07-20-2021 09:20-0400 Systolic blood pressure 114 mm[Hg] Amos Floyd MD Work Phone: [facility] 07-12-2021 11:22-0400 Body height 157.[address] Amos Floyd Work Phone: [facility] Work Phone: 07-12-2021 11:22-0400 Body mass index (BMI) [Ratio] 25.6 kg/m2 Dr. Amos Floyd Work Phone: [facility] Work Phone: 07-12-2021 11:22-0400 Body weight 63.[address] Amos Floyd Work Phone: [facility] Work Phone: 07-12-2021 11:22-0400 Diastolic blood pressure 88 mm[Hg] Dr. Amos Floyd Work Phone: [facility] Work Phone: 07-12-2021 11:22-0400 Heart rate 74 /min Dr. Amos Floyd Work Phone: [facility] Work Phone: 07-12-2021 11:22-0400 Respiratory rate 18 /min Dr. Amos Floyd Work Phone: [facility] Work Phone: 07-12-2021 11:22-0400 SaO2% (BldA) [Mass fraction] 98 % Dr. Amos Floyd Work Phone: [facility] Work Phone: 07-12-2021 11:22-0400 Systolic blood pressure 129 mm[Hg] Dr. Amos Floyd Work Phone: [facility] Work Phone: 07-12-2021 11:22-0400 Body height 157.[address] Amos Floyd Work Phone: [facility] Work Phone: 07-12-2021 11:22-0400 Body mass index (BMI) [Ratio] 25.6 kg/m2 Dr. Amos Floyd Work Phone: [facility] Work Phone: 07-12-2021 11:22-0400 Body weight 63.[address] Amos Floyd Work Phone: [facility] Work Phone: 07-12-2021 11:22-0400 Diastolic blood pressure 88 mm[Hg] Dr. Amos Floyd Work Phone: [facility] Work Phone: 07-12-2021 11:22-0400 Heart rate 74 /min Dr. Amos Floyd Work Phone: [facility] Work Phone: 07-12-2021 11:22-0400 Respiratory rate 18 /min Dr. Amos Floyd Work Phone: [facility] Work Phone: 07-12-2021 11:22-0400 SaO2% (BldA) [Mass fraction] 98 % Dr. Amos Floyd Work Phone: [facility] Work Phone: 07-12-2021 11:22-0400 Systolic blood pressure 129 mm[Hg] Dr. Amos Floyd Work Phone: [facility] Work Phone: 06-20-2021 03:20-0400 Body mass index (BMI) [Ratio] 23 kg/m2 Dr. Amos Floyd Work Phone: [facility] Work Phone: 05-27-2021 12:45-0400 Body height 157.[address] Amos Floyd Work Phone: [facility] Work Phone: 05-27-2021 12:45-0400 Body mass index (BMI) [Ratio] 25.6 kg/m2 Dr. Amos Floyd Work Phone: [facility] Work Phone: 05-27-2021 12:45-0400 Body temperature 97.1 [degF] Dr. Amos Floyd Work Phone: [facility] Work Phone: 05-27-2021 12:45-0400 Body weight 63.[address] Amos Floyd Work Phone: [facility] Work Phone: 05-27-2021 12:45-0400 Diastolic blood pressure 92 mm[Hg] Dr. Amos Floyd Work Phone: [facility] Work Phone: 05-27-2021 12:45-0400 Heart rate 89 /min Dr. Amos Floyd Work Phone: [facility] Work Phone: 05-27-2021 12:45-0400 Respiratory rate 12 /min Dr. Amos Floyd Work Phone: [facility] Work Phone: 05-27-2021 12:45-0400 SaO2% (BldA) [Mass fraction] 99 % Dr. Amos Floyd Work Phone: [facility] Work Phone: 05-27-2021 12:45-0400 Systolic blood pressure 134 mm[Hg] Dr. Amos Floyd Work Phone: [facility] Work Phone: 05-21-2021 01:38-0400 Body mass index (BMI) [Ratio] 23 kg/m2 Dr. Amos Floyd Work Phone: [facility] Work Phone: 04-20-2021 09:35-0500 Body mass index (BMI) [Ratio] 23 kg/m2 Dr. Amos Floyd Work Phone: [facility] Work Phone: 04-20-2021 08:35-0500 Body mass index (BMI) [Ratio] 23 kg/m2 Dr. Amos Floyd Work Phone: [facility] Work Phone: 2021 10:08-0500 Body height 157.[address] Amos Floyd Work Phone: [facility] Work Phone: 2021 10:08-0500 Body mass index (BMI) [Ratio] 26.5 kg/m2 Dr. Amos Floyd Work Phone: [facility] Work Phone: 2021 10:08-0500 Body weight 65.[address] Amos Floyd Work Phone: [facility] Work Phone: 2021 10:08-0500 Diastolic blood pressure 92 mm[Hg] Dr. Amos Floyd Work Phone: [facility] Work Phone: 2021 10:08-0500 Heart rate 80 /min Dr. Amos Floyd Work Phone: [facility] Work Phone: 2021 10:08-0500 Respiratory rate 18 /min Dr. Amos Floyd Work Phone: [facility] Work Phone: 2021 10:08-0500 SaO2% (BldA) [Mass fraction] 99 % Dr. Amos Floyd Work Phone: [facility] Work Phone: 2021 10:08-0500 Systolic blood pressure 134 mm[Hg] Dr. Amos Floyd Work Phone: [facility] Work Phone: 03-22-2021 21:52-0500 Body mass index (BMI) [Ratio] 23 kg/m2 Dr. Amos Floyd Work Phone: [facility] Work Phone: 02-21-2021 03:05-0500 Body mass index (BMI) [Ratio] 23 kg/m2 Dr. Amos Floyd Work Phone: [facility] Work Phone: 01-20-2021 01:16-0500 Body mass index (BMI) [Ratio] 23 kg/m2 Dr. Amos Floyd Work Phone: [facility] Work Phone: Encounters Encounter Date Encounter Type Care Provider Facility Start: 12-13-2024 Encounter for genera l adult medical examination without abnormal findings Jennifer Tarango [facility] Start: 12-10-[address] Jennifer Tarango DO -Ultrasound [facility] Work Phone: Start: 12-10-2024 End: 12-10-2024 ambulatory Jennifer Tarango Facility:[facility] Start: 12-04-2024 Non-patient / Non-visit [facility] Start: 12-04-2024 ambulatory MEMO EVAN MELVA Work Phone: -[facility] Start: 12-04-2024 ambulatory Jennifer Lee Facility: [facility] Start: 12-03-2024 End: 12-03-2024 Patient encounter procedure Basim FENTONNP -Laboratory Work Phone: Start: 12-03-2024 End: 12-03-2024 ambulatory Basim Joel Facility:[facility] Start: 11-28-2024 End: 11-28-2024 ambulatory BASIM JOEL [facility] Start: 11-28-2024 End: 11-28-2024 Office outpatient visit 25 minutes Basim Joel UN[employer] AID - [employer] Work Phone: [facility] [place] Comment on above: Chronic systolic hea rt failure (HCC) (Primary Dx); S/P TAVR (transcatheter aortic valve replacement); Deep vein thrombosis (DVT) of proximal vein of both lower extremities, unspecified chronicity (HCC); Stage 3b chronic kidney disease (CMS/HCC); Plumas's disease (HCC) Start: 11-28-2024 End: 11-28-2024 Subsequent hospital visit by physician Dylon Gupta UNIT AID - [employer] Work Phone: [facility] Comment on above: Severe aortic stenos is Start: 11-28-2024 End: 11-28-2024 ambulatory DYLON GUPTA [facility] Start: 11-25-2024 End: 11-25-[address] Jennifer Tarango DO -Laboratory Work Phone: Start: 11-25-2024 End: 11-25-2024 ambulatory Jennifer Tarango Facility:[facility] Start: 11-14-2024 End: 11-14-[address] Jordan Marte MD -[facility] Work Phone: Start: 11-14-2024 End: 11-14-[address] Amos Floyd MD Work Phone: -[facility] Start: 10-31-2024 End: 10-31-2024 ambulatory BASIM [facility] Start: 10-31-2024 End: 10-31-2024 Office outpatient visit 25 minutes Basim Joel [employer] AID - [employer] Work Phone: [facility] [employer] Comment on above: Severe aortic stenos is (Primary Dx); Stage 3b chronic kidney disease (HCC); Plumas's disease (HCC); Chronic systolic heart failure (HCC); Deep vein thrombosis (DVT) of proximal vein of both lower extremities, unspecified chronicity (HCC) Start: 10-31-2024 End: 10-31-2024 ambulatory BASIM [facility] Start: 10-29-2024 End: 10-29-2024 Office outpatient visit 25 minutes Amos Floyd MD Work Phone: [facility] [place] Comment on above: S/p TAVR (transcathe ter aortic valve replacement), bioprosthetic (Primary Dx); Pure hypercholesterolemia; Encounter for immunization; Stage 3b chronic kidney disease (HCC); Hypertensive kidney disease with stage 3b chronic kidney disease (HCC); Nonrheumatic aortic valve stenosis Start: 10-29-2024 End: 10-29-2024 ambulatory AMOS FLOYD Facility:[facility] Start: 10-24-2024 End: 10-24-2024 Orders Only Dylon Gupta UNIT AID - [employer] Work Phone: [facility] [employer] Comment on above: Severe aortic stenos is (Primary Dx) Start: 10-23-2024 End: 10-24-2024 Evaluation and management of inpatient Memo Canas MD Work Phone: [facility] CTV ICU T1 Comment on above: Severe aortic stenos is (Primary Dx); Aortic valve stenosis, etiology of cardiac valve disease unspecified; Syncope and collapse Start: 10-22-2024 End: 10-22-2024 ambulatory Dylon Gupta [employer] A[employer] - [employer] Work Phone: [facility] Comment on above: Severe aortic stenos is (Primary Dx) Start: 10-16-2024 End: 10-16-2024 Office outpatient visit 25 minutes Dylon Gupta UNIT AID - [employer] Work Phone: [facility] Comment on above: Severe aortic stenos is (Primary Dx); Stage 3 chronic kidney disease, unspecified whether stage 3a or 3b CKD (HCC); Acute deep vein thrombosis (DVT) of right lower extremity, unspecified vein (HCC); Acute systolic heart failure (HCC); Moris's disease (HCC) Start: 10-16-2024 End: 10-16-2024 ambulatory [facility] Start: 10-15-2024 End: 10-15-[address] Amos Floyd MD Work Phone: -Laboratory Start: 10-15-2024 End: 10-15-[address] Amos Floyd MD Work Phone: -Laboratory Work Phone: Start: 10-15-2024 End: 10-15-2024 ambulatory JEFF RAYGOZA Facility:[facility] Start: 10-10-2024 End: 10-23-2024 Telephone encounter Memo Canas MD Work Phone: [facility] Comment on above: Procedure Start: 10-03-2024 End: 10-03-[address] Amos Floyd MD Work Phone: -Laboratory Start: 10-03-2024 End: 10-03-2024 Patient encounter procedure Basim BUTLER -Laboratory Work Phone: Start: 10-03-2024 End: 10-03-2024 ambulatory Basim Joel Facility:[facility] Start: 10-02-2024 End: 10-02-2024 Telephone encounter Basim Joel UN[employer] AID - [employer] Work Phone: [facility] [place] Start: 09-26-2024 End: 09-26-2024 ambulatory ARELIS SMITH Facility:[facility] Start: 09-26-2024 End: 09-26-2024 Telephone encounter Basim Joel [employer] AID - [employer] Work Phone: [facility] [place] Start: 09-26-2024 ambulatory ARELIS SMITH Facility:[facility] Start: 09-19-2024 End: 09-19-2024 Office outpatient visit 25 minutes Basim Joel UNIT AID - [employer] Work Phone: [facility] Comment on above: Aortic valve stenosi s, etiology of cardiac valve disease unspecified (Primary Dx); Deep vein thrombosis (DVT) of proximal vein of both lower extremities, unspecified chronicity (HCC); Acute systolic heart failure (HCC); Plumas's disease (HCC); Renal insufficiency; Recurrent UTI Start: 09-19-2024 End: 09-19-2024 ambulatory BASIM WISAM [facility] Start: 09-19-2024 End: 09-23-2024 Telephone encounter Arelis Smith [employer] Work Phone: Urology Comment on above: Consult Start: 09-19-2024 End: 09-19-2024 Subsequent hospital visit by physician Dylon Gupta UNIT AID - [employer] Work Phone: [facility] [address] Comment on above: Nonrheumatic aortic valve stenosis Start: 09-19-2024 End: 09-19-2024 ambulatory [facility] Start: 09-19-2024 End: 09-19-2024 Office consultation new/estab patient 60 min Arelis Smith [employer] Work Phone: Urology Comment on above: Recurrent UTI (Prima ry Dx); History of kidney stones Start: 09-19-2024 End: 09-19-2024 ambulatory ARELIS SMITH Facility:[facility] Start: 09-12-2024 End: 09-19-2024 Telephone encounter Amos Floyd MD Work Phone: [facility] [place] Comment on above: Patient Question Start: 09-10-2024 End: 09-10-[address] Amos Floyd MD Work Phone: -Laboratory Start: 09-10-2024 End: 09-10-[address] Amos Floyd MD Work Phone: -Laboratory Work Phone: Start: 09-10-2024 End: 09-10-2024 ambulatory RYA1 RAYGOZA Facility:[facility] Start: 09-03-2024 End: 09-03-2024 Office consultation new/estab patient 80 min Baldo De La Cruz MD Work Phone: [facility] Comment on above: Severe aortic stenos is (Primary Dx) Start: 09-03-2024 End: 09-03-2024 Office outpatient visit 40 minutes Memo Canas MD Work Phone: [facility] [employer] Comment on above: Nonrheumatic aortic valve stenosis (Primary Dx) Start: 09-03-2024 End: 09-03-2024 Orders Only Dylon Gupta APRN - AIRWAYS CONTROL SPECIALIST Work Phone: [facility] [employer] [facility] Comment on above: Nonrheumatic aortic valve stenosis (Primary Dx) Start: 08-31-2024 End: 09-02-2024 Follow-up encounter Amos Floyd MD Work Phone: [facility] [place] Start: 08-29-2024 End: 08-29-2024 Office outpatient visit 25 minutes Amos Floyd MD Work Phone: [facility] [place] Comment on above: Acute deep vein thro mbosis (DVT) of proximal vein of both lower extremities (HCC) (Primary Dx); Adrenal insufficiency (HCC); Primary hypertension; History of UTI; Nonrheumatic aortic valve stenosis; Thyroid nodule greater than or equal to 1 cm in diameter incidentally noted on imaging study, right side. Start: 08-29-2024 End: 08-29-2024 ambulatory AMOS FLOYD Facility:[facility] Start: 08-22-2024 End: 08-22-2024 Patient Outreach Annemarie Read RN Isotope Technician Management Comment on above: Weekly phone contact (Recurring) for Transitional Care Management Start: 08-20-2024 End: 08-20-2024 Follow-up encounter Amos Floyd MD Work Phone: [facility] [place] Start: 08-19-2024 End: 08-19-2024 Telephone encounter Amos Floyd MD Work Phone: [facility] [place] Comment on above: Patient Update Start: 08-16-2024 End: 08-16-2024 ambulatory Amos Floyd MD Work Phone: [facility] [place] Start: 08-16-2024 End: 08-16-2024 Follow-up encounter Amos Floyd MD Work Phone: [facility] [place] Comment on above: Follow up Start: 08-15-2024 End: 08-15-2024 Patient Outreach Annemarie Read RN Isotope Technician Management Comment on above: Initial phone contac t for Transitional Care Management Start: 08-14-2024 End: 08-14-2024 Office outpatient visit 25 minutes Amos Floyd MD Work Phone: [facility] [place] Comment on above: Acute deep vein thro mbosis (DVT) of proximal vein of both lower extremities (HCC) (Primary Dx); Other specified hypotension; Adrenal insufficiency (HCC); Nonrheumatic aortic valve stenosis; Acute cystitis without hematuria Start: 08-14-2024 End: 08-14-2024 ambulatory SELF Facility:[facility] Start: 08-09-2024 Non-patient / Non-visit Dr. Jairo ramos DO -[facility] Work Phone: Start: 08-08-2024 Non-patient / Non-visit Dr. Deidre Toro MD -[facility] Work Phone: Start: 08-07-2024 ambulatory Nixon Sidhu ty:[facility] Start: 08-07-2024 End: 08-09-2024 Evaluation and management of inpatient Dr. Nixon de Gelacio DO -Intensive Care Unit Work Phone: Start: 08-05-2024 End: 08-05-2024 Admission to same day surgery center Dr. Jordan Marte MD -[facility] Clerk/Special Procedures Work Phone: Start: 08-05-2024 End: 08-05-[address] Amos Floyd MD Work Phone: [facility] Work Phone: Start: 07-24-2024 End: 07-24-2024 Office outpatient visit 25 minutes Amos Floyd MD Work Phone: [facility] [place] Comment on above: ASHD (arteriosclerot ic heart disease) (Primary Dx); Primary hypertension; Nonrheumatic aortic valve stenosis; Subconjunctival hemorrhage of left eye; Chronic nonallergic rhinitis; Stage 3b chronic kidney disease (HCC); Adrenal insufficiency (HCC); Encounter for immunization Start: 07-24-2024 End: 07-24-2024 ambulatory AMOS FLOYD Facility:[facility] Start: 07-23-2024 End: 07-23-2024 Patient encounter procedure Heaven VASQUEZ -[facility] Work Phone: Start: 07-23-2024 End: 07-23-[address] Amos Floyd MD Work Phone: [facility] Work Phone: Start: 07-21-2024 ambulatory Basim DISLA Facility:[facility] Start: 07-10-2024 End: 07-10-2024 ambulatory AMOS FLOYD Facility:[facility] Start: 07-05-2024 End: 07-05-2024 ambulatory AMOS FLOYD Facility:[facility] Start: 07-03-2024 ambulatory Amos Floyd Facili ty:[facility] Start: 07-03-2024 Non-patient / Non-visit Dr. Salena ZELAYA -[facility] Start: 07-03-2024 End: 07-03-2024 Patient encounter procedure Tucker DISLA -Cardiovascular Services Work Phone: Start: 07-03-2024 End: 07-03-[address] Amos Floyd MD Work Phone: [facility] Work Phone: Start: 06-21-2024 End: 06-21-2024 Discharged Recurring Basim Velasquez PA -Laboratory Work Phone: Start: 06-21-2024 Registered Recurring Basim Velasquez PA -Laboratory Work Phone: Start: 06-21-2024 End: 06-21-[address] Amos Floyd MD Work Phone: [facility] Work Phone: Start: 06-19-2024 End: 06-19-2024 Orders Only Brissa Wright UNIT AID.AIRWAYS CONTROL SPECIALIST Work Phone: [facility] Comment on above: Thyroid nodule (Prim christ Dx) Allied Health Visit (Medication Adherence Outreach ) Start: 05-24-2024 Non-patient / Non-visit Dr. Salena ZELAYA -[facility] Start: 05-24-2024 End: 05-24-2024 Patient encounter procedure Tucker Reyes PA -Cardiovascular Services Work Phone: Start: 05-24-2024 End: 06-19-2024 Discharged Recurring Basim Velasquez PA -Laboratory Work Phone: Start: 05-24-2024 Registered Recurring Basim Velasquez PA -Laboratory Work Phone: Start: 05-24-2024 End: 06-19-[address] Amos Floyd MD Work Phone: [facility] Work Phone: Start: 05-24-2024 End: 05-24-2024 ambulatory Tucker Reyes Facility:[facility] Start: 05-14-2024 End: 05-14-2024 ambulatory Amos Floyd MD Work Phone: [facility] Comment on above: Allied Health Visit (Medication Adherence Outreach/) Start: 04-29-2024 End: 04-29-2024 Patient encounter procedure Tucker DISLA -[facility] Work Phone: Start: 04-29-2024 End: 04-29-2024 ambulatory Amos Floyd Facility[facility] Start: 04-26-2024 End: 04-26-2024 Discharged Recurring Basim DISLA -Laboratory Work Phone: Start: 04-26-2024 End: 04-26-[address] Amos Floyd MD Work Phone: [facility] Work Phone: Start: 04-05-2024 End: 04-05-2024 ambulatory Del Saravia [facility] Start: 04-05-2024 End: 04-05-2024 Patient encounter [facility] Comment on above: Population Health Na vigation Outreach ([employer] High Risk - 1st attempt/) Start: 04-03-2024 End: 04-03-[address] Jennifer Tarango DO -Laboratory Work Phone: Start: 04-03-2024 End: 04-03-2024 ambulatory Jennifer Tarango Facility:[facility] Start: 03-21-2024 End: 03-22-2024 ambulatory Basim DISLA Facility:[facility] Start: 03-21-2024 End: 03-22-2024 Discharged Recurring Basim Velasquez PA -Laboratory Work Phone: Start: 02-22-2024 End: 02-22-2024 Telephone encounter Amos Floyd MD Work Phone: [facility] [place] Comment on above: Results Start: 02-01-2024 End: 02-01-2024 Subsequent hospital visit by physician Genna [facility] (I-Stat) Work Phone: Cat Scan Comment on above: Nodule of lower lobe of right lung [R91.1] Start: 02-01-2024 End: 02-01-2024 ambulatory AMOS FLOYD Facility:[facility] Start: 01-23-2024 End: 01-23-2024 ambulatory AMOS FLOYD Facility:[facility] Start: 01-23-2024 End: 01-23-2024 Patient encounter procedure Amos Floyd MD Work Phone: [facility] [place] Comment on above: Medicare annual well ness [...] Amos Floyd MD Work Phone: [facility] [place] Comment on above: Results Start: 01-15-2024 End: 01-15-2024 Orders Only Amos Floyd MD Work Phone: [facility] [place] Comment on above: Nodule of lower lobe of right lung needing follor up CT (Primary Dx) Start: 01-11-2024 End: 01-11-2024 Nursing evaluation of patient and report Mi Nurse Work Phone: [facility] [place] Comment on above: Age-related osteopor osis with current pathological fracture with routine healing (Primary Dx) Start: 01-11-2024 End: 01-11-2024 ambulatory AMOS FLOYD Facility:[facility] Start: 01-04-2024 End: 01-20-2024 ambulatory Basim DISLA Facility:[facility] Start: 01-01-2024 End: 01-01-2024 ambulatory AMOS FLOYD Facility:[facility] Start: 01-01-2024 End: 01-01-2024 Subsequent hospital visit by physician Dao [facility] Work Phone: Radiology Comment on above: Abnormal finding of diagnostic imaging [R93.89] Start: 12-29-2023 End: 12-29-2023 E-mail encounter from caregiver Javier Edmond MENDOZA Work Phone: [facility] Start: 12-29-2023 End: 12-29-2023 Follow-up encounter Javier Edmond MENDOZA Work Phone: [facility] Comment on above: Actionable Findings Visit Follow-Up Actionable Findings Follow Up Start: 12-29-2023 End: 12-29-2023 Patient encounter procedure Javier Edmond MENDOZA Work Phone: [facility] Start: 12-29-2023 End: 12-29-2023 ambulatory AMOS FLOYD Facility:[facility] Start: 12-26-2023 End: 12-28-2023 Telephone encounter Amos Floyd MD Work Phone: [facility] [place] Comment on above: Results Start: 12-21-2023 End: 12-21-2023 ambulatory Amos Floyd Facility:[facility] Start: 12-20-2023 End: 12-20-2023 Patient encounter procedure Nathaly Ren APRN.[employer]IR[employer] CONTR[employer] SPECIALIST Work Phone: [facility] Comment on above: Radiology Review Start: 12-20-2023 End: 12-20-2023 Telephone encounter Nathaly Ren APRN.AIRWAYS CONTROL SPECIALIST Work Phone: [facility] Start: 12-14-2023 End: 12-20-2023 ambulatory NATHALY REN Facility:[facility] Start: 12-06-2023 End: 12-07-2023 Refill Amos Floyd MD Work Phone: [facility] [place] Comment on above: Refill Request Start: 12-05-2023 End: 12-11-2023 Telephone encounter Amos Floyd MD Work Phone: [facility] [place] Comment on above: Insurance Authorizat ion Start: 11-28-2023 End: 12-01-2023 Refill Amos Floyd MD Work Phone: [facility] [place] Start: 11-14-2023 End: 11-14-2023 ambulatory Echo Miller RN Work Phone: Isotope Technician Management Start: 11-11-2023 End: 11-11-2023 ambulatory AMOS FLOYD Facility:[facility] Start: 09-19-2023 End: 09-19-2023 ambulatory Kole El PT Work Phone: [facility] Comment on above: Physical decondition ing (Primary Dx); Gait abnormality; Weakness Start: 09-12-2023 End: 09-12-2023 ambulatory Kole Sienna PT Work Phone: [facility] Comment on above: Physical decondition ing (Primary Dx); Gait abnormality; Weakness Start: 09-08-2023 End: 09-08-2023 ambulatory Koleberny El PT Work Phone: [facility] Comment on above: Physical decondition ing (Primary Dx); Gait abnormality; Weakness Start: 09-06-2023 End: 01-15-2024 ambulatory Amos Floyd MD Work Phone: [facility] [place] Start: 09-06-2023 End: 01-15-2024 Follow-up encounter Amos Floyd MD Work Phone: [facility] [place] Comment on above: Patient followup Start: 08-30-2023 End: 08-30-2023 ambulatory Kole El PT Work Phone: [facility] Comment on above: Physical decondition ing (Primary Dx); Gait abnormality; Weakness Start: 08-21-2023 End: 08-21-2023 ambulatory Gisel Kimuna CONSULTANT [employer]LECT[employer] Work Phone: [facility] Comment on above: Physical decondition ing (Primary Dx); Gait abnormality; Weakness Start: 08-17-2023 E-mail encounter fro m caregiver Nathaly Ren APRN.[employer]IR[employer] CONTR[employer] SPECIALIST Work Phone: [facility] Start: 08-17-2023 Patient encounter procedure Nathaly Ren APRN.[employer]IR[employer] CONTROL SPECIALIST Work Phone: [facility] Comment on above: Actionable Finding Start: 08-11-2023 End: 08-11-2023 Patient encounter procedure Amos Floyd MD Work Phone: [facility] [place] Comment on above: Primary hypertension (Primary Dx); Hypercalcemia; Adrenal hypofunction (HCC); Nonrheumatic aortic valve stenosis Start: 08-09-2023 End: 08-09-2023 ambulatory Kole Sienna PT Work Phone: [facility] Comment on above: Physical decondition ing (Primary Dx); Gait abnormality; Weakness Start: 08-08-2023 Telephone encounter Amos maria MD Work Phone: [facility] [place] Comment on above: Hypertension Start: 08-02-2023 End: 08-02-2023 ambulatory Kole Sienna PT Work Phone: [facility] Comment on above: Physical decondition ing (Primary Dx); Gait abnormality; Weakness Start: 07-19-2023 End: 01-15-2024 ambulatory Kole Sienna PT Work Phone: [facility] Comment on above: Physical decondition ing (Primary Dx); Gait abnormality; Weakness medication midodrine Start: 07-05-2023 End: 07-05-2023 ambulatory Kole Sienna PT Work Phone: [facility] Comment on above: Physical decondition ing (Primary Dx); Gait abnormality; Weakness Start: 06-30-2023 End: 06-30-2023 Patient encounter procedure Amos Floyd MD Work Phone: [facility] [place] Comment on above: Hypercalcemia (Prima ry Dx); Age-related osteoporosis with current pathological fracture with routine healing; Hypokalemia; Adrenal hypofunction (HCC); NSTEMI (non-ST elevated myocardial infarction) (HCC); ASHD (arteriosclerotic heart disease); Nonrheumatic aortic valve stenosis Start: 06-28-2023 End: 06-28-2023 ambulatory Kole Sienna PT Work Phone: [facility] Comment on above: Physical decondition ing (Primary Dx); Gait abnormality; Weakness Start: 06-21-2023 End: 06-21-2023 ambulatory Kole El PT Work Phone: [facility] Comment on above: Physical decondition ing (Primary Dx); Gait abnormality; Weakness Start: 06-19-2023 Telephone encounter Delfino yost UNIT AID.AIRWAYS CONTROL SPECIALIST Work Phone: [facility] Card[facility] [place] Comment on above: Appointment Start: 06-19-2023 End: 06-20-[address] Amos Floyd Work Phone: [facility] Work Phone: Start: 06-19-2023 End: 06-20-[address] Amos Floyd Work Phone: [facility]-Laboratory Work Phone: Start: 06-14-2023 End: 06-14-2023 ambulatory Kole El PT Work Phone: [facility] Comment on above: Physical decondition ing (Primary Dx); Gait abnormality; Muscle weakness Start: 06-09-2023 ambulatory Rocio alexander APRN.AIR[employer] CONTR[employer] SPECIALIST Work Phone: [facility] Start: 06-09-2023 Evaluation and management of inpatient Rocio Elizalde APRN.AIR[employer] CONTROL SPECIALIST Work Phone: [facility] [place] Comment on above: is inpatient a t [facility] Start: 06-08-2023 ambulatory Amos salazar MD Work Phone: [facility] [place] Comment on above: Chest Pain Start: 06-07-2023 Telephone encounter Rocio gomez APRN.AIR[employer] CONTR[employer] SPECIALIST Work Phone: [facility] [place] Comment on above: Blood Pressure Start: 05-31-2023 End: 05-31-[address] Amos Floyd Work Phone: [facility] Work Phone: Comment on above: Physical decondition ing (Primary Dx); Muscle weakness; Gait abnormality Start: 05-31-2023 Telephone encounter Amos maria MD Work Phone: [facility] [place] Comment on above: Clinical Update Start: 05-31-2023 End: 05-31-[address] Amos Floyd Work Phone: [facility]-Medical Out Work Phone: Start: 05-31-[address] Jenni Floyd Work Phone: [facility]-Laboratory Work Phone: Start: 05-31-2023 End: 05-31-2023 Patient encounter procedure Rocio Elizalde APRN.AIRWAYS CONTROL SPECIALIST Work Phone: [facility] [place] Comment on above: Other specified hypo tension (Primary Dx); Moris's disease (HCC); Hypercalcemia Start: 05-31-2023 End: 05-31-2023 ambulatory Kole El PT Work Phone: [facility] Comment on above: Gait abnormality (Pr imary Dx); Physical deconditioning; Weakness Start: 05-24-2023 End: 05-26-2023 ambulatory Rocio Elizalde APRN.AIRWAYS CONTROL SPECIALIST Work Phone: [facility] Start: 05-24-2023 Evaluation and management of inpatient Rocio Elizalde APRN.AIR[employer] CONTROL SPECIALIST Work Phone: [facility] [place] Comment on above: is inpatient a dana IRA KRYSTEN Start: 05-24-2023 End: 05-26-2023 Evaluation and management of inpatient [facility] Start: 05-23-2023 End: 05-24-2023 Emergency department patient visit Dr. Amos Floyd Work Phone: [facility]-Emergency Department Work Phone: Start: 05-23-2023 Telephone encounter Hung Freed MD Work Phone: Family [facility] Comment on above: Results Start: 05-23-2023 End: 05-23-2023 Patient encounter procedure Rocio Jorge Fide UNIT AID.AIR[employer] CONTROL SPECIALIST Work Phone: [facility] [place] Comment on above: Hypercalcemia (Prima ry Dx); Fatigue, unspecified type; Urinary frequency; Myalgias; Confusion; Weakness Start: 05-22-2023 Telephone encounter Amos maria MD Work Phone: [facility] [place] Comment on above: Patient Question Start: 05-19-2023 ambulatory mAos salazar MD Work Phone: [facility] Start: 05-19-2023 Follow-up encounter Amos maria MD Work Phone: [facility] [place] Comment on above: Zometa medication/ E R visit followup care. Start: 05-15-2023 End: 05-15-2023 Emergency department patient visit Dr. Amos Floyd Work Phone: [facility]-Emergency Department Work Phone: Start: 05-15-2023 Telephone encounter Amos maria MD Work Phone: Internal [facility] Comment on above: Patient Update Start: 05-09-2023 End: 05-09-2023 ambulatory José Shi PT, DPT [facility] Comment on above: Gait abnormality (Pr imary Dx); Hip pain, unspecified laterality; Closed displaced fracture of fifth metatarsal bone of right foot with delayed healing, subsequent encounter Start: 05-02-2023 End: 05-02-2023 ambulatory José Shi PT, DPT [facility] Comment on above: Gait abnormality (Pr imary Dx); Hip pain, unspecified laterality; Closed displaced fracture of fifth metatarsal bone of right foot with delayed healing, subsequent encounter Start: 2023 End: 04-20-[address] Amos Floyd Work Phone: [facility] Work Phone: Start: 2023 End: 04-20-[address] Amos Floyd Work Phone: [facility]-Laboratory Work Phone: Start: [address] Jenni Floyd Work Phone: [facility]-Laboratory Work Phone: Start: 04-11-2023 End: 04-11-2023 ambulatory Kole El PT Work Phone: [facility] Comment on above: Gait abnormality (Pr imary Dx); Hip pain, unspecified laterality; Closed displaced fracture of fifth metatarsal bone of right foot with delayed healing, subsequent encounter Start: 04-10-2023 Non-patient / Non-visit Dr. Atiya Floyd Work Phone: [facility] Start: 04-10-2023 End: 04-10-[address] Amos Floyd Work Phone: [facility] Work Phone: Start: 04-10-2023 End: 04-10-[address] Amos Floyd Work Phone: [facility]-Cardiovascula r Services Work Phone: Start: 04-04-2023 End: 04-04-[address] Amos Floyd Work Phone: [facility] Work Phone: Start: 04-04-2023 End: 04-04-[address] Amos Floyd Work Phone: [facility]-Laboratory, Phy Office 3rd Flr Start: 04-03-2023 End: 04-03-2023 ambulatory Kole El PT Work Phone: [facility] Comment on above: Gait abnormality (Pr imary Dx); Hip pain, unspecified laterality; Closed displaced fracture of fifth metatarsal bone of right foot with delayed healing, subsequent encounter Start: 03-28-[address] [facility] Start: 03-28-2023 End: 03-28-2023 ambulatory Kole El PT Work Phone: [facility] Comment on above: Gait abnormality (Pr imary Dx); Hip pain, unspecified laterality; Closed displaced fracture of fifth metatarsal bone of right foot with delayed healing, subsequent encounter Start: 03-23-2023 ambulatory Omar bernardo Work Phone: Podiatry Comment on above: xrays Start: 03-23-2023 E-mail encounter fro m caregiver Omar Cruz Work Phone: [facility] Start: 03-03-2023 End: 03-03-[address] Amos Floyd Work Phone: [facility] Work Phone: Start: 02-24-2023 End: 02-24-[address] Amos Floyd Work Phone: [facility] Work Phone: Start: 02-24-2023 End: 02-24-[address] [facility] Start: 02-08-2023 End: 02-19-[address] Amos Floyd Work Phone: [facility] Work Phone: Start: 02-08-2023 End: 02-19-[address] [facility] Start: 01-19-2023 End: 01-19-2023 Patient encounter procedure Amos Floyd MD Work Phone: [facility] [place] Comment on above: Medicare annual well ness visit, subsequent (Primary Dx); Primary hypertension; Pure hypercholesterolemia; Atopic neurodermatitis; Adrenal hypofunction (HCC); Disorder of autonomic nervous system; Stage 3b chronic kidney disease (HCC); Age-related osteoporosis with current pathological fracture with routine healing; Need for COVID-19 vaccine; Hypercalcemia Start: 01-18-2023 End: 01-18-2023 Subsequent hospital visit by physician Xr [facility] Work Phone: Radiology Comment on above: Closed displaced fra cture of fifth metatarsal bone of right foot, initial encounter [J17.351A] Start: 12-23-2022 End: 01-19-[address] Amos Floyd Work Phone: [facility] Work Phone: Start: 12-23-2022 End: 01-19-[address] Amos Floyd Work Phone: [facility]-Laboratory Work Phone: Start: 12-19-2022 End: 12-19-2022 Patient encounter procedure Omar Eduardolakeisha Work Phone: Podiatry Comment on above: Closed displaced fra cture of fifth metatarsal bone of right foot, initial encounter (Primary Dx) Start: 12-19-2022 End: 12-19-2022 Subsequent hospital visit by physician Xr [facility] Work Phone: Radiology Comment on above: Closed displaced fra cture of fifth metatarsal bone of right foot, initial encounter [S92.351A] Start: 12-08-2022 End: 12-08-[address] Amos Floyd Work Phone: [facility] Work Phone: Start: 12-08-2022 End: 12-08-[address] Amos Floyd Work Phone: [facility]-Laboratory Work Phone: Start: 12-02-2022 Refill Amos salazar MD Work Phone: [phone] [place] [address] Comment on above: Refill Request Start: 12-01-2022 End: 12-01-2022 Subsequent hospital visit by physician Dao [facility] Work Phone: Radiology Comment on above: Closed displaced fra cture of fifth metatarsal bone of right foot, initial encounter [S92.351A] Start: 11-25-2022 End: 11-25-[address] Amos Floyd Work Phone: [facility]-Medical Out Work Phone: Start: 11-24-2022 End: 11-24-[address] Amos Floyd Work Phone: [facility] Work Phone: Start: 11-08-2022 End: 11-08-2022 Subsequent hospital visit by physician Dao [facility] [place] Work Phone: Radiology Comment on above: Foot pain, right [M7 9.671] Start: 11-08-2022 End: 11-08-2022 Patient encounter procedure Jacinda Enriquez APRN.[employer] CONTR[employer] SPECIALIST Work Phone: [facility] Comment on above: Foot pain, right (Pr imary Dx); Closed fracture of right foot, initial encounter Start: 11-01-2022 End: 11-01-2022 ambulatory Kole El PT Work Phone: [facility] Comment on above: Hip pain, unspecifie d laterality [M25.559] (Primary Dx) Start: 10-26-2022 End: 10-26-[address] Amos Floyd Work Phone: [facility] Work Phone: Start: 10-26-2022 End: 10-26-[address] Amos Floyd Work Phone: [facility] Work Phone: Start: 10-26-2022 End: 10-26-2022 Subsequent hospital visit by physician Dao [facility] Work Phone: Radiology Comment on above: Hip pain, unspecifie d laterality [M25.559] Start: 10-26-2022 End: 10-26-2022 Patient encounter procedure Amos Floyd MD Work Phone: [facility] [place] Comment on above: Hip pain, unspecifie d laterality (Primary Dx); Stage 3b chronic kidney disease (HCC); Deep vein thrombosis (DVT) of lower extremity, unspecified chronicity, unspecified laterality, unspecified vein (HCC); Need for influenza vaccination Start: 10-11-2022 End: 10-11-[address] Amos Floyd Work Phone: [facility] Work Phone: Start: 10-11-2022 End: 10-11-[address] [facility]: Start: 09-19-2022 Refill Nevin Brooks Work Phone: Dermatology Comment on above: Refill Request Start: 09-12-2022 End: 09-19-[address] Amos Floyd Work Phone: [facility] Work Phone: Start: 09-12-2022 End: 09-19-[address] Amos Floyd [facility]: Start: 08-11-2022 End: 08-11-[address] Amos Floyd Work Phone: [facility] Work Phone: Start: 08-11-2022 End: 08-11-[address] Am[facility]: Start: 08-04-2022 End: 08-04-[address] 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 Amos Floyd [facility]: Start: 07-22-2022 Telephone encounter Ryan rick MD Work Phone: Dermatology Comment on above: Patient Question Start: 07-20-2022 End: 07-20-2022 Patient encounter procedure Rocio Johnson APRN.[employer] SPECIALIST Work Phone: [facility] [place] Comment on above: Primary hypertension (Primary Dx); Pure hypercholesterolemia; Stage 3b chronic kidney disease (HCC); ASHD (arteriosclerotic heart disease); Osteopenia, unspecified location Start: 07-08-2022 End: 07-20-[address] Amos Floyd Work Phone: [facility] Work Phone: Start: 07-08-2022 End: 07-20-[address] Amos Floyd [facility] Start: 06-07-2022 End: 06-07-[address] Amos Floyd Work Phone: [facility] Work Phone: Start: 06-07-2022 End: 06-07-[address] Amos Floyd [facility] Start: 05-31-2022 End: 05-31-[address] Amos Floyd Work Phone: [facility] Work Phone: Start: 05-31-2022 End: 05-31-[address] Amos Floyd Work Phone: [facility]Laboratory Start: 05-27-2022 End: 05-27-[address] Amos Floyd Work Phone: [facility]-Medical Out Start: 05-25-2022 End: 05-25-2022 Patient encounter procedure Ryan Gale MD Work Phone: Dermatology Comment on above: Atopic neurodermatit is (Primary Dx) Start: 05-09-2022 End: 05-20-[address] Amos Floyd Work Phone: [facility] Work Phone: Start: 05-09-2022 End: 05-20-[address] Amos Floyd [facility] Start: 03-25-2022 Non-patient / Non-visit Dr. Atiya Floyd Work Phone: [facility] Start: 03-25-2022 End: 03-25-[address] Amos Floyd Work Phone: [facility] Work Phone: Start: 03-25-2022 End: 03-25-[address] Amos Floyd [facility] Start: 03-15-2022 Telephone encounter Ryan rick MD Work Phone: Dermatology Comment on above: Insurance Authorizat ion ([employer]) Start: 03-14-2022 Refill Ryan Gaitan Work Phone: Dermatology Comment on above: Refill Request Start: 03-10-2022 End: 03-10-[address] Amos Floyd Work Phone: [facility] Work Phone: Start: 03-10-2022 End: 03-10-[address] Amos Floyd [facility] Start: 02-23-2022 End: 02-23-2022 Patient encounter procedure Ryan Gale MD Work Phone: Dermatology Comment on above: Atopic neurodermatit is (Primary Dx) Start: 02-15-2022 End: 02-15-[address] Amos Floyd Work Phone: [facility] Work Phone: Start: 02-15-2022 End: 02-15-[address] Amos Floyd Work Phone: [facility] Start: 01-27-[address] Jenni Floyd Work Phone: [facility] Start: 01-25-2022 End: 01-25-[address] Amos Floyd Work Phone: [facility] Work Phone: Start: 01-25-2022 End: 01-25-[address] Amos Floyd Work Phone: [facility] Start: 12-28-2021 End: 01-19-[address] mAos Floyd Work Phone: [facility] Work Phone: Start: 12-28-2021 End: 01-19-[address] Amos Floyd [facility] Start: 12-20-2021 End: 12-20-2021 Patient encounter procedure Rocio Older UNIT AID.[employer] CONTR[employer] SPECIALIST Work Phone: [facility] [place] Comment on above: Medicare annual well ness visit, subsequent (Primary Dx); Hypertension, unspecified type; Pure hypercholesterolemia; Encounter for immunization Start: 12-13-2021 End: 12-13-[address] Amos Floyd Work Phone: [facility] Start: 12-08-2021 Documentation procedure Mammog akash Coordinator [facility] Start: 12-08-2021 Letter encounter Mammography Coordinator [facility] Department Start: 12-08-2021 End: 12-08-2021 Subsequent hospital visit by physician Screen Mammo [facility] Comment on above: Encounter for screen ing mammogram for malignant neoplasm of breast [Z12.31] Start: 12-06-2021 End: 12-06-2021 Patient encounter procedure Amos Floyd MD Work Phone: [facility] [place] Comment on above: Hypotension due to h ypovolemia (Primary Dx); Elevated troponin; Acute kidney injury (HCC); Stage 3b chronic kidney disease (HCC); Hypercalcemia; Anticoagulated on Coumadin; Breast pain, left; Encounter for screening mammogram for malignant neoplasm of breast Start: 12-02-2021 Refill Amos salazar MD Work Phone: [address] [place] [address] Comment on above: Refill Request Start: 12-02-2021 End: 12-02-[address] Amos Floyd Work Phone: [facility] Start: 11-26-2021 End: 11-26-[address] Amos Floyd Work Phone: [facility]-Medical Out Start: 11-25-2021 End: 11-25-2021 Patient encounter procedure Ryan Gale MD Work Phone: Dermatology Comment on above: Atopic neurodermatit is (Primary Dx) Start: 11-24-2021 End: 11-24-[address] Amos Floyd Work Phone: [facility] Work Phone: Start: 11-24-2021 End: 11-24-[address] Amos Floyd Work Phone: [facility]-Laboratory, Phy Office 3rd Flr Start: 11-18-2021 Non-patient / Non-visit Dr. Atiya Floyd Work Phone: [facility] Inpatient Physicians Start: 11-17-2021 Non-patient / Non-visit Dr. Atiya Floyd Work Phone: [facility]-Pulmonary Medicine [facility] Start: 11-17-2021 Non-patient / Non-visit Dr. Atiya Floyd Work Phone: [facility] Start: 11-17-2021 Non-patient / Non-visit Dr. Atiya Floyd Work Phone: [facility] Inpatient Physicians Start: 11-17-2021 End: 11-18-2021 Evaluation and management of inpatient [facility]-Intensive Care Unit Start: 11-02-2021 End: 11-02-[address] Amos Floyd Work Phone: [facility] Work Phone: Start: 11-02-2021 End: 11-02-[address] Amos Floyd Work Phone: [facility]-Laboratory Start: 11-02-2021 Registered Recurring [facility]-Laboratory Start: 10-28-2021 ambulatory Luciana montes RN Work Phone: Isotope Technician Management Comment on above: 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 (enrollment/HAH) Start: 10-14-2021 Telephone encounter Jefferson guzman APRN.[employer] SPECIALIST Work Phone: [facility] Comment on above: Results Start: 10-13-2021 End: 10-13-2021 Patient encounter procedure Irene Mendenhall APRN.[employer] CONTR[employer] SPECIALIST Work Phone: [facility] Comment on above: Suspected COVID-19 v irus infection (Primary Dx) Start: 09-28-2021 End: 09-28-[address] Amos Floyd Work Phone: [facility] Work Phone: Start: 09-28-2021 End: 09-28-[address] Amos Floyd Work Phone: [facility]-Laboratory Start: 08-30-2021 End: 09-19-[address] Amos Floyd Work Phone: [facility]-Laboratory Start: 08-25-2021 End: 08-25-2021 Patient encounter procedure Nevin Lee PA-C Work Phone: Dermatology Comment on above: Atopic neurodermatit is (Primary Dx) Start: 07-26-2021 End: 07-26-[address] Amos Floyd Work Phone: [facility]-Laboratory Start: 07-20-2021 End: 07-20-2021 Patient encounter procedure Amos Floyd MD Work Phone: [facility] [place] Comment on above: Adrenal hypofunction (HCC) (Primary Dx); Primary hypertension; ASHD (arteriosclerotic heart disease); Hip pain; Need for COVID-19 vaccine Start: 07-12-2021 End: 07-12-[address] Amos Floyd Work Phone: [facility] Start: 06-25-2021 End: 06-25-[address] Amos Floyd Work Phone: [facility]-Laboratory Start: 05-27-2021 End: 05-27-[address] Amos Floyd Work Phone: [facility]-Medical Out Start: 05-27-2021 End: 05-27-[address] Amos Floyd Work Phone: [facility]-Laboratory Start: 05-27-[address] Jenni Floyd Work Phone: [facility]-Laboratory Start: 04-29-2021 End: 05-20-[address] [facility] Start: 04-28-2021 Non-patient / Non-visit Dr. Atiya Floyd Work Phone: [facility] Start: 04-28-2021 End: 04-28-[address] Amos Floyd Work Phone: [facility]-Cardiovascula r Services Start: 2021 End: [address] Amos Floyd Work Phone: [facility] Start: 03-31-2021 End: 03-31-[address] Amos Floyd Work Phone: [facility]-Laboratory Start: 03-02-2021 End: 03-22-[address] Am[facility] Start: 02-01-2021 End: 02-20-[address] Amos Floyd Work Phone: [facility]-Laboratory Start: 04-28-2020 Evaluation and management of inpatient ARUNBerny CALERO Facility: Start: 01-17-2018 Ambulatory [facility] Facility :[facility] Start: 01-17-2017 End: 01-17-2017 Ambulatory [facility] Facility:[facility] Start: 04-09-2009 End: 05-14-2009 Patient encounter status Kole El PT Work Phone: [facility] Procedures Date Procedure Procedure Detail Performing Clinician Start: 12-10-2024 Us retroperitoneal r eal time w/image complete MEMO CANAS Work Phone: Start: 12-03-2024 Serum inorganic phos phate measurement MEMO CANAS Work Phone: Start: 11-28-2024 Echo tthrc r-t 2d w/wom-mode compl spec&colr d Dylon Gupta UNIT AID - [employer] SPECIALIST Work Phone: Start: 11-28-2024 Adult depression scr eening assessment Basim Joel UNIT AID - [employer] SPECIALIST Work Phone: Start: 10-31-2024 Basic metabolic pane l calcium total Basim Joel UNIT AID - [employer] SPECIALIST Work Phone: Start: 10-29-2024 Ecg routine ecg w/le ast 12 lds i&r only [facility] Provider Start: 10-24-2024 TTE w or wo fol wcon,Doppler Dylon Gupta UNIT AID - [employer] SPECIALIST Work Phone: Start: 10-24-2024 Ecg routine ecg w/le ast 12 lds trcg only w/o i&r Dylon Gupta UNIT AID - [employer] SPECIALIST Work Phone: Start: 10-24-2024 Basic metabolic pane l calcium total Dylon Gupta UNIT AID - [employer] SPECIALIST Work Phone: Start: 10-23-2024 Echo transthorc r-t 2d w/wo m-mode rec f-up/lmtd Memo Canas MD Work Phone: Start: 10-23-2024 Ecg routine ecg w/le ast 12 lds trcg only w/o i&r Dylon Gupta UNIT AID - [employer] SPECIALIST Work Phone: Start: 10-23-2024 Basic metabolic pane l calcium total Dylon Gupta UNIT AID - [employer] SPECIALIST Work Phone: Start: 10-23-2024 OXYGEN THERAPY Dylon soria UNIT AID - [employer] SPECIALIST Work Phone: Start: 10-23-2024 Cardiac catheterizat ion study Memo Canas MD Work Phone: Start: 10-23-2024 POCT ACT Memo krishna MD Work Phone: Start: 10-23-2024 Blood typing serologic abo Memo Canas MD Work Phone: Start: 10-23-2024 End: 10-23-2024 TRANSCATHETER AORTIC VALVE REPLACEMENT (TAVR) - OR William Self DO Work Phone: Start: 10-23-2024 Radiologic exam ches t single view Dylon Gupta UNIT AID - [employer] SPECIALIST Work Phone: Start: 10-23-2024 Antibody screen BALDO JARRETT Comment on above: Performed By: #### L [id number] ####Estimator And Drafter Supervisor: JAQUELIN RICO ([id number])[facility] ([facility])[address] [place] [address] Start: 10-23-2024 Blood typing serologic abo Dylon Gupta UNIT AID - [employer] SPECIALIST Work Phone: Start: 09-29-2024 Ecg routine ecg w/le ast 12 lds w/i&r Memo Canas MD Work Phone: Start: 09-19-2024 Ecg routine ecg w/le ast 12 lds trcg only w/o i&r Memo Canas MD Work Phone: Start: 09-19-2024 BLADDER SCAN Arelis gonzalez UNIT AID.[employer] CONTR[employer] SPECIALIST Work Phone: Start: 09-19-2024 Ct angiography chest w/contrast/noncontrast Dylon Gupta UNIT AID - [facility] Work Phone: Start: 09-19-2024 Culture bacterial quanttative colony count urine Arelis Smith UNIT AID.[employer] CONTR[employer] SPECIALIST Work Phone: Start: 09-19-2024 Urnls dip stick/tabl et rgnt auto w/o microscopy Arelis Smith UNIT AID.[employer] SPECIALIST Work Phone: Start: 08-29-2024 Urnls dip stick/tabl et rgnt auto w/o microscopy Amos Floyd MD Work Phone: Start: 08-14-2024 Urnls dip stick/tabl et rgnt auto w/o microscopy Amos Floyd MD Work Phone: Start: 08-09-[address] Amos Floyd MD Work Phone: Start: 08-07-2024 CT of abdomen and pe lvis without contrast Dr. Amos Floyd MD Work Phone: Start: 08-07-2024 Urnls dip stick/tabl et reagent auto microscopy Dr. Amos Floyd MD Work Phone: Start: 08-07-[address] Amos Floyd MD Work Phone: Start: 08-07-2024 Total iron binding c apacity measurement Dr. Amos Floyd MD Work Phone: Start: 08-07-[address] Jenni Floyd MD Work Phone: Start: 08-07-[address] Jenni Floyd MD Work Phone: Start: 08-05-[address] Amos Floyd MD Work Phone: Start: 07-24-2024 PFIZER-BIONTECH COVI D-19 VACCINE AGE 12+ YR ([facility]) Amos Floyd MD Work Phone: Start: 07-23-2024 X-ray of chest, PA a nd lateral views Dr. Amos Floyd MD Work Phone: Start: 04-03-2024 Assay of phosphorus inorganic Dr. Amos Floyd MD Work Phone: Start: 04-03-2024 Measurement of renal function Dr. Amos Floyd MD Work Phone: Comment on above: GFR Calc Start: 01-23-2024 PFIZER-BIONTECH COVI D-19 VACCINE AGE 12+ YR ([facility]) Amos Floyd MD Work Phone: Start: 01-23-2024 Adult depression scr eening assessment Amos Floyd MD Work Phone: Start: 01-01-2024 Radiologic exam ches t 2 views Javier Abbott PA-C Work Phone: Start: 05-26-2023 DISCHARGE PATIENT ELISA MCDONOUGH Start: 05-26-2023 PROTIME-INR HAMZA MANC Y Start: 05-26-2023 Basic metabolic 2000 panel - Serum or Plasma HAMZA MANCY Start: 05-26-2023 CBC panel - Blood by Automated count HAMZA MANCY Start: 05-26-2023 EXTRA TUBES HAMZA MANC Y Start: 05-26-2023 LAVENDER TOP HAMZA MANC Y Start: 05-26-2023 PST TOP HAMZA MANC Y Start: 05-26-2023 SST TOP HAMZA MANC Y Start: 05-26-2023 End: 05-26-2023 Basic metabolic panel calcium total Raisa James Frederick UNIT AID-[employer]IST Work Phone: Start: 05-26-2023 EXTRA TUBES Jazmine Britt MD Work Phone: Start: 05-26-2023 LAVENDER TOP Jazmine Britt MD Work Phone: Start: 05-26-2023 PST TOP Jazmine Britt MD Work Phone: Start: 05-26-2023 SST TOP Jazmine Britt MD Work Phone: Start: 05-25-2023 CALCIUM, IONIZED LEONARDOZA MANCY Start: 05-25-2023 Calcium ionized Dallasi chaparro Fredreick UNIT AID-[employer] SPECIALIST Work Phone: Start: 05-25-2023 PROTIME-INR HAMZA MANC Y Start: 05-25-2023 EXTRA TUBES HAMZA MANC Y Start: 05-25-2023 Hemoglobin A1c/Hemoglobin.total in Blood HAMZA MANCY Start: 05-25-2023 LAVENDER TOP HAMZA MANC Y Start: 05-25-2023 PST TOP HAMZA MANC Y Start: 05-25-2023 SST TOP HAMZA MANC Y Start: 05-25-2023 EXTRA TUBES Jazmine Britt MD Work Phone: Start: 05-25-2023 End: 05-25-2023 Hemoglobin glycosylated a1c Raisa may UNIT AID-[employer] SPECIALIST Work Phone: Start: 05-25-2023 LAVENDER TOP Jazmine [...] 05-24-2023 Comprehensive metabo lic panel Shakira Antunez UNIT AID-[employer] SPECIALIST Work Phone: Start: 05-24-2023 EXTRA TUBES Elisa [...] End: 05-24-2023 Comprehensive metabolic panel Shakira Antunez UNIT AID-[employer] SPECIALIST Work Phone: Start: 05-23-2023 Plain chest X-ray Dr. Mt Floyd Work Phone: Start: 05-23-2023 Urnls dip stick/tabl et rgnt auto w/o microscopy Rocio Elizalde UNIT AID.[employer] SPECIALIST Work Phone: Start: 05-15-2023 CT of chest, abdomen and pelvis without contrast Dr. Amos Floyd Work Phone: Start: 05-15-2023 Plain chest X-ray Dr. Mt Floyd Work Phone: Start: 01-19-2023 [employer] COVI D-19 VACCINE (2022- SEASON) AGE 12+ YR Amos Floyd MD Work Phone: Start: 12-19-2022 Radex foot complete minimum 3 views Omar Cruz Work Phone: Start: 12-01-2022 Radex foot complete minimum 3 views Omar Cruz Work Phone: Start: 11-08-2022 Radex foot complete minimum 3 views Jacinda Enriquez UNIT AID.[employer] CONTR[employer] SPECIALIST Work Phone: Start: 10-26-2022 Radex hips bilateral with pelvis minimum 5 views Amos Floyd MD Work Phone: Start: 10-26-2022 INFLUENZA VACCINE, P RSV FREE, AGE 65+ YR, HIGH DOSE, QUADRIVALENT (FLUZONE HIGH-DOSE) Amos Floyd MD Work Phone: Start: 12-20-2021 PFIZER-BIONTECH COVI D-19 BIVALENT BOOSTER VACCINE, AGE 12+ YR Rocio Older UNIT AID.[employer] CONTR[employer] SPECIALIST Work Phone: Start: 12-08-2021 Screening mammograph y [...] DTaP/Tdap/Td Vaccines (2 - Td or Tdap) [facility] Start: 11-10-2029 Urine microalbumin profile [facility] Start: 10-25-2027 Diabetes Screening Diabetes Screening [facility] Start: 07-06-2027 Diabetes Screening Diabetes Screening [facility] Start: 01-31-2027 Diabetes Screening Diabetes Screening [facility] Start: 11-10-2026 Diabetes Screening Diabetes Screening [facility] Start: 08-30-2026 Diabetes Screening Diabetes Screening [facility] Start: 06-30-2026 Diabetes Screening Diabetes Screening [facility] Start: 06-12-2026 Diabetes Screening Diabetes Screening [facility] Start: 06-10-2026 Diabetes Screening Diabetes Screening [facility] Start: 06-07-2026 Diabetes Screening Diabetes Screening [facility] Start: 05-25-2026 Diabetes Screening Diabetes Screening [facility] Start: 05-22-2026 Diabetes Screening Diabetes Screening [facility] Start: 05-11-2026 Diabetes Screening Diabetes Screening [facility] Start: 01-18-2026 Diabetes Screening Diabetes Screening [facility] Start: 12-20-2025 Screening for osteoporosis Bone Density Screening [facility] Start: 11-28-2025 Depression Screening Depression Screening [facility] Start: 11-28-2025 Echocardiography Echocardiogram [facility] Start: 10-31-2025 Creatinine measurement Creatinine Level [facility] Start: 10-31-2025 Diabetes: Estimated Glomerular Filtration Rate for Kidney Health Diabetes: Estimated Glomerular Filtration Rate for Kidney Health [facility] Start: 10-31-2025 Potassium measurement Potassium Level [facility] Start: 10-24-2025 Creatinine measurement Creatinine Level [facility] Start: 10-24-2025 Echocardiography Echocardiogram [facility] Start: 10-24-2025 Potassium measurement Potassium Level [facility] Start: 10-23-2025 Creatinine measurement Creatinine Level [facility] Start: 10-23-2025 Echocardiography Echocardiogram [facility] Start: 10-23-2025 Potassium measurement Potassium Level [facility] Start: 01-31-2025 Creatinine measurement Serum Creatinine [facility] Start: 01-31-2025 Hepatitis B surface antibody level LDL Cholesterol [facility] Start: 01-22-2025 Annual PCP Team Chronic Disease Visit Annual PCP Team Chronic Disease Visit [facility] Start: 01-22-2025 Anxiety Screening Anxiety Screening [facility] Start: 01-22-2025 Depression Screening Depression Screening [facility] Start: 01-22-2025 End: 01-22-2025 Patient encounter procedure 01/22/2025 8:40 AM EST Office Visit [facility] [place] [id number] [place] [address] Amos Floyd MD [address] [place] [address] Annual Medicare Wellness w/6 month follow-up [facility] [place] Comment on above: Annual Medicare Wellness w/6 month nat justinup Start: 01-13-2025 End: 04-14-2025 Comprehensive metabolic 2000 panel - Serum or Plasma COMPREHENSIVE METABOLIC PANEL Lab Routine Pure hypercholesterolemia Expected: 01/13/2025, Expires: 04/14/2025 [facility] Work Phone: Comment on above: Expected: 01/13/2025, Expires: Start: 01-13-2025 End: 04-14-2025 Lipid 1996 panel - Serum or Plasma LIPID PANEL, FASTING Lab Routine Pure hypercholesterolemia Expected: 01/13/2025, Expires: 04/14/2025 [facility] Comment on above: Expected: 01/13/2025, Expires: Start: 01-13-2025 End: 01-13-2025 Nursing evaluation of patient and report 01/13/2025 9:00 AM EST Nurse Visit Family [facility] [address] [place], [place] [phone] Nurse, Ny [address] [place], [place] [phone] [facility] [place] Comment on above: [facility] Start: 01-01-2025 End: 01-01-2025 Patient encounter procedure 01/01/2025 10:30 AM EST Office Visit [facility] [address] [place] [phone] Jefferson Adorno MD [address] [place], [place] [phone] [facility] Start: 11-28-2024 End: 11-28-2025 Basic metabolic 1998 panel - Serum or Plasma Basic metabolic panel Lab Routine S/P TAVR (transcatheter aortic valve replacement) Expected: 11/28/2024 (Approximate), Expires: 11/28/2025 [facility] Work Phone: Comment on above: Expected: 11/28/2024 (Approximate), Expi res: 11/28/2025 Start: 11-28-2024 End: 11-28-2024 Patient encounter procedure [facility] [address] [facility] Non-Invasive Cardiology Start: 11-23-2024 End: 10-24-2026 US Heart Transthoracic Transthoracic echocardiogram (TTE) complete with contrast, bubble, strain, and 3D PRN CV Echocardiography Routine Severe aortic stenosis Expected: 11/23/2024 (Approximate), Expires: 10/24/2026 [facility] Work Phone: Comment on above: Expected: 11/23/2024 (Approximate), Expi res: 10/24/2026 Start: 11-14-2024 End: 11-14-2024 Evaluation of diagnostic study results [facility] Start: 11-10-2024 Creatinine measurement Serum Creatinine [facility] Start: 10-31-2024 End: 10-31-2024 Patient encounter procedure 10/31/2024 11:00 AM EDT Office Visit [facility] [address] [place] [phone] Basim Joel, UNIT AID - AIRWAYS CONTROL SPECIALIST [address] [facility] [address] [place] [address] [facility] Start: 10-29-2024 End: 10-29-2024 Patient encounter procedure 10/29/2024 10:40 AM EDT Office Visit [facility] [place] [address] [place] [address] Amos Floyd MD [address] [place] [address] 2 month follow-up [facility] [place] Comment on above: 2 month follow-up Start: 10-23-2024 End: 10-23-2024 Patient encounter procedure 10/23/2024 9:00 AM EDT Office Visit [facility] [address] [place] [phone] Noble Chowdary MD [address] [place] [address] recurent uti [facility] Comment on above: recurent uti Start: 10-23-2024 End: 10-23-2024 Admission to same day surgery center 10/23/2024 7:30 AM EDT - 10/23/2024 9:15 AM EDT Surgery [facility] MAIN OR [address] [facility] [place] [phone] Memo Canas MD [address] [facility] [address] [place] [address] TRANSCATHETER AORTIC VALVE REPLACEMENT, TRANSTHORACIC ECHOCARDIOGRAM [facility] Comment on above: TRANSCATHETER AORTIC VALVE REPLACEMENT, TRANSTHORACIC ECHOCARDIOGRAM Start: 10-23-2024 End: 10-23-2024 Anesthesia consultation 10/23/2024 7:30 AM EDT Anesthesia Event [facility] OR [address] [facility] [place] [phone] Ben Harris, UNIT AID - SPORTS EQUIPMENT REPAIRER [address] [facility] [address] [place] [address] [facility] OR Start: 10-23-2024 Subsequent hospital visit by physician [facility] Comment on above: Severe aortic stenosis Start: 10-23-2024 End: 10-23-2024 TRANSCATHETER AORTIC VALVE REPLACEMENT (TAVR) - OR TRANSCATHETER AORTIC VALVE REPLACEMENT (TAVR) - OR Severe aortic stenosis 10/23/2024 7:30 AM EDT [facility] Start: 10-21-2024 Influenza vaccination Influenza Vaccine (#1) [facility] Start: 10-14-2024 End: 10-14-2025 Basic metabolic 1998 panel - Serum or Plasma Basic metabolic panel Lab Routine Severe aortic stenosis Expected: 10/14/2024 (Approximate), Expires: 10/14/2025 [facility] Work Phone: Comment on above: Expected: 10/14/2024 (Approximate), Expi res: 10/14/2025 Start: 10-14-2024 End: 10-14-2025 CBC panel - Blood by Automated count CBC Lab Routine Severe aortic stenosis Expected: 10/14/2024 (Approximate), Expires: 10/14/2025 [facility] Comment on above: Expected: 10/14/2024 (Approximate), Expi res: 10/14/2025 Start: 10-02-2024 End: 10-02-2025 Basic metabolic 1998 panel - Serum or Plasma Basic metabolic panel Lab Routine Renal insufficiency Expected: 10/02/2024 (Approximate), Expires: 10/02/2025 [employer] Work Phone: Comment on above: Expected: 10/02/2024 (Approximate), Expi res: 10/02/2025 Start: 09-26-2024 End: 09-26-2024 Patient encounter procedure 09/26/2024 1:45 PM EDT Appointment Radiology [address] [place], [place] [phone] Recurrent UTI [N39.0]; History of kidney stones [Z87.442] Radiology Comment on above: Recurrent UTI [N39.0]; History of kidney stones [Z87.442] Start: 09-19-2024 End: 09-19-2025 Basic metabolic 1997 panel - Serum or Plasma Basic metabolic panel Lab Routine Aortic valve stenosis, etiology of cardiac valve disease unspecified Expected: 09/19/2024 (Approximate), Expires: 09/19/2025 [employer] Work Phone: Comment on above: Expected: 09/19/2024 (Approximate), Expi res: 09/19/2025 Start: 09-19-2024 End: 09-19-2024 Patient encounter procedure [facility] [address] Start: 09-18-2024 End: 09-03-2025 CBC W Auto Differential panel - Blood CBC auto differential Lab Routine Nonrheumatic aortic valve stenosis Expected: 09/18/2024 (Approximate), Expires: 09/03/2025 [employer] Work Phone: Comment on above: Expected: 09/18/2024 (Approximate), Expi res: 09/03/2025 Start: 09-10-2024 End: 09-03-2025 Basic metabolic 1997 panel - Serum or Plasma Basic metabolic panel Lab Routine Nonrheumatic aortic valve stenosis Expected: 09/10/2024 (Approximate), Expires: 09/03/2025 [facility] Comment on above: Expected: 09/10/2024 (Approximate), Expi res: 09/03/2025 Start: 09-03-2024 End: 09-03-2025 CT Chest WO and CT angiogram Coronary arteries W contrast IV CTA Angiogram TAVR Imaging Routine Nonrheumatic aortic valve stenosis Expected: 09/03/2024, Expires: 09/03/2025 [employer] Work Phone: Comment on above: Expected: 09/03/2024, Expires: Start: 08-30-2024 Creatinine measurement Serum Creatinine [facility] Start: 08-29-2024 End: 08-29-2024 Patient encounter procedure 08/29/2024 10:40 AM EDT Office Visit [facility] [place] [address] [place] [address] Amos Floyd MD [address] [place], [place] [phone] 2 week follow-up [facility] [place] Comment on above: 2 week follow-up Start: 08-10-2024 Annual PCP Team Chronic Disease Visit Annual PCP Team Chronic Disease Visit [facility] Start: 08-09-2024 Patient discharge [facility] Start: 08-07-2024 Following clinical pathway protocol [facility] Start: 08-07-2024 Cardiac monitoring [facility] Start: 08-07-2024 Catheterization of vein [facility] Start: 08-07-2024 Notification of physician [facility] Start: 08-07-2024 Vital signs measurements [facility] Start: 08-07-2024 [facility] Start: 08-07-2024 CT Abdomen and Pelvis WO contrast [facility] Start: 08-07-2024 CT of abdomen and pelvis without contrast Abdomen/Pelvis without Cont [facility] Start: 08-07-2024 Measurement of occult blood in stool specimen using immunoassay [facility] Start: 08-07-2024 Admission procedure [facility] Start: 08-07-2024 Hospital admission, emergency, from emergency room, medical nature [facility] Start: 08-07-2024 [facility] Start: 08-07-2024 End: 08-07-2024 [facility] Start: 08-07-2024 Bacteria identified in Blood by Culture Blood Culture [facility] Start: 08-07-2024 Bacteria identified in Urine by Culture Urine Culture [facility] Start: 08-05-2024 Patient discharge [facility] Start: 07-24-2024 End: 07-24-2024 Patient encounter procedure 07/24/2024 11:00 AM EDT Office Visit [facility] [place] [address] [place] [address] Amos Floyd MD [address] [place] [address] 6 month follow up [facility] [place] Comment on above: 6 month follow up Start: 07-23-2024 Catheterization of left heart [facility] Start: 07-23-2024 Covid-19 Vaccine () Covid-19 Vaccine () [facility] Start: 07-23-2024 End: 07-23-2024 Evaluation of diagnostic study results [facility] Start: 07-10-2024 End: 07-10-2024 Nursing evaluation of patient and report 07/10/2024 9:15 AM EDT Nurse Visit [facility] [place] [address] [facility] [place] [address] Nurse, Ny [address] [place] [address] [facility] [place] Comment on above: [facility] Start: 06-30-2024 Creatinine measurement Serum Creatinine [facility] Start: 06-29-2024 Annual PCP Team Chronic Disease Visit Annual PCP Team Chronic Disease Visit [facility] Start: 06-12-2024 Complete blood count Hemoglobin/Hematocrit [facility] Start: 06-12-2024 Creatinine measurement Serum Creatinine [facility] Start: 06-11-2024 Complete blood count Hemoglobin/Hematocrit [facility] Start: 06-11-2024 Creatinine measurement Serum Creatinine [facility] Start: 06-07-2024 Complete blood count Hemoglobin/Hematocrit [facility] Start: 06-07-2024 Creatinine measurement Serum Creatinine [facility] Start: 05-30-2024 Annual PCP Team Chronic Disease Visit Annual PCP Team Chronic Disease Visit [facility] Start: 05-25-2024 Complete blood count Hemoglobin/Hematocrit [facility] Start: 05-25-2024 Creatinine measurement Serum Creatinine [facility] Start: 05-22-2024 Annual PCP Team Chronic Disease Visit Annual PCP Team Chronic Disease Visit [facility] Start: 05-22-2024 Creatinine measurement Serum Creatinine [facility] Start: 05-11-2024 Creatinine measurement Serum Creatinine [facility] Start: 05-11-2024 DIABETES SCREEN DIABETES SCREEN [facility] Start: 05-11-2024 Diabetes Screening Diabetes Screening [facility] Start: 03-22-2024 Annual PCP Team Chronic Disease Visit Annual PCP Team Chronic Disease Visit [facility] Start: 03-22-2024 BP Controlled (<130/80) BP Controlled (<130/80) [facility] Start: 02-21-2024 Advance Directive Discussion Advance Directive Discussion [facility] Start: 02-21-2024 Medicare Advantage Annual Wellness Visit Medicare [facility] Annual Wellness Visit [facility] Start: 02-01-2024 End: 02-01-2024 Patient encounter procedure 02/01/2024 10:40 AM EST Appointment [facility] [address] [place] [address] Nodule of lower lobe of right lung [R91.1] [facility] Comment on above: Nodule of lower lobe of right lung [R91. 1] Start: 01-24-2024 End: 04-24-2024 Basic metabolic 2000 panel - Serum or Plasma BASIC METABOLIC PANEL Lab Routine Stage 3b chronic kidney disease (HCC) Expected: 01/24/2024, Expires: 04/24/2024 [facility] Work Phone: Comment on above: Expected: 01/24/2024, Expires: Start: 01-24-2024 End: 04-24-2024 Lipid 1996 panel - Serum or Plasma LIPID PANEL BASIC Lab Routine Pure hypercholesterolemia Expected: 01/24/2024, Expires: 04/24/2024 [facility] Comment on above: Expected: 01/24/2024, Expires: Start: 01-23-2024 End: 01-23-2024 Patient encounter procedure 01/23/2024 9:40 AM EST Office Visit [facility] [place] [address] [place] [address] Amos Floyd MD [address] [place] [address] Medicare Wellness [facility] [place] Comment on above: Medicare Wellness Start: 01-20-2024 Annual PCP Team Chronic Disease Visit Annual PCP Team Chronic Disease Visit [facility] Start: 01-20-2024 BP Controlled (<130/80) BP Controlled (<130/80) [facility] Start: 01-19-2024 Complete blood count Hemoglobin/Hematocrit [facility] Start: 01-19-2024 Creatinine measurement Serum Creatinine [facility] Start: 01-19-2024 Hemoglobin/Hematocrit Hemoglobin/Hematocrit [facility] Start: 01-19-2024 Hepatitis B surface antibody level LDL Cholesterol [facility] Start: 01-19-2024 Serum Creatinine Serum Creatinine [facility] Start: 01-11-2024 End: 01-11-2024 Nursing evaluation of patient and report 01/11/2024 2:00 PM EST Nurse Visit [facility] [address] [place], [place] [phone] Nurse, Ny [address] [place] [id number] prolia injection already approved. [facility] [place] Comment on above: prolia injection already approved. Start: 12-29-2023 End: 12-29-2023 Patient encounter procedure 12/29/2023 9:30 AM EST Radiology [facility] [address] [place] [id number] Actionable Findings Phone Call [facility] Comment on above: Actionable Findings Phone Call Start: 10-27-2023 ANNUAL PCP TEAM CHRONIC DISEASE VISIT ANNUAL PCP TEAM CHRONIC DISEASE VISIT [facility] Start: 10-27-2023 BP CONTROLLED (<130/80) BP CONTROLLED (<130/80) [facility] Start: 10-22-2023 Covid-19 Vaccine ( season) Covid-19 Vaccine ( season) [facility] Start: 10-22-2023 Covid-19 Vaccine ( season) Covid-19 Vaccine ( season) [facility] Start: 10-22-2023 Influenza [facility] Start: 09-19-2023 End: 09-19-2023 ambulatory 09/19/2023 11:30 AM EDT OT/PT/Speech Visit [facility] [address] [place] [address] Kole El, PT [address] [place] [address] Physical deconditioning [R53.81]; Muscle weakness [M62.81]; Gait abnormality [R26.9] [facility] Comment on above: Physical deconditioning [R53.81]; Muscle weakness [M62.81]; Gait abnormality [R26.9] Start: 09-12-2023 End: 09-12-2023 ambulatory 09/12/2023 11:30 AM EDT OT/PT/Speech Visit [facility] [address] [place] [address] Kole El, PT [address] [place] [address] Physical deconditioning [R53.81]; Muscle weakness [M62.81]; Gait abnormality [R26.9] [facility] Comment on above: Physical deconditioning [R53.81]; Muscle weakness [M62.81]; Gait abnormality [R26.9] Start: 09-08-2023 End: 09-08-2023 ambulatory 09/08/2023 2:30 PM EDT OT/PT/Speech Visit [facility] [address] [place] [address] Kole El, PT [address] [place] [address] Physical deconditioning [R53.81]; Muscle weakness [M62.81]; Gait abnormality [R26.9] [facility] Comment on above: Physical deconditioning [R53.81]; Muscle weakness [M62.81]; Gait abnormality [R26.9] Start: 09-05-2023 End: 09-05-2023 ambulatory 09/05/2023 3:00 PM EDT OT/PT/Speech Visit [facility] [address] [facility] [place] [address] Kole El, PT [address] [place] [address] Physical deconditioning [R53.81]; Muscle weakness [M62.81]; Gait abnormality [R26.9] [facility] Comment on above: Physical deconditioning [R53.81]; Muscle weakness [M62.81]; Gait abnormality [R26.9] Start: 08-30-2023 End: 08-30-2023 ambulatory 08/30/2023 3:00 PM EDT OT/PT/Speech Visit [facility] [address] [facility] [place] [address] Kole El, PT [address] [place] [address] Physical deconditioning [R53.81]; Muscle weakness [M62.81]; Gait abnormality [R26.9] [facility] Comment on above: Physical deconditioning [R53.81]; Muscle weakness [M62.81]; Gait abnormality [R26.9] Start: 08-21-2023 End: 08-21-2023 ambulatory 08/21/2023 11:45 AM EDT OT/PT/Speech Visit [facility] [address] [facility] [place] [address] Margot Gisel, [employer] [address] [place] [address] Physical deconditioning [R53.81]; Muscle weakness [M62.81]; Gait abnormality [R26.9] [facility] Comment on above: Physical deconditioning [R53.81]; Muscle weakness [M62.81]; Gait abnormality [R26.9] Start: 08-15-2023 End: 08-15-2023 Patient encounter procedure 08/15/2023 3:30 PM EDT Office Visit [facility] [address] [place] [phone] Chastity Luke APRN.AIRWAYS CONTROL SPECIALIST [address] [place] [address] Hospital Follow up, [place]si. [facility] Comment on above: Hospital Follow up, elsi. Start: 08-11-2023 End: 08-11-2023 Patient encounter procedure 08/11/2023 10:40 AM EDT Office Visit [facility] [place] [address] [place], [place] [phone] Amos Floyd MD [address] [place] [address] 6 week follow-up [facility] [place] Comment on above: 6 week follow-up Start: 08-09-2023 End: 08-09-2023 ambulatory 08/09/2023 9:15 AM EDT OT/PT/Speech Visit [facility] [address] [place], [place] [phone] Kole El, PT [address] [place], [place] [id number] R26.9 (ICD-10-CM) - Gait abnormality [facility] Comment on above: R26.9 (ICD-10-CM) - Gait abnormality Start: 08-02-2023 End: 08-02-2023 ambulatory [facility] Comment on above: R26.9 (ICD-10-CM) - Gait abnormality Start: 07-26-2023 End: 07-26-2023 ambulatory [facility] Comment on above: R26.9 (ICD-10-CM) - Gait abnormality Start: 07-21-2023 ANNUAL PCP TEAM CHRONIC DISEASE VISIT ANNUAL PCP TEAM CHRONIC DISEASE VISIT [facility] Start: 07-21-2023 BP CONTROLLED (<130/80) BP CONTROLLED (<130/80) [facility] Start: 07-20-2023 End: 07-20-2023 Patient encounter procedure 07/20/2023 1:40 PM EDT Office Visit [facility] [place] [address] [facility] [place] [address] Amos Floyd MD [address] [place] [address] 6 month follow-up [facility] [place] Comment on above: 6 month follow-up Start: 07-19-2023 End: 07-19-2023 ambulatory 07/19/2023 9:00 AM EDT OT/PT/Speech Visit [facility] [address] [facility] [place] [address] Kole El, PT [address] [facility] [place] [facility] [place] [address] R26.9 (ICD-10-CM) - Gait abnormality [facility] Comment on above: R26.9 (ICD-10-CM) - Gait abnormality Start: 07-11-2023 End: 07-11-2023 ambulatory 07/11/2023 9:00 AM EDT OT/PT/Speech Visit [facility] [address] [facility] [place] [address] Kole El, PT [address] [facility] [place], [place] [address] R26.9 (ICD-10-CM) - Gait abnormality [facility] Comment on above: R26.9 (ICD-10-CM) - Gait abnormality Start: 07-05-2023 End: 07-05-2023 ambulatory 07/05/2023 9:45 AM EDT OT/PT/Speech Visit [facility] [address] [place] [address] Kole El, PT [address] [facility] [place] [address] R26.9 (ICD-10-CM) - Gait abnormality [place] [facility] Comment on above: R26.9 (ICD-10-CM) - Gait abnormality Start: 07-01-2023 End: 09-30-2023 25-hydroxyvitamin D3 [Mass/volume] in Serum or Plasma VITAMIN D 25 HYDROXY Lab Routine Hypercalcemia Age-related osteoporosis with current pathological fracture with routine healing Expected: 07/01/2023, Expires: 09/30/2023 [facility] Comment on above: Expected: 07/01/2023, Expires: Start: 07-01-2023 End: 09-30-2023 Calcium.ionized [Moles/volume] in Blood CALCIUM, IONIZED Lab Routine Hypercalcemia Age-related osteoporosis with current pathological fracture with routine healing Expected: 07/01/2023, Expires: 09/30/2023 [facility] Comment on above: Expected: 07/01/2023, Expires: Start: 07-01-2023 End: 09-30-2023 Comprehensive metabolic 2000 panel - Serum or Plasma COMPREHENSIVE METABOLIC PANEL Lab Routine Hypercalcemia Age-related osteoporosis with current pathological fracture with routine healing Expected: 07/01/2023, Expires: 09/30/2023 [facility] Work Phone: Comment on above: Expected: 07/01/2023, Expires: Start: 07-01-2023 End: 09-30-2023 Cortisol [Mass/volume] in Serum or Plasma CORTISOL, SERUM Lab Routine Hypokalemia Adrenal hypofunction (HCC) Expected: 07/01/2023, Expires: 09/30/2023 [facility] Comment on above: Expected: 07/01/2023, Expires: Start: 07-01-2023 End: 09-30-2023 [facility] 1 Lab Routine Age-related osteoporosis with current pathological fracture with routine healing Expected: 07/01/2023, Expires: 09/30/2023 [facility] Comment on above: Expected: 07/01/2023, Expires: Start: 07-01-2023 End: 09-30-2023 Parathyrin.intact [Mass/volume] in Serum or Plasma PTH INTACT Lab Routine Hypercalcemia Age-related osteoporosis with current pathological fracture with routine healing Expected: 07/01/2023, Expires: 09/30/2023 [facility] Comment on above: Expected: 07/01/2023, Expires: Start: 07-01-2023 End: 09-30-2023 Phosphate [Mass/volume] in Serum or Plasma PHOSPHORUS INORGANIC Lab Routine Hypercalcemia Age-related osteoporosis with current pathological fracture with routine healing Expected: 07/01/2023, Expires: 09/30/2023 [facility] Comment on above: Expected: 07/01/2023, Expires: Start: 06-30-2023 End: 06-30-2023 Patient encounter procedure 06/30/2023 9:40 AM EDT Office Visit [facility] [place] [address] [place] [address] Amos Floyd MD [address] [place], [place] [phone] 1 month follow up with [address]. Amor [facility] [place] Comment on above: [address] Amor Start: 06-28-2023 End: 06-28-2023 ambulatory 06/28/2023 11:15 AM EDT OT/PT/Speech Visit [facility] [address] [place], [place] [address] Kole El, PT [address] [place], [place] [address] R26.9 (ICD-10-CM) - Gait abnormality [facility] Comment on above: R26.9 (ICD-10-CM) - Gait abnormality Start: 06-21-2023 End: 06-21-2023 ambulatory 06/21/2023 1:00 PM EDT OT/PT/Speech Visit [facility] [address] [place], [place] [phone] Kole El, PT [address] [place] [address] R26.9 (ICD-10-CM) - Gait abnormality [facility] Comment on above: R26.9 (ICD-10-CM) - Gait abnormality Start: 05-23-2023 [facility] Start: 05-23-2023 End: 08-22-2023 Bacteria identified in Urine by Culture [facility] [place] Work Phone: Comment on above: Expected: 05/23/2023, Expires: Start: 05-20-2023 Covid-19 Vaccine () Covid-19 Vaccine () [facility] Start: 05-15-2023 [facility] Start: 02-20-2023 Advance Directive Discussion Advance Directive Discussion [facility] Start: 02-20-2023 Behavioral Health Screening Behavioral Health Screening [facility] Start: 02-20-2023 Depression Assessment Depression Assessment [facility] Start: 01-06-2023 Hepatitis B surface antibody level LDL CHOLESTEROL [facility] Start: 12-21-2022 End: 02-20-2023 CBC panel - Blood by Automated count CBC Lab Routine Primary hypertension Stage 3b chronic kidney disease (HCC) Expected: 12/21/2022 (Approximate), Expires: 02/20/2023 [facility] [place] Work Phone: Comment on above: Expected: 12/21/2022 (Approximate), Expi res: 02/20/2023 Start: 12-21-2022 End: 02-20-2023 Comprehensive metabolic 2000 panel - Serum or Plasma COMP METABOLIC PANEL Lab Routine Pure hypercholesterolemia Primary hypertension Expected: 12/21/2022 (Approximate), Expires: 02/20/2023 [facility] [place] Work Phone: Comment on above: Expected: 12/21/2022 (Approximate), Expi res: 02/20/2023 Start: 12-21-2022 End: 02-20-2023 Lipid 1996 panel - Serum or Plasma LIPID PANEL BASIC Lab Routine Pure hypercholesterolemia Expected: 12/21/2022 (Approximate), Expires: 02/20/2023 [facility] [place] Work Phone: Comment on above: Expected: 12/21/2022 (Approximate), Expi res: 02/20/2023 Start: 12-20-2022 ANNUAL PCP TEAM CHRONIC DISEASE VISIT ANNUAL PCP TEAM CHRONIC DISEASE VISIT [facility] Start: 12-06-2022 ANNUAL PCP TEAM CHRONIC DISEASE VISIT ANNUAL PCP TEAM CHRONIC DISEASE VISIT [facility] Start: 10-21-2022 Covid-19 Vaccine () Covid-19 Vaccine () [facility] Start: 10-21-2022 Influenza vaccination INFLUENZA (#1) [facility] Start: 07-20-2022 ANNUAL PCP TEAM CHRONIC DISEASE VISIT ANNUAL PCP TEAM CHRONIC DISEASE VISIT [facility] Start: 07-20-2022 BP CONTROLLED (<130/80) BP CONTROLLED (<130/80) [facility] Start: 05-11-2022 SERUM CREATININE SERUM CREATININE [facility] Start: 04-19-2022 COVID-19 VACCINE (6 - Pfizer series) COVID-19 VACCINE (6 - Pfizer series) [facility] Start: 02-20-2022 ADVANCE DIRECTIVE DISCUSSION ADVANCE DIRECTIVE DISCUSSION [facility] Start: 02-20-2022 DEPRESSION ASSESSMENT DEPRESSION ASSESSMENT [facility] Start: 12-20-2021 End: 02-19-2022 Lipid 1996 panel - Serum or Plasma LIPID PANEL BASIC Lab Routine Pure hypercholesterolemia Expected: 12/20/2021, Expires: 02/19/2022 [facility] [place] Work Phone: Comment on above: Expected: 12/20/2021, Expires: Start: 11-20-2021 Prothrombin time [facility] Work Phone: Start: 11-19-2021 Prothrombin time [facility] Work Phone: Start: 11-18-2021 Partial thromboplastin time, activated [facility] Work Phone: Start: 11-18-2021 Patient discharge [facility] Work Phone: Start: 11-18-2021 Care planning and problem solving actions [facility] Work Phone: Start: 09-29-2022 Prothrombin time [facility] Work Phone: Start: 11-17-2021 End: 11-17-2021 Following clinical pathway protocol [facility] Work Phone: Start: 11-17-2021 Referral to service [facility] Work Phone: Start: 11-17-2021 Assessment of risk of venous thromboembolism [facility] Work Phone: Start: 11-17-2021 Consultation [facility] Work Phone: Start: 11-17-2021 Continuous pulse oximetry [facility] Work Phone: Start: 11-17-2021 Insertion of catheter into peripheral vein [facility] Work Phone: Start: 11-17-2021 Measuring intake and output [facility] Work Phone: Start: 11-17-2021 Providing care according to standard [facility] Work Phone: Start: 11-17-2021 Vital signs measurements [facility] Work Phone: Start: 11-17-2021 End: 11-17-2021 [facility] Work Phone: Start: 11-17-2021 Verification routine [facility] Work Phone: Start: 11-17-2021 Admission procedure [facility] Work Phone: Start: 11-17-2021 Blood chemistry [facility] Work Phone: Start: 11-17-2021 Patient referral to dietitian [facility] Work Phone: Start: 11-16-2021 [facility] Work Phone: Start: 11-16-2021 End: 11-16-2021 Blood culture [facility] Work Phone: Start: 10-21-2021 Influenza vaccination INFLUENZA (#1) [facility] Start: 10-13-2021 End: 10-27-2021 Influenza virus A and B RNA and SARS-CoV-2 (COVID-19) N gene panel - Respiratory specimen by NAN with probe detection COVID WITH FLUA+B, ROUTINE Microbiology Routine Suspected COVID-19 virus infection Expected: 10/13/2021, Expires: 10/27/2021 [facility] [place] Work Phone: Comment on above: Expected: 10/13/2021, Expires: Start: 10-08-2021 Screening for osteoporosis Bone Density Screening [facility] Start: 09-14-2021 COVID-19 VACCINE (5 - Booster for Pfizer series) COVID-19 VACCINE (5 - Booster for Pfizer series) [facility] Start: 07-28-2021 Adult depression screening assessment DEPRESSION SCREENING [facility] Start: 06-09-2021 Hepatitis B surface antibody level LDL CHOLESTEROL [facility] Start: 05-11-2021 HEMOGLOBIN/HEMATOCRIT HEMOGLOBIN/HEMATOCRIT [facility] Start: 02-20-2021 ADVANCE DIRECTIVE DISCUSSION [facility] Start: 02-20-2021 DEPRESSION ASSESSMENT DEPRESSION ASSESSMENT [facility] Start: 08-30-2019 BP CONTROLLED (<130/80) BP CONTROLLED (<130/80) [facility] Start: 03-07-2019 Screening for osteoporosis Bone Density Scan [facility] Start: 2003 RSV Vaccine (1 - 1-dose 60+ series) RSV Vaccine (1 - 1-dose 60+ series) [facility] Start: 1961 Anxiety Screening Anxiety Screening [facility] Start: 1961 Depression Screening Depression Screening [facility] Start: 1961 Diabetes: Urine Albumin-Creatinine Ratio for Kidney Health Diabetes: Urine Albumin-Creatinine Ratio for Kidney Health [facility] Start: 1955 Depression Screening Depression Screening [facility] Start: 1943 Creatinine measurement Creatinine Level [facility] Start: 1943 Echocardiography Echocardiogram [facility] Start: 1943 Lipid panel Lipid Panel [facility] Start: 1943 Medicare Annual Wellness Visit Medicare Annual Wellness Visit (AWV) [facility] Start: 1943 Potassium measurement Potassium Level [facility] Start: 1943 Screening for osteoporosis Bone Density Scan [facility] Anion gap measurement [facility] Work Phone: Bacteria identified in Blood by Culture Blood Culture [facility] Work Phone: Bacteria identified in Urine by Culture BACTERIAL CULTURE, URINE Microbiology Routine Acute cystitis without hematuria 08/14/2024 12:22 PM EDT [facility] [place] Work Phone: Bacteria identified in Urine by Culture BACTERIAL CULTURE, URINE Microbiology Routine History of UTI 08/29/2024 11:32 AM EDT [facility] [place] Work Phone: Basic metabolic 2008 panel with ionized calcium - Serum or Plasma [facility] Bilirubin measuremen t, urine [facility] Work Phone: Bilirubin measuremen t, urine [facility] Blood culture [facility] Work Phone: BUN/Creatinine ratio [facility] Work Phone: Calcium [Mass/volume ] in Serum or Plasma [facility] Work Phone: Carbon dioxide, tota l [Moles/volume] in Serum or Plasma [facility] Work Phone: CBC W Auto Different ial panel - Blood [facility] Chloride [Moles/volu me] in Serum or Plasma [facility] Work Phone: Creatinine [Moles/volume] in Serum or Plasma [facility] Work Phone: End: 02-13-2025 CT Chest WO contrast CT CHEST WO IVCON Radiology Routine Nodule of lower lobe of right lung needing follor up CT 1 Occurrences starting 01/15/2024 until 02/13/2025 [facility] [place] Work Phone: Comment on above: 1 Occurrences starting 01/15/2024 until 02/13/2025 CT Chest WO contrast CT CHEST WO IVCON Radiology Routine Nodule of lower lobe of right lung needing follor up CT 02/01/2024 11:20 AM EST [facility] [place] Work Phone: End: 12-29-2024 DXA Skeletal system.axial Views for bone density DXA-AXIAL SKELETON Radiology Routine Age-related osteoporosis with current pathological fracture with routine healing 1 Occurrences starting 11/30/2023 until 12/29/2024 [facility] [place] Work Phone: Comment on above: 1 Occurrences starting 11/30/2023 until 12/29/2024 ECG 12 lead - CLINIC PERFORMED ECG 12 lead - CLINIC PERFORMED CV ECG Routine Aortic valve stenosis, etiology of cardiac valve disease unspecified 09/19/2024 3:16 PM [facility] Work Phone: ECG COMPLETE ECG COMPLETE ECG 10/29/2024 11:31 AM EDT [facility] [place] Electrocardiogram, 12-lead PRN ACS symptoms Electrocardiogram, 12-lead PRN ACS symptoms ECG Routine As needed until discontinued starting 05/24/2023 [facility] Work Phone: Comment on above: As needed until discontinued starting Glucose [Mass/volume ] in Serum or Plasma [facility] Work Phone: Hematocrit [Volume Fraction] of Blood [facility] Work Phone: Hemoglobin [Mass/vol ume] in Blood [facility] Work Phone: Hemoglobin [Presence ] in Urine [facility] Work Phone: Hemoglobin [Presence ] in Urine [facility] INR in Blood by Coagulation assay [facility] Work Phone: Lactic acid measurement [facility] Leukocytes [#/volume ] in Blood [facility] Work Phone: Mean corpuscular hemoglobin concentration determination [facility] Work Phone: Mean corpuscular hemoglobin determination [facility] Work Phone: Measurement of keton es in urine using dipstick [facility] Work Phone: Measurement of keton es in urine using dipstick [facility] Measurement of renal function [facility] Work Phone: Microscopic urinalysis [facility] Work Phone: Microscopic urinalysis [facility] Neutrophil count [facility] Work Phone: Neutrophil percent differential count [facility] Work Phone: Organism count, microscopic method [facility] End: 05-24-2023 Parathyrin related protein [Moles/volume] in Serum or Plasma [facility] Work Phone: Comment on above: Once (Lab) for 1 Occurrences starting until 05/24/2023 End: 05-25-2023 Parathyrin related protein [Moles/volume] in Serum or Plasma PTH-Related Peptide Lab Routine Once (Lab) for 1 Occurrences starting 05/25/2023 until 05/25/2023 [facility] Work Phone: Comment on above: Once (Lab) for 1 Occurrences starting until 05/25/2023 Partial thromboplast in time, activated [facility] Work Phone: Partial thromboplast in time, activated [facility] Patient Education Hypercalcemia Dc [facility] Work Phone: Patient referral [facility] Work Phone: pH of Urine [facility] Work Phone: pH of Urine [facility] Platelets [#/volume] in Blood [facility] Work Phone: Potassium [Moles/vol ume] in Serum or Plasma [facility] Work Phone: Prothrombin time [facility] Work Phone: Prothrombin time [facility] Red blood cell count [facility] Work Phone: Red cell distributio n width determination [facility] Work Phone: End: 01-05-2023 Screening mammography bi 2-view breast inc cad TAE SCREENING Radiology Routine Encounter for screening mammogram for malignant neoplasm of breast 1 Occurrences starting 12/06/2021 until 01/05/2023 [facility] [place] Work Phone: Comment on above: 1 Occurrences starting 12/06/2021 until 01/05/2023 Sodium [Moles/volume ] in Serum or Plasma [facility] Work Phone: Specific gravity of Urine [facility] Work Phone: Specific gravity of Urine [facility] TRANSCATHETER AORTIC VALVE REPLACEMENT (TAVR) TRANSCATHETER AORTIC VALVE REPLACEMENT (TAVR) Severe aortic stenosis [facility] TRANSCATHETER AORTIC VALVE REPLACEMENT (TAVR) - OR TRANSCATHETER AORTIC VALVE REPLACEMENT (TAVR) - OR Severe aortic stenosis [facility] Troponin T.cardiac [Mass/volume] in Serum or Plasma by High sensitivity method [facility] Urea nitrogen [Mass/volume] in Serum or Plasma [facility] Work Phone: End: 05-24-2023 Urinalysis complete panel - Urine Urinalysis with Reflex Microscopic Lab Routine Once (Lab) for 1 Occurrences starting 05/24/2023 until 05/24/2023 [facility] Work Phone: Comment on above: Once (Lab) for 1 Occurrences starting until 05/24/2023 Urinalysis, blood, qualitative [facility] Work Phone: Urine culture [facility] Urine dipstick for glucose [facility] Work Phone: Urine dipstick for glucose [facility] Urine dipstick for leukocyte esterase [facility] Work Phone: Urine dipstick for leukocyte esterase [facility] Urine dipstick for nitrite [facility] Work Phone: Urine dipstick for nitrite [facility] Urine dipstick for protein [facility] Work Phone: Urine dipstick for protein [facility] Urine examination [facility] Work Phone: Urine examination [facility] Urine microscopy: epithelial cells [facility] Work Phone: Urine microscopy: epithelial cells [facility] Urine microscopy: re d cells [facility] Urine Microscopy: wh ite cells [facility] Work Phone: Urobilinogen [Presen ce] in Urine [facility] Work Phone: Urobilinogen [Presen ce] in Urine [facility] End: 10-19-2025 US Kidney - bilateral and Urinary bladder US KIDNEY/BLADDER Radiology Routine Recurrent UTI History of kidney stones 1 Occurrences starting 09/19/2024 until 10/19/2025 [facility] [place] Work Phone: Comment on above: 1 Occurrences starting 09/19/2024 until 10/19/2025 Vitamin D, 25-hydrox y measurement [facility] Work Phone: White blood cell count [facility] End: 01-27-2025 XR Chest PA and Lateral XR CHEST 2V FRONTAL/LAT Radiology STAT Abnormal finding of diagnostic imaging 1 Occurrences starting 12/29/2023 until 01/27/2025 [facility] [place] Work Phone: Comment on above: 1 Occurrences starting 12/29/2023 until 01/27/2025 XR Chest PA and Lateral [facility] End: 01-18-2024 XR FOOT GENERAL 3V AP/LAT/OBL RIGHT XR FOOT GENERAL 3V AP/LAT/OBL RIGHT Radiology Routine Closed displaced fracture of fifth metatarsal bone of right foot, initial encounter 1 Occurrences starting 12/19/2022 until 01/18/2024 [facility] [place] Work Phone: Comment on above: 1 Occurrences starting 12/19/2022 until 01/18/2024 XR FOOT GENERAL 3V AP/LAT/OBL RIGHT XR FOOT GENERAL 3V AP/LAT/OBL RIGHT Radiology Routine Closed displaced fracture of fifth metatarsal bone of right foot, initial encounter 01/18/2023 10:52 AM EST [facility] [place] Work Phone: End: 11-25-2023 XR HIP BILATERAL 5V PEL/AP/LAT EACH HIP XR HIP BILATERAL 5V PEL/AP/LAT EACH HIP Radiology Routine Hip pain, unspecified laterality 1 Occurrences starting 10/26/2022 until 11/25/2023 [facility] [place] Work Phone: Comment on above: 1 Occurrences starting 10/26/2022 until 11/25/2023 XR HIP BILATERAL 5V PEL/AP/LAT EACH HIP XR HIP BILATERAL 5V PEL/AP/LAT EACH HIP Radiology Routine Hip pain, unspecified laterality 10/26/2022 2:59 PM EDT [facility] [place] Work Phone: [facility] Immunizations Immunization Date Immunization Notes Care Provider Fa [facility] 10-29-2024 influenza, high dose seasonal, preservative-free Amos Floyd MD Work Phone: [facility] 07-24-2024 COVID-19 vaccine, ag e 12+ yr (PFIZER-BIONTECH COMIRNATY) Amos Floyd MD Work Phone: [facility] 01-23-2024 COVID-19 vaccine, ag e 12+ yr (PFIZER-BIONTECH COMIRNATY) Amos Floyd MD Work Phone: [facility] 01-23-2024 influenza, high dose seasonal, preservative-free Amos Floyd MD Work Phone: [facility] 01-23-2024 influenza virus vacc ine, unspecified formulation Amos Floyd MD Work Phone: [facility] 01-19-2023 COVID-19 vaccine, ag e 12+ yr, season (PFIZER-BIONTECH) Amos Floyd MD Work Phone: [facility] Work Phone: 10-26-2022 influenza (HD-IIV4) vaccine, age 65+ yr, high dose, quadrivalent, PF (FLUZONE HIGH-DOSE) Amos lFoyd MD Work Phone: [facility] 10-26-2022 influenza virus vacc ine, unspecified formulation Gisel Frost PTA Work Phone: [facility] 12-20-2021 COVID-19 booster vaccine, age 12+ yr, bivalent (PFIZER-BIONTECH) Rocio Older [employer] Work Phone: [facility] 11-18-2021 influenza, injectabl e, quadrivalent, contains preservative Elisa Mcdonough MD Work Phone: [facility] Work Phone: 11-17-2021 influenza, injectabl e, quadrivalent, preservative free Dr. Amos Floyd Work Phone: [facility] 11-17-2021 influenza, seasonal, injectable Dr. Amos Floyd Work Phone: [facility] 07-20-2021 COVID-19 vaccine, ag e 12+ yr (PFIZER-BIONTECH - LOPEZ TOP) Amos Floyd MD Work Phone: [facility] Work Phone: 12-26-2020 SARS-CoV-2, Unspecified Tino Mcdonough MD Work Phone: [facility] Work Phone: 12-09-2020 influenza, injectabl e, quadrivalent, contains preservative Elisa Mcdonough MD Work Phone: [facility] Work Phone: 11-20-2020 influenza, high-dose , quadrivalent vaccine (FLUZONE HIGH DOSE QUADRIVALENT) Amos Floyd MD Work Phone: [facility] Work Phone: 06-19-2020 COVID-19 vaccine, ag e 12+ yr (PFIZER-BIONTECH - PURPLE TOP) Amos Floyd MD Work Phone: [facility] Work Phone: 05-26-2020 COVID-19 vaccine, ag e 12+ yr (PFIZER-BIONTECH - PURPLE TOP) Amos Floyd MD Work Phone: [facility] Work Phone: 02-17-2020 zoster vaccine recombinant Amos Floyd MD Work Phone: [facility] Work Phone: 11-17-2019 influenza, high dose seasonal, preservative-free Amos Floyd MD Work Phone: [facility] 11-17-2019 influenza, high-dose , quadrivalent vaccine (FLUZONE HIGH DOSE QUADRIVALENT) Amos Floyd MD Work Phone: [facility] Work Phone: 11-17-2019 zoster vaccine recombinant Amos Floyd MD Work Phone: [facility] Work Phone: 11-13-2019 influenza, injectabl e, quadrivalent, contains preservative Elisa Mcdonough MD Work Phone: [facility] Work Phone: 11-11-2019 tetanus toxoid, redu rk diphtheria toxoid, and acellular pertussis vaccine, adsorbed Dr. Amos Floyd Work Phone: [facility] 11-08-[address] Amos Floyd Work Phone: [facility] 11-08-2019 influenza, seasonal, injectable, preservative free Elisa Mcdonough MD Work Phone: [facility] Work Phone: 12-10-2018 influenza, high dose seasonal, preservative-free Amos Floyd MD Work Phone: [facility] Work Phone: 10-21-2018 influenza, injectabl e, quadrivalent, contains preservative Elisa Mcdonough MD Work Phone: [facility] Work Phone: 12-21-2017 pneumococcal vaccine , unspecified formulation Amos Floyd MD Work Phone: [facility] Work Phone: 11-02-2017 influenza, high dose seasonal, preservative-free Amos Floyd MD Work Phone: [facility] Work Phone: 10-27-2015 influenza, seasonal, injectable Amos Floyd MD Work Phone: [facility] 08-19-2015 tetanus and diphther ia toxoids, adsorbed, preservative free, for adult use (5 Lf of tetanus toxoid and 2 Lf of diphtheria toxoid) Amos Floyd MD Work Phone: [facility] 12-03-2014 influenza, high dose seasonal, preservative-free mAos Floyd MD Work Phone: [facility] 10-13-2014 influenza, seasonal, injectable Amos Floyd MD Work Phone: [facility] Work Phone: 10-13-2014 zoster vaccine, live Amos Floyd MD Work Phone: [facility] Work Phone: 03-20-2014 pneumococcal conjuga te vaccine, 13 valent Amos Floyd MD Work Phone: [facility] 11-20-2013 influenza, seasonal, injectable Amos Floyd MD Work Phone: [facility] 11-24-2012 influenza virus vacc ine, unspecified formulation Amos Floyd MD Work Phone: [facility] Work Phone: 11-13-[address] Amos Floyd Work Phone: [facility] 11-13-2012 influenza, seasonal, injectable, preservative free Amos Floyd MD Work Phone: [facility] Work Phone: 11-13-2012 pneumococcal Conjuga te, unspecified formulation Rocio Alex [facility]TELLY Work Phone: [facility] 11-13-2012 pneumococcal polysaccharide vaccine, 23 valent Amos Floyd MD Work Phone: [facility] Work Phone: 11-13-[address] Oniel Floyd Work Phone: [facility] Work Phone: 11-13-2012 pneumococcal vaccine , unspecified formulation Dr. Amos Floyd Work Phone: [facility] 01-06-2012 influenza virus vacc ine, unspecified formulation Amos Floyd MD Work Phone: [facility] Work Phone: 05-03-2009 tuberculin skin test ; purified protein derivative solution, intradermal Xr Hardwick Work Phone: [facility] 04-16-2009 novel influenza-H1N1 -09, all formulations Amos Floyd MD Work Phone: [facility] 07-18-2008 pneumococcal polysaccharide vaccine, 23 valent Amos Floyd MD Work Phone: [facility] Work Phone: 01-12-2007 influenza virus vacc ine, unspecified formulation Amos Floyd MD Work Phone: [facility] Work Phone: 12-14-2005 influenza virus vacc ine, unspecified formulation Amos Floyd MD Work Phone: [facility] Work Phone: 04-26-2005 tetanus and diphther ia toxoids, adsorbed, preservative free, for adult use (2 Lf of tetanus toxoid and 2 Lf of diphtheria toxoid) Amos Floyd MD Work Phone: [facility] Payers Date Payer Category Payer Medicare O [employer] MEDICARE [id number] 2023 Self-pay [id number] 2023 Medicare (Managed Care) 1.2. [id number] 2023 Private Health Insurance [id number] 2017 Medicare HUMANA MEDICARE HUMANA MEDICARE PPO [id number] 2017-Present [phone] [facility] [id number] [place] [id number] PPO [id number] 2017 Medicare [id number] 2017 Private Health Insurance [id number] 1945 Unknown [id number] 2.16840.1.402701.3.579.2. 594 1945 Unknown [id number] 2.16.840.1.707048.3.579.2. 1246 Unknown [id number] 2.840.1.112847.3.579.2. 462 Unknown [id number] 2.16.840.1.139001.3.579.2. 462 Unknown [id number] 2.16.840.1.742857.3.579.2. 462 Unknown [id number] 2.16.840.1.145577.3.579.2. 462 Unknown [id number] 2.16.840.1.784259.3.579.2. 462 Unknown [id number] 2.16.840.1.117025.3.579.2. 462 Unknown [id number] 2.16.840.1.404002.3.579.2. 462 Unknown [id number] 2.16.840.1.799102.3.579.2. 462 Unknown [id number] 2.16.840.1.009670.3.579.2. 462 Unknown [id number] 2.16.840.1.289008.3.579.2. 462 Unknown [id number] 2.16.840.1.267806.3.579.2. 462 Unknown [id number] 2.16.840.1.091127.3.579.2. 462 Unknown [id number] 2.16.840.1.157103.3.579.2. 462 Unknown [id number] 2.16.840.1.443389.3.579.2. 462 Unknown [id number] 2.16.840.1.136936.3.579.2. 462 Unknown [id number] 2.16.840.1.749285.3.579.2. 462 Unknown [id number] 2.16.840.1.403047.3.579.2. 462 Unknown [id number] 2.16.840.1.872217.3.579.2. 462 Unknown [id number] 2.16.840.1.940148.3.579.2. 462 Unknown [id number] 2.16.840.1.580945.3.579.2. 462 Unknown [id number] 2.16.840.1.083918.3.579.2. 462 Unknown [id number] 2.16.840.1.206913.3.579.2. 462 Unknown [id number] 2.16.840.1.383993.3.579.2. 462 Unknown [id number] 2.16.840.1.881542.3.579.2. 462 Unknown [id number] 2.16.840.1.368861.3.579.2. 462 Unknown [id number] 2.16.840.1.607453.3.579.2. 462 Unknown [id number] 2.16.840.1.049590.3.579.2. 462 Unknown [id number] 2.16.840.1.989981.3.579.2. 462 Unknown [id number] 2.16.840.1.145150.3.579.2. 462 Social History Date Type Detail Facility Start: 2021 End: 05-23-2023 Tobacco smoking status NJIS Unknown if ever smoked [facility] Start: 06-20-2020 None [facility] Start: 06-20-2020 Homeless [facility] Start: 06-20-2020 Secondhand [facility] Start: 1945 Sex Assigned At Female W [facility] Start: 10-13-2021 End: 09-02-2024 Tobacco smoking status NHIS Never smoked tobacco [facility] Work Phone: Start: 07-20-2021 End: 09-19-2024 Alcohol intake Current non-drinker of alcohol (finding) [facility] Start: 1945 Sex Assigned At Not on file [facility] Start: 07-10-2021 End: 05-24-2023 Exposure to SARS-CoV-2 (event) Not sure [facility] Work Phone: Start: 10-13-2021 End: 09-02-2024 Tobacco use and exposure Smokeless tobacco non-user [facility] Start: 07-20-2022 End: 11-28-2024 History of Social function [facility] Work Phone: Start: 07-20-2022 End: 11-28-2024 Tobacco use panel [facility] Work Phone: Start: 01-22-2012 Adult Depression Screening Assessment 0 [facility] Work Phone: How often to you hav e a drink containing alcohol? Never [facility] Work Phone: How hard is it for y ou to pay for the very basics like food, housing, medical care, and heating Not very hard [facility] Work Phone: In the past 12 month s, was there a time when you were not able to pay the mortgage or rent on time? No [facility] Work Phone: (I/We) worried wheth er (my/our) food would run out before (I/we) got money to buy more. Never true [facility] Start: 09-20-2021 End: 05-20-2024 Sex Female (finding) [facility] Start: 09-03-2024 End: 11-28-2024 Alcoholic beverage intake Lifetime non-drinker (finding) [facility] Medical Equipment Procedure Code Equipment Code Equipment Origin al Text Equipment Identifier Dates Valve Aor Phong 3 Ultra 23mm - [id number] - [id number] Start: 10-23-2024 Device Closure Perclose 6fr - [id number] Start: 10-23-2024 Device Closure Perclose 6fr - [id number] Start: 10-23-2024 Device Closure Vascade 6/7fr - [id number] Start: 10-23-2024 Comment on above: Description: Placed in right IJ Goals Date Patient Goal Desired Activity /State Personal health goal Functional Status Date Assessment Result Facility 11-28-2024 Patient Health [facility] ionnaire 2 item (PHQ-2) [Reported] [facility] 08-09-2024 Functional status Chair [facility] Work Phone: 06-13-2023 Are you deaf, or do you have serious difficulty hearing No 06/13/2023 12:43 PM Elizabeth Rolle RN No [facility] 06-13-2023 Are you blind, or do you have serious difficulty seeing, even when wearing glasses No 06/13/2023 12:43 PM Elizabeth Rolle RN No [facility] 06-13-2023 Do you have serious difficulty walking or climbing stairs No 06/13/2023 12:43 PM Elizabeth Rolle RN No [facility] 06-13-2023 Do you have difficul ty dressing or bathing No 06/13/2023 12:43 PM Elizabeth Rolle RN No [facility] 06-13-2023 Because of a physica l, mental, or emotional condition, do you have difficulty doing errands alone such as visiting a physician's office or shopping No 06/13/2023 12:43 PM Elizabeth Rolle RN No [facility] 11-18-2021 Functional status Ambulates [facility] Work Phone: 11-17-2021 Functional status Bedrest [facility] Work Phone: Mental Status Date Assessment Result Facility 08-09-2024 Cognitive function Voice/Name [facility] Work Phone: 08-07-2024 Cognitive function Level Of Cons ciousness Awake;Alert;Appropriate;Fol lows Commands [facility] Work Phone: 06-13-2023 Because of a physica l, mental, or emotional condition, do you have serious difficulty concentrating, remembering, or making decisions No 06/13/2023 12:43 PM Elizabeth Rolle RN No [facility] 05-31-2023 Cognitive function Voice/Name [facility] Work Phone: 05-23-2023 Cognitive function Level Of Cons ciousness Awake;Alert;Appropriate [facility] Work Phone: 05-15-2023 Cognitive function Level Of Cons ciousness Awake;Alert;Appropriate;Fol lows Commands [facility] Work Phone: 11-25-2022 Cognitive function Awake;Alert;A ppropriate;Fol lows Commands [facility] Work Phone: 05-27-2022 Cognitive function Awake;Alert;A ppropriate;Fol lows Commands [facility] Work Phone: 11-26-2021 Cognitive function Awake;Alert;A ppropriate;Fol lows Commands [facility] Work Phone: 11-18-2021 Cognitive function Voice/Name;To uch/Shaking;Li ght Pain;Deep Pain [facility] Work Phone: 11-16-2021 Cognitive function Level Of Cons ciousness Awake;Alert;Appropriate;Fol lows Commands [facility] Work Phone: 05-27-2021 Cognitive function Level Of Cons ciousness Awake;Alert [facility] Work Phone: Clinical Notes 04-20-2009 to 11-28-2024 Basim Joel, [facility] - 11/28/2024 11:00 AM EDDayami Joel, [facility] - 11/28/2024 11:00 AM EDDayami Joel, [facility] - 10/31/2024 11:00 AM EDTPatient Instructions Note Date & Type Note Facility 11-28-2024 History of Presen t illness Narrative Images from the original note were not included. [facility] [address] [address] Dept: [phone] Dept Visit type: Established : 1945 Reason for Visit: Cardiac Valve Problem Assessment and Plan 1. Chronic systolic heart failure (HCC) Class III. Category C Continue metoprolol. Resume Lisinopril 5 mg daily. I will have her see the heart failure team given her severe LV dysfunction, Plumas's disease, and CKD. She will have a BMP in one week 2. S/P TAVR (transcatheter aortic valve replacement) Normal functioning bioprosthetic valve. Continue Eliquis, SBE prophylaxis. WE will see her back in one year 3. Deep vein thrombosis (DVT) of proximal vein of both lower extremities, unspecified chronicity (HCC) Remains on Eliquis. She had such edema prior to TAVR And diuresis, there was question if her IVC filter was occluded. Swelling has improved with diuresis and after TAVR. Will hold off on referral to vascular (Dr. Mata Cage, for now) 4. CKD. Renal function stable. Has appt with nephrology next week 5. 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 Na/K have remained stable [address] Adorno- est heart failure Subjective Ms Peralta is an 79 yr old female known to Dr. 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 She had an admission at [facility] in July for UTI after heart cath and developed extensive bilat DVTs after stopping Coumadin for 5 days, she was switched to Eliquis. Subsequently, she required diuresis for HFrEF which resulted in 15 weight loss and bump in creatinine. Ultimately, she underwent femoral TAVR with 23 mm Saoien S3 valve on 10/24/24. Post procedure echo showed EF 18%, mean ao gradient 5 mm Hg, 2+ MR, 3 + TR with possible leaflet prolapse. Last visit we dosed her with 3 extra days of Lasix 20 and then advised for prn dosing with weight parameters. We started metoprolol. Lisinopril had been on hold secondary to lower BP. Renal function 10/31/2024 showed bun 32/creat 1.47 (stable). Today she is here for one month follow up and echocardiogram. She notes that she continues to improve slowly. Swelling is overall better but she still notes some abdominal swelling. Her weight has been relatively stable (dry weight approximately 145 lbs). She has mild dyspnea with exertion, no orthopnea. She denies any chest pain, palpitations, bleeding, syncope. She asks me to write a note to [facility] adjusting her weight parameters to maintain her status there. We had a long conversation about this. Her echo today shows EF 20 %, mean ao gradient 10 mm Hg, 2 + MR, 2 + TR. Allergies[1] Current Medications[2] Medical History[3] Social History Tobacco Use Smoking status: Never Smokeless tobacco: Never Substance Use Topics Alcohol use: Never Surgical History[4] Family History[5] Objective Vitals: 11/28/24 1117 BP: (S) (!) 150/92 BP Location: Left arm Patient Position: Sitting BP Cuff Size: Adult Pulse: 92 SpO2: 99% Weight: 151 lb 3.2 oz (68.6 kg) Height: 5' 2 (1.575 m) Physical Exam Constitutional: Appearance: Normal appearance. HENT: Head: Normocephalic and atraumatic. Nose: Nose normal. Eyes: Conjunctiva/sclera: Conjunctivae normal. Pupils: Pupils are equal, round, and reactive to light. Cardiovascular: Rate and Rhythm: Normal rate and regular rhythm. Pulmonary: Effort: Pulmonary effort is normal. Breath sounds: Normal breath sounds. Abdominal: General: Bowel sounds are normal. Palpations: Abdomen is soft. Comments: Abdominal bloating Musculoskeletal: General: Normal range of motion. Cervical back: Normal range of motion and neck supple. Skin: General: Skin is warm and dry. Neurological: General: No focal deficit present. Mental Status: She is alert and oriented to person, place, and time. Psychiatric: Mood and Affect: Mood normal. Thought Content: Thought content normal. Data Reviewed and Summarized EF BP Date Value Ref Range Status 11/28/2024 20 (A) 55 - 100 % Final Review of tests/labs done/ordered within my specialty: EKG in office: unable Review of tests/labs done/ordered outside my specialty: Independent interpretation of tests: Basim Joel, [employer] - [employer] SPECIALIST [1] Allergies Allergen Reactions Amlodipine Swelling Ciprofloxacin Other and Rash rash with 500mg dose Penicillins Other and Rash rash [2] Current Outpatient Medications: acetaminophen (Tylenol) 325 MG tablet, Take 650 mg by mouth every 6 hours as needed., Disp: , Rfl: apixaban (Eliquis) 5 MG tablet, Take 5 mg by mouth 2 times daily., Disp: , Rfl: ascorbic acid (Vitamin C) 1000 MG tablet, Take 1,000 mg by mouth Nightly., Disp: , Rfl: denosumab (Prolia) 60 MG/ML solution prefilled syringe, Inject 60 mg under the skin every 6 (six) months., Disp: , Rfl: hydrocortisone (Cortef) 10 MG tablet, Take 1 tablet (10 mg) by mouth 3 times daily., Disp: , Rfl: lisinopril 5 MG tablet, Take 5 mg by mouth daily., Disp: , Rfl: methenamine hippurate (Hiprex) 1 g tablet, Take 1 g by mouth Nightly., Disp: , Rfl: metoprolol succinate XL (Toprol-XL) 50 MG 24 hr tablet, Take 1 tablet (50 mg) by mouth daily. Do not crush or chew., Disp: 30 tablet, Rfl: 11 nitroglycerin (Nitrostat) 0.4 MG SL tablet, TAKE 1 TABLET BY MOUTH EVERY 5-15 MINUTES NEEDED for cardiac or chest pain, Disp: , Rfl: simvastatin (Zocor) 20 MG tablet, Take 20 mg by mouth Nightly., Disp: , Rfl: [3] Past Medical History: Diagnosis Date Plumas anemia 2010 [4] Past Surgical History: Procedure Laterality Date BLADDER REPAIR CARDIAC CATHETERIZATION N/A 10/23/2024 Performed by Memo Canas MD at [facility] OR CYSTECTOMY (HISTORICAL) LAPAROSCOPIC NEPHRECTOMY (HISTORICAL) Left TOTAL ABDOMINAL HYSTERECTOMY [5] Family History Problem Relation Name Age of Onset Heart attack Mother Stroke Father documented in this encounter [facility] 11-28-2024 History of Presen t illness Narrative Images from the original note were not included. [facility] - [address] [address] Dept: [phone] Dept Visit type: Established : 1945 Reason for Visit: Cardiac Valve Problem Assessment and Plan 1. Chronic systolic heart failure (HCC) Class III. Stage C Continue metoprolol. Resume Lisinopril 5 mg daily. I will have her see the heart failure team given her severe LV dysfunction, Plumas's disease, and CKD. She will have a BMP in one week 2. S/P TAVR (transcatheter aortic valve replacement) Normal functioning bioprosthetic valve. Continue Eliquis, SBE prophylaxis. WE will see her back in one year 3. Deep vein thrombosis (DVT) of proximal vein of both lower extremities, unspecified chronicity (HCC) Remains on Eliquis. She had such edema prior to TAVR And diuresis, there was question if her IVC filter was occluded. Swelling has improved with diuresis and after TAVR. Will hold off on referral to vascular (Dr. Mata Cage, for now) 4. CKD. Renal function stable. Has appt with nephrology next week 5. 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 Na/K have remained stable [address] Adorno- est heart failure Subjective Ms Peralta is an 79 yr old female known to Dr. 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 She had an admission at [facility] in July for UTI after heart cath and developed extensive bilat DVTs after stopping Coumadin for 5 days, she was switched to Eliquis. Subsequently, she required diuresis for HFrEF which resulted in 15 weight loss and bump in creatinine. Ultimately, she underwent femoral TAVR with 23 mm Saoien S3 valve on 10/24/24. Post procedure echo showed EF 18%, mean ao gradient 5 mm Hg, 2+ MR, 3 + TR with possible leaflet prolapse. Last visit we dosed her with 3 extra days of Lasix 20 and then advised for prn dosing with weight parameters. We started metoprolol. Lisinopril had been on hold secondary to lower BP. Renal function 10/31/2024 showed bun 32/creat 1.47 (stable). Today she is here for one month follow up and echocardiogram. She notes that she continues to improve slowly. Swelling is overall better but she still notes some abdominal swelling. Her weight has been relatively stable (dry weight approximately 145 lbs). She has mild dyspnea with exertion, no orthopnea. She denies any chest pain, palpitations, bleeding, syncope. She asks me to write a note to [facility] adjusting her weight parameters to maintain her status there. We had a long conversation about this. Her echo today shows EF 20 %, mean ao gradient 10 mm Hg, 2 + MR, 2 + TR. Allergies[1] Current Medications[2] Medical History[3] Social History Tobacco Use Smoking status: Never Smokeless tobacco: Never Substance Use Topics Alcohol use: Never Surgical History[4] Family History[5] Objective Vitals: 11/28/24 1117 BP: (S) (!) 150/92 BP Location: Left arm Patient Position: Sitting BP Cuff Size: Adult Pulse: 92 SpO2: 99% Weight: 151 lb 3.2 oz (68.6 kg) Height: 5' 2 (1.575 m) Physical Exam Constitutional: Appearance: Normal appearance. HENT: Head: Normocephalic and atraumatic. Nose: Nose normal. Eyes: Conjunctiva/sclera: Conjunctivae normal. Pupils: Pupils are equal, round, and reactive to light. Cardiovascular: Rate and Rhythm: Normal rate and regular rhythm. Pulmonary: Effort: Pulmonary effort is normal. Breath sounds: Normal breath sounds. Abdominal: General: Bowel sounds are normal. Palpations: Abdomen is soft. Comments: Abdominal bloating Musculoskeletal: General: Normal range of motion. Cervical back: Normal range of motion and neck supple. Skin: General: Skin is warm and dry. Neurological: General: No focal deficit present. Mental Status: She is alert and oriented to person, place, and time. Psychiatric: Mood and Affect: Mood normal. Thought Content: Thought content normal. Data Reviewed and Summarized EF BP Date Value Ref Range Status 11/28/2024 20 (A) 55 - 100 % Final Review of tests/labs done/ordered within my specialty: EKG in office: unable Review of tests/labs done/ordered outside my specialty: Independent interpretation of tests: Basim Joel, [employer] - [employer]IST [1] Allergies Allergen Reactions Amlodipine Swelling Ciprofloxacin Other and Rash rash with 500mg dose Penicillins Other and Rash rash [2] Current Outpatient Medications: acetaminophen (Tylenol) 325 MG tablet, Take 650 mg by mouth every 6 hours as needed., Disp: , Rfl: apixaban (Eliquis) 5 MG tablet, Take 5 mg by mouth 2 times daily., Disp: , Rfl: ascorbic acid (Vitamin C) 1000 MG tablet, Take 1,000 mg by mouth Nightly., Disp: , Rfl: denosumab (Prolia) 60 MG/ML solution prefilled syringe, Inject 60 mg under the skin every 6 (six) months., Disp: , Rfl: hydrocortisone (Cortef) 10 MG tablet, Take 1 tablet (10 mg) by mouth 3 times daily., Disp: , Rfl: lisinopril 5 MG tablet, Take 5 mg by mouth daily., Disp: , Rfl: methenamine hippurate (Hiprex) 1 g tablet, Take 1 g by mouth Nightly., Disp: , Rfl: metoprolol succinate XL (Toprol-XL) 50 MG 24 hr tablet, Take 1 tablet (50 mg) by mouth daily. Do not crush or chew., Disp: 30 tablet, Rfl: 11 nitroglycerin (Nitrostat) 0.4 MG SL tablet, TAKE 1 TABLET BY MOUTH EVERY 5-15 MINUTES NEEDED for cardiac or chest pain, Disp: , Rfl: simvastatin (Zocor) 20 MG tablet, Take 20 mg by mouth Nightly., Disp: , Rfl: [3] Past Medical History: Diagnosis Date Moris anemia 2010 [4] Past Surgical History: Procedure Laterality Date BLADDER REPAIR CARDIAC CATHETERIZATION N/A 10/23/2024 Performed by Memo Canas MD at [facility] OR CYSTECTOMY (HISTORICAL) LAPAROSCOPIC NEPHRECTOMY (HISTORICAL) Left TOTAL ABDOMINAL HYSTERECTOMY [5] Family History Problem Relation Name Age of Onset Heart attack Mother Stroke Father documented in this encounter [facility] 11-14-2024 Progress note [facility] 10-31-2024 History of Present illness Narrative Images from the original note were not included. [facility] - [address] [address] Dept: [phone] Dept Visit type: Established : 1945 Reason for Visit: Cardiac Valve Problem and Hospital Follow-up Assessment and Plan 1. Severe aortic stenosis S/p TAVR. Contiue Eliquis, SBE prophylaxis.Echo one month 2. Stage 3b chronic kidney disease (HCC) Repeat BMP 3. 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 Chronic systolic heart failure (HCC) Appears decompensated. Newly lower EF post TAVR. Will repeat renal function. ADD Toprol XL 50 mg po q hs. Hold Lisinopril for now. Lasix prn for additional weight gain 5. 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 Follow up one month, will call with lab results. Subjective Ms Peralta is an 79 yr old female known to Dr. Marte with a PMH for CAD, HPL, DVT, PE, Plumas's disease, CKD s/p left nephrectomy (donated) and right partial nephrectomy (GFR 33 on 10/24/24 ), MVP, HFrEF, severe (EF 47 %, mean gradient 39 mm Hg) ; she had an admission in July for UTI after heart cath and developed extensive bilat DVTs after stopping Coumadin for 5 days, she was switched to Eliquis. Subsequently, she required diuresis for HFrEF which resulted in 15 weight loss and bump in creatinine. Ultimately, she underwent femoral TAVR with 23 mm Saoien S3 valve on 10/24/24. Post procedure echo showed EF 18%, mean ao gradient 5 mm Hg, 2+ MR, 3 + TR with possible leaflet prolapse. Today she is here for hospital follow up. Notes weight gain from baseline (140 lbs), was 160 lbs when she saw me 09/19. Notes some improvement in breathing since TAVR. + Swelling in legs and abdomen. No longer taking Lisinopril- BP has been lower Allergies[1] Current Medications[2] Medical History[3] Social History Tobacco Use Smoking status: Never Smokeless tobacco: Never Substance Use Topics Alcohol use: Never Surgical History[4] Family History[5] Objective Vitals: 10/31/24 1049 BP: 132/86 BP Location: Left arm Patient Position: Sitting BP Cuff Size: Adult Pulse: 96 SpO2: 98% Weight: 153 lb (69.4 kg) Height: 5' 2 (1.575 m) Physical Exam Constitutional: Appearance: Normal appearance. HENT: Head: Normocephalic and atraumatic. Nose: Nose normal. Eyes: Conjunctiva/sclera: Conjunctivae normal. Pupils: Pupils are equal, round, and reactive to light. Neck: Comments: + JVD Cardiovascular: Rate and Rhythm: Normal rate and regular rhythm. Pulmonary: Effort: Pulmonary effort is normal. Breath sounds: Normal breath sounds. Abdominal: General: Bowel sounds are normal. Palpations: Abdomen is soft. Musculoskeletal: General: Normal range of motion. Cervical back: Normal range of motion and neck supple. Right lower leg: Edema present. Left lower leg: Edema present. Skin: General: Skin is warm and dry. Neurological: General: No focal deficit present. Mental Status: She is alert and oriented to person, place, and time. Psychiatric: Mood and Affect: Mood normal. Thought Content: Thought content normal. Data Reviewed and Summarized EF BP Date Value Ref Range Status 10/24/2024 18 (A) 55 - 100 % Final Review of tests/labs done/ordered within my specialty: EKG in office: not done Review of tests/labs done/ordered outside my specialty: Independent interpretation of tests: LIDIA Patel CNP [1] Allergies Allergen Reactions Amlodipine Swelling Ciprofloxacin Other and Rash rash with 500mg dose Penicillins Other and Rash rash [2] Current Outpatient Medications: acetaminophen (Tylenol) 325 MG tablet, Take 650 mg by mouth every 6 hours as needed., Disp: , Rfl: apixaban (Eliquis) 5 MG tablet, Take 5 mg by mouth 2 times daily., Disp: , Rfl: ascorbic acid (Vitamin C) 1000 MG tablet, Take 1,000 mg by mouth Nightly., Disp: , Rfl: denosumab (Prolia) 60 MG/ML solution prefilled syringe, Inject 60 mg under the skin every 6 (six) months., Disp: , Rfl: hydrocortisone (Cortef) 10 MG tablet, Take 1 tablet (10 mg) by mouth 3 times daily., Disp: , Rfl: lisinopril 5 MG tablet, Take 5 mg by mouth daily., Disp: , Rfl: methenamine hippurate (Hiprex) 1 g tablet, Take 1 g by mouth Nightly., Disp: , Rfl: metoprolol succinate XL (Toprol-XL) 50 MG 24 hr tablet, Take 1 tablet (50 mg) by mouth daily. Do not crush or chew., Disp: 30 tablet, Rfl: 11 nitroglycerin (Nitrostat) 0.4 MG SL tablet, TAKE 1 TABLET BY MOUTH EVERY 5-15 MINUTES NEEDED for cardiac or chest pain, Disp: , Rfl: simvastatin (Zocor) 20 MG tablet, Take 20 mg by mouth Nightly., Disp: , Rfl: [3] Past Medical History: Diagnosis Date Plumas anemia 2010 [4] Past Surgical History: Procedure Laterality Date BLADDER REPAIR CARDIAC CATHETERIZATION N/A 10/23/2024 Performed by Memo Canas MD at [facility] OR CYSTECTOMY (HISTORICAL) LAPAROSCOPIC NEPHRECTOMY (HISTORICAL) Left TOTAL ABDOMINAL HYSTERECTOMY [5] Family History Problem Relation Name Age of Onset Heart attack Mother Stroke Father documented in this encounter [facility] 10-31-2024 Instructions LIDIA Patel CNP - 10/31/2024 11:00 AM EDT If weight gain greater than 3lbs/24 hours or > 5lbs in one week. Take 1/2 Lasix (furosemide) documented in this encounter [facility] 10-31-2024 Miscellaneous Notes Addended by: JAQUELIN MONCADA on: 10/31/2024 02:58 PM Modules accepted: Orders documented in this encounter [facility] 10-31-2024 Note Addended by: JAQUELIN CARBONE on: 10/31/2024 02:58 PM Modules accepted: Orders [facility] 10-31-2024 Note Addended by: JAQUELIN CARBONE on: 10/31/2024 02:58 PM Modules accepted: Orders [facility] 10-29-2024 Note HNO ID: [id number] Author: AMOS FLOYD MD Service: ? Author Type: Physician Type: Progress Notes Filed: 10/29/2024 12:03 Note Text: Subjective Linda Peralta is a 79 year old female here with her daughter. She had TAVR at [facility] last week. She had some fluid retention prior to surgery and was prescribed furosemide 40 mg daily for 3 days with weight loss of around 20 pounds. She started regaining weight and was again advised 2 days of furosemide last week. Echo last week showed EF dropped to 20%. They have another echocardiogram scheduled. She has a follow up with [facility] this , and the [facility] later this month. ACTIVE PROBLEM LIST Disorder of Autonomic Nervous [...] incidentally noted on imaging study, right side. S/P Tavr (Transcatheter Aortic Valve Replacement), Bioprosthetic Current Outpatient Medications Medication Sig roflumilast (ZORYVE) 0.3 % cream Apply to affected area once daily. estradiol (ESTRACE) 0.01 % (0.1 mg/gram) vaginal cream Use 1 g vaginally two times a week. apixaban (ELIQUIS) 5 mg tab(s) Take 1 tablet by mouth two times a day. ipratropium bromide (ATROVENT) 42 mcg (0.06 %) nasal spray Use 2 sprays in the nose four times daily. hydrocortisone (CORTEF) 10 mg tablet Take 2 tablets by mouth every morning AND 1 tablet every evening. As directed per endocrinology.. Ascorbic Acid 1,000 mg tablet Take 1,000 mg by mouth daily at bedtime. Methenamine Hippurate (HIPREX) 1 gram tablet Take 1 g by mouth daily at bedtime. simvastatin (ZOCOR) 20 mg tablet Take 1 tablet by mouth daily at bedtime. nitroglycerin sublingual (NITROQUICK) 0.4 mg SL tablet Dissolve 1 tablet under the tongue every 5 minutes as needed. acetaminophen (TYLENOL) 325 mg tablet Take 650 mg by mouth every 6 hours as needed. No current facility-administered medications for this visit. Review of Systems Constitutional: Positive for unexpected weight change. Negative for fatigue and fever. Respiratory: Negative for cough, chest tightness and shortness of breath. Cardiovascular: Positive for leg swelling. Negative for chest pain and palpitations. Gastrointestinal: Negative for abdominal pain, nausea and vomiting. Genitourinary: Negative for difficulty urinating. Hematological: Bruises/bleeds easily. Objective BP 112/72 (BP Site: Left Arm, BP Position: Sitting, BP Cuff Size: Large Adult) Pulse 60 Temp 36.4 ?C (97.5 ?F) (Temporal) Resp 20 Wt 69.6 kg (153 lb 7 oz) BMI 28.06 kg/m? Physical Exam Constitutional: General: She is not in acute distress. Appearance: She is not ill-appearing or diaphoretic. Eyes: Conjunctiva/sclera: Conjunctivae normal. Cardiovascular: Rate and Rhythm: Regular rhythm. Tachycardia present. Heart sounds: S1 normal and S2 normal. Murmur (ULSB) heard. Systolic murmur is present with a grade of 1/6. Pulmonary: Effort: Pulmonary effort is normal. No respiratory distress. Breath sounds: No wheezing or rales. Musculoskeletal: Right lower le+ Pitting Edema present. Left lower le+ Pitting Edema present. Neurological: General: No focal deficit present. Mental Status: She is alert. EKG RESULTS: normal sinus rhythm and LVH with repolarization abnormality, rate 100 similar to previous EKG on file. ASSESSMENT/PLAN: 1. S/p TAVR (transcatheter aortic valve replacement), bioprosthetic - ICD9: V42.2, ICD10: Z95.3 (primary diagnosis) - Follow up with cardiology. 2. Pure hypercholesterolemia - ICD9: 272.0, ICD10: E78.00 Controlled. - SIMVASTATIN 20 MG TABLET - COMPREHENSIVE METABOLIC PANEL - LIPID PANEL, FASTING 3. Encounter for immunization - ICD9: V03.89, ICD10: Z23 - INFLUENZA VACCINE, PRSV FREE, AGE 65+ YR, HIGH DOSE, TRIVALENT (FLUZONE HIGH-DOSE) 4. Stage 3b chronic kidney disease (HCC) - ICD9: 585.3, ICD10: N18.32 - eGFR: 23 Stable - Counseled on avoiding NSAIDs, adequate hydration 5. Hypertensive kidney disease with stage 3b chronic kidney disease (HCC) - ICD9: 403.90, 585.3, ICD10: I12.9, N18.32 - Controlled - Continue current medications 6. Nonrheumatic aortic valve stenosis - ICD9: 424.1, ICD10: I35.0 - See #1. Amos Floyd MD [facility] 10-29-2024 History of Present illness Narrative Subjective Linda Peralta is a 79 year old female here with her daughter. She had TAVR at [facility] last week. She had some fluid retention prior to surgery and was prescribed furosemide 40 mg daily for 3 days with weight loss of around 20 pounds. She started regaining weight and was again advised 2 days of furosemide last week. Echo last week showed EF dropped to 20%. They have another echocardiogram scheduled. She has a follow up with [facility] this , and the [facility] later this month. ACTIVE PROBLEM LIST Disorder of Autonomic Nervous [...] incidentally noted on imaging study, right side. S/P Tavr (Transcatheter Aortic Valve Replacement), Bioprosthetic Current Outpatient Medications Medication Sig roflumilast (ZORYVE) 0.3 % cream Apply to affected area once daily. estradiol (ESTRACE) 0.01 % (0.1 mg/gram) vaginal cream Use 1 g vaginally two times a week. apixaban (ELIQUIS) 5 mg tab(s) Take 1 tablet by mouth two times a day. ipratropium bromide (ATROVENT) 42 mcg (0.06 %) nasal spray Use 2 sprays in the nose four times daily. hydrocortisone (CORTEF) 10 mg tablet Take 2 tablets by mouth every morning AND 1 tablet every evening. As directed per endocrinology.. Ascorbic Acid 1,000 mg tablet Take 1,000 mg by mouth daily at bedtime. Methenamine Hippurate (HIPREX) 1 gram tablet Take 1 g by mouth daily at bedtime. simvastatin (ZOCOR) 20 mg tablet Take 1 tablet by mouth daily at bedtime. nitroglycerin sublingual (NITROQUICK) 0.4 mg SL tablet Dissolve 1 tablet under the tongue every 5 minutes as needed. acetaminophen (TYLENOL) 325 mg tablet Take 650 mg by mouth every 6 hours as needed. No current facility-administered medications for this visit. Review of Systems Constitutional: Positive for unexpected weight change. Negative for fatigue and fever. Respiratory: Negative for cough, chest tightness and shortness of breath. Cardiovascular: Positive for leg swelling. Negative for chest pain and palpitations. Gastrointestinal: Negative for abdominal pain, nausea and vomiting. Genitourinary: Negative for difficulty urinating. Hematological: Bruises/bleeds easily. Objective BP 112/72 (BP Site: Left Arm, BP Position: Sitting, BP Cuff Size: Large Adult) Pulse 60 Temp 36.4 C (97.5 F) (Temporal) Resp 20 Wt 69.6 kg (153 lb 7 oz) BMI 28.06 kg/m Physical Exam Constitutional: General: She is not in acute distress. Appearance: She is not ill-appearing or diaphoretic. Eyes: Conjunctiva/sclera: Conjunctivae normal. Cardiovascular: Rate and Rhythm: Regular rhythm. Tachycardia present. Heart sounds: S1 normal and S2 normal. Murmur (ULSB) heard. Systolic murmur is present with a grade of 1/6. Pulmonary: Effort: Pulmonary effort is normal. No respiratory distress. Breath sounds: No wheezing or rales. Musculoskeletal: Right lower le+ Pitting Edema present. Left lower le+ Pitting Edema present. Neurological: General: No focal deficit present. Mental Status: She is alert. EKG RESULTS: normal sinus rhythm and LVH with repolarization abnormality, rate 100 similar to previous EKG on file. ASSESSMENT/PLAN: 1. S/p TAVR (transcatheter aortic valve replacement), bioprosthetic - ICD9: V42.2, ICD10: Z95.3 (primary diagnosis) - Follow up with cardiology. 2. Pure hypercholesterolemia - ICD9: 272.0, ICD10: E78.00 Controlled. - SIMVASTATIN 20 MG TABLET - COMPREHENSIVE METABOLIC PANEL - LIPID PANEL, FASTING 3. Encounter for immunization - ICD9: V03.89, ICD10: Z23 - INFLUENZA VACCINE, PRSV FREE, AGE 65+ YR, HIGH DOSE, TRIVALENT (FLUZONE HIGH-DOSE) 4. Stage 3b chronic kidney disease (HCC) - ICD9: 585.3, ICD10: N18.32 - eGFR: 23 Stable - Counseled on avoiding NSAIDs, adequate hydration 5. Hypertensive kidney disease with stage 3b chronic kidney disease (HCC) - ICD9: 403.90, 585.3, ICD10: I12.9, N18.32 - Controlled - Continue current medications 6. Nonrheumatic aortic valve stenosis - ICD9: 424.1, ICD10: I35.0 - See #1. Amos Floyd MD documented in this encounter [facility] 10-28-2024 Telephone encounter Note Per TVT registry guidelines, 5 meter walk test completed in office on 09/03/24. 7 seconds, 7 seconds, 7 seconds [facility] 10-28-2024 Miscellaneous Notes Per TVT registry guidelines, 5 meter walk test completed in office on 09/03/24. 7 seconds, 7 seconds, 7 seconds Letter refaxed to [phone] along w/ Megcornelios chart note. Confirmation 10/16/24 at 3:07p Confirmed 10/22/2024 at 3:59p Spoke with Dr. Gregory's office to follow-up on IV hydrocortisone dosing. Did not receive fax from last week, confirmed number of [phone]. Requested patient will need to have telephone visit at [address] Gregory to review instructions. Requested to have OV note and letter re-faxed to the above number. Will provide valve clinic fax number so Dr. Gregory's office can fax recommendations back Approved per fax. Scanned in under Media. Approval [id number] Sched on all 3 calendars and requested on [employer]. Pre TAVR phone call placed. Reviewed, procedure, instructions and meds. Pt verbalizes understanding. Pt knows to call [phone] with any concerns. Patient states she is going to last picker Lovenox today. [facility] notified to complete prep for proc Diagnosis: Aortic Stenosis Procedure being done: TAVR Date/time of procedure: 10/23/24 at 7:30 am Surgeon: Dr. Canas 2nd surgeon: Dr. Self Admission type: To be admitted Anesthesia: MAC Completed: BMP, CBC, CTA, H&P Date completed: 10/17/24 Additional orders Type and screen AM of proc Labs scanned under Media Requested lab from [facility]. She is faxing them to [facility] [employer]. Pending on [facility] using [facility] telephone visit from yesterday. Pending# [id number] Letter and Meggans chart note faxed to [phone] and confirmed PC to Dr. Gregory office. Requesting fax regarding medication recommendation sent to [phone]. Will discuss with Jo Levy. PC to dr Gregory office. Placed on hold and disconnected. Will try again later. Reviewed plan for bridging with [facility] pharmacist. Patient's CrCl is 31. She advised lovenox 40 mg BID for bridging. -patient will take last dose of Eliquis on 10/19/24 -starting on 10/20/24, patient will start lovenox 40 mg BID -she will take her last dose of lovenox morning of 10/22. -No lovenox the evening of 10/22 or morning of 10/23 Lab order faxed to [facility] [phone]/confirmed I need PB to please finish his chart note so I can submit this auth Spoke with patient, she will have labs drawn tomorrow at [facility]. Will have escrow secretary fax lab orders over Reviewed lab work with Butch Gupta APRN, will have patient hold lisinopril until after procedure. Okay to proceed with TAVR, pended case request Spoke with patient verbalized understanding of medication change. Agreed to below procedure date/time. Dx: Severe Aortic stenosis Procedure: TAVR Date/Time: 10/23/24 at 7:30 am Surgeon: Dr. Canas/ Dr. self Location: [facility] Admission[facility] Anesthesia: DEVANG Levy notified to schedule procedure and obtain insurance auth. Patient scheduled for telephone visit for H&P update and to review bridging instructions 10/16. Reviewed TAVR teach instructions while patient was on the phone. TAVR procedure, instructions reviewed with pt Patient scheduled for TAVR on 10/23/24 at 7:30 am Will report to [facility] by 5:30 am Can park in the Dr. TATTOFF Parking Deck or use [employer] parking at the [facility] entrance Plan on overnight stay in the hospital Will not be able to drive for 1 week after procedure Will receive moderate sedation through the IV, will be relaxed but awake during the procedure Nothing to eat or drink after midnight Hold all morning medications Will call with any questions/concerns Patient/family verbalized understanding. Patient is scheduled for TAVR on 10/23/24. -Reviewed bridging with [facility] pharmacist. Patient current CrCl is 24 which is too low to use lovenox. -Will need to repeat BMP and CBC and see if CrCl is 30 or higher. Labs ordered -If CrCl is greater than 30 will plan to hold Eliquis 3 days prior so her last Eliquis dose would be evening dose on 10/19/24. -Will start lovenox 80 mg BID the morning of 10/20/24. -last dose will be morning of 10/22/24 (will discuss with Dr. Canas as plan may be to give evening dose of lovenox on 10/22/24) -post TAVR, plan to resume Eliquis on 10/24/24 likely in the morning. (Will review this with Dr. Canas) Reviewed with Butch Joel APRN as patient completed renal US, plan if BMP shows stable function to proceed with TAVR. BMP results from 10/03/24 at [facility] show creatinine 1.82 with GRF 28. Will have [facility] review and place TAVR case request if appropriate documented in this encounter [facility] 10-24-2024 Nurse Note All discharge instructions gone over with pt and family. Med rec revoewed in depth. All restrictions, activity, site care and precautions gone over along with appointments. Saline lock removed. To daughters car via wheelchair, discharged home. [facility] 10-24-2024 Nurse Note All discharge instructions gone over with pt and family. Med rec revoewed in depth. All restrictions, activity, site care and precautions gone over along with appointments. Saline lock removed. To daughters car via wheelchair, discharged home. Pt had a restful night and even got up the the bathroom during the night with standby assist. Pt is up in a chair eating her Breakfast. documented in this encounter [facility] 10-24-2024 Note [facility] [address] [address] Dept: [phone] Dept Visit type: Established : 1945 Reason for Visit: Cardiac Valve Problem and Hospital Follow-up Assessment and Plan 1. Severe aortic stenosis S/p TAVR. Contiue Eliquis, SBE prophylaxis.Echo one month 2. Stage 3b chronic kidney disease (HCC) Repeat BMP 3. 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 Chronic systolic heart failure (HCC) Appears decompensated. Newly lower EF post TAVR. Will repeat renal function. ADD Toprol XL 50 mg po q hs. Hold Lisinopril for now. Lasix prn for additional weight gain 5. 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 Follow up one month, will call with lab results. Subjective Ms Peralta is an 79 yr old female known to Dr. Marte with a PMH for CAD, HPL, DVT, PE, Moris's disease, CKD s/p left nephrectomy (donated) and right partial nephrectomy (GFR 33 on 10/24/24 ), MVP, HFrEF, severe (EF 47 %, mean gradient 39 mm Hg) ; she had an admission in July for UTI after heart cath and developed extensive bilat DVTs after stopping Coumadin for 5 days, she was switched to Eliquis. Subsequently, she required diuresis for HFrEF which resulted in 15 weight loss and bump in creatinine. Ultimately, she underwent femoral TAVR with 23 mm Saoien S3 valve on 10/24/24. Post procedure echo showed EF 18%, mean ao gradient 5 mm Hg, 2+ MR, 3 + TR with possible leaflet prolapse. Today she is here for hospital follow up. Notes weight gain from baseline (140 lbs), was 160 lbs when she saw me 09/19. Notes some improvement in breathing since TAVR. + Swelling in legs and abdomen. No longer taking Lisinopril- BP has been lower Allergies[1] Current Medications[2] Medical History[3] Social History Tobacco Use Smoking status: Never Smokeless tobacco: Never Substance Use Topics Alcohol use: Never Surgical History[4] Family History[5] Objective Vitals: 10/31/24 1049 BP: 132/86 BP Location: Left arm Patient Position: Sitting BP Cuff Size: Adult Pulse: 96 SpO2: 98% Weight: 153 lb (69.4 kg) Height: 5' 2 (1.575 m) Physical Exam Constitutional: Appearance: Normal appearance. HENT: Head: Normocephalic and atraumatic. Nose: Nose normal. Eyes: Conjunctiva/sclera: Conjunctivae normal. Pupils: Pupils are equal, round, and reactive to light. Neck: Comments: + JVD Cardiovascular: Rate and Rhythm: Normal rate and regular rhythm. Pulmonary: Effort: Pulmonary effort is normal. Breath sounds: Normal breath sounds. Abdominal: General: Bowel sounds are normal. Palpations: Abdomen is soft. Musculoskeletal: General: Normal range of motion. Cervical back: Normal range of motion and neck supple. Right lower leg: Edema present. Left lower leg: Edema present. Skin: General: Skin is warm and dry. Neurological: General: No focal deficit present. Mental Status: She is alert and oriented to person, place, and time. Psychiatric: Mood and Affect: Mood normal. Thought Content: Thought content normal. Data Reviewed and Summarized EF BP Date Value Ref Range Status 10/24/2024 18 (A) 55 - 100 % Final Review of tests/labs done/ordered within my specialty: EKG in office: not done Review of tests/labs done/ordered outside my specialty: Independent interpretation of tests: Basim Joel, [facility] - [employer]WAYS CONTR[employer] SPECIALIST [1] Allergies Allergen Reactions Amlodipine Swelling Ciprofloxacin Other and Rash rash with 500mg dose Penicillins Other and Rash rash [2] Current Outpatient Medications: acetaminophen (Tylenol) 325 MG tablet, Take 650 mg by mouth every 6 hours as needed., Disp: , Rfl: apixaban (Eliquis) 5 MG tablet, Take 5 mg by mouth 2 times daily., Disp: , Rfl: ascorbic acid (Vitamin C) 1000 MG tablet, Take 1,000 mg by mouth Nightly., Disp: , Rfl: denosumab (Prolia) 60 MG/ML solution prefilled syringe, Inject 60 mg under the skin every 6 (six) months., Disp: , Rfl: hydrocortisone (Cortef) 10 MG tablet, Take 1 tablet (10 mg) by mouth 3 times daily., Disp: , Rfl: lisinopril 5 MG tablet, Take 5 mg by mouth daily., Disp: , Rfl: methenamine hippurate (Hiprex) 1 g tablet, Take 1 g by mouth Nightly., Disp: , Rfl: metoprolol succinate XL (Toprol-XL) 50 MG 24 hr tablet, Take 1 tablet (50 mg) by mouth daily. Do not crush or chew., Disp: 30 tablet, Rfl: 11 nitroglycerin (Nitrostat) 0.4 MG SL tablet, TAKE 1 TABLET BY MOUTH EVERY 5-15 MINUTES NEEDED for cardiac or chest pain, Disp: , Rfl: simvastatin (Zocor) 20 MG tablet, Take 20 mg by mouth Nightly., Disp: , Rfl: [3] Past Medical History: Diagnosis Date Plumas anemia 2010 [4] Past Surgical History: Procedure Laterality Date BLADDER REPAIR CARDIAC CATHETERIZATION N/A 10/23/2024 Performed by Memo Canas MD at [facility] OR CYSTECTOMY (HISTORICAL) LAPAROSCOPIC NEPHRECTOMY (HISTORICAL) Left TOTAL ABDOMINAL HYSTERECTOMY [5] Family History Problem Relation Name (more content not included)... [facility] 10-24-2024 Note Attestation signed by Memo Canas MD at 11/02/2024 7:47 AM I, Dr. Canas, saw and evaluated the patient on 10/24/2024. I personally obtained the kelly and critical portions of the history and physical exam. I reviewed the chart and discussed the patient with the Nurse Practitioner. I agree with the Nurse Practitioner's medical decision making. Hospital Summary: Patient was admitted for elective transcatheter aortic valve replacement. she did well with this procedure. she is now POD1 s/p TF TAVR. she is back to her baseline activity with no symptoms. she will be discharged today on her current medication list. she will follow up in valve clinic in 1-2 weeks. Name: Linda Peralta Date of : 1945 Date of Admission: 10/23/2024 Date of Discharge: 10/24/2024 Admitting physician: Memo Canas MD Discharge Attending: LIDIA Bryson CNP Primary Care Physician: Amos Floyd Reason for Admission: Severe Symptomatic Aortic Stenosis Consultants: Cardiac Rehab HOSPITAL ADMISSION PROBLEM LIST: Problem List[1] Review of Systems Review of Systems Constitutional: Negative for chills and fever. Respiratory: Negative for cough and shortness of breath. Cardiovascular: Negative for chest pain, palpitations and leg swelling. Gastrointestinal: Negative for abdominal pain, blood in stool and vomiting. Genitourinary: Negative for hematuria. Neurological: Negative for dizziness and syncope. Physical Exam Physical Exam Constitutional: Appearance: Normal appearance. HENT: Head: Normocephalic. Eyes: General: No scleral icterus. Right eye: No discharge. Left eye: No discharge. Cardiovascular: Rate and Rhythm: Normal rate and regular rhythm. Pulses: Normal pulses. Radial pulses are 2+ on the right side. Dorsalis pedis pulses are 2+ on the right side and 2+ on the left side. Posterior tibial pulses are 2+ on the right side and 2+ on the left side. Heart sounds: Normal heart sounds. No murmur heard. Comments: R radial cath site without hematoma, ecchymosis or oozing. R hand with brisk capillary refill R femoral cath site without hematoma, ecchymosis, oozing or bruit R IJ site without hematoma, oozing or ecchymosis Pulmonary: Effort: Pulmonary effort is normal. Breath sounds: Normal breath sounds. Abdominal: General: Abdomen is flat. There is distension (mild). Palpations: Abdomen is soft. Musculoskeletal: General: Normal range of motion. Cervical back: Normal range of motion. Right lower leg: Edema (trace) present. Left lower leg: Edema (trace) present. Skin: General: Skin is warm and dry. Capillary Refill: Capillary refill takes less than 2 seconds. Neurological: Mental Status: She is alert and oriented to person, place, and time. Psychiatric: Mood and Affect: Mood normal. Procedures: Transfemoral transcatheter AVR with 23 mm Phong S3 valve under moderate sedation Transthoracic echocardiogram HOSPITAL COURSE : The patient was admitted to the hospital for elective TAVR on 10/23/24 . A 23 Phong S3 valve was implanted. The patient returned to [facility] for recovery. Vital signs and labs were stable. There were no groin complications. The patient was ambulatory the evening of the procedure. On day of discharge she reports feeling well with no SOB, orthopnea, angina. Minimal LE edema. Mild abdominal bloating. Weight at discharge 146 lbs. Post procedure echocardiogram demonstrated : 10/23/24 Left Ventricle: Left ventricle size is normal. Normal wall thickness. Severely reduced left ventricular systolic function. The EF by visual approximation is 20%. Severe global hypokinesis present. Right Ventricle: Right ventricle size is normal. Pacemaker lead present in the right ventricle. Normal systolic function. Aortic Valve: s/p Sanchez Phong 3 Ultra bioprosthetic aortic valve that is well-seated with a size of 23mm mm. AV mean gradient is 3 mmHg. No regurgitation. No stenosis. Normal prosthetic gradient. AV mean gradient is 3 mmHg. Mitral Valve: Moderately severe (3+) regurgitation. Tricuspid Valve: Mildly thickened leaflets. Moderately severe (3+) regurgitation. No stenosis noted. Moderate leaflet prolapse of the anterior leaflet. Moderately elevated RVSP. RVSP is 50 mmHg. Complete echo to follow. Patient education including SBE prophylaxis, activity, access site care, follow up appointments, and medications was provided. The patient verbalized understanding, questions were answered. The patient was discharged home in good condition. Referral to cardiac rehabilitation has been recommended and discussed with the patient prior to discharge. Referral has been made to the [facility]iac [facility] Program. (more content not included)... [facility] 10-24-2024 Hospital Discharge instructions Dylon Gupta APRN - AIRWAYS CONTROL SPECIALIST - 10/24/2024 8:35 AM EDT - Please call the Heart Valve Clinic with any questions: [phone] -You will have have the following follow up appointments in the Heart Valve Clinic: one week post procedure, one month post procedure with echocardiogram, one year post procedure with echocardiogram. -Wash groin/wrist incision with soap and water, pat dry. Apply bandage for 5 days. If you have a chest incision, you will receive specific instructions from your surgeon regarding care of the incision. -Check incision every day. If you see any changes in the way it looks, call the Heart Valve Clinic at . Look for any of these problems: redness and warmth that does not go away, yellow or green drainage from the wound, fever and chills, numbness in your legs, pain that is getting worse. -It is normal to have a bruise or soft lump in the groin. This will get smaller and go away with time -Do not drive until after your first Heart Valve Clinic Appointment. -Do not lift, push, or pull anything weighing more than 5 lbs or more for one week if you had the procedure through your groin and 4 weeks if you had the procedure through the chest -We strongly encourage a regular exercise program such as cardiac rehabilitation once you have been cleared to resume normal activity. -Eating well is important for your recovery. Eat nutritious foods every day. Please follow a cardiac, 2 gram sodium diet. Please continue to follow any other dietary recommendations provided by your health care provider prior to your valve surgery. -From now on, tell your doctors and health care providers about your heart valve implantation (prosthetic heart valve ). -If you go to the emergency room or are admitted to the hospital during the first year after your procedure, please call the Heart Valve Clinic at -If you have major dental work or other invasive medical procedures (like surgery) you may need to take antibiotics before the dental work or the procedure. Please discuss with your health care provider. - You will need to take blood thinning medications (antiplatelet) after your valve procedure. Generally, this includes aspirin alone, unless you take blood thinning medications for another indication (warfarin, apixaban, rivaroxaban). If you take blood thinning medications, these are generally sufficient and aspirin will not be required unless otherwise specified. documented in this encounter [facility] 10-24-2024 History of Present illness Narrative Images from the original note were not included. PHYSICAL THERAPY [facility] Name/MRN: Linda Peralta ([id number]) Date: 10/24/2024 PT orders received per Oniel activity/mobility score. Patient currently with Oniel activity/mobility score greater than 2. Per therapy services guidelines, will discharge PT orders. Please place regular PT eval/treat orders if deemed appropriate. Shea Perez PT documented in this encounter [facility] 10-24-2024 Nurse Note Pt had a restful night and even got up the the bathroom during the night with standby assist. Pt is up in a chair eating her Breakfast. 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 Unable to discuss Phase II Cardiopulmonary Rehab Referral with Linda Peralta at this time. Will follow to discuss program when appropriate. Patient will be contacted at home if discharged prior to discussion. [id number] NoteReceived referral and reviewed chart. Unable to discuss Phase II Cardiopulmonary Rehab Referral with Linda Peralta at this time. Will follow to discuss program when appropriate. Patient will be contacted at home if discharged prior to discussion. [facility]09-03-2025 Consult note* Juan Alberto Tena - 10/23/2024 12:25 PM EDT Associated Order(s): IP CONSULT TO CARDIAC REHAB Received referral and reviewed chart. Unable to discuss Phase II Cardiopulmonary Rehab Referral with Linda Peralta at this time. Will follow to discuss program when appropriate. Patient will be contacted at home if discharged prior to discussion. documented in this [facility]09-03-2025 NotePatient: Linda Peralta Procedure Summary Date: 10/23/24 Room / Location: [facility] Operating Room Anesthesia Start: 733 Anesthesia Stop: 931 Procedures: TRANSCATHETER AORTIC VALVE REPLACEMENT, TRANSTHORACIC ECHOCARDIOGRAM TRANSCATHETER AORTIC VALVE REPLACEMENT, TRANSTHORACIC ECHOCARDIOGRAM (Chest) Diagnosis: Severe aortic stenosis Surgeons: Memo Canas MD; William Self DO Responsible Provider: LIDIA Smith CRNA Anesthesia Type: TIVA ASA Status: 3 Anesthesia Type: TIVA Vitals Value Taken Time BP 109/91 10/23/24 09:36 Temp 36.1 ?C (97 ?F) 10/23/24 09:36 Pulse 96 10/23/24 09:37 Resp 19 10/23/24 09:37 SpO2 99 % 10/23/24 09:37 Vitals shown include unfiled device data. Anesthesia Post Evaluation Patient location during evaluation: ICU Patient participation: complete - patient participated Level of consciousness: awake Pain management: adequate Airway patency: patent Dental Injury: no Cardiovascular status: acceptable and hemodynamically stable Respiratory status: acceptable, ETT, intubated and ventilator Hydration status: acceptable Nausea/Vomiting: controlled There were no known notable events for this encounter. Patient can be discharged once all PACU criteria has been met.[facility] [id number] NotePatient: Linda Peralta Procedure Summary Date: 10/23/24 Room / Location: [facility] Operating Room Anesthesia Start: 733 Anesthesia Stop: 931 Procedures: TRANSCATHETER AORTIC VALVE REPLACEMENT, TRANSTHORACIC ECHOCARDIOGRAM TRANSCATHETER AORTIC VALVE REPLACEMENT, TRANSTHORACIC ECHOCARDIOGRAM (Chest) Diagnosis: Severe aortic stenosis Surgeons: Memo Canas MD; William Self DO Responsible Provider: LIDIA Smith CRNA Anesthesia Type: TIVA ASA Status: 3 Anesthesia Type: TIVA Vitals Value Taken Time BP 109/91 10/23/24 09:36 Temp 36.1 ?C (97 ?F) 10/23/24 09:36 Pulse 97 10/23/24 09:36 Resp 19 10/23/24 09:36 SpO2 99 % 10/23/24 09:36 Vitals shown include unfiled device data. Anesthesia Post Evaluation Patient participation: complete - patient participated Level of consciousness: awake Pain management: adequate Airway patency: patent Two or more strategies used to mitigate risk of obstructive sleep apnea Cardiovascular status: hemodynamically stable Hydration status: WDL Comments: Sedated/intubated There were no known notable events for this encounter. MIPS #430 PONV Patient did not receive an inhalational anesthetic (XX430) MIPS # 424 Perioperative Temperature Management Anesthesia time was 60 minutes or longer (4255F) Anesthesai administered was General (inhalational or TIVA) or Neuraxial block (X0424) At least one body temperature greater than 95.8F/35.5C achieved within the 30 mins immediately prior to or the 15 minutes immediately following anesthesia end time (G9771) MIPS #477 Multimodal Pain Management Not emergent case Patient was administered multimodal pain management (two or more drugs and/or interventions excluding systemic opioids) in the periopeartive period occurring at some time between 6 hours prior to anesthesia start time until discharged from PACU (G2148) MIPS #404 Anesthesiology Smoking Abstinence The patient is not a current smoker (e.g. cigarette, cigar, pipe, e-cigarette/vaping/marijuana) If no stop here (XX404) I completed my handoff to the receiving clinician during which we: 1. Identified the patient 2. Identified the responsible provider 3. Reviewed the pertinent medical history 4. Discussed the surgical course 5. Reviewed intra-op anesthesia management and issues during anesthesia 6. Set expectations for post-procedure period 7. Allowed opportunity for questions and acknowledgement of understanding.[facility]09-03-2025 NoteArterial Line: Date/Time: 10/23/2024 8:35 AM An arterial line was placed in the Procedural for the following indication(s): continuous blood pressure monitoring and blood sampling needed. The procedure was performed using ultrasound guidance . A 20 gauge (size), 1 and 3/4 inch (length), Arrow (type) catheter was placed, into the Right radial artery, secured by Tegaderm and tape. Events: patient tolerated procedure well with no complications. Staffing Performed: Other Other staff: Memo Canas, [facility]09-03-2025 NoteH&P reviewed. The patient was examined and there are no changes to the H&P.[facility]09-03-2025 NoteH&P reviewed. The patient was examined and there are no changes to the H&P.[facility]09-03-2025 Procedure note* Op Note - William Self DO - 10/23/2024 7:34 AM EDT CARDIOTHORACIC SURGERY--OPERATIVE NOTE Date: 10/23/24 Preoperative diagnosis: Severe symptomatic aortic stenosis Chronic diastolic congestive heart failure Frailty Postoperative diagnosis: Severe symptomatic aortic stenosis Chronic diastolic congestive heart failure Frailty Surgeon: Rocky Self DO Capsule Inspector: Memo Canas MD Procedure: Transcatheter aortic valve replacement with 23 mm PHONG S3 valve Transthoracic echocardiogram Complications: None Anesthesia: Local with conscious sedation Indications for procedure: The patient is a 79 year-old female with severe, symptomatic aortic valve stenosis. The case was reviewed in the valve clinic in the valve conference and the patient was deemed a candidate for TAVR. Procedure in detail: The patient was positioned supine on the operating room table. The patient was prepped and draped in usual sterile fashion. Vascular access was gained in the right common femoral artery, right radialartery and right internal jugular vein. Systemic heparin 100 mg/kg was given. Please refer to the cardiology dictation for placement of wires and sheaths. Temporary ventricular pacing wire was placed into the right ventricle using fluoroscopic guidance. After determination of the deployment angle the expandable sheath was placed through the right femoral artery. The aortic valve was then crossed using a straight wire. This wire was exchanged for an Amplatz Extra Stiff wire for placement of the prosthesis. The valve was introduced over the wire through the E sheath into the descending thoracicaorta where it was mounted on the balloon. This was then passed across the aortic arch and the aortic valve annulus. The valve was deployed under rapid ventricular pacing. It appeared to be well seated. Echocardiogram confirmed good position, no paravalvular leak, and appropriate gradients. The deployment device was removed. Protamine was then given to reverse the systemic effects of heparin and the patient was subsequently decannulated and transferred stable to the recovery room. She toleratedthe procedure well. Disposition: Stable to ICU Rocky Self DO [facility] Cardiothoracic Surgery [employer] Phone: [phone] Miscellaneous Notes* Op Note - William Self DO - 10/23/2024 7:34 AM EDT CARDIOTHORACIC SURGERY--OPERATIVE NOTE Date: 10/23/24 Preoperative diagnosis: Severe symptomatic aortic stenosis Chronic diastolic congestive heart failure Frailty Postoperative diagnosis: Severe symptomatic aortic stenosis Chronic diastolic congestive heart failure Frailty Surgeon: Rocky Self DO Capsule Inspector: Memo Canas MD Procedure: Transcatheter aortic valve replacement with 23 mm PHONG S3 valve Transthoracic echocardiogram Complications: None Anesthesia: Local with conscious sedation Indications for procedure: The patient is a 79 year-old female with severe, symptomatic aortic valve stenosis. The case was reviewed in the valve clinic in the valve conference and the patient was deemed a candidate for TAVR. Procedure in detail: The patient was positioned supine on the operating room table. The patient was prepped and draped in usual sterile fashion. Vascular access was gained in the right common femoral artery, right radialartery and right internal jugular vein. Systemic heparin 100 mg/kg was given. Please refer to the cardiology dictation for placement of wires and sheaths. Temporary ventricular pacing wire was placed into the right ventricle using fluoroscopic guidance. After determination of the deployment angle the expandable sheath was placed through the right femoral artery. The aortic valve was then crossed using a straight wire. This wire was exchanged for an Amplatz Extra Stiff wire for placement of the prosthesis. The valve was introduced over the wire through the E sheath into the descending thoracicaorta where it was mounted on the balloon. This was then passed across the aortic arch and the aortic valve annulus. The valve was deployed under rapid ventricular pacing. It appeared to be well seated. Echocardiogram confirmed good position, no paravalvular leak, and appropriate gradients. The deployment device was removed. Protamine was then given to reverse the systemic effects of heparin and the patient was subsequently decannulated and transferred stable to the recovery room. She toleratedthe procedure well. Disposition: Stable to ICU Rocky Self DO [facility] Cardiothoracic Surgery * Pre-Procedure Note - Jacinda Jackman RN - 10/23/2024 7:[address] Canas contacted about pre-procedure steroid not ordered. No new orders at this time for 0730 case. * Pre-Procedure Note - Jacinda Jackman RN - 10/23/2024 6:21 AM EDT X-ray to bedside * Pre-Procedure Note - Jacinda Jackman RN - 10/23/2024 6:03 AM EDT Called for chest X-RAY documented in this [facility]09-03-2025 Evaluation note* Pre- Procedure Note - Jacinda Jackman RN - 10/23/2024 7:[address] Canas contacted about pre-procedure steroid not ordered. No new orders at this time for 0730 case. [id number] note* Pre-Procedure Note - Jacinda Jackman RN - 10/23/2024 6:21 AM EDT X-ray to bedside [id number] Evaluation note* Pre-Procedure Note - Jacinda Jackman RN - 10/23/2024 6:03 AM EDT Called for chest X-RAY [place] [id number] NotePatient: Linda Peralta Procedure Information Date/Time: 10/23/24 0730 Procedures: TRANSCATHETER AORTIC VALVE REPLACEMENT, TRANSTHORACIC ECHOCARDIOGRAM TRANSCATHETER AORTIC VALVE REPLACEMENT, TRANSTHORACIC ECHOCARDIOGRAM (Chest) Location: [facility] Operating Room Surgeons: Memo Canas MD; William Self, Relevant Problems Cardio (+) ASHD (arteriosclerotic heart disease) (+) Acute embolism and thrombosis of unspecified deep veins of unspecified lower extremity (HCC) (+) Angina concurrent with and due to arteriosclerosis of coronary artery (HCC) (+) Aortic valve stenosis (+) Coronary arteriosclerosis (+) DVT (deep venous thrombosis) (HCC) (+) Hyperlipidemia (+) Primary hypertension (+) Pure hypercholesterolemia (+) Severe aortic stenosis /Renal (+) Acute kidney injury (HCC) (+) Acute pyelonephritis (+) CKD (chronic kidney disease) (+) Primary malignant neoplasm of kidney (HCC) (+) Renal insufficiency Pulmonary (+) Asthma Cardiovascular (+) DVT (deep venous thrombosis) (HCC) Other (+) Primary malignant neoplasm of kidney (HCC) Past Medical History: Past Medical History: 2011: Plumas anemia Past Surgical History: Past Surgical History: No date: BLADDER REPAIR No date: HX CYSTECTOMY (HISTORICAL) No date: LAPAROSCOPIC NEPHRECTOMY (HISTORICAL); Left No date: TOTAL ABDOMINAL HYSTERECTOMY Social History: TOBACCO: reports that she has never smoked. She has never used smokeless tobacco. ETOH: reports no history of alcohol use. Social History Substance and Sexual Activity Drug Use Never Comment: 1 cup of coffee daily Family History: Family History[1] Screening: unknown Clinical information reviewed: Physical Exam Airway Mallampati: II TM distance: >3 FB Neck ROM: full Cardiovascular Dental Pulmonary Abdominal Anesthesia Plan Any family history or previous problems with anesthesia no We discussed risks, benefits, alternatives and likelihood of success with the Patient. ASA 3 TIVA Any family history or previous problems with anesthesia no The patient is not a current smoker. Patient did not smoke on day of procedure. patient is NPO appropriate ERAS Type 10/22/24 Chart reviewed. DOS orders for anesthesia placed according to ERAS protocol. Tavr, no eras Tavr checklist complete Labs and cath under media Goldie Rojas APRN - AIRWAYS CONTROL SPECIALIST [facility] Screening Labs: No results found for: WBC, HGB, HCT, MCV, PLT No results found for: SODIUM, NA, POTASSIUM, K, CHLORIDE, CL, CO2, BUN, CREATININE, GLUCOSE, CALCIUM, PROT, BILIRUBINFL, ALKPHOS, AST, ALT, EGFR, GLOB No echocardiogram results found for the past 14 days 07/31/25 ECG 12-LEAD 09/29/2024 8:05 AM (Final) Narrative Sinus Rhythm -Left atrial enlargement. -Diffuse nonspecific T-abnormality. ABNORMAL Signed by: Memo Canas MD on 09/29/2024 8:05 AM Equipment Requests: Additional Equipment Requests [1] Family History Problem Relation Name Age of Onset Heart attack Mother Stroke [facility]09-02-2025 Telephone encounter Note* Telephone Encounter - Jewels Levy - 10/22/2024 2:51 PM EDT Letter refaxed to [phone] along w/ Kishore chart note. Confirmation 10/16/24 at 3:07p Confirmed 10/22/2024 at 3:59p [id number] Telephone encounter Note* Telephone Encounter - Desirae Martinez RN - 10/22/2024 10:39 AM EDT Spoke with Dr. Gregory's office to follow-up on IV hydrocortisone dosing. Did not receive fax from last week, confirmed number of [phone]. Requested patient will need to have telephone visit at [address] Gregory to review instructions. Requested to have OV note and letter re-faxed to the above number. Will provide valve clinic fax number so Dr. Gregory's office can fax recommendations back [place] [id number] Telephone encounter Note* Telephone Encounter - Jewels Levy - 10/22/2024 9:42 AM EDT Approved per fax. Scanned in under Media. Approval [id number] Sched on all 3 calendars and requested on [employer]. [place] [id number] History and physical note* Dylon Gupta APRN - AIRWAYS CONTROL SPECIALIST - 10/22/2024 8:32 AM EDT H+ P copied to chart from (office provider's name Dylon Gupta APRN) progress note dated 10/16/24 onbehalf of (procedural physician's name Dr. Canas). [facility] Telehealth Cardiology Note DATE of SERVICE: 10/16/24 TIME of SERVICE: 12:45 PM Chief Complaint: Chief Complaint Patient presents with Follow-up History of Present Illness: Linda Peralta is a 79 y.o. female known to Dr. 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 She was switched to Eliquis 5 mg po bid and remains on that now. She was seen in valve clinic on 09/03 for aortic stenosis. Echo from 07/14 shows EF 47% with a mean gradient of 39 mm Hg. She reported dyspnea with moderate activity. No CAD per [facility]. Weight 156 lbs. Last clinic visit Telehealth visit completed today with patient and daughter. She reports slightly more SOB and more abdominal bloating. Denies angina, PND or LE edema. Weight 151 lbs today. She recently had 3 day course of lasix 40 mg once a day. She states she lost 15 lbs after 3 doses of lasix. Participants on telehealth call: Linda Peralta Daughter Souleymane Past Medical History: [Medical History] [Medical History] Past Medical History Diagnosis Date Plumas anemia 2010 Past Surgical History [Surgical History] [Surgical History] Past Surgical History Procedure Laterality Date BLADDER REPAIR HX CYSTECTOMY (HISTORICAL) LAPAROSCOPIC NEPHRECTOMY (HISTORICAL) Left TOTAL ABDOMINAL HYSTERECTOMY Family History [Family History] [Family History] Problem Relation Name Age of Onset Heart attack Mother Stroke Father Social History [Social History] [Social History] Tobacco Use Smoking status: Never Smokeless tobacco: Never Vaping Use Vaping status: Never Used Substance Use Topics Alcohol use: Never Drug use: Never Comment: 1 cup of coffee daily Allergies: [Allergies] [Allergies] Allergen Reactions Amlodipine Swelling Ciprofloxacin Other and Rash rash with 500mg dose Penicillins Other and Rash rash Medications: [Current Medications] [Current Medications] Current Outpatient Medications: acetaminophen (Tylenol) 325 MG tablet, Take 650 mg by mouth every 6 hours as needed., Disp: , Rfl: apixaban (Eliquis) 5 MG tablet, Take 5 mg by mouth 2 times daily., Disp: , Rfl: ascorbic acid (Vitamin C) 1000 MG tablet, Take 1,000 mg by mouth Nightly., Disp: , Rfl: denosumab (Prolia) 60 MG/ML solution prefilled syringe, Inject 60 mg under the skin every 6 (six) months., Disp: , Rfl: furosemide (Lasix) 40 MG tablet, Take 1 tablet (40 mg) by mouth daily. Take one pill daily for three days and then stop, Disp: 30 tablet, Rfl: 0 hydrocortisone (Cortef) 10 MG tablet, TAKE 2 TABLETS BY MOUTH IN THE MORNING AND TAKE 1 TABLET AT 1IN THE EVENING, Disp: , Rfl: lisinopril 5 MG tablet, Take 5 mg by mouth daily., Disp: , Rfl: methenamine hippurate (Hiprex) 1 g tablet, Take 1 g by mouth Nightly., Disp: , Rfl: nitroglycerin (Nitrostat) 0.4 MG SL tablet, TAKE 1 TABLET BY MOUTH EVERY 5-15 MINUTES NEEDED forcardiac or chest pain, Disp: , Rfl: simvastatin (Zocor) 20 MG tablet, Take 20 mg by mouth Nightly., Disp: , Rfl: warfarin (Coumadin) 2.5 MG tablet, TAKE 1 TABLET BY MOUTH DAILY AT 5PM (Patient not taking: Reported on 09/03/2024), Disp: , Rfl: Review of Systems: Review of Systems Constitutional: Negative for chills and fever. Respiratory: Positive for shortness of breath. Negative for cough. Cardiovascular: Positive for leg swelling. Negative for chest pain and palpitations. Gastrointestinal: Positive for abdominal distention. Negative for abdominal pain, blood in stool and vomiting. Genitourinary: Negative for difficulty urinating and hematuria. Neurological: Negative for dizziness and syncope. Vital Signs (self reported) 120/58 Failed to redirect to the Timeline version of the [facility] SmartLink. Limited Telehealth exam Constitutional: [x]Alert [x]Oriented Appearance: []Healthy []Chronically ill []Acutely ill []Disheveled [x]NA (audio only) Medical Insight: [x]Good []Adequate []Limited []Poor Laboratory Tests: No results found for: WBC, HGB, HCT, MCV, PLT No results found for: GLUCOSE, CALCIUM, NA, K, CO2, CL, BUN, CREATININE @LASTCMP@ No results found for: CHLPL, CHOL No results found for: TRIG No results found for: HDL No results found for: LDLCALC Recent labs under Media tab Cardiac Tests: ECG: SR Assessment and Plan: @DIAGREFRESH@ 1. Severe aortic stenosis (Primary) Reviewed pre procedure instructions for TAVR scheduled 10/23/24. All questions answered. She is agreeable to plan. 2. Stage 3 chronic kidney disease, unspecified whether stage 3a or 3b CKD (HCC) CKD followed by zinc plater Dr. Tarango in [place]. Most recent BMP showed SCr 1.61 with CrCl 31. 3. Acute deep vein thrombosis (DVT) of right lower extremity, unspecified vein (HCC) Questionable IVC filter. Currently on Eliquis. Per daughter, LE edema has improved. Post TAVR, willrefer patient to Dr. Gaffney-vascular. We reached out to [facility] for recommendations on bridging. Will stop Eliquis after evening doseon 10/19/24. Starting on 10/20/24, will start lovenox 40 mg SQ BID. She will take her last dose of Lovenox on the morning of 10/22/24. No lovenox dose the evening of 10/22/24. TAVR scheduled for 10/23/24. Will determine plan to resume Eliquis/Lovenox post TAVR. Patient and daughter verbalized understanding. 4. Acute systolic heart failure (HCC) Weight slightly increased with worsening abdominal bloating. Advised lasix 20 mg once a day for 2 days only. 5. Moris's disease (HCC) Patient is currently taking hydrocortisone (Cortef) 10 mg TID. Will reach out to enterprise application analyst Dr. Gregory in [place] ([phone]). for recommendations on IV hydrocortisone prior to TAVR. Patient was seen today via Telehealth by agreement and consent. I used the following Telehealth technology: Audio capability only. Total length of call 28 minutes. The patient was offered and advisedvideo for a more comprehensive evaluation, but the patient declined or was unable to use video. This patient encounter is appropriate and reasonable under the circumstances given the patient's particular presentation at this time. The patient has been advised of the potential risks and limitations of this mode of treatment (including but not limited to the absence of in-person examination) and has agreed to be treated in a remote fashion in spite of them. Any and all of the patient's/patient's f amily's questions on this issue have been answered and I have made no promises or guarantees to thepatient. The patient has also been advised to contact this office for worsening conditions or problems, and seek emergency medical treatment and/or call 911 if the patient deems either necessary. Patient's telehealth visit with patient and provider is done in the [facility] from the [facility] supported by [facility]. Cosigned by Memo Canas MD at 11/01/2024 9:49 PM EDT [id number] History and physical note* Dylon Gupta APRN - TELLY - 10/22/2024 8:32 AM EDT H+ P copied to chart from (office provider's name Dylon Gupta APRN) progress note dated 10/16/24 onbehalf of (procedural physician's name Dr. Canas). [facility] Telehealth Cardiology Note DATE of SERVICE: 10/16/24 TIME of SERVICE: 12:45 PM Chief Complaint: Chief Complaint Patient presents with Follow-up History of Present Illness: Linda Peralta is a 79 y.o. female known to Dr. 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 She was switched to Eliquis 5 mg po bid and remains on that now. She was seen in valve clinic on 09/03 for aortic stenosis. Echo from 07/14 shows EF 47% with a mean gradient of 39 mm Hg. She reported dyspnea with moderate activity. No CAD per [facility]. Weight 156 lbs. Last clinic visit Telehealth visit completed today with patient and daughter. She reports slightly more SOB and more abdominal bloating. Denies angina, PND or LE edema. Weight 151 lbs today. She recently had 3 day course of lasix 40 mg once a day. She states she lost 15 lbs after 3 doses of lasix. Participants on telehealth call: Linda Peralta Daughter Souleymane Past Medical History: [Medical History] [Medical History] Past Medical History Diagnosis Date Moris anemia 2010 Past Surgical History [Surgical History] [Surgical History] Past Surgical History Procedure Laterality Date BLADDER REPAIR HX CYSTECTOMY (HISTORICAL) LAPAROSCOPIC NEPHRECTOMY (HISTORICAL) Left TOTAL ABDOMINAL HYSTERECTOMY Family History [Family History] [Family History] Problem Relation Name Age of Onset Heart attack Mother Stroke Father Social History [Social History] [Social History] Tobacco Use Smoking status: Never Smokeless tobacco: Never Vaping Use Vaping status: Never Used Substance Use Topics Alcohol use: Never Drug use: Never Comment: 1 cup of coffee daily Allergies: [Allergies] [Allergies] Allergen Reactions Amlodipine Swelling Ciprofloxacin Other and Rash rash with 500mg dose Penicillins Other and Rash rash Medications: [Current Medications] [Current Medications] Current Outpatient Medications: acetaminophen (Tylenol) 325 MG tablet, Take 650 mg by mouth every 6 hours as needed., Disp: , Rfl: apixaban (Eliquis) 5 MG tablet, Take 5 mg by mouth 2 times daily., Disp: , Rfl: ascorbic acid (Vitamin C) 1000 MG tablet, Take 1,000 mg by mouth Nightly., Disp: , Rfl: denosumab (Prolia) 60 MG/ML solution prefilled syringe, Inject 60 mg under the skin every 6 (six) months., Disp: , Rfl: furosemide (Lasix) 40 MG tablet, Take 1 tablet (40 mg) by mouth daily. Take one pill daily for three days and then stop, Disp: 30 tablet, Rfl: 0 hydrocortisone (Cortef) 10 MG tablet, TAKE 2 TABLETS BY MOUTH IN THE MORNING AND TAKE 1 TABLET AT 1IN THE EVENING, Disp: , Rfl: lisinopril 5 MG tablet, Take 5 mg by mouth daily., Disp: , Rfl: methenamine hippurate (Hiprex) 1 g tablet, Take 1 g by mouth Nightly., Disp: , Rfl: nitroglycerin (Nitrostat) 0.4 MG SL tablet, TAKE 1 TABLET BY MOUTH EVERY 5-15 MINUTES NEEDED forcardiac or chest pain, Disp: , Rfl: simvastatin (Zocor) 20 MG tablet, Take 20 mg by mouth Nightly., Disp: , Rfl: warfarin (Coumadin) 2.5 MG tablet, TAKE 1 TABLET BY MOUTH DAILY AT 5PM (Patient not taking: Reported on 09/03/2024), Disp: , Rfl: Review of Systems: Review of Systems Constitutional: Negative for chills and fever. Respiratory: Positive for shortness of breath. Negative for cough. Cardiovascular: Positive for leg swelling. Negative for chest pain and palpitations. Gastrointestinal: Positive for abdominal distention. Negative for abdominal pain, blood in stool and vomiting. Genitourinary: Negative for difficulty urinating and hematuria. Neurological: Negative for dizziness and syncope. Vital Signs (self reported) 120/58 Failed to redirect to the Timeline version of the [facility] SmartLink. Limited Telehealth exam Constitutional: [x]Alert [x]Oriented Appearance: []Healthy []Chronically ill []Acutely ill []Disheveled [x]NA (audio only) Medical Insight: [x]Good []Adequate []Limited []Poor Laboratory Tests: No results found for: WBC, HGB, HCT, MCV, PLT No results found for: GLUCOSE, CALCIUM, NA, K, CO2, CL, BUN, CREATININE @LASTCMP@ No results found for: CHLPL, CHOL No results found for: TRIG No results found for: HDL No results found for: LDLCALC Recent labs under Media tab Cardiac Tests: ECG: SR Assessment and Plan: @DIAGREFRESH@ 1. Severe aortic stenosis (Primary) Reviewed pre procedure instructions for TAVR scheduled 10/23/24. All questions answered. She is agreeable to plan. 2. Stage 3 chronic kidney disease, unspecified whether stage 3a or 3b CKD (HCC) CKD followed by zinc plater Dr. Tarango in [place]. Most recent BMP showed SCr 1.61 with CrCl 31. 3. Acute deep vein thrombosis (DVT) of right lower extremity, unspecified vein (HCC) Questionable IVC filter. Currently on Eliquis. Per daughter, LE edema has improved. Post TAVR, willrefer patient to Dr. Gaffney-vascular. We reached out to [facility] for recommendations on bridging. Will stop Eliquis after evening doseon 10/19/24. Starting on 10/20/24, will start lovenox 40 mg SQ BID. She will take her last dose of Lovenox on the morning of 10/22/24. No lovenox dose the evening of 10/22/24. TAVR scheduled for 10/23/24. Will determine plan to resume Eliquis/Lovenox post TAVR. Patient and daughter verbalized understanding. 4. Acute systolic heart failure (HCC) Weight slightly increased with worsening abdominal bloating. Advised lasix 20 mg once a day for 2 days only. 5. Plumas's disease (HCC) Patient is currently taking hydrocortisone (Cortef) 10 mg TID. Will reach out to enterprise application analyst Dr. Gregory in [place] ([phone]). for recommendations on IV hydrocortisone prior to TAVR. Patient was seen today via Telehealth by agreement and consent. I used the following Telehealth technology: Audio capability only. Total length of call 28 minutes. The patient was offered and advisedvideo for a more comprehensive evaluation, but the patient declined or was unable to use video. This patient encounter is appropriate and reasonable under the circumstances given the patient's particular presentation at this time. The patient has been advised of the potential risks and limitations of this mode of treatment (including but not limited to the absence of in-person examination) and has agreed to be treated in a remote fashion in spite of them. Any and all of the patient's/patient's f amily's questions on this issue have been answered and I have made no promises or guarantees to thepatient. The patient has also been advised to contact this office for worsening conditions or problems, and seek emergency medical treatment and/or call 911 if the patient deems either necessary. Patient's telehealth visit with patient and provider is done in the [facility] from the [facility] supported by [facility]. Cosigned by Memo Canas MD at 11/01/2024 9:49 PM EDT documented in this [facility]09-02-2025 NoteH+ P copied to chart from (office provider's name Dylon GuptaLIDIA) progress note dated 10/16/24 on behalf of (procedural physician's name Dr. Canas). [facility] Telehealth Cardiology Note DATE of SERVICE: 10/16/24 TIME of SERVICE: 12:45 PM Chief Complaint: Chief Complaint Patient presents with Follow-up History of Present Illness: Linda Peralta is a 79 y.o. female known to Dr. 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 She was switched to Eliquis 5 mg po bid and remains on that now. She was seen in valve clinic on 09/03 for aortic stenosis. Echo from 07/14 shows EF 47% with a mean gradient of 39 mm Hg. She reported dyspnea with moderate activity. No CAD per [facility]. Weight 156 lbs. Last clinic visit Telehealth visit completed today with patient and daughter. She reports slightly more SOB and more abdominal bloating. Denies angina, PND or LE edema. Weight 151 lbs today. She recently had 3 day course of lasix 40 mg once a day. She states she lost 15 lbs after 3 doses of lasix. Participants on telehealth call: Linda Peralta Daughter Souleymane Past Medical History: [Medical History] [Medical History] Past Medical History Diagnosis Date Plumas anemia 2010 Past Surgical History [Surgical History] [Surgical History] Past Surgical History Procedure Laterality Date BLADDER REPAIR HX CYSTECTOMY (HISTORICAL) LAPAROSCOPIC NEPHRECTOMY (HISTORICAL) Left TOTAL ABDOMINAL HYSTERECTOMY Family History [Family History] [Family History] Problem Relation Name Age of Onset Heart attack Mother Stroke Father Social History [Social History] [Social History] Tobacco Use Smoking status: Never Smokeless tobacco: Never Vaping Use Vaping status: Never Used Substance Use Topics Alcohol use: Never Drug use: Never Comment: 1 cup of coffee daily Allergies: [Allergies] [Allergies] Allergen Reactions Amlodipine Swelling Ciprofloxacin Other and Rash rash with 500mg dose Penicillins Other and Rash rash Medications: [Current Medications] [Current Medications] Current Outpatient Medications: acetaminophen (Tylenol) 325 MG tablet, Take 650 mg by mouth every 6 hours as needed., Disp: , Rfl: apixaban (Eliquis) 5 MG tablet, Take 5 mg by mouth 2 times daily., Disp: , Rfl: ascorbic acid (Vitamin C) 1000 MG tablet, Take 1,000 mg by mouth Nightly., Disp: , Rfl: denosumab (Prolia) 60 MG/ML solution prefilled syringe, Inject 60 mg under the skin every 6 (six) months., Disp: , Rfl: furosemide (Lasix) 40 MG tablet, Take 1 tablet (40 mg) by mouth daily. Take one pill daily for three days and then stop, Disp: 30 tablet, Rfl: 0 hydrocortisone (Cortef) 10 MG tablet, TAKE 2 TABLETS BY MOUTH IN THE MORNING AND TAKE 1 TABLET AT 1 IN THE EVENING, Disp: , Rfl: lisinopril 5 MG tablet, Take 5 mg by mouth daily., Disp: , Rfl: methenamine hippurate (Hiprex) 1 g tablet, Take 1 g by mouth Nightly., Disp: , Rfl: nitroglycerin (Nitrostat) 0.4 MG SL tablet, TAKE 1 TABLET BY MOUTH EVERY 5-15 MINUTES NEEDED for cardiac or chest pain, Disp: , Rfl: simvastatin (Zocor) 20 MG tablet, Take 20 mg by mouth Nightly., Disp: , Rfl: warfarin (Coumadin) 2.5 MG tablet, TAKE 1 TABLET BY MOUTH DAILY AT 5PM (Patient not taking: Reported on 09/03/2024), Disp: , Rfl: Review of Systems: Review of Systems Constitutional: Negative for chills and fever. Respiratory: Positive for shortness of breath. Negative for cough. Cardiovascular: Positive for leg swelling. Negative for chest pain and palpitations. Gastrointestinal: Positive for abdominal distention. Negative for abdominal pain, blood in stool and vomiting. Genitourinary: Negative for difficulty urinating and hematuria. Neurological: Negative for dizziness and syncope. Vital Signs (self reported) 120/58 Failed to redirect to the Timeline version of the [facility] SmartLink. Limited Telehealth exam Constitutional: [x]Alert [x]Oriented Appearance: []Healthy []Chronically ill []Acutely ill []Disheveled [x]NA (audio only) Medical Insight: [x]Good []Adequate []Limited []Poor Laboratory Tests: No results found for: WBC, HGB, HCT, MCV, PLT No results found for: GLUCOSE, CALCIUM, NA, K, CO2, CL, BUN, CREATININE @LASTCMP@ No results found for: CHLPL, CHOL No results found for: TRIG No results found for: HDL No results found for: LDLCALC Recent labs under Media tab Cardiac Tests: ECG: SR Assessment and Plan: @DIAGREFRESH@ 1. Severe aortic stenosis (Primary) Reviewed pre procedure instructions for TAVR scheduled 10/23/24. All questions answered. She is agreeable to plan. 2. Stage 3 chronic kidney disease, unspecified whether st (more content not included)...[facility] [id number] NoteH+ P copied to chart from (office provider's name Dylon Gupta APRN) progress note dated 10/16/24 on behalf of (procedural physician's name Dr. Canas). [facility] Telehealth Cardiology Note DATE of SERVICE: 10/16/24 TIME of SERVICE: 12:45 PM Chief Complaint: Chief Complaint Patient presents with Follow-up History of Present Illness: Linda Peralta is a 79 y.o. female known to Dr. Marte with a history for CAD, HPL, DVT, PE, Moris's disease, CKD s/p left nephrectomy (donated) and right partial nephrectomy (GFR 40), MVP; she had an admission in July for UTI after heart cath and developed extensive bilat DVTs after stopping Coumadin for 5 days. She was switched to Eliquis 5 mg po bid and remains on that now. She was seen in valve clinic on 09/03 for aortic stenosis. Echo from 07/14 shows EF 47% with a mean gradient of 39 mm Hg. She reported dyspnea with moderate activity. No CAD per [facility]. Weight 156 lbs. Last clinic visit Telehealth visit completed today with patient and daughter. She reports slightly more SOB and more abdominal bloating. Denies angina, PND or LE edema. Weight 151 lbs today. She recently had 3 day course of lasix 40 mg once a day. She states she lost 15 lbs after 3 doses of lasix. Participants on telehealth call: Linda Peralta Daughter Souleymane Past Medical History: [Medical History] [Medical History] Past Medical History Diagnosis Date Moris anemia 2010 Past Surgical History [Surgical History] [Surgical History] Past Surgical History Procedure Laterality Date BLADDER REPAIR HX CYSTECTOMY (HISTORICAL) LAPAROSCOPIC NEPHRECTOMY (HISTORICAL) Left TOTAL ABDOMINAL HYSTERECTOMY Family History [Family History] [Family History] Problem Relation Name Age of Onset Heart attack Mother Stroke Father Social History [Social History] [Social History] Tobacco Use Smoking status: Never Smokeless tobacco: Never Vaping Use Vaping status: Never Used Substance Use Topics Alcohol use: Never Drug use: Never Comment: 1 cup of coffee daily Allergies: [Allergies] [Allergies] Allergen Reactions Amlodipine Swelling Ciprofloxacin Other and Rash rash with 500mg dose Penicillins Other and Rash rash Medications: [Current Medications] [Current Medications] Current Outpatient Medications: acetaminophen (Tylenol) 325 MG tablet, Take 650 mg by mouth every 6 hours as needed., Disp: , Rfl: apixaban (Eliquis) 5 MG tablet, Take 5 mg by mouth 2 times daily., Disp: , Rfl: ascorbic acid (Vitamin C) 1000 MG tablet, Take 1,000 mg by mouth Nightly., Disp: , Rfl: denosumab (Prolia) 60 MG/ML solution prefilled syringe, Inject 60 mg under the skin every 6 (six) months., Disp: , Rfl: furosemide (Lasix) 40 MG tablet, Take 1 tablet (40 mg) by mouth daily. Take one pill daily for three days and then stop, Disp: 30 tablet, Rfl: 0 hydrocortisone (Cortef) 10 MG tablet, TAKE 2 TABLETS BY MOUTH IN THE MORNING AND TAKE 1 TABLET AT 1 IN THE EVENING, Disp: , Rfl: lisinopril 5 MG tablet, Take 5 mg by mouth daily., Disp: , Rfl: methenamine hippurate (Hiprex) 1 g tablet, Take 1 g by mouth Nightly., Disp: , Rfl: nitroglycerin (Nitrostat) 0.4 MG SL tablet, TAKE 1 TABLET BY MOUTH EVERY 5-15 MINUTES NEEDED for cardiac or chest pain, Disp: , Rfl: simvastatin (Zocor) 20 MG tablet, Take 20 mg by mouth Nightly., Disp: , Rfl: warfarin (Coumadin) 2.5 MG tablet, TAKE 1 TABLET BY MOUTH DAILY AT 5PM (Patient not taking: Reported on 09/03/2024), Disp: , Rfl: Review of Systems: Review of Systems Constitutional: Negative for chills and fever. Respiratory: Positive for shortness of breath. Negative for cough. Cardiovascular: Positive for leg swelling. Negative for chest pain and palpitations. Gastrointestinal: Positive for abdominal distention. Negative for abdominal pain, blood in stool and vomiting. Genitourinary: Negative for difficulty urinating and hematuria. Neurological: Negative for dizziness and syncope. Vital Signs (self reported) 120/58 Failed to redirect to the Timeline version of the [facility]. Limited Telehealth exam Constitutional: [x]Alert [x]Oriented Appearance: []Healthy []Chronically ill []Acutely ill []Disheveled [x]NA (audio only) Medical Insight: [x]Good []Adequate []Limited []Poor Laboratory Tests: No results found for: WBC, HGB, HCT, MCV, PLT No results found for: GLUCOSE, CALCIUM, NA, K, CO2, CL, BUN, CREATININE @LASTCMP@ No results found for: CHLPL, CHOL No results found for: TRIG No results found for: HDL No results found for: LDLCALC Recent labs under Media tab Cardiac Tests: ECG: SR Assessment and Plan: @DIAGREFRESH@ 1. Severe aortic stenosis (Primary) Reviewed pre procedure instructions for TAVR scheduled 10/23/24. All questions answered. She is agreeable to plan. 2. Stage 3 chronic kidney disease, unspecified whether st (more content not included)...[facility]08-29-2025 NotePre TAVR phone call placed. Reviewed, procedure, instructions and meds. Pt verbalizes understanding. Pt knows to call [phone] with any concerns. Patient states she is going to last picker Lovenox today. [facility] notified to complete prep for proc Diagnosis: Aortic Stenosis Procedure being done: TAVR Date/time of procedure: 10/23/24 at 7:30 am Surgeon: Dr. Canas 2nd surgeon: Dr. Self Admission type: To be admitted Anesthesia: MAC Completed: BMP, CBC, CTA, H&P Date completed: 10/17/24 Additional orders Type and screen AM of [facility] 10-18-2024 Telephone encounter Note* Telephone Encounter - Shilpi Cook RN - 10/18/2024 4:56 PM EDT Pre TAVR phone call placed. Reviewed, procedure, instructions and meds. Pt verbalizes understanding. Pt knows to call [phone] with any concerns. Patient states she is going to last picker Lovenox today. [facility] notified to complete prep for proc Diagnosis: Aortic Stenosis Procedure being done: TAVR Date/time of procedure: 10/23/24 at 7:30 am Surgeon: Dr. Canas 2nd surgeon: Dr. Self Admission type: To be admitted Anesthesia: MAC Completed: BMP, CBC, CTA, H&P Date completed: 10/17/24 Additional orders Type and screen AM of proc [id number] Telephone encounter Note* Telephone Encounter - Jewels Levy - 10/18/2024 3:56 PM EDT Labs scanned under Media [id number] Telephone encounter Note* Telephone Encounter - Jewels Levy - 10/18/2024 3:34 PM EDT Requested lab from [place]. She is faxing them to [facility]. [place] [id number] Telephone encounter Note* Telephone Encounter - Jewels Levy - 10/17/2024 10:51 AM EDT Pending on [employer] using [facility] telephone visit from yesterday. Pending# [id number] [id number] Telephone encounter Note* Telephone Encounter - Jewels Levy - 10/16/2024 3:07 PM EDT Letter and [facility] chart note faxed to [phone] and confirmed [id number] Telephone encounter Note* Telephone Encounter - Shilpi Cook RN - 10/16/2024 2:27 PM EDT PC to Dr. Gregory office. Requesting fax regarding medication recommendation sent to [phone]. Will discuss with Jo Levy. [place] [id number] Telephone encounter Note* Telephone Encounter - Shilpi Cook RN - 10/16/2024 2:13 PM EDT PC to dr Gregory office. Placed on hold and disconnected. Will try again later. [place] [id number] History of Present illness Narrative* LIDIA Mon CNP - 10/16/2024 11:00 AM EDT [facility] Telehealth Cardiology Note DATE of SERVICE: 10/16/24 TIME of SERVICE: 12:45 PM Chief Complaint: Chief Complaint Patient presents with Follow-up History of Present Illness: Linda Peralta is a 79 y.o. female known to Dr. 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 She was switched to Eliquis 5 mg po bid and remains on that now. She was seen in valve clinic on 09/03 for aortic stenosis. Echo from 07/14 shows EF 47% with a mean gradient of 39 mm Hg. She reported dyspnea with moderate activity. No CAD per [facility]. Weight 156 lbs. Last clinic visit Telehealth visit completed today with patient and daughter. She reports slightly more SOB and more abdominal bloating. Denies angina, PND or LE edema. Weight 151 lbs today. She recently had 3 day course of lasix 40 mg once a day. She states she lost 15 lbs after 3 doses of lasix. Participants on telehealth call: Linda Peralta Daughter Souleymane Past Medical History: Medical History[1] Past Surgical History Surgical History[2] Family History Family History[3] Social History Social History[4] Allergies: Allergies[5] Medications: Current Medications[6] Review of Systems: Review of Systems Constitutional: Negative for chills and fever. Respiratory: Positive for shortness of breath. Negative for cough. Cardiovascular: Positive for leg swelling. Negative for chest pain and palpitations. Gastrointestinal: Positive for abdominal distention. Negative for abdominal pain, blood in stool and vomiting. Genitourinary: Negative for difficulty urinating and hematuria. Neurological: Negative for dizziness and syncope. Vital Signs (self reported) 120/58 Failed to redirect to the Timeline version of the [employer] SmartLink. Limited Telehealth exam Constitutional: [x]Alert [x]Oriented Appearance: []Healthy []Chronically ill []Acutely ill []Disheveled [x]NA (audio only) Medical Insight: [x]Good []Adequate []Limited []Poor Laboratory Tests: No results found for: WBC, HGB, HCT, MCV, PLT No results found for: GLUCOSE, CALCIUM, NA, K, CO2, CL, BUN, CREATININE @LASTCMP@ No results found for: CHLPL, CHOL No results found for: TRIG No results found for: HDL No results found for: LDLCALC Recent labs under Media tab Cardiac Tests: ECG: SR Assessment and Plan: @DIAGREFRESH@ 1. Severe aortic stenosis (Primary) Reviewed pre procedure instructions for TAVR scheduled 10/23/24. All questions answered. She is agreeable to plan. 2. Stage 3 chronic kidney disease, unspecified whether stage 3a or 3b CKD (HCC) CKD followed by zinc plater Dr. Tarango in [place]. Most recent BMP showed SCr 1.61 with CrCl 31. 3. Acute deep vein thrombosis (DVT) of right lower extremity, unspecified vein (HCC) Questionable IVC filter. Currently on Eliquis. Per daughter, LE edema has improved. Post TAVR, willrefer patient to Dr. Gaffney-vascular. We reached out to [facility] for recommendations on bridging. Will stop Eliquis after evening doseon 10/19/24. Starting on 10/20/24, will start lovenox 40 mg SQ BID. She will take her last dose of Lovenox on the morning of 10/22/24. No lovenox dose the evening of 10/22/24. TAVR scheduled for 10/23/24. Will determine plan to resume Eliquis/Lovenox post TAVR. Patient and daughter verbalized understanding. 4. Acute systolic heart failure (HCC) Weight slightly increased with worsening abdominal bloating. Advised lasix 20 mg once a day for 2 days only. 5. Plumas's disease (HCC) Patient is currently taking hydrocortisone (Cortef) 10 mg TID. Will reach out to enterprise application analyst Dr. Gregory in [place] ([phone]). for recommendations on IV hydrocortisone prior to TAVR. Patient was seen today via Telehealth by agreement and consent. I used the following Telehealth technology: Audio capability only. Total length of call 28 minutes. The patient was offered and advisedvideo for a more comprehensive evaluation, but the patient declined or was unable to use video. This patient encounter is appropriate and reasonable under the circumstances given the patient's particular presentation at this time. The patient has been advised of the potential risks and limitations of this mode of treatment (including but not limited to the absence of in-person examination) and has agreed to be treated in a remote fashion in spite of them. Any and all of the patient's/patient's f amily's questions on this issue have been answered and I have made no promises or guarantees to thepatient. The patient has also been advised to contact this office for worsening conditions or problems, and seek emergency medical treatment and/or call 911 if the patient deems either necessary. Patient's telehealth visit with patient and provider is done in the [facility] from the [facility] supported by [facility]. [1] Past Medical History: Diagnosis Date Moris anemia 2010 [2] Past Surgical History: Procedure Laterality Date BLADDER REPAIR HX CYSTECTOMY (HISTORICAL) LAPAROSCOPIC NEPHRECTOMY (HISTORICAL) Left TOTAL ABDOMINAL HYSTERECTOMY [3] Family History Problem Relation Name Age of Onset Heart attack Mother Stroke Father [4] Social History Tobacco Use Smoking status: Never Smokeless tobacco: Never Vaping Use Vaping status: Never Used Substance Use Topics Alcohol use: Never Drug use: Never Comment: 1 cup of coffee daily [5] Allergies Allergen Reactions Amlodipine Swelling Ciprofloxacin Other and Rash rash with 500mg dose Penicillins Other and Rash rash [6] Current Outpatient Medications: acetaminophen (Tylenol) 325 MG tablet, Take 650 mg by mouth every 6 hours as needed., Disp: , Rfl: apixaban (Eliquis) 5 MG tablet, Take 5 mg by mouth 2 times daily., Disp: , Rfl: ascorbic acid (Vitamin C) 1000 MG tablet, Take 1,000 mg by mouth Nightly., Disp: , Rfl: denosumab (Prolia) 60 MG/ML solution prefilled syringe, Inject 60 mg under the skin every 6 (six) months., Disp: , Rfl: furosemide (Lasix) 40 MG tablet, Take 1 tablet (40 mg) by mouth daily. Take one pill daily for three days and then stop, Disp: 30 tablet, Rfl: 0 hydrocortisone (Cortef) 10 MG tablet, TAKE 2 TABLETS BY MOUTH IN THE MORNING AND TAKE 1 TABLET AT 1IN THE EVENING, Disp: , Rfl: lisinopril 5 MG tablet, Take 5 mg by mouth daily., Disp: , Rfl: methenamine hippurate (Hiprex) 1 g tablet, Take 1 g by mouth Nightly., Disp: , Rfl: nitroglycerin (Nitrostat) 0.4 MG SL tablet, TAKE 1 TABLET BY MOUTH EVERY 5-15 MINUTES NEEDED forcardiac or chest pain, Disp: , Rfl: simvastatin (Zocor) 20 MG tablet, Take 20 mg by mouth Nightly., Disp: , Rfl: warfarin (Coumadin) 2.5 MG tablet, TAKE 1 TABLET BY MOUTH DAILY AT 5PM (Patient not taking: Reported on 09/03/2024), Disp: , Rfl: documented in this [facility]08-27-2025 Telephone encounter Note* Telephone Encounter - LIDIA Mon CNP - 10/16/2024 8:21 AM EDT Reviewed plan for bridging with [facility] pharmacist. Patient's CrCl is 31. She advised lovenox 40 mg BID for bridging. -patient will take last dose of Eliquis on 10/19/24 -starting on 10/20/24, patient will start lovenox 40 mg BID -she will take her last dose of lovenox morning of 10/22. -No lovenox the evening of 10/22 or morning of 10/23 [place] [id number] Telephone encounter Note* Telephone Encounter - Jewels Levy - 10/15/2024 11:14 AM EDT Lab order faxed to [facility] [phone]/confirmed [place] [id number] Telephone encounter Note* Telephone Encounter - Jewels Levy - 10/15/2024 9:58 AM EDT I need PB to please finish his chart note so I can submit this auth [place] [id number] Telephone encounter Note* Telephone Encounter - Desirae Martinez RN - 10/14/2024 3:09 PM EDT Spoke with patient, she will have labs drawn tomorrow at [place]. Will have escrow secretary fax lab orders over [place] [id number] NoteReviewed lab work with Butch Gupta APRN, will have patient hold lisinopril until after procedure. Okay to proceed with TAVR, pended case request Spoke with patient verbalized understanding of medication change. Agreed to below procedure date/time. Dx: Severe Aortic stenosis Procedure: TAVR Date/Time: 10/23/24 at 7:30 am Surgeon: Dr. Canas/ Dr. self Location: [facility] Admission: TBA Anesthesia: DEVANG Levy notified to schedule procedure and obtain insurance auth. Patient scheduled for telephone visit for H&P update and to review bridging instructions 10/16. Reviewed TAVR teach instructions while patient was on the phone. TAVR procedure, instructions reviewed with pt Patient scheduled for TAVR on 10/23/24 at 7:30 am Will report to [facility] by 5:30 am Can park in the [facility] Parking Deck or use [employer] parking at the [facility] entrance Plan on overnight stay in the hospital Will not be able to drive for 1 week after procedure Will receive moderate sedation through the IV, will be relaxed but awake during the procedure Nothing to eat or drink after midnight Hold all morning medications Will call with any questions/concerns Patient/family verbalized understanding.[facility]08-25-2025 Telephone encounter Note* Telephone Encounter - Desirae Martinez RN - 10/14/2024 11:18 AM EDT Reviewed lab work with Butch Gupta APRN, will have patient hold lisinopril until after procedure. Okay to proceed with TAVR, pended case request Spoke with patient verbalized understanding of medication change. Agreed to below procedure date/time. Dx: Severe Aortic stenosis Procedure: TAVR Date/Time: 10/23/24 at 7:30 am Surgeon: Dr. Canas/ Dr. self Location: [facility] Admission: TBA Anesthesia: DEVANG Levy notified to schedule procedure and obtain insurance auth. Patient scheduled for telephone visit for H&P update and to review bridging instructions 10/16. Reviewed TAVR teach instructions while patient was on the phone. TAVR procedure, instructions reviewed with pt Patient scheduled for TAVR on 10/23/24 at 7:30 am Will report to [facility] by 5:30 am Can park in the [facility] Parking Deck or use [employer] parking at the [facility] entrance Plan on overnight stay in the hospital Will not be able to drive for 1 week after procedure Will receive moderate sedation through the IV, will be relaxed but awake during the procedure Nothing to eat or drink after midnight Hold all morning medications Will call with any questions/concerns Patient/family verbalized understanding. [id number] Telephone encounter Note* Telephone Encounter - LIDIA Mon CNP - 10/14/2024 10:46 AM EDT Patient is scheduled for TAVR on 10/23/24. -Reviewed bridging with [facility] pharmacist. Patient current CrCl is 24 which is too low to use lovenox. -Will need to repeat BMP and CBC and see if CrCl is 30 or higher. Labs ordered -If CrCl is greater than 30 will plan to hold Eliquis 3 days prior so her last Eliquis dose would be evening dose on 10/19/24. -Will start lovenox 80 mg BID the morning of 10/20/24. -last dose will be morning of 10/22/24 (will discuss with Dr. Canas as plan may be to give evening dose of lovenox on 10/22/24) -post TAVR, plan to resume Eliquis on 10/24/24 likely in the morning. (Will review this with Dr. Canas) [facility] [id number] Telephone encounter Note* Telephone Encounter - Jewels Levy - 10/10/2024 4:12 PM EDT Results scanned under Media [facility] [id number] Miscellaneous Notes* Telephone Encounter - Jewels Levy - 10/10/2024 4:12 PM EDT Results scanned under Media * Telephone Encounter - Jewels Levy - 10/10/2024 1:38 PM EDT I called and spoke to Salima and she is faxing result * Telephone Encounter - Jewels Levy - 10/08/2024 2:11 PM EDT I need PB chart note finished from 09/03/24 to do this auth * Telephone Encounter - Jewels Levy - 10/07/2024 4:10 PM EDT I called [place] lab and l/m to send me results * Telephone Encounter - Jewels Levy - 10/02/2024 4:38 PM EDT Order faxed to and confirmed * Telephone Encounter - LIDIA Patel CNP - 10/02/2024 4:26 PM EDT Spoke with patient regarding US kidney. Repeat BMP . Please send lab req to [facility]. Will discuss moving forprsr with TAVR with Dr. Canas documented in this encounterSOhio State University Wexner Medical [id number] Telephone encounter Note* Telephone Encounter - Jewels Levy - 10/10/2024 1:38 PM EDT I called and spoke to Salima and she is faxing result [facility] [id number] Telephone encounter Note* Telephone Encounter - Desirae Martinez RN - 10/10/2024 1:15 PM EDT Reviewed with Butch Joel APRN as patient completed renal US, plan if BMP shows stable function to proceed with TAVR. BMP results from 10/03/24 at [place] show creatinine 1.82 with GRF 28. Will have UNIT AID review and place TAVR case request if appropriate [place] [id number] Telephone encounter Note* Telephone Encounter - Jewels Levy - 10/08/2024 2:11 PM EDT I need PB chart note finished from 09/03/24 to do this auth [place] [id number] Miscellaneous Notes* Telephone Encounter - Jewels Levy - 10/08/2024 2:11 PM EDT I need PB chart note finished from 09/03/24 to do this auth * Telephone Encounter - Jewels Levy - 10/07/2024 4:10 PM EDT I called [place] lab and l/m to send me results * Telephone Encounter - Jewels Levy - 10/02/2024 4:38 PM EDT Order faxed to and confirmed * Telephone Encounter - Basim Joel APRN - AIRWAYS CONTROL SPECIALIST - 10/02/2024 4:26 PM EDT Spoke with patient regarding US kidney. Repeat [facility] . Please send lab req to [facility]. Will discuss moving forwasr with TAVR with Dr. Canas documented in this encounterSOhio State University Wexner Medical [id number] Telephone encounter Note* Telephone Encounter - Jewels Levy - 10/07/2024 4:10 PM EDT I called [place] [facility] and l/m to send me results [facility] [id number] Miscellaneous Notes* Telephone Encounter - Jewels Levy - 10/07/2024 4:10 PM EDT I called [place] [facility] and l/m to send me results * Telephone Encounter - Jewels Levy - 10/02/2024 4:38 PM EDT Order faxed to and confirmed * Telephone Encounter - LIDIA Patel CNP - 10/02/2024 4:26 PM EDT Spoke with patient regarding US kidney. Repeat BMP . Please send lab req to [facility]. Will discuss moving forwasr with TAVR with Dr. Canas documented in [place] encounterS[place] [id number] Telephone encounter Note* Telephone Encounter - Jewels Levy - 10/02/2024 4:38 PM EDT Order faxed to and confirmed [facility] HospitalEkbkgi11-22-1132 Miscellaneous Notes* Telephone Encounter - Jewels Levy - 10/02/2024 4:38 PM EDT Order faxed to * Telephone Encounter - LIDIA Patel CNP - 10/02/2024 4:26 PM EDT Spoke with patient regarding US kidney. Repeat [facility] . Please send lab req to [facility]. Will discuss moving forwasr with TAVR with Dr. Canas documented in this [place] [id number] Miscellaneous Notes* Telephone Encounter - Jewels Levy - 10/02/2024 4:38 PM EDT Order faxed to and confirmed * Telephone Encounter - LIDIA Patel CNP - 10/02/2024 4:26 PM EDT Spoke with patient regarding US kidney. Repeat [facility] . Please send lab req to [facility]. Will discuss moving forwasr with TAVR with Dr. Canas documented in this [place] [id number] Telephone encounter Note* Telephone Encounter - LIDIA Patel CNP - 10/02/2024 4:26 PM EDT Spoke with patient regarding US kidney. Repeat BMP . Please send lab req to [facility]. Will discuss moving forprsr with TAVR with Dr. Canas [place] [id number] Telephone encounter Note* Telephone Encounter - LIDIA Patel CNP - 09/26/2024 5:28 PM EDT BMP review. Bump in BUN/creat after 3 days of 40 mg po Lasix. Spoke with daughter. Weight down to 144 #, swelling, improved, dyspnea improved. Will use Lasix 20 mg po for weight gain greater than 3 lbs overnight or 5lbs in a week. Daughter will relay recommendations. [place] [id number] Miscellaneous Notes* Telephone Encounter - LIDIA Patel CNP - 09/26/2024 5:28 PM EDT BMP review. Bump in BUN/creat after 3 days of 40 mg po Lasix. Spoke with daughter. Weight down to 144 #, swelling, improved, dyspnea improved. Will use Lasix 20 mg po for weight gain greater than 3 lbs overnight or 5lbs in a week. Daughter will relay recommendations. documented in this [place] [id number] NoteHNO ID: [id number] Author: SHAKIRA BENOIT RDMS Service: ? Author Type: Technologist Type: Progress Notes Filed: 09/26/2024 14:20 Note Text: Radiology Service Progress Note PATIENT NAME: Linda Peralta DATE OF SERVICE: September 26, 2024 TIME: 2:20 PM PATIENT IDENTITY VERIFICATION COMPLETED USING TWO (2) IDENTIFIERS: Name and Date of confirmed by patient verbally. FALL SCREENING: Has the patient had 2 falls in the last year or 1 fall with injury or currently using an Ambulatory Assistive Device (Walker, Cane, Wheelchair, Crutches, etc.)? No PATIENT GENDER DATA: Assigned female at . status: : No status: NO. PATIENT RELEVANT IMPLANT DATA REVIEWED: Not Applicable PATIENT PRESENTS WITH AN IMPLANTABLE OR ATTACHED REMELT PAN TANK OPERATOR: No RADIOLOGY DEPARTMENT: Ultrasound PERIPHERAL IV DATA: Not applicable SIGNED BY: Shakira Benoit RDMS September 26, 2024 2:20 [facility]08-04-2025 Telephone encounter Note* Telephone Encounter - Sindi Angeles - 09/23/2024 8:25 AM EDT Per appointment desk, patient scheduled with ID on 10-23-24 at 9:00a.m. with Dr. Noble Chowdary. Cecy Angeles September 23, 2024 8:26 AM [facility]08-04-2025 Miscellaneous Notes* Telephone Encounter - Sindi Angeles - 09/23/2024 8:25 AM EDT Per appointment desk, patient scheduled with ID on 10-23-24 at 9:00a.m. with Dr. Noble Chowdary. Cecy Angeles September 23, 2024 8:26 AM * Telephone Encounter - Sindi Angeles - 09/19/2024 12:05 PM EDT Patient saw Arelis Smith CNP today and had a consult to ID placed. Gave patient scheduling number for their office, and also faxed order with face sheet to their office. Advised patient to call theiroffice if they haven't heard from them within 2 weeks. Received fax confirmation which will be scanned into the chart. Cecy Angeles September 19, 2024 12:06 PM documented in this encounterOhiohealth Shelby Hospital07-31-2025 History of Present illness Narrative* Basim Joel, UNIT AID - AIRWAYS CONTROL SPECIALIST - 09/19/2024 3:00 PM EDT Images from the original note were not included. [facility] - [address] [address] Dept: [phone] Dept Visit type: Established : 1945 Reason for Visit: Cardiac Valve Problem Assessment and Plan 1. Aortic valve stenosis, etiology of cardiac valve disease unspecified - ECG 12 lead - CLINIC PERFORMED - Basic metabolic panel Plan TAVR once plan for UTI established. Consider ID consult to guide antibiotics with upcoming TAVR procedure. Await kidney ultrasound, ua cx 2. Deep vein thrombosis (DVT) of proximal vein of both lower extremities, unspecified chronicity (HCC). On apixaban. Continues to have significant LE edema. ? Occluded IVC filter. Discussed with Dr. Canas. Plan referral to Dr. Gaffney- vascular. Will reach out to [facility] for bridging recommendation 3. Acute systolic heart failure (HCC) Will trial low dose diuretic cautiously, follow renal function, BP 4. Plumas's disease (HCC) As above, continue steroids 5. Renal insufficiency 1/2 kidney present. Check renal panel 6. Recurrent UTI. Followed by urology Reviewed with Dr. Canas Subjective Ms Peralta is an 79 yr old female known to Dr. Marte with a PMH for CAD, HPL, DVT, PE, Moris's disease, CKD s/p left nephrectomy (donated) and right partial nephrectomy (GFR 40), MVP; she had an admission in July for UTI after heart cath and developed extensive bilat DVTs after stopping Coumadin for 5 days. She was switched to Eliquis 5 mg po bid and remains on that now. She was seen in valve clinic on 09/03 for aortic stenosis. Echo from 07/14 shows EF 47% with a mean gradient of 39 mm Hg. She reported dyspnea with moderate activity. No CAD per [facility]. Weight 156 lbs. Last clinic visit She is here today to discuss plan for moving forward with TAVR. CTA completed today. She reports dyspnea has worsened a bit. Weight increasing. Swelling continues and worse when legs are dependent. She is able to sleep flat on her side. She denies any chest pain. BP has been stable, no bleeding. She saw urology today. Renal ultrasound scheduled for 09/26, Ua shows WBCs, ua cx pending. No dysuria. Allergies[1] Current Medications[2] Medical History[3] Social History Tobacco Use Smoking status: Never Smokeless tobacco: Never Substance Use Topics Alcohol use: Never Surgical History[4] Family History[5] Objective Vitals: 09/19/24 1457 BP: 115/84 BP Location: Right arm Patient Position: Sitting BP Cuff Size: Adult Pulse: 90 SpO2: 100% Weight: 160 lb (72.6 kg) Height: 5' 2 (1.575 m) Physical Exam Constitutional: Appearance: Normal appearance. HENT: Head: Normocephalic and atraumatic. Nose: Nose normal. Eyes: Conjunctiva/sclera: Conjunctivae normal. Pupils: Pupils are equal, round, and reactive to light. Neck: Comments: JVD to jaw Cardiovascular: Rate and Rhythm: Normal rate and regular rhythm. Pulmonary: Effort: Pulmonary effort is normal. Breath sounds: Normal breath sounds. Abdominal: General: Bowel sounds are normal. Palpations: Abdomen is soft. Musculoskeletal: General: Normal range of motion. Cervical back: Normal range of motion and neck supple. Right lower leg: Edema (3-4 + thigh->ankle) present. Left lower leg: Edema (3-4+ thigh to ankle) present. Skin: General: Skin is warm and dry. Neurological: General: No focal deficit present. Mental Status: She is alert and oriented to person, place, and time. Psychiatric: Mood and Affect: Mood normal. Thought Content: Thought content normal. Data Reviewed and Summarized No results found for: EFBP, PLVEF, LVEFPHYS, LVEF2D, EF Review of tests/labs done/ordered within my specialty: EKG in office: SHERLEY CONTRERAS Review of tests/labs done/ordered outside my specialty: Independent interpretation of tests: Basim Joel APRN - TELLY [1] Allergies Allergen Reactions Amlodipine Swelling Ciprofloxacin Other and Rash rash with 500mg dose Penicillins Other and Rash rash [2] Current Outpatient Medications: hydrocortisone (Cortef) 10 MG tablet, TAKE 2 TABLETS BY MOUTH IN THE MORNING AND TAKE 1 TABLET AT 1IN THE EVENING, Disp: , Rfl: acetaminophen (Tylenol) 325 MG tablet, Take 650 mg by mouth every 6 hours as needed., Disp: , Rfl: apixaban (Eliquis) 5 MG tablet, Take 5 mg by mouth 2 times daily., Disp: , Rfl: ascorbic acid (Vitamin C) 1000 MG tablet, Take 1,000 mg by mouth Nightly., Disp: , Rfl: denosumab (Prolia) 60 MG/ML solution prefilled syringe, Inject 60 mg under the skin every 6 (six) months., Disp: , Rfl: lisinopril 5 MG tablet, Take 5 mg by mouth daily., Disp: , Rfl: methenamine hippurate (Hiprex) 1 g tablet, Take 1 g by mouth Nightly., Disp: , Rfl: nitroglycerin (Nitrostat) 0.4 MG SL tablet, TAKE 1 TABLET BY MOUTH EVERY 5-15 MINUTES NEEDED forcardiac or chest pain, Disp: , Rfl: simvastatin (Zocor) 20 MG tablet, Take 20 mg by mouth Nightly., Disp: , Rfl: warfarin (Coumadin) 2.5 MG tablet, TAKE 1 TABLET BY MOUTH DAILY AT 5PM (Patient not taking: Reported on 09/03/2024), Disp: , Rfl: No current facility-administered medications for this visit. [3] Past Medical History: Diagnosis Date Plumas anemia 2010 [4] Past Surgical History: Procedure Laterality Date BLADDER REPAIR HX CYSTECTOMY (HISTORICAL) LAPAROSCOPIC NEPHRECTOMY (HISTORICAL) Left TOTAL ABDOMINAL HYSTERECTOMY [5] Family History Problem Relation Name Age of Onset Heart attack Mother Stroke Father documented in this [facility]07-31-2025 History of Present illness Narrative* LIDIA Patel CNP - 09/19/2024 3:00 PM EDT Images from the original note were not included. [facility] [address] [address] Dept: [phone] Dept Visit type: Established : 1945 Reason for Visit: Cardiac Valve Problem Assessment and Plan 1. Aortic valve stenosis, etiology of cardiac valve disease unspecified - ECG 12 lead - CLINIC PERFORMED - Basic metabolic panel Plan TAVR once plan for UTI established. Consider ID consult to guide antibiotics with upcoming TAVR procedure. Await kidney ultrasound, ua cx 2. Deep vein thrombosis (DVT) of proximal vein of both lower extremities, unspecified chronicity (HCC). On apixaban. Continues to have significant LE edema. ? Occluded IVC filter. Discussed with Dr. Canas. Plan referral to Dr. Gaffney- vascular. Will reach out to [facility] for bridging recommendation 3. Acute systolic heart failure (HCC) Will trial low dose diuretic cautiously, follow renal function, BP 4. Plumas's disease (HCC) As above, continue steroids 5. Renal insufficiency 1/2 kidney present. Check renal panel 6. Recurrent UTI. Followed by urology Case reviewed with Dr. Canas. Will trial Lasix 40 mg po qd for 3 days. She will get a BMP 09/26. Plan to refer to Dr. Gaffney for suspected IVC filter clotting off. Has renal ultrasound scheduledfor 09/26. Ua studies negative per patient account. Consider referral to ID, pending renal ultrasoundresult. mm Reviewed with Dr. Canas Subjective Ms Peralta is an 79 yr old female known to Dr. Marte with a PMH for CAD, HPL, DVT, PE, Moris's disease, CKD s/p left nephrectomy (donated) and right partial nephrectomy (GFR 40), MVP; she had an admission in July for UTI after heart cath and developed extensive bilat DVTs after stopping Coumadin for 5 days. She was switched to Eliquis 5 mg po bid and remains on that now. She was seen in valve clinic on 09/03 for aortic stenosis. Echo from 07/14 shows EF 47% with a mean gradient of 39 mm Hg. She reported dyspnea with moderate activity. No CAD per [facility]. Weight 156 lbs. Last clinic visit She is here today to discuss plan for moving forward with TAVR. CTA completed today. She reports dyspnea has worsened a bit. Weight increasing. Swelling continues and worse when legs are dependent. She is able to sleep flat on her side. She denies any chest pain. BP has been stable, no bleeding. She saw urology today. Renal ultrasound scheduled for 09/26, Ua shows WBCs, ua cx pending. No dysuria. Allergies[1] Current Medications[2] Medical History[3] Social History Tobacco Use Smoking status: Never Smokeless tobacco: Never Substance Use Topics Alcohol use: Never Surgical History[4] Family History[5] Objective Vitals: 09/19/24 1457 BP: 115/84 BP Location: Right arm Patient Position: Sitting BP Cuff Size: Adult Pulse: 90 SpO2: 100% Weight: 160 lb (72.6 kg) Height: 5' 2 (1.575 m) Physical Exam Constitutional: Appearance: Normal appearance. HENT: Head: Normocephalic and atraumatic. Nose: Nose normal. Eyes: Conjunctiva/sclera: Conjunctivae normal. Pupils: Pupils are equal, round, and reactive to light. Neck: Comments: JVD to jaw Cardiovascular: Rate and Rhythm: Normal rate and regular rhythm. Pulmonary: Effort: Pulmonary effort is normal. Breath sounds: Normal breath sounds. Abdominal: General: Bowel sounds are normal. Palpations: Abdomen is soft. Musculoskeletal: General: Normal range of motion. Cervical back: Normal range of motion and neck supple. Right lower leg: Edema (3-4 + thigh->ankle) present. Left lower leg: Edema (3-4+ thigh to ankle) present. Skin: General: Skin is warm and dry. Neurological: General: No focal deficit present. Mental Status: She is alert and oriented to person, place, and time. Psychiatric: Mood and Affect: Mood normal. Thought Content: Thought content normal. Data Reviewed and Summarized No results found for: EFBP, PLVEF, LVEFPHYS, LVEF2D, EF Review of tests/labs done/ordered within my specialty: EKG in office: SHERLEY CONTRERAS Review of tests/labs done/ordered outside my specialty: Independent interpretation of tests: Basim Joel, UNIT AID - AIRWAYS CONTROL SPECIALIST [1] Allergies Allergen Reactions Amlodipine Swelling Ciprofloxacin Other and Rash rash with 500mg dose Penicillins Other and Rash rash [2] Current Outpatient Medications: hydrocortisone (Cortef) 10 MG tablet, TAKE 2 TABLETS BY MOUTH IN THE MORNING AND TAKE 1 TABLET AT 1IN THE EVENING, Disp: , Rfl: acetaminophen (Tylenol) 325 MG tablet, Take 650 mg by mouth every 6 hours as needed., Disp: , Rfl: apixaban (Eliquis) 5 MG tablet, Take 5 mg by mouth 2 times daily., Disp: , Rfl: ascorbic acid (Vitamin C) 1000 MG tablet, Take 1,000 mg by mouth Nightly., Disp: , Rfl: denosumab (Prolia) 60 MG/ML solution prefilled syringe, Inject 60 mg under the skin every 6 (six) months., Disp: , Rfl: lisinopril 5 MG tablet, Take 5 mg by mouth daily., Disp: , Rfl: methenamine hippurate (Hiprex) 1 g tablet, Take 1 g by mouth Nightly., Disp: , Rfl: nitroglycerin (Nitrostat) 0.4 MG SL tablet, TAKE 1 TABLET BY MOUTH EVERY 5-15 MINUTES NEEDED forcardiac or chest pain, Disp: , Rfl: simvastatin (Zocor) 20 MG tablet, Take 20 mg by mouth Nightly., Disp: , Rfl: warfarin (Coumadin) 2.5 MG tablet, TAKE 1 TABLET BY MOUTH DAILY AT 5PM (Patient not taking: Reported on 09/03/2024), Disp: , Rfl: No current facility-administered medications for this visit. [3] Past Medical History: Diagnosis Date Plumas anemia 2010 [4] Past Surgical History: Procedure Laterality Date BLADDER REPAIR HX CYSTECTOMY (HISTORICAL) LAPAROSCOPIC NEPHRECTOMY (HISTORICAL) Left TOTAL ABDOMINAL HYSTERECTOMY [5] Family History Problem Relation Name Age of Onset Heart attack Mother Stroke Father documented in this [facility]07-31-2025 Miscellaneous Notes* Addendum Note - LIDIA Patel CNP - 09/19/2024 3:00 PM EDTAddended by: BASIM JOEL on: 09/23/2024 01:57 PM Modules accepted: Orders documented in this [facility]07-31-2025 Note* Addendum Note - LIDIA Patel CNP - 09/19/2024 3:00 PM EDTAddended by: BASIM JOEL on: 09/23/2024 01:57 PM Modules accepted: [id number]* Addendum Note - LIDIA Patel CNP - 09/19/2024 3:00 PM EDTAddended by: BASIM JOEL. on: 09/23/2024 01:57 PM Modules accepted: [id number] Telephone encounter Note* Telephone Encounter - Sindi Angeles - 09/19/2024 12:05 PM EDT Patient saw Arelis Smith CNP today and had a consult to ID placed. Gave patient scheduling number for their office, and also faxed order with face sheet to their office. Advised patient to call theiroffice if they haven't heard from them within 2 weeks. Received fax confirmation which will be scanned into the chart. Cecy Angeles September 19, 2024 12:06 PM [facility]07-31-2025 Instructions* Patient Instructions* Arelis Smith APRN.CNP - 09/19/2024 11:21 AM EDT Images from the original note were not included. Ask Nephrology about continuing methenamine Start using vaginal estrogen cream Take daily probiotic Bladder Irritating Foods Foods that may irritate the bladder Eliminate all the foods on this list. As improvement is noticed after a few weeks, begin to reintroduce desired foods on this list one at a time to determine which food(s) cause a problem. Many people find that they can tolerate some of the foods on this list in limited, occasional amounts. All Alcoholic Beverages Singleton Beans Apples Nuts Apple juice Mayonnaise Bananas Nutrasweet Beer Onions (raw) Isaacs s Yeast Peaches Canned Figs Pickled vallejo Cantaloupes Pineapple Carbonated Drinks Plums Champagne Prunes Cheese Raisins Chicken livers [place] bread Chilies/Spicy foods Saccharin Chocolate Sour cream [place] fruits Soy sauce Coffee Strawberries corned beef Tea Cranberries Tomatoes Krystyna beans Vinegar Grapes Vitamins-buffered with aspartame Caffeine Guava Yogurt Artificial Sweeteners Lemon juice Lentils Artificial Colorants Alternative foods This list offers food alternatives to the foods on the list above. Alcohol or pebbles (only as flavoring) Almonds Apple (small) Blueberries Coffee (acid-free Kava) or highly roasted Extracts, marta, rum, etc Irish sauternes Imitation sour cream Onions (cooked?) [place] juice -- reduced acid Peanuts Pears Processed cheese--non aged [place] water Strawberries -- 1/2 cup Sun tea Tomatoes -- low acid White chocolate Pebbles -- late harvest Zest of orange or limes BLADDER HYGIENE CAFFEINE AND BLADDER IRRITANTS: Consuming certain foods and drinks will make your body produce more urine. Consuming irritants will bother your bladder and creat urgency and frequency. Cut down on the following irritants to help reduce your urinary symptoms: Caffeine, Artificial Sweeteners, Artificial Colorants, Alcohol TIMED VOIDING: The bladder should normally empty every 2-3 hours each day. Empty your badder this often, regardless of feeling the need to urinate. This will keep the bladder more empty and reduce your symptoms. Waiting too long until you have to urinate can result in leakage. NOCTURIA (URINATION AT NIGHT): Start to slow down fluid intake from 3:00 PM until dinner time. Try as much as possible to avoid fluid intake after dinner. Especially avoid bladder irritants in the evening: - alcohol, caffeine - artificial sweeteners, artificial colors / dyes Urinate before going to bed to empty the bladder. If you snore, let your doctor know: - snoring can indicate sleep apnea - sleep apnea is a major cause of urination at night If possible, lay down mid-day (1PM - 2PM) to help shed excess fluid. CONSTIPATION: Constipation will worsen bladder symptoms, sometimes quite severely. Please ensure you have a good bowel movement each day. Daily Miralax (polyethylene glycol) and water intake can help with this. [facility] [place] Recurrent UTI Prevention Program: Takes 6 months before it is fully in effect! This is not a treatment program for each time you may get a breakthrough infection in the future orwhile you are waiting for the prevention program to take effect over the next 6 months. Your primary care team will treat any breakthrough infections or provide refills for any of my suggestions below. The following is the recommended treatment to PREVENT recurrent urinary tract infections. 1. Topical estrogen cream for atrophic vaginitis: Please use the applicator as provided 2-3 times per week on alternate days. 2. Probiotics: take any brand once daily: Try the brand Align or femdophilus but change brands every 6 months 3. A good bowel regimen to promote a BM each day or by every 3rd day 4. D-mannose 2g daily 5. Cranberry supplements 6. In select cases where UTI is related to sexual activity, you may be prescribed a low dose antibiotic to be taken once after sexual activity - You may use AZO as directed as an OTC bladder pain relief when you have a breakthrough UTI; I think aspirin or Motrin/Aleve OTC is useful as well during an active infection - If you think you have a UTI, go to an express care or contact your primary care provider Patient Information: Topical estrogen cream is recommended to restore the vaginal epithelium to its pre menopausal state. With a decrease in estrogen after menopause, the vaginal environment changes. This can lead to increased itchiness, dryness, and irritation. The environment becomes more basic/alkaline to a pH of 6.0 to 7.5. Normally the pH level is around 3.5 to 4.5. A different bacterial carmen then begins to colonize the vagina which can lead to increased urinary tract infections. In order to re-establish the good bacteria carmen, it is important to get the vaginal epithelium back to its pre menopausal state.This can be done with topical estrogen cream. A half to full inch of cream on the tip of the fingerused twice a week can do this. It takes about six months for the environment to become hospitable to good bacteria. During this time your doctor may or may not also prescribe a low dose daily antibiotic to decrease your chance of infections. Common side effects of topical estrogen include discharge, vaginal irritation, burning and itching. If you have irritation, the cream can be ordered through our compounding pharmacy in a different formuation. Rare side effects include breast tenderness, vaginal bleeding or spotting. If you experience these,please stop the cream and tell your provider. Histology slides of vaginal epithelium without estrogen then with estrogen supplementation. Epi stands for epithelium. Progress and Prospects in Treating Postmenopausal Vaginal atrophy. Clinical pharmacology & Therapeutics, Vol 89 Number 1, February 2010 Probiotics also helps in re-establishing the good bacteria in the vaginal carmne. Numerous probiotics are available over the counter to use. This can also help with establishing a good bowel regimen. Given the bowels close proximity to both the vagina and urethra/bladder, it is important to have regular bowel movements to decrease voiding symptoms and also decrease the risk of urinary tract infections. A good bowel regimen help with decreasing colonic carmen in the perineal area. This can be done with stool softeners available over the counter to gentle laxatives such as miralax. documented in this encounterOhio[facility] History of Present illness Narrative* Arelis Smith APRN.TELLY - 09/19/2024 11:00 AM EDT Images from the original note were not included. [facility] [place] [facility] [place] UROL [place] EXCHANGE NEW PATIENT UROLOGY VISIT 09/19/2024 10:34 AM PATIENT NAME: Linda Peralta DATE OF : 1945 TODAY'S DATE: 09/19/2024 Referring Provider: Rocio Elizalde [address] [facility] [address] Referring Note Reviewed: Yes Chief Complaint: recurrent UTIs History of Present Illness: Ms. Peralta is a 79 year old female who presents to the office regarding recurrent UTIs. She is accompanied by her daughter. Sees Nephrology Saw Urology 1 time about a year ago -- for urinary urgency, started on methenamine and vitamin C Has been getting UTIs x6 weeks. 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 Updated Documented Urine Cultures: Culture Results - Past 1 Year Culture 08/14/2024 Mixed microbiota, including predominantly: 50,000-<100,000 CFU/ml Enterococcus faecalis ! 50,000-<100,000 CFU/ml Enterococcus faecalis ! 08/29/2024 50,000-<100,000 CFU/ml Streptococcus anginosus ! Gets bladder pressure with UTI UTI symptoms -- Frequency: sometimes Urgency: yes Nocturia:no UUI: yes KAMI:no Incomplete bladder emptying:no Dysuria: sometimes Hematuria:no Has had kidney stones on imaging before but never had any problems from it Review of Systems Constitutional: Negative for fever. Genitourinary: Negative for difficulty urinating, dysuria, flank pain, frequency, hematuria and urgency. 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 (): seen by Dr. Miller, ongoing nausea, vomiting, diarrhea, treated with steroids despit Adrenal insufficiency (HCC) 06/12/2023 Age-related osteoporosis with current pathological fracture with routine healing 01/19/2023 Anemia 08/26/2009 ASHD (arteriosclerotic heart disease) 04/25/2009 Asthma ([facility]) Benign neoplasm of colon 04/26/2005 Tubular adenoma Chronic diarrhea 03/15/2010 Chronic sphenoidal sinusitis 09/15/2003 Closed displaced fracture of fifth metatarsal bone of right foot 03/22/2023 Closed fracture of bone of right foot 11/08/2022 Collagenous colitis 03/30/2010 Contact dermatitis and other eczema, due to unspecified cause 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 Cardiac cath normal. 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Plumas's disease Cystocele, midline 07/23/2007 Diverticulosis of colon (without mention of hemorrhage) DVT of lower extremity (deep venous thrombosis) (HCC) 03/27/2009 Left leg Esophageal reflux Gallstones 03/06/2016 Hypercalcemia 03/19/2009 Hypertension Nonrheumatic aortic valve stenosis 06/30/2023 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 11/13/2013 Alendronate (Fosamax) start: 03/09/2017-03/09/2022 Other adrenal hypofunction PMH - PAST MEDICAL HISTORY OF Left kidney donated Psoriasis and similar disorder Pure hypercholesterolemia 02/17/2015 Renal cyst 03/27/2009 Stage 3b chronic kidney disease (HCC) 07/29/2020 Syncope Tonic pupillary reaction Unspecified disorder of autonomic nervous system 10/20/2003 Unspecified disorder resulting from impaired renal function 04/26/2005 Unspecified sinusitis (chronic) Past Surgical History: PAST SURGICAL HISTORY Procedure Laterality Date CATARACT EXTRACTION HX Bilateral 10/2017 and October 2017 COLONOSCOPY W/BIOPSY 03/25/2016 COLONOSCOPY FLX DX W/COLLJ SPEC WHEN PFRMD 05/12/2004 Colonoscopy COLONOSCOPY FLX DX W/COLLJ SPEC WHEN PFRMD 09/20/2007 Colonoscopy COLONOSCOPY FLX DX W/COLLJ SPEC WHEN PFRMD 05/11/2009 Colonoscopy COLONOSCOPY FLX DX W/COLLJ SPEC WHEN PFRMD 03/26/2010 Inpatient at [facility] ESOPHAGOGASTRODUODENOSCOPY TRANSORAL DIAGNOSTIC 02/2002 EGD ESOPHAGOGASTRODUODENOSCOPY TRANSORAL DIAGNOSTIC 05/01/2009 EGD ESOPHAGOGASTRODUODENOSCOPY TRANSORAL DIAGNOSTIC 11/18/2009 EGD, EXC CYST/ABERRANT BREAST TISSUE OPEN 1/> LESION 1960 benign IVC FILTER PERCUTANEOUS 03/31/2009 LAPS SURG CHOLECYSTECTOMY W/CHOLANGIOGRAPHY 03/30/2016 LEFT HEART CATH,PERCUTANEOUS 04/27/2009 Cardiac cath, L heart LEFT HEART CATH,PERCUTANEOUS 08/05/2024 minimal CAD. mod to severe , MR 2+ EF 60% NEPHRECTOMY PARTIAL 04/2000 Nephrectomy, left NEPHRECTOMY PARTIAL 04/14/2009 Right - metanephric adenoma (benign) OOPHORECTOMY PARTIAL/TOTAL UNI/BI Left 1973 Ovarian cystectomy PERCUTANEOUS DRAINAGE RENAL/PERIRENAL ABSC 05/11/2009 Right urinoma SINUSOTOMY SPHENOID W/WO BIOPSY 09/2001 SLING OPER STRES INCONTINENCE 1989 bladder suspension TOTAL ABDOMINAL HYSTERECT W/WO RMVL TUBE OVARY 1980 Hysterectomy, ARIEL, BSO Social History: Social History Tobacco Use Smoking status: Never Smokeless tobacco: Never Vaping Use Vaping status: Never Used Substance Use Topics Alcohol use: No Drug use: No Medications: Prior to Admission medications : Medication apixaban (ELIQUIS) 5 mg tab(s), Sig Take 1 tablet by mouth two times a day., Start Date 08/29/24, End Date , Taking? , Authorizing Provider Amos Floyd MD Medication ipratropium bromide (ATROVENT) 42 mcg (0.06 %) nasal spray, Sig Use 2 sprays in the nosefour times daily., Start Date 07/24/24, End Date , Taking? , Authorizing Provider Amos Floyd MD Medication hydrocortisone (CORTEF) 10 mg tablet, Sig Take 2 tablets by mouth every morning AND 1 tablet every evening. As directed per endocrinology.., Start Date 07/24/24, End Date , Taking? , Authorizing Provider Amos Floyd MD Medication Ascorbic Acid 1,000 mg tablet, Sig Take 1,000 mg by mouth daily at bedtime., Start Date 12/14/23, End Date , Taking? , Authorizing Provider Provider, [facility] Medication Methenamine Hippurate (HIPREX) 1 gram tablet, Sig Take 1 g by mouth daily at bedtime., Start Date 12/14/23, End Date , Taking? , Authorizing Provider Provider, [facility] Medication simvastatin (ZOCOR) 20 mg tablet, Sig Take 1 tablet by mouth daily at bedtime., Start Date 12/07/23, End Date , Taking? , Authorizing Provider Rocio Elizalde, UNIT AID.AIRWAYS CONTROL SPECIALIST Medication nitroglycerin sublingual (NITROQUICK) 0.4 mg SL tablet, Sig Dissolve 1 tablet under the tongue every 5 minutes as needed., Start Date 12/03/20, End Date , Taking? , Authorizing Provider Amos Floyd MD Medication acetaminophen (TYLENOL) 325 mg tablet, Sig Take 650 mg by mouth every 6 hours as needed. , Start Date , End Date , Taking? , Authorizing Provider Provider, [facility] ALLERGIES Allergen Reactions Cipro [Ciprofloxaci* rash with 500mg dose Penicillins rash Problem List Reviewed: Yes Vitals: BP 124/76 Ht 157.5 cm (5' 2) Wt 70.3 kg (155 lb) BMI 28.35 kg/m Recent Labs: Creatinine Date Value Ref Range Status 07/05/2024 1.34 (H) 0.58 - 0.96 mg/dL Final No results found for: PSA Color (no units) Date Value 06/08/2023 Yellow 11/20/2013 Yellow Clarity (no units) Date Value 06/08/2023 Cloudy 11/20/2013 Clear Glucose, Urine Date Value 06/08/2023 Negative 04/16/2015 Neg mg/dL Bilirubin, Urine (no units) Date Value 06/08/2023 Negative 04/16/2015 Neg Ketones, Urine (no units) Date Value 06/08/2023 Negative 04/16/2015 Neg Specific Iota, Ur (no units) Date Value 06/08/2023 1.020 04/16/2015 1.005 Hemoglobin/Blood,Ur (no units) Date Value 06/08/2023 1+ 04/16/2015 Neg pH, Urine (no units) Date Value 06/08/2023 6.5 04/16/2015 6.0 Protein, Urine Date Value 06/08/2023 Trace 04/16/2015 Neg mg/dL Urobilinogen (no units) Date Value 06/08/2023 0.2 EU/dL 11/20/2013 Normal Nitrites (no units) Date Value 06/08/2023 Positive 04/16/2015 Neg Leukest (no units) Date Value 11/20/2013 2+ Leuk Esterase (no units) Date Value 06/08/2023 3+ 24HR Urine Studies: No results for input(s): LUPH, LUCAL, LUCIT, LUOXA, LUURIC, LUVOL, LSCAO, LSCAP, LSURIC, LUCL, JOSH, LORETTA, LUUREA, LUAM, LUMAG, LUPHOS, LUPCR, LUCREA, LUCRKBW, LUCAKBW, LUCACREA, LUCREACL, LWK, LUSUL in the last [id number] hours. Physical Exam Vitals and nursing note reviewed. Constitutional: General: She is not in acute distress. Appearance: Normal appearance. She is not ill-appearing or toxic-appearing. Comments: Patient in NAD, speaking in full sentences, and breathing is not labored HENT: Head: Normocephalic and atraumatic. Pulmonary: Effort: Pulmonary effort is normal. Skin: General: Skin is warm and dry. Coloration: Skin is not jaundiced or pale. Neurological: Mental Status: She is alert and oriented to person, place, and time. Assessment and Plan: 1. Recurrent UTI - ICD9: 599.0, ICD10: N39.0 (primary diagnosis) - UA DIP, URINE (POC) - BLADDER SCAN - CONSULT TO INFECTIOUS DISEASES - ESTRADIOL 0.01% (0.1 MG/GRAM) VAGINAL CREAM - US KIDNEY/BLADDER - BACTERIAL CULTURE, URINE 2. History of kidney stones - ICD9: V13.01, ICD10: Z87.442 - US KIDNEY/BLADDER Patient is seen as a new patient in Urology regarding recurrent UTIs x6 weeks. She is accompanied by her daughter. Patient needs to have heart valve surgery but cannot until UTIs clear up. They note that PCP wants patient to see infectious disease and thought that is what today's visit was for. They request referral. Patient currently takes methenamine and vitamin C for UTI prevention. She follows with Nephrology. UA with small leuks. PVR 63mL. Urine sent to lab for C&S. Renal US ordered. Will inform patientof results. Will consider cystoscopy. Discussed UTI prevention in detail, including OTC supplementsand vaginal estrogen cream. Prescription for vaginal estrogen cream sent to pharmacy. Patient givenprinted information. Arelis Smith APRN.AIRWAYS CONTROL SPECIALIST Consultation requested by Rocio Elizalde [address] [facility] [address] for an opinion regarding Linda Peralta patient and my final recommendations will be communicated back to the requesting physician by way of shared Medical record or letter via US mail. Recording using CapLinked software for draft documentation of the visit was discussed with the patient/authorized access services representative; all questions welcomed and answered. Patient/authorized access services representative agreed to proceed documented in this [facility]Ohio[facility] NoteHNO ID: [id number] Author: ARELIS SMITH APRN.TELLY Service: ? Author Type: Nurse Practitioner Type: Progress Notes Filed: 09/20/2024 13:00 Note Text: [facility] [place] [facility] [place] UROL [place] EXCHANGE NEW PATIENT UROLOGY VISIT 09/19/2024 10:34 AM PATIENT NAME: Linda Peralta DATE OF : 1945 TODAY'S DATE: 09/19/2024 Referring Provider: Rocio Elizalde [address] [facility] [address] Referring Note Reviewed: Yes Chief Complaint: recurrent UTIs History of Present Illness: Ms. Peralta is a 79 year old female who presents to the office regarding recurrent UTIs. She is accompanied by her daughter. Sees Nephrology Saw Urology 1 time about a year ago -- for urinary urgency, started on methenamine and vitamin C Has been getting UTIs x6 weeks. 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 Updated Documented Urine Cultures: Culture Results - Past 1 Year Culture 08/14/2024 Mixed microbiota, including predominantly: 50,000-<100,000 CFU/ml Enterococcus faecalis ! 50,000-<100,000 CFU/ml Enterococcus faecalis ! 08/29/2024 50,000-<100,000 CFU/ml Streptococcus anginosus ! Gets bladder pressure with UTI UTI symptoms -- Frequency: sometimes Urgency: yes Nocturia:no UUI: yes KAMI:no Incomplete bladder emptying:no Dysuria: sometimes Hematuria:no Has had kidney stones on imaging before but never had any problems from it Review of Systems Constitutional: Negative for fever. Genitourinary: Negative for difficulty urinating, dysuria, flank pain, frequency, hematuria and urgency. 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 (): seen by Dr. Miller, ongoing nausea, vomiting, diarrhea, treated with steroids despit Adrenal insufficiency (HCC) 06/12/2023 Age-related osteoporosis with current pathological fracture with routine healing 01/19/2023 Anemia 08/26/2009 ASHD (arteriosclerotic heart disease) 04/25/2009 Asthma (HCC) Benign neoplasm of colon 04/26/2005 Tubular adenoma Chronic diarrhea 03/15/2010 Chronic sphenoidal sinusitis 09/15/2003 Closed displaced fracture of fifth metatarsal bone of right foot 03/22/2023 Closed fracture of bone of right foot 11/08/2022 Collagenous colitis 03/30/2010 Contact dermatitis and other eczema, due to unspecified cause 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 Cardiac cath normal. 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Moris's disease Cystocele, midline 07/23/2007 Diverticulosis of colon (without mention of hemorrhage) DVT of lower extremity (deep venous thrombosis) ([facility]) 03/27/2009 Left leg Esophageal reflux Gallstones 03/06/2016 Hypercalcemia 03/19/2009 Hypertension Nonrheumatic aortic valve stenosis 06/30/2023 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 11/13/2013 Alendronate (Fosamax) start: 03/09/2017-03/09/2022 Other adrenal hypofunction PMH - PAST MEDICAL HISTORY OF Left kidney donated Psoriasis and similar disorder Pure hypercholesterolemia 02/17/2015 Renal cyst 03/27/2009 Stage 3b chronic kidney disease (HCC) 07/29/2020 Syncope Tonic pupillary reaction Unspecified disorder of autonomic nervous system 10/20/2003 Unspecified disorder resulting from impaired renal function 04/26/2005 Unspecified sinusitis (chronic) Past Surgical History: PAST SURGICAL HISTORY Procedure Laterality Date CATARACT EXTRACTION HX Bilateral 10/2017 and October 2017 COLONOSCOPY W/BIOPSY 03/25/2016 COLONOSCOPY FLX DX W/COLLJ SPEC WHEN PFRMD 05/12/2004 Colonoscopy COLONOSCOPY FLX DX W/COLLJ SPEC WHEN PFRMD 09/20/2007 Colonoscopy COLONOSCOPY FLX DX W/COLLJ SPEC WHEN PFRMD 05/11/2009 Colonoscopy COLONOSCOPY FLX DX W/COLLJ SPEC WHEN PFRMD 03/26/2010 Inpatient at [facility] ESOPHAGOGASTRODUODENOSCOPY TRANSORAL DIAGNOSTIC 02/2002 EGD ESOPHAGOGASTRODUODENOSCOPY TRANSORAL DIAGNOSTIC 05/01/2009 EGD ESOPHAGOGASTRODUODENOSCOPY TRANSORAL DIAGNOSTIC 11/18/2009 EGD, EXC CYST/ABERRANT BREAST TISSUE OPEN 1/> LESION 1960 benign IVC FILTER PERCUTANEOUS 03/31/2009 LAPS SURG CHOLECYSTECTOMY W/CHOLANGIOGRAPHY 03/30/2016 LEFT HEART CATH,PERCUTANEOUS 04/27/2009 Cardiac cath, L (more content not included)...[facility] 09-19-2024 Telephone encounter Note* Telephone Encounter - Ama Diaz RN - 09/19/2024 10:42 AM EDT Pt has Urology appointment set up. Ama Diaz RN [facility]07-31-2025 Miscellaneous Notes* Telephone Encounter - Ama Diaz RN - 09/19/2024 10:42 AM EDT Pt has Urology appointment set up. Ama Diaz RN * Telephone Encounter - Ama Diaz RN - 09/12/2024 5:00 PM EDT Pt called in and reports she has been getting a lot of UTIs and was asking if there was a specialist she should see. I told her typically they would send her to a Urologist. She said her daughter wason her MyChart and had told her that the provider had said about sending her to someone. I told Naheed saw that provider recommended an Allergy consult for Penicillin allergy testing, because you can grow out of that allergy. Provider didn't put in a consult for this. I didn't see anything about a Urologist. Please call and advise Pt. Ama Diaz RN [facility] Telephone encounter Note * Telephone Encounter - Ama Diaz RN - 09/12/2024 5:00 PM EDT Pt called in and reports she has been getting a lot of UTIs and was asking if there was a specialist she should see. I told her typically they would send her to a Urologist. She said her daughter wason her MyChart and had told her that the provider had said about sending her to someone. I told Naheed saw that provider recommended an Allergy consult for Penicillin allergy testing, because you can grow out of that allergy. Provider didn't put in a consult for this. I didn't see anything about a Urologist. Please call and advise Pt. Ama Diaz RN [facility]07-15-2025 History of Present illness Narrative* Baldo De La Cruz MD - 09/03/2024 4:00 PM EDT Images from the original note were not included. [facility]: Cardiothoracic Surgery Multidisciplinary Heart Valve Clinic Date: 09/03/24 Patient:Linda Peralta 1945 79 y.o. female [id number] Subjective: HPI: Linda Peralta [address] Marte is being evaluated for aortic valve stenosis. Echocardiogram completed on 07/03/24 showed moderate to severe aortic valve stenosis with mean [id number] mm Hg. Per note, patient with past medical history significant for STEMI 2009, HLD, DVT, PE, Moris's Disease, CKD, s/p left nephrectomy and right partial nephrectomy, mitral valve prolapse, and aortic valve stenosis. Pt underwent TOMI on 07/03/24 which demonstrated LVEF 45%, 1-2+ WI, stage 1 diastolic dysfunction, moderately severe aortic valve stenosis with mean gradient 39 mmHg. Pt underwent heart catheterization 08/05/24 which demonstrated normal coronary arteries and moderate to severe aortic valvestenosis with recommendation for TAVR and/or CTS consult for AVR and MVR. She had a recent admission for UTI after her heart cath and developed extensive bilateral acute DVTs after stopping coumadin for 5 days. She complains of SOB with moderate activity. [Medical History] [Medical History] Past Medical History No past medical history on file. Blood thinner - warfarin Cardiac Catheterization 08/05/24 Transesophageal Echocardiogram 07/03/24 Review of Systems Constitutional: Negative for activity change, chills, diaphoresis, fatigue and fever. HENT: Negative for nosebleeds and trouble swallowing. Eyes: Negative for discharge and visual disturbance. Respiratory: Positive for shortness of breath. Negative for apnea, cough, chest tightness and wheezing. Cardiovascular: Positive for leg swelling (recent DVT). Negative for chest pain and palpitations. Gastrointestinal: Negative for abdominal distention, abdominal pain, blood in stool, diarrhea, nausea and vomiting. Endocrine: Negative for cold intolerance and heat intolerance. Genitourinary: Negative for hematuria. Musculoskeletal: Positive for gait problem (uses cane). Negative for myalgias. Skin: Negative for color change and rash. Neurological: Positive for weakness (legs). Negative for dizziness, seizures, syncope, facial asymmetry, speech difficulty, light-headedness, numbness and headaches. Hematological: Does not bruise/bleed easily. Psychiatric/Behavioral: Negative for dysphoric mood. Allergies: Amlodipine, Ciprofloxacin, and Penicillins Past Medical History: has no past medical history on file. Past Surgical History: has a past surgical history that includes laparoscopic nephrectomy (historical) (Left); Total abdominal hysterectomy; Bladder repair; and hx cystectomy (historical). Social History: reports that she has never smoked. She has never used smokeless tobacco. She reports that she does not drink alcohol and does not use drugs. Family History: family history includes Heart attack in her mother; Stroke in her father. Medications: Prior to Admission medications Medication Sig Start Date End Date Taking? Authorizing Provider acetaminophen (Tylenol) 325 MG tablet Take 650 mg by mouth every 6 hours as needed. Historical Provider, ascorbic acid (Vitamin C) 1000 MG tablet Take 1,000 mg by mouth Nightly. 12/14/23 Historical Provider, denosumab (Prolia) 60 MG/ML solution prefilled syringe Inject 60 mg under the skin every 6 (six) months. Historical Provider, hydrocortisone (Cortef) 10 MG tablet TAKE 2 TABLETS BY MOUTH IN THE MORNING AND TAKE 1 TABLET AT 1 IN THE EVENING 07/24/24 Historical Provider, lisinopril 5 MG tablet Take 5 mg by mouth daily. Historical Provider, methenamine hippurate (Hiprex) 1 g tablet Take 1 g by mouth Nightly. 12/14/23 Historical Provider, nitroglycerin (Nitrostat) 0.4 MG SL tablet TAKE 1 TABLET BY MOUTH EVERY 5-15 MINUTES NEEDED for cardiac or chest pain Historical Provider, simvastatin (Zocor) 20 MG tablet Take 20 mg by mouth Nightly. 12/07/23 Historical Provider, warfarin (Coumadin) 2.5 MG tablet TAKE 1 TABLET BY MOUTH DAILY AT 5PM Historical Provider, Objective: There were no vitals taken for this visit. @[id number]@ Physical Exam Constitutional: Appearance: Normal appearance. HENT: Head: Normocephalic and atraumatic. Mouth/Throat: Mouth: Mucous membranes are moist. Pharynx: Oropharynx is clear. Eyes: Extraocular Movements: Extraocular movements intact. Conjunctiva/sclera: Conjunctivae normal. Pupils: Pupils are equal, round, and reactive to light. Cardiovascular: Rate and Rhythm: Normal rate and regular rhythm. Heart sounds: Murmur heard. Comments: Systolic murmur with absent S2 Pulmonary: Effort: Pulmonary effort is normal. Breath sounds: Normal breath sounds. Abdominal: General: Abdomen is flat. Palpations: Abdomen is soft. Musculoskeletal: General: Normal range of motion. Cervical back: Normal range of motion and neck supple. Right lower leg: No edema. Left lower leg: No edema. Skin: General: Skin is warm and dry. Neurological: General: No focal deficit present. Mental Status: She is alert and oriented to person, place, and time. Psychiatric: Mood and Affect: Mood normal. Behavior: Behavior normal. Labs: Reviewed in EMR No results found for: WBC, HGB, HCT, MCV, PLT No results found for: NA, K, CL, CO2, BUN, CREATININE, GLUCOSE, CALCIUM Diagnostics: Reviewed in EMR Assessment/Plan: Severe symptomatic aortic stenosis. -given symptoms and severity of the aortic valve stenosis, she meets indication for AVR. TAVR favored over SAVR given her age and comorbidities. We will schedule her for TAVR scans and schedule TAVR soon after. Given acute DVTs after stopping coumadin for 5 days, will need to develop a strategy forbridging prior to the procedure. Patient consents to surgical bailout: [] Yes [] No If No why: Disclaimers: INFORMED CONSENT: The nature and purpose of the proposed treatment and/or procedure have been discussed. The risks and benefits of the proposed treatment or procedures have been reviewed. Alternatives have been reviewed in addition to the risks and benefits of not receiving treatments or undergoingprocedures. Pursuant to this discussion, the patient agrees to undergo the proposed treatment or procedure. Captured images seen in this note are not a substitute for a comprehensive interpretation of the entire data set as reflected by the interpreting physician with regard to radiology, echocardiography,and other diagnostic images. documented in this [facility]07-15-2025 History of Present illness Narrative* Memo Canas MD - 09/03/2024 3:30 PM EDT Images from the original note were not included. [facility] - [address] [address] Dept: [phone] Dept Visit type: New : 1945 Reason for Visit: New Patient and Cardiac Valve Problem (Heart valve clinic) Assessment and Plan 1. Nonrheumatic aortic valve stenosis - CBC auto differential - Basic metabolic panel - ECG 12 lead - CLINIC PERFORMED This is a very pleasant 79y/o female with severe and symptomatic aortic stenosis. She is in need ofaortic valve replacement. We will get a CTA for TAVR planning. With her age and comorbidities, TAVRwill be preferred over surgical AVR, presuming anatomy is favorable. This decision was made after mu ltidisciplinary discussion, using a shared decision making strategy. CT surgery also saw patient fabianoe in discussion. In regards to some special considerations, we will need to make sure her UTI is fully treated before proceeding with TAVR. We will contact her enterprise application analyst for recommendations about steroid dosingaround the time of her procedure. I would also like to make sure her LE edema has significantly improved before proceeding (if it doesn't do so on OAC, may need to see vascular surgery first). When we do perform the TAVR, will likely place pacer from the IJ to as to avoid an IVC filter, as this maybe partially or fully occluded. It was a pleasure seeing your patient in the office today. Please do not hesitate to call me with any questions. Follow up for Recheck after CTA and after LE swelling has improved. Subjective HPI Linda Peralta is a very pleasant 79 y.o. female who is here for evaluation of her aortic valve disease. her symptoms include progressive dyspnea on exertion and fatigue. her most recent echo shows severe aortic stenosis with EF 45%, mean gradient 39mmHg. Cath showed non-obstructive CAD. She has struggled recently with recurrent UTIs. Also, she has a history of prior DVT and has an IVCfilter. Her coumadin was held for her cath, and two days later she presented with extensive bilateral lower extremity DVTs with hot and swollen legs (slowly improving but still markedly swollen). Guevara armas. She also has moris's disease and is on chronic hydrocortisone. Review of Systems Constitutional: Negative for activity change, chills, diaphoresis, fatigue and fever. HENT: Negative for nosebleeds and trouble swallowing. Eyes: Negative for discharge and visual disturbance. Respiratory: Positive for shortness of breath. Negative for apnea, cough, chest tightness and wheezing. Cardiovascular: Positive for leg swelling (recent DVT). Negative for chest pain and palpitations. Gastrointestinal: Negative for abdominal distention, abdominal pain, blood in stool, diarrhea, nausea and vomiting. Endocrine: Negative for cold intolerance and heat intolerance. Genitourinary: Negative for hematuria. Musculoskeletal: Positive for gait problem (Uses cane). Negative for myalgias. Skin: Negative for color change and rash. Neurological: Positive for weakness (legs). Negative for dizziness, seizures, syncope, facial asymmetry, speech difficulty, light-headedness, numbness and headaches. Hematological: Does not bruise/bleed easily. Psychiatric/Behavioral: Negative for dysphoric mood. Allergies[1] Current Medications[2] Medical History[3] Social History Tobacco Use Smoking status: Never Smokeless tobacco: Never Substance Use Topics Alcohol use: Never Surgical History[4] Family History[5] Objective Vitals: 09/03/24 1529 BP: 124/86 BP Location: Right arm Patient Position: Sitting BP Cuff Size: Adult Pulse: 98 Weight: 156 lb (70.8 kg) Height: 5' 2 (1.575 m) Physical Exam Constitutional: General: She is not in acute distress. Appearance: She is not diaphoretic. HENT: Head: Normocephalic. Nose: Nose normal. Mouth/Throat: Mouth: Mucous membranes are moist. Pharynx: No oropharyngeal exudate. Eyes: General: No scleral icterus. Right eye: No discharge. Left eye: No discharge. Neck: Thyroid: No thyromegaly. Vascular: No carotid bruit or JVD. Cardiovascular: Rate and Rhythm: Normal rate and regular rhythm. Pulses: Normal pulses. Heart sounds: Murmur heard. Systolic murmur is present with a grade of 2/6. Pulmonary: Effort: Pulmonary effort is normal. Breath sounds: Normal breath sounds. Abdominal: General: Bowel sounds are normal. There is no distension. Palpations: There is no hepatomegaly. Tenderness: There is no abdominal tenderness. Musculoskeletal: General: Normal range of motion. Cervical back: Normal range of motion. Right lower leg: No edema. Left lower leg: No edema. Skin: General: Skin is warm and dry. Neurological: Mental Status: She is oriented to person, place, and time. Psychiatric: Mood and Affect: Mood normal. Behavior: Behavior normal. Data Reviewed and Summarized No results found for: EFBP, PLVEF, LVEFPHYS, LVEF2D, EF Review of tests/labs done/ordered within my specialty: EKG in office: Review of tests/labs done/ordered outside my specialty: Independent interpretation of tests: I personally reviewed the images from Linda Peralta's most recent TTE and cath in the office today, to help with medical decision making. My interpretation is noted in the HPI section of this note. Memo Canas MD NYHA Class (1-4): 2 STS score: 4.38% 5 meter gait speed in seconds: Ao valve disease etiology (degenerative, rheumatic, endocarditis, other): degenerative [1] Allergies Allergen Reactions Amlodipine Swelling Ciprofloxacin Other and Rash rash with 500mg dose Penicillins Other and Rash rash [2] No current facility-administered medications for this visit. No current outpatient medications on file. Facility-Administered Medications Ordered in Other Visits: acetaminophen (Tylenol) tablet 650 mg, 650 mg, Oral, q4h PRN, Dylon Gupta APRN - [facility] atorvastatin (Lipitor) tablet 10 mg, 10 mg, Oral, Nightly, LIDIA Mon CNP [START ON 10/24/2024] furosemide (Lasix) tablet 40 mg, 40 mg, Oral, Daily, Dylon Gupta APRN - [place] [START ON 10/24/2024] Hydrocortisone Sod Suc (PF) (Solu-CORTEF) injection 50 mg, 50 mg, IntraVENous, Once, Dylon Gupta APRN - [place] [START ON 10/24/2024] lisinopril tablet 5 mg, 5 mg, Oral, Daily, Dylon Gupta APRN - [employer] methenamine hippurate (Hiprex) tablet 1 g, 1 g, Oral, Nightly, Dylon Gupta APRN - [place] mupirocin (Bactroban) 2 % ointment 1 Application, 1 Application, Nasal, BID, Dylon Gupta APRN - [place] perflutren protein A microsphere (Optison) 3 mL in sodium chloride (PF) 0.9 % 10 mL IV, 0-10 mL, IntraVENous, Once PRN, Dylon Gupta APRN - [place] [3] Past Medical History: Diagnosis Date Moris anemia 2010 [4] Past Surgical History: Procedure Laterality Date BLADDER REPAIR CARDIAC CATHETERIZATION N/A 10/23/2024 Performed by Memo Canas MD at [facility] OR CYSTECTOMY (HISTORICAL) LAPAROSCOPIC NEPHRECTOMY (HISTORICAL) Left TOTAL ABDOMINAL HYSTERECTOMY [5] Family History Problem Relation Name Age of Onset Heart attack Mother Stroke Father documented in this [facility]07-10-2025 NoteHNO ID: [id number] Author: AMOS FLOYD MD Service: ? Author Type: Physician Type: Progress Notes Filed: 08/29/2024 11:26 Note Text: This note was created using Postmatesriter. Subjective Linda Peralta is a 79 year old female here with daughter. She was doing better. Blood pressure was elevating now. Her enterprise application analyst, Dr. Gregory, did not need to call in a medication to raise her blood pressure. Edema was improving. Dysuria resolved. She was scheduled to see cardiac surgeons in [facility] next week for possible TAVR. Review of Systems Constitutional: Positive for fatigue. Negative for chills and fever. Respiratory: Negative for shortness of breath. Cardiovascular: Positive for leg swelling. Negative for chest pain and palpitations. Genitourinary: Negative for difficulty urinating and dysuria. ACTIVE PROBLEM LIST Disorder of Autonomic Nervous [...] use: No Current Outpatient Medications Medication Sig apixaban (ELIQUIS) 5 mg (74 tabs) Take 10 mg by mouth two times a day. ipratropium bromide (ATROVENT) 42 mcg (0.06 %) nasal spray Use 2 sprays in the nose four times daily. hydrocortisone (CORTEF) 10 mg tablet Take 2 tablets by mouth every morning AND 1 tablet every evening. As directed per endocrinology.. Ascorbic Acid 1,000 mg tablet Take 1,000 mg by mouth daily at bedtime. Methenamine Hippurate (HIPREX) 1 gram tablet Take 1 g by mouth daily at bedtime. simvastatin (ZOCOR) 20 mg tablet Take 1 tablet by mouth daily at bedtime. nitroglycerin sublingual (NITROQUICK) 0.4 mg SL tablet Dissolve 1 tablet under the tongue every 5 minutes as needed. acetaminophen (TYLENOL) 325 mg tablet Take 650 mg by mouth every 6 hours as needed. No current facility-administered medications for this visit. Objective BP 135/83 (BP Site: Left Arm, BP Position: Sitting, BP Cuff Size: Large Adult) Pulse 71 Resp 20 Wt 71.4 kg (157 lb 6.5 oz) BMI 28.79 kg/m? Physical Exam Constitutional: General: She is not in acute distress. Cardiovascular: Heart sounds: S1 normal and S2 normal. Murmur (at base) heard. Systolic murmur is present with a grade of 2/6. Pulmonary: Breath sounds: Normal breath sounds. Musculoskeletal: General: No tenderness. Right lower le+ Pitting Edema present. Left lower le+ Pitting Edema present. Neurological: General: No focal deficit present. Mental Status: She is alert. Comments: Ambulatory with cane. Latest Ref Rng 08/29/2024 GLUCOSE UA (POCT) Negative mg/dL Negative BILIRUBIN UA (POCT) Negative Negative KETONE UA (POCT) Negative mg/dL Negative SPECIFIC GRAVITY UA (POCT) 1.005 - 1.030 1.020 HEMOGLOBIN/BLOOD UA (POCT) Negative Negative PH UA (POCT) 4.5 - 8.0 6.5 PROTEIN UA (POCT) Negative mg/dL 30 ! UROBILINOGEN UA (POCT) Normal E.U./dL 0.2 NITRITE UA (POCT) Negative Negative LEUKOCYTES UA (POCT) Negative Small ! COLOR UA (POCT) Yellow CLARITY UA (POCT) Clear Legend: ! Abnormal Assessment and Plan 1. Acute deep vein thrombosis (DVT) of proximal vein of both lower extremities (HCC) - ICD9: 453.41, ICD10: I82.4Y3 (primary diagnosis) - Continue lifelong anticoagulation. Call for maintenance refills. - APIXABAN 5 MG TABLET 2. Adrenal insufficiency (HCC) - ICD9: 255.41, ICD10: E27.40 - Improved. Hypotension resolved. - Continue maintenance Cortef. 3. Primary hypertension - ICD9: 401.9, ICD10: I10 - Controlled - Continue to monitor off medication. 4. History of UTI - ICD9: V13.02, ICD10: Z87.440 History of urosepsis. Recommendations will depend on culture. - UA DIP, URINE (POC) - BACTERIAL CULTURE, URINE 5. Nonrheumatic aortic valve stenosis - ICD9: 424.1, ICD10: I35.0 - To see cardiac surgery in [facility]. 6. Thyroid nodule greater than or equal to 1 cm in diameter incidentally noted on imaging study, right side. - ICD9: 241.0, ICD10: E04.1 - We reviewed this. Dr. Gregory palpated her thyroid and was aware. He recommended monitoring only. Amos Floyd [facility]07-10-2025 History of Present illness Narrative* Amos Floyd MD - 08/29/2024 10:54 AM EDT This note was created using NoteWriter. Subjective Linda Peralta is a 79 year old female here with daughter. She was doing better. Blood pressure was elevating now. Her enterprise application analyst, Dr. Gregory, did not need to call in a medication to raise her blood pressure. Edema was improving. Dysuria resolved. She was scheduled to see cardiac surgeons in [facility] next week for possible TAVR. Review of Systems Constitutional: Positive for fatigue. Negative for chills and fever. Respiratory: Negative for shortness of breath. Cardiovascular: Positive for leg swelling. Negative for chest pain and palpitations. Genitourinary: Negative for difficulty urinating and dysuria. ACTIVE PROBLEM LIST Disorder of Autonomic Nervous [...] use: No Current Outpatient Medications Medication Sig apixaban (ELIQUIS) 5 mg (74 tabs) Take 10 mg by mouth two times a day. ipratropium bromide (ATROVENT) 42 mcg (0.06 %) nasal spray Use 2 sprays in the nose four times daily. hydrocortisone (CORTEF) 10 mg tablet Take 2 tablets by mouth every morning AND 1 tablet every evening. As directed per endocrinology.. Ascorbic Acid 1,000 mg tablet Take 1,000 mg by mouth daily at bedtime. Methenamine Hippurate (HIPREX) 1 gram tablet Take 1 g by mouth daily at bedtime. simvastatin (ZOCOR) 20 mg tablet Take 1 tablet by mouth daily at bedtime. nitroglycerin sublingual (NITROQUICK) 0.4 mg SL tablet Dissolve 1 tablet under the tongue every 5 minutes as needed. acetaminophen (TYLENOL) 325 mg tablet Take 650 mg by mouth every 6 hours as needed. No current facility-administered medications for this visit. Objective BP 135/83 (BP Site: Left Arm, BP Position: Sitting, BP Cuff Size: Large Adult) Pulse 71 Resp 20 Wt 71.4 kg (157 lb 6.5 oz) BMI 28.79 kg/m Physical Exam Constitutional: General: She is not in acute distress. Cardiovascular: Heart sounds: S1 normal and S2 normal. Murmur (at base) heard. Systolic murmur is present with a grade of 2/6. Pulmonary: Breath sounds: Normal breath sounds. Musculoskeletal: General: No tenderness. Right lower le+ Pitting Edema present. Left lower le+ Pitting Edema present. Neurological: General: No focal deficit present. Mental Status: She is alert. Comments: Ambulatory with cane. Latest Ref Rng 08/29/2024 GLUCOSE UA (POCT) Negative mg/dL Negative BILIRUBIN UA (POCT) Negative Negative KETONE UA (POCT) Negative mg/dL Negative SPECIFIC GRAVITY UA (POCT) 1.005 - 1.030 1.020 HEMOGLOBIN/BLOOD UA (POCT) Negative Negative PH UA (POCT) 4.5 - 8.0 6.5 PROTEIN UA (POCT) Negative mg/dL 30 ! UROBILINOGEN UA (POCT) Normal E.U./dL 0.2 NITRITE UA (POCT) Negative Negative LEUKOCYTES UA (POCT) Negative Small ! COLOR UA (POCT) Yellow CLARITY UA (POCT) Clear Legend: ! Abnormal Assessment and Plan 1. Acute deep vein thrombosis (DVT) of proximal vein of both lower extremities (HCC) - ICD9: 453.41, ICD10: I82.4Y3 (primary diagnosis) - Continue lifelong anticoagulation. Call for maintenance refills. - APIXABAN 5 MG TABLET 2. Adrenal insufficiency (HCC) - ICD9: 255.41, ICD10: E27.40 - Improved. Hypotension resolved. - Continue maintenance Cortef. 3. Primary hypertension - ICD9: 401.9, ICD10: I10 - Controlled - Continue to monitor off medication. 4. History of UTI - ICD9: V13.02, ICD10: Z87.440 History of urosepsis. Recommendations will depend on culture. - UA DIP, URINE (POC) - BACTERIAL CULTURE, URINE 5. Nonrheumatic aortic valve stenosis - ICD9: 424.1, ICD10: I35.0 - To see cardiac surgery in [facility]. 6. Thyroid nodule greater than or equal to 1 cm in diameter incidentally noted on imaging study, right side. - ICD9: 241.0, ICD10: E04.1 - We reviewed this. Dr. Gregory palpated her thyroid and was aware. He recommended monitoring only. Amos Floyd MD documented [facility] NoteHNO ID: [id number] Author: ANNEMARIE READ RN Service: ? Author Type: Registered Nurse Type: Progress Notes Filed: 08/22/2024 12:44 Note Text: Transitional Care Management (TCM) Follow-Up Note PCP Update / Actionable Items N/A - No specialty updates needed Patient Source: In-Network Discharge Follow-up outreach: TCM enrolled patient Outreach Summary: Called and spoke with the patient She is still experiencing urinary urgency. Denies burning with urination or fever/chills. Also continues to notice swelling in her legs. States the swelling has increased slightly since starting Macrobid. Denies shortness of breath or a rash. Advised her to keep her legs elevated when sitting. She has continued to monitor her BP. Her BP today was 128/88 and HR was 77. States her BP was slightly more elevated a few days ago at 145/92. Confirmed upcoming appointment with PCP on 08/29/24. Denies any further questions or concerns. Contact: Contact made with patient: Yes Spoke to: Patient Validation: Validated the person spoken to is actively involved in the patient's care. The patient was identified by Name and Date of . I'd like to get an update on how you're doing since our last phone call. Is now a good time to talk? Yes Symptoms: Are you feeling about the same, better or worse since leaving the hospital? Better Weekly Outreach: 1st Outreach Medications: Do you have any questions about taking your medications, including which medications you should be on, or do you need refills on your medications? No Patient Questions / Concerns: Do you have any questions related to your discharge? No Appointment / TCM Follow-Up: Have you had a follow-up visit with your Primary Care Provider or Specialist since you were discharged? Yes Do you need any assistance with scheduling or changing your follow-up appointments? Patient already has an appointment scheduled EDUCATION: N/A Annemarie Read RN August 22, 2024 12:43 [facility]07-03-2025 History of Present illness Narrative* Annemarie Read, ROSS - 08/22/2024 12:34 PM EDT Transitional Care Management (TCM) Follow-Up Note PCP Update / Actionable Items N/A - No specialty updates needed Patient Source: In-Network Discharge Follow-up outreach: TCM enrolled patient Outreach Summary: Called and spoke with the patient She is still experiencing urinary urgency. Denies burning with urination or fever/chills. Also continues to notice swelling in her legs. States the swelling has increased slightly since starting Macrobid. Denies shortness of breath or a rash. Advised her to keep her legs elevated when sitting. She has continued to monitor her BP. Her BP today was 128/88 and HR was 77. States her BP was slightly more elevated a few days ago at 145/92. Confirmed upcoming appointment with PCP on 08/29/24. Denies any further questions or concerns. Contact: Contact made with patient: Yes Spoke to: Patient Validation: Validated the person spoken to is actively involved in the patient's care. The patient was identified by Name and Date of . I'd like to get an update on how you're doing since our last phone call. Is now a good time to talk? Yes Symptoms: Are you feeling about the same, better or worse since leaving the hospital? Better Weekly Outreach: 1st Outreach Medications: Do you have any questions about taking your medications, including which medications you should be on, or do you need refills on your medications? No Patient Questions / Concerns: Do you have any questions related to your discharge? No Appointment / TCM Follow-Up: Have you had a follow-up visit with your Primary Care Provider or Specialist since you were discharged? Yes Do you need any assistance with scheduling or changing your follow-up appointments? Patient alreadyhas an appointment scheduled EDUCATION: N/A Annemarie Read RN August 22, 2024 12:43 PM documented in this encounterOhio[facility]25 NotePatient Outreach ([facility]) LINDA PERALTA ([id number]) 1945 F Date Time Provider Department 08/22/24 ANNEMARIE READ During your visit today, we recorded the following information about you: Annemarie Read RN 08/22/2024 12:44 PM Signed Transitional Care Management (TCM) Follow-Up Note PCP Update / Actionable Items N/A - No specialty updates needed Patient Source: In-Network Discharge Follow-up outreach: TCM enrolled patient Outreach Summary: Called and spoke with the patient She is still experiencing urinary urgency. Denies burning with urination or fever/chills. Also continues to notice swelling in her legs. States the swelling has increased slightly since starting Macrobid. Denies shortness of breath or a rash. Advised her to keep her legs elevated when sitting. She has continued to monitor her BP. Her BP today was 128/88 and HR was 77. States her BP was slightly more elevated a few days ago at 145/92. Confirmed upcoming appointment with PCP on 08/29/24. Denies any further questions or concerns. Contact: Contact made with patient: Yes Spoke to: Patient Validation: Validated the person spoken to is actively involved in the patient's care. The patient was identified by Name and Date of . I'd like to get an update on how you're doing since our last phone call. Is now a good time to talk? Yes Symptoms: Are you feeling about the same, better or worse since leaving the hospital? Better Weekly Outreach: 1st Outreach Medications: Do you have any questions about taking your medications, including which medications you should be on, or do you need refills on your medications? No Patient Questions / Concerns: Do you have any questions related to your discharge? No Appointment / TCM Follow-Up: Have you had a follow-up visit with your Primary Care Provider or Specialist since you were discharged? Yes Do you need any assistance with scheduling or changing your follow-up appointments? Patient already has an appointment scheduled EDUCATION: N/A Annemarie Read RN August 22, 2024 12:43 PM Allergies As of Date: 08/22/2024 Noted Allergy Reaction CIPRO (CIPROFLOXACIN) 07/22/2009 Comments: rash with 500mg dose PENICILLINS 06/17/2002 Comments: rash Date Reviewed: 08/14/2024 Reviewed by: Isha Wright LPN - Fully Assessed Prescriptions as of 08/22/2024 - nitrofurantoin monohydrate and macrocrystal (MACROBID) 100 mg capsule Take 1 capsule by mouth two times a day for 7 days. - apixaban (ELIQUIS) 5 mg (74 tabs) Take 10 mg by mouth two times a day. - ipratropium bromide (ATROVENT) 42 mcg (0.06 %) nasal spray Use 2 sprays in the nose four times daily. - hydrocortisone (CORTEF) 10 mg tablet Take 2 tablets by mouth every morning AND 1 tablet every evening. As directed per endocrinology.. - Ascorbic Acid 1,000 mg tablet Take 1,000 mg by mouth daily at bedtime. - Methenamine Hippurate (HIPREX) 1 gram tablet Take 1 g by mouth daily at bedtime. - simvastatin (ZOCOR) 20 mg tablet Take 1 tablet by mouth daily at bedtime. - nitroglycerin sublingual (NITROQUICK) 0.4 mg SL tablet Dissolve 1 tablet under the tongue every 5 minutes as needed. - acetaminophen (TYLENOL) 325 mg tablet Take 650 mg by mouth every 6 hours as needed. 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 She voices understanding. Ama Diaz RN [facility]06-30-[facility] Miscellaneous Notes* Telephone Encounter - Ama Diaz RN - 08/19/2024 6:30 PM EDT Pt's daughter called and is notified of providers message and instructions. She voices understanding. Ama Diaz RN * Telephone Encounter - Amos Floyd MD - 08/19/2024 5:44 PM EDT The following approved medication requests have been transmitted electronically. Requested Prescriptions Signed Prescriptions Disp Refills nitrofurantoin monohydrate and macrocrystal (MACROBID) 100 mg capsule 14 capsule 0 Sig: Take 1 capsule by mouth two times a day for 7 days. Authorizing Provider: AMOS FLOYD Hold methenamine hippurate one tablet at bedtime prescribed by urology, while taking nitrofurantoin. Resume after antibiotic is done. Amos Floyd MD * Telephone Encounter - Va Aguayo RN - 08/19/2024 3:11 PM EDT Patient's daughter Souleymane Lopez calling in. Pt was seen by Dr. Floyd last week on 08/14/24 forhospital follow up. Daughter Souleymane states patient completed her 5 days of keflex for UTI that the hospital discharged her with last week and pt continues with urinary pressure. She is also having urinary incontinence which she does not typically have, per daughter. Weakness continues but not severe. Daughter states she does not believe pt has a fever, no chills, no nausea or confusion. Daughter states she is concerned that patient may become septic again. 1) Daughter asking Dr. Floyd to advise on pt's recent abnormal urine culture from 08/14/24. 2) Asking if PCP wishes to order another antibiotic? Please advise daughter Souleymane [phone]. documented in this encounterOhio[facility]06-30-2025 Telephone encounter Note * Telephone Encounter - Amos Floyd MD - 08/19/2024 5:44 PM EDT The following approved medication requests have been transmitted electronically. Requested Prescriptions Signed Prescriptions Disp Refills nitrofurantoin monohydrate and macrocrystal (MACROBID) 100 mg capsule 14 capsule 0 Sig: Take 1 capsule by mouth two times a day for 7 days. Authorizing Provider: AMOS FLOYD Hold methenamine hippurate one tablet at bedtime prescribed by urology, while taking nitrofurantoin. Resume after antibiotic is done. Amos Floyd MD [facility]06-30-[facility] Telephone encounter Note* Telephone Encounter - Va Aguayo RN - 08/19/2024 3:11 PM EDT Patient's daughter Souleymane Lopez calling in. Pt was seen by Dr. Floyd last week on 08/14/24 forhospital follow up. Daughter Souleymane states patient completed her 5 days of keflex for UTI that the hospital discharged her with last week and pt continues with urinary pressure. She is also having urinary incontinence which she does not typically have, per daughter. Weakness continues but not severe. Daughter states she does not believe pt has a fever, no chills, no nausea or confusion. Daughter states she is concerned that patient may become septic again. 1) Daughter asking Dr. Floyd to advise on pt's recent abnormal urine culture from 08/14/24. 2) Asking if PCP wishes to order another antibiotic? Please advise daughter Souleymane [phone]. [facility] NoteHNO ID: [id number] Author: ANNEMARIE READ RN Service: ? Author Type: Registered Nurse Type: Progress Notes Filed: 08/15/2024 10:28 Note Text: Transition Care Management (TCM) Initial Outreach PCP Update / Actionable Items HRTIC TCM Home Visit Referral Source of Stratification: [facility] Hospital Admission Status: Discharged Readmission Risk Score: N/A Patient's zip code: [address] Is zip code within program service area: No Patient meets program referral criteria: No Patient does not qualify for High Risk TCM Home Visit program due to: Readmission Risk Score does not meet criteria Disposition: Patient does not qualify for HRTIC, will provide TCM outreach follow-up for 30-days Patient Source: Prk-hp-Tbzzqiy (OON) Discharge Outreach Summary: Called and spoke with the patient She reports she is doing better Still experiencing some pressure with urination and BLE pain. She is keeping her legs elevated and is taking Tylenol PRN. Her daughter is picking up her prescription for Tramadol today. Reviewed new, changed, and stopped medications. Patient is monitoring her BP and states her reading this morning was 123/80. Confirmed follow up appointment with PCP on 08/29/24. Denies any questions or concerns at this time. Patient discharged from [facility] Discharge date: 08/09/24 Admitted for: Acute cystitis AND DVT Readmission Risk: N/A Value-Based Contract: Pattie STORM Contact: Contact made with patient: Yes Hi, my name is Annemarie Read RN and I am calling from the [facility] on behalf of your Primary Care Provider, Amos Floyd MD. I understand you were recently in the hospital, so I am calling to check in with you to ensure you are feeling well now that you are home. May I ask you a few questions related to your hospital stay and well-being? Yes Spoke to: Patient Validation: Validated the person spoken to is actively involved in the patient's care. The patient was identified by Name and Date of . Symptoms: Are you feeling about the same, better or worse since leaving the hospital? Better Medications: Do you have any questions about taking your medications, including which medications you should be on, or do you need refills on your medications? No Medication Review: Partial mediation review completed, per patient preference Discharge Instructions: Your Discharge Instructions / After Visit Summary (AVS) are important in guiding you through the recovery process. Do you have any questions related to your discharge instructions? Yes Discussed the patient's questions and/or concerns. If applicable, the appropriate Team/Provider updated in FYI box. Home Care: Were you discharged with home care? No Equipment: Do you have all the necessary equipment and supplies needed at your home? Not applicable Social: Your mental health is as important to us as your physical health. Would you mind answering a few questions on this topic? Yes On the Storyboard review: Food Insecurity, Transportation, Depression, Housing, and Financial Strain: Complete any SDOHs, listed above, if not addressed in the past 3 months. If all SDOHs, listed above, have been addressed within the last 3 months, confirm responses and update any SDOHs that have changed. Action Taken: No needs verbalized. No action required. Follow-Up Appointment: [Appointment / TCM Follow-up within 14 days] I would like to help you schedule a hospital follow-up virtual or telephone visit with your PCP. This is a great way for you to connect with your provider to ensure you have safely transitioned home. If you are agreeable, I will send your request to a clinical services professional who will contact and assist you with that appointment. This will give you an opportunity to ask any questions or address any concerns you may have with your PCP. Inform the patient that if they have any questions or concerns prior to that appointment, to call their PCP's office right away. Appointment Action: No action required, patient completed appointment. Education details: Patient and family educated on issues/questions related to reason for admission, transition of care topics, and follow-up needed upon discharge. Annemarie Read RN August 15, 2024 10:26 [facility]06-26-2025 History of Present illness Narrative* Annemarie Read RN - 08/15/2024 10:14 AM EDT Transition Care Management (TCM) Initial Outreach PCP Update / Actionable Items HRTIC TCM Home Visit Referral Source of Stratification: [facility] Hospital Admission Status: Discharged Readmission Risk Score: N/A Patient's zip code: [address] Is zip code within program service area: No Patient meets program referral criteria: No Patient does not qualify for High Risk TCM Home Visit program due to: Readmission Risk Score does not meet criteria Disposition: Patient does not qualify for HRTIC, will provide TCM outreach follow-up for 30-days Patient Source: Ipt-mk-Zggtfei (OON) Discharge Outreach Summary: Called and spoke with the patient She reports she is doing better Still experiencing some pressure with urination and BLE pain. She is keeping her legs elevated and is taking Tylenol PRN. Her daughter is picking up her prescription for Tramadol today. Reviewed new, changed, and stopped medications. Patient is monitoring her BP and states her reading this morning was 123/80. Confirmed follow up appointment with PCP on 08/29/24. Denies any questions or concerns at this time. Patient discharged from [facility] Discharge date: 08/09/24 Admitted for: Acute cystitis & DVT Readmission Risk: N/A Value-Based Contract: Pattie STORM Contact: Contact made with patient: Yes Hi, my name is Annemarie Read RN and I am calling [facility] the [facility] on behalf of your Primary Care Provider, Amos Floyd MD. I understand you were recently in the hospital, so I am calling to check in with you to ensure you are feeling well now that you are home. May I ask you a few questions related to your hospital stay and well-being? Yes Spoke to: Patient Validation: Validated the person spoken to is actively involved in the patient's care. The patient was identified by Name and Date of . Symptoms: Are you feeling about the same, better or worse since leaving the hospital? Better Medications: Do you have any questions about taking your medications, including which medications you should be on, or do you need refills on your medications? No Medication Review: Partial mediation review completed, per patient preference Discharge Instructions: Your Discharge Instructions / After Visit Summary (AVS) are important in guiding you through the recovery process. Do you have any questions related to your discharge instructions? Yes Discussed the patient's questions and/or concerns. If applicable, the appropriate Team/Provider updated in FYI box. Home Care: Were you discharged with home care? No Equipment: Do you have all the necessary equipment and supplies needed at your home? Not applicable Social: Your mental health is as important to us as your physical health. Would you mind answering a few questions on this topic? Yes On the Storyboard review: Food Insecurity, Transportation, Depression, Housing, and Financial Strain: Complete any SDOHs, listed above, if not addressed in the past 3 months. If all SDOHs, listed above, have been addressed within the last 3 months, confirm responses and update any SDOHs that have changed. Action Taken: No needs verbalized. No action required. Follow-Up Appointment: [Appointment / TCM Follow-up within 14 days] I would like to help you schedule a hospital follow-up virtual or telephone visit with your PCP. This is a great way for you to connect with your provider to ensure you have safely transitioned home.If you are agreeable, I will send your request to a clinical services professional who will contact and assist you with that appointment. This will give you an opportunity to ask any questions or address any concerns youmay have with your PCP. Inform the patient that if they have any questions or concerns prior to that appointment, to call their PCP's office right away. Appointment Action: No action required, patient completed appointment. Education details: Patient and family educated on issues/questions related to reason for admission,transition of care topics, and follow-up needed upon discharge. Annemarie Read RN August 15, 2024 10:26 AM documented in this encounterOhio[facility]06-26-2025 NotePatient Outreach ([facility]) LINDA PERALTA ([id number]) 1945 F Date Time Provider Department 08/15/24 ANNEMARIE READ AMBDARSHANAG During your visit today, we recorded the following information about you: Annemarie Read RN 08/15/2024 10:28 AM Signed Transition Care Management (TCM) Initial Outreach PCP Update / Actionable Items HRTIC TCM Home Visit Referral Source of Stratification: [facility] Hospital Admission Status: Discharged Readmission Risk Score: N/A Patient's zip code: [address] Is zip code within program service area: No Patient meets program referral criteria: No Patient does not qualify for High Risk TCM Home Visit program due to: Readmission Risk Score does not meet criteria Disposition: Patient does not qualify for HRTIC, will provide TCM outreach follow-up for 30-days Patient Source: Fdj-yn-Ruqgzgz (OON) Discharge Outreach Summary: Called and spoke with the patient She reports she is doing better Still experiencing some pressure with urination and BLE pain. She is keeping her legs elevated and is taking Tylenol PRN. Her daughter is picking up her prescription for Tramadol today. Reviewed new, changed, and stopped medications. Patient is monitoring her BP and states her reading this morning was 123/80. Confirmed follow up appointment with PCP on 08/29/24. Denies any questions or concerns at this time. Patient discharged from [facility] Discharge date: 08/09/24 Admitted for: Acute cystitis AND DVT Readmission Risk: N/A Value-Based Contract: Pattie STORM Contact: Contact made with patient: Yes Hi, my name is Annemarie Read RN and I am calling from the [facility] on behalf of your Primary Care Provider, Amos Floyd MD. I understand you were recently in the hospital, so I am calling to check in with you to ensure you are feeling well now that you are home. May I ask you a few questions related to your hospital stay and well-being? Yes Spoke to: Patient Validation: Validated the person spoken to is actively involved in the patient's care. The patient was identified by Name and Date of . Symptoms: Are you feeling about the same, better or worse since leaving the hospital? Better Medications: Do you have any questions about taking your medications, including which medications you should be on, or do you need refills on your medications? No Medication Review: Partial mediation review completed, per patient preference Discharge Instructions: Your Discharge Instructions / After Visit Summary (AVS) are important in guiding you through the recovery process. Do you have any questions related to your discharge instructions? Yes Discussed the patient's questions and/or concerns. If applicable, the appropriate Team/Provider updated in FYI box. Home Care: Were you discharged with home care? No Equipment: Do you have all the necessary equipment and supplies needed at your home? Not applicable Social: Your mental health is as important to us as your physical health. Would you mind answering a few questions on this topic? Yes On the Storyboard review: Food Insecurity, Transportation, Depression, Housing, and Financial Strain: Complete any SDOHs, listed above, if not addressed in the past 3 months. If all SDOHs, listed above, have been addressed within the last 3 months, confirm responses and update any SDOHs that have changed. Action Taken: No needs verbalized. No action required. Follow-Up Appointment: [Appointment / TCM Follow-up within 14 days] I would like to help you schedule a hospital follow-up virtual or telephone visit with your PCP. This is a great way for you to connect with your provider to ensure you have safely transitioned home. If you are agreeable, I will send your request to a clinical services professional who will contact and assist you with that appointment. This will give you an opportunity to ask any questions or address any concerns you may have with your PCP. Inform the patient that if they have any questions or concerns prior to that appointment, to call their PCP's office right away. Appointment Action: No action required, patient completed appointment. Education details: Patient and family educated on issues/questions related to reason for admission, transition of care topics, and follow-up needed upon discharge. Annemarie Read RN August 15, 2024 10:26 AM Allergies As of Date: 08/15/2024 Noted Allergy Reaction CIPRO (CIPROFLOXACIN) 07/22/2009 Comments: rash with 500mg dose PENICILLINS 06/17/2002 Comments: rash Date Reviewed: 08/14/2024 Reviewed by: Isha Wright LPN - Fully Assessed Prescriptions as of 08/15/2024 - apixaban (ELIQUIS) 5 mg (74 tabs) Take 10 mg by mouth two times a day. - traMADol (ULTRAM) 50 mg tablet Take 1 tablet by mouth three times a day as needed for pain for up to 5 days. - ipra (more content not included)...[facility]06-25-2025 Instructions* Patient Instructions* Amos Floyd MD - 08/14/2024 12:13 PM EDT HYDRATE WELL. MESSAGE BLOOD PRESSURE READINGS IN 1-2 DAYS. DO NOT TAKE LISINOPRIL OR AMLODIPINE (HIGH BLOOD PRESSURE MEDICATIONS) TRAMADOL NEEDED FOR PAIN NOT BETTER WITH TYLENOL. documented [facility] NoteHNO ID: [id number] Author: AMOS FLOYD MD Service: ? Author Type: Physician Type: Progress Notes Filed: 08/15/2024 07:19 Note Text: This note was created using Postmatesriter. Subjective Patient presents with: Hospital F/U Linda Peralta is a 79 year old female here with her daughter. She had a heart catheterization 08/05/24 showing minimal CAD and severe . She was being referred for TAVR to a specialist in [facility]. She developed weakness 08/07/24 and was found to be bradycardic and hypotensive. She was admitted with concerns for UTI, urosepsis, non STEMI, and Plumas's. She was treated with IV fluids, antibiotic for Klebsiella aerogenes UTI, and IV hydrocortisone. 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 She was transitioned to apixiban and discharged on Bactrim. Lisinopril and warfarin were discontinued. She was better, but not back to baseline. She still had some dysuria, and they were concerned about continuing the steroid taper as her blood pressure was still low. Confounding the situation was she brought in a bottle of amlodipine, which she may be taking unaware this was for hypertension. Amlodipine may have been discontinued prior to admission as it was not listed in her admission record. She was also limited by moderate leg pain from edema. Review of Systems Constitutional: Positive for fatigue. Negative for appetite change and fever. Respiratory: Negative for chest tightness and shortness of breath. Cardiovascular: Positive for leg swelling. Negative for chest pain and palpitations. Gastrointestinal: Negative for abdominal pain, blood in stool, diarrhea, nausea and vomiting. Genitourinary: Negative for difficulty urinating and dysuria. Musculoskeletal: Positive for myalgias (calves). Neurological: Negative for dizziness, syncope, light-headedness and headaches. ACTIVE PROBLEM LIST Disorder of [...] use: No Current Outpatient Medications Medication Sig apixaban (ELIQUIS) 5 mg (74 tabs) Take 10 mg by mouth two times a day. ipratropium bromide (ATROVENT) 42 mcg (0.06 %) nasal spray Use 2 sprays in the nose four times daily. hydrocortisone (CORTEF) 10 mg tablet Take 2 tablets by mouth every morning AND 1 tablet every evening. As directed per endocrinology.. Ascorbic Acid 1,000 mg tablet Take 1,000 [...] the tongue every 5 minutes as needed. acetaminophen (TYLENOL) 325 mg tablet Take 650 mg by mouth every 6 hours as needed. warfarin (COUMADIN) 2.5 mg tablet Take 2.5 mg by mouth. 2.5 mg daily except 5 mg on Mondays (Patient not taking: Reported on 08/14/2024) No current facility-administered medications for this visit. Objective BP 98/64 Pulse 88 Temp 36.8 ?C (98.2 ?F) (Temporal) Resp 18 Wt 71.2 kg (156 lb 15.5 oz) BMI 28.71 kg/m? Physical Exam Constitutional: General: She is not in acute distress. Appearance: She is not ill-appearing or diaphoretic. HENT: Mouth/Throat: Mouth: Mucous membranes are moist. Eyes: Conjunctiva/sclera: Conjunctivae normal. Cardiovascular: Rate and Rhythm: Normal rate. Rhythm irregular. Heart sounds: S2 normal. Murmur heard. Systolic murmur is present with a grade of 2/6. Pulmonary: Breath sounds: Normal breath sounds. Abdominal: Tenderness: There is no abdominal tenderness. Musculoskeletal: Right lower le+ Pitting Edema present. Left lower le+ Pitting Edema present. Neurological: General: No focal deficit present. Motor: Weakness present. Assessment and Plan ASSESSMENT/PLAN: 1. Acute deep vein thrombosis (DVT) of proximal vein of both lower extremities (HCC) - ICD9: 453.41, ICD10: I82.4Y3 (primary diagnosis) - Elevate legs. Diuretic not recommended due to hypot (more content not included)...[facility]06-25-2025 History of Present illness Narrative* Amos Floyd MD - 08/14/2024 11:39 AM EDT This note was created using Rachioter. Subjective Patient presents with: [facility] F/U Linda Peralta is a 79 year old female here with her daughter. She had a heart catheterization 08/05/24 showing minimal CAD and severe . She was being referred for TAVR to a specialist in [facility]. She developed weakness 08/07/24 and was found to be bradycardic and hypotensive. She was admitted with concerns for UTI, urosepsis, non STEMI, and Plumas's. She was treated with IV fluids, antibiotic for Klebsiella aerogenes UTI, and IV hydrocortisone. 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 She was transitioned to apixiban and discharged on Bactrim. Lisinopril and warfarin were discontinued. She was better, but not back to baseline. She still had some dysuria, and they were concerned aboutcontinuing the steroid taper as her blood pressure was still low. Confounding the situation was shebrought in a bottle of amlodipine, which she may be taking unaware this was for hypertension. Amlodipine may have been discontinued prior to admission as it was not listed in her admission record. She was also limited by moderate leg pain from edema. Review of Systems Constitutional: Positive for fatigue. Negative for appetite change and fever. Respiratory: Negative for chest tightness and shortness of breath. Cardiovascular: Positive for leg swelling. Negative for chest pain and palpitations. Gastrointestinal: Negative for abdominal pain, blood in stool, diarrhea, nausea and vomiting. Genitourinary: Negative for difficulty urinating and dysuria. Musculoskeletal: Positive for myalgias (calves). Neurological: Negative for dizziness, syncope, light-headedness and headaches. ACTIVE PROBLEM LIST Disorder of [...] use: No Current Outpatient Medications Medication Sig apixaban (ELIQUIS) 5 mg (74 tabs) Take 10 mg by mouth two times a day. ipratropium bromide (ATROVENT) 42 mcg (0.06 %) nasal spray Use 2 sprays in the nose four times daily. hydrocortisone (CORTEF) 10 mg tablet Take 2 tablets by mouth every morning AND 1 tablet every evening. As directed per endocrinology.. Ascorbic Acid 1,000 mg tablet Take 1,000 [...] the tongue every 5 minutes as needed. acetaminophen (TYLENOL) 325 mg tablet Take 650 mg by mouth every 6 hours as needed. warfarin (COUMADIN) 2.5 mg tablet Take 2.5 mg by mouth. 2.5 mg daily except 5 mg on Mondays (Patient not taking: Reported on 08/14/2024) No current facility-administered medications for this visit. Objective BP 98/64 Pulse 88 Temp 36.8 C (98.2 F) (Temporal) Resp 18 Wt 71.2 kg (156 lb 15.5 oz) BMI28.71 kg/m Physical Exam Constitutional: General: She is not in acute distress. Appearance: She is not ill-appearing or diaphoretic. HENT: Mouth/Throat: Mouth: Mucous membranes are moist. Eyes: Conjunctiva/sclera: Conjunctivae normal. Cardiovascular: Rate and Rhythm: Normal rate. Rhythm irregular. Heart sounds: S2 normal. Murmur heard. Systolic murmur is present with a grade of 2/6. Pulmonary: Breath sounds: Normal breath sounds. Abdominal: Tenderness: There is no abdominal tenderness. Musculoskeletal: Right lower le+ Pitting Edema present. Left lower le+ Pitting Edema present. Neurological: General: No focal deficit present. Motor: Weakness present. Assessment and Plan ASSESSMENT/PLAN: 1. Acute deep vein thrombosis (DVT) of proximal vein of both lower extremities (HCC) - ICD9: 453.41, ICD10: I82.4Y3 (primary diagnosis) - Elevate legs. Diuretic not recommended due to hypotension. - APIXABAN 5 MG (74 TABS) TABLETS IN A DOSE PACK - TRAMADOL 50 MG TABLET. New medication. Risks and benefits reviewed. 2. Other specified hypotension - ICD9: 458.8, ICD10: I95.89 - Moris's confounded by amlodipine not clearly accounted for. - Patient instructed to stop amlodipine and continue to stay off lisinopril. 3. Adrenal insufficiency (HCC) - ICD9: 255.41, ICD10: E27.40 - Continue steroid taper for now. - Daughter will monitor BP and message in 1-2 days if still low. 4. Nonrheumatic aortic valve stenosis - ICD9: 424.1, ICD10: I35.0 - [facility] 5. Acute cystitis without hematuria - ICD9: 595.0, ICD10: N30.00 Recheck. - UA DIP, URINE (POC) - BACTERIAL CULTURE, URINE Amos Floyd MD documented [facility] Discharge summary [facility] Medical Records Department [address] [place] [address] Discharge Summary 08/09/24 1437 MR#: [id number] Acct: [id number] Name: LINDA PERALTA Rep #:[id number] : 1945 79 From: Jairo Mitchell DO PCP: Dr. Amos Floyd MD Status:A DM IN [facility] Prov[facility] Date of Admission: 08/07/24 Primary Care Physician: Dr. Amos Floyd MD Reason For Visit: UTI, SEPSIS, HYPOTENSION WITH ORTHOSTATIC Diagnosis Discharge Diagnosis (1) Acute cystitis without hematuria: Status: Acute Code(s): N30.00 - Acute cystitis without hematuria Medications at Discharge Home Medications acetaminophen 500 mg tablet 1,000 mg (2 x 500 mg) PO Q6H PRN Pain Score 1-10 04/08/20 denosumab 60 mg/mL subcutaneous syringe (Prolia) 60 mg subcut [id number] #1 mL 11/24/22 nitroglycerin 0.4 mg sublingual tablet 0.4 mg sublingual Q5-15M PRN Cardiac/Chest Pain #25 tabs 07/26/23 methenamine hippurate 1 gram tablet 1 g PO QHS 04/29/24 Held on 08/09/24. Instructions: Resume on 08/14/24. simvastatin 20 mg tablet 20 mg PO QHS #90 tabs 07/23/24 ascorbic acid (vitamin C) 1,000 mg tablet 1,000 mg PO QHS 08/07/24 apixaban 5 mg (74 tabs) tablets in a dose pack See Rx Instructions PO .COMPLEX #74 tabs 08/09/24 hydrocortisone 10 mg tablet 10 mg PO TID #27 tabs 08/09/24 hydrocortisone 10 mg tablet 10 mg PO TID #90 tabs 08/09/24 sulfamethoxazole 800 mg-trimethoprim 160 mg tablet (Bactrim DS) 1 tab PO BID #10tabs 08/09/24 Hospital Course Operations None Procedures None Summary of Care Provided Minutes Spent on Discharge: 40 Hospital Course: This is a an 79-year-old female presents with UTI and was noted to be hypotensive. 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 Patient was started on stress dose steroid and and antibio ticsand has since improved. Patient recently held off on her warfarin due to a cardiac catheterization. Did have a duplex performed here that showed bilateralacute DVTs. Patient had been on warfarin for approximately 17 years and had been told that she need to be on lifelong anticoagulation. Verified that she does not have any other indication of needing warfarin such as mechanical heart valves which she does not. Discussed with her that she may have a hypercoagulable state as she does have a daughter who has had a history of DVT and PEs and unclear if she actually has some hypercoagulable state but I was around concerned that that may be the case as patient had been off warfarin for 5 daysprior and then had not had a therapeutic INR prior to initiating apixabanon today. So I discussed with she and her other daughter, who does not have anyclotting disorder and has been checked for hypercoagulable states which she doesnot. And about the indication for Eliquis and his ease of use and not having toadjust diet nor out to have any lab work for this. They agreed to continue withtaking apixaban which patient had already received earlier today. Patient also be on steroid taper to wean her down to her 10 mg 3 times daily. It is written as 20 mg daily but patient states that for the past6 months she has been on hydrocortisone 10 mg 3 times daily. Patient also be on Bactrim to completeher course of antibiotics for the UTI. Patient's creatinine clearance is greater than 30 so we willhave her taking Bactrim DS 1 tablet twice daily for the next 5 days to complete a 7-day course of antibiotics. Physical Exam Const alert and no apparent distress Resp normal respiratory effort, no retractions, no use of accessory muscles and clearto auscultation bilaterally Cardio regular rate and regular rhythm Cardio Narrative: 2 out of 6 systolic ejection murmur at the right upper sternal border GI normal to inspection, nondistended, normoactive bowel sounds, soft to palpation,non-tender and non-distended Neuro Sensorium / Orientation: awake and alert Weight / BMI Weight Weight: 72.8 kg Body Mass Index (BMI) 29.5 ABG / Lab / Microbiology Data 08/09/24 06:47 08/09/24 06:47 Laboratory: Laboratory Results - last 24 hr 08/09/24 06:47: WBC 11.5 H, RBC 4.42, Hgb 13.3, Hct 40.4, MCV 91.4, MCH 30.1, MCHC 32.9, RDW Std Deviation 53.7 H, RDW Coeff of Slava 15.9 H, Plt Count 118 L, MPV 12.0, Immature Gran % (Auto) 1.600 H, Neut % (Auto) 81.0 H, Lymph % (Auto) 7.4 L, Burnet % (Auto) 9.5, Eos % (Auto) 0.2, Baso % (Auto) 0.3, Absolute Neuts (auto) 9.3 H, Absolute Lymphs (auto) 0.85, Nucleated RBC % 0, Sodium 137, Potassium 4.9, Chloride 111 H, Carbon Dioxide 15.0 L, Anion Gap 11, BUN 41 H, Creatinine 1.35 H, Estim Creat Clear Calc 30.53 L, Est GFR (MDRD) Non-Af 39 L, BUN/Creatinine Ratio 30.7 H, Glucose 145 H, Calcium 8.5 Microbiology: Microbiology 08/07/24 18:06 Urine, Random Urine Culture - Final Klebsiella aerogenes D/C Instructions Discharge Diet: No restrictions DC O2, CPAP, BIPAP Needs Home O2 Discharge instructions: No Meaningful Use Info Meaningful Use Meaningful Use Diagnoses (Choose all that apply): None applicable Ischemic Stroke Statin Dosing Therapy Reference: STATIN DOSE THERAPY REFERENCE: * Patients > 75 years receive moderate or high dose statin therapy. * Patients 75 years or YOUNGER should receive HIGH intensity statin dose unless contraindicated. You will be required to document reason for non-treatment if statin daily dose does not meet guidelines. HIGH DOSE STATIN THERAPY DAILY Atorvastatin > than or = to 40 mg Rosuvastatin > than or = to 20 mg Amlodipine + Atorvastatin > than or = to 2.5/40 mg Ezetimibe + Simvastatin 10/80 mg Simvastatin 80mg Discharge Plan Admission Admit Date/Time: 08/07/24 20:16 Primary Reason for Your Visit: Urinary tract infection. Attending Provider: Jairo Mitchell Primary Care Provider: Amos Floyd Consulting Providers: Nixon Silverio; Ted Toro Instructions Additional Instructions / Restrictions: Your blood pressure was low due to being on chronic steroids with your Plumas'sdisease and you will be on a prednisone taper over the next 9 days to your normal dosing. Please follow the instructions. Additionally you have a urinarytract infection which she will be on Bactrim for the next 5 days. As we discussed about changing your anticoagulation because you do have what appears to be DVTs in your lower extremities that you will be changed over from warfarin(Coumadin) to apixaban. The apixaban dosing will change after about a week. Please follow the instructions. If you do have any increased swelling in your legs, increased shortness of breath, notify your physician or return to the emergency room. Discharge Orders/Prescriptions Prescriptions: New apixaban 5 mg (74 tabs) tablets,dose pack See Rx Instructions .ROUTE .COMPLEX Qty: 74 0RF Rx Instructions: orally per package directions hydrocortisone 10 mg tablet 10 mg PO TID Qty: 27 0RF Rx Instructions: 4 tabs TID for 3 days, then 3 tabs TID for 3 days, then 2 tabs TID for 3 days. sulfamethoxazole-trimethoprim [Bactrim DS] 800-160 mg tablet 1 tab PO BID Qty: 10 0RF Continued Prolia 60 mg/mL syringe 60 mg subcut [id number] Qty: 1 1RF nitroglycerin 0.4 mg tablet, sublingual 0.4 mg SUBLINGUAL Q5-15M PRN (Reason: Cardiac/Chest Pain) Qty: 25 3RF simvastatin 20 mg tablet 20 mg PO QHS Qty: 90 3RF acetaminophen 500 MG tablet 1,000 mg PO Q6H PRN (Reason: Pain Score 1-10) 0RF ascorbic acid (vitamin C) 1,000 mg tablet 1,000 mg PO QHS Changed hydrocortisone 10 mg tablet 10 mg PO TID Qty: 90 6RF Rx Instructions: resume once you have completed the hydrocortisone taper. Held methenamine hippurate 1 gram tablet 1 g PO QHS Hold Instructions: Resume on 08/14/24. Discontinued lisinopril 5 mg tablet 5 mg PO QDAY Qty: 90 3RF warfarin 2.5 mg tablet 2.5 mg PO [...] 07/19/24 Rx Instructions: daily or as directed Referrals / Follow Up: Amos Floyd MD [Primary Care Provider] - Within 2 Weeks Disposition Disposition (needs filled in before D/C Order can be placed): Home, Self Care Charges/Coding Visit Charges Inpatient E&M: 99009 Disch Hosp >30min 08/09/24 6041 Cosigner Signature (if applicable): CC: Dr. Jairo Mitchell DO; Dr. Amos Floyd MD~ Signed [facility]06-20-2025 [facility] Medical Records Department [address] [place] [id number] Discharge Summary 08/09/24 1437 MR#: [id number] Acct: [id number] Name: LINDA PERALTA Rep #: [id number] : 1945 79 From: Jairo Mitchell DO PCP: Dr. Amos Floyd MD Status:ADM IN Location: [place] [address] Providers Date of Admission: 08/07/24 Primary Care Physician: Dr. Amos Floyd MD Reason For Visit: UTI, SEPSIS, HYPOTENSION WITH ORTHOSTATIC Diagnosis Discharge Diagnosis (1) Acute cystitis without hematuria: Status: Acute Code(s): N30.00 - Acute cystitis without hematuria Medications at Discharge Home Medications acetaminophen 500 mg tablet 1,000 mg (2 x 500 mg) PO Q6H PRN Pain Score 1-10 04/08/20 denosumab 60 mg/mL subcutaneous syringe (Prolia) 60 mg subcut [id number] #1 mL 11/24/22 nitroglycerin 0.4 mg sublingual tablet 0.4 mg sublingual Q5-15M PRN Cardiac/Chest Pain #25 tabs 07/26/23 methenamine hippurate 1 gram tablet 1 g PO QHS 04/29/24 Held on 08/09/24. Instructions: Resume on 08/14/24. simvastatin 20 mg tablet 20 mg PO QHS #90 tabs 07/23/24 ascorbic acid (vitamin C) 1,000 mg tablet 1,000 mg PO QHS 08/07/24 apixaban 5 mg (74 tabs) tablets in a dose pack See Rx Instructions PO .COMPLEX #74 tabs 08/09/24 hydrocortisone 10 mg tablet 10 mg PO TID #27 tabs 08/09/24 hydrocortisone 10 mg tablet 10 mg PO TID #90 tabs 08/09/24 sulfamethoxazole 800 mg-trimethoprim 160 mg tablet (Bactrim DS) 1 tab PO BID #10 tabs 08/09/24 Hospital Course Operations None Procedures None Summary of Care Provided Minutes Spent on Discharge: 40 Hospital Course: This is a an 79-year-old female presents with UTI and was noted to be hypotensive. 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 Patient was started on stress dose steroid and and antibiotics and has since improved. Patient recently held off on her warfarin due to a cardiac catheterization. 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 Patient had been on warfarin for approximately 17 years and had been told that she need to be on lifelong anticoagulation. Verified that she does not have any other indication of needing warfarin such as mechanical heart valves which she does not. Discussed with her that she may have a hypercoagulable state as she does have a daughter who has had a history of DVT and PEs and unclear if she actually has some hypercoagulable state but I was around concerned that that may be the case as patient had been off warfarin for 5 days prior and then had not had a therapeutic INR prior to initiating apixaban on today. So I discussed with she and her other daughter, who does not have any clotting disorder and has been checked for hypercoagulable states which she does not. And about the indication for Eliquis and his ease of use and not having to adjust diet nor out to have any lab work for this. They agreed to continue with taking apixaban which patient had already received earlier today. Patient also be on steroid taper to wean her down to her 10 mg 3 times daily. It is written as 20 mg daily but patient states that for the past 6 months she has been on hydrocortisone 10 mg 3 times daily. Patient also be on Bactrim to complete her course of antibiotics for the UTI. Patient's creatinine clearance is greater than 30 so we will have her taking Bactrim DS 1 tablet twice daily for the next 5 days to complete a 7-day course of antibiotics. Physical Exam Const alert and no apparent distress Resp normal respiratory effort, no retractions, no use of accessory muscles and clear to auscultation bilaterally Cardio regular rate and regular rhythm Cardio Narrative: 2 out of 6 systolic ejection murmur at the right upper sternal border GI normal to inspection, nondistended, normoactive bowel sounds, soft to palpation, non-tender and non- distended Neuro Sensorium / Orientation: awake and alert Weight / BMI Weight Weight: 72.8 kg Body Mass Index (BMI) 29.5 ABG / Lab / Microbiology Data 08/09/24 06:47 08/09/24 06:47 Laboratory: Laboratory Results - last 24 hr 08/09/24 06:47: WBC 11.5 H, RBC 4.42, Hgb 13.3, Hct 40.4, MCV 91.4, MCH 30.1, MCHC 32.9, RDW Std Deviation 53.7 H, RDW Coeff of Slava 15.9 H, Plt Count 118 L, MPV 12.0, Immature Gran % (Auto) 1.600 H , Neut % (Auto) 81.0 H, Lymph % (Auto) 7.4 L, Burnet % (Auto) 9.5, Eos % (Auto) 0.2, Baso % (Auto) 0.3, Absolute Neuts (auto) 9.3 H, Absolute Lymphs (auto) 0.85, Nucleated RBC % 0, Sodium 137, Potassium 4.9, Chloride 111 H, Carbon Dioxide 15.0 L, Anion Gap 11, BUN 41 H, Creatinine 1.35 H, E stim Creat Clear Calc 30.53 L, Est GFR (MDRD) Non-Af 39 L, BUN/Creatinine Ratio 30.7 H, Glucose 145 H, Calcium 8.5 Microbiology: Microbi (more content not included)...[facility]06-19-2025 Progress note Author Ted Toro [facility] Note Date/Time August 08, 2024 10:4 6am [facility] Medical Records Department [address] [place] [address] Progress Note - Hospitalist 08/08/24 1028 MR#: [id number] Acct: [id number] Name: LINDA PERALTA Rep #:[id number] : 1945 79 From: Ted charles MD PCP: Dr. Amos Floyd MD Status:A DM IN Location: [place] [address] Subjective Subjective doing well, feels better than when she came in. Blood pressure stable can transfer out of the unit today Objective Data Objective Data Vital Signs: Vital Signs Temp Pulse Resp BP Pulse Ox O2 Del Method 97.8 F 88 17 116/85 H 98 Room Air 08/08/24 10:05 08/08/24 10:05 08/08/24 10:05 08/08/24 10:05 08/08/24 10:05 08/08/24 10:05 Oxygen Delivery Method Room Air Weight: 152 lb 6.4 oz Body Mass Index (BMI) 27.8 Intake & Output: Intake and Output for Last 24 Hours 08/07/24 08/08/24 08/09/24 03:59 03:59 03:59 Intake Total 3050 / 3050 1000 / 1000 Output Total 300 / 300 250 / 250 Balance 2750 / 2750 750 / 750 Lab / Micro Data 08/07/24 16:06 08/07/24 16:06 Labs: Laboratory Results - last 24 hr 08/07/24 16:06: WBC 15.1 H, RBC 5.11, Hgb 15.2 H, Hct 46.5, MCV 91.0, MCH 29.7, MCHC 32.7, RDW Std Deviation 52.4 H, RDW Coeff of Slava 15.6 H, Plt Count 193, MPV11.9, Immature Gran % (Auto) 1.600 H, Neut % (Auto) 71.7 H, Lymph % (Auto) 15.0 L, Burnet % (Auto) 9.7, Eos % (Auto) 1.1, Baso % (Auto) 0.9, Absolute Neuts (auto)10.8 H, Absolute Lymphs (auto) 2.26, Nucleated RBC % 0, Sodium 137, Potassium 4.5, Chloride 107, Carbon Dioxide 14.6 L, Anion Gap 15, BUN 43 H, Creatinine 1.59 H, Estim Creat Clear Calc 25.08 L, Est GFR (MDRD) Non-Af 32 L, BUN/Creatinine Ratio 27.3 H, Glucose 139 H, Calcium 9.9, Iron 55, TIBC 295, Iron Saturation 19.0, Unsaturated IBC 240, Ferritin 107, Total Bilirubin 0.52, AST 27, ALT 20, Alkaline Phosphatase 102, Troponin T High Sens 60 H*, Total Protein 6.3, Albumin 4.1, Globulin 2.2, Albumin/Globulin Ratio 1.8, TSH 1.030, Cortisol PM Sample 12.00 H 08/07/24 18:06: Troponin T Hi Sens 2 Hr 55 H*, Urine Color Yellow, Urine ClarityClear, Urine pH 6.0, Ur Specific Iota 1.015, Urine Protein 30 H, Urine Glucose (UA) Normal, Urine Ketones Negative, Urine Occult Blood 150 H, Urine Nitrite Positive H, Urine Bilirubin Negative, Urine Urobilinogen Normal, Ur Leukocyte Esterase 25 H, Urine RBC 0-5 SEEN, Urine WBC 5-10 SEEN, Ur Squamous Epith Cells 0 SEEN, Urine Bacteria 3+, Urine Mucus 0 SEEN 08/07/24 20:50: PT 14.9, INR 1.1, Lactic Acid < 1.0, Troponin T Hi Sens 4Hr 52 H 08/07/24 22:00: Blood Type O POSITIVE, Antibody Screen NEGATIVE Micro: Microbiology 08/07/24 18:06 Urine, Random Urine Culture - Preliminary Gram negative chacho Radiography Diagnostic Testing: Radiology Impression Abdomen/Pelvis CT 08/07/24 20:24 IMPRESSION: Possible urinary bladder wall thickening which is poorly visualized due to decompression around a Jarrell catheter. Correlate with urinalysis to exclude cystitis. Right kidney simple cyst. Otherwise, normal appearance of the right kidney. Surgically absent left kidney. Infrarenal IVC filter. If not actively managed by Interventional Radiology, consider a consult for management. Colonic diverticulosis. Reading Location: [place] [address] Physical Exam Narrative General: Alert, Oriented x3, Cooperative, No apparent distress HEENT: Atraumatic, PERRLA, EOMI, Normocephalic Oral: Moist Mucosa Neck: Supple, No JVD Lungs: Diminished, Normal air movement, No rhonchi, No wheeze, No rales Cardiovascular: Regular rate, Regular Rhythm, Normal S1, Normal S2, No murmurs Abdomen: Soft, Non Tender, Non-Distended, No Hepato-splenomegaly Extremities: No edema, Capillary Refill Less than 3 Seconds Skin: No rashes, No breakdown Musculoskeletal: No Tenderness to Palpation of Joints or Extremities Neurological: No focal neurological deficits, moves all extremities, Sensory exam intact to light touch and pain Psych/Mental Status: Normal Affect, Appropriate Assessment & Plan Assessment/Plan (1) Acute cystitis without hematuria: PLAN: Plan 1. 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 She did not have sepsis on admission based on insurance criteria ? Continue with Rocephin ? 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 Will transfer out of the unit and send to the progressive care unit ? Urine cultures are pending ? Hemoglobin is 15.2, will trend, limited concern for a GI bleed at this time, Hemoccult is pending ? She did have an elevated troponin, she is asymptomatic therefore an insignificant finding 2. Essential HTN/HLD/CAD status post NSTEMI ? Blood pressures are stable ? Can likely resume lisinopril in 24 to 48 hours ? Continue with her home statin ? Monitor make adjustments as necessary ? She had left heart cath on 08/05/2024 with normal coronary arteries and EF of 60%. She does have moderate to severe aortic stenosis therefore I do recommend outpatient follow-up with cardiology for evaluation for possible TAVR 3. History of PE and recurrent DVTs ? She is currently on Coumadin with an INR of 1.1 ? Coumadin has been held given concern for possible GI bleed ? Will place on therapeutic Lovenox as this will be easier to reverse if she does have a positive Hemoccult otherwise can transition back to being on her Coumadin ? This is complicated by history of renal cancer and she is status post partial nephrectomy 4. CKD 3 ? Renal function is at baseline ? Will continue to monitor ? 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 Amos Floyd MD Status:A DM IN Location: [place] [address] Subjective Subjective doing well, feels better than when she came in. Blood pressure stable can transfer out of the unit today Objective Data Objective Data Vital Signs: Vital Signs Temp Pulse Resp BP Pulse Ox O2 Del Method 97.8 F 88 17 116/85 H 98 Room Air 08/08/24 10:05 08/08/24 10:05 08/08/24 10:05 08/08/24 10:05 08/08/24 10:05 08/08/24 10:05 Oxygen Delivery Method Room Air Weight: 152 lb 6.4 oz Body Mass Index (BMI) 27.8 Intake & Output: Intake and Output for Last 24 Hours 08/07/24 08/08/24 08/09/24 03:59 03:59 03:59 Intake Total 3050 / 3050 1000 / 1000 Output Total 300 / 300 250 / 250 Balance 2750 / 2750 750 / 750 Lab / Micro Data 08/07/24 16:06 08/07/24 16:06 Labs: Laboratory Results - last 24 hr 08/07/24 16:06: WBC 15.1 H, RBC 5.11, Hgb 15.2 H, Hct 46.5, MCV 91.0, MCH 29.7, MCHC 32.7, RDW Std Deviation 52.4 H, RDW Coeff of Slava 15.6 H, Plt Count 193, MPV11.9, Immature Gran % (Auto) 1.600 H, Neut % (Auto) 71.7 H, Lymph % (Auto) 15.0 L, Burnet % (Auto) 9.7, Eos % (Auto) 1.1, Baso % (Auto) 0.9, Absolute Neuts (auto)10.8 H, Absolute Lymphs (auto) 2.26, Nucleated RBC % 0, Sodium 137, Potassium 4.5, Chloride 107, Carbon Dioxide 14.6 L, Anion Gap 15, BUN 43 H, Creatinine 1.59 H, Estim Creat Clear Calc 25.08 L, Est GFR (MDRD) Non-Af 32 L, BUN/Creatinine Ratio 27.3 H, Glucose 139 H, Calcium 9.9,Iron 55, TIBC 295, Iron Saturation 19.0, Unsaturated IBC 240, Ferritin 107, Total Bilirubin 0.52, AST 27, ALT 20, Alkaline Phosphatase 102, Troponin T High Sens 60 H*, Total Protein 6.3, Albumin 4.1,Globulin 2.2, Albumin/Globulin Ratio 1.8, TSH 1.030, Cortisol PM Sample 12.00 H 08/07/24 18:06: Troponin T Hi Sens 2 Hr 55 H*, Urine Color Yellow, Urine ClarityClear, Urine pH 6.0, Ur Specific Iota 1.015, Urine Protein 30 H, Urine Glucose (UA) Normal, Urine Ketones Negative, Urine Occult Blood 150 H, Urine Nitrite Positive H, Urine Bilirubin Negative, Urine Urobilinogen Normal, Ur Leukocyte Esterase 25 H, Urine RBC 0-5 SEEN, Urine WBC 5-10 SEEN, Ur Squamous Epith Cells 0 SEEN, Urine Bacteria 3+, Urine Mucus 0 SEEN 08/07/24 20:50: PT 14.9, INR 1.1, Lactic Acid < 1.0, Troponin T Hi Sens 4Hr 52 H 08/07/24 22:00: Blood Type O POSITIVE, Antibody Screen NEGATIVE Micro: Microbiology 08/07/24 18:06 Urine, Random Urine Culture - Preliminary Gram negative chacho Radiography Diagnostic Testing: Radiology Impression Abdomen/Pelvis CT 08/07/24 20:24 IMPRESSION: Possible urinary bladder wall thickening which is poorly visualized due to decompression around a Jarrell catheter. Correlate with urinalysis to exclude cystitis. Right kidney simple cyst. Otherwise, normal appearance of the right kidney. Surgically absent left kidney. Infrarenal IVC filter. If not actively managed by Interventional Radiology, consider a consult for management. Colonic diverticulosis. Reading Location: [place] [address] Physical Exam Narrative General: Alert, Oriented x3, Cooperative, No apparent distress HEENT: Atraumatic, PERRLA, EOMI, Normocephalic Oral: Moist Mucosa Neck: Supple, No JVD Lungs: Diminished, Normal air movement, No rhonchi, No wheeze, No rales Cardiovascular: Regular rate, Regular Rhythm, Normal S1, Normal S2, No murmurs Abdomen: Soft, Non Tender, Non-Distended, No Hepato-splenomegaly Extremities: No edema, Capillary Refill Less than 3 Seconds Skin: No rashes, No breakdown Musculoskeletal: No Tenderness to Palpation of Joints or Extremities Neurological: No focal neurological deficits, moves all extremities, Sensory exam intact to light touch and pain Psych/Mental Status: Normal Affect, Appropriate Assessment & Plan Assessment/Plan (1) Acute cystitis without hematuria: PLAN: Plan 1. 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 She did not have sepsis on admission based on insurance criteria ? Continue with Rocephin ? 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 Will transfer out of the unit and send to the progressive care unit ? Urine cultures are pending ? Hemoglobin is 15.2, will trend, limited concern for a GI bleed at this time, Hemoccult is pending ? She did have an elevated troponin, she is asymptomatic therefore an insignificant finding 2. Essential HTN/HLD/CAD status post NSTEMI ? Blood pressures are stable ? Can likely resume lisinopril in 24 to 48 hours ? Continue with her home statin ? Monitor make adjustments as necessary ? She had left heart cath on 08/05/2024 with normal coronary arteries and EF of 60%. She does have moderate to severe aortic stenosis therefore I do recommend outpatient follow-up with cardiology for evaluation for possible TAVR 3. History of PE and recurrent DVTs ? She is currently on Coumadin with an INR of 1.1 ? Coumadin has been held given concern for possible GI bleed ? Will place on therapeutic Lovenox as this will be easier to reverse if she does have a positive Hemoccult otherwise can transition back to being on her Coumadin ? This is complicated by history of renal cancer and she is status post partial nephrectomy 4. CKD 3 ? Renal function is at baseline ? Will continue to monitor ? She does have decreased renal function at baseline because of her history of renal cancer and apparently she donated her left kidney to her brother DVT: Therapeutic Lovenox Charges/Coding Visit Charges Inpatient E&M: 80779 Subs Hosp L2 08/08/24 1046 Cosigner Signature (if applicable): CC: ~ Signed [facility]06-19-2025 History and physical note Author Nixon Brizuela [facility] Note Date/Time August 08, 2024 6:55 am [facility] Medical Records Department [address] [facility] [place] [address] H&P Exam - Hospitalist 08/07/241930 MR#: [id number] Acct: [id number] Name: LINDA PERALTA Rep #:[id number] : 1945 79 From: Nixon Sanchez DO PCP: Dr. Amos Floyd MD Status:A DM IN Location: ICU CVICU20 1-1 HPI - General General Date of Admission: 08/07/24 Date of Service: 08/07/24 Chief Complaint: Hypotension and Bradycardia. HPI Narrative LINDA PERALTA, is a 79 F with a past medical history of essential hypertension; on lisinopril, hyperlipidemia; on simvastatin, overweight; with BMI of 27.4 thisadmission, CAD; s/p NSTEMI (2009) on prn SL NTG, history of severe aortic stenosis, MVP, history of PE and recurrent DVT's; on warfarin, Moris's diseasewith orthostatic hypotension and frequent falls; on hydrocortisone 20 mg PO daily, history of renal cancer; s/p partial Right nephrectomy, history of Left nephrectomy to donate kidney to her brother, history of pyelonephritis, CKD; stage III, history of cystocele with rectocele; s/p bladder repair surgery ~20 years ago, history of ARIEL, history of atopic dermatitis, osteopenia; on denosumab, OA; on prn acetaminophen and recent LHC done here by Dr. Marte on August 05, 2024 with LVEF ~60% and mild luminal irregularities with [id number] plus grade II mitral valve insufficiency who presents to [facility] ER complaining of hypotension and bradycardia. Ms. Peralta reports her symptoms began a few hours prior to arrival when she spontaneously developed severe bradycardia in the ~29 bpm range. She also admits to associated fatigue and malaise along with dark-colored stool with orthostatic lightheadedness plus increased urinary frequency and pressure sensation in the suprapubic region. She states she has been off of her warfarinfor 5 days in preparation for her recent C with patient recently just having 1dose yesterday. She denies dysuria, hematuria or similar previous episodes. She also denies related fever, chills, vomiting, diarrhea, constipation, chest pain, palpitations, heart racing, headache or rash. In the ER she was noted to have a UA; positive for evidence of Acute Cystitis; without hematuria with a corresponding Leukocytosis of 15.1K with Left-shift of 1.6% present on admissionconcerning for Sepsis complicated by elevated BUN/creatinine ratio of 27.3 present on admission suggestive of Dehydration compounded by mildly elevated Troponin T of 60 ng/L present on admission likely due to Acute Cardiac Strain from Severe Bradycardia with Orthostatic Lightheadedness with dark stools on warfarin worrisome for possible GI bleed and she was then admitted to the ICU for ongoing care for a stay that is expected to extend beyond 2 midnights. [facility] Medical History MVP (mitral valve prolapse) Aortic stenosis Hypokalemia Elevated serum creatinine Acute prerenal azotemia History of kidney cancer 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 Hypercalcemia Frequent falls Closed head injury (03/20/20) Hypoglycemia (03/20/20) Acute electrocardiogram changes Atopic dermatitis Osteopenia determined by x-ray History of pulmonary embolism shelter (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 Orthostatic hypotension Chronic [...] denosumab 60 mg/mL subcutaneous 60 mg subcut [id number] #1 mL 11/24/22 Unknown Rx syringe (Prolia) [...] Other History of DVT (deep vein thrombosis) shelter (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 Surgical History History [...] safe at home: Yes additional social history: [employer]- Retired patient is retired ROS ROS Narrative Review of Systems: Constitutional: Patient denies fever or chills. Eyes: Patient denies changes in vision or discharge from eyes. ENT: Patient denies runny nose, sore throat or ear pain. Resp: Patient denies SOB or cough. CV: Patient admits to orthostatic lightheadedness but she denies chest pain, palpitations, heart racing or LE edema. GI: Patient admits to dark stools but she denies abdominal pain, vomiting, diarrhea or constipation. : Patient admits to darkened urine with pain over the suprapubic region as perHPI. She denies dyuria or hematuria. MSK: Patient admits to generalized weakness but she denies arthralgias or myalgias. Skin: Patient denies rash, abscess, wounds or jaundice. Psych: Patient denies symptoms of uncontrolled depression or anxiety. Neuro: Patient admits to generalized weakness but she denies headache or paresthesias. Allergy: Patient denies lip swelling, tongue swelling or urticaria. Hematology: Patient admits to easy bleeding and bruisability on warfarin. Endocrinology: Patient denies heat or cold intolerance. 14 point ROS otherwise negative except for positives noted above in HPI. Vital Signs Vital Signs Vital Signs: 08/07/24 15:49 08/07/24 16:00 08/07/24 [...] Ox 98 Oxygen Delivery Method Room Air Weight Weight: 149 lb 14.629 oz Body Mass Index (BMI) 27.3 Results Medical Records Data Attestation: I reviewed the patient's medical records Lab / Micro Data Attestation: I reviewed the patient's lab results. 08/07/24 16:06 08/07/24 16:06 Labs: Laboratory Results - last 24 hr 08/07/24 16:06: WBC 15.1 H, RBC 5.11, Hgb 15.2 H, Hct 46.5, MCV 91.0, MCH 29.7, MCHC 32.7, RDW Std Deviation 52.4 H, RDW Coeff of Slava 15.6 H, Plt Count 193, MPV11.9, Immature Gran % (Auto) 1.600 H, Neut % (Auto) 71.7 H, Lymph % (Auto) 15.0 L, Burnet % (Auto) 9.7, Eos % (Auto) 1.1, Baso % (Auto) 0.9, Absolute Neuts (auto)10.8 H, Absolute Lymphs (auto) 2.26, Nucleated RBC % 0, Sodium 137, Potassium 4.5, Chloride 107, Carbon Dioxide 14.6 L, Anion Gap 15, BUN 43 H, Creatinine 1.59 H, Estim Creat Clear Calc 25.08 L, Est GFR (MDRD) Non-Af 32 L, BUN/Creatinine Ratio 27.3 H, Glucose 139 H, Calcium 9.9, Total Bilirubin 0.52, AST 27, ALT 20, Alkaline Phosphatase 102, Troponin T High Sens 60 H*, Total Protein 6.3, Albumin 4.1, Globulin 2.2, Albumin/Globulin Ratio 1.8 08/07/24 18:06: Troponin T Hi Sens 2 Hr 55 H*, Urine Color Yellow, Urine ClarityClear, Urine pH 6.0, Ur Specific Iota 1.015, Urine Protein 30 H, Urine Glucose (UA) Normal, Urine Ketones Negative, Urine Occult Blood 150 H, Urine Nitrite Positive H, Urine Bilirubin Negative, Urine Urobilinogen Normal, Ur Leukocyte Esterase 25 H, Urine RBC 0-5 SEEN, Urine WBC 5-10 SEEN, Ur Squamous Epith Cells 0 SEEN, Urine Bacteria 3+, Urine Mucus 0 SEEN Imaging [facility] Imaging Services [address] [place] [address] Abdomen/Pelvis without Cont MR#: [id number] Acct: [id number] Name: LINDA PERALTA Rep #: [id number] : 1945 F 79 From: Omar Carrillo MD PCP: Dr. Amos Floyd MD Status: ADM IN Study: Abdomen/Pelvis without Cont Date of Exam: 08/07/24 Exam# [id number] Ordering Dr: Nixon Silverio DO PROCEDURE: ABDOMEN/PELVIS WITHOUT CONT 08/07/2024 REASON FOR EXAM: UTI WITH SEPSIS. EVALUATE FOR PYELO. TECHNIQUE: ABDOMEN/PELVIS WITHOUT CONT Noncontrast technique limits evaluation of the abdominal and pelvic viscera. Coronal and Sagittal reconstruction series were provided. One or more dose reduction techniques were used (e.g., Automated exposure control, adjustment of the mA and/or kV according to patient size, use of iterative reconstruction technique). ORAL CONTRAST TYPE: None. AMOUNT: mL COMPARISON: 12/07/2023. FINDINGS: Lung bases are clear. The peripheral soft tissues are unremarkable. Degenerative changes of the spine. Moderate atherosclerosis. Normal caliber abdominal aorta. IVC filter within the caval lumen. The liver is unremarkable. Absent gallbladder. The pancreas is unremarkable. Splenic calcification which may represent prior granulomatous infection. The adrenals unremarkable. Right kidney simple cysts. No right hydroureteronephrosis. Surgically absent left kidney. Urinary bladder is collapsed around a Jarrell catheter. Possible urinary bladder wall thickening. Colonic diverticulosis. No surrounding inflammatory changes. Dense colonic stool. Normal caliber large and small bowel. CT/Abdomen/Pelvis without Cont IMPRESSION: Possible urinary bladder wall thickening which is poorly visualized due to decompression around a Jarrell catheter. Correlate with urinalysis to exclude cystitis. Right kidney simple cyst. Otherwise, normal appearance of the right kidney. Surgically absent left kidney. Infrarenal IVC filter. If not actively managed by Interventional Radiology, consider a consult for management. Colonic diverticulosis. Reading Location: [id number] CC: Dr. Nixon Silverio DO; Dr. Amos Floyd MD ~ Doll Wigs Hackler: Signed Assessment & Plan Assessment/Plan (1) Acute cystitis without hematuria: (2) Sepsis: QUALIFIERS: Sepsis acute organ dysfunction status: without acute organ dysfunction Sepsis type: sepsis due to unspecified organism Qualified Code(s): A41.9 - Sepsis, unspecified organism (3) Leukocytosis: QUALIFIERS: Leukocytosis type: bandemia Qualified Code(s): D72.825 - Bandemia (4) Plumas's disease: (5) Dehydration: (6) Bradycardia: (7) Elevated troponin: (8) Dark stools: (9) Aortic stenosis: QUALIFIERS: Cardiac valve disease etiology: etiology unspecified Qualified Code(s): I35.0 - Nonrheumatic aortic (valve) stenosis (10) MVP (mitral valve prolapse): (11) Overweight (BMI 25.0-29.9): PLAN: Plan 1. UA; positive for evidence of Acute Cystitis; without hematuria with a corresponding Leukocytosis of 15.1K with Left-shift of 1.6% present on admissionconcerning for Sepsis in the setting of known Plumas's disease with suspected superimposed Adrenal Insufficiency with orthostatic hypotension and frequent falls; on hydrocortisone 20 mg PO daily - Admit to ICU for treatment under the Sepsis protocol. Continue IV ceftriaxone begun in the ER and await culture and sensitivity data. Serialize lactate with level yet to be obtained. Give promethazine prn nausea and vomiting. Give acetaminophen prn for [id number] (level 1- 5/10) pain or fever. Give morphine IV prn for severe (level 6-10/10) pain. Finally, we will maintain supplemental hydrocortisone 50 mg IV q. 8 hours. 2. Elevated BUN/creatinine ratio of 27.3 present on admission suggestive of Dehydration complicating #1 - Volume resuscitate and recheck renal indices dailyto follow trend. 3. Elevated Troponin T of 60 ng/L present on admission likely due to Acute Cardiac Strain from Severe Bradycardia with Orthostatic Lightheadedness compounding #1 & #2 - Serialize troponin and treat supportively. 4. Dark stools on warfarin worrisome for possible GI bleed adding to the medical complexity of #1 - #3 - Keep NPO. Hemoccult stools. Type & Screen blood. Check INR since one has yet to be obtained this admission. 5. Recent LHC done here by Dr. Marte on August 05, 2024 with LVEF ~60% and mild luminal irregularities with [id number] plus grade II mitral valve insufficiency with MVP - We will consult [facility] to see patient thisadmission for further recommendations with help appreciated in advance. 6. Overweight; with BMI of 27.4 this admission adding to the burden of disease outlined from #1 - #5 - Weight loss will be recommended. Check TSH. 7. Essential hypertension; on lisinopril - Hold scheduled antihypertensives in light of #1. 8. Hyperlipidemia; on simvastatin - Resume statin. 9. CAD; s/p NSTEMI (2009) on prn SL NTG - Hold prn SL NTG until hypotension resolves. 10. History of PE and recurrent DVT's; on warfarin - Hold warfarin with dark stools until GI bleed ruled out plus check INR since one has yet to be done thisadmission. 11. History of renal cancer; s/p partial Right nephrectomy - Noted. 12. History of Left nephrectomy to donate kidney to her brother - Noted. 13. History of pyelonephritis - Noted. Check CT scan of the abdomen and pelvisthis admission. 14. CKD; stage IIIb - Stable with serum creatinine of 1.59 mg/dL, BUN of 43 mg/dL and eGFR of 32 mL/min present on admission. 15. History of cystocele with rectocele; s/p bladder repair surgery ~20 years ago - Noted. 16. History of ARIEL - Noted. 17. History of atopic dermatitis - Stable. 18. Osteopenia; on denosumab - Restart denosumab as outpatient. 19. OA; on prn acetaminophen - Give acetaminophen prn as outlined in #1. 20. DVT prophylaxis - Awaiting INR. Start SCD's. Hold warfarin in light of #4. Total time: Approximately (but not less than) 75 minutes. Sepsis Attestation Sepsis Alert: Yes Sepsis Attestation: Agree w/Sepsis Date exam was performed: 08/07/24 Time exam was performed: 20:15 Possible Source of Sepsis: Genitourinary Sepsis Organ Dysfunction Criteria Present: SBP < 90 mmHg or MAP < 65 mmHg and SBP decrease of more than 40 mmHg Fluid Resuscitation Fluid resuscitation indicated?: Yes Fluid Resuscitation ordered: 30 ml/kg fluid bolus ordered Amount of fluid ordered: 2 Sepsis Note Date exam was performed: 08/08/24 Time exam was performed: 00:15 Sepsis Attestation: Sepsis re-evaluation was performed Response to fluids: Fluid responsive hypotension Charges/Coding Visit Charges Inpatient E&M: 99206 Init Hosp L3 08/08/24 0655 <Electronically signed by Nixon Silverio DO> Cosigner Signature (if applicable): CC: Dr. Nixon Silverio DO; Dr. Amos Floyd MD~ Signed [facility] Work Phone: [phone] 414-136906-19-2025 History and physical note [facility] Medical Records Department [address] [place] [address] H&P Exam - Hospitalist 08/07/241930 MR#: [id number] Acct: [id number] Name: LINDA PERALTA Rep #:[id number] : 1945 79 From: Nixon Sanchez DO PCP: Dr. Amos Floyd MD Status:A DM IN Location: ICU [id number] 1- HPI - General General Date of Admission: 08/07/24 Date of Service: 08/07/24 Chief Complaint: Hypotension and Bradycardia. 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 Marte on August 05, 2024 with LVEF ~60% and mild luminal irregularities with [id number] plus grade II mitral valve insufficiency who presents to [facility] ER complaining of hypotension and bradycardia. Ms. Peralta reports her symptoms began a few hours prior to arrival when she spontaneously developed severe bradycardia in the ~29 bpm range. She also admits to associated fatigue and malaise along with dark-colored stool with orthostatic lightheadedness plus increased urinary frequency and pressure sensation in the suprapubic region. She states she has been off of her warfarinfor 5 days in preparation for her recent LHC with patient recently just having 1dose yesterday. She denies dysuria, hematuria or similar previous episodes. She also denies related fever, chills, vomiting, diarrhea, constipation, chest pain, palpitations, heart racing, headache or rash. In the ER she was noted to have a UA; positive for evidence of Acute Cystitis; without hematuria with a corresponding Leukocytosis of 15.1K with Left-shift of 1.6% present on admissionconcerning for Sepsis complicated by elevated BUN/creatinine ratio of 27.3 present on admission suggestive of Dehydration compounded by mildly elevat ed Troponin T of 60 ng/L present on admission likely due to Acute Cardiac Strain from Severe Bradycardia with Orthostatic Lightheadedness with dark stools on warfarin worrisome for possible GI bleed and she was then admitted to the ICU for ongoing care for a stay that is expected to extend beyond 2midnights. 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 Eyes: Patient denies changes in vision or discharge from eyes. ENT: Patient denies runny nose, sore throat or ear pain. Resp: Patient denies SOB or cough. CV: Patient admits to orthostatic lightheadedness but she denies chest pain, palpitations, heart racing or LE edema. GI: Patient admits to dark stools but she denies abdominal pain, vomiting, diarrhea or constipation. : Patient admits to darkened urine with pain over the suprapubic region as perHPI. She denies dyuria or hematuria. MSK: Patient admits to generalized weakness but she denies arthralgias or myalgias. Skin: Patient denies rash, abscess, wounds or jaundice. Psych: Patient denies symptoms of uncontrolled depression or anxiety. Neuro: Patient admits to generalized weakness but she denies headache or paresthesias. Allergy: Patient denies lip swelling, tongue swelling or urticaria. Hematology: Patient admits to easy bleeding and bruisability on warfarin. Endocrinology: Patient denies heat or cold intolerance. 14 point ROS otherwise negative except for positives noted above in HPI. Vital Signs Vital Signs Vital Signs: 08/07/24 15:49 08/07/24 16:00 08/07/24 [...] Ox 98 Oxygen Delivery Method Room Air Weight Weight: 149 lb 14.629 oz Body Mass Index (BMI) 27.3 Results Medical Records Data Attestation: I reviewed the patient's medical records Lab / Micro Data Attestation: I reviewed the patient's lab results. 08/07/24 16:06 08/07/24 16:06 Labs: Laboratory Results - last 24 hr 08/07/24 16:06: WBC 15.1 H, RBC 5.11, Hgb 15.2 H, Hct 46.5, MCV 91.0, MCH 29.7, MCHC 32.7, RDW Std Deviation 52.4 H, RDW Coeff of Slava 15.6 H, Plt Count 193, MPV11.9, Immature Gran % (Auto) 1.600 H, Neut % (Auto) 71.7 H, Lymph % (Auto) 15.0 L, Burnet % (Auto) 9.7, Eos % (Auto) 1.1, Baso % (Auto) 0.9, Absolute Neuts (auto)10.8 H, Absolute Lymphs (auto) 2.26, Nucleated RBC % 0, Sodium 137, Potassium 4.5, Chloride 107, Carbon Dioxide 14.6 L, Anion Gap 15, BUN 43 H, Creatinine 1.59 H, Estim Creat Clear Calc 25.08 L, Est GFR (MDRD) Non-Af 32 L, BUN/Creatinine Ratio 27.3 H, Glucose 139 H, Calcium 9.9,Total Bilirubin 0.52, AST 27, ALT 20, Alkaline Phosphatase 102, Troponin T High Sens 60 H*, Total Pr otein 6.3, Albumin 4.1, Globulin 2.2, Albumin/Globulin Ratio 1.8 08/07/24 18:06: Troponin T Hi Sens 2 Hr 55 H*, Urine Color Yellow, Urine ClarityClear, Urine pH 6.0, Ur Specific Iota 1.015, Urine Protein 30 H, Urine Glucose (UA) Normal, Urine Ketones Negative, Urine Occult Blood 150 H, Urine Nitrite Positive H, Urine Bilirubin Negative, Urine Urobilinogen Normal, Ur Leukocyte Esterase 25 H, Urine RBC 0-5 SEEN, Urine WBC 5-10 SEEN, Ur Squamous Epith Cells 0 SEEN, Urine Bacteria 3+, Urine Mucus 0 SEEN Imaging [facility] Imaging Services [address] [place] [address] Abdomen/Pelvis without Cont MR#: [id number] Acct: [id number] Name: LINDA PERALTA Rep #: [id number] : 1945 F 79 From: Omar Carrillo MD PCP: Dr. Amos Floyd MD Status: ADM IN Study: Abdomen/Pelvis without Cont Date of Exam: 08/07/24 Exam# [id number] Ordering Dr: Nixon Silverio DO PROCEDURE: ABDOMEN/PELVIS WITHOUT CONT 08/07/2024 REASON FOR EXAM: UTI WITH SEPSIS. EVALUATE FOR PYELO. TECHNIQUE: ABDOMEN/PELVIS WITHOUT CONT Noncontrast technique limits evaluation of the abdominal and pelvic viscera. Coronal and Sagittal reconstruction series were provided. One or more dose reduction techniques were used (e.g., Automated exposure control, adjustment of the mA and/or kV according to patient size, use of iterative reconstruction technique). ORAL CONTRAST TYPE: None. AMOUNT: mL COMPARISON: 12/07/2023. FINDINGS: Lung bases are clear. The peripheral soft tissues are unremarkable. Degenerative changes of the spine. Moderate atherosclerosis. Normal caliber abdominal aorta. IVC filter within the caval lumen. The liver is unremarkable. Absent gallbladder. The pancreas is unremarkable. Splenic calcification which may represent prior granulomatous infection. The adrenals unremarkable. Right kidney simple cysts. No right hydroureteronephrosis. Surgically absentleft kidney. Urinary bladder is collapsed around a Jarrell catheter. Possible urinary bladder wall thickening. Colonic diverticulosis. No surrounding inflammatory changes. Dense colonic stool. Normal caliber large and small bowel. CT/Abdomen/Pelvis without Cont IMPRESSION: Possible urinary bladder wall thickening which is poorly visualized due to decompression around a Jarrell catheter. Correlate with urinalysis to exclude cystitis. Right kidney simple cyst. Otherwise, normal appearance of the right kidney. Surgically absent left kidney. Infrarenal IVC filter. If not actively managed by Interventional Radiology, consider a consult for management. Colonic diverticulosis. Reading Location: [id number] CC: Dr. Nixon Silverio DO; Dr. Amos Floyd MD ~ [employer] W[employer] Hackler: Signed Assessment & Plan Assessment/Plan (1) Acute cystitis without hematuria: (2) Sepsis: QUALIFIERS: Sepsis acute organ dysfunction status: without acute organ dysfunction Sepsis type: sepsis due to unspecified organism Qualified Code(s): A41.9 - Sepsis, unspecified organism (3) Leukocytosis: QUALIFIERS: Leukocytosis type: bandemia Qualified Code(s): D72.825 - Bandemia (4) Moris's disease: (5) Dehydration: (6) Bradycardia: (7) Elevated troponin: (8) Dark stools: (9) Aortic stenosis: QUALIFIERS: Cardiac valve disease etiology: etiology unspecified Qualified Code(s): I35.0 - Nonrheumatic aortic (valve) stenosis (10) MVP (mitral valve prolapse): (11) Overweight (BMI 25.0-29.9): PLAN: Plan 1. UA; positive for evidence of Acute Cystitis; without hematuria with a corresponding Leukocytosisof 15.1K with Left-shift of 1.6% present on admissionconcerning for Sepsis in the setting of known Moris's disease with suspected superimposed Adrenal Insufficiency with orthostatic hypotension and frequent falls; on hydrocortisone 20 mg PO daily - Admit to ICU for treatment under the Sepsis protocol. Continue IV ceftriaxone begun in the ER and await culture and sensitivity data. Serialize lactate with level yet to be obtained. Give promethazine prn nausea and vomiting. Give acetaminophen prnfor [id number] (level 1-5/10) pain or fever. Give morphine IV prn for severe (level 6-10/10) pain. Finally, we will maintain supplemental hydrocortisone 50 mg IV q. 8 hours. 2. Elevated BUN/creatinine ratio of 27.3 present on admission suggestive of Dehydration complicating #1 - Volume resuscitate and recheck renal indices dailyto follow trend. 3. Elevated Troponin T of 60 ng/L present on admission likely due to Acute Cardiac Strain from Severe Bradycardia with Orthostatic Lightheadedness compounding #1 & #2 - Serialize troponin and treat supportively. 4. Dark stools on warfarin worrisome for possible GI bleed adding to the medical complexity of #1 -#3 - Keep NPO. Hemoccult stools. Type & Screen blood. Check INR since one has yet to be obtained this admission. 5. Recent LHC done here by Dr. Marte on August 05, 2024 with LVEF ~60% and mild luminal irregularities with [id number] plus grade II mitral valve insufficiency with MVP - We will consult [facility] to see patient thisadmission for further recommendations with help appreciated in advance. 6. Overweight; with BMI of 27.4 this admission adding to the burden of disease outlined from #1 - #5 - Weight loss will be recommended. Check TSH. 7. Essential hypertension; on lisinopril - Hold scheduled antihypertensives in light of #1. 8. Hyperlipidemia; on simvastatin - Resume statin. 9. CAD; s/p NSTEMI (2009) on prn SL NTG - Hold prn SL NTG until hypotension resolves. 10. History of PE and recurrent DVT's; on warfarin - Hold warfarin with dark stools until GI bleed ruled out plus check INR since one has yet to be done thisadmission. 11. History of renal cancer; s/p partial Right nephrectomy - Noted. 12. History of Left nephrectomy to donate kidney to her brother - Noted. 13. History of pyelonephritis - Noted. Check CT scan of the abdomen and pelvisthis admission. 14. CKD; stage IIIb - Stable with serum creatinine of 1.59 mg/dL, BUN of 43 mg/dL and eGFR of 32 mL/min present on admission. 15. History of cystocele with rectocele; s/p bladder repair surgery ~20 years ago - Noted. 16. History of ARIEL - Noted. 17. History of atopic dermatitis - Stable. 18. Osteopenia; on denosumab - Restart denosumab as outpatient. 19. OA; on prn acetaminophen - Give acetaminophen prn as outlined in #1. 20. DVT prophylaxis - Awaiting INR. Start SCD's. Hold warfarin in light of #4. Total time: Approximately (but not less than) 75 minutes. Sepsis Attestation Sepsis Alert: Yes Sepsis Attestation: Agree w/Sepsis Date exam was performed: 08/07/24 Time exam was performed: 20:15 Possible Source of Sepsis: Genitourinary Sepsis Organ Dysfunction Criteria Present: SBP < 90 mmHg or MAP < 65 mmHg and SBP decrease ofmore than 40 mmHg Fluid Resuscitation Fluid resuscitation indicated?: Yes Fluid Resuscitation ordered: 30 ml/kg fluid bolus ordered Amount of fluid ordered: 2 Sepsis Note Date exam was performed: 08/08/24 Time exam was performed: 00:15 Sepsis Attestation: Sepsis re-evaluation was performed Response to fluids: Fluid responsive hypotension Charges/Coding Visit Charges Inpatient E&M: 42837 Init Hosp 08/08/24 0609 Cosigner Signature (if applicable): CC: Dr. Nixon Silverio DO; Dr. Amos Floyd MD~ Signed [facility]2025 Radiology Diagnostic study note [facility] Imaging Services [address] [place], [place] [id number] Abdomen/Pelvis without Cont MR#: [id number] Acct: [id number] Name: LINDA PERALTA Rep #: [id number] : 1945 F 79 From: Oleg Carrillo MD PCP: Dr. Amos Floyd MD Status: A DM IN Study:Abdomen/Pelvis without Cont Date of Exa m: 08/07/24 Exam# [id number] Ordering Dr: Nixon Villareal DO PROCEDURE: ABDOMEN/PELVIS WITHOUT CONT 08/07/2024 REASON FOR EXAM: UTI WITH SEPSIS. EVALUATE FOR PYELO. TECHNIQUE: ABDOMEN/PELVIS WITHOUT CONT Noncontrast technique limits evaluation of the abdominal and pelvic viscera. Coronal and Sagittal reconstruction series were provided. One or more dose reduction techniques were used (e.g., Automated exposure control, adjustment of the mA and/or kV according to patient size, use of iterative reconstruction technique). ORAL CONTRAST TYPE: None. AMOUNT: mL COMPARISON: 12/07/2023. FINDINGS: Lung bases are clear. The peripheral soft tissues are unremarkable. Degenerative changes of the spine. Moderate atherosclerosis. Normal caliber abdominal aorta. IVC filter within the caval lumen. The liver is unremarkable. Absent gallbladder. The pancreas is unremarkable. Splenic calcification which may represent prior granulomatous infection. The adrenals unremarkable. Right kidney simple cysts. No right hydroureteronephrosis. Surgically absentleft kidney. Urinary bladder is collapsed around a Jarrell catheter. Possible urinary bladder wall thickening. Colonic diverticulosis. No surrounding inflammatory changes. Dense colonic stool. Normal caliber large and small bowel. CT/Abdomen/Pelvis without Cont IMPRESSION: Possible urinary bladder wall thickening which is poorly visualized due to decompression around a Jarrell catheter. Correlate with urinalysis to exclude cystitis. Right kidney simple cyst. Otherwise, normal appearance of the right kidney. Surgically absent left kidney. Infrarenal IVC filter. If not actively managed by Interventional Radiology, consider a consult for management. Colonic diverticulosis. Reading Location: [id number] CC: Dr. Nixon Silverio DO; Dr. Amos Floyd MD ~ [employer] W[employer] Hackler: Signed [facility]06-18-2025 Discharge summary Author Obinna Uday [facility] Note Date/Time August 07, 2024 7:39 pm [facility] Medical Records Department [address] [place] [address] Emergency Department Summary 08/07/24 MR#: [id number] Acct: [id number] Name: LINDA PERALTA Rep #:[id number] : 1945 79 From: Obinna Frye MD PCP: Dr. 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 Second liter was ordered. Also has Plumas's disease and may be contributory. Will give stress dose of Solu-Cortef.) MDM MDM MDM Narrative Medical decision making narrative: Since patient is hypotensive reported dark stool will obtain CBC to assess H&H. Jarrell was placed for accurate I's and O's and fluid bolus was ordered. Because of her urinary pressure sensation a UA was ordered which can be obtained when the Jarrell is placed. BMP was obtained to assess [...] 71.7 H Lymph % (Auto) 15.0 L Burnet % (Auto) 9.7 Eos % (Auto) 1.1 [...] Clarity Clear Urine pH 6.0 Ur Specific Iota 1.015 Urine Protein 30 H Urine Glucose [...] follows: Interpretation: Sinus Tachycardia (Rate is 116. SD interval is 130 ms perQRS duration 80 ms. QT duration. 14 ms. [place] is normal. Patient has evidenceof atrial enlargement. There is also evidence of LVH. There is no acute ischemic changes.) Management Discussion w/another healthcare provider: Hospitalist and Hard Tile Setter Apprentice (Her tow motor mechanic was contacted since he sent her in.) [...] independent rotation laboratory results), Discussing w/Patient &/or Family/[place] Man, Discussing w/Consultants (Dr. 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 Call [facility] ([phone]) or report to the closest Emergency Room. Call 911 if necessary. 08/07/241938 <Electronically signed by Obinna Frye MD> Cosigner Signature (if applicable): CC: Dr. Amos Floyd MD ~ Signed [facility] Work Phone: 1(368) 785-221606-18-2025 Discharge summary [facility] Medical Records Department [address] [place] [address] Emergency Department Summary 08/07/24 MR#: [id number] Acct: [id number] Name: LINDA PERALTA Rep #:[id number] : 1945 79 From: Obinna Frye MD [...] Illness/Hospitalization: Yes (Cardiac catheterization earlier this week) [facility] Medical History MVP (mitral valve prolapse) Aortic stenosis Hypokalemia Elevated serum creatinine Acute prerenal azotemia History of kidney cancer 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 Hypercalcemia Frequent falls Closed head injury (03/20/20) Hypoglycemia (03/20/20) Acute electrocardiogram changes Atopic dermatitis Osteopenia determined by x-ray History of pulmonary embolism shelter (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 Orthostatic hypotension Chronic [...] denosumab 60 mg/mL subcutaneous 60 mg subcut [id number] #1 mL 11/24/22 Unknown Rx syringe (Prolia) [...] Other History of DVT (deep vein thrombosis) 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 Second liter was ordered. Also has Plumas's disease and may be contributory. Will give stress dose of Solu-Cortef.) MDM MDM MDM Narrative Medical decision making narrative: Since patient is hypotensive reported dark stool will obtain CBC to assess H&H. Jarrell was placed for accurate I's and O's and fluid bolus was ordered. Because of her urinary pressure sensation a UA was ordered which can be obtained when the Jarrell is placed. BMP was obtained to assess [...] 71.7 H Lymph % (Auto) 15.0 L Burnet % (Auto) 9.7 Eos % (Auto) 1.1 [...] Clarity Clear Urine pH 6.0 Ur Specific Iota 1.015 Urine Protein 30 H Urine Glucose [...] follows: Interpretation: Sinus Tachycardia (Rate is 116. SD interval is 130 ms perQRS duration 80 ms. QT duration. 14 ms. [place] is normal. Patient has evidenceof atrial enlargement. There is also evidence of LVH. There is no acute ischemic changes.) Management Discussion w/another healthcare provider: Hospitalist and Hard Tile Setter Apprentice (Her tow motor mechanic was contacted since he sent her in.) [...] independent rotation laboratory results), Discussing w/Patient &/or Family/[place]ar [place] Man, Discussing w/Consultants (Dr. 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 Call [facility] ([phone]) or report tothe closest Emergency Room. Call 911 if necessary. 08/07/241938 Cosigner Signature (if applicable): CC: Dr. Amos Floyd MD ~ Signed [facility]06-04-2025 NoteHNO ID: [id number] Author: AMOS FLOYD MD Service: ? Author Type: Physician Type: Progress Notes Filed: 07/24/2024 12:45 Note Text: This note was created using Rachioter. Subjective Linda Peralta is a 79 year old female. Recording using CapLinked software for draft documentation of the visit was discussed with the patient/authorized access services representative; all questions welcomed and answered. Patient/authorized access services representative agreed to proceed Heart Murmur: - [...] on it years ago (more content not included)...[facility]06-04-2025 History of Present illness Narrative* Amos Floyd MD - 07/24/2024 11:28 AM EDT This note was created using Postmatesriter. Subjective Linda Peralta is a 79 year old female. Recording using CapLinked software for draft documentation of the visit was discussed with the patient/authorized access services representative; all questions welcomed and answered. Patient/authorized access services representative agreed to proceed Heart Murmur: - [...] in diameter incidentally noted on imaging study, [facility]. Social History Tobacco Use Smoking status: Never [...] ICD10: E27.40 Stable, and monitored by her enterprise application analyst. - HYDROCORTISONE 10 MG TABLET 8. Encounter for immunization - ICD9: V03.89, ICD10: Z23 - PFIZER-BIONTECH COVID-19 VACCINE AGE 12+ YR (COMIRNATY) Amos Floyd MD documented in this encounterOhiohealth [facility]06-03-[facility] Radiology Diagnostic study note [facility] Imaging Services [address] [place] [place], [place] [address] Chest PA and Lateral MR#: [id number] Acct: [id number] Name: LINDA PERALTA Rep #: [id number] : 1945 F 79 From: Bobbi Parada MD PCP: Dr. Amos Floyd MD Status: P RE NVC Study:Chest PA and Lateral Date of Exam: 07/23/24 Exam# [id number] Ordering Dr: Heaven Bolton PICK UP PICK UP-C PROCEDURE: CHEST PA AND LATERAL 07/23/2024 REASON [...] pulmonary vascular congestion. Mild cardiomegaly. Reading Location: [id number] CC: PICK UP-C Heaven Bolton; Dr. 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 inactive July 23, 2024 8 :33am MVP (mitral valve prolapse) inactive July 23, 2024 8:33am Acute cystitis without hematuria resolved August 07, 2024 8:16pm Acute hypotension resolved August 072024 8:16pm Bradycardia resolved August 07 8:16pm Complicated urinary tract infection resolved August 07, 2024 8:16pm Dark stools resolved August 07 8:16pm Dehydration resolved August 07 8:16pm Elevated troponin resolved August 072024 8:16pm Leukocytosis resolved August 07, 025 8:16pm Metabolic acidosis resolved July 212024 8:16pm Sepsis resolved August 07 8:16pm Moris's disease inactive August 072024 8:16pm Aortic stenosis inactive July 8:16pm Aortic stenosis, severe inactive J 2024 8:16pm 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, stage 3 inac tive August 07, 2024 8:16pm shelter (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 inactive August 07, 2024 8:16pm MVP (mitral valve prolapse) inactive August 07, 2024 8:16pm Overweight (BMI 25.0-29.9) inactive August 07, 2024 8:16pm [facility] Work Phone: 1(592) 771-920406-03-2025 Evaluation note* Diagnosis Onset Date Resolution Status Admit Date Aortic stenosis acute July 23, 2024 8:33am Essential (primary) hypertension chronic July 23, 2024 8:33am Hyperlipidemia chronic July 23, 2024 8:33am History of non-ST elevation myocardial infarction (NSTEMI) April, resolved July 23 8:33am 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, stage 3 inactive July 23, 2024 8:33am 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 inactive July 23, 2024 8:33am MVP (mitral valve prolapse) inactive July 23, 2024 8:33am Acute cystitis without hematuria resolved August 07, 2024 8:16pm Acute hypotension resolved August 072024 8:16pm Bradycardia resolved August 07 8:16pm Complicated urinary tract infection resolved August 07, 2024 8:16pm Dark stools resolved Pat 18th, 20 25 8:16pm Dehydration resolved August 07 8:16pm Elevated troponin resolved August 072024 8:16pm Leukocytosis resolved August 07, 025 8:16pm Metabolic acidosis resolved July 212024 8:16pm Sepsis resolved August 07 8:16pm Plumas's disease inactive August 072024 8:16pm Aortic stenosis inactive July 8:16pm Aortic stenosis, severe inactive J 2024 8:16pm 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, stage 3 inactive August 07, 2024 8:16pm shelter (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 inactive August 07 8:16pm MVP (mitral valve prolapse) inactive August 07, 2024 8:16pm Overweight (BMI 25.0-29.9) inactive August 07, 2024 8:16pm S/P TAVR (transcatheter aortic valve replacement) October 23, 2024 acute Se pt2024 8:57am Essential (primary) hypertension chronic November 14, 2024 8:57am Hyperlipidemia chronic November 14, 2024 8:57am History of non-ST elevation myocardial infarction (NSTEMI) April, resolved November 142024 8:57am 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, stage 3 inactive November 14, 2024 8:57am shelter (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 inactive October 8:57am MVP (mitral valve prolapse) inactive November 14, 2024 8:57am [facility] Work Phone: 1(567) 189-214505-21-2025 NoteHNO ID: [id number] Author: ?, ?, ? Service: ? Author Type: LICENSED NURSE Type: Progress Notes Filed: 07/10/2024 09:03 Note Text: Patient presents for Prolia injection. Denies any problems at this time. Patient instructed on any SE of medication, verbalized understanding and agreed to proceed with treatment. Tolerated injection well. Desirae Arzola [facility]04-30-2025 NoteHNO ID: [id number] Author: MARK LEE CPhT Service: ? Author Type: Heel Attacher Type: Progress Notes Filed: 06/19/2024 15:00 Note [...] to be addressed Mark Lee CPhT [facility] History of Present illness Narrative* Mark Lee [...] concerns to be addressed Mark Lee CPhT [facility] Care Pharmacy Team documented in this encounterOhiohealth Shelby Hospital04-30-2025 NotePatient Outreach (PHPOHE) LINDA PERALTA ([id number]) 1945 F Date Time Provider Department 06/19/24 [...] concerns to be addressed Mark Lee CPhT [facility] Pharmacy Team Allergies As of Date: 06/19/2024 [...] [I25.10] 04/25/2009 DVT (deep venous thrombosis) ([facility]) [I82.409] 03/23/2012 01/23/2024 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 [...] Status:Closed by SIMON LEE (more content not included)...[facility]04-28-2025 NoteHNO ID: [id number] Author: MARK LEE CPhT Service: ? Author Type: Heel Attacher Type: Progress Notes Filed: 06/17/2024 10:08 Note Text: Patient is identified through a medication adherence outreach initiative based on pharmacy claims data from: [place] Medication Adherence Category: Statins First Review Attribution Status: Correct Attribution Medication(s) Simvastatin 20 mg Medication Status per portal/Epic Reconcile Dispense: Not filled - Outreach patient Medication Status per Profile Review: No issues per profile review Patient appropriate for outreach? Yes Patient identified by name and Outreach to patient: Left Voicemail/message for return call What was primary intervention? No intervention Mark Lee CPhT [facility] TeamK[facility]04-28-2025 NotePatient Outreach (PHPOHE) CORINNA Hermes ([id number]) 1945 F Date Time Provider Department 06/17/24 AMOS FLOYD PHPOHE During your visit today, we recorded the following information about you: Mark Lee CPhT 06/17/2024 10:08 AM Signed Patient is identified through a medication adherence outreach initiative based on pharmacy claims data from: [facility] Medication Adherence Category: Statins First Review Attribution Status: Correct Attribution Medication(s) Simvastatin 20 mg Medication Status per portal/Epic Reconcile Dispense: Not filled - Outreach patient Medication Status per Profile Review: No issues per profile review Patient appropriate for outreach? Yes Patient identified by name and Outreach to patient: Left Voicemail/message for return call What was primary intervention? No intervention Mark Lee CPhT [facility] Team Allergies As of Date: 06/17/2024 [...] [I25.10] 04/25/2009 DVT (deep venous thrombosis) ([facility]) [I82.409] 03/23/2012 01/23/2024 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 [...] in*02/22/2024 Encounter Status:Closed by MARK LEE on 06/17/24[facility] 05-14-[facility]24 NoteHNO ID: [id number] Author: NAKIA BURK CPhT Service: ? Author Type: Heel Attacher Type: Progress Notes Filed: 05/14/2024 14:05 Note [...] Nakia Burk CPhT [facility] Pharm[facility] TeamK[facility]03-25-2025 History of Present illness Narrative* Nakia Burk [...] Based Care Pharmacy Team documented in this encounterOhiohealth Shelby Hospital03-25-2025 NotePatient Outreach (PHPOHE) LINDA PERALTA ([id number]) 1945 F Date Time Provider Department 05/14/24 AMOS FLOYD PHPOHE During your visit today, we recorded the following information about you: Nakia Burk CPhT 05/14/2024 2:05 PM Signed Patient is identified through a medication adherence outreach initiative based on pharmacy claims data from: [facility] Medication Adherence Category: Hypertension First Review Attribution [...] concerns to be addressed Nakia Burk CPhT [facility] Team Allergies As of Date: 05/14/2024 [...] [I25.10] 04/25/2009 DVT (deep venous thrombosis) ([facility]) [I82.409] 03/23/2012 01/23/2024 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 [...] in*02/22/2024 Encounter Status:Closed by NAKIA BURK on 05/14/24[facility] 04-29-[facility] Evaluation note* Diagnosis Onset Date Resolution Status Admit Date Aortic stenosis acute April 10:53am shelter (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 acute April 29, 2024 10:53am MVP (mitral valve prolapse) acute April 29, 2024 10:53am 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, stage 3 bag liner mg April 29, 2024 10:53am Essential (primary) hypertension chronic April 29, 2024 10:53am Hyperlipidemia chronic April 10:53am History of non-ST elevation myocardial infarction (NSTEMI) April, resolved M [facility] 2024 10:53am [facility] Work Phone: 1(694) 378-607003-10-2025 Evaluation note* Diagnosis Onset Date Resolution Status Admit Date Aortic stenosis acute April 10:53am shelter (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 acute April 29, 2024 10:53am MVP (mitral valve prolapse) acute April 29, 2024 10:53am 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, stage 3 bag liner mg April 29, 2024 10:53am Essential (primary) hypertension chronic April 29, 2024 10:53am Hyperlipidemia chronic April 10:53am History of non-ST elevation myocardial infarction (NSTEMI) April, resolved M [facility] 2024 10:53am Severe aortic stenosis acute 2024 8:33am [facility] Work Phone: 1(201) 238-163103-10-2025 Evaluation note* Diagnosis Onset Date Resolution Status Admit Date Aortic stenosis acute April 10:53am shelter (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 acute April 29, 2024 10:53am MVP (mitral valve prolapse) acute April 29, 2024 10:53am 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, stage 3 bag liner mg April 29, 2024 10:53am Essential (primary) hypertension chronic April 29, 2024 10:53am Hyperlipidemia chronic April 10:53am History of non-ST elevation myocardial infarction (NSTEMI) April, resolved M [facility] 2024 10:53am Aortic stenosis acute July 23, 2024 8:33am shelter (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 acute July 23, 2024 8 :33am MVP (mitral valve prolapse) acute July 23, 2024 8:33am 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, stage 3 bag liner mg July 23, 2024 8:33am Essential (primary) hypertension chronic July 23, 2024 8 :33am Hyperlipidemia chronic July 23, 2024 8:33am History of non-ST elevation myocardial infarction (NSTEMI) April, resolved J [facility] 2024 8:33am [facility] Work Phone: 1(858) 745-893203-10-2025 Evaluation note* Diagnosis Onset Date Resolution Status Admit Date Aortic stenosis acute April 10:53am shelter (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 acute April 29, 2024 10:53am MVP (mitral valve prolapse) acute April 29, 2024 10:53am 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, stage 3 bag liner mg April 29, 2024 10:53am Essential (primary) hypertension chronic April 29, 2024 10:53am Hyperlipidemia chronic April 10:53am History of non-ST elevation myocardial infarction (NSTEMI) April, resolved M [facility] 2024 10:53am Aortic stenosis acute July 23, 2024 8:33am shelter (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 acute July 23, 2024 8 :33am MVP (mitral valve prolapse) acute July 23, 2024 8:33am 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, stage 3 bag liner mg July 23, 2024 8:33am Essential (primary) hypertension chronic July 23, 2024 8 :33am Hyperlipidemia chronic July 23, 2024 8:33am History of non-ST elevation myocardial infarction (NSTEMI) April, resolved J [facility] 2024 8:33am Acute cystitis without hematuria acute August 07, 2024 8:16pm Acute hypotension acute August 072024 8:16pm Plumas's disease acute August 072024 8:16pm Aortic stenosis acute July 8:16pm Aortic stenosis, severe acute J [facility] 2024 8:16pm Complicated urinary tract infection acute August 07, 2024 8:16pm Dark stools acute August 07 8:16pm Dehydration acute August 07 8:16pm Elevated troponin acute August 072024 8:16pm Leukocytosis acute August 07, 2 025 8:16pm 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 acute August 07, 2024 8:16pm Metabolic acidosis acute July 212024 8:16pm MVP (mitral valve prolapse) acute August 07, 2024 8:16pm Overweight (BMI 25.0-29.9) acute August 07, 2024 8:16pm Sepsis acute August 07 8:16pm 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, stage 3 bag liner mg August 07, 2024 8:16pm [facility] Work Phone: 1(958) 874-489903-10-2025 Evaluation note* Diagnosis Onset Date Resolution Status Admit Date Aortic stenosis acute April 10:53am shelter (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 acute April 29, 2024 10:53am MVP (mitral valve prolapse) acute April 29, 2024 10:53am 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, stage 3 bag liner mg April 29, 2024 10:53am Essential (primary) hypertension chronic April 29, 2024 10:53am Hyperlipidemia chronic April 10:53am History of non-ST elevation myocardial infarction (NSTEMI) April, resolved M [facility] 2024 10:53am Aortic stenosis acute July 23, 2024 8:33am 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 acute July 23, 2024 8 :33am MVP (mitral valve prolapse) acute July 23, 2024 8:33am 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, stage 3 bag liner mg July 23, 2024 8:33am Essential (primary) hypertension chronic July 23, 2024 8 :33am Hyperlipidemia chronic July 23, 2024 8:33am History of non-ST elevation myocardial infarction (NSTEMI) April, resolved J [facility] 2024 8:33am Acute cystitis without hematuria acute August 07, 2024 8:16pm Acute hypotension acute August 072024 8:16pm Plumas's disease acute August 072024 8:16pm Aortic stenosis acute July 8:16pm Aortic stenosis, severe acute J [facility] 2024 8:16pm Bradycardia acute August 07 8:16pm Complicated urinary tract infection acute August 07, 2024 8:16pm Dark stools acute August 07 8:16pm Dehydration acute August 07 8:16pm Elevated troponin acute August 072024 8:16pm Leukocytosis acute August 07, 2 025 8:16pm 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 Author Type: Cork Insulator Type: Progress Notes Filed: 04/05/2024 15:22 Note [...] or unnecessary to reach patient: Left message [employer] message sent Navigation Signature: Del Saravia MA April 05, 2024 3:11 [facility]02-14-2025 History of Present illness Narrative* Del [...] or unnecessary to reach patient: Left message [employer] message sent Navigation Signature: Del Saravia MA April 05, 2024 3:11 PM documented in this encounterOhiohealth Shelby Hospital02-14-2025 NotePatient Outreach (NETNAV) LINDA PERALTA ([id number]) 1945 F Date Time Provider Department 04/05/24 DEL SARAVIA During your visit today, we recorded the following information about you: Del Saravia MA 04/05/2024 3:22 PM Signed POPULATION HEALTH NAVIGATION OUTREACH Action/FYI - [employer] High Risk - 1st attempt Next office visit: 07/24/24 - 6 mo follow up Last AWV; 01/23/24 No Health Maintenance Voicemail message left and [employer]hart message sent offering to assist in scheduling [...] [I25.10] 04/25/2009 DVT (deep venous thrombosis) ([facility]) [I82.409] 03/23/2012 01/23/2024 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 [...] in*02/22/2024 Encounter Status:Closed by DEL SARAVIA on 04/05/24[facility] Telephone encounter Note* Telephone Encounter - Carlos Roe RN - 02/22/2024 9:13 AM EST Pt called and is notified of results and given providers message. Pt voices understanding. States her Yard Coordinator is Dr. Alexander Gregory in [facility]. 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 Will fax this msg and CT scan report to his office. [facility]01-02-[facility] Miscellaneous Notes* Telephone Encounter - Carlos Roe RN - 02/22/2024 9:13 AM EST Pt called and is notified of results and given providers message. Pt voices understanding. States her Yard Coordinator is Dr. Alexander Gregory in [facility]. 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 Will fax this msg and CT scan report to his office. * Telephone Encounter - Carlos Roe RN - 02/22/2024 9:09 AM EST ----- Message from Amos Floyd MD sent at 02/22/2024 12:42 AM EST ----- Nodule on chest xray is a healed rib fracture. What needs follow up is a 1.1 cm nodule of her rightthyroid. 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 documented in this encounterOhiohealth Shelby Hospital01-02-2025 Telephone encounter Note * Telephone Encounter - Carlos Roe RN - 02/22/2024 9:09 AM EST ----- Message from Amos Floyd MD sent at 02/22/2024 12:42 AM EST ----- Nodule on chest xray is a healed rib fracture. What needs follow up is a 1.1 cm nodule of her rightthyroid. 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 [facility]12-12-[facility] History of Present illness Narrative* Gisela [...] PATIENT PRESENTS WITH AN IMPLANTABLE OR ATTACHED REMELT PAN TANK OPERATOR: No RADIOLOGY DEPARTMENT: CT; Exam(s) Completed: Chest PERIPHERAL IV DATA: Not applicable SIGNED BY: GENNA Higgins February 01, 2024 11:10 AM documented in this encounterOhiohealth Shelby Hospital12-12-2024 NoteHNO ID: [id number] Author: GISELA BAIRD CT Service: Radiology Author Type: Steel Die Press Set Up Operator Type: Progress Notes Filed: 02/01/2024 11:10 Note [...] PATIENT PRESENTS WITH AN IMPLANTABLE OR ATTACHED REMELT PAN TANK OPERATOR: No RADIOLOGY DEPARTMENT: CT; Exam(s) Completed: Chest PERIPHERAL IV DATA: Not applicable SIGNED BY: GENNA Higgins February 01, 2024 11:10 [facility]12-03-2024 Instructions* Patient Instructions* Amos Floyd MD - 01/23/2024 10:50 AM EST Screening schedule The following prevention plan is recommended: Bone Density Screening due on 10/08/2021 Influenza Vaccine(1) due on 10/22/2023 Covid-19 Vaccine(2023- season) due on 10/22/2023 LDL Cholesterol due [...] review all the medicines you take, even dfcr-ixw-xjufsfy medicines. As you get older, the way [...] have certain medical conditions. documented in this encounterOhiohealth Shelby Hospital12-03-2024 NoteHNO ID: [id number] Author: AMOS FLOYD MD Service: ? Author Type: Physician Type: Progress Notes Filed: 01/23/2024 14:09 Note Text: This note was created using [employer]. Subjective Linda Peralta is a 78 year [...] PFIZER-BIONTECH COVID-19 VACCINE AGE 12+ YR (COMIRNATY) - [...] 39 Stable - Couns (more content not included)...[facility]12-[facility] History of Present illness Narrative* Amos Floyd MD - 01/23/2024 10:34 AM EST This note was created using Postmatesriter. Subjective Linda Peralta is a 78 year [...] immunization - ICD9: V03.89, ICD10: Z23 - [employer]-Veebeam COVID-19 VACCINE AGE 12+ YR (COMIRNATY) - [...] General Outside specialists seen: Cardiology-Dr. Ortega [facility] Nephrology- Dr. Jennifer Tarango Auto Body Repair Estimator- Dr. Isreal Carpio Endocrinology- Dr. Alexander Gregory. [...] interested in routine screening. documented in this encounterOhiohealth Shelby Hospital12-03-2024 NoteHNO ID: [id number] Author: AMOS FLOYD MD Service: ? Author [...] General Outside specialists seen: Cardiology-Dr. Ortega [facility] Nephrology- Dr. Jennifer Tarango Auto Body Repair Estimator- Dr. Isreal Carpio Endocrinology- Dr. Alexander Gregory. [...] kg/m? Vision Screening: Follows with optometry/ophthalmology Right: 20/25 Left: 20/ 70 Both: 20/25 Assessment/Plan Medicare annual wellness visit, subsequent (Z00.00) - Counseled on healthy diet and regular exercise - Fall avoidance information provided - Personalized prevention plan provided - Vaccine recommendations. - Colorectal cancer screening reviewed. Even with colon polyps, she was no longer interested in routine screening.[facility] Telephone encounter Note* Telephone Encounter - Kelley Rivera LPN - 01/19/2024 3:49 PM EST Called pt and reviewed. She says cardiology wanted chest CT repeated next year. She has appt with pcp 01/23/24 she will review then to see when this needs repeated. [facility]11-29-[facility] Miscellaneous Notes* Telephone Encounter - Kelley [...] support you in caring for your patient. [facility] is committed to providing safe care [...] to the appropriate caregiver. documented in this encounterOhiohealth Shelby Hospital11-29-2024 Telephone encounter Note * Telephone Encounter [...] support you in caring for your patient. [facility] is committed to providing safe care [...] we can redirect to the appropriate caregiver. [facility]11-25-2024 NoteHNO ID: [id number] Author: AMOS FLOYD MD Service: ? Author Type: Physician Type: Progress Notes Filed: 01/15/2024 18:51 Note Text: ASSESSMENT/PLAN: 1. Nodule of lower lobe of right lung needing follor up CT - ICD9: 793.11, ICD10: R91.1 - CT CHEST WO IVCLAURA Floyd [facility]11-25-2024 History of Present illness Narrative* Amos Floyd MD - 01/15/2024 6:50 PM EST ASSESSMENT/PLAN: 1. Nodule of lower lobe of right lung needing follor up CT - ICD9: 793.11, ICD10: R91.1 - CT CHEST WO SHEILA Floyd MD documented in this encounterOhiohealth Shelby Hospital11-21-2024 NoteHNO ID: [id number] Author: DESIRAE ARZOLA LPN Service: ? Author Type: LICENSED NURSE Type: Progress Notes Filed: 01/11/2024 13:42 Note Text: Patient presents for Prolia injection. Denies any problems at this time. Patient instructed on any SE of medication, verbalized understanding and agreed to proceed with treatment. Tolerated injection well. [facility]ae Ar[facility] History of Present illness Narrative* Desirae Arzola LPN - 01/11/2024 1:41 PM EST Patient presents for Prolia injection. Denies any problems at this time. Patient instructed on any SE of medication, verbalized understanding and agreed to proceed with treatment. Tolerated injectionwell. Desirae Arzola LPN documented in this encounterOhiohealth Shelby Hospital11-11-2024 History of Present illness Narrative* Marguerite Waller RT(Lin) - 01/01/2024 1:30 PM EST Radiology Service [...] PATIENT PRESENTS WITH AN IMPLANTABLE OR ATTACHED REMELT PAN TANK OPERATOR: No RADIOLOGY DEPARTMENT: General X-ray: Exam(s) Completed: Chest X-Ray PERIPHERAL IV DATA: Not applicable SIGNED BY: RT Doug(R) January 01, 2024 1:40 PM documented in this encounterOhiohealth Shelby Hospital11-11-2024 NoteHNO ID: [id number] Author: MARGUERITE WALLER RT(R) Service: Radiology Author [...] PATIENT PRESENTS WITH AN IMPLANTABLE OR ATTACHED REMELT PAN TANK OPERATOR: No RADIOLOGY DEPARTMENT: General X-ray: Exam(s) Completed: Chest X-Ray PERIPHERAL IV DATA: Not applicable SIGNED BY: RT Doug(R) January 01, 2024 1:40 [facility]11-08-2024 History of Present illness Narrative* Javier Abbott PA-C - 12/29/2023 9:30 AM EST Images from the original note were not included. [facility] PATIENT NAME: Linda [...] had X-ray a few weeks before at [facility] and we don't have the images buthave [...] of lower extremity (deep venous thrombosis) (HCC) 03/27/2009 Esophageal reflux Gallstones 03/06/2016 Hypercalcemia 03/19/2009 Hypertension Nonrheumatic aortic valve stenosis 06/30/2023 NSTEMI (non-ST elevated myocardial infarction) (HCC) 04/27/2009 Cardiac cath normal Osteopenia on chronic [...] W/COLLJ SPEC WHEN PFRMD 03/26/2010 Inpatient at [facility] ESOPHAGOGASTRODUODENOSCOPY TRANSORAL DIAGNOSTIC 02/2002 EGD ESOPHAGOGASTRODUODENOSCOPY TRANSORAL [...] Age of Onset Coronary Artery Disease Mother [place] at 87y.o. Hypertension Mother Stroke Father Coronary [...] Time Provider Department Center 01/11/2024 2:00 PM [facility]24 9:40 AM Amos Floyd MD [facility] Follow-up Plan Additional exams needed for this [...] no, patient declined? No documented in this encounterOhiohealth Shelby Hospital11-08-2024 NoteHNO ID: [id number] Author: JAVIER ABBOTT PA-C Service: ? Author Type: Physician Testing Machine Operator Type: Progress Notes Filed: 03/28/2024 16:18 Note Text: [facility] PATIENT NAME: Linda Peralta PRIMARY CARE PHYSICIAN: Amos Floyd MD CHIEF COMPLAINT: Abnormal finding of diagnostic imaging INITIAL VISIT: Yes Patient seen on Audio Only Visit platform. Location of patient: [place] I have communicated my name and active licensure. The patient's identity and physical location were verified at the time of this visit. Either the patient or their legal access services representative has been informed of the risks [...] had X-ray a few weeks before at [facility] and we don't have the images but [...] eczema, due to unspecified cause 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Plumas's disease Cystocele, midline 07/23/2007 Diverticulosis of colon (without mention of hemorrhage) DVT (deep venous thrombosis) ([facility]) 03/23/2012 DVT of lower extremity (deep venous thrombosis) ([facility]) 03/27/2009 Esophageal reflux Gallstones 03/06/2016 Hypercalcemia 03/19/2009 Hypertension Nonrheumatic aortic valve stenosis 06/30/2023 NSTEMI (non-ST elevated myocardial infarction) ([facility]) 04/27/2009 Cardiac cath normal 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 11/13/2013 Alendronate (Fosamax) start: 03/09/2017-03/09/2022 Other adrenal hypofunction PMH - PAST MEDICAL HISTORY OF Left kidney donated Psoriasis and similar disorder Pure hypercholesterolemia 02/17/2015 Right renal mass 03/27/2009 Stage 3b chronic kidney disease ([facility]) 07/29/2020 Syncope Tonic pupillary reaction Unspecified disorder [...] W/COLLJ SPEC WHEN PFRMD 03/26/2010 Inpatient at [facility] ESOPHAGOGASTRODUODENOSCOPY TRANSORAL DIAGNOSTIC 02/2002 EGD ESOPHAGOGASTRODUODENOSCOPY TRANSORAL [...] Age of Onset Coronary Artery Disease Mother [place] at 87y.o. Hypertension Mother Stroke Father Coronary [...] Medication Sig simvastatin (ZOCOR (more content not included)...[facility] 12-28-2023 Miscellaneous Notes* Telephone Encounter - Kelley Rivera LPN - 12/28/2023 11:57 AM EST Pt notified. Nurse visit arranged for 01/01/24. * Telephone Encounter - Kelley Rivera LPN - 12/28/2023 10:50 AM EST Called Pattie at [phone]. This PA is completed with pharmacy to aileen aureliano at [phone]. This reference number is [id number]. Called pharmacy and they report there is a PA already on file for Dr. Rey Vann covered until 05/11/24. Did start a new PA for pcp. This was reviewed over the phone and PA approved from 12/28/23 to 12/27/24. This auth number is [id number]. They will also fax approval notice too. * Telephone Encounter - Kelely Rivera LPN - 12/28/2023 10:08 AM EST [...] 1:21 PM EST Bone density completed at [facility]. View External Imaging - Bone Density [ID [id number]] Previously completed PA for prolia to be [...] prilia is still recommended documented in this encounterOhiohealth Shelby Hospital11-07-2024 Telephone encounter Note * Telephone Encounter - Kelley Rivera LPN - 12/28/2023 11:57 AM EST Pt notified. Nurse visit arranged for 01/01/24. [facility]11-07-2024 Telephone encounter Note* Telephone Encounter - Kelley Rivera LPN - 12/28/2023 10:50 AM EST Called Pattie at [phone]. This PA is completed with pharmacy to aileen aureliano at [phone]. This reference number is [id number]. Called pharmacy and they report there is a PA already on file for Dr. Rey Vann covered until 05/11/24. Did start a new PA for pcp. This was reviewed over the phone and PA approved from 12/28/23 to 12/27/24. This auth number is [id number]. They will also fax approval notice too. [facility]11-07-2024 Telephone encounter Note* Telephone Encounter - Kelley Rivera LPN - 12/28/2023 10:08 AM EST Called pt and she was notified. She is willing to keep getting the prolia if insurance will cover. Will contact them for PA for prolia. [facility]11-06-2024 Telephone encounter Note* Telephone Encounter - Ariella Christianson RN - 12/27/2023 5:56 PM EST Attempted to contact patient. No answer. Try again. Ariella Christianson, RN [facility]11-06-2024 Telephone encounter Note* Telephone Encounter - Amos Floyd MD - 12/27/2023 5:46 PM EST I see she still recently had issues with high calcium and her vitamin D is in a good range. So for her, at this time, additional calcium and vitamin D is not recommended. [facility]11-06-2024 Telephone encounter Note* Telephone Encounter - Milagros Burton LPN - 12/27/2023 3:04 PM EST Patient returned call and went over results, notes from Dr Floyd with understanding. Patient said she is not taking any Calcium or Vitamin D. What dose and is she to start taking both? [facility]11-06-2024 Telephone encounter Note* Telephone Encounter - Isha Wright LPN - 12/27/2023 2:38 PM EST Left message for Patient to call office. Isha Wright LPN [facility]11-06-2024 Telephone encounter Note* Telephone Encounter - [...] of treatment is needed. Amos Floyd MD [facility]11-05-2024 Telephone encounter Note* Telephone Encounter - Kelley Rivera LPN - 12/26/2023 1:21 PM EST Bone density completed at [facility]. View External Imaging - Bone Density [ID [id number]] Previously completed PA for prolia to be [...] nurse visit) if prilia is still recommended [facility]10-30-2024 NoteHNO ID: [id number] Author: NATHALY REN APRN.AIRWAYS CONTROL SPECIALIST Service: ? Author Type: Nurse Practitioner Type: [...] by MAIKEL: 12/07/2023 Phone call: 12/20/2023- left VM to call back and/or check MyChart Routed to [facility] for scheduling 12/20/2023 Imaging result: routed to [...] chest is needed CT chest outside hospital 05/15/2023[facility]10-30-2024 History of Present illness Narrative* Nathaly Ren APRN.AIRWAYS CONTROL SPECIALIST - 12/20/2023 12:29 PM EDT Images from [...] by MAIKEL: 12/07/2023 Phone call: 12/20/2023- left VM to call back and/or check MyChart Routed to [facility] for scheduling 12/20/2023 Imaging result: routed to [...] chest outside hospital 05/15/2023 documented in this encounterOhiohealth Shelby Hospital10-21-2024 Telephone encounter Note * Telephone Encounter - Torsten Vora MA - 12/11/2023 9:20 AM EDT Patient notified, verbalized understanding. DXA scheduled for 12/20 [facility]10-21-[facility] Miscellaneous Notes* Telephone Encounter - Torsten Vora MA - 12/11/2023 9:20 AM EDT Patient [...] Please advise patient, and cancel Rx at [facility] [place]. * Telephone Encounter - Kelley Rivera LPN [...] 12/07/2023 10:08 AM EDT Fax rec'd from [facility] regarding the prolia. They note the prescription is already covered by the plan with no restrictions with pharmacy D plan. Pt will need rx to local pharmacy and bring to an appt with nurse schedule to be given here. * Telephone Encounter - Kelley Rivear LPN - 12/06/2023 4:32 PM EDT Pt notified we are waiting for insurance to review a prior auth for the prolia * Telephone Encounter - Kelley Rivera LPN - 12/06/2023 3:55 PM EDT This went to pharmacy benefits. Chaparro PERALTA (Kelly: [id number]) - [phone] Prolia 60MG/ML syringes status: PA Request Created: [...] her insurance from 02/20/23 to 02/20/2024 through [facility]. Will call her insurance to see if we can just change the provider and place of service. There wouldbe no change with her clinical requirements. * Telephone Encounter - Kelley Rivera LPN - 12/05/2023 4:19 PM EDT PA needed for prolia. documented in this encounterOhiohealth Shelby Hospital10-19-2024 Telephone encounter Note * Telephone Encounter - Amos Floyd MD - 12/09/2023 12:11 PM EDT Okay. Do bone density and we'll evaluate options at her follow up in January. [facility]10-18-[facility]24 Telephone encounter Note* Telephone Encounter - [...] [facility] advise [facility]-17-[facility] Telephone encounter Note* Telephone Encounter - [...] the injection for the nurse to give. T [facility]10-17-2024 Telephone encounter Note* Telephone Encounter - Amos Floyd MD - 12/07/2023 12:16 PM EDT The following approved medication requests have been transmitted electronically. Requested Prescriptions Signed Prescriptions Disp Refills denosumab (PROLIA) 60 mg/mL 1 mL 1 Sig: Inject 1 mL subcutaneously once every 6 months. Authorizing Provider: AMOS FLOYD MD [facility]10-17-2024 Telephone encounter Note* Telephone Encounter - Kelley Rivera LPN - 12/07/2023 10:08 AM EDT [facility] prolia. They note the prescription is already covered by the plan with no restrictions with pharmacy D plan. Pt will need rx to local pharmacy and bring to an appt with nurse schedule to be given here. [facility]10-16-[facility] Telephone encounter Note* Telephone Encounter - Kelley Rivera LPN - 12/06/2023 4:32 PM EDT Pt notified we are waiting for insurance to review a prior auth for the prolia [facility]10-16-2024 Telephone encounter Note* Telephone Encounter - [...] Rivera LPN December 06, 2023 4:29 PM [facility]10-16-2024 Miscellaneous Notes* Telephone Encounter - Kelley [...] 06, 2023 4:29 PM documented in this encounterOhiohealth Shelby Hospital10-16-2024 Telephone encounter Note * Telephone Encounter - Kelley Rivera LPN - 12/06/2023 3:55 PM EDT This went to pharmacy benefits. LINDA PERALTA (Kelly: [id number]) - [id number] Prolia 60MG/ML syringes status: PA Request Created: December 06, 2023 Sent: December 06, 2023 Will see what their response is,may have to call for medical benefits PA coverage to review. [facility]10-16-[facility] Telephone encounter Note* Telephone Encounter - Kelley Rivera LPN - 12/06/2023 2:15 PM EDT Per benefits inquiry it appears pt is covered now with [employer] medicare. [facility]10-16-[facility] Telephone encounter Note* Telephone Encounter - Kelley Rivera LPN - 12/06/2023 2:12 PM EDT Called [employer] and pt no longer covered. This was terminated 02/20/23. [facility]10-16-[facility] Telephone encounter Note* Telephone Encounter - Kelley Rivera LPN - 12/06/2023 12:25 PM EDT In review the prolia is already approved with her insurance from 02/20/23 to 02/20/2024 through [facility]. Will call her insurance to see if we can just change the provider and place of service. There wouldbe no change with her clinical requirements. [facility]10-15-[facility] Telephone encounter Note* Telephone Encounter - Kelley Rivera LPN - 12/05/2023 4:19 PM EDT PA needed for prolia. [facility]10-11-2024 Telephone encounter Note* Telephone Encounter - [...] Please review and advise, Salima Pedraza RN [facility]10-11-2024 Miscellaneous Notes* Telephone Encounter - Salima [...] Pedraza RN * Telephone Encounter - Torsten Vora MA - 11/30/2023 1:57 PM EDT Left message to call office. 11/30/2023 1:57 PM Dxa scan order faxed to [facility]. * Telephone Encounter - Amos Floyd MD - 11/30/2023 12:24 PM EDT ASSESSMENT/PLAN: 1. Age-related osteoporosis with current pathological fracture with routine healing - ICD9: V54.29,733.01, ICD10: M80.00XD - DENOSUMAB 60 MG/ML SUBCUTANEOUS SYRINGE. Ordered. - DXA-AXIAL SKELETON. Do this at [facility] where she's had previous bone densities. Amos Floyd MD * Telephone Encounter - Va Aguayo RN - 11/28/2023 2:31 PM EDT Patient returned call and given provider's message below. Patient states she does not see Dr. Vann any more-that she was dismissed from them due to Dr. Vann does not work with Plumas's Disease. She states her last Prolia injection was in May and she is due. Patient asking if Dr. Floyd would be agreeable to placing a Prolia injection order for her? Reports she could see a Dr. Gregory in [place], [facility] of [facility], for this but more convenientfor her to ask PCP. Or, does PCP feel she does need any further Prolia injections? Please advise. Thank you. * Telephone Encounter - Isha Wright LPN - 11/28/2023 1:55 PM EDT Left message to call & speak to nurse. Isha Wright LPN * Telephone Encounter - Rocio Elizalde APRN.TELLY - 11/28/2023 1:38 PM EDT It looks like this is being managed by Dr. King Rocio Elizalde APRN.AIRWAYS CONTROL SPECIALIST * Telephone Encounter - Jeaneth Rodriguez - 11/28/2023 11:42 AM EDT Pt wondering if Dr. Amor can order a prolia shot for her, please review and advise. Jeaneth Rodriguez November 28, 2023 11:42 AM documented in this encounterOhiohealth Shelby Hospital10-10-2024 Telephone encounter Note * Telephone Encounter - Torsten Vora MA - 11/30/2023 1:57 PM EDT Left message to call office. 11/30/2023 1:57 PM Dxa scan order faxed to [facility]. [facility]10-10-[facility] Telephone encounter Note* Telephone Encounter - Amos Floyd MD - 11/30/2023 12:24 PM EDT ASSESSMENT/PLAN: 1. Age-related osteoporosis with current pathological fracture with routine healing - ICD9: V54.29,733.01, ICD10: M80.00XD - DENOSUMAB 60 MG/ML SUBCUTANEOUS SYRINGE. Ordered. - DXA-AXIAL SKELETON. Do this at [facility] where she's had previous bone densities. Amos Floyd MD [facility]10-08-2024 Telephone encounter Note* Telephone Encounter - Va Aguayo RN - 11/28/2023 2:31 PM EDT Patient returned call and given provider's message below. Patient states she does not see Dr. Vann any more-that she was dismissed from them due to Dr. Vann does not work with Plumas's Disease. She states her last Prolia injection was in May and she is due. Patient asking if Dr. Floyd would be agreeable to placing a Prolia injection order for her? Reports she could see a Dr. Gregory in [place], [facility] of [facility], for this but more convenientfor her to ask PCP. Or, does PCP feel she does need any further Prolia injections? Please advise. Thank you. [facility]10-08-20[facility] Telephone encounter Note* Telephone Encounter - Isha Wright LPN - 11/28/2023 1:55 PM EDT Left message to call & speak to nurse. Isha Wrihgt LPN [facility]10-08-2024 Telephone encounter Note* Telephone Encounter - Rocio Elizalde APRN.AIRWAYS CONTROL SPECIALIST - 11/28/2023 1:38 PM EDT It looks like this is being managed by Dr. King Rocio Elizalde APRN.AIRWAYS CONTROL SPECIALIST [facility]10-08-2024 Telephone encounter Note* Telephone Encounter - Jeaneth Rodriguez - 11/28/2023 11:42 AM EDT Pt wondering if Dr. Amor can order a prolia shot for her, please review and advise. Jeaneth Rodriguez November 28, 2023 11:42 AM [facility]09-24-2024 NoteHNO ID: [id number] Author: ECHO MILLER RN Service: ? Author Type: Registered Nurse Type: Progress Notes Filed: 11/14/2023 15:48 Note Text: [facility] NURSE - CHART REVIEW Provider I PCC Action Chart review 06/08/23 [facility] ED for patient had 2 episodes of chest pain approximately 15 minutes, described as a dull pressure in her chest associate with nausea that have since resolved. This happened earlier this morning. Patient is on Coumadin, for repeat lower extremity DVTs. 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 Since [...] then started on heparin drip on Monday early intervention school psychologist 1 AM. She was also found to have UTI and hypercalcemia Pt TT [facility] for ADM with NSTEMI. Pt identified by name and . Reason for Review: Payor request Patient Attributed To: HORACE Payer: PATTIE Chart Review For: Utilization: ED Total Patient High CostTotal Patient High Cost {HIGH COST:169978) Quality measure review Payor request for assistance Action Taken: Data submitted to payor Echo Miller RN November 14, 2023 3:40 [facility]09-24-2024 History of Present illness Narrative* Echo Miller RN - 11/14/2023 3:40 PM EDT [facility] NURSE - CHART REVIEW Provider MEAGANI PCC Action Chart review 06/08/23 [facility] ED for patient had 2 episodes of chest pain approximately 15 minutes, described as a dull pressure in her chest associate with nausea that have since resolved. This happened earlier this morning. Patient is on Coumadin, for repeat lower extremity DVTs. 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 Since [...] then started on heparin drip on Monday early intervention school psychologist 1 AM. She was also foundto have UTI and hypercalcemia Pt TT [facility] for ADM with NSTEMI. Pt identified by name and . Reason for Review: Payor request Patient Attributed To: HORACE Payer: PATTIE Chart Review For: Utilization: ED Total Patient High CostTotal Patient High Cost {HIGH COST:733479) Quality measure review Payor request for assistance Action Taken: Data submitted to payor Echo Miller RN November 14, 2023 3:40 PM documented in this encounterOhiohealth Shelby Hospital09-24-2024 NotePatient Outreach ([facility]) LINDA PERALTA ([id number]) 1945 F Date Time Provider Department 11/14/23 ECHO MILLER [facility] During your visit today, we recorded the following information about you: Echo Miller RN 11/14/2023 3:48 PM Signed [facility] NURSE - CHART REVIEW Provider [facility] Action Chart review 06/08/23 [facility] ED for patient had 2 episodes of chest pain approximately 15 minutes, described as a dull pressure in her chest associate with nausea that have since resolved. This happened earlier this morning. Patient is on Coumadin, for repeat lower extremity DVTs. Patient was recently been in the hospital for Plumas's disease, Plumas's crisis, and been treated for hypercalcemia. Since [...] then started on heparin drip on Monday early intervention school psychologist 1 AM. She was also found to have UTI and hypercalcemia Pt TT [facility] for ADM with NSTEMI. Pt identified by name and . Reason for Review: Payor request Patient Attributed To: HORACE Payer: PATTIE Chart Review For: Utilization: ED Total Patient High CostTotal Patient High Cost {HIGH COST:837842) Quality measure review Payor request for assistance [...] Weakness [R53.1] 05/31/2023 NS (more content not included)...[facility]07-30-2024 History of Present illness Narrative* Kole El, PT - 09/19/2023 12:06 PM EDT Program_ID:[id number] Access Code: [email or web address] URL: [email or web address] Date: 09-19-2023 Prepared By: Kole El Program [...] included: Therapeutic exercise, Neuromuscular re-education, Manual therapy, Self-longterm management, andGait training. Updated 05/31/23 & 07/05/23, 08/09/23, 09/19/23. Goals for Episode of Care: created on 03/28/23 through 09/19/23 [place] in [place] exercise program.-- MET Patient will [...] 1203 Kole El PT documented in this encounterOhiohealth Shelby Hospital07-23-2024 History of Present illness Narrative* Kole El PT - 09/12/2023 11:10 AM EDT Episode [...] 1152 Kole El PT documented in this encounterOhiohealth Shelby Hospital07-19-2024 History of Present illness Narrative* Kole El PT - 09/08/2023 2:32 PM EDT Episode [...] Session Stop Time : 1508 Kole El PT documented in this encounterOhiohealth Shelby Hospital07-10-2024 History of Present illness Narrative* Kole [...] Time : 1448 Session Stop Time : 1528 Kole El PT documented in this encounterOhiohealth Shelby Hospital07-01-2024 History of Present illness Narrative* Jacinda Hamilton, PT - 08/21/2023 11:49 AM EDT Episode [...] 1225 AURELIA Crockett PT documented in this encounterOhiohealth Shelby Hospital06-21-2024 History of Present illness Narrative* Amos Floyd MD - 08/11/2023 10:58 AM EDT This note was created using Postmatesriter. Subjective Linda Peralta is a 78 year old female here with her daughter. Her blood pressure was improving, and she was able to complete physical therapy this week. I had advised her to take amlodipine 5 mg 2 tablets daily, which was from her tow motor mechanic. They had been titrating her dose upward. She was scheduled to see her enterprise application analyst, Dr. Gregory at . He did not [...] Group. Amos Floyd MD documented in this encounterOhiohealth Shelby Hospital06-20-2024 Telephone encounter Note * Telephone Encounter - Isha Wright LPN - 08/10/2023 10:28 AM EDT Below recommendation left on identified vm. Isha Wright LPN [facility]06-20-2024 Miscellaneous Notes* Telephone Encounter - Isha [...] high blood pressure. Patient did not read [employer] message 07/18. Clarify with patient what she is taking for hypertension. Further instructions to follow. Keep appointment this week. documented in this encounterOhiohealth Shelby Hospital06-20-2024 Telephone encounter Note * Telephone Encounter - Amos Floyd MD - 08/10/2023 6:10 AM EDT I think she should increase amlodipine to 10 mg daily. [facility] gave her 90 day supply so take two tablets daily. [facility]06-19[facility] History of Present illness Narrative* Kole [...] of Care: created on 03/28/23 through 08/09/23 [place] in [place] exercise program.-- Met continue to [...] Patient to be seen for Therapeutic exercise (79974), Neuromuscular re-education (04552), Manual therapy (14516), Self-longterm management (98254), Therapeutic activities (69356), Gait Training (85981), Patient/Family/Caregiver Education, General Conditioning PLAN FOR NEXT [...] 957 Kole El PT documented in this encounterOhiohealth Shelby Hospital06-18-2024 Telephone encounter Note * Telephone Encounter [...] to her appt. 08/11/2023. Isha Wright LPN [facility]06-18-2024 Telephone encounter Note* Telephone Encounter - Amos Floyd MD - 08/08/2023 2:42 PM EDT PT not done due to high blood pressure. Patient did not read [employer] message 07/18. Clarify with patient what she is taking for hypertension. Further instructions to follow. Keep appointment this week. [facility]06-12-2024 History of Present illness Narrative* Kole El, [...] toward set goals. PLAN FOR NEXT VISIT: SD. SUBJECTIVE: Patient reports starting to take amlodipine 2.[address] Mariel MD. BP readings have been higher in [...] Intra BP 1: 164/108 (Leaving Appt.) TREATMENT: [facility] Management: 1: *Subjective assessment taken, discussed patient's [...] 931 Kole El PT documented in this encounterOhio[facility]05-29-[facility]24 History of Present illness Narrative* Kole El, PT - 07/19/2023 9:07 AM EDT Episode [...] 2 weeks ago she tried to see Capsule Inspector but reports the physician wasn't there and was rescheduled 07/26/23 @2pm. Patient reports she stopped taking a medication prescribed to her (she doesn't know the name off hand) because it was making her BP reading to high - states her PCP and Capsule Inspector are not aware of this. Pain: Not Assessed this visit. OBJECTIVE MEASURES WITH LEVEL OF FUNCTION: Vitals BP: 164/108 (Resting.) Pulse: 85 Pre BP: 163/117 (12 Minutes into appt after sitting and discussing BP and medications.) Intra BP 1: 170/116 (Leaving Appt.) TREATMENT: [facility] Management: 1: *Subjective assessment taken, BP readings [...] Time (minutes): 20 Session Start Time : 899 Session Stop Time : 919 Kole El PT documented in this encounterOhio[facility] History of Present illness Narrative* Kole El PT - 07/05/2023 9:47 AM EDT Images [...] of Care: created on 03/28/23 through 08/09/23 [place] in home exercise program.-- Met continue to [...] Patient to be seen for Therapeutic exercise (59666), Neuromuscular re-education (80578), Manual therapy (24182), Self-longterm management (71014), Therapeutic activities (24890), Gait Training (35769), Patient/Family/Caregiver Education, General Conditioning PLAN FOR NEXT [...] resting above clinic guidelines for physical activity. [facility] Management: 1: *Progress check & subjective assessment [...] Time (minutes): 30 Session Start Time : 0945 Session Stop Time : 1015 Kole El PT documented in this encounterOhio[facility]05-10-[facility]24 History of Present illness Narrative* Amos Floyd MD - 06/30/2023 9:49 AM EDT This note was created using Postmates[employer]. Subjective Linda Peralta is a 78 year old female was here with her daughter. She started having issues with hypercalcemia and weakness 05/14. Her enterprise application analyst sent her to the ED for IV [...] (Arteriosclerotic Heart Disease) Dvt (Deep Venous Thrombosis) ([facility]) Chronic Nonallergic Rhinitis Pure hypercholesterolemia Atopic Neurodermatitis Hypertension Stage 3b Chronic Kidney Disease (Hcc) Hypertensive Kidney Disease With Stage 3b Chronic Kidney Disease (Hcc) Age-Related Osteoporosis With Current Pathological Fracture With Routine Healing Closed Displaced Fracture of Fifth Metatarsal Bone of Right Foot Gait Abnormality Physical Deconditioning Weakness Nstemi (Non-St Elevated Myocardial Infarction) ([facility]) Adrenal Insufficiency ([facility]) Nonrheumatic Aortic Valve Stenosis Current Outpatient Medications [...] (primary diagnosis) Follow up with endocrinology at [facility]. Labs ordered to facilitate and [...] cardiology. Amos Floyd MD documented in this encounterOhio[facility]05-08-20[facility] History of Present illness Narrative* Kole [...] 1202 Kole El PT documented in this encounterOhiohealth Shelby Hospital05-01-2024 History of Present illness Narrative* Kole El PT - 06/21/2023 1:42 PM EDT Program_ID:[id number] Access Code: [email or web address] URL: [email or web address] Date: 06-21-2023 Prepared By: Kole El Program [...] 10 reps * Kole El PT - 06/21/2023 1:05 PM EDT Episode [...] RLE. 4: Standing Marches: 2x10 ea. 5: [place] Carries: 2 Laps of 60 Feet, 8#db [...] 1342 Kole El PT documented in this encounterOhiohealth Shelby Hospital04-29-2024 Telephone encounter Note * Telephone Encounter - Delfino Hannah APRN.AIRWAYS CONTROL SPECIALIST - 06/19/2023 10:44 AM EDT Please make a hospital follow up appointment to be seen by Dr. Baig or Nurse practitioner in 6-8 weeks. Thank you, Delfino Hannah APRN.AIRWAYS CONTROL SPECIALIST [facility] Work Phone: [phone]) 769-956404-29-2024 Miscellaneous Notes* Telephone Encounter - Delfino Hannah APRN.CNP - 06/19/2023 10:44 AM EDT Please make a hospital follow up appointment to be seen by Dr. Baig or Nurse practitioner in 6-8 weeks. Thank you, Delfino Hannah APRN.TELLY documented in this encounterOhiohealth Shelby Hospital04-24-2024 History of Present illness Narrative* Kole [...] recent hospital admission. She demonstrated difficulty with git-ks-vckhpa. The patient will continue to benefit from ongoing skilled physical therapy to progress toward set goals. PLAN FOR NEXT VISIT: Gross LE Strengthening; Endurance and Conditioning following hospital admission; take vitals throughout. SUBJECTIVE: Patient reports hospital admission at [facility] for cardiac issues/NSTEMI, also found with UTI and hypercalcemia. Was on Heparin in the hospital. Was admitted in [facility] since last 06/08/23. Physicians have since released her and stated to continue physical activity as able. States she is now on a protein diet. States taking BP today 138/83 this a.m. Pain: Pain Pain Level: 0 Post Treatment Pain Post Treatment Pain Level: 0 OBJECTIVE MEASURES WITH LEVEL OF FUNCTION: Decreased eccentric control down to chair from [id number]. Vitals BP: 157/106 (Initial.) Pulse: 87 SpO2: 98 % Additional Vitals: Yes Pre Assessment: BP Pre BP: 169/104 (84bpm. After Step-Ups.) Intra Assessment 1: BP Intra 1 Intra BP 1: 174/104 (After Dtk-sa-Xiolyn; ended session following.) Intra Assessment 2: BP Intra 2 Intra BP 2: 154/104 (BP before leaving.) TREATMENT: Therapeutic Exercise: 1: Warm Up on SCI-FIT: 6 Minutes (Vitals and Subjective Taken: Direct 1:1.) 2: 6 Fwd Stepups: 2x12 ea. leg. 3: 6 Lateral Stepups: 2x12 ea. 4: Chair Tex-vj-otpmmu: 2x5. (Patient required assist from 2 UEs [...] 1155 Kole El PT documented in this encounterOhiohealth Shelby Hospital04-18-2024 Miscellaneous Notes* Telephone Encounter - Jorge [...] and currently taking hydrocortisone, prescribed by in [place]. Today dealing with CP on right side [...] pressure 7. CARDIAC RISK FACTORS: Hx silent [place]. 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 : Post menopause. Protocols used: Chest Kiif-JNRJJ-BC documented in this encounterOhiohealth Shelby Hospital04-18-2024 Telephone encounter Note * Telephone Encounter - Thelma Suarez LPN - 06/08/2023 11:03 AM EDT Message below given to daughter. Daughter reports pt is having chest pain and problems swallowing. RN to triage call further. Thelma Suarez LPN [facility]04-18-2024 Miscellaneous Notes* Telephone Encounter - Thelma [...] pulse 81 sitting 9 am 99/69 standing 06/04 7 am 133/91 pulse 88 sitting 1015 am 121/75 pulse 60 standing 16 645 am 138/96 pulse 88 sitting 1250 pm 147/100 pulse 103 standing 06/06 7 am 140/87 pulse 82 sitting 9 am 80/75 pulse 104 standing 1120 am 150/76 pulse 110 standing * Telephone Encounter - Torstne Vora MA - 06/07/2023 2:42 PM EDT Left message to call office. 06/07/2023 2:42 PM * Telephone Encounter - Torsten Vora MA - 06/07/2023 2:37 PM EDT ----- Message from Rocio Elizalde APRN.AIRWAYS CONTROL SPECIALIST sent at 05/31/2023 12:58 PM EDT ----- Please call patient for home blood pressure readings documented in this encounterOhiohealth Shelby Hospital04-18-2024 Telephone encounter Note * Telephone Encounter - Prachi Farrar MA - 06/08/2023 9:15 AM EDT Left message for return call. [facility]04-18-2024 Telephone encounter Note* Telephone Encounter - Rocio Elizalde APRN.CNP - 06/08/2023 8:30 AM EDT She should continue with the midodrine until she sees Dr. Floyd on 06/29, I will send in a refill to get her through until this appointment Rocio Elizalde APRN.AIRWAYS CONTROL SPECIALIST [facility]04-17-2024 Telephone encounter Note* Telephone Encounter - Prachi Farrar MA - 06/07/2023 6:24 PM EDT Patient states she is to have blood work in [address] Gregory in 4 weeks. No medicationchanges. [facility]04-17-2024 Telephone encounter Note* Telephone Encounter - Rocio Elizalde APRN.CNP - 06/07/2023 5:46 PM EDT BP looks better. Did she have follow-up with Dr. Gregory? Did he make any medication changes? /Rocio Elizalde APRN.CNP [facility]04-17-2024 Telephone encounter Note* Telephone Encounter - Milagros Burton LPN - 06/07/2023 3:49 PM EDT Patient returned call and gave me list of readings. 05/30 8 am 120/64 pulse 105 sitting 06/02 8 am 148/88 pulse 81 sitting 9 am 99/69 standing 06/04 7 am 133/91 pulse 88 sitting 1015 am 121/75 pulse 60 standing 06/05 645 am 138/96 pulse 88 sitting 1250 pm 147/100 pulse 103 standing 06/06 7 am 140/87 pulse 82 sitting 9 am 80/75 pulse 104 standing 1120 am 150/76 pulse 110 standing [facility]04-17-2024 Telephone encounter Note* Telephone Encounter - Torsten Vora MA - 06/07/2023 2:42 PM EDT Left message to call office. 06/07/2023 2:42 PM [facility]04-17-2024 Telephone encounter Note* Telephone Encounter - Torsten Vora MA - 06/07/2023 2:37 PM EDT ----- Message from Rocio Elizalde APRN.CNP sent at 05/31/2023 12:58 PM EDT ----- Please call patient for home blood pressure readings [facility]04-10-2024 Miscellaneous Notes* Telephone Encounter - Kelley Rivera LPN - 05/31/2023 2:18 PM EDT [facility] infusion suite called asking for dx for INR. In review dx of DVT code was given per problem list. documented in this encounterOhiohealth [facility] Hospital04-10-2024 History of Present illness Narrative* Rocio Elizalde APRN.CNP - 05/31/2023 1:01 PM EDT PT requesting orders Rocio Elizalde APRN.CNP documented in this encounterOhiohealth Shelby Hospital04-10-2024 History of Present illness Narrative* Rocio Elizalde APRN.CNP - 05/31/2023 11:26 AM EDT CC: Patient presents with: Hospital F/U: High calcium HPI Linda Peralta is a 78 year old female who presents today for above. Patient was admitted to 05/23 to 05/25 for elevated calcium, weakness and hypotension. She had been treated for this a couple weeks prior at [facility] with Zometa infusion. Levels had initially improved but were high again on repeat outpatient labs. She has a history of idiopathic hypercalcemia. She was treated with Calcitonin during this admission which lowered ionized calcium from 1.53 to 1.32. Her enterprise application analyst is Dr. Gregory at , she is scheduled for follow-up with him on 06/05. Her main concern today is weakness, lightheadedness and hypotension. She was taken off blood pressure medications by her tow motor mechanic due to hypotension, last dose was over two weeks ago. Checking her BP at home, fluctuates between 100's/60's to 130's/80's. She does feel lightheaded when her BP is low. Weakness has been an ongoing issue however she was starting to improve with PT until now. She has a history of Plumas's disease. Her Cortef dose was being titrated down by previous enterprise application analyst due to bone loss which is also [...] eczema, due to unspecified cause 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Plumas's disease Cystocele, midline 07/23/2007 Diverticulosis of colon (without mention of hemorrhage) DVT (deep venous thrombosis) ([facility]) 03/23/2012 DVT of lower extremity (deep venous thrombosis) ([facility]) 03/27/2009 Esophageal reflux Gallstones 03/06/2016 Hypercalcemia 03/19/2009 Hypertension NSTEMI (non-ST elevated myocardial infarction) ([facility]) 04/27/2009 Cardiac cath normal Other adrenal [...] W/COLLJ SPEC WHEN PFRMD 03/26/2010 Inpatient at [facility] ESOPHAGOGASTRODUODENOSCOPY TRANSORAL DIAGNOSTIC 02/2002 EGD ESOPHAGOGASTRODUODENOSCOPY TRANSORAL [...] dupilumab 300 mg/2 mL subcutaneous pen injector ([email or web address]) .[id number] fluticasone (FLONASE) 50 mcg/actuation nasal spray Use [...] Age of Onset Coronary Artery Disease Mother [place] at 87y.o. Hypertension Mother Stroke Father Coronary [...] ICD10: I95.89 (primary diagnosis) Suspect secondary to Plumas's and possibly decreased dose of Cortef. Discussed with patient's PCP,the following recommendations reviewed with patient and daughter: IV fluid bolus, will fax orders to [facility] as there is no availability within [facility]. Start Midodrine, see orders. Continue to maintain adequate hydration to include not only water but other liquids as well to avoid hemodilution. Continue to monitor BP at home, we will call her next week for readings Follow-up with enterprise application analyst next week as scheduled Follow-up with PCP in one month 2. 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 Hypercalcemia - ICD9: 275.42, ICD10: E83.52 As above Prescription instructions reviewed with patient as applicable. Potential red flag symptoms discussed with the patient. Reviewed appropriate action plan to take if red flag symptoms occur. Patient agreeable to treatment plan. Rocio Elizalde APRN.AIRWAYS CONTROL SPECIALIST documented in this encounterOhiohealth [facility] Hospital04-10-2024 History of Present illness Narrative* Kole El, PT - 05/31/2023 10:27 AM EDT Program_ID:[id number] Access Code: [email or web address] URL: [email or web address] Date: 05-31-2023 Prepared By: Kole El Program [...] of Care: created on 03/28/23 through 07/05/23 [place] in home exercise program.-- Met continue to [...] Patient to be seen for Therapeutic exercise (27322), Neuromuscular re-education (95939), Manual therapy (68721), Self-longterm management (55802), Therapeutic activities (36263), Gait Training (74244), Patient/Family/Caregiver Education, General Conditioning PLAN FOR NEXT [...] program to facilitate proper performance and compliance. [facility] Management: 1: *Longer discussion regarding recent decline [...] Time : 944 Session Stop Time : 1032 Kole El PT documented in this encounterOhiohealth [facility]04-05-2024 History of Present illness Narrative* Temitope [...] Unit/Bed: 1008/1008-A Date of : 1945 Acct: [id number] Admitting Diagnosis: Hypercalcemia [E83.52] Date: 05/24/2023 Hospital [...] kidney disease (CMS/HCC) DVT (deep venous thrombosis) (CMS/HCC) Plumas's disease (CMS/HCC) Primary hypertension Pure hypercholesterolemia Urinary tract infection, [...] Nightly warfarin, 2.5 mg, oral, Daily * Kacey Archer RN - 05/25/2023 12:08 PM EDT 05/25/23 1208 Current Planned Discharge Disposition Current Planned Discharge Disposition Home Patient lives alone, however is in agreement with plan to discharge home, no further needs. Patientis self sufficient, has family near by for assistance if needed. * Raisa Frederick APRN-AIRWAYS CONTROL SPECIALIST - 05/25/2023 10:11 AM EDT Daily Progress [...] C (97 F), temperature source Temporal, resp. rate24, height 1.575 m (5' 2), weight 64.1 [...] 7 days Lab Units 05/25/23 0002 05/24/2343405/24/23 0306 SODIUM mmol/L 139 138 137 POTASSIUM mmol/L [...] 7 days Lab Units 05/25/23 0002 05/24/2343405/24/23 0306 SODIUM mmol/L 139 138 137 POTASSIUM mmol/L [...] from last 7 days Lab Units 05/25/23 0447 05/24/23 0935 05/24/23 0306 INR 2.0* 2.2* 2.2* [...] note, this documentation is completed using the [facility] Dictation system (voice recognition software). There may [...] came to the hospital on 05/23 from [facility] [facility]. dx: hypercalcemia. test/labs : calcium 11.1. [...] Balance Dynamic Standing-Comments: fair Strength: Strength Comments: RO munoz 4/5 Hand Function: Gross Grasp: Functional Extremities: RUE RUE : Within Functional Limits and LUE LUE: Within Functional Limits Outcome Measures:[facility] Daily Activity Putting on and taking off [...] disease with stage 3b chronic kidney disease ([facility]/HCC) DVT (deep venous thrombosis) ([facility]/HCC) Plumas's disease ([facility]) Primary hypertension Pure hypercholesterolemia Urinary tract infection, [...] came to the hospital on 05/23 from [facility]. dx: hypercalcemia. test/labs : calcium 11.1. Home [...] LLE : Within Functional Limits Outcome Measures: [facility] Basic Mobility Turning from your back to [...] Education Comments No comments found. * Raisa Frederick, UNIT AID-AIRWAYS CONTROL SPECIALIST - 05/24/2023 2:23 PM EDT Daily Progress Note Linda Peralta is a 78 y.o. female on day 1 of admission presenting with Hypercalcemia. Subjective Patient seen sitting up in the chair without any complaints. Patient was transferred from [facility] after found to have elevated [...] 7 days Lab Units 05/24/23 0435 05/24/23 0307 WBC AUTO x10*3/uL 9.6 9.1 RBC [...] muscular weakness History of donor nephrectomy History Plumas's disease HTN UTI GERD History of PE/DVT on warfarin -Regular diet -IV fluids 100 mL x 24 hours -Continuous telemetry -Check PTH, ionized calcium, vitamin D, CMP, CBC, lactate -Endocrine consult -Calcium 11.1 down from 11.5, patient received Zometa on 3/25 -PTH 11.2 -UA sent -Continue Keflex 500 twice daily for UTI -Resume home meds when appropriate -PT/OT evaluation -TCC for discharge planning CODE STATUS: DNR CCA DVTp: Continue Coumadin PLAN: Home NICOLE Wilkinson Plan of care was discussed extensively with patient. Patient verbalized understanding through teachback method. All question and concerns addressed upon examination. Of note, this documentation is completed using the [employer] system (voice recognition software). There may be spelling and/or grammatical errors that were not corrected prior to final submission. * Kacey Archer RN - 05/24/2023 10:01 AM EDT [...] be discharged to: Home Patient is from [place], is here d/t hypercalcemia and her provider [...] disease with stage 3b chronic kidney disease ([facility]) Plumas's disease ([facility]) Urinary tract infection, site not specified Assessment [...] continue LOS: 1 day documented in this [facility] Work Phone: 1(283) 985-693504-05-2024 Hospital course Narrative* NICOLE Wilkinson - 05/26/2023 12:30 PM EDT Discharge Diagnosis [...] a significant past medical history of hypercalcemia, Plumas's disease, HTN, GERD, PE/DVT on warfarin presenting to [facility] from [place] [facility] after found to have elevated ionized calcium on routine lab work. Patient presented to [facility] for IV fluids, UAreportedly showed evidence of [...] future appointments. NICOLE Wilkinson documented in this [facility] Work Phone: 1(288) 287-128704-04-2024 Hospital Note* Hospital Course - NICOLE Wilkinson - 05/25/2023 11:49 AM EDT Linda Peralta is a 78 y.o. female with a significant past medical history of hypercalcemia, Plumas's disease, HTN, GERD, PE/DVT on warfarin presenting to [facility] from [place] after found to have elevated ionized calcium on routine lab work. Patient presented to [facility] for IV fluids, UAreportedly showed evidence of [...] On day of discharge patient hemodynamically stable. [facility] Work Phone: [phone]) 603-285004-04-2024 Miscellaneous Notes* Hospital Course - NICOLE Wilkinson - 05/25/2023 11:49 AM EDT Linda Peralta is a 78 y.o. female with a significant past medical history of hypercalcemia, Plumas's disease, HTN, GERD, PE/DVT on warfarin presenting to [facility] from [place] after found to have elevated ionized calcium on routine lab work. Patient presented to [facility] for IV fluids, UAreportedly showed evidence of [...] discharge patient hemodynamically stable. [facility] this [facility] Work Phone: 1(745) 657-134104-04-2024 Hospital Discharge instructions* Discharge Instructions* NICOLE Wilkinson - 05/25/2023 11:45 AM EDT Thank you for choosing [facility]. It has been a pleasure taking part in your medical care. Please follow up with your primary care provider as instructed. If your symptoms should persist or worsen, please contact your primary care physician, or in the case of an emergency proceed to the nearest Emergency Room for further care. If you have any questions about the care you received, please call [facility] at . Thank you again! TELLY Kline documented in this [facility] Work Phone: [phone]) 465-873204-03-2024 Consult note* Alexander Gregory MD - 05/24/2023 [...] IV fluids and transferred her over to [facility]. Here she has been feeling well she has never felt any problems she has been completely asymptomatic throughout the whole episode She was treated in addition with IV fluids and started calcitonin. There is no cause yet determinedas to why she has the hypercalcemia As per admission Linda Peralta is a 78 y.o. female with a significant past medical history of hypercalcemia, Plumas's disease, HTN, GERD, PE/DVT on warfarin presenting to [facility] from [place] after found to have elevated ionized calcium on routine lab work. Patient presented to [facility] for IV fluids, UAreportedly showed evidence of [...] with patient and daughter at bedside Souleymane Lopez [POA] [phone]; patient has advanced directives - not available in [facility], family encouraged to bring to hospital [...] Colin Gregory MD FACE Office phone - [phone] Fax - [phone] Address: [address] [facility] [facility] [address] Address: [address] [facility] [address] 05/24/2023 9:13 PM [facility] Work Phone: 1(951) 648-577804-03-2024 Consult note* Alexander Gregory MD - 05/24/2023 [...] IV fluids and transferred her over to [facility]. Here she has been feeling well she has never felt any problems she has been completely asymptomatic throughout the whole episode She was treated in addition with IV fluids and started calcitonin. There is no cause yet determinedas to why she has the hypercalcemia As per admission Linda Peralta is a 78 y.o. female with a significant past medical history of hypercalcemia, Plumas's disease, HTN, GERD, PE/DVT on warfarin presenting to [facility] from [place] after found to have elevated ionized calcium on routine lab work. Patient presented to [facility] for IV fluids, UAreportedly showed evidence of [...] with patient and daughter at bedside Souleymane Lopez [POA] [phone]; patient has advanced directives - not available in [employer], family encouraged to bring to hospital or [...] Colin Gregory MD FACE Office phone - [phone] Fax - [phone] Address: [address] [place] [id number] Address: [address] [place] [address] 05/24/2023 9:13 PM documented in this [facility] Work Phone: 1(141) 285-251304-03-2024 History and physical note* Shakira Antunez APRN-AIRWAYS CONTROL SPECIALIST - 05/24/2023 2:11 AM EDT Medical Group History and Physical ASSESSMENT & PLAN: Hypercalcemia Hx donor nephrectomy Hx Plumas's disease - IVF 100ml/hr x1day; regular diet - tele x 1day d/t above dx - labs: PTH, ionized ca, vit D, CMP, CBC, lactate - Consult to Endocrine - known to Dr Gregory UTI symptom of increased frequency and urgency, no dysuria - Send UA - started on keflex 500 BID - from [facility] - cont this admission - noted [...] for upload POA - daughter - Souleymane Lopez [phone] VTE Prophylaxis: Resume warfarin Shakira Antunez APRN-AIRWAYS CONTROL SPECIALIST HISTORY OF PRESENT ILLNESS: Chief Complaint: hypercalcemia History Of Present Illness: Linda Peralta is a 78 y.o. female with a significant past medical history of hypercalcemia, Plumas's disease, HTN, GERD, PE/DVT on warfarin presenting to [facility] from [facility] after found to have elevated ionized calcium on routine lab work. Patient presented to [facility] for IV fluids, UAreportedly showed evidence of [...] with patient and daughter at bedside Souleymane Lopez [POA] [phone]; patient has advanced directives - not available in [facility], family encouraged to bring to hospital [...] IVF, labs ordered, Endo consult Adrenal hypofunction ([facility]) Overview Signed 05/24/2023 2:02 AM by NICOLE [...] (Neuro [facility]), on florinef 0.1 mg [facility], prednisone 5 mg [facility]. (): admitted for loss of consciousness, orthostatic, [...] disease with stage 3b chronic kidney disease ([facility]) DVT (deep venous thrombosis) ([facility]) Overview Signed 05/24/2023 2:02 AM by NICOLE Ahmadi 2009 Plumas's disease ([facility]) Overview Signed 05/24/2023 2:02 AM by NICOLE [...] mg) by mouth once daily. 03/23/20 Yes HistoricalProviderMD cephalexin (Keflex) 500 mg capsule Take 1 capsule (500 mg) by mouth 2 times a day. Historical Provider, simvastatin (Zocor) 20 mg tablet Take 1 tablet (20 mg) by mouth once daily at bedtime. Historical Provider, LABS AND IMAGING: Labs: No results found for this or any previous visit (from the past 24 hour(s)). Imaging: No orders to display [facility] Work Phone: 1(483) 275-385204-03-2024 History and physical note* NICOLE Ahmadi - 05/24/2023 2:11 AM EDT Medical Group History and Physical ASSESSMENT & PLAN: Hypercalcemia Hx donor nephrectomy Hx Plumas's disease - IVF 100ml/hr x1day; regular diet - tele x 1day d/t above dx - labs: PTH, ionized ca, vit D, CMP, CBC, lactate - Consult to Endocrine - known to Dr Gregory UTI symptom of increased frequency and urgency, no dysuria - Send UA - started on keflex 500 BID - from [facility] - cont this admission - noted [...] for upload POA - daughter - Souleymane Lopez [phone] VTE Prophylaxis: Resume warfarin Shakira Antunez, UNIT AID-AIRWAYS CONTROL SPECIALIST HISTORY OF PRESENT ILLNESS: Chief Complaint: hypercalcemia History Of Present Illness: Linda Peralta is a 78 y.o. female with a significant past medical history of hypercalcemia, Plumas's disease, HTN, GERD, PE/DVT on warfarin presenting to [facility] from [facility] after found to have elevated ionized calcium on routine lab work. Patient presented to [facility] for IV fluids, UAreportedly showed evidence of [...] with patient and daughter at bedside Souleymane Lopez [POA] [phone]; patient has advanced directives - not available in [facility], family encouraged to bring to hospital [...] IVF, labs ordered, Endo consult Adrenal hypofunction ([facility]) Overview Signed 05/24/2023 2:02 AM by NICOLE [...] florinef 0.1 mg MWF, prednisone 5 mg Sat Sun. (): admitted for loss of consciousness, orthostatic, [...] disease with stage 3b chronic kidney disease ([facility]) DVT (deep venous thrombosis) ([facility]) Overview Signed 05/24/2023 2:02 AM by NICOLE Ahmadi 2009 Plumas's disease ([facility]) Overview Signed 05/24/2023 2:02 AM by NICOLE [...] by mouth once daily. 03/23/20 Yes Historical ProviderMD warfarin (Coumadin) 2.5 mg tablet Take 1 tablet (2.5 mg) by mouth once daily. 03/23/20 Yes HistoricalProviderMD cephalexin (Keflex) 500 mg capsule Take 1 capsule (500 mg) by mouth 2 times a day. Historical Provider, simvastatin (Zocor) 20 mg tablet Take 1 tablet (20 mg) by mouth once daily at bedtime. Historical Provider, LABS AND IMAGING: Labs: No results found for this or any previous visit (from the past 24 hour(s)). Imaging: No orders to display documented in this encounterC[facility] Work Phone: 1(105) 449-795804-02-2024 Telephone encounter Note* Telephone Encounter - Elijah Freed MD - 05/23/2023 6:53 PM EDT Called by lab regarding patient's critical ionized calcium level of 1.69 which is up from 1.6 on 05/11. Noted patient was sent to the ER by her enterprise application analyst with this lower reading on 05/11. Called patient who states that she does feel dizzy, mild confusion, muscle weakness, increased thirst. Recommended patient return to the ER for further workup and treatment. Patient will have her daughter drive her. Called and spoke with Dr Lott at [facility] and was given report. [facility] Work Phone: 1(328) 980-630004-02-2024 Miscellaneous Notes* Telephone Encounter - Elijah Freed MD - 05/23/2023 6:53 PM EDT Called by lab regarding patient's critical ionized calcium level of 1.69 which is up from 1.6 on 05/11. Noted patient was sent to the ER by her enterprise application analyst with this lower reading on 05/11. Called patient who states that she does feel dizzy, mild confusion, muscle weakness, increased thirst. Recommended patient return to the ER for further workup and treatment. Patient will have her daughter drive her. Called and spoke with Dr Lott at [facility] ER and was given report. documented in this encounterOhiohealth Shelby Hospital04-02-2024 Discharge summary Author Ankush Noguera [facility] May 23, 2023 10:48pm Note Date/Time May 23, 2023 10:4 2pm [facility] Medical Records Department [address] [place] [address] Emergency Department Summary 05/23/23 MR#: [id number] Acct: [id number] Name: LINDA PERALTA Rep #:[id number] : 1945 78 From: Ankush Noguera DO PCP: Dr. Amos Floyd MD Status:R EG ER Location: ED HPI History of Present Illness Chief Complaint: Abn Labs Narrative Narrative: 78-year-old female with history of Plumas's disease who currently is treated byDr. Gregory from [facility] for this. Patient was seen [...] She does states she feels generally weak. [facility] Medical History Acute electrocardiogram changes Acute prerenal azotemia Plumas disease Aortic stenosis Atopic dermatitis 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, stage 3 Closed head injury (03/20/20) Cystocele with rectocele Elevated serum creatinine Essential (primary) hypertension Frequent falls History of DVT (deep vein thrombosis) History of kidney cancer History of non-ST elevation myocardial infarction (NSTEMI) (04/2009) History of pulmonary embolism Hypercalcemia Hyperlipidemia Hypoglycemia (03/20/20) Hypokalemia Hypotension shelter (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 MVP (mitral valve [...] mg/mL subcutaneous syringe (Prolia) 60 mg subcut [id number] #1 mL 11/24/22 [Rx Last Taken Unknown] [...] dupilumab 200 mg/1.14 mL subcutaneous pen injector (Dupixent) 200 mg subcut .COMPLEX 05/23/23 [History Last [...] Other History of DVT (deep vein thrombosis) shelter (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 Surgical History H/O [...] safe at home: Yes additional social history: Alexander- Retired patient is retired ROS ROS ED Constitutional Constitutional ED: Denies chills, fever(s) [...] felt she was counseled to follow-up with aprpending sale to [facility] care provider at night that she got back to the emergency room today dueto the repeat lab work. He recommended admission for IV fluids and offered to have the patient admitted to [facility] versus here at [facility] however patient expressed her previous history of Dr. Vann from endocrinology was not good and she preferred to be transferred over to [place] where her enterprise application analyst is for further testing and treatment. Currently awaiting follow-up call from the transfer line. She will need to be transferred but I believe she is stable for transfer via car and Dr. Gregory agreed but we are currently awaiting a bed assignment. Patient will be transferred when a bed is obtained. Impression: 1. Hypercalcemia 2. Generalized weakness 3. History of Plumas's disease Lab Data Labs: Laboratory Results - last 24 hr 05/23/23 20:30 WBC 9.5 RBC 5.07 Hgb 14.5 Hct 43.3 MCV 85.4 MCH 28.6 MCHC 33.5 RDW Std Deviation 44.1 H RDW Coeff of Slava 14.2 Plt Count 271 MPV 10.9 Immature Gran % (Auto) 0.900 Neut % (Auto) 59.7 Lymph % (Auto) 19.2 Burnet % (Auto) 9.7 Eos % (Auto) 9.7 [...] x-ray examination of the chest. Electronically Signed: Chino Rendon MD at 21:40 EDT Reading Location ID and State: [address] [place] [address] Tel , Service support , Discharge Plan Triage Chief Complaint: Abn [...] Prolia 60 mg/mL syringe 60 mg subcut [id number] Qty: 1 1RF amlodipine 2.5 mg tablet [...] your Primary Care Provider. Call [facility] ([phone]) or report to the closest Emergency Room. Call 911 if necessary. 05/23/232247 <Electronically signed by Ankush Noguera DO> Cosigner Signature (if applicable): CC: Dr. Amos Floyd MD ~ Signed [facility] Work Phone: 1(908) 266-718604-02-2024 History of Present illness Narrative* Rocio Elizalde, UNIT AID.AIRWAYS CONTROL SPECIALIST - 05/23/2023 12:24 PM EDT CC: Patient presents with: ED Follow-up: [facility] ER HPI Linda Peralta is a 78 year old female who presents today with her daughter for above. Patient hadlab work ordered by her enterprise application analyst Dr. Gregory on 05/14 which revealed critically high Calcium/ionized calcium. She was instructed to go to the ER immediately that day for treatment. She was treated at [facility] ER with IV fluids and Zometa infusion. [...] eczema, due to unspecified cause 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Plumas's disease Cystocele, midline 07/23/2007 Diverticulosis of colon (without mention of hemorrhage) DVT (deep venous thrombosis) ([facility]) 03/23/2012 DVT of lower extremity (deep venous thrombosis) ([facility]) 03/27/2009 Esophageal reflux Gallstones 03/06/2016 Hypercalcemia 03/19/2009 Hypertension NSTEMI (non-ST elevated myocardial infarction) ([facility]) 04/27/2009 Cardiac cath normal Other adrenal [...] W/COLLJ SPEC WHEN PFRMD 03/26/2010 Inpatient at [facility] ESOPHAGOGASTRODUODENOSCOPY TRANSORAL DIAGNOSTIC 02/2002 EGD ESOPHAGOGASTRODUODENOSCOPY TRANSORAL DIAGNOSTIC 05/01/2009 EGD ESOPHAGOGASTRODUODENOSCOPY TRANSORAL DIAGNOSTIC 11/18/2009 EGD, EXC CYST/ABERRANT BREAST TISSUE OPEN / LESION 1960 benign IVC FILTER PERCUTANEOUS 03/31/2009 [...] dupilumab 300 mg/2 mL subcutaneous pen injector ([email or web address]) .[id number] meclizine (ANTIVERT) 25 mg tab Take 1 [...] Age of Onset Coronary Artery Disease Mother [place] at 87y.o. Hypertension Mother Stroke Father Coronary [...] REVIEWED: Most recent labs Outside chart from [facility] ER reviewed. ASSESSMENT/PLAN: 1. Hypercalcemia - ICD9: [...] Patient agreeable to treatment plan. Rocio Elizalde APRN.AIRWAYS CONTROL SPECIALIST documented in this encounterOhiohealth Shelby Hospital04-02-2024 Miscellaneous Notes* Telephone Encounter - Carlos Roe RN - 05/23/2023 11:37 AM EDT Pt calling in again regarding below. Scheduled ER f/u visit for today at 1220 with Rocio Elizalde. * Telephone Encounter - Milagros Burton LPN - 05/22/2023 8:49 AM EDT Patient calling with question she was in [facility] ER on 05/14. She was dehydrated and low blood pressure.She said her calcium level was elevated, she was given IV medication to lower the calcium. Patient asking if she should do more lab work to recheck her calcium level? Please advise documented in this encounterOhiohealth Shelby Hospital04-02-2024 Miscellaneous Notes* Telephone Encounter - Carlos Roe RN - 05/23/2023 10:42 AM EDT Pt calling in again about repeating labs and concerns. ER f/u appt given for today with Rocio Elizalde at 1220 pm. documented in this encounterOhiohealth Shelby Hospital03-25-2024 Discharge summary Author Juan Alberto Mcclendon [facility] May 15, 2023 8:38pm Note Date/Time May 15, 2023 3:1 7pm [facility] Medical Records Department [address] [place] [address] Emergency Department Summary 05/15/23 MR#: [id number] Acct: [id number] Name: LINDA PERALTA Rep #:[id number] : 1945 78 From: Juan Alberto Mcclendon MD PCP: Dr. Amos Floyd MD Status:R EG ER Location: ED HPI History of Present Illness Chief Complaint: Abn Labs Informant: patient and family (daughter) Narrative Narrative: Patient sent in by her enterprise application analyst Dr. Gregory at for high calcium level [...] because of her abnormal labs. She has Plumas's syndrome, she is on daily hydrocortisone 20 [...] partly which led to the diagnosis of Plumas's disease, however here in triage her blood pressure 68/51. [facility] Medical History Acute electrocardiogram changes Acute prerenal azotemia Plumas disease Aortic stenosis Atopic dermatitis 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, stage 3 Closed head injury (03/20/20) Cystocele with rectocele Elevated serum creatinine Essential (primary) hypertension Frequent falls History of DVT (deep vein thrombosis) History of kidney cancer History of non-ST elevation myocardial infarction (NSTEMI) (04/2009) History of pulmonary embolism Hypercalcemia Hyperlipidemia Hypoglycemia (03/20/20) Hypokalemia Hypotension shelter (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 MVP (mitral valve [...] mg/mL subcutaneous syringe (Prolia) 60 mg subcut [id number] #1 mL 11/24/22 [Rx Last Taken Unknown] [...] Other History of DVT (deep vein thrombosis) 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 After receiving the labs back, I will call the enterprise application analyst prior to administering any of these medications. [...] as well. Called to discuss with her enterprise application analyst Dr. Gregory, discussed with his PA who [...] (Auto) 65.8 Lymph % (Auto) 15.8 L Burnet % (Auto) 10.7 H Eos % (Auto) [...] EDT , Management Discussion w/another healthcare provider: Hard Tile Setter Apprentice (Endocrine ) Discharge Plan Triage Chief Complaint: Abn Labs ED Provider: Juan Alberto Mcclendon Dx/Rx/DC Orders Clinical Impression: Hypercalcemia, Plumas disease, Transient hypotension Instructions: Hypercalcemia Dc Prescriptions: [...] Prolia 60 mg/mL syringe 60 mg subcut [id number] Qty: 1 1RF amlodipine 2.5 mg tablet [...] your Primary Care Provider. Call [facility] ([phone]) or report to the closest Emergency Room. Call 911 if necessary. 05/15/232037 <Electronically signed by Juan Alberto Mcclendon MD> Cosigner Signature (if applicable): CC: Dr. Amos Floyd MD ~ Signed [facility] Work Phone: 1(692) 908-493503-25-2024 Miscellaneous Notes* Telephone Encounter - Amos Floyd MD - 05/15/2023 3:38 PM EDT Noted. * Telephone Encounter - Ama Diaz RN - 05/15/2023 1:22 PM EDT Pts daughter Souleymane called in and reports her mothers Yard Coordinator Dr Gregory from [facility] called and told her mother to go to the ER. He said her Calcium was critically high, and she needs hydration, Zometa, and Calcitonin. Pt will be going to [facility]. documented in this encounterOhiohealth Shelby Hospital03-19-2024 History of Present illness Narrative* José Shi, PT, DPT - 05/09/2023 8:58 AM EDT Program_ID:[id number] Access Code: [email or web address] URL: [email or web address] Date: 05-09-2023 Prepared By: Kole El Program Notes Exercises - Supine Bridge with Mini Libyan Ball Between Knees - 2 x daily [...] José Shi PT, DPT documented in this encounterOhiohealth Shelby Hospital03-12-2024 History of Present illness Narrative* José Shi PT, DPT - 05/02/2023 8:55 AM EDT Program_ID:[id number] Access Code: [email or web address] URL: [email or web address] Date: 05-02-2023 Prepared By: Kole El Program Notes Exercises - Supine Bridge with Mini Libyan Ball Between Knees - 2 x daily [...] of Care: created on 03/28/23 through 05/30/23 [place] in home exercise program.-- Met continue to [...] Patient to be seen for Therapeutic exercise (41737), Neuromuscular re-education (77126), Manual therapy (08006), Self-longterm management (11506), Therapeutic activities (28607), Gait Training (45203), Patient/Family/Caregiver Education PLAN FOR NEXT VISIT: Assess [...] José Shi PT, DPT documented in this encounterOhiohealth Shelby Hospital02-20-2024 History of Present illness Narrative* Kole [...] Clamshells: 2x12 ea., PinkTb. 3: Bridges: 2x12, [place] TB 4: Supine SLR: 2x6, 2#cuff. 5: [...] 1111 Kole El PT documented in this encounterOhiohealth Shelby Hospital02-12-2024 History of Present illness Narrative* Kole El PT - 04/03/2023 10:57 AM EST Program_ID:[id number] Access Code: [email or web address] URL: [email or web address] Date: 04-03-2023 Prepared By: Kole El Program [...] 10 reps * Kole El PT - 04/03/2023 10:06 AM EST Episode Visit Count: 2 Therapist That Will Accept/Oversee The Plan Of Care: Kole El PT, DPT. Start of Care Date: 03/28/23 Onset Date: 11/07/22 Plan of Care Certification Date: 03/28/23 Next Certification Due Date: 03/12/24 Patient Identified by Name and Date of [...] 1100 Kole El PT documented in this encounterOhiohealth Shelby Hospital02-06-2024 History of Present illness Narrative* Kole El PT - 03/28/2023 9:04 AM EST Program_ID:[id number] Access Code: [email or web address] URL: [email or web address] Date: 03-28-2023 Prepared By: Kole El Program [...] of Care: created on 03/28/23 through 05/09/23 [place] in home exercise program. Patient will decrease [...] Planned: 6 Planned Treatment Interventions: Therapeutic exercise (90612), Neuromuscular re- education (34236), Manual therapy (97994), Self-longterm management (78320), Therapeutic activities (73326), Gait Training (62731), Patient/Family/Caregiver Education PLAN FOR NEXT VISIT: Assess [...] Mechanics TREATMENT: PT Treatment Interventions: Therapeutic Exercise, Self-[facility] Management Evaluation Therapeutic Exercise: 1: *S/L Hip [...] facilitated with verbal, visual, and tactile cuing. Self-[facility] Management: 1: Extended time spent rationalizing and [...] 815 Session Stop Time : 904 Kole El, PT documented in this encounterOhiohealth Shelby Hospital02-02-2024 Miscellaneous Notes* Telephone Encounter - Jaquelin Mcgraw Ma - 03/24/2023 11:33 AM EST Patient called in and message from Dr. Cruz given. She verbalized understanding. documented in this encounterOhiohealth Shelby Hospital11-30-2023 History of Present illness Narrative* Amos Floyd MD - 01/19/2023 1:31 PM EST This note was created using [employer]. Subjective Linda Peralta is a 77 year [...] V04.89, ICD10: Z23 - PFIZER-BIONTECH COVID-19 VACCINE ( [place]) AGE 12+ YR 10. Hypercalcemia - [...] General Cardiology-Dr. Marte Nephrology- Dr. Jennifer Tarango Auto Body Repair Estimator- Dr. Carpio Endocrinology- Dr. Torsten Vann (osteoporosis), [...] Personalized prevention plan provided documented in this encounterOhiohealth Shelby Hospital11-29-2023 History of Present illness Narrative* Amy Gates RT(R) - 01/18/2023 10:50 AM EST [...] 18, 2023 10:53 AM documented in this encounterOhiohealth Shelby Hospital10-30-2023 History of Present illness Narrative* Omar [...] 5.3 4.3 - 5.6 % Final Comment: [place] [employer] guidelines indicate that patients with [...] of hemorrhage) DVT (deep venous thrombosis) ([facility]) 03/23/2012 DVT of lower extremity (deep venous thrombosis) ([facility]) 03/27/09 Esophageal reflux Gallstones 03/06/2016 Hypercalcemia 03/19/2009 Hypertension NSTEMI (non-ST elevated myocardial infarction) ([facility]) April 27, 2009 Cardiac cath normal [...] W/COLLJ SPEC WHEN PFRMD 03/26/2010 Inpatient at [facility] ESOPHAGOGASTRODUODENOSCOPY TRANSORAL DIAGNOSTIC 02/2002 EGD ESOPHAGOGASTRODUODENOSCOPY TRANSORAL [...] Up Julieta Avendano LPN documented in this encounterOhiohealth Shelby Hospital10-30-2023 Instructions* Patient Instructions* Omar Cruz - 12/19/2022 12:24 PM EDT Powerstep Original Full length. Can purchase at [employer] here in [place], [employer] in [place] or [place]. Also can find in [place] in [facility]. Powersteps can also be purchased [...] everything fits well together documented in this encounterOhiohealth Shelby Hospital10-13-2023 Miscellaneous Notes* Telephone Encounter - Kelley Rivera LPN - 12/02/2022 11:28 AM EDT Pt last seen pcp 10/26/22 Next appt is 01/19/23. * Telephone Encounter - Kylah Cuellar - 12/02/2022 11:03 AM EDT Patient has been identified by name and date of : Yes Requested Prescriptions Pending Prescriptions Disp Refills simvastatin (ZOCOR) 20 mg tablet 90 tablet 3 Sig: Take 1 tablet by mouth daily at bedtime. RX INSTRUCTIONS: Patient aware RX will be sent to pharmacy. No need to notify patient. Kylah mcdermott documented in this encounterOhiohealth Shelby Hospital10-12-2023 History of Present illness Narrative* Marguerite Waller RT(R) - 12/01/2022 11:50 AM EDT Radiology Service [...] 01, 2022 11:40 AM documented in this encounterOhiohealth Shelby Hospital09-19-2023 History of Present illness Narrative* Jacinda Enriquez APRN.AIRWAYS CONTROL SPECIALIST - 11/08/2022 10:59 AM EDT This note was created using [employer]. Subjective Linda Peralta is a 77 year [...] history is provided by the patient. No director speech language was used. Pain (foot) Pain location: right [...] eczema, due to unspecified cause 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Plumas's disease Cystocele, midline 07/23/2007 Diverticulosis of colon (without mention of hemorrhage) DVT (deep venous thrombosis) ([facility]) 03/23/2012 DVT of lower extremity (deep venous thrombosis) ([facility]) 03/27/09 Esophageal reflux Gallstones 03/06/2016 Hypercalcemia 03/19/2009 Hypertension NSTEMI (non-ST elevated myocardial infarction) ([facility]) April 27, 2009 Cardiac cath normal [...] W/COLLJ SPEC WHEN PFRMD 03/26/2010 Inpatient at [facility] ESOPHAGOGASTRODUODENOSCOPY TRANSORAL DIAGNOSTIC 02/2002 EGD ESOPHAGOGASTRODUODENOSCOPY TRANSORAL [...] Age of Onset Coronary Artery Disease Mother [place] at 87y.o. Hypertension Mother Stroke Father Coronary [...] made at time of exam. Jacinda Enriquez APRN.AIRWAYS CONTROL SPECIALIST documented in this encounterOhiohealth Shelby Hospital09-12-2023 History of Present illness Narrative* Kole [...] of Care: created on 11/01/22 through 01/01/23 [place] in home exercise program. Patient will decrease [...] Planned: 8 Planned Treatment Interventions: Therapeutic exercise (61725), Neuromuscular re- education (09641), Manual therapy (78513), Self-longterm management (85383), Therapeutic activities (87879), Gait Training (05234), Patient/Family/Caregiver Education PLAN FOR NEXT VISIT: Muscle [...] PT Treatment Interventions: Therapeutic Exercise, Manual Therapy, [facility] Management Evaluation Therapeutic Exercise: 1: Supine Hip [...] Quads: Push to tolerance. 3: Manual Long [place] L Hip Distraction: Pull to patient tolerance. Skilled Intervention: Manual skills to improve joint mobility, ROM, and decrease pain. Utilized anatomy knowledge of the therapist, and assessment of patient's response to intervention. [facility] Management: 1: Education on anatomy & physiology [...] Time : 0815 Session Stop Time : 09 Kole El PT documented in this encounterOhiohealth Shelby Hospital09-06-2023 History of Present illness Narrative* Marguerite [...] 26, 2022 2:40 PM documented in this encounterOhiohealth Shelby Hospital09-06-2023 History of Present illness Narrative* Amos Floyd MD - 10/26/2022 2:10 PM EDT This note was created using NoteWriter. Subjective Patient presents with: Left Hip Pain [...] HIGH-DOSE) Amos Floyd MD documented in this encounterOhiohealth Shelby Hospital07-31-2023 Miscellaneous Notes* Telephone Encounter - Carla Howard RN - 09/19/2022 4:06 PM EDT [facility] 05/25/2022 * Telephone Encounter - Edda Loya [...] notify patient. Edda Loya documented in this encounterOhiohealth Shelby Hospital06-07-2023 Miscellaneous Notes* Telephone Encounter - Sharon Pierre RN - 07/27/2022 2:31 PM EDT Returned call to [facility]- ICD code provided (L20.81) * Telephone Encounter - Faye Sung [facility] - 07/27/2022 1:27 PM EDT Specialty Pharmacy phoned requesting a ICD9 Code for ADBRY medication Please advise pharmacy using ref #[id number] documented in this encounterOhiohealth Shelby Hospital06-02-2023 Miscellaneous Notes* Telephone Encounter - Sharon Pierre RN - 07/22/2022 1:07 PM EDT [facility] 05/2022 * Telephone Encounter - Vashti Avendano [facility] - 07/22/2022 10:20 AM EDT [facility] specialty pharmacy called and stated that they need a new script for the ADBRY sent to them. Please call [phone] or escribe fax at [phone] documented in this encounterOhiohealth Shelby Hospital05-31-2023 History of Present illness Narrative* Rocio Johnson APRN.AIRWAYS CONTROL SPECIALIST - 07/20/2022 10:03 AM EDT CC: Patient presents with: F/U 6 months HPI Linda Peralta is a 77 year old female who presents today for above. HTN/ASHD-[place] [facility]. Next follow-up in one week. Medication [...] 12/20/2021 154/100 12/06/2021 126/86 Osteopenia secondary to aesthetics instructor steroid use. Managed by endocrinology. Prolia injections every 6 months. 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 Not responsive to current treatments. Startedon new medication called Manuel however her pharmacy has not received this yet. VTE- lifelong anticoagulation with Coumadin. INR's managed by tow motor mechanic. REVIEW OF SYSTEMS See HPI PAST MEDICAL HISTORY Diagnosis Date Anemia 08/26/2009 ASHD (arteriosclerotic heart disease) 04/25/2009 Asthma Benign neoplasm of colon 04/26/2005 Tubular adenoma Chronic diarrhea 03/15/2010 Chronic sphenoidal sinusitis 09/15/2003 Collagenous colitis 03/30/2010 Contact dermatitis and other eczema, due to unspecified cause 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Plumas's disease Cystocele, midline 07/23/2007 Diverticulosis of colon (without mention of hemorrhage) DVT (deep venous thrombosis) ([facility]) 03/23/2012 DVT of lower extremity (deep venous thrombosis) ([facility]) 03/27/09 Esophageal reflux Gallstones 03/06/2016 Hypercalcemia 03/19/2009 Hypertension NSTEMI (non-ST elevated myocardial infarction) ([facility]) April 27, 2009 Cardiac cath normal [...] W/COLLJ SPEC WHEN PFRMD 03/26/2010 Inpatient at [facility] ESOPHAGOGASTRODUODENOSCOPY TRANSORAL DIAGNOSTIC 02/2002 EGD ESOPHAGOGASTRODUODENOSCOPY TRANSORAL [...] Age of Onset Coronary Artery Disease Mother [place] at 87y.o. Hypertension Mother Stroke Father Coronary [...] patient asymptomatic at this time. Recommend calling tow motor mechanic office if continues - Continue current medication(s) [...] plan. Rocio Johnson APRN.CNP documented in this encounterOhiohealth Shelby Hospital04-05-2023 History of Present illness Narrative* Ryan [...] Past Histories independently gathered by the clinical sales support technician. documented in this encounterOhiohealth Shelby Hospital01-25-2023 Miscellaneous Notes* Telephone Encounter - Sharon Pierre RN - 03/16/2022 9:52 AM EST Received fax from [employer] [employer]- Prior authorization approval for Opzelura 1.5% cream. This authorization is good until 02/19/2023. Pharmacy notified. * Telephone Encounter - Sharon Pierre RN - 03/15/2022 2:16 PM EST Prior authorization requested for Opzelura 1.5% cream via [facility]. Will await determination documented in this encounterOhiohealth Shelby Hospital01-23-2023 Miscellaneous Notes* Telephone Encounter - Donald James RPh - 03/14/2022 1:[address] Gale, This was sent to our pharmacy, however this is something we do not service. Please sign this order to have it sent to patient's preferred pharmacy. Thank you Donald James, PharmD Clinical Pharmacist, Oncology [facility] P: ; F: Pool: P [facility] Pool #: [id number] documented in this encounterOhiohealth Shelby Hospital01-04-2023 History of Present illness Narrative* Ryan [...] Past Histories independently gathered by the clinical sales support technician. documented in this encounterOhiohealth Shelby Hospital10-31-2022 Instructions* Patient Instructions* Rocio Johnson APRN.CNP - 12/20/2021 9:17 AM EDT Please call the office after your follow-up with tow motor mechanic in January for an update on your blood pressure and if any medication changes were made documented in this encounterOhiohealth Shelby Hospital10-31-2022 History of Present illness Narrative* Rocio [...] of hemorrhage) DVT (deep venous thrombosis) ([facility]) 03/23/2012 DVT of lower extremity (deep venous thrombosis) ([facility]) 03/27/09 Esophageal reflux Gallstones 03/06/2016 Hypercalcemia [...] W/COLLJ SPEC WHEN PFRMD 03/26/2010 Inpatient at [facility] ESOPHAGOGASTRODUODENOSCOPY TRANSORAL DIAGNOSTIC 02/2002 EGD ESOPHAGOGASTRODUODENOSCOPY TRANSORAL [...] Age of Onset Coronary Artery Disease Mother [place] at 87y.o. Hypertension Mother Stroke Father Coronary [...] seen: Cardiology-Dr. Marte Nephrology- Dr. Jennifer Tarango Auto Body Repair Estimator- Dr. Carpio Endocrinology- Dr. Torsten Vann (osteoporosis), [...] at this time. - Patient was counseled [id number] by myself (the billing provider) for the [...] YR Rocio Johnson APRN.CNP documented in this encounterOhiohealth Shelby Hospital10-19-2022 Miscellaneous Notes* Letter - Mammography Coordinator - 12/08/2021 2:02 PM EDT December 08, 2021 PID: [id number] Linda Peralta [address] [place] [address] Dear Ms. Peralta, We are pleased to [...] report will be kept on [facility] at [facility] as part of your permanent medical record and are available for your continuing care. Thank you for allowing us to help in meeting your health care needs. Sincerely, Dr. Madden Interpreting Radiologist [facility] (Normal over 40) documented in this encounterOhiohealth Shelby Hospital10-19-2022 History of Present illness Narrative* Echo Light, Mammo Tech - 12/08/2021 12:50 PM EDT [...] PERIPHERAL IV DATA: Not applicable SIGNED BY: Echo Light [employer] December 08, 2021 12:55 PM documented in this encounterOhiohealth Shelby Hospital10-17-2022 History of Present illness Narrative* Amos Floyd MD - 12/06/2021 3:07 PM EDT This note was created using Postmatesriter. Subjective Linda Peralta is a 76 year [...] breast - ICD9: V76.12, ICD10: Z12.31 - [facility] SCREENING Amos Floyd MD documented in this encounterOhiohealth Shelby Hospital10-13-2022 Miscellaneous Notes* Telephone Encounter - Gifty Velazquez RAYMUNDO - 12/02/2021 2:54 PM EDT Patient has [...] requesting refills as follows: last 07/20/21 , [facility] follow up 12/06/21 and medicare wellness 12/20/21 Requested Prescriptions Pending Prescriptions Disp Refills simvastatin (ZOCOR) 20 mg tablet 90 tablet 3 Sig: Take 1 tablet by mouth daily at bedtime. Please review and advise. Va Harris documented in this encounterOhiohealth Shelby Hospital10-06-2022 Instructions* Patient Instructions* Ryan Gale MD [...] CeraVe moisturizer as well. documented in this encounterOhiohealth Shelby Hospital10-06-2022 History of Present illness Narrative* Ryan [...] daily. dupilumab 300 mg/2 mL subcutaneous syringe ([email or web address]) Inject 300 mg SQ every 2 weeks [...] and Past Histories independentlygathered by the clinical sales support technician and the remaining scribed note accurately describes my personal service to the patient. Signature: Ryan Gale Date: 11/25/2021 Time: 10:54 PM documented in this encounterOhiohealth Shelby Hospital09-08-2022 History of Present illness Narrative* Luciana Zuniga RN - 10/28/2021 3:04 PM EDT [facility] Enrollment Provider Action/FYI: lvm x 1 and MC Patient referred by: PCC/PCP referral Contact made with patient: No - Left Message: Hi my name is Luciana Zuniga RN and I am calling from the [facility] on behalf of your PCP, Amso Floyd MD. We are excited to share with you a new program to help you manage your health. Please call me back at [phone] between the hours of 8am-5pm Monday-Monday. You will receive another phone call from me within the next two businessdays. I hope you can take the time to speak with me. (Keep encounter open and attempt 2nd outreachin two business days from today) END OUTREACH documented in this encounterOhiohealth Shelby Hospital08-25-2022 Miscellaneous Notes* Telephone Encounter - Milagros [...] return to express care. documented in this encounterOhiohealth Shelby Hospital08-24-2022 History of Present illness Narrative* Irene Mendenhall APRN.TELLY - 10/13/2021 1:59 PM EDT Subjective Cough [...] eczema, due to unspecified cause 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Plumas's disease Cystocele, midline 07/23/2007 Diverticulosis of colon (without mention of hemorrhage) DVT (deep venous thrombosis) ([facility]) 03/23/2012 DVT of lower extremity (deep venous thrombosis) ([facility]) 03/27/09 Esophageal reflux Gallstones 03/06/2016 Hypercalcemia 03/19/2009 Hypertension NSTEMI (non-ST elevated myocardial infarction) ([facility]) April 27, 2009 Cardiac cath normal [...] W/COLLJ SPEC WHEN PFRMD 03/26/2010 Inpatient at [facility] ESOPHAGOGASTRODUODENOSCOPY TRANSORAL DIAGNOSTIC 02/2002 EGD ESOPHAGOGASTRODUODENOSCOPY TRANSORAL DIAGNOSTIC 05/01/2009 EGD ESOPHAGOGASTRODUODENOSCOPY TRANSORAL DIAGNOSTIC 11/18/2009 EGD, EXC CYST/ABERRANT BREAST TISSUE OPEN / LESION 1960 benign IVC FILTER PERCUTANEOUS 03/31/2009 [...] Age of Onset Coronary Artery Disease Mother [place] at 87y.o. Hypertension Mother Stroke Father Coronary [...] illness Irene Mendenhall APRN.CNP documented in this encounterOhiohealth Shelby Hospital08-24-2022 Instructions* Patient Instructions* Irene Mendenhall APRN.CNP - 10/13/2021 1:58 PM [...] Discussed expected course of illness Irene Mendenhall APRN.AIRWAYS CONTROL SPECIALIST Beginning Home Isolation Isolation is used to [...] to your local emergency facility: Notify the continuous linter drier operator that you are seeking care for [...] or concerning to you. documented in this encounterOhiohealth Shelby Hospital07-06-2022 Instructions* Patient Instructions* Nevin Lee PA-C - 08/25/2021 1:44 PM EDT Images from the original note were not included. documented in this encounterOhiohealth Shelby Hospital07-06-2022 History of Present illness Narrative* Nevin Lee PA-C - 08/25/2021 1:13 PM EDT Department of Dermatology Nevin Lee MS, PA-C 08/25/2021 Chief Complaint: Patient presents with: Derm Problem HPI Linda Peralta is a 76 year old female who presents for: - F/u seborrheic keratosis and atopic neurodermatitis - THELMA with Nevin Lee MS, PA-C on 11/11/20 - SKs treated with LN2 [...] Past Histories independently gathered by the clinical sales support technician. Nvein Lee MS, RHIANNONC documented in this encounterOhiohealth Shelby Hospital05-31-2022 History of Present illness Narrative* Amos Floyd MD - 07/20/2021 9:15 AM EDT This note was created using Postmatesriter. Subjective Linda Peralta is a 76 year [...] daily. dupilumab 300 mg/2 mL subcutaneous syringe ([email or web address]) Inject 300 mg SQ every 2 weeks [...] TOP) Amos Floyd MD documented in this encounterOhiohealth Shelby Hospital01-19-2017 History of Past illness Narrative* Problem [...] heparin, ASA, plavix 300, atorvastatin - plan [facility] tomorrow. Hypokalemia 04/09/2009 05/14/2009 Overview: -Replete. [...] of this encounter (statuses as of 07/20/2021) [facility]01-19-2017 History of Past illness Narrative* Problem [...] heparin, ASA, plavix 300, atorvastatin - plan [facility] tomorrow. Hypokalemia 04/09/2009 05/14/2009 Overview: -Replete. [...] of this encounter (statuses as of 08/25/2021) [facility] History of Past illness Narrative* Problem [...] heparin, ASA, plavix 300, atorvastatin - plan [facility] tomorrow. Hypokalemia 04/09/2009 05/14/2009 Overview: -Replete. [...] of this encounter (statuses as of 10/13/2021) [facility] of Past illness Narrative* Problem [...] heparin, ASA, plavix 300, atorvastatin - plan [facility] tomorrow. Hypokalemia 04/09/2009 05/14/2009 Overview: -Replete. [...] of this encounter (statuses as of 10/14/2021) [facility] of Past illness Narrative* Problem [...] heparin, ASA, plavix 300, atorvastatin - plan [facility] tomorrow. Hypokalemia 04/09/2009 05/14/2009 Overview: -Replete. [...] of this encounter (statuses as of 10/28/2021) [facility] of Past illness Narrative* Problem [...] heparin, ASA, plavix 300, atorvastatin - plan [facility] tomorrow. Hypokalemia 04/09/2009 05/14/2009 Overview: -Replete. [...] of this encounter (statuses as of 11/26/2021) [facility] of Past illness Narrative* Problem [...] heparin, ASA, plavix 300, atorvastatin - plan [facility] tomorrow. Hypokalemia 04/09/2009 05/14/2009 Overview: -Replete. [...] of this encounter (statuses as of 12/03/2021) [facility] of Past illness Narrative* Problem [...] heparin, ASA, plavix 300, atorvastatin - plan [facility] tomorrow. Hypokalemia 04/09/2009 05/14/2009 Overview: -Replete. [...] of this encounter (statuses as of 12/06/2021) [facility] of Past illness Narrative* Problem [...] heparin, ASA, plavix 300, atorvastatin - plan [facility] tomorrow. Hypokalemia 04/09/2009 05/14/2009 Overview: -Replete. [...] of this encounter (statuses as of 12/09/2021) [facility] of Past illness Narrative* Problem [...] heparin, ASA, plavix 300, atorvastatin - plan [facility] tomorrow. Hypokalemia 04/09/2009 05/14/2009 Overview: -Replete. [...] of this encounter (statuses as of 12/10/2021) [facility] of [facility] illness Narrative* Problem [...] heparin, ASA, plavix 300, atorvastatin - plan [facility] tomorrow. Hypokalemia 04/09/2009 05/14/2009 Overview: -Replete. [...] of this encounter (statuses as of 12/20/2021) [facility] of [facility] illness Narrative* Problem [...] heparin, ASA, plavix 300, atorvastatin - plan [facility] tomorrow. Hypokalemia 04/09/2009 05/14/2009 Overview: -Replete. [...] of this encounter (statuses as of 02/25/2022) [facility] of [facility] illness Narrative* Problem [...] heparin, ASA, plavix 300, atorvastatin - plan [facility] tomorrow. Hypokalemia 04/09/2009 05/14/2009 Overview: -Replete. [...] of this encounter (statuses as of 03/15/2022) [facility] illness Narrative* Problem [...] heparin, ASA, plavix 300, atorvastatin - plan [facility] tomorrow. Hypokalemia 04/09/2009 05/14/2009 Overview: -Replete. [...] of this encounter (statuses as of 03/16/2022) [facility] illness Narrative* Problem [...] heparin, ASA, plavix 300, atorvastatin - plan [facility] tomorrow. Hypokalemia 04/09/2009 05/14/2009 Overview: -Replete. [...] of this encounter (statuses as of 06/06/2022) [facility] Narrative* Problem [...] heparin, ASA, plavix 300, atorvastatin - plan [facility] tomorrow. Hypokalemia 04/09/2009 05/14/2009 Overview: -Replete. [...] of this encounter (statuses as of 07/20/2022) [facility] illness Narrative* Problem [...] heparin, ASA, plavix 300, atorvastatin - plan [facility] tomorrow. Hypokalemia 04/09/2009 05/14/2009 Overview: -Replete. [...] of this encounter (statuses as of 07/23/2022) [facility] Narrative* Problem [...] heparin, ASA, plavix 300, atorvastatin - plan [facility] tomorrow. Hypokalemia 04/09/2009 05/14/2009 Overview: -Replete. [...] of this encounter (statuses as of 07/27/2022) [facility] Narrative* Problem [...] heparin, ASA, plavix 300, atorvastatin - plan [facility] tomorrow. Hypokalemia 04/09/2009 05/14/2009 Overview: -Replete. [...] of this encounter (statuses as of 09/20/2022) [facility] Narrative* Problem [...] heparin, ASA, plavix 300, atorvastatin - plan [facility] tomorrow. Hypokalemia 04/09/2009 05/14/2009 Overview: -Replete. [...] of this encounter (statuses as of 10/27/2022) [facility] Narrative* Problem [...] heparin, ASA, plavix 300, atorvastatin - plan [facility] tomorrow. Hypokalemia 04/09/2009 05/14/2009 Overview: -Replete. [...] of this encounter (statuses as of 11/01/2022) [facility] Narrative* Problem [...] heparin, ASA, plavix 300, atorvastatin - plan [facility] tomorrow. Hypokalemia 04/09/2009 05/14/2009 Overview: -Replete. [...] of this encounter (statuses as of 11/08/2022) [facility] Narrative* Problem [...] heparin, ASA, plavix 300, atorvastatin - plan [facility] tomorrow. Hypokalemia 04/09/2009 05/14/2009 Overview: -Replete. [...] of this encounter (statuses as of 12/02/2022) [facility] Narrative* Problem [...] heparin, ASA, plavix 300, atorvastatin - plan [facility] tomorrow. Hypokalemia 04/09/2009 05/14/2009 Overview: -Replete. [...] of this encounter (statuses as of 12/19/2022) [facility] Narrative* Problem [...] heparin, ASA, plavix 300, atorvastatin - plan [facility] tomorrow. Hypokalemia 04/09/2009 05/14/2009 Overview: -Replete. [...] of this encounter (statuses as of 12/25/2022) [facility] Narrative* Problem [...] heparin, ASA, plavix 300, atorvastatin - plan [facility] tomorrow. Hypokalemia 04/09/2009 05/14/2009 Overview: -Replete. [...] of this encounter (statuses as of 01/19/2023) [facility] Narrative* Problem [...] heparin, ASA, plavix 300, atorvastatin - plan [facility] tomorrow. Hypokalemia 04/09/2009 05/14/2009 Overview: -Replete. [...] of this encounter (statuses as of 01/19/2023) [facility] Narrative* Problem [...] heparin, ASA, plavix 300, atorvastatin - plan [facility] tomorrow. Hypokalemia 04/09/2009 05/14/2009 Overview: -Replete. 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 Hypokalemia 04/09/2009 05/14/2009 Overview: -Replete. [...] of this encounter (statuses as of 03/28/2023) [facility] Narrative* Problem [...] heparin, ASA, plavix 300, atorvastatin - plan [facility] tomorrow. Hypokalemia 04/09/2009 05/14/2009 Overview: -Replete. [...] of this encounter (statuses as of 04/03/2023) [facility] Narrative* Problem [...] heparin, ASA, plavix 300, atorvastatin - plan [facility] tomorrow. Hypokalemia 04/09/2009 05/14/2009 Overview: -Replete. [...] of this encounter (statuses as of 04/11/2023) [facility] Narrative* Problem [...] heparin, ASA, plavix 300, atorvastatin - plan [facility] tomorrow. Hypokalemia 04/09/2009 05/14/2009 Overview: -Replete. [...] of this encounter (statuses as of 05/02/2023) [facility] Narrative* Problem [...] heparin, ASA, plavix 300, atorvastatin - plan [facility] tomorrow. Hypokalemia 04/09/2009 05/14/2009 Overview: -Replete. [...] of this encounter (statuses as of 05/09/2023) [facility] Narrative* Problem [...] heparin, ASA, plavix 300, atorvastatin - plan [facility] tomorrow. Hypokalemia 04/09/2009 05/14/2009 Overview: -Replete. [...] of this encounter (statuses as of 05/15/2023) [facility] Narrative* Problem [...] heparin, ASA, plavix 300, atorvastatin - plan [facility] tomorrow. Hypokalemia 04/09/2009 05/14/2009 Overview: -Replete. [...] of this encounter (statuses as of 05/23/2023) [facility] Narrative* Problem [...] heparin, ASA, plavix 300, atorvastatin - plan [facility] tomorrow. Hypokalemia 04/09/2009 05/14/2009 Overview: -Replete. [...] of this encounter (statuses as of 05/23/2023) [facility] Narrative* Problem [...] heparin, ASA, plavix 300, atorvastatin - plan [facility] tomorrow. Hypokalemia 04/09/2009 05/14/2009 Overview: -Replete. [...] of this encounter (statuses as of 05/24/2023) [facility] Narrative* Problem [...] heparin, ASA, plavix 300, atorvastatin - plan [facility] tomorrow. Hypokalemia 04/09/2009 05/14/2009 Overview: -Replete. [...] of this encounter (statuses as of 05/25/2023) [facility] Narrative* Problem [...] heparin, ASA, plavix 300, atorvastatin - plan [facility] tomorrow. Hypokalemia 04/09/2009 05/14/2009 Overview: -Replete. [...] of this encounter (statuses as of 06/01/2023) [facility] Narrative* Problem [...] heparin, ASA, plavix 300, atorvastatin - plan [facility] tomorrow. Hypokalemia 04/09/2009 05/14/2009 Overview: -Replete. [...] of this encounter (statuses as of 06/01/2023) [facility] Narrative* Problem [...] heparin, ASA, plavix 300, atorvastatin - plan [facility] tomorrow. Hypokalemia 04/09/2009 05/14/2009 Overview: -Replete. [...] of this encounter (statuses as of 06/01/2023) [facility]01-19-2017 History of Past illness Narrative* Problem [...] heparin, ASA, plavix 300, atorvastatin - plan [facility] tomorrow. Hypokalemia 04/09/2009 05/14/2009 Overview: -Replete. [...] of this encounter (statuses as of 06/09/2023) [facility]01-19-2017 History of Past illness Narrative* Problem [...] heparin, ASA, plavix 300, atorvastatin - plan [facility] tomorrow. Hypokalemia 04/09/2009 05/14/2009 Overview: -Replete. [...] of this encounter (statuses as of 06/12/2023) [facility]03-01-2010 Evaluation note* Diagnosis Onset Date Resolution Status Essential (primary) hypertension chronic History of pulmonary embolism chronic Hyperlipidemia chronic History of non-ST elevation myocardial infarction (NSTEMI) April, resolved [facility] Work Phone: Discharge summary Author Jairo Mitchell [facility] Note Date/Time August 09, 2024 2:56 pm [facility] Medical Records Department [address] [place] [address] Discharge Summary 08/09/24 1437 MR#: [id number] Acct: [id number] Name: LINDA PERALTA Rep #:[id number] : 1945 79 From: Jairo Mitchell DO PCP: Dr. Amos Floyd MD Status:A DM IN Location: [place] [id number]- Providers Date of Admission: 08/07/24 Primary Care Physician: Dr. Amos Floyd MD Reason For Visit: UTI, SEPSIS, HYPOTENSION WITH ORTHOSTATIC Diagnosis Discharge Diagnosis (1) Acute cystitis without hematuria: Status: Acute Code(s): N30.00 - Acute cystitis without hematuria Medications at Discharge Home Medications acetaminophen 500 mg tablet 1,000 mg (2 x 500 mg) PO Q6H PRN Pain Score 1-10 04/08/20 denosumab 60 mg/mL subcutaneous syringe (Prolia) 60 mg subcut [id number] #1 mL 11/24/22 nitroglycerin 0.4 mg sublingual tablet 0.4 mg sublingual Q5-15M PRN Cardiac/Chest Pain #25 tabs 07/26/23 methenamine hippurate 1 gram tablet 1 g PO QHS 04/29/24 Held on 08/09/24. Instructions: Resume on 08/14/24. simvastatin 20 mg tablet 20 mg PO QHS #90 tabs 07/23/24 ascorbic acid (vitamin C) 1,000 mg tablet 1,000 mg PO QHS 08/07/24 apixaban 5 mg (74 tabs) tablets in a dose pack See Rx Instructions PO .COMPLEX #74 tabs 08/09/24 hydrocortisone 10 mg tablet 10 mg PO TID #27 tabs 08/09/24 hydrocortisone 10 mg tablet 10 mg PO TID #90 tabs 08/09/24 sulfamethoxazole 800 mg-trimethoprim 160 mg tablet (Bactrim DS) 1 tab PO BID #10tabs 08/09/24 Hospital Course Operations None Procedures None Summary of Care Provided Minutes Spent on Discharge: 40 Hospital Course: This is a an 79-year-old female presents with UTI and was noted to be hypotensive. 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 Patient was started on stress dose steroid and and antibioticsand has since improved. Patient recently held off on her warfarin due to a cardiac catheterization. Did have a duplex performed here that showed bilateralacute DVTs. Patient had been on warfarin for approximately 17 years and had been told that she need to be on lifelong anticoagulation. Verified that she does not have any other indication of needing warfarin such as mechanical heart valves which she does not. Discussed with her that she may have a hypercoagulable state as she does have a daughter who has had a history of DVT and PEs and unclear if she actually has some hypercoagulable state but I was around concerned that that may be the case as patient had been off warfarin for 5 days prior and then had not had a therapeutic INR prior to initiating apixabanon today. So I discussed with she and her other daughter, who does not have anyclotting disorder and has been checked for hypercoagulable states which she doesnot. And about the indication for Eliquis and his ease of use and not having toadjust diet nor out to have any lab work for this. They agreed to continue withtaking apixaban which patient had already received earlier today. Patient also be on steroid taper to wean her down to her 10 mg 3 times daily. It is written as 20 mg daily but patient states that for the past 6 months she has been on hydrocortisone 10 mg 3 times daily. Patient also be on Bactrim to complete her course of antibiotics for the UTI. Patient's creatinine clearance is greater than 30 so we will have her taking Bactrim DS 1 tablet twice daily for the next 5 days to complete a 7-day course of antibiotics. Physical Exam Const alert and no apparent distress Resp normal respiratory effort, no retractions, no use of accessory muscles and clearto auscultation bilaterally Cardio regular rate and regular rhythm Cardio Narrative: 2 out of 6 systolic ejection murmur at the right upper sternal border GI normal to inspection, nondistended, normoactive bowel sounds, soft to palpation,non-tender and non-distended Neuro Sensorium / Orientation: awake and alert Weight / BMI Weight Weight: 72.8 kg Body Mass Index (BMI) 29.5 ABG / Lab / Microbiology Data 08/09/24 06:47 08/09/24 06:47 Laboratory: Laboratory Results - last 24 hr 08/09/24 06:47: WBC 11.5 H, RBC 4.42, Hgb 13.3, Hct 40.4, MCV 91.4, MCH 30.1, MCHC 32.9, RDW Std Deviation 53.7 H, RDW Coeff of Slava 15.9 H, Plt Count 118 L, MPV 12.0, Immature Gran % (Auto) 1.600 H, Neut % (Auto) 81.0 H, Lymph % (Auto) 7.4 L, [place] % (Auto) 9.5, Eos % (Auto) 0.2, Baso % (Auto) 0.3, Absolute Neuts (auto) 9.3 H, Absolute Lymphs (auto) 0.85, Nucleated RBC % 0, Sodium 137, Potassium 4.9, Chloride 111 H, Carbon Dioxide 15.0 L, Anion Gap 11, BUN 41 H, Creatinine 1.35 H, Estim Creat Clear Calc 30.53 L, Est GFR (MDRD) Non-Af 39 L, BUN/Creatinine Ratio 30.7 H, Glucose 145 H, Calcium 8.5 Microbiology: Microbiology 08/07/24 18:06 Urine, Random Urine Culture - Final Klebsiella aerogenes D/C Instructions Discharge Diet: No restrictions DC O2, CPAP, BIPAP Needs Home O2 Discharge instructions: No Meaningful Use Info Meaningful Use Meaningful Use Diagnoses (Choose all that apply): None applicable Ischemic Stroke Statin Dosing Therapy Reference: STATIN DOSE THERAPY REFERENCE: * Patients > 75 years receive moderate or high dose statin therapy. * Patients 75 years or YOUNGER should receive HIGH intensity statin dose unless contraindicated. You will be required to document reason for non-treatment if statin daily dose does not meet guidelines. HIGH DOSE STATIN THERAPY DAILY Atorvastatin > than or = to 40 mg Rosuvastatin > than or = to 20 mg Amlodipine + Atorvastatin > than or = to 2.5/40 mg Ezetimibe + Simvastatin 10/80 mg Simvastatin 80mg Discharge Plan Admission Admit Date/Time: 08/07/24 20:16 Primary Reason for Your Visit: Urinary tract infection. Attending Provider: Jairo Mitchell Primary Care Provider: Amos Floyd Consulting Providers: Nixon Silverio; Ted Toro Instructions Additional Instructions / Restrictions: Your blood pressure was low due to being on chronic steroids with your Plumas'sdisease and you will be on a prednisone taper over the next 9 days to your normal dosing. Please follow the instructions. Additionally you have a urinarytract infection which she will be on Bactrim for the next 5 days. As we discussed about changing your anticoagulation because you do have what appears to be DVTs in your lower extremities that you will be changed over from warfarin(Coumadin) to apixaban. The apixaban dosing will change after about a week. Please follow the instructions. If you do have any increased swelling in your legs, increased shortness of breath, notify your physician or return to the emergency room. Discharge Orders/Prescriptions Prescriptions: New apixaban 5 mg (74 tabs) tablets,dose pack See Rx Instructions .ROUTE .COMPLEX Qty: 74 0RF Rx Instructions: orally per package directions hydrocortisone 10 mg tablet 10 mg PO TID Qty: 27 0RF Rx Instructions: 4 tabs TID for 3 days, then 3 tabs TID for 3 days, then 2 tabs TID for 3 days. sulfamethoxazole-trimethoprim [Bactrim DS] 800-160 mg tablet 1 tab PO BID Qty: 10 0RF Continued Prolia 60 mg/mL syringe 60 mg subcut [id number] Qty: 1 1RF nitroglycerin 0.4 mg tablet, sublingual 0.4 mg SUBLINGUAL Q5-15M PRN (Reason: Cardiac/Chest Pain) Qty: 25 3RF simvastatin 20 mg tablet 20 mg PO QHS Qty: 90 3RF acetaminophen 500 MG tablet 1,000 mg PO Q6H PRN (Reason: Pain Score 1-10) 0RF ascorbic acid (vitamin C) 1,000 mg tablet 1,000 mg PO QHS Changed hydrocortisone 10 mg tablet 10 mg PO TID Qty: 90 6RF Rx Instructions: resume once you have completed the hydrocortisone taper. Held methenamine hippurate 1 gram tablet 1 g PO QHS Hold Instructions: Resume on 08/14/24. Discontinued lisinopril 5 mg tablet 5 mg PO QDAY Qty: 90 3RF warfarin 2.5 mg tablet 2.5 mg PO [...] 07/19/24 Rx Instructions: daily or as directed Referrals / Follow Up: Amos Floyd MD [Primary Care Provider] - Within 2 Weeks Disposition Disposition (needs filled in before D/C Order can be placed): Home, Self Care Charges/Coding Visit Charges Inpatient E&M: 34129 Disch Hosp >30min 08/09/24 0568 <Electronically signed by Jairo Mitchell DO> Cosigner Signature (if applicable): CC: Dr. Jairo Mitchell DO; Dr. Amos Floyd MD~ Signed [facility] Work Phone: evaluation note* Diagnosis Onset Date Resolution Status Chest pain acute Essential (primary) hypertension acute History of pulmonary embolism chronic Hyperlipidemia [facility] Work Phone: evaluation note* Diagnosis Adrenal hypofunction (HCC)- Primary Glucocorticoid deficiency Primary hypertension Unspecified essential hypertension ASHD (arteriosclerotic heart disease) Coronary atherosclerosis of unspecified type of vessel, [place] or graft Hip pain Pain in joint, pelvic region and thigh Need for COVID-19 vaccine [facility] Diagnosis Onset Date Resolution Status Chest pain acute Essential (primary) hypertension chronic History of pulmonary embolism chronic Hyperlipidemia chronic Essential (primary) hypertension chronic History of pulmonary embolism chronic Hyperlipidemia [facility] Work Phone: Evaluation note* Diagnosis Onset Date Resolution Status Essential (primary) hypertension chronic History of pulmonary embolism chronic Hyperlipidemia [facility] Work Phone: Evaluation note* Diagnosis Atopic neurodermatitis- Primary Other atopic dermatitis and related conditions [facility]* Diagnosis Suspected COVID-19 virus infection- Primary [facility] Diagnosis Stage 3b chronic kidney disease (HCC)- Primary [facility] Diagnosis Onset Date Resolution Status ANGELA (acute kidney injury) ac [place] Elevated troponin acute Hypotension acute Plumas disease chronic 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 chron ic [facility] Work Phone: Evaluation note* Diagnosis Onset Date Resolution Status Moris disease acute ANGELA (acute kidney injury) ac [place] Elevated troponin acute Hypotension acute 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 chron ic 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, 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 [facility] Work Phone: Evaluation note* Diagnosis Atopic neurodermatitis- Primary Other atopic dermatitis and related conditions documented in this encounter [facility] note* Diagnosis Onset Date Resolution Status ANGELA (acute kidney injury) re solved Elevated troponin resolved Hypotension resolved [facility] Work Phone: Evaluation note* Diagnosis Pure hypercholesterolemia documented in this encounter [facility] note* Diagnosis Hypotension due to hypovolemia- Primary Elevated troponin Other abnormal blood chemistry Acute kidney injury (HCC) Acute kidney failure, unspecified Stage 3b chronic kidney disease (HCC) Hypercalcemia Anticoagulated on Coumadin Encounter for therapeutic drug monitoring Breast pain, left Mastodynia Encounter for screening mammogram for malignant neoplasm of breast Other screening mammogram documented in this encounter [facility] note* Diagnosis Encounter for screening mammogram for malignant neoplasm of breast Other screening mammogram documented in this encounter [facility] note* Diagnosis Medicare annual wellness visit, subsequent- Primary Routine general medical examination at a [facility] care [facility] Hypertension, unspecified type Pure hypercholesterolemia Encounter for immunization Need for other specified prophylactic vaccination against single bacterial disease documented in this encounter [facility] note* Diagnosis Onset Date Resolution Status Plumas disease acute ANGELA (acute kidney injury) re solved Elevated troponin resolved Hypotension resolved Moris disease acute Osteoporosis acute Essential (primary) hypertension chronic History of pulmonary embolism chronic Hyperlipidemia chronic History of non-ST elevation myocardial infarction (NSTEMI) April, resolved [facility] Work Phone: Evaluation note* Diagnosis Onset Date Resolution Status Moris disease acute ANGELA (acute kidney injury) re solved Elevated troponin resolved Hypotension resolved Plumas disease acute Osteoporosis acute Essential (primary) hypertension chronic History of pulmonary embolism chronic Hyperlipidemia chronic History of non-ST elevation myocardial infarction (NSTEMI) April, resolved Essential (primary) hypertension chronic History of pulmonary embolism chronic Hyperlipidemia chronic History of non-ST elevation myocardial infarction (NSTEMI) April, resolved [facility] Work Phone: Evaluation note* Diagnosis Atopic neurodermatitis- Primary Other atopic dermatitis and related conditions documented in this encounter [facility] note* Diagnosis Atopic neurodermatitis Other atopic dermatitis and related conditions [facility] Diagnosis Onset Date Resolution Status Moris disease acute Osteoporosis acute Essential (primary) hypertension chronic History of pulmonary embolism chronic Hyperlipidemia chronic History of non-ST elevation myocardial infarction (NSTEMI) April, resolved Essential (primary) hypertension chronic History of pulmonary embolism chronic Hyperlipidemia chronic History of non-ST elevation myocardial infarction (NSTEMI) April, resolved [facility] Work Phone: evaluation noteNo assessment information available [facility] Work Phone: Evaluation note* Diagnosis Primary hypertension- Primary Unspecified essential hypertension Pure hypercholesterolemia Stage 3b chronic kidney disease (HCC) ASHD (arteriosclerotic heart disease) Coronary atherosclerosis of unspecified type of vessel, [place] or graft Osteopenia, unspecified location documented in this encounter [facility] note* Diagnosis Onset Date Resolution Status Aortic stenosis acute MVP (mitral valve prolapse) acute Chronic kidney disease, stage 3 chronic Essential (primary) hypertension chronic History of pulmonary embolism chronic Hyperlipidemia chronic History of non-ST elevation myocardial infarction (NSTEMI) April, resolved [facility] Work Phone: Evaluation note* Diagnosis Hip pain, unspecified laterality- Primary Stage 3b chronic kidney disease (HCC) Deep vein thrombosis (DVT) of lower extremity, unspecified chronicity, unspecified laterality, unspecified vein (HCC) Need for influenza vaccination Need for prophylactic vaccination and inoculation against influenza [facility]* Diagnosis Hip pain, unspecified laterality [M25.559]- Primary [facility]* Diagnosis Foot pain, right- Primary Pain in limb Closed fracture of right foot, initial encounter [facility] Diagnosis Pure hypercholesterolemia [facility]* Diagnosis Closed displaced fracture of fifth metatarsal bone of right foot, initial encounter- Primary documented in this encounter [facility] note* Diagnosis Onset Date Resolution Status Plumas disease chronic Osteoporosis chronic [facility] Work Phone: Evaluation note* Diagnosis Closed displaced fracture of fifth metatarsal bone of right foot, initial encounter [facility] Diagnosis Closed displaced fracture of fifth metatarsal bone of right foot, initial encounter [facility] Diagnosis Closed displaced fracture of fifth metatarsal bone of right foot, initial encounter [facility]* Diagnosis Medicare annual wellness visit, [...] COVID-19 vaccine Hypercalcemia [facility] Diagnosis Onset Date Resolution Status Plumas disease chronic Osteoporosis chronic Aortic stenosis acute Dizziness acute MVP (mitral valve prolapse) acute Chronic kidney disease, stage 3 chronic Essential (primary) hypertension chronic History of pulmonary embolism chronic Hyperlipidemia chronic History of non-ST elevation myocardial infarction (NSTEMI) April, resolved [facility] Work Phone: Evaluation note* Diagnosis Gait abnormality- Primary Abnormality of gait Hip pain, unspecified laterality Closed displaced fracture of fifth metatarsal bone of right foot with delayed healing, subsequent encounter [facility] Diagnosis Gait abnormality- Primary Abnormality of gait Hip pain, unspecified laterality Closed displaced fracture of fifth metatarsal bone of right foot with delayed healing, subsequent encounter [facility] Diagnosis Onset Date Resolution Status Aortic stenosis acute Dizziness acute MVP (mitral valve prolapse) acute Chronic kidney disease, stage 3 chronic Essential (primary) hypertension chronic History of pulmonary embolism chronic Hyperlipidemia chronic History of non-ST elevation myocardial infarction (NSTEMI) April, resolved [facility] Work Phone: Evaluation note* Diagnosis Gait abnormality- Primary Abnormality of gait Hip pain, unspecified laterality Closed displaced fracture of fifth metatarsal bone of right foot with delayed healing, subsequent encounter [facility] Diagnosis Hypercalcemia- Primary [facility] Diagnosis Hypercalcemia- Primary Fatigue, unspecified type Urinary frequency Myalgias Confusion Unspecified psychosis Weakness Other malaise and fatigue [facility]* Diagnosis Hypercalcemia- Primary Moris's disease (CMS/HCC) Glucocorticoid deficiency Anemia in chronic kidney disease Chronic kidney disease Chronic kidney disease, unspecified Generalized muscle weakness Muscle weakness (generalized) Hypertensive kidney disease with stage 3b chronic kidney disease (CMS/HCC) Urinary tract infection, site not specified documented in this encounter [facility] Work Phone: Evaluation note* Diagnosis Physical deconditioning- Primary Debility, unspecified Muscle weakness Muscle weakness (generalized) Gait abnormality Abnormality of gait [facility]* Diagnosis Other specified hypotension- Primary Plumas's disease (HCC) Glucocorticoid deficiency Hypercalcemia [facility]* Diagnosis Gait abnormality- Primary Abnormality of gait Physical deconditioning Debility, unspecified Weakness Other malaise and fatigue [facility]* Diagnosis Physical deconditioning- Primary Debility, unspecified Gait abnormality Abnormality of gait Muscle weakness Muscle weakness (generalized) documented [facility]* Diagnosis Physical deconditioning- Primary Debility, unspecified Gait abnormality Abnormality of gait Weakness Other malaise and fatigue [facility]* Diagnosis Physical deconditioning- Primary Debility, unspecified Gait abnormality Abnormality of gait Weakness Other malaise and fatigue [facility]* Diagnosis Hypercalcemia- Primary Age-related osteoporosis with current pathological fracture with routine healing Aftercare for healing pathologic fracture of other bone Hypokalemia Hypopotassemia Adrenal hypofunction (HCC) Glucocorticoid deficiency NSTEMI (non-ST elevated myocardial infarction) (HCC) Acute myocardial infarction, subendocardial infarction, episode of care unspecified ASHD (arteriosclerotic heart disease) Coronary atherosclerosis of unspecified type of vessel, [place] or graft Nonrheumatic aortic valve stenosis Aortic valve disorders [facility]* Diagnosis Physical deconditioning- Primary Debility, unspecified Gait abnormality Abnormality of gait Weakness Other malaise and fatigue [facility]* Diagnosis Physical deconditioning- Primary Debility, unspecified Gait abnormality Abnormality of gait Weakness Other malaise and fatigue [facility]* Diagnosis Primary hypertension- Primary Unspecified essential hypertension Hypercalcemia Adrenal hypofunction (HCC) Glucocorticoid deficiency Nonrheumatic aortic valve stenosis Aortic valve disorders [facility]* Diagnosis Abnormal finding of diagnostic imaging- Primary Other nonspecific (abnormal) findings on radiological and other examinations of body structure [facility]* Diagnosis Physical deconditioning- Primary Debility, unspecified Gait abnormality Abnormality of gait Weakness Other malaise and fatigue [facility]* Diagnosis Physical deconditioning- Primary Debility, unspecified Gait abnormality Abnormality of gait Weakness Other malaise and fatigue [facility]* Diagnosis Physical deconditioning- Primary Debility, unspecified Gait abnormality Abnormality of gait Weakness Other malaise and fatigue [facility]* Diagnosis Foot pain, right Pain in limb [facility]* Diagnosis Hip pain, unspecified laterality [facility]* Diagnosis Age-related osteoporosis with current pathological fracture with routine healing- Primary Aftercare for healing pathologic fracture of other bone Hypercalcemia Adrenal hypofunction (HCC) Glucocorticoid deficiency [facility] Diagnosis Pure hypercholesterolemia [facility] Diagnosis Age-related osteoporosis with current pathological fracture with routine healing- Primary Aftercare for healing pathologic fracture of other bone [facility] Diagnosis Age-related osteoporosis with current pathological fracture with routine healing- Primary Aftercare for healing pathologic fracture of other bone [facility] Diagnosis Abnormal finding of diagnostic imaging- Primary Other nonspecific (abnormal) findings on radiological and other examinations of body structure [facility] Diagnosis Abnormal finding of diagnostic imaging- Primary Other nonspecific (abnormal) findings on radiological and other examinations of body structure [facility]* Diagnosis Abnormal finding of diagnostic imaging Other nonspecific (abnormal) findings on radiological and other examinations of body structure [facility] Diagnosis Age-related osteoporosis with current pathological fracture with routine healing- Primary Aftercare for healing pathologic fracture of other bone [facility]* Diagnosis Nodule of lower lobe of right lung needing follor up CT- Primary [facility]* Diagnosis Medicare annual wellness visit, subsequent- [...] thrombosis and embolism [facility] Diagnosis Nodule of lower lobe of right lung needing follor up CT [facility]* Diagnosis Thyroid nodule- Primary Nontoxic uninodular goiter [facility]* Diagnosis ASHD (arteriosclerotic heart disease)- Primary Coronary atherosclerosis of unspecified type of vessel, [place] or graft Primary hypertension Unspecified essential hypertension Nonrheumatic aortic valve stenosis Aortic valve disorders Subconjunctival hemorrhage of left eye Chronic nonallergic rhinitis Chronic rhinitis Stage 3b chronic kidney disease (HCC) Adrenal insufficiency (HCC) Glucocorticoid deficiency Encounter for immunization Need for other specified prophylactic vaccination against single bacterial disease [facility] Diagnosis Acute deep vein thrombosis (DVT) of proximal vein of both lower extremities (HCC)- Primary Other specified hypotension Adrenal insufficiency (HCC) Glucocorticoid deficiency Nonrheumatic aortic valve stenosis Aortic valve disorders Acute cystitis without hematuria Acute cystitis [facility]* Diagnosis Acute cystitis without hematuria- Primary Acute cystitis [facility]* Diagnosis Acute deep vein thrombosis (DVT) of proximal vein of both lower extremities (HCC)- Primary Adrenal insufficiency (HCC) Glucocorticoid deficiency Primary hypertension Unspecified essential hypertension History of UTI Personal history of urinary (tract) infection Nonrheumatic aortic valve stenosis Aortic valve disorders Thyroid nodule greater than or equal to 1 cm in diameter incidentally noted on imaging study, right side. [facility]* Diagnosis Urinary tract infection without hematuria, site unspecified- Primary [facility]* Diagnosis Severe aortic stenosis- Primary Aortic valve disorders [facility] Diagnosis Nonrheumatic aortic valve stenosis- Primary [facility]* Diagnosis Recurrent UTI- Primary Urinary tract infection, site not specified documented [facility]* Diagnosis Aortic valve stenosis, etiology of cardiac valve disease unspecified- Primary Deep vein thrombosis (DVT) of proximal vein of both lower extremities, unspecified chronicity (HCC) Acute systolic heart failure (HCC) Acute systolic heart failure Plumas's disease (HCC) Glucocorticoid deficiency Renal insufficiency Unspecified disorder of kidney and ureter Recurrent UTI Urinary tract infection, site not specified [facility]* Diagnosis Nonrheumatic aortic valve stenosis [facility]* Diagnosis Recurrent UTI- Primary Urinary tract infection, site not specified History of kidney stones Personal history of urinary calculi documented [facility]* Diagnosis Aortic valve stenosis, etiology of cardiac valve disease unspecified- Primary Deep vein thrombosis (DVT) of proximal vein of both lower extremities, unspecified chronicity (HCC) Acute systolic heart failure (HCC) Acute systolic heart failure Moris's disease (HCC) Glucocorticoid deficiency Renal insufficiency Unspecified disorder of kidney and ureter Recurrent UTI Urinary tract infection, site not specified [facility]* Diagnosis Renal insufficiency- Primary Unspecified disorder of kidney and ureter [facility] Diagnosis Renal insufficiency- Primary Unspecified disorder of kidney and ureter [facility] Diagnosis Renal insufficiency- Primary Unspecified disorder of kidney and ureter [facility] Diagnosis Renal insufficiency- Primary Unspecified disorder of kidney and ureter [facility] Diagnosis Severe aortic stenosis- Primary Aortic valve disorders Severe aortic stenosis- Primary Aortic valve disorders Stage 3 chronic kidney disease, unspecified whether stage 3a or 3b CKD (HCC) Acute deep vein thrombosis (DVT) of right lower extremity, unspecified vein (HCC) Acute systolic heart failure (HCC) Acute systolic heart failure Moris's disease (HCC) Glucocorticoid deficiency [facility] Diagnosis Severe aortic stenosis- Primary Aortic valve disorders Severe aortic stenosis- Primary Aortic valve disorders Severe aortic stenosis Aortic valve disorders [facility] Diagnosis Nonrheumatic aortic valve stenosis- Primary documented in this encounter [facility]* Diagnosis Severe aortic stenosis- Primary Aortic valve disorders Severe aortic stenosis Aortic valve disorders Aortic valve stenosis, etiology of cardiac valve disease unspecified Syncope and collapse Severe aortic stenosis Aortic valve disorders documented in this encounter [facility] note* Diagnosis Severe aortic stenosis- Primary Aortic valve disorders documented in this encounter [facility] note* Diagnosis S/p TAVR (transcatheter aortic valve replacement), bioprosthetic- Primary Pure hypercholesterolemia Encounter for immunization Need for other specified prophylactic vaccination against single bacterial disease Stage 3b chronic kidney disease (HCC) Hypertensive kidney disease with stage 3b chronic kidney disease (HCC) Nonrheumatic aortic valve stenosis Aortic valve disorders documented [facility]* Diagnosis Severe aortic stenosis- Primary Aortic valve disorders Stage 3b chronic kidney disease (HCC) Plumas's disease (HCC) Glucocorticoid deficiency Chronic systolic heart failure (HCC) Chronic systolic heart failure Deep vein thrombosis (DVT) of proximal vein of both lower extremities, unspecified chronicity (HCC) documented in this encounter [facility] note* Diagnosis Severe aortic stenosis- Primary Aortic valve disorders documented in this encounter [facility] note* Diagnosis Severe aortic stenosis- Primary Aortic valve disorders documented in this encounter [facility] note* Diagnosis Chronic systolic heart failure (HCC)- Primary Chronic systolic heart failure S/P TAVR (transcatheter aortic valve replacement) Deep vein thrombosis (DVT) of proximal vein of both lower extremities, unspecified chronicity (HCC) Stage 3b chronic kidney disease (CMS/HCC) Moris's disease (HCC) Glucocorticoid deficiency documented in this encounter [facility] note* Diagnosis Severe aortic stenosis Aortic valve disorders documented in this encounter [facility] note* Diagnosis Chronic systolic heart failure (HCC)- Primary Chronic systolic heart failure S/P TAVR (transcatheter aortic valve replacement) Deep vein thrombosis (DVT) of proximal vein of both lower extremities, unspecified chronicity (HCC) Stage 3b chronic kidney disease (CMS/HCC) Plumas's disease (HCC) Glucocorticoid deficiency documented in this encounter [facility] Discharge instructionsAmbulatory Orders* Phase II, Outpatient Cardiac Rehab Location: None Selected [facility] Work Phone: Progress note Author Jordan Marte [facility] Note Date/Time November 14, 2024 9:32am [facility] [address] [facility] [address] [place] [address] OFFICE VISIT Date of Service: 11/14/24 MR#: [id number] Acct: [id number] Name: LINDA PERALTA Rep #: [id number] : 1945 Provider: Dr. Jarocho Marte MD Age/Sex: 79/F Location: [facility] Status: Signed HPI HPI History of Present Illness Details: Linda Peralta is an 79-year-old female who presents to office today for a cardiovascular follow-up visit. She was noted to have severe aortic stenosis and also moderate mitral and tricuspid regurgitation. She underwent a TAVR withan Sanchez PHONG 3 ultra bioprosthetic #23 valve successfully in October 2024. Post procedure a mean gradient was 5 mmHg the mitral valve was mildly thickened with moderate 2+ mitral regurgitation 3+ tricuspid regurgitation with RVSP of 58 mmHg. Her blood pressure has been somewhat elevated they have not started the lisinopril yet which will be restarted. She otherwise tells me thatshe has been doing well. She denies any chest pain or shortness breath or paroxysmal nocturnal dyspnea or pedal edema. She has had no neck arm or jaw discomfort suggest angina. 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 She has been followed by the renal service. 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: No Accompanied by: Daughter Is patient in pain?: No Allergies ciprofloxacin (From Cipro) Allergy (Verified 11/14/24 09:05) Rash Penicillins Allergy (Verified 11/14/24 09:05) Rash Medications ?Medication ?Instructions ?Recorded ?Confirmed ?Type acetaminophen 500 mg tablet 1,000 mg (2 x 500 mg) PO Q 6H PRN 04/08/20 11/14/24 Rx Pain Score 1-10 denosumab 60 mg/mL subcutaneous 60 mg subcut [id number] #1 mL 11/24/22 11/14/24 Rx syringe (Prolia) nitroglycerin 0.4 mg sublingual 0.4 mg sublingual Q5-1 5M PRN 07/26/23 11/14/24 Rx tablet Cardiac/Chest Pain #25 tabs methenamine hippurate 1 gram tablet 1 g PO QHS 04/29/ 5 11/14/24 History Held on 08/09/24. Instructions: Resume on 08/14/24. simvastatin 20 mg tablet 20 mg PO QHS #90 tabs 11/14/24 Rx ascorbic acid (vitamin C) 1,000 mg 1,000 mg PO QHS 11/14/24 History tablet hydrocortisone 10 mg tablet 10 mg PO TID #27 tabs 07/2211/14/24 Rx apixaban 5 mg tablet (Eliquis) 5 mg PO BID #180 tabs 0 09/17/24 11/14/24 Rx furosemide 20 mg tablet (Lasix) 10 mg PO QAM PRN 11/1411/14/24 History metoprolol succinate 50 mg 50 mg PO QDAY 11/14/2410/22 History tablet,extended release 24 hr Ejection fraction %: 47 Have you fallen in the past year?: No PFSH Medical History Overweight (BMI 25.0-29.9) Aortic stenosis Aortic stenosis, severe Plumas's disease MVP (mitral valve prolapse) Aortic stenosis Hypokalemia Elevated serum creatinine Acute prerenal azotemia History of kidney cancer Chronic kidney disease Hypercalcemia Frequent falls Closed head injury (03/20/20) Hypoglycemia (03/20/20) Acute electrocardiogram changes Atopic dermatitis Osteopenia determined by x-ray History of pulmonary embolism 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) History of left heart catheterization (04/2009) History of left nephrectomy (2000) History of total abdominal hysterectomy History of bladder repair surgery H/O partial nephrectomy (2009) H/O total cystectomy Family History Father CVA (cerebral vascular accident) Mother Myocardial infarction, Onset Age: 87 Other History of DVT (deep vein thrombosis) shelter (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 Social History Smoking Status: Never smoker alcohol intake: never substance use type: does not use caffeine: Yes what type of physical activity do you participate in: walking seatbelt use: always do you feel safe at home: Yes additional social history: [employer]- Retired patient is retired ROS Const Const: Positive for fatigue, weakness (bilateral legs) and difficulty sleeping; Negative for daytime sleepiness ENT ENT: Positive for dizziness; Negative for Nosebleed/epistaxis Cardio Chest Pain: No Palpitations: Yes feels like its: fast Edema: None Resp Respiratory: Positive for SOB with activity; Negative for SOB at rest, SOB orthopnea\SOB lying down or Cough GI GI: Negative nausea, vomiting or heartburn Neuro Neuro: Positive for dizziness and weakness (bilateral legs); Negative for lightheadedness or near syncope Endo Endo: Positive for fatigue Cardiology Exam Const Appearance: cooperative, healthy appearing, no acute distress and well developed; Negative diaphoretic or ill appearing Nutritional Appearance: average body habitus Orientation: alert and oriented x3 Head Head: normocephalic and atraumatic Nose: external nose normal and Negative epistaxis Face and Sinus: face symmetric Eyes General: appearance normal, both eyes and all related structures Conjunctivae: Negative scleral icterus EOM: EOM intact bilaterally Neck Neck: no JVD Carotids: normal carotid upstroke; Negative bruit Neck Mass: Negative Neck mass Chest Chest inspection: normal respiratory effort; Negative respiratory distress, audible wheezes or tachypneic Auscultation: Bilateral: Clear to Auscultation Cardio Rate: regular rate Rhythm: regular rhythm Heart sounds: murmur Murmur: Grade 3/6 and mid diastolic Neuro General: patient alert, patient awake, patient oriented x3 and moves all extremities Extremities Pulses: Normal: Right Radial Pulse and Left Radial Pulse Lower Extremity Edema: None: Bilateral Psych Psychological: normal affect Supplemental Info Supplemental Information Echo Transesophageal (TOMI) 07/03/2024 Interpretation Summary Normal LV size. Left ventricular systolic function is lower limits of normal. The estimated ejection fraction is 47 %. Moderate diffuse aortic valve calcification. Moderate to severe aortic stenosis. Moderate (2+) eccentric mitral valve insufficiency. Moderate concentric left ventricular hypertrophy. Echo Complete 05/24/24 Interpretation Summary Normal LV size. The left ventricular ejection fraction is 45 %. There is mild to moderate mitral annular calcification. Mild-Moderate (1-2+) eccentric mitral valve insufficiency. Stage 1 diastolic dysfunction. Mild concentric left ventricular hypertrophy. Moderate focal aortic valve calcification. Mean aortic valve gradient 39 mmHg. Moderate to severe aortic stenosis. Compared to the previous the aortic stenosis is worse. Echocardiogram 06/12/2023?[facility]: Left ventricle is normal in size. There is mild upper septal left ventricular hypertrophy. Left ventricular systolic function is normal. EF 57?5% Definity contrast used for endocardial border detection. Left ventricular diastolic dysfunction was not evaluated due to greater than 2+ MR. The right ventricle is normal in size. Right ventricular systolic function is normal. Left atrial cavity is moderately dilated. There is moderate 2+ to 3+ late systolic mitral valve regurgitation due to prolapse. Regurgitant orifice area is 0.16 cm?. There is moderate 2+ to 3+ tricuspid valve regurgitation. Tricuspid aortic valve. There is paradoxical low-flow, low gradient, moderatelysevere aortic valve stenosis caused by calcified valve. OMID area is 0.91 cm? bycontinuity, VTI. The peak gradient is 31 mmHg, the mean gradient is 19 mmHg anddimensionless valve index is 0.28. Nuclear stress test 06/14/2023 Conclusion SPECT perfusion study: Normal There is no scintigraphic evidence of inducible ischemia No evidence of scarred myocardium Left ventricle is normal in size. The left ventricle systolic function is normal. Right ventricle is normal in size. The right ventricle systolic function is normal. This is a low risk scan Cardiac Catheterization 09/30/24 CONCLUSIONS Normal coronary arteries Normal LV size, wall motion,and systolic function Aortic Valve Stenosis- Moderate to Severe Carotid ultrasound 05/03/2020 Impression 1 to 15% stenosis right internal carotid artery 1 to 15% stenosis left internal carotid artery Blood flow is antegrade in the right vertebral artery Blood flow is antegrade in the left vertebral artery If clinically indicated we could repeat this study in 1 year Diagnostics: Electrocardiogram Echocardiogram Transesophageal Echocardiogram Stress Test Stress Test Nuclear Medicine Cardiac Catheterization Chest X-Ray Abdomen/Pelvis CT Venous Doppler Study Past Visits: Cardiology Visit Today Assessment and Plan Assessment and Plan (1) MVP (mitral valve prolapse): Status: Inactive Plan: Patient has a history of mitral valve prolapse. Her echocardiogram on 05/24/2024 demonstrated ejection fraction of 45%, with bileaflet diffuse mitral valve thickening, mild to moderate mitral annular calcification with mild to moderate valve insufficiency. This was reviewed with patient. We will continue to monitor this with history, exam, and echocardiograms as deemed appropriate. (2) History of non-ST elevation myocardial infarction (NSTEMI): Status: Resolved Comment: possible coronary embolism Plan: Patient has a history of non-STEMI. Her most recent stress test from 06/12/2023 was negative for ischemia. She appears stable at this time, denies any recent symptoms or events. She will continue with her current medical therapy, along with monitoring for any concerning symptoms. (3) Essential (primary) hypertension: Status: Chronic Plan: Patient has a history of hypertension. Her blood pressure is mildly elevated inthe office today. At this time, she continue with her current medical therapy, along with monitoring her blood pressures at home. She will notify our office of any persistently elevated or low blood pressure readings. She does have a history of chronic kidney disease, stage III will need to take to affect if prescribing any antihypertensive medications. (4) Hyperlipidemia: Status: Chronic Qualifiers: Hyperlipidemia type: unspecified Qualified Code(s): E78.5 - Hyperlipidemia, unspecified Plan: Patient has a history of hyperlipidemia. Her PCP monitors this. Her most recent lipid panel from 02/01/2024: Cholesterol 169, triglycerides 60, HDL 78, LDL 79. She will continue simvastatin 20 mg daily, along with aggressive risk factor and lifestyle modifications. 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 Patient does follow with nephrology for this. (6) shelter (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: Status: Inactive Plan: Patient has a history of PE, and DVT, and cardiac artery. She will continue warfarin therapy, and maintain a therapeutic INR of 2-3. (7) S/P TAVR (transcatheter aortic valve replacement): Status: Acute Plan: Patient is status post TAVR. She is doing well at this time. She does have residual mitral and tricuspid regurgitation. Will continue to observe this for now. She will also adhere with antibiotic prophylaxis. At this time I would not suggest that we make any changes. Orders: Orders 12 Lead EKG performed by [facility] Today I25.2 - Old myocardial infarction, I35.0 - Nonrheumatic aortic (valve) stenosis Plan Details Additional Comments: Patient will follow-up in 6 months, or sooner if needed. Thank you for allowing me to participate in the care of your patient. Please donot hesitate to call if any issues arise. This note was generated using a voice recognition system and there may be incorrect words, spelling, or punctuation that were not noted when reviewing theoffice note prior to saving. Portions of this documentation were copied and pasted from previous office visitnotes to provide cohesive continuity of the history. The note has been reviewed,edited, and updated, as necessary. 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 Z79.01 S/P TAVR (transcatheter aortic valve replacement) Z95.2 Coding Level of Care Code Off vis,est,level 4 Diagnoses MVP (mitral valve prolapse) I34.1 History of non-ST elevation myocardial infarction (NSTEMI) I25.2 Essential (primary) hypertension I10 Hyperlipidemia, unspecified hyperlipidemia type E78.5 Hyperlipidemia type: unspecified Chronic kidney disease, stage 3 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 Amos Floyd MD ~ [employer] Work Phone: ReSunpreme for referral (narrative)* Diagnostic Procedure Only (Routine) - Authorized Specialty Diagnoses / Procedures Referred By Contac dana Referred To Contact [facility] Diagnoses Encounter for screening mammogram for malignant neoplasm of breast Procedures TAE SCREENING SCREENING MAMMOGRAPHY BI 2-VIEW BREAST INC Amos Higgins MD [facility] [place] [id number] [facility] [place] [id number] Referral ID Status Reason Start Date Expiration Date Visits Requested Visits Authorized [id number] Authorized Auto-Generat ed Referral 01/05/2023 [address] [facility] for referral (narrative)* Diagnostic Procedure Only (Routine) - Closed Specialty Diagnoses / Procedures Referred By Contac Referred To Contact BR IMAGING Diagnoses Encounter for screening mammogram for malignant neoplasm of breast Procedures TAE SCREENING SCREENING MAMMOGRAPHY BI 2-VIEW BREAST INC Amos Higgins MD [address] [place] [id number] Br Imaging [employer] [place] [id number] Referral ID Status Reason Start Date Expiration Date V isits Requested Visits Authorized [id number] Closed Auto-Generate d Referral 12/06/2021 01/05/2023 [address] [facility] for referral (narrative)* Diagnostic Procedure Only (Routine) - Pending Review Specialty Diagnoses / Procedures Referred By Contac t Referred To Contact XR IMAGING Diagnoses Closed displaced fracture of fifth metatarsal bone of right foot, initial encounter Procedures XR FOOT GENERAL 3V AP/LAT/OBL RIGHT RADEX FOOT COMPLETE MINIMUM 3 VIEWS Omar Cruz[address] [place] [address] [place] [address] Referral ID Status Reason Start Date Expiration Date Visits Requested Visits Authorized [id number] Pending Review Auto-Generat ed Referral 01/18/2024 [address] [facility] for referral (narrative)* Diagnostic Procedure Only (Routine) - Closed Specialty Diagnoses / Procedures Referred By Contac t Referred To Contact XR IMAGING Diagnoses Closed displaced fracture of fifth metatarsal bone of right foot, initial encounter Procedures XR FOOT GENERAL 3V AP/LAT/OBL RIGHT RADEX FOOT COMPLETE MINIMUM 3 V[place]WS [place] [address] [place] [address] Referral ID Status Reason Start Date Expiration Date V isits Requested Visits Authorized [id number] Closed Auto-Generate d Referral 12/17/2022 12/17/2023 [address] [facility] for referral (narrative)* Diagnostic Procedure Only (Routine) - Closed Specialty Diagnoses / Procedures Referred By Contac t Referred To Contact XR IMAGING Diagnoses Closed displaced fracture of fifth metatarsal bone of right foot, initial encounter Procedures XR FOOT GENERAL 3V AP/LAT/OBL RIGHT RADEX FOOT COMPLETE MINIMUM 3 VIEWS Omar Cruz[address] [place] [address] [place] [address] Referral ID Status Reason Start Date Expiration Date V isits Requested Visits Authorized [id number] Closed Auto-Generate d Referral 11/17/2022 12/17/2023 [address] [facility] for referral (narrative)* Diagnostic Procedure Only (Urgent) - Closed Specialty Diagnoses / Procedures Referred By Contac t Referred To Contact XR IMAGING Diagnoses Foot pain, right Procedures XR FOOT GENERAL 3V AP/LAT/OBL RIGHT RADEX FOOT COMPLETE MINIMUM 3 VIEWS Jacinda Enriquez APRN.TELLY [address] [place] [address] [place] [address] Referral ID Status Reason Start Date Expiration Date V isits Requested Visits Authorized [id number] Closed Auto-Generate d Referral 11/08/2022 12/08/2023 [address] [facility] for referral (narrative)* Diagnostic Procedure Only (Routine) - Closed Specialty Diagnoses / Procedures Referred By Contac t Referred To Contact XR IMAGING Diagnoses Hip pain, unspecified laterality Procedures XR HIP BILATERAL 5V PEL/AP/LAT EACH HIP RADEX HIPS BILATERAL WITH PELVIS MINIMUM 5 VIEWS Amos Floyd MD [address] [place] [address] [place] [address] Referral ID Status Reason Start Date Expiration Date V isits Requested Visits Authorized [id number] Closed Auto-Generate d Referral 10/26/2022 11/25/2023 [address] [facility] for referral (narrative)* Diagnostic Procedure Only (Routine) - New Request Specialty Diagnoses / Procedures Referred By Contac t Referred To Contact XR IMAGING Diagnoses Age-related osteoporosis with current pathological fracture with routine healing Procedures DXA-AXIAL SKELETON DXA BONE DENSITY STUDY 1/> SITES AXIAL SKAmos Quick MD [address] [place] [address] [place] [address] Referral ID Status Reason Start Date Expiration Date Visits Requested Visits Authorized [id number] New Request Auto-Generat ed Referral 12/29/2024 [address] [facility] for referral (narrative)No reason for referral information availableWAvita Health [facility] Work Phone: Reason for visit Narrative* Diagnostic Procedure Only (Routine) - Closed Specialty Diagnoses / Procedures Referred By Contac t Referred To Contact BR IMAGING Diagnoses Encounter for screening mammogram for malignant neoplasm of breast Procedures TAE SCREENING SCREENING MAMMOGRAPHY BI 2-VIEW BREAST INC CAD Amos Floyd MD [address] [place] [address] Br Imaging [address] [place] [address] Referral ID Status Reason Start Date Expiration Date V isits Requested Visits Authorized [id number] Closed Auto-Generate d Referral 12/06/2021 01/05/2023 [address] [facility] for visit Narrative* Diagnostic Procedure Only (Routine) - Closed Specialty Diagnoses / Procedures Referred By Contac t Referred To Contact XR IMAGING Diagnoses Closed displaced fracture of fifth metatarsal bone of right foot, initial encounter Procedures XR FOOT GENERAL 3V AP/LAT/OBL RIGHT RADEX FOOT COMPLETE MINIMUM 3 VIEWS TestOmar suazo [address] [place] [address] [place] [address] Referral ID Status Reason Start Date Expiration Date V isits Requested Visits Authorized [id number] Closed Auto-Generate d Referral 12/17/2022 12/17/2023 [address] [facility] for visit Narrative* Diagnostic Procedure Only (Routine) - Closed Specialty Diagnoses / Procedures Referred By Contac t Referred To Contact XR IMAGING Diagnoses Closed displaced fracture of fifth metatarsal bone of right foot, initial encounter Procedures XR FOOT GENERAL 3V AP/LAT/OBL RIGHT RADEX FOOT COMPLETE MINIMUM 3 VIEWS TestraOmar bernardo [address] [place] [address] [place] [address] Referral ID Status Reason Start Date Expiration Date V isits Requested Visits Authorized [id number] Closed Auto-Generate d Referral 11/17/2022 12/17/2023 [address] [facility] for visit Narrative* Diagnostic Procedure Only (Routine) - Closed Specialty Diagnoses / Procedures Referred By Contac t Referred To Contact XR IMAGING Diagnoses Closed displaced fracture of fifth metatarsal bone of right foot, initial encounter Procedures XR FOOT GENERAL 3V AP/LAT/OBL RIGHT RADEX FOOT COMPLETE MINIMUM 3 VIEWS Jaycelakeisha Omar [address] [place] [address] [place] [address] Referral ID Status Reason Start Date Expiration Date V isits Requested Visits Authorized [id number] Closed Auto-Generate d Referral 12/19/2022 01/18/2024 [address] [facility] for visit Narrative* Diagnostic Procedure Only (Urgent) - Closed Specialty Diagnoses / Procedures Referred By Contac t Referred To Contact XR IMAGING Diagnoses Foot pain, right Procedures XR FOOT GENERAL 3V AP/LAT/OBL RIGHT RADEX FOOT COMPLETE MINIMUM 3 VIEWS Jacinda Enriquez APRN.[employer] SPECIALIST [address] [place] [address] [place] [address] Referral ID Status Reason Start Date Expiration Date V isits Requested Visits Authorized [id number] Closed Auto-Generate d Referral 11/08/2022 12/08/2023 [address] [facility] for visit Narrative* Diagnostic Procedure Only (Routine) - Closed Specialty Diagnoses / Procedures Referred By Contac t Referred To Contact XR IMAGING Diagnoses Hip pain, unspecified laterality Procedures XR HIP BILATERAL 5V PEL/AP/LAT EACH HIP RADEX HIPS BILATERAL WITH PELVIS MINIMUM 5 VIEWS Amos Floyd MD [address] [place] [address] [place] [address] Referral ID Status Reason Start Date Expiration Date V isits Requested Visits Authorized [id number] Closed Auto-Generate d Referral 10/26/2022 11/25/2023 [address] [facility] for visit Narrative* Imaging (Routine) - Closed Specialty Diagnoses / Procedures Referred By Contac t Referred To Contact Radiology Diagnoses Nonrheumatic aortic valve stenosis Procedures CTA Angiogram TAVR Dylon Gupta APRN - [employer] CONTR[employer] SPECIALIST [address] [place] [address] Phone: tel: fax: Referral ID Status Reason Start Date Expiration Date Visits Re quested Visits Authorized [id number] Closed 09/03/2024 09/03/2025 1 1 [facility] N[facility]* Auth/Cert (Routine) Specialty Diagnoses / Procedures Referred By Fransico Referred To Contact Diagnoses Severe aortic stenosis Procedures TRANSCATHETER AORTIC VALVE REPLACEMENT, TRANSTHORACIC ECHOCARDIOGRAM TRANSCATHETER AORTIC VALVE REPLACEMENT, TRANSTHORACIC ECHOCARDIOGRAM Memo Canas MD [address] [place] [address] Phone: tel: fax: [facility] OR [address] [place] [address] Phone: tel: Referral ID Status Reason Start Date Expiration Date Visits Re quested Visits Authorized 1 1 [facility] Narrative* Imaging (Routine) - Closed Specialty Diagnoses / Procedures [facility] Referred To Contact Cardiology Diagnoses Severe aortic stenosis Procedures Transthoracic echocardiogram (TTE) complete with contrast, bubble, strain, and 3D PRN SD ECHO TTHRC R-T 2D W/WOM-MODE COMPL SPEC&COLR D SD TTE W OR WO FOL WCON,DOPPLER Dylon Gupta, [place] [address] Phone: tel: fax: Referral ID Status Reason Start Date Expiration Date Visits Re quested Visits Authorized [id number] Closed 10/24/2024 10/24/2025 1 1 [facility] Summary Purpose Family History Relationship Condition Age at Onset Recorded Date/T rupa father Cerebrovascular accident (CVA) Unknown mother Myocardial infarction 87 Relationship Condition Age at Onset Recorded Date/T rupa Not Specified History of deep venous thrombosis Unknow n shelter current us e of anticoagulant therapy Unknown father Cerebrovascular accident (CVA) Unknown mother Myocardial infarction 87 Advance Directives Documents on File Type Date Recorded 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 Advance Directive(s) 06/15/2023 1:23 PM Date Activated Date Inactivated Comments 06/09/2023 9:18 AM 06/13/2023 5:43 PM Question Answer Comments DNR Order Discussed With: Patient Advance Directive Response Recorded Date/ Time Advance Directives Yes March 24, 2016 12:54pm Living Will Yes April 23, 2020 1:27am Power of Scale Manager Yes April 23 1:27am Documents on File Type Date Recorded 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 Advance Directive(s) Advance Directive(s) 03/25/2016 3:29 PM Advance Directive(s) 03/22/2016 8:29 AM Advance Directive(s) 09/14/2015 10:37 AM Advance Directive Response Recorded Date/ Time Name of Medical Power of Scale Manager Echo Bravo November 17, 2021 1:25am Advance Directives Yes March 24, 2016 12:54pm Living Will Yes November 17, 2021 1:25am Power of Scale Manager Yes October 1:25am Advance Directive Response Recorded Date/ Time Name of Medical Power of Scale Manager Echo Bravo November 17, 2021 12:25am Advance Directives Yes March 24, 2016 11:54am Living Will Yes November 17, 2021 12:25am Power of Scale Manager Yes October 12:25am Advance Directive Response Recorded Date/ Time Advance Directives Yes March 24, 2016 11:54am Living Will Yes November 17, 2021 12:25am Power of Scale Manager Yes October 12:25am Advance Directive Response Recorded Date/ Time Advance Directives Yes March 24, 2016 12:54pm Living Will Yes November 17, 2021 1:25am Power of Scale Manager Yes October 1:25am Advance Directive Response Recorded Date/ Time Advance Directives Yes March 24, 2016 12:54pm Living Will No May 15, 2023 3:08pm Power of Scale Manager No May 14 3:08pm Advance Directive Response Recorded Date/ Time Name of Medical Power of Scale Manager souleymane michele May 23, 2023 8:15pm Advance Directives Yes March 24, 2016 12:54pm Living Will Yes May 23, 2023 8:15pm Power of Scale Manager Yes May 22 8:15pm Documents on File Type Date Recorded 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 Healthcare Power of Atty 05/12/2020 Living Will 05/12/2020 Latest Code Status on File Code Status Date Activated Date Inactivated Comments DNR and No Intubation and No ICU 05/24/2023 2:11 AM Question Answer Comments Plan of Care: Code Status Discussi on Completed Decision Maker: Patient Date Activated Date Inactivated Comments 06/09/2023 9:18 AM Documents on File Type Date Recorded 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 Advance Directive(s) 06/15/2023 1:23 PM Date Activated Date Inactivated Comments 06/09/2023 9:18 AM 06/13/2023 5:43 PM Question Answer Comments DNR Order Discussed With: Patient Advance Directive Response Recorded Date/ Time Living Will Yes November 17, 2021 1:25am Do you have a Healthcare Power of Scale Manager? Yes November 17, 2021 1:25am Living Will Yes March 23 12:17am Do you have a Healthcare Power of Scale Manager? Yes March 23, 2024 12:17am Living Will Yes January 19 11:49pm Do you have a Healthcare Power of Scale Manager? Yes January 20, 2024 11:49pm Advance Directives Yes March 24, 2016 12:54pm Advance Directive Response Recorded Date/ Time Living Will Yes November 17, 2021 1:25am Do you have a Healthcare Power of Scale Manager? Yes November 17, 2021 1:25am Living Will Yes March 23 12:17am Do you have a Healthcare Power of Scale Manager? Yes March 23, 2024 12:17am Living Will Yes May 23, 2023 8:15pm Do you have a Healthcare Power of Scale Manager? Yes May 23, 2023 8:15pm Living Will Yes January 19 11:49pm Do you have a Healthcare Power of Scale Manager? Yes January 20, 2024 11:49pm Living Will Yes May 20, 2024 9:59pm Do you have a Healthcare Power of Scale Manager? Yes May 20, 2024 9:59pm Advance Directives Yes March 24, 2016 12:54pm Advance Directive Response Recorded Date/ Time Living Will Yes November 17, 2021 1:25am Do you have a Healthcare Power of Scale Manager? Yes November 17, 2021 1:25am Living Will Yes March 23 12:17am Do you have a Healthcare Power of Scale Manager? Yes March 23, 2024 12:17am Living Will Yes June 19, 2024 8:48pm Do you have a Healthcare Power of Scale Manager? Yes June 19, 2024 8:48pm Living Will Yes May 23, 2023 8:15pm Do you have a Healthcare Power of Scale Manager? Yes May 23, 2023 8:15pm Living Will Yes January 19 11:49pm Do you have a Healthcare Power of Scale Manager? Yes January 20, 2024 11:49pm Living Will Yes May 20, 2024 9:59pm Do you have a Healthcare Power of Scale Manager? Yes May 20, 2024 9:59pm Advance Directives Yes March 24, 2016 12:54pm Advance Directive Response Recorded Date/ Time Living Will Yes November 17, 2021 1:25am Do you have a Healthcare Power of Scale Manager? Yes November 17, 2021 1:25am Living Will Yes March 23 12:17am Do you have a Healthcare Power of Scale Manager? Yes March 23, 2024 12:17am Living Will Yes June 19, 2024 8:48pm Do you have a Healthcare Power of Scale Manager? Yes June 19, 2024 8:48pm Living Will Yes May 23, 2023 8:15pm Do you have a Healthcare Power of Scale Manager? Yes May 23, 2023 8:15pm Living Will Yes May 20, 2024 9:59pm Do you have a Healthcare Power of Scale Manager? Yes May 20, 2024 9:59pm Advance Directives Yes March 24, 2016 12:54pm Advance Directive Response Recorded Date/ Time Living Will Yes November 17, 2021 1:25am Do you have a Healthcare Pow er of Scale Manager? Yes November 17, 2021 1:25am Living Will Yes March 23 12:17am Do you have a Healthcare Pow er of Scale Manager? Yes March 23, 2024 12:17am Living Will Yes June 19, 2024 8:48pm Do you have a Healthcare Pow er of Scale Manager? Yes June 19, 2024 8:48pm Living Will Yes May 23, 2023 8:15pm Do you have a Healthcare Pow er of Scale Manager? Yes May 23, 2023 8:15pm Living Will Yes May 20, 2024 9:59pm Do you have a Healthcare Pow er of Scale Manager? Yes May 20, 2024 9:59pm Advance Directives on File Yes August 05, 2024 7:22am Living Will Yes August 05, 2024 7:22am Do you have a Healthcare Pow er of Scale Manager? Yes August 05, 2024 7:22am Name of Medical Power of Scale Manager daughter bisi simpson August 05, 2024 7:22am Advance Directives Yes August 05 7:22am Advance Directive Response Recorded Date/ Time Living Will Yes November 17, 2021 1:25am Do you have a Healthcare Pow er of Scale Manager? Yes November 17, 2021 1:25am Living Will Yes March 23 12:17am Do you have a Healthcare Pow er of Scale Manager? Yes March 23, 2024 12:17am Living Will Yes June 19, 2024 8:48pm Do you have a Healthcare Pow er of Scale Manager? Yes June 19, 2024 8:48pm Living Will Yes May 23, 2023 8:15pm Do you have a Healthcare Pow er of Scale Manager? Yes May 23, 2023 8:15pm Living Will Yes May 20, 2024 9:59pm Do you have a Healthcare Pow er of Scale Manager? Yes May 20, 2024 9:59pm Advance Directives on File Yes August 05, 2024 7:22am Living Will Yes August 05, 2024 7:22am Do you have a Healthcare Pow er of Scale Manager? Yes August 05, 2024 7:22am Name of Medical Power of Scale Manager daughter bisi simpson August 05, 2024 7:22am Advance Directives Yes August 05 7:22am Do you have a Healthcare Pow er of Scale Manager? Yes August 07, 2024 4:00pm Advance Directive Response Recorded Date/ Time Living Will Yes November 17, 2021 1:25am Do you have a Healthcare Pow er of Scale Manager? Yes November 17, 2021 1:25am Living Will Yes March 23 12:17am Do you have a Healthcare Pow er of Scale Manager? Yes March 23, 2024 12:17am Living Will Yes June 19, 2024 8:48pm Do you have a Healthcare Pow er of Scale Manager? Yes June 19, 2024 8:48pm Living Will Yes May 23, 2023 8:15pm Do you have a Healthcare Pow er of Scale Manager? Yes May 23, 2023 8:15pm Living Will Yes May 20, 2024 9:59pm Do you have a Healthcare Pow er of Scale Manager? Yes May 20, 2024 9:59pm Advance Directives on File Yes August 05, 2024 7:22am Living Will Yes August 05, 2024 7:22am Do you have a Healthcare Pow er of Scale Manager? Yes August 05, 2024 7:22am Name of Medical Power of Scale Manager daughter bisi simpson August 05, 2024 7:22am Advance Directives Yes August 05 7:22am Do you have a Healthcare Pow er of Scale Manager? Yes August 07, 2024 9:52pm Name of Medical Power of Scale Manager souleymane August 07, 2024 9:52pm Advance Directive Response Recorded Date/ Time Living Will Yes June 19, 2024 8:48pm Do you have a Healthcare Power of Scale Manager? Yes June 19, 2024 8:48pm Living Will Yes May 23, 2023 8:15pm Do you have a Healthcare Power of Scale Manager? Yes May 23, 2023 8:15pm Living Will Yes May 20, 2024 9:59pm Do you have a Healthcare Power of Scale Manager? Yes May 20, 2024 9:59pm Advance Directives on File Yes August 05, 2024 7:22am Living Will Yes August 05, 2024 7:22am Do you have a Healthcare Power of Scale Manager? Yes August 05, 2024 7:22am Name of Medical Power of Scale Manager daughter bisi simpson August 05, 2024 7:22am Advance Directives Yes August 05 7:22am Do you have a Healthcare Power of Scale Manager? Yes August 07, 2024 9:52pm Name of Medical Power of Scale Manager souleymane August 07, 2024 9:52pm Advance Directive Response Recorded Date/ Time Living Will Yes June 19, 2024 8:48pm Do you have a Healthcare Power of Scale Manager? Yes June 19, 2024 8:48pm Advance Directives on File Yes August 05, 2024 7:22am Living Will Yes August 05, 2024 7:22am Do you have a Healthcare Power of Scale Manager? Yes August 05, 2024 7:22am Name of Medical Power of Scale Manager leny simpson August 05, 2024 7:22am Advance Directives Yes August 05 7:22am Do you have a Healthcare Power of Scale Manager? Yes August 07, 2024 9:52pm Name of Medical Power of Scale Manager souleymane August 07, 2024 9:52pm Advance Directive Response Recorded Date/ Time Advance Directives on File Yes August 05, 2024 7:22am Living Will Yes August 05, 2024 7:22am Do you have a Healthcare Power of Scale Manager? Yes August 05, 2024 7:22am Name of Medical Power of Scale Manager leny simpson August 05, 2024 7:22am Advance Directives Yes August 05 7:22am Do you have a Healthcare Power of Scale Manager? Yes August 07, 2024 9:52pm Name of Medical Power of Scale Manager souleymane August 07, 2024 9:52pm Date Activated Date Inactivated Comments 10/23/2024 5:41 AM Date Activated Date Inactivated Comments 10/23/2024 5:41 AM 10/24/2024 3:36 PM Date Activated Date Inactivated Comments 10/23/2024 5:41 AM 10/24/2024 3:36 PM Advance Directive Response Recorded Date/ Time Advance Directives Yes August 05 7:22am Hospital Course Note Send Summary: Discharge [facility] Providers: Provider RoleProvider Name Amos Monge James ConsultingAlvin Sawyer ConsultingNatalie, Di ConsultingLeigh Billy ConsultingVicky Boyd ConsultingMarco A, Amos Rosales Note Recipients: Amos Floyd MD - [phone] [] Discharge: Summary: Admission Date: .01-May-2020 20:47:00 [...] (acute kidney in jury) Elevated troponin Hypotension Plumas disease Chronic kidney disease Chief Complaint S/O INR S/O INR S/O INR S/O INR HYPOTENSION, ANGELA HYPOTENSION, ANGELA HYPOTENSION, ANGELA HYPOTENSION, ANGELA Reason for Visit Moris disease ANGELA (acute kidney injury) Elevated troponin Hypotension Chronic kidney disease 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, 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 Chief Complaint S/O INR S/O INR S/O INR HYPOTENSION, ANGELA HYPOTENSION, ANGELA HYPOTENSION, ANGELA HYPOTENSION, ANGELA PROLIA/60MG Reason for Visit ANGELA (acute kidney in jury) Elevated troponin Hypotension Chief Complaint S/O INR S/O INR HYPOTENSION, ANGELA HYPOTENSION, ANGELA HYPOTENSION, ANGELA HYPOTENSION, ANGELA PROLIA/60MG 1 Y /[facility] S/p hospital E ORDER Reason for Visit Plumas disease ANGELA (acute kidney injury) Elevated troponin Hypotension Plumas disease Osteoporosis Essential (primary) hypertension History of pulmonary embolism Hyperlipidemia History of non-ST elevation myocardial infarction (NSTEMI) Chief Complaint S/O INR HYPOTENSION, ANGELA HYPOTENSION, ANGELA HYPOTENSION, ANGELA HYPOTENSION, ANGELA PROLIA/60MG 1 Y /[facility] S/p hospital E ORDER 6 wk fu EOERS-3 ORDERING DRS E ORDER Reason for Visit Plumas disease ANGELA (acute kidney injury) Elevated troponin Hypotension Plumas disease Osteoporosis Essential (primary) hypertension History of pulmonary embolism Hyperlipidemia History of non-ST elevation myocardial infarction (NSTEMI) Essential (primary) hypertension History of pulmonary embolism Hyperlipidemia History of non-ST elevation myocardial infarction (NSTEMI) Chief Complaint PROLIA/60MG 1 Y /[facility] S/ hospital E ORDER 6 wk fu EORDERS-3 ORDERING DRS E ORDER E ORDER Reason for Visit Moris disease Osteoporosis Essential (primary) hypertension History of pulmonary embolism Hyperlipidemia History of non-ST elevation myocardial infarction (NSTEMI) Essential (primary) hypertension History of pulmonary embolism Hyperlipidemia History of non-ST elevation myocardial infarction (NSTEMI) Chief Complaint E ORDER 6 wk fu EOERS-3 ORDERING DRS E ORDER E ORDER E [...] Y FU PROLIA/60MG EORDER/INR Reason for Visit Plumas disease Osteoporosis Chief Complaint EORDER/INR EORDER/INR 1 Y FU PROLIA/60MG EORDER/INR EORDER/INR Reason for Visit Plumas disease Osteoporosis Chief Complaint EORDER/INR 1 Y FU PROLIA/60MG EORDER/INR EORDER/INR EORDER/INR Reason for Visit Moris disease Osteoporosis Chief Complaint 1 Y FU PROLIA/60MG EORDER/INR EORDER/INR EORDER/INR EORDER/INR 6 M FU Reason for Visit Moris disease Osteoporosis Aortic stenosis Dizziness MVP (mitral [...] Aortic stenosis April 29, 2024 10: 53am 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 April 29, [...] ALSO SEPERATE ORDER April 2:09pm 1 Y April 29, 2024 10: 53am INR ALSO [...] ALSO SEPERATE ORDER April 2:09pm 1 Y April 29, 2024 10: 53am INR ALSO SEPERATE ORDER May 1:06pm AVS, MVP May 24, 2024 1:08 pm INR June 21, 2024 9:21am SEVERE AORTIC STENOSIS July 03, 2024 10 :47am Chief Complaint Admit Date INR ALSO SEPERATE ORDER April 2:09pm 1 Y April 29, 2024 10: 53am INR ALSO SEPERATE ORDER May 1:06pm AVS, MVP May 24, 2024 1:08 pm INR June 21, 2024 9:21am SEVERE AORTIC STENOSIS July 03, 2024 10 :47am UPDATE H & P July 23, 2024 8:33a m Reason for Visit Admit Date Aortic stenosis April 29, 2024 10: 53am shelter (current) use of anticoagulant s April 29, [...] 2024 8:33a m Nonrheumatic aortic (valve) stenosis Jul 6:48am Reason for Visit Admit Date Aortic stenosis April 29, 2024 10: 53am 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 April 29, 2024 10:53am MVP (mitral valve prolapse) April 29, 2024 10:53am Chronic kidney disease, stage 3 April 292024 10:53am Essential (primary) hypertension April 202024 10:53am Hyperlipidemia April 29, 2024 10: 53am History of non-ST elevation myocardial i nfarction (NSTEMI) April 29, 2024 10:53am Aortic stenosis July 23, 2024 8:33a m shelter (current) use of anticoagulant s July 23, [...] 2024 8:33a m Nonrheumatic aortic (valve) stenosis Jul 6:48am UTI, SEPSIS, HYPOTENSION WITH ORTHOSTATI C August 07, 2024 8:16pm Reason for Visit Admit Date Aortic stenosis April 29, 2024 10: 53am 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 April 29, 2024 10:53am MVP (mitral valve prolapse) April 29, 2024 10:53am Chronic kidney disease, stage 3 April 292024 10:53am Essential (primary) hypertension April 202024 10:53am Hyperlipidemia April 29, 2024 10: 53am History of non-ST elevation myocardial i nfarction (NSTEMI) April 29, 2024 10:53am Aortic stenosis July 23, 2024 8:33a m 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 July 23, 2024 8:33am MVP (mitral valve prolapse) July 23 8:33am Chronic kidney disease, stage 3 July 8:33am Essential (primary) hypertension July 8:33am Hyperlipidemia July 23, 2024 8:33a m History of non-ST elevation myocardial i nfarction (NSTEMI) July 23, 2024 8:33am Acute cystitis without hematuria August 072024 8:16pm Acute hypotension August 07, 2024 8:16 pm Plumas's disease August 07, 2024 8:16 pm Aortic stenosis August 07, 2024 8:16 pm Aortic stenosis, severe August 07, 2024 8:16pm Complicated urinary tract infection August 07, 2024 8:16pm Dark stools August 07, 2024 8:16 pm Dehydration August 07, 2024 8:16 pm Elevated troponin August 07, 2024 8:16 pm Leukocytosis August 07, 2024 8:16 pm 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 August 07, 2024 8:16pm Metabolic acidosis August 07, 2024 8:16 pm MVP (mitral valve prolapse) August 07 025 8:16pm Overweight (BMI 25.0-29.9) August 07 8:16pm Sepsis August 07, 2024 8:16 pm Chronic kidney disease, stage 3 July 8:16pm Chief Complaint Admit Date INR ALSO SEPERATE ORDER April 2:09pm 1 Y FU April 29, 2024 10: 53am INR ALSO SEPERATE ORDER May 1:06pm AVS, MVP May 24, 2024 1:08 pm INR June 21, 2024 9:21am SEVERE AORTIC STENOSIS July 03, 2024 10 :47am UPDATE H & P July 23, 2024 8:33a m Nonrheumatic aortic (valve) stenosis Silvio e 2024 6:48am UTI, SEPSIS, HYPOTENSION WITH ORTHOSTATI C August 07, 2024 8:16pm UTI, SEPSIS, HYPOTENSION WITH ORTHOSTATI C August 08, 2024 10:28am UTI, SEPSIS, HYPOTENSION WITH ORTHOSTATI C August 09, 2024 2:37pm Reason for Visit Admit Date Aortic stenosis April 29, 2024 10: 53am 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 April 29, 2024 10:53am MVP (mitral valve prolapse) April 29, 2024 10:53am Chronic kidney disease, stage 3 April 292024 10:53am Essential (primary) hypertension April 202024 10:53am Hyperlipidemia April 29, 2024 10: 53am History of non-ST elevation myocardial i nfarction (NSTEMI) April 29, 2024 10:53am Aortic stenosis July 23, 2024 8:33a m 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 July 23, 2024 8:33am MVP (mitral valve prolapse) July 23 8:33am Chronic kidney disease, stage 3 July 8:33am Essential (primary) hypertension July 8:33am Hyperlipidemia July 23, 2024 8:33a m History of non-ST elevation myocardial i nfarction (NSTEMI) July 23, 2024 8:33am Acute cystitis without hematuria August 072024 8:16pm Acute hypotension August 07, 2024 8:16 pm Plumas's disease August 07, 2024 8:16 pm Aortic stenosis August 07, 2024 8:16 pm Aortic stenosis, severe August 07, 2024 8:16pm Bradycardia August 07, 2024 8:16 pm Complicated urinary tract infection August 07, 2024 8:16pm Dark stools August 07, 2024 8:16 pm Dehydration August 07, 2024 8:16 pm Elevated troponin August 07, 2024 8:16 pm Leukocytosis August 07, 2024 8:16 pm shelter (current) use of anticoagulant s August 07, 2024 8:16pm Metabolic acidosis August 07, 2024 8:16 pm MVP (mitral valve prolapse) August 07 8:16pm Overweight (BMI 25.0-29.9) August 07 8:16pm Sepsis August 07, 2024 8:16 pm Chronic kidney disease, stage 3 July 8:16pm Chief Complaint Admit Date INR ALSO SEPERATE ORDER May 1:06pm AVS, MVP May 24, 2024 1:08 pm INR June 21, 2024 9:21am SEVERE AORTIC STENOSIS July 03, 2024 10 :47am UPDATE H & P July 23, 2024 8:33a m Nonrheumatic aortic (valve) stenosis Silvio 2024 6:48am UTI, SEPSIS, HYPOTENSION WITH ORTHOSTATI C August 07, 2024 8:16pm UTI, SEPSIS, HYPOTENSION WITH ORTHOSTATI C August 08, 2024 10:28am PAIN August 09, 2024 8:10 am UTI, SEPSIS, HYPOTENSION WITH ORTHOSTATI C August 09, 2024 2:37pm Reason for Visit Admit Date Aortic stenosis July 23, 2024 8:33a m Essential (primary) hypertension July 8:33am Hyperlipidemia July 23, 2024 8:33a m History of non-ST elevation myocardial i nfarction (NSTEMI) July 23, 2024 8:33am Chronic kidney disease, stage 3 July 8:33am shelter (current) use of anticoagulant s July 23, 2024 8:33am MVP (mitral valve prolapse) July 23 8:33am Acute cystitis without hematuria August 072024 8:16pm Acute hypotension August 07, 2024 8:16 pm Bradycardia August 07, 2024 8:16 pm Complicated urinary tract infection August 07, 2024 8:16pm Dark stools August 07, 2024 8:16 pm Dehydration August 07, 2024 8:16 pm Elevated troponin August 07, 2024 8:16 pm Leukocytosis August 07, 2024 8:16 pm Metabolic acidosis August 07, 2024 8:16 pm Sepsis August 07, 2024 8:16 pm Plumas's disease August 07, 2024 8:16 pm Aortic stenosis August 07, 2024 8:16 pm Aortic stenosis, severe August 07, 2024 8:16pm Chronic kidney disease, stage 3 July 8:16pm shelter (current) use of anticoagulant s August 07, 2024 8:16pm MVP (mitral valve prolapse) August 07 8:16pm Overweight (BMI 25.0-29.9) August 07 8:16pm Chief Complaint Admit Date INR June 21, 2024 9:21am SEVERE AORTIC STENOSIS July 03, 2024 10 :47am UPDATE H & P July 23, 2024 8:33a m Nonrheumatic aortic (valve) stenosis Jul 6:48am UTI, SEPSIS, HYPOTENSION WITH ORTHOSTATI C August 07, 2024 8:16pm UTI, SEPSIS, HYPOTENSION WITH ORTHOSTATI C August 08, 2024 10:28am PAIN August 09, 2024 8:10 am UTI, SEPSIS, HYPOTENSION WITH ORTHOSTATI C August 09, 2024 2:37pm Chief Complaint Admit Date SEVERE AORTIC STENOSIS July 03, 2024 10 :47am UPDATE H & P July 23, 2024 8:33a m Nonrheumatic aortic (valve) stenosis Jul 6:48am UTI, SEPSIS, HYPOTENSION WITH ORTHOSTATI C August 07, 2024 8:16pm UTI, SEPSIS, HYPOTENSION WITH ORTHOSTATI C August 08, 2024 10:28am PAIN August 09, 2024 8:10 am UTI, SEPSIS, HYPOTENSION WITH ORTHOSTATI C August 09, 2024 2:37pm NEED ORDER October 15, 2024 10 :59am Chief Complaint Admit Date UPDATE H & P July 23, 2024 8:33a m Nonrheumatic aortic (valve) stenosis Jul 6:48am UTI, SEPSIS, HYPOTENSION WITH ORTHOSTATI C August 07, 2024 8:16pm UTI, SEPSIS, HYPOTENSION WITH ORTHOSTATI C August 08, 2024 10:28am PAIN August 09, 2024 8:10 am UTI, SEPSIS, HYPOTENSION WITH ORTHOSTATI C August 09, 2024 2:37pm NEED ORDER October 15, 2024 10 :59am 6 M FU November 14, 2024 8:57am Reason for Visit Admit Date Aortic stenosis July 23, 2024 8:33a m Essential (primary) hypertension July 8:33am Hyperlipidemia July 23, 2024 8:33a m History of non-ST elevation myocardial infarction (NSTEMI) July 23, 2024 8:33am Chronic kidney disease, stage 3 July 8:33am shelter (current) use of anticoagulant s July 23, 2024 8:33am MVP (mitral valve prolapse) July 23 8:33am Acute cystitis without hematuria August 072024 8:16pm Acute hypotension August 07, 2024 8:16 pm Bradycardia August 07, 2024 8:16 pm Complicated urinary tract infection August 07, 2024 8:16pm Dark stools August 07, 2024 8:16 pm Dehydration August 07, 2024 8:16 pm Elevated troponin August 07, 2024 8:16 pm Leukocytosis August 07, 2024 8:16 pm Metabolic acidosis August 07, 2024 8:16 pm Sepsis August 07, 2024 8:16 pm 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, 2024 8:16 pm Aortic stenosis August 07, 2024 8:16 pm Aortic stenosis, severe August 07, 2024 8:16pm Chronic kidney disease, stage 3 July 8:16pm shelter (current) use of anticoagulant s August 07, 2024 8:16pm MVP (mitral valve prolapse) August 07, 8:16pm Overweight (BMI 25.0-29.9) August 07 8:16pm S/P TAVR (transcatheter aortic valve rep lacement) November 14, 2024 8:57am Essential (primary) hypertension 2024 8:57am Hyperlipidemia November 14, 2024 8:57am History of non-ST elevation myocardial infarction (NSTEMI) November 14, 2024 8:57am Chronic kidney disease, stage 3 2024 8:57am shelter (current) use of anticoagulant s November 14, 2024 8:57am MVP (mitral valve prolapse) November 142024 8:57am Chief Complaint Admit Date NEED ORDER October 15, 2024 10 :59am 6 M FU November 14, 2024 8:57am NEEDS ORDER November 25, 2024 11 :28am 2 ORDERING DRS/NEED DR TARANGO ORDER December 03, 2024 12:37pm Referral Order December 04, 2024 1 0:03am Type 2 diabetes mellitus with diabetic n ephropathy December 10, 2024 2:58pm Reason for Visit Admit Date S/P TAVR (transcatheter aortic valve rep lacement) November 14, 2024 8:57am Essential (primary) hypertension 2024 8:57am Hyperlipidemia November 14, 2024 8:57am History of non-ST elevation myocardial infarction (NSTEMI) November 14, 2024 8:57am Chronic kidney disease, stage 3 2024 8:57am shelter (current) use of anticoagulant s November 14, 2024 8:57am MVP (mitral valve prolapse) November 142024 8:57am Health Concerns Infection Onset Date Last Indicated Resolved Time COVID-19 Rule-Out 10/13/2021 10/13/2021 Infection Onset Date Last Indicated Resolved Time COVID-19 Rule-Out 10/13/2021 10/13/2021 10/14/2021 3:44 AM EDT COVID-19 Confirmed 10/13/2021 10/13/2021 Infection Onset Date Last Indicated Resolved Time COVID-19 Confirmed 10/13/2021 10/13/2021 Reason for Referral Specialty Diagnoses / Procedures Referred By Cailinac t Referred To Contact [facility] Diagnoses Hip pain, unspecified laterality Procedures CONSULT TO PHYSICAL THERAPY PHYSICAL THERAPY EVALUATION HIGH COMPLEX 45 MINS Amos Floyd MD [address] [place] [id number] [facility] [address] [address] Referral ID Status Reason Start Date Expiration Date Visits Requested Visits Authorized [id number] Authorized Auto-Generat ed Referral 10/26/2022 02/19/2023 1 1 Specialty Diagnoses / Procedures Referred By Cailinac t Referred To Contact XR IMAGING Diagnoses Hip pain, unspecified laterality Procedures XR HIP BILATERAL 5V PEL/AP/LAT EACH HIP RADEX HIPS BILATERAL WITH PELVIS MINIMUM 5 VIEWS Amos Floyd MD [address] [place] [address] [place] [address] Referral ID Status Reason Start Date Expiration Date V isits Requested Visits Authorized [id number] Closed Auto-Generate d Referral 10/26/2022 11/25/2023 1 1 Specialty Diagnoses / Procedures Referred By Contac t Referred To Contact [facility] Diagnoses Pain of left hip Procedures PT REHAB FOLLOW UP ORDER THERAPEUTIC EXERCISES RE, EA 15 MIN. Pt [facility] [address] [place] [address] [facility] [place] [address] [place] [address] Referral ID Status Reason Start Date Expiration Date Visits Requested Visits Authorized [id number] Pending Review PCP Requested Referral Auto-Generate d Referral 11/01/2022 01/30/2023 1 1 Specialty Diagnoses / Procedures Referred By Contac t Referred To Contact Podiatry Diagnoses Foot pain, right Procedures CONSULT TO PODIATRY OFFICE/OUTPATIENT [facility] MDM 60-74 MINUTES Jacinda Enriquez, [employer]IST [address] [place] [address] Referral ID Status Reason Start Date Expiration Date Visits Requested Visits Authorized [id number] Authorized PCP Requested Referral 11/08/2022 11/08/2023 1 1 Specialty Diagnoses / Procedures Referred By Contac t Referred To Contact XR IMAGING Diagnoses Foot pain, right Procedures XR FOOT GENERAL 3V AP/LAT/OBL RIGHT RADEX FOOT COMPLETE MINIMUM 3 VIEWS Jacinda Enriquez, UNIT A[employer] SPECIALIST [address] [place] [address] [place] [address] Referral ID Status Reason Start Date Expiration Date V isits Requested Visits Authorized [id number] Closed Auto-Generate d Referral 11/08/2022 12/08/2023 1 1 Specialty Diagnoses / Procedures Referred By Contac t Referred To Contact [facility] Diagnoses Physical deconditioning Muscle weakness Gait abnormality Procedures CONSULT TO PHYSICAL THERAPY PHYSICAL THERAPY EVALUATION HIGH COMPLEX 45 MINS Rocio Elizalde, UNIT AID.[employer] SPECIALIST [address] [place] [address] [facility] [place] [address] [place] [address] Referral ID Status Reason Start Date Expiration Date Visits Requested Visits Authorized [id number] Pending Review Auto-Generat ed Referral 05/31/2023 05/30/2024 1 1 Specialty Diagnoses / Procedures Referred By Contac t Referred To Contact CT IMAGING Diagnoses Nodule of lower lobe of right lung Procedures CT CHEST WO IVCON DIAGNOSTIC COMPUTED TOMOGRAPHY THORAX W/O Amos Bill MD [address] [place] [address] [place] [address] Referral ID Status Reason Start Date Expiration Date Visits Requested Visits Authorized [id number] New Request Auto-Generat ed Referral 02/13/2025 1 1 Additional Source Comments INFORMATION SOURCE (unrecogn ized section and content) DATE CREATED AUTHOR 08/15/2017 [facility] DATE CREATED AUTHOR AUTHOR'S ORGANIZ ATION 04/29/2020 [facility] DATE CREATED AUTHOR AUTHOR'S ORGANIZ ATION 05/27/2020 [facility] DATE CREATED AUTHOR AUTHOR'S ORGANIZ ATION 05/25/2023 [facility] DATE CREATED AUTHOR AUTHOR'S ORGANIZ ATION 06/13/2023 [facility] DATE CREATED AUTHOR AUTHOR'S ORGANIZ ATION 09/24/2024 [facility] DATE CREATED AUTHOR AUTHOR'S ORGANIZ ATION 11/03/2024 [facility] DATE CREATED AUTHOR AUTHOR'S ORGANIZ ATION 12/19/2024 [facility] DATE CREATED AUTHOR AUTHOR'S ORGANIZ ATION 12/19/2024 [facility] Goals (unrecognized section and content) Goals may [...] or prosecute any alcohol or drug abuse patient.[facility] HospitalIn the event this information is protected by the Federal Confidentiality of Alcohol and Drug Abuse Patient Records regulations: The Federal rules restrict any use of the information to criminally investigate or prosecute any alcohol or drug abuse patient.[facility] HospitalIn the event this information is protected by the Federal Confidentiality of Alcohol and Drug Abuse Patient Records regulations: The Federal rules restrict any use of the information to criminally investigate or prosecute any alcohol or drug abuse patient.[facility] HospitalIn the event this information is protected by the Federal Confidentiality of Alcohol and Drug Abuse Patient Records regulations: The Federal rules restrict any use of the information to criminally investigate or prosecute any alcohol or drug abuse patient.[facility] HospitalIn the event this information is protected by the Federal Confidentiality of Alcohol and Drug Abuse Patient Records regulations: The Federal rules restrict any use of the information to criminally investigate or prosecute any alcohol or drug abuse patient.[facility] HospitalIn the event this information is protected by the Federal Confidentiality of Alcohol and Drug Abuse Patient Records regulations: The Federal rules restrict any use of the information to criminally investigate or prosecute any alcohol or drug abuse patient.[facility] HospitalIn the event this information is protected by the Federal Confidentiality of Alcohol and Drug Abuse Patient Records regulations: The Federal rules restrict any use of the information to criminally investigate or prosecute any alcohol or drug abuse patient.[facility] HospitalIn the event this information is protected by the Federal Confidentiality of Alcohol and Drug Abuse Patient Records regulations: The Federal rules restrict any use of the information to criminally investigate or prosecute any alcohol or drug abuse patient.[facility] HospitalIn the event this information is protected by the Federal Confidentiality of Alcohol and Drug Abuse Patient Records regulations: The Federal rules restrict any use of the information to criminally investigate or prosecute any alcohol or drug abuse patient.[facility] HospitalIn the event this information is protected by the Federal Confidentiality of Alcohol and Drug Abuse Patient Records regulations: The Federal rules restrict any use of the information to criminally investigate or prosecute any alcohol or drug abuse patient.[facility] HospitalIn the event this information is protected by the Federal Confidentiality of Alcohol and Drug Abuse Patient Records regulations: The Federal rules restrict any use of the information to criminally investigate or prosecute any alcohol or drug abuse patient.[facility] HospitalIn the event this information is protected by the Federal Confidentiality of Alcohol and Drug Abuse Patient Records regulations: The Federal rules restrict any use of the information to criminally investigate or prosecute any alcohol or drug abuse patient.[facility] HospitalIn the event this information is protected by the Federal Confidentiality of Alcohol and Drug Abuse Patient Records regulations: The Federal rules restrict any use of the information to criminally investigate or prosecute any alcohol or drug abuse patient.[facility] HospitalIn the event this information is protected by the Federal Confidentiality of Alcohol and Drug Abuse Patient Records regulations: The Federal rules restrict any use of the information to criminally investigate or prosecute any alcohol or drug abuse patient.[facility] HospitalIn the event this information is protected by the Federal Confidentiality of Alcohol and Drug Abuse Patient Records regulations: The Federal rules restrict any use of the information to criminally investigate or prosecute any alcohol or drug abuse patient.[facility] HospitalIn the event this information is protected by the Federal Confidentiality of Alcohol and Drug Abuse Patient Records regulations: The Federal rules restrict any use of the information to criminally investigate or prosecute any alcohol or drug abuse patient.[facility] HospitalIn the event this information is protected by the Federal Confidentiality of Alcohol and Drug Abuse Patient Records regulations: The Federal rules restrict any use of the information to criminally investigate or prosecute any alcohol or drug abuse patient.[facility] HospitalIn the event this information is protected by the Federal Confidentiality of Alcohol and Drug Abuse Patient Records regulations: The Federal rules restrict any use of the information to criminally investigate or prosecute any alcohol or drug abuse patient.[facility] HospitalIn the event this information is protected by the Federal Confidentiality of Alcohol and Drug Abuse Patient Records regulations: The Federal rules restrict any use of the information to criminally investigate or prosecute any alcohol or drug abuse patient.[facility] HospitalIn the event this information is protected by the Federal Confidentiality of Alcohol and Drug Abuse Patient Records regulations: The Federal rules restrict any use of the information to criminally investigate or prosecute any alcohol or drug abuse patient.[facility] HospitalIn the event this information is protected by the Federal Confidentiality of Alcohol and Drug Abuse Patient Records regulations: The Federal rules restrict any use of the information to criminally investigate or prosecute any alcohol or drug abuse patient.[facility] HospitalIn the event this information is protected by the Federal Confidentiality of Alcohol and Drug Abuse Patient Records regulations: The Federal rules restrict any use of the information to criminally investigate or prosecute any alcohol or drug abuse patient.[facility] HospitalIn the event this information is protected by the Federal Confidentiality of Alcohol and Drug Abuse Patient Records regulations: The Federal rules restrict any use of the information to criminally investigate or prosecute any alcohol or drug abuse patient.[facility] HospitalIn the event this information is protected by the Federal Confidentiality of Alcohol and Drug Abuse Patient Records regulations: The Federal rules restrict any use of the information to criminally investigate or prosecute any alcohol or drug abuse patient.[facility] HospitalIn the event this information is protected by the Federal Confidentiality of Alcohol and Drug Abuse Patient Records regulations: The Federal rules restrict any use of the information to criminally investigate or prosecute any alcohol or drug abuse patient.[facility] HospitalIn the event this information is protected by the Federal Confidentiality of Alcohol and Drug Abuse Patient Records regulations: The Federal rules restrict any use of the information to criminally investigate or prosecute any alcohol or drug abuse patient.[facility] HospitalIn the event this information is protected by the Federal Confidentiality of Alcohol and Drug Abuse Patient Records regulations: The Federal rules restrict any use of the information to criminally investigate or prosecute any alcohol or drug abuse patient.[facility] HospitalIn the event this information is protected by the Federal Confidentiality of Alcohol and Drug Abuse Patient Records regulations: The Federal rules restrict any use of the information to criminally investigate or prosecute any alcohol or drug abuse patient.[facility] HospitalIn the event this information is protected by the Federal Confidentiality of Alcohol and Drug Abuse Patient Records regulations: The Federal rules restrict any use of the information to criminally investigate or prosecute any alcohol or drug abuse patient.[facility] HospitalIn the event this information is protected by the Federal Confidentiality of Alcohol and Drug Abuse Patient Records regulations: The Federal rules restrict any use of the information to criminally investigate or prosecute any alcohol or drug abuse patient.[facility] HospitalIn the event this information is protected by the Federal Confidentiality of Alcohol and Drug Abuse Patient Records regulations: The Federal rules restrict any use of the information to criminally investigate or prosecute any alcohol or drug abuse patient.[facility] HospitalIn the event this information is protected by the Federal Confidentiality of Alcohol and Drug Abuse Patient Records regulations: The Federal rules restrict any use of the information to criminally investigate or prosecute any alcohol or drug abuse patient.[facility] HospitalIn the event this information is protected by the Federal Confidentiality of Alcohol and Drug Abuse Patient Records regulations: The Federal rules restrict any use of the information to criminally investigate or prosecute any alcohol or drug abuse patient.[facility] HospitalIn the event this information is protected by the Federal Confidentiality of Alcohol and Drug Abuse Patient Records regulations: The Federal rules restrict any use of the information to criminally investigate or prosecute any alcohol or drug abuse patient.[facility] HospitalIn the event this information is protected by the Federal Confidentiality of Alcohol and Drug Abuse Patient Records regulations: The Federal rules restrict any use of the information to criminally investigate or prosecute any alcohol or drug abuse patient.[facility] HospitalIn the event this information is protected by the Federal Confidentiality of Alcohol and Drug Abuse Patient Records regulations: The Federal rules restrict any use of the information to criminally investigate or prosecute any alcohol or drug abuse patient.[facility] HospitalIn the event this information is protected by the Federal Confidentiality of Alcohol and Drug Abuse Patient Records regulations: The Federal rules restrict any use of the information to criminally investigate or prosecute any alcohol or drug abuse patient.[facility] HospitalIn the event this information is protected by the Federal Confidentiality of Alcohol and Drug Abuse Patient Records regulations: The Federal rules restrict any use of the information to criminally investigate or prosecute any alcohol or drug abuse patient.[facility] HospitalIn the event this information is protected by the Federal Confidentiality of Alcohol and Drug Abuse Patient Records regulations: The Federal rules restrict any use of the information to criminally investigate or prosecute any alcohol or drug abuse patient.[facility] HospitalIn the event this information is protected by the Federal Confidentiality of Alcohol and Drug Abuse Patient Records regulations: The Federal rules restrict any use of the information to criminally investigate or prosecute any alcohol or drug abuse patient.[facility] HospitalIn the event this information is protected by the Federal Confidentiality of Alcohol and Drug Abuse Patient Records regulations: The Federal rules restrict any use of the information to criminally investigate or prosecute any alcohol or drug abuse patient.[facility] HospitalIn the event this information is protected by the Federal Confidentiality of Alcohol and Drug Abuse Patient Records regulations: The Federal rules restrict any use of the information to criminally investigate or prosecute any alcohol or drug abuse patient.[facility] HospitalIn the event this information is protected by the Federal Confidentiality of Alcohol and Drug Abuse Patient Records regulations: The Federal rules restrict any use of the information to criminally investigate or prosecute any alcohol or drug abuse patient.[facility] HospitalIn the event this information is protected by the Federal Confidentiality of Alcohol and Drug Abuse Patient Records regulations: The Federal rules restrict any use of the information to criminally investigate or prosecute any alcohol or drug abuse patient.[facility] HospitalIn the event this information is protected by the Federal Confidentiality of Alcohol and Drug Abuse Patient Records regulations: The Federal rules restrict any use of the information to criminally investigate or prosecute any alcohol or drug abuse patient.[facility] HospitalIn the event this information is protected by the Federal Confidentiality of Alcohol and Drug Abuse Patient Records regulations: The Federal rules restrict any use of the information to criminally investigate or prosecute any alcohol or drug abuse patient.[facility] HospitalIn the event this information is protected by the Federal Confidentiality of Alcohol and Drug Abuse Patient Records regulations: The Federal rules restrict any use of the information to criminally investigate or prosecute any alcohol or drug abuse patient.[facility] HospitalIn the event this information is protected by the Federal Confidentiality of Alcohol and Drug Abuse Patient Records regulations: The Federal rules restrict any use of the information to criminally investigate or prosecute any alcohol or drug abuse patient.[facility] HospitalIn the event this information is protected by the Federal Confidentiality of Alcohol and Drug Abuse Patient Records regulations: The Federal rules restrict any use of the information to criminally investigate or prosecute any alcohol or drug abuse patient.[facility] HospitalIn the event this information is protected by the Federal Confidentiality of Alcohol and Drug Abuse Patient Records regulations: The Federal rules restrict any use of the information to criminally investigate or prosecute any alcohol or drug abuse patient.[facility] HospitalIn the event this information is protected by the Federal Confidentiality of Alcohol and Drug Abuse Patient Records regulations: The Federal rules restrict any use of the information to criminally investigate or prosecute any alcohol or drug abuse patient.[facility] HospitalIn the event this information is protected by the Federal Confidentiality of Alcohol and Drug Abuse Patient Records regulations: The Federal rules restrict any use of the information to criminally investigate or prosecute any alcohol or drug abuse patient.[facility] HospitalIn the event this information is protected by the Federal Confidentiality of Alcohol and Drug Abuse Patient Records regulations: The Federal rules restrict any use of the information to criminally investigate or prosecute any alcohol or drug abuse patient.[facility] HospitalIn the event this information is protected by the Federal Confidentiality of Alcohol and Drug Abuse Patient Records regulations: The Federal rules restrict any use of the information to criminally investigate or prosecute any alcohol or drug abuse patient.[facility] HospitalIn the event this information is protected by the Federal Confidentiality of Alcohol and Drug Abuse Patient Records regulations: The Federal rules restrict any use of the information to criminally investigate or prosecute any alcohol or drug abuse patient.[facility] HospitalIn the event this information is protected by the Federal Confidentiality of Alcohol and Drug Abuse Patient Records regulations: The Federal rules restrict any use of the information to criminally investigate or prosecute any alcohol or drug abuse patient.[facility] HospitalIn the event this information is protected by the Federal Confidentiality of Alcohol and Drug Abuse Patient Records regulations: The Federal rules restrict any use of the information to criminally investigate or prosecute any alcohol or drug abuse patient.[facility] HospitalIn the event this information is protected by the Federal Confidentiality of Alcohol and Drug Abuse Patient Records regulations: The Federal rules restrict any use of the information to criminally investigate or prosecute any alcohol or drug abuse patient.[facility] HospitalIn the event this information is protected by the Federal Confidentiality of Alcohol and Drug Abuse Patient Records regulations: The Federal rules restrict any use of the information to criminally investigate or prosecute any alcohol or drug abuse patient.[facility] HospitalIn the event this information is protected by the Federal Confidentiality of Alcohol and Drug Abuse Patient Records regulations: The Federal rules restrict any use of the information to criminally investigate or prosecute any alcohol or drug abuse patient.[facility] HospitalIn the event this information is protected by the Federal Confidentiality of Alcohol and Drug Abuse Patient Records regulations: The Federal rules restrict any use of the information to criminally investigate or prosecute any alcohol or drug abuse patient.[facility] HospitalIn the event this information is protected by the Federal Confidentiality of Alcohol and Drug Abuse Patient Records regulations: The Federal rules restrict any use of the information to criminally investigate or prosecute any alcohol or drug abuse patient.[facility] HospitalIn the event this information is protected by the Federal Confidentiality of Alcohol and Drug Abuse Patient Records regulations: The Federal rules restrict any use of the information to criminally investigate or prosecute any alcohol or drug abuse patient.[facility] HospitalIn the event this information is protected by the Federal Confidentiality of Alcohol and Drug Abuse Patient Records regulations: The Federal rules restrict any use of the information to criminally investigate or prosecute any alcohol or drug abuse patient.[facility] HospitalIn the event this information is protected by the Federal Confidentiality of Alcohol and Drug Abuse Patient Records regulations: The Federal rules restrict any use of the information to criminally investigate or prosecute any alcohol or drug abuse patient.[facility] HospitalIn the event this information is protected by the Federal Confidentiality of Alcohol and Drug Abuse Patient Records regulations: The Federal rules restrict any use of the information to criminally investigate or prosecute any alcohol or drug abuse patient.[facility] HospitalIn the event this information is protected by the Federal Confidentiality of Alcohol and Drug Abuse Patient Records regulations: The Federal rules restrict any use of the information to criminally investigate or prosecute any alcohol or drug abuse patient.[facility] HospitalIn the event this information is protected by the Federal Confidentiality of Alcohol and Drug Abuse Patient Records regulations: The Federal rules restrict any use of the information to criminally investigate or prosecute any alcohol or drug abuse patient.[facility] HospitalIn the event this information is protected by the Federal Confidentiality of Alcohol and Drug Abuse Patient Records regulations: The Federal rules restrict any use of the information to criminally investigate or prosecute any alcohol or drug abuse patient.[facility] HospitalIn the event this information is protected by the Federal Confidentiality of Alcohol and Drug Abuse Patient Records regulations: The Federal rules restrict any use of the information to criminally investigate or prosecute any alcohol or drug abuse patient.[facility] HospitalIn the event this information is protected by the Federal Confidentiality of Alcohol and Drug Abuse Patient Records regulations: The Federal rules restrict any use of the information to criminally investigate or prosecute any alcohol or drug abuse patient.[facility] HospitalIn the event this information is protected by the Federal Confidentiality of Alcohol and Drug Abuse Patient Records regulations: The Federal rules restrict any use of the information to criminally investigate or prosecute any alcohol or drug abuse patient.[facility] HospitalIn the event this information is protected by the Federal Confidentiality of Alcohol and Drug Abuse Patient Records regulations: The Federal rules restrict any use of the information to criminally investigate or prosecute any alcohol or drug abuse patient.[facility] HospitalIn the event this information is protected by the Federal Confidentiality of Alcohol and Drug Abuse Patient Records regulations: The Federal rules restrict any use of the information to criminally investigate or prosecute any alcohol or drug abuse patient.[facility] HospitalIn the event this information is protected by the Federal Confidentiality of Alcohol and Drug Abuse Patient Records regulations: The Federal rules restrict any use of the information to criminally investigate or prosecute any alcohol or drug abuse patient.[facility] HospitalIn the event this information is protected by the Federal Confidentiality of Alcohol and Drug Abuse Patient Records regulations: The Federal rules restrict any use of the information to criminally investigate or prosecute any alcohol or drug abuse patient.[facility] HospitalIn the event this information is protected by the Federal Confidentiality of Alcohol and Drug Abuse Patient Records regulations: The Federal rules restrict any use of the information to criminally investigate or prosecute any alcohol or drug abuse patient.[facility] HospitalIn the event this information is protected by the Federal Confidentiality of Alcohol and Drug Abuse Patient Records regulations: The Federal rules restrict any use of the information to criminally investigate or prosecute any alcohol or drug abuse patient.[facility] HospitalIn the event this information is protected by the Federal Confidentiality of Alcohol and Drug Abuse Patient Records regulations: The Federal rules restrict any use of the information to criminally investigate or prosecute any alcohol or drug abuse patient.[facility] HospitalIn the event this information is protected by the Federal Confidentiality of Alcohol and Drug Abuse Patient Records regulations: The Federal rules restrict any use of the information to criminally investigate or prosecute any alcohol or drug abuse patient.[facility] HospitalIn the event this information is protected by the Federal Confidentiality of Alcohol and Drug Abuse Patient Records regulations: The Federal rules restrict any use of the information to criminally investigate or prosecute any alcohol or drug abuse patient.[facility] HospitalIn the event this information is protected by the Federal Confidentiality of Alcohol and Drug Abuse Patient Records regulations: The Federal rules restrict any use of the information to criminally investigate or prosecute any alcohol or drug abuse patient.[facility] HospitalIn the event this information is protected by the Federal Confidentiality of Alcohol and Drug Abuse Patient Records regulations: The Federal rules restrict any use of the information to criminally investigate or prosecute any alcohol or drug abuse patient.[facility] HospitalIn the event this information is protected by the Federal Confidentiality of Alcohol and Drug Abuse Patient Records regulations: The Federal rules restrict any use of the information to criminally investigate or prosecute any alcohol or drug abuse patient.[facility] HospitalIn the event this information is protected by the Federal Confidentiality of Alcohol and Drug Abuse Patient Records regulations: The Federal rules restrict any use of the information to criminally investigate or prosecute any alcohol or drug abuse patient.[facility] HospitalIn the event this information is protected by the Federal Confidentiality of Alcohol and Drug Abuse Patient Records regulations: The Federal rules restrict any use of the information to criminally investigate or prosecute any alcohol or drug abuse patient.[facility] HospitalIn the event this information is protected by the Federal Confidentiality of Alcohol and Drug Abuse Patient Records regulations: The Federal rules restrict any use of the information to criminally investigate or prosecute any alcohol or drug abuse patient.[facility] HospitalIn the event this information is protected by the Federal Confidentiality of Alcohol and Drug Abuse Patient Records regulations: The Federal rules restrict any use of the information to criminally investigate or prosecute any alcohol or drug abuse patient.[facility] HospitalIn the event this information is protected by the Federal Confidentiality of Alcohol and Drug Abuse Patient Records regulations: The Federal rules restrict any use of the information to criminally investigate or prosecute any alcohol or drug abuse patient.[facility] HospitalIn the event this information is protected by the Federal Confidentiality of Alcohol and Drug Abuse Patient Records regulations: The Federal rules restrict any use of the information to criminally investigate or prosecute any alcohol or drug abuse patient.[facility] HospitalIn the event this information is protected by the Federal Confidentiality of Alcohol and Drug Abuse Patient Records regulations: The Federal rules restrict any use of the information to criminally investigate or prosecute any alcohol or drug abuse patient.[facility] HospitalIn the event this information is protected by the Federal Confidentiality of Alcohol and Drug Abuse Patient Records regulations: The Federal rules restrict any use of the information to criminally investigate or prosecute any alcohol or drug abuse patient.[facility] HospitalIn the event this information is protected by the Federal Confidentiality of Alcohol and Drug Abuse Patient Records regulations: The Federal rules restrict any use of the information to criminally investigate or prosecute any alcohol or drug abuse patient.[facility] HospitalIn the event this information is protected by the Federal Confidentiality of Alcohol and Drug Abuse Patient Records regulations: The Federal rules restrict any use of the information to criminally investigate or prosecute any alcohol or drug abuse patient.[facility] HospitalIn the event this information is protected by the Federal Confidentiality of Alcohol and Drug Abuse Patient Records regulations: The Federal rules restrict any use of the information to criminally investigate or prosecute any alcohol or drug abuse patient.[facility] HospitalIn the event this information is protected by the Federal Confidentiality of Alcohol and Drug Abuse Patient Records regulations: The Federal rules restrict any use of the information to criminally investigate or prosecute any alcohol or drug abuse patient.[facility] HospitalIn the event this information is protected by the Federal Confidentiality of Alcohol and Drug Abuse Patient Records regulations: The Federal rules restrict any use of the information to criminally investigate or prosecute any alcohol or drug abuse patient.[facility] HospitalIn the event this information is protected by the Federal Confidentiality of Alcohol and Drug Abuse Patient Records regulations: The Federal rules restrict any use of the information to criminally investigate or prosecute any alcohol or drug abuse patient.[facility] HospitalIn the event this information is protected by the Federal Confidentiality of Alcohol and Drug Abuse Patient Records regulations: The Federal rules restrict any use of the information to criminally investigate or prosecute any alcohol or drug abuse patient.[facility] HospitalIn the event this information is protected by the Federal Confidentiality of Alcohol and Drug Abuse Patient Records regulations: The Federal rules restrict any use of the information to criminally investigate or prosecute any alcohol or drug abuse patient.[facility] HospitalIn the event this information is protected by the Federal Confidentiality of Alcohol and Drug Abuse Patient Records regulations: The Federal rules restrict any use of the information to criminally investigate or prosecute any alcohol or drug abuse patient.[facility] Reason for Visit (unrecogniz ed section and content) Reason Comments PT Discharge Specialty Diagnoses / Procedures Referred By Contac t Referred To Contact [facility] Diagnoses Gait abnormality Hip pain, unspecified laterality Closed displaced fracture of fifth metatarsal bone of right foot with delayed healing, subsequent encounter Procedures CONSULT TO PHYSICAL THERAPY PHYSICAL THERAPY EVALUATION HIGH COMPLEX 45 MINS Amos Floyd MD [address] [place] [address] [facility] [address] [address] Referral ID Status Reason Start Date Expiration Date Visits Requested Visits Authorized [id number] Authorized Auto-Generat ed Referral 02/20/2023 02/20/2024 99 [...] up Reason Comments 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 Date Comments Refill Request 09/19/2022 Reason Onset Date Comments Left Hip Pain Immunizations 10/26/2022 Flu vaccination Reason Comments PT Eval Specialty Diagnoses / Procedures Referred By Contac t Referred To Contact [facility] Diagnoses Hip pain, unspecified laterality Procedures CONSULT TO PHYSICAL THERAPY PHYSICAL THERAPY EVALUATION HIGH COMPLEX 45 MINS Amos Floyd MD [address] [place] [address] [facility] [address] [address] Referral ID Status Reason Start Date Expiration Date V isits Requested Visits Authorized [id number] Closed Auto-Generate d Referral 10/26/2022 02/19/2023 1 1 Reason Comments Pain (foot) Right side of R foot x 2 days Reason Comments Refill Request Reason Comments Established Patient Follow Up Reason Comments Medicare Wellness Exam F/U 6 months Reason Comments PT Eval Reason Comments Patient Update Reason Comments ED Follow-up [facility] Specialty Diagnoses / Procedures Referred By Contac t Referred To Contact Diagnoses Hypercalcemia Addisons Disease Procedures ER OBSERVATION Elisa Mcdonough MD [address] [place] [id number] [address] [place] [address] Referral ID Status Reason Start Date Expiration Date Visits Re quested Visits Authorized [id number] 1 1 Reason Comments Clinical Update Reason [...] vaccination Specialty Diagnoses / Procedures Referred By Cailinac t Referred To Contact CT IMAGING Diagnoses Nodule of lower lobe of right lung Procedures CT CHEST WO IVCON DIAGNOSTIC COMPUTED TOMOGRAPHY THORAX W/O Amos Bill MD [address] [place] [address] [place] [address] Referral ID Status Reason Start Date Expiration Date V isits Requested Visits Authorized [id number] Closed Auto-Generate d Referral 01/15/2024 02/13/2025 1 1 Reason Onset Date Comments Population Health Navigation Outreach 04/05/2024 [employer] High Risk - 1st attempt Reason Onset Date Comments Allied Health Visit 05/14/2024 Medication A dherence Outreach Reason Onset Date Comments Allied Health Visit 06/19/2024 Medication A dherence Outreach Reason Comments Hospital F/U Reason Comments 2 week follow-up Reason Comments New Patient Cardiac Valve Problem Heart valve clinic Reason Comments Patient Question Reason Comments Cardiac Valve Problem Reason Comments Follow Up UTI Specialty Diagnoses / Procedures Referred By Fransico t Referred To Contact Urology Diagnoses Recurrent UTI Procedures CONSULT TO UROLOGY OFFICE/OUTPATIENT NEW HIGH MDM 60 MINUTES Rocio Elizalde, [employer] [address] [place] [address] Phone: tel: fax: Referral ID Status Reason Start Date Expiration Date V isits Requested Visits Authorized [id number] Closed PCP Requested Referral 09/13/2024 09/13/2025 1 1 Reason Comments Consult Reason Comments Follow-up Reason Comments 2 month follow-up Reason Comments Cardiac Valve Problem Hospital Follow-up Reason Onset Date Comments Procedure 10/10/2024 Reason Comments Cardiac Valve Problem Care Teams (unrecognized sec tion and content) Point Of Care Specialist Relationship Specialty Start Date End Date Amos Floyd MD [address] [facility] [place] [address] PCP - General 04/16/04 Point Of Care Specialist Relationship Specialty Start Date End Date Amos Floyd MD [address] [facility] [place] [address] PCP - General 04/16/04 Point Of Care Specialist Relationship Specialty Start Date End Date Amos Floyd MD [facility] [place] [address] PCP - General 04/16/04 Point Of Care Specialist Relationship Specialty Start Date End Date Amos Floyd MD [address] [place] [address], [place] [address] PCP - General 04/16/04 Point Of Care Specialist Relationship Specialty Start Date End Date Amos Floyd MD [facility] [place] [address] PCP - General 04/16/04 Point Of Care Specialist Relationship Specialty Start Date End Date Amos Floyd MD [facility] [place] [address] PCP - General 04/16/04 Point Of Care Specialist Relationship Specialty Start Date End Date Amos Floyd MD [facility] [place] [address] PCP - General 04/16/04 Point Of Care Specialist Relationship Specialty Start Date End Date Amos Floyd MD [facility] [place] [address] PCP - General 04/16/04 Point Of Care Specialist Relationship Specialty Start Date End Date Amos Floyd MD [address] [place] [address], [place] [address] PCP - General 04/16/04 Point Of Care Specialist Relationship Specialty Start Date End Date Amos Floyd MD [address] [facility] [place] [address] PCP - General 04/16/04 Point Of Care Specialist Relationship Specialty Start Date End Date Amos Floyd MD [address] [facility] [place] [address] PCP - General 04/16/04 Point Of Care Specialist Relationship Specialty Start Date End Date Amos Floyd MD [address] [facility] [place] [address] PCP - General 04/16/04 Point Of Care Specialist Relationship Specialty Start Date End Date Amos Floyd MD [address] [facility] [address] PCP - General 04/16/04 Team Status: Active Member Role Status Dates Dr. Amos Floyd MD Family Provider Active Dr. Amos Floyd MD Primary Care Provider Active Team Status: Inactive Member Role Status Dates Dr. Amos Floyd MD Primary Care Provider, Refer ring Provider Active Basim Velasquez PA, PA Attending Provider Active Team [...] Amos Floyd MD Primary Care Provider Active Basim Velasquez PA, PA Attending Provider Active Dr. Torsten Vann [...] Jennifer Tarango DO Attending Provider, Referring P jordan Active Team Status: Inactive Member Role Status Dates Dr. Amos Floyd MD Primary Care Provider Active Dr. Jordan Marte MD Referring Provider Active Basim DISLA, PA Attending Provider Active Point Of Care Specialist Relationship Specialty Start Date End Date Amos Floyd MD [address] [facility] [address] PCP - General 04/16/04 Point Of Care Specialist Relationship Specialty Start Date End Date Amos Floyd MD [address] [facility] [address] PCP - General 04/16/04 Team Status: Inactive Member Role Status Dates Dr. Amos Floyd MD Primary Care Provider Active Dr. Jennifer Tarango DO Attending Provider Active Dr. Benjamin Gregory MD Other Provider Active Dr. Jordan Marte MD Other Provider Active Team Status: Inactive Member Role Status Dates Dr. Amos Floyd MD Primary Care Provider Active Dr. Jordan Marte MD Other Provider Active Basim Velasquez PA, PA Attending Provider, Referr ing Provider Active Point Of Care Specialist Relationship Specialty Start Date End Date Amos Floyd MD [address] [facility] [address] PCP - General 04/16/04 Point Of Care Specialist Relationship Specialty Start Date End Date Amos Floyd MD [address] [facility] [address] PCP - General 04/16/04 Point Of Care Specialist Relationship Specialty Start Date End Date Amos Floyd MD [address] [place] [address] PCP - General 04/16/04 Point Of Care Specialist Relationship Specialty Start Date End Date Amos Floyd MD [address] [place] [address] PCP - General 04/16/04 Point Of Care Specialist Relationship Specialty Start Date End Date Amos Floyd MD [address] [place] [address] PCP - General 04/16/04 Team Status: Inactive Member Role Status Dates Dr. Amos Floyd MD Primary Care Provider Active Dr. Jordan Marte MD Other Provider Active Basim Velasquez PA, PA Attending Provider, Referr ing Provider Active Dr. Torsten Vann MD Other Provider Active Dr. Jennifer Tarango DO Other Provider Active Point Of Care Specialist Relationship Specialty Start Date End Date Amos Floyd MD [address] [place] [address] PCP - General 04/16/04 Point Of Care Specialist Relationship Specialty Start Date End Date Amos Floyd MD [address] [place] [address] PCP - General 04/16/04 Point Of Care Specialist Relationship Specialty Start Date End Date Amos Floyd MD [address] [place] [address] PCP - General 04/16/04 Team Status: Inactive Member Role Status Dates Dr. Amos Floyd MD Primary Care Provider, Refer ring Provider Active Ryan Ji PICK UP, PICK UP-C Attending Provider Active Point Of Care Specialist Relationship Specialty Start Date End Date Amos Floyd MD [address] [facility] [address] PCP - General 04/16/04 Point Of Care Specialist Relationship Specialty Start Date End Date Amos Floyd MD [address] [facility] [address] PCP - General 04/16/04 Team Status: Active Member Role Status Dates Dr. Amos Floyd MD Primary Care Provider Active Dr. Jordan Marte MD Other Provider Active Basim Velasquez PA, PA Attending Provider, Referr ing Provider Active Dr. Torsten Vann MD Other Provider Active Dr. Jennifer Tarango DO Other Provider Active Team Status: Active Member Role Status Dates Dr. Amos Floyd MD Primary Care Provider Active Dr. Jordan Marte MD Attending Provider Active Team Status: Inactive Member Role Status Dates Dr. Amos Floyd MD Primary Care Provider Active Ryan Ji PICK UP, PICK UP-C Attending Provider, Referring Pro vider Active Point Of Care Specialist Relationship Specialty Start Date End Date Amos Floyd MD [address] [place] [address] PCP - General 04/16/04 Team Status: Inactive Member Role Status Dates Dr. Amos Floyd MD Primary Care Provider Active Dr. Juan Alberto Mcclendon MD Emergency Provider Active Point Of Care Specialist Relationship Specialty Start Date End Date Amos Floyd MD [address] [facility] [address] PCP - General 04/16/04 Point Of Care Specialist Relationship Specialty Start Date End Date Amos Floyd MD [address] [facility] [address] PCP - General 04/16/04 Point Of Care Specialist Relationship Specialty Start Date End Date Amos Floyd MD [address] [facility] [address] PCP - General 04/16/04 Team Status: Inactive Member Role Status Dates Dr. Amos Floyd MD Primary Care Provider Active Dr. Juan Alberto Mcclendon MD Attending Provider, Emergency Provider Active Team Status: Inactive Member Role Status Dates Dr. Amos Floyd MD Primary Care Provider Active Dr. Ankush Noguera DO Emergency Provider Active Point Of Care Specialist Relationship Specialty Start Date End Date Amos Floyd MD [address] [facility] [address] PCP - General 04/16/04 Point Of Care Specialist Relationship Specialty Start Date End Date Amos Floyd MD [address] [place] [address] PCP - General 04/16/04 Point Of Care Specialist Relationship Specialty Start Date End Date Amos Floyd MD [address] [place] [address] PCP - General 05/01/20 Team Status: Inactive Member Role Status Dates Dr. Amos Floyd MD Primary Care Provider Active Dr. Ankush Noguera DO Attending Provider, Emergency Provider Active Team Status: Inactive Member Role Status Dates Dr. Amos Floyd MD Primary Care Provider Active Rocio PICK UP, Fide Attending Provider, Referring Prov ider Active Point Of Care Specialist Relationship Specialty Start Date End Date Amos Floyd MD [address] [place] [address] PCP - General 04/16/04 Point Of Care Specialist Relationship Specialty Start Date End Date Amos Floyd MD [address] [place], [place] [address] PCP - General 04/16/04 Point Of Care Specialist Relationship Specialty Start Date End Date Amos Floyd MD [address] [place] [address] PCP - General 04/16/04 Point Of Care Specialist Relationship Specialty Start Date End Date Amos Floyd MD [address] [place] [address] PCP - General 04/16/04 Point Of Care Specialist Relationship Specialty Start Date End Date Amos Floyd MD [address] [place] [address] PCP - General 04/16/04 Point Of Care Specialist Relationship Specialty Start Date End Date Amos Floyd MD [address] [place] [address] PCP - General 04/16/04 Point Of Care Specialist Relationship Specialty Start Date End Date Amos Floyd MD [address] [place] [address] PCP - General 04/16/04 Point Of Care Specialist Relationship Specialty Start Date End Date Amos Floyd MD [address] [place] [address] PCP - General 04/16/04 Point Of Care Specialist Relationship Specialty Start Date End Date Amos Floyd MD [address] [place] [address] PCP - General 04/16/04 Point Of Care Specialist Relationship Specialty Start Date End Date Amos Floyd MD [address] [place] [address] PCP - General 04/16/04 Point Of Care Specialist Relationship Specialty Start Date End Date Amos Floyd MD [address] [place] [address] PCP - General 04/16/04 Point Of Care Specialist Relationship Specialty Start Date End Date Amos Floyd MD [address] [place] [address] PCP - General 04/16/04 Point Of Care Specialist Relationship Specialty Start Date End Date Amos Floyd MD [address] [place] [address] PCP - General 04/16/04 Point Of Care Specialist Relationship Specialty Start Date End Date Amos Floyd MD [address] [place] [address] PCP - General 04/16/04 Point Of Care Specialist Relationship Specialty Start Date End Date Amos Floyd MD [address] [place] [address] PCP - General 04/16/04 Point Of Care Specialist Relationship Specialty Start Date End Date Amos Floyd MD [address] [place] [address] PCP - General 04/16/04 Rocio Elizalde, UNIT AID.AIRWAYS CONTROL SPECIALIST [address] [place] [address] Fast Brim Pouncer Internal Medicine 01/29/24 Point Of Care Specialist Relationship Specialty Start Date End Date Amos Floyd MD [address] [place] [address] PCP - General 04/16/04 Rocio Elizalde, UNIT AID[employer]AIR[employer] CONTROL SPECIALIST [address] [place] [address] Fast Brim Pouncer Internal Medicine 01/29/24 Point Of Care Specialist Relationship Specialty Start Date End Date Amos Floyd MD [address] [place] [address] PCP - General 04/16/04 Rocio Elizalde, UNIT AID[employer]AIR[employer] CONTROL SPECIALIST [address] [place] [address] Fast Brim Pouncer Internal Medicine 01/29/24 Point Of Care Specialist Relationship Specialty Start Date End Date Amos Floyd MD [address] [place] [address] PCP - General 04/16/04 Rocio Elizalde, UNIT AID.AIR[employer] CONTROL SPECIALIST [address] [place] [address] Fast Brim Pouncer Internal Medicine 01/29/24 Team Status: Active Member Role Status Dates Dr. Amos Floyd MD Primary Care Provider Active Team Status: Inactive Member Role Status Dates Dr. Amos Floyd MD Primary Care Provider Active Start: March 21, 2024 End: March 22, 2024 Dr. Jordan Marte MD Other Provider Active Start : March 21, 2024 End: March 22, 2024 Basim DISLA PA Attending Provider Active Start: March 21, 2024 End: March 22, 2024 Basim DISLA PA Referring Provider Active Start: March [...] April 26, 2024 End: April 26, 2024 Basim Velasquez PA, PA Attending Provider Active Start: April 26, 2024 End: April 26, 2024 Basim Velasquez PA, PA Referring Provider Active Start: April 26, 2024 End: April 26, 2024 Dr. Torsten Vann MD Other Provider Active Start: April 26, 2024 End: April 26, 2024 Dr. Jennifer Tarango DO Other Provider Active Sta rt: April 26, 2024 End: April 26, 2024 Team Status: Inactive Member Role Status Dates Dr. Amos Floyd MD Primary Care Provider Active Start: April 29, 2024 End: April 29, 2024 Dr. Amos Folyd MD Referring Provider Active Start: April 29, 2024 End: April 29, 2024 NIGHAT Burns Attending Provider Active St art: April 29, 2024 End: April 29, 2024 Team Status: Active Member Role Status Dates Dr. Amos Floyd MD Primary Care Provider Active Start: May 24, 2024 Dr. Jordan Marte MD Other Provider Active Start : May 24, 2024 Basim Velasquez PA, PA Attending Provider Active Start: May 24, 2024 Basim Velasquez PA, PA Referring Provider Active Start: [...] Provider Active S tart: May 24, 2024 Point Of Care Specialist Relationship Specialty Start Date End Date Amos Floyd MD [address] [place], [place] [address] PCP - General 04/16/04 Rocio Elizalde, UNIT AID[employer] CONTROL SPECIALIST [address] [place], [place] [address] Fast Brim Pouncer Internal Medicine 01/29/24 Team Status: Inactive Member Role Status Dates Dr. Amos Floyd MD Primary Care Provider Active Start: May 24, 2024 End: June 19, 2024 Dr. Jordan Marte MD Other Provider Active Start : May 24, 2024 End: June 19, 2024 Basim DISLA, PA Attending Provider Active Start: May 24, 2024 End: June 19, 2024 Basim DISLA, PA Referring Provider Active Start: May 24, 2024 End: June 19, 2024 Dr. Torsten Vann MD Other Provider Active Start: May 24, 2024 End: June 19, 2024 Dr. Jennifer Tarango DO Other Provider Active Sta rt: May 24, 2024 End: June 19, 2024 Team Status: Active Member Role Status Dates Dr. Amos Floyd MD Primary Care Provider Active Start: June 21, 2024 Dr. Jordan Marte MD Other Provider Active Start : June 21, 2024 Basim Velasquez PA, PA Attending Provider Active Start: June 21, 2024 Basim Velasquez PA, PA Referring Provider Active Start: [...] June 21, 2024 End: June 21, 2024 Basim DISLA PA Attending Provider Active Start: June 21, 2024 End: June 21, 2024 Basim DISLA, PA Referring Provider Active Start: June 21, [...] 2024 End: July 23, 2024 Heaven Bolton PICK UP, PICK UP-C Attending Provider Active Start: July 23, 2024 End: July 23, 2024 Point Of Care Specialist Relationship Specialty Start Date End Date Amos Floyd MD [address] [place] [address] PCP - General 04/16/04 Rocio Elizalde, UNIT AID[employer] CONTROL SPECIALIST [address] [place] [address] Fast Brim Pouncer Internal Medicine 01/29/24 Team Status: Inactive Member [...] Active Sta rt: August 07, 2024 Dr. Nixon Silverio DO Admit Provider Active Start: August 07, 2024 Dr. Nixon Silverio DO Attending Provider Active Start: August 07, 2024 Dr. Nixon Silverio DO Referring Provider Active Start: August 07, 2024 Team Status: Inactive Member Role Status Dates Dr. Amos Floyd MD Primary Care Provider Active Start: August 07, 2024 End: August 09, 2024 Dr. Obinna Frye MD Emergency Provider Active Sta rt: August 07, 2024 End: August 09, 2024 Dr. Nixon Silverio DO Admit Provider Active Start: August 07, 2024 End: August 09, 2024 Dr. Nixon Silverio DO Referring Provider Active Start: August 07, 2024 End: August 09, 2024 Dr. Nixon Silverio DO Other Provider Active Start: August 07, 2024 End: August 09, 2024 Dr. Jairo Mitchell DO Attending Provider Active Start: August 07, 2024 End: August 09, 2024 Dr. Ted Toro MD Other Provider Active Start: August 07, 2024 End: August 09, 2024 Team Status: Active Member Role Status Dates Dr. Amos Floyd MD Primary Care Provider Active Start: August 08, 2024 Dr. Obinna Frye MD Emergency Provider Active Sta rt: August 08, 2024 Dr. Nixon Silverio DO Admit Provider Active Start: August 08, 2024 Dr. Nixon Silverio DO Referring Provider Active Start: August 08, 2024 Dr. Nixon Silverio DO Other Provider Active Start: August 08, 2024 Dr. Ted Toro MD Attending Provider Active Start: August 08, 2024 Dr. Ted Toro MD Other Provider Active Start: August 08, 2024 Team Status: Active Member Role Status Dates Dr. Amos Floyd MD Primary Care Provider Active Start: August 09, 2024 Dr. Obinna Frye MD Emergency Provider Active Sta rt: August 09, 2024 Dr. Nixon Silverio DO Admit Provider Active Start: August 09, 2024 Dr. Nixon Silverio DO Referring Provider Active Start: August 09, 2024 Dr. Nixon Silverio DO Other Provider Active Start: August 09, 2024 Dr. Jairo Mitchell DO Attending Provider Active Start: August 09, 2024 Dr. Jairo Mitchell DO Other Provider Active Star t: August 09, 2024 Dr. Ted Toro MD Other Provider Active Start: August 09, 2024 Point Of Care Specialist Relationship Specialty Start Date End Date Amos Floyd MD [address] [place] [address] PCP - General 04/16/04 Rocio Elizalde, UNIT AID[employer] CONTROL SPECIALIST [address] [place] [address] Fast Brim Pouncer Internal Medicine 01/29/24 Annemarie Read, pattern developer Posting Clerk Pulmonary Disease 08/15/24 Point Of Care Specialist Relationship Specialty Start Date End Date Amos Floyd MD [address] [place], [place] [address] PCP - General 04/16/04 Rocio Elizalde, UNIT AID[employer] CONTROL SPECIALIST [address] [place] [address] Fast Brim Pouncer Internal Medicine 01/29/24 Annemarie Read RN Primary Care Posting Clerk Pulmonary Disease 08/15/24 Point Of Care Specialist Relationship Specialty Start Date End Date Amos Floyd MD [address] [place] [address] PCP - General 04/16/04 Rocio Elizalde, UNIT AID[employer] CONTROL SPECIALIST [address] [place] [address] Fast Brim Pouncer Internal Medicine 01/29/24 Annemarie Read RN Primary Care Posting Clerk Pulmonary Disease 08/15/24 Point Of Care Specialist Relationship Specialty Start Date End Date Amos Floyd MD [address] [facility] [place] [address] PCP - General 04/16/04 Rocio Elizalde, UNIT AID[employer] CONTROL SPECIALIST [address] [place] [address] Fast Brim Pouncer Internal Medicine 01/29/24 Annemarie Read RN Primary Care Posting Clerk Pulmonary Disease 08/15/24 Point Of Care Specialist Relationship Specialty Start Date End Date Amos Floyd MD [address] [facility] [place] [address] PCP - General 04/16/04 Rocio Elizalde, UNIT AID[employer]AIR[employer] CONTROL SPECIALIST [address] [place] [address] Fast Brim Pouncer Internal Medicine 01/29/24 Annemarie Read RN Primary Care Posting Clerk Pulmonary Disease 08/15/24 Point Of Care Specialist Relationship Specialty Start Date End Date Amos Floyd [address] [place] [address] PCP - General Internal Medicine 09/03/24 Point Of Care Specialist Relationship Specialty Start Date End Date Mariel Amos Gaitan [address] [place] [address] PCP - General Internal Medicine 09/03/24 Team Status: Active Member Role/Relationship Status Dates Dr. Aoms Floyd MD Primary Care Provider Active Team Status: Inactive Member Role/Relationship Status Dates Dr. Amos Floyd MD Primary Care Provider Active Start: May 24, 2024 End: June 19, 2024 Dr. Jordan Marte MD Other Provider Active Start : May 24, 2024 End: June 19, 2024 Basim DISLA PA Attending Provider Active Start: May 24, 2024 End: June 19, 2024 Basim DISLA PA Referring Provider Active Start: May 24, 2024 End: June 19, 2024 Dr. Torsten Vann MD Other Provider Active Start: May 24, 2024 End: June 19, 2024 Dr. Jennifer Tarango DO Other Provider Active Sta rt: May 24, 2024 End: June 19, 2024 Team Status: Inactive Member Role/Relationship Status Dates Dr. Amos Floyd MD Primary Care Provider Active Start: May 24, 2024 End: May 24, 2024 NIGHAT Burns Attending Provider Active St art: May 24, 2024 End: May 24, 2024 NIGHAT Burns Referring Provider Active St art: May 24, 2024 End: May 24, 2024 Team Status: Active Member Role/Relationship Status Dates Dr. Amos Floyd MD Primary Care Provider Active Start: May 24, 2024 Dr. Jordan Marte MD Attending Provider Active S tart: May 24, 2024 Team Status: Inactive Member Role/Relationship Status Dates Dr. Amos Floyd MD Primary Care Provider Active Start: June 21, 2024 End: June 21, 2024 Dr. Jordan Marte MD Other Provider Active Start : June 21, 2024 End: June 21, 2024 Basim Velasquez PA, PA Attending Provider Active Start: June 21, 2024 End: June 21, 2024 Basim Velasquez PA, PA Referring Provider Active Start: June 21, 2024 End: June 21, 2024 Dr. Torsten Vann MD Other Provider Active Start: June 21, 2024 End: June 21, 2024 Dr. Jennifer Tarango DO Other Provider Active Sta rt: June 21, 2024 End: June 21, 2024 Team Status: Inactive Member Role/Relationship Status Dates Dr. Amos Floyd MD Primary Care Provider Active Start: July 03, 2024 End: July 03, 2024 NIGHAT Burns Attending Provider Active St art: July 03, 2024 End: July 03, 2024 NIGHAT Burns Referring Provider Active St art: July 03, 2024 End: July 03, 2024 Team Status: Active Member Role/Relationship Status Dates Dr. Amos Floyd MD Primary Care Provider Active Start: July 03, 2024 Dr. Jordan Marte MD Attending Provider Active S tart: July 03, 2024 Team Status: Inactive Member Role/Relationship Status Dates Dr. Amos Floyd MD Primary Care Provider Active Start: July 23, 2024 End: July 23, 2024 Dr. Amos Floyd MD Referring Provider Active Start: July 23, 2024 End: July 23, 2024 Heaven Bolton PICK UP, PICK UP-C Attending Provider Active Start: July 23, 2024 End: July 23, 2024 Team Status: Inactive Member Role/Relationship Status Dates Dr. Amos Floyd MD Primary Care Provider Active Start: August 05, 2024 End: August 05, 2024 Dr. Jordan Marte MD Attending Provider Active S tart: August 05, 2024 End: August 05, 2024 Dr. Jordan Marte MD Referring Provider Active S tart: August 05, 2024 End: August 05, 2024 Team Status: Inactive Member Role/Relationship Status Dates Dr. Amos Floyd MD Primary Care Provider Active Start: August 07, 2024 End: August 09, 2024 Dr. Obinna Frye MD Emergency Provider Active Sta rt: August 07, 2024 End: August 09, 2024 Dr. Nixon Silverio DO Admit Provider Active Start: August 07, 2024 End: August 09, 2024 Dr. Nixon Silverio DO Referring Provider Active Start: August 07, 2024 End: August 09, 2024 Dr. Nixon Silverio DO Other Provider Active Start: August 07, 2024 End: August 09, 2024 Dr. Jairo Mitchell DO Attending Provider Active Start: August 07, 2024 End: August 09, 2024 Dr. Ted Toro MD Other Provider Active Start: August 07, 2024 End: August 09, 2024 Team Status: Active Member Role/Relationship Status Dates Dr. Amos Floyd MD Primary Care Provider Active Start: August 08, 2024 Dr. Obinna Frye MD Emergency Provider Active Sta rt: August 08, 2024 Dr. Nixon Silverio DO Admit Provider Active Start: August 08, 2024 Dr. Nixon Silverio DO Other Provider Active Start: August 08, 2024 Dr. Ted Toro MD Attending Provider Active Start: August 08, 2024 Dr. Ted Toro MD Other Provider Active Start: August 08, 2024 Team Status: Active Member Role/Relationship Status Dates Dr. Scotty Barone MD Attending Provider Active Start: August 09, 2024 Dr. Ted Toro MD Referring Provider Active Start: August 09, 2024 Team Status: Active Member Role/Relationship Status Dates Dr. Amos Floyd MD Primary Care Provider Active Start: August 09, 2024 Dr. Obinna Frye MD Emergency Provider Active Sta rt: August 09, 2024 Dr. Nixon Silverio DO Admit Provider Active Start: August 09, 2024 Dr. Nixon Silverio DO Other Provider Active Start: August 09, 2024 Dr. Jairo Mitchell DO Attending Provider Active Start: August 09, 2024 Dr. Jairo Mitchell DO Other Provider Active Star t: August 09, 2024 Dr. Ted Toro MD Other Provider Active Start: August 09, 2024 Team Status: Inactive Member Role/Relationship Status Dates SAM HAMPTON Attending Provider Active St art: September 10, 2024 End: September 10, 2024 SAM HAMPTON Referring Provider Active St art: September 10, 2024 End: September 10, 2024 Dr. Amos Floyd MD Primary Care Provider Active Start: September 10, 2024 End: September 10, 2024 Point Of Care Specialist Relationship Specialty Start Date End Date Amos Floyd MD [address] [place] [address] PCP - General 04/16/04 Rocio Elizalde, UNIT A[employer] CONTROL SPECIALIST [address] [place], [place] [address] Fast Brim Pouncer Internal Medicine 01/29/24 Point Of Care Specialist Relationship Specialty Start Date End Date Amos Floyd [address] [place] [address] PCP - General Internal Medicine 09/03/24 Point Of Care Specialist Relationship Specialty Start Date End Date Amos Floyd [address] [place] [address] PCP - General Internal Medicine 09/03/24 Point Of Care Specialist Relationship Specialty Start Date End Date Amos Floyd MD [address] [place] [address] PCP - General 04/16/04 Rocio Elizalde, UNIT AID.A[employer] CONTROL SPECIALIST [address] [place], [place] [address] Fast Brim Pouncer Internal Medicine 01/29/24 Point Of Care Specialist Relationship Specialty Start Date End Date Amos Floyd [address] [place] [address] PCP - General Internal Medicine 09/03/24 Point Of Care Specialist Relationship Specialty Start Date End Date Amos Floyd [address] [facility] [place] [address] PCP - General Internal Medicine 09/03/24 Point Of Care Specialist Relationship Specialty Start Date End Date Amos Floyd [address] [facility] [place] [address] PCP - General Internal Medicine 09/03/24 Team Status: Inactive Member Role/Relationship Status Dates Dr. Amos Floyd MD Primary Care Provider Active Start: June 21, 2024 End: June 21, 2024 Dr. Jordan Marte MD Other Provider Active Start : June 21, 2024 End: June 21, 2024 Basim DISLA PA Attending Provider Active Start: June 21, 2024 End: June 21, 2024 NIGHAT Randle Referring Provider Active Start: June 21, 2024 End: June 21, 2024 Dr. Torsten Vann MD Other Provider Active Start: June 21, 2024 End: June 21, 2024 Dr. Jennifer Tarango DO Other Provider Active Sta rt: June 21, 2024 End: June 21, 2024 Team Status: Inactive Member Role/Relationship Status Dates Dr. Amos Floyd MD Primary Care Provider Active Start: July 03, 2024 End: July 03, 2024 NIGHAT Burns Attending Provider Active St art: July 03, 2024 End: July 03, 2024 NIGHAT Burns Referring Provider Active St art: July 03, 2024 End: July 03, 2024 Team Status: Active Member Role/Relationship Status Dates Dr. Amos Floyd MD Primary Care Provider Active Start: July 03, 2024 Dr. Jordan Marte MD Attending Provider Active S tart: July 03, 2024 Team Status: Inactive Member Role/Relationship Status Dates Dr. Amos Floyd MD Primary Care Provider Active Start: July 23, 2024 End: July 23, 2024 Dr. Amos Floyd MD Referring Provider Active Start: July 23, 2024 End: July 23, 2024 Heaven Bolton NP, PICK UP-C Attending Provider Active Start: July 23, 2024 End: July 23, 2024 Team Status: Inactive Member Role/Relationship Status Dates Dr. Amos Floyd MD Primary Care Provider Active Start: August 05, 2024 End: August 05, 2024 Dr. Jordan Marte MD Attending Provider Active S tart: August 05, 2024 End: August 05, 2024 Dr. Jordan Marte MD Referring Provider Active S tart: August 05, 2024 End: August 05, 2024 Team Status: Inactive Member Role/Relationship Status Dates Dr. Amos Floyd MD Primary Care Provider Active Start: August 07, 2024 End: August 09, 2024 Dr. Obinna Frye MD Emergency Provider Active Sta rt: August 07, 2024 End: August 09, 2024 Dr. Nixon Silverio DO Admit Provider Active Start: August 07, 2024 End: August 09, 2024 Dr. Nixon Silverio DO Referring Provider Active Start: August 07, 2024 End: August 09, 2024 Dr. Nixon Silverio DO Other Provider Active Start: August 07, 2024 End: August 09, 2024 Dr. Jairo Mitchell DO Attending Provider Active Start: August 07, 2024 End: August 09, 2024 Dr. Ted Toro MD Other Provider Active Start: August 07, 2024 End: August 09, 2024 Team Status: Active Member Role/Relationship Status Dates Dr. Amos Floyd MD Primary Care Provider Active Start: August 08, 2024 Dr. Obinna Frye MD Emergency Provider Active Sta rt: August 08, 2024 Dr. Nixon Silverio DO Admit Provider Active Start: August 08, 2024 Dr. Nixon Silverio DO Other Provider Active Start: August 08, 2024 Dr. Ted Toro MD Attending Provider Active Start: August 08, 2024 Dr. Ted Toro MD Other Provider Active Start: August 08, 2024 Team Status: Active Member Role/Relationship Status Dates Dr. Scotty Barone MD Attending Provider Active Start: August 09, 2024 Dr. Ted Toro MD Referring Provider Active Start: August 09, 2024 Team Status: Active Member Role/Relationship Status Dates Dr. Amos Floyd MD Primary Care Provider Active Start: August 09, 2024 Dr. Obinna Frye MD Emergency Provider Active Sta rt: August 09, 2024 Dr. Nixon Silverio DO Admit Provider Active Start: August 09, 2024 Dr. Nixon Silverio , Other Provider Active Start: August 09, 2024 Dr. Jairo Mitchell DO Attending Provider Active Start: August 09, 2024 Dr. Jairo Mitchell DO Other Provider Active Star t: August 09, 2024 Dr. Ted Toro MD Other Provider Active Start: August 09, 2024 Team Status: Inactive Member Role/Relationship Status Dates SAM HAMPTON Attending Provider Active St art: September 10, 2024 End: September 10, 2024 SAM HAMPTON Referring Provider Active St art: September 10, 2024 End: September 10, 2024 Dr. Amos Floyd MD Primary Care Provider Active Start: September 10, 2024 End: September 10, 2024 Team Status: Inactive Member Role/Relationship Status Dates Dr. Amos Floyd MD Primary Care Provider Active Start: October 03, 2024 End: October 03, 2024 CARRIE Marie Attending Provider Active Start: October 03, 2024 End: October 03, 2024 CARRIE Marie Referring Provider Active Start: October 03, 2024 End: October 03, 2024 Point Of Care Specialist Relationship Specialty Start Date End Date Amos Floyd [address] [place], [place] [address] PCP - General Internal Medicine 09/03/24 Point Of Care Specialist Relationship Specialty Start Date End Date Amos Floyd [address] [place] [address] PCP - General Internal Medicine 09/03/24 Point Of Care Specialist Relationship Specialty Start Date End Date Amos Floyd [address] [place] [address] PCP - General Internal Medicine 09/03/24 Team Status: Inactive Member Role/Relationship Status Dates Dr. Amos Floyd MD Primary Care Provider Active Start: July 03, 2024 End: July 03, 2024 NIGHAT Burns Attending Provider Active St art: July 03, 2024 End: July 03, 2024 NIGHAT Burns Referring Provider Active St art: July 03, 2024 End: July 03, 2024 Team Status: Active Member Role/Relationship Status Dates Dr. Amos Floyd MD Primary Care Provider Active Start: July 03, 2024 Dr. Jordan Marte MD Attending Provider Active S tart: July 03, 2024 Team Status: Inactive Member Role/Relationship Status Dates Dr. Amos Floyd MD Primary Care Provider Active Start: July 23, 2024 End: July 23, 2024 Dr. Amos Floyd MD Referring Provider Active Start: July 23, 2024 End: July 23, 2024 Heaven Bolton PICK UP, PICK UP-C Attending Provider Active Start: July 23, 2024 End: July 23, 2024 Team Status: Inactive Member Role/Relationship Status Dates Dr. Amos Floyd MD Primary Care Provider Active Start: August 05, 2024 End: August 05, 2024 Dr. Jordan Marte MD Attending Provider Active S tart: August 05, 2024 End: August 05, 2024 Dr. Jordan Marte MD Referring Provider Active S tart: August 05, 2024 End: August 05, 2024 Team Status: Inactive Member Role/Relationship Status Dates Dr. Amos Floyd MD Primary Care Provider Active Start: August 07, 2024 End: August 09, 2024 Dr. Obinna Frye MD Emergency Provider Active Sta rt: August 07, 2024 End: August 09, 2024 Dr. Nixon Silverio DO Admit Provider Active Start: August 07, 2024 End: August 09, 2024 Dr. Nixon Silverio DO Referring Provider Active Start: August 07, 2024 End: August 09, 2024 Dr. Nixon Silverio DO Other Provider Active Start: August 07, 2024 End: August 09, 2024 Dr. Jairo Mitchell DO Attending Provider Active Start: August 07, 2024 End: August 09, 2024 Dr. Ted Toro MD Other Provider Active Start: August 07, 2024 End: August 09, 2024 Team Status: Active Member Role/Relationship Status Dates Dr. Amos Floyd MD Primary Care Provider Active Start: August 08, 2024 Dr. Obinna Frye MD Emergency Provider Active Sta rt: August 08, 2024 Dr. Nixon Silverio DO Admit Provider Active Start: August 08, 2024 Dr. Nixon Silverio DO Other Provider Active Start: August 08, 2024 Dr. Ted Toro MD Attending Provider Active Start: August 08, 2024 Dr. Ted Toro MD Other Provider Active Start: August 08, 2024 Team Status: Active Member Role/Relationship Status Dates Dr. Scotty Barone MD Attending Provider Active Start: August 09, 2024 Dr. Ted Toro MD Referring Provider Active Start: August 09, 2024 Team Status: Active Member Role/Relationship Status Dates Dr. Amos Floyd MD Primary Care Provider Active Start: August 09, 2024 Dr. Obinna Frye MD Emergency Provider Active Sta rt: August 09, 2024 Dr. Nixon Silverio DO Admit Provider Active Start: August 09, 2024 Dr. Nixon iSlverio DO Other Provider Active Start: August 09, 2024 Dr. Jairo Mitchell DO Attending Provider Active Start: August 09, 2024 Dr. Jairo Mitchell DO Other Provider Active Star t: August 09, 2024 Dr. Ted Toro MD Other Provider Active Start: August 09, 2024 Team Status: Inactive Member Role/Relationship Status Dates SAM HAMPTON Attending Provider Active St art: September 10, 2024 End: September 10, 2024 SAM HAMPTON Referring Provider Active St art: September 10, 2024 End: September 10, 2024 Dr. Amos Floyd MD Primary Care Provider Active Start: September 10, 2024 End: September 10, 2024 Team Status: Inactive Member Role/Relationship Status Dates Dr. Amos Floyd MD Primary Care Provider Active Start: October 03, 2024 End: October 03, 2024 CARRIE Marie Attending Provider Active Start: October 03, 2024 End: October 03, 2024 CARRIE Marie Referring Provider Active Start: October 03, 2024 End: October 03, 2024 Team Status: Inactive Member Role/Relationship Status Dates SAM HAMPTON Attending Provider Active St art: October 15, 2024 End: October 15, 2024 SAM HAMPTON Referring Provider Active St art: October 15, 2024 End: October 15, 2024 Dr. Amos Floyd MD Primary Care Provider Active Start: October 15, 2024 End: October 15, 2024 Point Of Care Specialist Relationship Specialty Start Date End Date Amos Floyd [address] [place] [address] PCP - General Internal Medicine 09/03/24 Point Of Care Specialist Relationship Specialty Start Date End Date Amos Floyd [address] [place], [place] [id number] PCP - General Internal Medicine 09/03/24 Point Of Care Specialist Relationship Specialty Start Date End Date Amos Floyd MD [address] [place], [place] [id number] PCP - General 04/16/04 Rocio Elizalde, [employer] SPECIALIST [address] [place] [address] [employer]cer Internal Medicine 01/29/24 Point Of Care Specialist Relationship Specialty Start Date End Date Amos Floyd [address] [place], [place] [address] PCP - General Internal Medicine 09/03/24 Point Of Care Specialist Relationship Specialty Start Date End Date Amos Floyd [address] [place] [address] PCP - General Internal Medicine 09/03/24 Team Status: Active Member Role/Relationship Status Dates Dr. Amos Floyd MD Primary care physician Activ e Team Status: Inactive Member Role/Relationship Status Dates Dr. Amos Floyd MD Primary care physician Activ e Start: July 23, 2024 End: July 23, 2024 Dr. Amos Floyd MD Referring Provider Active Start: July 23, 2024 End: July 23, 2024 Heaven Bolton PICK UP, PICK UP-C Attending physician Active Start: July 23, 2024 End: July 23, 2024 Team Status: Inactive Member Role/Relationship Status Dates Dr. Amos Floyd MD Primary care physician Activ e Start: August 05, 2024 End: August 05, 2024 Dr. Jordan Marte MD Attending physician Active Start: August 05, 2024 End: August 05, 2024 Dr. Jordan Marte MD Referring Provider Active S tart: August 05, 2024 End: August 05, 2024 Team Status: Inactive Member Role/Relationship Status Dates Dr. Amos Floyd MD Primary care physician Activ e Start: August 07, 2024 End: August 09, 2024 Dr. Obinna Frye MD Emergency Department Physician Active Start: August 07, 2024 End: August 09, 2024 Dr. Nixon Silverio , DO Admitting physician Active Start: August 07, 2024 End: August 09, 2024 Dr. Nixon Silverio DO Referring Provider Active Start: August 07, 2024 End: August 09, 2024 Dr. Nixon Silverio DO Nurse Practitioner Active Start: August 07, 2024 End: August 09, 2024 Dr. Jairo Mitchell DO Attending physician Active Start: August 07, 2024 End: August 09, 2024 Dr. Ted Toro MD Nurse Practitioner Active Start: August 07 End: August 09, 2024 Team Status: Active Member Role/Relationship Status Dates Dr. Amos Floyd MD Primary care physician Activ e Start: August 08, 2024 Dr. Obinna Frye MD Emergency Department Physician Active Start: August 08, 2024 Dr. Nixon Silverio DO Admitting physician Active Start: August 08, 2024 Dr. Nixon Silverio DO Nurse Practitioner Active Start: August 08, 2024 Dr. Ted Toro MD Attending physician Active Start: August 08 Dr. Ted Toro MD Nurse Practitioner Active Start: August 08 Team Status: Active Member Role/Relationship Status Dates Dr. Scotty Barone MD Attending physician Active Start: August 09, 2024 Dr. Ted Toro MD Referring Provider Active Start: August 09, 2024 Team Status: Active Member Role/Relationship Status Dates Dr. Amos Floyd MD Primary care physician Activ e Start: August 09, 2024 Dr. Obinna Frye MD Emergency Department Physician Active Start: August 09, 2024 Dr. Nixon Silverio DO Admitting physician Active Start: August 09, 2024 Dr. Nixon Silverio DO Nurse Practitioner Active Start: August 09, 2024 Dr. Jairo Mitchell DO Attending physician Active Start: August 09, 2024 Dr. Jairo Mitchell DO Nurse Practitioner Active Start: August 09, 2024 Dr. Ted Toro MD Nurse Practitioner Active Start: August 09 Team Status: Inactive Member Role/Relationship Status Dates SAM HAMPTON Attending physician Active S tart: September 10, 2024 End: September 10, 2024 SAM HAMPTON Referring Provider Active St art: September 10, 2024 End: September 10, 2024 Dr. Amos Floyd MD Primary care physician Activ e Start: September 10, 2024 End: September 10, 2024 Team Status: Inactive Member Role/Relationship Status Dates Dr. Amos Floyd MD Primary care physician Activ e Start: October 03, 2024 End: October 03, 2024 CARRIE Marie Attending physician Active Start: October 03, 2024 End: October 03, 2024 CARRIE Marie Referring Provider Active Start: October 03, 2024 End: October 03, 2024 Team Status: Inactive Member Role/Relationship Status Dates SAM HAMPTON Attending physician Active S tart: October 15, 2024 End: October 15, 2024 SAM HAMPTON Referring Provider Active St art: October 15, 2024 End: October 15, 2024 Dr. Amos Floyd MD Primary care physician Activ e Start: October 15, 2024 End: October 15, 2024 Team Status: Inactive Member Role/Relationship Status Dates Dr. Amos Floyd MD Primary care physician Activ e Start: November 14, 2024 End: November 14, 2024 Dr. Amos Floyd MD Referring Provider Active Start: November 14, 2024 End: November 14, 2024 Dr. Jordna Marte MD Attending physician Active Start: November 14, 2024 End: November 14, 2024 Point Of Care Specialist Relationship Specialty Start Date End Date Amos Floyd [address] [place] [address] PCP - General Internal Medicine 09/03/24 Point Of Care Specialist Relationship Specialty Start Date End Date Amos Floyd [address] [place] [address] PCP - General Internal Medicine 09/03/24 Team Status: Inactive Member Role/Relationship Status Dates SAM HAMPTON Attending physician Active S tart: September 10, 2024 End: September 10, 2024 SAM HAMPTON Referring Provider Active St art: September 10, 2024 End: September 10, 2024 Dr. Amos Floyd MD Primary care physician Activ e Start: September 10, 2024 End: September 10, 2024 Team Status: Inactive Member Role/Relationship Status Dates Dr. Amos Floyd MD Primary care physician Activ e Start: October 03, 2024 End: October 03, 2024 CARRIE Marie Attending physician Active Start: October 03, 2024 End: October 03, 2024 CARRIE Marie Referring Provider Active Start: October 03, 2024 End: October 03, 2024 Team Status: Inactive Member Role/Relationship Status Dates SAM HAMPTON Attending physician Active S tart: October 15, 2024 End: October 15, 2024 SAM HAMPTON Referring Provider Active St art: October 15, 2024 End: October 15, 2024 Dr. Amos Floyd MD Primary care physician Activ e Start: October 15, 2024 End: October 15, 2024 Team Status: Inactive Member Role/Relationship Status Dates Dr. Amos Floyd MD Primary care physician Activ e Start: November 14, 2024 End: November 14, 2024 Dr. Amos Floyd MD Referring Provider Active Start: November 14, 2024 End: November 14, 2024 Dr. Jordan Marte MD Attending physician Active Start: November 14, 2024 End: November 14, 2024 Team Status: Inactive Member Role/Relationship Status Dates Dr. Amos Floyd MD Primary care physician Activ e Start: November 25, 2024 End: November 25, 2024 Dr. Jennifer Tarango DO Attending physician Active Start: November 25, 2024 End: November 25, 2024 Dr. Jennifer Tarango DO Referring Provider Active Start: November 25, 2024 End: November 25, 2024 Team Status: Inactive Member Role/Relationship Status Dates Dr. Amos Floyd MD Primary care physician Activ e Start: December 03, 2024 End: December 03, 2024 CARRIE Marie Attending physician Active Start: December 03, 2024 End: December 03, 2024 CARRIE Marie Referring Provider Active Start: December 03, 2024 End: December 03, 2024 Dr. Jennifer Tarango DO Nurse Practitioner Active Start: December 03, 2024 End: December 03, 2024 Team Status: Active Member Role/Relationship Status Dates Dr. Amos Floyd MD Primary care physician Activ e Start: December 04, 2024 Dr. Jodran Marte MD Attending physician Active Start: December 04, 2024 Team Status: Active Member Role/Relationship Status Dates Dr. Amos Floyd MD Primary care physician Activ e Start: December 10, 2024 Dr. Jennifer Tarango , DO Attending physician Active Start: December 10, 2024 Dr. Jennifer Tarango , DO Referring Provider Active Start: December 10, 2024 Point Of Care Specialist Relationship Specialty Start Date End Date FloydAmos hernandez Arnie [address] [place] [address] PCP - General Internal Medicine 09/03/24 Scheduled Active and Recently Administ ered Medications [...] Aicha Call RN)2013 (Given - Provider: Yevgeniy Odom, ROSS) 0934 (Given - Provider: Aicha Call, ROSS)1999 (Given - Provider: Angelica Dominguez RN) 0838 (Given - Provider: Shakira Corley, ROSS)2100 (Due) hydrocortisone (Cortef) tablet 20 mg 20 [...] at 2100 2013 (Given - Provider: Yevgeniy Odom RN) 2000 (Given - Provider: Angelica Dominguez RN) 2100 (Due) warfarin (Coumadin) tablet 2.5 mg 2.5 [...] via IV Push, administer over 3-5 minutes. 0458 (Given - Provider: Yevgeniy Odom RN)304 (Given - Provider: Aicha Call, ROSS) ondansetron (Zofran) tablet 4 mg(Linked Group 2) 4 mg, oral, Every 8 hours PRN, nausea/vomiting, first line, Starting on Mon05/24/23 at 0205, 1st Line. Use oral route first, if possible. If inadequate response within 60 minutes, proceed to next-line agent for same PRN reason or contact provider if no further options ordered. 0458 (See Alternative - Provider: Yevgeniy Odom RN)1740 [...] via IV Push, administer over 3-5 minutes.
Scheduled Medication Order 10/22/2024 10/23/2024 10/24/2024 apixaban (Eliquis) tablet 5 mg 5 mg, Oral, 2 times daily, First dose on Mon10/23/24 at 2100, Anticoagulant 2054 (Given - Provider: Krystal Mcgee RN) 933 (Given - Provider: Del Allen RN) atorvastatin (Lipitor) tablet 10 mg 10 mg, Oral, Nightly, First dose on Mon10/23/24 at 2100, Substituted for simvastatin (Zocor). 2054 (Given - Provider: Krystal Mcgee RN) furosemide (Lasix) tablet 40 mg 40 mg, Oral, Daily, First dose on Mon10/24/24 at 0900 0934 (Given - Provid er: Del Allen RN) hydrocortisone (Cortef) tablet 10 mg 10 mg, Oral, Every 8 hours, First dose on Mon10/23/24 at 2100 2054 (Given - Provider: Krystal Mcgee RN) 0531 (Given - Provider: Krystal Mcgee RN)1300 (Canceled Entry - Provider: Automatic Discharge Provider - Comment: Automatically canceled at discontinue of medication order) Hydrocortisone Sod Suc (PF) (Solu-CORTEF) injection 50 mg (COMPLETED) 50 mg, IntraVENous, Once, On Mon10/24/24 at 0800, For 1 dose 09 (Given - Provid er: Del Allen RN) lisinopril tablet 5 mg 5 mg, Oral, Daily, First dose on Mon10/24/24 at 0900 0907 (Not Given - Provider: Del Allen RN - Reason: Other - Comment: holding, syst 100) methenamine hippurate (Hiprex) tablet 1 g 1 g, Oral, Nightly, First dose on Mon10/23/24 at 2099 2054 (Given - Provider: Krystal Mcgee RN) mupirocin (Bactroban) 2 % ointment 1 Application 1 Application, Nasal, 2 times daily, First dose on Mon10/23/24 at 0945, For 5 days, Recovery & On Unit, Indications: MRSA Nasal Decolonization 937 (Not Given - Provider: Ben Ontiveros RN - Reason: Patient/family refused)2054 (Given - Provider: Krystal Mcgee RN) 0938 (Given - Provider: Del Allen RN) vancomycin (Vancocin) 1,000 mg in sodium chloride 0.9 % 250 mL IVPB (Vial Mate) (COMPLETED) 1,000 mg, IntraVENous, at 166.7 mL/hr, Administer over 90 Minutes, Grinder Chipper to O.R., On Mon10/23/24 at 0545, For 1 dose, Preprocedure, Administer within 1 hour prior to incision. Vial Mate, Suspected Indication (Select all that apply): Surgical Prophylaxis 0745 (New Bag - Provider: Elijah Zaldivar, LDIIA - SPORTS EQUIPMENT REPAIRER) PRN Medication Order 10/22/2024 10/23/2024 10/24/2024 acetaminophen (Tylenol) tablet 650 mg 650 mg, Oral, Every 4 hours PRN, mild pain (1-3), Fever > 100.5 F (38 C), Starting on Mon10/23/24 at 0932, Recovery & On Unit, Maximum dose of acetaminophen is 4000 mg from all sources in 24 hours. heparin 1,000 Units in sodium chloride 0.9 % 500 mL OR irrigation (CANCELED) As needed, Starting on Mon10/23/24 at 0818, Intraprocedure 0818 (Given - Provider: Memo Canas MD) iopamidol (Isovue-300) 61 % injection (CANCELED) As needed, Starting on Mon10/23/24 at 0908, Intraprocedure 0908 (Given - Provider: Memo Canas MD) lidocaine (Xylocaine) 1 % injection (CANCELED) As needed, Starting on Mon10/23/24 at 0908, Intraprocedure 0908 (Given - Provider: Memo Canas MD) perflutren protein A microsphere (Optison) 3 mL in sodium chloride (PF) 0.9 % 10 mL IV (COMPLETED) 0-10 mL, IntraVENous, IMG once PRN, other, Suboptimal echo image, Starting on Mon10/23/24 at 0932, For 1 dose, CV Procedural Medications, Administer via slow IVP for suboptimal echocardiogram enhancement. May administer as divided doses to reach optimal image enhancement 0908 (Given - Provid er: Del Allen RN) FOR RECORDS PERTAINING TO PATIENTS WHO ARE [...] BE BASED ON THE PRIMARY CLINICAL RECORDS. [facility]. provides no warranty or guarantee of the accuracy or completeness of information in this document.
[2024-12-27] MEDS: Metoprolol(XL)Succ 50 MG Tablet PO ×2 (00:59→10:12)
[2024-12-27] MEDS: Oxymetazoline 0.05% 1 SPRAY SPRAY.BTL 2 SPRAY NASAL (01:29)
--- NOTE | 2024-12-27 02:37 | EX.ED.DYSGE1 ---
HPI History of Present Illness Chief Complaint: Nosebleed Narrative Narrative: Patient was seen and examined after presenting to ED for epistaxis she is anticoagulated on Eliquis denies any trauma to the nose states she was not picking it. [facility] Medical History Overweight (BMI 25.0-29.9) Aortic stenosis Aortic stenosis, severe Hamilton's disease MVP (mitral valve prolapse) Aortic stenosis Hypokalemia Elevated serum creatinine Acute prerenal azotemia History of kidney cancer Chronic kidney disease Hypercalcemia Frequent falls Closed head injury (03/20/20) Hypoglycemia (03/20/20) Acute electrocardiogram changes Atopic dermatitis Osteopenia determined by x-ray History of pulmonary embolism [facility] (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 Orthostatic hypotension Chronic kidney disease, stage 3 Kyler disease Essential (primary) hypertension Hyperlipidemia Recurrent deep vein thrombosis (DVT) History of non-ST elevation myocardial infarction (NSTEMI) (04/2009) Pyelonephritis Cystocele with rectocele History of DVT (deep vein thrombosis) Hypotension Home Medications ?Medication ?Instructions ?Recorded ?Last Taken ?Type denosumab 60 mg/mL subcutaneous 60 mg subcut [id number] #1 mL 11/24/22 Unknown Rx syringe (Prolia) nitroglycerin 0.4 mg sublingual 0.4 mg sublingual Q5-15M PRN 07/26/23 Unknown Rx tablet Cardiac/Chest Pain #25 tabs methenamine hippurate 1 gram tablet 1 g PO QHS 04/29/24 Unknown History Held on 08/09/24. Instructions: Resume on 08/14/24. simvastatin 20 mg tablet 20 mg PO QHS #90 tabs 07/23/24 Unknown Rx ascorbic acid (vitamin C) 1,000 mg 1,000 mg PO QHS 08/07/24 Unknown History tablet hydrocortisone 10 mg tablet 10 mg PO TID #27 tabs 08/09/24 Unknown Rx apixaban 5 mg tablet (Eliquis) 5 mg PO BID #180 tabs 09/17/24 Unknown Rx metoprolol succinate 50 mg 50 mg PO QDAY 11/14/24 Unknown History tablet,extended release 24 hr lisinopril 5 mg tablet 5 mg PO DAILY 12/27/24 Unknown History Allergy/AdvReac Type Severity Reaction Status Date / Time ciprofloxacin (From Cipro) Allergy Rash Verified 12/27/24 00:22 Penicillins Allergy Rash Verified 12/27/24 00:22 Family History Father CVA (cerebral vascular accident) Mother Myocardial infarction, Onset Age: 87 Other History of DVT (deep vein thrombosis) [facility] (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 Surgical History 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) History of left heart catheterization (04/2009) History of left nephrectomy (2000) History of total abdominal hysterectomy History of bladder repair surgery H/O partial nephrectomy (2009) H/O total cystectomy Social History Smoking Status: Never smoker alcohol intake: never substance use type: does not use caffeine: Yes what type of physical activity do you participate in: walking seatbelt use: always do you feel safe at home: Yes additional social history: [place]- Retired patient is retired ROS ROS ED ROS Narrative Pertinent Positives: Epistaxis on Eliquis Pertinent Negatives: Trauma fevers chills The remainder of review of systems negative unless otherwise stated in the HPI above. Systems reviewed including constitutional, psychiatric, cardiovascular, respiratory, integument, HENT, gastrointestinal. EXAM Physical Exam Narrative Exam Narrative: Patient is afebrile hemodynamically stable does not appear toxic or in distress she was oxygenating well on room air she is normocephalic she does have blood from her left nare however nothing going down her posterior oropharynx intact and equal MSPs. Const Vital Signs: 12/27/24 00:17 12/27/24 01:42 12/27/24 02:54 Temperature 97.6 F L Temperature Source Oral Pulse Rate 118 H Respiratory Rate 16 Blood Pressure 153/111 H 127/45 H Blood Pressure Mean 125 72 Pulse Ox 94 Oxygen Delivery Method Room Air Room Air 12/27/24 03:11 Temperature Temperature Source Pulse Rate 80 Respiratory Rate 17 Blood Pressure 145/90 H Blood Pressure Mean 108 Pulse Ox 98 Oxygen Delivery Method Room Air MDM MDM MDM Narrative Medical decision making narrative: Nursing notes, triage notes, available previous documentation, and vital signs were reviewed. Any discrepancies noted were addressed. Differential Diagnoses: Likely anterior plexus bleed lower suspicion for posterior but still needs to be consideration Interventions: Nose clamp oxy metolazone metoprolol Lasix Fluids Given: 1 L normal saline ordered initially but discontinued after seeing chest xray Labs Reviewed: No leukocytosis leukopenia anemia D-dimer is 0.53 but age-adjusted this is beneath the cutoff. No significant electrolyte abnormalities she does have renal insufficiency at baseline her creatinine today is 1.7 her troponin is 97 with a proBNP of over 70,000 Imaging Reviewed: Personally reviewed and interpreted by me: Chest x-ray appears to demonstrate evidence of edema concerning for heart failure exacerbation EKG: Sinus tachycardia rate of 106. I do not see evidence of ACS. No evidence of prolonged QT syndrome. No evidence of AV Block. No short AL intervals, wide QRS, or Delta waves indicative of WPW. No evidence of dagger-like q waves or LVH indicative of Hypertrophic Cardiomyopathy. No evidence of Brugada Syndrome. EKG interpretation is noted and agreed to in the EMR. The interpretation of this patient's EKG contributed directly to the care and management of this patient. Previous Documentation Reviewed: None available or applicable at this time. ED Course: Patient presenting with epistaxis she is anticoagulated on Eliquis she was hypertensive did not take her nighttime medication on reevaluation after initially just using the clamp I then had Afrin spray applied and then clamped when I went to go check her and get her up to ambulate her she stated Why is this happening why is my breathing like this is been like this for a few days now I have not even been wearing a bra. Patient did not initially discussed this before and then stated after I informed her we really need to evaluate this more given her history of PE and DVTs even though she was recently started on the Eliquis oh great there I go opening my big mouth. Patient was initially ordered 1 L of normal saline however this was discontinued after reviewing chest x-ray results as well as the proBNP being greater than 70,000 she was instead given Lasix this is likely causing her dyspnea that she has been having for several days later ended up also disclosing that she has been orthopneic as well. Patient will really require admission. Unfortunately there is nothing that we can visibly cauterize for her nosebleed. However on reevaluation at 0352 patient's epistaxis seems to have discontinued 0435: Unfortunately patient's no started bleed again so went ahead and used anterior Rhino Rocket as there was still nothing that I could visibly cauterize so I was able to gently place the Rhino Rocket in the left nare and gently inflated with air successfully stopping the bleeding 0500: discussed with hospitalist agreeable to admission This note was made utilizing voice recognition software. All attempts were made to correct spelling or other errors prior to note completion. However, due to the fast-paced nature of emergency medicine, some errors may still be present. Lab Data Labs: Laboratory Results - last 24 hr 12/27/24 02:50 WBC 9.0 RBC 5.10 Hgb 14.4 Hct 45.7 MCV 89.6 MCH 28.2 MCHC 31.5 L RDW Std Deviation 51.9 H RDW Coeff of Slava 16.0 H Plt Count 141 L MPV 12.3 H Immature Gran % (Auto) 0.600 Neut % (Auto) 66.0 Lymph % (Auto) 19.8 Hemphill % (Auto) 12.1 H Eos % (Auto) 0.7 Baso % (Auto) 0.8 Absolute Neuts (auto) 5.9 Absolute Lymphs (auto) 1.77 Nucleated RBC % 0 D-Dimer Quant (PE/DVT) 0.53 H* Sodium 143 Potassium 4.4 Chloride 111 H Carbon Dioxide 19.2 L Anion Gap 13 BUN 60 H Creatinine 1.73 H Est GFR (MDRD) Non-Af 29 L BUN/Creatinine Ratio 34.7 H Glucose 140 H Calcium 8.7 Total Bilirubin 1.37 H AST 25 ALT 34 Alkaline Phosphatase 92 Troponin T High Sens 97 H* D [place] > [address]170 H Total Protein 5.5 L Albumin 3.7 Globulin 1.8 L Albumin/Globulin Ratio 2.1 Radiography Diagnostic Testing: Clinical Impression(s) from Imaging Studies Chest X-Ray 12/27/24 03:00 IMPRESSION: Interval appearance of minimal bilateral pleural effusions. Associated passive atelectatic airspace disease of the lower lobes. Increased dorsal kyphosis, unchanged. Mild chronic compression deformities of the lower thoracic vertebral bodies, unchanged. Enlarged cardiac silhouette. Reading [facility] [address] Discharge Plan Triage Chief Complaint: Nosebleed ED Provider: Kishore Sandra Dx/Rx/DC Orders Clinical Impression: Epistaxis, Dyspnea, Anticoagulated on apixaban, CHF exacerbation Prescriptions: No Action Prolia 60 mg/mL syringe 60 mg subcut [id number] Qty: 1 1RF methenamine hippurate 1 gram tablet 1 g PO QHS nitroglycerin 0.4 mg tablet, sublingual 0.4 mg SUBLINGUAL Q5-15M PRN (Reason: Cardiac/Chest Pain) Qty: 25 3RF metoprolol succinate 50 mg tablet extended release 24 hr 50 mg PO QDAY simvastatin 20 mg tablet 20 mg PO QHS Qty: 90 3RF lisinopril 5 mg tablet 5 mg PO DAILY ascorbic acid (vitamin C) 1,000 mg tablet 1,000 mg PO QHS hydrocortisone 10 mg tablet 10 mg PO TID Qty: 27 0RF Rx Instructions: 4 tabs TID for 3 days, then 3 tabs TID for 3 days, then 2 tabs TID for 3 days. Eliquis 5 mg tablet 5 mg PO BID Qty: 180 3RF Primary Care Provider: Amos Fulton Referrals: Amos Fulton MD [Primary Care Provider, Internal Medicine] Print Language: Amharic
[2024-12-27] MEDS: 0.9% Normal Saline (1000mL) 1,000 ML 999 ML IV (02:52)
[2024-12-27 02:58] LABS: Hematocrit 45.7 % (37-47); Hemoglobin 14.4 g/dL (12.0-15.0); Immature Granulocytes Count 0.050 X10^3/uL (0.0-0.0); Mean Corp Hgb Conc 31.5 g/dL (32-36); Mean Corpuscular Volume 89.6 fL (81-99); Mean Platelet Vol. 12.3 fl (6.2-12.0); NRBC Flagged by Analyzer 0 % (0-5); Platelet Count 141 K/mm3 (150-450); RBC Distribution Width CV 16.0 % (11.6-14.6); RBC Distribution Width SD 51.9 fl (35.1-43.9); Red Blood Count 5.10 M/mm3 (4.2-5.4); White Blood Count 9.0 K/mm3 (4.4-11.0)
--- NOTE | 2024-12-27 03:00 | RAD_ITS ---
PROCEDURE: CHEST PA AND LATERAL 12/27/2024 REASON FOR EXAM: SHORTNESS OF BREATH TECHNIQUE: Procedure Code: RADCXR Modality: DX Procedure: CHEST PA AND LATERAL COMPARISON: 07/23/2024. FINDINGS: Interval appearance of minimal bilateral pleural effusions. Associated passive atelectatic airspace disease of the lower lobes. Increased dorsal kyphosis, unchanged. Mild chronic compression deformities of the lower thoracic vertebral bodies, unchanged. Enlarged cardiac silhouette. Normal mediastinum and timothy. Normal visualized pulmonary arteries. Atheromatous plaques of the visualized aortic arch and descending thoracic aorta. Diffuse spondylosis of the visualized thoracic spine. Normal visualized ribs, clavicles. Degenerative joint disease. There is no demonstrated abnormality of the visualized soft tissue structures of the upper abdomen. RAD/Chest PA and Lateral IMPRESSION: Interval appearance of minimal bilateral pleural effusions. Associated passive atelectatic airspace disease of the lower lobes. Increased dorsal kyphosis, unchanged. Mild chronic compression deformities of the lower thoracic vertebral bodies, un changed. Enlarged cardiac silhouette. [facility]
[2024-12-27 03:22] LABS: D-Dimer Quantitative (DVT/PE) 0.53 FEU/ug/m (0.27-0.49)
[2024-12-27 03:26] LABS: AST(SGOT) 25 U/L (<=31); Alanine Aminotransfer ALT/SGPT 34 U/L (<=34); Albumin, Serum 3.7 g/dL (3.4-4.8); Alkaline Phosphatase 92 U/L (35-104); Anion Gap 13 (5-15); BUN 60 mg/dL (4-19); BUN/Creat Ratio 34.7 RATIO (10-20); Calcium,Total 8.7 mg/dL (7.6-11.0); Carbon Dioxide 19.2 mmol/L (21.0-32.0); Chloride 111 mmol/L (98-108); Globulin 1.8 g/dL (2.2-4.2); Glucose 140 mg/dL (70-99); Potassium 4.4 mmol/L (3.3-5.1)
[2024-12-27 03:39] LABS: Pro- Brain NATRIURETIC PEPTIDE > 70000 pg/mL (<=1800); Troponin T High Sensitivity 97 ng/L (<=14)
[2024-12-27 05:24] LABS: Troponin T High Sens 2 HR 102 ng/L (<=14)
--- NOTE | 2024-12-27 05:25 | HP.PCM.HOS_ITS ---
HPI - General General Date of Admission: 12/27/24 HPI Narrative VALENTIN WEINSTEIN, is a 79 F who presents to the hospital with epistaxis. She nosebleed out of her left nostril and she is on anticoagulation which cannot be discontinued secondary to DVTs that were found on ultrasound in July 2024. During this process it was noticed that she had increased work of breathing and a proBNP was obtained which was greater than 70,000. She states that she has been having increased shortness of breath however she is not requiring any oxygen either at rest or with ambulation. Chest x-ray showed minimal pleural effusions. She has had extensive medical history over the last couple months, initially she was admitted in July with sepsis and UTI which was found also had bilateral DVTs, and she had been worked up for her aortic stenosis and had a TAVR placed in the beginning of October. Over the intervening period she has had a significant reduction in her ejection fraction and an echocardiogram from the outside hospital 2 months ago demonstrates an EF of 18% with stage II diastolic dysfunction. She also has mitral valve insufficiency but her aortic valve looks good. She does have some orthopnea but no lower extremity edema. [facility] Medical History Overweight (BMI 25.0-29.9) Aortic stenosis Aortic stenosis, severe Mesa's disease MVP (mitral valve prolapse) Aortic stenosis Hypokalemia Elevated serum creatinine Acute prerenal azotemia History of kidney cancer Chronic kidney disease Hypercalcemia Frequent falls Closed head injury (03/20/20) Hypoglycemia (03/20/20) Acute electrocardiogram changes Atopic dermatitis Osteopenia determined by x-ray 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 Orthostatic hypotension Chronic kidney disease, stage 3 Kyler disease Essential (primary) hypertension Hyperlipidemia Recurrent deep vein thrombosis (DVT) History of non-ST elevation myocardial infarction (NSTEMI) (04/2009) Pyelonephritis Cystocele with rectocele History of DVT (deep vein thrombosis) Hypotension Home Medications ?Medication ?Instructions ?Recorded ?Last Taken ?Type denosumab 60 mg/mL subcutaneous 60 mg subcut [id number] #1 mL 11/24/22 Unknown Rx syringe (Prolia) nitroglycerin 0.4 mg sublingual 0.4 mg sublingual Q5-1 5M PRN 06/05/24 Unknown Rx tablet Cardiac/Chest Pain #25 tabs methenamine hippurate 1 gram tablet 1 g PO QHS 5 Unknown History Held on 08/09/24. Instructions: Resume on 08/14/24. simvastatin 20 mg tablet 20 mg PO QHS #90 tabs Unknown Rx ascorbic acid (vitamin C) 1,000 mg 1,000 mg PO QHS Unknown History tablet hydrocortisone 10 mg tablet 10 mg PO TID #27 tabs 07/22 Unknown Rx apixaban 5 mg tablet (Eliquis) 5 mg PO BID #180 tabs 0 09/17/24 Unknown Rx metoprolol succinate 50 mg 50 mg PO QDAY 11/14/24 Unkn own History tablet,extended release 24 hr lisinopril 5 mg tablet 5 mg PO DAILY 12/27/24 Unkno wn History Allergy/AdvReac Type Severity Reaction Status Date / Time ciprofloxacin (From Cipro) Allergy Rash Verified 12/27/24 00:22 Penicillins Allergy Rash Verified 12/27/24 00:22 Family History Father CVA (cerebral vascular accident) Mother Myocardial infarction, Onset Age: 87 Other History of DVT (deep vein thrombosis) [facility] (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 Surgical History 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) History of left heart catheterization (04/2009) History of left nephrectomy (2000) History of total abdominal hysterectomy History of bladder repair surgery H/O partial nephrectomy (2009) H/O total cystectomy Social History Smoking Status: Never smoker alcohol intake: never substance use type: does not use caffeine: Yes what type of physical activity do you participate in: walking seatbelt use: always do you feel safe at home: Yes additional social history: [place]- Retired patient is retired ROS Constitutional Constitutional: Denies chills, fatigue, fever(s) or malaise Eyes Eyes: Denies blurry vision ENT HEENT: Reports epistaxis; Denies headache(s) or nasal discharge Cardiovascular Cardiovascular: Denies chest pain, dyspnea on exertion or syncope Respiratory/Chest Respiratory/Chest: Reports shortness of breath at rest and shortness of breath with exertion; Denies cough Gastrointestinal Gastrointestinal: Denies constipation, diarrhea, nausea or vomiting Genitourinary Genitourinary: Denies dysuria Neurologic Neurologic: Denies focal weakness, numbness or tremor(s) Psychiatric Psychiatric: Denies anxiety or depression Vital Signs Vital Signs Vital Signs: 12/27/24 00:17 12/27/24 01:42 12/27/24 02:54 Temperature 97.6 F L Temperature Source Oral Pulse Rate 118 H Respiratory Rate 16 Blood Pressure 153/111 H 127/45 H Blood Pressure Mean 125 72 Pulse Ox 94 Oxygen Delivery Method Room Air Room Air 12/27/24 03:11 12/27/24 05:11 Temperature 97.9 F Temperature Source Pulse Rate 80 105 H Respiratory Rate 17 28 H Blood Pressure 145/90 H 126/90 H Blood Pressure Mean 108 102 Pulse Ox 98 95 Oxygen Delivery Method Room Air Physical Exam Narrative General: Alert, Oriented x3, Cooperative, No apparent distress HEENT: Atraumatic, PERRLA, EOMI, Normocephalic, nasal packing in the left nostril Oral: Moist Mucosa Neck: Supple, No JVD Lungs: Diminished, Normal air movement, No rhonchi, No wheeze, No rales, tachypneic Cardiovascular: Regular rate, Regular Rhythm, Normal S1, Normal S2, No murmurs Abdomen: Soft, Non Tender, Non-Distended, No Hepato-splenomegaly Extremities: No edema, Capillary Refill Less than 3 Seconds Skin: No rashes, No breakdown Musculoskeletal: No Tenderness to Palpation of Joints or Extremities Neurological: No focal neurological deficits, moves all extremities Psych/Mental Status: Normal Affect, Appropriate Results Lab / Micro Data 12/27/24 02:50 12/27/24 02:50 Labs: Laboratory Results - last 24 hr 12/27/24 02:50: WBC 9.0, RBC 5.10, Hgb 14.4, Hct 45.7, MCV 89.6, MCH 28.2, MCHC 31.5 L, RDW Std Deviation 51.9 H, RDW Coeff of Slava 16.0 H, Plt Count 141 L, MPV 12.3 H, Immature Gran % (Auto) 0.600, Neut % (Auto) 66.0, Lymph % (Auto) 19.8, M julio cesar % (Auto) 12.1 H, Eos % (Auto) 0.7, Baso % (Auto) 0.8, Absolute Neuts (auto) 5.9, Absolute Lymphs (auto) 1.77, Nucleated RBC % 0, D-Dimer Quant (PE/DVT) 0.53 H*, Sodium 143, Potassium 4.4, Chloride 111 H, Carbon Dioxide 19.2 L, Anion Gap 13, BUN 60 H, Creatinine 1.73 H, Est GFR (MDRD) Non-Af 29 L, BUN/Creatinine Ratio 34.7 H, Glucose 140 H, Calcium 8.7, Total Bilirubin 1.37 H, AST 25, ALT 34, Alkaline Phosphatase 92, Troponin T High Sens 97 H* D, [place] > [address]120 H, Total Protein 5.5 L, Albumin 3.7, Globulin 1.8 L, Albumin/Globulin Ratio 2.1 12/27/24 05:00: Troponin T Hi Sens 2 Hr 102 H* Micro: Microbiology 12/27/24 02:40 Mucosa - Nose SARS-CoV-2, Influenza & RSV (PCR) - Final Imaging Radiology Impression Chest X-Ray 12/27/24 03:00 IMPRESSION: Interval appearance of minimal bilateral pleural effusions. Associated passive atelectatic airspace disease of the lower lobes. Increased dorsal kyphosis, unchanged. Mild chronic compression deformities of the lower thoracic vertebral bodies, unchanged. Enlarged cardiac silhouette. Reading Location: [place] [id number] Assessment & Plan Assessment/Plan (1) Dyspnea: PLAN: Plan 1. Increased work of breathing secondary to acute on chronic combined systolic and diastolic CHF/essential HTN/HLD/aortic stenosis status post TAVR ? Minimal pleural effusions and she is not hypoxic and does not have any lower extremity edema ? It appears that she is supposed to be on Lasix but she states that she only supposed to take if she gains weight ? Will continue with IV Lasix given her increased work of breathing despite the lack other objective data for an exacerbation of CHF ? Continue with her metoprolol and lisinopril ? Will monitor make adjustments as necessary ? Continue simvastatin ? Her TAVR was performed on 10/24/2024 at [facility], her echo at that time demonstrated an EF of 18% stage II diastolic dysfunction ? Initial troponin was 94 however her last troponin in our system was 60 she has had recent cardiac workup therefore no further or pursued at this time, she had a left heart cath on 08/05/2024 with normal coronary arteries and an EF of 60%, and she does deny chest pain 2. Epistaxis ? This was controlled in the emergency room ? If it recurs and she has to be continued on her Eliquis consult ENT 3. Recent diagnosis bilateral DVTs and a history of PE ? 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 Continue with her home hydrocortisone 5. CKD 3 ? Renal function appears to be at baseline ? Will monitor make adjustments as necessary DVT: Eliquis Charges/Coding Visit Charges Inpatient E&M: 80139 Init Hosp L2
--- OUTSIDE RECORDS SUMMARY | 2024-12-27 05:31 | XMS RPT_ITS | CCD ---
Author Organization [facility] [employer]ini[employer] Care Team Providers Care Communications Advisor Name Role Phone ABEL HOLM Unavailable Unavailable [...] Logan Tripathi Other Provider Unavailab tomas Palencia MANAGER LIFE SCIENCES, MANAGER LIFE SCIENCES-C Diana Other Provider Dr. Alberto Gregorio Attending [...] Logan Tripathi Other Provider Unavailab tomas Palencia MANAGER LIFE SCIENCES, MANAGER LIFE SCIENCES-C Diana Other Provider Dr. Alberto Gregorio Attending [...] Provider Dr. Torsten Vann Attending Provider Roof MANAGER LIFE SCIENCES, MANAGER LIFE SCIENCES-Pasquale Prince Attending Provider Mariel, Dr. Trinidad Primary Care Provider Floyd, Dr. Trinidad Referring Provider Dr. Jordan Marte Attending Provider Dr. Amos Floyd Primary Care Provider Mariel, Dr. Trinidad Referring Provider Roof MANAGER LIFE SCIENCES, MANAGER LIFE SCIENCES-Pasquale Prince Attending Provider Dr. Jordan Marte Attending Provider ELISA MCDONOUGH Admitting Unavailable ELISA MCDONOUGH Attending Unavailable AMOS FLOYD Primary Care Unavailable Amos Floyd MD Primary Care Provider ELISA MCDONOUGH Admitting Unavailable AMOS FLOYD Primary Care Unavailable JAZMINE BRITT Attending Unavailable ALEXANDER GREGORY Consulting Unavailable Amos Floyd MD Primary Care Provider Fide BROKERAGE CLERK.ROOFER VINYL COATING, Rocio M Unavailable Dr. Amos Floyd MD Primary Care Provider Dr. Jordan Marte MD Other Provider Basim Shannon Attending Provider Basim Shannon Referring Provider Dr. Torsten Vann MD Other Provider Dr. Jennifer Tarango DO Other Provider [phone] Jennifer Tarango DO Attending Provider Dr. [...] Dr. Jennifer Tarango DO Other Provider [phone] Heaven Michel Attending Provider Dr. Amos Floyd [...] Provider Dr. Jennifer Tarango DO Other Provider Tucker Mckeon Attending Provider [phone] Tucker Mckeon Referring Provider [phone] Estuardo ZELAYA, Dr. Ortega Attending Provider [phone] Basim Ocampo Attending Provider Basim Ocampo Referring Provider Mariel ZELAYA, Dr. Trinidad Primary Care Provider MEMO CANAS Attending Provider MEMO CANAS Referring Provider [phone] MARIEL, AMOS Prince Primary Care Unavailable FLOYD, JIE Referring Unavailable FLOYD, JIE Primary Care Unavailable JAVIER ABBOTT Attending Unavailable FLOYD, JIE Primary Care Unavailable JAVIER ABBOTT Referring Unavailable FLOYD, AMOS Prince Primary Care Unavailable FLOYD, JIE Referring Unavailable FLOYD, JIE Primary Care Unavailable SELF Referring Unavailable FLOYD, JIE Attending Unavailable SELF Referring Unavailable FLOYD, JIE Attending Unavailable FLOYD, JIE Primary Care Unavailable FLOYD, IJE Attending Unavailable FLOYD, JIE Primary Care Unavailable DUSARELIS Gonzalez Referring Unavailable FLOYD, JIE Primary Care Unavailable DUSLisa, ARELIS Referring Unavailable FLOYD, JIE Primary Care Unavailable FLOYD, JIE Primary Care Unavailable NATHALY REN Attending Unavailable FLODY, JIE Primary Care Unavailable FLOYD, JIE Primary Care Unavailable FLOYD, JIE Attending Unavailable FLOYD, JIE Primary Care Unavailable FLOYD, JIE Primary Care Unavailable FLOYD, JIE Attending Unavailable FLOYD, JIE Primary Care Unavailable FLOYD, JIE Primary Care Unavailable Mariel ZELAYA, Dr. Trinidad Primary Care Physician Heaven Michel Attending Physician [phone] Estuardo ZELAYA, Dr. Ortega Attending Physician Uday [...] Unavailable Basim Shannon Referring Unavail able EstuardoJordan graec Consulting Unavailable Basim Shannon Attending Unavail able Amos Floyd Primary Care Unavailable Torsten Vann Consulting Unavailable Jennifer Tarango Consulting Unavailable Basim Shannon Referring Unavail able Basim Shannon Attending Unavail able Estuardo, [place] Consulting Unavailable Floyd, Amos Primary Care Unavailable Edwar, Torsten Consulting Unavailable Sukhdeep, Jennifer Consulting Unavailable Floyd, Amos Referring Unavailable Floyd, Amos Attending Unavailable Floyd, Amos Primary Care Unavailable Tucker Reyes Referring Unavailable CristyiterTucker Attending Unavailable Floyd, Amos Primary Care Unavailable Ron DISLA, Basim Montes Referring Unavail able Ron DISLA, Basim Montes Attending Unavail able Estuardo, [place] Consulting Unavailable Floyd, Amos Primary Care Unavailable Edwar, Torsten Consulting Unavailable Sukhdeep, Jennifer Consulting Unavailable Ron DISLA, Basim Montes Referring Unavail able Ron DISLA, Basim Montes Attending Unavail able Estuardo, Jordan Consulting Unavailable Floyd, Amos Primary Care Unavailable Ewdar, Torsten Consulting Unavailable Sukhdeep, Jennifer Consulting Unavailable RAYGOZA, RYA1 Referring Unavailable RAYGOZA, RYA1 Attending Unavailable Floyd, Amos Primary Care Unavailable Estuardo, [place] Attending Unavailable Floyd, Amos Primary Care Unavailable Nixon Silverio Admitting Unavailable Nixon Silverio Referring Unavailable Nixon Silverio Consulting Unavailable Ted Toro Attending Unavailable Floyd, Amos Primary Care Unavailable Ted Toro Consulting Unavailable Floyd, Amos Referring Unavailable Tucker Reyes Attending Unavailable Floyd, Amos Primary Care Unavailable Floyd, Amos Referring Unavailable Floyd, Amos Primary Care Unavailable Hoang MANAGER LIFE SCIENCES, Heaven Attending Unavailable Floyd, Amos Referring Unavailable [...] DISLA, Basim M Attending Unavail able Estuardo, [place] Consulting Unavailable Floyd, Amos Primary Care Unavailable Edwar, Torsten Consulting Unavailable Sukhdeep, Jennifer Consulting Unavailable Ron DISLA, Basim M Referring Unavail able Ron DISLA, Basim M Attending Unavail able Estuardo, Jordan Consulting Unavailable Floyd, Amos Primary Care Unavailable Edwar, Torsten Consulting Unavailable Sukhdeep, Jennifer Consulting Unavailable Jairo Mitchell Attending Unavailable Paula, Jairo Consulting Unavailable Nixon Silverio Attending Unavailable Estuardo, [place] Consulting Unavailable Floyd, Amos Primary Care Unavailable Estuardo, [place] Attending Unavailable Estuardo, Jordan Attending Unavailable Floyd, [...] (antibiotic) (3 sources) Penicillins Drug Allergy 3 [facility] Quinolones (antibiotic) (3 sources) Ciprofloxacin Drug Allergy 0 [facility] (20 sources) ciprofloxacin; Translations: [CIPROFLOXACIN] Drug Allergy 0 Rash, Other [facility] Repository (20 sources) Penicillins; Translations: [PENICILLINS] Propensity to adverse reactions (disorder) 3 Rash, Other [facility] Repository (1 source) ALLERGIES NOT ON FILE; Translations: [ALLERGIES NOT ON FILE] Propensity to adverse reactions (disorder) [facility] Repository (20 sources) amLODIPine; Translations: [AMLODIPINE] Drug Allergy [facility] Work Phone: Medications Current Medications Medication Drug [...] Comment on above: Take 1 capsule by [facility] two times a day for 5 [...] Comment on above: Take 400 Units by [facility] once daily. cyproheptadine hydrochloride 4 mg [...] ML pen injector Discontinued 300 mg SQ .[id number] April 02, 2020 1:00am April 04, 2020 10:48am sinus Comment on above: Inject 300 mg SQ gwen ry 2 weeks .[id number] Dupilumab (16 sources) Start: 4 End: inject [...] RELIEF) 50 mcg/actuation nasal spray Use 1 [place] in each nostril once daily. 0 07/20/2021 Discontinued Comment on above: Use 1 [place] in each nostril once daily. 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: [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] 11-26-2021 Episodic Other aftercare (1 source) Anticoagulant effect; Translations: [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] Episodic Other circulatory [...] 5 11-12-2019 Episodic Other aftercare (3 sources) 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; Translations: [Long-term (current) [...] Kidney and Bladderon 025 Kidney and Bladder [facility] Imaging Services [address] [place], [place] [address] Kidney and Bladder MR#: [id number] Acct: [id number] Name: LINDA PERALTA Rep #: [id number] : 1945 F 79 From: Betsy Bocanegra MD PCP: Dr. Amos Floyd MD Status: [facility] Study: Kidney and Bladder Date of Exam: 12/10/24 Exam# [id number] Ordering Dr: Jennifer Tarango DO PROCEDURE: KIDNEY [...] Bladder IMPRESSION: No right hydronephrosis. Reading Location: [facility] CC: Dr. Jennifer Tarango DO; Dr. Amos Floyd MD Baster Hand: Signed Normal [facility] Anion gap in Serum or Plasma Ordered By: Jennifer Tarango on 12-03-2024 Anion gap [Moles/Vol] 10 mmol/L 5-15 [facility] BUN/creatinine ratioOrdered By: Jennifer Tarango on 12-03-2024 Urea nitrogen/Creatinine [Mass ratio] 22.8 mg/mg High - [facility] Basic Metabolic Profile (BMP )on 12-03-2024 BUN/CRE 22.6 RATIO High 12-09 [facility] Comment on above: Performed By: #### L 9200.0000 #### [facility] [address] [place], [address] CO2 [Moles/Vol] 22.9 mmol/L Normal 21.0-32.0 [facility] Comment on above: Performed By: #### L 9200.0000 #### [facility] [address] [place], [address] Creatinine [Mass/Vol] 1.72 mg/dL High 0.70-1.20 [facility] Comment on above: Performed By: #### L 9200.0000 #### [facility] [address] [place], [address] GAP 11 Normal 07-04 [facility] Comment on above: Performed By: #### L 9200.0000 #### [facility] [address] [place], [address] Carbon dioxide, total [Moles /volume] in Central venous bloodOrdered By: Jennifer Tarango on 12-03-2024 CO2 [Moles/Vol] 23.5 mmol/L 21.0-32.0 [facility] Chloride assayOrdered By: Dallas Tarango on 12-03-2024 Chloride [Moles/Vol] 108 mmol/L 98-108 [facility] Glomerular filtration rate ( GFR) estimation/1.73 sq m using serum, plasma, or whole bOrdered By: Jennifer Tarango on 12-03-2024 GFR/1.73 sq M.predicted among non-blacks MDRD (S/P/Bld) [Vol rate/Area] 30 mL/min/{1.73_m2} Low >60 [facility] Comment on above: mL/min/1.73m2 CKD-EP I Creatinine Equation (2020) Potassium measurement (mass/ volume)Ordered By: Jennifer Tarango on 12-03-2024 Potassium (Unsp spec) [Mass/Vol] 4.6 mmol/L 3.3-5.1 [facility] Renal Profileon 12-03-2024 Albumin [Mass/Vol] 3.9 g/dL Normal 3.4-4.8 [facility] Comment on above: Performed By: #### L 9200.0000 #### [facility] [address] [place], [address] BUN/CRE 22.8 RATIO High 10- [facility] Comment on above: Performed By: #### L 9200.0000 #### [facility] [address] [place], [address] Calcium [Mass/Vol] 9.4 mg/dL Normal 7.6-11.0 [facility] Comment on above: Performed By: #### L 9200.0000 #### [facility] [address] [place], [address] Chloride [Moles/Vol] 108 mmol/L Normal 98-108 [facility] Comment on above: Performed By: #### L 9200.0000 #### [facility] [address] [place], [address] CO2 [Moles/Vol] 23.5 mmol/L Normal 21.0-32.0 [facility] Comment on above: Performed By: #### L 9200.0000 #### [facility] [address] [place], [address] Creatinine [Mass/Vol] 1.69 mg/dL High 0.70-1.20 [facility] Comment on above: Performed By: #### L 9200.0000 #### [facility] [address] [place], [address] GAP 10 Normal 5-15 [facility] Comment on above: Performed By: #### L 9200.0000 #### [facility] [address] [place], [address] GFR/1.73 sq M.predicted among non-blacks MDRD (S/P/Bld) [Vol rate/Area] 30 mL/min/{1.73_m2} Low >60 [facility] Comment on above: Result Comment: mL/m in/1.73m2 CKD-EPI Creatinine Equation (2020) Performed By: #### L 9200.0000 #### [facility] [address] [place], [address] Glucose [Mass/Vol] 83 mg/dL Normal 70-99 [facility] Comment on above: Performed By: #### L 9200.0000 #### [facility] [address] [place], [address] Phosphate [Mass/Vol] 2.6 mg/dL Low 2.7-4.5 [facility] Comment on above: Performed By: #### L 9200.0000 #### [facility] [address] [place], [address] Potassium [Moles/Vol] 4.6 mmol/L Normal 3.3-5.1 [facility] Comment on above: Performed By: #### L 9200.0000 #### [facility] [address] [place], [address] Sodium [Moles/Vol] 142 mmol/L Normal 133-145 [facility] Comment on above: Performed By: #### L 9200.0000 #### [facility] [address] [place], [place], [address] Urea nitrogen [Mass/Vol] 39 mg/dL High 06-08 [facility] Comment on above: Performed By: #### L 9200.0000 #### [facility] [address] [place], [place], [id number] Serum creatinine measurement (mass/volume)Ordered By: Jennifer Tarango on 12-03-2024 Creatinine [Mass/Vol] 1.69 mg/dL High 0.70-1.20 [facility] Serum glucose measurement (m ass/volume)Ordered By: Jennifer Tarango on 12-03-2024 Glucose [Mass/Vol] 83 mg/dL 70-99 [facility] Serum or plasma albumin scott urement (mass/volume)Ordered By: Jennifer Tarango on 12-03-2024 Albumin [Mass/Vol] 3.9 g/dL 3.4-4.8 [facility] Serum or plasma calcium scott urement (mass/volume)Ordered By: Jennifer Tarango on 12-03-2024 Calcium [Mass/Vol] 9.4 mg/dL 7.6-11.0 [facility] Serum or plasma urea nitroge n measurement (mass/volume)Ordered By: Jennifer Tarango on 12-03-2024 Urea nitrogen [Mass/Vol] 39 mg/dL High 06-08 [facility] Sodium levelOrdered By: Dustin Tarango on 12-03-2024 Sodium [Moles/Vol] 142 mmol/L 133-145 [facility] Office Visiton 11-28-2024 Follow-up visit [id number] Ingris Peralta 1945 F Date Provider Department Center 11/28/2024 [id number] JOEL [facility] [address] Family History Problem Relation Age of Onset Heart attack Mother Stroke Father Family Status - Relation Status Age at Mother Father Level of Service:30979 ID OFFICE/OUTPATIENT ESTABLISHED MOD MDM 30 MIN Reason for Visit and Comments: Cardiac Valve Problem [1334] Normal [facility] SHS Progress Noteon 11-28-2024 Progress Note [facility] - [place] [address] [facility] [address] Dept: [phone] Dept Visit type: Established : 1945 Reason for Visit: Cardiac Valve Problem Assessment and Plan 1. Chronic systolic heart failure (HCC) Class III. Stage C Continue metoprolol. Resume Lisinopril 5 mg daily. I will have her see the heart failure team given her severe LV dysfunction, Lares's disease, and CKD. 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 Na/K have remained stable [address] Ad[facility]- [facility] Subjective Ms Peralta is an 79 yr old female known to Dr. 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 She had an admission at [facility] in July for UTI after heart [...] specialty: Independent interpretation of tests: Basim Joel, BROKERAGE CLERK - ROOFER VINYL COATING [1] Allergies Allergen Reactions Amlodipine Swelling Ciprofloxacin [...] Disp: , (more content not included)... Normal SuddenValues [facility] US Heart TransthoracicOrdere d By: Jefferson Adorno on 11-28-2024 Aortic Arch 2.5 cm [employer] Phone: [phone] Aortic Sinus Valsalva 3.1 cm [employer] Phone: [phone] Aortic Sinus Valsalva Index 1.81 cm/m2 [employer] Phone: Aortic valve Mean systole pressure gradient by US.doppler derived full Bernoulli 10 mmHg [employer] Phone: Aortic valve Orifice area by US 2.5 cm2 [employer] Phone: Aortic valve Peak systolic flow by US.doppler 1.5 m/s [employer] Phone: Ascending Aorta 3.4 cm [employer] Phone: Ascending Aorta Index 1.99 cm/m2 [facility] [employer] Phone: AV Area by Peak Velocity 1.1 cm2 [employer] Phone: AV Area by VTI 0.6 cm2 [employer] Phone: AV AT 91.34 ms [employer] Phone: AV Peak Gradient 18 mmHg [employer] Phone: AV Peak Velocity 2.1 m/s [employer] Phone: AV Velocity Ratio 0.43 [employer] Phone: AV VTI 51.3 cm [facility] [employer] Work Phone: OMID/BSA Peak Velocity 0.6 cm2/m2 [facility] [employer] Phone: OMID/BSA VTI 0.4 cm2/m2 [facility] [employer] Work Phone: E/E' Lateral 10.14 [facility] [employer] Work Phone: E/E' Ratio (Averaged) 7.8 [facility] [employer] Work Phone: E/E' Septal 5.46 [facility] [employer] Phone: Est. RA Pressure 8 mmHg [facility] [employer] Phone: Fractional Shortening 2D 6 % 28 - 44 % [facility] Phone: Global Longitudinal Strain -6.8 % [facility] [employer] Phone: Interpretation and review of laboratory results Abnormal [facility] Phone: IVC Diameter 1.8 cm [facility] Phone: IVSd 1.3 cm Abnormal 0.6 - 0.9 cm [facility] [employer] Phone: LA Diameter 4.7 cm [facility] Phone: LA Size Index 2.75 cm/m2 [facility] Phone: LA Volume 2C 79 mL Abnormal 22 - 52 mL [facility] Phone: LA Volume 4C 69 mL Abnormal 22 - 52 mL [facility] Phone: LA Volume A/L 79 mL [facility] Phone: LA Volume BP 75 mL Abnormal 22 - 52 mL [facility] Phone: LA Volume Index 2C 46 mL/m2 Abnormal 16 - 34 mL/m2 [facility] Phone: LA Volume Index 4C 40 mL/m2 Abnormal 16 - 34 mL/m2 [facility] Phone: LA Volume Index A/L 46 mL/m2 16 - 34 mL/m2 [facility] [employer] Work Phone: LA Volume Index BP 44 ml/m2 Abnormal 16 - 34 ml/m2 [facility] [employer] Work Phone: Left ventricular Ejection fraction by US.2D+Calculated by biplane method of disks 20 % Abnormal 55 - 100 % [facility] [employer] Work Phone: LV E' Lateral Velocity 7 cm/s [facility] Work Phone: LV E' Septal Velocity 13 cm/s [facility] Work Phone: LV EDV A2C 131 mL [facility] [employer] Work Phone: LV EDV A4C 130 mL [facility] [employer] Work Phone: LV EDV BP 133 mL Abnormal 56 - 104 mL [facility] [employer] Work Phone: LV EDV Index A2C 77 mL/m2 [facility] [employer] Work Phone: LV EDV Index A4C 76 mL/m2 [facility] [employer] Work Phone: LV EDV Index BP 78 mL/m2 [facility] [employer] Work Phone: LV Ejection Fraction A2C 24 % [facility] [employer] Work Phone: LV Ejection Fraction A4C 13 % [facility] [employer] Work Phone: LV ESV A2C 100 mL [facility] [employer] Work Phone: LV ESV A4C 113 mL [facility] [employer] Work Phone: LV ESV BP 107 mL Abnormal 19 - 49 mL [facility] [employer] Work Phone: LV ESV Index A2C 58 mL/m2 [facility] [employer] Work Phone: LV ESV Index A4C 66 mL/m2 [facility] [employer] Work Phone: LV ESV Index BP 63 mL/m2 [facility] [employer] Work Phone: LV Mass 2D 295.6 g Abnormal 67 - 162 g [facility] [employer] Work Phone: LV Mass 2D Index 172.9 g/m2 Abnormal 43 - 95 g/m2 [facility] [employer] [facility] Phone: LV RWT Ratio 0.48 [facility] [employer] Work Phone: LVIDd 5.4 cm Abnormal 3.9 - 5.3 cm [facility] [employer] Work Phone: LVIDd Index 3.16 cm/m2 [facility] [employer] Work Phone: LVIDs 5.1 cm [facility] [employer] Work Phone: LVIDs Index 2.98 cm/m2 [facility] [employer] Work Phone: LVOT Cardiac Output 2.4 liter/minute [facility] [employer] Work Phone: LVOT Diameter 1.8 cm [facility] [employer] Work Phone: LVOT Mean Gradient 1 mmHg [facility] [employer] Work Phone: LVOT Peak Gradient 3 mmHg [facility] [employer] Work Phone: LVOT Peak Velocity 0.9 m/s [facility] [employer] Work Phone: LVOT Stroke Volume Index 18.9 mL/m2 [facility] [employer] Work Phone: LVOT SV 32.3 ml [facility] [employer] Work Phone: LVOT VTI 12.7 cm [facility] [employer] Work Phone: LVOT:AV VTI Index 0.25 [facility] [employer] Work Phone: LVPWd 1.3 cm Abnormal 0.6 - 0.9 cm [facility] [employer] Work Phone: MR VTI 194.9 cm [facility] [employer] Work Phone: MV A Velocity 0.83 m/s [facility] [employer] Work Phone: MV E Velocity 0.71 m/s [facility] [employer] Work Phone: MV E Wave Deceleration Time 162.7 ms [facility] [employer] Work Phone: MV E/A 0.86 [facility] [employer] Work Phone: MV Nyquist Velocity 36 cm/s [facility] [employer] Work Phone: MV Regurg Velocity PISA 5.6 m/s [facility] [employer] Work Phone: RA Area 4C 85.2 mL [facility] [employer] Work Phone: RA Area 4C 79.9 mL [facility] [employer] Work Phone: RV Basal Dimension 4.1 cm [facility] [employer] Work Phone: RV Free Wall Peak S' 17 cm/s [facility] [employer] Work Phone: RV Longitudinal Dimension 8.2 cm [facility] [employer] Work Phone: RV Mid Dimension 2.3 cm [facility] [employer] Work Phone: RVSP 49 mmHg [facility] [employer] Work Phone: Sinotubular Junction 2.1 cm [facility] [employer] Work Phone: TAPSE 3.4 cm 1.7 cm [facility] [employer] Work Phone: TR Max Velocity 3.21 m/s [facility] [employer] Work Phone: TR Peak Gradient 41 mmHg [facility] [employer] Work Phone: TR Peak Velocity PISA 2.7 m/s [facility] [employer] Work Phone: TR VTI 86.9 cm [facility] [employer] Work Phone: [facility] [employer] Phone: Heart Transthoracicon Left Ventricle: Left ventricle [...] CPACS Cardiology Visit Reporton Cardiology Visit Report [facility] [address] [place], [place] [address] OFFICE VISIT Date of Service: 11/14/24 MR#: [id number] Acct: [id number] Name: LINDA PERALTA Rep #: [id number] : 1945 Provider: Dr. 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 Required: No Accompanied by: Daughter Is patient in pain?: No Allergies ciprofloxacin (From Cipro) Allergy (Verified 11/14/24 09:05) Rash Penicillins Allergy (Verified 11/14/24 09:05) Rash Medications ???Medication ???Instructions ???Recorded ???Confirmed ???Type acetaminophen 500 mg tablet 1,000 mg (2 x 500 mg) PO Q6H PRN 0 04/08/20 11/14/24 Rx Pain Score 1-10 denosumab 60 mg/mL subcutaneous 60 mg subcut [id number] #1 mL 11/14/24 Rx syringe (Prolia) nitroglycerin [...] (BMI 25.0-29.9) Aortic stenosis Aortic stenosis, severe Lares's disease MVP (mitral valve prolapse) Aortic stenosis Hypokalemia Elevated serum creatinine Acute prerenal azotemia History of kidney cancer Chronic kidney disease Hypercalcemia Frequent falls Closed head injury (03/20/20) Hypoglycemia (03/20/20) Acute electrocardiogram changes Atopic dermatitis Osteopenia determined by x-ray History of pulmonary embolism jail (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 Orthostatic hypotension Chronic kidney disease, stage 3 Lares disease Essential (primary) hypertension Hyperlipidemia Recurrent deep [...] Other History of DVT (deep vein thrombosis) jail (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 Social History Smoking Status: Never smoker alcohol intake: never substance use type: does not use caffeine: Yes what type of physical activity do you participate in: walking seatbelt use: always do you feel safe at home: Yes additional social history: [place]- Re (more content not included)... Normal [facility] 36on 11-04-2024 36 Renal function stabl e. Advised to take Lasix 20 mg daily for 3 days and then re- evaluate by phone. Weight 150. BP 120 systolic, HR 70s. Mild dizziness unchanged. Breathing OK, walking more. mm Normal [facility] 36 Did you call patient RE: her lab results? Normal [facility] 29on 10-31-2024 29 Addended by: JAQUELIN MONCADA on: 10/31/2024 02:58 PM Modules accepted: Orders Normal [facility] 37on 10-31-2024 37 If weight gain great er than 3lbs/24 hours or > 5lbs in one week. Take 1/2 Lasix (furosemide) Normal [facility] BASIC METABOLIC PANELon 10-21 Anion gap [Moles/Vol] 6 mmol/L Normal 3-13 [facility] Comment on above: Performed By: #### L AB15 ####Solid State Tester: JAQUELIN RICO ([id number])[facility] ([address] Calcium [Mass/Vol] 9.4 mg/dL Normal 8.8-10.0 [facility] Comment on above: Performed By: #### L AB15 ####Solid State Tester: JAQUELIN RICO ([id number])[facility] [place] [address] Chloride [Moles/Vol] 110 mmol/L High 98-107 [facility] Comment on above: Performed By: #### L AB15 ####Solid State Tester: JAQUELIN RICO ([id number])[facility] [place] [address] CO2 [Moles/Vol] 27 mmol/L Normal 23-31 [facility] Comment on above: Performed By: #### L AB15 ####Solid State Tester: JAQUELIN RICO ([id number])[facility] ([facility])[address] [place] [address] Creatinine [Mass/Vol] 1.47 mg/dL High 0.57-1.11 [facility] Comment on above: Performed By: #### L AB15 ####Solid State Tester: JAQUELIN RICO ([id number])[facility] ([facility])[address] [place] [address] GLOMERULAR FILTRATION RATE ML/MIN/1.73 SQ M.PREDICTED 35.7 mL/min/1.73m*2 Low >60.0 [facility] Comment on above: Result Comment: Calc ulation based on the Chronic Kidney Disease Epidemiology Collaboration (CKD-EPI) equation refit without adjustment for race Performed By: #### L AB15 ####Solid State Tester: JAQUELIN RICO ([id number])[facility] ([facility])[address] [place] [address] [place] Glucose [Mass/Vol] 62 mg/dL Low 82-115 [facility] Comment on above: Performed By: #### L AB15 ####Solid State Tester: JAQUELIN RICO ([id number])[facility] ([facility])[address] [place] [address] [place] Potassium [Moles/Vol] 4.7 mmol/L Normal 3.5-5.1 [facility] Comment on above: Result Comment: [facility] potassium values may be up to 0.5 mmol/L lower than serum values. Performed By: #### L AB15 ####Solid State Tester: JAQUELIN RICO ([id number])[facility] ([facility])[address] [place] [address] Sodium [Moles/Vol] 143 mmol/L Normal 136-145 [facility] Comment on above: Performed By: #### L AB15 ####Solid State Tester: JAQUELIN RICO ([id number])[facility] ([facility] [place] [address] Urea nitrogen [Mass/Vol] 32 mg/dL High 9-23 [facility] Comment on above: Performed By: #### L AB15 ####Solid State Tester: JAQUELIN RICO ([id number])[facility] ([facility])[address] [place] [address] Basic metabolic 1998 panelon 10-31-2024 Anion gap [Moles/Vol] 6 mmol/L 3 - 13 mmol/L [facility] Calcium [Mass/Vol] 9.4 mg/dL 8.8 - 10. 0 mg/dL [facility] Chloride [Moles/Vol] 110 mmol/L High 98 - 10 7 mmol/L [facility] CO2 [Moles/Vol] 27 mmol/L 23 - 31 mmol/L [facility] Creatinine [Mass/Vol] 1.47 mg/dL High 0.57 - 1.11 mg/dL [facility] GFR/1.73 sq M.predicted (S/P/Bld) [Vol rate/Area] 35.7 mL/min Low - PINF [facility] Comment on above: Calculation based on the Chronic Kidney Disease Epidemiology Collaboration (CKD-EPI) equation refit without adjustment for race Glucose [Mass/Vol] 62 mg/dL Low 82 - 115 mg/dL [facility] Interpretation and review of laboratory results Abnormal [facility] Potassium [Moles/Vol] 4.7 mmol/L 3.5 - 5.1 mmol/L [facility] Comment on above: Plasma potassium olga lidia ues may be up to 0.5 mmol/L lower than serum values. Sodium [Moles/Vol] 143 mmol/L 136 - 145 mmol/L [facility] Urea nitrogen [Mass/Vol] 32 mg/dL High 9 - 23 mg/dL [facility] Office Visiton 10-31-2024 Follow-up visit [id number] Ingris Peralta 1945 F Date Provider Department Center 10/31/2024 [id number] JOEL [facility] [address] Family History Problem Relation Age of Onset Heart attack Mother Stroke Father Family Status - Relation Status Age at Mother Father Level of Service:71877 ID OFFICE/OUTPATIENT ESTABLISHED MOD MDM 30 MIN Reason for Visit and Comments: Cardiac Valve Problem [1334] Hospital Follow-up [832] Normal [facility] Progress Noteon 10-31-2024 Progress Note [facility] - [place] [address] [place] [address] Dept: [phone] Dept Visit type: Established : 1945 Reason for Visit: Cardiac Valve Problem and Hospital Follow-up Assessment and Plan 1. Severe aortic stenosis S/p TAVR. Contiue Eliquis, SBE prophylaxis.Echo one month 2. 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 Chronic [...] a PMH for CAD, HPL, DVT, PE, Lares's disease, CKD s/p left nephrectomy (donated) and [...] specialty: Independent interpretation of tests: Basim Joel, BROKERAGE CLERK - [employer]FER [employer] [1] Allergies Allergen Reactions Amlodipine Swelling Ciprofloxacin [...] Rfl: [3] Past Medical History: Diagnosis Date Lares anemia 2010 [4] Past Surgical History: Procedure Laterality Date BLADDER REPAIR CARDIAC CATHETERIZATION N/A 10/23/2024 Performed by Memo Canas MD at [facility] OR CYSTECTOMY (HISTORICAL) LAPAROSCOPIC NEPHRECTOMY (HISTORICAL) Left TOTAL ABDOMINAL HYSTERECTOMY [5] Family History Problem Relation Name Ag (more content not included)... Normal [facility] CNOVon 10-29-2024 CNOV Office Visit (INTMWS ) -------- LINDA PERALTA ([id number]) 1945 F Date Time Provider Department 10/29/24 10:40 AM AMOS FLOYD INTMWS During your visit today, we recorded the following information about you: Temperature Pulse Respiration Blood pressure 97.5 degrees 60/minute 20/minute 112/72 Weight 69.6 kg Amos Floyd MD 10/29/2024 12:03 PM Addendum Subjective Linda Peralta is a 79 year old female here with her daughter. She had TAVR at [facility] last week. She had some fluid retention prior to surgery and was prescribed furosemide 40 mg daily for 3 days with weight loss of around 20 pounds. She started regaining weight and was again advised 2 days of furosemide last week. Echo last week showed EF dropped to 20%. They have another echocardiogram scheduled. She has a follow up with [facility] this , and the [facility] later this month. ACTIVE PROBLEM [...] valve s (more content not included)... Normal [facility] [id number] 10-29-2024 ECG01 Ventricular Rate : 1 00 BPM Atrial Rate : 100 BPM P-R Interval : 142 ms QRS Duration : 88 ms Q-T Interval : 362 ms QTC Calculation(Bazett) : 466 ms Calculated P [employer] : 43 degrees Calculated R [employer] : -27 degrees Calculated T [employer] : 101 degrees NORMAL SINUS RHYTHM LEFT VENTRICULAR HYPERTROPHY WITH REPOLARIZATION ABNORMALITY ( R in aVL , Noel product ) ABNORMAL ECG Confirmed by MD GALLARDO QARAB ([id number]) on 10/31/2024 5:12:58 PM NAME : LINDA PERALTA PID : [id number] : 1945 Gender : Female Race : ORD : Procedure Date : Oct 29 2024 11:31:04 Edit Date : Oct 31 2024 17:19:41 Diagnosis: NORMAL SINUS RHYTHM LEFT VENTRICULAR HYPERTROPHY WITH REPOLARIZATION ABNORMALITY ( R in aVL , [place] product ) ABNORMAL ECG Confirmed by MD GALLARDO QARAB ([id number]) on 10/31/2024 5:12:58 PM Test Reason : Location : 185 : [facility] Overread By : MD GALLARDO QARAB Edited By : MD GALLARDO QARAB Referred By : Amos Floyd Acquired by : Cassandra Vieira [facility] 36on 10-28-2024 36 Per TVT registry guidelines, 5 meter walk test completed in office on 09/03/24. 7 seconds, 7 seconds, 7 seconds Normal [facility] BASIC METABOLIC PANELon 09-0 Anion gap [Moles/Vol] 7 mmol/L Normal 3-13 [facility] Comment on above: Performed By: #### L AB15 ####Solid State Tester: JAQUELIN RICO ([id number])[facility] ([facility])[address] [place] [address] Calcium [Mass/Vol] 8.2 mg/dL Low 8.8-10.0 [facility] Comment on above: Performed By: #### L AB15 ####Solid State Tester: JAQUELIN RICO ([id number])[facility] ([facility])[address] [place] [address] [place] Chloride [Moles/Vol] 111 mmol/L High 98-107 [facility] Comment on above: Performed By: #### L AB15 ####Solid State Tester: JAQUELIN RICO ([id number])[facility])[address] [place] [address] CO2 [Moles/Vol] 18 mmol/L Low 23-31 [facility] Comment on above: Performed By: #### L AB15 ####Solid State Tester: JAQUELIN RICO ([id number])[facility] ([facility])[address] [place] [address] Creatinine [Mass/Vol] 1.57 mg/dL High 0.57-1.11 [facility] Comment on above: Performed By: #### L AB15 ####Solid State Tester: JAQUELIN RICO ([id number])[facility])[address] [place] [address] [place] GLOMERULAR FILTRATION RATE ML/MIN/1.73 SQ M.PREDICTED 33.0 mL/min/1.73m*2 Low >60.0 [facility] Comment on above: Result Comment: Calc ulation based on the Chronic Kidney Disease Epidemiology Collaboration (CKD-EPI) equation refit without adjustment for race Performed By: #### L AB15 ####Solid State Tester: JAQUELIN RICO ([id number])[facility])[address] [place] [address] Glucose [Mass/Vol] 108 mg/dL Normal 82-115 [facility] Comment on above: Performed By: #### L AB15 ####Solid State Tester: JAQUELIN [id number])[facility] ([facility])[address] [place] [address] Potassium [Moles/Vol] 4.4 mmol/L Normal 3.5-5.1 [facility] Comment on above: Result Comment: [facility] potassium values may be up to 0.5 mmol/L lower than serum values. Performed By: #### L AB15 ####Solid State Tester: JAQUELIN RICO ([id number])[facility] ([facility])[address] [place] [address] Sodium [Moles/Vol] 136 mmol/L Normal 136-145 [facility] Comment on above: Performed By: #### L AB15 ####Solid State Tester: JAQUELIN RICO ([id number])[facility])[address] [place] [address] Urea nitrogen [Mass/Vol] 38 mg/dL High 9-23 [facility] Comment on above: Performed By: #### L AB15 ####Solid State Tester: JAQUELIN RICO ([id number])[facility])[address] [place] [address] Basic metabolic 1998 panelon 10-24-2024 Anion gap [Moles/Vol] 7 mmol/L 3 - 13 mmol/L [facility] Calcium [Mass/Vol] 8.2 mg/dL Low 8.8 - 10. 0 mg/dL [facility] Chloride [Moles/Vol] 111 mmol/L High 98 - 10 7 mmol/L [facility] CO2 [Moles/Vol] 18 mmol/L Low 23 - 31 mmol/L [facility] Creatinine [Mass/Vol] 1.57 mg/dL High 0.57 - 1.11 mg/dL [facility] GFR/1.73 sq M.predicted (S/P/Bld) [Vol rate/Area] 33 mL/min Low - PINF [facility] Comment on above: Calculation based on the Chronic Kidney Disease Epidemiology Collaboration (CKD-EPI) equation refit without adjustment for race Glucose [Mass/Vol] 108 mg/dL 82 - 115 mg/dL [facility] Interpretation and review of laboratory results Abnormal [facility] Potassium [Moles/Vol] 4.4 mmol/L 3.5 - 5.1 mmol/L [facility] Comment on above: Plasma potassium olga lidia ues may be up to 0.5 mmol/L lower than serum values. Sodium [Moles/Vol] 136 mmol/L 136 - 145 mmol/L [facility] Urea nitrogen [Mass/Vol] 38 mg/dL High 9 - 23 mg/dL [facility] CBC (HEMOGRAM)on 10-24-2024 Erythrocyte distribution width (RBC) [Ratio] 15.1 % High 11.5-15.0 [facility] Comment on above: Performed By: #### L [id number] ####Solid State Tester: JAQUELIN RICO ([id number])[facility])[address] [place] [address] Hematocrit (Bld) [Volume fraction] 40.3 % Normal 35.0-47.0 [facility] Comment on above: Performed By: #### L [id number] ####Solid State Tester: JAQUELIN RICO ([id number])[facility])[address] [place] [address] Hemoglobin (Bld) [Mass/Vol] 12.8 g/dL Normal 11.7-16.0 [facility] Comment on above: Performed By: #### L [id number] ####Solid State Tester: JAQUELIN RICO ([id number])[facility])[address] [place] [address] MCH (RBC) [Entitic mass] 29.3 pg Normal 26.0-34.0 [facility] Comment on above: Performed By: #### L [id number] ####Solid State Tester: JAQUELIN RICO ([id number])[facility])[address] [place] [address] MCHC 31.8 % Normal 30.5-36.0 [facility] Comment on above: Performed By: #### L [id number] ####Solid State Tester: JAQUELIN RICO ([id number])[facility])[address] [place] [address] MCV (RBC) [Entitic vol] 92.2 fL Normal 77.0-99.0 [facility] Comment on above: Performed By: #### L [id number] ####Solid State Tester: JAQUELIN RICO ([id number])[facility])[address] [place] [address] Platelet mean volume (Bld) [Entitic vol] 12.5 fL Normal 9.0-12.7 [facility] Comment on above: Performed By: #### L [id number] ####Solid State Tester: JAQUELIN RICO ([id number])[facility] ([facility])[address] [place] [address] Platelets (Bld) [#/Vol] 132 10*3/uL Low 140-440 [facility] Comment on above: Performed By: #### L [id number] ####Solid State Tester: JAQUELIN RICO ([id number])[facility])[address] [place] [address] RBC (Bld) [#/Vol] 4.37 10*6/uL Normal 3.80-5.20 [facility] Comment on above: Performed By: #### L [id number] ####Solid State Tester: JAQUELIN RICO ([id number])[facility])[address] [place] [address] WBC (Bld) [#/Vol] 9.6 10*3/uL Normal 3.6-10.7 [facility] Comment on above: Performed By: #### L [id number] ####Solid State Tester: JAQUELIN RICO ([id number])[facility])[address] [place] [address] CBC panel Auto (Bld)on 10-24 Erythrocyte distribution width (RBC) [Ratio] 15.1 % High 11.5 - 15.0 % [facility] Hematocrit (Bld) [Volume fraction] 40.3 % 35.0 - 47.0 % [facility] Hemoglobin (Bld) [Mass/Vol] 12.8 g/dL 11.7 - 16.0 g/dL [facility] Interpretation and review of laboratory results Abnormal [facility] MCH (RBC) [Entitic mass] 29.3 pg 26.0 - 34.0 pg [employer] MCHC (RBC) [Mass/Vol] 31.8 % 30.5 - 36.0 % [employer] [facility] MCV (RBC) [Entitic vol] 92.2 fL 77.0 - 99.0 fL [facility] Platelet mean volume (Bld) [Entitic vol] 12.5 fL 9.0 - 12.7 fL [facility] Platelets (Bld) [#/Vol] 132 10*3/uL Low 140 - 440 10*3/uL [facility] RBC (Bld) [#/Vol] 4.37 10*6/uL 3.80 - 5.2 0 10*6/uL [facility] WBC (Bld) [#/Vol] 9.6 10*3/uL 3.6 - 10.7 10*3/uL [facility] ECG 12-LEADon 10-24-2024 ECG 12-LEAD IMPRESSION: Sinus rhythm Atrial premature complex Probable left atrial enlargement Nonspecific T wave changes Electronically Signed On 10-24-2024 15:16:18 EDT by Frandy Mccoy Normal [facility] No Panel InformationOrdered By: Frandy Mccoy on 10-24-[address]24 [address] [employer] 61 degrees [employer] Work Phone: ID Interval 145 ms [employer] Work Phone: QRS [employer] [place] 2 degrees [employer] Work Phone: QRSD Interval 89 ms [employer] Phone: QT Interval 371 ms [employer] Work Phone: QTC Interval 445 ms [employer] Work Phone: T Wave [employer] 142 degrees [employer] Work Phone: [employer] Work Phone: No Panel Informationon 10-24 Sinus rhythm Atrial premature complex Probable left atrial enlargement Nonspecific T wave changes Electronically Signed On 10-24-2024 15:16:18 EDT by Frandy Mccoy CV Frandy Vanessa M D - 10/24/2024 IMPRESSION: Sinus rhythm Atrial premature complex Probable left atrial enlargement Nonspecific T wave changes Electronically Signed On 10-24-2024 15:16:18 EDT by Frandy Mccoy [facility] Nursing Noteon 10-24-2024 Nursing Note All discharge instructions gone over with pt and family. Med rec revoewed in depth. All restrictions, activity, site care and precautions gone over along with appointments. Saline lock removed. To daughters car via wheelchair, discharged home. Normal [facility] Nursing Note Pt had a restful nig ht and even got up the the bathroom during the night with standby assist. Pt is up in a chair eating her Breakfast. Normal [facility] Progress Noteon 10-24-2024 Progress Note Physician Response Please review the following and provide your response below. Please clarify which of the following accurately describes the patient's CKD Stage: CKD Stage 3 (GFR 30-59) This documentation will become part of the patient's medical record. Normal [facility] Progress Note PHYSICAL THERAPY [facility] Name/MRN: Linda Peralta ([id number]) Date: 10/24/2024 PT orders received per Oniel activity/mobility score. Patient currently with Oniel activity/mobility score greater than 2. Per therapy services guidelines, will discharge PT orders. Please place regular PT eval/treat orders if deemed appropriate. Shea Perez, PT Normal [facility] US Heart TransthoracicOrdere d By: Jefferson Adorno on 10-24-2024 Aortic Sinus Valsalva 3.1 cm [employer] Phone: Aortic Sinus Valsalva Index 1.86 cm/m2 [employer] Phone: Aortic valve Mean systole pressure gradient by US.doppler derived full Bernoulli 5 mmHg [employer] Phone: Aortic valve Orifice area by US 3.1 cm2 [employer] Phone: Aortic valve Peak systolic flow by US.doppler 1.1 m/s [employer] Phone: Ascending Aorta 3.4 cm [employer] Phone: [phone] Ascending Aorta Index 2.04 cm/m2 [employer] Phone: AV Area by Peak Velocity 1.7 cm2 [employer] Phone: AV Area by VTI 1.5 cm2 [facility] [employer] Work Phone: AV AT 79.92 ms [facility] [employer] Work Phone: AV Peak Gradient 9 mmHg [facility] [employer] Work Phone: AV Peak Velocity 1.5 m/s [facility] [employer] Work Phone: AV Velocity Ratio 0.53 [facility] [employer] Work Phone: AV VTI 28.2 cm [facility] [employer] Work Phone: OMID/BSA Peak Velocity 1 cm2/m2 [facility] Work Phone: OMID/BSA VTI 0.9 cm2/m2 [facility] Work Phone: E/E' Lateral 17 [facility] [employer] Work Phone: E/E' Ratio (Averaged) 14.57 [facility] Work Phone: E/E' Septal 12.14 [facility] [employer] Work Phone: Est. RA Pressure 8 mmHg [facility] Work Phone: Fractional Shortening 2D 10 % 28 - 44 % [facility] Work Phone: Global Longitudinal Strain -9.4 % [facility] [employer] Work Phone: [phone] Interpretation and review of laboratory results Abnormal [facility] Work Phone: IVC Diameter 2.5 cm [facility] Work Phone: IVSd 1 cm Abnormal 0.6 - 0.9 cm [facility] Work Phone: LA Volume 2C 82 mL Abnormal 22 - 52 mL [facility] Work Phone: LA Volume 4C 49 mL 22 - 52 mL [facility] Work Phone: LA Volume A/L 68 mL [facility] [employer] Work Phone: LA Volume BP 63 mL Abnormal 22 - 52 mL [facility] Work Phone: LA Volume Index 2C 49 mL/m2 Abnormal 16 - 34 mL/m2 [facility] Work Phone: LA Volume Index 4C 29 mL/m2 16 - 34 mL/m2 [employer] [facility] Work Phone: LA Volume Index A/L 41 mL/m2 16 - 34 mL/m2 [facility] Work Phone: LA Volume Index BP 38 ml/m2 Abnormal 16 - 34 ml/m2 [facility] Work Phone: Left ventricular Ejection fraction by US.2D+Calculated by biplane method of disks 18 % Abnormal 55 - 100 % [employer] [facility] Work Phone: LV E' Lateral Velocity 5 cm/s [facility] Work Phone: LV E' Septal Velocity 7 cm/s [facility] Work Phone: LV EDV A2C 186 mL [facility] Work Phone: LV EDV A4C 183 mL [facility] Work Phone: LV EDV BP 190 mL Abnormal 56 - 104 mL [employer] Work Phone: LV EDV Index A2C 111 mL/m2 [employer] Work Phone: LV EDV Index A4C 110 mL/m2 [employer] Work Phone: LV EDV Index BP 114 mL/m2 [employer] Work Phone: LV Ejection Fraction A2C 21 % [employer] Work Phone: LV Ejection Fraction A4C 10 % [facility] Work Phone: LV ESV A2C 147 mL [employer] Work Phone: LV ESV A4C 164 mL [employer] Work Phone: LV ESV BP 157 mL Abnormal 19 - 49 mL [employer] Work Phone: LV ESV Index A2C 88 mL/m2 [employer] Work Phone: LV ESV Index A4C 98 mL/m2 [facility] Work Phone: LV ESV Index BP 94 mL/m2 [facility] Work Phone: LV Mass 2D 218.1 g Abnormal 67 - 162 g [employer] Work Phone: LV Mass 2D Index 130.6 g/m2 Abnormal 43 - 95 g/m2 [facility] [employer] Work Phone: LV RWT Ratio 0.31 [facility] [employer] Work Phone: LVIDd 5.8 cm Abnormal 3.9 - 5.3 cm [facility] [employer] Work Phone: LVIDd Index 3.47 cm/m2 [facility] [employer] Work Phone: LVIDs 5.2 cm [facility] Work Phone: LVIDs Index 3.11 cm/m2 [facility] [employer] Work Phone: LVOT Cardiac Output 3.6 liter/minute [facility] Work Phone: LVOT Diameter 2 cm [facility] [employer] Work Phone: LVOT Mean Gradient 2 mmHg [facility] [employer] Work Phone: LVOT Peak Gradient 3 mmHg [facility] [employer] Work Phone: LVOT Peak Velocity 0.8 m/s [facility] [employer] Work Phone: LVOT Stroke Volume Index 24.6 mL/m2 [facility] [employer] Work Phone: LVOT SV 41.1 ml [facility] [employer] Work Phone: LVOT VTI 13.1 cm [facility] [employer] Work Phone: LVOT:AV VTI Index 0.46 [facility] [employer] Work Phone: LVPWd 0.9 cm 0.6 - 0.9 cm [facility] [employer] Work Phone: MR VTI 177.7 cm [facility] [employer] Work Phone: MV A Velocity 1.28 m/s [facility] [employer] Work Phone: MV E Velocity 0.85 m/s [facility] [employer] Work Phone: MV E Wave Deceleration Time 140.6 ms [facility] [employer] Work Phone: MV E/A 0.66 [facility] [employer] Work Phone: MV Nyquist Velocity 36 cm/s [facility] [employer] Work Phone: [phone] MV Regurg Velocity PISA 5.6 m/s [facility] [employer] Phone: [phone] RA Area 4C 59.8 mL [facility] [employer] Work Phone: [phone] RA Area 4C 59.1 mL [facility] [employer] Work Phone: [phone] RV Basal Dimension 3.8 cm [facility] [employer] Work Phone: [phone] RV Free Wall Peak S' 13 cm/s [facility] [employer] Work Phone: [phone] RV Longitudinal Dimension 8.5 cm [facility] [employer] Phone: [phone] RV Mid Dimension 2.1 cm [facility] [employer] Phone: [phone] RVSP 58 mmHg [facility] [employer] Phone: [phone] Sinotubular Junction 2.1 cm [facility] [employer] Work Phone: [phone] TAPSE 2.3 cm 1.7 cm [facility] [employer] Phone: [phone] TR Max Velocity 3.55 m/s [facility] [employer] Phone: [phone] TR Peak Gradient 51 mmHg [facility] [employer] Phone: [phone] [facility] [employer] Phone: [phone] Heart Transthoracicon Left Ventricle: [...] on 10-24-2024 Heart rate 89 /min bpm [facility] Work Phone: BASIC METABOLIC PANELon Anion gap [Moles/Vol] 8 mmol/L Normal 3-13 [facility] Comment on above: Performed By: #### L AB15 #### Solid State Tester: JAQUELIN RICO ([id number]) [facility] ([facility]) [address] [place] [address] Calcium [Mass/Vol] 7.9 mg/dL Low 8.8-10.0 [facility] Comment on above: Performed By: #### L AB15 #### Solid State Tester: JAQUELIN RICO ([id number]) [facility] [address] [place] [address] Chloride [Moles/Vol] 113 mmol/L High 98-107 [facility] Comment on above: Performed By: #### L AB15 #### Solid State Tester: JAQUELIN RICO ([id number]) [facility] ([facility]) [address] [place] [address] CO2 [Moles/Vol] 18 mmol/L Low 23-31 [facility] Comment on above: Performed By: #### L AB15 #### Solid State Tester: JAQUELIN RICO ([id number]) [facility] ([facility]) [address] [place] [address] Creatinine [Mass/Vol] 1.47 mg/dL High 0.57-1.11 [facility] Comment on above: Performed By: #### L AB15 #### Solid State Tester: JAQUELIN [id number]) [facility] ([facility]) [address] [place] [address] [place] GLOMERULAR FILTRATION RATE ML/MIN/1.73 SQ M.PREDICTED 35.7 mL/min/1.73m*2 Low >60.0 [facility] Comment on above: Result Comment: Calc ulation based on the Chronic Kidney Disease Epidemiology Collaboration (CKD-EPI) equation refit without adjustment for race Performed By: #### L AB15 #### Solid State Tester: JAQUELIN RICO ([id number]) [facility] ([facility]) [address] [place] [address] Glucose [Mass/Vol] 134 mg/dL High 82-115 [facility] Comment on above: Performed By: #### L AB15 #### Solid State Tester: JAQUELIN RICO ([phone]) [facility]) [address] [place] [address] Potassium [Moles/Vol] 4.0 mmol/L Normal 3.5-5.1 [facility] Comment on above: Result Comment: [facility] potassium values may be up to 0.5 mmol/L lower than serum values. Performed By: #### L AB15 #### Solid State Tester: JAQUELIN RICO ([id number]) [facility] ([facility]) [address] [place] [address] Sodium [Moles/Vol] 139 mmol/L Normal 136-145 [facility] Comment on above: Performed By: #### L AB15 #### Solid State Tester: JAQUELIN RICO ([id number]) [facility]) [address] [place] [address] Urea nitrogen [Mass/Vol] 34 mg/dL High 9-23 [facility] Comment on above: Performed By: #### L AB15 #### Solid State Tester: JAQUELIN RICO ([id number]) [facility]) [address] [place] [address] BLOOD TYPE AND SCREEN GELon 10-23-2024 ABO GROUPING O Normal [facility] Comment on above: Performed By: #### L [id number] ####Solid State Tester: JAQUELIN [id number])[facility] ([facility])[address] [place] [address] RH TYPE IN BLOOD Positive Normal [facility] Comment on above: Performed By: #### L AB276 ####Solid State Tester: JAQUELIN RICO ([id number])[facility] ([facility])[address] [id number] [facility] Basic metabolic 1998 panelon 10-23-2024 Anion gap [Moles/Vol] 8 mmol/L 3 - 13 mmol/L [facility] Calcium [Mass/Vol] 7.9 mg/dL Low 8.8 - 10. 0 mg/dL [facility] Chloride [Moles/Vol] 113 mmol/L High 98 - 10 7 mmol/L [facility] CO2 [Moles/Vol] 18 mmol/L Low 23 - 31 mmol/L [facility] Creatinine [Mass/Vol] 1.47 mg/dL High 0.57 - 1.11 mg/dL [facility] GFR/1.73 sq M.predicted (S/P/Bld) [Vol rate/Area] 35.7 mL/min Low - PINF [facility] Comment on above: Calculation based on the Chronic Kidney Disease Epidemiology Collaboration (CKD-EPI) equation refit without adjustment for race Glucose [Mass/Vol] 134 mg/dL High 82 - 115 mg/dL [facility] Interpretation and review of laboratory results Abnormal [facility] Potassium [Moles/Vol] 4 mmol/L 3.5 - 5.1 mmol/L [facility] Comment on above: Plasma potassium olga lidia ues may be up to 0.5 mmol/L lower than serum values. Sodium [Moles/Vol] 139 mmol/L 136 - 145 mmol/L [facility] Urea nitrogen [Mass/Vol] 34 mg/dL High 9 - 23 mg/dL [facility] Blood type and Crossmatch pa dee dee (Bld)on 10-23-2024 ABO group Nom (Bld) O [facility] Blood group antibody screen GEL Ql Negative [facility] D Ag Ql (RBC) Positive [facility] CBC (HEMOGRAM)on 10-23-2024 Erythrocyte distribution width (RBC) [Ratio] 15.1 % High 11.5-15.0 [facility] Comment on above: Performed By: #### L AB294 ####Solid State Tester: JAQUELIN RICO ([id number])[facility] ([facility])[address] [place] [address] Hematocrit (Bld) [Volume fraction] 39.7 % Normal 35.0-47.0 [facility] Comment on above: Performed By: #### L AB294 ####Solid State Tester: JAQUELIN RICO ([id number])[facility])[address] [place] [address] Hemoglobin (Bld) [Mass/Vol] 12.4 g/dL Normal 11.7-16.0 [facility] Comment on above: Performed By: #### L AB294 ####Solid State Tester: JAQUELIN RICO ([id number])[facility])[address] [place] [address] MCH (RBC) [Entitic mass] 29.7 pg Normal 26.0-34.0 [facility] Comment on above: Performed By: #### L AB294 ####Solid State Tester: JAQUELIN RICO ([id number])[facility] ([facility])[address] [place] [address] MCHC 31.2 % Normal 30.5-36.0 [facility] Comment on above: Performed By: #### L AB294 ####Solid State Tester: JAQUELIN RICO ([id number])[facility])[address] [place] [address] MCV (RBC) [Entitic vol] 95.0 fL Normal 77.0-99.0 [facility] Comment on above: Performed By: #### L AB294 ####Solid State Tester: JAQUELIN RICO ([id number])[facility])[address] [place] [address] Platelet mean volume (Bld) [Entitic vol] 12.6 fL Normal 9.0-12.7 [facility] Comment on above: Performed By: #### L AB294 ####Solid State Tester: JAQUELIN RICO ([id number])[facility])[address] [place] [address] [place] Platelets (Bld) [#/Vol] 119 10*3/uL Low 140-440 [facility] Comment on above: Performed By: #### L AB294 ####Solid State Tester: JAQUELIN RICO ([id number])[facility])[address] [place] [address] RBC (Bld) [#/Vol] 4.18 10*6/uL Normal 3.80-5.20 [facility] Comment on above: Performed By: #### L AB294 ####Solid State Tester: JAQUELIN RICO ([id number])[facility] ([facility])[address] [place] [address] WBC (Bld) [#/Vol] 8.5 10*3/uL Normal 3.6-10.7 [facility] Comment on above: Performed By: #### L AB294 ####Solid State Tester: JAQUELIN RICO ([id number])[facility] ([facility])[address] [place] [address] CBC panel Auto (Bld)Ordered By: Janay Wood on 10-23-2024 Erythrocyte distribution width (RBC) [Ratio] 15.1 % High 11.5 - 15.0 % [facility] Hematocrit (Bld) [Volume fraction] 39.7 % 35.0 - 47.0 % [facility] Hemoglobin (Bld) [Mass/Vol] 12.4 g/dL 11.7 - 16.0 g/dL [facility] Interpretation and review of laboratory results Abnormal [facility] MCH (RBC) [Entitic mass] 29.7 pg 26.0 - 34.[address] [facility] MCHC (RBC) [Mass/Vol] 31.2 % 30.5 - 36.0 % [facility] MCV (RBC) [Entitic vol] 95 fL 77.0 - 99.[address] [facility] Platelet mean volume (Bld) [Entitic vol] 12.6 fL 9.0 - 12.[address] [facility] Platelets (Bld) [#/Vol] 119 10*3/uL Low 140 - 440 10*3/uL [facility] RBC (Bld) [#/Vol] 4.18 10*6/uL 3.80 - 5.2 0 10*6/uL [facility] WBC (Bld) [#/Vol] 8.5 10*3/uL 3.6 - 10.7 10*3/uL [facility] Cardiac catheterization stud yon 10-23-2024 Successful [...] Via the right IJ vein, a 6 Tristanian sheath was placed and temporary pacing wire was placed into the RV apex with appropriate capture, in addition sterile tubing was attached and given the anesthesia for central access. Via radial artery artery, a 6-Tristanian sheath was placed and the pigtail catheter was placed into the aortic annulus with confirmation the implant angle. Via the right femoral artery, a 6-Tristanian sheath was placed. The patient was then heparinized. Next, two Perclose devices were used using the pre-close strategy. A Super Stiff wire was then placed through the second Perclose into the descending aorta. Then, a 14-Tristanian Phong E-sheath was introduced over the wire [...] care of your patient while hospitalized at [facility]. I will continue to follow along while hospitalized. Please do not hesitate to call with any questions. [employer] Cardiac catheterization stud yOrdered By: Memo Canas on 10-23-2024 [employer] Phone: ECG 12-LEADon 10-23-2024 ECG 12-LEAD IMPRESSION: Sinus rhythm Left atrial enlargement Nonspecific T wave changes Borderline prolonged QT interval No previous ECG available for comparison Electronically Signed On 10-23-2024 11:58:19 EDT by Antonia Neumann Normal [employer] System [facility] No Panel InformationOrdered By: Antonia Neumann on 10-23-2024 [address] [place] 66 degrees [employer] Phone: ID Interval 153 ms [employer] Phone: QRS [place] 7 degrees [employer] Phone: QRSD Interval 100 ms [employer] Phone: QT Interval 427 ms [employer] Phone: QTC Interval 491 ms [employer] Phone: T Wave [place] 170 degrees [employer] Phone: [employer] Phone: No Panel Informationon 10-23 Sinus rhythm [...] On 10-23-2024 11:58:19 EDT by Antonia Neumann [facility] [employer] Interpretation and review of laboratory results Abnormal [employer] POCT ACT 320 High [employer] Performed by: [facility], [address] [place] [address], [place] [address] CLIA ID: [id number] [employer] Informed [employer] Blood Expiration Date [id number] S [facility] [employer] Crossmatch interpretation COMP [employer] Dispense Status Crossmatch [employer] Product Blood Type 5100 [employer] PRODUCT CODE [id number] [employer]a Health Unit ABO O [email or web address] [facility] Number [id number] [employer] Health Unit Number [id number] [email or web address] [facility] RH Positive [employer] Unit Volume 300 mL [employer] Op Noteon 10-23-2024 Op Note CARDIOTHORACIC SURGERY--OPERATIVE NOTE Date: 10/23/24 Preoperative diagnosis: Severe symptomatic aortic stenosis Chronic diastolic congestive heart failure Frailty Postoperative diagnosis: Severe symptomatic aortic stenosis Chronic diastolic congestive heart failure Frailty Surgeon: Rocky Self DO [employer] Supervisor: Memo Canas MD Procedure: Transcatheter aortic valve [...] Rocky Self DO FACS Cardiothoracic Surgery Normal [facility] Progress Noteon 10-23-[address] Canas contacted about pre-procedure steroid not ordered. No new orders at this time for 30 case. Normal [facility] Progress Note X-ray to bedside Normal [facility] Progress Note Called for chest X-RAY Normal [facility] US Heart TransthoracicOrdere d By: Marcin Echeverria on 10-23-2024 Aortic valve Mean systole pressure gradient by US.doppler derived full Bernoulli 3 mmHg [facility] Phone: [phone] Ascending Aorta 3.2 cm [facility] [employer] Phone: [phone] Ascending Aorta Index 1.84 cm/m2 [facility] [employer] Phone: [phone] AV Area (Pre-TAVR) 0.6 cm2 [facility] [employer] Phone: [phone] AV Area by Peak Velocity 0.7 cm2 [facility] [employer] Phone: [phone] AV Area by VTI 0.6 cm2 [facility] Phone: [phone] AV Mean Gradient (Pre-TAVR) 25 mmHg [facility] Phone: [phone] AV Peak Gradient (Pre-TAVR) 15 mmHg [facility] Phone: [phone] AV Peak Velocity (Pre-TAVR) 2.5 m/s [employer] Phone: [phone] OMID/BSA Peak Velocity 0.4 cm2/m2 [facility] [employer] Phone: OMID/BSA VTI 0.3 cm2/m2 [facility] Phone: [phone] Est. RA Pressure 8 mmHg [facility] Phone: [phone] [facility] Cardiac Output 2.7 liter/minute [facility] [employer] Phone: LVOT Mean Gradient 1 mmHg [facility] Phone: [phone] LVOT Peak Gradient 1 mmHg [facility] Phone: [phone] LVOT Peak Velocity 0.6 m/s [facility] Phone: [phone] LVOT VTI 10 cm [facility] Phone: MR VTI 169.2 cm [facility] Phone: [phone] MV Nyquist Velocity 36 cm/s [facility] Phone: [phone] MV Regurg Velocity PISA 5.3 m/s [facility] Phone: RVSP 50 mmHg [facility] Phone: TR Max Velocity 3.25 m/s [employer] Phone: TR Peak Gradient 42 mmHg [facility] Phone: [employer] Phone: Heart Transthoracicon Left Ventricle: Left ventricle [...] on 10-23-2024 Heart rate 79 /min bpm [employer] Work Phone: XR CHEST 1 VIEWon 10-23-2024 [...] Electronically Signed Date/Time: 10/23/2024 10:[address] [facility] XR Chest Single viewon 10-23 1. Prominence of the cardiac silhouette. 2. Apparent small bilateral pleural effusions. Report Dictated on Electronically Signed By: Arelis Arauz MD Electronically Signed Date/Time: 10/23/2024 10:03 AM EDT [facility] Patient Name: LINDA TEJADA : 1945 [...] fracture. VASCULATURE: Calcification of the thoracic aorta. [facility] Arelis Arauz M D - 10/23/2024 [...] Electronically Signed Date/Time: 10/23/2024 10:03 AM EDT [facility] Radiology Study observation (narrative) [facility] XR Chest Single viewOrdered By: Arelis Arauz on 10-23-[address] [facility] Work Phone: 36on 10-22-2024 36 Letter refaxed to [phone] along chris/ Kishore chart note. Confirmation 10/16/24 at 3:07p Confirmed 10/22/2024 at 3:59p [place] [address] Gregory 's office to follow-up on IV hydrocortisone dosing. Did not receive fax from last week, confirmed number of [phone]. Requested patient will need to have telephone visit at [address] Gregory to review instructions. Requested to have OV note and letter re-faxed to the above number. Will provide valve clinic fax number so Dr. Gregory's office can fax recommendations back [place] [address] Approved per fax. Scanned in under Media. Approval [id number] Sched on all 3 calendars and requested on Snapboard. [facility] 36on 10-18-2024 36 Labs scanned under Media [place] [address] Requested lab from [place]. She is faxing them to [address]. [facility] 36on 10-17-2024 36 Pending on Availity using [employer] telephone visit from yesterday. Pending# [id number] [facility] 36on 10-16-2024 36 Letter and Kishore valdez note faxed to [phone] and confirmed Normal [facility] [address] Marco A gore Requesting fax regarding medication recommendation sent to [phone]. Will discuss with Jo Levy. Normal [facility] [address] Marco A major Placed on hold and disconnected. Will try again later. Normal [facility] 36 Reviewed plan for bridging with [facility] pharmacist. Patient's CrCl is 31. She advised lovenox 40 mg BID for bridging. -patient will take last dose of Eliquis on 10/19/24 -starting on 10/20/24, patient will start lovenox 40 mg BID -she will take her last dose of lovenox morning of 10/22. -No lovenox the evening of 10/22 or morning of 10/[address] [facility] Progress Noteon 10-16-2024 Progress Note [facility] Telehealth Cardiology Note DATE of SERVICE: 10/16/24 TIME of SERVICE: 12:45 PM Chief Complaint: Chief Complaint Patient presents with Follow-up History of Present Illness: Linda Peralta is a 79 y.o. female known to Dr. Marte with a history for CAD, HPL, DVT, PE, Lares's disease, CKD s/p left nephrectomy (donated) and [...] dyspnea with moderate activity. No CAD per [facility]. Weight 156 lbs. Last clinic visit Telehealth [...] redirect to the Timeline version of the [employer]. Limited Telehealth exam Constitutional: [x]Alert [x]Oriented [...] or 3b CKD (HCC) CKD followed by fire information officer Dr. Tarango in [place]. Most recent BMP showed SCr 1.61 with CrCl 31. 3. Acute deep vein thrombosis (DVT) of right lower extremity, unspecified vein (HCC) Questionable IVC filter. Currently on Eliquis. Per daughter, LE edema has improved. Post TAVR, will refer patient to Dr. Gaffney-vascular. We reached out to [facility] clinic for recommendations on bridging. Will stop [...] a day for 2 days only. 5. Lares's disease (HCC) Patient is currently taking hydrocortisone (Cortef) 10 mg TID. Will reach out to political aide Dr. Gregory in [place] ([phone]). for recommendations on IV hydrocortisone prior to [...] patient de (more content not included)... Normal [facility] 36on 10-15-2024 36 Lab order faxed to [place] lab [phone]/confirmed Normal [facility] 36 I need PB to please finish his chart note so I can submit this auth Normal [facility] Anion gap in Serum or Plasma on 10-15-2024 Anion gap [Moles/Vol] 12 mmol/L 5-15 [facility] BUN/creatinine ratioon 10-15 Urea nitrogen/Creatinine [Mass ratio] 20.3 mg/mg High 10-20 [facility] Basic Metabolic Profile (BMP )on 10-15-2024 BUN/CRE 20.3 RATIO High 10-20 [facility] Comment on above: Performed By: #### L 9200.0000 #### [facility] [address] [place], [address] Calcium [Mass/Vol] 9.5 mg/dL Normal 7.6-11.0 [facility] Comment on above: Performed By: #### L 9200.0000 #### [facility] [address] [place], [address] Chloride [Moles/Vol] 109 mmol/L High 98-108 [facility] Comment on above: Performed By: #### L 9200.0000 #### [facility] [address] [place], [address] CO2 [Moles/Vol] 20.9 mmol/L Low 21.0-32.0 [facility] Comment on above: Performed By: #### L 9200.0000 #### [facility] [address] [place], [address] Creatinine [Mass/Vol] 1.61 mg/dL High 0.70-1.20 [facility] Comment on above: Performed By: #### L 9200.0000 #### [facility] [address] [place], [address] GAP 12 Normal 5-15 [facility] Comment on above: Performed By: #### L 9200.0000 #### [facility] [address] [place], [address] GFR/1.73 sq M.predicted among non-blacks MDRD (S/P/Bld) [Vol rate/Area] 32 mL/min/{1.73_m2} Low >60 [facility] Comment on above: Result Comment: mL/m in/1.73m2 CKD-EPI Creatinine Equation (2020) Performed By: #### L 9200.0000 #### [facility] [address] [place], [address] Glucose [Mass/Vol] 101 mg/dL High 70-99 [facility] Comment on above: Performed By: #### L 9200.0000 #### [facility] [address] [place], [address] Potassium [Moles/Vol] 4.8 mmol/L Normal 3.3-5.1 [facility] Comment on above: Performed By: #### L 9200.0000 #### [facility] [address] [place], [address] Sodium [Moles/Vol] 142 mmol/L Normal 133-145 [facility] Comment on above: Performed By: #### L 9200.0000 #### [facility] [address] [place], [address] Urea nitrogen [Mass/Vol] 33 mg/dL High 4-19 [facility] Comment on above: Performed By: #### L 9200.0000 #### [facility] [address] [place], [address] CBC-Complete Blood Cnt No Di ffon 10-15-2024 Erythrocyte distribution width (RBC) [Ratio] 15.2 % High 11.6-14.6 [facility] Comment on above: Performed By: #### L 9200.0000 #### [facility] [address] [place], [address] Hematocrit (Bld) [Volume fraction] 47.1 % High 37-47 [facility] Comment on above: Performed By: #### L 9200.0000 #### [facility] [address] [place], [address] Hemoglobin (Bld) [Mass/Vol] 14.9 g/dL Normal 12.0-15.0 [facility] Comment on above: Performed By: #### L 9200.0000 #### [facility] [address] [place], [address] MCH (RBC) [Entitic mass] 29.9 pg Normal 27.0-32.0 [facility] Comment on above: Performed By: #### L 9200.0000 #### [facility] [address] [place], [address] MCHC (RBC) [Mass/Vol] 31.6 g/dL Low 32-36 [facility] Comment on above: Performed By: #### L 9200.0000 #### [facility] [address] [place], [address] MCV (RBC) [Entitic vol] 94.4 fL Normal 81-99 [facility] Comment on above: Performed By: #### L 9200.0000 #### [facility] [address] [place], [address] Platelet mean volume (Bld) [Entitic vol] 12.8 fL High 6.2-12.0 [facility] Comment on above: Performed By: #### L 9200.0000 #### [facility] [address] [place], [address] Platelets (Bld) [#/Vol] 179 10*3/uL Normal 150-450 [facility] Comment on above: Performed By: #### L 9200.0000 #### [facility] [address] [place], [address] RBC (Bld) [#/Vol] 4.99 10*6/uL Normal 4.2-5.4 [facility] Comment on above: Performed By: #### L 9200.0000 #### [facility] [address] [place], [address] RDW SD 53.1 fl High 35.1-43.9 [facility] Comment on above: Performed By: #### L 9200.0000 #### [facility] [address] [place], [place], [id number] WBC (Bld) [#/Vol] 9.9 10*3/uL Normal 4.4-11.0 [facility] Comment on above: Performed By: #### L 9200.0000 #### [facility] [address] [place], [place], [address] Carbon dioxide, total [Moles /volume] in Central venous bloodon 10-15-2024 CO2 [Moles/Vol] 20.9 mmol/L Low 21.0-32.0 [facility] Chloride assayon 10-15-2024 Chloride [Moles/Vol] 109 mmol/L High 98-108 [facility] Erythrocyte distribution wid th ratioon 10-15-2024 Erythrocyte distribution width (RBC) [Ratio] 15.2 % High 11.6-14.6 [facility] Erythrocyte distribution wid th standard deviationon 10-15-2024 Erythrocyte distribution width (RBC) [Ratio] 53.1 fl High 35.1-43.9 [facility] Glomerular filtration rate ( GFR) estimation/1.73 sq m using serum, plasma, or whole bon 10-15-2024 GFR/1.73 sq M.predicted among non-blacks MDRD (S/P/Bld) [Vol rate/Area] 32 mL/min/{1.73_m2} Low >60 [facility] Comment on above: mL/min/1.73m2 CKD-EP I Creatinine Equation (2020) Hematocrit Auto (Bld) [Volum e fraction]on 10-15-2024 Hematocrit (Bld) [Volume fraction] 47.1 % High 37-47 [facility] Hemoglobin measurementon Hemoglobin (Bld) [Mass/Vol] 14.9 g/dL 12.0-15.0 [facility] MCV (mean corpuscular volume ) determinationon 10-15-2024 MCV (RBC) [Entitic vol] 94.4 fL 81-99 [facility] Mean corpuscular hemoglobin (MCH) determinationon 10-15-2024 MCH (RBC) [Entitic mass] 29.9 pg 27.0-32.0 [facility] Mean corpuscular hemoglobin concentration (MCHC) determinationon 10-15-2024 MCHC (RBC) [Mass/Vol] 31.6 g/dL Low 32-36 [facility] Mean platelet volume determi nationon 10-15-2024 Platelet mean volume (Bld) [Entitic vol] 12.8 fL High 6.2-12.0 [facility] Platelet counton 10-15-2024 Platelets (Bld) [#/Vol] 179 10*3/uL 150-450 [facility] Potassium measurement (mass/ volume)on 10-15-2024 Potassium (Unsp spec) [Mass/Vol] 4.8 mmol/L 3.3-5.1 [facility] RBC Auto (Bld) [#/Vol]on RBC (Bld) [#/Vol] 4.99 10*6/uL 4.2-5.4 [facility] Serum creatinine measurement (mass/volume)on 10-15-2024 Creatinine [Mass/Vol] 1.61 mg/dL High 0.70-1.20 [facility] Serum glucose measurement (m ass/volume)on 10-15-2024 Glucose [Mass/Vol] 101 mg/dL High 70-99 [facility] Serum or plasma calcium scott urement (mass/volume)on 10-15-2024 Calcium [Mass/Vol] 9.5 mg/dL 7.6-11.0 [facility] Serum or plasma urea nitroge n measurement (mass/volume)on 10-15-2024 Urea nitrogen [Mass/Vol] 33 mg/dL High 4-19 [facility] Sodium levelon 10-15-2024 Sodium [Moles/Vol] 142 mmol/L 133-145 [facility] White blood cell (WBC) count on 10-15-2024 WBC (Bld) [#/Vol] 9.9 10*3/uL 4.4-11.0 [facility] 36on 10-14-2024 36 Spoke with patient, she will have labs drawn tomorrow at [place]. Will have timber hewer fax lab orders over Normal [facility] 36 Patient is scheduled for TAVR on 10/23/24. -Reviewed bridging with [facility] pharmacist. Patient current CrCl is 24 which [...] morning. (Will review this with Dr. Canas) [place] [address]on 10-10-2024 36 Results scanned unde r [facility] 36 I called and spoke dana Borrego and she is faxing result [place] [address] Reviewed with Butch carlson APRN as patient completed renal US, plan if BMP shows stable function to proceed with TAVR. BMP results from 10/03/24 at [place] show creatinine 1.82 with GRF 28. Will have BROKERAGE CLERK review and place TAVR case request if appropriate [address] 10-08-2024 36 I need PB chart note finished from 09/03/24 to do this auth [address] 10-07-2024 36 I called [place] [facility] and l/m to send me results [facility] Anion gap in Serum or Plasma Ordered By: Basim Joel on 10-03-2024 Anion gap [Moles/Vol] 13 mmol/L 07-04 [facility] BUN/creatinine ratioOrdered By: Basim Joel on 10-03-2024 Urea nitrogen/Creatinine [Mass ratio] 23.9 mg/mg High 12-09 [facility] Basic Metabolic Profile (BMP )on 10-03-2024 BUN/CRE 23.9 RATIO High 12-09 [facility] Comment on above: Performed By: #### L 500.2500 #### [facility] [address] [place], [address] Calcium [Mass/Vol] 10.2 mg/dL Normal 7.6-11.0 [facility] Comment on above: Performed By: #### L 500.2500 #### [facility] [address] [place], [address] Chloride [Moles/Vol] 106 mmol/L Normal 98-108 [facility] Comment on above: Performed By: #### L 500.2500 #### [facility] [address] [place], [address] CO2 [Moles/Vol] 22.6 mmol/L Normal 21.0-32.0 [facility] Comment on above: Performed By: #### L 500.2500 #### [facility] [address] [place], [address] Creatinine [Mass/Vol] 1.82 mg/dL High 0.70-1.20 [facility] Comment on above: Performed By: #### L 500.2500 #### [facility] [address] [place], [address] GAP 13 Normal 5-15 [facility] Comment on above: Performed By: #### L 500.2500 #### [facility] [address] [place], [address] GFR/1.73 sq M.predicted among non-blacks MDRD (S/P/Bld) [Vol rate/Area] 28 mL/min/{1.73_m2} Low >60 [facility] Comment on above: Result Comment: mL/m in/1.73m2 CKD-EPI Creatinine Equation (2020) Performed By: #### L 500.2500 #### [facility] [address] [place], [address] Glucose [Mass/Vol] 77 mg/dL Normal 70-99 [facility] Comment on above: Performed By: #### L 500.2500 #### [facility] [address] [place], [address] Potassium [Moles/Vol] 5.5 mmol/L High 3.3-5.1 [facility] Comment on above: Performed By: #### L 500.2500 #### [facility] [address] [place], [address] Sodium [Moles/Vol] 142 mmol/L Normal 133-145 [facility] Comment on above: Performed By: #### L 500.2500 #### [facility] [address] [place], [address] Urea nitrogen [Mass/Vol] 44 mg/dL High 4-19 [facility] Comment on above: Performed By: #### L 500.2500 #### [facility] [address] [place], [address] Carbon dioxide, total [Moles /volume] in Central venous bloodOrdered By: Basim Joel on 10-03-2024 CO2 [Moles/Vol] 22.6 mmol/L 21.0-32.0 [facility] Chloride assayOrdered By: Nerissa Joel on 10-03-2024 Chloride [Moles/Vol] 106 mmol/L 98-108 [facility] Glomerular filtration rate ( GFR) estimation/1.73 sq m using serum, plasma, or whole bOrdered By: Basim Joel on 10-03-2024 GFR/1.73 sq M.predicted among non-blacks MDRD (S/P/Bld) [Vol rate/Area] 28 mL/min/{1.73_m2} Low >60 [facility] Comment on above: mL/min/1.73m2 CKD-EP I Creatinine Equation (2020) Potassium measurement (mass/ volume)Ordered By: Basim Joel on 10-03-2024 Potassium (Unsp spec) [Mass/Vol] 5.5 mmol/L High 3.3-5.1 [facility] Serum creatinine measurement (mass/volume)Ordered By: Basim Joel on 10-03-2024 Creatinine [Mass/Vol] 1.82 mg/dL High 0.70-1.20 [facility] Serum glucose measurement (m ass/volume)Ordered By: Basim Joel on 10-03-2024 Glucose [Mass/Vol] 77 mg/dL 70-99 [facility] Serum or plasma calcium scott urement (mass/volume)Ordered By: Basim Joel on 10-03-2024 Calcium [Mass/Vol] 10.2 mg/dL 7.6-11.0 [facility] Serum or plasma urea nitroge n measurement (mass/volume)Ordered By: Basim Joel on 10-03-2024 Urea nitrogen [Mass/Vol] 44 mg/dL High 4-19 [facility] Sodium levelOrdered By: David williamsone Wisam on 10-03-2024 Sodium [Moles/Vol] 142 mmol/L 133-145 [facility] 36on 10-02-2024 36 Order faxed to and confirmed Normal [facility] 36 Spoke with patient regarding US kidney. Repeat BMP . [facility]. [facility] Normal [facility] Cardiac Cath Diagnosticon Cardiac Cath Diagnostic [facility] Services [address] [place] [address] Cardiac Cath Diagnostic MR#: [id number] Acct: [id number] Name: LINDA PERALTA Rep #: [id number] : 1945 79 From: Jordan Marte MD PCP: Dr. Amos Floyd MD Status:DEP [facility] Patient Name: LINDA PERALTA Study Date: 08/05/2024 Performing: Jordan Marte MD Ht: 62 inches 157.48 cm : 1945 Wt: 145.99 lbs 66.22 kg Age: 79 Gender: female BSA: 1.67 PROCEDURE(S) PERFORMED [id number]-([id number])[facility] CLINICAL PROFILE AND INDICATIONS Indications: Valvular Disease [...] multiple views using a 5 Fr. 4.0 Brogan catheter. Right Coronary Artery selective angiography was then performed in multiple views using a 5 Fr. 4.0 Brogan catheter.The arterial sheath was pulled and a [...] MD Date Dictated: 08/05/24826 Date Transcribed: 08/05/24855 Baster Hand: CO Signed Normal [facility] ECG 12 lead - CLINIC PERFORM EDon 09-29-2024 Sinus Rhythm -occasi onal ectopic ventricular beat -Combined atrial enlargement. -Nonspecific ST depression + Nonspecific T-abnormality -Nondiagnostic. [facility] 36on 09-26-2024 36 BMP review. Bump in BUN/creat after 3 days of 40 mg po Lasix. Spoke with daughter. Weight down to 144 #, swelling, improved, dyspnea improved. Will use Lasix 20 mg po for weight gain greater than 3 lbs overnight or 5lbs in a week. Daughter will relay recommendations. Normal [facility] Basic metabolic 2000 panelon 09-26-2024 Anion gap [Moles/Vol] 16 mmol/L High 8-15 [facility] Comment on above: Order Comment: Speci men Type: BLOOD SPECIMENOrdering Facility: [facility] Address: [address] [place] [address] Performed By: #### 2 4321-2 ####[facility] [id number] [place] [address] [place] Calcium [Mass/Vol] 10.0 mg/dL Normal 8.5-10.2 [facility] Comment on above: Order Comment: Speci men Type: BLOOD SPECIMENOrdering Facility: [facility] Address: [address] [place] [address] Performed By: #### 2 4321-2 ####[facility] HOSPITALJENAROA [id number] [place] [address] [place] Chloride [Moles/Vol] 98 mmol/L Normal 98-107 [facility] Comment on above: Order Comment: Speci men Type: BLOOD SPECIMENOrdering Facility: [facility] Address: [address] [place] [address] Performed By: #### 2 4321-2 ####[facility] HOS[facility]IT[facility] [id number] [place] [address] [place] CO2 [Moles/Vol] 24 mmol/L Normal 22-30 [facility] Comment on above: Order Comment: Speci men Type: BLOOD SPECIMENOrdering Facility: [facility] Address: [address] [place] [address] Performed By: #### 2 4321-2 ####[facility] [id number] [place] [address] [place] Creatinine [Mass/Vol] 2.12 mg/dL High 0.58-0.96 [facility] Comment on above: Order Comment: Speci men Type: BLOOD SPECIMENOrdering Facility: [facility] Address: [address] [place] [address] Performed By: #### 2 4321-2 ####[facility] [id number] [place] [address] [place] eGFRcr SerPlBld CKD-EPI 2020 23 mL/min/1.73m??? Low >=60 [facility] Comment on above: Order Comment: Speci men Type: BLOOD SPECIMENOrdering Facility: [facility] Address: [address] [place] [address] Result Comment: Marisabel mated Glomerular Filtration Rate [...] actual GFR. Performed By: #### 2 4321-2 ####[facility] JACKSONWNCLIA [id number] [place] [address] [place] Glucose [Mass/Vol] 106 mg/dL High 74-99 [facility] Comment on above: Order Comment: Speci men Type: BLOOD SPECIMENOrdering Facility: [facility] Address: [address] [place] [address] Result Comment: The [place] Diabetes Association (ADA) provides guidance for cutoff [...] Standards of Medical Care in Diabetes 2016, [place] [employer]. Diabetes Care. 2016.39(Suppl 1). Performed By: #### 2 4321-2 ####[facility] RENESCOTWKEYLALIA [id number] [place] [address] [place] Potassium [Moles/Vol] 4.1 mmol/L Normal 3.7-5.1 [facility] Comment on above: Order Comment: Speci men Type: BLOOD SPECIMENOrdering Facility: [facility] Address: [address] [place] [address] Performed By: #### 2 4321-2 ####[facility] MILLTOWNCLIA [id number] [place] [address] [place] Sodium [Moles/Vol] 138 mmol/L Normal 136-144 [facility] Comment on above: Order Comment: Speci men Type: BLOOD SPECIMENOrdering Facility: [facility] Address: [address] [place] [address] Performed By: #### 2 4321-2 ####[facility]ITALKEYLA [id number] [place] [address] [place] Urea nitrogen [Mass/Vol] 48 mg/dL High 7-21 [facility] Comment on above: Order Comment: Speci men Type: BLOOD SPECIMENOrdering Facility: [facility] Address: [address] [place] [address] Performed By: #### 2 4321-2 ####[facility] [id number] [place] [address] [place] US KIDNEY/BLADDERon 09-27-19 [...] Normal sonographic appearance. IMPRESSION: Right renal cysts. Baster Hand: PSCGianluca Transcribe Date/Time: Sep 29 2024 8:00P Dictated by : ANDI COELHO MD This examination was interpreted and the report reviewed and electronically signed by: ANDI COELHO MD on Sep 29 2024 8:01PM EST [id number] Normal [facility] BACTERIAL CULTURE, URINEOrde red By: Nathaniel Henriquez on 09-20-2024 Bacteria identified Cx Nom (U) No growth (<1,000 CFU/ml) [facility] Bacteria identified Cx Nom ( U)Ordered By: Nathaniel Henriquez on 09-20-2024 Interpretation and review of laboratory results Normal [facility] 29on 09-19-2024 29 Addended by: BASIM JOEL on: 09/23/2024 01:57 PM Modules accepted: Orders Normal [facility] BLADDER SCANon 09-19-2024 PVR 66 Cc [facility] Bacteria Ur Culton 5 Bacteria identified Cx Nom (U) CULTURE, URINE: No growth (<1,000 CFU/ml) Normal [facility] Comment on above: Performed By: #### 6 30-4 #### [facility] CLIA [id number] [address] [facility] CNOVon 09-19-2024 CNOV Office Visit (UROLAE ) -------- LINDA PERALTA ([id number]) 1945 F Date Time Provider Department 09/19/24 11:00 AM ARELIS SMITH During your visit today, we recorded the following information about you: Blood pressure Weight Height 124/76 70.3 kg 1.575 m Arelis Smith APRN.ROOFER VINYL COATING 09/20/2024 1:00 PM Signed [facility] [place] UROL [place] EXCHANGE NEW PATIENT UROLOGY VISIT 09/19/2024 10:34 AM PATIENT NAME: Linda Peralta DATE OF : 1945 TODAY'S DATE: 09/19/2024 Referring Provider: Rocio Elizalde [address] [facility] [address] Referring Note Reviewed: Yes Chief Complaint: recurrent [...] MEDICAL HISTORY Diagnosis Date 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 (): seen by Dr. [place], ongoing nausea, vomiting, diarrhea, treated with steroids despit Adrenal insufficiency ([facility]) 06/12/2023 Age-related osteoporosis with current pathological fracture with routine healing 01/19/2023 Anemia 08/26/2009 ASHD (arteriosclerotic heart disease) 04/25/2009 Asthma ([facility]) Benign neoplasm of colon 04/26/2005 Tubular adenoma Chronic diarrhea 03/15/2010 Chronic sphenoidal sinusitis 09/15/2003 Closed displaced fracture of fifth metatarsal bone of right foot 03/22/2023 Closed fracture of bone of right foot 11/08/2022 Collagenous colitis 03/30/2010 Contact dermatitis and other eczema, due to unspecified cause 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 Cardiac cath normal. 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Lares's disease Cystocele, midline 07/23/2007 Diverticulosis of colon [...] W/COLLJ SPEC WHEN PFRMD 03/26/2010 Inpatient at [facility] ESOPHAGOGASTRODUODENOSCO PY TRANSORAL DIAGNOSTIC 02/2002 EGD ESOPHAGOGASTRODUODENOSCO PY TRANSORAL DIAGNOSTIC 05/01/2009 EGD ESOPHAGOGASTRODUODENOSCO PY TRANSORAL DIAGNOSTIC (more content not included)... Normal [facility] Jayce 09-19-2024 TELLYN Telephone (UROLAE) -------- LINDA PERALTA ([id number]) 1945 F Date Time Provider Department 09/19/24 [...] Encounter Status:Closed by SINDI ANGELES on 09/23/24 [facility] CT ANGIOGRAM TAVRon 09-20-19 CT ANGIOGRAM [...] 09/19/2024 11:00 PM EDT --------ORIGINAL REPORT -------- [facility] Cardiovascular CTA Indication: 79 year-old woman with severe aortic stenosis, being evaluated for transcatheter aortic valve implantation. Technique: Computed tomography of the heart, thoracoabdominal aorta, and iliofemoral system was performed using a [employer] Aquilion One 320 detector scanner. Images were [...] the calcified. Predicted deployment angle (3-cusp view): ANDORRAN 16, CANOPY STRINGER 3 Aortic Annulus: Dimensions: 2.56 x 1.98 [...] Exam: Aortic valve replacement (TAVR), pre-op eval [facility] Cardiovascular CTA Indication: 79 year-old woman with severe aortic stenosis, being evaluated for transcatheter aortic valve implantation. Technique: Computed tomography of the heart, thoracoabdominal aorta, and iliofemoral system was performed using a [employer] Aquilion One 320 detector scanner. Images were [...] normal in (more content not included)... Normal [facility] CT Chest WO and CT angiogram [...] 09/19/2024 11:00 PM EDT --------ORIGINAL REPORT -------- [facility] Cardiovascular CTA Indication: 79 year-old woman with [...] the calcified. Predicted deployment angle (3-cusp view): ANDORRAN 16, CANOPY STRINGER 3 Aortic Annulus: Dimensions: 2.56 x 1.98 [...] Electronically Signed Date/Time: 09/19/2024 4:29 PM EDT [employer] Patient Name: LINDA TEJADA : 1945 [id number] Exam Date/Time: 09/19/2024 12:47 Procedure: CT ANGIOGRAM TAVR Ordering Provider: GUPTA MEGGAN Reason For Exam: Aortic valve replacement (TAVR), pre-op eval [facility] Cardiovascular CTA Indication: 79 year-old woman with severe aortic stenosis, being evaluated for transcatheter aortic valve implantation. Technique: Computed tomography of the heart, thoracoabdominal aorta, and iliofemoral system was performed using a [employer] Aquilion One 320 detector scanner. Images were [...] the calcified. Predicted deployment angle (3-cusp view): ANDORRAN 16, CANOPY STRINGER 3 Aortic Annulus: Dimensions: 2.56 x 1.98 [...] Electronically Signed Date/Time: 09/19/2024 4:29 PM T [facility] Ben Elias MD / Nixon Jones DO - 09/19/2024 Patient Name: LINDA PERALTA : 1945 [facility]#: [id number] Exam Date/Time: 09/19/2024 12:47 Procedure: CT ANGIOGRAM TAVR Ordering Provider: GUPTA MEGGAN Reason For Exam: Aortic valve replacement (TAVR), pre-op eval [facility] Cardiovascular CTA Indication: 79 year-old woman with severe aortic stenosis, being evaluated for transcatheter aortic valve implantation. Technique: Computed tomography of the heart, thoracoabdominal aorta, and iliofemoral system was performed using a [employer] Aquilion One 320 detector scanner. Images were [...] the calcified. Predicted deployment angle (3-cusp view): ANDORRAN 16, CANOPY STRINGER 3 Aortic Annulus: Dimensions: 2.56 x 1.98 [...] Electronically Signed Date/Time: 09/19/2024 4:29 PM EDT [facility]ative[facility] CT angiogram Coronary arteries W contrast IVOrdered By: Ben Elias on 09-19-2024 [employer] Work Phone: Office Visiton 09-19-2024 Follow-up visit [id number] Ingris Peralta 1945 F Date Provider Department Center 09/19/2024 [id number] JOEL L [facility] [address] Ar Family History Problem Relation Age of Onset Heart attack Mother Stroke Father Family Status - Relation Status Age at Mother Father Level of Service:78601 ID OFFICE/OUTPATIENT ESTABLISHED MOD MDM 30 MIN Reason for Visit and Comments: Cardiac Valve Problem [1334] Normal [facility] Progress Noteon 09-19-2024 Progress Note [facility] [employer] CARDIOL OGY - [place] [address] [place] [address] Dept: [phone] Dept Visit type: Established : 1945 Reason [...] Dr. Gaffney- vascular. Will reach out to [facility] for bridging recommendation 3. Acute systolic heart [...] a PMH for CAD, HPL, DVT, PE, Lares's disease, CKD s/p left nephrectomy (donated) and [...] dyspnea with moderate activity. No CAD per [facility]. Weight 156 lbs. Last clinic visit She [...] specialty: Independent interpretation of tests: Basim Joel, BROKERAGE CLERK - ROOFER VINYL COATING [1] Allergies Allergen Reactions Amlodipine Swelling Ciprofloxacin [...] Rfl: m (more content not included)... Normal [facility] UA DIP, URINE (POC)on 2024 BILIRUBIN UA (POCT) Negative Negative [facility] CLARITY UA (POCT) Clear [facility] COLOR UA (POCT) Yellow [facility] GLUCOSE UA (POCT) Negative Negative mg/dL [facility] Hemoglobin Ql (U) Negative Negative [facility] Interpretation and review of laboratory results Abnormal [facility] KETONE UA (POCT) Negative Negative mg/dL [facility] LEUKOCYTES UA (POCT) Small Abnormal Negative [facility] NITRITE UA (POCT) Negative Negative [facility] PH UA (POCT) 6 4.5 - 8.0 [facility] Protein Ql (U) Negative Negative mg/dL [facility] SPECIFIC GRAVITY UA (POCT) 1.01 1.005 - 1.030 [facility] UROBILINOGEN UA (POCT) 0.2 Camelia l E.U./dL [facility] Location:[facility], [address] [place] [address], [id number] [place] [address] [facility] LINDA PERALTA ([id number]) 1945 F Date Time Provider Department 09/12/24 AMOS FLOYD INTMWS During your visit today, we recorded the following information about you: Ama Diaz RN 09/12/2024 5:03 PM Signed Pt called [...] [N39.0] Order(s):CONSULT TO UROLOGY [9041] Order #: [id number]: 1 FUTURE Prescriptions as of 09/19/2024 - [...] Status:Closed by AMA DIAZ on 09/19/24 Normal [facility] Absolute lymphocyte counton 09-10-2024 Lymphocytes Auto (Unsp spec) [#/Vol] 2.14 10*3/uL 0.83-4.51 [facility] Absolute neutrophil counton 09-10-2024 Neutrophils (Bld) [#/Vol] 5.9 10*3/uL 2.0-7.7 [facility] Anion gap in Serum or Plasma on 09-10-2024 Anion gap [Moles/Vol] 13 mmol/L 5- [facility] Automated lymphocyte count a s percentage of total leukocyteson 09-10-2024 Lymphocytes/100 WBC Auto (Unsp spec) 22.3 % - [facility] BUN/creatinine ratioon 09-10 Urea nitrogen/Creatinine [Mass ratio] 19.7 mg/mg - [facility] Basic Metabolic Profile (BMP )on 09-10-2024 BUN/CRE 19.7 RATIO Normal 12-09 [facility] Comment on above: Performed By: #### L 500.2500 #### [facility] [address] [place], [address] Calcium [Mass/Vol] 9.5 mg/dL Normal 7.6-11.0 [facility] Comment on above: Performed By: #### L 500.2500 #### [facility] [address] [place], [address] Chloride [Moles/Vol] 108 mmol/L Normal 98-108 [facility] Comment on above: Performed By: #### L 500.2500 #### [facility] [address] [place], [address] CO2 [Moles/Vol] 21.8 mmol/L Normal 21.0-32.0 [facility] Comment on above: Performed By: #### L 500.2500 #### [facility] [address] [place], [address] Creatinine [Mass/Vol] 1.39 mg/dL High 0.70-1.20 [facility] Comment on above: Performed By: #### L 500.2500 #### [facility] [address] [place], [address] GAP 13 Normal 07-04 [facility] Comment on above: Performed By: #### L 500.2500 #### [facility] [address] [place], [address] GFR/1.73 sq M.predicted among non-blacks MDRD (S/P/Bld) [Vol rate/Area] 38 mL/min/{1.73_m2} Low >60 [facility] Comment on above: Result Comment: mL/m in/1.73m2 CKD-EPI Creatinine Equation (2020) Performed By: #### L 500.2500 #### [facility] [address] [place], [address] Glucose [Mass/Vol] 76 mg/dL Normal 70-99 [facility] Comment on above: Performed By: #### L 500.2500 #### [facility] [address] [place], [address] Potassium [Moles/Vol] 4.6 mmol/L Normal 3.3-5.1 [facility] Comment on above: Result Comment: Hemo lysis present, Results??could be affected. ?? Performed By: #### L 500.2500 #### [facility] [address] [place], [address] Sodium [Moles/Vol] 142 mmol/L Normal 133-145 [facility] Comment on above: Performed By: #### L 500.2500 #### [facility] [address] [place], [address] Urea nitrogen [Mass/Vol] 27 mg/dL High 4-19 [facility] Comment on above: Performed By: #### L 500.2500 #### [facility] [address] [place], [address] Basophil percentageon 09-10- 2024 Basophils/100 WBC (Bld) 0.6 % 0-1 [facility] CBC W/Diff, Automatedon 08-21 Absolute Lymph 2.14 X10 3/uL Normal 0.83-4.51 [facility] Comment on above: Performed By: #### L 500.2500 #### [facility] [address] [place], [address] Absolute Neut 5.9 X10 3/uL Normal 2.0-7.7 [facility] Comment on above: Performed By: #### L 500.2500 #### [facility] [address] [place], [address] Basophils/100 WBC (Bld) 0.6 % Normal 0-1 [facility] Comment on above: Performed By: #### L 500.2500 #### [facility] [address] [place], [address] Eosinophils/100 WBC (Bld) 4.5 % Normal 0-5 [facility] Comment on above: Performed By: #### L 500.2500 #### [facility] [address] [place], [address] Erythrocyte distribution width (RBC) [Ratio] 16.3 % High 11.6-14.6 [facility] Comment on above: Performed By: #### L 500.2500 #### [facility] [address] [place], [address] Hematocrit (Bld) [Volume fraction] 42.7 % Normal 37-47 [facility] Comment on above: Performed By: #### L 500.2500 #### [facility] [address] [place], [address] Hemoglobin (Bld) [Mass/Vol] 13.7 g/dL Normal 12.0-15.0 [facility] Comment on above: Performed By: #### L 500.2500 #### [facility] [address] [place], [address] IG% 1.800 High 0.0-0.9 [facility] Comment on above: Result Comment: IG% - Immature Granulocytes (promyelocytes, myelocytes and metamyelocytes) > 1% indicates that a LEFT SHIFT is Present. Performed By: #### L 500.2500 #### [facility] [address] [place], [address] Lymphocytes/100 WBC (Bld) 22.3 % Normal 19-41 [facility] Comment on above: Performed By: #### L 500.2500 #### [facility] [address] [place], [address] MCH (RBC) [Entitic mass] 30.5 pg Normal 27.0-32.0 [facility] Comment on above: Performed By: #### L 500.2500 #### [facility] [address] [place], [address] MCHC (RBC) [Mass/Vol] 32.1 g/dL Normal 32-36 [facility] Comment on above: Performed By: #### L 500.2500 #### [facility] [address] [place], [address] MCV (RBC) [Entitic vol] 95.1 fL Normal 81-99 [facility] Comment on above: Performed By: #### L 500.2500 #### [facility] [address] [place], [address] Monocytes/100 WBC (Bld) 9.1 % Normal 0-10 [facility] Comment on above: Performed By: #### L 500.2500 #### [facility] [address] [place], [address] Neutrophils/100 WBC (Bld) 61.7 % Normal 47-70 [facility] Comment on above: Performed By: #### L 500.2500 #### [facility] [address] [place], [address] Nucleated RBC (Bld) [#/Vol] 0 10*3/uL Normal 0-5 [facility] Comment on above: Performed By: #### L 500.2500 #### [facility] [address] [place], [address] Platelet mean volume (Bld) [Entitic vol] 11.6 fL Normal 6.2-12.0 [facility] Comment on above: Performed By: #### L 500.2500 #### [facility] [address] [place], [address] Platelets (Bld) [#/Vol] 234 10*3/uL Normal 150-450 [facility] Comment on above: Performed By: #### L 500.2500 #### [facility] [address] [place], [address] RBC (Bld) [#/Vol] 4.49 10*6/uL Normal 4.2-5.4 [facility] Comment on above: Performed By: #### L 500.2500 #### [facility] [address] [place], [address] RDW SD 57.0 fl High 35.1-43.9 [facility] Comment on above: Performed By: #### L 500.2500 #### [facility] [address] [place], [address] WBC (Bld) [#/Vol] 9.6 10*3/uL Normal 4.4-11.0 [facility] Comment on above: Performed By: #### L 500.2500 #### [facility] [address] [place], [address] Carbon dioxide, total [Moles /volume] in Central venous bloodon 09-10-2024 CO2 [Moles/Vol] 21.8 mmol/L 21.0-32.0 [facility] Chloride assayon 09-10-2024 Chloride [Moles/Vol] 108 mmol/L 98-108 [facility] Eosinophil percentageon 08-21 Eosinophils/100 WBC (Bld) 4.5 % 0-5 [facility] Erythrocyte distribution wid th ratioon 09-10-2024 Erythrocyte distribution width (RBC) [Ratio] 16.3 % High 11.6-14.6 [facility] Erythrocyte distribution wid th standard deviationon 09-10-2024 Erythrocyte distribution width (RBC) [Ratio] 57.0 fl High 35.1-43.9 [facility] Glomerular filtration rate ( GFR) estimation/1.73 sq m using serum, plasma, or whole bon 09-10-2024 GFR/1.73 sq M.predicted among non-blacks MDRD (S/P/Bld) [Vol rate/Area] 38 mL/min/{1.73_m2} Low >60 [facility] Comment on above: mL/min/1.73m2 CKD-EP I Creatinine Equation (2020) Hematocrit Auto (Bld) [Volum e fraction]on 09-10-2024 Hematocrit (Bld) [Volume fraction] 42.7 % 37-47 [facility] Hemoglobin measurementon Hemoglobin (Bld) [Mass/Vol] 13.7 g/dL 12.0-15.0 [facility] Immature granulocytes/100 WB C Auto (Bld)on 09-10-2024 Immature granulocytes/100 WBC (Bld) 1.800 % High 0.0-0.9 [facility] Comment on above: IG% - Immature Granu locytes (promyelocytes, myelocytes and metamyelocytes) > 1% indicates that a LEFT SHIFT is Present. MCV (mean corpuscular volume ) determinationon 09-10-2024 MCV (RBC) [Entitic vol] 95.1 fL 81-99 [facility] Mean corpuscular hemoglobin (MCH) determinationon 09-10-2024 MCH (RBC) [Entitic mass] 30.5 pg 27.0-32.0 [facility] Mean corpuscular hemoglobin concentration (MCHC) determinationon 09-10-2024 MCHC (RBC) [Mass/Vol] 32.1 g/dL 32-36 [facility] Mean platelet volume determi nationon 09-10-2024 Platelet mean volume (Bld) [Entitic vol] 11.6 fL 6.2-12.0 [facility] Monocyte percentageon 2024 Monocytes/100 WBC (Bld) 9.1 % 0-10 [facility] Neutrophil percentageon 08-21 Neutrophils/100 WBC (Bld) 61.7 % 47-70 [facility] Nucleated red blood cell per centageon 09-10-2024 Nucleated RBC/100 WBC (Bld) [Ratio] 0 % 0-5 [facility] Platelet counton 09-10-2024 Platelets (Bld) [#/Vol] 234 10*3/uL 150-450 [facility] Potassium measurement (mass/ volume)on 09-10-2024 Potassium (Unsp spec) [Mass/Vol] 4.6 mmol/L 3.3-5.1 [facility] Comment on above: Hemolysis present, R esults could be affected. RBC Auto (Bld) [#/Vol]on RBC (Bld) [#/Vol] 4.49 10*6/uL 4.2-5.4 [facility] Serum creatinine measurement (mass/volume)on 09-10-2024 Creatinine [Mass/Vol] 1.39 mg/dL High 0.70-1.20 [facility] Serum glucose measurement (m ass/volume)on 09-10-2024 Glucose [Mass/Vol] 76 mg/dL 70-99 [facility] Serum or plasma calcium scott urement (mass/volume)on 09-10-2024 Calcium [Mass/Vol] 9.5 mg/dL 7.6-11.0 [facility] Serum or plasma urea nitroge n measurement (mass/volume)on 09-10-2024 Urea nitrogen [Mass/Vol] 27 mg/dL High 4-19 [facility] Sodium levelon 09-10-2024 Sodium [Moles/Vol] 142 mmol/L 133-145 [facility] White blood cell (WBC) count on 09-10-2024 WBC (Bld) [#/Vol] 9.6 10*3/uL 4.4-11.0 [facility] Office Visiton 09-03-2024 Follow-up visit [id number] Ingris Peralta 1945 F Date Provider Department Center 09/03/2024 [id number] DE LA CRUZ [facility] [address] Family History Problem Relation Age of Onset Heart attack Mother Stroke Father Family Status - Relation Status Age at Mother Father Level of Service:95385 ID OFFICE/OP CONSLTJ NEW/EST PT HIGH MDM 55 MINUTES Reason for Visit and Comments: New Patient [542] Cardiac Valve Problem [1334] - Heart valve clinic [facility] Follow-up visit [id number] Ingris Peralta 1945 F Date Provider Department Center 09/03/2024 [id number] CANAS [facility] 95 Ar Family History Problem Relation Age of Onset Heart attack Mother Stroke Father Family Status - Relation Status Age at Mother Father Level of Service:45055 ID OFFICE/OUTPATIENT ESTABLISHED HIGH [facility] 40 MIN Reason for Visit and Comments: New Patient [542] Cardiac Valve Problem [1334] - Heart valve clinic [facility] Progress Noteon 09-03-2024 Progress Note [facility]: Cardiothoracic Surgery Multidisciplinary Heart Valve Clinic Date: 09/03/24 Patient:Linda Peralta 1945 79 y.o. female [id number] Subjective: HPI: Linda Peralta 79 [address] Marte is being evaluated for aortic valve stenosis. Echocardiogram completed on 07/03/24 showed moderate to severe aortic valve stenosis with mean gradient 39 mm Hg. Per note, patient with past medical history significant for STEMI 2009, HLD, DVT, PE, Lares's Disease, CKD, s/p left nephrectomy and right partial nephrectomy, mitral valve prolapse, and aortic valve stenosis. Pt underwent TOMI on 07/03/24 which demonstrated LVEF 45%, 1-2+ NV, stage 1 diastolic dysfunction, moderately severe aortic [...] were no vitals taken for this visit. @[id number]@ Physical Exam Constitutional: Appearance: Normal appearance. HENT: [...] neck supple (more content not included)... Normal [employer] [facility] Progress Note [facility] CARDIOL [facility] [address] [facility] [address] Dept: [phone] Dept Visit type: New : 1945 Reason [...] proceeding with TAVR. We will contact her political aide for recommendations about steroid dosing around the [...] LVEFPHYS, LVEF (more content not included)... Normal [facility] Progress Noteon 08-30-2024 Progress Note Hermes Peralta 79 y [address] referred by Dr. Marte is being evaluated for aortic valve stenosis. Echocardiogram completed on 07/03/24 showed moderate to severe aortic valve stenosis with mean gradient 39 mm Hg. Per note, patient with past medical history significant for STEMI 2009, HLD, DVT, PE, Lares's Disease, CKD, s/p left nephrectomy and right partial nephrectomy, mitral valve prolapse, and aortic valve stenosis. Pt underwent TOMI on 07/03/24 which demonstrated LVEF 45%, 1-2+ NV, stage 1 diastolic dysfunction, moderately severe aortic [...] Streptococcus anginosus No susceptibility testing done. Normal [facility] Comment on above: Performed By: #### 6 30-4 ####[facility] [id number] [address] STATES OF [facility] CNOVon 08-29-2024 CNOV Office Visit (INTMWS ) -------- LINDA PERALTA ([id number]) 1945 F Date Time Provider Department 08/29/24 10:40 AM AMOS FLOYD INTMWS During your visit today, we recorded the following information about you: Pulse Respiration Blood pressure Weight 71/minute 20/minute 135/83 71.4 kg Amos Floyd MD 08/29/2024 11:26 AM Signed This note was created using [employer]. Subjective Linda Peralta is a 79 year old female here with daughter. She was doing better. Blood pressure was elevating now. Her political aide, Dr. Gregory, did not need to call in a medication to raise her blood pressure. Edema was improving. Dysuria resolved. She was scheduled to see cardiac surgeons in [facility] next week for possible TAVR. Review [...] I35.0 - To see cardiac surgery in [facility]. 6. Thyroid nodule greater than or equal to 1 cm in diameter incidentally noted on imaging study, right side. - ICD9: 241.0, ICD10: E04.1 - We reviewed this. Dr. Gregory palpated her thyroid and was aware. He recommended monitori (more content not included)... Normal [facility] UA DIP, URINE (POC)on 2024 BILIRUBIN UA (POCT) Negative Negative [facility] CLARITY UA (POCT) Clear [facility] COLOR UA (POCT) Yellow [facility] GLUCOSE UA (POCT) Negative Negative mg/dL [facility] Hemoglobin Ql (U) Negative Negative [facility] Interpretation and review of laboratory results Abnormal [facility] KETONE UA (POCT) Negative Negative mg/dL [facility] LEUKOCYTES UA (POCT) Small Abnormal Negative [facility] NITRITE UA (POCT) Negative Negative [facility] PH UA (POCT) 6.5 4.5 - 8.0 [facility] Protein Ql (U) 30 mg/dL Abnormal Negative [facility] SPECIFIC GRAVITY UA (POCT) 1.02 1.005 - 1.030 [facility] UROBILINOGEN UA (POCT) 0.2 Camelia l E.U./dL [facility] Location:[facility], [address], [place], [address] [facility] POINT OF CARE [facility] CNPNon 08-19-2024 CNPN Telephone (INTMWS) -------- CORINNA Hermes ([id number]) 1945 F Date Time Provider Department 08/19/24 [...] order another antibiotic? Please advise daughter Souleymane [phone]. Amos Floyd MD 08/19/2024 5:46 PM Signed [...] [Z86.0100] 03/10 (more content not included)... Normal [facility] 36on 08-16-2024 36 Mailed [employer] packet and made chart Normal [facility] Bacteria Ur Culton Bacteria identified Cx [...] ORGANISM ID: 2 (ENTEROCOCCUS FAECALIS) ANTIBIOTIC INTERPRETATION EMILAI STATUS REFERENCE RANGE Ampicillin S <=2 F Susceptible <=8 , Resistant >8 Vancomycin S 1 F Susceptible <=4 , Intermediate >4 , Resistant >16 Nitrofurantoin S <=16 F Susceptible <=32 , Intermediate >32 , Resistant >64 Abnormal [facility] Comment on above: Performed By: #### 6 30-4 ####[facility] [id number] [address] OF [facility] CNOVon 08-14-2024 CNOV Office Visit (INTMWS ) -------- LINDA PERALTA ([id number]) 1945 F Date Time Provider Department 08/14/24 11:20 AM AMOS FLOYD INTMWS During your visit today, we recorded the following information about you: Temperature Pulse Respiration Blood pressure 98.2 degrees 88/minute 18/minute 98/64 Weight 71.2 kg Amos Floyd MD 08/15/2024 7:19 AM Signed This note was created using [employer]. Subjective Patient presents with: Hospital F/U Linda Peralta is a 79 year old female here with her daughter. She had a heart catheterization 08/05/24 showing minimal CAD and severe . She was being referred for TAVR to a specialist in [facility]. She developed weakness 08/07/24 and was found to be bradycardic and hypotensive. She was admitted with concerns for UTI, urosepsis, non STEMI, and Moris's. She was treated with IV fluids, antibiotic for Klebsiella aerogenes UTI, and IV hydrocortisone. She was noted to have edema and found to have acute DVT, in the setting of recent holding of custodial warfarin for the heart cath. She was [...] present. Neurolo (more content not included)... Normal [facility] UA DIP, URINE (POC)on 2024 BILIRUBIN UA (POCT) Negative Negative [facility] CLARITY UA (POCT) Clear [facility] COLOR UA (POCT) Yellow [facility] GLUCOSE UA (POCT) Negative Negative mg/dL [facility] Hemoglobin Ql (U) Negative Negative [facility] Interpretation and review of laboratory results Abnormal [facility] KETONE UA (POCT) Negative Negative mg/dL [facility] LEUKOCYTES UA (POCT) Trace Abnormal [facility] NITRITE UA (POCT) Negative Negative [facility] PH UA (POCT) 6 4.5 - 8.0 [facility] Protein Ql (U) 30 mg/dL Abnormal Negative [facility] SPECIFIC GRAVITY UA (POCT) 1.02 1.005 - 1.030 [facility] UROBILINOGEN UA (POCT) 0.2 Camelia l E.U./dL [facility] Location:[facility], [address] [place] [address], [place], [address] [facility] POINT OF CARE [facility] 36on 08-13-2024 36 Patient sched in 09/03/24 w/ PB/EE. I need to make chart and mail [employer] packet. Normal [facility] Culture, Blood (WB)on 2024 CUB Blood cultures x2, f rom two different sites No growth in 5 days. Normal [facility] Comment on above: Performed By: #### M 200.1000 ####[facility] [id number] [facility]. [place], [place], [address] Performed By: #### L 501.4021, M200.1000 ####[facility] [id number] [facility] [place], [address] Absolute lymphocyte countOrd ered By: Ted Toro on 08-09-2024 Lymphocytes Auto (Unsp spec) [#/Vol] 0.85 10*3/uL 0.83-4.51 [facility] Absolute neutrophil countOrd ered By: Ted Toro on 08-09-2024 Neutrophils (Bld) [#/Vol] 9.3 10*3/uL High 2.0-7.7 [facility] Anion gap in Serum or Plasma Ordered By: Ted Toro on 08-09-2024 Anion gap [Moles/Vol] 11 mmol/L 5-15 [facility] Automated lymphocyte count a s percentage of total leukocytesOrdered By: Ted Toro on 08-09-2024 Lymphocytes/100 WBC Auto (Unsp spec) 7.4 % Low 19-41 [facility] BUN/creatinine ratioOrdered By: Ted Toro on 08-09-2024 Urea nitrogen/Creatinine [Mass ratio] 30.7 mg/mg High 10-20 [facility] Basic Metabolic Profile (BMP )on 08-09-2024 BUN/CRE 30.7 RATIO High 12-09 [facility] Comment on above: Performed By: #### L 500.2500, L100.0100 #### [facility] [address] [place], [address] Calcium [Mass/Vol] 8.5 mg/dL Normal 7.6-11.0 [facility] Comment on above: Performed By: #### L 500.2500, L100.0100 #### [facility] [address] [place], [address] Chloride [Moles/Vol] 111 mmol/L High 98-108 [facility] Comment on above: Performed By: #### L 500.2500, L100.0100 #### [facility] [address] [place], [address] CO2 [Moles/Vol] 15.0 mmol/L Low 21.0-32.0 [facility] Comment on above: Performed By: #### L 500.2500, L100.0100 #### [facility] [address] [place], [address] Creatinine [Mass/Vol] 1.35 mg/dL High 0.70-1.20 [facility] Comment on above: Performed By: #### L 500.2500, L100.0100 #### [facility] [address] [place], [address] ECRCL 30.53 ml/min Low 50-250 [facility] Comment on above: Performed By: #### L 500.2500, L100.0100 #### [facility] [address] [place], [address] GAP 11 Normal 5-15 [facility] Comment on above: Performed By: #### L 500.2500, L100.0100 #### [facility] [address] [place], [address] GFR/1.73 sq M.predicted among non-blacks MDRD (S/P/Bld) [Vol rate/Area] 39 mL/min/{1.73_m2} Low >60 [facility] Comment on above: Result Comment: mL/m in/1.73m2 CKD-EPI Creatinine Equation (2020) Performed By: #### L 500.2500, L100.0100 #### [facility] [address] [place], [address] Glucose [Mass/Vol] 145 mg/dL High 70-99 [facility] Comment on above: Performed By: #### L 500.2500, L100.0100 #### [facility] [address] [place], [address] Potassium [Moles/Vol] 4.9 mmol/L Normal 3.3-5.1 [facility] Comment on above: Performed By: #### L 500.2500, L100.0100 #### [facility] [address] [place], [address] Sodium [Moles/Vol] 137 mmol/L Normal 133-145 [facility] Comment on above: Performed By: #### L 500.2500, L100.0100 #### [facility] [address] [place], [address] Urea nitrogen [Mass/Vol] 41 mg/dL High 4-19 [facility] Comment on above: Performed By: #### L 500.2500, L100.0100 #### [facility] [address] [place], [address] Basophil percentageOrdered B y: Ted Toro on 08-09-2024 Basophils/100 WBC (Bld) 0.3 % 0-1 [facility] CBC W/Diff, Automatedon - 0-2024 Absolute Lymph 0.85 X10 3/uL Normal 0.83-4.51 [facility] Comment on above: Performed By: #### L 500.2500, L100.0100 #### [facility] [address] [place], [address] Absolute Neut 9.3 X10 3/uL High 2.0-7.7 [facility] Comment on above: Performed By: #### L 500.2500, L100.0100 #### [facility] [address] [place], [address] Basophils/100 WBC (Bld) 0.3 % Normal 0-1 [facility] Comment on above: Performed By: #### L 500.2500, L100.0100 #### [facility] [address] [place], [address] Eosinophils/100 WBC (Bld) 0.2 % Normal 0-5 [facility] Comment on above: Performed By: #### L 500.2500, L100.0100 #### [facility] [address] [place], [address] Erythrocyte distribution width (RBC) [Ratio] 15.9 % High 11.6-14.6 [facility] Comment on above: Performed By: #### L 500.2500, L100.0100 #### [facility] [address] [place], [address] Hematocrit (Bld) [Volume fraction] 40.4 % Normal 37-47 [facility] Comment on above: Performed By: #### L 500.2500, L100.0100 #### [facility] [address] [place], [address] Hemoglobin (Bld) [Mass/Vol] 13.3 g/dL Normal 12.0-15.0 [facility] Comment on above: Performed By: #### L 500.2500, L100.0100 #### [facility] [address] [place], [address] IG% 1.600 High 0.0-0.9 [facility] Comment on above: Result Comment: IG% - Immature Granulocytes (promyelocytes, myelocytes and metamyelocytes) > 1% indicates that a LEFT SHIFT is Present. Performed By: #### L 500.2500, L100.0100 #### [facility] [address] [place], [address] Lymphocytes/100 WBC (Bld) 7.4 % Low 19-41 [facility] Comment on above: Performed By: #### L 500.2500, L100.0100 #### [facility] [address] [place], [address] MCH (RBC) [Entitic mass] 30.1 pg Normal 27.0-32.0 [facility] Comment on above: Performed By: #### L 500.2500, L100.0100 #### [facility] [address] [place], [address] MCHC (RBC) [Mass/Vol] 32.9 g/dL Normal 32-36 [facility] Comment on above: Performed By: #### L 500.2500, L100.0100 #### [facility] [address] [place], [address] MCV (RBC) [Entitic vol] 91.4 fL Normal 81-99 [facility] Comment on above: Performed By: #### L 500.2500, L100.0100 #### [facility] [address] [place], [address] Monocytes/100 WBC (Bld) 9.5 % Normal 0-10 [facility] Comment on above: Performed By: #### L 500.2500, L100.0100 #### [facility] [address] [place], [address] Neutrophils/100 WBC (Bld) 81.0 % High 47-70 [facility] Comment on above: Performed By: #### L 500.2500, L100.0100 #### [facility] [address] [place], [address] Nucleated RBC (Bld) [#/Vol] 0 10*3/uL Normal 0-5 [facility] Comment on above: Performed By: #### L 500.2500, L100.0100 #### [facility] [address] [place], [address] Platelet mean volume (Bld) [Entitic vol] 12.0 fL Normal 6.2-12.0 [facility] Comment on above: Performed By: #### L 500.2500, L100.0100 #### [facility] [address] [place], [address] Platelets (Bld) [#/Vol] 118 10*3/uL Low 150-450 [facility] Comment on above: Performed By: #### L 500.2500, L100.0100 #### [facility] [address] [place], [address] RBC (Bld) [#/Vol] 4.42 10*6/uL Normal 4.2-5.4 [facility] Comment on above: Performed By: #### L 500.2500, L100.0100 #### [facility] [address] [place], [address] RDW SD 53.7 fl High 35.1-43.9 [facility] Comment on above: Performed By: #### L 500.2500, L100.0100 #### [facility] [address] [place], [address] WBC (Bld) [#/Vol] 11.5 10*3/uL High 4.4-11.0 [facility] Comment on above: Performed By: #### L 500.2500, L100.0100 #### [facility] [address] [place], [place], [id number] Carbon dioxide, total [Moles /volume] in Central venous bloodOrdered By: Ted Toro on 08-09-2024 CO2 [Moles/Vol] 15.0 mmol/L Low 21.0-32.0 [facility] Chloride assayOrdered By: Deidre Toro on 08-09-2024 Chloride [Moles/Vol] 111 mmol/L High 98-108 [facility] Eosinophil percentageOrdered By: Ted Toro on 08-09-2024 Eosinophils/100 WBC (Bld) 0.2 % 0-5 [facility] Erythrocyte distribution wid th ratioOrdered By: Ted Troo on 08-09-2024 Erythrocyte distribution width (RBC) [Ratio] 15.9 % High 11.6-14.6 [facility] Erythrocyte distribution wid th standard deviationOrdered By: Ted Toro on 08-09-2024 Erythrocyte distribution width (RBC) [Ratio] 53.7 fl High 35.1-43.9 [facility] Glomerular filtration rate ( GFR) estimation/1.73 sq m using serum, plasma, or whole bOrdered By: Ted Toro on 08-09-2024 GFR/1.73 sq M.predicted among non-blacks MDRD (S/P/Bld) [Vol rate/Area] 39 mL/min/{1.73_m2} Low >60 [facility] Comment on above: mL/min/1.73m2 CKD-EP I Creatinine Equation (2020) Hematocrit Auto (Bld) [Volum e fraction]Ordered By: Ted Toro on 08-09-2024 Hematocrit (Bld) [Volume fraction] 40.4 % 37-47 [facility] Hemoglobin measurementOrdere d By: Ted Toro on 08-09-2024 Hemoglobin (Bld) [Mass/Vol] 13.3 g/dL 12.0-15.0 [facility] Immature granulocytes/100 WB C Auto (Bld)Ordered By: Ted Toro on 08-09-2024 Immature granulocytes/100 WBC (Bld) 1.600 % High 0.0-0.9 [facility] Comment on above: IG% - Immature Granu locytes (promyelocytes, myelocytes and metamyelocytes) > 1% indicates that a LEFT SHIFT is Present. MCV (mean corpuscular volume ) determinationOrdered By: Ted Toro on 08-09-2024 MCV (RBC) [Entitic vol] 91.4 fL 81-99 [facility] Mean corpuscular hemoglobin (MCH) determinationOrdered By: Ted Toro on 08-09-2024 MCH (RBC) [Entitic mass] 30.1 pg 27.0-32.0 [facility] Mean corpuscular hemoglobin concentration (MCHC) determinationOrdered By: Ted Toro on 08-09-2024 MCHC (RBC) [Mass/Vol] 32.9 g/dL 32-36 [facility] Mean platelet volume determi nationOrdered By: Ted Toro on 08-09-2024 Platelet mean volume (Bld) [Entitic vol] 12.0 fL 6.2-12.0 [facility] Monocyte percentageOrdered B y: Ted Toro on 08-09-2024 Monocytes/100 WBC (Bld) 9.5 % 0-10 [facility] Neutrophil percentageOrdered By: Ted Toro on 08-09-2024 Neutrophils/100 WBC (Bld) 81.0 % High 47-70 [facility] Nucleated red blood cell per centageOrdered By: Ted Toro on 08-09-2024 Nucleated RBC/100 WBC (Bld) [Ratio] 0 % 0-5 [facility] Platelet countOrdered By: Deidre Toro on 08-09-2024 Platelets (Bld) [#/Vol] 118 10*3/uL Low 150-450 [facility] Potassium measurement (mass/ volume)Ordered By: Ted Toro on 08-09-2024 Potassium (Unsp spec) [Mass/Vol] 4.9 mmol/L 3.3-5.1 [facility] RBC Auto (Bld) [#/Vol]Ordere d By: Ted Toro on 08-09-2024 RBC (Bld) [#/Vol] 4.42 10*6/uL 4.2-5.4 [facility] Serum creatinine measurement (mass/volume)Ordered By: Ted Toro on 08-09-2024 Creatinine [Mass/Vol] 1.35 mg/dL High 0.70-1.20 [facility] Serum glucose measurement (m ass/volume)Ordered By: Ted Toro on 08-09-2024 Glucose [Mass/Vol] 145 mg/dL High 70-99 [facility] Serum or plasma calcium scott urement (mass/volume)Ordered By: Ted Toro on 08-09-2024 Calcium [Mass/Vol] 8.5 mg/dL 7.6-11.0 [facility] Serum or plasma urea nitroge n measurement (mass/volume)Ordered By: Ted Toro on 08-09-2024 Urea nitrogen [Mass/Vol] 41 mg/dL High 4-19 [facility] Sodium levelOrdered By: Buddy Toro on 08-09-2024 Sodium [Moles/Vol] 137 mmol/L 133-145 [facility] Urine Cultureon 08-09-2024 [facility] Klebsiella aerogenes Foster Count >100,000 Klebsiella aerogenes: REACTION Cefepime Islt EMILIA <=0.12 cefTRIAXone Islt EMILIA <=0.25 S Ciprofloxacin Islt EMILIA <=0.06 S Gentamicin Islt EMILIA <=1 S levoFLOXacin Islt EMILAI <=0.12 S Meropenem Islt EMILIA <=0.25 S Nitrofurantoin Islt EMILIA 64 I Pip+Tazo Islt EMILIA 8 S TMP SMX Islt EMILIA <=20 S Normal [facility] Comment on above: Performed By: #### L 400.0001, M100.2200 #### [facility] [address] [place], [address] White blood cell (WBC) count Ordered By: Ted Toro on 08-09-2024 WBC (Bld) [#/Vol] 11.5 10*3/uL High 4.4-11.0 [facility] Ven[facility]lex [facility] Venous Duplex US - Spencer Extrem [facility] [address] [place] [address] Venous Duplex US - Spencer Extrem 08/09/24 0810 MR#: [id number] Acct: [id number] Name: LINDA PERALTA Rep #: [id number] : 1945 79 From: Scotty Barone MD [...] Silverio DO; Dr. Jairo Mitchell DO; Dr. Ted Toro MD; Dr. Amos Floyd MD Date Dictated: 08/09/24809 Date Transcribed: 08/09/241938 Baster Hand: Signed Normal [facility] 12 Lead EKGon 08-07-2024 12 Lead EKG [facility] Services [address] [place] [address] 12 Lead EKG 08/07/24 1554 MR#: [id number] Acct: [id number] Name: LINDA PERALTA Rep #: [id number] : 1945 79 From: Jordan Marte MD Attending Dr: Dr. Jairo Mitchell DO Status: DIS IN Ordering Dr: Obinna Frye MD Date: 08/07/24 Location: [facility] Sex: F C Admitted: [...] ECGs available Confirmed by ESTUARDO ZELAYA, JORDAN ([id number]), market editor BRANDIN MCCABE ([id number]) on 08/13/2024 2:03:41 PM Referred By: Nixon Silverio Confirmed By: JORDAN MARTE MD 08/13/24 1403 Date Jordan Marte MD CC: Dr. Nixon Silverio DO; Dr. Jairo Mitchell DO; Dr. Obinna Frye MD; Dr. Amos Floyd MD Signed Normal [facility] Abdomen/Pelvis without Conto n 08-07-2024 Abdomen/Pelvis without Cont [facility] Imaging Services [address] [place] [id number] Abdomen/Pelvis without Cont MR#: [id number] Acct: [id number] Name: LINDA PERALTA Rep #: [id number] : 1945 F 79 From: Omar Carrillo MD PCP: Dr. Amos Floyd MD Status: ADM IN Study: Abdomen/Pelvis without Cont Date of Exam: 07/21 10/14 Exam# [id number] Ordering Dr: Nixon Silverio DO PROCEDURE: ABDOMEN/PELVIS [...] consult for management. Colonic diverticulosis. Reading Location: [id number] CC: Dr. Nixon Silverio DO; Dr. Amos Floyd MD Baster Hand: Signed Normal [facility] Absolute lymphocyte countOrd ered By: Obinna Frye on 08-07-2024 Lymphocytes Auto (Unsp spec) [#/Vol] 2.26 10*3/uL 0.83-4.51 [facility] Absolute neutrophil countOrd ered By: Obinna Frye on 08-07-2024 Neutrophils (Bld) [#/Vol] 10.8 10*3/uL High 2.0-7.7 [facility] Anion gap in Serum or Plasma Ordered By: Obinna Frye on 08-07-2024 Anion gap [Moles/Vol] 15 mmol/L 5-15 [facility] Automated lymphocyte count a s percentage of total leukocytesOrdered By: Obinna Frye on 08-07-2024 Lymphocytes/100 WBC Auto (Unsp spec) 15.0 % Low 19-41 [facility] BUN/creatinine ratioOrdered By: Obinna Frye on 08-07-2024 Urea nitrogen/Creatinine [Mass ratio] 27.3 mg/mg High 10-20 [facility] Basophil percentageOrdered B y: Obinna Frye on 08-07-2024 Basophils/100 WBC (Bld) 0.9 % 0-1 [facility] Bilirubin Test strip Ql (U)O rdered By: Obinna Frye on 08-07-2024 Bilirubin Ql (U) Negative Negative [facility] Bilirubin, totalOrdered By: Obinna Frye on 08-07-2024 Bilirubin [Mass/Vol] 0.52 mg/dL 0.00-1.30 [facility] Blood cultureOrdered By: Obinna Frye on 08-07-2024 Bacteria identified Cx Nom (Bld) No growth in 5 days. [facility] Bacteria identified Cx Nom (Bld) No growth in 5 days. [facility] CBC W/Diff, Automatedon 07-21 Absolute Lymph 2.26 X10 3/uL Normal 0.83-4.51 [facility] Comment on above: Performed By: #### L 500.2500 #### [facility] [address] [place], [address] Absolute Neut 10.8 X10 3/uL High 2.0-7.7 [facility] Comment on above: Performed By: #### L 500.2500 #### [facility] [address] [place], [address] Basophils/100 WBC (Bld) 0.9 % Normal 0-1 [facility] Comment on above: Performed By: #### L 500.2500 #### [facility] [address] [place], [address] Eosinophils/100 WBC (Bld) 1.1 % Normal 0-5 [facility] Comment on above: Performed By: #### L 500.2500 #### [facility] [address] [place], [address] Erythrocyte distribution width (RBC) [Ratio] 15.6 % High 11.6-14.6 [facility] Comment on above: Performed By: #### L 500.2500 #### [facility] [address] [facility] [place], [address] Hematocrit (Bld) [Volume fraction] 46.5 % Normal 37-47 [facility] Comment on above: Performed By: #### L 500.2500 #### [facility] [address] [place], [address] Hemoglobin (Bld) [Mass/Vol] 15.2 g/dL High 12.0-15.0 [facility] Comment on above: Performed By: #### L 500.2500 #### [facility] [address] [place], [address] IG% 1.600 High 0.0-0.9 [facility] Comment on above: Result Comment: IG% - Immature Granulocytes (promyelocytes, myelocytes and metamyelocytes) > 1% indicates that a LEFT SHIFT is Present. Performed By: #### L 500.2500 #### [facility] [place], [address] Lymphocytes/100 WBC (Bld) 15.0 % Low 19-41 [facility] Comment on above: Performed By: #### L 500.2500 #### [facility] [place], [address] MCH (RBC) [Entitic mass] 29.7 pg Normal 27.0-32.0 [facility] Comment on above: Performed By: #### L 500.2500 #### [facility] [address] [place], [address] MCHC (RBC) [Mass/Vol] 32.7 g/dL Normal 32-36 [facility] Comment on above: Performed By: #### L 500.2500 #### [facility] [address] [place], [address] MCV (RBC) [Entitic vol] 91.0 fL Normal 81-99 [facility] Comment on above: Performed By: #### L 500.2500 #### [facility] [address] [place], [address] Monocytes/100 WBC (Bld) 9.7 % Normal 0-10 [facility] Comment on above: Performed By: #### L 500.2500 #### [facility] [address] [place], [address] Neutrophils/100 WBC (Bld) 71.7 % High 47-70 [facility] Comment on above: Performed By: #### L 500.2500 #### [facility] [address] [place], [address] Nucleated RBC (Bld) [#/Vol] 0 10*3/uL Normal 0-5 [facility] Comment on above: Performed By: #### L 500.2500 #### [facility] [address] [place], [address] Platelet mean volume (Bld) [Entitic vol] 11.9 fL Normal 6.2-12.0 [facility] Comment on above: Performed By: #### L 500.2500 #### [facility] [address] [place], [address] Platelets (Bld) [#/Vol] 193 10*3/uL Normal 150-450 [facility] Comment on above: Performed By: #### L 500.2500 #### [facility] [address] [place], [address] RBC (Bld) [#/Vol] 5.11 10*6/uL Normal 4.2-5.4 [facility] Comment on above: Performed By: #### L 500.2500 #### [facility] [address] [place], [address] RDW SD 52.4 fl High 35.1-43.9 [facility] Comment on above: Performed By: #### L 500.2500 #### [facility] [address] [place], [address] WBC (Bld) [#/Vol] 15.1 10*3/uL High 4.4-11.0 [facility] Comment on above: Performed By: #### L 500.2500 #### [facility] [address] [place], [address] Carbon dioxide, total [Moles /volume] in Central venous bloodOrdered By: Obinna Frye on 08-07-2024 CO2 [Moles/Vol] 14.6 mmol/L Low 21.0-32.0 [facility] Chloride assayOrdered By: Ug o Frye on 08-07-2024 Chloride [Moles/Vol] 107 mmol/L 98-108 [facility] Comprehensive Metabolic Prof ilon 08-07-2024 Albumin [Mass/Vol] 4.1 g/dL Normal 3.4-4.8 [facility] Comment on above: Performed By: #### L 500.2500 #### [facility] [address] [place], [address] Albumin/Globulin [Mass ratio] 1.8 {ratio} Normal 0.9-2.4 [facility] Comment on above: Performed By: #### L 500.2500 #### [facility] [address] [place], [address] ALK PHOS 102 U/L Normal 35-104 [facility] Comment on above: Performed By: #### L 500.2500 #### [facility] [address] [place], [address] ALT [Catalytic activity/Vol] 20 U/L Normal <=34 [facility] Comment on above: Performed By: #### L 500.2500 #### [facility] [address] [place], [address] AST [Catalytic activity/Vol] 27 U/L Normal <=31 [facility] Comment on above: Result Comment: Hemo lysis present, Results??could be affected. ?? Performed By: #### L 500.2500 #### [facility] [address] [place], [address] Bilirubin [Mass/Vol] 0.52 mg/dL Normal 0.00-1.30 [facility] Comment on above: Performed By: #### L 500.2500 #### [facility] [address] [place], [address] BUN/CRE 27.3 RATIO High 10-20 [facility] Comment on above: Performed By: #### L 500.2500 #### [facility] [address] [place], [address] Calcium [Mass/Vol] 9.9 mg/dL Normal 7.6-11.0 [facility] Comment on above: Performed By: #### L 500.2500 #### [facility] [address] [place], [address] Chloride [Moles/Vol] 107 mmol/L Normal 98-108 [facility] Comment on above: Performed By: #### L 500.2500 #### [facility] [address] [place], [address] CO2 [Moles/Vol] 14.6 mmol/L Low 21.0-32.0 [facility] Comment on above: Performed By: #### L 500.2500 #### [facility] [address] [place], [address] Creatinine [Mass/Vol] 1.59 mg/dL High 0.70-1.20 [facility] Comment on above: Performed By: #### L 500.2500 #### [facility] [address] [place], [address] ECRCL 25.08 ml/min Low 50-250 [facility] Comment on above: Performed By: #### L 500.2500 #### [facility] [address] [place], [address] GAP 15 Normal 5-15 [facility] Comment on above: Performed By: #### L 500.2500 #### [facility] [address] [place], [address] GFR/1.73 sq M.predicted among non-blacks MDRD (S/P/Bld) [Vol rate/Area] 32 mL/min/{1.73_m2} Low >60 [facility] Comment on above: Result Comment: mL/m in/1.73m2 CKD-EPI Creatinine Equation (2020) Performed By: #### L 500.2500 #### [facility] [address] [place], [address] Globulin (S) [Mass/Vol] 2.2 g/dL Normal 2.2-4.2 [facility] Comment on above: Performed By: #### L 500.2500 #### [facility] [address] [place], [address] Glucose [Mass/Vol] 139 mg/dL High 70-99 [facility] Comment on above: Performed By: #### L 500.2500 #### [facility] [address] [place], [address] Potassium [Moles/Vol] 4.5 mmol/L Normal 3.3-5.1 [facility] Comment on above: Result Comment: Hemo lysis present, Results??could be affected. ?? Performed By: #### L 500.2500 #### [facility] [address] [place], [address] Sodium [Moles/Vol] 137 mmol/L Normal 133-145 [facility] Comment on above: Performed By: #### L 500.2500 #### [facility] [address] [place], [address] T PROT 6.3 g/dL Normal 5.9-8.4 [facility] [place] [facility] Comment on above: Performed By: #### L 500.2500 #### [facility] [address] [place], [address] Urea nitrogen [Mass/Vol] 43 mg/dL High 06-08 [facility] Comment on above: Performed By: #### L 500.2500 #### [facility] [address] [place], [address] Emergency Department Summary on 08-07-2024 Emergency Department Summary [facility] Medical Records Department [address] [place] [address] Emergency Department Summary 08/07/24 MR#: [id number] Acct: [id number] Name: LINAD PERALTA Rep #: [id number] : 1945 79 From: Obinna Frye MD [...] Illness/Hospitalization: Yes (Cardiac catheterization earlier this week) [facility] Medical History MVP (mitral valve prolapse) Aortic stenosis Hypokalemia Elevated serum creatinine Acute prerenal azotemia History of kidney cancer Chronic kidney disease Hypercalcemia Frequent falls Closed head injury (03/20/20) Hypoglycemia (03/20/20) Acute electrocardiogram changes Atopic dermatitis Osteopenia determined by x-ray History of pulmonary embolism 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 Normal [facility] Eosinophil percentageOrdered By: Obinnamorales Frye on 08-07-2024 Eosinophils/100 WBC (Bld) 1.1 % 0-5 [facility] Erythrocyte distribution wid th ratioOrdered By: Obinnamorales Frye on 08-07-2024 Erythrocyte distribution width (RBC) [Ratio] 15.6 % High 11.6-14.6 [facility] Erythrocyte distribution wid th standard deviationOrdered By: [facility] Erythrocyte distribution width (RBC) [Ratio] 52.4 fl High 35.1-43.9 [facility] Ferritinon 08-07-2024 Ferritin [Mass/Vol] 107 ng/mL Normal 22-378 [facility] Comment on above: Performed By: #### L 500.4610 #### [facility] [address] [place], [place], [id number] Glomerular filtration rate ( GFR) estimation/1.73 sq m using serum, plasma, or whole bOrdered By: Obinna Frye on 08-07-2024 GFR/1.73 sq M.predicted among non-blacks MDRD (S/P/Bld) [Vol rate/Area] 32 mL/min/{1.73_m2} Low >60 [facility] Comment on above: mL/min/1.73m2 CKD-EP I Creatinine Equation (2020) H AND P Exam - [facility] 08-07-2024 H&P Exam - Hospitalist [facility] Medical Records Department [address] [place] [address] H P Exam - Hospitalist 08/07/241930 MR#: [id number] Acct: [id number] Name: LINDA PERALTA Rep #: [id number] : 1945 79 From: Nixon Silverio DO PCP: Dr. 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 Ms. [...] 5 days in preparation for her recent [facility] with patient recently just having 1 dose [...] is expected to extend beyond 2 midnights. [facility] Medical History MVP (mitral valve prolapse) Aortic stenosis Hypokalemia Elevated serum creatinine Acute prerenal azotemia History of kidney cancer Chronic kidney disease Hypercalcemia Frequent falls Closed head injury (03/20/20) Hypoglycemia (03/20/20) Acute electrocardiogram changes Atopic dermatitis Osteopenia determined by x-ray History of pulmonary embolism jail (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 Orthostatic hypotension Chronic kidney disease, stage 3 Lares disease Essential (primary) hypertension Hyperlipidemia Recurrent deep [...] denosumab 60 mg/mL subcutaneous 60 mg subcut [id number] #1 mL Unknown Rx syringe (Prolia) hydrocortisone [...] Myocardial infar (more content not included)... Normal [facility] Hematocrit Auto (Bld) [Volum e fraction]Ordered By: Obinna Frye on 08-07-2024 Hematocrit (Bld) [Volume fraction] 46.5 % 37-47 [facility] Hemoglobin measurementOrdere d By: Obinna Frye on 08-07-2024 Hemoglobin (Bld) [Mass/Vol] 15.2 g/dL High 12.0-15.0 [facility] Immature granulocytes/100 WB C Auto (Bld)Ordered By: Obinna Frye on 08-07-2024 Immature granulocytes/100 WBC (Bld) 1.600 % High 0.0-0.9 [facility] Comment on above: IG% - Immature Granu locytes (promyelocytes, myelocytes and metamyelocytes) > 1% indicates that a LEFT SHIFT is Present. International normalized rat io (INR) calculationOrdered By: Nixon Brizuela on 08-07-2024 INR Coag (Bld) [Relative time] 1.1 {INR} [facility] Iron measurement (mass/mass) Ordered By: Nixon Brizuela on 08-07-2024 Iron (Unsp spec) [Mass/Mass] 55 ug/dL 50-170 [facility] Iron+Iron Binding Capacityon 08-07-2024 Iron [Mass/Vol] 55 ug/dL Normal 50-170 [facility] Comment on above: Performed By: #### L 500.2500 #### [facility] [address] [place], [address] IRON SATURATION 19.0 Normal 13-59 [facility] Comment on above: Performed By: #### L 500.2500 #### [facility] [address] [place], [address] TIBC 295 ug/dL Normal 250-450 [facility] Comment on above: Performed By: #### L 500.2500 #### [facility] [address] [place], [address] UIBC 240 ug/dL Normal 228-428 [facility] Comment on above: Result Comment: Hemo lysis present, Results??could be affected. ?? Performed By: #### L 500.2500 #### [facility] [address] [place], [address] Ketones Test strip Ql (U)Ord ered By: Obinna Frye on 08-07-2024 Ketones Ql (U) Negative Negative [facility] L499.0042on 08-07-2024 Trop T High Sen 55 ng/L Invalid Interpretation Code <=14 [facility] Comment on above: Result Comment: Crit ical Result(s) Called at: 1847 by: TOY DE LA TORRE??Results read back by same. Performed By: #### L 499.0042 ####[facility] [address] [place], [address] L499.0043on 08-07-2024 Trop T High Sen 52 ng/L High <=14 [facility] Comment on above: Result Comment: Crit ical Result(s) Called at: 2157 by:??TOY HECKNER Results read back by same. Performed By: #### L 499.0043 #### [facility] [address] [place], [address] L501.4021on 08-07-2024 Trop T High Sen 60 ng/L Invalid Interpretation Code <=14 [facility] Comment on above: Result Comment: Crit ical Result(s) Called at: 1736 by: TOY BUNCH TO JOHN IBARRA??Results read back by same. Performed By: #### L 501.4021, M200.1000 ####[facility] [address] [place], [place], [address] L509.6002on 08-07-2024 CORTISOL 12.00 ug/dL High 2.68-10.50 [facility] Comment on above: Performed By: #### L 500.2500 #### [facility] [address] [place], [place], [address] Laboratory - Chemistry and C hemistry - challengeOrdered By: Obinna Frye on 08-07-2024 AST [Catalytic activity/Vol] 27 U/L <32 [facility] Comment on above: Hemolysis present, R esults could be affected. Lactic Acidon 08-07-2024 Lactate [Moles/Vol] mmol/L Normal 0.0-2.0 [facility] Comment on above: Order Comment: Comme nts: if result >2, system reflex orders 2nd test @ 4hrsY Performed By: #### L 500.2500 #### [facility] [address] [place], [place], [address] Lactic acid measurementOrder ed By: Nixon Brizuela on 08-07-2024 Lactate [Moles/Vol] mmol/L 0.0-2.0 [facility] MCV (mean corpuscular volume ) determinationOrdered By: Obinna Frye on 08-07-2024 MCV (RBC) [Entitic vol] 91.0 fL 81-99 [facility] Mean corpuscular hemoglobin (MCH) determinationOrdered By: Obinna Frye on 08-07-2024 MCH (RBC) [Entitic mass] 29.7 pg 27.0-32.0 [facility] Mean corpuscular hemoglobin concentration (MCHC) determinationOrdered By: Obinna Frye on 08-07-2024 MCHC (RBC) [Mass/Vol] 32.7 g/dL 32-36 [facility] Mean platelet volume determi nationOrdered By: Obinna Frye on 08-07-2024 Platelet mean volume (Bld) [Entitic vol] 11.9 fL 6.2-12.0 [facility] Microscopic analysis of urin e for red blood cells (RBC)Ordered By: Obinna Frye on 08-07-2024 Microscopic analysis of urine for red blood cells (RBC) 0-5 SEEN /hpf 0-5 [facility] Monocyte percentageOrdered B y: Obinna Frye on 08-07-2024 Monocytes/100 WBC (Bld) 9.7 % 0-10 [facility] Mucus LM Ql (Urine sed)Order ed By: Obinna Frye on 08-07-2024 Mucus Ql (Urine sed) 0 SEEN /hpf [facility] Neutrophil percentageOrdered By: Obinna Frye on 08-07-2024 Neutrophils/100 WBC (Bld) 71.7 % High 47-70 [facility] Nitrite Test strip Ql (U)Ord ered By: Obinna Frye on 08-07-2024 Nitrite Ql (U) Positive High Negative [facility] No Panel InformationOrdered By: Nixon Brizuela on 08-07-2024 Unsaturated Iron Binding Capacity 240 ug/dL 228-428 [facility] Comment on above: Hemolysis present, R esults could be affected. Nucleated red blood cell per centageOrdered By: Obinna Frye on 08-07-2024 Nucleated RBC/100 WBC (Bld) [Ratio] 0 % 0-5 [facility] Platelet countOrdered By: Shashank Frye on 08-07-2024 Platelets (Bld) [#/Vol] 193 10*3/uL 150-450 [facility] Potassium measurement (mass/ volume)Ordered By: Obinna Frye on 08-07-2024 Potassium (Unsp spec) [Mass/Vol] 4.5 mmol/L 3.3-5.1 [facility] Comment on above: Hemolysis present, R esults could be affected. Protein Test strip Ql (U)Ord ered By: Obinna Frye on 08-07-2024 Protein Ql (U) 30 mg/dl High Negative [facility] Prothrombin Time w/INRon INR Coag (PPP) [Relative time] 1.1 {INR} Normal [facility] Comment on above: Performed By: #### L 500.2500 #### [facility] [address] [place], [place], [id number] PT Coag (PPP) [Time] 14.9 s Normal 11.7-14.9 [facility] Comment on above: Performed By: #### L 500.2500 #### [facility] [address] [place], [place], [id number] Prothrombin timeOrdered By: Nixon Brizuela on 08-07-2024 PT Coag (PPP) [Time] 14.9 s 11.7-14.9 [facility] RBC Auto (Bld) [#/Vol]Ordere d By: Obinna Frye on 08-07-2024 RBC (Bld) [#/Vol] 5.11 10*6/uL 4.2-5.4 [facility] Serum creatinine measurement (mass/volume)Ordered By: Obinna Frye on 08-07-2024 Creatinine [Mass/Vol] 1.59 mg/dL High 0.70-1.20 [facility] Serum globulin measurementOr dered By: Obinna Frye on 08-07-2024 Globulin (S) [Mass/Vol] 2.2 g/dL 2.2-4.2 [facility] Serum glucose measurement (m ass/volume)Ordered By: Obinna Frye on 08-07-2024 Glucose [Mass/Vol] 139 mg/dL High 70-99 [facility] Serum or plasma alanine evans otransferase (ALT) measurementOrdered By: Obinna Frye on 08-07-2024 ALT [Catalytic activity/Vol] 20 U/L <35 [facility] Serum or plasma albumin scott urement (mass/volume)Ordered By: Obinna Frye on 08-07-2024 Albumin [Mass/Vol] 4.1 g/dL 3.4-4.8 [facility] Serum or plasma albumin/glob ulin mass ratioOrdered By: Obinnamorales Frye on 08-07-2024 Albumin/Globulin [Mass ratio] 1.8 {ratio} 0.9-2.4 [facility] Serum or plasma alkaline bárbara sphatase measurementOrdered By: Obinnamorales Frye on 08-07-2024 ALP [Catalytic activity/Vol] 102 U/L 35-104 [facility] Serum or plasma calcium scott urement (mass/volume)Ordered By: Obinnamorales Frye on 08-07-2024 Calcium [Mass/Vol] 9.9 mg/dL 7.6-11.0 [facility] Serum or plasma cortisol marely surement (mass/volume)Ordered By: Nixon Brizuela on 08-07-2024 Cortisol [Mass/Vol] 12.00 ug/dL High 2.68-10.50 [facility] Serum or plasma ferritin marely surement (mass/volume)Ordered By: Nixon Brizuela on 08-07-2024 Ferritin [Mass/Vol] 107 ng/mL 22-378 [facility] Serum or plasma iron saturat ion measurement (mass fraction)Ordered By: Nixon Brizuela on 08-07-2024 Iron saturation [Mass fraction] 19.0 % 13-59 [facility] Serum or plasma urea nitroge n measurement (mass/volume)Ordered By: Obinna Frye on 08-07-2024 Urea nitrogen [Mass/Vol] 43 mg/dL High 4-19 [facility] Sodium levelOrdered By: Obinna Frye on 08-07-2024 Sodium [Moles/Vol] 137 mmol/L 133-145 [facility] Squamous epithelial cells de tection in urine sediment by light microscopyOrdered By: Obinna Frye on 08-07-2024 Epithelial cells.squamous LM Ql (Urine sed) 0 SEEN /hpf 5-10 [facility] TSH DL <= 0.005 mIU/L QnOrde red By: Nixon Brizuela on 08-07-2024 TSH Qn 1.030 uIU/mL 0.300-4.200 [facility] Thyroid Stim Hormone (TSH)on 08-07-2024 TSH 1.030 uIU/mL Normal 0.300-4.200 [facility] Comment on above: Performed By: #### L 500.2500 #### [facility] [address] [place], [address] Total proteinOrdered By: Obinna Frye on 08-07-2024 Protein [Mass/Vol] 6.3 g/dL 5.9-8.4 [facility] Troponin T.cardiac [Mass/vol ume] in Serum or Plasma by High sensitivity methodOrdered By: Obinna Frye on 08-07-2024 Troponin T.cardiac High sensitivity method [Mass/Vol] 52 ng/L High <14 [facility] Comment on above: Critical Result(s) C alled at: 2158 by: TOY BUNCH TO ABENA JASSO Results read back by same. Troponin T.cardiac High sensitivity method [Mass/Vol] 55 ng/L Critically high <14 [facility] Comment on above: Critical Result(s) C alled at: 1847 by: TOY BUNCH TO NAKIA DE LA TORRE Results read back by same. Troponin T.cardiac High sensitivity method [Mass/Vol] 60 ng/L Critically high <14 [facility] Comment on above: Critical Result(s) C alled at: 1736 by: TOY BUNCH TO JOHN IBARRA Results read back by same. Type AND Screenon 08-07-2024 Ab SCREEN GEL Negative Normal [facility] Comment on above: Order Comment: Has p t arrived? YHGI Performed By: #### B TS ####[facility] [address] [place], [place], [id number] Urinalysis, Completeon 08-07 BACTERIA 3+ /hpf Normal None Seen [facility] Comment on above: Order Comment: CLEAN CATCH Performed By: #### L 400.0001, M100.2200 #### [facility] [address] [place], [place], [id number] RBC 0-5 SEEN Normal 0-5 [facility] Comment on above: Order Comment: CLEAN CATCH Performed By: #### L 400.0001, M100.2200 #### [facility] [address] [place], [address] WBC 5-10 SEEN Normal 0-5 [facility] Comment on above: Order Comment: CLEAN CATCH Performed By: #### L 400.0001, M100.2200 #### [facility] [address] [place], [address] EPI,SQUAMOUS 0 SEEN Normal 5-10 [facility] Comment on above: Order Comment: CLEAN CATCH Performed By: #### L 400.0001, M100.2200 #### [facility] [address] [place], [address] Mucus Ql (Urine sed) 0 SEEN Normal [facility] Comment on above: Order Comment: CLEAN CATCH Performed By: #### L 400.0001, M100.0 #### [facility] [address] [place], [address] Urine clarityOrdered By: Obinna Frye on 08-07-2024 Clarity (U) Clear Clear [facility] Urine color determinationOrd ered By: Obinna Frye on 08-07-2024 Color (U) Yellow Yellow [facility] Urine cultureOrdered By: Obinna Frye on 08-07-2024 Bacteria identified Cx Nom (U) Klebsiella aerogenes Abnormal [facility] Urine glucose detectionOrder ed By: Obinna Frye on 08-07-2024 Glucose Ql (U) Normal mg/dl Normal [facility] Urine leukocyte esterase det ection by dipstickOrdered By: Obinna Frye on 08-07-2024 Leukocyte esterase Test strip Ql (U) 25 /ul High Negative [facility] Urine pHOrdered By: Obinna nielsen on 08-07-2024 pH (U) 6.0 [pH] 5.0 - 8.0 [facility] Urine sediment bacteria coun t by microscopy (number/high power field)Ordered By: Obinna Frye on 08-07-2024 Bacteria LM.HPF (Urine sed) [#/Area] 3 /[HPF] None Seen [facility] Urine specific gravity measu rementOrdered By: Obinnamorales Frye on 08-07-2024 Specific gravity (U) [Rel density] 1.015 1.002-1.030 [facility] Urine urobilinogen measureme ntOrdered By: Obinna Frye on 08-07-2024 Urobilinogen Ql (U) Normal mg/dl Normal [facility] White blood cell (WBC) count Ordered By: Obinna Frye on 08-07-2024 WBC (Bld) [#/Vol] 15.1 10*3/uL High 4.4-11.0 [facility] White blood cell countOrdere d By: Obinna Frye on 08-07-2024 White blood cell count 5-10 SEEN /hpf 0-5 [facility] Anion gap in Serum or Plasma Ordered By: Jordan Estuardo on 08-05-2024 Anion gap [Moles/Vol] 12 mmol/L 5-15 [facility] BUN/creatinine ratioOrdered By: [place] Estuardo on 08-05-2024 Urea nitrogen/Creatinine [Mass ratio] 23.7 mg/mg High 10-20 [facility] Basic Metabolic Profile (BMP )on 08-05-2024 BUN/CRE 23.7 RATIO High 10-20 [facility] Comment on above: Performed By: #### L 500.2500, L100.0100 #### [facility] [address] [place], [address] Calcium [Mass/Vol] 9.8 mg/dL Normal 7.6-11.0 [facility] Comment on above: Performed By: #### L 500.2500, L100.0100 #### [facility] [address] [place], [address] Chloride [Moles/Vol] 111 mmol/L High 98-108 [facility] Comment on above: Performed By: #### L 500.2500, L100.0100 #### [facility] [address] [place], [address] CO2 [Moles/Vol] 17.0 mmol/L Low 21.0-32.0 [facility] Comment on above: Performed By: #### L 500.2500, L100.0100 #### [facility] [address] [place], [address] Creatinine [Mass/Vol] 1.55 mg/dL High 0.70-1.20 [facility] Comment on above: Performed By: #### L 500.2500, L100.0100 #### [facility] [address] [place], [address] ECRCL 25.41 ml/min Low 50-250 [facility] Comment on above: Performed By: #### L 500.2500, L100.0100 #### [facility] [address] [place], [address] GAP 12 Normal 5-15 [facility] Comment on above: Performed By: #### L 500.2500, L100.0100 #### [facility] [address] [place], [address] GFR/1.73 sq M.predicted among non-blacks MDRD (S/P/Bld) [Vol rate/Area] 33 mL/min/{1.73_m2} Low >60 [facility] Comment on above: Result Comment: mL/m in/1.73m2 CKD-EPI Creatinine Equation (2020) Performed By: #### L 500.2500, L100.0100 #### [facility] [address] [place], [address] Glucose [Mass/Vol] 96 mg/dL Normal 70-99 [facility] Comment on above: Performed By: #### L 500.2500, L100.0100 #### [facility] [address] [place], [address] Potassium [Moles/Vol] 4.5 mmol/L Normal 3.3-5.1 [facility] Comment on above: Result Comment: Hemo lysis present, Results??could be affected. ?? Performed By: #### L 500.2500, L100.0100 #### [facility] [address] [place], [address] Sodium [Moles/Vol] 140 mmol/L Normal 133-145 [facility] Comment on above: Performed By: #### L 500.2500, L100.0100 #### [facility] [address] [place], [address] Urea nitrogen [Mass/Vol] 37 mg/dL High 4-19 [facility] Comment on above: Performed By: #### L 500.2500, L100.0100 #### [facility] [address] [place], [address] Carbon dioxide, total [Moles /volume] in Central venous bloodOrdered By: Jordan Marte on 08-05-2024 CO2 [Moles/Vol] 17.0 mmol/L Low 21.0-32.0 [facility] Chloride assayOrdered By: Jorge L Marte on 08-05-2024 Chloride [Moles/Vol] 111 mmol/L High 98-108 [facility] Glomerular filtration rate ( GFR) estimation/1.73 sq m using serum, plasma, or whole bOrdered By: Jordan Marte on 08-05-2024 GFR/1.73 sq M.predicted among non-blacks MDRD (S/P/Bld) [Vol rate/Area] 33 mL/min/{1.73_m2} Low >60 [facility] Comment on above: mL/min/1.73m2 CKD-EP I Creatinine Equation (2020) International normalized rat io (INR) calculationOrdered By: Jordan Marte on 08-05-2024 INR Coag (Bld) [Relative time] 1.0 {INR} [facility] Potassium measurement (mass/ volume)Ordered By: Jordan Marte on 08-05-2024 Potassium (Unsp spec) [Mass/Vol] 4.5 mmol/L 3.3-5.1 [facility] Comment on above: Hemolysis present, R esults could be affected. Prothrombin Time w/INRon INR Coag (PPP) [Relative time] 1.0 {INR} Normal [facility] Comment on above: Performed By: #### L 500.2500, L100.0100 #### [facility] [address] [place], [address] PT Coag (PPP) [Time] 13.1 s Normal 11.7-14.9 [facility] Comment on above: Performed By: #### L 500.2500, L100.0100 #### [facility] [address] [place], [address] Prothrombin timeOrdered By: Jordan Marte on 08-05-2024 PT Coag (PPP) [Time] 13.1 s 11.7-14.9 [facility] Serum creatinine measurement (mass/volume)Ordered By: Jordan Marte on 08-05-2024 Creatinine [Mass/Vol] 1.55 mg/dL High 0.70-1.20 [facility] Serum glucose measurement (m ass/volume)Ordered By: Jordan Marte on 08-05-2024 Glucose [Mass/Vol] 96 mg/dL 70-99 [facility] Serum or plasma calcium scott urement (mass/volume)Ordered By: Jordan Marte on 08-05-2024 Calcium [Mass/Vol] 9.8 mg/dL 7.6-11.0 [facility] Serum or plasma urea nitroge n measurement (mass/volume)Ordered By: Jordan Marte on 08-05-2024 Urea nitrogen [Mass/Vol] 37 mg/dL High 4-19 [facility] Sodium levelOrdered By: Jarocho Marte on 08-05-2024 Sodium [Moles/Vol] 140 mmol/L 133-145 [facility] CNOVon 07-24-2024 CNOV Office Visit (INTMWS ) -------- LINDA PERALTA ([id number]) 1945 F Date Time Provider Department 07/24/24 11:00 AM AMOS FLOYD INTMWS During your visit today, we recorded the following information about you: Pulse Respiration Blood pressure Weight 80/minute 20/minute 126/82 65.8 kg Amos Floyd MD 07/24/2024 12:45 PM Signed This note was created using [employer]. Subjective Linda Peralta is a 79 year old female. Recording using [employer] software for draft documentation of the visit was discussed with the patient/authorized farm loan representative; all questions welcomed and answered. Patient/authorized farm loan representative agreed to proceed Heart Murmur: - [...] - Evelia (more content not included)... Normal [facility] Absolute lymphocyte countOrd ered By: Jordan Marte on 07-23-2024 Lymphocytes Auto (Unsp spec) [#/Vol] 1.15 10*3/uL 0.83-4.51 [facility] Absolute neutrophil countOrd ered By: Jordan Marte on 07-23-2024 Neutrophils (Bld) [#/Vol] 8.1 10*3/uL High 2.0-7.7 [facility] Activated partial thrombopla stin time (aPTT) in platelet poor plasma by coagulation aOrdered By: Jordan Marte on 07-23-2024 aPTT Coag (PPP) [Time] 33.9 s 24.1-36.2 [facility] Automated lymphocyte count a s percentage of total leukocytesOrdered By: Jordan Marte on 07-23-2024 Lymphocytes/100 WBC Auto (Unsp spec) 11.0 % Low 19-41 [facility] Basic Metabolic Profile (BMP )on 07-23-2024 BUN/CRE 28.1 RATIO High 10-20 [facility] Comment on above: Order Comment: Do al chris with PT/INR in 1 week Performed By: #### L 9200.0000 #### [facility] [address] [place], [place], [id number] Calcium [Mass/Vol] 10.4 mg/dL Normal 7.6-11.0 [facility] Comment on above: Order Comment: Do al chris with PT/INR in 1 week Performed By: #### L 9200.0000 #### [facility] [address] [place], [address] Chloride [Moles/Vol] 108 mmol/L Normal 98-108 [facility] Comment on above: Order Comment: Do al chris with PT/INR in 1 week Performed By: #### L 9200.0000 #### [facility] [address] [place], [address] CO2 [Moles/Vol] 21.6 mmol/L Normal 21.0-32.0 [facility] Comment on above: Order Comment: Do al chris with PT/INR in 1 week Performed By: #### L 9200.0000 #### [facility] [address] [place], [address] Creatinine [Mass/Vol] 1.60 mg/dL High 0.70-1.20 [facility] Comment on above: Order Comment: Do al chris with PT/INR in 1 week Performed By: #### L 9200.0000 #### [facility] [address] [place], [address] GAP 12 Normal 5-15 [facility] Comment on above: Order Comment: Do al chris with PT/INR in 1 week Performed By: #### L 9200.0000 #### [facility] [address] [place], [address] GFR/1.73 sq M.predicted among non-blacks MDRD (S/P/Bld) [Vol rate/Area] 32 mL/min/{1.73_m2} Low >60 [facility] Comment on above: Order Comment: Do al chris with PT/INR in 1 week Result Comment: mL/m in/1.73m2 CKD-EPI Creatinine Equation (2020) Performed By: #### L 9200.0000 #### [facility] [address] [place], [address] Glucose [Mass/Vol] 93 mg/dL Normal 70-99 [facility] Comment on above: Order Comment: Do al chris with PT/INR in 1 week Performed By: #### L 9200.0000 #### [facility] [address] [place], [address] Potassium [Moles/Vol] 5.1 mmol/L Normal 3.3-5.1 [facility] Comment on above: Order Comment: Do al chris with PT/INR in 1 week Result Comment: Hemo lysis present, Results??could be affected. ?? Performed By: #### L 9200.0000 #### [facility] [address] [place], [address] Sodium [Moles/Vol] 142 mmol/L Normal 133-145 [facility] Comment on above: Order Comment: Do al chris with PT/INR in 1 week Performed By: #### L 9200.0000 #### [facility] [address] [place], [address] Urea nitrogen [Mass/Vol] 45 mg/dL High 4-19 [facility] Comment on above: Order Comment: Do al chris with PT/INR in 1 week Performed By: #### L 9200.0000 #### [facility] [address] [place], [address] Basophil percentageOrdered B y: [place] Estuardo on 07-23-2024 Basophils/100 WBC (Bld) 0.4 % 0-1 [facility] CBC W/Diff, Automatedon Absolute Lymph 1.15 X10 3/uL Normal 0.83-4.51 [facility] Comment on above: Performed By: #### L 100.0100, L300.3900, L500.2500, L300.4310 ####[facility] [address] [place], [address] Absolute Neut 8.1 X10 3/uL High 2.0-7.7 [facility] Comment on above: Performed By: #### L 100.0100, L300.3900, L500.2500, L300.4310 ####[facility] [address] [place], [address] Basophils/100 WBC (Bld) 0.4 % Normal 0-1 [facility] Comment on above: Performed By: #### L 100.0100, L300.3900, L500.2500, L300.4310 ####[facility] [address] [place], [address] Eosinophils/100 WBC (Bld) 0.9 % Normal 0-5 [facility] Comment on above: Performed By: #### L 100.0100, L300.3900, L500.2500, L300.4310 ####[facility] [address] [place], [address] Erythrocyte distribution width (RBC) [Ratio] 15.7 % High 11.6-14.6 [facility] Comment on above: Performed By: #### L 100.0100, L300.3900, L500.2500, L300.4310 ####[facility] [address] [place], [address] Hematocrit (Bld) [Volume fraction] 50.1 % High 37-47 [facility] Comment on above: Performed By: #### L 100.0100, L300.3900, L500.2500, L300.4310 ####[facility] [address] [place], [address] Hemoglobin (Bld) [Mass/Vol] 16.3 g/dL High 12.0-15.0 [facility] Comment on above: Performed By: #### L 100.0100, L300.3900, L500.2500, L300.4310 ####[facility] [address] [place], [address] IG% 0.900 Normal 0.0-0.9 [facility] Comment on above: Result Comment: IG% - Immature Granulocytes (promyelocytes, myelocytes and metamyelocytes) > 1% indicates that a LEFT SHIFT is Present. Performed By: #### L 100.0100, L300.3900, L500.2500, L300.4310 ####[facility] [address] [place], [address] Lymphocytes/100 WBC (Bld) 11.0 % Low 19-41 [facility] Comment on above: Performed By: #### L 100.0100, L300.3900, L500.2500, L300.4310 ####[facility] [address] [place], [address] MCH (RBC) [Entitic mass] 29.9 pg Normal 27.0-32.0 [facility] Comment on above: Performed By: #### L 100.0100, L300.3900, L500.2500, L300.4310 ####[facility] [address] [place], [address] MCHC (RBC) [Mass/Vol] 32.5 g/dL Normal 32-36 [facility] Comment on above: Performed By: #### L 100.0100, L300.3900, L500.2500, L300.4310 ####[facility] [address] [place], [address] MCV (RBC) [Entitic vol] 91.9 fL Normal 81-99 [facility] Comment on above: Performed By: #### L 100.0100, L300.3900, L500.2500, L300.4310 ####[facility] [address] [place], [address] Monocytes/100 WBC (Bld) 9.0 % Normal 0-10 [facility] Comment on above: Performed By: #### L 100.0100, L300.3900, L500.2500, L300.4310 ####[facility] [address] [place], [address] Neutrophils/100 WBC (Bld) 77.8 % High 47-70 [facility] Comment on above: Performed By: #### L 100.0100, L300.3900, L500.2500, L300.4310 ####[facility] [address] [place], [address] Nucleated RBC (Bld) [#/Vol] 0 10*3/uL Normal 0-5 [facility] Comment on above: Performed By: #### L 100.0100, L300.3900, L500.2500, L300.4310 ####[facility] [address] [place], [address] Platelet mean volume (Bld) [Entitic vol] 11.8 fL Normal 6.2-12.0 [facility] Comment on above: Performed By: #### L 100.0100, L300.3900, L500.2500, L300.4310 ####[facility] [address] [place], [address] Platelets (Bld) [#/Vol] 222 10*3/uL Normal 150-450 [facility] Comment on above: Performed By: #### L 100.0100, L300.3900, L500.2500, L300.4310 ####[facility] [address] [place], [address] RBC (Bld) [#/Vol] 5.45 10*6/uL High 4.2-5.4 [facility] Comment on above: Performed By: #### L 100.0100, L300.3900, L500.2500, L300.4310 ####[facility] [address] [place], [address] RDW SD 52.5 fl High 35.1-43.9 [facility] Comment on above: Performed By: #### L 100.0100, L300.3900, L500.2500, L300.4310 ####[facility] [address] [place], [address] WBC (Bld) [#/Vol] 10.5 10*3/uL Normal 4.4-11.0 [facility] Comment on above: Performed By: #### L 100.0100, L300.3900, L500.2500, L300.4310 ####[facility] [address] [place], [address] Cardiology Visit Reporton Cardiology Visit Report [facility] [address] [place], [place] [address] OFFICE VISIT Date of Service: 07/23/24 MR#: [id number] Acct: [id number] Name: LINDA PERALTA Rep #: [id number] : 1945 Provider: PEDRO samuel Age/Sex: 79/F Location: [facility] Status: Signed HPI HPI History of Present [...] with mod-severe aortic stenosis. 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 Is patient in pain?: No Allergies ciprofloxacin (From Cipro) Allergy (Verified 07/23/24 08:14) Rash Penicillins Allergy (Verified 07/23/24 08:14) Rash Medications ???Medication ???Instructions ???Recorded ???Confirmed ???Type acetaminophen 500 mg tablet 1,000 mg (2 x 500 mg) PO Q6H PRN 0 04/08/20 07/23/24 Rx Pain Score 1-10 denosumab 60 mg/mL subcutaneous 60 mg subcut [id number] #1 mL 07/23/24 Rx syringe (Prolia) hydrocortisone [...] No Nurse's Note: heart cath august 05 [facility] Medical History MVP (mitral valve prolapse) Aortic stenosis Hypokalemia Elevated serum creatinine Acute prerenal azotemia History of kidney cancer Chronic kidney disease Hypercalcemia Frequent falls Closed head injury (03/20/20) Hypoglycemia (03/20/20) Acute electrocardiogram changes Atopic dermatitis Osteopenia determined by x-ray History of pulmonary embolism jail (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 Orthostatic hypotension Chronic [...] Other History of DVT (deep vein thrombosis) 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 Normal [facility] Chest PA and Lateralon 07-23 Chest PA and Lateral [facility] [address] [place] [address] Chest PA and Lateral MR#: [id number] Acct: [id number] Name: LINDA PERALTA Rep #: [id number] : 1945 F 79 From: Yony Gaitan PCP: Dr. Amos Floyd MD Status: PRE [facility] Study: Chest PA and Lateral Date of Exam: 07/23/24 Exam# [id number] Ordering Dr: Heaven Bolton MANAGER LIFE SCIENCES MANAGER LIFE SCIENCES- C PROCEDURE: CHEST PA AND LATERAL 07/23/2024 [...] pulmonary vascular congestion. Mild cardiomegaly. Reading Location: [id number] CC: MANAGER LIFE SCIENCES-C Heaven Bolton; Dr. Amos Floyd MD Baster Hand: Signed Normal [facility] Eosinophil percentageOrdered By: Jordan Marte on 07-23-2024 Eosinophils/100 WBC (Bld) 0.9 % 0-5 [facility] Erythrocyte distribution wid th ratioOrdered By: Jordan Marte on 07-23-2024 Erythrocyte distribution width (RBC) [Ratio] 15.7 % High 11.6-14.6 [facility] Erythrocyte distribution wid th standard deviationOrdered By: Jordan Marte on 07-23-2024 Erythrocyte distribution width (RBC) [Ratio] 52.5 fl High 35.1-43.9 [facility] Hematocrit Auto (Bld) [Volum e fraction]Ordered By: Jordan Marte on 07-23-2024 Hematocrit (Bld) [Volume fraction] 50.1 % High 37-47 [facility] Hemoglobin measurementOrdere d By: Jordan Marte on 07-23-2024 Hemoglobin (Bld) [Mass/Vol] 16.3 g/dL High 12.0-15.0 [facility] Immature granulocytes/100 WB C Auto (Bld)Ordered By: Jordan Marte on 07-23-2024 Immature granulocytes/100 WBC (Bld) 0.900 % 0.0-0.9 [facility] Comment on above: IG% - Immature Granu locytes (promyelocytes, myelocytes and metamyelocytes) > 1% indicates that a LEFT SHIFT is Present. MCV (mean corpuscular volume ) determinationOrdered By: [place] Estuardo on 07-23-2024 MCV (RBC) [Entitic vol] 91.9 fL 81-99 [facility] Mean corpuscular hemoglobin (MCH) determinationOrdered By: [place] Estuardo on 07-23-2024 MCH (RBC) [Entitic mass] 29.9 pg 27.0-32.0 [facility] Mean corpuscular hemoglobin concentration (MCHC) determinationOrdered By: Jordan Estuardo on 07-23-2024 MCHC (RBC) [Mass/Vol] 32.5 g/dL 32-36 [facility] Mean platelet volume determi nationOrdered By: [place] Estuardo on 07-23-2024 Platelet mean volume (Bld) [Entitic vol] 11.8 fL 6.2-12.0 [facility] Monocyte percentageOrdered B y: Jordan Estuardo on 07-23-2024 Monocytes/100 WBC (Bld) 9.0 % 0-10 [facility] Neutrophil percentageOrdered By: Jordan Estuardo on 07-23-2024 Neutrophils/100 WBC (Bld) 77.8 % High 47-70 [facility] Nucleated red blood cell per centageOrdered By: Jordan Estuardo on 07-23-2024 Nucleated RBC/100 WBC (Bld) [Ratio] 0 % 0-5 [facility] Partial Thromboplast Timeon 07-23-2024 aPTT Coag (Bld) [Time] 33.9 s Normal 24.1-36.2 [facility] Comment on above: Performed By: #### L 9200.0000 #### [facility] [address] [place] [address], [id number] Platelet countOrdered By: Cy ril Estuardo on 07-23-2024 Platelets (Bld) [#/Vol] 222 10*3/uL 150-450 [facility] Prothrombin Time w/INRon INR Coag (PPP) [Relative time] 2.4 {INR} Normal [facility] Comment on above: Performed By: #### L 100.0100, L300.3900, L500.2500, L300.4310 ####[facility] [address] [place], [address] PT Coag (PPP) [Time] 26.4 s High 11.7-14.9 [facility] Comment on above: Performed By: #### L 100.0100, L300.3900, L500.2500, L300.4310 ####[facility] [address] [place], [address] RBC Auto (Bld) [#/Vol]Ordere d By: Jordan Marte on 07-23-2024 RBC (Bld) [#/Vol] 5.45 10*6/uL High 4.2-5.4 [facility] White blood cell (WBC) count Ordered By: Jordan Marte on 07-23-2024 WBC (Bld) [#/Vol] 10.5 10*3/uL 4.4-11.0 [facility] CNNURSEon 07-10-2024 [facility] Nurse Visit (FAMPWS) -------- LINDA PERALTA ([id number]) 1945 F Date Time Provider Department 07/10/24 9:15 AM [place] NURSE FAMPWS During your visit today, we [...] [I25.10] 04/25/2009 DVT (deep venous thrombosis) ([facility]) [I82.409] 03/23/2012 01/23/2024 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 [...] Status:Closed by DESIRAE ARZOLA on 07/10/24 Normal [facility] 1,25-dihydroxyvitamin D3 [Ma ss/Vol]on 07-05-2024 VIT D1,25 DIHYDROXY 41.2 pg/mL Normal 19.9-79.3 [facility] Comment on above: Order Comment: Speci men Type: BLOOD SPECIMENOrdering Facility: [facility] Address: [address] [place] [address] Performed By: #### 1 989-3, 164-3 ####[facility] [id number] [place] [id number] [place] 25([place])D3 [facility] 25-hydroxyvitamin D3 [Mass/Vol] 37.5 ng/mL Normal 31.0-80.0 [facility] Comment on above: Order Comment: Speci men Type: BLOOD SPECIMENOrdering Facility: [facility] Address: [address] [place] [address] Performed By: #### 1 989-3, 1643 ####[facility] [id number] [place] [address] [place] Calcium.ionized [Moles/Vol]o n 07-05-2024 Calcium.ionized (Bld) [Mass/Vol] 1.34 mmol/L High 1.08-1.30 [facility] Comment on above: Order Comment: Speci men Type: BLOOD SPECIMENOrdering Facility: [facility] Address: [address] [place] [address] Performed By: #### 1 995-0 ####[facility] [id number] [address] [address] [place] Calcium.ionized adjusted to pH 7.4 (Bld) [Moles/Vol] 1.33 mmol/L High 1.08-1.30 [facility] Comment on above: Order Comment: Speci men Type: BLOOD SPECIMENOrdering Facility: [facility] Address: [address] [place] [address] Performed By: #### 1 995-0 ####[facility] [id number] [address] [address] [place] Comprehensive metabolic 2000 panelon 07-05-2024 Albumin [Mass/Vol] 4.0 g/dL Normal 3.9-4.9 [facility] Comment on above: Order Comment: Speci men Type: BLOOD SPECIMENOrdering Facility: [facility] Address: [address] [place] [address] Performed By: #### 2 731-8, 3016-3, 14976-9, 3024-7 ####[facility] [id number] [address] [address] [place] ALP [Catalytic activity/Vol] 91 U/L Normal 34-123 [facility] Comment on above: Order Comment: Speci men Type: BLOOD SPECIMENOrdering Facility: [facility] Address: [address] [place] [address] Performed By: #### 2 731-8, 3016-3, 69237-1, 3024-7 ####[facility] [id number] [address] [address] [place] ALT [Catalytic activity/Vol] 26 U/L Normal 7-38 [facility] Comment on above: Order Comment: Speci men Type: BLOOD SPECIMENOrdering Facility: [facility] Address: [address] [place] [address] Performed By: #### 2 731-8, 3016-3, 73292-7, 3024-7 ####[facility] [id number] [address] [address] [place] Anion gap [Moles/Vol] 15 mmol/L Normal 8-15 [facility] Comment on above: Order Comment: Speci men Type: BLOOD SPECIMENOrdering Facility: [facility] Address: [address] [place] [address] Performed By: #### 2 731-8, 3016-3, 89580-9, 3024-7 ####[facility] [id number] [address] [address] [place] AST [Catalytic activity/Vol] 24 U/L Normal 13-35 [facility] Comment on above: Order Comment: Speci men Type: BLOOD SPECIMENOrdering Facility: [facility] Address: [address] [place] [address] Performed By: #### 2 731-8, 3016-3, 67284-5, 3024-7 ####[facility] [id number] [address] [address] [place] Bilirubin [Mass/Vol] 0.6 mg/dL Normal 0.2-1.3 [facility] Comment on above: Order Comment: Speci men Type: BLOOD SPECIMENOrdering Facility: [facility] Address: [address] [place] [address] Performed By: #### 2 731-8, 3016-3, 02809-8, 3024-7 ####[facility] [id number] [address] [address] [place] Calcium [Mass/Vol] 10.2 mg/dL Normal 8.5-10.2 [facility] Comment on above: Order Comment: Speci men Type: BLOOD SPECIMENOrdering Facility: [facility] Address: [address] [place] [address] Performed By: #### 2 731-8, 3016-3, 43129-9, 3024-7 ####[facility] [id number] [address] [address] [place] Chloride [Moles/Vol] 104 mmol/L Normal 98-107 [facility] Comment on above: Order Comment: Speci men Type: BLOOD SPECIMENOrdering Facility: [facility] Address: [address] [place], [place] [address] Performed By: #### 2 731-8, 3016-3, 10396-2, 3024-7 ####[facility] [id number] [place] [address] [place] CO2 [Moles/Vol] 22 mmol/L Normal 22-30 [facility] Comment on above: Order Comment: Speci men Type: BLOOD SPECIMENOrdering Facility: [facility] Address: [address] [place] [address] Performed By: #### 2 731-8, 3016-3, 66160-6, 3024-7 ####[facility] [id number] [address] [address] [place] Creatinine [Mass/Vol] 1.34 mg/dL High 0.58-0.96 [facility] Comment on above: Order Comment: Speci men Type: BLOOD SPECIMENOrdering Facility: [facility] Address: [address] [place], [place] [address] Performed By: #### 2 731-8, 3016-3, 52927-9, 3024-7 ####[facility] [id number] [address] [address] [place] Creatinine and Glomerular filtration rate.predicted panel (S/P/Bld) 40 mL/min/1.73m??? Low >=60 [facility] Comment on above: Order Comment: Speci men Type: BLOOD SPECIMENOrdering Facility: [facility] Address: [address] [place] [address] Result Comment: Marisabel mated Glomerular Filtration Rate [...] GFR. Performed By: #### 2 731-8, 3016-3, 23548-4, 3023-7 ####[facility] [id number] [address] [address] [place] Glucose [Mass/Vol] 87 mg/dL Normal 74-99 [facility] Comment on above: Order Comment: Jody fairbanks Type: BLOOD SPECIMENOrdering Facility: [facility] Address: [address] [place] [address] Result Comment: The [place] Diabetes Association (ADA) provides guidance for cutoff [...] Standards of Medical Care in Diabetes 2016, [place] [employer]. Diabetes Care. 2016.39(Suppl 1). Performed By: #### 2 731-8, 3016-3, 67249-9, 7 ####[facility] [id number] [address] [address] [place] Potassium [Moles/Vol] 5.1 mmol/L Normal 3.7-5.1 [facility] Comment on above: Order Comment: Jody fairbanks Type: BLOOD SPECIMENOrdering Facility: [facility] Address: [address] [place] [address] Performed By: #### 2 731-8, 3016-3, 85487-3, 3023-7 ####[facility] [id number] [address] [address] [place] Protein [Mass/Vol] 6.0 g/dL Low 6.3-8.0 [facility] Comment on above: Order Comment: Speci men Type: BLOOD SPECIMENOrdering Facility: [facility] Address: [address] [place] [address] Performed By: #### 2 731-8, 3016-3, 92078-3, 3024-7 ####[facility] [id number] [address] [address] [place] Sodium [Moles/Vol] 141 mmol/L Normal 136-144 [facility] Comment on above: Order Comment: Speci men Type: BLOOD SPECIMENOrdering Facility: [facility] Address: [address] [place] [address] Performed By: #### 2 731-8, 3016-3, 18705-7, 3024-7 ####[facility] [id number] [address] [address] [place] Urea nitrogen [Mass/Vol] 42 mg/dL High 7-21 [facility] Comment on above: Order Comment: Speci men Type: BLOOD SPECIMENOrdering Facility: [facility] Address: [address] [place] [address] Performed By: #### 2 731-8, 3016-3, 97222-2, 3024-7 ####[facility] [id number] [address] [address] [place] GALAC PHOS URIDYL Omar 07-05 GALAC PHOS URIDYL TR 26.2 U/g Hb Normal >=19.4 [facility] Comment on above: Order Comment: Speci men Type: BLOOD SPECIMENOrdering Facility: [facility] Address: [address] [place] [address] Result Comment: Norm al zgrrmjkgu-0-juhkvbuqi uridyltransferase activity. Results reviewed and interpreted by Fatmata Craven MD, PhD, FACMG INTERPRETIVE INFORMATION: Spdtc-7-Cumx Uridyltransferase One U/g Hb is equivalent to one umol/hour/gram of hemoglobin (umol/hr/g Hb). Genotype Fswjd-7-Iqyc Uridyltransferase activity(umol/hr/g Hb) Classic galactosemia(G/G) ..... Less than or equal to 0.7 Alva galactosemia(D/G) ............. 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 6.5-16.2 Alva homozygous(D/D) ............... 6.4-16.5 Alva carrier(D/N) .................. 12.0-24.0 Normal(N/N) .................. Greater than or equal to 19.4 This test was developed and its performance characteristics determined by [facility]. It has not been cleared or approved by the [place] Food and Drug Administration. This test was performed in a CLIA certified laboratory and is intended for clinical purposes. Counseling and informed consent are recommended for genetic testing. Consent forms are available online. Performed By: [facility] [address] [place] [address] Concierge Manager: Jefferson Kerr MD, PhD CLIA Number: [id number] Performed By: #### G 1PHOS ####[facility] [id number] [place] [address] PTH-Intact [facility] 05- Parathyrin.intact [Mass/Vol] 52 pg/mL Normal 15-65 [facility] Comment on above: Order Comment: Speci men Type: BLOOD SPECIMENOrdering Facility: [facility] Address: [address] [place] [address] Performed By: #### 2 731-8, 3016-3, 39018-2, 3024-7 ####[facility] [id number] [place] [address] [place] T4 Free SerPl-mCncon 025 Free T4 [Mass/Vol] 1.4 ng/dL Normal 0.9-1.7 [facility] Comment on above: Order Comment: Speci men Type: BLOOD SPECIMENOrdering Facility: [facility] Address: [address] [place] [address] Performed By: #### 2 731-8, 3016-3, 72057-9, 3024-7 ####[facility] [id number] [place] [id number] [place] TSH SerPl-aCncon 07-05-2024 TSH Qn 0.460 m[IU]/L Normal 0.270-4.200 [facility] Comment on above: Order Comment: Speci men Type: BLOOD SPECIMENOrdering Facility: [facility] Address: [address] [place] [address] Performed By: #### 2 731-8, 3016-3, 28776-4, 3024-7 ####[facility] [id number] [place] [id number] [place] Echo Transesophageal (TOMI)on 07-03-2024 Echo Transesophageal (TOMI) [facility] [address] [place] [address] Echo Transesophageal (TOMI) 07/03/24 1154 MR#: [id number] Acct: [id number] Name: LINDA PERALTA Rep #: [id number] : 1945 79 From: Jordan Marte MD Attending Dr: NIGHAT Burns Status: REG CL I Ordering Dr: Tucker Reyes Date: 07/03/24 Location: [facility] Sex: F C Admitted: Reason For Study : AORTIC STENOSIS Medication TOMI probe 6VT-D (SN [id number]) passed with minimal difficulty. No complications were noted. Cetacaine Topical [place] given X3 orally. Left Ventricle Normal LV [...] Dictated: 07/03/24 1154 Date Transcribed: 07/03/24 1505 Baster Hand: Signed Normal [facility] Transesophageal echocardiogr am reportOrdered By: Jordan Marte on 07-03-2024 Study report [facility] [address] [place] [address] Echo Transesophageal (TOMI) 07/03/24 1154 MR#: [id number] Acct: [id number] Name: LINDA EPRALTA Rep #:[id number] : 1945 79 From: Jordan Gaitan Attending Dr: NIGHAT Burns atus: REG CLI Ordering Dr: Tucker Reyes Date: 07/03/24 Location: [facility] Sex: F C Admitted: Reason For Study : AORTIC STENOSIS Medication TOMI probe 6VT-D (SN [id number]) passed with minimal difficulty. No complications were noted. Cetacaine Topical [place] given X3 orally. Left Ventricle Normal LV [...] Dictated: 07/03/24 1154 Date Transcribed: 07/03/24 1505 Baster Hand: Signed [facility] Work Phone: International normalized rat io (INR) measurement by fingerstickOrdered By: Basim Velasquez on 06-21-2024 INR Coag (BldC) [Relative time] 2.0 [facility] Comment on above: Critical Value > 4.0 Protime w/INR Fingerstickon 06-21-2024 INR Coag (PPP) [Relative time] 2.0 {INR} Normal [facility] Comment on above: Result Comment: Crit ical Value > 4.0 Performed By: #### L 9200.0000 #### [facility] [address] [place], [address] Protime [place] 22.3 SEC High 11.7-14.9 [facility] Comment on above: Performed By: #### L 9200.0000 #### [facility] [address] [place], [address] Whole blood prothrombin time Ordered By: Basim Velasquez on 06-21-2024 PT Coag (Bld) [Time] 22.3 s High 11.7-14.9 [facility] Echo Completeon 05-24-2024 Echo Complete [facility] [address] [place] [address] Echo Complete 05/24/24 1348 MR#: [id number] Acct: [id number] Name: LINDA PERALTA Rep #: [id number] : 1945 79 From: Jordan Marte MD Attending Dr: NIGHAT Burns Status: REG CL I Ordering Dr: Tucker Reyes Date: 05/24/24 Location: [facility] Sex: F C Admitted: Reason For [...] Date _ (more content not included)... Normal [facility] Echocardiogram study reportO rdered By: Jordan Marte on 05-24-2024 Study report [facility] [address] [place] [address] Echo Complete 05/24/24 1348 MR#: [id number] Acct: [id number] Name: LINDA PERALTA Rep #:[id number] : 1945 79 From: Jordan Gaitan Attending Dr: NIGHAT Burns atus: REG CLI Ordering Dr: Tucker Reyes Date: 05/24/24 Location: [facility] Sex: F C Admitted: Reason For [...] Dictated: 05/24/24 1348 Date Transcribed: 05/24/24 1604 Baster Hand: Signed [facility] Work Phone: INR Coag (BldC) [Relative ti me]Ordered By: Basim Velasquez on 05-24-2024 INR Coag (Bld) [Relative time] 2.7 {INR} [facility] Comment on above: Critical Value > 4.0 International normalized rat io (INR) measurement by fingerstickOrdered By: Basim Velasquez on 05-24-2024 INR Coag (BldC) [Relative time] 2.7 [facility] Comment on above: Critical Value > 4.0 PT Coag (Bld) [Time]Ordered By: Basim Velasquez on 05-24-2024 Bedside Prothrombin Time 28.1 SEC High 11.7-14.9 [facility] Protime w/INR Fingerstickon 05-24-2024 INR Coag (PPP) [Relative time] 2.7 {INR} Normal [facility] Comment on above: Result Comment: Crit ical Value > 4.0 Performed By: #### L 500.2500, L100.0100 #### [facility] [address] [place], [place], [id number] Protime Coagsen 28.1 SEC High 11.7-14.9 [facility] Comment on above: Performed By: #### L 500.2500, L100.0100 #### [facility] [address] [place], [place], [id number] Whole blood prothrombin time Ordered By: Basim Velasquez on 05-24-2024 PT Coag (Bld) [Time] 28.1 s High 11.7-14.9 [facility] Protime w/INR Fingerstickon 04-30-2024 INR Coag (PPP) [Relative time] 2.5 {INR} Normal [facility] Comment on above: Result Comment: Crit ical Value > 4.0 Performed By: #### L 500.2500, L100.0100 #### [facility] [address] [place], [address] Protime Coagsen 26.5 SEC High 11.7-14.9 [facility] Comment on above: Performed By: #### L 500.2500, L100.0100 #### [facility] [address] [place], [address] Cardiology Visit Reporton Cardiology Visit Report [facility] [address] [place], [place] [address] OFFICE VISIT Date of Service: 04/29/24 MR#: [id number] Acct: [id number] Name: LINDA PERALTA Rep #: [id number] : 1945 Provider: NIGHAT Burns Age/Sex: 79/F Location: [facility] Status: Signed HPI HPI History of Present [...] with mod-severe aortic stenosis. 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 [facility] Medical History MVP (mitral valve prolapse) Aortic stenosis Hypokalemia Elevated serum creatinine Acute prerenal azotemia History of kidney cancer Chronic kidney disease Hypercalcemia Frequent falls Closed head injury (03/20/20) Hypoglycemia (03/20/20) Acute electrocardiogram changes Atopic dermatitis Osteopenia determined by x-ray History of pulmonary embolism jail (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 Orthostatic hypotension Chronic [...] Other History of DVT (deep vein thrombosis) jail (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 Social History ... Normal [facility] INR Coag (BldC) [Relative ti me]Ordered By: Basim Velasquez on 04-26-2024 INR Coag (Bld) [Relative time] 2.5 {INR} [facility] Comment on above: Critical Value > 4.0 International normalized rat io (INR) measurement by fingerstickOrdered By: Basim Velasquez on 04-26-2024 INR Coag (BldC) [Relative time] 2.5 [facility] Comment on above: Critical Value > 4.0 PT Coag (Bld) [Time]Ordered By: Basim Velasquez on 04-26-2024 Bedside Prothrombin Time 26.5 SEC High 11.7-14.9 [facility] Whole blood prothrombin time Ordered By: Basim Velasquez on 04-26-2024 PT Coag (Bld) [Time] 26.5 s High 11.7-14.9 [facility] Blood urea nitrogen (BUN)/cr eatinine ratioOrdered By: Jennifer Tarango on 04-03-2024 Urea nitrogen/Creatinine [Mass ratio] 21.8 mg/mg High 10-20 [facility] Carbon dioxide measurementOr dered By: Jennifer Tarango on 04-03-2024 CO2 [Moles/Vol] 26.0 mmol/L 21.0-32.0 [facility] Chloride measurementOrdered By: Jennifer Tarango on 04-03-2024 Chloride [Moles/Vol] 107 mmol/L 98-107 [facility] Estimated glomerular filtrat ion rate (GFR) AmericanOrdered By: Jennifer Tarango on 04-03-2024 Estimated GFR (MDRD) Amer 46 mL/min Low >60 [facility] Comment on above: GFR Calc Glomerular filtration rate ( GFR) estimationOrdered By: Jennifer Tarango on 04-03-2024 Estimated GFR (MDRD) Non-Af Amer 38 mL/min Low >60 [facility] Comment on above: Non- GFR Calc GFR/1.73 sq M.predicted among non-blacks MDRD (S/P/Bld) [Vol rate/Area] 38 mL/min/{1.73_m2} Low >60 [facility] Comment on above: Non- GFR Calc Glucose measurementOrdered B y: Jennifer Taarngo on 04-03-2024 Glucose [Mass/Vol] 152 mg/dL High 74-106 [facility] Comment on above: Fasting Glucose resu lt greater than or equal to 126 mg/dL suggests DIABETES MELLITUS per A.D.A. criteria. Phosphorus measurementOrdere d By: Jennifer Tarango on 04-03-2024 Phosphorus Level 2.3 mg/dL Low 2.5-4.9 [facility] Potassium measurementOrdered By: Jennifer Tarango on 04-03-2024 Potassium [Moles/Vol] 4.2 mmol/L 3.5-5.1 [facility] Renal Profileon 04-03-2024 Albumin [Mass/Vol] 3.4 g/dL Normal 3.2-5.0 [facility] Comment on above: Performed By: #### L 9200.0000 #### [facility] [address] [place], [address] BUN/CRE 21.8 RATIO High 10-20 [facility] Comment on above: Performed By: #### L 9200.0000 #### [facility] [address] [place], [address] CA,Total 9.3 mg/dL Normal 8.5-10.1 [facility] Comment on above: Performed By: #### L 9200.0000 #### [facility] [address] [place], [address] Chloride [Moles/Vol] 107 mmol/L Normal 98-107 [facility] Comment on above: Performed By: #### L 9200.0000 #### [facility] [address] [place], [address] CO2 [Moles/Vol] 26.0 mmol/L Normal 21.0-32.0 [facility] Comment on above: Performed By: #### L 9200.0000 #### [facility] [address] [place], [address] Creatinine [Mass/Vol] 1.42 mg/dL High 0.55-1.02 [facility] Comment on above: Result Comment: The validity of the calculated GFR GFRAA in patients over 70 years has not been determined. Clinical correlation is essential. Performed By: #### L 9200.0000 #### [facility] [address] [place], [address] EST GFR - AA 46 mL/min Low >60 [facility] Comment on above: Result Comment: Afri can Haitian GFR Calc Performed By: #### L 9200.0000 #### [facility] [address] [place], [address] GFR/1.73 sq M.predicted among non-blacks MDRD (S/P/Bld) [Vol rate/Area] 38 mL/min/{1.73_m2} Low >60 [facility] Comment on above: Result Comment: Non- GFR Calc Performed By: #### L 9200.0000 #### [facility] [address] [place], [address] Glucose [Mass/Vol] 152 mg/dL High 74-106 [facility] Comment on above: Result Comment: Fast ing Glucose result greater than or equal to 126 mg/dL suggests DIABETES MELLITUS per A.D.A. criteria. Performed By: #### L 9200.0000 #### [facility] [address] [place], [address] Phosphate [Mass/Vol] 2.3 mg/dL Low 2.5-4.9 [facility] Comment on above: Performed By: #### L 9200.0000 #### [facility] [address] [place], [address] Potassium [Moles/Vol] 4.2 mmol/L Normal 3.5-5.1 [facility] Comment on above: Performed By: #### L 9200.0000 #### [facility] [address] [place], [address] Sodium [Moles/Vol] 140 mmol/L Normal 136-145 [facility] Comment on above: Performed By: #### L 9200.0000 #### [facility] [address] [place], [address] Urea nitrogen [Mass/Vol] 31 mg/dL High 7-18 [facility] Comment on above: Performed By: #### L 9200.0000 #### [facility] [address] [place], [address] Serum or plasma albumin scott urement (mass/volume)Ordered By: Jennifer Tarango on 04-03-2024 Albumin [Mass/Vol] 3.4 g/dL 3.2-5.0 [facility] Serum or plasma calcium scott urement (mass/volume)Ordered By: Jennifer Tarango on 04-03-2024 Calcium [Mass/Vol] 9.3 mg/dL 8.5-10.1 [facility] Serum or plasma creatinine m easurement (mass/volume)Ordered By: Jennifer Tarango on 04-03-2024 Creatinine [Mass/Vol] 1.42 mg/dL High 0.55-1.02 [facility] Comment on above: The validity of the calculated GFR & GFRAA in patients over 70 years has not been determined. Clinical correlation is essential. Serum or plasma urea nitroge n measurement (mass/volume)Ordered By: Jennifer Tarango on 04-03-2024 Urea nitrogen [Mass/Vol] 31 mg/dL High 7-18 [facility] Sodium levelOrdered By: Dustin Tarango on 04-03-2024 Sodium [Moles/Vol] 140 mmol/L 136-145 [facility] INR Coag (BldC) [Relative ti me]Ordered By: Basim Velasquez on 03-21-2024 INR Coag (Bld) [Relative time] 2.3 {INR} [facility] Comment on above: Critical Value > 4.0 International normalized rat io (INR) measurement by fingerstickOrdered By: Basim Velasquez on 03-21-2024 INR Coag (BldC) [Relative time] 2.3 [facility] Comment on above: Critical Value > 4.0 PT Coag (Bld) [Time]Ordered By: Basim Velasquez on 03-21-2024 Bedside Prothrombin Time 24.0 SEC High 11.7-14.9 [facility] Protime w/INR Fingerstickon 03-21-2024 INR Coag (PPP) [Relative time] 2.3 {INR} Normal [facility] Comment on above: Result Comment: Crit ical Value > 4.0 Performed By: #### L 500.2500, L100.0100 #### [facility] [address] [place], [place], [id number] Protime Coagsen 24.0 SEC High 11.7-14.9 [facility] Comment on above: Performed By: #### L 500.2500, L100.0100 #### [facility] [address] [place], [address] Whole blood prothrombin time Ordered By: Basim Velasquez on 03-21-2024 PT Coag (Bld) [Time] 24.0 s High 11.7-14.9 [facility] Prothrombin Time w/INRon INR Normal [facility] Comment on above: Result Comment: FING ERSTICK Performed By: #### L 9200.0000 #### [facility] [address] [place], [address] PROTIME Normal 11.7-14.9 [facility] Comment on above: Result Comment: FING ERSTICK Performed By: #### L 9200.0000 #### [facility] [address] [place], [address] Protime w/INR Fingerstickon 02-28-2024 INR Coag (PPP) [Relative time] 3.1 {INR} Normal [facility] Comment on above: Result Comment: Crit ical Value > 4.0 Performed By: #### L 9200.0000 #### [facility] [address] [place], [address] Protime Coagsen 32.1 SEC High 11.7-14.9 [facility] Comment on above: Performed By: #### L 9200.0000 #### [facility] [address] [place], [address] Renal Profileon 02-28-2024 ALB Normal 3.2-5.0 [facility] Comment on above: Order Comment: RENAL IS FOR Result Comment: UNRULY ERSTICK Performed By: #### L 9200.0000 #### [facility] [address] [place], [address] BUN Normal 7-18 [facility] Comment on above: Order Comment: RENAL IS FOR Result Comment: FING ERSTICK Performed By: #### L 9200.0000 #### [facility] [address] [place], [address] BUN/CRE Normal 10-20 [facility] Comment on above: Order Comment: RENAL IS FOR Result Comment: FING ERSTICK Performed By: #### L 9200.0000 #### [facility] [address] [place], [address] CA,Total Normal 8.5-10.1 [facility] Comment on above: Order Comment: RENAL IS FOR Result Comment: FING ERSTICK Performed By: #### L 9200.0000 #### [facility] [address] [place], [address] CL Normal 98-107 [facility] Comment on above: Order Comment: RENAL IS FOR Result Comment: FING ERSTICK Performed By: #### L 9200.0000 #### [facility] [address] [place], [address] CO2 Normal 21.0-32.0 [facility] Comment on above: Order Comment: RENAL IS FOR Result Comment: FING ERSTICK Performed By: #### L 9200.0000 #### [facility] [address] [place], [address] CREAT,SERUM Normal 0.55-1.02 [facility] Comment on above: Order Comment: RENAL IS FOR Result Comment: FING ERSTICK Performed By: #### L 9200.0000 #### [facility] [address] [place], [address] EST GFR Normal >60 [facility] Comment on above: Order Comment: RENAL IS FOR Result Comment: FING ERSTICK Performed By: #### L 9200.0000 #### [facility] [address] [place], [address] EST GFR - AA Normal >60 [facility] Comment on above: Order Comment: RENAL IS FOR Result Comment: FING ERSTICK Performed By: #### L 9200.0000 #### [facility] [address] [place], [address] GLU Normal 74-106 [facility] Comment on above: Order Comment: RENAL IS FOR Result Comment: FING ERSTICK Performed By: #### L 9200.0000 #### [facility] [address] [place], [address] PHOS Normal 2.5-4.9 [facility] Comment on above: Order Comment: RENAL IS FOR Result Comment: FING ERSTICK Performed By: #### L 9200.0000 #### [facility] [address] [place], [address] Potassium Normal 3.5-5.1 [facility] Comment on above: Order Comment: RENAL IS FOR Result Comment: FING ERSTICK Performed By: #### L 9200.0000 #### [facility] [address] [place], [address] Renal Profile Normal 136-145 [facility] Comment on above: Order Comment: RENAL IS FOR Result Comment: FING ERSTICK Performed By: #### L 9200.0000 #### [facility] [address] [place], [address] CNPNon 02-22-2024 [facility] Telephone (INTMWS) -------- LINDA PERALTA ([id number]) 1945 F Date Time Provider Department 02/22/24 [...] her right thyroid. She should have her political aide follow up on this at her next routine appointment. Carlos Roe RN 02/22/2024 9:16 AM Signed Pt called and is notified of results and given providers message. Pt voices understanding. States her Computer Field Technician is Dr. Alexander Gregory in [facility]. 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 Will fax this msg and CT [...] [I25.10] 04/25/2009 DVT (deep venous thrombosis) ([facility]) [I82.409] 03/23/2012 01/23/2024 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 [...] Status:Closed by CARLOS ROE on 02/22/24 Normal [facility] Basic metabolic 2000 panelon 02-01-2024 Anion gap [Moles/Vol] 12 mmol/L Normal - [facility] Comment on above: Order Comment: Speci men Type: BLOOD SPECIMENOrdering Facility: [facility] Address: [address] [place], [place] [address] [address] Performed By: #### 2 4321-2 ####[facility] MILLTOWNCLIA [id number] [place] [address] [place] Calcium [Mass/Vol] 9.9 mg/dL Normal 8.5-10.2 [facility] Comment on above: Order Comment: Speci men Type: BLOOD SPECIMENOrdering Facility: [facility] Address: [address] [place] [address] Performed By: #### 2 4321-2 ####[facility] MILLWNCLIA [id number] [place] [address] [place] Chloride [Moles/Vol] 108 mmol/L High 98-107 [facility] Comment on above: Order Comment: Speci men Type: BLOOD SPECIMENOrdering Facility: [facility] Address: [address] [place] [address] Performed By: #### 2 4321-2 ####[facility] HOSPITALLIA [id number] [place] [address] [place] CO2 [Moles/Vol] 23 mmol/L Normal 22-30 [facility] Comment on above: Order Comment: Speci men Type: BLOOD SPECIMENOrdering Facility: [facility] Address: [address] [place] [address] Performed By: #### 2 4321-2 ####[facility] [id number] [place] [address] [place] Creatinine [Mass/Vol] 1.36 mg/dL High 0.58-0.96 [facility] Comment on above: Order Comment: Speci men Type: BLOOD SPECIMENOrdering Facility: [facility] Address: [address] [place] [address] Performed By: #### 2 4321-2 ####[facility] [id number] [place] [address] [place] Creatinine and Glomerular filtration rate.predicted panel (S/P/Bld) 39 mL/min/1.73m??? Low >=60 [facility] Comment on above: Order Comment: Jody fairbanks Type: BLOOD SPECIMENOrdering Facility: [facility] Address: [address] [place] [address] Result Comment: Marisabel mated Glomerular Filtration Rate [...] actual GFR. Performed By: #### 2 4321-2 ####[facility] [id number] [place] [address] [place] Glucose [Mass/Vol] 93 mg/dL Normal 74-99 [facility] Comment on above: Order Comment: Jody fairbanks Type: BLOOD SPECIMENOrdering Facility: [facility] Address: [address] [place] [address] Result Comment: The [place] Diabetes Association (ADA) provides guidance for cutoff [...] Standards of Medical Care in Diabetes 2016, [place] Diabetes Association. Diabetes Care. 2016.39(Suppl 1). Performed By: #### 2 4321-2 ####[facility] [id number] [place] [address] [place] Potassium [Moles/Vol] 3.9 mmol/L Normal 3.7-5.1 [facility] Comment on above: Order Comment: Speci men Type: BLOOD SPECIMENOrdering Facility: [facility] Address: [address] [place], [place] [address] Performed By: #### 2 4321-2 ####[facility] NERINCCLAUDIO [id number] [place] [address] [place] Sodium [Moles/Vol] 143 mmol/L Normal 136-144 [facility] Comment on above: Order Comment: Speci men Type: BLOOD SPECIMENOrdering Facility: [facility] Address: [address] [place] [address] Performed By: #### 2 4321-2 ####[facility] NERINCCLAUDIO [id number] [address] [place] Urea nitrogen [Mass/Vol] 39 mg/dL High 7-21 [facility] Comment on above: Order Comment: Speci men Type: BLOOD SPECIMENOrdering Facility: [facility] Address: [address] [place] [address] Performed By: #### 2 4321-2 ####[facility] JACKSONWNCLIA [id number] [address] [place] CT CHEST WO IVCONon 02-01-20 CT CHEST WO IVCON * * *Final Report* * * DATE OF EXAM: Feb 01 2024 11:20AM [facility] 0541 - CT CHEST WO IVCON / [...] be communicated with the ordering provider via [employer] staff message or phone message by [employer] within 2 business days of report finalization. --END OF FINDING-- Baster Hand: PSCB Transcribe Date/Time: Feb 06 2024 12:06P Dictated by : DESIRAE MOSELEY MD This examination was interpreted and the report reviewed and electronically signed by: DESIRAE MOSELEY MD on Feb 06 2024 12:23PM EST [id number] [id number] Invalid Interpretation Code [facility] Lipid 1996 panelon 4 Cholesterol [Mass/Vol] 169 mg/dL Normal <200 Cl [facility] Comment on above: Order Comment: Speci men Type: BLOOD SPECIMENOrdering Facility: [facility] Address: [address] [place] [address] Result Comment: <200 mg/dL, Desirable 200-239 mg/dL, Borderline high >239 mg/dL, High Performed By: #### 2 4331-1 ####[facility] [id number] [id number] [place] [address] [id number] [place] [address] [place] Cholesterol in HDL [Mass/Vol] 78 mg/dL Normal >39 [facility] Comment on above: Order Comment: Speci men Type: BLOOD SPECIMENOrdering Facility: [facility] Address: [address] [place] [address] Result Comment: 40-5 9 mg/dL, Acceptable >59 mg/dL, High: Negative risk factor for coronary heart disease <40 mg/dL, Low: Positive risk factor for coronary heart disease Performed By: #### 2 4331-1 ####[facility] LAB[facility] [id number] [address] [id number] [place] [address] [place] Cholesterol in LDL [Mass/Vol] 79 mg/dL Normal <100 [facility] Comment on above: Order Comment: Speci men Type: BLOOD SPECIMENOrdering Facility: [facility] Address: [address] [place] [address] Result Comment: <100 mg/dL, Optimal 100-129 mg/dL, Near optimal/above optimal 130-159 mg/dL, Borderline high 160-189 mg/dL, High >189 mg/dL, Very high Secondary prevention optimal LDL Cholesterol levels are recommended to be < 70 mg/dL Performed By: #### 2 4331-1 ####[facility] [id number] [place] [id number] [facility] [id number] [place] [address] [place] Cholesterol in LDL/Cholesterol in HDL [Mass ratio] 1.01 {ratio} Normal <2.54 [facility] Comment on above: Order Comment: Jody men Type: BLOOD SPECIMENOrdering Facility: [facility] Address: [address] [place] [address] Result Comment: Bernardo villagomez: 1. National Cholesterol Education Program ATP III Guideline At-A-Glance Quick Desk Reference: National Heart, Lung, and Blood D Hanis. National Institutes of Health. 2001: NIH Publication No. 01-3305. 2. An International Atherosclerosis Society position paper: global recommendations for the management of dyslipidemia: executive summary, Atherosclerosis. 2014: 232(2):410-413. Performed By: #### 2 4331-1 ####[facility] [id number] [address] [id number] [place] [address] [place] Cholesterol in VLDL [Mass/Vol] 12 mg/dL Normal <30 [facility] Comment on above: Order Comment: Jody men Type: BLOOD SPECIMENOrdering Facility: [facility] Address: [address] [place] [address] Performed By: #### 2 4331-1 ####[facility] LAB[facility] [id number] [address] [id number] [place] [address] [place] Cholesterol non HDL [Mass/Vol] 91 mg/dL Normal <130 [facility] Comment on above: Order Comment: Jody men Type: BLOOD SPECIMENOrdering Facility: [facility] Address: [address] [place] [address] Result Comment: <130 mg/dL, Optimal 130-159 mg/dL, Near optimal/above optimal 160-189 mg/dL, Borderline high 190-219 mg/dL, High >219 mg/dL, Very high Secondary prevention optimal non HDL Cholesterol levels are recommended to be <100 mg/dL Performed By: #### 2 4331-1 ####[facility] [id number] [address] [id number] [place] [address] [place] Cholesterol.total/Chol esterol in HDL [Mass ratio] 2.17 {ratio} Normal <5.10 [facility] Comment on above: Order Comment: Speci men Type: BLOOD SPECIMENOrdering Facility: [facility] Address: [address] [place] [address] Performed By: #### 2 4331-1 ####[facility] [id number] [id number] [place] [address] [place] FASTING TIME 12 hrs Normal [facility] Comment on above: Order Comment: Speci men Type: BLOOD SPECIMENOrdering Facility: [facility] Address: [address] [place], [place] [address] Performed By: #### 2 4331-1 ####[facility] [id number] [id number] [place] [address] [place] Triglyceride [Mass/Vol] 60 mg/dL Normal <150 [facility] Comment on above: Order Comment: Speci men Type: BLOOD SPECIMENOrdering Facility: [facility] Address: [address] [place], [place] [address] Result Comment: <150 mg/dL, Normal 150-199 mg/dL, Borderline high 200-499 mg/dL, High >499 mg/dL, Very high Performed By: #### 2 4331-1 ####[facility] [id number] [place] [id number] [facility] [id number] [place] [id number] [place] [facility] CNOVon 01-23-2024 CNOV Office Visit (INTMWS ) -------- LINDA PERALTA ([id number]) 1945 F Date Time Provider Department 01/23/24 [...] - General Outside specialists seen: Cardiology-Dr. Ortega [facility] Nephrology- Dr. Jennifer Tarango Commercial Loan Reviewer- Dr. Isreal Carpio Endocrinology- Dr. Alexander Gregory. [...] PM Signed This note was created using [employer]. Subjective Linda Peralta is a 78 year [...] Use Vapin (more content not included)... Normal [facility] CNPNon 01-19-2024 CNPN Telephone (INTMWS) -------- LINDA PERALTA ([id number]) 1945 F Date Time Provider Department 01/19/24 [...] you in caring for your patient. ? [facility] is committed to? providing safe care [...] [I25.10] 04/25/2009 DVT (deep venous thrombosis) ([facility]) [I82.409] 03/23/2012 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 [M85.80] 11/13/2013 06/30/2023 Chronic nonallergic rhinitis [J31.0] 03/20/2014 Pure hypercholesterolemia [E78.00] 02/17/2015 Gallstones [K80.20] 03/06/2016 08/24/2016 Pain of upper abdomen [R10.10] 03/10/2016 02/27/2017 Personal history of colonic polyps [Z86.0100] 03/10/2016 02/27/2017 Atopic neuroderm (more content not included)... Normal [facility] CNNURSEon 01-11-2024 [facility] ([facility]AMP[facility] -------- LINDA PERALTA ([id number]) 1945 F Date Time Provider Department 01/11/24 2:00 PM [place] [facility] During your visit today, we recorded [...] [I25.10] 04/25/2009 DVT (deep venous thrombosis) ([facility]) [I82.409] 03/23/2012 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 [M85.80] [...] Status:Closed by DESIRAE ARZOLA on 01/11/24 Normal [facility] Protime w/INR Fingerstickon 01-04-2024 INR Coag (PPP) [Relative time] 2.8 {INR} Normal [facility] Comment on above: Result Comment: Crit ical Value > 4.0 Performed By: #### L 9200.0000 #### [facility] [place], [place], [id number] Protime Coagsen 29.2 SEC High 11.7-14.9 [facility] Comment on above: Performed By: #### L 9200.0000 #### [facility] [address], [address] XR CHEST 2V FRONTAL/LATon XR CHEST 2V [...] be communicated with the ordering provider via SEDLine staff message by Imaging Support Services within 2 business days of report finalization. Baster Hand: PSCGianluca Transcribe Date/Time: Jan 01 2024 1:57P Dictated by : ELIZABETH GEORGE MD This examination was interpreted and the report reviewed and electronically signed by: ELIZABETH GEORGE MD on Jan 01 2024 1:58PM EST [id number] ACTIONABLE Invalid Interpretation Code [facility] XR Chest PA and LateralOrder ed By: Ccf Provider on 01-01-2024 Interpretation and review of laboratory results Abnormal [facility] Radiology Result ACTIONABLE Abnormal [facility] Comment on above: This report contains an [...] contact your provider for the next steps. [facility] XR Chest PA and Lateralon IMPRESSION: Redemonstration of 2.1 cm nodular density in the right lower lobe. Incidental Finding: Follow-up Acuity: Incidental Finding: Suspicious appearing incidentally detected nodular lung density on CXR Routing Code: RI_1 Recommendation: CT Chest WO IVCON Time Frame: in 4 weeks COMMUNICATION:? Results will be communicated with the ordering provider via SEDLine staff message by Imaging Support Services within 2 business days of report finalization. Baster Hand: STEPAN Transcribe Date/Time: Jan 01 2024 1:57P Dictated by : ELIZABETH GEORGE MD This examination was interpreted and the report reviewed and electronically signed by: ELIZABETH GEORGE MD on Jan 01 2024 1:58PM [facility] DIVISION OF RADIOLOGY * * [...] be communicated with the ordering provider via SEDLine staff message by [facility] Support Services within 2 business days of report finalization. Baster Hand: STEPAN Transcribe Date/Time: Jan 01 2024 1:57P Dictated by : ELIZABETH GEORGE MD This examination was interpreted and the report reviewed and electronically signed by: ELIZABETH GEORGE MD on Jan 01 2024 1:58PM [facility] Radiology Study observation (narrative) [facility] Jayce 12-26-2023 [facility] Telephone (INTMWS) -------- LINDA PERALTA ([id number]) 1945 F Date Time Provider Department 12/26/23 AMOS FLOYD INTMWS During your visit today, we recorded the following information about you: Kelley Rivera LPN 12/26/2023 4:23 PM Addendum Bone density completed at [facility]. View External Imaging - Bone Density [ID [id number]] Previously completed PA for prolia to be [...] 12/28/2023 11:56 AM Addendum Called Pattie at [phone]. This PA is completed with pharmacy to aileen them at [phone]. This reference number is [id number]. Called pharmacy and they report there is a PA already on file for Dr. Rey Vann covered until 05/11/24. Did start a new PA for pcp. This was reviewed over the phone and PA approved from 12/28/23 to 12/27/24. This auth number is [id number]. They will also fax approval notice too. [...] colitis [K52.831] more content not included)... Normal [facility] Dexa Bone Density Studyon Dexa Bone Density Study [facility] Imaging Services [address] [place] [address] Dexa Bone Density Study MR#: [id number] Acct: [id number] Name: LINDA PERALTA Rep #: [id number] : 1945 F 78 From: Geovanni vargas MD PCP: Dr. Amos Floyd MD Status: [facility] Study: Dexa Bone Density Study Date of Exam: 12/21/23 Exam# [id number] Ordering Dr: Amos Floyd MD [id number] STUDY: DUAL ENERGY X-RAY ABSORPTIOMETRY / DXA [...] EST , CC: Dr. Amos Floyd MD Baster Hand: Signed [facility] 12-20-2023 [facility] Telephone (Tripshare) -------- LINDA PERALTA ([id number]) 1945 F Date Time Provider Department 12/20/23 [...] elevated myocardial infarction) *06/09/2023 Adrenal insufficiency ([facility]) [E27.40] 06/12/2023 Nonrheumatic aortic valve stenosis [I35.0] 06/30/2023 Nodule of lower lobe of right lung needing foll*06/08/2023 Encounter Status:Closed by NATHALY REN on 12/20/23 [facility] Jayce 12-05-2023 [facility] Telephone (INTMWS) -------- LINDA PERALTA ([id number]) 1945 F Date Time Provider Department 12/05/23 AMOS FLOYD INTMWS During your visit today, we recorded the following information about you: EriKelley nealRAYMUNDO 12/05/2023 4:20 PM Signed PA needed for prolia. EriKelley nealRAYMUNDO 12/06/2023 12:27 PM Signed In review the prolia is already approved with her insurance from 02/20/23 to 02/20/2024 through [facility]. Will call her insurance to see if [...] went to pharmacy benefits. LINDA PERALTA (Kelly: [id number]) - [id number] Prolia 60MG/ML syringes status: PA Request Created: December 06, 2023 Sent: December 06, 2023 Will see what their response is,may have to call for medical benefits PA coverage to review. Kelley Rivrea LPN 12/06/2023 4:32 PM Signed Pt notified we are waiting for insurance to review a prior auth for the prolia Kelley Rivera LPN 12/07/2023 10:12 AM Signed [facility]. They note the prescription [...] Please advise patient, and cancel Rx at [facility] [place]. Amos Floyd MD 12/09/2023 12:12 PM Signed [...] [V999.95] 04/26/19 (more content not included)... Normal [facility] 1,25-dihydroxyvitamin D3 [Ma ss/Vol]on 11-11-2023 VIT D1,25 DIHYDROXY 63.7 pg/mL Normal 19.9-79.3 [facility] Comment on above: Order Comment: Speci men Type: BLOOD SPECIMENOrdering Facility: Alexander Gregory MD- [place] Address: [address] [place] [address] Performed By: #### 1 649-3 ####[facility] [id number] [address] [address] [place] Calcium.ionized [Moles/Vol]o n 11-11-2023 Calcium.ionized (Bld) [Mass/Vol] 1.30 mmol/L Normal 1.08-1.30 [facility] Comment on above: Order Comment: Speci men Type: BLOOD SPECIMENOrdering Facility: Alexander Worrell Address: [address] [place] [address] Performed By: #### 1 995-0 ####[facility] [id number] [address] [address] [place] Calcium.ionized adjusted to pH 7.4 (Bld) [Moles/Vol] 1.26 mmol/L Normal 1.08-1.30 [facility] Comment on above: Order Comment: Speci men Type: BLOOD SPECIMENOrdering Facility: Alexander Worrell Address: [address] [place], [place] [address] Performed By: #### 1 995-0 ####[facility] [id number] [place] [address] [place] Comprehensive metabolic 2000 panelon 11-11-2023 Albumin [Mass/Vol] 3.9 g/dL Normal 3.9-4.9 [facility] Comment on above: Order Comment: Speci men Type: BLOOD SPECIMENOrdering Facility: Alexander Worrell Address: [address] [place] [address] Performed By: #### 2 777-1, 2731-8, 96122-5, 6 ####[facility] [id number] [place] [address] [place] ALP [Catalytic activity/Vol] 90 U/L Normal 34-123 [facility] Comment on above: Order Comment: Speci men Type: BLOOD SPECIMENOrdering Facility: Alexander Worrell Address: [address] [place], [place] [address] Performed By: #### 2 777-1, 2731-8, 82253-8, 2142-6 ####[facility] [id number] [address] [address] [place] ALT [Catalytic activity/Vol] 19 U/L Normal 7-38 [facility] Comment on above: Order Comment: Speci men Type: BLOOD SPECIMENOrdering Facility: Alexander Worrell Address: [address] [place] [address] Performed By: #### 2 777-1, 273-8, , 2142-07 ####[facility] [id number] [address] [address] [place] Anion gap [Moles/Vol] 12 mmol/L Normal 8-15 [facility] Comment on above: Order Comment: Speci men Type: BLOOD SPECIMENOrdering Facility: Alexander Worrell Address: [address] [place] [address] Performed By: #### 2 777-1, 273-8, , 2142-07 ####[facility] [id number] [address] [address] [place] AST [Catalytic activity/Vol] 19 U/L Normal 13-35 [facility] Comment on above: Order Comment: Speci men Type: BLOOD SPECIMENOrdering Facility: Alexander Worrell Address: [address] [place] [address] Performed By: #### 2 777-1, 273-8, , 2142-07 ####[facility] [id number] [address] [address] [place] Bilirubin [Mass/Vol] 0.7 mg/dL Normal 0.2-1.3 [facility] Comment on above: Order Comment: Speci men Type: BLOOD SPECIMENOrdering Facility: Alexander Worrell Address: [address] [place] [address] Performed By: #### 2 777-1, 273-8, , 2142-07 ####[facility] [id number] [address] [address] [place] Calcium [Mass/Vol] 9.1 mg/dL Normal 8.5-10.2 [facility] Comment on above: Order Comment: Speci men Type: BLOOD SPECIMENOrdering Facility: Alexander Worrell Address: [address] [place] [address] Performed By: #### 2 777-1, 8, , 2142-07 ####[facility] [id number] [address] [address] [place] Chloride [Moles/Vol] 110 mmol/L High 98-107 [facility] Comment on above: Order Comment: Speci men Type: BLOOD SPECIMENOrdering Facility: Alexander Worrell Address: [address] [place], [place] [address] Performed By: #### 2 777-1, 2738, , 2142-07 ####[facility] [id number] [address] [address] [place] CO2 [Moles/Vol] 22 mmol/L Normal 22-30 [facility] Comment on above: Order Comment: Speci men Type: BLOOD SPECIMENOrdering Facility: Alexander Worrell Address: [address] [place] [address] Performed By: #### 2 777-1, 2738, 11103-5, 2142-07 ####[facility] [id number] [address] [address] [place] Creatinine [Mass/Vol] 1.38 mg/dL High 0.58-0.96 [facility] Comment on above: Order Comment: Speci men Type: BLOOD SPECIMENOrdering Facility: Alexnader Worrell Address: [address] [place] [address] Performed By: #### 2 777-1, 2731-8, 85817-0, 3-6 ####[facility] [id number] [place] [address] [place] Creatinine and Glomerular filtration rate.predicted panel (S/P/Bld) 39 mL/min/1.73m??? Low >=60 [facility] Comment on above: Order Comment: Jody fairbanks Type: BLOOD SPECIMENOrdering Facility: Alexander Worrell Address: [address] [place] [address] Result Comment: Marisabel mated Glomerular Filtration Rate [...] GFR. Performed By: #### 2 777-1, 2731-8, 47232-7, 3-6 ####[facility] [id number] [address] [address] [place] Glucose [Mass/Vol] 68 mg/dL Low 74-99 [facility] Comment on above: Order Comment: Jody fairbanks Type: BLOOD SPECIMENOrdering Facility: Alexander Worrell Address: [address] [place], [place] [address] Result Comment: The [place] Diabetes Association (ADA) provides guidance for cutoff [...] Standards of Medical Care in Diabetes 2016, [place] Diabetes Association. Diabetes Care. 2016.39(Suppl 1). Performed By: #### 2 777-1, 8, , 2142-07 ####[facility] [id number] [address] [address] [place] Potassium [Moles/Vol] 3.7 mmol/L Normal 3.7-5.1 [facility] Comment on above: Order Comment: Speci men Type: BLOOD SPECIMENOrdering Facility: Alexander Worrell Address: [address] [place] [address] Performed By: #### 2 777-1, 8, , 2142-07 ####[facility] [id number] [address] [address] [place] Protein [Mass/Vol] 5.9 g/dL Low 6.3-8.0 [facility] Comment on above: Order Comment: Speci men Type: BLOOD SPECIMENOrdering Facility: Alexander Worrell Address: [address] [place] [address] Performed By: #### 2 777-1, 2730-09, , 2142-07 ####[facility] [id number] [address] [address] [place] Sodium [Moles/Vol] 144 mmol/L Normal 136-144 [facility] Comment on above: Order Comment: Speci men Type: BLOOD SPECIMENOrdering Facility: Alexander Worrell Address: [address] [place] [address] Performed By: #### 2 777-1, 2730-09, , 2142-07 ####[facility] [id number] [address] [address] [place] Urea nitrogen [Mass/Vol] 36 mg/dL High 7-21 [facility] Comment on above: Order Comment: Speci men Type: BLOOD SPECIMENOrdering Facility: Alexander Worrell Address: [address] [place] [address] Performed By: #### 2 777-1, 2730-8, 92099-5, 2142-07 ####[facility] [id number] [place] [address] [place] Cortis SerPl-mCncon 11-11-19 Cortisol [Mass/Vol] 2.3 ug/dL Low 4.8-19.5 [facility] Comment on above: Order Comment: Speci men Type: BLOOD SPECIMENOrdering Facility: Alexander Worrell Address: [address] [place] [address] Result Comment: Prov ided reference range is from 6-10 AM sample collection time. Cortisol Reference Range: 6-10 AM = 4.8-19.5 ug/dL, 4-8 PM = 2.5-11.9 ug/dL Performed By: #### 2 777-1, 8, 33353-2, 2142-07 ####[facility] [id number] [place] [address] [place] PTH-Intact SerPl-mCncon - Parathyrin.intact [Mass/Vol] 113 pg/mL High 15-65 [facility] Comment on above: Order Comment: Speci men Type: BLOOD SPECIMENOrdering Facility: Alexander Worrell Address: [address] [place], [place] [address] Performed By: #### 2 777-1, 2738, 11409-4, 2142-07 ####[facility] [id number] [place] [address] [place] Phosphate SerPl-mCncon 11-10 Phosphate [Mass/Vol] 2.1 mg/dL Low 2.7-4.8 [facility] Comment on above: Order Comment: Speci men Type: BLOOD SPECIMENOrdering Facility: Alexander Gregory [facility] Address: [address] [place] [address] Performed By: #### 2 777-1, 2731-8, 61934-0, 2143-6 ####[facility] [id number] [address] STATES OF [facility] Capillary blood internationa l normalized ratio (INR)Ordered By: Basim Velasquez on 06-19-2023 INR Coag (BldC) [Relative time] 2.0 [facility] Comment on above: Critical Value > 4.0 Whole blood prothrombin time Ordered By: Basim Velasquez on 06-19-2023 PT Coag (Bld) [Time] 21.3 s 11.7-14.9 [facility] Capillary blood internationa l normalized ratio (INR)Ordered By: Basim Velasquez on 05-31-2023 INR Coag (BldC) [Relative time] 2.1 [facility] Comment on above: Critical Value > 4.0 Whole blood prothrombin time Ordered By: Basim Velasquez on 05-31-2023 PT Coag (Bld) [Time] 22.2 s 11.7-14.9 [facility] 1,25-dihydroxyvitamin D3 [Ma ss/Vol]on 05-26-2023 Interpretation and review of laboratory results Abnormal [facility] Basic metabolic 2000 panelon 05-26-2023 Anion gap [Moles/Vol] 11 mmol/L 10 - 2 0 mmol/L [facility] Calcium [Mass/Vol] 8.6 mg/dL 8.6 - 10. 3 mg/dL [facility] Chloride [Moles/Vol] 112 mmol/L High 98 - 10 7 mmol/L [facility] CO2 [Moles/Vol] 22 mmol/L 21 - 32 mmol/L [facility] Creatinine [Mass/Vol] 1.60 mg/dL High 0.50 - 1.05 mg/dL [facility] GFR/1.73 sq M.predicted among non-blacks MDRD (S/P/Bld) [Vol rate/Area] 32 mL/min/{1.73_m2} Low - PINF [facility] Comment on above: Calculations of marisabel mated GFR are performed using the 2020 CKD-EPI Study Refit equation without the race variable for the IDMS-Traceable creatinine methods. https://jasn.asnjournals.org/content//ASN.86665 604[address] Glucose [Mass/Vol] 84 mg/dL 74 - 99 mg/dL [facility] Interpretation and review of laboratory results Abnormal [facility] Potassium [Moles/Vol] 4.3 mmol/L 3.5 - 5.3 mmol/L [facility] Sodium [Moles/Vol] 141 mmol/L 136 - 145 mmol/L [facility] Urea nitrogen [Mass/Vol] 25 mg/dL High 6 - 23 mg/dL [facility] Anion gap [Moles/Vol] 11 mmol/L Normal 10-20 [facility] Comment on above: Performed By: #### 1 994-3 #### THELMA DENNISON ([id number]) [facility] ([facility]) [address] [place] [address] Calcium [Mass/Vol] 8.6 mg/dL Normal 8.6-10.3 [facility] Comment on above: Performed By: #### 1 994-3 #### AURELIAIBLIBRADO DENNISON ([id number]) [facility] ([facility]) [address] [place] [address] Chloride [Moles/Vol] 112 mmol/L High 98-107 [facility] Comment on above: Performed By: #### 1 994-3 #### AURELIAIBLIBRADO MONGE RIO ORTEGA ([id number]) [facility] ([facility]) [address] [place] [address] CO2 [Moles/Vol] 22 mmol/L Normal 21-32 [facility] Comment on above: Performed By: #### 1 994-3 #### AURELIAIBLIBRADO DENNISON ([id number]) [facility] ([facility]) [address] [place] [address] Creatinine [Mass/Vol] 1.60 mg/dL High 0.50-1.05 [facility] Comment on above: Performed By: #### 1 994-3 #### THELMA DENNISON ([id number]) [facility] ([facility]) [address] [place] [address] Glomerular filtration rate/1.73 sq M.predicted 32 mL/min/1.73m*2 Low >60 [facility] Comment on above: Result Comment: Calc ulations of estimated GFR are performed using the 2020 CKD-EPI Study Refit equation without the race variable for the IDMS-Traceable creatinine methods. https://jasn.asnjournals.org/content/early//ASN.46164 [address] Performed By: #### 1 994-3 #### THELMA DENNISON ([id number]) [facility] ([facility]) [address] [place] [address] Glucose [Mass/Vol] 84 mg/dL Normal 74-99 [facility] Comment on above: Performed By: #### 1 994-3 #### THELMA DENNISON ([id number]) [facility] ([facility]) [address] [place] [address] Potassium [Moles/Vol] 4.3 mmol/L Normal 3.5-5.3 [facility] Comment on above: Performed By: #### 1 994-3 #### THELMA DENNISON ([id number]) [facility] ([facility]) [address] [place] [address] Sodium [Moles/Vol] 141 mmol/L Normal 136-145 [facility] Comment on above: Performed By: #### 1 994-3 #### THELMA DENNISON ([id number]) [facility] ([facility]) [address] [place] [address] Urea nitrogen [Mass/Vol] 25 mg/dL High 6-23 [facility] Comment on above: Performed By: #### 1 994-3 #### THELMA DENNISON ([id number]) [facility] ([facility]) [address] [place] [address] CBC panel Auto (Bld)on 05-25 Erythrocyte distribution width (RBC) [Ratio] 14.5 % 11.5 - 14.5 % [facility] Hematocrit (Bld) [Volume fraction] 41.0 % 36.0 - 46.0 % [facility] Hemoglobin (Bld) [Mass/Vol] 13.4 g/dL 12.0 - 16.0 g/dL [facility] Interpretation and review of laboratory results Abnormal [facility] MCH (RBC) [Entitic mass] 29.4 pg 26.0 - 34.0 pg [facility] MCHC (RBC) [Mass/Vol] 32.7 g/dL 32.0 - 36.0 g/dL [facility] MCV (RBC) [Entitic vol] 90 fL 80 - 100 fL [facility] Nucleated RBC/100 WBC (Bld) [Ratio] 0.0 % [facility] Platelets (Bld) [#/Vol] 251 10*3/uL [facility] RBC (Bld) [#/Vol] 4.56 10*6/uL [facility] WBC (Bld) [#/Vol] 12.9 10*3/uL High [facility] Erythrocyte distribution width (RBC) [Ratio] 14.5 % Normal 11.5-14.5 [facility] Comment on above: Performed By: #### 3 4529-8 #### THELMA DENNISON (29543) [facility] ([facility]) [address] [place] [address] Hematocrit (Bld) [Volume fraction] 41.0 % Normal 36.0-46.0 [facility] Comment on above: Performed By: #### 3 4529-8 #### THELMA DENNISON ([id number]) [facility] ([facility]) [address] [place] [address] Hemoglobin (Bld) [Mass/Vol] 13.4 g/dL Normal 12.0-16.0 [facility] [facility] Comment on above: Performed By: #### 3 4529-8 #### THELMA DENNISON ([id number]) [facility] ([facility]) [address] [place] [address] 67030 MCH (RBC) [Entitic mass] 29.4 pg Normal 26.0-34.0 [facility] Comment on above: Performed By: #### 3 4529-8 #### THELMA DENNISON ([id number]) [facility] ([facility]) [address] [place] [address] 19032 MCHC (RBC) [Mass/Vol] 32.7 g/dL Normal 32.0-36.0 [facility] Comment on above: Performed By: #### 3 4529-8 #### THELMA DENNISON ([id number]) [facility] ([facility]) [address] [place] [address] 60988 MCV (RBC) [Entitic vol] 90 fL Normal 80-100 [facility] Comment on above: Performed By: #### 3 4529-8 #### THELMA DENNISON ([id number]) [facility] ([facility]) [address] [place] [address] 87339 Nucleated RBC/100 WBC (Bld) [Ratio] 0.0 /100 WBCs Normal 0.0-0.0 [facility] Comment on above: Performed By: #### 3 4529-8 #### THELMA DENNISON ([id number]) [facility] ([facility]) [address] [place] [address] 19752 Platelets (Bld) [#/Vol] 251 x10*3/uL Normal 150-450 [facility] Comment on above: Performed By: #### 3 4529-8 #### THELMA DENNISON ([id number]) [facility] ([facility]) [address] [place] [address] 55121 RBC (Bld) [#/Vol] 4.56 x10*6/uL Normal 4.00-5.20 [facility] Comment on above: Performed By: #### 3 4529-8 #### THELMA DENNISON ([id number]) [facility] ([facility]) [address] [place] [address] WBC (Bld) [#/Vol] 12.9 x10*3/uL High 4.4-11.3 [facility] Comment on above: Performed By: #### 3 4529-8 #### THELMA DENNISON ([id number]) [facility] ([facility]) [address] [place] [address] 27263 Coagulation tissue factor in ducedon 05-26-2023 PT Coag (PPP) [Time] 22.7 s High 9.8-12.8 [facility] Comment on above: Performed By: #### 3 4529-8 #### THELMA DENNISON ([id number]) [facility] ([facility]) [address] [place] [address] 40607 No Panel Informationon 05-25 Extra Tube Hold for add-ons. [facility] Comment on above: Auto resulted. [facility] PT Coag (PPP) [Time]on 05-25 INR Coag (PPP) [Relative time] 2.0 High 0.9-1.1 [facility] Comment on above: Performed By: #### 3 4529-8 #### THELMA DENNISON ([id number]) [facility] ([facility]) [address] [place] [address] 07268 INR Coag (PPP) [Relative time] 2.0 {INR} High 0.9 - 1.1 [facility] Interpretation and review of laboratory results Abnormal [facility] Protime-INRon 05-26-2023 PT Coag (PPP) [Time] 22.7 s High [facility] Vitamin D 1,25 Dihydroxy (fo r eval of hypercalcemia)on 04-05-2024 1,25-dihydroxyvitamin D3 [Mass/Vol] 179.0 pg/mL High 19.9 - 79.3 pg/mL [facility] Comment on above: INTERPRETIVE INFORMA TION: Vitamin D, 1,25-Dihydroxy This test is primarily indicated during patient evaluation for hypercalcemia and renal failure. A normal result does not rule out Vitamin D deficiency. The recommended test for diagnosing Vitamin D deficiency is Vitamin D 25-hydroxy. Performed By: [facility] [address] [place] [address] Concierge Manager: Jefferson Kerr MD, PhD CLIA Number: [id number] 25-hydroxyvitamin D3 [Mass/V ol]on 05-25-2023 Interpretation and review of laboratory results Normal [facility] Deficiency: < 20 ng/ ml Insufficiency: 20-29 ng/ml Sufficiency: 30-100 ng/ml This assay accurately quantifies the sum of Vitamin D3, 25-Hydroxy and Vitamin D2,25-Hydroxy. [facility] Basic metabolic 2000 panelon 05-25-2023 Anion gap [Moles/Vol] 11 mmol/L Normal 10-20 [facility] Comment on above: Performed By: #### 3 4529-8 #### THELMA DENNISON ([id number]) [facility] (C) [address] [place] [address] 10940 Calcium [Mass/Vol] 9.9 mg/dL Normal 8.6-10.3 [facility] Comment on above: Performed By: #### 3 4529-8 #### THELMA DENNISON ([id number]) [facility] ([facility]) [address] [place] [address] Chloride [Moles/Vol] 109 mmol/L High 98-107 [facility] Comment on above: Performed By: #### 3 4529-8 #### THELMA DENNISON ([id number]) [facility] ([facility]) [address] [place] [address] 52008 CO2 [Moles/Vol] 23 mmol/L Normal 21-32 [facility] Comment on above: Performed By: #### 3 4529-8 #### AURELIAIBLIBRADO NOEMI ORTEGA ([id number]) [facility] ([facility]) [address] [place] [address] Creatinine [Mass/Vol] 1.80 mg/dL High 0.50-1.05 [facility] Comment on above: Performed By: #### 3 4529-8 #### AURELIAIBLIBRADO NOEMI ORTEGA ([id number]) [facility] ([facility]) [address] [place] [address] 62214 Glomerular filtration rate/1.73 sq M.predicted 28 mL/min/1.73m*2 Low >60 [facility] Comment on above: Result Comment: Calc ulations of estimated GFR are performed using the 2020 CKD-EPI Study Refit equation without the race variable for the IDMS-Traceable creatinine methods. https://jasn.asnjournals.org/content//ASN.27746 12703 Performed By: #### 3 4529-8 #### THELMA NOEMI ORTEGA ([id number]) [facility] ([facility]) [address] [place] [address] 53776 Glucose [Mass/Vol] 135 mg/dL High 74-99 [facility] Comment on above: Performed By: #### 3 4529-8 #### THELMA NOEMI ORTEGA ([id number]) [facility] ([facility]) [address] [place] [address] 85111 Potassium [Moles/Vol] 3.7 mmol/L Normal 3.5-5.3 [facility] Comment on above: Performed By: #### 3 4529-8 #### ANAIBELIMARILIN NOEMI ORTEGA ([id number]) [facility] ([facility]) [address] [place] [address] 65422 Sodium [Moles/Vol] 139 mmol/L Normal 136-145 [facility] Comment on above: Performed By: #### 3 4529-8 #### AURELIAIBLIBRADO NOEMI ORTEGA ([id number]) [facility] ([facility]) [address] [place] [address] 32010 Urea nitrogen [Mass/Vol] 33 mg/dL High 6-23 [facility] Comment on above: Performed By: #### 3 4529-8 #### THELMA DENNISON ([id number]) [facility] ([facility]) [address] [place] [address] Anion gap [Moles/Vol] 11 mmol/L 10 - 2 0 mmol/L [facility] Calcium [Mass/Vol] 9.9 mg/dL 8.6 - 10. 3 mg/dL [facility] Chloride [Moles/Vol] 109 mmol/L High 98 - 10 7 mmol/L [facility] CO2 [Moles/Vol] 23 mmol/L 21 - 32 mmol/L [facility] Creatinine [Mass/Vol] 1.80 mg/dL High 0.50 - 1.05 mg/dL [facility] GFR/1.73 sq M.predicted among non-blacks MDRD (S/P/Bld) [Vol rate/Area] 28 mL/min/{1.73_m2} Low - PINF [facility] Comment on above: Calculations of marisabel mated GFR are performed using the 2020 CKD-EPI Study Refit equation without the race variable for the IDMS-Traceable creatinine methods. https://jasn.asnjournals.org/content/early//ASN.60464 36376 Glucose [Mass/Vol] 135 mg/dL High 74 - 99 mg/dL [facility] Interpretation and review of laboratory results Abnormal [facility] Potassium [Moles/Vol] 3.7 mmol/L 3.5 - 5.3 mmol/L [facility] Sodium [Moles/Vol] 139 mmol/L 136 - 145 mmol/L [facility] Urea nitrogen [Mass/Vol] 33 mg/dL High 6 - 23 mg/dL [facility] Calcidiolon 05-25-2023 25-hydroxyvitamin D3 [Mass/Vol] 45 ng/mL Normal 30-100 [facility] Comment on above: Order Comment: The A PTT is no longer used for monitoring Unfractionated Heparin Therapy. For monitoring Heparin Therapy, use the Heparin Assay. Performed By: #### 3 4529-8 #### THELMA DENNISON ([id number]) [facility] ([facility]) [address] [place] [address] 71300 Calcium, ionizedon Calcium.ionized (Bld) [Moles/Vol] 1.32 mmol/L 1.1 - 1.33 mmol/L [facility] Comment on above: The performance domi acteristics of ionized calcium tested in heparinized plasma or serum have been validated by the individual laboratory site where testing is performed. Testing on heparinized plasma or serum is not approved by the FDA; however, such approval is not necessary. Calcium.ionizedon 05-25-2023 Calcium.ionized (Bld) [Moles/Vol] 1.32 mmol/L Normal 1.1-1.33 [facility] Comment on above: Result Comment: The performance characteristics of ionized calcium tested in heparinized plasma or serum have been validated by the individual laboratory site where testing is performed. Testing on heparinized plasma or serum is not approved by the FDA; however, such approval is not necessary. Performed By: #### 3 4529-8 #### THELMA DENNISON ([id number]) [facility] ([facility]) [address] [place] [address] 14179 Calcium.ionized (Bld) [Moles /Vol]on 05-25-2023 Interpretation and review of laboratory results Normal [facility] Coagulation tissue factor in ducedon 05-25-2023 PT Coag (PPP) [Time] 23.0 s High 9.8-12.8 [facility] Comment on above: Performed By: #### 3 4529-8 #### THELMA DENNISON ([id number]) [facility] ([facility]) [address] [place] [address] 11729 HbA1c (Bld) [Mass fraction]o n 05-25-2023 Average glucose Estimated from glycated hemoglobin (Bld) [Mass/Vol] 105 mg/dL Not Established [facility] Diagnosis of Diabetes-Adults Non-Diabetic: < or = 5.6% Increased risk for developing diabetes: 5.7-6.4% Diagnostic of diabetes: > or = 6.5% Monitoring of Diabetes Age (y)..................... .. Therapeutic Goal (%) Adults: >18..................... ....<7.0 Pediatrics: 13-18................... <7.5 Pediatrics: 7-12.................... <8.0 Pediatrics: 0-6..................... 7.5-8.5 [employer]. Diabetes Care 33(S1), Feb 2009 [facility] Average glucose Estimated from glycated hemoglobin (Bld) [Mass/Vol] 105 mg/dL Normal Not Established [facility] Comment on above: Order Comment: The A PTT is no longer used for monitoring Unfractionated Heparin Therapy. For monitoring Heparin Therapy, use the Heparin Assay. Performed By: #### 3 4529-8 #### THELMA DENNISON ([id number]) [facility] (C) [address] [place] [address] Hemoglobin A1Con 05-25-2023 HbA1c (Bld) [Mass fraction] 5.3 % see below [facility] Hemoglobin A1c/Hemoglobin.to gage 05-25-2023 HbA1c (Bld) [Mass fraction] 5.3 % Normal see below [facility] Comment on above: Order Comment: The A PTT is no longer used for monitoring Unfractionated Heparin Therapy. For monitoring Heparin Therapy, use the Heparin Assay. Performed By: #### 3 4529-8 #### THELMA DENNISON ([id number]) [facility] ([facility]) [address] [place] [address] No Panel Informationon 05-24 Extra Tube Hold for add-ons. [facility] Comment on above: Auto resulted. [facility] PT Coag (PPP) [Time]on 05-24 INR Coag (PPP) [Relative time] 2.0 High 0.9-1.1 [facility] Comment on above: Performed By: #### 3 4529-8 #### THELMA DENNISON ([id number]) [facility] ([facility]) [address] [place] [address] 03331 INR Coag (PPP) [Relative time] 2.0 {INR} High 0.9 - 1.1 [facility] Interpretation and review of laboratory results Abnormal [facility] PTH, Intacton 05-25-2023 Parathyrin.intact [Mass/Vol] 16.3 pg/mL Low 18.5 - 88.0 pg/mL [facility] Parathyrin related proteinon 05-25-2023 Parathyrin related protein [Moles/Vol] 1.1 pmol/L Normal < or = 4.2 [facility] Comment on above: Result Comment: ADDITIONAL INFORMATION This test was developed and its performance characteristics determined by [facility] in a manner consistent with CLIA requirements. This test has not been cleared or approved by the U.S. Food and Drug Administration. Test Performed by: [facility] [address] Insurance Follow Up Representative: Sunny Triplett M.D. Ph.D.; CLIA# [id number] Performed By: #### 1 994-3 #### THELMA DENNISON ([id number]) [facility] ([facility]) [address] [place] [address] 21624 Parathyrin.intacton 05-25-19 Parathyrin.intact [Mass/Vol] 16.3 pg/mL Low 18.5-88.0 [facility] Comment on above: Performed By: #### 3 4529-8 #### THELMA DENNISON ([id number]) [facility] ([facility]) [address] [place] [address] 83285 Parathyrin.intact [Mass/Vol] on 05-25-2023 Interpretation and review of laboratory results Abnormal [facility] Phosphateon 05-25-2023 Phosphate [Mass/Vol] 3.2 mg/dL Normal 2.5-4.9 [facility] Comment on above: Result Comment: The performance characteristics of phosphorus testing in heparinized plasma have been validated by the individual laboratory site where testing is performed. Testing on heparinized plasma is not approved by the FDA; however, such approval is not necessary. Performed By: #### 3 4529-8 #### THELMA DENNISON ([id number]) [facility] ([facility]) [address] [place] [address] Phosphate [Mass/Vol]on 05-24 Interpretation and review of laboratory results Normal [facility] Phosphoruson 05-25-2023 Phosphate [Mass/Vol] 3.2 mg/dL 2.5 - 4 .9 mg/dL [facility] Comment on above: The performance domi acteristics of phosphorus testing in heparinized plasma have been validated by the individual laboratory site where testing is performed. Testing on heparinized plasma is not approved by the FDA; however, such approval is not necessary. Protime-INRon 05-25-2023 PT Coag (PPP) [Time] 23.0 s [facility] Vitamin D 25-Hydroxy,Total ( for eval of Vitamin D levels)on 05-25-2023 25-hydroxyvitamin D3 [Mass/Vol] 45 ng/mL 30 - 100 ng/mL [facility] CBC W Auto Differential pane l (Bld)on 05-24-2023 Basophils (Bld) [#/Vol] 0.06 x10*3/uL Normal 0.00-0.10 [facility] Comment on above: Performed By: #### 5 7021-8 #### THELMA DENNISON ([id number]) [facility] ([facility]) [address] [place] [address] Basophils/100 WBC (Bld) 0.6 % Normal 0.0-2.0 [facility] Comment on above: Performed By: #### 5 7021-8 #### THELMA DENNISON ([id number]) [facility] ([facility]) [address] [place] [address] 86271 Eosinophils (Bld) [#/Vol] 1.08 x10*3/uL High 0.00-0.40 [facility] Comment on above: Performed By: #### 5 7021-8 #### THELMA DENNISON ([id number]) [facility] ([facility]) [address] [place] [address] 95989 Eosinophils/100 WBC (Bld) 11.2 % Normal 0.0-6.0 [facility] Comment on above: Performed By: #### 5 7021-8 #### THELMA DENNISON ([id number]) [facility] ([facility]) [address] [place] [address] 03257 Erythrocyte distribution width (RBC) [Ratio] 14.2 % Normal 11.5-14.5 [facility] Comment on above: Performed By: #### 5 7021-8 #### THELMA DENNISON ([id number]) [facility] ([facility]) [address] [place] [address] 12080 Hematocrit (Bld) [Volume fraction] 39.8 % Normal 36.0-46.0 [facility] Comment on above: Performed By: #### 5 7021-8 #### THELMA DENNISON ([id number]) [facility] ([facility]) [address] [place] [address] 48141 Hemoglobin (Bld) [Mass/Vol] 13.5 g/dL Normal 12.0-16.0 [facility] Comment on above: Performed By: #### 5 7021-8 #### THELMA DENNISON ([id number]) [facility] ([facility]) [address] [place] [address] 24305 Immature granulocytes (Bld) [#/Vol] 0.09 x10*3/uL Normal 0.00-0.50 [facility] Comment on above: Performed By: #### 5 7021-8 #### THELMA DENNISON ([id number]) [facility] ([facility]) [address] [place] [address] 12214 Immature granulocytes/100 WBC (Bld) 0.9 % Normal 0.0-0.9 [facility] Comment on above: Result Comment: Linda ture Granulocyte Count (IG) includes promyelocytes, myelocytes and metamyelocytes but does not include bands. Percent differential counts (%) should be interpreted in the context of the absolute cell counts (cells/UL). Performed By: #### 5 7021-8 #### THELMA DENNISON ([id number]) [facility] ([facility]) [address] [place] [address] 44590 Lymphocytes (Bld) [#/Vol] 1.90 x10*3/uL Normal 0.80-3.00 [facility] Comment on above: Performed By: #### 5 7021-8 #### THELMA DENNISON ([id number]) [facility] ([facility]) [address] [place] [address] 50826 Lymphocytes/100 WBC (Bld) 19.8 % Normal 13.0-44.0 [facility] Comment on above: Performed By: #### 5 7021-8 #### THELMA DENNISON ([id number]) [facility] ([facility]) [address] [place] [address] 90862 MCH (RBC) [Entitic mass] 29.3 pg Normal 26.0-34.0 [facility] Comment on above: Performed By: #### 5 7021-8 #### THELMA DENNISON ([id number]) [facility] ([facility]) [address] [place] [address] 40762 MCHC (RBC) [Mass/Vol] 33.9 g/dL Normal 32.0-36.0 [facility] Comment on above: Performed By: #### 5 7021-8 #### THELMA DENNISON ([id number]) [facility] ([facility]) [address] [place] [address] 92067 MCV (RBC) [Entitic vol] 86 fL Normal 80-100 [facility] Comment on above: Performed By: #### 5 7021-8 #### THELMA DENNISON ([id number]) [facility] ([facility]) [address] [place] [address] 89715 Monocytes (Bld) [#/Vol] 0.96 x10*3/uL High 0.05-0.80 [facility] Comment on above: Performed By: #### 5 7021-8 #### THELMA DENNISON ([id number]) [facility] ([facility]) [address] [place] [address] 44964 Monocytes/100 WBC (Bld) 10.0 % Normal 2.0-10.0 [facility] Comment on above: Performed By: #### 5 7021-8 #### THELMA DENNISON ([id number]) [facility] ([facility]) [address] [place] [address] 07760 Neutrophils (Bld) [#/Vol] 5.52 x10*3/uL High 1.60-5.50 [facility] Comment on above: Result Comment: Perc ent differential counts (%) should be interpreted in the context of the absolute cell counts (cells/uL). Performed By: #### 5 7021-8 #### THELMA DENNISON ([id number]) [facility] ([facility]) [address] [place] [address] 72437 Neutrophils/100 WBC (Bld) 57.5 % Normal 40.0-80.0 [facility] Comment on above: Performed By: #### 5 7021-8 #### THELMA DENNISON ([id number]) [facility] ([facility]) [address] [place] [address] 27382 Nucleated RBC/100 WBC (Bld) [Ratio] 0.0 /100 WBCs Normal 0.0-0.0 [facility] Comment on above: Performed By: #### 5 7021-8 #### THELMA DENNISON ([id number]) [facility] ([facility]) [address] [place] [address] 08720 Platelets (Bld) [#/Vol] 249 x10*3/uL Normal 150-450 [facility] Comment on above: Performed By: #### 5 7021-8 #### THELMA DENNISON ([id number]) [facility] ([facility]) [address] [place] [address] 06135 RBC (Bld) [#/Vol] 4.61 x10*6/uL Normal 4.00-5.20 [facility] Comment on above: Performed By: #### 5 7021-8 #### THELMA DENNISON ([id number]) [facility] ([facility]) [address] [place] [address] 40355 WBC (Bld) [#/Vol] 9.6 x10*3/uL Normal 4.4-11.3 [facility] Comment on above: Performed By: #### 5 7021-8 #### THELMA DENNISON ([id number]) [facility] ([facility]) [address] [place] [address] 67742 Basophils (Bld) [#/Vol] 0.06 10*3/uL [facility] Basophils/100 WBC (Bld) 0.6 % 0.0 - 2.0 % [facility] Eosinophils (Bld) [#/Vol] 1.08 10*3/uL High [facility] Eosinophils/100 WBC (Bld) 11.2 % 0.0 - 6.0 % [facility] Erythrocyte distribution width (RBC) [Ratio] 14.2 % 11.5 - 14.5 % [facility] Hematocrit (Bld) [Volume fraction] 39.8 % 36.0 - 46.0 % [facility] Hemoglobin (Bld) [Mass/Vol] 13.5 g/dL 12.0 - 16.0 g/dL [facility] Immature granulocytes (Bld) [#/Vol] 0.09 10*3/uL [facility] Immature granulocytes/100 WBC (Bld) 0.9 % 0.0 - 0.9 % [facility] Comment on above: Immature Granulocyte Count (IG) includes promyelocytes, myelocytes and metamyelocytes but does not include bands. Percent differential counts (%) should be interpreted in the context of the absolute cell counts (cells/UL). Interpretation and review of laboratory results Abnormal [facility] Lymphocytes (Bld) [#/Vol] 1.90 10*3/uL [facility] Lymphocytes/100 WBC (Bld) 19.8 % 13.0 - 44.0 % [facility] MCH (RBC) [Entitic mass] 29.3 pg 26.0 - 34.0 pg [facility] MCHC (RBC) [Mass/Vol] 33.9 g/dL 32.0 - 36.0 g/dL [facility] MCV (RBC) [Entitic vol] 86 fL 80 - 100 fL [facility] Monocytes (Bld) [#/Vol] 0.96 10*3/uL [facility] Monocytes/100 WBC (Bld) 10.0 % 2.0 - 10.0 % [facility] Neutrophils (Bld) [#/Vol] 5.52 10*3/uL High [facility] Comment on above: Percent differential counts (%) should be interpreted in the context of the absolute cell counts (cells/uL). Neutrophils/100 WBC (Bld) 57.5 % 40.0 - 80.0 % [facility] Nucleated RBC/100 WBC (Bld) [Ratio] 0.0 % [facility] Platelets (Bld) [#/Vol] 249 10*3/uL [facility] RBC (Bld) [#/Vol] 4.61 10*6/uL [facility] WBC (Bld) [#/Vol] 9.6 10*3/uL [facility] Basophils (Bld) [#/Vol] 0.07 x10*3/uL Normal 0.00-0.10 [facility] Comment on above: Performed By: #### 5 7021-8 #### THELMA DENNISON ([id number]) [facility] ([facility]) [address] [place] [address] 11085 Basophils/100 WBC (Bld) 0.8 % Normal 0.0-2.0 [facility] Comment on above: Performed By: #### 5 7021-8 #### THELMA DENNISON ([id number]) [facility] ([facility]) [address] [place] [address] 79476 Eosinophils (Bld) [#/Vol] 1.09 x10*3/uL High 0.00-0.40 [facility] Comment on above: Performed By: #### 5 7021-8 #### THELMA DENNISON ([id number]) [facility] ([facility]) [address] [place] [address] Eosinophils/100 WBC (Bld) 12.0 % Normal 0.0-6.0 [facility] Comment on above: Performed By: #### 5 7021-8 #### THELMA DENNISON ([id number]) [facility] ([facility]) [address] [place] [address] Erythrocyte distribution width (RBC) [Ratio] 14.1 % Normal 11.5-14.5 [facility] Comment on above: Performed By: #### 5 7021-8 #### THELMA DENNISON ([id number]) [facility] ([facility]) [address] [place] [address] 55971 Hematocrit (Bld) [Volume fraction] 41.4 % Normal 36.0-46.0 [facility] Comment on above: Performed By: #### 5 7021-8 #### THELMA DENNISON ([id number]) [facility] ([facility]) [address] [place] [address] 09097 Hemoglobin (Bld) [Mass/Vol] 14.1 g/dL Normal 12.0-16.0 [facility] Comment on above: Performed By: #### 5 7021-8 #### THELMA DENNISON ([id number]) [facility] ([facility]) [address] [place] [address] [id number] Immature granulocytes (Bld) [#/Vol] 0.12 x10*3/uL Normal 0.00-0.50 [facility] Comment on above: Performed By: #### 5 7021-8 #### THELMA DENNISON ([id number]) [facility] ([facility]) [address] [place] [address] 54953 Immature granulocytes/100 WBC (Bld) 1.3 % High 0.0-0.9 [facility] Comment on above: Result Comment: Linda ture Granulocyte Count (IG) includes promyelocytes, myelocytes and metamyelocytes but does not include bands. Percent differential counts (%) should be interpreted in the context of the absolute cell counts (cells/UL). Performed By: #### 5 7021-8 #### THELMA DENNISON ([id number]) [facility] ([facility]) [address] [place] [address] 34407 Lymphocytes (Bld) [#/Vol] 1.88 x10*3/uL Normal 0.80-3.00 [facility] Comment on above: Performed By: #### 5 7021-8 #### THELMA DENNISON ([id number]) [facility] ([facility]) [address] [place] [address] 09842 Lymphocytes/100 WBC (Bld) 20.7 % Normal 13.0-44.0 [facility] Comment on above: Performed By: #### 5 7021-8 #### THELMA DENNISON ([id number]) [facility] ([facility]) [address] [place] [address] 90552 MCH (RBC) [Entitic mass] 29.4 pg Normal 26.0-34.0 [facility] Comment on above: Performed By: #### 5 7021-8 #### THELMA DENNISON ([id number]) [facility] ([facility]) [address] [place] [address] 15007 MCHC (RBC) [Mass/Vol] 34.1 g/dL Normal 32.0-36.0 [facility] Comment on above: Performed By: #### 5 7021-8 #### THELMA DENNISON ([id number]) [facility] ([facility]) [address] [place] [address] 81992 MCV (RBC) [Entitic vol] 86 fL Normal 80-100 [facility] Comment on above: Performed By: #### 5 7021-8 #### THELMA DENNISON ([id number]) [facility] ([facility]) [address] [place] [address] 17597 Monocytes (Bld) [#/Vol] 0.87 x10*3/uL High 0.05-0.80 [facility] Comment on above: Performed By: #### 5 7021-8 #### THELMA DENNISON ([id number]) [facility] ([facility]) [address] [place] [address] 62514 Monocytes/100 WBC (Bld) 9.6 % Normal 2.0-10.0 [facility] Comment on above: Performed By: #### 5 7021-8 #### THELMA DENNISON ([id number]) [facility] ([facility]) [address] [place] [address] 33852 Neutrophils (Bld) [#/Vol] 5.05 x10*3/uL Normal 1.60-5.50 [facility] Comment on above: Result Comment: Perc ent differential counts (%) should be interpreted in the context of the absolute cell counts (cells/uL). Performed By: #### 5 7021-8 #### THELMA DENNISON ([id number]) [facility] ([facility]) [address] [place] [address] 36373 Neutrophils/100 WBC (Bld) 55.6 % Normal 40.0-80.0 [facility] Comment on above: Performed By: #### 5 7021-8 #### THELMA DENNISON ([id number]) [facility] ([facility]) [address] [place] [address] 69908 Nucleated RBC/100 WBC (Bld) [Ratio] 0.0 /100 WBCs Normal 0.0-0.0 [facility] Comment on above: Performed By: #### 5 7021-8 #### THELMA DENNISON ([id number]) [facility] ([facility]) [address] [place] [address] 12164 Platelets (Bld) [#/Vol] 240 x10*3/uL Normal 150-450 [facility] Comment on above: Performed By: #### 5 7021-8 #### THELMA DENNISON ([id number]) [facility] ([facility]) [address] [place] [address] 47435 RBC (Bld) [#/Vol] 4.80 x10*6/uL Normal 4.00-5.20 [facility] Comment on above: Performed By: #### 5 7021-8 #### THELMA DENNISON ([id number]) [facility] ([facility]) [address] [place] [address] 26166 WBC (Bld) [#/Vol] 9.1 x10*3/uL Normal 4.4-11.3 [facility] Comment on above: Performed By: #### 5 7021-8 #### THELMA DENNISON ([id number]) [facility] ([facility]) [address] [place] [address] 85700 Basophils (Bld) [#/Vol] 0.07 10*3/uL [facility] Basophils/100 WBC (Bld) 0.8 % 0.0 - 2.0 % [facility] Eosinophils (Bld) [#/Vol] 1.09 10*3/uL High [facility] Eosinophils/100 WBC (Bld) 12.0 % 0.0 - 6.0 % [facility] Erythrocyte distribution width (RBC) [Ratio] 14.1 % 11.5 - 14.5 % [facility] Hematocrit (Bld) [Volume fraction] 41.4 % 36.0 - 46.0 % [facility] Hemoglobin (Bld) [Mass/Vol] 14.1 g/dL 12.0 - 16.0 g/dL [facility] Immature granulocytes (Bld) [#/Vol] 0.12 10*3/uL [facility] Immature granulocytes/100 WBC (Bld) 1.3 % High 0.0 - 0.9 % [facility] Comment on above: Immature Granulocyte Count (IG) includes promyelocytes, myelocytes and metamyelocytes but does not include bands. Percent differential counts (%) should be interpreted in the context of the absolute cell counts (cells/UL). Interpretation and review of laboratory results Abnormal [facility] Lymphocytes (Bld) [#/Vol] 1.88 10*3/uL [facility] Lymphocytes/100 WBC (Bld) 20.7 % 13.0 - 44.0 % [facility] MCH (RBC) [Entitic mass] 29.4 pg 26.0 - 34.0 pg [facility] MCHC (RBC) [Mass/Vol] 34.1 g/dL 32.0 - 36.0 g/dL [facility] MCV (RBC) [Entitic vol] 86 fL 80 - 100 fL [facility] Monocytes (Bld) [#/Vol] 0.87 10*3/uL High [facility] Monocytes/100 WBC (Bld) 9.6 % 2.0 - 10.0 % [facility] Neutrophils (Bld) [#/Vol] 5.05 10*3/uL [facility] Comment on above: Percent differential counts (%) should be interpreted in the context of the absolute cell counts (cells/uL). Neutrophils/100 WBC (Bld) 55.6 % 40.0 - 80.0 % [facility] Nucleated RBC/100 WBC (Bld) [Ratio] 0.0 % [facility] Platelets (Bld) [#/Vol] 240 10*3/uL [facility] RBC (Bld) [#/Vol] 4.80 10*6/uL [facility] WBC (Bld) [#/Vol] 9.1 10*3/uL [facility] Calcitriolon 05-24-2023 1,25-dihydroxyvitamin D3 [Mass/Vol] 179.0 pg/mL High 19.9-79.3 [facility] Comment on above: Result Comment: INTE RPRETIVE INFORMATION: Vitamin D, 1,25-Dihydroxy This test is primarily indicated during patient evaluation for hypercalcemia and renal failure. A normal result does not rule out Vitamin D deficiency. The recommended test for diagnosing Vitamin D deficiency is Vitamin D 25-hydroxy. Performed By: [facility] [address] [place] [address] 21475 Concierge Manager: Jefferson Kerr MD, PhD [place] Number: [id number] Performed By: #### 3 4529-8 #### THELMA DENNISON ([id number]) [facility] ([facility]) [address] [place] [address] 21944 Calcium, ionizedon Calcium.ionized (Bld) [Moles/Vol] 1.53 mmol/L High 1.1 - 1.33 mmol/L [facility] Comment on above: The performance domi acteristics of ionized calcium tested in heparinized plasma or serum have been validated by the individual laboratory site where testing is performed. Testing on heparinized plasma or serum is not approved by the FDA; however, such approval is not necessary. Calcium.ionizedon 05-24-2023 Calcium.ionized (Bld) [Moles/Vol] 1.53 mmol/L High 1.1-1.33 [facility] Comment on above: Result Comment: The performance characteristics of ionized calcium tested in heparinized plasma or serum have been validated by the individual laboratory site where testing is performed. Testing on heparinized plasma or serum is not approved by the FDA; however, such approval is not necessary. Performed By: #### 1 994-3 #### THELMA DENNISON ([id number]) [facility] ([facility]) [address] [place] [address] 36146 Calcium.ionized (Bld) [Moles /Vol]on 05-24-2023 Interpretation and review of laboratory results Abnormal [facility] Coagulation tissue factor in ducedon 05-24-2023 PT Coag (PPP) [Time] 25.3 s High 9.8-12.8 [facility] Comment on above: Performed By: #### 5 902-2 #### THELMA DENNISON ([id number]) [facility] ([facility]) [address] [place] [address] 49509 Comprehensive metabolic 2000 panelon 05-24-2023 Albumin BCP dye [Mass/Vol] 3.1 g/dL Low 3.4-5.0 [facility] Comment on above: Performed By: #### 2 4323-8 #### THELMA DENNISON ([id number]) [facility] ([facility]) [address] [place] [address] 52720 ALP [Catalytic activity/Vol] 47 U/L Normal 33-136 [facility] Comment on above: Performed By: #### 2 4323-8 #### AURELIAIBLIBRADO DENNISON ([id number]) [facility] ([facility]) [address] [place] [address] 91766 ALT With P-5'-P [Catalytic activity/Vol] 39 U/L Normal 7-45 [facility] Comment on above: Result Comment: Liz ents treated with Sulfasalazine may generate falsely decreased results for ALT. Performed By: #### 2 4323-8 #### AURELIAIBLIBRADO DENNISON ([id number]) [facility] ([facility]) [address] [place] [address] 66080 Anion gap [Moles/Vol] 11 mmol/L Normal 10-20 [facility] Comment on above: Performed By: #### 2 4323-8 #### AURELIAIBLIBRADO DENNISON ([id number]) [facility] ([facility]) [address] [place] [address] 97506 AST With P-5'-P [Catalytic activity/Vol] 45 U/L High 9-39 [facility] Comment on above: Performed By: #### 2 4323-8 #### AURELIAIBLIBRADO DENNISON ([id number]) [facility] ([facility]) [address] [place] [address] 22602 Bilirubin [Mass/Vol] 0.5 mg/dL Normal 0.0-1.2 [facility] Comment on above: Performed By: #### 2 4323-8 #### AURELIAIBLIBRADO DENNISON ([id number]) [facility] ([facility]) [address] [place] [address] Calcium [Mass/Vol] 11.1 mg/dL High 8.6-10.3 [facility] Comment on above: Performed By: #### 2 4323-8 #### AURELIAIBLIBRADO MONGE MAILE VIVAS ([id number]) [facility] ([facility]) [address] [place] [address] Chloride [Moles/Vol] 108 mmol/L High 98-107 [facility] Comment on above: Performed By: #### 2 4323-8 #### AURELIAIBELIMARILIN MONGENOEMI ORTEGA ([id number]) [facility] ([facility]) [address] [place] [address] 63508 CO2 [Moles/Vol] 23 mmol/L Normal 21-32 [facility] Comment on above: Performed By: #### 2 4323-8 #### AURELIAIBELIMARILIN MONGENOEMIMAILE VIVAS (12906) [facility] ([facility]) [address] [place] [address] 74528 Creatinine [Mass/Vol] 1.87 mg/dL High 0.50-1.05 [facility] Comment on above: Performed By: #### 2 4323-8 #### AURELIAIBLIBRADO MARIPOSA VIVAS ([id number]) [facility] ([facility]) [address] [place] [address] 09102 Glomerular filtration rate/1.73 sq M.predicted 27 mL/min/1.73m*2 Low >60 [facility] Comment on above: Result Comment: Calc ulations of estimated GFR are performed using the 2020 CKD-EPI Study Refit equation without the race variable for the IDMS-Traceable creatinine methods. https://jasn.asnjournals.org/content/early/ASN.23197 65454 Performed By: #### 2 4323-8 #### AURELIAIBLIBRADO MONGE MAILE VIVAS (12754) [facility] ([facility]) [address] [place] [address] 80255 Glucose [Mass/Vol] 77 mg/dL Normal 74-99 [facility] Comment on above: Performed By: #### 2 4323-8 #### THELMA DENNISON ([id number]) [facility] ([facility]) [address] [place] [address] 67842 Potassium [Moles/Vol] 3.8 mmol/L Normal 3.5-5.3 [facility] Comment on above: Performed By: #### 2 4323-8 #### THELMA DENNISON ([id number]) [facility] ([facility]) [address] [place] [address] 61991 Protein [Mass/Vol] 5.1 g/dL Low 6.4-8.2 [facility] Comment on above: Performed By: #### 2 4323-8 #### THELMA DENNISON ([id number]) [facility] ([facility]) [address] [place] [address] 59979 Sodium [Moles/Vol] 138 mmol/L Normal 136-145 [facility] Comment on above: Performed By: #### 2 4323-8 #### THELMA DENNISON ([id number]) [facility] ([facility]) [address] [place] [address] 24551 Urea nitrogen [Mass/Vol] 38 mg/dL High 6-23 [facility] Comment on above: Performed By: #### 2 4323-8 #### THELMA DENNISON ([id number]) [facility] ([facility]) [address] [place] [address] 35050 Albumin BCP dye [Mass/Vol] 3.1 g/dL Low 3.4 - 5.0 g/dL [facility] ALP [Catalytic activity/Vol] 47 U/L 33 - 136 U/L [facility] ALT With P-5'-P [Catalytic activity/Vol] 39 U/L 7 - 45 U/L [facility] Comment on above: Patients treated wit h Sulfasalazine may generate falsely decreased results for ALT. Anion gap [Moles/Vol] 11 mmol/L 10 - 2 0 mmol/L [facility] AST With P-5'-P [Catalytic activity/Vol] 45 U/L High 9 - 39 U/L [facility] Bilirubin [Mass/Vol] 0.5 mg/dL 0.0 - 1 .2 mg/dL [facility] Calcium [Mass/Vol] 11.1 mg/dL High 8.6 - 10. 3 mg/dL [facility] Chloride [Moles/Vol] 108 mmol/L High 98 - 10 7 mmol/L [facility] CO2 [Moles/Vol] 23 mmol/L 21 - 32 mmol/L [facility] Creatinine [Mass/Vol] 1.87 mg/dL High 0.50 - 1.05 mg/dL [facility] GFR/1.73 sq M.predicted among non-blacks MDRD (S/P/Bld) [Vol rate/Area] 27 mL/min/{1.73_m2} Low - PINF [facility] Comment on above: Calculations of marisabel mated GFR are performed using the 2020 CKD-EPI Study Refit equation without the race variable for the IDMS-Traceable creatinine methods. https://jasn.asnjournals.org/content/early//ASN.82563 05557 Glucose [Mass/Vol] 77 mg/dL 74 - 99 mg/dL [facility] Interpretation and review of laboratory results Abnormal [facility] Potassium [Moles/Vol] 3.8 mmol/L 3.5 - 5.3 mmol/L [facility] Protein [Mass/Vol] 5.1 g/dL Low 6.4 - 8.2 g/dL [facility] Sodium [Moles/Vol] 138 mmol/L 136 - 145 mmol/L [facility] Urea nitrogen [Mass/Vol] 38 mg/dL High 6 - 23 mg/dL [facility] Albumin BCP dye [Mass/Vol] 3.3 g/dL Low 3.4-5.0 [facility] Comment on above: Performed By: #### 2 4323-8 #### THELMA DENNISON ([id number]) [facility] ([facility]) [address] [place] [address] ALP [Catalytic activity/Vol] 52 U/L Normal 33-136 [facility] Comment on above: Performed By: #### 2 4323-8 #### THELMA DENNISON ([id number]) [facility] ([facility]) [address] [place] [address] 41933 ALT With P-5'-P [Catalytic activity/Vol] 43 U/L Normal 7-45 [facility] Comment on above: Result Comment: Liz ents treated with Sulfasalazine may generate falsely decreased results for ALT. Performed By: #### 2 4323-8 #### THELMA DENNISON ([id number]) [facility] ([facility]) [address] [place] [address] 97244 Anion gap [Moles/Vol] 10 mmol/L Normal 10-20 [facility] Comment on above: Performed By: #### 2 4323-8 #### THELMA DENNISON ([id number]) [facility] ([facility]) [address] [place] [address] 40479 AST With P-5'-P [Catalytic activity/Vol] 48 U/L High 9-39 [facility] Comment on above: Performed By: #### 2 4323-8 #### THELMA DENNISON ([id number]) [facility] ([facility]) [address] [place] [address] 48550 Bilirubin [Mass/Vol] 0.5 mg/dL Normal 0.0-1.2 [facility] Comment on above: Performed By: #### 2 4323-8 #### THELMA DENNISON ([id number]) [facility] ([facility]) [address] [place] [address] 19967 Calcium [Mass/Vol] 11.5 mg/dL High 8.6-10.3 [facility] Comment on above: Performed By: #### 2 4323-8 #### THELMA DENNISON ([id number]) [facility] ([facility]) [address] [place] [address] 95580 Chloride [Moles/Vol] 106 mmol/L Normal 98-107 [facility] Comment on above: Performed By: #### 2 4323-8 #### THELMA DENNISON ([id number]) [facility] ([facility]) [address] [place] [address] CO2 [Moles/Vol] 25 mmol/L Normal 21-32 [facility] Comment on above: Performed By: #### 2 4323-8 #### THELMA DENNISON ([id number]) [facility] ([facility]) [address] [place] [address] 09983 Creatinine [Mass/Vol] 1.95 mg/dL High 0.50-1.05 [facility] Comment on above: Performed By: #### 2 4323-8 #### THELMA DENNISON ([id number]) [facility] ([facility]) [address] [place] [address] 25650 Glomerular filtration rate/1.73 sq M.predicted 26 mL/min/1.73m*2 Low >60 [facility] Comment on above: Result Comment: Calc ulations of estimated GFR are performed using the 2020 CKD-EPI Study Refit equation without the race variable for the IDMS-Traceable creatinine methods. https://jasn.asnjournals.org/content//ASN.59516 87440 Performed By: #### 2 4323-8 #### THELMA DENNISON ([id number]) [facility] ([facility]) [address] [place] [address] 93781 Glucose [Mass/Vol] 83 mg/dL Normal 74-99 [facility] Comment on above: Performed By: #### 2 4323-8 #### THELMA DENNISON ([id number]) [facility] ([facility]) [address] [place] [address] 54195 Potassium [Moles/Vol] 3.8 mmol/L Normal 3.5-5.3 [facility] Comment on above: Performed By: #### 2 4323-8 #### THELMA DENNISON ([id number]) [facility] ([facility]) [address] [place] [address] 38836 Protein [Mass/Vol] 5.4 g/dL Low 6.4-8.2 [facility] Comment on above: Performed By: #### 2 4323-8 #### THELMA DENNISON ([id number]) [facility] ([facility]) [address] [place] [address] 46248 Sodium [Moles/Vol] 137 mmol/L Normal 136-145 [facility] Comment on above: Performed By: #### 2 4323-8 #### THELMA DENNISON ([id number]) [facility] ([facility]) [address] [place] [address] 71793 Urea nitrogen [Mass/Vol] 37 mg/dL High 6-23 [facility] Comment on above: Performed By: #### 2 4323-8 #### THELMA DENNISON ([id number]) [facility] ([facility]) [address] [place] [address] 80692 Albumin BCP dye [Mass/Vol] 3.3 g/dL Low 3.4 - 5.0 g/dL [facility] ALP [Catalytic activity/Vol] 52 U/L 33 - 136 U/L [facility] ALT With P-5'-P [Catalytic activity/Vol] 43 U/L 7 - 45 U/L [facility] Comment on above: Patients treated wit h Sulfasalazine may generate falsely decreased results for ALT. Anion gap [Moles/Vol] 10 mmol/L 10 - 2 0 mmol/L [facility] AST With P-5'-P [Catalytic activity/Vol] 48 U/L High 9 - 39 U/L [facility] Bilirubin [Mass/Vol] 0.5 mg/dL 0.0 - 1 .2 mg/dL [facility] Calcium [Mass/Vol] 11.5 mg/dL High 8.6 - 10. 3 mg/dL [facility] Chloride [Moles/Vol] 106 mmol/L 98 - 10 7 mmol/L [facility] CO2 [Moles/Vol] 25 mmol/L 21 - 32 mmol/L [facility] Creatinine [Mass/Vol] 1.95 mg/dL High 0.50 - 1.05 mg/dL [facility] GFR/1.73 sq M.predicted among non-blacks MDRD (S/P/Bld) [Vol rate/Area] 26 mL/min/{1.73_m2} Low - PINF [facility] Comment on above: Calculations of marisabel mated GFR are performed using the 2020 CKD-EPI Study Refit equation without the race variable for the IDMS-Traceable creatinine methods. https://jasn.asnjournals.org/content//ASN.23688 85003 Glucose [Mass/Vol] 83 mg/dL 74 - 99 mg/dL [facility] Interpretation and review of laboratory results Abnormal [facility] Potassium [Moles/Vol] 3.8 mmol/L 3.5 - 5.3 mmol/L [facility] Protein [Mass/Vol] 5.4 g/dL Low 6.4 - 8.2 g/dL [facility] Sodium [Moles/Vol] 137 mmol/L 136 - 145 mmol/L [facility] Urea nitrogen [Mass/Vol] 37 mg/dL High 6 - 23 mg/dL [facility] Magnesiumon 05-24-2023 Magnesium [Mass/Vol] 1.95 mg/dL Normal 1.60-2.40 [facility] Comment on above: Performed By: #### 1 9123-9 #### THELMA DENNISON ([id number]) [facility] ([facility]) [address] [place] [address] 39554 Magnesium [Mass/Vol] 1.95 mg/dL 1.60 - 2.40 mg/dL [facility] Magnesium [Mass/Vol] 2.03 mg/dL Normal 1.60-2.40 [facility] Comment on above: Performed By: #### 1 9123-9 #### THELMA DENNISON ([id number]) [facility] ([facility]) [address] [place] [address] 20469 Magnesium [Mass/Vol] 2.03 mg/dL 1.60 - 2.40 mg/dL [facility] Magnesium [Mass/Vol]on 05-23 Interpretation and review of laboratory results Normal [facility] Interpretation and review of laboratory results Normal [facility] No Panel Informationon 05-23 [facility] PT Coag (PPP) [Time]on 05-23 INR Coag (PPP) [Relative time] 2.2 High 0.9-1.1 [facility] Comment on above: Performed By: #### 5 902-2 #### THELMA DENNISON ([id number]) [facility] ([facility]) [address] [place] [address] 45230 INR Coag (PPP) [Relative time] 2.2 {INR} High 0.9 - 1.1 [facility] Interpretation and review of laboratory results Abnormal [facility] PT and aPTT panel Coag (PPP) on 05-24-2023 aPTT Coag (PPP) [Time] 36 s Normal 27-38 [facility] Comment on above: Order Comment: The A PTT is no longer used for monitoring Unfractionated Heparin Therapy. For monitoring Heparin Therapy, use the Heparin Assay. Performed By: #### 3 4529-8 #### THELMA DENNISON ([id number]) [facility] ([facility]) [address] [place] [address] 35870 INR Coag (PPP) [Relative time] 2.2 High 0.9-1.1 [facility] Comment on above: Order Comment: The A PTT is no longer used for monitoring Unfractionated Heparin Therapy. For monitoring Heparin Therapy, use the Heparin Assay. Performed By: #### 3 4529-8 #### THELMA DENNISON ([id number]) [facility] ([facility]) [address] [place] [address] 11414 PT Coag (PPP) [Time] 25.0 s High 9.8-12.8 [facility] Comment on above: Order Comment: The A PTT is no longer used for monitoring Unfractionated Heparin Therapy. For monitoring Heparin Therapy, use the Heparin Assay. Performed By: #### 3 4529-8 #### THELMA DENNISON ([id number]) [facility] ([facility]) [address] [place] [address] 81092 aPTT Coag (PPP) [Time] 36 s [facility] INR Coag (PPP) [Relative time] 2.2 {INR} High 0.9 - 1.1 [facility] Interpretation and review of laboratory results Abnormal [facility] PT Coag (PPP) [Time] 25.0 s [facility] The APTT is no longe r used for monitoring Unfractionated Heparin Therapy. For monitoring Heparin Therapy, use the Heparin Assay. [facility] PTH, [place] 05-24-2023 Parathyrin.intact [Mass/Vol] 11.2 pg/mL Low 18.5 - 88.0 pg/mL [facility] Parathyrin.[place] 05-24-19 Parathyrin.intact [Mass/Vol] 11.2 pg/mL Low 18.5-88.0 [facility] Comment on above: Performed By: #### [id number] #### JENNIFER Mirza ([id number]) [facility] ([facility]) [address] [place] [id number] Parathyrin.intact [Mass/Vol] on 05-24-2023 Interpretation and review of laboratory results Abnormal [facility] Protime-INRon 05-24-2023 PT Coag (PPP) [Time] 25.3 s [facility] SST TOPon 05-24-2023 Extra Tube Hold for add-ons. [facility] Comment on above: Auto resulted. [facility] Absolute lymphocyte countOrd ered By: Ankush Noguera on 05-23-2023 Lymphocytes Auto (Unsp spec) [#/Vol] 1.83 10*3/uL 0.83-4.51 [facility] Automated lymphocyte count a s percentage of total leukocytesOrdered By: Ankush Noguera on 05-23-2023 Lymphocytes/100 WBC Auto (Unsp spec) 19.2 % 19-41 [facility] Basic metabolic 2000 panelon 05-23-2023 Anion gap [Moles/Vol] 16 mmol/L 9 - 18 mmol/L [facility] Calcium [Mass/Vol] 12.6 mg/dL High 8.5 - 10. 2 mg/dL [facility] Chloride [Moles/Vol] 100 mmol/L 97 - 10 5 mmol/L [facility] CO2 [Moles/Vol] 18 mmol/L Low 22 - 30 mmol/L [facility] Creatinine [Mass/Vol] 1.98 mg/dL High 0.58 - 0.96 mg/dL [facility] Estimated Glomerular Filtration Rate 25 mL/min/1.73m Low >=60 mL/min/1.73m [facility] Glucose [Mass/Vol] 110 mg/dL High 74 - 99 mg/dL [facility] Potassium [Moles/Vol] 4.7 mmol/L 3.7 - 5.1 mmol/L [facility] Sodium [Moles/Vol] 134 mmol/L Low 136 - 144 mmol/L [facility] Urea nitrogen [Mass/Vol] 35 mg/dL High 7 - 21 mg/dL [facility] Basophil percentageOrdered B y: Ankush Noguear on 05-23-2023 Basophil percentage 50-100 SEEN /hpf 0-5 [facility] Basophils/100 WBC (Bld) 0.8 % 0-1 [facility] Bilirubin [Mass/Vol] 0.40 mg/dL 0.20-1.00 [facility] Comment on above: For patients on eltr ombopag therapy, use of Dimension [place] TBIL is not recommended. Chloride [Moles/Vol] 105 mmol/L 98-107 [facility] Eosinophils/100 WBC (Bld) 9.7 % 0-5 [facility] Glucose [Mass/Vol] 144 mg/dL 74-106 [facility] Comment on above: Fasting Glucose resu lt greater than or equal to 126 mg/dL suggests DIABETES MELLITUS per A.D.A. criteria. Hemoglobin (Bld) [Mass/Vol] 14.5 g/dL 12.0-15.0 [facility] Monocytes/100 WBC (Bld) 9.7 % 0-10 [facility] Neutrophils (Bld) [#/Vol] 5.7 10*3/uL 2.0-7.7 [facility] Neutrophils/100 WBC (Bld) 59.7 % 47-70 [facility] Potassium [Moles/Vol] 4.0 mmol/L 3.5-5.1 [facility] Protein [Mass/Vol] 5.9 g/dL 6.4-8.2 [facility] Sodium [Moles/Vol] 136 mmol/L 136-145 [facility] WBC (Bld) [#/Vol] 9.5 10*3/uL 4.4-11.0 [facility] Bilirubin Test strip Ql (U)O rdered By: Ankush Noguera on 05-23-2023 Bilirubin Ql (U) Negative Negative [facility] Calcium.ionized [Moles/Vol]o n 05-23-2023 Calcium.ionized (Bld) [Mass/Vol] 1.69 mmol/L High 1.08 - 1.30 mmol/L [facility] Calcium.ionized adjusted to pH 7.4 (Bld) [Moles/Vol] 1.69 mmol/L High 1.08 - 1.30 mmol/L [facility] Determination of erythrocyte mean corpuscular volume (MCV)Ordered By: Ankush Noguera on 05-23-2023 MCV (RBC) [Entitic vol] 85.4 fL 81-99 [facility] Erythrocyte distribution wid th ratioOrdered By: Ankush Noguera on 05-23-2023 Erythrocyte distribution width (RBC) [Ratio] 14.2 % 11.6-14.6 [facility] Erythrocyte distribution wid th standard deviationOrdered By: Ankush Noguera on 05-23-2023 Erythrocyte distribution width (RBC) [Entitic vol] 44.1 fL 35.1-43.9 [facility] Hematocrit Auto (Bld) [Volum e fraction]Ordered By: Ankush Noguera on 05-23-2023 Hematocrit (Bld) [Volume fraction] 43.3 % 37-47 [facility] Immature granulocytes/100 WB C Auto (Bld)Ordered By: Ankush Noguera on 05-23-2023 Immature granulocytes/100 WBC (Bld) 0.900 % 0.0-0.9 [facility] Comment on above: IG% - Immature Granu locytes (promyelocytes, myelocytes and metamyelocytes) > 1% indicates that a LEFT SHIFT is Present. Ketones Test strip Ql (U)Ord ered By: Ankush Noguera on 05-23-2023 Ketones Ql (U) Negative Negative [facility] Laboratory - Chemistry and C hemistry - challengeOrdered By: Ankush Noguera on 05-23-2023 Albumin/Globulin [Mass ratio] 1.0 {ratio} 0.9-2.4 [facility] ALP [Catalytic activity/Vol] 76 U/L 45-117 [facility] ALT [Catalytic activity/Vol] 62 U/L 13-56 [facility] CO2 [Moles/Vol] 23.0 mmol/L 21.0-32.0 [facility] Globulin (S) [Mass/Vol] 3.0 g/dL 2.2-4.2 [facility] Urea nitrogen/Creatinine [Mass ratio] 18.9 mg/mg 10-20 [facility] Laboratory - CoagulationOrde red By: Ankush Noguera on 05-23-2023 INR Coag (Bld) [Relative time] 2.1 {INR} [facility] PT Coag (PPP) [Time] 23.0 s 11.7-14.9 [facility] Laboratory - Hematology and Cell countsOrdered By: Ankush Noguera on 05-23-2023 MCH (RBC) [Entitic mass] 28.6 pg 27.0-32.0 [facility] MCHC (RBC) [Mass/Vol] 33.5 g/dL 32-36 [facility] Nucleated RBC/100 WBC (Bld) [Ratio] 0 % 0-5 [facility] Platelet mean volume (Bld) [Entitic vol] 10.9 fL 6.2-12.0 [facility] Platelets (Bld) [#/Vol] 271 10*3/uL 150-450 [facility] MAGNESIUM BLDon 05-23-2023 Magnesium [Mass/Vol] 2.3 mg/dL 1.7 - 2 .3 mg/dL [facility] Mucus LM Ql (Urine sed)Order ed By: Ankush Noguera on 05-23-2023 Mucus Ql (Urine sed) 0 SEEN /hpf [facility] Nitrite Test strip Ql (U)Ord ered By: Ankush Noguera on 05-23-2023 Nitrite Ql (U) Negative Negative [facility] No Panel InformationOrdered By: Ankush Noguera on 05-23-2023 Urine RBC 10-25 SEEN /hpf 0-5 [facility] Ionized Calcium 6.22 mg/dL 4.36-5.20 [facility] Estimated Creatinine Clearance Calc 19.14 ml/min [facility] Estimated GFR (MDRD) Amer 30 mL/min >60 [facility] Comment on above: GFR Calc Estimated GFR (MDRD) Non-Af Amer 25 mL/min >60 [facility] Comment on above: Non- GFR Calc Troponin I High Sensitivity 32 pg/mL 3.0-54.0 [facility] Comment on above: Please Note: New Katerina t Units and Gender Specific Reference Ranges. For more information see Policy Stat Procedure [place] High Sensitivity Troponin (TNIH) and attachments. PHOSPHORUS INORGANICon 05-22 Phosphate [Mass/Vol] 4.1 mg/dL 2.7 - 4 .8 mg/dL [facility] Protein Test strip Ql (U)Ord ered By: Ankush Noguera on 05-23-2023 Protein Ql (U) 15 mg/dl Negative [facility] RBC Auto (Bld) [#/Vol]Ordere d By: Ankush Noguera on 05-23-2023 RBC (Bld) [#/Vol] 5.07 10*6/uL 4.2-5.4 [facility] Serum or plasma calcium scott urement (mass/volume)Ordered By: Ankush Noguera on 05-23-2023 Calcium [Mass/Vol] 11.9 mg/dL 8.5-10.1 [facility] Serum or plasma creatinine m easurement (mass/volume)Ordered By: Ankush Noguera on 05-23-2023 Creatinine [Mass/Vol] 2.06 mg/dL 0.55-1.02 [facility] Comment on above: The validity of the calculated GFR & GFRAA in patients over 70 years has not been determined. Clinical correlation is essential. Serum or plasma urea nitroge n measurement (mass/volume)Ordered By: Ankush Noguera on 05-23-2023 Urea nitrogen [Mass/Vol] 39 mg/dL 7-18 [facility] Squamous epithelial cells de tection in urine sediment by light microscopyOrdered By: Ankush Noguera on 05-23-2023 Epithelial cells.squamous LM Ql (Urine sed) 5-10 SEEN /hpf 5-10 [facility] Thin prep Papanicolaou smear with manual screeningOrdered By: Ankush Noguera on 05-23-2023 Thin prep Papanicolaou smear with manual screening 2.9 g/dL 3.2-5.0 [facility] Thin prep Papanicolaou smear with manual screening 64 U/L 15-37 [facility] Thin prep Papanicolaou smear with manual screening 8 5-15 [facility] UA DIP, URINE (POC)on 2023 BILIRUBIN UA (POCT) Negative Negative [facility] CLARITY UA (POCT) Clear [facility] COLOR UA (POCT) Yellow [facility] GLUCOSE UA (POCT) Negative Negative mg/dL [facility] Hemoglobin Ql (U) Small Abnormal Negative [facility] KETONE UA (POCT) Negative Negative mg/dL [facility] LEUKOCYTES UA (POCT) Small Abnormal Negative [facility] NITRITE UA (POCT) Negative Negative [facility] PH UA (POCT) 5.5 4.5 - 8.0 [facility] Protein Ql (U) Negative Negative mg/dL [facility] SPECIFIC GRAVITY UA (POCT) <=1.005 Abnormal 1.005 - 1.030 [facility] UROBILINOGEN UA (POCT) 0.2 E.U./dL Camelia l E.U./dL [facility] Urine blood detectionOrdered By: Ankush Noguera on 05-23-2023 RBC Ql (U) 25 /ul Negative [facility] Urine clarityOrdered By: Edouard Noguera on 05-23-2023 Clarity (U) Clear Clear [facility] Urine color determinationOrd ered By: Ankush Noguera on 05-23-2023 Color (U) Yellow Yellow [facility] Urine glucose detectionOrder ed By: Ankush Noguera on 05-23-2023 Glucose Ql (U) Normal mg/dl Normal [facility] Urine leukocyte esterase det ection by dipstickOrdered By: Ankush Noguera on 05-23-2023 Leukocyte esterase Test strip Ql (U) 500 /ul Negative [facility] Urine pHOrdered By: Ankush ford on 05-23-2023 pH (U) 6.5 [pH] 5.0 - 8.0 [facility] Urine sediment bacteria coun t by microscopy (number/high power field)Ordered By: Ankush Noguera on 05-23-2023 Bacteria LM.HPF (Urine sed) [#/Area] 0 /[HPF] None Seen [facility] Urine specific gravity measu rementOrdered By: Ankush Noguera on 05-23-2023 Specific gravity (U) [Rel density] 1.010 1.002-1.030 [facility] Urine urobilinogen measureme ntOrdered By: Ankush Nogurea on 05-23-2023 Urobilinogen Ql (U) Normal mg/dl Normal [facility] Absolute lymphocyte countOrd ered By: Juan Alberto Mclcendon on 05-15-2023 Lymphocytes Auto (Unsp spec) [#/Vol] 1.74 10*3/uL 0.83-4.51 [facility] Automated lymphocyte count a s percentage of total leukocytesOrdered By: Juan Alberto Mcclendon on 05-15-2023 Lymphocytes/100 WBC Auto (Unsp spec) 15.8 % 19-41 [facility] Basophil percentageOrdered B y: Juan Alberto Mcclendon on 05-15-2023 Basophils/100 WBC (Bld) 0.6 % 0-1 [facility] Chloride [Moles/Vol] 103 mmol/L 98-107 [facility] Eosinophils/100 WBC (Bld) 6.4 % 0-5 [facility] Glucose [Mass/Vol] 103 mg/dL 74-106 [facility] Comment on above: Fasting Glucose resu lt from 100 to 125 mg/dL suggests IMPAIRED HOMEOSTASIS per A.D.A. criteria. Hemoglobin (Bld) [Mass/Vol] 14.4 g/dL 12.0-15.0 [facility] Monocytes/100 WBC (Bld) 10.7 % 0-10 [facility] Neutrophils (Bld) [#/Vol] 7.2 10*3/uL 2.0-7.7 [facility] Neutrophils/100 WBC (Bld) 65.8 % 47-70 [facility] Potassium [Moles/Vol] 3.6 mmol/L 3.5-5.1 [facility] Sodium [Moles/Vol] 134 mmol/L 136-145 [facility] WBC (Bld) [#/Vol] 11.0 10*3/uL 4.4-11.0 [facility] Determination of erythrocyte mean corpuscular volume (MCV)Ordered By: Juan Alberto Mcclendon on 05-15-2023 MCV (RBC) [Entitic vol] 88.0 fL 81-99 [facility] Erythrocyte distribution wid th ratioOrdered By: Juan Alberto Mcclendon on 05-15-2023 Erythrocyte distribution width (RBC) [Ratio] 14.3 % 11.6-14.6 [facility] Erythrocyte distribution wid th standard deviationOrdered By: Juan Alberto Mcclendon on 05-15-2023 Erythrocyte distribution width (RBC) [Entitic vol] 45.5 fL 35.1-43.9 [facility] Hematocrit Auto (Bld) [Volum e fraction]Ordered By: Juan Alberto Mcclendon on 05-15-2023 Hematocrit (Bld) [Volume fraction] 44.8 % 37-47 [facility] Immature granulocytes/100 WB C Auto (Bld)Ordered By: Juan Alberto Mcclendon on 05-15-2023 Immature granulocytes/100 WBC (Bld) 0.700 % 0.0-0.9 [facility] Comment on above: IG% - Immature Granu locytes (promyelocytes, myelocytes and metamyelocytes) > 1% indicates that a LEFT SHIFT is Present. Laboratory - Chemistry and C hemistry - challengeOrdered By: Juan Alberto Mcclendon on 05-15-2023 CO2 [Moles/Vol] 22.0 mmol/L 21.0-32.0 [facility] Urea nitrogen/Creatinine [Mass ratio] 17.6 mg/mg 10-20 [facility] Laboratory - Hematology and Cell countsOrdered By: Juan Alberto Mcclendon on 05-15-2023 MCH (RBC) [Entitic mass] 28.3 pg 27.0-32.0 [facility] MCHC (RBC) [Mass/Vol] 32.1 g/dL 32-36 [facility] Nucleated RBC/100 WBC (Bld) [Ratio] 0 % 0-5 [facility] Platelet mean volume (Bld) [Entitic vol] 11.8 fL 6.2-12.0 [facility] Platelets (Bld) [#/Vol] 216 10*3/uL 150-450 [facility] No Panel InformationOrdered By: Juan Alberto Mcclendon on 05-15-2023 Estimated Creatinine Clearance Calc 19.41 ml/min [facility] Estimated GFR (MDRD) Amer 30 mL/min >60 [facility] Comment on above: GFR Calc Estimated GFR (MDRD) Non-Af Amer 25 mL/min >60 [facility] Comment on above: Non- GFR Calc RBC Auto (Bld) [#/Vol]Ordere d By: Juan Alberto Mcclendon on 05-15-2023 RBC (Bld) [#/Vol] 5.09 10*6/uL 4.2-5.4 [facility] Serum or plasma calcium scott urement (mass/volume)Ordered By: Juan Alberto Mcclendon on 05-15-2023 Calcium [Mass/Vol] 11.1 mg/dL 8.5-10.1 [facility] Serum or plasma creatinine m easurement (mass/volume)Ordered By: Juan Alberto Mcclenodn on 05-15-2023 Creatinine [Mass/Vol] 2.04 mg/dL 0.55-1.02 [facility] Comment on above: The validity of the calculated GFR & GFRAA in patients over 70 years has not been determined. Clinical correlation is essential. Serum or plasma urea nitroge n measurement (mass/volume)Ordered By: Juan Alberto Mcclendon on 05-15-2023 Urea nitrogen [Mass/Vol] 36 mg/dL 7-18 [facility] Thin prep Papanicolaou smear with manual screeningOrdered By: Juan Alberto Mcclendon on 05-15-2023 Thin prep Papanicolaou smear with manual screening 9 5-15 [facility] Capillary blood internationa l normalized ratio (INR)Ordered By: Basim Velasquez on 2023 INR Coag (BldC) [Relative time] 3.0 [facility] Comment on above: Critical Value > 4.0 Whole blood prothrombin time Ordered By: Basim Velasquez on 2023 PT Coag (Bld) [Time] 32.0 s 11.7-14.9 [facility] No Panel InformationOrdered By: Jennifer Tarango on 04-04-2023 Vitamin D 25-Hydroxy 66.6 ng/mL [facility] Comment on above: Vitamin D 25(OH) Sta tus Range Deficiency <20 ng/mL (50nmol/L) Insufficiency 20 - 30 ng/mL (50 - 75 nmol/L) Sufficiency 30 - 100 ng/mL (75 - 250 nmol/L) Toxicity >100 ng/mL (>250 nmol/L) Serum or plasma calcitriol m easurement (mass/volume)Ordered By: Jennifer Tarango on 04-04-2023 1,25-dihydroxyvitamin D3 [Mass/Vol] 45.7 pg/mL 24.8-81.5 [facility] Comment on above: Performed at: [address] [id number] Director: Yvonne Cook MD, Phone: [phone] Basophil percentageOrdered B y: Basim Velasquez on 03-28-2023 Basophil percentage 2.8 mg/dL 2.5-4.9 [facility] Chloride [Moles/Vol] 106 mmol/L 98-107 [facility] Glucose [Mass/Vol] 94 mg/dL 74-106 [facility] Potassium [Moles/Vol] 4.1 mmol/L 3.5-5.1 [facility] Sodium [Moles/Vol] 137 mmol/L 136-145 [facility] Laboratory - Chemistry and C hemistry - challengeOrdered By: Basim Velasquez on 03-28-2023 CO2 [Moles/Vol] 28.0 mmol/L 21.0-32.0 [facility] Urea nitrogen/Creatinine [Mass ratio] 26.5 mg/mg 10-20 [facility] Laboratory - CoagulationOrde red By: Basim Velasquez on 03-28-2023 INR Coag (Bld) [Relative time] 1.7 {INR} [facility] PT Coag (PPP) [Time] 20.5 s 11.7-14.9 [facility] No Panel InformationOrdered By: Basim Velasquez on 03-28-2023 Estimated GFR (MDRD) Amer 32 mL/min >60 [facility] Comment on above: GFR Calc Estimated GFR (MDRD) Non-Af Amer 26 mL/min >60 [facility] Comment on above: Non- GFR Calc Serum or plasma calcium scott urement (mass/volume)Ordered By: Basim Velasquez on 03-28-2023 Calcium [Mass/Vol] 10.9 mg/dL 8.5-10.1 [facility] Serum or plasma creatinine m easurement (mass/volume)Ordered By: Basim Velasquez on 03-28-2023 Creatinine [Mass/Vol] 1.96 mg/dL 0.55-1.02 [facility] Comment on above: The validity of the calculated GFR & GFRAA in patients over 70 years has not been determined. Clinical correlation is essential. Serum or plasma urea nitroge n measurement (mass/volume)Ordered By: Basim Velasquez on 03-28-2023 Urea nitrogen [Mass/Vol] 52 mg/dL 7-18 [facility] Thin prep Papanicolaou smear with manual screeningOrdered By: Basim Velasquez on 03-28-2023 Thin prep Papanicolaou smear with manual screening 3.5 g/dL 3.2-5.0 [facility] Laboratory - CoagulationOrde red By: Basim Velasquez on 02-24-2023 PT Coag (PPP) [Time] 26.7 s 11.7-14.9 [facility] Whole blood international no rmalized ratio (INR)Ordered By: Basim Velasquez on 02-24-2023 INR Coag (Bld) [Relative time] 2.4 {INR} [facility] Laboratory - CoagulationOrde red By: Basim Velasquez on 02-08-2023 INR Coag (Bld) [Relative time] 3.1 {INR} [facility] Comment on above: Critical Value > 4.0 Whole blood prothrombin time Ordered By: Basim Velasquez on 02-08-2023 PT Coag (Bld) [Time] 33.3 s 11.7-14.9 [facility] Laboratory - CoagulationOrde red By: Basim Velasquez on 12-23-2022 INR Coag (Bld) [Relative time] 2.8 {INR} [facility] Comment on above: Critical Value > 4.0 Whole blood prothrombin time Ordered By: Basim Velasquez on 12-23-2022 PT Coag (Bld) [Time] 30.6 s 11.7-14.9 [facility] XR FOOT GENERAL 3V AP/LAT/OB L RIGHTon [facility] Basophil percentageOrdered B y: Basim Velasquez on 12-08-2022 Basophil percentage 2.5 mg/dL 2.5-4.9 [facility] Chloride [Moles/Vol] 107 mmol/L 98-107 [facility] Glucose [Mass/Vol] 185 mg/dL 74-106 [facility] Comment on above: Fasting Glucose resu lt greater than or equal to 126 mg/dL suggests DIABETES MELLITUS per A.D.A. criteria. Potassium [Moles/Vol] 4.3 mmol/L 3.5-5.1 [facility] Sodium [Moles/Vol] 140 mmol/L 136-145 [facility] INR in Blood by Coagulation assayOrdered By: Basim Velasquez on 12-08-2022 INR Coag (Bld) [Relative time] 3.1 {INR} [facility] Laboratory - Chemistry and C hemistry - challengeOrdered By: Basim Velasquez on 12-08-2022 CO2 [Moles/Vol] 28.0 mmol/L 21.0-32.0 [facility] Urea nitrogen/Creatinine [Mass ratio] 21.9 mg/mg 12-09 [facility] Laboratory - CoagulationOrde red By: Basim Velasquez on 12-08-2022 PT Coag (PPP) [Time] 32.0 s 11.7-14.9 [facility] No Panel InformationOrdered By: Basim Velasquez on 12-08-2022 Estimated GFR (MDRD) Amer 34 mL/min >60 [facility] Comment on above: GFR Calc Estimated GFR (MDRD) Non-Af Amer 28 mL/min >60 [facility] Comment on above: Non- GFR Calc Serum or plasma albumin scott urement (mass/volume)Ordered By: Basim Velasquez on 12-08-2022 Albumin [Mass/Vol] 3.5 g/dL 3.2-5.0 [facility] Serum or plasma calcium scott urement (mass/volume)Ordered By: Basim Velasquez on 12-08-2022 Calcium [Mass/Vol] 9.4 mg/dL 8.5-10.1 [facility] Serum or plasma creatinine m easurement (mass/volume)Ordered By: Basim Velasquez on 12-08-2022 Creatinine [Mass/Vol] 1.83 mg/dL 0.55-1.02 [facility] Comment on above: The validity of the calculated GFR & GFRAA in patients over 70 years has not been determined. Clinical correlation is essential. Serum or plasma urea nitroge n measurement (mass/volume)Ordered By: Basim Velasquez on 12-08-2022 Urea nitrogen [Mass/Vol] 40 mg/dL 7-18 [facility] XR FOOT GENERAL 3V AP/LAT/OB L RIGHTon 12-01-2022 [facility] Basophil percentageOrdered B y: Torsten Vann on 11-24-2022 Bilirubin [Mass/Vol] 0.60 mg/dL 0.20-1.00 [facility] Comment on above: For patients on eltr ombopag therapy, use of Dimension [place] TBIL is not recommended. Protein [Mass/Vol] 7.2 g/dL 6.4-8.2 [facility] Laboratory - Chemistry and C hemistry - challengeOrdered By: Torsten Vann on 11-24-2022 ALP [Catalytic activity/Vol] 103 U/L 45-117 [facility] ALT [Catalytic activity/Vol] 38 U/L 13-56 [facility] Globulin (S) [Mass/Vol] 3.4 g/dL 2.2-4.2 [facility] No Panel InformationOrdered By: Torsten Vann on 11-24-2022 Thyroid Stimulating Hormone (TSH) 0.42 uIU/mL 0.358-3.74 [facility] Vitamin D 25-Hydroxy 49.5 ng/mL [facility] Comment on above: Vitamin D 25(OH) Sta tus Range Deficiency <20 ng/mL (50nmol/L) Insufficiency 20 - 30 ng/mL (50 - 75 nmol/L) Sufficiency 30 - 100 ng/mL (75 - 250 nmol/L) Toxicity >100 ng/mL (>250 nmol/L) Serum or plasma albumin/glob ulin mass ratioOrdered By: Torsten Vann on 11-24-2022 Albumin/Globulin [Mass ratio] 1.1 {ratio} 0.9-2.4 [facility] Thin prep Papanicolaou smear with manual screeningOrdered By: Torsten Vann on 11-24-2022 Thin prep Papanicolaou smear with manual screening 28 U/L 15-37 [facility] Thin prep Papanicolaou smear with manual screening 5 5-15 [facility] XR FOOT GENERAL 3V AP/LAT/OB L RIGHTon 11-08-2022 [facility] XR Foot - right AP and Later al and obliqueon 11-08-2022 IMPRESSION: Acute nondisplaced fracture of the proximal fifth metatarsal shaft. Baster Hand: STEPAN Transcribe Date/Time: Nov 08 2022 11:28A Dictated by : ELIZABETH GEORGE MD This examination was interpreted and the report reviewed and electronically signed by: ELIZABETH GEORGE MD on Nov 08 2022 11:29AM [facility] DIVISION OF RADIOLOGY * * [...] of the vasculature. DIVISION OF RADIOLOGY Provider, [facility] - 11/08/2022 * * *Final Report* * [...] fracture of the proximal fifth metatarsal shaft. Baster Hand: PSCB Transcribe Date/Time: Nov 08 2022 11:28A Dictated by : ELIZABETH GEORGE MD This examination was interpreted and the report reviewed and electronically signed by: ELIZABETH GEORGE MD on Nov 08 2022 11:29AM EST [facility] Radiology Study observation (narrative) [facility] XR Foot - right AP and Later al and obliqueOrdered By: [facility] Provider on 11-08-2022 [facility] XR HIP BILATERAL 5V PEL/AP/L AT EACH HIPon 10-28-2022 IMPRESSION: Mild hip degenerative change bilaterally. Baster Hand: STEPAN Transcribe Date/Time: Oct 28 2022 9:25A [...] erosions. DIVISION OF RADIOLOGY Provider, Camilla Burden [facility] - 10/28/2022 * * *Final Report* [...] IMPRESSION IMPRESSION: Mild hip degenerative change bilaterally. Baster Hand: PSCB Transcribe Date/Time: Oct 28 2022 9:25A Dictated by : JAYME RIDER MD This examination was interpreted and the report reviewed and electronically signed by: JAYME RIDER MD on Oct 28 2022 9:26AM EST [facility] XR HIP BILATERAL 5V PEL/AP/L AT EACH HIPOrdered By: [facility] Provider on 10-28-2022 [facility] Laboratory - CoagulationOrde red By: Basim Velasquez on 10-26-2022 INR Coag (Bld) [Relative time] 2.4 {INR} [facility] Comment on above: Critical Value > 4.0 Whole blood prothrombin time Ordered By: Basim Velasquez on 10-26-2022 PT Coag (Bld) [Time] 25.8 s 11.7-14.9 [facility] XR HIP BILATERAL 5V PEL/AP/L AT EACH HIPon 10-26-2022 Radiology Study observation (narrative) [facility] Laboratory - CoagulationOrde red By: Basim Velasquez on 10-11-2022 INR Coag (Bld) [Relative time] 3.2 {INR} [facility] [facility] Comment on above: Critical Value > 4.0 Whole blood prothrombin time Ordered By: Basim Velasquez on 10-11-2022 PT Coag (Bld) [Time] 34.6 s 11.7-14.9 [facility] Laboratory - CoagulationOrde red By: Basim Velasquez on 09-12-2022 INR Coag (Bld) [Relative time] 2.4 {INR} [facility] Comment on above: Critical Value > 4.0 Whole blood prothrombin time Ordered By: Basim Velasquez on 09-12-2022 PT Coag (Bld) [Time] 25.7 s 11.7-14.9 [facility] INR in Blood by Coagulation assayOrdered By: Basim Velasquez on 08-11-2022 INR Coag (Bld) [Relative time] 2.6 {INR} [facility] Laboratory - CoagulationOrde red By: Basim Velasquez on 08-11-2022 PT Coag (PPP) [Time] 28.3 s 11.7-14.9 [facility] Basophil percentageOrdered B y: Jennifer Tarango on 07-26-2022 Basophil percentage 2.6 mg/dL 2.5-4.9 [facility] Chloride [Moles/Vol] 107 mmol/L 98-107 [facility] Glucose [Mass/Vol] 80 mg/dL 74-106 [facility] Potassium [Moles/Vol] 3.9 mmol/L 3.5-5.1 [facility] Sodium [Moles/Vol] 139 mmol/L 136-145 [facility] Laboratory - Chemistry and C hemistry - challengeOrdered By: Jennifer Tarango on 07-26-2022 CO2 [Moles/Vol] 23.0 mmol/L 21.0-32.0 [facility] Urea nitrogen/Creatinine [Mass ratio] 21.3 mg/mg 10-20 [facility] No Panel InformationOrdered By: Jennifer Tarango on 07-26-2022 Estimated GFR (MDRD) Amer 34 mL/min >60 [facility] Comment on above: GFR Calc Estimated GFR (MDRD) Non-Af Amer 28 mL/min >60 [facility] Comment on above: Non- GFR Calc Serum or plasma albumin scott urement (mass/volume)Ordered By: Jennifer Tarango on 07-26-2022 Albumin [Mass/Vol] 3.8 g/dL 3.2-5.0 [facility] Serum or plasma calcium scott urement (mass/volume)Ordered By: Jennifer Tarango on 07-26-2022 Calcium [Mass/Vol] 9.3 mg/dL 8.5-10.1 [facility] Serum or plasma creatinine m easurement (mass/volume)Ordered By: Jennifer Tarango on 07-26-2022 Creatinine [Mass/Vol] 1.83 mg/dL 0.55-1.02 [facility] Comment on above: The validity of the calculated GFR & GFRAA in patients over 70 years has not been determined. Clinical correlation is essential. Serum or plasma urea nitroge n measurement (mass/volume)Ordered By: Jennifer Tarango on 07-26-2022 Urea nitrogen [Mass/Vol] 39 mg/dL 09-06 [facility] Laboratory - CoagulationOrde red By: Basim Velasquez on 07-08-2022 INR Coag (Bld) [Relative time] 2.1 {INR} [facility] Comment on above: Critical Value > 4.0 Whole blood prothrombin time Ordered By: Basim Velasquez on 07-08-2022 PT Coag (Bld) [Time] 23.5 s 11.7-14.9 [facility] Basophil percentageOrdered B y: Dr. Tarango on 06-07-2022 Basophil percentage 1.5 mg/dL 2.5-4.9 [facility] Chloride [Moles/Vol] 109 mmol/L 98-107 [facility] Glucose [Mass/Vol] 82 mg/dL 74-106 [facility] Potassium [Moles/Vol] 4.1 mmol/L 3.5-5.1 [facility] Sodium [Moles/Vol] 136 mmol/L 136-145 [facility] Laboratory - Chemistry and C hemistry - challengeOrdered By: Dr. Tarango on 06-07-2022 CO2 [Moles/Vol] 18.0 mmol/L 21.0-32.0 [facility] Urea nitrogen/Creatinine [Mass ratio] 16.1 mg/mg 10- [facility] No Panel InformationOrdered By: Dr. Tarango on 06-07-2022 Estimated GFR (MDRD) Amer 40 mL/min >60 [facility] Comment on above: GFR Calc Estimated GFR (MDRD) Non-Af Amer 33 mL/min >60 [facility] Comment on above: Non- GFR Calc Serum or plasma albumin scott urement (mass/volume)Ordered By: Dr. Tarango on 06-07-2022 Albumin [Mass/Vol] 3.7 g/dL 3.2-5.0 [facility] Serum or plasma calcium scott urement (mass/volume)Ordered By: Dr. Tarango on 06-07-2022 Calcium [Mass/Vol] 8.7 mg/dL 8.5-10.1 [facility] Serum or plasma creatinine m easurement (mass/volume)Ordered By: Dr. Tarango on 06-07-2022 Creatinine [Mass/Vol] 1.61 mg/dL 0.55-1.02 [facility] Comment on above: The validity of the calculated GFR & GFRAA in patients over 70 years has not been determined. Clinical correlation is essential. Serum or plasma urea nitroge n measurement (mass/volume)Ordered By: Dr. Tarango on 06-07-2022 Urea nitrogen [Mass/Vol] 26 mg/dL -18 [facility] Basophil percentageOrdered B y: Dr. Tarango on 05-31-2022 Basophil percentage 2.9 mg/dL 2.5-4.9 [facility] Chloride [Moles/Vol] 109 mmol/L 98-107 [facility] Glucose [Mass/Vol] 98 mg/dL 74-106 [facility] Potassium [Moles/Vol] 3.9 mmol/L 3.5-5.1 [facility] Comment on above: Slight Hemolysis, Re sult may be falsely increased. Sodium [Moles/Vol] 139 mmol/L 136-145 [facility] Laboratory - Chemistry and C hemistry - challengeOrdered By: Dr. Tarango on 05-31-2022 CO2 [Moles/Vol] 24.0 mmol/L 21.0-32.0 [facility] Urea nitrogen/Creatinine [Mass ratio] 14.5 mg/mg 10-20 [facility] No Panel InformationOrdered By: Dr. Tarango on 05-31-2022 Estimated GFR (MDRD) Amer 28 mL/min >60 [facility] Comment on above: GFR Calc Estimated GFR (MDRD) Non-Af Amer 23 mL/min >60 [facility] Comment on above: Non- GFR Calc Serum or plasma albumin scott urement (mass/volume)Ordered By: Dr. Tarango on 05-31-2022 Albumin [Mass/Vol] 3.5 g/dL 3.2-5.0 [facility] Serum or plasma calcium scott urement (mass/volume)Ordered By: Dr. Tarango on 05-31-2022 Calcium [Mass/Vol] 9.2 mg/dL 8.5-10.1 [facility] Serum or plasma creatinine m easurement (mass/volume)Ordered By: Dr. Tarango on 05-31-2022 Creatinine [Mass/Vol] 2.20 mg/dL 0.55-1.02 [facility] Comment on above: The validity of the calculated GFR & GFRAA in patients over 70 years has not been determined. Clinical correlation is essential. Serum or plasma urea nitroge n measurement (mass/volume)Ordered By: Dr. Tarango on 05-31-2022 Urea nitrogen [Mass/Vol] 32 mg/dL 7 [facility] Laboratory - CoagulationOrde red By: Dr. Marte on 05-09-2022 INR Coag (Bld) [Relative time] 2.4 {INR} [facility] Comment on above: Critical Value > 4.0 Whole blood prothrombin time Ordered By: Dr. Marte on 05-09-2022 PT Coag (Bld) [Time] 25.9 s 11.7-14.9 [facility] Laboratory - CoagulationOrde red By: Dr. Marte on 03-25-2022 INR Coag (Bld) [Relative time] 2.4 {INR} [facility] Comment on above: Critical Value > 4.0 No Panel Informationon 03-25 INR International Normalized Ratio 2.4 [facility] Whole blood prothrombin time Ordered By: Dr. Marte on 03-25-2022 PT Coag (Bld) [Time] 28.3 s 11.7-14.9 [facility] Laboratory - CoagulationOrde red By: Dr. Marte on 03-10-2022 INR Coag (Bld) [Relative time] 3.3 {INR} [facility] Comment on above: Critical Value > 4.0 Whole blood prothrombin time Ordered By: Dr. Marte on 03-10-2022 PT Coag (Bld) [Time] 37.6 s 11.7-14.9 [facility] Laboratory - CoagulationOrde red By: Dr. Marte on 02-15-2022 INR Coag (Bld) [Relative time] 1.0 {INR} [facility] Comment on above: Critical Value > 4.0 Whole blood prothrombin time Ordered By: Dr. Marte on 02-15-2022 PT Coag (Bld) [Time] 13.0 s 11.7-14.9 [facility] Laboratory - Coagulationon 1 03-30-2021 INR Coag (Bld) [Relative time] 1.7 {INR} [facility] Work Phone: Comment on above: Critical Value > 4.0 Whole blood prothrombin time on 01-27-2022 PT Coag (Bld) [Time] 20.8 s 11.7-14.9 [facility] Work Phone: Basophil percentageOrdered B y: Basim Velasquez on 01-25-2022 Chloride [Moles/Vol] 105 mmol/L 98-107 [facility] Glucose [Mass/Vol] 104 mg/dL 74-106 [facility] Comment on above: Fasting Glucose resu lt from 100 to 125 mg/dL suggests IMPAIRED HOMEOSTASIS per A.D.A. criteria. Potassium [Moles/Vol] 4.1 mmol/L 3.5-5.1 [facility] Sodium [Moles/Vol] 138 mmol/L 136-145 [facility] INR in Blood by Coagulation assayOrdered By: Dr. Marte on 01-25-2022 INR Coag (Bld) [Relative time] 11.9 {INR} [facility] Comment on above: ACRITICAL VALUE VERI FIED. CALLED TO RONNIE HAWKINS ([facility])01/25/22 1337 Omar BabcockRESULTS READ BACK BY SAME. Laboratory - Chemistry and C hemistry - challengeOrdered By: Basim Velasquez on 01-25-2022 CO2 [Moles/Vol] 26.0 mmol/L 21.0-32.0 [facility] Urea nitrogen/Creatinine [Mass ratio] 15.2 mg/mg 10-20 [facility] Laboratory - CoagulationOrde red By: Dr. Marte on 01-25-2022 PT Coag (PPP) [Time] 92.3 s 11.7-14.9 [facility] No Panel InformationOrdered By: Basim Velasquez on 01-25-2022 Estimated GFR (MDRD) Amer 34 mL/min >60 [facility] Comment on above: GFR Calc Estimated GFR (MDRD) Non-Af Amer 28 mL/min >60 [facility] Comment on above: Non- GFR Calc No Panel InformationOrdered By: Dr. Vann on 01-25-2022 Vitamin D 25-Hydroxy 39.0 ng/mL [facility] Comment on above: Vitamin D 25(OH) Sta tus Range Deficiency <20 ng/mL (50nmol/L) Insufficiency 20 - 30 ng/mL (50 - 75 nmol/L) Sufficiency 30 - 100 ng/mL (75 - 250 nmol/L) Toxicity >100 ng/mL (>250 nmol/L) Serum or plasma calcium scott urement (mass/volume)Ordered By: Basim Velasquez on 01-25-2022 Calcium [Mass/Vol] 9.3 mg/dL 8.5-10.1 [facility] Serum or plasma creatinine m easurement (mass/volume)Ordered By: Basim Velasquez on 01-25-2022 Creatinine [Mass/Vol] 1.84 mg/dL 0.55-1.02 [facility] Comment on above: The validity of the calculated GFR & GFRAA in patients over 70 years has not been determined. Clinical correlation is essential. Serum or plasma urea nitroge n measurement (mass/volume)Ordered By: Basim Velasquez on 01-25-2022 Urea nitrogen [Mass/Vol] 28 mg/dL 7- [facility] Thin prep Papanicolaou smear with manual screeningOrdered By: Basim Velasquez on 01-25-2022 Thin prep Papanicolaou smear with manual screening 7 - [facility] Laboratory - CoagulationOrde red By: Dr. Marte on 12-28-2021 INR Coag (Bld) [Relative time] 2.3 {INR} [facility] Comment on above: Critical Value > 4.0 Whole blood prothrombin time Ordered By: Dr. Marte on 12-28-2021 PT Coag (Bld) [Time] 26.4 s 11.7-14.9 [facility] TAE SCREENINGon 12-08-2021 [facility] Culture, urineOrdered By: Dr Alaina Tarango on 11-26-2021 Bacteria identified Cx Nom (U) Escherichia coli [facility] Basophil percentageOrdered B y: Dr. Tarango on 11-24-2021 Basophil percentage 2.3 mg/dL 2.5-4.9 [facility] Chloride [Moles/Vol] 111 mmol/L 98-107 [facility] Glucose [Mass/Vol] 80 mg/dL 74-106 [facility] Potassium [Moles/Vol] 4.5 mmol/L 3.5-5.1 [facility] Sodium [Moles/Vol] 141 mmol/L 136-145 [facility] Laboratory - Chemistry and C hemistry - challengeOrdered By: Dr. Tarango on 11-24-2021 CO2 [Moles/Vol] 22.0 mmol/L 21.0-32.0 [facility] Urea nitrogen/Creatinine [Mass ratio] 18.7 mg/mg 12-09 [facility] No Panel InformationOrdered By: Dr. Tarango on 11-24-2021 Estimated GFR (MDRD) Amer 42 mL/min >60 [facility] Comment on above: GFR Calc Estimated GFR (MDRD) Non-Af Amer 34 mL/min >60 [facility] Comment on above: Non- GFR Calc Serum or plasma albumin scott urement (mass/volume)Ordered By: Dr. Tarango on 11-24-2021 Albumin [Mass/Vol] 3.4 g/dL 3.2-5.0 [facility] Serum or plasma calcium scott urement (mass/volume)Ordered By: Dr. Tarango on 11-24-2021 Calcium [Mass/Vol] 9.3 mg/dL 8.5-10.1 [facility] Serum or plasma creatinine m easurement (mass/volume)Ordered By: Dr. Tarango on 11-24-2021 Creatinine [Mass/Vol] 1.55 mg/dL 0.55-1.02 [facility] Comment on above: The validity of the calculated GFR & GFRAA in patients over 70 years has not been determined. Clinical correlation is essential. Serum or plasma urea nitroge n measurement (mass/volume)Ordered By: Dr. Tarango on 11-24-2021 Urea nitrogen [Mass/Vol] 29 mg/dL 7-18 [facility] Absolute lymphocyte counton 11-18-2021 Lymphocytes Auto (Unsp spec) [#/Vol] 1.02 10*3/uL 0.83-4.51 [facility] Work Phone: Activated partial thrombopla stin time (aPTT) in platelet poor plasma by coagulation aon 11-18-2021 aPTT Coag (PPP) [Time] 80.0 s 24.1-36.2 [facility] Work Phone: Basophil percentageon 2021 Basophils/100 WBC (Bld) 0.2 % 0-1 [facility] Work Phone: Chloride [Moles/Vol] 113 mmol/L 98-107 [facility] Work Phone: Eosinophils/100 WBC (Bld) 0.0 % 0-5 [facility] Work Phone: Glucose [Mass/Vol] 157 mg/dL 74-106 [facility] Work Phone: Comment on above: Fasting Glucose resu lt greater than or equal to 126 mg/dL suggests DIABETES MELLITUS per A.D.A. criteria. Neutrophils (Bld) [#/Vol] 8.5 10*3/uL 2.0-7.7 [facility] Work Phone: Neutrophils/100 WBC (Bld) 82.3 % 47-70 [facility] Work Phone: Potassium [Moles/Vol] 4.0 mmol/L 3.5-5.1 [facility]: Sodium [Moles/Vol] 142 mmol/L 136-145 [facility] Work Phone: WBC (Bld) [#/Vol] 10.3 10*3/uL 4.4-11.0 [facility] Work Phone: Blood erythrocytes count (nu mber/volume)on 11-18-2021 RBC (Bld) [#/Vol] 4.15 10*6/uL 4.2-5.4 [facility] Work Phone: Blood hemoglobin measurement (mass/volume)on 11-18-2021 Hemoglobin (Bld) [Mass/Vol] 12.4 g/dL 12.0-15.0 [facility] Work Phone: Blood lymphocytes/100 leukoc yteson 11-18-2021 Lymphocytes/100 WBC (Bld) 9.9 % 19-41 [facility] Work Phone: Blood monocytes/100 leukocyt eson 11-18-2021 Monocytes/100 WBC (Bld) 7.2 % 0-10 [facility] Work Phone: Blood platelet mean volumeon 11-18-2021 Platelet mean volume (Bld) [Entitic vol] 11.6 fL 6.2-12.0 [facility] Work Phone: Determination of erythrocyte mean corpuscular volume (MCV)on 11-18-2021 MCV (RBC) [Entitic vol] 90.6 fL 81-99 [facility] Work Phone: Hematocrit Auto (Bld) [Volum e fraction]on 11-18-2021 Hematocrit (Bld) [Volume fraction] 37.6 % 37-47 [facility] Work Phone: INR in Blood by Coagulation assayon 11-18-2021 INR Coag (Bld) [Relative time] 2.2 {INR} [facility] Work Phone: Laboratory - Chemistry and C hemistry - challengeon 11-18-2021 CO2 [Moles/Vol] 18.0 mmol/L 21.0-32.0 [facility] Work Phone: Urea nitrogen/Creatinine [Mass ratio] 26.5 mg/mg 10-20 [facility] Work Phone: Laboratory - Coagulationon 0 11-18-2021 PT Coag (PPP) [Time] 24.0 s 11.7-14.9 [facility] Work Phone: Laboratory - Hematology and Cell countson 11-18-2021 Erythrocyte distribution width (RBC) [Entitic vol] 48.8 fL 35.1-43.9 [facility] Work Phone: Erythrocyte distribution width (RBC) [Ratio] 14.6 % 11.6-14.6 [facility] Work Phone: Immature granulocytes/100 WBC (Bld) 0.400 % 0.0-0.9 [facility] Work Phone: Comment on above: IG% - Immature Granu locytes (promyelocytes, myelocytes and metamyelocytes) > 1% indicates that a LEFT SHIFT is Present. MCH (RBC) [Entitic mass] 29.9 pg 27.0-32.0 [facility] Work Phone: Nucleated RBC/100 WBC (Bld) [Ratio] 0 % 0-5 [facility] Work Phone: MCHC Auto (RBC) [Mass/Vol]on 11-18-2021 MCHC (RBC) [Mass/Vol] 33.0 g/dL 32-36 [facility] Work Phone: No Panel Informationon 11-18 Estimated Creatinine Clearance Calc 22.09 ml/min [facility] Work Phone: Estimated GFR (MDRD) Amer 38 mL/min >60 [facility] Work Phone: Comment on above: GFR Calc Estimated GFR (MDRD) Non-Af Amer 32 mL/min >60 [facility] Work Phone: Comment on above: Non- GFR Calc Platelets bldon 11-18-2021 Platelets (Bld) [#/Vol] 190 10*3/uL 150-450 [facility] Work Phone: Serum or plasma calcium scott urement (mass/volume)on 11-18-2021 Calcium [Mass/Vol] 7.9 mg/dL 8.5-10.1 [facility] Work Phone: Serum or plasma creatinine m easurement (mass/volume)on 11-18-2021 Creatinine [Mass/Vol] 1.66 mg/dL 0.55-1.02 [facility] Work Phone: Comment on above: The validity of the calculated GFR & GFRAA in patients over 70 years has not been determined. Clinical correlation is essential. Serum or plasma urea nitroge n measurement (mass/volume)on 11-18-2021 Urea nitrogen [Mass/Vol] 44 mg/dL 7-18 [facility] Work Phone: Thin prep Papanicolaou smear with manual screeningon 11-18-2021 Thin prep Papanicolaou smear with manual screening 11 5-15 [facility] Work Phone: Basophil percentageon 2021 Basophil percentage >100 SEEN /hpf 0-5 [facility] Work Phone: Lactate [Moles/Vol] 1.0 mmol/L 0.4-2.0 [facility] Work Phone: Bilirubin Test strip Ql (U)o n 11-17-2021 Bilirubin Ql (U) Negative Negative [facility] Work Phone: Ketones Test strip Ql (U)on 11-17-2021 Ketones Ql (U) 15 mg/dl Negative [facility] Work Phone: Mucus LM Ql (Urine sed)on Mucus Ql (Urine sed) 0 SEEN /hpf [facility] Work Phone: Nitrite Test strip Ql (U)on 11-17-2021 Nitrite Ql (U) Negative Negative [facility] Work Phone: No Panel Informationon 11-17 Troponin I High Sensitivity 482 pg/mL 3.0-54.0 [facility] Work Phone: Comment on above: Critical Result(s) C alled at: 10:36:40 11/17/2021 by: Jarett Burk RN (ICU). Results read back by same. Please Note: New Test Units and Gender Specific Reference Ranges. For more information see Policy Stat Procedure [place] High Sensitivity Troponin (TNIH) and attachments. Protein Test strip Ql (U)on 11-17-2021 Protein Ql (U) 15 mg/dl Negative [facility] Work Phone: Squamous epithelial cells de tection in urine sediment by light microscopyon 11-17-2021 Epithelial cells.squamous LM Ql (Urine sed) 0-5 SEEN /hpf 5-10 [facility] Work Phone: Urine blood detectionon 10-22 RBC Ql (U) 10 /ul Negative [facility] Work Phone: RBC Ql (U) 0-5 SEEN /hpf 0-5 [facility] Work Phone: Urine clarityon 11-17-2021 Clarity (U) Sl. Cloudy Clear [facility] Work Phone: Urine color determinationon 11-17-2021 Color (U) Yellow Yellow [facility] Work Phone: Urine glucose detectionon Glucose Ql (U) Normal mg/dl Normal [facility] Work Phone: Urine leukocyte esterase det ection by dipstickon 11-17-2021 Leukocyte esterase Test strip Ql (U) 500 /ul Negative [facility] Work Phone: Urine pHon 11-17-2021 pH (U) 5.0 [pH] 5.0 - 8.0 [facility] Work Phone: Urine sediment bacteria coun t by microscopy (number/high power field)on 11-17-2021 Bacteria LM.HPF (Urine sed) [#/Area] RARE /hpf None Seen [facility] Work Phone: Urine specific gravity measu rementon 11-17-2021 Specific gravity (U) [Rel density] 1.015 1.002-1.030 [facility] Work Phone: Urobilinogen Auto test strip Ql (U)on 11-17-2021 Urobilinogen Ql (U) Normal mg/dl Normal [facility] Work Phone: Absolute lymphocyte counton 11-16-2021 Lymphocytes Auto (Unsp spec) [#/Vol] 3.63 10*3/uL 0.83-4.51 [facility] Work Phone: Basophil percentageon 2021 Basophils/100 WBC (Bld) 0.9 % 0-1 [facility] Work Phone: Bilirubin [Mass/Vol] 1.00 mg/dL 0.20-1.00 [facility] Work Phone: Comment on above: For patients on eltr ombopag therapy, use of Dimension [place] TBIL is not recommended. Chloride [Moles/Vol] 107 mmol/L 98-107 [facility] Work Phone: Eosinophils/100 WBC (Bld) 2.2 % 0-5 [facility] Work Phone: Glucose [Mass/Vol] 94 mg/dL 74-106 [facility] Work Phone: Neutrophils (Bld) [#/Vol] 6.3 10*3/uL 2.0-7.7 [facility] Work Phone: Neutrophils/100 WBC (Bld) 51.5 % 47-70 [facility] Work Phone: Potassium [Moles/Vol] 4.6 mmol/L 3.5-5.1 [facility] Work Phone: Protein [Mass/Vol] 6.4 g/dL 6.4-8.2 [facility] Work Phone: Sodium [Moles/Vol] 140 mmol/L 136-145 [facility] Work Phone: WBC (Bld) [#/Vol] 12.3 10*3/uL 4.4-11.0 [facility] Work Phone: Blood erythrocytes count (nu mber/volume)on 11-16-2021 RBC (Bld) [#/Vol] 5.36 10*6/uL 4.2-5.4 [facility] Work Phone: Blood hemoglobin measurement (mass/volume)on 11-16-2021 Hemoglobin (Bld) [Mass/Vol] 16.4 g/dL 12.0-15.0 [facility] Work Phone: Blood lymphocytes/100 leukoc yteson 11-16-2021 Lymphocytes/100 WBC (Bld) 29.6 % 19-41 [facility] Work Phone: Blood manual differential co mment interpretation (narrative result)on 11-16-2021 Manual differential comment Rafael (Bld) [Interp] SEE COMMENT [facility] Work Phone: Comment on above: MONOCYTOSIS NOTED Blood monocytes/100 leukocyt eson 11-16-2021 Monocytes/100 WBC (Bld) 14.8 % 0-10 [facility] Work Phone: Blood platelet adequacy dete ction by light microscopyon 11-16-2021 Platelets LM Ql (Bld) ADEQUATE ADEQ [facility] Work Phone: Blood platelet mean volumeon 11-16-2021 Platelet mean volume (Bld) [Entitic vol] 11.8 fL 6.2-12.0 [facility] Work Phone: Determination of erythrocyte mean corpuscular volume (MCV)on 11-16-2021 MCV (RBC) [Entitic vol] 92.7 fL 81-99 [facility] Work Phone: Hematocrit Auto (Bld) [Volum e fraction]on 11-16-2021 Hematocrit (Bld) [Volume fraction] 49.7 % 37-47 [facility] Work Phone: INR in Blood by Coagulation assayon 11-16-2021 INR Coag (Bld) [Relative time] 1.5 {INR} [facility] Work Phone: Laboratory - Chemistry and C hemistry - challengeon 11-16-2021 ALP [Catalytic activity/Vol] 89 U/L 45-117 [facility] Work Phone: ALT [Catalytic activity/Vol] 25 U/L 13-56 [facility] Work Phone: CO2 [Moles/Vol] 23.0 mmol/L 21.0-32.0 [facility] Work Phone: Globulin (S) [Mass/Vol] 3.3 g/dL 2.2-4.2 [facility] Work Phone: Urea nitrogen/Creatinine [Mass ratio] 14.1 mg/mg 10-20 [facility] Work Phone: [phone] Laboratory - Coagulationon 0 11-16-2021 PT Coag (PPP) [Time] 17.8 s 11.7-14.9 [facility] Work Phone: Laboratory - Hematology and Cell countson 11-16-2021 Anisocytosis Ql (Bld) RARE [facility] Work Phone: [phone] Erythrocyte distribution width (RBC) [Entitic vol] 51.6 fL 35.1-43.9 [facility] Work Phone: [phone] Erythrocyte distribution width (RBC) [Ratio] 15.1 % 11.6-14.6 [facility] Work Phone: [phone] Immature granulocytes/100 WBC (Bld) 1.000 % 0.0-0.9 [facility] Work Phone: [phone] Comment on above: IG% - Immature Granu locytes (promyelocytes, myelocytes and metamyelocytes) > 1% indicates that a LEFT SHIFT is Present. MCH (RBC) [Entitic mass] 30.6 pg 27.0-32.0 [facility] Work Phone: [phone] Nucleated RBC/100 WBC (Bld) [Ratio] 0 % 0-5 [facility] Work Phone: MCHC Auto (RBC) [Mass/Vol]on 11-16-2021 MCHC (RBC) [Mass/Vol] 33.0 g/dL 32-36 [facility] Work Phone: Macrocytes detectionon 11-16 Macrocytes Ql (Bld) RARE [facility] Work Phone: No Panel Informationon 11-16 Estimated Creatinine Clearance Calc 13.63 ml/min [facility] Work Phone: Estimated GFR (MDRD) Amer 22 mL/min >60 [facility] Work Phone: Comment on above: GFR Calc Estimated GFR (MDRD) Non-Af Amer 18 mL/min >60 [facility] Work Phone: Comment on above: Non- GFR Calc Troponin I High Sensitivity 619 pg/mL 3.0-54.0 [facility] Work Phone: Comment on above: Critical Result(s) C alled at: 23:23:33 11/16/2021 by: BALDO BARRETO TO DONALD STOKES. Results read back by same. Please Note: New Test Units and Gender Specific Reference Ranges. For more information see Policy Stat Procedure [place] High Sensitivity Troponin (TNIH) and attachments. Platelets bldon 11-16-2021 Platelets (Bld) [#/Vol] 220 10*3/uL 150-450 [facility] Work Phone: RBC morphologyon 11-16-2021 RBC morphology finding Nom (Bld) N CHROM NORMAL NORM C&C [facility] Work Phone: Review by pathologiston 10-22 Pathologist review Rafael (Unsp spec) [Interp] June foll [facility] Work Phone: Pathologist review Rafael (Unsp spec) [Interp] Reviewed [facility] Work Phone: Comment on above: Previous reported re sult: June rubi Edited by: RGOOD on 11/17/21:1214Leukocytosis. PolycythemiaClinical correlation necessary.Alber Mccracken M.D. 11/17/21 AMENDED REPORT 11/17/21 1214 PATH REV previously reported as: June rubi Serum or plasma albumin scott urement (mass/volume)on 11-16-2021 Albumin [Mass/Vol] 3.1 g/dL 3.2-5.0 [facility] Work Phone: Serum or plasma albumin/glob ulin mass ratioon 11-16-2021 Albumin/Globulin [Mass ratio] 0.9 {ratio} 0.9-2.4 [facility] Work Phone: Serum or plasma calcium scott urement (mass/volume)on 11-16-2021 Calcium [Mass/Vol] 9.9 mg/dL 8.5-10.1 [facility] Work Phone: Serum or plasma creatinine m easurement (mass/volume)on 11-16-2021 Creatinine [Mass/Vol] 2.69 mg/dL 0.55-1.02 [facility] Work Phone: Comment on above: The validity of the calculated GFR & GFRAA in patients over 70 years has not been determined. Clinical correlation is essential. Serum or plasma urea nitroge n measurement (mass/volume)on 11-16-2021 Urea nitrogen [Mass/Vol] 38 mg/dL 7-18 [facility] Work Phone: Thin prep Papanicolaou smear with manual screeningon 11-16-2021 Thin prep Papanicolaou smear with manual screening 29 U/L 15-37 [facility] Work Phone: Thin prep Papanicolaou smear with manual screening 10 5-15 [facility] Work Phone: Laboratory - Coagulationon 0 11-02-2021 INR Coag (Bld) [Relative time] 2.6 {INR} [facility] Work Phone: Comment on above: Critical Value > 4.0 Whole blood prothrombin time on 11-02-2021 PT Coag (Bld) [Time] 30.3 s 11.7-14.9 [facility] Work Phone: INR in Blood by Coagulation assayon 09-28-2021 INR Coag (Bld) [Relative time] 2.1 {INR} [facility] Work Phone: Laboratory - Coagulationon 0 09-28-2021 PT Coag (PPP) [Time] 23.2 s 11.7-14.9 [facility] Work Phone: Laboratory - Coagulationon 0 08-30-2021 INR Coag (Bld) [Relative time] 2.2 {INR} [facility] Work Phone: Comment on above: Critical Value > 4.0 Whole blood prothrombin time on 08-30-2021 PT Coag (Bld) [Time] 26.3 s 11.7-14.9 [facility] Work Phone: Laboratory - Coagulationon 0 07-26-2021 INR Coag (Bld) [Relative time] 2.7 {INR} [facility] Work Phone: Comment on above: Critical Value > 4.0 Whole blood prothrombin time on 07-26-2021 PT Coag (Bld) [Time] 30.6 s 11.7-14.9 [facility] Work Phone: Laboratory - Coagulationon 0 06-25-2021 INR Coag (Bld) [Relative time] 2.2 {INR} [facility] Work Phone: Comment on above: Critical Value > 4.0 Whole blood prothrombin time on 06-25-2021 PT Coag (Bld) [Time] 26.3 s 11.7-14.9 [facility] Work Phone: Laboratory - Coagulationon 0 05-27-2021 INR Coag (Bld) [Relative time] 2.7 {INR} [facility] Work Phone: Comment on above: Critical Value > 4.0 Whole blood prothrombin time on 05-27-2021 PT Coag (Bld) [Time] 31.5 s 11.7-14.9 [facility] Work Phone: Laboratory - Coagulationon 0 04-29-2021 INR Coag (Bld) [Relative time] 2.3 {INR} [facility] Work Phone: Comment on above: Critical Value > 4.0 Whole blood prothrombin time on 04-29-2021 PT Coag (Bld) [Time] 27.2 s 11.7-14.9 [facility] Work Phone: Laboratory - Coagulationon 0 03-31-2021 INR Coag (Bld) [Relative time] 2.4 {INR} [facility] Work Phone: Comment on above: Critical Value > 4.0 Whole blood prothrombin time on 03-31-2021 PT Coag (Bld) [Time] 27.6 s 11.9-14.4 [facility] Work Phone: Laboratory - Coagulationon 0 03-02-2021 INR Coag (Bld) [Relative time] 2.0 {INR} [facility] Work Phone: Comment on above: Critical Value > 4.0 Whole blood prothrombin time on 03-02-2021 PT Coag (Bld) [Time] 23.6 s 11.9-14.4 [facility] Work Phone: Laboratory - Coagulationon 1 04-04-2020 INR Coag (Bld) [Relative time] 2.0 {INR} [facility] Work Phone: Comment on above: Critical Value > 4.0 Whole blood prothrombin time on 02-01-2021 PT Coag (Bld) [Time] 23.0 s 11.9-14.4 [facility] Work Phone: CBCon 05-08-2020 Erythrocyte distribution width (RBC) [Ratio] 15.7 % High 11.5 - 14.5 [facility] Comment on above: Performed By: #### C BC #### [address] [id number] Hematocrit (Bld) [Volume fraction] 29.4 % Low 36.0 - 46.0 [facility] Comment on above: Performed By: #### C BC #### [address] [id number] Hemoglobin (Bld) [Mass/Vol] 9.5 g/dL Low 12.0 - 16.0 [facility] Comment on above: Performed By: #### C BC #### [address] [id number] MCHC (RBC) [Mass/Vol] 32.3 g/dL Normal 32.0 - 36.0 [facility] Comment on above: Performed By: #### C BC #### [address] [id number] MCV (RBC) [Entitic vol] 92 fL Normal 80 - 100 [facility] Comment on above: Performed By: #### C BC #### [address] [id number] Platelets (Bld) [#/Vol] 292 10*3/uL Normal 150 - 450 [facility] Comment on above: Performed By: #### C BC #### [address] [id number] RBC (Bld) [#/Vol] 3.21 x10E12/L Low 4.00 - 5.20 [facility] Comment on above: Performed By: #### C BC #### [address] [id number] WBC (Bld) [#/Vol] 16.2 10*3/uL High 4.4 - 11.3 [facility] Comment on above: Performed By: #### C BC #### [address] [id number] COMPREHENSIVE PANELon 2020 Albumin [Mass/Vol] 2.8 g/dL Low 3.4 - 5.0 [facility] Comment on above: Performed By: #### C A #### [address] [id number] ALP [Catalytic activity/Vol] 85 U/L Normal 33 - 136 [facility] Comment on above: Performed By: #### C A #### [address] [id number] ALT [Catalytic activity/Vol] 28 U/L Normal 7 - 45 [facility] Comment on above: Result Comment: Liz ents treated with Sulfasalazine may generate falsely decreased results for ALT. Performed By: #### C A #### [address] [id number] Anion gap [Moles/Vol] 13 mmol/L Normal 10 - 20 [facility] Comment on above: Performed By: #### C A #### [address] [id number] AST [Catalytic activity/Vol] 17 U/L Normal 9 - 39 [facility] Comment on above: Performed By: #### C A #### [address] [id number] Bilirubin [Mass/Vol] 0.8 mg/dL Normal 0.0 - 1.2 [facility] Comment on above: Performed By: #### C A #### [address] [id number] Calcium [Mass/Vol] 9.0 mg/dL Normal 8.6 - 10.3 [facility] Comment on above: Performed By: #### C A #### [address] [id number] Chloride [Moles/Vol] 101 mmol/L Normal 98 - 107 [facility] Comment on above: Performed By: #### C A #### [address] [id number] Creatinine [Mass/Vol] 1.87 mg/dL High 0.50 - 1.05 [facility] Comment on above: Performed By: #### C A #### [address] [id number] GFR- AM. 31 mL/min/1.73m2 Abnormal >60 [facility] Comment on above: Result Comment: CALC ULATIONS OF ESTIMATED GFR ARE PERFORMED USING THE MDRD STUDY EQUATION FOR THE IDMS-TRACEABLE CREATININE METHODS. CLIN CHEM 2007;53:766-72 Performed By: #### C A #### [address] [id number] GFR-NON AM. 26 mL/min/1.73m2 Abnormal >60 [facility] Comment on above: Performed By: #### C A #### [address] [id number] Glucose [Mass/Vol] 92 mg/dL Normal 74 - 99 [facility] Comment on above: Performed By: #### C A #### [address] [id number] HCO3 (Bld) [Moles/Vol] 30 mmol/L Normal 21 - 32 [facility] Comment on above: Performed By: #### C A #### [address] [id number] Potassium [Moles/Vol] 4.0 mmol/L Normal 3.5 - 5.3 [facility] Comment on above: Performed By: #### C A #### [address] [id number] Protein [Mass/Vol] 4.8 g/dL Low 6.4 - 8.2 [facility] Comment on above: Performed By: #### C A #### [address] [id number] Sodium [Moles/Vol] 140 mmol/L Normal 136 - 145 [facility] Comment on above: Performed By: #### C A #### [address] [id number] Urea nitrogen [Mass/Vol] 50 mg/dL High 6 - 23 [facility] Comment on above: Performed By: #### C A #### [address] [id number] Daily Progress Note-Endocrin litzy 05-08-2020 Daily Progress [...] reviewed Objective Data: Objective Information: T PRBPSpO2 Value36.70841463/9499% Date/Time05/08 14: 14: 14: 14: 14:14 Range(35.8C - 37.6C ) (71 - 80 ) (18 - 20 ) (143 - 174 )/ (86 - 99 ) (95% - 99% ) Highest temp of 37.6 C was recorded at 05/08 7:55 Pain reported at 05/08 9:31: 0 = None ---- Intake and Output ----- Mn/Dy/Year TimeIntakeOutputNet May 08, 2020 2:00 [id number] May 08, 2020 6:00 [id number] May 07, 2020 10:00 [id number] The Intake and Output Totals for the last 24 hours are: IntakeOutputNet [id number] Physical Exam by System: Constitutional: Well developed, [...] laboratory results: Comprehensive Metabolic Panel Trending View [id number] 05:22:00 07-May-2020 05:42:00 Glucose, Serum92 86 NA140 136 K4.0 4.0 CL101 99 Bicarbonate, Serum30 27 Anion Gap, Serum13 14 BUN50 H 55 H CREAT1.87 H 1.95 H GFR-Non [id number] A 25 A GFR- Sxjqdhrd34 A 30 A Calcium, Serum9.0 9.0 ALB2.8 [...] Updated: 08-May-2020 16:01 by Alexander Gregory) Normal [facility] Daily Progress Note-General Internal Medicineon 05-08-2020 Daily Progress Note-General Internal Medicine Service: General Internal Medicine Subjective Data: LINDA PERALTA is a 75 year old Female who is Hospital Day # 7. And examined, denies any fever, chills, chest pain, shortness of breath. Feels much improved. Rest of the ROS is negative. Objective Data: Objective Information: T PRBPSpO2 Value37.78004001/9699% Date/Time05/08 7: 7: 7: 7: 7:55 Range(35.8C - 37.6C ) (71 - 82 ) (18 - 20 ) (131 - 174 )/ (86 - 99 ) (95% - 99% ) Highest temp of 37.6 C was recorded at 05/08 7:55 Pain reported at 05/08 9:31: 0 = None ---- Intake and Output ----- Mn/Dy/Year TimeIntakeOutputNet May 08, 2020 6:00 [id number] May 07, 2020 10:00 [id number] May 07, 2020 2:00 [id number] The Intake and Output Totals for the last 24 hours are: IntakeOutputNet [id number] Physical Exam by System: Constitutional: Well developed, [...] Updated: 08-May-2020 11:38 by Baldo South) Normal [facility] Daily Progress Note-Infectio us Diseaseon 05-08-2020 Daily Progress Note-Infectious Disease Service: Infectious Disease History of Present Illness: History Present Illness: HPI: Possible aspiration pneumonia Recent UTI with Citrobacter No fevers chills sweats minimal cold No shortness of breath cough no diarrhea Subjective Data: LNIDA PERALTA is a 75 year old Female who is Hospital Day # 7. Objective Data: Objective Information: T PRBPSpO2 Value36.78665318/9499% Date/Time05/08 14: 14: 14: 14: 14:14 Range(35.8C - 37.6C ) (71 - 80 ) (18 - 20 ) (143 - 174 )/ (86 - 99 ) (95% - 99% ) Highest temp of 37.6 C was recorded at 05/08 7:55 Pain reported at 05/08 9:31: 0 = None ---- Intake and Output ----- Mn/Dy/Year TimeIntakeOutputNet May 08, 2020 2:00 [id number] May 08, 2020 6:00 [id number] May 07, 2020 10:00 [id number] The Intake and Output Totals for the last 24 hours are: IntakeOutputNet [id number] T PRBPSpO2 Value36.96145404/9499% Date/Time05/08 14: 14: 14: 14: 14:14 Range(35.8C [...] RA Area A4C: 16.4 cm2 RA [employer] A4C: 5.0 cm M-MODE MEASUREMENTS: Normal Ranges: [...] 1.2 m/s (0.6-0.9m/s) PV Max P.2 mmHg [id number] Tremayne Mcleod MD Electronically signed on 05/02/2020 [...] Limitations Assessment: Aspiration pneumonia UTI Electronic Signatures: Albreto Allred) (Signed 08-May-2020 14:34) Authored: Service, History of Present Illness, Subjective Data, Objective Data, Assessment and Plan, Note Completion Last Updated: 08-May-2020 14:34 by Alberto Allerd) [facility] Daily Progress Note-Nephrolo gyon 05-08-2020 Daily Progress Note-Nephrology Service: Nephrology Subjective Data: LINDA PERALTA is a 75 year old Female who is Hospital Day # 7. renal function improving, pt feeling better. Objective Data: Objective Information: T PRBPSpO2 Value37.60580577/9699% Date/Time05/08 7: 7: 7: 7: 7:55 Range(35.8C - 37.6C ) (71 - 82 ) (18 - 20 ) (131 - 174 )/ (86 - 99 ) (95% - 99% ) Highest temp of 37.6 C was recorded at 05/08 7:55 Pain reported at 05/08 9:31: 0 = None ---- Intake and Output ----- [facility]Dy[facility] May 08, 2020 6:00 [id number] May 07, 2020 10:00 [id number] May 07, 2020 2:00 [id number] The Intake and Output Totals for the last 24 hours are: IntakeOutputNet [id number] Constitutional: Alert, in no acute distress HEENT: [...] partial nephrectomy, DVT/PE who was initially at [place] for AMS, hypercalcemia and hypotension now transferred here. 1. 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 Objective Data: Objective Information: T PRBPSpO2 Value36.48758988/9499% Date/Time05/08 14: 14: 14: 14: 14:14 Range(35.8C - 37.6C ) (71 - 80 ) (18 - 20 ) (143 - 174 )/ (86 - 99 ) (95% - 99% ) Highest temp of 37.6 C was recorded at 05/08 7:55 Pain reported at 05/08 9:31: 0 = None ---- Intake and Output ----- Mn/Dy/Year TimeIntakeOutputNet May 08, 2020 2:00 [id number] May 08, 2020 6:00 [id number] May 07, 2020 10:00 [id number] The Intake and Output Totals for the last 24 hours are: IntakeOutputNet [id number] Recent Lab Results: Results: CBC: 05/08/2020 05:22 [...] Last Updated: 08-May-2020 16:22 by Alvin Sawyer) [facility] Order Reconciliationon 05-08 Order Reconciliation Page 1 [...] 1 spray(s) Each Nostril DailyNotes from Pharmacy[facility] 02-May-2020 02:08 Fluticasone 50 microgram/ Nasal [...] Injectable DOSE = 0.5 mL IntraVenous Push OnceCa.868795 mL/Kg/DOSE x 74.5 Kg = 0.5 mL/Dose [...] be shared with your follow-up providers (doctor, engine watchman, physical therapist, etc.). Guidelines for a Healthy [...] be shared with your follow-up providers (doctor, engine watchman, physical therapist, etc.). dupilumab 300 milligram(s) subcutaneous [...] 1 tab(s) orally once a day Normal [facility] CBCon 05-07-2020 Erythrocyte distribution width (RBC) [Ratio] 15.5 % High 11.5 - 14.5 [facility] Comment on above: Performed By: #### C BC ####[facility] [place], [place] [id number] Hematocrit (Bld) [Volume fraction] 30.4 % Low 36.0 - 46.0 [facility] Comment on above: Performed By: #### C BC ####[facility] [place], [place] [id number] Hemoglobin (Bld) [Mass/Vol] 9.8 g/dL Low 12.0 - 16.0 [facility] Comment on above: Performed By: #### C BC ####[facility] [place], [place] [id number] MCHC (RBC) [Mass/Vol] 32.2 g/dL Normal 32.0 - 36.0 [facility] Comment on above: Performed By: #### C BC ####[facility] [place], [place] [id number] MCV (RBC) [Entitic vol] 92 fL Normal 80 - 100 [facility] Comment on above: Performed By: #### C BC ####[facility] [place], [place] [id number] Platelets (Bld) [#/Vol] 279 10*3/uL Normal 150 - 450 [facility] Comment on above: Performed By: #### C BC ####[facility] [place], [place] [phone] RBC (Bld) [#/Vol] 3.31 x10E12/L Low 4.00 - 5.20 [facility] Comment on above: Performed By: #### C BC ####[facility] [place], [place] [id number] WBC (Bld) [#/Vol] 18.5 10*3/uL High 4.4 - 11.3 [facility] Comment on above: Performed By: #### C BC ####[facility] [place], [place] [phone] COMPREHENSIVE PANELon 2020 Albumin [Mass/Vol] 2.9 g/dL Low 3.4 - 5.0 [facility] Comment on above: Performed By: #### C MP #### [facility] [address] [place], [place] [id number] ALP [Catalytic activity/Vol] 80 U/L Normal 33 - 136 [facility] Comment on above: Performed By: #### C MP #### [address] [id number] ALT [Catalytic activity/Vol] 31 U/L Normal 7 - 45 [facility] Comment on above: Result Comment: Liz ents treated with Sulfasalazine may generate falsely decreased results for ALT. Performed By: #### C MP #### [address] [id number] Anion gap [Moles/Vol] 14 mmol/L Normal 10 - 20 [facility] Comment on above: Performed By: #### C MP #### [address] [id number] AST [Catalytic activity/Vol] 20 U/L Normal 9 - 39 [facility] Comment on above: Performed By: #### C MP #### [address] [id number] Bilirubin [Mass/Vol] 0.9 mg/dL Normal 0.0 - 1.2 [facility] Comment on above: Performed By: #### C MP #### [address] [id number] Calcium [Mass/Vol] 9.0 mg/dL Normal 8.6 - 10.3 [facility] Comment on above: Performed By: #### C MP #### [address] [id number] Chloride [Moles/Vol] 99 mmol/L Normal 98 - 107 [facility] Comment on above: Performed By: #### C MP #### [address] [id number] Creatinine [Mass/Vol] 1.95 mg/dL High 0.50 - 1.05 [facility] Comment on above: Performed By: #### C MP #### [address] [id number] GFR- AM. 30 mL/min/1.73m2 Abnormal >60 [facility] Comment on above: Result Comment: CALC ULATIONS OF ESTIMATED GFR ARE PERFORMED USING THE MDRD STUDY EQUATION FOR THE IDMS-TRACEABLE CREATININE METHODS. CLIN CHEM 2007;53:766-72 Performed By: #### C MP #### [address] [id number] GFR-NON AM. 25 mL/min/1.73m2 Abnormal >60 [facility] Comment on above: Performed By: #### C MP #### [address] [id number] Glucose [Mass/Vol] 86 mg/dL Normal 74 - 99 [facility] Comment on above: Performed By: #### C MP #### [address] [id number] HCO3 (Bld) [Moles/Vol] 27 mmol/L Normal 21 - 32 [facility] Comment on above: Performed By: #### C MP #### [address] [id number] Potassium [Moles/Vol] 4.0 mmol/L Normal 3.5 - 5.3 [facility] Comment on above: Performed By: #### C MP #### [address] [id number] Protein [Mass/Vol] 5.0 g/dL Low 6.4 - 8.2 [facility] Comment on above: Performed By: #### C MP #### [address] [id number] Sodium [Moles/Vol] 136 mmol/L Normal 136 - 145 [facility] Comment on above: Performed By: #### C MP #### [address] [id number] Urea nitrogen [Mass/Vol] 55 mg/dL High 6 - 23 [facility] Comment on above: Performed By: #### C MP #### [address] [id number] Daily Progress Note-General Internal Medicineon 05-07-2020 Daily Progress Note-General Internal Medicine Service: General Internal Medicine Subjective Data: LINDA PERALTA is a 75 year old Female who is Hospital Day # 6. Seen and examined, denies any fever, chills, chest pain, shortness of breath. Rest of the ROS is negative. Objective Data: Objective Information: T PRBPSpO2 Value36.90858406/8697% Date/Time05/07 14: 14: 14: 14: 14:03 Range(36C - 36.8C ) (77 - 85 ) (18 - 20 ) (125 - 170 )/ (80 - 98 ) (94% - 97% ) Pain reported at 05/07 12:04: 0 = None ---- Intake and Output ----- Mn/Dy/Year TimeIntakeOutputNet May 07, 2020 2:00 [id number] May 06, 2020 10:00 [id number] The Intake and Output Totals for the last 24 hours are: IntakeOutputNet [id number] Physical Exam by System: Constitutional: Well developed, [...] Last Updated: 07-May-2020 14:49 by Baldo South) [facility] Daily Progress Note-Infectio us Diseaseon 05-07-2020 Daily Progress Note-Infectious Disease Service: Infectious Disease History of Present Illness: History Present Illness: HPI: Possible aspiration pneumonia Recent UTI with Citrobacter No fevers chills sweats minimal cold Subjective Data: LINDA PERALTA is a 75 year old Female who is Hospital Day # 6. Objective Data: Objective Information: T PRBPSpO2 Value36.28368915/9897% Date/Time05/07 8: 8: 8: 8: 8:01 Range(36C - 36.8C ) (77 - 85 ) (18 - 20 ) (125 - 170 )/ (80 - 98 ) (94% - 98% ) Pain reported at 05/07 12:04: 0 = None ---- Intake and Output ----- Mn/Dy/Year TimeIntakeOutputNet May 06, 2020 10:00 [id number] May 06, 2020 2:00 [id number] The Intake and Output Totals for the last 24 hours are: IntakeOutputNet [id number] T PRBPSpO2 Value36.23657248/9897% Date/Time05/07 8: 8: 8: 8: 8:01 Range(36C [...] RA Area A4C: 16.4 cm2 RA [employer] A4C: 5.0 cm M-MODE MEASUREMENTS: Normal Ranges: [...] 1.2 m/s (0.6-0.9m/s) PV Max P.2 mmHg [id number] Tremayne Mcleod MD Electronically signed on 05/02/2020 [...] Last Updated: 07-May-2020 13:30 by Alberto Allred) [facility] Daily Progress Note-Nephrolo gyon 05-07-2020 Daily Progress Note-Nephrology Service: Nephrology Subjective Data: LINDA PERALTA is a 75 year old Female who is Hospital Day # 6. renal function continues to slowly improve, uric acid and phos improving as well. Objective Data: Objective Information: T PRBPSpO2 Value36.91465609/9897% Date/Time05/07 8: 8: 8: 8: 8:01 Range(36C - 36.8C ) (77 - 85 ) (18 - 20 ) (125 - 170 )/ (80 - 98 ) (94% - 98% ) Pain reported at 05/06 23:56: 0 = None ---- Intake and Output ----- Mn/Dy/Year [facility] May 06, 2020 10:00 [id number] May 06, 2020 2:00 [id number] The Intake and Output Totals for the last 24 hours are: IntakeOutFormerly [facility] [id number] Constitutional: Alert, in no acute distress HEENT: [...] partial nephrectomy, DVT/PE who was initially at [facility] for AMS, hypercalcemia and hypotension now transferred here. 1. ANGELA on CKD: previously hypotensive at [place], now hypertensive, also CRS as pt is [...] Last Updated: 07-May-2020 11:30 by Leigh Billy) [facility] Daily Progress Note-Neurolog yon 05-07-2020 Daily [...] better. Objective Data: Objective Information: T PRBPSpO2 Value36.12222187/8697% Date/Time3/18 19:143 19:143 19:143 19: 19:14 Range(36C - 36.6C ) (77 - 85 ) (20 - 20 ) (131 - 170 )/ (80 - 98 ) (94% - 97% ) Pain reported at 05/07 12:04: 0 = None ---- Intake and Output ----- Mn/Dy/[facility] May 07, 2020 2:00 [id number] May 06, 2020 10:00 [id number] The Intake and Output Totals for the last 24 hours are: IntakeOutputNet [id number] Physical Exam by System: Neurological: The patient [...] kidney to her brother Sarcoidosis History of Lares's disease Gout Chronic kidney disease Hyperlipidemia Atopic [...] Updated: 07-May-2020 19:58 by Vicky Boyd) Normal [facility] Daily Progress Note-Neurology Service: Neurology Subjective Data: [...] better. Objective Data: Objective Information: T PRBPSpO2 Value36.86960191/8194% Date/Time05/06 19: 19: 19: 19: 19:32 Range(36.6C - 36.8C ) (71 - 85 ) (18 - 18 ) (125 - 162 )/ (81 - 96 ) (88% - 99% ) Pain reported at 05/06 11:17: 0 = None ---- Intake and Output ----- Mn/Dy/Year TimeIntakeOutputNet May 06, 2020 10:00 [id number] May 06, 2020 2:00 [id number] The Intake and Output Totals for the last 24 hours are: IntakeOutputNet [id number] Physical Exam by System: Neurological: The patient [...] Last Updated: 06-May-2020 22:03 by Vicky Boyd) [facility] Daily Progress Note-Urologyo n 05-07-2020 Daily Progress [...] below. Objective Data: Objective Information: T PRBPSpO2 Value36.91438967/8697% Date/Time05/07 14: 14: 14: 14: 14:03 Range(36C - 36.8C ) (77 - 85 ) (18 - 20 ) (125 - 170 )/ (80 - 98 ) (94% - 97% ) Pain reported at 05/07 12:04: 0 = None ---- Intake and Output ----- [facility]/ [facility] May 07, 2020 2:00 [id number] May 06, 2020 10:00 [id number] The Intake and Output Totals for the last 24 hours are: IntakeOutputNet [id number] T PRBPSpO2 Value36.52792065/8697% Date/Time05/07 14: 14: 14: 14: 14:03 Range(36C - 36.8C ) (77 - 85 ) (18 - 20 ) (125 - 170 )/ (80 - 98 ) (94% - 97% ) Pain reported at 05/07 12:04: 0 = None ---- Intake and Output ----- Mn/Dy/ [facility] May 07, 2020 2:00 [id number] May 06, 2020 10:00 [id number] The Intake and Output Totals for the last 24 hours are: IntakeOutputNet [id number] ---Intake--- Enteral - Oral PO Fluid/Feed (oral): [...] 8.1 H Basic Metabolic Panel Trending View [id number] 16:58:00 06-May-2020 05:38:00 Glucose, [id number] H 100 H NA138 141 K3.9 2.9 LL CL97 L 100 Bicarbonate, Serum31 32 Anion Gap, Serum14 12 BUN57 H 62 H CREAT2.05 H 2.15 H GFR-Non [id number] A 22 A GFR- Ngvdnxkl42 A 27 A Calcium, Serum9.0 9.0 Lab [...] Updated: 07-May-2020 16:37 by Alvin Sawyer) Normal [facility] PHOSPHORUSon 05-07-2020 Phosphate [Mass/Vol] 3.3 mg/dL Normal 2.5 - 4.9 [facility] Comment on above: Result Comment: The performance characteristics of phosphorus testing in heparinized plasma have been validated by the individual laboratory site where testing is performed. Testing on heparinized plasma is not approved by the FDA; however, such approval is not necessary. Performed By: #### C A #### [address] [id number] PTH RELATED PROTEINon 2020 Protein [Mass/Vol] 0.5 pmol/L Normal < or = 4.2 [facility] Comment on above: Result Comment: ---- ADDITIONAL INFORMATION This test was developed and its performance characteristics determined by [facility] in a manner consistent with CLIA requirements. This test has not been cleared or approved by the U.S. Food and Drug Administration. Test Performed by: [facility] [address] Insurance Follow Up Representative: Sunny Triplett M.D. Ph.D.; CLIA# [id number] Performed By: #### P R12 #### [facility] [address] [place] [address] Protein [Mass/Vol] 0.8 pmol/L Normal < or = 4.2 [facility] Comment on above: Result Comment: ---- ADDITIONAL INFORMATION This test was developed and its performance characteristics determined by [facility] in a manner consistent with CLIA requirements. This test has not been cleared or approved by the U.S. Food and Drug Administration. Test Performed by: [facility] [address], [place] [address] Insurance Follow Up Representative: Sunny Triplett M.D. Ph.D.; CLIA# [id number] Performed By: #### C BC #### [address] [id number] URIC ACIDon 05-07-2020 Urate [Mass/Vol] 8.1 mg/dL High 2.3 - 6.7 [facility] Comment on above: Result Comment: Nadia puncture immediately after or during the administration of Metamizole may lead to falsely low results. Testing should be performed immediately prior to Metamizole dosing. Performed By: #### C BC #### [address] [id number] BASIC METABOLIC PANELon 04-20 Anion gap [Moles/Vol] 14 mmol/L Normal 10 - 20 [facility] Comment on above: Performed By: #### C A #### [address] [id number] Calcium [Mass/Vol] 9.0 mg/dL Normal 8.6 - 10.3 [facility] Comment on above: Performed By: #### C A #### [address] [id number] Chloride [Moles/Vol] 97 mmol/L Low 98 - 107 [facility] Comment on above: Performed By: #### C A #### [address] [id number] Creatinine [Mass/Vol] 2.05 mg/dL High 0.50 - 1.05 [facility] Comment on above: Performed By: #### C A #### [address] [id number] GFR- AM. 28 mL/min/1.73m2 Abnormal >60 [facility] Comment on above: Result Comment: CALC ULATIONS OF ESTIMATED GFR ARE PERFORMED USING THE MDRD STUDY EQUATION FOR THE IDMS-TRACEABLE CREATININE METHODS. CLIN CHEM 2007;53:766-72 Performed By: #### C A #### [address] [id number] GFR-NON AM. 23 mL/min/1.73m2 Abnormal >60 [facility] Comment on above: Performed By: #### C A #### [address] [id number] Glucose [Mass/Vol] 124 mg/dL High 74 - 99 [facility] Comment on above: Performed By: #### C A #### [address] [id number] HCO3 (Bld) [Moles/Vol] 31 mmol/L Normal 21 - 32 [facility] Comment on above: Performed By: #### C A #### [address] [id number] Potassium [Moles/Vol] 3.9 mmol/L Normal 3.5 - 5.3 [facility] Comment on above: Performed By: #### C A #### [address] [id number] Sodium [Moles/Vol] 138 mmol/L Normal 136 - 145 [facility] Comment on above: Performed By: #### C A #### [address] [id number] Urea nitrogen [Mass/Vol] 57 mg/dL High 6 - 23 [facility] Comment on above: Performed By: #### C A #### [address] [id number] Anion gap [Moles/Vol] 12 mmol/L Normal 10 - 20 [facility] Comment on above: Order Comment: Aaron Mercado, 05/06/2020 06:54 Performed By: #### B MP ####[address] [id number] Calcium [Mass/Vol] 9.0 mg/dL Normal 8.6 - 10.3 [facility] Comment on above: Order Comment: Walker d- RB to Deale, 05/06/2020 06:54 Performed By: #### B MP ####[address] [id number] Chloride [Moles/Vol] 100 mmol/L Normal 98 - 107 [facility] Comment on above: Order Comment: Walker d- RB to [place], 05/06/2020 06:54 Performed By: #### B MP ####[address] [id number] Creatinine [Mass/Vol] 2.15 mg/dL High 0.50 - 1.05 [facility] Comment on above: Order Comment: Walker d- RB to De[place], 05/06/2020 06:54 Performed By: #### B MP ####[address] [id number] GFR- AM. 27 mL/min/1.73m2 Abnormal >60 [facility] Comment on above: Order Comment: Walker d- RB to [place], 05/06/2020 06:54 Result Comment: CALC ULATIONS OF ESTIMATED GFR ARE PERFORMED USING THE MDRD STUDY EQUATION FOR THE IDMS-TRACEABLE CREATININE METHODS. CLIN CHEM 2007;53:766-72 Performed By: #### B MP ####[address] [id number] GFR-NON AM. 22 mL/min/1.73m2 Abnormal >60 [facility] Comment on above: Order Comment: Walker d- RB to [place], 05/06/2020 06:54 Performed By: #### B MP ####[address] [id number] Glucose [Mass/Vol] 100 mg/dL High 74 - 99 [facility] Comment on above: Order Comment: Walker d- RB to [place], 05/06/2020 06:54 Performed By: #### B MP ####[address] [id number] HCO3 (Bld) [Moles/Vol] 32 mmol/L Normal 21 - 32 [facility] Comment on above: Order Comment: Walker d- RB to De[place], 05/06/2020 06:54 Performed By: #### B MP ####[facility] [place], [place] [id number] Potassium [Moles/Vol] 2.9 mmol/L Critically low 3.5 - 5.3 [facility] Comment on above: Order Comment: Walker d- RB to [place], 05/06/2020 06:54 Result Comment: Call ed- RB to [place], 05/06/2020 06:54 Performed By: #### B MP ####[address] [place], [place] [id number] Sodium [Moles/Vol] 141 mmol/L Normal 136 - 145 [facility] Comment on above: Order Comment: Walker d- RB to [place], 05/06/2020 06:54 Performed By: #### B MP ####[facility] [place], [place] [id number] Urea nitrogen [Mass/Vol] 62 mg/dL High 6 - 23 [facility] Comment on above: Order Comment: Walker d- RB to [place], 05/06/2020 06:54 Performed By: #### B MP ####[address] [place], [place] [id number] Daily Progress Note-Endocrin litzy 05-06-2020 Daily Progress [...] potassium Objective Data: Objective Information: T PRBPSpO2 Value36.53840075/9099% Date/Time05/06 7: 7: 7: 7: 7:33 Range(36.2C - 36.7C ) (71 - 82 ) (18 - 18 ) (136 - 162 )/ (82 - 96 ) (88% - 99% ) Pain reported at 05/06 11:17: 0 = None ---- Intake and Output ----- Mn/Dy/Year TimeIntakeOutFormerly [facility] May 05, 2020 10:00 [id number] May 05, 2020 2:00 [id number] The Intake and Output Totals for the last 24 hours are: IntakeOutputNet 387269-4113 T PRBPSpO2 Value36.30782753/9099% Date/Time05/06 7: 7: 7: 7: 7:33 Range(36.2C [...] laboratory results: Basic Metabolic Panel Trending View [id number] 05:38:00 05-May-2020 05:34:00 Lab Comment:Called- RB to Rogelio, 05/06/2020 06:54 Called- RB to Catherine Marroquin, 05/05/2020 06:47 Glucose, Pefhb165 H 98 NA141 139 K2.9 LL 2.9 LL CL100 100 Bicarbonate, Serum32 31 Anion Gap, Serum12 11 BUN62 H 72 H CREAT2.15 H 2.28 H GFR-Non Qrwkfhaa13 A 21 A GFR- Ydrcsfyr16 A 25 A Calcium, Serum9.0 9.1 Magnesium, [...] Updated: 06-May-2020 12:32 by Alexander Gregory) Normal [facility] Daily Progress Note-General Internal Medicineon 05-06-2020 Daily [...] negative. Objective Data: Objective Information: T PRBPSpO2 Value36.62687081/8498% Date/Time05/06 13: 13: 13: 13: 13:40 Range(36.2C - 36.7C ) (71 - 82 ) (18 - 18 ) (132 - 162 )/ (82 - 96 ) (88% - 99% ) Pain reported at 05/06 11:17: 0 = None ---- Intake and Output ----- [facility] May 05, 2020 10:00 [id number] May 05, 2020 2:00 [id number] The Intake and Output Totals for the last 24 hours are: IntakeOutputNet [id number] Physical Exam by System: Constitutional: Well developed, [...] Last Updated: 06-May-2020 13:56 by Baldo South) [facility] Daily Progress Note-Infectio us Diseaseon 05-06-2020 Daily Progress Note-Infectious Disease Service: Infectious Disease History of Present Illness: History Present Illness: HPI: Possible aspiration pneumonia Recent UTI with Citrobacter No fevers chills sweats minimal cold Subjective Data: LINDA PERALTA is a 75 year old Female who is Hospital Day # 5. Objective Data: Objective Information: T PRBPSpO2 Value36.50773288/9099% Date/Time05/06 7: 7: 7: 7: 7:33 Range(36.2C - 36.7C ) (71 - 82 ) (18 - 18 ) (136 - 162 )/ (82 - 96 ) (88% - 99% ) Pain reported at 05/06 11:17: 0 = None ---- Intake and Output ----- [facility] May 05, 2020 10:00 [id number] May 05, 2020 2:00 [id number] The Intake and Output Totals for the last 24 hours are: IntakeOutputNet 920004-5322 T PRBPSpO2 Value36.58527922/9099% Date/Time05/06 7: 7: 7: 7: 7:33 Range(36.2C [...] RA Area A4C: 16.4 cm2 RA [employer] A4C: 5.0 cm M-MODE MEASUREMENTS: Normal Ranges: [...] 1.2 m/s (0.6-0.9m/s) PV Max P.2 mmHg [id number] Tremayne Mcleod MD Electronically signed on 05/02/2020 [...] Last Updated: 06-May-2020 12:25 by Alberto Allred) [facility] Daily Progress Note-Nephrolo gyon 05-06-2020 Daily Progress Note-Nephrology Service: Nephrology Subjective Data: LINDA PERALTA is a 75 year old Female who is Hospital Day # 5. renal function slowly improving, K low this AM, getting corrected, feels better. Objective Data: Objective Information: T PRBPSpO2 Value36.17952915/9099% Date/Time05/06 7: 7: 7: 7: 7:33 Range(36.2C - 36.7C ) (71 - 82 ) (18 - 18 ) (136 - 162 )/ (82 - 96 ) (88% - 99% ) Pain reported at 05/06 0:50: 0 = None ---- Intake and Output ----- Mn/Dy/Year TimeIntakeOutputNet May 05, 2020 10:00 [id number] May 05, 2020 2:00 [id number] The Intake and Output Totals for the last 24 hours are: IntakeOutputNet 178177-4055 Constitutional: Alert, in no acute distress HEENT: [...] partial nephrectomy, DVT/PE who was initially at [place] for AMS, hypercalcemia and hypotension now transferred here. 1. ANGELA on CKD: previously hypotensive at [place], now hypertensive, also CRS as pt is [...] Updated: 06-May-2020 11:02 by Leigh Billy) Normal [facility] Daily Progress Note-Urologyo n 05-06-2020 Daily Progress [...] below. Objective Data: Objective Information: T PRBPSpO2 Value36.92064136/8498% Date/Time05/06 13: 13: 13: 13: 13:40 Range(36.5C - 36.7C ) (71 - 82 ) (18 - 18 ) (132 - 162 )/ (83 - 96 ) (88% - 99% ) Pain reported at 05/06 11:17: 0 = None ---- Intake and Output ----- [facility] May 06, 2020 2:00 [id number] May 05, 2020 10:00 [id number] The Intake and Output Totals for the last 24 hours are: IntakeOutputNet 679664-7470 T PRBPSpO2 Value36.71611992/8498% Date/Time05/06 13: 13: 13: 13: 13:40 Range(36.5C - 36.7C ) (71 - 82 ) (18 - 18 ) (132 - 162 )/ (83 - 96 ) (88% - 99% ) Pain reported at 05/06 11:17: 0 = None ---- Intake and Output ----- [facility] May 06, 2020 2:00 [id number] May 05, 2020 10:00 [id number] The Intake and Output Totals for the last 24 hours are: IntakeOutputNet 645891-7120 ---Intake--- Enteral - Oral PO Fluid/Feed (oral): [...] laboratory results: Basic Metabolic Panel Trending View [id number] 05:38:00 05-May-2020 05:34:00 Lab Comment:Called- RB to Rogelio, 05/06/2020 06:54 Called- RB to Catherineaurelia Marroquin, 05/05/2020 06:47 Glucose, Lhjjz115 H 98 NA141 139 K2.9 LL 2.9 LL CL100 100 Bicarbonate, Serum32 31 Anion Gap, Serum12 11 BUN62 H 72 H CREAT2.15 H 2.28 H GFR-Non Jbbscpua80 A 21 A GFR- Qiejagvi26 A 25 A Calcium, Serum9.0 9.1 Magnesium, [...] Last Updated: 06-May-2020 16:21 by Alvin Sawyer) [facility] Discharge [id number] 021 Discharge Profile2 Discharge Orders: Anticipated Discharge Date: Anticipated Discharge [id number] DNAR: DNAR Status: DNAR Was Extending the DNAR Status Following Discharge Discussed w/ Patient/Family: yes What was the Result of the Discussion: patient wishes to have DNAR extended [place] DNR State Form Complete: yes [place] DNR State Form Status: DNR Comfort Care [...] transfer pt here for subspecialty evaluation. Dr Gergory reportedly agreed to consult. Pt had a [...] Physician/Dept/Jocelin Gregory MD / Endocrinology [facility] Reason for Referralhosp dc fu Scheduled Date/Rvwv79-Oll-3043 15:00 [address] [place] [address] CommentsPlease wear a mask when entering the building. Please bring discharge papers, a list of all medications, insurance card photo id. Please call the office if unable to keep this appointment. Electronic Signatures: Bernardino Valentino (PT ACC REP) (Signed 06-May-2020 13:18) Authored: Discharge Orders, Appointments, Gold Form - Food Cooking Machine Operator Summary Baldo South) (Signed 08-May-2020 15:33) Authored: Discharge Orders, Hospital Course (Home Care/Gold Form), Gold Form Orders, Provider FINAL REVIEW of Orders Last Updated: 08-May-2020 15:33 by Baldo South) Normal [facility] EMR ADDONon 05-06-2020 ADDON CONFIRMATION REQUEST REC'D Normal [facility] Comment on above: Performed By: #### C MP #### [address] [id number] MAGNESIUMon 05-06-2020 Magnesium [Mass/Vol] 1.80 mg/dL Normal 1.60 - 2.40 [facility] Comment on above: Performed By: #### C A #### [address] [id number] VITAMIN D 1,25-DIHYDROXYon 0 05-06-2020 VITAMIN D 1,25-DIHYDROXY 34.3 pg/mL Normal 19.9-79.3 [facility] Comment on above: Result Comment: INTE RPRETIVE INFORMATION: Vitamin D, 1,25-Dihydroxy This test is primarily indicated during patient evaluation for hypercalcemia and renal failure. A normal result does not rule out Vitamin D deficiency. The recommended test for diagnosing Vitamin D deficiency is Vitamin D 25-hydroxy. Performed By: [facility] [address] [place] [address] Concierge Manager: Eliza Fuller MD Performed By: #### V TDDI #### [facility] [address] [place] [address] BASIC METABOLIC PANELon 04-20 Anion gap [Moles/Vol] 11 mmol/L Normal 10 - 20 [facility] Comment on above: Order Comment: TEST CALCIUM WAS CANCELLED, 05/02/2020 12:20 added per RN 05/02/2020 12:20. Performed By: #### C A #### [address] [id number] Calcium [Mass/Vol] 9.1 mg/dL Normal 8.6 - 10.3 [facility] Comment on above: Order Comment: TEST CALCIUM WAS CANCELLED, 05/02/2020 12:20 added per RN 05/02/2020 12:20. Performed By: #### C A #### [address] [id number] Chloride [Moles/Vol] 100 mmol/L Normal 98 - 107 [facility] Comment on above: Order Comment: TEST CALCIUM WAS CANCELLED, 05/02/2020 12:20 added per RN 05/02/2020 12:20. Performed By: #### C A #### [address] [id number] Creatinine [Mass/Vol] 2.28 mg/dL High 0.50 - 1.05 [facility] Comment on above: Order Comment: TEST CALCIUM WAS CANCELLED, 05/02/2020 12:20 added per RN 05/02/2020 12:20. Performed By: #### C A #### [address] [id number] GFR- AM. 25 mL/min/1.73m2 Abnormal >60 [facility] Comment on above: Order Comment: TEST CALCIUM WAS CANCELLED, 05/02/2020 12:20 added per RN 05/02/2020 12:20. Result Comment: CALC ULATIONS OF ESTIMATED GFR ARE PERFORMED USING THE MDRD STUDY EQUATION FOR THE IDMS-TRACEABLE CREATININE METHODS. CLIN CHEM 2007;53:766-72 Performed By: #### C A #### [address] [id number] GFR-NON AM. 21 mL/min/1.73m2 Abnormal >60 [facility] Comment on above: Order Comment: TEST CALCIUM WAS CANCELLED, 05/02/2020 12:20 added per RN 05/02/2020 12:20. Performed By: #### C A #### [address] [id number] Glucose [Mass/Vol] 98 mg/dL Normal 74 - 99 [facility] Comment on above: Order Comment: TEST CALCIUM WAS CANCELLED, 05/02/2020 12:20 added per RN 05/02/2020 12:20. Performed By: #### C A #### [address] [id number] HCO3 (Bld) [Moles/Vol] 31 mmol/L Normal 21 - 32 [facility] Comment on above: Order Comment: TEST CALCIUM WAS CANCELLED, 05/02/2020 12:20 added per RN 05/02/2020 12:20. Performed By: #### C A #### [address] [id number] Potassium [Moles/Vol] 2.9 mmol/L Critically low 3.5 - 5.3 [facility] Comment on above: Order Comment: TEST CALCIUM WAS CANCELLED, 05/02/2020 12:20 added per RN 05/02/2020 12:20. Result Comment: Call ed- RB to Catherine Marroquin, 05/05/2020 06:47 Performed By: #### C A #### [address] [id number] Sodium [Moles/Vol] 139 mmol/L Normal 136 - 145 [facility] Comment on above: Order Comment: TEST CALCIUM WAS CANCELLED, 05/02/2020 12:20 added per RN 05/02/2020 12:20. Performed By: #### C A #### [address] [id number] Urea nitrogen [Mass/Vol] 72 mg/dL High 6 - 23 [facility] Comment on above: Order Comment: TEST CALCIUM WAS CANCELLED, 05/02/2020 12:20 added per RN 05/02/2020 12:20. Performed By: #### C A #### [address] [id number] CBCon 05-05-2020 Erythrocyte distribution width (RBC) [Ratio] 15.6 % High 11.5 - 14.5 [facility] Comment on above: Performed By: #### C BC ####[facility] [place], [place] [id number] Hematocrit (Bld) [Volume fraction] 30.6 % Low 36.0 - 46.0 [facility] Comment on above: Performed By: #### C BC ####[address] [place], [place] [id number] Hemoglobin (Bld) [Mass/Vol] 10.2 g/dL Low 12.0 - 16.0 [facility] Comment on above: Performed By: #### C BC ####[facility] [place], [place] [phone] MCHC (RBC) [Mass/Vol] 33.3 g/dL Normal 32.0 - 36.0 [facility] Comment on above: Performed By: #### C BC ####[address] [id number] MCV (RBC) [Entitic vol] 89 fL Normal 80 - 100 [facility] Comment on above: Performed By: #### C BC ####[facility] [place], [place] [id number] Platelets (Bld) [#/Vol] 323 10*3/uL Normal 150 - 450 [facility] Comment on above: Performed By: #### C BC ####[facility] [place], [place] [phone] RBC (Bld) [#/Vol] 3.43 x10E12/L Low 4.00 - 5.20 [facility] Comment on above: Performed By: #### C BC ####[facility] [place], [place] [phone] WBC (Bld) [#/Vol] 19.9 10*3/uL High 4.4 - 11.3 [facility] Comment on above: Performed By: #### C BC ####[address] [place], [place] [phone] Consult-Orthopaedicson 05-05 Consult-Orthopaedics Service: Service: Orthopaedics History [...] will be reviewed by Dr. Glynn our solar project coordination specialist. The patient is anticoagulated with Coumadin. [...] Last Updated: 05-May-2020 18:14 by Javier Hathaway) [facility] Daily Progress Note-Endocrin ologyon 05-05-2020 Daily Progress Note-Endocrinology Service: Endocrinology Subjective Data: LINDA PERALTA is a 75 year old Female who is Hospital Day # 4. Additional Information: Doing well she feels she has improved c/o lot of weakness all over Objective Data: Objective Information: T PRBPSpO2 Value36.218227/8395% Date/Time05/05 19: 19: 19: 19:19 Range(36.2C - 36.5C ) (73 - 83 ) (136 - 148 )/ (82 - 88 ) (94% - 98% ) Pain reported at 05/05 9:49: 0 = None ---- Intake and Output ----- Mn/Dy/Year TimeIntakeOutFormerly [facility] May 05, 2020 2:00 [id number] May 05, 2020 6:00 [id number] May 04, 2020 10:00 [id number] The Intake and Output Totals for the last 24 hours are: IntakeOutputNet [id number] Physical Exam by System: Constitutional: Well developed, [...] Serum 31.6 Basic Metabolic Panel Trending View [id number] 05:34:00 04-May-2020 05:26:00 Lab Comment:Called- RB to Catherine Cara, 05/05/2020 06:47 Glucose, Serum98 90 NA139 137 K2.9 LL 3.6 CL100 101 Bicarbonate, Serum31 27 Anion Gap, Serum11 13 BUN72 H 79 H CREAT2.28 H 2.39 H GFR-Non Xkgvfsri01 A 20 A GFR- Bdzwuijf04 A 24 A Calcium, Serum9.1 9.8 Uric [...] Updated: 05-May-2020 21:57 by Alexander Gregory) Normal [facility] Daily Progress Note-General Internal Medicineon 05-05-2020 Daily [...] negative. Objective Data: Objective Information: T PRBPSpO2 Value36.95159882/8398% Date/Time05/05 7: 7: 14: 7: 7:22 Range(36.2C - 36.3C ) (75 - 83 ) (18 - 18 ) (135 - 148 )/ (83 - 88 ) (93% - 98% ) Pain reported at 05/05 9:49: 0 = None ---- Intake and Output ----- Mn/Dy/Year TimeIntakeOutputNet May 05, 2020 2:00 [id number] May 05, 2020 6:00 [id number] May 04, 2020 10:00 [id number] The Intake and Output Totals for the last 24 hours are: IntakeOutputNet [id number] Physical Exam by System: Constitutional: Well developed, [...] Last Updated: 05-May-2020 14:08 by Baldo South) [facility] Daily Progress Note-Infectio us Diseaseon 05-05-2020 Daily Progress Note-Infectious Disease Service: Infectious Disease History of Present Illness: History Present Illness: HPI: Possible aspiration pneumonia Recent UTI with Citrobacter No fevers chills sweats minimal cold Subjective Data: LINDA PERALTA is a 75 year old Female who is Hospital Day # 4. Objective Data: Objective Information: T PRBPSpO2 Value36.65661843/8398% Date/Time05/05 7: 7: 14: 7: 7:22 Range(36.2C - 36.3C ) (75 - 83 ) (18 - 18 ) (135 - 148 )/ (83 - 88 ) (93% - 98% ) Pain reported at 05/05 9:49: 0 = None ---- Intake and Output ----- Mn/Dy/Year TimeIntakeOutputNet May 05, 2020 6:00 [id number] May 04, 2020 10:00 [id number] May 04, 2020 2:00 [id number] The Intake and Output Totals for the last 24 hours are: IntakeOutputNet [id number] T PRBPSpO2 Value36.39653323/8398% Date/Time3/16 7: 7: 14:16 7:16 7:22 Range(36.2C [...] laboratory results: Complete Blood Count Trending View [id number] 05:35:00 04-May-2020 05:26:00 White Blood Cell Count19.9 H 22.3 H Red Blood Cell Count3.43 L 3.82 L HGB10.2 L 11.2 L HCT30.6 L 34.4 L MCV89 90 MCHC33.3 32.6 DEU614 382 RDW-CV15.6 H 15.9 H Parathormone Intact, Serum 05-May-2020 05:35:00 ResultValue Parathormone Intact, Serum 31.6 Basic Metabolic Panel Trending View [id number] 05:34:00 04-May-2020 05:26:00 Lab Comment:Called- RB to Catherine Marroquin, 05/05/2020 06:47 Glucose, Serum98 90 NA139 137 K2.9 LL 3.6 CL100 101 Bicarbonate, Serum31 27 Anion Gap, Serum11 13 BUN72 H 79 H CREAT2.28 H 2.39 H GFR-Non Zycajkwj69 A 20 A GFR- Fyhxoyqm27 A 24 A Calcium, Serum9.1 9.8 PT + INR, Plasma Trending View [id number]-Gyg-5466 05:34:00 04-May-2020 05:26:00 Prothrombin Time, Hcwngl99.6 H 27.5 H International Normalized Ratio, Plasma2.0 [...] RA Area A4C: 16.4 cm2 RA [employer] A4C: 5.0 cm M-MODE MEASUREMENTS: Normal Ranges: [...] 1.2 m/s (0.6-0.9m/s) PV Max P.2 mmHg [id number] Tremayne Mcleod MD Electronically signed on 05/02/2020 [...] Updated: 05-May-2020 12:21 by Alberto Allred) Normal [facility] Daily Progress Note-Nephrolo gray 05-05-2020 Daily Progress Note-Nephrology Service: Nephrology Subjective Data: LINDA PERALTA is a 75 year old Female who is Hospital Day # 4. renal function stable, Ca wnl, uric acid better, off fluids. Objective Data: Objective Information: T PRBPSpO2 Value36.68259783/8398% Date/Time05/05 7: 7: 14: 7: 7:22 Range(36.2C - 36.3C ) (75 - 83 ) (18 - 18 ) (135 - 148 )/ (83 - 88 ) (93% - 98% ) Pain reported at 05/05 9:49: 0 = None ---- Intake and Output ----- Mn/Dy/Year TimeIntakeOutputNet May 05, 2020 6:00 [id number] May 04, 2020 10:00 [id number] May 04, 2020 2:00 [id number] The Intake and Output Totals for the last 24 hours are: IntakeOutputNet [id number] Constitutional: Alert, in no acute distress HEENT: [...] partial nephrectomy, DVT/PE who was initially at [facility] for AMS, hypercalcemia and hypotension now transferred here. 1. ANGELA on CKD: previously hypotensive at [facility], now hypertensive, also CRS as pt is [...] Updated: 05-May-2020 14:00 by Leigh Billy) Normal [facility] Daily Progress Note-Neurolog yon 05-05-2020 Daily Progress [...] better. Objective Data: Objective Information: T PRBPSpO2 Value36.425616/8295% Date/Time05/05 14: 14: 14: 14:30 Range(36.2C - 36.3C ) (73 - 83 ) (135 - 148 )/ (82 - 88 ) (94% - 98% ) Pain reported at 05/05 9:49: 0 = None ---- Intake and Output ----- Mn/Dy/Year TimeIntakeOutputNet May 05, 2020 2:00 [id number] May 05, 2020 6:00 [id number] May 04, 2020 10:00 [id number] The Intake and Output Totals for the last 24 hours are: IntakeOutputNet [id number] Physical Exam by System: Neurological: The patient [...] kidney to her brother Sarcoidosis History of Lares's disease Gout Chronic kidney disease Hyperlipidemia Atopic [...] Last Updated: 05-May-2020 19:20 by Vicky Boyd) [facility] Daily Progress Note-Urologyo n 05-05-2020 Daily [...] below. Objective Data: Objective Information: T PRBPSpO2 Value36.11307807/8398% Date/Time05/05 7: 7: 14: 7: 7:22 Range(36.2C - 36.3C ) (75 - 83 ) (18 - 18 ) (135 - 148 )/ (83 - 88 ) (93% - 98% ) Pain reported at 05/05 9:49: 0 = None ---- [facility] and Output ----- [facility] May 05, 2020 6:00 [id number] May 04, 2020 10:00 [id number] May 04, 2020 2:00 [id number] The Intake and Output Totals for the last 24 hours are: IntakeOutputNet [id number] T PRBPSpO2 Value36.04870840/8398% Date/ 7: 7: 14: 7: 7:22 Range(36.2C - 36.3C ) (75 - 83 ) (18 - 18 ) (135 - 148 )/ (83 - 88 ) (93% - 98% ) Pain reported at 05/05 9:49: 0 = None ---- Intake and Output ----- [facility] May 05, 2020 6:00 [id number] May 04, 2020 10:00 [id number] May 04, 2020 2:00 [id number] The Intake and Output Totals for the last 24 hours are: IntakeOutputNet [id number] ---Intake--- Enteral - Oral PO Fluid/Feed (oral): [...] laboratory results: Complete Blood Count Trending View [id number]-[id number] 05:35:00 04-May-2020 05:26:00 White Blood Cell Count19.9 H 22.3 H Red Blood Cell Count3.43 L 3.82 L HGB10.2 L 11.2 L HCT30.6 L 34.4 L MCV89 90 MCHC33.3 32.6 QLP705 382 RDW-CV15.6 H 15.9 H Parathormone Intact, Serum 05-May-2020 05:35:00 ResultValue Parathormone Intact, Serum 31.6 Basic Metabolic Panel Trending View [id number] 05:34:00 04-May-2020 05:26:00 Lab Comment:Called- RB to Catherine Cara, 05/05/2020 06:47 Glucose, Serum98 90 NA139 137 K2.9 LL 3.6 CL100 101 Bicarbonate, Serum31 27 Anion Gap, Serum11 13 BUN72 H 79 H CREAT2.28 H 2.39 H GFR-Non Vjxpzukg79 A 20 A GFR- Evigbgrt66 A 24 A Calcium, Serum9.1 9.8 PT [...] RA Area A4C: 16.4 cm2 RA [employer] A4C: 5.0 cm M-MODE MEASUREMENTS: Normal Ranges: [...] 1.2 m/s (0.6-0.9m/s) PV Max P.2 mmHg [id number] Tremayne Mlceod MD Electronically signed on 05/02/2020 at 1:08:29 [...] Updated: 05-May-2020 13:22 by Alvin Sawyer) Normal [facility] CHELA PATH REVIEWon 05-05-2020 PATH REVIEW-CHELA NNEKA Normal [facility] Comment on above: Result Comment: By h er/his signature above, the Pathologist listed as making the final interpretation certifies that she/he has personally reviewed this case. Performed By: #### P R12 #### [facility] [address] [place] [address] PARATHYROID HORMONE,INTACTon 05-05-2020 PARATHYROID HORMONE,INTACT 31.6 pg/mL Normal 12.0 - 88.0 [facility] Comment on above: Performed By: #### P TH ####[address] [id number] PHOSPHORUSon 05-05-2020 Phosphate [Mass/Vol] 4.8 mg/dL Normal 2.5 - 4.9 [facility] Comment on above: Result Comment: The performance characteristics of phosphorus testing in heparinized plasma have been validated by the individual laboratory site where testing is performed. Testing on heparinized plasma is not approved by the FDA; however, such approval is not necessary. Performed By: #### P HOS ####[address] [id number] PROTEIN ELECTROPHORESIS + IM MUNOFIXATION, SERUMon 05-05-2020 IMMUNOFIXATION INTERP NORMAL Normal [facility] Comment on above: Result Comment: No m onoclonal proteins detected by immunofixation. Performed By: #### I FE2 ####[address] [id number] [place] [address] INTERPRETATION SEE COMMENT Normal [facility] Comment on above: Result Comment: REFL EXED TO IMMUNOFIXATION ELECTROPHORESIS Hypoalbuminemia. Performed By: #### I FE2 ####[facility] [place], [place] [id number] [place] [address] MONOCLONAL PROTEIN NONE DETECTED Normal [facility] Comment on above: Performed By: #### I FE2 ####[facility] [place], [place] [id number] [place] [address] PT/INRon 05-05-2020 INR Coag (PPP) [Relative time] 2.0 {INR} High 0.9 - 1.1 [facility] Comment on above: Performed By: #### P TINR ####[address] [id number] PT Coag (PPP) [Time] 23.6 s High 10.1 - 13.3 [facility] Comment on above: Performed By: #### P TINR ####[address] [id number] SPE PATH REVIEWon 05-05-2020 PATH REVIEW-SPE NNEKA Normal [facility] Comment on above: Result Comment: By h er/his signature above, the Pathologist listed as making the final interpretation certifies that she/he has personally reviewed this case. Performed By: #### P R12 #### [facility] [address] [place] [address] Swallow Evaluation v2-Bedsid e Clinical Swallow, SLPon 05-05-2020 Swallow Evaluation v2-Bedside Clinical Swallow, MAIL HANDLER ASSISTANT Rehab: Info: Time IN12:00 Time OUT12:15 Total Treatment [id number] Evaluation TypeBedside Clinical Swallow, MAIL HANDLER ASSISTANT Patient Effortgood Patient Profile Reviewedyes Reason for ReferralDysphagia Referring PhysicianTamesis General Observations of PatientPatient was seen for a bedside swallow evaluation this date. Patient was awake, alert, and cooperative. Pertinent History of Current Functional ProblemPt [facility] for endocrinology [...] Met (Swallow Eval)yes; treatment indicated Therapy Frequency (MAIL HANDLER ASSISTANT)3-5x/wk Expected Duration Therapy Ehlqllh79 minutes MAIL HANDLER ASSISTANT Diet Recommendations (Swallow Eval)REGULAR WITH THIN LIQUIDS Recommended Feeding/Eating Techniques (Swallow Eval)alternate between small bites and sips of food/liquid& double/multiple swallows& feed upright in 90 degree position& small sips/bites& slow rate Monitor for Signs of Aspiration (Swallow Eval)cough; gurgly voice; throat clearing; fever; upper respiratory infection; pneumonia Short Term Goals: Dysphagia/Swallow: Established [id number] Dysphagia/Swallow: Goal Details1. Patient will tolerate highest [...] evaluation. This documentation was completed using the [employer] system. There may be spelling and/or grammatical errors that were not corrected prior to final submission. Electronic Signatures: Jayme Keys (MAIL HANDLER ASSISTANT) (Signed 05-May-2020 13:38) Authored: Info, Impression, Short Term Goals, Education Last Updated: 05-May-2020 13:38 by Jayme Keys (MAIL HANDLER ASSISTANT) Normal [facility] URIC ACIDon 05-05-2020 Urate [Mass/Vol] 9.7 mg/dL High 2.3 - 6.7 [facility] Comment on above: Result Comment: Nadia puncture immediately after or during the administration of Metamizole may lead to falsely low results. Testing should be performed immediately prior to Metamizole dosing. Performed By: #### C MP #### [facility] [address] [place], [place] [id number] BASIC METABOLIC PANELon 04-20 Anion gap [Moles/Vol] 13 mmol/L Normal 10 - 20 [facility] Comment on above: Performed By: #### C MP #### [facility] [address] [place], [place] [id number] Calcium [Mass/Vol] 9.8 mg/dL Normal 8.6 - 10.3 [facility] Comment on above: Performed By: #### C MP #### [address] [id number] Chloride [Moles/Vol] 101 mmol/L Normal 98 - 107 [facility] Comment on above: Performed By: #### C MP #### [address] [id number] Creatinine [Mass/Vol] 2.39 mg/dL High 0.50 - 1.05 [facility] Comment on above: Performed By: #### C MP #### [address] [id number] GFR- AM. 24 mL/min/1.73m2 Abnormal >60 [facility] Comment on above: Result Comment: CALC ULATIONS OF ESTIMATED GFR ARE PERFORMED USING THE MDRD STUDY EQUATION FOR THE IDMS-TRACEABLE CREATININE METHODS. CLIN CHEM 2007;53:766-72 Performed By: #### C MP #### [address] [id number] GFR-NON AM. 20 mL/min/1.73m2 Abnormal >60 [facility] Comment on above: Performed By: #### C MP #### [address] [id number] Glucose [Mass/Vol] 90 mg/dL Normal 74 - 99 [facility] Comment on above: Performed By: #### C MP #### [address] [id number] HCO3 (Bld) [Moles/Vol] 27 mmol/L Normal 21 - 32 [facility] Comment on above: Performed By: #### C MP #### [address] [id number] Potassium [Moles/Vol] 3.6 mmol/L Normal 3.5 - 5.3 [facility] Comment on above: Performed By: #### C MP #### [address] [id number] Sodium [Moles/Vol] 137 mmol/L Normal 136 - 145 [facility] Comment on above: Performed By: #### C MP #### [facility] [address] [place], [place] [id number] Urea nitrogen [Mass/Vol] 79 mg/dL High 6 - 23 [facility] Comment on above: Performed By: #### C MP #### [facility] [address] [place], [place] [id number] CBCon 05-04-2020 Erythrocyte distribution width (RBC) [Ratio] 15.9 % High 11.5 - 14.5 [facility] Comment on above: Performed By: #### P R12 #### [facility] [address] [place] [address] Hematocrit (Bld) [Volume fraction] 34.4 % Low 36.0 - 46.0 [facility] Comment on above: Performed By: #### P R12 #### [facility] [address] [place] [address] Hemoglobin (Bld) [Mass/Vol] 11.2 g/dL Low 12.0 - 16.0 [facility] Comment on above: Performed By: #### P R12 #### [facility] [address] [place] [address] MCHC (RBC) [Mass/Vol] 32.6 g/dL Normal 32.0 - 36.0 [facility] Comment on above: Performed By: #### P R12 #### [facility] [address] [place] [address] MCV (RBC) [Entitic vol] 90 fL Normal 80 - 100 [facility] Comment on above: Performed By: #### P R12 #### [facility] [address] [place] [address] Platelets (Bld) [#/Vol] 382 10*3/uL Normal 150 - 450 [facility] Comment on above: Performed By: #### P R12 #### [facility] [address] [place] [address] RBC (Bld) [#/Vol] 3.82 x10E12/L Low 4.00 - 5.20 [facility] Comment on above: Performed By: #### P R12 #### [facility] [address] [place] [address] WBC (Bld) [#/Vol] 22.3 10*3/uL High 4.4 - 11.3 [facility] Comment on above: Performed By: #### P R12 #### [facility] [address] [place] [address] CREATINE KINASEon 05-04-2020 CK [Catalytic activity/Vol] 51 U/L Normal 0 - 215 [facility] Comment on above: Performed By: #### C BC #### [facility] [address] [place], [place] [id number] Consult-Endocrinologyon 04-20 Consult-Endocrinology Service: Service: Endocrinology Consult: [...] penicillins: Rash Objective: Objective Information: T PRBPSpO2 Value36.17704719/9097% Date/Time05/04 8: 8: 8: 8: 8:26 Range(36.2C [...] laboratory results: Complete Blood Count Trending View [id number] 05:26:00 03-May-2020 05:31:00 White Blood Cell Count22.3 H 22.9 H Red Blood Cell Count3.82 L 3.81 L HGB11.2 L 11.1 L HCT34.4 L 33.8 L MCV90 89 MCHC32.6 32.8 TZO454 405 RDW-CV15.9 H 16.0 H Basic Metabolic Panel 04-May-2020 05:26:00 ResultValue Glucose, Serum 90 NA 137 K 3.6 CL 101 Bicarbonate, Serum 27 Anion Gap, Serum 13 BUN 79 H CREAT 2.39 H GFR-Non 20 A GFR- 24 A Calcium, Serum 9.8 Urinalysis with Culture if Indicated 03-May-2020 11:12:00 ResultValue Color, Urine STRAW Reference Range: STRAW,YELLOW Appearance, Urine CLEAR Specific Union, Urine 1.008 pH, Urine 6.0 Protein, Urine [...] Lactate, Level 1.8 Culture, Blood Trending View [id number] 10:49:00 03-May-2020 10:48:00 Culture, BloodNEGATIVE TO DATE, CULTURE IN PROGRESS. NEGATIVE TO DATE, CULTURE IN PROGRESS. Comprehensive Metabolic Panel Trending View [id number] 05:31:00 02-May-2020 02:22:00 Glucose, Serum93 184 H NA138 138 K3.3 L 4.2 CL101 101 Bicarbonate, Serum26 26 Anion Gap, Serum14 15 BUN86 H 84 H CREAT2.39 H 2.31 H GFR-Non Vyuflwzm15 A 20 A GFR- Iyxlenmq35 A 24 A Calcium, Serum10.8 H 12.3 [...] 2020 4:41PM] Consult Status: Consult Order ID: [id number] Problem/Assessment/Plan: Impression 1: Hypercalcemia and CKD ANGELA [...] Updated: 26-May-2020 16:04 by Alexander Gregory) Normal [facility] Consult-Urologyon 05-04-2020 Consult-Urology Service: Service: Urology Consult: [...] penicillins: Rash Objective: Objective Information: T PRBPSpO2 Value36.49966092/8593% Date/Time05/04 14: 14: 14: 14: 14:39 Range(36.2C - 36.7C ) (71 - 93 ) (16 - 18 ) (139 - 156 )/ (85 - 92 ) (92% - 97% ) Pain reported at 05/04 8:26: 0 = None ---- Intake and Output ----- [facility] May 04, 2020 2:00 [id number] May 04, 2020 6:00 [id number] May 03, 2020 10:00 [id number] The Intake and Output Totals for the last 24 hours are: [facility] [id number] ---Intake--- IV Fluids Infusion: 1200 mL Infusion: [...] results: PT + INR, Plasma Trending View [id number] 05:26:00 03-May-2020 10:50:00 Prothrombin Time, Qfhfyf40.5 H 33.4 H International Normalized Ratio, Plasma2.3 [...] Reference Range: STRAW,YELLOW Appearance, Urine CLEAR Specific [place], Urine 1.008 pH, Urine 6.0 Protein, Urine [...] RA Area A4C: 16.4 cm2 RA [place] [employer] A4C: 5.0 cm M-MODE MEASUREMENTS: Normal Ranges: [...] 1.2 m/s (0.6-0.9m/s) PV Max P.2 mmHg [id number] Tremayne Mcleod MD Electronically signed on 05/02/2020 at 1:08:29 PM Final Echocardiogram [May 02 2020 1:08PM] Impression: No evidence of hydronephrosis. Nonobstructing calculus at the upper pole. Complex cyst with calcification given hypodensity at the level of the renal hilum for which nonemergent CT would be recommended for further evaluation. Ultrasound Renal Bilateral [May 02 2020 12:57PM] Consult Status: Consult Order ID: [id number] Problem List: Admitting Dx: Hypercalcemia: Additional Dx: Change in mental status: Onset Date: 04-May-2020 Electronic Signatures: Alvin Sawyer) (Signed 04-May-2020 17:33) Authored: Service, History of Present Illness, Allergies, Objective, Assessment/Recommendatio ns, Note Completion Last Updated: 04-May-2020 17:33 by Alvin Sawyer) [facility] Daily Progress Note-Infectio us Diseaseon 05-04-2020 Daily [...] 3. Objective Data: Objective Information: T PRBPSpO2 Value36.31523303/8593% Date/Time05/04 14: 14: 14: 14: 14:39 Range(36.2C - 36.3C ) (71 - 93 ) (18 - 18 ) (139 - 156 )/ (85 - 90 ) (92% - 97% ) Pain reported at 05/04 8:26: 0 = None ---- Intake and Output ----- Mn/Dy/Year TimeIntakeOutFormerly [facility] May 04, 2020 2:00 [id number] May 04, 2020 6:00 [id number] May 03, 2020 10:00 [id number] The Intake and Output Totals for the last 24 hours are: IntakeOutputNet [id number] Recent Lab Results: Results: CBC: 05/04/2020 05:26 [...] Updated: 04-May-2020 19:38 by Di Estrada () [facility] Daily Progress Note-Medicine on 05-04-2020 Daily Progress Note-Medicine Service: Medicine Subjective Data: LINDA PERALTA is a 75 year old Female who is Hospital Day # 3. Patient was laying in bed overall feeling little bit better but still has bilateral leg weakness developed urinary retention has a Jarrell catheter denies any chest pain no abdominal pain. Objective Data: Objective Information: T PRBPSpO2 Value36.95341205/9097% Date/Time05/04 8: 8: 8: 8: 8:26 Range(36.2C - 36.9C ) (71 - 93 ) (16 - 18 ) (139 - 162 )/ (89 - 95 ) (92% - 97% ) Highest temp of 36.9 C was recorded at 05/03 14:24 Pain reported at 05/04 8:26: 0 = None ---- Intake and Output ----- Mn/Dy/Year TimeIntakeOutputNet May 04, 2020 6:00 [id number] May 03, 2020 10:00 [id number] May 03, 2020 2:00 [id number] The Intake and Output Totals for the last 24 hours are: [facility] [id number] Physical Exam by System: Constitutional: Well developed, [...] Last Updated: 04-May-2020 12:20 by Nani Stanley) [facility] Daily Progress Note-Nephrolo gyon 05-04-2020 Daily Progress Note-Nephrology Service: Nephrology Subjective Data: LINDA PERALTA is a 75 year old Female who is Hospital Day # 3. renal function stable, remains on fluids, appetite decent but doesn't like the food, feeling better. Objective Data: Objective Information: T PRBPSpO2 Value36.76323227/8593% Date/Time05/04 14: 14: 14: 14: 14:39 Range(36.2C - 36.7C ) (71 - 93 ) (16 - 18 ) (139 - 156 )/ (85 - 92 ) (92% - 97% ) Pain reported at 05/04 8:26: 0 = None ---- Intake and Output ----- Mn/Dy/Year TimeIntakeOutputNet May 04, 2020 2:00 [id number] May 04, 2020 6:00 [id number] May 03, 2020 10:00 [id number] The Intake and Output Totals for the last 24 hours are: IntakeOutputNet [id number]\ Constitutional: Alert, in no acute distress HEENT: [...] partial nephrectomy, DVT/PE who was initially at [facility] for AMS, hypercalcemia and hypotension now transferred here. 1. ANGELA on CKD: previously hypotensive at [place], now hypertensive, also CRS as pt is [...] Updated: 04-May-2020 15:19 by Leigh Billy) Normal [facility] Daily Progress Note-Neurolog yon 05-04-2020 Daily Progress [...] better. Objective Data: Objective Information: T PRBPSpO2 Value36.48375267/8593% Date/Time05/04 14: 14: 14: 14: 14:39 Range(36.2C - 36.7C ) (71 - 93 ) (16 - 18 ) (139 - 156 )/ (85 - 92 ) (92% - 97% ) Pain reported at 05/04 8:26: 0 = None ---- Intake and Output ----- Mn/Dy/Year TimeIntakeOutputNet May 04, 2020 2:00 [id number] May 04, 2020 6:00 [id number] May 03, 2020 10:00 [id number] The Intake and Output Totals for the last 24 hours are: IntakeOutputNet [id number] Physical Exam by System: Neurological: The patient [...] kidney to her brother Sarcoidosis History of Lares's disease Gout Chronic kidney disease Hyperlipidemia Atopic [...] Updated: 04-May-2020 16:25 by Vicky Boyd) Normal [facility] Discharge Planning Hzup5qg 0 05-04-2020 Discharge Planning Note2 Discharge Planning: Planned Dispositionskilled/rehab /extended care [facility] 16no [place] of Choice Explainedyes Visit [facility] Is the Patient Being Discharged on an Opioidno Anticipated Discharge [id number]-[id number] Discharge Planning 05/04/2020 1229 TCC PATIENT WAS TRANSFERRED FROM [facility] TO [facility] ON MAY 01. PER DR. STANLEY, PATIENT WAS AT [facility] FOR 9 DAYS BEFORE SHE TRANSFERRED TO [facility]. PATIENT'S DX: HYPERCALCEMIA, CHANGED MENTAL STATUS, ANGELA, PNEUMONIA, URINARY RETENTION AND LEUKOCYSTOSIS. PT HAS BEEN ORDERED TO EVALUATE. I MET WITH THE PATIENT WHO STATES SHE LIVES WITH HER . AICHA, THE RN CARING FOR THE PATIENT, STATES THAT THE IS IN [facility] AND HAS CA WITH METS. THE PATIENT STATES SHE IS INDEPENDENT WITH ADLS. THE PATIENT CAN COOK, BUT HER DAUGHTER DOES THE CLEANING AND LAUNDRY. PATIENT DOES HAVE A WALKER. DAUGHTER WILL TAKE TO MD APPOINTMENTS. THE PATIENT STATES THAT SHE HAS HHC WITH [facility] AND HER PREFERENCE IS TO DC HOME AND CONTINUE SERVICES WITH [facility]. OLY, THE PCN, IS AWARE. [facility] WILL CONTINUE TO FOLLOW. TALIA JAMES RN 05/04/20 2:43 pcn- Notified by [facility]-talia that patient was previously active with [facility]. Provided home care list to from [facility] directory that includes agencies that are within [facility], patients insurance, meets patients medical needs, and in discharge zip code that patient prefers, and identifies each agencies [facility] star rating. Resumption of care referral submitted to [facility] and is currently under review. will await final d/c orders. SHANE Romero 05/05/2020 0950 [facility] PT/OT STILL NEEDS TO EVALUATE PATIENT. IACHA, THE RN CARING FOR THE PATIENT, STATES THAT THE WAS TO DC YESTERDAY OR TODAY FROM [facility] PER THE DAUGHTER. SHE IS HELPING CARE FOR HIM AND PLANS TO BE THERE WHEN THE MOM DC. AICHA IS AWARE I WILL TALK WITH THE DAUGHTER AND PATIENT AGAIN ONCE PT/OT EVALUTES. DR. SOUTH IS AWARE THAT PATIENT IS ACTIVE WITH [facility] AND AT THIS TIME, DC PLAN IS HOME WITH CONTINUED SERVICES WITH [facility]. AICHA ALSO INFORMED ME THAT PATIENT'S POTASSIUM WAS 2.9 TODAY AND PO SUPPLEMENTS ARE BEING GIVEN. PATIENT STILL HAS EDEMA FROM [place]. PATIENT IS ON IV LASIX WELL. [facility] WILL CONTINUE TO FOLLOW. TALIA JAMES RN 05/05/2020 1523 [facility] PT [facility] IS 11. I WENT TO REVISIT PATIENT AND SHE IS SLEEPING. I CALLED THE DAUGHTER AND POA, SOULEYMANE NAGI. SOULEYMANE STATES THAT HER DAD IS STILL IN [facility] AND IS NOT BEING DC TODAY AND MAY BE THERE A FEW MORE DAYS. THERAPY EVALUATE DISCUSSED WITH SOULEYMANE AND SHE STATES THAT SHE FEELS THE PATIENT NEEDS TO GO TO REHAB AT [place] UNTIL SHE IS ABLE TO BE MORE INDEPENDENT WITH MAYBE A 1 PERSON ASSIST. SHE HAS REQUESTED [facility] SHE HAS BEEN THERE BEFORE AND [address] [facility] [facility] [place]. DR. SOUTH IS AWARE OF DC PLAN. OLY, THE PCN, IS AWARE WELL AND WILL SEND TO [facility] FOR THEM TO EVALUATE TO SEE IF PATIENT IS APPROPRIATE FOR REHAB AND THEN PRECERT WILL BE NEEDED. [facility] WILL CONTINUE TO FOLLOW. TALIA JAMES RN 05/05/20 3:51 pcn- per talia-tcc pt. will need snf setting on d/c, she has spoken to dtr. who is requesting [facility]/snf unit as she has been there in the past, [facility] choice [facility] [place], referral sent via cnc to [facility]. SHANE Romero 05/05/20 4:15 pcn-spoke with admissions at [facility] who states they are full at this time and have no beds available. referral sent to dtr's second choice [facility] [place]. spoke with dtrAlaina comer to provide update. [...] DAYS. TALIA JAMES RN 05/07/20 12:50 [facility]cn-[facility] [place] has received ins. precert and able to [...] TCC 05/08/20 2:05 pcn-per [facility] [place] they have received ins. precert and able to accept pt. pt. will d/c this date to [facility] [place] snf at 5:30 pm via [facility] wheelchair van. spoke with pt. and dtr. who are aware and in agreement to transport and cost of transportation. SHANE Romero Assessment: Discharge Planning Assessment [id number] Primary Contact Name and NumberSouleymane Lopez - [phone] (daughter)(1) Stated Reason for Admissionpatient states I fell. (1) Arrived Fromhospital (1) Readmission Within the Last 30 Daysno previous admission in last 30 days Lives Withspouse(1) Living Arrangementshouse(1) Equipment Currently Used at [facility]/Environmental Concernsnone(1) [place] Services [facility] at [facility]note 3](1) Anticipated Changes Related to Illnessnone Equipment Needed After Dischargenone Anticipated Discharge Facility/Level of Care [facility] Care - Resumed Visit [facility] Ne[facility] from [facility] Electronic Signatures: Anette Roy (COOR) (Signed 07-May-2020 14:36) Authored: Discharge Planning Oly Leon (PCN) (Signed 08-May-2020 14:07) Authored: Discharge Planning Emmie James (COOR) (Signed 06-May-2020 13:59) Authored: Discharge Planning, Assessment Magnus Coley (COOR) (Signed 08-May-2020 14:08) Authored: Discharge Planning, Assessment Last Updated: 08-May-2020 14:08 by Magnus Coley (COOR) References: 1. Data Referenced From Patient Profile - Adult v2 02-May-2020 00:48 Normal [facility] EMR ADDONon 05-04-2020 ADDON CONFIRMATION REQUEST REC'D Normal [facility] Comment on above: Performed By: #### P R12 #### [facility] [address] [address] NR MRI L-SPINE WOon 05-05-19 21 NR MRI L-SPINE WO Patient Name: LINDA PERALTA STUDY: MRI T-SPINE WO; MRI L-SPINE WO; 05/04/2020 1:26 pm INDICATION: Urinary retention bilateral leg weakness. COMPARISON: CT chest abdomen and pelvis from 05/03/2020 ACCESSION NUMBER(S): [id number]; [id number] ORDERING CLINICIAN: NANI STANLEY TECHNIQUE: Sagittal T1 [...] pelvis. Electronically signed by: BRADLEY BECERRA MD [facility] NR MRI T-SPINE WOon 05-05-19 NR MRI T-SPINE WO Patient Name: LINDA PERALTA STUDY: MRI T-SPINE WO; MRI L-SPINE WO; 05/04/2020 1:26 pm INDICATION: Urinary retention bilateral leg weakness. COMPARISON: CT chest abdomen and pelvis from 05/03/2020 ACCESSION NUMBER(S): [id number]; [id number] ORDERING CLINICIAN: NANI STANLEY TECHNIQUE: Sagittal T1 [...] Electronically signed by: BRADLEY BECERRA MD Normal [facility] PROTEIN ELECTROPHORESIS + IM MUNOFIXATION, SERUMon 05-04-2020 GAMMA GLOBULIN 0.9 g/dL Normal 0.5 - 1.4 [facility] Comment on above: Performed By: #### I FE2 ####[facility] [place], [place] [id number] [place] [address] Albumin [Mass/Vol] 3.1 g/dL Low 3.4 - 5.0 [facility] Comment on above: Performed By: #### I FE2 ####[id number] [place] [address] ALPHA 1 GLOBULIN 0.3 g/dL Normal 0.2 - 0.6 [facility] Comment on above: Performed By: #### I FE2 ####[address] [id number] [place] [address] ALPHA 2 GLOBULIN 0.6 g/dL Normal 0.4 - 1.1 [facility] Comment on above: Performed By: #### I FE2 ####[address] [id number] [place] [address] BETA GLOBULIN 0.6 g/dL Normal 0.5 - 1.2 [facility] Comment on above: Performed By: #### I FE2 ####[id number] [place] [address] PT/INRon 05-04-2020 INR Coag (PPP) [Relative time] 2.3 {INR} High 0.9 - 1.1 [facility] Comment on above: Performed By: #### C MP #### [address] [id number] PT Coag (PPP) [Time] 27.5 s High 10.1 - 13.3 [facility] Comment on above: Performed By: #### C MP #### [address] [id number] BLOOD CULTURE, BACTERIALon 0 05-03-2020 BLOOD CULTURE, BACTERIAL PATIENT: LINDA PERALTA LOCATION: [facility] E BILL#: [id number] : 41 AGE: SEX: F ORDERED BY: NANI STANLEY SOURCE: Blood COLLECTED: 05/03/20 10:49 ANTIBIOTICS AT [place].: RECEIVED : 05/03/20 21:14 SITE: R E S U L T S BLOOD CULTURE, BACTERIAL FINAL 05/08/20 21:42 No Growth at 1 days No Growth at 2 days No Growth at 3 days No Growth at 4 days NO GROWTH - FINAL REPORT Normal [facility] Comment on above: Performed By: #### C A #### [address] [id number] BLOOD CULTURE, BACTERIAL PATIENT: LINDA PERALTA LOCATION: [address] BILL#: [id number] : 41 AGE: SEX: F ORDERED BY: NANI STANLEY SOURCE: Blood COLLECTED: 05/03/20 10:48 ANTIBIOTICS AT [place].: RECEIVED : 05/03/20 21:08 SITE: R E S U L T S BLOOD CULTURE, BACTERIAL FINAL 05/08/20 21:42 No Growth at 1 days No Growth at 2 days No Growth at 3 days No Growth at 4 days NO GROWTH - FINAL REPORT Normal [facility] Comment on above: Performed By: #### C A #### [address] [id number] CBCon 05-03-2020 Erythrocyte distribution width (RBC) [Ratio] 16.0 % High 11.5 - 14.5 [facility] Comment on above: Performed By: #### C MP #### [address] [id number] Hematocrit (Bld) [Volume fraction] 33.8 % Low 36.0 - 46.0 [facility] Comment on above: Performed By: #### C MP #### [address] [id number] Hemoglobin (Bld) [Mass/Vol] 11.1 g/dL Low 12.0 - 16.0 [facility] Comment on above: Performed By: #### C MP #### [address] [id number] MCHC (RBC) [Mass/Vol] 32.8 g/dL Normal 32.0 - 36.0 [facility] Comment on above: Performed By: #### C MP #### [address] [id number] MCV (RBC) [Entitic vol] 89 fL Normal 80 - 100 [facility] Comment on above: Performed By: #### C MP #### [address] [id number] Platelets (Bld) [#/Vol] 405 10*3/uL Normal 150 - 450 [facility] Comment on above: Performed By: #### C MP #### [address] [id number] RBC (Bld) [#/Vol] 3.81 x10E12/L Low 4.00 - 5.20 [facility] Comment on above: Performed By: #### C MP #### [address] [id number] WBC (Bld) [#/Vol] 22.9 10*3/uL High 4.4 - 11.3 [facility] Comment on above: Performed By: #### C MP #### [address] [id number] COMPREHENSIVE PANELon 2020 Albumin [Mass/Vol] 2.7 g/dL Low 3.4 - 5.0 [facility] Comment on above: Performed By: #### C MP #### [address] [id number] ALP [Catalytic activity/Vol] 67 U/L Normal 33 - 136 [facility] Comment on above: Performed By: #### C MP #### [address] [id number] ALT [Catalytic activity/Vol] 48 U/L High 7 - 45 [facility] Comment on above: Result Comment: Liz ents treated with Sulfasalazine may generate falsely decreased results for ALT. Performed By: #### C MP #### [address] [id number] Anion gap [Moles/Vol] 14 mmol/L Normal 10 - 20 [facility] Comment on above: Performed By: #### C MP #### [address] [id number] AST [Catalytic activity/Vol] 16 U/L Normal 9 - 39 [facility] Comment on above: Performed By: #### C MP #### [address] [id number] Bilirubin [Mass/Vol] 0.6 mg/dL Normal 0.0 - 1.2 [facility] Comment on above: Performed By: #### C MP #### [address] [id number] Calcium [Mass/Vol] 10.8 mg/dL High 8.6 - 10.3 [facility] Comment on above: Performed By: #### C MP #### [address] [id number] Chloride [Moles/Vol] 101 mmol/L Normal 98 - 107 [facility] Comment on above: Performed By: #### C MP #### [address] [id number] Creatinine [Mass/Vol] 2.39 mg/dL High 0.50 - 1.05 [facility] Comment on above: Performed By: #### C MP #### [address] [id number] GFR- AM. 24 mL/min/1.73m2 Abnormal >60 [facility] Comment on above: Result Comment: CALC ULATIONS OF ESTIMATED GFR ARE PERFORMED USING THE MDRD STUDY EQUATION FOR THE IDMS-TRACEABLE CREATININE METHODS. CLIN CHEM 2007;53:766-72 Performed By: #### C MP #### [address] [id number] GFR-NON AM. 20 mL/min/1.73m2 Abnormal >60 [facility] Comment on above: Performed By: #### C MP #### [address] [id number] Glucose [Mass/Vol] 93 mg/dL Normal 74 - 99 [facility] Comment on above: Performed By: #### C MP #### [address] [id number] HCO3 (Bld) [Moles/Vol] 26 mmol/L Normal 21 - 32 [facility] Comment on above: Performed By: #### C MP #### [address] [id number] Potassium [Moles/Vol] 3.3 mmol/L Low 3.5 - 5.3 [facility] Comment on above: Performed By: #### C MP #### [address] [id number] Protein [Mass/Vol] 4.8 g/dL Low 6.4 - 8.2 [facility] Comment on above: Performed By: #### C MP #### [address] [id number] Sodium [Moles/Vol] 138 mmol/L Normal 136 - 145 [facility] Comment on above: Performed By: #### C MP #### [address] [id number] Urea nitrogen [Mass/Vol] 86 mg/dL High 6 - 23 [facility] Comment on above: Performed By: #### C MP #### [address] [id number] CHEST ABDOMEN PELVIS WO C ONTRASTon 05-03-2020 CT CHEST ABDOMEN PELVIS WO CONTRAST Patient Name: LINDA PERALTA STUDY: CT CHEST ABDOMEN PELVIS WO CONTRAST; 05/03/2020 9:48 am INDICATION: pneumonia abnormal renal ultrasound hx of solitary kidney. COMPARISON: None. ACCESSION NUMBER(S): [id number] ORDERING CLINICIAN: NANI STANLEY TECHNIQUE: CT of the chest, abdomen and pelvis was performed. Contiguous axial images were obtained at 3 mm slice thickness through the chest, abdomen and pelvis. Coronal and sagittal reconstructions at 3 mm slice thickness were performed. No intravenous or oral contrast agents were administered. FINDINGS: Please note that the study is limited without intravenous contrast. CHEST: LUNG/PLEURA/LARGE AIRWAYS: Mbsa-mt-[id number] left and trace right pleural effusion. No [...] above. Electronically signed by: JARED GALLARDO MD [facility] Consult - Neuroon 05-03-2020 Consult - Neuro [...] The patient also has a history of Lares's disease Orthostatic hypotension She was on B12 [...] penicillins: Rash Objective: Objective Information: T PRBPSpO2 [id number]/9593% Date/Time05/02 19: 19: 19: 19: 19:16 Range(36.2C [...] fasciculations or involuntary movements are seen. On [place] testing, there is no pronation or drift. [...] RA Area A4C: 16.4 cm2 RA [place] A4C: 5.0 cm M-MODE MEASUREMENTS: Normal Ranges: [...] 1.2 m/s (0.6-0.9m/s) PV Max P.2 mmHg [id number] Tremayne Mcleod MD Electronically signed on 05/02/2020 [...] with you Consult Status: Consult Order ID: [id number] Electronic Signatures: Vicky Boyd) (Signed 02-May-2020 23:13) Authored: Service, History of Present Illness, Allergies, Objective, Assessment/Recommendatio ns, Note Completion Last Updated: 02-May-2020 23:13 by Vicky Boyd) [facility] Consult-Infectious Diseaseon 05-03-2020 Consult-Infectious Disease Service: Service: [...] penicillins: Rash Consult Status: Consult Order ID: [id number] Electronic Signatures: Di Estrada () (Signed 04-May-2020 06:05) Authored: Service, History of Present Illness, Allergies, Assessment/Recommendatio ns, Note Completion Last Updated: 04-May-2020 06:05 by Di Estrada () Normal [facility] Daily Progress Note-Medicine on 05-03-2020 Daily Progress Note-Medicine Service: Medicine Subjective Data: LINDA PERALTA is a 75 year old Female who is Hospital Day # 3. Patient laying in bed has fatigue denies any pain no chest pain or shortness of breath has nausea but no vomiting. Objective Data: Objective Information: T PRBPSpO2 Value36.94093445/8596% Date/Time05/03 7: 7: 7: 7: 7:33 Range(36.3C - 37.3C ) (94 - 95 ) (17 - 18 ) (132 - 176 )/ (85 - 106 ) (93% - 96% ) Highest temp of 37.3 C was recorded at 05/02 23:10 Pain reported at 05/03 10:44: 0 = None ---- Intake and Output ----- Mn/Dy/Year TimeIntakeOutputNet May 03, 2020 6:00 [id number] May 02, 2020 2:00 [id number] The Intake and Output Totals for the last 24 hours are: IntakeOutputNet [id number] Physical Exam by System: Constitutional: Well developed, [...] Mild to moderately elevated pulmonary artery pressure. [id number] Tremayne Mcleod MD Electronically signed on 05/02/2020 [...] Last Updated: 03-May-2020 11:18 by Nani Stanley) [facility] Daily Progress Note-Nephrolo gyon 05-03-2020 Daily Progress Note-Nephrology Service: Nephrology Subjective Data: LINDA PERALTA is a 75 year old Female who is Hospital Day # 3. renal function stable, Ca better, BP better. Objective Data: Objective Information: T PRBPSpO2 Value36.76027739/8596% Date/Time05/03 7: 7: 7: 7: 7:33 Range(36.3C - 37.3C ) (94 - 95 ) (17 - 18 ) (132 - 176 )/ (85 - 106 ) (93% - 96% ) Highest temp of 37.3 C was recorded at 05/02 23:10 Pain reported at 05/03 10:44: 0 = None ---- Intake and Output ----- [facility]Dy/[facility] May 03, 2020 6:00 [id number] May 02, 2020 2:00 [id number] The Intake and Output Totals for the last 24 hours are: IntakeOutputNet [id number] Constitutional: Alert, in no acute distress HEENT: [...] partial nephrectomy, DVT/PE who was initially at [place] for AMS, hypercalcemia and hypotension now transferred here. 1. ANGELA on CKD: previously hypotensive at [place], now hypertensive, also CRS as pt is [...] Last Updated: 03-May-2020 12:33 by Leigh Billy) [facility] Daily Progress Note-Neurolog yon 05-03-2020 Daily Progress Note-Neurology Service: Neurology Subjective Data: LINDA PERALTA is a 75 year old Female who is Hospital Day # 3. The patient examined feeling weak all over Overall intake output He is urinated Maalox did not help. She did not want Zofran or Phenergan. Objective Data: Objective Information: T PRBPSpO2 Value36.76142294/9296% Date/Time05/03 19: 19: 19: 19: 19:16 Range(36.3C - 37.3C ) (89 - 95 ) (16 - 18 ) (132 - 162 )/ (85 - 95 ) (93% - 96% ) Highest temp of 37.3 C was recorded at 05/02 23:10 Pain reported at 05/03 10:44: 0 = None ---- Intake and Output ----- Mn/Dy/Year TimeIntakeOutputNet May 03, 2020 2:00 [id number] May 03, 2020 6:00 [id number] The Intake and Output Totals for the last 24 hours are: IntakeOutputNet [id number] Physical Exam by System: Neurological: The patient [...] Reference Range: STRAW,YELLOW Appearance, Urine CLEAR Specific [place], Urine 1.008 pH, Urine 6.0 Protein, Urine [...] Level 1.8 Comprehensive Metabolic Panel Trending View [id number] 05:31:00 02-May-2020 02:22:00 Glucose, Serum93 184 H NA138 138 K3.3 L 4.2 CL101 101 Bicarbonate, Serum26 26 Anion Gap, Serum14 15 BUN86 H 84 H CREAT2.39 H 2.31 H GFR-Non Dhyonuvy60 A 20 A GFR- Nplfnwrn60 A 24 A Calcium, Serum10.8 H 12.3 [...] Updated: 03-May-2020 20:53 by Vicky Boyd) Normal [facility] FOLATE, SERUMon 05-03-2020 Folate [Mass/Vol] 13.5 ng/mL Normal >5.0 [facility] Comment on above: Result Comment: Low <3.4 Borderline 3.4-5.0 Normal >5.0 . Patients receiving more than 5 mg/day of biotin may have interference in test results. A sample should be taken no sooner than eight hours after previous dose. Contact the testing laboratory for additional information. Performed By: #### C MP #### [address] [id number] LACTATEon 05-03-2020 Lactate [Moles/Vol] 1.8 mmol/L Normal 0.4 - 2.0 [facility] Comment on above: Result Comment: Nadia puncture immediately after or during the administration of Metamizole may lead to falsely low results. Testing should be performed immediately prior to Metamizole dosing. Performed By: #### C BC #### [facility] [address] [place], [place] [id number] PARATHYROID HORMONE,INTACTon 05-03-2020 PARATHYROID HORMONE,INTACT 19.6 pg/mL Normal 12.0 - 88.0 [facility] Comment on above: Performed By: #### P TH ####[facility] [place], [place] [id number] PT/INRon 05-03-2020 INR Coag (PPP) [Relative time] 2.8 {INR} High 0.9 - 1.1 [facility] Comment on above: Performed By: #### P TINR ####[facility] [place] [address] [id number] PT Coag (PPP) [Time] 33.4 s High 10.1 - 13.3 [facility] Comment on above: Performed By: #### P TINR ####[facility] [place] [address] [id number] UA MICROSCOPICon 05-03-2020 MUCUS 1+ /LPF Normal [facility] Comment on above: Performed By: #### P R12 #### [facility] [address] [place] [address] RBC 9 /HPF Abnormal 0-5 [facility] Comment on above: Performed By: #### P R12 #### [facility] [address] [place] [address] SQUAMOUS EPITH. CELLS 2 /HPF Normal [facility] Comment on above: Performed By: #### P R12 #### [facility] [address] [place] [address] WBC 7 /HPF Abnormal 0-5 [facility] Comment on above: Performed By: #### P R12 #### [facility] [address] [place] [address] URINALYSISon 05-03-2020 Appearance (U) Canceled Normal [facility] Comment on above: Order Comment: TEST URINALYSIS WAS CANCELLED, 05/03/2020 14:06 DUPLICATE ORDER. Performed By: #### U A ####[address] [id number] ASCORBIC ACID Canceled Normal [facility] Comment on above: Order Comment: TEST URINALYSIS WAS CANCELLED, 05/03/2020 14:06 DUPLICATE ORDER. Result Comment: Conc entrations > = 20 mg/dL of ascorbic acid can be expected to cause strong interference in the reactions testing for glucose, nitrite and blood. It is recommended to discontinue Vitamin C administration and retest in 10 hours. Performed By: #### U A ####[address] [id number] Bilirubin (U) [Mass/Vol] Canceled Normal [facility] Comment on above: Order Comment: TEST URINALYSIS WAS CANCELLED, 05/03/2020 14:06 DUPLICATE ORDER. Performed By: #### U A ####[address] [id number] BLOOD Canceled Normal [facility] Comment on above: Order Comment: TEST URINALYSIS WAS CANCELLED, 05/03/2020 14:06 DUPLICATE ORDER. Performed By: #### U A ####[address] [id number] Color (U) Canceled Normal [facility] Comment on above: Order Comment: TEST URINALYSIS WAS CANCELLED, 05/03/2020 14:06 DUPLICATE ORDER. Performed By: #### U A ####[address] [id number] Glucose [Mass/Vol] Canceled Normal [facility] Comment on above: Order Comment: TEST URINALYSIS WAS CANCELLED, 05/03/2020 14:06 DUPLICATE ORDER. Performed By: #### U A ####[address] [id number] Ketones Ql (U) Canceled Normal [facility] Comment on above: Order Comment: TEST URINALYSIS WAS CANCELLED, 05/03/2020 14:06 DUPLICATE ORDER. Performed By: #### U A ####[address] [id number] Leukocyte esterase Test strip Ql (U) Canceled Normal [facility] Comment on above: Order Comment: TEST URINALYSIS WAS CANCELLED, 05/03/2020 14:06 DUPLICATE ORDER. Performed By: #### U A ####[address] [id number] Nitrite Ql (U) Canceled Normal [facility] Comment on above: Order Comment: TEST URINALYSIS WAS CANCELLED, 05/03/2020 14:06 DUPLICATE ORDER. Performed By: #### U A ####[address] [id number] pH (Bld) Canceled Normal [facility] Comment on above: Order Comment: TEST URINALYSIS WAS CANCELLED, 05/03/2020 14:06 DUPLICATE ORDER. Performed By: #### U A ####[address] [id number] Protein (U) [Mass/Vol] Canceled Normal [facility] Comment on above: Order Comment: TEST URINALYSIS WAS CANCELLED, 05/03/2020 14:06 DUPLICATE ORDER. Performed By: #### U A ####[address] [id number] Specific gravity (U) [Rel density] Canceled Normal [facility] Comment on above: Order Comment: TEST URINALYSIS WAS CANCELLED, 05/03/2020 14:06 DUPLICATE ORDER. Performed By: #### U A ####[address] [id number] Urobilinogen Qn (U) Canceled Normal [facility] Comment on above: Order Comment: TEST URINALYSIS WAS CANCELLED, 05/03/2020 14:06 DUPLICATE ORDER. Performed By: #### U A ####[address] [id number] URINALYSIS WITH CULTURE IF I NDICATEDon 05-03-2020 Appearance (U) CLEAR Normal CLEAR [facility] Comment on above: Performed By: #### C MP #### [address] [id number] Bilirubin (U) [Mass/Vol] Negative Normal NEGATIVE [facility] Comment on above: Performed By: #### C MP #### [address] [id number] BLOOD SMALL(1+) Abnormal NEGATIVE [facility] Comment on above: Performed By: #### C MP #### [address] [id number] Color (U) STRAW Normal STRAW,YELLOW [facility] Comment on above: Performed By: #### C MP #### [address] [id number] Glucose [Mass/Vol] Negative Normal NEGATIVE [facility] Comment on above: Performed By: #### C MP #### [address] [id number] Ketones Ql (U) Negative Normal NEGATIVE [facility] Comment on above: Performed By: #### C MP #### [address] [id number] Leukocyte esterase Test strip Ql (U) SMALL (1+) Abnormal NEGATIVE [facility] Comment on above: Performed By: #### C MP #### [address] [id number] Nitrite Ql (U) Negative Normal NEGATIVE [facility] Comment on above: Performed By: #### C MP #### [address] [id number] pH (Bld) 6.0 Normal 5.0 - 8.0 [facility] Comment on above: Performed By: #### C MP #### [address] [id number] Protein (U) [Mass/Vol] Negative Normal NEGATIVE [facility] Comment on above: Performed By: #### C MP #### [address] [id number] Specific gravity (U) [Rel density] 1.008 Normal 1.005 - 1.035 [facility] Comment on above: Performed By: #### C MP #### [address] [id number] Urobilinogen Qn (U) <2.0 Normal 0.0 - 1.9 [facility] Comment on above: Performed By: #### C MP #### [address] [place] [id number] Lab Specimen Source Normal [facility] Comment on above: Performed By: #### C MP #### [address] [id number] Performed By: #### P R12 #### [facility] [address] [place] [address] URINE CULTURE,BACTERIALon URINE CULTURE,BACTERIAL PATIENT: LINDA PERALTA LOCATION: [address] [id number] : 41 AGE: SEX: F ORDERED BY: NANI STANLEY SOURCE: URINE COLLECTED: 05/03/20 11:12 ANTIBIOTICS AT [facility].: RECEIVED : 05/03/20 21:18 SITE: R E S U L T S URINE CULTURE,BACTERIAL FINAL 05/04/20 14:08 NO GROWTH Normal [facility] Comment on above: Performed By: #### P R12 #### [facility] [address] [place] [id number] US CAROTID BILATERAL DUPLEXo n 05-03-2020 US CAROTID BILATERAL DUPLEX Patient Name: LINDA PERALTA STUDY: US CAROTID BILATERAL DUPLEX; 05/03/2020 10:18 am INDICATION: Change in the mental status question of strokes, gait ataxia and falls, fainting spells. COMPARISON: None. ACCESSION NUMBER(S): [id number] ORDERING CLINICIAN: VICKY BOYD FINDINGS: Duplex scan [...] Electronically signed by: VICKY BOYD MD Normal [facility] Admission Risk Screen - Adul ton 05-02-2020 [...] DNR-CCA Availabilityplaced on chart DNR-CCA Placed on [id number] Advanced Directive Commentno intubation [place]pie Fall Screen: [...] instruction; written material Cultural Considerationsnone Developmental Considerationsnone Mandaeism Considerationsnone Learning Assessment (Other Learner): Other learner availableno Depression Screen: During the past month, have you often been bothered by feeling down, depressed or hopelessyes is sick (dx of [place]) During the past month, have you often had little interest or pleasure in doing thingsno Have you had any thoughts of harming anyone elseno [place] Suicide: Risk Screen Not Applicable/Able to Answerable to be screened In the Past Month: Have you wished you were or could go to sleep and not wake upno In the Past Month: Have you had any actual thoughts of killing yourselfno Lifetime: Have you ever done, started to do, or prepared to do anything to end your lifeno [place] Suicide Risknegative Adult Nutrition Screen: Have you [...] Spiritual Screen: Are there any cultural, spiritual, islam practices/values/needs that are important for us to knowno CAGE: Is this an injured patient at a Trauma Center ([facility] [facility]/[facility]): no Vaccinations: Vaccination - Influenza Vaccination Screen: [...] 02-May-2020 01:37 by Nehemias Mercado (RN) Normal [facility] BNPon 05-02-2020 Natriuretic peptide B (Bld) [Mass/Vol] 1665 pg/mL High 0 - 99 [facility] Comment on above: Result Comment: . <1 00 pg/mL - Heart failure unlikely 100-299 pg/mL - Intermediate probability of acute heart . failure exacerbation. Correlate with clinical . context and patient history. >=300 pg/mL - Heart Failure likely. Correlate with clinical . context and patient history. BNP testing is performed using different testing methodology at [facility] than at other [facility]. Direct result comparisons should only be made within the same method. Performed By: #### C BC #### [address] [id number] C-REACTIVE PROTEINon 021 CRP [Mass/Vol] 1.41 mg/dL Abnormal [facility] Comment on above: Result Comment: REF VALUE < 1.00 Performed By: #### C MP #### [address] [id number] CALCIUMon 05-02-2020 Calcium [Mass/Vol] Canceled Normal [facility] Comment on above: Order Comment: TEST CALCIUM WAS CANCELLED, 05/02/2020 12:20 added per RN 05/02/2020 12:20. Performed By: #### C A #### [address] [id number] CALCIUM, IONIZEDon 1 CALCIUM,IONIZED 1.71 mmol/L High 1.10 - 1.33 [facility] Comment on above: Performed By: #### C MP #### [address] [id number] CBC AND DIFFERENTIALon 05-02 % AUTOMATED IMMATURE GRAN 5.6 % High 0.0 - 0.9 [facility] Comment on above: Result Comment: Linda ture Granulocyte Count (IG) includes promyelocytes, myelocytes and metamyelocytes but does not include bands. Percent differential counts (%) should be interpreted in the context of the absolute cell counts (cells/L). Performed By: #### C BC #### [address] [id number] DIFFERENTIAL SEE MANUAL DIFF Normal [facility] Comment on above: Performed By: #### C BC #### [address] [id number] Erythrocyte distribution width (RBC) [Ratio] 15.7 % High 11.5 - 14.5 [facility] Comment on above: Performed By: #### C BC #### [address] [id number] Hematocrit (Bld) [Volume fraction] 34.1 % Low 36.0 - 46.0 [facility] Comment on above: Performed By: #### C BC #### [address] [id number] Hemoglobin (Bld) [Mass/Vol] 11.2 g/dL Low 12.0 - 16.0 [facility] Comment on above: Performed By: #### C BC #### [address] [id number] MCHC (RBC) [Mass/Vol] 32.8 g/dL Normal 32.0 - 36.0 [facility] Comment on above: Performed By: #### C BC #### [address] [id number] MCV (RBC) [Entitic vol] 90 fL Normal 80 - 100 [facility] Comment on above: Performed By: #### C BC #### [address] [id number] Platelets (Bld) [#/Vol] 378 10*3/uL Normal 150 - 450 [facility] Comment on above: Performed By: #### C BC #### [address] [id number] RBC (Bld) [#/Vol] 3.81 x10E12/L Low 4.00 - 5.20 [facility] Comment on above: Performed By: #### C BC #### [address] [id number] WBC (Bld) [#/Vol] 17.9 10*3/uL High 4.4 - 11.3 [facility] Comment on above: Performed By: #### C BC #### [address] [id number] CHEST 2 VIEW PA AND LATon CHEST 2 VIEW PA AND LAT Patient Name: LINDA PERALTA STUDY: TH CHEST 2 VIEW PA AND LAT; 05/02/2020 12:49 pm INDICATION: hypoxia. COMPARISON: None. ACCESSION NUMBER(S): [id number] ORDERING CLINICIAN: NANI STANLEY FINDINGS: CARDIOMEDIASTINAL SILHOUETTE AND VASCULATURE: Cardiac size: Mild cardiomegaly Aortic shadow: Within normal limits considering technique Mediastinal contours: Within normal limits considering technique Pulmonary vasculature: The central vasculature is unremarkable LUNGS: There is opacification at the left lower lung probably from [id number] pleural effusion and underlying atelectasis or consolidation. [...] Electronically signed by: ALBERTO HARRIS MD Normal [facility] COAGULATION SCREENon 021 aPTT Coag (Bld) [Time] 25 s Normal 25 - 35 [facility] Comment on above: Result Comment: THE APTT IS NO LONGER USED FOR MONITORING UNFRACTIONATED HEPARIN THERAPY. FOR MONITORING HEPARIN THERAPY, USE THE HEPARIN ASSAY. Performed By: #### C MP #### [address] [id number] INR Coag (PPP) [Relative time] 2.4 {INR} High 0.9 - 1.1 [facility] Comment on above: Performed By: #### C MP #### [address] [id number] PT Coag (PPP) [Time] 28.4 s High 10.1 - 13.3 [facility] Comment on above: Performed By: #### C MP #### [address] [id number] COMPREHENSIVE PANELon 2020 Albumin [Mass/Vol] 3.0 g/dL Low 3.4 - 5.0 [facility] Comment on above: Performed By: #### C MP #### [address] [id number] ALP [Catalytic activity/Vol] 79 U/L Normal 33 - 136 [facility] Comment on above: Performed By: #### C MP #### [address] [id number] ALT [Catalytic activity/Vol] 64 U/L High 7 - 45 [facility] Comment on above: Result Comment: Liz ents treated with Sulfasalazine may generate falsely decreased results for ALT. Performed By: #### C MP #### [address] [id number] Anion gap [Moles/Vol] 15 mmol/L Normal 10 - 20 [facility] Comment on above: Performed By: #### C MP #### [address] [id number] AST [Catalytic activity/Vol] 18 U/L Normal 9 - 39 [facility] Comment on above: Performed By: #### C MP #### [address] [id number] Bilirubin [Mass/Vol] 0.7 mg/dL Normal 0.0 - 1.2 [facility] Comment on above: Performed By: #### C MP #### [address] [id number] Calcium [Mass/Vol] 12.3 mg/dL High 8.6 - 10.3 [facility] Comment on above: Performed By: #### C MP #### [address] [id number] Chloride [Moles/Vol] 101 mmol/L Normal 98 - 107 [facility] Comment on above: Performed By: #### C MP #### [address] [id number] Creatinine [Mass/Vol] 2.31 mg/dL High 0.50 - 1.05 [facility] Comment on above: Performed By: #### C MP #### [address] [id number] GFR- AM. 24 mL/min/1.73m2 Abnormal >60 [facility] Comment on above: Result Comment: CALC ULATIONS OF ESTIMATED GFR ARE PERFORMED USING THE MDRD STUDY EQUATION FOR THE IDMS-TRACEABLE CREATININE METHODS. CLIN CHEM 2007;53:766-72 Performed By: #### C MP #### [address] [id number] GFR-NON AM. 20 mL/min/1.73m2 Abnormal >60 [facility] Comment on above: Performed By: #### C MP #### [address] [id number] Glucose [Mass/Vol] 184 mg/dL High 74 - 99 [facility] Comment on above: Performed By: #### C MP #### [address] [id number] HCO3 (Bld) [Moles/Vol] 26 mmol/L Normal 21 - 32 [facility] Comment on above: Performed By: #### C MP #### [address] [id number] Potassium [Moles/Vol] 4.2 mmol/L Normal 3.5 - 5.3 [facility] Comment on above: Performed By: #### C MP #### [address] [id number] Sodium [Moles/Vol] 138 mmol/L Normal 136 - 145 [facility] Comment on above: Performed By: #### C MP #### [address] [id number] Urea nitrogen [Mass/Vol] 84 mg/dL High 6 - 23 [facility] Comment on above: Performed By: #### C MP #### [address] [id number] CREATINE KINASEon 05-02-2020 CK [Catalytic activity/Vol] 28 U/L Normal 0 - 215 [facility] Comment on above: Performed By: #### C A #### [address] [id number] Consult-Nephrologyon 021 Consult-Nephrology Service: Service: Nephrology Consult: Consult requested by (Attending Name): Nani Stanley Reason: ANGELA History of Present Illness: HPI: LINDA PERALTA is a 75 year old Female w/ history s/f HTN, CAD, moris's disease, solitary kidney c/b RCC s/p partial nephrectomy, 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 Pt states she sees a fire information officer Dr. Tarango PMHx: DVT/PE on warfarin, renal [...] penicillins: Rash Objective: Objective Information: T PRBPSpO2 Value36.60565045/8396% Date/Time05/02 8: 10: 8: 10: 8:30 Range(36.2C [...] partial nephrectomy, DVT/PE who was initially at [facility] for AMS, hypercalcemia and hypotension now transferred here. 1. ANGELA on CKD: previously hypotensive at [place], now hypertensive, also CRS as pt is [...] to follow Consult Status: Consult Order ID: [id number] Electronic Signatures: Leigh Billy) (Signed 02-May-2020 12:52) Authored: Service, History of Present Illness, Allergies, Objective, Assessment/Recommendatio ns, Note Completion Last Updated: 02-May-2020 12:52 by Leigh Billy) Normal [facility] Daily Progress Note-Medicine on 05-02-2020 Daily Progress [...] changes. Objective Data: Objective Information: T PRBPSpO2 Value36.00903641/8396% Date/Time05/02 8: 10: 8: 10: 8:30 Range(36.2C [...] DVT -Appears she received fluids, furosemide, pamidronate [facility] -previously reported extreme elevation D > [...] Signature/Cosignature/At testation: Note Completion: I am a: BROKERAGE CLERK Student BROKERAGE CLERK Student Julieth was present with the BROKERAGE CLERK student who participated in the documentation of this note. I have personally seen and re-examined the patient and performed the medical decision-making components (assessment and plan of care). I have reviewed the BROKERAGE CLERK student documentation and verified the findings in the note as written with additions or exceptions as stated in the body of this note. I personally evaluated the patient [id number] Comments/ Additional Findings Patient was seen and [...] Updated: 02-May-2020 16:15 by Nani Stanley) Normal [facility] History and Physicalon 05-02 History and Physical [...] a day. Objective: Objective Information: T PRBPSpO2 Value36.15942198/80643% Date/Time05/02 4: 4: 19: 4: 4:22 Range(36.3C [...] to decline elective intubation order entered in [facility] to reflect pt's wishes Signatures/Attestation/C ertification: Note Completion Attending Provider Inpatient Certification StatementI certify this patients need for inpatient care based on the above documentation including; the order to admit as inpatient, the anticipated length of stay, diagnosis, problem list and plan of care, and discharge plan. Admission Order - View OnlyCurrent Admission Order. Admit to Inpatient Adult Community Transfer to, [facility]: [address] Admitting Diagnosis, E83.52 Hypercalcemia , Attending [...] Updated: 02-May-2020 12:26 by Leigh Billy) Normal [facility] LACTATEon 05-02-2020 Lactate [Moles/Vol] 1.8 mmol/L Normal 0.4 - 2.0 [facility] Comment on above: Result Comment: Nadia puncture immediately after or during the administration of Metamizole may lead to falsely low results. Testing should be performed immediately prior to Metamizole dosing. Performed By: #### C BC #### [facility] [address] [place], [place] [id number] MAGNESIUMon 05-02-2020 Magnesium [Mass/Vol] 2.00 mg/dL Normal 1.60 - 2.40 [facility] Comment on above: Performed By: #### M G ####[facility] [place], [place] [id number] MANUAL DIFFERENTIALon 2020 % EOSINOPHIL 0.0 % Normal 0.0 - 6.0 [facility] Comment on above: Performed By: #### P R12 #### [facility] [address] [place] [address] % METAMYELOCYTE 3.0 % Normal 0.0 - 0.0 [facility] Comment on above: Performed By: #### P R12 #### [facility] [address] [place] [address] % MYELOCYTE 2.0 % Normal 0.0 - 0.0 [facility] Comment on above: Performed By: #### P R12 #### [facility] [address] [place] [address] % SEG NEUTROPHIL 81.0 % Normal 40.0 - 80.0 [facility] Comment on above: Result Comment: Perc ent differential counts (%) should be interpreted in the context of the absolute cell counts (cells/L). Performed By: #### P R12 #### [facility] [address] [place] [address] ANC 14.86 x10E9/L High 1.60 - 5.50 [facility] Comment on above: Performed By: #### P R12 #### [facility] [address] [place] [address] Band form neutrophils/100 WBC (Bld) 2.0 % Normal 0.0 - 5.0 [facility] Comment on above: Performed By: #### P R12 #### [facility] [address] [place] [address] BAND NEUTROPHIL 0.36 x10E9/L Normal 0.00 - 0.50 [facility] Comment on above: Performed By: #### P R12 #### [facility] [address] [place] [address] BASOPHIL 0.00 x10E9/L Normal 0.00 - 0.10 [facility] Comment on above: Performed By: #### P R12 #### [facility] [address] [place] [address] Basophils/100 WBC (Bld) 0.0 % Normal [facility] Comment on above: Performed By: #### P R12 #### [facility] [address] [place] [address] EOSINOPHIL 0.00 x10E9/L Normal 0.00 - 0.40 [facility] Comment on above: Performed By: #### P R12 #### [facility] [address] [place] [address] LYMPHOCYTE 1.07 x10E9/L Normal 0.80 - 3.00 [facility] Comment on above: Performed By: #### P R12 #### [facility] [address] [place] [address] Lymphocytes/100 WBC (Bld) 6.0 % Normal 13.0 - 44.0 [facility] Comment on above: Performed By: #### P R12 #### [facility] [address] [place] [address] Metamyelocytes/100 WBC (Bld) 0.54 x10E9/L Abnormal 0.00 - 0.00 [facility] Comment on above: Performed By: #### P R12 #### [facility] [address] [place] [address] MONOCYTE 1.07 x10E9/L High 0.05 - 0.80 [facility] Comment on above: Performed By: #### P R12 #### [facility] [address] [place] [address] Monocytes/100 WBC (Bld) 6.0 % Normal 2.0 - 10.0 [facility] Comment on above: Performed By: #### P R12 #### [facility] [address] [place] [address] MYELOCYTE 0.36 x10E9/L Abnormal 0.00 - 0.00 [facility] Comment on above: Performed By: #### P R12 #### [facility] [address] [place] [address] SEG NEUTROPHIL 14.50 x10E9/L High 1.60 - 5.00 [facility] Comment on above: Performed By: #### P R12 #### [facility] [address] [place] [address] OSMOLALITY, SERUMon 05-03-19 21 OSMOLALITY, SERUM 322 mOsm/kg H2O High 280 - 300 [facility] Comment on above: Performed By: #### O SMOL ####[facility] [place], [place] [id number] Order Reconciliationon 05-02 Order Reconciliation Page 1 [...] 1000 milligram(s) orally every 6 hours, As Qaqfya21-Nrw-2558 UNKNOWN UNKNOWN Reviewed and Held atorvastatin 10 mg oral tablet 1 tab(s) orally once a day (at bedtime) UNKNOWN Atorvastatin Tablet (LIPITOR)DOSE = 10 mg Oral Dailyatorvastatin 10 mg oral tablet continued as the inpatient order Atorvastatin Calmoseptine 0.44%-20.6% topical ointment Apply topically to affected area 2 times a day, As [id number]- 2021 PM Menthol 0.44% - Zinc Oxide [...] oral tablet 1 tab(s) orally once a [id number]-Ldy-9301 UNKNOWN UNKNOWN Reviewed and Held dupilumab 300 milligram(s) subcutaneous every 2 ytzkw13-[id number]-3377YELNYFA UNKNOWN Reviewed and Held Florinef Acetate 0.1 mg oral tablet 1 tab(s) orally once a zod37-Bdr-7107 UNKNOWN UNKNOWN Fludrocortisone Tablet (FLORINEF)DOSE = 0.1 [...] oral tablet 1 tab(s) orally once a feo57-Bwe-[id number] UNKNOWN Hydrocortisone Tablet (CORTEF)DOSE = 10 mg Oral Dailyhydrocortisone 10 mg oral tablet continued as the inpatient order Hydrocortisone hydrocortisone 20 mg oral tablet 1 tab(s) orally once a gmm08-Dbx-5538BIYXHEU UNKNOWN Hydrocortisone Tablet (CORTEF)DOSE = 20 mg Oral Daily 1800 hydrocortisone 20 mg oral tablet continued as the inpatient order Hydrocortisone lactobacillus acidophilus-lactobacillu s casei oral delayed release capsule 1 cap(s) orally once a lpl81-Kpr-3601PKOXVTG UNKNOWN Reviewed and Held nitroglycerin 0.4 mg sublingual tablet 1 tab(s) sublingual every 5 minutes, As Knbuif69-Syv-1561LRJUNST UNKNOWN Nitroglycerin SubLingual Tablet (NITROSTAT)DOSE = 0.4 mg SubLingual Every 5 Minutes, PRN Anginanitroglycerin 0.4 mg sublingual tablet continued as the inpatient order Nitroglycerin SubLingual warfarin 2.5 mg oral tablet 1 tab(s) orally once a apy35-Vyb-731217-Qdo-632 1 PM Blood in Urine, Monitor for [...] oral tablet 1 tab(s) orally once a mcu35-Xvh-762220-Jxq-483 1 PM Bleeding, Monitor for Call physician [...] oral tablet 1 tab(s) orally once a gdn55-Roj-593763-Und-753 1 PM Nursing to ensure Your Guide [...] oral tablet 1 tab(s) orally once a ppr52-[id number]-Ywi-732 1 PM Communication Order INR Goal 2 [...] oral tablet 1 tab(s) orally once a [id number]-[id number]-Dow-389 1 PM Warfarin Tablet (COUMADIN)DOSE = 2.5 [...] mL Run at: 100 mL/hr IntraVenous Normal [facility] PARATHYROID HORMONE,INTACTon 05-02-2020 PARATHYROID HORMONE,INTACT Canceled Normal [facility] Comment on above: Order Comment: TEST PARATHYROID HORMONE,INTACT WAS CANCELLED, 05/02/2020 12:20 added per RN05/02/2020 12:20. Performed By: #### P TH ####[address] [id number] PHOSPHORUSon 05-02-2020 Phosphate [Mass/Vol] 6.4 mg/dL High 2.5 - 4.9 [facility] Comment on above: Result Comment: The performance characteristics of phosphorus testing in heparinized plasma have been validated by the individual laboratory site where testing is performed. Testing on heparinized plasma is not approved by the FDA; however, such approval is not necessary. Performed By: #### C MP #### [address] [id number] PREALBUMINon 05-02-2020 Prealbumin [Mass/Vol] 28.0 mg/dL Normal 18.0 - 40.0 [facility] Comment on above: Performed By: #### C BC #### [address] [id number] PROTEIN ELECTROPHORESIS + IM MUNOFIXATION, SERUMon 05-02-2020 Protein [Mass/Vol] 5.5 g/dL Low 6.4 - 8.2 [facility] Comment on above: Performed By: #### I FE2 ####[id number] [place] [address] Performed By: #### C MP #### [address] [id number] PROTEIN ELECTROPHORESIS,SERU 05-02-2020 Albumin [Mass/Vol] Canceled Normal [facility] Comment on above: Order Comment: TEST PROTEIN ELECTROPHORESIS,SERUM WAS CANCELLED, 05/02/2020 12:20 added per RN 05/02/2020 12:20. Performed By: #### S PE2 #### [facility] [address] [place] [address] ALPHA 1 GLOBULIN Canceled Normal [facility] Comment on above: Order Comment: TEST PROTEIN ELECTROPHORESIS,SERUM WAS CANCELLED, 05/02/2020 12:20 added per RN 05/02/2020 12:20. Performed By: #### S PE2 #### [facility] [address] [place] [address] ALPHA 2 GLOBULIN Canceled Normal [facility] Comment on above: Order Comment: TEST PROTEIN ELECTROPHORESIS,SERUM WAS CANCELLED, 05/02/2020 12:20 added per RN 05/02/2020 12:20. Performed By: #### S PE2 #### [facility] [address] [place] [address] BETA GLOBULIN Canceled Normal [facility] Comment on above: Order Comment: TEST PROTEIN ELECTROPHORESIS,SERUM WAS CANCELLED, 05/02/2020 12:20 added per RN 05/02/2020 12:20. Performed By: #### S PE2 #### [facility] [address] [place] [address] GAMMA GLOBULIN Canceled Normal [facility] Comment on above: Order Comment: TEST PROTEIN ELECTROPHORESIS,SERUM WAS CANCELLED, 05/02/2020 12:20 added per RN 05/02/2020 12:20. Performed By: #### S PE2 #### [facility] [address] [place] [address] INTERPRETATION Canceled Normal [facility] Comment on above: Order Comment: TEST PROTEIN ELECTROPHORESIS,SERUM WAS CANCELLED, 05/02/2020 12:20 added per RN 05/02/2020 12:20. Performed By: #### S PE2 #### [facility] [address] [place] [address] Protein [Mass/Vol] Canceled Normal [facility] Comment on above: Order Comment: TEST PROTEIN ELECTROPHORESIS,SERUM WAS CANCELLED, 05/02/2020 12:20 added per RN 05/02/2020 12:20. Performed By: #### S PE2 #### [facility] [address] [place] [address] Order Comment: TEST PTH RELATED PROTEIN WAS CANCELLED, 05/02/2020 12:20 added per RN05/02/2020 12:20. Performed By: #### P R12 #### [facility] [address] [place] [address] Patient Profile - Adult v2on 05-02-2020 Patient Profile - Adult v2 Profile: Initial Info: How to be AddressedLinda Spoken Language PreferredEnglish Source of Informationhealth record; patient Stated Reason for Admissionpatient states I fell. Primary Contact Name and NumberSouleymane Lopez - [phone] (daughter) Other Contact Names and NumbersWilman Peralta - [phone] - Next of Kin - Patients Patient Belongingsnone Arrived Fromspital Medications Brought to Hospitalno Are you currently using the Personal Electronic Health Record or [employer] Wants Family/Rep Notified of Admissionyes, primary contact Notify PCPnotify PCP Informed of Patient Visiting Rightsyes General Health: Weight in kg74.5 kilogram(s) Weight in lms877.2 pound(s) Weight Methodactual (measured) Scale Typebed Height [...] Lives Withspouse Living Arrangementshouse Services [facility] [place]tic[place] Significant IndicatorsComplete Information Review: Allergies, Home Meds and Significant Events have been Reviewed and Verified with Patient/Familyyes ALLERGY, INTOLERANCE, ADVERSE EVENT: Allergies: ciprofloxacin: Drug, Rash, Active penicillins: Drug Category, Rash, Active Electronic Signatures: Nehemias Mercado (ROSS) (Signed 02-May-2020 01:28) Authored: Initial Info, General Health, RSP Based Care, Substance, Health Mgmt, Relationship/Environ, Additional Information Last Updated: 02-May-2020 01:28 by Nehemias Mercado (ROSS) Normal [facility] RED CELL MORPHOLOGYon 2020 RBC morphology finding Nom (Bld) SEE COMMENT Normal [facility] Comment on above: Result Comment: NO S IGNIFICANT RBC ABNORMALITIES SEEN ON SMEAR REVIEW. Performed By: #### C A #### [facility] [address] [place], [place] [id number] RETICULOCYTESon 05-02-2020 RETIC # 0.054 x10E12/L Normal 0.017 - 0.110 [facility] Comment on above: Performed By: #### R ETIC ####[facility] [place], [place] [id number] RETIC % 1.4 % Normal 0.5 - 2.0 [facility] Comment on above: Performed By: #### R ETIC ####[facility] [place], [place] [id number] RETIC-HB 37 pg Normal 28 - 38 [facility] Comment on above: Performed By: #### R ETIC ####[place] [address] [place], [place] [id number] SPE PATH REVIEWon 05-02-2020 PATH REVIEW-SPE Canceled Normal [facility] Comment on above: Order Comment: TEST SPE PATH REVIEW WAS CANCELLED, 05/02/2020 12:20 added per RN 112:20. Result Comment: By h er/his signature above, the Pathologist listed as making the final interpretation certifies that she/he has personally reviewed this case. Performed By: #### P R12 #### [facility] [address] [place] [address] THYROXINE,FREEon 05-02-2020 THYROXINE,FREE 1.30 ng/dL High 0.61 - 1.12 [facility] Comment on above: Result Comment: Thyr oxine Free testing is performed using different testing methodology at [facility] than at other [facility]. Direct result comparisons should only [...] blood draw. Performed By: #### T 4FRE ####[facility] [place], [place] [id number] TSHon 05-02-2020 TSH Qn 0.69 m[IU]/L Normal 0.44 - 3.98 [facility] Comment on above: Result Comment: TSH testing is performed using different testing methodology at [facility] than at other [facility]. Direct result comparisons should only be made within the same method. Performed By: #### C BC #### [facility] [address] [place], [place] [id number] URIC ACIDon 05-02-2020 Urate [Mass/Vol] 10.4 mg/dL High 2.3 - 6.7 [facility] Comment on above: Result Comment: Nadia puncture immediately after or during the administration of Metamizole may lead to falsely low results. Testing should be performed immediately prior to Metamizole dosing. Performed By: #### U SANDI ####[facility] [place], [place] [phone] US RENAL BILATon 05-02-2020 US RENAL BILAT Patient Name: LINDA PERALTA STUDY: US RENAL BILAT; 05/02/2020 12:38 pm INDICATION: ANGELA. COMPARISON: None. ACCESSION NUMBER(S): [id number] ORDERING CLINICIAN: NANI STANLEY TECHNIQUE: Multiple images [...] Electronically signed by: ALBERTO HARRIS MD Normal [facility] VITAMIN D 1,25-DIHYDROXYon 0 05-02-2020 VITAMIN D 1,25-DIHYDROXY Canceled Normal [facility] Comment on above: Order Comment: TEST VITAMIN D 1,25-DIHYDROXY WAS CANCELLED, 05/02/2020 12:20 added per RN05/02/2020 12:20. Performed By: #### V TDDI ####[address] [address] VITAMIN D, 25-HYDROXYon 04-20 VITAMIN D, 25-HYDROXY 33 ng/mL Normal [facility] Comment on above: Result Comment: . DEFICIENCY: < 20 NG/ML INSUFFICIENCY: 20-29 NG/ML SUFFICIENCY: 30-100 NG/ML THIS ASSAY ACCURATELY QUANTIFIES THE SUM OF VITAMIN D3, 25-HYDROXY AND VIT D2,25-HYDROXY. Performed By: #### C #### [address] [id number] Culture, urine Bacteria identified Cx Nom (U) Positive [facility] Work Phone: Bacteria identified Cx Nom (U) Escherichia coli [facility] Work Phone: Laboratory - Microbiology an d Antimicrobial susceptibility Bacteria identified Cx Nom (Bld) No growth in 5 days. [facility] Work Phone: Vital Signs Date Time Vital Sign Value Performing Clinician Facility 11-28-2024 11:17-0400 Body height 157.5 cm Basim Joel APRN - [employer] Work Phone: [facility] 11-28-2024 11:17-0400 Body mass index (BMI) [Ratio] 27.65 kg/m2 Basim Joel APRN - [employer] Work Phone: [facility] 11-28-2024 11:17-0400 Body weight 68.58 kg Basim Joel APRN - [employer] Work Phone: [facility] 11-28-2024 11:17-0400 Diastolic blood pressure 92 mm[Hg] Basim Bang [employer] Work Phone: [facility] 11-28-2024 11:17-0400 Heart rate 92 /min Basim Joel APRN - [employer] Work Phone: [facility] 11-28-2024 11:17-0400 SaO2% (BldA) [Mass fraction] 99 % Basim Joel APRN - [employer] Work Phone: [facility] 11-28-2024 11:17-0400 Systolic blood pressure 150 mm[Hg] Basim Bang [employer] Work Phone: [facility] 11-28-2024 10:00-0400 Body mass index (BMI) [Ratio] 27.98 kg/m2 Dylon Gupta BROKERAGE CLERK [employer] Work Phone: [facility] 11-28-2024 10:00-0400 Body weight 69.4 kg Dylon Gutpa BROKERAGE CLERK - [employer] Work Phone: [facility] 11-14-2024 09:18-0400 Diastolic blood pressure 98 mm[Hg] Dr. Amos Floyd MD Work Phone: [facility] 11-14-2024 09:18-0400 Systolic blood pressure 139 mm[Hg] Dr. Amos Floyd MD Work Phone: [facility] 11-14-2024 09:02-0400 Body height 157.[address] Amos Floyd MD Work Phone: [facility] 11-14-2024 09:02-0400 Body mass index (BMI) [Ratio] 27.2 kg/m2 Dr. Amos Floyd MD Work Phone: [facility] 11-14-2024 09:02-0400 Body weight 67.[address] Amos Floyd MD Work Phone: [facility] 11-14-2024 09:02-0400 Heart rate 81 /min Dr. Amos Floyd MD Work Phone: [facility] 11-14-2024 09:02-0400 Respiratory rate 16 /min Dr. Amos Floyd MD Work Phone: [facility] 10-31-2024 10:49-0400 Body height 157.5 cm Basim Joel BROKERAGE CLERK - [employer] Work Phone: [facility] 10-31-2024 10:49-0400 Body mass index (BMI) [Ratio] 27.98 kg/m2 Basim Joel BROKERAGE CLERK - [employer] Work Phone: [facility] 10-31-2024 10:49-0400 Body weight 69.4 kg Basim Joel BROKERAGE CLERK - [employer] Work Phone: [facility] 10-31-2024 10:49-0400 Diastolic blood pressure 86 mm[Hg] Basim Joel BROKERAGE CLERK - [employer] Work Phone: [facility] 10-31-2024 10:49-0400 Heart rate 96 /min Basim Hernandezluisa Bang [employer] Work Phone: [facility] 10-31-2024 10:49-0400 SaO2% (BldA) [Mass fraction] 98 % Basim Joel BROKERAGE CLERK - [employer] Work Phone: [facility] 10-31-2024 10:49-0400 Systolic blood pressure 132 mm[Hg] Basim Hernandezluisa Bang [employer] Work Phone: [facility] 10-29-2024 10:41-0400 Body mass index (BMI) [Ratio] 28.06 kg/m2 Amos Floyd MD Work Phone: [facility] 10-29-2024 10:41-0400 Body temperature 97.5 [degF] Amos Floyd MD Work Phone: [facility] 10-29-2024 10:41-0400 Body weight 69.6 kg Amos Floyd MD Work Phone: [facility] 10-29-2024 10:41-0400 Diastolic blood pressure 72 mm[Hg] Amos Floyd MD Work Phone: [facility] 10-29-2024 10:41-0400 Heart rate 60 /min Amos Floyd MD Work Phone: [facility] 10-29-2024 10:41-0400 Respiratory rate 20 /min Amos Floyd MD Work Phone: [facility] 10-29-2024 10:41-0400 Systolic blood pressure 112 mm[Hg] Amos Floyd MD Work Phone: [facility] 10-24-2024 11:00-0400 Diastolic blood pressure 116 mm[Hg] Memo Canas MD Work Phone: [facility] 10-24-2024 11:00-0400 Heart rate 93 /min Memo Canas MD Work Phone: [facility] 10-24-2024 11:00-0400 Respiratory rate 27 /min Memo Canas MD Work Phone: [facility] 10-24-2024 11:00-0400 SaO2% (BldA) [Mass fraction] 96 % Memo Canas MD Work Phone: [facility] 10-24-2024 11:00-0400 Systolic blood pressure 134 mm[Hg] Memo Canas MD Work Phone: [facility] 10-24-2024 09:00-0400 Body temperature 95.5 [degF] Memo Canas MD Work Phone: [facility] 10-24-2024 08:22-0400 Body height 157.5 cm Memo Canas MD Work Phone: [facility] 10-24-2024 08:22-0400 Body mass index (BMI) [Ratio] 26.7 kg/m2 Memo Canas MD Work Phone: [facility] 10-24-2024 08:22-0400 Body weight 66.22 kg Memo Canas MD Work Phone: [facility] 09-19-2024 14:57-0400 Body height 157.5 cm Basim Joel APRN - [employer] Work Phone: [facility] 09-19-2024 14:57-0400 Body mass index (BMI) [Ratio] 29.26 kg/m2 Basim Joel APRN - [employer] Work Phone: [facility] 09-19-2024 14:57-0400 Body weight 72.58 kg Basim Bang CNP Work Phone: [facility] 09-19-2024 14:57-0400 Diastolic blood pressure 84 mm[Hg] Basim Bang CNP Work Phone: [facility] 09-19-2024 14:57-0400 Heart rate 90 /min Basim Bang CNP Work Phone: [facility] 09-19-2024 14:57-0400 SaO2% (BldA) [Mass fraction] 100 % Basim Wisam BROKERAGE CLERK - [employer] Work Phone: [facility] 09-19-2024 14:57-0400 Systolic blood pressure 115 mm[Hg] Basim Hernandezel BROKERAGE CLERK - [employer] Work Phone: [facility] 09-19-2024 10:53-0400 Body height 157.5 cm Arelis Dusz BROKERAGE CLERK.[employer] Work Phone: [facility] 09-19-2024 10:53-0400 Body mass index (BMI) [Ratio] 28.35 kg/m2 Arelis Dusz BROKERAGE CLERK.[employer] Work Phone: [facility] 09-19-2024 10:53-0400 Body weight 70.31 kg Arelis Dusz BROKERAGE CLERK.[employer] Work Phone: [facility] 09-19-2024 10:53-0400 Diastolic blood pressure 76 mm[Hg] Arelis Dusz BROKERAGE CLERK.[employer] Work Phone: [facility] 09-19-2024 10:53-0400 Systolic blood pressure 124 mm[Hg] Arelis Dusz BROKERAGE CLERK.[employer] Work Phone: [facility] 09-03-2024 15:49-0400 Body height 157.5 cm Baldo De La Cruz MD Work Phone: [facility] 09-03-2024 15:49-0400 Body mass index (BMI) [Ratio] 28.55 kg/m2 Baldo De La Cruz MD Work Phone: [facility] 09-03-2024 15:49-0400 Body weight 70.8 kg Baldo De La Cruz MD Work Phone: [facility] 09-03-2024 15:49-0400 Diastolic blood pressure 86 mm[Hg] Baldo De La Cruz MD Work Phone: [facility] 09-03-2024 15:49-0400 Heart rate 98 /min Baldo De La Cruz MD Work Phone: [facility] 09-03-2024 15:49-0400 Systolic blood pressure 124 mm[Hg] Baldo De La Cruz MD Work Phone: [facility] 09-03-2024 15:29-0400 Body height 157.5 cm Memo Canas MD Work Phone: [facility] 09-03-2024 15:29-0400 Body mass index (BMI) [Ratio] 28.53 kg/m2 Memo Canas MD Work Phone: [facility] 09-03-2024 15:29-0400 Body weight 70.76 kg Memo Canas MD Work Phone: [facility] 09-03-2024 15:29-0400 Diastolic blood pressure 86 mm[Hg] Memo Canas MD Work Phone: [facility] 09-03-2024 15:29-0400 Heart rate 98 /min Memo Canas MD Work Phone: [facility] 09-03-2024 15:29-0400 Systolic blood pressure 124 mm[Hg] Memo Canas MD Work Phone: [facility] 08-29-2024 10:47-0400 Diastolic blood pressure 83 mm[Hg] Amos Floyd MD Work Phone: [facility] 08-29-2024 10:47-0400 Heart rate 71 /min Amos Floyd MD Work Phone: [facility] 08-29-2024 10:47-0400 Systolic blood pressure 135 mm[Hg] Amos Floyd MD Work Phone: [facility] 08-29-2024 10:36-0400 Body mass index (BMI) [Ratio] 28.79 kg/m2 Amos Floyd MD Work Phone: [facility] 08-29-2024 10:36-0400 Body weight 71.4 kg Amos Floyd MD Work Phone: [facility] 08-29-2024 10:36-0400 Respiratory rate 20 /min Amos Floyd MD Work Phone: [facility] 08-14-2024 11:28-0400 Body mass index (BMI) [Ratio] 28.71 kg/m2 Amos Floyd MD Work Phone: [facility] 08-14-2024 11:28-0400 Body temperature 98.2 [degF] Amos Floyd MD Work Phone: [facility] 08-14-2024 11:28-0400 Body weight 71.2 kg Amos Floyd MD Work Phone: [facility] 08-14-2024 11:28-0400 Diastolic blood pressure 64 mm[Hg] Amos Floyd MD Work Phone: [facility] 08-14-2024 11:28-0400 Heart rate 88 /min Amos Floyd MD Work Phone: [facility] 08-14-2024 11:28-0400 Respiratory rate 18 /min Amos Floyd MD Work Phone: [facility] 08-14-2024 11:28-0400 Systolic blood pressure 98 mm[Hg] Amos Floyd MD Work Phone: [facility] 08-09-2024 15:03-0400 Body temperature 97.3 [degF] Dr. Amos Floyd MD Work Phone: [facility] 08-09-2024 15:03-0400 Diastolic blood pressure 73 mm[Hg] Dr. Amos Floyd MD Work Phone: [facility] 08-09-2024 15:03-0400 Heart rate 93 /min Dr. Amos Floyd MD Work Phone: [facility] 08-09-2024 15:03-0400 Respiratory rate 18 /min Dr. Amos Floyd MD Work Phone: [facility] 08-09-2024 15:03-0400 SaO2% (BldA) [Mass fraction] 96 % Dr. Amos Floyd MD Work Phone: [facility] 08-09-2024 15:03-0400 Systolic blood pressure 112 mm[Hg] Dr. Amos Floyd MD Work Phone: 2(286)887-966767 [place] [address] 08-09-2024 05:31-0400 Body mass index (BMI) [Ratio] 29.5 kg/m2 Dr. Amos Floyd MD Work Phone: 8(448)841-588267 [place] [address] 08-09-2024 05:31-0400 Body weight 72.[address] Amos Floyd MD Work Phone: 1(430)461-265067 [place] [address] 08-08-2024 10:56-0400 Body height 157.[address] Amos Floyd MD Work Phone: 7(132)762-569167 [place] [address] 08-07-2024 21:30-0400 Diastolic blood pressure 88 mm[Hg] Dr. Amos Floyd MD Work Phone: 0(112)204-831967 [place] [address] 08-07-2024 21:30-0400 Heart rate 101 /min Dr. Amos Floyd MD Work Phone: 8(548)615-435767 [place] [address] 08-07-2024 21:30-0400 Respiratory rate 23 /min Dr. Amos Floyd MD Work Phone: 1(862)516-918667 [place] [address] 08-07-2024 21:30-0400 SaO2% (BldA) [Mass fraction] 98 % Dr. Amos Floyd MD Work Phone: 1(519)390-447967 [place] [address] 08-07-2024 21:30-0400 Systolic blood pressure 123 mm[Hg] Dr. Amos Floyd MD Work Phone: 0(361)989-281067 [place] [address] 08-07-2024 21:13-0400 Body temperature 98.4 [degF] Dr. Amos Floyd MD Work Phone: 8(449)317-785467 [place] [address] 08-07-2024 16:00-0400 Body mass index (BMI) [Ratio] 27.3 kg/m2 Dr. Amos Floyd MD Work Phone: 2(440)502-716067 [place] [address] 08-07-2024 16:00-0400 Body weight [address] Amos Floyd MD Work Phone: [facility] 08-07-2024 15:49-0400 Body height 157.[address] Amos Floyd MD Work Phone: [facility] 08-05-2024 07:22-0400 Body height 157.[address] Amos Floyd MD Work Phone: [facility] 08-05-2024 07:22-0400 Body weight 66.[address] Amos Floyd MD Work Phone: [facility] 08-01-2024 16:17-0400 Body mass index (BMI) [Ratio] 26.6 kg/m2 Dr. Amos Floyd MD Work Phone: [facility] 07-24-2024 10:50-0400 Body mass index (BMI) [Ratio] 26.53 kg/m2 Amos Floyd MD Work Phone: [facility] 07-24-2024 10:50-0400 Body weight 65.8 kg Amos Floyd MD Work Phone: [facility] 07-24-2024 10:50-0400 Diastolic blood pressure 82 mm[Hg] Amos Floyd MD Work Phone: [facility] 07-24-2024 10:50-0400 Heart rate 80 /min Amos Floyd MD Work Phone: [facility] 07-24-2024 10:50-0400 Respiratory rate 20 /min Amos Floyd MD Work Phone: [facility] 07-24-2024 10:50-0400 Systolic blood pressure 126 mm[Hg] Amos Floyd MD Work Phone: [facility] 07-23-2024 06:19-0400 Body mass index (BMI) [Ratio] 26.6 kg/m2 Dr. Amos Floyd MD Work Phone: [facility] 07-23-2024 06:19-0400 Body weight 66.[address] Amos Floyd MD Work Phone: 9(177)394-645922 [place] [address] 07-23-2024 06:19-0400 Diastolic blood pressure 93 mm[Hg] Dr. Amos Floyd MD Work Phone: 8(110)455-214122 [place] [address] 07-23-2024 06:19-0400 Heart rate 98 /min Dr. Aoms Floyd MD Work Phone: 8(906)576-640067 [place] [address] 07-23-2024 06:19-0400 Respiratory rate 18 /min Dr. Amos Floyd MD Work Phone: 6(315)174-267967 [place] [address] 07-23-2024 06:19-0400 SaO2% (BldA) [Mass fraction] 100 % Dr. Amos Floyd MD Work Phone: 2(175)568-436467 [place] [address] 07-23-2024 06:19-0400 Systolic blood pressure 142 mm[Hg] Dr. Amos Floyd MD Work Phone: 0(484)126-453767 [place] [address] 04-29-2024 08:22-0400 Body mass index (BMI) [Ratio] 26.5 kg/m2 Dr. Amos Floyd MD Work Phone: 7(534)546-924567 [place] [address] 04-29-2024 08:22-0400 Body weight 65.[address] Amos Floyd MD Work Phone: 5(604)835-977767 [place] [address] 04-29-2024 08:22-0400 Diastolic blood pressure 91 mm[Hg] Dr. Amos Floyd MD Work Phone: 1(802)346-494667 [place] [address] 04-29-2024 08:22-0400 Heart rate 97 /min Dr. Amos Floyd MD Work Phone: 9(767)130-691767 [place] [address] 04-29-2024 08:22-0400 Respiratory rate 18 /min Dr. Amos Floyd MD Work Phone: 7(620)725-181467 [place] [address] 04-29-2024 08:22-0400 SaO2% (BldA) [Mass fraction] 94 % Dr. Amos Floyd MD Work Phone: 8(278)798-682867 [place] [address] 04-29-2024 08:22-0400 Systolic blood pressure 123 mm[Hg] Dr. Amos Floyd MD Work Phone: [facility] 01-23-2024 10:10-0500 Body height 157.5 cm Amos Floyd MD Work Phone: [facility] 01-23-2024 10:10-0500 Body mass index (BMI) [Ratio] 26.01 kg/m2 Amos Floyd MD Work Phone: [facility] 01-23-2024 10:10-0500 Body temperature 97.5 [degF] Amos Floyd MD Work Phone: [facility] 01-23-2024 10:10-0500 Body weight 64.5 kg Amos Floyd MD Work Phone: [facility] 01-23-2024 10:10-0500 Diastolic blood pressure 76 mm[Hg] Amos Floyd MD Work Phone: [facility] 01-23-2024 10:10-0500 Heart rate 88 /min Amos Floyd MD Work Phone: [facility] 01-23-2024 10:10-0500 Respiratory rate 16 /min Amos Floyd MD Work Phone: [facility] 01-23-2024 10:10-0500 Systolic blood pressure 128 mm[Hg] Amos Floyd MD Work Phone: [facility] 09-19-2023 11:00-0400 Diastolic blood pressure 87 mm[Hg] Kole El PT Work Phone: [facility] 09-19-2023 11:00-0400 Heart rate 90 /min Kole El PT Work Phone: [facility] 09-19-2023 11:00-0400 Systolic blood pressure 131 mm[Hg] Kole El PT Work Phone: [facility] 09-12-2023 11:00-0400 Diastolic blood pressure 81 mm[Hg] Kole El PT Work Phone: [facility] 09-12-2023 11:00-0400 Heart rate 99 /min Kole Sienna PT Work Phone: [facility] 09-12-2023 11:00-0400 Systolic blood pressure 126 mm[Hg] Kole Sienna PT Work Phone: [facility] 09-08-2023 14:00-0400 Diastolic blood pressure 79 mm[Hg] Kole Sienna PT Work Phone: [facility] 09-08-2023 14:00-0400 Heart rate 98 /min Kole Sienna PT Work Phone: [facility] 09-08-2023 14:00-0400 Systolic blood pressure 115 mm[Hg] Kole Sienna PT Work Phone: [facility] 08-30-2023 14:00-0400 Diastolic blood pressure 79 mm[Hg] Kole Sienna PT Work Phone: [facility] 08-30-2023 14:00-0400 Heart rate 79 /min Kole Sienna PT Work Phone: [facility] 08-30-2023 14:00-0400 Systolic blood pressure 115 mm[Hg] Kole Sienna PT Work Phone: [facility] 08-21-2023 11:00-0400 Diastolic blood pressure 83 mm[Hg] Gisel Kashuba SALES AUDIT CLERK Work Phone: [facility] 08-21-2023 11:00-0400 Heart rate 81 /min Gisel Kashuba SALES AUDIT CLERK Work Phone: [facility] 08-21-2023 11:00-0400 Systolic blood pressure 118 mm[Hg] Gisel Kashuba SALES AUDIT CLERK Work Phone: [facility] 08-09-2023 09:00-0400 Diastolic blood pressure 87 mm[Hg] Kole Sienna PT Work Phone: [facility] 08-09-2023 09:00-0400 Heart rate 78 /min Kole Sienna PT Work Phone: [facility] 08-09-2023 09:00-0400 Systolic blood pressure 139 mm[Hg] Kole Sienna PT Work Phone: [facility] 08-02-2023 09:00-0400 Diastolic blood pressure 100 mm[Hg] Kole Sienna PT Work Phone: [facility] Comment on above: Right when entering clinic upon sitting. 08-02-2023 09:00-0400 Heart rate 77 /min Kole Sienna PT Work Phone: [facility] 08-02-2023 09:00-0400 Systolic blood pressure 155 mm[Hg] Kole Sienna PT Work Phone: [facility] Comment on above: Right when entering clinic upon sitting. 07-19-2023 09:00-0400 Diastolic blood pressure 108 mm[Hg] Kole Sienna PT Work Phone: [facility] Comment on above: Resting. 07-19-2023 09:00-0400 Heart rate 85 /min Kole Sienna PT Work Phone: [facility] 07-19-2023 09:00-0400 Systolic blood pressure 164 mm[Hg] Kole Sienna PT Work Phone: [facility] Comment on above: Resting. 07-05-2023 09:00-0400 Diastolic blood pressure 115 mm[Hg] Kole Sienna PT Work Phone: [facility] Comment on above: Measured 3 times automatically and then once manually with measurements around the same. 07-05-2023 09:00-0400 Heart rate 92 /min Kole Sienna PT Work Phone: [facility] 07-05-2023 09:00-0400 Systolic blood pressure 170 mm[Hg] Kole Sienna PT Work Phone: [facility] Comment on above: Measured 3 times automatically and then once manually with measurements around the same. 06-30-2023 09:39-0400 Body mass index (BMI) [Ratio] 25.61 kg/m2 Amos Floyd MD Work Phone: [facility] 06-30-2023 09:39-0400 Body weight 63.5 kg Amos Floyd MD Work Phone: [facility] 06-30-2023 09:39-0400 Diastolic blood pressure 100 mm[Hg] Amos Floyd MD Work Phone: [facility] 06-30-2023 09:39-0400 Heart rate 78 /min Amos Floyd MD Work Phone: [facility] 06-30-2023 09:39-0400 Respiratory rate 16 /min Amos Floyd MD Work Phone: [facility] 06-30-2023 09:39-0400 Systolic blood pressure 164 mm[Hg] Amos Floyd MD Work Phone: [facility] 06-28-2023 11:00-0400 Diastolic blood pressure 96 mm[Hg] Koleberny MoralesSienna PT Work Phone: [facility] Comment on above: At beginning of session. 06-28-2023 11:00-0400 Heart rate 85 /min Koleberny MoralesSienna PT Work Phone: [facility] 06-28-2023 11:00-0400 Systolic blood pressure 144 mm[Hg] Kole Sienna PT Work Phone: [facility] Comment on above: At beginning of session. 06-21-2023 13:00-0400 Diastolic blood pressure 99 mm[Hg] Koleberny MoralesSienna PT Work Phone: [facility] 06-21-2023 13:00-0400 Heart rate 86 /min Kole Sienna PT Work Phone: [facility] 06-21-2023 13:00-0400 Systolic blood pressure 150 mm[Hg] Kole Sienna PT Work Phone: [facility] 06-14-2023 11:00-0400 Diastolic blood pressure 106 mm[Hg] Kole Sienna PT Work Phone: [facility] Comment on above: Initial. 06-14-2023 11:00-0400 Heart rate 87 /min Kole Sienna PT Work Phone: [facility] 06-14-2023 11:00-0400 SaO2% (BldA) [Mass fraction] 98 % Kole El PT Work Phone: [facility] 06-14-2023 11:00-0400 Systolic blood pressure 157 mm[Hg] Kole El PT Work Phone: [facility] Comment on above: Initial. 05-31-2023 15:33-0400 Diastolic blood pressure 77 mm[Hg] Dr. Amos Floyd Work Phone: [facility] 05-31-2023 15:33-0400 Heart rate 81 /min Dr. Amos Floyd Work Phone: [facility] 05-31-2023 15:33-0400 Systolic blood pressure 134 mm[Hg] Dr. Amos Floyd Work Phone: [facility] 05-31-2023 14:22-0400 Body height 157.[address] Amos Floyd Work Phone: [facility] 05-31-2023 14:22-0400 Body mass index (BMI) [Ratio] 25.6 kg/m2 Dr. Amos Floyd Work Phone: [facility] 05-31-2023 14:22-0400 Body temperature 97 [degF] Dr. Amos Floyd Work Phone: [facility] 05-31-2023 14:22-0400 Body weight 63.[address] Amos Floyd Work Phone: [facility] 05-31-2023 14:22-0400 Respiratory rate 14 /min Dr. Amos Floyd Work Phone: [facility] 05-31-2023 14:22-0400 SaO2% (BldA) [Mass fraction] 99 % Dr. Amos Floyd Work Phone: [facility] 05-31-2023 11:12-0400 Body temperature 97.11 [degF] Rocio VivasFide BROKERAGE CLERK.[employer] Work Phone: [facility] 05-31-2023 11:12-0400 Body weight 64.41 kg Rocio VivasFide BROKERAGE CLERK.[employer] Work Phone: [facility] 05-31-2023 11:12-0400 Diastolic blood pressure 71 mm[Hg] Roico VillafanaFide BROKERAGE CLERK.[employer] Work Phone: [facility] 05-31-2023 11:12-0400 Heart rate 112 /min Rocio VillafanaFide BROKERAGE CLERK.[employer] Work Phone: [facility] 05-31-2023 11:12-0400 Respiratory rate 14 /min Rocio VillafanaFide BROKERAGE CLERK.[employer] Work Phone: [facility] 05-31-2023 11:12-0400 SaO2% (BldA) [Mass fraction] 97 % Rocio Elizalde BROKERAGE CLERK.[employer] Work Phone: [facility] 05-31-2023 11:12-0400 Systolic blood pressure 102 mm[Hg] Rocio VivasFide BROKERAGE CLERK.[employer] Work Phone: [facility] 05-26-2023 11:11-0400 Body temperature 97.7 [degF] Elisa Mcdonough MD Work Phone: [facility] 05-26-2023 11:11-0400 Diastolic blood pressure 72 mm[Hg] Elisa Mcdonough MD Work Phone: [facility] 05-26-2023 11:11-0400 Heart rate 92 /min Elisa Mcdonough MD Work Phone: [facility] 05-26-2023 11:11-0400 Respiratory rate 17 /min Elisa Mcdonough MD Work Phone: [facility] 05-26-2023 11:11-0400 SaO2% (BldA) [Mass fraction] 94 % Elisa Mcdonough MD Work Phone: [facility] 05-26-2023 11:11-0400 Systolic blood pressure 106 mm[Hg] Elisa Mcdonough MD Work Phone: [facility] 05-24-2023 01:41-0400 Body height 157.5 cm Elisa Mcdonough MD Work Phone: [facility] 05-24-2023 01:41-0400 Body mass index (BMI) [Ratio] 25.85 kg/m2 Elisa Mcdonough MD Work Phone: [facility] 05-24-2023 01:41-0400 Body weight 64.1 kg Elisa Mcdonough MD Work Phone: [facility] 05-24-2023 00:20-0400 Body temperature 97.4 [degF] Dr. Amos Floyd Work Phone: [facility] 05-24-2023 00:20-0400 Diastolic blood pressure 91 mm[Hg] Dr. Amos Floyd Work Phone: [facility] 05-24-2023 00:20-0400 Heart rate 81 /min Dr. Amos Floyd Work Phone: [facility] 05-24-2023 00:20-0400 Respiratory rate 15 /min Dr. Amos Floyd Work Phone: [facility] 05-24-2023 00:20-0400 SaO2% (BldA) [Mass fraction] 96 % Dr. Amos Floyd Work Phone: [facility] 05-24-2023 00:20-0400 Systolic blood pressure 138 mm[Hg] Dr. Amos Floyd Work Phone: [facility] 05-23-2023 20:02-0400 Body height 157.[address] Amos Floyd Work Phone: [facility] 05-23-2023 20:02-0400 Body mass index (BMI) [Ratio] 25.8 kg/m2 Dr. Amos Floyd Work Phone: [facility] 05-23-2023 20:02-0400 Body weight 64.[address] Amos Floyd Work Phone: [facility] 05-23-2023 12:18-0400 Body weight 63.5 kg Rocio Fide BROKERAGE CLERK.[employer] Work Phone: [facility] 05-23-2023 12:18-0400 Diastolic blood pressure 82 mm[Hg] Rocio Fide BROKERAGE CLERK.[employer] Work Phone: [facility] 05-23-2023 12:18-0400 Heart rate 72 /min Rocio Fide BROKERAGE CLERK.[employer] Work Phone: [facility] 05-23-2023 12:18-0400 Respiratory rate 14 /min Rocio Fide BROKERAGE CLERK.[employer] Work Phone: [facility] 05-23-2023 12:18-0400 SaO2% (BldA) [Mass fraction] 96 % Rocio Fide BROKERAGE CLERK.[employer] Work Phone: [facility] 05-23-2023 12:18-0400 Systolic blood pressure 106 mm[Hg] Rocio Fide BROKERAGE CLERK.[employer] Work Phone: [facility] 05-15-2023 22:30-0400 Body temperature 98.1 [degF] Dr. Amos Floyd Work Phone: [facility] 05-15-2023 22:30-0400 Diastolic blood pressure 86 mm[Hg] Dr. Amos Floyd Work Phone: [facility] 05-15-2023 22:30-0400 Heart rate 74 /min Dr. Amos Floyd Work Phone: [facility] 05-15-2023 22:30-0400 Respiratory rate 16 /min Dr. Amos Floyd Work Phone: [facility] 05-15-2023 22:30-0400 SaO2% (BldA) [Mass fraction] 98 % Dr. Amos Floyd Work Phone: 2(575)306-557567 [place] [address] 05-15-2023 22:30-0400 Systolic blood pressure 146 mm[Hg] Dr. Amos Floyd Work Phone: 8(383)557-921467 [place] [address] 05-15-2023 14:44-0400 Body height 157.[address] Amos Floyd Work Phone: 0(900)080-446167 [place] [address] 05-15-2023 14:44-0400 Body mass index (BMI) [Ratio] 26 kg/m2 Dr. Amos Floyd Work Phone: 0(601)155-946867 [place] [address] 05-15-2023 14:44-0400 Body weight 64.[address] Amos Floyd Work Phone: 1(565)863-019867 [place] [address] 03-03-2023 08:55-0500 Body height 157.[address] Amos Floyd Work Phone: 8(605)906-146267 [place] [address] 03-03-2023 08:55-0500 Body mass index (BMI) [Ratio] 26.3 kg/m2 Dr. Amos Floyd Work Phone: 8(619)302-040367 [place] [address] 03-03-2023 08:55-0500 Body weight 65.[address] Amos Floyd Work Phone: 2(819)665-844367 [place] [address] 03-03-2023 08:55-0500 Diastolic blood pressure 76 mm[Hg] Dr. Amos Floyd Work Phone: 4(386)174-635167 [place] [address] 03-03-2023 08:55-0500 Heart rate 86 /min Dr. Amos Floyd Work Phone: 2(160)154-358367 [place] [address] 03-03-2023 08:55-0500 Respiratory rate 18 /min Dr. Amos Floyd Work Phone: 0(983)661-145367 [place] [address] 03-03-2023 08:55-0500 SaO2% (BldA) [Mass fraction] 99 % Dr. Amos Floyd Work Phone: 3(908)023-846067 [place] [address] 03-03-2023 08:55-0500 Systolic blood pressure 115 mm[Hg] Dr. Amos Floyd Work Phone: [facility] 01-19-2023 12:57-0500 Body height 159 cm Amos Floyd MD Work Phone: [facility] 01-19-2023 12:57-0500 Body weight 64.41 kg Amos Floyd MD Work Phone: [facility] 01-19-2023 12:57-0500 Diastolic blood pressure 66 mm[Hg] Amos Floyd MD Work Phone: [facility] 01-19-2023 12:57-0500 Heart rate 88 /min Amos Floyd MD Work Phone: [facility] 01-19-2023 12:57-0500 Respiratory rate 16 /min Amos Floyd MD Work Phone: [facility] 01-19-2023 12:57-0500 Systolic blood pressure 110 mm[Hg] Amos Floyd MD Work Phone: [facility] 11-25-2022 13:20-0400 Body height 157.[address] Amos Floyd Work Phone: [facility] 11-25-2022 13:20-0400 Body temperature 97.4 [degF] Dr. Amos Flody Work Phone: [facility] 11-25-2022 13:20-0400 Diastolic blood pressure 91 mm[Hg] Dr. Amos Floyd Work Phone: [facility] 11-25-2022 13:20-0400 Heart rate 75 /min Dr. Amos Floyd Work Phone: [facility] 11-25-2022 13:20-0400 Respiratory rate 16 /min Dr. Amos Floyd Work Phone: [facility] 11-25-2022 13:20-0400 SaO2% (BldA) [Mass fraction] 99 % Dr. Amos Floyd Work Phone: 3(196)072-821622 [place] [address] 11-25-2022 13:20-0400 Systolic blood pressure 131 mm[Hg] Dr. Amos Floyd Work Phone: 2(533)767-874867 [place] [address] 11-24-2022 13:49-0400 Body mass index (BMI) [Ratio] 26.2 kg/m2 Dr. Amos Floyd Work Phone: 5(306)365-061567 [place] [address] 11-24-2022 13:49-0400 Body temperature 97.6 [degF] Dr. Amos Floyd Work Phone: 8(049)238-314267 [place] [address] 11-24-2022 13:49-0400 Body weight 64.[address] Amos Floyd Work Phone: 3(753)545-549667 [place] [address] 11-24-2022 13:49-0400 Diastolic blood pressure 74 mm[Hg] Dr. Amos Floyd Work Phone: 4(836)608-977667 [place] [address] 11-24-2022 13:49-0400 Heart rate 70 /min Dr. Amos Floyd Work Phone: 4(756)219-777467 [place] [address] 11-24-2022 13:49-0400 Respiratory rate 16 /min Dr. Amos Floyd Work Phone: 6(104)355-936067 [place] [address] 11-24-2022 13:49-0400 SaO2% (BldA) [Mass fraction] 97 % Dr. Amos Floyd Work Phone: 7(758)169-220522 [place] [address] 11-24-2022 13:49-0400 Systolic blood pressure 112 mm[Hg] Dr. Amos Floyd Work Phone: [facility] 11-08-2022 10:48-0400 Body temperature 97.5 [degF] Jacinda Enriquez BROKERAGE CLERK.[employer] Work Phone: [facility] 11-08-2022 10:48-0400 Body weight 63.32 kg Jacinda Enriquez BROKERAGE CLERK.[employer] Work Phone: [facility] 11-08-2022 10:48-0400 Diastolic blood pressure 86 mm[Hg] Jacinda Enriquez BROKERAGE CLERK.[employer] Work Phone: [facility] 11-08-2022 10:48-0400 Heart rate 78 /min Jacinda Enriquez BROKERAGE CLERK.[employer] Work Phone: [facility] 11-08-2022 10:48-0400 Respiratory rate 20 /min Jacinda Enriquez BROKERAGE CLERK.[employer] Work Phone: [facility] 11-08-2022 10:48-0400 SaO2% (BldA) [Mass fraction] 98 % Jacinda Enriquez BROKERAGE CLERK.[employer] Work Phone: [facility] 11-08-2022 10:48-0400 Systolic blood pressure 128 mm[Hg] Jacinda Enriquez BROKERAGE CLERK.[employer] Work Phone: [facility] 08-04-2022 13:18-0400 Body height 157.[address] Amos Floyd Work Phone: [facility] 08-04-2022 13:18-0400 Body mass index (BMI) [Ratio] 26.2 kg/m2 Dr. Amos Floyd Work Phone: [facility] 08-04-2022 13:18-0400 Body weight 64.[address] Amos Floyd Work Phone: [facility] 08-04-2022 13:18-0400 Diastolic blood pressure 82 mm[Hg] Dr. Amos Floyd Work Phone: [facility] 08-04-2022 13:18-0400 Heart rate 79 /min Dr. Amos Floyd Work Phone: [facility] 08-04-2022 13:18-0400 Respiratory rate 18 /min Dr. Amos Floyd Work Phone: [facility] 08-04-2022 13:18-0400 SaO2% (BldA) [Mass fraction] 98 % Dr. Amos Floyd Work Phone: [facility] 08-04-2022 13:18-0400 Systolic blood pressure 122 mm[Hg] Dr. Amos Floyd Work Phone: [facility] 07-20-2022 10:17-0400 Diastolic blood pressure 66 mm[Hg] Rocio Older BROKERAGE CLERK.[employer] Work Phone: [facility] 07-20-2022 10:17-0400 Systolic blood pressure 102 mm[Hg] Rocio Older BROKERAGE CLERK.[employer] Work Phone: [facility] 07-20-2022 10:01-0400 Body weight 63.05 kg Rocio Older BROKERAGE CLERK.[employer] Work Phone: [facility] 07-20-2022 10:01-0400 Heart rate 96 /min Rocio Older BROKERAGE CLERK.[employer] Work Phone: [facility] 07-20-2022 10:01-0400 Respiratory rate 16 /min Rocio Older BROKERAGE CLERK.[employer] Work Phone: [facility] 05-27-2022 12:58-0400 Body height 157.[address] Amos Floyd Work Phone: [facility] 05-27-2022 12:58-0400 Body temperature 96.4 [degF] Dr. Amos Floyd Work Phone: [facility] 05-27-2022 12:58-0400 Diastolic blood pressure 93 mm[Hg] Dr. Amos Floyd Work Phone: [facility] 05-27-2022 12:58-0400 Heart rate 78 /min Dr. Amos Floyd Work Phone: [facility] 05-27-2022 12:58-0400 Respiratory rate 16 /min Dr. Amos Floyd Work Phone: [facility] 05-27-2022 12:58-0400 SaO2% (BldA) [Mass fraction] 99 % Dr. Amos Floyd Work Phone: 1(905)798-371622 [place] [address] 05-27-2022 12:58-0400 Systolic blood pressure 152 mm[Hg] Dr. Amos Floyd Work Phone: [facility] 01-25-2022 11:33-0500 Body height 157.[address] Amos Floyd Work Phone: [facility] 01-25-2022 11:33-0500 Body mass index (BMI) [Ratio] 25.9 kg/m2 Dr. Amos Floyd Work Phone: 4(684)707-922322 [place] [address] 01-25-2022 11:33-0500 Body weight 64.[address] Amos Floyd Work Phone: 3(007)795-755222 [place] [address] 01-25-2022 11:33-0500 Diastolic blood pressure 91 mm[Hg] Dr. Amos Floyd Work Phone: 8(435)953-471122 [place] [address] 01-25-2022 11:33-0500 Heart rate 92 /min Dr. Amos Floyd Work Phone: 3(468)429-606022 [place] [address] 01-25-2022 11:33-0500 Respiratory rate 18 /min Dr. Amos Floyd Work Phone: 0(767)773-585467 [place] [address] 01-25-2022 11:33-0500 SaO2% (BldA) [Mass fraction] 99 % Dr. Amos Floyd Work Phone: [facility] 01-25-2022 11:33-0500 Systolic blood pressure 128 mm[Hg] Dr. Amos Floyd Work Phone: [facility] 12-20-2021 09:16-0400 Diastolic blood pressure 100 mm[Hg] Rocio Older BROKERAGE CLERK.[employer] Work Phone: [facility] 12-20-2021 09:16-0400 Systolic blood pressure 154 mm[Hg] Rocio Older BROKERAGE CLERK.[employer] Work Phone: [facility] 12-20-2021 08:50-0400 Body height 156 cm Rocio Older BROKERAGE CLERK.[employer] Work Phone: [facility] 12-20-2021 08:50-0400 Body weight 64.41 kg Rocio Older BROKERAGE CLERK.[employer] Work Phone: [facility] 12-20-2021 08:50-0400 Heart rate 96 /min Rocio Older BROKERAGE CLERK.[employer] Work Phone: [facility] 12-20-2021 08:50-0400 Respiratory rate 16 /min Rocio Older BROKERAGE CLERK.[employer] Work Phone: [facility] 12-13-2021 09:14-0400 Body height 157.[address] Amos Floyd Work Phone: [facility] Work Phone: 12-13-2021 09:13-0400 Body mass index (BMI) [Ratio] 25.7 kg/m2 Dr. Amos Floyd Work Phone: [facility] 12-13-2021 09:13-0400 Body weight 63.[address] Amos Floyd Work Phone: [facility] 12-13-2021 09:13-0400 Diastolic blood pressure 95 mm[Hg] Dr. Amos Floyd Work Phone: [facility] 12-13-2021 09:13-0400 Heart rate 80 /min Dr. Amos Floyd Work Phone: [facility] 12-13-2021 09:13-0400 Respiratory rate 18 /min Dr. Amos Floyd Work Phone: [facility] 12-13-2021 09:13-0400 SaO2% (BldA) [Mass fraction] 99 % Dr. Amos Floyd Work Phone: [facility] 12-13-2021 09:13-0400 Systolic blood pressure 146 mm[Hg] Dr. Amos Floyd Work Phone: [facility] 12-06-2021 14:34-0400 Body temperature 97.5 [degF] Amos Floyd MD Work Phone: [facility] 12-06-2021 14:34-0400 Body weight 62.6 kg Amos Floyd MD Work Phone: [facility] 12-06-2021 14:34-0400 Diastolic blood pressure 86 mm[Hg] Amos Floyd MD Work Phone: [facility] 12-06-2021 14:34-0400 Heart rate 84 /min Amos Floyd MD Work Phone: [facility] 12-06-2021 14:34-0400 Respiratory rate 20 /min Amos Floyd MD Work Phone: [facility] 12-06-2021 14:34-0400 Systolic blood pressure 126 mm[Hg] Amos Floyd MD Work Phone: [facility] 12-02-2021 13:34-0400 Body mass index (BMI) [Ratio] 25.9 kg/m2 Dr. Amos Floyd Work Phone: [facility] 12-02-2021 13:34-0400 Body temperature 94.6 [degF] Dr. Amos Floyd Work Phone: [facility] 12-02-2021 13:34-0400 Body weight 64.[address] Amos Floyd Work Phone: [facility] 12-02-2021 13:34-0400 Diastolic blood pressure 104 mm[Hg] Dr. Amos Floyd Work Phone: [facility] 12-02-2021 13:34-0400 Heart rate 79 /min Dr. Amos Floyd Work Phone: [facility] 12-02-2021 13:34-0400 Respiratory rate 16 /min Dr. Amos Floyd Work Phone: [facility] 12-02-2021 13:34-0400 SaO2% (BldA) [Mass fraction] 95 % Dr. Amos Floyd Work Phone: [facility] 12-02-2021 13:34-0400 Systolic blood pressure 158 mm[Hg] Dr. Amos Floyd Work Phone: [facility] 11-26-2021 13:15-0400 Body height 157.[address] Amos Floyd Work Phone: [facility] Work Phone: 11-26-2021 13:15-0400 Body temperature 97.8 [degF] Dr. Amos Floyd Work Phone: 5(155)008-581722 [place] [address] 11-26-2021 13:15-0400 Diastolic blood pressure 88 mm[Hg] Dr. Amos Floyd Work Phone: 3(471)383-938222 [place] [address] 11-26-2021 13:15-0400 Heart rate 79 /min Dr. Amos Floyd Work Phone: 2(768)248-715867 [place] [address] 11-26-2021 13:15-0400 Respiratory rate 16 /min Dr. Amos Floyd Work Phone: 3(397)088-916167 [place] [address] 11-26-2021 13:15-0400 SaO2% (BldA) [Mass fraction] 98 % Dr. Amos Floyd Work Phone: 6(612)402-248322 [place] [address] 11-26-2021 13:15-0400 Systolic blood pressure 144 mm[Hg] Dr. Amos Floyd Work Phone: 8(928)154-616167 [place] [address] 11-18-2021 08:00-0400 Body temperature 98.2 [degF] Dr. Amos Floyd Work Phone: [facility] Work Phone: 11-18-2021 08:00-0400 Diastolic blood pressure 77 mm[Hg] Dr. Amos Floyd Work Phone: [facility] Work Phone: 11-18-2021 08:00-0400 Heart rate 72 /min Dr. Amos Floyd Work Phone: [facility] Work Phone: 11-18-2021 08:00-0400 Respiratory rate 18 /min Dr. Amos Floyd Work Phone: [facility] Work Phone: 11-18-2021 08:00-0400 SaO2% (BldA) [Mass fraction] 98 % Dr. Amos Floyd Work Phone: [facility] Work Phone: 11-18-2021 08:00-0400 Systolic blood pressure 112 mm[Hg] Dr. Amos Floyd Work Phone: [facility] Work Phone: 11-18-2021 05:55-0400 Body weight 63.[address] Amos Floyd Work Phone: [facility] Work Phone: 11-17-2021 10:20-0400 Body height 157.[address] Amos Floyd Work Phone: [facility] Work Phone: 11-17-2021 05:24-0400 Body weight 63.2 kg [facility] Work Phone: 11-17-2021 04:00-0400 Heart rate 83 /min [facility] Work Phone: 11-17-2021 01:25-0400 Body height 157.48 cm [facility] Work Phone: 11-17-2021 01:25-0400 Body mass index (BMI) [Ratio] 25.4 kg/m2 [facility] Work Phone: 11-17-2021 00:51-0400 Body temperature 98.1 [degF] [facility] Work Phone: 11-17-2021 00:51-0400 Diastolic blood pressure 63 mm[Hg] [facility] Work Phone: 11-17-2021 00:51-0400 Respiratory rate 25 /min [facility] Work Phone: 11-17-2021 00:51-0400 SaO2% (BldA) [Mass fraction] 96 % [facility] Work Phone: 11-17-2021 00:51-0400 Systolic blood pressure 84 mm[Hg] [facility] Work Phone: 10-20-2021 22:49-0400 Body mass index (BMI) [Ratio] 23 kg/m2 [facility] Work Phone: 10-13-2021 13:48-0400 Body temperature 98.71 [degF] Irene Praisler-Wood BROKERAGE CLERK.[employer] Work Phone: [facility] 10-13-2021 13:48-0400 Body weight 62.51 kg Irene Praisler-Wood BROKERAGE CLERK.[employer] Work Phone: [facility] 10-13-2021 13:48-0400 Diastolic blood pressure 84 mm[Hg] Irene Praisler-Wood BROKERAGE CLERK.[employer] Work Phone: [facility] 10-13-2021 13:48-0400 Heart rate 111 /min Irene Praisler-Wood BROKERAGE CLERK.[employer] Work Phone: [facility] 10-13-2021 13:48-0400 Respiratory rate 18 /min Irene Praisler-Wood BROKERAGE CLERK.[employer] Work Phone: [facility] 10-13-2021 13:48-0400 SaO2% (BldA) [Mass fraction] 97 % Irene Praisler-Wood BROKERAGE CLERK.[employer] Work Phone: [facility] 10-13-2021 13:48-0400 Systolic blood pressure 124 mm[Hg] Irene Praisler-Wood BROKERAGE CLERK.[employer] Work Phone: [facility] 09-19-2021 02:13-0400 Body mass index (BMI) [Ratio] 23 kg/m2 Dr. Amos Floyd Work Phone: [facility] Work Phone: 08-20-2021 06:53-0400 Body mass index (BMI) [Ratio] 23 kg/m2 Dr. Amos Floyd Work Phone: [facility] Work Phone: 07-20-2021 20:34-0400 Body mass index (BMI) [Ratio] 23 kg/m2 Dr. Amos Floyd Work Phone: [facility] Work Phone: 07-20-2021 09:20-0400 Body temperature 97.11 [degF] Amos Floyd MD Work Phone: [facility] 07-20-2021 09:20-0400 Body weight 62.6 kg Amos Floyd MD Work Phone: [facility] 07-20-2021 09:20-0400 Diastolic blood pressure 68 mm[Hg] Amos Floyd MD Work Phone: [facility] 07-20-2021 09:20-0400 Heart rate 72 /min Amos Floyd MD Work Phone: [facility] 07-20-2021 09:20-0400 Respiratory rate 16 /min Amos Floyd MD Work Phone: [facility] 07-20-2021 09:20-0400 Systolic blood pressure 114 mm[Hg] Amos Floyd MD Work Phone: [facility] 07-12-2021 11:22-0400 Body height 157.[address] Amos Floyd Work Phone: [facility] Work Phone: 07-12-2021 11:22-0400 Body mass index (BMI) [Ratio] 25.6 kg/m2 Dr. Amos Floyd Work Phone: [facility] Work Phone: 07-12-2021 11:22-0400 Body weight 63.[address] Amos Floyd Work Phone: [facility] Work Phone: 07-12-2021 11:22-0400 Diastolic blood pressure 88 mm[Hg] Dr. Amos Floyd Work Phone: [facility] Work Phone: 07-12-2021 11:22-0400 Heart rate 74 /min Dr. Amos Floyd Work Phone: [facility] Work Phone: 07-12-2021 11:22-0400 Respiratory rate 18 /min Dr. Amos Floyd Work Phone: [facility] Work Phone: 07-12-2021 11:22-0400 SaO2% (BldA) [Mass fraction] 98 % Dr. Amos Floyd Work Phone: [facility] Work Phone: 07-12-2021 11:22-0400 Systolic blood pressure 129 mm[Hg] Dr. Amos Floyd Work Phone: [facility] Work Phone: 07-12-2021 11:22-0400 Body height 157.[address] Amos Floyd Work Phone: [facility] Work Phone: 07-12-2021 11:22-0400 Body mass index (BMI) [Ratio] 25.6 kg/m2 Dr. Amos Floyd Work Phone: [facility] Work Phone: 07-12-2021 11:22-0400 Body weight 63.[address] Amos Floyd Work Phone: [facility] Work Phone: 07-12-2021 11:22-0400 Diastolic blood pressure 88 mm[Hg] Dr. Amos Floyd Work Phone: [facility] Work Phone: 07-12-2021 11:22-0400 Heart rate 74 /min Dr. Amos Floyd Work Phone: [facility] Work Phone: 07-12-2021 11:22-0400 Respiratory rate 18 /min Dr. Amos Floyd Work Phone: [facility] Work Phone: 07-12-2021 11:22-0400 SaO2% (BldA) [Mass fraction] 98 % Dr. Amos Floyd Work Phone: [facility] Work Phone: 07-12-2021 11:22-0400 Systolic blood pressure 129 mm[Hg] Dr. Amos Floyd Work Phone: [facility] Work Phone: 06-20-2021 03:20-0400 Body mass index (BMI) [Ratio] 23 kg/m2 Dr. Amos Floyd Work Phone: [facility] Work Phone: 05-27-2021 12:45-0400 Body height 157.[address] Amos Floyd Work Phone: [facility] Work Phone: 05-27-2021 12:45-0400 Body mass index (BMI) [Ratio] 25.6 kg/m2 Dr. Amos Floyd Work Phone: [facility] Work Phone: 05-27-2021 12:45-0400 Body temperature 97.1 [degF] Dr. Amos Floyd Work Phone: [facility] Work Phone: 05-27-2021 12:45-0400 Body weight 63.[address] Amos Floyd Work Phone: [facility] Work Phone: 05-27-2021 12:45-0400 Diastolic blood pressure 92 mm[Hg] Dr. Amos Floyd Work Phone: [facility] Work Phone: 05-27-2021 12:45-0400 Heart rate 89 /min Dr. Amos Floyd Work Phone: [facility] Work Phone: 05-27-2021 12:45-0400 Respiratory rate 12 /min Dr. Amos Floyd Work Phone: [facility] Work Phone: 05-27-2021 12:45-0400 SaO2% (BldA) [Mass fraction] 99 % Dr. Amos Floyd Work Phone: [facility] Work Phone: 05-27-2021 12:45-0400 Systolic blood pressure 134 mm[Hg] Dr. Amos Floyd Work Phone: [facility] Work Phone: 05-21-2021 01:38-0400 Body mass index (BMI) [Ratio] 23 kg/m2 Dr. Amos Floyd Work Phone: [facility] Work Phone: 04-20-2021 09:35-0500 Body mass index (BMI) [Ratio] 23 kg/m2 Dr. Amos Floyd Work Phone: [facility] Work Phone: 04-20-2021 08:35-0500 Body mass index (BMI) [Ratio] 23 kg/m2 Dr. Amos Floyd Work Phone: [facility] Work Phone: 2021 10:08-0500 Body height 157.[address] Amos Floyd Work Phone: [facility] Work Phone: 2021 10:08-0500 Body mass index (BMI) [Ratio] 26.5 kg/m2 Dr. Amos Floyd Work Phone: [facility] Work Phone: 2021 10:08-0500 Body weight 65.[address] Amos Floyd Work Phone: [facility] Work Phone: 2021 10:08-0500 Diastolic blood pressure 92 mm[Hg] Dr. Amos Floyd Work Phone: [facility] Work Phone: 2021 10:08-0500 Heart rate 80 /min Dr. Amos Floyd Work Phone: [facility] Work Phone: 2021 10:08-0500 Respiratory rate 18 /min Dr. Amos Floyd Work Phone: [facility] Work Phone: 2021 10:08-0500 SaO2% (BldA) [Mass fraction] 99 % Dr. Amos Floyd Work Phone: [facility] Work Phone: 2021 10:08-0500 Systolic blood pressure 134 mm[Hg] Dr. Amos Floyd Work Phone: [facility] Work Phone: 03-22-2021 21:52-0500 Body mass index (BMI) [Ratio] 23 kg/m2 Dr. Amos Floyd Work Phone: [facility] Work Phone: 02-21-2021 03:05-0500 Body mass index (BMI) [Ratio] 23 kg/m2 Dr. Amos Floyd Work Phone: [facility] Work Phone: 01-20-2021 01:16-0500 Body mass index (BMI) [Ratio] 23 kg/m2 Dr. Amos Floyd Work Phone: [facility] Work Phone: Encounters Encounter Date Encounter Type Care Provider Facility Start: 12-13-2024 Encounter for genera l adult medical examination without abnormal findings Jennifer Tarango [facility] Start: 12-10-[address] Jennifer Tarango DO -Ultrasound [facility] Work Phone: Start: 12-10-2024 End: 12-10-2024 ambulatory Jennifer Tarango Facility:[facility] Start: 12-04-2024 Non-patient / Non-visit [facility] Start: 12-04-2024 ambulatory MEMO EVAN MELVA Work Phone: -[facility] Start: 12-04-2024 ambulatory Jennifer Lee Facility: [facility] Start: 12-03-2024 End: 12-03-2024 Patient encounter procedure Basim FENTONNP -Laboratory Work Phone: Start: 12-03-2024 End: 12-03-2024 ambulatory Basim Joel Facility:[facility] Start: 11-28-2024 End: 11-28-2024 ambulatory BASIM JOEL [facility] Start: 11-28-2024 End: 11-28-2024 Office outpatient visit 25 minutes Basim Joel BROKERAGE CLERK - [employer] Work Phone: [facility] [place] Comment on above: Chronic systolic hea rt failure (HCC) (Primary Dx); S/P TAVR (transcatheter aortic valve replacement); Deep vein thrombosis (DVT) of proximal vein of both lower extremities, unspecified chronicity (HCC); Stage 3b chronic kidney disease (CMS/HCC); Lares's disease (HCC) Start: 11-28-2024 End: 11-28-2024 Subsequent hospital visit by physician Dylon Gupta BROKERAGE CLERK - [employer] Work Phone: [facility] Comment on above: Severe aortic stenos is Start: 11-28-2024 End: 11-28-2024 ambulatory DYLON GUPTA [facility] Start: 11-25-2024 End: 11-25-[address] Jennifer Tarango DO -Laboratory Work Phone: Start: 11-25-2024 End: 11-25-2024 ambulatory Jennifer Tarango Facility:[facility] Start: 11-14-2024 End: 11-14-[address] Jordan Marte MD -[facility] Work Phone: Start: 11-14-2024 End: 11-14-[address] Amos Floyd MD Work Phone: -[facility] Start: 10-31-2024 End: 10-31-2024 ambulatory BASIM [facility] Start: 10-31-2024 End: 10-31-2024 Office outpatient visit 25 minutes Basim Joel BROKERAGE CLERK - [employer] Work Phone: [facility] [place] Comment on above: Severe aortic stenos is (Primary Dx); Stage 3b chronic kidney disease (HCC); Lares's disease (HCC); Chronic systolic heart failure (HCC); Deep vein thrombosis (DVT) of proximal vein of both lower extremities, unspecified chronicity (HCC) Start: 10-31-2024 End: 10-31-2024 ambulatory BASIM [facility] Start: 10-29-2024 End: 10-29-2024 Office outpatient visit 25 minutes Amos Floyd MD Work Phone: [facility] [place] Comment on above: S/p TAVR (transcathe ter aortic valve replacement), bioprosthetic (Primary Dx); Pure hypercholesterolemia; Encounter for immunization; Stage 3b chronic kidney disease (HCC); Hypertensive kidney disease with stage 3b chronic kidney disease (HCC); Nonrheumatic aortic valve stenosis Start: 10-29-2024 End: 10-29-2024 ambulatory AMOS FLOYD Facility:[facility] Start: 10-24-2024 End: 10-24-2024 Orders Only Dylon Gupta BROKERAGE CLERK - [employer] Work Phone: [facility] [place] [facility] Comment on above: Severe aortic stenos is (Primary Dx) Start: 10-23-2024 End: 10-24-2024 Evaluation and management of inpatient Memo Canas MD Work Phone: [facility] Cardiac Thoracic Vascular Intensive Care Unit CTV ICU T1 Comment on above: Severe aortic stenos is (Primary Dx); Aortic valve stenosis, etiology of cardiac valve disease unspecified; Syncope and collapse Start: 10-22-2024 End: 10-22-2024 ambulatory Dylon Gupta BROKERAGE CLERK - [employer] Work Phone: [facility] Comment on above: Severe aortic stenos is (Primary Dx) Start: 10-16-2024 End: 10-16-2024 Office outpatient visit 25 minutes Dylon Gupta BROKERAGE CLERK - [employer] Work Phone: [facility] Comment on above: Severe aortic stenos is (Primary Dx); Stage 3 chronic kidney disease, unspecified whether stage 3a or 3b CKD (HCC); Acute deep vein thrombosis (DVT) of right lower extremity, unspecified vein (HCC); Acute systolic heart failure (HCC); Moris's disease (HCC) Start: 10-16-2024 End: 10-16-2024 ambulatory [facility] Start: 10-15-2024 End: 10-15-[address] Amos Floyd MD Work Phone: -Laboratory Start: 10-15-2024 End: 10-15-[address] Amos Floyd MD Work Phone: -Laboratory Work Phone: Start: 10-15-2024 End: 10-15-2024 ambulatory JEFF RAYGOZA Facility:[facility] Start: 10-10-2024 End: 10-23-2024 Telephone encounter Memo Canas MD Work Phone: [facility] Comment on above: Procedure Start: 10-03-2024 End: 10-03-[address] Amos Floyd MD Work Phone: -Laboratory Start: 10-03-2024 End: 10-03-2024 Patient encounter procedure Basim BUTLER -Laboratory Work Phone: Start: 10-03-2024 End: 10-03-2024 ambulatory Basim Joel Facility:[facility] Start: 10-02-2024 End: 10-02-2024 Telephone encounter Basim Joel BROKERAGE CLERK - [employer] Work Phone: [facility] [place] Start: 09-26-2024 End: 09-26-2024 ambulatory ARELIS SMITH Facility:[facility] Start: 09-26-2024 End: 09-26-2024 Telephone encounter Basim Joel BROKERAGE CLERK - [employer] Work Phone: [facility] [place] Start: 09-26-2024 ambulatory ARELIS SMITH Facility:[facility] Start: 09-19-2024 End: 09-19-2024 Office outpatient visit 25 minutes Basim Joel BROKERAGE CLERK - [employer] Work Phone: [facility] Comment on above: Aortic valve stenosi s, etiology of cardiac valve disease unspecified (Primary Dx); Deep vein thrombosis (DVT) of proximal vein of both lower extremities, unspecified chronicity (HCC); Acute systolic heart failure (HCC); Lares's disease (HCC); Renal insufficiency; Recurrent UTI Start: 09-19-2024 End: 09-19-2024 ambulatory BASIM WISAM [facility] Start: 09-19-2024 End: 09-23-2024 Telephone encounter Arelis Smith BROKERAGE CLERK.[employer] Work Phone: Urology Comment on above: Consult Start: 09-19-2024 End: 09-19-2024 Subsequent hospital visit by physician Dylon Gupta BROKERAGE CLERK - [employer] Work Phone: [facility] [address] Comment on above: Nonrheumatic aortic valve stenosis Start: 09-19-2024 End: 09-19-2024 ambulatory [facility] Start: 09-19-2024 End: 09-19-2024 Office consultation new/estab patient 60 min Arelis Smith BROKERAGE CLERK.[employer] Work Phone: Urology Comment on above: Recurrent UTI (Prima ry Dx); History of kidney stones Start: 09-19-2024 End: 09-19-2024 ambulatory ARELIS SMITH [facility] Start: 09-12-2024 End: 09-19-2024 Telephone encounter Amos Floyd MD Work Phone: [facility] [place] Comment on above: Patient Question Start: 09-10-2024 End: 09-10-[address] Amos Floyd MD Work Phone: -Laboratory Start: 09-10-2024 End: 09-10-[address] Amos Floyd MD Work Phone: -Laboratory Work Phone: Start: 09-10-2024 End: 09-10-2024 ambulatory RYA1 RAYGOZA Facility:[facility] Start: 09-03-2024 End: 09-03-2024 Office consultation new/estab patient 80 min Baldo De La Cruz MD Work Phone: [facility] [employer] [facility] Comment on above: Severe aortic stenos is (Primary Dx) Start: 09-03-2024 End: 09-03-2024 Office outpatient visit 40 minutes Memo Canas MD Work Phone: [facility] [place] Comment on above: Nonrheumatic aortic valve stenosis (Primary Dx) Start: 09-03-2024 End: 09-03-2024 Orders Only Dylon Gupta APRN - [employer] Work Phone: [facility] [employer] [facility] Comment on above: Nonrheumatic aortic valve stenosis (Primary Dx) Start: 08-31-2024 End: 09-02-2024 Follow-up encounter Amos Floyd MD Work Phone: [facility] [place] Start: 08-29-2024 End: 08-29-2024 Office outpatient visit 25 minutes Amos Floyd MD Work Phone: [facility] [place] Comment on above: Acute deep vein thro mbosis (DVT) of proximal vein of both lower extremities (HCC) (Primary Dx); Adrenal insufficiency (HCC); Primary hypertension; History of UTI; Nonrheumatic aortic valve stenosis; Thyroid nodule greater than or equal to 1 cm in diameter incidentally noted on imaging study, right side. Start: 08-29-2024 End: 08-29-2024 ambulatory AMOS FLOYD Facility:[facility] Start: 08-22-2024 End: 08-22-2024 Patient Outreach Annemarie Read RN Industrial Sales Engineer Management Comment on above: Weekly phone contact (Recurring) for Transitional Care Management Start: 08-20-2024 End: 08-20-2024 Follow-up encounter Amos Floyd MD Work Phone: [facility] [place] Start: 08-19-2024 End: 08-19-2024 Telephone encounter Amos Floyd MD Work Phone: [facility] [place] Comment on above: Patient Update Start: 08-16-2024 End: 08-16-2024 ambulatory Amos Floyd MD Work Phone: [facility] [place] Start: 08-16-2024 End: 08-16-2024 Follow-up encounter Amos Floyd MD Work Phone: [facility] [place] Comment on above: Follow up Start: 08-15-2024 End: 08-15-2024 Patient Outreach Annemarie Read RN Industrial Sales Engineer Management Comment on above: Initial phone contac t for Transitional Care Management Start: 08-14-2024 End: 08-14-2024 Office outpatient visit 25 minutes Amos Floyd MD Work Phone: [facility] [place] Comment on above: Acute deep vein thro mbosis (DVT) of proximal vein of both lower extremities (HCC) (Primary Dx); Other specified hypotension; Adrenal insufficiency (HCC); Nonrheumatic aortic valve stenosis; Acute cystitis without hematuria Start: 08-14-2024 End: 08-14-2024 ambulatory SELF Facility:[facility] Start: 08-09-2024 Non-patient / Non-visit Dr. Jairo ramos DO -[facility] Work Phone: Start: 08-08-2024 Non-patient / Non-visit Dr. Deidre Toro MD -[facility] Work Phone: Start: 08-07-2024 ambulatory Nixon Sidhu ty:[facility] Start: 08-07-2024 End: 08-09-2024 Evaluation and management of inpatient Dr. Nixon de Gelacio DO -Intensive Care Unit Work Phone: Start: 08-05-2024 End: 08-05-2024 Admission to same day surgery center Dr. Jordan Marte MD -Respiratory Scientist/Special Procedures Work Phone: Start: 08-05-2024 End: 08-05-[address] Amos Floyd MD Work Phone: [facility] Work Phone: Start: 07-24-2024 End: 07-24-2024 Office outpatient visit 25 minutes Amos Floyd MD Work Phone: [facility] [place] Comment on above: ASHD (arteriosclerot ic heart disease) (Primary Dx); Primary hypertension; Nonrheumatic aortic valve stenosis; Subconjunctival hemorrhage of left eye; Chronic nonallergic rhinitis; Stage 3b chronic kidney disease (HCC); Adrenal insufficiency (HCC); Encounter for immunization Start: 07-24-2024 End: 07-24-2024 ambulatory AMOS FLOYD Facility:[facility] Start: 07-23-2024 End: 07-23-2024 Patient encounter procedure Heaven VASQUEZ -[facility] Work Phone: Start: 07-23-2024 End: 07-23-[address] Amos Floyd MD Work Phone: [facility] Work Phone: Start: 07-21-2024 ambulatory Basim DISLA Facility:[facility] Start: 07-10-2024 End: 07-10-2024 ambulatory AMOS FLOYD Facility:[facility] Start: 07-05-2024 End: 07-05-2024 ambulatory AMOS FLOYD Facility:[facility] Start: 07-03-2024 ambulatory Amos Floyd Facili ty:[facility] Start: 07-03-2024 Non-patient / Non-visit Dr. Salena ZELAYA -[facility] Start: 07-03-2024 End: 07-03-2024 Patient encounter procedure Tucker DISLA -Cardiovascular Services Work Phone: Start: 07-03-2024 End: 07-03-[address] Amos Floyd MD Work Phone: [facility] Work Phone: Start: 06-21-2024 End: 06-21-2024 Discharged Recurring Basim Velasquez PA -Laboratory Work Phone: Start: 06-21-2024 Registered Recurring Basim Velasquez PA -Laboratory Work Phone: Start: 06-21-2024 End: 06-21-[address] Amos Floyd MD Work Phone: [facility] Work Phone: Start: 06-19-2024 End: 06-19-2024 Orders Only Brissa Wright BROKERAGE CLERK.[employer] Work Phone: [facility] Comment on above: Thyroid nodule (Prim christ Dx) Allied Health Visit (Medication Adherence Outreach ) Start: 05-24-2024 Non-patient / Non-visit Dr. Salena ZELAYA -[facility] Start: 05-24-2024 End: 05-24-2024 Patient encounter procedure Tucker Reyes PA -Cardiovascular Services Work Phone: Start: 05-24-2024 End: 06-19-2024 Discharged Recurring Basim Velasquez PA -Laboratory Work Phone: Start: 05-24-2024 Registered Recurring Basim Velasquez PA -Laboratory Work Phone: Start: 05-24-2024 End: 06-19-[address] Amos Floyd MD Work Phone: [facility] Work Phone: Start: 05-24-2024 End: 05-24-2024 ambulatory Tucker Reyes Facility:[facility] Start: 05-14-2024 End: 05-14-2024 ambulatory Amos Floyd MD Work Phone: [facility] Comment on above: Allied Health Visit (Medication Adherence Outreach/) Start: 04-29-2024 End: 04-29-2024 Patient encounter procedure Tucker DISLA -[facility] Work Phone: Start: 04-29-2024 End: 04-29-2024 ambulatory Amos Floyd Facility:[facility] Start: 04-26-2024 End: 04-26-2024 Discharged Recurring Basim DISLA -Laboratory Work Phone: Start: 04-26-2024 End: 04-26-[address] Amos Floyd MD Work Phone: [facility] Work Phone: Start: 04-05-2024 End: 04-05-2024 ambulatory Del Saravia MA [facility] [place] Start: 04-05-2024 End: 04-05-2024 Patient encounter procedure Del Saravia [facility] [place] Comment on above: Population Health Na vigation Outreach ([employer] High Risk - 1st attempt/) Start: 04-03-2024 End: 04-03-[address] Jennifer Tarango DO -Laboratory Work Phone: Start: 04-03-2024 End: 04-03-2024 ambulatory Jennifer Tarango Facility:[facility] Start: 03-21-2024 End: 03-22-2024 ambulatory Basim DISLA Facility:[facility] Start: 03-21-2024 End: 03-22-2024 Discharged Recurring Basim Velasquez PA -Laboratory Work Phone: Start: 02-22-2024 End: 02-22-2024 Telephone encounter Amos Floyd MD Work Phone: [facility] [place] Comment on above: Results Start: 02-01-2024 End: 02-01-2024 Subsequent hospital visit by physician Genna [facility] ([facility]-Stat) Work Phone: Cat Scan Comment on above: Nodule of lower lobe of right lung [R91.1] Start: 02-01-2024 End: 02-01-2024 ambulatory AMOS FLOYD Facility:[facility] Start: 01-23-2024 End: 01-23-2024 ambulatory AMOS FLOYD Facility:[facility] Start: 01-23-2024 End: 01-23-2024 Patient encounter procedure [...] Start: 01-11-2024 End: 01-11-2024 ambulatory AMOS FLOYD Facility:[facility] Start: 01-04-2024 End: 01-20-2024 ambulatory Basim DISLA Facility:[facility] Start: 01-01-2024 End: 01-01-2024 ambulatory AMOS FLOYD Facility:[facility] Start: 01-01-2024 End: 01-01-2024 Subsequent hospital visit by physician Dao [facility] [place] Work Phone: Radiology Comment on above: [...] Start: 12-29-2023 End: 12-29-2023 ambulatory AMOS FLOYD Facility:[facility] Start: 12-26-2023 End: 12-28-2023 Telephone encounter Amos Floyd MD Work Phone: [facility] [place] Comment on above: Results Start: 12-21-2023 End: 12-21-2023 ambulatory Amos Floyd Facility:[facility] Start: 12-20-2023 End: 12-20-2023 Patient encounter procedure Nathaly Ren APRN.[employer] Work Phone: [facility] Comment on above: Radiology Review Start: 12-20-2023 End: 12-20-2023 Telephone encounter Nathaly Ren APRN.[employer] Work Phone: [facility] Start: 12-14-2023 End: 12-20-2023 ambulatory NATHALY REN Facility:[facility] Start: 12-06-2023 End: 12-07-2023 Refill Amos Floyd MD Work Phone: [facility] [place] Comment on above: Refill Request Start: 12-05-2023 End: 12-11-2023 Telephone encounter Amos Floyd MD Work Phone: [facility] [place] Comment on above: Insurance Authorizat ion Start: 11-28-2023 End: 12-01-2023 Refill Amos Floyd MD Work Phone: [facility] [place] Start: 11-14-2023 End: 11-14-2023 ambulatory Echo Miller RN Work Phone: Industrial Sales [employer] Management Start: 11-11-2023 End: 11-11-2023 ambulatory AMOS FLOYD Facility:[facility] Start: 09-19-2023 End: 09-19-2023 ambulatory Kole El PT Work Phone: [facility] Comment on above: Physical decondition ing (Primary Dx); Gait abnormality; Weakness Start: 09-12-2023 End: 09-12-2023 ambulatory Kole Sienna PT Work Phone: [facility] Comment on above: Physical decondition ing (Primary Dx); Gait abnormality; Weakness Start: 09-08-2023 End: 09-08-2023 ambulatory Koleberny El PT Work Phone: [facility] Comment on above: Physical decondition ing (Primary Dx); Gait abnormality; Weakness Start: 09-06-2023 End: 01-15-2024 ambulatory Amos Floyd MD Work Phone: [facility] [place] Start: 09-06-2023 End: 01-15-2024 Follow-up encounter Amos Floyd MD Work Phone: [facility] [place] Comment on above: Patient followup Start: 08-30-2023 End: 08-30-2023 ambulatory Kole El PT Work Phone: [facility] Comment on above: Physical decondition ing (Primary Dx); Gait abnormality; Weakness Start: 08-21-2023 End: 08-21-2023 ambulatory Gisel Kimuna SALES AUDIT CLERK Work Phone: [facility] Comment on above: Physical decondition ing (Primary Dx); Gait abnormality; Weakness Start: 08-17-2023 E-mail encounter fro m caregiver Nathaly Ren APRN.[employer] Work Phone: [facility] Start: 08-17-2023 Patient encounter procedure Nathaly Ren APRN.[employer] Work Phone: [facility] Comment on above: Actionable Finding Start: [...] Amos maria MD Work Phone: [facility] [place] Comment on above: Hypertension Start: 08-02-2023 End: [...] Amos Floyd MD Work Phone: [facility] [place] Comment on above: Hypercalcemia (Prima ry Dx); Age-related osteoporosis with current pathological fracture with routine healing; Hypokalemia; Adrenal hypofunction (HCC); NSTEMI (non-ST elevated myocardial infarction) (HCC); ASHD (arteriosclerotic heart disease); Nonrheumatic aortic valve stenosis Start: 06-28-2023 End: 06-28-2023 ambulatory Kole Sienna PT Work Phone: [facility] Comment on above: Physical decondition ing (Primary Dx); Gait abnormality; Weakness Start: 06-21-2023 End: 06-21-2023 ambulatory Kole El PT Work Phone: [facility] Comment on above: Physical decondition ing (Primary Dx); Gait abnormality; Weakness Start: 06-19-2023 Telephone encounter Delfino yost BROKERAGE CLERK.[employer] Work Phone: [facility] Cardiology [place] Comment on above: Appointment Start: 06-19-2023 End: 06-20-[address] Amos Floyd Work Phone: [facility] Work Phone: Start: 06-19-2023 End: 06-20-[address] Amos Floyd Work Phone: [facility] Work Phone: Start: 06-14-2023 End: 06-14-2023 ambulatory Kole El PT Work Phone: [facility] Comment on above: Physical decondition ing (Primary Dx); Gait abnormality; Muscle weakness Start: 06-09-2023 ambulatory Rocio alexander APRN.[employer] Work Phone: [facility] Start: 06-09-2023 Evaluation and management of inpatient Rocio Elizalde APRN.[employer] Work Phone: [facility] [place] Comment on above: is inpatient a t [facility] Start: 06-08-2023 ambulatory Amos salazar MD Work Phone: [facility] [place] Comment on above: Chest Pain Start: 06-07-2023 Telephone encounter Rocio gomez APRN.[employer] Work Phone: [facility] [place] Comment on above: Blood Pressure Start: 05-31-2023 End: 05-31-[address] Amos Floyd Work Phone: [facility] Work Phone: Comment on above: Physical decondition ing (Primary Dx); Muscle weakness; Gait abnormality Start: 05-31-2023 Telephone encounter Amos maria MD Work Phone: [facility] [place] Comment on above: Clinical Update Start: 05-31-2023 End: 05-31-[address] Amos Floyd Work Phone: [facility] Work Phone: Start: 05-31-[address] Jenni Floyd Work Phone: [facility] Work Phone: Start: 05-31-2023 End: 05-31-2023 Patient encounter procedure Rocio Elizalde APRN.[employer] Work Phone: [facility] [place] Comment on above: Other specified hypo tension (Primary Dx); Moris's disease (HCC); Hypercalcemia Start: 05-31-2023 End: 05-31-2023 ambulatory Kole El PT Work Phone: [facility] Comment on above: Gait abnormality (Pr imary Dx); Physical deconditioning; Weakness Start: 05-24-2023 End: 05-26-2023 ambulatory Rocio Elizalde APRN.[employer] Work Phone: [facility] Start: 05-24-2023 Evaluation and management of inpatient Rocio Elizalde APRN.[employer] Work Phone: [facility] [place] Comment on above: is inpatient a daan IRA KRYSTEN Start: 05-24-2023 End: 05-26-2023 Evaluation and management of inpatient [facility] Start: 05-23-2023 End: 05-24-2023 Emergency department patient visit Dr. Amos Floyd Work Phone: [facility]Emergency Department Work Phone: Start: 05-23-2023 Telephone encounter Hung Freed MD Work Phone: [facility] Comment on above: Results Start: 05-23-2023 End: 05-23-2023 Patient encounter procedure Rocio Jorge Fide BROKERAGE CLERK.[employer] Work Phone: [facility] [place] Comment on above: Hypercalcemia (Prima ry Dx); Fatigue, unspecified type; Urinary frequency; Myalgias; Confusion; Weakness Start: 05-22-2023 Telephone encounter Amos maria MD Work Phone: [facility] [place] Comment on above: Patient Question Start: 05-19-2023 ambulatory Amos salazar MD Work Phone: [facility] Start: 05-19-2023 Follow-up encounter Amos maria MD Work Phone: [facility] [place] Comment on above: Zometa medication/ E R visit followup care. Start: 05-15-2023 End: 05-15-2023 Emergency department patient visit Dr. Amos Floyd Work Phone: [facility]Emergency Department Work Phone: Start: 05-15-2023 Telephone encounter Amos maria MD Work Phone: Internal [facility] Comment on above: Patient Update Start: 05-09-2023 End: 05-09-2023 ambulatory José Shi PT, DPT [facility] [...] 04-20-[address] Amos Floyd Work Phone: [facility] Work Phone: Start: 2023 End: 04-20-[address] Amos Floyd Work Phone: [facility] Work Phone: Start: [address] Jenni Floyd Work Phone: [facility] Work Phone: Start: 04-11-2023 End: 04-11-2023 ambulatory Kole El PT Work Phone: [facility] Comment on above: Gait abnormality (Pr imary Dx); Hip pain, unspecified laterality; Closed displaced fracture of fifth metatarsal bone of right foot with delayed healing, subsequent encounter Start: 04-10-2023 Non-patient / Non-visit Dr. Atiya Floyd Work Phone: [facility] Start: 04-10-2023 End: 04-10-[address] Amos Floyd Work Phone: [facility] Work Phone: Start: 04-10-2023 End: 04-10-[address] Amos Floyd Work Phone: [facility]Cardiovascula r Services Work Phone: Start: 04-04-2023 End: 04-04-[address] Amos Floyd Work Phone: [facility] Work Phone: Start: 04-04-2023 End: 04-04-[address] Amos Floyd Work Phone: [facility]-Laboratory, Phy Office 3rd Flr Start: 04-03-2023 End: 04-03-2023 ambulatory Kole El PT Work Phone: [facility] Comment on above: Gait abnormality (Pr imary Dx); Hip pain, unspecified laterality; Closed displaced fracture of fifth metatarsal bone of right foot with delayed healing, subsequent encounter Start: 03-28-[address] Jenni Floyd [facility] Start: 03-28-2023 End: 03-28-2023 ambulatory [...] fro m caregiver Omar Cruz Work Phone: [facility] Start: 03-03-2023 End: 03-03-[address] Amos Floyd Work Phone: [facility] Work Phone: Start: 02-24-2023 End: 02-24-[address] Amos Floyd Work Phone: [facility] Work Phone: Start: 02-24-2023 End: 02-24-[address] Amos Floyd [facility] Start: 02-08-2023 End: 02-19-[address] Amos Floyd Work Phone: [facility] Work Phone: Start: 02-08-2023 End: 02-19-[address] Amos Floyd [facility] Start: 01-19-2023 End: 01-19-2023 Patient encounter procedure Amos Floyd MD Work Phone: [facility] [place] Comment on above: Medicare annual well ness visit, subsequent (Primary Dx); Primary hypertension; Pure hypercholesterolemia; Atopic neurodermatitis; Adrenal hypofunction (HCC); Disorder of autonomic nervous system; Stage 3b chronic kidney disease (HCC); Age-related osteoporosis with current pathological fracture with routine healing; Need for COVID-19 vaccine; Hypercalcemia Start: 01-18-2023 End: 01-18-2023 Subsequent hospital visit by physician Xr [facility] [employer] Work Phone: Radiology Comment on above: Closed displaced fra cture of fifth metatarsal bone of right foot, initial encounter [V22.351A] Start: 12-23-2022 End: 01-19-[address] Amos Floyd Work Phone: [facility] Work Phone: Start: 12-23-2022 End: 01-19-[address] Amos Floyd Work Phone: [facility] Work Phone: Start: 12-19-2022 End: 12-19-2022 Patient encounter procedure Omar Eduardolakeisha Work Phone: Podiatry Comment on above: Closed displaced fra cture of fifth metatarsal bone of right foot, initial encounter (Primary Dx) Start: 12-19-2022 End: 12-19-2022 Subsequent hospital visit by physician Xr [facility] [employer] Work Phone: Radiology Comment on above: Closed displaced fra cture of fifth metatarsal bone of right foot, initial encounter [S92.351A] Start: 12-08-2022 End: 12-08-[address] Amos Floyd Work Phone: [facility] Work Phone: Start: 12-08-2022 End: 12-08-[address] Amos Floyd Work Phone: [facility] Work Phone: Start: 12-02-2022 Refill Amos salazar MD Work Phone: [phone] [place] [address] Comment on above: Refill Request Start: 12-01-2022 End: 12-01-2022 Subsequent hospital visit by physician Dao [facility] [place] [employer] Work Phone: Radiology Comment on above: Closed displaced fra cture of fifth metatarsal bone of right foot, initial encounter [S92.351A] Start: 11-25-2022 End: 11-25-[address] Amos Floyd Work Phone: [facility] Work Phone: Start: 11-24-2022 End: 11-24-[address] Amos Floyd Work Phone: [facility] Work Phone: Start: 11-08-2022 End: 11-08-2022 Subsequent hospital visit by physician Dao [facility] [employer] Work Phone: Radiology Comment on above: Foot pain, right [M7 9.671] Start: 11-08-2022 End: 11-08-2022 Patient encounter procedure Jacinda Enriquez APRN.[employer] Work Phone: [facility] Comment on above: Foot pain, right (Pr imary Dx); Closed fracture of right foot, initial encounter Start: 11-01-2022 End: 11-01-2022 ambulatory Kole El PT Work Phone: [facility] Comment on above: Hip pain, unspecifie d laterality [M25.559] (Primary Dx) Start: 10-26-2022 End: 10-26-[address] Amos Floyd Work Phone: [facility] Work Phone: Start: 10-26-2022 End: 10-26-[address] Amos Floyd Work Phone: [facility] Work Phone: Start: 10-26-2022 End: 10-26-2022 Subsequent hospital visit by physician Dao [facility] [place] Work Phone: Radiology Comment on above: Hip pain, unspecifie d laterality [M25.559] Start: 10-26-2022 End: 10-26-2022 Patient encounter procedure Amos Floyd MD Work Phone: [facility] [place] Comment on above: Hip pain, unspecifie d laterality (Primary Dx); Stage 3b chronic kidney disease (HCC); Deep vein thrombosis (DVT) of lower extremity, unspecified chronicity, unspecified laterality, unspecified vein (HCC); Need for influenza vaccination Start: 10-11-2022 End: 10-11-[address] Amos Floyd Work Phone: [facility] Work Phone: Start: 10-11-2022 End: 10-11-[address] Amos Floyd [facility]: Start: 09-19-2022 Refill Nevin Brooks Work Phone: Dermatology Comment on above: Refill Request Start: 09-12-2022 End: 09-19-[address] Amos Floyd Work Phone: [facility] Work Phone: Start: 09-12-2022 End: 09-19-[address] Amos Floyd [facility]: Start: 08-11-2022 End: 08-11-[address] Amos Floyd Work Phone: [facility] Work Phone: Start: 08-11-2022 End: 08-11-[address] Amos Floyd [facility] Start: 08-04-2022 End: 08-04-[address] Amos Floyd Work Phone: [facility] [place] [facility] Work Phone: Start: 07-27-2022 Telephone encounter Ryan rick MD Work Phone: Dermatology Comment on above: Building Code Inspector - O ther Start: 07-26-2022 End: 07-26-[address] Amos Floyd [facility] Start: 07-22-2022 Telephone encounter Ryan rick MD Work Phone: Dermatology Comment on above: Patient Question Start: 07-20-2022 End: 07-20-2022 Patient encounter procedure Rocio Johnson APRN.[employer] Work Phone: [facility] [place] Comment on above: Primary hypertension (Primary Dx); Pure hypercholesterolemia; Stage 3b chronic kidney disease (HCC); ASHD (arteriosclerotic heart disease); Osteopenia, unspecified location Start: 07-08-2022 End: 07-20-[address] Amos Floyd Work Phone: [facility] Work Phone: Start: 07-08-2022 End: 07-20-[address] Amos Floyd [facility] Start: 06-07-2022 End: 06-07-[address] Amos Floyd Work Phone: [facility] Work Phone: Start: 06-07-2022 End: 06-07-[address] Amos Floyd [facility] Start: 05-31-2022 End: 05-31-[address] Amos Floyd Work Phone: [facility] Work Phone: Start: 05-31-2022 End: 05-31-[address] Amos Floyd Work Phone: [facility] Start: 05-27-2022 End: 05-27-[address] Amos Floyd Work Phone: [facility] Start: 05-25-2022 End: 05-25-2022 Patient encounter procedure Ryan Gale MD Work Phone: Dermatology Comment on above: Atopic neurodermatit is (Primary Dx) Start: 05-09-2022 End: 05-20-[address] Amos Floyd Work Phone: [facility] Work Phone: Start: 05-09-2022 End: 05-20-[address] Amos Floyd [facility] Start: 03-25-2022 Non-patient / Non-visit Dr. Atiya Floyd Work Phone: [facility] Start: 03-25-2022 End: 03-25-[address] Amos Floyd Work Phone: [facility] Work Phone: Start: 03-25-2022 End: 03-25-[address] Amos Floyd [facility] Start: 03-15-2022 Telephone encounter Ryan rick MD Work Phone: Dermatology Comment on above: Insurance Authorizat ion ([employer]) Start: 03-14-2022 Refill Ryan Gaitan Work Phone: Dermatology Comment on above: Refill Request Start: 03-10-2022 End: 03-10-[address] Amos Floyd Work Phone: [facility] Work Phone: Start: 03-10-2022 End: 03-10-[address] Amos Floyd [facility] Start: 02-23-2022 End: 02-23-2022 Patient encounter procedure Ryan Gale MD Work Phone: Dermatology Comment on above: Atopic neurodermatit is (Primary Dx) Start: 02-15-2022 End: 02-15-[address] Amos Floyd Work Phone: [facility] Work Phone: Start: 02-15-2022 End: 02-15-[address] Amos Floyd Work Phone: [facility] Start: 01-27-[address] Jenni Floyd Work Phone: [facility] Start: 01-25-2022 End: 01-25-[address] Amos Floyd Work Phone: [facility] Work Phone: Start: 01-25-2022 End: 01-25-[address] Amos Floyd Work Phone: [facility] Start: 12-28-2021 End: 01-19-[address] Amos Floyd Work Phone: [facility] Work Phone: Start: 12-28-2021 End: 01-19-[address] Amos Floyd [facility] Start: 12-20-2021 End: 12-20-2021 Patient encounter procedure Rocio Older BROKERAGE CLERK.[employer] Work Phone: [facility] [place] Comment on above: Medicare annual well ness visit, subsequent (Primary Dx); Hypertension, unspecified type; Pure hypercholesterolemia; Encounter for immunization Start: 12-13-2021 End: 12-13-[address] Amos Floyd Work Phone: [facility] Start: 12-08-2021 Documentation procedure Mammog akash Coordinator [facility] Start: 12-08-2021 Letter encounter Mammography Coordinator [facility] Start: 12-08-2021 End: 12-08-2021 Subsequent hospital visit by physician Screen Mammo [facility] Comment on above: Encounter for screen ing mammogram for malignant neoplasm of breast [Z12.31] Start: 12-06-2021 End: 12-06-2021 Patient encounter procedure Amos Floyd MD Work Phone: [facility] [place] Comment on above: Hypotension due to h ypovolemia (Primary Dx); Elevated troponin; Acute kidney injury (HCC); Stage 3b chronic kidney disease (HCC); Hypercalcemia; Anticoagulated on Coumadin; Breast pain, left; Encounter for screening mammogram for malignant neoplasm of breast Start: 12-02-2021 Refill Amos salazar MD Work Phone: [address] [place] [address] Comment on above: Refill Request Start: 12-02-2021 End: 12-02-[address] Amos Floyd Work Phone: [facility] Start: 11-26-2021 End: 11-26-[address] Amos Floyd Work Phone: [facility] Start: 11-25-2021 End: 11-25-2021 Patient encounter procedure Ryan Gale MD Work Phone: Dermatology Comment on above: Atopic neurodermatit is (Primary Dx) Start: 11-24-2021 End: 11-24-[address] Amos Floyd Work Phone: [facility] Work Phone: Start: 11-24-2021 End: 11-24-[address] Amos Floyd Work Phone: [facility]-Laboratory, Phy Office 3rd Flr Start: 11-18-2021 Non-patient / Non-visit Dr. Atiya Floyd Work Phone: [facility] Start: 11-17-2021 Non-patient / Non-visit Dr. Atiya Floyd Work Phone: [facility] Start: 11-17-2021 Non-patient / Non-visit Dr. Atiya Floyd Work Phone: [facility] Start: 11-17-2021 Non-patient / Non-visit Dr. Atiya Floyd Work Phone: [facility] Start: 11-17-2021 End: 11-18-2021 Evaluation and management of inpatient [facility]Intensive Care Unit Start: 11-02-2021 End: 11-02-[address] Amos Floyd Work Phone: [facility] Work Phone: Start: 11-02-2021 End: 11-02-[address] Amos Floyd Work Phone: [facility] Start: 11-02-2021 Registered Recurring [facility] Start: 10-28-2021 ambulatory Luciana montes RN Work Phone: Industrial Sales Engineer Management Comment on above: 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 (enrollment/HAH) Start: 10-14-2021 Telephone encounter Jefferson guzman APRN.[employer] Work Phone: [facility] Comment on above: Results Start: 10-13-2021 End: 10-13-2021 Patient encounter procedure Irene Mendenhall APRN.[employer] Work Phone: [facility] Comment on above: Suspected COVID-19 v irus infection (Primary Dx) Start: 09-28-2021 End: 09-28-[address] Amos Floyd Work Phone: [facility] Work Phone: Start: 09-28-2021 End: 09-28-[address] Amos Floyd Work Phone: [facility] Start: 08-30-2021 End: 09-19-[address] Amos Floyd Work Phone: [facility] Start: 08-25-2021 End: 08-25-2021 Patient encounter procedure Nevin Lee PA-C Work Phone: Dermatology Comment on above: Atopic neurodermatit is (Primary Dx) Start: 07-26-2021 End: 07-26-[address] Amos Floyd Work Phone: [facility] Start: 07-20-2021 End: 07-20-2021 Patient encounter procedure Amos Floyd MD Work Phone: [facility] [place] Comment on above: Adrenal hypofunction (HCC) (Primary Dx); Primary hypertension; ASHD (arteriosclerotic heart disease); Hip pain; Need for COVID-19 vaccine Start: 07-12-2021 End: 07-12-[address] Amos Floyd Work Phone: [facility] Start: 06-25-2021 End: 06-25-[address] Amos Floyd Work Phone: [facility] Start: 05-27-2021 End: 05-27-[address] Amos Floyd Work Phone: [facility] Start: 05-27-2021 End: 05-27-[address] Amos Floyd Work Phone: [facility] Start: 05-27-[address] Jenni Floyd Work Phone: [facility] Start: 04-29-2021 End: 05-20-[address] Amos Floyd [facility] Start: 04-28-2021 Non-patient / Non-visit Dr. Atiya Floyd Work Phone: [facility] Start: 04-28-2021 End: 04-28-[address] Amos Floyd Work Phone: [facility]Cardi[facility] Start: 2021 End: [address] Amos Floyd Work Phone: [facility] Start: 03-31-2021 End: 03-31-[address] Amos Floyd Work Phone: [facility] Start: 03-02-2021 End: 03-22-[address] Amos Floyd [facility] Start: 02-01-2021 End: 02-20-[address] Amos Floyd Work Phone: [facility] Start: 04-28-2020 Evaluation and management of inpatient ARUNBerny CALERO Facility:[facility] Start: 01-17-2018 Ambulatory [facility] Facility :[facility] Start: 01-17-2017 End: 01-17-2017 Ambulatory [facility] Facility:[facility] Start: 04-09-2009 End: 05-14-2009 Patient encounter status Kole El PT Work Phone: [facility] Procedures Date Procedure Procedure Detail Performing Clinician Start: 12-10-2024 Us retroperitoneal r eal time w/image complete MEMO CANAS Work Phone: Start: 12-03-2024 Serum inorganic phos phate measurement [employer]O CANAS Work Phone: Start: 11-28-2024 Echo tthrc r-t 2d w/wom-mode compl spec&colr d Dylon Gupta BROKERAGE CLERK - [employer] Work Phone: Start: 11-28-2024 Adult depression scr eening assessment Basim Joel BROKERAGE CLERK - [employer] Work Phone: Start: 10-31-2024 Basic metabolic pane l calcium total Basim Joel BROKERAGE CLERK - [employer] Work Phone: Start: 10-29-2024 Ecg routine ecg w/le ast 12 lds i&r only [facility] Provider Start: 10-24-2024 TTE w or wo fol wcon,Doppler Dylon Gupta BROKERAGE CLERK - [employer] Work Phone: Start: 10-24-2024 Ecg routine ecg w/le ast 12 lds trcg only w/o i&r Dylon Gupta BROKERAGE CLERK - [employer] Work Phone: Start: 10-24-2024 Basic metabolic pane l calcium total Dylon Gupta BROKERAGE CLERK - [employer] Work Phone: Start: 10-23-2024 Echo transthorc r-t 2d w/wo m-mode rec f-up/lmtd Memo Canas MD Work Phone: Start: 10-23-2024 Ecg routine ecg w/le ast 12 lds trcg only w/o i&r Dylon Gupta BROKERAGE CLERK - [employer] Work Phone: Start: 10-23-2024 Basic metabolic pane l calcium total Dylon Gupta BROKERAGE CLERK - [employer] Work Phone: Start: 10-23-2024 OXYGEN THERAPY Dylon soria BROKERAGE CLERK - [employer] Work Phone: Start: 10-23-2024 Cardiac catheterizat ion study Memo Canas MD Work Phone: Start: 10-23-2024 POCT ACT Memo krishna MD Work Phone: Start: 10-23-2024 Blood typing serologic abo Memo Canas MD Work Phone: Start: 10-23-2024 End: 10-23-2024 TRANSCATHETER AORTIC VALVE REPLACEMENT (TAVR) - OR William Self DO Work Phone: Start: 10-23-2024 Radiologic exam ches t single view Dylon Gupta BROKERAGE CLERK - [employer] Work Phone: Start: 10-23-2024 Antibody screen BALDO JARRETT Comment on above: Performed By: #### L [id number] ####Solid State Tester: JAQUELIN RICO ([id number])[facility] ([facility])[address] [place] [address] Start: 10-23-2024 Blood typing serologic abo Dylon Gupta BROKERAGE CLERK - [employer] Work Phone: Start: 09-29-2024 Ecg routine ecg w/le ast 12 lds w/i&r Memo Canas MD Work Phone: Start: 09-19-2024 Ecg routine ecg w/le ast 12 lds trcg only w/o i&r Memo Canas MD Work Phone: Start: 09-19-2024 BLADDER SCAN Arelis gonzalez BROKERAGE CLERK.[employer] Work Phone: Start: 09-19-2024 Ct angiography chest w/contrast/noncontrast Dylon Gupta BROKERAGE CLERK - [facility] Work Phone: Start: 09-19-2024 Culture bacterial quanttative colony count urine Arelis Smith BROKERAGE CLERK.[employer] Work Phone: Start: 09-19-2024 Urnls dip stick/tabl et rgnt auto w/o microscopy Arelis Smith BROKERAGE CLERK.[employer] Work Phone: Start: 08-29-2024 Urnls dip stick/tabl [...] PFIZER-BIONTECH COVI D-19 VACCINE AGE 12+ YR ([facility]) mAos Floyd MD Work Phone: Start: 07-23-2024 X-ray of chest, PA a nd lateral views Dr. Amos Flody MD Work Phone: Start: 04-03-2024 Assay of phosphorus inorganic Dr. Amos Floyd MD Work Phone: Start: 04-03-2024 Measurement of renal function Dr. Amos Floyd MD Work Phone: Comment on above: GFR Calc Start: 01-23-2024 PFIZER-BIONTECH COVI D-19 VACCINE AGE 12+ YR ([facility]) Amos Floyd MD Work Phone: Start: [...] metabolic panel calcium total Raisa James Frederick BROKERAGE CLERK-[employer]FER [employer] Work Phone: Start: 05-26-2023 EXTRA TUBES Jazmine Britt MD Work Phone: Start: 05-26-2023 LAVENDER TOP Jazmine Britt MD Work Phone: Start: 05-26-2023 PST TOP Jazmine Britt MD Work Phone: Start: 05-26-2023 SST TOP Jazmine Britt MD Work Phone: Start: 05-25-2023 CALCIUM, IONIZED LEONARDOZA MANCY Start: 05-25-2023 Calcium ionized Dallasi chaparro Frederick BROKERAGE CLERK-[employer] Work Phone: Start: 05-25-2023 PROTIME-INR HAMZA MANC Y Start: 05-25-2023 EXTRA TUBES HAMZA MANC Y Start: 05-25-2023 Hemoglobin A1c/Hemoglobin.total in Blood HAMZA MANCY Start: 05-25-2023 LAVENDER TOP HAMZA MANC Y Start: 05-25-2023 PST TOP HAMZA MANC Y Start: 05-25-2023 SST TOP HAMZA MANC Y Start: 05-25-2023 EXTRA TUBES Jazmine Britt MD Work Phone: Start: 05-25-2023 End: 05-25-2023 Hemoglobin glycosylated a1c Raisa may BROKERAGE CLERK-[employer] Work Phone: Start: 05-25-2023 LAVENDER TOP Jazmine [...] 05-24-2023 Comprehensive metabo lic panel Shakira Antunez BROKERAGE CLERK-[employer]FER [employer] Work Phone: Start: 05-24-2023 EXTRA TUBES Elisa [...] End: 05-24-2023 Comprehensive metabolic panel Shakira Antunez BROKERAGE CLERK-[employer]FER [employer] Work Phone: Start: 05-23-2023 Plain chest X-ray Dr. Mt Floyd Work Phone: Start: 05-23-2023 Urnls dip stick/tabl et rgnt auto w/o microscopy Rocio Elizalde BROKERAGE CLERK.[employer] Work Phone: Start: 05-15-2023 CT of chest, abdomen and pelvis without contrast Dr. Amos Floyd Work Phone: Start: 05-15-2023 Plain chest X-ray Dr. Mt Floyd Work Phone: Start: 01-19-2023 [employer] COVI D-19 VACCINE (2022- [facility]) AGE 12+ YR Amos Floyd MD Work Phone: Start: 12-19-2022 Radex foot complete minimum 3 views Omar Cruz Work Phone: Start: 12-01-2022 Radex foot complete minimum 3 views Omar Cruz Work Phone: Start: 11-08-2022 Radex foot complete minimum 3 views Jacinda Enriquez BROKERAGE CLERK.[employer] Work Phone: Start: 10-26-2022 Radex hips bilateral with pelvis minimum 5 views Amos Floyd MD Work Phone: Start: 10-26-2022 INFLUENZA VACCINE, P RSV FREE, AGE 65+ YR, HIGH DOSE, QUADRIVALENT (FLUZONE HIGH-DOSE) Amos Floyd MD Work Phone: Start: 12-20-2021 PFIZER-BIONTECH COVI D-19 BIVALENT BOOSTER VACCINE, AGE 12+ YR Rocio Older BROKERAGE CLERK.[employer] Work Phone: Start: 12-08-2021 Screening mammograph y [...] DTaP/Tdap/Td Vaccines (2 - Td or Tdap) [facility] Start: 11-10-2029 Urine microalbumin profile [facility] Start: 10-25-2027 Diabetes Screening Diabetes Screening [facility] Start: 07-06-2027 Diabetes Screening Diabetes Screening [facility] Start: 01-31-2027 Diabetes Screening Diabetes Screening [facility] Start: 11-10-2026 Diabetes Screening Diabetes Screening [facility] Start: 08-30-2026 Diabetes Screening Diabetes Screening [facility] Start: 06-30-2026 Diabetes Screening Diabetes Screening [facility] Start: 06-12-2026 Diabetes Screening Diabetes Screening [facility] Start: 06-10-2026 Diabetes Screening Diabetes Screening [facility] Start: 06-07-2026 Diabetes Screening Diabetes Screening [facility] Start: 05-25-2026 Diabetes Screening Diabetes Screening [facility] Start: 05-22-2026 Diabetes Screening Diabetes Screening [facility] Start: 05-11-2026 Diabetes Screening Diabetes Screening [facility] Start: 01-18-2026 Diabetes Screening Diabetes Screening [facility] Start: 12-20-2025 Screening for osteoporosis Bone Density Screening [facility] Start: 11-28-2025 Depression Screening Depression Screening [facility] Start: 11-28-2025 Echocardiography Echocardiogram [facility] Start: 10-31-2025 Creatinine measurement Creatinine Level [facility] Start: 10-31-2025 Diabetes: Estimated Glomerular Filtration Rate for Kidney Health Diabetes: Estimated Glomerular Filtration Rate for Kidney Health [facility] Start: 10-31-2025 Potassium measurement Potassium Level [facility] Start: 10-24-2025 Creatinine measurement Creatinine Level [facility] Start: 10-24-2025 Echocardiography Echocardiogram [facility] Start: 10-24-2025 Potassium measurement Potassium Level [facility] Start: 10-23-2025 Creatinine measurement Creatinine Level [facility] Start: 10-23-2025 Echocardiography Echocardiogram [facility] Start: 10-23-2025 Potassium measurement Potassium Level [facility] Start: 01-31-2025 Creatinine measurement Serum Creatinine [facility] Start: 01-31-2025 Hepatitis B surface antibody level LDL Cholesterol [facility] Start: 01-22-2025 Annual PCP Team Chronic Disease Visit Annual PCP Team Chronic Disease Visit [facility] Start: 01-22-2025 Anxiety Screening Anxiety Screening [facility] Start: 01-22-2025 Depression Screening Depression Screening [facility] Start: 01-22-2025 End: 01-22-2025 Patient encounter procedure 01/22/2025 8:40 AM EST Office Visit [facility] [address] [place] [address] Amos Floyd MD [address] [place] [address] Annual Medicare Wellness w/6 month follow-up [facility] Comment on above: Annual Medicare Wellness w/6 month nat just[facility]up Start: 01-13-2025 End: 04-14-2025 Comprehensive metabolic 2000 panel - Serum or Plasma COMPREHENSIVE METABOLIC PANEL Lab Routine Pure hypercholesterolemia Expected: 01/13/2025, Expires: 04/14/2025 [facility] Work Phone: Comment on above: Expected: 01/13/2025, Expires: Start: 01-13-2025 End: 04-14-2025 Lipid 1996 panel - Serum or Plasma LIPID PANEL, FASTING Lab Routine Pure hypercholesterolemia Expected: 01/13/2025, Expires: 04/14/2025 [facility] Comment on above: Expected: 01/13/2025, Expires: Start: 01-13-2025 End: 01-13-2025 Nursing evaluation of patient and report 01/13/2025 9:00 AM EST Nurse Visit Family [facility] [address] [place], [place] [phone] Nurse, Ct [address] [place], [place] [phone] [facility] [place] [place] Comment on above: [facility] Start: 01-01-2025 End: 01-01-2025 Patient encounter procedure 01/01/2025 10:30 AM EST Office Visit [facility] Cardiology [facility] [address] [place] [phone] Jefferson Adorno MD [address] [place], [place] [phone] [facility] Start: 11-28-2024 End: 11-28-2025 Basic metabolic 1998 panel - Serum or Plasma Basic metabolic panel Lab Routine S/P TAVR (transcatheter aortic valve replacement) Expected: 11/28/2024 (Approximate), Expires: 11/28/2025 [facility] Work Phone: Comment on above: Expected: 11/28/2024 (Approximate), Expi res: 11/28/2025 Start: 11-28-2024 End: 11-28-2024 Patient encounter procedure [facility] [address] [facility] Non-Invasive Cardiology Start: 11-23-2024 End: 10-24-2026 US Heart Transthoracic Transthoracic echocardiogram (TTE) complete with contrast, bubble, strain, and 3D PRN CV Echocardiography Routine Severe aortic stenosis Expected: 11/23/2024 (Approximate), Expires: 10/24/2026 [facility] Work Phone: Comment on above: Expected: 11/23/2024 (Approximate), Expi res: 10/24/2026 Start: 11-14-2024 End: 11-14-2024 Evaluation of diagnostic study results [facility] Start: 11-10-2024 Creatinine measurement Serum Creatinine [facility] Start: 10-31-2024 End: 10-31-2024 Patient encounter procedure 10/31/2024 11:00 AM EDT Office Visit [facility] [address] [place] [phone] Basim Joel, BROKERAGE CLERK - ROOFER [employer]ATING [address] [facility] [address] [place] [address] [facility] Start: 10-29-2024 End: 10-29-2024 Patient encounter procedure 10/29/2024 10:40 AM EDT Office Visit [facility] [place] [address] [place] [address] Amos Floyd MD [address] [place] [address] 2 month follow-up [facility] [place] Comment on above: 2 month follow-up Start: 10-23-2024 End: 10-23-2024 Patient encounter procedure 10/23/2024 9:00 AM EDT Office Visit [facility] [address] [place] [phone] Noble Chowdary MD [address] [place] [address] [facility] Comment on above: [facility] Start: 10-23-2024 End: 10-23-2024 Admission to same day surgery center 10/23/2024 7:30 AM EDT - 10/23/2024 9:15 AM EDT Surgery [facility] [address] [facility] [place] [phone] Memo Canas MD [address] [facility] [address] [place] [address] TRANSCATHETER AORTIC VALVE REPLACEMENT, TRANSTHORACIC ECHOCARDIOGRAM [facility] Comment on above: TRANSCATHETER AORTIC VALVE REPLACEMENT, TRANSTHORACIC ECHOCARDIOGRAM Start: 10-23-2024 End: 10-23-2024 Anesthesia consultation 10/23/2024 7:30 AM EDT Anesthesia Event [facility] [address] [facility] [place] [phone] Ben Harris, BROKERAGE CLERK - COFFEE SAMPLER [address] [facility] [address] [place] [address] [facility] Start: 10-23-2024 Subsequent hospital visit by physician [facility] Comment on above: Severe aortic stenosis Start: 10-23-2024 End: 10-23-2024 TRANSCATHETER AORTIC VALVE REPLACEMENT (TAVR) - OR TRANSCATHETER AORTIC VALVE REPLACEMENT (TAVR) - OR Severe aortic stenosis 10/23/2024 7:30 AM EDT [facility] Start: 10-21-2024 Influenza vaccination Influenza Vaccine (#1) [facility] Start: 10-14-2024 End: 10-14-2025 Basic metabolic 1998 panel - Serum or Plasma Basic metabolic panel Lab Routine Severe aortic stenosis Expected: 10/14/2024 (Approximate), Expires: 10/14/[address] [facility] Work Phone: Comment on above: Expected: 10/14/2024 (Approximate), Expi res: 10/14/2025 Start: 10-14-2024 End: 10-14-2025 CBC panel - Blood by Automated count CBC Lab Routine Severe aortic stenosis Expected: 10/14/2024 (Approximate), Expires: 10/14/[address] [facility] Comment on above: Expected: 10/14/2024 (Approximate), Expi res: 10/14/2025 Start: 10-02-2024 End: 10-02-2025 Basic metabolic 1998 panel - Serum or Plasma Basic metabolic panel Lab Routine Renal insufficiency Expected: 10/02/2024 (Approximate), Expires: 10/02/2025 [facility] Work Phone: Comment on above: Expected: 10/02/2024 (Approximate), Expi res: 10/02/2025 Start: 09-26-2024 End: 09-26-2024 Patient encounter procedure 09/26/2024 1:45 PM EDT Appointment Radiology [address] [place], [place] [address] Recurrent UTI [N39.0]; History of kidney stones [Z87.442] Radiology Comment on above: Recurrent UTI [N39.0]; History of kidney stones [Z87.442] Start: 09-19-2024 End: 09-19-2025 Basic metabolic 1997 panel - Serum or Plasma Basic metabolic panel Lab Routine Aortic valve stenosis, etiology of cardiac valve disease unspecified Expected: 09/19/2024 (Approximate), Expires: 09/19/2025 [facility] Work Phone: Comment on above: Expected: 09/19/2024 (Approximate), Expi res: 09/19/2025 Start: 09-19-2024 End: 09-19-2024 Patient encounter procedure [facility] [address] Start: 09-18-2024 End: 09-03-2025 CBC W Auto Differential panel - Blood CBC auto differential Lab Routine Nonrheumatic aortic valve stenosis Expected: 09/18/2024 (Approximate), Expires: 09/03/2025 [facility] Work Phone: Comment on above: Expected: 09/18/2024 (Approximate), Expi res: 09/03/2025 Start: 09-10-2024 End: 09-03-2025 Basic metabolic 1997 panel - Serum or Plasma Basic metabolic panel Lab Routine Nonrheumatic aortic valve stenosis Expected: 09/10/2024 (Approximate), Expires: 09/03/2025 [employer] [facility] Comment on above: Expected: 09/10/2024 (Approximate), Expi res: 09/03/2025 Start: 09-03-2024 End: 09-03-2025 CT Chest WO and CT angiogram Coronary arteries W contrast IV CTA Angiogram TAVR Imaging Routine Nonrheumatic aortic valve stenosis Expected: 09/03/2024, Expires: 09/03/2025 [facility] Work Phone: Comment on above: Expected: 09/03/2024, Expires: Start: 08-30-2024 Creatinine measurement Serum Creatinine [facility] Start: 08-29-2024 End: 08-29-2024 Patient encounter procedure 08/29/2024 10:40 AM EDT Office Visit [facility] [place] [address] [place] [address] Amos Floyd MD [address] [place], [place] [address] 2 week follow-up [facility] [place] Comment on above: 2 week follow-up Start: 08-10-2024 Annual PCP Team Chronic Disease Visit Annual PCP Team Chronic Disease Visit [facility] Start: 08-09-2024 Patient discharge [facility] Start: 08-07-2024 Following clinical pathway protocol [facility] Start: 08-07-2024 Cardiac monitoring [facility] Start: 08-07-2024 Catheterization of vein [facility] Start: 08-07-2024 Notification of physician [facility] Start: 08-07-2024 Vital signs measurements [facility] Start: 08-07-2024 [facility] Start: 08-07-2024 CT Abdomen and Pelvis WO contrast [facility] Start: 08-07-2024 CT of abdomen and pelvis without contrast Abdomen/Pelvis without Cont [facility] Start: 08-07-2024 Measurement of occult blood in stool specimen using immunoassay [facility] Start: 08-07-2024 Admission procedure [facility] Start: 08-07-2024 Hospital admission, emergency, from emergency room, medical nature [facility] Start: 08-07-2024 [facility] Start: 08-07-2024 End: 08-07-2024 [facility] Start: 08-07-2024 Bacteria identified in Blood by Culture Blood Culture [facility] Start: 08-07-2024 Bacteria identified in Urine by Culture Urine Culture [facility] Start: 08-05-2024 Patient discharge [facility] Start: 07-24-2024 End: 07-24-2024 Patient encounter procedure 07/24/2024 11:00 AM EDT Office Visit [facility] [place] [address] [place] [address] Amos Floyd MD [address] [place] [address] 6 month follow up [facility] [place] Comment on above: 6 month follow up Start: 07-23-2024 Catheterization of left heart [facility] Start: 07-23-2024 Covid-19 Vaccine () Covid-19 Vaccine () [facility] Start: 07-23-2024 End: 07-23-2024 Evaluation of diagnostic study results [facility] Start: 07-10-2024 End: 07-10-2024 Nursing evaluation of patient and report 07/10/2024 9:15 AM EDT Nurse Visit [facility] [place] [address] [facility] [place] [address] Nurse, Ct [address] [place] [address] [facility] [place] Comment on above: [facility] Start: 06-30-2024 Creatinine measurement Serum Creatinine [facility] Start: 06-29-2024 Annual PCP Team Chronic Disease Visit Annual PCP Team Chronic Disease Visit [facility] Start: 06-12-2024 Complete blood count Hemoglobin/Hematocrit [facility] Start: 06-12-2024 Creatinine measurement Serum Creatinine [facility] Start: 06-11-2024 Complete blood count Hemoglobin/Hematocrit [facility] Start: 06-11-2024 Creatinine measurement Serum Creatinine [facility] Start: 06-07-2024 Complete blood count Hemoglobin/Hematocrit [facility] Start: 06-07-2024 Creatinine measurement Serum Creatinine [facility] Start: 05-30-2024 Annual PCP Team Chronic Disease Visit Annual PCP Team Chronic Disease Visit [facility] Start: 05-25-2024 Complete blood count Hemoglobin/Hematocrit [facility] Start: 05-25-2024 Creatinine measurement Serum Creatinine [facility] Start: 05-22-2024 Annual PCP Team Chronic Disease Visit Annual PCP Team Chronic Disease Visit [facility] Start: 05-22-2024 Creatinine measurement Serum Creatinine [facility] Start: 05-11-2024 Creatinine measurement Serum Creatinine [facility] Start: 05-11-2024 DIABETES SCREEN DIABETES SCREEN [facility] Start: 05-11-2024 Diabetes Screening Diabetes Screening [facility] Start: 03-22-2024 Annual PCP Team Chronic Disease Visit Annual PCP Team Chronic Disease Visit [facility] Start: 03-22-2024 BP Controlled (<130/80) BP Controlled (<130/80) [facility] Start: 02-21-2024 Advance Directive Discussion Advance Directive Discussion [facility] Start: 02-21-2024 Medicare Advantage Annual Wellness Visit Medicare [facility] Annual Wellness Visit [facility] Start: 02-01-2024 End: 02-01-2024 Patient encounter procedure 02/01/2024 10:40 AM EST Appointment [facility] [address] [facility] [place] [address] Nodule of lower lobe of right lung [R91.1] [facility] Comment on above: Nodule of lower lobe of right lung [R91. 1] Start: 01-24-2024 End: 04-24-2024 Basic metabolic 2000 panel - Serum or Plasma BASIC METABOLIC PANEL Lab Routine Stage 3b chronic kidney disease (HCC) Expected: 01/24/2024, Expires: 04/24/2024 [facility] Work Phone: Comment on above: Expected: 01/24/2024, Expires: Start: 01-24-2024 End: 04-24-2024 Lipid 1996 panel - Serum or Plasma LIPID PANEL BASIC Lab Routine Pure hypercholesterolemia Expected: 01/24/2024, Expires: 04/24/2024 [facility] Comment on above: Expected: 01/24/2024, Expires: Start: 01-23-2024 End: 01-23-2024 Patient encounter procedure 01/23/2024 9:40 AM EST Office Visit [facility] [address] [place] [address] Amos Floyd MD [address] [place] [address] Medicare Wellness [facility] Comment on above: Medicare Wellness Start: 01-20-2024 Annual PCP Team Chronic Disease Visit Annual PCP Team Chronic Disease Visit [facility] Start: 01-20-2024 BP Controlled (<130/80) BP Controlled (<130/80) [place] Start: 01-19-2024 Complete blood count Hemoglobin/Hematocrit [facility] Start: 01-19-2024 Creatinine measurement Serum Creatinine [facility] Start: 01-19-2024 Hemoglobin/Hematocrit Hemoglobin/Hematocrit [facility] Start: 01-19-2024 Hepatitis B surface antibody level LDL Cholesterol [facility] Start: 01-19-2024 Serum Creatinine Serum Creatinine [facility] Start: 01-11-2024 End: 01-11-2024 Nursing evaluation of patient and report 01/11/2024 2:00 PM EST Nurse Visit [facility] [address] [place], [place] [phone] Nurse, Ct [address] [place] [phone] prolia injection already approved. [facility] Comment on above: prolia injection already approved. Start: 12-29-2023 End: 12-29-2023 Patient encounter procedure 12/29/2023 9:30 AM EST Radiology [facility] [address] [place] [id number] Actionable Findings Phone Call [facility] Comment on above: Actionable Findings Phone Call Start: 10-27-2023 ANNUAL PCP TEAM CHRONIC DISEASE VISIT ANNUAL PCP TEAM CHRONIC DISEASE VISIT [facility] Start: 10-27-2023 BP CONTROLLED (<130/80) BP CONTROLLED (<130/80) [facility] Start: 10-22-2023 Covid-19 Vaccine ( season) Covid-19 Vaccine ( season) [facility] Start: 10-22-2023 Covid-19 Vaccine ( season) Covid-19 Vaccine ( season) [facility] Start: 10-22-2023 Influenza [facility] Start: 09-19-2023 End: 09-19-2023 ambulatory 09/19/2023 11:30 AM EDT OT/PT/Speech Visit [facility] [address] [place] [address] Kole El, PT [address] [place] [address] Physical deconditioning [R53.81]; Muscle weakness [M62.81]; Gait abnormality [R26.9] [facility] Comment on above: Physical deconditioning [R53.81]; Muscle weakness [M62.81]; Gait abnormality [R26.9] Start: 09-12-2023 End: 09-12-2023 ambulatory 09/12/2023 11:30 AM EDT OT/PT/Speech Visit [facility] [address] [place] [address] Kole El, PT [address] [place] [address] Physical deconditioning [R53.81]; Muscle weakness [M62.81]; Gait abnormality [R26.9] [facility] Comment on above: Physical deconditioning [R53.81]; Muscle weakness [M62.81]; Gait abnormality [R26.9] Start: 09-08-2023 End: 09-08-2023 ambulatory 09/08/2023 2:30 PM EDT OT/PT/Speech Visit [facility] [address] [place] [address] Kole El, PT [address] [place] [address] Physical deconditioning [R53.81]; Muscle weakness [M62.81]; Gait abnormality [R26.9] [facility] Comment on above: Physical deconditioning [R53.81]; Muscle weakness [M62.81]; Gait abnormality [R26.9] Start: 09-05-2023 End: 09-05-2023 ambulatory 09/05/2023 3:00 PM EDT OT/PT/Speech Visit [facility] [address] [facility] [address] Kole El, PT [address] [place] [address] Physical deconditioning [R53.81]; Muscle weakness [M62.81]; Gait abnormality [R26.9] [facility] Comment on above: Physical deconditioning [R53.81]; Muscle weakness [M62.81]; Gait abnormality [R26.9] Start: 08-30-2023 End: 08-30-2023 ambulatory 08/30/2023 3:00 PM EDT OT/PT/Speech Visit [facility] [address] [place] [place] [address] Kole El, PT [address] [place] [address] Physical deconditioning [R53.81]; Muscle weakness [M62.81]; Gait abnormality [R26.9] [facility] Comment on above: Physical deconditioning [R53.81]; Muscle weakness [M62.81]; Gait abnormality [R26.9] Start: 08-21-2023 End: 08-21-2023 ambulatory 08/21/2023 11:45 AM EDT OT/PT/Speech Visit [facility] [address] [facility] [place] [address] Margot Gisel, SALES AUDIT CLERK [address] [facility] [place] [address] Physical deconditioning [R53.81]; Muscle weakness [M62.81]; Gait abnormality [R26.9] [facility] Comment on above: Physical deconditioning [R53.81]; Muscle weakness [M62.81]; Gait abnormality [R26.9] Start: 08-15-2023 End: 08-15-2023 Patient encounter procedure 08/15/2023 3:30 PM EDT Office Visit [facility] [address] [place] [phone] Chastity Luke APRN.[employer]FER [employer] [address] [place] [address] Hospital Follow up, elsi. [facility] Comment on above: Hospital Follow up, elsi. Start: 08-11-2023 End: 08-11-2023 Patient encounter procedure 08/11/2023 10:40 AM EDT Office Visit [facility] [place] [address] [place], [place] [phone] Amos Floyd MD [address] [place] [address] 6 week follow-up [facility] [place] Comment on above: 6 week follow-up Start: 08-09-2023 End: 08-09-2023 ambulatory 08/09/2023 9:15 AM EDT OT/PT/Speech Visit [facility] [address] [place], [place] [phone] Kole El, PT [address] [place], [place] [id number] R26.9 (ICD-10-CM) - Gait abnormality [facility] [...] VISIT ANNUAL PCP TEAM CHRONIC DISEASE VISIT [facility] Start: 07-21-2023 BP CONTROLLED (<130/80) BP CONTROLLED (<130/80) [place] Start: 07-20-2023 End: 07-20-2023 Patient encounter procedure 07/20/2023 1:40 PM EDT Office Visit [facility] [place] [address] [facility] [place] [address] Amos Floyd MD [address] [place] [address] 6 month follow-up [facility] [place] Comment on above: 6 month follow-up Start: 07-19-2023 End: 07-19-2023 ambulatory 07/19/2023 9:00 AM EDT OT/PT/Speech Visit [facility] [address] [place] [place] [address] Kole El, PT [address] [facility] [place] [address] R26.9 (ICD-10-CM) - Gait abnormality [facility] Comment on above: R26.9 (ICD-10-CM) - Gait abnormality Start: 07-11-2023 End: 07-11-2023 ambulatory 07/11/2023 9:00 AM EDT OT/PT/Speech Visit [facility] [address] [place] [place] [address] Kole El, PT [address] [facility] [place], [place] [id number] R26.9 (ICD-10-CM) - Gait abnormality [facility] Comment on above: R26.9 (ICD-10-CM) - Gait abnormality Start: 07-05-2023 End: 07-05-2023 ambulatory 07/05/2023 9:45 AM EDT OT/PT/Speech Visit [facility] [address] [facility] [place] [address] Kole El, PT [address] [facility] [place] [address] R26.9 (ICD-10-CM) - Gait abnormality [place] [facility] Comment on above: R26.9 (ICD-10-CM) - Gait abnormality Start: 07-01-2023 End: 09-30-2023 25-hydroxyvitamin D3 [Mass/volume] in Serum or Plasma VITAMIN D 25 HYDROXY Lab Routine Hypercalcemia Age-related osteoporosis with current pathological fracture with routine healing Expected: 07/01/2023, Expires: 09/30/2023 [facility] Comment on above: Expected: 07/01/2023, Expires: Start: 07-01-2023 End: 09-30-2023 Calcium.ionized [Moles/volume] in Blood CALCIUM, IONIZED Lab Routine Hypercalcemia Age-related osteoporosis with current pathological fracture with routine healing Expected: 07/01/2023, Expires: 09/30/2023 [facility] Comment on above: Expected: 07/01/2023, Expires: Start: 07-01-2023 End: 09-30-2023 Comprehensive metabolic 2000 panel - Serum or Plasma COMPREHENSIVE METABOLIC PANEL Lab Routine Hypercalcemia Age-related osteoporosis with current pathological fracture with routine healing Expected: 07/01/2023, Expires: 09/30/2023 [facility] Work Phone: Comment on above: Expected: 07/01/2023, Expires: Start: 07-01-2023 End: 09-30-2023 Cortisol [Mass/volume] in Serum or Plasma CORTISOL, SERUM Lab Routine Hypokalemia Adrenal hypofunction (HCC) Expected: 07/01/2023, Expires: 09/30/2023 [facility] Comment on above: Expected: 07/01/2023, Expires: Start: 07-01-2023 End: 09-30-2023 [facility] SEND OUT TST 1 [facility] SEND OUT TST 1 Lab Routine Age-related osteoporosis with current pathological fracture with routine healing Expected: 07/01/2023, Expires: 09/30/2023 [facility] Comment on above: Expected: 07/01/2023, Expires: Start: 07-01-2023 End: 09-30-2023 Parathyrin.intact [Mass/volume] in Serum or Plasma PTH INTACT Lab Routine Hypercalcemia Age-related osteoporosis with current pathological fracture with routine healing Expected: 07/01/2023, Expires: 09/30/2023 [facility] Comment on above: Expected: 07/01/2023, Expires: Start: 07-01-2023 End: 09-30-2023 Phosphate [Mass/volume] in Serum or Plasma PHOSPHORUS INORGANIC Lab Routine Hypercalcemia Age-related osteoporosis with current pathological fracture with routine healing Expected: 07/01/2023, Expires: 09/30/2023 [facility] Comment on above: Expected: 07/01/2023, Expires: Start: 06-30-2023 End: 06-30-2023 Patient encounter procedure 06/30/2023 9:40 AM EDT Office Visit [facility] [place] [address] [place] [address] Amos Floyd MD [address] [place], [place] [address] 1 month follow up with [address] Amor [facility] [place] Comment on above: [address] Amor Start: 06-28-2023 End: 06-28-2023 ambulatory 06/28/2023 11:15 AM EDT OT/PT/Speech Visit [facility] [address] [place], [place] [id number] Kole El, PT [address] [place], [place] [id number] R26.9 (ICD-10-CM) - Gait abnormality [facility] Comment on above: R26.9 (ICD-10-CM) - Gait abnormality Start: 06-21-2023 End: 06-21-2023 ambulatory 06/21/2023 1:00 PM EDT OT/PT/Speech Visit [facility] [address] [place], [place] [id number] Kole El, PT [address] [place] [address] R26.9 (ICD-10-CM) - Gait abnormality [facility] Comment on above: R26.9 (ICD-10-CM) - Gait abnormality Start: 05-23-2023 [facility] Start: 05-23-2023 End: 08-22-2023 Bacteria identified in Urine by Culture [facility] Work Phone: Comment on above: Expected: 05/23/2023, Expires: Start: 05-20-2023 Covid-19 Vaccine () Covid-19 Vaccine () [facility] Start: 05-15-2023 [facility] Start: 02-20-2023 Advance Directive Discussion Advance Directive Discussion [facility] Start: 02-20-2023 Behavioral Health Screening Behavioral Health Screening [facility] Start: 02-20-2023 Depression Assessment Depression Assessment [facility] Start: 01-06-2023 Hepatitis B surface antibody level LDL CHOLESTEROL [facility] Start: 12-21-2022 End: 02-20-2023 CBC panel - Blood by Automated count CBC Lab Routine Primary hypertension Stage 3b chronic kidney disease (HCC) Expected: 12/21/2022 (Approximate), Expires: 02/20/2023 [facility] Work Phone: Comment on above: Expected: 12/21/2022 (Approximate), Expi res: 02/20/2023 Start: 12-21-2022 End: 02-20-2023 Comprehensive metabolic 2000 panel - Serum or Plasma COMP METABOLIC PANEL Lab Routine Pure hypercholesterolemia Primary hypertension Expected: 12/21/2022 (Approximate), Expires: 02/20/2023 [facility] Work Phone: Comment on above: Expected: 12/21/2022 (Approximate), Expi res: 02/20/2023 Start: 12-21-2022 End: 02-20-2023 Lipid 1996 panel - Serum or Plasma LIPID PANEL BASIC Lab Routine Pure hypercholesterolemia Expected: 12/21/2022 (Approximate), Expires: 02/20/2023 [facility] Work Phone: Comment on above: Expected: 12/21/2022 (Approximate), Expi res: 02/20/2023 Start: 12-20-2022 ANNUAL PCP TEAM CHRONIC DISEASE VISIT ANNUAL PCP TEAM CHRONIC DISEASE VISIT [facility] Start: 12-06-2022 ANNUAL PCP TEAM CHRONIC DISEASE VISIT ANNUAL PCP TEAM CHRONIC DISEASE VISIT [facility] Start: 10-21-2022 Covid-19 Vaccine () Covid-19 Vaccine () [facility] Start: 10-21-2022 Influenza vaccination INFLUENZA (#1) [facility] Start: 07-20-2022 ANNUAL PCP TEAM CHRONIC DISEASE VISIT ANNUAL PCP TEAM CHRONIC DISEASE VISIT [facility] Start: 07-20-2022 BP CONTROLLED (<130/80) BP CONTROLLED (<130/80) [facility] Start: 05-11-2022 SERUM CREATININE SERUM CREATININE [facility] Start: 04-19-2022 COVID-19 VACCINE (6 - Pfizer series) COVID-19 VACCINE (6 - Pfizer series) [facility] Start: 02-20-2022 ADVANCE DIRECTIVE DISCUSSION ADVANCE DIRECTIVE DISCUSSION [facility] Start: 02-20-2022 DEPRESSION ASSESSMENT DEPRESSION ASSESSMENT [facility] Start: 12-20-2021 End: 02-19-2022 Lipid 1996 panel - Serum or Plasma LIPID PANEL BASIC Lab Routine Pure hypercholesterolemia Expected: 12/20/2021, Expires: 02/19/2022 [facility] Work Phone: Comment on above: Expected: 12/20/2021, Expires: Start: 11-20-2021 Prothrombin time [facility] Work Phone: Start: 11-19-2021 Prothrombin time [facility] Work Phone: Start: 11-18-2021 Partial thromboplastin time, activated [facility] Work Phone: Start: 11-18-2021 Patient discharge [facility] Work Phone: Start: 11-18-2021 Care planning and problem solving actions [facility] Work Phone: Start: 09-29-2022 Prothrombin time [facility] Work Phone: Start: 11-17-2021 End: 11-17-2021 Following clinical pathway protocol [facility] Work Phone: Start: 11-17-2021 Referral to service [facility] Work Phone: Start: 11-17-2021 Assessment of risk of venous thromboembolism [facility] Work Phone: Start: 11-17-2021 Consultation [facility] Work Phone: Start: 11-17-2021 Continuous pulse oximetry [facility] Work Phone: Start: 11-17-2021 Insertion of catheter into peripheral vein [facility] Work Phone: Start: 11-17-2021 Measuring intake and output [facility] Work Phone: Start: 11-17-2021 Providing care according to standard [facility] Work Phone: Start: 11-17-2021 Vital signs measurements [facility] Work Phone: Start: 11-17-2021 End: 11-17-2021 [facility] Work Phone: Start: 11-17-2021 Verification routine [facility] Work Phone: Start: 11-17-2021 Admission procedure [facility] Work Phone: Start: 11-17-2021 Blood chemistry [facility] Work Phone: Start: 11-17-2021 Patient referral to dietitian [facility] Work Phone: Start: 11-16-2021 [facility] Work Phone: Start: 11-16-2021 End: 11-16-2021 Blood culture [facility] Work Phone: Start: 10-21-2021 Influenza vaccination INFLUENZA (#1) [facility] Start: 10-13-2021 End: 10-27-2021 Influenza virus A and B RNA and SARS-CoV-2 (COVID-19) N gene panel - Respiratory specimen by NAN with probe detection COVID WITH FLUA+B, ROUTINE Microbiology Routine Suspected COVID-19 virus infection Expected: 10/13/2021, Expires: 10/27/2021 [facility] Work Phone: Comment on above: Expected: 10/13/2021, Expires: Start: 10-08-2021 Screening for osteoporosis Bone Density Screening [facility] Start: 09-14-2021 COVID-19 VACCINE (5 - Booster for Pfizer series) COVID-19 VACCINE (5 - Booster for Pfizer series) [facility] Start: 07-28-2021 Adult depression screening assessment DEPRESSION SCREENING [facility] Start: 06-09-2021 Hepatitis B surface antibody level LDL CHOLESTEROL [facility] Start: 05-11-2021 HEMOGLOBIN/HEMATOCRIT HEMOGLOBIN/HEMATOCRIT [facility] Start: 02-20-2021 ADVANCE DIRECTIVE DISCUSSION [facility] Start: 02-20-2021 DEPRESSION ASSESSMENT DEPRESSION ASSESSMENT [facility] Start: 08-30-2019 BP CONTROLLED (<130/80) BP CONTROLLED (<130/80) [facility] Start: 03-07-2019 Screening for osteoporosis Bone Density Scan [facility] Start: 2003 RSV Vaccine (1 - 1-dose 60+ series) RSV Vaccine (1 - 1-dose 60+ series) [facility] Start: 1961 Anxiety Screening Anxiety Screening [facility] Start: 1961 Depression Screening Depression Screening [facility] Start: 1961 Diabetes: Urine Albumin-Creatinine Ratio for Kidney Health Diabetes: Urine Albumin-Creatinine Ratio for Kidney Health [facility] Start: 1955 Depression Screening Depression Screening [facility] Start: 1943 Creatinine measurement Creatinine Level [facility] Start: 1943 Echocardiography Echocardiogram [facility] Start: 1943 Lipid panel Lipid Panel [facility] Start: 1943 Medicare Annual Wellness Visit Medicare Annual Wellness Visit (AWV) [facility] Start: 1943 Potassium measurement Potassium Level [facility] Start: 1943 Screening for osteoporosis Bone Density Scan [facility] Anion gap measurement [facility] Work Phone: Bacteria identified in Blood by Culture Blood Culture [facility] Work Phone: Bacteria identified in Urine by Culture BACTERIAL CULTURE, URINE Microbiology Routine Acute cystitis without hematuria 08/14/2024 12:22 PM EDT [facility] Work Phone: Bacteria identified in Urine by Culture BACTERIAL CULTURE, URINE Microbiology Routine History of UTI 08/29/2024 11:32 AM EDT [facility] Work Phone: Basic metabolic 2008 panel with ionized calcium - Serum or Plasma [facility] Bilirubin measuremen t, urine [facility] Work Phone: Bilirubin measuremen t, urine [facility] Blood culture [facility] Work Phone: BUN/Creatinine ratio [facility] Work Phone: Calcium [Mass/volume ] in Serum or Plasma [facility] Work Phone: Carbon dioxide, tota l [Moles/volume] in Serum or Plasma [facility] Work Phone: CBC W Auto Different ial panel - Blood [facility] Chloride [Moles/volu me] in Serum or Plasma [facility] Work Phone: Creatinine [Moles/volume] in Serum or Plasma [facility] Work Phone: End: 02-13-2025 CT Chest WO contrast CT CHEST WO IVCON Radiology Routine Nodule of lower lobe of right lung needing follor up CT 1 Occurrences starting 01/15/2024 until 02/13/2025 [facility] Work Phone: Comment on above: 1 Occurrences starting 01/15/2024 until 02/13/2025 CT Chest WO contrast CT CHEST WO IVCON Radiology Routine Nodule of lower lobe of right lung needing follor up CT 02/01/2024 11:20 AM EST [facility] Work Phone: End: 12-29-2024 DXA Skeletal system.axial Views for bone density DXA-AXIAL SKELETON Radiology Routine Age-related osteoporosis with current pathological fracture with routine healing 1 Occurrences starting 11/30/2023 until 12/29/2024 [facility] Work Phone: Comment on above: 1 Occurrences starting 11/30/2023 until 12/29/2024 ECG 12 lead - CLINIC PERFORMED ECG 12 lead - CLINIC PERFORMED CV ECG Routine Aortic valve stenosis, etiology of cardiac valve disease unspecified 09/19/2024 3:16 PM [facility] Work Phone: ECG COMPLETE ECG COMPLETE ECG 10/29/2024 11:31 AM EDT [facility] Electrocardiogram, 12-lead PRN ACS symptoms Electrocardiogram, 12-lead PRN ACS symptoms ECG Routine As needed until discontinued starting 05/24/2023 [facility] Work Phone: Comment on above: As needed until discontinued starting Glucose [Mass/volume ] in Serum or Plasma [facility] Work Phone: Hematocrit [Volume Fraction] of Blood [facility] Work Phone: Hemoglobin [Mass/vol ume] in Blood [facility] Work Phone: Hemoglobin [Presence ] in Urine [facility] Work Phone: Hemoglobin [Presence ] in Urine [facility] INR in Blood by Coagulation assay [facility] Work Phone: Lactic acid measurement [facility] Leukocytes [#/volume ] in Blood [facility] Work Phone: Mean corpuscular hemoglobin concentration determination [facility] Work Phone: Mean corpuscular hemoglobin determination [facility] Work Phone: Measurement of keton es in urine using dipstick [facility] Work Phone: Measurement of keton es in urine using dipstick [facility] Measurement of renal function [facility] Work Phone: Microscopic urinalysis [facility] Work Phone: Microscopic urinalysis [facility] Neutrophil count [facility] Work Phone: Neutrophil percent differential count [facility] Work Phone: Organism count, microscopic method [facility] End: 05-24-2023 Parathyrin related protein [Moles/volume] in Serum or Plasma [facility] Work Phone: Comment on above: Once (Lab) for 1 Occurrences starting until 05/24/2023 End: 05-25-2023 Parathyrin related protein [Moles/volume] in Serum or Plasma PTH-Related Peptide Lab Routine Once (Lab) for 1 Occurrences starting 05/25/2023 until 05/25/2023 [facility] Work Phone: Comment on above: Once (Lab) for 1 Occurrences starting until 05/25/2023 Partial thromboplast in time, activated [facility] Work Phone: Partial thromboplast in time, activated [facility] Patient Education Hypercalcemia Dc [facility] Work Phone: Patient referral [facility] Work Phone: pH of Urine [facility] Work Phone: pH of Urine [facility] Platelets [#/volume] in Blood [facility] Work Phone: Potassium [Moles/vol ume] in Serum or Plasma [facility] Work Phone: Prothrombin time [facility] Work Phone: Prothrombin time [facility] Red blood cell count [facility] Work Phone: Red cell distributio n width determination [facility] Work Phone: End: 01-05-2023 Screening mammography bi 2-view breast inc cad TAE SCREENING Radiology Routine Encounter for screening mammogram for malignant neoplasm of breast 1 Occurrences starting 12/06/2021 until 01/05/2023 [facility] Work Phone: Comment on above: 1 Occurrences starting 12/06/2021 until 01/05/2023 Sodium [Moles/volume ] in Serum or Plasma [facility] Work Phone: Specific gravity of Urine [facility] Work Phone: Specific gravity of Urine [facility] TRANSCATHETER AORTIC VALVE REPLACEMENT (TAVR) TRANSCATHETER AORTIC VALVE REPLACEMENT (TAVR) Severe aortic stenosis [facility] TRANSCATHETER AORTIC VALVE REPLACEMENT (TAVR) - OR TRANSCATHETER AORTIC VALVE REPLACEMENT (TAVR) - OR Severe aortic stenosis [facility] Troponin T.cardiac [Mass/volume] in Serum or Plasma by High sensitivity method [facility] Urea nitrogen [Mass/volume] in Serum or Plasma [facility] Work Phone: End: 05-24-2023 Urinalysis complete panel - Urine Urinalysis with Reflex Microscopic Lab Routine Once (Lab) for 1 Occurrences starting 05/24/2023 until 05/24/2023 [facility] Work Phone: Comment on above: Once (Lab) for 1 Occurrences starting until 05/24/2023 Urinalysis, blood, qualitative [facility] Work Phone: Urine culture [facility] Urine dipstick for glucose [facility] Work Phone: Urine dipstick for glucose [facility] Urine dipstick for leukocyte esterase [facility] Work Phone: Urine dipstick for leukocyte esterase [facility] Urine dipstick for nitrite [facility] Work Phone: Urine dipstick for nitrite [facility] Urine dipstick for protein [facility] Work Phone: Urine dipstick for protein [facility] Urine examination [facility] Work Phone: Urine examination [facility] Urine microscopy: epithelial cells [facility] Work Phone: Urine microscopy: epithelial cells [facility] Urine microscopy: re d cells [facility] Urine Microscopy: wh ite cells [facility] Work Phone: Urobilinogen [Presen ce] in Urine [facility] Work Phone: Urobilinogen [Presen ce] in Urine [facility] US Heart [facility] End: 10-19-2025 US Kidney - bilateral and Urinary bladder US KIDNEY/BLADDER Radiology Routine Recurrent UTI History of kidney stones 1 Occurrences starting 09/19/2024 until 10/19/2025 [facility] Work Phone: Comment on above: 1 Occurrences starting 09/19/2024 until 10/19/2025 Vitamin D, 25-hydrox y measurement [facility] Work Phone: White blood cell count [facility] End: 01-27-2025 XR Chest PA and Lateral XR CHEST 2V FRONTAL/LAT Radiology STAT Abnormal finding of diagnostic imaging 1 Occurrences starting 12/29/2023 until 01/27/2025 [facility] Work Phone: Comment on above: 1 Occurrences starting 12/29/2023 until 01/27/2025 XR Chest PA and Lateral [facility] End: 01-18-2024 XR FOOT GENERAL 3V AP/LAT/OBL RIGHT XR FOOT GENERAL 3V AP/LAT/OBL RIGHT Radiology Routine Closed displaced fracture of fifth metatarsal bone of right foot, initial encounter 1 Occurrences starting 12/19/2022 until 01/18/2024 [facility] Work Phone: Comment on above: 1 Occurrences starting 12/19/2022 until 01/18/2024 XR FOOT GENERAL 3V AP/LAT/OBL RIGHT XR FOOT GENERAL 3V AP/LAT/OBL RIGHT Radiology Routine Closed displaced fracture of fifth metatarsal bone of right foot, initial encounter 01/18/2023 10:52 AM EST [facility] Work Phone: End: 11-25-2023 XR HIP BILATERAL 5V PEL/AP/LAT EACH HIP XR HIP BILATERAL 5V PEL/AP/LAT EACH HIP Radiology Routine Hip pain, unspecified laterality 1 Occurrences starting 10/26/2022 until 11/25/2023 [facility] Work Phone: Comment on above: 1 Occurrences starting 10/26/2022 until 11/25/2023 XR HIP BILATERAL 5V PEL/AP/LAT EACH HIP XR HIP BILATERAL 5V PEL/AP/LAT EACH HIP Radiology Routine Hip pain, unspecified laterality 10/26/2022 2:59 PM EDT [facility] Work Phone: [facility] Immunizations Immunization Date Immunization Notes Care Provider [facility] 10-29-2024 influenza, high dose seasonal, preservative-free Amos Floyd MD Work Phone: [facility] 07-24-2024 COVID-19 vaccine, ag e 12+ yr (PFIZER-BIONTECH COMIRNATY) Amos Floyd MD Work Phone: [facility] 01-23-2024 COVID-19 vaccine, ag e 12+ yr (PFIZER-BIONTECH COMIRNATY) Amos Floyd MD Work Phone: [facility] 01-23-2024 influenza, high dose seasonal, preservative-free Amos Floyd MD Work Phone: [facility] 01-23-2024 influenza virus vacc ine, unspecified formulation Amos Floyd MD Work Phone: [facility] 01-19-2023 COVID-19 vaccine, ag e 12+ yr, season (PFIZER-BIONTECH) Amos Floyd MD Work Phone: [facility] Work Phone: 10-26-2022 influenza (HD-IIV4) vaccine, age 65+ yr, high dose, quadrivalent, PF (FLUZONE HIGH-DOSE) Amos Floyd MD Work Phone: [facility] 10-26-2022 influenza virus vacc ine, unspecified formulation Gisel Frost PTA Work Phone: [facility] 12-20-2021 COVID-19 booster vaccine, age 12+ yr, bivalent (PFIZER-BIONTECH) Rocio Older [employer]OKERAGE CLERK[employer] Work Phone: [facility] 11-18-2021 influenza, injectabl e, quadrivalent, contains preservative Elisa Mcdonough MD Work Phone: [facility] Work Phone: 11-17-2021 influenza, injectabl e, quadrivalent, preservative free Dr. Amos Floyd Work Phone: [facility] 11-17-2021 influenza, seasonal, injectable Dr. Amos Floyd Work Phone: [facility] 07-20-2021 COVID-19 vaccine, ag e 12+ yr (PFIZER-BIONTECH - LOPEZ TOP) Amos Floyd MD Work Phone: [facility] Work Phone: 12-26-2020 SARS-CoV-2, Unspecified Tino Mcdonough MD Work Phone: [facility] Work Phone: 12-09-2020 influenza, injectabl e, quadrivalent, contains preservative Elisa Mcdonough MD Work Phone: [facility] Work Phone: 11-20-2020 influenza, high-dose , quadrivalent vaccine (FLUZONE HIGH DOSE QUADRIVALENT) Amos Floyd MD Work Phone: [facility] Work Phone: 06-19-2020 COVID-19 vaccine, ag e 12+ yr (PFIZER-BIONTECH - PURPLE TOP) Amos Floyd MD Work Phone: [facility] Work Phone: 05-26-2020 COVID-19 vaccine, ag e 12+ yr (PFIZER-BIONTECH - PURPLE TOP) Amos Floyd MD Work Phone: [facility] Work Phone: 02-17-2020 zoster vaccine recombinant Amos Floyd MD Work Phone: [facility] Work Phone: 11-17-2019 influenza, high dose seasonal, preservative-free Amos Floyd MD Work Phone: [facility] 11-17-2019 influenza, high-dose , quadrivalent vaccine (FLUZONE HIGH DOSE QUADRIVALENT) Amos Floyd MD Work Phone: [facility] Work Phone: 11-17-2019 zoster vaccine recombinant Amos Floyd MD Work Phone: [facility] Work Phone: 11-13-2019 influenza, injectabl e, quadrivalent, contains preservative Elisa Mcdonough MD Work Phone: [facility] Work Phone: 11-11-2019 tetanus toxoid, redu rk diphtheria toxoid, and acellular pertussis vaccine, adsorbed Dr. Amos Floyd Work Phone: [facility] 11-08-[address] Amos Floyd Work Phone: [facility] 11-08-2019 influenza, seasonal, injectable, preservative free Elisa Mcdonough MD Work Phone: [facility] Work Phone: 12-10-2018 influenza, high dose seasonal, preservative-free Amos Floyd MD Work Phone: [facility] Work Phone: 10-21-2018 influenza, injectabl e, quadrivalent, contains preservative Elisa Mcdonough MD Work Phone: [facility] Work Phone: 12-21-2017 pneumococcal vaccine , unspecified formulation Amos Floyd MD Work Phone: [facility] Work Phone: 11-02-2017 influenza, high dose seasonal, preservative-free Amos Floyd MD Work Phone: [facility] Work Phone: 10-27-2015 influenza, seasonal, injectable Amos Floyd MD Work Phone: [facility] 08-19-2015 tetanus and diphther ia toxoids, adsorbed, preservative free, for adult use (5 Lf of tetanus toxoid and 2 Lf of diphtheria toxoid) Amos Floyd MD Work Phone: [facility] 12-03-2014 influenza, high dose seasonal, preservative-free Amos Floyd MD Work Phone: [facility] 10-13-2014 influenza, seasonal, injectable Amos Floyd MD Work Phone: [facility] Work Phone: 10-13-2014 zoster vaccine, live Amos Floyd MD Work Phone: [facility] Work Phone: 03-20-2014 pneumococcal conjuga te vaccine, 13 valent Amos Floyd MD Work Phone: [facility] 11-20-2013 influenza, seasonal, injectable Amos Floyd MD Work Phone: [facility] 11-24-2012 influenza virus vacc ine, unspecified formulation Amos Floyd MD Work Phone: [facility] Work Phone: 11-13-[address] Amos Floyd Work Phone: [facility] 11-13-2012 influenza, seasonal, injectable, preservative free Amos Floyd MD Work Phone: [facility] Work Phone: 11-13-2012 pneumococcal Conjuga te, unspecified formulation Rocio Alex BROKERAGE CLERK.TELLY Work Phone: [facility] 11-13-2012 pneumococcal polysaccharide vaccine, 23 valent Amos Floyd MD Work Phone: [facility] Work Phone: 11-13-[address] Oniel Floyd Work Phone: [facility] Work Phone: 11-13-2012 pneumococcal vaccine , unspecified formulation Dr. Amos Floyd Work Phone: [facility] 01-06-2012 influenza virus vacc ine, unspecified formulation Amos Floyd MD Work Phone: [facility] Work Phone: 05-03-2009 tuberculin skin test ; purified protein derivative solution, intradermal Xr [place] Work Phone: [facility] 04-16-2009 novel influenza-H1N1 -09, all formulations Amos Floyd MD Work Phone: [facility] 07-18-2008 pneumococcal polysaccharide vaccine, 23 valent Amos Floyd MD Work Phone: [facility] Work Phone: 01-12-2007 influenza virus vacc ine, unspecified formulation Amos Floyd MD Work Phone: [facility] Work Phone: 12-14-2005 influenza virus vacc ine, unspecified formulation Amos Floyd MD Work Phone: [facility] Work Phone: 04-26-2005 tetanus and diphther ia toxoids, adsorbed, preservative free, for adult use (2 Lf of tetanus toxoid and 2 Lf of diphtheria toxoid) Amos Floyd MD Work Phone: [facility] Payers Date Payer Category Payer Medicare O [employer] MEDICARE [id number] 2023 Self-pay [id number] 2023 Medicare (Managed Care) 1.2. [id number] 2023 Private Health Insurance [id number] 2017 Medicare HUMANA MEDICARE HUMANA MEDICARE PPO [id number] 2017-Present [phone] [facility] [id number] [place] [id number] PPO [id number] 2017 Medicare [id number] 2017 Private Health Insurance [id number] 1945 Unknown [id number] 2.16840.1.759787.3.579.2. 594 1945 Unknown [id number] 2.16.840.1.304347.3.579.2. 1246 Unknown [id number] 2.840.1.750923.3.579.2. 462 Unknown [id number] 2.16.840.1.604234.3.579.2. 462 Unknown [id number] 2.16.840.1.946617.3.579.2. 462 Unknown [id number] 2.16.840.1.174948.3.579.2. 462 Unknown [id number] 2.16.840.1.730210.3.579.2. 462 Unknown [id number] 2.16.840.1.313154.3.579.2. 462 Unknown [id number] 2.16.840.1.401220.3.579.2. 462 Unknown [id number] 2.16.840.1.906079.3.579.2. 462 Unknown [id number] 2.16.840.1.816403.3.579.2. 462 Unknown [id number] 2.16.840.1.826531.3.579.2. 462 Unknown [id number] 2.16.840.1.140949.3.579.2. 462 Unknown [id number] 2.16.840.1.554031.3.579.2. 462 Unknown [id number] 2.16.840.1.603470.3.579.2. 462 Unknown [id number] 2.16.840.1.231681.3.579.2. 462 Unknown [id number] 2.16.840.1.346135.3.579.2. 462 Unknown [id number] 2.16.840.1.787114.3.579.2. 462 Unknown [id number] 2.16.840.1.791554.3.579.2. 462 Unknown [id number] 2.16.840.1.251203.3.579.2. 462 Unknown [id number] 2.16.840.1.930415.3.579.2. 462 Unknown [id number] 2.16.840.1.789235.3.579.2. 462 Unknown [id number] 2.16.840.1.029349.3.579.2. 462 Unknown [id number] 2.16.840.1.905911.3.579.2. 462 Unknown [id number] 2.16.840.1.308199.3.579.2. 462 Unknown [id number] 2.16.840.1.277644.3.579.2. 462 Unknown [id number] 2.16.840.1.342231.3.579.2. 462 Unknown [id number] 2.16.840.1.960395.3.579.2. 462 Unknown [id number] 2.16.840.1.874746.3.579.2. 462 Unknown [id number] 2.16.840.1.795333.3.579.2. 462 Unknown [id number] 2.16.840.1.269970.3.579.2. 462 Social History Date Type Detail Facility Start: 2021 End: 05-23-2023 Tobacco smoking status DCIS Unknown if ever smoked [facility] Start: 06-20-[address] [facility] Start: 06-20-[address] [facility] Start: 06-20-[address] [facility] Start: 1945 Sex Assigned At Female [facility] Start: 10-13-2021 End: 09-02-2024 Tobacco smoking status NHIS Never smoked tobacco [facility] Work Phone: Start: 07-20-2021 End: 09-19-2024 Alcohol intake Current non-drinker of alcohol (finding) [facility] Start: 1945 Sex Assigned At Not on file [facility] Start: 07-10-2021 End: 05-24-2023 Exposure to SARS-CoV-2 (event) Not sure [facility] Work Phone: Start: 10-13-2021 End: 09-02-2024 Tobacco use and exposure Smokeless tobacco non-user [facility] Start: 07-20-2022 End: 11-28-2024 History of Social function [facility] Work Phone: Start: 07-20-2022 End: 11-28-2024 Tobacco use panel [facility] Work Phone: Start: 01-22-2012 Adult Depression Screening Assessment 0 [facility] Work Phone: How often to you hav e a drink containing alcohol? Never [facility] Work Phone: How hard is it for y ou to pay for the very basics like food, housing, medical care, and heating Not very hard [facility] Work Phone: In the past 12 month s, was there a time when you were not able to pay the mortgage or rent on time? No [facility] Work Phone: (I/We) worried wheth er (my/our) food would run out before (I/we) got money to buy more. Never true [facility] Start: 09-20-2021 End: 05-20-2024 Sex Female (finding) [facility] Start: 09-03-2024 End: 11-28-2024 Alcoholic beverage intake Lifetime non-drinker (finding) [facility] Medical Equipment Procedure Code Equipment Code Equipment Origin al Text Equipment Identifier Dates Valve Aor Phong 3 Ultra 23mm - [id number] - [id number] Start: 10-23-2024 Device Closure Perclose 6fr - [id number] Start: 10-23-2024 Device Closure Perclose 6fr - [id number] Start: 10-23-2024 Device Closure Vascade 6/7fr - [id number] Start: 10-23-2024 Comment on above: Description: Placed in right IJ Goals Date Patient Goal Desired Activity /State Personal health goal Functional Status Date Assessment Result Facility 11-28-2024 Patient Health [facility] ionnaire 2 item (PHQ-2) [Reported] [facility] 08-09-2024 Functional status Chair [facility] Work Phone: 06-13-2023 Are you deaf, or do you have serious difficulty hearing No 06/13/2023 12:43 PM Elizabeth Rolle RN No [facility] 06-13-2023 Are you blind, or do you have serious difficulty seeing, even when wearing glasses No 06/13/2023 12:43 PM Elizabeth Rolle RN No [facility] 06-13-2023 Do you have serious difficulty walking or climbing stairs No 06/13/2023 12:43 PM Elizabeth Rolle RN No [facility] 06-13-2023 Do you have difficul ty dressing or bathing No 06/13/2023 12:43 PM Elizabeth Rolle RN No [facility] 06-13-2023 Because of a physica l, mental, or emotional condition, do you have difficulty doing errands alone such as visiting a physician's office or shopping No 06/13/2023 12:43 PM Elizabeth Rolle RN No [facility] 11-18-2021 Functional status Ambulates [facility] Work Phone: 11-17-2021 Functional status Bedrest [facility] Work Phone: Mental Status Date Assessment Result Facility 08-09-2024 Cognitive function Voice/Name [facility] Work Phone: 08-07-2024 Cognitive function Level Of Cons ciousness Awake;Alert;Appropriate;Fol lows Commands [facility] Work Phone: 06-13-2023 Because of a physica l, mental, or emotional condition, do you have serious difficulty concentrating, remembering, or making decisions No 06/13/2023 12:43 PM Elizabeth Rolle RN No [facility] 05-31-2023 Cognitive function Voice/Name [facility] Work Phone: 05-23-2023 Cognitive function Level Of Cons ciousness Awake;Alert;Appropriate [facility] Work Phone: 05-15-2023 Cognitive function Level Of Cons ciousness Awake;Alert;Appropriate;Fol lows Commands [facility] Work Phone: 11-25-2022 Cognitive function Awake;Alert;A ppropriate;Fol lows Commands [facility] Work Phone: 05-27-2022 Cognitive function Awake;Alert;A ppropriate;Fol lows Commands [facility] Work Phone: 11-26-2021 Cognitive function Awake;Alert;A ppropriate;Fol lows Commands [facility] Work Phone: 11-18-2021 Cognitive function Voice/Name;To uch/Shaking;Li ght Pain;Deep Pain [facility] Work Phone: 11-16-2021 Cognitive function Level Of Cons ciousness Awake;Alert;Appropriate;Fol lows Commands [facility] Work Phone: 05-27-2021 Cognitive function Level Of Cons ciousness Awake;Alert [facility] Work Phone: Clinical Notes 04-20-2009 to 11-28-2024 Basim Joel, [facility] - 11/28/2024 11:00 AM EDDayami Joel, [facility] - 11/28/2024 11:00 AM EDDayami Joel, [facility] - 10/31/2024 11:00 AM EDTPatient Instructions Note Date & Type Note Facility 11-28-2024 History of Presen t illness Narrative Images from the original note were not included. [facility] [address] [address] Dept: [phone] Dept Visit type: Established : 1945 Reason for Visit: Cardiac Valve Problem Assessment and Plan 1. Chronic systolic heart failure (HCC) Class III. Category C Continue metoprolol. Resume Lisinopril 5 mg daily. I will have her see the heart failure team given her severe LV dysfunction, Lares's disease, and CKD. 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 Na/K have remained [...] mm Hg). She had an admission at [facility] in July for UTI after heart [...] specialty: Independent interpretation of tests: Basim Joel, BROKERAGE CLERK - ROOFER VIN[employer] [1] Allergies Allergen Reactions Amlodipine Swelling Ciprofloxacin [...] Rfl: [3] Past Medical History: Diagnosis Date Lares anemia 2010 [4] Past Surgical History: Procedure Laterality Date BLADDER REPAIR CARDIAC CATHETERIZATION N/A 10/23/2024 Performed by Memo Canas MD at [facility] OR CYSTECTOMY (HISTORICAL) LAPAROSCOPIC NEPHRECTOMY (HISTORICAL) Left TOTAL ABDOMINAL HYSTERECTOMY [5] Family History Problem Relation Name Age of Onset Heart attack Mother Stroke Father documented in this encounter [facility] 11-28-2024 History of Presen t illness Narrative Images from the original note were not included. [facility] - [address] [address] Dept: [phone] Dept Visit type: Established : 1945 Reason for Visit: Cardiac Valve Problem Assessment and Plan 1. Chronic systolic heart failure (HCC) Class III. Stage C Continue metoprolol. Resume Lisinopril 5 mg daily. I will have her see the heart failure team given her severe LV dysfunction, Lares's disease, and CKD. 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 Na/K have remained stable [address] Adorno- est heart failure Subjective Ms Peralta is an 79 yr old female known to Dr. 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 She had an admission at [facility] in July for UTI after heart [...] specialty: Independent interpretation of tests: Basim Joel, BROKERAGE CLERK - [employer] [1] Allergies Allergen Reactions Amlodipine Swelling Ciprofloxacin [...] 10/23/2024 Performed by Memo Canas MD at [facility] OR CYSTECTOMY (HISTORICAL) LAPAROSCOPIC NEPHRECTOMY (HISTORICAL) Left TOTAL ABDOMINAL HYSTERECTOMY [5] Family History Problem Relation Name Age of Onset Heart attack Mother Stroke Father documented in this encounter [facility] 11-14-2024 Progress note [facility] 10-31-2024 History of Present illness Narrative Images from the original note were not included. [facility] - [address] [address] Dept: [phone] Dept Visit type: Established : 1945 Reason [...] a PMH for CAD, HPL, DVT, PE, Lares's disease, CKD s/p left nephrectomy (donated) and [...] Rfl: [3] Past Medical History: Diagnosis Date Lares anemia 2010 [4] Past Surgical History: Procedure Laterality Date BLADDER REPAIR CARDIAC CATHETERIZATION N/A 10/23/2024 Performed by Memo Canas MD at [facility] OR CYSTECTOMY (HISTORICAL) LAPAROSCOPIC NEPHRECTOMY (HISTORICAL) Left TOTAL ABDOMINAL HYSTERECTOMY [5] Family History Problem Relation Name Age of Onset Heart attack Mother Stroke Father documented in this encounter [facility] 10-31-2024 Instructions LIDIA Patel CNP - 10/31/2024 11:00 AM EDT If weight gain greater than 3lbs/24 hours or > 5lbs in one week. Take 1/2 Lasix (furosemide) documented in this encounter [facility] 10-31-2024 Miscellaneous Notes Addended by: JAQUELIN MONCADA on: 10/31/2024 02:58 PM Modules accepted: Orders documented in this encounter [facility] 10-31-2024 Note Addended by: JAQUELIN CARBONE on: 10/31/2024 02:58 PM Modules accepted: Orders [facility] 10-31-2024 Note Addended by: JAQUELIN CARBONE on: 10/31/2024 02:58 PM Modules accepted: Orders [facility] 10-29-2024 Note HNO ID: [id number] Author: AMOS FLOYD MD Service: ? Author Type: Physician Type: Progress Notes Filed: 10/29/2024 12:03 Note Text: Subjective Linda Peralta is a 79 year old female here with her daughter. She had TAVR at [facility] last week. She had some fluid retention prior to surgery and was prescribed furosemide 40 mg daily for 3 days with weight loss of around 20 pounds. She started regaining weight and was again advised 2 days of furosemide last week. Echo last week showed EF dropped to 20%. They have another echocardiogram scheduled. She has a follow up with [facility] this , and the [facility] later this month. ACTIVE PROBLEM [...] I35.0 - See #1. Amos Floyd MD [facility] 10-29-2024 History of Present illness Narrative Subjective Linda Peralta is a 79 year old female here with her daughter. She had TAVR at [facility] last week. She had some fluid retention prior to surgery and was prescribed furosemide 40 mg daily for 3 days with weight loss of around 20 pounds. She started regaining weight and was again advised 2 days of furosemide last week. Echo last week showed EF dropped to 20%. They have another echocardiogram scheduled. She has a follow up with [facility] this , and the [facility] later this month. ACTIVE PROBLEM [...] Amos Floyd MD documented in this encounter [facility] 10-28-2024 Telephone encounter Note Per TVT registry guidelines, 5 meter walk test completed in office on 09/03/24. 7 seconds, 7 seconds, [address] [facility] 10-28-2024 Miscellaneous Notes Per TVT registry guidelines, 5 meter walk test completed in office on 09/03/24. 7 seconds, 7 seconds, 7 seconds Letter refaxed to [phone] along w/ Megcornelios chart note. Confirmation 10/16/24 at 3:07p Confirmed 10/22/2024 at 3:59p Spoke with Dr. Gregory's office to follow-up on IV hydrocortisone dosing. Did not receive fax from last week, confirmed number of [phone]. Requested patient will need to have telephone visit at [address] Gregory to review instructions. Requested to have OV note and letter re-faxed to the above number. Will provide valve clinic fax number so Dr. Gregory's office can fax recommendations back Approved per fax. Scanned in under Media. Approval [id number] Sched on all 3 calendars and requested on [employer]board. Pre TAVR phone call placed. Reviewed, procedure, instructions and meds. Pt verbalizes understanding. Pt knows to call [phone] with any concerns. 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 BROKERAGE CLERK notified to complete prep for proc Diagnosis: Aortic Stenosis Procedure being done: TAVR Date/time of procedure: 10/23/24 at 7:30 am Surgeon: Dr. Canas 2nd surgeon: Dr. Self Admission type: To be admitted Anesthesia: MAC Completed: BMP, CBC, CTA, H&P Date completed: 10/17/24 Additional orders Type and screen AM of proc Labs scanned under Media Requested lab from [place]. She is faxing them to [facility]. Pending on [employer]ail[employer] using [employer] telephone visit from yesterday. Pending# [id number] Letter and Meggans chart note faxed to [phone] and confirmed PC to Dr. Gregory office. Requesting fax regarding medication recommendation sent to [phone]. Will discuss with Jo Levy. PC to dr Gregory office. Placed on hold and disconnected. Will try again later. Reviewed plan for bridging with [facility] pharmacist. Patient's CrCl is 31. She advised lovenox 40 mg BID for bridging. -patient will take last dose of Eliquis on 10/19/24 -starting on 10/20/24, patient will start lovenox 40 mg BID -she will take her last dose of lovenox morning of 10/22. -No lovenox the evening of 10/22 or morning of 10/23 Lab order faxed to [facility] [phone]/confirmed I need PB to please finish his chart note so I can submit this auth Spoke with patient, she will have labs drawn tomorrow at [facility]. Will have timber hewer fax lab orders over Reviewed lab work with Butch Gupta APRN, will have patient hold lisinopril until after procedure. Okay to proceed with TAVR, pended case request Spoke with patient verbalized understanding of medication change. Agreed to below procedure date/time. Dx: Severe Aortic stenosis Procedure: TAVR Date/Time: 10/23/24 at 7:30 am Surgeon: Dr. Canas/ Dr. self Location: [facility] Admission: [facility] Anesthesia: DEVANG Levy notified to schedule procedure and obtain insurance auth. Patient scheduled for telephone visit for H&P update and to review bridging instructions 10/16. Reviewed TAVR teach instructions while patient was on the phone. TAVR procedure, instructions reviewed with pt Patient scheduled for TAVR on 10/23/24 at 7:30 am Will report to [facility] by 5:30 am Can park in the [employer] or use [employer] Manager parking at the [facility] entrance Plan on overnight stay in the hospital Will not be able to drive for 1 week after procedure Will receive moderate sedation through the IV, will be relaxed but awake during the procedure Nothing to eat or drink after midnight Hold all morning medications Will call with any questions/concerns Patient/family verbalized understanding. Patient is scheduled for TAVR on 10/23/24. -Reviewed bridging with [facility] pharmacist. Patient current CrCl is 24 which [...] with TAVR. BMP results from 10/03/24 at [facility] show creatinine 1.82 with GRF 28. Will have BROKERAGE CLERK review and place TAVR case request if appropriate documented in this encounter [facility] 10-24-2024 Nurse Note All discharge instructions gone over with pt and family. Med rec revoewed in depth. All restrictions, activity, site care and precautions gone over along with appointments. Saline lock removed. To daughters car via wheelchair, discharged home. [facility] 10-24-2024 Nurse Note All discharge instructions [...] eating her Breakfast. documented in this encounter [facility] 10-24-2024 Note [facility] [address] [address] Dept: [phone] Dept Visit type: Established : 1945 Reason for Visit: Cardiac Valve Problem and Hospital Follow-up Assessment and Plan 1. Severe aortic stenosis S/p TAVR. Contiue Eliquis, SBE prophylaxis.Echo one month 2. 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 Chronic [...] specialty: Independent interpretation of tests: Basim Joel, BROKERAGE CLERK - [employer]FER [employer] [1] Allergies Allergen Reactions Amlodipine Swelling Ciprofloxacin [...] Rfl: [3] Past Medical History: Diagnosis Date Lares anemia 2010 [4] Past Surgical History: Procedure Laterality Date BLADDER REPAIR CARDIAC CATHETERIZATION N/A 10/23/2024 Performed by Memo Canas MD at [facility] OR CYSTECTOMY (HISTORICAL) LAPAROSCOPIC NEPHRECTOMY (HISTORICAL) Left TOTAL ABDOMINAL HYSTERECTOMY [5] Family History Problem Relation Name (more content not included)... [facility] 10-24-2024 Note Attestation signed by Memo [...] discharge. Referral has been made to the [facility] Outpatient Cardiac Rehabilitation Program. (more content not included)... [facility] 10-24-2024 Hospital Discharge instructions Dylon Gupta APRN - ROOFER VINYL COATING - 10/24/2024 8:35 AM EDT - Please call the Heart [facility] with any questions: [phone] -You will have have the following follow [...] unless otherwise specified. documented in this encounter [facility] 10-24-2024 History of Present illness Narrative Images from the original note were not included. PHYSICAL THERAPY [facility] Name/MRN: Linda Peralta ([id number]) Date: 10/24/2024 PT orders received per Oniel activity/mobility score. Patient currently with Oniel activity/mobility score greater than 2. Per therapy services guidelines, will discharge PT orders. Please place regular PT eval/treat orders if deemed appropriate. Shea Perez PT documented in this encounter [facility] 10-24-2024 Nurse Note Pt had a restful night and even got up the the bathroom during the night with standby assist. Pt is up in a chair eating her Breakfast. 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 Unable to discuss Phase II Cardiopulmonary Rehab Referral with Linda Peralta at this time. Will follow to discuss program when appropriate. Patient will be contacted at home if discharged prior to discussion. [facility] [id number] NoteReceived referral and reviewed chart. Unable to discuss Phase II Cardiopulmonary Rehab Referral with Linda Peralta at this time. Will follow to discuss program when appropriate. Patient will be contacted at home if discharged prior to discussion. [facility]09-03-2025 Consult note* Juan Alberto Tena - 10/23/2024 12:25 PM EDT Associated Order(s): IP CONSULT TO CARDIAC REHAB Received referral and reviewed chart. Unable to discuss Phase II Cardiopulmonary Rehab Referral with Linda Peralta at this time. Will follow to discuss program when appropriate. Patient will be contacted at home if discharged prior to discussion. documented in this [facility]09-03-2025 NotePatient: Linda Peralta Procedure Summary Date: 10/23/24 Room / Location: [facility] Operating Room Anesthesia Start: 733 Anesthesia Stop: [...] discharged once all PACU criteria has been met.[facility] [id number] NotePatient: Linda Peralta Procedure Summary Date: 10/23/24 Room / Location: [facility] Operating Room Anesthesia Start: 733 Anesthesia Stop: [...] Allowed opportunity for questions and acknowledgement of understanding.[facility]09-03-2025 NoteArterial Line: Date/Time: 10/23/2024 8:35 AM [...] Staffing Performed: Other Other staff: Memo Canas, [facility]09-03-2025 NoteH&P reviewed. The patient was examined and there are no changes to the H&P.[facility]09-03-2025 NoteH&P reviewed. The patient was examined and there are no changes to the H&P.[facility]09-03-2025 Procedure note* Op Note - William Self DO - 10/23/2024 7:34 AM EDT CARDIOTHORACIC SURGERY--OPERATIVE NOTE Date: 10/23/24 Preoperative diagnosis: Severe symptomatic aortic stenosis Chronic diastolic congestive heart failure Frailty Postoperative diagnosis: Severe symptomatic aortic stenosis Chronic diastolic congestive heart failure Frailty Surgeon: Rocky Self DO Cell Efficiency Supervisor: Memo Canas MD Procedure: Transcatheter aortic valve [...] Disposition: Stable to ICU Rocky Self DO [facility] Cardiothoracic Surgery [employer] Phone: 1(870) 722-587209-03-2025 Miscellaneous Notes* Op Note - William Self DO - 10/23/2024 7:34 AM EDT CARDIOTHORACIC SURGERY--OPERATIVE NOTE Date: 10/23/24 Preoperative diagnosis: Severe symptomatic aortic stenosis Chronic diastolic congestive heart failure Frailty Postoperative diagnosis: Severe symptomatic aortic stenosis Chronic diastolic congestive heart failure Frailty Surgeon: Rocky Self DO Cell Efficiency Supervisor: Memo Canas MD Procedure: Transcatheter aortic valve [...] Disposition: Stable to ICU Rocky Self DO [facility] Cardiothoracic Surgery * Pre-Procedure Note - Jacinda [...] Called for chest X-RAY documented in this [facility]09-03-2025 Evaluation note* Pre- Procedure Note - Jacinda Jackman RN - 10/23/2024 7:[address] Canas contacted about pre-procedure steroid not ordered. No new orders at this time for [address] [facility] [id number] Evaluation note* Pre-Procedure Note - Jacinda Jackman RN - 10/23/2024 6:21 AM EDT X-ray to bedside [facility] [id number] Evaluation note* Pre-Procedure Note - Jacinda Jackman RN - 10/23/2024 6:03 AM EDT Called for chest X-RAY [place] [id number] NotePatient: Linda Peralta Procedure Information Date/Time: 10/23/24 0730 Procedures: TRANSCATHETER AORTIC VALVE REPLACEMENT, TRANSTHORACIC ECHOCARDIOGRAM TRANSCATHETER AORTIC VALVE REPLACEMENT, TRANSTHORACIC ECHOCARDIOGRAM (Chest) [place] [facility] [place] Room Surgeons: Memo Canas MD; William [...] Past Medical History: Past Medical History: 2011: Lares anemia Past Surgical History: Past Surgical History: [...] cath under media Goldie Rojas APRN - [employer] GALA Screening Labs: No results found for: [...] Age of Onset Heart attack Mother Stroke [facility]09-02-2025 Telephone encounter Note* Telephone Encounter - Jewels Levy - 10/22/2024 2:51 PM EDT Letter refaxed to [phone] along w/ Kishore chart note. Confirmation 10/16/24 at 3:07p Confirmed 10/22/2024 at 3:59p [facility] [id number] Telephone encounter Note* Telephone Encounter - Desirae Martinez RN - 10/22/2024 10:39 AM EDT Spoke with Dr. Gregory's office to follow-up on IV hydrocortisone dosing. Did not receive fax from last week, confirmed number of [phone]. Requested patient will need to have telephone visit at [address] Gregory to review instructions. Requested to have OV note and letter re-faxed to the above number. Will provide valve clinic fax number so Dr. Gregory's office can fax recommendations back [place] [id number] Telephone encounter Note* Telephone Encounter - Jewels Levy - 10/22/2024 9:42 AM EDT Approved per fax. Scanned in under Media. Approval [id number] Sched on all 3 calendars and requested on [employer]. [place] [id number] History and physical note* Dylon Gupta APRN - [employer] - 10/22/2024 8:32 AM EDT H+ P copied to chart from (office provider's name Dylon Gupta APRN) progress note dated 10/16/24 onbehalf of (procedural physician's name Dr. Canas). [facility] Telehealth Cardiology Note DATE of SERVICE: 10/16/24 TIME of SERVICE: 12:45 PM Chief Complaint: Chief Complaint Patient presents with Follow-up History of Present Illness: Linda Peralta is a 79 y.o. female known to Dr. Marte with a history for CAD, HPL, DVT, PE, Lares's disease, CKD s/p left nephrectomy (donated) and [...] dyspnea with moderate activity. No CAD per [facility]. Weight 156 lbs. Last clinic visit Telehealth [...] [Medical History] Past Medical History Diagnosis Date Lares anemia 2010 Past Surgical History [Surgical History] [...] redirect to the Timeline version of the [facility] SmartLink. Limited Telehealth exam Constitutional: [x]Alert [x]Oriented [...] or 3b CKD (HCC) CKD followed by fire information officer Dr. Tarango in [place]. Most recent BMP showed SCr 1.61 with CrCl 31. 3. Acute deep vein thrombosis (DVT) of right lower extremity, unspecified vein (HCC) Questionable IVC filter. Currently on Eliquis. Per daughter, LE edema has improved. Post TAVR, willrefer patient to Dr. Gaffney-vascular. We reached out to [facility] for recommendations on bridging. Will stop [...] 10 mg TID. Will reach out to political aide Dr. Gregory in [place] ([phone]). for recommendations on IV hydrocortisone prior to [...] patient and provider is done in the [facility] from the [facility] supported by [facility]. Cosigned by Memo Canas MD at 11/01/2024 9:49 PM EDT [facility] [id number] History and physical note* Dylon Gupta APRN - TELLY - 10/22/2024 8:32 AM EDT H+ P copied to chart from (office provider's name Dylon Gupta APRN) progress note dated 10/16/24 onbehalf of (procedural physician's name Dr. Canas). [facility] Telehealth Cardiology Note DATE of SERVICE: 10/16/24 TIME of SERVICE: 12:45 PM Chief Complaint: Chief Complaint Patient presents with Follow-up History of Present Illness: Linda Peralta is a 79 y.o. female known to Dr. Marte with a history for CAD, HPL, DVT, PE, Lares's disease, CKD s/p left nephrectomy (donated) and [...] dyspnea with moderate activity. No CAD per [facility]. Weight 156 lbs. Last clinic visit Telehealth [...] redirect to the Timeline version of the [employer] SmartLink. Limited Telehealth exam Constitutional: [x]Alert [x]Oriented [...] or 3b CKD (HCC) CKD followed by fire information officer Dr. Tarango in [place]. Most recent BMP showed SCr 1.61 with CrCl 31. 3. Acute deep vein thrombosis (DVT) of right lower extremity, unspecified vein (HCC) Questionable IVC filter. Currently on Eliquis. Per daughter, LE edema has improved. Post TAVR, willrefer patient to Dr. Gaffney-vascular. We reached out to [facility] for recommendations on bridging. Will stop [...] a day for 2 days only. 5. Lares's disease (HCC) Patient is currently taking hydrocortisone (Cortef) 10 mg TID. Will reach out to political aide Dr. Gregory in [place] ([phone]). for recommendations on IV hydrocortisone prior to [...] patient and provider is done in the [facility] from the [facility] supported by [facility]. Cosigned by Memo Canas MD at 11/01/2024 9:49 PM EDT documented in this [facility]09-02-2025 NoteH+ P copied to chart from (office provider's name Dylon GuptaLIDIA) progress note dated 10/16/24 on behalf of (procedural physician's name Dr. Canas). [facility] Telehealth Cardiology Note DATE of SERVICE: 10/16/24 TIME of SERVICE: 12:45 PM Chief Complaint: Chief Complaint Patient presents with Follow-up History of Present Illness: Linda Peralta is a 79 y.o. female known to Dr. Marte with a history for CAD, HPL, DVT, PE, Lares's disease, CKD s/p left nephrectomy (donated) and [...] dyspnea with moderate activity. No CAD per [facility]. Weight 156 lbs. Last clinic visit Telehealth [...] [Medical History] Past Medical History Diagnosis Date Lares anemia 2010 Past Surgical History [Surgical History] [...] redirect to the Timeline version of the [facility] SmartLink. Limited Telehealth exam Constitutional: [x]Alert [x]Oriented [...] whether st (more content not included)...[facility] [id number] NoteH+ P copied to chart from (office provider's name Dylon Gupta APRN) progress note dated 10/16/24 on behalf of (procedural physician's name Dr. Canas). [facility] Telehealth Cardiology Note DATE [...] dyspnea with moderate activity. No CAD per [facility]. Weight 156 lbs. Last clinic visit Telehealth [...] redirect to the Timeline version of the [employer] SmartLink. Limited Telehealth exam Constitutional: [x]Alert [x]Oriented [...] disease, unspecified whether st (more content not included)...[facility]08-29-2025 NotePre TAVR phone call placed. Reviewed, procedure, instructions and meds. Pt verbalizes understanding. Pt knows to call [phone] with any concerns. 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 BROKERAGE CLERK notified to complete prep for proc Diagnosis: Aortic Stenosis Procedure being done: TAVR Date/time of procedure: 10/23/24 at 7:30 am Surgeon: Dr. Canas 2nd surgeon: Dr. Self Admission type: To be admitted Anesthesia: MAC Completed: BMP, CBC, CTA, H&P Date completed: 10/17/24 Additional orders Type and screen AM of [facility] 10-18-2024 Telephone encounter Note* Telephone Encounter - Shilpi Cook RN - 10/18/2024 4:56 PM EDT Pre TAVR phone call placed. Reviewed, procedure, instructions and meds. Pt verbalizes understanding. Pt knows to call [phone] with any concerns. 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 BROKERAGE CLERK notified to complete prep for proc Diagnosis: Aortic Stenosis Procedure being done: TAVR Date/time of procedure: 10/23/24 at 7:30 am Surgeon: Dr. Canas 2nd surgeon: Dr. Self Admission type: To be admitted Anesthesia: MAC Completed: BMP, CBC, CTA, H&P Date completed: 10/17/24 Additional orders Type and screen AM of proc [facility] [id number] Telephone encounter Note* Telephone Encounter - Jewels Levy - 10/18/2024 3:56 PM EDT Labs scanned under Media [facility] HospitalJydesb10-01-1093 Telephone encounter Note* Telephone Encounter - Jewels Levy - 10/18/2024 3:34 PM EDT Requested lab from [place]. She is faxing them to [facility]. [place] [id number] Telephone encounter Note* Telephone Encounter - Jewels Levy - 10/17/2024 10:51 AM EDT Pending on [employer] using [employer] telephone visit from yesterday. Pending# [id number] [facility] HospitalWitsgi47-68-1823 Telephone encounter Note* Telephone Encounter - Jewels Levy - 10/16/2024 3:07 PM EDT Letter and [employer] chart note faxed to [phone] [facility] [facility] HospitalXnrnrj54-70-8296 Telephone encounter Note* Telephone Encounter - Shilpi Cook RN - 10/16/2024 2:27 PM EDT PC to Dr. Gregory office. Requesting fax regarding medication recommendation sent to [phone]. Will discuss with Jo Levy. [place] [id number] Telephone encounter Note* Telephone Encounter - Shilpi Cook RN - 10/16/2024 2:13 PM EDT PC to dr Gregory office. Placed on hold and disconnected. Will try again later. [place] [id number] History of Present illness Narrative* LIDIA Mon CNP - 10/16/2024 11:00 AM EDT [facility] Telehealth Cardiology Note DATE of SERVICE: 10/16/24 TIME of SERVICE: 12:45 PM Chief Complaint: Chief Complaint Patient presents with Follow-up History of Present Illness: Linda Peralta is a 79 y.o. female known to Dr. Marte with a history for CAD, HPL, DVT, PE, Lares's disease, CKD s/p left nephrectomy (donated) and [...] dyspnea with moderate activity. No CAD per [facility]. Weight 156 lbs. Last clinic visit Telehealth [...] redirect to the Timeline version of the [employer] SmartLink. Limited Telehealth exam Constitutional: [x]Alert [x]Oriented [...] or 3b CKD (HCC) CKD followed by fire information officer Dr. Tarango in [place]. Most recent BMP showed SCr 1.61 with CrCl 31. 3. Acute deep vein thrombosis (DVT) of right lower extremity, unspecified vein (HCC) Questionable IVC filter. Currently on Eliquis. Per daughter, LE edema has improved. Post TAVR, willrefer patient to Dr. Gaffney-vascular. We reached out to [facility] for recommendations on bridging. Will stop [...] a day for 2 days only. 5. Lares's disease (HCC) Patient is currently taking hydrocortisone (Cortef) 10 mg TID. Will reach out to political aide Dr. Gregory in [place] ([phone]). for recommendations on IV hydrocortisone prior to [...] patient and provider is done in the [facility] from the [facility] supported by [facility]. [1] Past Medical History: Diagnosis Date [...] 09/03/2024), Disp: , Rfl: documented in this [facility]08-27-2025 Telephone encounter Note* Telephone Encounter - LIDIA Mon CNP - 10/16/2024 8:21 AM EDT Reviewed plan for bridging with [facility] pharmacist. Patient's CrCl is 31. She advised lovenox 40 mg BID for bridging. -patient will take last dose of Eliquis on 10/19/24 -starting on 10/20/24, patient will start lovenox 40 mg BID -she will take her last dose of lovenox morning of 10/22. -No lovenox the evening of 10/22 or morning of 10/23 [place] [id number] Telephone encounter Note* Telephone Encounter - Jewels Levy - 10/15/2024 11:14 AM EDT Lab order faxed to [facility] [phone]/confirmed [place] [id number] Telephone encounter Note* Telephone Encounter - Jewels eLvy - 10/15/2024 9:58 AM EDT I need PB to please finish his chart note so I can submit this auth [place] [id number] Telephone encounter Note* Telephone Encounter - Desirae Martinez RN - 10/14/2024 3:09 PM EDT Spoke with patient, she will have labs drawn tomorrow at [place]. Will have timber hewer fax lab orders over [place] [id number] NoteReviewed lab work with Butch Gupta APRN, will have patient hold lisinopril until after procedure. Okay to proceed with TAVR, pended case request Spoke with patient verbalized understanding of medication change. Agreed to below procedure date/time. Dx: Severe Aortic stenosis Procedure: TAVR Date/Time: 10/23/24 at 7:30 am Surgeon: Dr. Canas/ Dr. self Location: [facility] Admission: TBA Anesthesia: DEVANG Levy notified to schedule procedure and obtain insurance auth. Patient scheduled for telephone visit for H&P update and to review bridging instructions 10/16. Reviewed TAVR teach instructions while patient was on the phone. TAVR procedure, instructions reviewed with pt Patient scheduled for TAVR on 10/23/24 at 7:30 am Will report to [facility] by 5:30 am Can park in the [facility] Parking Deck or use [employer] parking at the [facility] entrance Plan on overnight stay in the hospital Will not be able to drive for 1 week after procedure Will receive moderate sedation through the IV, will be relaxed but awake during the procedure Nothing to eat or drink after midnight Hold all morning medications Will call with any questions/concerns Patient/family verbalized understanding.[facility]08-25-2025 Telephone encounter Note* Telephone Encounter - [...] am Surgeon: Dr. Canas/ Dr. self Location: [facility] Admission: TBA Anesthesia: DEVANG Levy notified to schedule procedure and obtain insurance auth. Patient scheduled for telephone visit for H&P update and to review bridging instructions 10/16. Reviewed TAVR teach instructions while patient was on the phone. TAVR procedure, instructions reviewed with pt Patient scheduled for TAVR on 10/23/24 at 7:30 am Will report to [facility] by 5:30 am Can park in the [facility] Parking Deck or use Mine [employer] parking at the [facility] entrance Plan on overnight stay in the hospital Will not be able to drive for 1 week after procedure Will receive moderate sedation through the IV, will be relaxed but awake during the procedure Nothing to eat or drink after midnight Hold all morning medications Will call with any questions/concerns Patient/family verbalized understanding. [facility] [id number] Telephone encounter Note* Telephone Encounter - LIDIA Mon CNP - 10/14/2024 10:46 AM EDT Patient is scheduled for TAVR on 10/23/24. -Reviewed bridging with [facility] pharmacist. Patient current CrCl is 24 which [...] morning. (Will review this with Dr. Canas) [facility] [id number] Telephone encounter Note* Telephone Encounter - Jewels Levy - 10/10/2024 4:12 PM EDT Results scanned under Media [facility] [id number] Miscellaneous Notes* Telephone Encounter - Jewels Levy [...] - 10/07/2024 4:10 PM EDT I called [place] lab and l/m to send me results * Telephone Encounter - Jewels Levy - 10/02/2024 4:38 PM EDT Order faxed to and confirmed * Telephone Encounter - LIDIA Patel CNP - 10/02/2024 4:26 PM EDT Spoke with patient regarding US kidney. Repeat BMP . Please send lab req to [facility]. Will discuss moving forvtsr with TAVR with Dr. Canas documented in this encounterSSCCI Hospital LimaOazxnc69-18-7725 Telephone encounter Note* Telephone Encounter - Jewels Levy - 10/10/2024 1:38 PM EDT I called and spoke to Salima and she is faxing result [facility] HospitalFxzmre80-50-1278 Telephone encounter Note* Telephone Encounter - Desirae Martinez RN - 10/10/2024 1:15 PM EDT Reviewed with Butch Joel APRN as patient completed renal US, plan if BMP shows stable function to proceed with TAVR. BMP results from 10/03/24 at [place] show creatinine 1.82 with GRF 28. Will have BROKERAGE CLERK review and place TAVR case request if appropriate [place] [id number] Telephone encounter Note* Telephone Encounter - Jewels Levy - 10/08/2024 2:11 PM EDT I need PB chart note finished from 09/03/24 to do this auth [place] [id number] Miscellaneous Notes* Telephone Encounter - Jewels Levy - 10/08/2024 2:11 PM EDT I need PB chart note finished from 09/03/24 to do this auth * Telephone Encounter - Jewels Levy - 10/07/2024 4:10 PM EDT I called [place] lab and l/m to send me results * Telephone Encounter - Jewels Levy - 10/02/2024 4:38 PM EDT Order faxed to and confirmed * Telephone Encounter - Basim Joel APRN - [employer] - 10/02/2024 4:26 PM EDT Spoke with patient regarding US kidney. Repeat [facility] . Please send lab req to [facility]. Will discuss moving forwasr with TAVR with Dr. Canas documented in this encounterSSCCI Hospital [id number] Telephone encounter Note* Telephone Encounter - Jewels Levy - 10/07/2024 4:10 PM EDT I called [place] lab and l/m to send me results [facility] HospitalDatffp06-91-1962 Miscellaneous Notes* Telephone Encounter - Jewels Levy - 10/07/2024 4:10 PM EDT I called [place] lab and l/m to send me results * Telephone Encounter - Jewels Levy - 10/02/2024 4:38 PM EDT Order faxed to and confirmed * Telephone Encounter - LIDIA Patel CNP - 10/02/2024 4:26 PM EDT Spoke with patient regarding US kidney. Repeat BMP . Please send lab req to [facility]. Will discuss moving forwasr with TAVR with Dr. Canas documented in [place] encounterSSara [place] [id number] Telephone encounter Note* Telephone Encounter - Jewels Levy - 10/02/2024 4:38 PM EDT Order faxed to and confirmed [facility] HospitalVqfacq74-04-9691 Miscellaneous Notes* Telephone Encounter - Jewels Levy - 10/02/2024 4:38 PM EDT Order faxed to * Telephone Encounter - LIDIA Patel CNP - 10/02/2024 4:26 PM EDT Spoke with patient regarding US kidney. Repeat [facility] . Please send lab req to [facility]. Will discuss moving forwasr with TAVR with Dr. Canas documented in this [place] [id number] Miscellaneous Notes* Telephone Encounter - Jewels Levy - 10/02/2024 4:38 PM EDT Order faxed to and confirmed * Telephone Encounter - LIDIA Patel CNP - 10/02/2024 4:26 PM EDT Spoke with patient regarding US kidney. Repeat [facility] . Please send lab req to [facility]. Will discuss moving forwasr with TAVR with Dr. Canas documented in this [place] [id number] Telephone encounter Note* Telephone Encounter - LIDIA Patel CNP - 10/02/2024 4:26 PM EDT Spoke with patient regarding US kidney. Repeat BMP . Please send lab req to [facility]. Will discuss moving forvtsr with TAVR with Dr. Canas [place] [id number] Telephone encounter Note* Telephone Encounter - LIDIA Patel CNP - 09/26/2024 5:28 PM EDT BMP review. Bump in BUN/creat after 3 days of 40 mg po Lasix. Spoke with daughter. Weight down to 144 #, swelling, improved, dyspnea improved. Will use Lasix 20 mg po for weight gain greater than 3 lbs overnight or 5lbs in a week. Daughter will relay recommendations. [place] [id number] Miscellaneous Notes* Telephone Encounter - LIDIA Patel [...] Daughter will relay recommendations. documented in this [place] [id number] NoteHNO ID: [id number] Author: SHAKIRA BENOIT RDMS Service: ? Author [...] PATIENT PRESENTS WITH AN IMPLANTABLE OR ATTACHED AUTOMATIC BLOCKER: No RADIOLOGY DEPARTMENT: Ultrasound PERIPHERAL IV DATA: Not applicable SIGNED BY: Shakira Benoit RDMS September 26, 2024 2:20 [facility]08-04-2025 Telephone encounter Note* Telephone Encounter - Sindi Angeles - 09/23/2024 8:25 AM EDT Per appointment desk, patient scheduled with ID on 10-23-24 at 9:00a.m. with Dr. Noble Chowdary. Cecy Angeles September 23, 2024 8:26 AM [facility]08-04-2025 Miscellaneous Notes* Telephone Encounter - Sindi [...] 19, 2024 12:06 PM documented in this encounterBluffton Hospital07-31-2025 History of Present illness Narrative* Basim Joel, BROKERAGE CLERK - [employer] - 09/19/2024 3:00 PM EDT Images from the original note were not included. [facility] CARDIOLOG[facility] - [address] [address] Dept: [phone] Dept Visit type: Established : 1945 Reason [...] Dr. Gaffney- vascular. Will reach out to [facility] for bridging recommendation 3. Acute systolic heart failure (HCC) Will trial low dose diuretic cautiously, follow renal function, BP 4. Lares's disease (HCC) As above, continue steroids 5. [...] dyspnea with moderate activity. No CAD per [facility]. Weight 156 lbs. Last clinic visit She [...] visit. [3] Past Medical History: Diagnosis Date Lares anemia 2010 [4] Past Surgical History: Procedure Laterality Date BLADDER REPAIR HX CYSTECTOMY (HISTORICAL) LAPAROSCOPIC NEPHRECTOMY (HISTORICAL) Left TOTAL ABDOMINAL HYSTERECTOMY [5] Family History Problem Relation Name Age of Onset Heart attack Mother Stroke Father documented in this [facility]07-31-2025 History of Present illness Narrative* LIDIA Patel CNP - 09/19/2024 3:00 PM EDT Images from the original note were not included. [facility] [address] [address] Dept: [phone] Dept Visit type: Established : 1945 Reason [...] Dr. Gaffney- vascular. Will reach out to [facility] for bridging recommendation 3. Acute systolic heart failure (HCC) Will trial low dose diuretic cautiously, follow renal function, BP 4. Lares's disease (HCC) As above, continue steroids 5. [...] dyspnea with moderate activity. No CAD per [facility]. Weight 156 lbs. Last clinic visit She [...] specialty: Independent interpretation of tests: Basim Joel, BROKERAGE CLERK - [employer] [1] Allergies Allergen Reactions Amlodipine Swelling Ciprofloxacin [...] visit. [3] Past Medical History: Diagnosis Date Lares anemia 2010 [4] Past Surgical History: Procedure Laterality Date BLADDER REPAIR HX CYSTECTOMY (HISTORICAL) LAPAROSCOPIC NEPHRECTOMY (HISTORICAL) Left TOTAL ABDOMINAL HYSTERECTOMY [5] Family History Problem Relation Name Age of Onset Heart attack Mother Stroke Father documented in this [facility]07-31-2025 Miscellaneous Notes* Addendum Note - LIDIA Patel CNP - 09/19/2024 3:00 PM EDTAddended by: BASIM JOEL on: 09/23/2024 01:57 PM Modules accepted: Orders documented in this [facility]07-31-2025 Note* Addendum Note - LIDIA Patel CNP - 09/19/2024 3:00 PM EDTAddended by: BASIM JOEL on: 09/23/2024 01:57 PM Modules accepted: [id number] Note* Addendum Note - LIDIA Patel CNP - 09/19/2024 3:00 PM EDTAddended by: BASIM JOEL. on: 09/23/2024 01:57 PM Modules accepted: [facility] [id number] Telephone encounter Note* Telephone Encounter - Sindi [...] Cecy Angeles September 19, 2024 12:06 PM [facility]07-31-2025 Instructions* Patient Instructions* Arelis Smith APRN.CNP [...] Plums Champagne Prunes Cheese Raisins Chicken livers [place] bread Chilies/Spicy foods Saccharin Chocolate Sour cream [place] fruits Soy sauce Coffee Strawberries corned beef Tea Cranberries Tomatoes Krystyna beans Vinegar Grapes Vitamins-buffered with aspartame Caffeine Guava Yogurt Artificial Sweeteners Lemon juice Lentils Artificial Colorants Alternative foods This list offers food alternatives to the foods on the list above. Alcohol or pebbles (only as flavoring) Almonds Apple (small) Blueberries Coffee (acid-free Kava) or highly roasted Extracts, marta, rum, etc Tristanian sauternes Imitation sour cream Onions (cooked?) [place] juice -- reduced acid Peanuts Pears Processed [...] for Female Pelvic Medicine and Reconstructive Surgery [facility] Recurrent UTI Prevention Program: Takes 6 months [...] re-establishing the good bacteria in the vaginal carmen. Numerous probiotics are available over the counter [...] laxatives such as miralax. documented in this encounterBluffton Hospital07-31-2025 History of Present illness Narrative* Arelis Smith APRN.TELLY - 09/19/2024 11:00 AM EDT Images from the original note were not included. [facility] [place] UROL [place] EXCHANGE NEW PATIENT UROLOGY VISIT 09/19/2024 10:34 AM PATIENT NAME: Linda Peralta DATE OF : 1945 TODAY'S DATE: 09/19/2024 Referring Provider: Rocio Elizalde [address] [facility] [address] Referring Note Reviewed: Yes Chief Complaint: recurrent [...] ASHD (arteriosclerotic heart disease) 04/25/2009 Asthma ([facility]) Benign neoplasm of colon 04/26/2005 Tubular adenoma Chronic diarrhea 03/15/2010 Chronic sphenoidal sinusitis 09/15/2003 Closed displaced fracture of fifth metatarsal bone of right foot 03/22/2023 Closed fracture of bone of right foot 11/08/2022 Collagenous colitis 03/30/2010 Contact dermatitis and other eczema, due to unspecified cause 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 Cardiac cath normal. 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Lares's disease Cystocele, midline 07/23/2007 Diverticulosis of colon [...] W/COLLJ SPEC WHEN PFRMD 03/26/2010 Inpatient at [facility] ESOPHAGOGASTRODUODENOSCOPY TRANSORAL DIAGNOSTIC 02/2002 EGD ESOPHAGOGASTRODUODENOSCOPY [...] , Taking? , Authorizing Provider Rocio Elizalde, BROKERAGE CLERK.[employer] Medication nitroglycerin sublingual (NITROQUICK) 0.4 mg SL [...] Date Value 06/08/2023 Negative 04/16/2015 Neg Specific Union, Ur (no units) Date Value 06/08/2023 1.020 [...] LUCACREA, LUCREACL, LWK, LUSUL in the last 60335 hours. Physical Exam Vitals and nursing note [...] to pharmacy. Patient givenprinted information. Arelis Smith APRN.[employer] Consultation requested by Rocio Elizalde [address] [facility] [address] for an opinion regarding Linda Peralta patient and my final recommendations will be communicated back to the requesting physician by way of shared Medical record or letter via US mail. Recording using [employer] software for draft documentation of the visit was discussed with the patient/authorized farm loan representative; all questions welcomed and answered. Patient/authorized farm loan representative agreed to proceed documented in this encounterBluffton Hospital07-31-2025 NoteHNO ID: [id number] Author: ARELIS SMITH APRN.TELLY Service: ? Author Type: Nurse Practitioner Type: Progress Notes Filed: 09/20/2024 13:00 Note Text: [facility] [place] UROL [place] EXCHANGE NEW PATIENT UROLOGY VISIT 09/19/2024 10:34 AM PATIENT NAME: Linda Peralta DATE OF : 1945 TODAY'S DATE: 09/19/2024 Referring Provider: Rocio Elizalde [address] [facility] [address] Referring Note Reviewed: Yes Chief Complaint: recurrent [...] of lower extremity (deep venous thrombosis) ([facility]) 03/27/2009 Left leg Esophageal reflux Gallstones 03/06/2016 [...] W/COLLJ SPEC WHEN PFRMD 03/26/2010 Inpatient at [facility] ESOPHAGOGASTRODUODENOSCOPY TRANSORAL DIAGNOSTIC 02/2002 EGD ESOPHAGOGASTRODUODENOSCOPY TRANSORAL DIAGNOSTIC 05/01/2009 EGD ESOPHAGOGASTRODUODENOSCOPY TRANSORAL DIAGNOSTIC 11/18/2009 EGD, EXC CYST/ABERRANT BREAST TISSUE OPEN 1/> LESION 1960 benign IVC FILTER PERCUTANEOUS 03/31/2009 LAPS SURG CHOLECYSTECTOMY W/CHOLANGIOGRAPHY 03/30/2016 LEFT HEART CATH,PERCUTANEOUS 04/27/2009 Cardiac cath, L (more content not included)...[facility] 09-19-2024 Telephone encounter Note* Telephone Encounter - Ama Diaz RN - 09/19/2024 10:42 AM EDT Pt has Urology appointment set up. Ama Diaz RN [facility]07-31-2025 Miscellaneous Notes* Telephone Encounter - Ama [...] Pt. Ama Diaz RN documented in this encounterBluffton Hospital07-24-2025 Telephone encounter Note * Telephone Encounter [...] call and advise Pt. Ama Diaz RN [facility]07-15-2025 History of Present illness Narrative* Baldo De La Cruz MD - 09/03/2024 4:00 PM EDT Images from the original note were not included. [facility] Group: Cardiothoracic Surgery Multidisciplinary Heart Valve Clinic Date: 09/03/24 Patient:Linda Peralta 1945 79 y.o. female [id number] Subjective: HPI: Linda Peralta [address] Marte is being evaluated for aortic valve stenosis. Echocardiogram completed on 07/03/24 showed moderate to severe aortic valve stenosis with mean anjldsif09 mm Hg. Per note, patient with past medical history significant for STEMI 2009, HLD, DVT, PE, Moris's Disease, CKD, s/p left nephrectomy and right partial nephrectomy, mitral valve prolapse, and aortic valve stenosis. Pt underwent TOMI on 07/03/24 which demonstrated LVEF 45%, 1-2+ NV, stage 1 diastolic dysfunction, moderately severe aortic [...] were no vitals taken for this visit. @[id number]@ Physical Exam Constitutional: Appearance: Normal appearance. HENT: [...] echocardiography,and other diagnostic images. documented in this [facility]07-15-2025 History of Present illness Narrative* Memo Canas MD - 09/03/2024 3:30 PM EDT Images from the original note were not included. [facility] - [address] [address] Dept: [phone] Dept Visit type: New : 1945 Reason [...] proceeding with TAVR. We will contact her political aide for recommendations about steroid dosingaround the time [...] mg, Oral, Daily, Dylon Gupta APRN - [employer] methenamine hippurate (Hiprex) tablet 1 g, 1 [...] 10/23/2024 Performed by Memo Canas MD at [facility] OR CYSTECTOMY (HISTORICAL) LAPAROSCOPIC NEPHRECTOMY (HISTORICAL) Left TOTAL ABDOMINAL HYSTERECTOMY [5] Family History Problem Relation Name Age of Onset Heart attack Mother Stroke Father documented in this [facility]07-10-2025 NoteHNO ID: [id number] Author: AMOS FLOYD MD Service: ? Author Type: Physician Type: Progress Notes Filed: 08/29/2024 11:26 Note Text: This note was created using [employer]. Subjective Linda Peralta is a 79 year old female here with daughter. She was doing better. Blood pressure was elevating now. Her political aide, Dr. Gregory, did not need to call in a medication to raise her blood pressure. Edema was improving. Dysuria resolved. She was scheduled to see cardiac surgeons in [facility] next week for possible TAVR. Review [...] I35.0 - To see cardiac surgery in [facility]. 6. Thyroid nodule greater than or equal to 1 cm in diameter incidentally noted on imaging study, right side. - ICD9: 241.0, ICD10: E04.1 - We reviewed this. Dr. Gregory palpated her thyroid and was aware. He recommended monitoring only. Amos Floyd [facility]07-10-2025 History of Present illness Narrative* Amos Floyd MD - 08/29/2024 10:54 AM EDT This note was created using NoteWriter. Subjective Linda Peralta is a 79 year old female here with daughter. She was doing better. Blood pressure was elevating now. Her political aide, Dr. Gregory, did not need to call in a medication to raise her blood pressure. Edema was improving. Dysuria resolved. She was scheduled to see cardiac surgeons in [facility] next week for possible TAVR. Review [...] I35.0 - To see cardiac surgery in [facility]. 6. Thyroid nodule greater than or equal to 1 cm in diameter incidentally noted on imaging study, right side. - ICD9: 241.0, ICD10: E04.1 - We reviewed this. Dr. Gregory palpated her thyroid and was aware. He recommended monitoring only. Amos Floyd MD documented in this encounterBluffton Hospital07-03-2025 NoteHNO ID: [id number] Author: ANNEMARIE READ RN Service: ? Author [...] Annemarie Read RN August 22, 2024 12:43 [facility]07-03-2025 History of Present illness Narrative* Annemarie [...] 22, 2024 12:43 PM documented in this encounterBluffton Hospital07-03-2025 NotePatient Outreach ([facility]) LINDA PERALTA ([id number]) 1945 F Date Time Provider Department 08/22/24 [...] [I25.10] 04/25/2009 DVT (deep venous thrombosis) ([facility]) [I82.409] 03/23/2012 01/23/2024 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 [M85.80] 11/13/2013 06/30/2023 Chronic nonallergic rhinitis [J31.0] 03/20/2014 Pure hypercholesterolemia [E78.00] 02/17/2015 Gallstones [K80.20] 03/06/2016 08/24/2016 Pain of upper abdomen [R10.10] 03/10/2016 02/27/2017 Personal history of colonic polyps [Z86.0100] 03/10/2016 02/27/2017 Atopic neur (more content not included)...[facility]30[facility]2025 Telephone encounter Note* Telephone Encounter - Ama Diaz RN - 08/19/2024 6:30 PM EDT Pt's daughter called and is notified of providers message and instructions. She voices understanding. Ama Diaz RN [facility]06-30-2025 Miscellaneous Notes* Telephone Encounter - Ama [...] order another antibiotic? Please advise daughter Souleymane [phone]. documented in this encounterBluffton Hospital06-30-2025 Telephone encounter Note * Telephone Encounter [...] after antibiotic is done. Amos Floyd MD [facility]06-30-2025 Telephone encounter Note* Telephone Encounter - [...] order another antibiotic? Please advise daughter Souleymane [phone]. [facility]06-26-2025 NoteHNO ID: [id number] Author: ANNEMARIE READ RN Service: ? Author Type: Registered Nurse Type: Progress Notes Filed: 08/15/2024 10:28 Note Text: Transition Care Management (TCM) Initial Outreach PCP Update / Actionable Items HRTIC TCM Home Visit Referral Source of Stratification: [facility] Hospital Admission Status: Discharged Readmission Risk Score: N/A Patient's zip code: [address] Is zip code within program service area: No Patient meets program referral criteria: No Patient does not qualify for High Risk TCM Home Visit program due to: Readmission Risk Score does not meet criteria Disposition: Patient does not qualify for HRTIC, will provide TCM outreach follow-up for 30-days Patient Source: Ptq-fb-Kugszpx (OON) Discharge Outreach Summary: Called and spoke [...] concerns at this time. Patient discharged from [facility] Discharge date: 08/09/24 Admitted for: Acute cystitis AND DVT Readmission Risk: N/A Value-Based Contract: Pattie STORM Contact: Contact made with patient: Yes Hi, my name is Annemarie Read RN and I am calling from the [facility] on behalf of your Primary Care [...] I will send your request to a delivery analyst who will contact and assist you with [...] Annemarie Read RN August 15, 2024 10:26 [facility]06-26-2025 History of Present illness Narrative* Annemarie Read RN - 08/15/2024 10:14 AM EDT Transition Care Management (TCM) Initial Outreach PCP Update / Actionable Items HRTIC TCM Home Visit Referral Source of Stratification: [facility] Hospital Admission Status: Discharged Readmission Risk Score: N/A Patient's zip code: [address] Is zip code within program service area: No Patient meets program referral criteria: No Patient does not qualify for High Risk TCM Home Visit program due to: Readmission Risk Score does not meet criteria Disposition: Patient does not qualify for HRTIC, will provide TCM outreach follow-up for 30-days Patient Source: Ogv-lg-Fwugdgv (OON) Discharge Outreach Summary: Called and spoke [...] concerns at this time. Patient discharged from [facility] Discharge date: 08/09/24 Admitted for: Acute cystitis & DVT Readmission Risk: N/A Value-Based Contract: Pattie STORM Contact: Contact made with patient: Yes Hi, my name is Annemarie Read RN and I am calling from the [facility] on behalf of your Primary Care [...] I will send your request to a delivery analyst who will contact and assist you with [...] 15, 2024 10:26 AM documented in this encounterBluffton Hospital06-26-2025 NotePatient Outreach ([facility]) LINDA PERALTA ([id number]) 1945 F Date Time Provider Department 08/15/24 ANNEMARIE READ AMBDARSHANAG During your visit today, we recorded the following information about you: Annemarie Read RN 08/15/2024 10:28 AM Signed Transition Care Management (TCM) Initial Outreach PCP Update / Actionable Items HRTIC TCM Home Visit Referral Source of Stratification: [facility] Hospital Admission Status: Discharged Readmission Risk Score: N/A Patient's zip code: [address] Is zip code within program service area: No Patient meets program referral criteria: No Patient does not qualify for High Risk TCM Home Visit program due to: Readmission Risk Score does not meet criteria Disposition: Patient does not qualify for HRTIC, will provide TCM outreach follow-up for 30-days Patient Source: Knl-pw-Xenmull (OON) Discharge Outreach Summary: Called and spoke [...] concerns at this time. Patient discharged from [facility] Discharge date: 08/09/24 Admitted for: Acute cystitis AND DVT Readmission Risk: N/A Value-Based Contract: Pattie STORM Contact: Contact made with patient: Yes Hi, my name is Annemarie Read RN and I am calling from the [facility] on behalf of your Primary Care [...] I will send your request to a delivery analyst who will contact and assist you with [...] 5 days. - ipra (more content not included)...[facility]06-25-2025 Instructions* Patient Instructions* Amos Floyd MD - 08/14/2024 12:13 PM EDT HYDRATE WELL. MESSAGE BLOOD PRESSURE READINGS IN 1-2 DAYS. DO NOT TAKE LISINOPRIL OR AMLODIPINE (HIGH BLOOD PRESSURE MEDICATIONS) TRAMADOL NEEDED FOR PAIN NOT BETTER WITH TYLENOL. documented in this encounterBluffton Hospital06-25-2025 NoteHNO ID: [id number] Author: AMOS FLOYD MD Service: ? Author Type: Physician Type: Progress Notes Filed: 08/15/2024 07:19 Note Text: This note was created using [employer]. Subjective Patient presents with: Hospital F/U Linda Peralta is a 79 year old female here with her daughter. She had a heart catheterization 08/05/24 showing minimal CAD and severe . She was being referred for TAVR to a specialist in [facility]. She developed weakness 08/07/24 and was found to be bradycardic and hypotensive. She was admitted with concerns for UTI, urosepsis, non STEMI, and Lares's. She was treated with IV fluids, antibiotic for Klebsiella aerogenes UTI, and IV hydrocortisone. She was noted to have edema and found to have acute DVT, in the setting of recent holding of terminal makeup operator warfarin for the heart cath. She was [...] recommended due to hypot (more content not included)...[facility]06-25-2025 History of Present illness Narrative* Amos Floyd MD - 08/14/2024 11:39 AM EDT This note was created using ERLinkter. Subjective Patient presents with: [facility] F/U Linda Peralta is a 79 year old female here with her daughter. She had a heart catheterization 08/05/24 showing minimal CAD and severe . She was being referred for TAVR to a specialist in [facility]. She developed weakness 08/07/24 and was found to be bradycardic and hypotensive. She was admitted with concerns for UTI, urosepsis, non STEMI, and Lares's. She was treated with IV fluids, antibiotic for Klebsiella aerogenes UTI, and IV hydrocortisone. She was noted to have edema and found to have acute DVT, in the setting of recent holding of terminal makeup operator warfarin for the heart cath. She was [...] I35.0 - [facility] 5. Acute cystitis without hematuria - ICD9: 595.0, ICD10: N30.00 Recheck. - UA DIP, URINE (POC) - BACTERIAL CULTURE, URINE Amos Floyd MD documented in this encounterBluffton Hospital06-20-2025 Discharge summary [facility] Medical Records Department [address] [place] [address] Discharge Summary 08/09/24 1437 MR#: [id number] Acct: [id number] Name: LINDA PERALTA Rep #:[id number] : 1945 79 From: Jairo Mitchell DO PCP: Dr. Amos Floyd MD Status:A DM IN [facility] Prov[facility] Date of Admission: 08/07/24 [...] mg/mL subcutaneous syringe (Prolia) 60 mg subcut [id number] #1 mL 11/24/22 nitroglycerin 0.4 mg sublingual [...] 81.0 H, Lymph % (Auto) 7.4 L, [place] % (Auto) 9.5, Eos % (Auto) 0.2, [...] to being on chronic steroids with your Lares'sdisease and you will be on a prednisone [...] Prolia 60 mg/mL syringe 60 mg subcut [id number] Qty: 1 1RF nitroglycerin 0.4 mg tablet, [...] Self Care Charges/Coding Visit Charges Inpatient E&M: 98689 Disch Hosp >30min 08/09/24 9153 Cosigner Signature (if applicable): CC: Dr. Jairo Mitchell DO; Dr. Amos Floyd MD~ Signed [facility]06-20-2025 [facility] Medical Records Department [address] [place] [address] Discharge Summary 08/09/24 1437 MR#: [id number] Acct: [id number] Name: LINDA PERALTA Rep #: [id number] : 1945 79 From: Jairo Mitchell DO PCP: Dr. Amos Floyd MD Status:ADM IN Location: [place] [address] Providers Date of Admission: 08/07/24 Primary Care [...] mg/mL subcutaneous syringe (Prolia) 60 mg subcut [id number] #1 mL 11/24/22 nitroglycerin 0.4 mg sublingual [...] adrenal insufficiency due to patient is known Lares's disease on chronic hydrocortisone having urinary tract [...] 81.0 H, Lymph % (Auto) 7.4 L, [place] % (Auto) 9.5, Eos % (Auto) 0.2, [...] Calcium 8.5 Microbiology: Microbi (more content not included)...[facility]06-19-2025 Progress note Author Ted Toro [facility] Note Date/Time August 08, 2024 10:4 6am [facility] Medical Records Department [address] [place] [address] Progress Note - Hospitalist 08/08/24 1028 MR#: [id number] Acct: [id number] Name: LINDA PERALTA Rep #:[id number] : 1945 79 From: Ted charles MD PCP: Dr. Amos Floyd MD Status:A DM IN Location: [place] [address] Subjective Subjective doing well, feels better than [...] 71.7 H, Lymph % (Auto) 15.0 L, [place] % (Auto) 9.7, Eos % (Auto) 1.1, [...] Urine ClarityClear, Urine pH 6.0, Ur Specific [place] 1.015, Urine Protein 30 H, Urine Glucose [...] consult for management. Colonic diverticulosis. Reading Location: [place] [address] Physical Exam Narrative General: Alert, Oriented x3, [...] Therapeutic Lovenox Charges/Coding Visit Charges Inpatient E&M: 50433 Subs Hosp L2 08/08/24 1046 <Electronically signed by Ted Toro MD> Cosigner Signature (if applicable): CC: ~ Signed [facility] Work Phone: 1(761) 784-128406-19-2025 Progress note [facility] Medical Records Department [address] [place] [address] Progress Note - Hospitalist 08/08/24 1028 MR#: [id number] Acct: [id number] Name: LINDA PERALTA Rep #:[id number] : 1945 79 From: Ted charles MD PCP: Dr. Amos Floyd MD Status:A DM IN Location: [place] [address] Subjective Subjective doing well, feels better than [...] 71.7 H, Lymph % (Auto) 15.0 L, [place] % (Auto) 9.7, Eos % (Auto) 1.1, [...] Urine ClarityClear, Urine pH 6.0, Ur Specific [place] 1.015, Urine Protein 30 H, Urine Glucose [...] consult for management. Colonic diverticulosis. 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 She did not have sepsis on admission based on insurance criteria ? Continue with Rocephin ? 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 [...] Therapeutic Lovenox Charges/Coding Visit Charges Inpatient E&M: 09909 Subs Hosp L2 08/08/24 1046 Cosigner Signature (if applicable): CC: ~ Signed [facility]06-19-2025 History and physical note Author Nixon [facility] Note Date/Time August 08, 2024 6:55 am [facility] Medical Records Department [address] [facility] [place] [address] H&P Exam - Hospitalist 08/07/241930 MR#: [id number] Acct: [id number] Name: LINDA PERALTA Rep #:[id number] : 1945 79 From: Nixon Sanchez DO [...] LVEF ~60% and mild luminal irregularities with hhzybjak-xr-kgejht plus grade II mitral valve insufficiency who presents to [facility] ER complaining of hypotension and bradycardia. Ms. [...] is expected to extend beyond 2 midnights. [facility] Medical History MVP (mitral valve prolapse) Aortic stenosis Hypokalemia Elevated serum creatinine Acute prerenal azotemia History of kidney cancer Chronic kidney disease Hypercalcemia Frequent falls Closed head injury (03/20/20) Hypoglycemia (03/20/20) Acute electrocardiogram changes Atopic dermatitis Osteopenia determined by x-ray History of pulmonary embolism jail (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 Orthostatic hypotension Chronic [...] denosumab 60 mg/mL subcutaneous 60 mg subcut [id number] #1 mL 11/24/22 Unknown Rx syringe (Prolia) [...] Other History of DVT (deep vein thrombosis) jail (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 Surgical History History [...] safe at home: Yes additional social history: [place]- Retired patient is retired ROS ROS Narrative [...] 71.7 H, Lymph % (Auto) 15.0 L, [place] % (Auto) 9.7, Eos % (Auto) 1.1, [...] Urine ClarityClear, Urine pH 6.0, Ur Specific [place] 1.015, Urine Protein 30 H, Urine Glucose (UA) Normal, Urine Ketones Negative, Urine Occult Blood 150 H, Urine Nitrite Positive H, Urine Bilirubin Negative, Urine Urobilinogen Normal, Ur Leukocyte Esterase 25 H, Urine RBC 0-5 SEEN, Urine WBC 5-10 SEEN, Ur Squamous Epith Cells 0 SEEN, Urine Bacteria 3+, Urine Mucus 0 SEEN Imaging [facility] Imaging Services [address] [place] [address] Abdomen/Pelvis without Cont MR#: [id number] Acct: [id number] Name: LINDA PERALTA Rep #: [id number] : 1945 F 79 From: Omar Carrillo MD PCP: Dr. Amos Floyd MD Status: ADM IN Study: Abdomen/Pelvis without Cont Date of Exam: 08/07/24 Exam# [id number] Ordering Dr: Nixon Silverio DO PROCEDURE: ABDOMEN/PELVIS [...] consult for management. Colonic diverticulosis. Reading Location: [id number] CC: Dr. Nixon Silverio DO; Dr. 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 Continue IV ceftriaxone begun in the ER and await culture and sensitivity data. Serialize lactate with level yet to be obtained. Give promethazine prn nausea and vomiting. Give acetaminophen prn for zdig-le-lgtmiloj (level 1- 5/10) pain or fever. Give [...] LVEF ~60% and mild luminal irregularities with nqzroury-ay-tuuaeh plus grade II mitral valve insufficiency with MVP - We will consult [facility] to see patient thisadmission for [...] responsive hypotension Charges/Coding Visit Charges Inpatient E&M: 23812 Init Hosp L3 08/08/24 0655 <Electronically signed by Nixon Silverio DO> Cosigner Signature (if applicable): CC: Dr. Nixon Silverio DO; Dr. Amos Floyd MD~ Signed [facility] Work Phone: 1(476) 715-756306-19-2025 History and physical note [facility] Medical Records Department [address] [place] [address] H&P Exam - Hospitalist 08/07/241930 MR#: [id number] Acct: [id number] Name: LINDA PERALTA Rep #:[id number] : 1945 79 From: Nixon Sanchez DO [...] LVEF ~60% and mild luminal irregularities with broqiqlx-ru-fnefdp plus grade II mitral valve insufficiency who presents to [facility] ER complaining of hypotension and bradycardia. Ms. [...] that is expected to extend beyond 2midnights. 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 Orthostatic hypotension Chronic [...] denosumab 60 mg/mL subcutaneous 60 mg subcut [id number] #1 mL 11/24/22 Unknown Rx syringe (Prolia) [...] Other History of DVT (deep vein thrombosis) 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 Surgical History History [...] safe at home: Yes additional social history: [place]- Retired patient is retired ROS ROS Narrative [...] 71.7 H, Lymph % (Auto) 15.0 L, [place] % (Auto) 9.7, Eos % (Auto) 1.1, [...] Urine ClarityClear, Urine pH 6.0, Ur Specific [place] 1.015, Urine Protein 30 H, Urine Glucose (UA) Normal, Urine Ketones Negative, Urine Occult Blood 150 H, Urine Nitrite Positive H, Urine Bilirubin Negative, Urine Urobilinogen Normal, Ur Leukocyte Esterase 25 H, Urine RBC 0-5 SEEN, Urine WBC 5-10 SEEN, Ur Squamous Epith Cells 0 SEEN, Urine Bacteria 3+, Urine Mucus 0 SEEN Imaging [facility] Imaging Services [address] [place] [address] Abdomen/Pelvis without Cont MR#: [id number] Acct: [id number] Name: LINDA PERALTA Rep #: [id number] : 1945 F 79 From: Omar Carrillo MD PCP: Dr. Amos Floyd MD Status: ADM IN Study: Abdomen/Pelvis without Cont Date of Exam: 08/07/24 Exam# [id number] Ordering Dr: Nixon Silverio DO PROCEDURE: ABDOMEN/PELVIS [...] consult for management. Colonic diverticulosis. Reading Location: [id number] CC: Dr. Nixon Silverio DO; Dr. Amos Floyd MD ~ Baster Hand: Signed Assessment & Plan Assessment/Plan (1) Acute [...] prn nausea and vomiting. Give acetaminophen prnfor rqlc-lq-dryldsbn (level 1-5/10) pain or fever. Give morphine [...] LVEF ~60% and mild luminal irregularities with zogebxsq-mu-kvaqvo plus grade II mitral valve insufficiency with MVP - We will consult [facility] to see patient thisadmission for [...] responsive hypotension Charges/Coding Visit Charges Inpatient E&M: 74930 Init Hosp 08/08/24 0686 Cosigner Signature (if applicable): CC: Dr. Nixon Silverio DO; Dr. Amos Floyd MD~ Signed [facility]06-18-2025 Radiology Diagnostic study note [facility] Imaging Services [address] [place], [place] [id number] Abdomen/Pelvis without Cont MR#: [id number] Acct: [id number] Name: LINDA PERALTA Rep #: [id number] : 1945 F 79 From: Oleg Carrillo MD PCP: Dr. Amos Floyd MD Status: A DM IN Study:Abdomen/Pelvis without Cont Date of Exa m: 08/07/24 Exam# [id number] Ordering Dr: Nixon Villareal DO PROCEDURE: ABDOMEN/PELVIS [...] consult for management. Colonic diverticulosis. Reading Location: [id number] CC: Dr. Nixon Silverio DO; Dr. Amos Floyd MD ~ Baster Hand: Signed [facility]06-18-2025 Discharge summary Author Obinna Uday [facility] Note Date/Time August 07, 2024 7:39 pm [facility] Medical Records Department [address] [place] [address] Emergency Department Summary 08/07/24 MR#: [id number] Acct: [id number] Name: LINDA PERALTA Rep #:[id number] : 1945 79 From: Obinna Frye MD [...] Illness/Hospitalization: Yes (Cardiac catheterization earlier this week) [facility] Medical History MVP (mitral valve prolapse) Aortic stenosis Hypokalemia Elevated serum creatinine Acute prerenal azotemia History of kidney cancer Chronic kidney disease Hypercalcemia Frequent falls Closed head injury (03/20/20) Hypoglycemia (03/20/20) Acute electrocardiogram changes Atopic dermatitis Osteopenia determined by x-ray History of pulmonary embolism 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 Second liter was ordered. 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 Will give [...] 71.7 H Lymph % (Auto) 15.0 L [place] % (Auto) 9.7 Eos % (Auto) 1.1 [...] Clarity Clear Urine pH 6.0 Ur Specific Union 1.015 Urine Protein 30 H Urine Glucose [...] follows: Interpretation: Sinus Tachycardia (Rate is 116. ID interval is 130 ms perQRS duration 80 ms. QT duration. 14 ms. [place] is normal. Patient has evidenceof atrial enlargement. There is also evidence of LVH. There is no acute ischemic changes.) Management Discussion w/another healthcare provider: Hospitalist and Chief Catalyst Operator (Her food assembler kitchen was contacted since he sent her in.) [...] independent rotation laboratory results), Discussing w/Patient &/or Family/Flyer Maker, Discussing w/Consultants (Dr. 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 Call [facility] ([phone]) or report to the closest Emergency Room. Call 911 if necessary. 08/07/241938 <Electronically signed by Obinna Frye MD> Cosigner Signature (if applicable): CC: Dr. Amos Floyd MD ~ Signed [facility] Work Phone: 1(311) 781-256306-18-2025 Discharge summary [facility] Medical Records Department [address] [place] [address] Emergency Department Summary 08/07/24 MR#: [id number] Acct: [id number] Name: LINDA PERALTA Rep #:[id number] : 1945 79 From: Obinna Frye MD [...] Illness/Hospitalization: Yes (Cardiac catheterization earlier this week) [facility] Medical History MVP (mitral valve prolapse) Aortic stenosis Hypokalemia Elevated serum creatinine Acute prerenal azotemia History of kidney cancer Chronic kidney disease Hypercalcemia Frequent falls Closed head injury (03/20/20) Hypoglycemia (03/20/20) Acute electrocardiogram changes Atopic dermatitis Osteopenia determined by x-ray History of pulmonary embolism jail (current) use of anticoagulants Orthostatic hypotension Chronic [...] denosumab 60 mg/mL subcutaneous 60 mg subcut [id number] #1 mL 11/24/22 Unknown Rx syringe (Prolia) [...] Other History of DVT (deep vein thrombosis) 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 Second liter was ordered. 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 Will give [...] 71.7 H Lymph % (Auto) 15.0 L [place] % (Auto) 9.7 Eos % (Auto) 1.1 [...] Clarity Clear Urine pH 6.0 Ur Specific Union 1.015 Urine Protein 30 H Urine Glucose [...] follows: Interpretation: Sinus Tachycardia (Rate is 116. ID interval is 130 ms perQRS duration 80 ms. QT duration. 14 ms. [place] is normal. Patient has evidenceof atrial enlargement. There is also evidence of LVH. There is no acute ischemic changes.) Management Discussion w/another healthcare provider: Hospitalist and Chief Catalyst Operator (Her food assembler kitchen was contacted since he sent her in.) [...] independent rotation laboratory results), Discussing w/Patient &/or Family/Flyer Maker, Discussing w/Consultants (Dr. 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 Call [facility] ([phone]) or report tothe closest Emergency Room. Call 911 if necessary. 08/07/241938 Cosigner Signature (if applicable): CC: Dr. Amos Floyd MD ~ Signed [facility]06-04-2025 NoteHNO ID: [id number] Author: AMOS FLOYD MD Service: ? Author Type: Physician Type: Progress Notes Filed: 07/24/2024 12:45 Note Text: This note was created using ERLinkter. Subjective Linda Peralta is a 79 year old female. Recording using [employer] software for draft documentation of the visit was discussed with the patient/authorized farm loan representative; all questions welcomed and answered. Patient/authorized farm loan representative agreed to proceed Heart Murmur: - [...] on it years ago (more content not included)...[facility]06-04-2025 History of Present illness Narrative* Amos Floyd MD - 07/24/2024 11:28 AM EDT This note was created using [employer]. Subjective Linda Peralta is a 79 year old female. Recording using [employer] software for draft documentation of the visit was discussed with the patient/authorized farm loan representative; all questions welcomed and answered. Patient/authorized farm loan representative agreed to proceed Heart Murmur: - [...] in diameter incidentally noted on imaging study, [facility]. Social History Tobacco Use Smoking status: Never [...] ICD10: E27.40 Stable, and monitored by her political aide. - HYDROCORTISONE 10 MG TABLET 8. Encounter for immunization - ICD9: V03.89, ICD10: Z23 - PFIZER-BIONTECH COVID-19 VACCINE AGE 12+ YR (COMIRNATY) Amos Floyd MD documented [facility]Bl[facility] Radiology Diagnostic study note [facility] Imaging Services [address] [place], [place] [address] Chest PA and Lateral MR#: [id number] Acct: [id number] Name: LINDA PERALTA Rep #: [id number] : 1945 F 79 From: Bobbi Parada MD PCP: Dr. Amos Floyd MD Status: P RE NEC Study:Chest PA and Lateral Date of Exam: 07/23/24 Exam# [id number] Ordering Dr: Heaven Bolton MANAGER LIFE SCIENCES MANAGER LIFE SCIENCES-C PROCEDURE: CHEST PA AND LATERAL 07/23/2024 REASON [...] pulmonary vascular congestion. Mild cardiomegaly. Reading Location: [id number] CC: MANAGER LIFE SCIENCES-C Heaven Bolton; Dr. 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 inactive July 23, [...] 3 inac tive August 07, 2024 8:16pm jail (current) use of anticoagulants inactive August 07, 2024 8:16pm MVP (mitral valve prolapse) inactive August 07, 2024 8:16pm Overweight (BMI 25.0-29.9) inactive August 07, 2024 8:16pm [facility] Work Phone: 1(948) 694-646706-03-2025 Evaluation note* Diagnosis Onset Date Resolution Status Admit Date Aortic stenosis acute July 23, 2024 8:33am Essential (primary) hypertension chronic July 23, 2024 8:33am Hyperlipidemia chronic July 23, 2024 8:33am History of non-ST elevation myocardial infarction (NSTEMI) April, resolved July 23 8:33am Chronic kidney disease, stage 3 inactive July 23, 2024 8:33am 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 Service: ? Author Type: LICENSED NURSE Type: Progress Notes Filed: 07/10/2024 09:03 Note Text: Patient presents for Prolia injection. Denies any problems at this time. Patient instructed on any SE of medication, verbalized understanding and agreed to proceed with treatment. Tolerated injection well. Desirae Arzola [facility]04-30-2025 NoteHNO ID: [id number] Author: MARK LEE CPhT Service: ? Author Type: Type Mapper Type: Progress Notes Filed: 06/19/2024 15:00 Note [...] to be addressed Mark Lee CPhT Value [facility]04-[facility] History of Present illness Narrative* Mark [...] concerns to be addressed Mark Lee CPhT [facility] Care Pharmacy Team documented in this encounterBluffton Hospital04-30-2025 NotePatient Outreach (PHPOHE) LINDA PERALTA ([id number]) 1945 F Date Time Provider Department 06/19/24 [...] concerns to be addressed Mark Lee CPhT [facility] Pharmacy Team Allergies As of Date: 06/19/2024 [...] [I25.10] 04/25/2009 DVT (deep venous thrombosis) ([facility]) [I82.409] 03/23/2012 01/23/2024 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 [...] Status:Closed by SIMON LEE (more content not included)...[facility]04-28-2025 NoteHNO ID: [id number] Author: MARK LEE CPhT Service: ? Author Type: Type Mapper Type: Progress Notes Filed: 06/17/2024 10:08 Note [...] call What was primary intervention? No intervention Makr Lee CPhT [facility]Bl[facility]04-28-2025 NotePatient Outreach (PHPOHE) CORINNA Hermes ([id number]) 1945 F Date Time Provider Department 06/17/24 AMOS FLOYD PHPOHE During your visit today, we recorded the following information about you: Mark Lee CPhT 06/17/2024 10:08 AM Signed Patient is identified through a medication adherence outreach initiative based on pharmacy claims data from: [facility] Medication Adherence Category: Statins First Review [...] [I25.10] 04/25/2009 DVT (deep venous thrombosis) ([facility]) [I82.409] 03/23/2012 01/23/2024 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 [...] in*02/22/2024 Encounter Status:Closed by MARK LEE on 06/17/24[facility] 05-14-2024 NoteHNO ID: [id number] Author: NAKIA BURK CPhT Service: ? Author Type: Type Mapper Type: Progress Notes Filed: 05/14/2024 14:05 Note [...] Nakia Burk CPhT [facility]Bl[facility]03-25-2025 History of Present illness Narrative* Nakia [...] Based Care Pharmacy Team documented in this encounterBluffton Hospital03-25-2025 NotePatient Outreach (PHPOHE) LINDA PERALTA ([id number]) 1945 F Date Time Provider Department 05/14/24 AMOS FLOYD PHPOHE During your visit today, we recorded the following information about you: Nakia Burk CPhT 05/14/2024 2:05 PM Signed Patient is identified through a medication adherence outreach initiative based [facility] Medication Adherence Category: Hypertension First Review Attribution [...] concerns to be addressed Nakia Burk CPhT [facility] Pharmacy Team Allergies As of Date: 05/14/2024 [...] [I25.10] 04/25/2009 DVT (deep venous thrombosis) ([facility]) [I82.409] 03/23/2012 01/23/2024 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 [...] in*02/22/2024 Encounter Status:Closed by NAKIA BURK on 05/14/24[facility] 04-29-2024 Evaluation note* Diagnosis Onset Date Resolution Status Admit Date Aortic stenosis acute April 10:53am jail (current) use of anticoagulants acute April 29, 2024 10:53am MVP (mitral valve prolapse) acute April 29, 2024 10:53am Chronic kidney disease, stage 3 synchronizer mg April 29, 2024 10:53am Essential (primary) hypertension chronic April 29, 2024 10:53am Hyperlipidemia chronic April 10:53am History of non-ST elevation myocardial infarction (NSTEMI) April, resolved M [facility] 2024 10:53am [facility] Work Phone: 1(916) 877-728903-10-2025 Evaluation note* Diagnosis Onset Date Resolution Status Admit Date Aortic stenosis acute April 10:53am jail (current) use of anticoagulants acute April 29, 2024 10:53am MVP (mitral valve prolapse) acute April 29, 2024 10:53am Chronic kidney disease, stage 3 synchronizer mg April 29, 2024 10:53am Essential (primary) hypertension chronic April 29, 2024 10:53am Hyperlipidemia chronic April 10:53am History of non-ST elevation myocardial infarction (NSTEMI) April, resolved M [facility] 2024 10:53am Severe aortic stenosis acute 2024 8:33am [facility] Work Phone: 1(518) 621-326503-10-2025 Evaluation note* Diagnosis Onset Date Resolution Status Admit Date Aortic stenosis acute April 10:53am jail (current) use of anticoagulants acute April 29, 2024 10:53am MVP (mitral valve prolapse) acute April 29, 2024 10:53am Chronic kidney disease, stage 3 synchronizer mg April 29, 2024 10:53am Essential (primary) hypertension chronic April 29, 2024 10:53am Hyperlipidemia chronic April 10:53am History of non-ST elevation myocardial infarction (NSTEMI) April, resolved M [facility] 2024 10:53am Aortic stenosis acute July 23, 2024 8:33am jail (current) use of anticoagulants acute July 23, 2024 8 :33am MVP (mitral valve prolapse) acute July 23, 2024 8:33am Chronic kidney disease, stage 3 synchronizer mg July 23, 2024 8:33am Essential (primary) hypertension chronic July 23, 2024 8 :33am Hyperlipidemia chronic July 23, 2024 8:33am History of non-ST elevation myocardial infarction (NSTEMI) April, resolved J [facility] 2024 8:33am [facility] Work Phone: 1([phone]) 769-710603-10-2025 Evaluation note* Diagnosis Onset Date Resolution Status Admit Date Aortic stenosis acute April 10:53am jail (current) use of anticoagulants acute April 29, 2024 10:53am MVP (mitral valve prolapse) acute April 29, 2024 10:53am Chronic kidney disease, stage 3 synchronizer mg April 29, 2024 10:53am Essential (primary) hypertension chronic April 29, 2024 10:53am Hyperlipidemia chronic April 10:53am History of non-ST elevation myocardial infarction (NSTEMI) April, resolved M [facility] 2024 10:53am Aortic stenosis acute July 23, 2024 8:33am jail (current) use of anticoagulants acute July 23, 2024 8 :33am MVP (mitral valve prolapse) acute July 23, 2024 8:33am Chronic kidney disease, stage 3 synchronizer mg July 23, 2024 8:33am Essential (primary) hypertension chronic July 23, 2024 8 :33am Hyperlipidemia chronic July 23, 2024 8:33am History of non-ST elevation myocardial infarction (NSTEMI) April, resolved J [facility] 2024 8:33am Acute cystitis without hematuria acute August 07, 2024 8:16pm Acute hypotension acute August 072024 8:16pm 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 8:16pm Aortic stenosis acute July 8:16pm Aortic stenosis, severe acute J [facility] 2024 8:16pm Complicated urinary tract infection acute August 07, 2024 8:16pm Dark stools acute August 07 8:16pm Dehydration acute August 07 8:16pm Elevated troponin acute August 072024 8:16pm Leukocytosis acute August 07, 2 025 8:16pm 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 acute August 07, 2024 8:16pm Metabolic acidosis acute July 212024 8:16pm MVP (mitral valve prolapse) acute August 07, 2024 8:16pm Overweight (BMI 25.0-29.9) acute August 07, 2024 8:16pm Sepsis acute August 07 8:16pm Chronic kidney disease, stage 3 synchronizer mg August 07, 2024 8:16pm [facility] Work Phone: 1(562) 211-491303-10-2025 Evaluation note* Diagnosis Onset Date Resolution Status Admit Date Aortic stenosis acute April 10:53am jail (current) use of anticoagulants acute April 29, 2024 10:53am MVP (mitral valve prolapse) acute April 29, 2024 10:53am Chronic kidney disease, stage 3 synchronizer mg April 29, 2024 10:53am Essential (primary) hypertension chronic April 29, 2024 10:53am Hyperlipidemia chronic April 10:53am History of non-ST elevation myocardial infarction (NSTEMI) April, resolved [facility] 2024 10:53am Aortic stenosis acute July 23, 2024 8:33am 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 acute July 23, 2024 8 :33am MVP (mitral valve prolapse) acute July 23, 2024 8:33am Chronic kidney disease, stage 3 synchronizer mg July 23, 2024 8:33am Essential (primary) hypertension chronic July 23, 2024 8 :33am Hyperlipidemia chronic July 23, 2024 8:33am History of non-ST elevation myocardial infarction (NSTEMI) April, resolved J [facility] 2024 8:33am Acute cystitis without hematuria acute August 07, 2024 8:16pm Acute hypotension acute August 072024 8:16pm 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 8:16pm Aortic stenosis acute July 8:16pm Aortic stenosis, severe acute J [facility] 2024 8:16pm Bradycardia acute August 07 8:16pm Complicated urinary tract infection acute August 07, 2024 8:16pm Dark stools acute August 07 8:16pm Dehydration acute August 07 8:16pm Elevated troponin acute August 072024 8:16pm Leukocytosis acute August 07, 2 025 8:16pm 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 Author Type: Corporate Giving Manager Type: Progress Notes Filed: 04/05/2024 15:22 Note [...] or unnecessary to reach patient: Left message FIMBexhart message sent Navigation Signature: Del Saravia MA April 05, 2024 3:11 [facility]02-14-2025 History of Present illness Narrative* Del [...] or unnecessary to reach patient: Left message [email or web address] message sent Navigation Signature: Del Saravia MA April 05, 2024 3:11 PM documented in this encounterBluff[facility]02-14-[facility]25 NotePatient Outreach (NETNAV) LINDA PERALTA ([id number]) 1945 F Date Time Provider Department 04/05/24 DEL SARAVIA During your visit today, we recorded the following information about you: Del Saravia MA 04/05/2024 3:22 PM Signed POPULATION HEALTH NAVIGATION OUTREACH Action/FYI - [employer] High Risk - 1st attempt Next office visit: 07/24/24 - 6 mo follow up Last AWV; 01/23/24 No Health Maintenance Voicemail message left and Arts & Analyticshart message sent offering to assist in scheduling [...] [I25.10] 04/25/2009 DVT (deep venous thrombosis) ([facility]) [I82.409] 03/23/2012 01/23/2024 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 [...] in*02/22/2024 Encounter Status:Closed by DEL SARAVIA on 04/05/24[facility] 02-[facility] Telephone encounter Note* Telephone Encounter - Carlos Roe RN - 02/22/2024 9:13 AM EST Pt called and is notified of results and given providers message. Pt voices understanding. States her Computer Field Technician is Dr. Alexander Gregory in [place]. 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 Will fax this msg and CT scan report to his office. [facility]01-02-2025 Miscellaneous Notes* Telephone Encounter - Carlos Roe RN - 02/22/2024 9:13 AM EST Pt called and is notified of results and given providers message. Pt voices understanding. States her Computer Field Technician is Dr. Alexander Gregory in [place]. 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 Will fax this msg and CT scan report to his office. * Telephone Encounter - Carlos Roe RN - 02/22/2024 9:09 AM EST ----- Message from Amos Floyd MD sent at 02/22/2024 12:42 AM EST ----- Nodule on chest xray is a healed rib fracture. What needs follow up is a 1.1 cm nodule of her rightthyroid. She should have her political aide follow up on this at her next routine appointment. documented in this encounterBluffton Hospital01-02-2025 Telephone encounter Note * Telephone Encounter - Carlos Roe RN - 02/22/2024 9:09 AM EST ----- Message from Amos Floyd MD sent at 02/22/2024 12:42 AM EST ----- Nodule on chest xray is a healed rib fracture. What needs follow up is a 1.1 cm nodule of her rightthyroid. She should have her political aide follow up on this at her next routine appointment. [facility]12-12-2024 History of Present illness Narrative* Gisela [...] PATIENT PRESENTS WITH AN IMPLANTABLE OR ATTACHED AUTOMATIC BLOCKER: No RADIOLOGY DEPARTMENT: CT; Exam(s) Completed: Chest PERIPHERAL IV DATA: Not applicable SIGNED BY: GENNA Higgins February 01, 2024 11:10 AM documented in this encounterBluffton Hospital12-12-2024 NoteHNO ID: [id number] Author: GISELA BAIRD CT Service: Radiology Author Type: Vb Developer Type: Progress Notes Filed: 02/01/2024 11:10 Note [...] PATIENT PRESENTS WITH AN IMPLANTABLE OR ATTACHED AUTOMATIC BLOCKER: No RADIOLOGY DEPARTMENT: CT; Exam(s) Completed: Chest PERIPHERAL IV DATA: Not applicable SIGNED BY: GENNA Higgins February 01, 2024 11:10 [facility]12-03-2024 Instructions* Patient Instructions* Amos Floyd MD - [...] review all the medicines you take, even kgqi-hja-fceofah medicines. As you get older, the way [...] have certain medical conditions. documented in this encounterBluffton Hospital12-03-2024 NoteHNO ID: [id number] Author: AMOS FLOYD MD Service: ? Author Type: Physician Type: Progress Notes Filed: 01/23/2024 14:09 Note Text: This note was created using SoNetJob. Subjective Linda Peralta is a 78 year [...] 39 Stable - Couns (more content not included)...[facility]12-03-2024 History of Present illness Narrative* Amos Floyd MD - 01/23/2024 10:34 AM EST This note was created using [employer]. Subjective Linda Peralta is a 78 year [...] immunization - ICD9: V03.89, ICD10: Z23 - [employer] COVID-19 VACCINE AGE 12+ YR (COMIRNATY) - [...] - General Outside specialists seen: Cardiology-Dr. Ortega [facility] Nephrology- Dr. Jennifer Tarango Commercial Loan Reviewer- Dr. Isreal Carpio Endocrinology- Dr. Alexander Gregory. [...] interested in routine screening. documented in this encounterBluffton Hospital12-03-2024 NoteHNO ID: [id number] Author: AMOS FLOYD MD Service: ? Author [...] - General Outside specialists seen: Cardiology-Dr. Ortega [facility] Nephrology- Dr. Jennifer Tarango Commercial Loan Reviewer- Dr. Isreal Carpio Endocrinology- Dr. Alexander Gregory. [...] she was no longer interested in routine screening.[facility]11-29-[facility] Telephone encounter Note* Telephone Encounter - Kelley Rivera LPN - 01/19/2024 3:49 PM EST Called pt and reviewed. She says cardiology wanted chest CT repeated next year. She has appt with pcp 01/23/24 she will review then to see when this needs repeated. [facility]11-29-2024 Miscellaneous Notes* Telephone Encounter - Kelley [...] support you in caring for your patient. [facility] is committed to providing safe care [...] to the appropriate caregiver. documented in this encounterBluffton Hospital11-29-2024 Telephone encounter Note * Telephone Encounter [...] support you in caring for your patient. [facility] is committed to providing safe care [...] we can redirect to the appropriate caregiver. [facility]11-25-2024 NoteHNO ID: [id number] Author: AMOS FLOYD MD Service: ? Author Type: Physician Type: Progress Notes Filed: 01/15/2024 18:51 Note Text: ASSESSMENT/PLAN: 1. Nodule of lower lobe of right lung needing follor up CT - ICD9: 793.11, ICD10: R91.1 - CT CHEST WO IVCLAURA Floyd [facility]11-25-2024 History of Present illness Narrative* Amos Floyd MD - 01/15/2024 6:50 PM EST ASSESSMENT/PLAN: 1. Nodule of lower lobe of right lung needing follor up CT - ICD9: 793.11, ICD10: R91.1 - CT CHEST WO SHEILA Floyd MD documented in this encounterBluffton Hospital11-21-2024 NoteHNO ID: [id number] Author: DESIRAE ARZOLA LPN Service: ? Author Type: LICENSED NURSE Type: Progress Notes Filed: 01/11/2024 13:42 Note Text: Patient presents for Prolia injection. Denies any problems at this time. Patient instructed on any SE of medication, verbalized understanding and agreed to proceed with treatment. Tolerated injection well. Desirae Arzola [facility] History of Present illness Narrative* Desirae Arzola LPN - 01/11/2024 1:41 PM EST Patient presents for Prolia injection. Denies any problems at this time. Patient instructed on any SE of medication, verbalized understanding and agreed to proceed with treatment. Tolerated injectionwell. Desirae Arzola LPN documented in this encounterBluffton Hospital11-11-2024 History of Present illness Narrative* Marguerite [...] PATIENT PRESENTS WITH AN IMPLANTABLE OR ATTACHED AUTOMATIC BLOCKER: No RADIOLOGY DEPARTMENT: General X-ray: Exam(s) Completed: Chest X-Ray PERIPHERAL IV DATA: Not applicable SIGNED BY: RT Doug(R) January 01, 2024 1:40 PM documented in this encounterBluffton Hospital11-11-2024 NoteHNO ID: [id number] Author: MARGUERITE WALLER RT(R) Service: Radiology Author [...] PATIENT PRESENTS WITH AN IMPLANTABLE OR ATTACHED AUTOMATIC BLOCKER: No RADIOLOGY DEPARTMENT: General X-ray: Exam(s) Completed: Chest X-Ray PERIPHERAL IV DATA: Not applicable SIGNED BY: RT Doug(R) January 01, 2024 1:40 [facility]11-08-2024 History of Present illness Narrative* Javier Abbott PA-C - 12/29/2023 9:30 AM EST Images from the original note were not included. [facility] PATIENT NAME: Linda [...] had X-ray a few weeks before at [facility] and we don't have the [...] W/COLLJ SPEC WHEN PFRMD 03/26/2010 Inpatient at [facility] ESOPHAGOGASTRODUODENOSCOPY TRANSORAL DIAGNOSTIC 02/2002 EGD ESOPHAGOGASTRODUODENOSCOPY [...] Department Center 01/11/2024 2:00 PM [facility]/23/2024 9:40 AM Amos Floyd MD [facility] Follow-up Plan Additional exams needed for this [...] no, patient declined? No documented in this encounterBluffton Hospital11-08-2024 NoteHNO ID: [id number] Author: JAVIER ABBOTT PA-C Service: ? Author Type: Physician Supervisor Floor Assembly Type: Progress Notes Filed: 03/28/2024 16:18 Note Text: [facility] PATIENT NAME: Linda Peralta PRIMARY CARE PHYSICIAN: Amos Floyd MD CHIEF COMPLAINT: Abnormal finding of diagnostic imaging INITIAL VISIT: Yes Patient seen on Audio Only Visit platform. Location of patient: [place] I have communicated my name and active licensure. The patient's identity and physical location were verified at the time of this visit. Either the patient or their legal farm loan representative has been informed of the risks [...] had X-ray a few weeks before at [facility] and we don't have the [...] eczema, due to unspecified cause 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Lares's disease Cystocele, midline 07/23/2007 Diverticulosis of colon (without mention of hemorrhage) DVT (deep venous thrombosis) ([facility]) 03/23/2012 DVT of lower extremity (deep venous thrombosis) ([facility]) 03/27/2009 Esophageal reflux Gallstones 03/06/2016 Hypercalcemia 03/19/2009 Hypertension Nonrheumatic aortic valve stenosis 06/30/2023 NSTEMI (non-ST elevated myocardial infarction) ([facility]) 04/27/2009 Cardiac cath normal 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 11/13/2013 Alendronate (Fosamax) start: 03/09/2017-03/09/2022 Other adrenal hypofunction PMH - PAST MEDICAL HISTORY OF Left kidney donated Psoriasis and similar disorder Pure hypercholesterolemia 02/17/2015 Right renal mass 03/27/2009 Stage 3b chronic kidney disease ([facility]) 07/29/2020 Syncope Tonic pupillary reaction Unspecified disorder [...] W/COLLJ SPEC WHEN PFRMD 03/26/2010 Inpatient at [facility] ESOPHAGOGASTRODUODENOSCOPY TRANSORAL DIAGNOSTIC 02/2002 EGD ESOPHAGOGASTRODUODENOSCOPY [...] Medication Sig simvastatin (ZOCOR (more content not included)...[facility] 12-28-2023 Miscellaneous Notes* Telephone Encounter - Kelley Rivera LPN - 12/28/2023 11:57 AM EST Pt notified. Nurse visit arranged for 01/01/24. * Telephone Encounter - Kelley Rivera LPN - 12/28/2023 10:50 AM EST Called Pattie at [phone]. This PA is completed with pharmacy to aileen aureliano at [phone]. This reference number is [id number]. Called pharmacy and they report there is a PA already on file for Dr. Rey Vann covered until 05/11/24. Did start a new PA for pcp. This was reviewed over the phone and PA approved from 12/28/23 to 12/27/24. This auth number is [id number]. They will also fax approval notice too. [...] 1:21 PM EST Bone density completed at [facility]. View External Imaging - Bone Density [ID [id number]] Previously completed PA for prolia to be [...] prilia is still recommended documented in this encounterBluffton Hospital11-07-2024 Telephone encounter Note * Telephone Encounter - Kelley Rivera LPN - 12/28/2023 11:57 AM EST Pt notified. Nurse visit arranged for 01/01/24. [facility]11-07-2024 Telephone encounter Note* Telephone Encounter - Kelley Rivera LPN - 12/28/2023 10:50 AM EST Called Pattie at [phone]. This PA is completed with pharmacy to aileen aureliano at [phone]. This reference number is [id number]. Called pharmacy and they report there is a PA already on file for Dr. Rey Vann covered until 05/11/24. Did start a new PA for pcp. This was reviewed over the phone and PA approved from 12/28/23 to 12/27/24. This auth number is [id number]. They will also fax approval notice too. [facility]11-07-2024 Telephone encounter Note* Telephone Encounter - Kelley Rivera LPN - 12/28/2023 10:08 AM EST Called pt and she was notified. She is willing to keep getting the prolia if insurance will cover. Will contact them for PA for prolia. [facility]11-06-2024 Telephone encounter Note* Telephone Encounter - Ariella Christianson RN - 12/27/2023 5:56 PM EST Attempted to contact patient. No answer. Try again. Ariella Christianson, RN [facility]11-06-2024 Telephone encounter Note* Telephone Encounter - Amos Floyd MD - 12/27/2023 5:46 PM EST I see she still recently had issues with high calcium and her vitamin D is in a good range. So for her, at this time, additional calcium and vitamin D is not recommended. [facility]11-06-2024 Telephone encounter Note* Telephone Encounter - Milagros Burton LPN - 12/27/2023 3:04 PM EST Patient returned call and went over results, notes from Dr Floyd with understanding. Patient said she is not taking any Calcium or Vitamin D. What dose and is she to start taking both? [facility]11-06-2024 Telephone encounter Note* Telephone Encounter - Isha Wright LPN - 12/27/2023 2:38 PM EST Left message for Patient to call office. Isha Wright LPN [facility]11-06-2024 Telephone encounter Note* Telephone Encounter - [...] of treatment is needed. Amos Floyd MD [facility]11-05-2024 Telephone encounter Note* Telephone Encounter - Kelley Rivera LPN - 12/26/2023 1:21 PM EST Bone density completed at [facility]. View External Imaging - Bone Density [ID [id number]] Previously completed PA for prolia to be [...] nurse visit) if prilia is still recommended [facility]10-30-2024 NoteHNO ID: [id number] Author: NATHALY REN APRN.ROOFER VINYL COATING Service: ? Author Type: Nurse Practitioner Type: [...] call back and/or check MyChart Routed to [facility] for scheduling 12/20/2023 Imaging result: routed to [...] chest is needed CT chest outside hospital 05/15/2023[facility]10-30-2024 History of Present illness Narrative* Nathaly Ren APRN.ROOFER VINYL COATING - 12/20/2023 12:29 PM EDT Images from [...] call back and/or check MyChart Routed to [employer] for scheduling 12/20/2023 Imaging result: routed to [...] chest outside hospital 05/15/2023 documented in this encounterBluffton Hospital10-21-2024 Telephone encounter Note * Telephone Encounter - Torsten Vora MA - 12/11/2023 9:20 AM EDT Patient notified, verbalized understanding. DXA scheduled for 12/20 [facility]10-21-2024 Miscellaneous Notes* Telephone Encounter - Torsten [...] Please advise patient, and cancel Rx at [facility] [place]. * Telephone Encounter - Kelley Rivera LPN [...] 12/07/2023 10:08 AM EDT [facility] They note the prescription [...] went to pharmacy benefits. Chaparro PERALTA (Kelly: [id number]) - [id number] Prolia 60MG/ML syringes status: PA Request Created: [...] her insurance from 02/20/23 to 02/20/2024 through [facility]. Will call her insurance to see if we can just change the provider and place of service. There wouldbe no change with her clinical requirements. * Telephone Encounter - Kelley Rivera LPN - 12/05/2023 4:19 PM EDT PA needed for prolia. documented in this encounterBluffton Hospital10-19-2024 Telephone encounter Note * Telephone Encounter - Amos Floyd MD - 12/09/2023 12:11 PM EDT Okay. Do bone density and we'll evaluate options at her follow up in January. [facility]10-18-2024 Telephone encounter Note* Telephone Encounter - [...] Please advise patient, and cancel Rx at [facility]. [facility]10-17-2024 Telephone encounter Note* Telephone Encounter - [...] injection for the nurse to give. T [facility]10-17-2024 Telephone encounter Note* Telephone Encounter - Amos Floyd MD - 12/07/2023 12:16 PM EDT The following approved medication requests have been transmitted electronically. Requested Prescriptions Signed Prescriptions Disp Refills denosumab (PROLIA) 60 mg/mL 1 mL 1 Sig: Inject 1 mL subcutaneously once every 6 months. Authorizing Provider: AMOS FLOYD MD [facility]10-17-2024 Telephone encounter Note* Telephone Encounter - Kelley Rivera LPN - 12/07/2023 10:08 AM EDT [facility]. They note the prescription is already covered by the plan with no restrictions with pharmacy D plan. Pt will need rx to local pharmacy and bring to an appt with nurse schedule to be given here. [facility]10-16-2024 Telephone encounter Note* Telephone Encounter - Kelley Rivera LPN - 12/06/2023 4:32 PM EDT Pt notified we are waiting for insurance to review a prior auth for the prolia [facility]10-16-2024 Telephone encounter Note* Telephone Encounter - [...] Rivera LPN December 06, 2023 4:29 PM [facility]10-16-2024 Miscellaneous Notes* Telephone Encounter - Kelley [...] 06, 2023 4:29 PM documented in this encounterBluffton Hospital10-16-2024 Telephone encounter Note * Telephone Encounter - Kelley Rivera LPN - 12/06/2023 3:55 PM EDT This went to pharmacy benefits. LINDA PERALTA (Kelly: [id number]) - [id number] Prolia 60MG/ML syringes status: PA Request Created: December 06, 2023 Sent: December 06, 2023 Will see what their response is,may have to call for medical benefits PA coverage to review. [facility]10-16-2024 Telephone encounter Note* Telephone Encounter - Kelley Rivera LPN - 12/06/2023 2:15 PM EDT Per benefits inquiry it appears pt is covered now with [employer] medicare. [facility]10-16-2024 Telephone encounter Note* Telephone Encounter - Kelley Rivera LPN - 12/06/2023 2:12 PM EDT Called [employer] and pt no longer covered. This was terminated 02/20/23. [facility]10-16-2024 Telephone encounter Note* Telephone Encounter - Kelley Rivera LPN - 12/06/2023 12:25 PM EDT In review the prolia is already approved with her insurance from 02/20/23 to 02/20/2024 through [facility]. Will call her insurance to see if we can just change the provider and place of service. There wouldbe no change with her clinical requirements. [facility]10-15-2024 Telephone encounter Note* Telephone Encounter - Kelley Rivera LPN - 12/05/2023 4:19 PM EDT PA needed for prolia. [facility]10-11-2024 Telephone encounter Note* Telephone Encounter - [...] Please review and advise, Salima Pedraza RN [facility]10-11-2024 Miscellaneous Notes* Telephone Encounter - Salima [...] 1:57 PM Dxa scan order faxed to [facility]. * Telephone Encounter - Amos Floyd MD [...] to Dr. Vann does not work with Lares's Disease. She states her last Prolia injection was in May and she is due. Patient asking if Dr. Floyd would be agreeable to placing a Prolia injection order for her? Reports she could see a Dr. Gregory in [place], [facility] of [facility], for this but more convenientfor her to [...] being managed by Dr. King Rocio Elizalde APRN.ROOFER VINYL COATING * Telephone Encounter - Jeaneth Rodriguez - 11/28/2023 11:42 AM EDT Pt wondering if Dr. Amor can order a prolia shot for her, please review and advise. Jeaneth Rodriguez November 28, 2023 11:42 AM documented in this encounterBluffton Hospital10-10-2024 Telephone encounter Note * Telephone Encounter - Torsten Vora MA - 11/30/2023 1:57 PM EDT Left message to call office. 11/30/2023 1:57 PM Dxa scan order faxed to [facility]. [facility]10-10-2024 Telephone encounter Note* Telephone Encounter - Amos Floyd MD - 11/30/2023 12:24 PM EDT ASSESSMENT/PLAN: 1. Age-related osteoporosis with current pathological fracture with routine healing - ICD9: V54.29,733.01, ICD10: M80.00XD - DENOSUMAB 60 MG/ML SUBCUTANEOUS SYRINGE. Ordered. - DXA-AXIAL SKELETON. Do this at [facility] where she's had previous bone densities. Amos Floyd MD [facility]10-08-2024 Telephone encounter Note* Telephone Encounter - Va Aguayo RN - 11/28/2023 2:31 PM EDT Patient returned call and given provider's message below. Patient states she does not see Dr. Vann any more-that she was dismissed from them due to Dr. Vann does not work with Lares's Disease. She states her last Prolia injection was in May and she is due. Patient asking if Dr. Floyd would be agreeable to placing a Prolia injection order for her? Reports she could see a Dr. Gregory in [place], [facility], for this but more convenientfor her to ask PCP. Or, does PCP feel she does need any further Prolia injections? Please advise. Thank you. [facility]10-08-2024 Telephone encounter Note* Telephone Encounter - Isha Wright LPN - 11/28/2023 1:55 PM EDT Left message to call & speak to nurse. Isha Wright LPN [facility]10-08-2024 Telephone encounter Note* Telephone Encounter - Rocio Elizalde APRN.[employer] - 11/28/2023 1:38 PM EDT It looks like this is being managed by Dr. King Rocio Elizalde APRN.[employer] [facility]10-08-2024 Telephone encounter Note* Telephone Encounter - Jeaneth Rodriguez - 11/28/2023 11:42 AM EDT Pt wondering if Dr. Amor can order a prolia shot for her, please review and advise. Jeaneth Rodriguez November 28, 2023 11:42 AM [facility]09-24-2024 NoteHNO ID: [id number] Author: ECHO MILLER RN Service: ? Author [...] been in the hospital for Moris's disease, Lares's crisis, and been treated for hypercalcemia. Since [...] then started on heparin drip on Monday sole filler 1 AM. She was also found to have UTI and hypercalcemia Pt TT [facility] for ADM with NSTEMI. Pt identified by name and . Reason for Review: Payor request Patient Attributed To: HORACE Payer: PATTIE Chart Review For: Utilization: ED Total Patient High CostTotal Patient High Cost {HIGH COST:374462) Quality measure review Payor request for assistance Action Taken: Data submitted to payor Echo Miller RN November 14, 2023 3:40 [facility]09-24-2024 History of Present illness Narrative* Echo [...] been in the hospital for Moris's disease, Lares's crisis, and been treated for hypercalcemia. Since [...] then started on heparin drip on Monday sole filler 1 AM. She was also foundto have UTI and hypercalcemia Pt TT [facility] for ADM with NSTEMI. Pt identified by name and . Reason for Review: Payor request Patient Attributed To: HORACE Payer: PATTIE Chart Review For: Utilization: ED Total Patient High CostTotal Patient High Cost {HIGH COST:218616) Quality measure review Payor request for assistance Action Taken: Data submitted to payor Echo Miller RN November 14, 2023 3:40 PM documented in this encounterBluffton Hospital09-24-2024 NotePatient Outreach ([facility]) LINDA PERALTA ([id number]) 1945 F Date Time Provider Department 11/14/23 ECHO MILLER [facility] During your visit today, we recorded the following information about you: Echo Miller RN 11/14/2023 3:48 PM Signed CC [facility] NURSE - CHART REVIEW Provider [facility] Action Chart review 06/08/23 [facility] ED for patient had 2 episodes of chest pain approximately 15 minutes, described as a dull pressure in her chest associate with nausea that have since resolved. This happened earlier this morning. Patient is on Coumadin, for repeat lower extremity DVTs. Patient was recently been in the hospital for Lares's disease, Lares's crisis, and been treated for hypercalcemia. Since [...] then started on heparin drip on Monday sole filler 1 AM. She was also found to have UTI and hypercalcemia Pt TT [facility] for ADM with NSTEMI. Pt identified by name and . Reason for Review: Payor request Patient Attributed To: HORACE Payer: PATTIE Chart Review For: Utilization: ED Total Patient High CostTotal Patient High Cost {HIGH COST:084509) Quality measure review Payor request for assistance [...] Weakness [R53.1] 05/31/2023 NS (more content not included)...[facility]07-30-2024 History of Present illness Narrative* Kole El, PT - 09/19/2023 12:06 PM EDT Program_ID:[id number] Access Code: [email or web address] URL: [email or web address] Date: 09-19-2023 Prepared By: Kole El Program [...] included: Therapeutic exercise, Neuromuscular re-education, Manual therapy, Self-usp management, andGait training. Updated 05/31/23 & 07/05/23, 08/09/23, 09/19/23. Goals for Episode of Care: created on 03/28/23 through 09/19/23 [place] in home exercise program.-- MET Patient will [...] 1203 Kole El PT documented in this encounterBluffton Hospital07-23-2024 History of Present illness Narrative* Kole [...] 1152 Kole El PT documented in this encounterBluffton Hospital07-19-2024 History of Present illness Narrative* Kole [...] 1508 Kole El PT documented in this encounterBluffton Hospital07-10-2024 History of Present illness Narrative* Kole [...] 1528 Kole El PT documented in this encounterBluffton Hospital07-01-2024 History of Present illness Narrative* Jacinda [...] 1225 AURELIA Crockett PT documented in this encounterBluffton Hospital06-21-2024 History of Present illness Narrative* Amos Floyd MD - 08/11/2023 10:58 AM EDT This note was created using [employer]. Subjective Linda Peralta is a 78 year old female here with her daughter. Her blood pressure was improving, and she was able to complete physical therapy this week. I had advised her to take amlodipine 5 mg 2 tablets daily, which was from her food assembler kitchen. They had been titrating her dose upward. She was scheduled to see her political aide, Dr. Gregory at . He did not [...] Group. Amos Floyd MD documented in this encounterBluffton Hospital06-20-2024 Telephone encounter Note * Telephone Encounter - Isha Wright LPN - 08/10/2023 10:28 AM EDT Below recommendation left on identified vm. Isha Wright LPN [facility]06-20-2024 Miscellaneous Notes* Telephone Encounter - Isha [...] high blood pressure. Patient did not read Road[employer] message 07/18. Clarify with patient what she is taking for hypertension. Further instructions to follow. Keep appointment this week. documented in this encounterBluffton Hospital06-20-2024 Telephone encounter Note * Telephone Encounter - Amos Floyd MD - 08/10/2023 6:10 AM EDT I think she should increase amlodipine to 10 mg daily. [facility] gave her 90 day supply so take two tablets daily. [facility]06-19-2024 History of Present illness Narrative* Kole [...] of Care: created on 03/28/23 through 08/09/23 [place] in home exercise program.-- Met continue to [...] Patient to be seen for Therapeutic exercise (79569), Neuromuscular re-education (25319), Manual therapy (27212), Self-usp management (71084), Therapeutic activities (64037), Gait Training (89132), Patient/Family/Caregiver Education, General Conditioning PLAN FOR NEXT [...] 957 Kole El PT documented in this encounterBluffton Hospital06-18-2024 Telephone encounter Note * Telephone Encounter [...] to her appt. 08/11/2023. Isha Wright LPN [facility]06-18-2024 Telephone encounter Note* Telephone Encounter - Amos Floyd MD - 08/08/2023 2:42 PM EDT PT not done due to high blood pressure. Patient did not read [employer] message 07/18. Clarify with patient what she is taking for hypertension. Further instructions to follow. Keep appointment this week. [facility]06-12-2024 History of Present illness Narrative* Kole [...] toward set goals. PLAN FOR NEXT VISIT: ID. SUBJECTIVE: Patient reports starting to take amlodipine [...] Intra BP 1: 164/108 (Leaving Appt.) TREATMENT: Self-Half-Way Management: 1: *Subjective assessment taken, discussed patient's [...] 931 Kole El PT documented in this encounterBluffton Hospital05-29-2024 History of Present illness Narrative* Kole [...] 2 weeks ago she tried to see Cell Efficiency Supervisor but reports the physician wasn't there and was rescheduled 07/26/23 @2pm. Patient reports she stopped taking a medication prescribed to her (she doesn't know the name off hand) because it was making her BP reading to high - states her PCP and Cell Efficiency Supervisor are not aware of this. Pain: Not Assessed this visit. OBJECTIVE MEASURES WITH LEVEL OF FUNCTION: Vitals BP: 164/108 (Resting.) Pulse: 85 Pre BP: 163/117 (12 Minutes into appt after sitting and discussing BP and medications.) Intra BP 1: 170/116 (Leaving Appt.) TREATMENT: Self-Half-Way Management: 1: *Subjective assessment taken, BP readings [...] 919 Kole El PT documented in this encounterBluffton Hospital05-15-2024 History of Present illness Narrative* Kole [...] of Care: created on 03/28/23 through 08/09/23 [place] in home exercise program.-- Met continue to [...] Patient to be seen for Therapeutic exercise (26739), Neuromuscular re-education (97766), Manual therapy (64349), Self-usp management (93709), Therapeutic activities (16516), Gait Training (61271), Patient/Family/Caregiver Education, General Conditioning PLAN FOR NEXT [...] resting above clinic guidelines for physical activity. Self-Half-Way Management: 1: *Progress check & subjective assessment [...] 1015 Kole El PT documented in this encounterBluffton Hospital05-10-2024 History of Present illness Narrative* Amos Floyd MD - 06/30/2023 9:49 AM EDT This note was created using [employer]. Subjective Linda Peralta is a 78 year old female was here with her daughter. She started having issues with hypercalcemia and weakness 05/14. Her political aide sent her to the ED for IV [...] (Arteriosclerotic Heart Disease) Dvt (Deep Venous Thrombosis) ([facility]) Chronic Nonallergic Rhinitis Pure hypercholesterolemia Atopic Neurodermatitis Hypertension Stage 3b Chronic Kidney Disease (Hcc) Hypertensive Kidney Disease With Stage 3b Chronic Kidney Disease (Hcc) Age-Related Osteoporosis With Current Pathological Fracture With Routine Healing Closed Displaced Fracture of Fifth Metatarsal Bone of Right Foot Gait Abnormality Physical Deconditioning Weakness Nstemi (Non-St Elevated Myocardial Infarction) ([facility]) Adrenal Insufficiency ([facility]) Nonrheumatic Aortic Valve Stenosis Current Outpatient Medications [...] (primary diagnosis) Follow up with endocrinology at [facility]. Labs ordered to facilitate [...] cardiology. Amos Floyd MD documented in this encounterBluffton Hospital05-08-2024 History of Present illness Narrative* Kole [...] 1202 Kole El PT documented in this encounterBluffton Hospital05-01-2024 History of Present illness Narrative* Kole El PT - 06/21/2023 1:42 PM EDT Program_ID:[id number] Access Code: [email or web address] URL: [email or web address] Date: 06-21-2023 Prepared By: Kole El Program [...] RLE. 4: Standing Marches: 2x10 ea. 5: [place] Carries: 2 Laps of 60 Feet, 8#db [...] 1342 Kole El PT documented in this encounterBluffton Hospital04-29-2024 Telephone encounter Note * Telephone Encounter - Delfino Hannah APRN.[employer] - 06/19/2023 10:44 AM EDT Please make a hospital follow up appointment to be seen by Dr. Baig or Nurse practitioner in 6-8 weeks. Thank you, Delfino Hannah APRN.[employer] [facility] Work Phone: 1(137) 998-865104-29-2024 Miscellaneous Notes* Telephone Encounter - Delfino Hannah APRN.CNP - 06/19/2023 10:44 AM EDT Please make a hospital follow up appointment to be seen by Dr. Baig or Nurse practitioner in 6-8 weeks. Thank you, Delfino Hannah APRN.TELLY documented in this encounterBluffton Hospital04-24-2024 History of Present illness Narrative* Kole [...] recent hospital admission. She demonstrated difficulty with zbb-ur-huxsbv. The patient will continue to benefit from ongoing skilled physical therapy to progress toward set goals. PLAN FOR NEXT VISIT: Gross LE Strengthening; Endurance and Conditioning following hospital admission; take vitals throughout. SUBJECTIVE: Patient reports hospital admission at [facility] for cardiac issues/NSTEMI, also found with UTI and hypercalcemia. Was on Heparin in the hospital. Was admitted in [facility] since last 06/08/23. Physicians have since released her and stated to continue physical activity as able. States she is now on a protein diet. States taking BP today 138/83 this a.m. Pain: Pain Pain Level: 0 Post Treatment Pain Post Treatment Pain Level: 0 OBJECTIVE MEASURES WITH LEVEL OF FUNCTION: Decreased eccentric control down to chair from mol-le-ingnmd. Vitals BP: 157/106 (Initial.) Pulse: 87 SpO2: 98 % Additional Vitals: Yes Pre Assessment: BP Pre BP: 169/104 (84bpm. After Step-Ups.) Intra Assessment 1: BP Intra 1 Intra BP 1: 174/104 (After Czb-wd-Gfnzcz; ended session following.) Intra Assessment 2: BP Intra 2 Intra BP 2: 154/104 (BP before leaving.) TREATMENT: Therapeutic Exercise: 1: Warm Up on SCI-FIT: 6 Minutes (Vitals and Subjective Taken: Direct 1:1.) 2: 6 Fwd Stepups: 2x12 ea. leg. 3: 6 Lateral Stepups: 2x12 ea. 4: Chair Mot-sa-jujqrp: 2x5. (Patient required assist from 2 UEs [...] 1155 Kole El PT documented in this encounterBluffton Hospital04-18-2024 Miscellaneous Notes* Telephone Encounter - Jorge [...] and currently taking hydrocortisone, prescribed by in [place]. Today dealing with CP on right side [...] 11. : Post menopause. Protocols used: Chest Bamp-GTHTT-WZ documented in this encounterBluffton Hospital04-18-2024 Telephone encounter Note * Telephone Encounter - Thelma Suarez LPN - 06/08/2023 11:03 AM EDT Message below given to daughter. Daughter reports pt is having chest pain and problems swallowing. RN to triage call further. Thelma Suarez LPN [facility]04-18-2024 Miscellaneous Notes* Telephone Encounter - Thelma [...] 110 standing * Telephone Encounter - Torsten Vora MA - 06/07/2023 2:42 PM EDT Left message to call office. 06/07/2023 2:42 PM * Telephone Encounter - Torsten Vora MA - 06/07/2023 2:37 PM EDT ----- Message from Rocio Elizalde APRN.[employer] sent at 05/31/2023 12:58 PM EDT ----- Please call patient for home blood pressure readings documented in this encounterBluffton Hospital04-18-2024 Telephone encounter Note * Telephone Encounter - Prachi Farrar MA - 06/08/2023 9:15 AM EDT Left message for return call. [facility]04-18-2024 Telephone encounter Note* Telephone Encounter - Rocio Elizalde APRN.CNP - 06/08/2023 8:30 AM EDT She should continue with the midodrine until she sees Dr. Floyd on 06/29, I will send in a refill to get her through until this appointment Rocio Elizalde APRN.[employer] [facility]04-17-2024 Telephone encounter Note* Telephone Encounter - Prachi Farrar MA - 06/07/2023 6:24 PM EDT Patient states she is to have blood work in [address] Gregory in 4 weeks. No medicationchanges. [facility]04-17-2024 Telephone encounter Note* Telephone Encounter - Rocio Elizalde APRN.CNP - 06/07/2023 5:46 PM EDT BP looks better. Did she have follow-up with Dr. Gregory? Did he make any medication changes? /Rocio Elizalde APRN.CNP [facility]04-17-2024 Telephone encounter Note* Telephone Encounter - [...] standing 1120 am 150/76 pulse 110 standing [facility]04-17-2024 Telephone encounter Note* Telephone Encounter - Torsten Vora MA - 06/07/2023 2:42 PM EDT Left message to call office. 06/07/2023 2:42 PM [facility]04-17-2024 Telephone encounter Note* Telephone Encounter - Torsten Vora MA - 06/07/2023 2:37 PM EDT ----- Message from Rocio Elizalde APRN.CNP sent at 05/31/2023 12:58 PM EDT ----- Please call patient for home blood pressure readings [facility]04-10-2024 Miscellaneous Notes* Telephone Encounter - Kelley Rivera LPN - 05/31/2023 2:18 PM EDT [facility] infusion suite called asking for dx for INR. In review dx of DVT code was given per problem list. documented in this encounterBluffton Hospital04-10-2024 History of Present illness Narrative* Rocio Elizalde APRN.CNP - 05/31/2023 1:01 PM EDT PT requesting orders Rocio Elizalde APRN.CNP documented in this encounterBluffton Hospital04-10-2024 History of Present illness Narrative* Rocio Elizalde APRN.CNP - 05/31/2023 11:26 AM EDT CC: Patient presents with: Hospital F/U: High calcium HPI Linda Peralta is a 78 year old female who presents today for above. Patient was admitted to 05/23 to 05/25 for elevated calcium, weakness and hypotension. She had been treated for this a couple weeks prior at [facility] with Zometa infusion. Levels had initially improved but were high again on repeat outpatient labs. She has a history of idiopathic hypercalcemia. She was treated with Calcitonin during this admission which lowered ionized calcium from 1.53 to 1.32. Her political aide is Dr. Gregory at , she is scheduled for follow-up with him on 06/05. Her main concern today is weakness, lightheadedness and hypotension. She was taken off blood pressure medications by her food assembler kitchen due to hypotension, last dose was over two weeks ago. Checking her BP at home, fluctuates between 100's/60's to 130's/80's. She does feel lightheaded when her BP is low. Weakness has been an ongoing issue however she was starting to improve with PT until now. She has a history of Lares's disease. Her Cortef dose was being titrated down by previous political aide due to bone loss which is also [...] eczema, due to unspecified cause 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Lares's disease Cystocele, midline 07/23/2007 Diverticulosis of colon (without mention of hemorrhage) DVT (deep venous thrombosis) ([facility]) 03/23/2012 DVT of lower extremity (deep venous thrombosis) ([facility]) 03/27/2009 Esophageal reflux Gallstones 03/06/2016 Hypercalcemia 03/19/2009 Hypertension NSTEMI (non-ST elevated myocardial infarction) ([facility]) 04/27/2009 Cardiac cath normal Other adrenal hypofunction [...] W/COLLJ SPEC WHEN PFRMD 03/26/2010 Inpatient at [facility] ESOPHAGOGASTRODUODENOSCOPY TRANSORAL DIAGNOSTIC 02/2002 EGD ESOPHAGOGASTRODUODENOSCOPY [...] dupilumab 300 mg/2 mL subcutaneous pen injector ([place]) .[id number] fluticasone (FLONASE) 50 mcg/actuation nasal spray Use [...] ICD10: I95.89 (primary diagnosis) Suspect secondary to Lares's and possibly decreased dose of Cortef. Discussed with patient's PCP,the following recommendations reviewed with patient and daughter: IV fluid bolus, will fax orders to [facility] as there is no availability within [facility]. Start Midodrine, see orders. Continue to maintain adequate hydration to include not only water but other liquids as well to avoid hemodilution. Continue to monitor BP at home, we will call her next week for readings Follow-up with political aide next week as scheduled Follow-up with PCP in one month 2. 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 Hypercalcemia - ICD9: 275.42, ICD10: E83.52 As above Prescription instructions reviewed with patient as applicable. Potential red flag symptoms discussed with the patient. Reviewed appropriate action plan to take if red flag symptoms occur. Patient agreeable to treatment plan. Rocio Elizalde APRN.[employer] documented in this encounterBluffton Hospital04-10-2024 History of Present illness Narrative* Kole El, PT - 05/31/2023 10:27 AM EDT Program_ID:[id number] Access Code: [email or web address] URL: [email or web address] Date: 05-31-2023 Prepared By: Kole El Program [...] of Care: created on 03/28/23 through 07/05/23 [place] in home exercise program.-- Met continue to [...] Patient to be seen for Therapeutic exercise (93551), Neuromuscular re-education (09204), Manual therapy (05658), Self-usp management (01918), Therapeutic activities (31032), Gait Training (35494), Patient/Family/Caregiver Education, General Conditioning PLAN FOR NEXT [...] program to facilitate proper performance and compliance. Self-Half-Way Management: 1: *Longer discussion regarding recent decline [...] 1032 Kole El PT documented in this encounterBluffton Hospital04-05-2024 History of Present illness Narrative* Temitope [...] Unit/Bed: 1008/1008-A Date of : 1945 Acct: [id number] Admitting Diagnosis: Hypercalcemia [E83.52] Date: 05/24/2023 Hospital [...] disease (CMS/HCC) DVT (deep venous thrombosis) (CMS/HCC) Lares's disease (CMS/HCC) Primary hypertension Pure hypercholesterolemia Urinary [...] for assistance if needed. * Raisa Frederick APRN-[employer] - 05/25/2023 10:11 AM EDT Daily Progress [...] note, this documentation is completed using the [employer] Dictation system (voice recognition software). There may [...] came to the hospital on 05/23 from [place] [facility]. dx: hypercalcemia. test/labs : calcium 11.1. [...] and LUE LUE: Within Functional Limits Outcome Measures:[facility] Daily Activity Putting on and [...] (Progressing) Start: 05/24/23 Expected End: 06/07/23 * Jaidne Tracy, PT - 05/24/2023 2:29 PM EDT [...] disease with stage 3b chronic kidney disease ([facility]/HCC) DVT (deep venous thrombosis) ([facility]/HCC) Lares's disease ([facility]) Primary hypertension Pure hypercholesterolemia Urinary tract infection, [...] came to the hospital on 05/23 from [facility]. dx: hypercalcemia. test/labs : calcium 11.1. Home [...] LLE : Within Functional Limits Outcome Measures: [facility] Basic Mobility Turning from your [...] Comments No comments found. * Raisa Frederick, BROKERAGE CLERK-[employer] - 05/24/2023 2:23 PM EDT Daily Progress Note Linda Peralta is a 78 y.o. female on day 1 of admission presenting with Hypercalcemia. Subjective Patient seen sitting up in the chair without any complaints. Patient was transferred from [facility] after found to have elevated [...] muscular weakness History of donor nephrectomy History Lares's disease HTN UTI GERD History of PE/DVT [...] note, this documentation is completed using the [employer] system (voice recognition software). There may be [...] be discharged to: Home Patient is from [place], is here d/t hypercalcemia and her provider [...] disease with stage 3b chronic kidney disease ([facility]) Lares's disease ([facility]) Urinary tract infection, site not specified Assessment [...] continue LOS: 1 day documented in this [facility] Work Phone: 1(364) 338-976804-05-2024 Hospital course Narrative* NICOLE Wilkinson - 05/26/2023 [...] a significant past medical history of hypercalcemia, Lares's disease, HTN, GERD, PE/DVT on warfarin presenting to [facility] from [place] [facility] after found to have elevated ionized calcium on routine lab work. Patient presented to [place] for IV fluids, UAreportedly showed evidence of [...] future appointments. NICOLE Wilkinson documented in this [facility] Work Phone: 1(252) 472-159704-04-2024 Hospital Note* Hospital Course - NICOLE Wilkinson - 05/25/2023 11:49 AM EDT Linda Peralta is a 78 y.o. female with a significant past medical history of hypercalcemia, Lares's disease, HTN, GERD, PE/DVT on warfarin presenting to [facility] from [place] [facility] after found to have elevated ionized calcium on routine lab work. Patient presented to [place] for IV fluids, UAreportedly showed evidence of [...] On day of discharge patient hemodynamically stable. [facility] Work Phone: 1(514) 873-578504-04-2024 Miscellaneous Notes* Hospital Course - NICOLE Wilkinson - 05/25/2023 11:49 AM EDT Linda Peralta is a 78 y.o. female with a significant past medical history of hypercalcemia, Lares's disease, HTN, GERD, PE/DVT on warfarin presenting to [facility] from [place] [facility] after found to have elevated ionized calcium on routine lab work. Patient presented to [place] for IV fluids, UAreportedly showed evidence of [...] discharge patient hemodynamically stable. [facility] in this [facility]UnOhio[facility] Work Phone: 1(898) 980-589004-04-2024 Hospital Discharge instructions* Discharge Instructions* NICOLE Wilkinson - 05/25/2023 11:45 AM EDT Thank you for choosing [facility]. It has been a pleasure taking part in your medical care. Please follow up with your primary care provider as instructed. If your symptoms should persist or worsen, please contact your primary care physician, or in the case of an emergency proceed to the nearest Emergency Room for further care. If you have any questions about the care you received, please call [facility] at . Thank you again! TELLY Kline documented in this [facility] Work Phone: [phone]) 514-944304-03-2024 Consult note* Alexander Gregory MD - 05/24/2023 [...] IV fluids and transferred her over to [facility]. Here she has been feeling [...] a significant past medical history of hypercalcemia, Lares's disease, HTN, GERD, PE/DVT on warfarin presenting to [facility] from [place] [facility] after found to have elevated ionized calcium on routine lab work. Patient presented to [place] for IV fluids, UAreportedly showed evidence of [...] and daughter at bedside Souleymane Lopez [POA] [phone]; patient has advanced directives - not available in [facility], family encouraged to bring to hospital or [...] Colin Gregory MD FACE Office phone - [phone] Fax - [phone] Address: [address] [facility] [address] Address: [address] [facility] [address] 05/24/2023 9:13 PM [facility] Work Phone: 1(420) 329-687404-03-2024 Consult note* Alexander Gregory MD - 05/24/2023 [...] IV fluids and transferred her over to [facility]. Here she has been feeling [...] a significant past medical history of hypercalcemia, Lares's disease, HTN, GERD, PE/DVT on warfarin presenting to [facility] from [place] [facility] after found to have elevated ionized calcium on routine lab work. Patient presented to [place] for IV fluids, UAreportedly showed evidence of [...] and daughter at bedside Souleymane Lopez [POA] [phone]; patient has advanced directives - not available in [place], family encouraged to bring to hospital or [...] Colin Gregory MD FACE Office phone - [phone] Fax - [phone] Address: [address] [place] [address] Address: [address] [place] [address] 05/24/2023 9:13 PM documented in this [facility] Work Phone: 1(978) 971-400604-03-2024 History and physical note* Shakira Antunez APRN-[employer]FER [employer] - 05/24/2023 2:11 AM EDT Medical Group History and Physical ASSESSMENT & PLAN: Hypercalcemia Hx donor nephrectomy Hx Lares's disease - IVF 100ml/hr x1day; regular diet - tele x 1day d/t above dx - labs: PTH, ionized ca, vit D, CMP, CBC, lactate - Consult to Endocrine - known to Dr Gregory UTI symptom of increased frequency and urgency, no dysuria - Send UA - started on keflex 500 BID - from [place] [facility] - cont this admission - noted [...] upload POA - daughter - Souleymane Lopez [phone] VTE Prophylaxis: Resume warfarin Shakira Antunez APRN-ROOFER [employer] HISTORY OF PRESENT ILLNESS: Chief Complaint: hypercalcemia History Of Present Illness: Linda Peralta is a 78 y.o. female with a significant past medical history of hypercalcemia, Lares's disease, HTN, GERD, PE/DVT on warfarin presenting to [facility] from [place] [facility] after found to have elevated ionized calcium on routine lab work. Patient presented to [place] for IV fluids, UAreportedly showed evidence of [...] and daughter at bedside Souleymane Lopez [POA] [phone]; patient has advanced directives - not available in [facility], family encouraged to bring to hospital or [...] IVF, labs ordered, Endo consult Adrenal hypofunction ([facility]) Overview Signed 05/24/2023 2:02 AM by NICOLE [...] (Neuro [facility]), on florinef 0.[address] [facility], prednisone 5 mg [facility]. (): admitted for loss of consciousness, orthostatic, [...] disease with stage 3b chronic kidney disease ([facility]) DVT (deep venous thrombosis) ([facility] Overview Signed 05/24/2023 2:02 AM by NICOLE Ahmadi 2009 Lares's disease ([facility] Overview Signed 05/24/2023 2:02 AM by NICOLE [...] 24 hour(s)). Imaging: No orders to display [facility] Work Phone: 1(173) 942-423604-03-2024 History and physical note* NICOLE Ahmadi - 05/24/2023 2:11 AM EDT Medical Group History and Physical ASSESSMENT & PLAN: Hypercalcemia Hx donor nephrectomy Hx Lares's disease - IVF 100ml/hr x1day; regular diet - tele x 1day d/t above dx - labs: PTH, ionized ca, vit D, CMP, CBC, lactate - Consult to Endocrine - known to Dr Gregory UTI symptom of increased frequency and urgency, no dysuria - Send UA - started on keflex 500 BID - from [place] [facility] - cont this admission - noted [...] upload POA - daughter - Souleymane Lopez [phone] VTE Prophylaxis: Resume warfarin Shakira Antunez, BROKERAGE CLERK-[employer]FER [employer] HISTORY OF PRESENT ILLNESS: Chief Complaint: hypercalcemia History Of Present Illness: Linda Peralta is a 78 y.o. female with a significant past medical history of hypercalcemia, Lares's disease, HTN, GERD, PE/DVT on warfarin presenting to [facility] from [place] [facility] after found to have elevated ionized calcium on routine lab work. Patient presented to [place] for IV fluids, UAreportedly showed evidence of [...] and daughter at bedside Souleymane Lopez [POA] [phone]; patient has advanced directives - not available in [facility], family encouraged to bring to hospital or [...] IVF, labs ordered, Endo consult Adrenal hypofunction ([facility]) Overview Signed 05/24/2023 2:02 AM by NICOLE [...] disease with stage 3b chronic kidney disease ([facility]) DVT (deep venous thrombosis) ([facility]) Overview Signed 05/24/2023 2:02 AM by NICOLE Ahmadi 2009 Lares's disease ([facility]) Overview Signed 05/24/2023 2:02 AM by NICOLE [...] No orders to display documented in this encounterUK Healthcare Work Phone: 1(674) 704-509004-02-2024 Telephone encounter Note* Telephone Encounter - Elijah Freed MD - 05/23/2023 6:53 PM EDT Called by lab regarding patient's critical ionized calcium level of 1.69 which is up from 1.6 on 05/11. Noted patient was sent to the ER by her political aide with this lower reading on 05/11. Called patient who states that she does feel dizzy, mild confusion, muscle weakness, increased thirst. Recommended patient return to the ER for further workup and treatment. Patient will have her daughter drive her. Called and spoke with Dr Lott at [facility] ER and was given report. [facility] Work Phone: 1(962) 706-971404-02-2024 Miscellaneous Notes* Telephone Encounter - Elijah Freed MD - 05/23/2023 6:53 PM EDT Called by lab regarding patient's critical ionized calcium level of 1.69 which is up from 1.6 on 05/11. Noted patient was sent to the ER by her political aide with this lower reading on 05/11. Called patient who states that she does feel dizzy, mild confusion, muscle weakness, increased thirst. Recommended patient return to the ER for further workup and treatment. Patient will have her daughter drive her. Called and spoke with Dr Lott at [facility] ER and was given report. documented in this encounterBluffton Hospital04-02-2024 Discharge summary Author Ankush Noguera [facility] May 23, 2023 10:48pm Note Date/Time May 23, 2023 10:4 2pm [facility] Medical Records Department [address] [place] [address] Emergency Department Summary 05/23/23 MR#: [id number] Acct: [id number] Name: LINDA PERALTA Rep #:[id number] : 1945 78 From: Ankush Noguera DO PCP: Dr. Amos Floyd MD Status:R EG ER Location: ED HPI History of Present Illness Chief Complaint: Abn Labs Narrative Narrative: 78-year-old female with history of Lares's disease who currently is treated byDr. Gregory from [facility] for this. Patient was [...] She does states she feels generally weak. [facility] Medical History Acute electrocardiogram changes Acute prerenal azotemia Lares disease Aortic stenosis Atopic dermatitis Chronic kidney disease Chronic kidney disease, stage 3 Closed head injury (03/20/20) Cystocele with rectocele Elevated serum creatinine Essential (primary) hypertension Frequent falls History of DVT (deep vein thrombosis) History of kidney cancer History of non-ST elevation myocardial infarction (NSTEMI) (04/2009) History of pulmonary embolism Hypercalcemia Hyperlipidemia Hypoglycemia (03/20/20) Hypokalemia Hypotension jail (current) use of anticoagulants MVP (mitral valve [...] mg/mL subcutaneous syringe (Prolia) 60 mg subcut [id number] #1 mL 11/24/22 [Rx Last Taken Unknown] [...] Other History of DVT (deep vein thrombosis) jail (current) use of anticoagulants Surgical History H/O [...] safe at home: Yes additional social history: [place]- Retired patient is retired ROS ROS ED [...] felt [facility] night that she got back to the emergency room today dueto the repeat lab work. He recommended admission for IV fluids and offered to have the patient admitted to [facility] versus here at [facility] however patient expressed her previous history of Dr. Vann from endocrinology was not good and she preferred to be transferred over to [place] where her political aide is for further testing and treatment. Currently awaiting follow-up call from the transfer line. She will need to be transferred but I believe she is stable for transfer via car and Dr. Gregory agreed but we are currently awaiting a bed assignment. Patient will be transferred when a bed is obtained. Impression: 1. Hypercalcemia 2. Generalized weakness 3. History of Lares's disease Lab Data Labs: Laboratory Results - last 24 hr 05/23/23 20:30 WBC 9.5 RBC 5.07 Hgb 14.5 Hct 43.3 MCV 85.4 MCH 28.6 MCHC 33.5 RDW Std Deviation 44.1 H RDW Coeff of Slava 14.2 Plt Count 271 MPV 10.9 Immature Gran % (Auto) 0.900 Neut % (Auto) 59.7 Lymph % (Auto) 19.2 [place] % (Auto) 9.7 Eos % (Auto) 9.7 [...] 21:40 EDT Reading Location ID and State: [address] [place] [address] Tel , Service support , Discharge Plan [...] Prolia 60 mg/mL syringe 60 mg subcut [id number] Qty: 1 1RF amlodipine 2.5 mg tablet [...] your Primary Care Provider. Call [facility] ([phone]) or report to the closest Emergency Room. Call 911 if necessary. 05/23/232247 <Electronically signed by Ankush Noguera DO> Cosigner Signature (if applicable): CC: Dr. Amos Floyd MD ~ Signed [facility] Work Phone: 1(141) 706-726904-02-2024 History of Present illness Narrative* Rocio Elizalde, BROKERAGE CLERK.ROOFER [employer]ATING - 05/23/2023 12:24 PM EDT CC: Patient presents with: ED Follow-up: [facility] ER HPI Linda Peralta is a 78 year old female who presents today with her daughter for above. Patient hadlab work ordered by her political aide Dr. Gregory on 05/14 which revealed critically high Calcium/ionized calcium. She was instructed to go to the ER immediately that day for treatment. She was treated at [facility] ER with IV fluids and Zometa infusion. [...] eczema, due to unspecified cause 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Lares's disease Cystocele, midline 07/23/2007 Diverticulosis of colon (without mention of hemorrhage) DVT (deep venous thrombosis) ([facility]) 03/23/2012 DVT of lower extremity (deep venous thrombosis) ([facility]) 03/27/2009 Esophageal reflux Gallstones 03/06/2016 Hypercalcemia 03/19/2009 Hypertension NSTEMI (non-ST elevated myocardial infarction) ([facility]) 04/27/2009 Cardiac cath normal Other adrenal hypofunction [...] W/COLLJ SPEC WHEN PFRMD 03/26/2010 Inpatient at [facility] ESOPHAGOGASTRODUODENOSCOPY TRANSORAL DIAGNOSTIC 02/2002 EGD ESOPHAGOGASTRODUODENOSCOPY [...] dupilumab 300 mg/2 mL subcutaneous pen injector ([place]) .[id number] meclizine (ANTIVERT) 25 mg tab Take 1 [...] REVIEWED: Most recent labs Outside chart from [facility] ER reviewed. ASSESSMENT/PLAN: 1. Hypercalcemia - ICD9: [...] Patient agreeable to treatment plan. Rocio Elizalde APRN.ROOFER [employer]ATING documented in this encounterBluffton Hospital04-02-2024 Miscellaneous Notes* Telephone Encounter - Carlos Roe RN - 05/23/2023 11:37 AM EDT Pt calling in again regarding below. Scheduled ER f/u visit for today at 1220 with Rocio Elizalde. * Telephone Encounter - Milagros Burton LPN - 05/22/2023 8:49 AM EDT Patient calling with question she was in [facility] ER on 05/14. She was dehydrated and low blood pressure.She said her calcium level was elevated, she was given IV medication to lower the calcium. Patient asking if she should do more lab work to recheck her calcium level? Please advise documented in this encounterBluffton Hospital04-02-2024 Miscellaneous Notes* Telephone Encounter - Carlos Roe RN - 05/23/2023 10:42 AM EDT Pt calling in again about repeating labs and concerns. ER f/u appt given for today with Rocio Elizalde at 1220 pm. documented in this encounterBluffton Hospital03-25-2024 Discharge summary Author Juan Alberto Mcclendon [facility] May 15, 2023 8:38pm Note Date/Time May 15, 2023 3:1 7pm [facility] Medical Records Department [address] [place] [address] Emergency Department Summary 05/15/23 MR#: [id number] Acct: [id number] Name: LINDA PERALTA Rep #:[id number] : 1945 78 From: Juan Alberto Mcclendon MD PCP: Dr. Amos Floyd MD Status:R EG ER Location: ED HPI History of Present Illness Chief Complaint: Abn Labs Informant: patient and family (daughter) Narrative Narrative: Patient sent in by her political aide Dr. Gregory at for high calcium level [...] because of her abnormal labs. She has Lares's syndrome, she is on daily hydrocortisone 20 [...] partly which led to the diagnosis of Lares's disease, however here in triage her blood pressure 68/51. [facility] Medical History Acute electrocardiogram changes Acute prerenal azotemia Lares disease Aortic stenosis Atopic dermatitis Chronic kidney disease Chronic kidney disease, stage 3 Closed head injury (03/20/20) Cystocele with rectocele Elevated serum creatinine Essential (primary) hypertension Frequent falls History of DVT (deep vein thrombosis) History of kidney cancer History of non-ST elevation myocardial infarction (NSTEMI) (04/2009) History of pulmonary embolism Hypercalcemia Hyperlipidemia Hypoglycemia (03/20/20) Hypokalemia Hypotension jail (current) use of anticoagulants MVP (mitral valve [...] mg/mL subcutaneous syringe (Prolia) 60 mg subcut [id number] #1 mL 11/24/22 [Rx Last Taken Unknown] [...] Other History of DVT (deep vein thrombosis) 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 After receiving the labs back, I will call the political aide prior to administering any of these medications. [...] as well. Called to discuss with her political aide Dr. Gregory, discussed with his PA who [...] (Auto) 65.8 Lymph % (Auto) 15.8 L [place] % (Auto) 10.7 H Eos % (Auto) [...] EDT , Management Discussion w/another healthcare provider: Chief Catalyst Operator (Endocrine ) Discharge Plan Triage Chief Complaint: Abn Labs ED Provider: Juan Alberto Mcclendon Dx/Rx/DC Orders Clinical Impression: Hypercalcemia, Lares disease, Transient hypotension Instructions: Hypercalcemia Dc Prescriptions: [...] Prolia 60 mg/mL syringe 60 mg subcut [id number] Qty: 1 1RF amlodipine 2.5 mg tablet [...] your Primary Care Provider. Call [facility] ([phone]) or report to the closest Emergency Room. Call 911 if necessary. 05/15/232037 <Electronically signed by Juan Alberto Mcclendon MD> Cosigner Signature (if applicable): CC: Dr. Amos Floyd MD ~ Signed [facility] Work Phone: 1(528) 403-344003-25-2024 Miscellaneous Notes* Telephone Encounter - Amos Floyd MD - 05/15/2023 3:38 PM EDT Noted. * Telephone Encounter - Ama Diaz RN - 05/15/2023 1:22 PM EDT Pts daughter Souleymane called in and reports her mothers Computer Field Technician Dr Gregory from [facility] called and told her mother to go to the ER. He said her Calcium was critically high, and she needs hydration, Zometa, and Calcitonin. Pt will be going to [facility]. documented in this encounterBluffton Hospital03-19-2024 History of Present illness Narrative* José Shi, PT, DPT - 05/09/2023 8:58 AM EDT Program_ID:[id number] Access Code: [email or web address] URL: [email or web address] Date: 05-09-2023 Prepared By: Kole El Program Notes Exercises - Supine Bridge with Mini Cypriot Ball Between Knees - 2 x daily [...] José Shi PT, DPT documented in this encounterBluffton Hospital03-12-2024 History of Present illness Narrative* José Shi PT, DPT - 05/02/2023 8:55 AM EDT Program_ID:[id number] Access Code: [email or web address] URL: [email or web address] Date: 05-02-2023 Prepared By: Kole El Program Notes Exercises - Supine Bridge with Mini Cypriot Ball Between Knees - 2 x daily [...] of Care: created on 03/28/23 through 05/30/23 [place] in home exercise program.-- Met continue to [...] Patient to be seen for Therapeutic exercise (41305), Neuromuscular re-education (19762), Manual therapy (10652), Self-usp management (62889), Therapeutic activities (18611), Gait Training (35084), Patient/Family/Caregiver Education PLAN FOR NEXT VISIT: Assess [...] José Shi PT, DPT documented in this encounterBluffton Hospital02-20-2024 History of Present illness Narrative* Kole [...] Clamshells: 2x12 ea., PinkTb. 3: Bridges: 2x12, [place] TB 4: Supine SLR: 2x6, 2#cuff. 5: [...] 1111 Kole El PT documented in this encounterBluffton Hospital02-12-2024 History of Present illness Narrative* Kole El PT - 04/03/2023 10:57 AM EST Program_ID:[id number] Access Code: [email or web address] URL: [email or web address] Date: 04-03-2023 Prepared By: Kole El Program [...] 1100 Kole El PT documented in this encounterBluffton Hospital02-06-2024 History of Present illness Narrative* Kole El PT - 03/28/2023 9:04 AM EST Program_ID:[id number] Access Code: [email or web address] URL: [email or web address] Date: 03-28-2023 Prepared By: Kole El Program [...] of Care: created on 03/28/23 through 05/09/23 [place] in home exercise program. Patient will decrease [...] Planned: 6 Planned Treatment Interventions: Therapeutic exercise (30843), Neuromuscular re- education (56166), Manual therapy (40170), Self-usp management (49867), Therapeutic activities (45628), Gait Training (81922), Patient/Family/Caregiver Education PLAN FOR NEXT VISIT: Assess [...] Mechanics TREATMENT: PT Treatment Interventions: Therapeutic Exercise, Self-Half-Way Management Evaluation Therapeutic Exercise: 1: *S/L Hip [...] facilitated with verbal, visual, and tactile cuing. Self-Half-Way Management: 1: Extended time spent rationalizing and [...] 904 Kole El, PT documented in this encounterBluffton Hospital02-02-2024 Miscellaneous Notes* Telephone Encounter - Jaquelin Mcgraw Ma - 03/24/2023 11:33 AM EST Patient called in and message from Dr. Cruz given. She verbalized understanding. documented in this encounterBluffton Hospital11-30-2023 History of Present illness Narrative* Amos Floyd MD - 01/19/2023 1:31 PM EST This note was created using [employer]. Subjective Linda Peralta is a 77 year [...] General Cardiology-Dr. Marte Nephrology- Dr. Jennifer Tarango Commercial Loan Reviewer- Dr. Carpio Endocrinology- Dr. Torsten Vann (osteoporosis), [...] Personalized prevention plan provided documented in this encounterBluffton Hospital11-29-2023 History of Present illness Narrative* Amy [...] 18, 2023 10:53 AM documented in this encounterBluffton Hospital10-30-2023 History of Present illness Narrative* Omar [...] 5.3 4.3 - 5.6 % Final Comment: [place] [employer] guidelines indicate that patients with [...] of hemorrhage) DVT (deep venous thrombosis) ([facility]) 03/23/2012 DVT of lower extremity (deep venous thrombosis) ([facility]) 03/27/09 Esophageal reflux Gallstones 03/06/2016 Hypercalcemia 03/19/2009 Hypertension NSTEMI (non-ST elevated myocardial infarction) ([facility]) April 27, 2009 Cardiac cath normal Other [...] W/COLLJ SPEC WHEN PFRMD 03/26/2010 Inpatient at [facility] ESOPHAGOGASTRODUODENOSCOPY TRANSORAL DIAGNOSTIC 02/2002 EGD ESOPHAGOGASTRODUODENOSCOPY [...] Up Julieta Avendano LPN documented in this encounterBluffton Hospital10-30-2023 Instructions* Patient Instructions* Omar Cruz - 12/19/2022 12:24 PM EDT Powerstep Original Full length. Can purchase at [employer] here in [place], [employer] in [place] or [place]. Also can find in [place] in [facility]. Powersteps can also be purchased online, [...] everything fits well together documented in this encounterBluffton Hospital10-13-2023 Miscellaneous Notes* Telephone Encounter - Kelley [...] notify patient. Kylah mcdermott documented in this encounterBluffton Hospital10-12-2023 History of Present illness Narrative* Marguerite [...] 01, 2022 11:40 AM documented in this encounterBluffton Hospital09-19-2023 History of Present illness Narrative* Jacinda Enriquez APRN.[employer]ATING - 11/08/2022 10:59 AM EDT This note was created using [employer]. Subjective Linda Peralta is a 77 year [...] history is provided by the patient. No public health epidemiologist was used. Pain (foot) Pain location: right [...] eczema, due to unspecified cause 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Lares's disease Cystocele, midline 07/23/2007 Diverticulosis of colon (without mention of hemorrhage) DVT (deep venous thrombosis) ([facility]) 03/23/2012 DVT of lower extremity (deep venous thrombosis) ([facility]) 03/27/09 Esophageal reflux Gallstones 03/06/2016 Hypercalcemia 03/19/2009 Hypertension NSTEMI (non-ST elevated myocardial infarction) ([facility]) April 27, 2009 Cardiac cath normal Other [...] W/COLLJ SPEC WHEN PFRMD 03/26/2010 Inpatient at [facility] ESOPHAGOGASTRODUODENOSCOPY TRANSORAL DIAGNOSTIC 02/2002 EGD ESOPHAGOGASTRODUODENOSCOPY [...] made at time of exam. Jacinda Enriquez APRN.ROOFER VINYL COATING documented in this encounterBluffton Hospital09-12-2023 History of Present illness Narrative* Kole [...] of Care: created on 11/01/22 through 01/01/23 [place] in home exercise program. Patient will decrease [...] Planned: 8 Planned Treatment Interventions: Therapeutic exercise (77040), Neuromuscular re- education (00014), Manual therapy (23992), Self-usp management (15381), Therapeutic activities (23831), Gait Training (78479), Patient/Family/Caregiver Education PLAN FOR NEXT VISIT: Muscle [...] PT Treatment Interventions: Therapeutic Exercise, Manual Therapy, Self-Half-Way Management Evaluation Therapeutic Exercise: 1: Supine Hip [...] Quads: Push to tolerance. 3: Manual [place] L Hip Distraction: Pull to patient tolerance. Skilled Intervention: Manual skills to improve joint mobility, ROM, and decrease pain. Utilized anatomy knowledge of the therapist, and assessment of patient's response to intervention. Self-Half-Way Management: 1: Education on anatomy & physiology [...] 09 Kole El PT documented in this encounterBluffton Hospital09-06-2023 History of Present illness Narrative* Marguerite [...] 26, 2022 2:40 PM documented in this encounterBluffton Hospital09-06-2023 History of Present illness Narrative* Amos [...] HIGH-DOSE) Amos Floyd MD documented in this encounterBluffton Hospital07-31-2023 Miscellaneous Notes* Telephone Encounter - Carla Howard RN - 09/19/2022 4:06 PM EDT [facility] 05/25/2022 * Telephone Encounter - Edda [...] notify patient. Edda Loya documented in this encounterBluffton Hospital06-07-2023 Miscellaneous Notes* Telephone Encounter - Sharon Pierre RN - 07/27/2022 2:31 PM EDT Returned call to [facility]- ICD code provided (L20.81) * Telephone Encounter - Faye Sung [facility] - 07/27/2022 1:27 PM EDT Specialty Pharmacy phoned requesting a ICD9 Code for ADBRY medication Please advise pharmacy using ref #[id number] Electronically signed by Faye Sung [facility] at 07/27/2022 1:29 PM EDT documented in this encounterBluffton Hospital06-02-2023 Miscellaneous Notes* Telephone Encounter - Sharon Pierre RN - 07/22/2022 1:07 PM EDT [facility] 05/2022 * Telephone Encounter - Vashti Avendano [facility] - 07/22/2022 10:20 AM EDT [facility] specialty pharmacy called and stated that they need a new script for the ADBRY sent to them. Please call [phone] or escribe fax at [phone] Electronically signed by Vashti Avendano [facility] at 07/22/2022 10:22 AM EDT documented in this encounterBluffton Hospital05-31-2023 History of Present illness Narrative* Rocio Johnson APRN.[employer] - 07/20/2022 10:03 AM EDT CC: Patient presents with: F/U 6 months HPI Linda Peralta is a 77 year old female who presents today for above. HTN/ASHD-[place] [facility]. Next follow-up in one week. 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 Managed by endocrinology. Prolia injections every 6 months. Atopic neurodermatitis- managed by F electric organ checker. Not responsive to current treatments. Startedon new medication called Manuel however her pharmacy has not received this yet. VTE- lifelong anticoagulation with Coumadin. INR's managed by food assembler kitchen. REVIEW OF SYSTEMS See HPI PAST MEDICAL HISTORY Diagnosis Date Anemia 08/26/2009 ASHD (arteriosclerotic heart disease) 04/25/2009 Asthma Benign neoplasm of colon 04/26/2005 Tubular adenoma Chronic diarrhea 03/15/2010 Chronic sphenoidal sinusitis 09/15/2003 Collagenous colitis 03/30/2010 Contact dermatitis and other eczema, due to unspecified cause 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Lares's disease Cystocele, midline 07/23/2007 Diverticulosis of colon (without mention of hemorrhage) DVT (deep venous thrombosis) ([facility]) 03/23/2012 DVT of lower extremity (deep venous thrombosis) ([facility]) 03/27/09 Esophageal reflux Gallstones 03/06/2016 Hypercalcemia 03/19/2009 Hypertension NSTEMI (non-ST elevated myocardial infarction) ([facility]) April 27, 2009 Cardiac cath normal Other [...] W/COLLJ SPEC WHEN PFRMD 03/26/2010 Inpatient at [facility] ESOPHAGOGASTRODUODENOSCOPY TRANSORAL DIAGNOSTIC 02/2002 EGD ESOPHAGOGASTRODUODENOSCOPY [...] patient asymptomatic at this time. Recommend calling food assembler kitchen office if continues - Continue current medication(s) [...] plan. Rocio Johnson APRN.CNP documented in this encounterBluffton Hospital04-05-2023 History of Present illness Narrative* Ryan [...] Past Histories independently gathered by the clinical field support engineer. documented in this encounterBluffton Hospital01-25-2023 Miscellaneous Notes* Telephone Encounter - Sharon Pierre RN - 03/16/2022 9:52 AM EST Received fax from [employer]- Prior authorization approval for Opzelura 1.5% cream. This authorization is good until 02/19/2023. Pharmacy notified. * Telephone Encounter - Sharon Pierre RN - 03/15/2022 2:16 PM EST Prior authorization requested for Opzelura 1.5% cream via [facility]. Will await determination documented in this encounterBluffton Hospital01-23-2023 Miscellaneous Notes* Telephone Encounter - Donald James RPh - 03/14/2022 1:[address] Gale, This was sent to our pharmacy, however this is something we do not service. Please sign this order to have it sent to patient's preferred pharmacy. Thank you Donald James, PharmD Clinical Pharmacist, Oncology [facility] P: ; F: Pool: P [facility] Pool #: [id number] documented in this encounterBluffton Hospital01-04-2023 History of Present illness Narrative* Ryan [...] Past Histories independently gathered by the clinical field support engineer. documented in this encounterBluffton Hospital10-31-2022 Instructions* Patient Instructions* Rocio Johnson APRN.CNP - 12/20/2021 9:17 AM EDT Please call the office after your follow-up with food assembler kitchen in January for an update on your blood pressure and if any medication changes were made documented in this encounterBluffton Hospital10-31-2022 History of Present illness Narrative* Rocio [...] of hemorrhage) DVT (deep venous thrombosis) ([facility]) 03/23/2012 DVT of lower extremity (deep venous thrombosis) ([facility]) 03/27/09 Esophageal reflux Gallstones 03/06/2016 Hypercalcemia 03/19/2009 [...] W/COLLJ SPEC WHEN PFRMD 03/26/2010 Inpatient at [facility] ESOPHAGOGASTRODUODENOSCOPY TRANSORAL DIAGNOSTIC 02/2002 EGD ESOPHAGOGASTRODUODENOSCOPY [...] seen: Cardiology-Dr. Marte Nephrology- Dr. Jennifer Tarango Commercial Loan Reviewer- Dr. Carpio Endocrinology- Dr. Torsten Vann (osteoporosis), [...] at this time. - Patient was counseled [id number] by myself (the billing provider) for the [...] YR Rocio Johnson APRN.CNP documented in this encounterBluffton Hospital10-19-2022 Miscellaneous Notes* Letter - Mammography Coordinator - 12/08/2021 2:02 PM EDT December 08, 2021 PID: [id number] Linda Peralta [address] [place] [address] Dear Ms. Peralta, We are pleased to [...] report will be kept [facility] as part of your permanent medical record and are available for your continuing care. Thank you for allowing us to help in meeting your health care needs. Sincerely, Dr. Madden Interpreting Radiologist [facility] (Normal over 40) documented in this encounterBluffton Hospital10-19-2022 History of Present illness Narrative* Echo [...] DATA: Not applicable SIGNED BY: Echo Light Mophie December 08, 2021 12:55 PM documented in this encounterBluffton Hospital10-17-2022 History of Present illness Narrative* Amos Floyd MD - 12/06/2021 3:07 PM EDT This note was created using [employer]. Subjective Linda Pearlta is a 76 year old female who [...] breast - ICD9: V76.12, ICD10: Z12.31 - [facility] SCREENING Amos Floyd MD documented in this encounterBluffton Hospital10-13-2022 Miscellaneous Notes* Telephone Encounter - Gifty [...] requesting refills as follows: last 07/20/21 , [facility] follow up 12/06/21 and medicare wellness 12/20/21 Requested Prescriptions Pending Prescriptions Disp Refills simvastatin (ZOCOR) 20 mg tablet 90 tablet 3 Sig: Take 1 tablet by mouth daily at bedtime. Please review and advise. Va Harris documented in this encounterBluffton Hospital10-06-2022 Instructions* Patient Instructions* Ryan Gale MD [...] CeraVe moisturizer as well. documented in this encounterBluffton Hospital10-06-2022 History of Present illness Narrative* Ryan [...] daily. dupilumab 300 mg/2 mL subcutaneous syringe (Gumhouse) Inject 300 mg SQ every 2 weeks [...] and Past Histories independentlygathered by the clinical field support engineer and the remaining scribed note accurately describes my personal service to the patient. Signature: Ryan Gale Date: 11/25/2021 Time: 10:54 PM documented in this encounterBluffton Hospital09-08-2022 History of Present illness Narrative* Luciana Zuniga RN - 10/28/2021 3:04 PM EDT [facility] Enrollment Provider Action/FYI: lvm x 1 and MC Patient referred by: PCC/PCP referral Contact made with patient: No - Left Message: Hi my name is Luciana Zuniga RN and I am calling from the [facility] on behalf of your PCP, Amos Floyd MD. We are excited to share with you a new program to help you manage your health. Please call me back at [phone] between the hours of 8am-5pm Monday-Monday. You will receive another phone call from me within the next two businessdays. I hope you can take the time to speak with me. (Keep encounter open and attempt 2nd outreachin two business days from today) END OUTREACH documented in this encounterBluffton Hospital08-25-2022 Miscellaneous Notes* Telephone Encounter - Milagros [...] return to express care. documented in this encounterBluffton Hospital08-24-2022 History of Present illness Narrative* Irene [...] eczema, due to unspecified cause 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Lares's disease Cystocele, midline 07/23/2007 Diverticulosis of colon (without mention of hemorrhage) DVT (deep venous thrombosis) ([facility]) 03/23/2012 DVT of lower extremity (deep venous thrombosis) ([facility]) 03/27/09 Esophageal reflux Gallstones 03/06/2016 Hypercalcemia 03/19/2009 Hypertension NSTEMI (non-ST elevated myocardial infarction) ([facility]) April 27, 2009 Cardiac cath normal Other [...] W/COLLJ SPEC WHEN PFRMD 03/26/2010 Inpatient at [facility] ESOPHAGOGASTRODUODENOSCOPY TRANSORAL DIAGNOSTIC 02/2002 EGD ESOPHAGOGASTRODUODENOSCOPY [...] illness Irene Mendenhall APRN.CNP documented in this encounterBluffton Hospital08-24-2022 Instructions* Patient Instructions* Irene Mendenhall APRN.CNP [...] Discussed expected course of illness Irene Mendenhall APRN.[employer] Beginning Home Isolation Isolation is used to [...] to your local emergency facility: Notify the mucking machine operator that you are seeking care for [...] or concerning to you. documented in this encounterBluffton Hospital07-06-2022 Instructions* Patient Instructions* Nevin Lee PA-C - 08/25/2021 1:44 PM EDT Images from the original note were not included. documented in this encounterBluffton Hospital07-06-2022 History of Present illness Narrative* Nevin [...] Past Histories independently gathered by the clinical field support engineer. Nevin Lee MS, RHIANNONC documented in this encounterBluffton Hospital05-31-2022 History of Present illness Narrative* Amos Floyd MD - 07/20/2021 9:15 AM EDT This note was created using [employer]. Subjective Linda Peralta is a 76 year [...] daily. dupilumab 300 mg/2 mL subcutaneous syringe (Gumhouse) Inject 300 mg SQ every 2 weeks [...] TOP) Amos Floyd MD documented in this encounterBluffton Hospital01-19-2017 History of Past illness Narrative* Problem [...] heparin, ASA, plavix 300, atorvastatin - plan [facility] tomorrow. Hypokalemia 04/09/2009 05/14/2009 Overview: -Replete. Other [...] of this encounter (statuses as of 07/20/2021) [facility] History of Past illness Narrative* Problem [...] heparin, ASA, plavix 300, atorvastatin - plan [facility] tomorrow. Hypokalemia 04/09/2009 05/14/2009 Overview: -Replete. Other [...] of this encounter (statuses as of 08/25/2021) [facility] History of Past illness Narrative* Problem [...] heparin, ASA, plavix 300, atorvastatin - plan [facility] tomorrow. Hypokalemia 04/09/2009 05/14/2009 Overview: -Replete. Other [...] of this encounter (statuses as of 10/13/2021) [facility] of Past illness Narrative* Problem [...] heparin, ASA, plavix 300, atorvastatin - plan [facility] tomorrow. Hypokalemia 04/09/2009 05/14/2009 Overview: -Replete. Other [...] of this encounter (statuses as of 10/14/2021) [facility] of Past illness Narrative* Problem [...] heparin, ASA, plavix 300, atorvastatin - plan [facility] tomorrow. Hypokalemia 04/09/2009 05/14/2009 Overview: -Replete. Other [...] of this encounter (statuses as of 10/28/2021) [facility] of Past illness Narrative* Problem [...] heparin, ASA, plavix 300, atorvastatin - plan [facility] tomorrow. Hypokalemia 04/09/2009 05/14/2009 Overview: -Replete. Other [...] of this encounter (statuses as of 11/26/2021) [facility] of [facility] illness Narrative* Problem [...] heparin, ASA, plavix 300, atorvastatin - plan [facility] tomorrow. Hypokalemia 04/09/2009 05/14/2009 Overview: -Replete. Other [...] of this encounter (statuses as of 12/03/2021) [facility] of [facility] illness Narrative* Problem [...] heparin, ASA, plavix 300, atorvastatin - plan [facility] tomorrow. Hypokalemia 04/09/2009 05/14/2009 Overview: -Replete. Other [...] of this encounter (statuses as of 12/06/2021) [facility] of [facility] illness Narrative* Problem [...] heparin, ASA, plavix 300, atorvastatin - plan [facility] tomorrow. Hypokalemia 04/09/2009 05/14/2009 Overview: -Replete. Other [...] of this encounter (statuses as of 12/09/2021) [facility] of [facility] illness Narrative* Problem [...] heparin, ASA, plavix 300, atorvastatin - plan [facility] tomorrow. Hypokalemia 04/09/2009 05/14/2009 Overview: -Replete. Other [...] of this encounter (statuses as of 12/10/2021) [facility] of [facility] illness Narrative* Problem [...] heparin, ASA, plavix 300, atorvastatin - plan [facility] tomorrow. Hypokalemia 04/09/2009 05/14/2009 Overview: -Replete. Other [...] of this encounter (statuses as of 12/20/2021) [facility] of Past illness Narrative* Problem [...] heparin, ASA, plavix 300, atorvastatin - plan [facility] tomorrow. Hypokalemia 04/09/2009 05/14/2009 Overview: -Replete. Other [...] of this encounter (statuses as of 02/25/2022) [facility] Narrative* Problem [...] heparin, ASA, plavix 300, atorvastatin - plan [facility] tomorrow. Hypokalemia 04/09/2009 05/14/2009 Overview: -Replete. Other [...] of this encounter (statuses as of 03/15/2022) [facility] Narrative* Problem [...] heparin, ASA, plavix 300, atorvastatin - plan [facility] tomorrow. Hypokalemia 04/09/2009 05/14/2009 Overview: -Replete. Other [...] of this encounter (statuses as of 03/16/2022) [facility] Narrative* Problem [...] heparin, ASA, plavix 300, atorvastatin - plan [facility] tomorrow. Hypokalemia 04/09/2009 05/14/2009 Overview: -Replete. Other [...] of this encounter (statuses as of 06/06/2022) [facility] Narrative* Problem [...] heparin, ASA, plavix 300, atorvastatin - plan [facility] tomorrow. Hypokalemia 04/09/2009 05/14/2009 Overview: -Replete. Other [...] of this encounter (statuses as of 07/20/2022) [facility] Narrative* Problem [...] heparin, ASA, plavix 300, atorvastatin - plan [facility] tomorrow. Hypokalemia 04/09/2009 05/14/2009 Overview: -Replete. Other [...] of this encounter (statuses as of 07/23/2022) [facility] Narrative* Problem [...] heparin, ASA, plavix 300, atorvastatin - plan [facility] tomorrow. Hypokalemia 04/09/2009 05/14/2009 Overview: -Replete. Other [...] of this encounter (statuses as of 07/27/2022) [facility] Narrative* Problem [...] heparin, ASA, plavix 300, atorvastatin - plan [facility] tomorrow. Hypokalemia 04/09/2009 05/14/2009 Overview: -Replete. Other [...] of this encounter (statuses as of 09/20/2022) [facility] Narrative* Problem [...] heparin, ASA, plavix 300, atorvastatin - plan [facility] tomorrow. Hypokalemia 04/09/2009 05/14/2009 Overview: -Replete. Other [...] of this encounter (statuses as of 10/27/2022) [facility] Narrative* Problem [...] heparin, ASA, plavix 300, atorvastatin - plan [facility] tomorrow. Hypokalemia 04/09/2009 05/14/2009 Overview: -Replete. Other [...] of this encounter (statuses as of 11/01/2022) [facility] Narrative* Problem [...] heparin, ASA, plavix 300, atorvastatin - plan [facility] tomorrow. Hypokalemia 04/09/2009 05/14/2009 Overview: -Replete. Other [...] of this encounter (statuses as of 11/08/2022) [facility] Narrative* Problem [...] heparin, ASA, plavix 300, atorvastatin - plan [facility] tomorrow. Hypokalemia 04/09/2009 05/14/2009 Overview: -Replete. Other [...] of this encounter (statuses as of 12/02/2022) [facility] Narrative* Problem [...] heparin, ASA, plavix 300, atorvastatin - plan [facility] tomorrow. Hypokalemia 04/09/2009 05/14/2009 Overview: -Replete. Other [...] of this encounter (statuses as of 12/19/2022) [facility] Narrative* Problem [...] heparin, ASA, plavix 300, atorvastatin - plan [facility] tomorrow. Hypokalemia 04/09/2009 05/14/2009 Overview: -Replete. Other [...] of this encounter (statuses as of 12/25/2022) [facility] Narrative* Problem [...] heparin, ASA, plavix 300, atorvastatin - plan [facility] tomorrow. Hypokalemia 04/09/2009 05/14/2009 Overview: -Replete. Other [...] of this encounter (statuses as of 01/19/2023) [facility] Narrative* Problem [...] heparin, ASA, plavix 300, atorvastatin - plan [facility] tomorrow. Hypokalemia 04/09/2009 05/14/2009 Overview: -Replete. Other [...] of this encounter (statuses as of 01/19/2023) [facility] Narrative* Problem [...] heparin, ASA, plavix 300, atorvastatin - plan [facility] tomorrow. Hypokalemia 04/09/2009 05/14/2009 Overview: -Replete. Other [...] of this encounter (statuses as of 03/24/2023) [facility] Narrative* Problem [...] heparin, ASA, plavix 300, atorvastatin - plan [facility] tomorrow. Hypokalemia 04/09/2009 05/14/2009 Overview: -Replete. Other [...] of this encounter (statuses as of 03/28/2023) [facility] Narrative* Problem [...] heparin, ASA, plavix 300, atorvastatin - plan [facility] tomorrow. Hypokalemia 04/09/2009 05/14/2009 Overview: -Replete. Other [...] of this encounter (statuses as of 04/03/2023) [facility] Narrative* Problem [...] heparin, ASA, plavix 300, atorvastatin - plan [facility] tomorrow. Hypokalemia 04/09/2009 05/14/2009 Overview: -Replete. Other [...] of this encounter (statuses as of 04/11/2023) [facility] Narrative* Problem [...] heparin, ASA, plavix 300, atorvastatin - plan [facility] tomorrow. Hypokalemia 04/09/2009 05/14/2009 Overview: -Replete. Other [...] of this encounter (statuses as of 05/02/2023) [facility] Narrative* Problem [...] heparin, ASA, plavix 300, atorvastatin - plan [facility] tomorrow. Hypokalemia 04/09/2009 05/14/2009 Overview: -Replete. Other [...] of this encounter (statuses as of 05/09/2023) [facility] Narrative* Problem [...] heparin, ASA, plavix 300, atorvastatin - plan [facility] tomorrow. Hypokalemia 04/09/2009 05/14/2009 Overview: -Replete. Other [...] of this encounter (statuses as of 05/15/2023) [facility] Narrative* Problem [...] heparin, ASA, plavix 300, atorvastatin - plan [facility] tomorrow. Hypokalemia 04/09/2009 05/14/2009 Overview: -Replete. Other [...] of this encounter (statuses as of 05/23/2023) [facility] Narrative* Problem [...] heparin, ASA, plavix 300, atorvastatin - plan [facility] tomorrow. Hypokalemia 04/09/2009 05/14/2009 Overview: -Replete. Other [...] of this encounter (statuses as of 05/23/2023) [facility] Narrative* Problem [...] heparin, ASA, plavix 300, atorvastatin - plan [facility] tomorrow. Hypokalemia 04/09/2009 05/14/2009 Overview: -Replete. Other [...] of this encounter (statuses as of 05/24/2023) [facility] Narrative* Problem [...] heparin, ASA, plavix 300, atorvastatin - plan [facility] tomorrow. Hypokalemia 04/09/2009 05/14/2009 Overview: -Replete. Other [...] of this encounter (statuses as of 05/25/2023) [facility] Narrative* Problem [...] heparin, ASA, plavix 300, atorvastatin - plan [facility] tomorrow. Hypokalemia 04/09/2009 05/14/2009 Overview: -Replete. Other [...] of this encounter (statuses as of 06/01/2023) [facility] Narrative* Problem [...] heparin, ASA, plavix 300, atorvastatin - plan [facility] tomorrow. Hypokalemia 04/09/2009 05/14/2009 Overview: -Replete. Other [...] of this encounter (statuses as of 06/01/2023) [facility] Narrative* Problem [...] heparin, ASA, plavix 300, atorvastatin - plan [facility] tomorrow. Hypokalemia 04/09/2009 05/14/2009 Overview: -Replete. Other [...] of this encounter (statuses as of 06/01/2023) [facility] Narrative* Problem [...] heparin, ASA, plavix 300, atorvastatin - plan [facility] tomorrow. Hypokalemia 04/09/2009 05/14/2009 Overview: -Replete. Other [...] of this encounter (statuses as of 06/09/2023) [facility] Narrative* Problem [...] heparin, ASA, plavix 300, atorvastatin - plan [facility] tomorrow. Hypokalemia 04/09/2009 05/14/2009 Overview: -Replete. Other [...] of this encounter (statuses as of 06/12/2023) [facility] Evaluation note* Diagnosis Onset Date Resolution Status Essential (primary) hypertension chronic History of pulmonary embolism chronic Hyperlipidemia chronic History of non-ST elevation myocardial infarction (NSTEMI) April, resolved [facility] Work Phone: Discharge summary Author Jairo Mitchell [facility] Note Date/Time August 09, 2024 2:56 pm [facility] Medical Records Department [address] [place] [address] Discharge Summary 08/09/24 1437 MR#: [id number] Acct: [id number] Name: LINDA PERALTA Rep #:[id number] : [id number] 79 From: Jairo Mitchell DO PCP: Dr. 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 Jairo Mitchell DO; Dr. Amos Floyd MD~ Signed [facility] Work Phone: evaluation note* Diagnosis Onset Date Resolution Status Chest pain acute Essential (primary) hypertension acute History of pulmonary embolism chronic Hyperlipidemia [facility] Work Phone: evaluation note* Diagnosis Adrenal hypofunction (HCC)- Primary Glucocorticoid deficiency Primary hypertension Unspecified essential hypertension ASHD (arteriosclerotic heart disease) Coronary atherosclerosis of unspecified type of vessel, [place] or graft Hip pain Pain in joint, pelvic region and thigh Need for COVID-19 vaccine [facility] Diagnosis Onset Date Resolution Status Chest pain acute Essential (primary) hypertension chronic History of pulmonary embolism chronic Hyperlipidemia chronic Essential (primary) hypertension chronic History of pulmonary embolism chronic Hyperlipidemia [facility] Work Phone: Evaluation note* Diagnosis Onset Date Resolution Status Essential (primary) hypertension chronic History of pulmonary embolism chronic Hyperlipidemia [facility] Work Phone: Evaluation note* Diagnosis Atopic neurodermatitis- Primary Other atopic dermatitis and related conditions [facility] Diagnosis Suspected COVID-19 virus infection- Primary [facility] Diagnosis Stage 3b chronic kidney disease (HCC)- Primary [facility] Diagnosis Onset Date Resolution Status ANGELA (acute kidney injury) [place] Elevated troponin acute Hypotension acute Lares disease chronic Chronic kidney disease chron ic [facility] Work Phone: Evaluation note* Diagnosis Onset Date Resolution Status Moris disease acute ANGELA (acute kidney injury) [place] Elevated troponin acute Hypotension acute Chronic kidney disease chron ic Chronic kidney disease, stage 3 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 chronic [facility] Work Phone: Evaluation note* Diagnosis Atopic neurodermatitis- Primary Other atopic dermatitis and related conditions documented in this encounter [facility] note* Diagnosis Onset Date Resolution Status ANGELA (acute kidney injury) re solved Elevated troponin resolved Hypotension resolved [facility] Work Phone: Evaluation note* Diagnosis Pure hypercholesterolemia documented in this encounter [facility] note* Diagnosis Hypotension due to hypovolemia- Primary Elevated troponin Other abnormal blood chemistry Acute kidney injury (HCC) Acute kidney failure, unspecified Stage 3b chronic kidney disease (HCC) Hypercalcemia Anticoagulated on Coumadin Encounter for therapeutic drug monitoring Breast pain, left Mastodynia Encounter for screening mammogram for malignant neoplasm of breast Other screening mammogram documented in this encounter [facility] note* Diagnosis Encounter for screening mammogram for malignant neoplasm of breast Other screening mammogram documented in this encounter [facility] note* Diagnosis Medicare annual wellness visit, subsequent- Primary Routine general medical examination at a [facility] care [facility] Hypertension, unspecified type Pure hypercholesterolemia Encounter for immunization Need for other specified prophylactic vaccination against single bacterial disease documented in this encounter [facility] note* Diagnosis Onset Date Resolution Status Lares disease acute ANGELA (acute kidney injury) re solved Elevated troponin resolved Hypotension resolved Moris disease acute Osteoporosis acute Essential (primary) hypertension chronic History of pulmonary embolism chronic Hyperlipidemia chronic History of non-ST elevation myocardial infarction (NSTEMI) April, resolved [facility] Work Phone: Evaluation note* Diagnosis Onset Date Resolution Status Moris disease acute ANGELA (acute kidney injury) re solved Elevated troponin resolved Hypotension resolved Lares disease acute Osteoporosis acute Essential (primary) hypertension chronic History of pulmonary embolism chronic Hyperlipidemia chronic History of non-ST elevation myocardial infarction (NSTEMI) April, resolved Essential (primary) hypertension chronic History of pulmonary embolism chronic Hyperlipidemia chronic History of non-ST elevation myocardial infarction (NSTEMI) April, resolved [facility] Work Phone: Evaluation note* Diagnosis Atopic neurodermatitis- Primary Other atopic dermatitis and related conditions documented in this encounter [facility] note* Diagnosis Atopic neurodermatitis Other atopic dermatitis and related conditions [facility] Diagnosis Onset Date Resolution Status Moris disease acute Osteoporosis acute Essential (primary) hypertension chronic History of pulmonary embolism chronic Hyperlipidemia chronic History of non-ST elevation myocardial infarction (NSTEMI) April, resolved Essential (primary) hypertension chronic History of pulmonary embolism chronic Hyperlipidemia chronic History of non-ST elevation myocardial infarction (NSTEMI) April, resolved [facility] Work Phone: evaluation noteNo assessment information available [facility] Work Phone: Evaluation note* Diagnosis Primary hypertension- Primary Unspecified essential hypertension Pure hypercholesterolemia Stage 3b chronic kidney disease (HCC) ASHD (arteriosclerotic heart disease) Coronary atherosclerosis of unspecified type of vessel, [place] or graft Osteopenia, unspecified location documented in this encounter [facility] note* Diagnosis Onset Date Resolution Status Aortic stenosis acute MVP (mitral valve prolapse) acute Chronic kidney disease, stage 3 chronic Essential (primary) hypertension chronic History of pulmonary embolism chronic Hyperlipidemia chronic History of non-ST elevation myocardial infarction (NSTEMI) April, resolved [facility] Work Phone: Evaluation note* Diagnosis Hip pain, unspecified laterality- Primary Stage 3b chronic kidney disease (HCC) Deep vein thrombosis (DVT) of lower extremity, unspecified chronicity, unspecified laterality, unspecified vein (HCC) Need for influenza vaccination Need for prophylactic vaccination and inoculation against influenza [facility]* Diagnosis Hip pain, unspecified laterality [M25.559]- Primary [facility]* Diagnosis Foot pain, right- Primary Pain in limb Closed fracture of right foot, initial encounter [facility] Diagnosis Pure hypercholesterolemia [facility] Diagnosis Closed displaced fracture of fifth metatarsal bone of right foot, initial encounter- Primary documented in this encounter [facility] note* Diagnosis Onset Date Resolution Status Lares disease chronic Osteoporosis chronic [facility] Work Phone: Evaluation note* Diagnosis Closed displaced fracture of fifth metatarsal bone of right foot, initial encounter [facility] Diagnosis Closed displaced fracture of fifth metatarsal bone of right foot, initial encounter [facility] Diagnosis Closed displaced fracture of fifth metatarsal bone of right foot, initial encounter [facility] Diagnosis Medicare annual wellness visit, [...] COVID-19 vaccine Hypercalcemia [facility] Diagnosis Onset Date Resolution Status Lares disease chronic Osteoporosis chronic Aortic stenosis acute Dizziness acute MVP (mitral valve prolapse) acute Chronic kidney disease, stage 3 chronic Essential (primary) hypertension chronic History of pulmonary embolism chronic Hyperlipidemia chronic History of non-ST elevation myocardial infarction (NSTEMI) April, resolved [facility] Work Phone: Evaluation note* Diagnosis Gait abnormality- Primary Abnormality of gait Hip pain, unspecified laterality Closed displaced fracture of fifth metatarsal bone of right foot with delayed healing, subsequent encounter [facility] Diagnosis Gait abnormality- Primary Abnormality of gait Hip pain, unspecified laterality Closed displaced fracture of fifth metatarsal bone of right foot with delayed healing, subsequent encounter [facility] Diagnosis Onset Date Resolution Status Aortic stenosis acute Dizziness acute MVP (mitral valve prolapse) acute Chronic kidney disease, stage 3 chronic Essential (primary) hypertension chronic History of pulmonary embolism chronic Hyperlipidemia chronic History of non-ST elevation myocardial infarction (NSTEMI) April, resolved [facility] Work Phone: Evaluation note* Diagnosis Gait abnormality- Primary Abnormality of gait Hip pain, unspecified laterality Closed displaced fracture of fifth metatarsal bone of right foot with delayed healing, subsequent encounter [facility] Diagnosis Hypercalcemia- Primary [facility] Diagnosis Hypercalcemia- Primary Fatigue, unspecified type Urinary frequency Myalgias Confusion Unspecified psychosis Weakness Other malaise and fatigue [facility] Diagnosis Hypercalcemia- Primary Moris's disease (CMS/HCC) Glucocorticoid deficiency Anemia in chronic kidney disease Chronic kidney disease Chronic kidney disease, unspecified Generalized muscle weakness Muscle weakness (generalized) Hypertensive kidney disease with stage 3b chronic kidney disease (CMS/HCC) Urinary tract infection, site not specified documented in this encounter [facility] Work Phone: Evaluation note* Diagnosis Physical deconditioning- Primary Debility, unspecified Muscle weakness Muscle weakness (generalized) Gait abnormality Abnormality of gait [facility]* Diagnosis Other specified hypotension- Primary Lares's disease (HCC) Glucocorticoid deficiency Hypercalcemia [facility]* Diagnosis Gait abnormality- Primary Abnormality of gait Physical deconditioning Debility, unspecified Weakness Other malaise and fatigue [facility]* Diagnosis Physical deconditioning- Primary Debility, unspecified Gait abnormality Abnormality of gait Muscle weakness Muscle weakness (generalized) documented [facility]* Diagnosis Physical deconditioning- Primary Debility, unspecified Gait abnormality Abnormality of gait Weakness Other malaise and fatigue [facility]* Diagnosis Physical deconditioning- Primary Debility, unspecified Gait abnormality Abnormality of gait Weakness Other malaise and fatigue [facility]* Diagnosis Hypercalcemia- Primary Age-related osteoporosis with current pathological fracture with routine healing Aftercare for healing pathologic fracture of other bone Hypokalemia Hypopotassemia Adrenal hypofunction (HCC) Glucocorticoid deficiency NSTEMI (non-ST elevated myocardial infarction) (HCC) Acute myocardial infarction, subendocardial infarction, episode of care unspecified ASHD (arteriosclerotic heart disease) Coronary atherosclerosis of unspecified type of vessel, [place] or graft Nonrheumatic aortic valve stenosis Aortic valve disorders [facility]* Diagnosis Physical deconditioning- Primary Debility, unspecified Gait abnormality Abnormality of gait Weakness Other malaise and fatigue [facility]* Diagnosis Physical deconditioning- Primary Debility, unspecified Gait abnormality Abnormality of gait Weakness Other malaise and fatigue [facility]* Diagnosis Primary hypertension- Primary Unspecified essential hypertension Hypercalcemia Adrenal hypofunction (HCC) Glucocorticoid deficiency Nonrheumatic aortic valve stenosis Aortic valve disorders [facility]* Diagnosis Abnormal finding of diagnostic imaging- Primary Other nonspecific (abnormal) findings on radiological and other examinations of body structure [facility]* Diagnosis Physical deconditioning- Primary Debility, unspecified Gait abnormality Abnormality of gait Weakness Other malaise and fatigue [facility]* Diagnosis Physical deconditioning- Primary Debility, unspecified Gait abnormality Abnormality of gait Weakness Other malaise and fatigue [facility]* Diagnosis Physical deconditioning- Primary Debility, unspecified Gait abnormality Abnormality of gait Weakness Other malaise and fatigue [facility]* Diagnosis Foot pain, right Pain in limb [facility]* Diagnosis Hip pain, unspecified laterality [facility]* Diagnosis Age-related osteoporosis with current pathological fracture with routine healing- Primary Aftercare for healing pathologic fracture of other bone Hypercalcemia Adrenal hypofunction (HCC) Glucocorticoid deficiency [facility]* Diagnosis Pure hypercholesterolemia [facility]* Diagnosis Age-related osteoporosis with current pathological fracture with routine healing- Primary Aftercare for healing pathologic fracture of other bone [facility]* Diagnosis Age-related osteoporosis with current pathological fracture with routine healing- Primary Aftercare for healing pathologic fracture of other bone [facility]* Diagnosis Abnormal finding of diagnostic imaging- Primary Other nonspecific (abnormal) findings on radiological and other examinations of body structure [facility]* Diagnosis Abnormal finding of diagnostic imaging- Primary Other nonspecific (abnormal) findings on radiological and other examinations of body structure [facility]* Diagnosis Abnormal finding of diagnostic imaging Other nonspecific (abnormal) findings on radiological and other examinations of body structure [facility]* Diagnosis Age-related osteoporosis with current pathological fracture with routine healing- Primary Aftercare for healing pathologic fracture of other bone [facility]* Diagnosis Nodule of lower lobe of right lung needing follor up CT- Primary [facility]* Diagnosis Medicare annual wellness [...] Coronary atherosclerosis of unspecified type of vessel, [place] or graft Primary hypertension Unspecified essential hypertension [...] valve disorders [facility] Diagnosis Nonrheumatic aortic valve stenosis- Primary [facility]* Diagnosis Recurrent UTI- Primary Urinary tract infection, site not specified documented in this encounter [facility] note* Diagnosis Aortic valve stenosis, etiology of cardiac valve disease unspecified- Primary Deep vein thrombosis (DVT) of proximal vein of both lower extremities, unspecified chronicity (HCC) Acute systolic heart failure (HCC) Acute systolic heart failure Lares's disease (HCC) Glucocorticoid deficiency Renal insufficiency Unspecified disorder of kidney and ureter Recurrent UTI Urinary tract infection, site not specified [facility]* Diagnosis Nonrheumatic aortic valve stenosis [facility]* Diagnosis Recurrent UTI- Primary Urinary tract infection, site not specified History of kidney stones Personal history of urinary calculi documented in this encounter [facility] note* Diagnosis Aortic valve stenosis, etiology of cardiac valve disease unspecified- Primary Deep vein thrombosis (DVT) of proximal vein of both lower extremities, unspecified chronicity (HCC) Acute systolic heart failure (HCC) Acute systolic heart failure Moris's disease (HCC) Glucocorticoid deficiency Renal insufficiency Unspecified disorder of kidney and ureter Recurrent UTI Urinary tract infection, site not specified [facility]* Diagnosis Renal insufficiency- Primary Unspecified disorder of kidney and ureter [facility] Diagnosis Renal insufficiency- Primary Unspecified disorder of kidney and ureter [facility] Diagnosis Renal insufficiency- Primary Unspecified disorder of kidney and ureter [facility] Diagnosis Renal insufficiency- Primary Unspecified disorder of kidney and ureter [facility] Diagnosis Severe aortic stenosis- Primary Aortic valve disorders Severe aortic stenosis- Primary Aortic valve disorders Stage 3 chronic kidney disease, unspecified whether stage 3a or 3b CKD (HCC) Acute deep vein thrombosis (DVT) of right lower extremity, unspecified vein (HCC) Acute systolic heart failure (HCC) Acute systolic heart failure Moris's disease (HCC) Glucocorticoid deficiency [facility] Diagnosis Severe aortic stenosis- Primary Aortic valve disorders Severe aortic stenosis- Primary Aortic valve disorders Severe aortic stenosis Aortic valve disorders [facility] Diagnosis Nonrheumatic aortic valve stenosis- Primary documented in this encounter [facility] note* Diagnosis Severe aortic stenosis- Primary Aortic valve disorders Severe aortic stenosis Aortic valve disorders Aortic valve stenosis, etiology of cardiac valve disease unspecified Syncope and collapse Severe aortic stenosis Aortic valve disorders documented in this encounter [facility] note* Diagnosis Severe aortic stenosis- Primary Aortic valve disorders documented in this encounter [facility] note* Diagnosis S/p TAVR (transcatheter aortic valve replacement), bioprosthetic- Primary Pure hypercholesterolemia Encounter for immunization Need for other specified prophylactic vaccination against single bacterial disease Stage 3b chronic kidney disease (HCC) Hypertensive kidney disease with stage 3b chronic kidney disease (HCC) Nonrheumatic aortic valve stenosis Aortic valve disorders documented in this encounter [facility] note* Diagnosis Severe aortic stenosis- Primary Aortic valve disorders Stage 3b chronic kidney disease (HCC) Lares's disease (HCC) Glucocorticoid deficiency Chronic systolic heart failure (HCC) Chronic systolic heart failure Deep vein thrombosis (DVT) of proximal vein of both lower extremities, unspecified chronicity (HCC) documented in this encounter [facility] note* Diagnosis Severe aortic stenosis- Primary Aortic valve disorders documented in this encounter [facility] note* Diagnosis Severe aortic stenosis- Primary Aortic valve disorders documented in this encounter [facility] note* Diagnosis Chronic systolic heart failure (HCC)- Primary Chronic systolic heart failure S/P TAVR (transcatheter aortic valve replacement) Deep vein thrombosis (DVT) of proximal vein of both lower extremities, unspecified chronicity (HCC) Stage 3b chronic kidney disease (CMS/HCC) Moris's disease (HCC) Glucocorticoid deficiency documented in this encounter [facility] note* Diagnosis Severe aortic stenosis Aortic valve disorders documented in this encounter [facility] note* Diagnosis Chronic systolic heart failure (HCC)- Primary Chronic systolic heart failure S/P TAVR (transcatheter aortic valve replacement) Deep vein thrombosis (DVT) of proximal vein of both lower extremities, unspecified chronicity (HCC) Stage 3b chronic kidney disease (CMS/HCC) Lares's disease (HCC) Glucocorticoid deficiency documented in this encounter [facility] Discharge instructionsAmbulatory Orders* Phase II, Outpatient Cardiac Rehab Location: None Selected [facility] Work Phone: Progress note Author Jordan Marte [facility] Note Date/Time November 14, 2024 9:32am [facility] [address] [place] [address] OFFICE VISIT Date of Service: 11/14/24 MR#: [id number] Acct: [id number] Name: LINDA PERALTA Rep #: [id number] Provider: Dr. 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 Accompanied by: Daughter Is patient in pain?: No Allergies ciprofloxacin (From Cipro) Allergy (Verified 11/14/24 09:05) Rash Penicillins Allergy (Verified 11/14/24 09:05) Rash Medications ?Medication ?Instructions ?Recorded ?Confirmed ?Type acetaminophen 500 mg tablet 1,000 mg (2 x 500 mg) PO Q 6H PRN 04/08/20 11/14/24 Rx Pain Score 1-10 denosumab 60 mg/mL subcutaneous 60 mg subcut [id number] #1 mL 11/24/22 11/14/24 Rx syringe (Prolia) [...] (BMI 25.0-29.9) Aortic stenosis Aortic stenosis, severe Lares's disease MVP (mitral valve prolapse) Aortic stenosis Hypokalemia Elevated serum creatinine Acute prerenal azotemia History of kidney cancer Chronic kidney disease Hypercalcemia Frequent falls Closed head injury (03/20/20) Hypoglycemia (03/20/20) Acute electrocardiogram changes Atopic dermatitis Osteopenia determined by x-ray History of pulmonary embolism 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 Echocardiogram 06/12/2023?[facility]: Left ventricle is normal in size. There [...] does follow with nephrology for this. 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 Amos Floyd MD ~ [facility] [employer] Work Phone: [employer] for referral (narrative)* Diagnostic Procedure Only (Routine) - Authorized Specialty Diagnoses / Procedures Referred By Contac dana Referred To Contact BR IMAGING Diagnoses Encounter for screening mammogram for malignant neoplasm of breast Procedures TAE SCREENING SCREENING MAMMOGRAPHY BI 2-VIEW BREAST INC Amos Higgins MD [facility] [place] [id number] Br Imaging [facility] SystemsJULIE [place]IL[place] [id number] Referral ID Status Reason Start Date Expiration Date Visits Requested Visits Authorized [id number] Authorized Auto-Generat ed Referral 01/05/2023 1 1 [facility] for referral (narrative)* Diagnostic Procedure Only (Routine) - Closed Specialty Diagnoses / Procedures Referred By Contac Referred To Contact BR IMAGING Diagnoses Encounter for screening mammogram for malignant neoplasm of breast Procedures TAE SCREENING SCREENING MAMMOGRAPHY BI 2-VIEW BREAST INC Amos Higgins MD [address] [place] [address] Br Imaging [email or web address] [place] [id number] Referral ID Status Reason Start Date Expiration Date V isits Requested Visits Authorized [id number] Closed Auto-Generate d Referral 12/06/2021 01/05/2023 1 1 [facility] for referral (narrative)* Diagnostic Procedure Only (Routine) - Pending Review Specialty Diagnoses / Procedures Referred By Contac t Referred To Contact XR IMAGING Diagnoses Closed displaced fracture of fifth metatarsal bone of right foot, initial encounter Procedures XR FOOT GENERAL 3V AP/LAT/OBL RIGHT RADEX FOOT COMPLETE MINIMUM 3 VIEWS Omar [address] [place] [address] [place] [address] Referral ID Status Reason Start Date Expiration Date Visits Requested Visits Authorized [id number] Pending Review Auto-Generat ed Referral 01/18/2024 1 1 [facility] for referral (narrative)* Diagnostic Procedure Only (Routine) - Closed Specialty Diagnoses / Procedures Referred By Contac t Referred To Contact XR IMAGING Diagnoses Closed displaced fracture of fifth metatarsal bone of right foot, initial encounter Procedures XR FOOT GENERAL 3V AP/LAT/OBL RIGHT RADEX FOOT COMPLETE MINIMUM 3 [place] [address] [place] [address] Referral ID Status Reason Start Date Expiration Date V isits Requested Visits Authorized [id number] Closed Auto-Generate d Referral 12/17/2022 12/17/2023 1 1 [facility] for referral (narrative)* Diagnostic Procedure Only (Routine) - Closed Specialty Diagnoses / Procedures Referred By Contac t Referred To Contact XR IMAGING Diagnoses Closed displaced fracture of fifth metatarsal bone of right foot, initial encounter Procedures XR FOOT GENERAL 3V AP/LAT/OBL RIGHT RADEX FOOT COMPLETE MINIMUM 3 VIEWS Omar Cruz[address] [place] [address] [place] [address] Referral ID Status Reason Start Date Expiration Date V isits Requested Visits Authorized [id number] Closed Auto-Generate d Referral 11/17/2022 12/17/2023 1 1 [facility] for referral (narrative)* Diagnostic Procedure Only (Urgent) - Closed Specialty Diagnoses / Procedures Referred By Contac t Referred To Contact XR IMAGING Diagnoses Foot pain, right Procedures XR FOOT GENERAL 3V AP/LAT/OBL RIGHT RADEX FOOT COMPLETE MINIMUM 3 VIEWS Jacinda Enriquez APRN.TELLY [address] [place] [address] [place] [address] Referral ID Status Reason Start Date Expiration Date V isits Requested Visits Authorized [id number] Closed Auto-Generate d Referral 11/08/2022 12/08/2023 1 1 [facility] for referral (narrative)* Diagnostic Procedure Only (Routine) - Closed Specialty Diagnoses / Procedures Referred By Contac t Referred To Contact XR IMAGING Diagnoses Hip pain, unspecified laterality Procedures XR HIP BILATERAL 5V PEL/AP/LAT EACH HIP RADEX HIPS BILATERAL WITH PELVIS MINIMUM 5 VIEWS Amos Floyd MD [address] [place] [address] [place] [address] Referral ID Status Reason Start Date Expiration Date V isits Requested Visits Authorized [id number] Closed Auto-Generate d Referral 10/26/2022 11/25/2023 1 1 [facility] for referral (narrative)* Diagnostic Procedure Only (Routine) - New Request Specialty Diagnoses / Procedures Referred By Contac t Referred To Contact XR IMAGING Diagnoses Age-related osteoporosis with current pathological fracture with routine healing Procedures DXA-AXIAL SKELETON DXA BONE DENSITY STUDY 1/> SITES AXIAL SKAmos Quick MD [address] [place] [address] [place] [address] Referral ID Status Reason Start Date Expiration Date Visits Requested Visits Authorized [id number] New Request Auto-Generat ed Referral 12/29/2024 1 1 [facility] for referral (narrative)No reason for referral information availableWMedina [facility] Work Phone: Reason for visit Narrative* Diagnostic Procedure Only (Routine) - Closed Specialty Diagnoses / Procedures Referred By Contac t Referred To Contact BR IMAGING Diagnoses Encounter for screening mammogram for malignant neoplasm of breast Procedures TAE SCREENING SCREENING MAMMOGRAPHY BI 2-VIEW BREAST INC CAD Amos Floyd MD [address] [place] [address] Br Imaging [address] [address] Referral ID Status Reason Start Date Expiration Date V isits Requested Visits Authorized [id number] Closed Auto-Generate d Referral 12/06/2021 01/05/2023 1 1 [facility] for visit Narrative* Diagnostic Procedure Only (Routine) - Closed Specialty Diagnoses / Procedures Referred By Contac t Referred To Contact XR IMAGING Diagnoses Closed displaced fracture of fifth metatarsal bone of right foot, initial encounter Procedures XR FOOT GENERAL 3V AP/LAT/OBL RIGHT RADEX FOOT COMPLETE MINIMUM 3 VIEWS TestOmar suazo [address] [place] [address] [place] [address] Referral ID Status Reason Start Date Expiration Date V isits Requested Visits Authorized [id number] Closed Auto-Generate d Referral 12/17/2022 12/17/2023 1 1 [facility] for visit Narrative* Diagnostic Procedure Only (Routine) - Closed Specialty Diagnoses / Procedures Referred By Contac t Referred To Contact XR IMAGING Diagnoses Closed displaced fracture of fifth metatarsal bone of right foot, initial encounter Procedures XR FOOT GENERAL 3V AP/LAT/OBL RIGHT RADEX FOOT COMPLETE MINIMUM 3 VIEWS TestraOmar bernardo [address] [place] [address] [place] [address] Referral ID Status Reason Start Date Expiration Date V isits Requested Visits Authorized [id number] Closed Auto-Generate d Referral 11/17/2022 12/17/2023 1 1 [facility] for visit Narrative* Diagnostic Procedure Only (Routine) - Closed Specialty Diagnoses / Procedures Referred By Contac t Referred To Contact XR IMAGING Diagnoses Closed displaced fracture of fifth metatarsal bone of right foot, initial encounter Procedures XR FOOT GENERAL 3V AP/LAT/OBL RIGHT RADEX FOOT COMPLETE MINIMUM 3 VIEWS Jaycelakeisha Omar [address] [place] [address] [place] [address] Referral ID Status Reason Start Date Expiration Date V isits Requested Visits Authorized [id number] Closed Auto-Generate d Referral 12/19/2022 01/18/2024 1 1 [facility] for visit Narrative* Diagnostic Procedure Only (Urgent) - Closed Specialty Diagnoses / Procedures Referred By Contac t Referred To Contact XR IMAGING Diagnoses Foot pain, right Procedures XR FOOT GENERAL 3V AP/LAT/OBL RIGHT RADEX FOOT COMPLETE MINIMUM 3 VIEWS Jacinda Enriquez APRN.[employer] [address] [place] [address] [place] [address] Referral ID Status Reason Start Date Expiration Date V isits Requested Visits Authorized [id number] Closed Auto-Generate d Referral 11/08/2022 12/08/2023 1 1 [facility] for visit Narrative* Diagnostic Procedure Only (Routine) - Closed Specialty Diagnoses / Procedures Referred By Contac t Referred To Contact XR IMAGING Diagnoses Hip pain, unspecified laterality Procedures XR HIP BILATERAL 5V PEL/AP/LAT EACH HIP RADEX HIPS BILATERAL WITH PELVIS MINIMUM 5 VIEWS Amos Floyd MD [address] [place] [address] [place] [address] Referral ID Status Reason Start Date Expiration Date V isits Requested Visits Authorized [id number] Closed Auto-Generate d Referral 10/26/2022 11/25/2023 1 1 [facility] for visit Narrative* Imaging (Routine) - Closed Specialty Diagnoses / Procedures Referred By Contac t Referred To Contact Radiology Diagnoses Nonrheumatic aortic valve stenosis Procedures CTA Angiogram TAVR Dylon Gupta APRN - [employer] [address] [place] [address] Phone: tel: fax: Referral ID Status Reason Start Date Expiration Date Visits Re quested Visits Authorized [id number] Closed 09/03/2024 09/03/2025 1 1 [facility] N[facility]* Auth/Cert (Routine) Specialty Diagnoses / Procedures Referred By Fransico Referred To Contact Diagnoses Severe aortic stenosis Procedures TRANSCATHETER AORTIC VALVE REPLACEMENT, TRANSTHORACIC ECHOCARDIOGRAM TRANSCATHETER AORTIC VALVE REPLACEMENT, TRANSTHORACIC ECHOCARDIOGRAM Memo Canas MD [address] [place] [address] Phone: tel: fax: [facility] OR [address] [place] [address] Phone: tel: Referral ID Status Reason Start Date Expiration Date Visits Re quested Visits Authorized 1 1 [facility] N[facility]ative* Imaging (Routine) - Closed Specialty Diagnoses / Procedures [facility] Referred To Contact Cardiology Diagnoses Severe aortic stenosis Procedures Transthoracic echocardiogram (TTE) complete with contrast, bubble, strain, and 3D PRN ID ECHO TTHRC R-T 2D W/WOM-MODE COMPL SPEC&COLR D ID TTE W OR WO FOL WCON,DOPPLER Dylon Gupta, [place] [address] Phone: tel: fax: Referral ID Status Reason Start Date Expiration Date Visits Re quested Visits Authorized [id number] Closed 10/24/2024 10/24/2025 [address] [facility] Summary Purpose Family History Relationship Condition Age at Onset Recorded Date/T rupa father Cerebrovascular accident (CVA) Unknown mother Myocardial infarction 87 Relationship Condition Age at Onset Recorded Date/T rupa Not Specified History of deep venous thrombosis Unknow n jail current us e of anticoagulant therapy Unknown father Cerebrovascular accident (CVA) Unknown mother Myocardial infarction 87 Advance Directives Documents on File Type Date Recorded Patient Orthophotography Technician Expl anation Advance Directive(s) 06/15/2023 1:23 PM Date Activated Date Inactivated Comments 06/09/2023 9:18 AM 06/13/2023 5:43 PM Question Answer Comments DNR Order Discussed With: Patient Advance Directive Response Recorded Date/ Time Advance Directives Yes March 24, 2016 12:54pm Living Will Yes April 23, 2020 1:27am Power of Briquetting Machine Operator Yes April 23 1:27am Documents on File Type Date Recorded Patient Orthophotography Technician Expl anation Advance Directive(s) Advance Directive(s) 03/25/2016 3:29 PM Advance Directive(s) 03/22/2016 8:29 AM Advance Directive(s) 09/14/2015 10:37 AM Advance Directive Response Recorded Date/ Time Name of Medical Power of Briquetting Machine Operator Echo Bravo November 17, 2021 1:25am Advance Directives Yes March 24, 2016 12:54pm Living Will Yes November 17, 2021 1:25am Power of Briquetting Machine Operator Yes October 1:25am Advance Directive Response Recorded Date/ Time Name of Medical Power of Briquetting Machine Operator Echo Bravo November 17, 2021 12:25am Advance Directives Yes March 24, 2016 11:54am Living Will Yes November 17, 2021 12:25am Power of Briquetting Machine Operator Yes October 12:25am Advance Directive Response Recorded Date/ Time Advance Directives Yes March 24, 2016 11:54am Living Will Yes November 17, 2021 12:25am Power of Briquetting Machine Operator Yes October 12:25am Advance Directive Response Recorded Date/ Time Advance Directives Yes March 24, 2016 12:54pm Living Will Yes November 17, 2021 1:25am Power of Briquetting Machine Operator Yes October 1:25am Advance Directive Response Recorded Date/ Time Advance Directives Yes March 24, 2016 12:54pm Living Will No May 15, 2023 3:08pm Power of Briquetting Machine Operator No May 14 3:08pm Advance Directive Response Recorded Date/ Time Name of Medical Power of Briquetting Machine Operator souleymane michele May 23, 2023 8:15pm Advance Directives Yes March 24, 2016 12:54pm Living Will Yes May 23, 2023 8:15pm Power of Briquetting Machine Operator Yes May 22 8:15pm Documents on File Type Date Recorded Patient Orthophotography Technician Expl anation Healthcare Power of Atty 05/12/2020 Living Will 05/12/2020 Latest Code Status on File Code Status Date Activated Date Inactivated Comments DNR and No Intubation and No ICU 05/24/2023 2:11 AM Question Answer Comments Plan of Care: Code Status Discussi on Completed Decision Maker: Patient Date Activated Date Inactivated Comments 06/09/2023 9:18 AM Documents on File Type Date Recorded Patient Orthophotography Technician Expl anation Advance Directive(s) 06/15/2023 1:23 PM Date Activated Date Inactivated Comments 06/09/2023 9:18 AM 06/13/2023 5:43 PM Question Answer Comments DNR Order Discussed With: Patient Advance Directive Response Recorded Date/ Time Living Will Yes November 17, 2021 1:25am Do you have a Healthcare Power of Briquetting Machine Operator? Yes November 17, 2021 1:25am Living Will Yes March 23 12:17am Do you have a Healthcare Power of Briquetting Machine Operator? Yes March 23, 2024 12:17am Living Will Yes January 19 11:49pm Do you have a Healthcare Power of Briquetting Machine Operator? Yes January 20, 2024 11:49pm Advance Directives Yes March 24, 2016 12:54pm Advance Directive Response Recorded Date/ Time Living Will Yes November 17, 2021 1:25am Do you have a Healthcare Power of Briquetting Machine Operator? Yes November 17, 2021 1:25am Living Will Yes March 23 12:17am Do you have a Healthcare Power of Briquetting Machine Operator? Yes March 23, 2024 12:17am Living Will Yes May 23, 2023 8:15pm Do you have a Healthcare Power of Briquetting Machine Operator? Yes May 23, 2023 8:15pm Living Will Yes January 19 11:49pm Do you have a Healthcare Power of Briquetting Machine Operator? Yes January 20, 2024 11:49pm Living Will Yes May 20, 2024 9:59pm Do you have a Healthcare Power of Briquetting Machine Operator? Yes May 20, 2024 9:59pm Advance Directives Yes March 24, 2016 12:54pm Advance Directive Response Recorded Date/ Time Living Will Yes November 17, 2021 1:25am Do you have a Healthcare Power of Briquetting Machine Operator? Yes November 17, 2021 1:25am Living Will Yes March 23 12:17am Do you have a Healthcare Power of Briquetting Machine Operator? Yes March 23, 2024 12:17am Living Will Yes June 19, 2024 8:48pm Do you have a Healthcare Power of Briquetting Machine Operator? Yes June 19, 2024 8:48pm Living Will Yes May 23, 2023 8:15pm Do you have a Healthcare Power of Briquetting Machine Operator? Yes May 23, 2023 8:15pm Living Will Yes January 19 11:49pm Do you have a Healthcare Power of Briquetting Machine Operator? Yes January 20, 2024 11:49pm Living Will Yes May 20, 2024 9:59pm Do you have a Healthcare Power of Briquetting Machine Operator? Yes May 20, 2024 9:59pm Advance Directives Yes March 24, 2016 12:54pm Advance Directive Response Recorded Date/ Time Living Will Yes November 17, 2021 1:25am Do you have a Healthcare Power of Briquetting Machine Operator? Yes November 17, 2021 1:25am Living Will Yes March 23 12:17am Do you have a Healthcare Power of Briquetting Machine Operator? Yes March 23, 2024 12:17am Living Will Yes June 19, 2024 8:48pm Do you have a Healthcare Power of Briquetting Machine Operator? Yes June 19, 2024 8:48pm Living Will Yes May 23, 2023 8:15pm Do you have a Healthcare Power of Briquetting Machine Operator? Yes May 23, 2023 8:15pm Living Will Yes May 20, 2024 9:59pm Do you have a Healthcare Power of Briquetting Machine Operator? Yes May 20, 2024 9:59pm Advance Directives Yes March 24, 2016 12:54pm Advance Directive Response Recorded Date/ Time Living Will Yes November 17, 2021 1:25am Do you have a Healthcare Pow er of Briquetting Machine Operator? Yes November 17, 2021 1:25am Living Will Yes March 23 12:17am Do you have a Healthcare Pow er of Briquetting Machine Operator? Yes March 23, 2024 12:17am Living Will Yes June 19, 2024 8:48pm Do you have a Healthcare Pow er of Briquetting Machine Operator? Yes June 19, 2024 8:48pm Living Will Yes May 23, 2023 8:15pm Do you have a Healthcare Pow er of Briquetting Machine Operator? Yes May 23, 2023 8:15pm Living Will Yes May 20, 2024 9:59pm Do you have a Healthcare Pow er of Briquetting Machine Operator? Yes May 20, 2024 9:59pm Advance Directives on File Yes August 05, 2024 7:22am Living Will Yes August 05, 2024 7:22am Do you have a Healthcare Pow er of Briquetting Machine Operator? Yes August 05, 2024 7:22am Name of Medical Power of Briquetting Machine Operator daughter bisi simpson August 05, 2024 7:22am Advance Directives Yes August 05 7:22am Advance Directive Response Recorded Date/ Time Living Will Yes November 17, 2021 1:25am Do you have a Healthcare Pow er of Briquetting Machine Operator? Yes November 17, 2021 1:25am Living Will Yes March 23 12:17am Do you have a Healthcare Pow er of Briquetting Machine Operator? Yes March 23, 2024 12:17am Living Will Yes June 19, 2024 8:48pm Do you have a Healthcare Pow er of Briquetting Machine Operator? Yes June 19, 2024 8:48pm Living Will Yes May 23, 2023 8:15pm Do you have a Healthcare Pow er of Briquetting Machine Operator? Yes May 23, 2023 8:15pm Living Will Yes May 20, 2024 9:59pm Do you have a Healthcare Pow er of Briquetting Machine Operator? Yes May 20, 2024 9:59pm Advance Directives on File Yes August 05, 2024 7:22am Living Will Yes August 05, 2024 7:22am Do you have a Healthcare Pow er of Briquetting Machine Operator? Yes August 05, 2024 7:22am Name of Medical Power of Briquetting Machine Operator daughter bisi simpson August 05, 2024 7:22am Advance Directives Yes August 05 7:22am Do you have a Healthcare Pow er of Briquetting Machine Operator? Yes August 07, 2024 4:00pm Advance Directive Response Recorded Date/ Time Living Will Yes November 17, 2021 1:25am Do you have a Healthcare Pow er of Briquetting Machine Operator? Yes November 17, 2021 1:25am Living Will Yes March 23 12:17am Do you have a Healthcare Pow er of Briquetting Machine Operator? Yes March 23, 2024 12:17am Living Will Yes June 19, 2024 8:48pm Do you have a Healthcare Pow er of Briquetting Machine Operator? Yes June 19, 2024 8:48pm Living Will Yes May 23, 2023 8:15pm Do you have a Healthcare Pow er of Briquetting Machine Operator? Yes May 23, 2023 8:15pm Living Will Yes May 20, 2024 9:59pm Do you have a Healthcare Pow er of Briquetting Machine Operator? Yes May 20, 2024 9:59pm Advance Directives on File Yes August 05, 2024 7:22am Living Will Yes August 05, 2024 7:22am Do you have a Healthcare Pow er of Briquetting Machine Operator? Yes August 05, 2024 7:22am Name of Medical Power of Briquetting Machine Operator daughter bisi simpson August 05, 2024 7:22am Advance Directives Yes August 05 7:22am Do you have a Healthcare Pow er of Briquetting Machine Operator? Yes August 07, 2024 9:52pm Name of Medical Power of Briquetting Machine Operator souleymane August 07, 2024 9:52pm Advance Directive Response Recorded Date/ Time Living Will Yes June 19, 2024 8:48pm Do you have a Healthcare Power of Briquetting Machine Operator? Yes June 19, 2024 8:48pm Living Will Yes May 23, 2023 8:15pm Do you have a Healthcare Power of Briquetting Machine Operator? Yes May 23, 2023 8:15pm Living Will Yes May 20, 2024 9:59pm Do you have a Healthcare Power of Briquetting Machine Operator? Yes May 20, 2024 9:59pm Advance Directives on File Yes August 05, 2024 7:22am Living Will Yes August 05, 2024 7:22am Do you have a Healthcare Power of Briquetting Machine Operator? Yes August 05, 2024 7:22am Name of Medical Power of Briquetting Machine Operator daughter bisi simpson August 05, 2024 7:22am Advance Directives Yes August 05 7:22am Do you have a Healthcare Power of Briquetting Machine Operator? Yes August 07, 2024 9:52pm Name of Medical Power of Briquetting Machine Operator souleymane August 07, 2024 9:52pm Advance Directive Response Recorded Date/ Time Living Will Yes June 19, 2024 8:48pm Do you have a Healthcare Power of Briquetting Machine Operator? Yes June 19, 2024 8:48pm Advance Directives on File Yes August 05, 2024 7:22am Living Will Yes August 05, 2024 7:22am Do you have a Healthcare Power of Briquetting Machine Operator? Yes August 05, 2024 7:22am Name of Medical Power of Briquetting Machine Operator leny simpson August 05, 2024 7:22am Advance Directives Yes August 05 7:22am Do you have a Healthcare Power of Briquetting Machine Operator? Yes August 07, 2024 9:52pm Name of Medical Power of Briquetting Machine Operator souleymane August 07, 2024 9:52pm Advance Directive Response Recorded Date/ Time Advance Directives on File Yes August 05, 2024 7:22am Living Will Yes August 05, 2024 7:22am Do you have a Healthcare Power of Briquetting Machine Operator? Yes August 05, 2024 7:22am Name of Medical Power of Briquetting Machine Operator leny simpson August 05, 2024 7:22am Advance Directives Yes August 05 7:22am Do you have a Healthcare Power of Briquetting Machine Operator? Yes August 07, 2024 9:52pm Name of Medical Power of Briquetting Machine Operator souleymane August 07, 2024 9:52pm Date Activated Date Inactivated Comments 10/23/2024 5:41 AM Date Activated Date Inactivated Comments 10/23/2024 5:41 AM 10/24/2024 3:36 PM Date Activated Date Inactivated Comments 10/23/2024 5:41 AM 10/24/2024 3:36 PM Advance Directive Response Recorded Date/ Time Advance Directives Yes August 05 7:22am Hospital Course Note Send Summary: Discharge [facility] Providers: Provider RoleProvider Name Amos Monge James ConsultingAlvin Sawyer ConsultingNatalie, Di ConsultingLeigh Billy ConsultingVicky Boyd ConsultingMarco A, Amos Rosales Note Recipients: Amos Floyd MD - [phone] [] Discharge: Summary: Admission Date: .01-May-2020 20:47:00 [...] INR 2-3 MO F/U CP *ESTUARDO* CP *ESTURADO* S/O INR Reason for Visit Chest pain [...] (acute kidney in jury) Elevated troponin Hypotension Lares disease Chronic kidney disease Chief Complaint S/O INR S/O INR S/O INR S/O INR HYPOTENSION, ANGELA HYPOTENSION, ANGELA HYPOTENSION, ANGELA HYPOTENSION, ANGELA Reason for Visit Moris disease ANGELA (acute kidney injury) Elevated troponin Hypotension Chronic kidney disease Chronic kidney disease, stage 3 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 Chief Complaint S/O INR S/O INR S/O INR HYPOTENSION, ANGELA HYPOTENSION, ANGELA HYPOTENSION, ANGELA HYPOTENSION, ANGELA PROLIA/60MG Reason for Visit ANGELA (acute kidney in jury) Elevated troponin Hypotension Chief Complaint S/O INR S/O INR HYPOTENSION, ANGELA HYPOTENSION, ANGELA HYPOTENSION, ANGELA HYPOTENSION, ANGELA PROLIA/60MG 1 Y [facility]p hospital E ORDER Reason for Visit Lares disease ANGELA (acute kidney injury) Elevated troponin Hypotension Lares disease Osteoporosis Essential (primary) hypertension History of pulmonary embolism Hyperlipidemia History of non-ST elevation myocardial infarction (NSTEMI) Chief Complaint S/O INR HYPOTENSION, ANGELA HYPOTENSION, ANGELA HYPOTENSION, ANGELA HYPOTENSION, ANGELA PROLIA/60MG 1 Y /[facility] S/p hospital E ORDER 6 wk fu EOERS-3 ORDERING DRS E ORDER Reason for Visit Lares disease ANGELA (acute kidney injury) Elevated troponin Hypotension Lares disease Osteoporosis Essential (primary) hypertension History of pulmonary embolism Hyperlipidemia History of non-ST elevation myocardial infarction (NSTEMI) Essential (primary) hypertension History of pulmonary embolism Hyperlipidemia History of non-ST elevation myocardial infarction (NSTEMI) Chief Complaint PROLIA/60MG 1 Y /[facility] S/ hospital E ORDER 6 wk fu [...] Y FU PROLIA/60MG EORDER/INR Reason for Visit Lares disease Osteoporosis Chief Complaint EORDER/INR EORDER/INR 1 Y FU PROLIA/60MG EORDER/INR EORDER/INR Reason for Visit Lares disease Osteoporosis Chief Complaint EORDER/INR 1 Y [...] Aortic stenosis April 29, 2024 10: 53am terminal makeup operator (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) use of anticoagulant s April 29, [...] Aortic stenosis April 29, 2024 10: 53am jail (current) use of anticoagulant s April 29, [...] Aortic stenosis April 29, 2024 10: 53am terminal makeup operator (current) use of anticoagulant s April 29, 2024 10:53am MVP (mitral valve prolapse) April 29, 2024 10:53am Chronic kidney disease, stage 3 April 292024 10:53am Essential (primary) hypertension April 202024 10:53am Hyperlipidemia April 29, 2024 10: 53am History of non-ST elevation myocardial i nfarction (NSTEMI) April 29, 2024 10:53am Aortic stenosis July 23, 2024 8:33a m jail (current) use of anticoagulant s July 23, [...] Aortic stenosis April 29, 2024 10: 53am terminal makeup operator (current) use of anticoagulant s April 29, 2024 10:53am MVP (mitral valve prolapse) April 29, 2024 10:53am Chronic kidney disease, stage 3 April 292024 10:53am Essential (primary) hypertension April 202024 10:53am Hyperlipidemia April 29, 2024 10: 53am History of non-ST elevation myocardial i nfarction (NSTEMI) April 29, 2024 10:53am Aortic stenosis July 23, 2024 8:33a m terminal makeup operator (current) use of anticoagulant s July 23, 2024 8:33am MVP (mitral valve prolapse) July 23 8:33am Chronic kidney disease, stage 3 July 8:33am Essential (primary) hypertension July 8:33am Hyperlipidemia July 23, 2024 8:33a m History of non-ST elevation myocardial i nfarction (NSTEMI) July 23, 2024 8:33am Acute cystitis without hematuria August 072024 8:16pm Acute hypotension August 07, 2024 8:16 pm Lares's disease August 07, 2024 8:16 pm Aortic stenosis August 07, 2024 8:16 pm Aortic stenosis, severe August 07, 2024 8:16pm Complicated urinary tract infection August 07, 2024 8:16pm Dark stools August 07, 2024 8:16 pm Dehydration August 07, 2024 8:16 pm Elevated troponin August 07, 2024 8:16 pm Leukocytosis August 07, 2024 8:16 pm terminal makeup operator (current) use of anticoagulant s August 07, [...] Aortic stenosis April 29, 2024 10: 53am terminal makeup operator (current) use of anticoagulant s April 29, 2024 10:53am MVP (mitral valve prolapse) April 29, 2024 10:53am Chronic kidney disease, stage 3 April 292024 10:53am Essential (primary) hypertension April 202024 10:53am Hyperlipidemia April 29, 2024 10: 53am History of non-ST elevation myocardial i nfarction (NSTEMI) April 29, 2024 10:53am Aortic stenosis July 23, 2024 8:33a m terminal makeup operator (current) use of anticoagulant s July 23, 2024 8:33am MVP (mitral valve prolapse) July 23 8:33am Chronic kidney disease, stage 3 July 8:33am Essential (primary) hypertension July 8:33am Hyperlipidemia July 23, 2024 8:33a m History of non-ST elevation myocardial i nfarction (NSTEMI) July 23, 2024 8:33am Acute cystitis without hematuria August 072024 8:16pm Acute hypotension August 07, 2024 8:16 pm Lares's disease August 07, 2024 8:16 pm Aortic stenosis August 07, 2024 8:16 pm Aortic stenosis, severe August 07, 2024 8:16pm Bradycardia August 07, 2024 8:16 pm Complicated urinary tract infection August 07, 2024 8:16pm Dark stools August 07, 2024 8:16 pm Dehydration August 07, 2024 8:16 pm Elevated troponin August 07, 2024 8:16 pm Leukocytosis August 07, 2024 8:16 pm jail (current) use of anticoagulant s August 07, [...] Chronic kidney disease, stage 3 July 8:33am jail (current) use of anticoagulant s July 23, [...] pm Sepsis August 07, 2024 8:16 pm Lares's disease August 07, 2024 8:16 pm Aortic stenosis August 07, 2024 8:16 pm Aortic stenosis, severe August 07, 2024 8:16pm Chronic kidney disease, stage 3 July 8:16pm jail (current) use of anticoagulant s August 07, [...] Chronic kidney disease, stage 3 July 8:33am jail (current) use of anticoagulant s July 23, [...] Chronic kidney disease, stage 3 July 8:16pm jail (current) use of anticoagulant s August 07, 2024 8:16pm MVP (mitral valve prolapse) August 07, 8:16pm Overweight (BMI 25.0-29.9) August 07 8:16pm S/P TAVR (transcatheter aortic valve rep lacement) November 14, 2024 8:57am Essential (primary) hypertension 2024 8:57am Hyperlipidemia November 14, 2024 8:57am History of non-ST elevation myocardial infarction (NSTEMI) November 14, 2024 8:57am Chronic kidney disease, stage 3 2024 8:57am jail (current) use of anticoagulant s November 14, [...] Chronic kidney disease, stage 3 2024 8:57am jail (current) use of anticoagulant s November 14, [...] HIGH COMPLEX 45 MINS Amos Floyd MD [address] [place] [address] [facility] [address] [address] Referral ID Status Reason Start Date Expiration Date Visits Requested Visits Authorized [id number] Authorized Auto-Generat ed Referral 10/26/2022 02/19/2023 1 1 Specialty Diagnoses / Procedures Referred By Cailinac t Referred To Contact XR IMAGING Diagnoses Hip pain, unspecified laterality Procedures XR HIP BILATERAL 5V PEL/AP/LAT EACH HIP RADEX HIPS BILATERAL WITH PELVIS MINIMUM 5 VIEWS Amos Floyd MD [address] [place] [address] [place] [address] Referral ID Status Reason Start Date Expiration Date V isits Requested Visits Authorized [id number] Closed Auto-Generate d Referral 10/26/2022 11/25/2023 1 1 Specialty Diagnoses / Procedures Referred By Contac t Referred To Contact [facility] Diagnoses Pain of left hip Procedures PT REHAB FOLLOW UP ORDER THERAPEUTIC EXERCISES RE, EA 15 MIN. Pt [facility] [address] [place] [address] [facility] [address] [place] [address] Referral ID Status Reason Start Date Expiration Date Visits Requested Visits Authorized [id number] Pending Review PCP Requested Referral Auto-Generate d Referral 11/01/2022 01/30/2023 1 1 Specialty Diagnoses / Procedures Referred By Contac t Referred To Contact Podiatry Diagnoses Foot pain, right Procedures CONSULT TO PODIATRY OFFICE/OUTPATIENT [facility] MDM 60-74 MINUTES Jacinda Enriquez, BROKERAGE CLERK.[employer] [address] [place] [address] Referral ID Status Reason Start Date Expiration Date Visits Requested Visits Authorized [id number] Authorized PCP Requested Referral 11/08/2022 11/08/2023 1 1 Specialty Diagnoses / Procedures Referred By Contac t Referred To Contact XR IMAGING Diagnoses Foot pain, right Procedures XR FOOT GENERAL 3V AP/LAT/OBL RIGHT RADEX FOOT COMPLETE MINIMUM 3 VIEWS Jacinda Enriquez, BROKERAGE CLERK.[employer] [address] [place] [address] [place] [address] Referral ID Status Reason Start Date Expiration Date V isits Requested Visits Authorized [id number] Closed Auto-Generate d Referral 11/08/2022 12/08/2023 1 1 Specialty Diagnoses / Procedures Referred By Contac t Referred To Contact [facility] Diagnoses Physical deconditioning Muscle weakness Gait abnormality Procedures CONSULT TO PHYSICAL THERAPY PHYSICAL THERAPY EVALUATION HIGH COMPLEX 45 MINS Rocio Elizalde, BROKERAGE CLERK.[employer] [address] [place] [address] [facility] [address] [place] [address] Referral ID Status Reason Start Date Expiration Date Visits Requested Visits Authorized [id number] Pending Review Auto-Generat ed Referral 05/31/2023 05/30/2024 1 1 Specialty Diagnoses / Procedures Referred By Contac t Referred To Contact CT IMAGING Diagnoses Nodule of lower lobe of right lung Procedures CT CHEST WO IVCON DIAGNOSTIC COMPUTED TOMOGRAPHY THORAX W/O Amos Bill MD [address] [place] [address] [place] [id number] Referral ID Status Reason Start Date Expiration Date Visits Requested Visits Authorized [id number] New Request Auto-Generat ed Referral 02/13/2025 1 1 Additional Source Comments INFORMATION SOURCE (unrecogn ized section and content) DATE CREATED AUTHOR 08/15/2017 [facility] DATE CREATED AUTHOR AUTHOR'S ORGANIZ ATION 04/29/2020 [facility] DATE CREATED AUTHOR AUTHOR'S ORGANIZ ATION 05/27/2020 [facility] DATE CREATED AUTHOR AUTHOR'S ORGANIZ ATION 05/25/2023 [facility] DATE CREATED AUTHOR AUTHOR'S ORGANIZ ATION 06/13/2023 [facility] DATE CREATED AUTHOR AUTHOR'S ORGANIZ ATION 09/24/2024 [facility] DATE CREATED AUTHOR AUTHOR'S ORGANIZ ATION 11/03/2024 [facility] DATE CREATED AUTHOR AUTHOR'S ORGANIZ ATION 12/19/2024 [facility] DATE CREATED AUTHOR AUTHOR'S ORGANIZ ATION 12/19/[address] [facility] Goals (unrecognized section [...] or prosecute any alcohol or drug abuse patient.[facility] HospitalIn the event this information is protected by the Federal Confidentiality of Alcohol and Drug Abuse Patient Records regulations: The Federal rules restrict any use of the information to criminally investigate or prosecute any alcohol or drug abuse patient.[facility] HospitalIn the event this information is protected by the Federal Confidentiality of Alcohol and Drug Abuse Patient Records regulations: The Federal rules restrict any use of the information to criminally investigate or prosecute any alcohol or drug abuse patient.[facility] HospitalIn the event this information is protected by the Federal Confidentiality of Alcohol and Drug Abuse Patient Records regulations: The Federal rules restrict any use of the information to criminally investigate or prosecute any alcohol or drug abuse patient.[facility] HospitalIn the event this information is protected by the Federal Confidentiality of Alcohol and Drug Abuse Patient Records regulations: The Federal rules restrict any use of the information to criminally investigate or prosecute any alcohol or drug abuse patient.[facility] HospitalIn the event this information is protected by the Federal Confidentiality of Alcohol and Drug Abuse Patient Records regulations: The Federal rules restrict any use of the information to criminally investigate or prosecute any alcohol or drug abuse patient.[facility] HospitalIn the event this information is protected by the Federal Confidentiality of Alcohol and Drug Abuse Patient Records regulations: The Federal rules restrict any use of the information to criminally investigate or prosecute any alcohol or drug abuse patient.[facility] HospitalIn the event this information is protected by the Federal Confidentiality of Alcohol and Drug Abuse Patient Records regulations: The Federal rules restrict any use of the information to criminally investigate or prosecute any alcohol or drug abuse patient.[facility] HospitalIn the event this information is protected by the Federal Confidentiality of Alcohol and Drug Abuse Patient Records regulations: The Federal rules restrict any use of the information to criminally investigate or prosecute any alcohol or drug abuse patient.[facility] HospitalIn the event this information is protected by the Federal Confidentiality of Alcohol and Drug Abuse Patient Records regulations: The Federal rules restrict any use of the information to criminally investigate or prosecute any alcohol or drug abuse patient.[facility] HospitalIn the event this information is protected by the Federal Confidentiality of Alcohol and Drug Abuse Patient Records regulations: The Federal rules restrict any use of the information to criminally investigate or prosecute any alcohol or drug abuse patient.[facility] HospitalIn the event this information is protected by the Federal Confidentiality of Alcohol and Drug Abuse Patient Records regulations: The Federal rules restrict any use of the information to criminally investigate or prosecute any alcohol or drug abuse patient.[facility] HospitalIn the event this information is protected by the Federal Confidentiality of Alcohol and Drug Abuse Patient Records regulations: The Federal rules restrict any use of the information to criminally investigate or prosecute any alcohol or drug abuse patient.[facility] HospitalIn the event this information is protected by the Federal Confidentiality of Alcohol and Drug Abuse Patient Records regulations: The Federal rules restrict any use of the information to criminally investigate or prosecute any alcohol or drug abuse patient.[facility] HospitalIn the event this information is protected by the Federal Confidentiality of Alcohol and Drug Abuse Patient Records regulations: The Federal rules restrict any use of the information to criminally investigate or prosecute any alcohol or drug abuse patient.[facility] HospitalIn the event this information is protected by the Federal Confidentiality of Alcohol and Drug Abuse Patient Records regulations: The Federal rules restrict any use of the information to criminally investigate or prosecute any alcohol or drug abuse patient.[facility] HospitalIn the event this information is protected by the Federal Confidentiality of Alcohol and Drug Abuse Patient Records regulations: The Federal rules restrict any use of the information to criminally investigate or prosecute any alcohol or drug abuse patient.[facility] HospitalIn the event this information is protected by the Federal Confidentiality of Alcohol and Drug Abuse Patient Records regulations: The Federal rules restrict any use of the information to criminally investigate or prosecute any alcohol or drug abuse patient.[facility] HospitalIn the event this information is protected by the Federal Confidentiality of Alcohol and Drug Abuse Patient Records regulations: The Federal rules restrict any use of the information to criminally investigate or prosecute any alcohol or drug abuse patient.[facility] HospitalIn the event this information is protected by the Federal Confidentiality of Alcohol and Drug Abuse Patient Records regulations: The Federal rules restrict any use of the information to criminally investigate or prosecute any alcohol or drug abuse patient.[facility] HospitalIn the event this information is protected by the Federal Confidentiality of Alcohol and Drug Abuse Patient Records regulations: The Federal rules restrict any use of the information to criminally investigate or prosecute any alcohol or drug abuse patient.[facility] HospitalIn the event this information is protected by the Federal Confidentiality of Alcohol and Drug Abuse Patient Records regulations: The Federal rules restrict any use of the information to criminally investigate or prosecute any alcohol or drug abuse patient.[facility] HospitalIn the event this information is protected by the Federal Confidentiality of Alcohol and Drug Abuse Patient Records regulations: The Federal rules restrict any use of the information to criminally investigate or prosecute any alcohol or drug abuse patient.[facility] HospitalIn the event this information is protected by the Federal Confidentiality of Alcohol and Drug Abuse Patient Records regulations: The Federal rules restrict any use of the information to criminally investigate or prosecute any alcohol or drug abuse patient.[facility] HospitalIn the event this information is protected by the Federal Confidentiality of Alcohol and Drug Abuse Patient Records regulations: The Federal rules restrict any use of the information to criminally investigate or prosecute any alcohol or drug abuse patient.[facility] HospitalIn the event this information is protected by the Federal Confidentiality of Alcohol and Drug Abuse Patient Records regulations: The Federal rules restrict any use of the information to criminally investigate or prosecute any alcohol or drug abuse patient.[facility] HospitalIn the event this information is protected by the Federal Confidentiality of Alcohol and Drug Abuse Patient Records regulations: The Federal rules restrict any use of the information to criminally investigate or prosecute any alcohol or drug abuse patient.[facility] HospitalIn the event this information is protected by the Federal Confidentiality of Alcohol and Drug Abuse Patient Records regulations: The Federal rules restrict any use of the information to criminally investigate or prosecute any alcohol or drug abuse patient.[facility] HospitalIn the event this information is protected by the Federal Confidentiality of Alcohol and Drug Abuse Patient Records regulations: The Federal rules restrict any use of the information to criminally investigate or prosecute any alcohol or drug abuse patient.[facility] HospitalIn the event this information is protected by the Federal Confidentiality of Alcohol and Drug Abuse Patient Records regulations: The Federal rules restrict any use of the information to criminally investigate or prosecute any alcohol or drug abuse patient.[facility] HospitalIn the event this information is protected by the Federal Confidentiality of Alcohol and Drug Abuse Patient Records regulations: The Federal rules restrict any use of the information to criminally investigate or prosecute any alcohol or drug abuse patient.[facility] HospitalIn the event this information is protected by the Federal Confidentiality of Alcohol and Drug Abuse Patient Records regulations: The Federal rules restrict any use of the information to criminally investigate or prosecute any alcohol or drug abuse patient.[facility] HospitalIn the event this information is protected by the Federal Confidentiality of Alcohol and Drug Abuse Patient Records regulations: The Federal rules restrict any use of the information to criminally investigate or prosecute any alcohol or drug abuse patient.[facility] HospitalIn the event this information is protected by the Federal Confidentiality of Alcohol and Drug Abuse Patient Records regulations: The Federal rules restrict any use of the information to criminally investigate or prosecute any alcohol or drug abuse patient.[facility] HospitalIn the event this information is protected by the Federal Confidentiality of Alcohol and Drug Abuse Patient Records regulations: The Federal rules restrict any use of the information to criminally investigate or prosecute any alcohol or drug abuse patient.[facility] HospitalIn the event this information is protected by the Federal Confidentiality of Alcohol and Drug Abuse Patient Records regulations: The Federal rules restrict any use of the information to criminally investigate or prosecute any alcohol or drug abuse patient.[facility] HospitalIn the event this information is protected by the Federal Confidentiality of Alcohol and Drug Abuse Patient Records regulations: The Federal rules restrict any use of the information to criminally investigate or prosecute any alcohol or drug abuse patient.[facility] HospitalIn the event this information is protected by the Federal Confidentiality of Alcohol and Drug Abuse Patient Records regulations: The Federal rules restrict any use of the information to criminally investigate or prosecute any alcohol or drug abuse patient.[facility] HospitalIn the event this information is protected by the Federal Confidentiality of Alcohol and Drug Abuse Patient Records regulations: The Federal rules restrict any use of the information to criminally investigate or prosecute any alcohol or drug abuse patient.[facility] HospitalIn the event this information is protected by the Federal Confidentiality of Alcohol and Drug Abuse Patient Records regulations: The Federal rules restrict any use of the information to criminally investigate or prosecute any alcohol or drug abuse patient.[facility] HospitalIn the event this information is protected by the Federal Confidentiality of Alcohol and Drug Abuse Patient Records regulations: The Federal rules restrict any use of the information to criminally investigate or prosecute any alcohol or drug abuse patient.[facility] HospitalIn the event this information is protected by the Federal Confidentiality of Alcohol and Drug Abuse Patient Records regulations: The Federal rules restrict any use of the information to criminally investigate or prosecute any alcohol or drug abuse patient.[facility] HospitalIn the event this information is protected by the Federal Confidentiality of Alcohol and Drug Abuse Patient Records regulations: The Federal rules restrict any use of the information to criminally investigate or prosecute any alcohol or drug abuse patient.[facility] HospitalIn the event this information is protected by the Federal Confidentiality of Alcohol and Drug Abuse Patient Records regulations: The Federal rules restrict any use of the information to criminally investigate or prosecute any alcohol or drug abuse patient.[facility] HospitalIn the event this information is protected by the Federal Confidentiality of Alcohol and Drug Abuse Patient Records regulations: The Federal rules restrict any use of the information to criminally investigate or prosecute any alcohol or drug abuse patient.[facility] HospitalIn the event this information is protected by the Federal Confidentiality of Alcohol and Drug Abuse Patient Records regulations: The Federal rules restrict any use of the information to criminally investigate or prosecute any alcohol or drug abuse patient.[facility] HospitalIn the event this information is protected by the Federal Confidentiality of Alcohol and Drug Abuse Patient Records regulations: The Federal rules restrict any use of the information to criminally investigate or prosecute any alcohol or drug abuse patient.[facility] HospitalIn the event this information is protected by the Federal Confidentiality of Alcohol and Drug Abuse Patient Records regulations: The Federal rules restrict any use of the information to criminally investigate or prosecute any alcohol or drug abuse patient.[facility] HospitalIn the event this information is protected by the Federal Confidentiality of Alcohol and Drug Abuse Patient Records regulations: The Federal rules restrict any use of the information to criminally investigate or prosecute any alcohol or drug abuse patient.[facility] HospitalIn the event this information is protected by the Federal Confidentiality of Alcohol and Drug Abuse Patient Records regulations: The Federal rules restrict any use of the information to criminally investigate or prosecute any alcohol or drug abuse patient.[facility] HospitalIn the event this information is protected by the Federal Confidentiality of Alcohol and Drug Abuse Patient Records regulations: The Federal rules restrict any use of the information to criminally investigate or prosecute any alcohol or drug abuse patient.[facility] HospitalIn the event this information is protected by the Federal Confidentiality of Alcohol and Drug Abuse Patient Records regulations: The Federal rules restrict any use of the information to criminally investigate or prosecute any alcohol or drug abuse patient.[facility] HospitalIn the event this information is protected by the Federal Confidentiality of Alcohol and Drug Abuse Patient Records regulations: The Federal rules restrict any use of the information to criminally investigate or prosecute any alcohol or drug abuse patient.[facility] HospitalIn the event this information is protected by the Federal Confidentiality of Alcohol and Drug Abuse Patient Records regulations: The Federal rules restrict any use of the information to criminally investigate or prosecute any alcohol or drug abuse patient.[facility] HospitalIn the event this information is protected by the Federal Confidentiality of Alcohol and Drug Abuse Patient Records regulations: The Federal rules restrict any use of the information to criminally investigate or prosecute any alcohol or drug abuse patient.[facility] HospitalIn the event this information is protected by the Federal Confidentiality of Alcohol and Drug Abuse Patient Records regulations: The Federal rules restrict any use of the information to criminally investigate or prosecute any alcohol or drug abuse patient.[facility] HospitalIn the event this information is protected by the Federal Confidentiality of Alcohol and Drug Abuse Patient Records regulations: The Federal rules restrict any use of the information to criminally investigate or prosecute any alcohol or drug abuse patient.[facility] HospitalIn the event this information is protected by the Federal Confidentiality of Alcohol and Drug Abuse Patient Records regulations: The Federal rules restrict any use of the information to criminally investigate or prosecute any alcohol or drug abuse patient.[facility] HospitalIn the event this information is protected by the Federal Confidentiality of Alcohol and Drug Abuse Patient Records regulations: The Federal rules restrict any use of the information to criminally investigate or prosecute any alcohol or drug abuse patient.[facility] HospitalIn the event this information is protected by the Federal Confidentiality of Alcohol and Drug Abuse Patient Records regulations: The Federal rules restrict any use of the information to criminally investigate or prosecute any alcohol or drug abuse patient.[facility] HospitalIn the event this information is protected by the Federal Confidentiality of Alcohol and Drug Abuse Patient Records regulations: The Federal rules restrict any use of the information to criminally investigate or prosecute any alcohol or drug abuse patient.[facility] HospitalIn the event this information is protected by the Federal Confidentiality of Alcohol and Drug Abuse Patient Records regulations: The Federal rules restrict any use of the information to criminally investigate or prosecute any alcohol or drug abuse patient.[facility] HospitalIn the event this information is protected by the Federal Confidentiality of Alcohol and Drug Abuse Patient Records regulations: The Federal rules restrict any use of the information to criminally investigate or prosecute any alcohol or drug abuse patient.[facility] HospitalIn the event this information is protected by the Federal Confidentiality of Alcohol and Drug Abuse Patient Records regulations: The Federal rules restrict any use of the information to criminally investigate or prosecute any alcohol or drug abuse patient.[facility] HospitalIn the event this information is protected by the Federal Confidentiality of Alcohol and Drug Abuse Patient Records regulations: The Federal rules restrict any use of the information to criminally investigate or prosecute any alcohol or drug abuse patient.[facility] HospitalIn the event this information is protected by the Federal Confidentiality of Alcohol and Drug Abuse Patient Records regulations: The Federal rules restrict any use of the information to criminally investigate or prosecute any alcohol or drug abuse patient.[facility] HospitalIn the event this information is protected by the Federal Confidentiality of Alcohol and Drug Abuse Patient Records regulations: The Federal rules restrict any use of the information to criminally investigate or prosecute any alcohol or drug abuse patient.[facility] HospitalIn the event this information is protected by the Federal Confidentiality of Alcohol and Drug Abuse Patient Records regulations: The Federal rules restrict any use of the information to criminally investigate or prosecute any alcohol or drug abuse patient.[facility] HospitalIn the event this information is protected by the Federal Confidentiality of Alcohol and Drug Abuse Patient Records regulations: The Federal rules restrict any use of the information to criminally investigate or prosecute any alcohol or drug abuse patient.[facility] HospitalIn the event this information is protected by the Federal Confidentiality of Alcohol and Drug Abuse Patient Records regulations: The Federal rules restrict any use of the information to criminally investigate or prosecute any alcohol or drug abuse patient.[facility] HospitalIn the event this information is protected by the Federal Confidentiality of Alcohol and Drug Abuse Patient Records regulations: The Federal rules restrict any use of the information to criminally investigate or prosecute any alcohol or drug abuse patient.[facility] HospitalIn the event this information is protected by the Federal Confidentiality of Alcohol and Drug Abuse Patient Records regulations: The Federal rules restrict any use of the information to criminally investigate or prosecute any alcohol or drug abuse patient.[facility] HospitalIn the event this information is protected by the Federal Confidentiality of Alcohol and Drug Abuse Patient Records regulations: The Federal rules restrict any use of the information to criminally investigate or prosecute any alcohol or drug abuse patient.[facility] HospitalIn the event this information is protected by the Federal Confidentiality of Alcohol and Drug Abuse Patient Records regulations: The Federal rules restrict any use of the information to criminally investigate or prosecute any alcohol or drug abuse patient.[facility] HospitalIn the event this information is protected by the Federal Confidentiality of Alcohol and Drug Abuse Patient Records regulations: The Federal rules restrict any use of the information to criminally investigate or prosecute any alcohol or drug abuse patient.[facility] HospitalIn the event this information is protected by the Federal Confidentiality of Alcohol and Drug Abuse Patient Records regulations: The Federal rules restrict any use of the information to criminally investigate or prosecute any alcohol or drug abuse patient.[facility] HospitalIn the event this information is protected by the Federal Confidentiality of Alcohol and Drug Abuse Patient Records regulations: The Federal rules restrict any use of the information to criminally investigate or prosecute any alcohol or drug abuse patient.[facility] HospitalIn the event this information is protected by the Federal Confidentiality of Alcohol and Drug Abuse Patient Records regulations: The Federal rules restrict any use of the information to criminally investigate or prosecute any alcohol or drug abuse patient.[facility] HospitalIn the event this information is protected by the Federal Confidentiality of Alcohol and Drug Abuse Patient Records regulations: The Federal rules restrict any use of the information to criminally investigate or prosecute any alcohol or drug abuse patient.[facility] HospitalIn the event this information is protected by the Federal Confidentiality of Alcohol and Drug Abuse Patient Records regulations: The Federal rules restrict any use of the information to criminally investigate or prosecute any alcohol or drug abuse patient.[facility] HospitalIn the event this information is protected by the Federal Confidentiality of Alcohol and Drug Abuse Patient Records regulations: The Federal rules restrict any use of the information to criminally investigate or prosecute any alcohol or drug abuse patient.[facility] HospitalIn the event this information is protected by the Federal Confidentiality of Alcohol and Drug Abuse Patient Records regulations: The Federal rules restrict any use of the information to criminally investigate or prosecute any alcohol or drug abuse patient.[facility] HospitalIn the event this information is protected by the Federal Confidentiality of Alcohol and Drug Abuse Patient Records regulations: The Federal rules restrict any use of the information to criminally investigate or prosecute any alcohol or drug abuse patient.[facility] HospitalIn the event this information is protected by the Federal Confidentiality of Alcohol and Drug Abuse Patient Records regulations: The Federal rules restrict any use of the information to criminally investigate or prosecute any alcohol or drug abuse patient.[facility] HospitalIn the event this information is protected by the Federal Confidentiality of Alcohol and Drug Abuse Patient Records regulations: The Federal rules restrict any use of the information to criminally investigate or prosecute any alcohol or drug abuse patient.[facility] HospitalIn the event this information is protected by the Federal Confidentiality of Alcohol and Drug Abuse Patient Records regulations: The Federal rules restrict any use of the information to criminally investigate or prosecute any alcohol or drug abuse patient.[facility] HospitalIn the event this information is protected by the Federal Confidentiality of Alcohol and Drug Abuse Patient Records regulations: The Federal rules restrict any use of the information to criminally investigate or prosecute any alcohol or drug abuse patient.[facility] HospitalIn the event this information is protected by the Federal Confidentiality of Alcohol and Drug Abuse Patient Records regulations: The Federal rules restrict any use of the information to criminally investigate or prosecute any alcohol or drug abuse patient.[facility] HospitalIn the event this information is protected by the Federal Confidentiality of Alcohol and Drug Abuse Patient Records regulations: The Federal rules restrict any use of the information to criminally investigate or prosecute any alcohol or drug abuse patient.[facility] HospitalIn the event this information is protected by the Federal Confidentiality of Alcohol and Drug Abuse Patient Records regulations: The Federal rules restrict any use of the information to criminally investigate or prosecute any alcohol or drug abuse patient.[facility] HospitalIn the event this information is protected by the Federal Confidentiality of Alcohol and Drug Abuse Patient Records regulations: The Federal rules restrict any use of the information to criminally investigate or prosecute any alcohol or drug abuse patient.[facility] HospitalIn the event this information is protected by the Federal Confidentiality of Alcohol and Drug Abuse Patient Records regulations: The Federal rules restrict any use of the information to criminally investigate or prosecute any alcohol or drug abuse patient.[facility] HospitalIn the event this information is protected by the Federal Confidentiality of Alcohol and Drug Abuse Patient Records regulations: The Federal rules restrict any use of the information to criminally investigate or prosecute any alcohol or drug abuse patient.[facility] HospitalIn the event this information is protected by the Federal Confidentiality of Alcohol and Drug Abuse Patient Records regulations: The Federal rules restrict any use of the information to criminally investigate or prosecute any alcohol or drug abuse patient.[facility] HospitalIn the event this information is protected by the Federal Confidentiality of Alcohol and Drug Abuse Patient Records regulations: The Federal rules restrict any use of the information to criminally investigate or prosecute any alcohol or drug abuse patient.[facility] HospitalIn the event this information is protected by the Federal Confidentiality of Alcohol and Drug Abuse Patient Records regulations: The Federal rules restrict any use of the information to criminally investigate or prosecute any alcohol or drug abuse patient.[facility] HospitalIn the event this information is protected by the Federal Confidentiality of Alcohol and Drug Abuse Patient Records regulations: The Federal rules restrict any use of the information to criminally investigate or prosecute any alcohol or drug abuse patient.[facility] HospitalIn the event this information is protected by the Federal Confidentiality of Alcohol and Drug Abuse Patient Records regulations: The Federal rules restrict any use of the information to criminally investigate or prosecute any alcohol or drug abuse patient.[facility] HospitalIn the event this information is protected by the Federal Confidentiality of Alcohol and Drug Abuse Patient Records regulations: The Federal rules restrict any use of the information to criminally investigate or prosecute any alcohol or drug abuse patient.[facility] HospitalIn the event this information is protected by the Federal Confidentiality of Alcohol and Drug Abuse Patient Records regulations: The Federal rules restrict any use of the information to criminally investigate or prosecute any alcohol or drug abuse patient.[facility] HospitalIn the event this information is protected by the Federal Confidentiality of Alcohol and Drug Abuse Patient Records regulations: The Federal rules restrict any use of the information to criminally investigate or prosecute any alcohol or drug abuse patient.[facility] Reason for Visit (unrecogniz ed section [...] COMPLEX 45 MINS Amos Floyd MD [address] [place] [address] [facility] [address] [address] Referral ID Status Reason Start Date Expiration Date Visits Requested Visits Authorized [id number] Authorized Auto-Generat ed Referral 02/20/2023 02/20/2024 99 [...] up Reason Comments 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 Onset Date Comments Refill Request 09/19/2022 Reason Onset Date Comments Left Hip Pain Immunizations 10/26/2022 Flu vaccination Reason Comments PT Eval Specialty Diagnoses / Procedures Referred By Contac t Referred To Contact [facility] Diagnoses Hip pain, unspecified laterality Procedures CONSULT TO PHYSICAL THERAPY PHYSICAL THERAPY EVALUATION HIGH COMPLEX 45 MINS Amos Floyd MD [address] [place] [address] [facility] [address] [address] Referral ID Status Reason Start Date Expiration Date V isits Requested Visits Authorized [id number] Closed Auto-Generate d Referral 10/26/2022 02/19/2023 1 1 Reason Comments Pain (foot) Right side of R foot x 2 days Reason Comments Refill Request Reason Comments Established Patient Follow Up Reason Comments Medicare Wellness Exam F/U 6 months Reason Comments PT Eval Reason Comments Patient Update Reason Comments ED Follow-up [facility] ER Specialty Diagnoses / Procedures Referred By Contac t Referred To Contact Diagnoses Hypercalcemia Addisons Disease Procedures ER OBSERVATION Elisa Mcdonough MD [address] [place] [id number] [address] [place] [address] Referral ID Status Reason Start Date Expiration Date Visits Re quested Visits Authorized [id number] 1 1 Reason Comments Clinical Update Reason [...] TOMOGRAPHY THORAX W/O Amos Bill MD [address] [place] [address] [place] [address] Referral ID Status Reason Start Date Expiration Date V isits Requested Visits Authorized [id number] Closed Auto-Generate d Referral 01/15/2024 02/13/2025 1 [...] NEW HIGH MDM 60 MINUTES Rocio Elizalde, BROKERAGE CLERK.[employer] [address] [place] [address] Phone: tel: fax: Referral ID Status Reason Start Date Expiration Date V isits Requested Visits Authorized [id number] Closed PCP Requested Referral 09/13/2024 09/13/2025 1 1 Reason Comments Consult Reason Comments Follow-up Reason Comments 2 month follow-up Reason Comments Cardiac Valve Problem Hospital Follow-up Reason Onset Date Comments Procedure 10/10/2024 Reason Comments Cardiac Valve Problem Care Teams (unrecognized sec tion and content) Communications Advisor Relationship Specialty Start Date End Date Amos Floyd MD [address] [facility] [place] [address] PCP - General 04/16/04 Communications Advisor Relationship Specialty Start Date End Date Amos Floyd MD [address] [facility] [place] [address] PCP - General 04/16/04 Communications Advisor Relationship Specialty Start Date End Date Amos Floyd MD [facility] [place] [address] PCP - General 04/16/04 Communications Advisor Relationship Specialty Start Date End Date Amos Floyd MD [address] [place] [address], [place] [address] PCP - General 04/16/04 Communications Advisor Relationship Specialty Start Date End Date Amos Floyd MD [facility] [place] [address] PCP - General 04/16/04 Communications Advisor Relationship Specialty Start Date End Date Amos Floyd MD [facility] [place] [address] PCP - General 04/16/04 Communications Advisor Relationship Specialty Start Date End Date Amos Floyd MD [facility] [place] [address] PCP - General 04/16/04 Communications Advisor Relationship Specialty Start Date End Date Amos Floyd MD [facility] [place] [address] PCP - General 04/16/04 Communications Advisor Relationship Specialty Start Date End Date Amos Floyd MD [address] [place] [address], [place] [address] PCP - General 04/16/04 Communications Advisor Relationship Specialty Start Date End Date Amos Floyd MD [address] [facility] [place] [place] [address] PCP - General 04/16/04 Communications Advisor Relationship Specialty Start Date End Date Amos Floyd MD [address] [facility] [place] [place] [address] PCP - General 04/16/04 Communications Advisor Relationship Specialty Start Date End Date Amos Floyd MD [address] [facility] [place] [address] PCP - General 04/16/04 Communications Advisor Relationship Specialty Start Date End Date Amos Floyd MD [address] [facility] [place] [place] [address] PCP - General 04/16/04 Team Status: Active [...] Active Basim DISLA, PA Attending Provider Active Communications Advisor Relationship Specialty Start Date End Date Amos Floyd MD [address] [facility] [place] [place] [address] PCP - General 04/16/04 Communications Advisor Relationship Specialty Start Date End Date Amos Floyd MD [address] [facility] [place] [address] PCP - General 04/16/04 Team Status: Inactive [...] PA Attending Provider, Referr ing Provider Active Communications Advisor Relationship Specialty Start Date End Date Amos Floyd MD [address] [facility] [place] [address] PCP - General 04/16/04 Communications Advisor Relationship Specialty Start Date End Date Amos Floyd MD [address] [facility] [place] [address] PCP - General 04/16/04 Communications Advisor Relationship Specialty Start Date End Date Amos Floyd MD [address] [place] [address] PCP - General 04/16/04 Communications Advisor Relationship Specialty Start Date End Date Amos Floyd MD [address] [place] [address] PCP - General 04/16/04 Communications Advisor Relationship Specialty Start Date End Date Amos Floyd MD [address] [place] [address] PCP - General 04/16/04 Team Status: Inactive Member Role Status Dates Dr. Amos Floyd MD Primary Care Provider Active Dr. Jordan Marte MD Other Provider Active Basim Velasquez PA, PA Attending Provider, Referr ing Provider Active Dr. Torsten Vann MD Other Provider Active Dr. Jennifer Tarango DO Other Provider Active Communications Advisor Relationship Specialty Start Date End Date Amos Floyd MD [address] [place] [address] PCP - General 04/16/04 Communications Advisor Relationship Specialty Start Date End Date Amos Floyd MD [address] [place] [address] PCP - General 04/16/04 Communications Advisor Relationship Specialty Start Date End Date Amos Floyd MD [address] [place] [address] PCP - General 04/16/04 Team Status: Inactive Member Role Status Dates Dr. Amos Flody MD Primary Care Provider, Refer ring Provider Active Ryan Ji MANAGER [employer]ENCES, MANAGER [employer]-C Attending Provider Active Communications Advisor Relationship Specialty Start Date End Date Amos Floyd MD [address] [facility] [place] [address] PCP - General 04/16/04 Communications Advisor Relationship Specialty Start Date End Date Amos Floyd MD [address] [facility] [place] [place] [address] PCP - General 04/16/04 Team Status: Active [...] MD Primary Care Provider Active Ryan Ji MANAGER [employer], MANAGER [employer]-C Attending Provider, Referring Pro vider Active Communications Advisor Relationship Specialty Start Date End Date Amos Floyd MD [address] [place] [address] PCP - General 04/16/04 Team Status: Inactive Member Role Status Dates Dr. Amos Floyd MD Primary Care Provider Active Dr. Juan Alberto Mcclendon MD Emergency Provider Active Communications Advisor Relationship Specialty Start Date End Date Amos Floyd MD [address] [facility] [place] [address] PCP - General 04/16/04 Communications Advisor Relationship Specialty Start Date End Date Amos Floyd MD [address] [facility] [place] [address] PCP - General 04/16/04 Communications Advisor Relationship Specialty Start Date End Date Amos Floyd MD [address] [facility] [place] [address] PCP - General 04/16/04 Team Status: Inactive Member Role Status Dates Dr. Amos Floyd MD Primary Care Provider Active Dr. Juan Alberto Mcclendon MD Attending Provider, Emergency Provider Active Team Status: Inactive Member Role Status Dates Dr. Amos Floyd MD Primary Care Provider Active Dr. Ankush Noguera DO Emergency Provider Active Communications Advisor Relationship Specialty Start Date End Date Amso Floyd MD [address] [facility] [place] [address] PCP - General 04/16/04 Communications Advisor Relationship Specialty Start Date End Date Amos Floyd MD [address] [place] [address] PCP - General 04/16/04 Communications Advisor Relationship Specialty Start Date End Date Amos Floyd MD [address] [place] [address] PCP - General 05/01/20 Team Status: Inactive Member Role Status Dates Dr. Amos Floyd MD Primary Care Provider Active Dr. Ankush Noguera DO Attending Provider, Emergency Provider Active Team Status: Inactive Member Role Status Dates Dr. Amos Floyd MD Primary Care Provider Active Rocio [employer]NAGER [employer], Fide Attending Provider, Referring Prov ider Active Communications Advisor Relationship Specialty Start Date End Date Amos Floyd MD [address] [place] [address] PCP - General 04/16/04 Communications Advisor Relationship Specialty Start Date End Date Amos Floyd MD [address] [place], [place] [address] PCP - General 04/16/04 Communications Advisor Relationship Specialty Start Date End Date Amos Floyd MD [address] [place] [address] PCP - General 04/16/04 Communications Advisor Relationship Specialty Start Date End Date Amos Floyd MD [address] [place] [address] PCP - General 04/16/04 Communications Advisor Relationship Specialty Start Date End Date Amos Floyd MD [address] [place] [address] PCP - General 04/16/04 Communications Advisor Relationship Specialty Start Date End Date Amos Floyd MD [address] [place] [address] PCP - General 04/16/04 Communications Advisor Relationship Specialty Start Date End Date Amos Floyd MD [address] [place] [address] PCP - General 04/16/04 Communications Advisor Relationship Specialty Start Date End Date Amos Floyd MD [address] [place] [address] PCP - General 04/16/04 Communications Advisor Relationship Specialty Start Date End Date Amos Floyd MD [address] [place] [address] PCP - General 04/16/04 Communications Advisor Relationship Specialty Start Date End Date Amos Floyd MD [address] [place] [address] PCP - General 04/16/04 Communications Advisor Relationship Specialty Start Date End Date Amos Floyd MD [address] [place] [address] PCP - General 04/16/04 Communications Advisor Relationship Specialty Start Date End Date Amos Floyd MD [address] [place] [address] PCP - General 04/16/04 Communications Advisor Relationship Specialty Start Date End Date Amos Floyd MD [address] [place] [address] PCP - General 04/16/04 Communications Advisor Relationship Specialty Start Date End Date Amos Floyd MD [address] [place] [address] PCP - General 04/16/04 Communications Advisor Relationship Specialty Start Date End Date Amos Floyd MD [address] [place] [address] PCP - General 04/16/04 Communications Advisor Relationship Specialty Start Date End Date Amos Floyd MD [address] [place] [address] PCP - General 04/16/04 Rocio Elizalde, BROKERAGE CLERK.ROOFER VINYL [employer]ATING [address] [place] [address] Power Crane Operator Internal Medicine 01/29/24 Communications Advisor Relationship Specialty Start Date End Date Amos Floyd MD [address] [place] [address] PCP - General 04/16/04 Rocio Elizalde, BROKERAGE CLERK.ROOFER [employer] [address] [place] [address] Power Crane Operator Internal Medicine 01/29/24 Communications Advisor Relationship Specialty Start Date End Date Amos Floyd MD [address] [place] [address] PCP - General 04/16/04 Rocio Elizalde, BROKERAGE CLERK.ROOFER [employer] [address] [place] [address] Power Crane Operator Internal Medicine 01/29/24 Communications Advisor Relationship Specialty Start Date End Date Amos Floyd MD [address] [place] [address] PCP - General 04/16/04 Rocio Elizalde, BROKERAGE CLERK.ROOFER [employer] [address] [place] [address] Power Crane Operator Internal Medicine 01/29/24 Team Status: Active Member [...] Active Member Role Status Dates Dr. Amos Folyd MD Primary Care Provider Active Start: May 24, 2024 Dr. Jordan Marte MD Attending Provider Active S tart: May 24, 2024 Communications Advisor Relationship Specialty Start Date End Date Amos Floyd MD [address] [place], [place] [address] PCP - General 04/16/04 Rocio Elizalde, BROKERAGE CLERK.ROOFER [employer] [address] [place], [place] [address] Power Crane Operator Internal Medicine 01/29/24 Team Status: Inactive Member [...] 2024 End: July 23, 2024 Heaven Bolton MANAGER LIFE SCIENCES, MANAGER LIFE SCIENCES-C Attending Provider Active Start: July 23, 2024 End: July 23, 2024 Communications Advisor Relationship Specialty Start Date End Date Amos Floyd MD [address] [place] [address] PCP - General 04/16/04 Rocio Elizalde, BROKERAGE CLERK.ROOFER [employer] [address] [place] [address] Power Crane Operator Internal Medicine 01/29/24 Team Status: Inactive Member [...] Other Provider Active Start: August 09, 2024 Communications Advisor Relationship Specialty Start Date End Date Amos Floyd MD [address] [place] [address] PCP - General 04/16/04 Rocio Elizalde, BROKERAGE CLERK.ROOFER [employer] [address] [place] [address] Power Crane Operator Internal Medicine 01/29/24 Annemarie Read, concrete smoother Product Management Manager Pulmonary Disease 08/15/24 Communications Advisor Relationship Specialty Start Date End Date Amos Floyd MD [address] [place], [place] [address] PCP - General 04/16/04 Rocio Elizalde, BROKERAGE CLERK.ROOFER [employer]ATING [address] [place] [address] Power Crane Operator Internal Medicine 01/29/24 Annemarie Read RN Primary Care Product Management Manager Pulmonary Disease 08/15/24 Communications Advisor Relationship Specialty Start Date End Date Amos Floyd MD [address] [place] [address] PCP - General 04/16/04 Rocio Elizalde, BROKERAGE CLERK.ROOFER [employer]ATING [address] [place] [address] Power Crane Operator Internal Medicine 01/29/24 Annemarie Read RN Primary Care Product Management Manager Pulmonary Disease 08/15/24 Communications Advisor Relationship Specialty Start Date End Date Amos Floyd MD [address] [facility] [place] [address] PCP - General 04/16/04 Rocio Elizalde, BROKERAGE CLERK.ROOFER VINYL COATING [address] [place] [place] [address] Power Crane Operator Internal Medicine 01/29/24 Annemarie Read RN Primary Care Product Management Manager Pulmonary Disease 08/15/24 Communications Advisor Relationship Specialty Start Date End Date Amos Floyd MD [address] [facility] [place] [address] PCP - General 04/16/04 Rocio Elizalde, BROKERAGE CLERK.ROOFER VINYL [employer]ATING [address] [place] [address] Power Crane Operator Internal Medicine 01/29/24 Annemarie Read RN Primary Care Product Management Manager Pulmonary Disease 08/15/24 Communications Advisor Relationship Specialty Start Date End Date Amos Floyd [address] [place] [address] PCP - General Internal Medicine 09/03/24 Communications Advisor Relationship Specialty Start Date End Date Mariel Amos Gaitan [address] [place] [address] PCP - General Internal Medicine 09/03/24 Team [...] 2024 End: July 23, 2024 Heaven Bolton MANAGER LIFE SCIENCES, MANAGER LIFE SCIENCES-C Attending Provider Active Start: July 23, 2024 [...] September 10, 2024 End: September 10, 2024 Communications Advisor Relationship Specialty Start Date End Date Amos Floyd MD [address] [place] [address] PCP - General 04/16/04 Rocio Elizalde, BROKERAGE CLERK.ROOFER [employer]ATING [address] [place], [place] [address] Power Crane Operator Internal Medicine 01/29/24 Communications Advisor Relationship Specialty Start Date End Date Amos Floyd [address] [place] [address] PCP - General Internal Medicine 09/03/24 Communications Advisor Relationship Specialty Start Date End Date Amos Floyd [address] [place] [address] PCP - General Internal Medicine 09/03/24 Communications Advisor Relationship Specialty Start Date End Date Amos Floyd MD [address] [place] [address] PCP - General 04/16/04 Rocio Elizalde, BROKERAGE CLERK.ROOFER VINYL [employer]ATING [address] [place], [place] [address] Power Crane Operator Internal Medicine 01/29/24 Communications Advisor Relationship Specialty Start Date End Date Amos Floyd [address] [place] [address] PCP - General Internal Medicine 09/03/24 Communications Advisor Relationship Specialty Start Date End Date Amos Floyd [address] [facility] [place] [address] PCP - General Internal Medicine 09/03/24 Communications Advisor Relationship Specialty Start Date End Date Amos Floyd [address] [facility] [place] [address] PCP - General Internal Medicine 09/03/24 Team [...] End: July 23, 2024 Heaven Bolton NP, MANAGER LIFE SCIENCES-C Attending Provider Active Start: July 23, 2024 [...] October 03, 2024 End: October 03, 2024 Communications Advisor Relationship Specialty Start Date End Date Amos Floyd [address] [place], [place] [address] PCP - General Internal Medicine 09/03/24 Communications Advisor Relationship Specialty Start Date End Date Amos Floyd [address] [place] [address] PCP - General Internal Medicine 09/03/24 Communications Advisor Relationship Specialty Start Date End Date Amos Floyd [address] [place] [address] PCP - General Internal Medicine 09/03/24 Team [...] 2024 End: July 23, 2024 Heaven Bolton MANAGER LIFE SCIENCES, MANAGER LIFE SCIENCES-C Attending Provider Active Start: July 23, 2024 [...] October 15, 2024 End: October 15, 2024 Communications Advisor Relationship Specialty Start Date End Date Amos Floyd [address] [place] [address] PCP - General Internal Medicine 09/03/24 Communications Advisor Relationship Specialty Start Date End Date Amos Floyd [address] [place], [place] [address] PCP - General Internal Medicine 09/03/24 Communications Advisor Relationship Specialty Start Date End Date Amos Floyd MD [address] [place], [place] [address] PCP - General 04/16/04 Rocio Elizalde, BROKERAGE CLERK.ROOFER [employer]IN[employer]ATING [address] [place] [address] Power Crane Operator Internal Medicine 01/29/24 Communications Advisor Relationship Specialty Start Date End Date Amos Floyd [address] [place], [place] [address] PCP - General Internal Medicine 09/03/24 Communications Advisor Relationship Specialty Start Date End Date Amos Floyd [address] [place] [address] PCP - General Internal Medicine 09/03/24 Team Status: Active Member Role/Relationship Status Dates Dr. Amos Floyd MD Primary care physician Activ e Team Status: Inactive Member Role/Relationship Status Dates Dr. Amos Floyd MD Primary care physician Activ e Start: July 23, 2024 End: July 23, 2024 Dr. Amos Floyd MD Referring Provider Active Start: July 23, 2024 End: July 23, 2024 Heaven Bolton MANAGER LIFE SCIENCES, MANAGER LIFE SCI[employer]ES-C Attending physician Active Start: July 23, 2024 [...] November 14, 2024 End: November 14, 2024 Communications Advisor Relationship Specialty Start Date End Date Amos Floyd [address] [place] [address] PCP - General Internal Medicine 09/03/24 Communications Advisor Relationship Specialty Start Date End Date Amos Floyd [address] [place] [address] PCP - General Internal Medicine 09/03/24 Team [...] 15, 2024 End: October 15, 2024 SAM HAPMTON Referring Provider Active St art: October 15, [...] Activ e Start: December 04, 2024 Dr. Jordan Marte MD Attending physician Active Start: December 04, 2024 Team Status: Active Member Role/Relationship Status Dates Dr. Amos Floyd MD Primary care physician Activ e Start: December 10, 2024 Dr. Jennifer Tarango , DO Attending physician Active Start: December 10, 2024 Dr. Jennifer Tarango , DO Referring Provider Active Start: December 10, 2024 Communications Advisor Relationship Specialty Start Date End Date FloydAmos hernandez Arnie [address] [place] [address] PCP - General Internal Medicine 09/03/24 Scheduled [...] minutes. 0458 (Given - Provider: Yevgeniy Odom RN)127 (Given - Provider: Aicha Call, ROSS) ondansetron [...] at 166.7 mL/hr, Administer over 90 Minutes, Chuck Wagon Cook to O.R., On Mon10/23/24 at 0545, For 1 dose, Preprocedure, Administer within 1 hour prior to incision. Vial Mate, Suspected Indication (Select all that apply): Surgical Prophylaxis 0745 (New Bag - Provider: Elijah Zaldivar, LIDIA - COFFEE SAMPLER) PRN Medication Order 10/22/2024 10/23/2024 10/24/2024 acetaminophen [...] BE BASED ON THE PRIMARY CLINICAL RECORDS. [employer] [facility]. provides no warranty or guarantee of the accuracy or completeness of information in this document.
--- OUTSIDE RECORDS SUMMARY | 2024-12-27 05:37 | XMS RPT_ITS | CCD ---
Author Organization [facility] Care Team Providers Care Oil Dipper Name Role Phone ABEL HOLM Unavailable Unavailable [...] Logan Tripathi Other Provider Unavailab tomas Palencia E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, E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 Diana Other Provider Dr. Alberto Gregorio Attending [...] Logan Tripathi Other Provider Unavailab tomas Palencia E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, E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 Diana Other Provider Dr. Alberto Gregorio Attending Provider Dr. Alberto Gregorio Referring Provider Dr. Sukhdeep Gaming Attending Provider Dr. Sindi Tarango Other Provider Dr. Sindi Tarango Attending Provider Dr. Amos Floyd Referring Provider Dr. Torsten aVnn Attending Provider Ron DISLA, NIGHAT Montes Attending Provider Amos Floyd MD Primary Care Provider Dr. Amos Floyd Primary Care Provider Dr. Amos Floyd Primary Care Provider Floyd, Dr. Trinidad Referring Provider NIGHAT Shannon Attending Provider Floyd, Dr. Triniadd Attending Provider Floyd, Dr. Trinidad Primary Care Provider Floyd, Dr. Trinidad Referring Provider NIGHAT Shannon Attending Provider Floyd, Dr. Trinidad Attending Provider Floyd, Dr. Trinidad Primary Care Provider Floyd, Dr. Trinidad Primary Care Provider Floyd, Dr. Trinidad Referring Provider INGHAT Shannon Attending Provider Mariel, Dr. Trinidad Primary Care Provider Floyd, Dr. Trinidad Referring Provider Dr. Torsten Vann Attending Provider Floyd, Dr. Trinidad Primary Care Provider Floyd, Dr. Trinidad Referring Provider Dr. Torsten Vann Attending Provider Roof E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, E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-Pasquale Prince Attending Provider Mariel, Dr. Trinidad Primary Care Provider Floyd, Dr. Trinidad Referring Provider Dr. Jordan Marte Attending Provider Dr. Amos Floyd Primary Care Provider Mariel, Dr. Trinidad Referring Provider Roof E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, E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-Pasquale Prince Attending Provider Dr. Jordan Marte Attending Provider ELISA MCDONOUGH Admitting Unavailable ELISA MCDONOUGH Attending Unavailable AMOS FLOYD Primary Care Unavailable Amos Floyd MD Primary Care Provider ELISA MCDONOUGH Admitting Unavailable AMOS FLOYD Primary Care Unavailable JAZMINE BRITT Attending Unavailable ALEXANDER GREGORY Consulting Unavailable Amos Floyd MD Primary Care Provider Fide WAREHOUSE PACKER.SUPPLY PERSON, Rocio M Unavailable Dr. Amos Floyd MD Primary Care Provider Dr. Jordan Marte MD Other Provider Basim Shannon Attending Provider Basim Shannon Referring Provider Dr. Torsten Vann MD Other Provider Dr. Jennifer Tarango DO Other Provider [phone] Jennifer Tarango DO Attending Provider Dr. [...] Dr. Jennifer Tarango DO Other Provider [phone] Heaven Michel Attending Provider Dr. Amos Floyd [...] CANAS Attending Provider MEMO CANAS Referring Provider [phone] MARIEL, AMOS Prince Primary Care Unavailable FLOYD, [...] Care Unavailable FLOYD, JIE Attending Unavailable FLOYD, JEI Primary Care Unavailable DUSARELIS Gonzalez Referring Unavailable [...] Care Physician Heaven Michel Attending Physician [phone] Estuardo ZELAYA, Dr. Ortega Attending Physician Uday [...] able Basim Shannon Attending Unavail able Estuardo, Kearney Consulting Unavailable Floyd, Amos Primary Care Unavailable Edwar, Torsten Consulting Unavailable Sukhdeep, Jennifer Consulting Unavailable Floyd, Amos Referring Unavailable Floyd, Amos Attending Unavailable Floyd, Amos Primary Care Unavailable Tucker Reyes Referring Unavailable CristyiterTucker Attending Unavailable Floyd, Amos Primary Care Unavailable Ron DISLA, Basim Montes Referring Unavail able Ron DISLA, Basim Montes Attending Unavail able Estuardo, Kearney Consulting Unavailable Floyd, Amos Primary Care Unavailable Edwar, Torsten Consulting Unavailable Sukhdeep, Jennifer Consulting Unavailable Ron DISLA, Basim Montes Referring Unavail able Ron DISLA, Basim Montes Attending Unavail able Estuardo, Jordan Consulting Unavailable Floyd, Amos Primary Care Unavailable Edwar, Torsten Consulting Unavailable Sukhdeep, Jennifer Consulting Unavailable RAYGOZA, RYA1 Referring Unavailable RAYGOZA, RYA1 Attending Unavailable Floyd, Amos Primary Care Unavailable Estuardo, Kearney Attending Unavailable Floyd, Amos Primary Care Unavailable Nixon Silverio Admitting Unavailable Nixon Silverio Referring Unavailable Nixon Silverio Consulting Unavailable Ted Toro Attending Unavailable Floyd, Amos Primary Care Unavailable Ted Toro Consulting Unavailable Floyd, Amos Referring Unavailable Tucker Reyes Attending Unavailable Floyd, Amos Primary Care Unavailable Lfoyd, Amos Referring Unavailable Floyd, Amos Primary Care Unavailable Hoang E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, Heaven Attending Unavailable Floyd, Amos Referring Unavailable [...] DISLA, Basim M Attending Unavail able Estuardo, Kearney Consulting Unavailable Floyd, Amos Primary Care Unavailable Edwar, Torsten Consulting Unavailable Sukhdeep, Jennifer Consulting Unavailable Ron DISLA, Basim M Referring Unavail able Ron DISLA, Basim M Attending Unavail able Estuardo, Jordan Consulting Unavailable Floyd, Amos Primary Care Unavailable Edwar, Torsten Consulting Unavailable Sukhdeep, Jennifer Consulting Unavailable Jairo Mitchell Attending Unavailable Paula, Jairo Consulting Unavailable Nixon Silverio Attending Unavailable Estuardo, Kearney Consulting Unavailable Floyd, Amos Primary Care Unavailable Estuardo, Kearney Attending Unavailable Estuardo, Jordan Attending Unavailable Floyd, [...] (antibiotic) (3 sources) Penicillins Drug Allergy 3 [facility] Quinolones (antibiotic) (3 sources) Ciprofloxacin Drug Allergy 0 [facility] (20 sources) ciprofloxacin; Translations: [CIPROFLOXACIN] Drug Allergy 0 Rash, Other [facility] Repository (20 sources) Penicillins; Translations: [PENICILLINS] Propensity to adverse reactions (disorder) 3 Rash, Other [facility] Repository (1 source) ALLERGIES NOT ON FILE; Translations: [ALLERGIES NOT ON FILE] Propensity to adverse reactions (disorder) [facility] Repository (20 sources) amLODIPine; Translations: [AMLODIPINE] Drug Allergy [facility] Work Phone: Medications Current Medications Medication [...] Comment on above: Take [address] [facility] two times a day for 5 days. [...] Comment on above: Take [address] [facility] once daily. cyproheptadine hydrochloride 4 mg oral [...] ML pen injector Discontinued 300 mg SQ .[id number] April 02, 2020 1:00am April 04, 2020 10:48am sinus Comment on above: Inject 300 mg SQ gwen ry 2 weeks .[id number] Dupilumab (16 sources) Start: 4 End: inject [...] RELIEF) 50 mcg/actuation nasal spray Use 1 Davis in each nostril once daily. 0 07/20/2021 Discontinued Comment on above: Use 1 Davis in each nostril once daily. 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: [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 (current) use of anticoagulants] 11-26-2021 Episodic Other aftercare (1 source) Anticoagulant effect; Translations: [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 (current) use of anticoagulants] Episodic Other circulatory [...] 5 11-12-2019 Episodic Other aftercare (3 sources) 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 (current) use of anticoagulants; Translations: [Long-term (current) [...] Kidney and Bladderon 025 Kidney and Bladder [facility] Imaging Services [address] [place], [place] [address] Kidney and Bladder MR#: [id number] Acct: [id number] Name: LINDA PERALTA Rep #: [id number] : 1945 F 79 From: Betsy Bocanegra MD PCP: Dr. Amos Floyd MD Status: [facility] Study: Kidney and Bladder Date of Exam: 12/10/24 Exam# [id number] Ordering Dr: Jennifer Tarango DO PROCEDURE: KIDNEY [...] Bladder IMPRESSION: No right hydronephrosis. Reading Location: [facility] CC: Dr. Jennifer Tarango DO; Dr. Amos Floyd MD Entry Level Web Developer: Signed Normal [facility] Anion gap in Serum or Plasma Ordered By: Jennifer Tarango on 12-03-2024 Anion gap [Moles/Vol] 10 mmol/L 5-15 [facility] BUN/creatinine ratioOrdered By: Jennifer Tarango on 12-03-2024 Urea nitrogen/Creatinine [Mass ratio] 22.8 mg/mg High - [facility] Basic Metabolic Profile (BMP )on 12-03-2024 BUN/CRE 22.6 RATIO High 12-09 [facility] Comment on above: Performed By: #### L 9200.0000 #### [facility] [address] [place], [address] CO2 [Moles/Vol] 22.9 mmol/L Normal 21.0-32.0 [facility] Comment on above: Performed By: #### L 9200.0000 #### [facility] [address] [place], [address] Creatinine [Mass/Vol] 1.72 mg/dL High 0.70-1.20 [facility] Comment on above: Performed By: #### L 9200.0000 #### [facility] [address] [place], [address] GAP 11 Normal 07-04 [facility] Comment on above: Performed By: #### L 9200.0000 #### [facility] [address] [place], [address] Carbon dioxide, total [Moles /volume] in Central venous bloodOrdered By: Jennifer Tarango on 12-03-2024 CO2 [Moles/Vol] 23.5 mmol/L 21.0-32.0 [facility] Chloride assayOrdered By: Dallas Tarango on 12-03-2024 Chloride [Moles/Vol] 108 mmol/L 98-108 [facility] Glomerular filtration rate ( GFR) estimation/1.73 sq m using serum, plasma, or whole bOrdered By: Jennifer Tarango on 12-03-2024 GFR/1.73 sq M.predicted among non-blacks MDRD (S/P/Bld) [Vol rate/Area] 30 mL/min/{1.73_m2} Low >60 [facility] Comment on above: mL/min/1.73m2 CKD-EP I Creatinine Equation (2020) Potassium measurement (mass/ volume)Ordered By: Jennifer Tarango on 12-03-2024 Potassium (Unsp spec) [Mass/Vol] 4.6 mmol/L 3.3-5.1 [facility] Renal Profileon 12-03-2024 Albumin [Mass/Vol] 3.9 g/dL Normal 3.4-4.8 [facility] Comment on above: Performed By: #### L 9200.0000 #### [facility] [address] [place], [address] BUN/CRE 22.8 RATIO High 10- [facility] Comment on above: Performed By: #### L 9200.0000 #### [facility] [address] [place], [address] Calcium [Mass/Vol] 9.4 mg/dL Normal 7.6-11.0 [facility] Comment on above: Performed By: #### L 9200.0000 #### [facility] [address] [place], [address] Chloride [Moles/Vol] 108 mmol/L Normal 98-108 [facility] Comment on above: Performed By: #### L [id number] #### [facility] [address] [place], [address] CO2 [Moles/Vol] 23.5 mmol/L Normal 21.0-32.0 [facility] Comment on above: Performed By: #### L 9200.0000 #### [facility] [address] [place], [address] Creatinine [Mass/Vol] 1.69 mg/dL High 0.70-1.20 [facility] Comment on above: Performed By: #### L 9200.0000 #### [facility] [address] [place], [address] GAP 10 Normal 5-15 [facility] Comment on above: Performed By: #### L 9200.0000 #### [facility] [address] [place], [address] GFR/1.73 sq M.predicted among non-blacks MDRD (S/P/Bld) [Vol rate/Area] 30 mL/min/{1.73_m2} Low >60 [facility] Comment on above: Result Comment: mL/m in/1.73m2 CKD-EPI Creatinine Equation (2020) Performed By: #### L 9200.0000 #### [facility] [address] [place], [address] Glucose [Mass/Vol] 83 mg/dL Normal 70-99 [facility] Comment on above: Performed By: #### L 9200.0000 #### [facility] [address] [place], [address] Phosphate [Mass/Vol] 2.6 mg/dL Low 2.7-4.5 [facility] Comment on above: Performed By: #### L 9200.0000 #### [facility] [address] [place], [address] Potassium [Moles/Vol] 4.6 mmol/L Normal 3.3-5.1 [facility] Comment on above: Performed By: #### L [id number] #### [facility] [address] [place], [address] Sodium [Moles/Vol] 142 mmol/L Normal 133-145 [facility] Comment on above: Performed By: #### L 9200.0000 #### [facility] [address] [place], [place], [address] Urea nitrogen [Mass/Vol] 39 mg/dL High 06-08 [facility] Comment on above: Performed By: #### L 9200.0000 #### [facility] [address] [place], [place], [address] Serum creatinine measurement (mass/volume)Ordered By: Jennifer Tarango on 12-03-2024 Creatinine [Mass/Vol] 1.69 mg/dL High 0.70-1.20 [facility] Serum glucose measurement (m ass/volume)Ordered By: Jennifer Tarango on 12-03-2024 Glucose [Mass/Vol] 83 mg/dL 70-99 [facility] Serum or plasma albumin scott urement (mass/volume)Ordered By: Jennifer Tarango on 12-03-2024 Albumin [Mass/Vol] 3.9 g/dL 3.4-4.8 [facility] Serum or plasma calcium scott urement (mass/volume)Ordered By: Jennifer Taranog on 12-03-2024 Calcium [Mass/Vol] 9.4 mg/dL 7.6-11.0 [facility] Serum or plasma urea nitroge n measurement (mass/volume)Ordered By: Jennifer Tarango on 12-03-2024 Urea nitrogen [Mass/Vol] 39 mg/dL High 06-08 [facility] Sodium levelOrdered By: Dustin Tarango on 12-03-2024 Sodium [Moles/Vol] 142 mmol/L 133-145 [facility] Office Visiton 11-28-2024 Follow-up visit [id number] Ingris Peralta 1945 F Date Provider Department Center 11/28/2024 [id number] JOEL [facility] [address] Ar Family History Problem Relation Age of Onset Heart attack Mother Stroke Father Family Status - Relation Status Age at Mother Father Level of Service:43173 IA OFFICE/OUTPATIENT ESTABLISHED MOD MDM 30 MIN Reason for Visit and Comments: Cardiac Valve Problem [1334] Normal [facility] SH[facility] Progress Noteon 11-28-2024 Progress Note [facility] CARDIOL [facility] - [place] [address] [facility] [address] Dept: [phone] Dept Visit type: Established : 1945 Reason for Visit: Cardiac Valve Problem Assessment and Plan 1. Chronic systolic heart failure (HCC) Class III. Stage C Continue metoprolol. Resume Lisinopril 5 mg daily. I will have her see the heart failure team given her severe LV dysfunction, Wharton's disease, and CKD. 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 Na/K have remained stable [address] Ad[facility] Subjective Ms Peralta is an 79 yr old female known to Dr. 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 She had an admission at [facility] in July for UTI after heart [...] specialty: Independent interpretation of tests: Basim Joel, WAREHOUSE PACKER - SUPPLY PERSON [1] Allergies Allergen Reactions Amlodipine Swelling Ciprofloxacin [...] Disp: , (more content not included)... Normal [employer] [facility] US Heart TransthoracicOrdere d By: Jefferson Adorno on 11-28-2024 Aortic Arch 2.5 cm [employer] Phone: [phone] Aortic Sinus Valsalva 3.1 cm [employer] Phone: [phone] Aortic Sinus Valsalva Index 1.81 cm/m2 [employer] Phone: Aortic valve Mean systole pressure gradient by US.doppler derived full Bernoulli 10 mmHg [employer] Phone: Aortic valve Orifice area by US 2.5 cm2 [employer] Phone: Aortic valve Peak systolic flow by US.doppler 1.5 m/s [employer] Phone: Ascending Aorta 3.4 cm [employer] Phone: Ascending Aorta Index 1.99 cm/m2 [facility] [employer] Phone: AV Area by Peak Velocity 1.1 cm2 [employer] Phone: AV Area by VTI 0.6 cm2 [employer] Phone: AV AT 91.34 ms [employer] Phone: AV Peak Gradient 18 mmHg [employer] Phone: AV Peak Velocity 2.1 m/s [facility] Phone: AV Velocity Ratio 0.43 [employer] Phone: AV VTI 51.[address] [facility] [employer] Work Phone: OMID/BSA Peak Velocity 0.6 cm2/m2 [facility] [employer] Work Phone: OMID/BSA VTI 0.4 cm2/m2 [facility] [employer] Work Phone: E/E' Lateral 10.14 [facility] [email or web address] Work Phone: E/E' Ratio (Averaged) 7.8 [facility] [employer] Work Phone: E/E' Septal 5.46 [facility] [employer] Phone: Est. RA Pressure [address] [facility] [employer] Phone: Fractional Shortening 2D 6 % 28 - 44 % [facility] Phone: Global Longitudinal Strain -6.8 % [facility] [employer] Phone: Interpretation and review of laboratory results Abnormal [facility] Phone: IVC Diameter 1.8 cm [facility] Phone: IVSd 1.3 cm Abnormal 0.6 - 0.9 cm [facility] Phone: LA Diameter 4.7 cm [facility] Phone: LA Size Index 2.75 cm/m2 [facility] Phone: LA Volume 2C 79 mL Abnormal 22 - 52 mL [facility] Phone: LA Volume 4C 69 mL Abnormal 22 - 52 mL [facility] Phone: LA Volume A/L 79 mL [facility] Phone: LA Volume BP 75 mL Abnormal 22 - 52 mL [facility] Phone: LA Volume Index 2C 46 mL/m2 Abnormal 16 - 34 mL/m2 [facility] Phone: LA Volume Index 4C 40 mL/m2 Abnormal 16 - 34 mL/m2 [facility] Phone: LA Volume Index A/L 46 mL/m2 16 - 34 mL/m2 [facility] [employer] Work Phone: LA Volume Index BP 44 ml/m2 Abnormal 16 - 34 ml/m2 [facility] [employer] Work Phone: Left ventricular Ejection fraction by US.2D+Calculated by biplane method of disks 20 % Abnormal 55 - 100 % [facility] Work Phone: LV E' Lateral Velocity 7 cm/s [facility] Work Phone: LV E' Septal Velocity 13 cm/s [facility] Work Phone: LV EDV A2C [address] [facility] [employer] Work Phone: LV EDV A4C [address] [facility] [employer] Work Phone: LV EDV BP 133 mL Abnormal 56 - [address] [facility] [employer] Work Phone: LV EDV Index A2C 77 mL/m2 [facility] [employer] Work Phone: LV EDV Index A4C 76 mL/m2 [facility] [employer] Work Phone: LV EDV Index BP 78 mL/m2 [facility] [employer] Work Phone: LV Ejection Fraction A2C 24 % [facility] [employer] Work Phone: LV Ejection Fraction A4C 13 % [facility] [employer] Work Phone: LV ESV A2C [address] [facility] [employer] Work Phone: LV ESV A4C [address] [facility] [employer] Work Phone: LV ESV BP 107 mL Abnormal 19 - [address] [facility] [employer] Work Phone: LV ESV Index A2C 58 mL/m2 [facility] [employer] Work Phone: LV ESV Index A4C 66 mL/m2 [facility] [employer] Work Phone: LV ESV Index BP 63 mL/m2 [facility] [employer] Work Phone: LV Mass 2D 295.6 g Abnormal 67 - [address] [facility] [employer] Work Phone: LV Mass 2D Index 172.9 g/m2 Abnormal 43 - 95 g/m2 [facility] Work Phone: LV RWT Ratio 0.48 [facility] [employer] Work Phone: LVIDd 5.4 cm Abnormal 3.9 - 5.[address] [facility] [employer] Work Phone: LVIDd Index 3.16 cm/m2 [facility] [employer] Work Phone: LVIDs 5.[address] [facility] [employer] Work Phone: LVIDs Index 2.98 cm/m2 [facility] [employer] Work Phone: LVOT Cardiac Output 2.4 liter/minute [facility] [employer] Work Phone: LVOT Diameter 1.[address] [facility] [employer] Work Phone: LVOT Mean Gradient [address] [facility] [employer] Work Phone: LVOT Peak Gradient [address] [facility] [employer] Work Phone: LVOT Peak Velocity 0.9 m/s [facility] [employer] Work Phone: LVOT Stroke Volume Index 18.9 mL/m2 [facility] [employer] Work Phone: LVOT SV 32.[address] [facility] [employer] Work Phone: LVOT VTI 12.[address] [facility] [employer] Work Phone: LVOT:AV VTI Index 0.25 [facility] [employer] Work Phone: LVPWd 1.3 cm Abnormal 0.6 - 0.[address] [facility] [employer] Work Phone: MR VTI 194.[address] [facility] [employer] Work Phone: MV A Velocity 0.83 m/s [facility] [employer] Work Phone: MV E Velocity 0.71 m/s [facility] [employer] Work Phone: MV E Wave Deceleration Time 162.[address] [facility] [employer] Work Phone: MV E/A 0.86 [facility] [employer] Work Phone: MV Nyquist Velocity 36 cm/s [facility] [employer] Work Phone: MV Regurg Velocity PISA 5.6 m/s [facility] [employer] Work Phone: RA Area 4C 85.[address] [facility] [employer] Work Phone: RA Area 4C 79.[address] [facility] [employer] Work Phone: RV Basal Dimension 4.[address] [facility] [employer] Work Phone: RV Free Wall Peak S' 17 cm/s [facility] [employer] Work Phone: RV Longitudinal Dimension 8.[address] [facility] [employer] Work Phone: RV Mid Dimension 2.[address] [facility] [employer] Work Phone: RVSP [address] [facility] [employer] Work Phone: Sinotubular Junction 2.1 cm [facility] [employer] Work Phone: TAPSE 3.[address] [facility] [employer] Work Phone: TR Max Velocity 3.21 m/s [facility] [employer] Work Phone: TR Peak Gradient [address] [facility] [employer] Work Phone: TR Peak Velocity PISA 2.7 m/s [facility] [employer] Work Phone: TR VTI 86.[address] [facility] [employer] Work Phone: [facility] [employer] Phone: Heart Transthoracicon Left Ventricle: Left ventricle [...] CPACS Cardiology Visit Reporton Cardiology Visit Report [facility] [address] [place], [place] [address] OFFICE VISIT Date of Service: 11/14/24 MR#: [id number] Acct: [id number] Name: LINDA PERALTA Rep #: [id number] : 1945 Provider: Dr. Jordan Marte MD Age/Sex: 79/F Location: [facility] Status: Signed HPI HPI History [...] Monitor Intake Visit Reasons: 6 M FU Hand Paster Required: No Accompanied by: Daughter Is patient in pain?: No Allergies ciprofloxacin (From Cipro) Allergy (Verified 11/14/24 09:05) Rash Penicillins Allergy (Verified 11/14/24 09:05) Rash Medications ???Medication ???Instructions ???Recorded ???Confirmed ???Type acetaminophen 500 mg tablet 1,000 mg (2 x 500 mg) PO Q6H PRN 0 04/08/20 11/14/24 Rx Pain Score 1-10 denosumab 60 mg/mL subcutaneous 60 mg subcut [id number] #1 mL 11/14/24 Rx syringe (Prolia) nitroglycerin [...] (BMI 25.0-29.9) Aortic stenosis Aortic stenosis, severe Wharton's disease MVP (mitral valve prolapse) Aortic stenosis Hypokalemia Elevated serum creatinine Acute prerenal azotemia History of kidney cancer Chronic kidney disease Hypercalcemia Frequent falls Closed head injury (03/20/20) Hypoglycemia (03/20/20) Acute electrocardiogram changes Atopic dermatitis Osteopenia determined by x-ray History of pulmonary embolism [facility] (current) use of anticoagulants Orthostatic hypotension Chronic kidney disease, stage 3 Wharton disease Essential (primary) hypertension Hyperlipidemia Recurrent deep [...] Other History of DVT (deep vein thrombosis) [facility] (current) use of anticoagulants Social History Smoking Status: Never smoker alcohol intake: never substance use type: does not use caffeine: Yes what type of physical activity do you participate in: walking seatbelt use: always do you feel safe at home: Yes additional social history: [place]- Re (more content not included)... Normal [facility] 36on 11-04-2024 36 Renal function stabl e. Advised to take Lasix 20 mg daily for 3 days and then re- evaluate by phone. Weight 150. BP 120 systolic, HR 70s. Mild dizziness unchanged. Breathing OK, walking more. mm Normal [facility] 36 Did you call patient RE: her lab results? Normal [facility] 29on 10-31-2024 29 Addended by: JAQUELIN MONCADA on: 10/31/2024 02:58 PM Modules accepted: Orders Normal [facility] 37on 10-31-2024 37 If weight gain great er than 3lbs/24 hours or > 5lbs in one week. Take 1/2 Lasix (furosemide) Normal [facility] [facility] BASIC METABOLIC PANELon 10-21 Anion gap [Moles/Vol] 6 mmol/L Normal 3-13 [facility] Comment on above: Performed By: #### L AB15 ####Telegraph Lineman: JAQUELIN RICO ([id number])[facility] ([address] Calcium [Mass/Vol] 9.4 mg/dL Normal 8.8-10.0 [facility] Comment on above: Performed By: #### L AB15 ####Telegraph Lineman: JAQUELIN RICO ([phone])[facility] ([facility] [place] [address] Chloride [Moles/Vol] 110 mmol/L High 98-107 [facility] Comment on above: Performed By: #### L AB15 ####Telegraph Lineman: JAQUELIN RICO ([phone])[facility] ([facility])[address] [place] [address] CO2 [Moles/Vol] 27 mmol/L Normal 23-31 [facility] Comment on above: Performed By: #### L AB15 ####Telegraph Lineman: JAQUELIN RICO ([phone])[facility] ([facility])[address] [place] [address] Creatinine [Mass/Vol] 1.47 mg/dL High 0.57-1.11 [facility] Comment on above: Performed By: #### L AB15 ####Telegraph Lineman: JAQUELIN RICO ([phone])[facility] ([facility])[address] [place] [address] GLOMERULAR FILTRATION RATE ML/MIN/1.73 SQ M.PREDICTED 35.7 mL/min/1.73m*2 Low >60.0 [facility] Comment on above: Result Comment: Calc ulation based on the Chronic Kidney Disease Epidemiology Collaboration (CKD-EPI) equation refit without adjustment for race Performed By: #### L AB15 ####Telegraph Lineman: JAQUELIN RICO ([phone])[facility] ([facility])[address] [place] [address] [place] Glucose [Mass/Vol] 62 mg/dL Low 82-115 [facility] Comment on above: Performed By: #### L AB15 ####Telegraph Lineman: JAQUELIN RICO ([id number])[facility] ([facility])[address] [place] [address] [place] Potassium [Moles/Vol] 4.7 mmol/L Normal 3.5-5.1 [facility] Comment on above: Result Comment: [facility] potassium values may be up to 0.5 mmol/L lower than serum values. Performed By: #### L AB15 ####Telegraph Lineman: JAQUELIN RICO ([phone])[facility] ([facility])[address] [place] [address] Sodium [Moles/Vol] 143 mmol/L Normal 136-145 [facility] Comment on above: Performed By: #### L AB15 ####Telegraph Lineman: JAQUELIN RICO ([phone])[facility] ([facility])[address] [place] [address] Urea nitrogen [Mass/Vol] 32 mg/dL High 9-23 [facility] Comment on above: Performed By: #### L AB15 ####Telegraph Lineman: JAQUELIN RICO ([phone])[facility] ([facility])[address] [place] [address] Basic metabolic 1998 panelon 10-31-2024 Anion gap [Moles/Vol] 6 mmol/L 3 - 13 mmol/L [facility] Calcium [Mass/Vol] 9.4 mg/dL 8.8 - 10. 0 mg/dL [facility] Chloride [Moles/Vol] 110 mmol/L High 98 - 10 7 mmol/L [facility] CO2 [Moles/Vol] 27 mmol/L 23 - 31 mmol/L [facility] Creatinine [Mass/Vol] 1.47 mg/dL High 0.57 - 1.11 mg/dL [facility] GFR/1.73 sq M.predicted (S/P/Bld) [Vol rate/Area] 35.7 mL/min Low - PINF [facility] Comment on above: Calculation based on the Chronic Kidney Disease Epidemiology Collaboration (CKD-EPI) equation refit without adjustment for race Glucose [Mass/Vol] 62 mg/dL Low 82 - 115 mg/dL [facility] Interpretation and review of laboratory results Abnormal [facility] Potassium [Moles/Vol] 4.7 mmol/L 3.5 - 5.1 mmol/L [facility] Comment on above: Plasma potassium olga lidia ues may be up to 0.5 mmol/L lower than serum values. Sodium [Moles/Vol] 143 mmol/L 136 - 145 mmol/L [facility] Urea nitrogen [Mass/Vol] 32 mg/dL High 9 - 23 mg/dL [facility] Office Visiton 10-31-2024 Follow-up visit [id number] Ingris Peralta 1945 F Date Provider Department Center 10/31/2024 [id number] JOEL [facility] [address] Family History Problem Relation Age of Onset Heart attack Mother Stroke Father Family Status - Relation Status Age at Mother Father Level of Service:89185 [place] OFFICE/OUTPATIENT ESTABLISHED MOD MDM 30 MIN Reason for Visit and Comments: Cardiac Valve Problem [1334] Hospital Follow-up [832] Normal [facility] Progress Noteon 10-31-2024 Progress Note [facility] - [place] [address] [place] [address] Dept: [phone] Dept Visit type: Established : 1945 Reason for Visit: Cardiac Valve Problem and Hospital Follow-up Assessment and Plan 1. Severe aortic stenosis S/p TAVR. Contiue Eliquis, SBE prophylaxis.Echo one month 2. 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 Chronic [...] a PMH for CAD, HPL, DVT, PE, Wharton's disease, CKD s/p left nephrectomy (donated) and [...] specialty: Independent interpretation of tests: Basim Joel, [employer]ER - SUPPLY PERSON [1] Allergies Allergen Reactions Amlodipine Swelling Ciprofloxacin [...] Rfl: [3] Past Medical History: Diagnosis Date Wharton anemia 2010 [4] Past Surgical History: Procedure Laterality Date BLADDER REPAIR CARDIAC CATHETERIZATION N/A 10/23/2024 Performed by Memo Canas MD at [facility] OR CYSTECTOMY (HISTORICAL) LAPAROSCOPIC NEPHRECTOMY (HISTORICAL) Left TOTAL ABDOMINAL HYSTERECTOMY [5] Family History Problem Relation Name Ag (more content not included)... Normal [facility] CNOVon 10-29-2024 CNOV Office Visit (INTMWS ) -------- LINDA PERALTA ([id number]) 1945 F Date Time Provider Department 10/29/24 10:40 AM AMOS FLOYD INTMWS During your visit today, we recorded the following information about you: Temperature Pulse Respiration Blood pressure 97.5 degrees 60/minute 20/minute 112/72 Weight 69.6 kg Amos Floyd MD 10/29/2024 12:03 PM Addendum Subjective Linda Peralta is a 79 year old female here with her daughter. She had TAVR at [facility] last week. She had some fluid retention prior to surgery and was prescribed furosemide 40 mg daily for 3 days with weight loss of around 20 pounds. She started regaining weight and was again advised 2 days of furosemide last week. Echo last week showed EF dropped to 20%. They have another echocardiogram scheduled. She has a follow up with [facility] this , and the [facility] later this month. ACTIVE PROBLEM [...] valve s (more content not included)... Normal [facility] NNI25ro 10-29-2024 ECG01 Ventricular Rate : 1 00 BPM Atrial Rate : 100 BPM P-R Interval : 142 ms QRS Duration : 88 ms Q-T Interval : 362 ms QTC Calculation(Bazett) : 466 ms Calculated P [place] : 43 degrees Calculated R [place] : -27 degrees Calculated T [place] : 101 degrees NORMAL SINUS RHYTHM LEFT VENTRICULAR HYPERTROPHY WITH REPOLARIZATION ABNORMALITY ( R in aVL , Noel product ) ABNORMAL ECG Confirmed by MD GALLARDO QARAB ([id number]) on 10/31/2024 5:12:58 PM NAME : LINDA PERALTA PID : [id number] : 1945 Gender : Female Race : ORD : Procedure Date : Oct 29 2024 11:31:04 Edit Date : Oct 31 2024 17:19:41 Diagnosis: NORMAL SINUS RHYTHM LEFT VENTRICULAR HYPERTROPHY WITH REPOLARIZATION ABNORMALITY ( R in aVL , [place] product ) ABNORMAL ECG Confirmed by MD GALLARDO QARAB ([id number]) on 10/31/2024 5:12:58 PM Test Reason : Location : [address] : [facility] Overread By : MD GALLARDO QARAB Edited By : MD GALLARDO QARAB Referred By : Amos Floyd Acquired by : Cassandra Vieira [facility] 36on 10-28-2024 36 Per TVT registry guidelines, 5 meter walk test completed in office on 09/03/24. 7 seconds, 7 seconds, 7 seconds Normal [facility] BASIC METABOLIC PANELon 09-0 Anion gap [Moles/Vol] 7 mmol/L Normal 3-13 [facility] Comment on above: Performed By: #### L AB15 ####Telegraph Lineman: JAQUELIN RICO ([phone])[facility] ([facility])[address] [place] [address] Calcium [Mass/Vol] 8.2 mg/dL Low 8.8-10.0 [facility] Comment on above: Performed By: #### L AB15 ####Telegraph Lineman: JAQUELIN RICO ([phone])[facility] ([facility])[address] [place] [address] [place] Chloride [Moles/Vol] 111 mmol/L High 98-107 [facility] Comment on above: Performed By: #### L AB15 ####Telegraph Lineman: JAQUELIN RICO ([phone])[facility])[address] [place] [address] CO2 [Moles/Vol] 18 mmol/L Low 23-31 [facility] Comment on above: Performed By: #### L AB15 ####Telegraph Lineman: JAQUELIN RICO ([phone])[facility] ([facility])[address] [place] [address] Creatinine [Mass/Vol] 1.57 mg/dL High 0.57-1.11 [facility] Comment on above: Performed By: #### L AB15 ####Telegraph Lineman: JAQUELIN RICO ([phone])[facility])[address] [place] [address] [place] GLOMERULAR FILTRATION RATE ML/MIN/1.73 SQ M.PREDICTED 33.0 mL/min/1.73m*2 Low >60.0 [facility] Comment on above: Result Comment: Calc ulation based on the Chronic Kidney Disease Epidemiology Collaboration (CKD-EPI) equation refit without adjustment for race Performed By: #### L AB15 ####Telegraph Lineman: JAQUELIN RICO ([phone])[facility])[address] [place] [address] Glucose [Mass/Vol] 108 mg/dL Normal 82-115 [facility] Comment on above: Performed By: #### L AB15 ####Telegraph Lineman: JAQUELIN [id number])[facility] ([facility])[address] [place] [address] Potassium [Moles/Vol] 4.4 mmol/L Normal 3.5-5.1 [facility] Comment on above: Result Comment: [facility] potassium values may be up to 0.5 mmol/L lower than serum values. Performed By: #### L AB15 ####Telegraph Lineman: JAQUELIN RICO ([phone])[facility] ([facility])[address] [place] [address] Sodium [Moles/Vol] 136 mmol/L Normal 136-145 [facility] Comment on above: Performed By: #### L AB15 ####Telegraph Lineman: JAQUELIN RICO ([phone])[facility])[address] [place] [address] Urea nitrogen [Mass/Vol] 38 mg/dL High 9-23 [facility] Comment on above: Performed By: #### L AB15 ####Telegraph Lineman: JAQUELIN RICO ([phone])[facility])[address] [place] [address] Basic metabolic 1998 panelon 10-24-2024 Anion gap [Moles/Vol] 7 mmol/L 3 - 13 mmol/L [facility] Calcium [Mass/Vol] 8.2 mg/dL Low 8.8 - 10. 0 mg/dL [facility] Chloride [Moles/Vol] 111 mmol/L High 98 - 10 7 mmol/L [facility] CO2 [Moles/Vol] 18 mmol/L Low 23 - 31 mmol/L [facility] Creatinine [Mass/Vol] 1.57 mg/dL High 0.57 - 1.11 mg/dL [facility] GFR/1.73 sq M.predicted (S/P/Bld) [Vol rate/Area] 33 mL/min Low - PINF [facility] Comment on above: Calculation based on the Chronic Kidney Disease Epidemiology Collaboration (CKD-EPI) equation refit without adjustment for race Glucose [Mass/Vol] 108 mg/dL 82 - 115 mg/dL [facility] Interpretation and review of laboratory results Abnormal [facility] Potassium [Moles/Vol] 4.4 mmol/L 3.5 - 5.1 mmol/L [facility] Comment on above: Plasma potassium olga lidia ues may be up to 0.5 mmol/L lower than serum values. Sodium [Moles/Vol] 136 mmol/L 136 - 145 mmol/L [facility] Urea nitrogen [Mass/Vol] 38 mg/dL High 9 - 23 mg/dL [facility] CBC (HEMOGRAM)on 10-24-2024 Erythrocyte distribution width (RBC) [Ratio] 15.1 % High 11.5-15.0 [facility] Comment on above: Performed By: #### L [id number] ####Telegraph Lineman: JAQUELIN RICO ([phone])[facility])[address] [place] [address] Hematocrit (Bld) [Volume fraction] 40.3 % Normal 35.0-47.0 [facility] Comment on above: Performed By: #### L AB294 ####Telegraph Lineman: JAQUELIN RICO ([phone])[facility])[address] [place] [address] Hemoglobin (Bld) [Mass/Vol] 12.8 g/dL Normal 11.7-16.0 [facility] Comment on above: Performed By: #### L AB294 ####Telegraph Lineman: JAQUELIN RICO ([id number])[facility])[address] [place] [address] MCH (RBC) [Entitic mass] 29.3 pg Normal 26.0-34.0 [facility] Comment on above: Performed By: #### L AB294 ####Telegraph Lineman: JAQUELIN RICO ([phone])[facility])[address] [place] [address] MCHC 31.8 % Normal 30.5-36.0 [facility] Comment on above: Performed By: #### L AB294 ####Telegraph Lineman: JAQUELIN RICO ([phone])[facility])[address] [place] [address] MCV (RBC) [Entitic vol] 92.2 fL Normal 77.0-99.0 [facility] Comment on above: Performed By: #### L [id number] ####Telegraph Lineman: JAQUELIN RICO ([phone])[facility])[address] [place] [address] Platelet mean volume (Bld) [Entitic vol] 12.5 fL Normal 9.0-12.7 [facility] Comment on above: Performed By: #### L AB294 ####Telegraph Lineman: JAQUELIN RICO ([phone])[facility] ([facility])[address] [place] [address] Platelets (Bld) [#/Vol] 132 10*3/uL Low 140-440 [facility] Comment on above: Performed By: #### L AB294 ####Telegraph Lineman: JAQUELIN RICO ([id number])[facility])[address] [place] [address] RBC (Bld) [#/Vol] 4.37 10*6/uL Normal 3.80-5.20 [facility] Comment on above: Performed By: #### L [id number] ####Telegraph Lineman: JAQUELIN RICO ([phone])[facility])[address] [place] [address] WBC (Bld) [#/Vol] 9.6 10*3/uL Normal 3.6-10.7 [facility] Comment on above: Performed By: #### L [id number] ####Telegraph Lineman: JAQUELIN RICO ([phone])[facility])[address] [place] [address] CBC panel Auto (Bld)on 10-24 Erythrocyte distribution width (RBC) [Ratio] 15.1 % High 11.5 - 15.0 % [facility] Hematocrit (Bld) [Volume fraction] 40.3 % 35.0 - 47.0 % [facility] Hemoglobin (Bld) [Mass/Vol] 12.8 g/dL 11.7 - 16.0 g/dL [facility] Interpretation and review of laboratory results Abnormal [facility] MCH (RBC) [Entitic mass] 29.3 pg 26.0 - 34.0 pg [facility] MCHC (RBC) [Mass/Vol] 31.8 % 30.5 - 36.0 % [facility] MCV (RBC) [Entitic vol] 92.2 fL 77.0 - 99.[address] [facility] Platelet mean volume (Bld) [Entitic vol] 12.5 fL 9.0 - 12.[address] [facility] Platelets (Bld) [#/Vol] 132 10*3/uL Low 140 - 440 10*3/uL [facility] RBC (Bld) [#/Vol] 4.37 10*6/uL 3.80 - 5.2 0 10*6/uL [facility] WBC (Bld) [#/Vol] 9.6 10*3/uL 3.6 - 10.7 10*3/uL [facility] ECG 12-LEADon 10-24-2024 ECG 12-LEAD IMPRESSION: Sinus rhythm Atrial premature complex Probable left atrial enlargement Nonspecific T wave changes Electronically Signed On 10-24-2024 15:16:18 EDT by Frandy Mccoy Normal [facility] No Panel InformationOrdered By: Frandy Mccoy on 10-24-2024 P [place] 61 degrees [employer] Work Phone: IA Interval 145 ms [employer] Work Phone: QRS [place] 2 degrees [employer] Work Phone: QRSD Interval 89 ms [employer] Phone: QT Interval 371 ms [employer] Work Phone: QTC Interval 445 ms [employer] Work Phone: T Wave [place] 142 degrees [employer] Work Phone: [employer] Work Phone: No Panel Informationon 10-24 Sinus rhythm Atrial premature complex Probable left atrial enlargement Nonspecific T wave changes Electronically Signed On 10-24-2024 15:16:18 EDT by Frandy Mccoy CV Frandy Vanessa M D - 10/24/2024 IMPRESSION: Sinus rhythm Atrial premature complex Probable left atrial enlargement Nonspecific T wave changes Electronically Signed On 10-24-2024 15:16:18 EDT by Frandy Mccoy [facility] Nursing Noteon 10-24-2024 Nursing Note All discharge instructions gone over with pt and family. Med rec revoewed in depth. All restrictions, activity, site care and precautions gone over along with appointments. Saline lock removed. To daughters car via wheelchair, discharged home. Normal [facility] Nursing Note Pt had a restful nig ht and even got up the the bathroom during the night with standby assist. Pt is up in a chair eating her Breakfast. Normal [facility] Progress Noteon 10-24-2024 Progress Note Physician Response Please review the following and provide your response below. Please clarify which of the following accurately describes the patient's CKD Stage: CKD Stage 3 (GFR 30-59) This documentation will become part of the patient's medical record. Normal [facility] Progress Note PHYSICAL THERAPY [facility] Name/MRN: Linda Peralta ([id number]) Date: 10/24/2024 PT orders received per Oniel activity/mobility score. Patient currently with Oniel activity/mobility score greater than 2. Per therapy services guidelines, will discharge PT orders. Please place regular PT eval/treat orders if deemed appropriate. Shea Perez, PT Normal [facility] US Heart TransthoracicOrdere d By: Jefferson Adorno on 10-24-2024 Aortic Sinus Valsalva 3.1 cm [employer] Phone: Aortic Sinus Valsalva Index 1.86 cm/m2 [employer] Phone: Aortic valve Mean systole pressure gradient by US.doppler derived full Bernoulli 5 mmHg [employer] Phone: Aortic valve Orifice area by US 3.1 cm2 [employer] Phone: Aortic valve Peak systolic flow by US.doppler 1.1 m/s [employer] Phone: Ascending Aorta 3.4 cm [employer] Phone: [phone] Ascending Aorta Index 2.04 cm/m2 [employer] Phone: AV Area by Peak Velocity 1.7 cm2 [employer] Phone: AV Area by VTI 1.[address] [facility] Work Phone: AV AT 79.[address] [facility] Work Phone: AV Peak Gradient [address] [facility] Work Phone: AV Peak Velocity 1.5 m/s [facility] Work Phone: AV Velocity Ratio 0.53 [facility] Work Phone: AV VTI 28.[address] [facility] Work Phone: OMID/BSA Peak Velocity 1 cm2/m2 Sum [facility] Work Phone: OMID/BSA VTI 0.9 cm2/m2 [facility] Work Phone: E/E' Lateral 17 [facility] Work Phone: E/E' Ratio (Averaged) 14.57 [facility] Work Phone: E/E' Septal 12.14 [facility] Work Phone: Est. RA Pressure [address] [facility] Work Phone: Fractional Shortening 2D 10 % 28 - 44 % [facility] Work Phone: Global Longitudinal Strain -9.4 % [facility] Work Phone: [phone] Interpretation and review of laboratory results Abnormal [facility] Work Phone: IVC Diameter 2.5 cm [facility] Work Phone: IVSd 1 cm Abnormal 0.6 - 0.9 cm [facility] Work Phone: LA Volume 2C 82 mL Abnormal 22 - 52 mL [facility] Work Phone: LA Volume 4C 49 mL 22 - 52 mL [facility] Work Phone: LA Volume A/L [address] [facility] Work Phone: LA Volume BP 63 mL Abnormal 22 - 52 mL [facility] Work Phone: LA Volume Index 2C 49 mL/m2 Abnormal 16 - 34 mL/m2 [facility] Work Phone: LA Volume Index 4C 29 mL/m2 16 - 34 mL/m2 [facility] Work Phone: LA Volume Index A/L 41 mL/m2 16 - 34 mL/m2 [facility] Work Phone: LA Volume Index BP 38 ml/m2 Abnormal 16 - 34 ml/m2 [facility] Work Phone: Left ventricular Ejection fraction by US.2D+Calculated by biplane method of disks 18 % Abnormal 55 - 100 % [facility] Work Phone: LV E' Lateral Velocity 5 cm/s [facility] Work Phone: LV E' Septal Velocity 7 cm/s [facility] Work Phone: LV EDV A2C 186 mL [facility] Work Phone: LV EDV A4C 183 mL [facility] Work Phone: LV EDV BP 190 mL Abnormal 56 - 104 mL [employer] Work Phone: LV EDV Index A2C 111 mL/m2 [employer] Work Phone: LV EDV Index A4C 110 mL/m2 [employer] Work Phone: LV EDV Index BP 114 mL/m2 [employer] Work Phone: LV Ejection Fraction A2C 21 % [employer] Work Phone: LV Ejection Fraction A4C 10 % [facility] Work Phone: LV ESV A2C 147 mL [employer] Work Phone: LV ESV A4C 164 mL [employer] Work Phone: LV ESV BP 157 mL Abnormal 19 - 49 mL [employer] Work Phone: LV ESV Index A2C 88 mL/m2 [employer] Work Phone: LV ESV Index A4C 98 mL/m2 [facility] Work Phone: LV ESV Index BP 94 mL/m2 [facility] Work Phone: LV Mass 2D 218.1 g Abnormal 67 - 162 g [employer] Work Phone: LV Mass 2D Index 130.6 g/m2 Abnormal 43 - 95 g/m2 [facility] Work Phone: LV RWT Ratio 0.31 [facility] Work Phone: LVIDd 5.8 cm Abnormal 3.9 - 5.[address] [facility] Work Phone: LVIDd Index 3.47 cm/m2 [facility] Work Phone: LVIDs 5.[address] [facility] Work Phone: LVIDs Index 3.11 cm/m2 [facility] Work Phone: LVOT Cardiac Output 3.6 liter/minute [facility] Work Phone: LVOT Diameter [address] [facility] Work Phone: LVOT Mean Gradient [address] [facility] Work Phone: LVOT Peak Gradient [address] [facility] Work Phone: LVOT Peak Velocity 0.8 m/s [facility] Work Phone: LVOT Stroke Volume Index 24.6 mL/m2 [facility] Work Phone: LVOT SV 41.[address] [facility] Work Phone: LVOT VTI 13.[address] [facility] Work Phone: LVOT:AV VTI Index 0.46 [facility] Work Phone: LVPWd 0.9 cm 0.6 - 0.[address] [facility] Work Phone: MR VTI 177.[address] [facility] Work Phone: MV A Velocity 1.28 m/s [facility] Work Phone: MV E Velocity 0.85 m/s [facility] Work Phone: MV E Wave Deceleration Time 140.[address] [facility] Work Phone: MV E/A 0.66 [facility] Work Phone: MV Nyquist Velocity 36 cm/s [facility] Work Phone: [phone] MV Regurg Velocity PISA 5.6 m/s [facility] [employer] Phone: [phone] RA Area 4C 59.[address] [facility] Work Phone: [phone] RA Area 4C 59.[address] [facility] Work Phone: [phone] RV Basal Dimension 3.[address] [facility] Work Phone: [phone] RV Free Wall Peak S' 13 cm/s [facility] [employer] Work Phone: [phone] RV Longitudinal Dimension 8.[address] [facility] [employer] Phone: [phone] RV Mid Dimension 2.[address] [facility] [employer] Phone: [phone] [facility] [employer] Phone: [phone] Sinotubular Junction 2.1 cm [facility] [employer] Work Phone: [phone] TAPSE 2.[address] [facility] [employer] Phone: [phone] TR Max Velocity 3.55 m/s [facility] [employer] Phone: [phone] TR Peak Gradient [address] [facility] [employer] Phone: [phone] [facility] [employer] Phone: [phone] Heart Transthoracicon Left Ventricle: [...] on 10-24-2024 Heart rate 89 /min bpm [facility] Work Phone: BASIC METABOLIC PANELon Anion gap [Moles/Vol] 8 mmol/L Normal 3-13 [facility] Comment on above: Performed By: #### L AB15 #### Telegraph Lineman: JAQUELIN RICO ([phone]) [facility] ([facility]) [address] [place] [address] Calcium [Mass/Vol] 7.9 mg/dL Low 8.8-10.0 [facility] Comment on above: Performed By: #### L AB15 #### Telegraph Lineman: JAQUELIN RICO ([phone]) [facility] ([facility]) [address] [place] [address] Chloride [Moles/Vol] 113 mmol/L High 98-107 [facility] Comment on above: Performed By: #### L AB15 #### Telegraph Lineman: JAQUELIN RICO ([phone]) [facility] ([facility]) [address] [place] [address] CO2 [Moles/Vol] 18 mmol/L Low 23-31 [facility] Comment on above: Performed By: #### L AB15 #### Telegraph Lineman: JAQUELIN RICO ([phone]) [facility] ([facility]) [address] [place] [address] Creatinine [Mass/Vol] 1.47 mg/dL High 0.57-1.11 [facility] Comment on above: Performed By: #### L AB15 #### Telegraph Lineman: JAQUELIN [phone]) [facility] ([facility]) [address] [place] [address] [place] GLOMERULAR FILTRATION RATE ML/MIN/1.73 SQ M.PREDICTED 35.7 mL/min/1.73m*2 Low >60.0 [facility] Comment on above: Result Comment: Calc ulation based on the Chronic Kidney Disease Epidemiology Collaboration (CKD-EPI) equation refit without adjustment for race Performed By: #### L AB15 #### Telegraph Lineman: JAQUELIN RICO ([phone]) [facility] ([facility]) [address] [place] [address] Glucose [Mass/Vol] 134 mg/dL High 82-115 [facility] Comment on above: Performed By: #### L AB15 #### Telegraph Lineman: JAQUELIN RICO ([phone]) [facility]) [address] [place] [address] Potassium [Moles/Vol] 4.0 mmol/L Normal 3.5-5.1 [facility] Comment on above: Result Comment: [facility] potassium values may be up to 0.5 mmol/L lower than serum values. Performed By: #### L AB15 #### Telegraph Lineman: JAQUELIN RICO ([phone]) [facility] ([facility]) [address] [place] [address] Sodium [Moles/Vol] 139 mmol/L Normal 136-145 [facility] Comment on above: Performed By: #### L AB15 #### Telegraph Lineman: JAQUELIN RICO ([phone]) [facility]) [address] [place] [address] Urea nitrogen [Mass/Vol] 34 mg/dL High 9-23 [facility] Comment on above: Performed By: #### L AB15 #### Telegraph Lineman: JAQUELIN RICO ([phone]) [facility]) [address] [place] [address] BLOOD TYPE AND SCREEN GELon 10-23-2024 ABO GROUPING O Normal [facility] Comment on above: Performed By: #### L [id number] ####Telegraph Lineman: JAQUELIN [phone])[facility] ([facility])[address] [place] [address] RH TYPE IN BLOOD Positive Normal [facility] Comment on above: Performed By: #### L AB276 ####Telegraph Lineman: JAQUELIN RICO ([phone])[facility] (ACH)[address] [phone] [facility] Basic metabolic 1998 panelon 10-23-2024 Anion gap [Moles/Vol] 8 mmol/L 3 - 13 mmol/L [facility] Calcium [Mass/Vol] 7.9 mg/dL Low 8.8 - 10. 0 mg/dL [facility] Chloride [Moles/Vol] 113 mmol/L High 98 - 10 7 mmol/L [facility] CO2 [Moles/Vol] 18 mmol/L Low 23 - 31 mmol/L [facility] Creatinine [Mass/Vol] 1.47 mg/dL High 0.57 - 1.11 mg/dL [facility] GFR/1.73 sq M.predicted (S/P/Bld) [Vol rate/Area] 35.7 mL/min Low - PINF [facility] Comment on above: Calculation based on the Chronic Kidney Disease Epidemiology Collaboration (CKD-EPI) equation refit without adjustment for race Glucose [Mass/Vol] 134 mg/dL High 82 - 115 mg/dL [facility] Interpretation and review of laboratory results Abnormal [facility] Potassium [Moles/Vol] 4 mmol/L 3.5 - 5.1 mmol/L [facility] Comment on above: Plasma potassium olga lidia ues may be up to 0.5 mmol/L lower than serum values. Sodium [Moles/Vol] 139 mmol/L 136 - 145 mmol/L [facility] Urea nitrogen [Mass/Vol] 34 mg/dL High 9 - 23 mg/dL [facility] Blood type and Crossmatch pa dee dee (Bld)on 10-23-2024 ABO group Nom (Bld) O [facility] Blood group antibody screen GEL Ql Negative [facility] D Ag Ql (RBC) Positive [facility] CBC (HEMOGRAM)on 10-23-2024 Erythrocyte distribution width (RBC) [Ratio] 15.1 % High 11.5-15.0 [facility] Comment on above: Performed By: #### L AB294 ####Telegraph Lineman: JAQUELIN RICO ([phone])[facility] ([facility])[address] [place] [address] Hematocrit (Bld) [Volume fraction] 39.7 % Normal 35.0-47.0 [facility] Comment on above: Performed By: #### L AB294 ####Telegraph Lineman: JAQUELIN RICO ([phone])[facility])[address] [place] [address] Hemoglobin (Bld) [Mass/Vol] 12.4 g/dL Normal 11.7-16.0 [facility] Comment on above: Performed By: #### L AB294 ####Telegraph Lineman: JAQUELIN RICO ([phone])[facility])[address] [place] [address] MCH (RBC) [Entitic mass] 29.7 pg Normal 26.0-34.0 [facility] Comment on above: Performed By: #### L AB294 ####Telegraph Lineman: JAQUELIN RICO ([phone])[facility] ([facility])[address] [place] [address] MCHC 31.2 % Normal 30.5-36.0 [facility] Comment on above: Performed By: #### L AB294 ####Telegraph Lineman: JAQUELIN RICO ([phone])[facility])[address] [place] [address] MCV (RBC) [Entitic vol] 95.0 fL Normal 77.0-99.0 [facility] Comment on above: Performed By: #### L AB294 ####Telegraph Lineman: JAQUELIN RICO ([phone])[facility])[address] [place] [address] Platelet mean volume (Bld) [Entitic vol] 12.6 fL Normal 9.0-12.7 [facility] Comment on above: Performed By: #### L AB294 ####Telegraph Lineman: JAQUELIN RICO ([phone])[facility])[address] [place] [address] [place] Platelets (Bld) [#/Vol] 119 10*3/uL Low 140-440 [facility] Comment on above: Performed By: #### L AB294 ####Telegraph Lineman: JAQUELIN RICO ([phone])[facility])[address] [place] [address] RBC (Bld) [#/Vol] 4.18 10*6/uL Normal 3.80-5.20 [facility] Comment on above: Performed By: #### L AB294 ####Telegraph Lineman: JAQUELIN RICO ([phone])[facility] ([facility])[address] [place] [address] WBC (Bld) [#/Vol] 8.5 10*3/uL Normal 3.6-10.7 [facility] Comment on above: Performed By: #### L AB294 ####Telegraph Lineman: JAQUELIN RICO ([phone])[facility] ([facility])[address] [place] [address] CBC panel Auto (Bld)Ordered By: Janay Wood on 10-23-2024 Erythrocyte distribution width (RBC) [Ratio] 15.1 % High 11.5 - 15.0 % [facility] Hematocrit (Bld) [Volume fraction] 39.7 % 35.0 - 47.0 % [facility] Hemoglobin (Bld) [Mass/Vol] 12.4 g/dL 11.7 - 16.0 g/dL [facility] Interpretation and review of laboratory results Abnormal [facility] MCH (RBC) [Entitic mass] 29.7 pg 26.0 - 34.0 pg [facility] MCHC (RBC) [Mass/Vol] 31.2 % 30.5 - 36.0 % [facility] MCV (RBC) [Entitic vol] 95 fL 77.0 - 99.0 fL [facility] Platelet mean volume (Bld) [Entitic vol] 12.6 fL 9.0 - 12.7 fL [facility] Platelets (Bld) [#/Vol] 119 10*3/uL Low 140 - 440 10*3/uL [facility] RBC (Bld) [#/Vol] 4.18 10*6/uL 3.80 - 5.2 0 10*6/uL [facility] WBC (Bld) [#/Vol] 8.5 10*3/uL 3.6 - 10.7 10*3/uL [facility] Cardiac catheterization stud yon 10-23-2024 [...] Via the right IJ vein, a 6 [place] Islander sheath was placed and temporary pacing wire was placed into the RV apex with appropriate capture, in addition sterile tubing was attached and given the anesthesia for central access. Via radial artery artery, a 6-[place] Islander sheath was placed and the pigtail catheter was placed into the aortic annulus with confirmation the implant angle. Via the right femoral artery, a 6-[place] Islander sheath was placed. The patient was then heparinized. Next, two Perclose devices were used using the pre-close strategy. A Super Stiff wire was then placed through the second Perclose into the descending aorta. Then, a 14-[place] Islander Phong E-sheath was introduced over the wire [...] care of your patient while hospitalized at [facility]. I will continue to follow along while hospitalized. Please do not hesitate to call with any questions. [email or web address] Cardiac catheterization stud yOrdered By: Memo Canas on 10-23-2024 [employer] Phone: ECG 12-LEADon 10-23-2024 ECG 12-LEAD IMPRESSION: Sinus rhythm Left atrial enlargement Nonspecific T wave changes Borderline prolonged QT interval No previous ECG available for comparison Electronically Signed On 10-23-2024 11:58:19 EDT by Antonia Neumann Normal [email or web address] System [facility] No Panel InformationOrdered By: Antonia Neumann on 10-23-2024 P [place] 66 degrees [employer] Phone: IA Interval 153 ms [employer] Phone: QRS [place] 7 degrees [employer] Phone: QRSD Interval 100 ms [employer] Phone: QT Interval 427 ms [employer] Phone: QTC Interval 491 ms [employer] Phone: T Wave [place] 170 degrees [employer] Phone: [employer] Phone: No Panel Informationon 10-23 Sinus rhythm [...] On 10-23-2024 11:58:19 EDT by Antonia Neumann [facility] [email or web address] Interpretation and review of laboratory results Abnormal [email or web address] POCT ACT 320 High [email or web address] Performed by: [facility], [address] [place] [address], [place] [address] CLIA ID: [id number] [email or web address] Blood Expiration Date [id number] [facility] [email or web address] Crossmatch interpretation COMP [email or web address] Dispense Status Crossmatch [email or web address] Product Blood Type 5100 [employer] PRODUCT CODE [id number] [facility] ABO O [facility] Number [id number] [facility] Number [id number] [facility] RH Positive [employer] Unit Volume 300 mL [employer] Op Noteon 10-23-2024 Op Note CARDIOTHORACIC SURGERY--OPERATIVE NOTE Date: 10/23/24 Preoperative diagnosis: Severe symptomatic aortic stenosis Chronic diastolic congestive heart failure Frailty Postoperative diagnosis: Severe symptomatic aortic stenosis Chronic diastolic congestive heart failure Frailty Surgeon: Rocky Self DO Import Export Coordinator: Memo Canas MD Procedure: Transcatheter aortic valve [...] Rocky Self DO FACS Cardiothoracic Surgery Normal [facility] Progress Noteon 10-23-[address] Canas contacted about pre-procedure steroid not ordered. No new orders at this time for 30 case. Normal [facility] Progress Note X-ray to bedside Normal [facility] Progress Note Called for chest X-RAY Normal [facility] US Heart TransthoracicOrdere d By: Marcin Echeverria on 10-23-2024 Aortic valve Mean systole pressure gradient by US.doppler derived full Bernoulli 3 mmHg [facility]: [phone] Ascending Aorta 3.[address] [facility] [employer] Phone: [phone] Ascending Aorta Index 1.84 cm/m2 [facility] [employer] Phone: [phone] AV Area (Pre-TAVR) 0.[address] [facility] [employer] Phone: [phone] AV Area by Peak Velocity 0.[address] [facility] [employer] Phone: [phone] AV Area by VTI 0.6 cm2 [facility] Phone: [phone] AV Mean Gradient (Pre-TAVR) 25 mmHg [facility]: [phone] AV Peak Gradient (Pre-TAVR) 15 mmHg [facility] Phone: [phone] AV Peak Velocity (Pre-TAVR) 2.5 m/s [employer] Phone: [phone] OMID/BSA Peak Velocity 0.4 cm2/m2 [facility] [employer] Phone: OMID/BSA VTI 0.3 cm2/m2 [facility] Phone: [phone] Est. RA Pressure 8 mmHg [facility] Phone: [phone] LVOT Cardiac Output 2.7 liter/minute [facility] [employer] Phone: LVOT Mean Gradient 1 mmHg [facility] Phone: [phone] LVOT Peak Gradient 1 mmHg [facility] Phone: [phone] LVOT Peak Velocity 0.6 m/s [facility] Phone: [phone] LVOT VTI 10 cm [facility] Phone: MR VTI 169.2 cm [facility] Phone: [phone] MV Nyquist Velocity 36 cm/s [facility] Phone: [phone] MV Regurg Velocity PISA 5.3 m/s [facility] Phone: RVSP 50 mmHg [facility] Phone: TR Max Velocity 3.25 m/s [employer] Phone: TR Peak Gradient 42 mmHg [facility] Phone: [employer] Phone: Heart Transthoracicon Left Ventricle: Left ventricle [...] on 10-23-2024 Heart rate 79 /min bpm [email or web address] Work Phone: XR CHEST 1 VIEWon 10-23-2024 [...] Electronically Signed Date/Time: 10/23/2024 10:03 AM EDT [facility] XR Chest Single viewon 10-23 1. Prominence of the cardiac silhouette. 2. Apparent small bilateral pleural effusions. Report Dictated on Electronically Signed By: Arelis Arauz MD Electronically Signed Date/Time: 10/23/2024 10:03 AM EDT [facility] Patient Name: LINDA TEJADA : [...] fracture. VASCULATURE: Calcification of the thoracic aorta. [facility] Arelis Arauz M D - [...] Electronically Signed Date/Time: 10/23/2024 10:03 AM EDT [facility] Radiology Study observation (narrative) [facility] XR Chest Single viewOrdered By: Arelis Arauz on 10-23-2024 [facility] Work Phone: 36on 10-22-2024 36 Letter refaxed to [phone] along chris/ Kishore chart note. Confirmation 10/16/24 at 3:07p Confirmed 10/22/2024 at 3:59p [place] [address] Gregory 's office to follow-up on IV hydrocortisone dosing. Did not receive fax from last week, confirmed number of [phone]. Requested patient will need to have telephone visit at [address] Gregory to review instructions. Requested to have OV note and letter re-faxed to the above number. Will provide valve clinic fax number so Dr. Gregory's office can fax recommendations back [place] [address] Approved per fax. Scanned in under Media. Approval [id number] Sched on all 3 calendars and requested on Snap[employer]. [facility] 36on 10-18-2024 36 Labs scanned under Media [place] [address] Requested lab from [place]. She is faxing them to [address]. [facility] 36on 10-17-2024 36 Pending on Availity using Survela telephone visit from yesterday. Pending# [id number] [facility] 36on 10-16-2024 36 Letter and Kishore valdez note faxed to [phone] and confirmed Normal [facility] [address] Marco A gore Requesting fax regarding medication recommendation sent to [phone]. Will discuss with Jo Levy. Normal [facility] [address] Marco A major Placed on hold and disconnected. Will try again later. Normal [facility] 36 Reviewed plan for bridging with [facility] pharmacist. Patient's CrCl is 31. She advised lovenox 40 mg BID for bridging. -patient will take last dose of Eliquis on 10/19/24 -starting on 10/20/24, patient will start lovenox 40 mg BID -she will take her last dose of lovenox morning of 10/22. -No lovenox the evening of 10/22 or morning of 10/23 [facility] Progress Noteon 10-16-2024 Progress Note [facility] Telehealth Cardiology Note DATE of SERVICE: 10/16/24 TIME of SERVICE: 12:45 PM Chief Complaint: Chief Complaint Patient presents with Follow-up History of Present Illness: Linda Peralta is a 79 y.o. female known to Dr. Marte with a history for CAD, HPL, DVT, PE, Wharton's disease, CKD s/p left nephrectomy (donated) and [...] dyspnea with moderate activity. No CAD per [facility]. Weight 156 lbs. Last clinic visit [...] redirect to the Timeline version of the [employer] Telehealth exam Constitutional: [x]Alert [x]Oriented [...] or 3b CKD (HCC) CKD followed by surgical territory manager Dr. Tarango in [place]. Most recent BMP showed SCr 1.61 with [...] a day for 2 days only. 5. Wharton's disease (HCC) Patient is currently taking hydrocortisone (Cortef) 10 mg TID. Will reach out to extension service supervisor Dr. Gregory in [place] ([phone]). for recommendations on IV hydrocortisone prior to [...] patient de (more content not included)... Normal [facility] 36on 10-15-2024 36 Lab order faxed to [place] lab [phone]/confirmed Normal [facility] 36 I need PB to please finish his chart note so I can submit this auth Normal [facility] Anion gap in Serum or Plasma on 10-15-2024 Anion gap [Moles/Vol] 12 mmol/L 5-15 [facility] BUN/creatinine ratioon 10-15 Urea nitrogen/Creatinine [Mass ratio] 20.3 mg/mg High 10-20 [facility] Basic Metabolic Profile (BMP )on 10-15-2024 BUN/CRE 20.3 RATIO High 10-20 [facility] Comment on above: Performed By: #### L 9200.0000 #### [facility] [address] [place], [address] Calcium [Mass/Vol] 9.5 mg/dL Normal 7.6-11.0 [facility] Comment on above: Performed By: #### L 9200.0000 #### [facility] [address] [place], [address] Chloride [Moles/Vol] 109 mmol/L High 98-108 [facility] Comment on above: Performed By: #### L 9200.0000 #### [facility] [address] [place], [address] CO2 [Moles/Vol] 20.9 mmol/L Low 21.0-32.0 [facility] Comment on above: Performed By: #### L 9200.0000 #### [facility] [address] [place], [address] Creatinine [Mass/Vol] 1.61 mg/dL High 0.70-1.20 [facility] Comment on above: Performed By: #### L 9200.0000 #### [facility] [address] [place], [address] GAP 12 Normal 5-15 [facility] Comment on above: Performed By: #### L 9200.0000 #### [facility] [address] [place], [address] GFR/1.73 sq M.predicted among non-blacks MDRD (S/P/Bld) [Vol rate/Area] 32 mL/min/{1.73_m2} Low >60 [facility] Comment on above: Result Comment: mL/m in/1.73m2 CKD-EPI Creatinine Equation (2020) Performed By: #### L 9200.0000 #### [facility] [address] [place], [address] Glucose [Mass/Vol] 101 mg/dL High 70-99 [facility] Comment on above: Performed By: #### L 9200.0000 #### [facility] [address] [place], [address] Potassium [Moles/Vol] 4.8 mmol/L Normal 3.3-5.1 [facility] Comment on above: Performed By: #### L 9200.0000 #### [facility] [address] [place], [address] Sodium [Moles/Vol] 142 mmol/L Normal 133-145 [facility] Comment on above: Performed By: #### L 9200.0000 #### [facility] [address] [place], [address] Urea nitrogen [Mass/Vol] 33 mg/dL High 4-19 [facility] Comment on above: Performed By: #### L 9200.0000 #### [facility] [address] [place], [address] CBC-Complete Blood Cnt No Di ffon 10-15-2024 Erythrocyte distribution width (RBC) [Ratio] 15.2 % High 11.6-14.6 [facility] Comment on above: Performed By: #### L 9200.0000 #### [facility] [address] [place], [address] Hematocrit (Bld) [Volume fraction] 47.1 % High 37-47 [facility] Comment on above: Performed By: #### L 9200.0000 #### [facility] [address] [place], [address] Hemoglobin (Bld) [Mass/Vol] 14.9 g/dL Normal 12.0-15.0 [facility] Comment on above: Performed By: #### L 9200.0000 #### [facility] [address] [place], [address] MCH (RBC) [Entitic mass] 29.9 pg Normal 27.0-32.0 [facility] Comment on above: Performed By: #### L 9200.0000 #### [facility] [address] [place], [address] MCHC (RBC) [Mass/Vol] 31.6 g/dL Low 32-36 [facility] Comment on above: Performed By: #### L 9200.0000 #### [facility] [address] [place], [address] MCV (RBC) [Entitic vol] 94.4 fL Normal 81-99 [facility] Comment on above: Performed By: #### L 9200.0000 #### [facility] [address] [place], [address] Platelet mean volume (Bld) [Entitic vol] 12.8 fL High 6.2-12.0 [facility] Comment on above: Performed By: #### L 9200.0000 #### [facility] [address] [place], [address] Platelets (Bld) [#/Vol] 179 10*3/uL Normal 150-450 [facility] Comment on above: Performed By: #### L 9200.0000 #### [facility] [address] [place], [address] RBC (Bld) [#/Vol] 4.99 10*6/uL Normal 4.2-5.4 [facility] Comment on above: Performed By: #### L 9200.0000 #### [facility] [address] [place], [address] RDW SD 53.1 fl High 35.1-43.9 [facility] Comment on above: Performed By: #### L 9200.0000 #### [facility] [address] [place], [place], [address] WBC (Bld) [#/Vol] 9.9 10*3/uL Normal 4.4-11.0 [facility] Comment on above: Performed By: #### L 9200.0000 #### [facility] [address] [place], [place], [address] Carbon dioxide, total [Moles /volume] in Central venous bloodon 10-15-2024 CO2 [Moles/Vol] 20.9 mmol/L Low 21.0-32.0 [facility] Chloride assayon 10-15-2024 Chloride [Moles/Vol] 109 mmol/L High 98-108 [facility] Erythrocyte distribution wid th ratioon 10-15-2024 Erythrocyte distribution width (RBC) [Ratio] 15.2 % High 11.6-14.6 [facility] Erythrocyte distribution wid th standard deviationon 10-15-2024 Erythrocyte distribution width (RBC) [Ratio] 53.1 fl High 35.1-43.9 [facility] Glomerular filtration rate ( GFR) estimation/1.73 sq m using serum, plasma, or whole bon 10-15-2024 GFR/1.73 sq M.predicted among non-blacks MDRD (S/P/Bld) [Vol rate/Area] 32 mL/min/{1.73_m2} Low >60 [facility] Comment on above: mL/min/1.73m2 CKD-EP I Creatinine Equation (2020) Hematocrit Auto (Bld) [Volum e fraction]on 10-15-2024 Hematocrit (Bld) [Volume fraction] 47.1 % High 37-47 [facility] Hemoglobin measurementon Hemoglobin (Bld) [Mass/Vol] 14.9 g/dL 12.0-15.0 [facility] MCV (mean corpuscular volume ) determinationon 10-15-2024 MCV (RBC) [Entitic vol] 94.4 fL 81-99 [facility] Mean corpuscular hemoglobin (MCH) determinationon 10-15-2024 MCH (RBC) [Entitic mass] 29.9 pg 27.0-32.0 [facility] Mean corpuscular hemoglobin concentration (MCHC) determinationon 10-15-2024 MCHC (RBC) [Mass/Vol] 31.6 g/dL Low 32-36 [facility] Mean platelet volume determi nationon 10-15-2024 Platelet mean volume (Bld) [Entitic vol] 12.8 fL High 6.2-12.0 [facility] Platelet counton 10-15-2024 Platelets (Bld) [#/Vol] 179 10*3/uL 150-450 [facility] Potassium measurement (mass/ volume)on 10-15-2024 Potassium (Unsp spec) [Mass/Vol] 4.8 mmol/L 3.3-5.1 [facility] RBC Auto (Bld) [#/Vol]on RBC (Bld) [#/Vol] 4.99 10*6/uL 4.2-5.4 [facility] Serum creatinine measurement (mass/volume)on 10-15-2024 Creatinine [Mass/Vol] 1.61 mg/dL High 0.70-1.20 [facility] Serum glucose measurement (m ass/volume)on 10-15-2024 Glucose [Mass/Vol] 101 mg/dL High 70-99 [facility] Serum or plasma calcium scott urement (mass/volume)on 10-15-2024 Calcium [Mass/Vol] 9.5 mg/dL 7.6-11.0 [facility] Serum or plasma urea nitroge n measurement (mass/volume)on 10-15-2024 Urea nitrogen [Mass/Vol] 33 mg/dL High 4-19 [facility] Sodium levelon 10-15-2024 Sodium [Moles/Vol] 142 mmol/L 133-145 [facility] White blood cell (WBC) count on 10-15-2024 WBC (Bld) [#/Vol] 9.9 10*3/uL 4.4-11.0 [facility] 36on 10-14-2024 36 Spoke with patient, she will have labs drawn tomorrow at [place]. Will have office secretary fax lab orders over Normal [facility] 36 Patient is scheduled for TAVR [...] morning. (Will review this with Dr. Canas) [place] [address]on 10-10-2024 36 Results scanned unde r [facility] 36 I called and spoke dana Borrego and she is faxing result [place] [address] Reviewed with Butch carlson APRN as patient completed renal US, plan if BMP shows stable function to proceed with TAVR. BMP results from 10/03/24 at [place] show creatinine 1.82 with GRF 28. Will have WAREHOUSE PACKER review and place TAVR case request if appropriate [address] 10-08-2024 36 I need PB chart note finished from 09/03/24 to do this auth [address] 10-07-2024 36 I called [place] lab and l/m to send me results [facility] Anion gap in Serum or Plasma Ordered By: Basim Joel on 10-03-2024 Anion gap [Moles/Vol] 13 mmol/L 07-04 [facility] BUN/creatinine ratioOrdered By: Basim Joel on 10-03-2024 Urea nitrogen/Creatinine [Mass ratio] 23.9 mg/mg High 12-09 [facility] Basic Metabolic Profile (BMP )on 10-03-2024 BUN/CRE 23.9 RATIO High 12-09 [facility] Comment on above: Performed By: #### L 500.2500 #### [facility] [address] [place], [address] Calcium [Mass/Vol] 10.2 mg/dL Normal 7.6-11.0 [facility] Comment on above: Performed By: #### L 500.2500 #### [facility] [address] [place], [address] Chloride [Moles/Vol] 106 mmol/L Normal 98-108 [facility] Comment on above: Performed By: #### L 500.2500 #### [facility] [address] [place], [address] CO2 [Moles/Vol] 22.6 mmol/L Normal 21.0-32.0 [facility] Comment on above: Performed By: #### L 500.2500 #### [facility] [address] [place], [address] Creatinine [Mass/Vol] 1.82 mg/dL High 0.70-1.20 [facility] Comment on above: Performed By: #### L 500.2500 #### [facility] [address] [place], [address] GAP 13 Normal 5-15 [facility] Comment on above: Performed By: #### L 500.2500 #### [facility] [address] [place], [address] GFR/1.73 sq M.predicted among non-blacks MDRD (S/P/Bld) [Vol rate/Area] 28 mL/min/{1.73_m2} Low >60 [facility] Comment on above: Result Comment: mL/m in/1.73m2 CKD-EPI Creatinine Equation (2020) Performed By: #### L 500.2500 #### [facility] [address] [place], [address] Glucose [Mass/Vol] 77 mg/dL Normal 70-99 [facility] Comment on above: Performed By: #### L 500.2500 #### [facility] [address] [place], [address] Potassium [Moles/Vol] 5.5 mmol/L High 3.3-5.1 [facility] Comment on above: Performed By: #### L 500.2500 #### [facility] [address] [place], [address] Sodium [Moles/Vol] 142 mmol/L Normal 133-145 [facility] Comment on above: Performed By: #### L 500.2500 #### [facility] [address] [place], [address] Urea nitrogen [Mass/Vol] 44 mg/dL High 4-19 [facility] Comment on above: Performed By: #### L 500.2500 #### [facility] [address] [place], [address] Carbon dioxide, total [Moles /volume] in Central venous bloodOrdered By: Basim Joel on 10-03-2024 CO2 [Moles/Vol] 22.6 mmol/L 21.0-32.0 [facility] Chloride assayOrdered By: Nerissa Joel on 10-03-2024 Chloride [Moles/Vol] 106 mmol/L 98-108 [facility] Glomerular filtration rate ( GFR) estimation/1.73 sq m using serum, plasma, or whole bOrdered By: Basim Joel on 10-03-2024 GFR/1.73 sq M.predicted among non-blacks MDRD (S/P/Bld) [Vol rate/Area] 28 mL/min/{1.73_m2} Low >60 [facility] Comment on above: mL/min/1.73m2 CKD-EP I Creatinine Equation (2020) Potassium measurement (mass/ volume)Ordered By: Basim Joel on 10-03-2024 Potassium (Unsp spec) [Mass/Vol] 5.5 mmol/L High 3.3-5.1 [facility] Serum creatinine measurement (mass/volume)Ordered By: Basim Joel on 10-03-2024 Creatinine [Mass/Vol] 1.82 mg/dL High 0.70-1.20 [facility] Serum glucose measurement (m ass/volume)Ordered By: Basim Joel on 10-03-2024 Glucose [Mass/Vol] 77 mg/dL 70-99 [facility] Serum or plasma calcium scott urement (mass/volume)Ordered By: Basim oJel on 10-03-2024 Calcium [Mass/Vol] 10.2 mg/dL 7.6-11.0 [facility] Serum or plasma urea nitroge n measurement (mass/volume)Ordered By: Basim Joel on 10-03-2024 Urea nitrogen [Mass/Vol] 44 mg/dL High 4-19 [facility] Sodium levelOrdered By: David williamsone Wisam on 10-03-2024 Sodium [Moles/Vol] 142 mmol/L 133-145 [facility] 36on 10-02-2024 36 Order faxed to and confirmed Normal [facility] 36 Spoke with patient regarding US kidney. Repeat BMP . Please send lab req [facility]. [facility] Dr. Canas Normal [facility] Cardiac Cath Diagnosticon Cardiac Cath Diagnostic [facility] Services [address] [place] [address] Cardiac Cath Diagnostic MR#: [id number] Acct: [id number] Name: LINDA PERALTA Rep #: [id number] : 1945 79 From: Jordan Marte MD PCP: Dr. Amos Floyd MD Status:DEP [place] Patient Name: LINDA PERALTA Study Date: 08/05/2024 Performing: Jordan Marte MD Ht: 62 inches 157.48 cm : 1945 Wt: 145.99 lbs 66.22 kg Age: 79 Gender: female BSA: 1.67 PROCEDURE(S) PERFORMED DC02-(60182)[facility] CLINICAL PROFILE AND INDICATIONS Indications: Valvular Disease [...] multiple views using a 5 Fr. 4.0 [place] catheter. Right Coronary Artery selective angiography was then performed in multiple views using a 5 Fr. 4.0 [place] catheter.The arterial sheath was pulled and a [...] MD Date Dictated: 08/05/24826 Date Transcribed: 08/05/24855 Entry Level Web Developer: [place] Signed Normal [facility] ECG 12 lead - CLINIC PERFORM EDon 09-29-2024 Sinus Rhythm -occasi onal ectopic ventricular beat -Combined atrial enlargement. -Nonspecific ST depression + Nonspecific T-abnormality -Nondiagnostic. [facility] 36on 09-26-2024 36 BMP review. Bump in BUN/creat after 3 days of 40 mg po Lasix. Spoke with daughter. Weight down to 144 #, swelling, improved, dyspnea improved. Will use Lasix 20 mg po for weight gain greater than 3 lbs overnight or 5lbs in a week. Daughter will relay recommendations. Normal [facility] Basic metabolic 2000 panelon 09-26-2024 Anion gap [Moles/Vol] 16 mmol/L High 8-15 [facility] Comment on above: Order Comment: Speci men Type: BLOOD SPECIMENOrdering Facility: [facility] Address: [address] [place] [address] Performed By: #### 2 4321-2 ####[facility] [id number] [place] [address] [place] Calcium [Mass/Vol] 10.0 mg/dL Normal 8.5-10.2 [facility] Comment on above: Order Comment: Speci men Type: BLOOD SPECIMENOrdering Facility: [facility] Address: [address] [place] [address] Performed By: #### 2 4321-2 ####[facility] HOSPITALJENAROA [id number] [place] [address] [place] Chloride [Moles/Vol] 98 mmol/L Normal 98-107 [facility] Comment on above: Order Comment: Speci men Type: BLOOD SPECIMENOrdering Facility: [facility] Address: [address] [place] [address] Performed By: #### 2 4321-2 ####[facility] HOS[facility]IT[facility] [id number] [place] [address] [place] CO2 [Moles/Vol] 24 mmol/L Normal 22-30 [facility] Comment on above: Order Comment: Speci men Type: BLOOD SPECIMENOrdering Facility: [facility] Address: [address] [place] [address] Performed By: #### 2 4321-2 ####[facility] [id number] [place] [address] [place] Creatinine [Mass/Vol] 2.12 mg/dL High 0.58-0.96 [facility] Comment on above: Order Comment: Speci men Type: BLOOD SPECIMENOrdering Facility: [facility] Address: [address] [place] [address] Performed By: #### 2 4321-2 ####[facility] [id number] [place] [address] [place] eGFRcr SerPlBld CKD-EPI 2020 23 mL/min/1.73m??? Low >=60 [facility] Comment on above: Order Comment: Speci men Type: BLOOD SPECIMENOrdering Facility: [facility] Address: [address] [place] [address] Result Comment: Marisabel mated Glomerular Filtration Rate [...] actual GFR. Performed By: #### 2 4321-2 ####[facility] JACKSONWNCLIA [id number] [place] [address] [place] Glucose [Mass/Vol] 106 mg/dL High 74-99 [facility] Comment on above: Order Comment: Speci men Type: BLOOD SPECIMENOrdering Facility: [facility] Address: [address] [place] [address] Result Comment: The Stateless Diabetes Association (ADA) provides guidance for cutoff [...] Standards of Medical Care in Diabetes 2016, Stateless Diabetes Association. Diabetes Care. 2016.39(Suppl 1). Performed By: #### 2 4321-2 ####[facility] RENESCOTWKEYLALIA [id number] [place] [address] [place] Potassium [Moles/Vol] 4.1 mmol/L Normal 3.7-5.1 [facility] Comment on above: Order Comment: Speci men Type: BLOOD SPECIMENOrdering Facility: [facility] Address: [address] [place] [address] Performed By: #### 2 4321-2 ####[facility] MILLTOWNCLIA [id number] [place] [address] [place] Sodium [Moles/Vol] 138 mmol/L Normal 136-144 [facility] Comment on above: Order Comment: Speci men Type: BLOOD SPECIMENOrdering Facility: [facility] Address: [address] [place] [address] Performed By: #### 2 4321-2 ####[facility]ONKEYLA [id number] [place] [address] [place] Urea nitrogen [Mass/Vol] 48 mg/dL High 7-21 [facility] Comment on above: Order Comment: Speci men Type: BLOOD SPECIMENOrdering Facility: [facility] Address: [address] [place] [address] Performed By: #### 2 4321-2 ####[facility] [id number] [place] [address] [place] US KIDNEY/BLADDERon 09-27-19 [...] Normal sonographic appearance. IMPRESSION: Right renal cysts. Entry Level Web Developer: [email or web address] Transcribe Date/Time: Sep 29 2024 8:00P Dictated by : ANDI COELHO MD This examination was interpreted and the report reviewed and electronically signed by: ANDI COELHO MD on Sep 29 2024 8:01PM EST [id number] Normal [facility] BACTERIAL CULTURE, URINEOrde red By: Nathaniel Henriquez on 09-20-2024 Bacteria identified Cx Nom (U) No growth (<1,000 CFU/ml) [facility] Bacteria identified Cx Nom ( U)Ordered By: Nathaniel Henriquez on 09-20-2024 Interpretation and review of laboratory results Normal [facility] 29on 09-19-2024 29 Addended by: BASIM JOEL on: 09/23/2024 01:57 PM Modules accepted: Orders Normal [facility] BLADDER SCANon 09-19-2024 PVR [address] [facility] Bacteria Ur Culton 5 Bacteria identified Cx Nom (U) CULTURE, URINE: No growth (<1,000 CFU/ml) Normal [facility] Comment on above: Performed By: #### 6 30-4 #### [facility] CLIA [id number] [address] [facility] CNOVon 09-19-2024 CNOV Office Visit (UROLAE ) -------- LINDA PERALTA ([id number]) 1945 F Date Time Provider Department 09/19/24 11:00 AM ARELIS SMITH During your visit today, we recorded the following information about you: Blood pressure Weight Height 124/76 70.3 kg 1.575 m Arelis Smith APRN.SUPPLY PERSON 09/20/2024 1:00 PM Signed [facility] [place] [facility] [place] UROL [place] EXCHANGE NEW PATIENT UROLOGY VISIT 09/19/2024 10:34 AM PATIENT NAME: Linda Peralta DATE OF : 1945 TODAY'S DATE: 09/19/2024 Referring Provider: Rocio Elizalde [address] [facility] [address] Referring Note Reviewed: Yes Chief Complaint: recurrent [...] PAST MEDICAL HISTORY Diagnosis Date 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 (): seen by Dr. Miller, ongoing nausea, vomiting, diarrhea, treated with steroids despit Adrenal insufficiency ([facility]) 06/12/2023 Age-related osteoporosis with current pathological fracture with routine healing 01/19/2023 Anemia 08/26/2009 ASHD (arteriosclerotic heart disease) 04/25/2009 Asthma ([facility]) Benign neoplasm of colon 04/26/2005 Tubular adenoma Chronic diarrhea 03/15/2010 Chronic sphenoidal sinusitis 09/15/2003 Closed displaced fracture of fifth metatarsal bone of right foot 03/22/2023 Closed fracture of bone of right foot 11/08/2022 Collagenous colitis 03/30/2010 Contact dermatitis and other eczema, due to unspecified cause 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 Cardiac cath normal. 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Wharton's disease Cystocele, midline 07/23/2007 Diverticulosis of colon [...] W/COLLJ SPEC WHEN PFRMD 03/26/2010 Inpatient at [facility] ESOPHAGOGASTRODUODENOSCO PY TRANSORAL DIAGNOSTIC 02/2002 EGD ESOPHAGOGASTRODUODENOSCO PY TRANSORAL DIAGNOSTIC 05/01/2009 EGD ESOPHAGOGASTRODUODENOSCO PY TRANSORAL DIAGNOSTIC (more content not included)... Normal [facility] Jayce 09-19-2024 TELLYN Telephone (UROLAE) -------- LINDA PERALTA ([id number]) 1945 F Date Time Provider Department 09/19/24 [...] Encounter Status:Closed by SINDI ANGELES on 09/23/[address] [facility] [address] ANGIOGRAM TAVRon 09-20-19 CT ANGIOGRAM TAVR [...] 09/19/2024 11:00 PM EDT --------ORIGINAL REPORT -------- [facility] Cardiovascular CTA Indication: 79 year-old woman with severe aortic stenosis, being evaluated for transcatheter aortic valve implantation. Technique: Computed tomography of the heart, thoracoabdominal aorta, and iliofemoral system was performed using a [employer] Aquilion One 320 detector scanner. Images were [...] the calcified. Predicted deployment angle (3-cusp view): FRENCH 16, BARREL INSPECTOR 3 Aortic Annulus: Dimensions: 2.56 x 1.98 [...] Exam: Aortic valve replacement (TAVR), pre-op eval [facility] CTA Indication: 79 year-old woman with severe aortic stenosis, being evaluated for transcatheter aortic valve implantation. Technique: Computed tomography of the heart, thoracoabdominal aorta, and iliofemoral system was performed using a [employer] Aquilion One 320 detector scanner. Images were [...] normal in (more content not included)... Normal [facility] CT Chest WO and CT angiogram [...] 09/19/2024 11:00 PM EDT --------ORIGINAL REPORT -------- [facility] Cardiovascular CTA Indication: 79 year-old woman with [...] the calcified. Predicted deployment angle (3-cusp view): FRENCH 16, BARREL INSPECTOR 3 Aortic Annulus: Dimensions: 2.56 x 1.98 [...] Electronically Signed Date/Time: 09/19/2024 4:29 PM EDT [email or web address] Patient Name: LINDA TEJADA : 1945 [id number] Exam Date/Time: 09/19/2024 12:47 Procedure: CT ANGIOGRAM TAVR Ordering Provider: GUPTA MEGGAN Reason For Exam: Aortic valve replacement (TAVR), pre-op eval [facility] Cardiovascular CTA Indication: 79 year-old woman with severe aortic stenosis, being evaluated for transcatheter aortic valve implantation. Technique: Computed tomography of the heart, thoracoabdominal aorta, and iliofemoral system was performed using a [employer] Aquilion One 320 detector scanner. Images were [...] the calcified. Predicted deployment angle (3-cusp view): FRENCH 16, BARREL INSPECTOR 3 Aortic Annulus: Dimensions: 2.56 x 1.98 [...] Electronically Signed Date/Time: 09/19/2024 4:29 PM T [facility] Ben Elias MD / Nixon Jones DO - 09/19/2024 Patient Name: LINDA PERALTA : 1945 [facility]#: [id number] Exam Date/Time: 09/19/2024 12:47 Procedure: CT ANGIOGRAM TAVR Ordering Provider: GUPTA MEGGAN Reason For Exam: Aortic valve replacement (TAVR), pre-op eval [facility] Cardiovascular CTA Indication: 79 year-old woman with severe aortic stenosis, being evaluated for transcatheter aortic valve implantation. Technique: Computed tomography of the heart, thoracoabdominal aorta, and iliofemoral system was performed using a [employer] Aquilion One 320 detector scanner. Images were [...] the calcified. Predicted deployment angle (3-cusp view): FRENCH 16, BARREL INSPECTOR 3 Aortic Annulus: Dimensions: 2.56 x 1.98 [...] Electronically Signed Date/Time: 09/19/2024 4:29 PM EDT [facility] CT angiogram Coronary arteries W contrast IVOrdered By: Ben Elias on 09-19-2024 [email or web address] Work Phone: Office Visiton 09-19-2024 Follow-up visit [id number] Ingris Peralta 1945 F Date Provider Department Center 09/19/2024 [id number] JOEL L [facility] SHM[facility] [address] Ar Family History Problem Relation Age of Onset Heart attack Mother Stroke Father Family Status - Relation Status Age at Mother Father Level of Service:78051 [place] OFFICE/OUTPATIENT ESTABLISHED MOD MDM 30 MIN Reason for Visit and Comments: Cardiac Valve Problem [1334] Normal [facility] MODIZY.COM [facility] Progress Noteon 09-19-2024 Progress Note [facility] gamigo C[facility]IOL [facility] - [place] [address] [place] [address] Dept: [phone] Dept Visit type: Established : 1945 Reason [...] a PMH for CAD, HPL, DVT, PE, Wharton's disease, CKD s/p left nephrectomy (donated) and [...] dyspnea with moderate activity. No CAD per [facility]. Weight 156 lbs. Last clinic visit [...] specialty: Independent interpretation of tests: Basim Joel, WAREHOUSE PACKER - SUPPLY PERSON [1] Allergies Allergen Reactions Amlodipine Swelling Ciprofloxacin [...] Rfl: m (more content not included)... Normal [facility] UA DIP, URINE (POC)on 2024 BILIRUBIN UA (POCT) Negative Negative [facility] CLARITY UA (POCT) [facility] COLOR UA (POCT) Yellow [facility] GLUCOSE UA (POCT) Negative Negative mg/dL [facility] Hemoglobin Ql (U) Negative Negative [facility] Interpretation and review of laboratory results Abnormal [facility] KETONE UA (POCT) Negative Negative mg/dL [facility] LEUKOCYTES UA (POCT) Small Abnormal Negative [facility] NITRITE UA (POCT) Negative Negative [facility] PH UA (POCT) 6 4.5 - 8.0 [facility] Protein Ql (U) Negative Negative mg/dL [facility] SPECIFIC GRAVITY UA (POCT) 1.01 1.005 - 1.030 [facility] UROBILINOGEN UA (POCT) 0.2 Camelia l E.U./dL [facility] Location:[facility] [place] [facility], [address] [place] [address], [id number] [place] [address] [facility] LINDA PERALTA ([id number]) 1945 F Date Time Provider Department 09/12/24 [...] [N39.0] Order(s):CONSULT TO UROLOGY [9041] Order #: [id number]: 1 FUTURE Prescriptions as of 09/19/2024 - [...] Status:Closed by AMA DIAZ on 09/19/24 Normal [facility] Absolute lymphocyte counton 09-10-2024 Lymphocytes Auto (Unsp spec) [#/Vol] 2.14 10*3/uL 0.83-4.51 [facility] Absolute neutrophil counton 09-10-2024 Neutrophils (Bld) [#/Vol] 5.9 10*3/uL 2.0-7.7 [facility] Anion gap in Serum or Plasma on 09-10-2024 Anion gap [Moles/Vol] 13 mmol/L 5- [facility] Automated lymphocyte count a s percentage of total leukocyteson 09-10-2024 Lymphocytes/100 WBC Auto (Unsp spec) 22.3 % - [facility] BUN/creatinine ratioon 09-10 Urea nitrogen/Creatinine [Mass ratio] 19.7 mg/mg - [facility] Basic Metabolic Profile (BMP )on 09-10-2024 BUN/CRE 19.7 RATIO Normal 12-09 [facility] Comment on above: Performed By: #### L 500.2500 #### [facility] [address] [place], [address] Calcium [Mass/Vol] 9.5 mg/dL Normal 7.6-11.0 [facility] Comment on above: Performed By: #### L 500.2500 #### [facility] [address] [place], [address] Chloride [Moles/Vol] 108 mmol/L Normal 98-108 [facility] Comment on above: Performed By: #### L 500.2500 #### [facility] [address] [place], [address] CO2 [Moles/Vol] 21.8 mmol/L Normal 21.0-32.0 [facility] Comment on above: Performed By: #### L 500.2500 #### [facility] [address] [place], [address] Creatinine [Mass/Vol] 1.39 mg/dL High 0.70-1.20 [facility] Comment on above: Performed By: #### L 500.2500 #### [facility] [address] [place], [address] GAP 13 Normal 07-04 [facility] Comment on above: Performed By: #### L 500.2500 #### [facility] [address] [place], [address] GFR/1.73 sq M.predicted among non-blacks MDRD (S/P/Bld) [Vol rate/Area] 38 mL/min/{1.73_m2} Low >60 [facility] Comment on above: Result Comment: mL/m in/1.73m2 CKD-EPI Creatinine Equation (2020) Performed By: #### L 500.2500 #### [facility] [address] [place], [address] Glucose [Mass/Vol] 76 mg/dL Normal 70-99 [facility] Comment on above: Performed By: #### L 500.2500 #### [facility] [address] [place], [address] Potassium [Moles/Vol] 4.6 mmol/L Normal 3.3-5.1 [facility] Comment on above: Result Comment: Hemo lysis present, Results??could be affected. ?? Performed By: #### L 500.2500 #### [facility] [address] [place], [address] Sodium [Moles/Vol] 142 mmol/L Normal 133-145 [facility] Comment on above: Performed By: #### L 500.2500 #### [facility] [address] [place], [address] Urea nitrogen [Mass/Vol] 27 mg/dL High 4-19 [facility] Comment on above: Performed By: #### L 500.2500 #### [facility] [address] [place], [address] Basophil percentageon 09-10- 2024 Basophils/100 WBC (Bld) 0.6 % 0-1 [facility] CBC W/Diff, Automatedon 08-21 Absolute Lymph 2.14 X10 3/uL Normal 0.83-4.51 [facility] Comment on above: Performed By: #### L 500.2500 #### [facility] [address] [place], [address] Absolute Neut 5.9 X10 3/uL Normal 2.0-7.7 [facility] Comment on above: Performed By: #### L 500.2500 #### [facility] [address] [place], [address] Basophils/100 WBC (Bld) 0.6 % Normal 0-1 [facility] Comment on above: Performed By: #### L 500.2500 #### [facility] [address] [place], [address] Eosinophils/100 WBC (Bld) 4.5 % Normal 0-5 [facility] Comment on above: Performed By: #### L 500.2500 #### [facility] [address] [place], [address] Erythrocyte distribution width (RBC) [Ratio] 16.3 % High 11.6-14.6 [facility] Comment on above: Performed By: #### L 500.2500 #### [facility] [address] [place], [address] Hematocrit (Bld) [Volume fraction] 42.7 % Normal 37-47 [facility] Comment on above: Performed By: #### L 500.2500 #### [facility] [address] [place], [address] Hemoglobin (Bld) [Mass/Vol] 13.7 g/dL Normal 12.0-15.0 [facility] Comment on above: Performed By: #### L 500.2500 #### [facility] [address] [place], [address] IG% 1.800 High 0.0-0.9 [facility] Comment on above: Result Comment: IG% - Immature Granulocytes (promyelocytes, myelocytes and metamyelocytes) > 1% indicates that a LEFT SHIFT is Present. Performed By: #### L 500.2500 #### [facility] [address] [place], [address] Lymphocytes/100 WBC (Bld) 22.3 % Normal 19-41 [facility] Comment on above: Performed By: #### L 500.2500 #### [facility] [address] [place], [address] MCH (RBC) [Entitic mass] 30.5 pg Normal 27.0-32.0 [facility] Comment on above: Performed By: #### L 500.2500 #### [facility] [address] [place], [address] MCHC (RBC) [Mass/Vol] 32.1 g/dL Normal 32-36 [facility] Comment on above: Performed By: #### L 500.2500 #### [facility] [address] [place], [address] MCV (RBC) [Entitic vol] 95.1 fL Normal 81-99 [facility] Comment on above: Performed By: #### L 500.2500 #### [facility] [address] [place], [address] Monocytes/100 WBC (Bld) 9.1 % Normal 0-10 [facility] Comment on above: Performed By: #### L 500.2500 #### [facility] [address] [place], [address] Neutrophils/100 WBC (Bld) 61.7 % Normal 47-70 [facility] Comment on above: Performed By: #### L 500.2500 #### [facility] [address] [place], [address] Nucleated RBC (Bld) [#/Vol] 0 10*3/uL Normal 0-5 [facility] Comment on above: Performed By: #### L 500.2500 #### [facility] [address] [place], [address] Platelet mean volume (Bld) [Entitic vol] 11.6 fL Normal 6.2-12.0 [facility] Comment on above: Performed By: #### L 500.2500 #### [facility] [address] [place], [address] Platelets (Bld) [#/Vol] 234 10*3/uL Normal 150-450 [facility] Comment on above: Performed By: #### L 500.2500 #### [facility] [address] [place], [address] RBC (Bld) [#/Vol] 4.49 10*6/uL Normal 4.2-5.4 [facility] Comment on above: Performed By: #### L 500.2500 #### [facility] [address] [place], [address] RDW SD 57.0 fl High 35.1-43.9 [facility] Comment on above: Performed By: #### L 500.2500 #### [facility] [address] [place], [address] WBC (Bld) [#/Vol] 9.6 10*3/uL Normal 4.4-11.0 [facility] Comment on above: Performed By: #### L 500.2500 #### [facility] [address] [place], [address] Carbon dioxide, total [Moles /volume] in Central venous bloodon 09-10-2024 CO2 [Moles/Vol] 21.8 mmol/L 21.0-32.0 [facility] Chloride assayon 09-10-2024 Chloride [Moles/Vol] 108 mmol/L 98-108 [facility] Eosinophil percentageon 08-21 Eosinophils/100 WBC (Bld) 4.5 % 0-5 [facility] Erythrocyte distribution wid th ratioon 09-10-2024 Erythrocyte distribution width (RBC) [Ratio] 16.3 % High 11.6-14.6 [facility] Erythrocyte distribution wid th standard deviationon 09-10-2024 Erythrocyte distribution width (RBC) [Ratio] 57.0 fl High 35.1-43.9 [facility] Glomerular filtration rate ( GFR) estimation/1.73 sq m using serum, plasma, or whole bon 09-10-2024 GFR/1.73 sq M.predicted among non-blacks MDRD (S/P/Bld) [Vol rate/Area] 38 mL/min/{1.73_m2} Low >60 [facility] Comment on above: mL/min/1.73m2 CKD-EP I Creatinine Equation (2020) Hematocrit Auto (Bld) [Volum e fraction]on 09-10-2024 Hematocrit (Bld) [Volume fraction] 42.7 % 37-47 [facility] Hemoglobin measurementon Hemoglobin (Bld) [Mass/Vol] 13.7 g/dL 12.0-15.0 [facility] Immature granulocytes/100 WB C Auto (Bld)on 09-10-2024 Immature granulocytes/100 WBC (Bld) 1.800 % High 0.0-0.9 [facility] Comment on above: IG% - Immature Granu locytes (promyelocytes, myelocytes and metamyelocytes) > 1% indicates that a LEFT SHIFT is Present. MCV (mean corpuscular volume ) determinationon 09-10-2024 MCV (RBC) [Entitic vol] 95.1 fL 81-99 [facility] Mean corpuscular hemoglobin (MCH) determinationon 09-10-2024 MCH (RBC) [Entitic mass] 30.5 pg 27.0-32.0 [facility] Mean corpuscular hemoglobin concentration (MCHC) determinationon 09-10-2024 MCHC (RBC) [Mass/Vol] 32.1 g/dL 32-36 [facility] Mean platelet volume determi nationon 09-10-2024 Platelet mean volume (Bld) [Entitic vol] 11.6 fL 6.2-12.0 [facility] Monocyte percentageon 2024 Monocytes/100 WBC (Bld) 9.1 % 0-10 [facility] Neutrophil percentageon 08-21 Neutrophils/100 WBC (Bld) 61.7 % 47-70 [facility] Nucleated red blood cell per centageon 09-10-2024 Nucleated RBC/100 WBC (Bld) [Ratio] 0 % 0-5 [facility] Platelet counton 09-10-2024 Platelets (Bld) [#/Vol] 234 10*3/uL 150-450 [facility] Potassium measurement (mass/ volume)on 09-10-2024 Potassium (Unsp spec) [Mass/Vol] 4.6 mmol/L 3.3-5.1 [facility] Comment on above: Hemolysis present, R esults could be affected. RBC Auto (Bld) [#/Vol]on RBC (Bld) [#/Vol] 4.49 10*6/uL 4.2-5.4 [facility] Serum creatinine measurement (mass/volume)on 09-10-2024 Creatinine [Mass/Vol] 1.39 mg/dL High 0.70-1.20 [facility] Serum glucose measurement (m ass/volume)on 09-10-2024 Glucose [Mass/Vol] 76 mg/dL 70-99 [facility] Serum or plasma calcium scott urement (mass/volume)on 09-10-2024 Calcium [Mass/Vol] 9.5 mg/dL 7.6-11.0 [facility] Serum or plasma urea nitroge n measurement (mass/volume)on 09-10-2024 Urea nitrogen [Mass/Vol] 27 mg/dL High 4-19 [facility] Sodium levelon 09-10-2024 Sodium [Moles/Vol] 142 mmol/L 133-145 [facility] White blood cell (WBC) count on 09-10-2024 WBC (Bld) [#/Vol] 9.6 10*3/uL 4.4-11.0 [facility] Office Visiton 09-03-2024 Follow-up visit [id number] Ingris Peralta 1945 F Date Provider Department Center 09/03/2024 [id number]-MROLTUXCBALDO DE LA CRUZ [facility] 95 Ar Family History Problem Relation Age of Onset Heart attack Mother Stroke Father Family Status - Relation Status Age at Mother Father Level of Service:67451 [place] OFFICE/OP CONSLTJ NEW/EST PT HIGH MDM 55 MINUTES Reason for Visit and Comments: New Patient [542] Cardiac Valve Problem [1334] - Heart valve clinic [facility] Follow-up visit [id number] Ingris Peralta 1945 F Date Provider Department Center 09/03/2024 93105-QIUBLLFEROLKMEMO CANAS [facility] 95 Ar Family History Problem Relation Age of Onset Heart attack Mother Stroke Father Family Status - Relation Status Age at Mother Father Level of Service:74266 [place] OFFICE/OUTPATIENT ESTABLISHED HIGH [facility] 40 MIN Reason for Visit and Comments: New Patient [542] Cardiac Valve Problem [1334] - Heart valve clinic [facility] Progress Noteon 09-03-2024 Progress Note [facility]: Cardiothoracic Surgery Multidisciplinary Heart Valve Clinic Date: 09/03/24 Patient:Linda Peralta 1945 79 y.o. female [id number] Subjective: HPI: Linda Peralta 79 [address] Marte is being evaluated for aortic valve stenosis. Echocardiogram completed on 07/03/24 showed moderate to severe aortic valve stenosis with mean gradient 39 mm Hg. Per note, patient with past medical history significant for STEMI 2009, HLD, DVT, PE, Wharton's Disease, CKD, s/p left nephrectomy and right partial nephrectomy, mitral valve prolapse, and aortic valve stenosis. Pt underwent TOMI on 07/03/24 which demonstrated LVEF 45%, 1-2+ MT, stage 1 diastolic dysfunction, moderately severe aortic [...] were no vitals taken for this visit. @[id number]@ Physical Exam Constitutional: Appearance: Normal appearance. HENT: [...] neck supple (more content not included)... Normal [employer] [facility] Progress Note [facility] [address] [facility] [address] Dept: [phone] Dept Visit type: New : 1945 Reason [...] proceeding with TAVR. We will contact her extension service supervisor for recommendations about steroid dosing around the [...] LVEFPHYS, LVEF (more content not included)... Normal [facility] Progress Noteon 08-30-2024 Progress Note Hermes Peralta 79 [address] referred by Dr. Marte is being evaluated for aortic valve stenosis. Echocardiogram completed on 07/03/24 showed moderate to severe aortic valve stenosis with mean gradient 39 mm Hg. Per note, patient with past medical history significant for STEMI 2009, HLD, DVT, PE, Wharton's Disease, CKD, s/p left nephrectomy and right partial nephrectomy, mitral valve prolapse, and aortic valve stenosis. Pt underwent TOMI on 07/03/24 which demonstrated LVEF 45%, 1-2+ MT, stage 1 diastolic dysfunction, moderately severe aortic [...] Streptococcus anginosus No susceptibility testing done. Normal [facility] Comment on above: Performed By: #### 6 30-4 ####[facility] [id number] [address] [place] [facility] CNOVon 08-29-2024 CNOV Office Visit (INTMWS ) -------- LINDA PERALTA ([id number]) 1945 F Date Time Provider Department 08/29/24 10:40 AM AMOS FLOYD INTMWS During your visit today, we recorded the following information about you: Pulse Respiration Blood pressure Weight 71/minute 20/minute 135/83 71.4 kg Amos Floyd MD 08/29/2024 11:26 AM Signed This note was created using Metago. Subjective Linda Peralta is a 79 year old female here with daughter. She was doing better. Blood pressure was elevating now. Her extension service supervisor, Dr. Gregory, did not need to call in a medication to raise her blood pressure. Edema was improving. Dysuria resolved. She was scheduled to see cardiac surgeons in [facility] next week for possible TAVR. Review [...] I35.0 - To see cardiac surgery in [facility]. 6. Thyroid nodule greater than or equal to 1 cm in diameter incidentally noted on imaging study, right side. - ICD9: 241.0, ICD10: E04.1 - We reviewed this. Dr. Gregory palpated her thyroid and was aware. He recommended monitori (more content not included)... Normal [facility] UA DIP, URINE (POC)on 2024 BILIRUBIN UA (POCT) Negative Negative [facility] CLARITY UA (POCT) [facility] COLOR UA (POCT) Yellow [facility] GLUCOSE UA (POCT) Negative Negative mg/dL [facility] Hemoglobin Ql (U) Negative [facility] Interpretation and review of laboratory results Abnormal [facility] KETONE UA (POCT) Negative Negative mg/dL [facility] LEUKOCYTES UA (POCT) Small Abnormal Negative [facility] NITRITE UA (POCT) Negative Negative [facility] PH UA (POCT) 6.5 4.5 - 8.0 [facility] Protein Ql (U) 30 mg/dL Abnormal Negative [facility] SPECIFIC GRAVITY UA (POCT) 1.02 1.005 - 1.030 [facility] UROBILINOGEN UA (POCT) 0.2 Camelia l E.U./dL [facility] Location:[facility], [address], [place], [address] [facility] POINT OF CARE [facility] CNPNon 08-19-2024 CNPN Telephone (INTMWS) -------- CORINNA Hermes ([id number]) 1945 F Date Time Provider Department 08/19/24 [...] order another antibiotic? Please advise daughter Souleymane [phone]. Amos Floyd MD 08/19/2024 5:46 PM Signed [...] [Z86.0100] 03/10 (more content not included)... Normal [facility] 36on 08-16-2024 36 Mailed 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 packet and made chart Normal [facility] Bacteria Ur Culton Bacteria identified [...] , Intermediate >32 , Resistant >64 Abnormal [facility] Comment on above: Performed By: #### 6 30-4 ####[facility] [id number] [address] OF [facility] CNOVon 08-14-2024 CNOV Office Visit (INTMWS ) -------- LINDA PERALTA ([id number]) 1945 F Date Time Provider Department 08/14/24 11:20 AM AMOS FLOYD INTMWS During your visit today, we recorded the following information about you: Temperature Pulse Respiration Blood pressure 98.2 degrees 88/minute 18/minute 98/64 Weight 71.2 kg Amos Floyd MD 08/15/2024 7:19 AM Signed This note was created using Clickpassriter. Subjective Patient presents with: Hospital F/U Linda Peralta is a 79 year old female here with her daughter. She had a heart catheterization 08/05/24 showing minimal CAD and severe . She was being referred for TAVR to a specialist in [facility]. She developed weakness 08/07/24 and was found to be bradycardic and hypotensive. She was admitted with concerns for UTI, urosepsis, non STEMI, and Moris's. She was treated with IV fluids, antibiotic for Klebsiella aerogenes UTI, and IV hydrocortisone. She was noted to have edema and found to have acute DVT, in the setting of recent holding of senior living warfarin for the heart cath. She was [...] present. Neurolo (more content not included)... Normal [facility] UA DIP, URINE (POC)on 2024 BILIRUBIN UA (POCT) Negative Negative [facility] CLARITY UA (POCT) [facility] COLOR UA (POCT) Yellow [facility] GLUCOSE UA (POCT) Negative Negative mg/dL [facility] Hemoglobin Ql (U) Negative Negative [facility] Interpretation and review of laboratory results Abnormal [facility] KETONE UA (POCT) Negative Negative mg/dL [facility] LEUKOCYTES UA (POCT) Trace Abnormal [facility] NITRITE UA (POCT) Negative Negative [facility] PH UA (POCT) 6 4.5 - 8.0 [facility] Protein Ql (U) 30 mg/dL Abnormal Negative [facility] SPECIFIC GRAVITY UA (POCT) 1.02 1.005 - 1.030 [facility] UROBILINOGEN UA (POCT) 0.2 Camelia l E.U./dL [facility] Location:[facility], [address] [place] [address], [place], [address] [facility] POINT OF CARE [facility] 36on 08-13-2024 36 Patient sched in 09/03/24 w/ PB/EE. I need to make chart and mail 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 packet. Normal [facility] Culture, Blood (WB)on 2024 CUB Blood cultures x2, f rom two different sites No growth in 5 days. Normal [facility] Comment on above: Performed By: #### M 200.1000 ####[facility] [address] [facility] [facility]. [place], [place], [address] Performed By: #### L 501.4021, M200.1000 ####[facility] [address] [facility] [place], [address] Absolute lymphocyte countOrd ered By: Ted Toro on 08-09-2024 Lymphocytes Auto (Unsp spec) [#/Vol] 0.85 10*3/uL 0.83-4.51 [facility] Absolute neutrophil countOrd ered By: Ted Toro on 08-09-2024 Neutrophils (Bld) [#/Vol] 9.3 10*3/uL High 2.0-7.7 [facility] Anion gap in Serum or Plasma Ordered By: Ted Toro on 08-09-2024 Anion gap [Moles/Vol] 11 mmol/L 5-15 [facility] Automated lymphocyte count a s percentage of total leukocytesOrdered By: Ted Toro on 08-09-2024 Lymphocytes/100 WBC Auto (Unsp spec) 7.4 % Low 19-41 [facility] BUN/creatinine ratioOrdered By: Ted Toro on 08-09-2024 Urea nitrogen/Creatinine [Mass ratio] 30.7 mg/mg High 10-20 [facility] Basic Metabolic Profile (BMP )on 08-09-2024 BUN/CRE 30.7 RATIO High 12-09 [facility] Comment on above: Performed By: #### L 500.2500, L100.0100 #### [facility] [address] [place], [address] Calcium [Mass/Vol] 8.5 mg/dL Normal 7.6-11.0 [facility] Comment on above: Performed By: #### L 500.2500, L100.0100 #### [facility] [address] [place], [address] Chloride [Moles/Vol] 111 mmol/L High 98-108 [facility] Comment on above: Performed By: #### L 500.2500, L100.0100 #### [facility] [address] [place], [address] CO2 [Moles/Vol] 15.0 mmol/L Low 21.0-32.0 [facility] Comment on above: Performed By: #### L 500.2500, L100.0100 #### [facility] [address] [place], [address] Creatinine [Mass/Vol] 1.35 mg/dL High 0.70-1.20 [facility] Comment on above: Performed By: #### L 500.2500, L100.0100 #### [facility] [address] [place], [address] ECRCL 30.53 ml/min Low 50-250 [facility] Comment on above: Performed By: #### L 500.2500, L100.0100 #### [facility] [address] [place], [address] GAP 11 Normal 5-15 [facility] Comment on above: Performed By: #### L 500.2500, L100.0100 #### [facility] [address] [place], [address] GFR/1.73 sq M.predicted among non-blacks MDRD (S/P/Bld) [Vol rate/Area] 39 mL/min/{1.73_m2} Low >60 [facility] Comment on above: Result Comment: mL/m in/1.73m2 CKD-EPI Creatinine Equation (2020) Performed By: #### L 500.2500, L100.0100 #### [facility] [address] [place], [address] Glucose [Mass/Vol] 145 mg/dL High 70-99 [facility] Comment on above: Performed By: #### L 500.2500, L100.0100 #### [facility] [address] [place], [address] Potassium [Moles/Vol] 4.9 mmol/L Normal 3.3-5.1 [facility] Comment on above: Performed By: #### L 500.2500, L100.0100 #### [facility] [address] [place], [address] Sodium [Moles/Vol] 137 mmol/L Normal 133-145 [facility] Comment on above: Performed By: #### L 500.2500, L100.0100 #### [facility] [address] [place], [address] Urea nitrogen [Mass/Vol] 41 mg/dL High 4-19 [facility] Comment on above: Performed By: #### L 500.2500, L100.0100 #### [facility] [address] [place], [address] Basophil percentageOrdered B y: Ted Toro on 08-09-2024 Basophils/100 WBC (Bld) 0.3 % 0-1 [facility] CBC W/Diff, Automatedon - 0-2024 Absolute Lymph 0.85 X10 3/uL Normal 0.83-4.51 [facility] Comment on above: Performed By: #### L 500.2500, L100.0100 #### [facility] [address] [place], [address] Absolute Neut 9.3 X10 3/uL High 2.0-7.7 [facility] Comment on above: Performed By: #### L 500.2500, L100.0100 #### [facility] [address] [place], [address] Basophils/100 WBC (Bld) 0.3 % Normal 0-1 [facility] Comment on above: Performed By: #### L 500.2500, L100.0100 #### [facility] [address] [place], [address] Eosinophils/100 WBC (Bld) 0.2 % Normal 0-5 [facility] Comment on above: Performed By: #### L 500.2500, L100.0100 #### [facility] [address] [place], [address] Erythrocyte distribution width (RBC) [Ratio] 15.9 % High 11.6-14.6 [facility] Comment on above: Performed By: #### L 500.2500, L100.0100 #### [facility] [address] [place], [address] Hematocrit (Bld) [Volume fraction] 40.4 % Normal 37-47 [facility] Comment on above: Performed By: #### L 500.2500, L100.0100 #### [facility] [address] [place], [address] Hemoglobin (Bld) [Mass/Vol] 13.3 g/dL Normal 12.0-15.0 [facility] Comment on above: Performed By: #### L 500.2500, L100.0100 #### [facility] [address] [place], [address] IG% 1.600 High 0.0-0.9 [facility] Comment on above: Result Comment: IG% - Immature Granulocytes (promyelocytes, myelocytes and metamyelocytes) > 1% indicates that a LEFT SHIFT is Present. Performed By: #### L 500.2500, L100.0100 #### [facility] [address] [place], [address] Lymphocytes/100 WBC (Bld) 7.4 % Low 19-41 [facility] Comment on above: Performed By: #### L 500.2500, L100.0100 #### [facility] [address] [place], [address] MCH (RBC) [Entitic mass] 30.1 pg Normal 27.0-32.0 [facility] Comment on above: Performed By: #### L 500.2500, L100.0100 #### [facility] [address] [place], [address] MCHC (RBC) [Mass/Vol] 32.9 g/dL Normal 32-36 [facility] Comment on above: Performed By: #### L 500.2500, L100.0100 #### [facility] [address] [place], [address] MCV (RBC) [Entitic vol] 91.4 fL Normal 81-99 [facility] Comment on above: Performed By: #### L 500.2500, L100.0100 #### [facility] [address] [place], [address] Monocytes/100 WBC (Bld) 9.5 % Normal 0-10 [facility] Comment on above: Performed By: #### L 500.2500, L100.0100 #### [facility] [address] [place], [address] Neutrophils/100 WBC (Bld) 81.0 % High 47-70 [facility] Comment on above: Performed By: #### L 500.2500, L100.0100 #### [facility] [address] [place], [address] Nucleated RBC (Bld) [#/Vol] 0 10*3/uL Normal 0-5 [facility] Comment on above: Performed By: #### L 500.2500, L100.0100 #### [facility] [address] [place], [address] Platelet mean volume (Bld) [Entitic vol] 12.0 fL Normal 6.2-12.0 [facility] Comment on above: Performed By: #### L 500.2500, L100.0100 #### [facility] [address] [place], [address] Platelets (Bld) [#/Vol] 118 10*3/uL Low 150-450 [facility] Comment on above: Performed By: #### L 500.2500, L100.0100 #### [facility] [address] [place], [address] RBC (Bld) [#/Vol] 4.42 10*6/uL Normal 4.2-5.4 [facility] Comment on above: Performed By: #### L 500.2500, L100.0100 #### [facility] [address] [place], [address] RDW SD 53.7 fl High 35.1-43.9 [facility] Comment on above: Performed By: #### L 500.2500, L100.0100 #### [facility] [address] [place], [address] WBC (Bld) [#/Vol] 11.5 10*3/uL High 4.4-11.0 [facility] Comment on above: Performed By: #### L 500.2500, L100.0100 #### [facility] [address] [place], [place], [address] Carbon dioxide, total [Moles /volume] in Central venous bloodOrdered By: Ted Toro on 08-09-2024 CO2 [Moles/Vol] 15.0 mmol/L Low 21.0-32.0 [facility] Chloride assayOrdered By: Deidre Toro on 08-09-2024 Chloride [Moles/Vol] 111 mmol/L High 98-108 [facility] Eosinophil percentageOrdered By: Ted Toro on 08-09-2024 Eosinophils/100 WBC (Bld) 0.2 % 0-5 [facility] Erythrocyte distribution wid th ratioOrdered By: Ted Toro on 08-09-2024 Erythrocyte distribution width (RBC) [Ratio] 15.9 % High 11.6-14.6 [facility] Erythrocyte distribution wid th standard deviationOrdered By: Ted Toro on 08-09-2024 Erythrocyte distribution width (RBC) [Ratio] 53.7 fl High 35.1-43.9 [facility] Glomerular filtration rate ( GFR) estimation/1.73 sq m using serum, plasma, or whole bOrdered By: Ted Toro on 08-09-2024 GFR/1.73 sq M.predicted among non-blacks MDRD (S/P/Bld) [Vol rate/Area] 39 mL/min/{1.73_m2} Low >60 [facility] Comment on above: mL/min/1.73m2 CKD-EP I Creatinine Equation (2020) Hematocrit Auto (Bld) [Volum e fraction]Ordered By: Ted Toro on 08-09-2024 Hematocrit (Bld) [Volume fraction] 40.4 % 37-47 [facility] Hemoglobin measurementOrdere d By: Ted Toro on 08-09-2024 Hemoglobin (Bld) [Mass/Vol] 13.3 g/dL 12.0-15.0 [facility] Immature granulocytes/100 WB C Auto (Bld)Ordered By: Ted Toro on 08-09-2024 Immature granulocytes/100 WBC (Bld) 1.600 % High 0.0-0.9 [facility] Comment on above: IG% - Immature Granu locytes (promyelocytes, myelocytes and metamyelocytes) > 1% indicates that a LEFT SHIFT is Present. MCV (mean corpuscular volume ) determinationOrdered By: Ted Toro on 08-09-2024 MCV (RBC) [Entitic vol] 91.4 fL 81-99 [facility] Mean corpuscular hemoglobin (MCH) determinationOrdered By: Ted Toro on 08-09-2024 MCH (RBC) [Entitic mass] 30.1 pg 27.0-32.0 [facility] Mean corpuscular hemoglobin concentration (MCHC) determinationOrdered By: Ted Toro on 08-09-2024 MCHC (RBC) [Mass/Vol] 32.9 g/dL 32-36 [facility] Mean platelet volume determi nationOrdered By: Ted Toro on 08-09-2024 Platelet mean volume (Bld) [Entitic vol] 12.0 fL 6.2-12.0 [facility] Monocyte percentageOrdered B y: Ted Toro on 08-09-2024 Monocytes/100 WBC (Bld) 9.5 % 0-10 [facility] Neutrophil percentageOrdered By: Ted Toro on 08-09-2024 Neutrophils/100 WBC (Bld) 81.0 % High 47-70 [facility] Nucleated red blood cell per centageOrdered By: Ted Toro on 08-09-2024 Nucleated RBC/100 WBC (Bld) [Ratio] 0 % 0-5 [facility] Platelet countOrdered By: Deidre Toro on 08-09-2024 Platelets (Bld) [#/Vol] 118 10*3/uL Low 150-450 [facility] Potassium measurement (mass/ volume)Ordered By: Ted Toro on 08-09-2024 Potassium (Unsp spec) [Mass/Vol] 4.9 mmol/L 3.3-5.1 [facility] RBC Auto (Bld) [#/Vol]Ordere d By: Ted Toro on 08-09-2024 RBC (Bld) [#/Vol] 4.42 10*6/uL 4.2-5.4 [facility] Serum creatinine measurement (mass/volume)Ordered By: Ted Toro on 08-09-2024 Creatinine [Mass/Vol] 1.35 mg/dL High 0.70-1.20 [facility] Serum glucose measurement (m ass/volume)Ordered By: Ted Toro on 08-09-2024 Glucose [Mass/Vol] 145 mg/dL High 70-99 [facility] Serum or plasma calcium scott urement (mass/volume)Ordered By: Ted Toro on 08-09-2024 Calcium [Mass/Vol] 8.5 mg/dL 7.6-11.0 [facility] Serum or plasma urea nitroge n measurement (mass/volume)Ordered By: Ted Toro on 08-09-2024 Urea nitrogen [Mass/Vol] 41 mg/dL High 4-19 [facility] Sodium levelOrdered By: Buddy Toro on 08-09-2024 Sodium [Moles/Vol] 137 mmol/L 133-145 [facility] Urine Cultureon 08-09-2024 [facility] Klebsiella aerogenes [place] Count >100,000 Klebsiella aerogenes: REACTION Cefepime Islt EMILIA <=0.12 cefTRIAXone Islt EMILIA <=0.25 S Ciprofloxacin Islt EMILIA <=0.06 S Gentamicin Islt EMILIA <=1 S levoFLOXacin Islt EMILIA <=0.12 S Meropenem Islt MEILIA <=0.25 S Nitrofurantoin Islt EMILIA 64 I Pip+Tazo Islt EMILIA 8 S TMP SMX Islt EMILIA <=20 S Normal [facility] Comment on above: Performed By: #### L 400.0001, M100.2200 #### [facility] [address] [place], [address] White blood cell (WBC) count Ordered By: Ted Toro on 08-09-2024 WBC (Bld) [#/Vol] 11.5 10*3/uL High 4.4-11.0 [facility] Venous Duplex US - Spencer Extre [facility] 08-08-2024 Venous Duplex US - Spencer Extrem [facility] Cardiovascular Services [address] [place] [address] Venous Duplex US - Spencer Extrem 08/09/24 0810 MR#: [id number] Acct: [id number] Name: LINDA PERALTA Rep #: [id number] : 1945 79 From: Scotty Barone MD [...] MD Date Dictated: 08/09/24809 Date Transcribed: 08/09/241938 Entry Level Web Developer: Signed Normal [facility] 12 Lead EKGon 08-07-2024 12 Lead EKG [facility] Cardiovascular Services [address] [place] [address] 12 Lead EKG 08/07/24 1554 MR#: [id number] Acct: [id number] Name: LINDA PERALTA Rep #: [id number] : 1945 79 From: Jordan Marte MD Attending Dr: Dr. Jairo Mitchell DO Status: DIS IN Ordering Dr: Obinna Frye MD Date: 08/07/24 Location: [facility] Sex: F C Admitted: 08/07/24 Test Reason [...] ECGs available Confirmed by ESTUARDO ZELAYA, JORDAN ([id number]), medical editor BRANDIN MCCABE ([id number]) on 08/13/2024 2:03:41 PM Referred By: Nixon Silverio Confirmed By: JORDAN MARTE MD 08/13/24 1403 Date Jordan Marte MD CC: Dr. Nixon Silverio DO; Dr. Jairo Mitchell DO; Dr. Obinna Frye MD; Dr. Amos Floyd MD Signed Normal [facility] Abdomen/Pelvis without Conto n 08-07-2024 Abdomen/Pelvis without Cont [facility] Imaging Services [address] [place] [id number] Abdomen/Pelvis without Cont MR#: [id number] Acct: [id number] Name: LINDA PERALTA Rep #: [id number] : 1945 F 79 From: Omar Carrillo MD PCP: Dr. Amos Floyd MD Status: ADM IN Study: Abdomen/Pelvis without Cont Date of Exam: 07/21 10/14 Exam# [id number] Ordering Dr: Nixon Silverio DO PROCEDURE: ABDOMEN/PELVIS [...] consult for management. Colonic diverticulosis. Reading Location: [id number] CC: Dr. Nixon Silverio DO; Dr. Amos Floyd MD Entry Level Web Developer: Signed Normal [facility] Absolute lymphocyte countOrd ered By: Obinna Frye on 08-07-2024 Lymphocytes Auto (Unsp spec) [#/Vol] 2.26 10*3/uL 0.83-4.51 [facility] Absolute neutrophil countOrd ered By: Obinna Frye on 08-07-2024 Neutrophils (Bld) [#/Vol] 10.8 10*3/uL High 2.0-7.7 [facility] Anion gap in Serum or Plasma Ordered By: Obinna Frye on 08-07-2024 Anion gap [Moles/Vol] 15 mmol/L 5-15 [facility] Automated lymphocyte count a s percentage of total leukocytesOrdered By: Obinna Frye on 08-07-2024 Lymphocytes/100 WBC Auto (Unsp spec) 15.0 % Low 19-41 [facility] BUN/creatinine ratioOrdered By: Obinna Frye on 08-07-2024 Urea nitrogen/Creatinine [Mass ratio] 27.3 mg/mg High 10-20 [facility] Basophil percentageOrdered B y: Obinna Frye on 08-07-2024 Basophils/100 WBC (Bld) 0.9 % 0-1 [facility] Bilirubin Test strip Ql (U)O rdered By: Obinna Frye on 08-07-2024 Bilirubin Ql (U) Negative Negative [facility] Bilirubin, totalOrdered By: Obinna Frye on 08-07-2024 Bilirubin [Mass/Vol] 0.52 mg/dL 0.00-1.30 [facility] Blood cultureOrdered By: Obinna Frye on 08-07-2024 Bacteria identified Cx Nom (Bld) No growth in 5 days. [facility] Bacteria identified Cx Nom (Bld) No growth in 5 days. [facility] CBC W/Diff, Automatedon 07-21 Absolute Lymph 2.26 X10 3/uL Normal 0.83-4.51 [facility] Comment on above: Performed By: #### L 500.2500 #### [facility] [address] [place], [address] Absolute Neut 10.8 X10 3/uL High 2.0-7.7 [facility] Comment on above: Performed By: #### L 500.2500 #### [facility] [address], [address] Basophils/100 WBC (Bld) 0.9 % Normal 0-1 [facility] Comment on above: Performed By: #### L 500.2500 #### [facility] [address] [place], [address] Eosinophils/100 WBC (Bld) 1.1 % Normal 0-5 [facility] Comment on above: Performed By: #### L 500.2500 #### [facility] [address] [place], [address] Erythrocyte distribution width (RBC) [Ratio] 15.6 % High 11.6-14.6 [facility] Comment on above: Performed By: #### L 500.2500 #### [facility] [address] [facility] [place], [address] Hematocrit (Bld) [Volume fraction] 46.5 % Normal 37-47 [facility] Comment on above: Performed By: #### L 500.2500 #### [facility] [address] [place], [address] Hemoglobin (Bld) [Mass/Vol] 15.2 g/dL High 12.0-15.0 [facility] Comment on above: Performed By: #### L 500.2500 #### [facility] [address] [place], [address] IG% 1.600 High 0.0-0.9 [facility] Comment on above: Result Comment: IG% - Immature Granulocytes (promyelocytes, myelocytes and metamyelocytes) > 1% indicates that a LEFT SHIFT is Present. Performed By: #### L 500.2500 #### [facility] [place], [address] Lymphocytes/100 WBC (Bld) 15.0 % Low 19-41 [facility] Comment on above: Performed By: #### L 500.2500 #### [facility] [place], [address] MCH (RBC) [Entitic mass] 29.7 pg Normal 27.0-32.0 [facility] Comment on above: Performed By: #### L 500.2500 #### [facility] [address] [place], [address] MCHC (RBC) [Mass/Vol] 32.7 g/dL Normal 32-36 [facility] Comment on above: Performed By: #### L 500.2500 #### [facility] [address] [place], [address] MCV (RBC) [Entitic vol] 91.0 fL Normal 81-99 [facility] Comment on above: Performed By: #### L 500.2500 #### [facility] [address] [place], [address] Monocytes/100 WBC (Bld) 9.7 % Normal 0-10 [facility] Comment on above: Performed By: #### L 500.2500 #### [facility] [address] [place], [address] Neutrophils/100 WBC (Bld) 71.7 % High 47-70 [facility] Comment on above: Performed By: #### L 500.2500 #### [facility] [address] [place], [address] Nucleated RBC (Bld) [#/Vol] 0 10*3/uL Normal 0-5 [facility] Comment on above: Performed By: #### L 500.2500 #### [facility] [address] [place], [address] Platelet mean volume (Bld) [Entitic vol] 11.9 fL Normal 6.2-12.0 [facility] Comment on above: Performed By: #### L 500.2500 #### [facility] [address] [place], [address] Platelets (Bld) [#/Vol] 193 10*3/uL Normal 150-450 [facility] Comment on above: Performed By: #### L 500.2500 #### [facility] [address] [place], [address] RBC (Bld) [#/Vol] 5.11 10*6/uL Normal 4.2-5.4 [facility] Comment on above: Performed By: #### L 500.2500 #### [facility] [address] [place], [address] RDW SD 52.4 fl High 35.1-43.9 [facility] Comment on above: Performed By: #### L 500.2500 #### [facility] [address] [place], [address] WBC (Bld) [#/Vol] 15.1 10*3/uL High 4.4-11.0 [facility] Comment on above: Performed By: #### L 500.2500 #### [facility] [address] [place], [address] Carbon dioxide, total [Moles /volume] in Central venous bloodOrdered By: Obinna Frye on 08-07-2024 CO2 [Moles/Vol] 14.6 mmol/L Low 21.0-32.0 [facility] Chloride assayOrdered By: Ug o Frye on 08-07-2024 Chloride [Moles/Vol] 107 mmol/L 98-108 [facility] Comprehensive Metabolic Prof ilon 08-07-2024 Albumin [Mass/Vol] 4.1 g/dL Normal 3.4-4.8 [facility] Comment on above: Performed By: #### L 500.2500 #### [facility] [address] [place], [address] Albumin/Globulin [Mass ratio] 1.8 {ratio} Normal 0.9-2.4 [facility] Comment on above: Performed By: #### L 500.2500 #### [facility] [address] [place], [address] ALK PHOS 102 U/L Normal 35-104 [facility] Comment on above: Performed By: #### L 500.2500 #### [facility] [address] [place], [address] ALT [Catalytic activity/Vol] 20 U/L Normal <=34 [facility] Comment on above: Performed By: #### L 500.2500 #### [facility] [address] [place], [address] AST [Catalytic activity/Vol] 27 U/L Normal <=31 [facility] Comment on above: Result Comment: Hemo lysis present, Results??could be affected. ?? Performed By: #### L 500.2500 #### [facility] [address] [place], [address] Bilirubin [Mass/Vol] 0.52 mg/dL Normal 0.00-1.30 [facility] Comment on above: Performed By: #### L 500.2500 #### [facility] [address] [place], [address] BUN/CRE 27.3 RATIO High 10-20 [facility] Comment on above: Performed By: #### L 500.2500 #### [facility] [address] [place], [address] Calcium [Mass/Vol] 9.9 mg/dL Normal 7.6-11.0 [facility] Comment on above: Performed By: #### L 500.2500 #### [facility] [address] [place], [address] Chloride [Moles/Vol] 107 mmol/L Normal 98-108 [facility] Comment on above: Performed By: #### L 500.2500 #### [facility] [address] [place], [address] CO2 [Moles/Vol] 14.6 mmol/L Low 21.0-32.0 [facility] Comment on above: Performed By: #### L 500.2500 #### [facility] [address] [place], [address] Creatinine [Mass/Vol] 1.59 mg/dL High 0.70-1.20 [facility] Comment on above: Performed By: #### L 500.2500 #### [facility] [address] [place], [address] ECRCL 25.08 ml/min Low 50-250 [facility] Comment on above: Performed By: #### L 500.2500 #### [facility] [address] [place], [address] GAP 15 Normal 5-15 [facility] Comment on above: Performed By: #### L 500.2500 #### [facility] [address] [place], [address] GFR/1.73 sq M.predicted among non-blacks MDRD (S/P/Bld) [Vol rate/Area] 32 mL/min/{1.73_m2} Low >60 [facility] Comment on above: Result Comment: mL/m in/1.73m2 CKD-EPI Creatinine Equation (2020) Performed By: #### L 500.2500 #### [facility] [address] [place], [address] Globulin (S) [Mass/Vol] 2.2 g/dL Normal 2.2-4.2 [facility] Comment on above: Performed By: #### L 500.2500 #### [facility] [address] [place], [address] Glucose [Mass/Vol] 139 mg/dL High 70-99 [facility] Comment on above: Performed By: #### L 500.2500 #### [facility] [address] [place], [address] Potassium [Moles/Vol] 4.5 mmol/L Normal 3.3-5.1 [facility] Comment on above: Result Comment: Hemo lysis present, Results??could be affected. ?? Performed By: #### L 500.2500 #### [facility] [address] [place], [address] Sodium [Moles/Vol] 137 mmol/L Normal 133-145 [facility] Comment on above: Performed By: #### L 500.2500 #### [facility] [address] [place], [address] T PROT 6.3 g/dL Normal 5.9-8.4 [facility] Comment on above: Performed By: #### L 500.2500 #### [facility] [address] [place], [address] Urea nitrogen [Mass/Vol] 43 mg/dL High 06-08 [facility] Comment on above: Performed By: #### L 500.2500 #### [facility] [address] [place], [address] Emergency Department Summary on 08-07-2024 Emergency Department Summary [facility] Medical Records Department [address] [place] [address] Emergency Department Summary 08/07/24 MR#: [id number] Acct: [id number] Name: LINDA PERALTA Rep #: [id number] : 1945 79 From: Obinna Frye MD [...] Illness/Hospitalization: Yes (Cardiac catheterization earlier this week) [facility] Medical History MVP (mitral valve prolapse) Aortic stenosis Hypokalemia Elevated serum creatinine Acute prerenal azotemia History of kidney cancer Chronic kidney disease Hypercalcemia Frequent falls Closed head injury (03/20/20) Hypoglycemia (03/20/20) Acute electrocardiogram changes Atopic dermatitis Osteopenia determined by x-ray History of pulmonary embolism 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 Normal [facility] Eosinophil percentageOrdered By: Obinnamorales Frye on 08-07-2024 Eosinophils/100 WBC (Bld) 1.1 % 0-5 [facility] Erythrocyte distribution wid th ratioOrdered By: Obinnamorales Frye on 08-07-2024 Erythrocyte distribution width (RBC) [Ratio] 15.6 % High 11.6-14.6 [facility] Erythrocyte distribution wid th standard deviationOrdered By: [facility] Erythrocyte distribution width (RBC) [Ratio] 52.4 fl High 35.1-43.9 [facility] Ferritinon 08-07-2024 Ferritin [Mass/Vol] 107 ng/mL Normal 22-378 [facility] Comment on above: Performed By: #### L 500.2358 #### [facility] [address] [place], [place], [address] Glomerular filtration rate ( GFR) estimation/1.73 sq m using serum, plasma, or whole bOrdered By: Obinna Frye on 08-07-2024 GFR/1.73 sq M.predicted among non-blacks MDRD (S/P/Bld) [Vol rate/Area] 32 mL/min/{1.73_m2} Low >60 [facility] Comment on above: mL/min/1.73m2 CKD-EP I Creatinine Equation (2020) H AND P Exam - [facility] 08-07-2024 H&P Exam - Hospitalist [facility] Medical Records Department [address] [place] [address] H P Exam - Hospitalist 08/07/241930 MR#: [id number] Acct: [id number] Name: LINDA PERALTA Rep #: [id number] : 1945 79 From: Nixon Silverio DO PCP: Dr. Amos Floyd MD Status:ADM IN Location: ICU [id number] HPI - General General Date of Admission: [...] of PE and recurrent DVT's; on warfarin, Wharton's disease with orthostatic hypotension and frequent falls; [...] LVEF 60% and mild luminal irregularities with xitbitni-hf-octfno plus grade II mitral valve insufficiency who presents to [facility] ER complaining of hypotension and bradycardia. [...] 5 days in preparation for her recent [facility] with patient recently just having 1 [...] to extend beyond 2 midnights. [facility] Medical History MVP (mitral valve prolapse) Aortic stenosis Hypokalemia Elevated serum creatinine Acute prerenal azotemia History of kidney cancer Chronic kidney disease Hypercalcemia Frequent falls Closed head injury (03/20/20) Hypoglycemia (03/20/20) Acute electrocardiogram changes Atopic dermatitis Osteopenia determined by x-ray History of pulmonary embolism [facility] (current) use of anticoagulants Orthostatic hypotension Chronic kidney disease, stage 3 Wharton disease Essential (primary) hypertension Hyperlipidemia Recurrent deep [...] denosumab 60 mg/mL subcutaneous 60 mg subcut [id number] #1 mL Unknown Rx syringe (Prolia) hydrocortisone [...] Myocardial infar (more content not included)... Normal [facility] Hematocrit Auto (Bld) [Volum e fraction]Ordered By: Obinna Frye on 08-07-2024 Hematocrit (Bld) [Volume fraction] 46.5 % 37-47 [facility] Hemoglobin measurementOrdere d By: Obinna Frye on 08-07-2024 Hemoglobin (Bld) [Mass/Vol] 15.2 g/dL High 12.0-15.0 [facility] Immature granulocytes/100 WB C Auto (Bld)Ordered By: Obinna Frye on 08-07-2024 Immature granulocytes/100 WBC (Bld) 1.600 % High 0.0-0.9 [facility] Comment on above: IG% - Immature Granu locytes (promyelocytes, myelocytes and metamyelocytes) > 1% indicates that a LEFT SHIFT is Present. International normalized rat io (INR) calculationOrdered By: Nixon Brizuela on 08-07-2024 INR Coag (Bld) [Relative time] 1.1 {INR} [facility] Iron measurement (mass/mass) Ordered By: Nixon Brizueal on 08-07-2024 Iron (Unsp spec) [Mass/Mass] 55 ug/dL 50-170 [facility] Iron+Iron Binding Capacityon 08-07-2024 Iron [Mass/Vol] 55 ug/dL Normal 50-170 [facility] Comment on above: Performed By: #### L 500.2500 #### [facility] [address] [place], [address] IRON SATURATION 19.0 Normal 13-59 [facility] Comment on above: Performed By: #### L 500.2500 #### [facility] [address] [place], [address] TIBC 295 ug/dL Normal 250-450 [facility] Comment on above: Performed By: #### L 500.2500 #### [facility] [address] [place], [address] UIBC 240 ug/dL Normal 228-428 [facility] Comment on above: Result Comment: Hemo lysis present, Results??could be affected. ?? Performed By: #### L 500.2500 #### [facility] [address] [place], [address] Ketones Test strip Ql (U)Ord ered By: Obinna Frye on 08-07-2024 Ketones Ql (U) Negative Negative [facility] L499.0042on 08-07-2024 Trop T High Sen 55 ng/L Invalid Interpretation Code <=14 [facility] Comment on above: Result Comment: Crit ical Result(s) Called at: 1847 by: TOY DE LA TORRE??Results read back by same. Performed By: #### L 499.0042 ####[facility] [address] [place], [address] L499.0043on 08-07-2024 Trop T High Sen 52 ng/L High <=14 [facility] Comment on above: Result Comment: Crit ical Result(s) Called at: 2157 by:??TOY HECKNER Results read back by same. Performed By: #### L 499.0043 #### [facility] [address] [place], [address] L501.4021on 08-07-2024 Trop T High Sen 60 ng/L Invalid Interpretation Code <=14 [facility] Comment on above: Result Comment: Crit ical Result(s) Called at: 1736 by: TOY BUNCH TO JOHN IBARRA??Results read back by same. Performed By: #### L 501.4021, M200.1000 ####[facility] [address] [place], [place], [address] L509.6002on 08-07-2024 CORTISOL 12.00 ug/dL High 2.68-10.50 [facility] Comment on above: Performed By: #### L 500.2500 #### [facility] [address] [place], [place], [address] Laboratory - Chemistry and C hemistry - challengeOrdered By: Obinna Frye on 08-07-2024 AST [Catalytic activity/Vol] 27 U/L <32 [facility] Comment on above: Hemolysis present, R esults could be affected. Lactic Acidon 08-07-2024 Lactate [Moles/Vol] mmol/L Normal 0.0-2.0 [facility] Comment on above: Order Comment: Comme nts: if result >2, system reflex orders 2nd test @ 4hrsY Performed By: #### L 500.2500 #### [facility] [address] [place], [place], [address] Lactic acid measurementOrder ed By: Nixon Brizuela on 08-07-2024 Lactate [Moles/Vol] mmol/L 0.0-2.0 [facility] MCV (mean corpuscular volume ) determinationOrdered By: Obinna Frye on 08-07-2024 MCV (RBC) [Entitic vol] 91.0 fL 81-99 [facility] Mean corpuscular hemoglobin (MCH) determinationOrdered By: Obinna Frye on 08-07-2024 MCH (RBC) [Entitic mass] 29.7 pg 27.0-32.0 [facility] Mean corpuscular hemoglobin concentration (MCHC) determinationOrdered By: Obinna Frye on 08-07-2024 MCHC (RBC) [Mass/Vol] 32.7 g/dL 32-36 [facility] Mean platelet volume determi nationOrdered By: Obinna Frye on 08-07-2024 Platelet mean volume (Bld) [Entitic vol] 11.9 fL 6.2-12.0 [facility] Microscopic analysis of urin e for red blood cells (RBC)Ordered By: Obinna Frye on 08-07-2024 Microscopic analysis of urine for red blood cells (RBC) 0-5 SEEN /hpf 0-5 [facility] Monocyte percentageOrdered B y: Obinna Frye on 08-07-2024 Monocytes/100 WBC (Bld) 9.7 % 0-10 [facility] Mucus LM Ql (Urine sed)Order ed By: Obinna Frye on 08-07-2024 Mucus Ql (Urine sed) 0 SEEN /hpf [facility] Neutrophil percentageOrdered By: Obinna Frye on 08-07-2024 Neutrophils/100 WBC (Bld) 71.7 % High 47-70 [facility] Nitrite Test strip Ql (U)Ord ered By: Obinna Frye on 08-07-2024 Nitrite Ql (U) Positive High Negative [facility] No Panel InformationOrdered By: Nixon Brizuela on 08-07-2024 Unsaturated Iron Binding Capacity 240 ug/dL 228-428 [facility] Comment on above: Hemolysis present, R esults could be affected. Nucleated red blood cell per centageOrdered By: Obinna Frye on 08-07-2024 Nucleated RBC/100 WBC (Bld) [Ratio] 0 % 0-5 [facility] Platelet countOrdered By: Shashank Frye on 08-07-2024 Platelets (Bld) [#/Vol] 193 10*3/uL 150-450 [facility] Potassium measurement (mass/ volume)Ordered By: Obinna Frye on 08-07-2024 Potassium (Unsp spec) [Mass/Vol] 4.5 mmol/L 3.3-5.1 [facility] Comment on above: Hemolysis present, R esults could be affected. Protein Test strip Ql (U)Ord ered By: Obinna Frye on 08-07-2024 Protein Ql (U) 30 mg/dl High Negative [facility] Prothrombin Time w/INRon INR Coag (PPP) [Relative time] 1.1 {INR} Normal [facility] Comment on above: Performed By: #### L 500.2500 #### [facility] [address] [place], [place], [id number] PT Coag (PPP) [Time] 14.9 s Normal 11.7-14.9 [facility] Comment on above: Performed By: #### L 500.2500 #### [facility] [address] [place], [place], [phone] Prothrombin timeOrdered By: Nixon Brizuela on 08-07-2024 PT Coag (PPP) [Time] 14.9 s 11.7-14.9 [facility] RBC Auto (Bld) [#/Vol]Ordere d By: Obinna Frye on 08-07-2024 RBC (Bld) [#/Vol] 5.11 10*6/uL 4.2-5.4 [facility] Serum creatinine measurement (mass/volume)Ordered By: Obinna Frye on 08-07-2024 Creatinine [Mass/Vol] 1.59 mg/dL High 0.70-1.20 [facility] Serum globulin measurementOr dered By: Obinna Frye on 08-07-2024 Globulin (S) [Mass/Vol] 2.2 g/dL 2.2-4.2 [facility] Serum glucose measurement (m ass/volume)Ordered By: Obinna Frye on 08-07-2024 Glucose [Mass/Vol] 139 mg/dL High 70-99 [facility] Serum or plasma alanine evans otransferase (ALT) measurementOrdered By: Obinna Frye on 08-07-2024 ALT [Catalytic activity/Vol] 20 U/L <35 [facility] Serum or plasma albumin scott urement (mass/volume)Ordered By: Obinna Frye on 08-07-2024 Albumin [Mass/Vol] 4.1 g/dL 3.4-4.8 [facility] Serum or plasma albumin/glob ulin mass ratioOrdered By: Obinnamorales Frye on 08-07-2024 Albumin/Globulin [Mass ratio] 1.8 {ratio} 0.9-2.4 [facility] Serum or plasma alkaline bárbara sphatase measurementOrdered By: Obinnamorales Frye on 08-07-2024 ALP [Catalytic activity/Vol] 102 U/L 35-104 [facility] Serum or plasma calcium scott urement (mass/volume)Ordered By: Obinnamorales Frye on 08-07-2024 Calcium [Mass/Vol] 9.9 mg/dL 7.6-11.0 [facility] Serum or plasma cortisol marely surement (mass/volume)Ordered By: Nixon Brizuela on 08-07-2024 Cortisol [Mass/Vol] 12.00 ug/dL High 2.68-10.50 [facility] Serum or plasma ferritin marely surement (mass/volume)Ordered By: Nixon Brizuela on 08-07-2024 Ferritin [Mass/Vol] 107 ng/mL 22-378 [facility] Serum or plasma iron saturat ion measurement (mass fraction)Ordered By: Nixon Brizuela on 08-07-2024 Iron saturation [Mass fraction] 19.0 % 13-59 [facility] Serum or plasma urea nitroge n measurement (mass/volume)Ordered By: Obinna Frye on 08-07-2024 Urea nitrogen [Mass/Vol] 43 mg/dL High 4-19 [facility] Sodium levelOrdered By: Obinna Frye on 08-07-2024 Sodium [Moles/Vol] 137 mmol/L 133-145 [facility] Squamous epithelial cells de tection in urine sediment by light microscopyOrdered By: Obinna Frye on 08-07-2024 Epithelial cells.squamous LM Ql (Urine sed) 0 SEEN /hpf 5-10 [facility] TSH DL <= 0.005 mIU/L QnOrde red By: Nixon Brizuela on 08-07-2024 TSH Qn 1.030 uIU/mL 0.300-4.200 [facility] Thyroid Stim Hormone (TSH)on 08-07-2024 TSH 1.030 uIU/mL Normal 0.300-4.200 [facility] Comment on above: Performed By: #### L 500.2500 #### [facility] [address] [place], [address] Total proteinOrdered By: Obinna Frye on 08-07-2024 Protein [Mass/Vol] 6.3 g/dL 5.9-8.4 [facility] Troponin T.cardiac [Mass/vol ume] in Serum or Plasma by High sensitivity methodOrdered By: Obinna Frye on 08-07-2024 Troponin T.cardiac High sensitivity method [Mass/Vol] 52 ng/L High <14 [facility] Comment on above: Critical Result(s) C alled at: 2158 by: TOY BUNCH TO ABENA JASSO Results read back by same. Troponin T.cardiac High sensitivity method [Mass/Vol] 55 ng/L Critically high <14 [facility] Comment on above: Critical Result(s) C alled at: 1847 by: TOY BUNCH TO NAKIA DE LA TORRE Results read back by same. Troponin T.cardiac High sensitivity method [Mass/Vol] 60 ng/L Critically high <14 [facility] Comment on above: Critical Result(s) C alled at: 1736 by: TOY BUNCH TO JOHN IBARRA Results read back by same. Type AND Screenon 08-07-2024 Ab SCREEN GEL Negative Normal [facility] Comment on above: Order Comment: Has p t arrived? YHGI Performed By: #### B TS ####[facility] [address] [place], [place], [id number] Urinalysis, Completeon 08-07 BACTERIA 3+ /hpf Normal None Seen [facility] Comment on above: Order Comment: CLEAN CATCH Performed By: #### L 400.0001, M100.2200 #### [facility] [address] [place], [place], [id number] RBC 0-5 SEEN Normal 0-5 [facility] Comment on above: Order Comment: CLEAN CATCH Performed By: #### L 400.0001, M100.2200 #### [facility] [address] [place], [address] WBC 5-10 SEEN Normal 0-5 [facility] Comment on above: Order Comment: CLEAN CATCH Performed By: #### L 400.0001, M100.2200 #### [facility] [address] [place], [address] EPI,SQUAMOUS 0 SEEN Normal 5-10 [facility] Comment on above: Order Comment: CLEAN CATCH Performed By: #### L 400.0001, M100.2200 #### [facility] [address] [place], [address] Mucus Ql (Urine sed) 0 SEEN Normal [facility] Comment on above: Order Comment: CLEAN CATCH Performed By: #### L 400.0001, M100.0 #### [facility] [address] [place], [address] Urine clarityOrdered By: Obinna Frye on 08-07-2024 Clarity (U) Clear Clear [facility] Urine color determinationOrd ered By: Obinna Frye on 08-07-2024 Color (U) Yellow Yellow [facility] Urine cultureOrdered By: Obinna Frye on 08-07-2024 Bacteria identified Cx Nom (U) Klebsiella aerogenes Abnormal [facility] Urine glucose detectionOrder ed By: Obinna Frye on 08-07-2024 Glucose Ql (U) Normal mg/dl Normal [facility] Urine leukocyte esterase det ection by dipstickOrdered By: Obinna Frye on 08-07-2024 Leukocyte esterase Test strip Ql (U) 25 /ul High Negative [facility] Urine pHOrdered By: Obinna nielsen on 08-07-2024 pH (U) 6.0 [pH] 5.0 - 8.0 [facility] Urine sediment bacteria coun t by microscopy (number/high power field)Ordered By: Obinna Frye on 08-07-2024 Bacteria LM.HPF (Urine sed) [#/Area] 3 /[HPF] None Seen [facility] Urine specific gravity measu rementOrdered By: Obinnamorales Frye on 08-07-2024 Specific gravity (U) [Rel density] 1.015 1.002-1.030 [facility] Urine urobilinogen measureme ntOrdered By: Obinna Frye on 08-07-2024 Urobilinogen Ql (U) Normal mg/dl Normal [facility] White blood cell (WBC) count Ordered By: Obinna Frye on 08-07-2024 WBC (Bld) [#/Vol] 15.1 10*3/uL High 4.4-11.0 [facility] White blood cell countOrdere d By: Obinna Frye on 08-07-2024 White blood cell count 5-10 SEEN /hpf 0-5 [facility] Anion gap in Serum or Plasma Ordered By: Jordan Estuardo on 08-05-2024 Anion gap [Moles/Vol] 12 mmol/L 5-15 [facility] BUN/creatinine ratioOrdered By: Kearney Estuardo on 08-05-2024 Urea nitrogen/Creatinine [Mass ratio] 23.7 mg/mg High 10-20 [facility] Basic Metabolic Profile (BMP )on 08-05-2024 BUN/CRE 23.7 RATIO High 10-20 [facility] Comment on above: Performed By: #### L 500.2500, L100.0100 #### [facility] [address] [place], [address] Calcium [Mass/Vol] 9.8 mg/dL Normal 7.6-11.0 [facility] Comment on above: Performed By: #### L 500.2500, L100.0100 #### [facility] [address] [place], [address] Chloride [Moles/Vol] 111 mmol/L High 98-108 [facility] Comment on above: Performed By: #### L 500.2500, L100.0100 #### [facility] [address] [place], [address] CO2 [Moles/Vol] 17.0 mmol/L Low 21.0-32.0 [facility] Comment on above: Performed By: #### L 500.2500, L100.0100 #### [facility] [address] [place], [address] Creatinine [Mass/Vol] 1.55 mg/dL High 0.70-1.20 [facility] Comment on above: Performed By: #### L 500.2500, L100.0100 #### [facility] [address] [place], [address] ECRCL 25.41 ml/min Low 50-250 [facility] Comment on above: Performed By: #### L 500.2500, L100.0100 #### [facility] [address] [place], [address] GAP 12 Normal 5-15 [facility] Comment on above: Performed By: #### L 500.2500, L100.0100 #### [facility] [address] [place], [address] GFR/1.73 sq M.predicted among non-blacks MDRD (S/P/Bld) [Vol rate/Area] 33 mL/min/{1.73_m2} Low >60 [facility] Comment on above: Result Comment: mL/m in/1.73m2 CKD-EPI Creatinine Equation (2020) Performed By: #### L 500.2500, L100.0100 #### [facility] [address] [place], [address] Glucose [Mass/Vol] 96 mg/dL Normal 70-99 [facility] Comment on above: Performed By: #### L 500.2500, L100.0100 #### [facility] [address] [place], [address] Potassium [Moles/Vol] 4.5 mmol/L Normal 3.3-5.1 [facility] Comment on above: Result Comment: Hemo lysis present, Results??could be affected. ?? Performed By: #### L 500.2500, L100.0100 #### [facility] [address] [place], [address] Sodium [Moles/Vol] 140 mmol/L Normal 133-145 [facility] Comment on above: Performed By: #### L 500.2500, L100.0100 #### [facility] [address] [place], [address] Urea nitrogen [Mass/Vol] 37 mg/dL High 4-19 [facility] Comment on above: Performed By: #### L 500.2500, L100.0100 #### [facility] [address] [place], [address] Carbon dioxide, total [Moles /volume] in Central venous bloodOrdered By: Jordan Marte on 08-05-2024 CO2 [Moles/Vol] 17.0 mmol/L Low 21.0-32.0 [facility] Chloride assayOrdered By: Jorge L Marte on 08-05-2024 Chloride [Moles/Vol] 111 mmol/L High 98-108 [facility] Glomerular filtration rate ( GFR) estimation/1.73 sq m using serum, plasma, or whole bOrdered By: Jordan Marte on 08-05-2024 GFR/1.73 sq M.predicted among non-blacks MDRD (S/P/Bld) [Vol rate/Area] 33 mL/min/{1.73_m2} Low >60 [facility] Comment on above: mL/min/1.73m2 CKD-EP I Creatinine Equation (2020) International normalized rat io (INR) calculationOrdered By: Jordan Marte on 08-05-2024 INR Coag (Bld) [Relative time] 1.0 {INR} [facility] Potassium measurement (mass/ volume)Ordered By: Jordan Marte on 08-05-2024 Potassium (Unsp spec) [Mass/Vol] 4.5 mmol/L 3.3-5.1 [facility] Comment on above: Hemolysis present, R esults could be affected. Prothrombin Time w/INRon INR Coag (PPP) [Relative time] 1.0 {INR} Normal [facility] Comment on above: Performed By: #### L 500.2500, L100.0100 #### [facility] [address] [place], [address] PT Coag (PPP) [Time] 13.1 s Normal 11.7-14.9 [facility] Comment on above: Performed By: #### L 500.2500, L100.0100 #### [facility] [address] [place], [address] Prothrombin timeOrdered By: Jordan Marte on 08-05-2024 PT Coag (PPP) [Time] 13.1 s 11.7-14.9 [facility] Serum creatinine measurement (mass/volume)Ordered By: Jordan Marte on 08-05-2024 Creatinine [Mass/Vol] 1.55 mg/dL High 0.70-1.20 [facility] Serum glucose measurement (m ass/volume)Ordered By: Jordan Marte on 08-05-2024 Glucose [Mass/Vol] 96 mg/dL 70-99 [facility] Serum or plasma calcium scott urement (mass/volume)Ordered By: Jordan Marte on 08-05-2024 Calcium [Mass/Vol] 9.8 mg/dL 7.6-11.0 [facility] Serum or plasma urea nitroge n measurement (mass/volume)Ordered By: Jordan Marte on 08-05-2024 Urea nitrogen [Mass/Vol] 37 mg/dL High 4-19 [facility] Sodium levelOrdered By: Jarocho Marte on 08-05-2024 Sodium [Moles/Vol] 140 mmol/L 133-145 [facility] CNOVon 07-24-2024 CNOV Office Visit (INTMWS ) -------- LINDA PERALTA ([id number]) 1945 F Date Time Provider Department 07/24/24 11:00 AM AMOS FLOYD INTMWS During your visit today, we recorded the following information about you: Pulse Respiration Blood pressure Weight 80/minute 20/minute 126/82 65.8 kg Amos Floyd MD 07/24/2024 12:45 PM Signed This note was created using Metago. Subjective Linda Peralta is a 79 year old female. Recording using [employer] software for draft documentation of the visit was discussed with the patient/authorized sales and merchandising representative; all questions welcomed and answered. Patient/authorized sales and merchandising representative agreed to proceed Heart Murmur: - [...] - Evelia (more content not included)... Normal [facility] Absolute lymphocyte countOrd ered By: Jordan Marte on 07-23-2024 Lymphocytes Auto (Unsp spec) [#/Vol] 1.15 10*3/uL 0.83-4.51 [facility] Absolute neutrophil countOrd ered By: Jordan Marte on 07-23-2024 Neutrophils (Bld) [#/Vol] 8.1 10*3/uL High 2.0-7.7 [facility] Activated partial thrombopla stin time (aPTT) in platelet poor plasma by coagulation aOrdered By: Jordan Marte on 07-23-2024 aPTT Coag (PPP) [Time] 33.9 s 24.1-36.2 [facility] Automated lymphocyte count a s percentage of total leukocytesOrdered By: Jordan Marte on 07-23-2024 Lymphocytes/100 WBC Auto (Unsp spec) 11.0 % Low 19-41 [facility] Basic Metabolic Profile (BMP )on 07-23-2024 BUN/CRE 28.1 RATIO High 10-20 [facility] Comment on above: Order Comment: Do al chris with PT/INR in 1 week Performed By: #### L 9200.0000 #### [facility] [address] [place], [place], [id number] Calcium [Mass/Vol] 10.4 mg/dL Normal 7.6-11.0 [facility] Comment on above: Order Comment: Do al chris with PT/INR in 1 week Performed By: #### L 9200.0000 #### [facility] [address] [place], [address] Chloride [Moles/Vol] 108 mmol/L Normal 98-108 [facility] Comment on above: Order Comment: Do al chris with PT/INR in 1 week Performed By: #### L 9200.0000 #### [facility] [address] [place], [address] CO2 [Moles/Vol] 21.6 mmol/L Normal 21.0-32.0 [facility] Comment on above: Order Comment: Do al chris with PT/INR in 1 week Performed By: #### L 9200.0000 #### [facility] [address] [place], [address] Creatinine [Mass/Vol] 1.60 mg/dL High 0.70-1.20 [facility] Comment on above: Order Comment: Do al chris with PT/INR in 1 week Performed By: #### L 9200.0000 #### [facility] [address] [place], [address] GAP 12 Normal 5-15 [facility] Comment on above: Order Comment: Do al chris with PT/INR in 1 week Performed By: #### L 9200.0000 #### [facility] [address] [place], [address] GFR/1.73 sq M.predicted among non-blacks MDRD (S/P/Bld) [Vol rate/Area] 32 mL/min/{1.73_m2} Low >60 [facility] Comment on above: Order Comment: Do al chris with PT/INR in 1 week Result Comment: mL/m in/1.73m2 CKD-EPI Creatinine Equation (2020) Performed By: #### L 9200.0000 #### [facility] [address] [place], [address] Glucose [Mass/Vol] 93 mg/dL Normal 70-99 [facility] Comment on above: Order Comment: Do al chris with PT/INR in 1 week Performed By: #### L 9200.0000 #### [facility] [address] [place], [address] Potassium [Moles/Vol] 5.1 mmol/L Normal 3.3-5.1 [facility] Comment on above: Order Comment: Do al chris with PT/INR in 1 week Result Comment: Hemo lysis present, Results??could be affected. ?? Performed By: #### L 9200.0000 #### [facility] [address] [place], [address] Sodium [Moles/Vol] 142 mmol/L Normal 133-145 [facility] Comment on above: Order Comment: Do al chris with PT/INR in 1 week Performed By: #### L 9200.0000 #### [facility] [address] [place], [address] Urea nitrogen [Mass/Vol] 45 mg/dL High 4-19 [facility] Comment on above: Order Comment: Do al chris with PT/INR in 1 week Performed By: #### L 9200.0000 #### [facility] [address] [place], [address] Basophil percentageOrdered B y: Kearney Estuardo on 07-23-2024 Basophils/100 WBC (Bld) 0.4 % 0-1 [facility] CBC W/Diff, Automatedon Absolute Lymph 1.15 X10 3/uL Normal 0.83-4.51 [facility] Comment on above: Performed By: #### L 100.0100, L300.3900, L500.2500, L300.4310 ####[facility] [address] [place], [address] Absolute Neut 8.1 X10 3/uL High 2.0-7.7 [facility] Comment on above: Performed By: #### L 100.0100, L300.3900, L500.2500, L300.4310 ####[facility] [address] [place], [address] Basophils/100 WBC (Bld) 0.4 % Normal 0-1 [facility] Comment on above: Performed By: #### L 100.0100, L300.3900, L500.2500, L300.4310 ####[facility] [address] [place], [address] Eosinophils/100 WBC (Bld) 0.9 % Normal 0-5 [facility] Comment on above: Performed By: #### L 100.0100, L300.3900, L500.2500, L300.4310 ####[facility] [address] [place], [address] Erythrocyte distribution width (RBC) [Ratio] 15.7 % High 11.6-14.6 [facility] Comment on above: Performed By: #### L 100.0100, L300.3900, L500.2500, L300.4310 ####[facility] [address] [place], [address] Hematocrit (Bld) [Volume fraction] 50.1 % High 37-47 [facility] Comment on above: Performed By: #### L 100.0100, L300.3900, L500.2500, L300.4310 ####[facility] [address] [place], [address] Hemoglobin (Bld) [Mass/Vol] 16.3 g/dL High 12.0-15.0 [facility] Comment on above: Performed By: #### L 100.0100, L300.3900, L500.2500, L300.4310 ####[facility] [address] [place], [address] IG% 0.900 Normal 0.0-0.9 [facility] Comment on above: Result Comment: IG% - Immature Granulocytes (promyelocytes, myelocytes and metamyelocytes) > 1% indicates that a LEFT SHIFT is Present. Performed By: #### L 100.0100, L300.3900, L500.2500, L300.4310 ####[facility] [address] [place], [address] Lymphocytes/100 WBC (Bld) 11.0 % Low 19-41 [facility] Comment on above: Performed By: #### L 100.0100, L300.3900, L500.2500, L300.4310 ####[facility] [address] [place], [address] MCH (RBC) [Entitic mass] 29.9 pg Normal 27.0-32.0 [facility] Comment on above: Performed By: #### L 100.0100, L300.3900, L500.2500, L300.4310 ####[facility] [address] [place], [address] MCHC (RBC) [Mass/Vol] 32.5 g/dL Normal 32-36 [facility] Comment on above: Performed By: #### L 100.0100, L300.3900, L500.2500, L300.4310 ####[facility] [address] [place], [address] MCV (RBC) [Entitic vol] 91.9 fL Normal 81-99 [facility] Comment on above: Performed By: #### L 100.0100, L300.3900, L500.2500, L300.4310 ####[facility] [address] [place], [address] Monocytes/100 WBC (Bld) 9.0 % Normal 0-10 [facility] Comment on above: Performed By: #### L 100.0100, L300.3900, L500.2500, L300.4310 ####[facility] [address] [place], [address] Neutrophils/100 WBC (Bld) 77.8 % High 47-70 [facility] Comment on above: Performed By: #### L 100.0100, L300.3900, L500.2500, L300.4310 ####[facility] [address] [place], [address] Nucleated RBC (Bld) [#/Vol] 0 10*3/uL Normal 0-5 [facility] Comment on above: Performed By: #### L 100.0100, L300.3900, L500.2500, L300.4310 ####[facility] [address] [place], [address] Platelet mean volume (Bld) [Entitic vol] 11.8 fL Normal 6.2-12.0 [facility] Comment on above: Performed By: #### L 100.0100, L300.3900, L500.2500, L300.4310 ####[facility] [address] [place], [address] Platelets (Bld) [#/Vol] 222 10*3/uL Normal 150-450 [facility] Comment on above: Performed By: #### L 100.0100, L300.3900, L500.2500, L300.4310 ####[facility] [address] [place], [address] RBC (Bld) [#/Vol] 5.45 10*6/uL High 4.2-5.4 [facility] Comment on above: Performed By: #### L 100.0100, L300.3900, L500.2500, L300.4310 ####[facility] [address] [place], [address] RDW SD 52.5 fl High 35.1-43.9 [facility] Comment on above: Performed By: #### L 100.0100, L300.3900, L500.2500, L300.4310 ####[facility] [address] [place], [address] WBC (Bld) [#/Vol] 10.5 10*3/uL Normal 4.4-11.0 [facility] Comment on above: Performed By: #### L 100.0100, L300.3900, L500.2500, L300.4310 ####[facility] [address] [place], [address] Cardiology Visit Reporton Cardiology Visit Report [facility] [address] [place], [place] [address] OFFICE VISIT Date of Service: 07/23/24 MR#: [id number] Acct: [id number] Name: LINDA PERALTA Rep #: [id number] : 1945 Provider: PEDRO samuel Age/Sex: 79/F Location: [facility] Status: Signed HPI HPI History [...] with mod-severe aortic stenosis. 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 [...] 100 Intake Visit Reasons: UPDATE H P Hand Paster Required: No Is patient in pain?: No Allergies ciprofloxacin (From Cipro) Allergy (Verified 07/23/24 08:14) Rash Penicillins Allergy (Verified 07/23/24 08:14) Rash Medications ???Medication ???Instructions ???Recorded ???Confirmed ???Type acetaminophen 500 mg tablet 1,000 mg (2 x 500 mg) PO Q6H PRN 0 04/08/20 07/23/24 Rx Pain Score 1-10 denosumab 60 mg/mL subcutaneous 60 mg subcut [id number] #1 mL 07/23/24 Rx syringe (Prolia) hydrocortisone [...] Note: heart cath august 05 [facility] Medical History (Reviewed 07/23/24 @ 12:37 by Heaven Bolton [employer]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, E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) MVP (mitral valve prolapse) Aortic stenosis Hypokalemia Elevated serum creatinine Acute prerenal azotemia History of kidney cancer Chronic kidney disease Hypercalcemia Frequent falls Closed head injury (03/20/20) Hypoglycemia (03/20/20) Acute electrocardiogram changes Atopic dermatitis Osteopenia determined by x-ray History of pulmonary embolism [facility] (current) use of anticoagulants Orthostatic hypotension Chronic [...] Other History of DVT (deep vein thrombosis) 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 Normal [facility] Chest PA and Lateralon 07-23 Chest PA and Lateral [facility] Imaging Services [address] [place] [address] Chest PA and Lateral MR#: [id number] Acct: [id number] Name: LINDA PERALTA Rep #: [id number] : 1945 F 79 From: Yony Gaitan PCP: Dr. 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 Mild cardiomegaly. Reading Location: [id number] CC: E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 Heaven Bolton; Dr. Amos Floyd MD Entry Level Web Developer: Signed Normal [facility] Eosinophil percentageOrdered By: Jordan Marte on 07-23-2024 Eosinophils/100 WBC (Bld) 0.9 % 0-5 [facility] Erythrocyte distribution wid th ratioOrdered By: Jordna Marte on 07-23-2024 Erythrocyte distribution width (RBC) [Ratio] 15.7 % High 11.6-14.6 [facility] Erythrocyte distribution wid th standard deviationOrdered By: Jordan Marte on 07-23-2024 Erythrocyte distribution width (RBC) [Ratio] 52.5 fl High 35.1-43.9 [facility] Hematocrit Auto (Bld) [Volum e fraction]Ordered By: Jordan Marte on 07-23-2024 Hematocrit (Bld) [Volume fraction] 50.1 % High 37-47 [facility] Hemoglobin measurementOrdere d By: Jordan Marte on 07-23-2024 Hemoglobin (Bld) [Mass/Vol] 16.3 g/dL High 12.0-15.0 [facility] Immature granulocytes/100 WB C Auto (Bld)Ordered By: Jordan Marte on 07-23-2024 Immature granulocytes/100 WBC (Bld) 0.900 % 0.0-0.9 [facility] Comment on above: IG% - Immature Granu locytes (promyelocytes, myelocytes and metamyelocytes) > 1% indicates that a LEFT SHIFT is Present. MCV (mean corpuscular volume ) determinationOrdered By: Kearney Estuardo on 07-23-2024 MCV (RBC) [Entitic vol] 91.9 fL 81-99 [facility] Mean corpuscular hemoglobin (MCH) determinationOrdered By: Kearney Estuardo on 07-23-2024 MCH (RBC) [Entitic mass] 29.9 pg 27.0-32.0 [facility] Mean corpuscular hemoglobin concentration (MCHC) determinationOrdered By: Jordan Estuardo on 07-23-2024 MCHC (RBC) [Mass/Vol] 32.5 g/dL 32-36 [facility] Mean platelet volume determi nationOrdered By: Kearney Estuardo on 07-23-2024 Platelet mean volume (Bld) [Entitic vol] 11.8 fL 6.2-12.0 [facility] Monocyte percentageOrdered B y: Jordan Estuardo on 07-23-2024 Monocytes/100 WBC (Bld) 9.0 % 0-10 [facility] Neutrophil percentageOrdered By: Jordan Estuardo on 07-23-2024 Neutrophils/100 WBC (Bld) 77.8 % High 47-70 [facility] Nucleated red blood cell per centageOrdered By: Jordan Estuardo on 07-23-2024 Nucleated RBC/100 WBC (Bld) [Ratio] 0 % 0-5 [facility] Partial Thromboplast Timeon 07-23-2024 aPTT Coag (Bld) [Time] 33.9 s Normal 24.1-36.2 [facility] Comment on above: Performed By: #### L 9200.0000 #### [facility] [address] [place] [address], [id number] Platelet countOrdered By: Cy ril Estuardo on 07-23-2024 Platelets (Bld) [#/Vol] 222 10*3/uL 150-450 [facility] Prothrombin Time w/INRon INR Coag (PPP) [Relative time] 2.4 {INR} Normal [facility] Comment on above: Performed By: #### L 100.0100, L300.3900, L500.2500, L300.4310 ####[facility] [address] [place], [address] PT Coag (PPP) [Time] 26.4 s High 11.7-14.9 [facility] Comment on above: Performed By: #### L 100.0100, L300.3900, L500.2500, L300.4310 ####[facility] [address] [place], [address] RBC Auto (Bld) [#/Vol]Ordere d By: Jordan Marte on 07-23-2024 RBC (Bld) [#/Vol] 5.45 10*6/uL High 4.2-5.4 [facility] White blood cell (WBC) count Ordered By: Jordan Marte on 07-23-2024 WBC (Bld) [#/Vol] 10.5 10*3/uL 4.4-11.0 [facility] CNNURSEon 07-10-2024 [facility] Nurse Visit (FAMPWS) -------- LINDA PERALTA ([id number]) 1945 F Date Time Provider Department 07/10/24 9:15 AM MT NURSE FAMPWS During your visit today, we [...] disease) [I25.10] 04/25/2009 DVT (deep venous thrombosis) ([facility]) [I82.409] 03/23/2012 01/23/2024 Osteopenia on [...] Status:Closed by DESIRAE ARZOLA on 07/10/24 Normal [facility] 1,25-dihydroxyvitamin D3 [Ma ss/Vol]on 07-05-2024 VIT D1,25 DIHYDROXY 41.2 pg/mL Normal 19.9-79.3 [facility] Comment on above: Order Comment: Speci men Type: BLOOD SPECIMENOrdering Facility: [facility] Address: [address] [place] [address] Performed By: #### 1 989-3, 164-3 ####[facility] [id number] [place] [address] [place] 25(OH)D3 [facility] [address] 2024 25-hydroxyvitamin D3 [Mass/Vol] 37.5 ng/mL Normal 31.0-80.0 [facility] Comment on above: Order Comment: Speci men Type: BLOOD SPECIMENOrdering Facility: [facility] Address: [address] [place] [address] Performed By: #### 1 989-3, 1643 ####[facility] [id number] [place] [address] [place] Calcium.ionized [Moles/Vol]o n 07-05-2024 Calcium.ionized (Bld) [Mass/Vol] 1.34 mmol/L High 1.08-1.30 [facility] Comment on above: Order Comment: Speci men Type: BLOOD SPECIMENOrdering Facility: [facility] Address: [address] [place] [address] Performed By: #### 1 995-0 ####[facility] [id number] [address] [address] [place] Calcium.ionized adjusted to pH 7.4 (Bld) [Moles/Vol] 1.33 mmol/L High 1.08-1.30 [facility] Comment on above: Order Comment: Speci men Type: BLOOD SPECIMENOrdering Facility: [facility] Address: [address] [place] [address] Performed By: #### 1 995-0 ####[facility] [id number] [address] [address] [place] Comprehensive metabolic 2000 panelon 07-05-2024 Albumin [Mass/Vol] 4.0 g/dL Normal 3.9-4.9 [facility] Comment on above: Order Comment: Speci men Type: BLOOD SPECIMENOrdering Facility: [facility] Address: [address] [place] [address] Performed By: #### 2 731-8, 3016-3, 95395-3, 3024-7 ####[facility] [id number] [address] [address] [place] ALP [Catalytic activity/Vol] 91 U/L Normal 34-123 [facility] Comment on above: Order Comment: Speci men Type: BLOOD SPECIMENOrdering Facility: [facility] Address: [address] [place] [address] Performed By: #### 2 731-8, 3016-3, 86183-1, 3024-7 ####[facility] [id number] [address] [address] [place] ALT [Catalytic activity/Vol] 26 U/L Normal 7-38 [facility] Comment on above: Order Comment: Speci men Type: BLOOD SPECIMENOrdering Facility: [facility] Address: [address] [place] [address] Performed By: #### 2 731-8, 3016-3, 36344-5, 3024-7 ####[facility] LABCLIA [id number] [address] [address] [place] Anion gap [Moles/Vol] 15 mmol/L Normal 8-15 [facility] Comment on above: Order Comment: Speci men Type: BLOOD SPECIMENOrdering Facility: [facility] Address: [address] [place] [address] Performed By: #### 2 731-8, 3016-3, 88659-4, 3024-7 ####[facility] LABCL[facility] [id number] [address] [address] [place] AST [Catalytic activity/Vol] 24 U/L Normal 13-35 [facility] Comment on above: Order Comment: Speci men Type: BLOOD SPECIMENOrdering Facility: [facility] Address: [address] [place] [address] Performed By: #### 2 731-8, 3016-3, 59210-2, 3024-7 ####[facility]CL[facility] [id number] [address] [address] [place] Bilirubin [Mass/Vol] 0.6 mg/dL Normal 0.2-1.3 [facility] Comment on above: Order Comment: Speci men Type: BLOOD SPECIMENOrdering Facility: [facility] Address: [address] [place] [address] Performed By: #### 2 731-8, 3016-3, 46235-4, 3024-7 ####[facility] LABCL[facility] [id number] [address] [address] [place] Calcium [Mass/Vol] 10.2 mg/dL Normal 8.5-10.2 [facility] Comment on above: Order Comment: Speci men Type: BLOOD SPECIMENOrdering Facility: [facility] Address: [address] [place] [address] Performed By: #### 2 731-8, 3016-3, 02300-2, 3024-7 ####[facility] [id number] [address] [address] [place] Chloride [Moles/Vol] 104 mmol/L Normal 98-107 [facility] Comment on above: Order Comment: Speci men Type: BLOOD SPECIMENOrdering Facility: [facility] Address: [address] [place], [place] [address] Performed By: #### 2 731-8, 3016-3, 36680-8, 3024-7 ####[facility] [id number] [place] [address] [place] CO2 [Moles/Vol] 22 mmol/L Normal 22-30 [facility] Comment on above: Order Comment: Speci men Type: BLOOD SPECIMENOrdering Facility: [facility] Address: [address] [place] [address] Performed By: #### 2 731-8, 3016-3, 70561-6, 3024-7 ####[facility] [id number] [address] [address] [place] Creatinine [Mass/Vol] 1.34 mg/dL High 0.58-0.96 [facility] Comment on above: Order Comment: Speci men Type: BLOOD SPECIMENOrdering Facility: [facility] Address: [address] [place], [place] [address] Performed By: #### 2 731-8, 3016-3, 93769-2, 3024-7 ####[facility] [id number] [address] [address] [place] Creatinine and Glomerular filtration rate.predicted panel (S/P/Bld) 40 mL/min/1.73m??? Low >=60 [facility] Comment on above: Order Comment: Speci men Type: BLOOD SPECIMENOrdering Facility: [facility] Address: [address] [place] [address] Result Comment: Marisabel mated Glomerular Filtration Rate [...] GFR. Performed By: #### 2 731-8, 3016-3, 28712-6, 3023-7 ####[facility] [id number] [address] [address] [place] Glucose [Mass/Vol] 87 mg/dL Normal 74-99 [facility] Comment on above: Order Comment: Jody fairbanks Type: BLOOD SPECIMENOrdering Facility: [facility] Address: [address] [place] [address] Result Comment: The Stateless Diabetes Association (ADA) provides guidance for cutoff [...] Standards of Medical Care in Diabetes 2016, Stateless Diabetes Association. Diabetes Care. 2016.39(Suppl 1). Performed By: #### 2 731-8, 3016-3, 01576-4, 7 ####[facility] [id number] [address] [address] [place] Potassium [Moles/Vol] 5.1 mmol/L Normal 3.7-5.1 [facility] Comment on above: Order Comment: Jody fairbanks Type: BLOOD SPECIMENOrdering Facility: [facility] Address: [address] [place] [address] Performed By: #### 2 731-8, 3016-3, 01165-2, 3023-7 ####[facility] [id number] [address] [address] [place] Protein [Mass/Vol] 6.0 g/dL Low 6.3-8.0 [facility] Comment on above: Order Comment: Speci men Type: BLOOD SPECIMENOrdering Facility: [facility] Address: [address] [place] [address] Performed By: #### 2 731-8, 3016-3, 45250-6, 3024-7 ####[facility] [id number] [address] [address] [place] Sodium [Moles/Vol] 141 mmol/L Normal 136-144 [facility] Comment on above: Order Comment: Speci men Type: BLOOD SPECIMENOrdering Facility: [facility] Address: [address] [place] [address] Performed By: #### 2 731-8, 3016-3, 52352-4, 3024-7 ####[facility] [id number] [address] [address] [place] Urea nitrogen [Mass/Vol] 42 mg/dL High 7-21 [facility] Comment on above: Order Comment: Speci men Type: BLOOD SPECIMENOrdering Facility: [facility] Address: [address] [place] [address] Performed By: #### 2 731-8, 3016-3, 73768-9, 3024-7 ####[facility] [id number] [address] [address] [place] GALAC PHOS URIDYL Omar 07-05 G[facility] PHOS URIDYL TR 26.2 U/g Hb Normal >=19.4 [facility] Comment on above: Order Comment: Speci men Type: BLOOD SPECIMENOrdering Facility: [facility] Address: [address] [place] [address] Result Comment: Norm al isdhbfwsw-4-wvadczwtg uridyltransferase activity. Results reviewed and interpreted by Fatmata Craven MD, PhD, FACMG INTERPRETIVE INFORMATION: Sdhvl-6-Asru Uridyltransferase One U/g Hb is equivalent to one umol/hour/gram of hemoglobin (umol/hr/g Hb). Genotype Iadax-3-Lroc Uridyltransferase activity(umol/hr/g Hb) Classic galactosemia(G/G) ..... Less than or equal to 0.7 [place]va galactosemia(D/G) ............. 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 6.5-16.2 [place] homozygous(D/D) ............... 6.4-16.5 [place] carrier(D/N) .................. 12.0-24.0 Normal(N/N) .................. Greater than or equal to 19.4 This test was developed and its performance characteristics determined by [facility]. It has not been cleared or approved by the US Food and Drug Administration. This test was performed in a CLIA certified laboratory and is intended for clinical purposes. Counseling and informed consent are recommended for genetic testing. Consent forms are available online. Performed By: [facility] [address] [place] [address] Claim Administrator: Jefferson Kerr MD, PhD CLIA Number: [id number] Performed By: #### G 1PHOS ####[facility]ORATORIESIA [id number] [place] [address] PTH-Intact [facility] 05- Parathyrin.intact [Mass/Vol] 52 pg/mL Normal 15-65 [facility] Comment on above: Order Comment: Speci men Type: BLOOD SPECIMENOrdering Facility: [facility] Address: [address] [place] [address] Performed By: #### 2 731-8, 3016-3, 52564-8, 3024-7 ####[facility] LABCL[facility] [id number] [place] [id number] [place] T4 Free SerPl-mCncon 025 Free T4 [Mass/Vol] 1.4 ng/dL Normal 0.9-1.7 [facility] Comment on above: Order Comment: Speci men Type: BLOOD SPECIMENOrdering Facility: [facility] Address: [address] [place] [address] Performed By: #### 2 731-8, 3016-3, 12502-4, 3024-7 ####[facility] [id number] [place] [address] [place] TSH SerPl-aCncon 07-05-2024 TSH Qn 0.460 m[IU]/L Normal 0.270-4.200 [facility] Comment on above: Order Comment: Speci men Type: BLOOD SPECIMENOrdering Facility: [facility] Address: [address] [place] [address] Performed By: #### 2 731-8, 3016-3, 76536-3, 3024-7 ####[facility] [id number] [place] [address] [place] Echo Transesophageal (TOMI)on 07-03-2024 Echo Transesophageal (TOMI) [facility] Cardiovascular Services [address] [place] [address] Echo Transesophageal (TOMI) 07/03/24 1154 MR#: [id number] Acct: [id number] Name: LINDA PERALTA Rep #: [id number] : 1945 79 From: Jordan Marte MD Attending Dr: NIGHAT Burns Status: REG CL I Ordering Dr: Tucker Reyes Date: 07/03/24 Location: [facility] Sex: F C Admitted: Reason For Study : AORTIC STENOSIS Medication TOMI probe 6VT-D (SN [id number]) passed with minimal difficulty. No complications were noted. Cetacaine Topical Davis given X3 orally. Left Ventricle Normal LV [...] Dictated: 07/03/24 1154 Date Transcribed: 07/03/24 1505 Entry Level Web Developer: Signed Normal [facility] Transesophageal echocardiogr am reportOrdered By: Jordan Marte on 07-03-2024 Study report [facility] Cardiovascular Services [address] [place] [address] Echo Transesophageal (TOMI) 07/03/24 1154 MR#: [id number] Acct: [id number] Name: LINDA PERALTA Rep #:[id number] : 1945 79 From: Jordan Gaitan Attending Dr: NIGHAT Burns atus: REG CLI Ordering Dr: Tucker Reyes Date: 07/03/24 Location: [facility] Sex: F C Admitted: Reason For Study : AORTIC STENOSIS Medication TOMI probe 6VT-D (SN [id number]) passed with minimal difficulty. No complications were noted. Cetacaine Topical Davis given X3 orally. Left Ventricle Normal LV [...] Aortic Valve Planimetry: 0.52 cm2 ECHO/Echo Transesophageal (OTMI) Interpretation Summary Normal LV size. Left ventricular [...] Dictated: 07/03/24 1154 Date Transcribed: 07/03/24 1505 Entry Level Web Developer: Signed [facility] Work Phone: International normalized rat io (INR) measurement by fingerstickOrdered By: Basim Velasquez on 06-21-2024 INR Coag (BldC) [Relative time] 2.0 [facility] Comment on above: Critical Value > 4.0 Protime w/INR Fingerstickon 06-21-2024 INR Coag (PPP) [Relative time] 2.0 {INR} Normal [facility] Comment on above: Result Comment: Crit ical Value > 4.0 Performed By: #### L 9200.0000 #### [facility] [address] [facility] [place], [address] Protime Coagsen 22.3 SEC High 11.7-14.9 [facility] Comment on above: Performed By: #### L 9200.0000 #### [facility] [address] [place], [address] Whole blood prothrombin time Ordered By: Basim Velasquez on 06-21-2024 PT Coag (Bld) [Time] 22.3 s High 11.7-14.9 [facility] Echo Completeon 05-24-2024 Echo Complete [facility] Cardiovascular Services [address] [facility] [place] [address] Echo Complete 05/24/24 1348 MR#: [id number] Acct: [id number] Name: LINDA PERALTA Rep #: [id number] : 1945 79 From: Jordan Marte MD Attending Dr: NIGHAT Burns Status: REG CL I Ordering Dr: Tucker Reyes Date: 05/24/24 Location: [facility] Sex: F C Admitted: Reason For Study [...] Date _ (more content not included)... Normal [facility] Echocardiogram study reportO rdered By: Jordan Marte on 05-24-2024 Study report [facility] Cardiovascular Services [address] [place] [address] Echo Complete 05/24/24 1348 MR#: [id number] Acct: [id number] Name: LINDA PERALTA Rep #:[id number] : 1945 79 From: Jordan Gaitan Attending Dr: NIGHAT Burns atus: REG CLI Ordering Dr: Tucker Reyes Date: 05/24/24 Location: [facility] Sex: F C Admitted: Reason For Study [...] Dictated: 05/24/24 1348 Date Transcribed: 05/24/24 1604 Entry Level Web Developer: Signed [facility] Work Phone: INR Coag (BldC) [Relative ti me]Ordered By: Basim Velasquez on 05-24-2024 INR Coag (Bld) [Relative time] 2.7 {INR} [facility] Comment on above: Critical Value > 4.0 International normalized rat io (INR) measurement by fingerstickOrdered By: Basim Velasquez on 05-24-2024 INR Coag (BldC) [Relative time] 2.7 [facility] Comment on above: Critical Value > 4.0 PT Coag (Bld) [Time]Ordered By: Basim Velasquez on 05-24-2024 Bedside Prothrombin Time 28.1 SEC High 11.7-14.9 [facility] Protime w/INR Fingerstickon 05-24-2024 INR Coag (PPP) [Relative time] 2.7 {INR} Normal [facility] Comment on above: Result Comment: Crit ical Value > 4.0 Performed By: #### L 500.2500, L100.0100 #### [facility] [address] [place], [place], [id number] Protime Coagsen 28.1 SEC High 11.7-14.9 [facility] Comment on above: Performed By: #### L 500.2500, L100.0100 #### [facility] [address] [place], [place], [id number] Whole blood prothrombin time Ordered By: Basim Velasquez on 05-24-2024 PT Coag (Bld) [Time] 28.1 s High 11.7-14.9 [facility] Protime w/INR Fingerstickon 04-30-2024 INR Coag (PPP) [Relative time] 2.5 {INR} Normal [facility] Comment on above: Result Comment: Crit ical Value > 4.0 Performed By: #### L 500.2500, L100.0100 #### [facility] [address] [place], [address] Protime Coagsen 26.5 SEC High 11.7-14.9 [facility] Comment on above: Performed By: #### L 500.2500, L100.0100 #### [facility] [address] [place], [address] Cardiology Visit Reporton Cardiology Visit Report [facility] [address] [place], [place] [address] OFFICE VISIT Date of Service: 04/29/24 MR#: [id number] Acct: [id number] Name: LINDA PERALTA Rep #: [id number] : 1945 Provider: NIGHAT Burns Age/Sex: 79/F Location: [facility] Status: Signed HPI HPI History [...] with mod-severe aortic stenosis. 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 [...] 94 Intake Visit Reasons: 1 Y FU Hand Paster Required: No Is patient in pain?: No [...] denosumab 60 mg/mL subcutaneous 60 mg subcut [id number] #1 mL 04/29/24 Rx syringe (Prolia) hydrocortisone [...] Nurse's Note: left foot fractured. [facility] Medical History MVP (mitral valve prolapse) Aortic stenosis Hypokalemia Elevated serum creatinine Acute prerenal azotemia History of kidney cancer Chronic kidney disease Hypercalcemia Frequent falls Closed head injury (03/20/20) Hypoglycemia (03/20/20) Acute electrocardiogram changes Atopic dermatitis Osteopenia determined by x-ray History of pulmonary embolism [facility] (current) use of anticoagulants Orthostatic hypotension Chronic [...] Other History of DVT (deep vein thrombosis) [facility] (current) use of anticoagulants Social History ... Normal [facility] INR Coag (BldC) [Relative ti me]Ordered By: Basim Velasquez on 04-26-2024 INR Coag (Bld) [Relative time] 2.5 {INR} [facility] Comment on above: Critical Value > 4.0 International normalized rat io (INR) measurement by fingerstickOrdered By: Basim Velasquez on 04-26-2024 INR Coag (BldC) [Relative time] 2.5 [facility] Comment on above: Critical Value > 4.0 PT Coag (Bld) [Time]Ordered By: Basim Velasquez on 04-26-2024 Bedside Prothrombin Time 26.5 SEC High 11.7-14.9 [facility] Whole blood prothrombin time Ordered By: Basim Velasquez on 04-26-2024 PT Coag (Bld) [Time] 26.5 s High 11.7-14.9 [facility] Blood urea nitrogen (BUN)/cr eatinine ratioOrdered By: Jennifer Tarango on 04-03-2024 Urea nitrogen/Creatinine [Mass ratio] 21.8 mg/mg High 10-20 [facility] Carbon dioxide measurementOr dered By: Jennifer Tarango on 04-03-2024 CO2 [Moles/Vol] 26.0 mmol/L 21.0-32.0 [facility] Chloride measurementOrdered By: Jennifer Tarango on 04-03-2024 Chloride [Moles/Vol] 107 mmol/L 98-107 [facility] Estimated glomerular filtrat ion rate (GFR) AmericanOrdered By: Jennifer Tarango on 04-03-2024 Estimated GFR (MDRD) Amer 46 mL/min Low >60 [facility] Comment on above: GFR Calc Glomerular filtration rate ( GFR) estimationOrdered By: Jennifer Tarango on 04-03-2024 Estimated GFR (MDRD) Non-Af Amer 38 mL/min Low >60 [facility] Comment on above: Non- GFR Calc GFR/1.73 sq M.predicted among non-blacks MDRD (S/P/Bld) [Vol rate/Area] 38 mL/min/{1.73_m2} Low >60 [facility] Comment on above: Non- GFR Calc Glucose measurementOrdered B y: Jennifer Tarango on 04-03-2024 Glucose [Mass/Vol] 152 mg/dL High 74-106 [facility] Comment on above: Fasting Glucose resu lt greater than or equal to 126 mg/dL suggests DIABETES MELLITUS per A.D.A. criteria. Phosphorus measurementOrdere d By: Jennifer Tarango on 04-03-2024 Phosphorus Level 2.3 mg/dL Low 2.5-4.9 [facility] Potassium measurementOrdered By: Jennifer Tarango on 04-03-2024 Potassium [Moles/Vol] 4.2 mmol/L 3.5-5.1 [facility] Renal Profileon 04-03-2024 Albumin [Mass/Vol] 3.4 g/dL Normal 3.2-5.0 [facility] Comment on above: Performed By: #### L 9200.0000 #### [facility] [address] [place], [address] BUN/CRE 21.8 RATIO High 10-20 [facility] Comment on above: Performed By: #### L 9200.0000 #### [facility] [address] [place], [address] CA,Total 9.3 mg/dL Normal 8.5-10.1 [facility] Comment on above: Performed By: #### L 9200.0000 #### [facility] [address] [place], [address] Chloride [Moles/Vol] 107 mmol/L Normal 98-107 [facility] Comment on above: Performed By: #### L 9200.0000 #### [facility] [address] [place], [address] CO2 [Moles/Vol] 26.0 mmol/L Normal 21.0-32.0 [facility] Comment on above: Performed By: #### L 9200.0000 #### [facility] [address] [place], [address] Creatinine [Mass/Vol] 1.42 mg/dL High 0.55-1.02 [facility] Comment on above: Result Comment: The validity of the calculated GFR GFRAA in patients over 70 years has not been determined. Clinical correlation is essential. Performed By: #### L 9200.0000 #### [facility] [address] [place], [address] EST GFR - AA 46 mL/min Low >60 [facility] Comment on above: Result Comment: Afri can Stateless GFR Calc Performed By: #### L 9200.0000 #### [facility] [address] [place], [address] GFR/1.73 sq M.predicted among non-blacks MDRD (S/P/Bld) [Vol rate/Area] 38 mL/min/{1.73_m2} Low >60 [facility] Comment on above: Result Comment: Non- GFR Calc Performed By: #### L 9200.0000 #### [facility] [address] [place], [address] Glucose [Mass/Vol] 152 mg/dL High 74-106 [facility] Comment on above: Result Comment: Fast ing Glucose result greater than or equal to 126 mg/dL suggests DIABETES MELLITUS per A.D.A. criteria. Performed By: #### L 9200.0000 #### [facility] [address] [place], [address] Phosphate [Mass/Vol] 2.3 mg/dL Low 2.5-4.9 [facility] Comment on above: Performed By: #### L 9200.0000 #### [facility] [address] [place], [address] Potassium [Moles/Vol] 4.2 mmol/L Normal 3.5-5.1 [facility] Comment on above: Performed By: #### L 9200.0000 #### [facility] [address] [place], [address] Sodium [Moles/Vol] 140 mmol/L Normal 136-145 [facility] Comment on above: Performed By: #### L 9200.0000 #### [facility] [address] [place], [address] Urea nitrogen [Mass/Vol] 31 mg/dL High 7-18 [facility] Comment on above: Performed By: #### L 9200.0000 #### [facility] [address] [place], [address] Serum or plasma albumin scott urement (mass/volume)Ordered By: Jennifer Tarango on 04-03-2024 Albumin [Mass/Vol] 3.4 g/dL 3.2-5.0 [facility] Serum or plasma calcium scott urement (mass/volume)Ordered By: Jennifer Tarango on 04-03-2024 Calcium [Mass/Vol] 9.3 mg/dL 8.5-10.1 [facility] Serum or plasma creatinine m easurement (mass/volume)Ordered By: Jennifer Tarango on 04-03-2024 Creatinine [Mass/Vol] 1.42 mg/dL High 0.55-1.02 [facility] Comment on above: The validity of the calculated GFR & GFRAA in patients over 70 years has not been determined. Clinical correlation is essential. Serum or plasma urea nitroge n measurement (mass/volume)Ordered By: Jennifer Tarango on 04-03-2024 Urea nitrogen [Mass/Vol] 31 mg/dL High 7-18 [facility] Sodium levelOrdered By: Dustin Tarango on 04-03-2024 Sodium [Moles/Vol] 140 mmol/L 136-145 [facility] INR Coag (BldC) [Relative ti me]Ordered By: Basim Velasquez on 03-21-2024 INR Coag (Bld) [Relative time] 2.3 {INR} [facility] Comment on above: Critical Value > 4.0 International normalized rat io (INR) measurement by fingerstickOrdered By: Basim Velasquez on 03-21-2024 INR Coag (BldC) [Relative time] 2.3 [facility] Comment on above: Critical Value > 4.0 PT Coag (Bld) [Time]Ordered By: Basim Velasquez on 03-21-2024 Bedside Prothrombin Time 24.0 SEC High 11.7-14.9 [facility] Protime w/INR Fingerstickon 03-21-2024 INR Coag (PPP) [Relative time] 2.3 {INR} Normal [facility] Comment on above: Result Comment: Crit ical Value > 4.0 Performed By: #### L 500.2500, L100.0100 #### [facility] [address] [place], [place], [address] Protime Coagsen 24.0 SEC High 11.7-14.9 [facility] Comment on above: Performed By: #### L 500.2500, L100.0100 #### [facility] [address] [place], [address] Whole blood prothrombin time Ordered By: Basim Velasquez on 03-21-2024 PT Coag (Bld) [Time] 24.0 s High 11.7-14.9 [facility] Prothrombin Time w/INRon INR Normal [facility] Comment on above: Result Comment: FING ERSTICK Performed By: #### L 9200.0000 #### [facility] [address] [place], [address] PROTIME Normal 11.7-14.9 [facility] Comment on above: Result Comment: FING ERSTICK Performed By: #### L 9200.0000 #### [facility] [address] [place], [address] Protime w/INR Fingerstickon 02-28-2024 INR Coag (PPP) [Relative time] 3.1 {INR} Normal [facility] Comment on above: Result Comment: Crit ical Value > 4.0 Performed By: #### L 9200.0000 #### [facility] [address] [place], [address] Protime Coagsen 32.1 SEC High 11.7-14.9 [facility] Comment on above: Performed By: #### L 9200.0000 #### [facility] [address] [place], [address] Renal Profileon 02-28-2024 ALB Normal 3.2-5.0 [facility] Comment on above: Order Comment: RENAL IS FOR Result Comment: UNRULY ERSTICK Performed By: #### L 9200.0000 #### [facility] [address] [place], [address] BUN Normal 7-18 [facility] Comment on above: Order Comment: RENAL IS FOR Result Comment: FING ERSTICK Performed By: #### L 9200.0000 #### [facility] [address] [place], [address] BUN/CRE Normal 10-20 [facility] Comment on above: Order Comment: RENAL IS FOR Result Comment: FING ERSTICK Performed By: #### L 9200.0000 #### [facility] [address] [place], [address] CA,Total Normal 8.5-10.1 [facility] Comment on above: Order Comment: RENAL IS FOR Result Comment: FING ERSTICK Performed By: #### L 9200.0000 #### [facility] [address] [place], [address] CL Normal 98-107 [facility] Comment on above: Order Comment: RENAL IS FOR Result Comment: FING ERSTICK Performed By: #### L 9200.0000 #### [facility] [address] [place], [address] CO2 Normal 21.0-32.0 [facility] Comment on above: Order Comment: RENAL IS FOR Result Comment: FING ERSTICK Performed By: #### L 9200.0000 #### [facility] [address] [place], [address] CREAT,SERUM Normal 0.55-1.02 [facility] Comment on above: Order Comment: RENAL IS FOR Result Comment: FING ERSTICK Performed By: #### L 9200.0000 #### [facility] [address] [place], [address] EST GFR Normal >60 [facility] Comment on above: Order Comment: RENAL IS FOR Result Comment: FING ERSTICK Performed By: #### L 9200.0000 #### [facility] [address] [place], [address] EST GFR - AA Normal >60 [facility] Comment on above: Order Comment: RENAL IS FOR Result Comment: FING ERSTICK Performed By: #### L 9200.0000 #### [facility] [address] [place], [address] GLU Normal 74-106 [facility] Comment on above: Order Comment: RENAL IS FOR Result Comment: FING ERSTICK Performed By: #### L 9200.0000 #### [facility] [address] [place], [address] PHOS Normal 2.5-4.9 [facility] Comment on above: Order Comment: RENAL IS FOR Result Comment: FING ERSTICK Performed By: #### L 9200.0000 #### [facility] [address] [place], [address] Potassium Normal 3.5-5.1 [facility] Comment on above: Order Comment: RENAL IS FOR Result Comment: FING ERSTICK Performed By: #### L 9200.0000 #### [facility] [address] [place], [address] Renal Profile Normal 136-145 [facility] Comment on above: Order Comment: RENAL IS FOR Result Comment: FING ERSTICK Performed By: #### L 9200.0000 #### [facility] [address] [place], [address] CNPNon 02-22-2024 [facility] Telephone (INTMWS) -------- LINDA PERALTA ([id number]) 1945 F Date Time Provider Department 02/22/24 [...] her right thyroid. She should have her extension service supervisor follow up on this at her next routine appointment. Carlos Roe RN 02/22/2024 9:16 AM Signed Pt called and is notified of results and given providers message. Pt voices understanding. States her Chief Of Hospital Medicine is Dr. Alexander Gregory in [facility]. 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 Will fax this msg and CT [...] disease) [I25.10] 04/25/2009 DVT (deep venous thrombosis) ([facility]) [I82.409] 03/23/2012 01/23/2024 Osteopenia on [...] Status:Closed by CARLOS ROE on 02/22/24 Normal [facility] Basic metabolic 2000 panelon 02-01-2024 Anion gap [Moles/Vol] 12 mmol/L Normal - [facility] Comment on above: Order Comment: Speci men Type: BLOOD SPECIMENOrdering Facility: [facility] Address: [address] [place], [place] [address] [address] Performed By: #### 2 4321-2 ####[facility] MILLTOWNCLIA [id number] [place] [address] [place] Calcium [Mass/Vol] 9.9 mg/dL Normal 8.5-10.2 [facility] Comment on above: Order Comment: Speci men Type: BLOOD SPECIMENOrdering Facility: [facility] Address: [address] [place] [address] Performed By: #### 2 4321-2 ####[facility] MILLWNCLIA [id number] [place] [address] [place] Chloride [Moles/Vol] 108 mmol/L High 98-107 [facility] Comment on above: Order Comment: Speci men Type: BLOOD SPECIMENOrdering Facility: [facility] Address: [address] [place] [address] Performed By: #### 2 4321-2 ####[facility] HOSPITALLIA [id number] [place] [address] [place] CO2 [Moles/Vol] 23 mmol/L Normal 22-30 [facility] Comment on above: Order Comment: Speci men Type: BLOOD SPECIMENOrdering Facility: [facility] Address: [address] [place] [address] Performed By: #### 2 4321-2 ####[facility] NASSAUWNCLIA [id number] [place] [address] [place] Creatinine [Mass/Vol] 1.36 mg/dL High 0.58-0.96 [facility] Comment on above: Order Comment: Speci men Type: BLOOD SPECIMENOrdering Facility: [facility] Address: [address] [place] [address] Performed By: #### 2 4321-2 ####[facility] [id number] [place] [address] [place] Creatinine and Glomerular filtration rate.predicted panel (S/P/Bld) 39 mL/min/1.73m??? Low >=60 [facility] Comment on above: Order Comment: Jody fairbanks Type: BLOOD SPECIMENOrdering Facility: [facility] Address: [address] [place] [address] Result Comment: Marisabel mated Glomerular Filtration Rate [...] actual GFR. Performed By: #### 2 4321-2 ####[facility] [id number] [place] [address] [place] Glucose [Mass/Vol] 93 mg/dL Normal 74-99 [facility] Comment on above: Order Comment: Jody fairbanks Type: BLOOD SPECIMENOrdering Facility: [facility] Address: [address] [place] [address] Result Comment: The Stateless Diabetes Association (ADA) provides guidance for cutoff [...] Standards of Medical Care in Diabetes 2016, Stateless Diabetes Association. Diabetes Care. 2016.39(Suppl 1). Performed By: #### 2 4321-2 ####[facility] [id number] [place] [address] [place] Potassium [Moles/Vol] 3.9 mmol/L Normal 3.7-5.1 [facility] Comment on above: Order Comment: Speci men Type: BLOOD SPECIMENOrdering Facility: [facility] Address: [address] [place], [place] [address] Performed By: #### 2 4321-2 ####[facility] NERINCCLAUDIO [id number] [place] [address] [place] Sodium [Moles/Vol] 143 mmol/L Normal 136-144 [facility] Comment on above: Order Comment: Speci men Type: BLOOD SPECIMENOrdering Facility: [facility] Address: [address] [place] [address] Performed By: #### 2 4321-2 ####[facility] NERINCCLAUDIO [id number] [address] [place] Urea nitrogen [Mass/Vol] 39 mg/dL High 7-21 [facility] Comment on above: Order Comment: Speci men Type: BLOOD SPECIMENOrdering Facility: [facility] Address: [address] [place] [address] Performed By: #### 2 4321-2 ####[facility] JACKSONWNCLIA [id number] [address] [place] CT CHEST WO IVCONon 02-01-20 CT CHEST WO IVCON * * *Final Report* * * DATE OF EXAM: Feb 01 2024 11:20AM [facility] 0541 - CT CHEST WO IVCON [...] be communicated with the ordering provider via [employer] staff message or phone message by [employer] within 2 business days of report finalization. --END OF FINDING-- Entry Level Web Developer: PSCB Transcribe Date/Time: Feb 06 2024 12:06P Dictated by : DESIRAE MOSELEY MD This examination was interpreted and the report reviewed and electronically signed by: DESIRAE MOSELEY MD on Feb 06 2024 12:23PM EST [id number] ACTIONABLE Invalid Interpretation Code [facility] Lipid 1996 panelon 4 Cholesterol [Mass/Vol] 169 mg/dL Normal <200 Cl [facility] Comment on above: Order Comment: Speci men Type: BLOOD SPECIMENOrdering Facility: [facility] Address: [address] [place] [address] Result Comment: <200 mg/dL, Desirable 200-239 mg/dL, Borderline high >239 mg/dL, High Performed By: #### 2 4331-1 ####[facility] LABCLIA [id number] [id number] [place] [address] [id number] [place] [address] [place] Cholesterol in HDL [Mass/Vol] 78 mg/dL Normal >39 [facility] Comment on above: Order Comment: Speci men Type: BLOOD SPECIMENOrdering Facility: [facility] Address: [address] [place] [address] Result Comment: 40-5 9 mg/dL, Acceptable >59 mg/dL, High: Negative risk factor for coronary heart disease <40 mg/dL, Low: Positive risk factor for coronary heart disease Performed By: #### 2 4331-1 ####[facility] LABCLIA [id number] [address] [id number] [place] [address] [place] Cholesterol in LDL [Mass/Vol] 79 mg/dL Normal <100 [facility] Comment on above: Order Comment: Speci men Type: BLOOD SPECIMENOrdering Facility: [facility] Address: [address] [place] [address] Result Comment: <100 mg/dL, Optimal 100-129 mg/dL, Near optimal/above optimal 130-159 mg/dL, Borderline high 160-189 mg/dL, High >189 mg/dL, Very high Secondary prevention optimal LDL Cholesterol levels are recommended to be < 70 mg/dL Performed By: #### 2 4331-1 ####[facility] LABCLIA [id number] [place] [id number] [facility] [id number] [place] [address] [place] Cholesterol in LDL/Cholesterol in HDL [Mass ratio] 1.01 {ratio} Normal <2.54 [facility] Comment on above: Order Comment: Jody men Type: BLOOD SPECIMENOrdering Facility: [facility] Address: [address] [place] [address] Result Comment: Bernardo villagomez: 1. National Cholesterol Education Program ATP III Guideline At-A-Glance Quick Desk Reference: National Heart, Lung, and Blood [place]. National Institutes of Health. 2001: NIH Publication No. 01-3305. 2. An International Atherosclerosis Society position paper: global recommendations for the management of dyslipidemia: executive summary, Atherosclerosis. 2014: 232(2):410-413. Performed By: #### 2 4331-1 ####[facility] LABCLIA [id number] [id number] [place] [address] [place] Cholesterol in VLDL [Mass/Vol] 12 mg/dL Normal <30 [facility] Comment on above: Order Comment: Jody men Type: BLOOD SPECIMENOrdering Facility: [facility] Address: [address] [place] [address] Performed By: #### 2 4331-1 ####[facility] LABCLIA [id number] [address] [id number] [place] [address] [place] Cholesterol non HDL [Mass/Vol] 91 mg/dL Normal <130 [facility] Comment on above: Order Comment: Jody men Type: BLOOD SPECIMENOrdering Facility: [facility] Address: [address] [place] [address] Result Comment: <130 mg/dL, Optimal 130-159 mg/dL, Near optimal/above optimal 160-189 mg/dL, Borderline high 190-219 mg/dL, High >219 mg/dL, Very high Secondary prevention optimal non HDL Cholesterol levels are recommended to be <100 mg/dL Performed By: #### 2 4331-1 ####[facility] LABCLIA [id number] [address] [id number] [place] [address] [place] Cholesterol.total/Chol esterol in HDL [Mass ratio] 2.17 {ratio} Normal <5.10 [facility] Comment on above: Order Comment: Speci men Type: BLOOD SPECIMENOrdering Facility: [facility] Address: [address] [place] [address] Performed By: #### 2 4331-1 ####[facility] LABCLIA [id number] [address] [id number] [place] [address] [place] FASTING TIME 12 hrs Normal [facility] Comment on above: Order Comment: Speci men Type: BLOOD SPECIMENOrdering Facility: [facility] Address: [address] [place], [place] [address] Performed By: #### 2 4331-1 ####[facility] LABCLIA [id number] [address] [id number] [place] [address] [place] Triglyceride [Mass/Vol] 60 mg/dL Normal <150 [facility] Comment on above: Order Comment: Speci men Type: BLOOD SPECIMENOrdering Facility: [facility] Address: [address] [place], [place] [address] Result Comment: <150 mg/dL, Normal 150-199 mg/dL, Borderline high 200-499 mg/dL, High >499 mg/dL, Very high Performed By: #### 2 4331-1 ####[facility] LABCLIA [id number] [place] [id number] [facility] [id number] [place] [id number] [place] [facility] CNOVon 01-23-2024 CNOV Office Visit (INTMWS ) -------- LINDA PERALTA ([id number]) 1945 F Date Time Provider Department 01/23/24 [...] PCP - General Outside specialists seen: Cardiology-Dr. Otrega [facility] Nephrology- Dr. Jennifer Tarango Camp Maintenance Supervisor- Dr. sIreal Carpio Endocrinology- Dr. Alexander Gregory. Dermatology- Dr. [...] PM Signed This note was created using Clickpassriter. Subjective Linda Peralta is a 78 year [...] Use Vapin (more content not included)... Normal [facility] CNPNon 01-19-2024 CNPN Telephone (INTMWS) -------- LINDA PERALTA ([id number]) 1945 F Date Time Provider Department 01/19/24 [...] you in caring for your patient. ? [facility] is committed to? 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 Normal [facility] CNNURSEon 01-11-2024 [facility] Nurse Visit (FAMPWS) -------- LINDA PERALTA ([id number]) 1945 F Date Time Provider Department 01/11/24 2:00 PM [facility] During your visit today, we recorded [...] disease) [I25.10] 04/25/2009 DVT (deep venous thrombosis) ([facility]) [I82.409] 03/23/2012 Osteopenia on chronic [...] Status:Closed by DESIRAE ARZOLA on 01/11/24 Normal [facility] Protime w/INR Fingerstickon 01-04-2024 INR Coag (PPP) [Relative time] 2.8 {INR} Normal [facility] Comment on above: Result Comment: Crit ical Value > 4.0 Performed By: #### L 9200.0000 #### [facility] HospitalBeatris CageALLIGATOR, [place], [id number] Protime Coagsen 29.2 SEC High 11.7-14.9 [facility] Comment on above: Performed By: #### L 9200.0000 #### [facility] [address] [place], [address] XR CHEST 2V FRONTAL/LATon XR CHEST 2V [...] be communicated with the ordering provider via [employer] staff message by [employer] within 2 business days of report finalization. Entry Level Web Developer: PSCGianluca Transcribe Date/Time: Jan 01 2024 1:57P Dictated by : ELIZABETH GEORGE MD This examination was interpreted and the report reviewed and electronically signed by: ELIZABETH GEORGE MD on Jan 01 2024 1:58PM EST [id number] ACTIONABLE Invalid Interpretation Code [facility] XR Chest PA and LateralOrder ed By: Ccf Provider on 01-01-2024 Interpretation and review of laboratory results Abnormal [facility] Radiology Result ACTIONABLE Abnormal [facility] Comment on above: This report contains [...] contact your provider for the next steps. [facility] XR Chest PA and Lateralon IMPRESSION: Redemonstration of 2.1 cm nodular density in the right lower lobe. Incidental Finding: Follow-up Acuity: Incidental Finding: Suspicious appearing incidentally detected nodular lung density on CXR Routing Code: RI_1 Recommendation: CT Chest WO IVCON Time Frame: in 4 weeks COMMUNICATION:? Results will be communicated with the ordering provider via [employer] staff message by [employer] within 2 business days of report finalization. Entry Level Web Developer: STEPAN Transcribe Date/Time: Jan 01 2024 1:57P Dictated by : ELIZABETH GEORGE MD This examination was interpreted and the report reviewed and electronically signed by: ELIZABETH GEORGE MD on Jan 01 2024 1:58PM [facility] DIVISION OF RADIOLOGY * * *Final Report* [...] be communicated with the ordering provider via [employer] staff message by [employer] within 2 business days of report finalization. Entry Level Web Developer: STEPAN Transcribe Date/Time: Jan 01 2024 1:57P Dictated by : ELIZABETH GEORGE MD This examination was interpreted and the report reviewed and electronically signed by: ELIZABETH GEORGE MD on Jan 01 2024 1:58PM [facility] Radiology Study observation (narrative) [facility] Jayce 12-26-2023 [facility] Telephone (INTMWS) -------- LINDA PERALTA ([id number]) 1945 F Date Time Provider Department 12/26/23 AMOS FLOYD INTMWS During your visit today, we recorded the following information about you: Kelley Rivera LPN 12/26/2023 4:23 PM Addendum Bone density completed at [facility]. View External Imaging - Bone Density [ID [id number]] Previously completed PA for prolia to be [...] 12/28/2023 11:56 AM Addendum Called Pattie at [phone]. This PA is completed with pharmacy to aileen them at [phone]. This reference number is [id number]. Called pharmacy and they report there is a PA already on file for Dr. Rey Vann covered until 05/11/24. Did start a new PA for pcp. This was reviewed over the phone and PA approved from 12/28/23 to 12/27/24. This auth number is [id number]. They will also fax approval notice too. [...] colitis [K52.831] more content not included)... Normal [facility] Dexa Bone Density Studyon Dexa Bone Density Study [facility] Imaging Services [address] [place] [address] Dexa Bone Density Study MR#: [id number] Acct: [id number] Name: LINDA PERALTA Rep #: [id number] : 1945 F 78 From: Geovanni vargas MD PCP: Dr. Amos Floyd MD Status: [facility] Study: Dexa Bone Density Study Date of Exam: 12/21/23 Exam# [id number] Ordering Dr: Amos Floyd MD [id number] STUDY: DUAL ENERGY X-RAY ABSORPTIOMETRY / DXA [...] EST , CC: Dr. Amos Floyd MD Entry Level Web Developer: Signed [facility] 12-20-2023 [facility] Telephone (Global Grind) -------- LINDA PERALTA ([id number]) 1945 F Date Time Provider Department 12/20/23 [...] (non-ST elevated myocardial infarction) *06/09/2023 Adrenal insufficiency ([facility]) [E27.40] 06/12/2023 Nonrheumatic aortic valve stenosis [I35.0] 06/30/2023 Nodule of lower lobe of right lung needing foll*06/08/2023 Encounter Status:Closed by NATHALY REN on 12/20/23 [facility] Jayce 12-05-2023 ELLIE Telephone (INTMWS) -------- LINDA PERALTA ([id number]) 1945 F Date Time Provider Department 12/05/23 AMSO FLOYD INTMWS During your visit today, we recorded the following information about you: EriKelley nealRAYMUNDO 12/05/2023 4:20 PM Signed PA needed for prolia. EriKelley nealRAYMUNDO 12/06/2023 12:27 PM Signed In review the prolia is already approved with her insurance from 02/20/23 to 02/20/2024 through [facility]. Will call her insurance to see [...] went to pharmacy benefits. LINDA PERALTA (Kelly: [id number]) - [id number] Prolia 60MG/ML syringes status: PA Request Created: December 06, 2023 Sent: December 06, 2023 Will see what their response is,may have to call for medical benefits PA coverage to review. Kelley Rivera LPN 12/06/2023 4:32 PM Signed Pt notified we are waiting for insurance to review a prior auth for the prolia Kelley Rivera LPN 12/07/2023 10:12 AM Signed Fax rec'd from [facility] regarding the prolia. They note the prescription [...] Please advise patient, and cancel Rx at [facility] [place]. Amos Floyd MD 12/09/2023 12:12 PM Signed [...] [V999.95] 04/26/19 (more content not included)... Normal [facility] 1,25-dihydroxyvitamin D3 [Ma ss/Vol]on 11-11-2023 VIT D1,25 DIHYDROXY 63.7 pg/mL Normal 19.9-79.3 [facility] Comment on above: Order Comment: Speci men Type: BLOOD SPECIMENOrdering Facility: Alexander Gregory MD- [place] Address: [address] [place] [address] Performed By: #### 1 649-3 ####[facility] LABCLIA [id number] [address] [address] [place] Calcium.ionized [Moles/Vol]o n 11-11-2023 Calcium.ionized (Bld) [Mass/Vol] 1.30 mmol/L Normal 1.08-1.30 [facility] Comment on above: Order Comment: Speci men Type: BLOOD SPECIMENOrdering Facility: Alexander Worrell Address: [address] [place] [address] Performed By: #### 1 995-0 ####[facility] LABCL[facility] [id number] [address] [address] [place] Calcium.ionized adjusted to pH 7.4 (Bld) [Moles/Vol] 1.26 mmol/L Normal 1.08-1.30 [facility] Comment on above: Order Comment: Speci men Type: BLOOD SPECIMENOrdering Facility: Alexander Worrell Address: [address] [place], [place] [address] Performed By: #### 1 995-0 ####[facility] LABCLIA [id number] [place] [address] [place] Comprehensive metabolic 2000 panelon 11-11-2023 Albumin [Mass/Vol] 3.9 g/dL Normal 3.9-4.9 [facility] Comment on above: Order Comment: Speci men Type: BLOOD SPECIMENOrdering Facility: Alexander Worrell Address: [address] [place] [address] Performed By: #### 2 777-1, 2731-8, 13876-6, 6 ####[facility] LABCLIA [id number] [place] [address] [place] ALP [Catalytic activity/Vol] 90 U/L Normal 34-123 [facility] Comment on above: Order Comment: Speci men Type: BLOOD SPECIMENOrdering Facility: Alexander Worrell Address: [address] [place], [place] [address] Performed By: #### 2 777-1, 2731-8, 06019-2, 2142-6 ####[facility] LABCLIA [id number] [address] [address] [place] ALT [Catalytic activity/Vol] 19 U/L Normal 7-38 [facility] Comment on above: Order Comment: Speci men Type: BLOOD SPECIMENOrdering Facility: Alexander Worrell Address: [address] [place] [address] Performed By: #### 2 777-1, 273-8, , 2142-07 ####[facility] [id number] [address] [address] [place] Anion gap [Moles/Vol] 12 mmol/L Normal 8-15 [facility] Comment on above: Order Comment: Speci men Type: BLOOD SPECIMENOrdering Facility: Alexander Worrell Address: [address] [place] [address] Performed By: #### 2 777-1, 273-8, , 2142-07 ####[facility] [id number] [address] [address] [place] AST [Catalytic activity/Vol] 19 U/L Normal 13-35 [facility] Comment on above: Order Comment: Speci men Type: BLOOD SPECIMENOrdering Facility: Alexander Worrell Address: [address] [place] [address] Performed By: #### 2 777-1, 273-8, , 2142-07 ####[facility] LABIA [id number] [address] [address] [place] Bilirubin [Mass/Vol] 0.7 mg/dL Normal 0.2-1.3 [facility] Comment on above: Order Comment: Speci men Type: BLOOD SPECIMENOrdering Facility: Alexander Worrell Address: [address] [place] [address] Performed By: #### 2 777-1, 273-8, , 2142-07 ####[facility]CL[facility] [id number] [address] [address] [place] Calcium [Mass/Vol] 9.1 mg/dL Normal 8.5-10.2 [facility] Comment on above: Order Comment: Speci men Type: BLOOD SPECIMENOrdering Facility: Alexander Worrell Address: [address] [place] [address] Performed By: #### 2 777-1, 8, , 2142-07 ####[facility]CLIA [id number] [address] [address] [place] Chloride [Moles/Vol] 110 mmol/L High 98-107 [facility] Comment on above: Order Comment: Speci men Type: BLOOD SPECIMENOrdering Facility: Alexander Worrell Address: [address] [place], [place] [address] Performed By: #### 2 777-1, 2738, , 2142-07 ####[facility] LABCLIA [id number] [address] [address] [place] CO2 [Moles/Vol] 22 mmol/L Normal 22-30 [facility] Comment on above: Order Comment: Speci men Type: BLOOD SPECIMENOrdering Facility: Alexander Worrell Address: [address] [place] [address] Performed By: #### 2 777-1, 2738, 27973-3, 2142-07 ####[facility] LABIA [id number] [address] [address] [place] Creatinine [Mass/Vol] 1.38 mg/dL High 0.58-0.96 [facility] Comment on above: Order Comment: Speci men Type: BLOOD SPECIMENOrdering Facility: Alexander Worrell Address: [address] [place] [address] Performed By: #### 2 777-1, 2731-8, 25187-1, 3-6 ####[facility] LABIA [id number] [place] [address] [place] Creatinine and Glomerular filtration rate.predicted panel (S/P/Bld) 39 mL/min/1.73m??? Low >=60 [facility] Comment on above: Order Comment: Jody fairbanks Type: BLOOD SPECIMENOrdering Facility: Alexander Worrell Address: [address] [place] [address] Result Comment: Marisabel mated Glomerular Filtration Rate [...] GFR. Performed By: #### 2 777-1, 2731-8, 35221-5, 3-6 ####[facility] LABIA [id number] [address] [address] [place] Glucose [Mass/Vol] 68 mg/dL Low 74-99 [facility] Comment on above: Order Comment: Jody fairbanks Type: BLOOD SPECIMENOrdering Facility: Alexander Worrell Address: [address] [place], [place] [address] Result Comment: The Stateless Diabetes Association (ADA) provides guidance for cutoff [...] Standards of Medical Care in Diabetes 2016, Stateless Diabetes Association. Diabetes Care. 2016.39(Suppl 1). Performed By: #### 2 777-1, 8, , 2142-07 ####[facility] LABCLIA [id number] [address] [address] [place] Potassium [Moles/Vol] 3.7 mmol/L Normal 3.7-5.1 [facility] Comment on above: Order Comment: Speci men Type: BLOOD SPECIMENOrdering Facility: Alexander Worrell Address: [address] [place] [address] Performed By: #### 2 777-1, 8, , 2142-07 ####[facility] LABCLIA [id number] [address] [address] [place] Protein [Mass/Vol] 5.9 g/dL Low 6.3-8.0 [facility] Comment on above: Order Comment: Speci men Type: BLOOD SPECIMENOrdering Facility: Alexander Worrell Address: [address] [place] [address] Performed By: #### 2 777-1, 2730-09, , 2142-07 ####[facility]CLIA [id number] [address] [address] [place] Sodium [Moles/Vol] 144 mmol/L Normal 136-144 [facility] Comment on above: Order Comment: Speci men Type: BLOOD SPECIMENOrdering Facility: Alexander Worrell Address: [address] [place] [address] Performed By: #### 2 777-1, 2730-09, , 2142-07 ####[facility]CLIA [id number] [address] [address] [place] Urea nitrogen [Mass/Vol] 36 mg/dL High 7-21 [facility] Comment on above: Order Comment: Speci men Type: BLOOD SPECIMENOrdering Facility: Alexander Worrell Address: [address] [place] [address] Performed By: #### 2 777-1, 2730-8, 20131-5, 2142-07 ####[facility] LABCLIA [id number] [place] [address] [place] Cortis SerPl-mCncon 11-11-19 Cortisol [Mass/Vol] 2.3 ug/dL Low 4.8-19.5 [facility] Comment on above: Order Comment: Speci men Type: BLOOD SPECIMENOrdering Facility: Alexander Worrell Address: [address] [place] [address] Result Comment: Prov ided reference range is from 6-10 AM sample collection time. Cortisol Reference Range: 6-10 AM = 4.8-19.5 ug/dL, 4-8 PM = 2.5-11.9 ug/dL Performed By: #### 2 777-1, 8, 09651-3, 2142-07 ####[facility] LABCLIA [id number] [place] [address] [place] PTH-Intact SerPl-mCncon - Parathyrin.intact [Mass/Vol] 113 pg/mL High 15-65 [facility] Comment on above: Order Comment: Speci men Type: BLOOD SPECIMENOrdering Facility: Alexander Worrell Address: [address] [place], [place] [address] Performed By: #### 2 777-1, 2738, 11065-7, 2142-07 ####[facility] LABCLIA [id number] [place] [address] [place] Phosphate SerPl-mCncon 11-10 Phosphate [Mass/Vol] 2.1 mg/dL Low 2.7-4.8 [facility] Comment on above: Order Comment: Speci men Type: BLOOD SPECIMENOrdering Facility: Alexander Gregory [facility] Address: [address] [place] [address] Performed By: #### 2 777-1, 2731-8, 83447-3, 2143-6 ####[facility] LABCLIA [id number] [address] STATES OF [facility] Capillary blood internationa l normalized ratio (INR)Ordered By: Basim Velasquez on 06-19-2023 INR Coag (BldC) [Relative time] 2.0 [facility] Comment on above: Critical Value > 4.0 Whole blood prothrombin time Ordered By: Basim Velasquez on 06-19-2023 PT Coag (Bld) [Time] 21.3 s 11.7-14.9 [facility] Capillary blood internationa l normalized ratio (INR)Ordered By: Basim Velasquez on 05-31-2023 INR Coag (BldC) [Relative time] 2.1 [facility] Comment on above: Critical Value > 4.0 Whole blood prothrombin time Ordered By: Basim Velasquez on 05-31-2023 PT Coag (Bld) [Time] 22.2 s 11.7-14.9 [facility] 1,25-dihydroxyvitamin D3 [Ma ss/Vol]on 05-26-2023 Interpretation and review of laboratory results Abnormal [facility] Basic metabolic 2000 panelon 05-26-2023 Anion gap [Moles/Vol] 11 mmol/L 10 - 2 0 mmol/L [facility] Calcium [Mass/Vol] 8.6 mg/dL 8.6 - 10. 3 mg/dL [facility] Chloride [Moles/Vol] 112 mmol/L High 98 - 10 7 mmol/L [facility] CO2 [Moles/Vol] 22 mmol/L 21 - 32 mmol/L [facility] Creatinine [Mass/Vol] 1.60 mg/dL High 0.50 - 1.05 mg/dL [facility] GFR/1.73 sq M.predicted among non-blacks MDRD (S/P/Bld) [Vol rate/Area] 32 mL/min/{1.73_m2} Low - PINF [facility] Comment on above: Calculations of marisabel mated GFR are performed using the 2020 CKD-EPI Study Refit equation without the race variable for the IDMS-Traceable creatinine methods. https://jasn.asnjournals.org/content//ASN.92231 [address] Glucose [Mass/Vol] 84 mg/dL 74 - 99 mg/dL [facility] Interpretation and review of laboratory results Abnormal [facility] Potassium [Moles/Vol] 4.3 mmol/L 3.5 - 5.3 mmol/L [facility] Sodium [Moles/Vol] 141 mmol/L 136 - 145 mmol/L [facility] Urea nitrogen [Mass/Vol] 25 mg/dL High 6 - 23 mg/dL [facility] Anion gap [Moles/Vol] 11 mmol/L Normal 10-20 [facility] Comment on above: Performed By: #### 1 994-3 #### THELMA DENNISON ([id number]) [facility] ([facility]) [address] [place] [address] Calcium [Mass/Vol] 8.6 mg/dL Normal 8.6-10.3 [facility] Comment on above: Performed By: #### 1 994-3 #### AURELIAIBLIBRADO DENNISON ([id number]) [facility] ([facility]) [address] [place] [address] Chloride [Moles/Vol] 112 mmol/L High 98-107 [facility] Comment on above: Performed By: #### 1 994-3 #### AURELIAIBLIBRADO MONGE RIO ORTEGA ([id number]) [facility] ([facility]) [address] [place] [address] CO2 [Moles/Vol] 22 mmol/L Normal 21-32 [facility] Comment on above: Performed By: #### 1 994-3 #### AURELIAIBLIBRADO DENNISON ([id number]) [facility] ([facility]) [address] [place] [address] Creatinine [Mass/Vol] 1.60 mg/dL High 0.50-1.05 [facility] Comment on above: Performed By: #### 1 994-3 #### THELMA DENNISON ([id number]) [facility] ([facility]) [address] [place] [address] Glomerular filtration rate/1.73 sq M.predicted 32 mL/min/1.73m*2 Low >60 [facility] Comment on above: Result Comment: Calc ulations of estimated GFR are performed using the 2020 CKD-EPI Study Refit equation without the race variable for the IDMS-Traceable creatinine methods. https://jasn.asnjournals.org/content/early//ASN.42256 05155 Performed By: #### 1 994-3 #### THELMA DENNISON ([id number]) [facility] ([facility]) [address] [place] [address] Glucose [Mass/Vol] 84 mg/dL Normal 74-99 [facility] Comment on above: Performed By: #### 1 994-3 #### THELMA DENNISON ([id number]) [facility] ([facility]) [address] [place] [address] Potassium [Moles/Vol] 4.3 mmol/L Normal 3.5-5.3 [facility] Comment on above: Performed By: #### 1 994-3 #### THELMA DENNISON ([id number]) [facility] ([facility]) [address] [place] [address] Sodium [Moles/Vol] 141 mmol/L Normal 136-145 [facility] Comment on above: Performed By: #### 1 994-3 #### THELMA DENNISON ([id number]) [facility] ([facility]) [address] [place] [address] Urea nitrogen [Mass/Vol] 25 mg/dL High 6-23 [facility] Comment on above: Performed By: #### 1 994-3 #### THELMA DENNISON ([id number]) [facility] ([facility]) [address] [place] [address] CBC panel Auto (Bld)on 05-25 Erythrocyte distribution width (RBC) [Ratio] 14.5 % 11.5 - 14.5 % [facility] Hematocrit (Bld) [Volume fraction] 41.0 % 36.0 - 46.0 % [facility] Hemoglobin (Bld) [Mass/Vol] 13.4 g/dL 12.0 - 16.0 g/dL [facility] Interpretation and review of laboratory results Abnormal [facility] MCH (RBC) [Entitic mass] 29.4 pg 26.0 - 34.0 pg [facility] MCHC (RBC) [Mass/Vol] 32.7 g/dL 32.0 - 36.0 g/dL [facility] MCV (RBC) [Entitic vol] 90 fL 80 - 100 fL [facility] Nucleated RBC/100 WBC (Bld) [Ratio] 0.0 % [facility] Platelets (Bld) [#/Vol] 251 10*3/uL [facility] RBC (Bld) [#/Vol] 4.56 10*6/uL [facility] WBC (Bld) [#/Vol] 12.9 10*3/uL High [facility] Erythrocyte distribution width (RBC) [Ratio] 14.5 % Normal 11.5-14.5 [facility] Comment on above: Performed By: #### 3 4529-8 #### THELMA DENNISON ([id number]) [facility] ([facility]) [address] [place] [address] Hematocrit (Bld) [Volume fraction] 41.0 % Normal 36.0-46.0 [facility] Comment on above: Performed By: #### 3 4529-8 #### THELMA DENNISON (30520) [facility] ([facility]) [address] [place] [address] Hemoglobin (Bld) [Mass/Vol] 13.4 g/dL Normal 12.0-16.0 [facility] Comment on above: Performed By: #### 3 4529-8 #### THELMA DENNISON ([id number]) [facility] ([facility]) [address] [place] [address] MCH (RBC) [Entitic mass] 29.4 pg Normal 26.0-34.0 [facility] Comment on above: Performed By: #### 3 4529-8 #### THELMA DENNISON ([id number]) [facility] ([facility]) [address] [place] [address] MCHC (RBC) [Mass/Vol] 32.7 g/dL Normal 32.0-36.0 [facility] Comment on above: Performed By: #### 3 4529-8 #### THELMA DENNISON ([id number]) [facility] ([facility]) [address] [place] [address] MCV (RBC) [Entitic vol] 90 fL Normal 80-100 [facility] Comment on above: Performed By: #### 3 4529-8 #### THELMA DENNISON ([id number]) [facility] ([facility]) [address] [place] [address]87[address] Nucleated RBC/100 WBC (Bld) [Ratio] 0.0 /100 WBCs Normal 0.0-0.0 [facility] Comment on above: Performed By: #### 3 4529-8 #### THELMA DENNISON (59335) [facility] ([facility]) [address] [place] [address]686 Platelets (Bld) [#/Vol] 251 x10*3/uL Normal 150-450 [facility] Comment on above: Performed By: #### 3 4529-8 #### THELMA DENNISON ([id number]) [facility] ([facility]) [address] [place] [address]23[address] RBC (Bld) [#/Vol] 4.56 x10*6/uL Normal 4.00-5.20 [facility] Comment on above: Performed By: #### 3 4529-8 #### THELMA DENNISON ([id number]) [facility] ([facility]) [address] [place] [address] WBC (Bld) [#/Vol] 12.9 x10*3/uL High 4.4-11.3 [facility] Comment on above: Performed By: #### 3 4529-8 #### THELMA DENNISON ([id number]) [facility] ([facility]) [address] [place] [address] Coagulation tissue factor in ducedon 05-26-2023 PT Coag (PPP) [Time] 22.7 s High 9.8-12.8 [facility] Comment on above: Performed By: #### 3 4529-8 #### THELMA DENNISON ([id number]) [facility] ([facility]) [address] [place] [address]121 No Panel Informationon 05-25 Extra Tube Hold for add-ons. [facility] Comment on above: Auto resulted. [facility] PT Coag (PPP) [Time]on 05-25 INR Coag (PPP) [Relative time] 2.0 High 0.9-1.1 [facility] Comment on above: Performed By: #### 3 4529-8 #### THELMA DENNISON ([id number]) [facility] ([facility]) [address] [place] [address]75 INR Coag (PPP) [Relative time] 2.0 {INR} High 0.9 - 1.1 [facility] Interpretation and review of laboratory results Abnormal [facility] Protime-INRon 05-26-2023 PT Coag (PPP) [Time] 22.[address] [facility] Vitamin D 1,25 Dihydroxy (fo r eval of hypercalcemia)on 04-05-2024 1,25-dihydroxyvitamin D3 [Mass/Vol] 179.0 pg/mL High 19.9 - 79.3 pg/mL [facility] Comment on above: INTERPRETIVE INFORMA TION: Vitamin D, 1,25-Dihydroxy This test is primarily indicated during patient evaluation for hypercalcemia and renal failure. A normal result does not rule out Vitamin D deficiency. The recommended test for diagnosing Vitamin D deficiency is Vitamin D 25-hydroxy. Performed By: [facility] [address] [place] [address] Claim Administrator: Jefferson Kerr MD, PhD CLIA Number: [id number] 25-hydroxyvitamin D3 [Mass/V ol]on 05-25-2023 Interpretation and review of laboratory results Normal [facility] Deficiency: < 20 ng/ ml Insufficiency: 20-29 ng/ml Sufficiency: 30-100 ng/ml This assay accurately quantifies the sum of Vitamin D3, 25-Hydroxy and Vitamin D2,25-Hydroxy. [facility] Basic metabolic 2000 panelon 05-25-2023 Anion gap [Moles/Vol] 11 mmol/L Normal 10-20 [facility] Comment on above: Performed By: #### 3 4529-8 #### THELMA DENNISON ([id number]) [facility] (C) [address] [place] [address] Calcium [Mass/Vol] 9.9 mg/dL Normal 8.6-10.3 [facility] Comment on above: Performed By: #### 3 4529-8 #### THELMA DENNISON ([id number]) [facility] ([facility]) [address] [place] [address] Chloride [Moles/Vol] 109 mmol/L High 98-107 [facility] Comment on above: Performed By: #### 3 4529-8 #### THELMA DENNISON ([id number]) [facility] ([facility]) [address] [place] [address] CO2 [Moles/Vol] 23 mmol/L Normal 21-32 [facility] Comment on above: Performed By: #### 3 4529-8 #### AURELIAIBLIBRADO NOEMI ORTEGA ([id number]) [facility] ([facility]) [address] [place] [address] Creatinine [Mass/Vol] 1.80 mg/dL High 0.50-1.05 [facility] Comment on above: Performed By: #### 3 4529-8 #### AURELIAIBLIBRADO NOEMI ORTEGA (43562) [facility] ([facility]) [address] [place] [address]687 Glomerular filtration rate/1.73 sq M.predicted 28 mL/min/1.73m*2 Low >60 [facility] Comment on above: Result Comment: Calc ulations of estimated GFR are performed using the 2020 CKD-EPI Study Refit equation without the race variable for the IDMS-Traceable creatinine methods. https://jasn.asnjournals.org/content//ASN.30617 55849 Performed By: #### 3 4529-8 #### THELMA NOEMI ORTEGA ([id number]) [facility] ([facility]) [address] [place] [address] Glucose [Mass/Vol] 135 mg/dL High 74-99 [facility] Comment on above: Performed By: #### 3 4529-8 #### THELMA NOEMI ORTEGA ([id number]) [facility] ([facility]) [address] [place] [address] Potassium [Moles/Vol] 3.7 mmol/L Normal 3.5-5.3 [facility] Comment on above: Performed By: #### 3 4529-8 #### ANAIBELIMARILIN NOEMI ORTEGA ([id number]) [facility] ([facility]) [address] [place] [address]663 Sodium [Moles/Vol] 139 mmol/L Normal 136-145 [facility] Comment on above: Performed By: #### 3 4529-8 #### AURELIAIBLIBRADO NOEMI ORTEGA ([id number]) [facility] ([facility]) [address] [place] [address] 32087 Urea nitrogen [Mass/Vol] 33 mg/dL High 6-23 [facility] Comment on above: Performed By: #### 3 4529-8 #### THELMA DENNISON ([id number]) [facility] ([facility]) [address] [place] [address] Anion gap [Moles/Vol] 11 mmol/L 10 - 2 0 mmol/L [facility] Calcium [Mass/Vol] 9.9 mg/dL 8.6 - 10. 3 mg/dL [facility] Chloride [Moles/Vol] 109 mmol/L High 98 - 10 7 mmol/L [facility] CO2 [Moles/Vol] 23 mmol/L 21 - 32 mmol/L [facility] Creatinine [Mass/Vol] 1.80 mg/dL High 0.50 - 1.05 mg/dL [facility] GFR/1.73 sq M.predicted among non-blacks MDRD (S/P/Bld) [Vol rate/Area] 28 mL/min/{1.73_m2} Low - PINF [facility] Comment on above: Calculations of marisabel mated GFR are performed using the 2020 CKD-EPI Study Refit equation without the race variable for the IDMS-Traceable creatinine methods. https://jasn.asnjournals.org/content/early//ASN.42572 90643 Glucose [Mass/Vol] 135 mg/dL High 74 - 99 mg/dL [facility] Interpretation and review of laboratory results Abnormal [facility] Potassium [Moles/Vol] 3.7 mmol/L 3.5 - 5.3 mmol/L [facility] Sodium [Moles/Vol] 139 mmol/L 136 - 145 mmol/L [facility] Urea nitrogen [Mass/Vol] 33 mg/dL High 6 - 23 mg/dL [facility] Calcidiolon 05-25-2023 25-hydroxyvitamin D3 [Mass/Vol] 45 ng/mL Normal 30-100 [facility] Comment on above: Order Comment: The A PTT is no longer used for monitoring Unfractionated Heparin Therapy. For monitoring Heparin Therapy, use the Heparin Assay. Performed By: #### 3 4529-8 #### THELMA DENNISON ([id number]) [facility] ([facility]) [address] [place] [address] 20167 Calcium, ionizedon Calcium.ionized (Bld) [Moles/Vol] 1.32 mmol/L 1.1 - 1.33 mmol/L [facility] Comment on above: The performance domi acteristics of ionized calcium tested in heparinized plasma or serum have been validated by the individual laboratory site where testing is performed. Testing on heparinized plasma or serum is not approved by the FDA; however, such approval is not necessary. Calcium.ionizedon 05-25-2023 Calcium.ionized (Bld) [Moles/Vol] 1.32 mmol/L Normal 1.1-1.33 [facility] Comment on above: Result Comment: The performance characteristics of ionized calcium tested in heparinized plasma or serum have been validated by the individual laboratory site where testing is performed. Testing on heparinized plasma or serum is not approved by the FDA; however, such approval is not necessary. Performed By: #### 3 4529-8 #### THELMA DENNISON ([id number]) [facility] ([facility] [address] [place] [address] 41945 Calcium.ionized (Bld) [Moles /Vol]on 05-25-2023 Interpretation and review of laboratory results Normal [facility] Coagulation tissue factor in ducedon 05-25-2023 PT Coag (PPP) [Time] 23.0 s High 9.8-12.8 [facility] Comment on above: Performed By: #### 3 4529-8 #### THELMA DENNISON ([id number]) [facility] ([facility]) [address] [place] [address] 05024 HbA1c (Bld) [Mass fraction]o n 05-25-2023 Average glucose Estimated from glycated hemoglobin (Bld) [Mass/Vol] 105 mg/dL Not Established [facility] Diagnosis of Diabetes-Adults Non-Diabetic: < or = 5.6% Increased risk for developing diabetes: 5.7-6.4% Diagnostic of diabetes: > or = 6.5% Monitoring of Diabetes Age (y)..................... .. Therapeutic Goal (%) Adults: >18..................... ....<7.0 Pediatrics: 13-18................... <7.5 Pediatrics: 7-12.................... <8.0 Pediatrics: 0-6..................... 7.5-8.5 [employer]. Diabetes Care 33(S1), Feb 2009 [facility] Average glucose Estimated from glycated hemoglobin (Bld) [Mass/Vol] 105 mg/dL Normal Not Established [facility] Comment on above: Order Comment: The A PTT is no longer used for monitoring Unfractionated Heparin Therapy. For monitoring Heparin Therapy, use the Heparin Assay. Performed By: #### 3 4529-8 #### THELMA DENNISON ([id number]) [facility] (C) [address] [place] [address] Hemoglobin A1Con 05-25-2023 HbA1c (Bld) [Mass fraction] 5.3 % see below [facility] Hemoglobin A1c/Hemoglobin.to gage 05-25-2023 HbA1c (Bld) [Mass fraction] 5.3 % Normal see below [facility] Comment on above: Order Comment: The A PTT is no longer used for monitoring Unfractionated Heparin Therapy. For monitoring Heparin Therapy, use the Heparin Assay. Performed By: #### 3 4529-8 #### THELMA DENNISON ([id number]) [facility] ([facility]) [address] [place] [address] No Panel Informationon 05-24 Extra Tube Hold for add-ons. [facility] Comment on above: Auto resulted. [facility] PT Coag (PPP) [Time]on 05-24 INR Coag (PPP) [Relative time] 2.0 High 0.9-1.1 [facility] Comment on above: Performed By: #### 3 4529-8 #### THELMA DENNISON ([id number]) [facility] ([facility]) [address] [place] [address] 45494 INR Coag (PPP) [Relative time] 2.0 {INR} High 0.9 - 1.1 [facility] Interpretation and review of laboratory results Abnormal [facility] PTH, Intacton 05-25-2023 Parathyrin.intact [Mass/Vol] 16.3 pg/mL Low 18.5 - 88.0 pg/mL [facility] Parathyrin related proteinon 05-25-2023 Parathyrin related protein [Moles/Vol] 1.1 pmol/L Normal < or = 4.2 [facility] Comment on above: Result Comment: ADDITIONAL INFORMATION This test was developed and its performance characteristics determined by [facility] in a manner consistent with CLIA requirements. This test has not been cleared or approved by the U.S. Food and Drug Administration. Test Performed by: [facility] [place] [address] Shuttle Fixer: Sunny Triplett M.D. Ph.D.; CLIA# [id number] Performed By: #### 1 994-3 #### THELMA DENNISON ([id number]) [facility] ([facility]) [address] [place] [address] 05279 Parathyrin.intacton 05-25-19 Parathyrin.intact [Mass/Vol] 16.3 pg/mL Low 18.5-88.0 [facility] Comment on above: Performed By: #### 3 4529-8 #### THELMA DENNISON ([id number]) [facility] ([facility]) [address] [place] [address] 12999 Parathyrin.intact [Mass/Vol] on 05-25-2023 Interpretation and review of laboratory results Abnormal [facility] Phosphateon 05-25-2023 Phosphate [Mass/Vol] 3.2 mg/dL Normal 2.5-4.9 [facility] Comment on above: Result Comment: The performance characteristics of phosphorus testing in heparinized plasma have been validated by the individual laboratory site where testing is performed. Testing on heparinized plasma is not approved by the FDA; however, such approval is not necessary. Performed By: #### 3 4529-8 #### THELMA DENNISON ([id number]) [facility] ([facility]) [address] [place] [address] Phosphate [Mass/Vol]on 05-24 Interpretation and review of laboratory results Normal [facility] Phosphoruson 05-25-2023 Phosphate [Mass/Vol] 3.2 mg/dL 2.5 - 4 .9 mg/dL [facility] Comment on above: The performance domi acteristics of phosphorus testing in heparinized plasma have been validated by the individual laboratory site where testing is performed. Testing on heparinized plasma is not approved by the FDA; however, such approval is not necessary. Protime-INRon 05-25-2023 PT Coag (PPP) [Time] 23.0 s [facility] Vitamin D 25-Hydroxy,Total ( for eval of Vitamin D levels)on 05-25-2023 25-hydroxyvitamin D3 [Mass/Vol] 45 ng/mL 30 - 100 ng/mL [facility] CBC W Auto Differential pane l (Bld)on 05-24-2023 Basophils (Bld) [#/Vol] 0.06 x10*3/uL Normal 0.00-0.10 [facility] Comment on above: Performed By: #### 5 7021-8 #### THELMA DENNISON ([id number]) [facility] ([facility]) [address] [place] [address] Basophils/100 WBC (Bld) 0.6 % Normal 0.0-2.0 [facility] Comment on above: Performed By: #### 5 7021-8 #### THELMA DENNISON ([id number]) [facility] ([facility]) [address] [place] [address] 98824 Eosinophils (Bld) [#/Vol] 1.08 x10*3/uL High 0.00-0.40 [facility] Comment on above: Performed By: #### 5 7021-8 #### THELMA DENNISON ([id number]) [facility] ([facility]) [address] [place] [address] 36735 Eosinophils/100 WBC (Bld) 11.2 % Normal 0.0-6.0 [facility] Comment on above: Performed By: #### 5 7021-8 #### THELMA DENNISON ([id number]) [facility] ([facility]) [address] [place] [address] 88590 Erythrocyte distribution width (RBC) [Ratio] 14.2 % Normal 11.5-14.5 [facility] Comment on above: Performed By: #### 5 7021-8 #### THELMA DENNISON ([id number]) [facility] ([facility]) [address] [place] [address] 03314 Hematocrit (Bld) [Volume fraction] 39.8 % Normal 36.0-46.0 [facility] Comment on above: Performed By: #### 5 7021-8 #### THELMA DENNISON ([id number]) [facility] ([facility]) [address] [place] [address] 25095 Hemoglobin (Bld) [Mass/Vol] 13.5 g/dL Normal 12.0-16.0 [facility] Comment on above: Performed By: #### 5 7021-8 #### THELMA DENNISON ([id number]) [facility] ([facility]) [address] [place] [address] 19143 Immature granulocytes (Bld) [#/Vol] 0.09 x10*3/uL Normal 0.00-0.50 [facility] Comment on above: Performed By: #### 5 7021-8 #### THELMA DENNISON ([id number]) [facility] ([facility]) [address] [place] [address] 05823 Immature granulocytes/100 WBC (Bld) 0.9 % Normal 0.0-0.9 [facility] Comment on above: Result Comment: Linda ture Granulocyte Count (IG) includes promyelocytes, myelocytes and metamyelocytes but does not include bands. Percent differential counts (%) should be interpreted in the context of the absolute cell counts (cells/UL). Performed By: #### 5 7021-8 #### THELMA DENNISON ([id number]) [facility] ([facility]) [address] [place] [address] 80761 Lymphocytes (Bld) [#/Vol] 1.90 x10*3/uL Normal 0.80-3.00 [facility] Comment on above: Performed By: #### 5 7021-8 #### THELMA DENNISON ([id number]) [facility] ([facility]) [address] [place] [address] 44788 Lymphocytes/100 WBC (Bld) 19.8 % Normal 13.0-44.0 [facility] Comment on above: Performed By: #### 5 7021-8 #### THELMA DENNISON ([id number]) [facility] ([facility]) [address] [place] [address] 16561 MCH (RBC) [Entitic mass] 29.3 pg Normal 26.0-34.0 [facility] Comment on above: Performed By: #### 5 7021-8 #### THELMA DENNISON ([id number]) [facility] ([facility]) [address] [place] [address] 50476 MCHC (RBC) [Mass/Vol] 33.9 g/dL Normal 32.0-36.0 [facility] Comment on above: Performed By: #### 5 7021-8 #### THELMA DENNISON ([id number]) [facility] ([facility]) [address] [place] [address] 91242 MCV (RBC) [Entitic vol] 86 fL Normal 80-100 [facility] Comment on above: Performed By: #### 5 7021-8 #### THELMA DENNISON ([id number]) [facility] ([facility]) [address] [place] [address] 36410 Monocytes (Bld) [#/Vol] 0.96 x10*3/uL High 0.05-0.80 [facility] Comment on above: Performed By: #### 5 7021-8 #### THELMA DENNISON ([id number]) [facility] ([facility]) [address] [place] [address] 63553 Monocytes/100 WBC (Bld) 10.0 % Normal 2.0-10.0 [facility] Comment on above: Performed By: #### 5 7021-8 #### THELMA DENNISON ([id number]) [facility] ([facility]) [address] [place] [address] 73774 Neutrophils (Bld) [#/Vol] 5.52 x10*3/uL High 1.60-5.50 [facility] Comment on above: Result Comment: Perc ent differential counts (%) should be interpreted in the context of the absolute cell counts (cells/uL). Performed By: #### 5 7021-8 #### THELMA DENNISON ([id number]) [facility] ([facility]) [address] [place] [address] 45768 Neutrophils/100 WBC (Bld) 57.5 % Normal 40.0-80.0 [facility] Comment on above: Performed By: #### 5 7021-8 #### THELMA DENNISON ([id number]) [facility] ([facility]) [address] [place] [address] 24390 Nucleated RBC/100 WBC (Bld) [Ratio] 0.0 /100 WBCs Normal 0.0-0.0 [facility] Comment on above: Performed By: #### 5 7021-8 #### THLEMA DENNISON ([id number]) [facility] ([facility]) [address] [place] [address] 37389 Platelets (Bld) [#/Vol] 249 x10*3/uL Normal 150-450 [facility] Comment on above: Performed By: #### 5 7021-8 #### THELMA DENNISON ([id number]) [facility] ([facility]) [address] [place] [address] 44944 RBC (Bld) [#/Vol] 4.61 x10*6/uL Normal 4.00-5.20 [facility] Comment on above: Performed By: #### 5 7021-8 #### THELMA DENNISON ([id number]) [facility] ([facility]) [address] [place] [address] 68132 WBC (Bld) [#/Vol] 9.6 x10*3/uL Normal 4.4-11.3 [facility] Comment on above: Performed By: #### 5 7021-8 #### THELMA DENNISON ([id number]) [facility] ([facility]) [address] [place] [address] 89746 Basophils (Bld) [#/Vol] 0.06 10*3/uL [facility] Basophils/100 WBC (Bld) 0.6 % 0.0 - 2.0 % [facility] Eosinophils (Bld) [#/Vol] 1.08 10*3/uL High [facility] Eosinophils/100 WBC (Bld) 11.2 % 0.0 - 6.0 % [facility] Erythrocyte distribution width (RBC) [Ratio] 14.2 % 11.5 - 14.5 % [facility] Hematocrit (Bld) [Volume fraction] 39.8 % 36.0 - 46.0 % [facility] Hemoglobin (Bld) [Mass/Vol] 13.5 g/dL 12.0 - 16.0 g/dL [facility] Immature granulocytes (Bld) [#/Vol] 0.09 10*3/uL [facility] Immature granulocytes/100 WBC (Bld) 0.9 % 0.0 - 0.9 % [facility] Comment on above: Immature Granulocyte Count (IG) includes promyelocytes, myelocytes and metamyelocytes but does not include bands. Percent differential counts (%) should be interpreted in the context of the absolute cell counts (cells/UL). Interpretation and review of laboratory results Abnormal [facility] Lymphocytes (Bld) [#/Vol] 1.90 10*3/uL [facility] Lymphocytes/100 WBC (Bld) 19.8 % 13.0 - 44.0 % [facility] MCH (RBC) [Entitic mass] 29.3 pg 26.0 - 34.0 pg [facility] MCHC (RBC) [Mass/Vol] 33.9 g/dL 32.0 - 36.0 g/dL [facility] MCV (RBC) [Entitic vol] 86 fL 80 - 100 fL [facility] Monocytes (Bld) [#/Vol] 0.96 10*3/uL [facility] Monocytes/100 WBC (Bld) 10.0 % 2.0 - 10.0 % [facility] Neutrophils (Bld) [#/Vol] 5.52 10*3/uL High [facility] Comment on above: Percent differential counts (%) should be interpreted in the context of the absolute cell counts (cells/uL). Neutrophils/100 WBC (Bld) 57.5 % 40.0 - 80.0 % [facility] Nucleated RBC/100 WBC (Bld) [Ratio] 0.0 % [facility] Platelets (Bld) [#/Vol] 249 10*3/uL [facility] RBC (Bld) [#/Vol] 4.61 10*6/uL [facility] WBC (Bld) [#/Vol] 9.6 10*3/uL [facility] Basophils (Bld) [#/Vol] 0.07 x10*3/uL Normal 0.00-0.10 [facility] Comment on above: Performed By: #### 5 7021-8 #### THELMA DENNISON ([id number]) [facility] ([facility]) [address] [place] [address] 37727 Basophils/100 WBC (Bld) 0.8 % Normal 0.0-2.0 [facility] Comment on above: Performed By: #### 5 7021-8 #### THELMA DENNISON ([id number]) [facility] ([facility]) [address] [place] [address] 46984 Eosinophils (Bld) [#/Vol] 1.09 x10*3/uL High 0.00-0.40 [facility] Comment on above: Performed By: #### 5 7021-8 #### THELMA DENNISON ([id number]) [facility] ([facility]) [address] [place] [address] Eosinophils/100 WBC (Bld) 12.0 % Normal 0.0-6.0 [facility] Comment on above: Performed By: #### 5 7021-8 #### THELMA DENNISON ([id number]) [facility] ([facility]) [address] [place] [address] Erythrocyte distribution width (RBC) [Ratio] 14.1 % Normal 11.5-14.5 [facility] Comment on above: Performed By: #### 5 7021-8 #### THELMA DENNISON ([id number]) [facility] ([facility]) [address] [place] [address] 79089 Hematocrit (Bld) [Volume fraction] 41.4 % Normal 36.0-46.0 [facility] Comment on above: Performed By: #### 5 7021-8 #### THELMA DENNISON ([id number]) [facility] ([facility]) [address] [place] [address] 08298 Hemoglobin (Bld) [Mass/Vol] 14.1 g/dL Normal 12.0-16.0 [facility] Comment on above: Performed By: #### 5 7021-8 #### THELMA DENNISON ([id number]) [facility] ([facility]) [address] [place] [address] 49093 Immature granulocytes (Bld) [#/Vol] 0.12 x10*3/uL Normal 0.00-0.50 [facility] Comment on above: Performed By: #### 5 7021-8 #### THELMA DENNISON ([id number]) [facility] ([facility]) [address] [place] [address] 57736 Immature granulocytes/100 WBC (Bld) 1.3 % High 0.0-0.9 [facility] Comment on above: Result Comment: Linda ture Granulocyte Count (IG) includes promyelocytes, myelocytes and metamyelocytes but does not include bands. Percent differential counts (%) should be interpreted in the context of the absolute cell counts (cells/UL). Performed By: #### 5 7021-8 #### THELMA DENNISON ([id number]) [facility] ([facility]) [address] [place] [address] 69566 Lymphocytes (Bld) [#/Vol] 1.88 x10*3/uL Normal 0.80-3.00 [facility] Comment on above: Performed By: #### 5 7021-8 #### THELMA DENNISON ([id number]) [facility] ([facility]) [address] [place] [address] 04853 Lymphocytes/100 WBC (Bld) 20.7 % Normal 13.0-44.0 [facility] Comment on above: Performed By: #### 5 7021-8 #### THELMA DENNISON ([id number]) [facility] ([facility]) [address] [place] [address] 44083 MCH (RBC) [Entitic mass] 29.4 pg Normal 26.0-34.0 [facility] Comment on above: Performed By: #### 5 7021-8 #### THELMA DENNISON ([id number]) [facility] ([facility]) [address] [place] [address] 44945 MCHC (RBC) [Mass/Vol] 34.1 g/dL Normal 32.0-36.0 [facility] Comment on above: Performed By: #### 5 7021-8 #### THELMA DENNISON ([id number]) [facility] ([facility]) [address] [place] [address] 23820 MCV (RBC) [Entitic vol] 86 fL Normal 80-100 [facility] Comment on above: Performed By: #### 5 7021-8 #### THELMA DENNISON ([id number]) [facility] ([facility]) [address] [place] [address] 77926 Monocytes (Bld) [#/Vol] 0.87 x10*3/uL High 0.05-0.80 [facility] Comment on above: Performed By: #### 5 7021-8 #### THELMA DENNISON ([id number]) [facility] ([facility] [address] [place] [address] 40360 Monocytes/100 WBC (Bld) 9.6 % Normal 2.0-10.0 [facility] Comment on above: Performed By: #### 5 7021-8 #### THELMA DENNISON ([id number]) [facility] ([facility]) [address] [place] [address] 64384 Neutrophils (Bld) [#/Vol] 5.05 x10*3/uL Normal 1.60-5.50 [facility] Comment on above: Result Comment: Perc ent differential counts (%) should be interpreted in the context of the absolute cell counts (cells/uL). Performed By: #### 5 7021-8 #### THELMA DENNISON ([id number]) [facility] ([facility]) [address] [place] [address] 30649 Neutrophils/100 WBC (Bld) 55.6 % Normal 40.0-80.0 [facility] Comment on above: Performed By: #### 5 7021-8 #### THELMA DENNISON ([id number]) [facility] ([facility]) [address] [place] [address] 73004 Nucleated RBC/100 WBC (Bld) [Ratio] 0.0 /100 WBCs Normal 0.0-0.0 [facility] Comment on above: Performed By: #### 5 7021-8 #### THELMA DENNISON ([id number]) [facility] ([facility]) [address] [place] [address] 56146 Platelets (Bld) [#/Vol] 240 x10*3/uL Normal 150-450 [facility] Comment on above: Performed By: #### 5 7021-8 #### THELMA DENNISON ([id number]) [facility] ([facility]) [address] [place] [address] 73185 RBC (Bld) [#/Vol] 4.80 x10*6/uL Normal 4.00-5.20 [facility] Comment on above: Performed By: #### 5 7021-8 #### THELMA DENNISON ([id number]) [facility] ([facility]) [address] [place] [address] 03776 WBC (Bld) [#/Vol] 9.1 x10*3/uL Normal 4.4-11.3 [facility] Comment on above: Performed By: #### 5 7021-8 #### THELMA DENNISON ([id number]) [facility] ([facility]) [address] [place] [address] 87346 Basophils (Bld) [#/Vol] 0.07 10*3/uL [facility] Basophils/100 WBC (Bld) 0.8 % 0.0 - 2.0 % [facility] Eosinophils (Bld) [#/Vol] 1.09 10*3/uL High [facility] Eosinophils/100 WBC (Bld) 12.0 % 0.0 - 6.0 % [facility] Erythrocyte distribution width (RBC) [Ratio] 14.1 % 11.5 - 14.5 % [facility] Hematocrit (Bld) [Volume fraction] 41.4 % 36.0 - 46.0 % [facility] Hemoglobin (Bld) [Mass/Vol] 14.1 g/dL 12.0 - 16.0 g/dL [facility] Immature granulocytes (Bld) [#/Vol] 0.12 10*3/uL [facility] Immature granulocytes/100 WBC (Bld) 1.3 % High 0.0 - 0.9 % [facility] Comment on above: Immature Granulocyte Count (IG) includes promyelocytes, myelocytes and metamyelocytes but does not include bands. Percent differential counts (%) should be interpreted in the context of the absolute cell counts (cells/UL). Interpretation and review of laboratory results Abnormal [facility] Lymphocytes (Bld) [#/Vol] 1.88 10*3/uL [facility] Lymphocytes/100 WBC (Bld) 20.7 % 13.0 - 44.0 % [facility] MCH (RBC) [Entitic mass] 29.4 pg 26.0 - 34.0 pg [facility] MCHC (RBC) [Mass/Vol] 34.1 g/dL 32.0 - 36.0 g/dL [facility] MCV (RBC) [Entitic vol] 86 fL 80 - 100 fL [facility] Monocytes (Bld) [#/Vol] 0.87 10*3/uL High [facility] Monocytes/100 WBC (Bld) 9.6 % 2.0 - 10.0 % [facility] Neutrophils (Bld) [#/Vol] 5.05 10*3/uL [facility] Comment on above: Percent differential counts (%) should be interpreted in the context of the absolute cell counts (cells/uL). Neutrophils/100 WBC (Bld) 55.6 % 40.0 - 80.0 % [facility] Nucleated RBC/100 WBC (Bld) [Ratio] 0.0 % [facility] Platelets (Bld) [#/Vol] 240 10*3/uL [facility] RBC (Bld) [#/Vol] 4.80 10*6/uL [facility] WBC (Bld) [#/Vol] 9.1 10*3/uL [facility] Calcitriolon 05-24-2023 1,25-dihydroxyvitamin D3 [Mass/Vol] 179.0 pg/mL High 19.9-79.3 [facility] Comment on above: Result Comment: INTE RPRETIVE INFORMATION: Vitamin D, 1,25-Dihydroxy This test is primarily indicated during patient evaluation for hypercalcemia and renal failure. A normal result does not rule out Vitamin D deficiency. The recommended test for diagnosing Vitamin D deficiency is Vitamin D 25-hydroxy. Performed By: [facility] [address] [place] [address] Claim Administrator: Jefferson Kerr MD, PhD [place] Number: [id number] Performed By: #### 3 4529-8 #### THELMA DENNISON ([id number]) [facility] ([facility]) [address] [place] [address] 56522 Calcium, ionizedon Calcium.ionized (Bld) [Moles/Vol] 1.53 mmol/L High 1.1 - 1.33 mmol/L [facility] Comment on above: The performance domi acteristics of ionized calcium tested in heparinized plasma or serum have been validated by the individual laboratory site where testing is performed. Testing on heparinized plasma or serum is not approved by the FDA; however, such approval is not necessary. Calcium.ionizedon 05-24-2023 Calcium.ionized (Bld) [Moles/Vol] 1.53 mmol/L High 1.1-1.33 [facility] Comment on above: Result Comment: The performance characteristics of ionized calcium tested in heparinized plasma or serum have been validated by the individual laboratory site where testing is performed. Testing on heparinized plasma or serum is not approved by the FDA; however, such approval is not necessary. Performed By: #### 1 994-3 #### THELMA DENNISON ([id number]) [facility] ([facility]) [address] [place] [address] 23118 Calcium.ionized (Bld) [Moles /Vol]on 05-24-2023 Interpretation and review of laboratory results Abnormal [facility] Coagulation tissue factor in ducedon 05-24-2023 PT Coag (PPP) [Time] 25.3 s High 9.8-12.8 [facility] Comment on above: Performed By: #### 5 902-2 #### THELMA DENNISON ([id number]) [facility] ([facility]) [address] [place] [address] 12321 Comprehensive metabolic 2000 panelon 05-24-2023 Albumin BCP dye [Mass/Vol] 3.1 g/dL Low 3.4-5.0 [facility] Comment on above: Performed By: #### 2 4323-8 #### THELMA DENNISON ([id number]) [facility] ([facility]) [address] [place] [address] 41073 ALP [Catalytic activity/Vol] 47 U/L Normal 33-136 [facility] Comment on above: Performed By: #### 2 4323-8 #### AURELIAIBLIBRADO DENNISON ([id number]) [facility] ([facility]) [address] [place] [address] 20459 ALT With P-5'-P [Catalytic activity/Vol] 39 U/L Normal 7-45 [facility] Comment on above: Result Comment: Liz ents treated with Sulfasalazine may generate falsely decreased results for ALT. Performed By: #### 2 4323-8 #### AURELIAIBLIBRADO DENNISON ([id number]) [facility] ([facility]) [address] [place] [address] 13946 Anion gap [Moles/Vol] 11 mmol/L Normal 10-20 [facility] Comment on above: Performed By: #### 2 4323-8 #### AURELIAIBLIBRADO DENNISON ([id number]) [facility] ([facility]) [address] [place] [address] 18453 AST With P-5'-P [Catalytic activity/Vol] 45 U/L High 9-39 [facility] Comment on above: Performed By: #### 2 4323-8 #### AURELIAIBLIBRADO DENNISON ([id number]) [facility] ([facility]) [address] [place] [address] 27836 Bilirubin [Mass/Vol] 0.5 mg/dL Normal 0.0-1.2 [facility] Comment on above: Performed By: #### 2 4323-8 #### AURELIAIBLIBRADO DENNISON ([id number]) [facility] ([facility]) [address] [place] [address] Calcium [Mass/Vol] 11.1 mg/dL High 8.6-10.3 [facility] Comment on above: Performed By: #### 2 4323-8 #### AURELIAIBLIBRADO MONGE MAILE VIVAS ([id number]) [facility] ([facility]) [address] [place] [address] Chloride [Moles/Vol] 108 mmol/L High 98-107 [facility] Comment on above: Performed By: #### 2 4323-8 #### AURELIAIBELIMARILIN MONGENOEMI ORTEGA ([id number]) [facility] ([facility]) [address] [place] [address] 86436 CO2 [Moles/Vol] 23 mmol/L Normal 21-32 [facility] Comment on above: Performed By: #### 2 4323-8 #### AURELIAIBELIMARILIN MONGENOEMIMAILE VIVAS ([id number]) [facility] ([facility]) [address] [place] [address] 99713 Creatinine [Mass/Vol] 1.87 mg/dL High 0.50-1.05 [facility] Comment on above: Performed By: #### 2 4323-8 #### AURELIAIBLIBRADO MARIPOSA VIVAS ([id number]) [facility] ([facility]) [address] [place] [address] 77125 Glomerular filtration rate/1.73 sq M.predicted 27 mL/min/1.73m*2 Low >60 [facility] Comment on above: Result Comment: Calc ulations of estimated GFR are performed using the 2020 CKD-EPI Study Refit equation without the race variable for the IDMS-Traceable creatinine methods. https://jasn.asnjournals.org/content/early/ASN.74304 71249 Performed By: #### 2 4323-8 #### AURELIAIBLIBRADO MONGE MAILE VIVAS ([id number]) [facility] ([facility]) [address] [place] [address] 89279 Glucose [Mass/Vol] 77 mg/dL Normal 74-99 [facility] Comment on above: Performed By: #### 2 4323-8 #### THELMA DENNISON ([id number]) [facility] ([facility]) [address] [place] [address] 72883 Potassium [Moles/Vol] 3.8 mmol/L Normal 3.5-5.3 [facility] Comment on above: Performed By: #### 2 4323-8 #### THELMA DENNISON ([id number]) [facility] ([facility]) [address] [place] [address] 36225 Protein [Mass/Vol] 5.1 g/dL Low 6.4-8.2 [facility] Comment on above: Performed By: #### 2 4323-8 #### THELMA DENNISON ([id number]) [facility] ([facility]) [address] [place] [address] 94361 Sodium [Moles/Vol] 138 mmol/L Normal 136-145 [facility] Comment on above: Performed By: #### 2 4323-8 #### THELMA DENNISON ([id number]) [facility] ([facility]) [address] [place] [address] 06427 Urea nitrogen [Mass/Vol] 38 mg/dL High 6-23 [facility] Comment on above: Performed By: #### 2 4323-8 #### THELMA DENNISON ([id number]) [facility] ([facility]) [address] [place] [address] 36709 Albumin BCP dye [Mass/Vol] 3.1 g/dL Low 3.4 - 5.0 g/dL [facility] ALP [Catalytic activity/Vol] 47 U/L 33 - 136 U/L [facility] ALT With P-5'-P [Catalytic activity/Vol] 39 U/L 7 - 45 U/L [facility] Comment on above: Patients treated wit h Sulfasalazine may generate falsely decreased results for ALT. Anion gap [Moles/Vol] 11 mmol/L 10 - 2 0 mmol/L [facility] AST With P-5'-P [Catalytic activity/Vol] 45 U/L High 9 - 39 U/L [facility] Bilirubin [Mass/Vol] 0.5 mg/dL 0.0 - 1 .2 mg/dL [facility] Calcium [Mass/Vol] 11.1 mg/dL High 8.6 - 10. 3 mg/dL [facility] Chloride [Moles/Vol] 108 mmol/L High 98 - 10 7 mmol/L [facility] CO2 [Moles/Vol] 23 mmol/L 21 - 32 mmol/L [facility] Creatinine [Mass/Vol] 1.87 mg/dL High 0.50 - 1.05 mg/dL [facility] GFR/1.73 sq M.predicted among non-blacks MDRD (S/P/Bld) [Vol rate/Area] 27 mL/min/{1.73_m2} Low - PINF [facility] Comment on above: Calculations of marisabel mated GFR are performed using the 2020 CKD-EPI Study Refit equation without the race variable for the IDMS-Traceable creatinine methods. https://jasn.asnjournals.org/content/early//ASN.77638 13500 Glucose [Mass/Vol] 77 mg/dL 74 - 99 mg/dL [facility] Interpretation and review of laboratory results Abnormal [facility] Potassium [Moles/Vol] 3.8 mmol/L 3.5 - 5.3 mmol/L [facility] Protein [Mass/Vol] 5.1 g/dL Low 6.4 - 8.2 g/dL [facility] Sodium [Moles/Vol] 138 mmol/L 136 - 145 mmol/L [facility] Urea nitrogen [Mass/Vol] 38 mg/dL High 6 - 23 mg/dL [facility] Albumin BCP dye [Mass/Vol] 3.3 g/dL Low 3.4-5.0 [facility] Comment on above: Performed By: #### 2 4323-8 #### THELMA DENNISON ([id number]) [facility] ([facility]) [address] [place] [address] ALP [Catalytic activity/Vol] 52 U/L Normal 33-136 [facility] Comment on above: Performed By: #### 2 4323-8 #### THELMA DENNISON ([id number]) [facility] ([facility]) [address] [place] [address] 32284 ALT With P-5'-P [Catalytic activity/Vol] 43 U/L Normal 7-45 [facility] Comment on above: Result Comment: Liz ents treated with Sulfasalazine may generate falsely decreased results for ALT. Performed By: #### 2 4323-8 #### THELMA DENNISON ([id number]) [facility] ([facility]) [address] [place] [address] 45357 Anion gap [Moles/Vol] 10 mmol/L Normal 10-20 [facility] Comment on above: Performed By: #### 2 4323-8 #### THELMA DENNISON ([id number]) [facility] ([facility]) [address] [place] [address] 17829 AST With P-5'-P [Catalytic activity/Vol] 48 U/L High 9-39 [facility] Comment on above: Performed By: #### 2 4323-8 #### THELMA DENNISON ([id number]) [facility] ([facility]) [address] [place] [address] 30686 Bilirubin [Mass/Vol] 0.5 mg/dL Normal 0.0-1.2 [facility] Comment on above: Performed By: #### 2 4323-8 #### THELMA DENNISON ([id number]) [facility] ([facility]) [address] [place] [address] 57559 Calcium [Mass/Vol] 11.5 mg/dL High 8.6-10.3 [facility] Comment on above: Performed By: #### 2 4323-8 #### THELMA DENNISON ([id number]) [facility] ([facility]) [address] [place] [address] 60747 Chloride [Moles/Vol] 106 mmol/L Normal 98-107 [facility] Comment on above: Performed By: #### 2 4323-8 #### THELMA DENNISON ([id number]) [facility] ([facility]) [address] [place] [address] CO2 [Moles/Vol] 25 mmol/L Normal 21-32 [facility] Comment on above: Performed By: #### 2 4323-8 #### THELMA DENNISON ([id number]) [facility] ([facility]) [address] [place] [address] 66555 Creatinine [Mass/Vol] 1.95 mg/dL High 0.50-1.05 [facility] Comment on above: Performed By: #### 2 4323-8 #### THELMA DENNISON ([id number]) [facility] ([facility]) [address] [place] [address] 97181 Glomerular filtration rate/1.73 sq M.predicted 26 mL/min/1.73m*2 Low >60 [facility] Comment on above: Result Comment: Calc ulations of estimated GFR are performed using the 2020 CKD-EPI Study Refit equation without the race variable for the IDMS-Traceable creatinine methods. https://jasn.asnjournals.org/content//ASN.25497 62298 Performed By: #### 2 4323-8 #### THELMA DENNISON ([id number]) [facility] ([facility]) [address] [place] [address] 72696 Glucose [Mass/Vol] 83 mg/dL Normal 74-99 [facility] Comment on above: Performed By: #### 2 4323-8 #### THELMA DENNISON ([id number]) [facility] ([facility]) [address] [place] [address] 75575 Potassium [Moles/Vol] 3.8 mmol/L Normal 3.5-5.3 [facility] Comment on above: Performed By: #### 2 4323-8 #### THELMA DENNISON ([id number]) [facility] ([facility]) [address] [place] [address] 62225 Protein [Mass/Vol] 5.4 g/dL Low 6.4-8.2 [facility] Comment on above: Performed By: #### 2 4323-8 #### THELMA DENNISON ([id number]) [facility] ([facility]) [address] [place] [address] 00933 Sodium [Moles/Vol] 137 mmol/L Normal 136-145 [facility] Comment on above: Performed By: #### 2 4323-8 #### THELMA DENNISON ([id number]) [facility] ([facility]) [address] [place] [address] 90284 Urea nitrogen [Mass/Vol] 37 mg/dL High 6-23 [facility] Comment on above: Performed By: #### 2 4323-8 #### THELMA DENNISON ([id number]) [facility] ([facility]) [address] [place] [address] 83636 Albumin BCP dye [Mass/Vol] 3.3 g/dL Low 3.4 - 5.0 g/dL [facility] ALP [Catalytic activity/Vol] 52 U/L 33 - 136 U/L [facility] ALT With P-5'-P [Catalytic activity/Vol] 43 U/L 7 - 45 U/L [facility] Comment on above: Patients treated wit h Sulfasalazine may generate falsely decreased results for ALT. Anion gap [Moles/Vol] 10 mmol/L 10 - 2 0 mmol/L [facility] AST With P-5'-P [Catalytic activity/Vol] 48 U/L High 9 - 39 U/L [facility] Bilirubin [Mass/Vol] 0.5 mg/dL 0.0 - 1 .2 mg/dL [facility] Calcium [Mass/Vol] 11.5 mg/dL High 8.6 - 10. 3 mg/dL [facility] Chloride [Moles/Vol] 106 mmol/L 98 - 10 7 mmol/L [facility] CO2 [Moles/Vol] 25 mmol/L 21 - 32 mmol/L [facility] Creatinine [Mass/Vol] 1.95 mg/dL High 0.50 - 1.05 mg/dL [facility] GFR/1.73 sq M.predicted among non-blacks MDRD (S/P/Bld) [Vol rate/Area] 26 mL/min/{1.73_m2} Low - PINF [facility] Comment on above: Calculations of marisabel mated GFR are performed using the 2020 CKD-EPI Study Refit equation without the race variable for the IDMS-Traceable creatinine methods. https://jasn.asnjournals.org/content//ASN.01768 04855 Glucose [Mass/Vol] 83 mg/dL 74 - 99 mg/dL [facility] Interpretation and review of laboratory results Abnormal [facility] Potassium [Moles/Vol] 3.8 mmol/L 3.5 - 5.3 mmol/L [facility] Protein [Mass/Vol] 5.4 g/dL Low 6.4 - 8.2 g/dL [facility] Sodium [Moles/Vol] 137 mmol/L 136 - 145 mmol/L [facility] Urea nitrogen [Mass/Vol] 37 mg/dL High 6 - 23 mg/dL [facility] Magnesiumon 05-24-2023 Magnesium [Mass/Vol] 1.95 mg/dL Normal 1.60-2.40 [facility] Comment on above: Performed By: #### 1 9123-9 #### THELMA DENNISON ([id number]) [facility] ([facility]) [address] [place] [address] 34305 Magnesium [Mass/Vol] 1.95 mg/dL 1.60 - 2.40 mg/dL [facility] Magnesium [Mass/Vol] 2.03 mg/dL Normal 1.60-2.40 [facility] Comment on above: Performed By: #### 1 9123-9 #### THELMA DENNISON ([id number]) [facility] ([facility]) [address] [place] [address] 55107 Magnesium [Mass/Vol] 2.03 mg/dL 1.60 - 2.40 mg/dL [facility] Magnesium [Mass/Vol]on 05-23 Interpretation and review of laboratory results Normal [facility] Interpretation and review of laboratory results Normal [facility] No Panel Informationon 05-23 [facility] PT Coag (PPP) [Time]on 05-23 INR Coag (PPP) [Relative time] 2.2 High 0.9-1.1 [facility] Comment on above: Performed By: #### 5 902-2 #### THELMA DENNISON ([id number]) [facility] ([facility] [address] [place] [address] 63092 INR Coag (PPP) [Relative time] 2.2 {INR} High 0.9 - 1.1 [facility] Interpretation and review of laboratory results Abnormal [facility] PT and aPTT panel Coag (PPP) on 05-24-2023 aPTT Coag (PPP) [Time] 36 s Normal 27-38 [facility] Comment on above: Order Comment: The A PTT is no longer used for monitoring Unfractionated Heparin Therapy. For monitoring Heparin Therapy, use the Heparin Assay. Performed By: #### 3 4529-8 #### THELMA DENNISON ([id number]) [facility] ([facility]) [address] [place] [address] 91275 INR Coag (PPP) [Relative time] 2.2 High 0.9-1.1 [facility] Comment on above: Order Comment: The A PTT is no longer used for monitoring Unfractionated Heparin Therapy. For monitoring Heparin Therapy, use the Heparin Assay. Performed By: #### 3 4529-8 #### THELMA DENNISON ([id number]) [facility] ([facility]) [address] [place] [address] 05628 PT Coag (PPP) [Time] 25.0 s High 9.8-12.8 [facility] Comment on above: Order Comment: The A PTT is no longer used for monitoring Unfractionated Heparin Therapy. For monitoring Heparin Therapy, use the Heparin Assay. Performed By: #### 3 4529-8 #### THELMA DENNISON ([id number]) [facility] ([facility]) [address] [place] [address] 68998 aPTT Coag (PPP) [Time] 36 s [facility] INR Coag (PPP) [Relative time] 2.2 {INR} High 0.9 - 1.1 [facility] Interpretation and review of laboratory results Abnormal [facility] PT Coag (PPP) [Time] 25.0 s [facility] The APTT is no longe r used for monitoring Unfractionated Heparin Therapy. For monitoring Heparin Therapy, use the Heparin Assay. [facility] PTH, Intacton 05-24-2023 Parathyrin.intact [Mass/Vol] 11.2 pg/mL Low 18.5 - 88.0 pg/mL [facility] Parathyrin.intacton 05-24-19 Parathyrin.intact [Mass/Vol] 11.2 pg/mL Low 18.5-88.0 [facility] Comment on above: Performed By: #### 2 731-8 #### JENNIFER Mirza ([id number]) [facility] ([facility]) [address] [place] [address] 26281 Parathyrin.intact [Mass/Vol] on 05-24-2023 Interpretation and review of laboratory results Abnormal [facility] Protime-INRon 05-24-2023 PT Coag (PPP) [Time] 25.3 s [facility] SST TOPon 05-24-2023 Extra Tube Hold for add-ons. [facility] Comment on above: Auto resulted. [facility] Absolute lymphocyte countOrd ered By: Ankush Noguera on 05-23-2023 Lymphocytes Auto (Unsp spec) [#/Vol] 1.83 10*3/uL 0.83-4.51 [facility] Automated lymphocyte count a s percentage of total leukocytesOrdered By: Ankush Noguera on 05-23-2023 Lymphocytes/100 WBC Auto (Unsp spec) 19.2 % 19-41 [facility] Basic metabolic 2000 panelon 05-23-2023 Anion gap [Moles/Vol] 16 mmol/L 9 - 18 mmol/L [facility] Calcium [Mass/Vol] 12.6 mg/dL High 8.5 - 10. 2 mg/dL [facility] Chloride [Moles/Vol] 100 mmol/L 97 - 10 5 mmol/L [facility] CO2 [Moles/Vol] 18 mmol/L Low 22 - 30 mmol/L [facility] Creatinine [Mass/Vol] 1.98 mg/dL High 0.58 - 0.96 mg/dL [facility] Estimated Glomerular Filtration Rate 25 mL/min/1.73m Low >=60 mL/min/1.73m [facility] Glucose [Mass/Vol] 110 mg/dL High 74 - 99 mg/dL [facility] Potassium [Moles/Vol] 4.7 mmol/L 3.7 - 5.1 mmol/L [facility] Sodium [Moles/Vol] 134 mmol/L Low 136 - 144 mmol/L [facility] Urea nitrogen [Mass/Vol] 35 mg/dL High 7 - 21 mg/dL [facility] Basophil percentageOrdered B y: Ankush Noguera on 05-23-2023 Basophil percentage 50-100 SEEN /hpf 0-5 [facility] Basophils/100 WBC (Bld) 0.8 % 0-1 [facility] Bilirubin [Mass/Vol] 0.40 mg/dL 0.20-1.00 [facility] Comment on above: For patients on eltr ombopag therapy, use of Dimension [place] TBIL is not recommended. Chloride [Moles/Vol] 105 mmol/L 98-107 [facility] Eosinophils/100 WBC (Bld) 9.7 % 0-5 [facility] Glucose [Mass/Vol] 144 mg/dL 74-106 [facility] Comment on above: Fasting Glucose resu lt greater than or equal to 126 mg/dL suggests DIABETES MELLITUS per A.D.A. criteria. Hemoglobin (Bld) [Mass/Vol] 14.5 g/dL 12.0-15.0 [facility] Monocytes/100 WBC (Bld) 9.7 % 0-10 [facility] Neutrophils (Bld) [#/Vol] 5.7 10*3/uL 2.0-7.7 [facility] Neutrophils/100 WBC (Bld) 59.7 % 47-70 [facility] Potassium [Moles/Vol] 4.0 mmol/L 3.5-5.1 [facility] Protein [Mass/Vol] 5.9 g/dL 6.4-8.2 [facility] Sodium [Moles/Vol] 136 mmol/L 136-145 [facility] WBC (Bld) [#/Vol] 9.5 10*3/uL 4.4-11.0 [facility] Bilirubin Test strip Ql (U)O rdered By: Ankush Noguera on 05-23-2023 Bilirubin Ql (U) Negative Negative [facility] Calcium.ionized [Moles/Vol]o n 05-23-2023 Calcium.ionized (Bld) [Mass/Vol] 1.69 mmol/L High 1.08 - 1.30 mmol/L [facility] Calcium.ionized adjusted to pH 7.4 (Bld) [Moles/Vol] 1.69 mmol/L High 1.08 - 1.30 mmol/L [facility] Determination of erythrocyte mean corpuscular volume (MCV)Ordered By: Ankush Noguera on 05-23-2023 MCV (RBC) [Entitic vol] 85.4 fL 81-99 [facility] Erythrocyte distribution wid th ratioOrdered By: Ankush Noguera on 05-23-2023 Erythrocyte distribution width (RBC) [Ratio] 14.2 % 11.6-14.6 [facility] Erythrocyte distribution wid th standard deviationOrdered By: Ankush Noguera on 05-23-2023 Erythrocyte distribution width (RBC) [Entitic vol] 44.1 fL 35.1-43.9 [facility] Hematocrit Auto (Bld) [Volum e fraction]Ordered By: Ankush Noguera on 05-23-2023 Hematocrit (Bld) [Volume fraction] 43.3 % 37-47 [facility] Immature granulocytes/100 WB C Auto (Bld)Ordered By: Ankush Noguera on 05-23-2023 Immature granulocytes/100 WBC (Bld) 0.900 % 0.0-0.9 [facility] Comment on above: IG% - Immature Granu locytes (promyelocytes, myelocytes and metamyelocytes) > 1% indicates that a LEFT SHIFT is Present. Ketones Test strip Ql (U)Ord ered By: Ankush Noguera on 05-23-2023 Ketones Ql (U) Negative Negative [facility] Laboratory - Chemistry and C hemistry - challengeOrdered By: Ankush Noguera on 05-23-2023 Albumin/Globulin [Mass ratio] 1.0 {ratio} 0.9-2.4 [facility] ALP [Catalytic activity/Vol] 76 U/L 45-117 [facility] ALT [Catalytic activity/Vol] 62 U/L 13-56 [facility] CO2 [Moles/Vol] 23.0 mmol/L 21.0-32.0 [facility] Globulin (S) [Mass/Vol] 3.0 g/dL 2.2-4.2 [facility] Urea nitrogen/Creatinine [Mass ratio] 18.9 mg/mg 10-20 [facility] Laboratory - CoagulationOrde red By: Ankush Noguera on 05-23-2023 INR Coag (Bld) [Relative time] 2.1 {INR} [facility] PT Coag (PPP) [Time] 23.0 s 11.7-14.9 [facility] - Hematology and Cell countsOrdered By: Ankush Noguera on 05-23-2023 MCH (RBC) [Entitic mass] 28.6 pg 27.0-32.0 [facility] MCHC (RBC) [Mass/Vol] 33.5 g/dL 32-36 [facility] Nucleated RBC/100 WBC (Bld) [Ratio] 0 % 0-5 [facility] Platelet mean volume (Bld) [Entitic vol] 10.9 fL 6.2-12.0 [facility] Platelets (Bld) [#/Vol] 271 10*3/uL 150-450 [facility] MAGNESIUM BLDon 05-23-2023 Magnesium [Mass/Vol] 2.3 mg/dL 1.7 - 2 .3 mg/dL [facility] Mucus LM Ql (Urine sed)Order ed By: Ankush Noguera on 05-23-2023 Mucus Ql (Urine sed) 0 SEEN /hpf [facility] Nitrite Test strip Ql (U)Ord ered By: Ankush Noguera on 05-23-2023 Nitrite Ql (U) Negative Negative [facility] No Panel InformationOrdered By: Ankush Noguera on 05-23-2023 Urine RBC 10-25 SEEN /hpf 0-5 [facility] Ionized Calcium 6.22 mg/dL 4.36-5.20 [facility] Estimated Creatinine Clearance Calc 19.14 ml/min [facility] Estimated GFR (MDRD) Amer 30 mL/min >60 [facility] Comment on above: GFR Calc Estimated GFR (MDRD) Non-Af Amer 25 mL/min >60 [facility] Comment on above: Non- GFR Calc Troponin I High Sensitivity 32 pg/mL 3.0-54.0 [facility] Comment on above: Please Note: New Katerina t Units and Gender Specific Reference Ranges. For more information see Policy Stat Procedure [place] High Sensitivity Troponin (TNIH) and attachments. PHOSPHORUS INORGANICon 05-22 Phosphate [Mass/Vol] 4.1 mg/dL 2.7 - 4 .8 mg/dL [facility] Protein Test strip Ql (U)Ord ered By: Ankush Noguera on 05-23-2023 Protein Ql (U) 15 mg/dl Negative [facility] [facility] Auto (Bld) [#/Vol]Ordere d By: Ankush Noguera on 05-23-2023 RBC (Bld) [#/Vol] 5.07 10*6/uL 4.2-5.4 [facility] Serum or plasma calcium scott urement (mass/volume)Ordered By: Ankush Noguera on 05-23-2023 Calcium [Mass/Vol] 11.9 mg/dL 8.5-10.1 [facility] Serum or plasma creatinine m easurement (mass/volume)Ordered By: Ankush Noguera on 05-23-2023 Creatinine [Mass/Vol] 2.06 mg/dL 0.55-1.02 [facility] Comment on above: The validity of the calculated GFR & GFRAA in patients over 70 years has not been determined. Clinical correlation is essential. Serum or plasma urea nitroge n measurement (mass/volume)Ordered By: Ankush Noguera on 05-23-2023 Urea nitrogen [Mass/Vol] 39 mg/dL 7-18 [facility] Squamous epithelial cells de tection in urine sediment by light microscopyOrdered By: Ankush Noguera on 05-23-2023 Epithelial cells.squamous LM Ql (Urine sed) 5-10 SEEN /hpf 5-10 [facility] Thin prep Papanicolaou smear with manual screeningOrdered By: Ankush Noguera on 05-23-2023 Thin prep Papanicolaou smear with manual screening 2.9 g/dL 3.2-5.0 [facility] Thin prep Papanicolaou smear with manual screening 64 U/L 15-37 [facility] Thin prep Papanicolaou smear with manual screening 8 5-15 [facility] UA DIP, URINE (POC)on 2023 BILIRUBIN UA (POCT) Negative Negative [facility] CLARITY UA (POCT) Clear [facility] COLOR UA (POCT) Yellow [facility] GLUCOSE UA (POCT) Negative Negative mg/dL [facility] Hemoglobin Ql (U) Small Abnormal Negative [facility] KETONE UA (POCT) Negative Negative mg/dL [facility] LEUKOCYTES UA (POCT) Small Abnormal Negative [facility] NITRITE UA (POCT) Negative Negative [facility] PH UA (POCT) 5.5 4.5 - 8.0 [facility] Protein Ql (U) Negative Negative mg/dL [facility] SPECIFIC GRAVITY UA (POCT) <=1.005 Abnormal 1.005 - 1.030 [facility] UROBILINOGEN UA (POCT) 0.2 E.U./dL Camelia l E.U./dL [facility] Urine blood detectionOrdered By: Ankush Noguera on 05-23-2023 RBC Ql (U) 25 /ul Negative [facility] Urine clarityOrdered By: Edouard Noguera on 05-23-2023 Clarity (U) Clear Clear [facility] Urine color determinationOrd ered By: Ankush Noguera on 05-23-2023 Color (U) Yellow Yellow [facility] Urine glucose detectionOrder ed By: Ankush Noguera on 05-23-2023 Glucose Ql (U) Normal mg/dl Normal [facility] Urine leukocyte esterase det ection by dipstickOrdered By: Ankush Noguera on 05-23-2023 Leukocyte esterase Test strip Ql (U) 500 /ul Negative [facility] Urine pHOrdered By: Ankush ford on 05-23-2023 pH (U) 6.5 [pH] 5.0 - 8.0 [facility] Urine sediment bacteria coun t by microscopy (number/high power field)Ordered By: Ankush Noguera on 05-23-2023 Bacteria LM.HPF (Urine sed) [#/Area] 0 /[HPF] None Seen [facility] Urine specific gravity measu rementOrdered By: Ankush Noguera on 05-23-2023 Specific gravity (U) [Rel density] 1.010 1.002-1.030 [facility] Urine urobilinogen measureme ntOrdered By: Ankush Noguera on 05-23-2023 Urobilinogen Ql (U) Normal mg/dl Normal [facility] Absolute lymphocyte countOrd ered By: Juan Alberto Mcclendon on 05-15-2023 Lymphocytes Auto (Unsp spec) [#/Vol] 1.74 10*3/uL 0.83-4.51 [facility] Automated lymphocyte count a s percentage of total leukocytesOrdered By: Juan Alberto Mcclendon on 05-15-2023 Lymphocytes/100 WBC Auto (Unsp spec) 15.8 % 19-41 [facility] Basophil percentageOrdered B y: Juan Alberto Mcclendon on 05-15-2023 Basophils/100 WBC (Bld) 0.6 % 0-1 [facility] Chloride [Moles/Vol] 103 mmol/L 98-107 [facility] Eosinophils/100 WBC (Bld) 6.4 % 0-5 [facility] Glucose [Mass/Vol] 103 mg/dL 74-106 [facility] Comment on above: Fasting Glucose resu lt from 100 to 125 mg/dL suggests IMPAIRED HOMEOSTASIS per A.D.A. criteria. Hemoglobin (Bld) [Mass/Vol] 14.4 g/dL 12.0-15.0 [facility] Monocytes/100 WBC (Bld) 10.7 % 0-10 [facility] Neutrophils (Bld) [#/Vol] 7.2 10*3/uL 2.0-7.7 [facility] Neutrophils/100 WBC (Bld) 65.8 % 47-70 [facility] Potassium [Moles/Vol] 3.6 mmol/L 3.5-5.1 [facility] Sodium [Moles/Vol] 134 mmol/L 136-145 [facility] W[facility] ([facility]ld[facility] [#/Vol] 11.0 10*3/uL 4.4-11.0 [facility] Determination of erythrocyte mean corpuscular volume (MCV)Ordered By: Juan Alberto Mcclendon on 05-15-2023 MCV (RBC) [Entitic vol] 88.0 fL 81-99 [facility] Erythrocyte distribution wid th ratioOrdered By: Juan Alberto Mcclendon on 05-15-2023 Erythrocyte distribution width (RBC) [Ratio] 14.3 % 11.6-14.6 [facility] Erythrocyte distribution wid th standard deviationOrdered By: Juan Alberto Mcclendon on 05-15-2023 Erythrocyte distribution width (RBC) [Entitic vol] 45.5 fL 35.1-43.9 [facility] Hematocrit Auto (Bld) [Volum e fraction]Ordered By: Juan Alberto Mcclendon on 05-15-2023 Hematocrit (Bld) [Volume fraction] 44.8 % 37-47 [facility] Immature granulocytes/100 WB C Auto (Bld)Ordered By: Juan Alberto Mcclendon on 05-15-2023 Immature granulocytes/100 WBC (Bld) 0.700 % 0.0-0.9 [facility] Comment on above: IG% - Immature Granu locytes (promyelocytes, myelocytes and metamyelocytes) > 1% indicates that a LEFT SHIFT is Present. Laboratory - Chemistry and C hemistry - challengeOrdered By: Juan Alberto Mcclendon on 05-15-2023 CO2 [Moles/Vol] 22.0 mmol/L 21.0-32.0 [facility] Urea nitrogen/Creatinine [Mass ratio] 17.6 mg/mg 10-20 [facility] Laboratory - Hematology and Cell countsOrdered By: Juan Alberto Mcclendon on 05-15-2023 MCH (RBC) [Entitic mass] 28.3 pg 27.0-32.0 [facility] MCHC (RBC) [Mass/Vol] 32.1 g/dL 32-36 [facility] Nucleated RBC/100 WBC (Bld) [Ratio] 0 % 0-5 [facility] Platelet mean volume (Bld) [Entitic vol] 11.8 fL 6.2-12.0 [facility] Platelets (Bld) [#/Vol] 216 10*3/uL 150-450 [facility] No Panel InformationOrdered By: Juan Alberto Mcclendon on 05-15-2023 Estimated Creatinine Clearance Calc 19.41 ml/min [facility] Estimated GFR (MDRD) Amer 30 mL/min >60 [facility] Comment on above: GFR Calc Estimated GFR (MDRD) Non-Af Amer 25 mL/min >60 [facility] Comment on above: Non- GFR Calc RBC Auto (Bld) [#/Vol]Ordere d By: Juan Alberto Mcclendon on 05-15-2023 RBC (Bld) [#/Vol] 5.09 10*6/uL 4.2-5.4 [facility] Serum or plasma calcium scott urement (mass/volume)Ordered By: Juan Alberto Mcclendon on 05-15-2023 Calcium [Mass/Vol] 11.1 mg/dL 8.5-10.1 [facility] Serum or plasma creatinine m easurement (mass/volume)Ordered By: Juan Alberto Mcclendon on 05-15-2023 Creatinine [Mass/Vol] 2.04 mg/dL 0.55-1.02 [facility] Comment on above: The validity of the calculated GFR & GFRAA in patients over 70 years has not been determined. Clinical correlation is essential. Serum or plasma urea nitroge n measurement (mass/volume)Ordered By: Juan Alberto Mcclendon on 05-15-2023 Urea nitrogen [Mass/Vol] 36 mg/dL 7-18 [facility] Thin prep Papanicolaou smear with manual screeningOrdered By: Juan Alberto Mcclendon on 05-15-2023 Thin prep Papanicolaou smear with manual screening 9 5-15 [facility] Capillary blood internationa l normalized ratio (INR)Ordered By: Basim Velasquez on 2023 INR Coag (BldC) [Relative time] 3.0 [facility] Comment on above: Critical Value > 4.0 Whole blood prothrombin time Ordered By: Basim Velasquez on 2023 PT Coag (Bld) [Time] 32.0 s 11.7-14.9 [facility] No Panel InformationOrdered By: Jennifer Tarango on 04-04-2023 Vitamin D 25-Hydroxy 66.6 ng/mL [facility] Comment on above: Vitamin D 25(OH) Sta tus Range Deficiency <20 ng/mL (50nmol/L) Insufficiency 20 - 30 ng/mL (50 - 75 nmol/L) Sufficiency 30 - 100 ng/mL (75 - 250 nmol/L) Toxicity >100 ng/mL (>250 nmol/L) Serum or plasma calcitriol m easurement (mass/volume)Ordered By: Jennifer Tarango on 04-04-2023 1,25-dihydroxyvitamin D3 [Mass/Vol] 45.7 pg/mL 24.8-81.5 [facility] Comment on above: Performed at: [address] [id number] Director: Yvonne Cook MD, Phone: [phone] Basophil percentageOrdered B y: Basim Velasquez on 03-28-2023 Basophil percentage 2.8 mg/dL 2.5-4.9 [facility] Chloride [Moles/Vol] 106 mmol/L 98-107 [facility] Glucose [Mass/Vol] 94 mg/dL 74-106 [facility] Potassium [Moles/Vol] 4.1 mmol/L 3.5-5.1 [facility] Sodium [Moles/Vol] 137 mmol/L 136-145 [facility] Laboratory - Chemistry and C hemistry - challengeOrdered By: Basim Velasquez on 03-28-2023 CO2 [Moles/Vol] 28.0 mmol/L 21.0-32.0 [facility] Urea nitrogen/Creatinine [Mass ratio] 26.5 mg/mg 10-20 [facility] Laboratory - CoagulationOrde red By: Basim Velasquez on 03-28-2023 INR Coag (Bld) [Relative time] 1.7 {INR} [facility] PT Coag (PPP) [Time] 20.5 s 11.7-14.9 [facility] No Panel InformationOrdered By: Basim Velasquez on 03-28-2023 Estimated GFR (MDRD) Amer 32 mL/min >60 [facility] Comment on above: GFR Calc Estimated GFR (MDRD) Non-Af Amer 26 mL/min >60 [facility] Comment on above: Non- GFR Calc Serum or plasma calcium scott urement (mass/volume)Ordered By: Basim Velasquez on 03-28-2023 Calcium [Mass/Vol] 10.9 mg/dL 8.5-10.1 [facility] Serum or plasma creatinine m easurement (mass/volume)Ordered By: Basim Velasquez on 03-28-2023 Creatinine [Mass/Vol] 1.96 mg/dL 0.55-1.02 [facility] Comment on above: The validity of the calculated GFR & GFRAA in patients over 70 years has not been determined. Clinical correlation is essential. Serum or plasma urea nitroge n measurement (mass/volume)Ordered By: Basim Velasquez on 03-28-2023 Urea nitrogen [Mass/Vol] 52 mg/dL 7-18 [facility] Thin prep Papanicolaou smear with manual screeningOrdered By: Basim Velasquez on 03-28-2023 Thin prep Papanicolaou smear with manual screening 3.5 g/dL 3.2-5.0 [facility] Laboratory - CoagulationOrde red By: Basim Velasquez on 02-24-2023 PT Coag (PPP) [Time] 26.7 s 11.7-14.9 [facility] Whole blood international no rmalized ratio (INR)Ordered By: Basim Velasquez on 02-24-2023 INR Coag (Bld) [Relative time] 2.4 {INR} [facility] Laboratory - CoagulationOrde red By: Basim Velasquez on 02-08-2023 INR Coag (Bld) [Relative time] 3.1 {INR} [facility] Comment on above: Critical Value > 4.0 Whole blood prothrombin time Ordered By: Basim Velasquez on 02-08-2023 PT Coag (Bld) [Time] 33.3 s 11.7-14.9 [facility] Laboratory - CoagulationOrde red By: Basim Velasquez on 12-23-2022 INR Coag (Bld) [Relative time] 2.8 {INR} [facility] Comment on above: Critical Value > 4.0 Whole blood prothrombin time Ordered By: Basim Velasquez on 12-23-2022 PT Coag (Bld) [Time] 30.6 s 11.7-14.9 [facility] XR FOOT GENERAL 3V AP/LAT/OB L RIGHTon [facility]-19-[facility] Basophil percentageOrdered B y: Basim Velasquez on 12-08-2022 Basophil percentage 2.5 mg/dL 2.5-4.9 [facility] Chloride [Moles/Vol] 107 mmol/L 98-107 [facility] Glucose [Mass/Vol] 185 mg/dL 74-106 [facility] Comment on above: Fasting Glucose resu lt greater than or equal to 126 mg/dL suggests DIABETES MELLITUS per A.D.A. criteria. Potassium [Moles/Vol] 4.3 mmol/L 3.5-5.1 [facility] Sodium [Moles/Vol] 140 mmol/L 136-145 [facility] INR in Blood by Coagulation assayOrdered By: Basim Velasquez on 12-08-2022 INR Coag (Bld) [Relative time] 3.1 {INR} [facility] Laboratory - Chemistry and C hemistry - challengeOrdered By: Basim Velasquez on 12-08-2022 CO2 [Moles/Vol] 28.0 mmol/L 21.0-32.0 [facility] Urea nitrogen/Creatinine [Mass ratio] 21.9 mg/mg 12-09 [facility] Laboratory - CoagulationOrde red By: Basim Velasquez on 12-08-2022 PT Coag (PPP) [Time] 32.0 s 11.7-14.9 [facility] No Panel InformationOrdered By: Basim Velasquez on 12-08-2022 Estimated GFR (MDRD) Amer 34 mL/min >60 [facility] Comment on above: GFR Calc Estimated GFR (MDRD) Non-Af Amer 28 mL/min >60 [facility] Comment on above: Non- GFR Calc Serum or plasma albumin scott urement (mass/volume)Ordered By: Basim Velasquez on 12-08-2022 Albumin [Mass/Vol] 3.5 g/dL 3.2-5.0 [facility] Serum or plasma calcium scott urement (mass/volume)Ordered By: Basim Velasquez on 12-08-2022 Calcium [Mass/Vol] 9.4 mg/dL 8.5-10.1 [facility] Serum or plasma creatinine m easurement (mass/volume)Ordered By: Basim Velasquez on 12-08-2022 Creatinine [Mass/Vol] 1.83 mg/dL 0.55-1.02 [facility] Comment on above: The validity of the calculated GFR & GFRAA in patients over 70 years has not been determined. Clinical correlation is essential. Serum or plasma urea nitroge n measurement (mass/volume)Ordered By: Basim Velasquez on 12-08-2022 Urea nitrogen [Mass/Vol] 40 mg/dL 7-18 [facility] XR FOOT GENERAL 3V AP/LAT/OB L RIGHTon 12-01-2022 [facility] Basophil percentageOrdered B y: Torsten Vann on 11-24-2022 Bilirubin [Mass/Vol] 0.60 mg/dL 0.20-1.00 [facility] Comment on above: For patients on eltr ombopag therapy, use of Dimension [place] TBIL is not recommended. Protein [Mass/Vol] 7.2 g/dL 6.4-8.2 [facility] Laboratory - Chemistry and C hemistry - challengeOrdered By: Torsten Vann on 11-24-2022 ALP [Catalytic activity/Vol] 103 U/L 45-117 [facility] ALT [Catalytic activity/Vol] 38 U/L 13-56 [facility] Globulin (S) [Mass/Vol] 3.4 g/dL 2.2-4.2 [facility] No Panel InformationOrdered By: Torsten Vann on 11-24-2022 Thyroid Stimulating Hormone (TSH) 0.42 uIU/mL 0.358-3.74 [facility] Vitamin D 25-Hydroxy 49.5 ng/mL [facility] Comment on above: Vitamin D 25(OH) Sta tus Range Deficiency <20 ng/mL (50nmol/L) Insufficiency 20 - 30 ng/mL (50 - 75 nmol/L) Sufficiency 30 - 100 ng/mL (75 - 250 nmol/L) Toxicity >100 ng/mL (>250 nmol/L) Serum or plasma albumin/glob ulin mass ratioOrdered By: Torsten Vann on 11-24-2022 Albumin/Globulin [Mass ratio] 1.1 {ratio} 0.9-2.4 [facility] Thin prep Papanicolaou smear with manual screeningOrdered By: Torsten Vann on 11-24-2022 Thin prep Papanicolaou smear with manual screening 28 U/L 15-37 [facility] Thin prep Papanicolaou smear with manual screening 5 5-15 [facility] XR FOOT GENERAL 3V AP/LAT/OB L RIGHTon 11-08-2022 [facility] XR Foot - right AP and Later al and obliqueon 11-08-2022 IMPRESSION: Acute nondisplaced fracture of the proximal fifth metatarsal shaft. Entry Level Web Developer: [email or web address] Transcribe Date/Time: Nov 08 2022 11:28A Dictated by : ELIZABETH GEORGE MD This examination was interpreted and the report reviewed and electronically signed by: ELIZABETH GEORGE MD on Nov 08 2022 11:29AM [facility] DIVISION OF RADIOLOGY * * *Final Report* [...] of the vasculature. DIVISION OF RADIOLOGY Provider, [facility] - 11/08/2022 * * *Final Report* * [...] fracture of the proximal fifth metatarsal shaft. Entry Level Web Developer: PSCB Transcribe Date/Time: Nov 08 2022 11:28A Dictated by : ELIZABETH GEORGE MD This examination was interpreted and the report reviewed and electronically signed by: ELIZABETH GEORGE MD on Nov 08 2022 11:29AM EST [facility] Radiology Study observation (narrative) [facility] XR Foot - right AP and Later al and obliqueOrdered By: [facility] Provider on 11-08-2022 [facility] XR HIP BILATERAL 5V PEL/AP/L AT EACH HIPon 10-28-2022 IMPRESSION: Mild hip degenerative change bilaterally. Entry Level Web Developer: [email or web address] Transcribe Date/Time: Oct 28 2022 9:25A [...] erosions. DIVISION OF RADIOLOGY Provider, Camilla Bur[facility] - 10/28/2022 * * *Final Report* [...] IMPRESSION IMPRESSION: Mild hip degenerative change bilaterally. Entry Level Web Developer: PSC[employer] Transcribe Date/Time: Oct 28 2022 9:25A Dictated by : JAYME RIDER MD This examination was interpreted and the report reviewed and electronically signed by: JAYME RIDER MD on Oct 28 2022 9:26AM EST [facility] XR HIP BILATERAL 5V PEL/AP/L AT EACH HIPOrdered By: [facility] Provider on 10-28-2022 [facility] Laboratory - CoagulationOrde red By: Basim Velasquez on 10-26-2022 INR Coag (Bld) [Relative time] 2.4 {INR} [facility] Comment on above: Critical Value > 4.0 Whole blood prothrombin time Ordered By: Basim Velasquez on 10-26-2022 PT Coag (Bld) [Time] 25.8 s 11.7-14.9 [facility] XR HIP BILATERAL 5V PEL/AP/L AT EACH HIPon 10-26-2022 Radiology Study observation (narrative) [facility] Laboratory - CoagulationOrde red By: Basim Velasquez on 10-11-2022 INR Coag (Bld) [Relative time] 3.2 {INR} [facility] Comment on above: Critical Value > 4.0 Whole blood prothrombin time Ordered By: Basim Velasquez on 10-11-2022 PT Coag (Bld) [Time] 34.6 s 11.7-14.9 [facility] Laboratory - CoagulationOrde red By: Basim Velasquez on 09-12-2022 INR Coag (Bld) [Relative time] 2.4 {INR} [facility] Comment on above: Critical Value > 4.0 Whole blood prothrombin time Ordered By: Basim Velasquez on 09-12-2022 PT Coag (Bld) [Time] 25.7 s 11.7-14.9 [facility] INR in Blood by Coagulation assayOrdered By: Basim Velasquez on 08-11-2022 INR Coag (Bld) [Relative time] 2.6 {INR} [facility] Laboratory - CoagulationOrde red By: Basim Velasquez on 08-11-2022 PT Coag (PPP) [Time] 28.3 s 11.7-14.9 [facility] Basophil percentageOrdered B y: Jennifer Tarango on 07-26-2022 Basophil percentage 2.6 mg/dL 2.5-4.9 [facility] Chloride [Moles/Vol] 107 mmol/L 98-107 [facility] Glucose [Mass/Vol] 80 mg/dL 74-106 [facility] Potassium [Moles/Vol] 3.9 mmol/L 3.5-5.1 [facility] Sodium [Moles/Vol] 139 mmol/L 136-145 [facility] Laboratory - Chemistry and C hemistry - challengeOrdered By: Jennifer Tarango on 07-26-2022 CO2 [Moles/Vol] 23.0 mmol/L 21.0-32.0 [facility] Urea nitrogen/Creatinine [Mass ratio] 21.3 mg/mg 10-20 [facility] No Panel InformationOrdered By: Jennifer Tarango on 07-26-2022 Estimated GFR (MDRD) Amer 34 mL/min >60 [facility] Comment on above: GFR Calc Estimated GFR (MDRD) Non-Af Amer 28 mL/min >60 [facility] Comment on above: Non- GFR Calc Serum or plasma albumin scott urement (mass/volume)Ordered By: Jennifer Tarango on 07-26-2022 Albumin [Mass/Vol] 3.8 g/dL 3.2-5.0 [facility] Serum or plasma calcium scott urement (mass/volume)Ordered By: Jennifer Tarango on 07-26-2022 Calcium [Mass/Vol] 9.3 mg/dL 8.5-10.1 [facility] Serum or plasma creatinine m easurement (mass/volume)Ordered By: Jennifer Tarango on 07-26-2022 Creatinine [Mass/Vol] 1.83 mg/dL 0.55-1.02 [facility] Comment on above: The validity of the calculated GFR & GFRAA in patients over 70 years has not been determined. Clinical correlation is essential. Serum or plasma urea nitroge n measurement (mass/volume)Ordered By: Jennifer Tarango on 07-26-2022 Urea nitrogen [Mass/Vol] 39 mg/dL 09-06 [facility] Laboratory - CoagulationOrde red By: Basim Velasquez on 07-08-2022 INR Coag (Bld) [Relative time] 2.1 {INR} [facility] Comment on above: Critical Value > 4.0 Whole blood prothrombin time Ordered By: Basim Velasquez on 07-08-2022 PT Coag (Bld) [Time] 23.5 s 11.7-14.9 [facility] Basophil percentageOrdered B y: Dr. Tarango on 06-07-2022 Basophil percentage 1.5 mg/dL 2.5-4.9 [facility] Chloride [Moles/Vol] 109 mmol/L 98-107 [facility] Glucose [Mass/Vol] 82 mg/dL 74-106 [facility] Potassium [Moles/Vol] 4.1 mmol/L 3.5-5.1 [facility] Sodium [Moles/Vol] 136 mmol/L 136-145 [facility] Laboratory - Chemistry and C hemistry - challengeOrdered By: Dr. Tarango on 06-07-2022 CO2 [Moles/Vol] 18.0 mmol/L 21.0-32.0 [facility] Urea nitrogen/Creatinine [Mass ratio] 16.1 mg/mg 10- [facility] No Panel InformationOrdered By: Dr. Tarango on 06-07-2022 Estimated GFR (MDRD) Amer 40 mL/min >60 [facility] Comment on above: GFR Calc Estimated GFR (MDRD) Non-Af Amer 33 mL/min >60 [facility] Comment on above: Non- GFR Calc Serum or plasma albumin scott urement (mass/volume)Ordered By: Dr. Tarango on 06-07-2022 Albumin [Mass/Vol] 3.7 g/dL 3.2-5.0 [facility] Serum or plasma calcium scott urement (mass/volume)Ordered By: Dr. Tarango on 06-07-2022 Calcium [Mass/Vol] 8.7 mg/dL 8.5-10.1 [facility] Serum or plasma creatinine m easurement (mass/volume)Ordered By: Dr. Tarango on 06-07-2022 Creatinine [Mass/Vol] 1.61 mg/dL 0.55-1.02 [facility] Comment on above: The validity of the calculated GFR & GFRAA in patients over 70 years has not been determined. Clinical correlation is essential. Serum or plasma urea nitroge n measurement (mass/volume)Ordered By: Dr. Tarango on 06-07-2022 Urea nitrogen [Mass/Vol] 26 mg/dL -18 [facility] Basophil percentageOrdered B y: Dr. Tarango on 05-31-2022 Basophil percentage 2.9 mg/dL 2.5-4.9 [facility] Chloride [Moles/Vol] 109 mmol/L 98-107 [facility] Glucose [Mass/Vol] 98 mg/dL 74-106 [facility] Potassium [Moles/Vol] 3.9 mmol/L 3.5-5.1 [facility] Comment on above: Slight Hemolysis, Re sult may be falsely increased. Sodium [Moles/Vol] 139 mmol/L 136-145 [facility] Laboratory - Chemistry and C hemistry - challengeOrdered By: Dr. Tarango on 05-31-2022 CO2 [Moles/Vol] 24.0 mmol/L 21.0-32.0 [facility] Urea nitrogen/Creatinine [Mass ratio] 14.5 mg/mg 10-20 [facility] No Panel InformationOrdered By: Dr. Tarango on 05-31-2022 Estimated GFR (MDRD) Amer 28 mL/min >60 [facility] Comment on above: GFR Calc Estimated GFR (MDRD) Non-Af Amer 23 mL/min >60 [facility] Comment on above: Non- GFR Calc Serum or plasma albumin scott urement (mass/volume)Ordered By: Dr. Tarango on 05-31-2022 Albumin [Mass/Vol] 3.5 g/dL 3.2-5.0 [facility] Serum or plasma calcium scott urement (mass/volume)Ordered By: Dr. Tarango on 05-31-2022 Calcium [Mass/Vol] 9.2 mg/dL 8.5-10.1 [facility] Serum or plasma creatinine m easurement (mass/volume)Ordered By: Dr. Tarango on 05-31-2022 Creatinine [Mass/Vol] 2.20 mg/dL 0.55-1.02 [facility] Comment on above: The validity of the calculated GFR & GFRAA in patients over 70 years has not been determined. Clinical correlation is essential. Serum or plasma urea nitroge n measurement (mass/volume)Ordered By: Dr. Tarango on 05-31-2022 Urea nitrogen [Mass/Vol] 32 mg/dL 7 [facility] Laboratory - CoagulationOrde red By: Dr. Marte on 05-09-2022 INR Coag (Bld) [Relative time] 2.4 {INR} [facility] Comment on above: Critical Value > 4.0 Whole blood prothrombin time Ordered By: Dr. Marte on 05-09-2022 PT Coag (Bld) [Time] 25.9 s 11.7-14.9 [facility] Laboratory - CoagulationOrde red By: Dr. Marte on 03-25-2022 INR Coag (Bld) [Relative time] 2.4 {INR} [facility] Comment on above: Critical Value > 4.0 No Panel Informationon 03-25 INR International Normalized Ratio 2.4 [facility] Whole blood prothrombin time Ordered By: Dr. Marte on 03-25-2022 PT Coag (Bld) [Time] 28.3 s 11.7-14.9 [facility] Laboratory - CoagulationOrde red By: Dr. Marte on 03-10-2022 INR Coag (Bld) [Relative time] 3.3 {INR} [facility] Comment on above: Critical Value > 4.0 Whole blood prothrombin time Ordered By: Dr. Marte on 03-10-2022 PT Coag (Bld) [Time] 37.6 s 11.7-14.9 [facility] Laboratory - CoagulationOrde red By: Dr. Marte on 02-15-2022 INR Coag (Bld) [Relative time] 1.0 {INR} [facility] Comment on above: Critical Value > 4.0 Whole blood prothrombin time Ordered By: Dr. Marte on 02-15-2022 PT Coag (Bld) [Time] 13.0 s 11.7-14.9 [facility] Laboratory - Coagulationon 1 03-30-2021 INR Coag (Bld) [Relative time] 1.7 {INR} [facility] Work Phone: Comment on above: Critical Value > 4.0 Whole blood prothrombin time on 01-27-2022 PT Coag (Bld) [Time] 20.8 s 11.7-14.9 [facility] Work Phone: Basophil percentageOrdered B y: Basim Velasquez on 01-25-2022 Chloride [Moles/Vol] 105 mmol/L 98-107 [facility] Glucose [Mass/Vol] 104 mg/dL 74-106 [facility] Comment on above: Fasting Glucose resu lt from 100 to 125 mg/dL suggests IMPAIRED HOMEOSTASIS per A.D.A. criteria. Potassium [Moles/Vol] 4.1 mmol/L 3.5-5.1 [facility] Sodium [Moles/Vol] 138 mmol/L 136-145 [facility] INR in Blood by Coagulation assayOrdered By: Dr. Marte on 01-25-2022 INR Coag (Bld) [Relative time] 11.9 {INR} [facility] Comment on above: ACRITICAL VALUE VERI FIED. CALLED TO RONNIE HAWKINS ([facility])01/25/22 1337 Omar BabcockRESULTS READ BACK BY SAME. Laboratory - Chemistry and C hemistry - challengeOrdered By: Basim Velasquez on 01-25-2022 CO2 [Moles/Vol] 26.0 mmol/L 21.0-32.0 [facility] Urea nitrogen/Creatinine [Mass ratio] 15.2 mg/mg 10-20 [facility] Laboratory - CoagulationOrde red By: Dr. Marte on 01-25-2022 PT Coag (PPP) [Time] 92.3 s 11.7-14.9 [facility] No Panel InformationOrdered By: Basim Velasquez on 01-25-2022 Estimated GFR (MDRD) Amer 34 mL/min >60 [facility] Comment on above: GFR Calc Estimated GFR (MDRD) Non-Af Amer 28 mL/min >60 [facility] Comment on above: Non- GFR Calc No Panel InformationOrdered By: Dr. Vann on 01-25-2022 Vitamin D 25-Hydroxy 39.0 ng/mL [facility] Comment on above: Vitamin D 25(OH) Sta tus Range Deficiency <20 ng/mL (50nmol/L) Insufficiency 20 - 30 ng/mL (50 - 75 nmol/L) Sufficiency 30 - 100 ng/mL (75 - 250 nmol/L) Toxicity >100 ng/mL (>250 nmol/L) Serum or plasma calcium scott urement (mass/volume)Ordered By: Basim Vleasquez on 01-25-2022 Calcium [Mass/Vol] 9.3 mg/dL 8.5-10.1 [facility] Serum or plasma creatinine m easurement (mass/volume)Ordered By: Basim Velasquez on 01-25-2022 Creatinine [Mass/Vol] 1.84 mg/dL 0.55-1.02 [facility] Comment on above: The validity of the calculated GFR & GFRAA in patients over 70 years has not been determined. Clinical correlation is essential. Serum or plasma urea nitroge n measurement (mass/volume)Ordered By: Basim Velasquez on 01-25-2022 Urea nitrogen [Mass/Vol] 28 mg/dL 7- [facility] Thin prep Papanicolaou smear with manual screeningOrdered By: Basim Velasquez on 01-25-2022 Thin prep Papanicolaou smear with manual screening 7 - [facility] Laboratory - CoagulationOrde red By: Dr. Marte on 12-28-2021 INR Coag (Bld) [Relative time] 2.3 {INR} [facility] Comment on above: Critical Value > 4.0 Whole blood prothrombin time Ordered By: Dr. Marte on 12-28-2021 PT Coag (Bld) [Time] 26.4 s 11.7-14.9 [facility] TAE SCREENINGon 12-08-2021 [facility] Culture, urineOrdered By: Dr Alaina Tarango on 11-26-2021 Bacteria identified Cx Nom (U) Escherichia coli [facility] Basophil percentageOrdered B y: Dr. Tarango on 11-24-2021 Basophil percentage 2.3 mg/dL 2.5-4.9 [facility] Chloride [Moles/Vol] 111 mmol/L 98-107 [facility] Glucose [Mass/Vol] 80 mg/dL 74-106 [facility] Potassium [Moles/Vol] 4.5 mmol/L 3.5-5.1 [facility] Sodium [Moles/Vol] 141 mmol/L 136-145 [facility] Laboratory - Chemistry and C hemistry - challengeOrdered By: Dr. Tarango on 11-24-2021 CO2 [Moles/Vol] 22.0 mmol/L 21.0-32.0 [facility] Urea nitrogen/Creatinine [Mass ratio] 18.7 mg/mg 12-09 [facility] No Panel InformationOrdered By: Dr. Tarango on 11-24-2021 Estimated GFR (MDRD) Amer 42 mL/min >60 [facility] Comment on above: GFR Calc Estimated GFR (MDRD) Non-Af Amer 34 mL/min >60 [facility] Comment on above: Non- GFR Calc Serum or plasma albumin scott urement (mass/volume)Ordered By: Dr. Tarango on 11-24-2021 Albumin [Mass/Vol] 3.4 g/dL 3.2-5.0 [facility] Serum or plasma calcium scott urement (mass/volume)Ordered By: Dr. Tarango on 11-24-2021 Calcium [Mass/Vol] 9.3 mg/dL 8.5-10.1 [facility] Serum or plasma creatinine m easurement (mass/volume)Ordered By: Dr. Tarango on 11-24-2021 Creatinine [Mass/Vol] 1.55 mg/dL 0.55-1.02 [facility] Comment on above: The validity of the calculated GFR & GFRAA in patients over 70 years has not been determined. Clinical correlation is essential. Serum or plasma urea nitroge n measurement (mass/volume)Ordered By: Dr. Tarango on 11-24-2021 Urea nitrogen [Mass/Vol] 29 mg/dL 7-18 [facility] Absolute lymphocyte counton 11-18-2021 Lymphocytes Auto (Unsp spec) [#/Vol] 1.02 10*3/uL 0.83-4.51 [facility] Work Phone: Activated partial thrombopla stin time (aPTT) in platelet poor plasma by coagulation aon 11-18-2021 aPTT Coag (PPP) [Time] 80.0 s 24.1-36.2 [facility] Work Phone: Basophil percentageon 2021 Basophils/100 WBC (Bld) 0.2 % 0-1 [facility] Work Phone: Chloride [Moles/Vol] 113 mmol/L 98-107 [facility] Work Phone: Eosinophils/100 WBC (Bld) 0.0 % 0-5 [facility] Work Phone: Glucose [Mass/Vol] 157 mg/dL 74-106 [facility] Work Phone: [phone] Comment on above: Fasting Glucose resu lt greater than or equal to 126 mg/dL suggests DIABETES MELLITUS per A.D.A. criteria. Neutrophils (Bld) [#/Vol] 8.5 10*3/uL 2.0-7.7 [facility] Work Phone: Neutrophils/100 WBC (Bld) 82.3 % 47-70 [facility] Work Phone: Potassium [Moles/Vol] 4.0 mmol/L 3.5-5.1 [facility] Work Phone: Sodium [Moles/Vol] 142 mmol/L 136-145 [facility] Work Phone: WBC (Bld) [#/Vol] 10.3 10*3/uL 4.4-11.0 [facility] Work Phone: [phone] Blood erythrocytes count (nu mber/volume)on 11-18-2021 RBC (Bld) [#/Vol] 4.15 10*6/uL 4.2-5.4 [facility] Work Phone: Blood hemoglobin measurement (mass/volume)on 11-18-2021 Hemoglobin (Bld) [Mass/Vol] 12.4 g/dL 12.0-15.0 [facility] Work Phone: Blood lymphocytes/100 leukoc yteson 11-18-2021 Lymphocytes/100 WBC (Bld) 9.9 % 19-41 [facility] Work Phone: Blood monocytes/100 leukocyt eson 11-18-2021 Monocytes/100 WBC (Bld) 7.2 % 0-10 [facility] Work Phone: Blood platelet mean volumeon 11-18-2021 Platelet mean volume (Bld) [Entitic vol] 11.6 fL 6.2-12.0 [facility] Work Phone: Determination of erythrocyte mean corpuscular volume (MCV)on 11-18-2021 MCV (RBC) [Entitic vol] 90.6 fL 81-99 [facility] Work Phone: Hematocrit Auto (Bld) [Volum e fraction]on 11-18-2021 Hematocrit (Bld) [Volume fraction] 37.6 % 37-47 [facility] Work Phone: INR in Blood by Coagulation assayon 11-18-2021 INR Coag (Bld) [Relative time] 2.2 {INR} [facility] Work Phone: Laboratory - Chemistry and C hemistry - challengeon 11-18-2021 CO2 [Moles/Vol] 18.0 mmol/L 21.0-32.0 [facility] Work Phone: Urea nitrogen/Creatinine [Mass ratio] 26.5 mg/mg 10-20 [facility] Work Phone: Laboratory - Coagulationon 0 11-18-2021 PT Coag (PPP) [Time] 24.0 s 11.7-14.9 [facility] Work Phone: Laboratory - Hematology and Cell countson 11-18-2021 Erythrocyte distribution width (RBC) [Entitic vol] 48.8 fL 35.1-43.9 [facility] Work Phone: Erythrocyte distribution width (RBC) [Ratio] 14.6 % 11.6-14.6 [facility] Work Phone: Immature granulocytes/100 WBC (Bld) 0.400 % 0.0-0.9 [facility] Work Phone: Comment on above: IG% - Immature Granu locytes (promyelocytes, myelocytes and metamyelocytes) > 1% indicates that a LEFT SHIFT is Present. MCH (RBC) [Entitic mass] 29.9 pg 27.0-32.0 [facility] Work Phone: Nucleated RBC/100 WBC (Bld) [Ratio] 0 % 0-5 [facility] Work Phone: MCHC Auto (RBC) [Mass/Vol]on 11-18-2021 MCHC (RBC) [Mass/Vol] 33.0 g/dL 32-36 [facility] Work Phone: No Panel Informationon 11-18 Estimated Creatinine Clearance Calc 22.09 ml/min [facility] Work Phone: Estimated GFR (MDRD) Amer 38 mL/min >60 [facility] Work Phone: Comment on above: GFR Calc Estimated GFR (MDRD) Non-Af Amer 32 mL/min >60 [facility] Work Phone: Comment on above: Non- GFR Calc Platelets bldon 11-18-2021 Platelets (Bld) [#/Vol] 190 10*3/uL 150-450 [facility] Work Phone: Serum or plasma calcium scott urement (mass/volume)on 11-18-2021 Calcium [Mass/Vol] 7.9 mg/dL 8.5-10.1 [facility] Work Phone: Serum or plasma creatinine m easurement (mass/volume)on 11-18-2021 Creatinine [Mass/Vol] 1.66 mg/dL 0.55-1.02 [facility] Work Phone: Comment on above: The validity of the calculated GFR & GFRAA in patients over 70 years has not been determined. Clinical correlation is essential. Serum or plasma urea nitroge n measurement (mass/volume)on 11-18-2021 Urea nitrogen [Mass/Vol] 44 mg/dL 7-18 [facility] Work Phone: Thin prep Papanicolaou smear with manual screeningon 11-18-2021 Thin prep Papanicolaou smear with manual screening 11 5-15 [facility] Work Phone: Basophil percentageon 2021 Basophil percentage >100 SEEN /hpf 0-5 [facility] Work Phone: Lactate [Moles/Vol] 1.0 mmol/L 0.4-2.0 [facility] Work Phone: Bilirubin Test strip Ql (U)o n 11-17-2021 Bilirubin Ql (U) Negative Negative [facility] Work Phone: Ketones Test strip Ql (U)on 11-17-2021 Ketones Ql (U) 15 mg/dl Negative [facility] Work Phone: Mucus LM Ql (Urine sed)on Mucus Ql (Urine sed) 0 SEEN /hpf [facility] Work Phone: Nitrite Test strip Ql (U)on 11-17-2021 Nitrite Ql (U) Negative Negative [facility] Work Phone: No Panel Informationon 11-17 Troponin I High Sensitivity 482 pg/mL 3.0-54.0 [facility] Work Phone: Comment on above: Critical Result(s) C alled at: 10:36:40 11/17/2021 by: Jarett Burk RN (ICU). Results read back by same. Please Note: New Test Units and Gender Specific Reference Ranges. For more information see Policy Stat Procedure [place] High Sensitivity Troponin (TNIH) and attachments. Protein Test strip Ql (U)on 11-17-2021 Protein Ql (U) 15 mg/dl Negative [facility] Work Phone: Squamous epithelial cells de tection in urine sediment by light microscopyon 11-17-2021 Epithelial cells.squamous LM Ql (Urine sed) 0-5 SEEN /hpf 5-10 [facility] Work Phone: Urine blood detectionon 10-22 RBC Ql (U) 10 /ul Negative [facility] Work Phone: RBC Ql (U) 0-5 SEEN /hpf 0-5 [facility] Work Phone: Urine clarityon 11-17-2021 Clarity (U) Sl. Cloudy Clear [facility] Work Phone: Urine color determinationon 11-17-2021 Color (U) Yellow Yellow [facility] Work Phone: Urine glucose detectionon Glucose Ql (U) Normal mg/dl Normal [facility] Work Phone: Urine leukocyte esterase det ection by dipstickon 11-17-2021 Leukocyte esterase Test strip Ql (U) 500 /ul Negative [facility] Work Phone: Urine pHon 11-17-2021 pH (U) 5.0 [pH] 5.0 - 8.0 [facility] Work Phone: Urine sediment bacteria coun t by microscopy (number/high power field)on 11-17-2021 Bacteria LM.HPF (Urine sed) [#/Area] RARE /hpf None Seen [facility] Work Phone: Urine specific gravity measu rementon 11-17-2021 Specific gravity (U) [Rel density] 1.015 1.002-1.030 [facility] Work Phone: Urobilinogen Auto test strip Ql (U)on 11-17-2021 Urobilinogen Ql (U) Normal mg/dl Normal [facility] Work Phone: Absolute lymphocyte counton 11-16-2021 Lymphocytes Auto (Unsp spec) [#/Vol] 3.63 10*3/uL 0.83-4.51 [facility] Work Phone: Basophil percentageon 2021 Basophils/100 WBC (Bld) 0.9 % 0-1 [facility] Work Phone: Bilirubin [Mass/Vol] 1.00 mg/dL 0.20-1.00 [facility] Work Phone: Comment on above: For patients on eltr ombopag therapy, use of Dimension [place] TBIL is not recommended. Chloride [Moles/Vol] 107 mmol/L 98-107 [facility] Work Phone: Eosinophils/100 WBC (Bld) 2.2 % 0-5 [facility] Work Phone: Glucose [Mass/Vol] 94 mg/dL 74-106 [facility] Work Phone: Neutrophils (Bld) [#/Vol] 6.3 10*3/uL 2.0-7.7 [facility] Work Phone: Neutrophils/100 WBC (Bld) 51.5 % 47-70 [facility] Work Phone: Potassium [Moles/Vol] 4.6 mmol/L 3.5-5.1 [facility] Work Phone: Protein [Mass/Vol] 6.4 g/dL 6.4-8.2 [facility] Work Phone: Sodium [Moles/Vol] 140 mmol/L 136-145 [facility] Work Phone: WBC (Bld) [#/Vol] 12.3 10*3/uL 4.4-11.0 [facility] Work Phone: Blood erythrocytes count (nu mber/volume)on 11-16-2021 RBC (Bld) [#/Vol] 5.36 10*6/uL 4.2-5.4 [facility] Work Phone: Blood hemoglobin measurement (mass/volume)on 11-16-2021 Hemoglobin (Bld) [Mass/Vol] 16.4 g/dL 12.0-15.0 [facility] Work Phone: Blood lymphocytes/100 leukoc yteson 11-16-2021 Lymphocytes/100 WBC (Bld) 29.6 % 19-41 [facility] Work Phone: Blood manual differential co mment interpretation (narrative result)on 11-16-2021 Manual differential comment Rafael (Bld) [Interp] SEE COMMENT [facility] Work Phone: Comment on above: MONOCYTOSIS NOTED Blood monocytes/100 leukocyt eson 11-16-2021 Monocytes/100 WBC (Bld) 14.8 % 0-10 [facility] Work Phone: Blood platelet adequacy dete ction by light microscopyon 11-16-2021 Platelets LM Ql (Bld) ADEQUATE ADEQ [facility] Work Phone: Blood platelet mean volumeon 11-16-2021 Platelet mean volume (Bld) [Entitic vol] 11.8 fL 6.2-12.0 [facility] Work Phone: Determination of erythrocyte mean corpuscular volume (MCV)on 11-16-2021 MCV (RBC) [Entitic vol] 92.7 fL 81-99 [facility] Work Phone: Hematocrit Auto (Bld) [Volum e fraction]on 11-16-2021 Hematocrit (Bld) [Volume fraction] 49.7 % 37-47 [facility] Work Phone: INR in Blood by Coagulation assayon 11-16-2021 INR Coag (Bld) [Relative time] 1.5 {INR} [facility] Work Phone: Laboratory - Chemistry and C hemistry - challengeon 11-16-2021 ALP [Catalytic activity/Vol] 89 U/L 45-117 [facility] Work Phone: ALT [Catalytic activity/Vol] 25 U/L 13-56 [facility] Work Phone: CO2 [Moles/Vol] 23.0 mmol/L 21.0-32.0 [facility] Work Phone: Globulin (S) [Mass/Vol] 3.3 g/dL 2.2-4.2 [facility] Work Phone: Urea nitrogen/Creatinine [Mass ratio] 14.1 mg/mg 10-20 [facility] Work Phone: Laboratory - Coagulationon 0 11-16-2021 PT Coag (PPP) [Time] 17.8 s 11.7-14.9 [facility] Work Phone: Laboratory - Hematology and Cell countson 11-16-2021 Anisocytosis Ql (Bld) RARE [facility] Work Phone: Erythrocyte distribution width (RBC) [Entitic vol] 51.6 fL 35.1-43.9 [facility] Work Phone: [phone] Erythrocyte distribution width (RBC) [Ratio] 15.1 % 11.6-14.6 [facility] Work Phone: [phone] Immature granulocytes/100 WBC (Bld) 1.000 % 0.0-0.9 [facility] Work Phone: [phone] Comment on above: IG% - Immature Granu locytes (promyelocytes, myelocytes and metamyelocytes) > 1% indicates that a LEFT SHIFT is Present. MCH (RBC) [Entitic mass] 30.6 pg 27.0-32.0 [facility] Work Phone: [phone] Nucleated RBC/100 WBC (Bld) [Ratio] 0 % 0-5 [facility] Work Phone: MCHC Auto (RBC) [Mass/Vol]on 11-16-2021 MCHC (RBC) [Mass/Vol] 33.0 g/dL 32-36 [facility] Work Phone: Macrocytes detectionon 11-16 Macrocytes Ql (Bld) RARE [facility] Work Phone: No Panel Informationon 11-16 Estimated Creatinine Clearance Calc 13.63 ml/min [facility] Work Phone: Estimated GFR (MDRD) Amer 22 mL/min >60 [facility] Work Phone: Comment on above: GFR Calc Estimated GFR (MDRD) Non-Af Amer 18 mL/min >60 [facility] Work Phone: Comment on above: Non- GFR Calc Troponin I High Sensitivity 619 pg/mL 3.0-54.0 [facility] Work Phone: Comment on above: Critical Result(s) C alled at: 23:23:33 11/16/2021 by: BALDO BARRETO TO DONALD STOKES. Results read back by same. Please Note: New Test Units and Gender Specific Reference Ranges. For more information see Policy Stat Procedure [place] High Sensitivity Troponin (TNIH) and attachments. Platelets bldon 11-16-2021 Platelets (Bld) [#/Vol] 220 10*3/uL 150-450 [facility] Work Phone: RBC morphologyon 11-16-2021 RBC morphology finding Nom (Bld) N CHROM NORMAL NORM C&C [facility] Work Phone: Review by pathologiston 10-22 Pathologist review Rafael (Unsp spec) [Interp] June foll [facility] Work Phone: Pathologist review Rafael (Unsp spec) [Interp] Reviewed [facility] Work Phone: Comment on above: Previous reported re sult: June rubi Edited by: RGOOD on 11/17/21:1214Leukocytosis. PolycythemiaClinical correlation necessary.Alber Mccracken M.D. 11/17/21 AMENDED REPORT 11/17/21 1214 PATH REV previously reported as: June rubi Serum or plasma albumin scott urement (mass/volume)on 11-16-2021 Albumin [Mass/Vol] 3.1 g/dL 3.2-5.0 [facility] Work Phone: Serum or plasma albumin/glob ulin mass ratioon 11-16-2021 Albumin/Globulin [Mass ratio] 0.9 {ratio} 0.9-2.4 [facility] Work Phone: Serum or plasma calcium scott urement (mass/volume)on 11-16-2021 Calcium [Mass/Vol] 9.9 mg/dL 8.5-10.1 [facility] Work Phone: Serum or plasma creatinine m easurement (mass/volume)on 11-16-2021 Creatinine [Mass/Vol] 2.69 mg/dL 0.55-1.02 [facility] ster [facility] Work Phone: Comment on above: The validity of the calculated GFR & GFRAA in patients over 70 years has not been determined. Clinical correlation is essential. Serum or plasma urea nitroge n measurement (mass/volume)on 11-16-2021 Urea nitrogen [Mass/Vol] 38 mg/dL 7-18 [facility] Work Phone: Thin prep Papanicolaou smear with manual screeningon 11-16-2021 Thin prep Papanicolaou smear with manual screening 29 U/L 15-37 [facility] Work Phone: Thin prep Papanicolaou smear with manual screening 10 5-15 [facility] Work Phone: Laboratory - Coagulationon 0 11-02-2021 INR Coag (Bld) [Relative time] 2.6 {INR} [facility] Work Phone: Comment on above: Critical Value > 4.0 Whole blood prothrombin time on 11-02-2021 PT Coag (Bld) [Time] 30.3 s 11.7-14.9 [facility] Work Phone: INR in Blood by Coagulation assayon 09-28-2021 INR Coag (Bld) [Relative time] 2.1 {INR} [facility] Work Phone: Laboratory - Coagulationon 0 09-28-2021 PT Coag (PPP) [Time] 23.2 s 11.7-14.9 [facility] Work Phone: Laboratory - Coagulationon 0 08-30-2021 INR Coag (Bld) [Relative time] 2.2 {INR} [facility] Work Phone: Comment on above: Critical Value > 4.0 Whole blood prothrombin time on 08-30-2021 PT Coag (Bld) [Time] 26.3 s 11.7-14.9 [facility] Work Phone: Laboratory - Coagulationon 0 07-26-2021 INR Coag (Bld) [Relative time] 2.7 {INR} [facility] Work Phone: Comment on above: Critical Value > 4.0 Whole blood prothrombin time on 07-26-2021 PT Coag (Bld) [Time] 30.6 s 11.7-14.9 [facility] Work Phone: Laboratory - Coagulationon 0 06-25-2021 INR Coag (Bld) [Relative time] 2.2 {INR} [facility] Work Phone: Comment on above: Critical Value > 4.0 Whole blood prothrombin time on 06-25-2021 PT Coag (Bld) [Time] 26.3 s 11.7-14.9 [facility] Work Phone: Laboratory - Coagulationon 0 05-27-2021 INR Coag (Bld) [Relative time] 2.7 {INR} [facility] Work Phone: Comment on above: Critical Value > 4.0 Whole blood prothrombin time on 05-27-2021 PT Coag (Bld) [Time] 31.5 s 11.7-14.9 [facility] Work Phone: Laboratory - Coagulationon 0 04-29-2021 INR Coag (Bld) [Relative time] 2.3 {INR} [facility] Work Phone: Comment on above: Critical Value > 4.0 Whole blood prothrombin time on 04-29-2021 PT Coag (Bld) [Time] 27.2 s 11.7-14.9 [facility] Work Phone: Laboratory - Coagulationon 0 03-31-2021 INR Coag (Bld) [Relative time] 2.4 {INR} [facility] Work Phone: Comment on above: Critical Value > 4.0 Whole blood prothrombin time on 03-31-2021 PT Coag (Bld) [Time] 27.6 s 11.9-14.4 [facility] Work Phone: Laboratory - Coagulationon 0 03-02-2021 INR Coag (Bld) [Relative time] 2.0 {INR} [facility] Work Phone: Comment on above: Critical Value > 4.0 Whole blood prothrombin time on 03-02-2021 PT Coag (Bld) [Time] 23.6 s 11.9-14.4 [facility] Work Phone: Laboratory - Coagulationon 1 04-04-2020 INR Coag (Bld) [Relative time] 2.0 {INR} [facility] Work Phone: Comment on above: Critical Value > 4.0 Whole blood prothrombin time on 02-01-2021 PT Coag (Bld) [Time] 23.0 s 11.9-14.4 [facility] Work Phone: CBCon 05-08-2020 Erythrocyte distribution width (RBC) [Ratio] 15.7 % High 11.5 - 14.5 [facility] Comment on above: Performed By: #### C BC #### [address] [id number] Hematocrit (Bld) [Volume fraction] 29.4 % Low 36.0 - 46.0 [facility] Comment on above: Performed By: #### C BC #### [address] [id number] Hemoglobin (Bld) [Mass/Vol] 9.5 g/dL Low 12.0 - 16.0 [facility] Comment on above: Performed By: #### C BC #### [address] [id number] MCHC (RBC) [Mass/Vol] 32.3 g/dL Normal 32.0 - 36.0 [facility] Comment on above: Performed By: #### C BC #### [address] [id number] MCV (RBC) [Entitic vol] 92 fL Normal 80 - 100 [facility] Comment on above: Performed By: #### C BC #### [address] [id number] Platelets (Bld) [#/Vol] 292 10*3/uL Normal 150 - 450 [facility] Comment on above: Performed By: #### C BC #### [address] [id number] RBC (Bld) [#/Vol] 3.21 x10E12/L Low 4.00 - 5.20 [facility] Comment on above: Performed By: #### C BC #### [address] [id number] WBC (Bld) [#/Vol] 16.2 10*3/uL High 4.4 - 11.3 [facility] Comment on above: Performed By: #### C BC #### [address] [id number] COMPREHENSIVE PANELon 2020 Albumin [Mass/Vol] 2.8 g/dL Low 3.4 - 5.0 [facility] Comment on above: Performed By: #### C A #### [address] [id number] ALP [Catalytic activity/Vol] 85 U/L Normal 33 - 136 [facility] Comment on above: Performed By: #### C A #### [address] [id number] ALT [Catalytic activity/Vol] 28 U/L Normal 7 - 45 [facility] Comment on above: Result Comment: Liz ents treated with Sulfasalazine may generate falsely decreased results for ALT. Performed By: #### C A #### [address] [id number] Anion gap [Moles/Vol] 13 mmol/L Normal 10 - 20 [facility] Comment on above: Performed By: #### C A #### [address] [id number] AST [Catalytic activity/Vol] 17 U/L Normal 9 - 39 [facility] Comment on above: Performed By: #### C A #### [address] [id number] Bilirubin [Mass/Vol] 0.8 mg/dL Normal 0.0 - 1.2 [facility] Comment on above: Performed By: #### C A #### [address] [id number] Calcium [Mass/Vol] 9.0 mg/dL Normal 8.6 - 10.3 [facility] Comment on above: Performed By: #### C A #### [address] [address] [id number] Chloride [Moles/Vol] 101 mmol/L Normal 98 - 107 [facility] Comment on above: Performed By: #### C A #### [address] [id number] Creatinine [Mass/Vol] 1.87 mg/dL High 0.50 - 1.05 [facility] Comment on above: Performed By: #### C A #### [address] [id number] GFR- AM. 31 mL/min/1.73m2 Abnormal >60 [facility] Comment on above: Result Comment: CALC ULATIONS OF ESTIMATED GFR ARE PERFORMED USING THE MDRD STUDY EQUATION FOR THE IDMS-TRACEABLE CREATININE METHODS. CLIN CHEM 2007;53:766-72 Performed By: #### C A #### [address] [id number] GFR-NON AM. 26 mL/min/1.73m2 Abnormal >60 [facility] Comment on above: Performed By: #### C A #### [address] [id number] Glucose [Mass/Vol] 92 mg/dL Normal 74 - 99 [facility] Comment on above: Performed By: #### C A #### [address] [id number] HCO3 (Bld) [Moles/Vol] 30 mmol/L Normal 21 - 32 [facility] Comment on above: Performed By: #### C A #### [address] [id number] Potassium [Moles/Vol] 4.0 mmol/L Normal 3.5 - 5.3 [facility] Comment on above: Performed By: #### C A #### [address] [id number] Protein [Mass/Vol] 4.8 g/dL Low 6.4 - 8.2 [facility] Comment on above: Performed By: #### C A #### [address] [id number] Sodium [Moles/Vol] 140 mmol/L Normal 136 - 145 [facility] Comment on above: Performed By: #### C A #### [address] [id number] Urea nitrogen [Mass/Vol] 50 mg/dL High 6 - 23 [facility] Comment on above: Performed By: #### C A #### [address] [id number] Daily Progress Note-Endocrin litzy 05-08-2020 Daily Progress [...] reviewed Objective Data: Objective Information: T PRBPSpO2 Value36.28615633/9499% Date/Time05/08 14: 14: 14: 14: 14:14 Range(35.8C - 37.6C ) (71 - 80 ) (18 - 20 ) (143 - 174 )/ (86 - 99 ) (95% - 99% ) Highest temp of 37.6 C was recorded at 05/08 7:55 Pain reported at 05/08 9:31: 0 = None ---- Intake and Output ----- Mn/Dy/Year TimeIntakeOutputNet May 08, 2020 2:00 [id number] May 08, 2020 6:00 [id number] May 07, 2020 10:00 [id number] The Intake and Output Totals for the last 24 hours are: IntakeOutputNet [id number] Physical Exam by System: Constitutional: Well developed, [...] laboratory results: Comprehensive Metabolic Panel Trending View [id number] 05:22:00 07-May-2020 05:42:00 Glucose, Serum92 86 NA140 136 K4.0 4.0 CL101 99 Bicarbonate, Serum30 27 Anion Gap, Serum13 14 BUN50 H 55 H CREAT1.87 H 1.95 H GFR-Non Jkuxxiib39 A 25 A GFR- Gltebqvr20 A 30 A Calcium, Serum9.0 9.0 ALB2.8 [...] Updated: 08-May-2020 16:01 by Alexander Gregory) Normal [facility] Daily Progress Note-General Internal Medicineon 05-08-2020 Daily Progress Note-General Internal Medicine Service: General Internal Medicine Subjective Data: LINDA PERALTA is a 75 year old Female who is Hospital Day # 7. And examined, denies any fever, chills, chest pain, shortness of breath. Feels much improved. Rest of the ROS is negative. Objective Data: Objective Information: T PRBPSpO2 Value37.87761160/9699% Date/Time05/08 7: 7: 7: 7: 7:55 Range(35.8C - 37.6C ) (71 - 82 ) (18 - 20 ) (131 - 174 )/ (86 - 99 ) (95% - 99% ) Highest temp of 37.6 C was recorded at 05/08 7:55 Pain reported at 05/08 9:31: 0 = None ---- Intake and Output ----- Mn/Dy/Year TimeIntakeOutputNet May 08, 2020 6:00 [id number] May 07, 2020 10:00 [id number] May 07, 2020 2:00 [id number] The Intake and Output Totals for the last 24 hours are: IntakeOutputNet [id number] Physical Exam by System: Constitutional: Well developed, [...] Updated: 08-May-2020 11:38 by Baldo South) Normal [facility] Daily Progress Note-Infectio us Diseaseon 05-08-2020 [...] 7. Objective Data: Objective Information: T PRBPSpO2 Value36.84525530/9499% Date/Time05/08 14: 14: 14: 14: 14:14 Range(35.8C - 37.6C ) (71 - 80 ) (18 - 20 ) (143 - 174 )/ (86 - 99 ) (95% - 99% ) Highest temp of 37.6 C was recorded at 05/08 7:55 Pain reported at 05/08 9:31: 0 = None ---- Intake and Output ----- Mn/Dy/Year TimeIntakeOutputNet May 08, 2020 2:00 [id number] May 08, 2020 6:00 [id number] May 07, 2020 10:00 [id number] The Intake and Output Totals for the last 24 hours are: IntakeOutputNet [id number] T PRBPSpO2 Value36.69383747/9499% Date/Time05/08 14: 14: 14: 14: 14:14 Range(35.8C [...] RA Area A4C: 16.4 cm2 RA Major [place] A4C: 5.0 cm M-MODE MEASUREMENTS: Normal Ranges: [...] 1.2 m/s (0.6-0.9m/s) PV Max P.2 mmHg [id number] Tremayne Mcleod MD Electronically signed on 05/02/2020 [...] Last Updated: 08-May-2020 14:34 by Alberto Allred) [facility] Daily Progress Note-Nephrolo gyon 05-08-2020 Daily Progress Note-Nephrology Service: Nephrology Subjective Data: LINDA PERALTA is a 75 year old Female who is Hospital Day # 7. renal function improving, pt feeling better. Objective Data: Objective Information: T PRBPSpO2 Value37.77015031/9699% Date/Time05/08 7: 7: 7: 7: 7:55 Range(35.8C - 37.6C ) (71 - 82 ) (18 - 20 ) (131 - 174 )/ (86 - 99 ) (95% - 99% ) Highest temp of 37.6 C was recorded at 05/08 7:55 Pain reported at 05/08 9:31: 0 = None ---- Intake and Output ----- Mn/Dy/[facility] May 08, 2020 6:00 [id number] May 07, 2020 10:00 [id number] May 07, 2020 2:00 [id number] The Intake and Output Totals for the last 24 hours are: IntakeOutputNet [id number] Constitutional: Alert, in no acute distress HEENT: [...] partial nephrectomy, DVT/PE who was initially at [place] for AMS, hypercalcemia and hypotension now transferred here. 1. 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 Objective Data: Objective Information: T PRBPSpO2 Value36.94450430/9499% Date/Time05/08 14: 14: 14: 14: 14:14 Range(35.8C - 37.6C ) (71 - 80 ) (18 - 20 ) (143 - 174 )/ (86 - 99 ) (95% - 99% ) Highest temp of 37.6 C was recorded at 05/08 7:55 Pain reported at 05/08 9:31: 0 = None ---- Intake and Output ----- Mn/Dy/Year TimeIntakeOutputNet May 08, 2020 2:00 [id number] May 08, 2020 6:00 [id number] May 07, 2020 10:00 [id number] The Intake and Output Totals for the last 24 hours are: IntakeOutputNet [id number] Recent Lab Results: Results: CBC: 05/08/2020 05:22 [...] Last Updated: 08-May-2020 16:22 by Alvin Sawyer) [facility] Order Reconciliationon 05-08 Order Reconciliation Page 1 Discharge Reconciliation Document Reconciliation Type: Discharge requested on behalf of Baldo Suoth (Physician) done by Baldo South) Discharge - [...] 1 spray(s) Each Nostril DailyNotes from Pharmacy: [facility] 02-May-2020 02:08 Fluticasone 50 microgram/ Nasal [...] Injectable DOSE = 0.5 mL IntraVenous Push OnceCa.631969 mL/Kg/DOSE x 74.5 Kg = 0.5 mL/Dose [...] be shared with your follow-up providers (doctor, sink cutter, physical therapist, etc.). Guidelines for a Healthy [...] be shared with your follow-up providers (doctor, sink cutter, physical therapist, etc.). dupilumab 300 milligram(s) subcutaneous [...] 1 tab(s) orally once a day Normal [facility] CBCon 05-07-2020 Erythrocyte distribution width (RBC) [Ratio] 15.5 % High 11.5 - 14.5 [facility] Comment on above: Performed By: #### C BC ####[facility] [place], [place] [id number] Hematocrit (Bld) [Volume fraction] 30.4 % Low 36.0 - 46.0 [facility] Comment on above: Performed By: #### C BC ####[facility] [place], [place] [id number] Hemoglobin (Bld) [Mass/Vol] 9.8 g/dL Low 12.0 - 16.0 [facility] Comment on above: Performed By: #### C BC ####[facility] [place], [place] [id number] MCHC (RBC) [Mass/Vol] 32.2 g/dL Normal 32.0 - 36.0 [facility] Comment on above: Performed By: #### C BC ####[facility] [place], [place] [id number] MCV (RBC) [Entitic vol] 92 fL Normal 80 - 100 [facility] Comment on above: Performed By: #### C BC ####[facility] [place], [place] [id number] Platelets (Bld) [#/Vol] 279 10*3/uL Normal 150 - 450 [facility] Comment on above: Performed By: #### C BC ####[facility] [place], [place] [id number] RBC (Bld) [#/Vol] 3.31 x10E12/L Low 4.00 - 5.20 [facility] Comment on above: Performed By: #### C BC ####[facility] [place], [place] [phone] WBC (Bld) [#/Vol] 18.5 10*3/uL High 4.4 - 11.3 [facility] Comment on above: Performed By: #### C BC ####[facility] [place], [place] [id number] COMPREHENSIVE PANELon 2020 Albumin [Mass/Vol] 2.9 g/dL Low 3.4 - 5.0 [facility] Comment on above: Performed By: #### C MP #### [facility] [address] [place], [place] [phone] ALP [Catalytic activity/Vol] 80 U/L Normal 33 - 136 [facility] Comment on above: Performed By: #### C MP #### [address] [id number] ALT [Catalytic activity/Vol] 31 U/L Normal 7 - 45 [facility] Comment on above: Result Comment: Liz ents treated with Sulfasalazine may generate falsely decreased results for ALT. Performed By: #### C MP #### [address] [id number] Anion gap [Moles/Vol] 14 mmol/L Normal 10 - 20 [facility] Comment on above: Performed By: #### C MP #### [address] [id number] AST [Catalytic activity/Vol] 20 U/L Normal 9 - 39 [facility] Comment on above: Performed By: #### C MP #### [address] [id number] Bilirubin [Mass/Vol] 0.9 mg/dL Normal 0.0 - 1.2 [facility] Comment on above: Performed By: #### C MP #### [address] [id number] Calcium [Mass/Vol] 9.0 mg/dL Normal 8.6 - 10.3 [facility] Comment on above: Performed By: #### C MP #### [address] [id number] Chloride [Moles/Vol] 99 mmol/L Normal 98 - 107 [facility] Comment on above: Performed By: #### C MP #### [address] [id number] Creatinine [Mass/Vol] 1.95 mg/dL High 0.50 - 1.05 [facility] Comment on above: Performed By: #### C MP #### [address] [id number] GFR- AM. 30 mL/min/1.73m2 Abnormal >60 [facility] Comment on above: Result Comment: CALC ULATIONS OF ESTIMATED GFR ARE PERFORMED USING THE MDRD STUDY EQUATION FOR THE IDMS-TRACEABLE CREATININE METHODS. CLIN CHEM 2007;53:766-72 Performed By: #### C MP #### [address] [id number] GFR-NON AM. 25 mL/min/1.73m2 Abnormal >60 [facility] Comment on above: Performed By: #### C MP #### [address] [id number] Glucose [Mass/Vol] 86 mg/dL Normal 74 - 99 [facility] Comment on above: Performed By: #### C MP #### [address] [id number] HCO3 (Bld) [Moles/Vol] 27 mmol/L Normal 21 - 32 [facility] Comment on above: Performed By: #### C MP #### [address] [id number] Potassium [Moles/Vol] 4.0 mmol/L Normal 3.5 - 5.3 [facility] Comment on above: Performed By: #### C MP #### [address] [id number] Protein [Mass/Vol] 5.0 g/dL Low 6.4 - 8.2 [facility] Comment on above: Performed By: #### C MP #### [address] [id number] Sodium [Moles/Vol] 136 mmol/L Normal 136 - 145 [facility] Comment on above: Performed By: #### C MP #### [address] [id number] Urea nitrogen [Mass/Vol] 55 mg/dL High 6 - 23 [facility] Comment on above: Performed By: #### C MP #### [address] [id number] Daily Progress Note-General Internal Medicineon 05-07-2020 Daily Progress Note-General Internal Medicine Service: General Internal Medicine Subjective Data: LINDA PERALTA is a 75 year old Female who is Hospital Day # 6. Seen and examined, denies any fever, chills, chest pain, shortness of breath. Rest of the ROS is negative. Objective Data: Objective Information: T PRBPSpO2 Value36.72023587/8697% Date/Time05/07 14: 14: 14: 14: 14:03 Range(36C - 36.8C ) (77 - 85 ) (18 - 20 ) (125 - 170 )/ (80 - 98 ) (94% - 97% ) Pain reported at 05/07 12:04: 0 = None ---- Intake and Output ----- Mn/Dy/Year TimeIntakeOutputNet May 07, 2020 2:00 [id number] May 06, 2020 10:00 [id number] The Intake and Output Totals for the last 24 hours are: IntakeOutputNet [id number] Physical Exam by System: Constitutional: Well developed, [...] Last Updated: 07-May-2020 14:49 by Baldo South) [facility] Daily Progress Note-Infectio us Diseaseon 05-07-2020 Daily Progress Note-Infectious Disease Service: Infectious Disease History of Present Illness: History Present Illness: HPI: Possible aspiration pneumonia Recent UTI with Citrobacter No fevers chills sweats minimal cold Subjective Data: LINDA PERALTA is a 75 year old Female who is Hospital Day # 6. Objective Data: Objective Information: T PRBPSpO2 Value36.29705094/9897% Date/Time05/07 8: 8: 8: 8: 8:01 Range(36C - 36.8C ) (77 - 85 ) (18 - 20 ) (125 - 170 )/ (80 - 98 ) (94% - 98% ) Pain reported at 05/07 12:04: 0 = None ---- Intake and Output ----- Mn/Dy/Year TimeIntakeOutputNet May 06, 2020 10:00 [id number] May 06, 2020 2:00 [id number] The Intake and Output Totals for the last 24 hours are: IntakeOutputNet [id number] T PRBPSpO2 Value36.91129750/9897% Date/Time05/07 8: 8: 8: 8: 8:01 Range(36C [...] RA Area A4C: 16.4 cm2 RA [place] A4C: 5.0 cm M-MODE MEASUREMENTS: Normal Ranges: [...] 1.2 m/s (0.6-0.9m/s) PV Max P.2 mmHg [id number] Tremayne Mcleod MD Electronically signed on 05/02/2020 [...] Last Updated: 07-May-2020 13:30 by Alberto Allred) [facility] Daily Progress Note-Nephrolo gyon 05-07-2020 Daily Progress Note-Nephrology Service: Nephrology Subjective Data: LINDA PERALTA is a 75 year old Female who is Hospital Day # 6. renal function continues to slowly improve, uric acid and phos improving as well. Objective Data: Objective Information: T PRBPSpO2 Value36.44822730/9897% Date/Time05/07 8: 8: 8: 8: 8:01 Range(36C - 36.8C ) (77 - 85 ) (18 - 20 ) (125 - 170 )/ (80 - 98 ) (94% - 98% ) Pain reported at 05/06 23:56: 0 = None ---- [facility]ake and Output ----- [facility] May 06, 2020 10:00 [id number] May 06, 2020 2:00 [id number] The Intake and Output Totals for the last 24 hours are: [facility] [id number] Constitutional: Alert, in no acute distress HEENT: [...] partial nephrectomy, DVT/PE who was initially at [place] for AMS, hypercalcemia and hypotension now transferred here. 1. ANGELA on CKD: previously hypotensive at [place], now hypertensive, also CRS as pt is [...] Last Updated: 07-May-2020 11:30 by Leigh Billy) [facility] Daily Progress Note-Neurolog yon 05-07-2020 Daily Progress [...] better. Objective Data: Objective Information: T PRBPSpO2 Value36.44726802/8697% Date/Time3/18 19:143 19:143 19:143 19: 19:14 Range(36C - 36.6C ) (77 - 85 ) (20 - 20 ) (131 - 170 )/ (80 - 98 ) (94% - 97% ) Pain reported at 05/07 12:04: 0 = None ---- Intake and Output ----- Mn/Dy/[facility] May 07, 2020 2:00 [id number] May 06, 2020 10:00 [id number] The Intake and Output Totals for the last 24 hours are: IntakeOutputNet [id number] Physical Exam by System: Neurological: The patient [...] kidney to her brother Sarcoidosis History of Wharton's disease Gout Chronic kidney disease Hyperlipidemia Atopic [...] Updated: 07-May-2020 19:58 by Vicky Boyd) Normal [facility] Daily Progress Note-Neurology Service: Neurology Subjective [...] better. Objective Data: Objective Information: T PRBPSpO2 Value36.92705512/8194% Date/Time05/06 19: 19: 19: 19: 19:32 Range(36.6C - 36.8C ) (71 - 85 ) (18 - 18 ) (125 - 162 )/ (81 - 96 ) (88% - 99% ) Pain reported at 05/06 11:17: 0 = None ---- Intake and Output ----- Mn/Dy/Year TimeIntakeOutputNet May 06, 2020 10:00 [id number] May 06, 2020 2:00 [id number] The Intake and Output Totals for the last 24 hours are: IntakeOutputNet [id number] Physical Exam by System: Neurological: The patient [...] Last Updated: 06-May-2020 22:03 by Vicky Boyd) [facility] Daily Progress Note-Urologyo n 05-07-2020 Daily Progress [...] below. Objective Data: Objective Information: T PRBPSpO2 Value36.98553783/8697% Date/Time05/07 14: 14: 14: 14: 14:03 Range(36C - 36.8C ) (77 - 85 ) (18 - 20 ) (125 - 170 )/ (80 - 98 ) (94% - 97% ) Pain reported at 05/07 12:04: 0 = None ---- Intake and Output ----- [facility] 07, 2020 2:00 [id number] May 06, 2020 10:00 [id number] The Intake and Output Totals for the last 24 hours are: IntakeOutputNet [id number] T PRBPSpO2 Value36.32074007/8697% Date/Time05/07 14: 14: 14: 14: 14:03 Range(36C - 36.8C ) (77 - 85 ) (18 - 20 ) (125 - 170 )/ (80 - 98 ) (94% - 97% ) Pain reported at 05/07 12:04: 0 = None ---- Intake and Output ----- [facility]Dy/ [facility] May 07, 2020 2:00 [id number] May 06, 2020 10:00 [id number] The Intake and Output Totals for the last 24 hours are: IntakeOutputNet [id number] ---Intake--- Enteral - Oral PO Fluid/Feed (oral): [...] 8.1 H Basic Metabolic Panel Trending View [id number] 16:58:00 06-May-2020 05:38:00 Glucose, Fmprg359 H 100 H NA138 141 K3.9 2.9 LL CL97 L 100 Bicarbonate, Serum31 32 Anion Gap, Serum14 12 BUN57 H 62 H CREAT2.05 H 2.15 H GFR-Non Dcgudcye54 A 22 A GFR- Pokufohc76 A 27 A Calcium, Serum9.0 9.0 Lab [...] Updated: 07-May-2020 16:37 by Alvin Sawyer) Normal [facility] PHOSPHORUSon 05-07-2020 Phosphate [Mass/Vol] 3.3 mg/dL Normal 2.5 - 4.9 [facility] Comment on above: Result Comment: The performance characteristics of phosphorus testing in heparinized plasma have been validated by the individual laboratory site where testing is performed. Testing on heparinized plasma is not approved by the FDA; however, such approval is not necessary. Performed By: #### C A #### [address] [id number] PTH RELATED PROTEINon 2020 Protein [Mass/Vol] 0.5 pmol/L Normal < or = 4.2 [facility] Comment on above: Result Comment: ---- ADDITIONAL INFORMATION This test was developed and its performance characteristics determined by [facility] in a manner consistent with CLIA requirements. This test has not been cleared or approved by the U.S. Food and Drug Administration. Test Performed by: [facility] [place] [address] Shuttle Fixer: Sunny Triplett M.D. Ph.D.; CLIA# [id number] Performed By: #### P R12 #### [facility] [address] [place] [address] Protein [Mass/Vol] 0.8 pmol/L Normal < or = 4.2 [facility] Comment on above: Result Comment: ---- ADDITIONAL INFORMATION This test was developed and its performance characteristics determined by [facility] in a manner consistent with CLIA requirements. This test has not been cleared or approved by the U.S. Food and Drug Administration. Test Performed by: [facility] [address] [facility], [place] [address] Shuttle Fixer: Sunny Triplett M.D. Ph.D.; CLIA# [id number] Performed By: #### C BC #### [address] [id number] URIC ACIDon 05-07-2020 Urate [Mass/Vol] 8.1 mg/dL High 2.3 - 6.7 [facility] Comment on above: Result Comment: Nadia puncture immediately after or during the administration of Metamizole may lead to falsely low results. Testing should be performed immediately prior to Metamizole dosing. Performed By: #### C BC #### [address] [id number] BASIC METABOLIC PANELon 04-20 Anion gap [Moles/Vol] 14 mmol/L Normal 10 - 20 [facility] Comment on above: Performed By: #### C A #### [address] [id number] Calcium [Mass/Vol] 9.0 mg/dL Normal 8.6 - 10.3 [facility] Comment on above: Performed By: #### C A #### [address] [id number] Chloride [Moles/Vol] 97 mmol/L Low 98 - 107 [facility] Comment on above: Performed By: #### C A #### [address] [id number] Creatinine [Mass/Vol] 2.05 mg/dL High 0.50 - 1.05 [facility] Comment on above: Performed By: #### C A #### [address] [id number] GFR- AM. 28 mL/min/1.73m2 Abnormal >60 [facility] Comment on above: Result Comment: CALC ULATIONS OF ESTIMATED GFR ARE PERFORMED USING THE MDRD STUDY EQUATION FOR THE IDMS-TRACEABLE CREATININE METHODS. CLIN CHEM 2007;53:766-72 Performed By: #### C A #### [address] [id number] GFR-NON AM. 23 mL/min/1.73m2 Abnormal >60 [facility] Comment on above: Performed By: #### C A #### [address] [id number] Glucose [Mass/Vol] 124 mg/dL High 74 - 99 [facility] Comment on above: Performed By: #### C A #### [address] [id number] HCO3 (Bld) [Moles/Vol] 31 mmol/L Normal 21 - 32 [facility] Comment on above: Performed By: #### C A #### [address] [id number] Potassium [Moles/Vol] 3.9 mmol/L Normal 3.5 - 5.3 [facility] Comment on above: Performed By: #### C A #### [address] [id number] Sodium [Moles/Vol] 138 mmol/L Normal 136 - 145 [facility] Comment on above: Performed By: #### C A #### [address] [id number] Urea nitrogen [Mass/Vol] 57 mg/dL High 6 - 23 [facility] Comment on above: Performed By: #### C A #### [address] [id number] Anion gap [Moles/Vol] 12 mmol/L Normal 10 - 20 [facility] Comment on above: Order Comment: Aaron Mercado, 05/06/2020 06:54 Performed By: #### B MP ####[address] [id number] Calcium [Mass/Vol] 9.0 mg/dL Normal 8.6 - 10.3 [facility] Comment on above: Order Comment: Walker d- RB to [employer], 05/06/2020 06:54 Performed By: #### B MP ####[address] [id number] Chloride [Moles/Vol] 100 mmol/L Normal 98 - 107 [facility] Comment on above: Order Comment: Walker d- RB to [employer], 05/06/2020 06:54 Performed By: #### B MP ####[address] [id number] Creatinine [Mass/Vol] 2.15 mg/dL High 0.50 - 1.05 [facility] Comment on above: Order Comment: Walker d- RB to [employer], 05/06/2020 06:54 Performed By: #### B MP ####[address] [id number] GFR- AM. 27 mL/min/1.73m2 Abnormal >60 [facility] Comment on above: Order Comment: Walker d- RB to [employer], 05/06/2020 06:54 Result Comment: CALC ULATIONS OF ESTIMATED GFR ARE PERFORMED USING THE MDRD STUDY EQUATION FOR THE IDMS-TRACEABLE CREATININE METHODS. CLIN CHEM 2007;53:766-72 Performed By: #### B MP ####[address] [id number] GFR-NON AM. 22 mL/min/1.73m2 Abnormal >60 [facility] Comment on above: Order Comment: Walker d- RB to [employer], 05/06/2020 06:54 Performed By: #### B MP ####[address] [id number] Glucose [Mass/Vol] 100 mg/dL High 74 - 99 [facility] Comment on above: Order Comment: Walker d- RB to [employer], 05/06/2020 06:54 Performed By: #### B MP ####[address] [id number] HCO3 (Bld) [Moles/Vol] 32 mmol/L Normal 21 - 32 [facility] Comment on above: Order Comment: Walker d- RB to [employer], 05/06/2020 06:54 Performed By: #### B MP ####[facility] [place], [place] [id number] Potassium [Moles/Vol] 2.9 mmol/L Critically low 3.5 - 5.3 [facility] Comment on above: Order Comment: Walker d- RB to [employer], 05/06/2020 06:54 Result Comment: Call ed- RB to [employer], 05/06/2020 06:54 Performed By: #### B MP ####[address] [place], [place] [id number] Sodium [Moles/Vol] 141 mmol/L Normal 136 - 145 [facility] Comment on above: Order Comment: Walker d- RB to [employer], 05/06/2020 06:54 Performed By: #### B MP ####[facility] [place], [place] [id number] Urea nitrogen [Mass/Vol] 62 mg/dL High 6 - 23 [facility] Comment on above: Order Comment: Walker d- RB to [employer], 05/06/2020 06:54 Performed By: #### B MP ####[address] [place], [place] [id number] Daily Progress Note-Endocrin litzy 05-06-2020 Daily Progress [...] potassium Objective Data: Objective Information: T PRBPSpO2 Value36.32636925/9099% Date/Time05/06 7: 7: 7: 7: 7:33 Range(36.2C - 36.7C ) (71 - 82 ) (18 - 18 ) (136 - 162 )/ (82 - 96 ) (88% - 99% ) Pain reported at 05/06 11:17: 0 = None ---- Intake and Output ----- [facility] May 05, 2020 10:00 [id number] May 05, 2020 2:00 [id number] The Intake and Output Totals for the last 24 hours are: IntakeOutputNet [id number] T PRBPSpO2 Value36.65353792/9099% Date/Time05/06 7: 7: 7: 7: 7:33 Range(36.2C [...] laboratory results: Basic Metabolic Panel Trending View [id number]-Nkb-7004 05:38:00 05-May-2020 05:34:00 Lab Comment:Called- RB to Rogelio, 05/06/2020 06:54 Called- RB to Catherine Marroquin, 05/05/2020 06:47 Glucose, Dhcgt155 H 98 NA141 139 K2.9 LL 2.9 LL CL100 100 Bicarbonate, Serum32 31 Anion Gap, Serum12 11 BUN62 H 72 H CREAT2.15 H 2.28 H GFR-Non Fxfskwsb78 A 21 A GFR- Thuhvsdp16 A 25 A Calcium, Serum9.0 9.1 Magnesium, [...] Updated: 06-May-2020 12:32 by Alexander Gregory) Normal [facility] Daily Progress Note-General Internal Medicineon [...] negative. Objective Data: Objective Information: T PRBPSpO2 Value36.32098091/8498% Date/Time05/06 13: 13: 13: 13: 13:40 Range(36.2C - 36.7C ) (71 - 82 ) (18 - 18 ) (132 - 162 )/ (82 - 96 ) (88% - 99% ) Pain reported at 05/06 11:17: 0 = None ---- [facility]ake and Output ----- [facility] May 05, 2020 10:00 [id number] May 05, 2020 2:00 [id number] The Intake and Output Totals for the last 24 hours are: IntakeOutputNet 126239-2514 Physical Exam by System: Constitutional: Well developed, [...] Last Updated: 06-May-2020 13:56 by Baldo South) [facility] Daily Progress Note-Infectio us Diseaseon 05-06-2020 Daily Progress Note-Infectious Disease Service: Infectious Disease History of Present Illness: History Present Illness: HPI: Possible aspiration pneumonia Recent UTI with Citrobacter No fevers chills sweats minimal cold Subjective Data: LINDA PERALTA is a 75 year old Female who is Hospital Day # 5. Objective Data: Objective Information: T PRBPSpO2 Value36.06463215/9099% Date/Time05/06 7: 7: 7: 7: 7:33 Range(36.2C - 36.7C ) (71 - 82 ) (18 - 18 ) (136 - 162 )/ (82 - 96 ) (88% - 99% ) Pain reported at 05/06 11:17: 0 = None ---- Intake and Output ----- [facility] May 05, 2020 10:00 [id number] May 05, 2020 2:00 [id number] The Intake and Output Totals for the last 24 hours are: IntakeOutputNet [id number] T PRBPSpO2 Value36.95837898/9099% Date/Time05/06 7: 7: 7: 7: 7:33 Range(36.2C [...] RA Area A4C: 16.4 cm2 RA [place] A4C: 5.0 cm M-MODE MEASUREMENTS: Normal Ranges: [...] 1.2 m/s (0.6-0.9m/s) PV Max P.2 mmHg [id number] Tremayne Mcleod MD Electronically signed on 05/02/2020 [...] Last Updated: 06-May-2020 12:25 by Alberto Allred) [facility] Daily Progress Note-Nephrolo gyon 05-06-2020 Daily Progress Note-Nephrology Service: Nephrology Subjective Data: LINDA PERALTA is a 75 year old Female who is Hospital Day # 5. renal function slowly improving, K low this AM, getting corrected, feels better. Objective Data: Objective Information: T PRBPSpO2 Value36.04755472/9099% Date/Time05/06 7: 7: 7: 7: 7:33 Range(36.2C - 36.7C ) (71 - 82 ) (18 - 18 ) (136 - 162 )/ (82 - 96 ) (88% - 99% ) Pain reported at 05/06 0:50: 0 = None ---- Intake and Output ----- Mn/Dy/Year TimeIntakeOutputNet May 05, 2020 10:00 [id number] May 05, 2020 2:00 [id number] The Intake and Output Totals for the last 24 hours are: IntakeOutputNet 375654-7000 Constitutional: Alert, in no acute distress HEENT: [...] partial nephrectomy, DVT/PE who was initially at [facility] for AMS, hypercalcemia and hypotension now transferred here. 1. ANGELA on CKD: previously hypotensive at [facility], now hypertensive, also CRS as pt is [...] Updated: 06-May-2020 11:02 by Leigh Billy) Normal [facility] Daily Progress Note-Urologyo n 05-06-2020 [...] below. Objective Data: Objective Information: T PRBPSpO2 Value36.05032970/8498% Date/Time05/06 13: 13: 13: 13: 13:40 Range(36.5C - 36.7C ) (71 - 82 ) (18 - 18 ) (132 - 162 )/ (83 - 96 ) (88% - 99% ) Pain reported at 05/06 11:17: 0 = None ---- Intake and Output ----- [facility] May 06, 2020 2:00 [id number] May 05, 2020 10:00 [id number] The Intake and Output Totals for the last 24 hours are: IntakeOutputNet 119606-3577 T PRBPSpO2 Value36.20296215/8498% Date/Time05/06 13: 13: 13: 13: 13:40 Range(36.5C - 36.7C ) (71 - 82 ) (18 - 18 ) (132 - 162 )/ (83 - 96 ) (88% - 99% ) Pain reported at 05/06 11:17: 0 = None ---- Intake and Output ----- [facility] May 06, 2020 2:00 [id number] May 05, 2020 10:00 [id number] The Intake and Output Totals for the last 24 hours are: IntakeOutputNet [id number] ---Intake--- Enteral - Oral PO Fluid/Feed (oral): [...] laboratory results: Basic Metabolic Panel Trending View Fppily54-Nff-[id number] 05:38:00 05-May-2020 05:34:00 Lab Comment:Called- RB to Rogelio, 05/06/2020 06:54 Called- RB to Catherineaurelia Marroquin, 05/05/2020 06:47 Glucose, Fzvmg324 H 98 NA141 139 K2.9 LL 2.9 LL CL100 100 Bicarbonate, Serum32 31 Anion Gap, Serum12 11 BUN62 H 72 H CREAT2.15 H 2.28 H GFR-Non Mvwgqnbr05 A 21 A GFR- Henivxbu28 A 25 A Calcium, Serum9.0 9.1 Magnesium, [...] Last Updated: 06-May-2020 16:21 by Alvin Sawyer) [facility] Discharge [id number] 021 Discharge Profile2 Discharge Orders: Anticipated Discharge Date: Anticipated Discharge Clep65-Zhf-[id number] DNAR: DNAR Status: DNAR Was Extending the [...] Physician/Dept/Jocelin Gregory MD / Endocrinology [facility] Reason for Referralhosp dc fu Scheduled Date/Dzrf08-Nrg-7087 15:00 [address] [place] [address] CommentsPlease wear a mask when entering the building. Please bring discharge papers, a list of all medications, insurance card photo id. Please call the office if unable to keep this appointment. Electronic Signatures: Bernardino Valentino (PT ACC REP) (Signed 06-May-2020 13:18) Authored: Discharge Orders, Appointments, Gold Form - Shirt Operator Summary Baldo South) (Signed 08-May-2020 15:33) Authored: Discharge Orders, Hospital Course (Home Care/Gold Form), Gold Form Orders, Provider FINAL REVIEW of Orders Last Updated: 08-May-2020 15:33 by Baldo South) Normal [facility] EMR ADDONon 05-06-2020 ADDON CONFIRMATION REQUEST REC'D Normal [facility] Comment on above: Performed By: #### C MP #### [address] [id number] MAGNESIUMon 05-06-2020 Magnesium [Mass/Vol] 1.80 mg/dL Normal 1.60 - 2.40 [facility] Comment on above: Performed By: #### C A #### [address] [id number] VITAMIN D 1,25-DIHYDROXYon 0 05-06-2020 VITAMIN D 1,25-DIHYDROXY 34.3 pg/mL Normal 19.9-79.3 [facility] Comment on above: Result Comment: INTE RPRETIVE INFORMATION: Vitamin D, 1,25-Dihydroxy This test is primarily indicated during patient evaluation for hypercalcemia and renal failure. A normal result does not rule out Vitamin D deficiency. The recommended test for diagnosing Vitamin D deficiency is Vitamin D 25-hydroxy. Performed By: [address] [place] [address] Claim Administrator: Eliza Fuller MD Performed By: #### V TDDI #### [address] [place] [address] BASIC METABOLIC PANELon 04-20 Anion gap [Moles/Vol] 11 mmol/L Normal 10 - 20 [facility] Comment on above: Order Comment: TEST CALCIUM WAS CANCELLED, 05/02/2020 12:20 added per RN 05/02/2020 12:20. Performed By: #### C A #### [address] [id number] Calcium [Mass/Vol] 9.1 mg/dL Normal 8.6 - 10.3 [facility] Comment on above: Order Comment: TEST CALCIUM WAS CANCELLED, 05/02/2020 12:20 added per RN 05/02/2020 12:20. Performed By: #### C A #### [address] [id number] Chloride [Moles/Vol] 100 mmol/L Normal 98 - 107 [facility] Comment on above: Order Comment: TEST CALCIUM WAS CANCELLED, 05/02/2020 12:20 added per RN 05/02/2020 12:20. Performed By: #### C A #### [address] [id number] Creatinine [Mass/Vol] 2.28 mg/dL High 0.50 - 1.05 [facility] Comment on above: Order Comment: TEST CALCIUM WAS CANCELLED, 05/02/2020 12:20 added per RN 05/02/2020 12:20. Performed By: #### C A #### [address] [id number] GFR- AM. 25 mL/min/1.73m2 Abnormal >60 [facility] Comment on above: Order Comment: TEST CALCIUM WAS CANCELLED, 05/02/2020 12:20 added per RN 05/02/2020 12:20. Result Comment: CALC ULATIONS OF ESTIMATED GFR ARE PERFORMED USING THE MDRD STUDY EQUATION FOR THE IDMS-TRACEABLE CREATININE METHODS. CLIN CHEM 2007;53:766-72 Performed By: #### C A #### [address] [id number] GFR-NON AM. 21 mL/min/1.73m2 Abnormal >60 [facility] Comment on above: Order Comment: TEST CALCIUM WAS CANCELLED, 05/02/2020 12:20 added per RN 05/02/2020 12:20. Performed By: #### C A #### [address] [id number] Glucose [Mass/Vol] 98 mg/dL Normal 74 - 99 [facility] Comment on above: Order Comment: TEST CALCIUM WAS CANCELLED, 05/02/2020 12:20 added per RN 05/02/2020 12:20. Performed By: #### C A #### [address] [id number] HCO3 (Bld) [Moles/Vol] 31 mmol/L Normal 21 - 32 [facility] Comment on above: Order Comment: TEST CALCIUM WAS CANCELLED, 05/02/2020 12:20 added per RN 05/02/2020 12:20. Performed By: #### C A #### [address] [id number] Potassium [Moles/Vol] 2.9 mmol/L Critically low 3.5 - 5.3 [facility] Comment on above: Order Comment: TEST CALCIUM WAS CANCELLED, 05/02/2020 12:20 added per RN 05/02/2020 12:20. Result Comment: Call ed- RB to Catherine Marroquin, 05/05/2020 06:47 Performed By: #### C A #### [address] [id number] Sodium [Moles/Vol] 139 mmol/L Normal 136 - 145 [facility] Comment on above: Order Comment: TEST CALCIUM WAS CANCELLED, 05/02/2020 12:20 added per RN 05/02/2020 12:20. Performed By: #### C A #### [address] [phone] Urea nitrogen [Mass/Vol] 72 mg/dL High 6 - 23 [facility] Comment on above: Order Comment: TEST CALCIUM WAS CANCELLED, 05/02/2020 12:20 added per RN 05/02/2020 12:20. Performed By: #### C A #### [address] [id number] CBCon 05-05-2020 Erythrocyte distribution width (RBC) [Ratio] 15.6 % High 11.5 - 14.5 [facility] Comment on above: Performed By: #### C BC ####[facility] [place], [place] [id number] Hematocrit (Bld) [Volume fraction] 30.6 % Low 36.0 - 46.0 [facility] Comment on above: Performed By: #### C BC ####[address] [place], [place] [phone] Hemoglobin (Bld) [Mass/Vol] 10.2 g/dL Low 12.0 - 16.0 [facility] Comment on above: Performed By: #### C BC ####[facility] [place], [place] [id number] MCHC (RBC) [Mass/Vol] 33.3 g/dL Normal 32.0 - 36.0 [facility] Comment on above: Performed By: #### C BC ####[address] [id number] MCV (RBC) [Entitic vol] 89 fL Normal 80 - 100 [facility] Comment on above: Performed By: #### C BC ####[facility] [place], [place] [phone] Platelets (Bld) [#/Vol] 323 10*3/uL Normal 150 - 450 [facility] Comment on above: Performed By: #### C BC ####[facility] [place], [place] [id number] RBC (Bld) [#/Vol] 3.43 x10E12/L Low 4.00 - 5.20 [facility] Comment on above: Performed By: #### C BC ####[facility] [place], [place] [id number] WBC (Bld) [#/Vol] 19.9 10*3/uL High 4.4 - 11.3 [facility] Comment on above: Performed By: #### C BC ####[address] [place], [place] [phone] Consult-Orthopaedicson 05-05 Consult-Orthopaedics Service: Service: Orthopaedics History [...] will be reviewed by Dr. Glynn our insurance plan specialist. The patient is anticoagulated with Coumadin. [...] Last Updated: 05-May-2020 18:14 by Javier Hathaway) [facility] Daily Progress Note-Endocrin ologyon 05-05-2020 Daily Progress Note-Endocrinology Service: Endocrinology Subjective Data: LINDA PERALTA is a 75 year old Female who is Hospital Day # 4. Additional Information: Doing well she feels she has improved c/o lot of weakness all over Objective Data: Objective Information: T PRBPSpO2 Value36.817180/8395% Date/Time05/05 19: 19: 19: 19:19 Range(36.2C - 36.5C ) (73 - 83 ) (136 - 148 )/ (82 - 88 ) (94% - 98% ) Pain reported at 05/05 9:49: 0 = None ---- Intake and Output ----- Mn/Dy/[facility] May 05, 2020 2:00 [id number] May 05, 2020 6:00 [id number] May 04, 2020 10:00 [id number] The Intake and Output Totals for the last 24 hours are: IntakeOutputNet [id number] Physical Exam by System: Constitutional: Well developed, [...] Serum 31.6 Basic Metabolic Panel Trending View [id number]-[id number] 05:34:00 04-May-2020 05:26:00 Lab Comment:Called- RB to Catherine Cara, 05/05/2020 06:47 Glucose, Serum98 90 NA139 137 K2.9 LL 3.6 CL100 101 Bicarbonate, Serum31 27 Anion Gap, Serum11 13 BUN72 H 79 H CREAT2.28 H 2.39 H GFR-Non Tazlcpzq76 A 20 A GFR- Diajrjux79 A 24 A Calcium, Serum9.1 9.8 Uric [...] Updated: 05-May-2020 21:57 by Alexander Gregory) Normal [facility] Daily Progress Note-General Internal Medicineon [...] negative. Objective Data: Objective Information: T PRBPSpO2 Value36.39080912/8398% Date/Time05/05 7: 7: 14: 7: 7:22 Range(36.2C - 36.3C ) (75 - 83 ) (18 - 18 ) (135 - 148 )/ (83 - 88 ) (93% - 98% ) Pain reported at 05/05 9:49: 0 = None ---- Intake and Output ----- Mn/Dy/Year TimeIntakeOutputNet May 05, 2020 2:00 [id number] May 05, 2020 6:00 [id number] May 04, 2020 10:00 [id number] The Intake and Output Totals for the last 24 hours are: IntakeOutputNet [id number] Physical Exam by System: Constitutional: Well developed, [...] Last Updated: 05-May-2020 14:08 by Baldo South) [facility] Daily Progress Note-Infectio us Diseaseon 05-05-2020 Daily Progress Note-Infectious Disease Service: Infectious Disease History of Present Illness: History Present Illness: HPI: Possible aspiration pneumonia Recent UTI with Citrobacter No fevers chills sweats minimal cold Subjective Data: LINDA PERALTA is a 75 year old Female who is Hospital Day # 4. Objective Data: Objective Information: T PRBPSpO2 Value36.11531002/8398% Date/Time05/05 7: 7: 14: 7: 7:22 Range(36.2C - 36.3C ) (75 - 83 ) (18 - 18 ) (135 - 148 )/ (83 - 88 ) (93% - 98% ) Pain reported at 05/05 9:49: 0 = None ---- Intake and Output ----- Mn/Dy/Year TimeIntakeOutputNet May 05, 2020 6:00 [id number] May 04, 2020 10:00 [id number] May 04, 2020 2:00 [id number] The Intake and Output Totals for the last 24 hours are: IntakeOutputNet [id number] T PRBPSpO2 Value36.65404362/8398% Date/Time3/16 7: 7: 14:16 7:16 7:22 Range(36.2C [...] laboratory results: Complete Blood Count Trending View [id number]-[id number] 05:35:00 04-May-2020 05:26:00 White Blood Cell Count19.9 H 22.3 H Red Blood Cell Count3.43 L 3.82 L HGB10.2 L 11.2 L HCT30.6 L 34.4 L MCV89 90 MCHC33.3 32.6 CZQ021 382 RDW-CV15.6 H 15.9 H Parathormone Intact, Serum 05-May-2020 05:35:00 ResultValue Parathormone Intact, Serum 31.6 Basic Metabolic Panel Trending View Uvlhrs07-[id number] 05:34:00 04-May-2020 05:26:00 Lab Comment:Called- RB to Catherine Marroquin, 05/05/2020 06:47 Glucose, Serum98 90 NA139 137 K2.9 LL 3.6 CL100 101 Bicarbonate, Serum31 27 Anion Gap, Serum11 13 BUN72 H 79 H CREAT2.28 H 2.39 H GFR-Non Totqperd47 A 20 A GFR- Juenjcsj08 A 24 A Calcium, Serum9.1 9.8 PT + INR, Plasma Trending View Uvdjqs56-Kcf-9157 05:34:00 04-May-2020 05:26:00 Prothrombin Time, Zekddu63.6 H 27.5 H International Normalized Ratio, Plasma2.0 [...] RA Area A4C: 16.4 cm2 RA [place] A4C: 5.0 cm M-MODE MEASUREMENTS: Normal Ranges: [...] 1.2 m/s (0.6-0.9m/s) PV Max P.2 mmHg [id number] Tremayne Mcleod MD Electronically signed on 05/02/2020 [...] Updated: 05-May-2020 12:21 by Alberto Allred) Normal [facility] Daily Progress Note-Nephrolo gray 05-05-2020 Daily Progress Note-Nephrology Service: Nephrology Subjective Data: LINDA PERALTA is a 75 year old Female who is Hospital Day # 4. renal function stable, Ca wnl, uric acid better, off fluids. Objective Data: Objective Information: T PRBPSpO2 Value36.36595346/8398% Date/Time05/05 7: 7: 14: 7: 7:22 Range(36.2C - 36.3C ) (75 - 83 ) (18 - 18 ) (135 - 148 )/ (83 - 88 ) (93% - 98% ) Pain reported at 05/05 9:49: 0 = None ---- Intake and Output ----- Mn/Dy/Year TimeIntakeOutputNet May 05, 2020 6:00 [id number] May 04, 2020 10:00 [id number] May 04, 2020 2:00 [id number] The Intake and Output Totals for the last 24 hours are: IntakeOutputNet [id number] Constitutional: Alert, in no acute distress HEENT: [...] partial nephrectomy, DVT/PE who was initially at [facility] for AMS, hypercalcemia and hypotension now transferred here. 1. ANGELA on CKD: previously hypotensive at [facility], now hypertensive, also CRS as pt is [...] Updated: 05-May-2020 14:00 by Leigh Billy) Normal [facility] Daily Progress Note-Neurolog yon 05-05-2020 [...] better. Objective Data: Objective Information: T PRBPSpO2 Value36.434095/8295% Date/Time05/05 14: 14: 14: 14:30 Range(36.2C - 36.3C ) (73 - 83 ) (135 - 148 )/ (82 - 88 ) (94% - 98% ) Pain reported at 05/05 9:49: 0 = None ---- Intake and Output ----- Mn/Dy/Year TimeIntakeOutputNet May 05, 2020 2:00 [id number] May 05, 2020 6:00 [id number] May 04, 2020 10:00 [id number] The Intake and Output Totals for the last 24 hours are: IntakeOutputNet [id number] Physical Exam by System: Neurological: The patient [...] kidney to her brother Sarcoidosis History of Wharton's disease Gout Chronic kidney disease Hyperlipidemia Atopic [...] Last Updated: 05-May-2020 19:20 by Vicky Boyd) [facility] Daily Progress Note-Urologyo n 05-05-2020 Daily Progress [...] below. Objective Data: Objective Information: T PRBPSpO2 Value36.15627466/8398% Date/Time05/05 7: 7: 14: 7: 7:22 Range(36.2C - 36.3C ) (75 - 83 ) (18 - 18 ) (135 - 148 )/ (83 - 88 ) (93% - 98% ) Pain reported at 05/05 9:49: 0 = None ---- Intake and Output ----- [facility] May 05, 2020 6:00 [id number] May 04, 2020 10:00 [id number] May 04, 2020 2:00 [id number] The Intake and Output Totals for the last 24 hours are: IntakeOutputNet [id number] T PRBPSpO2 Value36.89921829/8398% Date/ 7: 7: 14: 7: 7:22 Range(36.2C - 36.3C ) (75 - 83 ) (18 - 18 ) (135 - 148 )/ (83 - 88 ) (93% - 98% ) Pain reported at 05/05 9:49: 0 = None ---- Intake and Output ----- [facility] May 05, 2020 6:00 [id number] May 04, 2020 10:00 [id number] May 04, 2020 2:00 [id number] The Intake and Output Totals for the last 24 hours are: IntakeOutputNet [id number] ---Intake--- Enteral - Oral PO Fluid/Feed (oral): [...] laboratory results: Complete Blood Count Trending View Xmhdty43-[id number] 05:35:00 04-May-2020 05:26:00 White Blood Cell Count19.9 H 22.3 H Red Blood Cell Count3.43 L 3.82 L HGB10.2 L 11.2 L HCT30.6 L 34.4 L MCV89 90 MCHC33.3 32.6 ARU613 382 RDW-CV15.6 H 15.9 H Parathormone Intact, Serum 05-May-2020 05:35:00 ResultValue Parathormone Intact, Serum 31.6 Basic Metabolic Panel Trending View Kzxrzn23-Ecm-3303 05:34:00 04-May-2020 05:26:00 Lab Comment:Called- RB to Catherine Cara, 05/05/2020 06:47 Glucose, Serum98 90 NA139 137 K2.9 LL 3.6 CL100 101 Bicarbonate, Serum31 27 Anion Gap, Serum11 13 BUN72 H 79 H CREAT2.28 H 2.39 H GFR-Non Irdribgc52 A 20 A GFR- Ohfjpizr25 A 24 A Calcium, Serum9.1 9.8 PT [...] RA Area A4C: 16.4 cm2 RA [place] A4C: 5.0 cm M-MODE MEASUREMENTS: Normal Ranges: [...] 1.2 m/s (0.6-0.9m/s) PV Max P.2 mmHg [id number] Tremayne Mcleod MD Electronically signed on 05/02/2020 [...] Updated: 05-May-2020 13:22 by Alvin Sawyer) Normal [facility] CHELA PATH REVIEWon 05-05-2020 PATH REVIEW-CHELA NNEKA Normal [facility] Comment on above: Result Comment: By h er/his signature above, the Pathologist listed as making the final interpretation certifies that she/he has personally reviewed this case. Performed By: #### P R12 #### [facility] [address] [place] [address] PARATHYROID HORMONE,INTACTon 05-05-2020 PARATHYROID HORMONE,INTACT 31.6 pg/mL Normal 12.0 - 88.0 [facility] Comment on above: Performed By: #### P TH ####[address] [id number] PHOSPHORUSon 05-05-2020 Phosphate [Mass/Vol] 4.8 mg/dL Normal 2.5 - 4.9 [facility] Comment on above: Result Comment: The performance characteristics of phosphorus testing in heparinized plasma have been validated by the individual laboratory site where testing is performed. Testing on heparinized plasma is not approved by the FDA; however, such approval is not necessary. Performed By: #### P HOS ####[address] [id number] PROTEIN ELECTROPHORESIS + IM MUNOFIXATION, SERUMon 05-05-2020 IMMUNOFIXATION INTERP NORMAL Normal [facility] Comment on above: Result Comment: No m onoclonal proteins detected by immunofixation. Performed By: #### I FE2 ####[address] [id number] [place] [address] INTERPRETATION SEE COMMENT Normal [facility] Comment on above: Result Comment: REFL EXED TO IMMUNOFIXATION ELECTROPHORESIS Hypoalbuminemia. Performed By: #### I FE2 ####[facility] [place], [place] [id number] [place] [address] MONOCLONAL PROTEIN NONE DETECTED Normal [facility] Comment on above: Performed By: #### I FE2 ####[facility] [place], [place] [id number] [place] [address] PT/INRon 05-05-2020 INR Coag (PPP) [Relative time] 2.0 {INR} High 0.9 - 1.1 [facility] Comment on above: Performed By: #### P TINR ####[address] [id number] PT Coag (PPP) [Time] 23.6 s High 10.1 - 13.3 [facility] Comment on above: Performed By: #### P TINR ####[address] [id number] SPE PATH REVIEWon 05-05-2020 PATH REVIEW-SPE NNEKA Normal [facility] Comment on above: Result Comment: By h er/his signature above, the Pathologist listed as making the final interpretation certifies that she/he has personally reviewed this case. Performed By: #### P R12 #### [facility] [address] [place] [address] Swallow Evaluation v2-Bedsid e Clinical Swallow, SLPon 05-05-2020 Swallow Evaluation v2-Bedside Clinical Swallow, CHIEF EXECUTIVE Rehab: Info: Time IN12:00 Time OUT12:15 Total Treatment [id number] Evaluation TypeBedside Clinical Swallow, CHIEF EXECUTIVE Patient Effortgood Patient Profile Reviewedyes Reason for [...] Met (Swallow Eval)yes; treatment indicated Therapy Frequency (CHIEF EXECUTIVE)3-5x/wk Expected Duration Therapy Wqwqqyg48 minutes CHIEF EXECUTIVE Diet Recommendations (Swallow Eval)REGULAR WITH THIN LIQUIDS Recommended Feeding/Eating Techniques (Swallow Eval)alternate between small bites and sips of food/liquid& double/multiple swallows& feed upright in 90 degree position& small sips/bites& slow rate Monitor for Signs of Aspiration (Swallow Eval)cough; gurgly voice; throat clearing; fever; upper respiratory infection; pneumonia Short Term Goals: Dysphagia/Swallow: Established [id number]-[id number]-1026 Dysphagia/Swallow: Goal Details1. Patient will tolerate highest [...] evaluation. This documentation was completed using the SAICation system. There may be spelling and/or grammatical errors that were not corrected prior to final submission. Electronic Signatures: Jayme Keys (CHIEF EXECUTIVE) (Signed 05-May-2020 13:38) Authored: Info, Impression, Short Term Goals, Education Last Updated: 05-May-2020 13:38 by Jayme Keys (CHIEF EXECUTIVE) Normal [facility] URIC ACIDon 05-05-2020 Urate [Mass/Vol] 9.7 mg/dL High 2.3 - 6.7 [facility] Comment on above: Result Comment: Nadia puncture immediately after or during the administration of Metamizole may lead to falsely low results. Testing should be performed immediately prior to Metamizole dosing. Performed By: #### C MP #### [facility] [facility] [address] [place], [place] [id number] BASIC METABOLIC PANELon 04-20 Anion gap [Moles/Vol] 13 mmol/L Normal 10 - 20 [facility] Comment on above: Performed By: #### C MP #### [facility] [address] [place], [place] [id number] Calcium [Mass/Vol] 9.8 mg/dL Normal 8.6 - 10.3 [facility] Comment on above: Performed By: #### C MP #### [address] [id number] Chloride [Moles/Vol] 101 mmol/L Normal 98 - 107 [facility] Comment on above: Performed By: #### C MP #### [address] [id number] Creatinine [Mass/Vol] 2.39 mg/dL High 0.50 - 1.05 [facility] Comment on above: Performed By: #### C MP #### [address] [id number] GFR- AM. 24 mL/min/1.73m2 Abnormal >60 [facility] Comment on above: Result Comment: CALC ULATIONS OF ESTIMATED GFR ARE PERFORMED USING THE MDRD STUDY EQUATION FOR THE IDMS-TRACEABLE CREATININE METHODS. CLIN CHEM 2007;53:766-72 Performed By: #### C MP #### [address] [id number] GFR-NON AM. 20 mL/min/1.73m2 Abnormal >60 [facility] Comment on above: Performed By: #### C MP #### [address] [id number] Glucose [Mass/Vol] 90 mg/dL Normal 74 - 99 [facility] Comment on above: Performed By: #### C MP #### [address] [id number] HCO3 (Bld) [Moles/Vol] 27 mmol/L Normal 21 - 32 [facility] Comment on above: Performed By: #### C MP #### [address] [id number] Potassium [Moles/Vol] 3.6 mmol/L Normal 3.5 - 5.3 [facility] Comment on above: Performed By: #### C MP #### [address] [id number] Sodium [Moles/Vol] 137 mmol/L Normal 136 - 145 [facility] Comment on above: Performed By: #### C MP #### [facility] [address], [place] [id number] Urea nitrogen [Mass/Vol] 79 mg/dL High 6 - 23 [facility] Comment on above: Performed By: #### C MP #### [facility] [address], [place] [id number] CBCon 05-04-2020 Erythrocyte distribution width (RBC) [Ratio] 15.9 % High 11.5 - 14.5 [facility] Comment on above: Performed By: #### P R12 #### [facility] [address] [place] [address] Hematocrit (Bld) [Volume fraction] 34.4 % Low 36.0 - 46.0 [facility] Comment on above: Performed By: #### P R12 #### [facility] [address] [place] [address] Hemoglobin (Bld) [Mass/Vol] 11.2 g/dL Low 12.0 - 16.0 [facility] Comment on above: Performed By: #### P R12 #### [facility] [address] [place] [address] MCHC (RBC) [Mass/Vol] 32.6 g/dL Normal 32.0 - 36.0 [facility] Comment on above: Performed By: #### P R12 #### [facility] [address] [place] [address] MCV (RBC) [Entitic vol] 90 fL Normal 80 - 100 [facility] Comment on above: Performed By: #### P R12 #### [facility] [address] [place] [address] Platelets (Bld) [#/Vol] 382 10*3/uL Normal 150 - 450 [facility] Comment on above: Performed By: #### P R12 #### [facility] [address] [place] [address] RBC (Bld) [#/Vol] 3.82 x10E12/L Low 4.00 - 5.20 [facility] Comment on above: Performed By: #### P R12 #### [facility] [address] [place] [address] WBC (Bld) [#/Vol] 22.3 10*3/uL High 4.4 - 11.3 [facility] Comment on above: Performed By: #### P R12 #### [facility] [address] [place] [address] CREATINE KINASEon 05-04-2020 CK [Catalytic activity/Vol] 51 U/L Normal 0 - 215 [facility] Comment on above: Performed By: #### C BC #### [facility] [address] [place], [place] [id number] Consult-Endocrinologyon 04-20 Consult-Endocrinology Service: Service: Endocrinology Consult: [...] penicillins: Rash Objective: Objective Information: T PRBPSpO2 Value36.71761907/9097% Date/Time05/04 8: 8: 8: 8: 8:26 Range(36.2C [...] laboratory results: Complete Blood Count Trending View [id number] 05:26:00 03-May-2020 05:31:00 White Blood Cell Count22.3 H 22.9 H Red Blood Cell Count3.82 L 3.81 L HGB11.2 L 11.1 L HCT34.4 L 33.8 L MCV90 89 MCHC32.6 32.8 OVC101 405 RDW-CV15.9 H 16.0 H Basic Metabolic Panel 04-May-2020 05:26:00 ResultValue Glucose, Serum 90 NA 137 K 3.6 CL 101 Bicarbonate, Serum 27 Anion Gap, Serum 13 BUN 79 H CREAT 2.39 H GFR-Non 20 A GFR- 24 A Calcium, Serum 9.8 Urinalysis with Culture if Indicated 03-May-2020 11:12:00 ResultValue Color, Urine STRAW Reference Range: STRAW,YELLOW Appearance, Urine CLEAR Specific Wall, Urine 1.008 pH, Urine 6.0 Protein, Urine [...] Lactate, Level 1.8 Culture, Blood Trending View [id number] 10:49:00 03-May-2020 10:48:00 Culture, BloodNEGATIVE TO DATE, CULTURE IN PROGRESS. NEGATIVE TO DATE, CULTURE IN PROGRESS. Comprehensive Metabolic Panel Trending View [id number]-Mal-0064 05:31:00 02-May-2020 02:22:00 Glucose, Serum93 184 H NA138 138 K3.3 L 4.2 CL101 101 Bicarbonate, Serum26 26 Anion Gap, Serum14 15 BUN86 H 84 H CREAT2.39 H 2.31 H GFR-Non Avzdidpg10 A 20 A GFR- Pqwmfrdf73 A 24 A Calcium, Serum10.8 H 12.3 [...] 2020 4:41PM] Consult Status: Consult Order ID: [id number] Problem/Assessment/Plan: Impression 1: Hypercalcemia and CKD ANGELA [...] Updated: 26-May-2020 16:04 by Alexander Gregory) Normal [facility] Consult-Urologyon 05-04-2020 Consult-Urology Service: Service: [...] penicillins: Rash Objective: Objective Information: T PRBPSpO2 Value36.15490153/8593% Date/Time05/04 14: 14: 14: 14: 14:39 Range(36.2C - 36.7C ) (71 - 93 ) (16 - 18 ) (139 - 156 )/ (85 - 92 ) (92% - 97% ) Pain reported at 05/04 8:26: 0 = None ---- Intake and Output ----- [facility] May 04, 2020 2:00 [id number] May 04, 2020 6:00 [id number] May 03, 2020 10:00 [id number] The Intake and Output Totals for the last 24 hours are: [facility] [id number] ---Intake--- IV Fluids Infusion: 1200 mL Infusion: [...] results: PT + INR, Plasma Trending View [id number] 05:26:00 03-May-2020 10:50:00 Prothrombin Time, Qrbref28.5 H 33.4 H International Normalized Ratio, Plasma2.3 [...] Reference Range: STRAW,YELLOW Appearance, Urine CLEAR Specific Wall, Urine 1.008 pH, Urine 6.0 Protein, Urine [...] RA Area A4C: 16.4 cm2 RA Major [place] A4C: 5.0 cm M-MODE MEASUREMENTS: Normal Ranges: [...] 1.2 m/s (0.6-0.9m/s) PV Max P.2 mmHg [id number] Tremayne Mcleod MD Electronically signed on 05/02/2020 at 1:08:29 PM Final Echocardiogram [May 02 2020 1:08PM] Impression: No evidence of hydronephrosis. Nonobstructing calculus at the upper pole. Complex cyst with calcification given hypodensity at the level of the renal hilum for which nonemergent CT would be recommended for further evaluation. Ultrasound Renal Bilateral [May 02 2020 12:57PM] Consult Status: Consult Order ID: [id number] Problem List: Admitting Dx: Hypercalcemia: Additional Dx: Change in mental status: Onset Date: 04-May-2020 Electronic Signatures: Alvin Sawyer) (Signed 04-May-2020 17:33) Authored: Service, History of Present Illness, Allergies, Objective, Assessment/Recommendatio ns, Note Completion Last Updated: 04-May-2020 17:33 by Alvin Sawyer) [facility] Daily Progress Note-Infectio us Diseaseon 05-04-2020 Daily [...] 3. Objective Data: Objective Information: T PRBPSpO2 Value36.81593840/8593% Date/Time05/04 14: 14: 14: 14: 14:39 Range(36.2C - 36.3C ) (71 - 93 ) (18 - 18 ) (139 - 156 )/ (85 - 90 ) (92% - 97% ) Pain reported at 05/04 8:26: 0 = None ---- Intake and Output ----- Mn/Dy/[facility] May 04, 2020 2:00 [id number] May 04, 2020 6:00 [id number] May 03, 2020 10:00 [id number] The Intake and Output Totals for the last 24 hours are: IntakeOutputNet [id number] Recent Lab Results: Results: CBC: 05/04/2020 05:26 [...] Updated: 04-May-2020 19:38 by Di Estrada () [facility] Daily Progress Note-Medicine on 05-04-2020 Daily Progress Note-Medicine Service: Medicine Subjective Data: LINDA PERALTA is a 75 year old Female who is Hospital Day # 3. Patient was laying in bed overall feeling little bit better but still has bilateral leg weakness developed urinary retention has a Jarrell catheter denies any chest pain no abdominal pain. Objective Data: Objective Information: T PRBPSpO2 Value36.23992717/9097% Date/Time05/04 8: 8: 8: 8: 8:26 Range(36.2C - 36.9C ) (71 - 93 ) (16 - 18 ) (139 - 162 )/ (89 - 95 ) (92% - 97% ) Highest temp of 36.9 C was recorded at 05/03 14:24 Pain reported at 05/04 8:26: 0 = None ---- Intake and Output ----- Mn/Dy/Year TimeIntakeOutputNet May 04, 2020 6:00 [id number] May 03, 2020 10:00 [id number] May 03, 2020 2:00 [id number] The Intake and Output Totals for the last 24 hours are: [facility] [id number] Physical Exam by System: Constitutional: Well developed, [...] Last Updated: 04-May-2020 12:20 by Nani Stanley) [facility] Daily Progress Note-Nephrolo gyon 05-04-2020 Daily Progress Note-Nephrology Service: Nephrology Subjective Data: LINDA PERALTA is a 75 year old Female who is Hospital Day # 3. renal function stable, remains on fluids, appetite decent but doesn't like the food, feeling better. Objective Data: Objective Information: T PRBPSpO2 Value36.86599293/8593% Date/Time05/04 14: 14: 14: 14: 14:39 Range(36.2C - 36.7C ) (71 - 93 ) (16 - 18 ) (139 - 156 )/ (85 - 92 ) (92% - 97% ) Pain reported at 05/04 8:26: 0 = None ---- Intake and Output ----- Mn/Dy/Year TimeIntakeOutputNet May 04, 2020 2:00 [id number] May 04, 2020 6:00 [id number] May 03, 2020 10:00 [id number] The Intake and Output Totals for the last 24 hours are: IntakeOutputNet [id number]\ Constitutional: Alert, in no acute distress HEENT: [...] partial nephrectomy, DVT/PE who was initially at [place] for AMS, hypercalcemia and hypotension now transferred here. 1. ANGELA on CKD: previously hypotensive at [place], now hypertensive, also CRS as pt is [...] Updated: 04-May-2020 15:19 by Leigh Billy) Normal [facility] Daily Progress Note-Neurolog yon 05-04-2020 [...] better. Objective Data: Objective Information: T PRBPSpO2 Value36.22570847/8593% Date/Time05/04 14: 14: 14: 14: 14:39 Range(36.2C - 36.7C ) (71 - 93 ) (16 - 18 ) (139 - 156 )/ (85 - 92 ) (92% - 97% ) Pain reported at 05/04 8:26: 0 = None ---- Intake and Output ----- Mn/Dy/Year TimeIntakeOutputNet May 04, 2020 2:00 [id number] May 04, 2020 6:00 [id number] May 03, 2020 10:00 [id number] The Intake and Output Totals for the last 24 hours are: IntakeOutputNet [id number] Physical Exam by System: Neurological: The patient [...] kidney to her brother Sarcoidosis History of Wharton's disease Gout Chronic kidney disease Hyperlipidemia Atopic [...] Updated: 04-May-2020 16:25 by Vicky Boyd) Normal [facility] Discharge Planning [id number] 0 05-04-2020 Discharge Planning Note2 Discharge Planning: Planned Dispositionskilled/rehab /extended care [facility] > [address]no [place] of Choice Explainedyes Visit [facility]) Is the Patient Being Discharged on an Opioidno Anticipated Discharge [id number] Discharge Planning 05/04/2020 1229 TCC PATIENT WAS TRANSFERRED FROM [facility] TO [facility] ON MAY 01. PER DR. STANLEY, PATIENT WAS AT [place] FOR 9 DAYS BEFORE SHE TRANSFERRED TO [facility]. PATIENT'S DX: HYPERCALCEMIA, CHANGED MENTAL STATUS, ANGELA, PNEUMONIA, URINARY RETENTION AND LEUKOCYSTOSIS. PT HAS BEEN ORDERED TO EVALUATE. I MET WITH THE PATIENT WHO STATES SHE LIVES WITH HER . AICHA, THE RN CARING FOR THE PATIENT, STATES THAT THE IS IN [facility] AND HAS CA WITH METS. THE PATIENT STATES SHE IS INDEPENDENT WITH ADLS. THE PATIENT CAN COOK, BUT HER DAUGHTER DOES THE CLEANING AND LAUNDRY. PATIENT DOES HAVE A WALKER. DAUGHTER WILL TAKE TO MD APPOINTMENTS. THE PATIENT STATES THAT SHE HAS HHC WITH [place] AND HER PREFERENCE IS TO DC HOME AND CONTINUE SERVICES WITH [facility]. OLY, THE PCN, IS AWARE. [facility] WILL CONTINUE TO FOLLOW. TALIA JAMES RN 05/04/20 2:43 pcn- Notified by [facility]-talia that patient was previously active with [facility]. Provided home care list to from [facility] directory that includes agencies that are within [facility], patients insurance, meets patients medical needs, and in discharge zip code that patient prefers, and identifies each agencies [facility] star rating. Resumption of care referral submitted to [facility] and is currently under review. will await final d/c orders. SHANE Romero 05/05/2020 0950 [facility] PT/OT STILL NEEDS TO EVALUATE PATIENT. AICHA, THE RN CARING FOR THE PATIENT, STATES THAT THE WAS TO DC YESTERDAY OR TODAY FROM [facility] PER THE DAUGHTER. SHE IS HELPING CARE FOR HIM AND PLANS TO BE THERE WHEN THE MOM DC. AICHA IS AWARE I WILL TALK WITH THE DAUGHTER AND PATIENT AGAIN ONCE PT/OT EVALUTES. DR. SOUTH IS AWARE THAT PATIENT IS ACTIVE WITH [facility] AND AT THIS TIME, DC PLAN IS HOME WITH CONTINUED SERVICES WITH [facility]. AICHA ALSO INFORMED ME THAT PATIENT'S POTASSIUM WAS 2.9 TODAY AND PO SUPPLEMENTS ARE BEING GIVEN. PATIENT STILL HAS EDEMA FROM [place]. PATIENT IS ON IV LASIX WELL. [facility] WILL CONTINUE TO FOLLOW. TALIA JAMES RN 05/05/2020 1523 T[facility] PT [facility] IS 11. I WENT TO REVISIT PATIENT AND SHE IS SLEEPING. I CALLED THE DAUGHTER AND POA, SOULEYMANE NAGI. SOULEYMANE STATES THAT HER DAD IS STILL IN [facility] AND IS NOT BEING DC TODAY AND MAY BE THERE A FEW MORE DAYS. THERAPY EVALUATE DISCUSSED WITH SOULEYMANE AND SHE STATES THAT SHE FEELS THE PATIENT NEEDS TO GO TO REHAB AT [place] UNTIL SHE IS ABLE TO BE MORE INDEPENDENT WITH MAYBE A 1 PERSON ASSIST. SHE HAS REQUESTED [place] [place] [facility] SHE HAS BEEN THERE BEFORE AND [address] CHO[address] [facility] [place]. DR. SOUTH IS AWARE OF DC PLAN. OLY, THE PCN, IS AWARE WELL AND WILL SEND TO [facility] [place] [facility] FOR THEM TO EVALUATE TO SEE IF PATIENT IS APPROPRIATE FOR REHAB AND THEN PRECERT WILL BE NEEDED. [facility] WILL CONTINUE TO FOLLOW. TALIA JAMES RN 05/05/20 3:51 pcn- per talia-tcc pt. will need snf setting on d/c, she has spoken to dtr. who is requesting [facility]/snf unit as she has been there in the past, [facility] [place], referral sent via [facility] to [facility]. SHANE Romero 05/05/20 4:15 pcn-spoke with admissions at [facility] who states they are full at this time and have no beds available. referral sent to dtr's [facility] choice [facility] [place]. spoke with dtrAlaina comer to provide update. [...] DAYS. TALIA JAMES RN 05/07/20 12:50 [facility] [place] has received ins. precert and able to [...] TCC 05/08/20 2:05 pcn-[facility] [place] they have received ins. precert and able to accept pt. pt. will d/c this date to [facility] [place] [facility] at 5:30 pm via [facility] wheelchair van. spoke with pt. and dtr. who are aware and in agreement to transport and cost of transportation. SHANE Romero Assessment: Discharge Planning Assessment [id number] Primary Contact Name and NumberSouleymane Lopez - [phone] (daughter)(1) Stated Reason for Admissionpatient states I fell. (1) Arrived Fromhospital (1) Readmission Within the Last 30 Daysno previous admission in last 30 days Lives Withspouse(1) Living Arrangementshouse(1) Equipment Currently Used at [facility] Resource/Environmental Concernsnone(1) [place]/services Services Anticipated at [facility](1) Anticipated Changes Related to Illnessnone Equipment Needed After Dischargenone Anticipated Discharge Facility/Level of Care [facility] Care - Resumed Visit Tranportation Needed from [facility] Electronic Signatures: Anette Roy (COOR) (Signed 07-May-2020 14:36) Authored: Discharge Planning Oly Leon (PCN) (Signed 08-May-2020 14:07) Authored: Discharge Planning Emmie James (COOR) (Signed 06-May-2020 13:59) Authored: Discharge Planning, Assessment Magnus Coley (COOR) (Signed 08-May-2020 14:08) Authored: Discharge Planning, Assessment Last Updated: 08-May-2020 14:08 by Magnus Coley (COOR) References: 1. Data Referenced From Patient Profile - Adult v2 02-May-2020 00:48 Normal [facility] EMR ADDONon 05-04-2020 ADDON CONFIRMATION REQUEST REC'D Normal [facility] Comment on above: Performed By: #### P R12 #### [facility] [address] [place] [address] NR MRI L-SPINE WOon 05-05-19 21 NR MRI L-SPINE WO Patient Name: LINDA PERALTA STUDY: MRI T-SPINE WO; MRI L-SPINE WO; 05/04/2020 1:26 pm INDICATION: Urinary retention bilateral leg weakness. COMPARISON: CT chest abdomen and pelvis from 05/03/2020 ACCESSION NUMBER(S): [id number]; [id number] ORDERING CLINICIAN: NANI STANLEY TECHNIQUE: Sagittal T1 [...] pelvis. Electronically signed by: BRADLEY BECERRA MD [facility] NR MRI T-SPINE WOon 05-05-19 NR MRI T-SPINE WO Patient Name: LINDA PERALTA STUDY: MRI T-SPINE WO; MRI L-SPINE WO; 05/04/2020 1:26 pm INDICATION: Urinary retention bilateral leg weakness. COMPARISON: CT chest abdomen and pelvis from 05/03/2020 ACCESSION NUMBER(S): [id number]; [id number] ORDERING CLINICIAN: NANI STANLEY TECHNIQUE: Sagittal T1 [...] Electronically signed by: BRADLEY BECERRA MD Normal [facility] PROTEIN ELECTROPHORESIS + IM MUNOFIXATION, SERUMon 05-04-2020 GAMMA GLOBULIN 0.9 g/dL Normal 0.5 - 1.4 [facility] Comment on above: Performed By: #### I FE2 ####[facility] [place], [place] [id number] [place] [address] Albumin [Mass/Vol] 3.1 g/dL Low 3.4 - 5.0 [facility] Comment on above: Performed By: #### I FE2 ####[address] [id number] [place] [address] ALPHA 1 GLOBULIN 0.3 g/dL Normal 0.2 - 0.6 [facility] Comment on above: Performed By: #### I FE2 ####[address] [id number] [place] [address] ALPHA 2 GLOBULIN 0.6 g/dL Normal 0.4 - 1.1 [facility] Comment on above: Performed By: #### I FE2 ####[address] [id number] [place] [address] BETA GLOBULIN 0.6 g/dL Normal 0.5 - 1.2 [facility] Comment on above: Performed By: #### I FE2 ####[address] [id number] [place] [address] PT/INRon 05-04-2020 INR Coag (PPP) [Relative time] 2.3 {INR} High 0.9 - 1.1 [facility] Comment on above: Performed By: #### C MP #### [address] [id number] PT Coag (PPP) [Time] 27.5 s High 10.1 - 13.3 [facility] Comment on above: Performed By: #### C MP #### [address] [id number] BLOOD CULTURE, BACTERIALon 0 05-03-2020 BLOOD CULTURE, BACTERIAL PATIENT: LINDA PERALTA LOCATION: [facility] E BILL#: [id number] : 41 AGE: SEX: F ORDERED BY: NANI STANLEY SOURCE: Blood COLLECTED: 05/03/20 10:49 ANTIBIOTICS AT [place].: RECEIVED : 05/03/20 21:14 SITE: R E S U L T S BLOOD CULTURE, BACTERIAL FINAL 05/08/20 21:42 No Growth at 1 days No Growth at 2 days No Growth at 3 days No Growth at 4 days NO GROWTH - FINAL REPORT Normal [facility] Comment on above: Performed By: #### C A #### [address] [id number] BLOOD CULTURE, BACTERIAL PATIENT: LINDA PERALTA LOCATION: [address] BILL#: [id number] : 41 AGE: SEX: F ORDERED BY: NANI STANLEY SOURCE: Blood COLLECTED: 05/03/20 10:48 ANTIBIOTICS AT [place].: RECEIVED : 05/03/20 21:08 SITE: R E S U L T S BLOOD CULTURE, BACTERIAL FINAL 05/08/20 21:42 No Growth at 1 days No Growth at 2 days No Growth at 3 days No Growth at 4 days NO GROWTH - FINAL REPORT Normal [facility] Comment on above: Performed By: #### C A #### [address] [id number] CBCon 05-03-2020 Erythrocyte distribution width (RBC) [Ratio] 16.0 % High 11.5 - 14.5 [facility] Comment on above: Performed By: #### C MP #### [address] [id number] Hematocrit (Bld) [Volume fraction] 33.8 % Low 36.0 - 46.0 [facility] Comment on above: Performed By: #### C MP #### [address] [id number] Hemoglobin (Bld) [Mass/Vol] 11.1 g/dL Low 12.0 - 16.0 [facility] Comment on above: Performed By: #### C MP #### [address] [id number] MCHC (RBC) [Mass/Vol] 32.8 g/dL Normal 32.0 - 36.0 [facility] Comment on above: Performed By: #### C MP #### [address] [id number] MCV (RBC) [Entitic vol] 89 fL Normal 80 - 100 [facility] Comment on above: Performed By: #### C MP #### [address] [id number] Platelets (Bld) [#/Vol] 405 10*3/uL Normal 150 - 450 [facility] Comment on above: Performed By: #### C MP #### [address] [id number] RBC (Bld) [#/Vol] 3.81 x10E12/L Low 4.00 - 5.20 [facility] Comment on above: Performed By: #### C MP #### [address] [id number] WBC (Bld) [#/Vol] 22.9 10*3/uL High 4.4 - 11.3 [facility] Comment on above: Performed By: #### C MP #### [address] [id number] COMPREHENSIVE PANELon 2020 Albumin [Mass/Vol] 2.7 g/dL Low 3.4 - 5.0 [facility] Comment on above: Performed By: #### C MP #### [address] [id number] ALP [Catalytic activity/Vol] 67 U/L Normal 33 - 136 [facility] Comment on above: Performed By: #### C MP #### [address] [id number] ALT [Catalytic activity/Vol] 48 U/L High 7 - 45 [facility] Comment on above: Result Comment: Liz ents treated with Sulfasalazine may generate falsely decreased results for ALT. Performed By: #### C MP #### [address] [id number] Anion gap [Moles/Vol] 14 mmol/L Normal 10 - 20 [facility] Comment on above: Performed By: #### C MP #### [address] [id number] AST [Catalytic activity/Vol] 16 U/L Normal 9 - 39 [facility] Comment on above: Performed By: #### C MP #### [address] [id number] Bilirubin [Mass/Vol] 0.6 mg/dL Normal 0.0 - 1.2 [facility] Comment on above: Performed By: #### C MP #### [address] [id number] Calcium [Mass/Vol] 10.8 mg/dL High 8.6 - 10.3 [facility] Comment on above: Performed By: #### C MP #### [address] [id number] Chloride [Moles/Vol] 101 mmol/L Normal 98 - 107 [facility] Comment on above: Performed By: #### C MP #### [address] [id number] Creatinine [Mass/Vol] 2.39 mg/dL High 0.50 - 1.05 [facility] Comment on above: Performed By: #### C MP #### [address] [id number] GFR- AM. 24 mL/min/1.73m2 Abnormal >60 [facility] Comment on above: Result Comment: CALC ULATIONS OF ESTIMATED GFR ARE PERFORMED USING THE MDRD STUDY EQUATION FOR THE IDMS-TRACEABLE CREATININE METHODS. CLIN CHEM 2007;53:766-72 Performed By: #### C MP #### [address] [id number] GFR-NON AM. 20 mL/min/1.73m2 Abnormal >60 [facility] Comment on above: Performed By: #### C MP #### [address] [id number] Glucose [Mass/Vol] 93 mg/dL Normal 74 - 99 [facility] Comment on above: Performed By: #### C MP #### [address] [id number] HCO3 (Bld) [Moles/Vol] 26 mmol/L Normal 21 - 32 [facility] Comment on above: Performed By: #### C MP #### [address] [id number] Potassium [Moles/Vol] 3.3 mmol/L Low 3.5 - 5.3 [facility] Comment on above: Performed By: #### C MP #### [address] [id number] Protein [Mass/Vol] 4.8 g/dL Low 6.4 - 8.2 [facility] Comment on above: Performed By: #### C MP #### [address] [id number] Sodium [Moles/Vol] 138 mmol/L Normal 136 - 145 [facility] Comment on above: Performed By: #### C MP #### [address] [address] [id number] Urea nitrogen [Mass/Vol] 86 mg/dL High 6 - 23 [facility] Comment on above: Performed By: #### C MP #### [address] [id number] CHEST ABDOMEN PELVIS WO C ONTRASTon 05-03-2020 CT CHEST ABDOMEN PELVIS WO CONTRAST Patient Name: LINDA PERALTA STUDY: CT CHEST ABDOMEN PELVIS WO CONTRAST; 05/03/2020 9:48 am INDICATION: pneumonia abnormal renal ultrasound hx of solitary kidney. COMPARISON: None. ACCESSION NUMBER(S): [id number] ORDERING CLINICIAN: NANI STANLEY TECHNIQUE: CT of the chest, abdomen and pelvis was performed. Contiguous axial images were obtained at 3 mm slice thickness through the chest, abdomen and pelvis. Coronal and sagittal reconstructions at 3 mm slice thickness were performed. No intravenous or oral contrast agents were administered. FINDINGS: Please note that the study is limited without intravenous contrast. CHEST: LUNG/PLEURA/LARGE AIRWAYS: [id number] left and trace right pleural effusion. No [...] above. Electronically signed by: JARED GALLARDO MD [facility] Consult - Neuroon 05-03-2020 Consult - Neuro [...] The patient also has a history of Wharton's disease Orthostatic hypotension She was on B12 [...] penicillins: Rash Objective: Objective Information: T PRBPSpO2 [id number]/9593% Date/Time05/02 19: 19: 19: 19: 19:16 Range(36.2C [...] fasciculations or involuntary movements are seen. On [place] testing, there is no pronation or drift. [...] RA Area A4C: 16.4 cm2 RA [place] A4C: 5.0 cm M-MODE MEASUREMENTS: Normal Ranges: [...] 1.2 m/s (0.6-0.9m/s) PV Max P.2 mmHg [id number] Tremayne Mcleod MD Electronically signed on 05/02/2020 [...] with you Consult Status: Consult Order ID: [id number] Electronic Signatures: Vicky Boyd) (Signed 02-May-2020 23:13) Authored: Service, History of Present Illness, Allergies, Objective, Assessment/Recommendatio ns, Note Completion Last Updated: 02-May-2020 23:13 by Vicky Boyd) [facility] Consult-Infectious Diseaseon 05-03-2020 Consult-Infectious Disease Service: Service: [...] penicillins: Rash Consult Status: Consult Order ID: [id number] Electronic Signatures: Di Estrada () (Signed 04-May-2020 06:05) Authored: Service, History of Present Illness, Allergies, Assessment/Recommendatio ns, Note Completion Last Updated: 04-May-2020 06:05 by Di Estrada () Normal [facility] Daily Progress Note-Medicine on 05-03-2020 Daily Progress Note-Medicine Service: Medicine Subjective Data: LINDA PERALTA is a 75 year old Female who is Hospital Day # 3. Patient laying in bed has fatigue denies any pain no chest pain or shortness of breath has nausea but no vomiting. Objective Data: Objective Information: T PRBPSpO2 Value36.37690594/8596% Date/Time05/03 7: 7: 7: 7: 7:33 Range(36.3C - 37.3C ) (94 - 95 ) (17 - 18 ) (132 - 176 )/ (85 - 106 ) (93% - 96% ) Highest temp of 37.3 C was recorded at 05/02 23:10 Pain reported at 05/03 10:44: 0 = None ---- Intake and Output ----- Mn/Dy/Year TimeIntakeOutputNet May 03, 2020 6:00 [id number] May 02, 2020 2:00 [id number] The Intake and Output Totals for the last 24 hours are: IntakeOutputNet [id number] Physical Exam by System: Constitutional: Well developed, [...] Mild to moderately elevated pulmonary artery pressure. [id number] Tremayne Mcleod MD Electronically signed on 05/02/2020 [...] Last Updated: 03-May-2020 11:18 by Nani Stanley) [facility] Daily Progress Note-Nephrolo gyon 05-03-2020 Daily Progress Note-Nephrology Service: Nephrology Subjective Data: LINDA PERALTA is a 75 year old Female who is Hospital Day # 3. renal function stable, Ca better, BP better. Objective Data: Objective Information: T PRBPSpO2 Value36.53441041/8596% Date/Time05/03 7: 7: 7: 7: 7:33 Range(36.3C - 37.3C ) (94 - 95 ) (17 - 18 ) (132 - 176 )/ (85 - 106 ) (93% - 96% ) Highest temp of 37.3 C was recorded at 05/02 23:10 Pain reported at 05/03 10:44: 0 = None ---- Intake and Output ----- [facility]Dy[facility] May 03, 2020 6:00 [id number] May 02, 2020 2:00 [id number] The Intake and Output Totals for the last 24 hours are: IntakeOutputNet [id number] Constitutional: Alert, in no acute distress HEENT: [...] partial nephrectomy, DVT/PE who was initially at [place] for AMS, hypercalcemia and hypotension now transferred here. 1. ANGELA on CKD: previously hypotensive at [facility] [place], now hypertensive, also CRS as pt is [...] Last Updated: 03-May-2020 12:33 by Leigh Billy) [facility] Daily Progress Note-Neurolog yon 05-03-2020 Daily Progress Note-Neurology Service: Neurology Subjective Data: LINDA PERALTA is a 75 year old Female who is Hospital Day # 3. The patient examined feeling weak all over Overall intake output He is urinated Maalox did not help. She did not want Zofran or Phenergan. Objective Data: Objective Information: T PRBPSpO2 Value36.13549788/9296% Date/Time05/03 19: 19: 19: 19: 19:16 Range(36.3C - 37.3C ) (89 - 95 ) (16 - 18 ) (132 - 162 )/ (85 - 95 ) (93% - 96% ) Highest temp of 37.3 C was recorded at 05/02 23:10 Pain reported at 05/03 10:44: 0 = None ---- Intake and Output ----- Mn/Dy/Year TimeIntakeOutputNet May 03, 2020 2:00 [id number] May 03, 2020 6:00 [id number] The Intake and Output Totals for the last 24 hours are: IntakeOutputNet [id number] Physical Exam by System: Neurological: The patient [...] Reference Range: STRAW,YELLOW Appearance, Urine CLEAR Specific Wall, Urine 1.008 pH, Urine 6.0 Protein, Urine [...] Level 1.8 Comprehensive Metabolic Panel Trending View [id number] 05:31:00 02-May-2020 02:22:00 Glucose, Serum93 184 H NA138 138 K3.3 L 4.2 CL101 101 Bicarbonate, Serum26 26 Anion Gap, Serum14 15 BUN86 H 84 H CREAT2.39 H 2.31 H GFR-Non Knuxanqj06 A 20 A GFR- Hnssctcv82 A 24 A Calcium, Serum10.8 H 12.3 [...] Updated: 03-May-2020 20:53 by Vicky Boyd) Normal [facility] FOLATE, SERUMon 05-03-2020 Folate [Mass/Vol] 13.5 ng/mL Normal >5.0 [facility] Comment on above: Result Comment: Low <3.4 Borderline 3.4-5.0 Normal >5.0 . Patients receiving more than 5 mg/day of biotin may have interference in test results. A sample should be taken no sooner than eight hours after previous dose. Contact the testing laboratory for additional information. Performed By: #### C MP #### [address] [id number] LACTATEon 05-03-2020 Lactate [Moles/Vol] 1.8 mmol/L Normal 0.4 - 2.0 [facility] Comment on above: Result Comment: Nadia puncture immediately after or during the administration of Metamizole may lead to falsely low results. Testing should be performed immediately prior to Metamizole dosing. Performed By: #### C BC #### [facility] [address] [place], [place] [id number] PARATHYROID HORMONE,INTACTon 05-03-2020 PARATHYROID HORMONE,INTACT 19.6 pg/mL Normal 12.0 - 88.0 [facility] Comment on above: Performed By: #### P TH ####[facility] [place], [place] [id number] PT/INRon 05-03-2020 INR Coag (PPP) [Relative time] 2.8 {INR} High 0.9 - 1.1 [facility] Comment on above: Performed By: #### P TINR ####[facility] [place] [address] [id number] PT Coag (PPP) [Time] 33.4 s High 10.1 - 13.3 [facility] Comment on above: Performed By: #### P TINR ####[facility] [place] [address] [id number] UA MICROSCOPICon 05-03-2020 MUCUS 1+ /LPF Normal [facility] Comment on above: Performed By: #### P R12 #### [facility] [address] [place] [address] RBC 9 /HPF Abnormal 0-5 [facility] Comment on above: Performed By: #### P R12 #### [facility] [address] [place] [address] SQUAMOUS EPITH. CELLS 2 /HPF Normal [facility] Comment on above: Performed By: #### P R12 #### [facility] [address] [place] [address] WBC 7 /HPF Abnormal 0-5 [facility] Comment on above: Performed By: #### P R12 #### [facility] [address] [place] [address] URINALYSISon 05-03-2020 Appearance (U) Canceled Normal [facility] Comment on above: Order Comment: TEST URINALYSIS WAS CANCELLED, 05/03/2020 14:06 DUPLICATE ORDER. Performed By: #### U A ####[address] [id number] ASCORBIC ACID Canceled Normal [facility] Comment on above: Order Comment: TEST URINALYSIS WAS CANCELLED, 05/03/2020 14:06 DUPLICATE ORDER. Result Comment: Conc entrations > = 20 mg/dL of ascorbic acid can be expected to cause strong interference in the reactions testing for glucose, nitrite and blood. It is recommended to discontinue Vitamin C administration and retest in 10 hours. Performed By: #### U A ####[address] [id number] Bilirubin (U) [Mass/Vol] Canceled Normal [facility] Comment on above: Order Comment: TEST URINALYSIS WAS CANCELLED, 05/03/2020 14:06 DUPLICATE ORDER. Performed By: #### U A ####[address] [id number] BLOOD Canceled Normal [facility] Comment on above: Order Comment: TEST URINALYSIS WAS CANCELLED, 05/03/2020 14:06 DUPLICATE ORDER. Performed By: #### U A ####[address] [id number] Color (U) Canceled Normal [facility] Comment on above: Order Comment: TEST URINALYSIS WAS CANCELLED, 05/03/2020 14:06 DUPLICATE ORDER. Performed By: #### U A ####[address] [id number] Glucose [Mass/Vol] Canceled Normal [facility] Comment on above: Order Comment: TEST URINALYSIS WAS CANCELLED, 05/03/2020 14:06 DUPLICATE ORDER. Performed By: #### U A ####[address] [id number] Ketones Ql (U) Canceled Normal [facility] Comment on above: Order Comment: TEST URINALYSIS WAS CANCELLED, 05/03/2020 14:06 DUPLICATE ORDER. Performed By: #### U A ####[address] [id number] Leukocyte esterase Test strip Ql (U) Canceled Normal [facility] Comment on above: Order Comment: TEST URINALYSIS WAS CANCELLED, 05/03/2020 14:06 DUPLICATE ORDER. Performed By: #### U A ####[address] [id number] Nitrite Ql (U) Canceled Normal [facility] Comment on above: Order Comment: TEST URINALYSIS WAS CANCELLED, 05/03/2020 14:06 DUPLICATE ORDER. Performed By: #### U A ####[address] [id number] pH (Bld) Canceled Normal [facility] Comment on above: Order Comment: TEST URINALYSIS WAS CANCELLED, 05/03/2020 14:06 DUPLICATE ORDER. Performed By: #### U A ####[address] [id number] Protein (U) [Mass/Vol] Canceled Normal [facility] Comment on above: Order Comment: TEST URINALYSIS WAS CANCELLED, 05/03/2020 14:06 DUPLICATE ORDER. Performed By: #### U A ####[address] [id number] Specific gravity (U) [Rel density] Canceled Normal [facility] Comment on above: Order Comment: TEST URINALYSIS WAS CANCELLED, 05/03/2020 14:06 DUPLICATE ORDER. Performed By: #### U A ####[address] [id number] Urobilinogen Qn (U) Canceled Normal [facility] Comment on above: Order Comment: TEST URINALYSIS WAS CANCELLED, 05/03/2020 14:06 DUPLICATE ORDER. Performed By: #### U A ####[address] [id number] URINALYSIS WITH CULTURE IF I NDICATEDon 05-03-2020 Appearance (U) CLEAR Normal CLEAR [facility] Comment on above: Performed By: #### C MP #### [address] [id number] Bilirubin (U) [Mass/Vol] Negative Normal NEGATIVE [facility] Comment on above: Performed By: #### C MP #### [address] [id number] BLOOD SMALL(1+) Abnormal NEGATIVE [facility] Comment on above: Performed By: #### C MP #### [address] [id number] Color (U) STRAW Normal STRAW,YELLOW [facility] Comment on above: Performed By: #### C MP #### [address] [id number] Glucose [Mass/Vol] Negative Normal NEGATIVE [facility] Comment on above: Performed By: #### C MP #### [address] [id number] Ketones Ql (U) Negative Normal NEGATIVE [facility] Comment on above: Performed By: #### C MP #### [address] [id number] Leukocyte esterase Test strip Ql (U) SMALL (1+) Abnormal NEGATIVE [facility] Comment on above: Performed By: #### C MP #### [address] [id number] Nitrite Ql (U) Negative Normal NEGATIVE [facility] Comment on above: Performed By: #### C MP #### [address] [id number] pH (Bld) 6.0 Normal 5.0 - 8.0 [facility] Comment on above: Performed By: #### C MP #### [address] [id number] Protein (U) [Mass/Vol] Negative Normal NEGATIVE [facility] Comment on above: Performed By: #### C MP #### [address] [id number] Specific gravity (U) [Rel density] 1.008 Normal 1.005 - 1.035 [facility] Comment on above: Performed By: #### C MP #### [address] [id number] Urobilinogen Qn (U) <2.0 Normal 0.0 - 1.9 [facility] Comment on above: Performed By: #### C MP #### [address] [place] [id number] Lab Specimen Source Normal [facility] Comment on above: Performed By: #### C MP #### [address] [id number] Performed By: #### P R12 #### [facility] [address] [place] [address] URINE CULTURE,BACTERIALon URINE CULTURE,BACTERIAL PATIENT: LINDA PERALTA LOCATION: [address]#: [id number] : 41 AGE: SEX: F ORDERED BY: NANI STANLEY SOURCE: URINE COLLECTED: 05/03/20 11:12 ANTIBIOTICS AT [place].: RECEIVED : 05/03/20 21:18 SITE: R E S U L T S URINE CULTURE,BACTERIAL FINAL 05/04/20 14:08 NO GROWTH Normal [facility] Comment on above: Performed By: #### P R12 #### [facility] [address] [place] [id number] US CAROTID BILATERAL DUPLEXo n 05-03-2020 US CAROTID BILATERAL DUPLEX Patient Name: LINDA PERALTA STUDY: US CAROTID BILATERAL DUPLEX; 05/03/2020 10:18 am INDICATION: Change in the mental status question of strokes, gait ataxia and falls, fainting spells. COMPARISON: None. ACCESSION NUMBER(S): [id number] ORDERING CLINICIAN: VICKY BOYD FINDINGS: Duplex scan [...] Electronically signed by: VICKY BOYD MD Normal [facility] Admission Risk Screen - Adul [...] DNR-CCA Availabilityplaced on chart DNR-CCA Placed on [id number] Advanced Directive Commentno intubation [place] Fall Screen: [...] instruction; written material Cultural Considerationsnone Developmental Considerationsnone Yazidi Considerationsnone Learning Assessment (Other Learner): Other learner availableno Depression Screen: During the past month, have you often been bothered by feeling down, depressed or hopelessyes is sick (dx of [place]) During the past month, have you often had little interest or pleasure in doing thingsno Have you had any thoughts of harming anyone elseno Hodges Suicide: Risk Screen Not Applicable/Able to Answerable to be screened In the Past Month: Have you wished you were or could go to sleep and not wake upno In the Past Month: Have you had any actual thoughts of killing yourselfno Lifetime: Have you ever done, started to do, or prepared to do anything to end your lifeno Hodges Suicide Risknegative Adult Nutrition Screen: Have you [...] an injured patient at a Trauma Center ([facility]/[place] /[place]): no Vaccinations: Vaccination - Influenza Vaccination Screen: [...] 02-May-2020 01:37 by Nehemias Mercado (RN) Normal [facility] BNPon 05-02-2020 Natriuretic peptide B (Bld) [Mass/Vol] 1665 pg/mL High 0 - 99 [facility] Comment on above: Result Comment: . <1 00 pg/mL - Heart failure unlikely 100-299 pg/mL - Intermediate probability of acute heart . failure exacerbation. Correlate with clinical . context and patient history. >=300 pg/mL - Heart Failure likely. Correlate with clinical . context and patient history. BNP testing is performed using different testing methodology at [facility] than at other [facility]. Direct result comparisons should only be made within the same method. Performed By: #### C BC #### [address] [id number] C-REACTIVE PROTEINon 021 CRP [Mass/Vol] 1.41 mg/dL Abnormal [facility] Comment on above: Result Comment: REF VALUE < 1.00 Performed By: #### C MP #### [address] [id number] CALCIUMon 05-02-2020 Calcium [Mass/Vol] Canceled Normal [facility] Comment on above: Order Comment: TEST CALCIUM WAS CANCELLED, 05/02/2020 12:20 added per RN 05/02/2020 12:20. Performed By: #### C A #### [address] [id number] CALCIUM, IONIZEDon 1 CALCIUM,IONIZED 1.71 mmol/L High 1.10 - 1.33 [facility] Comment on above: Performed By: #### C MP #### [address] [id number] CBC AND DIFFERENTIALon 05-02 % AUTOMATED IMMATURE GRAN 5.6 % High 0.0 - 0.9 [facility] Comment on above: Result Comment: Linda ture Granulocyte Count (IG) includes promyelocytes, myelocytes and metamyelocytes but does not include bands. Percent differential counts (%) should be interpreted in the context of the absolute cell counts (cells/L). Performed By: #### C BC #### [address] [id number] DIFFERENTIAL SEE MANUAL DIFF Normal [facility] Comment on above: Performed By: #### C BC #### [address] [id number] Erythrocyte distribution width (RBC) [Ratio] 15.7 % High 11.5 - 14.5 [facility] Comment on above: Performed By: #### C BC #### [address] [id number] Hematocrit (Bld) [Volume fraction] 34.1 % Low 36.0 - 46.0 [facility] Comment on above: Performed By: #### C BC #### [address] [id number] Hemoglobin (Bld) [Mass/Vol] 11.2 g/dL Low 12.0 - 16.0 [facility] Comment on above: Performed By: #### C BC #### [address] [id number] MCHC (RBC) [Mass/Vol] 32.8 g/dL Normal 32.0 - 36.0 [facility] Comment on above: Performed By: #### C BC #### [address] [id number] MCV (RBC) [Entitic vol] 90 fL Normal 80 - 100 [facility] Comment on above: Performed By: #### C BC #### [address] [id number] Platelets (Bld) [#/Vol] 378 10*3/uL Normal 150 - 450 [facility] Comment on above: Performed By: #### C BC #### [address] [id number] RBC (Bld) [#/Vol] 3.81 x10E12/L Low 4.00 - 5.20 [facility] Comment on above: Performed By: #### C BC #### [address] [id number] WBC (Bld) [#/Vol] 17.9 10*3/uL High 4.4 - 11.3 [facility] Comment on above: Performed By: #### C BC #### [address] [id number] CHEST 2 VIEW PA AND LATon CHEST 2 VIEW PA AND LAT Patient Name: LINDA PERALTA STUDY: TH CHEST 2 VIEW PA AND LAT; 05/02/2020 12:49 pm INDICATION: hypoxia. COMPARISON: None. ACCESSION NUMBER(S): [id number] ORDERING CLINICIAN: NANI STANLEY FINDINGS: CARDIOMEDIASTINAL SILHOUETTE AND VASCULATURE: Cardiac size: Mild cardiomegaly Aortic shadow: Within normal limits considering technique Mediastinal contours: Within normal limits considering technique Pulmonary vasculature: The central vasculature is unremarkable LUNGS: There is opacification at the left lower lung probably from pioh-bb-jmnakezw pleural effusion and underlying atelectasis or consolidation. [...] Electronically signed by: ALBERTO HARRIS MD Normal [facility] COAGULATION SCREENon 021 aPTT Coag (Bld) [Time] 25 s Normal 25 - 35 [facility] Comment on above: Result Comment: THE APTT IS NO LONGER USED FOR MONITORING UNFRACTIONATED HEPARIN THERAPY. FOR MONITORING HEPARIN THERAPY, USE THE HEPARIN ASSAY. Performed By: #### C MP #### [address] [id number] INR Coag (PPP) [Relative time] 2.4 {INR} High 0.9 - 1.1 [facility] Comment on above: Performed By: #### C MP #### [address] [id number] PT Coag (PPP) [Time] 28.4 s High 10.1 - 13.3 [facility] Comment on above: Performed By: #### C MP #### [address] [id number] COMPREHENSIVE PANELon 2020 Albumin [Mass/Vol] 3.0 g/dL Low 3.4 - 5.0 [facility] Comment on above: Performed By: #### C MP #### [address] [id number] ALP [Catalytic activity/Vol] 79 U/L Normal 33 - 136 [facility] Comment on above: Performed By: #### C MP #### [address] [id number] ALT [Catalytic activity/Vol] 64 U/L High 7 - 45 [facility] Comment on above: Result Comment: Liz ents treated with Sulfasalazine may generate falsely decreased results for ALT. Performed By: #### C MP #### [address] [id number] Anion gap [Moles/Vol] 15 mmol/L Normal 10 - 20 [facility] Comment on above: Performed By: #### C MP #### [address] [id number] AST [Catalytic activity/Vol] 18 U/L Normal 9 - 39 [facility] Comment on above: Performed By: #### C MP #### [address] [id number] Bilirubin [Mass/Vol] 0.7 mg/dL Normal 0.0 - 1.2 [facility] Comment on above: Performed By: #### C MP #### [address] [id number] Calcium [Mass/Vol] 12.3 mg/dL High 8.6 - 10.3 [facility] Comment on above: Performed By: #### C MP #### [address] [id number] Chloride [Moles/Vol] 101 mmol/L Normal 98 - 107 [facility] Comment on above: Performed By: #### C MP #### [address] [id number] Creatinine [Mass/Vol] 2.31 mg/dL High 0.50 - 1.05 [facility] Comment on above: Performed By: #### C MP #### [address] [id number] GFR- AM. 24 mL/min/1.73m2 Abnormal >60 [facility] Comment on above: Result Comment: CALC ULATIONS OF ESTIMATED GFR ARE PERFORMED USING THE MDRD STUDY EQUATION FOR THE IDMS-TRACEABLE CREATININE METHODS. CLIN CHEM 2007;53:766-72 Performed By: #### C MP #### [address] [id number] GFR-NON AM. 20 mL/min/1.73m2 Abnormal >60 [facility] Comment on above: Performed By: #### C MP #### [address] [id number] Glucose [Mass/Vol] 184 mg/dL High 74 - 99 [facility] Comment on above: Performed By: #### C MP #### [address] [id number] HCO3 (Bld) [Moles/Vol] 26 mmol/L Normal 21 - 32 [facility] Comment on above: Performed By: #### C MP #### [address] [id number] Potassium [Moles/Vol] 4.2 mmol/L Normal 3.5 - 5.3 [facility] Comment on above: Performed By: #### C MP #### [address] [id number] Sodium [Moles/Vol] 138 mmol/L Normal 136 - 145 [facility] Comment on above: Performed By: #### C MP #### [address] [id number] Urea nitrogen [Mass/Vol] 84 mg/dL High 6 - 23 [facility] Comment on above: Performed By: #### C MP #### [address] [id number] CREATINE KINASEon 05-02-2020 CK [Catalytic activity/Vol] 28 U/L Normal 0 - 215 [facility] Comment on above: Performed By: #### C A #### [address] [id number] Consult-Nephrologyon 021 Consult-Nephrology Service: Service: Nephrology Consult: Consult requested by (Attending Name): Nani Stanley Reason: ANGELA History of Present Illness: HPI: LINDA PERALTA is a 75 year old Female w/ history s/f HTN, CAD, moris's disease, solitary kidney c/b RCC s/p partial nephrectomy, DVT/PE who was initially at [facility] [place] for AMS, hypercalcemia and hypotension now transferred [...] at 31. Pt states she sees a surgical territory manager Dr. Tarango PMHx: DVT/PE on warfarin, renal [...] penicillins: Rash Objective: Objective Information: T PRBPSpO2 Value36.52561325/8396% Date/Time05/02 8: 10: 8: 10: 8:30 Range(36.2C [...] partial nephrectomy, DVT/PE who was initially at [facility] for AMS, hypercalcemia and hypotension now transferred here. 1. ANGELA on CKD: previously hypotensive at [facility], now hypertensive, also CRS as pt is [...] to follow Consult Status: Consult Order ID: [id number] Electronic Signatures: Leigh Billy) (Signed 02-May-2020 12:52) Authored: Service, History of Present Illness, Allergies, Objective, Assessment/Recommendatio ns, Note Completion Last Updated: 02-May-2020 12:52 by Leigh Billy) Normal [facility] Daily Progress Note-Medicine on 05-02-2020 [...] changes. Objective Data: Objective Information: T PRBPSpO2 Value36.25191210/8396% Date/Time05/02 8: 10: 8: 10: 8:30 Range(36.2C [...] 1665, echo normal EF. Venous Doppler from [facility] 04/24 - for DVT -Appears she received fluids, furosemide, pamidronate [place] [facility] extreme elevation D > 250 at [facility], CT chest abdomen pelvis nonacute Impression 2: CKD, SOLITARY KIDNEY S/P PARTIAL NEPHRECTOMY benign RCC Plan for Impression 2: -Nephrology following -Baseline renal function unknown. Presenting creatinine 3/3 at [facility] 1.82 Impression 3: Altered mental status [...] Signature/Cosignature/At testation: Note Completion: I am a: WAREHOUSE PACKER Student WAREHOUSE PACKER Student Julieth was present with the WAREHOUSE PACKER student who participated in the documentation of this note. I have personally seen and re-examined the patient and performed the medical decision-making components (assessment and plan of care). I have reviewed the WAREHOUSE PACKER student documentation and verified the findings in the note as written with additions or exceptions as stated in the body of this note. I personally evaluated the patient [id number] Comments/ Additional Findings Patient was seen and [...] Updated: 02-May-2020 16:15 by Nani Stanley) Normal [facility] History and Physicalon 05-02 History [...] a day. Objective: Objective Information: T PRBPSpO2 [id number]% Date/Time05/02 4: 4: 19: 4: 4:22 Range(36.3C [...] to decline elective intubation order entered in [facility] to reflect pt's wishes Signatures/Attestation/C ertification: Note Completion Attending Provider Inpatient Certification StatementI certify this patients need for inpatient care based on the above documentation including; the order to admit as inpatient, the anticipated length of stay, diagnosis, problem list and plan of care, and discharge plan. Admission Order - View OnlyCurrent Admission Order. Admit to Inpatient Adult Community Transfer to, [facility]: [address] Admitting Diagnosis, E83.52 Hypercalcemia , Attending [...] Updated: 02-May-2020 12:26 by Leigh Billy) Normal [facility] LACTATEon 05-02-2020 Lactate [Moles/Vol] 1.8 mmol/L Normal 0.4 - 2.0 [facility] Comment on above: Result Comment: Nadia puncture immediately after or during the administration of Metamizole may lead to falsely low results. Testing should be performed immediately prior to Metamizole dosing. Performed By: #### C BC #### [facility] [address] [place], [place] [id number] MAGNESIUMon 05-02-2020 Magnesium [Mass/Vol] 2.00 mg/dL Normal 1.60 - 2.40 [facility] Comment on above: Performed By: #### M G ####[facility] [place], [place] [id number] MANUAL DIFFERENTIALon 2020 % EOSINOPHIL 0.0 % Normal 0.0 - 6.0 [facility] Comment on above: Performed By: #### P R12 #### [facility] [address] [place] [address] % METAMYELOCYTE 3.0 % Normal 0.0 - 0.0 [facility] Comment on above: Performed By: #### P R12 #### [facility] [address] [place] [address] % MYELOCYTE 2.0 % Normal 0.0 - 0.0 [facility] Comment on above: Performed By: #### P R12 #### [facility] [address] [place] [address] % SEG NEUTROPHIL 81.0 % Normal 40.0 - 80.0 [facility] Comment on above: Result Comment: Perc ent differential counts (%) should be interpreted in the context of the absolute cell counts (cells/L). Performed By: #### P R12 #### [facility] [address] [place] [address] ANC 14.86 x10E9/L High 1.60 - 5.50 [facility] Comment on above: Performed By: #### P R12 #### [facility] [address] [place] [address] Band form neutrophils/100 WBC (Bld) 2.0 % Normal 0.0 - 5.0 [facility] Comment on above: Performed By: #### P R12 #### [facility] [address] [place] [address] BAND NEUTROPHIL 0.36 x10E9/L Normal 0.00 - 0.50 [facility] Comment on above: Performed By: #### P R12 #### [facility] [address] [place] [address] BASOPHIL 0.00 x10E9/L Normal 0.00 - 0.10 [facility] Comment on above: Performed By: #### P R12 #### [facility] [address] [place] [address] Basophils/100 WBC (Bld) 0.0 % Normal [facility] Comment on above: Performed By: #### P R12 #### [facility] [address] [place] [address] EOSINOPHIL 0.00 x10E9/L Normal 0.00 - 0.40 [facility] Comment on above: Performed By: #### P R12 #### [facility] [address] [place] [address] LYMPHOCYTE 1.07 x10E9/L Normal 0.80 - 3.00 [facility] Comment on above: Performed By: #### P R12 #### [facility] [address] [place] [address] Lymphocytes/100 WBC (Bld) 6.0 % Normal 13.0 - 44.0 [facility] Comment on above: Performed By: #### P R12 #### [facility] [address] [place] [address] Metamyelocytes/100 WBC (Bld) 0.54 x10E9/L Abnormal 0.00 - 0.00 [facility] Comment on above: Performed By: #### P R12 #### [facility] [address] [place] [address] MONOCYTE 1.07 x10E9/L High 0.05 - 0.80 [facility] Comment on above: Performed By: #### P R12 #### [facility] [address] [place] [address] Monocytes/100 WBC (Bld) 6.0 % Normal 2.0 - 10.0 [facility] Comment on above: Performed By: #### P R12 #### [facility] [address] [place] [address] MYELOCYTE 0.36 x10E9/L Abnormal 0.00 - 0.00 [facility] Comment on above: Performed By: #### P R12 #### [facility] [address] [place] [address] SEG NEUTROPHIL 14.50 x10E9/L High 1.60 - 5.00 [facility] Comment on above: Performed By: #### P R12 #### [facility] [address] [place] [address] OSMOLALITY, SERUMon 05-03-19 21 OSMOLALITY, SERUM 322 mOsm/kg H2O High 280 - 300 [facility] Comment on above: Performed By: #### O SMOL ####[facility] [place], [place] [id number] Order Reconciliationon 05-02 Order Reconciliation Page 1 [...] 1000 milligram(s) orally every 6 hours, As [id number]-Qwj-[id number] UNKNOWN UNKNOWN Reviewed and Held atorvastatin 10 mg oral tablet 1 tab(s) orally once a day (at bedtime) UNKNOWN Atorvastatin Tablet (LIPITOR)DOSE = 10 mg Oral Dailyatorvastatin 10 mg oral tablet continued as the inpatient order Atorvastatin Calmoseptine 0.44%-20.6% topical ointment Apply topically to affected area 2 times a day, As [id number]-Apz- 2021 PM Menthol 0.44% - Zinc Oxide [...] oral tablet 1 tab(s) orally once a [id number]-Evr-1126 UNKNOWN UNKNOWN Reviewed and Held dupilumab 300 milligram(s) subcutaneous every 2 jqwuz68-Ual-3326UHTDHGT UNKNOWN Reviewed and Held Florinef Acetate 0.1 mg oral tablet 1 tab(s) orally once a utp83-Jjo-7059 UNKNOWN UNKNOWN Fludrocortisone Tablet (FLORINEF)DOSE = 0.1 [...] oral tablet 1 tab(s) orally once a sur80-Znm-5083TDCSPCS UNKNOWN Hydrocortisone Tablet (CORTEF)DOSE = 10 mg Oral Dailyhydrocortisone 10 mg oral tablet continued as the inpatient order Hydrocortisone hydrocortisone 20 mg oral tablet 1 tab(s) orally once a vop58-Zfy-6227JRPCWZR UNKNOWN Hydrocortisone Tablet (CORTEF)DOSE = 20 mg Oral Daily 1800 hydrocortisone 20 mg oral tablet continued as the inpatient order Hydrocortisone lactobacillus acidophilus-lactobacillu s casei oral delayed release capsule 1 cap(s) orally once a hft65-Dci-6207TWBJOCR UNKNOWN Reviewed and Held nitroglycerin 0.4 mg sublingual tablet 1 tab(s) sublingual every 5 minutes, As Nuqvtu56-Dzi-6065PEEOIRR UNKNOWN Nitroglycerin SubLingual Tablet (NITROSTAT)DOSE = 0.4 mg SubLingual Every 5 Minutes, PRN Anginanitroglycerin 0.4 mg sublingual tablet continued as the inpatient order Nitroglycerin SubLingual warfarin 2.5 mg oral tablet 1 tab(s) orally once a xhc73-[id number]-Ysr-460 1 PM Blood in Urine, Monitor for [...] oral tablet 1 tab(s) orally once a bbj71-[id number]-Wgn-048 1 PM Bleeding, Monitor for Call physician [...] oral tablet 1 tab(s) orally once a tlh39-Ggb-879772-Tki-912 1 PM Nursing to ensure Your Guide [...] oral tablet 1 tab(s) orally once a vyo85-[id number]-Yga-678 1 PM Communication Order INR Goal 2 [...] oral tablet 1 tab(s) orally once a hwe28-[id number]-Tuy-169 1 PM Warfarin Tablet (COUMADIN)DOSE = 2.5 [...] mL Run at: 100 mL/hr IntraVenous Normal [facility] PARATHYROID HORMONE,INTACTon 05-02-2020 PARATHYROID HORMONE,INTACT Canceled Normal [facility] Comment on above: Order Comment: TEST PARATHYROID HORMONE,INTACT WAS CANCELLED, 05/02/2020 12:20 added per RN05/02/2020 12:20. Performed By: #### P TH ####[address] [id number] PHOSPHORUSon 05-02-2020 Phosphate [Mass/Vol] 6.4 mg/dL High 2.5 - 4.9 [facility] Comment on above: Result Comment: The performance characteristics of phosphorus testing in heparinized plasma have been validated by the individual laboratory site where testing is performed. Testing on heparinized plasma is not approved by the FDA; however, such approval is not necessary. Performed By: #### C MP #### [address] [id number] PREALBUMINon 05-02-2020 Prealbumin [Mass/Vol] 28.0 mg/dL Normal 18.0 - 40.0 [facility] Comment on above: Performed By: #### C BC #### [address] [id number] PROTEIN ELECTROPHORESIS + IM MUNOFIXATION, SERUMon 05-02-2020 Protein [Mass/Vol] 5.5 g/dL Low 6.4 - 8.2 [facility] Comment on above: Performed By: #### I FE2 ####[address] [id number] [place] [address] Performed By: #### C MP #### [address] [id number] PROTEIN ELECTROPHORESIS,SERU 05-02-2020 Albumin [Mass/Vol] Canceled Normal [facility] Comment on above: Order Comment: TEST PROTEIN ELECTROPHORESIS,SERUM WAS CANCELLED, 05/02/2020 12:20 added per RN 05/02/2020 12:20. Performed By: #### S PE2 #### [facility] [address] [place] [address] ALPHA 1 GLOBULIN Canceled Normal [facility] Comment on above: Order Comment: TEST PROTEIN ELECTROPHORESIS,SERUM WAS CANCELLED, 05/02/2020 12:20 added per RN 05/02/2020 12:20. Performed By: #### S PE2 #### [facility] [address] [place] [address] ALPHA 2 GLOBULIN Canceled Normal [facility] Comment on above: Order Comment: TEST PROTEIN ELECTROPHORESIS,SERUM WAS CANCELLED, 05/02/2020 12:20 added per RN 05/02/2020 12:20. Performed By: #### S PE2 #### [facility] [address] [place] [address] BETA GLOBULIN Canceled Normal [facility] Comment on above: Order Comment: TEST PROTEIN ELECTROPHORESIS,SERUM WAS CANCELLED, 05/02/2020 12:20 added per RN 05/02/2020 12:20. Performed By: #### S PE2 #### [facility] [address] [place] [address] GAMMA GLOBULIN Canceled Normal [facility] Comment on above: Order Comment: TEST PROTEIN ELECTROPHORESIS,SERUM WAS CANCELLED, 05/02/2020 12:20 added per RN 05/02/2020 12:20. Performed By: #### S PE2 #### [facility] [address] [place] [address] INTERPRETATION Canceled Normal [facility] Comment on above: Order Comment: TEST PROTEIN ELECTROPHORESIS,SERUM WAS CANCELLED, 05/02/2020 12:20 added per RN 05/02/2020 12:20. Performed By: #### S PE2 #### [facility] [address] [place] [address] Protein [Mass/Vol] Canceled Normal [facility] Comment on above: Order Comment: TEST PROTEIN ELECTROPHORESIS,SERUM WAS CANCELLED, 05/02/2020 12:20 added per RN 05/02/2020 12:20. Performed By: #### S PE2 #### [facility] [address] [place] [address] Order Comment: TEST PTH RELATED PROTEIN WAS CANCELLED, 05/02/2020 12:20 added per RN05/02/2020 12:20. Performed By: #### P R12 #### [facility] [address] [place] [address] Patient Profile - Adult v2on 05-02-2020 Patient Profile - Adult v2 Profile: Initial Info: How to be AddressedLinda Spoken Language PreferredEnglish Source of Informationhealth record; patient Stated Reason for Admissionpatient states I fell. Primary Contact Name and NumberSouleymane Lopez - [phone] (daughter) Other Contact Names and NumbersWilman Peralta - [phone] - Next of Kin - Patients Patient Belongingsnone Arrived Fromspital Medications Brought to Hospitalno Are you currently using the Personal Electronic Health Record or [employer] ([employer]) Wants Family/Rep Notified of Admissionyes, primary contact Notify PCPnotify PCP Informed of Patient Visiting Rightsyes General Health: Weight in kg74.5 kilogram(s) Weight in sxc823.2 pound(s) Weight Methodactual (measured) Scale Typebed Height [...] Lives Withspouse Living Arrangementshouse Services [facility] [place] Significant IndicatorsComplete Information Review: Allergies, Home Meds and Significant Events have been Reviewed and Verified with Patient/Familyyes ALLERGY, INTOLERANCE, ADVERSE EVENT: Allergies: ciprofloxacin: Drug, Rash, Active penicillins: Drug Category, Rash, Active Electronic Signatures: Nehemias Mercado (ROSS) (Signed 02-May-2020 01:28) Authored: Initial Info, General Health, RSP Based Care, Substance, Health Mgmt, Relationship/Environ, Additional Information Last Updated: 02-May-2020 01:28 by Nehemias Mercado (ROSS) Normal [facility] RED CELL MORPHOLOGYon 2020 RBC morphology finding Nom (Bld) SEE COMMENT Normal [facility] Comment on above: Result Comment: NO S IGNIFICANT RBC ABNORMALITIES SEEN ON SMEAR REVIEW. Performed By: #### C A #### [facility] [address] [place], [place] [id number] RETICULOCYTESon 05-02-2020 RETIC # 0.054 x10E12/L Normal 0.017 - 0.110 [facility] Comment on above: Performed By: #### R ETIC ####[facility] [place], [place] [id number] RETIC % 1.4 % Normal 0.5 - 2.0 [facility] Comment on above: Performed By: #### R ETIC ####[facility] [place], [place] [id number] RETIC-HB 37 pg Normal 28 - 38 [facility] Comment on above: Performed By: #### R ETIC ####[place] [id number] [place], [place] [id number] SPE PATH REVIEWon 05-02-2020 PATH REVIEW-SPE Canceled Normal [facility] Comment on above: Order Comment: TEST SPE PATH REVIEW WAS CANCELLED, 05/02/2020 12:20 added per RN 112:20. Result Comment: By h er/his signature above, the Pathologist listed as making the final interpretation certifies that she/he has personally reviewed this case. Performed By: #### P R12 #### [facility] [address] [place] [address] THYROXINE,FREEon 05-02-2020 THYROXINE,FREE 1.30 ng/dL High 0.61 - 1.12 [facility] Comment on above: Result Comment: Thyr oxine Free testing is performed using different testing methodology at [facility] than at other [facility]. Direct result comparisons should only be [...] Performed By: #### T 4FRE ####[facility] [place], [place] [id number] TSHon 05-02-2020 TSH Qn 0.69 m[IU]/L Normal 0.44 - 3.98 [facility] Comment on above: Result Comment: TSH testing is performed using different testing methodology at [facility] than at other [facility]. Direct result comparisons should only be made within the same method. Performed By: #### C BC #### [facility] [address] [place], [place] [id number] URIC ACIDon 05-02-2020 Urate [Mass/Vol] 10.4 mg/dL High 2.3 - 6.7 [facility] Comment on above: Result Comment: Nadia puncture immediately after or during the administration of Metamizole may lead to falsely low results. Testing should be performed immediately prior to Metamizole dosing. Performed By: #### U SANDI ####[facility] [place], [place] [id number] US RENAL BILATon 05-02-2020 US RENAL BILAT Patient Name: LINDA PERALTA STUDY: US RENAL BILAT; 05/02/2020 12:38 pm INDICATION: ANGELA. COMPARISON: None. ACCESSION NUMBER(S): [id number] ORDERING CLINICIAN: NANI STANLEY TECHNIQUE: Multiple images [...] Electronically signed by: ALBERTO HARRIS MD Normal [facility] VITAMIN D 1,25-DIHYDROXYon 0 05-02-2020 VITAMIN D 1,25-DIHYDROXY Canceled Normal [facility] Comment on above: Order Comment: TEST VITAMIN D 1,25-DIHYDROXY WAS CANCELLED, 05/02/2020 12:20 added per RN05/02/2020 12:20. Performed By: #### V TDDI ####[address] [address] VITAMIN D, 25-HYDROXYon 04-20 VITAMIN D, 25-HYDROXY 33 ng/mL Normal [facility] Comment on above: Result Comment: . DEFICIENCY: < 20 NG/ML INSUFFICIENCY: 20-29 NG/ML SUFFICIENCY: 30-100 NG/ML THIS ASSAY ACCURATELY QUANTIFIES THE SUM OF VITAMIN D3, 25-HYDROXY AND VIT D2,25-HYDROXY. Performed By: #### C #### [address] [id number] Culture, urine Bacteria identified Cx Nom (U) Positive [facility] Work Phone: Bacteria identified Cx Nom (U) Escherichia coli [facility] Work Phone: Laboratory - Microbiology an d Antimicrobial susceptibility Bacteria identified Cx Nom (Bld) No growth in 5 days. [facility] Work Phone: Vital Signs Date Time Vital Sign Value Performing Clinician Facility 11-28-2024 11:17-0400 Body height 157.5 cm Basim Joel APRN - SUPPLY PERSON Work Phone: [facility] 11-28-2024 11:17-0400 Body mass index (BMI) [Ratio] 27.65 kg/m2 Basim Joel APRN - SUPPLY PERSON Work Phone: [facility] 11-28-2024 11:17-0400 Body weight 68.58 kg Basim Joel APRN - SUPPLY PERSON Work Phone: [facility] 11-28-2024 11:17-0400 Diastolic blood pressure 92 mm[Hg] Basim Bang SUPPLY PERSON Work Phone: [facility] 11-28-2024 11:17-0400 Heart rate 92 /min Basim Joel APRN - SUPPLY PERSON Work Phone: [facility] 11-28-2024 11:17-0400 SaO2% (BldA) [Mass fraction] 99 % Basim Joel APRN - SUPPLY PERSON Work Phone: [facility] 11-28-2024 11:17-0400 Systolic blood pressure 150 mm[Hg] Basim Bang SUPPLY PERSON Work Phone: [facility] 11-28-2024 10:00-0400 Body mass index (BMI) [Ratio] 27.98 kg/m2 Dylon Gupta WAREHOUSE P[employer]ER [employer] Work Phone: [facility] 11-28-2024 10:00-0400 Body weight 69.4 kg Dylon Gupta WAREHOUSE PACKER - SUPPLY PERSON Work Phone: [facility] 11-14-2024 09:18-0400 Diastolic blood pressure 98 mm[Hg] Dr. Amos Floyd MD Work Phone: [facility] 11-14-2024 09:18-0400 Systolic blood pressure 139 mm[Hg] Dr. Amos Floyd MD Work Phone: [facility] 11-14-2024 09:02-0400 Body height 157.[address] Amos Floyd MD Work Phone: [facility] 11-14-2024 09:02-0400 Body mass index (BMI) [Ratio] 27.2 kg/m2 Dr. Amos Floyd MD Work Phone: [facility] 11-14-2024 09:02-0400 Body weight 67.[address] Amos Floyd MD Work Phone: [facility] 11-14-2024 09:02-0400 Heart rate 81 /min Dr. Amos Floyd MD Work Phone: [facility] 11-14-2024 09:02-0400 Respiratory rate 16 /min Dr. Amos Floyd MD Work Phone: [facility] 10-31-2024 10:49-0400 Body height 157.5 cm Basim Joel WAREHOUSE PACKER - SUPPLY PERSON Work Phone: [facility] 10-31-2024 10:49-0400 Body mass index (BMI) [Ratio] 27.98 kg/m2 Basim Joel WAREHOUSE PACKER - SUPPLY PERSON Work Phone: [facility] 10-31-2024 10:49-0400 Body weight 69.4 kg Basim Joel WAREHOUSE PACKER - SUPPLY PERSON Work Phone: [facility] 10-31-2024 10:49-0400 Diastolic blood pressure 86 mm[Hg] Basim Joel WAREHOUSE PACKER - SUPPLY PERSON Work Phone: [facility] 10-31-2024 10:49-0400 Heart rate 96 /min Basim Hernandezluisa Bang SUPPLY PERSON Work Phone: [facility] 10-31-2024 10:49-0400 SaO2% (BldA) [Mass fraction] 98 % Basim Joel WAREHOUSE PACKER - SUPPLY PERSON Work Phone: [facility] 10-31-2024 10:49-0400 Systolic blood pressure 132 mm[Hg] Basim Hernandezluisa Bang SUPPLY PERSON Work Phone: [facility] 10-29-2024 10:41-0400 Body mass index (BMI) [Ratio] 28.06 kg/m2 Amos Floyd MD Work Phone: [facility] 10-29-2024 10:41-0400 Body temperature 97.5 [degF] Amos Floyd MD Work Phone: [facility] 10-29-2024 10:41-0400 Body weight 69.6 kg Amos Floyd MD Work Phone: [facility] 10-29-2024 10:41-0400 Diastolic blood pressure 72 mm[Hg] Amos Floyd MD Work Phone: [facility] 10-29-2024 10:41-0400 Heart rate 60 /min Amos Floyd MD Work Phone: [facility] 10-29-2024 10:41-0400 Respiratory rate 20 /min Amos Floyd MD Work Phone: [facility] 10-29-2024 10:41-0400 Systolic blood pressure 112 mm[Hg] Amos Floyd MD Work Phone: [facility] 10-24-2024 11:00-0400 Diastolic blood pressure 116 mm[Hg] Memo Canas MD Work Phone: [facility] 10-24-2024 11:00-0400 Heart rate 93 /min Memo Canas MD Work Phone: [facility] 10-24-2024 11:00-0400 Respiratory rate 27 /min Memo Canas MD Work Phone: [facility] [email or web address] 10-24-2024 11:00-0400 SaO2% (BldA) [Mass fraction] 96 % Memo Canas MD Work Phone: [facility] [email or web address] 10-24-2024 11:00-0400 Systolic blood pressure 134 mm[Hg] Memo Canas MD Work Phone: [facility] [email or web address] 10-24-2024 09:00-0400 Body temperature 95.5 [degF] Memo Cnaas MD Work Phone: [facility] [email or web address] 10-24-2024 08:22-0400 Body height 157.5 cm Memo Canas MD Work Phone: [facility] [email or web address] 10-24-2024 08:22-0400 Body mass index (BMI) [Ratio] 26.7 kg/m2 Memo Canas MD Work Phone: [facility] [email or web address] 10-24-2024 08:22-0400 Body weight 66.22 kg Memo Canas MD Work Phone: [facility] [email or web address] 09-19-2024 14:57-0400 Body height 157.5 cm Basim Joel APRN - TELLY Work Phone: [facility] 09-19-2024 14:57-0400 Body mass index (BMI) [Ratio] 29.26 kg/m2 Basim Joel APRN - TELLY Work Phone: [facility] [email or web address] 09-19-2024 14:57-0400 Body weight 72.58 kg Basim Bang CNP Work Phone: [facility] [email or web address] 09-19-2024 14:57-0400 Diastolic blood pressure 84 mm[Hg] Basim Bang CNP Work Phone: [facility] 09-19-2024 14:57-0400 Heart rate 90 /min Basim Bang CNP Work Phone: [facility] [email or web address] 09-19-2024 14:57-0400 SaO2% (BldA) [Mass fraction] 100 % Basim Wisam WAREHOUSE PACKER - SUPPLY PERSON Work Phone: [facility] 09-19-2024 14:57-0400 Systolic blood pressure 115 mm[Hg] Basim Hernandezel WAREHOUSE PACKER - SUPPLY PERSON Work Phone: [facility] 09-19-2024 10:53-0400 Body height 157.5 cm Arelis Dusz WAREHOUSE PACKER.SUPPLY PERSON Work Phone: [facility] 09-19-2024 10:53-0400 Body mass index (BMI) [Ratio] 28.35 kg/m2 Arelis Dusz WAREHOUSE PACKER.SUPPLY PERSON Work Phone: [facility] 09-19-2024 10:53-0400 Body weight 70.31 kg Arelis Dusz WAREHOUSE PACKER.SUPPLY PERSON Work Phone: [facility] 09-19-2024 10:53-0400 Diastolic blood pressure 76 mm[Hg] Arelis Dusz WAREHOUSE PACKER.SUPPLY PERSON Work Phone: [facility] 09-19-2024 10:53-0400 Systolic blood pressure 124 mm[Hg] Arelis Dusz WAREHOUSE PACKER.SUPPLY PERSON Work Phone: [facility] 09-03-2024 15:49-0400 Body height 157.5 cm Baldo De La Cruz MD Work Phone: [facility] 09-03-2024 15:49-0400 Body mass index (BMI) [Ratio] 28.55 kg/m2 Baldo De La Cruz MD Work Phone: [facility] 09-03-2024 15:49-0400 Body weight 70.8 kg Baldo De La Cruz MD Work Phone: [facility] 09-03-2024 15:49-0400 Diastolic blood pressure 86 mm[Hg] Baldo De La Cruz MD Work Phone: [facility] 09-03-2024 15:49-0400 Heart rate 98 /min Baldo De La Cruz MD Work Phone: [facility] 09-03-2024 15:49-0400 Systolic blood pressure 124 mm[Hg] Baldo De La Cruz MD Work Phone: [facility] 09-03-2024 15:29-0400 Body height 157.5 cm Memo Canas MD Work Phone: [facility] 09-03-2024 15:29-0400 Body mass index (BMI) [Ratio] 28.53 kg/m2 Memo Canas MD Work Phone: [facility] 09-03-2024 15:29-0400 Body weight 70.76 kg Memo Canas MD Work Phone: [facility] 09-03-2024 15:29-0400 Diastolic blood pressure 86 mm[Hg] Memo Canas MD Work Phone: [facility] 09-03-2024 15:29-0400 Heart rate 98 /min Memo Canas MD Work Phone: [facility] 09-03-2024 15:29-0400 Systolic blood pressure 124 mm[Hg] Memo Canas MD Work Phone: [facility] 08-29-2024 10:47-0400 Diastolic blood pressure 83 mm[Hg] Amos Floyd MD Work Phone: [facility] 08-29-2024 10:47-0400 Heart rate 71 /min Amos Flody MD Work Phone: [facility] 08-29-2024 10:47-0400 Systolic blood pressure 135 mm[Hg] Amos Floyd MD Work Phone: [facility] 08-29-2024 10:36-0400 Body mass index (BMI) [Ratio] 28.79 kg/m2 Amos Floyd MD Work Phone: [facility] 08-29-2024 10:36-0400 Body weight 71.4 kg Amos Floyd MD Work Phone: [facility] 08-29-2024 10:36-0400 Respiratory rate 20 /min Amos Floyd MD Work Phone: [facility] 08-14-2024 11:28-0400 Body mass index (BMI) [Ratio] 28.71 kg/m2 Amos Floyd MD Work Phone: [facility] 08-14-2024 11:28-0400 Body temperature 98.2 [degF] Amos Floyd MD Work Phone: [facility] 08-14-2024 11:28-0400 Body weight 71.2 kg Amos Floyd MD Work Phone: [facility] 08-14-2024 11:28-0400 Diastolic blood pressure 64 mm[Hg] Amos Floyd MD Work Phone: [facility] 08-14-2024 11:28-0400 Heart rate 88 /min Amos Floyd MD Work Phone: [facility] 08-14-2024 11:28-0400 Respiratory rate 18 /min Amos Floyd MD Work Phone: [facility] 08-14-2024 11:28-0400 Systolic blood pressure 98 mm[Hg] Amos Floyd MD Work Phone: [facility] 08-09-2024 15:03-0400 Body temperature 97.3 [degF] Dr. Amos Floyd MD Work Phone: [facility] 08-09-2024 15:03-0400 Diastolic blood pressure 73 mm[Hg] Dr. Amos Floyd MD Work Phone: [facility] 08-09-2024 15:03-0400 Heart rate 93 /min Dr. Amos Floyd MD Work Phone: [facility] 08-09-2024 15:03-0400 Respiratory rate 18 /min Dr. Amos Floyd MD Work Phone: [facility] 08-09-2024 15:03-0400 SaO2% (BldA) [Mass fraction] 96 % Dr. Amos Floyd MD Work Phone: [facility] 08-09-2024 15:03-0400 Systolic blood pressure 112 mm[Hg] Dr. Amos Floyd MD Work Phone: 9(482)512-197268 [place] [address] 08-09-2024 05:31-0400 Body mass index (BMI) [Ratio] 29.5 kg/m2 Dr. Amos Floyd MD Work Phone: 4(326)882-664568 [place] [address] 08-09-2024 05:31-0400 Body weight 72.[address] Amos Floyd MD Work Phone: 0(551)677-874768 [place] [address] 08-08-2024 10:56-0400 Body height 157.[address] Amos Floyd MD Work Phone: 3(575)278-792568 [place] [address] 08-07-2024 21:30-0400 Diastolic blood pressure 88 mm[Hg] Dr. Amos Floyd MD Work Phone: 9(703)272-220768 [place] [address] 08-07-2024 21:30-0400 Heart rate 101 /min Dr. Amos Floyd MD Work Phone: 9(573)105-934668 [place] [address] 08-07-2024 21:30-0400 Respiratory rate 23 /min Dr. Amos Floyd MD Work Phone: 5(294)032-128068 [place] [address] 08-07-2024 21:30-0400 SaO2% (BldA) [Mass fraction] 98 % Dr. Amos Floyd MD Work Phone: 3(243)401-896868 [place] [address] 08-07-2024 21:30-0400 Systolic blood pressure 123 mm[Hg] Dr. Amos Floyd MD Work Phone: 6(778)266-050168 [place] [address] 08-07-2024 21:13-0400 Body temperature 98.4 [degF] Dr. Amos Floyd MD Work Phone: 9(073)862-242168 [place] [address] 08-07-2024 16:00-0400 Body mass index (BMI) [Ratio] 27.3 kg/m2 Dr. Amos Floyd MD Work Phone: 1(410)481-074968 [place] [address] 08-07-2024 16:00-0400 Body weight [address] Amos Floyd MD Work Phone: [facility] 08-07-2024 15:49-0400 Body height 157.[address] Amos Floyd MD Work Phone: [facility] 08-05-2024 07:22-0400 Body height 157.[address] Amos Floyd MD Work Phone: [facility] 08-05-2024 07:22-0400 Body weight 66.[address] Amos Floyd MD Work Phone: [facility] 08-01-2024 16:17-0400 Body mass index (BMI) [Ratio] 26.6 kg/m2 Dr. Amos Floyd MD Work Phone: [facility] 07-24-2024 10:50-0400 Body mass index (BMI) [Ratio] 26.53 kg/m2 Amos Floyd MD Work Phone: [facility] 07-24-2024 10:50-0400 Body weight 65.8 kg Amos Floyd MD Work Phone: [facility] 07-24-2024 10:50-0400 Diastolic blood pressure 82 mm[Hg] Amos Floyd MD Work Phone: [facility] 07-24-2024 10:50-0400 Heart rate 80 /min Amos Floyd MD Work Phone: [facility] 07-24-2024 10:50-0400 Respiratory rate 20 /min Amos Floyd MD Work Phone: [facility] 07-24-2024 10:50-0400 Systolic blood pressure 126 mm[Hg] Amos Floyd MD Work Phone: [facility] 07-23-2024 06:19-0400 Body mass index (BMI) [Ratio] 26.6 kg/m2 Dr. Amos Floyd MD Work Phone: [facility] 07-23-2024 06:19-0400 Body weight 66.[address] Amos Floyd MD Work Phone: 5(703)079-716038 [place] [address] 07-23-2024 06:19-0400 Diastolic blood pressure 93 mm[Hg] Dr. Amos Floyd MD Work Phone: 7(407)223-153638 [place] [address] 07-23-2024 06:19-0400 Heart rate 98 /min Dr. Amos Floyd MD Work Phone: 2(230)117-510968 [place] [address] 07-23-2024 06:19-0400 Respiratory rate 18 /min Dr. Amos Floyd MD Work Phone: 5(423)899-162268 [place] [address] 07-23-2024 06:19-0400 SaO2% (BldA) [Mass fraction] 100 % Dr. Amos Floyd MD Work Phone: 5(589)183-458268 [place] [address] 07-23-2024 06:19-0400 Systolic blood pressure 142 mm[Hg] Dr. Amos Floyd MD Work Phone: 0(052)315-806568 [place] [address] 04-29-2024 08:22-0400 Body mass index (BMI) [Ratio] 26.5 kg/m2 Dr. Amos Floyd MD Work Phone: 8(684)389-759068 [place] [address] 04-29-2024 08:22-0400 Body weight 65.[address] Amos Floyd MD Work Phone: 9(202)527-790668 [place] [address] 04-29-2024 08:22-0400 Diastolic blood pressure 91 mm[Hg] Dr. Amos Floyd MD Work Phone: 3(007)959-611868 [place] [address] 04-29-2024 08:22-0400 Heart rate 97 /min Dr. Amos Floyd MD Work Phone: 5(233)563-267968 [place] [address] 04-29-2024 08:22-0400 Respiratory rate 18 /min Dr. Amos Floyd MD Work Phone: 2(659)901-411368 [place] [address] 04-29-2024 08:22-0400 SaO2% (BldA) [Mass fraction] 94 % Dr. Amos Floyd MD Work Phone: 7(061)823-133668 [place] [address] 04-29-2024 08:22-0400 Systolic blood pressure 123 mm[Hg] Dr. Amos Floyd MD Work Phone: [facility] 01-23-2024 10:10-0500 Body height 157.5 cm Amos Floyd MD Work Phone: [facility] 01-23-2024 10:10-0500 Body mass index (BMI) [Ratio] 26.01 kg/m2 Amos Floyd MD Work Phone: [facility] 01-23-2024 10:10-0500 Body temperature 97.5 [degF] Amos Floyd MD Work Phone: [facility] 01-23-2024 10:10-0500 Body weight 64.5 kg Amos Floyd MD Work Phone: [facility] 01-23-2024 10:10-0500 Diastolic blood pressure 76 mm[Hg] Amos Floyd MD Work Phone: [facility] 01-23-2024 10:10-0500 Heart rate 88 /min Amos Floyd MD Work Phone: [facility] 01-23-2024 10:10-0500 Respiratory rate 16 /min Amos Floyd MD Work Phone: [facility] 01-23-2024 10:10-0500 Systolic blood pressure 128 mm[Hg] Amos Floyd MD Work Phone: [facility] 09-19-2023 11:00-0400 Diastolic blood pressure 87 mm[Hg] Kole El PT Work Phone: [facility] 09-19-2023 11:00-0400 Heart rate 90 /min Kole El PT Work Phone: [facility] 09-19-2023 11:00-0400 Systolic blood pressure 131 mm[Hg] Kole El PT Work Phone: [facility] 09-12-2023 11:00-0400 Diastolic blood pressure 81 mm[Hg] Kole El PT Work Phone: [facility] 09-12-2023 11:00-0400 Heart rate 99 /min Kole Sienna PT Work Phone: [facility] 09-12-2023 11:00-0400 Systolic blood pressure 126 mm[Hg] Kole Sienna PT Work Phone: [facility] 09-08-2023 14:00-0400 Diastolic blood pressure 79 mm[Hg] Kole Sienna PT Work Phone: [facility] 09-08-2023 14:00-0400 Heart rate 98 /min Kole Sienna PT Work Phone: [facility] 09-08-2023 14:00-0400 Systolic blood pressure 115 mm[Hg] Kole Sienna PT Work Phone: [facility] 08-30-2023 14:00-0400 Diastolic blood pressure 79 mm[Hg] Kole Sienna PT Work Phone: [facility] 08-30-2023 14:00-0400 Heart rate 79 /min Kole Sienna PT Work Phone: [facility] 08-30-2023 14:00-0400 Systolic blood pressure 115 mm[Hg] Kole Sienna PT Work Phone: [facility] 08-21-2023 11:00-0400 Diastolic blood pressure 83 mm[Hg] Gisel Kashuba WASHING MACHINE INSTALLER Work Phone: [facility] 08-21-2023 11:00-0400 Heart rate 81 /min Gisel Kashuba WASHING MACHINE INSTALLER Work Phone: [facility] 08-21-2023 11:00-0400 Systolic blood pressure 118 mm[Hg] Gisel Kashuba WASHING MACHINE INSTALLER Work Phone: [facility] 08-09-2023 09:00-0400 Diastolic blood pressure 87 mm[Hg] Kole Sienna PT Work Phone: [facility] 08-09-2023 09:00-0400 Heart rate 78 /min Kole Sienna PT Work Phone: [facility] 08-09-2023 09:00-0400 Systolic blood pressure 139 mm[Hg] Kole Sienna PT Work Phone: [facility] 08-02-2023 09:00-0400 Diastolic blood pressure 100 mm[Hg] Kole Sienna PT Work Phone: [facility] Comment on above: Right when entering clinic upon sitting. 08-02-2023 09:00-0400 Heart rate 77 /min Kole Sienna PT Work Phone: [facility] 08-02-2023 09:00-0400 Systolic blood pressure 155 mm[Hg] Kole Sienna PT Work Phone: [facility] Comment on above: Right when entering clinic upon sitting. 07-19-2023 09:00-0400 Diastolic blood pressure 108 mm[Hg] Kole Sienna PT Work Phone: [facility] Comment on above: Resting. 07-19-2023 09:00-0400 Heart rate 85 /min Kole Sienna PT Work Phone: [facility] 07-19-2023 09:00-0400 Systolic blood pressure 164 mm[Hg] Kole Sienna PT Work Phone: [facility] Comment on above: Resting. 07-05-2023 09:00-0400 Diastolic blood pressure 115 mm[Hg] Kole Sienna PT Work Phone: [facility] Comment on above: Measured 3 times automatically and then once manually with measurements around the same. 07-05-2023 09:00-0400 Heart rate 92 /min Kole Sienna PT Work Phone: [facility] 07-05-2023 09:00-0400 Systolic blood pressure 170 mm[Hg] Kole Sienna PT Work Phone: [facility] Comment on above: Measured 3 times automatically and then once manually with measurements around the same. 06-30-2023 09:39-0400 Body mass index (BMI) [Ratio] 25.61 kg/m2 Amos Floyd MD Work Phone: [facility] 06-30-2023 09:39-0400 Body weight 63.5 kg Amos Floyd MD Work Phone: [facility] 06-30-2023 09:39-0400 Diastolic blood pressure 100 mm[Hg] Amos Floyd MD Work Phone: [facility] 06-30-2023 09:39-0400 Heart rate 78 /min Amos Floyd MD Work Phone: [facility] 06-30-2023 09:39-0400 Respiratory rate 16 /min Amos Floyd MD Work Phone: [facility] 06-30-2023 09:39-0400 Systolic blood pressure 164 mm[Hg] Amos Floyd MD Work Phone: [facility] 06-28-2023 11:00-0400 Diastolic blood pressure 96 mm[Hg] Koleberny MoralesSienna PT Work Phone: [facility] Comment on above: At beginning of session. 06-28-2023 11:00-0400 Heart rate 85 /min Koleberny MoralesSienna PT Work Phone: [facility] 06-28-2023 11:00-0400 Systolic blood pressure 144 mm[Hg] Kole Sienna PT Work Phone: [facility] Comment on above: At beginning of session. 06-21-2023 13:00-0400 Diastolic blood pressure 99 mm[Hg] Koleberny MoralesSienna PT Work Phone: [facility] 06-21-2023 13:00-0400 Heart rate 86 /min Kole Sienna PT Work Phone: [facility] 06-21-2023 13:00-0400 Systolic blood pressure 150 mm[Hg] Kole Sienna PT Work Phone: [facility] 06-14-2023 11:00-0400 Diastolic blood pressure 106 mm[Hg] Kole Sienna PT Work Phone: [facility] Comment on above: Initial. 06-14-2023 11:00-0400 Heart rate 87 /min Kole Sienna PT Work Phone: [facility] 06-14-2023 11:00-0400 SaO2% (BldA) [Mass fraction] 98 % Kole El PT Work Phone: [facility] 06-14-2023 11:00-0400 Systolic blood pressure 157 mm[Hg] Kole El PT Work Phone: [facility] Comment on above: Initial. 05-31-2023 15:33-0400 Diastolic blood pressure 77 mm[Hg] Dr. Amos Floyd Work Phone: [facility] 05-31-2023 15:33-0400 Heart rate 81 /min Dr. Amos Floyd Work Phone: [facility] 05-31-2023 15:33-0400 Systolic blood pressure 134 mm[Hg] Dr. Amos Floyd Work Phone: [facility] 05-31-2023 14:22-0400 Body height 157.[address] Amos Floyd Work Phone: [facility] 05-31-2023 14:22-0400 Body mass index (BMI) [Ratio] 25.6 kg/m2 Dr. Amos Floyd Work Phone: [facility] 05-31-2023 14:22-0400 Body temperature 97 [degF] Dr. Amos Floyd Work Phone: [facility] 05-31-2023 14:22-0400 Body weight 63.[address] Amos Floyd Work Phone: [facility] 05-31-2023 14:22-0400 Respiratory rate 14 /min Dr. Amos Floyd Work Phone: [facility] 05-31-2023 14:22-0400 SaO2% (BldA) [Mass fraction] 99 % Dr. Amos Floyd Work Phone: [facility] 05-31-2023 11:12-0400 Body temperature 97.11 [degF] Rocio VivasFide WAREHOUSE PACKER.SUPPLY PERSON Work Phone: [facility] 05-31-2023 11:12-0400 Body weight 64.41 kg Rocio VivasFide WAREHOUSE PACKER.SUPPLY PERSON Work Phone: [facility] 05-31-2023 11:12-0400 Diastolic blood pressure 71 mm[Hg] Rocio VillafanaFide WAREHOUSE PACKER.SUPPLY PERSON Work Phone: [facility] 05-31-2023 11:12-0400 Heart rate 112 /min Rocio VillafanaFide WAREHOUSE PACKER.SUPPLY PERSON Work Phone: [facility] 05-31-2023 11:12-0400 Respiratory rate 14 /min Rocio VillafanaFide WAREHOUSE PACKER.SUPPLY PERSON Work Phone: [facility] 05-31-2023 11:12-0400 SaO2% (BldA) [Mass fraction] 97 % Rocio Elizalde WAREHOUSE PACKER.SUPPLY PERSON Work Phone: [facility] 05-31-2023 11:12-0400 Systolic blood pressure 102 mm[Hg] Rocio VivasFide WAREHOUSE PACKER.SUPPLY PERSON Work Phone: [facility] 05-26-2023 11:11-0400 Body temperature 97.7 [degF] Elisa Mcdonough MD Work Phone: [facility] 05-26-2023 11:11-0400 Diastolic blood pressure 72 mm[Hg] Elisa Mcdonough MD Work Phone: [facility] 05-26-2023 11:11-0400 Heart rate 92 /min Elisa Mcdonough MD Work Phone: [facility] 05-26-2023 11:11-0400 Respiratory rate 17 /min Elisa Mcdonough MD Work Phone: [facility] 05-26-2023 11:11-0400 SaO2% (BldA) [Mass fraction] 94 % Elisa Mcdonough MD Work Phone: [facility] 05-26-2023 11:11-0400 Systolic blood pressure 106 mm[Hg] Elisa Mcdonough MD Work Phone: [facility] 05-24-2023 01:41-0400 Body height 157.5 cm Elisa Mcdonough MD Work Phone: [facility] 05-24-2023 01:41-0400 Body mass index (BMI) [Ratio] 25.85 kg/m2 Elisa Mcdonough MD Work Phone: [facility] 05-24-2023 01:41-0400 Body weight 64.1 kg Elisa Mcdonough MD Work Phone: [facility] 05-24-2023 00:20-0400 Body temperature 97.4 [degF] Dr. Amos Floyd Work Phone: [facility] 05-24-2023 00:20-0400 Diastolic blood pressure 91 mm[Hg] Dr. Amos Floyd Work Phone: [facility] 05-24-2023 00:20-0400 Heart rate 81 /min Dr. Amos Floyd Work Phone: [facility] 05-24-2023 00:20-0400 Respiratory rate 15 /min Dr. Amos Floyd Work Phone: [facility] 05-24-2023 00:20-0400 SaO2% (BldA) [Mass fraction] 96 % Dr. Amos Floyd Work Phone: [facility] 05-24-2023 00:20-0400 Systolic blood pressure 138 mm[Hg] Dr. Amos Floyd Work Phone: [facility] 05-23-2023 20:02-0400 Body height 157.[address] Amos Floyd Work Phone: [facility] 05-23-2023 20:02-0400 Body mass index (BMI) [Ratio] 25.8 kg/m2 Dr. Amos Floyd Work Phone: [facility] 05-23-2023 20:02-0400 Body weight 64.[address] Amos Floyd Work Phone: [facility] 05-23-2023 12:18-0400 Body weight 63.5 kg Rocio Fide WAREHOUSE PACKER.SUPPLY PERSON Work Phone: [facility] 05-23-2023 12:18-0400 Diastolic blood pressure 82 mm[Hg] Rocio Fide WAREHOUSE PACKER.SUPPLY PERSON Work Phone: [facility] 05-23-2023 12:18-0400 Heart rate 72 /min Rocio Fide WAREHOUSE PACKER.SUPPLY PERSON Work Phone: [facility] 05-23-2023 12:18-0400 Respiratory rate 14 /min Rocio Fide WAREHOUSE PACKER.SUPPLY PERSON Work Phone: [facility] 05-23-2023 12:18-0400 SaO2% (BldA) [Mass fraction] 96 % Rocio Fide WAREHOUSE PACKER.SUPPLY PERSON Work Phone: [facility] 05-23-2023 12:18-0400 Systolic blood pressure 106 mm[Hg] Rocio Fide WAREHOUSE PACKER.SUPPLY PERSON Work Phone: [facility] 05-15-2023 22:30-0400 Body temperature 98.1 [degF] Dr. Amos Floyd Work Phone: [facility] 05-15-2023 22:30-0400 Diastolic blood pressure 86 mm[Hg] Dr. Amos Floyd Work Phone: [facility] 05-15-2023 22:30-0400 Heart rate 74 /min Dr. Amos Floyd Work Phone: [facility] 05-15-2023 22:30-0400 Respiratory rate 16 /min Dr. Amos Floyd Work Phone: [facility] 05-15-2023 22:30-0400 SaO2% (BldA) [Mass fraction] 98 % Dr. Amos Floyd Work Phone: 9(797)795-635968 [place] [address] 05-15-2023 22:30-0400 Systolic blood pressure 146 mm[Hg] Dr. Amos Floyd Work Phone: 0(613)396-905368 [place] [address] 05-15-2023 14:44-0400 Body height 157.[address] Amos Floyd Work Phone: 0(765)481-149368 [place] [address] 05-15-2023 14:44-0400 Body mass index (BMI) [Ratio] 26 kg/m2 Dr. Amos Floyd Work Phone: 4(507)645-647368 [place] [address] 05-15-2023 14:44-0400 Body weight 64.[address] Amos Floyd Work Phone: 0(041)610-383168 [place] [address] 03-03-2023 08:55-0500 Body height 157.[address] Amos Floyd Work Phone: 2(567)048-261068 [place] [address] 03-03-2023 08:55-0500 Body mass index (BMI) [Ratio] 26.3 kg/m2 Dr. Amos Floyd Work Phone: 2(866)830-669068 [place] [address] 03-03-2023 08:55-0500 Body weight 65.[address] Amos Floyd Work Phone: 4(179)955-599268 [place] [address] 03-03-2023 08:55-0500 Diastolic blood pressure 76 mm[Hg] Dr. Amos Floyd Work Phone: 2(019)328-669368 [place] [address] 03-03-2023 08:55-0500 Heart rate 86 /min Dr. Amos Floyd Work Phone: 6(172)584-198168 [place] [address] 03-03-2023 08:55-0500 Respiratory rate 18 /min Dr. Aoms Floyd Work Phone: 4(227)345-914968 [place] [address] 03-03-2023 08:55-0500 SaO2% (BldA) [Mass fraction] 99 % Dr. Amos Floyd Work Phone: 6(607)921-272168 [place] [address] 03-03-2023 08:55-0500 Systolic blood pressure 115 mm[Hg] Dr. Amos Floyd Work Phone: [facility] 01-19-2023 12:57-0500 Body height 159 cm Amos Floyd MD Work Phone: [facility] 01-19-2023 12:57-0500 Body weight 64.41 kg Amos Floyd MD Work Phone: [facility] 01-19-2023 12:57-0500 Diastolic blood pressure 66 mm[Hg] Amos Floyd MD Work Phone: [facility] 01-19-2023 12:57-0500 Heart rate 88 /min Amos Floyd MD Work Phone: [facility] 01-19-2023 12:57-0500 Respiratory rate 16 /min Amos Floyd MD Work Phone: [facility] 01-19-2023 12:57-0500 Systolic blood pressure 110 mm[Hg] Amos Floyd MD Work Phone: [facility] 11-25-2022 13:20-0400 Body height 157.[address] Amos Floyd Work Phone: [facility] 11-25-2022 13:20-0400 Body temperature 97.4 [degF] Dr. Amos Floyd Work Phone: [facility] 11-25-2022 13:20-0400 Diastolic blood pressure 91 mm[Hg] Dr. Amos Floyd Work Phone: [facility] 11-25-2022 13:20-0400 Heart rate 75 /min Dr. Amos Floyd Work Phone: [facility] 11-25-2022 13:20-0400 Respiratory rate 16 /min Dr. Amos Floyd Work Phone: [facility] 11-25-2022 13:20-0400 SaO2% (BldA) [Mass fraction] 99 % Dr. Amos Floyd Work Phone: 3(401)232-118038 [place] [address] 11-25-2022 13:20-0400 Systolic blood pressure 131 mm[Hg] Dr. Amos Floyd Work Phone: 4(619)152-451768 [place] [address] 11-24-2022 13:49-0400 Body mass index (BMI) [Ratio] 26.2 kg/m2 Dr. Amos Floyd Work Phone: 0(616)716-083068 [place] [address] 11-24-2022 13:49-0400 Body temperature 97.6 [degF] Dr. Amos Floyd Work Phone: 0(977)455-222668 [place] [address] 11-24-2022 13:49-0400 Body weight 64.[address] Amos Floyd Work Phone: 7(095)595-637168 [place] [address] 11-24-2022 13:49-0400 Diastolic blood pressure 74 mm[Hg] Dr. Amos Floyd Work Phone: 4(863)376-636768 [place] [address] 11-24-2022 13:49-0400 Heart rate 70 /min Dr. Amos Floyd Work Phone: 2(322)234-644568 [place] [address] 11-24-2022 13:49-0400 Respiratory rate 16 /min Dr. Amos Floyd Work Phone: 2(114)983-826668 [place] [address] 11-24-2022 13:49-0400 SaO2% (BldA) [Mass fraction] 97 % Dr. Amos Floyd Work Phone: 4(627)286-511538 [place] [address] 11-24-2022 13:49-0400 Systolic blood pressure 112 mm[Hg] Dr. Amos Floyd Work Phone: [facility] 11-08-2022 10:48-0400 Body temperature 97.5 [degF] Jacinda Enriquez WAREHOUSE PACKER.SUPPLY PERSON Work Phone: [facility] 11-08-2022 10:48-0400 Body weight 63.32 kg Jacinda Enriquez WAREHOUSE PACKER.SUPPLY PERSON Work Phone: [facility] 11-08-2022 10:48-0400 Diastolic blood pressure 86 mm[Hg] Jacinda Enriquez WAREHOUSE PACKER.SUPPLY PERSON Work Phone: [facility] 11-08-2022 10:48-0400 Heart rate 78 /min Jacinda Enriquez WAREHOUSE PACKER.SUPPLY PERSON Work Phone: [facility] 11-08-2022 10:48-0400 Respiratory rate 20 /min Jacinda Enriquez WAREHOUSE PACKER.SUPPLY PERSON Work Phone: [facility] 11-08-2022 10:48-0400 SaO2% (BldA) [Mass fraction] 98 % Jacinda Enriquez WAREHOUSE PACKER.SUPPLY PERSON Work Phone: [facility] 11-08-2022 10:48-0400 Systolic blood pressure 128 mm[Hg] Jacinda Enriquez WAREHOUSE PACKER.SUPPLY PERSON Work Phone: [facility] 08-04-2022 13:18-0400 Body height 157.[address] Amos Floyd Work Phone: [facility] 08-04-2022 13:18-0400 Body mass index (BMI) [Ratio] 26.2 kg/m2 Dr. Amos Floyd Work Phone: [facility] 08-04-2022 13:18-0400 Body weight 64.[address] Amos Floyd Work Phone: [facility] 08-04-2022 13:18-0400 Diastolic blood pressure 82 mm[Hg] Dr. Amos Floyd Work Phone: [facility] 08-04-2022 13:18-0400 Heart rate 79 /min Dr. Amos Floyd Work Phone: [facility] 08-04-2022 13:18-0400 Respiratory rate 18 /min Dr. Amos Floyd Work Phone: [facility] 08-04-2022 13:18-0400 SaO2% (BldA) [Mass fraction] 98 % Dr. Amos Floyd Work Phone: [facility] 08-04-2022 13:18-0400 Systolic blood pressure 122 mm[Hg] Dr. Amos Floyd Work Phone: [facility] 07-20-2022 10:17-0400 Diastolic blood pressure 66 mm[Hg] Rocio Older WAREHOUSE PACKER.SUPPLY PERSON Work Phone: [facility] 07-20-2022 10:17-0400 Systolic blood pressure 102 mm[Hg] Rocio Older WAREHOUSE PACKER.SUPPLY PERSON Work Phone: [facility] 07-20-2022 10:01-0400 Body weight 63.05 kg Rocio Older [employer]HOUSE [employer]SUPPLY PERSON Work Phone: [facility] 07-20-2022 10:01-0400 Heart rate 96 /min Rocio Older [employer]HOUSE [employer]ER[employer]SUPPLY PERSON Work Phone: [facility] 07-20-2022 10:01-0400 Respiratory rate 16 /min Rocio Older [employer]HOUSE P[employer]ER.SUPPLY PERSON Work Phone: [facility] 05-27-2022 12:58-0400 Body height 157.[address] Amos Floyd Work Phone: [facility] 05-27-2022 12:58-0400 Body temperature 96.4 [degF] Dr. Amos Floyd Work Phone: [facility] 05-27-2022 12:58-0400 Diastolic blood pressure 93 mm[Hg] Dr. Amos Floyd Work Phone: [facility] 05-27-2022 12:58-0400 Heart rate 78 /min Dr. Amos Floyd Work Phone: [facility] 05-27-2022 12:58-0400 Respiratory rate 16 /min Dr. Amos Floyd Work Phone: [facility] 05-27-2022 12:58-0400 SaO2% (BldA) [Mass fraction] 99 % Dr. Amos Floyd Work Phone: 7(422)591-231438 [place] [address] 05-27-2022 12:58-0400 Systolic blood pressure 152 mm[Hg] Dr. Amos Floyd Work Phone: [facility] 01-25-2022 11:33-0500 Body height 157.[address] Amos Floyd Work Phone: [facility] 01-25-2022 11:33-0500 Body mass index (BMI) [Ratio] 25.9 kg/m2 Dr. Amos Floyd Work Phone: 0(380)988-958738 [place] [address] 01-25-2022 11:33-0500 Body weight 64.[address] Amos Floyd Work Phone: 7(826)536-651438 [place] [address] 01-25-2022 11:33-0500 Diastolic blood pressure 91 mm[Hg] Dr. Amos Floyd Work Phone: 0(556)876-660538 [place] [address] 01-25-2022 11:33-0500 Heart rate 92 /min Dr. Amos Floyd Work Phone: 0(010)504-243638 [place] [address] 01-25-2022 11:33-0500 Respiratory rate 18 /min Dr. Amos Floyd Work Phone: 7(400)756-843868 [place] [address] 01-25-2022 11:33-0500 SaO2% (BldA) [Mass fraction] 99 % Dr. Amos Floyd Work Phone: [facility] 01-25-2022 11:33-0500 Systolic blood pressure 128 mm[Hg] Dr. Amos Floyd Work Phone: [facility] 12-20-2021 09:16-0400 Diastolic blood pressure 100 mm[Hg] Rocio Older [employer]HOUSE [employer]ER[employer]SUPPLY PERSON Work Phone: [facility] 12-20-2021 09:16-0400 Systolic blood pressure 154 mm[Hg] Rocio Older [employer]HOUSE P[employer]ER[employer]SUPPLY PERSON Work Phone: [facility] 12-20-2021 08:50-0400 Body height 156 cm Rocio Older WAREHOUSE P[employer]ER.SUPPLY PERSON Work Phone: [facility] 12-20-2021 08:50-0400 Body weight 64.41 kg Rocio Older WAREHOUSE P[employer]ER.SUPPLY PERSON Work Phone: [facility] 12-20-2021 08:50-0400 Heart rate 96 /min Rocio Older WAREHOUSE P[employer]ER.SUPPLY PERSON Work Phone: [facility] 12-20-2021 08:50-0400 Respiratory rate 16 /min Rocio Older WAREHOUSE P[employer]ER.SUPPLY PERSON Work Phone: [facility] 12-13-2021 09:14-0400 Body height 157.[address] Amos Floyd Work Phone: [facility] Work Phone: 12-13-2021 09:13-0400 Body mass index (BMI) [Ratio] 25.7 kg/m2 Dr. Amos Floyd Work Phone: [facility] 12-13-2021 09:13-0400 Body weight 63.[address] Amos Floyd Work Phone: [facility] 12-13-2021 09:13-0400 Diastolic blood pressure 95 mm[Hg] Dr. Amos Floyd Work Phone: [facility] 12-13-2021 09:13-0400 Heart rate 80 /min Dr. Amos Floyd Work Phone: [facility] 12-13-2021 09:13-0400 Respiratory rate 18 /min Dr. Amos Floyd Work Phone: [facility] 12-13-2021 09:13-0400 SaO2% (BldA) [Mass fraction] 99 % Dr. Amos Floyd Work Phone: [facility] 12-13-2021 09:13-0400 Systolic blood pressure 146 mm[Hg] Dr. Amos Floyd Work Phone: [facility] 12-06-2021 14:34-0400 Body temperature 97.5 [degF] Amos Floyd MD Work Phone: [facility] 12-06-2021 14:34-0400 Body weight 62.6 kg Amos Floyd MD Work Phone: [facility] 12-06-2021 14:34-0400 Diastolic blood pressure 86 mm[Hg] Amos Floyd MD Work Phone: [facility] 12-06-2021 14:34-0400 Heart rate 84 /min Amos Floyd MD Work Phone: [facility] 12-06-2021 14:34-0400 Respiratory rate 20 /min Amos Floyd MD Work Phone: [facility] 12-06-2021 14:34-0400 Systolic blood pressure 126 mm[Hg] Amos Floyd MD Work Phone: [facility] 12-02-2021 13:34-0400 Body mass index (BMI) [Ratio] 25.9 kg/m2 Dr. Amos Floyd Work Phone: [facility] 12-02-2021 13:34-0400 Body temperature 94.6 [degF] Dr. Amos Floyd Work Phone: [facility] 12-02-2021 13:34-0400 Body weight 64.[address] Amos Floyd Work Phone: [facility] 12-02-2021 13:34-0400 Diastolic blood pressure 104 mm[Hg] Dr. Amos Floyd Work Phone: [facility] 12-02-2021 13:34-0400 Heart rate 79 /min Dr. Amos Floyd Work Phone: [facility] 12-02-2021 13:34-0400 Respiratory rate 16 /min Dr. Amos Floyd Work Phone: [facility] 12-02-2021 13:34-0400 SaO2% (BldA) [Mass fraction] 95 % Dr. Amos Floyd Work Phone: [facility] 12-02-2021 13:34-0400 Systolic blood pressure 158 mm[Hg] Dr. Amos Floyd Work Phone: [facility] 11-26-2021 13:15-0400 Body height 157.[address] Amos Floyd Work Phone: [facility] Work Phone: 11-26-2021 13:15-0400 Body temperature 97.8 [degF] Dr. Amos Floyd Work Phone: 4(068)775-789438 [place] [address] 11-26-2021 13:15-0400 Diastolic blood pressure 88 mm[Hg] Dr. Amos Floyd Work Phone: 7(091)009-242038 [place] [address] 11-26-2021 13:15-0400 Heart rate 79 /min Dr. Amos Floyd Work Phone: 2(130)328-844068 [place] [address] 11-26-2021 13:15-0400 Respiratory rate 16 /min Dr. Amos Floyd Work Phone: 4(935)804-958868 [place] [address] 11-26-2021 13:15-0400 SaO2% (BldA) [Mass fraction] 98 % Dr. Amos Floyd Work Phone: 6(478)046-066738 [place] [address] 11-26-2021 13:15-0400 Systolic blood pressure 144 mm[Hg] Dr. Amos Floyd Work Phone: 9(297)202-584468 [place] [address] 11-18-2021 08:00-0400 Body temperature 98.2 [degF] Dr. Amos Floyd Work Phone: [facility] Work Phone: 11-18-2021 08:00-0400 Diastolic blood pressure 77 mm[Hg] Dr. Amos Floyd Work Phone: [facility] Work Phone: 11-18-2021 08:00-0400 Heart rate 72 /min Dr. Amos Floyd Work Phone: [facility] Work Phone: 11-18-2021 08:00-0400 Respiratory rate 18 /min Dr. Amos Floyd Work Phone: [facility] Work Phone: 11-18-2021 08:00-0400 SaO2% (BldA) [Mass fraction] 98 % Dr. Amos Floyd Work Phone: [facility] Work Phone: 11-18-2021 08:00-0400 Systolic blood pressure 112 mm[Hg] Dr. Amos Floyd Work Phone: [facility] Work Phone: 11-18-2021 05:55-0400 Body weight 63.[address] Amos Floyd Work Phone: [facility] Work Phone: 11-17-2021 10:20-0400 Body height 157.[address] Amos Floyd Work Phone: [facility] Work Phone: 11-17-2021 05:24-0400 Body weight 63.2 kg [facility] Work Phone: 11-17-2021 04:00-0400 Heart rate 83 /min [facility] Work Phone: 11-17-2021 01:25-0400 Body height 157.48 cm [facility] Work Phone: 11-17-2021 01:25-0400 Body mass index (BMI) [Ratio] 25.4 kg/m2 [facility] Work Phone: 11-17-2021 00:51-0400 Body temperature 98.1 [degF] [facility] Work Phone: 11-17-2021 00:51-0400 Diastolic blood pressure 63 mm[Hg] [facility] Work Phone: 11-17-2021 00:51-0400 Respiratory rate 25 /min [facility] Work Phone: 11-17-2021 00:51-0400 SaO2% (BldA) [Mass fraction] 96 % [facility] Work Phone: 11-17-2021 00:51-0400 Systolic blood pressure 84 mm[Hg] [facility] Work Phone: 10-20-2021 22:49-0400 Body mass index (BMI) [Ratio] 23 kg/m2 [facility] Work Phone: 10-13-2021 13:48-0400 Body temperature 98.71 [degF] Irene Praisler-Wood [employer]HOUSE P[employer]ER.SUPPLY PERSON Work Phone: [facility] 10-13-2021 13:48-0400 Body weight 62.51 kg Irene Praisler-Wood WAREHOUSE P[employer]ER.SUPPLY PERSON Work Phone: [facility] 10-13-2021 13:48-0400 Diastolic blood pressure 84 mm[Hg] Irene Praisler-Wood WAREHOUSE P[employer]ER.SUPPLY PERSON Work Phone: [facility] 10-13-2021 13:48-0400 Heart rate 111 /min Irene Praisler-Wood W[employer]HOUSE P[employer]ER.SUPPLY PERSON Work Phone: [facility] 10-13-2021 13:48-0400 Respiratory rate 18 /min Irene Praisler-Wood W[employer]HOUSE P[employer]ER.SUPPLY PERSON Work Phone: [facility] 10-13-2021 13:48-0400 SaO2% (BldA) [Mass fraction] 97 % Irene Praisler-Wood W[employer]HOUSE P[employer]ER.SUPPLY PERSON Work Phone: [facility] 10-13-2021 13:48-0400 Systolic blood pressure 124 mm[Hg] Irene Praisler-Wood [employer]HOUSE P[employer].SUPPLY PERSON Work Phone: [facility] 09-19-2021 02:13-0400 Body mass index (BMI) [Ratio] 23 kg/m2 Dr. Amos Floyd Work Phone: [facility] Work Phone: 08-20-2021 06:53-0400 Body mass index (BMI) [Ratio] 23 kg/m2 Dr. Amos Floyd Work Phone: [facility] Work Phone: 07-20-2021 20:34-0400 Body mass index (BMI) [Ratio] 23 kg/m2 Dr. Amos Floyd Work Phone: [facility] Work Phone: 07-20-2021 09:20-0400 Body temperature 97.11 [degF] Amos Floyd MD Work Phone: [facility] 07-20-2021 09:20-0400 Body weight 62.6 kg Amos Floyd MD Work Phone: [facility] 07-20-2021 09:20-0400 Diastolic blood pressure 68 mm[Hg] Amos Floyd MD Work Phone: [facility] 07-20-2021 09:20-0400 Heart rate 72 /min Amos Floyd MD Work Phone: [facility] 07-20-2021 09:20-0400 Respiratory rate 16 /min Amos Floyd MD Work Phone: [facility] 07-20-2021 09:20-0400 Systolic blood pressure 114 mm[Hg] Amos Floyd MD Work Phone: [facility] 07-12-2021 11:22-0400 Body height 157.[address] Amos Floyd Work Phone: [facility] Work Phone: 07-12-2021 11:22-0400 Body mass index (BMI) [Ratio] 25.6 kg/m2 Dr. Amos Floyd Work Phone: [facility] Work Phone: 07-12-2021 11:22-0400 Body weight 63.[address] Amos Floyd Work Phone: [facility] Work Phone: 07-12-2021 11:22-0400 Diastolic blood pressure 88 mm[Hg] Dr. Amos Floyd Work Phone: [facility] Work Phone: 07-12-2021 11:22-0400 Heart rate 74 /min Dr. Amos Flyod Work Phone: [facility] Work Phone: 07-12-2021 11:22-0400 Respiratory rate 18 /min Dr. Amos Floyd Work Phone: [facility] Work Phone: 07-12-2021 11:22-0400 SaO2% (BldA) [Mass fraction] 98 % Dr. Amos Floyd Work Phone: [facility] Work Phone: 07-12-2021 11:22-0400 Systolic blood pressure 129 mm[Hg] Dr. Amos Floyd Work Phone: [facility] Work Phone: 07-12-2021 11:22-0400 Body height 157.[address] Amos Floyd Work Phone: [facility] Work Phone: 07-12-2021 11:22-0400 Body mass index (BMI) [Ratio] 25.6 kg/m2 Dr. Amos Floyd Work Phone: [facility] Work Phone: 07-12-2021 11:22-0400 Body weight 63.[address] Amos Floyd Work Phone: [facility] Work Phone: 07-12-2021 11:22-0400 Diastolic blood pressure 88 mm[Hg] Dr. Amos Floyd Work Phone: [facility] Work Phone: 07-12-2021 11:22-0400 Heart rate 74 /min Dr. Amos Floyd Work Phone: [facility] Work Phone: 07-12-2021 11:22-0400 Respiratory rate 18 /min Dr. Amos Floyd Work Phone: [facility] Work Phone: 07-12-2021 11:22-0400 SaO2% (BldA) [Mass fraction] 98 % Dr. Amos Floyd Work Phone: [facility] Work Phone: 07-12-2021 11:22-0400 Systolic blood pressure 129 mm[Hg] Dr. Amos Floyd Work Phone: [facility] Work Phone: 06-20-2021 03:20-0400 Body mass index (BMI) [Ratio] 23 kg/m2 Dr. Amos Floyd Work Phone: [facility] Work Phone: 05-27-2021 12:45-0400 Body height 157.[address] Amos Floyd Work Phone: [facility] Work Phone: 05-27-2021 12:45-0400 Body mass index (BMI) [Ratio] 25.6 kg/m2 Dr. Amos Floyd Work Phone: [facility] Work Phone: 05-27-2021 12:45-0400 Body temperature 97.1 [degF] Dr. Amos Floyd Work Phone: [facility] Work Phone: 05-27-2021 12:45-0400 Body weight 63.[address] Amos Floyd Work Phone: [facility] Work Phone: 05-27-2021 12:45-0400 Diastolic blood pressure 92 mm[Hg] Dr. Amos Floyd Work Phone: [facility] Work Phone: 05-27-2021 12:45-0400 Heart rate 89 /min Dr. Amos Floyd Work Phone: [facility] Work Phone: 05-27-2021 12:45-0400 Respiratory rate 12 /min Dr. Amos Floyd Work Phone: [facility] Work Phone: 05-27-2021 12:45-0400 SaO2% (BldA) [Mass fraction] 99 % Dr. Amos Floyd Work Phone: [facility] Work Phone: 05-27-2021 12:45-0400 Systolic blood pressure 134 mm[Hg] Dr. Amos Floyd Work Phone: [facility] Work Phone: 05-21-2021 01:38-0400 Body mass index (BMI) [Ratio] 23 kg/m2 Dr. Amos Floyd Work Phone: [facility] Work Phone: 04-20-2021 09:35-0500 Body mass index (BMI) [Ratio] 23 kg/m2 Dr. Amos Floyd Work Phone: [facility] Work Phone: 04-20-2021 08:35-0500 Body mass index (BMI) [Ratio] 23 kg/m2 Dr. Amos Floyd Work Phone: [facility] Work Phone: 2021 10:08-0500 Body height 157.[address] Amos Floyd Work Phone: [facility] Work Phone: 2021 10:08-0500 Body mass index (BMI) [Ratio] 26.5 kg/m2 Dr. Amos Floyd Work Phone: [facility] Work Phone: 2021 10:08-0500 Body weight 65.[address] Amos Floyd Work Phone: [facility] Work Phone: 2021 10:08-0500 Diastolic blood pressure 92 mm[Hg] Dr. Amos Floyd Work Phone: [facility] Work Phone: 2021 10:08-0500 Heart rate 80 /min Dr. Amos Floyd Work Phone: [facility] Work Phone: 2021 10:08-0500 Respiratory rate 18 /min Dr. Amos Floyd Work Phone: [facility] Work Phone: 2021 10:08-0500 SaO2% (BldA) [Mass fraction] 99 % Dr. Amos Floyd Work Phone: [facility] Work Phone: 2021 10:08-0500 Systolic blood pressure 134 mm[Hg] Dr. Amos Floyd Work Phone: [facility] Work Phone: 03-22-2021 21:52-0500 Body mass index (BMI) [Ratio] 23 kg/m2 Dr. Amos Floyd Work Phone: [facility] Work Phone: 02-21-2021 03:05-0500 Body mass index (BMI) [Ratio] 23 kg/m2 Dr. Amos Floyd Work Phone: [facility] Work Phone: 01-20-2021 01:16-0500 Body mass index (BMI) [Ratio] 23 kg/m2 Dr. Amos Floyd Work Phone: [facility] Work Phone: Encounters Encounter Date Encounter Type Care Provider Facility Start: 12-13-2024 Encounter for genera l adult medical examination without abnormal findings Jennifer Tarango [facility] Start: 12-10-[address] Jennifer Tarango DO -Ultrasound [facility] Work Phone: Start: 12-10-2024 End: 12-10-2024 ambulatory Jennifer Tarango Facility:[facility] Start: 12-04-2024 Non-patient / Non-visit [facility] Bledsoe [facility] Start: 12-04-2024 ambulatory MEMO EVAN MELVA Work Phone: -[facility] Start: 12-04-2024 ambulatory Jennifer Lee Facility: [facility] Start: 12-03-2024 End: 12-03-2024 Patient encounter procedure Basim FENTONNP -Laboratory Work Phone: Start: 12-03-2024 End: 12-03-2024 ambulatory Basim Joel Facility:[facility] Start: 11-28-2024 End: 11-28-2024 ambulatory BASIM JOEL [facility] Start: 11-28-2024 End: 11-28-2024 Office outpatient visit 25 minutes Basim Joel [employer]ER - [employer]PPLY PERSON Work Phone: [facility] [place] Comment on above: Chronic systolic hea rt failure (HCC) (Primary Dx); S/P TAVR (transcatheter aortic valve replacement); Deep vein thrombosis (DVT) of proximal vein of both lower extremities, unspecified chronicity (HCC); Stage 3b chronic kidney disease (CMS/HCC); Wharton's disease (HCC) Start: 11-28-2024 End: 11-28-2024 Subsequent hospital visit by physician Dylon Gupta W[employer]HOU[employer]ER - SUPPLY PERSON Work Phone: [facility] Comment on above: Severe aortic stenos is Start: 11-28-2024 End: 11-28-2024 ambulatory DYLON GUPTA [facility] Start: 11-25-2024 End: 11-25-[address] Jennifer Tarango DO -Laboratory Work Phone: Start: 11-25-2024 End: 11-25-2024 ambulatory Jennifer Tarango Facility:[facility] Start: 11-14-2024 End: 11-14-[address] Jordan Marte MD -[facility] Work Phone: Start: 11-14-2024 End: 11-14-[address] Amos Floyd MD Work Phone: -[facility] Start: 10-31-2024 End: 10-31-2024 ambulatory BASIM [facility] Start: 10-31-2024 End: 10-31-2024 Office outpatient visit 25 minutes Basim Joel [employer]ER - SUPPLY PERSON Work Phone: [facility] [employer] Comment on above: Severe aortic stenos is (Primary Dx); Stage 3b chronic kidney disease (HCC); Wharton's disease (HCC); Chronic systolic heart failure (HCC); Deep vein thrombosis (DVT) of proximal vein of both lower extremities, unspecified chronicity (HCC) Start: 10-31-2024 End: 10-31-2024 ambulatory BASIM [facility] Start: 10-29-2024 End: 10-29-2024 Office outpatient visit 25 minutes Amos Floyd MD Work Phone: [facility] [place] Comment on above: S/p TAVR (transcathe ter aortic valve replacement), bioprosthetic (Primary Dx); Pure hypercholesterolemia; Encounter for immunization; Stage 3b chronic kidney disease (HCC); Hypertensive kidney disease with stage 3b chronic kidney disease (HCC); Nonrheumatic aortic valve stenosis Start: 10-29-2024 End: 10-29-2024 ambulatory AMOS FLOYD Facility:[facility] Start: 10-24-2024 End: 10-24-2024 Orders Only Dylon Gupta [employer]HOU[employer]ER - SUPPLY PERSON Work Phone: [facility] [employer] Comment on above: Severe aortic stenos is (Primary Dx) Start: 10-23-2024 End: 10-24-2024 Evaluation and management of inpatient Memo Canas MD Work Phone: [facility] Cardiac Thoracic Vascular Intensive Care Unit CTV ICU T1 Comment on above: Severe aortic stenos is (Primary Dx); Aortic valve stenosis, etiology of cardiac valve disease unspecified; Syncope and collapse Start: 10-22-2024 End: 10-22-2024 ambulatory Dylon Gupta [employer]HOU[employer] P[employer]ER - SUPPLY PERSON Work Phone: [facility] Comment on above: Severe aortic stenos is (Primary Dx) Start: 10-16-2024 End: 10-16-2024 Office outpatient visit 25 minutes Dylon Gupta [employer]HOU[employer]ER - SUPPLY PERSON Work Phone: [facility] Comment on above: Severe aortic stenos is (Primary Dx); Stage 3 chronic kidney disease, unspecified whether stage 3a or 3b CKD (HCC); Acute deep vein thrombosis (DVT) of right lower extremity, unspecified vein (HCC); Acute systolic heart failure (HCC); Moris's disease (HCC) Start: 10-16-2024 End: 10-16-2024 ambulatory [facility] GU[facility] Start: 10-15-2024 End: 10-15-[address] Amos Floyd MD Work Phone: -Laboratory Start: 10-15-2024 End: 10-15-[address] Amos Floyd MD Work Phone: -Laboratory Work Phone: Start: 10-15-2024 End: 10-15-2024 ambulatory JEFF RAYGOZA Facility:[facility] Start: 10-10-2024 End: 10-23-2024 Telephone encounter Memo Canas MD Work Phone: [facility] Comment on above: Procedure Start: 10-03-2024 End: 10-03-[address] Amos Floyd MD Work Phone: -Laboratory Start: 10-03-2024 End: 10-03-2024 Patient encounter procedure Basim BUTLER -Laboratory Work Phone: Start: 10-03-2024 End: 10-03-2024 ambulatory Basim Jole Facility:[facility] Start: 10-02-2024 End: 10-02-2024 Telephone encounter Basim Joel [employer]ER - [employer]PPLY PERSON Work Phone: [facility] [place] Start: 09-26-2024 End: 09-26-2024 ambulatory ARELIS SMITH Facility:[facility] Start: 09-26-2024 End: 09-26-2024 Telephone encounter Basim Joel [employer]HOU[employer] P[employer]ER - SUPPLY PERSON Work Phone: [facility] [place] Start: 09-26-2024 ambulatory ARELIS SMITH Facility:[facility] Start: 09-19-2024 End: 09-19-2024 Office outpatient visit 25 minutes Basim Joel [employer]HOU[employer] P[employer]ER - SUPPLY PERSON Work Phone: [facility] Comment on above: Aortic valve stenosi s, etiology of cardiac valve disease unspecified (Primary Dx); Deep vein thrombosis (DVT) of proximal vein of both lower extremities, unspecified chronicity (HCC); Acute systolic heart failure (HCC); Wharton's disease (HCC); Renal insufficiency; Recurrent UTI Start: 09-19-2024 End: 09-19-2024 ambulatory BASIM WISAM [facility] Start: 09-19-2024 End: 09-23-2024 Telephone encounter Arelis Smith [employer]HOUSE P[employer]ER.SUPPLY PERSON Work Phone: Urology Comment on above: Consult Start: 09-19-2024 End: 09-19-2024 Subsequent hospital visit by physician Dylon Gupta [employer]ER - SUPPLY PERSON Work Phone: [facility] [address] Comment on above: Nonrheumatic aortic valve stenosis Start: 09-19-2024 End: 09-19-2024 ambulatory [facility] GUPT[facility] Start: 09-19-2024 End: 09-19-2024 Office consultation new/estab patient 60 min Arelis Smith [employer]HOUSE P[employer]ER.SUPPLY PERSON Work Phone: Urology Comment on above: Recurrent UTI (Prima ry Dx); History of kidney stones Start: 09-19-2024 End: 09-19-2024 ambulatory ARELIS SMITH Facility:[facility] Start: 09-12-2024 End: 09-19-2024 Telephone encounter Amos Floyd MD Work Phone: [facility] [place] Comment on above: Patient Question Start: 09-10-2024 End: 09-10-[address] Amos Floyd MD Work Phone: -Laboratory Start: 09-10-2024 End: 09-10-[address] Amos Floyd MD Work Phone: -Laboratory Work Phone: Start: 09-10-2024 End: 09-10-2024 ambulatory RYA1 RAYGOZA Facility:[facility] Start: 09-03-2024 End: 09-03-2024 Office consultation new/estab patient 80 min Baldo De La Cruz MD Work Phone: [facility] Comment on above: Severe aortic stenos is (Primary Dx) Start: 09-03-2024 End: 09-03-2024 Office outpatient visit 40 minutes Memo Canas MD Work Phone: [facility] [employer] Comment on above: Nonrheumatic aortic valve stenosis (Primary Dx) Start: 09-03-2024 End: 09-03-2024 Orders Only Dylon Gupta APRN - SUPPLY PERSON Work Phone: [facility] [employer] [facility] Comment on above: Nonrheumatic aortic valve stenosis (Primary Dx) Start: 08-31-2024 End: 09-02-2024 Follow-up encounter Amos Floyd MD Work Phone: [facility] [place] Start: 08-29-2024 End: 08-29-2024 Office outpatient visit 25 minutes Amos Floyd MD Work Phone: [facility] [place] Comment on above: Acute deep vein thro mbosis (DVT) of proximal vein of both lower extremities (HCC) (Primary Dx); Adrenal insufficiency (HCC); Primary hypertension; History of UTI; Nonrheumatic aortic valve stenosis; Thyroid nodule greater than or equal to 1 cm in diameter incidentally noted on imaging study, right side. Start: 08-29-2024 End: 08-29-2024 ambulatory AMOS FLOYD Facility:[facility] Start: 08-22-2024 End: 08-22-2024 Patient Outreach Annemarie Read RN [employer] Comment on above: Weekly phone contact (Recurring) for Transitional Care Management Start: 08-20-2024 End: 08-20-2024 Follow-up encounter Amos Floyd MD Work Phone: [facility] [place] Start: 08-19-2024 End: 08-19-2024 Telephone encounter Amos Floyd MD Work Phone: [facility] [place] Comment on above: Patient Update Start: 08-16-2024 End: 08-16-2024 ambulatory Amos Floyd MD Work Phone: [facility] [place] Start: 08-16-2024 End: 08-16-2024 Follow-up encounter Amos Floyd MD Work Phone: [facility] [place] Comment on above: Follow up Start: 08-15-2024 End: 08-15-2024 Patient Outreach Annemarie Read RN [employer] Comment on above: Initial phone contac t for Transitional Care Management Start: 08-14-2024 End: 08-14-2024 Office outpatient visit 25 minutes Amos Floyd MD Work Phone: [facility] [place] Comment on above: Acute deep vein thro mbosis (DVT) of proximal vein of both lower extremities (HCC) (Primary Dx); Other specified hypotension; Adrenal insufficiency (HCC); Nonrheumatic aortic valve stenosis; Acute cystitis without hematuria Start: 08-14-2024 End: 08-14-2024 ambulatory SELF Facility:[facility] Start: 08-09-2024 Non-patient / Non-visit Dr. Jairo ramos DO -[facility] Work Phone: Start: 08-08-2024 Non-patient / Non-visit Dr. Deidre Toro MD -[facility] Work Phone: Start: 08-07-2024 ambulatory Nixon Sidhu ty:[facility] Start: 08-07-2024 End: 08-09-2024 Evaluation and management of inpatient Dr. Nixon de Gelacio DO -Intensive Care Unit Work Phone: Start: 08-05-2024 End: 08-05-2024 Admission to same day surgery center Dr. Jordan Marte MD -Food Cooking Machine Operator/Special Procedures Work Phone: Start: 08-05-2024 End: 08-05-[address] Amos Floyd MD Work Phone: [facility] Work Phone: Start: 07-24-2024 End: 07-24-2024 Office outpatient visit 25 minutes Amos Floyd MD Work Phone: [facility] [place] Comment on above: ASHD (arteriosclerot ic heart disease) (Primary Dx); Primary hypertension; Nonrheumatic aortic valve stenosis; Subconjunctival hemorrhage of left eye; Chronic nonallergic rhinitis; Stage 3b chronic kidney disease (HCC); Adrenal insufficiency (HCC); Encounter for immunization Start: 07-24-2024 End: 07-24-2024 ambulatory AMOS FLOYD Facility:[facility] Start: 07-23-2024 End: 07-23-2024 Patient encounter procedure Heaven VASQUEZ -[facility] Work Phone: Start: 07-23-2024 End: 07-23-[address] Amos Floyd MD Work Phone: [facility] Work Phone: Start: 07-21-2024 ambulatory Basim DISLA Facility:[facility] Start: 07-10-2024 End: 07-10-2024 ambulatory AMOS FLOYD Facility:[facility] Start: 07-05-2024 End: 07-05-2024 ambulatory AMOS FLOYD Facility:[facility] Start: 07-03-2024 ambulatory Amos Floyd Facili ty:[facility] Start: 07-03-2024 Non-patient / Non-visit Dr. Salena ZELAYA -[facility] Start: 07-03-2024 End: 07-03-2024 Patient encounter procedure Tucker DISLA -Cardiovascular Services Work Phone: Start: 07-03-2024 End: 07-03-[address] Amos Floyd MD Work Phone: [facility] Work Phone: Start: 06-21-2024 End: 06-21-2024 Discharged Recurring Basim Velasquez PA -Laboratory Work Phone: Start: 06-21-2024 Registered Recurring Basim Velasquez PA -Laboratory Work Phone: Start: 06-21-2024 End: 06-21-[address] Amos Floyd MD Work Phone: [facility] Work Phone: Start: 06-19-2024 End: 06-19-2024 Orders Only Brissa Wright WAREHOUSE PACKER.SUPPLY PERSON Work Phone: [facility] Comment on above: Thyroid nodule (Prim christ Dx) Allied Health Visit (Medication Adherence Outreach ) Start: 05-24-2024 Non-patient / Non-visit Dr. Salena ZELAYA -[facility] Start: 05-24-2024 End: 05-24-2024 Patient encounter procedure Tucker Reyes PA -Cardiovascular Services Work Phone: Start: 05-24-2024 End: 06-19-2024 Discharged Recurring Basim Velasquez PA -Laboratory Work Phone: Start: 05-24-2024 Registered Recurring Basim Velasquez PA -Laboratory Work Phone: Start: 05-24-2024 End: 06-19-[address] Amos Floyd MD Work Phone: [facility] Work Phone: Start: 05-24-2024 End: 05-24-2024 ambulatory Tucker Reyes Facility:[facility] Start: 05-14-2024 End: 05-14-2024 ambulatory Amos Floyd MD Work Phone: [facility] Comment on above: Allied Health Visit (Medication Adherence Outreach/) Start: 04-29-2024 End: 04-29-2024 Patient encounter procedure Tucker DISLA -[facility] Work Phone: Start: 04-29-2024 End: 04-29-2024 ambulatory Amos Floyd Facility:[facility] Start: 04-26-2024 End: 04-26-2024 Discharged Recurring Basim DISLA -Laboratory Work Phone: Start: 04-26-2024 End: 04-26-[address] Amos Floyd MD Work Phone: [facility] Work Phone: Start: 04-05-2024 End: 04-05-2024 ambulatory Del Saravia MA [facility] [place] Start: 04-05-2024 End: 04-05-2024 Patient encounter procedure [facility] [place] Comment on above: Population Health Na vigation Outreach ([employer] High Risk - 1st attempt/) Start: 04-03-2024 End: 04-03-[address] Jennifer Tarango DO -Laboratory Work Phone: Start: 04-03-2024 End: 04-03-2024 ambulatory Jennifer Tarango Facility:[facility] Start: 03-21-2024 End: 03-22-2024 ambulatory Basim DISLA Facility:[facility] Start: 03-21-2024 End: 03-22-2024 Discharged Recurring Basim Velasquez PA -Laboratory Work Phone: Start: 02-22-2024 End: 02-22-2024 Telephone encounter Amos Floyd MD Work Phone: [facility] [place] Comment on above: Results Start: 02-01-2024 End: 02-01-2024 Subsequent hospital visit by physician Genna [facility] (I-Stat) Work Phone: Cat Scan Comment on above: Nodule of lower lobe of right lung [R91.1] Start: 02-01-2024 End: 02-01-2024 ambulatory AMOS FLOYD Facility:[facility] Start: 01-23-2024 End: 01-23-2024 ambulatory AMOS FLOYD Facility:[facility] Start: 01-23-2024 End: 01-23-2024 Patient encounter procedure [...] Start: 01-11-2024 End: 01-11-2024 ambulatory AMOS FLOYD Facility:[facility] Start: 01-04-2024 End: 01-20-2024 ambulatory Basim DISLA Facility:[facility] Start: 01-01-2024 End: 01-01-2024 ambulatory AMOS FLOYD Facility:[facility] Start: 01-01-2024 End: 01-01-2024 Subsequent hospital visit [...] Start: 12-29-2023 End: 12-29-2023 ambulatory AMOS FLOYD Facility:[facility] Start: 12-26-2023 End: 12-28-2023 Telephone encounter Amos Floyd MD Work Phone: [facility] [place] Comment on above: Results Start: 12-21-2023 End: 12-21-2023 ambulatory Amos Floyd Facility:[facility] Start: 12-20-2023 End: 12-20-2023 Patient encounter procedure Nathaly Ren APRN.SUPPLY PERSON Work Phone: [facility] Comment on above: Radiology Review Start: 12-20-2023 End: 12-20-2023 Telephone encounter Nathaly Ren APRN.SUPPLY PERSON Work Phone: [facility] Start: 12-14-2023 End: 12-20-2023 ambulatory NATHALY REN Facility:[facility] Start: 12-06-2023 End: 12-07-2023 Refill Amos Floyd MD Work Phone: [facility] [place] Comment on above: Refill Request Start: 12-05-2023 End: 12-11-2023 Telephone encounter Amos Floyd MD Work Phone: [facility] [place] Comment on above: Insurance Authorizat ion Start: 11-28-2023 End: 12-01-2023 Refill Amos Floyd MD Work Phone: [facility] [place] Start: 11-14-2023 End: 11-14-2023 ambulatory Echo Miller RN Work Phone: [employer] Regulator Management Start: 11-11-2023 End: 11-11-2023 ambulatory AMOS FLOYD Facility:[facility] Start: 09-19-2023 End: 09-19-2023 ambulatory Kole El PT Work Phone: [facility] Comment on above: Physical decondition ing (Primary Dx); Gait abnormality; Weakness Start: 09-12-2023 End: 09-12-2023 ambulatory Kole Sienna PT Work Phone: [facility] Comment on above: Physical decondition ing (Primary Dx); Gait abnormality; Weakness Start: 09-08-2023 End: 09-08-2023 ambulatory Koleberny El PT Work Phone: [facility] Comment on above: Physical decondition ing (Primary Dx); Gait abnormality; Weakness Start: 09-06-2023 End: 01-15-2024 ambulatory Amos Floyd MD Work Phone: [facility] [place] Start: 09-06-2023 End: 01-15-2024 Follow-up encounter Amos Floyd MD Work Phone: [facility] [place] Comment on above: Patient followup Start: 08-30-2023 End: 08-30-2023 ambulatory Kole El PT Work Phone: [facility] Comment on above: Physical decondition ing (Primary Dx); Gait abnormality; Weakness Start: 08-21-2023 End: 08-21-2023 ambulatory Gisel Kimuna WASHING MACHINE INSTALLER Work Phone: [facility] Comment on above: Physical decondition ing (Primary Dx); Gait abnormality; Weakness Start: 08-17-2023 E-mail encounter fro m caregiver Nathaly Ren APRN.SUPPLY PERSON Work Phone: [facility] Start: 08-17-2023 Patient encounter procedure Nathaly Ren APRN.SUPPLY PERSON Work Phone: [facility] Comment on above: Actionable Finding Start: 08-11-2023 End: 08-11-2023 Patient encounter procedure Amos Floyd MD Work Phone: [facility] [place] Comment on above: Primary hypertension (Primary Dx); Hypercalcemia; Adrenal hypofunction (HCC); Nonrheumatic aortic valve stenosis Start: 08-09-2023 End: 08-09-2023 ambulatory Kole Sienna PT Work Phone: [facility] Comment on above: Physical decondition ing (Primary Dx); Gait abnormality; Weakness Start: 08-08-2023 Telephone encounter Amos maria MD Work Phone: [facility] [place] Comment on above: Hypertension Start: 08-02-2023 End: 08-02-2023 ambulatory Kole Sienna PT Work Phone: [facility] Comment on above: Physical decondition ing (Primary Dx); Gait abnormality; Weakness Start: 07-19-2023 End: 01-15-2024 ambulatory Kole Sienna PT Work Phone: [facility] Comment on above: Physical decondition ing (Primary Dx); Gait abnormality; Weakness medication midodrine Start: 07-05-2023 End: 07-05-2023 ambulatory Kole Sienna PT Work Phone: [facility] Comment on above: Physical decondition ing (Primary Dx); Gait abnormality; Weakness Start: 06-30-2023 End: 06-30-2023 Patient encounter procedure Amos Floyd MD Work Phone: [facility] [place] Comment on above: Hypercalcemia (Prima ry Dx); Age-related osteoporosis with current pathological fracture with routine healing; Hypokalemia; Adrenal hypofunction (HCC); NSTEMI (non-ST elevated myocardial infarction) (HCC); ASHD (arteriosclerotic heart disease); Nonrheumatic aortic valve stenosis Start: 06-28-2023 End: 06-28-2023 ambulatory Kole Sienna PT Work Phone: [facility] Comment on above: Physical decondition ing (Primary Dx); Gait abnormality; Weakness Start: 06-21-2023 End: 06-21-2023 ambulatory Kole El PT Work Phone: [facility] Comment on above: Physical decondition ing (Primary Dx); Gait abnormality; Weakness Start: 06-19-2023 Telephone encounter Delfino yost WAREHOUSE PACKER.SUPPLY PERSON Work Phone: [facility] Cardiology [place] Comment on above: Appointment Start: 06-19-2023 End: 06-20-[address] Amos Floyd Work Phone: [facility] Work Phone: Start: 06-19-2023 End: 06-20-[address] Amos Floyd Work Phone: [facility]-Laboratory Work Phone: Start: 06-14-2023 End: 06-14-2023 ambulatory Kole El PT Work Phone: [facility] Comment on above: Physical decondition ing (Primary Dx); Gait abnormality; Muscle weakness Start: 06-09-2023 ambulatory Rocio alexander APRN.SUPPLY PERSON Work Phone: [facility] Start: 06-09-2023 Evaluation and management of inpatient Rocio Elizalde APRN.SUPPLY PERSON Work Phone: [facility] [place] Comment on above: is inpatient a t [facility] Start: 06-08-2023 ambulatory Amos salazar MD Work Phone: [facility] [place] Comment on above: Chest Pain Start: 06-07-2023 Telephone encounter Rocio gomez APRN.SUPPLY PERSON Work Phone: [facility] [place] Comment on above: Blood Pressure Start: 05-31-2023 End: 05-31-[address] Amos Floyd Work Phone: [facility] Work Phone: Comment on above: Physical decondition ing (Primary Dx); Muscle weakness; Gait abnormality Start: 05-31-2023 Telephone encounter Amos maria MD Work Phone: [facility] [place] Comment on above: Clinical Update Start: 05-31-2023 End: 05-31-[address] Amos Floyd Work Phone: [facility]-Medical Out Work Phone: Start: 05-31-[address] Jenni Floyd Work Phone: [facility]-Laboratory Work Phone: Start: 05-31-2023 End: 05-31-2023 Patient encounter procedure Rocio Elizalde APRN.SUPPLY PERSON Work Phone: [facility] [place] Comment on above: Other specified hypo tension (Primary Dx); Moris's disease (HCC); Hypercalcemia Start: 05-31-2023 End: 05-31-2023 ambulatory Kole El PT Work Phone: [facility] Comment on above: Gait abnormality (Pr imary Dx); Physical deconditioning; Weakness Start: 05-24-2023 End: 05-26-2023 ambulatory Rocio Elizalde APRN.SUPPLY PERSON Work Phone: [facility] Start: 05-24-2023 Evaluation and management of inpatient Rocio Elizalde APRN.SUPPLY PERSON Work Phone: [facility] [place] Comment on above: is inpatient a dana IRA KRYSTEN Start: 05-24-2023 End: 05-26-2023 Evaluation and management of inpatient [facility] Start: 05-23-2023 End: 05-24-2023 Emergency department patient visit Dr. Amos Floyd Work Phone: [facility]-Emergency Department Work Phone: Start: 05-23-2023 Telephone encounter Hung Freed MD Work Phone: Family [facility] Comment on above: Results Start: 05-23-2023 End: 05-23-2023 Patient encounter procedure Rocio Jorge Fide WAREHOUSE PACKER.SUPPLY PERSON Work Phone: [facility] [place] Comment on above: Hypercalcemia (Prima ry Dx); Fatigue, unspecified type; Urinary frequency; Myalgias; Confusion; Weakness Start: 05-22-2023 Telephone encounter Amos maria MD Work Phone: [facility] [place] Comment on above: Patient Question Start: 05-19-2023 ambulatory Amos salazar MD Work Phone: [facility] Start: 05-19-2023 Follow-up encounter Amos maria MD Work Phone: [facility] [place] Comment on above: Zometa medication/ E R visit followup care. Start: 05-15-2023 End: 05-15-2023 Emergency department patient visit Dr. Amos Floyd Work Phone: [facility]-Emergency Department Work Phone: Start: 05-15-2023 Telephone encounter Amos maria MD Work Phone: Internal [facility] Comment on above: Patient Update Start: 05-09-2023 End: 05-09-2023 ambulatory José Shi PT, DPT [facility] Comment on above: Gait abnormality (Pr imary Dx); Hip pain, unspecified laterality; Closed displaced fracture of fifth metatarsal bone of right foot with delayed healing, subsequent encounter Start: 05-02-2023 End: 05-02-2023 ambulatory José Shi PT, DPT [facility] Comment on above: Gait abnormality (Pr imary Dx); Hip pain, unspecified laterality; Closed displaced fracture of fifth metatarsal bone of right foot with delayed healing, subsequent encounter Start: 2023 End: 04-20-[address] Amos Floyd Work Phone: [facility] Work Phone: Start: 2023 End: 04-20-[address] Amos Floyd Work Phone: [facility]-Laboratory Work Phone: Start: [address] Jenni Floyd Work Phone: [facility] Work Phone: Start: 04-11-2023 End: 04-11-2023 ambulatory Kole El PT Work Phone: [facility] Comment on above: Gait abnormality (Pr imary Dx); Hip pain, unspecified laterality; Closed displaced fracture of fifth metatarsal bone of right foot with delayed healing, subsequent encounter Start: 04-10-2023 Non-patient / Non-visit Dr. Atiya Floyd Work Phone: [facility] Start: 04-10-2023 End: 04-10-[address] Amos Floyd Work Phone: [facility] Work Phone: Start: 04-10-2023 End: 04-10-[address] Amos Floyd Work Phone: [facility]-Cardiovascula r Services Work Phone: Start: 04-04-2023 End: 04-04-[address] Amos Floyd Work Phone: [facility] Work Phone: Start: 04-04-2023 End: 04-04-[address] Amos Floyd Work Phone: [facility]-Laboratory, Phy Office 3rd Flr Start: 04-03-2023 End: 04-03-2023 ambulatory Kole El PT Work Phone: [facility] Comment on above: Gait abnormality (Pr imary Dx); Hip pain, unspecified laterality; Closed displaced fracture of fifth metatarsal bone of right foot with delayed healing, subsequent encounter Start: 03-28-[address] [facility] Start: 03-28-2023 End: 03-28-2023 ambulatory Kole El PT Work Phone: [facility] Comment on above: Gait abnormality (Pr imary Dx); Hip pain, unspecified laterality; Closed displaced fracture of fifth metatarsal bone of right foot with delayed healing, subsequent encounter Start: 03-23-2023 ambulatory Omar bernardo Work Phone: Podiatry Comment on above: xrays Start: 03-23-2023 E-mail encounter fro m caregiver Omar Cruz Work Phone: [facility] Start: 03-03-2023 End: 03-03-[address] Amos Floyd Work Phone: [facility] Work Phone: Start: 02-24-2023 End: 02-24-[address] Amos Floyd Work Phone: [facility] Work Phone: Start: 02-24-2023 End: 02-24-[address] [facility] Start: 02-08-2023 End: 02-19-[address] Amos Floyd Work Phone: [facility] Work Phone: Start: 02-08-2023 End: 02-19-[address] [facility] Start: 01-19-2023 End: 01-19-2023 Patient encounter procedure Amos Floyd MD Work Phone: [facility] [place] Comment on above: Medicare annual well ness visit, subsequent (Primary Dx); Primary hypertension; Pure hypercholesterolemia; Atopic neurodermatitis; Adrenal hypofunction (HCC); Disorder of autonomic nervous system; Stage 3b chronic kidney disease (HCC); Age-related osteoporosis with current pathological fracture with routine healing; Need for COVID-19 vaccine; Hypercalcemia Start: 01-18-2023 End: 01-18-2023 Subsequent hospital visit by physician Xr [facility] [employer] Work Phone: Radiology Comment on above: Closed displaced fra cture of fifth metatarsal bone of right foot, initial encounter [U75.351A] Start: 12-23-2022 End: 01-19-[address] Amos Floyd Work Phone: [facility] Work Phone: Start: 12-23-2022 End: 01-19-[address] Amos Floyd Work Phone: [facility] Work Phone: Start: 12-19-2022 End: 12-19-2022 Patient encounter procedure Omar Eduardolakeisha Work Phone: Podiatry Comment on above: Closed displaced fra cture of fifth metatarsal bone of right foot, initial encounter (Primary Dx) Start: 12-19-2022 End: 12-19-2022 Subsequent hospital visit by physician Xr [facility] [employer] Work Phone: Radiology Comment on above: Closed displaced fra cture of fifth metatarsal bone of right foot, initial encounter [S92.351A] Start: 12-08-2022 End: 12-08-[address] Amos Floyd Work Phone: [facility] Work Phone: Start: 12-08-2022 End: 12-08-[address] Amos Floyd Work Phone: [facility] Work Phone: Start: 12-02-2022 Refill Amos salazar MD Work Phone: [phone] [place] [address] Comment on above: Refill Request Start: 12-01-2022 End: 12-01-2022 Subsequent hospital visit by physician Dao [facility] [place] [employer] Work Phone: Radiology Comment on above: Closed displaced fra cture of fifth metatarsal bone of right foot, initial encounter [S92.351A] Start: 11-25-2022 End: 11-25-[address] Amos Floyd Work Phone: [facility] Work Phone: Start: 11-24-2022 End: 11-24-[address] Amos Floyd Work Phone: [facility] Work Phone: Start: 11-08-2022 End: 11-08-2022 Subsequent hospital visit by physician Dao [facility] [place] Work Phone: Radiology Comment on above: Foot pain, right [M7 9.671] Start: 11-08-2022 End: 11-08-2022 Patient encounter procedure Jacinda Enriquez APRN.SUPPLY PERSON Work Phone: [facility] Comment on above: Foot pain, right (Pr imary Dx); Closed fracture of right foot, initial encounter Start: 11-01-2022 End: 11-01-2022 ambulatory Kole El PT Work Phone: [facility] Comment on above: Hip pain, unspecifie d laterality [M25.559] (Primary Dx) Start: 10-26-2022 End: 10-26-[address] Amos Floyd Work Phone: [facility] Work Phone: Start: 10-26-2022 End: 10-26-[address] Amos Floyd Work Phone: [facility] Work Phone: Start: 10-26-2022 End: 10-26-2022 Subsequent hospital visit by physician Dao [facility] [place] Work Phone: Radiology Comment on above: Hip pain, unspecifie d laterality [M25.559] Start: 10-26-2022 End: 10-26-2022 Patient encounter procedure Amos Floyd MD Work Phone: [facility] [place] Comment on above: Hip pain, unspecifie d laterality (Primary Dx); Stage 3b chronic kidney disease (HCC); Deep vein thrombosis (DVT) of lower extremity, unspecified chronicity, unspecified laterality, unspecified vein (HCC); Need for influenza vaccination Start: 10-11-2022 End: 10-11-[address] Amos Floyd Work Phone: [facility] Work Phone: Start: 10-11-2022 End: 10-11-[address] [facility] Start: 09-19-2022 Refill Nevin Brooks Work Phone: Dermatology Comment on above: Refill Request Start: 09-12-2022 End: 09-19-[address] Amos Floyd Work Phone: [facility] Work Phone: Start: 09-12-2022 End: 09-19-[address] Amos [facility] Start: 08-11-2022 End: 08-11-[address] Amos Floyd Work Phone: [facility] Work Phone: Start: 08-11-2022 End: 08-11-[address] [facility] Start: 08-04-2022 End: 08-04-[address] Amos Floyd Work Phone: [facility] [facility] Work Phone: Start: 07-27-2022 Telephone encounter Ryan rick MD Work Phone: Dermatology Comment on above: Epic Ambulatory Analyst - O ther Start: 07-26-2022 End: 07-26-[address] [facility]os [facility] Start: 07-22-2022 Telephone encounter Ryan rick MD Work Phone: Dermatology Comment on above: Patient Question Start: 07-20-2022 End: 07-20-2022 Patient encounter procedure Rocio Johnson APRN.SUPPLY PERSON Work Phone: [facility] [place] Comment on above: Primary hypertension (Primary Dx); Pure hypercholesterolemia; Stage 3b chronic kidney disease (HCC); ASHD (arteriosclerotic heart disease); Osteopenia, unspecified location Start: 07-08-2022 End: 07-20-[address] Amos Floyd Work Phone: [facility] Work Phone: Start: 07-08-2022 End: 07-20-[address] [facility] Start: 06-07-2022 End: 06-07-[address] Amos Floyd Work Phone: [facility] Work Phone: Start: 06-07-2022 End: 06-07-[address] [facility] Start: 05-31-2022 End: 05-31-[address] Amos Floyd Work Phone: [facility] Work Phone: Start: 05-31-2022 End: 05-31-[address] Amos Floyd Work Phone: [facility] Start: 05-27-2022 End: 05-27-[address] Amos Floyd Work Phone: [facility] Start: 05-25-2022 End: 05-25-2022 Patient encounter procedure Ryan Gale MD Work Phone: Dermatology Comment on above: Atopic neurodermatit is (Primary Dx) Start: 05-09-2022 End: 05-20-[address] Amos Floyd Work Phone: [facility] Work Phone: Start: 05-09-2022 End: 05-20-[address] [facility] Start: 03-25-2022 Non-patient / Non-visit Dr. Atiya Floyd Work Phone: [facility] Start: 03-25-2022 End: 03-25-[address] Amos Floyd Work Phone: [facility] Work Phone: Start: 03-25-2022 End: 03-25-[address] [facility]os [facility] Start: 03-15-2022 Telephone encounter Ryan rick MD Work Phone: Dermatology Comment on above: Insurance Authorizat ion ([employer]) Start: 03-14-2022 Refill Ryan Gaitan Work Phone: Dermatology Comment on above: Refill Request Start: 03-10-2022 End: 03-10-[address] Amos Floyd Work Phone: [facility] Work Phone: Start: 03-10-2022 End: 03-10-[address] Amos Floyd [facility] Start: 02-23-2022 End: 02-23-2022 Patient encounter procedure Ryan Gale MD Work Phone: Dermatology Comment on above: Atopic neurodermatit is (Primary Dx) Start: 02-15-2022 End: 02-15-[address] Amos Floyd Work Phone: [facility] Work Phone: Start: 02-15-2022 End: 02-15-[address] Amos Floyd Work Phone: [facility] Start: 01-27-[address] Jenni Floyd Work Phone: [facility] Start: 01-25-2022 End: 01-25-[address] Amos Floyd Work Phone: [facility] Work Phone: Start: 01-25-2022 End: 01-25-[address] Amos Floyd Work Phone: [facility] Start: 12-28-2021 End: 01-19-[address] Amos Floyd Work Phone: [facility] Work Phone: Start: 12-28-2021 End: 01-19-[address] [facility] Start: 12-20-2021 End: 12-20-2021 Patient encounter procedure Rocio Older WAREHOUSE PACKER.SUPPLY PERSON Work Phone: [facility] [place] Comment on above: Medicare annual well ness visit, subsequent (Primary Dx); Hypertension, unspecified type; Pure hypercholesterolemia; Encounter for immunization Start: 12-13-2021 End: 12-13-[address] Amos Floyd Work Phone: [facility] Start: 12-08-2021 Documentation procedure Mammog akash Coordinator [facility] Start: 12-08-2021 Letter encounter Mammography Coordinator [facility] Department Start: 12-08-2021 End: 12-08-2021 Subsequent hospital visit by physician Screen Mammo [facility] Comment on above: Encounter for screen ing mammogram for malignant neoplasm of breast [Z12.31] Start: 12-06-2021 End: 12-06-2021 Patient encounter procedure Amos Floyd MD Work Phone: [facility] [place] Comment on above: Hypotension due to h ypovolemia (Primary Dx); Elevated troponin; Acute kidney injury (HCC); Stage 3b chronic kidney disease (HCC); Hypercalcemia; Anticoagulated on Coumadin; Breast pain, left; Encounter for screening mammogram for malignant neoplasm of breast Start: 12-02-2021 Refill Amos salazar MD Work Phone: [address] [place] [address] Comment on above: Refill Request Start: 12-02-2021 End: 12-02-[address] Amos Floyd Work Phone: [facility] Endocrinology Start: 11-26-2021 End: 11-26-[address] Amos Floyd Work Phone: [facility] Out Start: 11-25-2021 End: 11-25-2021 Patient encounter procedure Ryan Gale MD Work Phone: Dermatology Comment on above: Atopic neurodermatit is (Primary Dx) Start: 11-24-2021 End: 11-24-[address] Amos Floyd Work Phone: [facility] Work Phone: Start: 11-24-2021 End: 11-24-[address] Amos Floyd Work Phone: [facility]-Laboratory, Phy Office 3rd Flr Start: 11-18-2021 Non-patient / Non-visit Dr. Atiya Floyd Work Phone: [facility] Inpatient Physicians Start: 11-17-2021 Non-patient / Non-visit Dr. Atiya Floyd Work Phone: [facility]-Pulmonary Medicine [facility] Start: 11-17-2021 Non-patient / Non-visit Dr. Atiya Floyd Work Phone: [facility] Start: 11-17-2021 Non-patient / Non-visit Dr. Atiya Floyd Work Phone: [facility] Inpatient Phys[facility] Start: 11-17-2021 End: 11-18-2021 Evaluation and management of inpatient [facility] Start: 11-02-2021 End: 11-02-[address] Amos Floyd Work Phone: [facility] Work Phone: Start: 11-02-2021 End: 11-02-[address] Amos Floyd Work Phone: [facility]Labor[facility] Start: 11-02-2021 Registered Recurring [facility] Start: 10-28-2021 ambulatory Luciana montes RN Work Phone: [employer] Comment on above: 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 (enrollment/HAH) Start: 10-14-2021 Telephone encounter Jefferson guzman APRN.SUPPLY PERSON Work Phone: [facility] Comment on above: Results Start: 10-13-2021 End: 10-13-2021 Patient encounter procedure Irene Mendenhall APRN.SUPPLY PERSON Work Phone: [facility] Comment on above: Suspected COVID-19 v irus infection (Primary Dx) Start: 09-28-2021 End: 09-28-[address] Amos Floyd Work Phone: [facility] Work Phone: Start: 09-28-2021 End: 09-28-[address] Amos Floyd Work Phone: [facility] Start: 08-30-2021 End: 09-19-[address] Amos Floyd Work Phone: [facility] Start: 08-25-2021 End: 08-25-2021 Patient encounter procedure Nevin Lee PA-C Work Phone: Dermatology Comment on above: Atopic neurodermatit is (Primary Dx) Start: 07-26-2021 End: 07-26-[address] Amos Floyd Work Phone: [facility] Start: 07-20-2021 End: 07-20-2021 Patient encounter procedure Amos Floyd MD Work Phone: [facility] [place] Comment on above: Adrenal hypofunction (HCC) (Primary Dx); Primary hypertension; ASHD (arteriosclerotic heart disease); Hip pain; Need for COVID-19 vaccine Start: 07-12-2021 End: 07-12-[address] Amos Floyd Work Phone: [facility] Start: 06-25-2021 End: 06-25-[address] Amos Floyd Work Phone: [facility] Start: 05-27-2021 End: 05-27-[address] Amos Floyd Work Phone: [facility] Start: 05-27-2021 End: 05-27-[address] Amos Floyd Work Phone: [facility] Start: 05-27-[address] Jenni Floyd Work Phone: [facility] Start: 04-29-2021 End: 05-20-[address] [facility]os [facility] Start: 04-28-2021 Non-patient / Non-visit Dr. Atiya Floyd Work Phone: [facility] Start: 04-28-2021 End: 04-28-[address] Amos Floyd Work Phone: [facility] Start: 2021 End: [address] Amos Floyd Work Phone: [facility] [facility] Start: 03-31-2021 End: 03-31-[address] Amos Floyd Work Phone: [facility] Start: 03-02-2021 End: 03-22-[address] [facility]os [facility] Start: 02-01-2021 End: 02-20-[address] Amos Floyd Work Phone: [facility] Start: 04-28-2020 Evaluation and management of inpatient ARUNBerny CALERO Facility:[facility] Start: 01-17-2018 Ambulatory [facility] Facility :[facility] Start: 01-17-2017 End: 01-17-2017 Ambulatory [facility] Facility:[facility] Start: 04-09-2009 End: 05-14-2009 Patient encounter status Kole El PT Work Phone: [facility] Procedures Date Procedure Procedure Detail Performing Clinician Start: 12-10-2024 Us retroperitoneal r eal time w/image complete MEMO CANAS Work Phone: Start: 12-03-2024 Serum inorganic phos phate measurement MEMO CANAS Work Phone: Start: 11-28-2024 Echo tthrc r-t 2d w/wom-mode compl spec&colr d Dylon Gupta WAREHOUSE PACKER - SUPPLY PERSON Work Phone: Start: 11-28-2024 Adult depression scr eening assessment Basim Joel WAREHOUSE PACKER - SUPPLY PERSON Work Phone: Start: 10-31-2024 Basic metabolic pane l calcium total Basim Joel WAREHOUSE PACKER - SUPPLY PERSON Work Phone: Start: 10-29-2024 Ecg routine ecg w/le ast 12 lds i&r only [facility] Provider Start: 10-24-2024 TTE w or wo fol wcon,Doppler Dylon Gupta WAREHOUSE PACKER - SUPPLY PERSON Work Phone: Start: 10-24-2024 Ecg routine ecg w/le ast 12 lds trcg only w/o i&r Dylon Gupta WAREHOUSE PACKER - SUPPLY PERSON Work Phone: Start: 10-24-2024 Basic metabolic pane l calcium total Dylon Gupta WAREHOUSE PACKER - SUPPLY PERSON Work Phone: Start: 10-23-2024 Echo transthorc r-t 2d w/wo m-mode rec f-up/lmtd Memo Canas MD Work Phone: Start: 10-23-2024 Ecg routine ecg w/le ast 12 lds trcg only w/o i&r Dylon Gupta WAREHOUSE PACKER - SUPPLY PERSON Work Phone: Start: 10-23-2024 Basic metabolic pane l calcium total Dylon Gupta WAREHOUSE PACKER - SUPPLY PERSON Work Phone: Start: 10-23-2024 OXYGEN THERAPY Dylon soria WAREHOUSE PACKER - SUPPLY PERSON Work Phone: Start: 10-23-2024 Cardiac catheterizat ion study Memo Canas MD Work Phone: Start: 10-23-2024 POCT ACT Memo krishna MD Work Phone: Start: 10-23-2024 Blood typing serologic abo Memo Canas MD Work Phone: Start: 10-23-2024 End: 10-23-2024 TRANSCATHETER AORTIC VALVE REPLACEMENT (TAVR) - OR William Self DO Work Phone: Start: 10-23-2024 Radiologic exam ches t single view Dylon Gupta WAREHOUSE PACKER - SUPPLY PERSON Work Phone: Start: 10-23-2024 Antibody screen BALDO JARRETT Comment on above: Performed By: #### L [id number] ####Telegraph Lineman: JAQUELIN RICO ([phone])[facility] ([facility])[address] [place] [address] Start: 10-23-2024 Blood typing serologic abo Dylon Gupta WAREHOUSE PACKER - SUPPLY PERSON Work Phone: Start: 09-29-2024 Ecg routine ecg w/le ast 12 lds w/i&r Memo Canas MD Work Phone: Start: 09-19-2024 Ecg routine ecg w/le ast 12 lds trcg only w/o i&r Memo Canas MD Work Phone: Start: 09-19-2024 BLADDER SCAN Arelis gonzalez WAREHOUSE PACKER.SUPPLY PERSON Work Phone: Start: 09-19-2024 Ct angiography chest w/contrast/noncontrast Dylon Gupta WAREHOUSE PACKER - [facility] Work Phone: Start: 09-19-2024 Culture bacterial quanttative colony count urine Arelis Smith WAREHOUSE PACKER.SUPPLY PERSON Work Phone: Start: 09-19-2024 Urnls dip stick/tabl et rgnt auto w/o microscopy Arelis Smith WAREHOUSE PACKER.SUPPLY PERSON Work Phone: Start: 08-29-2024 Urnls dip stick/tabl [...] PFIZER-BIONTECH COVI D-19 VACCINE AGE 12+ YR ([facility]) Amos Floyd MD Work Phone: Start: 07-23-2024 X-ray of chest, PA a nd lateral views Dr. Amos Floyd MD Work Phone: Start: 04-03-2024 Assay of phosphorus inorganic Dr. Amos Floyd MD Work Phone: Start: 04-03-2024 Measurement of renal function Dr. Amos Floyd MD Work Phone: Comment on above: GFR Calc Start: 01-23-2024 PFIZER-BIONTECH COVI D-19 VACCINE AGE 12+ YR ([facility]) Amos Floyd MD Work Phone: Start: [...] metabolic panel calcium total Raisa James Frederick WAREHOUSE PACKER-SUPPLY PERSON Work Phone: Start: 05-26-2023 EXTRA TUBES Jazmine Britt MD Work Phone: Start: 05-26-2023 LAVENDER TOP Jazmine Britt MD Work Phone: Start: 05-26-2023 PST TOP Jazmine Britt MD Work Phone: Start: 05-26-2023 SST TOP Jazmine Britt MD Work Phone: Start: 05-25-2023 CALCIUM, IONIZED LEONARDOZA MANCY Start: 05-25-2023 Calcium ionized Dallasi chaparro Frederick WAREHOUSE PACKER-SUPPLY PERSON Work Phone: Start: 05-25-2023 PROTIME-INR HAMZA MANC Y Start: 05-25-2023 EXTRA TUBES HAMZA MANC Y Start: 05-25-2023 Hemoglobin A1c/Hemoglobin.total in Blood HAMZA MANCY Start: 05-25-2023 LAVENDER TOP HAMZA MANC Y Start: 05-25-2023 PST TOP HAMZA MANC Y Start: 05-25-2023 SST TOP HAMZA MANC Y Start: 05-25-2023 EXTRA TUBES Jazmine Britt MD Work Phone: Start: 05-25-2023 End: 05-25-2023 Hemoglobin glycosylated a1c Raisa may WAREHOUSE PACKER-SUPPLY PERSON Work Phone: Start: 05-25-2023 LAVENDER TOP Jazmine [...] 05-24-2023 Comprehensive metabo lic panel Shakira Antunez WAREHOUSE PACKER-SUPPLY PERSON Work Phone: Start: 05-24-2023 EXTRA TUBES Elisa [...] End: 05-24-2023 Comprehensive metabolic panel Shakira Antunez WAREHOUSE PACKER-SUPPLY PERSON Work Phone: Start: 05-23-2023 Plain chest X-ray Dr. Mt Floyd Work Phone: Start: 05-23-2023 Urnls dip stick/tabl et rgnt auto w/o microscopy Rocio Elizalde WAREHOUSE PACKER.SUPPLY PERSON Work Phone: Start: 05-15-2023 CT of chest, abdomen and pelvis without contrast Dr. Amos Floyd Work Phone: Start: 05-15-2023 Plain chest X-ray Dr. Mt Floyd Work Phone: Start: 01-19-2023 [facility] COVI D-19 VACCINE (2022- SEASON) AGE 12+ YR Amos Floyd MD Work Phone: Start: 12-19-2022 Radex foot complete minimum 3 views Omar Cruz Work Phone: Start: 12-01-2022 Radex foot complete minimum 3 views Omar Cruz Work Phone: Start: 11-08-2022 Radex foot complete minimum 3 views Jacinda Enriquez WAREHOUSE PACKER.SUPPLY PERSON Work Phone: Start: 10-26-2022 Radex hips bilateral with pelvis minimum 5 views Amos Floyd MD Work Phone: Start: 10-26-2022 INFLUENZA VACCINE, P RSV FREE, AGE 65+ YR, HIGH DOSE, QUADRIVALENT (FLUZONE HIGH-DOSE) Amos Floyd MD Work Phone: Start: 12-20-2021 PFIZER-BIONTECH COVI D-19 BIVALENT BOOSTER VACCINE, AGE 12+ YR Rocio Older WAREHOUSE PACKER.SUPPLY PERSON Work Phone: Start: 12-08-2021 Screening mammograph y [...] DTaP/Tdap/Td Vaccines (2 - Td or Tdap) [facility] Start: 11-10-2029 Urine microalbumin profile [facility] Start: 10-25-2027 Diabetes Screening Diabetes Screening [facility] Start: 07-06-2027 Diabetes Screening Diabetes Screening [facility] Start: 01-31-2027 Diabetes Screening Diabetes Screening [facility] Start: 11-10-2026 Diabetes Screening Diabetes Screening [facility] Start: 08-30-2026 Diabetes Screening Diabetes Screening [facility] Start: 06-30-2026 Diabetes Screening Diabetes Screening [facility] Start: 06-12-2026 Diabetes Screening Diabetes Screening [facility] Start: 06-10-2026 Diabetes Screening Diabetes Screening [facility] Start: 06-07-2026 Diabetes Screening Diabetes Screening [facility] Start: 05-25-2026 Diabetes Screening Diabetes Screening [facility] Start: 05-22-2026 Diabetes Screening Diabetes Screening [facility] Start: 05-11-2026 Diabetes Screening Diabetes Screening [facility] Start: 01-18-2026 Diabetes Screening Diabetes Screening [facility] Start: 12-20-2025 Screening for osteoporosis Bone Density Screening [facility] Start: 11-28-2025 Depression Screening Depression Screening [facility] Start: 11-28-2025 Echocardiography Echocardiogram [facility] Start: 10-31-2025 Creatinine measurement Creatinine Level [facility] Start: 10-31-2025 Diabetes: Estimated Glomerular Filtration Rate for Kidney Health Diabetes: Estimated Glomerular Filtration Rate for Kidney Health [facility] Start: 10-31-2025 Potassium measurement Potassium Level [facility] Start: 10-24-2025 Creatinine measurement Creatinine Level [facility] Start: 10-24-2025 Echocardiography Echocardiogram [facility] Start: 10-24-2025 Potassium measurement Potassium Level [facility] Start: 10-23-2025 Creatinine measurement Creatinine Level [facility] Start: 10-23-2025 Echocardiography Echocardiogram [facility] Start: 10-23-2025 Potassium measurement Potassium Level [facility] Start: 01-31-2025 Creatinine measurement Serum Creatinine [facility] Start: 01-31-2025 Hepatitis B surface antibody level LDL Cholesterol [facility] Start: 01-22-2025 Annual PCP Team Chronic Disease Visit Annual PCP Team Chronic Disease Visit [facility] Start: 01-22-2025 Anxiety Screening Anxiety Screening [facility] Start: 01-22-2025 Depression Screening Depression Screening [facility] Start: 01-22-2025 End: 01-22-2025 Patient encounter procedure 01/22/2025 8:40 AM EST Office Visit [facility] [place] [address] [place] [address] Amos Floyd MD [address] [place] [address] Annual Medicare Wellness w/6 month follow-up [facility] [place] Comment on above: Annual Medicare Wellness w/6 month nat justinup Start: 01-13-2025 End: 04-14-2025 Comprehensive metabolic 2000 panel - Serum or Plasma COMPREHENSIVE METABOLIC PANEL Lab Routine Pure hypercholesterolemia Expected: 01/13/2025, Expires: 04/14/2025 [facility] Work Phone: Comment on above: Expected: 01/13/2025, Expires: Start: 01-13-2025 End: 04-14-2025 Lipid 1996 panel - Serum or Plasma LIPID PANEL, FASTING Lab Routine Pure hypercholesterolemia Expected: 01/13/2025, Expires: 04/14/2025 [facility] Comment on above: Expected: 01/13/2025, Expires: Start: 01-13-2025 End: 01-13-2025 Nursing evaluation of patient and report 01/13/2025 9:00 AM EST Nurse Visit Family [facility] [address] [place], [place] [phone] Nurse, Md [address] [place], [place] [phone] [facility] [place] Comment on above: [facility] Start: 01-01-2025 End: 01-01-2025 Patient encounter procedure 01/01/2025 10:30 AM EST Office Visit [facility] Cardiology [facility] [address] [place] [phone] Jefferson Adorno MD [address] [place], [place] [phone] [facility] Cardiology [facility] Start: 11-28-2024 End: 11-28-2025 Basic metabolic 1998 panel - Serum or Plasma Basic metabolic panel Lab Routine S/P TAVR (transcatheter aortic valve replacement) Expected: 11/28/2024 (Approximate), Expires: 11/28/[facility] Work Phone: Comment on above: Expected: 11/28/2024 (Approximate), Expi res: 11/28/2025 Start: 11-28-2024 End: 11-28-2024 Patient encounter procedure [facility] [address] [facility]-Invasive Cardiology Start: 11-23-2024 End: 10-24-2026 US Heart Transthoracic Transthoracic echocardiogram (TTE) complete with contrast, bubble, strain, and 3D PRN CV Echocardiography Routine Severe aortic stenosis Expected: 11/23/2024 (Approximate), Expires: 10/24/2026 [facility] Work Phone: Comment on above: Expected: 11/23/2024 (Approximate), Expi res: 10/24/2026 Start: 11-14-2024 End: 11-14-2024 Evaluation of diagnostic study results [facility] Start: 11-10-2024 Creatinine measurement Serum Creatinine [facility] Start: 10-31-2024 End: 10-31-2024 Patient encounter procedure 10/31/2024 11:00 AM EDT Office Visit [facility] [address] [place] [phone] Basim Joel, WAREHOUSE PACKER - SUPPLY PERSON [address] [facility] [address] [place] [address] [facility] Start: 10-29-2024 End: 10-29-2024 Patient encounter procedure 10/29/2024 10:40 AM EDT Office Visit [facility] [place] [address] [place] [id number] Amos Floyd MD [address] [place] [address] 2 month follow-up [facility] [place] Comment on above: 2 month follow-up Start: 10-23-2024 End: 10-23-2024 Patient encounter procedure 10/23/2024 9:00 AM EDT Office Visit [facility] [place] [facility] [address] [place] [phone] Noble Chowdary MD [address] [place] [address] recurent [email or web address] [facility] [place] [facility] [facility] Comment on above: [email or web address] Start: 10-23-2024 End: 10-23-2024 Admission to same day surgery center 10/23/2024 7:30 AM EDT - 10/23/2024 9:15 AM EDT Surgery [facility] MAIN OR [address] [facility] [place] [phone] Memo Canas MD [address] [place] [address] TRANSCATHETER AORTIC VALVE REPLACEMENT, TRANSTHORACIC ECHOCARDIOGRAM [facility] MA[facility] OR Comment on above: TRANSCATHETER AORTIC VALVE REPLACEMENT, TRANSTHORACIC ECHOCARDIOGRAM Start: 10-23-2024 End: 10-23-2024 Anesthesia consultation 10/23/2024 7:30 AM EDT Anesthesia Event [facility] MAIN OR [address] [facility] [place] [phone] Ben Harris, WAREHOUSE PACKER - CONDUIT BENDER [address] [facility] [address] [place] [address] [facility] MA[facility] OR Start: 10-23-2024 Subsequent hospital visit by physician [facility] MA[facility] OR Comment on above: Severe aortic stenosis Start: 10-23-2024 End: 10-23-2024 TRANSCATHETER AORTIC VALVE REPLACEMENT (TAVR) - OR TRANSCATHETER AORTIC VALVE REPLACEMENT (TAVR) - OR Severe aortic stenosis 10/23/2024 7:30 AM EDT [facility] Start: 10-21-2024 Influenza vaccination Influenza Vaccine (#1) [facility] Start: 10-14-2024 End: 10-14-2025 Basic metabolic 1998 panel - Serum or Plasma Basic metabolic panel Lab Routine Severe aortic stenosis Expected: 10/14/2024 (Approximate), Expires: 10/14/2025 [facility] Work Phone: Comment on above: Expected: 10/14/2024 (Approximate), Expi res: 10/14/2025 Start: 10-14-2024 End: 10-14-2025 CBC panel - Blood by Automated count CBC Lab Routine Severe aortic stenosis Expected: 10/14/2024 (Approximate), Expires: 10/14/2025 [facility] Comment on above: Expected: 10/14/2024 (Approximate), Expi res: 10/14/2025 Start: 10-02-2024 End: 10-02-2025 Basic metabolic 1998 panel - Serum or Plasma Basic metabolic panel Lab Routine Renal insufficiency Expected: 10/02/2024 (Approximate), Expires: 10/02/2025 [facility] Work Phone: Comment on above: Expected: 10/02/2024 (Approximate), Expi res: 10/02/2025 Start: 09-26-2024 End: 09-26-2024 Patient encounter procedure 09/26/2024 1:45 PM EDT Appointment Radiology [address] [place], [place] [id number] Recurrent UTI [N39.0]; History of kidney stones [Z87.442] Radiology Comment on above: Recurrent UTI [N39.0]; History of kidney stones [Z87.442] Start: 09-19-2024 End: 09-19-2025 Basic metabolic 1997 panel - Serum or Plasma Basic metabolic panel Lab Routine Aortic valve stenosis, etiology of cardiac valve disease unspecified Expected: 09/19/2024 (Approximate), Expires: 09/19/2025 [facility] Work Phone: Comment on above: Expected: 09/19/2024 (Approximate), Expi res: 09/19/2025 Start: 09-19-2024 End: 09-19-2024 Patient encounter procedure [facility] [address] Start: 09-18-2024 End: 09-03-2025 CBC W Auto Differential panel - Blood CBC auto differential Lab Routine Nonrheumatic aortic valve stenosis Expected: 09/18/2024 (Approximate), Expires: 09/03/2025 [facility] Work Phone: Comment on above: Expected: 09/18/2024 (Approximate), Expi res: 09/03/2025 Start: 09-10-2024 End: 09-03-2025 Basic metabolic 1997 panel - Serum or Plasma Basic metabolic panel Lab Routine Nonrheumatic aortic valve stenosis Expected: 09/10/2024 (Approximate), Expires: 09/03/2025 [email or web address] Comment on above: Expected: 09/10/2024 (Approximate), Expi res: 09/03/2025 Start: 09-03-2024 End: 09-03-2025 CT Chest WO and CT angiogram Coronary arteries W contrast IV CTA Angiogram TAVR Imaging Routine Nonrheumatic aortic valve stenosis Expected: 09/03/2024, Expires: 09/03/2025 [facility] Work Phone: Comment on above: Expected: 09/03/2024, Expires: Start: 08-30-2024 Creatinine measurement Serum Creatinine [facility] Start: 08-29-2024 End: 08-29-2024 Patient encounter procedure 08/29/2024 10:40 AM EDT Office Visit [facility] [place] [address] [place] [address] Amos Floyd MD [address] [place], [place] [phone] 2 week follow-up [facility] [place] Comment on above: 2 week follow-up Start: 08-10-2024 Annual PCP Team Chronic Disease Visit Annual PCP Team Chronic Disease Visit [facility] Start: 08-09-2024 Patient discharge [facility] Start: 08-07-2024 Following clinical pathway protocol [facility] Start: 08-07-2024 Cardiac monitoring [facility] Start: 08-07-2024 Catheterization of vein [facility] Start: 08-07-2024 Notification of physician [facility] Start: 08-07-2024 Vital signs measurements [facility] Start: 08-07-2024 [facility] Start: 08-07-2024 CT Abdomen and Pelvis WO contrast [facility] Start: 08-07-2024 CT of abdomen and pelvis without contrast Abdomen/Pelvis without Cont [facility] Start: 08-07-2024 Measurement of occult blood in stool specimen using immunoassay [facility] Start: 08-07-2024 Admission procedure [facility] Start: 08-07-2024 Hospital admission, emergency, from emergency room, medical nature [facility] Start: 08-07-2024 [facility] Start: 08-07-2024 End: 08-07-2024 [facility] Start: 08-07-2024 Bacteria identified in Blood by Culture Blood Culture [facility] Start: 08-07-2024 Bacteria identified in Urine by Culture Urine Culture [facility] Start: 08-05-2024 Patient discharge [facility] Start: 07-24-2024 End: 07-24-2024 Patient encounter procedure 07/24/2024 11:00 AM EDT Office Visit [facility] [place] [address] [place] [address] Amos Floyd MD [address] [place] [address] 6 month follow up [facility] [place] Comment on above: 6 month follow up Start: 07-23-2024 Catheterization of left heart [facility] Start: 07-23-2024 Covid-19 Vaccine () Covid-19 Vaccine () [facility] Start: 07-23-2024 End: 07-23-2024 Evaluation of diagnostic study results [facility] Start: 07-10-2024 End: 07-10-2024 Nursing evaluation of patient and report 07/10/2024 9:15 AM EDT Nurse Visit [facility] [place] [address] [place] [address] Nurse, Md [address] [place] [address] [facility] [place] Comment on above: [facility] Start: 06-30-2024 Creatinine measurement Serum Creatinine [facility] Start: 06-29-2024 Annual PCP Team Chronic Disease Visit Annual PCP Team Chronic Disease Visit [facility] Start: 06-12-2024 Complete blood count Hemoglobin/Hematocrit [facility] Start: 06-12-2024 Creatinine measurement Serum Creatinine [facility] Start: 06-11-2024 Complete blood count Hemoglobin/Hematocrit [facility] Start: 06-11-2024 Creatinine measurement Serum Creatinine [facility] Start: 06-07-2024 Complete blood count Hemoglobin/Hematocrit [facility] Start: 06-07-2024 Creatinine measurement Serum Creatinine [facility] Start: 05-30-2024 Annual PCP Team Chronic Disease Visit Annual PCP Team Chronic Disease Visit [facility] Start: 05-25-2024 Complete blood count Hemoglobin/Hematocrit [facility] Start: 05-25-2024 Creatinine measurement Serum Creatinine [facility] Start: 05-22-2024 Annual PCP Team Chronic Disease Visit Annual PCP Team Chronic Disease Visit [facility] Start: 05-22-2024 Creatinine measurement Serum Creatinine [facility] Start: 05-11-2024 Creatinine measurement Serum Creatinine [facility] Start: 05-11-2024 DIABETES SCREEN DIABETES SCREEN [facility] Start: 05-11-2024 Diabetes Screening Diabetes Screening [facility] Start: 03-22-2024 Annual PCP Team Chronic Disease Visit Annual PCP Team Chronic Disease Visit [facility] Start: 03-22-2024 BP Controlled (<130/80) BP Controlled (<130/80) [facility] Start: 02-21-2024 Advance Directive Discussion Advance Directive Discussion [facility] Start: 02-21-2024 Medicare Advantage Annual Wellness Visit Medicare [facility] Annual Wellness Visit [facility] Start: 02-01-2024 End: 02-01-2024 Patient encounter procedure 02/01/2024 10:40 AM EST Appointment [facility] [address] [facility] [place] [address] Nodule of lower lobe of right lung [R91.1] [facility] Comment on above: Nodule of lower lobe of right lung [R91. 1] Start: 01-24-2024 End: 04-24-2024 Basic metabolic 2000 panel - Serum or Plasma BASIC METABOLIC PANEL Lab Routine Stage 3b chronic kidney disease (HCC) Expected: 01/24/2024, Expires: 04/24/2024 [facility] Work Phone: Comment on above: Expected: 01/24/2024, Expires: Start: 01-24-2024 End: 04-24-2024 Lipid 1996 panel - Serum or Plasma LIPID PANEL BASIC Lab Routine Pure hypercholesterolemia Expected: 01/24/2024, Expires: 04/24/2024 [facility] Comment on above: Expected: 01/24/2024, Expires: Start: 01-23-2024 End: 01-23-2024 Patient encounter procedure 01/23/2024 9:40 AM EST Office Visit [facility] [place] [address] [place] [address] Amos Floyd MD [address] [place] [address] Medicare Wellness [facility] [place] Comment on above: Medicare Wellness Start: 01-20-2024 Annual PCP Team Chronic Disease Visit Annual PCP Team Chronic Disease Visit [facility] Start: 01-20-2024 BP Controlled (<130/80) BP Controlled (<130/80) [facility] Start: 01-19-2024 Complete blood count Hemoglobin/Hematocrit [facility] Start: 01-19-2024 Creatinine measurement Serum Creatinine [facility] Start: 01-19-2024 Hemoglobin/Hematocrit Hemoglobin/Hematocrit [facility] Start: 01-19-2024 Hepatitis B surface antibody level LDL Cholesterol [facility] Start: 01-19-2024 Serum Creatinine Serum Creatinine [facility] Start: 01-11-2024 End: 01-11-2024 Nursing evaluation of patient and report 01/11/2024 2:00 PM EST Nurse Visit [facility] [place] [address] [place], [place] [address] Nurse, Md [address] [place] [id number] prolia injection already approved. [facility] [place] Comment on above: prolia injection already approved. Start: 12-29-2023 End: 12-29-2023 Patient encounter procedure 12/29/2023 9:30 AM EST Radiology [facility] [address] [place] [id number] [facility] Phone Call [facility] Comment on above: [facility] Phone Call Start: 10-27-2023 ANNUAL PCP TEAM CHRONIC DISEASE VISIT ANNUAL PCP TEAM CHRONIC DISEASE VISIT [facility] Start: 10-27-2023 BP CONTROLLED (<130/80) BP CONTROLLED (<130/80) [facility] Start: 10-22-2023 Covid-19 Vaccine ( season) Covid-19 Vaccine ( season) [facility] Start: 10-22-2023 Covid-19 Vaccine ( season) Covid-19 Vaccine ( season) [facility] Start: 10-22-2023 Influenza [facility] Start: 09-19-2023 End: 09-19-2023 ambulatory 09/19/2023 11:30 AM EDT OT/PT/Speech Visit [facility] [address] [place] [address] Kole El, PT [address] [place] [address] Physical deconditioning [R53.81]; Muscle weakness [M62.81]; Gait abnormality [R26.9] [facility] Comment on above: Physical deconditioning [R53.81]; Muscle weakness [M62.81]; Gait abnormality [R26.9] Start: 09-12-2023 End: 09-12-2023 ambulatory 09/12/2023 11:30 AM EDT OT/PT/Speech Visit [facility] [address] [place] [address] Kole El, PT [address] [place] [address] Physical deconditioning [R53.81]; Muscle weakness [M62.81]; Gait abnormality [R26.9] [facility] Comment on above: Physical deconditioning [R53.81]; Muscle weakness [M62.81]; Gait abnormality [R26.9] Start: 09-08-2023 End: 09-08-2023 ambulatory 09/08/2023 2:30 PM EDT OT/PT/Speech Visit [facility] [address] [place] [address] Kole El, PT [address] [place] [address] Physical deconditioning [R53.81]; Muscle weakness [M62.81]; Gait abnormality [R26.9] [facility] Comment on above: Physical deconditioning [R53.81]; Muscle weakness [M62.81]; Gait abnormality [R26.9] Start: 09-05-2023 End: 09-05-2023 ambulatory 09/05/2023 3:00 PM EDT OT/PT/Speech Visit [facility] [address] [facility] [place] [address] Kole El, PT [address] [place] [address] Physical deconditioning [R53.81]; Muscle weakness [M62.81]; Gait abnormality [R26.9] [facility] Comment on above: Physical deconditioning [R53.81]; Muscle weakness [M62.81]; Gait abnormality [R26.9] Start: 08-30-2023 End: 08-30-2023 ambulatory 08/30/2023 3:00 PM EDT OT/PT/Speech Visit [facility] [address] [facility] [place] [address] Kole El, PT [address] [place] [address] Physical deconditioning [R53.81]; Muscle weakness [M62.81]; Gait abnormality [R26.9] [facility] Comment on above: Physical deconditioning [R53.81]; Muscle weakness [M62.81]; Gait abnormality [R26.9] Start: 08-21-2023 End: 08-21-2023 ambulatory 08/21/2023 11:45 AM EDT OT/PT/Speech Visit [facility] [address] [facility] [place] [address] Margot Gisel, WASHING MACHINE INSTALLER [address] [facility] [address] Physical deconditioning [R53.81]; Muscle weakness [M62.81]; Gait abnormality [R26.9] [facility] Comment on above: Physical deconditioning [R53.81]; Muscle weakness [M62.81]; Gait abnormality [R26.9] Start: 08-15-2023 End: 08-15-2023 Patient encounter procedure 08/15/2023 3:30 PM EDT Office Visit [facility] [address] [place] [phone] Chastity Luke APRN.SUPPLY PERSON [address] [place] [address] Hospital Follow up, elsi. [facility] Comment on above: Hospital Follow up, elsi. Start: 08-11-2023 End: 08-11-2023 Patient encounter procedure 08/11/2023 10:40 AM EDT Office Visit [facility] [place] [address] [place], [place] [address] Amos Floyd MD [address] [place] [address] 6 week follow-up [facility] [place] Comment on above: 6 week follow-up Start: 08-09-2023 End: 08-09-2023 ambulatory 08/09/2023 9:15 AM EDT OT/PT/Speech Visit [facility] [address] [place], [place] [id number] Kole El, PT [address] [place], [place] [id number] R26.9 (ICD-10-CM) - Gait abnormality [facility] Comment on above: R26.9 (ICD-10-CM) - Gait abnormality Start: 08-02-2023 End: 08-02-2023 ambulatory [facility] Comment on above: R26.9 (ICD-10-CM) - Gait abnormality Start: 07-26-2023 End: 07-26-2023 ambulatory [facility] Comment on above: R26.9 (ICD-10-CM) - Gait abnormality Start: 07-21-2023 ANNUAL PCP TEAM CHRONIC DISEASE VISIT ANNUAL PCP TEAM CHRONIC DISEASE VISIT [facility] Start: 07-21-2023 BP CONTROLLED (<130/80) BP CONTROLLED (<130/80) [facility] Start: 07-20-2023 End: 07-20-2023 Patient encounter procedure 07/20/2023 1:40 PM EDT Office Visit [facility] [place] [address] [place] [address] Amos Floyd MD [address] [place] [address] 6 month follow-up [facility] [place] Comment on above: 6 month follow-up Start: 07-19-2023 End: 07-19-2023 ambulatory 07/19/2023 9:00 AM EDT OT/PT/Speech Visit [facility] [address] [place] [facility] [place] [address] Kole El, PT [address] [place] [address] R26.9 (ICD-10-CM) - Gait abnormality [facility] Comment on above: R26.9 (ICD-10-CM) - Gait abnormality Start: 07-11-2023 End: 07-11-2023 ambulatory 07/11/2023 9:00 AM EDT OT/PT/Speech Visit [facility] [address] [place] [facility] [place] [address] Kole El, PT [address] [facility], [place] [address] R26.9 (ICD-10-CM) - Gait abnormality [facility] Comment on above: R26.9 (ICD-10-CM) - Gait abnormality Start: 07-05-2023 End: 07-05-2023 ambulatory 07/05/2023 9:45 AM EDT OT/PT/Speech Visit [facility] [address] [facility] [place] [address] Kole El, PT [address] [place] [address] R26.9 (ICD-10-CM) - Gait abnormality [place] [facility] Comment on above: R26.9 (ICD-10-CM) - Gait abnormality Start: 07-01-2023 End: 09-30-2023 25-hydroxyvitamin D3 [Mass/volume] in Serum or Plasma VITAMIN D 25 HYDROXY Lab Routine Hypercalcemia Age-related osteoporosis with current pathological fracture with routine healing Expected: 07/01/2023, Expires: 09/30/2023 [facility] Comment on above: Expected: 07/01/2023, Expires: Start: 07-01-2023 End: 09-30-2023 Calcium.ionized [Moles/volume] in Blood CALCIUM, IONIZED Lab Routine Hypercalcemia Age-related osteoporosis with current pathological fracture with routine healing Expected: 07/01/2023, Expires: 09/30/2023 [facility] Comment on above: Expected: 07/01/2023, Expires: Start: 07-01-2023 End: 09-30-2023 Comprehensive metabolic 2000 panel - Serum or Plasma COMPREHENSIVE METABOLIC PANEL Lab Routine Hypercalcemia Age-related osteoporosis with current pathological fracture with routine healing Expected: 07/01/2023, Expires: 09/30/2023 [facility] Work Phone: Comment on above: Expected: 07/01/2023, Expires: Start: 07-01-2023 End: 09-30-2023 Cortisol [Mass/volume] in Serum or Plasma CORTISOL, SERUM Lab Routine Hypokalemia Adrenal hypofunction (HCC) Expected: 07/01/2023, Expires: 09/30/2023 [facility] Comment on above: Expected: 07/01/2023, Expires: Start: 07-01-2023 End: 09-30-2023 [facility]END OUT TST 1 [facility] SEND OUT TST 1 Lab Routine Age-related osteoporosis with current pathological fracture with routine healing Expected: 07/01/2023, Expires: 09/30/2023 [facility] Comment on above: Expected: 07/01/2023, Expires: Start: 07-01-2023 End: 09-30-2023 Parathyrin.intact [Mass/volume] in Serum or Plasma PTH INTACT Lab Routine Hypercalcemia Age-related osteoporosis with current pathological fracture with routine healing Expected: 07/01/2023, Expires: 09/30/2023 [facility] Comment on above: Expected: 07/01/2023, Expires: Start: 07-01-2023 End: 09-30-2023 Phosphate [Mass/volume] in Serum or Plasma PHOSPHORUS INORGANIC Lab Routine Hypercalcemia Age-related osteoporosis with current pathological fracture with routine healing Expected: 07/01/2023, Expires: 09/30/2023 [facility] Comment on above: Expected: 07/01/2023, Expires: Start: 06-30-2023 End: 06-30-2023 Patient encounter procedure 06/30/2023 9:40 AM EDT Office Visit [facility] [place] [address] [place] [address] Amos Floyd MD [address] [place], [place] [address] 1 month follow up with Dr. Amor [facility] [place] Comment on above: [address] Amor Start: 06-28-2023 End: 06-28-2023 ambulatory 06/28/2023 11:15 AM EDT OT/PT/Speech Visit [facility] [address] [place] [place], [place] [address] Kole El, PT [address] [place], [place] [address] R26.9 (ICD-10-CM) - Gait abnormality [facility] Comment on above: R26.9 (ICD-10-CM) - Gait abnormality Start: 06-21-2023 End: 06-21-2023 ambulatory 06/21/2023 1:00 PM EDT OT/PT/Speech Visit [facility] [address] [place] [place], [place] [address] Kole El, PT [address] [place] [address] R26.9 (ICD-10-CM) - Gait abnormality [facility] Comment on above: R26.9 (ICD-10-CM) - Gait abnormality Start: 05-23-2023 [facility] Start: 05-23-2023 End: 08-22-2023 Bacteria identified in Urine by Culture [facility] Work Phone: Comment on above: Expected: 05/23/2023, Expires: Start: 05-20-2023 Covid-19 Vaccine () Covid-19 Vaccine () [facility] Start: 05-15-2023 [facility] Start: 02-20-2023 Advance Directive Discussion Advance Directive Discussion [facility] Start: 02-20-2023 Behavioral Health Screening Behavioral Health Screening [facility] Start: 02-20-2023 Depression Assessment Depression Assessment [facility] Start: 01-06-2023 Hepatitis B surface antibody level LDL CHOLESTEROL [facility] Start: 12-21-2022 End: 02-20-2023 CBC panel - Blood by Automated count CBC Lab Routine Primary hypertension Stage 3b chronic kidney disease (HCC) Expected: 12/21/2022 (Approximate), Expires: 02/20/2023 [facility] Work Phone: Comment on above: Expected: 12/21/2022 (Approximate), Expi res: 02/20/2023 Start: 12-21-2022 End: 02-20-2023 Comprehensive metabolic 2000 panel - Serum or Plasma COMP METABOLIC PANEL Lab Routine Pure hypercholesterolemia Primary hypertension Expected: 12/21/2022 (Approximate), Expires: 02/20/2023 [facility] Work Phone: Comment on above: Expected: 12/21/2022 (Approximate), Expi res: 02/20/2023 Start: 12-21-2022 End: 02-20-2023 Lipid 1996 panel - Serum or Plasma LIPID PANEL BASIC Lab Routine Pure hypercholesterolemia Expected: 12/21/2022 (Approximate), Expires: 02/20/2023 [facility] Work Phone: Comment on above: Expected: 12/21/2022 (Approximate), Expi res: 02/20/2023 Start: 12-20-2022 ANNUAL PCP TEAM CHRONIC DISEASE VISIT ANNUAL PCP TEAM CHRONIC DISEASE VISIT [facility] Start: 12-06-2022 ANNUAL PCP TEAM CHRONIC DISEASE VISIT ANNUAL PCP TEAM CHRONIC DISEASE VISIT [facility] Start: 10-21-2022 Covid-19 Vaccine () Covid-19 Vaccine () [facility] Start: 10-21-2022 Influenza vaccination INFLUENZA (#1) [facility] Start: 07-20-2022 ANNUAL PCP TEAM CHRONIC DISEASE VISIT ANNUAL PCP TEAM CHRONIC DISEASE VISIT [facility] Start: 07-20-2022 BP CONTROLLED (<130/80) BP CONTROLLED (<130/80) [facility] Start: 05-11-2022 SERUM CREATININE SERUM CREATININE [facility] Start: 04-19-2022 COVID-19 VACCINE (6 - Pfizer series) COVID-19 VACCINE (6 - Pfizer series) [facility] Start: 02-20-2022 ADVANCE DIRECTIVE DISCUSSION ADVANCE DIRECTIVE DISCUSSION [facility] Start: 02-20-2022 DEPRESSION ASSESSMENT DEPRESSION ASSESSMENT [facility] Start: 12-20-2021 End: 02-19-2022 Lipid 1996 panel - Serum or Plasma LIPID PANEL BASIC Lab Routine Pure hypercholesterolemia Expected: 12/20/2021, Expires: 02/19/2022 [facility] Work Phone: Comment on above: Expected: 12/20/2021, Expires: Start: 11-20-2021 Prothrombin time [facility] Work Phone: Start: 11-19-2021 Prothrombin time [facility] Work Phone: Start: 11-18-2021 Partial thromboplastin time, activated [facility] Work Phone: Start: 11-18-2021 Patient discharge [facility] Work Phone: Start: 11-18-2021 Care planning and problem solving actions [facility] Work Phone: Start: 09-29-2022 Prothrombin time [facility] Work Phone: Start: 11-17-2021 End: 11-17-2021 Following clinical pathway protocol [facility] Work Phone: Start: 11-17-2021 Referral to service [facility] Work Phone: Start: 11-17-2021 Assessment of risk of venous thromboembolism [facility] Work Phone: Start: 11-17-2021 Consultation [facility] Work Phone: Start: 11-17-2021 Continuous pulse oximetry [facility] Work Phone: Start: 11-17-2021 Insertion of catheter into peripheral vein [facility] Work Phone: Start: 11-17-2021 Measuring intake and output [facility] Work Phone: Start: 11-17-2021 Providing care according to standard [facility] Work Phone: Start: 11-17-2021 Vital signs measurements [facility] Work Phone: Start: 11-17-2021 End: 11-17-2021 [facility] Work Phone: Start: 11-17-2021 Verification routine [facility] Work Phone: Start: 11-17-2021 Admission procedure [facility] Work Phone: Start: 11-17-2021 Blood chemistry [facility] Work Phone: Start: 11-17-2021 Patient referral to dietitian [facility] Work Phone: Start: 11-16-2021 [facility] Work Phone: Start: 11-16-2021 End: 11-16-2021 Blood culture [facility] Work Phone: Start: 10-21-2021 Influenza vaccination INFLUENZA (#1) [facility] Start: 10-13-2021 End: 10-27-2021 Influenza virus A and B RNA and SARS-CoV-2 (COVID-19) N gene panel - Respiratory specimen by NAN with probe detection COVID WITH FLUA+B, ROUTINE Microbiology Routine Suspected COVID-19 virus infection Expected: 10/13/2021, Expires: 10/27/2021 [facility] Work Phone: Comment on above: Expected: 10/13/2021, Expires: Start: 10-08-2021 Screening for osteoporosis Bone Density Screening [facility] Start: 09-14-2021 COVID-19 VACCINE (5 - Booster for Pfizer series) COVID-19 VACCINE (5 - Booster for Pfizer series) [facility] Start: 07-28-2021 Adult depression screening assessment DEPRESSION SCREENING [facility] Start: 06-09-2021 Hepatitis B surface antibody level LDL CHOLESTEROL [facility] Start: 05-11-2021 HEMOGLOBIN/HEMATOCRIT HEMOGLOBIN/HEMATOCRIT [facility] Start: 02-20-2021 ADVANCE DIRECTIVE DISCUSSION [facility] Start: 02-20-2021 DEPRESSION ASSESSMENT DEPRESSION ASSESSMENT [facility] Start: 08-30-2019 BP CONTROLLED (<130/80) BP CONTROLLED (<130/80) [facility] in Start: 03-07-2019 Screening for osteoporosis Bone Density Scan [facility] Start: 2003 RSV Vaccine (1 - 1-dose 60+ series) RSV Vaccine (1 - 1-dose 60+ series) [facility] Start: 1961 Anxiety Screening Anxiety Screening [facility] Start: 1961 Depression Screening Depression Screening [facility] Start: 1961 Diabetes: Urine Albumin-Creatinine Ratio for Kidney Health Diabetes: Urine Albumin-Creatinine Ratio for Kidney Health [facility] Start: 1955 Depression Screening Depression Screening [facility] Start: 1943 Creatinine measurement Creatinine Level [facility] Start: 1943 Echocardiography Echocardiogram [facility] Start: 1943 Lipid panel Lipid Panel [facility] Start: 1943 Medicare Annual Wellness Visit Medicare Annual Wellness Visit (AWV) [facility] Start: 1943 Potassium measurement Potassium Level [facility] Start: 1943 Screening for osteoporosis Bone Density Scan [facility] Anion gap measurement [facility] Work Phone: Bacteria identified in Blood by Culture Blood Culture [facility] Work Phone: Bacteria identified in Urine by Culture BACTERIAL CULTURE, URINE Microbiology Routine Acute cystitis without hematuria 08/14/2024 12:22 PM EDT [facility] Work Phone: Bacteria identified in Urine by Culture BACTERIAL CULTURE, URINE Microbiology Routine History of UTI 08/29/2024 11:32 AM EDT [facility] Work Phone: Basic metabolic 2008 panel with ionized calcium - Serum or Plasma [facility] Bilirubin measuremen t, urine [facility] Work Phone: Bilirubin measuremen t, urine [facility] Blood culture [facility] Work Phone: BUN/Creatinine ratio [facility] Work Phone: Calcium [Mass/volume ] in Serum or Plasma [facility] Work Phone: Carbon dioxide, tota l [Moles/volume] in Serum or Plasma [facility] Work Phone: CBC W Auto Different ial panel - Blood [facility] Chloride [Moles/volu me] in Serum or Plasma [facility] Work Phone: Creatinine [Moles/volume] in Serum or Plasma [facility] Work Phone: End: 02-13-2025 CT Chest WO contrast CT CHEST WO IVCON Radiology Routine Nodule of lower lobe of right lung needing follor up CT 1 Occurrences starting 01/15/2024 until 02/13/2025 [facility] Work Phone: Comment on above: 1 Occurrences starting 01/15/2024 until 02/13/2025 CT Chest WO contrast CT CHEST WO IVCON Radiology Routine Nodule of lower lobe of right lung needing follor up CT 02/01/2024 11:20 AM EST [facility] Work Phone: End: 12-29-2024 DXA Skeletal system.axial Views for bone density DXA-AXIAL SKELETON Radiology Routine Age-related osteoporosis with current pathological fracture with routine healing 1 Occurrences starting 11/30/2023 until 12/29/2024 [facility] Work Phone: Comment on above: 1 Occurrences starting 11/30/2023 until 12/29/2024 ECG 12 lead - CLINIC PERFORMED ECG 12 lead - CLINIC PERFORMED CV ECG Routine Aortic valve stenosis, etiology of cardiac valve disease unspecified 09/19/2024 3:16 PM [facility] Work Phone: ECG COMPLETE ECG COMPLETE ECG 10/29/2024 11:31 AM EDT [facility] Electrocardiogram, 12-lead PRN ACS symptoms Electrocardiogram, 12-lead PRN ACS symptoms ECG Routine As needed until discontinued starting 05/24/2023 [facility] Work Phone: Comment on above: As needed until discontinued starting Glucose [Mass/volume ] in Serum or Plasma [facility] Work Phone: Hematocrit [Volume Fraction] of Blood [facility] Work Phone: Hemoglobin [Mass/vol ume] in Blood [facility] Work Phone: Hemoglobin [Presence ] in Urine [facility] Work Phone: Hemoglobin [Presence ] in Urine [facility] INR in Blood by Coagulation assay [facility] Work Phone: Lactic acid measurement [facility] Leukocytes [#/volume ] in Blood [facility] Work Phone: Mean corpuscular hemoglobin concentration determination [facility] Work Phone: Mean corpuscular hemoglobin determination [facility] Work Phone: Measurement of keton es in urine using dipstick [facility] Work Phone: Measurement of keton es in urine using dipstick [facility] Measurement of renal function [facility] Work Phone: Microscopic urinalysis [facility] Work Phone: Microscopic urinalysis [facility] Neutrophil count [facility] Work Phone: Neutrophil percent differential count [facility] Work Phone: Organism count, microscopic method [facility] End: 05-24-2023 Parathyrin related protein [Moles/volume] [...] until 05/25/2023 Partial thromboplast in time, activated [facility] Work Phone: Partial thromboplast in time, activated [facility] Patient Education Hypercalcemia Dc [facility] Work Phone: Patient referral [facility] Work Phone: pH of Urine [facility] Work Phone: pH of Urine [facility] Platelets [#/volume] in Blood [facility] Work Phone: Potassium [Moles/vol ume] in Serum or Plasma [facility] Work Phone: Prothrombin time [facility] Work Phone: Prothrombin time [facility] Red blood cell count [facility] Work Phone: Red cell distributio n width determination [facility] Work Phone: End: 01-05-2023 Screening mammography bi 2-view breast inc cad TAE SCREENING Radiology Routine Encounter for screening mammogram for malignant neoplasm of breast 1 Occurrences starting 12/06/2021 until 01/05/2023 [facility] Work Phone: Comment on above: 1 Occurrences starting 12/06/2021 until 01/05/2023 Sodium [Moles/volume ] in Serum or Plasma [facility] Work Phone: Specific gravity of Urine [facility] Work Phone: Specific gravity of Urine [facility] TRANSCATHETER AORTIC VALVE REPLACEMENT (TAVR) TRANSCATHETER AORTIC VALVE REPLACEMENT (TAVR) Severe aortic stenosis [facility] TRANSCATHETER AORTIC VALVE REPLACEMENT (TAVR) - OR TRANSCATHETER AORTIC VALVE REPLACEMENT (TAVR) - OR Severe aortic stenosis [facility] Troponin T.cardiac [Mass/volume] in Serum or Plasma by High sensitivity method [facility] Urea nitrogen [Mass/volume] in Serum or Plasma [facility] Work Phone: End: 05-24-2023 Urinalysis complete panel - Urine Urinalysis with Reflex Microscopic Lab Routine Once (Lab) for 1 Occurrences starting 05/24/2023 until 05/24/2023 [facility] Work Phone: Comment on above: Once (Lab) for 1 Occurrences starting until 05/24/2023 Urinalysis, blood, qualitative [facility] Work Phone: Urine culture [facility] Urine dipstick for glucose [facility] Work Phone: Urine dipstick for glucose [facility] Urine dipstick for leukocyte esterase [facility] Work Phone: Urine dipstick for leukocyte esterase [facility] Urine dipstick for nitrite [facility] Work Phone: Urine dipstick for nitrite [facility] Urine dipstick for protein [facility] Work Phone: Urine dipstick for protein [facility] Urine examination [facility] Work Phone: Urine examination [facility] Urine microscopy: epithelial cells [facility] Work Phone: Urine microscopy: epithelial cells [facility] Urine microscopy: re d cells [facility] Urine Microscopy: wh ite cells [facility] Work Phone: Urobilinogen [Presen ce] in Urine [facility] Work Phone: Urobilinogen [Presen ce] in Urine [facility] End: 10-19-2025 US Kidney - bilateral and Urinary bladder US KIDNEY/BLADDER Radiology Routine Recurrent UTI History of kidney stones 1 Occurrences starting 09/19/2024 until 10/19/2025 [facility] Work Phone: Comment on above: 1 Occurrences starting 09/19/2024 until 10/19/2025 Vitamin D, 25-hydrox y measurement [facility] Work Phone: White blood cell count [facility] End: 01-27-2025 XR Chest PA and Lateral XR CHEST 2V FRONTAL/LAT Radiology STAT Abnormal finding of diagnostic imaging 1 Occurrences starting 12/29/2023 until 01/27/2025 [facility] Work Phone: Comment on above: 1 Occurrences starting 12/29/2023 until 01/27/2025 XR Chest PA and Lateral [facility] End: 01-18-2024 XR FOOT GENERAL 3V AP/LAT/OBL RIGHT XR FOOT GENERAL 3V AP/LAT/OBL RIGHT Radiology Routine Closed displaced fracture of fifth metatarsal bone of right foot, initial encounter 1 Occurrences starting 12/19/2022 until 01/18/2024 [facility] Work Phone: Comment on above: 1 Occurrences starting 12/19/2022 until 01/18/2024 XR FOOT GENERAL 3V AP/LAT/OBL RIGHT XR FOOT GENERAL 3V AP/LAT/OBL RIGHT Radiology Routine Closed displaced fracture of fifth metatarsal bone of right foot, initial encounter 01/18/2023 10:52 AM EST [facility] Work Phone: End: 11-25-2023 XR HIP BILATERAL 5V PEL/AP/LAT EACH HIP XR HIP BILATERAL 5V PEL/AP/LAT EACH HIP Radiology Routine Hip pain, unspecified laterality 1 Occurrences starting 10/26/2022 until 11/25/2023 [facility] Work Phone: Comment on above: 1 Occurrences starting 10/26/2022 until 11/25/2023 XR HIP BILATERAL 5V PEL/AP/LAT EACH HIP XR HIP BILATERAL 5V PEL/AP/LAT EACH HIP Radiology Routine Hip pain, unspecified laterality 10/26/2022 2:59 PM EDT [facility] Work Phone: [facility] Immunizations Immunization Date Immunization Notes Care Provider Fa [facility] 10-29-2024 influenza, high dose seasonal, preservative-free Amos Floyd MD Work Phone: [facility] 07-24-2024 COVID-19 vaccine, ag e 12+ yr (PFIZER-BIONTECH COMIRNATY) Amos Floyd MD Work Phone: [facility] 01-23-2024 COVID-19 vaccine, ag e 12+ yr (PFIZER-BIONTECH COMIRNATY) Amos Floyd MD Work Phone: [facility] 01-23-2024 influenza, high dose seasonal, preservative-free Amos Floyd MD Work Phone: [facility] 01-23-2024 influenza virus vacc ine, unspecified formulation Amos Floyd MD Work Phone: [facility] 01-19-2023 COVID-19 vaccine, ag e 12+ yr, season (PFIZER-BIONTECH) Amos Floyd MD Work Phone: [facility] Work Phone: 10-26-2022 influenza (HD-IIV4) vaccine, age 65+ yr, high dose, quadrivalent, PF (FLUZONE HIGH-DOSE) Amos Floyd MD Work Phone: [facility] 10-26-2022 influenza virus vacc ine, unspecified formulation Gisel Frost PTA Work Phone: [facility] 12-20-2021 COVID-19 booster vaccine, age 12+ yr, bivalent (PFIZER-BIONTECH) Rocio Older [employer]HOUSE P[employer]ER.SUPPLY PERSON Work Phone: [facility] 11-18-2021 influenza, injectabl e, quadrivalent, contains preservative Elisa Mcdonough MD Work Phone: [facility] Work Phone: 11-17-2021 influenza, injectabl e, quadrivalent, preservative free Dr. Amos Floyd Work Phone: [facility] 11-17-2021 influenza, seasonal, injectable Dr. Amos Floyd Work Phone: [facility] 07-20-2021 COVID-19 vaccine, ag e 12+ yr (PFIZER-BIONTECH - LOPEZ TOP) Amos Floyd MD Work Phone: [facility] Work Phone: 12-26-2020 SARS-CoV-2, Unspecified Tino Mcdonough MD Work Phone: [facility] Work Phone: 12-09-2020 influenza, injectabl e, quadrivalent, contains preservative Elisa Mcdonough MD Work Phone: [facility] Work Phone: 11-20-2020 influenza, high-dose , quadrivalent vaccine (FLUZONE HIGH DOSE QUADRIVALENT) Amos Floyd MD Work Phone: [facility] Work Phone: 06-19-2020 COVID-19 vaccine, ag e 12+ yr (PFIZER-BIONTECH - PURPLE TOP) Amos Floyd MD Work Phone: [facility] Work Phone: 05-26-2020 COVID-19 vaccine, ag e 12+ yr (PFIZER-BIONTECH - PURPLE TOP) Amos Floyd MD Work Phone: [facility] Work Phone: 02-17-2020 zoster vaccine recombinant Amos Floyd MD Work Phone: [facility] Work Phone: 11-17-2019 influenza, high dose seasonal, preservative-free Amos Floyd MD Work Phone: [facility] 11-17-2019 influenza, high-dose , quadrivalent vaccine (FLUZONE HIGH DOSE QUADRIVALENT) Amos lFoyd MD Work Phone: [facility] Work Phone: 11-17-2019 zoster vaccine recombinant Amos Floyd MD Work Phone: [facility] Work Phone: 11-13-2019 influenza, injectabl e, quadrivalent, contains preservative Elisa Mcdonough MD Work Phone: [facility] Work Phone: 11-11-2019 tetanus toxoid, redu rk diphtheria toxoid, and acellular pertussis vaccine, adsorbed Dr. Amos Floyd Work Phone: [facility] 11-08-[address] Amos Floyd Work Phone: [facility] 11-08-2019 influenza, seasonal, injectable, preservative free Elisa Mcdonough MD Work Phone: [facility] Work Phone: 12-10-2018 influenza, high dose seasonal, preservative-free Amos Floyd MD Work Phone: [facility] Work Phone: 10-21-2018 influenza, injectabl e, quadrivalent, contains preservative Elisa Mcdonough MD Work Phone: [facility] Work Phone: 12-21-2017 pneumococcal vaccine , unspecified formulation Amos Floyd MD Work Phone: [facility] Work Phone: 11-02-2017 influenza, high dose seasonal, preservative-free Amos Floyd MD Work Phone: [facility] Work Phone: 10-27-2015 influenza, seasonal, injectable Amos Floyd MD Work Phone: [facility] 08-19-2015 tetanus and diphther ia toxoids, adsorbed, preservative free, for adult use (5 Lf of tetanus toxoid and 2 Lf of diphtheria toxoid) Amos Floyd MD Work Phone: [facility] 12-03-2014 influenza, high dose seasonal, preservative-free Amos Floyd MD Work Phone: [facility] 10-13-2014 influenza, seasonal, injectable Amos Floyd MD Work Phone: [facility] Work Phone: 10-13-2014 zoster vaccine, live Amos Floyd MD Work Phone: [facility] Work Phone: 03-20-2014 pneumococcal conjuga te vaccine, 13 valent Amos Floyd MD Work Phone: [facility] 11-20-2013 influenza, seasonal, injectable Amos Floyd MD Work Phone: [facility] 11-24-2012 influenza virus vacc ine, unspecified formulation Amos Floyd MD Work Phone: [facility] Work Phone: 11-13-[address] Amos Floyd Work Phone: [facility] 11-13-2012 influenza, seasonal, injectable, preservative free Amos Floyd MD Work Phone: [facility] Work Phone: 11-13-2012 pneumococcal Conjuga te, unspecified formulation Rocio Alex [employer]TELLY Work Phone: [facility] 11-13-2012 pneumococcal polysaccharide vaccine, 23 valent Amos Floyd MD Work Phone: [facility] Work Phone: 11-13-[address] Oniel Floyd Work Phone: [facility] Work Phone: 11-13-2012 pneumococcal vaccine , unspecified formulation Dr. Amos Floyd Work Phone: [facility] 01-06-2012 influenza virus vacc ine, unspecified formulation Amos Floyd MD Work Phone: [facility] Work Phone: 05-03-2009 tuberculin skin test ; purified protein derivative solution, intradermal Xr [place] Work Phone: [facility] 04-16-2009 novel influenza-H1N1 -09, all formulations Amos Floyd MD Work Phone: [facility] 07-18-2008 pneumococcal polysaccharide vaccine, 23 valent Amos Floyd MD Work Phone: [facility] Work Phone: 01-12-2007 influenza virus vacc ine, unspecified formulation Amos Floyd MD Work Phone: [facility] Work Phone: 12-14-2005 influenza virus vacc ine, unspecified formulation Amos Floyd MD Work Phone: [facility] Work Phone: 04-26-2005 tetanus and diphther ia toxoids, adsorbed, preservative free, for adult use (2 Lf of tetanus toxoid and 2 Lf of diphtheria toxoid) Amos Floyd MD Work Phone: [facility] Payers Date Payer Category Payer Medicare O [employer] MEDICARE [id number] 2023 Self-pay [id number] 2023 Medicare (Managed Care) [id number]. [id number] 2023 Private Health Insurance [id number] 2017 Medicare HUMANA MEDICARE HUMANA MEDICARE PPO [id number] 2017-Present [phone] [facility] [id number] [place] [id number] PPO [id number] 2017 Medicare [id number] 2017 Private Health Insurance [id number] 1945 Unknown [id number]. 594 1945 Unknown [id number] 2.16.840.1.463587.3.579.2. 1246 Unknown [id number] 2.840.1.075806.3.579.2. 462 Unknown [id number] 2.16.840.1.811686.3.579.2. 462 Unknown [id number] 2.16.840.1.679508.3.579.2. 462 Unknown [id number] 2.16.840.1.061155.3.579.2. 462 Unknown [id number] 2.16.840.1.831328.3.579.2. 462 Unknown [id number] 2.16.840.1.178820.3.579.2. 462 Unknown [id number] 2.16.840.1.344078.3.579.2. 462 Unknown [id number] 2.16.840.1.173788.3.579.2. 462 Unknown [id number] 2.16.840.1.205059.3.579.2. 462 Unknown [id number] 2.16.840.1.122809.3.579.2. 462 Unknown [id number] 2.16.840.1.516375.3.579.2. 462 Unknown [id number] 2.16.840.1.023903.3.579.2. 462 Unknown [id number] 2.16.840.1.374915.3.579.2. 462 Unknown [id number] 2.16.840.1.827351.3.579.2. 462 Unknown [id number] 2.16.840.1.676228.3.579.2. 462 Unknown [id number] 2.16.840.1.339205.3.579.2. 462 Unknown [id number] 2.16.840.1.909694.3.579.2. 462 Unknown [id number] 2.16.840.1.929121.3.579.2. 462 Unknown [id number] 2.16.840.1.094470.3.579.2. 462 Unknown [id number] 2.16.840.1.311913.3.579.2. 462 Unknown [id number] 2.16.840.1.237736.3.579.2. 462 Unknown [id number] 2.16.840.1.901910.3.579.2. 462 Unknown [id number] 2.16.840.1.686787.3.579.2. 462 Unknown [id number] 2.16.840.1.067372.3.579.2. 462 Unknown [id number] 2.16.840.1.099052.3.579.2. 462 Unknown [id number] 2.16.840.1.412069.3.579.2. 462 Unknown [id number] 2.16.840.1.878670.3.579.2. 462 Unknown [id number] 2.16.840.1.058552.3.579.2. 462 Unknown [id number] 2.16.840.1.566306.3.579.2. 462 Social History Date Type Detail Facility Start: 2021 End: 05-23-2023 Tobacco smoking status MOIS Unknown if ever smoked [facility] Start: 06-20-2020 None [facility] Start: 06-20-2020 Homeless [facility] Start: 06-20-2020 Secondhand [facility] Start: 1945 Sex Assigned At Female [facility] Start: 10-13-2021 End: 09-02-2024 Tobacco smoking status NHIS Never smoked tobacco [facility] Work Phone: Start: 07-20-2021 End: 09-19-2024 Alcohol intake Current non-drinker of alcohol (finding) [facility] Start: 1945 Sex Assigned At Not on file [facility] Start: 07-10-2021 End: 05-24-2023 Exposure to SARS-CoV-2 (event) Not sure [facility] Work Phone: Start: 10-13-2021 End: 09-02-2024 Tobacco use and exposure Smokeless tobacco non-user [facility] Start: 07-20-2022 End: 11-28-2024 History of Social function [facility] Work Phone: Start: 07-20-2022 End: 11-28-2024 Tobacco use panel [facility] Work Phone: Start: 01-22-2012 Adult Depression Screening Assessment 0 [facility] Work Phone: How often to you hav e a drink containing alcohol? Never [facility] Work Phone: How hard is it for y ou to pay for the very basics like food, housing, medical care, and heating Not very hard [facility] Work Phone: In the past 12 month s, was there a time when you were not able to pay the mortgage or rent on time? No [facility] Work Phone: (I/We) worried wheth er (my/our) food would run out before (I/we) got money to buy more. Never true [facility] Start: 09-20-2021 End: 05-20-2024 Sex Female (finding) [facility] Start: 09-03-2024 End: 11-28-2024 Alcoholic beverage intake Lifetime non-drinker (finding) [facility] Medical Equipment Procedure Code Equipment Code Equipment Origin al Text Equipment Identifier Dates Valve Aor Phong 3 Ultra 23mm - [id number] - [id number] Start: 10-23-2024 Device Closure Perclose 6fr - [id number] Start: 10-23-2024 Device Closure Perclose 6fr - [id number] Start: 10-23-2024 Device Closure Vascade 6/7fr - [id number] Start: 10-23-2024 Comment on above: Description: Placed in right IJ Goals Date Patient Goal Desired Activity /State Personal health goal Functional Status Date Assessment Result Facility 11-28-2024 Patient Health Quest ionnaire 2 item (PHQ-2) [Reported] [facility] 08-09-2024 Functional status Chair [facility] Work Phone: 06-13-2023 Are you deaf, or do you have serious difficulty hearing No 06/13/2023 12:43 PM Elizabeth Rolle RN No [facility] 06-13-2023 Are you blind, or do you have serious difficulty seeing, even when wearing glasses No 06/13/2023 12:43 PM Elizabeth Rolle RN No [facility] 06-13-2023 Do you have serious difficulty walking or climbing stairs No 06/13/2023 12:43 PM Elizabeth Rolle RN No [facility] 06-13-2023 Do you have difficul ty dressing or bathing No 06/13/2023 12:43 PM Elizabeth Rolle RN No [facility] 06-13-2023 Because of a physica l, mental, or emotional condition, do you have difficulty doing errands alone such as visiting a physician's office or shopping No 06/13/2023 12:43 PM Elizabeth Rolle RN No [facility] 11-18-2021 Functional status Ambulates [facility] Work Phone: 11-17-2021 Functional status Bedrest [facility] Work Phone: Mental Status Date Assessment Result Facility 08-09-2024 Cognitive function Voice/Name [facility] Work Phone: 08-07-2024 Cognitive function Level Of Cons ciousness Awake;Alert;Appropriate;Fol lows Commands [facility] Work Phone: 06-13-2023 Because of a physica l, mental, or emotional condition, do you have serious difficulty concentrating, remembering, or making decisions No 06/13/2023 12:43 PM Elizabeth Rolle RN No [facility] 05-31-2023 Cognitive function Voice/Name [facility] Work Phone: 05-23-2023 Cognitive function Level Of Cons ciousness Awake;Alert;Appropriate [facility] Work Phone: 05-15-2023 Cognitive function Level Of Cons ciousness Awake;Alert;Appropriate;Fol lows Commands [facility] Work Phone: 11-25-2022 Cognitive function Awake;Alert;A ppropriate;Fol lows Commands [facility] Work Phone: 05-27-2022 Cognitive function Awake;Alert;A ppropriate;Fol lows Commands [facility] Work Phone: 11-26-2021 Cognitive function Awake;Alert;A ppropriate;Fol lows Commands [facility] Work Phone: 11-18-2021 Cognitive function Voice/Name;To uch/Shaking;Li ght Pain;Deep Pain [facility] Work Phone: 11-16-2021 Cognitive function Level Of Cons ciousness Awake;Alert;Appropriate;Fol lows Commands [facility] Work Phone: 05-27-2021 Cognitive function Level Of Cons ciousness Awake;Alert [facility] Work Phone: Clinical Notes 04-20-2009 to 11-28-2024 Basim Joel, [facility] - 11/28/2024 11:00 AM EDDayami Joel, [facility] - 11/28/2024 11:00 AM EDDayami Joel, [facility] - 10/31/2024 11:00 AM EDTPatient Instructions Note Date & Type Note Facility 11-28-2024 History of Presen t illness Narrative Images from the original note were not included. [facility] [address] [address] Dept: [phone] Dept Visit type: Established : 1945 Reason for Visit: Cardiac Valve Problem Assessment and Plan 1. Chronic systolic heart failure (HCC) Class III. Category C Continue metoprolol. Resume Lisinopril 5 mg daily. I will have her see the heart failure team given her severe LV dysfunction, Wharton's disease, and CKD. 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 Na/K have remained [...] mm Hg). She had an admission at [facility] in July for UTI after heart [...] specialty: Independent interpretation of tests: Basim Joel, [employer] - SUPPLY PERSON [1] Allergies Allergen Reactions Amlodipine Swelling Ciprofloxacin [...] Rfl: [3] Past Medical History: Diagnosis Date Wharton anemia 2010 [4] Past Surgical History: Procedure Laterality Date BLADDER REPAIR CARDIAC CATHETERIZATION N/A 10/23/2024 Performed by Memo Canas MD at [facility] OR CYSTECTOMY (HISTORICAL) LAPAROSCOPIC NEPHRECTOMY (HISTORICAL) Left TOTAL ABDOMINAL HYSTERECTOMY [5] Family History Problem Relation Name Age of Onset Heart attack Mother Stroke Father documented in this encounter [facility] 11-28-2024 History of Presen t illness Narrative Images from the original note were not included. [facility] - [address] [address] Dept: [phone] Dept Visit type: Established : 1945 Reason for Visit: Cardiac Valve Problem Assessment and Plan 1. Chronic systolic heart failure (HCC) Class III. Stage C Continue metoprolol. Resume Lisinopril 5 mg daily. I will have her see the heart failure team given her severe LV dysfunction, Wharton's disease, and CKD. 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 Na/K have remained stable [address] Adorno- est heart failure Subjective Ms Peralta is an 79 yr old female known to Dr. 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 She had an admission at [facility] in July for UTI after heart [...] specialty: Independent interpretation of tests: Basim Joel, W[employer]HOUSE P[employer]ER - SUPPLY PERSON [1] Allergies Allergen Reactions Amlodipine Swelling Ciprofloxacin [...] 10/23/2024 Performed by Memo Canas MD at [facility] OR CYSTECTOMY (HISTORICAL) LAPAROSCOPIC NEPHRECTOMY (HISTORICAL) Left TOTAL ABDOMINAL HYSTERECTOMY [5] Family History Problem Relation Name Age of Onset Heart attack Mother Stroke Father documented in this encounter [facility] 11-14-2024 Progress note [facility] 10-31-2024 History of Present illness Narrative Images from the original note were not included. [facility] CARDIOLOGY - [address] [address] Dept: [phone] Dept Visit type: Established : 1945 Reason [...] a PMH for CAD, HPL, DVT, PE, Wharton's disease, CKD s/p left nephrectomy (donated) and [...] Rfl: [3] Past Medical History: Diagnosis Date Wharton anemia 2010 [4] Past Surgical History: Procedure Laterality Date BLADDER REPAIR CARDIAC CATHETERIZATION N/A 10/23/2024 Performed by Memo Canas MD at [facility] OR CYSTECTOMY (HISTORICAL) LAPAROSCOPIC NEPHRECTOMY (HISTORICAL) Left TOTAL ABDOMINAL HYSTERECTOMY [5] Family History Problem Relation Name Age of Onset Heart attack Mother Stroke Father documented in this encounter [facility] 10-31-2024 Instructions LIDIA Patel CNP - 10/31/2024 11:00 AM EDT If weight gain greater than 3lbs/24 hours or > 5lbs in one week. Take 1/2 Lasix (furosemide) documented in this encounter [facility] 10-31-2024 Miscellaneous Notes Addended by: JAQUELIN MONCADA on: 10/31/2024 02:58 PM Modules accepted: Orders documented in this encounter [facility] 10-31-2024 Note Addended by: JAQUELIN CARBONE on: 10/31/2024 02:58 PM Modules accepted: Orders [facility] 10-31-2024 Note Addended by: JAQUELIN CARBONE on: 10/31/2024 02:58 PM Modules accepted: Orders [facility] 10-29-2024 Note HNO ID: [id number] Author: AMOS FLOYD MD Service: ? Author Type: Physician Type: Progress Notes Filed: 10/29/2024 12:03 Note Text: Subjective Linda Peralta is a 79 year old female here with her daughter. She had TAVR at [facility] last week. She had some fluid retention prior to surgery and was prescribed furosemide 40 mg daily for 3 days with weight loss of around 20 pounds. She started regaining weight and was again advised 2 days of furosemide last week. Echo last week showed EF dropped to 20%. They have another echocardiogram scheduled. She has a follow up with [facility] this , and the [facility] [facility] later this month. ACTIVE PROBLEM [...] I35.0 - See #1. Amos Floyd MD [facility] 10-29-2024 History of Present illness Narrative Subjective Linda Peralta is a 79 year old female here with her daughter. She had TAVR at [facility] last week. She had some fluid retention prior to surgery and was prescribed furosemide 40 mg daily for 3 days with weight loss of around 20 pounds. She started regaining weight and was again advised 2 days of furosemide last week. Echo last week showed EF dropped to 20%. They have another echocardiogram scheduled. She has a follow up with [facility] this , and the [facility] later this month. ACTIVE PROBLEM [...] Amos Floyd MD documented in this encounter [facility] 10-28-2024 Telephone encounter Note Per TVT registry guidelines, 5 meter walk test completed in office on 09/03/24. 7 seconds, 7 seconds, 7 seconds [facility] 10-28-2024 Miscellaneous Notes Per TVT registry guidelines, 5 meter walk test completed in office on 09/03/24. 7 seconds, 7 seconds, 7 seconds Letter refaxed to [phone] along w/ Megcornelios chart note. Confirmation 10/16/24 at 3:07p Confirmed 10/22/2024 at 3:59p Spoke with Dr. Gregory's office to follow-up on IV hydrocortisone dosing. Did not receive fax from last week, confirmed number of [phone]. Requested patient will need to have telephone visit at [address] Gregory to review instructions. Requested to have OV note and letter re-faxed to the above number. Will provide valve clinic fax number so Dr. Gregory's office can fax recommendations back Approved per fax. Scanned in under Media. Approval [id number] Sched on all 3 calendars and requested on Snapboard. Pre TAVR phone call placed. Reviewed, procedure, instructions and meds. Pt verbalizes understanding. Pt knows to call [phone] with any concerns. Patient states she is going to pickling grader Lovenox today. WAREHOUSE PACKER notified to complete prep for proc Diagnosis: Aortic Stenosis Procedure being done: TAVR Date/time of procedure: 10/23/24 at 7:30 am Surgeon: Dr. Canas 2nd surgeon: Dr. Self Admission type: To be admitted Anesthesia: MAC Completed: BMP, CBC, CTA, H&P Date completed: 10/17/24 Additional orders Type and screen AM of proc Labs scanned under Media Requested lab from [place]. She is faxing them to [facility]. Pending on Availity using Survela telephone visit from yesterday. Pending# [id number] Letter and Meggans chart note faxed to [phone] and confirmed PC to Dr. Gregory office. Requesting fax regarding medication recommendation sent to [phone]. Will discuss with Jo Levy. PC to dr Gergory office. Placed on hold and disconnected. Will [...] Lab order faxed to [facility] [phone]/confirmed I need PB to please finish his chart note so I can submit this auth Spoke with patient, she will have labs drawn tomorrow at [place]. Will have office secretary fax lab orders over Reviewed lab work with Butch Gupta APRN, will have patient hold lisinopril until after procedure. Okay to proceed with TAVR, pended case request Spoke with patient verbalized understanding of medication change. Agreed to below procedure date/time. Dx: Severe Aortic stenosis Procedure: TAVR Date/Time: 10/23/24 at 7:30 am Surgeon: Dr. Canas/ Dr. self Location: [facility] Admission: [facility] Anesthesia: DEVANG Levy notified to schedule procedure and obtain insurance auth. Patient scheduled for telephone visit for H&P update and to review bridging instructions 10/16. Reviewed TAVR teach instructions while patient was on the phone. TAVR procedure, instructions reviewed with pt Patient scheduled for TAVR on 10/23/24 at 7:30 am Will report to [facility] by 5:30 am Can park in the [employer] Deck or use Transit Planning Director parking at the [facility] entrance Plan on overnight stay [...] with TAVR. BMP results from 10/03/24 at [place] show creatinine 1.82 with GRF 28. Will have WAREHOUSE PACKER review and place TAVR case request if appropriate documented in this encounter [facility] 10-24-2024 Nurse Note All discharge instructions gone over with pt and family. Med rec revoewed in depth. All restrictions, activity, site care and precautions gone over along with appointments. Saline lock removed. To daughters car via wheelchair, discharged home. [facility] 10-24-2024 Nurse Note All discharge instructions [...] eating her Breakfast. documented in this encounter [facility] 10-24-2024 Note [facility] [address] [address] Dept: [phone] Dept Visit type: Established : 1945 Reason for Visit: Cardiac Valve Problem and Hospital Follow-up Assessment and Plan 1. Severe aortic stenosis S/p TAVR. Contiue Eliquis, SBE prophylaxis.Echo one month 2. 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 Chronic [...] specialty: Independent interpretation of tests: Basim Joel, WAREHOUSE PACKER - SUPPLY PERSON [1] Allergies Allergen Reactions Amlodipine Swelling Ciprofloxacin [...] Rfl: [3] Past Medical History: Diagnosis Date Wharton anemia 2010 [4] Past Surgical History: Procedure Laterality Date BLADDER REPAIR CARDIAC CATHETERIZATION N/A 10/23/2024 Performed by Memo Canas MD at [facility] OR CYSTECTOMY (HISTORICAL) LAPAROSCOPIC NEPHRECTOMY (HISTORICAL) Left TOTAL ABDOMINAL HYSTERECTOMY [5] Family History Problem Relation Name (more content not included)... [facility] 10-24-2024 Note Attestation signed by Memo [...] discharge. Referral has been made to the [facility] Outpatient Cardiac Rehabilitation Program. (more content not included)... [facility] 10-24-2024 Hospital Discharge instructions Dylon Gupta APRN - SUPPLY PERSON - 10/24/2024 8:35 AM EDT - Please call the Heart Valve Clinic with any questions: [phone] -You will have have the following follow [...] unless otherwise specified. documented in this encounter [facility] 10-24-2024 History of Present illness Narrative Images from the original note were not included. PHYSICAL THERAPY [facility] Name/MRN: Linda Peralta ([id number]) Date: 10/24/2024 PT orders received per Oniel activity/mobility score. Patient currently with Oniel activity/mobility score greater than 2. Per therapy services guidelines, will discharge PT orders. Please place regular PT eval/treat orders if deemed appropriate. Shea Perez PT documented in this encounter [facility] 10-24-2024 Nurse Note Pt had a restful night and even got up the the bathroom during the night with standby assist. Pt is up in a chair eating her Breakfast. [facility] 10-23-2024 Evaluation note Diagnosis Onset Date Resolution S/P TAVR (transcatheter aortic valve replacement) October 23, 2024 acute November 14, 2024 8:57am Essential (primary) hypertension chronic November 14, 2024 8:57am Hyperlipidemia chronic November 14, 2024 8:57am History of non-ST elevation myocardial infarction (NSTEMI) April, resolved November 142024 8:57am Chronic kidney disease, stage 3 inactive November 14, 2024 8:57am 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 (current) use of anticoagulants inactive November 14, 2024 8:57am MVP (mitral valve prolapse) inactive November 14, 2024 8:57am [place] [email or web address] Work Phone: [phone] Consult note* Juan Alberto Tena - 10/23/2024 12:25 PM EDTAssociated Order(s): IP CONSULT TO CARDIAC REHAB Received referral and reviewed chart. Unable to discuss Phase II Cardiopulmonary Rehab Referral with Linda Peralta at this time. Will follow to discuss program when appropriate. Patient will be contacted at home if discharged prior to discussion. [id number] NoteReceived referral and reviewed chart. Unable to discuss Phase II Cardiopulmonary Rehab Referral with Linda Peralta at this time. Will follow to discuss program when appropriate. Patient will be contacted at home if discharged prior to discussion. [facility]09-03-2025 Consult note* Juan Alberto Tena - 10/23/2024 12:25 PM EDT Associated Order(s): IP CONSULT TO CARDIAC REHAB Received referral and reviewed chart. Unable to discuss Phase II Cardiopulmonary Rehab Referral with Linda Peralta at this time. Will follow to discuss program when appropriate. Patient will be contacted at home if discharged prior to discussion. documented in this [facility]09-03-2025 NotePatient: Linda Peralta Procedure Summary Date: 10/23/24 Room / Location: [facility] Operating Room Anesthesia Start: 733 Anesthesia Stop: [...] discharged once all PACU criteria has been met.[facility] [id number] NotePatient: Linda Peralta Procedure Summary Date: 10/23/24 Room / Location: [facility] Operating Room Anesthesia Start: 733 Anesthesia Stop: [...] Allowed opportunity for questions and acknowledgement of understanding.[facility]09-03-2025 NoteArterial Line: Date/Time: 10/23/2024 8:35 AM [...] Staffing Performed: Other Other staff: Memo Canas, [facility]09-03-2025 NoteH&P reviewed. The patient was examined and there are no changes to the H&P.[facility]09-03-2025 NoteH&P reviewed. The patient was examined and there are no changes to the H&P.[facility]09-03-2025 Procedure note* Op Note - William Self DO - 10/23/2024 7:34 AM EDT CARDIOTHORACIC SURGERY--OPERATIVE NOTE Date: 10/23/24 Preoperative diagnosis: Severe symptomatic aortic stenosis Chronic diastolic congestive heart failure Frailty Postoperative diagnosis: Severe symptomatic aortic stenosis Chronic diastolic congestive heart failure Frailty Surgeon: Rocky Self DO Import Export Coordinator: Memo Canas MD Procedure: Transcatheter aortic valve [...] Disposition: Stable to ICU Rocky Self DO [facility] Cardiothoracic Surgery Masher Phone: [phone] Miscellaneous Notes* Op Note - William Self DO - 10/23/2024 7:34 AM EDT CARDIOTHORACIC SURGERY--OPERATIVE NOTE Date: 10/23/24 Preoperative diagnosis: Severe symptomatic aortic stenosis Chronic diastolic congestive heart failure Frailty Postoperative diagnosis: Severe symptomatic aortic stenosis Chronic diastolic congestive heart failure Frailty Surgeon: Rocky Self DO Import Export Coordinator: Memo Canas MD Procedure: Transcatheter aortic valve [...] Disposition: Stable to ICU Rocky Self DO [facility] Cardiothoracic Surgery * Pre-Procedure Note - Jacinda [...] Called for chest X-RAY documented in this [facility]09-03-2025 Evaluation note* Pre- Procedure Note - Jacinda Jackman RN - 10/23/2024 7:[address] Canas contacted about pre-procedure steroid not ordered. No new orders at this time for 0730 case. [id number] Evaluation note* Pre-Procedure Note - Jacinda Jackman RN - 10/23/2024 6:21 AM EDT X-ray to bedside [id number] Evaluation note* Pre-Procedure Note - Jacinda Jackman RN - 10/23/2024 6:03 AM EDT Called for chest X-RAY [place] [id number] NotePatient: Linda Peralta Procedure Information Date/Time: 10/23/24 0730 Procedures: TRANSCATHETER AORTIC VALVE REPLACEMENT, TRANSTHORACIC ECHOCARDIOGRAM TRANSCATHETER AORTIC VALVE REPLACEMENT, TRANSTHORACIC ECHOCARDIOGRAM (Chest) Location: [facility] Operating Room Surgeons: Memo Canas MD; William [...] Past Medical History: Past Medical History: 2011: Wharton anemia Past Surgical History: Past Surgical History: [...] cath under media Goldie Rojas APRN - SUPPLY PERSON GALA Screening Labs: No results found for: [...] Age of Onset Heart attack Mother Stroke [facility]09-02-2025 Telephone encounter Note* Telephone Encounter - Jewels Levy - 10/22/2024 2:51 PM EDT Letter refaxed to [phone] along w/ Kishore chart note. Confirmation 10/16/24 at 3:07p Confirmed 10/22/2024 at 3:59p [facility] [id number] Telephone encounter Note* Telephone Encounter - Desirae Martinez RN - 10/22/2024 10:39 AM EDT Spoke with Dr. Gregory's office to follow-up on IV hydrocortisone dosing. Did not receive fax from last week, confirmed number of [phone]. Requested patient will need to have telephone visit at [address] Gregory to review instructions. Requested to have OV note and letter re-faxed to the above number. Will provide valve clinic fax number so Dr. Gregory's office can fax recommendations back [place] [id number] Telephone encounter Note* Telephone Encounter - Jewels Levy - 10/22/2024 9:42 AM EDT Approved per fax. Scanned in under Media. Approval [id number] Sched on all 3 calendars and requested on Snapboard. [place] [id number] History and physical note* Dylon Gupta APRN - SUPPLY PERSON - 10/22/2024 8:32 AM EDT H+ P copied to chart from (office provider's name Dylon Gupta APRN) progress note dated 10/16/24 onbehalf of (procedural physician's name Dr. Canas). [facility] Telehealth Cardiology Note DATE of SERVICE: 10/16/24 TIME of SERVICE: 12:45 PM Chief Complaint: Chief Complaint Patient presents with Follow-up History of Present Illness: Linda Peralta is a 79 y.o. female known to Dr. Marte with a history for CAD, HPL, DVT, PE, Wharton's disease, CKD s/p left nephrectomy (donated) and [...] dyspnea with moderate activity. No CAD per [facility]. Weight 156 lbs. Last clinic visit [...] [Medical History] Past Medical History Diagnosis Date Wharton anemia 2010 Past Surgical History [Surgical History] [...] redirect to the Timeline version of the [facility] SmartLink. Limited Telehealth exam Constitutional: [x]Alert [x]Oriented [...] or 3b CKD (HCC) CKD followed by surgical territory manager Dr. Tarango in [place]. Most recent BMP showed SCr 1.61 with CrCl 31. 3. Acute deep vein thrombosis (DVT) of right lower extremity, unspecified vein (HCC) Questionable IVC filter. Currently on Eliquis. Per daughter, LE edema has improved. Post TAVR, willrefer patient to Dr. Gaffney-vascular. We reached out to [facility] for recommendations on bridging. Will stop Eliquis [...] 10 mg TID. Will reach out to extension service supervisor Dr. Gregory in [place] ([phone]). for recommendations on IV hydrocortisone prior to [...] patient and provider is done in the [facility] from the [facility] supported by [facility]. Cosigned by Memo Canas MD at 11/01/2024 9:49 PM EDT [facility] [id number] History and physical note* Dylon Gupta APRN - TELLY - 10/22/2024 8:32 AM EDT H+ P copied to chart from (office provider's name Dylon Gupta APRN) progress note dated 10/16/24 onbehalf of (procedural physician's name Dr. Canas). [facility] Telehealth Cardiology Note DATE of SERVICE: 10/16/24 TIME of SERVICE: 12:45 PM Chief Complaint: Chief Complaint Patient presents with Follow-up History of Present Illness: Linda Peralta is a 79 y.o. female known to Dr. Marte with a history for CAD, HPL, DVT, PE, Wharton's disease, CKD s/p left nephrectomy (donated) and [...] dyspnea with moderate activity. No CAD per [facility]. Weight 156 lbs. Last clinic visit [...] redirect to the Timeline version of the [facility] SmartLink. Limited Telehealth exam Constitutional: [x]Alert [x]Oriented [...] or 3b CKD (HCC) CKD followed by surgical territory manager Dr. Tarango in [place]. Most recent BMP showed SCr 1.61 with CrCl 31. 3. Acute deep vein thrombosis (DVT) of right lower extremity, unspecified vein (HCC) Questionable IVC filter. Currently on Eliquis. Per daughter, LE edema has improved. Post TAVR, willrefer patient to Dr. Gaffney-vascular. We reached out to [facility] for recommendations on bridging. Will stop Eliquis [...] a day for 2 days only. 5. Wharton's disease (HCC) Patient is currently taking hydrocortisone (Cortef) 10 mg TID. Will reach out to extension service supervisor Dr. Gregory in [place] ([phone]). for recommendations on IV hydrocortisone prior to [...] patient and provider is done in the [facility] from the [facility] supported by [facility]. Cosigned by Memo Canas MD at 11/01/2024 9:49 PM EDT documented in this [facility]09-02-2025 NoteH+ P copied to chart from (office provider's name Dylon GuptaLIDIA) progress note dated 10/16/24 on behalf of (procedural physician's name Dr. Canas). [facility] Telehealth Cardiology Note DATE of SERVICE: 10/16/24 TIME of SERVICE: 12:45 PM Chief Complaint: Chief Complaint Patient presents with Follow-up History of Present Illness: Linda Peralta is a 79 y.o. female known to Dr. Marte with a history for CAD, HPL, DVT, PE, Wharton's disease, CKD s/p left nephrectomy (donated) and [...] dyspnea with moderate activity. No CAD per [facility]. Weight 156 lbs. Last clinic visit [...] [Medical History] Past Medical History Diagnosis Date Wharton anemia 2010 Past Surgical History [Surgical History] [...] redirect to the Timeline version of the [facility] SmartLink. Limited Telehealth exam Constitutional: [x]Alert [x]Oriented [...] disease, unspecified whether st (more content not included)...[facility] [id number] NoteH+ P copied to chart from (office provider's name Dylon Gupta APRN) progress note dated 10/16/24 on behalf of (procedural physician's name Dr. Canas). [facility] Telehealth Cardiology Note DATE [...] dyspnea with moderate activity. No CAD per [facility]. Weight 156 lbs. Last clinic visit [...] redirect to the Timeline version of the [employer] SmartLink. Limited Telehealth exam Constitutional: [x]Alert [x]Oriented [...] disease, unspecified whether st (more content not included)...[facility]08-29-2025 NotePre TAVR phone call placed. Reviewed, procedure, instructions and meds. Pt verbalizes understanding. Pt knows to call [phone] with any concerns. Patient states she is going to pickling grader Lovenox today. WAREHOUSE PACKER notified to complete prep for proc Diagnosis: Aortic Stenosis Procedure being done: TAVR Date/time of procedure: 10/23/24 at 7:30 am Surgeon: Dr. Canas 2nd surgeon: Dr. Self Admission type: To be admitted Anesthesia: MAC Completed: BMP, CBC, CTA, H&P Date completed: 10/17/24 Additional orders Type and screen AM of [facility] 10-18-2024 Telephone encounter Note* Telephone Encounter - Shilpi Cook RN - 10/18/2024 4:56 PM EDT Pre TAVR phone call placed. Reviewed, procedure, instructions and meds. Pt verbalizes understanding. Pt knows to call [phone] with any concerns. Patient states she is going to pickling grader Lovenox today. WAREHOUSE PACKER notified to complete prep for proc Diagnosis: Aortic Stenosis Procedure being done: TAVR Date/time of procedure: 10/23/24 at 7:30 am Surgeon: Dr. Canas 2nd surgeon: Dr. Self Admission type: To be admitted Anesthesia: MAC Completed: BMP, CBC, CTA, H&P Date completed: 10/17/24 Additional orders Type and screen AM of proc [facility] [id number] Telephone encounter Note* Telephone Encounter - Jewels Levy - 10/18/2024 3:56 PM EDT Labs scanned under Media [facility] [id number] Telephone encounter Note* Telephone Encounter - Jewels Levy - 10/18/2024 3:34 PM EDT Requested lab from [place]. She is faxing them to [facility]. [place] [id number] Telephone encounter Note* Telephone Encounter - Jewels Levy - 10/17/2024 10:51 AM EDT Pending on Availity using Survela telephone visit from yesterday. Pending# [id number] [facility] HospitalJvtber20-21-1575 Telephone encounter Note* Telephone Encounter - Jewels Levy - 10/16/2024 3:07 PM EDT Letter and Meggans chart note faxed to [phone] and confirmed [facility] [id number] Telephone encounter Note* Telephone Encounter - Shilpi Cook RN - 10/16/2024 2:27 PM EDT PC to Dr. Gregory office. Requesting fax regarding medication recommendation sent to [phone]. Will discuss with Jo Levy. [place] [id number] Telephone encounter Note* Telephone Encounter - Shilpi Cook RN - 10/16/2024 2:13 PM EDT PC to dr Gregory office. Placed on hold and disconnected. Will try again later. [place] [id number] History of Present illness Narrative* LIDIA Mon CNP - 10/16/2024 11:00 AM EDT [facility] Telehealth Cardiology Note DATE of SERVICE: 10/16/24 TIME of SERVICE: 12:45 PM Chief Complaint: Chief Complaint Patient presents with Follow-up History of Present Illness: Linda Peralta is a 79 y.o. female known to Dr. Marte with a history for CAD, HPL, DVT, PE, Wharton's disease, CKD s/p left nephrectomy (donated) and [...] dyspnea with moderate activity. No CAD per [facility]. Weight 156 lbs. Last clinic visit [...] redirect to the Timeline version of the [facility] SmartLink. Limited Telehealth exam Constitutional: [x]Alert [x]Oriented [...] or 3b CKD (HCC) CKD followed by surgical territory manager Dr. Tarango in [place]. Most recent BMP showed SCr 1.61 with CrCl 31. 3. Acute deep vein thrombosis (DVT) of right lower extremity, unspecified vein (HCC) Questionable IVC filter. Currently on Eliquis. Per daughter, LE edema has improved. Post TAVR, willrefer patient to Dr. Gaffney-vascular. We reached out to [facility] for recommendations on bridging. Will stop Eliquis [...] a day for 2 days only. 5. Wharton's disease (HCC) Patient is currently taking hydrocortisone (Cortef) 10 mg TID. Will reach out to extension service supervisor Dr. Gregory in [place] ([phone]). for recommendations on IV hydrocortisone prior to [...] patient and provider is done in the [facility] from the [facility] supported by [facility]. [1] Past Medical History: Diagnosis Date [...] 09/03/2024), Disp: , Rfl: documented in this [facility]08-27-2025 Telephone encounter Note* Telephone Encounter - LIDIA [...] evening of 10/22 or morning of 10/23 [place] [id number] Telephone encounter Note* Telephone Encounter - Jewels Levy - 10/15/2024 11:14 AM EDT Lab order faxed to [facility] [phone]/confirmed [place] [id number] Telephone encounter Note* Telephone Encounter - Jewels Levy - 10/15/2024 9:58 AM EDT I need PB to please finish his chart note so I can submit this auth [place] [id number] Telephone encounter Note* Telephone Encounter - Desirae Martinez RN - 10/14/2024 3:09 PM EDT Spoke with patient, she will have labs drawn tomorrow at [place]. Will have office secretary fax lab orders over [place] [id number] NoteReviewed lab work with Butch Gupta APRN, will have patient hold lisinopril until after procedure. Okay to proceed with TAVR, pended case request Spoke with patient verbalized understanding of medication change. Agreed to below procedure date/time. Dx: Severe Aortic stenosis Procedure: TAVR Date/Time: 10/23/24 at 7:30 am Surgeon: Dr. Canas/ Dr. self Location: [facility] Admission: TBA Anesthesia: DEVANG Levy notified to schedule procedure and obtain insurance auth. Patient scheduled for telephone visit for H&P update and to review bridging instructions 10/16. Reviewed TAVR teach instructions while patient was on the phone. TAVR procedure, instructions reviewed with pt Patient scheduled for TAVR on 10/23/24 at 7:30 am Will report to [facility] Same Day Surgery by 5:30 am Can park in the [facility] Parking Deck or use Transit Planning Director parking at the [facility] entrance Plan on overnight stay in the hospital Will not be able to drive for 1 week after procedure Will receive moderate sedation through the IV, will be relaxed but awake during the procedure Nothing to eat or drink after midnight Hold all morning medications Will call with any questions/concerns Patient/family verbalized understanding.[facility]08-25-2025 Telephone encounter Note* Telephone Encounter - [...] am Surgeon: Dr. Canas/ Dr. self Location: [facility] Admission: TBA Anesthesia: DEVANG Levy notified to schedule procedure and obtain insurance auth. Patient scheduled for telephone visit for H&P update and to review bridging instructions 10/16. Reviewed TAVR teach instructions while patient was on the phone. TAVR procedure, instructions reviewed with pt Patient scheduled for TAVR on 10/23/24 at 7:30 am Will report to [facility] Same Day Surgery by 5:30 am Can park in the [facility] Parking Deck or use Transit Planning Director parking at the [facility] entrance Plan on overnight stay in the hospital Will not be able to drive for 1 week after procedure Will receive moderate sedation through the IV, will be relaxed but awake during the procedure Nothing to eat or drink after midnight Hold all morning medications Will call with any questions/concerns Patient/family verbalized understanding. [facility] [id number] Telephone encounter Note* Telephone Encounter - LIDIA [...] morning. (Will review this with Dr. Canas) [facility] [id number] Telephone encounter Note* Telephone Encounter - Jewels Levy - 10/10/2024 4:12 PM EDT Results scanned under Media [facility] [id number] Miscellaneous Notes* Telephone Encounter - Jewels Levy [...] - 10/07/2024 4:10 PM EDT I called [place] lab and l/m to send me results * Telephone Encounter - Jewels Levy - 10/02/2024 4:38 PM EDT Order faxed to and confirmed * Telephone Encounter - LIDIA Patel CNP - 10/02/2024 4:26 PM EDT Spoke with patient regarding US kidney. Repeat BMP . Please send lab req to [facility]. Will discuss moving forwvsr with TAVR with Dr. Canas documented in this encounterSOur Lady of Mercy [id number] Telephone encounter Note* Telephone Encounter - Jewels Levy - 10/10/2024 1:38 PM EDT I called and spoke to Salima and she is faxing result [facility] HospitalZrluvw04-98-8537 Telephone encounter Note* Telephone Encounter - Desirae Martinez RN - 10/10/2024 1:15 PM EDT Reviewed with Butch Joel APRN as patient completed renal US, plan if BMP shows stable function to proceed with TAVR. BMP results from 10/03/24 at [place] show creatinine 1.82 with GRF 28. Will have WAREHOUSE PACKER review and place TAVR case request if appropriate [place] [id number] Telephone encounter Note* Telephone Encounter - Jewels Levy - 10/08/2024 2:11 PM EDT I need PB chart note finished from 09/03/24 to do this auth [place] [id number] Miscellaneous Notes* Telephone Encounter - Jewels Levy - 10/08/2024 2:11 PM EDT I need PB chart note finished from 09/03/24 to do this auth * Telephone Encounter - Jewels Levy - 10/07/2024 4:10 PM EDT I called [place] lab and l/m to send me results * Telephone Encounter - Jewels Levy - 10/02/2024 4:38 PM EDT Order faxed to and confirmed * Telephone Encounter - Basim Joel APRN - SUPPLY PERSON - 10/02/2024 4:26 PM EDT Spoke with patient regarding US kidney. Repeat [facility] . Please send lab req to [facility]. Will discuss moving forwasr with TAVR with Dr. Canas documented in this encounterSOur Lady of Mercy HospitalPbrxwb83-06-4097 Telephone encounter Note* Telephone Encounter - Jewels Levy - 10/07/2024 4:10 PM EDT I called [place] lab and l/m to send me results [facility] [id number] Miscellaneous Notes* Telephone Encounter - Jewels Levy - 10/07/2024 4:10 PM EDT I called [place] lab and l/m to send me results * Telephone Encounter - Jewels Levy - 10/02/2024 4:38 PM EDT Order faxed to and confirmed * Telephone Encounter - LIDIA Patel CNP - 10/02/2024 4:26 PM EDT Spoke with patient regarding US kidney. Repeat BMP . Please send lab req to [facility]. Will discuss moving forwasr with TAVR with Dr. Canas documented in [place] [id number] Telephone encounter Note* Telephone Encounter - Jewels Levy - 10/02/2024 4:38 PM EDT Order faxed to and confirmed [facility] HospitalGupgsw27-94-2829 Miscellaneous Notes* Telephone Encounter - Jewels Levy - 10/02/2024 4:38 PM EDT Order faxed to * Telephone Encounter - LIDIA Patel CNP - 10/02/2024 4:26 PM EDT Spoke with patient regarding US kidney. Repeat [facility] . Please send lab req to [facility]. Will discuss moving forwasr with TAVR with Dr. Canas documented in this [place] [id number] Miscellaneous Notes* Telephone Encounter - Jewels Levy - 10/02/2024 4:38 PM EDT Order faxed to and confirmed * Telephone Encounter - LIDIA Patel CNP - 10/02/2024 4:26 PM EDT Spoke with patient regarding US kidney. Repeat [facility] . Please send lab req to [facility]. Will discuss moving forwasr with TAVR with Dr. Canas documented in this [place] [id number] Telephone encounter Note* Telephone Encounter - LIDIA Patel CNP - 10/02/2024 4:26 PM EDT Spoke with patient regarding US kidney. Repeat BMP . Please send lab req to [facility]. Will discuss moving forwvsr with TAVR with Dr. Canas [place] [id number] Telephone encounter Note* Telephone Encounter - LIDIA Patel CNP - 09/26/2024 5:28 PM EDT BMP review. Bump in BUN/creat after 3 days of 40 mg po Lasix. Spoke with daughter. Weight down to 144 #, swelling, improved, dyspnea improved. Will use Lasix 20 mg po for weight gain greater than 3 lbs overnight or 5lbs in a week. Daughter will relay recommendations. [place] [id number] Miscellaneous Notes* Telephone Encounter - LIDIA Patel [...] Daughter will relay recommendations. documented in this [place] [address]-07-2025 NoteHNO ID: [id number] Author: SHAKIRA BENOIT RDMS Service: ? Author [...] PATIENT PRESENTS WITH AN IMPLANTABLE OR ATTACHED TOY DESIGNER: No RADIOLOGY DEPARTMENT: Ultrasound PERIPHERAL IV DATA: Not applicable SIGNED BY: Shakira Benoit RDMS September 26, 2024 2:20 [facility]08-04-2025 Telephone encounter Note* Telephone Encounter - Sindi Angeles - 09/23/2024 8:25 AM EDT Per appointment desk, patient scheduled with ID on 10-23-24 at 9:00a.m. with Dr. Noble Chowdary. Cecy Angeles September 23, 2024 8:26 AM [facility]08-04-2025 Miscellaneous Notes* Telephone Encounter - Sindi [...] 19, 2024 12:06 PM documented in this encounterDetwiler Memorial Hospital07-31-2025 History of Present illness Narrative* Basim Joel, WAREHOUSE PACKER - SUPPLY PERSON - 09/19/2024 3:00 PM EDT Images from the original note were not included. [facility] CARDIOLOGY - [address] [address] Dept: [phone] Dept Visit type: Established : 1945 Reason [...] diuretic cautiously, follow renal function, BP 4. Wharton's disease (HCC) As above, continue steroids 5. [...] dyspnea with moderate activity. No CAD per [facility]. Weight 156 lbs. Last clinic visit [...] visit. [3] Past Medical History: Diagnosis Date Wharton anemia 2010 [4] Past Surgical History: Procedure Laterality Date BLADDER REPAIR HX CYSTECTOMY (HISTORICAL) LAPAROSCOPIC NEPHRECTOMY (HISTORICAL) Left TOTAL ABDOMINAL HYSTERECTOMY [5] Family History Problem Relation Name Age of Onset Heart attack Mother Stroke Father documented in this [facility]07-31-2025 History of Present illness Narrative* LIDIA Patel CNP - 09/19/2024 3:00 PM EDT Images from the original note were not included. [facility] CARDIOLOGY [address] [address] Dept: [phone] Dept Visit type: Established : 1945 Reason [...] diuretic cautiously, follow renal function, BP 4. Wharton's disease (HCC) As above, continue steroids 5. [...] dyspnea with moderate activity. No CAD per [facility]. Weight 156 lbs. Last clinic visit [...] specialty: Independent interpretation of tests: Basim Joel, WAREHOUSE PACKER - SUPPLY PERSON [1] Allergies Allergen Reactions Amlodipine Swelling Ciprofloxacin [...] visit. [3] Past Medical History: Diagnosis Date Wharton anemia 2010 [4] Past Surgical History: Procedure Laterality Date BLADDER REPAIR HX CYSTECTOMY (HISTORICAL) LAPAROSCOPIC NEPHRECTOMY (HISTORICAL) Left TOTAL ABDOMINAL HYSTERECTOMY [5] Family History Problem Relation Name Age of Onset Heart attack Mother Stroke Father documented in this [facility]07-31-2025 Miscellaneous Notes* Addendum Note - LIDIA Patel CNP - 09/19/2024 3:00 PM EDTAddended by: BASIM JOEL on: 09/23/2024 01:57 PM Modules accepted: Orders documented in this [facility]07-31-2025 Note* Addendum Note - LIDIA Patel CNP - 09/19/2024 3:00 PM EDTAddended by: BASIM JOEL on: 09/23/2024 01:57 PM Modules accepted: Orders [facility] [id number] Note* Addendum Note - LIDIA Patel CNP - 09/19/2024 3:00 PM EDTAddended by: BASIM JOEL. on: 09/23/2024 01:57 PM Modules accepted: Orders [facility] HospitalEifpkw87-41-1777 Telephone encounter Note* Telephone Encounter - Sindi [...] Cecy Angeles September 19, 2024 12:06 PM [facility]07-31-2025 Instructions* Patient Instructions* Arelis Smith APRN.CNP [...] Plums Champagne Prunes Cheese Raisins Chicken livers [place] bread Chilies/Spicy foods Saccharin Chocolate Sour cream [place] fruits Soy sauce Coffee Strawberries corned beef Tea Cranberries Tomatoes Krystyna beans Vinegar Grapes Vitamins-buffered with aspartame Caffeine Guava Yogurt Artificial Sweeteners Lemon juice Lentils Artificial Colorants Alternative foods This list offers food alternatives to the foods on the list above. Alcohol or pebbles (only as flavoring) Almonds Apple (small) Blueberries Coffee (acid-free Kava) or highly roasted Extracts, marta, rum, etc [place] Islander sauternes Imitation sour cream Onions (cooked?) [place] juice -- reduced acid Peanuts Pears Processed [...] for Female Pelvic Medicine and Reconstructive Surgery [facility] [place] Recurrent UTI Prevention Program: Takes 6 months [...] laxatives such as miralax. documented in this encounterDetwiler [facility] Hospital07-31-2025 History of Present illness Narrative* Arelis Smith APRN.TELLY - 09/19/2024 11:00 AM EDT Images from the original note were not included. [facility] [place] [facility] - [place] UROL [place] EXCHANGE NEW PATIENT UROLOGY VISIT 09/19/2024 10:34 AM PATIENT NAME: Linda Peralta DATE OF : 1945 TODAY'S DATE: 09/19/2024 Referring Provider: Rocio Elizalde [address] [facility] [address] Referring Note Reviewed: Yes Chief Complaint: recurrent [...] 08/26/2009 ASHD (arteriosclerotic heart disease) 04/25/2009 Asthma ([facility]) Benign neoplasm of colon 04/26/2005 Tubular adenoma Chronic diarrhea 03/15/2010 Chronic sphenoidal sinusitis 09/15/2003 Closed displaced fracture of fifth metatarsal bone of right foot 03/22/2023 Closed fracture of bone of right foot 11/08/2022 Collagenous colitis 03/30/2010 Contact dermatitis and other eczema, due to unspecified cause 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 Cardiac cath normal. 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Wharton's disease Cystocele, midline 07/23/2007 Diverticulosis of colon [...] W/COLLJ SPEC WHEN PFRMD 03/26/2010 Inpatient at [facility] ESOPHAGOGASTRODUODENOSCOPY TRANSORAL DIAGNOSTIC 02/2002 EGD ESOPHAGOGASTRODUODENOSCOPY [...] , Taking? , Authorizing Provider Rocio Elizalde, WAREHOUSE PACKER.SUPPLY PERSON Medication nitroglycerin sublingual (NITROQUICK) 0.4 mg SL [...] Date Value 06/08/2023 Negative 04/16/2015 Neg Specific Wall, Ur (no units) Date Value 06/08/2023 1.020 [...] LUCACREA, LUCREACL, LWK, LUSUL in the last [id number] hours. Physical Exam Vitals and nursing note [...] to pharmacy. Patient givenprinted information. Arelis Smith APRN.SUPPLY PERSON Consultation requested by Rocio Elizalde [address] [facility] [address] for an opinion regarding Linda Peralta patient and my final recommendations will be communicated back to the requesting physician by way of shared Medical record or letter via US mail. Recording using ECOtality software for draft documentation of the visit was discussed with the patient/authorized sales and merchandising representative; all questions welcomed and answered. Patient/authorized sales and merchandising representative agreed to proceed documented in this encounterDetwiler Memorial Hospital07-31-2025 NoteHNO ID: [id number] Author: ARELIS SMITH APRN.TELLY Service: ? Author Type: Nurse Practitioner Type: Progress Notes Filed: 09/20/2024 13:00 Note Text: [facility] [place] [facility] [place] UROL [place] EXCHANGE NEW PATIENT UROLOGY VISIT 09/19/2024 10:34 AM PATIENT NAME: Linda Peralta DATE OF : 1945 TODAY'S DATE: 09/19/2024 Referring Provider: Rocio Elizalde [address] [facility] [address] Referring Note Reviewed: Yes Chief Complaint: recurrent [...] DVT of lower extremity (deep venous thrombosis) ([facility]) 03/27/2009 Left leg Esophageal reflux Gallstones 03/06/2016 [...] W/COLLJ SPEC WHEN PFRMD 03/26/2010 Inpatient at [facility] ESOPHAGOGASTRODUODENOSCOPY TRANSORAL DIAGNOSTIC 02/2002 EGD ESOPHAGOGASTRODUODENOSCOPY TRANSORAL DIAGNOSTIC 05/01/2009 EGD ESOPHAGOGASTRODUODENOSCOPY TRANSORAL DIAGNOSTIC 11/18/2009 EGD, EXC CYST/ABERRANT BREAST TISSUE OPEN 1/> LESION 1960 benign IVC FILTER PERCUTANEOUS 03/31/2009 LAPS SURG CHOLECYSTECTOMY W/CHOLANGIOGRAPHY 03/30/2016 LEFT HEART CATH,PERCUTANEOUS 04/27/2009 Cardiac cath, L (more content not included)...[facility] 09-19-2024 Telephone encounter Note* Telephone Encounter - Ama Diaz RN - 09/19/2024 10:42 AM EDT Pt has Urology appointment set up. Ama Diaz RN [facility]07-31-2025 Miscellaneous Notes* Telephone Encounter - Ama [...] Pt. Ama Diaz RN documented in this encounterDetwiler [facility] Hospital07-24-2025 Telephone encounter Note * Telephone Encounter [...] call and advise Pt. Ama Diaz RN [facility]07-15-2025 History of Present illness Narrative* Baldo De La Cruz MD - 09/03/2024 4:00 PM EDT Images from the original note were not included. [facility] Group: Cardiothoracic Surgery Multidisciplinary Heart Valve Clinic Date: 09/03/24 Patient:Linda Peralta 1945 79 y.o. female [id number] Subjective: HPI: Linda Peralta [address] Marte is being evaluated for aortic valve stenosis. Echocardiogram completed on 07/03/24 showed moderate to severe aortic valve stenosis with mean mm Hg. Per note, patient with past medical history significant for STEMI 2009, HLD, DVT, PE, Moris's Disease, CKD, s/p left nephrectomy and right partial nephrectomy, mitral valve prolapse, and aortic valve stenosis. Pt underwent TOMI on 07/03/24 which demonstrated LVEF 45%, 1-2+ MT, stage 1 diastolic dysfunction, moderately severe aortic [...] were no vitals taken for this visit. @[id number]@ Physical Exam Constitutional: Appearance: Normal appearance. HENT: [...] echocardiography,and other diagnostic images. documented in this [facility]07-15-2025 History of Present illness Narrative* Memo Canas MD - 09/03/2024 3:30 PM EDT Images from the original note were not included. [facility] CARDIOLOGY - [address] [address] Dept: [phone] Dept Visit type: New : 1945 Reason [...] proceeding with TAVR. We will contact her extension service supervisor for recommendations about steroid dosingaround the time [...] markedly swollen). Guevara armas. 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 Review [...] mg, 650 mg, Oral, q4h PRN, Dylon Gupat APRN - TELLY atorvastatin (Lipitor) tablet 10 [...] mg, Oral, Daily, Dylon Gupta APRN - SUPPLY PERSON methenamine hippurate (Hiprex) tablet 1 g, 1 [...] 10/23/2024 Performed by Memo Canas MD at [facility] OR CYSTECTOMY (HISTORICAL) LAPAROSCOPIC NEPHRECTOMY (HISTORICAL) Left TOTAL ABDOMINAL HYSTERECTOMY [5] Family History Problem Relation Name Age of Onset Heart attack Mother Stroke Father documented in this [facility]07-10-2025 NoteHNO ID: [id number] Author: AMOS FLOYD MD Service: ? Author Type: Physician Type: Progress Notes Filed: 08/29/2024 11:26 Note Text: This note was created using Clickpassriter. Subjective Linda Peralta is a 79 year old female here with daughter. She was doing better. Blood pressure was elevating now. Her extension service supervisor, Dr. Gregory, did not need to call in a medication to raise her blood pressure. Edema was improving. Dysuria resolved. She was scheduled to see cardiac surgeons in [facility] next week for possible TAVR. Review [...] I35.0 - To see cardiac surgery in [facility]. 6. Thyroid nodule greater than or equal to 1 cm in diameter incidentally noted on imaging study, right side. - ICD9: 241.0, ICD10: E04.1 - We reviewed this. Dr. Gregory palpated her thyroid and was aware. He recommended monitoring only. Am[facility]07-10-2025 History of Present illness Narrative* Amos Floyd MD - 08/29/2024 10:54 AM EDT This note was created using NoteWriter. Subjective Linda Peralta is a 79 year old female here with daughter. She was doing better. Blood pressure was elevating now. Her extension service supervisor, Dr. Gregory, did not need to call in a medication to raise her blood pressure. Edema was improving. Dysuria resolved. She was scheduled to see cardiac surgeons in [facility] next week for possible TAVR. Review [...] I35.0 - To see cardiac surgery in [facility]. 6. Thyroid nodule greater than or equal to 1 cm in diameter incidentally noted on imaging study, right side. - ICD9: 241.0, ICD10: E04.1 - We reviewed this. Dr. Gregory palpated her thyroid and was aware. He recommended monitoring only. Amos Floyd MD documented in this encounterDetwiler [facility]07-03-2025 NoteHNO ID: [id number] Author: ANNEMARIE READ RN Service: ? Author [...] Annemarie Read RN August 22, 2024 12:43 [facility]07-03-2025 History of Present illness Narrative* Annemarie Read, [...] 22, 2024 12:43 PM documented in this encounterDetwiler [facility]07-03-2025 NotePatient Outreach ([facility]) LINDA PERALTA ([id number]) 1945 F Date Time Provider Department 08/22/24 [...] disease) [I25.10] 04/25/2009 DVT (deep venous thrombosis) ([facility]) [I82.409] 03/23/2012 01/23/2024 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 [M85.80] 11/13/2013 06/30/2023 Chronic nonallergic rhinitis [J31.0] 03/20/2014 Pure hypercholesterolemia [E78.00] 02/17/2015 Gallstones [K80.20] 03/06/2016 08/24/2016 Pain of upper abdomen [R10.10] 03/10/2016 02/27/2017 Personal history of colonic polyps [Z86.0100] 03/10/2016 02/27/2017 Atopic neur (more content not included)...[facility]06-30-2025 Telephone encounter Note* Telephone Encounter - Ama Diaz RN - 08/19/2024 6:30 PM EDT Pt's daughter called and is notified of providers message and instructions. She voices understanding. Ama Diaz RN [facility]06-30-2025 Miscellaneous Notes* Telephone Encounter - Ama [...] order another antibiotic? Please advise daughter Souleymane [phone]. documented in this encounterDetwiler [facility] Hospital06-30-2025 Telephone encounter Note * Telephone Encounter [...] after antibiotic is done. Amos Floyd MD [facility]06-30-2025 Telephone encounter Note* Telephone Encounter - [...] order another antibiotic? Please advise daughter Souleymane [phone]. [facility]06-26-2025 NoteHNO ID: [id number] Author: ANNEMARIE READ RN Service: ? Author Type: Registered Nurse Type: Progress Notes Filed: 08/15/2024 10:28 Note Text: Transition Care Management (TCM) Initial Outreach PCP Update / Actionable Items HRTIC TCM Home Visit Referral Source of Stratification: [facility] Hospital Admission Status: Discharged Readmission Risk Score: N/A Patient's zip code: [address] Is zip code within program service area: No Patient meets program referral criteria: No Patient does not qualify for High Risk TCM Home Visit program due to: Readmission Risk Score does not meet criteria Disposition: Patient does not qualify for HRTIC, will provide TCM outreach follow-up for 30-days Patient Source: Fhe-if-Vinrzvn (OON) Discharge Outreach Summary: Called and spoke [...] concerns at this time. Patient discharged from [facility] Discharge date: 08/09/24 Admitted for: Acute cystitis AND DVT Readmission Risk: N/A Value-Based Contract: Pattie STORM Contact: Contact made with patient: Yes Hi, my name is Annemarie Read RN and I am calling from the [facility] on behalf of your Primary Care [...] I will send your request to a care team coordinator scheduler who will contact and assist you with [...] Annemarie Read RN August 15, 2024 10:26 [facility]06-26-2025 History of Present illness Narrative* Annemarie Read RN - 08/15/2024 10:14 AM EDT Transition Care Management (TCM) Initial Outreach PCP Update / Actionable Items HRTIC TCM Home Visit Referral Source of Stratification: [facility] Hospital Admission Status: Discharged Readmission Risk Score: N/A Patient's zip code: [address] Is zip code within program service area: No Patient meets program referral criteria: No Patient does not qualify for High Risk TCM Home Visit program due to: Readmission Risk Score does not meet criteria Disposition: Patient does not qualify for HRTIC, will provide TCM outreach follow-up for 30-days Patient Source: Hix-bs-Jbfndhq (OON) Discharge Outreach Summary: Called and spoke [...] concerns at this time. Patient discharged from [facility] Discharge date: 08/09/24 Admitted for: Acute cystitis & DVT Readmission Risk: N/A Value-Based Contract: Pattie STORM Contact: Contact made with patient: Yes Hi, my name is Annemarie Read RN and I am calling from the [facility] on behalf of your Primary Care [...] I will send your request to a care team coordinator scheduler who will contact and assist you with [...] 15, 2024 10:26 AM [facility] NotePatient Outreach (AMBCMG) LINDA PERALTA ([id number]) 1945 F Date Time Provider Department 08/15/24 ANNEMARIE READ AMBDARSHANAG During your visit today, we recorded the following information about you: Annemarie Read RN 08/15/2024 10:28 AM Signed Transition Care Management (TCM) Initial Outreach PCP Update / Actionable Items HRTIC TCM Home Visit Referral Source of Stratification: [facility] Hospital Admission Status: Discharged Readmission Risk Score: N/A Patient's zip code: [address] Is zip code within program service area: No Patient meets program referral criteria: No Patient does not qualify for High Risk TCM Home Visit program due to: Readmission Risk Score does not meet criteria Disposition: Patient does not qualify for HRTIC, will provide TCM outreach follow-up for 30-days Patient Source: Exp-va-Qrzbtef (OON) Discharge Outreach Summary: Called and spoke [...] concerns at this time. Patient discharged from [facility] Discharge date: 08/09/24 Admitted for: Acute cystitis AND DVT Readmission Risk: N/A Value-Based Contract: Pattie STORM Contact: Contact made with patient: Yes Hi, my name is Annemarie Read RN and I am calling from the [facility] on behalf of your Primary Care [...] I will send your request to a care team coordinator scheduler who will contact and assist you with [...] 5 days. - ipra (more content not included)...[facility]06-25-2025 Instructions* Patient Instructions* Amos Floyd MD - 08/14/2024 12:13 PM EDT HYDRATE WELL. MESSAGE BLOOD PRESSURE READINGS IN 1-2 DAYS. DO NOT TAKE LISINOPRIL OR AMLODIPINE (HIGH BLOOD PRESSURE MEDICATIONS) TRAMADOL NEEDED FOR PAIN NOT BETTER WITH TYLENOL. documented in [facility]25 NoteHNO ID: [id number] Author: AMOS FLOYD MD Service: ? Author Type: Physician Type: Progress Notes Filed: 08/15/2024 07:19 Note Text: This note was created using Clickpassriter. Subjective Patient presents with: Hospital F/U Linda Peralta is a 79 year old female here with her daughter. She had a heart catheterization 08/05/24 showing minimal CAD and severe . She was being referred for TAVR to a specialist in [facility]. She developed weakness 08/07/24 and was found to be bradycardic and hypotensive. She was admitted with concerns for UTI, urosepsis, non STEMI, and Wharton's. She was treated with IV fluids, antibiotic for Klebsiella aerogenes UTI, and IV hydrocortisone. She was noted to have edema and found to have acute DVT, in the setting of recent holding of rn long term care warfarin for the heart cath. She was [...] recommended due to hypot (more content not included)...[facility]06-25-2025 History of Present illness Narrative* Amos Floyd MD - 08/14/2024 11:39 AM EDT This note was created using MarketMuseter. Subjective Patient presents with: [facility] F/U Linda Peralta is a 79 year old female here with her daughter. She had a heart catheterization 08/05/24 showing minimal CAD and severe . She was being referred for TAVR to a specialist in [facility]. She developed weakness 08/07/24 and was found to be bradycardic and hypotensive. She was admitted with concerns for UTI, urosepsis, non STEMI, and Wharton's. She was treated with IV fluids, antibiotic for Klebsiella aerogenes UTI, and IV hydrocortisone. She was noted to have edema and found to have acute DVT, in the setting of recent holding of rn long term care warfarin for the heart cath. She was [...] I35.0 [facility] 5. Acute cystitis without hematuria - ICD9: 595.0, ICD10: N30.00 Recheck. - UA DIP, URINE (POC) - BACTERIAL CULTURE, URINE Amos Floyd MD documented in this encounterDet[facility]06[facility] Discharge summary [facility] Medical Records Department [address] [place] [address] Discharge Summary 08/09/24 1437 MR#: [id number] Acct: [id number] Name: LINDA PERALTA Rep #:[id number] : 1945 79 From: Jairo Mitchell DO PCP: Dr. Amos Floyd MD Status:A DM IN [facility] Prov[facility] Date of Admission: 08/07/24 Primary [...] mg/mL subcutaneous syringe (Prolia) 60 mg subcut [id number] #1 mL 11/24/22 nitroglycerin 0.4 mg sublingual [...] 81.0 H, Lymph % (Auto) 7.4 L, Sully % (Auto) 9.5, Eos % (Auto) 0.2, [...] to being on chronic steroids with your Wharton'sdisease and you will be on a prednisone [...] Prolia 60 mg/mL syringe 60 mg subcut [id number] Qty: 1 1RF nitroglycerin 0.4 mg tablet, [...] Self Care Charges/Coding Visit Charges Inpatient E&M: 09714 Disch Hosp >30min 08/09/24 5743 Cosigner Signature (if applicable): CC: Dr. Jairo Mitchell DO; Dr. Amos Floyd MD~ Signed [facility]06-20-2025 [facility] Medical Records Department [address] [place] [address] Discharge Summary 08/09/24 1437 MR#: [id number] Acct: [id number] Name: LINDA PERALTA Rep #: [id number] : 1945 79 From: Jairo Mitchell DO PCP: Dr. Amos Floyd MD Status:ADM IN Location: [place] [address] Providers Date of Admission: 08/07/24 Primary Care [...] mg/mL subcutaneous syringe (Prolia) 60 mg subcut [id number] #1 mL 11/24/22 nitroglycerin 0.4 mg sublingual [...] adrenal insufficiency due to patient is known Wharton's disease on chronic hydrocortisone having urinary tract [...] 81.0 H, Lymph % (Auto) 7.4 L, Sully % (Auto) 9.5, Eos % (Auto) 0.2, [...] Calcium 8.5 Microbiology: Microbi (more content not included)...[facility]06-19-2025 Progress note Author Ted Toro [facility] Note Date/Time August 08, 2024 10:[address] [facility] Medical Records Department [address] [place] [address] Progress Note - Hospitalist 08/08/24 1028 MR#: [id number] Acct: [id number] Name: LINDA PERALTA Rep #:[id number] : 1945 79 From: Ted charles MD PCP: Dr. Amos Floyd MD Status:A DM IN Location: [place] [address] Subjective Subjective doing well, feels better than [...] 71.7 H, Lymph % (Auto) 15.0 L, Sully % (Auto) 9.7, Eos % (Auto) 1.1, [...] Urine ClarityClear, Urine pH 6.0, Ur Specific Wall 1.015, Urine Protein 30 H, Urine Glucose [...] consult for management. Colonic diverticulosis. Reading Location: [place] [address] Physical Exam Narrative General: Alert, Oriented x3, [...] Therapeutic Lovenox Charges/Coding Visit Charges Inpatient E&M: 22884 Subs Hosp L2 08/08/24 1046 <Electronically signed by Ted Toro MD> Cosigner Signature (if applicable): CC: ~ Signed [facility] Work Phone: 1(906) 671-160206-19-2025 Progress note [facility] Medical Records Department [address] [place] [address] Progress Note - Hospitalist 08/08/24 1028 MR#: [id number] Acct: [id number] Name: LINDA PERALTA Rep #:[id number] : 1945 79 From: Ted charles MD PCP: Dr. Amos Floyd MD Status:A DM IN Location: [place] [address] Subjective Subjective doing well, feels better than [...] 71.7 H, Lymph % (Auto) 15.0 L, Sully % (Auto) 9.7, Eos % (Auto) 1.1, [...] Urine ClarityClear, Urine pH 6.0, Ur Specific Wall 1.015, Urine Protein 30 H, Urine Glucose [...] consult for management. Colonic diverticulosis. 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 She did not have sepsis on admission based on insurance criteria ? Continue with Rocephin ? 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 [...] Therapeutic Lovenox Charges/Coding Visit Charges Inpatient E&M: 04339 Subs Hosp L2 08/08/24 1046 Cosigner Signature (if applicable): CC: ~ Signed [facility]06-19-2025 History and physical note Author Nixon Brizuela [facility] Note Date/Time August 08, 2024 6:55 am [facility] Medical Records Department [address] [facility] [place] [address] H&P Exam - Hospitalist 08/07/241930 MR#: [id number] Acct: [id number] Name: LINDA PERALTA Rep #:[id number] : 1945 79 From: Nixon Sanchez DO [...] LVEF ~60% and mild luminal irregularities with uczhvojp-sa-ezifaw plus grade II mitral valve insufficiency who presents to [facility] ER complaining of hypotension and bradycardia. [...] to extend beyond 2 midnights. [facility] Medical History MVP (mitral valve prolapse) Aortic stenosis Hypokalemia Elevated serum creatinine Acute prerenal azotemia History of kidney cancer Chronic kidney disease Hypercalcemia Frequent falls Closed head injury (03/20/20) Hypoglycemia (03/20/20) Acute electrocardiogram changes Atopic dermatitis Osteopenia determined by x-ray History of pulmonary embolism [facility] (current) use of anticoagulants Orthostatic hypotension Chronic [...] denosumab 60 mg/mL subcutaneous 60 mg subcut [id number] #1 mL 11/24/22 Unknown Rx syringe (Prolia) [...] Other History of DVT (deep vein thrombosis) [facility] (current) use of anticoagulants Surgical History History [...] safe at home: Yes additional social history: [place]- Retired patient is retired ROS ROS Narrative [...] 71.7 H, Lymph % (Auto) 15.0 L, Sully % (Auto) 9.7, Eos % (Auto) 1.1, [...] Urine ClarityClear, Urine pH 6.0, Ur Specific Wall 1.015, Urine Protein 30 H, Urine Glucose (UA) Normal, Urine Ketones Negative, Urine Occult Blood 150 H, Urine Nitrite Positive H, Urine Bilirubin Negative, Urine Urobilinogen Normal, Ur Leukocyte Esterase 25 H, Urine RBC 0-5 SEEN, Urine WBC 5-10 SEEN, Ur Squamous Epith Cells 0 SEEN, Urine Bacteria 3+, Urine Mucus 0 SEEN Imaging [facility] Imaging Services [address] [place] [address] Abdomen/Pelvis without Cont MR#: [id number] Acct: [id number] Name: LINDA PERALTA Rep #: [id number] : 1945 F 79 From: Omar Carrillo MD PCP: Dr. Amos Floyd MD Status: ADM IN Study: Abdomen/Pelvis without Cont Date of Exam: 08/07/24 Exam# [id number] Ordering Dr: Nixon Silverio DO PROCEDURE: ABDOMEN/PELVIS [...] consult for management. Colonic diverticulosis. Reading Location: [id number] CC: Dr. Nixon Silverio DO; Dr. 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 Continue IV ceftriaxone begun in the ER and await culture and sensitivity data. Serialize lactate with level yet to be obtained. Give promethazine prn nausea and vomiting. Give acetaminophen prn for goaz-hu-abxevwmu (level 1- 5/10) pain or fever. Give [...] LVEF ~60% and mild luminal irregularities with fnzmbvnn-yd-bchlao plus grade II mitral valve insufficiency with MVP - We will consult [facility] to see patient thisadmission for [...] responsive hypotension Charges/Coding Visit Charges Inpatient E&M: 54314 Init Hosp L3 08/08/24 0655 <Electronically signed by Nixon Silverio DO> Cosigner Signature (if applicable): CC: Dr. Nixon Silverio DO; Dr. Amos Floyd MD~ Signed [facility] Work Phone: 1(121) 926-431406-19-2025 History and physical note [facility] Medical Records Department [address] [place] [address] H&P Exam - Hospitalist 08/07/241930 MR#: [id number] Acct: [id number] Name: LINDA PERALTA Rep #:[id number] : 1945 79 From: Nixon Sanchez DO [...] LVEF ~60% and mild luminal irregularities with ivkompxc-iy-qrdxom plus grade II mitral valve insufficiency who presents to [facility] ER complaining of hypotension and bradycardia. [...] expected to extend beyond 2midnights. [facility] Medical History MVP (mitral valve prolapse) Aortic stenosis Hypokalemia Elevated serum creatinine Acute prerenal azotemia History of kidney cancer Chronic kidney disease Hypercalcemia Frequent falls Closed head injury (03/20/20) Hypoglycemia (03/20/20) Acute electrocardiogram changes Atopic dermatitis Osteopenia determined by x-ray History of pulmonary embolism 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 (current) use of anticoagulants Orthostatic hypotension Chronic [...] denosumab 60 mg/mL subcutaneous 60 mg subcut [id number] #1 mL 11/24/22 Unknown Rx syringe (Prolia) [...] Other History of DVT (deep vein thrombosis) 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 (current) use of anticoagulants Surgical History History [...] safe at home: Yes additional social history: [place]- Retired patient is retired ROS ROS Narrative [...] 71.7 H, Lymph % (Auto) 15.0 L, Sully % (Auto) 9.7, Eos % (Auto) 1.1, [...] Urine ClarityClear, Urine pH 6.0, Ur Specific Wall 1.015, Urine Protein 30 H, Urine Glucose (UA) Normal, Urine Ketones Negative, Urine Occult Blood 150 H, Urine Nitrite Positive H, Urine Bilirubin Negative, Urine Urobilinogen Normal, Ur Leukocyte Esterase 25 H, Urine RBC 0-5 SEEN, Urine WBC 5-10 SEEN, Ur Squamous Epith Cells 0 SEEN, Urine Bacteria 3+, Urine Mucus 0 SEEN Imaging [facility] Imaging Services [address] [place] [address] Abdomen/Pelvis without Cont MR#: [id number] Acct: [id number] Name: LINDA PERALTA Rep #: [id number] : 1945 F 79 From: Omar Carrillo MD PCP: Dr. Amos Floyd MD Status: ADM IN Study: Abdomen/Pelvis without Cont Date of Exam: 08/07/24 Exam# [id number] Ordering Dr: Nixon Silverio DO PROCEDURE: ABDOMEN/PELVIS [...] consult for management. Colonic diverticulosis. Reading Location: [id number] CC: Dr. Nixon Silverio DO; Dr. Amos Floyd MD ~ Entry Level Web Developer: Signed Assessment & Plan Assessment/Plan (1) Acute [...] prn nausea and vomiting. Give acetaminophen prnfor ucdl-rb-lilyghck (level 1-5/10) pain or fever. Give morphine [...] LVEF ~60% and mild luminal irregularities with ddeaxhfe-in-ftqpwb plus grade II mitral valve insufficiency with MVP - We will consult [facility] to see patient thisadmission for [...] responsive hypotension Charges/Coding Visit Charges Inpatient E&M: 14445 Init Hosp 08/08/24 0662 Cosigner Signature (if applicable): CC: Dr. Nixon Silverio DO; Dr. Amos Floyd MD~ Signed [facility]06-18-2025 Radiology Diagnostic study note [facility] Imaging Services [address] [place], [place] [id number] Abdomen/Pelvis without Cont MR#: [id number] Acct: [id number] Name: LINDA PERALTA Rep #: [id number] : 1945 F 79 From: Oleg Carrillo MD PCP: Dr. Amos Floyd MD Status: A DM IN Study:Abdomen/Pelvis without Cont Date of Exa m: 08/07/24 Exam# [id number] Ordering Dr: Nixon Villareal DO PROCEDURE: ABDOMEN/PELVIS [...] consult for management. Colonic diverticulosis. Reading Location: [id number] CC: Dr. Nixon Silverio DO; Dr. Amos Floyd MD ~ Entry Level Web Developer: Signed [facility]06-18-2025 Discharge summary Author Obinna Uday [facility] Note Date/Time August 07, 2024 7:[address] [facility] Medical Records Department [address] [place] [address] Emergency Department Summary 08/07/24 MR#: [id number] Acct: [id number] Name: LINDA PERALTA Rep #:[id number] : 1945 79 From: Obinna Frye MD [...] Illness/Hospitalization: Yes (Cardiac catheterization earlier this week) [facility] Medical History MVP (mitral valve prolapse) Aortic stenosis Hypokalemia Elevated serum creatinine Acute prerenal azotemia History of kidney cancer Chronic kidney disease Hypercalcemia Frequent falls Closed head injury (03/20/20) Hypoglycemia (03/20/20) Acute electrocardiogram changes Atopic dermatitis Osteopenia determined by x-ray History of pulmonary embolism 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 (current) use of anticoagulants Orthostatic hypotension Chronic kidney disease, stage 3 Wharton disease Essential (primary) hypertension Hyperlipidemia Recurrent deep [...] denosumab 60 mg/mL subcutaneous 60 mg subcut [id number] #1 mL 11/24/22 Unknown Rx syringe (Prolia) [...] Other History of DVT (deep vein thrombosis) 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 (current) use of anticoagulants Surgical History History [...] safe at home: Yes additional social history: [place]- Retired patient is retired ROS ROS ED [...] L. Second liter was ordered. 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 Will give [...] 71.7 H Lymph % (Auto) 15.0 L Sully % (Auto) 9.7 Eos % (Auto) 1.1 [...] Clarity Clear Urine pH 6.0 Ur Specific Wall 1.015 Urine Protein 30 H Urine Glucose [...] follows: Interpretation: Sinus Tachycardia (Rate is 116. IA interval is 130 ms perQRS duration 80 ms. QT duration. 14 ms. [place] is normal. Patient has evidenceof atrial enlargement. There is also evidence of LVH. There is no acute ischemic changes.) Management Discussion w/another healthcare provider: Hospitalist and [employer] (Her director industrial museum was contacted since he sent her in.) [...] independent rotation laboratory results), Discussing w/Patient &/or Family/Retail Sales Teammate, Discussing w/Consultants (Dr. Fermin and ), Arranging Admission or Transfer and Performing Direct Patient Care at Bedside (Treatment for sepsis,'s Moris's disease) Discharge Plan Triage Chief Complaint: Hypotension ED Provider: Obinna Frye Dx/Rx/DC Orders Clinical Impression: Complicated urinary tract infection, Wharton's disease, Chronic kidney disease,stage 3, Aortic stenosis, severe, Acute hypotension, Metabolic acidosis, Elevated troponin, 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 (current) use of anticoagulants Prescriptions: No Action hydrocortisone 10 mg tablet 20 mg PO DAILY@0600 Qty: 90 6RF Rx Instructions: 2 tabs qam 1 tab qpm Prolia 60 mg/mL syringe 60 mg subcut [id number] Qty: 1 1RF methenamine hippurate 1 gram [...] MD [Primary Care Provider] - Print Language: Tuvaluan What to do if you have Problems For any increased pain, shortness of breath, bleeding, nausea or vomiting, chestpain, or any unexpected problems, contact your Primary Care Provider. Call [facility] ([phone]) or report to the closest Emergency Room. Call 911 if necessary. 08/07/241938 <Electronically signed by Obinna Frye MD> Cosigner Signature (if applicable): CC: Dr. Amos Floyd MD ~ Signed [facility] Work Phone: 1(538) 913-792906-18-2025 Discharge summary [facility] Medical Records Department [address] [place] [address] Emergency Department Summary 08/07/24 MR#: [id number] Acct: [id number] Name: LINDA PERALTA Rep #:[id number] : 1945 79 From: Obinna Frye MD [...] Illness/Hospitalization: Yes (Cardiac catheterization earlier this week) [facility] Medical History MVP (mitral valve prolapse) Aortic stenosis Hypokalemia Elevated serum creatinine Acute prerenal azotemia History of kidney cancer Chronic kidney disease Hypercalcemia Frequent falls Closed head injury (03/20/20) Hypoglycemia (03/20/20) Acute electrocardiogram changes Atopic dermatitis Osteopenia determined by x-ray History of pulmonary embolism [facility] (current) use of anticoagulants Orthostatic hypotension Chronic [...] denosumab 60 mg/mL subcutaneous 60 mg subcut [id number] #1 mL 11/24/22 Unknown Rx syringe (Prolia) [...] Other History of DVT (deep vein thrombosis) 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 (current) use of anticoagulants Surgical History History [...] safe at home: Yes additional social history: [place]- Retired patient is retired ROS ROS ED [...] L. Second liter was ordered. 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 Will give [...] 71.7 H Lymph % (Auto) 15.0 L Sully % (Auto) 9.7 Eos % (Auto) 1.1 [...] Clarity Clear Urine pH 6.0 Ur Specific Wall 1.015 Urine Protein 30 H Urine Glucose [...] follows: Interpretation: Sinus Tachycardia (Rate is 116. IA interval is 130 ms perQRS duration 80 ms. QT duration. 14 ms. [place] is normal. Patient has evidenceof atrial enlargement. There is also evidence of LVH. There is no acute ischemic changes.) Management Discussion w/another healthcare provider: Hospitalist and [employer] (Her director industrial museum was contacted since he sent her in.) [...] independent rotation laboratory results), Discussing w/Patient &/or Family/Retail Sales Teammate, Discussing w/Consultants (Dr. Fermin and ), Arranging Admission or Transfer and Performing Direct Patient Care at Bedside (Treatment for sepsis,'s Wharton's disease) Discharge Plan Triage Chief Complaint: Hypotension ED Provider: Obinna Frye Dx/Rx/DC Orders Clinical Impression: Complicated urinary tract infection, Wharton's disease, Chronic kidney disease,stage 3, Aortic stenosis, severe, Acute hypotension, Metabolic acidosis, Elevated troponin, 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 (current) use of anticoagulants Prescriptions: No Action hydrocortisone 10 mg tablet 20 mg PO DAILY@0600 Qty: 90 6RF Rx Instructions: 2 tabs qam 1 tab qpm Prolia 60 mg/mL syringe 60 mg subcut [id number] Qty: 1 1RF methenamine hippurate 1 gram [...] MD [Primary Care Provider] - Print Language: Tuvaluan What to do if you have Problems For any increased pain, shortness of breath, bleeding, nausea or vomiting, chestpain, or any unexpected problems, contact your Primary Care Provider. Call [facility] ([phone]) or report tothe closest Emergency Room. Call 911 if necessary. 08/07/241938 Cosigner Signature (if applicable): CC: Dr. Amos Floyd MD ~ Signed [facility]06-04-2025 NoteHNO ID: [id number] Author: AMOS FLOYD MD Service: ? Author Type: Physician Type: Progress Notes Filed: 07/24/2024 12:45 Note Text: This note was created using MarketMuseter. Subjective Linda Peralta is a 79 year old female. Recording using ECOtality software for draft documentation of the visit was discussed with the patient/authorized sales and merchandising representative; all questions welcomed and answered. Patient/authorized sales and merchandising representative agreed to proceed Heart Murmur: - [...] on it years ago (more content not included)...[facility]06-04-2025 History of Present illness Narrative* Amos Floyd MD - 07/24/2024 11:28 AM EDT This note was created using Clickpassriter. Subjective Linda Peralta is a 79 year old female. Recording using ECOtality software for draft documentation of the visit was discussed with the patient/authorized sales and merchandising representative; all questions welcomed and answered. Patient/authorized sales and merchandising representative agreed to proceed Heart Murmur: - [...] in diameter incidentally noted on imaging study, [facility]. Social History Tobacco Use Smoking status: Never [...] ICD10: E27.40 Stable, and monitored by her extension service supervisor. - HYDROCORTISONE 10 MG TABLET 8. Encounter for immunization - ICD9: V03.89, ICD10: Z23 - [employer] COVID-19 VACCINE AGE 12+ YR (COMIRNATY) Amos Floyd MD documented in this encounterDet[facility] Radiology Diagnostic study note [facility] Imaging Services [address] [place], [place] [address] Chest PA and Lateral MR#: [id number] Acct: [id number] Name: LINDA PERALTA Rep #: [id number] : 1945 F 79 From: Bobbi Parada MD PCP: Dr. Amos Floyd MD Status: P RE TXC Study:Chest PA and Lateral Date of Exam: 07/23/24 Exam# [id number] Ordering Dr: Heaven Bolton E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 E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 PROCEDURE: CHEST PA AND LATERAL 07/23/2024 REASON [...] pulmonary vascular congestion. Mild cardiomegaly. Reading Location: [id number] CC: E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 Heaven Bolton; Dr. Amos Floyd MD ~ Entry Level Web Developer: Signed [facility]06-03-2025 Evaluation note* Diagnosis Onset Date Resolution Status Admit Date Aortic stenosis acute July 23, 2024 8:33am Essential (primary) hypertension chronic July 23, 2024 8 :33am Hyperlipidemia chronic July 23, 2024 8:33am History of non-ST elevation myocardial infarction (NSTEMI) April, resolved J [facility] 2024 8:33am Chronic kidney disease, stage 3 inac tive July 23, 2024 8:33am 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 (current) use of anticoagulants inactive July 23, [...] 3 inac tive August 07, 2024 8:16pm [facility] (current) use of anticoagulants inactive August 07, 2024 8:16pm MVP (mitral valve prolapse) inactive August 07, 2024 8:16pm Overweight (BMI 25.0-29.9) inactive August 07, 2024 8:16pm [facility] Work Phone: 1(164) 149-503506-03-2025 Evaluation note* Diagnosis Onset Date Resolution Status Admit Date Aortic stenosis acute July 23, 2024 8:33am Essential (primary) hypertension chronic July 23, 2024 8:33am Hyperlipidemia chronic July 23, 2024 8:33am History of non-ST elevation myocardial infarction (NSTEMI) April, resolved July 23 8:33am Chronic kidney disease, stage 3 inactive July 23, 2024 8:33am 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 (current) use of anticoagulants inactive July 23, [...] 212024 8:16pm Sepsis resolved August 07 8:16pm Wharton's disease inactive August 072024 8:16pm Aortic stenosis inactive July 8:16pm Aortic stenosis, severe inactive J 2024 8:16pm Chronic kidney disease, stage 3 inactive August 07, 2024 8:16pm [facility] (current) use of anticoagulants inactive August 07 [...] stage 3 inactive November 14, 2024 8:57am [facility] (current) use of anticoagulants inactive October 8:57am MVP (mitral valve prolapse) inactive November 14, 2024 8:57am [facility] Work Phone: 1(846) 298-857905-21-2025 NoteHNO ID: [id number] Author: ?, ?, ? Service: ? Author Type: LICENSED NURSE Type: Progress Notes Filed: 07/10/2024 09:03 Note Text: Patient presents for Prolia injection. Denies any problems at this time. Patient instructed on any SE of medication, verbalized understanding and agreed to proceed with treatment. Tolerated injection well. Desirae Arzola [facility]04-30-2025 NoteHNO ID: [id number] Author: MARK LEE CPhT Service: ? Author Type: Perinatal Technician Type: Progress Notes Filed: 06/19/2024 15:00 Note [...] Value [facility] History of Present illness Narrative* Mark Lee [...] concerns to be addressed Mark Lee CPhT [facility] Care Pharmacy Team documented in this encounterDetwiler Memorial Hospital04-30-2025 NotePatient Outreach (PHPOHE) LINDA PERALTA ([id number]) 1945 F Date Time Provider Department 06/19/24 [...] concerns to be addressed Mark Lee CPhT [facility] Pharmacy Team Allergies As of Date: 06/19/2024 [...] disease) [I25.10] 04/25/2009 DVT (deep venous thrombosis) ([facility]) [I82.409] 03/23/2012 01/23/2024 Osteopenia on [...] Status:Closed by SIMON LEE (more content not included)...[facility]04-28-2025 NoteHNO ID: [id number] Author: MARK LEE CPhT Service: ? Author Type: Perinatal Technician Type: Progress Notes Filed: 06/17/2024 10:08 Note [...] Mark Lee CPhT [facility]04-28-2025 NotePatient Outreach (PHPOHE) CORINNA Hermes ([id number]) 1945 F Date Time Provider Department 06/17/24 [...] disease) [I25.10] 04/25/2009 DVT (deep venous thrombosis) ([facility]) [I82.409] 03/23/2012 01/23/2024 Osteopenia on [...] in*02/22/2024 Encounter Status:Closed by MARK LEE on 06/17/24[facility] NoteHNO ID: [id number] Author: NAKIA BURK CPhT Service: ? Author Type: Perinatal Technician Type: Progress Notes Filed: 05/14/2024 14:05 Note [...] Nakia Burk CPhT [facility]25 History of Present illness Narrative* Nakia Burk [...] Based Care Pharmacy Team documented in this encounterDetwiler [facility]03-25-2025 NotePatient Outreach (PHPOHE) LINAD PERALTA ([id number]) 1945 F Date Time Provider Department 05/14/24 AMOS FLOYD PHPOHE During your visit today, we recorded the following information about you: Nakia Burk CPhT 05/14/2024 2:05 PM Signed Patient is identified through a medication adherence outreach initiative [facility] Adherence Category: Hypertension First Review [...] concerns to be addressed Nakia Burk CPhT [facility] Pharmacy Team Allergies As of Date: 05/14/2024 [...] disease) [I25.10] 04/25/2009 DVT (deep venous thrombosis) ([facility]) [I82.409] 03/23/2012 01/23/2024 Osteopenia on [...] in*02/22/2024 Encounter Status:Closed by NAKIA BURK on 05/14/24[facility] Evaluation note* Diagnosis Onset Date Resolution Status Admit Date Aortic stenosis acute April 10:53am [facility] (current) use of anticoagulants acute April 29, 2024 10:53am MVP (mitral valve prolapse) acute April 29, 2024 10:53am Chronic kidney disease, stage 3 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 April 29, 2024 10:53am Essential (primary) hypertension chronic April 29, 2024 10:53am Hyperlipidemia chronic April 10:53am History of non-ST elevation myocardial infarction (NSTEMI) April, resolved M [facility] 2024 10:53am [facility] Work Phone: 1(393) 199-669203-10-2025 Evaluation note* Diagnosis Onset Date Resolution Status Admit Date Aortic stenosis acute April 10:53am [facility] (current) use of anticoagulants acute April 29, 2024 10:53am MVP (mitral valve prolapse) acute April 29, 2024 10:53am Chronic kidney disease, stage 3 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 April 29, 2024 10:53am Essential (primary) hypertension chronic April 29, 2024 10:53am Hyperlipidemia chronic April 10:53am History of non-ST elevation myocardial infarction (NSTEMI) April, resolved M [facility] 2024 10:53am Severe aortic stenosis acute 2024 8:33am [facility] Work Phone: 1(591) 162-108603-10-2025 Evaluation note* Diagnosis Onset Date Resolution Status Admit Date Aortic stenosis acute April 10:53am [facility] (current) use of anticoagulants acute April 29, 2024 10:53am MVP (mitral valve prolapse) acute April 29, 2024 10:53am Chronic kidney disease, stage 3 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 gm April 29, 2024 10:53am Essential (primary) hypertension chronic April 29, 2024 10:53am Hyperlipidemia chronic April 10:53am History of non-ST elevation myocardial infarction (NSTEMI) April, resolved M [facility] 2024 10:53am Aortic stenosis acute July 23, 2024 8:33am [facility] (current) use of anticoagulants acute July 23, 2024 8 :33am MVP (mitral valve prolapse) acute July 23, 2024 8:33am Chronic kidney disease, stage 3 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 July 23, 2024 8:33am Essential (primary) hypertension chronic July 23, 2024 8 :33am Hyperlipidemia chronic July 23, 2024 8:33am History of non-ST elevation myocardial infarction (NSTEMI) April, resolved J [facility] 2024 8:33am [facility] Work Phone: 1(608) 435-992103-10-2025 Evaluation note* Diagnosis Onset Date Resolution Status Admit Date Aortic stenosis acute April 10:53am [facility] (current) use of anticoagulants acute April 29, 2024 10:53am MVP (mitral valve prolapse) acute April 29, 2024 10:53am Chronic kidney disease, stage 3 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 April 29, 2024 10:53am Essential (primary) hypertension chronic April 29, 2024 10:53am Hyperlipidemia chronic April 10:53am History of non-ST elevation myocardial infarction (NSTEMI) April, resolved M [facility] 2024 10:53am Aortic stenosis acute July 23, 2024 8:33am [facility] (current) use of anticoagulants acute July 23, 2024 8 :33am MVP (mitral valve prolapse) acute July 23, 2024 8:33am Chronic kidney disease, stage 3 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 July 23, 2024 8:33am Essential (primary) hypertension chronic July 23, 2024 8 :33am Hyperlipidemia chronic July 23, 2024 8:33am History of non-ST elevation myocardial infarction (NSTEMI) April, resolved J [facility] 2024 8:33am Acute cystitis without hematuria acute August 07, 2024 8:16pm Acute hypotension acute August 072024 8:16pm 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 8:16pm Aortic stenosis acute July 8:16pm Aortic stenosis, severe acute J [facility] 2024 8:16pm Complicated urinary tract infection acute August 07, 2024 8:16pm Dark stools acute August 07 8:16pm Dehydration acute August 07 8:16pm Elevated troponin acute August 072024 8:16pm Leukocytosis acute August 07, 2 025 8:16pm 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 (current) use of anticoagulants acute August 07, 2024 8:16pm Metabolic acidosis acute July 212024 8:16pm MVP (mitral valve prolapse) acute August 07, 2024 8:16pm Overweight (BMI 25.0-29.9) acute August 07, 2024 8:16pm Sepsis acute August 07 8:16pm Chronic kidney disease, stage 3 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 August 07, 2024 8:16pm [facility] Work Phone: 1(987) 927-807803-10-2025 Evaluation note* Diagnosis Onset Date Resolution Status Admit Date Aortic stenosis acute April 10:53am [facility] (current) use of anticoagulants acute April 29, 2024 10:53am MVP (mitral valve prolapse) acute April 29, 2024 10:53am Chronic kidney disease, stage 3 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 April 29, 2024 10:53am Essential (primary) hypertension chronic April 29, 2024 10:53am Hyperlipidemia chronic April 10:53am History of non-ST elevation myocardial infarction (NSTEMI) April, resolved M [facility] 2024 10:53am Aortic stenosis acute July 23, 2024 8:33am 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 (current) use of anticoagulants acute July 23, 2024 8 :33am MVP (mitral valve prolapse) acute July 23, 2024 8:33am Chronic kidney disease, stage 3 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 July 23, 2024 8:33am Essential (primary) hypertension chronic July 23, 2024 8 :33am Hyperlipidemia chronic July 23, 2024 8:33am History of non-ST elevation myocardial infarction (NSTEMI) April, resolved J [facility] 2024 8:33am Acute cystitis without hematuria acute August 07, 2024 8:16pm Acute hypotension acute August 072024 8:16pm 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 8: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 Aortic stenosis acute July 8:16pm Aortic stenosis, severe acute J [facility] 2024 8:16pm Bradycardia acute August 07 8:16pm Complicated urinary tract infection acute August 07, 2024 8:16pm Dark stools acute August 07 8:16pm Dehydration acute August 07 8:16pm Elevated troponin acute August 072024 8:16pm Leukocytosis acute August 07, 2 025 8:16pm 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 (current) use of anticoagulants acute August 07, 2024 8:16pm Metabolic acidosis acute July 212024 8:16pm MVP (mitral valve prolapse) acute August 07, 2024 8:16pm Overweight (BMI 25.0-29.9) acute August 07, 2024 8:16pm Sepsis acute August 07 8:16pm Chronic kidney disease, stage 3 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 Author Type: Profiling Machine Setup Operator Type: Progress Notes Filed: 04/05/2024 15:22 Note [...] or unnecessary to reach patient: Left message Darudarhart message sent Navigation Signature: Del Saravia MA April 05, 2024 3:11 [facility]02-14-2025 History of Present illness Narrative* Del Saravia [...] or unnecessary to reach patient: Left message [place] message sent Navigation Signature: Del Saravia MA April 05, 2024 3:11 PM documented in this encounterDetwiler [facility] Hospital02-14-2025 NotePatient Outreach (NETNAV) LINDA PERALTA ([id number]) 1945 F Date Time Provider Department 04/05/24 DEL SARAVIA During your visit today, we recorded the following information about you: Del Saravia MA 04/05/2024 3:22 PM Signed POPULATION HEALTH NAVIGATION OUTREACH Action/FYI - [employer] High Risk - 1st attempt Next office visit: 07/24/24 - 6 mo follow up Last AWV; 01/23/24 No Health Maintenance Voicemail message left and Apparenthart message sent offering to assist in scheduling [...] disease) [I25.10] 04/25/2009 DVT (deep venous thrombosis) ([facility]) [I82.409] 03/23/2012 01/23/2024 Osteopenia on [...] in*02/22/2024 Encounter Status:Closed by DEL SARAVIA on 04/05/24[facility] 02-[facility] Telephone encounter Note* Telephone Encounter - Carlos Roe RN - 02/22/2024 9:13 AM EST Pt called and is notified of results and given providers message. Pt voices understanding. States her Chief Of Hospital Medicine is Dr. Alexander Gregory in [facility]. 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 Will fax this msg and CT scan report to his office. [facility]01-02-2025 Miscellaneous Notes* Telephone Encounter - Carlos Roe RN - 02/22/2024 9:13 AM EST Pt called and is notified of results and given providers message. Pt voices understanding. States her Chief Of Hospital Medicine is Dr. Alexander Gregory in [facility]. 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 Will fax this msg and CT scan report to his office. * Telephone Encounter - Carlos Roe RN - 02/22/2024 9:09 AM EST ----- Message from Amos Floyd MD sent at 02/22/2024 12:42 AM EST ----- Nodule on chest xray is a healed rib fracture. What needs follow up is a 1.1 cm nodule of her rightthyroid. She should have her extension service supervisor follow up on this at her next routine appointment. documented in this encounterDetwiler [facility] Hospital01-02-2025 Telephone encounter Note * Telephone Encounter - Carlos Roe RN - 02/22/2024 9:09 AM EST ----- Message from Amos Floyd MD sent at 02/22/2024 12:42 AM EST ----- Nodule on chest xray is a healed rib fracture. What needs follow up is a 1.1 cm nodule of her rightthyroid. She should have her extension service supervisor follow up on this at her next routine appointment. [facility]12-12-20[facility] History of Present illness Narrative* Gisela [...] PATIENT PRESENTS WITH AN IMPLANTABLE OR ATTACHED TOY DESIGNER: No RADIOLOGY DEPARTMENT: CT; Exam(s) Completed: Chest PERIPHERAL IV DATA: Not applicable SIGNED BY: GENNA Higgins February 01, 2024 11:10 AM documented in this encounterDetwiler Memorial Hospital12-12-2024 NoteHNO ID: [id number] Author: GISELA BAIRD CT Service: Radiology Author Type: Application Development Team Lead Type: Progress Notes Filed: 02/01/2024 11:10 Note [...] PATIENT PRESENTS WITH AN IMPLANTABLE OR ATTACHED TOY DESIGNER: No RADIOLOGY DEPARTMENT: CT; Exam(s) Completed: Chest PERIPHERAL IV DATA: Not applicable SIGNED BY: GENNA Higgins February 01, 2024 11:10 [facility]12-03-2024 Instructions* Patient Instructions* Amos Floyd MD [...] review all the medicines you take, even uwhf-dxr-iuejekw medicines. As you get older, the way [...] have certain medical conditions. documented in this encounterDetwiler Memorial Hospital12-03-2024 NoteHNO ID: [id number] Author: AMOS FLOYD MD Service: ? Author Type: Physician Type: Progress Notes Filed: 01/23/2024 14:09 Note Text: This note was created using Metago. Subjective Linda Peralta is a 78 year [...] [birth year] Stable - Couns (more content not included)...[facility]12-03-[facility] History of Present illness Narrative* Amos Floyd MD - 01/23/2024 10:34 AM EST This note was created using Clickpassriter. Subjective Linda Peralta is a 78 year [...] immunization - ICD9: V03.89, ICD10: Z23 - [employer] COVID-19 VACCINE AGE 12+ YR (COMIRNATY) - [...] - General Outside specialists seen: Cardiology-Dr. Ortega [facility] Nephrology- Dr. Jennifer Tarango Camp Maintenance Supervisor- Dr. Isreal Carpio Endocrinology- Dr. Alexander Gregory. [...] interested in routine screening. documented in this encounterDetwiler Memorial Hospital12-03-2024 NoteHNO ID: [id number] Author: AMOS FLOYD MD Service: ? Author [...] - General Outside specialists seen: Cardiology-Dr. Ortega [facility] Nephrology- Dr. Jennifer Tarango Camp Maintenance Supervisor- Dr. Isreal Carpio Endocrinology- Dr. Alexander Gregory. [...] she was no longer interested in routine screening.[facility]11[facility] Telephone encounter Note* Telephone Encounter - Kelley Rivera LPN - 01/19/2024 3:49 PM EST Called pt and reviewed. She says cardiology wanted chest CT repeated next year. She has appt with pcp 01/23/24 she will review then to see when this needs repeated. [facility]11-29-2024 Miscellaneous Notes* Telephone Encounter - Kelley [...] support you in caring for your patient. [facility] is committed to providing safe care [...] to the appropriate caregiver. documented in this encounterDetwiler Memorial Hospital11-29-2024 Telephone encounter Note * Telephone Encounter [...] support you in caring for your patient. [facility] is committed to providing safe care [...] we can redirect to the appropriate caregiver. [facility]11-25-2024 NoteHNO ID: [id number] Author: AMOS FLOYD MD Service: ? Author Type: Physician Type: Progress Notes Filed: 01/15/2024 18:51 Note Text: ASSESSMENT/PLAN: 1. Nodule of lower lobe of right lung needing follor up CT - ICD9: 793.11, ICD10: R91.1 - CT CHEST WO IVCLAURA [facility]11-25-[facility] History of Present illness Narrative* Amos Floyd MD - 01/15/2024 6:50 PM EST ASSESSMENT/PLAN: 1. Nodule of lower lobe of right lung needing follor up CT - ICD9: 793.11, ICD10: R91.1 - CT CHEST WO SHEILA Floyd MD documented in this encounterDetwiler Memorial Hospital11-21-2024 NoteHNO ID: [id number] Author: DESIRAE ARZOLA LPN Service: ? Author Type: LICENSED NURSE Type: Progress Notes Filed: 01/11/2024 13:42 Note Text: Patient presents for Prolia injection. Denies any problems at this time. Patient instructed on any SE of medication, verbalized understanding and agreed to proceed with treatment. Tolerated injection well. [facility]irae [facility] History of Present illness Narrative* Desirae Arzola LPN - 01/11/2024 1:41 PM EST Patient presents for Prolia injection. Denies any problems at this time. Patient instructed on any SE of medication, verbalized understanding and agreed to proceed with treatment. Tolerated injectionwell. Desirae Arzola LPN documented in this encounterDetwiler Memorial Hospital11-11-2024 History of Present illness Narrative* Marguerite [...] PATIENT PRESENTS WITH AN IMPLANTABLE OR ATTACHED TOY DESIGNER: No RADIOLOGY DEPARTMENT: General X-ray: Exam(s) Completed: Chest X-Ray PERIPHERAL IV DATA: Not applicable SIGNED BY: RT Doug(R) January 01, 2024 1:40 PM documented in this encounterDetwiler Memorial Hospital11-11-2024 NoteHNO ID: [id number] Author: MARGUERITE WALLER RT(R) Service: Radiology Author [...] PATIENT PRESENTS WITH AN IMPLANTABLE OR ATTACHED TOY DESIGNER: No RADIOLOGY DEPARTMENT: General X-ray: Exam(s) Completed: Chest X-Ray PERIPHERAL IV DATA: Not applicable SIGNED BY: RT Doug(R) January 01, 2024 1:40 [facility]11-08-2024 History of Present illness Narrative* Javier Abbott PA-C - 12/29/2023 9:30 AM EST Images from the original note were not included. [facility] PATIENT NAME: Linda Peralta [...] had X-ray a few weeks before at [facility] and we don't have the images [...] W/COLLJ SPEC WHEN PFRMD 03/26/2010 Inpatient at [facility] ESOPHAGOGASTRODUODENOSCOPY TRANSORAL DIAGNOSTIC 02/2002 EGD ESOPHAGOGASTRODUODENOSCOPY [...] Age of Onset Coronary Artery Disease Mother [place] at 87y.o. Hypertension Mother Stroke Father Coronary [...] Department Center 01/11/2024 2:00 PM [facility]24 9:40 AM Amos Floyd MD [facility] Follow-up Plan Additional exams needed for this [...] no, patient declined? No documented in this encounterDetwiler Memorial Hospital11-08-2024 NoteHNO ID: [id number] Author: JAVIER ABBOTT PA-C Service: ? Author Type: Physician Single Spindle Screw Machine Operator Type: Progress Notes Filed: 03/28/2024 16:18 Note Text: [facility] PATIENT NAME: Linda Peralta PRIMARY CARE PHYSICIAN: Amos Floyd MD CHIEF COMPLAINT: Abnormal finding of diagnostic imaging INITIAL VISIT: Yes Patient seen on Audio Only Visit platform. Location of patient: [place] I have communicated my name and active licensure. The patient's identity and physical location were verified at the time of this visit. Either the patient or their legal sales and merchandising representative has been informed of the risks [...] had X-ray a few weeks before at [facility] and we don't have the images [...] eczema, due to unspecified cause 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Wharton's disease Cystocele, midline 07/23/2007 Diverticulosis of colon (without mention of hemorrhage) DVT (deep venous thrombosis) ([facility]) 03/23/2012 DVT of lower extremity (deep venous thrombosis) ([facility]) 03/27/2009 Esophageal reflux Gallstones 03/06/2016 Hypercalcemia 03/19/2009 Hypertension Nonrheumatic aortic valve stenosis 06/30/2023 NSTEMI (non-ST elevated myocardial infarction) ([facility]) 04/27/2009 Cardiac cath normal 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 11/13/2013 Alendronate (Fosamax) start: 03/09/2017-03/09/2022 Other adrenal hypofunction PMH - PAST MEDICAL HISTORY OF Left kidney donated Psoriasis and similar disorder Pure hypercholesterolemia 02/17/2015 Right renal mass 03/27/2009 Stage 3b chronic kidney disease ([facility]) 07/29/2020 Syncope Tonic pupillary reaction Unspecified disorder [...] W/COLLJ SPEC WHEN PFRMD 03/26/2010 Inpatient at [facility] ESOPHAGOGASTRODUODENOSCOPY TRANSORAL DIAGNOSTIC 02/2002 EGD ESOPHAGOGASTRODUODENOSCOPY [...] Age of Onset Coronary Artery Disease Mother [place] at 87y.o. Hypertension Mother Stroke Father Coronary [...] Medication Sig simvastatin (ZOCOR (more content not included)...[facility] 12-28-2023 Miscellaneous Notes* Telephone Encounter - Kelley Rivear LPN - 12/28/2023 11:57 AM EST Pt notified. Nurse visit arranged for 01/01/24. * Telephone Encounter - Kelley Rivera LPN - 12/28/2023 10:50 AM EST Called Pattie at [phone]. This PA is completed with pharmacy to aileen aureliano at [phone]. This reference number is [id number]. Called pharmacy and they report there is a PA already on file for Dr. Rey Vann covered until 05/11/24. Did start a new PA for pcp. This was reviewed over the phone and PA approved from 12/28/23 to 12/27/24. This auth number is [id number]. They will also fax approval notice too. [...] 1:21 PM EST Bone density completed at [facility]. View External Imaging - Bone Density [ID [id number]] Previously completed PA for prolia to be [...] prilia is still recommended documented in this encounterDetwiler Memorial Hospital11-07-2024 Telephone encounter Note * Telephone Encounter - Kelley Rivera LPN - 12/28/2023 11:57 AM EST Pt notified. Nurse visit arranged for 01/01/24. [facility] [facility] Telephone encounter Note* Telephone Encounter - Kelley Rivera LPN - 12/28/2023 10:50 AM EST Called Pattie at [phone]. This PA is completed with pharmacy to aileen aureliano at [phone]. This reference number is [id number]. Called pharmacy and they report there is a PA already on file for Dr. Rey Vann covered until 05/11/24. Did start a new PA for pcp. This was reviewed over the phone and PA approved from 12/28/23 to 12/27/24. This auth number is [id number]. They will also fax approval notice too. [facility]11-07-2024 Telephone encounter Note* Telephone Encounter - Kelley Rivera LPN - 12/28/2023 10:08 AM EST Called pt and she was notified. She is willing to keep getting the prolia if insurance will cover. Will contact them for PA for prolia. [facility]11-06-2024 Telephone encounter Note* Telephone Encounter - Ariella Christianson RN - 12/27/2023 5:56 PM EST Attempted to contact patient. No answer. Try again. Ariella Christianson, RN [facility]11-06-2024 Telephone encounter Note* Telephone Encounter - Amos Floyd MD - 12/27/2023 5:46 PM EST I see she still recently had issues with high calcium and her vitamin D is in a good range. So for her, at this time, additional calcium and vitamin D is not recommended. [facility]11-06-2024 Telephone encounter Note* Telephone Encounter - Milagros Burton LPN - 12/27/2023 3:04 PM EST Patient returned call and went over results, notes from Dr Floyd with understanding. Patient said she is not taking any Calcium or Vitamin D. What dose and is she to start taking both? [facility]11-06-2024 Telephone encounter Note* Telephone Encounter - Isha Wright LPN - 12/27/2023 2:38 PM EST Left message for Patient to call office. Isha Wright LPN [facility]11-06-2024 Telephone encounter Note* Telephone Encounter - Amos [...] of treatment is needed. Amos Floyd MD [facility]11-05-2024 Telephone encounter Note* Telephone Encounter - Kelley Rivera LPN - 12/26/2023 1:21 PM EST Bone density completed at [facility]. View External Imaging - Bone Density [ID [id number]] Previously completed PA for prolia to be [...] nurse visit) if prilia is still recommended [facility]10-30-2024 NoteHNO ID: [id number] Author: NATHALY REN APRN.SUPPLY PERSON Service: ? Author Type: Nurse Practitioner Type: [...] call back and/or check MyChart Routed to [employer] for scheduling 12/20/2023 Imaging result: routed to [...] chest is needed CT chest outside hospital 05/15/2023[facility]10-30-2024 History of Present illness Narrative* Nathaly Ren APRN.SUPPLY PERSON - 12/20/2023 12:29 PM EDT Images from [...] call back and/or check MyChart Routed to [employer] for scheduling 12/20/2023 Imaging result: routed to [...] chest outside hospital 05/15/2023 [facility] Telephone encounter Note * Telephone Encounter - Torsten Vora MA - 12/11/2023 9:20 AM EDT Patient notified, verbalized understanding. DXA scheduled for 12/20 [facility]10-21-2024 Miscellaneous Notes* Telephone Encounter - Torsten [...] Please advise patient, and cancel Rx at [facility] [place]. * Telephone Encounter - Kelley Rivera LPN [...] 12/07/2023 10:08 AM EDT Fax rec'd from [facility] regarding the prolia. They note the prescription [...] went to pharmacy benefits. Chaparro PERALTA (Kelly: [id number]) - [id number] Prolia 60MG/ML syringes status: PA Request Created: [...] her insurance from 02/20/23 to 02/20/2024 through [facility]. Will call her insurance to see if we can just change the provider and place of service. There wouldbe no change with her clinical requirements. * Telephone Encounter - Kelley Rivera LPN - 12/05/2023 4:19 PM EDT PA needed for prolia. documented in this encounterDet[facility]10-19-2024 Telephone encounter Note * Telephone Encounter - Amos Floyd MD - 12/09/2023 12:11 PM EDT Okay. Do bone density and we'll evaluate options at her follow up in January. [facility]10-18-2024 Telephone encounter Note* Telephone Encounter - [...] advise patient, and cancel Rx at [facility]. [facility]10-17-2024 Telephone encounter Note* Telephone Encounter - [...] injection for the nurse to give. T [facility]10-17-2024 Telephone encounter Note* Telephone Encounter - Amos Floyd MD - 12/07/2023 12:16 PM EDT The following approved medication requests have been transmitted electronically. Requested Prescriptions Signed Prescriptions Disp Refills denosumab (PROLIA) 60 mg/mL 1 mL 1 Sig: Inject 1 mL subcutaneously once every 6 months. Authorizing Provider: AMOS FLOYD MD [facility]10-17-2024 Telephone encounter Note* Telephone Encounter - Kelley Rivera LPN - 12/07/2023 10:08 AM EDT [facility] the prolia. They note the prescription is already covered by the plan with no restrictions with pharmacy D plan. Pt will need rx to local pharmacy and bring to an appt with nurse schedule to be given here. [facility]10-16-2024 Telephone encounter Note* Telephone Encounter - Kelley Rivera LPN - 12/06/2023 4:32 PM EDT Pt notified we are waiting for insurance to review a prior auth for the prolia [facility]10-16-2024 Telephone encounter Note* Telephone Encounter - [...] Rivera LPN December 06, 2023 4:29 PM [facility]10-16-2024 Miscellaneous Notes* Telephone Encounter - Kelley [...] 06, 2023 4:29 PM documented in this encounterDetwiler [facility]10-16-2024 Telephone encounter Note * Telephone Encounter - Kelley Rivera LPN - 12/06/2023 3:55 PM EDT This went to pharmacy benefits. LINDA PERALTA (Kelly: [id number]) - [id number] Prolia 60MG/ML syringes status: PA Request Created: December 06, 2023 Sent: December 06, 2023 Will see what their response is,may have to call for medical benefits PA coverage to review. [facility]10-16-2024 Telephone encounter Note* Telephone Encounter - Kelley Rivera LPN - 12/06/2023 2:15 PM EDT Per benefits inquiry it appears pt is covered now with [employer]. [facility]10-16-2024 Telephone encounter Note* Telephone Encounter - Kelley Rivera LPN - 12/06/2023 2:12 PM EDT Called [employer] and pt no longer covered. This was terminated 02/20/23. [facility]10-16-2024 Telephone encounter Note* Telephone Encounter - Kelley Rivera LPN - 12/06/2023 12:25 PM EDT In review the prolia is already approved with her insurance from 02/20/23 to 02/20/2024 through [facility]. Will call her insurance to see if we can just change the provider and place of service. There wouldbe no change with her clinical requirements. [facility]10-15-2024 Telephone encounter Note* Telephone Encounter - Kelley Rivera LPN - 12/05/2023 4:19 PM EDT PA needed for prolia. [facility]10-11-2024 Telephone encounter Note* Telephone Encounter - [...] Please review and advise, Salima Pedraza RN [facility]10-11-2024 Miscellaneous Notes* Telephone Encounter - Salima [...] 1:57 PM Dxa scan order faxed to [facility]. * Telephone Encounter - Amos Floyd MD - 11/30/2023 12:24 PM EDT ASSESSMENT/PLAN: 1. Age-related osteoporosis with current pathological fracture with routine healing - ICD9: V54.29,733.01, ICD10: M80.00XD - DENOSUMAB 60 MG/ML SUBCUTANEOUS SYRINGE. Ordered. - DXA-AXIAL SKELETON. Do this at [facility] where she's had previous bone densities. Amos Floyd MD * Telephone Encounter - Va Aguayo RN - 11/28/2023 2:31 PM EDT Patient returned call and given provider's message below. Patient states she does not see Dr. Vann any more-that she was dismissed from them due to Dr. Vann does not work with Wharton's Disease. She states her last Prolia injection was in May and she is due. Patient asking if Dr. Floyd would be agreeable to placing a Prolia injection order for her? Reports she could see a Dr. Gregory in [place], part of [facility], for this but more convenientfor [...] being managed by Dr. King Rocio Elizalde APRN.SUPPLY PERSON * Telephone Encounter - Jeaneth Rodriguez - 11/28/2023 11:42 AM EDT Pt wondering if Dr. Amor can order a prolia shot for her, please review and advise. Jeaneth Rodriguez November 28, 2023 11:42 AM documented in this encounterDetwiler [facility]10-10-2024 Telephone encounter Note * Telephone Encounter - Torsten Vora MA - 11/30/2023 1:57 PM EDT Left message to call office. 11/30/2023 1:57 PM Dxa scan order faxed to [facility]. [facility]10-10-2024 Telephone encounter Note* Telephone Encounter - Amos Floyd MD - 11/30/2023 12:24 PM EDT ASSESSMENT/PLAN: 1. Age-related osteoporosis with current pathological fracture with routine healing - ICD9: V54.29,733.01, ICD10: M80.00XD - DENOSUMAB 60 MG/ML SUBCUTANEOUS SYRINGE. Ordered. - DXA-AXIAL SKELETON. Do this at [facility] where she's had previous bone densities. Amos Floyd MD [facility]10-08-2024 Telephone encounter Note* Telephone Encounter - Va Aguayo RN - 11/28/2023 2:31 PM EDT Patient returned call and given provider's message below. Patient states she does not see Dr. Vann any more-that she was dismissed from them due to Dr. Vann does not work with Wharton's Disease. She states her last Prolia injection was in May and she is due. Patient asking if Dr. Floyd would be agreeable to placing a Prolia injection order for her? Reports she could see a Dr. Gregory in [place], [facility] of [facility], for this but more convenientfor her to ask PCP. Or, does PCP feel she does need any further Prolia injections? Please advise. Thank you. [facility]10-08-2024 Telephone encounter Note* Telephone Encounter - Isha Wright LPN - 11/28/2023 1:55 PM EDT Left message to call & speak to nurse. Isha Wright LPN [facility]10-08-2024 Telephone encounter Note* Telephone Encounter - Rocio Elizalde APRN.SUPPLY PERSON - 11/28/2023 1:38 PM EDT It looks like this is being managed by Dr. King Rocio Elizalde APRN.SUPPLY PERSON [facility]10-08-2024 Telephone encounter Note* Telephone Encounter - Jeaneth Rodriguez - 11/28/2023 11:42 AM EDT Pt wondering if Dr. Amor can order a prolia shot for her, please review and advise. Jeaneth Rodriguez November 28, 2023 11:42 AM [facility]09-24-2024 NoteHNO ID: [id number] Author: ECHO MILLER RN Service: ? Author [...] been in the hospital for Moris's disease, Wharton's crisis, and been treated for hypercalcemia. 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 She was also found to have UTI and hypercalcemia Pt TT [facility] for ADM with NSTEMI. Pt identified by name and . Reason for Review: Payor request Patient Attributed To: HORACE Payer: PATTIE Chart Review For: Utilization: ED Total Patient High CostTotal Patient High Cost {HIGH COST:555379) Quality measure review Payor request for assistance Action Taken: Data submitted to payor Echo Miller RN November 14, 2023 3:40 [facility]09-24-2024 History of Present illness Narrative* Echo Miller [...] been in the hospital for Moris's disease, Wharton's crisis, and been treated for hypercalcemia. 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 She was also foundto have UTI and hypercalcemia Pt TT [facility] for ADM with NSTEMI. Pt identified by name and . Reason for Review: Payor request Patient Attributed To: HORACE Payer: PATTIE Chart Review For: Utilization: ED Total Patient High CostTotal Patient High Cost {HIGH COST:857504) Quality measure review Payor request for assistance Action Taken: Data submitted to payor Echo Miller RN November 14, 2023 3:40 PM documented in this encounterDetwiler [facility]09-24-2024 NotePatient Outreach ([facility]) LINDA PERALTA ([id number]) 1945 F Date Time Provider Department 11/14/23 ECHO MILLER [facility] During your visit today, we recorded the following information about you: Echo Miller RN 11/14/2023 3:48 PM Signed [facility] - CHART REVIEW Provider [facility] Action Chart review 06/08/23 [facility] ED for patient had 2 episodes of chest pain approximately 15 minutes, described as a dull pressure in her chest associate with nausea that have since resolved. This happened earlier this morning. Patient is on Coumadin, for repeat lower extremity DVTs. Patient was recently been in the hospital for Wharton's disease, Wharton's crisis, and been treated for hypercalcemia. 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 She was also found to have UTI and hypercalcemia Pt TT [facility] for ADM with NSTEMI. Pt identified by name and . Reason for Review: Payor request Patient Attributed To: HORACE Payer: PATTIE Chart Review For: Utilization: ED Total Patient High CostTotal Patient High Cost {HIGH COST:974905) Quality measure review Payor request for assistance [...] Weakness [R53.1] 05/31/2023 NS (more content not included)...[facility]07-30-2024 History of Present illness Narrative* Kole El, PT - 09/19/2023 12:06 PM EDT Program_ID:[id number] Access Code: [email or web address] URL: [email or web address] Date: 09-19-2023 Prepared By: Kole El Program [...] included: Therapeutic exercise, Neuromuscular re-education, Manual therapy, Self-intermediate management, andGait training. Updated 05/31/23 & 07/05/23, 08/09/23, 09/19/23. Goals for Episode of Care: created on 03/28/23 through 09/19/23 [place] in home exercise program.-- MET Patient will [...] 1203 Kole El PT documented in this encounterDetwiler [facility]07-23-2024 History of Present illness Narrative* Kole [...] 1152 Kole El PT documented in this encounterDetwiler [facility] Hospital07-19-2024 History of Present illness Narrative* Kole [...] 1508 Kole El PT documented in this encounterDetwiler [facility] Hospital07-10-2024 History of Present illness Narrative* Kole [...] 1528 Kole El PT documented in this encounterDetwiler [facility] Hospital07-01-2024 History of Present illness Narrative* Jacinda [...] 1225 AURELIA Crockett PT documented in this encounterDetwiler [facility] Hospital06-21-2024 History of Present illness Narrative* Amos Floyd MD - 08/11/2023 10:58 AM EDT This note was created using Clickpassriter. Subjective Linda Peralta is a 78 year old female here with her daughter. Her blood pressure was improving, and she was able to complete physical therapy this week. I had advised her to take amlodipine 5 mg 2 tablets daily, which was from her director industrial museum. They had been titrating her dose upward. She was scheduled to see her extension service supervisor, Dr. Gregory at . He did not [...] Group. Amos Floyd MD documented in this encounterDetwiler [facility] Hospital06-20-2024 Telephone encounter Note * Telephone Encounter - Isha Wright LPN - 08/10/2023 10:28 AM EDT Below recommendation left on identified vm. Isha Wright LPN [facility]06-20-2024 Miscellaneous Notes* Telephone Encounter - Isha [...] high blood pressure. Patient did not read [facility] message 07/18. Clarify with patient what she is taking for hypertension. Further instructions to follow. Keep appointment this week. documented in this encounterDetwiler Memorial Hospital06-20-2024 Telephone encounter Note * Telephone Encounter - Amos Floyd MD - 08/10/2023 6:10 AM EDT I think she should increase amlodipine to 10 mg daily. [facility] gave her 90 day supply so take two tablets daily. [facility]06-19-2024 History of Present illness Narrative* [...] of Care: created on 03/28/23 through 08/09/23 [place] in home exercise program.-- Met continue to [...] Patient to be seen for Therapeutic exercise (00081), Neuromuscular re-education (78704), Manual therapy (86120), Self-intermediate management (23930), Therapeutic activities (72950), Gait Training (30662), Patient/Family/Caregiver Education, General Conditioning PLAN FOR NEXT [...] 957 Kole El PT documented in this encounterDetwiler [facility] Hospital06-18-2024 Telephone encounter Note * Telephone Encounter [...] to her appt. 08/11/2023. Isha Wright LPN [facility]06-18-2024 Telephone encounter Note* Telephone Encounter - Amos Floyd MD - 08/08/2023 2:42 PM EDT PT not done due to high blood pressure. Patient did not read [facility] message 07/18. Clarify with patient what she is taking for hypertension. Further instructions to follow. Keep appointment this week. [facility]06-12-20[facility] History of Present illness Narrative* Kole [...] toward set goals. PLAN FOR NEXT VISIT: IA. SUBJECTIVE: Patient reports starting to take amlodipine [...] Intra BP 1: 164/108 (Leaving Appt.) TREATMENT: Self-Retirement Management: 1: *Subjective assessment taken, discussed patient's [...] 931 Kole El PT documented in this encounterDetwiler Memorial Hospital05-29-2024 History of Present illness Narrative* Kole [...] 2 weeks ago she tried to see Import Export Coordinator but reports the physician wasn't there and was rescheduled 07/26/23 @2pm. Patient reports she stopped taking a medication prescribed to her (she doesn't know the name off hand) because it was making her BP reading to high - states her PCP and Import Export Coordinator are not aware of this. Pain: Not Assessed this visit. OBJECTIVE MEASURES WITH LEVEL OF FUNCTION: Vitals BP: 164/108 (Resting.) Pulse: 85 Pre BP: 163/117 (12 Minutes into appt after sitting and discussing BP and medications.) Intra BP 1: 170/116 (Leaving Appt.) TREATMENT: Self-Retirement Management: 1: *Subjective assessment taken, BP readings [...] 919 Kole El PT documented in this encounterDetwiler [facility] Hospital05-15-2024 History of Present illness Narrative* Kole [...] of Care: created on 03/28/23 through 08/09/23 [place] in home exercise program.-- Met continue to [...] Patient to be seen for Therapeutic exercise (51813), Neuromuscular re-education (52161), Manual therapy (16499), Self-intermediate management (02219), Therapeutic activities (05236), Gait Training (27051), Patient/Family/Caregiver Education, General Conditioning PLAN FOR NEXT [...] resting above clinic guidelines for physical activity. Self-Retirement Management: 1: *Progress check & subjective assessment [...] 1015 Kole El PT documented in this encounterDetwiler Memorial Hospital05-10-2024 History of Present illness Narrative* Amos Floyd MD - 06/30/2023 9:49 AM EDT This note was created using Clickpassriter. Subjective Linda Peralta is a 78 year old female was here with her daughter. She started having issues with hypercalcemia and weakness 05/14. Her extension service supervisor sent her to the ED for IV [...] (Arteriosclerotic Heart Disease) Dvt (Deep Venous Thrombosis) ([facility]) Chronic Nonallergic Rhinitis Pure hypercholesterolemia Atopic Neurodermatitis Hypertension Stage 3b Chronic Kidney Disease (Hcc) Hypertensive Kidney Disease With Stage 3b Chronic Kidney Disease (Hcc) Age-Related Osteoporosis With Current Pathological Fracture With Routine Healing Closed Displaced Fracture of Fifth Metatarsal Bone of Right Foot Gait Abnormality Physical Deconditioning Weakness Nstemi (Non-St Elevated Myocardial Infarction) ([facility]) Adrenal Insufficiency ([facility]) Nonrheumatic Aortic Valve Stenosis Current Outpatient [...] (primary diagnosis) Follow up with endocrinology at [facility]. Labs ordered to facilitate and CC'd - [...] cardiology. Amos Floyd MD documented in this encounterDetwiler Memorial Hospital05-08-2024 History of Present illness Narrative* Kole [...] 1202 Kole El PT documented in this encounterDetwiler Memorial Hospital05-01-2024 History of Present illness Narrative* Kole El PT - 06/21/2023 1:42 PM EDT Program_ID:[id number] Access Code: [email or web address] URL: [email or web address] Date: 06-21-2023 Prepared By: Kole El Program [...] RLE. 4: Standing Marches: 2x10 ea. 5: [place] Carries: 2 Laps of 60 Feet, 8#db [...] 1342 Kole El PT documented in this encounterDetwiler Memorial Hospital04-29-2024 Telephone encounter Note * Telephone Encounter - Delfino Hannah APRN.SUPPLY PERSON - 06/19/2023 10:44 AM EDT Please make a hospital follow up appointment to be seen by Dr. Baig or Nurse practitioner in 6-8 weeks. Thank you, Delfino Hannah APRN.SUPPLY PERSON [facility] Work Phone: 1(623) 849-678804-29-2024 Miscellaneous Notes* Telephone Encounter - Delfino Hannah APRN.CNP - 06/19/2023 10:44 AM EDT Please make a hospital follow up appointment to be seen by Dr. Baig or Nurse practitioner in 6-8 weeks. Thank you, Delfino Hannah APRN.TELLY documented in this encounterDetwiler Memorial Hospital04-24-2024 History of Present illness Narrative* Kole [...] recent hospital admission. She demonstrated difficulty with dpq-ol-tuetht. The patient will continue to benefit from ongoing skilled physical therapy to progress toward set goals. PLAN FOR NEXT VISIT: Gross LE Strengthening; Endurance and Conditioning following hospital admission; take vitals throughout. SUBJECTIVE: Patient reports hospital admission at [facility] for cardiac issues/NSTEMI, also found with UTI and hypercalcemia. Was on Heparin in the hospital. Was admitted in [facility] since last 06/08/23. Physicians have since released her and stated to continue physical activity as able. States she is now on a protein diet. States taking BP today 138/83 this a.m. Pain: Pain Pain Level: 0 Post Treatment Pain Post Treatment Pain Level: 0 OBJECTIVE MEASURES WITH LEVEL OF FUNCTION: Decreased eccentric control down to chair from [id number]. Vitals BP: 157/106 (Initial.) Pulse: 87 SpO2: 98 % Additional Vitals: Yes Pre Assessment: BP Pre BP: 169/104 (84bpm. After Step-Ups.) Intra Assessment 1: BP Intra 1 Intra BP 1: 174/104 (After Jia-vv-Kbshds; ended session following.) Intra Assessment 2: BP Intra 2 Intra BP 2: 154/104 (BP before leaving.) TREATMENT: Therapeutic Exercise: 1: Warm Up on SCI-FIT: 6 Minutes (Vitals and Subjective Taken: Direct 1:1.) 2: 6 Fwd Stepups: 2x12 ea. leg. 3: 6 Lateral Stepups: 2x12 ea. 4: Chair Rdc-mm-xpgshu: 2x5. (Patient required assist from 2 UEs [...] 1155 Kole El PT documented in this encounterDetwiler Memorial Hospital04-18-2024 Miscellaneous Notes* Telephone Encounter - [...] and currently taking hydrocortisone, prescribed by in [place]. Today dealing with CP on right side [...] pressure 7. CARDIAC RISK FACTORS: Hx silent [place]. 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 : Post menopause. Protocols used: Chest Xqpg-JTJND-XJ documented in this encounterDetwiler Memorial Hospital04-18-2024 Telephone encounter Note * Telephone Encounter - Thelma Suarez LPN - 06/08/2023 11:03 AM EDT Message below given to daughter. Daughter reports pt is having chest pain and problems swallowing. RN to triage call further. Thelma Suarez LPN [facility]04-18-2024 Miscellaneous Notes* Telephone Encounter - Thelma [...] PM EDT ----- Message from Rocio Elizalde APRN.SUPPLY PERSON sent at 05/31/2023 12:58 PM EDT ----- Please call patient for home blood pressure readings documented in this encounterDetwiler Memorial Hospital04-18-2024 Telephone encounter Note * Telephone Encounter - Prachi Farrar MA - 06/08/2023 9:15 AM EDT Left message for return call. [facility]04-18-[facility] Telephone encounter Note* Telephone Encounter - Rocio Elizalde APRN.CNP - 06/08/2023 8:30 AM EDT She should continue with the midodrine until she sees Dr. Floyd on 06/29, I will send in a refill to get her through until this appointment Rocio Elizalde APRN.SUPPLY PERSON [facility]04-17-2024 Telephone encounter Note* Telephone Encounter - Prachi Farrar MA - 06/07/2023 6:24 PM EDT Patient states she is to have blood work in [address] Gregory in 4 weeks. No medicationchanges. [facility]04-17-2024 Telephone encounter Note* Telephone Encounter - Rocio Elizalde APRN.CNP - 06/07/2023 5:46 PM EDT BP looks better. Did she have follow-up with Dr. Gregory? Did he make any medication changes? /Rocio Elizalde APRN.CNP [facility]04-17-2024 Telephone encounter Note* Telephone Encounter - [...] standing 1120 am 150/76 pulse 110 standing [facility]04-17-2024 Telephone encounter Note* Telephone Encounter - Torsten Vora MA - 06/07/2023 2:42 PM EDT Left message to call office. 06/07/2023 2:42 PM [facility]04-17-2024 Telephone encounter Note* Telephone Encounter - Torsten Vora MA - 06/07/2023 2:37 PM EDT ----- Message from Rocio Elizalde APRN.CNP sent at 05/31/2023 12:58 PM EDT ----- Please call patient for home blood pressure readings [facility]04-10-2024 Miscellaneous Notes* Telephone Encounter - Kelley Rivera LPN - 05/31/2023 2:18 PM EDT [facility] infusion suite called asking for dx for INR. In review dx of DVT code was given per problem list. documented in this encounterDetw[facility]04[facility] History of Present illness Narrative* Rocio Elizalde APRN.CNP - 05/31/2023 1:01 PM EDT PT requesting orders Rocio Elizalde APRN.CNP documented in this encounterDetwiler [facility]04[facility] History of Present illness Narrative* Rocio Elizalde APRN.CNP - 05/31/2023 11:26 AM EDT CC: Patient presents with: Hospital F/U: High calcium HPI Linda Peralta is a 78 year old female who presents today for above. Patient was admitted to 05/23 to 05/25 for elevated calcium, weakness and hypotension. She had been treated for this a couple weeks prior at [facility] with Zometa infusion. Levels had initially improved but were high again on repeat outpatient labs. She has a history of idiopathic hypercalcemia. She was treated with Calcitonin during this admission which lowered ionized calcium from 1.53 to 1.32. Her extension service supervisor is Dr. Gregory at , she is scheduled for follow-up with him on 06/05. Her main concern today is weakness, lightheadedness and hypotension. She was taken off blood pressure medications by her director industrial museum due to hypotension, last dose was over two weeks ago. Checking her BP at home, fluctuates between 100's/60's to 130's/80's. She does feel lightheaded when her BP is low. Weakness has been an ongoing issue however she was starting to improve with PT until now. She has a history of Wharton's disease. Her Cortef dose was being titrated down by previous extension service supervisor due to bone loss which is also [...] eczema, due to unspecified cause 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Wharton's disease Cystocele, midline 07/23/2007 Diverticulosis of colon (without mention of hemorrhage) DVT (deep venous thrombosis) ([facility]) 03/23/2012 DVT of lower extremity (deep venous thrombosis) ([facility]) 03/27/2009 Esophageal reflux Gallstones 03/06/2016 Hypercalcemia 03/19/2009 Hypertension NSTEMI (non-ST elevated myocardial infarction) ([facility]) 04/27/2009 Cardiac cath normal Other [...] W/COLLJ SPEC WHEN PFRMD 03/26/2010 Inpatient at [facility] ESOPHAGOGASTRODUODENOSCOPY TRANSORAL DIAGNOSTIC 02/2002 EGD ESOPHAGOGASTRODUODENOSCOPY [...] dupilumab 300 mg/2 mL subcutaneous pen injector ([employer]) .[id number] fluticasone (FLONASE) 50 mcg/actuation nasal spray Use [...] Age of Onset Coronary Artery Disease Mother [place] at 87y.o. Hypertension Mother Stroke Father Coronary [...] ICD10: I95.89 (primary diagnosis) Suspect secondary to Wharton's and possibly decreased dose of Cortef. Discussed with patient's PCP,the following recommendations reviewed with patient and daughter: IV fluid bolus, will fax orders to [facility] as there is no availability within [facility]. Start Midodrine, see orders. Continue to maintain adequate hydration to include not only water but other liquids as well to avoid hemodilution. Continue to monitor BP at home, we will call her next week for readings Follow-up with extension service supervisor next week as scheduled Follow-up with PCP in one month 2. 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 Hypercalcemia - ICD9: 275.42, ICD10: E83.52 As above Prescription instructions reviewed with patient as applicable. Potential red flag symptoms discussed with the patient. Reviewed appropriate action plan to take if red flag symptoms occur. Patient agreeable to treatment plan. Rocio Elizalde APRN.SUPPLY PERSON documented in this encounterDetwiler [facility]04-[facility] History of Present illness Narrative* Kole El, PT - 05/31/2023 10:27 AM EDT Program_ID:[id number] Access Code: [email or web address] URL: [email or web address] Date: 05-31-2023 Prepared By: Kole El Program [...] of Care: created on 03/28/23 through 07/05/23 [place] in home exercise program.-- Met continue to [...] Patient to be seen for Therapeutic exercise (14938), Neuromuscular re-education (64354), Manual therapy (56717), Self-intermediate management (57695), Therapeutic activities (42916), Gait Training (26592), Patient/Family/Caregiver Education, General Conditioning PLAN FOR NEXT [...] program to facilitate proper performance and compliance. Self-Retirement Management: 1: *Longer discussion regarding recent decline [...] 1032 Kole El PT documented in this encounterDetwiler [facility]04-[facility]24 History of Present illness Narrative* Temitope [...] Unit/Bed: 1008/1008-A Date of : 1945 Acct: [id number] Admitting Diagnosis: Hypercalcemia [E83.52] Date: 05/24/2023 Hospital [...] disease (CMS/HCC) DVT (deep venous thrombosis) (CMS/HCC) Wharton's disease (CMS/HCC) Primary hypertension Pure hypercholesterolemia Urinary [...] for assistance if needed. * Raisa Frederick APRN-SUPPLY PERSON - 05/25/2023 10:11 AM EDT Daily Progress [...] note, this documentation is completed using the [employer] Dictation system (voice recognition software). There may [...] [place] the hospital on [place] [place] [facility]. dx: hypercalcemia. test/labs : calcium 11.1. [...] and LUE LUE: Within Functional Limits Outcome Measures:[facility] Daily Activity Putting on and taking [...] disease with stage 3b chronic kidney disease ([facility]/HCC) DVT (deep venous thrombosis) ([facility]/HCC) Wharton's disease ([facility]) Primary hypertension Pure hypercholesterolemia Urinary [...] came to the hospital on 05/23 from [facility]. dx: hypercalcemia. test/labs : calcium 11.1. [...] LLE : Within Functional Limits Outcome Measures: [facility] Basic Mobility Turning from your back [...] Comments No comments found. * Raisa Frederick, WAREHOUSE PACKER-SUPPLY PERSON - 05/24/2023 2:23 PM EDT Daily Progress Note Linda Peralta is a 78 y.o. female on day 1 of admission presenting with Hypercalcemia. Subjective Patient seen sitting up in the chair without any complaints. Patient was transferred from [facility] after found to have elevated ionized [...] muscular weakness History of donor nephrectomy History Wharton's disease HTN UTI GERD History of PE/DVT [...] note, this documentation is completed using the [employer] system (voice recognition software). There may be [...] be discharged to: Home Patient is from [place], is here d/t hypercalcemia and her provider [...] disease with stage 3b chronic kidney disease ([facility]) Wharton's disease ([facility]) Urinary tract infection, site not [...] continue LOS: 1 day documented in this [facility] Work Phone: 1(997) 622-888404-05-2024 Hospital course Narrative* NICOLE Wilkinson - 05/26/2023 [...] a significant past medical history of hypercalcemia, Wharton's disease, HTN, GERD, PE/DVT on warfarin presenting to [facility] from [place] ER after found to have elevated ionized calcium on routine lab work. Patient presented to [place] for IV fluids, UAreportedly showed evidence of [...] future appointments. NICOLE Wilkinson documented in this [facility] Work Phone: 1(190) 646-494404-04-2024 Hospital Note* Hospital Course - NICOLE Wilkinson - 05/25/2023 11:49 AM EDT Linda Peralta is a 78 y.o. female with a significant past medical history of hypercalcemia, Wharton's disease, HTN, GERD, PE/DVT on warfarin presenting to [facility] from [place] ER after found to have elevated ionized calcium on routine lab work. Patient presented to [place] for IV fluids, UAreportedly showed evidence of [...] On day of discharge patient hemodynamically stable. [facility] Work Phone: 1(164) 266-209204-04-2024 Miscellaneous Notes* Hospital Course - NICOLE Wilkinson - 05/25/2023 11:49 AM EDT Linda Peralta is a 78 y.o. female with a significant past medical history of hypercalcemia, Wharton's disease, HTN, GERD, PE/DVT on warfarin presenting to [facility] from [place] ER after found to have elevated ionized calcium on routine lab work. Patient presented to [place] for IV fluids, UAreportedly showed evidence of [...] discharge patient hemodynamically stable. documented [facility] this [facility] Work Phone: 1(540) 185-575604-04-2024 Hospital Discharge instructions* Discharge Instructions* NICOLE Wilkinson - 05/25/2023 11:45 AM EDT Thank you for choosing [facility]. It has been a pleasure taking part in your medical care. Please follow up with your primary care provider as instructed. If your symptoms should persist or worsen, please contact your primary care physician, or in the case of an emergency proceed to the nearest Emergency Room for further care. If you have any questions about the care you received, please call [facility] at . Thank you again! TELLY Kline documented in this [facility] Work Phone: 1(723) 360-397004-03-2024 Consult note* Alexander Gregory MD - 05/24/2023 [...] fluids and transferred her over to [facility]. Here she has been feeling well she has never felt any problems she has been completely asymptomatic throughout the whole episode She was treated in addition with IV fluids and started calcitonin. There is no cause yet determinedas to why she has the hypercalcemia As per admission Linda Peralta is a 78 y.o. female with a significant past medical history of hypercalcemia, Wharton's disease, HTN, GERD, PE/DVT on warfarin presenting to [facility] from [place] ER after found to have elevated ionized calcium on routine lab work. Patient presented to [place] for IV fluids, UAreportedly showed evidence of [...] and daughter at bedside Souleymane Lopez [POA] [phone]; patient has advanced directives - not available in the medical center, family encouraged to bring to [...] Colin Gregory MD FACE Office phone - [phone] Fax - [phone] Address: [address] [address] Address: [address] [facility] [address] 05/24/2023 9:13 PM [facility] Work Phone: 1(455) 812-941604-03-2024 Consult note* Alexander Gregory MD - 05/24/2023 [...] fluids and transferred her over to [facility]. Here she has been feeling well she has never felt any problems she has been completely asymptomatic throughout the whole episode She was treated in addition with IV fluids and started calcitonin. There is no cause yet determinedas to why she has the hypercalcemia As per admission Linda Peralta is a 78 y.o. female with a significant past medical history of hypercalcemia, Wharton's disease, HTN, GERD, PE/DVT on warfarin presenting to [facility] from [place] ER after found to have elevated ionized calcium on routine lab work. Patient presented to [place] for IV fluids, UAreportedly showed evidence of [...] and daughter at bedside Souleymane Lopez [POA] [phone]; patient has advanced directives - not available in [employer], family encouraged to bring to hospital or [...] Colin Gregory MD FACE Office phone - [phone] Fax - [phone] Address: [address] [place] [address] Address: [address] [place] [address] 05/24/2023 9:13 PM documented in this [facility] Work Phone: 1(560) 185-980204-03-2024 History and physical note* Shakria Antunez APRN-SUPPLY PERSON - 05/24/2023 2:11 AM EDT Medical Group History and Physical ASSESSMENT & PLAN: Hypercalcemia Hx donor nephrectomy Hx Wharton's disease - IVF 100ml/hr x1day; regular diet - tele x 1day d/t above dx - labs: PTH, ionized ca, vit D, CMP, CBC, lactate - Consult to Endocrine - known to Dr Gregory UTI symptom of increased frequency and urgency, no dysuria - Send UA - started on keflex 500 BID - from [place] ER - cont this admission - noted [...] upload POA - daughter - Souleymane Lopez [phone] VTE Prophylaxis: Resume warfarin Shakira Antunez APRN-SUPPLY PERSON HISTORY OF PRESENT ILLNESS: Chief Complaint: hypercalcemia History Of Present Illness: Linda Peralta is a 78 y.o. female with a significant past medical history of hypercalcemia, Wharton's disease, HTN, GERD, PE/DVT on warfarin presenting to [facility] from [place] ER after found to have elevated ionized calcium on routine lab work. Patient presented to [place] for IV fluids, UAreportedly showed evidence of [...] and daughter at bedside Souleymane Lopez [POA] [phone]; patient has advanced directives - not available in the medical center, family encouraged to bring to [...] IVF, labs ordered, Endo consult Adrenal hypofunction ([facility]) Overview Signed 05/24/2023 2:02 AM [...] [facility]), on florinef 0.1 mg [facility], prednisone 5 mg [facility]. (): admitted for loss of consciousness, orthostatic, [...] disease with stage 3b chronic kidney disease ([facility]) DVT (deep venous thrombosis) ([facility]) Overview Signed 05/24/2023 2:02 AM by NICOLE Ahmadi 2009 Wharton's disease ([facility]) Overview Signed 05/24/2023 2:02 AM by NICOLE [...] 24 hour(s)). Imaging: No orders to display [facility] Work Phone: 1(200) 387-804604-03-2024 History and physical note* NICOLE Ahmadi - 05/24/2023 2:11 AM EDT Medical Group History and Physical ASSESSMENT & PLAN: Hypercalcemia Hx donor nephrectomy Hx Wharton's disease - IVF 100ml/hr x1day; regular diet - tele x 1day d/t above dx - labs: PTH, ionized ca, vit D, CMP, CBC, lactate - Consult to Endocrine - known to Dr Gregory UTI symptom of increased frequency and urgency, no dysuria - Send UA - started on keflex 500 BID - from [place] ER - cont this admission - noted [...] upload POA - daughter - Souleymane Lopez [phone] VTE Prophylaxis: Resume warfarin Shakira Antunez, WAREHOUSE PACKER-SUPPLY PERSON HISTORY OF PRESENT ILLNESS: Chief Complaint: hypercalcemia History Of Present Illness: Linda Peralta is a 78 y.o. female with a significant past medical history of hypercalcemia, Wharton's disease, HTN, GERD, PE/DVT on warfarin presenting to [facility] from [place] ER after found to have elevated ionized calcium on routine lab work. Patient presented to [place] for IV fluids, UAreportedly showed evidence of [...] and daughter at bedside Souleymane Lopez [POA] [phone]; patient has advanced directives - not available in the medical center, family encouraged to bring to [...] IVF, labs ordered, Endo consult Adrenal hypofunction ([facility]/HCC) Overview Signed 05/24/2023 2:02 AM by NICOLE [...] disease with stage 3b chronic kidney disease ([facility]) DVT (deep venous thrombosis) ([facility]) Overview Signed 05/24/2023 2:02 AM by NICOLE Ahmadi 2009 Wharton's disease ([facility]) Overview Signed 05/24/2023 2:02 AM [...] No orders to display documented in this encounterMcC[facility] Work Phone: 1(783) 931-336104-02-2024 Telephone encounter Note* Telephone Encounter - Eliajh Freed MD - 05/23/2023 6:53 PM EDT Called by lab regarding patient's critical ionized calcium level of 1.69 which is up from 1.6 on 05/11. Noted patient was sent to the ER by her extension service supervisor with this lower reading on 05/11. Called patient who states that she does feel dizzy, mild confusion, muscle weakness, increased thirst. Recommended patient return to the ER for further workup and treatment. Patient will have her daughter drive her. Called and spoke with Dr Lott at [facility] ER and was given report. [facility] Work Phone: 1(682) 204-126404-02-2024 Miscellaneous Notes* Telephone Encounter - Elijah Freed MD - 05/23/2023 6:53 PM EDT Called by lab regarding patient's critical ionized calcium level of 1.69 which is up from 1.6 on 05/11. Noted patient was sent to the ER by her extension service supervisor with this lower reading on 05/11. Called patient who states that she does feel dizzy, mild confusion, muscle weakness, increased thirst. Recommended patient return to the ER for further workup and treatment. Patient will have her daughter drive her. Called and spoke with Dr Lott at [facility] ER and was given report. documented in this encounterDetw[facility]04-[facility]-2024 Discharge summary Author Ankush Noguera [facility] May 23, 2023 10:48pm Note Date/Time May 23, 2023 10:[address] [facility] Medical Records Department [address] [place] [address] Emergency Department Summary 05/23/23 MR#: [id number] Acct: [id number] Name: LINDA PERALTA Rep #:[id number] : 1945 78 From: Ankush Noguera DO PCP: Dr. Amos Floyd MD Status:R EG ER Location: ED HPI History of Present Illness Chief Complaint: Abn Labs Narrative Narrative: 78-year-old female with history of Wharton's disease who currently is treated byDr. Gregory from [facility] for this. Patient was seen about a [...] She does states she feels generally weak. [facility] Medical History Acute electrocardiogram changes Acute prerenal azotemia Wharton disease Aortic stenosis Atopic dermatitis Chronic kidney disease Chronic kidney disease, stage 3 Closed head injury (03/20/20) Cystocele with rectocele Elevated serum creatinine Essential (primary) hypertension Frequent falls History of DVT (deep vein thrombosis) History of kidney cancer History of non-ST elevation myocardial infarction (NSTEMI) (04/2009) History of pulmonary embolism Hypercalcemia Hyperlipidemia Hypoglycemia (03/20/20) Hypokalemia Hypotension [facility] (current) use of anticoagulants MVP (mitral valve [...] mg/mL subcutaneous syringe (Prolia) 60 mg subcut [id number] #1 mL 11/24/22 [Rx Last Taken Unknown] [...] Other History of DVT (deep vein thrombosis) [facility] (current) use of anticoagulants Surgical History H/O [...] safe at home: Yes additional social history: [place]- Retired patient is retired ROS ROS ED [...] felt she was [facility] at night that she got back to the emergency room today dueto the repeat lab work. He recommended admission for IV fluids and offered to have the patient admitted to [facility] versus here at [facility] however patient expressed her previous history of Dr. Vann from endocrinology was not good and she preferred to be transferred over to [place] where her extension service supervisor is for further testing and treatment. Currently awaiting follow-up call from the transfer line. She will need to be transferred but I believe she is stable for transfer via car and Dr. Gregory agreed but we are currently awaiting a bed assignment. Patient will be transferred when a bed is obtained. Impression: 1. Hypercalcemia 2. Generalized weakness 3. History of Wharton's disease Lab Data Labs: Laboratory Results - last 24 hr 05/23/23 20:30 WBC 9.5 RBC 5.07 Hgb 14.5 Hct 43.3 MCV 85.4 MCH 28.6 MCHC 33.5 RDW Std Deviation 44.1 H RDW Coeff of Slava 14.2 Plt Count 271 MPV 10.9 Immature Gran % (Auto) 0.900 Neut % (Auto) 59.7 Lymph % (Auto) 19.2 Sully % (Auto) 9.7 Eos % (Auto) 9.7 [...] 21:40 EDT Reading Location ID and State: [address] [place] [address] Tel , Service support , Discharge Plan [...] Prolia 60 mg/mL syringe 60 mg subcut [id number] Qty: 1 1RF amlodipine 2.5 mg tablet [...] your Primary Care Provider. Call [facility] ([phone]) or report to the closest Emergency Room. Call 911 if necessary. 05/23/232247 <Electronically signed by Ankush Noguera DO> Cosigner Signature (if applicable): CC: Dr. Amos Floyd MD ~ Signed [facility] Work Phone: 1(700) 550-957504-02-2024 History of Present illness Narrative* Rocio Elizalde, WAREHOUSE PACKER.SUPPLY PERSON - 05/23/2023 12:24 PM EDT CC: Patient presents with: ED Follow-up: [facility] ER HPI Linda Peralta is a 78 year old female who presents today with her daughter for above. Patient hadlab work ordered by her extension service supervisor Dr. Gregory on 05/14 which revealed critically high Calcium/ionized calcium. She was instructed to go to the ER immediately that day for treatment. She was treated at [facility] ER with IV fluids and Zometa [...] eczema, due to unspecified cause 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Wharton's disease Cystocele, midline 07/23/2007 Diverticulosis of colon (without mention of hemorrhage) DVT (deep venous thrombosis) ([facility]) 03/23/2012 DVT of lower extremity (deep venous thrombosis) ([facility]) 03/27/2009 Esophageal reflux Gallstones 03/06/2016 Hypercalcemia 03/19/2009 Hypertension NSTEMI (non-ST elevated myocardial infarction) ([facility]) 04/27/2009 Cardiac cath normal Other [...] W/COLLJ SPEC WHEN PFRMD 03/26/2010 Inpatient at [facility] ESOPHAGOGASTRODUODENOSCOPY TRANSORAL DIAGNOSTIC 02/2002 EGD ESOPHAGOGASTRODUODENOSCOPY [...] dupilumab 300 mg/2 mL subcutaneous pen injector ([employer]) .[id number] meclizine (ANTIVERT) 25 mg tab Take 1 [...] Age of Onset Coronary Artery Disease Mother [place] at 87y.o. Hypertension Mother Stroke Father Coronary [...] REVIEWED: Most recent labs Outside chart from [facility] ER reviewed. ASSESSMENT/PLAN: 1. Hypercalcemia - [...] Patient agreeable to treatment plan. Rocio Elizalde APRN.SUPPLY PERSON documented in this encounterDetwiler [facility] Hospital04-02-2024 Miscellaneous Notes* Telephone Encounter - Carlos Roe RN - 05/23/2023 11:37 AM EDT Pt calling in again regarding below. Scheduled ER f/u visit for today at 1220 with Rocio Elizalde. * Telephone Encounter - Milagros Burton LPN - 05/22/2023 8:49 AM EDT Patient calling with question she was in [facility] ER on 05/14. She was dehydrated and low blood pressure.She said her calcium level was elevated, she was given IV medication to lower the calcium. Patient asking if she should do more lab work to recheck her calcium level? Please advise documented in this encounterDet[facility]04-[facility]-2024 Miscellaneous Notes* Telephone Encounter - Carlos Roe RN - 05/23/2023 10:42 AM EDT Pt calling in again about repeating labs and concerns. ER f/u appt given for today with Rocio Elizalde at 1220 pm. documented in this encounterDetwiler [facility] Hospital03-25-2024 Discharge summary Author Juan Alberto Mcclendon [facility] May 15, 2023 8:38pm Note Date/Time May 15, 2023 3:1 7pm [facility] Medical Records Department [address] [place] [address] Emergency Department Summary 05/15/23 MR#: [id number] Acct: [id number] Name: LINDA PERALTA Rep #:[id number] : 1945 78 From: Juan Alberto Mcclendon MD PCP: Dr. Amos Floyd MD Status:R EG ER Location: ED HPI History of Present Illness Chief Complaint: Abn Labs Informant: patient and family (daughter) Narrative Narrative: Patient sent in by her extension service supervisor Dr. Gregory at for high calcium level [...] because of her abnormal labs. She has Wharton's syndrome, she is on daily hydrocortisone 20 [...] partly which led to the diagnosis of Wharton's disease, however here in triage her blood pressure 68/51. [facility] Medical History Acute electrocardiogram changes Acute prerenal azotemia Wharton disease Aortic stenosis Atopic dermatitis Chronic kidney disease Chronic kidney disease, stage 3 Closed head injury (03/20/20) Cystocele with rectocele Elevated serum creatinine Essential (primary) hypertension Frequent falls History of DVT (deep vein thrombosis) History of kidney cancer History of non-ST elevation myocardial infarction (NSTEMI) (04/2009) History of pulmonary embolism Hypercalcemia Hyperlipidemia Hypoglycemia (03/20/20) Hypokalemia Hypotension [facility] (current) use of anticoagulants MVP (mitral valve [...] mg/mL subcutaneous syringe (Prolia) 60 mg subcut [id number] #1 mL 11/24/22 [Rx Last Taken Unknown] [...] Allergy Rash Verified 05/15/23 14:45 Family History (Reviewed 03/03/23 @ 09:07 by Ryan Ji E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, E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) Father CVA (cerebral vascular accident) Mother Myocardial infarction, Onset Age: 87 Other History of DVT (deep vein thrombosis) 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 (current) use of anticoagulants Surgical History (Reviewed 03/03/23 @ 09:07 by Ryan Ji E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, E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) H/O partial nephrectomy (2009) H/O total cystectomy [...] safe at home: Yes additional social history: [place]- Retired patient is retired ROS ROS ED [...] a liter of IV fluids, per the extension service supervisor's recommendation, and it was also told to me that we should also consider Zometa versus calcitonin. After receiving the labs back, I will call the extension service supervisor prior to administering any of these medications. [...] as well. Called to discuss with her extension service supervisor Dr. Gregory, discussed with his PA who [...] (Auto) 65.8 Lymph % (Auto) 15.8 L Sully % (Auto) 10.7 H Eos % (Auto) [...] EDT , Management Discussion w/another healthcare provider: [employer] (Endocrine ) Discharge Plan Triage Chief Complaint: Abn Labs ED Provider: Juan Alberto Mcclendon Dx/Rx/DC Orders Clinical Impression: Hypercalcemia, Wharton disease, Transient hypotension Instructions: Hypercalcemia Dc Prescriptions: [...] Prolia 60 mg/mL syringe 60 mg subcut [id number] Qty: 1 1RF amlodipine 2.5 mg tablet [...] your Primary Care Provider. Call [facility] ([phone]) or report to the closest Emergency Room. Call 911 if necessary. 05/15/232037 <Electronically signed by Juan Alberto Mcclendon MD> Cosigner Signature (if applicable): CC: Dr. Amos Floyd MD ~ Signed [facility] Work Phone: [phone] 677-820203-25-2024 Miscellaneous Notes* Telephone Encounter - Amos Floyd MD - 05/15/2023 3:38 PM EDT Noted. * Telephone Encounter - Ama Diaz RN - 05/15/2023 1:22 PM EDT Pts daughter Souleymane called in and reports her mothers Chief Of Hospital Medicine Dr Gregory from [facility] called and told her mother to go to the ER. He said her Calcium was critically high, and she needs hydration, Zometa, and Calcitonin. Pt will be going to [facility]. documented in this encounterDetwiler [facility] Hospital03-19-2024 History of Present illness Narrative* José Shi, PT, DPT - 05/09/2023 8:58 AM EDT Program_ID:[id number] Access Code: [email or web address] URL: [email or web address] Date: 05-09-2023 Prepared By: Kole El Program Notes Exercises - Supine Bridge with Mini Scottish Ball Between Knees - 2 x daily [...] José Shi PT, DPT documented in this encounterDetwiler Memorial Hospital03-12-2024 History of Present illness Narrative* José Shi PT, DPT - 05/02/2023 8:55 AM EDT Program_ID:[id number] Access Code: [email or web address] URL: [email or web address] Date: 05-02-2023 Prepared By: Kole El Program Notes Exercises - Supine Bridge with Mini Scottish Ball Between Knees - 2 x daily [...] of Care: created on 03/28/23 through 05/30/23 [place] in home exercise program.-- Met continue to [...] Patient to be seen for Therapeutic exercise (05266), Neuromuscular re-education (49863), Manual therapy (56740), Self-intermediate management (53997), Therapeutic activities (40065), Gait Training (32064), Patient/Family/Caregiver Education PLAN FOR NEXT VISIT: Assess [...] José Shi PT, DPT documented in this encounterDetwiler Memorial Hospital02-20-2024 History of Present illness Narrative* Kole [...] Clamshells: 2x12 ea., PinkTb. 3: Bridges: 2x12, Justin TB 4: Supine SLR: 2x6, 2#cuff. 5: [...] 1111 Kole El PT documented in this encounterDetwiler Memorial Hospital02-12-2024 History of Present illness Narrative* Kole El PT - 04/03/2023 10:57 AM EST Program_ID:[id number] Access Code: [email or web address] URL: [email or web address] Date: 04-03-2023 Prepared By: Kole El Program [...] 1100 Kole El PT documented in this encounterDetwiler Memorial Hospital02-06-2024 History of Present illness Narrative* Kole El PT - 03/28/2023 9:04 AM EST Program_ID:[id number] Access Code: [email or web address] URL: [email or web address] Date: 03-28-2023 Prepared By: Kole El Program [...] of Care: created on 03/28/23 through 05/09/23 [place] in home exercise program. Patient will decrease [...] Planned: 6 Planned Treatment Interventions: Therapeutic exercise (55059), Neuromuscular re- education (86215), Manual therapy (41131), Self-intermediate management (69401), Therapeutic activities (90170), Gait Training (49406), Patient/Family/Caregiver Education PLAN FOR NEXT VISIT: Assess [...] Mechanics TREATMENT: PT Treatment Interventions: Therapeutic Exercise, Self-Retirement Management Evaluation Therapeutic Exercise: 1: *S/L Hip [...] facilitated with verbal, visual, and tactile cuing. Self-Retirement Management: 1: Extended time spent rationalizing and [...] 904 Kole El, PT documented in this encounterDetwiler Memorial Hospital02-02-2024 Miscellaneous Notes* Telephone Encounter - Jaquelin Mcgraw Ma - 03/24/2023 11:33 AM EST Patient called in and message from Dr. Cruz given. She verbalized understanding. documented in this encounterDetwiler Memorial Hospital11-30-2023 History of Present illness Narrative* Amos Floyd MD - 01/19/2023 1:31 PM EST This note was created using Metago. Subjective Linda Peralta is a 77 year [...] General Cardiology-Dr. Marte Nephrology- Dr. Jennifer Tarango Camp Maintenance Supervisor- Dr. Carpio Endocrinology- Dr. Torsten Vann (osteoporosis), [...] Personalized prevention plan provided documented in this encounterDetwiler Memorial Hospital11-29-2023 History of Present illness Narrative* Amy [...] 18, 2023 10:53 AM documented in this encounterDetwiler Memorial Hospital10-30-2023 History of Present illness Narrative* Omar [...] 5.3 4.3 - 5.6 % Final Comment: Stateless Diabetes Association guidelines indicate that patients with [...] mention of hemorrhage) DVT (deep venous thrombosis) ([facility]) 03/23/2012 DVT of lower extremity (deep venous thrombosis) ([facility]) 03/27/09 Esophageal reflux Gallstones 03/06/2016 Hypercalcemia 03/19/2009 Hypertension NSTEMI (non-ST elevated myocardial infarction) ([facility]) April 27, 2009 Cardiac cath [...] W/COLLJ SPEC WHEN PFRMD 03/26/2010 Inpatient at [facility] ESOPHAGOGASTRODUODENOSCOPY TRANSORAL DIAGNOSTIC 02/2002 EGD ESOPHAGOGASTRODUODENOSCOPY [...] Up Julieta Avendano LPN documented in this encounterDetwiler Memorial Hospital10-30-2023 Instructions* Patient Instructions* Omar Cruz - 12/19/2022 12:24 PM EDT Powerstep Original Full length. Can purchase at [employer] here in [place], [employer] in [place] or [place]. Also can find in [place] in [facility]. Powersteps can also be purchased online, [...] everything fits well together documented in this encounterDetwiler Memorial Hospital10-13-2023 Miscellaneous Notes* Telephone Encounter - Kelley [...] notify patient. Kylah mcdermott documented in this encounterDetwiler Memorial Hospital10-12-2023 History of Present illness Narrative* Marguerite [...] 01, 2022 11:40 AM documented in this encounterDetwiler Memorial Hospital09-19-2023 History of Present illness Narrative* Jacinda Enriquez APRN.SUPPLY PERSON - 11/08/2022 10:59 AM EDT This note was created using Clickpassriter. Subjective Linda Peralta is a 77 year [...] history is provided by the patient. No choke setter was used. Pain (foot) Pain location: right [...] eczema, due to unspecified cause 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Wharton's disease Cystocele, midline 07/23/2007 Diverticulosis of colon (without mention of hemorrhage) DVT (deep venous thrombosis) ([facility]) 03/23/2012 DVT of lower extremity (deep venous thrombosis) ([facility]) 03/27/09 Esophageal reflux Gallstones 03/06/2016 Hypercalcemia 03/19/2009 Hypertension NSTEMI (non-ST elevated myocardial infarction) ([facility]) April 27, 2009 Cardiac cath [...] W/COLLJ SPEC WHEN PFRMD 03/26/2010 Inpatient at [facility] ESOPHAGOGASTRODUODENOSCOPY TRANSORAL DIAGNOSTIC 02/2002 EGD ESOPHAGOGASTRODUODENOSCOPY [...] Age of Onset Coronary Artery Disease Mother [place] at 87y.o. Hypertension Mother Stroke Father Coronary [...] made at time of exam. Jacinda Enriquez APRN.SUPPLY PERSON documented in this encounterDetwiler Memorial Hospital09-12-2023 History of Present illness Narrative* Kole [...] of Care: created on 11/01/22 through 01/01/23 [place] in home exercise program. Patient will decrease [...] Planned: 8 Planned Treatment Interventions: Therapeutic exercise (68567), Neuromuscular re- education (50119), Manual therapy (50888), Self-intermediate management (70334), Therapeutic activities (73287), Gait Training (36122), Patient/Family/Caregiver Education PLAN FOR NEXT VISIT: Muscle [...] PT Treatment Interventions: Therapeutic Exercise, Manual Therapy, Self-Retirement Management Evaluation Therapeutic Exercise: 1: Supine Hip [...] Quads: Push to tolerance. 3: Manual [place] L Hip Distraction: Pull to patient tolerance. Skilled Intervention: Manual skills to improve joint mobility, ROM, and decrease pain. Utilized anatomy knowledge of the therapist, and assessment of patient's response to intervention. Self-Retirement Management: 1: Education on anatomy & physiology [...] 09 Kole El PT documented in this encounterDetwiler Memorial Hospital09-06-2023 History of Present illness Narrative* Marguerite [...] 26, 2022 2:40 PM documented in this encounterDetwiler Memorial Hospital09-06-2023 History of Present illness Narrative* Amos [...] HIGH-DOSE) Amos Floyd MD documented in this encounterDetwiler Memorial Hospital07-31-2023 Miscellaneous Notes* Telephone Encounter - Carla Howard RN - 09/19/2022 4:06 PM EDT [facility] 05/25/2022 * Telephone Encounter - Edda [...] notify patient. Edda Loya documented in this encounterDetwiler Memorial Hospital06-07-2023 Miscellaneous Notes* Telephone Encounter - Sharon Pierre RN - 07/27/2022 2:31 PM EDT Returned call to [facility]- ICD code provided (L20.81) * Telephone Encounter - Faye Sung [facility] - 07/27/2022 1:27 PM EDT Specialty Pharmacy phoned requesting a ICD9 Code for ADBRY medication Please advise pharmacy using ref #[id number] documented in this encounterDetwiler Memorial Hospital06-02-2023 Miscellaneous Notes* Telephone Encounter - Sharon Pierre RN - 07/22/2022 1:07 PM EDT [facility] 05/2022 * Telephone Encounter - Vashti Avendano [facility] - 07/22/2022 10:20 AM EDT [facility] specialty pharmacy called and stated that they need a new script for the ADBRY sent to them. Please call [phone] or escribe fax at [phone] documented in this encounterDetwiler Memorial Hospital05-31-2023 History of Present illness Narrative* Rocio Johnson APRN.SUPPLY PERSON - 07/20/2022 10:03 AM EDT CC: Patient presents with: F/U 6 months HPI Linda Peralta is a 77 year old female who presents today for above. HTN/ASHD-[place] [facility]. Next follow-up in one week. 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 Managed by endocrinology. Prolia injections every 6 months. Atopic neurodermatitis- managed by F marine steamfitter. Not responsive to current treatments. Startedon new medication called Manuel however her pharmacy has not received this yet. VTE- lifelong anticoagulation with Coumadin. INR's managed by director industrial museum. REVIEW OF SYSTEMS See HPI PAST MEDICAL HISTORY Diagnosis Date Anemia 08/26/2009 ASHD (arteriosclerotic heart disease) 04/25/2009 Asthma Benign neoplasm of colon 04/26/2005 Tubular adenoma Chronic diarrhea 03/15/2010 Chronic sphenoidal sinusitis 09/15/2003 Collagenous colitis 03/30/2010 Contact dermatitis and other eczema, due to unspecified cause 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Wharton's disease Cystocele, midline 07/23/2007 Diverticulosis of colon (without mention of hemorrhage) DVT (deep venous thrombosis) ([facility]) 03/23/2012 DVT of lower extremity (deep venous thrombosis) ([facility]) 03/27/09 Esophageal reflux Gallstones 03/06/2016 Hypercalcemia 03/19/2009 Hypertension NSTEMI (non-ST elevated myocardial infarction) ([facility]) April 27, 2009 Cardiac cath [...] W/COLLJ SPEC WHEN PFRMD 03/26/2010 Inpatient at [facility] ESOPHAGOGASTRODUODENOSCOPY TRANSORAL DIAGNOSTIC 02/2002 EGD ESOPHAGOGASTRODUODENOSCOPY [...] Age of Onset Coronary Artery Disease Mother [place] at 87y.o. Hypertension Mother Stroke Father Coronary [...] patient asymptomatic at this time. Recommend calling director industrial museum office if continues - Continue current medication(s) [...] plan. Rocio Johnson APRN.CNP documented in this encounterDetwiler Memorial Hospital04-05-2023 History of Present illness Narrative* Ryan [...] Past Histories independently gathered by the clinical system support analyst. documented in this encounterDetwiler Memorial Hospital01-25-2023 Miscellaneous Notes* Telephone Encounter - Sharon Pierre RN - 03/16/2022 9:52 AM EST Received fax from [facility]- Prior authorization approval for Opzelura 1.5% cream. This authorization is good until 02/19/2023. Pharmacy notified. * Telephone Encounter - Sharon Pierre RN - 03/15/2022 2:16 PM EST Prior authorization requested for Opzelura 1.5% cream via [facility]. Will await determination documented in this encounterDetwiler Memorial Hospital01-23-2023 Miscellaneous Notes* Telephone Encounter - Donald James RPh - 03/14/2022 1:[address] Gale, This was sent to our pharmacy, however this is something we do not service. Please sign this order to have it sent to patient's preferred pharmacy. Thank you Donald James, PharmD Clinical Pharmacist, Oncology [facility] P: ; F: Pool: P [facility] Pool #: [id number] documented in this encounterDetwiler Memorial Hospital01-04-2023 History of Present illness Narrative* Ryan [...] Past Histories independently gathered by the clinical system support analyst. documented in this encounterDetwiler Memorial Hospital10-31-2022 Instructions* Patient Instructions* Rocio Johnson APRN.CNP - 12/20/2021 9:17 AM EDT Please call the office after your follow-up with director industrial museum in January for an update on your blood pressure and if any medication changes were made documented in this encounterDetwiler Memorial Hospital10-31-2022 History of Present illness Narrative* Rocio [...] mention of hemorrhage) DVT (deep venous thrombosis) ([facility]) 03/23/2012 DVT of lower extremity (deep venous thrombosis) ([facility]) 03/27/09 Esophageal reflux Gallstones 03/06/2016 [...] W/COLLJ SPEC WHEN PFRMD 03/26/2010 Inpatient at [facility] ESOPHAGOGASTRODUODENOSCOPY TRANSORAL DIAGNOSTIC 02/2002 EGD ESOPHAGOGASTRODUODENOSCOPY [...] Age of Onset Coronary Artery Disease Mother [place] at 87y.o. Hypertension Mother Stroke Father Coronary [...] seen: Cardiology-Dr. Marte Nephrology- Dr. Jennifer Tarango Camp Maintenance Supervisor- Dr. Carpio Endocrinology- Dr. Torsten Vann (osteoporosis), [...] at this time. - Patient was counseled [id number] by myself (the billing provider) for the [...] YR Rocio Johnson APRN.CNP documented in this encounterDetwiler Memorial Hospital10-19-2022 Miscellaneous Notes* Letter - Mammography Coordinator - 12/08/2021 2:02 PM EDT December 08, 2021 PID: [id number] Linda Peralta [address] [place] [address] Dear Ms. Peralta, We are pleased to [...] report will be kept on [facility] at [facility] as part of your permanent medical record and are available for your continuing care. Thank you for allowing us to help in meeting your health care needs. Sincerely, Dr. Madden Interpreting Radiologist [facility] (Normal over 40) documented in this encounterDetwiler Memorial Hospital10-19-2022 History of Present illness Narrative* Echo [...] DATA: Not applicable SIGNED BY: Echo Light [employer] December 08, 2021 12:55 PM documented in this encounterDetwiler Memorial Hospital10-17-2022 History of Present illness Narrative* Amos Floyd MD - 12/06/2021 3:07 PM EDT This note was created using Clickpassriter. Subjective Linda Peralta is a 76 year [...] breast - ICD9: V76.12, ICD10: Z12.31 - [facility] SCREENING Amos Floyd MD documented in this encounterDetwiler Memorial Hospital10-13-2022 Miscellaneous Notes* Telephone Encounter - Gifty [...] requesting refills as follows: last 07/20/21 , [facility] follow up 12/06/21 and medicare wellness 12/20/21 Requested Prescriptions Pending Prescriptions Disp Refills simvastatin (ZOCOR) 20 mg tablet 90 tablet 3 Sig: Take 1 tablet by mouth daily at bedtime. Please review and advise. Va Harris documented in this encounterDetwiler Memorial Hospital10-06-2022 Instructions* Patient Instructions* Ryan Gale MD [...] CeraVe moisturizer as well. documented in this encounterDetwiler Memorial Hospital10-06-2022 History of Present illness Narrative* Ryan [...] daily. dupilumab 300 mg/2 mL subcutaneous syringe ([employer]) Inject 300 mg SQ every 2 weeks [...] and Past Histories independentlygathered by the clinical system support analyst and the remaining scribed note accurately describes my personal service to the patient. Signature: Ryan Gale Date: 11/25/2021 Time: 10:54 PM documented in this encounterDetwiler Memorial Hospital09-08-2022 History of Present illness Narrative* Luciana Zuniga RN - 10/28/2021 3:04 PM EDT [facility] Enrollment Provider Action/FYI: lvm x 1 and MC Patient referred by: PCC/PCP referral Contact made with patient: No - Left Message: Hi my name is Luciana Zuniga RN and I am calling from the [facility] on behalf of your PCP, Amos Floyd MD. We are excited to share with you a new program to help you manage your health. Please call me back at [phone] between the hours of 8am-5pm Monday-Monday. You will receive another phone call from me within the next two businessdays. I hope you can take the time to speak with me. (Keep encounter open and attempt 2nd outreachin two business days from today) END OUTREACH documented in this encounterDetwiler Memorial Hospital08-25-2022 Miscellaneous Notes* Telephone Encounter - Milagros [...] return to express care. documented in this encounterDetwiler Memorial Hospital08-24-2022 History of Present illness Narrative* Irene [...] eczema, due to unspecified cause 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Wharton's disease Cystocele, midline 07/23/2007 Diverticulosis of colon (without mention of hemorrhage) DVT (deep venous thrombosis) ([facility]) 03/23/2012 DVT of lower extremity (deep venous thrombosis) ([facility]) 03/27/09 Esophageal reflux Gallstones 03/06/2016 Hypercalcemia 03/19/2009 Hypertension NSTEMI (non-ST elevated myocardial infarction) ([facility]) April 27, 2009 Cardiac cath [...] W/COLLJ SPEC WHEN PFRMD 03/26/2010 Inpatient at [facility] ESOPHAGOGASTRODUODENOSCOPY TRANSORAL DIAGNOSTIC 02/2002 EGD ESOPHAGOGASTRODUODENOSCOPY [...] Age of Onset Coronary Artery Disease Mother [place] at 87y.o. Hypertension Mother Stroke Father Coronary [...] illness Irene Mendenhall APRN.CNP documented in this encounterDetwiler Memorial Hospital08-24-2022 Instructions* Patient Instructions* Irene Mendenhall APRN.CNP [...] Discussed expected course of illness Irene Mendenhall APRN.SUPPLY PERSON Beginning Home Isolation Isolation is used to [...] to your local emergency facility: Notify the gate shear operator that you are seeking care for [...] or concerning to you. documented in this encounterDetwiler Memorial Hospital07-06-2022 Instructions* Patient Instructions* Nevin Lee PA-C - 08/25/2021 1:44 PM EDT Images from the original note were not included. documented in this encounterDetwiler Memorial Hospital07-06-2022 History of Present illness Narrative* Nevin [...] Past Histories independently gathered by the clinical system support analyst. Nevin Lee MS, RHIANNONC documented in this encounterDetwiler Memorial Hospital05-31-2022 History of Present illness Narrative* Amos Floyd MD - 07/20/2021 9:15 AM EDT This note was created using Clickpassriter. Subjective Linda Peralta is a 76 year [...] daily. dupilumab 300 mg/2 mL subcutaneous syringe ([employer]) Inject 300 mg SQ every 2 weeks [...] TOP) Amos Floyd MD documented in this encounterDetwiler Memorial Hospital01-19-2017 History of Past illness Narrative* Problem [...] heparin, ASA, plavix 300, atorvastatin - plan [facility] tomorrow. Hypokalemia 04/09/2009 05/14/2009 Overview: -Replete. [...] of this encounter (statuses as of 07/20/2021) [facility]01-[facility] History of Past illness Narrative* Problem [...] heparin, ASA, plavix 300, atorvastatin - plan [facility] tomorrow. Hypokalemia 04/09/2009 05/14/2009 Overview: -Replete. [...] of this encounter (statuses as of 08/25/2021) [facility]01-[facility]-2017 History of Past illness Narrative* Problem [...] heparin, ASA, plavix 300, atorvastatin - plan [facility] tomorrow. Hypokalemia 04/09/2009 05/14/2009 Overview: -Replete. [...] of this encounter (statuses as of 10/13/2021) [facility]01-[facility] History of Past illness Narrative* Problem [...] heparin, ASA, plavix 300, atorvastatin - plan [facility] tomorrow. Hypokalemia 04/09/2009 05/14/2009 Overview: -Replete. [...] of this encounter (statuses as of 10/14/2021) [facility]01-[facility] History of Past illness Narrative* Problem [...] heparin, ASA, plavix 300, atorvastatin - plan [facility] tomorrow. Hypokalemia 04/09/2009 05/14/2009 Overview: -Replete. [...] of this encounter (statuses as of 10/28/2021) [facility]01[facility] History of Past illness Narrative* Problem [...] heparin, ASA, plavix 300, atorvastatin - plan [facility] tomorrow. Hypokalemia 04/09/2009 05/14/2009 Overview: -Replete. [...] of this encounter (statuses as of 11/26/2021) [facility]01[facility] History of Past illness Narrative* Problem [...] heparin, ASA, plavix 300, atorvastatin - plan [facility] tomorrow. Hypokalemia 04/09/2009 05/14/2009 Overview: -Replete. [...] of this encounter (statuses as of 12/03/2021) [facility]01[facility] History of Past illness Narrative* Problem [...] heparin, ASA, plavix 300, atorvastatin - plan [facility] tomorrow. Hypokalemia 04/09/2009 05/14/2009 Overview: -Replete. [...] of this encounter (statuses as of 12/06/2021) [facility] History of Past illness Narrative* Problem [...] heparin, ASA, plavix 300, atorvastatin - plan [facility] tomorrow. Hypokalemia 04/09/2009 05/14/2009 Overview: -Replete. [...] of this encounter (statuses as of 12/09/2021) [facility] History of Past illness Narrative* Problem [...] heparin, ASA, plavix 300, atorvastatin - plan [facility] tomorrow. Hypokalemia 04/09/2009 05/14/2009 Overview: -Replete. [...] of this encounter (statuses as of 12/10/2021) [facility] History of Past illness Narrative* Problem [...] heparin, ASA, plavix 300, atorvastatin - plan [facility] tomorrow. Hypokalemia 04/09/2009 05/14/2009 Overview: -Replete. [...] of this encounter (statuses as of 12/20/2021) [facility] History of Past illness Narrative* Problem [...] heparin, ASA, plavix 300, atorvastatin - plan [facility] tomorrow. Hypokalemia 04/09/2009 05/14/2009 Overview: -Replete. [...] of this encounter (statuses as of 02/25/2022) [facility] History of Past illness Narrative* Problem [...] heparin, ASA, plavix 300, atorvastatin - plan [facility] tomorrow. Hypokalemia 04/09/2009 05/14/2009 Overview: -Replete. [...] of this encounter (statuses as of 03/15/2022) [facility] History of Past illness Narrative* Problem [...] heparin, ASA, plavix 300, atorvastatin - plan [facility] tomorrow. Hypokalemia 04/09/2009 05/14/2009 Overview: -Replete. [...] of this encounter (statuses as of 03/16/2022) [facility] History of Past illness Narrative* Problem [...] heparin, ASA, plavix 300, atorvastatin - plan [facility] tomorrow. Hypokalemia 04/09/2009 05/14/2009 Overview: -Replete. [...] of this encounter (statuses as of 06/06/2022) [facility] History of Past illness Narrative* Problem [...] heparin, ASA, plavix 300, atorvastatin - plan [facility] tomorrow. Hypokalemia 04/09/2009 05/14/2009 Overview: -Replete. [...] of this encounter (statuses as of 07/20/2022) [facility] History of Past illness Narrative* Problem [...] heparin, ASA, plavix 300, atorvastatin - plan [facility] tomorrow. Hypokalemia 04/09/2009 05/14/2009 Overview: -Replete. [...] of this encounter (statuses as of 07/23/2022) [facility] History of Past illness Narrative* Problem [...] heparin, ASA, plavix 300, atorvastatin - plan [facility] tomorrow. Hypokalemia 04/09/2009 05/14/2009 Overview: -Replete. [...] of this encounter (statuses as of 07/27/2022) [facility] History of Past illness Narrative* Problem [...] heparin, ASA, plavix 300, atorvastatin - plan [facility] tomorrow. Hypokalemia 04/09/2009 05/14/2009 Overview: -Replete. [...] of this encounter (statuses as of 09/20/2022) [facility] History of Past illness Narrative* Problem [...] heparin, ASA, plavix 300, atorvastatin - plan [facility] tomorrow. Hypokalemia 04/09/2009 05/14/2009 Overview: -Replete. [...] of this encounter (statuses as of 10/27/2022) [facility] History of Past illness Narrative* Problem [...] heparin, ASA, plavix 300, atorvastatin - plan [facility] tomorrow. Hypokalemia 04/09/2009 05/14/2009 Overview: -Replete. [...] of this encounter (statuses as of 11/01/2022) [facility] History of Past illness Narrative* Problem [...] heparin, ASA, plavix 300, atorvastatin - plan [facility] tomorrow. Hypokalemia 04/09/2009 05/14/2009 Overview: -Replete. [...] of this encounter (statuses as of 11/08/2022) [facility] History of Past illness Narrative* Problem [...] heparin, ASA, plavix 300, atorvastatin - plan [facility] tomorrow. Hypokalemia 04/09/2009 05/14/2009 Overview: -Replete. [...] of this encounter (statuses as of 12/02/2022) [facility] History of Past illness Narrative* Problem [...] heparin, ASA, plavix 300, atorvastatin - plan [facility] tomorrow. Hypokalemia 04/09/2009 05/14/2009 Overview: -Replete. [...] of this encounter (statuses as of 12/19/2022) [facility] History of Past illness Narrative* Problem [...] heparin, ASA, plavix 300, atorvastatin - plan [facility] tomorrow. Hypokalemia 04/09/2009 05/14/2009 Overview: -Replete. [...] of this encounter (statuses as of 12/25/2022) [facility] History of Past illness Narrative* Problem [...] heparin, ASA, plavix 300, atorvastatin - plan [facility] tomorrow. Hypokalemia 04/09/2009 05/14/2009 Overview: -Replete. [...] of this encounter (statuses as of 01/19/2023) [facility] History of Past illness Narrative* Problem [...] heparin, ASA, plavix 300, atorvastatin - plan [facility] tomorrow. Hypokalemia 04/09/2009 05/14/2009 Overview: -Replete. [...] of this encounter (statuses as of 01/19/2023) [facility] History of Past illness Narrative* Problem [...] heparin, ASA, plavix 300, atorvastatin - plan [facility] tomorrow. Hypokalemia 04/09/2009 05/14/2009 Overview: -Replete. [...] of this encounter (statuses as of 03/24/2023) [facility] History of Past illness Narrative* Problem [...] heparin, ASA, plavix 300, atorvastatin - plan [facility] tomorrow. Hypokalemia 04/09/2009 05/14/2009 Overview: -Replete. [...] of this encounter (statuses as of 03/28/2023) [facility] History of Past illness Narrative* Problem [...] heparin, ASA, plavix 300, atorvastatin - plan [facility] tomorrow. Hypokalemia 04/09/2009 05/14/2009 Overview: -Replete. [...] of this encounter (statuses as of 04/03/2023) [facility] History of Past illness Narrative* Problem [...] heparin, ASA, plavix 300, atorvastatin - plan [facility] tomorrow. Hypokalemia 04/09/2009 05/14/2009 Overview: -Replete. [...] of this encounter (statuses as of 04/11/2023) [facility] History of Past illness Narrative* Problem [...] heparin, ASA, plavix 300, atorvastatin - plan [facility] tomorrow. Hypokalemia 04/09/2009 05/14/2009 Overview: -Replete. [...] of this encounter (statuses as of 05/02/2023) [facility] History of Past illness Narrative* Problem [...] heparin, ASA, plavix 300, atorvastatin - plan [facility] tomorrow. Hypokalemia 04/09/2009 05/14/2009 Overview: -Replete. [...] of this encounter (statuses as of 05/09/2023) [facility] History of Past illness Narrative* Problem [...] heparin, ASA, plavix 300, atorvastatin - plan [facility] tomorrow. Hypokalemia 04/09/2009 05/14/2009 Overview: -Replete. [...] of this encounter (statuses as of 05/15/2023) [facility] History of Past illness Narrative* Problem [...] heparin, ASA, plavix 300, atorvastatin - plan [facility] tomorrow. Hypokalemia 04/09/2009 05/14/2009 Overview: -Replete. [...] of this encounter (statuses as of 05/23/2023) [facility] History of Past illness Narrative* Problem [...] heparin, ASA, plavix 300, atorvastatin - plan [facility] tomorrow. Hypokalemia 04/09/2009 05/14/2009 Overview: -Replete. [...] of this encounter (statuses as of 05/23/2023) [facility] History of Past illness Narrative* Problem [...] heparin, ASA, plavix 300, atorvastatin - plan [facility] tomorrow. Hypokalemia 04/09/2009 05/14/2009 Overview: -Replete. [...] of this encounter (statuses as of 05/24/2023) [facility] History of Past illness Narrative* Problem [...] heparin, ASA, plavix 300, atorvastatin - plan [facility] tomorrow. Hypokalemia 04/09/2009 05/14/2009 Overview: -Replete. [...] of this encounter (statuses as of 05/25/2023) [facility] History of Past illness Narrative* Problem [...] heparin, ASA, plavix 300, atorvastatin - plan [facility] tomorrow. Hypokalemia 04/09/2009 05/14/2009 Overview: -Replete. [...] of this encounter (statuses as of 06/01/2023) [facility] History of Past illness Narrative* Problem [...] heparin, ASA, plavix 300, atorvastatin - plan [facility] tomorrow. Hypokalemia 04/09/2009 05/14/2009 Overview: -Replete. [...] of this encounter (statuses as of 06/01/2023) [facility] History of Past illness Narrative* Problem [...] heparin, ASA, plavix 300, atorvastatin - plan [facility] tomorrow. Hypokalemia 04/09/2009 05/14/2009 Overview: -Replete. [...] of this encounter (statuses as of 06/01/2023) [facility] History of Past illness Narrative* Problem [...] heparin, ASA, plavix 300, atorvastatin - plan [facility] tomorrow. Hypokalemia 04/09/2009 05/14/2009 Overview: -Replete. [...] of this encounter (statuses as of 06/09/2023) [facility] History of Past illness Narrative* Problem [...] heparin, ASA, plavix 300, atorvastatin - plan [facility] tomorrow. Hypokalemia 04/09/2009 05/14/2009 Overview: -Replete. [...] of this encounter (statuses as of 06/12/2023) [facility] Evaluation note* Diagnosis Onset Date Resolution Status Essential (primary) hypertension chronic History of pulmonary embolism chronic Hyperlipidemia chronic History of non-ST elevation myocardial infarction (NSTEMI) April, resolved [facility] Work Phone: Discharge summary Author Jairo Mitchell [facility] Note Date/Time August 09, 2024 2:56 pm [facility] Medical Records Department [address] [place] [address] Discharge Summary 08/09/24 1437 MR#: [id number] Acct: [id number] Name: LINDA PERALTA Rep #:[id number] : 1945 79 From: Jairo Mitchell DO PCP: Dr. 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 Jairo Mitchell DO; Dr. Amos Floyd MD~ Signed [facility] Work Phone: evaluation note* Diagnosis Onset Date Resolution Status Chest pain acute Essential (primary) hypertension acute History of pulmonary embolism chronic Hyperlipidemia [facility] Work Phone: evaluation note* Diagnosis Adrenal hypofunction (HCC)- Primary Glucocorticoid deficiency Primary hypertension Unspecified essential hypertension ASHD (arteriosclerotic heart disease) Coronary atherosclerosis of unspecified type of vessel, [place] or graft Hip pain Pain in joint, pelvic region and thigh Need for COVID-19 vaccine [facility] Diagnosis Onset Date Resolution Status Chest pain acute Essential (primary) hypertension chronic History of pulmonary embolism chronic Hyperlipidemia chronic Essential (primary) hypertension chronic History of pulmonary embolism chronic Hyperlipidemia [facility] Work Phone: Evaluation note* Diagnosis Onset Date Resolution Status Essential (primary) hypertension chronic History of pulmonary embolism chronic Hyperlipidemia [facility] Work Phone: Evaluation note* Diagnosis Atopic neurodermatitis- Primary Other atopic dermatitis and related conditions [facility] Diagnosis Suspected COVID-19 virus infection- Primary [facility] Diagnosis Stage 3b chronic kidney disease (HCC)- Primary [facility] Diagnosis Onset Date Resolution Status ANGELA (acute kidney injury) ac [place] Elevated troponin acute Hypotension acute Wharton disease chronic Chronic kidney disease chron ic [facility] Work Phone: Evaluation note* Diagnosis Onset Date Resolution Status Moris disease acute ANGELA (acute kidney injury) ac [place] Elevated troponin acute Hypotension acute Chronic kidney disease chron ic Chronic kidney disease, stage 3 chronic 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 (current) use of anticoagulants chronic [facility] Work Phone: Evaluation note* Diagnosis Atopic neurodermatitis- Primary Other atopic dermatitis and related conditions documented in this encounter [facility] note* Diagnosis Onset Date Resolution Status ANGELA (acute kidney injury) re solved Elevated troponin resolved Hypotension resolved [facility] Work Phone: Evaluation note* Diagnosis Pure hypercholesterolemia documented in this encounter [facility] note* Diagnosis Hypotension due to hypovolemia- Primary Elevated troponin Other abnormal blood chemistry Acute kidney injury (HCC) Acute kidney failure, unspecified Stage 3b chronic kidney disease (HCC) Hypercalcemia Anticoagulated on Coumadin Encounter for therapeutic drug monitoring Breast pain, left Mastodynia Encounter for screening mammogram for malignant neoplasm of breast Other screening mammogram documented in this encounter [facility] note* Diagnosis Encounter for screening mammogram for malignant neoplasm of breast Other screening mammogram documented in this encounter [facility] note* Diagnosis Medicare annual wellness visit, subsequent- Primary Routine general medical examination at a [facility] care facility Hypertension, unspecified type Pure hypercholesterolemia Encounter for immunization Need for other specified prophylactic vaccination against single bacterial disease documented in this encounter [facility] note* Diagnosis Onset Date Resolution Status Wharton disease acute ANGELA (acute kidney injury) re solved Elevated troponin resolved Hypotension resolved Moris disease acute Osteoporosis acute Essential (primary) hypertension chronic History of pulmonary embolism chronic Hyperlipidemia chronic History of non-ST elevation myocardial infarction (NSTEMI) April, resolved [facility] Work Phone: Evaluation note* Diagnosis Onset Date Resolution Status Moris disease acute ANGELA (acute kidney injury) re solved Elevated troponin resolved Hypotension resolved Wharton disease acute Osteoporosis acute Essential (primary) hypertension chronic History of pulmonary embolism chronic Hyperlipidemia chronic History of non-ST elevation myocardial infarction (NSTEMI) April, resolved Essential (primary) hypertension chronic History of pulmonary embolism chronic Hyperlipidemia chronic History of non-ST elevation myocardial infarction (NSTEMI) April, resolved [facility] Work Phone: Evaluation note* Diagnosis Atopic neurodermatitis- Primary Other atopic dermatitis and related conditions documented in this encounter [facility] note* Diagnosis Atopic neurodermatitis Other atopic dermatitis and related conditions [facility] Diagnosis Onset Date Resolution Status Moris disease acute Osteoporosis acute Essential (primary) hypertension chronic History of pulmonary embolism chronic Hyperlipidemia chronic History of non-ST elevation myocardial infarction (NSTEMI) April, resolved Essential (primary) hypertension chronic History of pulmonary embolism chronic Hyperlipidemia chronic History of non-ST elevation myocardial infarction (NSTEMI) April, resolved [facility] Work Phone: evaluation noteNo assessment information available [facility] Work Phone: Evaluation note* Diagnosis Primary hypertension- Primary Unspecified essential hypertension Pure hypercholesterolemia Stage 3b chronic kidney disease (HCC) ASHD (arteriosclerotic heart disease) Coronary atherosclerosis of unspecified type of vessel, [place] or graft Osteopenia, unspecified location documented in this encounter [facility] note* Diagnosis Onset Date Resolution Status Aortic stenosis acute MVP (mitral valve prolapse) acute Chronic kidney disease, stage 3 chronic Essential (primary) hypertension chronic History of pulmonary embolism chronic Hyperlipidemia chronic History of non-ST elevation myocardial infarction (NSTEMI) April, resolved [facility] Work Phone: Evaluation note* Diagnosis Hip pain, unspecified laterality- Primary Stage 3b chronic kidney disease (HCC) Deep vein thrombosis (DVT) of lower extremity, unspecified chronicity, unspecified laterality, unspecified vein (HCC) Need for influenza vaccination Need for prophylactic vaccination and inoculation against influenza [facility] Diagnosis Hip pain, unspecified laterality [M25.559]- Primary [facility] Diagnosis Foot pain, right- Primary Pain in limb Closed fracture of right foot, initial encounter [facility] Diagnosis Pure hypercholesterolemia [facility] Diagnosis Closed displaced fracture of fifth metatarsal bone of right foot, initial encounter- Primary documented in this encounter [facility] note* Diagnosis Onset Date Resolution Status Wharton disease chronic Osteoporosis chronic [facility] Work Phone: Evaluation note* Diagnosis Closed displaced fracture of fifth metatarsal bone of right foot, initial encounter [facility] Closed displaced fracture of fifth metatarsal bone of right foot, initial encounter [facility] Diagnosis Closed displaced fracture of fifth metatarsal bone of right foot, initial encounter [facility] Diagnosis Medicare annual wellness visit, [...] COVID-19 vaccine Hypercalcemia [facility] Diagnosis Onset Date Resolution Status Wharton disease chronic Osteoporosis chronic Aortic stenosis acute Dizziness acute MVP (mitral valve prolapse) acute Chronic kidney disease, stage 3 chronic Essential (primary) hypertension chronic History of pulmonary embolism chronic Hyperlipidemia chronic History of non-ST elevation myocardial infarction (NSTEMI) April, resolved [facility] Work Phone: Evaluation note* Diagnosis Gait abnormality- Primary Abnormality of gait Hip pain, unspecified laterality Closed displaced fracture of fifth metatarsal bone of right foot with delayed healing, subsequent encounter [facility] Diagnosis Gait abnormality- Primary Abnormality of gait Hip pain, unspecified laterality Closed displaced fracture of fifth metatarsal bone of right foot with delayed healing, subsequent encounter [facility] Diagnosis Onset Date Resolution Status Aortic stenosis acute Dizziness acute MVP (mitral valve prolapse) acute Chronic kidney disease, stage 3 chronic Essential (primary) hypertension chronic History of pulmonary embolism chronic Hyperlipidemia chronic History of non-ST elevation myocardial infarction (NSTEMI) April, resolved [facility] Work Phone: Evaluation note* Diagnosis Gait abnormality- Primary Abnormality of gait Hip pain, unspecified laterality Closed displaced fracture of fifth metatarsal bone of right foot with delayed healing, subsequent encounter [facility] Diagnosis Hypercalcemia- Primary [facility] Diagnosis Hypercalcemia- Primary Fatigue, unspecified type Urinary frequency Myalgias Confusion Unspecified psychosis Weakness Other malaise and fatigue [facility] Diagnosis Hypercalcemia- Primary Moris's disease (CMS/HCC) Glucocorticoid deficiency Anemia in chronic kidney disease Chronic kidney disease Chronic kidney disease, unspecified Generalized muscle weakness Muscle weakness (generalized) Hypertensive kidney disease with stage 3b chronic kidney disease (CMS/HCC) Urinary tract infection, site not specified documented in this encounter [facility] Work Phone: Evaluation note* Diagnosis Physical deconditioning- Primary Debility, unspecified Muscle weakness Muscle weakness (generalized) Gait abnormality Abnormality of gait [facility] Diagnosis Other specified hypotension- Primary Wharton's disease (HCC) Glucocorticoid deficiency Hypercalcemia [facility] Diagnosis Gait abnormality- Primary Abnormality of gait Physical deconditioning Debility, unspecified Weakness Other malaise and fatigue [facility] Diagnosis Physical deconditioning- Primary Debility, unspecified Gait abnormality Abnormality of gait Muscle weakness Muscle weakness (generalized) [facility] Diagnosis Physical deconditioning- Primary Debility, unspecified Gait abnormality Abnormality of gait Weakness Other malaise and fatigue [facility] Diagnosis Physical deconditioning- Primary Debility, unspecified Gait abnormality Abnormality of gait Weakness Other malaise and fatigue [facility] Diagnosis Hypercalcemia- Primary Age-related osteoporosis with current pathological fracture with routine healing Aftercare for healing pathologic fracture of other bone Hypokalemia Hypopotassemia Adrenal hypofunction (HCC) Glucocorticoid deficiency NSTEMI (non-ST elevated myocardial infarction) (HCC) Acute myocardial infarction, subendocardial infarction, episode of care unspecified ASHD (arteriosclerotic heart disease) Coronary atherosclerosis of unspecified type of vessel, [place] or graft Nonrheumatic aortic valve stenosis Aortic valve disorders [facility] Diagnosis Physical deconditioning- Primary Debility, unspecified Gait abnormality Abnormality of gait Weakness Other malaise and fatigue [facility] Diagnosis Physical deconditioning- Primary Debility, unspecified Gait abnormality Abnormality of gait Weakness Other malaise and fatigue [facility] Diagnosis Primary hypertension- Primary Unspecified essential hypertension Hypercalcemia Adrenal hypofunction (HCC) Glucocorticoid deficiency Nonrheumatic aortic valve stenosis Aortic valve disorders [facility] Diagnosis Abnormal finding of diagnostic imaging- Primary Other nonspecific (abnormal) findings on radiological and other examinations of body structure [facility]* Diagnosis Physical deconditioning- Primary Debility, unspecified Gait abnormality Abnormality of gait Weakness Other malaise and fatigue [facility] Diagnosis Physical deconditioning- Primary Debility, unspecified Gait abnormality Abnormality of gait Weakness Other malaise and fatigue [facility] Diagnosis Physical deconditioning- Primary Debility, unspecified Gait abnormality Abnormality of gait Weakness Other malaise and fatigue [facility] Diagnosis Foot pain, right Pain in limb [facility] Diagnosis Hip pain, unspecified laterality [facility]* Diagnosis Age-related osteoporosis with current pathological fracture with routine healing- Primary Aftercare for healing pathologic fracture of other bone Hypercalcemia Adrenal hypofunction (HCC) Glucocorticoid deficiency [facility]* Diagnosis Pure hypercholesterolemia [facility] Diagnosis Age-related osteoporosis with current pathological fracture with routine healing- Primary Aftercare for healing pathologic fracture of other bone [facility] Diagnosis Age-related osteoporosis with current pathological fracture with routine healing- Primary Aftercare for healing pathologic fracture of other bone [facility] Diagnosis Abnormal finding of diagnostic imaging- Primary Other nonspecific (abnormal) findings on radiological and other examinations of body structure [facility]* Diagnosis Abnormal finding of diagnostic imaging- Primary Other nonspecific (abnormal) findings on radiological and other examinations of body structure [facility]* Diagnosis Abnormal finding of diagnostic imaging Other nonspecific (abnormal) findings on radiological and other examinations of body structure [facility] Diagnosis Age-related osteoporosis with current pathological fracture with routine healing- Primary Aftercare for healing pathologic fracture of other bone [facility] Diagnosis Nodule of lower lobe of right lung needing follor up CT- Primary [facility] Diagnosis Medicare annual wellness visit, subsequent- [...] Coronary atherosclerosis of unspecified type of vessel, [place] or graft Primary hypertension Unspecified essential hypertension [...] Aortic valve disorders [facility] Diagnosis Nonrheumatic aortic valve stenosis- Primary [facility] Diagnosis Recurrent UTI- Primary Urinary tract infection, site not specified documented in this encounter [facility] note* Diagnosis Aortic valve stenosis, etiology of cardiac valve disease unspecified- Primary Deep vein thrombosis (DVT) of proximal vein of both lower extremities, unspecified chronicity (HCC) Acute systolic heart failure (HCC) Acute systolic heart failure Wharton's disease (HCC) Glucocorticoid deficiency Renal insufficiency Unspecified disorder of kidney and ureter Recurrent UTI Urinary tract infection, site not specified documented [facility] Diagnosis Nonrheumatic aortic valve stenosis documented [facility]* Diagnosis Recurrent UTI- Primary Urinary tract infection, site not specified History of kidney stones Personal history of urinary calculi documented in this encounter [facility] note* Diagnosis Aortic valve stenosis, etiology of cardiac valve disease unspecified- Primary Deep vein thrombosis (DVT) of proximal vein of both lower extremities, unspecified chronicity (HCC) Acute systolic heart failure (HCC) Acute systolic heart failure Moris's disease (HCC) Glucocorticoid deficiency Renal insufficiency Unspecified disorder of kidney and ureter Recurrent UTI Urinary tract infection, site not specified documented [facility]* Diagnosis Renal insufficiency- Primary Unspecified disorder of kidney and ureter [facility] Diagnosis Renal insufficiency- Primary Unspecified disorder of kidney and ureter [facility] Diagnosis Renal insufficiency- Primary Unspecified disorder of kidney and ureter [facility] Diagnosis Renal insufficiency- Primary Unspecified disorder of kidney and ureter [facility] Diagnosis Severe aortic stenosis- Primary Aortic valve disorders Severe aortic stenosis- Primary Aortic valve disorders Stage 3 chronic kidney disease, unspecified whether stage 3a or 3b CKD (HCC) Acute deep vein thrombosis (DVT) of right lower extremity, unspecified vein (HCC) Acute systolic heart failure (HCC) Acute systolic heart failure Moris's disease (HCC) Glucocorticoid deficiency [facility] Diagnosis Severe aortic stenosis- Primary Aortic valve disorders Severe aortic stenosis- Primary Aortic valve disorders Severe aortic stenosis Aortic valve disorders [facility] Diagnosis Nonrheumatic aortic valve stenosis- Primary documented in this encounter [facility] note* Diagnosis Severe aortic stenosis- Primary Aortic valve disorders Severe aortic stenosis Aortic valve disorders Aortic valve stenosis, etiology of cardiac valve disease unspecified Syncope and collapse Severe aortic stenosis Aortic valve disorders documented in this encounter [facility] note* Diagnosis Severe aortic stenosis- Primary Aortic valve disorders documented in this encounter [facility] note* Diagnosis S/p TAVR (transcatheter aortic valve replacement), bioprosthetic- Primary Pure hypercholesterolemia Encounter for immunization Need for other specified prophylactic vaccination against single bacterial disease Stage 3b chronic kidney disease (HCC) Hypertensive kidney disease with stage 3b chronic kidney disease (HCC) Nonrheumatic aortic valve stenosis Aortic valve disorders documented in this encounter [facility] note* Diagnosis Severe aortic stenosis- Primary Aortic valve disorders Stage 3b chronic kidney disease (HCC) Wharton's disease (HCC) Glucocorticoid deficiency Chronic systolic heart failure (HCC) Chronic systolic heart failure Deep vein thrombosis (DVT) of proximal vein of both lower extremities, unspecified chronicity (HCC) documented in this encounter [facility] note* Diagnosis Severe aortic stenosis- Primary Aortic valve disorders documented in this encounter [facility] note* Diagnosis Severe aortic stenosis- Primary Aortic valve disorders documented in this encounter [facility] note* Diagnosis Chronic systolic heart failure (HCC)- Primary Chronic systolic heart failure S/P TAVR (transcatheter aortic valve replacement) Deep vein thrombosis (DVT) of proximal vein of both lower extremities, unspecified chronicity (HCC) Stage 3b chronic kidney disease (CMS/HCC) Moris's disease (HCC) Glucocorticoid deficiency documented in this encounter [facility] note* Diagnosis Severe aortic stenosis Aortic valve disorders documented in this encounter [facility] note* Diagnosis Chronic systolic heart failure (HCC)- Primary Chronic systolic heart failure S/P TAVR (transcatheter aortic valve replacement) Deep vein thrombosis (DVT) of proximal vein of both lower extremities, unspecified chronicity (HCC) Stage 3b chronic kidney disease (CMS/HCC) Wharton's disease (HCC) Glucocorticoid deficiency documented in this encounter [facility] Discharge instructionsAmbulatory Orders* Phase II, Outpatient Cardiac Rehab Location: None [facility] Work Phone: Progress note Author Jordan Marte [facility] Note Date/Time November 14, 2024 9:32am [facility] [address] [place] [address] OFFICE VISIT Date of Service: 11/14/24 MR#: [id number] Acct: [id number] Name: LINDA PERALTA Rep #: [id number] : 1945 Provider: Dr. Jarocho Mrate MD Age/Sex: 79/F Location: [facility] Status: Signed HPI HPI History [...] Monitor Intake Visit Reasons: 6 M FU Hand Paster Required: No Accompanied by: Daughter Is patient in pain?: No Allergies ciprofloxacin (From Cipro) Allergy (Verified 11/14/24 09:05) Rash Penicillins Allergy (Verified 11/14/24 09:05) Rash Medications ?Medication ?Instructions ?Recorded ?Confirmed ?Type acetaminophen 500 mg tablet 1,000 mg (2 x 500 mg) PO Q 6H PRN 04/08/20 11/14/24 Rx Pain Score 1-10 denosumab 60 mg/mL subcutaneous 60 mg subcut [id number] #1 mL 11/24/22 11/14/24 Rx syringe (Prolia) [...] (BMI 25.0-29.9) Aortic stenosis Aortic stenosis, severe Wharton's disease MVP (mitral valve prolapse) Aortic stenosis Hypokalemia Elevated serum creatinine Acute prerenal azotemia History of kidney cancer Chronic kidney disease Hypercalcemia Frequent falls Closed head injury (03/20/20) Hypoglycemia (03/20/20) Acute electrocardiogram changes Atopic dermatitis Osteopenia determined by x-ray History of pulmonary embolism 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 (current) use of anticoagulants Orthostatic hypotension Chronic kidney disease, stage 3 Wharton disease Essential (primary) hypertension Hyperlipidemia Recurrent deep [...] Other History of DVT (deep vein thrombosis) [facility] (current) use of anticoagulants Social History Smoking Status: Never smoker alcohol intake: never substance use type: does not use caffeine: Yes what type of physical activity do you participate in: walking seatbelt use: always do you feel safe at home: Yes additional social history: [place]- Retired patient is retired ROS Const Const: [...] previous the aortic stenosis is worse. Echocardiogram 06/12/2023?[facility]: Left ventricle is normal in size. There [...] does follow with nephrology for this. (6) [facility] (current) use of anticoagulants: Status: Inactive Plan: [...] unspecified Chronic kidney disease, stage 3 N18.3 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 (current) use of anticoagulants Z79.01 S/P TAVR (transcatheter aortic valve replacement) Z95.2 Coding Level of Care Code Off vis,est,level 4 Diagnoses MVP (mitral valve prolapse) I34.1 History of non-ST elevation myocardial infarction (NSTEMI) I25.2 Essential (primary) hypertension I10 Hyperlipidemia, unspecified hyperlipidemia type E78.5 Hyperlipidemia type: unspecified Chronic kidney disease, stage 3 N18.3 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 (current) use of anticoagulants Z79.01 S/P TAVR (transcatheter aortic valve replacement) Z95.2 Clinical Quality Measures Falls Risk Screening/Assistive Devices Have you fallen in the past year?: No Cardiac Ejection fraction %: 47 11/14/24 0935 <Electronically signed by Jordan Gaitan> Date _ Jordan Marte MD Cosigner Signature: Date (if applicable) CC: Dr. Amos Floyd MD ~ [place] [email or web address] Work Phone: [employer] for referral (narrative)* Diagnostic Procedure Only (Routine) - Authorized Specialty Diagnoses / Procedures Referred By Contac dana Referred To Contact BR IMAGING Diagnoses Encounter for screening mammogram for malignant neoplasm of breast Procedures TAE SCREENING SCREENING MAMMOGRAPHY BI 2-VIEW BREAST INC Amos Higgins MD [facility] [place] [id number] Br Imaging [place] [phone] Referral ID Status Reason Start Date Expiration Date Visits Requested Visits Authorized [id number] Authorized Auto-Generat ed Referral 01/05/2023 1 1 [facility] for referral (narrative)* Diagnostic Procedure Only (Routine) - Closed Specialty Diagnoses / Procedures Referred By Contac Referred To Contact BR IMAGING Diagnoses Encounter for screening mammogram for malignant neoplasm of breast Procedures TAE SCREENING SCREENING MAMMOGRAPHY BI 2-VIEW BREAST INC Amos Higgins MD [address] [place] [address] Br Imaging [employer] [place] [phone] Referral ID Status Reason Start Date Expiration Date V isits Requested Visits Authorized [id number] Closed Auto-Generate d Referral 12/06/2021 01/05/2023 1 1 [facility] for referral (narrative)* Diagnostic Procedure Only (Routine) - Pending Review Specialty Diagnoses / Procedures Referred By Contac t Referred To Contact XR IMAGING Diagnoses Closed displaced fracture of fifth metatarsal bone of right foot, initial encounter Procedures XR FOOT GENERAL 3V AP/LAT/OBL RIGHT RADEX FOOT COMPLETE MINIMUM 3 VIEWS Omar [address] [place] [address] [place] [address] Referral ID Status Reason Start Date Expiration Date Visits Requested Visits Authorized [id number] Pending Review Auto-Generat ed Referral 01/18/2024 1 1 [facility] for referral (narrative)* Diagnostic Procedure Only (Routine) - Closed Specialty Diagnoses / Procedures Referred By Contac t Referred To Contact XR IMAGING Diagnoses Closed displaced fracture of fifth metatarsal bone of right foot, initial encounter Procedures XR FOOT GENERAL 3V AP/LAT/OBL RIGHT RADEX FOOT COMPLETE MINIMUM 3 [place] [place] [address] [place] [address] Referral ID Status Reason Start Date Expiration Date V isits Requested Visits Authorized [id number] Closed Auto-Generate d Referral 12/17/2022 12/17/2023 1 1 [facility] for referral (narrative)* Diagnostic Procedure Only (Routine) - Closed Specialty Diagnoses / Procedures Referred By Contac t Referred To Contact XR IMAGING Diagnoses Closed displaced fracture of fifth metatarsal bone of right foot, initial encounter Procedures XR FOOT GENERAL 3V AP/LAT/OBL RIGHT RADEX FOOT COMPLETE MINIMUM 3 VIEWS Omar Cruz[address] [place] [address] [place] [address] Referral ID Status Reason Start Date Expiration Date V isits Requested Visits Authorized [id number] Closed Auto-Generate d Referral 11/17/2022 12/17/2023 1 1 [facility] for referral (narrative)* Diagnostic Procedure Only (Urgent) - Closed Specialty Diagnoses / Procedures Referred By Contac t Referred To Contact XR IMAGING Diagnoses Foot pain, right Procedures XR FOOT GENERAL 3V AP/LAT/OBL RIGHT RADEX FOOT COMPLETE MINIMUM 3 VIEWS Jacinda Enriquez APRN.TELLY [address] [place] [address] [place] [address] Referral ID Status Reason Start Date Expiration Date V isits Requested Visits Authorized [id number] Closed Auto-Generate d Referral 11/08/2022 12/08/2023 1 1 [facility] for referral (narrative)* Diagnostic Procedure Only (Routine) - Closed Specialty Diagnoses / Procedures Referred By Contac t Referred To Contact XR IMAGING Diagnoses Hip pain, unspecified laterality Procedures XR HIP BILATERAL 5V PEL/AP/LAT EACH HIP RADEX HIPS BILATERAL WITH PELVIS MINIMUM 5 VIEWS Amos Floyd MD [address] [place] [address] [place] [address] Referral ID Status Reason Start Date Expiration Date V isits Requested Visits Authorized [id number] Closed Auto-Generate d Referral 10/26/2022 11/25/2023 1 1 [facility] for referral (narrative)* Diagnostic Procedure Only (Routine) - New Request Specialty Diagnoses / Procedures Referred By Contac t Referred To Contact XR IMAGING Diagnoses Age-related osteoporosis with current pathological fracture with routine healing Procedures DXA-AXIAL SKELETON DXA BONE DENSITY STUDY 1/> SITES AXIAL SKAmos Quick MD [address] [place] [address] [place] [address] Referral ID Status Reason Start Date Expiration Date Visits Requested Visits Authorized [id number] New Request Auto-Generat ed Referral 12/29/2024 1 1 [facility] for referral (narrative)No reason for referral information availableWTogus [facility] Work Phone: Reason for visit Narrative* Diagnostic Procedure Only (Routine) - Closed Specialty Diagnoses / Procedures Referred By Contac t Referred To Contact BR IMAGING Diagnoses Encounter for screening mammogram for malignant neoplasm of breast Procedures TAE SCREENING SCREENING MAMMOGRAPHY BI 2-VIEW BREAST INC CAD Amos Floyd MD [address] [place] [address] Br Imaging [address] [place] [address] Referral ID Status Reason Start Date Expiration Date V isits Requested Visits Authorized [id number] Closed Auto-Generate d Referral 12/06/2021 01/05/2023 1 1 [facility] for visit Narrative* Diagnostic Procedure Only (Routine) - Closed Specialty Diagnoses / Procedures Referred By Contac t Referred To Contact XR IMAGING Diagnoses Closed displaced fracture of fifth metatarsal bone of right foot, initial encounter Procedures XR FOOT GENERAL 3V AP/LAT/OBL RIGHT RADEX FOOT COMPLETE MINIMUM 3 VIEWS TestOmar suazo [address] [place] [address] [place] [address] Referral ID Status Reason Start Date Expiration Date V isits Requested Visits Authorized [id number] Closed Auto-Generate d Referral 12/17/2022 12/17/2023 1 1 [facility] for visit Narrative* Diagnostic Procedure Only (Routine) - Closed Specialty Diagnoses / Procedures Referred By Contac t Referred To Contact XR IMAGING Diagnoses Closed displaced fracture of fifth metatarsal bone of right foot, initial encounter Procedures XR FOOT GENERAL 3V AP/LAT/OBL RIGHT RADEX FOOT COMPLETE MINIMUM 3 VIEWS TestraOmar bernardo [address] [place] [address] [place] [address] Referral ID Status Reason Start Date Expiration Date V isits Requested Visits Authorized [id number] Closed Auto-Generate d Referral 11/17/2022 12/17/2023 1 1 [facility] for visit Narrative* Diagnostic Procedure Only (Routine) - Closed Specialty Diagnoses / Procedures Referred By Contac t Referred To Contact XR IMAGING Diagnoses Closed displaced fracture of fifth metatarsal bone of right foot, initial encounter Procedures XR FOOT GENERAL 3V AP/LAT/OBL RIGHT RADEX FOOT COMPLETE MINIMUM 3 VIEWS Jaycelakeisha Omar [address] [place] [address] [place] [address] Referral ID Status Reason Start Date Expiration Date V isits Requested Visits Authorized [id number] Closed Auto-Generate d Referral 12/19/2022 01/18/2024 1 1 [facility] for visit Narrative* Diagnostic Procedure Only (Urgent) - Closed Specialty Diagnoses / Procedures Referred By Contac t Referred To Contact XR IMAGING Diagnoses Foot pain, right Procedures XR FOOT GENERAL 3V AP/LAT/OBL RIGHT RADEX FOOT COMPLETE MINIMUM 3 VIEWS Jacinda Enriquez APRN.SUPPLY PERSON [address] [place] [address] [place] [address] Referral ID Status Reason Start Date Expiration Date V isits Requested Visits Authorized [id number] Closed Auto-Generate d Referral 11/08/2022 12/08/2023 1 1 [facility] for visit Narrative* Diagnostic Procedure Only (Routine) - Closed Specialty Diagnoses / Procedures Referred By Contac t Referred To Contact XR IMAGING Diagnoses Hip pain, unspecified laterality Procedures XR HIP BILATERAL 5V PEL/AP/LAT EACH HIP RADEX HIPS BILATERAL WITH PELVIS MINIMUM 5 VIEWS Amos Floyd MD [address] [place] [address] [place] [address] Referral ID Status Reason Start Date Expiration Date V isits Requested Visits Authorized [id number] Closed Auto-Generate d Referral 10/26/2022 11/25/2023 1 1 [facility] for visit Narrative* Imaging (Routine) - Closed Specialty Diagnoses / Procedures Referred By Contac t Referred To Contact Radiology Diagnoses Nonrheumatic aortic valve stenosis Procedures CTA Angiogram TAVR Dylon Gupta APRN - SUPPLY PERSON [address] [place] [address] Phone: tel: fax: Referral ID Status Reason Start Date Expiration Date Visits Re quested Visits Authorized [id number] Closed 09/03/2024 09/03/[address] [email or web address] for [facility] Narrative* Auth/Cert (Routine) Specialty Diagnoses / Procedures Referred By Fransico Referred To Contact Diagnoses Severe aortic stenosis Procedures TRANSCATHETER AORTIC VALVE REPLACEMENT, TRANSTHORACIC ECHOCARDIOGRAM TRANSCATHETER AORTIC VALVE REPLACEMENT, TRANSTHORACIC ECHOCARDIOGRAM Memo Canas MD [address] [place] [address] Phone: tel: fax: [facility] [address] [place] [address] Phone: tel: Referral ID Status Reason Start Date Expiration Date Visits Re quested Visits Authorized [address] [email or web address] for visit Narrative* Imaging (Routine) - Closed Specialty Diagnoses / Procedures [facility] Referred To Contact Cardiology Diagnoses Severe aortic stenosis Procedures Transthoracic echocardiogram (TTE) complete with contrast, bubble, strain, and 3D PRN IA ECHO TTHRC R-T 2D W/WOM-MODE COMPL SPEC&COLR D IA TTE W OR WO FOL WCON,DOPPLER Dylon Gupta, [place] [address] Phone: tel: fax: Referral ID Status Reason Start Date Expiration Date Visits Re quested Visits Authorized [id number] Closed 10/24/2024 10/24/2025 1 1 [facility] Summary Purpose Family History Relationship Condition Age at Onset Recorded Date/T rupa father Cerebrovascular accident (CVA) Unknown mother Myocardial infarction 87 Relationship Condition Age at Onset Recorded Date/T rupa Not Specified History of deep venous thrombosis Unknow n [facility] current us e of anticoagulant therapy Unknown father Cerebrovascular accident (CVA) Unknown mother Myocardial infarction 87 Advance Directives Documents on File Type Date Recorded Patient Eye Surgeon Expl anation Advance Directive(s) 06/15/2023 1:23 PM Date Activated Date Inactivated Comments 06/09/2023 9:18 AM 06/13/2023 5:43 PM Question Answer Comments DNR Order Discussed With: Patient Advance Directive Response Recorded Date/ Time Advance Directives Yes March 24, 2016 12:54pm Living Will Yes April 23, 2020 1:27am Power of Advertising Assistant Yes April 23 1:27am Documents on File Type Date Recorded Patient Eye Surgeon Expl anation Advance Directive(s) Advance Directive(s) 03/25/2016 3:29 PM Advance Directive(s) 03/22/2016 8:29 AM Advance Directive(s) 09/14/2015 10:37 AM Advance Directive Response Recorded Date/ Time Name of Medical Power of Advertising Assistant Echo Bravo November 17, 2021 1:25am Advance Directives Yes March 24, 2016 12:54pm Living Will Yes November 17, 2021 1:25am Power of Advertising Assistant Yes October 1:25am Advance Directive Response Recorded Date/ Time Name of Medical Power of Advertising Assistant Echo Bravo November 17, 2021 12:25am Advance Directives Yes March 24, 2016 11:54am Living Will Yes November 17, 2021 12:25am Power of Advertising Assistant Yes October 12:25am Advance Directive Response Recorded Date/ Time Advance Directives Yes March 24, 2016 11:54am Living Will Yes November 17, 2021 12:25am Power of Advertising Assistant Yes October 12:25am Advance Directive Response Recorded Date/ Time Advance Directives Yes March 24, 2016 12:54pm Living Will Yes November 17, 2021 1:25am Power of Advertising Assistant Yes October 1:25am Advance Directive Response Recorded Date/ Time Advance Directives Yes March 24, 2016 12:54pm Living Will No May 15, 2023 3:08pm Power of Advertising Assistant No May 14 3:08pm Advance Directive Response Recorded Date/ Time Name of Medical Power of Advertising Assistant souleymane michele May 23, 2023 8:15pm Advance Directives Yes March 24, 2016 12:54pm Living Will Yes May 23, 2023 8:15pm Power of Advertising Assistant Yes May 22 8:15pm Documents on File Type Date Recorded Patient Eye Surgeon Expl anation Healthcare Power of Atty 05/12/2020 Living Will 05/12/2020 Latest Code Status on File Code Status Date Activated Date Inactivated Comments DNR and No Intubation and No ICU 05/24/2023 2:11 AM Question Answer Comments Plan of Care: Code Status Discussi on Completed Decision Maker: Patient Date Activated Date Inactivated Comments 06/09/2023 9:18 AM Documents on File Type Date Recorded Patient Eye Surgeon Expl anation Advance Directive(s) 06/15/2023 1:23 PM Date Activated Date Inactivated Comments 06/09/2023 9:18 AM 06/13/2023 5:43 PM Question Answer Comments DNR Order Discussed With: Patient Advance Directive Response Recorded Date/ Time Living Will Yes November 17, 2021 1:25am Do you have a Healthcare Power of Advertising Assistant? Yes November 17, 2021 1:25am Living Will Yes March 23 12:17am Do you have a Healthcare Power of Advertising Assistant? Yes March 23, 2024 12:17am Living Will Yes January 19 11:49pm Do you have a Healthcare Power of Advertising Assistant? Yes January 20, 2024 11:49pm Advance Directives Yes March 24, 2016 12:54pm Advance Directive Response Recorded Date/ Time Living Will Yes November 17, 2021 1:25am Do you have a Healthcare Power of Advertising Assistant? Yes November 17, 2021 1:25am Living Will Yes March 23 12:17am Do you have a Healthcare Power of Advertising Assistant? Yes March 23, 2024 12:17am Living Will Yes May 23, 2023 8:15pm Do you have a Healthcare Power of Advertising Assistant? Yes May 23, 2023 8:15pm Living Will Yes January 19 11:49pm Do you have a Healthcare Power of Advertising Assistant? Yes January 20, 2024 11:49pm Living Will Yes May 20, 2024 9:59pm Do you have a Healthcare Power of Advertising Assistant? Yes May 20, 2024 9:59pm Advance Directives Yes March 24, 2016 12:54pm Advance Directive Response Recorded Date/ Time Living Will Yes November 17, 2021 1:25am Do you have a Healthcare Power of Advertising Assistant? Yes November 17, 2021 1:25am Living Will Yes March 23 12:17am Do you have a Healthcare Power of Advertising Assistant? Yes March 23, 2024 12:17am Living Will Yes June 19, 2024 8:48pm Do you have a Healthcare Power of Advertising Assistant? Yes June 19, 2024 8:48pm Living Will Yes May 23, 2023 8:15pm Do you have a Healthcare Power of Advertising Assistant? Yes May 23, 2023 8:15pm Living Will Yes January 19 11:49pm Do you have a Healthcare Power of Advertising Assistant? Yes January 20, 2024 11:49pm Living Will Yes May 20, 2024 9:59pm Do you have a Healthcare Power of Advertising Assistant? Yes May 20, 2024 9:59pm Advance Directives Yes March 24, 2016 12:54pm Advance Directive Response Recorded Date/ Time Living Will Yes November 17, 2021 1:25am Do you have a Healthcare Power of Advertising Assistant? Yes November 17, 2021 1:25am Living Will Yes March 23 12:17am Do you have a Healthcare Power of Advertising Assistant? Yes March 23, 2024 12:17am Living Will Yes June 19, 2024 8:48pm Do you have a Healthcare Power of Advertising Assistant? Yes June 19, 2024 8:48pm Living Will Yes May 23, 2023 8:15pm Do you have a Healthcare Power of Advertising Assistant? Yes May 23, 2023 8:15pm Living Will Yes May 20, 2024 9:59pm Do you have a Healthcare Power of Advertising Assistant? Yes May 20, 2024 9:59pm Advance Directives Yes March 24, 2016 12:54pm Advance Directive Response Recorded Date/ Time Living Will Yes November 17, 2021 1:25am Do you have a Healthcare Pow er of Advertising Assistant? Yes November 17, 2021 1:25am Living Will Yes March 23 12:17am Do you have a Healthcare Pow er of Advertising Assistant? Yes March 23, 2024 12:17am Living Will Yes June 19, 2024 8:48pm Do you have a Healthcare Pow er of Advertising Assistant? Yes June 19, 2024 8:48pm Living Will Yes May 23, 2023 8:15pm Do you have a Healthcare Pow er of Advertising Assistant? Yes May 23, 2023 8:15pm Living Will Yes May 20, 2024 9:59pm Do you have a Healthcare Pow er of Advertising Assistant? Yes May 20, 2024 9:59pm Advance Directives on File Yes August 05, 2024 7:22am Living Will Yes August 05, 2024 7:22am Do you have a Healthcare Pow er of Advertising Assistant? Yes August 05, 2024 7:22am Name of Medical Power of Advertising Assistant daughter bisi simpson August 05, 2024 7:22am Advance Directives Yes August 05 7:22am Advance Directive Response Recorded Date/ Time Living Will Yes November 17, 2021 1:25am Do you have a Healthcare Pow er of Advertising Assistant? Yes November 17, 2021 1:25am Living Will Yes March 23 12:17am Do you have a Healthcare Pow er of Advertising Assistant? Yes March 23, 2024 12:17am Living Will Yes June 19, 2024 8:48pm Do you have a Healthcare Pow er of Advertising Assistant? Yes June 19, 2024 8:48pm Living Will Yes May 23, 2023 8:15pm Do you have a Healthcare Pow er of Advertising Assistant? Yes May 23, 2023 8:15pm Living Will Yes May 20, 2024 9:59pm Do you have a Healthcare Pow er of Advertising Assistant? Yes May 20, 2024 9:59pm Advance Directives on File Yes August 05, 2024 7:22am Living Will Yes August 05, 2024 7:22am Do you have a Healthcare Pow er of Advertising Assistant? Yes August 05, 2024 7:22am Name of Medical Power of Advertising Assistant daughter bisi simpson August 05, 2024 7:22am Advance Directives Yes August 05 7:22am Do you have a Healthcare Pow er of Advertising Assistant? Yes August 07, 2024 4:00pm Advance Directive Response Recorded Date/ Time Living Will Yes November 17, 2021 1:25am Do you have a Healthcare Pow er of Advertising Assistant? Yes November 17, 2021 1:25am Living Will Yes March 23 12:17am Do you have a Healthcare Pow er of Advertising Assistant? Yes March 23, 2024 12:17am Living Will Yes June 19, 2024 8:48pm Do you have a Healthcare Pow er of Advertising Assistant? Yes June 19, 2024 8:48pm Living Will Yes May 23, 2023 8:15pm Do you have a Healthcare Pow er of Advertising Assistant? Yes May 23, 2023 8:15pm Living Will Yes May 20, 2024 9:59pm Do you have a Healthcare Pow er of Advertising Assistant? Yes May 20, 2024 9:59pm Advance Directives on File Yes August 05, 2024 7:22am Living Will Yes August 05, 2024 7:22am Do you have a Healthcare Pow er of Advertising Assistant? Yes August 05, 2024 7:22am Name of Medical Power of Advertising Assistant daughter bisi simpson August 05, 2024 7:22am Advance Directives Yes August 05 7:22am Do you have a Healthcare Pow er of Advertising Assistant? Yes August 07, 2024 9:52pm Name of Medical Power of Advertising Assistant souleymane August 07, 2024 9:52pm Advance Directive Response Recorded Date/ Time Living Will Yes June 19, 2024 8:48pm Do you have a Healthcare Power of Advertising Assistant? Yes June 19, 2024 8:48pm Living Will Yes May 23, 2023 8:15pm Do you have a Healthcare Power of Advertising Assistant? Yes May 23, 2023 8:15pm Living Will Yes May 20, 2024 9:59pm Do you have a Healthcare Power of Advertising Assistant? Yes May 20, 2024 9:59pm Advance Directives on File Yes August 05, 2024 7:22am Living Will Yes August 05, 2024 7:22am Do you have a Healthcare Power of Advertising Assistant? Yes August 05, 2024 7:22am Name of Medical Power of Advertising Assistant daughter bisi simpson August 05, 2024 7:22am Advance Directives Yes August 05 7:22am Do you have a Healthcare Power of Advertising Assistant? Yes August 07, 2024 9:52pm Name of Medical Power of Advertising Assistant souleymane August 07, 2024 9:52pm Advance Directive Response Recorded Date/ Time Living Will Yes June 19, 2024 8:48pm Do you have a Healthcare Power of Advertising Assistant? Yes June 19, 2024 8:48pm Advance Directives on File Yes August 05, 2024 7:22am Living Will Yes August 05, 2024 7:22am Do you have a Healthcare Power of Advertising Assistant? Yes August 05, 2024 7:22am Name of Medical Power of Advertising Assistant leny simpson August 05, 2024 7:22am Advance Directives Yes August 05 7:22am Do you have a Healthcare Power of Advertising Assistant? Yes August 07, 2024 9:52pm Name of Medical Power of Advertising Assistant souleymane August 07, 2024 9:52pm Advance Directive Response Recorded Date/ Time Advance Directives on File Yes August 05, 2024 7:22am Living Will Yes August 05, 2024 7:22am Do you have a Healthcare Power of Advertising Assistant? Yes August 05, 2024 7:22am Name of Medical Power of Advertising Assistant leny simpson August 05, 2024 7:22am Advance Directives Yes August 05 7:22am Do you have a Healthcare Power of Advertising Assistant? Yes August 07, 2024 9:52pm Name of Medical Power of Advertising Assistant souleymane August 07, 2024 9:52pm Date Activated Date Inactivated Comments 10/23/2024 5:41 AM Date Activated Date Inactivated Comments 10/23/2024 5:41 AM 10/24/2024 3:36 PM Date Activated Date Inactivated Comments 10/23/2024 5:41 AM 10/24/2024 3:36 PM Advance Directive Response Recorded Date/ Time Advance Directives Yes August 05 7:22am Hospital Course Note Send Summary: Discharge [facility] Providers: Provider RoleProvider Name Amos Monge James ConsultingAlvin Sawyer ConsultingNatalie, Di ConsultingLeigh Billy ConsultingVicky Boyd ConsultingMarco A, Amos Rosales Note Recipients: Amos Floyd MD - [id number] [] Discharge: Summary: Admission Date: .01-May-2020 20:47:00 [...] (acute kidney in jury) Elevated troponin Hypotension Wharton disease Chronic kidney disease Chief Complaint S/O INR S/O INR S/O INR S/O INR HYPOTENSION, ANGELA HYPOTENSION, ANGELA HYPOTENSION, ANGELA HYPOTENSION, ANGELA Reason for Visit Moris disease ANGELA (acute kidney injury) Elevated troponin Hypotension Chronic kidney disease Chronic kidney disease, stage 3 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 (current) use of anticoagulants Chief Complaint S/O INR S/O INR S/O INR HYPOTENSION, ANGELA HYPOTENSION, ANGELA HYPOTENSION, ANGELA HYPOTENSION, ANGELA PROLIA/60MG Reason for Visit ANGELA (acute kidney in jury) Elevated troponin Hypotension Chief Complaint S/O INR S/O INR HYPOTENSION, ANGELA HYPOTENSION, ANGELA HYPOTENSION, ANGELA HYPOTENSION, ANGELA PROLIA/60MG 1 Y /[facility] S/p hospital E ORDER Reason for Visit Wharton disease ANGELA (acute kidney injury) Elevated troponin Hypotension Wharton disease Osteoporosis Essential (primary) hypertension History of pulmonary embolism Hyperlipidemia History of non-ST elevation myocardial infarction (NSTEMI) Chief Complaint S/O INR HYPOTENSION, ANGELA HYPOTENSION, ANGELA HYPOTENSION, ANGELA HYPOTENSION, ANGELA PROLIA/60MG 1 Y /[facility] S/p hospital E ORDER 6 wk fu EOERS-3 ORDERING DRS E ORDER Reason for Visit Wharton disease ANGELA (acute kidney injury) Elevated troponin Hypotension Wharton disease Osteoporosis Essential (primary) hypertension History of pulmonary embolism Hyperlipidemia History of non-ST elevation myocardial infarction (NSTEMI) Essential (primary) hypertension History of pulmonary embolism Hyperlipidemia History of non-ST elevation myocardial infarction (NSTEMI) Chief Complaint PROLIA/60MG 1 Y /[facility] S/ hospital E ORDER 6 wk fu [...] Y FU PROLIA/60MG EORDER/INR Reason for Visit Wharton disease Osteoporosis Chief Complaint EORDER/INR EORDER/INR 1 Y FU PROLIA/60MG EORDER/INR EORDER/INR Reason for Visit Wharton disease Osteoporosis Chief Complaint EORDER/INR 1 Y [...] Aortic stenosis April 29, 2024 10: 53am 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 (current) use of anticoagulant s April 29, [...] Aortic stenosis April 29, 2024 10: 53am [facility] (current) use of anticoagulant s April 29, [...] Aortic stenosis April 29, 2024 10: 53am 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 (current) use of anticoagulant s April 29, 2024 10:53am MVP (mitral valve prolapse) April 29, 2024 10:53am Chronic kidney disease, stage 3 April 292024 10:53am Essential (primary) hypertension April 202024 10:53am Hyperlipidemia April 29, 2024 10: 53am History of non-ST elevation myocardial i nfarction (NSTEMI) April 29, 2024 10:53am Aortic stenosis July 23, 2024 8:33a m [facility] (current) use of anticoagulant s July 23, [...] Aortic stenosis April 29, 2024 10: 53am 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 (current) use of anticoagulant s April 29, 2024 10:53am MVP (mitral valve prolapse) April 29, 2024 10:53am Chronic kidney disease, stage 3 April 292024 10:53am Essential (primary) hypertension April 202024 10:53am Hyperlipidemia April 29, 2024 10: 53am History of non-ST elevation myocardial i nfarction (NSTEMI) April 29, 2024 10:53am Aortic stenosis July 23, 2024 8:33a m 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 (current) use of anticoagulant s July 23, 2024 8:33am MVP (mitral valve prolapse) July 23 8:33am Chronic kidney disease, stage 3 July 8:33am Essential (primary) hypertension July 8:33am Hyperlipidemia July 23, 2024 8:33a m History of non-ST elevation myocardial i nfarction (NSTEMI) July 23, 2024 8:33am Acute cystitis without hematuria August 072024 8:16pm Acute hypotension August 07, 2024 8:16 pm Wharton's disease August 07, 2024 8:16 pm Aortic stenosis August 07, 2024 8:16 pm Aortic stenosis, severe August 07, 2024 8:16pm Complicated urinary tract infection August 07, 2024 8:16pm Dark stools August 07, 2024 8:16 pm Dehydration August 07, 2024 8:16 pm Elevated troponin August 07, 2024 8:16 pm Leukocytosis August 07, 2024 8:16 pm 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 (current) use of anticoagulant s August 07, [...] Aortic stenosis April 29, 2024 10: 53am 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 (current) use of anticoagulant s April 29, 2024 10:53am MVP (mitral valve prolapse) April 29, 2024 10:53am Chronic kidney disease, stage 3 April 292024 10:53am Essential (primary) hypertension April 202024 10:53am Hyperlipidemia April 29, 2024 10: 53am History of non-ST elevation myocardial i nfarction (NSTEMI) April 29, 2024 10:53am Aortic stenosis July 23, 2024 8:33a m 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 (current) use of anticoagulant s July 23, 2024 8:33am MVP (mitral valve prolapse) July 23 8:33am Chronic kidney disease, stage 3 July 8:33am Essential (primary) hypertension July 8:33am Hyperlipidemia July 23, 2024 8:33a m History of non-ST elevation myocardial i nfarction (NSTEMI) July 23, 2024 8:33am Acute cystitis without hematuria August 072024 8:16pm Acute hypotension August 07, 2024 8:16 pm Wharton's disease August 07, 2024 8:16 pm Aortic stenosis August 07, 2024 8:16 pm Aortic stenosis, severe August 07, 2024 8:16pm Bradycardia August 07, 2024 8:16 pm Complicated urinary tract infection August 07, 2024 8:16pm Dark stools August 07, 2024 8:16 pm Dehydration August 07, 2024 8:16 pm Elevated troponin August 07, 2024 8:16 pm Leukocytosis August 07, 2024 8:16 pm [facility] (current) use of anticoagulant s August 07, [...] Chronic kidney disease, stage 3 July 8:33am [facility] (current) use of anticoagulant s July 23, [...] pm Sepsis August 07, 2024 8:16 pm Wharton's disease August 07, 2024 8:16 pm Aortic stenosis August 07, 2024 8:16 pm Aortic stenosis, severe August 07, 2024 8:16pm Chronic kidney disease, stage 3 July 8:16pm [facility] (current) use of anticoagulant s August 07, [...] Chronic kidney disease, stage 3 July 8:33am [facility] (current) use of anticoagulant s July 23, [...] Chronic kidney disease, stage 3 July 8:16pm [facility] (current) use of anticoagulant s August 07, 2024 8:16pm MVP (mitral valve prolapse) August 07, 8:16pm Overweight (BMI 25.0-29.9) August 07 8:16pm S/P TAVR (transcatheter aortic valve rep lacement) November 14, 2024 8:57am Essential (primary) hypertension 2024 8:57am Hyperlipidemia November 14, 2024 8:57am History of non-ST elevation myocardial infarction (NSTEMI) November 14, 2024 8:57am Chronic kidney disease, stage 3 2024 8:57am [facility] (current) use of anticoagulant s November 14, [...] Chronic kidney disease, stage 3 2024 8:57am [facility] (current) use of anticoagulant s November 14, [...] HIGH COMPLEX 45 MINS Amos Floyd MD [address] [place] [id number] [facility] [address] [address] Referral ID Status Reason Start Date Expiration Date Visits Requested Visits Authorized [id number] Authorized Auto-Generat ed Referral 10/26/2022 02/19/2023 1 1 Specialty Diagnoses / Procedures Referred By Cailinac t Referred To Contact XR IMAGING Diagnoses Hip pain, unspecified laterality Procedures XR HIP BILATERAL 5V PEL/AP/LAT EACH HIP RADEX HIPS BILATERAL WITH PELVIS MINIMUM 5 VIEWS Amos Floyd MD [address] [place] [address] [place] [address] Referral ID Status Reason Start Date Expiration Date V isits Requested Visits Authorized [id number] Closed Auto-Generate d Referral 10/26/2022 11/25/2023 1 1 Specialty Diagnoses / Procedures Referred By Contac t Referred To Contact [facility] Diagnoses Pain of left hip Procedures PT REHAB FOLLOW UP ORDER THERAPEUTIC EXERCISES RE, EA 15 MIN. Pt [facility] [address] [place] [address] [facility] [place] [address] [place] [address] Referral ID Status Reason Start Date Expiration Date Visits Requested Visits Authorized [id number] Pending Review PCP Requested Referral Auto-Generate d Referral 11/01/2022 01/30/2023 1 1 Specialty Diagnoses / Procedures Referred By Contac t Referred To Contact Podiatry Diagnoses Foot pain, right Procedures CONSULT TO PODIATRY OFFICE/OUTPATIENT [facility] MDM 60-74 MINUTES Jacinda Enriquez, WAREHOUSE PACKER.SUPPLY PERSON [address] [place] [address] Referral ID Status Reason Start Date Expiration Date Visits Requested Visits Authorized [id number] Authorized PCP Requested Referral 11/08/2022 11/08/2023 1 1 Specialty Diagnoses / Procedures Referred By Contac t Referred To Contact XR IMAGING Diagnoses Foot pain, right Procedures XR FOOT GENERAL 3V AP/LAT/OBL RIGHT RADEX FOOT COMPLETE MINIMUM 3 VIEWS Jacinda Enriquez, WAREHOUSE PACKER.SUPPLY PERSON [address] [place] [address] [place] [address] Referral ID Status Reason Start Date Expiration Date V isits Requested Visits Authorized [id number] Closed Auto-Generate d Referral 11/08/2022 12/08/2023 1 1 Specialty Diagnoses / Procedures Referred By Contac t Referred To Contact [facility] Diagnoses Physical deconditioning Muscle weakness Gait abnormality Procedures CONSULT TO PHYSICAL THERAPY PHYSICAL THERAPY EVALUATION HIGH COMPLEX 45 MINS Rocio Elizalde, WAREHOUSE PACKER.SUPPLY PERSON [address] [place] [address] [facility] [place] [address] [place] [address] Referral ID Status Reason Start Date Expiration Date Visits Requested Visits Authorized [id number] Pending Review Auto-Generat ed Referral 05/31/2023 05/30/2024 1 1 Specialty Diagnoses / Procedures Referred By Contac t Referred To Contact CT IMAGING Diagnoses Nodule of lower lobe of right lung Procedures CT CHEST WO IVCON DIAGNOSTIC COMPUTED TOMOGRAPHY THORAX W/O Amos Bill MD [address] [place] [address] [place] [address] Referral ID Status Reason Start Date Expiration Date Visits Requested Visits Authorized [id number] New Request Auto-Generat ed Referral 02/13/2025 1 1 Additional Source Comments INFORMATION SOURCE (unrecogn ized section and content) DATE CREATED AUTHOR 08/15/2017 [facility] DATE CREATED AUTHOR AUTHOR'S ORGANIZ ATION 04/29/2020 [facility] DATE CREATED AUTHOR AUTHOR'S ORGANIZ ATION 05/27/2020 [facility] DATE CREATED AUTHOR AUTHOR'S ORGANIZ ATION 05/25/2023 [facility] DATE CREATED AUTHOR AUTHOR'S ORGANIZ ATION 06/13/2023 [facility] DATE CREATED AUTHOR AUTHOR'S ORGANIZ ATION 09/24/2024 [facility] DATE CREATED AUTHOR AUTHOR'S ORGANIZ ATION 11/03/2024 [facility] DATE CREATED AUTHOR AUTHOR'S ORGANIZ ATION 12/19/2024 [facility] DATE CREATED AUTHOR AUTHOR'S ORGANIZ ATION 12/19/2024 [facility] Goals (unrecognized section [...] or prosecute any alcohol or drug abuse patient.[facility] the event this information is protected by the Federal Confidentiality of Alcohol and Drug Abuse Patient Records regulations: The Federal rules restrict any use of the information to criminally investigate or prosecute any alcohol or drug abuse patient.[facility] Hospital[facility] the event this information is protected by the Federal Confidentiality of Alcohol and Drug Abuse Patient Records regulations: The Federal rules restrict any use of the information to criminally investigate or prosecute any alcohol or drug abuse patient.[facility] Hospital[facility] the event this information is protected by the Federal Confidentiality of Alcohol and Drug Abuse Patient Records regulations: The Federal rules restrict any use of the information to criminally investigate or prosecute any alcohol or drug abuse patient.[facility] the event this information is protected by the Federal Confidentiality of Alcohol and Drug Abuse Patient Records regulations: The Federal rules restrict any use of the information to criminally investigate or prosecute any alcohol or drug abuse patient.[facility] Hospital[facility] the event this information is protected by the Federal Confidentiality of Alcohol and Drug Abuse Patient Records regulations: The Federal rules restrict any use of the information to criminally investigate or prosecute any alcohol or drug abuse patient.[facility] Hospital[facility] the event this information is protected by the Federal Confidentiality of Alcohol and Drug Abuse Patient Records regulations: The Federal rules restrict any use of the information to criminally investigate or prosecute any alcohol or drug abuse patient.[facility] Hospital[facility] the event this information is protected by the Federal Confidentiality of Alcohol and Drug Abuse Patient Records regulations: The Federal rules restrict any use of the information to criminally investigate or prosecute any alcohol or drug abuse patient.[facility] HospitalIn the event this information is protected by the Federal Confidentiality of Alcohol and Drug Abuse Patient Records regulations: The Federal rules restrict any use of the information to criminally investigate or prosecute any alcohol or drug abuse patient.[facility] HospitalIn the event this information is protected by the Federal Confidentiality of Alcohol and Drug Abuse Patient Records regulations: The Federal rules restrict any use of the information to criminally investigate or prosecute any alcohol or drug abuse patient.[facility] Hospital[facility] the event this information is protected by the Federal Confidentiality of Alcohol and Drug Abuse Patient Records regulations: The Federal rules restrict any use of the information to criminally investigate or prosecute any alcohol or drug abuse patient.[facility] Hospital[facility] the event this information is protected by the Federal Confidentiality of Alcohol and Drug Abuse Patient Records regulations: The Federal rules restrict any use of the information to criminally investigate or prosecute any alcohol or drug abuse patient.[facility] Hospital[facility] the event this information is protected by the Federal Confidentiality of Alcohol and Drug Abuse Patient Records regulations: The Federal rules restrict any use of the information to criminally investigate or prosecute any alcohol or drug abuse patient.[facility] HospitalIn the event this information is protected by the Federal Confidentiality of Alcohol and Drug Abuse Patient Records regulations: The Federal rules restrict any use of the information to criminally investigate or prosecute any alcohol or drug abuse patient.[facility] HospitalIn the event this information is protected by the Federal Confidentiality of Alcohol and Drug Abuse Patient Records regulations: The Federal rules restrict any use of the information to criminally investigate or prosecute any alcohol or drug abuse patient.[facility] HospitalIn the event this information is protected by the Federal Confidentiality of Alcohol and Drug Abuse Patient Records regulations: The Federal rules restrict any use of the information to criminally investigate or prosecute any alcohol or drug abuse patient.[facility] HospitalIn the event this information is protected by the Federal Confidentiality of Alcohol and Drug Abuse Patient Records regulations: The Federal rules restrict any use of the information to criminally investigate or prosecute any alcohol or drug abuse patient.[facility] HospitalIn the event this information is protected by the Federal Confidentiality of Alcohol and Drug Abuse Patient Records regulations: The Federal rules restrict any use of the information to criminally investigate or prosecute any alcohol or drug abuse patient.[facility] HospitalIn the event this information is protected by the Federal Confidentiality of Alcohol and Drug Abuse Patient Records regulations: The Federal rules restrict any use of the information to criminally investigate or prosecute any alcohol or drug abuse patient.[facility] HospitalIn the event this information is protected by the Federal Confidentiality of Alcohol and Drug Abuse Patient Records regulations: The Federal rules restrict any use of the information to criminally investigate or prosecute any alcohol or drug abuse patient.[facility] HospitalIn the event this information is protected by the Federal Confidentiality of Alcohol and Drug Abuse Patient Records regulations: The Federal rules restrict any use of the information to criminally investigate or prosecute any alcohol or drug abuse patient.[facility] HospitalIn the event this information is protected by the Federal Confidentiality of Alcohol and Drug Abuse Patient Records regulations: The Federal rules restrict any use of the information to criminally investigate or prosecute any alcohol or drug abuse patient.[facility] HospitalIn the event this information is protected by the Federal Confidentiality of Alcohol and Drug Abuse Patient Records regulations: The Federal rules restrict any use of the information to criminally investigate or prosecute any alcohol or drug abuse patient.[facility] HospitalIn the event this information is protected by the Federal Confidentiality of Alcohol and Drug Abuse Patient Records regulations: The Federal rules restrict any use of the information to criminally investigate or prosecute any alcohol or drug abuse patient.[facility] HospitalIn the event this information is protected by the Federal Confidentiality of Alcohol and Drug Abuse Patient Records regulations: The Federal rules restrict any use of the information to criminally investigate or prosecute any alcohol or drug abuse patient.[facility] HospitalIn the event this information is protected by the Federal Confidentiality of Alcohol and Drug Abuse Patient Records regulations: The Federal rules restrict any use of the information to criminally investigate or prosecute any alcohol or drug abuse patient.[facility] HospitalIn the event this information is protected by the Federal Confidentiality of Alcohol and Drug Abuse Patient Records regulations: The Federal rules restrict any use of the information to criminally investigate or prosecute any alcohol or drug abuse patient.[facility] HospitalIn the event this information is protected by the Federal Confidentiality of Alcohol and Drug Abuse Patient Records regulations: The Federal rules restrict any use of the information to criminally investigate or prosecute any alcohol or drug abuse patient.[facility] HospitalIn the event this information is protected by the Federal Confidentiality of Alcohol and Drug Abuse Patient Records regulations: The Federal rules restrict any use of the information to criminally investigate or prosecute any alcohol or drug abuse patient.[facility] HospitalIn the event this information is protected by the Federal Confidentiality of Alcohol and Drug Abuse Patient Records regulations: The Federal rules restrict any use of the information to criminally investigate or prosecute any alcohol or drug abuse patient.[facility] HospitalIn the event this information is protected by the Federal Confidentiality of Alcohol and Drug Abuse Patient Records regulations: The Federal rules restrict any use of the information to criminally investigate or prosecute any alcohol or drug abuse patient.[facility] HospitalIn the event this information is protected by the Federal Confidentiality of Alcohol and Drug Abuse Patient Records regulations: The Federal rules restrict any use of the information to criminally investigate or prosecute any alcohol or drug abuse patient.[facility] HospitalIn the event this information is protected by the Federal Confidentiality of Alcohol and Drug Abuse Patient Records regulations: The Federal rules restrict any use of the information to criminally investigate or prosecute any alcohol or drug abuse patient.[facility] HospitalIn the event this information is protected by the Federal Confidentiality of Alcohol and Drug Abuse Patient Records regulations: The Federal rules restrict any use of the information to criminally investigate or prosecute any alcohol or drug abuse patient.[facility] HospitalIn the event this information is protected by the Federal Confidentiality of Alcohol and Drug Abuse Patient Records regulations: The Federal rules restrict any use of the information to criminally investigate or prosecute any alcohol or drug abuse patient.[facility] HospitalIn the event this information is protected by the Federal Confidentiality of Alcohol and Drug Abuse Patient Records regulations: The Federal rules restrict any use of the information to criminally investigate or prosecute any alcohol or drug abuse patient.[facility] HospitalIn the event this information is protected by the Federal Confidentiality of Alcohol and Drug Abuse Patient Records regulations: The Federal rules restrict any use of the information to criminally investigate or prosecute any alcohol or drug abuse patient.[facility] HospitalIn the event this information is protected by the Federal Confidentiality of Alcohol and Drug Abuse Patient Records regulations: The Federal rules restrict any use of the information to criminally investigate or prosecute any alcohol or drug abuse patient.[facility] HospitalIn the event this information is protected by the Federal Confidentiality of Alcohol and Drug Abuse Patient Records regulations: The Federal rules restrict any use of the information to criminally investigate or prosecute any alcohol or drug abuse patient.[facility] HospitalIn the event this information is protected by the Federal Confidentiality of Alcohol and Drug Abuse Patient Records regulations: The Federal rules restrict any use of the information to criminally investigate or prosecute any alcohol or drug abuse patient.[facility] HospitalIn the event this information is protected by the Federal Confidentiality of Alcohol and Drug Abuse Patient Records regulations: The Federal rules restrict any use of the information to criminally investigate or prosecute any alcohol or drug abuse patient.[facility] HospitalIn the event this information is protected by the Federal Confidentiality of Alcohol and Drug Abuse Patient Records regulations: The Federal rules restrict any use of the information to criminally investigate or prosecute any alcohol or drug abuse patient.[facility] HospitalIn the event this information is protected by the Federal Confidentiality of Alcohol and Drug Abuse Patient Records regulations: The Federal rules restrict any use of the information to criminally investigate or prosecute any alcohol or drug abuse patient.[facility] HospitalIn the event this information is protected by the Federal Confidentiality of Alcohol and Drug Abuse Patient Records regulations: The Federal rules restrict any use of the information to criminally investigate or prosecute any alcohol or drug abuse patient.[facility] HospitalIn the event this information is protected by the Federal Confidentiality of Alcohol and Drug Abuse Patient Records regulations: The Federal rules restrict any use of the information to criminally investigate or prosecute any alcohol or drug abuse patient.[facility] HospitalIn the event this information is protected by the Federal Confidentiality of Alcohol and Drug Abuse Patient Records regulations: The Federal rules restrict any use of the information to criminally investigate or prosecute any alcohol or drug abuse patient.[facility] HospitalIn the event this information is protected by the Federal Confidentiality of Alcohol and Drug Abuse Patient Records regulations: The Federal rules restrict any use of the information to criminally investigate or prosecute any alcohol or drug abuse patient.[facility] HospitalIn the event this information is protected by the Federal Confidentiality of Alcohol and Drug Abuse Patient Records regulations: The Federal rules restrict any use of the information to criminally investigate or prosecute any alcohol or drug abuse patient.[facility] HospitalIn the event this information is protected by the Federal Confidentiality of Alcohol and Drug Abuse Patient Records regulations: The Federal rules restrict any use of the information to criminally investigate or prosecute any alcohol or drug abuse patient.[facility] HospitalIn the event this information is protected by the Federal Confidentiality of Alcohol and Drug Abuse Patient Records regulations: The Federal rules restrict any use of the information to criminally investigate or prosecute any alcohol or drug abuse patient.[facility] HospitalIn the event this information is protected by the Federal Confidentiality of Alcohol and Drug Abuse Patient Records regulations: The Federal rules restrict any use of the information to criminally investigate or prosecute any alcohol or drug abuse patient.[facility] HospitalIn the event this information is protected by the Federal Confidentiality of Alcohol and Drug Abuse Patient Records regulations: The Federal rules restrict any use of the information to criminally investigate or prosecute any alcohol or drug abuse patient.[facility] HospitalIn the event this information is protected by the Federal Confidentiality of Alcohol and Drug Abuse Patient Records regulations: The Federal rules restrict any use of the information to criminally investigate or prosecute any alcohol or drug abuse patient.[facility] HospitalIn the event this information is protected by the Federal Confidentiality of Alcohol and Drug Abuse Patient Records regulations: The Federal rules restrict any use of the information to criminally investigate or prosecute any alcohol or drug abuse patient.[facility] HospitalIn the event this information is protected by the Federal Confidentiality of Alcohol and Drug Abuse Patient Records regulations: The Federal rules restrict any use of the information to criminally investigate or prosecute any alcohol or drug abuse patient.[facility] HospitalIn the event this information is protected by the Federal Confidentiality of Alcohol and Drug Abuse Patient Records regulations: The Federal rules restrict any use of the information to criminally investigate or prosecute any alcohol or drug abuse patient.[facility] HospitalIn the event this information is protected by the Federal Confidentiality of Alcohol and Drug Abuse Patient Records regulations: The Federal rules restrict any use of the information to criminally investigate or prosecute any alcohol or drug abuse patient.[facility] HospitalIn the event this information is protected by the Federal Confidentiality of Alcohol and Drug Abuse Patient Records regulations: The Federal rules restrict any use of the information to criminally investigate or prosecute any alcohol or drug abuse patient.[facility] HospitalIn the event this information is protected by the Federal Confidentiality of Alcohol and Drug Abuse Patient Records regulations: The Federal rules restrict any use of the information to criminally investigate or prosecute any alcohol or drug abuse patient.[facility] HospitalIn the event this information is protected by the Federal Confidentiality of Alcohol and Drug Abuse Patient Records regulations: The Federal rules restrict any use of the information to criminally investigate or prosecute any alcohol or drug abuse patient.[facility] HospitalIn the event this information is protected by the Federal Confidentiality of Alcohol and Drug Abuse Patient Records regulations: The Federal rules restrict any use of the information to criminally investigate or prosecute any alcohol or drug abuse patient.[facility] HospitalIn the event this information is protected by the Federal Confidentiality of Alcohol and Drug Abuse Patient Records regulations: The Federal rules restrict any use of the information to criminally investigate or prosecute any alcohol or drug abuse patient.[facility] HospitalIn the event this information is protected by the Federal Confidentiality of Alcohol and Drug Abuse Patient Records regulations: The Federal rules restrict any use of the information to criminally investigate or prosecute any alcohol or drug abuse patient.[facility] HospitalIn the event this information is protected by the Federal Confidentiality of Alcohol and Drug Abuse Patient Records regulations: The Federal rules restrict any use of the information to criminally investigate or prosecute any alcohol or drug abuse patient.[facility] HospitalIn the event this information is protected by the Federal Confidentiality of Alcohol and Drug Abuse Patient Records regulations: The Federal rules restrict any use of the information to criminally investigate or prosecute any alcohol or drug abuse patient.[facility] HospitalIn the event this information is protected by the Federal Confidentiality of Alcohol and Drug Abuse Patient Records regulations: The Federal rules restrict any use of the information to criminally investigate or prosecute any alcohol or drug abuse patient.[facility] HospitalIn the event this information is protected by the Federal Confidentiality of Alcohol and Drug Abuse Patient Records regulations: The Federal rules restrict any use of the information to criminally investigate or prosecute any alcohol or drug abuse patient.[facility] HospitalIn the event this information is protected by the Federal Confidentiality of Alcohol and Drug Abuse Patient Records regulations: The Federal rules restrict any use of the information to criminally investigate or prosecute any alcohol or drug abuse patient.[facility] HospitalIn the event this information is protected by the Federal Confidentiality of Alcohol and Drug Abuse Patient Records regulations: The Federal rules restrict any use of the information to criminally investigate or prosecute any alcohol or drug abuse patient.[facility] HospitalIn the event this information is protected by the Federal Confidentiality of Alcohol and Drug Abuse Patient Records regulations: The Federal rules restrict any use of the information to criminally investigate or prosecute any alcohol or drug abuse patient.[facility] HospitalIn the event this information is protected by the Federal Confidentiality of Alcohol and Drug Abuse Patient Records regulations: The Federal rules restrict any use of the information to criminally investigate or prosecute any alcohol or drug abuse patient.[facility] HospitalIn the event this information is protected by the Federal Confidentiality of Alcohol and Drug Abuse Patient Records regulations: The Federal rules restrict any use of the information to criminally investigate or prosecute any alcohol or drug abuse patient.[facility] HospitalIn the event this information is protected by the Federal Confidentiality of Alcohol and Drug Abuse Patient Records regulations: The Federal rules restrict any use of the information to criminally investigate or prosecute any alcohol or drug abuse patient.[facility] HospitalIn the event this information is protected by the Federal Confidentiality of Alcohol and Drug Abuse Patient Records regulations: The Federal rules restrict any use of the information to criminally investigate or prosecute any alcohol or drug abuse patient.[facility] HospitalIn the event this information is protected by the Federal Confidentiality of Alcohol and Drug Abuse Patient Records regulations: The Federal rules restrict any use of the information to criminally investigate or prosecute any alcohol or drug abuse patient.[facility] HospitalIn the event this information is protected by the Federal Confidentiality of Alcohol and Drug Abuse Patient Records regulations: The Federal rules restrict any use of the information to criminally investigate or prosecute any alcohol or drug abuse patient.[facility] HospitalIn the event this information is protected by the Federal Confidentiality of Alcohol and Drug Abuse Patient Records regulations: The Federal rules restrict any use of the information to criminally investigate or prosecute any alcohol or drug abuse patient.[facility] HospitalIn the event this information is protected by the Federal Confidentiality of Alcohol and Drug Abuse Patient Records regulations: The Federal rules restrict any use of the information to criminally investigate or prosecute any alcohol or drug abuse patient.[facility] HospitalIn the event this information is protected by the Federal Confidentiality of Alcohol and Drug Abuse Patient Records regulations: The Federal rules restrict any use of the information to criminally investigate or prosecute any alcohol or drug abuse patient.[facility] HospitalIn the event this information is protected by the Federal Confidentiality of Alcohol and Drug Abuse Patient Records regulations: The Federal rules restrict any use of the information to criminally investigate or prosecute any alcohol or drug abuse patient.[facility] HospitalIn the event this information is protected by the Federal Confidentiality of Alcohol and Drug Abuse Patient Records regulations: The Federal rules restrict any use of the information to criminally investigate or prosecute any alcohol or drug abuse patient.[facility] HospitalIn the event this information is protected by the Federal Confidentiality of Alcohol and Drug Abuse Patient Records regulations: The Federal rules restrict any use of the information to criminally investigate or prosecute any alcohol or drug abuse patient.[facility] HospitalIn the event this information is protected by the Federal Confidentiality of Alcohol and Drug Abuse Patient Records regulations: The Federal rules restrict any use of the information to criminally investigate or prosecute any alcohol or drug abuse patient.[facility] HospitalIn the event this information is protected by the Federal Confidentiality of Alcohol and Drug Abuse Patient Records regulations: The Federal rules restrict any use of the information to criminally investigate or prosecute any alcohol or drug abuse patient.[facility] HospitalIn the event this information is protected by the Federal Confidentiality of Alcohol and Drug Abuse Patient Records regulations: The Federal rules restrict any use of the information to criminally investigate or prosecute any alcohol or drug abuse patient.[facility] HospitalIn the event this information is protected by the Federal Confidentiality of Alcohol and Drug Abuse Patient Records regulations: The Federal rules restrict any use of the information to criminally investigate or prosecute any alcohol or drug abuse patient.[facility] HospitalIn the event this information is protected by the Federal Confidentiality of Alcohol and Drug Abuse Patient Records regulations: The Federal rules restrict any use of the information to criminally investigate or prosecute any alcohol or drug abuse patient.[facility] HospitalIn the event this information is protected by the Federal Confidentiality of Alcohol and Drug Abuse Patient Records regulations: The Federal rules restrict any use of the information to criminally investigate or prosecute any alcohol or drug abuse patient.[facility]In the event this information is protected by the Federal Confidentiality of Alcohol and Drug Abuse Patient Records regulations: The Federal rules restrict any use of the information to criminally investigate or prosecute any alcohol or drug abuse patient.[facility] HospitalIn the event this information is protected by the Federal Confidentiality of Alcohol and Drug Abuse Patient Records regulations: The Federal rules restrict any use of the information to criminally investigate or prosecute any alcohol or drug abuse patient.[facility] HospitalIn the event this information is protected by the Federal Confidentiality of Alcohol and Drug Abuse Patient Records regulations: The Federal rules restrict any use of the information to criminally investigate or prosecute any alcohol or drug abuse patient.[facility]In the event this information is protected by the Federal Confidentiality of Alcohol and Drug Abuse Patient Records regulations: The Federal rules restrict any use of the information to criminally investigate or prosecute any alcohol or drug abuse patient.[facility] HospitalIn the event this information is protected by the Federal Confidentiality of Alcohol and Drug Abuse Patient Records regulations: The Federal rules restrict any use of the information to criminally investigate or prosecute any alcohol or drug abuse patient.[facility]In the event this information is protected by the Federal Confidentiality of Alcohol and Drug Abuse Patient Records regulations: The Federal rules restrict any use of the information to criminally investigate or prosecute any alcohol or drug abuse patient.[facility]In the event this information is protected by the Federal Confidentiality of Alcohol and Drug Abuse Patient Records regulations: The Federal rules restrict any use of the information to criminally investigate or prosecute any alcohol or drug abuse patient.[facility]In the event this information is protected by the Federal Confidentiality of Alcohol and Drug Abuse Patient Records regulations: The Federal rules restrict any use of the information to criminally investigate or prosecute any alcohol or drug abuse patient.[facility]In the event this information is protected by the Federal Confidentiality of Alcohol and Drug Abuse Patient Records regulations: The Federal rules restrict any use of the information to criminally investigate or prosecute any alcohol or drug abuse patient.[facility]In the event this information is protected by the Federal Confidentiality of Alcohol and Drug Abuse Patient Records regulations: The Federal rules restrict any use of the information to criminally investigate or prosecute any alcohol or drug abuse patient.[facility] HospitalIn the event this information is protected by the Federal Confidentiality of Alcohol and Drug Abuse Patient Records regulations: The Federal rules restrict any use of the information to criminally investigate or prosecute any alcohol or drug abuse patient.[facility] HospitalIn the event this information is protected by the Federal Confidentiality of Alcohol and Drug Abuse Patient Records regulations: The Federal rules restrict any use of the information to criminally investigate or prosecute any alcohol or drug abuse patient.[facility] the event this information is protected by the Federal Confidentiality of Alcohol and Drug Abuse Patient Records regulations: The Federal rules restrict any use of the information to criminally investigate or prosecute any alcohol or drug abuse patient.[facility] Reason for Visit (unrecogniz ed section [...] COMPLEX 45 MINS Amos Floyd MD [address] [place] [address] [facility] [address] [address] Referral ID Status Reason Start Date Expiration Date Visits Requested Visits Authorized [id number] Authorized Auto-Generat ed Referral 02/20/2023 02/20/2024 99 [...] up Reason Comments Patient Question Reason Comments Epic Ambulatory Analyst - Other Reason Onset Date Comments Refill Request 09/19/2022 Reason Onset Date Comments Left Hip Pain Immunizations 10/26/2022 Flu vaccination Reason Comments PT Eval Specialty Diagnoses / Procedures Referred By Contac t Referred To Contact [facility] Diagnoses Hip pain, unspecified laterality Procedures CONSULT TO PHYSICAL THERAPY PHYSICAL THERAPY EVALUATION HIGH COMPLEX 45 MINS Amos Floyd MD [address] [place] [address] [facility] [address] [address] Referral ID Status Reason Start Date Expiration Date V isits Requested Visits Authorized [id number] Closed Auto-Generate d Referral 10/26/2022 02/19/2023 1 1 Reason Comments Pain (foot) Right side of R foot x 2 days Reason Comments Refill Request Reason Comments Established Patient Follow Up Reason Comments Medicare Wellness Exam F/U 6 months Reason Comments PT Eval Reason Comments Patient Update Reason Comments ED Follow-up [facility] ER Specialty Diagnoses / Procedures Referred By Contac t Referred To Contact Diagnoses Hypercalcemia Addisons Disease Procedures ER OBSERVATION Elisa Mcdonough MD [address] [place] [id number] [address] [place] [address] Referral ID Status Reason Start Date Expiration Date Visits Re quested Visits Authorized [id number] 1 1 Reason Comments Clinical Update Reason [...] TOMOGRAPHY THORAX W/O Amos Bill MD [address] [place] [address] [place] [address] Referral ID Status Reason Start Date Expiration Date V isits Requested Visits Authorized [id number] Closed Auto-Generate d Referral 01/15/2024 02/13/2025 1 [...] NEW HIGH MDM 60 MINUTES Rocio Elizalde, WAREHOUSE PACKER.SUPPLY PERSON [address] [place] [address] Phone: tel: fax: Referral ID Status Reason Start Date Expiration Date V isits Requested Visits Authorized [id number] Closed PCP Requested Referral 09/13/2024 09/13/2025 1 1 Reason Comments Consult Reason Comments Follow-up Reason Comments 2 month follow-up Reason Comments Cardiac Valve Problem Hospital Follow-up Reason Onset Date Comments Procedure 10/10/2024 Reason Comments Cardiac Valve Problem Care Teams (unrecognized sec tion and content) Oil Dipper Relationship Specialty Start Date End Date Amos Floyd MD [address] [place] [address] PCP - General 04/16/04 Oil Dipper Relationship Specialty Start Date End Date Amos Floyd MD [address] [place] [address] PCP - General 04/16/04 Oil Dipper Relationship Specialty Start Date End Date Amos Floyd MD [facility] [place] [address] PCP - General 04/16/04 Oil Dipper Relationship Specialty Start Date End Date Aoms Floyd MD [address] [place] [address], [place] [address] PCP - General 04/16/04 Oil Dipper Relationship Specialty Start Date End Date Amos Floyd MD [facility] [place] [address] PCP - General 04/16/04 Oil Dipper Relationship Specialty Start Date End Date Amos Floyd MD [facility] [place] [address] PCP - General 04/16/04 Oil Dipper Relationship Specialty Start Date End Date Amos Floyd MD [facility] [place] [address] PCP - General 04/16/04 Oil Dipper Relationship Specialty Start Date End Date Amos Floyd MD [facility] [place] [address] PCP - General 04/16/04 Oil Dipper Relationship Specialty Start Date End Date Amos Floyd MD [address] [place] [address], [place] [address] PCP - General 04/16/04 Oil Dipper Relationship Specialty Start Date End Date Amos Floyd MD [address] [place] [address] PCP - General 04/16/04 Oil Dipper Relationship Specialty Start Date End Date Amos Floyd MD [address] [place] [address] PCP - General 04/16/04 Oil Dipper Relationship Specialty Start Date End Date Amos Floyd MD [address] [place] [address] PCP - General 04/16/04 Oil Dipper Relationship Specialty Start Date End Date Amos Floyd MD [address] [place] [address] PCP - General 04/16/04 Team Status: Active [...] Active Basim DISLA, PA Attending Provider Active Oil Dipper Relationship Specialty Start Date End Date Amos Floyd MD [address] [place] [address] PCP - General 04/16/04 Oil Dipper Relationship Specialty Start Date End Date Amos Floyd MD [address] [place] [address] PCP - General 04/16/04 Team Status: Inactive [...] PA Attending Provider, Referr ing Provider Active Oil Dipper Relationship Specialty Start Date End Date Amos Floyd MD [address] [place] [address] PCP - General 04/16/04 Oil Dipper Relationship Specialty Start Date End Date Amos Floyd MD [address] [place] [address] PCP - General 04/16/04 Oil Dipper Relationship Specialty Start Date End Date Amos Floyd MD [address] [place] [address] PCP - General 04/16/04 Oil Dipper Relationship Specialty Start Date End Date Amos Floyd MD [address] [place] [address] PCP - General 04/16/04 Oil Dipper Relationship Specialty Start Date End Date Amos Floyd MD [address] [place] [address] PCP - General 04/16/04 Team Status: Inactive Member Role Status Dates Dr. Amos Floyd MD Primary Care Provider Active Dr. Jordan Marte MD Other Provider Active Basim Velasquez PA, PA Attending Provider, Referr ing Provider Active Dr. Torsten Vann MD Other Provider Active Dr. Jennifer Tarango DO Other Provider Active Oil Dipper Relationship Specialty Start Date End Date Amos Floyd MD [address] [place] [address] PCP - General 04/16/04 Oil Dipper Relationship Specialty Start Date End Date Amos Floyd MD [address] [place] [address] PCP - General 04/16/04 Oil Dipper Relationship Specialty Start Date End Date Amos Floyd MD [address] [place] [address] PCP - General 04/16/04 Team Status: Inactive Member Role Status Dates Dr. Amos Floyd MD Primary Care Provider, Refer ring Provider Active Ryan Ji E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, E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 Attending Provider Active Oil Dipper Relationship Specialty Start Date End Date Amos Floyd MD [address] [place] [address] PCP - General 04/16/04 Oil Dipper Relationship Specialty Start Date End Date Amos Floyd MD [address] [place] [address] PCP - General 04/16/04 Team Status: Active [...] MD Primary Care Provider Active Ryan Ji E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, E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 Attending Provider, Referring Pro vider Active Oil Dipper Relationship Specialty Start Date End Date Amos Floyd MD [address] [place] [address] PCP - General 04/16/04 Team Status: Inactive Member Role Status Dates Dr. Amos Floyd MD Primary Care Provider Active Dr. Juan Alberto Mcclendon MD Emergency Provider Active Oil Dipper Relationship Specialty Start Date End Date Amos Floyd MD [address] [place] [address] PCP - General 04/16/04 Oil Dipper Relationship Specialty Start Date End Date Amos Floyd MD [address] [place] [address] PCP - General 04/16/04 Oil Dipper Relationship Specialty Start Date End Date Amos Folyd MD [address] [place] [address] PCP - General 04/16/04 Team Status: Inactive Member Role Status Dates Dr. Amos Floyd MD Primary Care Provider Active Dr. Juan Alberto Mcclendon MD Attending Provider, Emergency Provider Active Team Status: Inactive Member Role Status Dates Dr. Amos Floyd MD Primary Care Provider Active Dr. Ankush Noguera DO Emergency Provider Active Oil Dipper Relationship Specialty Start Date End Date Amos Floyd MD [address] [place] [address] PCP - General 04/16/04 Oil Dipper Relationship Specialty Start Date End Date Amos Floyd MD [address] [place] [address] PCP - General 04/16/04 Oil Dipper Relationship Specialty Start Date End Date Amos Floyd MD [address] [place] [address] PCP - General 05/01/20 Team Status: Inactive Member Role Status Dates Dr. Amos Floyd MD Primary Care Provider Active Dr. Ankush Noguera DO Attending Provider, Emergency Provider Active Team Status: Inactive Member Role Status Dates Dr. Amos Floyd MD Primary Care Provider Active Rocio E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, Fide Attending Provider, Referring Prov ider Active Oil Dipper Relationship Specialty Start Date End Date Amos Floyd MD [address] [place] [address] PCP - General 04/16/04 Oil Dipper Relationship Specialty Start Date End Date Amos Floyd MD [address] [place], [place] [address] PCP - General 04/16/04 Oil Dipper Relationship Specialty Start Date End Date Amos Floyd MD [address] [place] [address] PCP - General 04/16/04 Oil Dipper Relationship Specialty Start Date End Date Amos Floyd MD [address] [place] [address] PCP - General 04/16/04 Oil Dipper Relationship Specialty Start Date End Date Amos Floyd MD [address] [place] [address] PCP - General 04/16/04 Oil Dipper Relationship Specialty Start Date End Date mAos Floyd MD [address] [place] [address] PCP - General 04/16/04 Oil Dipper Relationship Specialty Start Date End Date Amos Floyd MD [address] [place] [address] PCP - General 04/16/04 Oil Dipper Relationship Specialty Start Date End Date Amos Floyd MD [address] [place] [address] PCP - General 04/16/04 Oil Dipper Relationship Specialty Start Date End Date Amos Floyd MD [address] [place] [address] PCP - General 04/16/04 Oil Dipper Relationship Specialty Start Date End Date Amos Floyd MD [address] [place] [address] PCP - General 04/16/04 Oil Dipper Relationship Specialty Start Date End Date Amos Floyd MD [address] [place] [address] PCP - General 04/16/04 Oil Dipper Relationship Specialty Start Date End Date Amos Floyd MD [address] [place] [address] PCP - General 04/16/04 Oil Dipper Relationship Specialty Start Date End Date Amos Floyd MD [address] [place] [address] PCP - General 04/16/04 Oil Dipper Relationship Specialty Start Date End Date Amos Floyd MD [address] [place] [address] PCP - General 04/16/04 Oil Dipper Relationship Specialty Start Date End Date Amos Floyd MD [address] [place] [address] PCP - General 04/16/04 Oil Dipper Relationship Specialty Start Date End Date Amos Floyd MD [address] [place] [address] PCP - General 04/16/04 Rocio Elizalde, WAREHOUSE PACKER.SUPPLY PERSON [address] [place] [address] Ham Stripper Internal Medicine 01/29/24 Oil Dipper Relationship Specialty Start Date End Date Amos Floyd MD [address] [place] [address] PCP - General 04/16/04 Rocio Elizalde, WAREHOUSE PACKER.SUPPLY PERSON [address] [place] [address] Ham Stripper Internal Medicine 01/29/24 Oil Dipper Relationship Specialty Start Date End Date Amos Floyd MD [address] [place] [address] PCP - General 04/16/04 Rocio Elizalde, WAREHOUSE PACKER.SUPPLY PERSON [address] [place] [address] Ham Stripper Internal Medicine 01/29/24 Oil Dipper Relationship Specialty Start Date End Date Amos Floyd MD [address] [place] [address] PCP - General 04/16/04 Rocio Elizalde, WAREHOUSE PACKER.SUPPLY PERSON [address] [place] [address] Ham Stripper Internal Medicine 01/29/24 Team Status: Active Member [...] Provider Active S tart: May 24, 2024 Oil Dipper Relationship Specialty Start Date End Date Amos Floyd MD [address] [place], [place] [address] PCP - General 04/16/04 Rocio Elizalde, WAREHOUSE PACKER.SUPPLY PERSON [address] [place], [place] [address] Ham Stripper Internal Medicine 01/29/24 Team Status: Inactive Member [...] 2024 End: July 23, 2024 Heaven Bolton E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, E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 Attending Provider Active Start: July 23, 2024 End: July 23, 2024 Oil Dipper Relationship Specialty Start Date End Date Amos Floyd MD [address] [place] [address] PCP - General 04/16/04 Rocio Elizalde, WAREHOUSE PACKER.SUPPLY PERSON [address] [place] [address] Ham Stripper Internal Medicine 01/29/24 Team Status: Inactive Member [...] Other Provider Active Start: August 09, 2024 Oil Dipper Relationship Specialty Start Date End Date Amos Floyd MD [address] [place] [address] PCP - General 04/16/04 Rocio Elizalde, WAREHOUSE PACKER.SUPPLY PERSON [address] [place] [address] Ham Stripper Internal Medicine 01/29/24 Annemarie Read, branch maker Release Engineer Pulmonary Disease 08/15/24 Oil Dipper Relationship Specialty Start Date End Date Amos Floyd MD [address] [place], [place] 170201 PCP - General 04/16/04 Rocio Elizalde, WAREHOUSE PACKER.SUPPLY PERSON [address] [place] [address] Ham Stripper Internal Medicine 01/29/24 Annemarie Read RN Primary Care Release Engineer Pulmonary Disease 08/15/24 Oil Dipper Relationship Specialty Start Date End Date Amos Floyd MD [address] [place] [address] PCP - General 04/16/04 Rocio Elizalde, WAREHOUSE PACKER.SUPPLY PERSON [address] [place] [address] Ham Stripper Internal Medicine 01/29/24 Annemarie Read RN Primary Care Release Engineer Pulmonary Disease 08/15/24 Oil Dipper Relationship Specialty Start Date End Date Amos Floyd MD [address] [place] [address] PCP - General 04/16/04 Rocio Elizalde, WAREHOUSE PACKER.SUPPLY PERSON [address] [place] [address] Ham Stripper Internal Medicine 01/29/24 Annemarie Read RN Primary Care Release Engineer Pulmonary Disease 08/15/24 Oil Dipper Relationship Specialty Start Date End Date Amos Floyd MD [address] [place] [address] PCP - General 04/16/04 Rocio Elizalde, WAREHOUSE PACKER.SUPPLY PERSON [address] [place] [address] Ham Stripper Internal Medicine 01/29/24 Annemarie Read RN Primary Care Release Engineer Pulmonary Disease 08/15/24 Oil Dipper Relationship Specialty Start Date End Date Amos Floyd [address] [place] [address] PCP - General Internal Medicine 09/03/24 Oil Dipper Relationship Specialty Start Date End Date Mariel Amos Gaitan [address] [place] [address] PCP - General Internal Medicine 09/03/24 Team [...] 2024 End: July 23, 2024 Heaven Bolton E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, E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 Attending Provider Active Start: July 23, 2024 [...] September 10, 2024 End: September 10, 2024 Oil Dipper Relationship Specialty Start Date End Date Amos Floyd MD [address] [place] [address] PCP - General 04/16/04 Rocio Elizalde, WAREHOUSE PACKER.SUPPLY PERSON [address] [place], [place] [address] Ham Stripper Internal Medicine 01/29/24 Oil Dipper Relationship Specialty Start Date End Date Amos Floyd [address] [place] [address] PCP - General Internal Medicine 09/03/24 Oil Dipper Relationship Specialty Start Date End Date Amos Floyd [address] [place] [address] PCP - General Internal Medicine 09/03/24 Oil Dipper Relationship Specialty Start Date End Date Amos Floyd MD [address] [place] [address] PCP - General 04/16/04 Rocio Elizalde, WAREHOUSE PACKER.SUPPLY PERSON [address] [place], [place] [address] Ham Stripper Internal Medicine 01/29/24 Oil Dipper Relationship Specialty Start Date End Date Amos Floyd [address] [place] [address] PCP - General Internal Medicine 09/03/24 Oil Dipper Relationship Specialty Start Date End Date Amos Floyd [address] [facility] [place] [address] PCP - General Internal Medicine 09/03/24 Oil Dipper Relationship Specialty Start Date End Date Amos Floyd [address] [facility] [place] [address] PCP - General Internal Medicine 09/03/24 Team [...] End: July 23, 2024 Heaven Bolton NP, E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 Attending Provider Active Start: July 23, 2024 [...] October 03, 2024 End: October 03, 2024 Oil Dipper Relationship Specialty Start Date End Date Amos Floyd [address] [place], [place] [address] PCP - General Internal Medicine 09/03/24 Oil Dipper Relationship Specialty Start Date End Date Amos Floyd [address] [place] [address] PCP - General Internal Medicine 09/03/24 Oil Dipper Relationship Specialty Start Date End Date Amos Floyd [address] [place] [address] PCP - General Internal Medicine 09/03/24 Team [...] 2024 End: July 23, 2024 Heaven Bolton E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, E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 Attending Provider Active Start: July 23, 2024 [...] October 15, 2024 End: October 15, 2024 Oil Dipper Relationship Specialty Start Date End Date Amos Floyd [address] [place] [address] PCP - General Internal Medicine 09/03/24 Oil Dipper Relationship Specialty Start Date End Date Amos Floyd [address] [place], [place] [address] PCP - General Internal Medicine 09/03/24 Oil Dipper Relationship Specialty Start Date End Date Amos Floyd MD [address] [place], [place] [address] PCP - General 04/16/04 Rocio Elizalde, WAREHOUSE PACKER.SUPPLY PERSON [address] [place] [address] Ham Stripper Internal Medicine 01/29/24 Oil Dipper Relationship Specialty Start Date End Date Amos Floyd [address] [place], [place] [address] PCP - General Internal Medicine 09/03/24 Oil Dipper Relationship Specialty Start Date End Date Amos Floyd [address] [place] [address] PCP - General Internal Medicine 09/03/24 Team Status: Active Member Role/Relationship Status Dates Dr. Amos Floyd MD Primary care physician Activ e Team Status: Inactive Member Role/Relationship Status Dates Dr. Amos Floyd MD Primary care physician Activ e Start: July 23, 2024 End: July 23, 2024 Dr. Amos Floyd MD Referring Provider Active Start: July 23, 2024 End: July 23, 2024 Heaven Bolton E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, E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 Attending physician Active Start: July 23, 2024 [...] November 14, 2024 End: November 14, 2024 Oil Dipper Relationship Specialty Start Date End Date Amos Floyd [address] [place] [address] PCP - General Internal Medicine 09/03/24 Oil Dipper Relationship Specialty Start Date End Date Amos Floyd [address] [place] [address] PCP - General Internal Medicine 09/03/24 Team [...] Referring Provider Active Start: December 10, 2024 Oil Dipper Relationship Specialty Start Date End Date FloydAmos hernandez Arnie [address] [place] [address] PCP - General Internal Medicine 09/03/24 Scheduled [...] minutes. 0458 (Given - Provider: Yevgeniy Odom RN)065 (Given - Provider: Aicha Call, ROSS) ondansetron [...] Odom RN)1740 (See Alternative - Provider: Aicha aCll, ROSS) Linked Groups Order Group 1: acetaminophen [...] at 166.7 mL/hr, Administer over 90 Minutes, Material Damage Appraiser to O.R., On Mon10/23/24 at 0545, For 1 dose, Preprocedure, Administer within 1 hour prior to incision. Vial Mate, Suspected Indication (Select all that apply): Surgical Prophylaxis 0745 (New Bag - Provider: Elijah Zaldivar, LIDIA - CONDUIT BENDER) PRN Medication Order 10/22/2024 10/23/2024 10/24/2024 acetaminophen [...] BE BASED ON THE PRIMARY CLINICAL RECORDS. [employer] [facility]. provides no warranty or guarantee of the accuracy or completeness of information in this document.
--- NOTE | 2024-12-27 06:47 | NURSING ---
0600 PATIENT ORAL TEMP 95.8 F, RETAKEN AXILLARY AND WOULD NOT REGISTER. PATIENT COVERED WITH MULTIPLE WARM BLANKETS. WILL RECHECK TEMP.
[2024-12-27 07:12] LABS: Hematocrit 45.1 % (37-47); Hemoglobin 14.4 g/dL (12.0-15.0); Immature Granulocytes Count 0.070 X10^3/uL (0.0-0.0); Mean Corp Hgb Conc 31.9 g/dL (32-36); Mean Corpuscular Volume 89.0 fL (81-99); Mean Platelet Vol. 13.0 fl (6.2-12.0); NRBC Flagged by Analyzer 0.2 % (0-5); Platelet Count 123 K/mm3 (150-450); RBC Distribution Width CV 16.1 % (11.6-14.6); RBC Distribution Width SD 51.8 fl (35.1-43.9); Red Blood Count 5.07 M/mm3 (4.2-5.4); White Blood Count 9.4 K/mm3 (4.4-11.0)
[2024-12-27 07:30] LABS: Anion Gap 14 (5-15); BUN 66 mg/dL (4-19); BUN/Creat Ratio 38.6 RATIO (10-20); Calcium,Total 8.8 mg/dL (7.6-11.0); Carbon Dioxide 17.4 mmol/L (21.0-32.0); Chloride 112 mmol/L (98-108); Estimated Creatinine Clearance 23.25 ml/min (50-250); Glucose 171 mg/dL (70-99); Potassium 4.1 mmol/L (3.3-5.1)
[2024-12-27 07:34] LABS: Troponin T High Sens 4 HR 95 ng/L (<=14)
--- NOTE | 2024-12-27 08:43 | ECHOL_ITS ---
Reason For Study Reason For Study: CHF Procedure This was a limited 2D transthoracic echocardiogram. Exam performed portable in patient room. Left Ventricle Left ventricle is moderately dilated. EF by 2D Llanes's biplane: 15% Grade 3 diastolic dysfunction. Global hypokinesis. Right Ventricle Normal RV size. Borderline reduced RV function. Atria There is moderate biatrial dilatation. Right atrial pressure elevated, greater than 15 mmHg. Mitral Valve Mildly thickened leaflets, moderate annular calcification. There is no stenosis. Moderate-severe mitral regurgitation. Tricuspid Valve Mild tricuspid valve prolapse. There is no tricuspid stenosis. Moderate (2+) tricuspid valve insufficiency. Aortic Valve Sanchez JUSTIN 3 ultra bioprosthetic aortic valve with a size of 23 mm present. Mean gradient: 6.6 mmHg. This gradient is normal for this prosthetic valve. No regurgitation. No significant stenosis seen. Pulmonic Valve Normal pulmonic valve. No pulmonic valve stenosis. No pulmonic valve insufficiency. Great Vessels Normal sized aortic root. Normal ascending aorta. Pericardium/Pleural No pericardial effusion. MMode/2D Measurements & Calculations LVIDd: 5.7 cm IVSd: 0.85 cm LVOT diam: 2.0 cm LVIDs: 5.4 cm LVPWd: 0.83 cm LVOT area: 3.0 cm2 FS: 5.4 % LAV(MOD-bp): 75.2 ml LVAd ap4: 41.5 cm2 LVAd ap2: 44.1 cm2 LAV(MOD-bp) Indexed: 44.4 ml/m2 LVLd ap4: 9.3 cm LVLd ap2: 9.8 cm LAV(MOD-sp2): 72.2 ml EDV(MOD-sp4): 150.9 ml EDV(MOD-sp2): 167.6 ml LAV(MOD-sp4): 74.3 ml EDV(sp4-el): 157.8 ml EDV(sp2-el): 167.4 ml LVAs ap4: 35.6 cm2 LVAs ap2: 39.8 cm2 LVLs ap4: 8.1 cm LVLs ap2: 9.5 cm ESV(MOD-sp4): 129.0 ml ESV(MOD-sp2): 141.5 ml ESV(sp4-el): 133.6 ml ESV(sp2-el): 141.5 ml EF(MOD-sp4): 14.5 % EF(MOD-sp2): 15.6 % EF(sp4-el): 15.3 % SV(MOD-sp4): 21.9 ml SV(MOD-sp2): 26.1 ml SV(sp4-el): 24.2 ml SI(MOD-sp4): 13.0 ml/m2 SI(MOD-sp2): 15.4 ml/m2 LA A4 area: 23.4 cm2 LA dimension(2D): 4.9 cm RA A4 area: 18.6 cm2 TAPSE: 2.1 cm Doppler Measurements & Calculations MV E max tegan: 127.7 cm/sec Ao V2 max: 178.1 cm/sec LV V1 max: 51.1 cm/sec Ao max P.7 mmHg LV V1 max P.0 mmHg Ao V2 mean: 121.8 cm/sec LV V1 mean P.57 mmHg Ao mean P.6 mmHg LV V1 mean: 35.1 cm/sec Ao V2 VTI: 31.2 cm LV V1 VTI: 5.0 cm AV (velocity ratio): 0.16 OMID(I,D): 0.49 cm2 OMID(V,D): 0.87 cm2 SV(LVOT): 15.2 ml TR max tegan: 372.1 cm/sec TR max P.4 mmHg ECHO/Echo, Limited Study Interpretation Summary Left ventricle is moderately dilated. EF by 2D Llanes's biplane: 15% LV function is severely reduced Grade 3 diastolic dysfunction Global hypokinesis. Sanchez JUSTIN 3 ultra bioprosthetic aortic valve with a size of 23 mm present. Normal prosthetic valve function Moderate-severe mitral regurgitation Compared to outside echocardiogram performed 10/24/2024, there is no significant change noted. Ordering Physician: Rita Pal Referring Physician: Amos Fulton Performed By: Michael Sanchez RDCS
[2024-12-27] MEDS: APIXABAN 5 MG TABLET PO ×2 (10:12→21:26)
--- NOTE | 2024-12-27 12:55 | CASEMGMT ---
RN CM pig furnace operator CM to room to meet with patient for initial transition planning/care coordination assessment. RN CM introduced self and role at [facility], pt voices understanding. Pt is A&O, resting in bed. Care providers, pharmacy, and demographics verified. Strata: 2 PCP: Dr Fulton Specialists: Dr Tarango (Nephro), Dr Strickland (Endocrinology [facility]), G/cardiology, Dr Swartz (Urology). Pt also sees a cardiac surgeon @ [facility]. Cardiac Rehab: Pt states she was supposed to start cardiac rehab in [place], but she now has an appt next week @ [facility] for a cardiac rehab eval to determine where she will be doing rehab. Preferred Pharmacy: [facility] Insurance: [facility] Prescription Benefit: Yes LNOK: Lisa (Daughter), Fide (Daughter). Son. Living Arrangements: Pt lives alone in a one-story home with a ramp entrance. Independent w/ADL's and IADL's. Her daughters are supportive and come to do yard work or laundry sometimes d/t washer/dryer are in the basement. Transportation: Self, daughters. Denies concerns DME: Shower chair, Cane, FWW, Grab bars. Pt states she only uses the cane and FWW at times. HHC/SNF: Hx with [facility] and [facility] and [address] Pt wishes to return home and states has no concerns with going home at time of discharge. She states she has been OOB to use the restroom since admission to [facility] and states she has been steady on her feet w/out use of assistive device. She states her strength Is not real strong, but it's pretty good. She declines wanting HHC or OP therapy. She was made aware if she changes her mind once returning home to discuss this w/her PCP. She was made aware of [facility]'s homebound criteria for HHC. ? PLAN:??Home ? Tanya MONDRAGON?RN?DARSHANA
--- NOTE | 2024-12-27 14:32 | PN_ITS ---
Subjective Subjective Patient seen and examined with her nurse by her bedside. She was admitted with a complaint of epistasis and also had shortness of breath. She had a Rhino Rocket inserted in the ED. She was lying comfortably in bed. She denied any shortness of breath and was on room air. She denied any cough or chest pain, palpitations, dizziness, nausea vomiting or any other symptoms. Review of systems otherwise negative. Objective Data Objective Data Vital Signs: Vital Signs Temp Pulse Resp BP Pulse Ox O2 Del Method 97.5 F L 114 H 17 124/90 H 98 Room Air 12/27/24 11:15 12/27/24 11:15 12/27/24 11:15 12/27/24 11:15 12/27/24 11:15 12/27/24 13:54 Oxygen Delivery Method Room Air Weight: 150 lb 12.739 oz Body Mass Index (BMI) 27.7 Intake & Output: Intake and Output for Last 24 Hours 12/25/24 12/26/24 12/27/24 23:59 23:59 23:59 Intake Total 1360 / 1360 Output Total Balance 1359 / 1359 Lab / Micro Data 12/27/24 06:57 12/27/24 06:57 Labs: Laboratory Results - last 24 hr 12/27/24 02:50: WBC 9.0, RBC 5.10, Hgb 14.4, Hct 45.7, MCV 89.6, MCH 28.2, MCHC 31.5 L, RDW Std Deviation 51.9 H, RDW Coeff of Slava 16.0 H, Plt Count 141 L, MPV 12.3 H, Immature Gran % (Auto) 0.600, Neut % (Auto) 66.0, Lymph % (Auto) 19.8, M julio cesar % (Auto) 12.1 H, Eos % (Auto) 0.7, Baso % (Auto) 0.8, Absolute Neuts (auto) 5.9, Absolute Lymphs (auto) 1.77, Nucleated RBC % 0, D-Dimer Quant (PE/DVT) 0.53 H*, Sodium 143, Potassium 4.4, Chloride 111 H, Carbon Dioxide 19.2 L, Anion Gap 13, BUN 60 H, Creatinine 1.73 H, Est GFR (MDRD) Non-Af 29 L, BUN/Creatinine Ratio 34.7 H, Glucose 140 H, Calcium 8.7, Total Bilirubin 1.37 H, AST 25, ALT 34, Alkaline Phosphatase 92, Troponin T High Sens 97 H* D, [place] > [address] H, Total Protein 5.5 L, Albumin 3.7, Globulin 1.8 L, Albumin/Globulin Ratio 2.1 12/27/24 05:00: Troponin T Hi Sens 2 Hr 102 H* 12/27/24 06:57: WBC 9.4, RBC 5.07, Hgb 14.4, Hct 45.1, MCV 89.0, MCH 28.4, MCHC 31.9 L, RDW Std Deviation 51.8 H, RDW Coeff of Slava 16.1 H, Plt Count 123 L, MPV 13.0 H, Immature Gran % (Auto) 0.700, Neut % (Auto) 59.3, Lymph % (Auto) 25.9, M julio cesar % (Auto) 12.3 H, Eos % (Auto) 1.1, Baso % (Auto) 0.7, Absolute Neuts (auto) 5.6, Absolute Lymphs (auto) 2.44, Nucleated RBC % 0.2, Sodium 144, Potassium 4.1, Chloride 112 H, Carbon Dioxide 17.4 L, Anion Gap 14, BUN 66 H, Creatinine 1.72 H, Estim Creat Clear Calc 23.25 L, Est GFR (MDRD) Non-Af 30 L, B UN/Creatinine Ratio 38.6 H, Glucose 171 H, Calcium 8.8, Troponin T Hi Sens 4Hr 95 H* Micro: Microbiology 12/27/24 02:40 Mucosa - Nose SARS-CoV-2, Influenza & RSV (PCR) - Final Radiography Diagnostic Testing: Radiology Impression Chest X-Ray 12/27/24 03:00 IMPRESSION: Interval appearance of minimal bilateral pleural effusions. Associated passive atelectatic airspace disease of the lower lobes. Increased dorsal kyphosis, unchanged. Mild chronic compression deformities of the lower thoracic vertebral bodies, unchanged. Enlarged cardiac silhouette. Reading Location: [place] [id number] Physical Exam Const alert, oriented x3 and no apparent distress General Appearance: cooperative HEENT normocephalic, head/scalp atraumatic, moist oral mucous membranes and oropharynx normal HEENT Narrative: intact nasal packing in left nostril Eyes EOMs intact bilaterally Neck supple and no JVD Lymph Lymphatic: no lymphedema noted Resp normal respiratory effort, normal air movement and clear to auscultation bilaterally Resp Narrative: on room air Cardio regular rate, regular rhythm, S1 normal heart sound, S2 normal heart sound and no murmurs GI normal to inspection, nondistended, normoactive bowel sounds, soft to palpation and non-tender Extremity normal capillary refill, no clubbing, cyanosis or edema and no calf tenderness General Extremity: no tenderness to palpation of joints or extremities Skin General Skin Exam: no breakdown Neuro no focal motor deficits and no sensory deficits noted Motor Exam: general weakness Psych thought process normal and cooperative Appearance: appropriate Assessment & Plan Assessment/Plan (1) Epistaxis: (2) CHF exacerbation: PLAN: Plan #Dyspnea due to 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 If she seems like patient feels she had increased work of breathing. She recently had TAVR done in October [address] [facility]. * Chest x-ray showed minimal pleural effusions. She does not have any lower extremity edema and that stated she is on room air. Currently on IV Lasix. Also on metoprolol and lisinopril. * Repeat 2D echo ordered as her EF in July 2024 was 60% but apparently after she had the TAVR her EF was 18% with severe global hypokinesis of the left ventricle and grade 2 diastolic dysfunction and normal right ventricular size and systolic function as well as moderately severe 3+ tricuspid valve regurgitation. Limited echo ordered to review her EF. * Titrate oxygen as needed to maintain saturation above 90%. Breathing treatments with bronchodilators. * proBNP was over 70,000 and initial troponin was 97 and trended up slightly to 102 but came down to 95. * #Epistaxis * Patient on Eliquis due to recently diagnosed DVT and history of PE. She was admitted with epistasis and had a Rhino Rocket inserted in the left nostril. * Will start on Augmentin for toxic shock syndrome prophylaxis. If it recurs she will need to follow-up with ENT * #Thrombocytopenia: Platelets are down to 123. Platelets were 141 yesterday. Will monitor closely. Baseline platelets from September 2024 was 179. 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 Will monitor. DVT prophylaxis: Not indicated as patient already on Eliquis. Charges/Coding Visit Charges Inpatient E&M: 98455 Subs Hosp L2
--- NOTE | 2024-12-27 14:48 | CHAPLAIN ---
Type of Pastoral Visit ___ Initial Visit ___ Follow-up Visit ___ On-call Visit ___ General Patient Visit ___ Spiritual Assessment ___ Family Conference ___ Bereavement ___ Rapid Response ___ Code Blue ___ Other (describe below) Pastoral Care Referral From ___ Patient ___ Family ___ Nurse ___ Physician ___ Rail Express Clerk ___ Entry Level Accounting Clerk ___ Other (describe below) Sacrament/Intervention ___ Active listening ___ Anointing ___ Samaritan ___ Bereavement ___ Communion ___ Cierra exploration ___ ___ Life review ___ Prayer ___ Reconciliation ___ Sacrament of Sick ___ Supportive presence ___ Wedding ___ Other (describe below) Pastoral Comments two attempts made and patient was sound asleep; pt was a new admit for today
--- NOTE | 2024-12-27 15:25 | CHAPLAIN ---
Type of Pastoral Visit ___ Initial Visit ___ Follow-up Visit ___ On-call Visit ___ General Patient Visit ___ Spiritual Assessment ___ Family Conference ___ Bereavement ___ Rapid Response ___ Code Blue ___ Other (describe below) Pastoral Care Referral From ___ Patient ___ Family ___ Nurse ___ Physician ___ Staking Technician ___ Caster Investment Casting ___ Other (describe below) Sacrament/Intervention ___ Active listening ___ Anointing ___ Roman Catholic ___ Bereavement ___ Communion ___ Cierra exploration ___ ___ Life review ___ Prayer ___ Reconciliation ___ Sacrament of Sick ___ Supportive presence ___ Wedding ___ Other (describe below) Pastoral Comments third attempt today to visit and patient is still asleep; left a calling card
[2024-12-28 00:15] VITALS: PULSE 81
[2024-12-28 02:17] VITALS: BP 124/102; PULSE 80; RESP 16; TEMP 36.4; O2SAT 95
[2024-12-28 05:16] VITALS: BMI 26.4
[2024-12-28 05:40] LABS: Hematocrit 44.8 % (37-47); Hemoglobin 14.6 g/dL (12.0-15.0); Immature Granulocytes Count 0.050 X10^3/uL (0.0-0.0); Mean Corp Hgb Conc 32.6 g/dL (32-36); Mean Corpuscular Volume 86.7 fL (81-99); Mean Platelet Vol. 12.1 fl (6.2-12.0); NRBC Flagged by Analyzer 0 % (0-5); Platelet Count 129 K/mm3 (150-450); RBC Distribution Width CV 16.2 % (11.6-14.6); RBC Distribution Width SD 50.1 fl (35.1-43.9); Red Blood Count 5.17 M/mm3 (4.2-5.4); White Blood Count 10.1 K/mm3 (4.4-11.0)
[2024-12-28 06:16] LABS: Anion Gap 15 (5-15); BUN 55 mg/dL (4-19); BUN/Creat Ratio 35.9 RATIO (10-20); Calcium,Total 8.7 mg/dL (7.6-11.0); Carbon Dioxide 19.8 mmol/L (21.0-32.0); Chloride 108 mmol/L (98-108); Estimated Creatinine Clearance 25.61 ml/min (50-250); Glucose 104 mg/dL (70-99); Potassium 3.6 mmol/L (3.3-5.1)
--- NOTE | 2024-12-28 09:20 | PCA ---
THIS US CALLED DR DRAKE OFFICE TO SCHEDULE FOR REMOVAL OF THE RHINO ROCKET- DUE TO ELIQUIS THEY WILL NOT REMOVE FOR 5 FULL DAYS. APPT MADE FOR MONDAY 01/01 AT 9AM
[2024-12-28 09:55] VITALS: BP 102/74; PULSE 101; RESP 18; TEMP 36.4; O2SAT 97
[2024-12-28 10:04] VITALS: PULSE 101
[2024-12-28] MEDS: 0.9% Saline Lock 10 ML Syringe IV (10:04)
[2024-12-28] MEDS: Metoprolol(XL)Succ 50 MG Tablet PO (10:04)
[2024-12-28] MEDS: APIXABAN 5 MG TABLET PO (10:04)
[2024-12-28 13:12] LABS: Magnesium 2.1 mg/dL (1.5-2.2)
[2024-12-28 15:01] VITALS: BP 94/62; PULSE 103; RESP 16; TEMP 36.7; O2SAT 94
--- NOTE | 2024-12-28 15:09 | DCINST_ITS ---
Discharge Instructions DC O2, CPAP, BIPAP needs Home O2 Discharge instructions: No Dressing / Incision Discharge Activity: Return to Normal Activity May resume sexual activity in: No Restrictions Weight Bearing Status: Weight bearing as tolerated Dressing / Incision Call your doctor if you observe: Fever of 101 or Higher, Shortness of breath, Dizziness, Swelling in the ankles and Chest pain Follow Up Care Test Results: Test results from this visit will be discussed in further detail at your follow- up appointment, if applicable. Discharge Plan Admission Admit Date/Time: 12/27/24 05:18 Primary Reason for Your Visit: epistaxis, heart failure exacerbation Attending Provider: Rita Pal Primary Care Provider: Amos Fulton Consulting Providers: Ted Toro Instructions Patient Instructions: Nosebleed, Coping with Heart Failure, Heart Failure Discharge Orders/Prescriptions Prescriptions: New furosemide [Lasix] 40 mg tablet 40 mg PO DAILY Qty: 30 2RF doxycycline hyclate 100 mg tablet 100 mg PO BID Qty: 10 0RF Continued Prolia 60 mg/mL syringe 60 mg subcut [id number] Qty: 1 1RF methenamine hippurate 1 gram tablet 1 g PO QHS nitroglycerin 0.4 mg tablet, sublingual 0.4 mg SUBLINGUAL Q5-15M PRN (Reason: Cardiac/Chest Pain) Qty: 25 3RF metoprolol succinate 50 mg tablet extended release 24 hr 50 mg PO QDAY simvastatin 20 mg tablet 20 mg PO QHS Qty: 90 3RF lisinopril 5 mg tablet 5 mg PO DAILY ascorbic acid (vitamin C) 1,000 mg tablet 1,000 mg PO QHS hydrocortisone 10 mg tablet 10 mg PO TID Qty: 27 0RF Rx Instructions: 4 tabs TID for 3 days, then 3 tabs TID for 3 days, then 2 tabs TID for 3 days. Eliquis 5 mg tablet 5 mg PO BID Qty: 180 3RF Referrals / Follow Up: Jordan Marte MD [Med Staff - Active Staff, Cardiology] - Within 2 Weeks Chino Mario MD [Med Staff - Active Staff, Ear Nose Throat (ENT)] - 01/01/25 9:00 am Referral Note: Must be in for 5 days due to blood thinner Amos Fulton MD [Primary Care Provider, Internal Medicine] Disposition Disposition (needs filled in before D/C Order can be placed): Home, Self Care
--- NOTE | 2024-12-28 15:12 | DS.PCM_ITS ---
Providers Date of Admission: 12/27/24 Date of Discharge: 12/28/24 Primary Care Physician: Dr. 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 If she seems like patient feels she had increased work of breathing. She recently had TAVR done in October 2023 in [facility]. * Chest x-ray showed minimal pleural effusions. She does not have any lower extremity edema and that stated she is on room air. Currently on IV Lasix. Also on metoprolol and lisinopril. * Repeat 2D echo ordered as her EF in July 2024 was 60% but apparently after she had the TAVR her EF was 18% with severe global hypokinesis of the left ventricle and grade 2 diastolic dysfunction and normal right ventricular size and systolic function as well as moderately severe 3+ tricuspid valve regurgitation. Limited echo ordered to review her EF. * Titrate oxygen as needed to maintain saturation above 90%. Breathing treatments with bronchodilators. * proBNP was over 70,000 and initial troponin was 97 and trended up slightly to 102 but came down to 95. * #Epistaxis * Patient on Eliquis due to recently diagnosed DVT and history of PE. She was admitted with epistasis and had a Rhino Rocket inserted in the left nostril. * Will start on Augmentin for toxic shock syndrome prophylaxis. If it recurs she will need to follow-up with ENT * #Thrombocytopenia: Platelets are down to 123. Platelets were 141 yesterday. Will monitor closely. Baseline platelets from September 2024 was 179. 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 Will monitor. DVT prophylaxis: Not indicated as patient already on Eliquis. Medications at Discharge Home Medications denosumab 60 mg/mL subcutaneous syringe (Prolia) 60 mg subcut [id number] #1 mL 11/24/22 nitroglycerin 0.4 mg sublingual tablet 0.4 mg sublingual Q5-15M PRN Cardiac/Chest Pain #25 tabs 07/26/23 methenamine hippurate 1 gram tablet 1 g PO QHS 04/29/24 simvastatin 20 mg tablet 20 mg PO QHS #90 tabs 07/23/24 ascorbic acid (vitamin C) 1,000 mg tablet 1,000 mg PO QHS 08/07/24 hydrocortisone 10 mg tablet 10 mg PO TID #27 tabs 08/09/24 apixaban 5 mg tablet (Eliquis) 5 mg PO BID #180 tabs 09/17/24 metoprolol succinate 50 mg tablet,extended release 24 hr 50 mg PO QDAY 11/14/24 lisinopril 5 mg tablet 5 mg PO DAILY 12/27/24 doxycycline hyclate 100 mg tablet 100 mg PO BID #10 tabs 12/28/24 furosemide 40 mg tablet (Lasix) 40 mg PO DAILY #30 tabs 12/28/24 potassium chloride 20 mEq tablet,extended release (K-Tab) 20 meq PO DAILY #30 tabs 12/28/24 Hospital Course Operations None Procedures 2-D Echocardiogram Summary of Care Provided Minutes Spent on Discharge: 45 Hospital Course: Patient is an 79-year-old female with past medical history as outlined was admitted to the ED on 12/27/2024 with a complaint of left nostril bleeding. Patient was on anticoagulation on account of DVTs diagnosed in July 2024 therefore anticoagulation could not be stopped. On admission she also complained of shortness of breath and BNP done was greater than 70,000. Patient had recently had TAVR procedure done at [email or web address]] in October 2024. Prior to the TAVR her EF had been around 60% per echo done in July but after the TAVR her EF was 18% with stage II diastolic dysfunction. She was admitted and managed for epistasis as well as acute exacerbation of heart failure with reduced ejection fraction. She had left nasal packing done in the ED. She was started on diuresis with IV Lasix. 2D echo was repeated which showed EF of 15% and was not much changed from echo done in October 2024. Hospital course was complicated by short beat run of V. tach. I discussed with the ceramic artist on- call Dr. Smyth and in light of patient's EF of 18%, that should be drawn of V. tach was not surprising. Magnesium was within normal limits and potassium was 3.6. Patient was given a dose of p.o. potassium 40 mg x 1. She was also counseled to follow-up with cardiology on outpatient basis. Per discussion with ceramic artist on-call, patient could follow-up with him on outpatient basis and there was not much else that could be done inpatient at this point in time as she was clinically stable. The left nasal packing was left in situ and patient was discharged home on 12/28/2024. Nursing staff did call ENT office to book an appointment for her and per ENT office since patient was on anticoagulation she had to leave the nasal packing in for 5 days and so she was to follow-up on 01/01/2025 for the nasal packing to be removed. Patient was therefore discharged on p.o. doxycycline 100 mg twice daily for prophylaxis against toxic shock syndrome. She was also discharged on p.o. Lasix 40 mg daily with p.o. potassium 20 mg daily supplementation. She is follow-up with her primary care doctor and follow-up with cardiology on outpatient basis. Patient seen and examined prior to discharge. She had no active complaints and had an uneventful night. Review of systems otherwise negative. Labs and vitals reviewed. Home medication reviewed and reconciled. Physical Exam Const alert, oriented x3 and no apparent distress General Appearance: cooperative and comfortable HEENT normocephalic, head/scalp atraumatic, hearing grossly normal bilaterally, moist oral mucous membranes and oropharynx normal Mouth: oral and palatal mucosa normal Eyes EOMs intact bilaterally Neck supple and no JVD Lymph Lymphatic: no lymphedema noted Resp normal respiratory effort, normal air movement and clear to auscultation bilaterally Resp Narrative: on room air Cardio regular rate, regular rhythm, S1 normal heart sound, S2 normal heart sound and no murmurs GI normal to inspection, nondistended, normoactive bowel sounds, soft to palpation and non-tender Extremity normal to inspection, full ROM, normal capillary refill, no clubbing, cyanosis or edema and no calf tenderness General Extremity: no tenderness to palpation of joints or extremities Skin General Skin Exam: no breakdown Neuro oriented x3, CN's II-XII intact bilaterally, moves all extremities, no focal motor deficits and no sensory deficits noted Sensorium / Orientation: awake and alert Motor Exam: strength 5/5 throughout and general weakness Psych thought process normal and cooperative Appearance: appropriate Weight / BMI Weight Weight: 144 lb 6.444 oz Body Mass Index (BMI) 26.4 ABG / Lab / Microbiology Data 12/28/24 05:04 12/28/24 05:04 Laboratory: Laboratory Results - last 24 hr 12/28/24 05:04: WBC 10.1, RBC 5.17, Hgb 14.6, Hct 44.8, MCV 86.7, MCH 28.2, MCHC 32.6, RDW Std Deviation 50.1 H, RDW Coeff of Slava 16.2 H, Plt Count 129 L, MPV 12.1 H, Immature Gran % (Auto) 0.500, Neut % (Auto) 75.4 H, Lymph % (Auto) 13.4 L, [place] % (Auto) 9.7, Eos % (Auto) 0.7, Baso % (Auto) 0.3, Absolute Neuts (auto) 7.6, Absolute Lymphs (auto) 1.35, Nucleated RBC % 0, Sodium 142, Potassium 3.6, Chloride 108, Carbon Dioxide 19.8 L, Anion Gap 15, BUN 55 H, Creatinine 1.53 H, Estim Creat Clear Calc 25.61 L, Est GFR (MDRD) Non-Af 34 L, BUN/Creatinine Ratio 35.9 H, Glucose 104 H, Calcium 8.7, Phosphorus 3.2, Magnesium 2.1 Microbiology: Microbiology 12/27/24 02:40 Mucosa - Nose SARS-CoV-2, Influenza & RSV (PCR) - Final Radiography Diagnostic Testing: Radiology Impression Echocardiogram 12/27/24 08:43 Interpretation Summary Left ventricle is moderately dilated. EF by 2D Llanes's biplane: 15% LV function is severely reduced Grade 3 diastolic dysfunction Global hypokinesis. Sanchez JUSTNI 3 ultra bioprosthetic aortic valve with a size of 23 mm present. Normal prosthetic valve function Moderate-severe mitral regurgitation Compared to outside echocardiogram performed 10/24/2024, there is no significant change noted. Ordering Physician: Rita Pal Referring Physician: Amos Fulton Performed By: Michael Sanchez RDCS D/C Instructions Discharge Activity: Return to Normal Activity May resume sexual activity in: No Restrictions Weight Bearing Status: Weight bearing as tolerated Call your doctor if you observe: Fever of 101 or Higher, Shortness of breath, Dizziness, Swelling in the ankles and Chest pain DC O2, CPAP, BIPAP Needs Home O2 Discharge instructions: No DC home with Oxygen: No Meaningful Use Info Meaningful Use Meaningful Use Diagnoses (Choose all that apply): CHF CHF BIMAL/ARB ordered at discharge?: Yes Documented LVEF (%): 15 Discharge Plan Admission Admit Date/Time: 12/27/24 05:18 Primary Reason for Your Visit: epistaxis, heart failure exacerbation Attending Provider: Rita Pal Primary Care Provider: Amos Fulton Consulting Providers: Ted Toro Instructions Patient Instructions: Nosebleed, Coping with Heart Failure, Heart Failure Discharge Orders/Prescriptions Prescriptions: New furosemide [Lasix] 40 mg tablet 40 mg PO DAILY Qty: 30 2RF doxycycline hyclate 100 mg tablet 100 mg PO BID Qty: 10 0RF potassium chloride [K-Tab] 20 mEq tablet extended release 20 meq PO DAILY Qty: 30 1RF Continued Prolia 60 mg/mL syringe 60 mg subcut [id number] Qty: 1 1RF methenamine hippurate 1 gram tablet 1 g PO QHS nitroglycerin 0.4 mg tablet, sublingual 0.4 mg SUBLINGUAL Q5-15M PRN (Reason: Cardiac/Chest Pain) Qty: 25 3RF metoprolol succinate 50 mg tablet extended release 24 hr 50 mg PO QDAY simvastatin 20 mg tablet 20 mg PO QHS Qty: 90 3RF lisinopril 5 mg tablet 5 mg PO DAILY ascorbic acid (vitamin C) 1,000 mg tablet 1,000 mg PO QHS hydrocortisone 10 mg tablet 10 mg PO TID Qty: 27 0RF Rx Instructions: 4 tabs TID for 3 days, then 3 tabs TID for 3 days, then 2 tabs TID for 3 days. Eliquis 5 mg tablet 5 mg PO BID Qty: 180 3RF Referrals / Follow Up: Jordan Marte MD [Med Staff - Active Staff, Cardiology] - Within 2 Weeks Chino Mario MD [Med Staff - Active Staff, Ear Nose Throat (ENT)] - 01/01/25 9:00 am Referral Note: Must be in for 5 days due to blood thinner Amos Fulton MD [Primary Care Provider, Internal Medicine] Disposition Disposition (needs filled in before D/C Order can be placed): Home, Self Care Charges/Coding Visit Charges Inpatient E&M: 19614 Disch Hosp >30min
[2024-12-28] MEDS: Potassium Chloride Oral Tablet 20 MEQ 40 MEQ PO (15:27)
== END 2024-12-28 16:54 | disposition home or self-care (01) ==
LOC: ED 04:57 → PCU 07:19
PROVIDERS: Admitting Provider Family Medicine; Emergency Provider Specialist/Technologist Athletic Trainer; PCP Internal Medicine; Visit Provider Student in an Organized Health Care Education/Training Program
DX: I13.0 Hypertensive heart and chronic kidney disease with heart failure and stage 1 through stage 4 chronic kidney disease, or unspecified chronic kidney disease (principal); E27.1 Primary adrenocortical insufficiency; I50.43 Acute on chronic combined systolic (congestive) and diastolic (congestive) heart failure; N18.30 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, stage 3 unspecified; Z79.01 Long term (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; I08.1 Rheumatic disorders of both mitral and tricuspid valves; E78.5 Hyperlipidemia, unspecified; R04.0 Epistaxis; Z86.718 Personal history of other venous thrombosis and embolism; Z86.711 Personal history of pulmonary embolism; Z95.2 Presence of prosthetic heart valve; Z79.899 Other long term (current) drug therapy; R94.31 Abnormal electrocardiogram [ECG] [EKG]; D69.6 Thrombocytopenia, unspecified
CPT/HCPCS: 30901; 36415; 71046; 80048; 80053; 83735; 83880; 84100; 84484; 85025; 85379; 87631; 93005; 93308; 96374; 96376; 97802; 99221; 99285; A4216; G0378; J1938

== ENCOUNTER → 2024-12-31 | Outpatient (CLI) | payer MEDICARE, SELFPAY ==
--- NOTE | 2024-12-31 10:14 | CR.HP_ITS ---
CR - History & Physical General Arrival date:: 12/31/24 Arrival time:: 10:15 Date of Referral:: 12/04/24 Date of CR Evaluation:: 12/31/24 Referring Physician: Dr. Marte Primary Diagnosis: Heart Valve Replacement History of Present Cardiac Event Onset Date Heart valve replacement or repair:: Yes (onset 10/23/2024) Heart Failure EF <35%:: Yes (Pt has a new diagnosis of HF.) Medications Ambulatory Orders ?Medication ?Instructions ?Recorded denosumab 60 mg/mL subcutaneous 60 mg subcut [id number] bone health 11/24/22 syringe (Prolia) #1 mL nitroglycerin 0.4 mg sublingual 0.4 mg sublingual Q5-1 5M PRN 07/26/23 tablet Cardiac/Chest Pain #25 tabs methenamine hippurate 1 gram tablet 1 g PO QHS 5 simvastatin 20 mg tablet 20 mg PO QHS cholesterol #90 tabs 07/23/24 ascorbic acid (vitamin C) 1,000 mg 1,000 mg PO QHS vit evans 08/07/24 tablet hydrocortisone 10 mg tablet 10 mg PO TID inflammation #27 tabs 08/09/24 apixaban 5 mg tablet (Eliquis) 5 mg PO BID blood thinn er #180 tabs 09/17/24 metoprolol succinate 50 mg 50 mg PO QDAY blood pressur e 11/14/24 tablet,extended release 24 hr lisinopril 5 mg tablet 5 mg PO DAILY blood pressure 12/27/24 doxycycline hyclate 100 mg tablet 100 mg PO BID #10 ta bs 12/28/24 furosemide 40 mg tablet (Lasix) 40 mg PO DAILY #30 tab s 12/28/24 potassium chloride 20 mEq 20 meq PO DAILY #30 tabs 10/14 tablet,extended release (K-Tab) Allergies Allergies ciprofloxacin (From Cipro) Allergy (Verified 12/27/24 00:22) Rash Penicillins Allergy (Verified 12/27/24 00:22) Rash Sleep Disorder Evaluation Hx of Sleep Apnea: No Do you snore loudly (louder than talking or can be heard through closed doors)?: No Do you often feel tired/ fatigued/ sleepy during daytime?: No Has anyone observed you stop breathing during sleep?: No History of Hypertension (for STOP score): Yes STOP Results: Negative Advanced Directives Advanced Directives 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 Living Will: Yes Advance Directives on File: Yes DNR Order?:: No Past Medical History Covid-19 Screening Physicial Symptoms Other Clinical Concerns Exposure Risk Pertinent Comorbidities 65 years or older:: Yes Has a serious heart condition:: Yes Past Medical Illness Medical History Overweight (BMI 25.0-29.9) Aortic stenosis Aortic stenosis, severe Glacier's disease MVP (mitral valve prolapse) Aortic stenosis Hypokalemia Elevated serum creatinine Acute prerenal azotemia History of kidney cancer Chronic kidney disease Hypercalcemia Frequent falls Closed head injury (03/20/20) Hypoglycemia (03/20/20) Acute electrocardiogram changes Atopic dermatitis Osteopenia determined by x-ray History of pulmonary embolism [facility] (current) use of anticoagulants Orthostatic hypotension Chronic kidney disease, stage 3 Glacier disease Essential (primary) hypertension Hyperlipidemia Recurrent deep vein thrombosis (DVT) History of non-ST elevation myocardial infarction (NSTEMI) (04/2009) Pyelonephritis Cystocele with rectocele History of DVT (deep vein thrombosis) Hypotension Past Surgical History Surgical History 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) History of left heart catheterization (04/2009) History of left nephrectomy (2000) History of total abdominal hysterectomy History of bladder repair surgery H/O partial nephrectomy (2009) H/O total cystectomy Surgical History: cataract, cholecystectomy, hysterectomy (Total abdominal.) and - (Right partial nephrectomy, left nephrectomy, bladder repair.) Family History Summary Family History Father CVA (cerebral vascular accident) Mother Myocardial infarction, Onset Age: 87 Other 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 Social History Smoking History Smoking Status: Never smoker Alcohol Use Alcohol Usage: No Substance Abuse Hx Substance Use: No Occupation Occupation (List type of work in comments):: Retired Social Environment Status Marital Status: Current Living Arrangements Living Environment:: Alone Children How many children do you have?: 3 Do any of your children live nearby?: Yes Safety Do you feel safe in your surroundings?: Yes Assistance Do you need any assistance at home?: no Review of Systems Review of Systems Hints Review of Present Symptoms: Reports Shortness of Breath at Rest, Shortness of Breath with Exertion, PVD, Angina, Dizziness/Lightheadedness, Fatigue, Heart Arrhythmia/Irregularities and Appetite - Special Diet; Denies Operative Discomfort, Wound Healing, Appetite - Normal, Sleep - Normal or Sexual Changes Pain Is Patient Pain Free?: Yes Risk Factor Assessment Chief Complaint Chief Complaint: Heart Valve Replacement Vital Signs Pulse Ox: 97 Blood Pressure: 94/52 Pulse Pulse Rate: 47 Hypertension Blood Pressure Sitting - Right Arm: 94/52 Obesity Height: 5 ft 2 in Weight:: 149 lb Weight in Pounds: 149.0 lbs Body Mass Index (BMI): 27.2 Physical Inactivity Physical Inactivity: None Risk Stratification Risk Guidelines: Lowest Risk: Risk Factor for Smoking, Moderate Risk: Risk Factor for Dyslipidemia, Risk Factor for Diabetes, Risk Factor for Obesity, Risk Factor for Sedentary Lifestyle and Risk Factor for Depression and Highest Risk: Risk Factor for Hypertension For Smoking Smoking Risk Guidelines For Dyslipidemia Dyslipidemia Risk Guidelines For Diabetes Mellitus Diabetes Risk Guidelines For Obesity/Overweight Obesity/Overweight Risk Guidelines For Hypertension Hypertension Risk Guidelines For Sedentary Lifestyle Sedentary Lifestyle Risk Guidelines For Depression Depression Risk Guidelines Family History Family History Father CVA (cerebral vascular accident) Mother Myocardial infarction, Onset Age: 87 Other 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 In other words, what do you hope to get out of participating in the program?: more energy Are there issues you are dealing with that will interfere with completing the program?: no Do you have a spouse or signficant other, family or friends who will help support you to complete the program?: yes
--- NOTE | 2024-12-31 10:21 | PCM.CR.ITP ---
Diagnosis General Information Admitting Diagnosis: Heart Valve Replacement Personal Learning Style:: Audio/Visual Barriers to Learning: No Barriers Stage of change r/t lifestyle modifications:: Contemplation Gave educational material for:: Treating Heart Disease, How The Heart Works, What it means to have Heart Disease, How Coronary Artery Disease is Diagnosed, Heart Procedures, What Heart Medications Do, Risk Factors & Modifications, Living an Active Life, Nutrition, Emotions & Heart Disease, Stress Management & Relaxation and Sleep Disorders & Heart Disease Education/Goals Cardiac Rehabilitation Goals Personal Goals: Initial Assessment: Improve energy level, Participate in home exercise program, Get back to work, or to resume activities faster, Improve knowledge of cardiac disease, Improve muscle strength and endurance, Improve diet and eating habits (eat healthier), Control risk factors (learn risk factor modification) and Other goal: Scale for measuring improvement of personal goals Diagnosis & Disease Process Outcomes/Goals: Pt IDs own risk factors & lifestyle modifications by Session 10, Verbalizes symptoms of angina & response by session 3., Pt independently manages and Other Additional Outcomes/Goals: Plan/Interventions: Assist Pt to ID & engage in lifestyle modification to reduce CVD risk, Instruct on individual risk factors, Review symptoms of angina & emergency actions, Review secondary diagnosis & identify educational needs. and Other see comment 30 day Reassessments:: Not Met 30 day Reassessments:: Not Met 30 day Reassessments:: Not Met 30 day Reassessments:: Not Met Final Reassessments:: Not Met Safety Referral to Physical Therapy: No Referral to [facility] Case Management: No Fall Risk Assessed:: Yes (Pt has a diagnosis of dizziness and frequent falls.) Assistive Devices:: None Exercise - Initial Assessment Visit Date of Eval: 12/31/24 (initial eval) Mets: Pre-: >3 METS for 30 minutes by discharge, >5 METS for 30 minutes by discharge, >7 METS for 30 minutes by discharge and Unable to meet goal due to: (see comment below) Physician Prescribed Exercise Modalities: Treadmill, Schwinn Airdyne AD-7, SciFit Stepper, SciFit Pro-II Ergometer and SciFit Lateral Capitola Frequency: 3x/week for 12 weeks [36 sessions] Intensity: 60-80% of age predicted maximum heart rate reserve Duration: 30 - 45 minutes Current METSs:: 3 Target Heart Rate:: 83-104 Resting Blood Pressure: 94/52 EKG Type: ST Outcomes & Goals Goals:: Verbalizes understanding of THR, RPE & goal METS by session 6, Documents in home exercise log/reports 30 min aerobic 5 day/wk by DC, Demonstrates accurate pulse taking by DC and Other additional outcome/goals: see below Intervention & Plan Exercise Program Goals: Instruct on personal THR & RPE, Instruct on MET level & personal MET goal, Show patient to take own pulse /validate performance until accurate, Instruct on home exercise and Other additional plan/int Physical Activity Home Exercise Physical Activity - Home Exercise: Safe Exercise, Warm-up, Self-monitoring, Cool-Down, Home Exercise > 30 min Daily and Sitting Time <3 hours/daily Outcomes & Goals Outcomes/Goals: Demonstrates correct Warm-up/exercise Cool-Down (S3) if = 2.5 METs, Verbalizes symptoms of exercise intolerance by Session 3 (S3), Demonstrate safe equipment use (S3) & follows exercise prescrition (6) and Other: See below Intervention & Plan Plan/Intervention: Instruct warm-up & cool-down if exercising at > 2 METs, Instruct on symptoms of exercise intolerance & actions to take, Instruct & monitor on saf, Assess intial functional capacity & safety risk and Other See below Nutrition - Initial Assessment Program Goals Nutrition Program Goals Patient has diagnosis of Hyperlipidemia (ICD E78)?: No Visit Date of Eval: 12/31/24 (initial eval. Nutrition survey score of 1.) Cholesterol/Lipids (Other Core Measures) Determine presence & major risk factors that modify LDL goal: Cigarette smoking, Hypertension or hypertensive medication, Low HDL cholesterol <40 mg/dL*, Family history of premature CHD in Male < 55 years: female <65 yearsFa and Age men > 45 years; women >/= 55 years Outcomes/Goals: Pt IDs own risk factors & lifestyle modifications by Session 10, Verbalizes symptoms of angina & response by session 3., Pt independently manages and Other Additional Outcomes/Goals: Intervention/Plan: Advocate for lipid panel cholesterol medication if applicable, Instruct on personal lipid levels & lipid goals/NCEP guidelines, Instruct on cholesterol and Other additional plan/int Diabetes (Other Core Measures) Diabetes Type: Not Applicable Weight Mgt (Other Care) Height: 5 ft 2 in Weight:: 149 lb BMI: 27.2 Diagnosis Overweight/Obesity BMI> 30% ICD-10 E66: No Diagnosis High BMI/Morbid Obesity BMI> 35% ICD-10 Z68: No Outcomes/Goals: Pt sets, maintains & shows weight loss goal & trend during rehab and Other additional outcomes/goals Intervention/Plan: Instruct on ideal BMI & set weight loss goal w/patient, Assist pt to ID & incorporate diet changes for weight loss by S9, Refer to Structured Weight Loss program as appropriate, Encourage goal of using 250-300dcal per session for weight loss and Other additional plan/interventions Healthy Eating Habits Will attend diet classes:: Yes Outcomes/Goals:: Consume diet rich in vegs,fruits,whole grain/high fiber,fish,lean meat, Limit sat/trans fats,cholesterol & added salts & sugars and Other additional outcome/goals: Intervention/Plan:: Assess current eating habits and Other Additional plan/interventions Education Gave educational materials for:: Signs & symptoms of hypoglycemia, Signs & symptoms of hyperglycemia, Relate diabetes to coronary artery disease and Healthy eating Core - Initial Assessment Visit Date of Eval: 12/31/24 (initial eval ) Medication Compliance Preventative Medication(s):: BIMAL inhibitor, Statin/lipid, Beta edbo and Eliquis H/O mental health issues: depression, anxiety, or addiction?: No Doesn?t believe in the benefits of treatment?: No Believes medications are unnecessary or harmful?: No Has a concern about medication side effects?: No Expresses concern over the cost of medications?: No Outcomes/Goals: Verbalizes medications,desired effect & common side effects @ DC, Pt self-reports following medication regimen, Keeps card in wallet w/medications listed by DC and Other additional outcome/goals: Interventions/plans: Instruct on medication effects & side effects, Review medication list w/patient every two weeks, Instruct importance of taking meds as ordered & assist problem solving and Other additional Tobacco Use Tobacco Use: Non-smoker Hypertension Hypertension Diagnosis:: Hypertension ICD-10 I10 Resting Blood Pressure:: 94/52 [place] [employer] Hypertension Guidelines Outcomes/Goals: Able to verbalize/achieve optimal blood pressure <130/80, Incorporates diet changes & exercise for blood pressure control by DC and Other additional outcomes/goals Interventions/plan: Instruct on optimal blood pressure, hypertension & medications, Instruct on effects of sodium, alcohol, stress, exercise &hypertension and Other additional plan/interventions Tobacco Cessation Referral Smoking Cessation Referral:: No Individual Education/Counseling:: No Education Schedule Given:: Yes Psychosocial - Initial Assess VIsit Date of Eval: 12/31/24 (initial eval ) History of previous Mental disease:: No Psychosocial Test Tool Used:: Ferrans Power QOL Cardiac and PHQ-9 Questionnaire phq-9 Severity See PHQ-9 Score: 10 Referral to Behavioral Health PS - Interventions: Yes: Attend Stress Management Classes Outcomes/Goals: See list Psychosocial Outcomes/Goals:: ID's personal stressors & 2 strategies to manage stress by discharge and Other Additional outcome/goals: Intervention/Plan: See List Interventions/Plan:: Assess stressors,coping strategies & signs of derpression on admission, Instruct/assist pt to develop coping & personal stress Mgt strategies, Refer to Behavioral Health if appropriate, Refer to Physician if appropriate, Instruct patient to recognize signs & symptoms of depression, Instruct patient to recog and Other additional plan/intervention Patient Health Questionnaire PHQ-9 Screening Initial Assessment: 1. Little interest or pleasure in doing things: Several days 2. Feeling down, depressed, or hopeless: Not at all 3. Trouble falling or staying asleep, or sleeping too much: More than half the days 4. Feeling tired or having little energy: More than half the days 5. Poor appetite or overeating: More than half the days 6. Feeling bad about yourself -- or that you are a failure or have let yourself or your family down: Several days 7. Trouble concentrating on things, such as reading the newspaper or watching television: Several days 8. Moving or speaking so slowly that other people could have noticed. Or the opposite - being so fidgety or restless that you have been moving around a lot more than usual: Several days 9. Thoughts that you would be better off , or of hurting yourself in some way: Not at all How difficult have these problems made it for you to do your work, take care of things at home, or get along with other people?: Somewhat difficult Total Score: 10 Nutrition Survey Nutrition Survey Initial: Have you lost >10 lbs over the past 2 months without trying?: No Are you following a special diet at home for diabetes, low fat, or low salt?: No Are you interested in meeting with a dietitian for help understanding your diet?: No Do you eat less than 3 meals a day?: No Do you eat fatty meats (gorman, sausage, ribs, etc), fried foods, desserts, large amounts of salad dressings, margarine, butter, or cheese most days?: No Do you have food allergies? [Enter types in comment field]: No Do you eat in restaurants more than 3 times a week?: No Do you season food with salt, seasoning salt, or garlic salt?: No Do you used canned, boxed, frozen meals, or soups, seasoning packets?: Yes Total Score:: 1 Exercise - 30-day Assessment Physician Prescribed Exercise Modalities: Treadmill, Schwinn Airdyne AD-7, SciFit Stepper, SciFit Pro-II Ergometer and SciFit Lateral Regional Property Manager Exercise - 60-day Assessment Physician Prescribed Exercise Modalities: Treadmill, Schwinn Airdyne AD-7, SciFit Stepper, SciFit Pro-II Ergometer and SciFit Lateral Capitola Exercise - 90-day Assessment Physician Prescribed Exercise Modalities: Treadmill, Schwinn Airdyne AD-7, SciFit Stepper, SciFit Pro-II Ergometer and SciFit Lateral Regional Property Manager Exercise - Final/Discharge Physician Prescribed Exercise Modalities: Treadmill, Schwinn Airdyne AD-7, SciFit Stepper, SciFit Pro-II Ergometer and SciFit Lateral Capitola Frequency: 3x/week for 12 weeks [36 sessions] Intensity: 60-80% of age predicted maximum heart rate reserve Current METSs:: 3 Target Heart Rate:: 83-104 Nutrition - 30-Day Assessment Weight Mgt (Other Care) Height: 5 ft 2 in Weight:: 149 lb BMI: 27.2 Nutrition - 60-Day Assessment Weight Mgt (Other Care) Height: 5 ft 2 in Weight:: 149 lb BMI: 27.2 Core - Final Assessment Hypertension Resting Blood Pressure:: 94/52 [place] [employer] Hypertension Guidelines Core - 60-Day Assessment Hypertension Resting Blood Pressure:: 94/52 [place] [employer] Hypertension Guidelines Psychosocial - 30-Day Assess Referral to Behavioral Health PS - Interventions: Yes: Attend Stress Management Classes Psychosocial - 60-Day Assess Referral to Behavioral Health PS - Interventions: Yes: Attend Stress Management Classes Psychosocial - 90-Day Assess Referral to Behavioral Health PS - Interventions: Yes: Attend Stress Management Classes Psychosocial - Final Assessmen Psychosocial Test phq-9 Severity See PHQ-9 Score: 10 Referral to Behavioral Health PS - Interventions: Yes: Attend Stress Management Classes Nutrition - 90-Day Assessment Weight Mgt (Other Care) Height: 5 ft 2 in Weight:: 149 lb BMI: 27.2 Nutrition - Final Assessment Program Goals Patient has diagnosis of Hyperlipidemia (ICD E78)?: No Weight Mgt (Other Care) Height: 5 ft 2 in Weight:: 149 lb BMI: 27.2
[2024-12-31 10:53] VITALS: BP 94/52; PULSE 47; O2SAT 97; BMI 27.2
[2024-12-31 11:26] VITALS: BP 94/52; BMI 27.2
== END | disposition home or self-care (01) ==
PROVIDERS: PCP Internal Medicine; Referring Provider Internal Medicine Cardiovascular Disease; Visit Provider Internal Medicine Cardiovascular Disease
DX: Z95.2 Presence of prosthetic heart valve (principal)

== ENCOUNTER 2025-01-15 13:00 | Outpatient (RCR) | payer MEDICARE, SELFPAY ==
[2024-12-31 11:26] VITALS: BMI 27.2
== END 2025-01-19 23:59 ==
LOC: CR 13:00
PROVIDERS: PCP Internal Medicine; Referring Provider Internal Medicine Cardiovascular Disease; Visit Provider Internal Medicine Cardiovascular Disease
DX: Z95.2 Presence of prosthetic heart valve (principal)
CPT/HCPCS: 93798

== ENCOUNTER → 2025-01-31 | Outpatient (CLI) | payer MEDICARE, SELFPAY ==
[2025-01-27 08:45] VITALS: BMI 26.5
[2025-01-31 15:39] LABS: Anion Gap 11 (5-15); BUN 37 mg/dL (4-19); BUN/Creat Ratio 24.9 RATIO (10-20); Calcium,Total 9.7 mg/dL (7.6-11.0); Carbon Dioxide 23.4 mmol/L (21.0-32.0); Chloride 105 mmol/L (98-108); Glucose 82 mg/dL (70-99); Potassium 5.8 mmol/L (3.3-5.1)
== END | disposition home or self-care (01) ==
LOC: LAB 14:11
PROVIDERS: PCP Internal Medicine
DX: I50.22 Chronic systolic (congestive) heart failure (principal)
CPT/HCPCS: 36415; 80048

== ENCOUNTER → 2025-02-10 | Outpatient (CLI) | payer MEDICARE, SELFPAY ==
[2025-01-27 08:45] VITALS: BMI 26.5
[2025-02-10 13:36] LABS: Anion Gap 12 (7-18); BUN 39 mg/dL (4-19); BUN/Creat Ratio 23.7 RATIO (10-20); Calcium,Total 10.0 mg/dL (7.6-11.0); Carbon Dioxide 25.2 mmol/L (20.0-29.0); Chloride 108 mmol/L (96-106); Glucose 79 mg/dL (70-99); Potassium 5.2 mmol/L (3.5-5.1)
== END | disposition home or self-care (01) ==
LOC: LAB 12:17
PROVIDERS: PCP Internal Medicine
DX: E87.5 Hyperkalemia (principal)
CPT/HCPCS: 36415; 80048

== ENCOUNTER 2025-02-12 13:00 | Outpatient (RCR) | payer MEDICARE, SELFPAY ==
[2024-12-31 11:26] VITALS: BMI 27.2
--- NOTE | 2025-01-27 08:34 | PCM.CR.ITP ---
Exercise - Initial Assessment Visit Session #:: 5 Physician Prescribed Exercise Modalities: SciFit Stepper and SciFit Pro-II Ergometer Nutrition - Initial Assessment Weight Mgt (Other Care) Height: 5 ft 2 in Weight:: 145 lb BMI: 26.5 Psychosocial - Initial Assess Referral to Behavioral Health PS - Interventions: Yes: Attend Stress Management Classes Exercise - 30-day Assessment Visit Date of Eval: 01/27/25 Session #:: 5 Physician Prescribed Exercise Modalities: SciFit Stepper and SciFit Pro-II Ergometer Frequency: 3x/week for 12 weeks [36 sessions] Intensity: 60-80% of age predicted maximum heart rate reserve Duration: 30 - 45 minutes Current METSs:: 3 Target Heart Rate:: 83-104 Current RPE:: 11-13 Maximum Excercise HR:: 120 Resting Blood Pressure: 128/78 Maximum Exercise Blood Pressure: 130/92 EKG Type: NSR-ST, sinus arrythmia at times w/occas PAC,PVC Outcomes & Goals Goals:: Verbalizes understanding of THR, RPE & goal METS by session 6, Documents in home exercise log/reports 30 min aerobic 5 day/wk by DC, Demonstrates accurate pulse taking by DC and Other additional outcome/goals: see below Intervention & Plan Exercise Program Goals: Instruct on personal THR & RPE, Instruct on MET level & personal MET goal, Show patient to take own pulse /validate performance until accurate, Instruct on home exercise and Other additional plan/int Physical Activity Home Exercise Physical Activity - Home Exercise: Safe Exercise, Warm-up, Self-monitoring, Cool-Down, Home Exercise > 30 min Daily and Sitting Time <3 hours/daily Outcomes & Goals Outcomes/Goals: Demonstrates correct Warm-up/exercise Cool-Down (S3) if = 2.5 METs, Verbalizes symptoms of exercise intolerance by Session 3 (S3), Demonstrate safe equipment use (S3) & follows exercise prescrition (6) and Other: See below Intervention & Plan Plan/Intervention: Instruct warm-up & cool-down if exercising at > 2 METs, Instruct on symptoms of exercise intolerance & actions to take, Instruct & monitor on saf, Assess intial functional capacity & safety risk and Other See below 30-day Reassessments 30 day Reassessments:: Progressing Reassessment Notes & Comments:: Pt oriented to equipment. RPE explained to pt. Pt demonstrates understanding in his daily sessions. Exercise - 60-day Assessment Physician Prescribed Exercise Modalities: SciFit Stepper and SciFit Pro-II Ergometer Exercise - 90-day Assessment Physician Prescribed Exercise Modalities: SciFit Stepper and SciFit Pro-II Ergometer Exercise - Final/Discharge Physician Prescribed Exercise Modalities: SciFit Stepper and SciFit Pro-II Ergometer Nutrition - 30-Day Assessment Program Goals Nutrition Program Goals Patient has diagnosis of Hyperlipidemia (ICD E78)?: Yes Visit Date of Eval: 01/27/25 (Nutrition survey score of 1.) Session #:: 5 Cholesterol/Lipids (Other Core Measures) Determine presence & major risk factors that modify LDL goal: Hypertension or hypertensive medication, Low HDL cholesterol <40 mg/dL*, Family history of premature CHD in Male < 55 years: female <65 yearsFa and Age men > 45 years; women >/= 55 years Outcomes/Goals: Pt IDs own risk factors & lifestyle modifications by Session 10, Verbalizes symptoms of angina & response by session 3., Pt independently manages and Other Additional Outcomes/Goals: Intervention/Plan: Advocate for lipid panel cholesterol medication if applicable, Instruct on personal lipid levels & lipid goals/NCEP guidelines, Instruct on cholesterol and Other additional plan/int Diabetes (Other Core Measures) Diabetes Type: Not Applicable Weight Mgt (Other Care) Height: 5 ft 2 in Weight:: 145 lb BMI: 26.5 Diagnosis Overweight/Obesity BMI> 30% ICD-10 E66: No Diagnosis High BMI/Morbid Obesity BMI> 35% ICD-10 Z68: No Outcomes/Goals: Pt sets, maintains & shows weight loss goal & trend during rehab and Other additional outcomes/goals Intervention/Plan: Instruct on ideal BMI & set weight loss goal w/patient, Assist pt to ID & incorporate diet changes for weight loss by S9, Refer to Structured Weight Loss program as appropriate, Encourage goal of using 250-300dcal per session for weight loss and Other additional plan/interventions Healthy Eating Habits Will attend diet classes:: Yes Outcomes/Goals:: Consume diet rich in vegs,fruits,whole grain/high fiber,fish,lean meat, Limit sat/trans fats,cholesterol & added salts & sugars and Other additional outcome/goals: Intervention/Plan:: Assess current eating habits and Other Additional plan/interventions 30-day Reassessments:: Progressing Reassessment Notes & Comments:: Pt is scheduled to attend nutrition classes. Low sodium heart healthy diet encouraged. Education Gave educational materials for:: Signs & symptoms of hypoglycemia, Signs & symptoms of hyperglycemia, Relate diabetes to coronary artery disease and Healthy eating Nutrition - 60-Day Assessment Weight Mgt (Other Care) Height: 5 ft 2 in Weight:: 145 lb BMI: 26.5 Core - 30-Day Assessment Visit Date of Eval: 01/27/25 Session #:: 5 Medication Compliance Preventative Medication(s):: BIMAL inhibitor, Statin/lipid, Beta debo and Eliquis H/O mental health issues: depression, anxiety, or addiction?: No Doesn?t believe in the benefits of treatment?: No Believes medications are unnecessary or harmful?: No Has a concern about medication side effects?: No Expresses concern over the cost of medications?: No Outcomes/Goals: Verbalizes medications,desired effect & common side effects @ DC, Pt self-reports following medication regimen, Keeps card in wallet w/medications listed by DC and Other additional outcome/goals: Interventions/plans: Instruct on medication effects & side effects, Review medication list w/patient every two weeks, Instruct importance of taking meds as ordered & assist problem solving and Other additional Tobacco Use Tobacco Use: Non-smoker Hypertension Hypertension Diagnosis:: Hypertension ICD-10 I10 Resting Blood Pressure:: 128/78 [place] [employer] Hypertension Guidelines Peak Exercise Blood Pressure:: 130/92 Outcomes/Goals: Able to verbalize/achieve optimal blood pressure <130/80, Incorporates diet changes & exercise for blood pressure control by DC and Other additional outcomes/goals Interventions/plan: Instruct on optimal blood pressure, hypertension & medications, Instruct on effects of sodium, alcohol, stress, exercise &hypertension and Other additional plan/interventions 30 day Reassessments:: Progressing Reassessment Notes & Comments:: Pt's BP's are within AHA normal limits. Will continue to monitor and report to pt's physician if necessary. Tobacco Cessation Referral Smoking Cessation Referral:: No Individual Education/Counseling:: No Education Schedule Given:: Yes Psychosocial - 30-Day Assess VIsit Date of Eval: 01/27/25 Session #:: 5 History of previous Mental disease:: No Psychosocial Test Tool Used:: [employer] QOL Cardiac phq-9 Severity See PHQ-9 Score: 10 Referral to Behavioral Health PS - Interventions: Yes: Attend Stress Management Classes Outcomes/Goals: See list Psychosocial Outcomes/Goals:: ID's personal stressors & 2 strategies to manage stress by discharge and Other Additional outcome/goals: Intervention/Plan: See List Interventions/Plan:: Assess stressors,coping strategies & signs of derpression on admission, Instruct/assist pt to develop coping & personal stress Mgt strategies, Refer to Behavioral Health if appropriate, Refer to Physician if appropriate, Instruct patient to recognize signs & symptoms of depression, Instruct patient to recog and Other additional plan/intervention 30-day Reassessments: 30 day Reassessments:: Progressing Reassessment Notes & Comments:: Pt denies any psychosocial issues at this time. Pt to attend stress management class. Will reassess every 30 days. Psychosocial - 60-Day Assess Referral to Behavioral Health PS - Interventions: Yes: Attend Stress Management Classes Outcomes/Goals: See list Psychosocial Outcomes/Goals:: ID's personal stressors & 2 strategies to manage stress by discharge and Other Additional outcome/goals: Psychosocial - 90-Day Assess Referral to Behavioral Health PS - Interventions: Yes: Attend Stress Management Classes Psychosocial - Final Assessmen Referral to Behavioral Health PS - Interventions: Yes: Attend Stress Management Classes Nutrition - 90-Day Assessment Weight Mgt (Other Care) Height: 5 ft 2 in Weight:: 145 lb BMI: 26.5 Nutrition - Final Assessment Weight Mgt (Other Care) Height: 5 ft 2 in Weight:: 145 lb BMI: 26.5
[2025-01-27 08:45] VITALS: BP 128/78; BMI 26.5
== END 2025-02-19 23:59 ==
LOC: CR 13:00
PROVIDERS: PCP Internal Medicine; Referring Provider Internal Medicine Cardiovascular Disease; Visit Provider Internal Medicine Cardiovascular Disease
DX: Z95.2 Presence of prosthetic heart valve (principal)
CPT/HCPCS: 93798

== ENCOUNTER 2025-02-13 13:41 | Inpatient (IN) | payer MEDICARE, SELFPAY ==
[2025-01-27 08:45] VITALS: BMI 26.5
[2025-02-13] VITALS (10 sets, daily range): BP systolic 124–134; BP diastolic 94–113; PULSE 96–103; RESP 16–28; TEMP 35.8–36.8; O2SAT 94–100; BMI 28.3; BMI 27.1
--- NOTE | 2025-02-13 14:24 | RAD_ITS ---
PROCEDURE: CHEST PA AND LATERAL 02/13/2025 REASON FOR EXAM: SOB TECHNIQUE: Procedure Code: RADCXR Modality: DX Procedure: CHEST PA AND LATERAL COMPARISON: 12/27/2024 chest x-ray FINDINGS: Stable minimal bilateral pleural effusions. Associated passive atelectatic airspace disease of the lower lobes. Exaggerated dorsal kyphosis, unchanged. Mild chronic compression deformities of the lower thoracic vertebral bodies, unchanged. Enlarged cardiac silhouette. Normal mediastinum and timothy. Normal visualized pulmonary arteries. Atheromatous plaques of the visualized aortic arch and descending thoracic aorta. Diffuse spondylosis of the visualized thoracic spine. Normal visualized ribs, clavicles. Degenerative joint disease. There is no demonstrated abnormality of the visualized soft tissue structures of the upper abdomen. RAD/Chest PA and Lateral IMPRESSION: Unchanged minimal bilateral pleural effusions. Associated passive atelectatic airspace disease of the lower lobes. Exaggerated kyphosis, unchanged. Mild chronic compression deformities of the lower thoracic vertebral bodies, unchanged. Enlarged cardiac silhouette. Reading Location: [facility]
[2025-02-13 14:54] LABS: Hematocrit 43.0 % (37-47); Hemoglobin 13.6 g/dL (12.0-15.0); Immature Granulocytes Count 0.110 X10^3/uL (0.0-0.0); Mean Corp Hgb Conc 31.6 g/dL (32-36); Mean Corpuscular Volume 90.0 fL (81-99); Mean Platelet Vol. 12.0 fl (6.2-12.0); NRBC Flagged by Analyzer 0 % (0-5); Platelet Count 179 K/mm3 (150-450); RBC Distribution Width CV 17.4 % (11.6-14.6); RBC Distribution Width SD 57.1 fl (35.1-43.9); Red Blood Count 4.78 M/mm3 (4.2-5.4); White Blood Count 11.5 K/mm3 (4.4-11.0)
--- OUTSIDE RECORDS SUMMARY | 2025-02-13 15:00 | XMS RPT_ITS | CCD ---
Author Organization [facility] CliniSymd Care Team Providers Care Court Bailiff Name Role Phone ABEL HOLM Unavailable Unavailable [...] Logan Tripathi Other Provider Unavailab tomas Palencia INSOLE TAPE STITCHER [facility], INSOLE TAPE STITCHER [facility]CO-C Diana Other Provider Dr. Alberto Gregorio Attending [...] Logan Tripathi Other Provider Unavailab tomas Palencia INSOLE TAPE STITCHER [employer], INSOLE TAPE STITCHER UCO-C Diana Other Provider Dr. Alberto Gregorio Attending [...] Dr. Trinidad Primary Care Provider Floyd, Dr. rTinidad Referring Provider Dr. Torsten Vann Attending Provider Floyd, Dr. Trinidad Primary Care Provider Floyd, Dr. Trinidad Referring Provider Dr. Torsten Vann Attending Provider Roof INSOLE TAPE STITCHER [employer], INSOLE TAPE STITCHER UCO-Pasquale Prince Attending Provider Donaldo, Dr. Trinidad Primary Care Provider Floyd, Dr. Trinidad Referring Provider Dr. Jordan Marte Attending Provider Dr. Amos Floyd Primary Care Provider Donaldo, Dr. Trinidad Referring Provider Roof INSOLE TAPE STITCHER [facility], INSOLE TAPE STITCHER UCO-Pasquale Prince Attending Provider Dr. Jordan Marte Attending Provider ELISA MCDONOUGH Admitting Unavailable ELISA MCDONOUGH Attending Unavailable AMOS FLOYD Primary Care Unavailable Amos Floyd MD Primary Care Provider ELISA MCDONOUGH Admitting Unavailable AMOS FLOYD Primary Care Unavailable JAZMINE BRITT Attending Unavailable ALEXANDER GREGORY Consulting Unavailable Amos Floyd MD Primary Care Provider Fide MANAGER TRACK.DESIGN ENGINEER PRODUCTS, Rocio M Unavailable Dr. Amos Floyd MD Primary Care Provider Dr. Jordan Marte MD Other Provider Basim Shannon Attending Provider Basim Shannon Referring Provider Dr. Torsten Vann MD Other Provider Dr. Jennifer Tarango DO Other Provider [phone] Jennifer Tarango DO Attending Provider Dr. [...] Dr. Jennifer Tarango DO Other Provider [phone] Heaven Michel Attending Provider Dr. Amos Floyd [...] Unavailable Unavailable Amos Floyd Primary Care Provider Donaldo ZELAYA, Dr. Trinidad Primary Care Provider Estuardo ZELAYA, Dr. Ortega Other Provider Basim Shannon Attending Provider Basim Shannon Referring Provider King NATHALIE, Dr. Sarmiento Other Provider Sukhdeep MARTINEZ, Dr. Coates Other Provider Tucker Mckeon Attending Provider Donaldo ZELAYA, Dr. Trinidad Referring Provider Lizabeth ZELAYA, Dr. Scotty Mayfield Attending Provider Cortez ZELAYA, Dr. Ted Hightower Referring Provider MEMO CANAS Attending Provider MEMO CANAS Referring Provider ARELIS SMITH Attending Unavailable ROCIO ELIZALDE Referring Unavailable AMOS FLOYD Primary Care Unavailable Donaldo ZELAYA, Dr. Trinidad Primary Care Provider Estuardo ZELAYA, Dr. Ortega Other Provider Basim Shannon Attending Provider Basim Shannno Referring Provider King NATHALIE, Dr. Sarmiento Other Provider Dr. Jennifer Tarango DO Other Provider Tucker Mckeon Attending Provider Aj Mckeonyler Referring Provider Estuardo ZELAYA, Dr. Ortega Attending Provider Basim Ocampo Attending Provider Basim Ocampo Referring Provider Dr. Amos Floyd MD Primary Care Provider MEMO CANAS Attending Provider MEMO CANAS Referring Provider Donaldo ZELAYA, Dr. Trinidad Primary Care Physician Heaven Michel Attending Physician Estuardo ZELAYA, Dr. Ortega Attending Physician Dr. Obinna Frye MD Emergency Department Physician Dr. Nixon Silverio DO Admitting Physician Franci vailable Dr. Nixon Silverio DO Nurse Practitioner Unav ailable Paula MARTINEZ, Dr. Gill Attending Physician Cortez ZELAYA, Dr. Ted Hightower Nurse Practitioner Dr. Ted Toro MD Attending Physician Lizabeth ZELAYA, Dr. Scotty Mayfield Attending Physician Dr. Jairo Mitchell DO Nurse Practitioner MEMO CANAS Attending Physician Basim Ocampo Attending Physician MEMO CANAS Attending Physician Donaldo ZELAYA, Dr. Trinidad Primary Care Physician Dr. Amos Floyd MD Referring Provider Dr. Jordan Marte MD Attending Physician Sukhdeep MARTINEZ, Dr. Coates Attending Physician Dr. Jennifer Tarango DO Referring Provider Sukhdeep MARTINEZ, Dr. Coates Nurse Practitioner BALDO DE LA CRUZ Attending Unavailable FLOYD, AMOS Primary Care Unavailable BASIM JOEL Referring Unavailable BASIM JOEL Attending Unavailable FLOYD, AMOS Primary Care Unavailable BASIM JOEL Attending Unavailable FLOYD, AMOS Primary Care Unavailable FLOYD, AMOS Primary Care Unavailable MEMO CANAS Attending Unavailable BASIM JOEL Attending Unavailable FLOYD, AMOS Primary Care Unavailable DYLON GUPTA Attending Unavailable FLOYD, AMOS Primary Care Unavailable CRISTIN, DYLON Attending Unavailable FLOYD, AMOS Primary Care Unavailable CRISTIN, DYLON Referring Unavailable FLOYD, AMOS Primary Care Unavailable MEMO CANAS Attending Unavailable SHAHBAZBENDMEMO THOMAS Admitting Unavailable DYLON GUPTA Attending Unavailable FLOYD, AMOS Primary Care Unavailable CRISTIN, DYLON Referring Unavailable BASIM JOEL Attending Unavailable FLOYD, AMOS Primary Care Unavailable FLOYD, JIE Attending Unavailable FLOYD, JIE Primary Care Unavailable SELF Referring Unavailable FLOYD, JIE Attending Unavailable FLOYD, JIE Primary Care Unavailable FLOYD, JIE Primary Care Unavailable ARELIS SMITH Referring Unavailable FLOYD, JIE Primary Care Unavailable ARELIS SMITH Referring Unavailable FLOYD, JIE Attending Unavailable FLOYD, JIE Primary Care Unavailable FLOYD, JIE Primary Care Unavailable JAVIER ABBOTT Referring Unavailable FLOYD, JIE Primary Care Unavailable FLOYD, JIE Attending Unavailable FLOYD, JIE Primary Care Unavailable FLOYD, JIE Referring Unavailable FLOYD, JIE Primary Care Unavailable FLOYD, JIE Referring Unavailable FLOYD, JIE Primary Care Unavailable FLOYD, JIE Primary Care Unavailable FLOYD, JIE Primary Care Unavailable FLOYD, JIE Attending Unavailable FLOYD, JIE Primary Care Unavailable SELF Referring Unavailable Jordan Marte Attending Unavailable Floyd, Amos Primary Care Unavailable Basim Shannon Referring Unavail able Basim Shannon Attending Unavail able Estuardo, [place] Consulting Unavailable Floyd, Amos Primary Care Unavailable Edawr, Torsten Consulting Unavailable Sukhdeep, Jennifer Consulting Unavailable Basim Shannon Referring Unavail able Estuardo, [place] Consulting Unavailable Basim Shannon Attending Unavail able Floyd, Amos Primary Care Unavailable Edwar, Torsten Consulting Unavailable Sukhdeep, Jennifer Consulting Unavailable Sukhdeep Jennifer Attending Unavailable Floyd, Amos Primary Care Unavailable Basim Joel Referring Unavailable Basmi Joel Attending Unavailable Floyd, Amos Primary Care Unavailable Estuardo, [place] Referring Unavailable Estuardo, [place] Attending Unavailable Floyd, Amos Primary Care Unavailable Basim Shannon Referring Unavail able Basim Shannon Attending Unavail able Estuardo, [place] Consulting Unavailable Floyd, Amos Primary Care Unavailable Edwar, Torsten Consulting Unavailable Sukdheep, Jennifer Consulting Unavailable Basim Shannon Referring Unavail able Basim Shannon Attending Unavail able Estuardo, Jordan Consulting Unavailable Floyd, Amos Primary Care Unavailable Edwar, Torsten Consulting Unavailable Sukhdeep, Jennifer Consulting Unavailable Jairo Mitchell Attending Unavailable Nixon Silverio Referring Unavailable Nixon Silverio Consulting Unavailable Floyd, Amos Primary Care Unavailable Nixon Silverio Admitting Unavailable Ted Toro Consulting Unavailable Estuardo, Jordan Referring Unavailable Estuardo, Jordan Attending Unavailable Floyd, Amos Primary Care Unavailable Sukhdeep, Jennifer Referring Unavailable SukhdeepCarlosJennifer Attending Unavailable Floyd, Amos Primary Care Unavailable Sukhdeep, Jennifer Consulting Unavailable Basim Joel Referring Unavailable Basim Joel Attending Unavailable Floyd, Amos Primary Care Unavailable Sukhdeep, Jennifer Referring Unavailable Sukhdeep Jennifer Attending Unavailable Floyd, Amos Primary Care Unavailable Tucker Reyes Referring Unavailable Tucker Reyes Attending Unavailable Floyd, Amos Primary Care Unavailable BERTO CRUZ Referring Unavailable BERTO CRUZ Attending Unavailable Floyd, Amos Primary Care Unavailable Basim Shannon Referring Unavail able Basim Shannon Attending Unavail able Estuardo, Jordan Consulting Unavailable Floyd, Amos Primary Care Unavailable Edwar, Torsten Consulting Unavailable Sukhdeep, Jennifer Consulting Unavailable Estuardo, [place] Referring Unavailable Estuardo, [place] Attending Unavailable Floyd, Amos Primary Care Unavailable BERTO CRUZ Referring Unavailable SEEAUERBERTO Attending Unavailable Floyd, Amos Primary Care Unavailable DemiterTucker Attending Unavailable Floyd, Amos Primary Care Unavailable Floyd, Amos Referring Unavailable Estuardo, Jordan Attending Unavailable Floyd, Amos Primary Care Unavailable Sukhdeep, Jennifer Referring Unavailable Sukhdeep, Jennifer Attending Unavailable Floyd, Amos Primary Care Unavailable Kotsonis, Tde F Consulting Unavailable Kotsonis, Ted F Admitting Unavailable KoramRita Attending Unavailable Floyd, Amos Primary Care Unavailable Nixon Smyth Attending Unavailable Floyd, Amos Primary Care Unavailable Tucker Reyes Attending Unavailable DemiterKater Referring Unavailable Floyd, Amos Primary Care Unavailable Jairo Mitchell Attending Unavailable Nixon Silverio Admitting Unavailable Nixon Silverio Referring Unavailable Floyd, Amos Primary Care Unavailable Nixon Silverio Consulting Unavailable NachooniTed sims F Consulting Unavailable Jairo Mitchell Consulting Unavailable Estuardo, Jordan Consulting Unavailable Nixon Silverio Attending Unavailable Ted Toro F Attending Unavailable Kotsonis, Ted F Consulting Unavailable Kotsonis, Ted F Admitting Unavailable Floyd, Amos Primary Care Unavailable Buddy Toroolas F Attending Unavailable Rita Pal Attending Unavailable Koram, Rita Shy Consulting Unavailable Floyd, Amos Primary Care Unavailable Estuardo, [place] Attending Unavailable Heaven Bolton NP Attending Unavailable Floyd, Amos Primary Care Unavailable Floyd, Amos Referring Unavailable Estuardo, [place] Attending Unavailable Floyd, Amos Primary Care Unavailable Floyd, Amos Referring Unavailable Basim Shannon Referring Unavail able Basim Shannon Attending Unavail able Estuardo, [place] Consulting Unavailable Floyd, Amos Primary Care Unavailable Edwar, Torsten Consulting Unavailable Jennifer Tarango Consulting Unavailable Allergies Allergy Classification Reported Allergen(s) Allergy Type Date of Onset Reaction(s) Facility Penicillins (antibiotic) (3 sources) Penicillins Drug Allergy 3 [facility] Quinolones (antibiotic) (3 sources) Ciprofloxacin Drug Allergy 0 [facility] (20 sources) ciprofloxacin; Translations: [CIPROFLOXACIN] Drug Allergy 0 Rash, Other [facility] Repository (20 sources) Penicillins; Translations: [PENICILLINS] Propensity to adverse reactions (disorder) 3 Rash, Other [facility] Repository (1 source) ALLERGIES NOT ON FILE; Translations: [ALLERGIES NOT ON FILE] Propensity to adverse reactions (disorder) [facility] Repository (20 sources) amLODIPine; Translations: [AMLODIPINE] Drug Allergy 4 [facility] Work Phone: Medications Current Medications Medication [...] Start: 12-14-2023 take 1 tablet by dima once daily ascorbic acid (Vitamin C) 1000 [...] Comment on above: Take 1 capsule by mo [facility] two times a day for 5 [...] 60 mg injection (PROLIA) Start: 11-30-2023 End: 10-05-2025 60 mg, SUBCUTANEOUS, EVERY 6 MONTHS, 2 doses, First dose on Madalyn 11/30/23 at 1230, Last dose on Mon05/28/24 at [...] Per Dr. Torsten Vann, endocrinology. Due mid-June estradiol 0.1 mg/ml vaginal cream (3 sources) [...] dose nasal spray (13 sources) Anticholinergic Start: 025 ipratropium bromide (ATROVENT) 42 mcg (0.06 %) [...] oral tablet (8 sources) beta-Adrenergic Debo Start: End: take 1 tablet by mouth [...] (20 sources) HMG-CoA Reductase Inhibitor Start: 07-18-19 End: 10-30-19 take 1 tablet by mouth once daily [...] Start: 05-24-2023 take 1 tablet by dima th every four hours as needed acetaminophen (Tylenol) [...] HOURS NEEDED as needed for Pain 10 March 30, 2016 1:00am May 21, 2018 [...] tablet Discontinued 2.5 mg PO daily 30 November 28, 2023 11:17am April 29, 2024 [...] mg tablet Discontinued 2.5 mg PO DAILY 19 08April 12, 2021 1:00am July 12, 2021 11:43am Start: 07-17-2020 End: 01-20-2021 take 1 tablet by mouth once daily Amlodipine 5 mg tablet Discontinued 5 mg PO DAILY July 17, 2020 12:00am January 20, 2021 [...] Comment on above: Take 400 Units by mo [facility] once daily. cyproheptadine hydrochloride 4 mg oral tablet (20 sources) Start: End: take 1 tablet by mouth three times daily Cyproheptadine 4 mg tablet Discontinued 4 mg PO THREE TIMES A DAY 66 22 0 August 01, 2018 12:00am August 01, 2019 10:29am 2 ml dupilumab 150 mg/ml prefilled syringe (20 sources) Interleukin-4 Receptor alpha Antagonist Start: 021 End: inject 300 mg by subcutaneous injection every other week dupilumab 300 mg/2 mL subcutaneous syringe (DUPIXENT) Indications: Atopic neurodermatitis Inject 300 mg SQ every 2 weeks 4 mL 11 11/11/2020 12/06/2021 Discontinued Start: 04-02-2020 End: 06-12-2023 inject 300 mg by subcutaneous injection every other week Dupilumab 300 MG/2 ML pen injector Discontinued 300 mg SQ .[id number] April 02, 2020 1:00am April 04, 2020 10:48am sinus Comment on above: Inject 300 mg SQ gwen ry 2 weeks .[id number] Dupilumab (16 sources) Start: End: inject 200 mg by [...] RELIEF) 50 mcg/actuation nasal spray Use 1 [place] in each nostril once daily. 0 07/20/2021 Discontinued Comment on above: Use 1 [place] in each nostril once daily. Use 2 [...] on above: Take 1 tablet by dima every 6 hours as needed (dizziness). menthol 0.0044 mg/mg / zinc oxide 0.206 mg/mg topical ointment (20 sources) Start: 04-08-19 End: 07-18-19 Menthol-Zinc Oxide 1 APPLIC ointment Discontinued 1 NMA TOPICAL 0600,0 0 April 08, 2020 1:00am July 17, 2020 1:19pm skin issues Please contact the information source for Protocol details. Start: 04-08-2020 End: 07-17-2020 Menthol-Zinc Oxide Discontin ued 1 APPLIC TOPICAL 0600,0 April 08, 2020 1:00am July 17, 2020 1:19pm skin issues methotrexate 2.5 mg oral tablet (20 sources) Folate Analog Metabolic Inhibitor Start: 08-01-2018 End: 08-01-2019 Methotrexate Sodium 2.5 mg tablet Discontinued 15 mg PO EVERY WEEK 24 28 0 August 01, 2018 12:00am August 01, 2019 10:29am Start: 08-01-2018 End: 08-01-2019 take 15 mg by mouth every week Methotrexate Sodium Dis continued 15 MG PO EVERY WEEK 24 28 August 01, 2018 12:00am August 01, 2019 [...] other week after this. 6 mL 11 05/25/2022 Active Comment on above: Inject 4 [...] 4 MG tablet Discontinued 4 mg PO MOWEFR April 02, 2020 1:00am April 04, 2020 [...] 2020 11:49am blood thinner Start: 11-11-2019 End: 02-13-2021 take 1 tablet by mouth once Warfarin [...] mg tablet Discont inued 4 mg PO SUMOWE Protocol: Patient Instructed to take:warfarin 3 mg [...] Active Problems Problem Classification Problem Date Documented Date Episodic/Chronic Allergic reactions (20 sources) Atopic neurodermatitis; Translations: [Atopic neurodermatitis] Onset: 11-18-2019 11-18-2019 Chronic Asthma (20 sources) Asthma; Translations: [Unspecified asthma, uncomplicated] Onset: 09-21-2005 Resolved: 07-18-2008 05-24-2023 Chronic Cancer of kidney and renal pelvis (20 sources) Primary malignant neoplasm of kidney; Translations: [Malignant neoplasm of unspecified kidney, except renal pelvis] Onset: 05-08-2020 09-02-2024 Chronic Cancer of kidney and renal pelvis (20 sources) H/O: malignant neoplasm; Translations: [Personal history of other malignant neoplasm of kidney] Onset: 05-24-2023 04-10-2020 Episodic Chronic kidney disease (20 sources) Chronic kidney disease; Translations: [Chronic kidney disease, unspecified] Onset: 08-26-2009 Resolved: 09-23-2020 07-15-2021 Chronic Chronic kidney disease (7 sources) Chronic kidney disease; Translations: [Chronic kidney disease, stage 3b (HCC)] Onset: 07-15-2021 Congestive heart failure; nonhypertensive (20 sources) Acute systolic heart failure; Translations: [Acute systolic (congestive) heart failure] Onset: 09-19-2024 09-19-2024 Chronic Coronary atherosclerosis and other heart disease (20 sources) History of non-ST segment elevation myocardial infarction; Translations: [Old myocardial infarction] Onset: 04-20-2009 Chronic Comment on above: possible coronary em bolism Diabetes mellitus with complications (2 sources) Type 2 diabetes mellitus with diabetic nephropathy; Translations: [Type 2 diabetes mellitus with diabetic nephropathy] Onset: 12-04-2024 Chronic Diseases of white blood cells (20 sources) Leukocytosis; Translations: [Elevated white blood cell count, unspecified] Onset: 08-15-2024 08-07-2024 Chronic Disorders of lipid metabolism (20 sources) Hyperlipidemia; Translations: [Hyperlipidemia, unspecified] Onset: 02-17-2015 Chronic Esophageal disorders (20 sources) Gastroesophageal reflux disease; Translations: [Gastro-esophageal reflux disease without esophagitis] Onset: 05-24-2023 01-20-2021 Chronic Essential hypertension (20 sources) Essential hypertension; Translations: [Essential (primary) hypertension] Onset: 04-14-2020 Chronic Heart valve disorders (20 sources) Aortic valve stenosis; Translations: [Nonrheumatic aortic (valve) stenosis] Onset: 08-04-2022 08-04-2022 Chronic Hypertension with complications and secondary hypertension (20 sources) Hypertensive renal disease; Translations: [Hypertensive chronic kidney disease with stage 1 through stage 4 chronic kidney disease, or unspecified chronic kidney disease] Onset: 05-08-2020 07-15-2021 Chronic Immunizations and screening for infectious disease (10 sources) Vaccination needed; Translations: [Encounter for immunization] Onset: 10-29-2024 Episodic Nonmalignant breast conditions (1 source) Mastodynia; Translations: [Mastodynia] Episodic Nutritional deficiencies (1 source) Vitamin D deficiency, unspecified; Translations: [Avitaminosis D] Onset: 07-05-2024 Chronic Osteoporosis (20 sources) Osteoporosis; Translations: [Age-related osteoporosis without current pathological fracture] Onset: 07-05-2024 Chronic Other aftercare (20 sources) Long-term current use of anticoagulant; Translations: [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] 11-26-2021 Episodic Other aftercare (1 source) Anticoagulant effect; Translations: [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] Episodic Other circulatory disease (20 sources) Orthostatic hypotension; Translations: [Orthostatic hypotension] 11-11-2019 Episodic Other circulatory disease (20 sources) Hypotensive episode; Translations: [Hypotension, unspecified] 04-10-2020 Episodic Other circulatory disease (17 sources) Transient hypotension; Translations: [Hypotension, unspecified] 05-15-2023 Episodic Other connective tissue disease (2 sources) Pain in right foot; Translations: [Pain in right foot] 11-08-2022 Episodic Other connective tissue disease (1 source) Muscle pain; Translations: [Myalgia, unspecified site] 05-24-2023 Episodic Other diseases of kidney and ureters (1 source) Disorder of kidney and ureter, unspecified; Translations: [Disorder of kidney and ureter, unspecified] Onset: 10-07-2024 Episodic Other endocrine disorders (20 sources) [place]'s disease; 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] Onset: 11-24-2022 12-02-2021 Chronic Other endocrine disorders (20 sources) Hypoadrenalism; Translations: [Unspecified adrenocortical insufficiency] Onset: 05-24-2023 Resolved: 07-24-2024 Chronic Other endocrine disorders (17 sources) Primary adrenocortical insufficiency; Translations: [Glucocorticoid deficiency] Onset: 08-15-2024 Chronic Other endocrine disorders (1 source) Unspecified adrenocortical insufficiency; Translations: [Adrenal insufficiency (HCC)] Onset: 06-13-2023 Chronic Other endocrine disorders (1 source) Drug-induced adrenocortical insufficiency; 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)] Onset: 07-05-2024 Chronic Other eye disorders (1 source) Subconjunctival hemorrhage of left eye; Translations: [Conjunctival hemorrhage, left eye] 07-24-2024 Episodic Other inflammatory condition of skin (20 sources) Psoriasis; Translations: [Psoriasis, unspecified] Onset: 09-02-2024 09-02-2024 Chronic Other lower respiratory disease (2 sources) Dyspnea, unspecified; Translations: [Dyspnea, unspecified] Onset: 01-01-2025 Episodic Other nervous system disorders (20 sources) Disorder of autonomic nervous system; Translations: [Disorder of the autonomic nervous system, unspecified] Onset: 10-20-2003 02-17-2015 Chronic Other nutritional; endocrine; and metabolic disorders (20 sources) Hypercalcemia; Translations: [Hypercalcemia] Onset: 03-19-2009 Resolved: 06-13-2023 04-22-2020 Chronic Other nutritional; endocrine; and metabolic disorders (2 sources) Hypercalcemia; Translations: [Hypercalcemia] Onset: 05-24-2023 Chronic Other nutritional; endocrine; and metabolic disorders (20 sources) Hypervitaminosis D; Translations: [Hypervitaminosis D] Onset: 09-02-2024 09-02-2024 Chronic Other screening for suspected conditions (not mental disorders or infectious disease) (5 sources) Imaging result abnormal; Translations: [Abnormal findings on diagnostic imaging of other specified body structures] Onset: 01-01-2024 08-17-2023 Chronic Other upper respiratory disease (20 sources) Chronic rhinitis; Translations: [Chronic rhinitis] Onset: 03-20-2014 03-20-2014 Chronic Other upper respiratory disease (1 source) Chronic rhinitis; Translations: [Chronic nonallergic rhinitis] Onset: 03-20-2014 Chronic Other upper respiratory disease (2 sources) Epistaxis; Translations: [Epistaxis] Onset: 12-28-2024 Episodic Prolapse of female genital organs (20 sources) Midline cystocele; Translations: [Cystocele, midline] Onset: 07-23-2007 Resolved: 02-27-2017 02-27-2017 Chronic Pulmonary heart disease (20 sources) H/O: pulmonary embolus; Translations: [Personal history of pulmonary embolism] Onset: 08-19-2022 Episodic Residual codes; unclassified (1 source) Confusional state; Translations: [Disorientation, unspecified] 05-23-2023 Episodic Screening and history of mental health and substance abuse codes (2 sources) Patient encounter status; Translations: [Encounter for screening for depression] 01-23-2024 Episodic Syncope (20 sources) Syncope and collapse; Translations: [Syncope and collapse] Onset: 09-02-2024 11-21-2019 Episodic Thyroid disorders (20 sources) Non-toxic multinodular goiter; Translations: [Nontoxic multinodular goiter] Onset: 12-11-2007 Resolved: 09-23-2017 09-23-2017 Chronic Unclassified (1 source) Unknown / UNK(Unknown) Onset: 01-17-2017 Unclassified (1 source) Z95.2 - Presence of [...] obstruction] Onset: 7 Resolved: 7 08-24-2016 Episodic Calculus of urinary tract (4 sources) History of calculus of kidney; Translations: [Personal history of urinary calculi] Onset: 5 09-20-2024 Episodic Cancer of stomach (20 sources) Gastrointestinal [...] fracture] Onset: 4 Resolved: 5 11-08-2022 Episodic Genitourinary symptoms and ill-defined conditions (3 sources) Increased frequency of urination; Translations: [Frequency of micturition] Onset: 5 05-24-2023 Episodic Intracranial injury (20 sources) Closed injury [...] 5 11-12-2019 Episodic Other aftercare (3 sources) 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; Translations: [Long-term (current) [...] unspecified] Onset: 5 Episodic Other circulatory disease (1 source) Other [...] with routine healing] Onset: 3 01-19-2023 Episodic Phlebitis; thrombophlebitis and thromboembolism (20 sources) Recurrent deep vein thrombosis; Translations: [Acute embolism and thrombosis of unspecified deep veins of unspecified lower extremity] Onset: 0 Resolved: 4 07-15-2021 Episodic Residual codes; unclassified (20 sources) Acquired [...] Test Name Value Interpretation Reference Range Facility Basic Metabolic Profile (BMP )on 01-04-2025 BUN Normal - [facility] Comment on above: Result Comment: Canc elled via OM: Order cancelled - Patient discharged Performed By: #### L 500.2500, L100.0100 ####[facility] [address] [place], [address] BUN/CRE Normal - [facility] Comment on above: Result Comment: Canc elled via OM: Order cancelled - Patient discharged Performed By: #### L 500.2500, L100.0100 ####[facility] [address] [place], [address] Calcium Normal 7.6-11.0 [facility] Comment on above: Result Comment: Canc elled via OM: Order cancelled - Patient discharged Performed By: #### L 500.2500, L100.0100 ####[facility] [address] [place], [address] CL Normal 98-108 [facility] Comment on above: Result Comment: Canc elled via OM: Order cancelled - Patient discharged Performed By: #### L 500.2500, L100.0100 ####[facility] [address] [place], [address] CO2 Normal 21.0-32.0 [facility] Comment on above: Result Comment: Canc elled via OM: Order cancelled - Patient discharged Performed By: #### L 500.2500, L100.0100 ####[facility] [address] [place], [address] CREAT,SERUM Normal 0.70-1.20 [facility] Comment on above: Result Comment: Canc elled via OM: Order cancelled - Patient discharged Performed By: #### L 500.2500, L100.0100 ####[facility] [address] [place], [address] eGFR Normal >60 [facility] Comment on above: Result Comment: Canc elled via OM: Order cancelled - Patient discharged Performed By: #### L 500.2500, L100.0100 ####[facility] [address] [place], [address] GAP Normal 5-15 [facility] Comment on above: Result Comment: Canc elled via OM: Order cancelled - Patient discharged Performed By: #### L 500.2500, L100.0100 ####[facility] [address] [place], [address] GLU Normal 70-99 [facility] Comment on above: Result Comment: Canc elled via OM: Order cancelled - Patient discharged Performed By: #### L 500.2500, L100.0100 ####[facility] [address] [place], [address] Potassium Normal 3.3-5.1 [facility] Comment on above: Result Comment: Canc elled via OM: Order cancelled - Patient discharged Performed By: #### L 500.2500, L100.0100 ####[facility] [address] [place], [address] Basic Metabolic Profile (BMP) Normal 133-145 [facility] Comment on above: Result Comment: Canc elled via OM: Order cancelled - Patient discharged Performed By: #### L 500.2500, L100.0100 ####[facility] [address] [place], [address] CBC W/Diff, Automatedon 11-1 Absolute Neut Normal 2.0-7.7 [facility] Comment on above: Result Comment: Canc elled via OM: Order cancelled - Patient discharged Performed By: #### L 500.2500, L100.0100 ####[facility] [address] [place], [address] HCT Normal 37-47 [facility] Comment on above: Result Comment: Canc elled via OM: Order cancelled - Patient discharged Performed By: #### L 500.2500, L100.0100 ####[facility] [address] [place], [address] HGB Normal 12.0-15.0 [facility] Comment on above: Result Comment: Canc elled via OM: Order cancelled - Patient discharged Performed By: #### L 500.2500, L100.0100 ####[facility] [address] [place], [address] MCH Normal 27.0-32.0 [facility] Comment on above: Result Comment: Canc elled via OM: Order cancelled - Patient discharged Performed By: #### L 500.2500, L100.0100 ####[facility] [address] [place], [address] MCHC Normal 32-36 [facility] Comment on above: Result Comment: Canc elled via OM: Order cancelled - Patient discharged Performed By: #### L 500.2500, L100.0100 ####[facility] [address] [place], [address] MCV Normal 81-99 [facility] Comment on above: Result Comment: Canc elled via OM: Order cancelled - Patient discharged Performed By: #### L 500.2500, L100.0100 ####[facility] [address] [place], [address] NEUT% Normal 47-70 [facility] Comment on above: Result Comment: Canc elled via OM: Order cancelled - Patient discharged Performed By: #### L 500.2500, L100.0100 ####[facility] [address] [place], [address] PLT Normal 150-450 [facility] Comment on above: Result Comment: Canc elled via OM: Order cancelled - Patient discharged Performed By: #### L 500.2500, L100.0100 ####[facility] [address] [place], [address] RBC Normal 4.2-5.4 [facility] Comment on above: Result Comment: Canc elled via OM: Order cancelled - Patient discharged Performed By: #### L 500.2500, L100.0100 ####[facility] [address] [place], [address] RDW CV Normal 11.6-14.6 [facility] Comment on above: Result Comment: Canc elled via OM: Order cancelled - Patient discharged Performed By: #### L 500.2500, L100.0100 ####[facility] [address] [place], [address] RDW SD Normal 35.1-43.9 [facility] Comment on above: Result Comment: Canc elled via OM: Order cancelled - Patient discharged Performed By: #### L 500.2500, L100.0100 ####[facility] [address] [place], [address] WBC Normal 4.4-11.0 [facility] Comment on above: Result Comment: Canc elled via OM: Order cancelled - Patient discharged Performed By: #### L 500.2500, L100.0100 ####[facility] [address] [place], [address] Basic Metabolic Profile (BMP )on 01-03-2025 BUN Normal 4-19 [facility] Comment on above: Result Comment: Canc elled via OM: Order cancelled - Patient discharged Performed By: #### L 500.2500, L100.0100 ####[facility] [address] [place], [address] BUN/CRE Normal 10-20 [facility] Comment on above: Result Comment: Canc elled via OM: Order cancelled - Patient discharged Performed By: #### L 500.2500, L100.0100 ####[facility] [address] [place], [address] Calcium Normal 7.6-11.0 [facility] Comment on above: Result Comment: Canc elled via OM: Order cancelled - Patient discharged Performed By: #### L 500.2500, L100.0100 ####[facility] [address] [place], [address] CL Normal 98-108 [facility] Comment on above: Result Comment: Canc elled via OM: Order cancelled - Patient discharged Performed By: #### L 500.2500, L100.0100 ####[facility] [address] [place], [address] CO2 Normal 21.0-32.0 [facility] Comment on above: Result Comment: Canc elled via OM: Order cancelled - Patient discharged Performed By: #### L 500.2500, L100.0100 ####[facility] [address] [place], [address] CREAT,SERUM Normal 0.70-1.20 [facility] Comment on above: Result Comment: Canc elled via OM: Order cancelled - Patient discharged Performed By: #### L 500.2500, L100.0100 ####[facility] [address] [place], [address] eGFR Normal >60 [facility] Comment on above: Result Comment: Canc elled via OM: Order cancelled - Patient discharged Performed By: #### L 500.2500, L100.0100 ####[facility] [address] [place], [address] GAP Normal 5-15 [facility] Comment on above: Result Comment: Canc elled via OM: Order cancelled - Patient discharged Performed By: #### L 500.2500, L100.0100 ####[facility] [address] [place], [address] GLU Normal 70-99 [facility] Comment on above: Result Comment: Canc elled via OM: Order cancelled - Patient discharged Performed By: #### L 500.2500, L100.0100 ####[facility] [address] [place], [address] Potassium Normal 3.3-5.1 [facility] Comment on above: Result Comment: Canc elled via OM: Order cancelled - Patient discharged Performed By: #### L 500.2500, L100.0100 ####[facility] [address] [place], [address] Basic Metabolic Profile (BMP) Normal 133-145 [facility] Comment on above: Result Comment: Canc elled via OM: Order cancelled - Patient discharged Performed By: #### L 500.2500, L100.0100 ####[facility] [address] [place], [address] CBC W/Diff, Automatedon 11-1 Absolute Neut Normal 2.0-7.7 [facility] Comment on above: Result Comment: Canc elled via OM: Order cancelled - Patient discharged Performed By: #### L 500.2500, L100.0100 ####[facility] [address] [place], [address] HCT Normal 37-47 [facility] Comment on above: Result Comment: Canc elled via OM: Order cancelled - Patient discharged Performed By: #### L 500.2500, L100.0100 ####[facility] [address] [place], [address] HGB Normal 12.0-15.0 [facility] Comment on above: Result Comment: Canc elled via OM: Order cancelled - Patient discharged Performed By: #### L 500.2500, L100.0100 ####[facility] [address] [place], [address] MCH Normal 27.0-32.0 [facility] Comment on above: Result Comment: Canc elled via OM: Order cancelled - Patient discharged Performed By: #### L 500.2500, L100.0100 ####[facility] [address] [place], [address] MCHC Normal 32-36 [facility] Comment on above: Result Comment: Canc elled via OM: Order cancelled - Patient discharged Performed By: #### L 500.2500, L100.0100 ####[facility] [address] [place], [address] MCV Normal 81-99 [facility] Comment on above: Result Comment: Canc elled via OM: Order cancelled - Patient discharged Performed By: #### L 500.2500, L100.0100 ####[facility] [address] [place], [address] NEUT% Normal 47-70 [facility] Comment on above: Result Comment: Canc elled via OM: Order cancelled - Patient discharged Performed By: #### L 500.2500, L100.0100 ####[facility] [address] [place], [address] PLT Normal 150-450 [facility] Comment on above: Result Comment: Canc elled via OM: Order cancelled - Patient discharged Performed By: #### L 500.2500, L100.0100 ####[facility] [address] [place], [address] RBC Normal 4.2-5.4 [facility] Comment on above: Result Comment: Canc elled via OM: Order cancelled - Patient discharged Performed By: #### L 500.2500, L100.0100 ####[facility] [address] [place], [address] RDW CV Normal 11.6-14.6 [facility] Comment on above: Result Comment: Canc elled via OM: Order cancelled - Patient discharged Performed By: #### L 500.2500, L100.0100 ####[facility] [address] [place], [address] RDW SD Normal 35.1-43.9 [facility] Comment on above: Result Comment: Canc elled via OM: Order cancelled - Patient discharged Performed By: #### L 500.2500, L100.0100 ####[facility] [address] [place], [address] WBC Normal 4.4-11.0 [facility] Comment on above: Result Comment: Canc elled via OM: Order cancelled - Patient discharged Performed By: #### L 500.2500, L100.0100 ####[facility] [address] [place], [address] Basic Metabolic Profile (BMP )on 01-02-2025 BUN Normal 4-19 [facility] Comment on above: Result Comment: Canc elled via OM: Order cancelled - Patient discharged Performed By: #### L 100.0100, L500.2500 ####[facility] [address] [place], [address] BUN/CRE Normal 10-20 [facility] Comment on above: Result Comment: Canc elled via OM: Order cancelled - Patient discharged Performed By: #### L 100.0100, L500.2500 ####[facility] [address] [place], [address] Calcium Normal 7.6-11.0 [facility] Comment on above: Result Comment: Canc elled via OM: Order cancelled - Patient discharged Performed By: #### L 100.0100, L500.2500 ####[facility] [address] [place], [address] CL Normal 98-108 [facility] Comment on above: Result Comment: Canc elled via OM: Order cancelled - Patient discharged Performed By: #### L 100.0100, L500.2500 ####[facility] [address] [place], [address] CO2 Normal 21.0-32.0 [facility] Comment on above: Result Comment: Canc elled via OM: Order cancelled - Patient discharged Performed By: #### L 100.0100, L500.2500 ####[facility] [address] [place], [address] CREAT,SERUM Normal 0.70-1.20 [facility] Comment on above: Result Comment: Canc elled via OM: Order cancelled - Patient discharged Performed By: #### L 100.0100, L500.2500 ####[facility] [address] [place], [address] eGFR Normal >60 [facility] Comment on above: Result Comment: Canc elled via OM: Order cancelled - Patient discharged Performed By: #### L 100.0100, L500.2500 ####[facility] [address] [place], [address] GAP Normal 5-15 [facility] Comment on above: Result Comment: Canc elled via OM: Order cancelled - Patient discharged Performed By: #### L 100.0100, L500.2500 ####[facility] [address] [place], [address] GLU Normal 70-99 [facility] Comment on above: Result Comment: Canc elled via OM: Order cancelled - Patient discharged Performed By: #### L 100.0100, L500.2500 ####[facility] [address] [place], [address] Potassium Normal 3.3-5.1 [facility] Comment on above: Result Comment: Canc elled via OM: Order cancelled - Patient discharged Performed By: #### L 100.0100, L500.2500 ####[facility] [address] [place], [address] Basic Metabolic Profile (BMP) Normal 133-145 [facility] Comment on above: Result Comment: Canc elled via OM: Order cancelled - Patient discharged Performed By: #### L 100.0100, L500.2500 ####[facility] [address] [place], [address] CBC W/Diff, Automatedon 11- Absolute Neut Normal 2.0-7.7 [facility] Comment on above: Result Comment: Canc elled via OM: Order cancelled - Patient discharged Performed By: #### L 100.0100, L500.2500 ####[facility] [address] [place], [address] HCT Normal 37-47 [facility] Comment on above: Result Comment: Canc elled via OM: Order cancelled - Patient discharged Performed By: #### L 100.0100, L500.2500 ####[facility] [address] [place], [address] HGB Normal 12.0-15.0 [facility] Comment on above: Result Comment: Canc elled via OM: Order cancelled - Patient discharged Performed By: #### L 100.0100, L500.2500 ####[facility] [address] [place], [address] MCH Normal 27.0-32.0 [facility] Comment on above: Result Comment: Canc elled via OM: Order cancelled - Patient discharged Performed By: #### L 100.0100, L500.2500 ####[facility] [address] [place], [address] MCHC Normal 32-36 [facility] Comment on above: Result Comment: Canc elled via OM: Order cancelled - Patient discharged Performed By: #### L 100.0100, L500.2500 ####[facility] [address] [place], [address] MCV Normal 81-99 [facility] Comment on above: Result Comment: Canc elled via OM: Order cancelled - Patient discharged Performed By: #### L 100.0100, L500.2500 ####[facility] [address] [place], [address] NEUT% Normal 47-70 [facility] Comment on above: Result Comment: Canc elled via OM: Order cancelled - Patient discharged Performed By: #### L 100.0100, L500.2500 ####[facility] [address] [place], [address] PLT Normal 150-450 [facility] Comment on above: Result Comment: Canc elled via OM: Order cancelled - Patient discharged Performed By: #### L 100.0100, L500.2500 ####[facility] [address] [place], [address] RBC Normal 4.2-5.4 [facility] Comment on above: Result Comment: Canc elled via OM: Order cancelled - Patient discharged Performed By: #### L 100.0100, L500.2500 ####[facility] [address] [place], [address] RDW CV Normal 11.6-14.6 [facility] Comment on above: Result Comment: Canc elled via OM: Order cancelled - Patient discharged Performed By: #### L 100.0100, L500.2500 ####[facility] [address] [place], [address] RDW SD Normal 35.1-43.9 [facility] Comment on above: Result Comment: Canc elled via OM: Order cancelled - Patient discharged Performed By: #### L 100.0100, L500.2500 ####[facility] [address] [place], [address] WBC Normal 4.4-11.0 [facility] Comment on above: Result Comment: Canc elled via OM: Order cancelled - Patient discharged Performed By: #### L 100.0100, L500.2500 ####[facility] [address] [place], [address] Basic Metabolic Profile (BMP )on 01-01-2025 BUN Normal 4-19 [facility] Comment on above: Result Comment: Canc elled via OM: Order cancelled - Patient discharged Performed By: #### L 500.2500, L100.0100 ####[facility] [address] [place], [address] BUN/CRE Normal 10-20 [facility] Comment on above: Result Comment: Canc elled via OM: Order cancelled - Patient discharged Performed By: #### L 500.2500, L100.0100 ####[facility] [address] [place], [address] Calcium Normal 7.6-11.0 [facility] Comment on above: Result Comment: Canc elled via OM: Order cancelled - Patient discharged Performed By: #### L 500.2500, L100.0100 ####[facility] [address] [place], [address] CL Normal 98-108 [facility] Comment on above: Result Comment: Canc elled via OM: Order cancelled - Patient discharged Performed By: #### L 500.2500, L100.0100 ####[facility] [address] [place], [address] CO2 Normal 21.0-32.0 [facility] Comment on above: Result Comment: Canc elled via OM: Order cancelled - Patient discharged Performed By: #### L 500.2500, L100.0100 ####[facility] [address] [place], [address] CREAT,SERUM Normal 0.70-1.20 [facility] Comment on above: Result Comment: Canc elled via OM: Order cancelled - Patient discharged Performed By: #### L 500.2500, L100.0100 ####[facility] [address] [place], [address] eGFR Normal >60 [facility] Comment on above: Result Comment: Canc elled via OM: Order cancelled - Patient discharged Performed By: #### L 500.2500, L100.0100 ####[facility] [address] [place], [address] GAP Normal 5-15 [facility] Comment on above: Result Comment: Canc elled via OM: Order cancelled - Patient discharged Performed By: #### L 500.2500, L100.0100 ####[facility] [address] [place], [address] GLU Normal 70-99 [facility] Comment on above: Result Comment: Canc elled via OM: Order cancelled - Patient discharged Performed By: #### L 500.2500, L100.0100 ####[facility] [address] [place], [address] Potassium Normal 3.3-5.1 [facility] Comment on above: Result Comment: Canc elled via OM: Order cancelled - Patient discharged Performed By: #### L 500.2500, L100.0100 ####[facility] [address] [place], [address] Basic Metabolic Profile (BMP) Normal 133-145 [facility] Comment on above: Result Comment: Canc elled via OM: Order cancelled - Patient discharged Performed By: #### L 500.2500, L100.0100 ####[facility] [address] [place], [address] CBC W/Diff, Automatedon 11- Absolute Neut Normal 2.0-7.7 [facility] Comment on above: Result Comment: Canc elled via OM: Order cancelled - Patient discharged Performed By: #### L 500.2500, L100.0100 ####[facility] [address] [place], [address] HCT Normal 37-47 [facility] Comment on above: Result Comment: Canc elled via OM: Order cancelled - Patient discharged Performed By: #### L 500.2500, L100.0100 ####[facility] [address] [place], [address] HGB Normal 12.0-15.0 [facility] Comment on above: Result Comment: Canc elled via OM: Order cancelled - Patient discharged Performed By: #### L 500.2500, L100.0100 ####[facility] [address] [place], [address] MCH Normal 27.0-32.0 [facility] Comment on above: Result Comment: Canc elled via OM: Order cancelled - Patient discharged Performed By: #### L 500.2500, L100.0100 ####[facility] [address] [place], [address] MCHC Normal 32-36 [facility] Comment on above: Result Comment: Canc elled via OM: Order cancelled - Patient discharged Performed By: #### L 500.2500, L100.0100 ####[facility] [address] [place], [address] MCV Normal 81-99 [facility] Comment on above: Result Comment: Canc elled via OM: Order cancelled - Patient discharged Performed By: #### L 500.2500, L100.0100 ####[facility] [address] [place], [address] NEUT% Normal 47-70 [facility] Comment on above: Result Comment: Canc elled via OM: Order cancelled - Patient discharged Performed By: #### L 500.2500, L100.0100 ####[facility] [address] [place], [address] PLT Normal 150-450 [facility] Comment on above: Result Comment: Canc elled via OM: Order cancelled - Patient discharged Performed By: #### L 500.2500, L100.0100 ####[facility] [address] [place], [address] RBC Normal 4.2-5.4 [facility] Comment on above: Result Comment: Canc elled via OM: Order cancelled - Patient discharged Performed By: #### L 500.2500, L100.0100 ####[facility] [address] [place], [address] RDW CV Normal 11.6-14.6 [facility] Comment on above: Result Comment: Canc elled via OM: Order cancelled - Patient discharged Performed By: #### L 500.2500, L100.0100 ####[facility] [address] [place], [address] RDW SD Normal 35.1-43.9 [facility] Comment on above: Result Comment: Canc elled via OM: Order cancelled - Patient discharged Performed By: #### L 500.2500, L100.0100 ####[facility] [address] [place], [address] WBC Normal 4.4-11.0 [facility] Comment on above: Result Comment: Canc elled via OM: Order cancelled - Patient discharged Performed By: #### L 500.2500, L100.0100 ####[facility] [address] [place], [address] Basic Metabolic Profile (BMP )on 12-31-2024 BUN Normal 4-19 [facility] Comment on above: Result Comment: Canc elled via OM: Order cancelled - Patient discharged Performed By: #### L 100.0100, L500.2500 ####[facility] [address] [place], [address] BUN/CRE Normal 10-20 [facility] Comment on above: Result Comment: Canc elled via OM: Order cancelled - Patient discharged Performed By: #### L 100.0100, L500.2500 ####[facility] [address] [place], [address] Calcium Normal 7.6-11.0 [facility] Comment on above: Result Comment: Canc elled via OM: Order cancelled - Patient discharged Performed By: #### L 100.0100, L500.2500 ####[facility] [address] [place], [address] CL Normal 98-108 [facility] Comment on above: Result Comment: Canc elled via OM: Order cancelled - Patient discharged Performed By: #### L 100.0100, L500.2500 ####[facility] [address] [place], [address] CO2 Normal 21.0-32.0 [facility] Comment on above: Result Comment: Canc elled via OM: Order cancelled - Patient discharged Performed By: #### L 100.0100, L500.2500 ####[facility] [address] [place], [address] CREAT,SERUM Normal 0.70-1.20 [facility] Comment on above: Result Comment: Canc elled via OM: Order cancelled - Patient discharged Performed By: #### L 100.0100, L500.2500 ####[facility] [address] [place], [address] eGFR Normal >60 [facility] Comment on above: Result Comment: Canc elled via OM: Order cancelled - Patient discharged Performed By: #### L 100.0100, L500.2500 ####[facility] [address] [place], [address] GAP Normal 5-15 [facility] Comment on above: Result Comment: Canc elled via OM: Order cancelled - Patient discharged Performed By: #### L 100.0100, L500.2500 ####[facility] [address] [place], [address] GLU Normal 70-99 [facility] Comment on above: Result Comment: Canc elled via OM: Order cancelled - Patient discharged Performed By: #### L 100.0100, L500.2500 ####[facility] [address] [place], [address] Potassium Normal 3.3-5.1 [facility] Comment on above: Result Comment: Canc elled via OM: Order cancelled - Patient discharged Performed By: #### L 100.0100, L500.2500 ####[facility] [address] [place], [address] Basic Metabolic Profile (BMP) Normal 133-145 [facility] Comment on above: Result Comment: Canc elled via OM: Order cancelled - Patient discharged Performed By: #### L 100.0100, L500.2500 ####[facility] [address] [place], [address] CBC W/Diff, Automatedon 11-1 Absolute Neut Normal 2.0-7.7 [facility] Comment on above: Result Comment: Canc elled via OM: Order cancelled - Patient discharged Performed By: #### L 100.0100, L500.2500 ####[facility] [address] [place], [address] HCT Normal 37-47 [facility] Comment on above: Result Comment: Canc elled via OM: Order cancelled - Patient discharged Performed By: #### L 100.0100, L500.2500 ####[facility] [address] [place], [address] HGB Normal 12.0-15.0 [facility] Comment on above: Result Comment: Canc elled via OM: Order cancelled - Patient discharged Performed By: #### L 100.0100, L500.2500 ####[facility] [address] [place], [address] MCH Normal 27.0-32.0 [facility] Comment on above: Result Comment: Canc elled via OM: Order cancelled - Patient discharged Performed By: #### L 100.0100, L500.2500 ####[facility] [address] [place], [address] MCHC Normal 32-36 [facility] Comment on above: Result Comment: Canc elled via OM: Order cancelled - Patient discharged Performed By: #### L 100.0100, L500.2500 ####[facility] [address] [place], [address] MCV Normal 81-99 [facility] Comment on above: Result Comment: Canc elled via OM: Order cancelled - Patient discharged Performed By: #### L 100.0100, L500.2500 ####[facility] [address] [place], [address] NEUT% Normal 47-70 [facility] Comment on above: Result Comment: Canc elled via OM: Order cancelled - Patient discharged Performed By: #### L 100.0100, L500.2500 ####[facility] [address] [place], [address] PLT Normal 150-450 [facility] Comment on above: Result Comment: Canc elled via OM: Order cancelled - Patient discharged Performed By: #### L 100.0100, L500.2500 ####[facility] [address] [place], [address] RBC Normal 4.2-5.4 [facility] Comment on above: Result Comment: Canc elled via OM: Order cancelled - Patient discharged Performed By: #### L 100.0100, L500.2500 ####[facility] [address] [place], [address] RDW CV Normal 11.6-14.6 [facility] Comment on above: Result Comment: Canc elled via OM: Order cancelled - Patient discharged Performed By: #### L 100.0100, L500.2500 ####[facility] [address] [place], [address] RDW SD Normal 35.1-43.9 [facility] Comment on above: Result Comment: Canc elled via OM: Order cancelled - Patient discharged Performed By: #### L 100.0100, L500.2500 ####[facility] [address] [place], [address] WBC Normal 4.4-11.0 [facility] Comment on above: Result Comment: Canc elled via OM: Order cancelled - Patient discharged Performed By: #### L 100.0100, L500.2500 ####[facility] [address] [place], [address] Basic Metabolic Profile (BMP )on 12-30-2024 BUN Normal 4-19 [facility] Comment on above: Result Comment: Canc elled via OM: Order cancelled - Patient discharged Performed By: #### L 100.0100, L500.2500 ####[facility] [address] [place], [address] BUN/CRE Normal 10-20 [facility] Comment on above: Result Comment: Canc elled via OM: Order cancelled - Patient discharged Performed By: #### L 100.0100, L500.2500 ####[facility] [address] [place], [address] Calcium Normal 7.6-11.0 [facility] Comment on above: Result Comment: Canc elled via OM: Order cancelled - Patient discharged Performed By: #### L 100.0100, L500.2500 ####[facility] [address] [place], [address] CL Normal 98-108 [facility] Comment on above: Result Comment: Canc elled via OM: Order cancelled - Patient discharged Performed By: #### L 100.0100, L500.2500 ####[facility] [address] [place], [address] CO2 Normal 21.0-32.0 [facility] Comment on above: Result Comment: Canc elled via OM: Order cancelled - Patient discharged Performed By: #### L 100.0100, L500.2500 ####[facility] [address] [place], [address] CREAT,SERUM Normal 0.70-1.20 [facility] Comment on above: Result Comment: Canc elled via OM: Order cancelled - Patient discharged Performed By: #### L 100.0100, L500.2500 ####[facility] [address] [place], [address] eGFR Normal >60 [facility] Comment on above: Result Comment: Canc elled via OM: Order cancelled - Patient discharged Performed By: #### L 100.0100, L500.2500 ####[facility] [address] [place], [address] GAP Normal 5-15 [facility] Comment on above: Result Comment: Canc elled via OM: Order cancelled - Patient discharged Performed By: #### L 100.0100, L500.2500 ####[facility] [address] [place], [address] GLU Normal 70-99 [facility] Comment on above: Result Comment: Canc elled via OM: Order cancelled - Patient discharged Performed By: #### L 100.0100, L500.2500 ####[facility] [address] [place], [address] Potassium Normal 3.3-5.1 [facility] Comment on above: Result Comment: Canc elled via OM: Order cancelled - Patient discharged Performed By: #### L 100.0100, L500.2500 ####[facility] [address] [place], [address] Basic Metabolic Profile (BMP) Normal 133-145 [facility] Comment on above: Result Comment: Canc elled via OM: Order cancelled - Patient discharged Performed By: #### L 100.0100, L500.2500 ####[facility] [address] [place], [address] CBC W/Diff, Automatedon 11-1 0-2024 Absolute Neut Normal 2.0-7.7 [facility] Comment on above: Result Comment: Canc elled via OM: Order cancelled - Patient discharged Performed By: #### L 100.0100, L500.2500 ####[facility] [address] [place], [address] HCT Normal 37-47 [facility] Comment on above: Result Comment: Canc elled via OM: Order cancelled - Patient discharged Performed By: #### L 100.0100, L500.2500 ####[facility] [address] [place], [address] HGB Normal 12.0-15.0 [facility] Comment on above: Result Comment: Canc elled via OM: Order cancelled - Patient discharged Performed By: #### L 100.0100, L500.2500 ####[facility] [address] [place], [address] MCH Normal 27.0-32.0 [facility] Comment on above: Result Comment: Canc elled via OM: Order cancelled - Patient discharged Performed By: #### L 100.0100, L500.2500 ####[facility] [address] [place], [address] MCHC Normal 32-36 [facility] Comment on above: Result Comment: Canc elled via OM: Order cancelled - Patient discharged Performed By: #### L 100.0100, L500.2500 ####[facility] [address] [place], [address] MCV Normal 81-99 [facility] Comment on above: Result Comment: Canc elled via OM: Order cancelled - Patient discharged Performed By: #### L 100.0100, L500.2500 ####[facility] [address] [place], [address] NEUT% Normal 47-70 [facility] Comment on above: Result Comment: Canc elled via OM: Order cancelled - Patient discharged Performed By: #### L 100.0100, L500.2500 ####[facility] [address] [place], [address] PLT Normal 150-450 [facility] Comment on above: Result Comment: Canc elled via OM: Order cancelled - Patient discharged Performed By: #### L 100.0100, L500.2500 ####[facility] [address] [place], [address] RBC Normal 4.2-5.4 [facility] Comment on above: Result Comment: Canc elled via OM: Order cancelled - Patient discharged Performed By: #### L 100.0100, L500.2500 ####[facility] [address] [place], [address] RDW CV Normal 11.6-14.6 [facility] Comment on above: Result Comment: Canc elled via OM: Order cancelled - Patient discharged Performed By: #### L 100.0100, L500.2500 ####[facility] [address] [place], [address] RDW SD Normal 35.1-43.9 [facility] Comment on above: Result Comment: Canc elled via OM: Order cancelled - Patient discharged Performed By: #### L 100.0100, L500.2500 ####[facility] [address] [place], [address] WBC Normal 4.4-11.0 [facility] Comment on above: Result Comment: Canc elled via OM: Order cancelled - Patient discharged Performed By: #### L 100.0100, L500.2500 ####[facility] [address] [place], [address] Basic Metabolic Profile (BMP )on 11-09-2025 BUN Normal 4-19 [facility] Comment on above: Result Comment: Canc elled via OM: Order cancelled - Patient discharged Performed By: #### L 500.2500, L100.0100 ####[facility] [address] [place], [address] BUN/CRE Normal 10-20 [facility] Comment on above: Result Comment: Canc elled via OM: Order cancelled - Patient discharged Performed By: #### L 500.2500, L100.0100 ####[facility] [address] [place], [address] Calcium Normal 7.6-11.0 [facility] Comment on above: Result Comment: Canc elled via OM: Order cancelled - Patient discharged Performed By: #### L 500.2500, L100.0100 ####[facility] [address] [place], [address] CL Normal 98-108 [facility] Comment on above: Result Comment: Canc elled via OM: Order cancelled - Patient discharged Performed By: #### L 500.2500, L100.0100 ####[facility] [address] [place], [address] CO2 Normal 21.0-32.0 [facility] Comment on above: Result Comment: Canc elled via OM: Order cancelled - Patient discharged Performed By: #### L 500.2500, L100.0100 ####[facility] [address] [place], [address] CREAT,SERUM Normal 0.70-1.20 [facility] Comment on above: Result Comment: Canc elled via OM: Order cancelled - Patient discharged Performed By: #### L 500.2500, L100.0100 ####[facility] [address] [place], [address] eGFR Normal >60 [facility] Comment on above: Result Comment: Canc elled via OM: Order cancelled - Patient discharged Performed By: #### L 500.2500, L100.0100 ####[facility] [address] [place], [address] GAP Normal 5-15 [facility] Comment on above: Result Comment: Canc elled via OM: Order cancelled - Patient discharged Performed By: #### L 500.2500, L100.0100 ####[facility] [address] [place], [address] GLU Normal 70-99 [facility] Comment on above: Result Comment: Canc elled via OM: Order cancelled - Patient discharged Performed By: #### L 500.2500, L100.0100 ####[facility] [address] [place], [address] Potassium Normal 3.3-5.1 [facility] Comment on above: Result Comment: Canc elled via OM: Order cancelled - Patient discharged Performed By: #### L 500.2500, L100.0100 ####[facility] [address] [place], [address] Basic Metabolic Profile (BMP) Normal 133-145 [facility] Comment on above: Result Comment: Canc elled via OM: Order cancelled - Patient discharged Performed By: #### L 500.2500, L100.0100 ####[facility] [address] [place], [address] CBC W/Diff, Automatedon 11-0 Absolute Neut Normal 2.0-7.7 [facility] Comment on above: Result Comment: Canc elled via OM: Order cancelled - Patient discharged Performed By: #### L 500.2500, L100.0100 ####[facility] [address] [place], [address] HCT Normal 37-47 [facility] Comment on above: Result Comment: Canc elled via OM: Order cancelled - Patient discharged Performed By: #### L 500.2500, L100.0100 ####[facility] [address] [place], [address] HGB Normal 12.0-15.0 [facility] Comment on above: Result Comment: Canc elled via OM: Order cancelled - Patient discharged Performed By: #### L 500.2500, L100.0100 ####[facility] [address] [place], [address] MCH Normal 27.0-32.0 [facility] Comment on above: Result Comment: Canc elled via OM: Order cancelled - Patient discharged Performed By: #### L 500.2500, L100.0100 ####[facility] [address] [place], [address] MCHC Normal 32-36 [facility] Comment on above: Result Comment: Canc elled via OM: Order cancelled - Patient discharged Performed By: #### L 500.2500, L100.0100 ####[facility] [address] [place], [address] MCV Normal 81-99 [facility] Comment on above: Result Comment: Canc elled via OM: Order cancelled - Patient discharged Performed By: #### L 500.2500, L100.0100 ####[facility] [address] [place], [address] NEUT% Normal 47-70 [facility] Comment on above: Result Comment: Canc elled via OM: Order cancelled - Patient discharged Performed By: #### L 500.2500, L100.0100 ####[facility] [address] [place], [address] PLT Normal 150-450 [facility] Comment on above: Result Comment: Canc elled via OM: Order cancelled - Patient discharged Performed By: #### L 500.2500, L100.0100 ####[facility] [address] [place], [address] RBC Normal 4.2-5.4 [facility] Comment on above: Result Comment: Canc elled via OM: Order cancelled - Patient discharged Performed By: #### L 500.2500, L100.0100 ####[facility] [address] [place], [address] RDW CV Normal 11.6-14.6 [facility] Comment on above: Result Comment: Canc elled via OM: Order cancelled - Patient discharged Performed By: #### L 500.2500, L100.0100 ####[facility] [address] [place], [address] RDW SD Normal 35.1-43.9 [facility] Comment on above: Result Comment: Canc elled via OM: Order cancelled - Patient discharged Performed By: #### L 500.2500, L100.0100 ####[facility] [address] [place], [address] WBC Normal 4.4-11.0 [facility] Comment on above: Result Comment: Canc elled via OM: Order cancelled - Patient discharged Performed By: #### L 500.2500, L100.0100 ####[facility] [address] [place], [address] Basic Metabolic Profile (BMP )on 12-28-2024 BUN/CRE 35.9 RATIO High 10-20 [facility] Comment on above: Performed By: #### L 100.0100, L500.2500 ####[facility] [address] [place], [address] Calcium [Mass/Vol] 8.7 mg/dL Normal 7.6-11.0 [facility] Comment on above: Performed By: #### L 100.0100, L500.2500 ####[facility] [address] [place], [address] Chloride [Moles/Vol] 108 mmol/L Normal 98-108 [facility] Comment on above: Performed By: #### L 100.0100, L500.2500 ####[facility] [address] [place], [address] CO2 [Moles/Vol] 19.8 mmol/L Low 21.0-32.0 [facility] Comment on above: Performed By: #### L 100.0100, L500.2500 ####[facility] [address] [place], [address] Creatinine [Mass/Vol] 1.53 mg/dL High 0.70-1.20 [facility] Comment on above: Performed By: #### L 100.0100, L500.2500 ####[facility] [address] [place], [address] ECRCL 25.61 ml/min Low 50-250 [facility] Comment on above: Performed By: #### L 100.0100, L500.2500 ####[facility] [address] [place], [address] GAP 15 Normal 5-15 [facility] Comment on above: Performed By: #### L 100.0100, L500.2500 ####[facility] [address] [place], [address] GFR/1.73 sq M.predicted among non-blacks MDRD (S/P/Bld) [Vol rate/Area] 34 mL/min/{1.73_m2} Low >60 [facility] Comment on above: Result Comment: mL/m in/1.73m2 CKD-EPI Creatinine Equation (2020) Performed By: #### L 100.0100, L500.2500 ####[facility] [address] [place], [address] Glucose [Mass/Vol] 104 mg/dL High 70-99 [facility] Comment on above: Performed By: #### L 100.0100, L500.2500 ####[facility] [address] [place], [address] Potassium [Moles/Vol] 3.6 mmol/L Normal 3.3-5.1 [facility] Comment on above: Performed By: #### L 100.0100, L500.2500 ####[facility] [address] [place], [address] Sodium [Moles/Vol] 142 mmol/L Normal 133-145 [facility] Comment on above: Performed By: #### L 100.0100, L500.2500 ####[facility] [address] [place], [address] Urea nitrogen [Mass/Vol] 55 mg/dL High 4-19 [facility] Comment on above: Performed By: #### L 100.0100, L500.2500 ####[facility] [address] [place], [address] CBC W/Diff, Automatedon 11-0 8-2024 Absolute Lymph 1.35 X10 3/uL Normal 0.83-4.51 [facility] Comment on above: Performed By: #### L 100.0100, L500.2500 ####[facility] [address] [place], [address] Absolute Neut 7.6 X10 3/uL Normal 2.0-7.7 [facility] Comment on above: Performed By: #### L 100.0100, L500.2500 ####[facility] [address] [place], [address] Basophils/100 WBC (Bld) 0.3 % Normal 0-1 [facility] Comment on above: Performed By: #### L 100.0100, L500.2500 ####[facility] [address] [place], [address] Eosinophils/100 WBC (Bld) 0.7 % Normal 0-5 [facility] Comment on above: Performed By: #### L 100.0100, L500.2500 ####[facility] [address] [place], [address] Erythrocyte distribution width (RBC) [Ratio] 16.2 % High 11.6-14.6 [facility] Comment on above: Performed By: #### L 100.0100, L500.2500 ####[facility] [address] [place], [address] Hematocrit (Bld) [Volume fraction] 44.8 % Normal 37-47 [facility] Comment on above: Performed By: #### L 100.0100, L500.2500 ####[facility] [address] [place], [address] Hemoglobin (Bld) [Mass/Vol] 14.6 g/dL Normal 12.0-15.0 [facility] Comment on above: Performed By: #### L 100.0100, L500.2500 ####[facility] [address] [place], [address] IG% 0.500 Normal 0.0-0.9 [facility] Comment on above: Result Comment: IG% - Immature Granulocytes (promyelocytes, myelocytes andmetamyelocytes) > 1% indicates that a LEFT SHIFT is Present. Performed By: #### L 100.0100, L500.2500 ####[facility] [address] [place], [address] Lymphocytes/100 WBC (Bld) 13.4 % Low 19-41 [facility] Comment on above: Performed By: #### L 100.0100, L500.2500 ####[facility] [address] [place], [address] MCH (RBC) [Entitic mass] 28.2 pg Normal 27.0-32.0 [facility] Comment on above: Performed By: #### L 100.0100, L500.2500 ####[facility] [address] [place], [address] MCHC (RBC) [Mass/Vol] 32.6 g/dL Normal 32-36 [facility] Comment on above: Performed By: #### L 100.0100, L500.2500 ####[facility] [address] [place], [address] MCV (RBC) [Entitic vol] 86.7 fL Normal 81-99 [facility] Comment on above: Performed By: #### L 100.0100, L500.2500 ####[facility] [address] [place], [address] Monocytes/100 WBC (Bld) 9.7 % Normal 0-10 [facility] Comment on above: Performed By: #### L 100.0100, L500.2500 ####[facility] [address] [place], [address] Neutrophils/100 WBC (Bld) 75.4 % High 47-70 [facility] Comment on above: Performed By: #### L 100.0100, L500.2500 ####[facility] [address] [place], [address] Nucleated RBC (Bld) [#/Vol] 0 10*3/uL Normal 0-5 [facility] Comment on above: Performed By: #### L 100.0100, L500.2500 ####[facility] [address] [place], [address] Platelet mean volume (Bld) [Entitic vol] 12.1 fL High 6.2-12.0 [facility] Comment on above: Performed By: #### L 100.0100, L500.2500 ####[facility] [address] [place], [address] Platelets (Bld) [#/Vol] 129 10*3/uL Low 150-450 [facility] Comment on above: Performed By: #### L 100.0100, L500.2500 ####[facility] [address] [place], [address] RBC (Bld) [#/Vol] 5.17 10*6/uL Normal 4.2-5.4 [facility] Comment on above: Performed By: #### L 100.0100, L500.2500 ####[facility] [address] [place], [address] RDW SD 50.1 fl High 35.1-43.9 [facility] Comment on above: Performed By: #### L 100.0100, L500.2500 ####[facility] [address] [place], [address] WBC (Bld) [#/Vol] 10.1 10*3/uL Normal 4.4-11.0 [facility] Comment on above: Performed By: #### L 100.0100, L500.2500 ####[facility] [address] [place], [address] Discharge Instructionon 11-0 Discharge Instruction Normal [facility] Magnesiumon 12-28-2024 Magnesium [Mass/Vol] 2.1 mg/dL Normal 1.5-2.2 [facility] Comment on above: Performed By: #### L 501.5200, L501.2300 ####[facility] [address] [place], [address] Phosphoruson 12-28-2024 Phosphate [Mass/Vol] 3.2 mg/dL Normal 2.7-4.5 [facility] Comment on above: Performed By: #### L 501.5200, L501.2300 ####[facility] [address] [place], [address] Basic Metabolic Profile (BMP )on 12-27-2024 BUN/CRE 38.6 RATIO High 10-20 [facility] Comment on above: Performed By: #### L 100.0100, L500.2500 ####[facility] [address] [place], [address] Calcium [Mass/Vol] 8.8 mg/dL Normal 7.6-11.0 [facility] Comment on above: Performed By: #### L 100.0100, L500.2500 ####[facility] [address] [place], [address] Chloride [Moles/Vol] 112 mmol/L High 98-108 [facility] Comment on above: Performed By: #### L 100.0100, L500.2500 ####[facility] [address] [place], [address] CO2 [Moles/Vol] 17.4 mmol/L Low 21.0-32.0 [facility] Comment on above: Performed By: #### L 100.0100, L500.2500 ####[facility] [address] [place], [address] Creatinine [Mass/Vol] 1.72 mg/dL High 0.70-1.20 [facility] Comment on above: Performed By: #### L 100.0100, L500.2500 ####[facility] [address] [place], [address] ECRCL 23.25 ml/min Low 50-250 [facility] Comment on above: Performed By: #### L 100.0100, L500.2500 ####[facility] [address] [place], [address] GAP 14 Normal 5-15 [facility] Comment on above: Performed By: #### L 100.0100, L500.2500 ####[facility] [address] [place], [address] GFR/1.73 sq M.predicted among non-blacks MDRD (S/P/Bld) [Vol rate/Area] 30 mL/min/{1.73_m2} Low >60 [facility] Comment on above: Result Comment: mL/m in/1.73m2 CKD-EPI Creatinine Equation (2020) Performed By: #### L 100.0100, L500.2500 ####[facility] [address] [place], [address] Glucose [Mass/Vol] 171 mg/dL High 70-99 [facility] Comment on above: Performed By: #### L 100.0100, L500.2500 ####[facility] [address] [place], [address] Potassium [Moles/Vol] 4.1 mmol/L Normal 3.3-5.1 [facility] Comment on above: Performed By: #### L 100.0100, L500.2500 ####[facility] [address] [place], [address] Sodium [Moles/Vol] 144 mmol/L Normal 133-145 [facility] Comment on above: Performed By: #### L 100.0100, L500.2500 ####[facility] [address] [place], [address] Urea nitrogen [Mass/Vol] 66 mg/dL High 4-19 [facility] Comment on above: Performed By: #### L 100.0100, L500.2500 ####[facility] [address] [place], [address] CBC W/Diff, Automatedon 11-0 Absolute Lymph 2.44 X10 3/uL Normal 0.83-4.51 [facility] Comment on above: Performed By: #### L 100.0100, L500.2500 ####[facility] [address] [place], [address] Absolute Neut 5.6 X10 3/uL Normal 2.0-7.7 [facility] Comment on above: Performed By: #### L 100.0100, L500.2500 ####[facility] [address] [place], [address] Basophils/100 WBC (Bld) 0.7 % Normal 0-1 [facility] Comment on above: Performed By: #### L 100.0100, L500.2500 ####[facility] [address] [place], [address] Eosinophils/100 WBC (Bld) 1.1 % Normal 0-5 [facility] Comment on above: Performed By: #### L 100.0100, L500.2500 ####[facility] [address] [place], [address] Erythrocyte distribution width (RBC) [Ratio] 16.1 % High 11.6-14.6 [facility] Comment on above: Performed By: #### L 100.0100, L500.2500 ####[facility] [address] [place], [address] Hematocrit (Bld) [Volume fraction] 45.1 % Normal 37-47 [facility] Comment on above: Performed By: #### L 100.0100, L500.2500 ####[facility] [address] [place], [address] Hemoglobin (Bld) [Mass/Vol] 14.4 g/dL Normal 12.0-15.0 [facility] Comment on above: Performed By: #### L 100.0100, L500.2500 ####[facility] [address] [place], [address] IG% 0.700 Normal 0.0-0.9 [facility] Comment on above: Result Comment: IG% - Immature Granulocytes (promyelocytes, myelocytes andmetamyelocytes) > 1% indicates that a LEFT SHIFT is Present. Performed By: #### L 100.0100, L500.2500 ####[facility] [address] [place], [address] Lymphocytes/100 WBC (Bld) 25.9 % Normal 19-41 [facility] Comment on above: Performed By: #### L 100.0100, L500.2500 ####[facility] [address] [place], [address] MCH (RBC) [Entitic mass] 28.4 pg Normal 27.0-32.0 [facility] Comment on above: Performed By: #### L 100.0100, L500.2500 ####[facility] [address] [place], [address] MCHC (RBC) [Mass/Vol] 31.9 g/dL Low 32-36 [facility] Comment on above: Performed By: #### L 100.0100, L500.2500 ####[facility] [address] [place], [address] MCV (RBC) [Entitic vol] 89.0 fL Normal 81-99 [facility] Comment on above: Performed By: #### L 100.0100, L500.2500 ####[facility] [address] [place], [address] Monocytes/100 WBC (Bld) 12.3 % High 0-10 [facility] Comment on above: Performed By: #### L 100.0100, L500.2500 ####[facility] [address] [place], [address] Neutrophils/100 WBC (Bld) 59.3 % Normal 47-70 [facility] Comment on above: Performed By: #### L 100.0100, L500.2500 ####[facility] [address] [place], [address] Nucleated RBC (Bld) [#/Vol] 0.2 10*3/uL Normal 0-5 [facility] Comment on above: Performed By: #### L 100.0100, L500.2500 ####[facility] [address] [place], [address] Platelet mean volume (Bld) [Entitic vol] 13.0 fL High 6.2-12.0 [facility] Comment on above: Performed By: #### L 100.0100, L500.2500 ####[facility] [address] [place], [address] Platelets (Bld) [#/Vol] 123 10*3/uL Low 150-450 [facility] Comment on above: Performed By: #### L 100.0100, L500.2500 ####[facility] [address] [place], [address] RBC (Bld) [#/Vol] 5.07 10*6/uL Normal 4.2-5.4 [facility] Comment on above: Performed By: #### L 100.0100, L500.2500 ####[facility] [address] [place], [address] RDW SD 51.8 fl High 35.1-43.9 [facility] Comment on above: Performed By: #### L 100.0100, L500.2500 ####[facility] [address] [place], [address] WBC (Bld) [#/Vol] 9.4 10*3/uL Normal 4.4-11.0 [facility] Comment on above: Performed By: #### L 100.0100, L500.2500 ####[facility] [address] [place], [address] Absolute Lymph 1.77 X10 3/uL Normal 0.83-4.51 [facility] Comment on above: Performed By: #### L 500.4050, L100.0100 ####[facility] [address] [place], [address] Absolute Neut 5.9 X10 3/uL Normal 2.0-7.7 [facility] Comment on above: Performed By: #### L 500.4050, L100.0100 ####[facility] [address] [place], [address] Basophils/100 WBC (Bld) 0.8 % Normal 0-1 [facility] Comment on above: Performed By: #### L 500.4050, L100.0100 ####[facility] [address] [place], [address] Eosinophils/100 WBC (Bld) 0.7 % Normal 0-5 [facility] Comment on above: Performed By: #### L 500.4050, L100.0100 ####[facility] [address] [place], [address] Erythrocyte distribution width (RBC) [Ratio] 16.0 % High 11.6-14.6 [facility] Comment on above: Performed By: #### L 500.4050, L100.0100 ####[facility] [address] [place], [address] Hematocrit (Bld) [Volume fraction] 45.7 % Normal 37-47 [facility] Comment on above: Performed By: #### L 500.4050, L100.0100 ####[facility] [address] [place], [address] Hemoglobin (Bld) [Mass/Vol] 14.4 g/dL Normal 12.0-15.0 [facility] Comment on above: Performed By: #### L 500.4050, L100.0100 ####[facility] [address] [place], [address] IG% 0.600 Normal 0.0-0.9 [facility] Comment on above: Result Comment: IG% - Immature Granulocytes (promyelocytes, myelocytes andmetamyelocytes) > 1% indicates that a LEFT SHIFT is Present. Performed By: #### L 500.4050, L100.0100 ####[facility] [address] [place], [address] Lymphocytes/100 WBC (Bld) 19.8 % Normal 19-41 [facility] Comment on above: Performed By: #### L 500.4050, L100.0100 ####[facility] [address] [place], [address] MCH (RBC) [Entitic mass] 28.2 pg Normal 27.0-32.0 [facility] Comment on above: Performed By: #### L 500.4050, L100.0100 ####[facility] [address] [place], [address] MCHC (RBC) [Mass/Vol] 31.5 g/dL Low 32-36 [facility] Comment on above: Performed By: #### L 500.4050, L100.0100 ####[facility] [address] [place], [address] MCV (RBC) [Entitic vol] 89.6 fL Normal 81-99 [facility] Comment on above: Performed By: #### L 500.4050, L100.0100 ####[facility] [address] [place], [address] Monocytes/100 WBC (Bld) 12.1 % High 0-10 [facility] Comment on above: Performed By: #### L 500.4050, L100.0100 ####[facility] [address] [place], [address] Neutrophils/100 WBC (Bld) 66.0 % Normal 47-70 [facility] Comment on above: Performed By: #### L 500.4050, L100.0100 ####[facility] [address] [place], [address] Nucleated RBC (Bld) [#/Vol] 0 10*3/uL Normal 0-5 [facility] Comment on above: Performed By: #### L 500.4050, L100.0100 ####[facility] [address] [place], [address] Platelet mean volume (Bld) [Entitic vol] 12.3 fL High 6.2-12.0 [facility] Comment on above: Performed By: #### L 500.4050, L100.0100 ####[facility] [address] [place], [address] Platelets (Bld) [#/Vol] 141 10*3/uL Low 150-450 [facility] Comment on above: Performed By: #### L 500.4050, L100.0100 ####[facility] [address] [place], [address] RBC (Bld) [#/Vol] 5.10 10*6/uL Normal 4.2-5.4 [facility] Comment on above: Performed By: #### L 500.4050, L100.0100 ####[facility] [address] [place], [address] RDW SD 51.9 fl High 35.1-43.9 [facility] Comment on above: Performed By: #### L 500.4050, L100.0100 ####[facility] [address] [place], [address] WBC (Bld) [#/Vol] 9.0 10*3/uL Normal 4.4-11.0 [facility] Comment on above: Performed By: #### L 500.4050, L100.0100 ####[facility] [address] [place], [address] Chest PA and Lateralon 12-27 Chest PA and Lateral Normal [facility] Comprehensive Metabolic Prof ilon 12-27-2024 Albumin [Mass/Vol] 3.7 g/dL Normal 3.4-4.8 [facility] Comment on above: Performed By: #### L 500.4050, L100.0100 ####[facility] [address] [place], [address] Albumin/Globulin [Mass ratio] 2.1 {ratio} Normal 0.9-2.4 [facility] Comment on above: Performed By: #### L 500.4050, L100.0100 ####[facility] [address] [place], [address] ALK PHOS 92 U/L Normal 35-104 [facility] Comment on above: Performed By: #### L 500.4050, L100.0100 ####[facility] [address] [place], [address] ALT [Catalytic activity/Vol] 34 U/L Normal <=34 [facility] Comment on above: Performed By: #### L 500.4050, L100.0100 ####[facility] [address] [place], [address] AST [Catalytic activity/Vol] 25 U/L Normal <=31 [facility] Comment on above: Result Comment: Hemo lysis present, Results??could be affected.?? Performed By: #### L 500.4050, L100.0100 ####[facility] [address] [place], [address] Bilirubin [Mass/Vol] 1.37 mg/dL High 0.00-1.30 [facility] Comment on above: Performed By: #### L 500.4050, L100.0100 ####[facility] [address] [place], [address] BUN/CRE 34.7 RATIO High 10-20 [facility] Comment on above: Performed By: #### L 500.4050, L100.0100 ####[facility] [address] [place], [address] Calcium [Mass/Vol] 8.7 mg/dL Normal 7.6-11.0 [facility] Comment on above: Performed By: #### L 500.4050, L100.0100 ####[facility] [address] [place], [address] Chloride [Moles/Vol] 111 mmol/L High 98-108 [facility] Comment on above: Performed By: #### L 500.4050, L100.0100 ####[facility] [address] [place], [address] CO2 [Moles/Vol] 19.2 mmol/L Low 21.0-32.0 [facility] Comment on above: Performed By: #### L 500.4050, L100.0100 ####[facility] [address] [place], [address] Creatinine [Mass/Vol] 1.73 mg/dL High 0.70-1.20 [facility] Comment on above: Performed By: #### L 500.4050, L100.0100 ####[facility] [address] [place], [address] GAP 13 Normal 5-15 [facility] Comment on above: Performed By: #### L 500.4050, L100.0100 ####[facility] [address] [place], [address] GFR/1.73 sq M.predicted among non-blacks MDRD (S/P/Bld) [Vol rate/Area] 29 mL/min/{1.73_m2} Low >60 [facility] Comment on above: Result Comment: mL/m in/1.73m2 CKD-EPI Creatinine Equation (2020) Performed By: #### L 500.4050, L100.0100 ####[facility] [address] [place], [address] Globulin (S) [Mass/Vol] 1.8 g/dL Low 2.2-4.2 [facility] Comment on above: Performed By: #### L 500.4050, L100.0100 ####[facility] [address] [place], [address] Glucose [Mass/Vol] 140 mg/dL High 70-99 [facility] Comment on above: Performed By: #### L 500.4050, L100.0100 ####[facility] [address] [place], [address] Potassium [Moles/Vol] 4.4 mmol/L Normal 3.3-5.1 [facility] Comment on above: Result Comment: Hemo lysis present, Results??could be affected.?? Performed By: #### L 500.4050, L100.0100 ####[facility] [address] [place], [address] Sodium [Moles/Vol] 143 mmol/L Normal 133-145 [facility] Comment on above: Performed By: #### L 500.4050, L100.0100 ####[facility] [address] [place], [address] T PROT 5.5 g/dL Low 5.9-8.4 [facility] Comment on above: Performed By: #### L 500.4050, L100.0100 ####[facility] [address] [place], [address] Urea nitrogen [Mass/Vol] 60 mg/dL High 4-19 [facility] Comment on above: Performed By: #### L 500.4050, L100.0100 ####[facility] [address] [place], [address] D-Dimer Quantitative (DVT/PE )on 12-27-2024 D-DIMER QUANT 0.53 FEU/ug/m Invalid Interpretation Code 0.27-0.49 [facility] Comment on above: Result Comment: D-Di mitali ELEVATED (>0.49): Additional studies and clinicalassessments are indicated to conclude diagnosis of:Deep Vein Thrombosis (DVT) or Pulmonary Embolism (PE)CRITICAL VALUE CALLED TO JOSE OLSEN12/27/24 0321 Damari Seth.RESULTS READ BACK BY SAME. Performed By: #### L 300.8000 ####[facility] [address] [place], [place], [id number] Echo, Limited Studyon 2024 Echo, Limited Study Normal [facility] Emergency Department Summary on 12-27-2024 Emergency Department Summary Normal [facility] H AND P Exam - Hospitaliston 12-27-2024 H&P Exam - Hospitalist Normal [facility] L501.4021on 12-27-2024 Trop T High Sen 97 ng/L Invalid Interpretation Code <=14 [facility] Comment on above: Result Comment: Crit ical Result(s) Called at: by:??Results read back bysame.Critical Result(s) Called at: 12-27-24 03:38 TO Roosevelt KELLY: MALKA MCGHEE??Results read back by same. Performed By: #### L 503.7505, L501.4021 ####[facility] [address] [place], [address] M100.678on 12-27-2024 M100.678 Pending SARS-CoV-2 (COVID 19) Negative INFLUENZA A Negative INFLUENZA B Negative RSV PCR Negative Normal [facility] Comment on above: Performed By: #### M 100.678 ####[facility] [address] [place], [place], [address] Pro- Brain NATRIURETIC PEPTI Corie 12-27-2024 proBNP > 87657 High <=1800 [facility] Comment on above: Result Comment: Hear t Failure Unlikely: < 300 pg/mLHeart Failure Likely< 50 Years: > 450 pg/mL50-75 Years: > 900 pg/mL>75 Years: > 1800 pg/mL Performed By: #### L 503.7505, L501.4021 ####[facility] [address] [place], [place], [address] Troponin T HS 2 HRon 025 Trop T High Sen 102 ng/L Invalid Interpretation Code <=14 [facility] Comment on above: Result Comment: Crit ical Result(s) Called at: 12-27-24 05:24 TO [facility] by: MALKA MCGHEE ??Results read back by same. Performed By: #### L 499.0042 ####[facility] [address] [facility] [place], [place], [address] Troponin T HS 4 HRon 025 Trop T High Sen 95 ng/L Invalid Interpretation Code <=14 [facility] Comment on above: Result Comment: Crit ical Result(s) Called to: Kelly HAWKINS ([facility]) by:Yogi??Results read back by same. Performed By: #### L 499.0043 ####[facility] [address] [facility] [place], [place], [address] [facility] LINDA PERALTA ([id number]) 1945 F Date Time Provider Department 12/23/24 AMOS FLOYD During your visit today, we recorded the following information about you: DESIRAE ARZOLA 12/23/2024 10:10 AM Signed Patient scheduled for nurse visit 01/13/25 to receive Prolia. Please place order at this time. Desirae Arzola LPN Allergies As of Date: 12/23/2024 Noted Allergy Reaction CIPRO (CIPROFLOXACIN) 07/22/2009 Comments: rash with 500mg dose PENICILLINS 06/17/2002 Comments: rash Date Reviewed: 10/29/2024 Reviewed by: Isha Wright LPN - Fully Assessed Reason for Visit: Orders [681] Primary Visit Diagnosis:Age-related osteoporosis with current pathological fracture with routine healing [M80.00XD] Order(s):[START ON 01/13/2025] denosumab 60 mg injection (PROLIA)Disp: Rfl: Prescriptions as of 12/26/2024 - roflumilast (ZORYVE) 0.3 % cream Apply to affected area once daily. - simvastatin (ZOCOR) 20 mg tablet Take 1 tablet by mouth daily at bedtime. - estradiol (ESTRACE) 0.01 % (0.1 mg/gram) [...] g by mouth daily at bedtime. - nitroglycerin sublingual (NITROQUICK) 0.4 mg SL tablet Dissolve 1 tablet under the tongue every 5 minutes as needed. - acetaminophen (TYLENOL) 325 mg tablet Take 650 mg by mouth every 6 hours as needed. Facility-Administered Medications as of 12/26/2024 - denosumab 60 mg injection (PROLIA) Problem List As Of Date 12/23/2024 Noted Resolved Disorder of autonomic nervous system [...] than or equal to 1 cm in*02/22/2024 S/p TAVR (transcatheter aortic valve replacemen*10/29/2024 Prescriptions ordered this encounter Disp Refills Start End DENOSUMAB 60 MG/ML SUBCUTANEOUS SYRI* 01/13/2025 01/07/2026 Route: SQ Encounter Status:Closed by DESIRAE ARZOLA on 12/26/24 [facility] Anion gap in Serum or Plasma Ordered By: Jennifer Tarango on 12-03-2024 Anion gap [Moles/Vol] 10 mmol/L 07-04 [facility] BUN/creatinine ratioOrdered By: Jennifer Tarango on 12-03-2024 Urea nitrogen/Creatinine [Mass ratio] 22.8 mg/mg High 12-09 [facility] Basic Metabolic Profile (BMP )on 12-03-2024 BUN/CRE 22.6 RATIO High 12-09 [facility] Comment on above: Performed By: #### L 500.2500 ####[facility] [address] [place], [address] CO2 [Moles/Vol] 22.9 mmol/L Normal 21.0-32.0 [facility] Comment on above: Performed By: #### L 500.2500 ####[facility] [address] [place], [address] Creatinine [Mass/Vol] 1.72 mg/dL High 0.70-1.20 [facility] Comment on above: Performed By: #### L 500.2500 ####[facility] [address] [place], [address] GAP 11 Normal -15 [facility] Comment on above: Performed By: #### L 500.2500 ####[facility] [address] [place], [address] Carbon dioxide, total [Moles /volume] in Central venous bloodOrdered By: Jennifer Tarango on 12-03-2024 CO2 [Moles/Vol] 23.5 mmol/L 21.0-32.0 [facility] Chloride assayOrdered By: Dallas Tarango on 12-03-2024 Chloride [Moles/Vol] 108 mmol/L 98-108 [facility] Glomerular filtration rate ( GFR) estimation/1.73 sq m using serum, plasma, or whole bOrdered By: Jennifer Tarango on 12-03-2024 GFR/1.73 sq M.predicted among non-blacks MDRD (S/P/Bld) [Vol rate/Area] 30 mL/min/{1.73_m2} Low >60 [facility] Comment on above: mL/min/1.73m2 CKD-EP I Creatinine Equation (2020) Potassium measurement (mass/ volume)Ordered By: Jennifer Tarango on 12-03-2024 Potassium (Unsp spec) [Mass/Vol] 4.6 mmol/L 3.3-5.1 [facility] Renal Profileon 12-03-2024 Albumin [Mass/Vol] 3.9 g/dL Normal 3.4-4.8 [facility] Comment on above: Performed By: #### L 500.3600 ####[facility] [address] [place], [address] BUN/CRE 22.8 RATIO High 10-20 [facility] Comment on above: Performed By: #### L 500.3600 ####[facility] [address] [place], [address] Calcium [Mass/Vol] 9.4 mg/dL Normal 7.6-11.0 [facility] Comment on above: Performed By: #### L 500.3600 ####[facility] [address] [place], [address] Performed By: #### L 500.2500 ####[facility] [address] [place], [address] Chloride [Moles/Vol] 108 mmol/L Normal 98-108 [facility] Comment on above: Performed By: #### L 500.3600 ####[facility] [address] [place], [address] Performed By: #### L 500.2500 ####[facility] [address] [place], [address] CO2 [Moles/Vol] 23.5 mmol/L Normal 21.0-32.0 [facility] Comment on above: Performed By: #### L 500.3600 ####[facility] [address] [place], [address] Creatinine [Mass/Vol] 1.69 mg/dL High 0.70-1.20 [facility] Comment on above: Performed By: #### L 500.3600 ####[facility] [address] [place], [address] GAP 10 Normal 5-15 [facility] Comment on above: Performed By: #### L 500.3600 ####[facility] [address] [place], [address] GFR/1.73 sq M.predicted among non-blacks MDRD (S/P/Bld) [Vol rate/Area] 30 mL/min/{1.73_m2} Low >60 [facility] Comment on above: Result Comment: mL/m in/1.73m2 CKD-EPI Creatinine Equation (2020) Performed By: #### L 500.3600 ####[facility] [address] [place], [address] Performed By: #### L 500.2500 ####[facility] [address] [place], [address] Glucose [Mass/Vol] 83 mg/dL Normal 70-99 [facility] Comment on above: Performed By: #### L 500.3600 ####[facility] [address] [place], [address] Performed By: #### L 500.2500 ####[facility] [address] [place], [address] Phosphate [Mass/Vol] 2.6 mg/dL Low 2.7-4.5 [facility] Comment on above: Performed By: #### L 500.3600 ####[facility] [address] [place], [address] Potassium [Moles/Vol] 4.6 mmol/L Normal 3.3-5.1 [facility] Comment on above: Performed By: #### L 500.3600 ####[facility] [address] [place], [address] Performed By: #### L 500.2500 ####[facility] [address] [place], [address] Sodium [Moles/Vol] 142 mmol/L Normal 133-145 [facility] Comment on above: Performed By: #### L 500.3600 ####[facility] [address] [place], [address] Performed By: #### L 500.2500 ####[facility] [address] [place], [address] Urea nitrogen [Mass/Vol] 39 mg/dL High 06-08 [facility] Comment on above: Performed By: #### L 500.3600 ####[facility] [address] [place], [address] Performed By: #### L 500.2500 ####[facility] [address] [place], [address] Serum creatinine measurement (mass/volume)Ordered By: Jennifer Tarango on 12-03-2024 Creatinine [Mass/Vol] 1.69 mg/dL High 0.70-1.20 [facility] Serum glucose measurement (m ass/volume)Ordered By: Jennifer Tarango on 12-03-2024 Glucose [Mass/Vol] 83 mg/dL 70-99 [facility] Serum or plasma albumin scott urement (mass/volume)Ordered By: Jennifer Tarango on 12-03-2024 Albumin [Mass/Vol] 3.9 g/dL 3.4-4.8 [facility] Serum or plasma calcium scott urement (mass/volume)Ordered By: Jennifer Tarango on 12-03-2024 Calcium [Mass/Vol] 9.4 mg/dL 7.6-11.0 [facility] Serum or plasma urea nitroge n measurement (mass/volume)Ordered By: Jennifer Tarango on 12-03-2024 Urea nitrogen [Mass/Vol] 39 mg/dL High 06-08 [facility] Sodium levelOrdered By: Dustin Tarango on 12-03-2024 Sodium [Moles/Vol] 142 mmol/L 133-145 [facility] Office Visiton 11-28-2024 Follow-up visit [id number] Ingris Peralta 1945 F Date Provider Department Center 11/28/2024 [id number]-ZHQDURBASIM [facility] [address] Family History Problem Relation Age of Onset Heart attack Mother Stroke Father Family Status - Relation Status Age at Mother Father Level of Service:02429 RI OFFICE/OUTPATIENT ESTABLISHED MOD MDM 30 MIN Reason for Visit and Comments: Cardiac Valve Problem [1334] Normal [facility] [employer] [facility] Progress Noteon 11-28-2024 Progress Note [facility] [employer] CARDIOL [facility] - [place] [address] [place] [address] Dept: [phone] Dept Visit type: Established : 1945 Reason for Visit: Cardiac Valve Problem Assessment and Plan 1. Chronic systolic heart failure (HCC) Class III. Stage C Continue metoprolol. Resume Lisinopril 5 mg daily. I will have her see the heart failure team given her severe LV dysfunction, [place]'s disease, and CKD. 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 Na/K have remained [...] mm Hg). She had an admission at [facility] in July for UTI after heart cath [...] specialty: Independent interpretation of tests: Basim Joel, MANAGER TRACK - DESIGN ENGINEER [employer]ODUCTS [1] Allergies Allergen Reactions Amlodipine Swelling Ciprofloxacin [...] Disp: , (more content not included)... Normal [facility]i [facility] US Heart TransthoracicOrdere d By: Jefferson Adorno on 11-28-2024 Aortic Arch 2.5 [facility] Phone: Aortic Sinus Valsalva 3.1 cm [facility] [employer] Phone: Aortic Sinus Valsalva Index 1.81 cm/m2 [place] Phone: Aortic valve Mean systole pressure gradient by US.doppler derived full Bernoulli 10 mmHg [facility] [employer] Phone: Aortic valve Orifice area by US 2.5 cm2 [facility] Phone: Aortic valve Peak systolic flow by US.doppler 1.5 m/s [facility] [employer] Phone: Ascending Aorta 3.4 cm [facility] [employer] Phone: Ascending Aorta Index 1.99 cm/m2 [place] [employer] Phone: AV Area by Peak Velocity 1.1 cm2 [facility] [employer] Phone: AV Area by VTI 0.6 cm2 [facility] [employer] Phone: AV AT 91.34 ms [facility] [employer] Phone: AV Peak Gradient 18 mmHg [facility] [employer] Phone: AV Peak Velocity 2.1 m/s [facility] [employer] Phone: AV Velocity Ratio 0.43 [facility] [employer] Phone: AV VTI 51.3 cm [facility] [employer] Phone: OMID/BSA Peak Velocity 0.6 cm2/m2 [place] [employer] Phone: OMID/BSA VTI 0.4 cm2/m2 [facility] [employer] Phone: E/E' Lateral 10.14 [facility] [employer] Phone: E/E' Ratio (Averaged) 7.8 [place] [employer] Phone: E/E' Septal 5.46 [facility] [employer] Phone: Est. RA Pressure 8 mmHg [facility] [employer] Phone: Fractional Shortening 2D 6 % 28 - 44 % [facility] [employer] Phone: Global Longitudinal Strain -6.8 % [facility] [employer] Phone: Interpretation and review of laboratory results Abnormal [facility] [employer] Phone: IVC Diameter 1.8 cm [facility] [employer] Phone: IVSd 1.3 cm Abnormal 0.6 - 0.9 cm [facility] [employer] Phone: LA Diameter 4.7 cm [facility] [employer] Phone: LA Size Index 2.75 cm/m2 [facility] Phone: LA Volume 2C 79 mL Abnormal 22 - 52 mL [facility] Work Phone: LA Volume 4C 69 mL Abnormal 22 - 52 mL [facility] Work Phone: LA Volume A/L 79 mL [facility] Phone: LA Volume BP 75 mL Abnormal 22 - 52 mL [facility] Phone: LA Volume Index 2C 46 mL/m2 Abnormal 16 - 34 mL/m2 [facility] Phone: LA Volume Index 4C 40 mL/m2 Abnormal 16 - 34 mL/m2 [facility] Phone: LA Volume Index A/L 46 mL/m2 16 - 34 mL/m2 [facility] Phone: LA Volume Index BP 44 ml/m2 Abnormal 16 - 34 ml/m2 [facility] [employer] Phone: Left ventricular Ejection fraction by US.2D+Calculated by biplane method of disks 20 % Abnormal 55 - 100 % [facility] Work Phone: LV E' Lateral Velocity 7 cm/s [facility] Work Phone: LV E' Septal Velocity 13 cm/s [facility] Work Phone: LV EDV A2C 131 mL [facility] Phone: LV EDV A4C 130 mL [facility] Work Phone: LV EDV BP 133 mL Abnormal 56 - 104 mL [facility] Phone: LV EDV Index A2C 77 mL/m2 [facility] Phone: LV EDV Index A4C 76 mL/m2 [facility] Work Phone: LV EDV Index BP 78 mL/m2 [facility] Work Phone: LV Ejection Fraction A2C 24 % [facility] Work Phone: LV Ejection Fraction A4C 13 % [facility] Work Phone: LV ESV A2C 100 mL [facility] Work Phone: LV ESV A4C 113 mL [facility] Work Phone: LV ESV BP 107 mL Abnormal 19 - 49 mL [facility] Work Phone: LV ESV Index A2C 58 mL/m2 [facility] Work Phone: LV ESV Index A4C 66 mL/m2 [facility] Work Phone: LV ESV Index BP 63 mL/m2 [facility] [employer] Phone: LV Mass 2D 295.6 g Abnormal 67 - 162 g [facility] Phone: LV Mass 2D Index 172.9 g/m2 Abnormal 43 - 95 g/m2 [facility] Phone: LV RWT Ratio 0.48 [facility] [employer] Phone: LVIDd 5.4 cm Abnormal 3.9 - 5.3 cm [facility] [employer] Phone: LVIDd Index 3.16 cm/m2 [facility] [employer] Phone: LVIDs 5.1 cm [facility] [employer] Phone: LVIDs Index 2.98 cm/m2 [facility] [employer] Phone: LVOT Cardiac Output 2.4 liter/minute [facility] [employer] Phone: LVOT Diameter 1.8 cm [facility] Work Phone: LVOT Mean Gradient 1 mmHg [facility] [employer] Phone: LVOT Peak Gradient 3 mmHg [facility] [employer] Phone: LVOT Peak Velocity 0.9 m/s [facility] [employer] Phone: LVOT Stroke Volume Index 18.9 mL/m2 [facility] [employer] Phone: LVOT SV 32.3 ml [facility] [employer] Phone: LVOT VTI 12.7 cm [facility] [employer] Phone: LVOT:AV VTI Index 0.25 [facility] Work Phone: LVPWd 1.3 cm Abnormal 0.6 - 0.9 cm [facility] Work Phone: MR VTI 194.9 cm [facility] Work Phone: MV A Velocity 0.83 m/s [facility] Work Phone: MV E Velocity 0.71 m/s [facility] Work Phone: MV E Wave Deceleration Time 162.7 ms [facility] Work Phone: MV E/A 0.86 [facility] Work Phone: MV Nyquist Velocity 36 cm/s [facility] Work Phone: MV Regurg Velocity PISA 5.6 m/s [facility] Work Phone: RA Area 4C 85.2 mL [facility] Work Phone: RA Area 4C 79.9 mL [facility] [employer] Work Phone: RV Basal Dimension 4.1 cm [facility] Work Phone: RV Free Wall Peak S' 17 cm/s [facility] Work Phone: RV Longitudinal Dimension 8.2 cm [facility] Work Phone: RV Mid Dimension 2.3 cm [facility] Work Phone: RVSP 49 mmHg [facility] Work Phone: Sinotubular Junction 2.1 cm [facility] Work Phone: TAPSE 3.4 cm 1.7 cm [facility] Work Phone: TR Max Velocity 3.21 m/s [facility] Work Phone: TR Peak Gradient 41 mmHg [facility] Work Phone: TR Peak Velocity PISA 2.7 m/s [facility] Work Phone: TR VTI 86.9 cm [facility] Work Phone: [facility] Work Phone: US Heart Transthoracicon Left Ventricle: Left ventricle is [...] CPACS Cardiology Visit Reporton Cardiology Visit Report Normal [facility] 36on 11-04-2024 36 Renal function juventino nance. Advised to take Lasix 20 mg daily for 3 days and then re- evaluate by phone. Weight 150. BP 120 systolic, HR 70s. Mild dizziness unchanged. Breathing OK, walking more. mm Normal [facility] 36 Did you call patient RE: her lab results? Normal [facility] 29on 10-31-2024 29 Addended by: JAQUELIN MONCADA on: 10/31/2024 02:58 PM Modules accepted: Orders Normal [facility] 37on 10-31-2024 37 If weight gain great er than 3lbs/24 hours or > 5lbs in one week. Take 1/2 Lasix (furosemide) Normal [facility] BASIC METABOLIC PANELon 10-21 Anion gap [Moles/Vol] 6 mmol/L Normal 3-13 [facility] Comment on above: Performed By: #### L AB15 ####School Psychologist Assistant: JAQUELIN RICO ([id number])[facility] ([address] Calcium [Mass/Vol] 9.4 mg/dL Normal 8.8-10.0 [facility] Comment on above: Performed By: #### L AB15 ####School Psychologist Assistant: JAQUELIN RICO ([id number])[facility])[address] [place] [address] Chloride [Moles/Vol] 110 mmol/L High 98-107 [facility] Comment on above: Performed By: #### L AB15 ####School Psychologist Assistant: JAQUELIN RICO ([id number])[facility])[address] [place] [address] CO2 [Moles/Vol] 27 mmol/L Normal 23-31 [facility] Comment on above: Performed By: #### L AB15 ####School Psychologist Assistant: JAQUELIN RICO ([id number])[facility])[address] [place] [address] Creatinine [Mass/Vol] 1.47 mg/dL High 0.57-1.11 [facility] Comment on above: Performed By: #### L AB15 ####School Psychologist Assistant: JAQUELIN RICO ([id number])[facility])[address] [place] [address] GLOMERULAR FILTRATION RATE ML/MIN/1.73 SQ M.PREDICTED 35.7 mL/min/1.73m*2 Low >60.0 [facility] Comment on above: Result Comment: Calc ulation based on the Chronic Kidney Disease Epidemiology Collaboration (CKD-EPI) equation refit without adjustment for race Performed By: #### L AB15 ####School Psychologist Assistant: JAQUELIN RICO ([id number])[facility])[address] [place] [address] Glucose [Mass/Vol] 62 mg/dL Low 82-115 [facility] Comment on above: Performed By: #### L AB15 ####School Psychologist Assistant: JAQUELIN RICO ([id number])[facility])[address] [place] [address] Potassium [Moles/Vol] 4.7 mmol/L Normal 3.5-5.1 [facility] Comment on above: Result Comment: [facility] potassium values may be up to 0.5 mmol/L lower than serum values. Performed By: #### L AB15 ####School Psychologist Assistant: JAQUELIN RICO ([id number])[facility] ([facility])[address] [place] [address] Sodium [Moles/Vol] 143 mmol/L Normal 136-145 [facility] Comment on above: Performed By: #### L [id number] ####School Psychologist Assistant: JAQUELIN RICO ([id number])[facility] ([facility])[address] [place] [address] Urea nitrogen [Mass/Vol] 32 mg/dL High 9-23 [facility] Comment on above: Performed By: #### L AB15 ####School Psychologist Assistant: JAQUELIN RICO ([id number])[facility])[address] [place] [address] Basic metabolic 1998 panelon 10-31-2024 Anion gap [Moles/Vol] 6 mmol/L 3 - 13 mmol/L [facility] Calcium [Mass/Vol] 9.4 mg/dL 8.8 - 10. 0 mg/dL [facility] Chloride [Moles/Vol] 110 mmol/L High 98 - 10 7 mmol/L [facility] CO2 [Moles/Vol] 27 mmol/L 23 - 31 mmol/L [facility] Creatinine [Mass/Vol] 1.47 mg/dL High 0.57 - 1.11 mg/dL [facility] GFR/1.73 sq M.predicted (S/P/Bld) [Vol rate/Area] 35.7 mL/min Low - PINF [facility] Comment on above: Calculation based on the Chronic Kidney Disease Epidemiology Collaboration (CKD-EPI) equation refit without adjustment for race Glucose [Mass/Vol] 62 mg/dL Low 82 - 115 mg/dL [facility] Interpretation and review of laboratory results Abnormal [facility] Potassium [Moles/Vol] 4.7 mmol/L 3.5 - 5.1 mmol/L [facility] Comment on above: Plasma potassium olga lidia ues may be up to 0.5 mmol/L lower than serum values. Sodium [Moles/Vol] 143 mmol/L 136 - 145 mmol/L [facility] Urea nitrogen [Mass/Vol] 32 mg/dL High 9 - 23 mg/dL [facility] Office Visiton 10-31-2024 Follow-up visit [id number] Ingris Peralta 1945 F Date Provider Department Center 10/31/2024 [id number] JOEL [facility] [address] Family History Problem Relation Age of Onset Heart attack Mother Stroke Father Family Status - Relation Status Age at Mother Father Level of Service:26550 [place] OFFICE/OUTPATIENT ESTABLISHED MOD MDM 30 MIN Reason for Visit and Comments: Cardiac Valve Problem [1334] Hospital Follow-up [832] Normal [facility] Progress Noteon 10-31-2024 Progress Note [facility] - [place] [address] [place] [address] Dept: [phone] Dept Visit type: Established : 1945 Reason for Visit: Cardiac Valve Problem and Hospital Follow-up Assessment and Plan 1. Severe aortic stenosis S/p TAVR. Contiue Eliquis, SBE prophylaxis.Echo one month 2. Stage 3b chronic kidney disease (HCC) Repeat BMP 3. [place]'s disease (HCC) On chronic Cortef 4. Chronic [...] a PMH for CAD, HPL, DVT, PE, [place]'s disease, CKD s/p left nephrectomy (donated) and [...] specialty: Independent interpretation of tests: Basim Joel, LIDIA - TELLY [1] Allergies Allergen Reactions Amlodipine [...] Rfl: [3] Past Medical History: Diagnosis Date [place] anemia 2010 [4] Past Surgical History: Procedure Laterality Date BLADDER REPAIR CARDIAC CATHETERIZATION N/A 10/23/2024 Performed by Memo Canas MD at [facility] OR HX CYSTECTOMY (HISTORICAL) LAPAROSCOPIC NEPHRECTOMY (HISTORICAL) Left TOTAL ABDOMINAL HYSTERECTOMY [5] Family History Problem Relation Name (more content not included)... [facility] 10-29-2024 CNOV Office Visit (INTMWS ) -------- LINDA PERALTA ([id number]) 1945 F Date Time Provider Department 10/29/24 10:40 AM AMOS FLOYD INTMWS During your visit today, we recorded the following information about you: Temperature Pulse Respiration Blood pressure 97.5 degrees 60/minute 20/minute 112/72 Weight 69.6 kg Amos Floyd MD 10/29/2024 12:03 PM Addendum Subjective Linda Peralta is a 79 year old female here with her daughter. 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 She had some fluid retention prior to surgery and was prescribed furosemide 40 mg daily for 3 days with weight loss of around 20 pounds. She started regaining weight and was again advised 2 days of furosemide last week. Echo last week showed EF dropped to 20%. They have another echocardiogram scheduled. She has a follow up with [facility] this , and the [facility] later this month. ACTIVE PROBLEM [...] valve s (more content not included)... Normal [facility] BWX50ly 10-29-2024 ECG01 Ventricular Rate : 1 00 BPM Atrial Rate : 100 BPM P-R Interval : 142 ms QRS Duration : 88 ms Q-T Interval : 362 ms QTC Calculation(Bazett) : 466 ms Calculated P Van : 43 degrees Calculated R Van : -27 degrees Calculated T Van : 101 degrees NORMAL SINUS RHYTHM LEFT VENTRICULAR HYPERTROPHY WITH REPOLARIZATION ABNORMALITY ( R in aVL , Noel product ) ABNORMAL ECG Confirmed by MD GALLARDO QARAB ([id number]) on 10/31/2024 5:12:58 PM NAME : LINDA PERALTA PID : [id number] : 1945 Gender : Female Race : ORD : Procedure Date : Oct 29 2024 11:31:04 Edit Date : Oct 31 2024 17:19:41 Diagnosis: NORMAL SINUS RHYTHM LEFT VENTRICULAR HYPERTROPHY WITH REPOLARIZATION ABNORMALITY ( R in aVL , [place] product ) ABNORMAL ECG Confirmed by MD GALLARDO QARAB ([id number]) on 10/31/2024 5:12:58 PM Test Reason : Location : [address] [place] [address] Overread By : MD GALLARDO QARAB Edited By : MD GALLARDO QARAB Referred By : Amos Floyd Acquired by : Cassandra Vieira [facility] 36on 10-28-2024 36 Per TVT registry guidelines, 5 meter walk test completed in office on 09/03/24. 7 seconds, 7 seconds, 7 seconds Normal [facility] BASIC METABOLIC PANELon Anion gap [Moles/Vol] 7 mmol/L Normal -13 [facility] Comment on above: Performed By: #### L AB15 ####School Psychologist Assistant: JAQUELIN RICO ([id number])[facility] ([address] Calcium [Mass/Vol] 8.2 mg/dL Low 8.8-10.0 [facility] Comment on above: Performed By: #### L AB15 ####School Psychologist Assistant: JAQUELIN RICO ([id number])[facility] ([facility])[address] [place] [id number] [place] [address] Chloride [Moles/Vol] 111 mmol/L High 98-107 [facility] Comment on above: Performed By: #### L AB15 ####School Psychologist Assistant: JAQUELIN RICO ([id number])[facility] ([facility])[address] [place] [address] CO2 [Moles/Vol] 18 mmol/L Low 23-31 [facility] Comment on above: Performed By: #### L AB15 ####School Psychologist Assistant: JAQUELIN RICO ([id number])[facility] ([facility])[address] [place] [address] Creatinine [Mass/Vol] 1.57 mg/dL High 0.57-1.11 [facility] Comment on above: Performed By: #### L AB15 ####School Psychologist Assistant: JAQUELIN RICO ([id number])[facility] ([facility])[address] [place] [address] [place] GLOMERULAR FILTRATION RATE ML/MIN/1.73 SQ M.PREDICTED 33.0 mL/min/1.73m*2 Low >60.0 [facility] Comment on above: Result Comment: Calc ulation based on the Chronic Kidney Disease Epidemiology Collaboration (CKD-EPI) equation refit without adjustment for race Performed By: #### L AB15 ####School Psychologist Assistant: JAQUELIN RICO ([id number])[facility] ([facility])[address] [place] [address] [place] Glucose [Mass/Vol] 108 mg/dL Normal 82-115 [facility] Comment on above: Performed By: #### L AB15 ####School Psychologist Assistant: JAQUELIN RICO ([id number])[facility] ([facility])[address] [place] [address] [place] Potassium [Moles/Vol] 4.4 mmol/L Normal 3.5-5.1 [facility] Comment on above: Result Comment: [facility] potassium values may be up to 0.5 mmol/L lower than serum values. Performed By: #### L AB15 ####School Psychologist Assistant: JAQUELIN RICO ([id number])[facility] ([facility])[address] [place] [address] Sodium [Moles/Vol] 136 mmol/L Normal 136-145 [facility] Comment on above: Performed By: #### L AB15 ####School Psychologist Assistant: JAQUELIN RICO ([id number])[facility] ([facility])[address] [place] [address] Urea nitrogen [Mass/Vol] 38 mg/dL High 9-23 [facility] Comment on above: Performed By: #### L AB15 ####School Psychologist Assistant: JAQUELIN RICO ([id number])[facility] ([facility])[address] [place] [address] Basic metabolic 1998 panelon 10-24-2024 Anion gap [Moles/Vol] 7 mmol/L 3 - 13 mmol/L [facility] Calcium [Mass/Vol] 8.2 mg/dL Low 8.8 - 10. 0 mg/dL [facility] Chloride [Moles/Vol] 111 mmol/L High 98 - 10 7 mmol/L [facility] CO2 [Moles/Vol] 18 mmol/L Low 23 - 31 mmol/L [facility] Creatinine [Mass/Vol] 1.57 mg/dL High 0.57 - 1.11 mg/dL [facility] GFR/1.73 sq M.predicted (S/P/Bld) [Vol rate/Area] 33 mL/min Low - PINF [facility] Comment on above: Calculation based on the Chronic Kidney Disease Epidemiology Collaboration (CKD-EPI) equation refit without adjustment for race Glucose [Mass/Vol] 108 mg/dL 82 - 115 mg/dL [facility] Interpretation and review of laboratory results Abnormal [facility] Potassium [Moles/Vol] 4.4 mmol/L 3.5 - 5.1 mmol/L [facility] Comment on above: Plasma potassium olga lidia ues may be up to 0.5 mmol/L lower than serum values. Sodium [Moles/Vol] 136 mmol/L 136 - 145 mmol/L [facility] Urea nitrogen [Mass/Vol] 38 mg/dL High 9 - 23 mg/dL [facility] CBC (HEMOGRAM)on 10-24-2024 Erythrocyte distribution width (RBC) [Ratio] 15.1 % High 11.5-15.0 [facility] Comment on above: Performed By: #### L [id number] ####School Psychologist Assistant: JAQUELIN RICO ([id number])[facility])[address] [place] [address] Hematocrit (Bld) [Volume fraction] 40.3 % Normal 35.0-47.0 [facility] Comment on above: Performed By: #### L [id number] ####School Psychologist Assistant: JAQUELIN RICO ([id number])[address] Hemoglobin (Bld) [Mass/Vol] 12.8 g/dL Normal 11.7-16.0 [facility] Comment on above: Performed By: #### L [id number] ####School Psychologist Assistant: JAQUELIN RICO ([id number])[address] MCH (RBC) [Entitic mass] 29.3 pg Normal 26.0-34.0 [facility] Comment on above: Performed By: #### L [id number] ####School Psychologist Assistant: JAQUELIN RICO ([id number])[address] MCHC 31.8 % Normal 30.5-36.0 [facility] Comment on above: Performed By: #### L [id number] ####School Psychologist Assistant: JAQUELIN RICO ([id number])[address] MCV (RBC) [Entitic vol] 92.2 fL Normal 77.0-99.0 [facility] Comment on above: Performed By: #### L [id number] ####School Psychologist Assistant: JAQUELIN RICO ([id number])[facility])[address] [place] [address] Platelet mean volume (Bld) [Entitic vol] 12.5 fL Normal 9.0-12.7 [facility] Comment on above: Performed By: #### L [id number] ####School Psychologist Assistant: JAQUELIN RICO ([id number])[facility])[address] [place] [address] Platelets (Bld) [#/Vol] 132 10*3/uL Low 140-440 [facility] Comment on above: Performed By: #### L [id number] ####School Psychologist Assistant: JAQUELIN RICO ([id number])[facility])[address] [place] [address] RBC (Bld) [#/Vol] 4.37 10*6/uL Normal 3.80-5.20 [facility] Comment on above: Performed By: #### L [id number] ####School Psychologist Assistant: JAQUELIN RICO ([id number])[facility])[address] [place] [address] WBC (Bld) [#/Vol] 9.6 10*3/uL Normal 3.6-10.7 [facility] Comment on above: Performed By: #### L [id number] ####School Psychologist Assistant: JAQUELIN RICO ([id number])[address] CBC panel Auto (Bld)on 10-24 Erythrocyte distribution width (RBC) [Ratio] 15.1 % High 11.5 - 15.0 % [facility] Hematocrit (Bld) [Volume fraction] 40.3 % 35.0 - 47.0 % [facility] Hemoglobin (Bld) [Mass/Vol] 12.8 g/dL 11.7 - 16.0 g/dL [facility] Interpretation and review of laboratory results Abnormal [facility] MCH (RBC) [Entitic mass] 29.3 pg 26.0 - 34.0 pg [facility] MCHC (RBC) [Mass/Vol] 31.8 % 30.5 - 36.0 % [facility] MCV (RBC) [Entitic vol] 92.2 fL 77.0 - 99.0 fL [facility] Platelet mean volume (Bld) [Entitic vol] 12.5 fL 9.0 - 12.7 fL [facility] Platelets (Bld) [#/Vol] 132 10*3/uL Low 140 - 440 10*3/uL [facility] RBC (Bld) [#/Vol] 4.37 10*6/uL 3.80 - 5.2 0 10*6/uL [facility] WBC (Bld) [#/Vol] 9.6 10*3/uL 3.6 - 10.7 10*3/uL [facility] ECG 12-LEADon 10-24-2024 ECG 12-LEAD IMPRESSION: Sinus rhythm Atrial premature complex Probable left atrial enlargement Nonspecific T wave changes Electronically Signed On 10-24-2024 15:16:18 EDT by Frandy Mccoy [facility] No Panel InformationOrdered By: Frandy Mccoy on 10-24-2024 P Van 61 degrees [employer] Work Phone: RI Interval 145 ms [employer] Work Phone: QRS Van 2 degrees [employer] Work Phone: QRSD Interval 89 ms [employer] Work Phone: QT Interval 371 ms [employer] Work Phone: QTC Interval 445 ms [employer] Work Phone: T Wave Van 142 degrees [employer] Work Phone: [employer] Work Phone: [phone] No Panel Informationon 10-24 Sinus rhythm Atrial premature complex Probable left atrial enlargement Nonspecific T wave changes Electronically Signed On 10-24-2024 15:16:18 EDT by Frandy Macias M D - 10/24/2024 IMPRESSION: Sinus rhythm Atrial premature complex Probable left atrial enlargement Nonspecific T wave changes Electronically Signed On 10-24-2024 15:16:18 EDT by Frandy Mccoy [facility] Nursing Noteon 10-24-2024 Nursing Note All discharge instructions gone over with pt and family. Med rec revoewed in depth. All restrictions, activity, site care and precautions gone over along with appointments. Saline lock removed. To daughters car via wheelchair, discharged home. Normal [facility] Nursing Note Pt had a restful nig ht and even got up the the bathroom during the night with standby assist. Pt is up in a chair eating her Breakfast. Normal [facility] Progress Noteon 10-24-2024 Progress Note Physician Response Please review the following and provide your response below. Please clarify which of the following accurately describes the patient's CKD Stage: CKD Stage 3 (GFR 30-59) This documentation will become part of the patient's medical record. Normal [facility] Progress Note PHYSICAL THERAPY [facility] Name/MRN: Linda Peralta ([id number]) Date: 10/24/2024 PT orders received per Oniel activity/mobility score. Patient currently with Oniel activity/mobility score greater than 2. Per therapy services guidelines, will discharge PT orders. Please place regular PT eval/treat orders if deemed appropriate. Shea Perez, PT Normal [facility] US Heart TransthoracicOrdere d By: Jefferson Adorno on 10-24-2024 Aortic Sinus Valsalva 3.1 cm [facility] [employer] Phone: Aortic Sinus Valsalva Index 1.86 cm/m2 [employer] Phone: Aortic valve Mean systole pressure gradient by US.doppler derived full Bernoulli 5 mmHg [employer] Phone: Aortic valve Orifice area by US 3.1 cm2 [facility] Phone: [phone] Aortic valve Peak systolic flow by US.doppler 1.1 m/s [employer] Phone: [phone] Ascending Aorta 3.4 cm [employer] Phone: [phone] Ascending Aorta Index 2.04 cm/m2 [employer] Phone: [phone] AV Area by Peak Velocity 1.7 cm2 [employer] Phone: [phone] AV Area by VTI 1.5 cm2 [employer] Phone: AV AT 79.92 ms [facility] Work Phone: AV Peak Gradient 9 mmHg [facility] Work Phone: AV Peak Velocity 1.5 m/s [facility] Work Phone: AV Velocity Ratio 0.53 [facility] Work Phone: AV VTI 28.2 cm [facility] Work Phone: OMID/BSA Peak Velocity 1 cm2/m2 [facility] Work Phone: OMID/BSA VTI 0.9 cm2/m2 [facility] Work Phone: E/E' Lateral 17 [facility] Work Phone: E/E' Ratio (Averaged) 14.57 [facility] Work Phone: E/E' Septal 12.14 [facility] [employer] Phone: Est. RA Pressure 8 mmHg [facility] [employer] Phone: Fractional Shortening 2D 10 % 28 - 44 % [facility] Work Phone: Global Longitudinal Strain -9.4 % [facility] [employer] Phone: Interpretation and review of laboratory results Abnormal [facility] Phone: IVC Diameter 2.5 cm [facility] Phone: IVSd 1 cm Abnormal 0.6 - 0.9 cm [facility] Phone: [phone] LA Volume 2C 82 mL Abnormal 22 - 52 mL [facility] Work Phone: LA Volume 4C 49 mL 22 - 52 mL [facility] Phone: LA Volume A/L 68 mL [facility] Work Phone: LA Volume BP 63 mL Abnormal 22 - 52 mL [facility] Work Phone: LA Volume Index 2C 49 mL/m2 Abnormal 16 - 34 mL/m2 [facility] Phone: LA Volume Index 4C 29 mL/m2 16 - 34 mL/m2 [facility] Work Phone: [phone] LA Volume Index A/L 41 mL/m2 16 - 34 mL/m2 [facility] Work Phone: LA Volume Index BP 38 ml/m2 Abnormal 16 - 34 ml/m2 [facility] Work Phone: Left ventricular Ejection fraction by US.2D+Calculated by biplane method of disks 18 % Abnormal 55 - 100 % [facility] [employer] Work Phone: LV E' Lateral Velocity 5 cm/s [facility] Work Phone: LV E' Septal Velocity 7 cm/s [facility] Work Phone: LV EDV A2C 186 mL [facility] [employer] Work Phone: LV EDV A4C 183 mL [facility] Work Phone: LV EDV BP 190 mL Abnormal 56 - 104 mL [facility] Work Phone: LV EDV Index A2C 111 mL/m2 [facility] Work Phone: LV EDV Index A4C 110 mL/m2 [facility] Work Phone: LV EDV Index BP 114 mL/m2 [facility] Work Phone: LV Ejection Fraction A2C 21 % [facility] Work Phone: LV Ejection Fraction A4C 10 % [facility] Work Phone: LV ESV A2C 147 mL [facility] Work Phone: LV ESV A4C 164 mL [facility] Work Phone: LV ESV BP 157 mL Abnormal 19 - 49 mL [facility] Work Phone: LV ESV Index A2C 88 mL/m2 [facility] Work Phone: LV ESV Index A4C 98 mL/m2 [facility] Work Phone: LV ESV Index BP 94 mL/m2 [facility] Work Phone: LV Mass 2D 218.1 g Abnormal 67 - 162 g [facility] Work Phone: LV Mass 2D Index 130.6 g/m2 Abnormal 43 - 95 g/m2 [employer] Work Phone: LV RWT Ratio 0.31 [facility] Work Phone: LVIDd 5.8 cm Abnormal 3.9 - 5.3 cm [facility] Work Phone: LVIDd Index 3.47 cm/m2 [facility] Work Phone: LVIDs 5.2 cm [facility] Work Phone: LVIDs Index 3.11 cm/m2 [facility] Work Phone: LVOT Cardiac Output 3.6 liter/minute [facility] Work Phone: LVOT Diameter 2 cm [facility] Work Phone: LVOT Mean Gradient 2 mmHg [facility] [employer] Work Phone: LVOT Peak Gradient 3 mmHg [facility] [employer] Work Phone: LVOT Peak Velocity 0.8 m/s [facility] [employer] Work Phone: LVOT Stroke Volume Index 24.6 mL/m2 [facility] [employer] Work Phone: LVOT SV 41.1 ml [facility] Work Phone: LVOT VTI 13.1 cm [facility] Work Phone: LVOT:AV VTI Index 0.46 [facility] Work Phone: LVPWd 0.9 cm 0.6 - 0.9 cm [facility] Work Phone: MR VTI 177.7 cm [facility] Work Phone: MV A Velocity 1.28 m/s [facility] Work Phone: MV E Velocity 0.85 m/s [facility] Work Phone: MV E Wave Deceleration Time 140.6 ms [facility] Work Phone: MV E/A 0.66 [facility] Work Phone: MV Nyquist Velocity 36 cm/s [facility] Work Phone: MV Regurg Velocity PISA 5.6 m/s [facility] [employer] Phone: [phone] RA Area 4C 59.8 mL [facility] [employer] Work Phone: [phone] RA Area 4C 59.1 mL [facility] [employer] Phone: [phone] RV Basal Dimension 3.8 cm [facility] [employer] Phone: [phone] RV Free Wall Peak S' 13 cm/s [facility] [employer] Work Phone: [phone] RV Longitudinal Dimension 8.5 cm [facility] [employer] Phone: [phone] RV Mid Dimension 2.1 cm [facility] [employer] Phone: [phone] RVSP 58 mmHg [facility] [employer] Phone: [phone] Sinotubular Junction 2.1 cm [facility] [employer] Phone: [phone] TAPSE 2.3 cm 1.7 cm [facility] [employer] Phone: [phone] TR Max Velocity 3.55 m/s [facility] [employer] Phone: [phone] TR Peak Gradient 51 mmHg [facility] [employer] Phone: [phone] [facility] [employer] Phone: [phone] Heart Transthoracicon Left Ventricle: Left ventricle [...] Heart rate 89 /min bpm [facility] Work Phone: BASIC METABOLIC PANELon 09-0 Anion gap [Moles/Vol] 8 mmol/L Normal 3-13 [facility] Comment on above: Performed By: #### L [id number] #### School Psychologist Assistant: JAQUELIN RICO ([id number]) [facility] ([facility]) [address] [place] [address] Calcium [Mass/Vol] 7.9 mg/dL Low 8.8-10.0 [facility] Comment on above: Performed By: #### L AB15 #### School Psychologist Assistant: JAQUELIN RICO ([id number]) [facility] ([facility]) [address] [place] [address] Chloride [Moles/Vol] 113 mmol/L High 98-107 [facility] Comment on above: Performed By: #### L AB15 #### School Psychologist Assistant: JAQUELIN RICO ([id number]) [facility] ([facility]) [address] [place] [address] CO2 [Moles/Vol] 18 mmol/L Low 23-31 [facility] Comment on above: Performed By: #### L AB15 #### School Psychologist Assistant: JAQUELIN RICO ([id number]) [facility] ([facility]) [address] [place] [address] Creatinine [Mass/Vol] 1.47 mg/dL High 0.57-1.11 [facility] Comment on above: Performed By: #### L AB15 #### School Psychologist Assistant: JAQUELIN RICO ([id number]) [facility] ([facility]) [address] [place] [address] GLOMERULAR FILTRATION RATE ML/MIN/1.73 SQ M.PREDICTED 35.7 mL/min/1.73m*2 Low >60.0 [facility] Comment on above: Result Comment: Calc ulation based on the Chronic Kidney Disease Epidemiology Collaboration (CKD-EPI) equation refit without adjustment for race Performed By: #### L AB15 #### School Psychologist Assistant: JAQUELIN RICO ([id number]) [facility] ([facility]) [address] [place] [address] Glucose [Mass/Vol] 134 mg/dL High 82-115 [facility] Comment on above: Performed By: #### L AB15 #### School Psychologist Assistant: JAQUELIN RICO ([id number]) [facility] ([facility]) [address] [place] [address] Potassium [Moles/Vol] 4.0 mmol/L Normal 3.5-5.1 [facility] Comment on above: Result Comment: [facility] potassium values may be up to 0.5 mmol/L lower than serum values. Performed By: #### L AB15 #### School Psychologist Assistant: JAQUELIN RICO ([id number]) [facility] ([facility]) [address] [place] [address] Sodium [Moles/Vol] 139 mmol/L Normal 136-145 [facility] Comment on above: Performed By: #### L AB15 #### School Psychologist Assistant: JAQUELIN RICO ([id number]) [facility] ([facility]) [address] [place] [address] Urea nitrogen [Mass/Vol] 34 mg/dL High 9-23 [facility] Comment on above: Performed By: #### L AB15 #### School Psychologist Assistant: JAQUELIN RICO ([id number]) [facility]) [address] [place] [address] BLOOD TYPE AND SCREEN GELon 10-23-2024 ABO GROUPING O Normal [facility] Comment on above: Performed By: #### L AB276 ####School Psychologist Assistant: JAQUELIN RICO ([id number])[facility] ([facility])[address] [place] [address] RH TYPE IN BLOOD Positive Normal [facility] Comment on above: Performed By: #### L AB276 ####School Psychologist Assistant: JAQUELIN [id number])[facility] ([facility])[address] [place] [address] Basic metabolic 1998 panelon 10-23-2024 Anion gap [Moles/Vol] 8 mmol/L 3 - 13 mmol/L [facility] Calcium [Mass/Vol] 7.9 mg/dL Low 8.8 - 10. 0 mg/dL [facility] Chloride [Moles/Vol] 113 mmol/L High 98 - 10 7 mmol/L [facility] CO2 [Moles/Vol] 18 mmol/L Low 23 - 31 mmol/L [facility] Creatinine [Mass/Vol] 1.47 mg/dL High 0.57 - 1.11 mg/dL [facility] GFR/1.73 sq M.predicted (S/P/Bld) [Vol rate/Area] 35.7 mL/min Low - PINF [facility] Comment on above: Calculation based on the Chronic Kidney Disease Epidemiology Collaboration (CKD-EPI) equation refit without adjustment for race Glucose [Mass/Vol] 134 mg/dL High 82 - 115 mg/dL [facility] Interpretation and review of laboratory results Abnormal [facility] Potassium [Moles/Vol] 4 mmol/L 3.5 - 5.1 mmol/L [facility] Comment on above: Plasma potassium olga lidia ues may be up to 0.5 mmol/L lower than serum values. Sodium [Moles/Vol] 139 mmol/L 136 - 145 mmol/L [facility] Urea nitrogen [Mass/Vol] 34 mg/dL High 9 - 23 mg/dL [facility] Blood type and Crossmatch nighat dee dee (Bld)on 10-23-2024 ABO group Nom (Bld) O [facility] Blood group antibody screen GEL Ql Negative [facility] D Ag Ql (RBC) Positive [facility] CBC (HEMOGRAM)on 10-23-2024 Erythrocyte distribution width (RBC) [Ratio] 15.1 % High 11.5-15.0 [facility] Comment on above: Performed By: #### L AB294 ####School Psychologist Assistant: JAQUELIN RICO ([id number])[facility] ([facility])[address] [place] [address] Hematocrit (Bld) [Volume fraction] 39.7 % Normal 35.0-47.0 [facility] Comment on above: Performed By: #### L AB294 ####School Psychologist Assistant: JAQUELIN RICO ([id number])[facility])[address] [place] [address] Hemoglobin (Bld) [Mass/Vol] 12.4 g/dL Normal 11.7-16.0 [facility] Comment on above: Performed By: #### L AB294 ####School Psychologist Assistant: JAQUELIN RICO ([id number])[facility] ([facility])[address] [place] [address] MCH (RBC) [Entitic mass] 29.7 pg Normal 26.0-34.0 [facility] Comment on above: Performed By: #### L AB294 ####School Psychologist Assistant: JAQUELIN RICO ([id number])[facility])[address] [place] [address] MCHC 31.2 % Normal 30.5-36.0 [facility] Comment on above: Performed By: #### L AB294 ####School Psychologist Assistant: JAQUELIN RICO ([id number])[facility] ([facility])[address] [place] [address] MCV (RBC) [Entitic vol] 95.0 fL Normal 77.0-99.0 [facility] Comment on above: Performed By: #### L AB294 ####School Psychologist Assistant: JAQUELIN RICO ([id number])[facility])[address] [place] [address] Platelet mean volume (Bld) [Entitic vol] 12.6 fL Normal 9.0-12.7 [facility] Comment on above: Performed By: #### L AB294 ####School Psychologist Assistant: JAQUELIN RICO ([id number])[facility])[address] [place] [address] Platelets (Bld) [#/Vol] 119 10*3/uL Low 140-440 [facility] Comment on above: Performed By: #### L AB294 ####School Psychologist Assistant: JAQUELIN RICO ([id number])[facility] ([facility])[address] [place] [address] RBC (Bld) [#/Vol] 4.18 10*6/uL Normal 3.80-5.20 [facility] Comment on above: Performed By: #### L AB294 ####School Psychologist Assistant: JAQUELIN RICO ([id number])[facility] ([facility])[address] [place] [address] WBC (Bld) [#/Vol] 8.5 10*3/uL Normal 3.6-10.7 [facility] Comment on above: Performed By: #### L AB294 ####School Psychologist Assistant: JAQUELIN RICO ([id number])[facility] ([facility])[address] [place] [address] CBC panel Auto (Bld)Ordered By: Janay Wood on 10-23-2024 Erythrocyte distribution width (RBC) [Ratio] 15.1 % High 11.5 - 15.0 % [facility] Hematocrit (Bld) [Volume fraction] 39.7 % 35.0 - 47.0 % [facility] Hemoglobin (Bld) [Mass/Vol] 12.4 g/dL 11.7 - 16.0 g/dL [facility] Interpretation and review of laboratory results Abnormal [facility] MCH (RBC) [Entitic mass] 29.7 pg 26.0 - 34.0 pg [facility] MCHC (RBC) [Mass/Vol] 31.2 % 30.5 - 36.0 % [facility] MCV (RBC) [Entitic vol] 95 fL 77.0 - 99.0 fL [facility] Platelet mean volume (Bld) [Entitic vol] 12.6 fL 9.0 - 12.7 fL [facility] Platelets (Bld) [#/Vol] 119 10*3/uL Low 140 - 440 10*3/uL [facility] RBC (Bld) [#/Vol] 4.18 10*6/uL 3.80 - 5.2 0 10*6/uL [facility] WBC (Bld) [#/Vol] 8.5 10*3/uL 3.6 - 10.7 10*3/uL [facility] Cardiac catheterization stud yon 10-23-2024 Successful TAVR [...] Via the right IJ vein, a 6 Barbadian sheath was placed and temporary pacing wire was placed into the RV apex with appropriate capture, in addition sterile tubing was attached and given the anesthesia for central access. Via radial artery artery, a 6-Barbadian sheath was placed and the pigtail catheter was placed into the aortic annulus with confirmation the implant angle. Via the right femoral artery, a 6-Barbadian sheath was placed. The patient was then heparinized. Next, two Perclose devices were used using the pre-close strategy. A Super Stiff wire was then placed through the second Perclose into the descending aorta. Then, a 14-Barbadian Phong E-sheath was introduced over the wire [...] care of your patient while hospitalized at [facility]. I will continue to follow along while hospitalized. Please do not hesitate to call with any questions. [facility] Cardiac catheterization stud yOrdered By: Memo Canas on 10-23-2024 [facility] Phone: ECG 12-LEADon 10-23-2024 ECG 12-LEAD IMPRESSION: Sinus rhythm Left atrial enlargement Nonspecific T wave changes Borderline prolonged QT interval No previous ECG available for comparison Electronically Signed On 10-23-2024 11:58:19 EDT by Antonia Neumann Normal [facility] No Panel InformationOrdered By: Antonia Neumann on 10-23-2024 P Van 66 degrees [employer] Phone: RI Interval 153 ms [employer] Phone: QRS Van 7 degrees [employer] Phone: QRSD Interval 100 ms [employer] Phone: QT Interval 427 ms [employer] Phone: QTC Interval 491 ms [facility] Phone: T Wave Van 170 degrees [facility] Phone: [employer] Phone: No Panel Informationon 10-23 Sinus rhythm [...] On 10-23-2024 11:58:19 EDT by Antonia Neumann [facility] Interpretation and review of laboratory results Abnormal [employer] [facility] POCT ACT 320 High [facility] Performed by: [facility], [address] [place] [id number] CLIA ID: [id number] [facility] Blood Expiration Date [id number] S [facility] Crossmatch interpretation COMP [facility] [facility] Dispense Status Crossmatch [facility] Product Blood Type 5100 [facility] PRODUCT CODE [id number] [facility] Unit ABO O [facility] Unit Number [id number] [facility] Unit Number [id number] [facility] RH Positive [facility] Unit Volume 300 mL [facility] ONE[facility] Op Noteon 10-23-2024 Op Note CARDIOTHORACIC SURGERY--OPERATIVE NOTE Date: 10/23/24 Preoperative diagnosis: Severe symptomatic aortic stenosis Chronic diastolic congestive heart failure Frailty Postoperative diagnosis: Severe symptomatic aortic stenosis Chronic diastolic congestive heart failure Frailty Surgeon: Rocky Self DO Supervisor Claims: Memo Canas MD Procedure: Transcatheter aortic valve [...] Rocky Self DO FACS Cardiothoracic Surgery Normal [facility] Progress Noteon 10-23-[address] Canas contacted about pre-procedure steroid not ordered. No new orders at this time for 729 case. Normal [facility] Progress Note X-ray to bedside Normal [facility] Progress Note Called for chest X-RAY Normal [facility] US Heart TransthoracicOrdere d By: Marcin Echeverria on 10-23-2024 Aortic valve Mean systole pressure gradient by US.doppler derived full Bernoulli 3 mmHg [facility] Phone: [phone] Ascending Aorta 3.2 cm [employer] Phone: [phone] Ascending Aorta Index 1.84 cm/m2 [facility] Phone: [phone] AV Area (Pre-TAVR) 0.6 cm2 [employer] Phone: [phone] AV Area by Peak Velocity 0.7 cm2 [employer] Phone: [phone] AV Area by VTI 0.6 cm2 [employer] Phone: [phone] AV Mean Gradient (Pre-TAVR) 25 mmHg [employer] Phone: [phone] AV Peak Gradient (Pre-TAVR) 15 mmHg [facility] Phone: [phone] AV Peak Velocity (Pre-TAVR) 2.5 m/s [employer] Phone: [phone] OMID/BSA Peak Velocity 0.4 cm2/m2 [facility] [employer] Phone: [phone] OMID/BSA VTI 0.3 cm2/m2 [facility] Phone: Est. RA Pressure 8 mmHg [facility] [employer] Phone: [phone] LVOT Cardiac Output 2.7 liter/minute [facility] [employer] Phone: [phone] LVOT Mean Gradient 1 mmHg [facility] Phone: [phone] LVOT Peak Gradient 1 mmHg [facility] Phone: [phone] LVOT Peak Velocity 0.6 m/s [facility] Phone: [phone] LVOT VTI 10 cm [facility] Phone: [phone] MR VTI 169.2 cm [facility] Phone: [phone] MV Nyquist Velocity 36 cm/s [facility] Phone: [phone] MV Regurg Velocity PISA 5.3 m/s [facility] Phone: [phone] RVSP 50 mmHg [facility] Phone: [phone] TR Max Velocity 3.25 m/s [facility] Phone: [phone] TR Peak Gradient 42 mmHg [facility] Phone: [facility] Phone: Heart Transthoracicon Left Ventricle: Left ventricle [...] on 10-23-2024 Heart rate 79 /min bpm [facility] Work Phone: XR CHEST 1 VIEWon 10-23-2024 XR CHEST 1 VIEW [facility] 1945 [id number] Ex[facility] Date/Time: 10/23/2024 06:14 Procedure: XR CHEST [...] Electronically Signed Date/Time: 10/23/2024 10:03 AM EDT [facility] XR Chest Single viewon 10-23 1. Prominence of the cardiac silhouette. 2. Apparent small bilateral pleural effusions. Report Dictated on Electronically Signed By: Arelis Arauz MD Electronically Signed Date/Time: 10/23/2024 10:03 AM EDT [facility] Patient Name: LINDA TEJADA : 1945 Exam [...] fracture. VASCULATURE: Calcification of the thoracic aorta. [facility] Arelis Arauz M D - 10/23/2024 Patient [...] Date/Time: 10/23/2024 10:03 AM EDT [facility] Radiology Study observation (narrative) [facility] XR Chest Single viewOrdered By: Arelis Arauz on 10-23-2024 [facility] Work Phone: 36on 10-22-2024 36 Letter refaxed to [phone] along w/ Kishore chart note. Confirmation 10/16/24 at 3:07p Confirmed 10/22/2024 at 3:59p [place] [address] Gregory 's office to follow-up on IV hydrocortisone dosing. Did not receive fax from last week, confirmed number of [phone]. Requested patient will need to have telephone visit at [address] Gregory to review instructions. Requested to have OV note and letter re-faxed to the above number. Will provide valve clinic fax number so Dr. Gregory's office can fax recommendations back [place] [address] Approved per fax. Scanned in under Media. Approval [id number] Sched on all 3 s and requested on Snapboard. [facility] 36on 10-18-2024 36 Labs scanned under Media [place] [address] Requested lab from [place]. She is faxing them to [facility]. [facility] 36on 10-17-2024 36 Pending on [employer] using [place] telephone visit from yesterday. Pending# [id number] [facility] 36on 10-16-2024 36 Letter and Kishore valdez note faxed to [phone] and confirmed Normal [facility] [address] Marco A gore Requesting fax regarding medication recommendation sent to [phone]. Will discuss with Jo Levy. Normal [facility] [address] Marco A major Placed on hold and disconnected. Will try again later. Normal [facility] 36 Reviewed plan for bridging with [facility] pharmacist. Patient's CrCl is 31. She advised lovenox 40 mg BID for bridging. -patient will take last dose of Eliquis on 10/19/24 -starting on 10/20/24, patient will start lovenox 40 mg BID -she will take her last dose of lovenox morning of 10/22. -No lovenox the evening of 10/22 or morning of 10/23 [facility] Progress Noteon 10-16-2024 Progress Note [facility] Telehealth Cardiology Note DATE of SERVICE: 10/16/24 TIME of SERVICE: 12:45 PM Chief Complaint: Chief Complaint Patient presents with Follow-up History of Present Illness: Linda Peralta is a 79 y.o. female known to Dr. Marte with a history for CAD, HPL, DVT, PE, [place]'s disease, CKD s/p left nephrectomy (donated) and [...] dyspnea with moderate activity. No CAD per [facility]. Weight 156 lbs. Last clinic visit [...] redirect to the Timeline version of the [employer]. Limited Telehealth exam Constitutional: [x]Alert [x]Oriented [...] or 3b CKD (HCC) CKD followed by softball coach Dr. Tarango in [place]. Most recent BMP showed SCr 1.61 with CrCl 31. 3. Acute deep vein thrombosis (DVT) of right lower extremity, unspecified vein (HCC) Questionable IVC filter. Currently on Eliquis. Per daughter, LE edema has improved. Post TAVR, will refer patient to Dr. Gaffney-vascular. We reached out to [facility] clinic for recommendations on bridging. Will [...] a day for 2 days only. 5. [place]'s disease (HCC) Patient is currently taking hydrocortisone (Cortef) 10 mg TID. Will reach out to glue bone crusher Dr. Gregory in [place] ([phone]). for recommendations on IV hydrocortisone prior to [...] patient de (more content not included)... Normal [facility] 36on 10-15-2024 36 Lab order faxed to [place] lab [phone]/confirmed Normal [facility] 36 I need PB to please finish his chart note so I can submit this auth Normal [facility] Anion gap in Serum or Plasma on 10-15-2024 Anion gap [Moles/Vol] 12 mmol/L 5-15 [facility] BUN/creatinine ratioon 10-15 Urea nitrogen/Creatinine [Mass ratio] 20.3 mg/mg High 10-20 [facility] Basic Metabolic Profile (BMP )on 10-15-2024 BUN/CRE 20.3 RATIO High 10- [facility] Comment on above: Performed By: #### L 100.0500, L500.2500 ####[facility] [address] [place], [address] Calcium [Mass/Vol] 9.5 mg/dL Normal 7.6-11.0 [facility] Comment on above: Performed By: #### L 100.0500, L500.2500 ####[facility] [address] [place], [address] Chloride [Moles/Vol] 109 mmol/L High 98-108 [facility] Comment on above: Performed By: #### L 100.0500, L500.2500 ####[facility] [address] [place], [address] CO2 [Moles/Vol] 20.9 mmol/L Low 21.0-32.0 [facility] Comment on above: Performed By: #### L 100.0500, L500.2500 ####[facility] [address] [place], [address] Creatinine [Mass/Vol] 1.61 mg/dL High 0.70-1.20 [facility] Comment on above: Performed By: #### L 100.0500, L500.2500 ####[facility] [address] [place], [address] GAP 12 Normal 5-15 [facility] Comment on above: Performed By: #### L 100.0500, L500.2500 ####[facility] [address] [place], [address] GFR/1.73 sq M.predicted among non-blacks MDRD (S/P/Bld) [Vol rate/Area] 32 mL/min/{1.73_m2} Low >60 [facility] Comment on above: Result Comment: mL/m in/1.73m2 CKD-EPI Creatinine Equation (2020) Performed By: #### L 100.0500, L500.2500 ####[facility] [address] [place], [address] Glucose [Mass/Vol] 101 mg/dL High 70-99 [facility] Comment on above: Performed By: #### L 100.0500, L500.2500 ####[facility] [address] [place], [address] Potassium [Moles/Vol] 4.8 mmol/L Normal 3.3-5.1 [facility] Comment on above: Performed By: #### L 100.0500, L500.2500 ####[facility] [address] [place], [address] Sodium [Moles/Vol] 142 mmol/L Normal 133-145 [facility] Comment on above: Performed By: #### L 100.0500, L500.2500 ####[facility] [address] [place], [address] Urea nitrogen [Mass/Vol] 33 mg/dL High 4-19 [facility] Comment on above: Performed By: #### L 100.0500, L500.2500 ####[facility] [address] [place], [address] CBC-Complete Blood Cnt No Di ffon 10-15-2024 Erythrocyte distribution width (RBC) [Ratio] 15.2 % High 11.6-14.6 [facility] Comment on above: Performed By: #### L 100.0500, L500.2500 ####[facility] [address] [place], [address] Hematocrit (Bld) [Volume fraction] 47.1 % High 37-47 [facility] Comment on above: Performed By: #### L 100.0500, L500.2500 ####[facility] [address] [place], [address] Hemoglobin (Bld) [Mass/Vol] 14.9 g/dL Normal 12.0-15.0 [facility] Comment on above: Performed By: #### L 100.0500, L500.2500 ####[facility] [address] [place], [address] MCH (RBC) [Entitic mass] 29.9 pg Normal 27.0-32.0 [facility] Comment on above: Performed By: #### L 100.0500, L500.2500 ####[facility] [address] [place], [address] MCHC (RBC) [Mass/Vol] 31.6 g/dL Low 32-36 [facility] Comment on above: Performed By: #### L 100.0500, L500.2500 ####[facility] [address] [place], [address] MCV (RBC) [Entitic vol] 94.4 fL Normal 81-99 [facility] Comment on above: Performed By: #### L 100.0500, L500.2500 ####[facility] [address] [place], [address] Platelet mean volume (Bld) [Entitic vol] 12.8 fL High 6.2-12.0 [facility] Comment on above: Performed By: #### L 100.0500, L500.2500 ####[facility] [address] [place], [address] Platelets (Bld) [#/Vol] 179 10*3/uL Normal 150-450 [facility] Comment on above: Performed By: #### L 100.0500, L500.2500 ####[facility] [address] [place], [address] RBC (Bld) [#/Vol] 4.99 10*6/uL Normal 4.2-5.4 [facility] Comment on above: Performed By: #### L 100.0500, L500.2500 ####[facility] [address] [place], [address] RDW SD 53.1 fl High 35.1-43.9 [facility] Comment on above: Performed By: #### L 100.0500, L500.2500 ####[facility] [address] [place], [address] WBC (Bld) [#/Vol] 9.9 10*3/uL Normal 4.4-11.0 [facility] Comment on above: Performed By: #### L 100.0500, L500.2500 ####[facility] [address] [place] [place], [address] Carbon dioxide, total [Moles /volume] in Central venous bloodon 10-15-2024 CO2 [Moles/Vol] 20.9 mmol/L Low 21.0-32.0 [facility] Chloride assayon 10-15-2024 Chloride [Moles/Vol] 109 mmol/L High 98-108 [facility] Erythrocyte distribution wid th ratioon 10-15-2024 Erythrocyte distribution width (RBC) [Ratio] 15.2 % High 11.6-14.6 [facility] Erythrocyte distribution wid th standard deviationon 10-15-2024 Erythrocyte distribution width (RBC) [Ratio] 53.1 fl High 35.1-43.9 [facility] Glomerular filtration rate ( GFR) estimation/1.73 sq m using serum, plasma, or whole bon 10-15-2024 GFR/1.73 sq M.predicted among non-blacks MDRD (S/P/Bld) [Vol rate/Area] 32 mL/min/{1.73_m2} Low >60 [facility] Comment on above: mL/min/1.73m2 CKD-EP I Creatinine Equation (2020) Hematocrit Auto (Bld) [Volum e fraction]on 10-15-2024 Hematocrit (Bld) [Volume fraction] 47.1 % High 37-47 [facility] Hemoglobin measurementon Hemoglobin (Bld) [Mass/Vol] 14.9 g/dL 12.0-15.0 [facility] MCV (mean corpuscular volume ) determinationon 10-15-2024 MCV (RBC) [Entitic vol] 94.4 fL 81-99 [facility] Mean corpuscular hemoglobin (MCH) determinationon 10-15-2024 MCH (RBC) [Entitic mass] 29.9 pg 27.0-32.0 [facility] Mean corpuscular hemoglobin concentration (MCHC) determinationon 10-15-2024 MCHC (RBC) [Mass/Vol] 31.6 g/dL Low 32-36 [facility] Mean platelet volume determi nationon 10-15-2024 Platelet mean volume (Bld) [Entitic vol] 12.8 fL High 6.2-12.0 [facility] Platelet counton 10-15-2024 Platelets (Bld) [#/Vol] 179 10*3/uL 150-450 [facility] Potassium measurement (mass/ volume)on 10-15-2024 Potassium (Unsp spec) [Mass/Vol] 4.8 mmol/L 3.3-5.1 [facility] RBC Auto (Bld) [#/Vol]on RBC (Bld) [#/Vol] 4.99 10*6/uL 4.2-5.4 [facility] Serum creatinine measurement (mass/volume)on 10-15-2024 Creatinine [Mass/Vol] 1.61 mg/dL High 0.70-1.20 [facility] Serum glucose measurement (m ass/volume)on 10-15-2024 Glucose [Mass/Vol] 101 mg/dL High 70-99 [facility] Serum or plasma calcium scott urement (mass/volume)on 10-15-2024 Calcium [Mass/Vol] 9.5 mg/dL 7.6-11.0 [facility] Serum or plasma urea nitroge n measurement (mass/volume)on 10-15-2024 Urea nitrogen [Mass/Vol] 33 mg/dL High 4-19 [facility] Sodium levelon 10-15-2024 Sodium [Moles/Vol] 142 mmol/L 133-145 [facility] White blood cell (WBC) count on 10-15-2024 WBC (Bld) [#/Vol] 9.9 10*3/uL 4.4-11.[address] 10-14-2024 36 Spoke with patient, she will have labs drawn tomorrow at [place]. Will have clinical secretary fax lab orders over [place] [address] Patient is scheduled for TAVR on 10/23/24. -Reviewed bridging with [facility] pharmacist. Patient current CrCl is 24 [...] morning. (Will review this with Dr. Canas) [place] [address]on 10-10-2024 36 Results scanned unde r Media Normal [facility] 36 I called and spoke dana BarreraSalima and she is faxing result [place] [address] Reviewed with Butch carlson APRN as patient completed renal US, plan if BMP shows stable function to proceed with TAVR. BMP results from 10/03/24 at [place] show creatinine 1.82 with GRF 28. Will have MANAGER TRACK review and place TAVR case request if appropriate [place] [address]on 10-08-2024 36 I need PB chart note finished from 09/03/24 to do this auth [place] [address]on 10-07-2024 36 I called [place] lab and l/m to send me results [facility] Anion gap in Serum or Plasma Ordered By: Basim Joel on 10-03-2024 Anion gap [Moles/Vol] 13 mmol/L 5-15 [facility] BUN/creatinine ratioOrdered By: Basim Joel on 10-03-2024 Urea nitrogen/Creatinine [Mass ratio] 23.9 mg/mg High 10-20 [facility] Basic Metabolic Profile (BMP )on 10-03-2024 BUN/CRE 23.9 RATIO High 10-20 [facility] Comment on above: Performed By: #### L 500.2500 ####[facility] [address] [place], [address] Calcium [Mass/Vol] 10.2 mg/dL Normal 7.6-11.0 [facility] Comment on above: Performed By: #### L 500.2500 ####[facility] [address] [place], [address] Chloride [Moles/Vol] 106 mmol/L Normal 98-108 [facility] Comment on above: Performed By: #### L 500.2500 ####[facility] [address] [place], [address] CO2 [Moles/Vol] 22.6 mmol/L Normal 21.0-32.0 [facility] Comment on above: Performed By: #### L 500.2500 ####[facility] [address] [place], [address] Creatinine [Mass/Vol] 1.82 mg/dL High 0.70-1.20 [facility] Comment on above: Performed By: #### L 500.2500 ####[facility] [address] [place], [address] GAP 13 Normal 5-15 [facility] Comment on above: Performed By: #### L 500.2500 ####[facility] [address] [place], [address] GFR/1.73 sq M.predicted among non-blacks MDRD (S/P/Bld) [Vol rate/Area] 28 mL/min/{1.73_m2} Low >60 [facility] Comment on above: Result Comment: mL/m in/1.73m2 CKD-EPI Creatinine Equation (2020) Performed By: #### L 500.2500 ####[facility] [address] [place], [address] Glucose [Mass/Vol] 77 mg/dL Normal 70-99 [facility] Comment on above: Performed By: #### L 500.2500 ####[facility] [address] [place], [address] Potassium [Moles/Vol] 5.5 mmol/L High 3.3-5.1 [facility] Comment on above: Performed By: #### L 500.2500 ####[facility] [address] [place], [address] Sodium [Moles/Vol] 142 mmol/L Normal 133-145 [facility] Comment on above: Performed By: #### L 500.2500 ####[facility] [address] [place], [address] Urea nitrogen [Mass/Vol] 44 mg/dL High 4-19 [facility] Comment on above: Performed By: #### L 500.2500 ####[facility] [address] [place], [address] Carbon dioxide, total [Moles /volume] in Central venous bloodOrdered By: Basim Joel on 10-03-2024 CO2 [Moles/Vol] 22.6 mmol/L 21.0-32.0 [facility] Chloride assayOrdered By: Nerissa Joel on 10-03-2024 Chloride [Moles/Vol] 106 mmol/L 98-108 [facility] Glomerular filtration rate ( GFR) estimation/1.73 sq m using serum, plasma, or whole bOrdered By: Basim Joel on 10-03-2024 GFR/1.73 sq M.predicted among non-blacks MDRD (S/P/Bld) [Vol rate/Area] 28 mL/min/{1.73_m2} Low >60 [facility] Comment on above: mL/min/1.73m2 CKD-EP I Creatinine Equation (2020) Potassium measurement (mass/ volume)Ordered By: Basim Joel on 10-03-2024 Potassium (Unsp spec) [Mass/Vol] 5.5 mmol/L High 3.3-5.1 [facility] Serum creatinine measurement (mass/volume)Ordered By: Basim Joel on 10-03-2024 Creatinine [Mass/Vol] 1.82 mg/dL High 0.70-1.20 [facility] Serum glucose measurement (m ass/volume)Ordered By: Basim Joel on 10-03-2024 Glucose [Mass/Vol] 77 mg/dL 70-99 [facility] Serum or plasma calcium scott urement (mass/volume)Ordered By: Basim Joel on 10-03-2024 Calcium [Mass/Vol] 10.2 mg/dL 7.6-11.0 [facility] Serum or plasma urea nitroge n measurement (mass/volume)Ordered By: Basim Joel on 10-03-2024 Urea nitrogen [Mass/Vol] 44 mg/dL High 4-19 [facility] Sodium levelOrdered By: David Joel on 10-03-2024 Sodium [Moles/Vol] 142 mmol/L 133-145 [facility] 36on 10-02-2024 36 Order faxed to and confirmed Normal [facility] 36 Spoke with patient regarding US kidney. Repeat BMP . Please send lab req [facility]. [facility] Dr. Canas Normal [facility] Cardiac Cath Diagnosticon Cardiac Cath Diagnostic Normal [facility] ECG 12 lead - CLINIC PERFORM EDon 09-29-2024 Sinus Rhythm -occasi onal ectopic ventricular beat -Combined atrial enlargement. -Nonspecific ST depression + Nonspecific T-abnormality -Nondiagnostic. [facility] 36on 09-26-2024 36 BMP review. Bump in BUN/creat after 3 days of 40 mg po Lasix. Spoke with daughter. Weight down to 144 #, swelling, improved, dyspnea improved. Will use Lasix 20 mg po for weight gain greater than 3 lbs overnight or 5lbs in a week. Daughter will relay recommendations. Normal [facility] Basic metabolic 2000 panelon 09-26-2024 Anion gap [Moles/Vol] 16 mmol/L High 8-15 [facility] Comment on above: Order Comment: Speci men Type: BLOOD SPECIMENOrdering Facility: [facility] Address: [address] [place] [address] Performed By: #### 2 4321-2 ####[facility] LIVE MILLTOWNCLIA [id number] [place] [address] [place] Calcium [Mass/Vol] 10.0 mg/dL Normal 8.5-10.2 [facility] Comment on above: Order Comment: Speci men Type: BLOOD SPECIMENOrdering Facility: [facility] Address: [address] [place] [address] Performed By: #### 2 4321-2 ####[facility] HOSPITALWKEYLALIA [id number] [place] [address] [place] Chloride [Moles/Vol] 98 mmol/L Normal 98-107 [facility] Comment on above: Order Comment: Speci men Type: BLOOD SPECIMENOrdering Facility: [facility] Address: [address] [place] [address] Performed By: #### 2 4321-2 ####[facility] LIVE MILLWNCLIA [id number] [place] [address] [place] CO2 [Moles/Vol] 24 mmol/L Normal 22-30 [facility] Comment on above: Order Comment: Speci men Type: BLOOD SPECIMENOrdering Facility: [facility] Address: [address] [place] [address] Performed By: #### 2 4321-2 ####[facility] MIRAMARNCLIA [id number] [place] [address] [place] Creatinine [Mass/Vol] 2.12 mg/dL High 0.58-0.96 [facility] Comment on above: Order Comment: Speci men Type: BLOOD SPECIMENOrdering Facility: [facility] Address: [address] [place] [address] Performed By: #### 2 4321-2 ####[facility]IRAMARNCTIMP[facility] [id number] [place] [address] [place] eGFRcr SerPlBld CKD-EPI 2020 23 mL/min/1.73m??? Low >=60 [facility] Comment on above: Order Comment: Jody fairbanks Type: BLOOD SPECIMENOrdering Facility: [facility] Address: [address] [place] [address] Result Comment: Marisabel mated Glomerular Filtration Rate [...] actual GFR. Performed By: #### 2 4321-2 ####[facility] [id number] [place] [address] [place] Glucose [Mass/Vol] 106 mg/dL High 74-99 [facility] Comment on above: Order Comment: Jody fairbanks Type: BLOOD SPECIMENOrdering Facility: [facility] Address: [address] [place] [address] Result Comment: The [place] Diabetes Association (ADA) provides guidance for cutoff [...] Standards of Medical Care in Diabetes 2016, [place] [employer]. Diabetes Care. 2016.39(Suppl 1). Performed By: #### 2 4321-2 ####[facility] [id number] [place] [address] [place] Potassium [Moles/Vol] 4.1 mmol/L Normal 3.7-5.1 [facility] Comment on above: Order Comment: Speci men Type: BLOOD SPECIMENOrdering Facility: [facility] Address: [address] [place] [address] Performed By: #### 2 4321-2 ####[facility] LIVE JACKSONWKEYLALIA [id number] [place] [address] [place] Sodium [Moles/Vol] 138 mmol/L Normal 136-144 [facility] Comment on above: Order Comment: Speci men Type: BLOOD SPECIMENOrdering Facility: [facility] Address: [address] [place] [address] Performed By: #### 2 4321-2 ####[facility] LIVE NERINCLIA [id number] [place] [address] [place] Urea nitrogen [Mass/Vol] 48 mg/dL High 7-21 [facility] Comment on above: Order Comment: Speci men Type: BLOOD SPECIMENOrdering Facility: [facility] Address: [address] [place] [address] Performed By: #### 2 4321-2 ####[facility] LIVE JACKSONWNCLIA [id number] [place] [address] [place] US KIDNEY/BLADDERon 09-27-19 25 US KIDNEY/BLADDER * * *Final Report* * * DATE OF EXAM: Sep 26 2024 2:19PM [facility] 1055 - US KIDNEY/BLADDER / PROCEDURE REASON: [...] Normal sonographic appearance. IMPRESSION: Right renal cysts. Stringing Machine Operator: STEPAN Transcribe Date/Time: Sep 29 2024 8:00P Dictated by : ANDI COELHO MD This examination was interpreted and the report reviewed and electronically signed by: ANDI COELHO MD on Sep 29 2024 8:01PM EST [id number] Normal [facility] BACTERIAL CULTURE, URINEOrde red By: Nathaniel Henriquez on 09-20-2024 Bacteria identified Cx Nom (U) No growth (<1,000 CFU/ml) [facility] Bacteria identified Cx Nom ( U)Ordered By: Nathaniel Henriquez on 09-20-2024 Interpretation and review of laboratory results Normal [facility] 29on 09-19-2024 29 Addended by: BASIM JOEL on: 09/23/2024 01:57 PM Modules accepted: Orders Normal [facility] BLADDER SCANon 09-19-2024 PVR 66 Cc [facility] Bacteria Ur Culton 5 Bacteria identified Cx Nom (U) CULTURE, URINE: No growth (<1,000 CFU/ml) Normal [facility] Comment on above: Performed By: #### 6 30-4 #### [facility] CLIA [id number] [address] STATES OF [facility] CNOVon 09-19-2024 CNOV Office Visit (UROLAE ) -------- LINDA PERALTA ([id number]) 1945 F Date Time Provider Department 09/19/24 11:00 AM ARELIS SMITH During your visit today, we recorded the following information about you: Blood pressure Weight Height 124/76 70.3 kg 1.575 m Arelis Smith APRN.DESIGN ENGINEER [employer]ODUCTS 09/20/2024 1:00 PM Signed [facility] [place] [facility] - [place] UROL [place] EXCHANGE NEW PATIENT UROLOGY VISIT 09/19/2024 10:34 AM PATIENT NAME: Linda Peralta DATE OF : 1945 TODAY'S DATE: 09/19/2024 Referring Provider: Rocio Elizalde [address] [facility] [address] Referring Note Reviewed: Yes Chief Complaint: recurrent [...] diarrhea, renal insufficiency. (): seen by Dr. Reyes, ongoing nausea, vomiting, diarrhea, treated with steroids [...] Non STEMI. Cardiac cath normal. 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 Normal [facility] Jayce 09-19-2024 ELLIE Telephone (UROLAE) -------- LINDA PERALTA ([id number]) 1945 F Date Time Provider Department 09/19/24 [...] Date Reviewed: 09/19/2024 Reviewed by: Arelis Smith APRN.TELLY - Fully Assessed Reason for Visit: Consult [...] disease) [I25.10] 04/25/2009 DVT (deep venous thrombosis) ([facility]) [I82.409] 03/23/2012 01/23/2024 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 [...] Encounter Status:Closed by SINDI ANGELES on 09/23/24 Normal [facility] CT ANGIOGRAM TAVRon 09-20-19 CT ANGIOGRAM TAVR [facility] 1945 [id number] Exam Date/Time: 09/19/2024 12:47 Procedure: CT ANGIOGRAM [...] 09/19/2024 11:00 PM EDT --------ORIGINAL REPORT -------- [facility] Cardiovascular CTA Indication: 79 year-old woman with severe aortic stenosis, being evaluated for transcatheter aortic valve implantation. Technique: Computed tomography of the heart, thoracoabdominal aorta, and iliofemoral system was performed using a [employer] Aquilion One 320 detector scanner. Images were [...] the calcified. Predicted deployment angle (3-cusp view): BELIZEAN 16, STAFF INTERNIST OFFICE BASED ONLY 3 Aortic Annulus: Dimensions: 2.56 x 1.98 [...] EDT Patient Name: LIN[facility]ALTA : 1945 [id number] Exam Date/Time: 09/19/2024 12:47 Procedure: CT ANGIOGRAM TAVR Ordering Provider: GUPTA MEGGAN Reason For Exam: Aortic valve replacement (TAVR), pre-op eval [facility] Cardiovascular CTA Indication: 79 year-old woman with severe aortic stenosis, being evaluated for transcatheter aortic valve implantation. Technique: Computed tomography of the heart, thoracoabdominal aorta, and iliofemoral system was performed using a [employer] Aquilion One 320 detector scanner. Images were [...] normal in (more content not included)... Normal [facility] CT Chest WO and CT angiogram Coronary arteries W contrast Lizzy 09-19-2024 Addendum by Nixon Abarca DO on 09/19/2024 11:00 PM EDT Patient Name: LINDA [facility]ALTA : 1945 [id number] Exam Date/Time: 09/19/2024 12:47 Procedure: CT ANGIOGRAM [...] 09/19/2024 11:00 PM EDT --------ORIGINAL REPORT -------- [facility] Cardiovascular CTA Indication: 79 year-old woman with severe aortic stenosis, being evaluated for transcatheter aortic valve implantation. Technique: Computed tomography of the heart, thoracoabdominal aorta, and iliofemoral system was performed using a [employer] Aquilion One 320 detector scanner. Images were [...] the calcified. Predicted deployment angle (3-cusp view): BELIZEAN 16, STAFF INTERNIST OFFICE BASED ONLY 3 Aortic Annulus: Dimensions: 2.56 x 1.98 [...] Electronically Signed Date/Time: 09/19/2024 4:29 PM EDT [facility] Patient Name: LINDA TEJADA : 1945 [id number] Exam Date/Time: 09/19/2024 12:47 Procedure: CT ANGIOGRAM TAVR Ordering Provider: GUPTA MEGGAN Reason For Exam: Aortic valve replacement (TAVR), pre-op eval [facility] Cardiovascular CTA Indication: 79 year-old woman with severe aortic stenosis, being evaluated for transcatheter aortic valve implantation. Technique: Computed tomography of the heart, thoracoabdominal aorta, and iliofemoral system was performed using a [employer] Aquilion One 320 detector scanner. Images were [...] the calcified. Predicted deployment angle (3-cusp view): BELIZEAN 16, STAFF INTERNIST OFFICE BASED ONLY 3 Aortic Annulus: Dimensions: 2.56 x 1.98 [...] MD Electronically Signed Date/Time: 09/19/2024 4:29 PM [facility] Ben Elias MD / Nixon Jones DO - 09/19/2024 Patient Name: LINDA [facility]ALTA : 1945 [id number] Exam Date/Time: 09/19/2024 12:47 Procedure: CT ANGIOGRAM TAVR Ordering Provider: GUPTA MEGGAN Reason For Exam: Aortic valve replacement (TAVR), pre-op eval [facility] Cardiovascular CTA Indication: 79 year-old woman with severe aortic stenosis, being evaluated for transcatheter aortic valve implantation. Technique: Computed tomography of the heart, thoracoabdominal aorta, and iliofemoral system was performed using a [employer] Aquilion One 320 detector scanner. Images were [...] the calcified. Predicted deployment angle (3-cusp view): BELIZEAN 16, STAFF INTERNIST OFFICE BASED ONLY 3 Aortic Annulus: Dimensions: 2.56 x 1.98 [...] above. Report Dictated on Electronically Signed By: Bne Elias MD Electronically Signed Date/Time: 09/19/2024 4:29 PM EDT [facility] Study observation (narrative) [facility] CT Chest WO and CT angiogram Coronary arteries W contrast IVOrdered By: Ben Elias on 09-19-2024 [facility] Work Phone: Office Visiton 09-19-2024 Follow-up visit [id number] Ingris Peralta 1945 F Date Provider Department Center 09/19/2024 52462-SPXGCOBASIM JOEL [facility] SHMGC[facility] [address] Family History Problem Relation Age of Onset Heart attack Mother Stroke Father Family Status - Relation Status Age at Mother Father Level of Service:74362 RI OFFICE/OUTPATIENT ESTABLISHED MOD MDM 30 MIN Reason for Visit and Comments: Cardiac Valve Problem [1334] Normal [facility] Progress Noteon 09-19-2024 Progress Note [facility] [place] [address] [place] [address] Dept: [phone] Dept Visit type: Established : 1945 Reason [...] Dr. Gaffney- vascular. Will reach out to [facility] for bridging recommendation 3. Acute systolic [...] a PMH for CAD, HPL, DVT, PE, [place]'s disease, CKD s/p left nephrectomy (donated) and [...] dyspnea with moderate activity. No CAD per [facility]. Weight 156 lbs. Last clinic visit [...] done/ordered within my specialty: EKG in office: SRSHERLEY Review of tests/labs done/ordered outside my specialty: Independent interpretation of tests: Basim Joel, MANAGER TRACK - DESIGN ENGINEER PRODUCTS [1] Allergies Allergen Reactions Amlodipine Swelling Ciprofloxacin [...] Rfl: m (more content not included)... Normal [facility] UA DIP, URINE (POC)on 2024 BILIRUBIN UA (POCT) Negative Negative [facility] CLARITY UA (POCT) Clear [facility] COLOR UA (POCT) Yellow [facility] GLUCOSE UA (POCT) Negative Negative mg/dL [facility] Hemoglobin Ql (U) Negative Negative [facility] Interpretation and review of laboratory results Abnormal [facility] KETONE UA (POCT) Negative Negative mg/dL [facility] LEUKOCYTES UA (POCT) Small Abnormal Negative [facility] NITRITE UA (POCT) Negative Negative [facility] PH UA (POCT) 6 4.5 - 8.0 [facility] Protein Ql (U) Negative Negative mg/dL [facility] SPECIFIC GRAVITY UA (POCT) 1.01 1.005 - 1.030 [facility] UROBILINOGEN UA (POCT) 0.2 Camelia l E.U./dL [facility] Location:[facility], [address] [place] [address], [address] [place] [address] POINT OF CARE [facility] 09-12-2024 CNPN Telephone (INTMWS) -------- LINDA PERALTA ([id number]) 1945 F Date Time Provider Department 09/12/24 [...] [N39.0] Order(s):CONSULT TO UROLOGY [9041] Order #: [id number]: [id number] FUTURE Prescriptions as of 09/19/2024 - [...] disease) [I25.10] 04/25/2009 DVT (deep venous thrombosis) ([facility]) [I82.409] 03/23/2012 01/23/2024 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 [...] Status:Closed by AMA DIAZ on 09/19/24 Normal [facility] Absolute lymphocyte counton 09-10-2024 Lymphocytes Auto (Unsp spec) [#/Vol] 2.14 10*3/uL 0.83-4.51 [facility] Absolute neutrophil counton 09-10-2024 Neutrophils (Bld) [#/Vol] 5.9 10*3/uL 2.0-7.7 [facility] Anion gap in Serum or Plasma on 09-10-2024 Anion gap [Moles/Vol] 13 mmol/L 5-15 [facility] Automated lymphocyte count a s percentage of total leukocyteson 09-10-2024 Lymphocytes/100 WBC Auto (Unsp spec) 22.3 % 19-41 [facility] BUN/creatinine ratioon 09-10 Urea nitrogen/Creatinine [Mass ratio] 19.7 mg/mg 10- [facility] Basic Metabolic Profile (BMP )on 09-10-2024 BUN/CRE 19.7 RATIO Normal - [facility] Comment on above: Performed By: #### L 100.0100, L500.2500 ####[facility] [address] [place], [address] Calcium [Mass/Vol] 9.5 mg/dL Normal 7.6-11.0 [facility] Comment on above: Performed By: #### L 100.0100, L500.2500 ####[facility] [address] [place], [address] Chloride [Moles/Vol] 108 mmol/L Normal 98-108 [facility] Comment on above: Performed By: #### L 100.0100, L500.2500 ####[facility] [address] [place], [address] CO2 [Moles/Vol] 21.8 mmol/L Normal 21.0-32.0 [facility] Comment on above: Performed By: #### L 100.0100, L500.2500 ####[facility] [address] [place], [address] Creatinine [Mass/Vol] 1.39 mg/dL High 0.70-1.20 [facility] Comment on above: Performed By: #### L 100.0100, L500.2500 ####[facility] [address] [place], [address] GAP 13 Normal 5-15 [facility] Comment on above: Performed By: #### L 100.0100, L500.2500 ####[facility] [address] [place], [address] GFR/1.73 sq M.predicted among non-blacks MDRD (S/P/Bld) [Vol rate/Area] 38 mL/min/{1.73_m2} Low >60 [facility] Comment on above: Result Comment: mL/m in/1.73m2 CKD-EPI Creatinine Equation (2020) Performed By: #### L 100.0100, L500.2500 ####[facility] [address] [place], [address] Glucose [Mass/Vol] 76 mg/dL Normal 70-99 [facility] Comment on above: Performed By: #### L 100.0100, L500.2500 ####[facility] [address] [place], [address] Potassium [Moles/Vol] 4.6 mmol/L Normal 3.3-5.1 [facility] Comment on above: Result Comment: Hemo lysis present, Results??could be affected.?? Performed By: #### L 100.0100, L500.2500 ####[facility] [address] [place], [address] Sodium [Moles/Vol] 142 mmol/L Normal 133-145 [facility] Comment on above: Performed By: #### L 100.0100, L500.2500 ####[facility] [address] [place], [address] Urea nitrogen [Mass/Vol] 27 mg/dL High 4-19 [facility] Comment on above: Performed By: #### L 100.0100, L500.2500 ####[facility] [address] [place], [address] Basophil percentageon 09-10- 2024 Basophils/100 WBC (Bld) 0.6 % 0-1 [facility] CBC W/Diff, Automatedon 08-21 Absolute Lymph 2.14 X10 3/uL Normal 0.83-4.51 [facility] Comment on above: Performed By: #### L 100.0100, L500.2500 ####[facility] [address] [place], [address] Absolute Neut 5.9 X10 3/uL Normal 2.0-7.7 [facility] Comment on above: Performed By: #### L 100.0100, L500.2500 ####[facility] [address] [place], [address] Basophils/100 WBC (Bld) 0.6 % Normal 0-1 [facility] Comment on above: Performed By: #### L 100.0100, L500.2500 ####[facility] [address] [place], [address] Eosinophils/100 WBC (Bld) 4.5 % Normal 0-5 [facility] Comment on above: Performed By: #### L 100.0100, L500.2500 ####[facility] [address] [place], [address] Erythrocyte distribution width (RBC) [Ratio] 16.3 % High 11.6-14.6 [facility] Comment on above: Performed By: #### L 100.0100, L500.2500 ####[facility] [address] [place], [address] Hematocrit (Bld) [Volume fraction] 42.7 % Normal 37-47 [facility] Comment on above: Performed By: #### L 100.0100, L500.2500 ####[facility] [address] [place], [address] Hemoglobin (Bld) [Mass/Vol] 13.7 g/dL Normal 12.0-15.0 [facility] Comment on above: Performed By: #### L 100.0100, L500.2500 ####[facility] [address] [place], [address] IG% 1.800 High 0.0-0.9 [facility] Comment on above: Result Comment: IG% - Immature Granulocytes (promyelocytes, myelocytes andmetamyelocytes) > 1% indicates that a LEFT SHIFT is Present. Performed By: #### L 100.0100, L500.2500 ####[facility] [address] [place], [address] Lymphocytes/100 WBC (Bld) 22.3 % Normal 19-41 [facility] Comment on above: Performed By: #### L 100.0100, L500.2500 ####[facility] [address] [place], [address] MCH (RBC) [Entitic mass] 30.5 pg Normal 27.0-32.0 [facility] Comment on above: Performed By: #### L 100.0100, L500.2500 ####[facility] [address] [place], [address] MCHC (RBC) [Mass/Vol] 32.1 g/dL Normal 32-36 [facility] Comment on above: Performed By: #### L 100.0100, L500.2500 ####[facility] [address] [place], [address] MCV (RBC) [Entitic vol] 95.1 fL Normal 81-99 [facility] Comment on above: Performed By: #### L 100.0100, L500.2500 ####[facility] [address] [place], [address] Monocytes/100 WBC (Bld) 9.1 % Normal 0-10 [facility] Comment on above: Performed By: #### L 100.0100, L500.2500 ####[facility] [address] [place], [address] Neutrophils/100 WBC (Bld) 61.7 % Normal 47-70 [facility] Comment on above: Performed By: #### L 100.0100, L500.2500 ####[facility] [address] [place], [address] Nucleated RBC (Bld) [#/Vol] 0 10*3/uL Normal 0-5 [facility] Comment on above: Performed By: #### L 100.0100, L500.2500 ####[facility] [address] [place], [address] Platelet mean volume (Bld) [Entitic vol] 11.6 fL Normal 6.2-12.0 [facility] Comment on above: Performed By: #### L 100.0100, L500.2500 ####[facility] [address] [place], [address] Platelets (Bld) [#/Vol] 234 10*3/uL Normal 150-450 [facility] Comment on above: Performed By: #### L 100.0100, L500.2500 ####[facility] [address] [place], [address] RBC (Bld) [#/Vol] 4.49 10*6/uL Normal 4.2-5.4 [facility] Comment on above: Performed By: #### L 100.0100, L500.2500 ####[facility] [address] [place], [address] RDW SD 57.0 fl High 35.1-43.9 [facility] Comment on above: Performed By: #### L 100.0100, L500.2500 ####[facility] [address] [place], [address] WBC (Bld) [#/Vol] 9.6 10*3/uL Normal 4.4-11.0 [facility] Comment on above: Performed By: #### L 100.0100, L500.2500 ####[facility] [address] [place], [address] Carbon dioxide, total [Moles /volume] in Central venous bloodon 09-10-2024 CO2 [Moles/Vol] 21.8 mmol/L 21.0-32.0 [facility] Chloride assayon 09-10-2024 Chloride [Moles/Vol] 108 mmol/L 98-108 [facility] Eosinophil percentageon 08-21 Eosinophils/100 WBC (Bld) 4.5 % 0-5 [facility] Erythrocyte distribution wid th ratioon 09-10-2024 Erythrocyte distribution width (RBC) [Ratio] 16.3 % High 11.6-14.6 [facility] Erythrocyte distribution wid th standard deviationon 09-10-2024 Erythrocyte distribution width (RBC) [Ratio] 57.0 fl High 35.1-43.9 [facility] Glomerular filtration rate ( GFR) estimation/1.73 sq m using serum, plasma, or whole bon 09-10-2024 GFR/1.73 sq M.predicted among non-blacks MDRD (S/P/Bld) [Vol rate/Area] 38 mL/min/{1.73_m2} Low >60 [facility] Comment on above: mL/min/1.73m2 CKD-EP I Creatinine Equation (2020) Hematocrit Auto (Bld) [Volum e fraction]on 09-10-2024 Hematocrit (Bld) [Volume fraction] 42.7 % 37-47 [facility] Hemoglobin measurementon Hemoglobin (Bld) [Mass/Vol] 13.7 g/dL 12.0-15.0 [facility] Immature granulocytes/100 WB C Auto (Bld)on 09-10-2024 Immature granulocytes/100 WBC (Bld) 1.800 % High 0.0-0.9 [facility] Comment on above: IG% - Immature Granu locytes (promyelocytes, myelocytes and metamyelocytes) > 1% indicates that a LEFT SHIFT is Present. MCV (mean corpuscular volume ) determinationon 09-10-2024 MCV (RBC) [Entitic vol] 95.1 fL 81-99 [facility] Mean corpuscular hemoglobin (MCH) determinationon 09-10-2024 MCH (RBC) [Entitic mass] 30.5 pg 27.0-32.0 [facility] Mean corpuscular hemoglobin concentration (MCHC) determinationon 09-10-2024 MCHC (RBC) [Mass/Vol] 32.1 g/dL 32-36 [facility] Mean platelet volume determi nationon 09-10-2024 Platelet mean volume (Bld) [Entitic vol] 11.6 fL 6.2-12.0 [facility] Monocyte percentageon 2024 Monocytes/100 WBC (Bld) 9.1 % 0-10 [facility] Neutrophil percentageon 08-21 Neutrophils/100 WBC (Bld) 61.7 % 47-70 [facility] Nucleated red blood cell per centageon 09-10-2024 Nucleated RBC/100 WBC (Bld) [Ratio] 0 % 0-5 [facility] Platelet counton 09-10-2024 Platelets (Bld) [#/Vol] 234 10*3/uL 150-450 [facility] Potassium measurement (mass/ volume)on 09-10-2024 Potassium (Unsp spec) [Mass/Vol] 4.6 mmol/L 3.3-5.1 [facility] Comment on above: Hemolysis present, R esults could be affected. RBC Auto (Bld) [#/Vol]on RBC (Bld) [#/Vol] 4.49 10*6/uL 4.2-5.4 [facility] Serum creatinine measurement (mass/volume)on 09-10-2024 Creatinine [Mass/Vol] 1.39 mg/dL High 0.70-1.20 [facility] Serum glucose measurement (m ass/volume)on 09-10-2024 Glucose [Mass/Vol] 76 mg/dL 70-99 [facility] Serum or plasma calcium scott urement (mass/volume)on 09-10-2024 Calcium [Mass/Vol] 9.5 mg/dL 7.6-11.0 [facility] Serum or plasma urea nitroge n measurement (mass/volume)on 09-10-2024 Urea nitrogen [Mass/Vol] 27 mg/dL High 4-19 [facility] Sodium levelon 09-10-2024 Sodium [Moles/Vol] 142 mmol/L 133-145 [facility] White blood cell (WBC) count on 09-10-2024 WBC (Bld) [#/Vol] 9.6 10*3/uL 4.4-11.0 [facility] Office Visiton 09-03-2024 Follow-up visit [id number] Ingris Peralta 1945 Provider Department Center 09/03/2024 [id number] DE LA CRUZ [facility] [address] Ar Family History Problem Relation Age of Onset Heart attack Mother Stroke Father Family Status - Relation Status Age at Mother Father Level of Service:34202 RI OFFICE/OP CONSLTJ NEW/EST PT HIGH MDM 55 MINUTES Reason for Visit and Comments: New Patient [542] Cardiac Valve Problem [1334] - Heart valve clinic [facility] Follow-up visit [id number] Ingris Peralta 1945 Date Provider Department Center 09/03/2024 [id number] CANAS [facility] 95 Ar Family History Problem Relation Age of Onset Heart attack Mother Stroke Father Family Status - Relation Status Age at Mother Father Level of Service:12003 RI OFFICE/OUTPATIENT ESTABLISHED HIGH MDM 40 MIN Reason for Visit and Comments: New Patient [542] Cardiac Valve Problem [1334] - Heart valve clinic [facility] Progress Noteon 09-03-2024 Progress Note [facility]: Cardiothoracic Surgery Multidisciplinary Heart Valve Clinic Date: 09/03/24 Patient:Linda Peralta 1945 79 y.o. female [id number] Subjective: HPI: Linda Peralta 79 [address] Marte is being evaluated for aortic valve stenosis. Echocardiogram completed on 07/03/24 showed moderate to severe aortic valve stenosis with mean gradient 39 mm Hg. Per note, patient with past medical history significant for STEMI 2009, HLD, DVT, PE, [place]'s Disease, CKD, s/p left nephrectomy and right partial nephrectomy, mitral valve prolapse, and aortic valve stenosis. Pt underwent TOMI on 07/03/24 which demonstrated LVEF 45%, 1-2+ [place], stage 1 diastolic dysfunction, moderately severe aortic [...] were no vitals taken for this visit. @[id number]@ Physical Exam Constitutional: Appearance: Normal appearance. HENT: [...] neck supple (more content not included)... [facility] [place] [address] [facility] [id number] Dept: [phone] Dept Visit type: New : 1945 Reason [...] proceeding with TAVR. We will contact her glue bone crusher for recommendations about steroid dosing around the [...] LVEFPHYS, LVEF (more content not included)... Normal [facility] Progress Noteon 08-30-2024 Progress Note Hermes Peralta 79 y [address] referred by Dr. Marte is being evaluated for aortic valve stenosis. Echocardiogram completed on 07/03/24 showed moderate to severe aortic valve stenosis with mean gradient 39 mm Hg. Per note, patient with past medical history significant for STEMI 2010, HLD, DVT, PE, Moris's Disease, CKD, s/p left nephrectomy and right partial nephrectomy, mitral valve prolapse, and aortic valve stenosis. Pt underwent TOMI on 07/03/24 which demonstrated LVEF 45%, 1-2+ [place], stage 1 diastolic dysfunction, moderately severe aortic valve stenosis with mean gradient 39 mmHg. Pt underwent heart catheterization 08/05/24 which demonstrated normal coronary arteries and moderate to severe aortic valve stenosis with recommendation for TAVR and/or CTS consult for AVR and MVR. Medical History[1] Blood thinner - warfarin Cardiac Catheterization 08/05/24 Transesophageal Echocardiogram 07/03/24 [1] No past medical history on file. Normal [facility] Bacteria Ur Culton 5 Bacteria identified Cx Nom (U) ORGANISM ID: 1 50,000-<100,000 CFU/ml Streptococcus anginosus No susceptibility testing done. Normal [facility] Comment on above: Performed By: #### 6 30-4 ####[facility] LABCLIA [id number] [address] [place] CNOVon 07-10-2025 CNOV Office Visit (INTMWS ) -------- LINDA PERALTA ([id number]) 1945 F Date Time Provider Department 08/29/24 10:40 AM AMOS FLOYD INTMWS During your visit today, we recorded the following information about you: Pulse Respiration Blood pressure Weight 71/minute 20/minute 135/83 71.4 kg Amos Floyd MD 08/29/2024 11:26 AM Signed This note was created using CloudFloor. Subjective Linda Peralta is a 79 year old female here with daughter. She was doing better. Blood pressure was elevating now. Her glue bone crusher, Dr. Gregory, did not need to call in a medication to raise her blood pressure. Edema was improving. Dysuria resolved. She was scheduled to see cardiac surgeons in [facility] next week for possible TAVR. Review [...] I35.0 - To see cardiac surgery in [facility]. 6. Thyroid nodule greater than or equal to 1 cm in diameter incidentally noted on imaging study, right side. - ICD9: 241.0, ICD10: E04.1 - We reviewed this. Dr. Gregory palpated her thyroid and was aware. He recommended monitori (more content not included)... Normal [facility] UA DIP, URINE (POC)on 2024 BILIRUBIN UA (POCT) Negative Negative [facility] CLARITY UA (POCT) Clear [facility] COLOR UA (POCT) Yellow [facility] GLUCOSE UA (POCT) Negative Negative mg/dL [facility] Hemoglobin Ql (U) Negative Negative [facility] Interpretation and review of laboratory results Abnormal [facility] KETONE UA (POCT) Negative Negative mg/dL [facility] LEUKOCYTES UA (POCT) Small Abnormal Negative [facility] NITRITE UA (POCT) Negative Negative [facility] PH UA (POCT) 6.5 4.5 - 8.0 [facility] Protein Ql (U) 30 mg/dL Abnormal Negative [facility] SPECIFIC GRAVITY UA (POCT) 1.02 1.005 - 1.030 [facility] UROBILINOGEN UA (POCT) 0.2 Camelia l E.U./dL [facility] Location:[address], [place], [place], [address] [place] [address] POINT OF CARE [facility] CNPNon 08-19-2024 CNPN Telephone (INTMWS) -------- LINDA PERALTA ([id number]) 1945 F Date Time Provider Department 08/19/24 [...] order another antibiotic? Please advise daughter Souleymane [phone]. Amos Floyd MD 08/19/2024 5:46 PM Signed [...] [Z86.0100] 03/10 (more content not included)... Normal [facility] 36on 08-16-2024 36 Mailed INSOLE T[employer] STITCHER UCO packet and made chart Normal [facility] Bacteria Ur Culton 5 Bacteria identified [...] , Intermediate >32 , Resistant >64 Abnormal [facility] Comment on above: Performed By: #### 6 30-4 ####[facility] LABCLIA [id number] [address] OF [facility] CNOVon 08-14-2024 CNOV Office Visit (INTMWS ) -------- LINDA PERALTA ([id number]) 1945 F Date Time Provider Department 08/14/24 11:20 AM AMOS FLOYD INTMWS During your visit today, we recorded the following information about you: Temperature Pulse Respiration Blood pressure 98.2 degrees 88/minute 18/minute 98/64 Weight 71.2 kg Amos Floyd MD 08/15/2024 7:19 AM Signed This note was created using SponsorHubriter. Subjective Patient presents with: Hospital F/U Linda Peralta is a 79 year old female here with her daughter. She had a heart catheterization 08/05/24 showing minimal CAD and severe . She was being referred for TAVR to a specialist in [facility]. She developed weakness 08/07/24 and was found to be bradycardic and hypotensive. She was admitted with concerns for UTI, urosepsis, non STEMI, and [place]'s. She was treated with IV fluids, antibiotic for Klebsiella aerogenes UTI, and IV hydrocortisone. She was noted to have edema and found to have acute DVT, in the setting of recent holding of residential warfarin for the heart cath. She was [...] present. Neurolo (more content not included)... Normal [facility] UA DIP, URINE (POC)on 2024 BILIRUBIN UA (POCT) Negative Negative [facility] CLARITY UA (POCT) Clear [facility] COLOR UA (POCT) Yellow [facility] GLUCOSE UA (POCT) Negative Negative mg/dL [facility] Hemoglobin Ql (U) Negative Negative [facility] Interpretation and review of laboratory results Abnormal [facility] KETONE UA (POCT) Negative Negative mg/dL [facility] LEUKOCYTES UA (POCT) Trace Abnormal Negative [facility] NITRITE UA (POCT) Negative Negative [facility] PH UA (POCT) 6 4.5 - 8.0 [facility] Protein Ql (U) 30 mg/dL Abnormal Negative [facility] SPECIFIC GRAVITY UA (POCT) 1.02 1.005 - 1.030 [facility] UROBILINOGEN UA (POCT) 0.2 Camelia l E.U./dL [facility] Location:[facility] [place], [address], [place], [address] [facility] POINT OF CARE [facility] 36on 08-13-2024 36 Patient sched in [place] 09/03/24 w/ PB/EE. I need to make chart and mail [employer] UCO packet. Normal [facility] Culture, Blood (WB)on 2024 CUB Blood cultures x2, f rom two different sites No growth in 5 days. Normal [facility] Comment on above: Performed By: #### L 501.4021, M200.1000 ####[facility] [address] [place], [address] Performed By: #### M 200.1000 ####[facility] [address] [place], [address] Absolute lymphocyte countOrd ered By: Ted Toro on 08-09-2024 Lymphocytes Auto (Unsp spec) [#/Vol] 0.85 10*3/uL 0.83-4.51 [facility] Absolute neutrophil countOrd ered By: Ted Toro on 08-09-2024 Neutrophils (Bld) [#/Vol] 9.3 10*3/uL High 2.0-7.7 [facility] Anion gap in Serum or Plasma Ordered By: Ted Toro on 08-09-2024 Anion gap [Moles/Vol] 11 mmol/L - [facility] Automated lymphocyte count a s percentage of total leukocytesOrdered By: Ted Toro on 08-09-2024 Lymphocytes/100 WBC Auto (Unsp spec) 7.4 % Low - [facility] BUN/creatinine ratioOrdered By: Ted Toro on 08-09-2024 Urea nitrogen/Creatinine [Mass ratio] 30.7 mg/mg High 12-09 [facility] Basic Metabolic Profile (BMP )on 08-09-2024 BUN/CRE 30.7 RATIO High 10-20 [facility] Comment on above: Performed By: #### L 500.2500, L100.0100 ####[facility] [address] [place], [address] Calcium [Mass/Vol] 8.5 mg/dL Normal 7.6-11.0 [facility] Comment on above: Performed By: #### L 500.2500, L100.0100 ####[facility] [address] [place], [address] Chloride [Moles/Vol] 111 mmol/L High 98-108 [facility] Comment on above: Performed By: #### L 500.2500, L100.0100 ####[facility] [address] [place], [address] CO2 [Moles/Vol] 15.0 mmol/L Low 21.0-32.0 [facility] Comment on above: Performed By: #### L 500.2500, L100.0100 ####[facility] [address] [place], [address] Creatinine [Mass/Vol] 1.35 mg/dL High 0.70-1.20 [facility] Comment on above: Performed By: #### L 500.2500, L100.0100 ####[facility] [address] [place], [address] ECRCL 30.53 ml/min Low 50-250 [facility] Comment on above: Performed By: #### L 500.2500, L100.0100 ####[facility] [address] [place], [address] GAP 11 Normal 5-15 [facility] Comment on above: Performed By: #### L 500.2500, L100.0100 ####[facility] [address] [place], [address] GFR/1.73 sq M.predicted among non-blacks MDRD (S/P/Bld) [Vol rate/Area] 39 mL/min/{1.73_m2} Low >60 [facility] Comment on above: Result Comment: mL/m in/1.73m2 CKD-EPI Creatinine Equation (2020) Performed By: #### L 500.2500, L100.0100 ####[facility] [address] [place], [address] Glucose [Mass/Vol] 145 mg/dL High 70-99 [facility] Comment on above: Performed By: #### L 500.2500, L100.0100 ####[facility] [address] [place], [address] Potassium [Moles/Vol] 4.9 mmol/L Normal 3.3-5.1 [facility] Comment on above: Performed By: #### L 500.2500, L100.0100 ####[facility] [address] [place], [address] Sodium [Moles/Vol] 137 mmol/L Normal 133-145 [facility] Comment on above: Performed By: #### L 500.2500, L100.0100 ####[facility] [address] [place], [address] Urea nitrogen [Mass/Vol] 41 mg/dL High 4-19 [facility] Comment on above: Performed By: #### L 500.2500, L100.0100 ####[facility] [address] [place], [address] Basophil percentageOrdered B y: Ted Toro on 08-09-2024 Basophils/100 WBC (Bld) 0.3 % 0-1 [facility] CBC W/Diff, Automatedon 07-22 Absolute Lymph 0.85 X10 3/uL Normal 0.83-4.51 [facility] Comment on above: Performed By: #### L 500.2500, L100.0100 ####[facility] [address] [place], [address] Absolute Neut 9.3 X10 3/uL High 2.0-7.7 [facility] Comment on above: Performed By: #### L 500.2500, L100.0100 ####[facility] [address] [place], [address] Basophils/100 WBC (Bld) 0.3 % Normal 0-1 [facility] Comment on above: Performed By: #### L 500.2500, L100.0100 ####[facility] [address] [place], [address] Eosinophils/100 WBC (Bld) 0.2 % Normal 0-5 [facility] Comment on above: Performed By: #### L 500.2500, L100.0100 ####[facility] [address] [place], [address] Erythrocyte distribution width (RBC) [Ratio] 15.9 % High 11.6-14.6 [facility] Comment on above: Performed By: #### L 500.2500, L100.0100 ####[facility] [address] [place], [address] Hematocrit (Bld) [Volume fraction] 40.4 % Normal 37-47 [facility] Comment on above: Performed By: #### L 500.2500, L100.0100 ####[facility] [address] [place], [address] Hemoglobin (Bld) [Mass/Vol] 13.3 g/dL Normal 12.0-15.0 [facility] Comment on above: Performed By: #### L 500.2500, L100.0100 ####[facility] [address] [place], [address] IG% 1.600 High 0.0-0.9 [facility] Comment on above: Result Comment: IG% - Immature Granulocytes (promyelocytes, myelocytes andmetamyelocytes) > 1% indicates that a LEFT SHIFT is Present. Performed By: #### L 500.2500, L100.0100 ####[facility] [address] [place], [address] Lymphocytes/100 WBC (Bld) 7.4 % Low 19-41 [facility] Comment on above: Performed By: #### L 500.2500, L100.0100 ####[facility] [address] [place], [address] MCH (RBC) [Entitic mass] 30.1 pg Normal 27.0-32.0 [facility] Comment on above: Performed By: #### L 500.2500, L100.0100 ####[facility] [address] [place], [address] MCHC (RBC) [Mass/Vol] 32.9 g/dL Normal 32-36 [facility] Comment on above: Performed By: #### L 500.2500, L100.0100 ####[facility] [address] [place], [address] MCV (RBC) [Entitic vol] 91.4 fL Normal 81-99 [facility] Comment on above: Performed By: #### L 500.2500, L100.0100 ####[facility] [address] [place], [address] Monocytes/100 WBC (Bld) 9.5 % Normal 0-10 [facility] Comment on above: Performed By: #### L 500.2500, L100.0100 ####[facility] [address] [place], [address] Neutrophils/100 WBC (Bld) 81.0 % High 47-70 [facility] Comment on above: Performed By: #### L 500.2500, L100.0100 ####[facility] [address] [place], [address] Nucleated RBC (Bld) [#/Vol] 0 10*3/uL Normal 0-5 [facility] Comment on above: Performed By: #### L 500.2500, L100.0100 ####[facility] [address] [place], [address] Platelet mean volume (Bld) [Entitic vol] 12.0 fL Normal 6.2-12.0 [facility] Comment on above: Performed By: #### L 500.2500, L100.0100 ####[facility] [address] [place], [address] Platelets (Bld) [#/Vol] 118 10*3/uL Low 150-450 [facility] Comment on above: Performed By: #### L 500.2500, L100.0100 ####[facility] [address] [place], [address] RBC (Bld) [#/Vol] 4.42 10*6/uL Normal 4.2-5.4 [facility] Comment on above: Performed By: #### L 500.2500, L100.0100 ####[facility] [address] [place], [address] RDW SD 53.7 fl High 35.1-43.9 [facility] Comment on above: Performed By: #### L 500.2500, L100.0100 ####[facility] [address] [place], [address] WBC (Bld) [#/Vol] 11.5 10*3/uL High 4.4-11.0 [facility] Comment on above: Performed By: #### L 500.2500, L100.0100 ####[facility] [address] [place], [address] Carbon dioxide, total [Moles /volume] in Central venous bloodOrdered By: Ted Toro on 08-09-2024 CO2 [Moles/Vol] 15.0 mmol/L Low 21.0-32.0 [facility] Chloride assayOrdered By: Deidre Toro on 08-09-2024 Chloride [Moles/Vol] 111 mmol/L High 98-108 [facility] Eosinophil percentageOrdered By: Ted Toro on 08-09-2024 Eosinophils/100 WBC (Bld) 0.2 % 0-5 [facility] Erythrocyte distribution wid th ratioOrdered By: Ted Toro on 08-09-2024 Erythrocyte distribution width (RBC) [Ratio] 15.9 % High 11.6-14.6 [facility] Erythrocyte distribution wid th standard deviationOrdered By: Ted Toro on 08-09-2024 Erythrocyte distribution width (RBC) [Ratio] 53.7 fl High 35.1-43.9 [facility] Glomerular filtration rate ( GFR) estimation/1.73 sq m using serum, plasma, or whole bOrdered By: Ted Troo on 08-09-2024 GFR/1.73 sq M.predicted among non-blacks MDRD (S/P/Bld) [Vol rate/Area] 39 mL/min/{1.73_m2} Low >60 [facility] Comment on above: mL/min/1.73m2 CKD-EP I Creatinine Equation (2020) Hematocrit Auto (Bld) [Volum e fraction]Ordered By: Ted Toro on 08-09-2024 Hematocrit (Bld) [Volume fraction] 40.4 % 37-47 [facility] Hemoglobin measurementOrdere d By: Ted Toro on 08-09-2024 Hemoglobin (Bld) [Mass/Vol] 13.3 g/dL 12.0-15.0 [facility] Immature granulocytes/100 WB C Auto (Bld)Ordered By: Ted Toro on 08-09-2024 Immature granulocytes/100 WBC (Bld) 1.600 % High 0.0-0.9 [facility] Comment on above: IG% - Immature Granu locytes (promyelocytes, myelocytes and metamyelocytes) > 1% indicates that a LEFT SHIFT is Present. MCV (mean corpuscular volume ) determinationOrdered By: Ted Toro on 08-09-2024 MCV (RBC) [Entitic vol] 91.4 fL 81-99 [facility] Mean corpuscular hemoglobin (MCH) determinationOrdered By: Ted Toro on 08-09-2024 MCH (RBC) [Entitic mass] 30.1 pg 27.0-32.0 [facility] Mean corpuscular hemoglobin concentration (MCHC) determinationOrdered By: Ted Toro on 08-09-2024 MCHC (RBC) [Mass/Vol] 32.9 g/dL 32-36 [facility] Mean platelet volume determi nationOrdered By: Ted Toro on 08-09-2024 Platelet mean volume (Bld) [Entitic vol] 12.0 fL 6.2-12.0 [facility] Monocyte percentageOrdered B y: Ted Toro on 08-09-2024 Monocytes/100 WBC (Bld) 9.5 % 0-10 [facility] Neutrophil percentageOrdered By: Ted Toro on 08-09-2024 Neutrophils/100 WBC (Bld) 81.0 % High 47-70 [facility] Nucleated red blood cell per centageOrdered By: Ted Toro on 08-09-2024 Nucleated RBC/100 WBC (Bld) [Ratio] 0 % 0-5 [facility] Platelet countOrdered By: Deidre Toro on 08-09-2024 Platelets (Bld) [#/Vol] 118 10*3/uL Low 150-450 [facility] Potassium measurement (mass/ volume)Ordered By: Ted Toro on 08-09-2024 Potassium (Unsp spec) [Mass/Vol] 4.9 mmol/L 3.3-5.1 [facility] RBC Auto (Bld) [#/Vol]Ordere d By: Ted Toro on 08-09-2024 RBC (Bld) [#/Vol] 4.42 10*6/uL 4.2-5.4 [facility] Serum creatinine measurement (mass/volume)Ordered By: Ted Toro on 08-09-2024 Creatinine [Mass/Vol] 1.35 mg/dL High 0.70-1.20 [facility] Serum glucose measurement (m ass/volume)Ordered By: Ted Toro on 08-09-2024 Glucose [Mass/Vol] 145 mg/dL High 70-99 [facility] Serum or plasma calcium scott urement (mass/volume)Ordered By: Ted Toro on 08-09-2024 Calcium [Mass/Vol] 8.5 mg/dL 7.6-11.0 [facility] Serum or plasma urea nitroge n measurement (mass/volume)Ordered By: Ted Toro on 08-09-2024 Urea nitrogen [Mass/Vol] 41 mg/dL High 4-19 [facility] Sodium levelOrdered By: Buddy Toro on 08-09-2024 Sodium [Moles/Vol] 137 mmol/L 133-145 [facility] Urine Cultureon 08-09-2024 URC Normal [facility] Comment on above: Performed By: #### M 100.2200, L400.0001 ####[facility] [address] [place], [address] White blood cell (WBC) count Ordered By: Ted Toro on 08-09-2024 WBC (Bld) [#/Vol] 11.5 10*3/uL High 4.4-11.0 [facility] Venous Duplex US - Spencer Extre mon 08-08-2024 Venous Duplex US - Spencer Extrem Normal [facility] 12 Lead EKGon 08-07-2024 12 Lead EKG Normal [facility] Abdomen/Pelvis without Conto n 08-07-2024 Abdomen/Pelvis without Cont Normal [facility] Absolute lymphocyte countOrd ered By: Obinna Frye on 08-07-2024 Lymphocytes Auto (Unsp spec) [#/Vol] 2.26 10*3/uL 0.83-4.51 [facility] Absolute neutrophil countOrd ered By: Obinna Frye on 08-07-2024 Neutrophils (Bld) [#/Vol] 10.8 10*3/uL High 2.0-7.7 [facility] Anion gap in Serum or Plasma Ordered By: Obinnamorales Frye on 08-07-2024 Anion gap [Moles/Vol] 15 mmol/L 5-15 [facility] Automated lymphocyte count a s percentage of total leukocytesOrdered By: Obinnamorales Molinao on 08-07-2024 Lymphocytes/100 WBC Auto (Unsp spec) 15.0 % Low 19-41 [facility] BUN/creatinine ratioOrdered By: [facility] on 08-07-2024 Urea nitrogen/Creatinine [Mass ratio] 27.3 mg/mg High 10-20 [facility] Basophil percentageOrdered B y: Obinnamorales Frye on 08-07-2024 Basophils/100 WBC (Bld) 0.9 % 0-1 [facility] Bilirubin Test strip Ql (U)O rdered By: Obinnamorales Molinao on 08-07-2024 Bilirubin Ql (U) Negative Negative [facility] Bilirubin, totalOrdered By: Obinnamorales Frye on 08-07-2024 Bilirubin [Mass/Vol] 0.52 mg/dL 0.00-1.30 [facility] Blood cultureOrdered By: Obinnamorales Molinao on 08-07-2024 Bacteria identified Cx Nom (Bld) No growth in 5 days. [facility] Bacteria identified Cx Nom (Bld) No growth in 5 days. [facility] CBC W/Diff, Automatedon 07-21 Absolute Lymph 2.26 X10 3/uL Normal 0.83-4.51 [facility] Comment on above: Performed By: #### L 100.0100, L500.4050 ####[facility] [address] [place], [address] Absolute Neut 10.8 X10 3/uL High 2.0-7.7 [facility] Comment on above: Performed By: #### L 100.0100, L500.4050 ####[facility] [address] [place], [address] Basophils/100 WBC (Bld) 0.9 % Normal 0-1 [facility] Comment on above: Performed By: #### L 100.0100, L500.4050 ####[facility] [address] [place], [address] Eosinophils/100 WBC (Bld) 1.1 % Normal 0-5 [facility] Comment on above: Performed By: #### L 100.0100, L500.4050 ####[facility] [address] [place], [address] Erythrocyte distribution width (RBC) [Ratio] 15.6 % High 11.6-14.6 [facility] Comment on above: Performed By: #### L 100.0100, L500.4050 ####[facility] [address] [place], [address] Hematocrit (Bld) [Volume fraction] 46.5 % Normal 37-47 [facility] Comment on above: Performed By: #### L 100.0100, L500.4050 ####[facility] [address] [place], [address] Hemoglobin (Bld) [Mass/Vol] 15.2 g/dL High 12.0-15.0 [facility] Comment on above: Performed By: #### L 100.0100, L500.4050 ####[facility] [address] [place], [address] IG% 1.600 High 0.0-0.9 [facility] Comment on above: Result Comment: IG% - Immature Granulocytes (promyelocytes, myelocytes andmetamyelocytes) > 1% indicates that a LEFT SHIFT is Present. Performed By: #### L 100.0100, L500.4050 ####[facility] [address] [place], [address] Lymphocytes/100 WBC (Bld) 15.0 % Low 19-41 [facility] Comment on above: Performed By: #### L 100.0100, L500.4050 ####[facility] [address] [place], [address] MCH (RBC) [Entitic mass] 29.7 pg Normal 27.0-32.0 [facility] Comment on above: Performed By: #### L 100.0100, L500.4050 ####[facility] [address] [place], [address] MCHC (RBC) [Mass/Vol] 32.7 g/dL Normal 32-36 [facility] Comment on above: Performed By: #### L 100.0100, L500.4050 ####[facility] [address] [place], [address] MCV (RBC) [Entitic vol] 91.0 fL Normal 81-99 [facility] Comment on above: Performed By: #### L 100.0100, L500.4050 ####[facility] [address] [place], [address] Monocytes/100 WBC (Bld) 9.7 % Normal 0-10 [facility] Comment on above: Performed By: #### L 100.0100, L500.4050 ####[facility] [address] [place], [address] Neutrophils/100 WBC (Bld) 71.7 % High 47-70 [facility] Comment on above: Performed By: #### L 100.0100, L500.4050 ####[facility] [address] [place], [address] Nucleated RBC (Bld) [#/Vol] 0 10*3/uL Normal 0-5 [facility] Comment on above: Performed By: #### L 100.0100, L500.4050 ####[facility] [address] [place], [address] Platelet mean volume (Bld) [Entitic vol] 11.9 fL Normal 6.2-12.0 [facility] Comment on above: Performed By: #### L 100.0100, L500.4050 ####[facility] [address] [place], [address] Platelets (Bld) [#/Vol] 193 10*3/uL Normal 150-450 [facility] Comment on above: Performed By: #### L 100.0100, L500.4050 ####[facility] [address] [place], [address] RBC (Bld) [#/Vol] 5.11 10*6/uL Normal 4.2-5.4 [facility] Comment on above: Performed By: #### L 100.0100, L500.4050 ####[facility] [address] [place], [address] RDW SD 52.4 fl High 35.1-43.9 [facility] Comment on above: Performed By: #### L 100.0100, L500.4050 ####[facility] [address] [place], [address] WBC (Bld) [#/Vol] 15.1 10*3/uL High 4.4-11.0 [facility] Comment on above: Performed By: #### L 100.0100, L500.4050 ####[facility] [address] [place], [address] Carbon dioxide, total [Moles /volume] in Central venous bloodOrdered By: Obinna Frye on 08-07-2024 CO2 [Moles/Vol] 14.6 mmol/L Low 21.0-32.0 [facility] Chloride assayOrdered By: Shashank Frye on 08-07-2024 Chloride [Moles/Vol] 107 mmol/L 98-108 [facility] Comprehensive Metabolic Prof ilon 08-07-2024 Albumin [Mass/Vol] 4.1 g/dL Normal 3.4-4.8 [facility] Comment on above: Performed By: #### L 100.0100, L500.4050 ####[facility] [address] [place], [address] Albumin/Globulin [Mass ratio] 1.8 {ratio} Normal 0.9-2.4 [facility] Comment on above: Performed By: #### L 100.0100, L500.4050 ####[facility] [address] [place], [address] ALK PHOS 102 U/L Normal 35-104 [facility] Comment on above: Performed By: #### L 100.0100, L500.4050 ####[facility] [address] [place], [address] ALT [Catalytic activity/Vol] 20 U/L Normal <=34 [facility] Comment on above: Performed By: #### L 100.0100, L500.4050 ####[facility] [address] [place], [address] AST [Catalytic activity/Vol] 27 U/L Normal <=31 [facility] Comment on above: Result Comment: Hemo lysis present, Results??could be affected.?? Performed By: #### L 100.0100, L500.4050 ####[facility] [address] [place], [address] Bilirubin [Mass/Vol] 0.52 mg/dL Normal 0.00-1.30 [facility] Comment on above: Performed By: #### L 100.0100, L500.4050 ####[facility] [address] [place], [address] BUN/CRE 27.3 RATIO High 10-20 [facility] Comment on above: Performed By: #### L 100.0100, L500.4050 ####[facility] [address] [place], [address] Calcium [Mass/Vol] 9.9 mg/dL Normal 7.6-11.0 [facility] Comment on above: Performed By: #### L 100.0100, L500.4050 ####[facility] [address] [place], [address] Chloride [Moles/Vol] 107 mmol/L Normal 98-108 [facility] Comment on above: Performed By: #### L 100.0100, L500.4050 ####[facility] [address] [place], [address] CO2 [Moles/Vol] 14.6 mmol/L Low 21.0-32.0 [facility] Comment on above: Performed By: #### L 100.0100, L500.4050 ####[facility] [address] [place], [address] Creatinine [Mass/Vol] 1.59 mg/dL High 0.70-1.20 [facility] Comment on above: Performed By: #### L 100.0100, L500.4050 ####[facility] [address] [place], [address] ECRCL 25.08 ml/min Low 50-250 [facility] Comment on above: Performed By: #### L 100.0100, L500.4050 ####[facility] [address] [place], [address] GAP 15 Normal 5-15 [facility] Comment on above: Performed By: #### L 100.0100, L500.4050 ####[facility] [address] [place], [address] GFR/1.73 sq M.predicted among non-blacks MDRD (S/P/Bld) [Vol rate/Area] 32 mL/min/{1.73_m2} Low >60 [facility] Comment on above: Result Comment: mL/m in/1.73m2 CKD-EPI Creatinine Equation (2020) Performed By: #### L 100.0100, L500.4050 ####[facility] [address] [place], [address] Globulin (S) [Mass/Vol] 2.2 g/dL Normal 2.2-4.2 [facility] Comment on above: Performed By: #### L 100.0100, L500.4050 ####[facility] [address] [place], [address] Glucose [Mass/Vol] 139 mg/dL High 70-99 [facility] Comment on above: Performed By: #### L 100.0100, L500.4050 ####[facility] [address] [place], [address] Potassium [Moles/Vol] 4.5 mmol/L Normal 3.3-5.1 [facility] Comment on above: Result Comment: Hemo lysis present, Results??could be affected.?? Performed By: #### L 100.0100, L500.4050 ####[facility] [address] [place], [address] Sodium [Moles/Vol] 137 mmol/L Normal 133-145 [facility] Comment on above: Performed By: #### L 100.0100, L500.4050 ####[facility] [address] [place], [address] T PROT 6.3 g/dL Normal 5.9-8.4 [facility] Comment on above: Performed By: #### L 100.0100, L500.4050 ####[facility] [address] [place], [address] Urea nitrogen [Mass/Vol] 43 mg/dL High 4-19 [facility] Comment on above: Performed By: #### L 100.0100, L500.4050 ####[facility] [address] [place], [place], [id number] Emergency Department Summary on 08-07-2024 Emergency Department Summary Normal [facility] Eosinophil percentageOrdered By: Obinna Frye on 08-07-2024 Eosinophils/100 WBC (Bld) 1.1 % 0-5 [facility] Erythrocyte distribution wid th ratioOrdered By: Obinna Frye on 08-07-2024 Erythrocyte distribution width (RBC) [Ratio] 15.6 % High 11.6-14.6 [facility] Erythrocyte distribution wid th standard deviationOrdered By: Obinna Frye on 08-07-2024 Erythrocyte distribution width (RBC) [Ratio] 52.4 fl High 35.1-43.9 [facility] Ferritinon 08-07-2024 Ferritin [Mass/Vol] 107 ng/mL Normal 22-378 [facility] Comment on above: Performed By: #### L 503.6005, L509.6002, L501.9520, L300.3900, L503.6030, L503.6550 ####[facility] [address] [place], [place], [address] Glomerular filtration rate ( GFR) estimation/1.73 sq m using serum, plasma, or whole bOrdered By: Obinna Frye on 08-07-2024 GFR/1.73 sq M.predicted among non-blacks MDRD (S/P/Bld) [Vol rate/Area] 32 mL/min/{1.73_m2} Low >60 [facility] Comment on above: mL/min/1.73m2 CKD-EP I Creatinine Equation (2020) H AND P Exam - [facility] 08-07-2024 H&P Exam - Hospitalist Normal [facility] Hematocrit Auto (Bld) [Volum e fraction]Ordered By: Obinna Frye on 08-07-2024 Hematocrit (Bld) [Volume fraction] 46.5 % 37-47 [facility] Hemoglobin measurementOrdere d By: Obinna Frye on 08-07-2024 Hemoglobin (Bld) [Mass/Vol] 15.2 g/dL High 12.0-15.0 [facility] Immature granulocytes/100 WB C Auto (Bld)Ordered By: Obinna Frye on 08-07-2024 Immature granulocytes/100 WBC (Bld) 1.600 % High 0.0-0.9 [facility] Comment on above: IG% - Immature Granu locytes (promyelocytes, myelocytes and metamyelocytes) > 1% indicates that a LEFT SHIFT is Present. International normalized rat io (INR) calculationOrdered By: Nixon Brizuela on 08-07-2024 INR Coag (Bld) [Relative time] 1.1 {INR} [facility] Iron measurement (mass/mass) Ordered By: Nixon Brizuela on 08-07-2024 Iron (Unsp spec) [Mass/Mass] 55 ug/dL 50-170 [facility] Iron+Iron Binding Capacityon 08-07-2024 Iron [Mass/Vol] 55 ug/dL Normal 50-170 [facility] Comment on above: Performed By: #### L 503.6005, L509.6002, L501.9520, L300.3900, L503.6030, L503.6550 ####[facility] [address] [place], [address] IRON SATURATION 19.0 Normal 13-59 [facility] Comment on above: Performed By: #### L 503.6005, L509.6002, L501.9520, L300.3900, L503.6030, L503.6550 ####[facility] [address] [place], [address] TIBC 295 ug/dL Normal 250-450 [facility] Comment on above: Performed By: #### L 503.6005, L509.6002, L501.9520, L300.3900, L503.6030, L503.6550 ####[facility] [address] [place], [address] UIBC 240 ug/dL Normal 228-428 [facility] Comment on above: Result Comment: Hemo lysis present, Results??could be affected.?? Performed By: #### L 503.6005, L509.6002, L501.9520, L300.3900, L503.6030, L503.6550 ####[facility] [address] [place], [address] Ketones Test strip Ql (U)Ord ered By: Obinna Frye on 08-07-2024 Ketones Ql (U) Negative Negative [facility] L499.0042on 08-07-2024 Trop T High Sen 55 ng/L Invalid Interpretation Code <=14 [facility] Comment on above: Result Comment: Crit ical Result(s) Called at: 1847 by: TOY DE LA TORRE??Results read back by same. Performed By: #### L 499.0042 ####[facility] [address] [place], [address] L499.0043on 08-07-2024 Trop T High Sen 52 ng/L High <=14 [facility] Comment on above: Result Comment: Crit ical Result(s) Called at: 2158 by:??TOY JASSO Results read back by same. Performed By: #### L 499.0043 ####[facility] [address] [place], [address] L501.4021on 08-07-2024 Trop T High Sen 60 ng/L Invalid Interpretation Code <=14 [facility] Comment on above: Result Comment: Crit ical Result(s) Called at: 1736 by: TOY RENDON??Results read back by same. Performed By: #### L 501.4021, M200.1000 ####[facility] [address] [place], [address] L509.6002on 08-07-2024 CORTISOL 12.00 ug/dL High 2.68-10.50 [facility] Comment on above: Performed By: #### L 503.6005, L509.6002, L501.9520, L300.3900, L503.6030, L503.6550 ####[facility] [address] [place], [place], [address] Laboratory - Chemistry and C hemistry - challengeOrdered By: Obinna Frye on 08-07-2024 AST [Catalytic activity/Vol] 27 U/L <32 [facility] Comment on above: Hemolysis present, R esults could be affected. Lactic Acidon 08-07-2024 Lactate [Moles/Vol] mmol/L Normal 0.0-2.0 [facility] Comment on above: Order Comment: Comme nts: if result >2, system reflex orders 2nd test @ 4hrsY Performed By: #### L 503.6005, L509.6002, L501.9520, L300.3900, L503.6030, L503.6550 ####[facility] [address] [place], [place], [id number] Lactic acid measurementOrder ed By: Nixon Brizuela on 08-07-2024 Lactate [Moles/Vol] mmol/L 0.0-2.0 [facility] MCV (mean corpuscular volume ) determinationOrdered By: Obinna Frye on 08-07-2024 MCV (RBC) [Entitic vol] 91.0 fL 81-99 [facility] Mean corpuscular hemoglobin (MCH) determinationOrdered By: Obinna Frye on 08-07-2024 MCH (RBC) [Entitic mass] 29.7 pg 27.0-32.0 [facility] Mean corpuscular hemoglobin concentration (MCHC) determinationOrdered By: Obinna Frye on 08-07-2024 MCHC (RBC) [Mass/Vol] 32.7 g/dL 32-36 [facility] Mean platelet volume determi nationOrdered By: Obinna Frye on 08-07-2024 Platelet mean volume (Bld) [Entitic vol] 11.9 fL 6.2-12.0 [facility] Microscopic analysis of urin e for red blood cells (RBC)Ordered By: Obinna Frye on 08-07-2024 Microscopic analysis of urine for red blood cells (RBC) 0-5 SEEN /hpf 0-5 [facility] Monocyte percentageOrdered B y: Obinnamorales Molinao on 08-07-2024 Monocytes/100 WBC (Bld) 9.7 % 0-10 [facility] Mucus LM Ql (Urine sed)Order ed By: Obinna Frye on 08-07-2024 Mucus Ql (Urine sed) 0 SEEN /hpf [facility] Neutrophil percentageOrdered By: Obinna Frye on 08-07-2024 Neutrophils/100 WBC (Bld) 71.7 % High 47-70 [facility] Nitrite Test strip Ql (U)Ord ered By: Obinna Frye on 08-07-2024 Nitrite Ql (U) Positive High Negative [facility] No Panel InformationOrdered By: Nixon Brizuela on 08-07-2024 Unsaturated Iron Binding Capacity 240 ug/dL 228-428 [facility] Comment on above: Hemolysis present, R esults could be affected. Nucleated red blood cell per centageOrdered By: Obinna Frye on 08-07-2024 Nucleated RBC/100 WBC (Bld) [Ratio] 0 % 0-5 [facility] Platelet countOrdered By: Shashank morales Molinao on 08-07-2024 Platelets (Bld) [#/Vol] 193 10*3/uL 150-450 [facility] Potassium measurement (mass/ volume)Ordered By: Obinna Frye on 08-07-2024 Potassium (Unsp spec) [Mass/Vol] 4.5 mmol/L 3.3-5.1 [facility] Comment on above: Hemolysis present, R esults could be affected. Protein Test strip Ql (U)Ord ered By: Obinna Frye on 08-07-2024 Protein Ql (U) 30 mg/dl High Negative [facility] Prothrombin Time w/INRon INR Coag (PPP) [Relative time] 1.1 {INR} Normal [facility] Comment on above: Performed By: #### L 503.6005, L509.6002, L501.9520, L300.3900, L503.6030, L503.6550 ####[facility] [address] [place], [address] PT Coag (PPP) [Time] 14.9 s Normal 11.7-14.9 [facility] Comment on above: Performed By: #### L 503.6005, L509.6002, L501.9520, L300.3900, L503.6030, L503.6550 ####[facility] [address] [place], [address] Prothrombin timeOrdered By: Nixon Brizuela on 08-07-2024 PT Coag (PPP) [Time] 14.9 s 11.7-14.9 [facility] RBC Auto (Bld) [#/Vol]Ordere d By: Obinnamorales Frye on 08-07-2024 RBC (Bld) [#/Vol] 5.11 10*6/uL 4.2-5.4 [facility] Serum creatinine measurement (mass/volume)Ordered By: Obinna Frye on 08-07-2024 Creatinine [Mass/Vol] 1.59 mg/dL High 0.70-1.20 [facility] Serum globulin measurementOr dered By: Obinna Frye on 08-07-2024 Globulin (S) [Mass/Vol] 2.2 g/dL 2.2-4.2 [facility] Serum glucose measurement (m ass/volume)Ordered By: Obinna Frye on 08-07-2024 Glucose [Mass/Vol] 139 mg/dL High 70-99 [facility] Serum or plasma alanine evans otransferase (ALT) measurementOrdered By: Obinnamorales Frye on 08-07-2024 ALT [Catalytic activity/Vol] 20 U/L <35 [facility] Serum or plasma albumin scott urement (mass/volume)Ordered By: Obinna Frye on 08-07-2024 Albumin [Mass/Vol] 4.1 g/dL 3.4-4.8 [facility] Serum or plasma albumin/glob ulin mass ratioOrdered By: Obinna Frye on 08-07-2024 Albumin/Globulin [Mass ratio] 1.8 {ratio} 0.9-2.4 [facility] Serum or plasma alkaline bárbara sphatase measurementOrdered By: Obinna Frye on 08-07-2024 ALP [Catalytic activity/Vol] 102 U/L 35-104 [facility] Serum or plasma calcium scott urement (mass/volume)Ordered By: Obinna Frye on 08-07-2024 Calcium [Mass/Vol] 9.9 mg/dL 7.6-11.0 [facility] Serum or plasma cortisol marely surement (mass/volume)Ordered By: Nixon Brizuela on 08-07-2024 Cortisol [Mass/Vol] 12.00 ug/dL High 2.68-10.50 [facility] Serum or plasma ferritin marely surement (mass/volume)Ordered By: Nixon Brizuela on 08-07-2024 Ferritin [Mass/Vol] 107 ng/mL 22-378 [facility] Serum or plasma iron saturat ion measurement (mass fraction)Ordered By: Nixon Brizuela on 08-07-2024 Iron saturation [Mass fraction] 19.0 % 13-59 [facility] Serum or plasma urea nitroge n measurement (mass/volume)Ordered By: Obinna Frye on 08-07-2024 Urea nitrogen [Mass/Vol] 43 mg/dL High 4-19 [facility] Sodium levelOrdered By: Obinna Frye on 08-07-2024 Sodium [Moles/Vol] 137 mmol/L 133-145 [facility] Squamous epithelial cells de tection in urine sediment by light microscopyOrdered By: Obinna Frye on 08-07-2024 Epithelial cells.squamous LM Ql (Urine sed) 0 SEEN /hpf 5-10 [facility] TSH DL <= 0.005 mIU/L QnOrde red By: Nixon Brizuela on 08-07-2024 TSH Qn 1.030 uIU/mL 0.300-4.200 [facility] Thyroid Stim Hormone (TSH)on 08-07-2024 TSH 1.030 uIU/mL Normal 0.300-4.200 [facility] Comment on above: Performed By: #### L 503.6003, L509.6002, L501.9520, L300.3900, L503.6030, L503.2210 ####[facility] [address] [place], [address] Total proteinOrdered By: Obinna Frye on 08-07-2024 Protein [Mass/Vol] 6.3 g/dL 5.9-8.4 [facility] Troponin T.cardiac [Mass/vol ume] in Serum or Plasma by High sensitivity methodOrdered By: Obinna Frye on 08-07-2024 Troponin T.cardiac High sensitivity method [Mass/Vol] 52 ng/L High <14 [facility] Comment on above: Critical Result(s) C alled at: 2158 by: TOY BUNCH TO ABENA JASSO Results read back by same. Troponin T.cardiac High sensitivity method [Mass/Vol] 55 ng/L Critically high <14 [facility] Comment on above: Critical Result(s) C alled at: 1847 by: TOY DE LA TORRE Results read back by same. Troponin T.cardiac High sensitivity method [Mass/Vol] 60 ng/L Critically high <14 [facility] Comment on above: Critical Result(s) C alled at: 1736 by: TOY BUNCH TO JOHN IBARRA Results read back by same. Type AND Screenon 08-07-2024 Ab SCREEN GEL Negative Normal [facility] Comment on above: Order Comment: Has p t arrived? YHGI Performed By: #### B TS ####[facility] [address] [place], [address] Urinalysis, Completeon 08-07 BACTERIA 3+ /hpf Normal None Seen [facility] Comment on above: Order Comment: CLEAN CATCH Performed By: #### M 100.2200, L400.0001 ####[facility] [address] [place], [address] RBC 0-5 SEEN Normal 0-5 [facility] Comment on above: Order Comment: CLEAN CATCH Performed By: #### M 100.2200, L400.0001 ####[facility] [address] [place], [address] WBC 5-10 SEEN Normal 0-5 [facility] Comment on above: Order Comment: CLEAN CATCH Performed By: #### M 100.2200, L400.0001 ####[facility] [address] [place], [address] EPI,SQUAMOUS 0 SEEN Normal 5-10 [facility] Comment on above: Order Comment: CLEAN CATCH Performed By: #### M 100.2200, L400.0001 ####[facility] [address] [place], [address] Mucus Ql (Urine sed) 0 SEEN Normal [facility] Comment on above: Order Comment: CLEAN CATCH Performed By: #### M 100.2200, L400.0001 ####[facility] [address] [place], [address] Urine clarityOrdered By: Obinna Frye on 08-07-2024 Clarity (U) Clear Clear [facility] Urine color determinationOrd ered By: Obinna Frye on 08-07-2024 Color (U) Yellow Yellow [facility] Urine cultureOrdered By: Obinna Frye on 08-07-2024 Bacteria identified Cx Nom (U) Klebsiella aerogenes Abnormal [facility] Urine glucose detectionOrder ed By: Obinna Frye on 08-07-2024 Glucose Ql (U) Normal mg/dl Normal [facility] Urine leukocyte esterase det ection by dipstickOrdered By: Obinna Frye on 08-07-2024 Leukocyte esterase Test strip Ql (U) 25 /ul High Negative [facility] Urine pHOrdered By: Obinna nielsen on 08-07-2024 pH (U) 6.0 [pH] 5.0 - 8.0 [facility] Urine sediment bacteria coun t by microscopy (number/high power field)Ordered By: Obinna Frye on 08-07-2024 Bacteria LM.HPF (Urine sed) [#/Area] 3 /[HPF] None Seen [facility] Urine specific gravity measu rementOrdered By: Obinna Frye on 08-07-2024 Specific gravity (U) [Rel density] 1.015 1.002-1.030 [facility] Urine urobilinogen measureme ntOrdered By: Obinna Frye on 08-07-2024 Urobilinogen Ql (U) Normal mg/dl Normal [facility] White blood cell (WBC) count Ordered By: Obinna Frye on 08-07-2024 WBC (Bld) [#/Vol] 15.1 10*3/uL High 4.4-11.0 [facility] White blood cell countOrdere d By: Obinna Frye on 08-07-2024 White blood cell count 5-10 SEEN /hpf 0-5 [facility] Anion gap in Serum or Plasma Ordered By: Jordan Estuardo on 08-05-2024 Anion gap [Moles/Vol] 12 mmol/L 5-15 [facility] BUN/creatinine ratioOrdered By: [place] Estuardo on 08-05-2024 Urea nitrogen/Creatinine [Mass ratio] 23.7 mg/mg High 10-20 [facility] Basic Metabolic Profile (BMP )on 08-05-2024 BUN/CRE 23.7 RATIO High 10- [facility] Comment on above: Performed By: #### L 300.3900, L500.2500 ####[facility] [address] [place], [address] Calcium [Mass/Vol] 9.8 mg/dL Normal 7.6-11.0 [facility] Comment on above: Performed By: #### L 300.3900, L500.2500 ####[facility] [address] [place], [address] Chloride [Moles/Vol] 111 mmol/L High 98-108 [facility] Comment on above: Performed By: #### L 300.3900, L500.2500 ####[facility] [address] [place], [address] CO2 [Moles/Vol] 17.0 mmol/L Low 21.0-32.0 [facility] Comment on above: Performed By: #### L 300.3900, L500.2500 ####[facility] [address] [place], [address] Creatinine [Mass/Vol] 1.55 mg/dL High 0.70-1.20 [facility] Comment on above: Performed By: #### L 300.3900, L500.2500 ####[facility] [address] [place], [address] ECRCL 25.41 ml/min Low 50-250 [facility] Comment on above: Performed By: #### L 300.3900, L500.2500 ####[facility] [address] [place], [address] GAP 12 Normal 5-15 [facility] Comment on above: Performed By: #### L 300.3900, L500.2500 ####[facility] [address] [place], [address] GFR/1.73 sq M.predicted among non-blacks MDRD (S/P/Bld) [Vol rate/Area] 33 mL/min/{1.73_m2} Low >60 [facility] Comment on above: Result Comment: mL/m in/1.73m2 CKD-EPI Creatinine Equation (2020) Performed By: #### L 300.3900, L500.2500 ####[facility] [address] [place], [address] Glucose [Mass/Vol] 96 mg/dL Normal 70-99 [facility] Comment on above: Performed By: #### L 300.3900, L500.2500 ####[facility] [address] [place], [address] Potassium [Moles/Vol] 4.5 mmol/L Normal 3.3-5.1 [facility] Comment on above: Result Comment: Hemo lysis present, Results??could be affected.?? Performed By: #### L 300.3900, L500.2500 ####[facility] [address] [place], [address] Sodium [Moles/Vol] 140 mmol/L Normal 133-145 [facility] Comment on above: Performed By: #### L 300.3900, L500.2500 ####[facility] [address] [place], [address] Urea nitrogen [Mass/Vol] 37 mg/dL High 4-19 [facility] Comment on above: Performed By: #### L 300.3900, L500.2500 ####[facility] [address] [place], [address] Carbon dioxide, total [Moles /volume] in Central venous bloodOrdered By: Jordan Marte on 08-05-2024 CO2 [Moles/Vol] 17.0 mmol/L Low 21.0-32.0 [facility] Chloride assayOrdered By: Jorge L ril Estuardo on 08-05-2024 Chloride [Moles/Vol] 111 mmol/L High 98-108 [facility] Glomerular filtration rate ( GFR) estimation/1.73 sq m using serum, plasma, or whole bOrdered By: Milwaukeestacy Marte on 08-05-2024 GFR/1.73 sq M.predicted among non-blacks MDRD (S/P/Bld) [Vol rate/Area] 33 mL/min/{1.73_m2} Low >60 [facility] Comment on above: mL/min/1.73m2 CKD-EP I Creatinine Equation (2020) International normalized rat io (INR) calculationOrdered By: [place] Estuardo on 08-05-2024 INR Coag (Bld) [Relative time] 1.0 {INR} [facility] Potassium measurement (mass/ volume)Ordered By: Jordan Marte on 08-05-2024 Potassium (Unsp spec) [Mass/Vol] 4.5 mmol/L 3.3-5.1 [facility] Comment on above: Hemolysis present, R esults could be affected. Prothrombin Time w/INRon INR Coag (PPP) [Relative time] 1.0 {INR} Normal [facility] Comment on above: Performed By: #### L 300.3900, L500.2500 ####[facility] [address] [place], [place], [address] PT Coag (PPP) [Time] 13.1 s Normal 11.7-14.9 [facility] Comment on above: Performed By: #### L 300.3900, L500.2500 ####[facility] [address] [place], [place], [id number] Prothrombin timeOrdered By: Jordan Marte on 08-05-2024 PT Coag (PPP) [Time] 13.1 s 11.7-14.9 [facility] Serum creatinine measurement (mass/volume)Ordered By: Jordan Marte on 08-05-2024 Creatinine [Mass/Vol] 1.55 mg/dL High 0.70-1.20 [facility] Serum glucose measurement (m ass/volume)Ordered By: Jordan Marte on 08-05-2024 Glucose [Mass/Vol] 96 mg/dL 70-99 [facility] Serum or plasma calcium scott urement (mass/volume)Ordered By: Jordan Marte on 08-05-2024 Calcium [Mass/Vol] 9.8 mg/dL 7.6-11.0 [facility] Serum or plasma urea nitroge n measurement (mass/volume)Ordered By: Jordan Marte on 08-05-2024 Urea nitrogen [Mass/Vol] 37 mg/dL High 4-19 [facility] Sodium levelOrdered By: Jarocho Marte on 08-05-2024 Sodium [Moles/Vol] 140 mmol/L 133-145 [facility] CNOVon 07-24-2024 CNOV Office Visit (INTMWS ) -------- LINDA PERALTA ([id number]) 1945 F Date Time Provider Department 07/24/24 11:00 AM AMOS FLOYD INTMWS During your visit today, we recorded the following information about you: Pulse Respiration Blood pressure Weight 80/minute 20/minute 126/82 65.8 kg Amos Floyd MD 07/24/2024 12:45 PM Signed This note was created using NoteWriter. Subjective Linda Peralta is a 79 year old female. Recording using [employer] software for draft documentation of the visit was discussed with the patient/authorized direct marketing representative; all questions welcomed and answered. Patient/authorized direct marketing representative agreed to proceed Heart Murmur: - [...] - Evelia (more content not included)... Normal [facility] Absolute lymphocyte countOrd ered By: Jordan Marte on 07-23-2024 Lymphocytes Auto (Unsp spec) [#/Vol] 1.15 10*3/uL 0.83-4.51 [facility] Absolute neutrophil countOrd ered By: Jordan Marte on 07-23-2024 Neutrophils (Bld) [#/Vol] 8.1 10*3/uL High 2.0-7.7 [facility] Activated partial thrombopla stin time (aPTT) in platelet poor plasma by coagulation aOrdered By: Jordan Marte on 07-23-2024 aPTT Coag (PPP) [Time] 33.9 s 24.1-36.2 [facility] Automated lymphocyte count a s percentage of total leukocytesOrdered By: Jordan Marte on 07-23-2024 Lymphocytes/100 WBC Auto (Unsp spec) 11.0 % Low 19-41 [facility] Basic Metabolic Profile (BMP )on 07-23-2024 BUN/CRE 28.1 RATIO High 10-20 [facility] Comment on above: Order Comment: Do al chris with PT/INR in 1 week Performed By: #### L 300.4310, L100.0100, L300.3900, L500.2500 ####[facility] [address] [place], [place], [id number] Calcium [Mass/Vol] 10.4 mg/dL Normal 7.6-11.0 [facility] Comment on above: Order Comment: Do al chris with PT/INR in 1 week Performed By: #### L 300.4310, L100.0100, L300.3900, L500.2500 ####[facility] [address] [place], [address] Chloride [Moles/Vol] 108 mmol/L Normal 98-108 [facility] Comment on above: Order Comment: Do al chris with PT/INR in 1 week Performed By: #### L 300.4310, L100.0100, L300.3900, L500.2500 ####[facility] [address] [place], [address] CO2 [Moles/Vol] 21.6 mmol/L Normal 21.0-32.0 [facility] Comment on above: Order Comment: Do al chris with PT/INR in 1 week Performed By: #### L 300.4310, L100.0100, L300.3900, L500.2500 ####[facility] [address] [place], [address] Creatinine [Mass/Vol] 1.60 mg/dL High 0.70-1.20 [facility] Comment on above: Order Comment: Do al chris with PT/INR in 1 week Performed By: #### L 300.4310, L100.0100, L300.3900, L500.2500 ####[facility] [address] [place], [address] GAP 12 Normal 5-15 [facility] Comment on above: Order Comment: Do al chris with PT/INR in 1 week Performed By: #### L 300.4310, L100.0100, L300.3900, L500.2500 ####[facility] [address] [place], [address] GFR/1.73 sq M.predicted among non-blacks MDRD (S/P/Bld) [Vol rate/Area] 32 mL/min/{1.73_m2} Low >60 [facility] Comment on above: Order Comment: Do al chris with PT/INR in 1 week Result Comment: mL/m in/1.73m2 CKD-EPI Creatinine Equation (2020) Performed By: #### L 300.4310, L100.0100, L300.3900, L500.2500 ####[facility] [address] [place], [address] Glucose [Mass/Vol] 93 mg/dL Normal 70-99 [facility] Comment on above: Order Comment: Do al chris with PT/INR in 1 week Performed By: #### L 300.4310, L100.0100, L300.3900, L500.2500 ####[facility] [address] [place], [address] Potassium [Moles/Vol] 5.1 mmol/L Normal 3.3-5.1 [facility] Comment on above: Order Comment: Do al chris with PT/INR in 1 week Result Comment: Hemo lysis present, Results??could be affected.?? Performed By: #### L 300.4310, L100.0100, L300.3900, L500.2500 ####[facility] [address] [place], [address] Sodium [Moles/Vol] 142 mmol/L Normal 133-145 [facility] Comment on above: Order Comment: Do al chris with PT/INR in 1 week Performed By: #### L 300.4310, L100.0100, L300.3900, L500.2500 ####[facility] [address] [place], [address] Urea nitrogen [Mass/Vol] 45 mg/dL High 4-19 [facility] Comment on above: Order Comment: Do al chris with PT/INR in 1 week Performed By: #### L 300.4310, L100.0100, L300.3900, L500.2500 ####[facility] [address] [place], [address] Basophil percentageOrdered B y: [place] Estuardo on 07-23-2024 Basophils/100 WBC (Bld) 0.4 % 0-1 [facility] CBC W/Diff, Automatedon 06-0 3-2024 Absolute Lymph 1.15 X10 3/uL Normal 0.83-4.51 [facility] Comment on above: Performed By: #### L 300.4310, L100.0100, L300.3900, L500.2500 ####[facility] [address] [place], [address] Absolute Neut 8.1 X10 3/uL High 2.0-7.7 [facility] Comment on above: Performed By: #### L 300.4310, L100.0100, L300.3900, L500.2500 ####[facility] [address] [place], [address] Basophils/100 WBC (Bld) 0.4 % Normal 0-1 [facility] Comment on above: Performed By: #### L 300.4310, L100.0100, L300.3900, L500.2500 ####[facility] [address] [place], [address] Eosinophils/100 WBC (Bld) 0.9 % Normal 0-5 [facility] Comment on above: Performed By: #### L 300.4310, L100.0100, L300.3900, L500.2500 ####[facility] [facility] [address] [place], [address] Erythrocyte distribution width (RBC) [Ratio] 15.7 % High 11.6-14.6 [facility] Comment on above: Performed By: #### L 300.4310, L100.0100, L300.3900, L500.2500 ####[facility] [address] [place], [address] Hematocrit (Bld) [Volume fraction] 50.1 % High 37-47 [facility] Comment on above: Performed By: #### L 300.4310, L100.0100, L300.3900, L500.2500 ####[facility] [address] [place], [address] Hemoglobin (Bld) [Mass/Vol] 16.3 g/dL High 12.0-15.0 [facility] Comment on above: Performed By: #### L 300.4310, L100.0100, L300.3900, L500.2500 ####[facility] [address] [place], [address] IG% 0.900 Normal 0.0-0.9 [facility] Comment on above: Result Comment: IG% - Immature Granulocytes (promyelocytes, myelocytes andmetamyelocytes) > 1% indicates that a LEFT SHIFT is Present. Performed By: #### L 300.4310, L100.0100, L300.3900, L500.2500 ####[facility] [address] [place], [address] Lymphocytes/100 WBC (Bld) 11.0 % Low 19-41 [facility] Comment on above: Performed By: #### L 300.4310, L100.0100, L300.3900, L500.2500 ####[facility] [address] [place], [address] MCH (RBC) [Entitic mass] 29.9 pg Normal 27.0-32.0 [facility] Comment on above: Performed By: #### L 300.4310, L100.0100, L300.3900, L500.2500 ####[facility] [address] [place], [address] MCHC (RBC) [Mass/Vol] 32.5 g/dL Normal 32-36 [facility] Comment on above: Performed By: #### L 300.4310, L100.0100, L300.3900, L500.2500 ####[facility] [address] [place], [address] MCV (RBC) [Entitic vol] 91.9 fL Normal 81-99 [facility] Comment on above: Performed By: #### L 300.4310, L100.0100, L300.3900, L500.2500 ####[facility] [address] [place], [address] Monocytes/100 WBC (Bld) 9.0 % Normal 0-10 [facility] Comment on above: Performed By: #### L 300.4310, L100.0100, L300.3900, L500.2500 ####[facility] [address] [place], [address] Neutrophils/100 WBC (Bld) 77.8 % High 47-70 [facility] Comment on above: Performed By: #### L 300.4310, L100.0100, L300.3900, L500.2500 ####[facility] [address] [place], [address] Nucleated RBC (Bld) [#/Vol] 0 10*3/uL Normal 0-5 [facility] Comment on above: Performed By: #### L 300.4310, L100.0100, L300.3900, L500.2500 ####[facility] [address] [place], [address] Platelet mean volume (Bld) [Entitic vol] 11.8 fL Normal 6.2-12.0 [facility] Comment on above: Performed By: #### L 300.4310, L100.0100, L300.3900, L500.2500 ####[facility] [address] [place], [address] Platelets (Bld) [#/Vol] 222 10*3/uL Normal 150-450 [facility] Comment on above: Performed By: #### L 300.4310, L100.0100, L300.3900, L500.2500 ####[facility] [address] [place], [address] RBC (Bld) [#/Vol] 5.45 10*6/uL High 4.2-5.4 [facility] Comment on above: Performed By: #### L 300.4310, L100.0100, L300.3900, L500.2500 ####[facility] [address] [place], [address] RDW SD 52.5 fl High 35.1-43.9 [facility] Comment on above: Performed By: #### L 300.4310, L100.0100, L300.3900, L500.2500 ####[facility] [address] [place], [address] WBC (Bld) [#/Vol] 10.5 10*3/uL Normal 4.4-11.0 [facility] Comment on above: Performed By: #### L 300.4310, L100.0100, L300.3900, L500.2500 ####[facility] [address] [place], [address] Cardiology Visit Reporton Cardiology Visit Report Normal [facility] Chest PA and Lateralon 07-23 Chest PA and Lateral Normal [facility] Eosinophil percentageOrdered By: Jordan Marte on 07-23-2024 Eosinophils/100 WBC (Bld) 0.9 % 0-5 [facility] Erythrocyte distribution wid th ratioOrdered By: [place] Estuardo on 07-23-2024 Erythrocyte distribution width (RBC) [Ratio] 15.7 % High 11.6-14.6 [facility] Erythrocyte distribution wid th standard deviationOrdered By: [place] Estuardo on 07-23-2024 Erythrocyte distribution width (RBC) [Ratio] 52.5 fl High 35.1-43.9 [facility] Hematocrit Auto (Bld) [Volum e fraction]Ordered By: Jordan Maret on 07-23-2024 Hematocrit (Bld) [Volume fraction] 50.1 % High 37-47 [facility] Hemoglobin measurementOrdere d By: Jordan Marte on 07-23-2024 Hemoglobin (Bld) [Mass/Vol] 16.3 g/dL High 12.0-15.0 [facility] Immature granulocytes/100 WB C Auto (Bld)Ordered By: Jordan Marte on 07-23-2024 Immature granulocytes/100 WBC (Bld) 0.900 % 0.0-0.9 [facility] Comment on above: IG% - Immature Granu locytes (promyelocytes, myelocytes and metamyelocytes) > 1% indicates that a LEFT SHIFT is Present. MCV (mean corpuscular volume ) determinationOrdered By: Jordan Marte on 07-23-2024 MCV (RBC) [Entitic vol] 91.9 fL 81-99 [facility] Mean corpuscular hemoglobin (MCH) determinationOrdered By: Jordan Marte on 07-23-2024 MCH (RBC) [Entitic mass] 29.9 pg 27.0-32.0 [facility] Mean corpuscular hemoglobin concentration (MCHC) determinationOrdered By: Jordan Marte on 07-23-2024 MCHC (RBC) [Mass/Vol] 32.5 g/dL 32-36 [facility] Mean platelet volume determi nationOrdered By: Jordan Marte on 07-23-2024 Platelet mean volume (Bld) [Entitic vol] 11.8 fL 6.2-12.0 [facility] Monocyte percentageOrdered B y: Jordan Marte on 07-23-2024 Monocytes/100 WBC (Bld) 9.0 % 0-10 [facility] Neutrophil percentageOrdered By: Jordan Marte on 07-23-2024 Neutrophils/100 WBC (Bld) 77.8 % High 47-70 [facility] Nucleated red blood cell per centageOrdered By: Joradn Marte on 07-23-2024 Nucleated RBC/100 WBC (Bld) [Ratio] 0 % 0-5 [facility] Partial Thromboplast Timeon 07-23-2024 aPTT Coag (Bld) [Time] 33.9 s Normal 24.1-36.2 [facility] Comment on above: Performed By: #### L 300.4310, L100.0100, L300.3900, L500.2500 ####[facility] [address] [place], [address] Platelet countOrdered By: Jorge L Marte on 07-23-2024 Platelets (Bld) [#/Vol] 222 10*3/uL 150-450 [facility] Prothrombin Time w/INRon INR Coag (PPP) [Relative time] 2.4 {INR} Normal [facility] Comment on above: Performed By: #### L 300.4310, L100.0100, L300.3900, L500.2500 ####[facility] [address] [place], [address] PT Coag (PPP) [Time] 26.4 s High 11.7-14.9 [facility] Comment on above: Performed By: #### L 300.4310, L100.0100, L300.3900, L500.2500 ####[facility] [address] [place], [address] RBC Auto (Bld) [#/Vol]Ordere d By: Jordan Marte on 07-23-2024 RBC (Bld) [#/Vol] 5.45 10*6/uL High 4.2-5.4 [facility] White blood cell (WBC) count Ordered By: Jordan Marte on 07-23-2024 WBC (Bld) [#/Vol] 10.5 10*3/uL 4.4-11.0 [facility] CNNURSEon 07-10-2024 [facility] Nurse Visit (FAMPWS) -------- LINDA PERALTA ([id number]) 1945 F Date Time Provider Department 07/10/24 9:15 AM [place] NURSE SARAH During your visit today, we recorded the [...] Status:Closed by DESIRAE ARZOLA on 07/10/24 Normal [facility] 1,25-dihydroxyvitamin D3 [Ma ss/Vol]on 07-05-2024 VIT D1,25 DIHYDROXY 41.2 pg/mL Normal 19.9-79.3 [facility] Comment on above: Order Comment: Speci men Type: BLOOD SPECIMENOrdering Facility: [facility] Address: [address] [place] [address] Performed By: #### 1 989-3, 1649-3 ####[facility] LABCLIA [id number] [place] [address] [place] 25([place])D3 [facility]-ekaterina 2024 25-hydroxyvitamin D3 [Mass/Vol] 37.5 ng/mL Normal 31.0-80.0 [facility] Comment on above: Order Comment: Speci men Type: BLOOD SPECIMENOrdering Facility: [facility] Address: [address] [place] [address] Performed By: #### 1 989-3, 1649-3 ####[facility] LABCLIA [id number] [address] [address] [facility] [place] Calcium.ionized [Moles/Vol]o n 07-05-2024 Calcium.ionized (Bld) [Mass/Vol] 1.34 mmol/L High 1.08-1.30 [facility] Comment on above: Order Comment: Speci men Type: BLOOD SPECIMENOrdering Facility: [facility] Address: [address] [place] [address] Performed By: #### 1 995-0 ####[facility] LABIA [id number] [place] [address] [place] [facility] Calcium.ionized adjusted to pH 7.4 (Bld) [Moles/Vol] 1.33 mmol/L High 1.08-1.30 [facility] Comment on above: Order Comment: Speci men Type: BLOOD SPECIMENOrdering Facility: [facility] Address: [address] [place] [address] Performed By: #### 1 995-0 ####[facility] LABIA [id number] [address] [address] [place] Comprehensive metabolic 2000 panelon 07-05-2024 Albumin [Mass/Vol] 4.0 g/dL Normal 3.9-4.9 [facility] Comment on above: Order Comment: Speci men Type: BLOOD SPECIMENOrdering Facility: [facility] Address: [address] [place] [address] Performed By: #### 3 016-3, 94340-8, 3024-7, 2731-8 ####[facility] LABIA [id number] [address] [address] [place] ALP [Catalytic activity/Vol] 91 U/L Normal 34-123 [facility] Comment on above: Order Comment: Speci men Type: BLOOD SPECIMENOrdering Facility: [facility] Address: [address] [place] [address] Performed By: #### 3 016-3, 63401-0, 3023-7, 2730-09 ####[facility] LABCLIA [id number] [facility] [address] [address] [place] ALT [Catalytic activity/Vol] 26 U/L Normal 7-38 [facility] Comment on above: Order Comment: Speci men Type: BLOOD SPECIMENOrdering Facility: [facility] Address: [address] [place] [address] Performed By: #### 3 016-3, 06388-0, 7, 2730-09 ####[facility] LABCLIA [id number] [place] [address] [place] Anion gap [Moles/Vol] 15 mmol/L Normal 8-15 [facility] Comment on above: Order Comment: Speci men Type: BLOOD SPECIMENOrdering Facility: [facility] Address: [address] [place] [address] Performed By: #### 3 016-3, 04825-3, 7, 2730-09 ####[facility] LABCLIA [id number] [facility] [address] [address] [place] AST [Catalytic activity/Vol] 24 U/L Normal 13-35 [facility] Comment on above: Order Comment: Speci men Type: BLOOD SPECIMENOrdering Facility: [facility] Address: [address] [place] [address] Performed By: #### 3 016-3, 07803-5, 7, 8 ####[facility] LABCLIA [id number] [facility] [address] [address] [place] Bilirubin [Mass/Vol] 0.6 mg/dL Normal 0.2-1.3 [facility] Comment on above: Order Comment: Speci men Type: BLOOD SPECIMENOrdering Facility: [facility] Address: [address] [place] [address] Performed By: #### 3 016-3, 34312-3, 3023-08, 2730-09 ####[facility] LABCLIA [id number] [address] [address] [place] Calcium [Mass/Vol] 10.2 mg/dL Normal 8.5-10.2 [facility] Comment on above: Order Comment: Speci men Type: BLOOD SPECIMENOrdering Facility: [facility] Address: [address] [place] [address] Performed By: #### 3 016-3, 67154-6, 3023-08, 2730-09 ####[facility] LABCLIA [id number] [address] [address] [place] Chloride [Moles/Vol] 104 mmol/L Normal 98-107 [facility] Comment on above: Order Comment: Speci men Type: BLOOD SPECIMENOrdering Facility: [facility] Address: [address] [place] [address] Performed By: #### 3 016-3, 98864-8, 3023-08, 2730-09 ####[facility] LABCLIA [id number] [address] [address] [place] CO2 [Moles/Vol] 22 mmol/L Normal 22-30 [facility] Comment on above: Order Comment: Speci men Type: BLOOD SPECIMENOrdering Facility: [facility] Address: [address] [place] [address] Performed By: #### 3 016-3, 59991-1, 3023-08, 2730-09 ####[facility] LABCLIA [id number] [address] [address] [place] Creatinine [Mass/Vol] 1.34 mg/dL High 0.58-0.96 [facility] Comment on above: Order Comment: Speci men Type: BLOOD SPECIMENOrdering Facility: [facility] Address: [address] [place] [address] Performed By: #### 3 016-3, 01315-4, 3024-7, 273-8 ####[facility] LABCLIA [id number] [address] [address] [place] Creatinine and Glomerular filtration rate.predicted panel (S/P/Bld) 40 mL/min/1.73m??? Low >=60 [facility] Comment on above: Order Comment: Mistymamie fairbanks Type: BLOOD SPECIMENOrdering Facility: [facility] Address: [address] [place] [address] Result Comment: Marisabel mated Glomerular Filtration Rate [...] reflect actual GFR. Performed By: #### 3 016-3, 99822-5, 3024-7, 273-8 ####[facility] LABCLIA [id number] [address] [address] [place] Glucose [Mass/Vol] 87 mg/dL Normal 74-99 [facility] Comment on above: Order Comment: Jody fairbanks Type: BLOOD SPECIMENOrdering Facility: [facility] Address: [address] [place] [address] Result Comment: The [place] [employer] (ADA) provides guidance for cutoff [...] Standards of Medical Care in Diabetes 2016, [place] [employer]. Diabetes Care. 2016.39(Suppl 1). Performed By: #### 3 016-3, 84176-2, 3023-7, 8 ####[facility] LABCLIA [id number] [address] [address] [place] Potassium [Moles/Vol] 5.1 mmol/L Normal 3.7-5.1 [facility] Comment on above: Order Comment: Speci men Type: BLOOD SPECIMENOrdering Facility: [facility] Address: [address] [place] [address] Performed By: #### 3 016-3, 73244-4, 7, 8 ####[facility] LABIA [id number] [address] [address] [place] Protein [Mass/Vol] 6.0 g/dL Low 6.3-8.0 [facility] Comment on above: Order Comment: Speci men Type: BLOOD SPECIMENOrdering Facility: [facility] Address: [address] [place] [address] Performed By: #### 3 016-3, 49877-6, 7, 2730-09 ####[facility] [id number] [address] [address] [place] Sodium [Moles/Vol] 141 mmol/L Normal 136-144 [facility] Comment on above: Order Comment: Speci men Type: BLOOD SPECIMENOrdering Facility: [facility] Address: [address] [place] [address] Performed By: #### 3 016-3, 63535-9, 7, 8 ####[facility] LABIA [id number] [address] [address] [place] Urea nitrogen [Mass/Vol] 42 mg/dL High 7-21 [facility] Comment on above: Order Comment: Speci men Type: BLOOD SPECIMENOrdering Facility: [facility] Address: [address] [place] [address] Performed By: #### 3 016-3, 58573-9, 3024-7, 2731-8 ####[facility] LABCLIA [id number] [place] [address] [place] GALAC PHOS URIDYL Omar 07-05 GALAC PHOS URIDYL TR 26.2 U/g Hb Normal >=19.4 [facility] Comment on above: Order Comment: Speci men Type: BLOOD SPECIMENOrdering Facility: [facility] Address: [address] [place] [address] Result Comment: Norm al swvuxtxgg-7-dlcacwmvx uridyltransferase activity. Results reviewed and interpreted by Fatmata Craven MD, PhD, [facility] INTERPRETIVE INFORMATION: Zycvf-0-Nkyh Uridyltransferase One U/g Hb is equivalent to one umol/hour/gram of hemoglobin (umol/hr/g Hb). Genotype Dojyz-5-Cscn Uridyltransferase activity(umol/hr/g Hb) Classic galactosemia(G/G) ..... Less than or equal to 0.7 Alva galactosemia(D/G) ............. 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 6.5-16.2 Alva homozygous(D/D) ............... 6.4-16.5 Alva carrier(D/N) .................. 12.0-24.0 Normal(N/N) .................. Greater than or equal to 19.4 This test was developed and its performance characteristics determined by [employer]. It has not been cleared or approved by the [place] Food and Drug Administration. This test was performed in a CLIA certified laboratory and is intended for clinical purposes. Counseling and informed consent are recommended for genetic testing. Consent forms are available online. Performed By: [facility] [address] [place] [address] Portfolio Strategist: Jefferson Kerr MD, PhD CLIA Number: [id number] Performed By: #### G 1PHOS ####[facility] [id number] [place] [address] PTH-Intact SerPl-mCncon - Parathyrin.intact [Mass/Vol] 52 pg/mL Normal 15-65 [facility] Comment on above: Order Comment: Speci men Type: BLOOD SPECIMENOrdering Facility: [facility] Address: [address] [place] [address] Performed By: #### 3 016-3, 10024-5, 3023-7, 2730-09 ####[facility] LABCLIA [id number] [place] [address] [place] T4 Free SerPl-mCncon 025 Free T4 [Mass/Vol] 1.4 ng/dL Normal 0.9-1.7 [facility] Comment on above: Order Comment: Speci men Type: BLOOD SPECIMENOrdering Facility: [facility] Address: [address] [place] [address] Performed By: #### 3 016-3, 86400-4, 302-7, 8 ####[facility] LABCLIA [id number] [place] [address] [place] TSH SerPl-aCncon 07-05-2024 TSH Qn 0.460 m[IU]/L Normal 0.270-4.200 [facility] Comment on above: Order Comment: Speci men Type: BLOOD SPECIMENOrdering Facility: [facility] Address: [address] [place] [address] Performed By: #### 3 016-3, 60891-7, 302-7, 8 ####[facility] LABCLIA [id number] [place] [address] [place] Echo Transesophageal (TOMI)on 07-03-2024 Echo Transesophageal (TOMI) Normal [facility] Transesophageal echocardiogr am reportOrdered By: Jordan Marte on 05-14-2025 Study report [facility] [address] [place] [address] Echo Transesophageal (TOMI) 07/03/24 1154 MR#: [id number] Acct: [id number] Name: LINDA PERALTA Rep #:[id number] : 1945 79 From: Jordan Gaitan Attending Dr: NIGHAT Burns atus: REG CLI Ordering Dr: Tucker Reyes Date: 07/03/24 Location: [facility] Sex: F C Admitted: Reason For Study : AORTIC STENOSIS Medication TOMI probe 6VT-D (SN [id number]) passed with minimal difficulty. No complications were noted. Cetacaine Topical [place] given X3 orally. Left Ventricle Normal LV [...] Ordering Physician: Tucker Reyes Referring Physician: Amos lFoyd Performed By: Oksana Perales, COTL, RVT 07/03/24 1505 Date _ Jordan Marte MD CC: Dr. Amos Floyd MD; NIGHAT Burns ~ Date Dictated: 07/03/24 1154 Date Transcribed: 07/03/24 1505 Stringing Machine Operator: Signed [facility] Work Phone: International normalized rat io (INR) measurement by fingerstickOrdered By: Basim Velasquez on 06-21-2024 INR Coag (BldC) [Relative time] 2.0 [facility] Comment on above: Critical Value > 4.0 Protime w/INR Fingerstickon 06-21-2024 INR Coag (PPP) [Relative time] 2.0 {INR} Normal [facility] Comment on above: Result Comment: Crit ical Value > 4.0 Performed By: #### L 9200.0000 ####[facility] [address] [place], [address] Protime Coagsen 22.3 SEC High 11.7-14.9 [facility] Comment on above: Performed By: #### L 9200.0000 ####[facility] [address] [place], [address] Whole blood prothrombin time Ordered By: Basim Velasquez on 06-21-2024 PT Coag (Bld) [Time] 22.3 s High 11.7-14.9 [facility] Echo Completeon 05-24-2024 Echo Complete Normal [facility] Echocardiogram study reportO rdered By: Jordan Marte on 05-24-2024 Study report [facility] [address] [place] [address] Echo Complete 05/24/24 1348 MR#: [id number] Acct: [id number] Name: LINDA PERALTA Rep #:[id number] : 1945 79 From: Jordan Gaitan Attending Dr: NIGHAT Burns atus: REG CLI Ordering Dr: Tucker Reyes Date: 05/24/24 Location: [facility] Sex: F C Admitted: Reason For [...] Dictated: 05/24/24 1348 Date Transcribed: 05/24/24 1604 Stringing Machine Operator: Signed [facility] Work Phone: INR Coag (BldC) [Relative ti me]Ordered By: Basim Velasquez on 05-24-2024 INR Coag (Bld) [Relative time] 2.7 {INR} [facility] Comment on above: Critical Value > 4.0 International normalized rat io (INR) measurement by fingerstickOrdered By: Basim Velasquez on 05-24-2024 INR Coag (BldC) [Relative time] 2.7 [facility] Comment on above: Critical Value > 4.0 PT Coag (Bld) [Time]Ordered By: Basim Velasquez on 05-24-2024 Bedside Prothrombin Time 28.1 SEC High 11.7-14.9 [facility] Protime w/INR Fingerstickon 05-24-2024 INR Coag (PPP) [Relative time] 2.7 {INR} Normal [facility] Comment on above: Result Comment: Crit ical Value > 4.0 Performed By: #### L 9200.0000 ####[facility] [address] [facility] [place], [place], [id number] Protime Coagsen 28.1 SEC High 11.7-14.9 [facility] Comment on above: Performed By: #### L 9200.0000 ####[facility] [address] [facility] [place], [place], [id number] Whole blood prothrombin time Ordered By: Basim Velasquez on 05-24-2024 PT Coag (Bld) [Time] 28.1 s High 11.7-14.9 [facility] Protime w/INR Fingerstickon 04-30-2024 INR Coag (PPP) [Relative time] 2.5 {INR} Normal [facility] Comment on above: Result Comment: Crit ical Value > 4.0 Performed By: #### L 9200.0000 ####[facility] [address] [place], [place], [address] Protime Coagsen 26.5 SEC High 11.7-14.9 [facility] Comment on above: Performed By: #### L 9200.0000 ####[facility] [facility] [address] [place], [place], [id number] Cardiology Visit Reporton Cardiology Visit Report Normal [facility] INR Coag (BldC) [Relative ti me]Ordered By: Basim Velasquez on 04-26-2024 INR Coag (Bld) [Relative time] 2.5 {INR} [facility] Comment on above: Critical Value > 4.0 International normalized rat io (INR) measurement by fingerstickOrdered By: Basim Velasquez on 04-26-2024 INR Coag (BldC) [Relative time] 2.5 [facility] Comment on above: Critical Value > 4.0 PT Coag (Bld) [Time]Ordered By: Basim Velasquez on 04-26-2024 Bedside Prothrombin Time 26.5 SEC High 11.7-14.9 [facility] Whole blood prothrombin time Ordered By: Basim Velasquez on 04-26-2024 PT Coag (Bld) [Time] 26.5 s High 11.7-14.9 [facility] Blood urea nitrogen (BUN)/cr eatinine ratioOrdered By: Jennifer Tarango on 04-03-2024 Urea nitrogen/Creatinine [Mass ratio] 21.8 mg/mg High 10-20 [facility] Carbon dioxide measurementOr dered By: Jennifer Tarango on 04-03-2024 CO2 [Moles/Vol] 26.0 mmol/L 21.0-32.0 [facility] Chloride measurementOrdered By: Jennifer Tarango on 04-03-2024 Chloride [Moles/Vol] 107 mmol/L 98-107 [facility] Estimated glomerular filtrat ion rate (GFR) AmericanOrdered By: Jennifer Tarango on 04-03-2024 Estimated GFR (MDRD) Amer 46 mL/min Low >60 [facility] Comment on above: GFR Calc Glomerular filtration rate ( GFR) estimationOrdered By: Jennifer Tarango on 04-03-2024 Estimated GFR (MDRD) Non-Af Amer 38 mL/min Low >60 [facility] Comment on above: Non- GFR Calc GFR/1.73 sq M.predicted among non-blacks MDRD (S/P/Bld) [Vol rate/Area] 38 mL/min/{1.73_m2} Low >60 [facility] Comment on above: Non- GFR Calc Glucose measurementOrdered B y: Jennifer Tarango on 04-03-2024 Glucose [Mass/Vol] 152 mg/dL High 74-106 [facility] Comment on above: Fasting Glucose resu lt greater than or equal to 126 mg/dL suggests DIABETES MELLITUS per A.D.A. criteria. Phosphorus measurementOrdere d By: Jennifer Tarango on 04-03-2024 Phosphorus Level 2.3 mg/dL Low 2.5-4.9 [facility] Potassium measurementOrdered By: Jennifer Tarango on 04-03-2024 Potassium [Moles/Vol] 4.2 mmol/L 3.5-5.1 [facility] Renal Profileon 04-03-2024 Albumin [Mass/Vol] 3.4 g/dL Normal 3.2-5.0 [facility] Comment on above: Performed By: #### L 500.3600 ####[facility] [address] [place], [address] BUN/CRE 21.8 RATIO High 10-20 [facility] Comment on above: Performed By: #### L 500.3600 ####[facility] [address] [place], [address] CA,Total 9.3 mg/dL Normal 8.5-10.1 [facility] Comment on above: Performed By: #### L 500.3600 ####[facility] [address] [place], [address] Chloride [Moles/Vol] 107 mmol/L Normal 98-107 [facility] Comment on above: Performed By: #### L 500.3600 ####[facility] [address] [place], [address] CO2 [Moles/Vol] 26.0 mmol/L Normal 21.0-32.0 [facility] Comment on above: Performed By: #### L 500.3600 ####[facility] [address] [place], [address] Creatinine [Mass/Vol] 1.42 mg/dL High 0.55-1.02 [facility] Comment on above: Result Comment: The validity of the calculated GFR GFRAA in patients over70 years has not been determined. Clinical correlation isessential. Performed By: #### L 500.3600 ####[facility] [address] [place], [address] EST GFR - AA 46 mL/min Low >60 [facility] Comment on above: Result Comment: Afri can [place] GFR Calc Performed By: #### L 500.3600 ####[facility] [address] [place], [address] GFR/1.73 sq M.predicted among non-blacks MDRD (S/P/Bld) [Vol rate/Area] 38 mL/min/{1.73_m2} Low >60 [facility] Comment on above: Result Comment: Non- GFR Calc Performed By: #### L 500.3600 ####[facility] [address] [place], [address] Glucose [Mass/Vol] 152 mg/dL High 74-106 [facility] Comment on above: Result Comment: Fast ing Glucose result greater than or equal to 126 mg/dLsuggests DIABETES MELLITUS per A.D.A. criteria. Performed By: #### L 500.3600 ####[facility] [address] [place], [address] Phosphate [Mass/Vol] 2.3 mg/dL Low 2.5-4.9 [facility] Comment on above: Performed By: #### L 500.3600 ####[facility] [address] [place], [address] Potassium [Moles/Vol] 4.2 mmol/L Normal 3.5-5.1 [facility] Comment on above: Performed By: #### L 500.3600 ####[facility] [address] [place], [address] Sodium [Moles/Vol] 140 mmol/L Normal 136-145 [facility] Comment on above: Performed By: #### L 500.3600 ####[facility] [address] [place], [address] Urea nitrogen [Mass/Vol] 31 mg/dL High 09-06 [facility] Comment on above: Performed By: #### L 500.3600 ####[facility] [address] [place], [address] Serum or plasma albumin csott urement (mass/volume)Ordered By: Jennifer Tarango on 04-03-2024 Albumin [Mass/Vol] 3.4 g/dL 3.2-5.0 [facility] Serum or plasma calcium scott urement (mass/volume)Ordered By: Jennifer Tarango on 04-03-2024 Calcium [Mass/Vol] 9.3 mg/dL 8.5-10.1 [facility] Serum or plasma creatinine m easurement (mass/volume)Ordered By: Jennifer Tarango on 04-03-2024 Creatinine [Mass/Vol] 1.42 mg/dL High 0.55-1.02 [facility] Comment on above: The validity of the calculated GFR & GFRAA in patients over 70 years has not been determined. Clinical correlation is essential. Serum or plasma urea nitroge n measurement (mass/volume)Ordered By: Jennifer Tarango on 04-03-2024 Urea nitrogen [Mass/Vol] 31 mg/dL High 09-06 [facility] Sodium levelOrdered By: Dustin Tarango on 04-03-2024 Sodium [Moles/Vol] 140 mmol/L 136-145 [facility] INR Coag (BldC) [Relative ti me]Ordered By: Basim Velasquez on 03-21-2024 INR Coag (Bld) [Relative time] 2.3 {INR} [facility] Comment on above: Critical Value > 4.0 International normalized rat io (INR) measurement by fingerstickOrdered By: Basim Velasquez on 03-21-2024 INR Coag (BldC) [Relative time] 2.3 [facility] Comment on above: Critical Value > 4.0 PT Coag (Bld) [Time]Ordered By: Basim Velasquez on 03-21-2024 Bedside Prothrombin Time 24.0 SEC High 11.7-14.9 [facility] Protime w/INR Fingerstickon 03-21-2024 INR Coag (PPP) [Relative time] 2.3 {INR} Normal [facility] Comment on above: Result Comment: Crit ical Value > 4.0 Performed By: #### L 9200.0000 ####[facility] [address] [place], [address] Protime Coagsen 24.0 SEC High 11.7-14.9 [facility] Comment on above: Performed By: #### L 9200.0000 ####[facility] [address] [place], [address] Whole blood prothrombin time Ordered By: Basim Velasquez on 03-21-2024 PT Coag (Bld) [Time] 24.0 s High 11.7-14.9 [facility] Prothrombin Time w/INRon INR Normal [facility] Comment on above: Result Comment: UNRULY MAYNARDTICK Performed By: #### L 300.3900, L500.3600 ####[facility] [address] [place], [address] PROTIME Normal 11.7-14.9 [facility] Comment on above: Result Comment: UNRULY ERSTICK Performed By: #### L 300.3900, L500.3600 ####[facility] [address] [place], [address] Protime w/INR Fingerstickon 02-28-2024 INR Coag (PPP) [Relative time] 3.1 {INR} Normal [facility] Comment on above: Result Comment: Crit ical Value > 4.0 Performed By: #### L 9200.0000 ####[facility] [address] [place], [address] Protime Coagsen 32.1 SEC High 11.7-14.9 [facility] Comment on above: Performed By: #### L 9200.0000 ####[facility] [address] [place], [address] Renal Profileon 02-28-2024 ALB Normal 3.2-5.0 [facility] Comment on above: Order Comment: RENAL IS FOR Result Comment: FING ERSTICK Performed By: #### L 300.3900, L500.3600 ####[facility] [address] [place], [address] BUN Normal 7-18 [facility] Comment on above: Order Comment: RENAL IS FOR Result Comment: FING ERSTICK Performed By: #### L 300.3900, L500.3600 ####[facility] [address] [place], [address] BUN/CRE Normal 10-20 [facility] Comment on above: Order Comment: RENAL IS FOR Result Comment: FING ERSTICK Performed By: #### L 300.3900, L500.3600 ####[facility] [address] [place], [address] CA,Total Normal 8.5-10.1 [facility] Comment on above: Order Comment: RENAL IS FOR Result Comment: FING ERSTICK Performed By: #### L 300.3900, L500.3600 ####[facility] [address] [place], [address] CL Normal 98-107 [facility] Comment on above: Order Comment: RENAL IS FOR Result Comment: FING ERSTICK Performed By: #### L 300.3900, L500.3600 ####[facility] [address] [place], [address] CO2 Normal 21.0-32.0 [facility] Comment on above: Order Comment: RENAL IS FOR Result Comment: FING ERSTICK Performed By: #### L 300.3900, L500.3600 ####[facility] [address] [place], [address] CREAT,SERUM Normal 0.55-1.02 [facility] Comment on above: Order Comment: RENAL IS FOR Result Comment: FING ERSTICK Performed By: #### L 300.3900, L500.3600 ####[facility] [address] [place], [address] EST GFR Normal >60 [facility] Comment on above: Order Comment: RENAL IS FOR Result Comment: FING ERSTICK Performed By: #### L 300.3900, L500.3600 ####[facility] [address] [place], [address] EST GFR - AA Normal >60 [facility] Comment on above: Order Comment: RENAL IS FOR Result Comment: FING ERSTICK Performed By: #### L 300.3900, L500.3600 ####[facility] [address] [place], [address] GLU Normal 74-106 [facility] Comment on above: Order Comment: RENAL IS FOR Result Comment: FING ERSTICK Performed By: #### L 300.3900, L500.3600 ####[facility] [address] [place], [address] PHOS Normal 2.5-4.9 [facility] Comment on above: Order Comment: RENAL IS FOR Result Comment: FING ERSTICK Performed By: #### L 300.3900, L500.3600 ####[facility] [address] [place], [address] Potassium Normal 3.5-5.1 [facility] Comment on above: Order Comment: RENAL IS FOR Result Comment: FING ERSTICK Performed By: #### L 300.3900, L500.3600 ####[facility] [address] [place], [address] Renal Profile Normal 136-145 [facility] Comment on above: Order Comment: RENAL IS FOR Result Comment: FING ERSTICK Performed By: #### L 300.3900, L500.3600 ####[facility] [address] [place], [address] CNPNon 02-22-2024 [facility] Telephone (INTMWS) -------- LINDA PERALTA ([id number]) 1945 F Date Time Provider Department 02/22/24 [...] her right thyroid. 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 Carlos Roe RN 02/22/2024 9:16 AM Signed Pt called and is notified of results and given providers message. Pt voices understanding. States her Digital Media Manager is Dr. Alexander Gregory in [place] at [facility]. She sees him for her [place]'s disease. Will fax this msg and CT [...] Status:Closed by CARLOS ROE on 02/22/24 Normal [facility] Basic metabolic 2000 panelon 02-01-2024 Anion gap [Moles/Vol] 12 mmol/L Normal 8-15 [facility] Comment on above: Order Comment: Speci men Type: BLOOD SPECIMENOrdering Facility: [facility] Address: [address] [place] [address] Performed By: #### 2 4321-2 ####[facility] [id number] [place] [id number] [place] Calcium [Mass/Vol] 9.9 mg/dL Normal 8.5-10.2 [facility] Comment on above: Order Comment: Speci men Type: BLOOD SPECIMENOrdering Facility: [facility] Address: [address] [place] [address] Performed By: #### 2 4321-2 ####[facility] MILLTOWNCLIA [id number] [place] [address] [place] Chloride [Moles/Vol] 108 mmol/L High 98-107 [facility] Comment on above: Order Comment: Speci men Type: BLOOD SPECIMENOrdering Facility: [facility] Address: [address] [place] [address] Performed By: #### 2 4321-2 ####[facility] MIRAMARNCLIA [id number] [place] [address] [place] CO2 [Moles/Vol] 23 mmol/L Normal 22-30 [facility] Comment on above: Order Comment: Speci men Type: BLOOD SPECIMENOrdering Facility: [facility] Address: [address] [place] [address] Performed By: #### 2 4321-2 ####[facility] [id number] [place] [address] [place] Creatinine [Mass/Vol] 1.36 mg/dL High 0.58-0.96 [facility] Comment on above: Order Comment: Speci men Type: BLOOD SPECIMENOrdering Facility: [facility] Address: [address] [place] [address] Performed By: #### 2 4321-2 ####[facility] MIRAMARNCLIA [id number] [address] OF [facility] Creatinine and Glomerular filtration rate.predicted panel (S/P/Bld) 39 mL/min/1.73m??? Low >=60 [facility] Comment on above: Order Comment: Speci men Type: BLOOD SPECIMENOrdering Facility: [facility] Address: [address] [place] [address] Result Comment: Marisabel mated Glomerular Filtration Rate [...] actual GFR. Performed By: #### 2 4321-2 ####[facility] MILLTOWNCLIA [id number] [place] [address] [place] Glucose [Mass/Vol] 93 mg/dL Normal 74-99 [facility] Comment on above: Order Comment: Speci men Type: BLOOD SPECIMENOrdering Facility: [facility] Address: [address] [place], [place] [address] Result Comment: The [place] Diabetes Association (ADA) provides guidance for cutoff [...] Standards of Medical Care in Diabetes 2016, [place] Diabetes Association. Diabetes Care. 2016.39(Suppl 1). Performed By: #### 2 4321-2 ####[facility] MILLTOWNCLIA [id number] [place] [address] [place] Potassium [Moles/Vol] 3.9 mmol/L Normal 3.7-5.1 [facility] Comment on above: Order Comment: Speci men Type: BLOOD SPECIMENOrdering Facility: [facility] Address: [address] [place] [address] Performed By: #### 2 4321-2 ####[facility] MILLTOWNCLIA [id number] [place] [address] [place] Sodium [Moles/Vol] 143 mmol/L Normal 136-144 [facility] Comment on above: Order Comment: Speci men Type: BLOOD SPECIMENOrdering Facility: [facility] Address: [address] [place] [address] Performed By: #### 2 4321-2 ####[facility] [address] MAL[place] [id number] [address] [place] Urea nitrogen [Mass/Vol] 39 mg/dL High 7-21 [facility] Comment on above: Order Comment: Speci men Type: BLOOD SPECIMENOrdering Facility: [facility] Address: [address] [place] [id number] Performed By: #### 2 4321-2 ####[facility] [place] [place] [id number] [address] [place] CT CHEST WO IVCONon 02-01-20 CT CHEST WO IVCON * * *Final Report* * * DATE OF EXAM: Feb 01 2024 11:20AM [facility]41 - CT CHEST WO IVCON / PROCEDURE [...] be communicated with the ordering provider via [employer] staff message or phone message by [employer] within 2 business days of report finalization. --END OF FINDING-- Stringing Machine Operator: ALEXANDRUB Transcribe Date/Time: Feb 06 2024 12:06P Dictated by : DESIRAE MOSELEY MD This examination was interpreted and the report reviewed and electronically signed by: DESIRAE MOSELEY MD on Feb 06 2024 12:23PM EST [id number] [id number] Invalid Interpretation Code [facility] Lipid 1996 panelon 4 Cholesterol [Mass/Vol] 169 mg/dL Normal <200 [facility] Comment on above: Order Comment: Speci men Type: BLOOD SPECIMENOrdering Facility: [facility] Address: [address] [place] [address] Result Comment: <200 mg/dL, Desirable 200-239 mg/dL, Borderline high >239 mg/dL, High Performed By: #### 2 4331-1 ####[facility] LABCLIA [id number] [place] [address] [place] [facility] [id number] [place] [address] [place] Cholesterol in HDL [Mass/Vol] 78 mg/dL Normal >39 [facility] Comment on above: Order Comment: Jody fairbanks Type: BLOOD SPECIMENOrdering Facility: [facility] Address: [address] [place] [address] Result Comment: 40-5 9 mg/dL, Acceptable >59 mg/dL, High: Negative risk factor for coronary heart disease <40 mg/dL, Low: Positive risk factor for coronary heart disease Performed By: #### 2 4331-1 ####[facility] LABCLIA [id number] [address] [id number] [address] [place] Cholesterol in LDL [Mass/Vol] 79 mg/dL Normal <100 [facility] Comment on above: Order Comment: Jody fairbanks Type: BLOOD SPECIMENOrdering Facility: [facility] Address: [address] [place] [address] Result Comment: <100 mg/dL, Optimal 100-129 mg/dL, Near optimal/above optimal 130-159 mg/dL, Borderline high 160-189 mg/dL, High >189 mg/dL, Very high Secondary prevention optimal LDL Cholesterol levels are recommended to be < 70 mg/dL Performed By: #### 2 4331-1 ####[facility] LABCLIA [id number] [id number] [place] [address] [place] Cholesterol in LDL/Cholesterol in HDL [Mass ratio] 1.01 {ratio} Normal <2.54 [facility] Comment on above: Order Comment: Jody tiki Type: BLOOD SPECIMENOrdering Facility: [facility] Address: [address] [place] [address] Result Comment: Bernardo villagomez: 1. National Cholesterol Education Program ATP III Guideline At-A-Glance Quick Desk Reference: National Heart, Lung, and Blood [place]. National Institutes of Health. 2001: NIH Publication No. 01-3305. 2. An International Atherosclerosis Society position paper: global recommendations for the management of dyslipidemia: executive summary, Atherosclerosis. 2014: 232(2):410-413. Performed By: #### 2 4331-1 ####[facility] LABCLIA [id number] [address] [id number] [place] [address] [place] Cholesterol in VLDL [Mass/Vol] 12 mg/dL Normal <30 [facility] Comment on above: Order Comment: Speci men Type: BLOOD SPECIMENOrdering Facility: [facility] Address: [address] [place] [address] Performed By: #### 2 4331-1 ####[facility] LABCLIA [id number] [id number] [place] [address] [place] Cholesterol non HDL [Mass/Vol] 91 mg/dL Normal <130 [facility] Comment on above: Order Comment: Speci men Type: BLOOD SPECIMENOrdering Facility: [facility] Address: [address] [place] [address] Result Comment: <130 mg/dL, Optimal 130-159 mg/dL, Near optimal/above optimal 160-189 mg/dL, Borderline high 190-219 mg/dL, High >219 mg/dL, Very high Secondary prevention optimal non HDL Cholesterol levels are recommended to be <100 mg/dL Performed By: #### 2 4331-1 ####[facility] LABCLIA [id number] [address] [id number] [place] [address] [place] Cholesterol.total/Chol esterol in HDL [Mass ratio] 2.17 {ratio} Normal <5.10 [facility] Comment on above: Order Comment: Speci men Type: BLOOD SPECIMENOrdering Facility: [facility] Address: [address] [place] [address] Performed By: #### 2 4331-1 ####[facility] LABCLIA [id number] [address] [id number] [place] [address] [place] FASTING TIME 12 hrs Normal [facility] Comment on above: Order Comment: Speci men Type: BLOOD SPECIMENOrdering Facility: [facility] Address: [address] [place] [address] Performed By: #### 2 4331-1 ####[facility] LABCLIA [id number] [address] [id number] [place] [address] [place] Triglyceride [Mass/Vol] 60 mg/dL Normal <150 [facility] Comment on above: Order Comment: Speci men Type: BLOOD SPECIMENOrdering Facility: [facility] Address: [address] [place] [address] Result Comment: <150 mg/dL, Normal 150-199 mg/dL, Borderline high 200-499 mg/dL, High >499 mg/dL, Very high Performed By: #### 2 4331-1 ####[facility] LABCLIA [id number] [address] [id number] [address] [place] CNOVon 01-23-2024 CNOV Office Visit (INTMWS ) -------- LINDA PERALTA ([id number]) 1945 F Date Time Provider Department 01/23/24 9:40 AM AMOS FLOYD INTMWS During your visit today, we recorded the following information about you: Temperature Pulse Respiration Blood pressure 97.5 degrees 88/minute 16/minute 128/76 Weight Height 64.5 kg 1.575 m Amos Flyod MD 01/23/2024 2:09 PM Signed Linda Peralta [...] - General Outside specialists seen: Cardiology-Dr. Ortega [facility] Nephrology- Dr. Jennifer Tarango Acoustic Intelligence Specialist- Dr. Isreal Carpoi Endocrinology- Dr. Alexander Gregory. Dermatology- Dr. Isha [...] Vision Screening: Follows with optometry/ophthalmology Right: Left: 20 Both: Assessment/Plan Medicare annual wellness visit, subsequent (Z00.00) - Counseled on healthy diet and regular exercise - Fall avoidance information provided - Personalized prevention plan provided - Vaccine recommendations. - Colorectal cancer screening reviewed. Even with colon polyps, she was no longer interested in routine screening. Amos Floyd MD 01/23/2024 2:09 PM Signed This note was created using [employer]. Subjective Linda Peralta is a 78 year [...] Use Vapin (more content not included)... Normal [facility] CNPNon 01-19-2024 CNPN Telephone (INTMWS) -------- TINOLINDA LOVETT ([id number]) 1945 F Date Time Provider Department 01/19/24 [...] you in caring for your patient. ? [facility] is committed to? providing safe care [...] Atopic neuroderm (more content not included)... Normal [facility] CNNURSEon 01-11-2024 CNNURSE Nurse Visit (FAMPWS) -------- LINDA PERALTA ([id number]) 1945 F Date Time Provider Department 01/11/24 2:00 PM [place] [facility] During your visit today, we recorded the [...] Status:Closed by DESIRAE ARZOLA on 01/11/24 Normal [facility] Protime w/INR Fingerstickon 01-04-2024 INR Coag (PPP) [Relative time] 2.8 {INR} Normal [facility] Comment on above: Result Comment: Crit ical Value > 4.0 Performed By: #### L 9200.0000 ####[facility] [id number] [place], [place], [id number] Protime Coagsen 29.2 SEC High 11.7-14.9 [facility] Comment on above: Performed By: #### L 9200.0000 ####[facility] [id number] [place], [address] XR CHEST 2V FRONTAL/LATon XR CHEST 2V [...] be communicated with the ordering provider via [employer] staff message by [employer] within 2 business days of report finalization. Stringing Machine Operator: PSCB Transcribe Date/Time: Jan 01 2024 1:57P Dictated by : ELIZABETH GEORGE MD This examination was interpreted and the report reviewed and electronically signed by: ELIZABETH GEORGE MD on Jan 01 2024 1:58PM EST [id number] ACTIONABLE Invalid Interpretation Code [facility] XR Chest PA and LateralOrder ed By: Cc Provider on 01-01-2024 Interpretation and review of laboratory results Abnormal [facility] Radiology Result ACTIONABLE Abnormal [facility] Comment on above: This report contains [...] contact your provider for the next steps. [facility] XR Chest PA and Lateralon IMPRESSION: Redemonstration of 2.1 cm nodular density in the right lower lobe. Incidental Finding: Follow-up Acuity: Incidental Finding: Suspicious appearing incidentally detected nodular lung density on CXR Routing Code: RI_1 Recommendation: CT Chest WO IVCON Time Frame: in 4 weeks COMMUNICATION:? Results will be communicated with the ordering provider via [employer] staff message by [employer] within 2 business days of report finalization. Stringing Machine Operator: STEPAN Transcribe Date/Time: Jan 01 2024 1:57P Dictated by : ELIZABETH GEORGE MD This examination was interpreted and the report reviewed and electronically signed by: ELIZABETH GEORGE MD on Jan 01 2024 1:58PM [facility] * * *Final Report* [...] the thoracic spine. DIVISION OF RADIOLOGY Provider, [facility] - 01/01/2024 * * *Final Report* [...] be communicated with the ordering provider via [employer] staff message by [employer] within 2 business days of report finalization. Stringing Machine Operator: STEPAN Transcribe Date/Time: Jan 01 2024 1:57P Dictated by : ELIZABETH GEORGE MD This examination was interpreted and the report reviewed and electronically signed by: ELIZABETH GEORGE MD on Jan 01 2024 1:58PM EST [facility] Radiology Study observation (narrative) [facility] Capillary blood internationa l normalized ratio (INR)Ordered By: Basim Velasquez on 06-19-2023 INR Coag (BldC) [Relative time] 2.0 [facility] Comment on above: Critical Value > 4.0 Whole blood prothrombin time Ordered By: Basim Velasquez on 06-19-2023 PT Coag (Bld) [Time] 21.3 s 11.7-14.9 [facility] Capillary blood internationa l normalized ratio (INR)Ordered By: Basim Velasquez on 05-31-2023 INR Coag (BldC) [Relative time] 2.1 [facility] Comment on above: Critical Value > 4.0 Whole blood prothrombin time Ordered By: Basim Velasquez on 05-31-2023 PT Coag (Bld) [Time] 22.2 s 11.7-14.9 [facility] 1,25-dihydroxyvitamin D3 [Ma ss/Vol]on 05-26-2023 Interpretation and review of laboratory results Abnormal [facility] Basic metabolic 2000 panelon 05-26-2023 Anion gap [Moles/Vol] 11 mmol/L 10 - 2 0 mmol/L [facility] Calcium [Mass/Vol] 8.6 mg/dL 8.6 - 10. 3 mg/dL [facility] Chloride [Moles/Vol] 112 mmol/L High 98 - 10 7 mmol/L [facility] CO2 [Moles/Vol] 22 mmol/L 21 - 32 mmol/L [facility] Creatinine [Mass/Vol] 1.60 mg/dL High 0.50 - 1.05 mg/dL [facility] GFR/1.73 sq M.predicted among non-blacks MDRD (S/P/Bld) [Vol rate/Area] 32 mL/min/{1.73_m2} Low - PINF [facility] Comment on above: Calculations of marisabel mated GFR are performed using the 2020 CKD-EPI Study Refit equation without the race variable for the IDMS-Traceable creatinine methods. https://jasn.asnjournals.org/content//ASN.01947 06946 Glucose [Mass/Vol] 84 mg/dL 74 - 99 mg/dL [facility] Interpretation and review of laboratory results Abnormal [facility] Potassium [Moles/Vol] 4.3 mmol/L 3.5 - 5.3 mmol/L [facility] Sodium [Moles/Vol] 141 mmol/L 136 - 145 mmol/L [facility] Urea nitrogen [Mass/Vol] 25 mg/dL High 6 - 23 mg/dL [facility] Anion gap [Moles/Vol] 11 mmol/L Normal 10-20 [facility] Comment on above: Performed By: #### 1 994-3 #### THELMA DENNISON ([id number]) [facility] ([facility]) [address] [place] [address] Calcium [Mass/Vol] 8.6 mg/dL Normal 8.6-10.3 [facility] Comment on above: Performed By: #### 1 994-3 #### THELMA DENNISON ([id number]) [facility] ([facility]) [address] [place] [address]37 Chloride [Moles/Vol] 112 mmol/L High 98-107 [facility] Comment on above: Performed By: #### 1 994-3 #### THELMA DENNISON ([id number]) [facility] ([facility]) [address] [place] [address] CO2 [Moles/Vol] 22 mmol/L Normal 21-32 [facility] Comment on above: Performed By: #### 1 994-3 #### THELMA DENNISON ([id number]) [facility] ([facility]) [address] [place] [address] Creatinine [Mass/Vol] 1.60 mg/dL High 0.50-1.05 [facility] Comment on above: Performed By: #### 1 994-3 #### THELMA DENNISON ([id number]) [facility] ([facility]) [address] [place] [address]11 Glomerular filtration rate/1.73 sq M.predicted 32 mL/min/1.73m*2 Low >60 [facility] Comment on above: Result Comment: Calc ulations of estimated GFR are performed using the 2020 CKD-EPI Study Refit equation without the race variable for the IDMS-Traceable creatinine methods. https://jasn.asnjournals.org/content/early//ASN.57032 13920 Performed By: #### 1 994-3 #### THELMA DENNISON ([id number]) [facility] ([facility]) [address] [place] [address] Glucose [Mass/Vol] 84 mg/dL Normal 74-99 [facility] Comment on above: Performed By: #### 1 994-3 #### THELMA MONGE RIO ORTEGA ([id number]) [facility] ([facility]) [address] [place] [address] Potassium [Moles/Vol] 4.3 mmol/L Normal 3.5-5.3 [facility] Comment on above: Performed By: #### 1 994-3 #### DELORESIBLIBRADO MONGE RIO ORTEGA ([id number]) [facility] ([facility]) [address] [place] [address] Sodium [Moles/Vol] 141 mmol/L Normal 136-145 [facility] Comment on above: Performed By: #### 1 994-3 #### THELMA DENNISON ([id number]) [facility] ([facility]) [address] [place] [address] Urea nitrogen [Mass/Vol] 25 mg/dL High 6-23 [facility] Comment on above: Performed By: #### 1 994-3 #### THELMA DENNISON ([id number]) [facility] ([facility]) [address] [place] [address] CBC panel Auto (Bld)on 05-25 Erythrocyte distribution width (RBC) [Ratio] 14.5 % 11.5 - 14.5 % [facility] Hematocrit (Bld) [Volume fraction] 41.0 % 36.0 - 46.0 % [facility] Hemoglobin (Bld) [Mass/Vol] 13.4 g/dL 12.0 - 16.0 g/dL [facility] Interpretation and review of laboratory results Abnormal [facility] MCH (RBC) [Entitic mass] 29.4 pg 26.0 - 34.0 pg [facility] MCHC (RBC) [Mass/Vol] 32.7 g/dL 32.0 - 36.0 g/dL [facility] MCV (RBC) [Entitic vol] 90 fL 80 - 100 fL [facility] Nucleated RBC/100 WBC (Bld) [Ratio] 0.0 % [facility] Platelets (Bld) [#/Vol] 251 10*3/uL [facility] RBC (Bld) [#/Vol] 4.56 10*6/uL [facility] WBC (Bld) [#/Vol] 12.9 10*3/uL High [facility] Erythrocyte distribution width (RBC) [Ratio] 14.5 % Normal 11.5-14.5 [facility] Comment on above: Performed By: #### 3 4529-8 #### THELMA DENNISON ([id number]) [facility] ([facility]) [address] [place] [address] Hematocrit (Bld) [Volume fraction] 41.0 % Normal 36.0-46.0 [facility] Comment on above: Performed By: #### 3 4529-8 #### THELMA DENNISON ([id number]) [facility] ([facility]) [address] [place] [address] Hemoglobin (Bld) [Mass/Vol] 13.4 g/dL Normal 12.0-16.0 [facility] Comment on above: Performed By: #### 3 4529-8 #### THELMA DENNISON ([id number]) [facility] ([facility]) [address] [place] [address] 64487 MCH (RBC) [Entitic mass] 29.4 pg Normal 26.0-34.0 [facility] Comment on above: Performed By: #### 3 4529-8 #### THELMA DENNISON ([id number]) [facility] ([facility]) [address] [place] [address]29 MCHC (RBC) [Mass/Vol] 32.7 g/dL Normal 32.0-36.0 [facility] Comment on above: Performed By: #### 3 4529-8 #### THELMA DENNISON ([id number]) [facility] ([facility]) [address] [place] [address] 91893 MCV (RBC) [Entitic vol] 90 fL Normal 80-100 [facility] Comment on above: Performed By: #### 3 4529-8 #### THELMA DENNISON ([id number]) [facility] ([facility]) [address] [place] [address] 45494 Nucleated RBC/100 WBC (Bld) [Ratio] 0.0 /100 WBCs Normal 0.0-0.0 [facility] Comment on above: Performed By: #### 3 4529-8 #### THELMA DENNISON ([id number]) [facility] ([facility]) [address] [place] [address] 92168 Platelets (Bld) [#/Vol] 251 x10*3/uL Normal 150-450 [facility] Comment on above: Performed By: #### 3 4529-8 #### THELMA DENNISON ([id number]) [facility] ([facility]) [address] [place] [address] RBC (Bld) [#/Vol] 4.56 x10*6/uL Normal 4.00-5.20 [facility] Comment on above: Performed By: #### 3 4529-8 #### THELMA DENNISON ([id number]) [facility] ([facility]) [address] [place] [address] WBC (Bld) [#/Vol] 12.9 x10*3/uL High 4.4-11.3 [facility] Comment on above: Performed By: #### 3 4529-8 #### THELMA DENNISON ([id number]) [facility] ([facility]) [address] [place] [address] Coagulation tissue factor in ducedon 05-26-2023 PT Coag (PPP) [Time] 22.7 s High 9.8-12.8 [facility] Comment on above: Performed By: #### 3 4529-8 #### THELMA DENNISON ([id number]) [facility] ([facility]) [address] [place] [address] No Panel Informationon 05-25 Extra Tube Hold for add-ons. [facility] Comment on above: Auto resulted. [facility] PT Coag (PPP) [Time]on 05-25 INR Coag (PPP) [Relative time] 2.0 High 0.9-1.1 [facility] Comment on above: Performed By: #### 3 4529-8 #### THELMA DENNISON ([id number]) [facility]) [address] [place] [address] INR Coag (PPP) [Relative time] 2.0 {INR} High 0.9 - 1.1 [facility] Interpretation and review of laboratory results Abnormal [facility] Protime-INRon 05-26-2023 PT Coag (PPP) [Time] 22.7 s High [facility] Vitamin D 1,25 Dihydroxy (fo r eval of hypercalcemia)on 05-26-2023 1,25-dihydroxyvitamin D3 [Mass/Vol] 179.0 pg/mL High 19.9 - 79.3 pg/mL [facility] Comment on above: INTERPRETIVE INFORMA TION: Vitamin D, 1,25-Dihydroxy This test is primarily indicated during patient evaluation for hypercalcemia and renal failure. A normal result does not rule out Vitamin D deficiency. The recommended test for diagnosing Vitamin D deficiency is Vitamin D 25-hydroxy. Performed By: [employer] [address] [place] [address] Portfolio Strategist: Jefferson Kerr MD, PhD CLIA Number: [id number] 25-hydroxyvitamin D3 [Mass/V ol]on 05-25-2023 Interpretation and review of laboratory results Normal [facility] Deficiency: < 20 ng/ ml Insufficiency: 20-29 ng/ml Sufficiency: 30-100 ng/ml This assay accurately quantifies the sum of Vitamin D3, 25-Hydroxy and Vitamin D2,25-Hydroxy. [facility] Basic metabolic 2000 panelon 05-25-2023 Anion gap [Moles/Vol] 11 mmol/L Normal 10-20 [facility] Comment on above: Performed By: #### 3 4529-8 #### THELMA DENNISON ([id number]) [facility]) [address] [place] [address] Calcium [Mass/Vol] 9.9 mg/dL Normal 8.6-10.3 [facility] Comment on above: Performed By: #### 3 4529-8 #### THELMA DENNISON ([id number]) [facility] ([facility]) [address] [place] [address] Chloride [Moles/Vol] 109 mmol/L High 98-107 [facility] Comment on above: Performed By: #### 3 4529-8 #### THELMA DENNISON (91955) [facility]) [address] [place] [address] CO2 [Moles/Vol] 23 mmol/L Normal 21-32 [facility] Comment on above: Performed By: #### 3 4529-8 #### THELMA DENNISON ([id number]) [facility] ([facility]) [address] [place] [address]96 Creatinine [Mass/Vol] 1.80 mg/dL High 0.50-1.05 [facility] Comment on above: Performed By: #### 3 4529-8 #### THELMA DENNISON ([id number]) [facility] ([facility]) [address] [place] [address] 25350 Glomerular filtration rate/1.73 sq M.predicted 28 mL/min/1.73m*2 Low >60 [facility] Comment on above: Result Comment: Calc ulations of estimated GFR are performed using the 2020 CKD-EPI Study Refit equation without the race variable for the IDMS-Traceable creatinine methods. https://jasn.asnjournals.org/content/early//ASN.52300 95442 Performed By: #### 3 4529-8 #### THELMA DENNISON ([id number]) [facility] ([facility]) [address] [place] [address] 16622 Glucose [Mass/Vol] 135 mg/dL High 74-99 [facility] Comment on above: Performed By: #### 3 4529-8 #### THELMA DENNISON ([id number]) [facility] ([facility]) [address] [place] [address] 88315 Potassium [Moles/Vol] 3.7 mmol/L Normal 3.5-5.3 [facility] Comment on above: Performed By: #### 3 4529-8 #### THELMA DENNISON ([id number]) [facility] ([facility]) [address] [place] [address] Sodium [Moles/Vol] 139 mmol/L Normal 136-145 [facility] Comment on above: Performed By: #### 3 4529-8 #### THELMA MARIPOSA VIVAS ([id number]) [facility] ([facility]) [address] [place] [address] Urea nitrogen [Mass/Vol] 33 mg/dL High 6-23 [facility] Comment on above: Performed By: #### 3 4529-8 #### THELMA MARIPOSA VIVAS ([id number]) [facility] ([facility]) [address] [place] [address] Anion gap [Moles/Vol] 11 mmol/L 10 - 2 0 mmol/L [facility] Calcium [Mass/Vol] 9.9 mg/dL 8.6 - 10. 3 mg/dL [facility] Chloride [Moles/Vol] 109 mmol/L High 98 - 10 7 mmol/L [facility] CO2 [Moles/Vol] 23 mmol/L 21 - 32 mmol/L [facility] Creatinine [Mass/Vol] 1.80 mg/dL High 0.50 - 1.05 mg/dL [facility] GFR/1.73 sq M.predicted among non-blacks MDRD (S/P/Bld) [Vol rate/Area] 28 mL/min/{1.73_m2} Low - PINF [facility] Comment on above: Calculations of marisabel mated GFR are performed using the 2020 CKD-EPI Study Refit equation without the race variable for the IDMS-Traceable creatinine methods. https://jasn.asnjournals.org/content//ASN.71392 28160 Glucose [Mass/Vol] 135 mg/dL High 74 - 99 mg/dL [facility] Interpretation and review of laboratory results Abnormal [facility] Potassium [Moles/Vol] 3.7 mmol/L 3.5 - 5.3 mmol/L [facility] Sodium [Moles/Vol] 139 mmol/L 136 - 145 mmol/L [facility] Urea nitrogen [Mass/Vol] 33 mg/dL High 6 - 23 mg/dL [facility] Calcidiolon 05-25-2023 25-hydroxyvitamin D3 [Mass/Vol] 45 ng/mL Normal 30-100 [facility] Comment on above: Order Comment: The A PTT is no longer used for monitoring Unfractionated Heparin Therapy. For monitoring Heparin Therapy, use the Heparin Assay. Performed By: #### 3 4529-8 #### THELMA DENNISON ([id number]) [facility] ([facility]) [address] [place] [address] Calcium, ionizedon Calcium.ionized (Bld) [Moles/Vol] 1.32 mmol/L 1.1 - 1.33 mmol/L [facility] Comment on above: The performance domi acteristics of ionized calcium tested in heparinized plasma or serum have been validated by the individual laboratory site where testing is performed. Testing on heparinized plasma or serum is not approved by the FDA; however, such approval is not necessary. Calcium.ionizedon 05-25-2023 Calcium.ionized (Bld) [Moles/Vol] 1.32 mmol/L Normal 1.1-1.33 [facility] Comment on above: Result Comment: The performance characteristics of ionized calcium tested in heparinized plasma or serum have been validated by the individual laboratory site where testing is performed. Testing on heparinized plasma or serum is not approved by the FDA; however, such approval is not necessary. Performed By: #### 3 4529-8 #### THELMA DENNISON ([id number]) [facility]) [address] [place] [address] Calcium.ionized (Bld) [Moles /Vol]on 05-25-2023 Interpretation and review of laboratory results Normal [facility] Coagulation tissue factor in ducedon 05-25-2023 PT Coag (PPP) [Time] 23.0 s High 9.8-12.8 [facility] Comment on above: Performed By: #### 3 4529-8 #### THELMA DENNISON ([id number]) [facility]) [address] [place] [address] HbA1c (Bld) [Mass fraction]o n 05-25-2023 Average glucose Estimated from glycated hemoglobin (Bld) [Mass/Vol] 105 mg/dL Not Established [facility] Diagnosis of Diabetes-Adults Non-Diabetic: < or = 5.6% Increased risk for developing diabetes: 5.7-6.4% Diagnostic of diabetes: > or = 6.5% Monitoring of Diabetes Age (y)..................... .. Therapeutic Goal (%) Adults: >18..................... ....<7.0 Pediatrics: 13-18................... <7.5 Pediatrics: 7-12.................... <8.0 Pediatrics: 0-6..................... 7.5-8.5 [place] [employer]. Diabetes Care 33(S1), Feb 2009 [facility] Average glucose Estimated from glycated hemoglobin (Bld) [Mass/Vol] 105 mg/dL Normal Not Established [facility] Comment on above: Order Comment: The A PTT is no longer used for monitoring Unfractionated Heparin Therapy. For monitoring Heparin Therapy, use the Heparin Assay. Performed By: #### 3 4529-8 #### THELMA DENNISON (59228) [facility] ([facility]) [address] [place] [address] Hemoglobin A1Con 05-25-2023 HbA1c (Bld) [Mass fraction] 5.3 % see below [facility] Hemoglobin A1c/Hemoglobin.to gage 05-25-2023 HbA1c (Bld) [Mass fraction] 5.3 % Normal see below [facility] Comment on above: Order Comment: The A PTT is no longer used for monitoring Unfractionated Heparin Therapy. For monitoring Heparin Therapy, use the Heparin Assay. Performed By: #### 3 4529-8 #### THELMA DENNISON ([id number]) [facility] ([facility]) [address] [place] [address] No Panel Informationon 05-24 Extra Tube Hold for add-ons. [facility] Comment on above: Auto resulted. [facility] PT Coag (PPP) [Time]on 05-24 INR Coag (PPP) [Relative time] 2.0 High 0.9-1.1 [facility] Comment on above: Performed By: #### 3 4529-8 #### THELMA DENNISON ([id number]) [facility] ([facility]) [address] [place] [address] INR Coag (PPP) [Relative time] 2.0 {INR} High 0.9 - 1.1 [facility] Interpretation and review of laboratory results Abnormal [facility] PTH, Intacton 05-25-2023 Parathyrin.intact [Mass/Vol] 16.3 pg/mL Low 18.5 - 88.0 pg/mL [facility] Parathyrin related proteinon 05-25-2023 Parathyrin related protein [Moles/Vol] 1.1 pmol/L Normal < or = 4.2 [facility] Comment on above: Result Comment: ADDITIONAL INFORMATION This test was developed and its performance characteristics determined by [facility] in a manner consistent with CLIA requirements. This test has not been cleared or approved by the U.S. Food and Drug Administration. Test Performed by: [facility] [place] [address] Rail Technician: Sunny Triplett M.D. Ph.D.; CLIA# [id number] Performed By: #### 1 994-3 #### THELMA DENNISON ([id number]) [facility] ([facility]) [address] [place] [address] Parathyrin.intacton 04-04-20 24 Parathyrin.intact [Mass/Vol] 16.3 pg/mL Low 18.5-88.0 [facility] Comment on above: Performed By: #### 3 4529-8 #### THELMA DENNISON ([id number]) [facility] ([facility]) [address] [place] [address] Parathyrin.intact [Mass/Vol] on 05-25-2023 Interpretation and review of laboratory results Abnormal [facility] Phosphateon 05-25-2023 Phosphate [Mass/Vol] 3.2 mg/dL Normal 2.5-4.9 [facility] Comment on above: Result Comment: The performance characteristics of phosphorus testing in heparinized plasma have been validated by the individual laboratory site where testing is performed. Testing on heparinized plasma is not approved by the FDA; however, such approval is not necessary. Performed By: #### 3 4529-8 #### THELMA DENNISON ([id number]) [facility] ([facility]) [address] [place] [address] Phosphate [Mass/Vol]on 05-24 Interpretation and review of laboratory results Normal [facility] Phosphoruson 05-25-2023 Phosphate [Mass/Vol] 3.2 mg/dL 2.5 - 4 .9 mg/dL [facility] Comment on above: The performance domi acteristics of phosphorus testing in heparinized plasma have been validated by the individual laboratory site where testing is performed. Testing on heparinized plasma is not approved by the FDA; however, such approval is not necessary. Protime-INRon 05-25-2023 PT Coag (PPP) [Time] 23.0 s High [facility] Vitamin D 25-Hydroxy,Total ( for eval of Vitamin D levels)on 05-25-2023 25-hydroxyvitamin D3 [Mass/Vol] 45 ng/mL 30 - 100 ng/mL [facility] CBC W Auto Differential pane l (Bld)on 05-24-2023 Basophils (Bld) [#/Vol] 0.06 x10*3/uL Normal 0.00-0.10 [facility] Comment on above: Performed By: #### 5 7021-8 #### THELMA DENNISON ([id number]) [facility] ([facility]) [address] [place] [address] 95[address] Basophils/100 WBC (Bld) 0.6 % Normal 0.0-2.0 [facility] Comment on above: Performed By: #### 5 7021-8 #### THELMA DENNISON ([id number]) [facility] ([facility]) [address] [place] [address] 95164 Eosinophils (Bld) [#/Vol] 1.08 x10*3/uL High 0.00-0.40 [facility] Comment on above: Performed By: #### 5 7021-8 #### THELMA DENNISON ([id number]) [facility] ([facility]) [address] [place] [address] 20824 Eosinophils/100 WBC (Bld) 11.2 % Normal 0.0-6.0 [facility] Comment on above: Performed By: #### 5 7021-8 #### THELMA DENNISON ([id number]) [facility] (C) [address] [place] [address] 50890 Erythrocyte distribution width (RBC) [Ratio] 14.2 % Normal 11.5-14.5 [facility] Comment on above: Performed By: #### 5 7021-8 #### THELMA DENNISON ([id number]) [facility] ([facility]) [address] [place] [address] 36951 Hematocrit (Bld) [Volume fraction] 39.8 % Normal 36.0-46.0 [facility] Comment on above: Performed By: #### 5 7021-8 #### THELMA DENNISON ([id number]) [facility] ([facility]) [address] [place] [address] 38873 Hemoglobin (Bld) [Mass/Vol] 13.5 g/dL Normal 12.0-16.0 [facility] Comment on above: Performed By: #### 5 7021-8 #### THELMA DENNISON ([id number]) [facility] ([facility]) [address] [place] [address] 55374 Immature granulocytes (Bld) [#/Vol] 0.09 x10*3/uL Normal 0.00-0.50 [facility] Comment on above: Performed By: #### 5 7021-8 #### THELMA DENNISON ([id number]) [facility] ([facility]) [address] [place] [address] 22444 Immature granulocytes/100 WBC (Bld) 0.9 % Normal 0.0-0.9 [facility] Comment on above: Result Comment: Linda ture Granulocyte Count (IG) includes promyelocytes, myelocytes and metamyelocytes but does not include bands. Percent differential counts (%) should be interpreted in the context of the absolute cell counts (cells/UL). Performed By: #### 5 7021-8 #### THELMA DENNISON ([id number]) [facility] ([facility]) [address] [place] [address] 92263 Lymphocytes (Bld) [#/Vol] 1.90 x10*3/uL Normal 0.80-3.00 [facility] Comment on above: Performed By: #### 5 7021-8 #### THELMA DENNISON ([id number]) [facility] ([facility]) [address] [place] [address] 16133 Lymphocytes/100 WBC (Bld) 19.8 % Normal 13.0-44.0 [facility] Comment on above: Performed By: #### 5 7021-8 #### THELMA DENNISON ([id number]) [facility] ([facility]) [address] [place] [address] 33150 MCH (RBC) [Entitic mass] 29.3 pg Normal 26.0-34.0 [facility] Comment on above: Performed By: #### 5 7021-8 #### THELMA DENNISON ([id number]) [facility] ([facility]) [address] [place] [address] 90008 MCHC (RBC) [Mass/Vol] 33.9 g/dL Normal 32.0-36.0 [facility] Comment on above: Performed By: #### 5 7021-8 #### THELMA DENNISON ([id number]) [facility] ([facility]) [address] [place] [address] 60866 MCV (RBC) [Entitic vol] 86 fL Normal 80-100 [facility] Comment on above: Performed By: #### 5 7021-8 #### THELMA DENNISON ([id number]) [facility] ([facility]) [address] [place] [address] 09669 Monocytes (Bld) [#/Vol] 0.96 x10*3/uL High 0.05-0.80 [facility] Comment on above: Performed By: #### 5 7021-8 #### THELMA DENNISON (00763) [facility] ([facility]) [address] [place] [address] 89143 Monocytes/100 WBC (Bld) 10.0 % Normal 2.0-10.0 [facility] Comment on above: Performed By: #### 5 7021-8 #### THELMA DENNISON ([id number]) [facility] ([facility]) [address] [place] [address] 77932 Neutrophils (Bld) [#/Vol] 5.52 x10*3/uL High 1.60-5.50 [facility] Comment on above: Result Comment: Perc ent differential counts (%) should be interpreted in the context of the absolute cell counts (cells/uL). Performed By: #### 5 7021-8 #### THELMA DENNISON ([id number]) [facility] ([facility]) [address] [place] [address] 45940 Neutrophils/100 WBC (Bld) 57.5 % Normal 40.0-80.0 [facility] Comment on above: Performed By: #### 5 7021-8 #### THELMA DENNISON ([id number]) [facility] ([facility]) [address] [place] [address] 87980 Nucleated RBC/100 WBC (Bld) [Ratio] 0.0 /100 WBCs Normal 0.0-0.0 [facility] Comment on above: Performed By: #### 5 7021-8 #### THELMA DENNISON ([id number]) [facility] ([facility]) [address] [place] [address] 42120 Platelets (Bld) [#/Vol] 249 x10*3/uL Normal 150-450 [facility] Comment on above: Performed By: #### 5 7021-8 #### THELMA DENNISON ([id number]) [facility] ([facility]) [address] [place] [address] 33033 RBC (Bld) [#/Vol] 4.61 x10*6/uL Normal 4.00-5.20 [facility] Comment on above: Performed By: #### 5 7021-8 #### THELMA DENNISON ([id number]) [facility] ([facility]) [address] [place] [address] 04130 WBC (Bld) [#/Vol] 9.6 x10*3/uL Normal 4.4-11.3 [facility] Comment on above: Performed By: #### 5 7021-8 #### THELMA DENNISON ([id number]) [facility] ([facility]) [address] [place] [address] 75215 Basophils (Bld) [#/Vol] 0.06 10*3/uL [facility] Basophils/100 WBC (Bld) 0.6 % 0.0 - 2.0 % [facility] Eosinophils (Bld) [#/Vol] 1.08 10*3/uL High [facility] Eosinophils/100 WBC (Bld) 11.2 % 0.0 - 6.0 % [facility] Erythrocyte distribution width (RBC) [Ratio] 14.2 % 11.5 - 14.5 % [facility] Hematocrit (Bld) [Volume fraction] 39.8 % 36.0 - 46.0 % [facility] Hemoglobin (Bld) [Mass/Vol] 13.5 g/dL 12.0 - 16.0 g/dL [facility] Immature granulocytes (Bld) [#/Vol] 0.09 10*3/uL [facility] Immature granulocytes/100 WBC (Bld) 0.9 % 0.0 - 0.9 % [facility] Comment on above: Immature Granulocyte Count (IG) includes promyelocytes, myelocytes and metamyelocytes but does not include bands. Percent differential counts (%) should be interpreted in the context of the absolute cell counts (cells/UL). Interpretation and review of laboratory results Abnormal [facility] Lymphocytes (Bld) [#/Vol] 1.90 10*3/uL [facility] Lymphocytes/100 WBC (Bld) 19.8 % 13.0 - 44.0 % [facility] MCH (RBC) [Entitic mass] 29.3 pg 26.0 - 34.0 pg [facility] MCHC (RBC) [Mass/Vol] 33.9 g/dL 32.0 - 36.0 g/dL [facility] MCV (RBC) [Entitic vol] 86 fL 80 - 100 fL [facility] Monocytes (Bld) [#/Vol] 0.96 10*3/uL [facility] Monocytes/100 WBC (Bld) 10.0 % 2.0 - 10.0 % [facility] Neutrophils (Bld) [#/Vol] 5.52 10*3/uL [facility] Comment on above: Percent differential counts (%) should be interpreted in the context of the absolute cell counts (cells/uL). Neutrophils/100 WBC (Bld) 57.5 % 40.0 - 80.0 % [facility] Nucleated RBC/100 WBC (Bld) [Ratio] 0.0 % [facility] Platelets (Bld) [#/Vol] 249 10*3/uL [facility] RBC (Bld) [#/Vol] 4.61 10*6/uL [facility] WBC (Bld) [#/Vol] 9.6 10*3/uL [facility] Basophils (Bld) [#/Vol] 0.07 x10*3/uL Normal 0.00-0.10 [facility] Comment on above: Performed By: #### 5 7021-8 #### THELMA DENNISON ([id number]) [facility] ([facility]) [address] [place] [address] 44036 Basophils/100 WBC (Bld) 0.8 % Normal 0.0-2.0 [facility] Comment on above: Performed By: #### 5 7021-8 #### THELMA DENNISON (84097) [facility] ([facility]) [address] [place] [address] 46662 Eosinophils (Bld) [#/Vol] 1.09 x10*3/uL High 0.00-0.40 [facility] Comment on above: Performed By: #### 5 7021-8 #### THELMA DENNISON ([id number]) [facility] ([facility]) [address] [place] [address] 08536 Eosinophils/100 WBC (Bld) 12.0 % Normal 0.0-6.0 [facility] Comment on above: Performed By: #### 5 7021-8 #### THELMA DENNISON (68714) [facility] ([facility]) [address] [place] [address] 40650 Erythrocyte distribution width (RBC) [Ratio] 14.1 % Normal 11.5-14.5 [facility] Comment on above: Performed By: #### 5 7021-8 #### THELMA DENNISON (27582) [facility] ([facility]) [address] [place] [address] 52184 Hematocrit (Bld) [Volume fraction] 41.4 % Normal 36.0-46.0 [facility] Comment on above: Performed By: #### 5 7021-8 #### THELMA DENNISON ([id number]) [facility] ([facility]) [address] [place] [address] 15267 Hemoglobin (Bld) [Mass/Vol] 14.1 g/dL Normal 12.0-16.0 [facility] Comment on above: Performed By: #### 5 7021-8 #### THELMA DENNISON ([id number]) [facility] ([facility]) [address] [place] [address] 39459 Immature granulocytes (Bld) [#/Vol] 0.12 x10*3/uL Normal 0.00-0.50 [facility] Comment on above: Performed By: #### 5 7021-8 #### THELMA DENNISON (50954) [facility] ([facility]) [address] [place] [address] 32022 Immature granulocytes/100 WBC (Bld) 1.3 % High 0.0-0.9 [facility] Comment on above: Result Comment: Linda ture Granulocyte Count (IG) includes promyelocytes, myelocytes and metamyelocytes but does not include bands. Percent differential counts (%) should be interpreted in the context of the absolute cell counts (cells/UL). Performed By: #### 5 7021-8 #### THELMA DENNISON ([id number]) [facility] ([facility]) [address] [place] [address] 34004 Lymphocytes (Bld) [#/Vol] 1.88 x10*3/uL Normal 0.80-3.00 [facility] Comment on above: Performed By: #### 5 7021-8 #### THELMA DENNISON ([id number]) [facility] ([facility]) [address] [place] [address] 46912 Lymphocytes/100 WBC (Bld) 20.7 % Normal 13.0-44.0 [facility] Comment on above: Performed By: #### 5 7021-8 #### THELMA DENNISON ([id number]) [facility] ([facility]) [address] [place] [address] 05817 MCH (RBC) [Entitic mass] 29.4 pg Normal 26.0-34.0 [facility] Comment on above: Performed By: #### 5 7021-8 #### THELMA DENNISON (24746) [facility] ([facility]) [address] [place] [address] 86766 MCHC (RBC) [Mass/Vol] 34.1 g/dL Normal 32.0-36.0 [facility] Comment on above: Performed By: #### 5 7021-8 #### THELMA DENNISON ([id number]) [facility] ([facility]) [address] [place] [address] 06657 MCV (RBC) [Entitic vol] 86 fL Normal 80-100 [facility] Comment on above: Performed By: #### 5 7021-8 #### THELMA DENNISON ([id number]) [facility] ([facility]) [address] [place] [address] 27301 Monocytes (Bld) [#/Vol] 0.87 x10*3/uL High 0.05-0.80 [facility] Comment on above: Performed By: #### 5 7021-8 #### THELMA DENNISON ([id number]) [facility] ([facility]) [address] [place] [address] 97255 Monocytes/100 WBC (Bld) 9.6 % Normal 2.0-10.0 [facility] Comment on above: Performed By: #### 5 7021-8 #### THELMA DENNISON ([id number]) [facility] ([facility]) [address] [place] [address] 44890 Neutrophils (Bld) [#/Vol] 5.05 x10*3/uL Normal 1.60-5.50 [facility] Comment on above: Result Comment: Perc ent differential counts (%) should be interpreted in the context of the absolute cell counts (cells/uL). Performed By: #### 5 7021-8 #### THELMA DENNISON ([id number]) [facility] ([facility]) [address] [place] [address] 38069 Neutrophils/100 WBC (Bld) 55.6 % Normal 40.0-80.0 [facility] Comment on above: Performed By: #### 5 7021-8 #### THELMA DENNISON (12909) [facility] ([facility]) [address] [place] [address] 07365 Nucleated RBC/100 WBC (Bld) [Ratio] 0.0 /100 WBCs Normal 0.0-0.0 [facility] Comment on above: Performed By: #### 5 7021-8 #### THELMA DENNISON ([id number]) [facility] ([facility]) [address] [place] [address] 14377 Platelets (Bld) [#/Vol] 240 x10*3/uL Normal 150-450 [facility] Comment on above: Performed By: #### 5 7021-8 #### THELMA DENNISON ([id number]) [facility] ([facility]) [address] [place] [address] 43786 RBC (Bld) [#/Vol] 4.80 x10*6/uL Normal 4.00-5.20 [facility] Comment on above: Performed By: #### 5 7021-8 #### THELMA DENNISON ([id number]) [facility] ([facility]) [address] [place] [address] 69620 WBC (Bld) [#/Vol] 9.1 x10*3/uL Normal 4.4-11.3 [facility] Comment on above: Performed By: #### 5 7021-8 #### THELMA DENNISON ([id number]) [facility] ([facility]) [address] [place] [address] 98601 Basophils (Bld) [#/Vol] 0.07 10*3/uL [facility] Basophils/100 WBC (Bld) 0.8 % 0.0 - 2.0 % [facility] Eosinophils (Bld) [#/Vol] 1.09 10*3/uL High [facility] Eosinophils/100 WBC (Bld) 12.0 % 0.0 - 6.0 % [facility] Erythrocyte distribution width (RBC) [Ratio] 14.1 % 11.5 - 14.5 % [facility] Hematocrit (Bld) [Volume fraction] 41.4 % 36.0 - 46.0 % [facility] Hemoglobin (Bld) [Mass/Vol] 14.1 g/dL 12.0 - 16.0 g/dL [facility] Immature granulocytes (Bld) [#/Vol] 0.12 10*3/uL [facility] Immature granulocytes/100 WBC (Bld) 1.3 % High 0.0 - 0.9 % [facility] Comment on above: Immature Granulocyte Count (IG) includes promyelocytes, myelocytes and metamyelocytes but does not include bands. Percent differential counts (%) should be interpreted in the context of the absolute cell counts (cells/UL). Interpretation and review of laboratory results Abnormal [facility] Lymphocytes (Bld) [#/Vol] 1.88 10*3/uL [facility] Lymphocytes/100 WBC (Bld) 20.7 % 13.0 - 44.0 % [facility] MCH (RBC) [Entitic mass] 29.4 pg 26.0 - 34.0 pg [facility] MCHC (RBC) [Mass/Vol] 34.1 g/dL 32.0 - 36.0 g/dL [facility] MCV (RBC) [Entitic vol] 86 fL 80 - 100 fL [facility] Monocytes (Bld) [#/Vol] 0.87 10*3/uL High [facility] Monocytes/100 WBC (Bld) 9.6 % 2.0 - 10.0 % [facility] Neutrophils (Bld) [#/Vol] 5.05 10*3/uL [facility] Comment on above: Percent differential counts (%) should be interpreted in the context of the absolute cell counts (cells/uL). Neutrophils/100 WBC (Bld) 55.6 % 40.0 - 80.0 % [facility] Nucleated RBC/100 WBC (Bld) [Ratio] 0.0 % [facility] Platelets (Bld) [#/Vol] 240 10*3/uL [facility] RBC (Bld) [#/Vol] 4.80 10*6/uL [facility] WBC (Bld) [#/Vol] 9.1 10*3/uL [facility] Calcitriolon 05-24-2023 1,25-dihydroxyvitamin D3 [Mass/Vol] 179.0 pg/mL High 19.9-79.3 [facility] Comment on above: Result Comment: INTE RPRETIVE INFORMATION: Vitamin D, 1,25-Dihydroxy This test is primarily indicated during patient evaluation for hypercalcemia and renal failure. A normal result does not rule out Vitamin D deficiency. The recommended test for diagnosing Vitamin D deficiency is Vitamin D 25-hydroxy. Performed By: [employer] [address] [place] [address]44 Portfolio Strategist: Jefferson Kerr MD, PhD CLIA Number: [id number] Performed By: #### 3 4529-8 #### THELMA DENNISON ([id number]) [facility] ([facility]) [address] [place] [address] 31084 Calcium, ionizedon Calcium.ionized (Bld) [Moles/Vol] 1.53 mmol/L High 1.1 - 1.33 mmol/L [facility] Comment on above: The performance domi acteristics of ionized calcium tested in heparinized plasma or serum have been validated by the individual laboratory site where testing is performed. Testing on heparinized plasma or serum is not approved by the FDA; however, such approval is not necessary. Calcium.ionizedon 05-24-2023 Calcium.ionized (Bld) [Moles/Vol] 1.53 mmol/L High 1.1-1.33 [facility] Comment on above: Result Comment: The performance characteristics of ionized calcium tested in heparinized plasma or serum have been validated by the individual laboratory site where testing is performed. Testing on heparinized plasma or serum is not approved by the FDA; however, such approval is not necessary. Performed By: #### 1 994-3 #### THELMA DENNISON ([id number]) [facility] ([facility]) [address] [place] [address] 71774 Calcium.ionized (Bld) [Moles /Vol]on 05-24-2023 Interpretation and review of laboratory results Abnormal [facility] Coagulation tissue factor in ducedon 05-24-2023 PT Coag (PPP) [Time] 25.3 s High 9.8-12.8 [facility] Comment on above: Performed By: #### 5 902-2 #### THELMA DENNISON ([id number]) [facility] ([facility]) [address] [place] [address] 45900 Comprehensive metabolic 2000 panelon 05-24-2023 Albumin BCP dye [Mass/Vol] 3.1 g/dL Low 3.4-5.0 [facility] Comment on above: Performed By: #### 2 4323-8 #### THELMA DENNISON ([id number]) [facility] ([facility]) [address] [place] [address] 21002 ALP [Catalytic activity/Vol] 47 U/L Normal 33-136 [facility] Comment on above: Performed By: #### 2 4323-8 #### THELMA DENNISON ([id number]) [facility] ([facility]) [address] [place] [address] 16503 ALT With P-5'-P [Catalytic activity/Vol] 39 U/L Normal 7-45 [facility] Comment on above: Result Comment: Liz ents treated with Sulfasalazine may generate falsely decreased results for ALT. Performed By: #### 2 4323-8 #### THELMA DENNISON ([id number]) [facility] ([facility]) [address] [place] [address] 08473 Anion gap [Moles/Vol] 11 mmol/L Normal 10-20 [facility] Comment on above: Performed By: #### 2 4323-8 #### THELMA DENNISON ([id number]) [facility] ([facility]) [address] [place] [address] 76740 AST With P-5'-P [Catalytic activity/Vol] 45 U/L High 9-39 [facility] Comment on above: Performed By: #### 2 4323-8 #### THELMA DENNISON ([id number]) [facility] ([facility]) [address] [place] [address] Bilirubin [Mass/Vol] 0.5 mg/dL Normal 0.0-1.2 [facility] Comment on above: Performed By: #### 2 4323-8 #### THELMA DENNISON ([id number]) [facility] ([facility]) [address] [place] [address] Calcium [Mass/Vol] 11.1 mg/dL High 8.6-10.3 [facility] Comment on above: Performed By: #### 2 4323-8 #### THELMA DENNISON ([id number]) [facility] ([facility]) [address] [place] [address] 97308 Chloride [Moles/Vol] 108 mmol/L High 98-107 [facility] Comment on above: Performed By: #### 2 4323-8 #### TEHLMA DENNISON ([id number]) [facility] ([facility]) [address] [place] [address] CO2 [Moles/Vol] 23 mmol/L Normal 21-32 [facility] Comment on above: Performed By: #### 2 4323-8 #### THELMA DENNISON ([id number]) [facility] ([facility]) [address] [place] [address] Creatinine [Mass/Vol] 1.87 mg/dL High 0.50-1.05 [facility] Comment on above: Performed By: #### 2 4323-8 #### DELORESIBLIBRADO MONGE RIO ORTEGA ([id number]) [facility] ([facility]) [address] [place] [address] 08668 Glomerular filtration rate/1.73 sq M.predicted 27 mL/min/1.73m*2 Low >60 [facility] Comment on above: Result Comment: Calc ulations of estimated GFR are performed using the 2020 CKD-EPI Study Refit equation without the race variable for the IDMS-Traceable creatinine methods. https://jasn.asnjournals.org/content//ASN.44487 63717 Performed By: #### 2 4323-8 #### THELMA DENNISON ([id number]) [facility] ([facility]) [address] [place] [address] 35924 Glucose [Mass/Vol] 77 mg/dL Normal 74-99 [facility] Comment on above: Performed By: #### 2 4323-8 #### THELMA DENNISON ([id number]) [facility] ([facility]) [address] [place] [address] 65552 Potassium [Moles/Vol] 3.8 mmol/L Normal 3.5-5.3 [facility] Comment on above: Performed By: #### 2 4323-8 #### THELMA DENNISON (12442) [facility] ([facility]) [address] [place] [address] 70112 Protein [Mass/Vol] 5.1 g/dL Low 6.4-8.2 [facility] Comment on above: Performed By: #### 2 4323-8 #### THELMA DENNISON ([id number]) [facility] ([facility]) [address] [place] [address] 32601 Sodium [Moles/Vol] 138 mmol/L Normal 136-145 [facility] Comment on above: Performed By: #### 2 4323-8 #### THELMA DENNISON ([id number]) [facility] ([facility]) [address] [place] [address] 09730 Urea nitrogen [Mass/Vol] 38 mg/dL High 6-23 [facility] Comment on above: Performed By: #### 2 4323-8 #### THELMA DENNISON ([id number]) [facility] ([facility]) [address] [place] [address] 91689 Albumin BCP dye [Mass/Vol] 3.1 g/dL Low 3.4 - 5.0 g/dL [facility] ALP [Catalytic activity/Vol] 47 U/L 33 - 136 U/L [facility] ALT With P-5'-P [Catalytic activity/Vol] 39 U/L 7 - 45 U/L [facility] Comment on above: Patients treated wit h Sulfasalazine may generate falsely decreased results for ALT. Anion gap [Moles/Vol] 11 mmol/L 10 - 2 0 mmol/L [facility] AST With P-5'-P [Catalytic activity/Vol] 45 U/L High 9 - 39 U/L [facility] Bilirubin [Mass/Vol] 0.5 mg/dL 0.0 - 1 .2 mg/dL [facility] Calcium [Mass/Vol] 11.1 mg/dL High 8.6 - 10. 3 mg/dL [facility] Chloride [Moles/Vol] 108 mmol/L High 98 - 10 7 mmol/L [facility] CO2 [Moles/Vol] 23 mmol/L 21 - 32 mmol/L [facility] Creatinine [Mass/Vol] 1.87 mg/dL High 0.50 - 1.05 mg/dL [facility] GFR/1.73 sq M.predicted among non-blacks MDRD (S/P/Bld) [Vol rate/Area] 27 mL/min/{1.73_m2} Low - PINF [facility] Comment on above: Calculations of marisabel mated GFR are performed using the 2020 CKD-EPI Study Refit equation without the race variable for the IDMS-Traceable creatinine methods. https://jasn.asnjournals.org/content/early/ASN.03605 44003 Glucose [Mass/Vol] 77 mg/dL 74 - 99 mg/dL [facility] Interpretation and review of laboratory results Abnormal [facility] Potassium [Moles/Vol] 3.8 mmol/L 3.5 - 5.3 mmol/L [facility] Protein [Mass/Vol] 5.1 g/dL Low 6.4 - 8.2 g/dL [facility] Sodium [Moles/Vol] 138 mmol/L 136 - 145 mmol/L [facility] Urea nitrogen [Mass/Vol] 38 mg/dL High 6 - 23 mg/dL [facility] Albumin BCP dye [Mass/Vol] 3.3 g/dL Low 3.4-5.0 [facility] Comment on above: Performed By: #### 2 4323-8 #### THELMA DENNISON ([id number]) [facility] ([facility]) [address] [place] [address] [id number] ALP [Catalytic activity/Vol] 52 U/L Normal 33-136 [facility] Comment on above: Performed By: #### 2 4323-8 #### DELORESIBLIBRADO DENNISON ([id number]) [facility] ([facility]) [address] [place] [id number] [id number] ALT With P-5'-P [Catalytic activity/Vol] 43 U/L Normal 7-45 [facility] Comment on above: Result Comment: Liz ents treated with Sulfasalazine may generate falsely decreased results for ALT. Performed By: #### 2 4323-8 #### THELMA DENNISON ([id number]) [facility] ([facility]) [address] [place] [address] [id number] Anion gap [Moles/Vol] 10 mmol/L Normal 10-20 [facility] Comment on above: Performed By: #### 2 4323-8 #### THELMA DENNISON ([id number]) [facility] ([facility]) [address] [place] [address] AST With P-5'-P [Catalytic activity/Vol] 48 U/L High 9-39 [facility] Comment on above: Performed By: #### 2 4323-8 #### DELORESIBLIBRADO DENNISON ([id number]) [facility] ([facility]) [address] [place] [address] Bilirubin [Mass/Vol] 0.5 mg/dL Normal 0.0-1.2 [facility] Comment on above: Performed By: #### 2 4323-8 #### DELORESIBLIBRADO DENNISON ([id number]) [facility] ([facility]) [address] [place] [address] [place] [address] Calcium [Mass/Vol] 11.5 mg/dL High 8.6-10.3 [facility] Comment on above: Performed By: #### 2 4323-8 #### THELMA DENNISON ([id number]) [facility] ([facility]) [address] [place] [address] Chloride [Moles/Vol] 106 mmol/L Normal 98-107 [facility] Comment on above: Performed By: #### 2 4323-8 #### THELMA DENNISON ([id number]) [facility] ([facility]) [address] [place] [address] CO2 [Moles/Vol] 25 mmol/L Normal 21-32 [facility] Comment on above: Performed By: #### 2 4323-8 #### THELMA DENNISON ([id number]) [facility] ([facility]) [address] [place] [address] Creatinine [Mass/Vol] 1.95 mg/dL High 0.50-1.05 [facility] Comment on above: Performed By: #### 2 4323-8 #### THELMA DENNISON ([id number]) [facility] ([facility]) [address] [place] [address]9737 Glomerular filtration rate/1.73 sq M.predicted 26 mL/min/1.73m*2 Low >60 [facility] Comment on above: Result Comment: Calc ulations of estimated GFR are performed using the 2020 CKD-EPI Study Refit equation without the race variable for the IDMS-Traceable creatinine methods. https://jasn.asnjournals.org/content//ASN.76346 99541 Performed By: #### 2 4323-8 #### THELMA DENNISON ([id number]) [facility] ([facility]) [address] [place] [address] Glucose [Mass/Vol] 83 mg/dL Normal 74-99 [facility] Comment on above: Performed By: #### 2 4323-8 #### THELMA DENNISON ([id number]) [facility] ([facility]) [address] [place] [address] Potassium [Moles/Vol] 3.8 mmol/L Normal 3.5-5.3 [facility] Comment on above: Performed By: #### 2 4323-8 #### THELMA DENNISON ([id number]) [facility] ([facility]) [address] [place] [address]49 Protein [Mass/Vol] 5.4 g/dL Low 6.4-8.2 [facility] Comment on above: Performed By: #### 2 4323-8 #### THELMA DENNISON ([id number]) [facility] ([facility]) [address] [place] [address] Sodium [Moles/Vol] 137 mmol/L Normal 136-145 [facility] Comment on above: Performed By: #### 2 4323-8 #### THELMA DENNISON ([id number]) [facility] ([facility]) [address] [place] [address]10 Urea nitrogen [Mass/Vol] 37 mg/dL High 6-23 [facility] Comment on above: Performed By: #### 2 4323-8 #### THELMA DENNISON ([id number]) [facility] ([facility]) [address] [place] [address] Albumin BCP dye [Mass/Vol] 3.3 g/dL Low 3.4 - 5.0 g/dL [facility] ALP [Catalytic activity/Vol] 52 U/L 33 - 136 U/L [facility] ALT With P-5'-P [Catalytic activity/Vol] 43 U/L 7 - 45 U/L [facility] Comment on above: Patients treated wit h Sulfasalazine may generate falsely decreased results for ALT. Anion gap [Moles/Vol] 10 mmol/L 10 - 2 0 mmol/L [facility] AST With P-5'-P [Catalytic activity/Vol] 48 U/L High 9 - 39 U/L [facility] Bilirubin [Mass/Vol] 0.5 mg/dL 0.0 - 1 .2 mg/dL [facility] Calcium [Mass/Vol] 11.5 mg/dL High 8.6 - 10. 3 mg/dL [facility] Chloride [Moles/Vol] 106 mmol/L 98 - 10 7 mmol/L [facility] CO2 [Moles/Vol] 25 mmol/L 21 - 32 mmol/L [facility] Creatinine [Mass/Vol] 1.95 mg/dL High 0.50 - 1.05 mg/dL [facility] GFR/1.73 sq M.predicted among non-blacks MDRD (S/P/Bld) [Vol rate/Area] 26 mL/min/{1.73_m2} Low - PINF [facility] Comment on above: Calculations of marisabel mated GFR are performed using the 2020 CKD-EPI Study Refit equation without the race variable for the IDMS-Traceable creatinine methods. https://jasn.asnjournals.org/content/early//ASN.48088 89977 Glucose [Mass/Vol] 83 mg/dL 74 - 99 mg/dL [facility] Interpretation and review of laboratory results Abnormal [facility] Potassium [Moles/Vol] 3.8 mmol/L 3.5 - 5.3 mmol/L [facility] Protein [Mass/Vol] 5.4 g/dL Low 6.4 - 8.2 g/dL [facility] Sodium [Moles/Vol] 137 mmol/L 136 - 145 mmol/L [facility] Urea nitrogen [Mass/Vol] 37 mg/dL High 6 - 23 mg/dL [facility] Magnesiumon 05-24-2023 Magnesium [Mass/Vol] 1.95 mg/dL Normal 1.60-2.40 [facility] Comment on above: Performed By: #### 1 9123-9 #### THELMA DENNISON ([id number]) [facility] ([facility]) [address] [place] [address] Magnesium [Mass/Vol] 1.95 mg/dL 1.60 - 2.40 mg/dL [facility] Magnesium [Mass/Vol] 2.03 mg/dL Normal 1.60-2.40 [facility] Comment on above: Performed By: #### 1 9123-9 #### THELMA DENNISON ([id number]) [facility] ([facility]) [address] [place] [address] Magnesium [Mass/Vol] 2.03 mg/dL 1.60 - 2.40 mg/dL [facility] Magnesium [Mass/Vol]on 05-23 Interpretation and review of laboratory results Normal [facility] Interpretation and review of laboratory results Normal [facility] No Panel Informationon 05-23 [facility] PT Coag (PPP) [Time]on 05-23 INR Coag (PPP) [Relative time] 2.2 High 0.9-1.1 [facility] Comment on above: Performed By: #### 5 902-2 #### THELMA DENNISON ([id number]) [facility] ([facility]) [address] [place] [address] 57654 INR Coag (PPP) [Relative time] 2.2 {INR} High 0.9 - 1.1 [facility] Interpretation and review of laboratory results Abnormal [facility] PT and aPTT panel Coag (PPP) on 05-24-2023 aPTT Coag (PPP) [Time] 36 s Normal 27-38 [facility] Comment on above: Order Comment: The A PTT is no longer used for monitoring Unfractionated Heparin Therapy. For monitoring Heparin Therapy, use the Heparin Assay. Performed By: #### 3 4529-8 #### THELMA DENNISON ([id number]) [facility] ([facility]) [address] [place] [address] 68[address] INR Coag (PPP) [Relative time] 2.2 High 0.9-1.1 [facility] Comment on above: Order Comment: The A PTT is no longer used for monitoring Unfractionated Heparin Therapy. For monitoring Heparin Therapy, use the Heparin Assay. Performed By: #### 3 4529-8 #### THELMA DENNISON ([id number]) [facility] ([facility]) [address] [place] [address] PT Coag (PPP) [Time] 25.0 s High 9.8-12.8 [facility] Comment on above: Order Comment: The A PTT is no longer used for monitoring Unfractionated Heparin Therapy. For monitoring Heparin Therapy, use the Heparin Assay. Performed By: #### 3 4529-8 #### THELMA DENNISON ([id number]) [facility] ([facility]) [address] [place] [address] aPTT Coag (PPP) [Time] 36 s [facility] INR Coag (PPP) [Relative time] 2.2 {INR} High 0.9 - 1.1 [facility] Interpretation and review of laboratory results Abnormal [facility] PT Coag (PPP) [Time] 25.0 s High [facility] The APTT is no longe r used for monitoring Unfractionated Heparin Therapy. For monitoring Heparin Therapy, use the Heparin Assay. [facility] PTH, [place] 05-24-2023 Parathyrin.intact [Mass/Vol] 11.2 pg/mL Low 18.5 - 88.0 pg/mL [facility] Parathyrin.intacton 05-24-19 Parathyrin.intact [Mass/Vol] 11.2 pg/mL Low 18.5-88.0 [facility] Comment on above: Performed By: #### 2 731-8 #### JENNIFER Mirza ([id number]) [facility] ([facility]) [id number] [place] [address] Parathyrin.intact [Mass/Vol] on 05-24-2023 Interpretation and review of laboratory results Abnormal [facility] Protime-INRon 05-24-2023 PT Coag (PPP) [Time] 25.3 s High [facility] SST TOPon 05-24-2023 Extra Tube Hold for add-ons. [facility] Comment on above: Auto resulted. [facility] Absolute lymphocyte countOrd ered By: Ankush Noguera on 05-23-2023 Lymphocytes Auto (Unsp spec) [#/Vol] 1.83 10*3/uL 0.83-4.51 [facility] Automated lymphocyte count a s percentage of total leukocytesOrdered By: Ankush Noguera on 05-23-2023 Lymphocytes/100 WBC Auto (Unsp spec) 19.2 % 19-41 [facility] Basic metabolic 2000 panelon 05-23-2023 Anion gap [Moles/Vol] 16 mmol/L 9 - 18 mmol/L [facility] Calcium [Mass/Vol] 12.6 mg/dL High 8.5 - 10. 2 mg/dL [facility] Chloride [Moles/Vol] 100 mmol/L 97 - 10 5 mmol/L [facility] CO2 [Moles/Vol] 18 mmol/L Low 22 - 30 mmol/L [facility] Creatinine [Mass/Vol] 1.98 mg/dL High 0.58 - 0.96 mg/dL [facility] Estimated Glomerular Filtration Rate 25 mL/min/1.73m Low >=60 mL/min/1.73m [facility] Glucose [Mass/Vol] 110 mg/dL High 74 - 99 mg/dL [facility] Potassium [Moles/Vol] 4.7 mmol/L 3.7 - 5.1 mmol/L [facility] Sodium [Moles/Vol] 134 mmol/L Low 136 - 144 mmol/L [facility] Urea nitrogen [Mass/Vol] 35 mg/dL High 7 - 21 mg/dL [facility] Basophil percentageOrdered B y: Ankush Chuckie on 05-23-2023 Basophil percentage 50-100 SEEN /hpf 0-5 [facility] Basophils/100 WBC (Bld) 0.8 % 0-1 [facility] Bilirubin [Mass/Vol] 0.40 mg/dL 0.20-1.00 [facility] Comment on above: For patients on eltr ombopag therapy, use of Dimension [place] TBIL is not recommended. Chloride [Moles/Vol] 105 mmol/L 98-107 [facility] Eosinophils/100 WBC (Bld) 9.7 % 0-5 [facility] Glucose [Mass/Vol] 144 mg/dL 74-106 [facility] Comment on above: Fasting Glucose resu lt greater than or equal to 126 mg/dL suggests DIABETES MELLITUS per A.D.A. criteria. Hemoglobin (Bld) [Mass/Vol] 14.5 g/dL 12.0-15.0 [facility] Monocytes/100 WBC (Bld) 9.7 % 0-10 [facility] Neutrophils (Bld) [#/Vol] 5.7 10*3/uL 2.0-7.7 [facility] Neutrophils/100 WBC (Bld) 59.7 % 47-70 [facility] Potassium [Moles/Vol] 4.0 mmol/L 3.5-5.1 [facility] Protein [Mass/Vol] 5.9 g/dL 6.4-8.2 [facility] Sodium [Moles/Vol] 136 mmol/L 136-145 [facility] WBC (Bld) [#/Vol] 9.5 10*3/uL 4.4-11.0 [facility] Bilirubin Test strip Ql (U)O rdered By: Ankush Noguera on 05-23-2023 Bilirubin Ql (U) Negative Negative [facility] Calcium.ionized [Moles/Vol]o n 05-23-2023 Calcium.ionized (Bld) [Mass/Vol] 1.69 mmol/L High 1.08 - 1.30 mmol/L [facility] Calcium.ionized adjusted to pH 7.4 (Bld) [Moles/Vol] 1.69 mmol/L High 1.08 - 1.30 mmol/L [facility] Determination of erythrocyte mean corpuscular volume (MCV)Ordered By: Ankush Noguera on 05-23-2023 MCV (RBC) [Entitic vol] 85.4 fL 81-99 [facility] Erythrocyte distribution wid th ratioOrdered By: Ankush Noguera on 05-23-2023 Erythrocyte distribution width (RBC) [Ratio] 14.2 % 11.6-14.6 [facility] Erythrocyte distribution wid th standard deviationOrdered By: Ankush Noguera on 05-23-2023 Erythrocyte distribution width (RBC) [Entitic vol] 44.1 fL 35.1-43.9 [facility] Hematocrit Auto (Bld) [Volum e fraction]Ordered By: Ankush Noguera on 05-23-2023 Hematocrit (Bld) [Volume fraction] 43.3 % 37-47 [facility] Immature granulocytes/100 WB C Auto (Bld)Ordered By: Ankush Noguera on 05-23-2023 Immature granulocytes/100 WBC (Bld) 0.900 % 0.0-0.9 [facility] Comment on above: IG% - Immature Granu locytes (promyelocytes, myelocytes and metamyelocytes) > 1% indicates that a LEFT SHIFT is Present. Ketones Test strip Ql (U)Ord ered By: Ankush Noguera on 05-23-2023 Ketones Ql (U) Negative Negative [facility] Laboratory - Chemistry and C hemistry - challengeOrdered By: Ankush Noguera on 05-23-2023 Albumin/Globulin [Mass ratio] 1.0 {ratio} 0.9-2.4 [facility] ALP [Catalytic activity/Vol] 76 U/L 45-117 [facility] ALT [Catalytic activity/Vol] 62 U/L 13-56 [facility] CO2 [Moles/Vol] 23.0 mmol/L 21.0-32.0 [facility] Globulin (S) [Mass/Vol] 3.0 g/dL 2.2-4.2 [facility] Urea nitrogen/Creatinine [Mass ratio] 18.9 mg/mg 10-20 [facility] Laboratory - CoagulationOrde red By: Ankush Noguera on 05-23-2023 INR Coag (Bld) [Relative time] 2.1 {INR} [facility] PT Coag (PPP) [Time] 23.0 s 11.7-14.9 [facility] - Hematology and Cell countsOrdered By: Ankush Noguera on 05-23-2023 MCH (RBC) [Entitic mass] 28.6 pg 27.0-32.0 [facility] MCHC (RBC) [Mass/Vol] 33.5 g/dL 32-36 [facility] Nucleated RBC/100 WBC (Bld) [Ratio] 0 % 0-5 [facility] Platelet mean volume (Bld) [Entitic vol] 10.9 fL 6.2-12.0 [facility] Platelets (Bld) [#/Vol] 271 10*3/uL 150-450 [facility] MAGNESIUM BLDon 05-23-2023 Magnesium [Mass/Vol] 2.3 mg/dL 1.7 - 2 .3 mg/dL [facility] Mucus LM Ql (Urine sed)Order ed By: Ankush Noguera on 05-23-2023 Mucus Ql (Urine sed) 0 SEEN /hpf [facility] Nitrite Test strip Ql (U)Ord ered By: Ankush Noguera on 05-23-2023 Nitrite Ql (U) Negative Negative [facility] No Panel InformationOrdered By: Ankush Noguera on 05-23-2023 Urine RBC 10-25 SEEN /hpf 0-5 [facility] Ionized Calcium 6.22 mg/dL 4.36-5.20 [facility] Estimated Creatinine Clearance Calc 19.14 ml/min [facility] Estimated GFR (MDRD) Amer 30 mL/min >60 [facility] Comment on above: GFR Calc Estimated GFR (MDRD) Non-Af Amer 25 mL/min >60 [facility] Comment on above: Non- GFR Calc Troponin I High Sensitivity 32 pg/mL 3.0-54.0 [facility] Comment on above: Please Note: New Katerina t Units and Gender Specific Reference Ranges. For more information see Policy Stat Procedure [place] High Sensitivity Troponin (TNIH) and attachments. PHOSPHORUS INORGANICon 05-22 Phosphate [Mass/Vol] 4.1 mg/dL 2.7 - 4 .8 mg/dL [facility] Protein Test strip Ql (U)Ord ered By: Ankush Noguera on 05-23-2023 Protein Ql (U) 15 mg/dl Negative [facility] RBC Auto (Bld) [#/Vol]Ordere d By: Ankush Noguera on 05-23-2023 RBC (Bld) [#/Vol] 5.07 10*6/uL 4.2-5.4 [facility] Serum or plasma calcium scott urement (mass/volume)Ordered By: Ankush Noguera on 05-23-2023 Calcium [Mass/Vol] 11.9 mg/dL 8.5-10.1 [facility] Serum or plasma creatinine m easurement (mass/volume)Ordered By: Ankush Noguera on 05-23-2023 Creatinine [Mass/Vol] 2.06 mg/dL 0.55-1.02 [facility] Comment on above: The validity of the calculated GFR & GFRAA in patients over 70 years has not been determined. Clinical correlation is essential. Serum or plasma urea nitroge n measurement (mass/volume)Ordered By: Ankush Noguera on 05-23-2023 Urea nitrogen [Mass/Vol] 39 mg/dL 7-18 [facility] Squamous epithelial cells de tection in urine sediment by light microscopyOrdered By: Ankush Noguera on 05-23-2023 Epithelial cells.squamous LM Ql (Urine sed) 5-10 SEEN /hpf 5-10 [facility] Thin prep Papanicolaou smear with manual screeningOrdered By: Ankush Noguera on 05-23-2023 Thin prep Papanicolaou smear with manual screening 2.9 g/dL 3.2-5.0 [facility] Thin prep Papanicolaou smear with manual screening 64 U/L 15-37 [facility] Thin prep Papanicolaou smear with manual screening 8 5-15 [facility] UA DIP, URINE (POC)on 2023 BILIRUBIN UA (POCT) Negative Negative [facility] CLARITY UA (POCT) Clear [facility] COLOR UA (POCT) Yellow [facility] GLUCOSE UA (POCT) Negative Negative mg/dL [facility] Hemoglobin Ql (U) Small Abnormal Negative [facility] KETONE UA (POCT) Negative Negative mg/dL [facility] LEUKOCYTES UA (POCT) Small Abnormal Negative [facility] NITRITE UA (POCT) Negative Negative [facility] PH UA (POCT) 5.5 4.5 - 8.0 [facility] Protein Ql (U) Negative Negative mg/dL [facility] SPECIFIC GRAVITY UA (POCT) <=1.005 Abnormal 1.005 - 1.030 [facility] UROBILINOGEN UA (POCT) 0.2 E.U./dL Camelia l E.U./dL [facility] Urine blood detectionOrdered By: Ankush Noguera on 05-23-2023 RBC Ql (U) 25 /ul Negative [facility] Urine clarityOrdered By: Edouard Noguera on 05-23-2023 Clarity (U) Clear Clear [facility] Urine color determinationOrd ered By: Ankush Noguera on 05-23-2023 Color (U) Yellow Yellow [facility] Urine glucose detectionOrder ed By: Ankush Noguera on 05-23-2023 Glucose Ql (U) Normal mg/dl Normal [facility] Urine leukocyte esterase det ection by dipstickOrdered By: Ankush Noguera on 05-23-2023 Leukocyte esterase Test strip Ql (U) 500 /ul Negative [facility] Urine pHOrdered By: Ankush ford on 05-23-2023 pH (U) 6.5 [pH] 5.0 - 8.0 [facility] Urine sediment bacteria coun t by microscopy (number/high power field)Ordered By: Ankush Noguera on 05-23-2023 Bacteria LM.HPF (Urine sed) [#/Area] 0 /[HPF] None Seen [facility] Urine specific gravity measu rementOrdered By: Ankush Noguera on 05-23-2023 Specific gravity (U) [Rel density] 1.010 1.002-1.030 [facility] Urine urobilinogen measureme ntOrdered By: Ankush Noguera on 05-23-2023 Urobilinogen Ql (U) Normal mg/dl Normal [facility] Absolute lymphocyte countOrd ered By: Juan Alberto Mcclendon on 05-15-2023 Lymphocytes Auto (Unsp spec) [#/Vol] 1.74 10*3/uL 0.83-4.51 [facility] Automated lymphocyte count a s percentage of total leukocytesOrdered By: Juan Alberto Mcclendon on 05-15-2023 Lymphocytes/100 WBC Auto (Unsp spec) 15.8 % 19-41 [facility] Basophil percentageOrdered B y: Juan Alberto Mcclendon on 05-15-2023 Basophils/100 WBC (Bld) 0.6 % 0-1 [facility] Chloride [Moles/Vol] 103 mmol/L 98-107 [facility] Eosinophils/100 WBC (Bld) 6.4 % 0-5 [facility] Glucose [Mass/Vol] 103 mg/dL 74-106 [facility] Comment on above: Fasting Glucose resu lt from 100 to 125 mg/dL suggests IMPAIRED HOMEOSTASIS per A.D.A. criteria. Hemoglobin (Bld) [Mass/Vol] 14.4 g/dL 12.0-15.0 [facility] Monocytes/100 WBC (Bld) 10.7 % 0-10 [facility] Neutrophils (Bld) [#/Vol] 7.2 10*3/uL 2.0-7.7 [facility] Neutrophils/100 WBC (Bld) 65.8 % 47-70 [facility] Potassium [Moles/Vol] 3.6 mmol/L 3.5-5.1 [facility] Sodium [Moles/Vol] 134 mmol/L 136-145 [facility] WBC (Bld) [#/Vol] 11.0 10*3/uL 4.4-11.0 [facility] Determination of erythrocyte mean corpuscular volume (MCV)Ordered By: Juan Alberto Mcclendon on 05-15-2023 MCV (RBC) [Entitic vol] 88.0 fL 81-99 [facility] Erythrocyte distribution wid th ratioOrdered By: Juan Alberto Mcclendon on 05-15-2023 Erythrocyte distribution width (RBC) [Ratio] 14.3 % 11.6-14.6 [facility] Erythrocyte distribution wid th standard deviationOrdered By: Juan Alberto Mcclendon on 05-15-2023 Erythrocyte distribution width (RBC) [Entitic vol] 45.5 fL 35.1-43.9 [facility] Hematocrit Auto (Bld) [Volum e fraction]Ordered By: Juan Alberto Mcclendon on 05-15-2023 Hematocrit (Bld) [Volume fraction] 44.8 % 37-47 [facility] Immature granulocytes/100 WB C Auto (Bld)Ordered By: Juan Alberot Mcclendon on 05-15-2023 Immature granulocytes/100 WBC (Bld) 0.700 % 0.0-0.9 [facility] Comment on above: IG% - Immature Granu locytes (promyelocytes, myelocytes and metamyelocytes) > 1% indicates that a LEFT SHIFT is Present. Laboratory - Chemistry and C hemistry - challengeOrdered By: Juan Alberto Mcclendon on 05-15-2023 CO2 [Moles/Vol] 22.0 mmol/L 21.0-32.0 [facility] Urea nitrogen/Creatinine [Mass ratio] 17.6 mg/mg 10-20 [facility] Laboratory - Hematology and Cell countsOrdered By: Juan Alberto Mcclendon on 05-15-2023 MCH (RBC) [Entitic mass] 28.3 pg 27.0-32.0 [facility] MCHC (RBC) [Mass/Vol] 32.1 g/dL 32-36 [facility] Nucleated RBC/100 WBC (Bld) [Ratio] 0 % 0-5 [facility] Platelet mean volume (Bld) [Entitic vol] 11.8 fL 6.2-12.0 [facility] Platelets (Bld) [#/Vol] 216 10*3/uL 150-450 [facility] No Panel InformationOrdered By: Juan Alberto Mcclendon on 05-15-2023 Estimated Creatinine Clearance Calc 19.41 ml/min [facility] Estimated GFR (MDRD) Amer 30 mL/min >60 [facility] Comment on above: GFR Calc Estimated GFR (MDRD) Non-Af Amer 25 mL/min >60 [facility] Comment on above: Non- GFR Calc RBC Auto (Bld) [#/Vol]Ordere d By: Juan Alberto Mcclendon on 05-15-2023 RBC (Bld) [#/Vol] 5.09 10*6/uL 4.2-5.4 [facility] Serum or plasma calcium scott urement (mass/volume)Ordered By: Juan Alberto Mcclendon on 05-15-2023 Calcium [Mass/Vol] 11.1 mg/dL 8.5-10.1 [facility] Serum or plasma creatinine m easurement (mass/volume)Ordered By: Juan Alberto Mcclendon on 05-15-2023 Creatinine [Mass/Vol] 2.04 mg/dL 0.55-1.02 [facility] Comment on above: The validity of the calculated GFR & GFRAA in patients over 70 years has not been determined. Clinical correlation is essential. Serum or plasma urea nitroge n measurement (mass/volume)Ordered By: Juan Alberto Mcclendon on 05-15-2023 Urea nitrogen [Mass/Vol] 36 mg/dL 7-18 [facility] Thin prep Papanicolaou smear with manual screeningOrdered By: Juan Alberto Mcclendon on 05-15-2023 Thin prep Papanicolaou smear with manual screening 9 5-15 [facility] [facility] Capillary blood internationa l normalized ratio (INR)Ordered By: Basim Velasquez on 2023 INR Coag (BldC) [Relative time] 3.0 [facility] Comment on above: Critical Value > 4.0 Whole blood prothrombin time Ordered By: Basim Velasquez on 2023 PT Coag (Bld) [Time] 32.0 s 11.7-14.9 [facility] No Panel InformationOrdered By: Jennifer Tarango on 04-04-2023 Vitamin D 25-Hydroxy 66.6 ng/mL [facility] Comment on above: Vitamin D 25(OH) Sta tus Range Deficiency <20 ng/mL (50nmol/L) Insufficiency 20 - 30 ng/mL (50 - 75 nmol/L) Sufficiency 30 - 100 ng/mL (75 - 250 nmol/L) Toxicity >100 ng/mL (>250 nmol/L) Serum or plasma calcitriol m easurement (mass/volume)Ordered By: Jennifer Tarango on 04-04-2023 1,25-dihydroxyvitamin D3 [Mass/Vol] 45.7 pg/mL 24.8-81.5 [facility] Comment on above: Performed at: [address] [id number] Director: Yvonne Cook MD, Phone: [phone] Basophil percentageOrdered B y: Basim Velasquez on 03-28-2023 Basophil percentage 2.8 mg/dL 2.5-4.9 [facility] Chloride [Moles/Vol] 106 mmol/L 98-107 [facility] Glucose [Mass/Vol] 94 mg/dL 74-106 [facility] Potassium [Moles/Vol] 4.1 mmol/L 3.5-5.1 [facility] Sodium [Moles/Vol] 137 mmol/L 136-145 [facility] Laboratory - Chemistry and C hemistry - challengeOrdered By: Basim Velasquez on 03-28-2023 CO2 [Moles/Vol] 28.0 mmol/L 21.0-32.0 [facility] Urea nitrogen/Creatinine [Mass ratio] 26.5 mg/mg 10-20 [facility] Laboratory - CoagulationOrde red By: Basim Velasquez on 03-28-2023 INR Coag (Bld) [Relative time] 1.7 {INR} [facility] PT Coag (PPP) [Time] 20.5 s 11.7-14.9 [facility] No Panel InformationOrdered By: Basim Velasquez on 03-28-2023 Estimated GFR (MDRD) Amer 32 mL/min >60 [facility] Comment on above: GFR Calc Estimated GFR (MDRD) Non-Af Amer 26 mL/min >60 [facility] Comment on above: Non- GFR Calc Serum or plasma calcium scott urement (mass/volume)Ordered By: Basim Velasquez on 03-28-2023 Calcium [Mass/Vol] 10.9 mg/dL 8.5-10.1 [facility] Serum or plasma creatinine m easurement (mass/volume)Ordered By: Basim Velasquez on 03-28-2023 Creatinine [Mass/Vol] 1.96 mg/dL 0.55-1.02 [facility] Comment on above: The validity of the calculated GFR & GFRAA in patients over 70 years has not been determined. Clinical correlation is essential. Serum or plasma urea nitroge n measurement (mass/volume)Ordered By: Basim Velasquez on 03-28-2023 Urea nitrogen [Mass/Vol] 52 mg/dL 7-18 [facility] Thin prep Papanicolaou smear with manual screeningOrdered By: Basim Velasquez on 03-28-2023 Thin prep Papanicolaou smear with manual screening 3.5 g/dL 3.2-5.0 [facility] Laboratory - CoagulationOrde red By: Basim Velasquez on 02-24-2023 PT Coag (PPP) [Time] 26.7 s 11.7-14.9 [facility] Whole blood international no rmalized ratio (INR)Ordered By: Basim Velasquez on 02-24-2023 INR Coag (Bld) [Relative time] 2.4 {INR} [facility] Laboratory - CoagulationOrde red By: Basim Velasquez on 02-08-2023 INR Coag (Bld) [Relative time] 3.1 {INR} [facility] Comment on above: Critical Value > 4.0 Whole blood prothrombin time Ordered By: Basim Velasquez on 02-08-2023 PT Coag (Bld) [Time] 33.3 s 11.7-14.9 [facility] Laboratory - CoagulationOrde red By: Basim Velasquez on 12-23-2022 INR Coag (Bld) [Relative time] 2.8 {INR} [facility] Comment on above: Critical Value > 4.0 Whole blood prothrombin time Ordered By: Basim Velasquez on 12-23-2022 PT Coag (Bld) [Time] 30.6 s 11.7-14.9 [facility] XR FOOT GENERAL 3V AP/LAT/OB L RIGHTon 12-19-2022 [facility] Basophil percentageOrdered B y: Basim Velasquez on 12-08-2022 Basophil percentage 2.5 mg/dL 2.5-4.9 [facility] Chloride [Moles/Vol] 107 mmol/L 98-107 [facility] Glucose [Mass/Vol] 185 mg/dL 74-106 [facility] Comment on above: Fasting Glucose resu lt greater than or equal to 126 mg/dL suggests DIABETES MELLITUS per A.D.A. criteria. Potassium [Moles/Vol] 4.3 mmol/L 3.5-5.1 [facility] Sodium [Moles/Vol] 140 mmol/L 136-145 [facility] INR in Blood by Coagulation assayOrdered By: Basim Velasquez on 12-08-2022 INR Coag (Bld) [Relative time] 3.1 {INR} [facility] Laboratory - Chemistry and C hemistry - challengeOrdered By: Basim Velasquez on 12-08-2022 CO2 [Moles/Vol] 28.0 mmol/L 21.0-32.0 [facility] Urea nitrogen/Creatinine [Mass ratio] 21.9 mg/mg 12-09 [facility] Laboratory - CoagulationOrde red By: Basim Velasquez on 12-08-2022 PT Coag (PPP) [Time] 32.0 s 11.7-14.9 [facility] No Panel InformationOrdered By: Basim Velasquez on 12-08-2022 Estimated GFR (MDRD) Amer 34 mL/min >60 [facility] Comment on above: GFR Calc Estimated GFR (MDRD) Non-Af Amer 28 mL/min >60 [facility] Comment on above: Non- GFR Calc Serum or plasma albumin scott urement (mass/volume)Ordered By: Basim Velasquez on 12-08-2022 Albumin [Mass/Vol] 3.5 g/dL 3.2-5.0 [facility] Serum or plasma calcium scott urement (mass/volume)Ordered By: Basim Velasquez on 12-08-2022 Calcium [Mass/Vol] 9.4 mg/dL 8.5-10.1 [facility] Serum or plasma creatinine m easurement (mass/volume)Ordered By: Basim Velasquez on 12-08-2022 Creatinine [Mass/Vol] 1.83 mg/dL 0.55-1.02 [facility] Comment on above: The validity of the calculated GFR & GFRAA in patients over 70 years has not been determined. Clinical correlation is essential. Serum or plasma urea nitroge n measurement (mass/volume)Ordered By: Basim Velasquez on 12-08-2022 Urea nitrogen [Mass/Vol] 40 mg/dL 09-06 [facility] XR FOOT GENERAL 3V AP/LAT/OB L RIGHTon 12-01-2022 [facility] Basophil percentageOrdered B y: Torsten Vann on 11-24-2022 Bilirubin [Mass/Vol] 0.60 mg/dL 0.20-1.00 [facility] Comment on above: For patients on eltr ombopag therapy, use of Dimension [place] TBIL is not recommended. Protein [Mass/Vol] 7.2 g/dL 6.4-8.2 [facility] Laboratory - Chemistry and C hemistry - challengeOrdered By: Torsten Vann on 11-24-2022 ALP [Catalytic activity/Vol] 103 U/L 45-117 [facility] ALT [Catalytic activity/Vol] 38 U/L 13-56 [facility] Globulin (S) [Mass/Vol] 3.4 g/dL 2.2-4.2 [facility] No Panel InformationOrdered By: Torsten Vann on 11-24-2022 Thyroid Stimulating Hormone (TSH) 0.42 uIU/mL 0.358-3.74 [facility] Vitamin D 25-Hydroxy 49.5 ng/mL [facility] Comment on above: Vitamin D 25(OH) Sta tus Range Deficiency <20 ng/mL (50nmol/L) Insufficiency 20 - 30 ng/mL (50 - 75 nmol/L) Sufficiency 30 - 100 ng/mL (75 - 250 nmol/L) Toxicity >100 ng/mL (>250 nmol/L) Serum or plasma albumin/glob ulin mass ratioOrdered By: Torsten Vann on 11-24-2022 Albumin/Globulin [Mass ratio] 1.1 {ratio} 0.9-2.4 [facility] Thin prep Papanicolaou smear with manual screeningOrdered By: Torsten Vann on 11-24-2022 Thin prep Papanicolaou smear with manual screening 28 U/L 15-37 [facility] Thin prep Papanicolaou smear with manual screening 5 5-15 [facility] XR FOOT GENERAL 3V AP/LAT/OB L RIGHTon 11-08-2022 [facility] XR Foot - right AP and Later al and obliqueon 11-08-2022 IMPRESSION: Acute nondisplaced fracture of the proximal fifth metatarsal shaft. Stringing Machine Operator: [facility] Transcribe Date/Time: Nov 08 2022 11:28A Dictated by : ELIZABETH GEORGE MD This examination was interpreted and the report reviewed and electronically signed by: ELIZABETH GEORGE MD on Nov 08 2022 11:29AM [facility] * * *Final Report* [...] of the vasculature. DIVISION OF RADIOLOGY Provider, [facility] - 11/08/2022 * * *Final Report* [...] fracture of the proximal fifth metatarsal shaft. [facility]ing Machine [facility] Transcribe Date/Time: Nov 08 2022 11:28A Dictated by : ELIZABETH GEORGE MD This examination was interpreted and the report reviewed and electronically signed by: ELIZABETH GEORGE MD on Nov 08 2022 11:29AM EST [facility] Radiology Study observation (narrative) [facility] XR Foot - right AP and Later al and obliqueOrdered By: [facility] Provider on 11-08-2022 [facility] XR HIP BILATERAL 5V PEL/AP/L AT EACH HIPon 10-28-2022 IMPRESSION: Mild hip degenerative change bilaterally. Stringing Machine Operator: [facility] Transcribe Date/Time: Oct 28 2022 9:25A Dictated by : JAYME RIDER MD This examination was interpreted and the report reviewed and electronically signed by: JAYME RIDER MD on Oct 28 2022 9:26AM [facility] * * *Final Report* [...] bony erosions. DIVISION OF RADIOLOGY Provider, Camilla segura [place] - 10/28/2022 * * *Final Report* * [...] IMPRESSION IMPRESSION: Mild hip degenerative change bilaterally. Stringing Machine Operator: [facility] Transcribe Date/Time: Oct 28 2022 9:25A Dictated by : JAYME RIDER MD This examination was interpreted and the report reviewed and electronically signed by: JAYME RIDER MD on Oct 28 2022 9:26AM [facility] XR HIP BILATERAL 5V PEL/AP/L AT EACH HIPOrdered By: [facility] Provider on 10-28-2022 [facility] Laboratory - CoagulationOrde red By: Basim Velasquez on 10-26-2022 INR Coag (Bld) [Relative time] 2.4 {INR} [facility] Comment on above: Critical Value > 4.0 Whole blood prothrombin time Ordered By: Basim Velasquez on 10-26-2022 PT Coag (Bld) [Time] 25.8 s 11.7-14.9 [facility] XR HIP BILATERAL 5V PEL/AP/L AT EACH HIPon 10-26-2022 Radiology Study observation (narrative) [facility] Laboratory - CoagulationOrde red By: Basim Velasquez on 10-11-2022 INR Coag (Bld) [Relative time] 3.2 {INR} [facility] Comment on above: Critical Value > 4.0 Whole blood prothrombin time Ordered By: Basim Velasquez on 10-11-2022 PT Coag (Bld) [Time] 34.6 s 11.7-14.9 [facility] Laboratory - CoagulationOrde red By: Basim Velasquez on 09-12-2022 INR Coag (Bld) [Relative time] 2.4 {INR} [facility] Comment on above: Critical Value > 4.0 Whole blood prothrombin time Ordered By: Basim Velasquez on 09-12-2022 PT Coag (Bld) [Time] 25.7 s 11.7-14.9 [facility] INR in Blood by Coagulation assayOrdered By: Basim Velasquez on 08-11-2022 INR Coag (Bld) [Relative time] 2.6 {INR} [facility] Laboratory - CoagulationOrde red By: Basim Velasquez on 08-11-2022 PT Coag (PPP) [Time] 28.3 s 11.7-14.9 [facility] Basophil percentageOrdered B y: Jennifer Tarango on 07-26-2022 Basophil percentage 2.6 mg/dL 2.5-4.9 [facility] Chloride [Moles/Vol] 107 mmol/L 98-107 [facility] Glucose [Mass/Vol] 80 mg/dL 74-106 [facility] Potassium [Moles/Vol] 3.9 mmol/L 3.5-5.1 [facility] Sodium [Moles/Vol] 139 mmol/L 136-145 [facility] Laboratory - Chemistry and C hemistry - challengeOrdered By: Jennifer Tarango on 07-26-2022 CO2 [Moles/Vol] 23.0 mmol/L 21.0-32.0 [facility] Urea nitrogen/Creatinine [Mass ratio] 21.3 mg/mg 10-20 [facility] No Panel InformationOrdered By: Jennifer Tarango on 07-26-2022 Estimated GFR (MDRD) Amer 34 mL/min >60 [facility] Comment on above: GFR Calc Estimated GFR (MDRD) Non-Af Amer 28 mL/min >60 [facility] Comment on above: Non- GFR Calc Serum or plasma albumin scott urement (mass/volume)Ordered By: Jennifer Tarango on 07-26-2022 Albumin [Mass/Vol] 3.8 g/dL 3.2-5.0 [facility] Serum or plasma calcium scott urement (mass/volume)Ordered By: Jennifer Tarango on 07-26-2022 Calcium [Mass/Vol] 9.3 mg/dL 8.5-10.1 [facility] Serum or plasma creatinine m easurement (mass/volume)Ordered By: Jennifer Tarango on 07-26-2022 Creatinine [Mass/Vol] 1.83 mg/dL 0.55-1.02 [facility] Comment on above: The validity of the calculated GFR & GFRAA in patients over 70 years has not been determined. Clinical correlation is essential. Serum or plasma urea nitroge n measurement (mass/volume)Ordered By: Jennifer Tarango on 07-26-2022 Urea nitrogen [Mass/Vol] 39 mg/dL 09-06 [facility] Laboratory - CoagulationOrde red By: Basim Velasquez on 07-08-2022 INR Coag (Bld) [Relative time] 2.1 {INR} [facility] Comment on above: Critical Value > 4.0 Whole blood prothrombin time Ordered By: Basim Velasquez on 07-08-2022 PT Coag (Bld) [Time] 23.5 s 11.7-14.9 [facility] Basophil percentageOrdered B y: Dr. Tarango on 06-07-2022 Basophil percentage 1.5 mg/dL 2.5-4.9 [facility] Chloride [Moles/Vol] 109 mmol/L 98-107 [facility] Glucose [Mass/Vol] 82 mg/dL 74-106 [facility] Potassium [Moles/Vol] 4.1 mmol/L 3.5-5.1 [facility] Sodium [Moles/Vol] 136 mmol/L 136-145 [facility] Laboratory - Chemistry and C hemistry - challengeOrdered By: Dr. Tarango on 06-07-2022 CO2 [Moles/Vol] 18.0 mmol/L 21.0-32.0 [facility] Urea nitrogen/Creatinine [Mass ratio] 16.1 mg/mg 10- [facility] No Panel InformationOrdered By: Dr. Tarango on 06-07-2022 Estimated GFR (MDRD) Amer 40 mL/min >60 [facility] Comment on above: GFR Calc Estimated GFR (MDRD) Non-Af Amer 33 mL/min >60 [facility] Comment on above: Non- GFR Calc Serum or plasma albumin scott urement (mass/volume)Ordered By: Dr. Tarango on 06-07-2022 Albumin [Mass/Vol] 3.7 g/dL 3.2-5.0 [facility] Serum or plasma calcium scott urement (mass/volume)Ordered By: Dr. Tarango on 06-07-2022 Calcium [Mass/Vol] 8.7 mg/dL 8.5-10.1 [facility] Serum or plasma creatinine m easurement (mass/volume)Ordered By: Dr. Tarango on 06-07-2022 Creatinine [Mass/Vol] 1.61 mg/dL 0.55-1.02 [facility] Comment on above: The validity of the calculated GFR & GFRAA in patients over 70 years has not been determined. Clinical correlation is essential. Serum or plasma urea nitroge n measurement (mass/volume)Ordered By: Dr. Tarango on 06-07-2022 Urea nitrogen [Mass/Vol] 26 mg/dL - [facility] Basophil percentageOrdered B y: Dr. Tarango on 05-31-2022 Basophil percentage 2.9 mg/dL 2.5-4.9 [facility] Chloride [Moles/Vol] 109 mmol/L 98-107 [facility] Glucose [Mass/Vol] 98 mg/dL 74-106 [facility] Potassium [Moles/Vol] 3.9 mmol/L 3.5-5.1 [facility] Comment on above: Slight Hemolysis, Re sult may be falsely increased. Sodium [Moles/Vol] 139 mmol/L 136-145 [facility] Laboratory - Chemistry and C hemistry - challengeOrdered By: Dr. Tarango on 05-31-2022 CO2 [Moles/Vol] 24.0 mmol/L 21.0-32.0 [facility] Urea nitrogen/Creatinine [Mass ratio] 14.5 mg/mg 10-20 [facility] No Panel InformationOrdered By: Dr. aTrango on 05-31-2022 Estimated GFR (MDRD) Amer 28 mL/min >60 [facility] Comment on above: GFR Calc Estimated GFR (MDRD) Non-Af Amer 23 mL/min >60 [facility] Comment on above: Non- GFR Calc Serum or plasma albumin scott urement (mass/volume)Ordered By: Dr. Tarango on 05-31-2022 Albumin [Mass/Vol] 3.5 g/dL 3.2-5.0 [facility] Serum or plasma calcium scott urement (mass/volume)Ordered By: Dr. Tarango on 05-31-2022 Calcium [Mass/Vol] 9.2 mg/dL 8.5-10.1 [facility] Serum or plasma creatinine m easurement (mass/volume)Ordered By: Dr. Tarango on 05-31-2022 Creatinine [Mass/Vol] 2.20 mg/dL 0.55-1.02 [facility] Comment on above: The validity of the calculated GFR & GFRAA in patients over 70 years has not been determined. Clinical correlation is essential. Serum or plasma urea nitroge n measurement (mass/volume)Ordered By: Dr. Tarango on 05-31-2022 Urea nitrogen [Mass/Vol] 32 mg/dL 7-18 [facility] Laboratory - CoagulationOrde red By: Dr. Marte on 05-09-2022 INR Coag (Bld) [Relative time] 2.4 {INR} [facility] Comment on above: Critical Value > 4.0 Whole blood prothrombin time Ordered By: Dr. Marte on 05-09-2022 PT Coag (Bld) [Time] 25.9 s 11.7-14.9 [facility] Laboratory - CoagulationOrde red By: Dr. Marte on 03-25-2022 INR Coag (Bld) [Relative time] 2.4 {INR} [facility] Comment on above: Critical Value > 4.0 No Panel Informationon 03-25 INR International Normalized Ratio 2.4 [facility] Whole blood prothrombin time Ordered By: Dr. Marte on 03-25-2022 PT Coag (Bld) [Time] 28.3 s 11.7-14.9 [facility] Laboratory - CoagulationOrde red By: Dr. Marte on 03-10-2022 INR Coag (Bld) [Relative time] 3.3 {INR} [facility] Comment on above: Critical Value > 4.0 Whole blood prothrombin time Ordered By: Dr. Marte on 03-10-2022 PT Coag (Bld) [Time] 37.6 s 11.7-14.9 [facility] Laboratory - CoagulationOrde red By: Dr. Marte on 02-15-2022 INR Coag (Bld) [Relative time] 1.0 {INR} [facility] Comment on above: Critical Value > 4.0 Whole blood prothrombin time Ordered By: Dr. Marte on 02-15-2022 PT Coag (Bld) [Time] 13.0 s 11.7-14.9 [facility] Laboratory - Coagulationon 1 03-30-2021 INR Coag (Bld) [Relative time] 1.7 {INR} [facility] Work Phone: Comment on above: Critical Value > 4.0 Whole blood prothrombin time on 01-27-2022 PT Coag (Bld) [Time] 20.8 s 11.7-14.9 [facility] Work Phone: Basophil percentageOrdered B y: Basim Velasquez on 01-25-2022 Chloride [Moles/Vol] 105 mmol/L 98-107 [facility] Glucose [Mass/Vol] 104 mg/dL 74-106 [facility] Comment on above: Fasting Glucose resu lt from 100 to 125 mg/dL suggests IMPAIRED HOMEOSTASIS per A.D.A. criteria. Potassium [Moles/Vol] 4.1 mmol/L 3.5-5.1 [facility] Sodium [Moles/Vol] 138 mmol/L 136-145 [facility] INR in Blood by Coagulation assayOrdered By: Dr. Marte on 01-25-2022 INR Coag (Bld) [Relative time] 11.9 {INR} [facility] Comment on above: ACRITICAL VALUE VERI FIED. CALLED TO RONNIE HAWKINS ([facility])01/25/22 1337 Omar BabcockRESULTS READ BACK BY SAME. Laboratory - Chemistry and C hemistry - challengeOrdered By: Basim Velasquez on 01-25-2022 CO2 [Moles/Vol] 26.0 mmol/L 21.0-32.0 [facility] Urea nitrogen/Creatinine [Mass ratio] 15.2 mg/mg 10-20 [facility] Laboratory - CoagulationOrde red By: Dr. Marte on 01-25-2022 PT Coag (PPP) [Time] 92.3 s 11.7-14.9 [facility] No Panel InformationOrdered By: Basim Velasquez on 01-25-2022 Estimated GFR (MDRD) Amer 34 mL/min >60 [facility] Comment on above: GFR Calc Estimated GFR (MDRD) Non-Af Amer 28 mL/min >60 [facility] Comment on above: Non- GFR Calc No Panel InformationOrdered By: Dr. Vann on 01-25-2022 Vitamin D 25-Hydroxy 39.0 ng/mL [facility] Comment on above: Vitamin D 25(OH) Sta tus Range Deficiency <20 ng/mL (50nmol/L) Insufficiency 20 - 30 ng/mL (50 - 75 nmol/L) Sufficiency 30 - 100 ng/mL (75 - 250 nmol/L) Toxicity >100 ng/mL (>250 nmol/L) Serum or plasma calcium scott urement (mass/volume)Ordered By: Basim Velasquez on 01-25-2022 Calcium [Mass/Vol] 9.3 mg/dL 8.5-10.1 [facility] Serum or plasma creatinine m easurement (mass/volume)Ordered By: Basim Velasquez on 01-25-2022 Creatinine [Mass/Vol] 1.84 mg/dL 0.55-1.02 [facility] Comment on above: The validity of the calculated GFR & GFRAA in patients over 70 years has not been determined. Clinical correlation is essential. Serum or plasma urea nitroge n measurement (mass/volume)Ordered By: Basim Velasquez on 01-25-2022 Urea nitrogen [Mass/Vol] 28 mg/dL 7-18 [facility] Thin prep Papanicolaou smear with manual screeningOrdered By: Basim Velasquez on 01-25-2022 Thin prep Papanicolaou smear with manual screening 7 5-15 [facility] Laboratory - CoagulationOrde red By: Dr. Marte on 12-28-2021 INR Coag (Bld) [Relative time] 2.3 {INR} [facility] Comment on above: Critical Value > 4.0 Whole blood prothrombin time Ordered By: Dr. Marte on 12-28-2021 PT Coag (Bld) [Time] 26.4 s 11.7-14.9 [facility] TAE SCREENINGon 12-08-2021 [facility] Culture, urineOrdered By: Dr Alaina Tarango on 11-26-2021 Bacteria identified Cx Nom (U) Escherichia coli [facility] Basophil percentageOrdered B y: Dr. Tarango on 11-24-2021 Basophil percentage 2.3 mg/dL 2.5-4.9 [facility] Chloride [Moles/Vol] 111 mmol/L 98-107 [facility] Glucose [Mass/Vol] 80 mg/dL 74-106 [facility] Potassium [Moles/Vol] 4.5 mmol/L 3.5-5.1 [facility] Sodium [Moles/Vol] 141 mmol/L 136-145 [facility] Laboratory - Chemistry and C hemistry - challengeOrdered By: Dr. Tarango on 11-24-2021 CO2 [Moles/Vol] 22.0 mmol/L 21.0-32.0 [facility] Urea nitrogen/Creatinine [Mass ratio] 18.7 mg/mg 12-09 [facility] No Panel InformationOrdered By: Dr. Tarango on 11-24-2021 Estimated GFR (MDRD) Amer 42 mL/min >60 [facility] Comment on above: GFR Calc Estimated GFR (MDRD) Non-Af Amer 34 mL/min >60 [facility] Comment on above: Non- GFR Calc Serum or plasma albumin scott urement (mass/volume)Ordered By: Dr. Tarango on 11-24-2021 Albumin [Mass/Vol] 3.4 g/dL 3.2-5.0 [facility] Serum or plasma calcium scott urement (mass/volume)Ordered By: Dr. Tarango on 11-24-2021 Calcium [Mass/Vol] 9.3 mg/dL 8.5-10.1 [facility] Serum or plasma creatinine m easurement (mass/volume)Ordered By: Dr. Tarango on 11-24-2021 Creatinine [Mass/Vol] 1.55 mg/dL 0.55-1.02 [facility] Comment on above: The validity of the calculated GFR & GFRAA in patients over 70 years has not been determined. Clinical correlation is essential. Serum or plasma urea nitroge n measurement (mass/volume)Ordered By: Dr. Tarango on 11-24-2021 Urea nitrogen [Mass/Vol] 29 mg/dL 7-18 [facility] Absolute lymphocyte counton 11-18-2021 Lymphocytes Auto (Unsp spec) [#/Vol] 1.02 10*3/uL 0.83-4.51 [facility] Work Phone: Activated partial thrombopla stin time (aPTT) in platelet poor plasma by coagulation aon 11-18-2021 aPTT Coag (PPP) [Time] 80.0 s 24.1-36.2 [facility] Work Phone: Basophil percentageon 2021 Basophils/100 WBC (Bld) 0.2 % 0-1 [facility] Work Phone: Chloride [Moles/Vol] 113 mmol/L 98-107 [facility] Work Phone: Eosinophils/100 WBC (Bld) 0.0 % 0-5 [facility] Work Phone: Glucose [Mass/Vol] 157 mg/dL 74-106 [facility] Work Phone: Comment on above: Fasting Glucose resu lt greater than or equal to 126 mg/dL suggests DIABETES MELLITUS per A.D.A. criteria. Neutrophils (Bld) [#/Vol] 8.5 10*3/uL 2.0-7.7 [facility] Work Phone: Neutrophils/100 WBC (Bld) 82.3 % 47-70 [facility] Work Phone: Potassium [Moles/Vol] 4.0 mmol/L 3.5-5.1 [facility] Work Phone: Sodium [Moles/Vol] 142 mmol/L 136-145 [facility] Work Phone: WBC (Bld) [#/Vol] 10.3 10*3/uL 4.4-11.0 [facility] Work Phone: Blood erythrocytes count (nu mber/volume)on 11-18-2021 RBC (Bld) [#/Vol] 4.15 10*6/uL 4.2-5.4 [facility] Work Phone: Blood hemoglobin measurement (mass/volume)on 11-18-2021 Hemoglobin (Bld) [Mass/Vol] 12.4 g/dL 12.0-15.0 [facility] Work Phone: [phone] Blood lymphocytes/100 leukoc yteson 11-18-2021 Lymphocytes/100 WBC (Bld) 9.9 % 19-41 [facility] Work Phone: Blood monocytes/100 leukocyt eson 11-18-2021 Monocytes/100 WBC (Bld) 7.2 % 0-10 [facility] Work Phone: Blood platelet mean volumeon 11-18-2021 Platelet mean volume (Bld) [Entitic vol] 11.6 fL 6.2-12.0 [facility] Work Phone: Determination of erythrocyte mean corpuscular volume (MCV)on 11-18-2021 MCV (RBC) [Entitic vol] 90.6 fL 81-99 [facility] Work Phone: Hematocrit Auto (Bld) [Volum e fraction]on 11-18-2021 Hematocrit (Bld) [Volume fraction] 37.6 % 37-47 [facility] Work Phone: INR in Blood by Coagulation assayon 11-18-2021 INR Coag (Bld) [Relative time] 2.2 {INR} [facility] Work Phone: Laboratory - Chemistry and C hemistry - challengeon 11-18-2021 CO2 [Moles/Vol] 18.0 mmol/L 21.0-32.0 [facility] Work Phone: Urea nitrogen/Creatinine [Mass ratio] 26.5 mg/mg 10-20 [facility] Work Phone: Laboratory - Coagulationon 0 11-18-2021 PT Coag (PPP) [Time] 24.0 s 11.7-14.9 [facility] Work Phone: Laboratory - Hematology and Cell countson 11-18-2021 Erythrocyte distribution width (RBC) [Entitic vol] 48.8 fL 35.1-43.9 [facility] Work Phone: Erythrocyte distribution width (RBC) [Ratio] 14.6 % 11.6-14.6 [facility] Work Phone: Immature granulocytes/100 WBC (Bld) 0.400 % 0.0-0.9 [facility] Work Phone: Comment on above: IG% - Immature Granu locytes (promyelocytes, myelocytes and metamyelocytes) > 1% indicates that a LEFT SHIFT is Present. MCH (RBC) [Entitic mass] 29.9 pg 27.0-32.0 [facility] Work Phone: Nucleated RBC/100 WBC (Bld) [Ratio] 0 % 0-5 [facility] Work Phone: MCHC Auto (RBC) [Mass/Vol]on 11-18-2021 MCHC (RBC) [Mass/Vol] 33.0 g/dL 32-36 [facility] Work Phone: No Panel Informationon 11-18 Estimated Creatinine Clearance Calc 22.09 ml/min [facility] Work Phone: Estimated GFR (MDRD) Amer 38 mL/min >60 [facility] Work Phone: Comment on above: GFR Calc Estimated GFR (MDRD) Non-Af Amer 32 mL/min >60 [facility] Work Phone: Comment on above: Non- GFR Calc Platelets bldon 11-18-2021 Platelets (Bld) [#/Vol] 190 10*3/uL 150-450 [facility] Work Phone: Serum or plasma calcium scott urement (mass/volume)on 11-18-2021 Calcium [Mass/Vol] 7.9 mg/dL 8.5-10.1 [facility] Work Phone: Serum or plasma creatinine m easurement (mass/volume)on 11-18-2021 Creatinine [Mass/Vol] 1.66 mg/dL 0.55-1.02 [facility] Work Phone: Comment on above: The validity of the calculated GFR & GFRAA in patients over 70 years has not been determined. Clinical correlation is essential. Serum or plasma urea nitroge n measurement (mass/volume)on 11-18-2021 Urea nitrogen [Mass/Vol] 44 mg/dL 7-18 [facility] Work Phone: Thin prep Papanicolaou smear with manual screeningon 11-18-2021 Thin prep Papanicolaou smear with manual screening 11 5-15 [facility] Work Phone: Basophil percentageon 2021 Basophil percentage >100 SEEN /hpf 0-5 [facility] Work Phone: Lactate [Moles/Vol] 1.0 mmol/L 0.4-2.0 [facility] Work Phone: Bilirubin Test strip Ql (U)o n 11-17-2021 Bilirubin Ql (U) Negative Negative [facility] Work Phone: Ketones Test strip Ql (U)on 11-17-2021 Ketones Ql (U) 15 mg/dl Negative [facility] Work Phone: Mucus LM Ql (Urine sed)on Mucus Ql (Urine sed) 0 SEEN /hpf [facility] Work Phone: Nitrite Test strip Ql (U)on 11-17-2021 Nitrite Ql (U) Negative Negative [facility] Work Phone: No Panel Informationon 11-17 Troponin I High Sensitivity 482 pg/mL 3.0-54.0 [facility] Work Phone: Comment on above: Critical Result(s) C alled at: 10:36:40 11/17/2021 by: Jarett Hernandez to Bhargavi HAWKINS (ICU). Results read back by same. Please Note: New Test Units and Gender Specific Reference Ranges. For more information see Policy Stat Procedure [place] High Sensitivity Troponin (TNIH) and attachments. Protein Test strip Ql (U)on 11-17-2021 Protein Ql (U) 15 mg/dl Negative [facility] Work Phone: Squamous epithelial cells de tection in urine sediment by light microscopyon 11-17-2021 Epithelial cells.squamous LM Ql (Urine sed) 0-5 SEEN /hpf 5-10 [facility] Work Phone: Urine blood detectionon 10-22 RBC Ql (U) 10 /ul Negative [facility] Work Phone: RBC Ql (U) 0-5 SEEN /hpf 0-5 [facility] Work Phone: Urine clarityon 11-17-2021 Clarity (U) Sl. Cloudy Clear [facility] Work Phone: Urine color determinationon 11-17-2021 Color (U) Yellow Yellow [facility] Work Phone: Urine glucose detectionon Glucose Ql (U) Normal mg/dl Normal [facility] Work Phone: Urine leukocyte esterase det ection by dipstickon 11-17-2021 Leukocyte esterase Test strip Ql (U) 500 /ul Negative [facility] Work Phone: Urine pHon 11-17-2021 pH (U) 5.0 [pH] 5.0 - 8.0 [facility] Work Phone: Urine sediment bacteria coun t by microscopy (number/high power field)on 11-17-2021 Bacteria LM.HPF (Urine sed) [#/Area] RARE /hpf None Seen [facility] Work Phone: Urine specific gravity measu rementon 11-17-2021 Specific gravity (U) [Rel density] 1.015 1.002-1.030 [facility] Work Phone: Urobilinogen Auto test strip Ql (U)on 11-17-2021 Urobilinogen Ql (U) Normal mg/dl Normal [facility] Work Phone: Absolute lymphocyte counton 11-16-2021 Lymphocytes Auto (Unsp spec) [#/Vol] 3.63 10*3/uL 0.83-4.51 [facility] Work Phone: [phone] Basophil percentageon 2021 Basophils/100 WBC (Bld) 0.9 % 0-1 [facility] Work Phone: Bilirubin [Mass/Vol] 1.00 mg/dL 0.20-1.00 [facility] Work Phone: Comment on above: For patients on eltr ombopag therapy, use of Dimension [place] TBIL is not recommended. Chloride [Moles/Vol] 107 mmol/L 98-107 [facility] Work Phone: Eosinophils/100 WBC (Bld) 2.2 % 0-5 [facility] Work Phone: Glucose [Mass/Vol] 94 mg/dL 74-106 [facility] Work Phone: Neutrophils (Bld) [#/Vol] 6.3 10*3/uL 2.0-7.7 [facility] Work Phone: Neutrophils/100 WBC (Bld) 51.5 % 47-70 [facility] Work Phone: Potassium [Moles/Vol] 4.6 mmol/L 3.5-5.1 [facility] Work Phone: Protein [Mass/Vol] 6.4 g/dL 6.4-8.2 [facility] Work Phone: Sodium [Moles/Vol] 140 mmol/L 136-145 [facility] Work Phone: WBC (Bld) [#/Vol] 12.3 10*3/uL 4.4-11.0 [facility] Work Phone: Blood erythrocytes count (nu mber/volume)on 11-16-2021 RBC (Bld) [#/Vol] 5.36 10*6/uL 4.2-5.4 [facility] Work Phone: Blood hemoglobin measurement (mass/volume)on 11-16-2021 Hemoglobin (Bld) [Mass/Vol] 16.4 g/dL 12.0-15.0 [facility] Work Phone: Blood lymphocytes/100 leukoc yteson 11-16-2021 Lymphocytes/100 WBC (Bld) 29.6 % 19-41 [facility] Work Phone: Blood manual differential co mment interpretation (narrative result)on 11-16-2021 Manual differential comment Rafael (Bld) [Interp] SEE COMMENT [facility] Work Phone: Comment on above: MONOCYTOSIS NOTED Blood monocytes/100 leukocyt eson 11-16-2021 Monocytes/100 WBC (Bld) 14.8 % 0-10 [facility] Work Phone: Blood platelet adequacy dete ction by light microscopyon 11-16-2021 Platelets LM Ql (Bld) [facility]: Blood platelet mean volumeon 11-16-2021 Platelet mean volume (Bld) [Entitic vol] 11.8 fL 6.2-12.0 [facility] Work Phone: Determination of erythrocyte mean corpuscular volume (MCV)on 11-16-2021 MCV (RBC) [Entitic vol] 92.7 fL 81-99 [facility] Work Phone: Hematocrit Auto (Bld) [Volum e fraction]on 11-16-2021 Hematocrit (Bld) [Volume fraction] 49.7 % 37-47 [facility] Work Phone: INR in Blood by Coagulation assayon 11-16-2021 INR Coag (Bld) [Relative time] 1.5 {INR} [facility] Work Phone: Laboratory - Chemistry and C hemistry - challengeon 11-16-2021 ALP [Catalytic activity/Vol] 89 U/L 45-117 [facility] Work Phone: ALT [Catalytic activity/Vol] 25 U/L 13-56 [facility] Work Phone: CO2 [Moles/Vol] 23.0 mmol/L 21.0-32.0 [facility] Work Phone: Globulin (S) [Mass/Vol] 3.3 g/dL 2.2-4.2 [facility] Work Phone: Urea nitrogen/Creatinine [Mass ratio] 14.1 mg/mg 10-20 [facility] Work Phone: Laboratory - Coagulationon 0 11-16-2021 PT Coag (PPP) [Time] 17.8 s 11.7-14.9 [facility] Work Phone: [phone] Laboratory - Hematology and Cell countson 11-16-2021 Anisocytosis Ql (Bld) RARE [facility] Work Phone: Erythrocyte distribution width (RBC) [Entitic vol] 51.6 fL 35.1-43.9 [facility] Work Phone: Erythrocyte distribution width (RBC) [Ratio] 15.1 % 11.6-14.6 [facility] Work Phone: [phone] Immature granulocytes/100 WBC (Bld) 1.000 % 0.0-0.9 [facility] Work Phone: Comment on above: IG% - Immature Granu locytes (promyelocytes, myelocytes and metamyelocytes) > 1% indicates that a LEFT SHIFT is Present. MCH (RBC) [Entitic mass] 30.6 pg 27.0-32.0 [facility] Work Phone: Nucleated RBC/100 WBC (Bld) [Ratio] 0 % 0-5 [facility] Work Phone: MCHC Auto (RBC) [Mass/Vol]on 11-16-2021 MCHC (RBC) [Mass/Vol] 33.0 g/dL 32-36 [facility] Work Phone: Macrocytes detectionon 11-16 Macrocytes Ql (Bld) [facility]: No Panel Informationon 11-16 Estimated Creatinine Clearance Calc 13.63 ml/min [facility] Work Phone: Estimated GFR (MDRD) Amer 22 mL/min >60 [facility] Work Phone: Comment on above: GFR Calc Estimated GFR (MDRD) Non-Af Amer 18 mL/min >60 [facility] Work Phone: Comment on above: Non- GFR Calc Troponin I High Sensitivity 619 pg/mL 3.0-54.0 [facility] Work Phone: Comment on above: Critical Result(s) C alled at: 23:23:33 11/16/2021 by: BALDO BARRETO TO DONALD STOKES. Results read back by same. Please Note: New Test Units and Gender Specific Reference Ranges. For more information see Policy Stat Procedure [place] High Sensitivity Troponin (TNIH) and attachments. Platelets bldon 11-16-2021 Platelets (Bld) [#/Vol] 220 10*3/uL 150-450 [facility] Work Phone: RBC morphologyon 11-16-2021 RBC morphology finding Nom (Bld) N CHROM NORMAL NORM C&C [facility] Work Phone: Review by pathologiston 10-22 Pathologist review Rafael (Unsp spec) [Interp] Agnieszka venegas [facility] Work Phone: Pathologist review Rafael (Unsp spec) [Interp] Reviewed [facility] Work Phone: Comment on above: Previous reported re sult: Agnieszka venegas Edited by: RGOOD on 11/17/21:1214Leukocytosis. PolycythemiaClinical correlation necessary.Alber Mccracken M.D. 11/17/21 AMENDED REPORT 11/17/21 1214 PATH REV previously reported as: June Serum or plasma albumin scott urement (mass/volume)on 11-16-2021 Albumin [Mass/Vol] 3.1 g/dL 3.2-5.0 [facility] Work Phone: Serum or plasma albumin/glob ulin mass ratioon 11-16-2021 Albumin/Globulin [Mass ratio] 0.9 {ratio} 0.9-2.4 [facility] Work Phone: Serum or plasma calcium scott urement (mass/volume)on 11-16-2021 Calcium [Mass/Vol] 9.9 mg/dL 8.5-10.1 [facility] Work Phone: Serum or plasma creatinine m easurement (mass/volume)on 11-16-2021 Creatinine [Mass/Vol] 2.69 mg/dL 0.55-1.02 [facility] Work Phone: Comment on above: The validity of the calculated GFR & GFRAA in patients over 70 years has not been determined. Clinical correlation is essential. Serum or plasma urea nitroge n measurement (mass/volume)on 11-16-2021 Urea nitrogen [Mass/Vol] 38 mg/dL 7-18 [facility] Work Phone: Thin prep Papanicolaou smear with manual screeningon 11-16-2021 Thin prep Papanicolaou smear with manual screening 29 U/L 15-37 [facility] Work Phone: Thin prep Papanicolaou smear with manual screening 10 5-15 [facility] Work Phone: Laboratory - Coagulationon 0 11-02-2021 INR Coag (Bld) [Relative time] 2.6 {INR} [facility] Work Phone: Comment on above: Critical Value > 4.0 Whole blood prothrombin time on 11-02-2021 PT Coag (Bld) [Time] 30.3 s 11.7-14.9 [facility] Work Phone: INR in Blood by Coagulation assayon 09-28-2021 INR Coag (Bld) [Relative time] 2.1 {INR} [facility] Work Phone: Laboratory - Coagulationon 0 09-28-2021 PT Coag (PPP) [Time] 23.2 s 11.7-14.9 [facility] Work Phone: Laboratory - Coagulationon 0 08-30-2021 INR Coag (Bld) [Relative time] 2.2 {INR} [facility] Work Phone: Comment on above: Critical Value > 4.0 Whole blood prothrombin time on 08-30-2021 PT Coag (Bld) [Time] 26.3 s 11.7-14.9 [facility] Work Phone: Laboratory - Coagulationon 0 07-26-2021 INR Coag (Bld) [Relative time] 2.7 {INR} [facility] Work Phone: Comment on above: Critical Value > 4.0 Whole blood prothrombin time on 07-26-2021 PT Coag (Bld) [Time] 30.6 s 11.7-14.9 [facility] Work Phone: Laboratory - Coagulationon 0 06-25-2021 INR Coag (Bld) [Relative time] 2.2 {INR} [facility] Work Phone: Comment on above: Critical Value > 4.0 Whole blood prothrombin time on 06-25-2021 PT Coag (Bld) [Time] 26.3 s 11.7-14.9 [facility] Work Phone: Laboratory - Coagulationon 0 05-27-2021 INR Coag (Bld) [Relative time] 2.7 {INR} [facility] Work Phone: Comment on above: Critical Value > 4.0 Whole blood prothrombin time on 05-27-2021 PT Coag (Bld) [Time] 31.5 s 11.7-14.9 [facility] Work Phone: Laboratory - Coagulationon 0 04-29-2021 INR Coag (Bld) [Relative time] 2.3 {INR} [facility] Work Phone: Comment on above: Critical Value > 4.0 Whole blood prothrombin time on 04-29-2021 PT Coag (Bld) [Time] 27.2 s 11.7-14.9 [facility] Work Phone: Laboratory - Coagulationon 0 03-31-2021 INR Coag (Bld) [Relative time] 2.4 {INR} [facility] Work Phone: Comment on above: Critical Value > 4.0 Whole blood prothrombin time on 03-31-2021 PT Coag (Bld) [Time] 27.6 s 11.9-14.4 [facility] Work Phone: Laboratory - Coagulationon 0 03-02-2021 INR Coag (Bld) [Relative time] 2.0 {INR} [facility] Work Phone: Comment on above: Critical Value > 4.0 Whole blood prothrombin time on 03-02-2021 PT Coag (Bld) [Time] 23.6 s 11.9-14.4 [facility] Work Phone: Laboratory - Coagulationon 1 04-04-2020 INR Coag (Bld) [Relative time] 2.0 {INR} [facility] Work Phone: Comment on above: Critical Value > 4.0 Whole blood prothrombin time on 02-01-2021 PT Coag (Bld) [Time] 23.0 s 11.9-14.4 [facility] Work Phone: CBCon 05-08-2020 Erythrocyte distribution width (RBC) [Ratio] 15.7 % High 11.5 - 14.5 [facility] Comment on above: Performed By: #### C BC #### [address] [id number] Hematocrit (Bld) [Volume fraction] 29.4 % Low 36.0 - 46.0 [facility] Comment on above: Performed By: #### C BC #### [address] [id number] Hemoglobin (Bld) [Mass/Vol] 9.5 g/dL Low 12.0 - 16.0 [facility] Comment on above: Performed By: #### C BC #### [address] [id number] MCHC (RBC) [Mass/Vol] 32.3 g/dL Normal 32.0 - 36.0 [facility] Comment on above: Performed By: #### C BC #### [address] [id number] MCV (RBC) [Entitic vol] 92 fL Normal 80 - 100 [facility] Comment on above: Performed By: #### C BC #### [address] [id number] Platelets (Bld) [#/Vol] 292 10*3/uL Normal 150 - 450 [facility] Comment on above: Performed By: #### C BC #### [address] [id number] RBC (Bld) [#/Vol] 3.21 x10E12/L Low 4.00 - 5.20 [facility] Comment on above: Performed By: #### C BC #### [address] [id number] WBC (Bld) [#/Vol] 16.2 10*3/uL High 4.4 - 11.3 [facility] Comment on above: Performed By: #### C BC #### [address] [id number] COMPREHENSIVE PANELon 2020 Albumin [Mass/Vol] 2.8 g/dL Low 3.4 - 5.0 [facility] Comment on above: Performed By: #### C A #### [address] [place] [id number] ALP [Catalytic activity/Vol] 85 U/L Normal 33 - 136 [facility] Comment on above: Performed By: #### C A #### [address] [id number] ALT [Catalytic activity/Vol] 28 U/L Normal 7 - 45 [facility] Comment on above: Result Comment: Liz ents treated with Sulfasalazine may generate falsely decreased results for ALT. Performed By: #### C A #### [address] [id number] Anion gap [Moles/Vol] 13 mmol/L Normal 10 - 20 [facility] Comment on above: Performed By: #### C A #### [address] [id number] AST [Catalytic activity/Vol] 17 U/L Normal 9 - 39 [facility] Comment on above: Performed By: #### C A #### [address] [id number] Bilirubin [Mass/Vol] 0.8 mg/dL Normal 0.0 - 1.2 [facility] Comment on above: Performed By: #### C A #### [address] [id number] Calcium [Mass/Vol] 9.0 mg/dL Normal 8.6 - 10.3 [facility] Comment on above: Performed By: #### C A #### [address] [id number] Chloride [Moles/Vol] 101 mmol/L Normal 98 - 107 [facility] Comment on above: Performed By: #### C A #### [address] [id number] Creatinine [Mass/Vol] 1.87 mg/dL High 0.50 - 1.05 [facility] Comment on above: Performed By: #### C A #### [address] [id number] GFR- AM. 31 mL/min/1.73m2 Abnormal >60 [facility] Comment on above: Result Comment: CALC ULATIONS OF ESTIMATED GFR ARE PERFORMED USING THE MDRD STUDY EQUATION FOR THE IDMS-TRACEABLE CREATININE METHODS. CLIN CHEM 2007;53:766-72 Performed By: #### C A #### [address] [id number] GFR-NON AM. 26 mL/min/1.73m2 Abnormal >60 [facility] Comment on above: Performed By: #### C A #### [address] [id number] Glucose [Mass/Vol] 92 mg/dL Normal 74 - 99 [facility] Comment on above: Performed By: #### C A #### [address] [id number] HCO3 (Bld) [Moles/Vol] 30 mmol/L Normal 21 - 32 [facility] Comment on above: Performed By: #### C A #### [address] [id number] Potassium [Moles/Vol] 4.0 mmol/L Normal 3.5 - 5.3 [facility] Comment on above: Performed By: #### C A #### [address] [id number] Protein [Mass/Vol] 4.8 g/dL Low 6.4 - 8.2 [facility] Comment on above: Performed By: #### C A #### [address] [id number] Sodium [Moles/Vol] 140 mmol/L Normal 136 - 145 [facility] Comment on above: Performed By: #### C A #### [address] [id number] Urea nitrogen [Mass/Vol] 50 mg/dL High 6 - 23 [facility] Comment on above: Performed By: #### C A #### [address] [id number] Daily Progress Note-Endocrin litzy 05-08-2020 Daily Progress [...] reviewed Objective Data: Objective Information: T PRBPSpO2 [id number]/9499% Date/Time05/08 14: 14: 14: 14: 14:14 Range(35.8C - 37.6C ) (71 - 80 ) (18 - 20 ) (143 - 174 )/ (86 - 99 ) (95% - 99% ) Highest temp of 37.6 C was recorded at 05/08 7:55 Pain reported at 05/08 9:31: 0 = None ---- Intake and Output ----- Mn/Dy/Year TimeIntakeOutputNet May 08, 2020 2:00 [id number] May 08, 2020 6:00 [id number] May 07, 2020 10:00 [id number] The Intake and Output Totals for the last 24 hours are: [facility] [id number] Physical Exam by System: Constitutional: Well developed, [...] laboratory results: Comprehensive Metabolic Panel Trending View [id number] 05:22:00 07-May-2020 05:42:00 Glucose, Serum92 86 NA140 136 K4.0 4.0 CL101 99 Bicarbonate, Serum30 27 Anion Gap, Serum13 14 BUN50 H 55 H CREAT1.87 H 1.95 H GFR-Non [id number] A 25 A GFR- Oobxctzp23 A 30 A Calcium, Serum9.0 9.0 ALB2.8 [...] Updated: 08-May-2020 16:01 by Alexander Gregory) Normal [facility] Daily Progress Note-General Internal Medicineon 05-08-2020 Daily Progress Note-General Internal Medicine Service: General Internal Medicine Subjective Data: LINDA PERALTA is a 75 year old Female who is Hospital Day # 7. And examined, denies any fever, chills, chest pain, shortness of breath. Feels much improved. Rest of the ROS is negative. Objective Data: Objective Information: T PRBPSpO2 Value37.69604951/9699% Date/Time05/08 7: 7: 7: 7: 7:55 Range(35.8C - 37.6C ) (71 - 82 ) (18 - 20 ) (131 - 174 )/ (86 - 99 ) (95% - 99% ) Highest temp of 37.6 C was recorded at 05/08 7:55 Pain reported at 05/08 9:31: 0 = None ---- Intake and Output ----- Mn/Dy/Year TimeIntakeOutputNet May 08, 2020 6:00 [id number] May 07, 2020 10:00 [id number] May 07, 2020 2:00 [id number] The Intake and Output Totals for the last 24 hours are: IntakeOutputNet [id number] Physical Exam by System: Constitutional: Well developed, [...] Updated: 08-May-2020 11:38 by Baldo South) Normal [facility] Daily Progress Note-Infectio us Diseaseon 05-08-2020 [...] 7. Objective Data: Objective Information: T PRBPSpO2 Value36.70889522/9499% Date/Time05/08 14: 14: 14: 14: 14:14 Range(35.8C - 37.6C ) (71 - 80 ) (18 - 20 ) (143 - 174 )/ (86 - 99 ) (95% - 99% ) Highest temp of 37.6 C was recorded at 05/08 7:55 Pain reported at 05/08 9:31: 0 = None ---- Intake and Output ----- Mn/Dy/Year TimeIntakeOutputNet May 08, 2020 2:00 [id number] May 08, 2020 6:00 [id number] May 07, 2020 10:00 [id number] The Intake and Output Totals for the last 24 hours are: IntakeOutputNet [id number] T PRBPSpO2 Value36.73345726/9499% Date/Time05/08 14: 14: 14: 14: 14:14 Range(35.8C [...] RA Area A4C: 16.4 cm2 RA Major Van A4C: 5.0 cm M-MODE MEASUREMENTS: Normal Ranges: [...] 1.2 m/s (0.6-0.9m/s) PV Max P.2 mmHg [id number] Tremayne Mcleod MD Electronically signed on 05/02/2020 [...] Assessment: Aspiration pneumonia UTI Electronic Signatures: Alberto Allred () (Signed 08-May-2020 14:34) Authored: Service, History of Present Illness, Subjective Data, Objective Data, Assessment and Plan, Note Completion Last Updated: 08-May-2020 14:34 by Alberto Allred) [facility] Daily Progress Note-Nephrolo gyon 05-08-2020 Daily Progress Note-Nephrology Service: Nephrology Subjective Data: LINDA PERALTA is a 75 year old Female who is Hospital Day # 7. renal function improving, pt feeling better. Objective Data: Objective Information: T PRBPSpO2 Value37.60048202/9699% Date/Time05/08 7:5505/08 7: 7:5505/08 7:5505/08 7:55 Range(35.8C - 37.6C ) (71 - 82 ) (18 - 20 ) (131 - 174 )/ (86 - 99 ) (95% - 99% ) Highest temp of 37.6 C was recorded at 05/08 7:55 Pain reported at 05/08 9:31: 0 = None ---- Intake and Output ----- Mn/Dy/Year TimeIntakeOutputNet May 08, 2020 6:00 [id number] May 07, 2020 10:00 [id number] May 07, 2020 2:00 [id number] The Intake and Output Totals for the last 24 hours are: IntakeOutputNet [id number] Constitutional: Alert, in no acute distress HEENT: [...] partial nephrectomy, DVT/PE who was initially at [place] for AMS, hypercalcemia and hypotension now transferred here. 1. 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 Objective Data: Objective Information: T PRBPSpO2 Value36.23042787/9499% Date/Time05/08 14: 14: 14: 14: 14:14 Range(35.8C - 37.6C ) (71 - 80 ) (18 - 20 ) (143 - 174 )/ (86 - 99 ) (95% - 99% ) Highest temp of 37.6 C was recorded at 05/08 7:55 Pain reported at 05/08 9:31: 0 = None ---- Intake and Output ----- Mn/Dy/Year TimeIntakeOutputNet May 08, 2020 2:00 [id number] May 08, 2020 6:00 [id number] May 07, 2020 10:00 [id number] The Intake and Output Totals for the last 24 hours are: IntakeOutputNet [id number] Recent Lab Results: Results: CBC: 05/08/2020 05:22 [...] Last Updated: 08-May-2020 16:22 by Alvin Sawyer) [facility] Order Reconciliationon 05-08 Order Reconciliation Page 1 [...] 1 spray(s) Each Nostril DailyNotes from Pharmacy: [facility] 02-May-2020 02:08 Fluticasone 50 microgram/ Nasal [...] Injectable DOSE = 0.5 mL IntraVenous Push OnceCa.939598 mL/Kg/DOSE x 74.5 Kg = 0.5 mL/Dose [...] be shared with your follow-up providers (doctor, stave cutting supervisor, physical therapist, etc.). Guidelines for a Healthy [...] be shared with your follow-up providers (doctor, stave cutting supervisor, physical therapist, etc.). dupilumab 300 milligram(s) subcutaneous [...] 1 tab(s) orally once a day Normal [facility] CBCon 05-07-2020 Erythrocyte distribution width (RBC) [Ratio] 15.5 % High 11.5 - 14.5 [facility] Comment on above: Performed By: #### C BC ####[facility] [place], [place] [id number] Hematocrit (Bld) [Volume fraction] 30.4 % Low 36.0 - 46.0 [facility] Comment on above: Performed By: #### C BC ####[facility] [place], [place] [id number] Hemoglobin (Bld) [Mass/Vol] 9.8 g/dL Low 12.0 - 16.0 [facility] Comment on above: Performed By: #### C BC ####[address] [id number] MCHC (RBC) [Mass/Vol] 32.2 g/dL Normal 32.0 - 36.0 [facility] Comment on above: Performed By: #### C BC ####[address] [id number] MCV (RBC) [Entitic vol] 92 fL Normal 80 - 100 [facility] Comment on above: Performed By: #### C BC ####[address] [id number] Platelets (Bld) [#/Vol] 279 10*3/uL Normal 150 - 450 [facility] Comment on above: Performed By: #### C BC ####[address] [id number] RBC (Bld) [#/Vol] 3.31 x10E12/L Low 4.00 - 5.20 [facility] Comment on above: Performed By: #### C BC ####[address] [id number] WBC (Bld) [#/Vol] 18.5 10*3/uL High 4.4 - 11.3 [facility] Comment on above: Performed By: #### C BC ####[address] [id number] COMPREHENSIVE PANELon 2020 Albumin [Mass/Vol] 2.9 g/dL Low 3.4 - 5.0 [facility] Comment on above: Performed By: #### C MP #### [address] [id number] ALP [Catalytic activity/Vol] 80 U/L Normal 33 - 136 [facility] Comment on above: Performed By: #### C MP #### [address] [id number] ALT [Catalytic activity/Vol] 31 U/L Normal 7 - 45 [facility] Comment on above: Result Comment: Liz ents treated with Sulfasalazine may generate falsely decreased results for ALT. Performed By: #### C MP #### [address] [id number] Anion gap [Moles/Vol] 14 mmol/L Normal 10 - 20 [facility] Comment on above: Performed By: #### C MP #### [address] [id number] AST [Catalytic activity/Vol] 20 U/L Normal 9 - 39 [facility] Comment on above: Performed By: #### C MP #### [address] [id number] Bilirubin [Mass/Vol] 0.9 mg/dL Normal 0.0 - 1.2 [facility] Comment on above: Performed By: #### C MP #### [address] [id number] Calcium [Mass/Vol] 9.0 mg/dL Normal 8.6 - 10.3 [facility] Comment on above: Performed By: #### C MP #### [address] [id number] Chloride [Moles/Vol] 99 mmol/L Normal 98 - 107 [facility] Comment on above: Performed By: #### C MP #### [address] [id number] Creatinine [Mass/Vol] 1.95 mg/dL High 0.50 - 1.05 [facility] Comment on above: Performed By: #### C MP #### [address] [id number] GFR- AM. 30 mL/min/1.73m2 Abnormal >60 [facility] Comment on above: Result Comment: CALC ULATIONS OF ESTIMATED GFR ARE PERFORMED USING THE MDRD STUDY EQUATION FOR THE IDMS-TRACEABLE CREATININE METHODS. CLIN CHEM 2007;53:766-72 Performed By: #### C MP #### [address] [id number] GFR-NON AM. 25 mL/min/1.73m2 Abnormal >60 [facility] Comment on above: Performed By: #### C MP #### [address] [id number] Glucose [Mass/Vol] 86 mg/dL Normal 74 - 99 [facility] Comment on above: Performed By: #### C MP #### [address] [id number] HCO3 (Bld) [Moles/Vol] 27 mmol/L Normal 21 - 32 [facility] Comment on above: Performed By: #### C MP #### [address] [id number] Potassium [Moles/Vol] 4.0 mmol/L Normal 3.5 - 5.3 [facility] Comment on above: Performed By: #### C MP #### [address] [id number] Protein [Mass/Vol] 5.0 g/dL Low 6.4 - 8.2 [facility] Comment on above: Performed By: #### C MP #### [address] [id number] Sodium [Moles/Vol] 136 mmol/L Normal 136 - 145 [facility] Comment on above: Performed By: #### C MP #### [address] [id number] Urea nitrogen [Mass/Vol] 55 mg/dL High 6 - 23 [facility] Comment on above: Performed By: #### C #### [address] [id number] Daily Progress Note-General Internal Medicineon 05-07-2020 Daily Progress Note-General Internal Medicine Service: General Internal Medicine Subjective Data: LINDA PERALTA is a 75 year old Female who is Hospital Day # 6. Seen and examined, denies any fever, chills, chest pain, shortness of breath. Rest of the ROS is negative. Objective Data: Objective Information: T PRBPSpO2 Value36.66010051/8697% Date/Time05/07 14: 14: 14: 14: 14:03 Range(36C - 36.8C ) (77 - 85 ) (18 - 20 ) (125 - 170 )/ (80 - 98 ) (94% - 97% ) Pain reported at 05/07 12:04: 0 = None ---- Intake and Output ----- Mn/Dy/Year TimeIntakeOutputNet May 07, 2020 2:00 [id number] May 06, 2020 10:00 [id number] The Intake and Output Totals for the last 24 hours are: IntakeOutputNet [id number] Physical Exam by System: Constitutional: Well developed, [...] Last Updated: 07-May-2020 14:49 by Baldo South) [facility] Daily Progress Note-Infectio us Diseaseon 05-07-2020 Daily Progress Note-Infectious Disease Service: Infectious Disease History of Present Illness: History Present Illness: HPI: Possible aspiration pneumonia Recent UTI with Citrobacter No fevers chills sweats minimal cold Subjective Data: LINDA PERALTA is a 75 year old Female who is Hospital Day # 6. Objective Data: Objective Information: T PRBPSpO2 Value36.66826328/9897% Date/Time05/07 8: 8: 8: 8: 8:01 Range(36C - 36.8C ) (77 - 85 ) (18 - 20 ) (125 - 170 )/ (80 - 98 ) (94% - 98% ) Pain reported at 05/07 12:04: 0 = None ---- Intake and Output ----- [facility] May 06, 2020 10:00 [id number] May 06, 2020 2:00 [id number] The Intake and Output Totals for the last 24 hours are: [facility] [id number] T PRBPSpO2 Value36.43859365/9897% Date/Time05/07 8: 8: 8: 8: 8:01 Range(36C [...] RA Area A4C: 16.4 cm2 RA Major Van A4C: 5.0 cm M-MODE MEASUREMENTS: Normal Ranges: [...] 1.2 m/s (0.6-0.9m/s) PV Max P.2 mmHg [id number] Tremayne Mcleod MD Electronically signed on 05/02/2020 [...] Last Updated: 07-May-2020 13:30 by Alberto Allred) Normal [facility] Daily Progress Note-Nephrolo gyon 05-07-2020 Daily Progress Note-Nephrology Service: Nephrology Subjective Data: LINDA PERALTA is a 75 year old Female who is Hospital Day # 6. renal function continues to slowly improve, uric acid and phos improving as well. Objective Data: Objective Information: T PRBPSpO2 Value36.64089169/9897% Date/Time05/07 8: 8: 8: 8: 8:01 Range(36C - 36.8C ) (77 - 85 ) (18 - 20 ) (125 - 170 )/ (80 - 98 ) (94% - 98% ) Pain reported at 05/06 23:56: 0 = None ---- Intake and Output ----- Mn/Dy/Year TimeIntakeOutputNet May 06, 2020 10:00 [id number] May 06, 2020 2:00 [id number] The Intake and Output Totals for the last 24 hours are: IntakeOutputNet [id number] Constitutional: Alert, in no acute distress HEENT: [...] partial nephrectomy, DVT/PE who was initially at [place] for AMS, hypercalcemia and hypotension now transferred here. 1. ANGELA on CKD: previously hypotensive at [place], now hypertensive, also CRS as pt is [...] Updated: 07-May-2020 11:30 by Leigh Billy) Normal [facility] Daily Progress Note-Neurolog yon 05-07-2020 Daily [...] better. Objective Data: Objective Information: T PRBPSpO2 Value36.00157384/8697% Date/Time05/07 19: 19: 19: 19: 19:14 Range(36C - 36.6C ) (77 - 85 ) (20 - 20 ) (131 - 170 )/ (80 - 98 ) (94% - 97% ) Pain reported at 05/07 12:04: 0 = None ---- Intake and Output ----- Mn/Dy/Year TimeIntakeOutputNet May 07, 2020 2:00 [id number] May 06, 2020 10:00 [id number] The Intake and Output Totals for the last 24 hours are: IntakeOutputNet [id number] Physical Exam by System: Neurological: The patient [...] kidney to her brother Sarcoidosis History of [place]'s disease Gout Chronic kidney disease Hyperlipidemia Atopic [...] Last Updated: 07-May-2020 19:58 by Vicky Boyd) [facility] Daily Progress Note-Neurology Service: Neurology Subjective Data: [...] better. Objective Data: Objective Information: T PRBPSpO2 Value36.62412198/8194% Date/Time05/06 19: 19: 19: 19: 19:32 Range(36.6C - 36.8C ) (71 - 85 ) (18 - 18 ) (125 - 162 )/ (81 - 96 ) (88% - 99% ) Pain reported at 05/06 11:17: 0 = None ---- Intake and Output ----- Mn/Dy/Year TimeIntakeOutputNet May 06, 2020 10:00 [id number] May 06, 2020 2:00 [id number] The Intake and Output Totals for the last 24 hours are: IntakeOutputNet [id number] Physical Exam by System: Neurological: The patient [...] kidney to her brother Sarcoidosis History of [place]'s disease Gout Chronic kidney disease Hyperlipidemia Atopic [...] Last Updated: 06-May-2020 22:03 by Vicky Boyd) Normal [facility] Daily Progress Note-Urologyo n 05-07-2020 Daily [...] and listed below Urology progress note for Ruby 3/16/21, Jarrell catheter in place draining yellow clear [...] below. Objective Data: Objective Information: T PRBPSpO2 Value36.12196857/8697% Date/Time05/07 14: 14: 14: 14: 14:03 Range(36C - 36.8C ) (77 - 85 ) (18 - 20 ) (125 - 170 )/ (80 - 98 ) (94% - 97% ) Pain reported at 05/07 12:04: 0 = None ---- Intake and Output ----- [facility] May 07, 2020 2:00 [id number] May 06, 2020 10:00 [id number] The Intake and Output Totals for the last 24 hours are: IntakeOutputNet [id number] T PRBPSpO2 Value36.99386122/8697% Date/Time05/07 14: 14: 14: 14: 14:03 Range(36C - 36.8C ) (77 - 85 ) (18 - 20 ) (125 - 170 )/ (80 - 98 ) (94% - 97% ) Pain reported at 05/07 12:04: 0 = None ---- Intake and Output ----- [facility] May 07, 2020 2:00 [id number] May 06, 2020 10:00 [id number] The Intake and Output Totals for the last 24 hours are: IntakeOutputNet [id number] ---Intake--- Enteral - Oral PO Fluid/Feed (oral): [...] 8.1 H Basic Metabolic Panel Trending View [id number] 16:58:00 06-May-2020 05:38:00 Glucose, [id number] H 100 H NA138 141 K3.9 2.9 LL CL97 L 100 Bicarbonate, Serum31 32 Anion Gap, Serum14 12 BUN57 H 62 H CREAT2.05 H 2.15 H GFR-Non Iinevdhq68 A 22 A GFR- Einqqewu15 A 27 A Calcium, Serum9.0 9.0 Lab [...] Updated: 07-May-2020 16:37 by Alvin Sawyer) Normal [facility] PHOSPHORUSon 05-07-2020 Phosphate [Mass/Vol] 3.3 mg/dL Normal 2.5 - 4.9 [facility] Comment on above: Result Comment: The performance characteristics of phosphorus testing in heparinized plasma have been validated by the individual laboratory site where testing is performed. Testing on heparinized plasma is not approved by the FDA; however, such approval is not necessary. Performed By: #### C A #### [address] [id number] PTH RELATED PROTEINon 2020 Protein [Mass/Vol] 0.5 pmol/L Normal < or = 4.2 [facility] Comment on above: Result Comment: ---- ADDITIONAL INFORMATION This test was developed and its performance characteristics determined by [facility] in a manner consistent with CLIA requirements. This test has not been cleared or approved by the U.S. Food and Drug Administration. Test Performed by: [facility] [address] [place] [address] Rail Technician: Sunny Triplett M.D. Ph.D.; CLIA# [id number] Performed By: #### P R12 #### [facility] [address] [place] [address] Protein [Mass/Vol] 0.8 pmol/L Normal < or = 4.2 [facility] Comment on above: Result Comment: ---- ADDITIONAL INFORMATION This test was developed and its performance characteristics determined by [facility] in a manner consistent with CLIA requirements. This test has not been cleared or approved by the U.S. Food and Drug Administration. Test Performed by: [facility] [address] [place] [address] Rail Technician: Sunny Triplett M.D. Ph.D.; CLIA# [id number] Performed By: #### C BC #### [address] [id number] URIC ACIDon 05-07-2020 Urate [Mass/Vol] 8.1 mg/dL High 2.3 - 6.7 [facility] Comment on above: Result Comment: Andia puncture immediately after or during the administration of Metamizole may lead to falsely low results. Testing should be performed immediately prior to Metamizole dosing. Performed By: #### C BC #### [address] [id number] BASIC METABOLIC PANELon 04-20 Anion gap [Moles/Vol] 14 mmol/L Normal 10 - 20 [facility] Comment on above: Performed By: #### C A #### [address] [id number] Calcium [Mass/Vol] 9.0 mg/dL Normal 8.6 - 10.3 [facility] Comment on above: Performed By: #### C A #### [address] [id number] Chloride [Moles/Vol] 97 mmol/L Low 98 - 107 [facility] Comment on above: Performed By: #### C A #### [address] [id number] Creatinine [Mass/Vol] 2.05 mg/dL High 0.50 - 1.05 [facility] Comment on above: Performed By: #### C A #### [address] [id number] GFR- AM. 28 mL/min/1.73m2 Abnormal >60 [facility] Comment on above: Result Comment: CALC ULATIONS OF ESTIMATED GFR ARE PERFORMED USING THE MDRD STUDY EQUATION FOR THE IDMS-TRACEABLE CREATININE METHODS. CLIN CHEM 2007;53:766-72 Performed By: #### C A #### [address] [id number] GFR-NON AM. 23 mL/min/1.73m2 Abnormal >60 [facility] Comment on above: Performed By: #### C A #### [address] [id number] Glucose [Mass/Vol] 124 mg/dL High 74 - 99 [facility] Comment on above: Performed By: #### C A #### [address] [id number] HCO3 (Bld) [Moles/Vol] 31 mmol/L Normal 21 - 32 [facility] Comment on above: Performed By: #### C A #### [address] [id number] Potassium [Moles/Vol] 3.9 mmol/L Normal 3.5 - 5.3 [facility] Comment on above: Performed By: #### C A #### [address] [id number] Sodium [Moles/Vol] 138 mmol/L Normal 136 - 145 [facility] Comment on above: Performed By: #### C A #### [address] [id number] Urea nitrogen [Mass/Vol] 57 mg/dL High 6 - 23 [facility] Comment on above: Performed By: #### C A #### [address] [id number] Anion gap [Moles/Vol] 12 mmol/L Normal 10 - 20 [facility] Comment on above: Order Comment: Walker d- RB to [place], 05/06/2020 06:54 Performed By: #### B MP ####[facility] [place] [address] [id number] Calcium [Mass/Vol] 9.0 mg/dL Normal 8.6 - 10.3 [facility] Comment on above: Order Comment: Walker d- RB to [place], 05/06/2020 06:54 Performed By: #### B MP ####[address] [id number] Chloride [Moles/Vol] 100 mmol/L Normal 98 - 107 [facility] Comment on above: Order Comment: Walker d- RB to [place], 05/06/2020 06:54 Performed By: #### B MP ####[address] [id number] Creatinine [Mass/Vol] 2.15 mg/dL High 0.50 - 1.05 [facility] Comment on above: Order Comment: Walker d- RB to [place], 05/06/2020 06:54 Performed By: #### B MP ####[address] [id number] GFR- AM. 27 mL/min/1.73m2 Abnormal >60 [facility] Comment on above: Order Comment: Walker d- RB to [place], 05/06/2020 06:54 Result Comment: CALC ULATIONS OF ESTIMATED GFR ARE PERFORMED USING THE MDRD STUDY EQUATION FOR THE IDMS-TRACEABLE CREATININE METHODS. CLIN CHEM 2007;53:766-72 Performed By: #### B MP ####[address] [id number] GFR-NON AM. 22 mL/min/1.73m2 Abnormal >60 [facility] Comment on above: Order Comment: Walker d- RB to [place], 05/06/2020 06:54 Performed By: #### B MP ####[facility] [place], [place] [id number] Glucose [Mass/Vol] 100 mg/dL High 74 - 99 [facility] Comment on above: Order Comment: Walker d- RB to [place], 05/06/2020 06:54 Performed By: #### B MP ####[address] [id number] HCO3 (Bld) [Moles/Vol] 32 mmol/L Normal 21 - 32 [facility] Comment on above: Order Comment: Walker d- RB to [place], 05/06/2020 06:54 Performed By: #### B MP ####[address] [id number] Potassium [Moles/Vol] 2.9 mmol/L Critically low 3.5 - 5.3 [facility] Comment on above: Order Comment: Walker d- RB to [place], 05/06/2020 06:54 Result Comment: Call ed- RB to [place], 05/06/2020 06:54 Performed By: #### B MP ####[address] [id number] Sodium [Moles/Vol] 141 mmol/L Normal 136 - 145 [facility] Comment on above: Order Comment: Walker d- RB to [place], 05/06/2020 06:54 Performed By: #### B MP ####[address] [id number] Urea nitrogen [Mass/Vol] 62 mg/dL High 6 - 23 [facility] Comment on above: Order Comment: Walker d- RB to [place], 05/06/2020 06:54 Performed By: #### B MP ####[address] [id number] Daily Progress Note-Endocrin litzy 05-06-2020 Daily Progress [...] potassium Objective Data: Objective Information: T PRBPSpO2 Value36.10745905/9099% Date/Time05/06 7: 7: 7: 7: 7:33 Range(36.2C - 36.7C ) (71 - 82 ) (18 - 18 ) (136 - 162 )/ (82 - 96 ) (88% - 99% ) Pain reported at 05/06 11:17: 0 = None ---- Intake and Output ----- Mn/Dy/Year TimeIntakeOutputNet May 05, 2020 10:00 [id number] May 05, 2020 2:00 [id number] The Intake and Output Totals for the last 24 hours are: IntakeOutputNet [id number] T PRBPSpO2 Value36.68302690/9099% Date/Time05/06 7: 7: 7: 7: 7:33 Range(36.2C [...] laboratory results: Basic Metabolic Panel Trending View [id number] 05:38:00 05-May-2020 05:34:00 Lab Comment:Called- RB to [place], 05/06/2020 06:54 Called- RB to Catherine Marroquin, 05/05/2020 06:47 Glucose, Jespj861 H 98 NA141 139 K2.9 LL 2.9 LL CL100 100 Bicarbonate, Serum32 31 Anion Gap, Serum12 11 BUN62 H 72 H CREAT2.15 H 2.28 H GFR-Non Unqzogyh49 A 21 A GFR- Decqwyex57 A 25 A Calcium, Serum9.0 9.1 Magnesium, [...] Updated: 06-May-2020 12:32 by Alexander Gregory) Normal [facility] Daily Progress Note-General Internal Medicineon 05-06-2020 [...] negative. Objective Data: Objective Information: T PRBPSpO2 Value36.52206302/8498% Date/Time05/06 13: 13: 13: 13: 13:40 Range(36.2C - 36.7C ) (71 - 82 ) (18 - 18 ) (132 - 162 )/ (82 - 96 ) (88% - 99% ) Pain reported at 05/06 11:17: 0 = None ---- Intake and Output ----- Mn/Dy/Year TimeIntakeOutputNet May 05, 2020 10:00 [id number] May 05, 2020 2:00 [id number] The Intake and Output Totals for the last 24 hours are: IntakeOutputNet [id number] Physical Exam by System: Constitutional: Well developed, [...] Last Updated: 06-May-2020 13:56 by Baldo South) [facility] Daily Progress Note-Infectio us Diseaseon 05-06-2020 Daily Progress Note-Infectious Disease Service: Infectious Disease History of Present Illness: History Present Illness: HPI: Possible aspiration pneumonia Recent UTI with Citrobacter No fevers chills sweats minimal cold Subjective Data: LINDA PERALTA is a 75 year old Female who is Hospital Day # 5. Objective Data: Objective Information: T PRBPSpO2 Value36.34051358/9099% Date/Time05/06 7: 7: 7: 7: 7:33 Range(36.2C - 36.7C ) (71 - 82 ) (18 - 18 ) (136 - 162 )/ (82 - 96 ) (88% - 99% ) Pain reported at 05/06 11:17: 0 = None ---- Intake and Output ----- Mn/Dy/Year TimeIntakeOutputNet May 05, 2020 10:00 [id number] May 05, 2020 2:00 [id number] The Intake and Output Totals for the last 24 hours are: IntakeOutputNet [id number] T PRBPSpO2 Value36.43935980/9099% Date/Time05/06 7: 7: 7: 7: 7:33 Range(36.2C [...] RA Area A4C: 16.4 cm2 RA Major Van A4C: 5.0 cm M-MODE MEASUREMENTS: Normal Ranges: [...] 1.2 m/s (0.6-0.9m/s) PV Max P.2 mmHg [id number] Tremayne Mcleod MD Electronically signed on 05/02/2020 [...] Last Updated: 06-May-2020 12:25 by Alberto Allred) [facility] Daily Progress Note-Nephrolo deangeloon 05-06-2020 Daily Progress Note-Nephrology Service: Nephrology Subjective Data: LINDA PERLATA is a 75 year old Female who is Hospital Day # 5. renal function slowly improving, K low this AM, getting corrected, feels better. Objective Data: Objective Information: T PRBPSpO2 Value36.46332787/9099% Date/Time05/06 7: 7: 7: 7: 7:33 Range(36.2C - 36.7C ) (71 - 82 ) (18 - 18 ) (136 - 162 )/ (82 - 96 ) (88% - 99% ) Pain reported at 05/06 0:50: 0 = None ---- Intake and Output ----- Mn/Dy/Year TimeIntakeOutputNet May 05, 2020 10:00 [id number] May 05, 2020 2:00 [id number] The Intake and Output Totals for the last 24 hours are: IntakeOutputNet [id number] Constitutional: Alert, in no acute distress HEENT: [...] partial nephrectomy, DVT/PE who was initially at [place] for AMS, hypercalcemia and hypotension now transferred here. 1. ANGELA on CKD: previously hypotensive at [place], now hypertensive, also CRS as pt is [...] Updated: 06-May-2020 11:02 by Leigh Billy) Normal [facility] Daily Progress Note-Urologyo n 05-06-2020 Daily [...] below. Objective Data: Objective Information: T PRBPSpO2 Value36.87806509/8498% Date/Time05/06 13: 13: 13: 13: 13:40 Range(36.5C - 36.7C ) (71 - 82 ) (18 - 18 ) (132 - 162 )/ (83 - 96 ) (88% - 99% ) Pain reported at 05/06 11:17: 0 = None ---- Intake and Output ----- [facility] May 06, 2020 2:00 [id number] May 05, 2020 10:00 [id number] The Intake and Output Totals for the last 24 hours are: IntakeOutputNet [id number] T PRBPSpO2 Value36.50006027/8498% Date/Time05/06 13: 13: 13: 13: 13:40 Range(36.5C - 36.7C ) (71 - 82 ) (18 - 18 ) (132 - 162 )/ (83 - 96 ) (88% - 99% ) Pain reported at 05/06 11:17: 0 = None ---- Intake and Output ----- [facility] May 06, 2020 2:00 [id number] May 05, 2020 10:00 [id number] The Intake and Output Totals for the last 24 hours are: IntakeOutputNet [id number] ---Intake--- Enteral - Oral PO Fluid/Feed (oral): [...] laboratory results: Basic Metabolic Panel Trending View [id number] 05:38:00 05-May-2020 05:34:00 Lab Comment:Called- RB to Rogelio, 05/06/2020 06:54 Called- RB to Ctaherine Marroquin, 05/05/2020 06:47 Glucose, Ayvsa555 H 98 NA141 139 K2.9 LL 2.9 LL CL100 100 Bicarbonate, Serum32 31 Anion Gap, Serum12 11 BUN62 H 72 H CREAT2.15 H 2.28 H GFR-Non Olnztrij46 A 21 A GFR- Hppwvkau67 A 25 A Calcium, Serum9.0 9.1 Magnesium, [...] Code StatusDNAR with Added Limitations Electronic Signatures: D'alyx, Alvin (MD) (Signed 06-May-2020 16:21) Authored: Service, Subjective Data, Objective Data, Assessment and Plan, Note Completion Last Updated: 06-May-2020 16:21 by Alvin Sawyer) Normal [facility] Discharge [id number] Discharge Profile2 Discharge Orders: Anticipated Discharge Date: Anticipated Discharge [id number] DNAR: DNAR Status: DNAR Was Extending the DNAR Status Following Discharge Discussed w/ Patient/Family: yes What was the Result of the Discussion: patient wishes to have DNAR extended [place] DNR State Form Complete: yes [place] DNR State Form Status: DNR Comfort Care [...] Physician/Dept/Jocelin Gregory MD / Endocrinology [facility] Scheduled Date/[id number] 15:00 [address] [place] [address] CommentsPlease wear a mask when entering the building. Please bring discharge papers, a list of all medications, insurance card photo id. Please call the office if unable to keep this appointment. Electronic Signatures: Bernardino Valentino (PT ACC REP) (Signed 06-May-2020 13:18) Authored: Discharge Orders, Appointments, Gold Form - Carriage Dogger Summary Baldo South) (Signed 08-May-2020 15:33) Authored: Discharge Orders, Hospital Course (Home Care/Gold Form), Gold Form Orders, Provider FINAL REVIEW of Orders Last Updated: 08-May-2020 15:33 by Baldo South) Normal [facility] EMR ADDONon 05-06-2020 ADDON CONFIRMATION REQUEST REC'D Normal [facility] Comment on above: Performed By: #### C MP #### [facility] [address] [place], [place] [id number] MAGNESIUMon 05-06-2020 Magnesium [Mass/Vol] 1.80 mg/dL Normal 1.60 - 2.40 [facility] Comment on above: Performed By: #### C A #### [address] [id number] VITAMIN D 1,25-DIHYDROXYon 0 05-06-2020 VITAMIN D 1,25-DIHYDROXY 34.3 pg/mL Normal 19.9-79.3 [facility] Comment on above: Result Comment: INTE RPRETIVE INFORMATION: Vitamin D, 1,25-Dihydroxy This test is primarily indicated during patient evaluation for hypercalcemia and renal failure. A normal result does not rule out Vitamin D deficiency. The recommended test for diagnosing Vitamin D deficiency is Vitamin D 25-hydroxy. Performed By: [facility] [address] [place] [address] Portfolio Strategist: Eliza Fuller MD Performed By: #### V TDDI #### [employer] [facility] [address] [place] [address] BASIC METABOLIC PANELon 04-20 Anion gap [Moles/Vol] 11 mmol/L Normal 10 - 20 [facility] Comment on above: Order Comment: TEST CALCIUM WAS CANCELLED, 05/02/2020 12:20 added per RN 05/02/2020 12:20. Performed By: #### C A #### [address] [id number] Calcium [Mass/Vol] 9.1 mg/dL Normal 8.6 - 10.3 [facility] Comment on above: Order Comment: TEST CALCIUM WAS CANCELLED, 05/02/2020 12:20 added per RN 05/02/2020 12:20. Performed By: #### C A #### [address] [id number] Chloride [Moles/Vol] 100 mmol/L Normal 98 - 107 [facility] Comment on above: Order Comment: TEST CALCIUM WAS CANCELLED, 05/02/2020 12:20 added per RN 05/02/2020 12:20. Performed By: #### C A #### [address] [id number] Creatinine [Mass/Vol] 2.28 mg/dL High 0.50 - 1.05 [facility] Comment on above: Order Comment: TEST CALCIUM WAS CANCELLED, 05/02/2020 12:20 added per RN 05/02/2020 12:20. Performed By: #### C A #### [address] [id number] GFR- AM. 25 mL/min/1.73m2 Abnormal >60 [facility] Comment on above: Order Comment: TEST CALCIUM WAS CANCELLED, 05/02/2020 12:20 added per RN 05/02/2020 12:20. Result Comment: CALC ULATIONS OF ESTIMATED GFR ARE PERFORMED USING THE MDRD STUDY EQUATION FOR THE IDMS-TRACEABLE CREATININE METHODS. CLIN CHEM 2007;53:766-72 Performed By: #### C A #### [address] [id number] GFR-NON AM. 21 mL/min/1.73m2 Abnormal >60 [facility] Comment on above: Order Comment: TEST CALCIUM WAS CANCELLED, 05/02/2020 12:20 added per RN 05/02/2020 12:20. Performed By: #### C A #### [address] [id number] Glucose [Mass/Vol] 98 mg/dL Normal 74 - 99 [facility] Comment on above: Order Comment: TEST CALCIUM WAS CANCELLED, 05/02/2020 12:20 added per RN 05/02/2020 12:20. Performed By: #### C A #### [address] [id number] HCO3 (Bld) [Moles/Vol] 31 mmol/L Normal 21 - 32 [facility] Comment on above: Order Comment: TEST CALCIUM WAS CANCELLED, 05/02/2020 12:20 added per RN 05/02/2020 12:20. Performed By: #### C A #### [address] [id number] Potassium [Moles/Vol] 2.9 mmol/L Critically low 3.5 - 5.3 [facility] Comment on above: Order Comment: TEST CALCIUM WAS CANCELLED, 05/02/2020 12:20 added per RN 05/02/2020 12:20. Result Comment: Call ed- RB to Catherine Marroquin, 05/05/2020 06:47 Performed By: #### C A #### [address] [id number] Sodium [Moles/Vol] 139 mmol/L Normal 136 - 145 [facility] Comment on above: Order Comment: TEST CALCIUM WAS CANCELLED, 05/02/2020 12:20 added per RN 05/02/2020 12:20. Performed By: #### C A #### [address] [id number] Urea nitrogen [Mass/Vol] 72 mg/dL High 6 - 23 [facility] Comment on above: Order Comment: TEST CALCIUM WAS CANCELLED, 05/02/2020 12:20 added per RN 05/02/2020 12:20. Performed By: #### C A #### [address] [id number] CBCon 05-05-2020 Erythrocyte distribution width (RBC) [Ratio] 15.6 % High 11.5 - 14.5 [facility] Comment on above: Performed By: #### C BC ####[facility] [place], [place] [id number] Hematocrit (Bld) [Volume fraction] 30.6 % Low 36.0 - 46.0 [facility] Comment on above: Performed By: #### C BC ####[facility] [place] [phone] Hemoglobin (Bld) [Mass/Vol] 10.2 g/dL Low 12.0 - 16.0 [facility] Comment on above: Performed By: #### C BC ####[facility] [place] [phone] MCHC (RBC) [Mass/Vol] 33.3 g/dL Normal 32.0 - 36.0 [facility] Comment on above: Performed By: #### C BC ####[address] [place], [place] [id number] MCV (RBC) [Entitic vol] 89 fL Normal 80 - 100 [facility] Comment on above: Performed By: #### C BC ####[facility] [place], [place] [id number] Platelets (Bld) [#/Vol] 323 10*3/uL Normal 150 - 450 [facility] Comment on above: Performed By: #### C BC ####[address] [place], [place] [phone] RBC (Bld) [#/Vol] 3.43 x10E12/L Low 4.00 - 5.20 [facility] Comment on above: Performed By: #### C BC ####[address] [place], [place] [phone] WBC (Bld) [#/Vol] 19.9 10*3/uL High 4.4 - 11.3 [facility] Comment on above: Performed By: #### C BC ####[address] [place], [place] [id number] Consult-Orthopaedicson 05-05 Consult-Orthopaedics Service: Service: Orthopaedics History [...] will be reviewed by Dr. Glynn our rotating equipment specialist. The patient is anticoagulated with Coumadin. [...] Last Updated: 05-May-2020 18:14 by Javier Hathaway) [facility] Daily Progress Note-Endocrin christianeyon 05-05-2020 Daily Progress Note-Endocrinology Service: Endocrinology Subjective Data: LINDA PERALTA is a 75 year old Female who is Hospital Day # 4. Additional Information: Doing well she feels she has improved c/o lot of weakness all over Objective Data: Objective Information: T PRBPSpO2 Value36.057251/8395% Date/Time05/05 19: 19: 19: 19:19 Range(36.2C - 36.5C ) (73 - 83 ) (136 - 148 )/ (82 - 88 ) (94% - 98% ) Pain reported at 05/05 9:49: 0 = None ---- Intake and Output ----- Mn/Dy/Year TimeIntakeOutputNet May 05, 2020 2:00 [id number] May 05, 2020 6:00 [id number] May 04, 2020 10:00 [id number] The Intake and Output Totals for the last 24 hours are: IntakeOutputNet [id number] Physical Exam by System: Constitutional: Well developed, [...] Serum 31.6 Basic Metabolic Panel Trending View [id number] 05:34:00 04-May-2020 05:26:00 Lab Comment:Called- RB to Catherine Cara, 05/05/2020 06:47 Glucose, Serum98 90 NA139 137 K2.9 LL 3.6 CL100 101 Bicarbonate, Serum31 27 Anion Gap, Serum11 13 BUN72 H 79 H CREAT2.28 H 2.39 H GFR-Non Zdqxvwgv62 A 20 A GFR- Lcyzpqck26 A 24 A Calcium, Serum9.1 9.8 Uric [...] Updated: 05-May-2020 21:57 by Alexander Gregory) Normal [facility] Daily Progress Note-General Internal Medicineon 05-05-2020 [...] negative. Objective Data: Objective Information: T PRBPSpO2 Value36.53580854/8398% Date/Time05/05 7: 7: 14:393/16 7:223 7:22 Range(36.2C - 36.3C ) (75 - 83 ) (18 - 18 ) (135 - 148 )/ (83 - 88 ) (93% - 98% ) Pain reported at 05/05 9:49: 0 = None ---- Intake and Output ----- [facility]Dy/[facility] May 05, 2020 2:00 [id number] May 05, 2020 6:00 [id number] May 04, 2020 10:00 [id number] The Intake and Output Totals for the last 24 hours are: IntakeOutputNet [id number] Physical Exam by System: Constitutional: Well developed, [...] Last Updated: 05-May-2020 14:08 by Baldo South) [facility] Daily Progress Note-Infectio us Diseaseon 05-05-2020 Daily Progress Note-Infectious Disease Service: Infectious Disease History of Present Illness: History Present Illness: HPI: Possible aspiration pneumonia Recent UTI with Citrobacter No fevers chills sweats minimal cold Subjective Data: LINDA PERALTA is a 75 year old Female who is Hospital Day # 4. Objective Data: Objective Information: T PRBPSpO2 Value36.93378174/8398% Date/Time05/05 7: 7: 14: 7: 7:22 Range(36.2C - 36.3C ) (75 - 83 ) (18 - 18 ) (135 - 148 )/ (83 - 88 ) (93% - 98% ) Pain reported at 05/05 9:49: 0 = None ---- Intake and Output ----- Mn/Dy/Year TimeIntakeOutputNet May 05, 2020 6:00 [id number] May 04, 2020 10:00 [id number] May 04, 2020 2:00 [id number] The Intake and Output Totals for the last 24 hours are: [facility] [id number] T PRBPSpO2 Value36.79137781/8398% Date/Time05/05 7: 7: 14: 7: 7:22 Range(36.2C [...] laboratory results: Complete Blood Count Trending View [id number]-[id number] 05:35:00 04-May-2020 05:26:00 White Blood Cell Count19.9 H 22.3 H Red Blood Cell Count3.43 L 3.82 L HGB10.2 L 11.2 L HCT30.6 L 34.4 L MCV89 90 MCHC33.3 32.6 NTA551 382 RDW-CV15.6 H 15.9 H Parathormone Intact, Serum 05-May-2020 05:35:00 ResultValue Parathormone Intact, Serum 31.6 Basic Metabolic Panel Trending View [id number] 05:34:00 04-May-2020 05:26:00 Lab Comment:Called- RB to Catherine Marroquin, 05/05/2020 06:47 Glucose, Serum98 90 NA139 137 K2.9 LL 3.6 CL100 101 Bicarbonate, Serum31 27 Anion Gap, Serum11 13 BUN72 H 79 H CREAT2.28 H 2.39 H GFR-Non Ssoufikb04 A 20 A GFR- Uqlgjtts08 A 24 A Calcium, Serum9.1 9.8 PT + INR, Plasma Trending View [id number]-Vls-7100 05:34:00 04-May-2020 05:26:00 Prothrombin Time, Wkicpv71.6 H 27.5 H International Normalized Ratio, Plasma2.0 [...] RA Area A4C: 16.4 cm2 RA Major Van A4C: 5.0 cm M-MODE MEASUREMENTS: Normal Ranges: [...] 1.2 m/s (0.6-0.9m/s) PV Max P.2 mmHg [id number] Tremayne Mcleod MD Electronically signed on 05/02/2020 [...] Updated: 05-May-2020 12:21 by Alberto Allred) Normal [facility] Daily Progress Note-Nephrolo gyon 05-05-2020 Daily Progress Note-Nephrology Service: Nephrology Subjective Data: LINDA PERALTA is a 75 year old Female who is Hospital Day # 4. renal function stable, Ca wnl, uric acid better, off fluids. Objective Data: Objective Information: T PRBPSpO2 Value36.45610230/8398% Date/Time05/05 7: 7: 14: 7: 7:22 Range(36.2C - 36.3C ) (75 - 83 ) (18 - 18 ) (135 - 148 )/ (83 - 88 ) (93% - 98% ) Pain reported at 05/05 9:49: 0 = None ---- Intake and Output ----- Mn/Dy/Year TimeIntakeOutputFormerly [facility] May 05, 2020 6:00 [id number] May 04, 2020 10:00 [id number] May 04, 2020 2:00 [id number] The Intake and Output Totals for the last 24 hours are: IntakeOutputNet [id number] Constitutional: Alert, in no acute distress HEENT: [...] partial nephrectomy, DVT/PE who was initially at [place] for AMS, hypercalcemia and hypotension now transferred here. 1. ANGELA on CKD: previously hypotensive at [place], now hypertensive, also CRS as pt is [...] Last Updated: 05-May-2020 14:00 by Leigh Billy) [facility] Daily Progress Note-Neurolog yon 05-05-2020 Daily Progress [...] better. Objective Data: Objective Information: T PRBPSpO2 Value36.107008/8295% Date/Time05/05 14: 14: 14: 14:30 Range(36.2C - 36.3C ) (73 - 83 ) (135 - 148 )/ (82 - 88 ) (94% - 98% ) Pain reported at 05/05 9:49: 0 = None ---- Intake and Output ----- Mn/Dy/[facility]Out[facility] May 05, 2020 2:00 [id number] May 05, 2020 6:00 [id number] May 04, 2020 10:00 [id number] The Intake and Output Totals for the last 24 hours are: IntakeOutputNet [id number] Physical Exam by System: Neurological: The patient [...] Updated: 05-May-2020 19:20 by Vicky Boyd) Normal [facility] Daily Progress Note-Urologyo n 05-05-2020 Daily [...] below. Objective Data: Objective Information: T PRBPSpO2 Value36.90364087/8398% Date/Time05/05 7: 7: 14: 7: 7:22 Range(36.2C - 36.3C ) (75 - 83 ) (18 - 18 ) (135 - 148 )/ (83 - 88 ) (93% - 98% ) Pain reported at 05/05 9:49: 0 = None ---- Intake and Output ----- Mn/Dy/[facility]Int[facility]Out[facility] May 05, 2020 6:00 [id number] May 04, 2020 10:00 [id number] May 04, 2020 2:00 [id number] The Intake and Output Totals for the last 24 hours are: IntakeOutputNet [id number] T PRBPSpO2 Value36.83510117/8398% Date/Time05/05 7: 7: 14: 7: 7:22 Range(36.2C - 36.3C ) (75 - 83 ) (18 - 18 ) (135 - 148 )/ (83 - 88 ) (93% - 98% ) Pain reported at 05/05 9:49: 0 = None ---- Intake and Output ----- Mn/Dy/Year TimeIntakeOutputNet May 05, 2020 6:00 [id number] May 04, 2020 10:00 [id number] May 04, 2020 2:00 [id number] The Intake and Output Totals for the last 24 hours are: IntakeOutputNet [id number] ---Intake--- Enteral - Oral PO Fluid/Feed (oral): [...] laboratory results: Complete Blood Count Trending View [id number] 05:35:00 04-May-2020 05:26:00 White Blood Cell Count19.9 H 22.3 H Red Blood Cell Count3.43 L 3.82 L HGB10.2 L 11.2 L HCT30.6 L 34.4 L MCV89 90 MCHC33.3 32.6 ILE030 382 RDW-CV15.6 H 15.9 H Parathormone Intact, Serum 05-May-2020 05:35:00 ResultValue Parathormone Intact, Serum 31.6 Basic Metabolic Panel Trending View [id number]-[id number] 05:34:00 04-May-2020 05:26:00 Lab Comment:Called- RB to Catherine Marroquin, 05/05/2020 06:47 Glucose, Serum98 90 NA139 137 K2.9 LL 3.6 CL100 101 Bicarbonate, Serum31 27 Anion Gap, Serum11 13 BUN72 H 79 H CREAT2.28 H 2.39 H GFR-Non Dwiodcbi72 A 20 A GFR- Fkvlkgey54 A 24 A Calcium, Serum9.1 9.8 PT [...] RA Area A4C: 16.4 cm2 RA Major Van A4C: 5.0 cm M-MODE MEASUREMENTS: Normal Ranges: [...] 1.2 m/s (0.6-0.9m/s) PV Max P.2 mmHg [id number] Tremayne Mcleod MD Electronically signed on 05/02/2020 [...] Updated: 05-May-2020 13:22 by Alvin Sawyer) Normal [facility] CHELA PATH REVIEWon 05-05-2020 PATH REVIEW-CHELA NNEKA Normal [facility] Comment on above: Result Comment: By h er/his signature above, the Pathologist listed as making the final interpretation certifies that she/he has personally reviewed this case. Performed By: #### P R12 #### [facility] [address] [place] [address] PARATHYROID HORMONE,INTACTon 05-05-2020 PARATHYROID HORMONE,INTACT 31.6 pg/mL Normal 12.0 - 88.0 [facility] Comment on above: Performed By: #### P TH ####[address] [place], [place] [id number] PHOSPHORUSon 05-05-2020 Phosphate [Mass/Vol] 4.8 mg/dL Normal 2.5 - 4.9 [facility] Comment on above: Result Comment: The performance characteristics of phosphorus testing in heparinized plasma have been validated by the individual laboratory site where testing is performed. Testing on heparinized plasma is not approved by the FDA; however, such approval is not necessary. Performed By: #### P HOS ####[address] [place], [place] [id number] PROTEIN ELECTROPHORESIS + IM MUNOFIXATION, SERUMon 05-05-2020 IMMUNOFIXATION INTERP NORMAL Normal [facility] Comment on above: Result Comment: No m onoclonal proteins detected by immunofixation. Performed By: #### I FE2 ####[id number] [place] [address] INTERPRETATION SEE COMMENT Normal [facility] Comment on above: Result Comment: REFL EXED TO IMMUNOFIXATION ELECTROPHORESIS Hypoalbuminemia. Performed By: #### I FE2 ####[address] [id number] [place] [address] MONOCLONAL PROTEIN NONE DETECTED Normal [facility] Comment on above: Performed By: #### I FE2 ####[address] [id number] [place] [address] PT/INRon 05-05-2020 INR Coag (PPP) [Relative time] 2.0 {INR} High 0.9 - 1.1 [facility] Comment on above: Performed By: #### P TINR ####[address] [id number] PT Coag (PPP) [Time] 23.6 s High 10.1 - 13.3 [facility] Comment on above: Performed By: #### P TINR ####[address] [id number] SPE PATH REVIEWon 05-05-2020 PATH REVIEW-ARMIDA EARLY Normal [facility] Comment on above: Result Comment: By h er/his signature above, the Pathologist listed as making the final interpretation certifies that she/he has personally reviewed this case. Performed By: #### P R12 #### [facility] [address] [place] [address] Swallow Evaluation v2-Bedsid e Clinical Swallow, Daquan 05-05-2020 Swallow Evaluation v2-Bedside Clinical Swallow, DISPLAY AND BANNER DESIGNER Rehab: Info: Time IN12:00 Time OUT12:15 Total Treatment [id number] Evaluation TypeBedside Clinical Swallow, DISPLAY AND BANNER DESIGNER Patient Effortgood Patient Profile Reviewedyes Reason for [...] Met (Swallow Eval)yes; treatment indicated Therapy Frequency (DISPLAY AND BANNER DESIGNER)3-5x/wk Expected Duration Therapy Wlfjrtz91 minutes DISPLAY AND [employer]NER DESIGNER Diet Recommendations (Swallow Eval)REGULAR WITH THIN LIQUIDS Recommended Feeding/Eating Techniques (Swallow Eval)alternate between small bites and sips of food/liquid& double/multiple swallows& feed upright in 90 degree position& small sips/bites& slow rate Monitor for Signs of Aspiration (Swallow Eval)cough; gurgly voice; throat clearing; fever; upper respiratory infection; pneumonia Short Term Goals: Dysphagia/Swallow: Established [id number] Dysphagia/Swallow: Goal Details1. Patient will tolerate highest [...] evaluation. This documentation was completed using the [employer] Dictation system. There may be spelling and/or grammatical errors that were not corrected prior to final submission. Electronic Signatures: Jayme Keys (DISPLAY AND BANNER DESIGNER) (Signed 05-May-2020 13:38) Authored: Info, Impression, Short Term Goals, Education Last Updated: 05-May-2020 13:38 by Jayme Keys (DISPLAY AND BANNER DESIGNER) Normal [facility] URIC ACIDon 05-05-2020 Urate [Mass/Vol] 9.7 mg/dL High 2.3 - 6.7 [facility] Comment on above: Result Comment: Nadia puncture immediately after or during the administration of Metamizole may lead to falsely low results. Testing should be performed immediately prior to Metamizole dosing. Performed By: #### C MP #### [address] [id number] BASIC METABOLIC PANELon 04-20 Anion gap [Moles/Vol] 13 mmol/L Normal 10 - 20 [facility] Comment on above: Performed By: #### C MP #### [address] [id number] Calcium [Mass/Vol] 9.8 mg/dL Normal 8.6 - 10.3 [facility] Comment on above: Performed By: #### C MP #### [address] [id number] Chloride [Moles/Vol] 101 mmol/L Normal 98 - 107 [facility] Comment on above: Performed By: #### C MP #### [address] [id number] Creatinine [Mass/Vol] 2.39 mg/dL High 0.50 - 1.05 [facility] Comment on above: Performed By: #### C MP #### [address] [id number] GFR- AM. 24 mL/min/1.73m2 Abnormal >60 [facility] Comment on above: Result Comment: CALC ULATIONS OF ESTIMATED GFR ARE PERFORMED USING THE MDRD STUDY EQUATION FOR THE IDMS-TRACEABLE CREATININE METHODS. CLIN CHEM 2007;53:766-72 Performed By: #### C MP #### [address] [id number] GFR-NON AM. 20 mL/min/1.73m2 Abnormal >60 [facility] Comment on above: Performed By: #### C MP #### [address] [id number] Glucose [Mass/Vol] 90 mg/dL Normal 74 - 99 [facility] Comment on above: Performed By: #### C MP #### [address] [id number] HCO3 (Bld) [Moles/Vol] 27 mmol/L Normal 21 - 32 [facility] Comment on above: Performed By: #### C MP #### [address] [id number] Potassium [Moles/Vol] 3.6 mmol/L Normal 3.5 - 5.3 [facility] Comment on above: Performed By: #### C MP #### [address] [id number] Sodium [Moles/Vol] 137 mmol/L Normal 136 - 145 [facility] Comment on above: Performed By: #### C MP #### [address] [id number] Urea nitrogen [Mass/Vol] 79 mg/dL High 6 - 23 [facility] Comment on above: Performed By: #### C MP #### [address] [id number] CBCon 05-04-2020 Erythrocyte distribution width (RBC) [Ratio] 15.9 % High 11.5 - 14.5 [facility] Comment on above: Performed By: #### P R12 #### [facility] [address] [place] [address] Hematocrit (Bld) [Volume fraction] 34.4 % Low 36.0 - 46.0 [facility] Comment on above: Performed By: #### P R12 #### [facility] [address] [place] [address] Hemoglobin (Bld) [Mass/Vol] 11.2 g/dL Low 12.0 - 16.0 [facility] Comment on above: Performed By: #### P R12 #### [facility] [address] [place] [address] MCHC (RBC) [Mass/Vol] 32.6 g/dL Normal 32.0 - 36.0 [facility] Comment on above: Performed By: #### P R12 #### [facility] [address] [place] [address] MCV (RBC) [Entitic vol] 90 fL Normal 80 - 100 [facility] Comment on above: Performed By: #### P R12 #### [facility] [address] [place] [address] Platelets (Bld) [#/Vol] 382 10*3/uL Normal 150 - 450 [facility] Comment on above: Performed By: #### P R12 #### [facility] [address] [place] [address] RBC (Bld) [#/Vol] 3.82 x10E12/L Low 4.00 - 5.20 [facility] Comment on above: Performed By: #### P R12 #### [facility] [address] [place] [address] WBC (Bld) [#/Vol] 22.3 10*3/uL High 4.4 - 11.3 [facility] Comment on above: Performed By: #### P R12 #### [facility] [address] [place] [address] CREATINE KINASEon 05-04-2020 CK [Catalytic activity/Vol] 51 U/L Normal 0 - 215 [facility] Comment on above: Performed By: #### C BC #### [facility] [address] [place], [place] [id number] Consult-Endocrinologyon 04-20 Consult-Endocrinology Service: Service: Endocrinology Consult: [...] penicillins: Rash Objective: Objective Information: T PRBPSpO2 Value36.81818486/9097% Date/Time05/04 8: 8: 8: 8: 8:26 Range(36.2C [...] laboratory results: Complete Blood Count Trending View [id number] 05:26:00 03-May-2020 05:31:00 White Blood Cell Count22.3 H 22.9 H Red Blood Cell Count3.82 L 3.81 L HGB11.2 L 11.1 L HCT34.4 L 33.8 L MCV90 89 MCHC32.6 32.8 VOK653 405 RDW-CV15.9 H 16.0 H Basic Metabolic Panel 04-May-2020 05:26:00 ResultValue Glucose, Serum 90 NA 137 K 3.6 CL 101 Bicarbonate, Serum 27 Anion Gap, Serum 13 BUN 79 H CREAT 2.39 H GFR-Non 20 A GFR- 24 A Calcium, Serum 9.8 Urinalysis with Culture if Indicated 03-May-2020 11:12:00 ResultValue Color, Urine STRAW Reference Range: STRAW,YELLOW Appearance, Urine CLEAR Specific [place], Urine 1.008 pH, Urine 6.0 Protein, Urine [...] Lactate, Level 1.8 Culture, Blood Trending View Lokdzf57-Esj-4606 10:49:00 03-May-2020 10:48:00 Culture, BloodNEGATIVE TO DATE, CULTURE IN PROGRESS. NEGATIVE TO DATE, CULTURE IN PROGRESS. Comprehensive Metabolic Panel Trending View [id number]-Jpp-3130 05:31:00 02-May-2020 02:22:00 Glucose, Serum93 184 H NA138 138 K3.3 L 4.2 CL101 101 Bicarbonate, Serum26 26 Anion Gap, Serum14 15 BUN86 H 84 H CREAT2.39 H 2.31 H GFR-Non Euiefqks60 A 20 A GFR- Yhbfpwbt90 A 24 A Calcium, Serum10.8 H 12.3 [...] 2020 4:41PM] Consult Status: Consult Order ID: [id number] Problem/Assessment/Plan: Impression 1: Hypercalcemia and CKD ANGELA [...] Updated: 26-May-2020 16:04 by Alexander Gregory) Normal [facility] Consult-Urologyon 05-04-2020 Consult-Urology Service: Service: Urology [...] penicillins: Rash Objective: Objective Information: T PRBPSpO2 Value36.88661210/8593% Date/Time05/04 14: 14: 14: 14: 14:39 Range(36.2C - 36.7C ) (71 - 93 ) (16 - 18 ) (139 - 156 )/ (85 - 92 ) (92% - 97% ) Pain reported at 05/04 8:26: 0 = None ---- Intake and Output ----- Mn/Dy/[facility]Out[facility] May 04, 2020 2:00 [id number] May 04, 2020 6:00 [id number] May 03, 2020 10:00 [id number] The Intake and Output Totals for the last 24 hours are: [facility] [id number] ---Intake--- IV Fluids Infusion: 1200 mL Infusion: [...] results: PT + INR, Plasma Trending View [id number]-Slm-1231 05:26:00 03-May-2020 10:50:00 Prothrombin Time, Lzkytv75.5 H 33.4 H International Normalized Ratio, Plasma2.3 [...] Reference Range: STRAW,YELLOW Appearance, Urine CLEAR Specific [place], Urine 1.008 pH, Urine 6.0 Protein, Urine [...] RA Area A4C: 16.4 cm2 RA Major Van A4C: 5.0 cm M-MODE MEASUREMENTS: Normal Ranges: [...] 1.2 m/s (0.6-0.9m/s) PV Max P.2 mmHg [id number] Tremayne Mcleod MD Electronically signed on 05/02/2020 at 1:08:29 PM Final Echocardiogram [May 02 2020 1:08PM] Impression: No evidence of hydronephrosis. Nonobstructing calculus at the upper pole. Complex cyst with calcification given hypodensity at the level of the renal hilum for which nonemergent CT would be recommended for further evaluation. Ultrasound Renal Bilateral [May 02 2020 12:57PM] Consult Status: Consult Order ID: [id number] Problem List: Admitting Dx: Hypercalcemia: Additional Dx: Change in mental status: Onset Date: 04-May-2020 Electronic Signatures: Alvin Sawyer) (Signed 04-May-2020 17:33) Authored: Service, History of Present Illness, Allergies, Objective, Assessment/Recommendatio ns, Note Completion Last Updated: 04-May-2020 17:33 by Alvin Sawyer) Normal [facility] Daily Progress Note-Infectio us Diseaseon 05-04-2020 [...] 3. Objective Data: Objective Information: T PRBPSpO2 Value36.28008195/8593% Date/Time05/04 14: 14: 14: 14: 14:39 Range(36.2C - 36.3C ) (71 - 93 ) (18 - 18 ) (139 - 156 )/ (85 - 90 ) (92% - 97% ) Pain reported at 05/04 8:26: 0 = None ---- Intake and Output ----- Mn/Dy/Year TimeIntakeOutputNet May 04, 2020 2:00 [id number] May 04, 2020 6:00 [id number] May 03, 2020 10:00 [id number] The Intake and Output Totals for the last 24 hours are: IntakeOutputNet [id number] Recent Lab Results: Results: CBC: 05/04/2020 05:26 [...] StatusDNAR with Added Limitations Electronic Signatures: Di Estrada) (Signed 04-May-2020 19:38) Authored: Service, History of Present Illness, Subjective Data, Objective Data, Assessment and Plan, Note Completion Last Updated: 04-May-2020 19:38 by Di Estrada) Normal [facility] Daily Progress Note-Medicine on 05-04-2020 Daily Progress Note-Medicine Service: Medicine Subjective Data: LINDA PERALTA is a 75 year old Female who is Hospital Day # 3. Patient was laying in bed overall feeling little bit better but still has bilateral leg weakness developed urinary retention has a Jarrell catheter denies any chest pain no abdominal pain. Objective Data: Objective Information: T PRBPSpO2 Value36.95095522/9097% Date/Time05/04 8: 8: 8: 8: 8:26 Range(36.2C - 36.9C ) (71 - 93 ) (16 - 18 ) (139 - 162 )/ (89 - 95 ) (92% - 97% ) Highest temp of 36.9 C was recorded at 05/03 14:24 Pain reported at 05/04 8:26: 0 = None ---- Intake and Output ----- Mn/Dy/Year TimeIntakeOutW[facility] May 04, 2020 6:00 [id number] May 03, 2020 10:00 [id number] May 03, 2020 2:00 [id number] The Intake and Output Totals for the last 24 hours are: IntakeOutputNet [id number] Physical Exam by System: Constitutional: Well developed, [...] Last Updated: 04-May-2020 12:20 by Nani Stanley) [facility] Daily Progress Note-Nephrolo gyon 05-04-2020 Daily Progress Note-Nephrology Service: Nephrology Subjective Data: LINDA PERALTA is a 75 year old Female who is Hospital Day # 3. renal function stable, remains on fluids, appetite decent but doesn't like the food, feeling better. Objective Data: Objective Information: T PRBPSpO2 Value36.29223492/8593% Date/Time05/04 14: 14: 14: 14: 14:39 Range(36.2C - 36.7C ) (71 - 93 ) (16 - 18 ) (139 - 156 )/ (85 - 92 ) (92% - 97% ) Pain reported at 05/04 8:26: 0 = None ---- Intake and Output ----- Mn/Dy/Year TimeIntakeOutputNet May 04, 2020 2:00 [id number] May 04, 2020 6:00 [id number] May 03, 2020 10:00 [id number] The Intake and Output Totals for the last 24 hours are: IntakeOutputNet [id number]\ Constitutional: Alert, in no acute distress HEENT: [...] partial nephrectomy, DVT/PE who was initially at [place] for AMS, hypercalcemia and hypotension now transferred here. 1. ANGELA on CKD: previously hypotensive at [place], now hypertensive, also CRS as pt is [...] Last Updated: 04-May-2020 15:19 by Leigh Billy) [facility] Daily Progress Note-Neurolog yon 05-04-2020 Daily Progress [...] better. Objective Data: Objective Information: T PRBPSpO2 Value36.67837323/8593% Date/Time05/04 14: 14: 14: 14: 14:39 Range(36.2C - 36.7C ) (71 - 93 ) (16 - 18 ) (139 - 156 )/ (85 - 92 ) (92% - 97% ) Pain reported at 05/04 8:26: 0 = None ---- Intake and Output ----- Mn/Dy/[facility]Out[facility] May 04, 2020 2:00 [id number] May 04, 2020 6:00 [id number] May 03, 2020 10:00 [id number] The Intake and Output Totals for the last 24 hours are: IntakeOutputNet [id number] Physical Exam by System: Neurological: The patient [...] Updated: 04-May-2020 16:25 by Vicky Boyd) Normal [facility] Discharge Planning Ounw4ua 0 05-04-2020 Discharge Planning Note2 Discharge Planning: Planned Dispositionskilled/rehab /extended care [facility] 16no [place] of Choice Explainedyes Visit Tranportation Needed from [place] (Adult Med/Surg) Is the Patient Being Discharged on an Opioidno Anticipated Discharge [id number] Discharge Planning 05/04/2020 1229 TCC PATIENT WAS TRANSFERRED FROM [facility] TO [facility] ON MAY 01. PER DR. STANLEY, PATIENT WAS AT [facility] FOR 9 DAYS BEFORE SHE TRANSFERRED TO [facility]. PATIENT'S DX: HYPERCALCEMIA, CHANGED MENTAL STATUS, ANGELA, PNEUMONIA, URINARY RETENTION AND LEUKOCYSTOSIS. PT HAS BEEN ORDERED TO EVALUATE. I MET WITH THE PATIENT WHO STATES SHE LIVES WITH HER . AICHA, THE RN CARING FOR THE PATIENT, STATES THAT THE IS IN THE [facility] AND HAS CA WITH METS. THE PATIENT STATES SHE IS INDEPENDENT WITH ADLS. THE PATIENT CAN COOK, BUT HER DAUGHTER DOES THE CLEANING AND LAUNDRY. PATIENT DOES HAVE A WALKER. DAUGHTER WILL TAKE TO MD APPOINTMENTS. THE PATIENT STATES THAT SHE HAS HHC WITH [facility] [facility] AND HER PREFERENCE IS TO DC HOME AND CONTINUE SERVICES WITH [facility]. OLY, THE PCN, IS AWARE. [facility] WILL CONTINUE TO FOLLOW. TALIA JAMES RN 05/04/20 2:43 pcn- Notified by TCC-talia that patient was previously active with [facility]. Provided home care list to from [facility] directory that includes agencies that are within [facility], patients insurance, meets patients medical needs, and in discharge zip code that patient prefers, and identifies each agencies [facility] star rating. Resumption of care referral submitted to [facility] and is currently under review. will await final d/c orders. SHANE Romero 05/05/2020 0950 TCC PT/OT STILL NEEDS TO EVALUATE PATIENT. AICHA, THE RN CARING FOR THE PATIENT, STATES THAT THE WAS TO DC YESTERDAY OR TODAY FROM THE [facility] PER THE DAUGHTER. SHE IS HELPING CARE FOR HIM AND PLANS TO BE THERE WHEN THE MOM DC. AICHA IS AWARE I WILL TALK WITH THE DAUGHTER AND PATIENT AGAIN ONCE PT/OT EVALUTES. DR. SOUTH IS AWARE THAT PATIENT IS ACTIVE WITH THE [facility] AND AT THIS TIME, DC PLAN IS HOME WITH CONTINUED SERVICES WITH THE [facility]. AICHA ALSO INFORMED ME THAT PATIENT'S POTASSIUM WAS 2.9 TODAY AND PO SUPPLEMENTS ARE BEING GIVEN. PATIENT STILL HAS EDEMA FROM [place]. PATIENT IS ON IV LASIX WELL. TCC WILL CONTINUE TO FOLLOW. TALIA JAMES RN 05/05/2020 1523 TCC PT [facility] IS 11. I WENT TO REVISIT PATIENT AND SHE IS SLEEPING. I CALLED THE DAUGHTER AND POA, SOULEYMANE SYEDRUFF. SOULEYMANE STATES THAT HER DAD IS STILL IN THE [facility] AND IS NOT BEING DC TODAY AND MAY BE THERE A FEW MORE DAYS. THERAPY EVALUATE DISCUSSED WITH SOULEYMANE AND SHE STATES THAT SHE FEELS THE PATIENT NEEDS TO GO TO REHAB AT [place] UNTIL SHE IS ABLE TO BE MORE INDEPENDENT WITH MAYBE A 1 PERSON ASSIST. SHE HAS REQUESTED [facility] SHE HAS BEEN THERE BEFORE AND [address] CHO[address] [facility] [place]. DR. SOUTH IS AWARE OF DC PLAN. OLY, THE PCN, IS AWARE WELL AND WILL SEND TO [facility] FOR THEM TO EVALUATE TO SEE IF PATIENT IS APPROPRIATE FOR REHAB AND THEN PRECERT WILL BE NEEDED. TCC WILL CONTINUE TO FOLLOW. TALIA JAMES RN 05/05/20 3:51 pcn- per talia-kiersten pt. will need snf setting on d/c, she has spoken to dtr. who is requesting [facility]/snf unit as she has been there in the past, [facility] choice [facility] [place], referral sent via cnc to [facility]. SHANE Romero 05/05/20 4:15 pcn-spoke with admissions at [facility] who states they are full at this time and have no beds available. referral sent to dtr's second choice [facility] [place]. spoke with dtr. comer to provide update. Oly Coles, BACTERIOLOGIST PHARMACEUTICAL 05/06/2020 1351 TCC I ROUNDED WITH DR. SOUTH AND HE STATES THAT PATIENT POTASSIUM IS STILL 2.9 TODAY AND SHE IS RECEIVING POTASSIUM REPLACEMENT. DR. SOUTH IS AWARE PRECERT HAS BEEN STARTED AND HE WOULD BE MADE AWARE WHEN OBTAINED. HE STATED UNDERSTANDING AND STATES PATIENT IS A PD IN 1-2 DAYS. TALIA JAMES RN 05/07/20 12:50 pcn-[facility] [place] [facility] received ins. precert and able to accept pt. per urology, no d/c today/voiding trial. informed facility. Oly Coles, BACTERIOLOGIST PHARMACEUTICAL 05/07/[address] SOUTH AND HE IS AWARE PRECERT HAS BEEN OBTAINED. PT NEEDS A VOIDING TRIAL AND THEN NEED FINAL OK TO DC FROM DR KIRKLAND. ROSS ERICH, UPDATED, WILL CONTINUE TO FOLLOW, MADAN ALEXIS, AWARE PT MAY STILL DC TODAY. Anette MONDRAGON, RN, [facility] 05/07/[address] OVALLES AND HE WILL HOLD DC TODAY, WILL PLAN DC FOR TOMORROW HE DETERMINES VOIDING TRIAL RESULTS. MADAN ALEXIS, UPDATED. Anette MONDRAGON, RN, [facility] 05/08/20 2:05 pcn-per [facility] [place] they have received ins. precert and able to accept pt. pt. will d/c this date to [facility] at 5:30 pm via [facility] wheelchair van. spoke with pt. and dtr. who are aware and in agreement to transport and cost of transportation. SHANE Romero Assessment: Discharge Planning Assessment [id number] Primary Contact Name and NumberSouleymane Lopez - [phone] (daughter)(1) Stated Reason for Admissionpatient states I fell. (1) Arrived Fromhospital (1) Readmission Within the Last 30 Daysno previous admission in last 30 days Lives Withspouse(1) Living Arrangementshouse(1) Equipment Currently Used at [facility] Resource/Environmental Concernsnone(1) Anticipated Transition [place] with help/services Services Anticipated at [facility] care(1) Anticipated Changes Related to Illnessnone Equipment Needed After Dischargenone [facility] Electronic Signatures: Anette Roy (COOR) (Signed 07-May-2020 14:36) Authored: Discharge Planning Oly Leon (PCN) (Signed 08-May-2020 14:07) Authored: Discharge Planning Emmie James (COOR) (Signed 06-May-2020 13:59) Authored: Discharge Planning, Assessment Magnus Coely (COOR) (Signed 08-May-2020 14:08) Authored: Discharge Planning, Assessment Last Updated: 08-May-2020 14:08 by Magnus Coley (COOR) References: 1. Data Referenced From Patient Profile - Adult v2 02-May-2020 00:48 Normal [facility] EMR ADDONon 05-04-2020 ADDON CONFIRMATION REQUEST REC'D Normal [facility] Comment on above: Performed By: #### P R12 #### [facility] [id number] [place] [address] NR MRI L-SPINE WOon 05-05-19 21 NR MRI L-SPINE WO Patient Name: LINDA PERALTA STUDY: MRI T-SPINE WO; MRI L-SPINE WO; 05/04/2020 1:26 pm INDICATION: Urinary retention bilateral leg weakness. COMPARISON: CT chest abdomen and pelvis from 05/03/2020 ACCESSION NUMBER(S): [id number]; [id number] ORDERING CLINICIAN: NANI STANLEY TECHNIQUE: Sagittal T1 [...] pelvis. Electronically signed by: BRADLEY BECERRA MD [facility] NR MRI T-SPINE WOon 05-05-19 NR MRI T-SPINE WO Patient Name: LINDA PERALTA STUDY: MRI T-SPINE WO; MRI L-SPINE WO; 05/04/2020 1:26 pm INDICATION: Urinary retention bilateral leg weakness. COMPARISON: CT chest abdomen and pelvis from 05/03/2020 ACCESSION NUMBER(S): [id number]; [id number] ORDERING CLINICIAN: NANI STANLEY TECHNIQUE: Sagittal T1 [...] Electronically signed by: BRADLEY BECERRA MD Normal [facility] PROTEIN ELECTROPHORESIS + IM MUNOFIXATION, SERUMon 05-04-2020 GAMMA GLOBULIN 0.9 g/dL Normal 0.5 - 1.4 [facility] Comment on above: Performed By: #### I FE2 ####[id number] [place] [address] Albumin [Mass/Vol] 3.1 g/dL Low 3.4 - 5.0 [facility] Comment on above: Performed By: #### I FE2 ####[address] [id number] [place] [address] ALPHA 1 GLOBULIN 0.3 g/dL Normal 0.2 - 0.6 [facility] Comment on above: Performed By: #### I FE2 ####[address] [id number] [place] [address] ALPHA 2 GLOBULIN 0.6 g/dL Normal 0.4 - 1.1 [facility] Comment on above: Performed By: #### I FE2 ####[address] [id number] [place] [address] BETA GLOBULIN 0.6 g/dL Normal 0.5 - 1.2 [facility] Comment on above: Performed By: #### I FE2 ####[id number] [place] [address] PT/INRon 05-04-2020 INR Coag (PPP) [Relative time] 2.3 {INR} High 0.9 - 1.1 [facility] Comment on above: Performed By: #### C MP #### [address] [id number] PT Coag (PPP) [Time] 27.5 s High 10.1 - 13.3 [facility] Comment on above: Performed By: #### C MP #### [address] [id number] BLOOD CULTURE, BACTERIALon 0 05-03-2020 BLOOD CULTURE, BACTERIAL PATIENT: LINDA PERALTA LOCATION: [address]#: [id number] : 41 AGE: SEX: F ORDERED BY: NANI STANLEY SOURCE: Blood COLLECTED: 05/03/20 10:49 ANTIBIOTICS AT [facility].: RECEIVED : 05/03/20 21:14 SITE: R E S U L T S BLOOD CULTURE, BACTERIAL FINAL 05/08/20 21:42 No Growth at 1 days No Growth at 2 days No Growth at 3 days No Growth at 4 days NO GROWTH - FINAL REPORT Normal [facility] Comment on above: Performed By: #### C A #### [address] [id number] BLOOD CULTURE, BACTERIAL PATIENT: LINDA PERALTA LOCATION: [address]#: [id number] : 41 AGE: SEX: F ORDERED BY: NANI STANLEY SOURCE: Blood COLLECTED: 05/03/20 10:48 ANTIBIOTICS AT [facility].: RECEIVED : 05/03/20 21:08 SITE: R E S U L T S BLOOD CULTURE, BACTERIAL FINAL 05/08/20 21:42 No Growth at 1 days No Growth at 2 days No Growth at 3 days No Growth at 4 days NO GROWTH - FINAL REPORT Normal [facility] Comment on above: Performed By: #### C A #### [address] [id number] CBCon 05-03-2020 Erythrocyte distribution width (RBC) [Ratio] 16.0 % High 11.5 - 14.5 [facility] Comment on above: Performed By: #### C MP #### [address] [id number] Hematocrit (Bld) [Volume fraction] 33.8 % Low 36.0 - 46.0 [facility] Comment on above: Performed By: #### C MP #### [address] [id number] Hemoglobin (Bld) [Mass/Vol] 11.1 g/dL Low 12.0 - 16.0 [facility] Comment on above: Performed By: #### C MP #### [address] [id number] MCHC (RBC) [Mass/Vol] 32.8 g/dL Normal 32.0 - 36.0 [facility] Comment on above: Performed By: #### C MP #### [address] [id number] MCV (RBC) [Entitic vol] 89 fL Normal 80 - 100 [facility] Comment on above: Performed By: #### C MP #### [address] [id number] Platelets (Bld) [#/Vol] 405 10*3/uL Normal 150 - 450 [facility] Comment on above: Performed By: #### C MP #### [address] [id number] RBC (Bld) [#/Vol] 3.81 x10E12/L Low 4.00 - 5.20 [facility] Comment on above: Performed By: #### C MP #### [address] [id number] WBC (Bld) [#/Vol] 22.9 10*3/uL High 4.4 - 11.3 [facility] Comment on above: Performed By: #### C MP #### [address] [id number] COMPREHENSIVE PANELon 2020 Albumin [Mass/Vol] 2.7 g/dL Low 3.4 - 5.0 [facility] Comment on above: Performed By: #### C MP #### [address] [id number] ALP [Catalytic activity/Vol] 67 U/L Normal 33 - 136 [facility] Comment on above: Performed By: #### C MP #### [address] [id number] ALT [Catalytic activity/Vol] 48 U/L High 7 - 45 [facility] Comment on above: Result Comment: Liz ents treated with Sulfasalazine may generate falsely decreased results for ALT. Performed By: #### C MP #### [address] [id number] Anion gap [Moles/Vol] 14 mmol/L Normal 10 - 20 [facility] Comment on above: Performed By: #### C MP #### [address] [id number] AST [Catalytic activity/Vol] 16 U/L Normal 9 - 39 [facility] Comment on above: Performed By: #### C MP #### [address] [id number] Bilirubin [Mass/Vol] 0.6 mg/dL Normal 0.0 - 1.2 [facility] Comment on above: Performed By: #### C MP #### [address] [id number] Calcium [Mass/Vol] 10.8 mg/dL High 8.6 - 10.3 [facility] Comment on above: Performed By: #### C MP #### [address] [id number] Chloride [Moles/Vol] 101 mmol/L Normal 98 - 107 [facility] Comment on above: Performed By: #### C MP #### [address] [id number] Creatinine [Mass/Vol] 2.39 mg/dL High 0.50 - 1.05 [facility] Comment on above: Performed By: #### C MP #### [address] [id number] GFR- AM. 24 mL/min/1.73m2 Abnormal >60 [facility] Comment on above: Result Comment: CALC ULATIONS OF ESTIMATED GFR ARE PERFORMED USING THE MDRD STUDY EQUATION FOR THE IDMS-TRACEABLE CREATININE METHODS. CLIN CHEM 2007;53:766-72 Performed By: #### C MP #### [address] [id number] GFR-NON AM. 20 mL/min/1.73m2 Abnormal >60 [facility] Comment on above: Performed By: #### C MP #### [address] [id number] Glucose [Mass/Vol] 93 mg/dL Normal 74 - 99 [facility] Comment on above: Performed By: #### C MP #### [address] [id number] HCO3 (Bld) [Moles/Vol] 26 mmol/L Normal 21 - 32 [facility] Comment on above: Performed By: #### C MP #### [address] [id number] Potassium [Moles/Vol] 3.3 mmol/L Low 3.5 - 5.3 [facility] Comment on above: Performed By: #### C MP #### [address] [id number] Protein [Mass/Vol] 4.8 g/dL Low 6.4 - 8.2 [facility] Comment on above: Performed By: #### C MP #### [address] [id number] Sodium [Moles/Vol] 138 mmol/L Normal 136 - 145 [facility] Comment on above: Performed By: #### C MP #### [address] [id number] Urea nitrogen [Mass/Vol] 86 mg/dL High 6 - 23 [facility] Comment on above: Performed By: #### C #### [id number] CHEST [facility]2020 CT CHEST ABDOMEN PELVIS WO CONTRAST Patient Name: LINDA PERALTA STUDY: CT CHEST ABDOMEN PELVIS WO CONTRAST; 05/03/2020 9:48 am INDICATION: pneumonia abnormal renal ultrasound hx of solitary kidney. COMPARISON: None. ACCESSION NUMBER(S): [id number] ORDERING CLINICIAN: NANI STANLEY TECHNIQUE: CT of the chest, abdomen and pelvis was performed. Contiguous axial images were obtained at 3 mm slice thickness through the chest, abdomen and pelvis. Coronal and sagittal reconstructions at 3 mm slice thickness were performed. No intravenous or oral contrast agents were administered. FINDINGS: Please note that the study is limited without intravenous contrast. CHEST: LUNG/PLEURA/LARGE AIRWAYS: Aohk-me-tdmrlqxv left and trace right pleural effusion. No [...] above. Electronically signed by: JARED GALLARDO MD [facility] Consult - Neuroon 05-03-2020 Consult - Neuro [...] The patient also has a history of [place]'s disease Orthostatic hypotension She was on B12 [...] penicillins: Rash Objective: Objective Information: T PRBPSpO2 Utigl191641466/9593% Date/Time05/02 19: 19: 19: 19: 19:16 Range(36.2C [...] fasciculations or involuntary movements are seen. On Lena testing, there is no pronation or drift. [...] RA Area A4C: 16.4 cm2 RA Major Van A4C: 5.0 cm M-MODE MEASUREMENTS: Normal Ranges: [...] 1.2 m/s (0.6-0.9m/s) PV Max P.2 mmHg [id number] Tremayne Mcleod MD Electronically signed on 05/02/2020 [...] with you Consult Status: Consult Order ID: [id number] Electronic Signatures: Vicky Boyd) (Signed 02-May-2020 23:13) Authored: Service, History of Present Illness, Allergies, Objective, Assessment/Recommendatio ns, Note Completion Last Updated: 02-May-2020 23:13 by Vicky Boyd) [facility] Consult-Infectious Diseaseon 05-03-2020 Consult-Infectious Disease Service: Service: [...] penicillins: Rash Consult Status: Consult Order ID: [id number] Electronic Signatures: Di Estrada () (Signed 04-May-2020 06:05) Authored: Service, History of Present Illness, Allergies, Assessment/Recommendatio ns, Note Completion Last Updated: 04-May-2020 06:05 by Di Estrada () Normal [facility] Daily Progress Note-Medicine on 05-03-2020 Daily Progress Note-Medicine Service: Medicine Subjective Data: LINDA PERALTA is a 75 year old Female who is Hospital Day # 3. Patient laying in bed has fatigue denies any pain no chest pain or shortness of breath has nausea but no vomiting. Objective Data: Objective Information: T PRBPSpO2 Value36.21650758/8596% Date/Time05/03 7: 7: 7: 7: 7:33 Range(36.3C - 37.3C ) (94 - 95 ) (17 - 18 ) (132 - 176 )/ (85 - 106 ) (93% - 96% ) Highest temp of 37.3 C was recorded at 05/02 23:10 Pain reported at 05/03 10:44: 0 = None ---- Intake and Output ----- Mn/Dy/Year TimeIntakeOutputNet May 03, 2020 6:00 [id number] May 02, 2020 2:00 [id number] The Intake and Output Totals for the last 24 hours are: IntakeOutputNet [id number] Physical Exam by System: Constitutional: Well developed, [...] Mild to moderately elevated pulmonary artery pressure. [id number] Tremayne Mcleod MD Electronically signed on 05/02/2020 [...] Last Updated: 03-May-2020 11:18 by Nani Stanley) [facility] Daily Progress Note-Nephrolo gyon 05-03-2020 Daily Progress Note-Nephrology Service: Nephrology Subjective Data: LINDA PREALTA is a 75 year old Female who is Hospital Day # 3. renal function stable, Ca better, BP better. Objective Data: Objective Information: T PRBPSpO2 Value36.74978677/8596% Date/Time05/03 7: 7: 7: 7: 7:33 Range(36.3C - 37.3C ) (94 - 95 ) (17 - 18 ) (132 - 176 )/ (85 - 106 ) (93% - 96% ) Highest temp of 37.3 C was recorded at 05/02 23:10 Pain reported at 05/03 10:44: 0 = None ---- Intake and Output ----- Mn/Dy/Year TimeIntakeOutputNet May 03, 2020 6:00 [id number] May 02, 2020 2:00 [id number] The Intake and Output Totals for the last 24 hours are: IntakeOutputNet [id number] Constitutional: Alert, in no acute distress HEENT: [...] partial nephrectomy, DVT/PE who was initially at [place] for AMS, hypercalcemia and hypotension now transferred here. 1. ANGELA on CKD: previously hypotensive at [place], now hypertensive, also CRS as pt is [...] Last Updated: 03-May-2020 12:33 by Leigh Billy) Normal [facility] Daily Progress Note-Neurolog yon 05-03-2020 Daily Progress Note-Neurology Service: Neurology Subjective Data: LINDA PERALTA is a 75 year old Female who is Hospital Day # 3. The patient examined feeling weak all over Overall intake output He is urinated Maalox did not help. She did not want Zofran or Phenergan. Objective Data: Objective Information: T PRBPSpO2 Value36.21828329/9296% Date/Time05/03 19: 19: 19: 19: 19:16 Range(36.3C - 37.3C ) (89 - 95 ) (16 - 18 ) (132 - 162 )/ (85 - 95 ) (93% - 96% ) Highest temp of 37.3 C was recorded at 05/02 23:10 Pain reported at 05/03 10:44: 0 = None ---- Intake and Output ----- Mn/Dy/Year TimeIntakeOutputNet May 03, 2020 2:00 [id number] May 03, 2020 6:00 [id number] The Intake and Output Totals for the last 24 hours are: [facility] [id number] Physical Exam by System: Neurological: The patient [...] Reference Range: STRAW,YELLOW Appearance, Urine CLEAR Specific [place], Urine 1.008 pH, Urine 6.0 Protein, Urine [...] Level 1.8 Comprehensive Metabolic Panel Trending View [id number] 05:31:00 02-May-2020 02:22:00 Glucose, Serum93 184 H NA138 138 K3.3 L 4.2 CL101 101 Bicarbonate, Serum26 26 Anion Gap, Serum14 15 BUN86 H 84 H CREAT2.39 H 2.31 H GFR-Non Gcbngsih81 A 20 A GFR- Pyvhckej75 A 24 A Calcium, Serum10.8 H 12.3 [...] kidney to her brother Sarcoidosis History of [place]'s disease Gout Chronic kidney disease Hyperlipidemia Atopic [...] Updated: 03-May-2020 20:53 by Vicky Boyd) Normal [facility] FOLATE, SERUMon 05-03-2020 Folate [Mass/Vol] 13.5 ng/mL Normal >5.0 [facility] Comment on above: Result Comment: Low <3.4 Borderline 3.4-5.0 Normal >5.0 . Patients receiving more than 5 mg/day of biotin may have interference in test results. A sample should be taken no sooner than eight hours after previous dose. Contact the testing laboratory for additional information. Performed By: #### C MP #### [address] [id number] LACTATEon 05-03-2020 Lactate [Moles/Vol] 1.8 mmol/L Normal 0.4 - 2.0 [facility] Comment on above: Result Comment: Nadia puncture immediately after or during the administration of Metamizole may lead to falsely low results. Testing should be performed immediately prior to Metamizole dosing. Performed By: #### C BC #### [address] [id number] PARATHYROID HORMONE,INTACTon 05-03-2020 PARATHYROID HORMONE,INTACT 19.6 pg/mL Normal 12.0 - 88.0 [facility] Comment on above: Performed By: #### P TH ####[address] [id number] PT/INRon 05-03-2020 INR Coag (PPP) [Relative time] 2.8 {INR} High 0.9 - 1.1 [facility] Comment on above: Performed By: #### P TINR ####[address] [id number] PT Coag (PPP) [Time] 33.4 s High 10.1 - 13.3 [facility] Comment on above: Performed By: #### P TINR ####[address] [id number] UA MICROSCOPICon 05-03-2020 MUCUS 1+ /LPF Normal [facility] Comment on above: Performed By: #### P R12 #### [facility] [address] [place] [address] RBC 9 /HPF Abnormal 0-5 [facility] Comment on above: Performed By: #### P R12 #### [facility] [address] [place] [address] SQUAMOUS EPITH. CELLS 2 /HPF Normal [facility] Comment on above: Performed By: #### P R12 #### [facility] [address] [place] [address] WBC 7 /HPF Abnormal 0-5 [facility] Comment on above: Performed By: #### P R12 #### [facility] [address] [place] [address] URINALYSISon 05-03-2020 Appearance (U) Canceled Normal [facility] Comment on above: Order Comment: TEST URINALYSIS WAS CANCELLED, 05/03/2020 14:06 DUPLICATE ORDER. Performed By: #### U A ####[address] [id number] ASCORBIC ACID Canceled Normal [facility] Comment on above: Order Comment: TEST URINALYSIS WAS CANCELLED, 05/03/2020 14:06 DUPLICATE ORDER. Result Comment: Conc entrations > = 20 mg/dL of ascorbic acid can be expected to cause strong interference in the reactions testing for glucose, nitrite and blood. It is recommended to discontinue Vitamin C administration and retest in 10 hours. Performed By: #### U A ####[address] [id number] Bilirubin (U) [Mass/Vol] Canceled Normal [facility] Comment on above: Order Comment: TEST URINALYSIS WAS CANCELLED, 05/03/2020 14:06 DUPLICATE ORDER. Performed By: #### U A ####[address] [id number] BLOOD Canceled Normal [facility] Comment on above: Order Comment: TEST URINALYSIS WAS CANCELLED, 05/03/2020 14:06 DUPLICATE ORDER. Performed By: #### U A ####[address] [id number] Color (U) Canceled Normal [facility] Comment on above: Order Comment: TEST URINALYSIS WAS CANCELLED, 05/03/2020 14:06 DUPLICATE ORDER. Performed By: #### U A ####[address] [id number] Glucose [Mass/Vol] Canceled Normal [facility] Comment on above: Order Comment: TEST URINALYSIS WAS CANCELLED, 05/03/2020 14:06 DUPLICATE ORDER. Performed By: #### U A ####[address] [id number] Ketones Ql (U) Canceled Normal [facility] Comment on above: Order Comment: TEST URINALYSIS WAS CANCELLED, 05/03/2020 14:06 DUPLICATE ORDER. Performed By: #### U A ####[address] [id number] Leukocyte esterase Test strip Ql (U) Canceled Normal [facility] Comment on above: Order Comment: TEST URINALYSIS WAS CANCELLED, 05/03/2020 14:06 DUPLICATE ORDER. Performed By: #### U A ####[address] [id number] Nitrite Ql (U) Canceled Normal [facility] Comment on above: Order Comment: TEST URINALYSIS WAS CANCELLED, 05/03/2020 14:06 DUPLICATE ORDER. Performed By: #### U A ####[address] [id number] pH (Bld) Canceled Normal [facility] Comment on above: Order Comment: TEST URINALYSIS WAS CANCELLED, 05/03/2020 14:06 DUPLICATE ORDER. Performed By: #### U A ####[address] [id number] Protein (U) [Mass/Vol] Canceled Normal [facility] Comment on above: Order Comment: TEST URINALYSIS WAS CANCELLED, 05/03/2020 14:06 DUPLICATE ORDER. Performed By: #### U A ####[address] [id number] Specific gravity (U) [Rel density] Canceled Normal [facility] Comment on above: Order Comment: TEST URINALYSIS WAS CANCELLED, 05/03/2020 14:06 DUPLICATE ORDER. Performed By: #### U A ####[address] [id number] Urobilinogen Qn (U) Canceled Normal [facility] Comment on above: Order Comment: TEST URINALYSIS WAS CANCELLED, 05/03/2020 14:06 DUPLICATE ORDER. Performed By: #### U A ####[address] [id number] URINALYSIS WITH CULTURE IF I NDICATEDon 05-03-2020 Appearance (U) CLEAR Normal CLEAR [facility] Comment on above: Performed By: #### C MP #### [facility] [address] [place], [place] [id number] Bilirubin (U) [Mass/Vol] Negative Normal NEGATIVE [facility] Comment on above: Performed By: #### C MP #### [address] [id number] BLOOD SMALL(1+) Abnormal NEGATIVE [facility] Comment on above: Performed By: #### C MP #### [address] [id number] Color (U) STRAW Normal STRAW,YELLOW [facility] Comment on above: Performed By: #### C MP #### [address] [id number] Glucose [Mass/Vol] Negative Normal NEGATIVE [facility] Comment on above: Performed By: #### C MP #### [address] [id number] Ketones Ql (U) Negative Normal NEGATIVE [facility] Comment on above: Performed By: #### C MP #### [address] [id number] Leukocyte esterase Test strip Ql (U) SMALL (1+) Abnormal NEGATIVE [facility] Comment on above: Performed By: #### C MP #### [address] [id number] Nitrite Ql (U) Negative Normal NEGATIVE [facility] Comment on above: Performed By: #### C MP #### [address] [id number] pH (Bld) 6.0 Normal 5.0 - 8.0 [facility] Comment on above: Performed By: #### C MP #### [address] [id number] Protein (U) [Mass/Vol] Negative Normal NEGATIVE [facility] Comment on above: Performed By: #### C MP #### [address] [id number] Specific gravity (U) [Rel density] 1.008 Normal 1.005 - 1.035 [facility] Comment on above: Performed By: #### C MP #### [address] [id number] Urobilinogen Qn (U) <2.0 Normal 0.0 - 1.9 [facility] Comment on above: Performed By: #### C MP #### [address] [id number] Lab Specimen Source Normal [facility] Comment on above: Performed By: #### C MP #### [address] [id number] Performed By: #### P R12 #### [facility] [address] [place] [id number] URINE CULTURE,BACTERIALon URINE CULTURE,BACTERIAL PATIENT: LINDA PERALTA LOCATION: [address]#: [id number] : 41 AGE: SEX: F ORDERED BY: NANI STANLEY SOURCE: URINE COLLECTED: 05/03/20 11:12 ANTIBIOTICS AT [facility].: RECEIVED : 05/03/20 21:18 SITE: R E S U L T S URINE CULTURE,BACTERIAL FINAL 05/04/20 14:08 NO GROWTH Normal [facility] Comment on above: Performed By: #### P R12 #### [facility] [address] [place] [id number] US CAROTID BILATERAL DUPLEXo n 05-03-2020 US CAROTID BILATERAL DUPLEX Patient Name: LINDA PERALTA STUDY: US CAROTID BILATERAL DUPLEX; 05/03/2020 10:18 am INDICATION: Change in the mental status question of strokes, gait ataxia and falls, fainting spells. COMPARISON: None. ACCESSION NUMBER(S): [id number] ORDERING CLINICIAN: VICKY BOYD FINDINGS: Duplex scan [...] year. Electronically signed by: VICKY BOYD MD [facility] Admission Risk Screen - Adul ton 05-02-2020 [...] DNR-CCA Availabilityplaced on chart DNR-CCA Placed on [id number] Advanced Directive Commentno intubation Gillespie Fall Screen: [...] instruction; written material Cultural Considerationsnone Developmental Considerationsnone Christian Considerationsnone Learning Assessment (Other Learner): Other learner availableno Depression Screen: During the past month, have you often been bothered by feeling down, depressed or hopelessyes is sick (dx of [place]) During the past month, have you often had little interest or pleasure in doing thingsno Have you had any thoughts of harming anyone elseno Mcdaniels Suicide: Risk Screen Not Applicable/Able to Answerable to be screened In the Past Month: Have you wished you were or could go to sleep and not wake upno In the Past Month: Have you had any actual thoughts of killing yourselfno Lifetime: Have you ever done, started to do, or prepared to do anything to end your lifeno Mcdaniels Suicide Risknegative Adult Nutrition Screen: Have you [...] Spiritual Screen: Are there any cultural, spiritual, yarsani practices/values/needs that are important for us to knowno CAGE: Is this an injured patient at a Trauma Center ([facility]/[place] /[place]): no Vaccinations: Vaccination - Influenza Vaccination Screen: [...] Injury Photo Takenno Electronic Signatures: Nehemias Mercado (ROSS) (Signed 02-May-2020 01:37) Authored: Admission Risk Screens, Gillespie Fall Screen, Vaccinations, Oniel, Pressure Injury Last Updated: 02-May-2020 01:37 by Nehemias Mercado (ROSS) Normal [facility] BNPon 05-02-2020 Natriuretic peptide B (Bld) [Mass/Vol] 1665 pg/mL High 0 - 99 [facility] Comment on above: Result Comment: . <1 00 pg/mL - Heart failure unlikely 100-299 pg/mL - Intermediate probability of acute heart . failure exacerbation. Correlate with clinical . context and patient history. >=300 pg/mL - Heart Failure likely. Correlate with clinical . context and patient history. BNP testing is performed using different testing methodology at [facility] than at other [facility]. Direct result comparisons should only be made within the same method. Performed By: #### C BC #### [facility] [address] [place], [place] [id number] C-REACTIVE PROTEINon 021 CRP [Mass/Vol] 1.41 mg/dL Abnormal [facility] Comment on above: Result Comment: REF VALUE < 1.00 Performed By: #### C MP #### [address] [id number] CALCIUMon 05-02-2020 Calcium [Mass/Vol] Canceled Normal [facility] Comment on above: Order Comment: TEST CALCIUM WAS CANCELLED, 05/02/2020 12:20 added per RN 05/02/2020 12:20. Performed By: #### C A #### [address] [id number] CALCIUM, IONIZEDon 1 CALCIUM,IONIZED 1.71 mmol/L High 1.10 - 1.33 [facility] Comment on above: Performed By: #### C MP #### [address] [id number] CBC AND DIFFERENTIALon 05-02 % AUTOMATED IMMATURE GRAN 5.6 % High 0.0 - 0.9 [facility] Comment on above: Result Comment: Linda ture Granulocyte Count (IG) includes promyelocytes, myelocytes and metamyelocytes but does not include bands. Percent differential counts (%) should be interpreted in the context of the absolute cell counts (cells/L). Performed By: #### C BC #### [address] [id number] DIFFERENTIAL SEE MANUAL DIFF Normal [facility] Comment on above: Performed By: #### C BC #### [address] [id number] Erythrocyte distribution width (RBC) [Ratio] 15.7 % High 11.5 - 14.5 [facility] Comment on above: Performed By: #### C BC #### [address] [id number] Hematocrit (Bld) [Volume fraction] 34.1 % Low 36.0 - 46.0 [facility] Comment on above: Performed By: #### C BC #### [address] [id number] Hemoglobin (Bld) [Mass/Vol] 11.2 g/dL Low 12.0 - 16.0 [facility] Comment on above: Performed By: #### C BC #### [address] [id number] MCHC (RBC) [Mass/Vol] 32.8 g/dL Normal 32.0 - 36.0 [facility] Comment on above: Performed By: #### C BC #### [address] [id number] MCV (RBC) [Entitic vol] 90 fL Normal 80 - 100 [facility] Comment on above: Performed By: #### C BC #### [address] [id number] Platelets (Bld) [#/Vol] 378 10*3/uL Normal 150 - 450 [facility] Comment on above: Performed By: #### C BC #### [address] [id number] RBC (Bld) [#/Vol] 3.81 x10E12/L Low 4.00 - 5.20 [facility] Comment on above: Performed By: #### C BC #### [address] [id number] WBC (Bld) [#/Vol] 17.9 10*3/uL High 4.4 - 11.3 [facility] Comment on above: Performed By: #### C BC #### [address] [id number] CHEST 2 VIEW PA AND LATon CHEST 2 VIEW PA AND LAT Patient Name: LINDA PERALTA STUDY: CHEST 2 VIEW PA AND LAT; 05/02/2020 12:49 pm INDICATION: hypoxia. COMPARISON: None. ACCESSION NUMBER(S): [id number] ORDERING CLINICIAN: NANI STANLEY FINDINGS: CARDIOMEDIASTINAL SILHOUETTE AND VASCULATURE: Cardiac size: Mild cardiomegaly Aortic shadow: Within normal limits considering technique Mediastinal contours: Within normal limits considering technique Pulmonary vasculature: The central vasculature is unremarkable LUNGS: There is opacification at the left lower lung probably from othy-ma-ganjeopv pleural effusion and underlying atelectasis or consolidation. [...] Electronically signed by: ALBERTO HARRIS MD Normal [facility] COAGULATION SCREENon 021 aPTT Coag (Bld) [Time] 25 s Normal 25 - 35 [facility] Comment on above: Result Comment: THE APTT IS NO LONGER USED FOR MONITORING UNFRACTIONATED HEPARIN THERAPY. FOR MONITORING HEPARIN THERAPY, USE THE HEPARIN ASSAY. Performed By: #### C MP #### [address] [id number] INR Coag (PPP) [Relative time] 2.4 {INR} High 0.9 - 1.1 [facility] Comment on above: Performed By: #### C MP #### [address] [id number] PT Coag (PPP) [Time] 28.4 s High 10.1 - 13.3 [facility] Comment on above: Performed By: #### C MP #### [address] [id number] COMPREHENSIVE PANELon 2020 Albumin [Mass/Vol] 3.0 g/dL Low 3.4 - 5.0 [facility] Comment on above: Performed By: #### C MP #### [address] [id number] ALP [Catalytic activity/Vol] 79 U/L Normal 33 - 136 [facility] Comment on above: Performed By: #### C MP #### [address] [id number] ALT [Catalytic activity/Vol] 64 U/L High 7 - 45 [facility] Comment on above: Result Comment: Liz ents treated with Sulfasalazine may generate falsely decreased results for ALT. Performed By: #### C MP #### [address] [id number] Anion gap [Moles/Vol] 15 mmol/L Normal 10 - 20 [facility] Comment on above: Performed By: #### C MP #### [address] [id number] AST [Catalytic activity/Vol] 18 U/L Normal 9 - 39 [facility] Comment on above: Performed By: #### C MP #### [address] [id number] Bilirubin [Mass/Vol] 0.7 mg/dL Normal 0.0 - 1.2 [facility] Comment on above: Performed By: #### C MP #### [address] [id number] Calcium [Mass/Vol] 12.3 mg/dL High 8.6 - 10.3 [facility] Comment on above: Performed By: #### C MP #### [address] [id number] Chloride [Moles/Vol] 101 mmol/L Normal 98 - 107 [facility] Comment on above: Performed By: #### C MP #### [address] [id number] Creatinine [Mass/Vol] 2.31 mg/dL High 0.50 - 1.05 [facility] Comment on above: Performed By: #### C MP #### [address] [id number] GFR- AM. 24 mL/min/1.73m2 Abnormal >60 [facility] Comment on above: Result Comment: CALC ULATIONS OF ESTIMATED GFR ARE PERFORMED USING THE MDRD STUDY EQUATION FOR THE IDMS-TRACEABLE CREATININE METHODS. CLIN CHEM 2007;53:766-72 Performed By: #### C MP #### [address] [id number] GFR-NON AM. 20 mL/min/1.73m2 Abnormal >60 [facility] Comment on above: Performed By: #### C MP #### [address] [id number] Glucose [Mass/Vol] 184 mg/dL High 74 - 99 [facility] Comment on above: Performed By: #### C MP #### [address] [id number] HCO3 (Bld) [Moles/Vol] 26 mmol/L Normal 21 - 32 [facility] Comment on above: Performed By: #### C MP #### [address] [id number] Potassium [Moles/Vol] 4.2 mmol/L Normal 3.5 - 5.3 [facility] Comment on above: Performed By: #### C MP #### [address] [id number] Sodium [Moles/Vol] 138 mmol/L Normal 136 - 145 [facility] Comment on above: Performed By: #### C MP #### [address] [id number] Urea nitrogen [Mass/Vol] 84 mg/dL High 6 - 23 [facility] Comment on above: Performed By: #### C MP #### [address] [id number] CREATINE KINASEon 05-02-2020 CK [Catalytic activity/Vol] 28 U/L Normal 0 - 215 [facility] Comment on above: Performed By: #### C A #### [address] [id number] Consult-Nephrologyon 021 Consult-Nephrology Service: Service: Nephrology Consult: Consult requested by (Attending Name): Nani Stanley Reason: ANGELA History of Present Illness: HPI: LINDA PERALTA is a 75 year old Female w/ history s/f HTN, CAD, moris's disease, solitary kidney c/b RCC s/p partial nephrectomy, 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 Tarango PMHx: DVT/PE on warfarin, renal [...] penicillins: Rash Objective: Objective Information: T PRBPSpO2 Value36.91913062/8396% Date/Time05/02 8: 10: 8: 10: 8:30 Range(36.2C [...] Comment SEE MANUAL DIFF Comprehensive Metabolic Panel 13-Mar-2021 02:22:00 ResultValue Glucose, Serum 184 H NA [...] partial nephrectomy, DVT/PE who was initially at [place] for AMS, hypercalcemia and hypotension now transferred here. 1. ANGELA on CKD: previously hypotensive at [facility], now hypertensive, also CRS as pt is [...] to follow Consult Status: Consult Order ID: [id number] Electronic Signatures: Leigh Billy) (Signed 02-May-2020 12:52) Authored: Service, History of Present Illness, Allergies, Objective, Assessment/Recommendatio ns, Note Completion Last Updated: 02-May-2020 12:52 by Leigh Billy) Normal [facility] Daily Progress Note-Medicine on 05-02-2020 Daily [...] changes. Objective Data: Objective Information: T PRBPSpO2 Value36.29623249/8396% Date/Time05/02 8: 10: 8: 10: 8:30 Range(36.2C [...] 1665, echo normal EF. 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 Presenting creatinine 3/3 at [facility] 1.82 Impression 3: Altered mental status Plan [...] Signature/Cosignature/At testation: Note Completion: I am a: MANAGER TRACK Student MANAGER TRACK Student AttestationI was present with the MANAGER TRACK student who participated in the documentation of this note. I have personally seen and re-examined the patient and performed the medical decision-making components (assessment and plan of care). I have reviewed the MANAGER TRACK student documentation and verified the findings in the note as written with additions or exceptions as stated in the body of this note. I personally evaluated the patient [id number] Comments/ Additional Findings Patient was seen and [...] Updated: 02-May-2020 16:15 by Nani Stanley) Normal [facility] History and Physicalon 05-02 History and [...] a day. Objective: Objective Information: T PRBPSpO2 Value36.98867184/66381% Date/Time05/02 4: 4: 19: 4: 4:22 Range(36.3C [...] to decline elective intubation order entered in [facility] to reflect pt's wishes Signatures/Attestation/C ertification: Note Completion Attending Provider Inpatient Certification StatementI certify this patients need for inpatient care based on the above documentation including; the order to admit as inpatient, the anticipated length of stay, diagnosis, problem list and plan of care, and discharge plan. Admission Order - View OnlyCurrent Admission Order. Admit to Inpatient Adult Community Transfer to, [facility]: [address] Admitting Diagnosis, E83.52 Hypercalcemia , Attending [...] Updated: 02-May-2020 12:26 by Leigh Billy) Normal [facility] LACTATEon 05-02-2020 Lactate [Moles/Vol] 1.8 mmol/L Normal 0.4 - 2.0 [facility] Comment on above: Result Comment: Nadia puncture immediately after or during the administration of Metamizole may lead to falsely low results. Testing should be performed immediately prior to Metamizole dosing. Performed By: #### C BC #### [facility] [address] [place], [place] [id number] MAGNESIUMon 05-02-2020 Magnesium [Mass/Vol] 2.00 mg/dL Normal 1.60 - 2.40 [facility] Comment on above: Performed By: #### M G ####[facility] [place], [place] [id number] MANUAL DIFFERENTIALon 2020 % EOSINOPHIL 0.0 % Normal 0.0 - 6.0 [facility] Comment on above: Performed By: #### P R12 #### [facility] [address] [place] [address] % METAMYELOCYTE 3.0 % Normal 0.0 - 0.0 [facility] Comment on above: Performed By: #### P R12 #### [facility] [address] [place] [address] % MYELOCYTE 2.0 % Normal 0.0 - 0.0 [facility] Comment on above: Performed By: #### P R12 #### [facility] [address] [place] [address] % SEG NEUTROPHIL 81.0 % Normal 40.0 - 80.0 [facility] Comment on above: Result Comment: Perc ent differential counts (%) should be interpreted in the context of the absolute cell counts (cells/L). Performed By: #### P R12 #### [facility] [address] [place] [address] ANC 14.86 x10E9/L High 1.60 - 5.50 [facility] Comment on above: Performed By: #### P R12 #### [facility] [address] [place] [address] Band form neutrophils/100 WBC (Bld) 2.0 % Normal 0.0 - 5.0 [facility] Comment on above: Performed By: #### P R12 #### [facility] [address] [place] [address] BAND NEUTROPHIL 0.36 x10E9/L Normal 0.00 - 0.50 [facility] Comment on above: Performed By: #### P R12 #### [facility] [address] [place] [address] BASOPHIL 0.00 x10E9/L Normal 0.00 - 0.10 [facility] Comment on above: Performed By: #### P R12 #### [facility] [address] [place] [address] Basophils/100 WBC (Bld) 0.0 % Normal [facility] Comment on above: Performed By: #### P R12 #### [facility] [address] [place] [address] EOSINOPHIL 0.00 x10E9/L Normal 0.00 - 0.40 [facility] Comment on above: Performed By: #### P R12 #### [facility] [address] [place] [address] LYMPHOCYTE 1.07 x10E9/L Normal 0.80 - 3.00 [facility] Comment on above: Performed By: #### P R12 #### [facility] [address] [place] [address] Lymphocytes/100 WBC (Bld) 6.0 % Normal 13.0 - 44.0 [facility] Comment on above: Performed By: #### P R12 #### [facility] [address] [place] [address] Metamyelocytes/100 WBC (Bld) 0.54 x10E9/L Abnormal 0.00 - 0.00 [facility] Comment on above: Performed By: #### P R12 #### [facility] [address] [place] [address] MONOCYTE 1.07 x10E9/L High 0.05 - 0.80 [facility] Comment on above: Performed By: #### P R12 #### [facility] [address] [place] [address] Monocytes/100 WBC (Bld) 6.0 % Normal 2.0 - 10.0 [facility] Comment on above: Performed By: #### P R12 #### [facility] [address] [place] [address] MYELOCYTE 0.36 x10E9/L Abnormal 0.00 - 0.00 [facility] Comment on above: Performed By: #### P R12 #### [facility] [address] [place] [address] SEG NEUTROPHIL 14.50 x10E9/L High 1.60 - 5.00 [facility] Comment on above: Performed By: #### P R12 #### [facility] [address] [place] [address] OSMOLALITY, SERUMon 05-03-19 21 OSMOLALITY, SERUM 322 mOsm/kg H2O High 280 - 300 [facility] Comment on above: Performed By: #### O SMOL ####[facility] [place], [place] [id number] Order Reconciliationon 05-02 Order Reconciliation Page 1 [...] 1000 milligram(s) orally every 6 hours, As Skwyrh63-Okm-9542 UNKNOWN UNKNOWN Reviewed and Held atorvastatin 10 mg oral tablet 1 tab(s) orally once a day (at bedtime) [id number] UNKNOWN Atorvastatin Tablet (LIPITOR)DOSE = 10 mg Oral Dailyatorvastatin 10 mg oral tablet continued as the inpatient order Atorvastatin Calmoseptine 0.44%-20.6% topical ointment Apply topically to affected area 2 times a day, As [id number]- 2021 PM Menthol 0.44% - Zinc Oxide 20.625% Topical Ointment (CALMOSEPTINE)DOSE = 1 application(s) Topical 3 Times a DayApply to SacrumCalmoseptine 0.44%-20.6% topical ointment continued as the inpatient order Menthol 0.44% - Zinc Oxide 20.625% Topical cholecalciferol 1000 intl units (25 mcg) oral tablet 1 tab(s) orally once a day [id number] UNKNOWN Reviewed and Held cyanocobalamin 1000 mcg oral tablet 1 tab(s) orally once a hmr99-Mbr-3200 UNKNOWN UNKNOWN Reviewed and Held dupilumab 300 milligram(s) subcutaneous every 2 hshyy92-[id number]-[id number] UNKNOWN Reviewed and Held Florinef Acetate 0.1 mg oral tablet 1 tab(s) orally once a qyn42-Rqi-5694 UNKNOWN UNKNOWN Fludrocortisone Tablet (FLORINEF)DOSE = 0.1 mg Oral Daily Florinef Acetate 0.1 mg oral tablet continued as the inpatient order Fludrocortisone fluticasone nasal 1 spray(s) nasal once a day (at bedtime)02-[id number]-[id number] WN UNKNOWN Fluticasone 50 microgram/ Nasal Inhalation (FLONASE)DOSE = 1 spray(s) Each Nostril DailyNotes from Pharmacy: RCRAfluticasone nasal continued as the inpatient order Fluticasone 50 microgram/ Nasal Inhalation hydrocortisone 10 mg oral tablet 1 tab(s) orally once a gno38-[id number] UNKNOWN Hydrocortisone Tablet (CORTEF)DOSE = 10 mg Oral Dailyhydrocortisone 10 mg oral tablet continued as the inpatient order Hydrocortisone hydrocortisone 20 mg oral tablet 1 tab(s) orally once a [id number] UNKNOWN Hydrocortisone Tablet (CORTEF)DOSE = 20 mg Oral Daily 1800 hydrocortisone 20 mg oral tablet continued as the inpatient order Hydrocortisone lactobacillus acidophilus-lactobacillu s casei oral delayed release capsule 1 cap(s) orally once a [id number] UNKNOWN Reviewed and Held nitroglycerin 0.4 mg sublingual tablet 1 tab(s) sublingual every 5 minutes, As Klifef62-[id number] UNKNOWN Nitroglycerin SubLingual Tablet (NITROSTAT)DOSE = 0.4 mg SubLingual Every 5 Minutes, PRN Anginanitroglycerin 0.4 mg sublingual tablet continued as the inpatient order Nitroglycerin SubLingual warfarin 2.5 mg oral tablet 1 tab(s) orally once a hnn90-[id number]-358 1 PM Blood in Urine, Monitor for [...] oral tablet 1 tab(s) orally once a uqo85-[id number]-013 1 PM Bleeding, Monitor for Call physician [...] oral tablet 1 tab(s) orally once a rez88-[id number]-571 1 PM Nursing to ensure Your Guide [...] oral tablet 1 tab(s) orally once a lnv14-[id number]-[id number] 1 PM Communication Order INR Goal 2 [...] oral tablet 1 tab(s) orally once a ssp89-[id number] 1 PM Warfarin Tablet (COUMADIN)DOSE = 2.5 [...] mL Run at: 100 mL/hr IntraVenous Normal [facility] PARATHYROID HORMONE,INTACTon 05-02-2020 PARATHYROID HORMONE,INTACT Canceled Normal [facility] Comment on above: Order Comment: TEST PARATHYROID HORMONE,INTACT WAS CANCELLED, 05/02/2020 12:20 added per RN05/02/2020 12:20. Performed By: #### P TH ####[address] [id number] PHOSPHORUSon 05-02-2020 Phosphate [Mass/Vol] 6.4 mg/dL High 2.5 - 4.9 [facility] Comment on above: Result Comment: The performance characteristics of phosphorus testing in heparinized plasma have been validated by the individual laboratory site where testing is performed. Testing on heparinized plasma is not approved by the FDA; however, such approval is not necessary. Performed By: #### C MP #### [address] [id number] PREALBUMINon 05-02-2020 Prealbumin [Mass/Vol] 28.0 mg/dL Normal 18.0 - 40.0 [facility] Comment on above: Performed By: #### C BC #### [address] [id number] PROTEIN ELECTROPHORESIS + IM MUNOFIXATION, SERUMon 05-02-2020 Protein [Mass/Vol] 5.5 g/dL Low 6.4 - 8.2 [facility] Comment on above: Performed By: #### I FE2 ####[id number] [place] [address] Performed By: #### C MP #### [address] [id number] PROTEIN ELECTROPHORESIS,SERU 05-02-2020 Albumin [Mass/Vol] Canceled Normal [facility] Comment on above: Order Comment: TEST PROTEIN ELECTROPHORESIS,SERUM WAS CANCELLED, 05/02/2020 12:20 added per RN 05/02/2020 12:20. Performed By: #### S PE2 #### [facility] [address] [place] [address] ALPHA 1 GLOBULIN Canceled Normal [facility] Comment on above: Order Comment: TEST PROTEIN ELECTROPHORESIS,SERUM WAS CANCELLED, 05/02/2020 12:20 added per RN 05/02/2020 12:20. Performed By: #### S PE2 #### [facility] [address] [place] [address] ALPHA 2 GLOBULIN Canceled Normal [facility] Comment on above: Order Comment: TEST PROTEIN ELECTROPHORESIS,SERUM WAS CANCELLED, 05/02/2020 12:20 added per RN 05/02/2020 12:20. Performed By: #### S PE2 #### [facility] [address] [place] [address] BETA GLOBULIN Canceled Normal [facility] Comment on above: Order Comment: TEST PROTEIN ELECTROPHORESIS,SERUM WAS CANCELLED, 05/02/2020 12:20 added per RN 05/02/2020 12:20. Performed By: #### S PE2 #### [facility] [address] [place] [address] GAMMA GLOBULIN Canceled Normal [facility] Comment on above: Order Comment: TEST PROTEIN ELECTROPHORESIS,SERUM WAS CANCELLED, 05/02/2020 12:20 added per RN 05/02/2020 12:20. Performed By: #### S PE2 #### [facility] [address] [place] [address] INTERPRETATION Canceled Normal [facility] Comment on above: Order Comment: TEST PROTEIN ELECTROPHORESIS,SERUM WAS CANCELLED, 05/02/2020 12:20 added per RN 05/02/2020 12:20. Performed By: #### S PE2 #### [facility] [address] [place] [address] Protein [Mass/Vol] Canceled Normal [facility] Comment on above: Order Comment: TEST PROTEIN ELECTROPHORESIS,SERUM WAS CANCELLED, 05/02/2020 12:20 added per RN 05/02/2020 12:20. Performed By: #### S PE2 #### [facility] [address] [place] [address] Order Comment: TEST PTH RELATED PROTEIN WAS CANCELLED, 05/02/2020 12:20 added per RN05/02/2020 12:20. Performed By: #### P R12 #### [facility] [address] [place] [id number] Patient Profile - Adult v2on 05-02-2020 Patient Profile - Adult v2 Profile: Initial Info: How to be AddressedLinda Spoken Language PreferredEnglish Source of Informationhealth record; patient Stated Reason for Admissionpatient states I fell. Primary Contact Name and NumberSouleymane Lopez - [phone] (daughter) Other Contact Names and NumbersWilman Peralta - [phone] - Next of Kin - Patients Patient Belongingsnone Arrived Fromspital Medications Brought to Hospitalno Are you currently using the Personal Electronic Health Record or MYCAREno Wants Family/Rep Notified of Admissionyes, primary contact Notify PCPnotify PCP Informed of Patient Visiting Rightsyes General Health: Weight in kg74.5 kilogram(s) Weight in xsa439.2 pound(s) Weight Methodactual (measured) Scale Typebed Height [...] Lives Withspouse Living Arrangementshouse Services [facility] Anticipated Transition Tomccormick Significant IndicatorsComplete Information Review: Allergies, Home Meds and Significant Events have been Reviewed and Verified with Patient/Familyyes ALLERGY, INTOLERANCE, ADVERSE EVENT: Allergies: ciprofloxacin: Drug, Rash, Active penicillins: Drug Category, Rash, Active Electronic Signatures: Nehemias Mercado (RN) (Signed 02-May-2020 01:28) Authored: Initial Info, General Health, RSP Based Care, Substance, Health Mgmt, Relationship/Environ, Additional Information Last Updated: 02-May-2020 01:28 by Nehemias Mercado (RN) Normal [facility] RED CELL MORPHOLOGYon 2020 RBC morphology finding Nom (Bld) SEE COMMENT Normal [facility] Comment on above: Result Comment: NO S IGNIFICANT RBC ABNORMALITIES SEEN ON SMEAR REVIEW. Performed By: #### C A #### [facility] [address] [place], [place] [id number] RETICULOCYTESon 05-02-2020 RETIC # 0.054 x10E12/L Normal 0.017 - 0.110 [facility] Comment on above: Performed By: #### R ETIC ####[facility] [place], [place] [id number] RETIC % 1.4 % Normal 0.5 - 2.0 [facility] Comment on above: Performed By: #### R ETIC ####[facility] [place], [place] [id number] RETIC-HB 37 pg Normal 28 - 38 [facility] Comment on above: Performed By: #### R ETIC ####[facility] [place], [place] [id number] SPE PATH REVIEWon 05-02-2020 PATH REVIEW-SPE Canceled Normal [facility] Comment on above: Order Comment: TEST SPE PATH REVIEW WAS CANCELLED, 05/02/2020 12:20 added per RN 112:20. Result Comment: By h er/his signature above, the Pathologist listed as making the final interpretation certifies that she/he has personally reviewed this case. Performed By: #### P R12 #### [facility] [address] [place] [address] THYROXINE,FREEon 05-02-2020 THYROXINE,FREE 1.30 ng/dL High 0.61 - 1.12 [facility] Comment on above: Result Comment: Thyr oxine Free testing is performed using different testing methodology at [facility] than at other [facility]. Direct result comparisons should only be [...] blood draw. Performed By: #### T 4FRE ####[place] [address] [place], [place] [id number] TSHon 05-02-2020 TSH Qn 0.69 m[IU]/L Normal 0.44 - 3.98 [facility] Comment on above: Result Comment: TSH testing is performed using different testing methodology at [facility] than at other [facility]. Direct result comparisons should only be made within the same method. Performed By: #### C BC #### [facility] [address] [place], [place] [id number] URIC ACIDon 05-02-2020 Urate [Mass/Vol] 10.4 mg/dL High 2.3 - 6.7 [facility] Comment on above: Result Comment: Nadia puncture immediately after or during the administration of Metamizole may lead to falsely low results. Testing should be performed immediately prior to Metamizole dosing. Performed By: #### U SANDI ####[address] [id number] US RENAL BILATon 05-02-2020 US RENAL BILAT Patient Name: LINDA PERALTA STUDY: US RENAL BILAT; 05/02/2020 12:38 pm INDICATION: ANGELA. COMPARISON: None. ACCESSION NUMBER(S): [id number] ORDERING CLINICIAN: NANI STANLEY TECHNIQUE: Multiple images [...] Electronically signed by: ALBERTO HARRIS MD Normal [facility] VITAMIN D 1,25-DIHYDROXYon 0 05-02-2020 VITAMIN D 1,25-DIHYDROXY Canceled Normal [facility] Comment on above: Order Comment: TEST VITAMIN D 1,25-DIHYDROXY WAS CANCELLED, 05/02/2020 12:20 added per RN05/02/2020 12:20. Performed By: #### V TDDI ####[address] [place] [address] VITAMIN D, 25-HYDROXYon 04-20 VITAMIN D, 25-HYDROXY 33 ng/mL Normal [facility] Comment on above: Result Comment: . DEFICIENCY: < 20 NG/ML INSUFFICIENCY: 20-29 NG/ML SUFFICIENCY: 30-100 NG/ML THIS ASSAY ACCURATELY QUANTIFIES THE SUM OF VITAMIN D3, 25-HYDROXY AND VIT D2,25-HYDROXY. Performed By: #### C #### [address] [id number] Culture, urine Bacteria identified Cx Nom (U) Positive [facility] Work Phone: Bacteria identified Cx Nom (U) Escherichia coli [facility] Work Phone: Laboratory - Microbiology an d Antimicrobial susceptibility Bacteria identified Cx Nom (Bld) No growth in 5 days. [facility] Work Phone: Vital Signs Date Time Vital Sign Value Performing Clinician Facility 11-28-2024 11:17-0400 Body height 157.5 cm Basim Bang CNP Work Phone: [facility] 11-28-2024 11:17-0400 Body mass index (BMI) [Ratio] 27.65 kg/m2 Basim Bang CNP Work Phone: [facility] 11-28-2024 11:17-0400 Body weight 68.58 kg Basim Bang CNP Work Phone: [facility] 11-28-2024 11:17-0400 Diastolic blood pressure 92 mm[Hg] Basim Bang CNP Work Phone: [facility] 11-28-2024 11:17-0400 Heart rate 92 /min Basim Bang CNP Work Phone: [facility] 11-28-2024 11:17-0400 SaO2% (BldA) [Mass fraction] 99 % Basim Bang CNP Work Phone: [facility] 11-28-2024 11:17-0400 Systolic blood pressure 150 mm[Hg] Basim Bang CNP Work Phone: [facility] 11-28-2024 10:00-0400 Body mass index (BMI) [Ratio] 27.98 kg/m2 Dylon Gupta MANAGER [employer] Work Phone: [facility] 11-28-2024 10:00-0400 Body weight 69.4 kg Dylon Gupta APRN - [employer] Work Phone: [facility] 11-14-2024 09:18-0400 Diastolic blood pressure 98 mm[Hg] Dr. Amos Floyd MD Work Phone: [facility] 11-14-2024 09:18-0400 Systolic blood pressure 139 mm[Hg] Dr. Amos Floyd MD Work Phone: [facility] 11-14-2024 09:02-0400 Body height 157.[address] Amos Floyd MD Work Phone: [facility] 11-14-2024 09:02-0400 Body mass index (BMI) [Ratio] 27.2 kg/m2 Dr. Amos Floyd MD Work Phone: [facility] 11-14-2024 09:02-0400 Body weight 67.[address] Amos Floyd MD Work Phone: [facility] 11-14-2024 09:02-0400 Heart rate 81 /min Dr. Amos Floyd MD Work Phone: [facility] 11-14-2024 09:02-0400 Respiratory rate 16 /min Dr. Amos Floyd MD Work Phone: [facility] 10-31-2024 10:49-0400 Body height 157.5 cm Basim Bang [employer] Work Phone: [facility] 10-31-2024 10:49-0400 Body mass index (BMI) [Ratio] 27.98 kg/m2 Basim Joel APRN - [employer] Work Phone: [facility] 10-31-2024 10:49-0400 Body weight 69.4 kg Basim Wisam MANAGER [employer] Work Phone: [facility] 10-31-2024 10:49-0400 Diastolic blood pressure 86 mm[Hg] Basimmoe Joel MANAGER [employer] Work Phone: [facility] 10-31-2024 10:49-0400 Heart rate 96 /min Basim Wisam MANAGER [employer] Work Phone: [facility] 10-31-2024 10:49-0400 SaO2% (BldA) [Mass fraction] 98 % Basim Wisam MANAGER [employer] Work Phone: [facility] 10-31-2024 10:49-0400 Systolic blood pressure 132 mm[Hg] Basim Joel MANAGER [employer] Work Phone: [facility] 10-29-2024 10:41-0400 Body mass index (BMI) [Ratio] 28.06 kg/m2 Amos Floyd MD Work Phone: [facility] 10-29-2024 10:41-0400 Body temperature 97.5 [degF] Amos Floyd MD Work Phone: [facility] 10-29-2024 10:41-0400 Body weight 69.6 kg Amos Floyd MD Work Phone: [facility] 10-29-2024 10:41-0400 Diastolic blood pressure 72 mm[Hg] Amos Floyd MD Work Phone: [facility] 10-29-2024 10:41-0400 Heart rate 60 /min Amos Floyd MD Work Phone: [facility] 10-29-2024 10:41-0400 Respiratory rate 20 /min Amos Floyd MD Work Phone: [facility] 10-29-2024 10:41-0400 Systolic blood pressure 112 mm[Hg] Amos Floyd MD Work Phone: [facility] 10-24-2024 11:00-0400 Diastolic blood pressure 116 mm[Hg] Memo Canas MD Work Phone: [facility] 10-24-2024 11:00-0400 Heart rate 93 /min Memo Canas MD Work Phone: [facility] 10-24-2024 11:00-0400 Respiratory rate 27 /min Memo Canas MD Work Phone: [facility] 10-24-2024 11:00-0400 SaO2% (BldA) [Mass fraction] 96 % Memo Canas MD Work Phone: [facility] 10-24-2024 11:00-0400 Systolic blood pressure 134 mm[Hg] Memo Canas MD Work Phone: [facility] 10-24-2024 09:00-0400 Body temperature 95.5 [degF] Memo Canas MD Work Phone: [facility] 10-24-2024 08:22-0400 Body height 157.5 cm Memo Canas MD Work Phone: [facility] 10-24-2024 08:22-0400 Body mass index (BMI) [Ratio] 26.7 kg/m2 Memo Canas MD Work Phone: [facility] 10-24-2024 08:22-0400 Body weight 66.22 kg Memo Canas MD Work Phone: [facility] 09-19-2024 14:57-0400 Body height 157.5 cm Basim Bang CNP Work Phone: [facility] 09-19-2024 14:57-0400 Body mass index (BMI) [Ratio] 29.26 kg/m2 Basim Bang CNP Work Phone: [facility] 09-19-2024 14:57-0400 Body weight 72.58 kg Basim Bang CNP Work Phone: [facility] 09-19-2024 14:57-0400 Diastolic blood pressure 84 mm[Hg] Basim Joel MANAGER [employer] Work Phone: [facility] 09-19-2024 14:57-0400 Heart rate 90 /min Basim Joel MANAGER [employer] Work Phone: [facility] 09-19-2024 14:57-0400 SaO2% (BldA) [Mass fraction] 100 % Basim Joel MANAGER [employer] Work Phone: [facility] 09-19-2024 14:57-0400 Systolic blood pressure 115 mm[Hg] Basim Joel MANAGER [employer] Work Phone: [facility] 09-19-2024 10:53-0400 Body height 157.5 cm Arelis Dusz MANAGER TR[employer] Work Phone: [facility] 09-19-2024 10:53-0400 Body mass index (BMI) [Ratio] 28.35 kg/m2 Arelis Dusz MANAGER [employer] Work Phone: [facility] 09-19-2024 10:53-0400 Body weight 70.31 kg Arelis Dusz MANAGER [employer] Work Phone: [facility] 09-19-2024 10:53-0400 Diastolic blood pressure 76 mm[Hg] Arelis Dusz MANAGER [employer] Work Phone: [facility] 09-19-2024 10:53-0400 Systolic blood pressure 124 mm[Hg] Arelis Dusz MANAGER [employer] Work Phone: [facility] 09-03-2024 15:49-0400 Body height 157.5 cm Baldo De La Cruz MD Work Phone: [facility] 09-03-2024 15:49-0400 Body mass index (BMI) [Ratio] 28.55 kg/m2 Baldo De La Cruz MD Work Phone: [facility] 09-03-2024 15:49-0400 Body weight 70.8 kg Baldo De La Cruz MD Work Phone: [facility] 09-03-2024 15:49-0400 Diastolic blood pressure 86 mm[Hg] Baldo De La Cruz MD Work Phone: [facility] 09-03-2024 15:49-0400 Heart rate 98 /min Baldo De La Cruz MD Work Phone: [facility] 09-03-2024 15:49-0400 Systolic blood pressure 124 mm[Hg] Baldo De La Cruz MD Work Phone: [facility] 09-03-2024 15:29-0400 Body height 157.5 cm Memo Canas MD Work Phone: [facility] 09-03-2024 15:29-0400 Body mass index (BMI) [Ratio] 28.53 kg/m2 Memo Canas MD Work Phone: [facility] 09-03-2024 15:29-0400 Body weight 70.76 kg Memo Canas MD Work Phone: [facility] 09-03-2024 15:29-0400 Diastolic blood pressure 86 mm[Hg] Memo Canas MD Work Phone: [facility] 09-03-2024 15:29-0400 Heart rate 98 /min Memo Canas MD Work Phone: [facility] 09-03-2024 15:29-0400 Systolic blood pressure 124 mm[Hg] Memo Canas MD Work Phone: [facility] 08-29-2024 10:47-0400 Diastolic blood pressure 83 mm[Hg] Amos Floyd MD Work Phone: [facility] 08-29-2024 10:47-0400 Heart rate 71 /min Amos Floyd MD Work Phone: [facility] 08-29-2024 10:47-0400 Systolic blood pressure 135 mm[Hg] Amos Floyd MD Work Phone: [facility] 08-29-2024 10:36-0400 Body mass index (BMI) [Ratio] 28.79 kg/m2 Amos Floyd MD Work Phone: [facility] 08-29-2024 10:36-0400 Body weight 71.4 kg Amos Floyd MD Work Phone: [facility] 08-29-2024 10:36-0400 Respiratory rate 20 /min Amos Floyd MD Work Phone: [facility] 08-14-2024 11:28-0400 Body mass index (BMI) [Ratio] 28.71 kg/m2 Amos Floyd MD Work Phone: [facility] 08-14-2024 11:28-0400 Body temperature 98.2 [degF] Amos Floyd MD Work Phone: [facility] 08-14-2024 11:28-0400 Body weight 71.2 kg Amos Floyd MD Work Phone: [facility] 08-14-2024 11:28-0400 Diastolic blood pressure 64 mm[Hg] Amos Floyd MD Work Phone: [facility] 08-14-2024 11:28-0400 Heart rate 88 /min Amos Floyd MD Work Phone: [facility] 08-14-2024 11:28-0400 Respiratory rate 18 /min Amos Floyd MD Work Phone: [facility] 08-14-2024 11:28-0400 Systolic blood pressure 98 mm[Hg] Amos Floyd MD Work Phone: [facility] 08-09-2024 15:03-0400 Body temperature 97.3 [degF] Dr. Amos Floyd MD Work Phone: [facility] 08-09-2024 15:03-0400 Diastolic blood pressure 73 mm[Hg] Dr. Amos Floyd MD Work Phone: [facility] 08-09-2024 15:03-0400 Heart rate 93 /min Dr. Amos Floyd MD Work Phone: [facility] 08-09-2024 15:03-0400 Respiratory rate 18 /min Dr. Amos Floyd MD Work Phone: 2(751)592-850674 [place] [address] 08-09-2024 15:03-0400 SaO2% (BldA) [Mass fraction] 96 % Dr. Amos Floyd MD Work Phone: 5(323)137-434074 [place] [address] 08-09-2024 15:03-0400 Systolic blood pressure 112 mm[Hg] Dr. Amos Floyd MD Work Phone: 0(104)315-907574 [place] [address] 08-09-2024 05:31-0400 Body mass index (BMI) [Ratio] 29.5 kg/m2 Dr. Amos Floyd MD Work Phone: 3(546)393-533774 [place] [address] 08-09-2024 05:31-0400 Body weight 72.[address] Amos Floyd MD Work Phone: 6(378)279-457674 [place] [address] 08-08-2024 10:56-0400 Body height 157.[address] Amos Floyd MD Work Phone: 8(348)988-539274 [place] [address] 08-07-2024 21:30-0400 Diastolic blood pressure 88 mm[Hg] Dr. Amos Floyd MD Work Phone: 7(670)631-749674 [place] [address] 08-07-2024 21:30-0400 Heart rate 101 /min Dr. Amos Floyd MD Work Phone: 3(306)918-477174 [place] [address] 08-07-2024 21:30-0400 Respiratory rate 23 /min Dr. Amos Floyd MD Work Phone: 3(900)366-972774 [place] [address] 08-07-2024 21:30-0400 SaO2% (BldA) [Mass fraction] 98 % Dr. Amos Floyd MD Work Phone: 6(256)429-218174 [place] [address] 08-07-2024 21:30-0400 Systolic blood pressure 123 mm[Hg] Dr. Amos Floyd MD Work Phone: 5(709)829-749074 [place] [address] 08-07-2024 21:13-0400 Body temperature 98.4 [degF] Dr. Amos Floyd MD Work Phone: [facility] 08-07-2024 16:00-0400 Body mass index (BMI) [Ratio] 27.3 kg/m2 Dr. Amos Floyd MD Work Phone: [facility] 08-07-2024 16:00-0400 Body weight [address] Amos Floyd MD Work Phone: [facility] 08-07-2024 15:49-0400 Body height 157.[address] Amos Floyd MD Work Phone: 0(302)385-103688 [place] [address] 08-05-2024 07:22-0400 Body height 157.[address] Amso Floyd MD Work Phone: 4(421)551-924388 [place] [address] 08-05-2024 07:22-0400 Body weight 66.[address] Amos Floyd MD Work Phone: [facility] 08-01-2024 16:17-0400 Body mass index (BMI) [Ratio] 26.6 kg/m2 Dr. Amos Floyd MD Work Phone: [facility] 07-24-2024 10:50-0400 Body mass index (BMI) [Ratio] 26.53 kg/m2 Amos Floyd MD Work Phone: [facility] 07-24-2024 10:50-0400 Body weight 65.8 kg Amos Floyd MD Work Phone: [facility] 07-24-2024 10:50-0400 Diastolic blood pressure 82 mm[Hg] Amos Floyd MD Work Phone: [facility] 07-24-2024 10:50-0400 Heart rate 80 /min Amos Floyd MD Work Phone: [facility] 07-24-2024 10:50-0400 Respiratory rate 20 /min Amos Floyd MD Work Phone: [facility] 07-24-2024 10:50-0400 Systolic blood pressure 126 mm[Hg] Amos Floyd MD Work Phone: [facility] 07-23-2024 06:19-0400 Body mass index (BMI) [Ratio] 26.6 kg/m2 Dr. Amos Floyd MD Work Phone: [facility] 07-23-2024 06:19-0400 Body weight 66.[address] Amos Floyd MD Work Phone: [facility] 07-23-2024 06:19-0400 Diastolic blood pressure 93 mm[Hg] Dr. Amos Floyd MD Work Phone: 0(388)661-967374 [place] [address] 07-23-2024 06:19-0400 Heart rate 98 /min Dr. Amos Floyd MD Work Phone: [facility] 07-23-2024 06:19-0400 Respiratory rate 18 /min Dr. Amos Floyd MD Work Phone: 3(629)748-518874 [place] [address] 07-23-2024 06:19-0400 SaO2% (BldA) [Mass fraction] 100 % Dr. Amos Floyd MD Work Phone: 0(835)964-190274 [place] [address] 07-23-2024 06:19-0400 Systolic blood pressure 142 mm[Hg] Dr. Amos Floyd MD Work Phone: [facility] 04-29-2024 08:22-0400 Body mass index (BMI) [Ratio] 26.5 kg/m2 Dr. Amos Floyd MD Work Phone: [facility] 04-29-2024 08:22-0400 Body weight 65.[address] Amos Floyd MD Work Phone: 3(654)079-944174 [place] [address] 04-29-2024 08:22-0400 Diastolic blood pressure 91 mm[Hg] Dr. Amos Floyd MD Work Phone: 1(557)710-816682 [address] 04-29-2024 08:22-0400 Heart rate 97 /min Dr. Amos Floyd MD Work Phone: 2(680)494-601088 [place] [address] 04-29-2024 08:22-0400 Respiratory rate 18 /min Dr. Amos Floyd MD Work Phone: [facility] 04-29-2024 08:22-0400 SaO2% (BldA) [Mass fraction] 94 % Dr. Amos Floyd MD Work Phone: [facility] 04-29-2024 08:22-0400 Systolic blood pressure 123 mm[Hg] Dr. Amos Floyd MD Work Phone: [facility] 01-23-2024 10:10-0500 Body height 157.5 cm Amos Floyd MD Work Phone: [facility] 01-23-2024 10:10-0500 Body mass index (BMI) [Ratio] 26.01 kg/m2 Amos Floyd MD Work Phone: [facility] 01-23-2024 10:10-0500 Body temperature 97.5 [degF] Amos Floyd MD Work Phone: [facility] 01-23-2024 10:10-0500 Body weight 64.5 kg Amos Floyd MD Work Phone: [facility] 01-23-2024 10:10-0500 Diastolic blood pressure 76 mm[Hg] Amos Floyd MD Work Phone: [facility] 01-23-2024 10:10-0500 Heart rate 88 /min Amos Floyd MD Work Phone: [facility] 01-23-2024 10:10-0500 Respiratory rate 16 /min Amos Floyd MD Work Phone: [facility] 01-23-2024 10:10-0500 Systolic blood pressure 128 mm[Hg] Amos Floyd MD Work Phone: [facility] 09-19-2023 11:00-0400 Diastolic blood pressure 87 mm[Hg] Kole El PT Work Phone: [facility] 09-19-2023 11:00-0400 Heart rate 90 /min Kole Sienna PT Work Phone: [facility] 09-19-2023 11:00-0400 Systolic blood pressure 131 mm[Hg] Kole Sienna PT Work Phone: [facility] 09-12-2023 11:00-0400 Diastolic blood pressure 81 mm[Hg] Kole Sienna PT Work Phone: [facility] 09-12-2023 11:00-0400 Heart rate 99 /min Kole Sienna PT Work Phone: [facility] 09-12-2023 11:00-0400 Systolic blood pressure 126 mm[Hg] Kole Sienna PT Work Phone: [facility] 09-08-2023 14:00-0400 Diastolic blood pressure 79 mm[Hg] Kole Sienna PT Work Phone: [facility] 09-08-2023 14:00-0400 Heart rate 98 /min Kole Sienna PT Work Phone: [facility] 09-08-2023 14:00-0400 Systolic blood pressure 115 mm[Hg] Kole Sienna PT Work Phone: [facility] 08-30-2023 14:00-0400 Diastolic blood pressure 79 mm[Hg] Kole Sienna PT Work Phone: [facility] 08-30-2023 14:00-0400 Heart rate 79 /min Kole Sienna PT Work Phone: [facility] 08-30-2023 14:00-0400 Systolic blood pressure 115 mm[Hg] Kole Sienna PT Work Phone: [facility] 08-21-2023 11:00-0400 Diastolic blood pressure 83 mm[Hg] Gisel Kaspakoba TRACK INSPECTOR Work Phone: [facility] 08-21-2023 11:00-0400 Heart rate 81 /min Gisel Kashuba TRACK INSPECTOR Work Phone: [facility] 08-21-2023 11:00-0400 Systolic blood pressure 118 mm[Hg] Gisel Juliohuba TRACK INSPECTOR Work Phone: [facility] 08-09-2023 09:00-0400 Diastolic blood pressure 87 mm[Hg] Koleberny MoralesSienna PT Work Phone: [facility] 08-09-2023 09:00-0400 Heart rate 78 /min Kole Sienna PT Work Phone: [facility] 08-09-2023 09:00-0400 Systolic blood pressure 139 mm[Hg] Kole Sienna PT Work Phone: [facility] 08-02-2023 09:00-0400 Diastolic blood pressure 100 mm[Hg] Kole Sienna PT Work Phone: [facility] Comment on above: Right when entering clinic upon sitting. 08-02-2023 09:00-0400 Heart rate 77 /min Kole Sienna PT Work Phone: [facility] 08-02-2023 09:00-0400 Systolic blood pressure 155 mm[Hg] Kole Sienna PT Work Phone: [facility] Comment on above: Right when entering clinic upon sitting. 07-19-2023 09:00-0400 Diastolic blood pressure 108 mm[Hg] Kole Sienna PT Work Phone: [facility] Comment on above: Resting. 07-19-2023 09:00-0400 Heart rate 85 /min Kole Sienna PT Work Phone: [facility] 07-19-2023 09:00-0400 Systolic blood pressure 164 mm[Hg] Kole Sienna PT Work Phone: [facility] Comment on above: Resting. 07-05-2023 09:00-0400 Diastolic blood pressure 115 mm[Hg] Kole Sienna PT Work Phone: [facility] Comment on above: Measured 3 times automatically and then once manually with measurements around the same. 07-05-2023 09:00-0400 Heart rate 92 /min Kole Sienna PT Work Phone: [facility] 07-05-2023 09:00-0400 Systolic blood pressure 170 mm[Hg] Kole Sienna PT Work Phone: [facility] Comment on above: Measured 3 times automatically and then once manually with measurements around the same. 06-30-2023 09:39-0400 Body mass index (BMI) [Ratio] 25.61 kg/m2 Amos Floyd MD Work Phone: [facility] 06-30-2023 09:39-0400 Body weight 63.5 kg Amos Floyd MD Work Phone: [facility] 06-30-2023 09:39-0400 Diastolic blood pressure 100 mm[Hg] Amos Floyd MD Work Phone: [facility] 06-30-2023 09:39-0400 Heart rate 78 /min Amos Floyd MD Work Phone: [facility] 06-30-2023 09:39-0400 Respiratory rate 16 /min Amos Floyd MD Work Phone: [facility] 06-30-2023 09:39-0400 Systolic blood pressure 164 mm[Hg] Amos Floyd MD Work Phone: [facility] 06-28-2023 11:00-0400 Diastolic blood pressure 96 mm[Hg] Kole Sienna PT Work Phone: [facility] Comment on above: At beginning of session. 06-28-2023 11:00-0400 Heart rate 85 /min Koleberny MoralesSienna PT Work Phone: [facility] 06-28-2023 11:00-0400 Systolic blood pressure 144 mm[Hg] Kole Sienna PT Work Phone: [facility] Comment on above: At beginning of session. 06-21-2023 13:00-0400 Diastolic blood pressure 99 mm[Hg] Kole Sienna PT Work Phone: [facility] 06-21-2023 13:00-0400 Heart rate 86 /min Koleberny MoralesSienna PT Work Phone: [facility] 06-21-2023 13:00-0400 Systolic blood pressure 150 mm[Hg] Kole El PT Work Phone: [facility] 06-14-2023 11:00-0400 Diastolic blood pressure 106 mm[Hg] Kole El PT Work Phone: [facility] Comment on above: Initial. 06-14-2023 11:00-0400 Heart rate 87 /min Kole El PT Work Phone: [facility] 06-14-2023 11:00-0400 SaO2% (BldA) [Mass fraction] 98 % Kole El PT Work Phone: [facility] 06-14-2023 11:00-0400 Systolic blood pressure 157 mm[Hg] Kole El PT Work Phone: [facility] Comment on above: Initial. 05-31-2023 15:33-0400 Diastolic blood pressure 77 mm[Hg] Dr. Amos Floyd Work Phone: [facility] 05-31-2023 15:33-0400 Heart rate 81 /min Dr. Amos Floyd Work Phone: [facility] 05-31-2023 15:33-0400 Systolic blood pressure 134 mm[Hg] Dr. Amos Floyd Work Phone: [facility] 05-31-2023 14:22-0400 Body height 157.[address] Amos Floyd Work Phone: [facility] 05-31-2023 14:22-0400 Body mass index (BMI) [Ratio] 25.6 kg/m2 Dr. Amos Floyd Work Phone: [facility] 05-31-2023 14:22-0400 Body temperature 97 [degF] Dr. Amos Floyd Work Phone: [facility] 05-31-2023 14:22-0400 Body weight 63.[address] Amos Floyd Work Phone: [facility] 05-31-2023 14:22-0400 Respiratory rate 14 /min Dr. Amos Floyd Work Phone: [facility] 05-31-2023 14:22-0400 SaO2% (BldA) [Mass fraction] 99 % Dr. Amos Floyd Work Phone: [facility] 05-31-2023 11:12-0400 Body temperature 97.11 [degF] Rocio Fide MANAGER TRACK[employer]DES[employer] ENG[employer] Work Phone: [facility] 05-31-2023 11:12-0400 Body weight 64.41 kg Rocio Fide MANAGER TRACK.DESIGN ENG[employer] Work Phone: [facility] 05-31-2023 11:12-0400 Diastolic blood pressure 71 mm[Hg] Rocio Fide MANAGER TRACK.DES[employer] Work Phone: [facility] 05-31-2023 11:12-0400 Heart rate 112 /min Rocio Fide MANAGER TRACK.DESIGN ENG[employer] Work Phone: [facility] 05-31-2023 11:12-0400 Respiratory rate 14 /min Rocio Fide MANAGER TRACK.DESIGN ENG[employer] Work Phone: [facility] 05-31-2023 11:12-0400 SaO2% (BldA) [Mass fraction] 97 % Rocio Fide MANAGER TRACK.DESIGN ENG[employer] Work Phone: [facility] 05-31-2023 11:12-0400 Systolic blood pressure 102 mm[Hg] Rocio Fide MANAGER TRACK.DES[employer] Work Phone: [facility] 05-26-2023 11:11-0400 Body temperature 97.7 [degF] Elisa Mcdonough MD Work Phone: [facility] 05-26-2023 11:11-0400 Diastolic blood pressure 72 mm[Hg] Elisa Mcdonough MD Work Phone: [facility] 05-26-2023 11:11-0400 Heart rate 92 /min Elisa Mcdonough MD Work Phone: [facility] 05-26-2023 11:11-0400 Respiratory rate 17 /min Elisa Mcdonough MD Work Phone: [facility] 05-26-2023 11:11-0400 SaO2% (BldA) [Mass fraction] 94 % Elisa Mcdonough MD Work Phone: [facility] 05-26-2023 11:11-0400 Systolic blood pressure 106 mm[Hg] Elisa Mcdonough MD Work Phone: [facility] 05-24-2023 01:41-0400 Body height 157.5 cm Elisa Mcdonough MD Work Phone: [facility] 05-24-2023 01:41-0400 Body mass index (BMI) [Ratio] 25.85 kg/m2 Elisa Mcdonough MD Work Phone: [facility] 05-24-2023 01:41-0400 Body weight 64.1 kg Elisa Mcdonough MD Work Phone: [facility] 05-24-2023 00:20-0400 Body temperature 97.4 [degF] Dr. Amos Floyd Work Phone: [facility] 05-24-2023 00:20-0400 Diastolic blood pressure 91 mm[Hg] Dr. Amos Floyd Work Phone: [facility] 05-24-2023 00:20-0400 Heart rate 81 /min Dr. Amos Floyd Work Phone: [facility] 05-24-2023 00:20-0400 Respiratory rate 15 /min Dr. Amos Floyd Work Phone: [facility] 05-24-2023 00:20-0400 SaO2% (BldA) [Mass fraction] 96 % Dr. Amos Floyd Work Phone: [facility] 05-24-2023 00:20-0400 Systolic blood pressure 138 mm[Hg] Dr. Amos Floyd Work Phone: [facility] 05-23-2023 20:02-0400 Body height 157.[address] Amos Floyd Work Phone: [facility] 05-23-2023 20:02-0400 Body mass index (BMI) [Ratio] 25.8 kg/m2 Dr. Amos Floyd Work Phone: [facility] 05-23-2023 20:02-0400 Body weight 64.[address] Amos Floyd Work Phone: [facility] 05-23-2023 12:18-0400 Body weight 63.5 kg Rocio Elizalde MANAGER TRACK.DESIGN ENG[employer] Work Phone: [facility] 05-23-2023 12:18-0400 Diastolic blood pressure 82 mm[Hg] Rocio VivasFide MANAGER TRACK.DES[employer] ENG[employer] Work Phone: [facility] 05-23-2023 12:18-0400 Heart rate 72 /min Rocio VivasFide MANAGER TRACK.DES[employer] Work Phone: [facility] 05-23-2023 12:18-0400 Respiratory rate 14 /min Rocio Elizalde MANAGER TRACK.DES[employer] ENG[employer] Work Phone: [facility] 05-23-2023 12:18-0400 SaO2% (BldA) [Mass fraction] 96 % Rocio VivasFide MANAGER TRACK.DES[employer] Work Phone: [facility] 05-23-2023 12:18-0400 Systolic blood pressure 106 mm[Hg] Rocio VivasFide MANAGER TRACK.DES[employer] Work Phone: [facility] 05-15-2023 22:30-0400 Body temperature 98.1 [degF] Dr. Amos Floyd Work Phone: [facility] 05-15-2023 22:30-0400 Diastolic blood pressure 86 mm[Hg] Dr. Amos Floyd Work Phone: [facility] 05-15-2023 22:30-0400 Heart rate 74 /min Dr. Amos Floyd Work Phone: 5(565)219-245374 [place] [address] 05-15-2023 22:30-0400 Respiratory rate 16 /min Dr. Amos Floyd Work Phone: 2(613)733-958574 [place] [address] 05-15-2023 22:30-0400 SaO2% (BldA) [Mass fraction] 98 % Dr. Amos Floyd Work Phone: 9(833)798-543774 [place] [address] 05-15-2023 22:30-0400 Systolic blood pressure 146 mm[Hg] Dr. Amos Floyd Work Phone: 2(761)203-821474 [place] [address] 05-15-2023 14:44-0400 Body height 157.[address] Amos Floyd Work Phone: 7(431)395-536674 [place] [address] 05-15-2023 14:44-0400 Body mass index (BMI) [Ratio] 26 kg/m2 Dr. Amos Floyd Work Phone: 6(033)422-890174 [place] [address] 05-15-2023 14:44-0400 Body weight 64.[address] Amos Floyd Work Phone: 5(433)262-632874 [place] [address] 03-03-2023 08:55-0500 Body height 157.[address] Amos Floyd Work Phone: 1(962)971-502874 [place] [address] 03-03-2023 08:55-0500 Body mass index (BMI) [Ratio] 26.3 kg/m2 Dr. Amos Floyd Work Phone: 8(754)001-347574 [place] [address] 03-03-2023 08:55-0500 Body weight 65.[address] Amos Floyd Work Phone: 4(720)270-227274 [place] [address] 03-03-2023 08:55-0500 Diastolic blood pressure 76 mm[Hg] Dr. Amos Floyd Work Phone: 6(458)564-528774 [place] [address] 03-03-2023 08:55-0500 Heart rate 86 /min Dr. Amos Floyd Work Phone: 9(233)457-293074 [place] [address] 03-03-2023 08:55-0500 Respiratory rate 18 /min Dr. Amos Floyd Work Phone: [facility] 03-03-2023 08:55-0500 SaO2% (BldA) [Mass fraction] 99 % Dr. Amos Floyd Work Phone: [facility] 03-03-2023 08:55-0500 Systolic blood pressure 115 mm[Hg] Dr. Amos Floyd Work Phone: [facility] 01-19-2023 12:57-0500 Body height 159 cm Amos Floyd MD Work Phone: [facility] 01-19-2023 12:57-0500 Body weight 64.41 kg Amos Floyd MD Work Phone: [facility] 01-19-2023 12:57-0500 Diastolic blood pressure 66 mm[Hg] Amos Floyd MD Work Phone: [facility] 01-19-2023 12:57-0500 Heart rate 88 /min Amos Floyd MD Work Phone: [facility] 01-19-2023 12:57-0500 Respiratory rate 16 /min Amos Floyd MD Work Phone: [facility] 01-19-2023 12:57-0500 Systolic blood pressure 110 mm[Hg] Amos Floyd MD Work Phone: [facility] 11-25-2022 13:20-0400 Body height 157.[address] Amos Floyd Work Phone: [facility] 11-25-2022 13:20-0400 Body temperature 97.4 [degF] Dr. Amos Floyd Work Phone: [facility] 11-25-2022 13:20-0400 Diastolic blood pressure 91 mm[Hg] Dr. Amos Floyd Work Phone: [facility] 11-25-2022 13:20-0400 Heart rate 75 /min Dr. Amos Floyd Work Phone: 2(315)784-124074 [place] [address] 11-25-2022 13:20-0400 Respiratory rate 16 /min Dr. Amos Floyd Work Phone: 7(941)861-466874 [place] [address] 11-25-2022 13:20-0400 SaO2% (BldA) [Mass fraction] 99 % Dr. Amos Floyd Work Phone: 1(100)572-157974 [place] [address] 11-25-2022 13:20-0400 Systolic blood pressure 131 mm[Hg] Dr. Amos Floyd Work Phone: 3(745)385-075874 [place] [address] 11-24-2022 13:49-0400 Body mass index (BMI) [Ratio] 26.2 kg/m2 Dr. Amos Floyd Work Phone: 3(334)616-347374 [place] [address] 11-24-2022 13:49-0400 Body temperature 97.6 [degF] Dr. Amos Floyd Work Phone: 2(248)085-024574 [place] [address] 11-24-2022 13:49-0400 Body weight 64.[address] Amos Floyd Work Phone: 2(068)491-955074 [place] [address] 11-24-2022 13:49-0400 Diastolic blood pressure 74 mm[Hg] Dr. Amos Floyd Work Phone: 9(261)528-548374 [place] [address] 11-24-2022 13:49-0400 Heart rate 70 /min Dr. Amos Floyd Work Phone: 9(745)824-105474 [place] [address] 11-24-2022 13:49-0400 Respiratory rate 16 /min Dr. Amos Floyd Work Phone: 7(714)270-269274 [place] [address] 11-24-2022 13:49-0400 SaO2% (BldA) [Mass fraction] 97 % Dr. Amos Floyd Work Phone: 9(576)988-400374 [place] [address] 11-24-2022 13:49-0400 Systolic blood pressure 112 mm[Hg] Dr. Amos Floyd Work Phone: 2(347)290-056474 [place] [address] 11-08-2022 10:48-0400 Body temperature 97.5 [degF] Jacinda Enriquez MANAGER TRACK.DESIGN ENG[employer] Work Phone: [facility] 11-08-2022 10:48-0400 Body weight 63.32 kg Jacinda Enriquez MANAGER TRACK.DESIGN ENG[employer] Work Phone: [facility] 11-08-2022 10:48-0400 Diastolic blood pressure 86 mm[Hg] Jacinda Enriquez MANAGER TRACK.DESIGN ENG[employer] Work Phone: [facility] 11-08-2022 10:48-0400 Heart rate 78 /min Jacinda Enriquez MANAGER TRACK.DESIGN ENG[employer] Work Phone: [facility] 11-08-2022 10:48-0400 Respiratory rate 20 /min Jacinda Enriquez MANAGER TRACK.DESIGN ENG[employer] Work Phone: [facility] 11-08-2022 10:48-0400 SaO2% (BldA) [Mass fraction] 98 % Jacinda Enriquez MANAGER TRACK.DESIGN ENG[employer] Work Phone: [facility] 11-08-2022 10:48-0400 Systolic blood pressure 128 mm[Hg] Jacinda Enriquez MANAGER TRACK.DESIGN ENG[employer] Work Phone: [facility] 08-04-2022 13:18-0400 Body height 157.[address] Amos Floyd Work Phone: [facility] 08-04-2022 13:18-0400 Body mass index (BMI) [Ratio] 26.2 kg/m2 Dr. Amos Floyd Work Phone: [facility] 08-04-2022 13:18-0400 Body weight 64.[address] Amos Floyd Work Phone: [facility] 08-04-2022 13:18-0400 Diastolic blood pressure 82 mm[Hg] Dr. Amos Floyd Work Phone: [facility] 08-04-2022 13:18-0400 Heart rate 79 /min Dr. Amos Floyd Work Phone: [facility] 08-04-2022 13:18-0400 Respiratory rate 18 /min Dr. Amos Floyd Work Phone: [facility] 08-04-2022 13:18-0400 SaO2% (BldA) [Mass fraction] 98 % Dr. Amos Floyd Work Phone: [facility] 08-04-2022 13:18-0400 Systolic blood pressure 122 mm[Hg] Dr. Amos Floyd Work Phone: [facility] 07-20-2022 10:17-0400 Diastolic blood pressure 66 mm[Hg] Rocio Older MANAGER TRACK.DESIGN [employer] Work Phone: [facility] 07-20-2022 10:17-0400 Systolic blood pressure 102 mm[Hg] Rocio Older MANAGER TRACK.DESIGN ENG[employer] Work Phone: [facility] 07-20-2022 10:01-0400 Body weight 63.05 kg Rocio Older MANAGER TRACK.DESIGN [employer] Work Phone: [facility] 07-20-2022 10:01-0400 Heart rate 96 /min Rocio Older MANAGER TRACK.DESIGN [employer] Work Phone: [facility] 07-20-2022 10:01-0400 Respiratory rate 16 /min Rocio Older MANAGER TRACK.DESIGN ENG[employer] Work Phone: [facility] 05-27-2022 12:58-0400 Body height 157.[address] [facility] [facility] 05-27-2022 12:58-0400 Body temperature 96.4 [degF] Dr. Amos Floyd Work Phone: [facility] 05-27-2022 12:58-0400 Diastolic blood pressure 93 mm[Hg] Dr. Amos Floyd Work Phone: [facility] 05-27-2022 12:58-0400 Heart rate 78 /min Dr. Amos Floyd Work Phone: [facility] 05-27-2022 12:58-0400 Respiratory rate 16 /min Dr. Amos Floyd Work Phone: 9(912)703-025688 [place] [address] 05-27-2022 12:58-0400 SaO2% (BldA) [Mass fraction] 99 % Dr. Amos Floyd Work Phone: 7(562)018-583674 [place] [address] 05-27-2022 12:58-0400 Systolic blood pressure 152 mm[Hg] Dr. Amos Floyd Work Phone: 7(766)039-646674 [place] [address] 01-25-2022 11:33-0500 Body height 157.[address] Amos Floyd Work Phone: 1(404)542-187474 [place] [address] 01-25-2022 11:33-0500 Body mass index (BMI) [Ratio] 25.9 kg/m2 Dr. Amos Floyd Work Phone: 7(251)957-156074 [place] [address] 01-25-2022 11:33-0500 Body weight 64.[address] Amos Floyd Work Phone: 4(027)053-048974 [place] [address] 01-25-2022 11:33-0500 Diastolic blood pressure 91 mm[Hg] Dr. Amos Floyd Work Phone: 3(418)370-689274 [place] [address] 01-25-2022 11:33-0500 Heart rate 92 /min Dr. Amos Floyd Work Phone: 8(320)398-070974 [place] [address] 01-25-2022 11:33-0500 Respiratory rate 18 /min Dr. Amos Floyd Work Phone: 1(235)477-269374 [place] [address] 01-25-2022 11:33-0500 SaO2% (BldA) [Mass fraction] 99 % Dr. Amos Floyd Work Phone: 0(488)217-499474 [place] [address] 01-25-2022 11:33-0500 Systolic blood pressure 128 mm[Hg] Dr. Amos Floyd Work Phone: 8(116)291-976274 [place] [address] 12-20-2021 09:16-0400 Diastolic blood pressure 100 mm[Hg] Rocio Johnson APRN.CNP Work Phone: 7(036)882-124146 [place] [address] 12-20-2021 09:16-0400 Systolic blood pressure 154 mm[Hg] Rocio Older MANAGER TRACK.DESIGN ENG[employer]ER [employer] Work Phone: [facility] 12-20-2021 08:50-0400 Body height 156 cm Rocio Older MANAGER TRACK.DESIGN ENG[employer] Work Phone: [facility] 12-20-2021 08:50-0400 Body weight 64.41 kg Rocio Older MANAGER TRACK.DES[employer] ENG[employer] Work Phone: [facility] 12-20-2021 08:50-0400 Heart rate 96 /min Rocio Older MANAGER TRACK.DESIGN ENG[employer] Work Phone: [facility] 12-20-2021 08:50-0400 Respiratory rate 16 /min Rocio Older MANAGER TRACK.DESIGN ENG[employer] Work Phone: [facility] 12-13-2021 09:14-0400 Body height 157.[address] Amos Floyd Work Phone: [facility] Work Phone: 12-13-2021 09:13-0400 Body mass index (BMI) [Ratio] 25.7 kg/m2 Dr. Amos Floyd Work Phone: [facility] 12-13-2021 09:13-0400 Body weight 63.[address] Amos Floyd Work Phone: [facility] 12-13-2021 09:13-0400 Diastolic blood pressure 95 mm[Hg] Dr. Amos Floyd Work Phone: [facility] 12-13-2021 09:13-0400 Heart rate 80 /min Dr. Amos Floyd Work Phone: [facility] 12-13-2021 09:13-0400 Respiratory rate 18 /min Dr. Amos Floyd Work Phone: [facility] 12-13-2021 09:13-0400 SaO2% (BldA) [Mass fraction] 99 % Dr. Amos Floyd Work Phone: [facility] 12-13-2021 09:13-0400 Systolic blood pressure 146 mm[Hg] Dr. Amos Floyd Work Phone: [facility] 12-06-2021 14:34-0400 Body temperature 97.5 [degF] Amos Floyd MD Work Phone: [facility] 12-06-2021 14:34-0400 Body weight 62.6 kg Amos Floyd MD Work Phone: [facility] 12-06-2021 14:34-0400 Diastolic blood pressure 86 mm[Hg] Amos Floyd MD Work Phone: [facility] 12-06-2021 14:34-0400 Heart rate 84 /min Amos Floyd MD Work Phone: [facility] 12-06-2021 14:34-0400 Respiratory rate 20 /min Amos Floyd MD Work Phone: [facility] 12-06-2021 14:34-0400 Systolic blood pressure 126 mm[Hg] Amos Floyd MD Work Phone: [facility] 12-02-2021 13:34-0400 Body mass index (BMI) [Ratio] 25.9 kg/m2 Dr. Amos Floyd Work Phone: [facility] 12-02-2021 13:34-0400 Body temperature 94.6 [degF] Dr. Amos Floyd Work Phone: [facility] 12-02-2021 13:34-0400 Body weight 64.[address] Amos Floyd Work Phone: [facility] 12-02-2021 13:34-0400 Diastolic blood pressure 104 mm[Hg] Dr. Amos Floyd Work Phone: [facility] 12-02-2021 13:34-0400 Heart rate 79 /min Dr. Amos Floyd Work Phone: [facility] 12-02-2021 13:34-0400 Respiratory rate 16 /min Dr. Amos Floyd Work Phone: 0(901)697-021588 [place] [address] 12-02-2021 13:34-0400 SaO2% (BldA) [Mass fraction] 95 % Dr. Amos Floyd Work Phone: 6(982)834-914588 [place] [address] 12-02-2021 13:34-0400 Systolic blood pressure 158 mm[Hg] Dr. Amos Floyd Work Phone: 3(244)570-618774 [place] [address] 11-26-2021 13:15-0400 Body height 157.[address] Amos Floyd Work Phone: 8(086)201-952988 [place] [address] Work Phone: 11-26-2021 13:15-0400 Body temperature 97.8 [degF] Dr. Amos Floyd Work Phone: 3(381)690-612074 [place] [address] 11-26-2021 13:15-0400 Diastolic blood pressure 88 mm[Hg] Dr. Amos Floyd Work Phone: 9(556)506-819374 [place] [address] 11-26-2021 13:15-0400 Heart rate 79 /min Dr. Amos Floyd Work Phone: 3(608)087-184174 [place] [address] 11-26-2021 13:15-0400 Respiratory rate 16 /min Dr. Amos Floyd Work Phone: 8(290)254-807874 [place] [address] 11-26-2021 13:15-0400 SaO2% (BldA) [Mass fraction] 98 % Dr. Amos Floyd Work Phone: 3(129)298-841888 [place] [address] 11-26-2021 13:15-0400 Systolic blood pressure 144 mm[Hg] Dr. Amos Floyd Work Phone: 5(369)127-189274 [place] [address] 11-18-2021 08:00-0400 Body temperature 98.2 [degF] Dr. Amos Floyd Work Phone: 4(025)651-182174 [place] [address] Work Phone: 11-18-2021 08:00-0400 Diastolic blood pressure 77 mm[Hg] Dr. Amos Floyd Work Phone: 6(509)440-541088 [place] [address] Work Phone: 11-18-2021 08:00-0400 Heart rate 72 /min Dr. Amos Floyd Work Phone: [facility] Work Phone: 11-18-2021 08:00-0400 Respiratory rate 18 /min Dr. Amos Floyd Work Phone: [facility] Work Phone: 11-18-2021 08:00-0400 SaO2% (BldA) [Mass fraction] 98 % Dr. Amos Floyd Work Phone: [facility] Work Phone: 11-18-2021 08:00-0400 Systolic blood pressure 112 mm[Hg] Dr. Amos Floyd Work Phone: [facility] Work Phone: 11-18-2021 05:55-0400 Body weight 63.[address] Amos Floyd Work Phone: [facility] Work Phone: 11-17-2021 10:20-0400 Body height 157.[address] Amos Floyd Work Phone: [facility] Work Phone: 11-17-2021 05:24-0400 Body weight 63.2 kg [facility] Work Phone: 11-17-2021 04:00-0400 Heart rate 83 /min [facility] Work Phone: 11-17-2021 01:25-0400 Body height 157.48 cm [facility] Work Phone: 11-17-2021 01:25-0400 Body mass index (BMI) [Ratio] 25.4 kg/m2 [facility] Work Phone: 11-17-2021 00:51-0400 Body temperature 98.1 [degF] [facility] Work Phone: 11-17-2021 00:51-0400 Diastolic blood pressure 63 mm[Hg] [facility] Work Phone: 11-17-2021 00:51-0400 Respiratory rate 25 /min [facility] Work Phone: 11-17-2021 00:51-0400 SaO2% (BldA) [Mass fraction] 96 % [facility] Work Phone: 11-17-2021 00:51-0400 Systolic blood pressure 84 mm[Hg] [facility] Work Phone: 10-20-2021 22:49-0400 Body mass index (BMI) [Ratio] 23 kg/m2 [facility] Work Phone: 10-13-2021 13:48-0400 Body temperature 98.71 [degF] Irene Praisler-Wood MANAGER TRACK.DESIGN ENG[employer]ER [employer] Work Phone: [facility] 10-13-2021 13:48-0400 Body weight 62.51 kg Irene Praisler-Wood MANAGER TRACK.DESIGN ENG[employer] Work Phone: [facility] 10-13-2021 13:48-0400 Diastolic blood pressure 84 mm[Hg] Irene Praisler-Wood MANAGER TRACK.DES[employer] Work Phone: [facility] 10-13-2021 13:48-0400 Heart rate 111 /min Irene Praisler-Wood MANAGER TRACK.DESIGN ENG[employer] Work Phone: [facility] 10-13-2021 13:48-0400 Respiratory rate 18 /min Irene Praisler-Wood MANAGER TRACK.DESIGN ENG[employer] Work Phone: [facility] 10-13-2021 13:48-0400 SaO2% (BldA) [Mass fraction] 97 % Irene Praisler-Wood MANAGER TRACK.DES[employer] ENG[employer] Work Phone: [facility] 10-13-2021 13:48-0400 Systolic blood pressure 124 mm[Hg] Irene Praisler-Wood MANAGER TRACK.DES[employer] Work Phone: [facility] 09-19-2021 02:13-0400 Body mass index (BMI) [Ratio] 23 kg/m2 Dr. Amos Floyd Work Phone: [facility] Work Phone: 08-20-2021 06:53-0400 Body mass index (BMI) [Ratio] 23 kg/m2 Dr. Amos Floyd Work Phone: [facility] Work Phone: 07-20-2021 20:34-0400 Body mass index (BMI) [Ratio] 23 kg/m2 Dr. Amos Floyd Work Phone: [facility] Work Phone: 07-20-2021 09:20-0400 Body temperature 97.11 [degF] Amos Floyd MD Work Phone: [facility] 07-20-2021 09:20-0400 Body weight 62.6 kg Amos Floyd MD Work Phone: [facility] 07-20-2021 09:20-0400 Diastolic blood pressure 68 mm[Hg] Amos Floyd MD Work Phone: [facility] 07-20-2021 09:20-0400 Heart rate 72 /min Amos Floyd MD Work Phone: [facility] 07-20-2021 09:20-0400 Respiratory rate 16 /min Amos Floyd MD Work Phone: [facility] 07-20-2021 09:20-0400 Systolic blood pressure 114 mm[Hg] Amos Floyd MD Work Phone: [facility] 07-12-2021 11:22-0400 Body height 157.[address] Amos Floyd Work Phone: [facility] Work Phone: 07-12-2021 11:22-0400 Body mass index (BMI) [Ratio] 25.6 kg/m2 Dr. Amos Floyd Work Phone: [facility] Work Phone: 07-12-2021 11:22-0400 Body weight 63.[address] Amos Floyd Work Phone: [facility] Work Phone: 07-12-2021 11:22-0400 Diastolic blood pressure 88 mm[Hg] Dr. Amos Floyd Work Phone: [facility] Work Phone: 07-12-2021 11:22-0400 Heart rate 74 /min Dr. Amos Floyd Work Phone: [facility] Work Phone: 07-12-2021 11:22-0400 Respiratory rate 18 /min Dr. Amos Floyd Work Phone: [facility] Work Phone: 07-12-2021 11:22-0400 SaO2% (BldA) [Mass fraction] 98 % Dr. Amos Floyd Work Phone: [facility] Work Phone: 07-12-2021 11:22-0400 Systolic blood pressure 129 mm[Hg] Dr. Amos Floyd Work Phone: [facility] Work Phone: 07-12-2021 11:22-0400 Body height 157.[address] Amos Floyd Work Phone: [facility] Work Phone: 07-12-2021 11:22-0400 Body mass index (BMI) [Ratio] 25.6 kg/m2 Dr. Amos Floyd Work Phone: [facility] Work Phone: 07-12-2021 11:22-0400 Body weight 63.[address] Amos Floyd Work Phone: [facility] Work Phone: 07-12-2021 11:22-0400 Diastolic blood pressure 88 mm[Hg] Dr. Amos Floyd Work Phone: [facility] Work Phone: 07-12-2021 11:22-0400 Heart rate 74 /min Dr. Amos Floyd Work Phone: [facility] Work Phone: 07-12-2021 11:22-0400 Respiratory rate 18 /min Dr. Amos Floyd Work Phone: [facility] Work Phone: 07-12-2021 11:22-0400 SaO2% (BldA) [Mass fraction] 98 % Dr. Amos Floyd Work Phone: [facility] Work Phone: 07-12-2021 11:22-0400 Systolic blood pressure 129 mm[Hg] Dr. Amos Floyd Work Phone: [facility] Work Phone: 06-20-2021 03:20-0400 Body mass index (BMI) [Ratio] 23 kg/m2 Dr. Amos Floyd Work Phone: [facility] Work Phone: 05-27-2021 12:45-0400 Body height 157.[address] Amos Floyd Work Phone: [facility] Work Phone: 05-27-2021 12:45-0400 Body mass index (BMI) [Ratio] 25.6 kg/m2 Dr. Amos Floyd Work Phone: [facility] Work Phone: 05-27-2021 12:45-0400 Body temperature 97.1 [degF] Dr. Amos Floyd Work Phone: [facility] Work Phone: 05-27-2021 12:45-0400 Body weight 63.[address] Amos Floyd Work Phone: [facility] Work Phone: 05-27-2021 12:45-0400 Diastolic blood pressure 92 mm[Hg] Dr. Amos Floyd Work Phone: [facility] Work Phone: 05-27-2021 12:45-0400 Heart rate 89 /min Dr. Amos Floyd Work Phone: [facility] Work Phone: 05-27-2021 12:45-0400 Respiratory rate 12 /min Dr. Amos Floyd Work Phone: [facility] Work Phone: 05-27-2021 12:45-0400 SaO2% (BldA) [Mass fraction] 99 % Dr. Amos Floyd Work Phone: [facility] Work Phone: 05-27-2021 12:45-0400 Systolic blood pressure 134 mm[Hg] Dr. Amos Floyd Work Phone: [facility] Work Phone: 05-21-2021 01:38-0400 Body mass index (BMI) [Ratio] 23 kg/m2 Dr. Amos Floyd Work Phone: [facility] Work Phone: 04-20-2021 09:35-0500 Body mass index (BMI) [Ratio] 23 kg/m2 Dr. Amos Floyd Work Phone: [facility] Work Phone: 04-20-2021 08:35-0500 Body mass index (BMI) [Ratio] 23 kg/m2 Dr. Amos Floyd Work Phone: [facility] Work Phone: 2021 10:08-0500 Body height 157.[address] Amos Floyd Work Phone: [facility] Work Phone: 2021 10:08-0500 Body mass index (BMI) [Ratio] 26.5 kg/m2 Dr. Amos Floyd Work Phone: [facility] Work Phone: 2021 10:08-0500 Body weight 65.[address] Amos Floyd Work Phone: [facility] Work Phone: 2021 10:08-0500 Diastolic blood pressure 92 mm[Hg] Dr. Amos Floyd Work Phone: [facility] Work Phone: 2021 10:08-0500 Heart rate 80 /min Dr. Amos Floyd Work Phone: [facility] Work Phone: 2021 10:08-0500 Respiratory rate 18 /min Dr. Amos Floyd Work Phone: [facility] Work Phone: 2021 10:08-0500 SaO2% (BldA) [Mass fraction] 99 % Dr. Amos Floyd Work Phone: [facility] Work Phone: 2021 10:08-0500 Systolic blood pressure 134 mm[Hg] Dr. Amos Floyd Work Phone: [facility] Work Phone: 03-22-2021 21:52-0500 Body mass index (BMI) [Ratio] 23 kg/m2 Dr. Amos Floyd Work Phone: [facility] Work Phone: 02-21-2021 03:05-0500 Body mass index (BMI) [Ratio] 23 kg/m2 Dr. Amos Floyd Work Phone: [facility] Work Phone: 01-20-2021 01:16-0500 Body mass index (BMI) [Ratio] 23 kg/m2 Dr. Amos Floyd Work Phone: [facility] Work Phone: Encounters Encounter Date Encounter Type Care Provider Facility Start: 01-08-2025 ambulatory [facility] Facility:[facility] Start: 12-31-2024 ambulatory [facility] Facility:[facility] Start: 12-27-2024 ambulatory Nixon Smyth Facility: [facility] Start: 12-27-2024 End: 12-28-2024 ambulatory Ted F Cortez Facility:[facility] Start: 12-13-2024 Encounter for genera l adult medical examination without abnormal findings Jennifer Tarango [facility] Start: 12-10-[address] Jennifer Tarango DO -Ultrasound [facility] Work Phone: Start: 12-10-2024 End: 12-10-2024 ambulatory Jennifer Tarango Facility:[facility] Start: 12-04-2024 Non-patient / Non-visit Dr. Salena ZELAYA -[facility] Start: 12-04-2024 ambulatory MEMO FRYE Work Phone: -[facility] Start: 12-04-2024 ambulatory Jennifer Tarango Facility: [facility] Start: 12-03-2024 End: 12-03-2024 Patient encounter procedure Basim Joel DIGITAL RESEARCH ANALYST -Laboratory Work Phone: Start: 12-03-2024 End: 12-03-2024 ambulatory Jennifer Tarango Facility:[facility] Start: 11-28-2024 End: 11-28-2024 ambulatory BASIM JOEL [facility] Start: 11-28-2024 End: 11-28-2024 Office outpatient visit 25 minutes Basim Joel MANAGER TRACK - [employer] Work Phone: [facility] [place] Comment on above: Chronic systolic hea rt failure (HCC) (Primary Dx); S/P TAVR (transcatheter aortic valve replacement); Deep vein thrombosis (DVT) of proximal vein of both lower extremities, unspecified chronicity (HCC); Stage 3b chronic kidney disease (CMS/HCC); [place]'s disease (HCC) Start: 11-28-2024 End: 11-28-2024 Subsequent hospital visit by physician Dylon Gupta MANAGER TRACK - DESIGN ENG[employer] Work Phone: [facility] Comment on above: Severe aortic stenos is Start: 11-28-2024 End: 11-28-2024 ambulatory DYLON GUPTA [facility] Start: 11-25-2024 End: 11-25-[address] Jennifer Tarango DO -Laboratory Work Phone: Start: 11-25-2024 End: 11-25-2024 ambulatory Jennifer Tarango Facility:[facility] Start: 11-14-2024 End: 11-14-[address] Jordan Marte MD -[facility] Work Phone: Start: 11-14-2024 End: 11-14-[address] Amos Floyd MD Work Phone: [facility] Start: 10-31-2024 End: 10-31-2024 ambulatory BASIM [facility] Start: 10-31-2024 End: 10-31-2024 Office outpatient visit 25 minutes Basim Joel MANAGER TRACK - [employer] ENG[employer] Work Phone: [facility] [place] Comment on above: Severe aortic stenos is (Primary Dx); Stage 3b chronic kidney disease (HCC); [place]'s disease (HCC); Chronic systolic heart failure (HCC); Deep vein thrombosis (DVT) of proximal vein of both lower extremities, unspecified chronicity (HCC) Start: 10-31-2024 End: 10-31-2024 ambulatory BASIM [facility] Start: 10-29-2024 End: 10-29-2024 Office outpatient visit 25 minutes Amos Floyd MD Work Phone: [facility] [place] Comment on above: S/p TAVR (transcathe ter aortic valve replacement), bioprosthetic (Primary Dx); Pure hypercholesterolemia; Encounter for immunization; Stage 3b chronic kidney disease (HCC); Hypertensive kidney disease with stage 3b chronic kidney disease (HCC); Nonrheumatic aortic valve stenosis Start: 10-29-2024 End: 10-29-2024 ambulatory AMOS FLOYD Facility:[facility] Start: 10-24-2024 End: 10-24-2024 Orders Only Dylon Gupta [employer] Work Phone: [facility] [employer] [place] Comment on above: Severe aortic stenos is (Primary Dx) Start: 10-23-2024 End: 10-24-2024 Evaluation and management of inpatient Memo Canas MD Work Phone: [facility] Cardiac Thoracic Vascular Intensive Care Unit CTV ICU T1 Comment on above: Severe aortic stenos is (Primary Dx); Aortic valve stenosis, etiology of cardiac valve disease unspecified; Syncope and collapse Start: 10-22-2024 End: 10-22-2024 ambulatory Dylon Gupta [employer] Work Phone: [facility] [employer] [facility] Comment on above: Severe aortic stenos is (Primary Dx) Start: 10-16-2024 End: 10-16-2024 Office outpatient visit 25 minutes Dylon Gupta [employer] Work Phone: [facility] [employer] [facility] Comment on above: Severe aortic stenos is (Primary Dx); Stage 3 chronic kidney disease, unspecified whether stage 3a or 3b CKD (HCC); Acute deep vein thrombosis (DVT) of right lower extremity, unspecified vein (HCC); Acute systolic heart failure (HCC); Moris's disease (HCC) Start: 10-16-2024 End: 10-16-2024 ambulatory [employer] [facility] [employer] [facility] Start: 10-15-2024 End: 10-15-[address] Amos Floyd MD Work Phone: -Laboratory Start: 10-15-2024 End: 10-15-[address] Amos Floyd MD Work Phone: -Laboratory Work Phone: Start: 10-15-2024 End: 10-15-2024 ambulatory BERTO CRUZ Facility:[facility] Start: 10-10-2024 End: 10-23-2024 Telephone encounter Memo Canas MD Work Phone: [facility] Comment on above: Procedure Start: 10-03-2024 End: 10-03-[address] Amos Floyd MD Work Phone: -Laboratory Start: 10-03-2024 End: 10-03-2024 Patient encounter procedure Basim Joel DIGITAL RESEARCH ANALYST -Laboratory Work Phone: Start: 10-03-2024 End: 10-03-2024 ambulatory Basimmoe Joel Facility:[facility] Start: 10-02-2024 End: 10-02-2024 Telephone encounter Basim Joel MANAGER TRACK - [employer]IGN [employer] Work Phone: [facility] Start: 09-26-2024 End: 09-26-2024 ambulatory AMOS FLOYD Facility:[facility] Start: 09-26-2024 End: 09-26-2024 Telephone encounter Basim Joel MANAGER TRACK - [employer] Work Phone: [facility] Start: 09-26-2024 ambulatory AMOS Dominguez lity:[facility] Start: 09-19-2024 End: 09-19-2024 Office outpatient visit 25 minutes Basim Joel MANAGER TRACK - DES[employer] Work Phone: [facility] Comment on above: Aortic valve stenosi s, etiology of cardiac valve disease unspecified (Primary Dx); Deep vein thrombosis (DVT) of proximal vein of both lower extremities, unspecified chronicity (HCC); Acute systolic heart failure (HCC); Moris's disease (HCC); Renal insufficiency; Recurrent UTI Start: 09-19-2024 End: 09-19-2024 ambulatory BASIM JOEL [facility] Start: 09-19-2024 End: 09-23-2024 Telephone encounter Arelis Smith MANAGER TRACK.DESIGN ENG[employer] Work Phone: Urology Comment on above: Consult Start: 09-19-2024 End: 09-19-2024 Subsequent hospital visit by physician Dylon Gupta MANAGER TRACK - DESIGN [employer] Work Phone: [facility] [address] Comment on above: Nonrheumatic aortic valve stenosis Start: 09-19-2024 End: 09-19-2024 ambulatory DYLON [facility] Start: 09-19-2024 End: 09-19-2024 Office consultation new/estab patient 60 min Arelis Smith MANAGER TRACK.DESIGN ENG[employer] Work Phone: Urology Comment on above: Recurrent UTI (Prima ry Dx); History of kidney stones Start: 09-19-2024 End: 09-19-2024 ambulatory ARELIS SMITH Facility:[facility] Start: 09-12-2024 End: 09-19-2024 Telephone encounter Amos Floyd MD Work Phone: [facility] [place] Comment on above: Patient Question Start: 09-10-2024 End: 09-10-[address] Amos Floyd MD Work Phone: -Laboratory Start: 09-10-2024 End: 09-10-[address] Amos Floyd MD Work Phone: -Laboratory Work Phone: Start: 09-10-2024 End: 09-10-2024 [facility] Start: 09-03-2024 End: 09-03-2024 Office consultation new/estab patient 80 min Baldo De La Cruz MD Work Phone: [facility] Comment on above: Severe aortic stenos is (Primary Dx) Start: 09-03-2024 End: 09-03-2024 Office outpatient visit 40 minutes Memo Canas MD Work Phone: [facility] Comment on above: Nonrheumatic aortic valve stenosis (Primary Dx) Start: 09-03-2024 End: 09-03-2024 Orders Only Dylon Gupta MANAGER TRACK - DESIGN ENGINEER PRODUCTS Work Phone: [facility] Comment on above: Nonrheumatic aortic valve stenosis (Primary Dx) Start: 08-31-2024 End: 09-02-2024 Follow-up encounter Amos Floyd MD Work Phone: [facility] [place] Start: 08-29-2024 End: 08-29-2024 Office outpatient visit 25 minutes Amos Floyd MD Work Phone: [facility] Comment on above: Acute deep vein thro mbosis (DVT) of proximal vein of both lower extremities (HCC) (Primary Dx); Adrenal insufficiency (HCC); Primary hypertension; History of UTI; Nonrheumatic aortic valve stenosis; Thyroid nodule greater than or equal to 1 cm in diameter incidentally noted on imaging study, right side. Start: 08-29-2024 End: 08-29-2024 ambulatory AMOS FLOYD Facility:[facility] Start: 08-22-2024 End: 08-22-2024 Patient Outreach Annemarie Read RN Global Account Manager Management Comment on above: Weekly phone contact (Recurring) for Transitional Care Management Start: 08-20-2024 End: 08-20-2024 Follow-up encounter Amos Floyd MD Work Phone: [facility] [place] Start: 08-19-2024 End: 08-19-2024 Telephone encounter Amos Floyd MD Work Phone: [facility] [place] Comment on above: Patient Update Start: 08-16-2024 End: 08-16-2024 ambulatory Amos Floyd MD Work Phone: [facility] [place] Start: 08-16-2024 End: 08-16-2024 Follow-up encounter Amos Floyd MD Work Phone: [facility] [place] Comment on above: Follow up Start: 08-15-2024 End: 08-15-2024 Patient Outreach Annemarie Read RN Global Account Manager Management Comment on above: Initial phone contac t for Transitional Care Management Start: 08-14-2024 End: 08-14-2024 Office outpatient visit 25 minutes Amos Floyd MD Work Phone: [facility] Comment on above: Acute deep vein thro mbosis (DVT) of proximal vein of both lower extremities (HCC) (Primary Dx); Other specified hypotension; Adrenal insufficiency (HCC); Nonrheumatic aortic valve stenosis; Acute cystitis without hematuria Start: 08-14-2024 End: 08-14-2024 ambulatory AMOS FLOYD Facility:[facility] Start: 08-09-2024 Non-patient / Non-visit Dr. Jairo ramos DO -[facility] Work Phone: Start: 08-08-2024 Non-patient / Non-visit Dr. Deidre Toro MD -[facility] Work Phone: Start: 08-07-2024 ambulatory Jairo Mitchell Facility:[facility] Start: 08-07-2024 End: 08-09-2024 Evaluation and management of inpatient Dr. Nixon Silverio DO -Intensive Care Unit Work Phone: Start: 08-05-2024 End: 08-05-2024 Admission to same day surgery center Dr. Jordan Marte MD -Camp Manager/Special Procedures Work Phone: Start: 08-05-2024 End: 08-05-[address] Amos Floyd MD Work Phone: [facility] Work Phone: Start: 07-24-2024 End: 07-24-2024 Office outpatient visit 25 minutes Amos Floyd MD Work Phone: [facility] [place] Comment on above: ASHD (arteriosclerot ic heart disease) (Primary Dx); Primary hypertension; Nonrheumatic aortic valve stenosis; Subconjunctival hemorrhage of left eye; Chronic nonallergic rhinitis; Stage 3b chronic kidney disease (HCC); Adrenal insufficiency (HCC); Encounter for immunization Start: 07-24-2024 End: 07-24-2024 ambulatory AMOS FLOYD Facility:[facility] Start: 07-23-2024 End: 07-23-2024 Patient encounter procedure Heaven VASQUEZ -[facility] Work Phone: Start: 07-23-2024 End: 07-23-[address] Amos Floyd MD Work Phone: [facility] Work Phone: Start: 07-21-2024 ambulatory Basim DISLA Facility:[facility] Start: 07-10-2024 End: 07-10-2024 ambulatory AMOS FLOYD Facility:[facility] Start: 07-05-2024 End: 07-05-2024 ambulatory AMOS FLOYD Facility:[facility] Start: 07-03-2024 ambulatory Amos Floyd Facili ty:[facility] Start: 07-03-2024 [facility] Start: 07-03-2024 End: 07-03-2024 Patient encounter procedure Tucker DISLA -Cardiovascular Services Work Phone: Start: 07-03-2024 End: 07-03-[address] Amos Floyd MD Work Phone: [facility] Work Phone: Start: 06-21-2024 End: 06-21-2024 Discharged Recurring Basim Velasquez PA -Laboratory Work Phone: Start: 06-21-2024 Registered Recurring Basim Velasquez PA -Laboratory Work Phone: Start: 06-21-2024 End: 06-21-[address] Amos Floyd MD Work Phone: [facility] Work Phone: Start: 06-19-2024 End: 06-19-2024 Orders Only Brissa Wright MANAGER TRACK.DESIGN ENGINEER PRODUCTS Work Phone: [facility] Comment on above: Thyroid nodule (Prim christ Dx) Allied Health Visit (Medication Adherence Outreach ) Start: 05-24-2024 Non-patient / Non-visit Dr. Salena THACKERMerrittRosa Isela Start: 05-24-2024 End: 05-24-2024 Patient encounter procedure Tucker DISLA -Cardiovascular Services Work Phone: Start: 05-24-2024 End: 06-19-2024 Discharged Recurring Basim Velasquez PA -Laboratory Work Phone: Start: 05-24-2024 Registered Recurring Basim Velasquez PA -Laboratory Work Phone: Start: 05-24-2024 End: 06-19-[address] Amos Floyd MD Work Phone: [facility] Work Phone: Start: 05-24-2024 End: 05-24-2024 [facility] Start: 05-14-2024 End: 05-14-2024 ambulatory Amos Floyd MD Work Phone: [facility] Comment on above: Allied Health Visit (Medication Adherence Outreach/) Start: 04-29-2024 End: 04-29-2024 Patient encounter procedure Tucker Reyes [place] -[facility] Work Phone: Start: 04-29-2024 End: 04-29-2024 [facility] Facility[facility] Start: 04-26-2024 End: 04-26-2024 Discharged Recurring Basim Velasquez PA -Laboratory Work Phone: Start: 04-26-2024 End: 04-26-[address] Amos Floyd MD Work Phone: [facility] Work Phone: Start: 04-05-2024 End: 04-05-2024 [facility] Start: 04-05-2024 End: 04-05-2024 Patient encounter procedure Del Saravia MA [facility] Comment on above: Population Health Na vigation Outreach ([employer] High Risk - 1st attempt/) Start: 04-03-2024 End: 04-03-[address] Jennifer Tarango DO -Laboratory Work Phone: Start: 04-03-2024 End: 04-03-2024 ambulatory Jennifer Tarango Facility:[facility] Start: 03-21-2024 End: 03-22-2024 ambulatory Basim DISLA Facility:[facility] Start: 03-21-2024 End: 03-22-2024 Discharged Recurring Basim Velasquez PA -Laboratory Work Phone: Start: 02-22-2024 End: 02-22-2024 Telephone encounter Amos Floyd MD Work Phone: [facility] Comment on above: Results Start: 02-01-2024 End: 02-01-2024 Subsequent hospital visit by physician [facility] (I-Stat) Work Phone: Cat Scan Comment on above: Nodule of lower lobe of right lung [R91.1] Start: 02-01-2024 End: 02-01-2024 ambulatory AMOS FLOYD Facility:[facility] Start: 01-23-2024 End: 01-23-2024 ambulatory AMOS FLOYD Facility:[facility] Start: 01-23-2024 End: 01-23-2024 Patient encounter procedure Amos Floyd MD Work Phone: [facility] Comment on above: Medicare annual well ness [...] Amos Floyd MD Work Phone: [facility] Comment on above: Results Start: 01-15-2024 End: 01-15-2024 Orders Only Amos Floyd MD Work Phone: [facility] Comment on above: Nodule of lower lobe of right lung needing follor up CT (Primary Dx) Start: 01-11-2024 End: 01-11-2024 Nursing evaluation of patient and report Mi Nurse Work Phone: [facility] Comment on above: Age-related osteopor osis with current pathological fracture with routine healing (Primary Dx) Start: 01-11-2024 End: 01-11-2024 ambulatory AMOS FLOYD Facility:[facility] Start: 01-04-2024 End: 01-20-2024 ambulatory Basim DISLA Facility:[facility] Start: 01-01-2024 End: 01-01-2024 ambulatory AMOS FLOYD Facility:[facility] Start: 01-01-2024 End: 01-01-2024 Subsequent hospital visit by physician [facility] Work Phone: Radiology Comment on above: Abnormal [...] Phone: [facility] Start: 12-26-2023 End: 12-28-2023 Telephone encounter Amos Floyd MD Work Phone: [facility] Comment on above: Results Start: 12-20-2023 End: 12-20-2023 Patient encounter procedure Nathaly Ren APRN.DESIGN ENGINEER PRODUCTS Work Phone: [facility] Comment on above: Radiology Review Start: 12-20-2023 End: 12-20-2023 Telephone encounter Nathaly Ren APRN.DESIGN ENGINEER [employer]ODUCTS Work Phone: [facility] Start: 12-06-2023 End: 12-07-2023 Refill Amos Floyd MD Work Phone: [facility] [place] Comment on above: Refill Request Start: 12-05-2023 End: 12-11-2023 Telephone encounter Amos Floyd MD Work Phone: [facility] [place] Comment on above: Insurance Authorizat ion Start: 11-28-2023 End: 12-01-2023 Refill Amos Floyd MD Work Phone: [facility] Start: 11-14-2023 End: 11-14-2023 ambulatory Jacey Reyes RN Work Phone: Global Account Manager Management Start: 09-19-2023 End: 09-19-2023 ambulatory Kole El PT Work Phone: [facility] Comment on above: Physical decondition ing (Primary Dx); Gait abnormality; Weakness Start: 09-12-2023 End: 09-12-2023 ambulatory Koleberny El PT Work Phone: [facility] Comment on above: Physical decondition ing (Primary Dx); Gait abnormality; Weakness Start: 09-08-2023 End: 09-08-2023 ambulatory Koleberny El PT Work Phone: [facility] Comment on above: Physical decondition ing (Primary Dx); Gait abnormality; Weakness Start: 09-06-2023 End: 01-15-2024 ambulatory Amos Floyd MD Work Phone: [facility] [place] Start: 09-06-2023 End: 01-15-2024 Follow-up encounter Amos Floyd MD Work Phone: [facility] [place] Comment on above: Patient followup Start: 08-30-2023 End: 08-30-2023 ambulatory Kole El PT Work Phone: [facility] Comment on above: Physical decondition ing (Primary Dx); Gait abnormality; Weakness Start: 08-21-2023 End: 08-21-2023 ambulatory Gisel Frost TRACK INSPECTOR Work Phone: [facility] Comment on above: Physical decondition ing (Primary Dx); Gait abnormality; Weakness Start: 08-17-2023 E-mail encounter fro m caregiver Nathaly Sorianoli MURILLO.DESIGN ENGINEER PRODUCTS Work Phone: [facility] Start: 08-17-2023 Patient encounter procedure Nathaly Sorianoli MURILLO.DESIGN ENGINEER [employer]ODUCTS Work Phone: [facility] Comment on above: Actionable Finding Start: 08-11-2023 End: 08-11-2023 Patient encounter procedure Amos Floyd MD Work Phone: [facility] [place] Comment on above: Primary hypertension (Primary Dx); Hypercalcemia; Adrenal hypofunction (HCC); Nonrheumatic aortic valve stenosis Start: 08-09-2023 End: 08-09-2023 ambulatory Kole Sienna PT Work Phone: [facility] Comment on above: Physical decondition ing (Primary Dx); Gait abnormality; Weakness Start: 08-08-2023 Telephone encounter Amos maria MD Work Phone: [facility] [place] Comment on above: Hypertension Start: 08-02-2023 End: 08-02-2023 ambulatory Kole Sienna PT Work Phone: [facility] Comment on above: Physical decondition ing (Primary Dx); Gait abnormality; Weakness Start: 07-19-2023 End: 01-15-2024 ambulatory Kole Sienna PT Work Phone: [facility] Comment on above: Physical decondition ing (Primary Dx); Gait abnormality; Weakness medication midodrine Start: 07-05-2023 End: 07-05-2023 ambulatory Kole Sienna PT Work Phone: [facility] Comment on above: Physical decondition ing (Primary Dx); Gait abnormality; Weakness Start: 06-30-2023 End: 06-30-2023 Patient encounter procedure Amos Floyd MD Work Phone: [facility] [place] Comment on above: Hypercalcemia (Prima ry Dx); Age-related osteoporosis with current pathological fracture with routine healing; Hypokalemia; Adrenal hypofunction (HCC); NSTEMI (non-ST elevated myocardial infarction) (HCC); ASHD (arteriosclerotic heart disease); Nonrheumatic aortic valve stenosis Start: 06-28-2023 End: 06-28-2023 ambulatory Kole El PT Work Phone: [facility] Comment on above: Physical decondition ing (Primary Dx); Gait abnormality; Weakness Start: 06-21-2023 End: 06-21-2023 ambulatory Kole Sienna PT Work Phone: [facility] Comment on above: Physical decondition ing (Primary Dx); Gait abnormality; Weakness Start: 06-19-2023 Telephone encounter Delfino yost APRN.DESIGN ENGINEER PRODUCTS Work Phone: [facility] Card[facility] [place] Comment on above: Appointment Start: 06-19-2023 End: 06-20-[address] Amos Floyd Work Phone: [facility] Work Phone: Start: 06-19-2023 End: 06-20-[address] Amos Floyd Work Phone: [facility]-Laboratory Work Phone: Start: 06-14-2023 End: 06-14-2023 ambulatory Kole El PT Work Phone: [facility] Comment on above: Physical decondition ing (Primary Dx); Gait abnormality; Muscle weakness Start: 06-09-2023 ambulatory Rocio alexander APRN.DESIGN ENGINEER PRODUCTS Work Phone: [facility] Start: 06-09-2023 Evaluation and management of inpatient Rocio Elizalde APRN.DESIGN ENGINEER PRODUCTS Work Phone: [facility] [place] Comment on above: is inpatient a t [facility] Start: 06-08-2023 ambulatory Amos salazar MD Work Phone: [facility] [place] Comment on above: Chest Pain Start: 06-07-2023 Telephone encounter Rocio gomez MANAGER TRACK.DESIGN ENGINEER PRODUCTS Work Phone: [facility] [place] Comment on above: Blood Pressure Start: 05-31-2023 End: 05-31-[address] Amos Floyd Work Phone: [facility] Work Phone: Comment on above: Physical decondition ing (Primary Dx); Muscle weakness; Gait abnormality Start: 05-31-2023 Telephone encounter Amos maria MD Work Phone: [facility] [place] Comment on above: Clinical Update Start: 05-31-2023 End: 05-31-[address] Amos Floyd Work Phone: [facility]-Medical Out Work Phone: Start: 05-31-[address] Jenni Floyd Work Phone: [facility]-Laboratory Work Phone: Start: 05-31-2023 End: 05-31-2023 Patient encounter procedure Rocio Elizalde MANAGER TRACK.DESIGN ENGINEER PRODUCTS Work Phone: [facility] [place] Comment on above: Other specified hypo tension (Primary Dx); Moris's disease (HCC); Hypercalcemia Start: 05-31-2023 End: 05-31-2023 ambulatory Kole El PT Work Phone: [facility] Comment on above: Gait abnormality (Pr imary Dx); Physical deconditioning; Weakness Start: 05-24-2023 End: 05-26-2023 ambulatory Rocio Elizalde MANAGER TRACK.DESIGN ENGINEER PRODUCTS Work Phone: [facility] Start: 05-24-2023 Evaluation and management of inpatient Rocio Elizalde APRN.DESIGN ENGINEER [employer]ODUCTS Work Phone: [facility] [place] Comment on above: is inpatient a dana BASHIR Start: 05-24-2023 End: 05-26-2023 Evaluation and management of inpatient [facility] Start: 05-23-2023 End: 05-24-2023 Emergency department patient [facility] Dr. Amos Floyd [facility] Start: 05-23-2023 Telephone encounter Hung Freed MD Work Phone: [facility] Comment on above: Results Start: 05-23-2023 End: 05-23-2023 Patient encounter procedure Rocio Jorge Fide MANAGER TRACK.DESIGN ENGINEER PRODUCTS Work Phone: [facility] [place] Comment on above: Hypercalcemia (Prima ry Dx); Fatigue, unspecified type; Urinary frequency; Myalgias; Confusion; Weakness Start: 05-22-2023 Telephone encounter Amos maria MD Work Phone: [facility] [place] Comment on above: Patient Question Start: 05-19-2023 ambulatory Amos salazar MD Work Phone: [facility] Start: 05-19-2023 Follow-up encounter Amos maria MD Work Phone: [facility] [place] Comment on above: Zometa medication/ E R visit followup care. Start: 05-15-2023 End: 05-15-2023 Emergency department patient visit Dr. Amos Floyd [facility] Work [facility]: Start: 05-15-2023 Telephone encounter Amos maria MD Work Phone: [facility] [place] Comment on above: Patient Update Start: 05-09-2023 End: 05-09-2023 ambulatory José Shi PT, DPT [facility] Comment on above: Gait abnormality (Pr imary Dx); Hip pain, unspecified laterality; Closed displaced fracture of fifth metatarsal bone of right foot with delayed healing, subsequent encounter Start: 05-02-2023 End: 05-02-2023 ambulatory José Shi PT DPT [facility] Comment on above: Gait abnormality (Pr imary Dx); Hip pain, unspecified laterality; Closed displaced fracture of fifth metatarsal bone of right foot with delayed healing, subsequent encounter Start: 2023 End: 04-20-[address] Amos Floyd Work Phone: [facility] Work Phone: Start: 2023 End: 04-20-[address] Amos Floyd Work Phone: [facility]-Laboratory Work Phone: Start: [address] Jenni [facility] Start: 04-11-2023 End: 04-11-2023 ambulatory Kole El PT Work Phone: [facility] Comment on above: Gait abnormality (Pr imary Dx); Hip pain, unspecified laterality; Closed displaced fracture of fifth metatarsal bone of right foot with delayed healing, subsequent encounter Start: 04-10-2023 Non-patient / Non-visit Dr. Atiya Floyd Work Phone: [facility] Start: 04-10-2023 End: 04-10-[address] Amos Floyd Work Phone: [facility] Work Phone: Start: 04-10-2023 End: 04-10-[address] Amos Floyd Work Phone: [facility]-Cardiovascula r Services Work Phone: Start: 04-04-2023 End: 04-04-[address] Amos Floyd Work Phone: [facility] Work Phone: Start: 04-04-2023 End: 04-04-[address] Amos Floyd Work Phone: [facility]-Laboratory, Phy Office 3rd Flr Start: 04-03-2023 End: 04-03-2023 ambulatory Kole lE PT Work Phone: [facility] Comment on above: Gait abnormality (Pr imary Dx); Hip pain, unspecified laterality; Closed displaced fracture of fifth metatarsal bone of right foot with delayed healing, subsequent encounter Start: 03-28-[address] Jenni [facility] Start: 03-28-2023 End: 03-28-2023 ambulatory Kole El PT Work Phone: [facility] Comment on above: Gait abnormality (Pr imary Dx); Hip pain, unspecified laterality; Closed displaced fracture of fifth metatarsal bone of right foot with delayed healing, subsequent encounter Start: 03-23-2023 ambulatory Omar bernardo Work Phone: Podiatry Comment on above: xrays Start: 03-23-2023 E-mail encounter fro m caregiver Omar Anthony Work Phone: [facility] Start: 03-03-2023 End: 03-03-[address] Amos Floyd Work Phone: [facility] Work Phone: Start: 02-24-2023 End: 02-24-[address] Amos Floyd Work Phone: [facility] Work Phone: Start: 02-24-2023 End: 02-24-[address] [facility]os [facility] Start: 02-08-2023 End: 02-19-[address] Amos Floyd Work Phone: [facility] Work Phone: Start: 02-08-2023 End: 02-19-[address] Amos [facility] Start: 01-19-2023 End: 01-19-2023 Patient encounter procedure Amos Floyd MD Work Phone: [facility] [place] Comment on above: Medicare annual well ness visit, subsequent (Primary Dx); Primary hypertension; Pure hypercholesterolemia; Atopic neurodermatitis; Adrenal hypofunction (HCC); Disorder of autonomic nervous system; Stage 3b chronic kidney disease (HCC); Age-related osteoporosis with current pathological fracture with routine healing; Need for COVID-19 vaccine; Hypercalcemia Start: 01-18-2023 End: 01-18-2023 Subsequent hospital visit by physician [facility] Work Phone: Radiology Comment on above: Closed displaced fra cture of fifth metatarsal bone of right foot, initial encounter [S92.351A] Start: 12-23-2022 End: 01-19-[address] Amos Floyd Work Phone: [facility] Work Phone: Start: 12-23-2022 End: 01-19-[address] Amos [facility] Start: 12-19-2022 End: 12-19-2022 Patient encounter procedure Omar Cruz Work Phone: Podiatry Comment on above: Closed displaced fra cture of fifth metatarsal bone of right foot, initial encounter (Primary Dx) Start: 12-19-2022 End: 12-19-2022 Subsequent hospital visit by physician [facility] Work Phone: Radiology Comment on above: Closed displaced fra cture of fifth metatarsal bone of right foot, initial encounter [S92.351A] Start: 12-08-2022 End: 12-08-[address] Amos Floyd Work Phone: [facility] Work Phone: Start: 12-08-2022 End: 12-08-[address] Amos Floyd Work Phone: [facility]-Laboratory Work Phone: Start: 12-02-2022 Refill Amos salazar MD Work Phone: [facility] Comment on above: Refill Request Start: 12-01-2022 End: 12-01-2022 Subsequent hospital visit by physician [facility] Work Phone: Radiology Comment on above: Closed displaced fra cture of fifth metatarsal bone of right foot, initial encounter [S92.351P] Start: 11-25-2022 End: 11-25-[address] Amos Floyd Work Phone: [facility]-Medical Out Work Phone: Start: 11-24-2022 End: 11-24-[address] Amos Floyd Work Phone: [facility] Work Phone: Start: 11-08-2022 End: 11-08-2022 Subsequent hospital visit by physician X[facility] Work Phone: Radiology Comment on above: Foot pain, right [M7 9.671] Start: 11-08-2022 End: 11-08-2022 Patient encounter procedure Jacinda Enriquez APRN.DESIGN ENGINEER [employer]ODUCTS Work Phone: [facility] Comment on above: Foot pain, right (Pr imary Dx); Closed fracture of right foot, initial encounter Start: 11-01-2022 End: 11-01-2022 ambulatory Kole El PT Work Phone: [facility] Comment on above: Hip pain, unspecifie d laterality [M25.559] (Primary Dx) Start: 10-26-2022 End: 10-26-[address] Amos Floyd Work Phone: [facility] Work Phone: Start: 10-26-2022 End: 10-26-[address] Amos Floyd Work Phone: [facility] Work Phone: Start: 10-26-2022 End: 10-26-2022 Subsequent hospital visit by physician Xr [facility] Work Phone: Radiology Comment on above: Hip pain, unspecifie d laterality [M25.559] Start: 10-26-2022 End: 10-26-2022 Patient encounter procedure Amos Floyd MD Work Phone: [facility] [place] Comment on above: Hip pain, unspecifie d laterality (Primary Dx); Stage 3b chronic kidney disease (HCC); Deep vein thrombosis (DVT) of lower extremity, unspecified chronicity, unspecified laterality, unspecified vein (HCC); Need for influenza vaccination Start: 10-11-2022 End: 10-11-[address] Amos Floyd Work Phone: [facility] Work Phone: Start: 10-11-2022 End: 10-11-[address] Amos Floyd Work Phone: [facility] Work Phone: Start: 09-19-2022 Refill Nevin Brooks Work Phone: Dermatology Comment on above: Refill Request Start: 09-12-2022 End: 09-19-[address] Amos Floyd Work Phone: [facility] Work Phone: Start: 09-12-2022 End: 09-19-[address] Amos Floyd Work Phone: [facility] Work Phone: Start: 08-11-2022 End: 08-11-[address] Amos Floyd Work Phone: [facility] Work Phone: Start: 08-11-2022 End: 08-11-[address] Amos Floyd Work Phone: [facility] Work Phone: Start: 08-04-2022 End: 08-04-[address] Amos Floyd Work Phone: [facility] Work Phone: Start: 07-27-2022 Telephone encounter Ryan rick MD Work Phone: Dermatology Comment on above: [employer] Worker - O ther Start: 07-26-2022 End: 07-26-[address] Amos Floyd Work Phone: [facility] Work Phone: Start: 07-22-2022 Telephone encounter Ryan rick MD Work Phone: Dermatology Comment on above: Patient Question Start: 07-20-2022 End: 07-20-2022 Patient encounter procedure Rocio Johnson APRN.[employer] Work Phone: [facility] [place] Comment on above: Primary hypertension (Primary Dx); Pure hypercholesterolemia; Stage 3b chronic kidney disease (HCC); ASHD (arteriosclerotic heart disease); Osteopenia, unspecified location Start: 07-08-2022 End: 07-20-[address] Amos Floyd Work Phone: [facility] Work Phone: Start: 07-08-2022 End: 07-20-[address] Amos Floyd Work Phone: [facility] Start: 06-07-2022 End: 06-07-[address] Amos Floyd Work Phone: [facility] Work Phone: Start: 06-07-2022 End: 06-07-[address] Amos Floyd Work Phone: [facility] 3rd Flr Start: 05-31-2022 End: 05-31-[address] Amos Floyd Work Phone: [facility] Work Phone: Start: 05-31-2022 End: 05-31-[address] Amos Floyd Work Phone: [facility]-Laboratory Start: 05-27-2022 End: 05-27-[address] Amos Floyd Work Phone: [facility]-Medical Out Start: 05-25-2022 End: 05-25-2022 Patient encounter procedure Ryan Gale MD Work Phone: Dermatology Comment on above: Atopic neurodermatit is (Primary Dx) Start: 05-09-2022 End: 05-20-[address] Amos Floyd Work Phone: [facility] Work Phone: Start: 05-09-2022 End: 05-20-[address] Amos Floyd Work Phone: [facility]-Laboratory Start: 03-25-2022 Non-patient / Non-visit Dr. Atiya Floyd Work Phone: [facility] Start: 03-25-2022 End: 03-25-[address] Amos Floyd Work Phone: [facility] Work Phone: Start: 03-25-2022 End: 03-25-[address] Amos Floyd Work Phone: [facility]-Laboratory Start: 03-15-2022 Telephone encounter Ryan rick MD Work Phone: Dermatology Comment on above: Insurance Authorizat ion ([employer]) Start: 03-14-2022 Refill Ryan Gaitan Work Phone: Dermatology Comment on above: Refill Request Start: 03-10-2022 End: 03-10-[address] Amos Floyd Work Phone: [facility] Work Phone: Start: 03-10-2022 End: 03-10-[address] Amos Floyd [facility] Start: 02-23-2022 End: 02-23-2022 Patient encounter procedure Ryan Gale MD Work Phone: Dermatology Comment on above: Atopic neurodermatit is (Primary Dx) Start: 02-15-2022 End: 02-15-[address] Amos Floyd Work Phone: [facility] Work Phone: Start: 02-15-2022 End: 02-15-[address] Amos Floyd Work [facility]: [facility] Start: 01-27-[address] Jenni Floyd Work Phone: [facility] Start: 01-25-2022 End: 01-25-[address] Amos Floyd Work Phone: [facility] Work Phone: Start: 01-25-2022 End: 01-25-[address] Amos Floyd Work Phone: [facility] Start: 12-28-2021 End: 01-19-[address] Amos Floyd Work Phone: [facility] Work Phone: Start: 12-28-2021 End: 01-19-[address] Amos Floyd Work [facility]: [facility] Start: 12-20-2021 End: 12-20-2021 Patient encounter procedure Rocio Johnson APRN.[employer] Work Phone: [facility] [place] Comment on above: Medicare annual well ness visit, subsequent (Primary Dx); Hypertension, unspecified type; Pure hypercholesterolemia; Encounter for immunization Start: 12-13-2021 End: 12-13-[address] Amos Floyd Work Phone: [facility] Start: 12-08-2021 Documentation procedure Mammog akash Coordinator [facility] Start: 12-08-2021 Letter encounter Mammography Coordinator [facility] Department Start: 12-08-2021 End: 12-08-2021 Subsequent hospital visit by physician Screen Mammo [facility] Comment on above: Encounter for screen ing mammogram for malignant neoplasm of breast [Z12.31] Start: 12-06-2021 End: 12-06-2021 Patient encounter procedure Amos Floyd MD Work Phone: [facility] [place] Comment on above: Hypotension due to h ypovolemia (Primary Dx); Elevated troponin; Acute kidney injury (HCC); Stage 3b chronic kidney disease (HCC); Hypercalcemia; Anticoagulated on Coumadin; Breast pain, left; Encounter for screening mammogram for malignant neoplasm of breast Start: 12-02-2021 Refill Amos salazar MD Work Phone: [address] [place] [address] Comment on above: Refill Request Start: 12-02-2021 End: 12-02-[address] Amos Floyd Work Phone: [facility] Start: 11-26-2021 End: 11-26-[address] Amos Floyd Work Phone: [facility]-Medical Out Start: 11-25-2021 End: 11-25-2021 Patient encounter procedure Ryan Gale MD Work Phone: Dermatology Comment on above: Atopic neurodermatit is (Primary Dx) Start: 11-24-2021 End: 11-24-[address] Amos Floyd Work Phone: [facility] Work Phone: Start: 11-24-2021 End: 11-24-[address] Amos Floyd Work Phone: [facility]-Laboratory, Phy Office 3rd Flr Start: 11-18-2021 Non-patient / Non-visit Dr. Atiya Floyd Work Phone: [facility] [facility] Start: 11-17-2021 Non-patient / Non-visit Dr. Atiya Floyd Work Phone: [facility]-Pulmonary Medicine [facility] Start: 11-17-2021 Non-patient / Non-visit Dr. Atiya Floyd Work Phone: [facility] Start: 11-17-2021 Non-patient / Non-visit Dr. Atiya Floyd Work Phone: [facility] Start: 11-17-2021 End: 11-18-2021 Evaluation and management of inpatient [facility]-Intensive Care Unit Start: 11-02-2021 End: 11-02-[address] Amos Floyd Work Phone: [facility] Work Phone: Start: 11-02-2021 End: 11-02-[address] Amos Floyd Work Phone: [facility]-Laboratory Start: 11-02-2021 Registered Recurring [facility]Laboratory Start: 10-28-2021 ambulatory Luciana montes RN Work Phone: [employer] Comment on above: 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 (enrollment/HAH) Start: 10-14-2021 Telephone encounter Jefferson guzman APRN.[employer] Work Phone: [facility] Comment on above: Results Start: 10-13-2021 End: 10-13-2021 Patient encounter procedure Irene Mendenhall APRN.[employer] Work Phone: [facility] Comment on above: Suspected COVID-19 v irus infection (Primary Dx) Start: 09-28-2021 End: 09-28-[address] Amos Floyd Work Phone: [facility] Work Phone: Start: 09-28-2021 End: 09-28-[address] Amos Floyd Work Phone: [facility]-Laboratory Start: 08-30-2021 End: 09-19-[address] Amos Floyd [facility] Start: 08-25-2021 End: 08-25-2021 Patient encounter procedure Nevin Lee PA-C Work Phone: Dermatology Comment on above: Atopic neurodermatit is (Primary Dx) Start: 07-26-2021 End: 07-26-[address] Amos Floyd [facility] Start: 07-20-2021 End: 07-20-2021 Patient encounter procedure Amos Floyd MD Work Phone: [facility] [place] Comment on above: Adrenal hypofunction (HCC) (Primary Dx); Primary hypertension; ASHD (arteriosclerotic heart disease); Hip pain; Need for COVID-19 vaccine Start: 07-12-2021 End: 07-12-[address] Amos Floyd Work Phone: [facility] Start: 06-25-2021 End: 06-25-[address] Amos Floyd [facility] Start: 05-27-2021 End: 05-27-[address] Amos Floyd Work Phone: [facility]-Medical Out Start: 05-27-2021 End: 05-27-[address] Amos Floyd Work Phone: [facility] Start: 05-27-[address] Jenni Floyd Work Phone: [facility] Start: 04-29-2021 End: 05-20-[address] Amos Floyd Work Phone: [facility]-Laboratory Start: 04-28-2021 Non-patient / Non-visit Dr. Atiya Floyd Work Phone: [facility] Start: 04-28-2021 End: 04-28-[address] Amos Floyd Work Phone: [facility]-Cardiovascula r Services Start: 2021 End: [address] Amos Floyd Work Phone: [facility] Start: 03-31-2021 End: 03-31-[address] Amos Floyd Work Phone: [facility]-Laboratory Start: 03-02-2021 End: 03-22-[address] Amos Floyd Work Phone: [facility]-Laboratory Start: 02-01-2021 End: 02-20-[address] Amos Floyd Work Phone: [facility]-Laboratory Start: 04-28-2020 Evaluation and management of inpatient ARUN CALERO Facility:[facility] Start: 01-17-2018 Ambulatory [facility] Facility :[facility] Start: 01-17-2017 End: 01-17-2017 Ambulatory [facility] Facility:[facility] Start: 04-09-2009 End: 05-14-2009 Patient encounter status Kole El PT Work Phone: [facility] Procedures Date Procedure Procedure Detail Performing Clinician Start: 12-10-2024 Us retroperitoneal r eal time w/image complete MEMO CANAS Work Phone: Start: 12-03-2024 Serum inorganic phos phate measurement MEMO CANAS Work Phone: Start: 11-28-2024 Echo tthrc r-t 2d w/wom-mode compl spec&colr d Dylon Gupta APRN [employer] Work Phone: Start: 11-28-2024 Adult depression scr eening assessment Basim Joel [employer] Work Phone: Start: 10-31-2024 Basic metabolic pane l calcium total Basim Joel APRN [employer] Work Phone: Start: 10-29-2024 Ecg routine ecg w/le ast 12 lds i&r only [facility] Provider Start: 10-24-2024 TTE w or wo fol wcon,Doppler Dylon Gupta MANAGER TRACK [employer] Work Phone: Start: 10-24-2024 Ecg routine ecg w/le ast 12 lds trcg only w/o i&r Dylon Gupta APRN [employer] Work Phone: Start: 10-24-2024 Basic metabolic pane l calcium total Dylon Gupta MANAGER TRACK [employer] Work Phone: Start: 10-23-2024 Echo transthorc r-t 2d w/wo m-mode rec f-up/lmtd Memo Canas MD Work Phone: Start: 10-23-2024 Ecg routine ecg w/le ast 12 lds trcg only w/o i&r Dylon Gupta MANAGER TRACK [employer] Work Phone: Start: 10-23-2024 Basic metabolic pane l calcium total Dylon Gupta MANAGER TRACK [employer] Work Phone: Start: 10-23-2024 OXYGEN THERAPY Dylon D estella MANAGER TRACK [employer] Work Phone: Start: 10-23-2024 Cardiac catheterizat ion study Memo Canas MD Work Phone: Start: 10-23-2024 POCT ACT Memo krishna MD Work Phone: Start: 10-23-2024 Blood typing serologic abo Memo Canas MD Work Phone: Start: 10-23-2024 End: 10-23-2024 TRANSCATHETER AORTIC VALVE REPLACEMENT (TAVR) - OR William Self DO Work Phone: Start: 10-23-2024 Radiologic exam ches t single view Dylon Gupta MANAGER TRACK - [facility] Work Phone: Start: 10-23-2024 Antibody screen BALDO JARRETT Comment on above: Performed By: #### L [id number] ####School Psychologist Assistant: JAQUELIN RICO ([phone])[facility] ([facility])[address] [place] [address] Start: 10-23-2024 Blood typing serologic abo Dylon Gupta MANAGER TRACK - [facility] Work Phone: Start: 09-29-2024 Ecg routine ecg w/le ast 12 lds w/i&r Memo Canas MD Work Phone: Start: 09-19-2024 Ecg routine ecg w/le ast 12 lds trcg only w/o i&r Memo Canas MD Work Phone: Start: 09-19-2024 BLADDER SCAN Arelis Brenda z MANAGER TRACK.[employer] Work Phone: Start: 09-19-2024 Ct angiography chest w/contrast/noncontrast Dylon Gupta MANAGER TRACK - [facility] Work Phone: Start: 09-19-2024 Culture bacterial quanttative colony count urine Arelis Zane MANAGER TRACK.[employer] Work Phone: Start: 09-19-2024 Urnls dip stick/tabl et rgnt auto w/o microscopy Arelis Dusz MANAGER TRACK.[employer] Work Phone: Start: 08-29-2024 Urnls dip stick/tabl [...] PFIZER-BIONTECH COVI D-19 VACCINE AGE 12+ YR ([facility]) Amos Floyd MD Work Phone: Start: [...] AGE 12+ YR [facility] Amos Floyd MD Work Phone: Start: 01-23-2024 Adult depression scr eening assessment Amos Floyd MD Work Phone: Start: 01-01-2024 Radiologic exam ches t 2 views Javier Abbott PA-C Work Phone: Start: 05-26-2023 DISCHARGE PATIENT HAMZA MANCY Start: 05-26-2023 PROTIME-INR LEONARDOZA MANC Y Start: 05-26-2023 Basic metabolic 2000 panel - Serum or Plasma ELISA [facility] Start: 05-26-2023 CBC panel - Blood by Automated count ELISA [facility] Start: 05-26-2023 EXTRA TUBES ELISA MANC Y Start: 05-26-2023 LAVENDER TOP LEONARDOZA MANC Y Start: 05-26-2023 PST TOP ELISA MANC Y Start: 05-26-2023 SST TOP ELISA MANC Y Start: 05-26-2023 End: 05-26-2023 Basic metabolic panel calcium total Raisa Frederick MANAGER TRACK-[employer] Work Phone: Start: 05-26-2023 EXTRA TUBES Jazmine Britt MD Work Phone: Start: 05-26-2023 LAVENDER TOP Jazmine Britt MD Work Phone: Start: 05-26-2023 PST TOP Jazmine Britt MD Work Phone: Start: 05-26-2023 SST TOP Jazmine Britt MD Work Phone: Start: 05-25-2023 CALCIUM, IONIZED ELISA [facility]OUGH Start: 05-25-2023 Calcium ionized Dallasi mamie Frederick MANAGER TRACK-[employer] Work Phone: Start: 05-25-2023 PROTIME-INR ELISA CABRERA Y Start: 05-25-2023 EXTRA TUBES ELISA MANC Y Start: 05-25-2023 Hemoglobin A1c/Hemoglobin.total in Blood ELISA [facility]ONOUGH Start: 05-25-2023 LAVENDER TOP ELISA MANC Y Start: 05-25-2023 PST TOP ELISA MANC Y Start: 05-25-2023 SST TOP ELISA MANC Y Start: 05-25-2023 EXTRA TUBES Jazmine Britt MD Work Phone: Start: 05-25-2023 End: 05-25-2023 Hemoglobin glycosylated a1c Raisa may MANAGER TRACK-[employer] Work Phone: Start: 05-25-2023 LAVENDER TOP Jazmine [...] Magnesium [Mass/volu me] in Serum or Plasma ELISA [facility]ON[facility] Start: 05-24-2023 PTH, INTACT ELISA CABRERA Y Start: 05-24-2023 VITAMIN D 1,25 DIHYDROXY ELISA [facility]ONOUGH Start: 05-24-2023 Comprehensive metabo lic panel Shakira Antunez MANAGER TRACK-[employer] Work Phone: Start: 05-24-2023 EXTRA TUBES Elisa Hightower Batsheva cooper MD Work Phone: Start: 05-24-2023 SST TOP Elisa Hightower Batsheva cooper MD Work Phone: Start: 05-24-2023 REASON FOR NO DVT PROPHYLAXIS - HOSPITAL ADMISSION - MEDICATIONS ELISA [facility]ON[facility] Start: 05-24-2023 DNR AND NO INTUBATIO N AND NO ICU ELISA [facility]ONOUGH Start: 05-24-2023 INITIATE OBSERVATION STATUS ELISA [facility]ONOUGH Start: 05-24-2023 MEASURE HEIGHT ELISA STORM ESTEFANÍA Start: 05-24-2023 WEIGH PATIENT ELISA RENTERIA Start: 05-24-2023 End: 05-24-2023 Comprehensive metabolic panel Shakira Antunez MANAGER TRACK-[employer] Work Phone: Start: 05-23-2023 Plain chest X-ray Dr. Mt Floyd Work Phone: Start: 05-23-2023 Urnls dip stick/tabl et rgnt auto w/o microscopy Rocio M Fide MANAGER TRACK.[employer] Work Phone: Start: 05-15-2023 CT of chest, abdomen and pelvis without contrast Dr. Amos Floyd Work Phone: Start: 05-15-2023 Plain chest X-ray Dr. [facility] Floyd Work Phone: Start: 01-19-2023 Bullhorn COVI D-19 VACCINE (2022- SEASON) AGE 12+ YR Amos Floyd MD Work Phone: Start: 12-19-2022 Radex foot complete minimum 3 views Omar Cruz Work Phone: Start: 12-01-2022 Radex foot complete minimum 3 views Omar Cruz Work Phone: Start: 11-08-2022 Radex foot complete minimum 3 views Jacinda Enriquez MANAGER TRACK.[employer] Work Phone: Start: 10-26-2022 Radex hips bilateral with pelvis minimum 5 views Amos Floyd MD Work Phone: Start: 10-26-2022 INFLUENZA VACCINE, P RSV FREE, AGE 65+ YR, HIGH DOSE, QUADRIVALENT (FLUZONE HIGH-DOSE) Amos Floyd MD Work Phone: Start: 12-20-2021 PFIZER-BIONTECH COVI D-19 BIVALENT BOOSTER VACCINE, AGE 12+ YR Rocio Older MANAGER TRACK.DES[employer] Work Phone: Start: 12-08-2021 Screening mammograph y [...] DTaP/Tdap/Td Vaccines (2 - Td or Tdap) [facility] Start: 11-10-2029 Urine microalbumin profile [facility] Start: 10-25-2027 Diabetes Screening Diabetes Screening [facility] Start: 07-06-2027 Diabetes Screening Diabetes Screening [facility] Start: 01-31-2027 Diabetes Screening Diabetes Screening [facility] Start: 11-10-2026 Diabetes Screening Diabetes Screening [facility] Start: 08-30-2026 Diabetes Screening Diabetes Screening [facility] Start: 06-30-2026 Diabetes Screening Diabetes Screening [facility] Start: 06-12-2026 Diabetes Screening Diabetes Screening [facility] Start: 06-10-2026 Diabetes Screening Diabetes Screening [facility] Start: 06-07-2026 Diabetes Screening Diabetes Screening [facility] Start: 05-25-2026 Diabetes Screening Diabetes Screening [facility] Start: 05-22-2026 Diabetes Screening Diabetes Screening [facility] Start: 05-11-2026 Diabetes Screening Diabetes Screening [facility] Start: 01-18-2026 Diabetes Screening Diabetes Screening [facility] Start: 12-20-2025 Screening for osteoporosis Bone Density Screening [facility] Start: 11-28-2025 Depression Screening Depression Screening [facility] Start: 11-28-2025 Echocardiography Echocardiogram [facility] Start: 10-31-2025 Creatinine measurement Creatinine Level [facility] Start: 10-31-2025 Diabetes: Estimated Glomerular Filtration Rate for Kidney Health Diabetes: Estimated Glomerular Filtration Rate for Kidney Health [facility] Start: 10-31-2025 Potassium measurement Potassium Level [facility] Start: 10-24-2025 Creatinine measurement Creatinine Level [facility] Start: 10-24-2025 Echocardiography Echocardiogram [facility] Start: 10-24-2025 Potassium measurement Potassium Level [facility] Start: 10-23-2025 Creatinine measurement Creatinine Level [facility] Start: 10-23-2025 Echocardiography Echocardiogram [facility] Start: 10-23-2025 Potassium measurement Potassium Level [facility] Start: 01-31-2025 Creatinine measurement Serum Creatinine [facility] Start: 01-31-2025 Hepatitis B surface antibody level LDL Cholesterol [facility] Start: 01-22-2025 Annual PCP Team Chronic Disease Visit Annual PCP Team Chronic Disease Visit [facility] Start: 01-22-2025 Anxiety Screening Anxiety Screening [facility] Start: 01-22-2025 Depression Screening Depression Screening [facility] Start: 01-22-2025 End: 01-22-2025 Patient encounter procedure 01/22/2025 8:40 AM EST Office Visit [facility] [address] [place] [address] Amos Floyd MD [address] [place] [address] Annual Medicare Wellness w/6 month follow-up [facility] Comment on above: Annual Medicare Wellness w/6 month follo w-up Start: 01-13-2025 End: 04-14-2025 Comprehensive metabolic 2000 panel - Serum or Plasma COMPREHENSIVE METABOLIC PANEL Lab Routine Pure hypercholesterolemia Expected: 01/13/2025, Expires: 04/14/2025 [facility] Work Phone: Comment on above: Expected: 01/13/2025, Expires: Start: 01-13-2025 End: 04-14-2025 Lipid 1996 panel - Serum or Plasma LIPID PANEL, FASTING Lab Routine Pure hypercholesterolemia Expected: 01/13/2025, Expires: 04/14/2025 [facility] Comment on above: Expected: 01/13/2025, Expires: Start: 01-13-2025 End: 01-13-2025 Nursing evaluation of patient and report 01/13/2025 9:00 AM EST Nurse Visit [facility] [address] [place] [address] Nurse, Nv [address] [place], [place] [address] [facility] Comment on above: [facility] Start: 01-01-2025 End: 01-01-2025 Patient encounter procedure 01/01/2025 10:30 AM EST Office Visit [facility] [place] [address] [place] [id number] Jefferson Adorno MD [address] [place] [address] [facility] [place] Start: 11-28-2024 End: 11-28-2025 Basic metabolic 1998 panel - Serum or Plasma Basic metabolic panel Lab Routine S/P TAVR (transcatheter aortic valve replacement) Expected: 11/28/2024 (Approximate), Expires: 11/28/2025 [employer] [facility] Work Phone: Comment on above: Expected: 11/28/2024 (Approximate), Expi res: 11/28/2025 Start: 11-28-2024 End: 11-28-2024 Patient encounter procedure [facility] [address] [facility]In[facility] Start: 11-23-2024 End: 10-24-2026 US Heart Transthoracic Transthoracic echocardiogram (TTE) complete with contrast, bubble, strain, and 3D PRN CV Echocardiography Routine Severe aortic stenosis Expected: 11/23/2024 (Approximate), Expires: 10/24/2026 [facility] [facility] Work Phone: Comment on above: Expected: 11/23/2024 (Approximate), Expi res: 10/24/2026 Start: 11-14-2024 End: 11-14-2024 Evaluation of diagnostic study results [facility] Start: 11-10-2024 Creatinine measurement Serum Creatinine [facility] Start: 10-31-2024 End: 10-31-2024 Patient encounter procedure 10/31/2024 11:00 AM EDT Office Visit [facility] [place] [address] [place] [phone] Basim Joel, MANAGER TRACK - DESIGN ENGINEER PRODUCTS [address] [place] [address] [facility] [place] Start: 10-29-2024 End: 10-29-2024 Patient encounter procedure 10/29/2024 10:40 AM EDT Office Visit [facility] [address] [place] [address] Amos Floyd MD [address] [place] [address] 2 month follow-up [facility] Comment on above: 2 month follow-up Start: 10-23-2024 End: 10-23-2024 Patient encounter procedure 10/23/2024 9:00 AM EDT Office Visit [facility] [place] [address] [place] [phone] Noble Chowdary MD [address] [place] [address] juanis bonilla [facility] [place] Comment on above: juanis bonilla Start: 10-23-2024 End: 10-23-2024 Admission to same day surgery center 10/23/2024 7:30 AM EDT - 10/23/2024 9:15 AM EDT Surgery [facility] OR [address] [place] [address] Memo Canas MD [address] [facility] [address] [place] [address] TRANSCATHETER AORTIC VALVE REPLACEMENT, TRANSTHORACIC ECHOCARDIOGRAM [facility] Comment on above: TRANSCATHETER AORTIC VALVE REPLACEMENT, TRANSTHORACIC ECHOCARDIOGRAM Start: 10-23-2024 End: 10-23-2024 Anesthesia consultation 10/23/2024 7:30 AM EDT Anesthesia Event [facility] [address] [place] [address] Ben Harris, MANAGER TRACK - MOLDER SHOULDER PAD [address] [facility] [address] [place] [address] [facility] Start: 10-23-2024 Subsequent hospital visit by physician [facility] Comment on above: Severe aortic stenosis Start: 10-23-2024 End: 10-23-2024 TRANSCATHETER AORTIC VALVE REPLACEMENT (TAVR) - OR TRANSCATHETER AORTIC VALVE REPLACEMENT (TAVR) - OR Severe aortic stenosis 10/23/2024 7:30 AM EDT [facility] Start: 10-21-2024 Influenza vaccination Influenza Vaccine (#1) [facility] Start: 10-14-2024 End: 10-14-2025 Basic metabolic 1998 panel - Serum or Plasma Basic metabolic panel Lab Routine Severe aortic stenosis Expected: 10/14/2024 (Approximate), Expires: 10/14/2025 [facility] [facility] Work Phone: Comment on above: Expected: 10/14/2024 (Approximate), Expi res: 10/14/2025 Start: 10-14-2024 End: 10-14-2025 CBC panel - Blood by Automated count CBC Lab Routine Severe aortic stenosis Expected: 10/14/2024 (Approximate), Expires: 10/14/2025 [facility] Comment on above: Expected: 10/14/2024 (Approximate), Expi res: 10/14/2025 Start: 10-02-2024 End: 10-02-2025 Basic metabolic 1997 panel - Serum or Plasma Basic metabolic panel Lab Routine Renal insufficiency Expected: 10/02/2024 (Approximate), Expires: 10/02/2025 [facility] Work Phone: Comment on above: Expected: 10/02/2024 (Approximate), Expi res: 10/02/2025 Start: 09-26-2024 End: 09-26-2024 Patient encounter procedure 09/26/2024 1:45 PM EDT Appointment Radiology [address] [place], [place] [address] Recurrent UTI [N39.0]; History of kidney stones [Z87.442] Radiology Comment on above: Recurrent UTI [N39.0]; History of kidney stones [Z87.442] Start: 09-19-2024 End: 09-19-2025 Basic metabolic 1997 panel - Serum or Plasma Basic metabolic panel Lab Routine Aortic valve stenosis, etiology of cardiac valve disease unspecified Expected: 09/19/2024 (Approximate), Expires: 09/19/2025 [facility] Work Phone: Comment on above: Expected: 09/19/2024 (Approximate), Expi res: 09/19/2025 Start: 09-19-2024 End: 09-19-2024 Patient encounter procedure [facility] [address] Start: 09-18-2024 End: 09-03-2025 CBC W Auto Differential panel - Blood CBC auto differential Lab Routine Nonrheumatic aortic valve stenosis Expected: 09/18/2024 (Approximate), Expires: 09/03/2025 [facility] Work Phone: Comment on above: Expected: 09/18/2024 (Approximate), Expi res: 09/03/2025 Start: 09-10-2024 End: 09-03-2025 Basic metabolic 1997 panel - Serum or Plasma Basic metabolic panel Lab Routine Nonrheumatic aortic valve stenosis Expected: 09/10/2024 (Approximate), Expires: 09/03/2025 [facility] Comment on above: Expected: 09/10/2024 (Approximate), Expi res: 09/03/2025 Start: 09-03-2024 End: 09-03-2025 CT Chest WO and CT angiogram Coronary arteries W contrast IV CTA Angiogram TAVR Imaging Routine Nonrheumatic aortic valve stenosis Expected: 09/03/2024, Expires: 09/03/2025 [facility] Work Phone: Comment on above: Expected: 09/03/2024, Expires: Start: 08-30-2024 Creatinine measurement Serum Creatinine [facility] Start: 08-29-2024 End: 08-29-2024 Patient encounter procedure 08/29/2024 10:40 AM EDT Office Visit [facility] [address] [place], [place] [address] Amos Floyd MD [address] [place] [address] 2 week follow-up [facility] Comment on above: 2 week follow-up Start: 08-10-2024 Annual PCP Team Chronic Disease Visit Annual PCP Team Chronic Disease Visit [facility] Start: 08-09-2024 Patient discharge [facility] Start: 08-07-2024 Following clinical pathway protocol [facility] Start: 08-07-2024 Cardiac monitoring [facility] Start: 08-07-2024 Catheterization of vein [facility] Start: 08-07-2024 Notification of physician [facility] Start: 08-07-2024 Vital signs measurements [facility] Start: 08-07-2024 [facility] Start: 08-07-2024 CT Abdomen and Pelvis WO contrast [facility] Start: 08-07-2024 CT of abdomen and pelvis without contrast Abdomen/Pelvis without Cont [facility] Start: 08-07-2024 Measurement of occult blood in stool specimen using immunoassay [facility] Start: 08-07-2024 Admission procedure [facility] Start: 08-07-2024 Hospital admission, emergency, from emergency room, medical nature [facility] Start: 08-07-2024 [facility] Start: 08-07-2024 End: 08-07-2024 [facility] Start: 08-07-2024 Bacteria identified in Blood by Culture Blood Culture [facility] Start: 08-07-2024 Bacteria identified in Urine by Culture Urine Culture [facility] Start: 08-05-2024 Patient discharge [facility] Start: 07-24-2024 End: 07-24-2024 Patient encounter procedure 07/24/2024 11:00 AM EDT Office Visit [facility] [address] [place] [address] Amos Floyd MD [address] [facility] [place] [address] 6 month follow up [facility] Comment on above: 6 month follow up Start: 07-23-2024 Catheterization of left heart [facility] Start: 07-23-2024 Covid-19 Vaccine ( season) Covid-19 Vaccine () [facility] Start: 07-23-2024 End: 07-23-2024 Evaluation of diagnostic study results [facility] Start: 07-10-2024 End: 07-10-2024 Nursing evaluation of patient and report 07/10/2024 9:15 AM EDT Nurse Visit [facility] [address] [place] [address] Nurse, Nv [address] [place] [address] [facility] Comment on above: [facility] Start: 06-30-2024 Creatinine measurement Serum Creatinine [facility] Start: 06-29-2024 Annual PCP Team Chronic Disease Visit Annual PCP Team Chronic Disease Visit [facility] Start: 06-12-2024 Complete blood count Hemoglobin/Hematocrit [facility] Start: 06-12-2024 Creatinine measurement Serum Creatinine [facility] Start: 06-11-2024 Complete blood count Hemoglobin/Hematocrit [facility] Start: 06-11-2024 Creatinine measurement Serum Creatinine [facility] Start: 06-07-2024 Complete blood count Hemoglobin/Hematocrit [facility] Start: 06-07-2024 Creatinine measurement Serum Creatinine [facility] Start: 05-30-2024 Annual PCP Team Chronic Disease Visit Annual PCP Team Chronic Disease Visit [facility] Start: 05-25-2024 Complete blood count Hemoglobin/Hematocrit [facility] Start: 05-25-2024 Creatinine measurement Serum Creatinine [facility] Start: 05-22-2024 Annual PCP Team Chronic Disease Visit Annual PCP Team Chronic Disease Visit [facility] Start: 05-22-2024 Creatinine measurement Serum Creatinine [facility] Start: 05-11-2024 Creatinine measurement Serum Creatinine [facility] Start: 05-11-2024 DIABETES SCREEN DIABETES SCREEN [facility] Start: 05-11-2024 Diabetes Screening Diabetes Screening [facility] Start: 03-22-2024 Annual PCP Team Chronic Disease Visit Annual PCP Team Chronic Disease Visit [facility] Start: 03-22-2024 BP Controlled (<130/80) BP Controlled (<130/80) [facility] Start: 02-21-2024 Advance Directive Discussion Advance Directive Discussion [facility] Start: 02-21-2024 Medicare Advantage Annual Wellness Visit Medicare Advantage Annual Wellness Visit [facility] Start: 02-01-2024 End: 02-01-2024 Patient encounter procedure 02/01/2024 10:40 AM EST Appointment [facility] [address] [place] [address] Nodule of lower lobe of right lung [R91.1] [facility] Comment on above: Nodule of lower lobe of right lung [R91. 1] Start: 01-24-2024 End: 04-24-2024 Basic metabolic 2000 panel - Serum or Plasma BASIC METABOLIC PANEL Lab Routine Stage 3b chronic kidney disease (HCC) Expected: 01/24/2024, Expires: 04/24/2024 [facility] Work Phone: Comment on above: Expected: 01/24/2024, Expires: Start: 01-24-2024 End: 04-24-2024 Lipid 1996 panel - Serum or Plasma LIPID PANEL BASIC Lab Routine Pure hypercholesterolemia Expected: 01/24/2024, Expires: 04/24/2024 [facility] Comment on above: Expected: 01/24/2024, Expires: Start: 01-23-2024 End: 01-23-2024 Patient encounter procedure 01/23/2024 9:40 AM EST Office Visit [facility] [address] [place] [address] Amos Floyd MD [address] [place] [address] Medicare Wellness [facility] Comment on above: Medicare Wellness Start: 01-20-2024 Annual PCP Team Chronic Disease Visit Annual PCP Team Chronic Disease Visit [facility] Start: 01-20-2024 BP Controlled (<130/80) BP Controlled (<130/80) [facility] Start: 01-19-2024 Complete blood count Hemoglobin/Hematocrit [facility] Start: 01-19-2024 Creatinine measurement Serum Creatinine [facility] Start: 01-19-2024 Hemoglobin/Hematocrit Hemoglobin/Hematocrit [facility] Start: 01-19-2024 Hepatitis B surface antibody level LDL Cholesterol [facility] Start: 01-19-2024 Serum Creatinine Serum Creatinine [facility] Start: 01-11-2024 End: 01-11-2024 Nursing evaluation of patient and report 01/11/2024 2:00 PM EST Nurse Visit [facility] [address] [place] [address] Nurse, Nv [address] [place] [address] prolia injection already approved. [facility] Comment on above: prolia injection already approved. Start: 12-29-2023 End: 12-29-2023 Patient encounter procedure 12/29/2023 9:30 AM EST Radiology [facility] [address] [place] [address] Actionable Findings Phone Call [facility] Comment on above: Actionable Findings Phone Call Start: 10-27-2023 ANNUAL PCP TEAM CHRONIC DISEASE VISIT ANNUAL PCP TEAM CHRONIC DISEASE VISIT [facility] Start: 10-27-2023 BP CONTROLLED (<130/80) BP CONTROLLED (<130/80) [facility] in Start: 10-22-2023 Covid-19 Vaccine () Covid-19 Vaccine () [facility] Start: 10-22-2023 Covid-19 Vaccine ( season) Covid-19 Vaccine ( season) [facility] Start: 10-22-2023 Influenza vaccination Influenza Vaccine (#1) [facility] Start: 09-19-2023 End: 09-19-2023 ambulatory 09/19/2023 11:30 AM EDT OT/PT/Speech Visit [facility] [address] [place] [address] Kole El, PT [address] [place] [address] Physical deconditioning [R53.81]; Muscle weakness [M62.81]; Gait abnormality [R26.9] [facility] Comment on above: Physical deconditioning [R53.81]; Muscle weakness [M62.81]; Gait abnormality [R26.9] Start: 09-12-2023 End: 09-12-2023 ambulatory 09/12/2023 11:30 AM EDT OT/PT/Speech Visit [facility] [address] [place] [address] Kole El, PT [address] [place] [address] Physical deconditioning [R53.81]; Muscle weakness [M62.81]; Gait abnormality [R26.9] [facility] Comment on above: Physical deconditioning [R53.81]; Muscle weakness [M62.81]; Gait abnormality [R26.9] Start: 09-08-2023 End: 09-08-2023 ambulatory 09/08/2023 2:30 PM EDT OT/PT/Speech Visit [facility] [address] [facility] [place] [address] Kole El, PT [address] [place] [address] Physical deconditioning [R53.81]; Muscle weakness [M62.81]; Gait abnormality [R26.9] [facility] Comment on above: Physical deconditioning [R53.81]; Muscle weakness [M62.81]; Gait abnormality [R26.9] Start: 09-05-2023 End: 09-05-2023 ambulatory 09/05/2023 3:00 PM EDT OT/PT/Speech Visit [facility] [address] [facility] [place] [address] Kole El, PT [address] [place] [address] Physical deconditioning [R53.81]; Muscle weakness [M62.81]; Gait abnormality [R26.9] [facility] Comment on above: Physical deconditioning [R53.81]; Muscle weakness [M62.81]; Gait abnormality [R26.9] Start: 08-30-2023 End: 08-30-2023 ambulatory 08/30/2023 3:00 PM EDT OT/PT/Speech Visit [facility] [address] [facility] [place] [address] Kole El, PT [address] [place] [address] Physical deconditioning [R53.81]; Muscle weakness [M62.81]; Gait abnormality [R26.9] [facility] Comment on above: Physical deconditioning [R53.81]; Muscle weakness [M62.81]; Gait abnormality [R26.9] Start: 08-21-2023 End: 08-21-2023 ambulatory 08/21/2023 11:45 AM EDT OT/PT/Speech Visit [facility] [address] [facility] [place] [address] Gisel Frost, TRACK INSPECTOR [address] [place] [address] Physical deconditioning [R53.81]; Muscle weakness [M62.81]; Gait abnormality [R26.9] [facility] Comment on above: Physical deconditioning [R53.81]; Muscle weakness [M62.81]; Gait abnormality [R26.9] Start: 08-15-2023 End: 08-15-2023 Patient encounter procedure 08/15/2023 3:30 PM EDT Office Visit [facility] [address] [place] [phone] Chastity Lkue, MANAGER TRACK.DESIGN ENGINEER PRODUCTS [address] [place] [address] Hospital Follow up, elsi. [facility] Comment on above: Hospital Follow up, elsi. Start: 08-11-2023 End: 08-11-2023 Patient encounter procedure 08/11/2023 10:40 AM EDT Office Visit [facility] [address] [place] [address] Amos Floyd MD [address] [place] [address] 6 week follow-up [facility] Comment on above: 6 week follow-up Start: 08-09-2023 End: 08-09-2023 ambulatory 08/09/2023 9:15 AM EDT OT/PT/Speech Visit [facility] [address] [place] [address] Kole El, PT [address] [place] [address] R26.9 (ICD-10-CM) - Gait abnormality [facility] Comment on above: R26.9 (ICD-10-CM) - Gait abnormality Start: 08-02-2023 End: 08-02-2023 ambulatory [facility] Comment on above: R26.9 (ICD-10-CM) - Gait abnormality Start: 07-26-2023 End: 07-26-2023 ambulatory [facility] Comment on above: R26.9 (ICD-10-CM) - Gait abnormality Start: 07-21-2023 ANNUAL PCP TEAM CHRONIC DISEASE VISIT ANNUAL PCP TEAM CHRONIC DISEASE VISIT [facility] Start: 07-21-2023 BP CONTROLLED (<130/80) BP CONTROLLED (<130/80) [facility] Start: 07-20-2023 End: 07-20-2023 Patient encounter procedure 07/20/2023 1:40 PM EDT Office Visit [facility] [address] [place] [address] Amos Floyd MD [address] [place] [address] 6 month follow-up [facility] Comment on above: 6 month follow-up Start: 07-19-2023 End: 07-19-2023 ambulatory 07/19/2023 9:00 AM EDT OT/PT/Speech Visit [facility] [address] [place] [address] Kole El, PT [address] [place], [place] [address] R26.9 (ICD-10-CM) - Gait abnormality [facility] Comment on above: R26.9 (ICD-10-CM) - Gait abnormality Start: 07-11-2023 End: 07-11-2023 ambulatory 07/11/2023 9:00 AM EDT OT/PT/Speech Visit [facility] [address] [place] [address] Kole El, PT [address] [place], [place] [id number] R26.9 (ICD-10-CM) - Gait abnormality [facility] Comment on above: R26.9 (ICD-10-CM) - Gait abnormality Start: 07-05-2023 End: 07-05-2023 ambulatory 07/05/2023 9:45 AM EDT OT/PT/Speech Visit [facility] [address] [place] [address] Kole El, PT [address] [place] [address] R26.9 (ICD-10-CM) - Gait abnormality [facility] Comment on above: R26.9 (ICD-10-CM) - Gait abnormality Start: 07-01-2023 End: 09-30-2023 25-hydroxyvitamin D3 [Mass/volume] in Serum or Plasma VITAMIN D 25 HYDROXY Lab Routine Hypercalcemia Age-related osteoporosis with current pathological fracture with routine healing Expected: 07/01/2023, Expires: 09/30/2023 [facility] Comment on above: Expected: 07/01/2023, Expires: Start: 07-01-2023 End: 09-30-2023 Calcium.ionized [Moles/volume] in Blood CALCIUM, IONIZED Lab Routine Hypercalcemia Age-related osteoporosis with current pathological fracture with routine healing Expected: 07/01/2023, Expires: 09/30/2023 [facility] Comment on above: Expected: 07/01/2023, Expires: Start: 07-01-2023 End: 09-30-2023 Comprehensive metabolic 2000 panel - Serum or Plasma COMPREHENSIVE METABOLIC PANEL Lab Routine Hypercalcemia Age-related osteoporosis with current pathological fracture with routine healing Expected: 07/01/2023, Expires: 09/30/2023 [facility] Work Phone: Comment on above: Expected: 07/01/2023, Expires: 4 Start: 07-01-2023 End: 09-30-2023 Cortisol [Mass/volume] in Serum or Plasma CORTISOL, SERUM Lab Routine Hypokalemia Adrenal hypofunction (HCC) Expected: 07/01/2023, Expires: 09/30/2023 [facility] Comment on above: Expected: 07/01/2023, Expires: 4 Start: 07-01-2023 End: 09-30-2023 [facility] SEND OUT TST 1 [facility] SEND OUT TST 1 Lab Routine Age-related osteoporosis with current pathological fracture with routine healing Expected: 07/01/2023, Expires: 09/30/2023 [facility] Comment on above: Expected: 07/01/2023, Expires: Start: 07-01-2023 End: 09-30-2023 Parathyrin.intact [Mass/volume] in Serum or Plasma PTH INTACT Lab Routine Hypercalcemia Age-related osteoporosis with current pathological fracture with routine healing Expected: 07/01/2023, Expires: 09/30/2023 [facility] Comment on above: Expected: 07/01/2023, Expires: Start: 07-01-2023 End: 09-30-2023 Phosphate [Mass/volume] in Serum or Plasma PHOSPHORUS INORGANIC Lab Routine Hypercalcemia Age-related osteoporosis with current pathological fracture with routine healing Expected: 07/01/2023, Expires: 09/30/2023 [facility] Comment on above: Expected: 07/01/2023, Expires: Start: 06-30-2023 End: 06-30-2023 Patient encounter procedure 06/30/2023 9:40 AM EDT Office Visit [facility] [address] [place] [address] Amos Floyd MD [address] [place] [address] 1 month follow up [address] Amor [facility] Comment on above: [address] Amor Start: 06-28-2023 End: 06-28-2023 ambulatory 06/28/2023 11:15 AM EDT OT/PT/Speech Visit [facility] [address] [place], [place] [id number] Kole El, PT [address] [place], [place] [address] R26.9 (ICD-10-CM) - Gait abnormality [facility] Comment on above: R26.9 (ICD-10-CM) - Gait abnormality Start: 06-21-2023 End: 06-21-2023 ambulatory 06/21/2023 1:00 PM EDT OT/PT/Speech Visit [facility] [address] [place] [address] Kole El, PT [address] [place] [address] R26.9 (ICD-10-CM) - Gait abnormality [facility] Comment on above: R26.9 (ICD-10-CM) - Gait abnormality Start: 05-23-2023 [facility] Start: 05-23-2023 End: 08-22-2023 Bacteria identified in Urine by Culture [facility] Work Phone: Comment on above: Expected: 05/23/2023, Expires: Start: 05-20-2023 Covid-19 Vaccine () Covid-19 Vaccine () [facility] Start: 05-15-2023 [facility] Start: 02-20-2023 Advance Directive Discussion Advance Directive Discussion [facility] Start: 02-20-2023 Behavioral Health Screening Behavioral Health Screening [facility] Start: 02-20-2023 Depression Assessment Depression Assessment [facility] Start: 01-06-2023 Hepatitis B surface antibody level LDL CHOLESTEROL [facility] Start: 12-21-2022 End: 02-20-2023 CBC panel - Blood by Automated count CBC Lab Routine Primary hypertension Stage 3b chronic kidney disease (HCC) Expected: 12/21/2022 (Approximate), Expires: 02/20/2023 [facility] Work Phone: Comment on above: Expected: 12/21/2022 (Approximate), Expi res: 02/20/2023 Start: 12-21-2022 End: 02-20-2023 Comprehensive metabolic 2000 panel - Serum or Plasma COMP METABOLIC PANEL Lab Routine Pure hypercholesterolemia Primary hypertension Expected: 12/21/2022 (Approximate), Expires: 02/20/2023 [facility] Work Phone: Comment on above: Expected: 12/21/2022 (Approximate), Expi res: 02/20/2023 Start: 12-21-2022 End: 02-20-2023 Lipid 1996 panel - Serum or Plasma LIPID PANEL BASIC Lab Routine Pure hypercholesterolemia Expected: 12/21/2022 (Approximate), Expires: 02/20/2023 [facility] Work Phone: Comment on above: Expected: 12/21/2022 (Approximate), Expi res: 02/20/2023 Start: 12-20-2022 ANNUAL PCP TEAM CHRONIC DISEASE VISIT ANNUAL PCP TEAM CHRONIC DISEASE VISIT [facility] Start: 12-06-2022 ANNUAL PCP TEAM CHRONIC DISEASE VISIT ANNUAL PCP TEAM CHRONIC DISEASE VISIT [facility] Start: 10-21-2022 Covid-19 Vaccine () Covid-19 Vaccine () [facility] Start: 10-21-2022 Influenza vaccination INFLUENZA (#1) [facility] Start: 07-20-2022 ANNUAL PCP TEAM CHRONIC DISEASE VISIT ANNUAL PCP TEAM CHRONIC DISEASE VISIT [facility] Start: 07-20-2022 BP CONTROLLED (<130/80) BP CONTROLLED (<130/80) [facility] Start: 05-11-2022 SERUM CREATININE SERUM CREATININE [facility] Start: 04-19-2022 COVID-19 VACCINE (6 - Pfizer series) COVID-19 VACCINE (6 - Pfizer series) [facility] Start: 02-20-2022 ADVANCE DIRECTIVE DISCUSSION ADVANCE DIRECTIVE DISCUSSION [facility] Start: 02-20-2022 DEPRESSION ASSESSMENT DEPRESSION ASSESSMENT [facility] Start: 12-20-2021 End: 02-19-2022 Lipid 1996 panel - Serum or Plasma LIPID PANEL BASIC Lab Routine Pure hypercholesterolemia Expected: 12/20/2021, Expires: 02/19/2022 [facility] Work Phone: Comment on above: Expected: 12/20/2021, Expires: Start: 11-20-2021 Prothrombin time [facility] Work Phone: Start: 11-19-2021 Prothrombin time [facility] Work Phone: Start: 11-18-2021 Partial thromboplastin time, activated [facility] Work Phone: Start: 11-18-2021 Patient discharge [facility] Work Phone: Start: 11-18-2021 Care planning and problem solving actions [facility] Work Phone: Start: 11-18-2021 Prothrombin time [facility] Work Phone: Start: 11-17-2021 End: 11-17-2021 Following clinical pathway protocol [facility] Work Phone: Start: 11-17-2021 Referral to service [facility] Work Phone: Start: 11-17-2021 Assessment of risk of venous thromboembolism [facility] Work Phone: Start: 11-17-2021 Consultation [facility] Work Phone: Start: 11-17-2021 Continuous pulse oximetry [facility] Work Phone: Start: 11-17-2021 Insertion of catheter into peripheral vein [facility] Work Phone: Start: 11-17-2021 Measuring intake and output [facility] Work Phone: Start: 11-17-2021 Providing care according to standard [facility] Work Phone: Start: 11-17-2021 Vital signs measurements [facility] Work Phone: Start: 11-17-2021 End: 11-17-2021 [facility] Work Phone: Start: 11-17-2021 Verification routine [facility] Work Phone: Start: 11-17-2021 Admission procedure [facility] Work Phone: Start: 11-17-2021 Blood chemistry [facility] Work Phone: Start: 11-17-2021 Patient referral to dietitian [facility] Work Phone: Start: 11-16-2021 [facility] Work Phone: Start: 11-16-2021 End: 11-16-2021 Blood culture [facility] Work Phone: Start: 10-21-2021 Influenza vaccination INFLUENZA (#1) [facility] Start: 10-13-2021 End: 10-27-2021 Influenza virus A and B RNA and SARS-CoV-2 (COVID-19) N gene panel - Respiratory specimen by NAN with probe detection COVID WITH FLUA+B, ROUTINE Microbiology Routine Suspected COVID-19 virus infection Expected: 10/13/2021, Expires: 10/27/2021 [facility] Work Phone: Comment on above: Expected: 10/13/2021, Expires: Start: 10-08-2021 Screening for osteoporosis Bone Density Screening [facility] Start: 09-14-2021 COVID-19 VACCINE (5 - Booster for Pfizer series) COVID-19 VACCINE (5 - Booster for Pfizer series) [facility] Start: 07-28-2021 Adult depression screening assessment DEPRESSION SCREENING [facility] Start: 06-09-2021 Hepatitis B surface antibody level LDL CHOLESTEROL [facility] Start: 05-11-2021 HEMOGLOBIN/HEMATOCRIT HEMOGLOBIN/HEMATOCRIT [facility] Start: 02-20-2021 ADVANCE DIRECTIVE DISCUSSION [facility] Start: 02-20-2021 DEPRESSION ASSESSMENT DEPRESSION ASSESSMENT [facility] Start: 08-30-2019 BP CONTROLLED (<130/80) BP CONTROLLED (<130/80) [facility] in Start: 03-07-2019 Screening for osteoporosis Bone Density Scan [facility] Start: 2003 RSV Vaccine (1 - 1-dose 60+ series) RSV Vaccine (1 - 1-dose 60+ series) [facility] Start: 1961 Anxiety Screening Anxiety Screening [facility] Start: 1961 Depression Screening Depression Screening [facility] Start: 1961 Diabetes: Urine Albumin-Creatinine Ratio for Kidney Health Diabetes: Urine Albumin-Creatinine Ratio for Kidney Health [facility] Start: 1955 Depression Screening Depression Screening [facility] Start: 1943 Creatinine measurement Creatinine Level [facility] Start: 1943 Echocardiography Echocardiogram [facility] Start: 1943 Lipid panel Lipid Panel [facility] Start: 1943 Medicare Annual Wellness Visit Medicare Annual Wellness Visit (AWV) [facility] Start: 1943 Potassium measurement Potassium Level [facility] Start: 1943 Screening for osteoporosis Bone Density Scan [facility] Anion gap measurement [facility] Work Phone: Bacteria identified in Blood by Culture Blood Culture [facility] Work Phone: Bacteria identified in Urine by Culture BACTERIAL CULTURE, URINE Microbiology Routine Acute cystitis without hematuria 08/14/2024 12:22 PM EDT [facility] Work Phone: Bacteria identified in Urine by Culture BACTERIAL CULTURE, URINE Microbiology Routine History of UTI 08/29/2024 11:32 AM EDT [facility] Work Phone: Basic metabolic 2008 panel with ionized calcium - Serum or Plasma [facility] Bilirubin measuremen t, urine [facility] Work Phone: Bilirubin measuremen t, urine [facility] Blood culture [facility] Work Phone: BUN/Creatinine ratio [facility] Work Phone: Calcium [Mass/volume ] in Serum or Plasma [facility] Work Phone: Carbon dioxide, tota l [Moles/volume] in Serum or Plasma [facility] Work Phone: CBC W Auto Different ial panel - Blood [facility] Chloride [Moles/volu me] in Serum or Plasma [facility] Work Phone: Creatinine [Moles/volume] in Serum or Plasma [facility] Work Phone: End: 02-13-2025 CT Chest WO contrast CT CHEST WO IVCON Radiology Routine Nodule of lower lobe of right lung needing follor up CT 1 Occurrences starting 01/15/2024 until 02/13/2025 [facility] Work Phone: Comment on above: 1 Occurrences starting 01/15/2024 until 02/13/2025 CT Chest WO contrast CT CHEST WO IVCON Radiology Routine Nodule of lower lobe of right lung needing follor up CT 02/01/2024 11:20 AM EST [facility] Work Phone: End: 12-29-2024 DXA Skeletal system.axial Views for bone density DXA-AXIAL SKELETON Radiology Routine Age-related osteoporosis with current pathological fracture with routine healing 1 Occurrences starting 11/30/2023 until 12/29/2024 [facility] Work Phone: Comment on above: 1 Occurrences starting 11/30/2023 until 12/29/2024 ECG 12 lead - CLINIC PERFORMED ECG 12 lead - CLINIC PERFORMED CV ECG Routine Aortic valve stenosis, etiology of cardiac valve disease unspecified 09/19/2024 3:16 PM EDT [facility] Work Phone: ECG COMPLETE ECG COMPLETE ECG 10/29/2024 11:31 AM EDT [facility] Electrocardiogram, 12-lead PRN ACS symptoms Electrocardiogram, 12-lead PRN ACS symptoms ECG Routine As needed until discontinued starting 05/24/2023 [facility] Work Phone: Comment on above: As needed until discontinued starting Glucose [Mass/volume ] in Serum or Plasma [facility] Work Phone: Hematocrit [Volume Fraction] of Blood [facility] Work Phone: Hemoglobin [Mass/vol ume] in Blood [facility] Work Phone: Hemoglobin [Presence ] in Urine [facility] Work Phone: Hemoglobin [Presence ] in Urine [facility] INR in Blood by Coagulation assay [facility] Work Phone: Lactic acid measurement [facility] Leukocytes [#/volume ] in Blood [facility] Work Phone: Mean corpuscular hemoglobin concentration determination [facility] Work Phone: Mean corpuscular hemoglobin determination [facility] Work Phone: Measurement of keton es in urine using dipstick [facility] Work Phone: Measurement of keton es in urine using dipstick [facility] Measurement of renal function [facility] Work Phone: Microscopic urinalysis [facility] Work Phone: Microscopic urinalysis [facility] Neutrophil count [facility] Work Phone: Neutrophil percent differential count [facility] Work Phone: Organism count, microscopic method [facility] End: 05-24-2023 Parathyrin related protein [Moles/volume] in Serum or Plasma [facility] Work Phone: Comment on above: Once (Lab) for 1 Occurrences starting until 05/24/2023 End: 05-25-2023 Parathyrin related protein [Moles/volume] in Serum or Plasma PTH-Related Peptide Lab Routine Once (Lab) for 1 Occurrences starting 05/25/2023 until 05/25/2023 [facility] Work Phone: Comment on above: Once (Lab) for 1 Occurrences starting until 05/25/2023 Partial thromboplast in time, activated [facility] Work Phone: Partial thromboplast in time, activated [facility] Patient Education Hypercalcemia [facility] Work Phone: Patient referral [facility] Work Phone: pH of Urine [facility] Work Phone: pH of Urine [facility] Platelets [#/volume] in Blood [facility] Work Phone: Potassium [Moles/vol ume] in Serum or Plasma [facility] Work Phone: Prothrombin time [facility] Work Phone: Prothrombin time [facility] Red blood cell count [facility] Work Phone: Red cell distributio n width determination [facility] Work Phone: End: 01-05-2023 Screening mammography bi 2-view breast inc cad TAE SCREENING Radiology Routine Encounter for screening mammogram for malignant neoplasm of breast 1 Occurrences starting 12/06/2021 until 01/05/2023 [facility] Work Phone: Comment on above: 1 Occurrences starting 12/06/2021 until 01/05/2023 Sodium [Moles/volume ] in Serum or Plasma [facility] Work Phone: Specific gravity of Urine [facility] Work Phone: Specific gravity of Urine [facility] TRANSCATHETER AORTIC VALVE REPLACEMENT (TAVR) TRANSCATHETER AORTIC VALVE REPLACEMENT (TAVR) Severe aortic stenosis [facility] TRANSCATHETER AORTIC VALVE REPLACEMENT (TAVR) - OR TRANSCATHETER AORTIC VALVE REPLACEMENT (TAVR) - OR Severe aortic stenosis [facility] Troponin T.cardiac [Mass/volume] in Serum or Plasma by High sensitivity method [facility] Urea nitrogen [Mass/volume] in Serum or Plasma [facility] Work Phone: End: 05-24-2023 Urinalysis complete panel - Urine Urinalysis with Reflex Microscopic Lab Routine Once (Lab) for 1 Occurrences starting 05/24/2023 until 05/24/2023 [facility] Work Phone: Comment on above: Once (Lab) for 1 Occurrences starting until 05/24/2023 Urinalysis, blood, qualitative [facility] Work Phone: Urine culture [facility] Urine dipstick for glucose [facility] Work Phone: Urine dipstick for glucose [facility] Urine dipstick for leukocyte esterase [facility] Work Phone: Urine dipstick for leukocyte esterase [facility] Urine dipstick for nitrite [facility] Work Phone: Urine dipstick for nitrite [facility] Urine dipstick for protein [facility] Work Phone: Urine dipstick for protein [facility] Urine examination [facility] Work Phone: Urine examination [facility] Urine microscopy: epithelial cells [facility] Work Phone: Urine microscopy: epithelial cells [facility] Urine microscopy: re d [facility] Urine Microscopy: wh ite [facility] Work Phone: Urobilinogen [Presen ce] in Urine [facility] Work Phone: Urobilinogen [Presen ce] in Urine [facility] End: 10-19-2025 US Kidney - bilateral and Urinary bladder US KIDNEY/BLADDER Radiology Routine Recurrent UTI History of kidney stones 1 Occurrences starting 09/19/2024 until 10/19/2025 [facility] Work Phone: Comment on above: 1 Occurrences starting 09/19/2024 until 10/19/2025 Vitamin D, 25-hydrox y measurement [facility] Work Phone: White blood cell count [facility] End: 01-27-2025 XR Chest PA and Lateral XR CHEST 2V FRONTAL/LAT Radiology STAT Abnormal finding of diagnostic imaging 1 Occurrences starting 12/29/2023 until 01/27/2025 [facility] Work Phone: Comment on above: 1 Occurrences starting 12/29/2023 until 01/27/2025 XR Chest PA and Lateral [facility] End: 01-18-2024 XR FOOT GENERAL 3V AP/LAT/OBL RIGHT XR FOOT GENERAL 3V AP/LAT/OBL RIGHT Radiology Routine Closed displaced fracture of fifth metatarsal bone of right foot, initial encounter 1 Occurrences starting 12/19/2022 until 01/18/2024 [facility] Work Phone: Comment on above: 1 Occurrences starting 12/19/2022 until 01/18/2024 XR FOOT GENERAL 3V AP/LAT/OBL RIGHT XR FOOT GENERAL 3V AP/LAT/OBL RIGHT Radiology Routine Closed displaced fracture of fifth metatarsal bone of right foot, initial encounter 01/18/2023 10:52 AM EST [facility] Work Phone: End: 11-25-2023 XR HIP BILATERAL 5V PEL/AP/LAT EACH HIP XR HIP BILATERAL 5V PEL/AP/LAT EACH HIP Radiology Routine Hip pain, unspecified laterality 1 Occurrences starting 10/26/2022 until 11/25/2023 [facility] Work Phone: Comment on above: 1 Occurrences starting 10/26/2022 until 11/25/2023 XR HIP BILATERAL 5V PEL/AP/LAT EACH HIP XR HIP BILATERAL 5V PEL/AP/LAT EACH HIP Radiology Routine Hip pain, unspecified laterality 10/26/2022 2:59 PM EDT [facility] Work Phone: [facility] Immunizations Immunization Date Immunization Notes Care Provider Fa [facility] 10-29-2024 influenza, high dose seasonal, preservative-free Amos Floyd MD Work Phone: [facility] 07-24-2024 COVID-19 vaccine, ag e 12+ yr (PFIZER-BIONTECH COMIRNATY) Amos Floyd MD Work Phone: [facility] 01-23-2024 COVID-19 vaccine, ag e 12+ yr (PFIZER-BIONTECH COMIRNATY) Amos Floyd MD Work Phone: [facility] 01-23-2024 influenza, high dose seasonal, preservative-free Amos Floyd MD Work Phone: [facility] 01-23-2024 influenza virus vacc ine, unspecified formulation Amos Floyd MD Work Phone: [facility] 01-19-2023 COVID-19 vaccine, ag e 12+ yr, season (PFIZER-BIONTECH) Amos Floyd MD Work Phone: [facility] Work Phone: 10-26-2022 influenza (HD-IIV4) vaccine, age 65+ yr, high dose, quadrivalent, PF (FLUZONE HIGH-DOSE) Amos Floyd MD Work Phone: [facility] 10-26-2022 influenza virus vacc ine, unspecified formulation Gisel Frost TRACK INSPECTOR Work Phone: [facility] 12-20-2021 COVID-19 booster vaccine, age 12+ yr, bivalent (PFIZER-BIONTECH) Rocio Older MANAGER TRACK.DES[employer] ENG[employer] Work Phone: [facility] 11-18-2021 influenza, injectabl e, quadrivalent, contains preservative Elisa Mcdonough MD Work Phone: [facility] Work Phone: 11-17-2021 influenza, injectabl e, quadrivalent, preservative free Dr. Amos Floyd Work Phone: [facility] 11-17-2021 influenza, seasonal, injectable Dr. Amos Floyd Work Phone: [facility] 07-20-2021 COVID-19 vaccine, ag e 12+ yr ([employer]-BIONTECH - LOPEZ TOP) Amos Floyd MD Work Phone: [facility] Work Phone: 12-26-2020 SARS-CoV-2, Unspecified Tino Mcdonough MD Work Phone: [facility] Work Phone: 12-09-2020 influenza, injectabl e, quadrivalent, contains preservative Elisa Mcdonough MD Work Phone: [facility] Work Phone: 11-20-2020 influenza, high-dose , quadrivalent vaccine (FLUZONE HIGH DOSE QUADRIVALENT) Amos Floyd MD Work Phone: [facility] Work Phone: 06-19-2020 COVID-19 vaccine, ag e 12+ yr ([employer]-BIONTECH - PURPLE TOP) Amos Floyd MD Work Phone: [facility] Work Phone: 05-26-2020 COVID-19 vaccine, ag e 12+ yr (PFIZER-[employer] - PURPLE TOP) Amos Floyd MD Work Phone: [facility] Work Phone: 02-17-2020 zoster vaccine recombinant Amos Floyd MD Work Phone: [facility] Work Phone: 11-17-2019 influenza, high dose seasonal, preservative-free Amos Floyd MD Work Phone: [facility] 11-17-2019 influenza, high-dose , quadrivalent vaccine (FLUZONE HIGH DOSE QUADRIVALENT) Aoms Floyd MD Work Phone: [facility] Work Phone: 11-17-2019 zoster vaccine recombinant Amos Floyd MD Work Phone: [facility] Work Phone: 11-13-2019 influenza, injectabl e, quadrivalent, contains preservative Elisa Mcdonough MD Work Phone: [facility] Work Phone: 11-11-2019 tetanus toxoid, redu rk diphtheria toxoid, and acellular pertussis vaccine, adsorbed Dr. Amos Floyd Work Phone: [facility] 11-08-[address] Amos Floyd Work Phone: [facility] 11-08-2019 influenza, seasonal, injectable, preservative free Elisa Mcdonough MD Work Phone: [facility] Work Phone: 12-10-2018 influenza, high dose seasonal, preservative-free Amos Floyd MD Work Phone: [facility] Work Phone: 10-21-2018 influenza, injectabl e, quadrivalent, contains preservative Elisa Mcdonough MD Work Phone: [facility] Work Phone: 12-21-2017 pneumococcal vaccine , unspecified formulation Amos Floyd MD Work Phone: [facility] Work Phone: 11-02-2017 influenza, high dose seasonal, preservative-free Amos Floyd MD Work Phone: [facility] Work Phone: 10-27-2015 influenza, seasonal, injectable Amos Floyd MD Work Phone: [facility] 08-19-2015 tetanus and diphther ia toxoids, adsorbed, preservative free, for adult use (5 Lf of tetanus toxoid and 2 Lf of diphtheria toxoid) Amos Floyd MD Work Phone: [facility] 12-03-2014 influenza, high dose seasonal, preservative-free Amos Floyd MD Work Phone: [facility] 10-13-2014 influenza, seasonal, injectable Amos Floyd MD Work Phone: [facility] Work Phone: 10-13-2014 zoster vaccine, live Amos Floyd MD Work Phone: [facility] Work Phone: 03-20-2014 pneumococcal conjuga te vaccine, 13 valent Amos Floyd MD Work Phone: [facility] 11-20-2013 influenza, seasonal, injectable Amos Floyd MD Work Phone: [facility] 11-24-2012 influenza virus vacc ine, unspecified formulation Amos Floyd MD Work Phone: [facility] Work Phone: 11-13-[address] 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 Oniel Floyd Work Phone: [facility] Work Phone: 11-13-2012 pneumococcal vaccine , unspecified formulation Dr. Amos Floyd Work Phone: [facility] 01-06-2012 influenza virus vacc ine, unspecified formulation Amos Floyd MD Work Phone: [facility] Work Phone: 05-03-2009 tuberculin skin test ; purified protein derivative solution, intradermal [facility] [place] Work Phone: [facility] 04-16-2009 novel influenza-H1N1 -09, all formulations Amos Floyd MD Work Phone: [facility] 07-18-2008 pneumococcal polysaccharide vaccine, 23 valent Amos Floyd MD Work Phone: [facility] Work Phone: 01-12-2007 influenza virus vacc ine, unspecified formulation Amos Floyd MD Work Phone: [facility] Work Phone: 12-14-2005 influenza virus vacc ine, unspecified formulation Amos Floyd MD Work Phone: [facility] Work Phone: 04-26-2005 tetanus and diphther ia toxoids, adsorbed, preservative free, for adult use (2 Lf of tetanus toxoid and 2 Lf of diphtheria toxoid) Amos Floyd MD Work Phone: [facility] Payers Date Payer Category Payer Medicare HMO [employer] ember [id number] 2023 Self-pay [id number] 2023 Medicare (Managed Care) [id number]. [id number] 2023 Private Health Insurance [id number] 2017 Medicare HU[employer]NA MEDICARE HU[employer] MEDICARE PPO [id number] 2017-Present [phone] [address] [address] [place] [address] PPO [id number] 2017 Medicare [id number] 2017 Private Health Insurance [id number] 1943 Unknown [id number]. 594 1943 Unknown [id number] 2.16.840.1.129166.3.579.2. 1246 Unknown [id number] 2.16.840.1.716295.3.579.2. 462 Unknown [id number] 2.16.840.1.376576.3.579.2. 462 Unknown [id number] 2.16.840.1.876015.3.579.2. 462 Unknown [id number] 2.16.840.1.212731.3.579.2. 462 Unknown [id number] 2.16.840.1.713627.3.579.2. 462 Unknown [id number] 2.16.840.1.866571.3.579.2. 462 Unknown [id number] 2.16.840.1.998949.3.579.2. 462 Unknown [id number] 2.16.840.1.027101.3.579.2. 462 Unknown [id number] 2.16.840.1.943308.3.579.2. 462 Unknown [id number] 2.16.840.1.591600.3.579.2. 462 Unknown [id number] 2.16.840.1.920350.3.579.2. 462 Unknown [id number] 2.840.1.382989.3.579.2. 462 Unknown [id number] 2..840.1.355385.3.579.2. 462 Unknown [id number] 2.840.1.239327.3.579.2. 462 Unknown [id number] 2.840.1.614404.3.579.2. 462 Unknown [id number] 2.16840.1.024140.3.579.2. 462 Unknown [id number] 2.840.1.612868.3.579.2. 462 Unknown [id number] 2.16.840.1.994624.3.579.2. 462 Unknown [id number] 2.16.840.1.996525.3.579.2. 462 Unknown [id number]. 462 Unknown [id number] 2.16.840.1.119466.3.579.2. 462 Unknown [id number] 2.16.840.1.359850.3.579.2. 462 Unknown [id number] 2.16.840.1.896102.3.579.2. 462 Unknown [id number] 2.16.840.1.684204.3.579.2. 462 Unknown [id number] 2.16.840.1.441065.3.579.2. 462 Unknown [id number] 2.16.840.1.679389.3.579.2. 462 Unknown [id number] 2.16.840.1.087380.3.579.2. 462 Unknown [id number] 2.16.840.1.254536.3.579.2. 462 Unknown [id number] 2.16.840.1.793586.3.579.2. 462 Unknown [id number] 2.16.840.1.396144.3.579.2. 462 Unknown [id number] 2.16.840.1.572947.3.579.2. 462 Unknown [id number] 2.16.840.1.977012.3.579.2. 462 Unknown [id number] 2.16.840.1.334844.3.579.2. 462 Unknown [id number] 2.16.840.1.017193.3.579.2. 462 Social History Date Type Detail Facility Start: 2021 End: 05-23-2023 Tobacco smoking status NHIS Unknown if ever smoked [facility] Start: 06-20-2020 None [facility] Start: 06-20-2020 Homeless [facility] Start: 06-20-2020 Secondhand [facility] Start: 1945 Sex Assigned At Female W [facility] Start: 10-13-2021 End: 09-02-2024 Tobacco smoking status NHIS Never smoked tobacco [facility] Work Phone: Start: 07-20-2021 End: 09-19-2024 Alcohol intake Current non-drinker of alcohol (finding) [facility] Start: 1945 Sex Assigned At Not on file C [facility] Start: 07-10-2021 End: 05-24-2023 Exposure to SARS-CoV-2 (event) Not sure [facility] Work Phone: Start: 10-13-2021 End: 09-02-2024 Tobacco use and exposure Smokeless tobacco non-user [facility] Start: 07-20-2022 End: 11-28-2024 History of Social function [facility] Work Phone: Start: 07-20-2022 End: 11-28-2024 Tobacco use panel [facility] Work Phone: Start: 01-22-2012 Adult Depression Screening Assessment 0 [facility] Work Phone: How often to you hav e a drink containing alcohol? Never [facility] Work Phone: How hard is it for y ou to pay for the very basics like food, housing, medical care, and heating Not very hard [facility] Work Phone: In the past 12 month s, was there a time when you were not able to pay the mortgage or rent on time? No [facility] Work Phone: (I/We) worried naomi er (my/our) food would run out before (I/we) got money to buy more. Never true [facility] Start: 09-20-2021 End: 05-20-2024 Sex Female (finding) [facility] Start: 09-03-2024 End: 11-28-2024 Alcoholic beverage intake Lifetime non-drinker (finding) [facility] Procedure Code Equipment Code Equipment Origin al Text Equipment Identifier Dates Valve Aor Phong 3 Ultra 23mm - [id number] - [id number] Start: 10-23-2024 Device Closure Perclose 6fr - [id number] Start: 10-23-2024 Device Closure Perclose 6fr - [id number] Start: 10-23-2024 Device Closure Vascade 6/7fr - [id number] Start: 10-23-2024 Comment on above: Description: Placed in right IJ Goals Date Patient Goal Desired Activity /State Personal health goal Functional Status Date Assessment Result Facility 11-28-2024 Patient Health [facility] ionnaire 2 item (PHQ-2) [Reported] [facility] 08-09-2024 Functional status Chair [facility] Work Phone: 06-13-2023 Are you deaf, or do you have serious difficulty hearing No 06/13/2023 12:43 PM Elizabeth Rolle RN No [facility] 06-13-2023 Are you blind, or do you have serious difficulty seeing, even when wearing glasses No 06/13/2023 12:43 PM Elizabeth Rolle RN [facility] 06-13-2023 Do you have serious difficulty walking or climbing stairs No 06/13/2023 12:43 PM Elizabeth Rolle RN [facility] 06-13-2023 Do you have difficul ty dressing or bathing No 06/13/2023 12:43 PM Elizabeth Rolle RN [facility] 06-13-2023 Because of a physica l, mental, or emotional condition, do you have difficulty doing errands alone such as visiting a physician's office or shopping No 06/13/2023 12:43 PM Elizabeth Rolle RN [facility] 11-18-2021 Functional status Ambulates [facility] Work Phone: 11-17-2021 Functional status Bedrest [facility] Work Phone: Mental Status Date Assessment Result Facility 08-09-2024 Cognitive function Voice/Name [facility] Work Phone: 08-07-2024 Cognitive function Level Of Cons ciousness Awake;Alert;Appropriate;Fol lows Commands [facility] Work Phone: 06-13-2023 Because of a physica l, mental, or emotional condition, do you have serious difficulty concentrating, remembering, or making decisions No 06/13/2023 12:43 PM Elizabeth Rolle RN No [facility] 05-31-2023 Cognitive function Voice/Name [facility] Work Phone: 05-23-2023 Cognitive function Level Of Cons ciousness Awake;Alert;Appropriate [facility] Work Phone: 05-15-2023 Cognitive function Level Of Cons ciousness Awake;Alert;Appropriate;Fol lows Commands [facility] Work Phone: 11-25-2022 Cognitive function Awake;Alert;A ppropriate;Fol lows Commands [facility] Work Phone: 05-27-2022 Cognitive function Awake;Alert;A ppropriate;Fol lows Commands [facility] Work Phone: 11-26-2021 Cognitive function Awake;Alert;A ppropriate;Fol lows Commands [facility] Work Phone: 11-18-2021 Cognitive function Voice/Name;To uch/Shaking;Li ght Pain;Deep Pain [facility] Work Phone: 11-16-2021 Cognitive function Level Of Cons ciousness Awake;Alert;Appropriate;Fol lows Commands [facility] Work Phone: 05-27-2021 Cognitive function Level Of Cons ciousness Awake;Alert [facility] Work Phone: Clinical Notes 04-20-2009 to 12-28-2024 Basmi Joel APRN [facility] - 11/28/2024 11:00 AM Carito Joel APRN [facility] - 11/28/2024 11:00 AM Carito Joel APRN [facility] - 10/31/2024 11:00 AM EDTPatient Instructions Note Date & Type Note Facility 12-28-2024 Note [facility] 11-28-2024 History of Present illness Narrative Images from the original note were not included. [facility] CARDIOLOG[facility] - [address] [address] Dept: [phone] Dept Visit type: Established : 1945 Reason for Visit: Cardiac Valve Problem Assessment and Plan 1. Chronic systolic heart failure (HCC) Class III. Category C Continue metoprolol. Resume Lisinopril 5 mg daily. I will have her see the heart failure team given her severe LV dysfunction, [place]'s disease, and CKD. She will have a [...] Has appt with nephrology next week 5. [place]'s disease. Maintained on Cortef. Na/K have remained [...] mm Hg). She had an admission at [facility] in July for UTI after heart cath [...] specialty: Independent interpretation of tests: Basim Joel, MANAGER TRACK - [place] [1] Allergies Allergen Reactions Amlodipine [...] Rfl: [3] Past Medical History: Diagnosis Date [place] anemia 2010 [4] Past Surgical History: Procedure Laterality Date BLADDER REPAIR CARDIAC CATHETERIZATION N/A 10/23/2024 Performed by Memo Canas MD at [facility] OR CYSTECTOMY (HISTORICAL) LAPAROSCOPIC NEPHRECTOMY (HISTORICAL) Left TOTAL ABDOMINAL HYSTERECTOMY [5] Family History Problem Relation Name Age of Onset Heart attack Mother Stroke Father documented in this encounter [facility] 11-28-2024 History of Present illness Narrative Images from the original note were not included. [facility] [address] [address] Dept: [phone] Dept Visit type: Established : 1945 Reason for Visit: Cardiac Valve Problem Assessment and Plan 1. Chronic systolic heart failure (HCC) Class III. Stage C Continue metoprolol. Resume Lisinopril 5 mg daily. I will have her see the heart failure team given her severe LV dysfunction, [place]'s disease, and CKD. She will have a [...] Has appt with nephrology next week 5. [place]'s disease. Maintained on Cortef. Na/K have remained stable [address] Adorno- est heart failure Subjective Ms Peralta is an 79 yr old female known to Dr. 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 She had an admission at [facility] in July for UTI after heart cath [...] specialty: Independent interpretation of tests: Basim Joel, MANAGER TRACK - DESIGN [employer]INE[employer] [1] Allergies Allergen Reactions Amlodipine Swelling Ciprofloxacin [...] Rfl: [3] Past Medical History: Diagnosis Date [place] anemia 2010 [4] Past Surgical History: Procedure Laterality Date BLADDER REPAIR CARDIAC CATHETERIZATION N/A 10/23/2024 Performed by Memo Canas MD at [facility] OR CYSTECTOMY (HISTORICAL) LAPAROSCOPIC NEPHRECTOMY (HISTORICAL) Left TOTAL ABDOMINAL HYSTERECTOMY [5] Family History Problem Relation Name Age of Onset Heart attack Mother Stroke Father documented in this encounter [facility] 11-14-2024 Progress note [facility] 10-31-2024 History of Present illness Narrative Images from the original note were not included. [facility] [address] [address] Dept: [phone] Dept Visit type: Established : 1945 Reason for Visit: Cardiac Valve Problem and Hospital Follow-up Assessment and Plan 1. Severe aortic stenosis S/p TAVR. Contiue Eliquis, SBE prophylaxis.Echo one month 2. Stage 3b chronic kidney disease (HCC) Repeat BMP 3. [place]'s disease (HCC) On chronic Cortef 4. Chronic [...] a PMH for CAD, HPL, DVT, PE, [place]'s disease, CKD s/p left nephrectomy (donated) and [...] specialty: Independent interpretation of tests: Basim Joel, LIDIA - DESIGN ENGINEER PRODUCTS [1] Allergies Allergen Reactions Amlodipine Swelling Ciprofloxacin [...] Rfl: [3] Past Medical History: Diagnosis Date [place] anemia 2010 [4] Past Surgical History: Procedure Laterality Date BLADDER REPAIR CARDIAC CATHETERIZATION N/A 10/23/2024 Performed by Memo Canas MD at [facility] OR CYSTECTOMY (HISTORICAL) LAPAROSCOPIC NEPHRECTOMY (HISTORICAL) Left TOTAL ABDOMINAL HYSTERECTOMY [5] Family History Problem Relation Name Age of Onset Heart attack Mother Stroke Father documented in this encounter [facility] 10-31-2024 Instructions LIDIA Patel CNP - 10/31/2024 11:00 AM EDT If weight gain greater than 3lbs/24 hours or > 5lbs in one week. Take 1/2 Lasix (furosemide) documented in this encounter [facility] 10-31-2024 Miscellaneous Notes Addended by: JAQUELIN MONCADA on: 10/31/2024 02:58 PM Modules accepted: Orders documented in this encounter [facility] 10-31-2024 Note Addended by: JAQUELIN CARBONE on: 10/31/2024 02:58 PM Modules accepted: Orders [facility] 10-31-2024 Note Addended by: JAQUELIN CARBONE on: 10/31/2024 02:58 PM Modules accepted: Orders [facility] 10-29-2024 Note HNO ID: [id number] Author: AMOS FLOYD MD Service: ? Author Type: Physician Type: Progress Notes Filed: 10/29/2024 12:03 Note Text: Subjective Linda ePralta is a 79 year old female here with her daughter. 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 She had some fluid retention prior to surgery and was prescribed furosemide 40 mg daily for 3 days with weight loss of around 20 pounds. She started regaining weight and was again advised 2 days of furosemide last week. Echo last week showed EF dropped to 20%. They have another echocardiogram scheduled. She has a follow up with [facility] this , and the [facility] later this month. ACTIVE PROBLEM [...] I35.0 - See #1. Amos Floyd MD [facility] 10-29-2024 History of Present illness Narrative Subjective Linda Peralta is a 79 year old female here with her daughter. 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 She had some fluid retention prior to surgery and was prescribed furosemide 40 mg daily for 3 days with weight loss of around 20 pounds. She started regaining weight and was again advised 2 days of furosemide last week. Echo last week showed EF dropped to 20%. They have another echocardiogram scheduled. She has a follow up with [facility] this , and the [facility] later this month. ACTIVE PROBLEM [...] Amos Floyd MD documented in this encounter [facility] 10-28-2024 Telephone encounter Note Per TVT registry guidelines, 5 meter walk test completed in office on 09/03/24. 7 seconds, 7 seconds, 7 seconds [facility] 10-28-2024 Miscellaneous Notes Per TVT registry guidelines, 5 meter walk test completed in office on 09/03/24. 7 seconds, 7 seconds, 7 seconds Letter refaxed to [phone] along w/ [facility] chart note. Confirmation 10/16/24 at 3:07p Confirmed 10/22/2024 at 3:59p Spoke with Dr. Gregory's office to follow-up on IV hydrocortisone dosing. Did not receive fax from last week, confirmed number of [phone]. Requested patient will need to have telephone visit at [address] Gregory to review instructions. Requested to have OV note and letter re-faxed to the above number. Will provide valve clinic fax number so Dr. Gregory's office can fax recommendations back Approved per fax. Scanned in under [employer]. Approval [id number] Sched on all 3 calendars and requested on [employer]. Pre TAVR phone call placed. Reviewed, procedure, instructions and meds. Pt verbalizes understanding. Pt knows to call [phone] with any concerns. 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 MANAGER TRACK notified to complete prep for proc Diagnosis: Aortic Stenosis Procedure being done: TAVR Date/time of procedure: 10/23/24 at 7:30 am Surgeon: Dr. Canas 2nd surgeon: Dr. Self Admission type: To be admitted Anesthesia: MAC Completed: BMP, CBC, CTA, H&P Date completed: 10/17/24 Additional orders Type and screen AM of proc Labs scanned under Media Requested lab from [facility]. She is faxing them to [facility]. Pending on [employer] using [place] telephone visit from yesterday. Pending# [id number] [facility] and K[facility] chart note faxed to [phone] and confirmed PC to Dr. Gregory office. Requesting fax regarding medication recommendation sent to [phone]. Will discuss with Jo Levy. PC to dr Gregory office. Placed on hold and disconnected. Will try again later. Reviewed plan for bridging with [facility] pharmacist. Patient's CrCl is 31. She advised lovenox 40 mg BID for bridging. -patient will take last dose of Eliquis on 10/19/24 -starting on 10/20/24, patient will start lovenox 40 mg BID -she will take her last dose of lovenox morning of 10/22. -No lovenox the evening of 10/22 or morning of 10/23 Lab order faxed to [facility] [phone]/confirmed I need PB to please finish his chart note so I can submit this auth Spoke with patient, she will have labs drawn tomorrow at [place]. Will have clinical secretary fax lab orders over Reviewed lab work with Butch Gupta APRN, will have patient hold lisinopril until after procedure. Okay to proceed with TAVR, pended case request Spoke with patient verbalized understanding of medication change. Agreed to below procedure date/time. Dx: Severe Aortic stenosis Procedure: TAVR Date/Time: 10/23/24 at 7:30 am Surgeon: Dr. Canas/ Dr. self Location: [facility] Admission: [facility] Anesthesia: DEVANG Levy notified to schedule procedure and obtain insurance auth. Patient scheduled for telephone visit for H&P update and to review bridging instructions 10/16. Reviewed TAVR teach instructions while patient was on the phone. TAVR procedure, instructions reviewed with pt Patient scheduled for TAVR on 10/23/24 at 7:30 am Will report to [facility] by 5:30 am Can park in the [facility] Parking Deck or use [employer] parking at the [facility] entrance Plan on overnight stay [...] for TAVR on 10/23/24. -Reviewed bridging with [facility] pharmacist. Patient current CrCl is 24 [...] with TAVR. BMP results from 10/03/24 at [facility] show creatinine 1.82 with GRF 28. Will have MANAGER TRACK review and place TAVR case request if appropriate documented in this encounter [facility] 10-24-2024 Nurse Note All discharge instructions gone over with pt and family. Med rec revoewed in depth. All restrictions, activity, site care and precautions gone over along with appointments. Saline lock removed. To daughters car via wheelchair, discharged home. [facility] 10-24-2024 Nurse Note All discharge instructions [...] Breakfast. documented in this encounter [facility] 10-24-2024 Note [facility] [address] Dept: [phone] Dept Visit type: Established : 1945 Reason for Visit: Cardiac Valve Problem and Hospital Follow-up Assessment and Plan 1. Severe aortic stenosis S/p TAVR. Contiue Eliquis, SBE prophylaxis.Echo one month 2. Stage 3b chronic kidney disease (HCC) Repeat BMP 3. [place]'s disease (HCC) On chronic Cortef 4. Chronic [...] Rfl: [3] Past Medical History: Diagnosis Date [place] anemia 2010 [4] Past Surgical History: Procedure Laterality Date BLADDER REPAIR CARDIAC CATHETERIZATION N/A 10/23/2024 Performed by Memo Canas MD at [facility] OR CYSTECTOMY (HISTORICAL) LAPAROSCOPIC NEPHRECTOMY (HISTORICAL) Left TOTAL ABDOMINAL HYSTERECTOMY [5] Family History Problem Relation Name Ag (more content not included)... [facility] 10-24-2024 Note Attestation signed by Memo [...] has been made to the [facility] Outpatient Cardiac Rehabilitation Program. (more content not included)... [facility] 10-24-2024 Hospital Discharge instructions LIDIA oMn CNP - 10/24/2024 8:35 AM EDT - Please call the Heart Valve Clinic with any questions: [phone] -You will have have the following follow [...] specified. documented in this encounter [facility] 10-24-2024 History of Present illness Narrative Images from the original note were not included. PHYSICAL THERAPY [facility] Name/MRN: Linda Peralta ([id number]) Date: 10/24/2024 PT orders received per Oniel activity/mobility score. Patient currently with Oniel activity/mobility score greater than 2. Per therapy services guidelines, will discharge PT orders. Please place regular PT eval/treat orders if deemed appropriate. Shea Perez, PT documented in this encounter [facility] 10-24-2024 Nurse Note Pt had a restful night and even got up the the bathroom during the night with standby assist. Pt is up in a chair eating her Breakfast. 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 Unable to discuss Phase II Cardiopulmonary Rehab Referral with Linda Peralta at this time. Will follow to discuss program when appropriate. Patient will be contacted at home if discharged prior to discussion. [id number] NoteReceived referral and reviewed chart. Unable to discuss Phase II Cardiopulmonary Rehab Referral with Linda Peralta at this time. Will follow to discuss program when appropriate. Patient will be contacted at home if discharged prior to discussion. [facility]09-03-2025 Consult note* Juan Alberto Tena - 10/23/2024 12:25 PM EDT Associated Order(s): IP CONSULT TO CARDIAC REHAB Received referral and reviewed chart. Unable to discuss Phase II Cardiopulmonary Rehab Referral with Linda Peralta at this time. Will follow to discuss program when appropriate. Patient will be contacted at home if discharged prior to discussion. documented in this [facility]09-03-2025 NotePatient: Linda Peralta Procedure Summary Date: 10/23/24 Room / Location: [facility] Operating Room Anesthesia Start: 733 Anesthesia Stop: [...] discharged once all PACU criteria has been met.[facility]09-03-2025 NotePatient: Linda Peralta Procedure Summary Date: 10/23/24 Room / Location: [facility] Operating Room Anesthesia Start: 0734 Anesthesia Stop: 931 Procedures: TRANSCATHETER AORTIC VALVE [...] Allowed opportunity for questions and acknowledgement of understanding.[facility]09-03-2025 NoteArterial Line: Date/Time: 10/23/2024 8:35 AM [...] Staffing Performed: Other Other staff: Memo Canas, [facility]09-03-2025 NoteH&P reviewed. The patient was examined and there are no changes to the H&P.[place] [address]-03-2025 NoteH&P reviewed. The patient was examined and there are no changes to the H&P.[place] [address]-03-2025 Procedure note* Op Note - William Self DO - 10/23/2024 7:34 AM EDT CARDIOTHORACIC SURGERY--OPERATIVE NOTE Date: 10/23/24 Preoperative diagnosis: Severe symptomatic aortic stenosis Chronic diastolic congestive heart failure Frailty Postoperative diagnosis: Severe symptomatic aortic stenosis Chronic diastolic congestive heart failure Frailty Surgeon: Rocky Self DO Supervisor Claims: Memo Canas MD Procedure: Transcatheter aortic valve [...] Disposition: Stable to ICU Rocky Self DO [facility] Cardiothoracic Surgery [facility] Phone: 1(762) 809-317209-03-2025 Miscellaneous Notes* Op Note - William Self DO - 10/23/2024 7:34 AM EDT CARDIOTHORACIC SURGERY--OPERATIVE NOTE Date: 10/23/24 Preoperative diagnosis: Severe symptomatic aortic stenosis Chronic diastolic congestive heart failure Frailty Postoperative diagnosis: Severe symptomatic aortic stenosis Chronic diastolic congestive heart failure Frailty Surgeon: Rocky Self DO Supervisor Claims: Memo Canas MD Procedure: Transcatheter aortic valve [...] toleratedthe procedure well. Disposition: Stable to ICU Rokcy Self DO [facility] Cardiothoracic Surgery * Pre-Procedure Note - Jacinda [...] Called for chest X-RAY documented in this [facility]09-03-2025 Evaluation note* Pre- Procedure Note - Jacinda Jackman RN - 10/23/2024 7:[address] Canas contacted about pre-procedure steroid not ordered. No new orders at this time for 0730 case. [facility] [id number] Evaluation note* Pre-Procedure Note - Jacinda Jackman RN - 10/23/2024 6:21 AM EDT X-ray to bedside T [facility] [id number] Evaluation note* Pre-Procedure Note - Jacinda Jackman RN - 10/23/2024 6:03 AM EDT Called for chest X-RAY [facility]09-02-2025 NotePatient: Linda Peralta Procedure Information Date/Time: 10/23/24729 Procedures: TRANSCATHETER AORTIC VALVE REPLACEMENT, TRANSTHORACIC ECHOCARDIOGRAM TRANSCATHETER AORTIC VALVE REPLACEMENT, TRANSTHORACIC ECHOCARDIOGRAM (Chest) Location: [facility] [facility] Operating Room Surgeons: Memo Canas MD; William Self, DO Relevant Problems Cardio (+) ASHD (arteriosclerotic heart [...] Past Medical History: Past Medical History: 2011: Moris anemia Past Surgical History: Past Surgical History: [...] cath under media Goldie Rojas APRN - DESIGN ENGINE[employer] GALA Screening Labs: No results found for: WBC, HGB, HCT, MCV, PLT No results found for: SODIUM, NA, POTASSIUM, K, CHLORIDE, CL, CO2, BUN, CREATININE, GLUCOSE, CALCIUM, PROT, BILIRUBINFL, ALKPHOS, AST, ALT, EGFR, GLOB No echocardiogram results found for the past 14 days 09/19/24 ECG 12-LEAD 09/29/2024 8:05 AM (Final) Narrative Sinus Rhythm -Left atrial enlargement. -Diffuse nonspecific T-abnormality. ABNORMAL Signed by: Memo Canas MD on 09/29/2024 8:05 AM Equipment Requests: Additional Equipment Requests [1] Family History Problem Relation Name Age of Onset Heart attack Mother Stroke [facility]09-02-2025 Telephone encounter Note* Telephone Encounter - Jewels Levy - 10/22/2024 2:51 PM EDT Letter refaxed to [phone] [facility] w/ [facility]. Confirmation 10/16/24 at 3:07p Confirmed 10/22/2024 at 3:59p [facility] [id number] Telephone encounter Note* Telephone Encounter - Desirae Martinez RN - 10/22/2024 10:39 AM EDT Spoke with Dr. Gregory's office to follow-up on IV hydrocortisone dosing. Did not receive fax from last week, confirmed number of [phone]. Requested patient will need to have telephone visit at [address] Grgeory to review instructions. Requested to have OV note and letter re-faxed to the above number. Will provide valve clinic fax number so Dr. Gregory's office can fax recommendations back [facility] [id number] Telephone encounter Note* Telephone Encounter - Jewels Levy - 10/22/2024 9:42 AM EDT Approved per fax. Scanned in under [employer]. Approval [id number] Sched on all 3 calendars and requested on Snapboard. [facility] [id number] History and physical note* Dylon Gupta APRN - [facility] - 10/22/2024 8:32 AM EDT H+ P copied to chart from (office provider's name Dylon Gupta APRN) progress note dated 10/16/24 onbehalf of (procedural physician's name Dr. Canas). [facility] Telehealth Cardiology Note DATE [...] dyspnea with moderate activity. No CAD per [facility]. Weight 156 lbs. Last clinic visit [...] [Medical History] Past Medical History Diagnosis Date [place] anemia 2010 Past Surgical History [Surgical History] [...] redirect to the Timeline version of the [employer] SmartLink. Limited Telehealth exam Constitutional: [x]Alert [x]Oriented [...] or 3b CKD (HCC) CKD followed by softball coach Dr. Tarango in [place]. Most recent BMP showed SCr 1.61 with CrCl 31. 3. Acute deep vein thrombosis (DVT) of right lower extremity, unspecified vein (HCC) Questionable IVC filter. Currently on Eliquis. Per daughter, LE edema has improved. Post TAVR, willrefer patient to Dr. Gaffney-vascular. We reached out to [facility] for recommendations on bridging. Will stop Eliquis [...] a day for 2 days only. 5. [place]'s disease (HCC) Patient is currently taking hydrocortisone (Cortef) 10 mg TID. Will reach out to glue bone crusher Dr. Gregory in [place] ([phone]). for recommendations on IV hydrocortisone prior to [...] patient and provider is done in the [facility] from the [facility] supported by [employer]. Cosigned by Memo Canas MD at 11/01/2024 9:49 PM EDT [employer] [id number] History and physical note* LIDIA Mon CNP - 10/22/2024 8:32 AM EDT H+ P copied to chart from (office provider's name Dylon Gupta APRN) progress note dated 10/16/24 onbehalf of (procedural physician's name Dr. Canas). [facility] Telehealth Cardiology Note DATE of SERVICE: 10/16/24 TIME of SERVICE: 12:45 PM Chief Complaint: Chief Complaint Patient presents with Follow-up History of Present Illness: Linda Peralta is a 79 y.o. female known to Dr. Marte with a history for CAD, HPL, DVT, PE, [place]'s disease, CKD s/p left nephrectomy (donated) and [...] dyspnea with moderate activity. No CAD per [facility]. Weight 156 lbs. Last clinic visit [...] redirect to the Timeline version of the [facility] SmartLink. Limited Telehealth exam Constitutional: [x]Alert [...] or 3b CKD (HCC) CKD followed by softball coach Dr. Tarango in [place]. Most recent BMP showed SCr 1.61 with CrCl 31. 3. Acute deep vein thrombosis (DVT) of right lower extremity, unspecified vein (HCC) Questionable IVC filter. Currently on Eliquis. Per daughter, LE edema has improved. Post TAVR, willrefer patient to Dr. Gaffney-vascular. We reached out to [facility] for recommendations on bridging. Will stop Eliquis [...] 10 mg TID. Will reach out to glue bone crusher Dr. Gregory in [place] ([phone]). for recommendations on IV hydrocortisone prior to [...] patient and provider is done in the [facility] from the [facility] supported by [facility]. Cosigned by Memo Canas MD at 11/01/2024 9:49 PM EDT documented in this [facility]09-02-2025 NoteH+ P copied to chart from (office provider's name Dylon Gupta APRN) progress note dated 10/16/24 on behalf of (procedural physician's name Dr. Canas). [facility] Telehealth Cardiology Note DATE of SERVICE: 10/16/24 TIME of SERVICE: 12:45 PM Chief Complaint: Chief Complaint Patient presents with Follow-up History of Present Illness: Linda Peralta is a 79 y.o. female known to Dr. Marte with a history for CAD, HPL, DVT, PE, [place]'s disease, CKD s/p left nephrectomy (donated) and [...] dyspnea with moderate activity. No CAD per [facility]. Weight 156 lbs. Last clinic visit Telehealth [...] [Medical History] Past Medical History Diagnosis Date [place] anemia 2010 Past Surgical History [Surgical History] [...] redirect to the Timeline version of the [employer] Smart[employer]. Limited Telehealth exam Constitutional: [x]Alert [x]Oriented [...] disease, unspecified whether st (more content not included)...[facility] [employer] [facility] [id number] NoteH+ P copied to chart from (office provider's name Dylon Gupta APRN) progress note dated 10/16/24 on behalf of (procedural physician's name Dr. Canas). [facility] Telehealth Cardiology Note DATE of SERVICE: 10/16/24 TIME of SERVICE: 12:45 PM Chief Complaint: Chief Complaint Patient presents with Follow-up History of Present Illness: Linda Peralta is a 79 y.o. female known to Dr. Marte with a history for CAD, HPL, DVT, PE, [place]'s disease, CKD s/p left nephrectomy (donated) and [...] dyspnea with moderate activity. No CAD per [facility]. Weight 156 lbs. Last clinic visit [...] [Medical History] Past Medical History Diagnosis Date [place] anemia 2010 Past Surgical History [Surgical History] [...] redirect to the Timeline version of the [facility] SmartLink. Limited Telehealth exam Constitutional: [x]Alert [...] disease, unspecified whether st (more content not included)...[facility]08-29-2025 NotePre TAVR phone call placed. Reviewed, procedure, instructions and meds. Pt verbalizes understanding. Pt knows to call [phone] with any concerns. 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 MANAGER TRACK notified to complete prep for proc Diagnosis: Aortic Stenosis Procedure being done: TAVR Date/time of procedure: 10/23/24 at 7:30 am Surgeon: Dr. Canas 2nd surgeon: Dr. Self Admission type: To be admitted Anesthesia: MAC Completed: BMP, CBC, CTA, H&P Date completed: 10/17/24 Additional orders Type and screen AM of [facility] 10-18-2024 Telephone encounter Note* Telephone Encounter - Shilpi Cook RN - 10/18/2024 4:56 PM EDT Pre TAVR phone call placed. Reviewed, procedure, instructions and meds. Pt verbalizes understanding. Pt knows to call [phone] with any concerns. 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 MANAGER TRACK notified to complete prep for proc Diagnosis: Aortic Stenosis Procedure being done: TAVR Date/time of procedure: 10/23/24 at 7:30 am Surgeon: Dr. Canas 2nd surgeon: Dr. Self Admission type: To be admitted Anesthesia: MAC Completed: BMP, CBC, CTA, H&P Date completed: 10/17/24 Additional orders Type and screen AM of proc [facility] [id number] Telephone encounter Note* Telephone Encounter - Jewels Levy - 10/18/2024 3:56 PM EDT Labs scanned under Media [place] [id number] Telephone encounter Note* Telephone Encounter - Jewels Levy - 10/18/2024 3:34 PM EDT Requested lab from [facility]. She is faxing them to [facility]. [facility] [id number] Telephone encounter Note* Telephone Encounter - Jewels Levy - 10/17/2024 10:51 AM EDT Pending on [employer] using [place] telephone visit from yesterday. Pending# [phone] [place] [id number] Telephone encounter Note* Telephone Encounter - Jewels Levy - 10/16/2024 3:07 PM EDT Letter and Kishore chart note faxed to [phone] and confirmed [place] [id number] Telephone encounter Note* Telephone Encounter - Shilpi Cook RN - 10/16/2024 2:27 PM EDT PC to Dr. Gregory office. Requesting fax regarding medication recommendation sent to [phone]. Will discuss with Jo Levy. [place] [id number] Telephone encounter Note* Telephone Encounter - Shilpi Cook RN - 10/16/2024 2:13 PM EDT PC to dr Gregory office. Placed on hold and disconnected. Will try again later. [place] [id number] History of Present illness Narrative* Dylon Gupta APRN - [employer] - 10/16/2024 11:00 AM EDT [facility] Telehealth Cardiology Note DATE of SERVICE: 10/16/24 TIME of SERVICE: 12:45 PM Chief Complaint: Chief Complaint Patient presents with Follow-up History of Present Illness: Linda Peralta is a 79 y.o. female known to Dr. Marte with a history for CAD, HPL, DVT, PE, [place]'s disease, CKD s/p left nephrectomy (donated) and [...] dyspnea with moderate activity. No CAD per [facility]. Weight 156 lbs. Last clinic visit [...] redirect to the Timeline version of the [employer] Smart[employer]. Limited Telehealth exam Constitutional: [x]Alert [x]Oriented [...] or 3b CKD (HCC) CKD followed by softball coach Dr. Tarango in [place]. Most recent BMP showed SCr 1.61 with CrCl 31. 3. Acute deep vein thrombosis (DVT) of right lower extremity, unspecified vein (HCC) Questionable IVC filter. Currently on Eliquis. Per daughter, LE edema has improved. Post TAVR, willrefer patient to Dr. Gaffney-vascular. We reached out to [facility] clinic for recommendations on bridging. Will [...] a day for 2 days only. 5. [place]'s disease (HCC) Patient is currently taking hydrocortisone (Cortef) 10 mg TID. Will reach out to glue bone crusher Dr. Gregory in [place] ([phone]). for recommendations on IV hydrocortisone prior to [...] patient and provider is done in the [facility] from the [facility] supported by [facility]. [1] Past Medical History: Diagnosis Date [place] anemia 2010 [2] Past Surgical History: Procedure [...] 09/03/2024), Disp: , Rfl: documented in this encounterSMarymount HospitalYqefyn80-74-3144 Telephone encounter Note* Telephone Encounter - LIDIA Mon CNP - 10/16/2024 8:21 AM EDT Reviewed plan for bridging with [facility] pharmacist. Patient's CrCl is 31. She advised lovenox 40 mg BID for bridging. -patient will take last dose of Eliquis on 10/19/24 -starting on 10/20/24, patient will start lovenox 40 mg BID -she will take her last dose of lovenox morning of 10/22. -No lovenox the evening of 10/22 or morning of 10/23 [facility] HospitalEhrhoj77-51-1032 Telephone encounter Note* Telephone Encounter - Jewels Levy - 10/15/2024 11:14 AM EDT Lab order faxed to [facility] [phone]/confirmed [facility] [id number] Telephone encounter Note* Telephone Encounter - Jewels Levy - 10/15/2024 9:58 AM EDT I need PB to please finish his chart note so I can submit this auth [facility] [id number] Telephone encounter Note* Telephone Encounter - Desirae Martinez RN - 10/14/2024 3:09 PM EDT Spoke with patient, she will have labs drawn tomorrow at [place]. Will have clinical secretary fax lab orders over [facility] [id number] NoteReviewed lab work with Butch Gupta APRN, will have patient hold lisinopril until after procedure. Okay to proceed with TAVR, pended case request Spoke with patient verbalized understanding of medication change. Agreed to below procedure date/time. Dx: Severe Aortic stenosis Procedure: TAVR Date/Time: 10/23/24 at 7:30 am Surgeon: Dr. Canas/ Dr. self Location: [facility] Admission: [facility] Anesthesia: DEVANG Levy notified to schedule procedure and obtain insurance auth. Patient scheduled for telephone visit for H&P update and to review bridging instructions 10/16. Reviewed TAVR teach instructions while patient was on the phone. TAVR procedure, instructions reviewed with pt Patient scheduled for TAVR on 10/23/24 at 7:30 am Will report to [facility] Same Day Surgery by 5:30 am Can park in the [facility] Parking Deck or use [employer] parking at the [facility] entrance Plan on overnight stay in the hospital Will not be able to drive for 1 week after procedure Will receive moderate sedation through the IV, will be relaxed but awake during the procedure Nothing to eat or drink after midnight Hold all morning medications Will call with any questions/concerns Patient/family verbalized understanding.[facility]08-25-2025 Telephone encounter Note* Telephone Encounter - [...] am Surgeon: Dr. Canas/ Dr. self Location: [facility] Admission: TBA Anesthesia: DEVANG Levy notified to schedule procedure and obtain insurance auth. Patient scheduled for telephone visit for H&P update and to review bridging instructions 10/16. Reviewed TAVR teach instructions while patient was on the phone. TAVR procedure, instructions reviewed with pt Patient scheduled for TAVR on 10/23/24 at 7:30 am Will report to [facility] Same Day Surgery by 5:30 am [facility] or use [employer] parking at the [facility] entrance Plan on overnight stay in the hospital Will not be able to drive for 1 week after procedure Will receive moderate sedation through the IV, will be relaxed but awake during the procedure Nothing to eat or drink after midnight Hold all morning medications Will call with any questions/concerns Patient/family verbalized understanding. [facility] HospitalMytdfr71-49-2018 Telephone encounter Note* Telephone Encounter - Dylon Gupta APRN - [employer] - 10/14/2024 10:46 AM EDT Patient is scheduled for TAVR on 10/23/24. -Reviewed bridging with [facility] pharmacist. Patient current CrCl is 24 [...] review this with Dr. Canas) [facility] HospitalVkgbfn54-11-6297 Telephone encounter Note* Telephone Encounter - Jewels Levy - 10/10/2024 4:12 PM EDT Results scanned under Media [facility] HospitalMjyzem74-19-9794 Miscellaneous Notes* Telephone Encounter - Jewels Levy [...] - 10/07/2024 4:10 PM EDT I called [facility] and l/m to send me results * Telephone Encounter - Jewels Levy - 10/02/2024 4:38 PM EDT Order faxed to and confirmed * Telephone Encounter - LIDIA Patel CNP - 10/02/2024 4:26 PM EDT Spoke with patient regarding US kidney. Repeat BMP . Please send lab req to [facility]. Will discuss moving forwasr with TAVR with Dr. Canas documented in this encounterSMarymount [id number] Telephone encounter Note* Telephone Encounter - Jewels Levy - 10/10/2024 1:38 PM EDT I called and spoke to Salima and she is faxing result [place] [id number] Telephone encounter Note* Telephone Encounter - Desirae Martinez RN - 10/10/2024 1:15 PM EDT Reviewed with [place]ch Joel APRN as patient completed renal US, plan if BMP shows stable function to proceed with TAVR. BMP results from 10/03/24 at [place] show creatinine 1.82 with GRF 28. Will have MANAGER TRACK review and place TAVR case request if appropriate [place] [id number] Telephone encounter Note* Telephone Encounter - Jewels Levy - 10/08/2024 2:11 PM EDT I need PB chart note finished from 09/03/24 to do this auth [place] [id number] Miscellaneous Notes* Telephone Encounter - Jewels Levy - 10/08/2024 2:11 PM EDT I need PB chart note finished from 09/03/24 to do this auth * Telephone Encounter - Jewels Levy - 10/07/2024 4:10 PM EDT I called [facility] and ivy to send me results * Telephone Encounter - Jewels Levy - 10/02/2024 4:38 PM EDT Order faxed to and confirmed * Telephone Encounter - LIDIA Patel CNP - 10/02/2024 4:26 PM EDT Spoke with patient regarding US kidney. Repeat BMP . Please send lab req to [facility]. Will discuss moving [facility] with TAVR with Dr. Canas documented in this encounterSMarymount HospitalNyyckw91-64-9194 Telephone encounter Note* Telephone Encounter - Jewels Levy - 10/07/2024 4:10 PM EDT I called [facility] to send me results [facility] [id number] Miscellaneous Notes* Telephone Encounter - Jewels Levy - 10/07/2024 4:10 PM EDT I called [facility] to send me results * Telephone Encounter - Jewels Levy - 10/02/2024 4:38 PM EDT Order faxed to and confirmed * Telephone Encounter - LIDIA Patel CNP - 10/02/2024 4:26 PM EDT Spoke with patient regarding US kidney. Repeat [facility] . Please send lab req to [facility]. Will discuss moving forwasr with TAVR with Dr. Canas documented in this [facility]08-13-2025 Telephone encounter Note* Telephone Encounter - Jewels Levy - 10/02/2024 4:38 PM EDT Order faxed to and confirmed [facility] [id number] Miscellaneous Notes* Telephone Encounter - Jewels Levy - 10/02/2024 4:38 PM EDT Order faxed to * Telephone Encounter - LIDIA Patel CNP - 10/02/2024 4:26 PM EDT Spoke with patient regarding US kidney. Repeat [facility] . Please send lab req to [facility]. Will discuss moving forwasr with TAVR with Dr. Canas documented in this [facility]08-13-2025 Miscellaneous Notes* Telephone Encounter - Jewels Levy - 10/02/2024 4:38 PM EDT Order faxed to and confirmed * Telephone Encounter - LIDIA Patel CNP - 10/02/2024 4:26 PM EDT Spoke with patient regarding US kidney. Repeat BMP . Please send lab req to [facility]. Will discuss moving forwasr with TAVR with Dr. Canas documented in this encounterSMarymount HospitalOpryko41-59-1555 Telephone encounter Note* Telephone Encounter - LIDIA Patel CNP - 10/02/2024 4:26 PM EDT Spoke with patient regarding US kidney. Repeat BMP . Please send lab req to [facility]. Will discuss moving forwasr with TAVR with Dr. Canas [facility] HospitalLdlkrt31-15-0851 Telephone encounter Note* Telephone Encounter - LIDIA Patel CNP - 09/26/2024 5:28 PM EDT BMP review. Bump in BUN/creat after 3 days of 40 mg po Lasix. Spoke with daughter. Weight down to 144 #, swelling, improved, dyspnea improved. Will use Lasix 20 mg po for weight gain greater than 3 lbs overnight or 5lbs in a week. Daughter will relay recommendations. [facility] HospitalZitcco55-03-4813 Miscellaneous Notes* Telephone Encounter - LIDIA Patel [...] Daughter will relay recommendations. documented in this [facility]08-07-2025 NoteHNO ID: [id number] Author: SHAKIRA BENOIT RDMS Service: ? Author [...] PATIENT PRESENTS WITH AN IMPLANTABLE OR ATTACHED CONTRACT NEGOTIATION SPECIALIST: No RADIOLOGY DEPARTMENT: Ultrasound PERIPHERAL IV DATA: Not applicable SIGNED BY: Shakira Benoit RDMS September 26, 2024 2:20 [facility]08-04-2025 Telephone encounter Note* Telephone Encounter - Sindi Angeles - 09/23/2024 8:25 AM EDT Per appointment desk, patient scheduled with ID on 10-23-24 at 9:00a.m. with Dr. Noble Chowdary. Cecy Angeles September 23, 2024 8:26 AM [facility]08-04-2025 Miscellaneous Notes* Telephone Encounter - Sindi [...] will be scanned into the chart. Cecy Galdino September 19, 2024 12:06 PM documented in this encounterMercy Health [facility] Hospital07-31-2025 History of Present illness Narrative* LIDIA Patel CNP - 09/19/2024 3:00 PM EDT Images from the original note were not included. [facility] CARDIOLOGY - [address] [address] Dept: [phone] Dept Visit type: Established : 1945 Reason [...] Dr. Gaffney- vascular. Will reach out to [facility] for bridging recommendation 3. Acute systolic [...] a PMH for CAD, HPL, DVT, PE, [place]'s disease, CKD s/p left nephrectomy (donated) and [...] dyspnea with moderate activity. No CAD per [facility]. Weight 156 lbs. Last clinic visit [...] done/ordered within my specialty: EKG in office: SRSHERLEY Review of tests/labs done/ordered outside my specialty: Independent interpretation of tests: Basim Joel, MANAGER TRACK - [employer] [1] Allergies Allergen Reactions Amlodipine Swelling Ciprofloxacin [...] visit. [3] Past Medical History: Diagnosis Date [place] anemia 2010 [4] Past Surgical History: Procedure Laterality Date BLADDER REPAIR HX CYSTECTOMY (HISTORICAL) LAPAROSCOPIC NEPHRECTOMY (HISTORICAL) Left TOTAL ABDOMINAL HYSTERECTOMY [5] Family History Problem Relation Name Age of Onset Heart attack Mother Stroke Father documented in this [facility]07-31-2025 History of Present illness Narrative* LIDIA Patel CNP - 09/19/2024 3:00 PM EDT Images from the original note were not included. [facility] CARDIOLOGY - [address] [address] Dept: [phone] Dept Visit type: Established : 1945 Reason [...] Dr. Gaffney- vascular. Will reach out to [facility] for bridging recommendation 3. Acute systolic [...] dyspnea with moderate activity. No CAD per [facility]. Weight 156 lbs. Last clinic visit [...] visit. [3] Past Medical History: Diagnosis Date [place] anemia 2010 [4] Past Surgical History: Procedure Laterality Date BLADDER REPAIR HX CYSTECTOMY (HISTORICAL) LAPAROSCOPIC NEPHRECTOMY (HISTORICAL) Left TOTAL ABDOMINAL HYSTERECTOMY [5] Family History Problem Relation Name Age of Onset Heart attack Mother Stroke Father documented in this [facility]07-31-2025 Miscellaneous Notes* Addendum Note - LIDIA Patel CNP - 09/19/2024 3:00 PM EDTAddended by: BASIM JOEL on: 09/23/2024 01:57 PM Modules accepted: Orders documented in this [facility]07-31-2025 Note* Addendum Note - LIDIA Patel CNP - 09/19/2024 3:00 PM EDTAddended by: BASIM JOEL on: 09/23/2024 01:57 PM Modules accepted: Orders [facility] [id number] Note* Addendum Note - LIDIA Patel CNP - 09/19/2024 3:00 PM EDTAddended by: BASIM JOEL on: 09/23/2024 01:57 PM Modules accepted: Orders [facility] [id number] Telephone encounter Note* Telephone Encounter - Sindi [...] Cecy Angeles September 19, 2024 12:06 PM [facility]07-31-2025 Instructions* Patient Instructions* Arelis Smith APRN.[employer] - 09/19/2024 11:21 AM EDT Images from [...] Plums Champagne Prunes Cheese Raisins Chicken livers [place] bread Chilies/Spicy foods Saccharin Chocolate Sour cream [place] fruits Soy sauce Coffee Strawberries corned beef Tea Cranberries Tomatoes Krystyna beans Vinegar Grapes Vitamins-buffered with aspartame Caffeine Guava Yogurt Artificial Sweeteners Lemon juice Lentils Artificial Colorants Alternative foods This list offers food alternatives to the foods on the list above. Alcohol or pebbles (only as flavoring) Almonds Apple (small) Blueberries Coffee (acid-free Kava) or highly roasted Extracts, marta, rum, etc Barbadian sauternes Imitation sour cream Onions (cooked?) [place] juice -- reduced acid Peanuts Pears Processed [...] for Female Pelvic Medicine and Reconstructive Surgery [facility] [place] Recurrent UTI Prevention Program: Takes 6 months [...] laxatives such as miralax. documented in this encounterMercy [facility] Hospital07-31-2025 History of Present illness Narrative* Arelis Smith APRN.CNP - 09/19/2024 11:00 AM EDT Images from the original note were not included. [facility] [place] [facility] - [place] UROL [place] EXCHANGE NEW PATIENT UROLOGY VISIT 09/19/2024 10:34 AM PATIENT NAME: Linda Peralta DATE OF : 1945 TODAY'S DATE: 09/19/2024 Referring Provider: Rocio Elizalde [address] [facility] [address] Referring Note Reviewed: Yes Chief Complaint: recurrent [...] diarrhea, renal insufficiency. (): seen by Dr. Reyes, ongoing nausea, vomiting, diarrhea, treated with steroids despit Adrenal insufficiency ([facility]) 06/12/2023 Age-related osteoporosis with current pathological fracture with routine healing 01/19/2023 Anemia 08/26/2009 ASHD (arteriosclerotic heart disease) 04/25/2009 Asthma ([facility]) Benign neoplasm of colon 04/26/2005 Tubular adenoma Chronic diarrhea 03/15/2010 Chronic sphenoidal sinusitis 09/15/2003 Closed displaced fracture of fifth metatarsal bone of right foot 03/22/2023 Closed fracture of bone of right foot 11/08/2022 Collagenous colitis 03/30/2010 Contact dermatitis and other eczema, due to unspecified cause 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 Cardiac cath normal. 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[place]'s disease Cystocele, midline 07/23/2007 Diverticulosis of colon (without mention of hemorrhage) DVT of lower extremity (deep venous thrombosis) ([facility]) 03/27/2009 Left leg Esophageal reflux Gallstones 03/06/2016 [...] W/COLLJ SPEC WHEN PFRMD 03/26/2010 Inpatient at [facility] ESOPHAGOGASTRODUODENOSCOPY TRANSORAL DIAGNOSTIC 02/2002 EGD ESOPHAGOGASTRODUODENOSCOPY [...] RMVL TUBE OVARY 1979 Hysterectomy, ARIEL, BSO Social History: Social History Tobacco Use Smoking status: Never Smokeless tobacco: Never Vaping Use Vaping status: Never Used Substance Use Topics Alcohol use: No Drug use: No Medications: Prior to Admission medications : Medication apixaban (ELIQUIS) 5 mg tab(s), Sig Take 1 tablet by mouth two times a day., Start Date 08/29/24, End Date , Taking? , Authorizing Provider mAos Floyd MD Medication ipratropium bromide (ATROVENT) 42 [...] , Taking? , Authorizing Provider Rocio Elizalde, MANAGER TRACK.[employer] Medication nitroglycerin sublingual (NITROQUICK) 0.4 mg SL [...] Date Value 06/08/2023 Negative 04/16/2015 Neg Specific [place], Ur (no units) Date Value 06/08/2023 1.020 [...] LUCACREA, LUCREACL, LWK, LUSUL in the last 54[address] hours. Physical Exam Vitals and nursing note [...] to pharmacy. Patient givenprinted information. Arelis Smith APRN.[employer] Consultation requested by Rocio Elizalde [address] [facility] [address] for an opinion regarding Linda Peralta patient and my final recommendations will be communicated back to the requesting physician by way of shared Medical record or letter via US mail. Recording using Alluring Logic software for draft documentation of the visit was discussed with the patient/authorized direct marketing representative; all questions welcomed and answered. Patient/authorized direct marketing representative agreed to proceed documented in this encounterMercy Health Allen Hospital07-31-2025 NoteHNO ID: [id number] Author: ARELIS SMITH APRN.TELLY Service: ? Author Type: Nurse Practitioner Type: Progress Notes Filed: 09/20/2024 13:00 Note Text: [facility] [place] [facility] - [place] UROL [place] EXCHANGE NEW PATIENT UROLOGY VISIT 09/19/2024 10:34 AM PATIENT NAME: Linda Peralta DATE OF : 1945 TODAY'S DATE: 09/19/2024 Referring Provider: Rocio Elizalde [address] [facility] [address] Referring Note Reviewed: Yes Chief Complaint: recurrent [...] PAST MEDICAL HISTORY Diagnosis Date Adrenal hypofunction ([facility]) (05/11/2000): left kidney resected, 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 (): seen by Dr. Reyes, ongoing nausea, vomiting, diarrhea, treated with steroids despit Adrenal insufficiency ([facility]) 06/12/2023 Age-related osteoporosis with current pathological fracture with routine healing 01/19/2023 Anemia 08/26/2009 ASHD (arteriosclerotic heart disease) 04/25/2009 Asthma ([facility]) Benign neoplasm of colon 04/26/2005 Tubular adenoma Chronic diarrhea 03/15/2010 Chronic sphenoidal sinusitis 09/15/2003 Closed displaced fracture of fifth metatarsal bone of right foot 03/22/2023 Closed fracture of bone of right foot 11/08/2022 Collagenous colitis 03/30/2010 Contact dermatitis and other eczema, due to unspecified cause 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 Cardiac cath normal. 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[place]'s disease Cystocele, midline 07/23/2007 Diverticulosis of colon (without mention of hemorrhage) DVT of lower extremity (deep venous thrombosis) ([facility]) 03/27/2009 Left leg Esophageal reflux Gallstones 03/06/2016 [...] W/COLLJ SPEC WHEN PFRMD 03/26/2010 Inpatient at [facility] ESOPHAGOGASTRODUODENOSCOPY TRANSORAL DIAGNOSTIC 02/2002 EGD ESOPHAGOGASTRODUODENOSCOPY TRANSORAL DIAGNOSTIC 05/01/2009 EGD ESOPHAGOGASTRODUODENOSCOPY TRANSORAL DIAGNOSTIC 11/18/2009 EGD, EXC CYST/ABERRANT BREAST TISSUE OPEN 1/> LESION 1960 benign IVC FILTER PERCUTANEOUS 03/31/2009 LAPS SURG CHOLECYSTECTOMY W/CHOLANGIOGRAPHY 03/30/2016 LEFT HEART CATH,PERCUTANEOUS 04/27/2009 Cardiac cath, L (more content not included)...[facility] 09-19-2024 Telephone encounter Note* Telephone Encounter - Ama Diaz RN - 09/19/2024 10:42 AM EDT Pt has Urology appointment set up. Ama Diaz RN [facility]07-[facility] Miscellaneous Notes* Telephone Encounter - Ama [...] Pt. Ama Diaz RN documented in this encounterMercy Health Allen Hospital07-24-2025 Telephone encounter Note * Telephone Encounter [...] call and advise Pt. Ama Diaz RN [facility]07-15-2025 History of Present illness Narrative* Baldo De La Cruz MD - 09/03/2024 4:00 PM EDT Images from the original note were not included. [facility]: Cardiothoracic Surgery Multidisciplinary Heart Valve Clinic Date: 09/03/24 Patient:Linda Peralta 1945 79 y.o. female [id number] Subjective: HPI: Linda Peralta [address] Marte is being evaluated for aortic valve stenosis. Echocardiogram completed on 07/03/24 showed moderate to severe aortic valve stenosis with mean [id number] mm Hg. Per note, patient with past medical history significant for STEMI 2009, HLD, DVT, PE, [place]'s Disease, CKD, s/p left nephrectomy and right partial nephrectomy, mitral valve prolapse, and aortic valve stenosis. Pt underwent TOMI on 07/03/24 which demonstrated LVEF 45%, 1-2+ [place], stage 1 diastolic dysfunction, moderately severe aortic [...] were no vitals taken for this visit. @[id number]@ Physical Exam Constitutional: Appearance: Normal appearance. HENT: [...] echocardiography,and other diagnostic images. documented in this [facility]07-15-2025 History of Present illness Narrative* Memo Canas MD - 09/03/2024 3:30 PM EDT Images from the original note were not included. [facility] CARDIOLOGY - [address] [address] Dept: [phone] Dept Visit type: New : 1945 Reason [...] making strategy. CT surgery also saw patient melanie in discussion. In regards to some special considerations, we will need to make sure her UTI is fully treated before proceeding with TAVR. We will contact her glue bone crusher for recommendations about steroid dosingaround the time [...] 650 mg, 650 mg, Oral, q4h PRN, LIDIA Mon CNP atorvastatin (Lipitor) tablet 10 mg, 10 mg, Oral, Nightly, Dylon Gupta APRN - TELLY [START ON 10/24/2024] furosemide (Lasix) tablet 40 mg, 40 mg, Oral, Daily, Dylon Gupta APRN - TELLY [START ON 10/24/2024] Hydrocortisone Sod Suc (PF) (Solu-CORTEF) injection 50 mg, 50 mg, IntraVENous, Once, LIDIA Mon CNP [START ON 10/24/2024] lisinopril tablet 5 mg, 5 mg, Oral, Daily, Dylon Gupta APRN - TELLY methenamine hippurate (Hiprex) tablet 1 g, 1 g, Oral, Nightly, Dylon Gupta APRN - TELLY mupirocin (Bactroban) 2 % ointment 1 Application, 1 Application, Nasal, BID, LIDIA Mon CNP perflutren protein A microsphere (Optison) 3 mL in sodium chloride (PF) 0.9 % 10 mL IV, 0-10 mL, IntraVENous, Once PRN, LIDIA Mon CNP [3] Past Medical History: Diagnosis Date Moris anemia 2010 [4] Past Surgical History: Procedure Laterality Date BLADDER REPAIR CARDIAC CATHETERIZATION N/A 10/23/2024 Performed by Memo Canas MD at [facility] OR CYSTECTOMY (HISTORICAL) LAPAROSCOPIC NEPHRECTOMY (HISTORICAL) Left TOTAL ABDOMINAL HYSTERECTOMY [5] Family History Problem Relation Name Age of Onset Heart attack Mother Stroke Father documented in this [facility]07-10-2025 NoteHNO ID: [id number] Author: AMOS FLOYD MD Service: ? Author Type: Physician Type: Progress Notes Filed: 08/29/2024 11:26 Note Text: This note was created using SponsorHubriter. Subjective Linda Peralta is a 79 year old female here with daughter. She was doing better. Blood pressure was elevating now. Her glue bone crusher, Dr. Gregory, did not need to call in a medication to raise her blood pressure. Edema was improving. Dysuria resolved. She was scheduled to see cardiac surgeons in [facility] next week for possible TAVR. Review [...] I35.0 - To see cardiac surgery in [facility]. 6. Thyroid nodule greater than or equal to 1 cm in diameter incidentally noted on imaging study, right side. - ICD9: 241.0, ICD10: E04.1 - We reviewed this. Dr. Gregory palpated her thyroid and was aware. He recommended monitoring only. Amos Floyd, [facility]07-10-2025 History of Present illness Narrative* Amos Floyd MD - 08/29/2024 10:54 AM EDT This note was created using SponsorHubriter. Subjective Linda Peralta is a 79 year old female here with daughter. She was doing better. Blood pressure was elevating now. Her glue bone crusher, Dr. Gregory, did not need to call in a medication to raise her blood pressure. Edema was improving. Dysuria resolved. She was scheduled to see cardiac surgeons in [facility] next week for possible TAVR. Review [...] I35.0 - To see cardiac surgery in [facility]. 6. Thyroid nodule greater than or equal to 1 cm in diameter incidentally noted on imaging study, right side. - ICD9: 241.0, ICD10: E04.1 - We reviewed this. Dr. Gregory palpated her thyroid and was aware. He recommended monitoring only. Amos Floyd MD documented in this encounterMercy Health Allen Hospital07-03-2025 NoteHNO ID: [id number] Author: ANNEMARIE READ RN Service: ? Author [...] Annemarie Read RN August 22, 2024 12:43 [facility]07-03-2025 History of Present illness Narrative* Annemarie Read RN - 08/22/2024 12:34 PM EDT Transitional Care [...] 22, 2024 12:43 PM documented in this encounterMercy Health Allen Hospital07-03-2025 NotePatient Outreach ([facility]) LINDA PERALTA ([id number]) 1945 F Date Time Provider [facility] visit today, we recorded the [...] 03/10/2016 02/27/2017 Atopic neur (more content not included)...[facility]06-30-2025 Telephone encounter Note* Telephone Encounter - Ama Diaz RN - 08/19/2024 6:30 PM EDT Pt's daughter called and is notified of providers message and instructions. She voices understanding. Ama Diaz RN [facility]06-30-[facility] Miscellaneous Notes* Telephone Encounter - Ama [...] order another antibiotic? Please advise daughter Souleymane [phone]. documented in this encounterMercy Health Allen Hospital06-30-2025 Telephone encounter Note * Telephone Encounter [...] after antibiotic is done. Amos Floyd MD [facility]06-30-2025 Telephone encounter Note* Telephone Encounter - [...] order another antibiotic? Please advise daughter Souleymane [phone]. [facility]06-26-2025 NoteHNO ID: [id number] Author: ANNEMARIE READ RN Service: ? Author Type: Registered Nurse Type: Progress Notes Filed: 08/15/2024 10:28 Note Text: Transition Care Management (TCM) Initial Outreach PCP Update / Actionable Items HRTIC TCM Home Visit Referral Source of Stratification: TCM [facility] Hospital Admission Status: Discharged Readmission Risk Score: N/A Patient's zip code: [address] Is zip code within program service area: No Patient meets program referral criteria: No Patient does not qualify for High Risk TCM Home Visit program due to: Readmission Risk Score does not meet criteria Disposition: Patient does not qualify for HRTIC, will provide TCM outreach follow-up for 30-days Patient Source: Ykp-mg-Grqgorz (OON) Discharge Outreach Summary: Called and spoke [...] concerns at this time. Patient discharged from [facility] Discharge date: 08/09/24 Admitted for: Acute cystitis AND DVT Readmission Risk: N/A Value-Based Contract: Pattie STORM Contact: Contact made with patient: Yes Hi, my name is Annemarie Read RN and I am calling from the [facility] on behalf of your Primary Care [...] I will send your request to a commercial lines underwriter who will contact and assist you with [...] Annemarie Read RN August 15, 2024 10:26 [facility]06-26-2025 History of Present illness Narrative* Annemarie Read RN - 08/15/2024 10:14 AM EDT Transition Care Management (TCM) Initial Outreach PCP Update / Actionable Items HRTIC TCM Home Visit Referral Source of Stratification: TCM [facility] Hospital Admission Status: Discharged Readmission Risk Score: N/A Patient's zip code: [address] Is zip code within program service area: No Patient meets program referral criteria: No Patient does not qualify for High Risk TCM Home Visit program due to: Readmission Risk Score does not meet criteria Disposition: Patient does not qualify for HRTIC, will provide TCM outreach follow-up for 30-days Patient Source: Two-ar-Titewvs (OON) Discharge Outreach Summary: Called and spoke [...] concerns at this time. Patient discharged from [facility] Discharge date: 08/09/24 Admitted for: Acute cystitis & DVT Readmission Risk: N/A Value-Based Contract: [employer] [place] Contact: Contact made with patient: Yes Hi, my name is Annemarie Read RN and I am calling [facility] the [facility] on behalf of your Primary Care [...] I will send your request to a commercial lines underwriter who will contact and assist you with [...] 15, 2024 10:26 AM documented in this encounterMercy Health Allen Hospital06-26-2025 NotePatient Outreach ([facility]) LINDA PERALTA ([id number]) 1945 F Date Time Provider Department 08/15/24 ANNEMARIE READ During your visit today, we recorded the following information about you: Annemarie Read RN 08/15/2024 10:28 AM Signed Transition Care Management (TCM) Initial Outreach PCP Update / Actionable Items HRTIC TCM Home Visit Referral Source of Stratification: [facility] Admission Status: Discharged Readmission Risk Score: N/A Patient's zip code: [address] Is zip code within program service area: No Patient meets program referral criteria: No Patient does not qualify for High Risk TCM Home Visit program due to: Readmission Risk Score does not meet criteria Disposition: Patient does not qualify for HRTIC, will provide TCM outreach follow-up for 30-days Patient Source: Icm-lz-Ygtljva (OON) Discharge Outreach Summary: Called and spoke [...] concerns at this time. Patient discharged from [facility] Discharge date: 08/09/24 Admitted for: Acute cystitis AND DVT Readmission Risk: N/A Value-Based Contract: Aettrenton STORM Contact: Contact made with patient: Yes Hi, my name is Annemarie Read RN and I am calling from the [facility] on behalf of your Primary Care [...] I will send your request to a commercial lines underwriter who will contact and assist you with [...] 5 days. - ipra (more content not included)...[facility]06-25-2025 Instructions* Patient Instructions* Amos Floyd MD - 08/14/2024 12:13 PM EDT HYDRATE WELL. MESSAGE BLOOD PRESSURE READINGS IN 1-2 DAYS. DO NOT TAKE LISINOPRIL OR AMLODIPINE (HIGH BLOOD PRESSURE MEDICATIONS) TRAMADOL NEEDED FOR PAIN NOT BETTER WITH TYLENOL. documented in this encounterMercy Health Allen Hospital06-25-2025 NoteHNO ID: [id number] Author: AMOS FLOYD MD Service: ? Author Type: Physician Type: Progress Notes Filed: 08/15/2024 07:19 Note Text: This note was created using Teleportter. Subjective Patient presents with: Hospital F/U iLnda Peralta is a 79 year old female here with her daughter. She had a heart catheterization 08/05/24 showing minimal CAD and severe . She was being referred for TAVR to a specialist in [facility]. She developed weakness 08/07/24 and was found to be bradycardic and hypotensive. She was admitted with concerns for UTI, urosepsis, non STEMI, and [place]'s. She was treated with IV fluids, antibiotic for Klebsiella aerogenes UTI, and IV hydrocortisone. 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 She was [...] recommended due to hypot (more content not included)...[facility]06-25-2025 History of Present illness Narrative* Amos Floyd MD - 08/14/2024 11:39 AM EDT This note was created using NoteWriter. Subjective Patient presents with: Hospital F/U Linda Peralta is a 79 year old female here with her daughter. She had a heart catheterization 08/05/24 showing minimal CAD and severe . She was being referred for TAVR to a specialist in [facility]. She developed weakness 08/07/24 and was found to be bradycardic and hypotensive. She was admitted with concerns for UTI, urosepsis, non STEMI, and [place]'s. She was treated with IV fluids, antibiotic for Klebsiella aerogenes UTI, and IV hydrocortisone. She was noted to have edema and found to have acute DVT, in the setting of recent holding of residential warfarin for the heart cath. She was [...] in diameter incidentally noted on imaging study, [facility]. Social History Tobacco Use Smoking status: Never [...] hypotension - ICD9: 458.8, ICD10: I95.89 - Santa [place]'s confounded by amlodipine not clearly accounted for. - Patient instructed to stop amlodipine and continue to stay off lisinopril. 3. Adrenal insufficiency (HCC) - ICD9: 255.41, ICD10: E27.40 - Continue steroid taper for now. - Daughter will monitor BP and message in 1-2 days if still low. 4. Nonrheumatic aortic valve stenosis - ICD9: 424.1, ICD10: I35.0 - [facility] 5. Acute cystitis without hematuria - ICD9: 595.0, ICD10: N30.00 Recheck. - UA DIP, URINE (POC) - BACTERIAL CULTURE, URINE Amos Floyd MD documented in this encounterMercy Health Allen Hospital06-20-2025 Discharge summary [facility] Medical Records Department [address] [place] [id number] Discharge Summary 08/09/24 1437 MR#: [id number] Acct: [id number] Name: LINDA PERALTA Rep #:[id number] : 1945 79 From: Jairo Mitchell DO PCP: Dr. Amos Floyd MD Status:A DM IN [facility] Prov[facility] Date of Admission: 08/07/24 [...] mg/mL subcutaneous syringe (Prolia) 60 mg subcut [id number] #1 mL 11/24/22 nitroglycerin 0.4 mg sublingual tablet 0.4 mg sublingual Q5-15M PRN Cardiac/Chest Pain #25 tabs 07/26/23 methenamine hippurate 1 gram tablet 1 g PO QHS 04/29/24 Held on 08/09/24. Instructions: Resume on 08/14/24. simvastatin 20 mg tablet 20 mg PO QHS #90 tabs 07/23/24 ascorbic acid (vitamin C) 1,000 mg tablet 1,000 mg PO QHS 06/18/25 apixaban 5 mg (74 tabs) tablets in [...] rather adrenal insufficiency due topatient is known [place]'s disease on chronic hydrocortisone having urinary tract [...] 81.0 H, Lymph % (Auto) 7.4 L, [place] % (Auto) 9.5, Eos % (Auto) 0.2, [...] to being on chronic steroids with your [place]'sdisease and you will be on a prednisone [...] Prolia 60 mg/mL syringe 60 mg subcut [id number] Qty: 1 1RF nitroglycerin 0.4 mg tablet, [...] Self Care Charges/Coding Visit Charges Inpatient E&M: 67405 Disch Hosp >30min 08/09/24 1456 Cosigner Signature (if applicable): CC: Dr. Jairo Mitchell DO; Dr. Amos Floyd MD~ Signed [facility]06-20-2025 [facility] Progress note Author Ted Toro [facility] Note Date/Time August 08, 2024 10:4 6am [facility] Medical Records Department [address] [place] [address] Progress Note - Hospitalist 08/08/24 1028 MR#: [id number] Acct: [id number] Name: LINDA PERALTA Rep #:[id number] : 1945 79 From: Ted charles MD PCP: Dr. Amos Floyd MD Status:A DM IN Location: [place] [address] Subjective Subjective doing well, feels better than [...] 71.7 H, Lymph % (Auto) 15.0 L, [place] % (Auto) 9.7, Eos % (Auto) 1.1, [...] Urine ClarityClear, Urine pH 6.0, Ur Specific [place] 1.015, Urine Protein 30 H, Urine Glucose [...] consult for management. Colonic diverticulosis. Reading Location: [place] [address] Physical Exam Narrative General: Alert, Oriented x3, [...] UTI without sepsis in the setting of [place]'s disease ? She did not have sepsis [...] Therapeutic Lovenox Charges/Coding Visit Charges Inpatient E&M: 44093 Subs Hosp L2 08/08/24 1046 <Electronically signed by Ted Toro MD> Cosigner Signature (if applicable): CC: ~ Signed [facility] Work Phone: 1(953) 415-143506-19-2025 Progress note [facility] Medical Records Department [address] [place] [address] Progress Note - Hospitalist 08/08/24 1028 MR#: [id number] Acct: [id number] Name: LINDA PERALTA Rep #:[id number] : 1945 79 From: Ted charles MD PCP: Dr. Amos Floyd MD Status:A DM IN Location: [place] [address] Subjective Subjective doing well, feels better than [...] 71.7 H, Lymph % (Auto) 15.0 L, [place] % (Auto) 9.7, Eos % (Auto) 1.1, [...] Urine ClarityClear, Urine pH 6.0, Ur Specific [place] 1.015, Urine Protein 30 H, Urine Glucose [...] consult for management. Colonic diverticulosis. Reading Location: [place] [address] Physical Exam Narrative General: Alert, Oriented x3, [...] UTI without sepsis in the setting of [place]'s disease ? She did not have sepsis [...] Therapeutic Lovenox Charges/Coding Visit Charges Inpatient E&M: 78794 Subs Hosp L2 08/08/24 1046 Cosigner Signature (if applicable): CC: ~ Signed [facility]06-19-2025 History and physical note Author Nixon Brizuela [facility] Center Note Date/Time August 08, 2024 6:55 am [facility] Medical Records Department [address] [place] [address] H&P Exam - Hospitalist 08/07/241930 MR#: [id number] Acct: [id number] Name: LINDA PERALTA Rep #:[id number] : 1945 79 From: Nixon Sanchez DO [...] LVEF ~60% and mild luminal irregularities with mzngxqbk-fj-rpxxtq plus grade II mitral valve insufficiency who presents to [facility] ER complaining of hypotension and [...] 5 days in preparation for her recent [facility] with patient recently just having 1dose yesterday. [...] is expected to extend beyond 2 midnights. [facility] Medical History MVP (mitral valve prolapse) Aortic [...] denosumab 60 mg/mL subcutaneous 60 mg subcut [id number] #1 mL 11/24/22 Unknown Rx syringe (Prolia) [...] [place]- Retired patient is retired ROS ROS Narrative [...] 71.7 H, Lymph % (Auto) 15.0 L, [place] % (Auto) 9.7, Eos % (Auto) 1.1, [...] Urine ClarityClear, Urine pH 6.0, Ur Specific [place] 1.015, Urine Protein 30 H, Urine Glucose (UA) Normal, Urine Ketones Negative, Urine Occult Blood 150 H, Urine Nitrite Positive H, Urine Bilirubin Negative, Urine Urobilinogen Normal, Ur Leukocyte Esterase 25 H, Urine RBC 0-5 SEEN, Urine WBC 5-10 SEEN, Ur Squamous Epith Cells 0 SEEN, Urine Bacteria 3+, Urine Mucus 0 SEEN Imaging [facility] Imaging Services [address] [place] [address] Abdomen/Pelvis without Cont MR#: [id number] Acct: [id number] Name: LNIDA PERALTA Rep #: [id number] : 1945 F 79 From: Omar Carrillo MD PCP: Dr. Amos Floyd MD Status: ADM IN Study: Abdomen/Pelvis without Cont Date of Exam: 08/07/24 Exam# [id number] Ordering Dr: Nixon Silverio DO PROCEDURE: ABDOMEN/PELVIS [...] consult for management. Colonic diverticulosis. Reading Location: [id number] CC: Dr. Nixon Silverio DO; Dr. Amos Floyd MD ~ Stringing Machine Operator: Signed Assessment & Plan Assessment/Plan (1) Acute cystitis without hematuria: (2) Sepsis: QUALIFIERS: Sepsis acute organ dysfunction status: without acute organ dysfunction Sepsis type: sepsis due to unspecified organism Qualified Code(s): A41.9 - Sepsis, unspecified organism (3) Leukocytosis: QUALIFIERS: Leukocytosis type: bandemia Qualified Code(s): D72.825 - Bandemia (4) [place]'s disease: (5) Dehydration: (6) Bradycardia: (7) Elevated [...] nausea and vomiting. Give acetaminophen prn for yxfd-wf-dphqdvah (level 1- 5/10) pain or fever. Give [...] LVEF ~60% and mild luminal irregularities with fwqzyixk-hg-quysqb plus grade II mitral valve insufficiency with MVP - We will consult [facility] to see patient thisadmission for [...] responsive hypotension Charges/Coding Visit Charges Inpatient E&M: 70722 Init Hosp L3 08/08/24 0655 <Electronically signed by Nixon Silverio DO> Cosigner Signature (if applicable): CC: Dr. Nixon Silverio DO; Dr. Amos Floyd MD~ Signed [facility] Work Phone: 1(147) 359-828806-19-2025 History and physical note [facility] Medical Records Department [address] [place] [address] H&P Exam - Hospitalist 08/07/241930 MR#: [id number] Acct: [id number] Name: LINDA PERALTA Rep #:[id number] : 1945 79 From: Nixon Sanchez DO PCP: Dr. Amos Floyd MD Status:A DM IN Location: ICU CVICU20 02-20 HPI - General General Date of Admission: [...] of PE and recurrent DVT's; on warfarin, [place]'s diseasewith orthostatic hypotension and frequent falls; on [...] LVEF ~60% and mild luminal irregularities with qqlvdejq-zq-hfbjmy plus grade II mitral valve insufficiency who presents to [facility] ER complaining of hypotension and [...] that is expected to extend beyond 2midnights. [facility] Medical History MVP (mitral valve prolapse) Aortic stenosis Hypokalemia Elevated serum creatinine Acute prerenal azotemia History of kidney cancer Chronic kidney disease Hypercalcemia Frequent falls Closed head injury (03/20/20) Hypoglycemia (03/20/20) Acute electrocardiogram changes Atopic dermatitis Osteopenia determined by x-ray History of pulmonary embolism shelter (current) use of anticoagulants Orthostatic hypotension Chronic kidney disease, stage 3 [place] disease Essential (primary) hypertension Hyperlipidemia Recurrent deep [...] denosumab 60 mg/mL subcutaneous 60 mg subcut [id number] #1 mL 11/24/22 Unknown Rx syringe (Prolia) [...] Other History of DVT (deep vein thrombosis) 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 Surgical History History [...] safe at home: Yes additional social history: [place]- Retired patient is retired ROS ROS Narrative [...] 71.7 H, Lymph % (Auto) 15.0 L, [place] % (Auto) 9.7, Eos % (Auto) 1.1, [...] Urine ClarityClear, Urine pH 6.0, Ur Specific [place] 1.015, Urine Protein 30 H, Urine Glucose (UA) Normal, Urine Ketones Negative, Urine Occult Blood 150 H, Urine Nitrite Positive H, Urine Bilirubin Negative, Urine Urobilinogen Normal, Ur Leukocyte Esterase 25 H, Urine RBC 0-5 SEEN, Urine WBC 5-10 SEEN, Ur Squamous Epith Cells 0 SEEN, Urine Bacteria 3+, Urine Mucus 0 SEEN Imaging [facility] Imaging Services [address] [place] [address] Abdomen/Pelvis without Cont MR#: [id number] Acct: [id number] Name: LINDA PERALTA Rep #: [id number] : 1945 F 79 From: Omar Carrillo MD PCP: Dr. Amos Floyd MD Status: ADM IN Study: Abdomen/Pelvis without Cont Date of Exam: 08/07/24 Exam# [id number] Ordering Dr: Nixon Silverio DO PROCEDURE: ABDOMEN/PELVIS [...] consult for management. Colonic diverticulosis. Reading Location: [place] [address] CC: Dr. Nixon Silverio DO; Dr. Amos Floyd MD ~ Stringing Machine Operator: Signed Assessment & Plan Assessment/Plan (1) Acute cystitis without hematuria: (2) Sepsis: QUALIFIERS: Sepsis acute organ dysfunction status: without acute organ dysfunction Sepsis type: sepsis due to unspecified organism Qualified Code(s): A41.9 - Sepsis, unspecified organism (3) Leukocytosis: QUALIFIERS: Leukocytosis type: bandemia Qualified Code(s): D72.825 - Bandemia (4) [place]'s disease: (5) Dehydration: (6) Bradycardia: (7) Elevated [...] for Sepsis in the setting of known [place]'s disease with suspected superimposed Adrenal Insufficiency with orthostatic hypotension and frequent falls; on hydrocortisone 20 mg PO daily - Admit to ICU for treatment under the Sepsis protocol. Continue IV ceftriaxone begun in the ER and await culture and sensitivity data. Serialize lactate with level yet to be obtained. Give promethazine prn nausea and vomiting. Give acetaminophen prnfor dywj-rn-hilwmvta (level 1-5/10) pain or fever. Give morphine [...] LVEF ~60% and mild luminal irregularities with rjwbwwtq-ck-bwacst plus grade II mitral valve insufficiency with MVP - We will consult [facility] to see patient thisadmission for [...] responsive hypotension Charges/Coding Visit Charges Inpatient E&M: 64330 Init Hosp L3 08/08/24 0632 Cosigner Signature (if applicable): CC: Dr. Nixon Silverio DO; Dr. Amos Floyd MD~ Signed [facility]06-18-2025 Radiology Diagnostic study note [facility] Imaging Services [address] [place], [place] [address] Abdomen/Pelvis without Cont MR#: [id number] Acct: [id number] Name: LINDA PERALTA Rep #: [id number] : 1945 F 79 From: Oleg Carrillo MD PCP: Dr. Amos Floyd MD Status: A DM IN Study:Abdomen/Pelvis without Cont Date of Exa m: 08/07/24 Exam# [id number] Ordering Dr: Nixon Villareal DO PROCEDURE: ABDOMEN/PELVIS [...] consult for management. Colonic diverticulosis. Reading Location: [id number] CC: Dr. Nixon Silverio DO; Dr. Amos Floyd MD ~ Stringing Machine Operator: Signed [facility]06-18-2025 Discharge summary Author Obinna Uday [facility] Note Date/Time August 07, 2024 7:39 pm [facility] [address] [place] [address] Emergency Department Summary 08/07/24 MR#: [id number] Acct: [id number] Name: LINDA PERALTA Rep #:[id number] : 1945 79 From: Obinna Frye MD [...] Illness/Hospitalization: Yes (Cardiac catheterization earlier this week) [facility] Medical History MVP (mitral valve prolapse) Aortic stenosis Hypokalemia Elevated serum creatinine Acute prerenal azotemia History of kidney cancer Chronic kidney disease Hypercalcemia Frequent falls Closed head injury (03/20/20) Hypoglycemia (03/20/20) Acute electrocardiogram changes Atopic dermatitis Osteopenia determined by x-ray History of pulmonary embolism 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 RI interval is 130 ms perQRS duration 80 ms. QT duration. 14 ms. Van is normal. Patient has evidenceof atrial enlargement. There is also evidence of LVH. There is no acute ischemic changes.) Management Discussion w/another healthcare provider: Hospitalist and Sql Database Programmer (Her calculating machine mechanic was contacted since he sent her [...] independent rotation laboratory results), Discussing w/Patient &/or Family/Care Information Associate, Discussing w/Consultants (Dr. Fermin and ), Arranging Admission or Transfer and Performing Direct Patient Care at Bedside (Treatment for sepsis,'s Moris's disease) Discharge Plan Triage Chief Complaint: Hypotension ED Provider: bOinna Frye Dx/Rx/DC Orders Clinical Impression: Complicated urinary tract infection, Moris's disease, Chronic kidney disease,stage 3, Aortic stenosis, severe, Acute hypotension, Metabolic acidosis, Elevated troponin, shelter (current) use of anticoagulants Prescriptions: No Action hydrocortisone 10 mg tablet 20 mg PO DAILY@0600 Qty: 90 6RF Rx Instructions: 2 tabs qam 1 tab qpm Prolia 60 mg/mL syringe 60 mg subcut [id number] Qty: 1 1RF methenamine hippurate 1 gram [...] MD [Primary Care Provider] - Print Language: Citizen [place] What to do if you have Problems For any increased pain, shortness of breath, bleeding, nausea or vomiting, chestpain, or any unexpected problems, contact your Primary Care Provider. Call [facility] ([phone]) or report to the closest Emergency Room. Call 911 if necessary. 08/07/241938 <Electronically signed by Obinna Frye MD> Cosigner Signature (if applicable): CC: Dr. Amos Floyd MD ~ Signed [facility] Work Phone: 1(848) 143-592306-18-2025 Discharge summary [facility] Medical Records Department [address] [place] [address] Emergency Department Summary 08/07/24 MR#: [id number] Acct: [id number] Name: LINDA PERALTA Rep #:[id number] : 1945 79 From: Obinna Frye MD [...] Illness/Hospitalization: Yes (Cardiac catheterization earlier this week) [facility] Medical History MVP (mitral valve prolapse) Aortic stenosis Hypokalemia Elevated serum creatinine Acute prerenal azotemia History of kidney cancer Chronic kidney disease Hypercalcemia Frequent falls Closed head injury (03/20/20) Hypoglycemia (03/20/20) Acute electrocardiogram changes Atopic dermatitis Osteopenia determined by x-ray History of pulmonary embolism 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 RI interval is 130 ms perQRS duration 80 ms. QT duration. 14 ms. Van is normal. Patient has evidenceof atrial enlargement. There is also evidence of LVH. There is no acute ischemic changes.) Management Discussion w/another healthcare provider: Hospitalist and Sql Database Programmer (Her calculating machine mechanic was contacted since he sent her [...] independent rotation laboratory results), Discussing w/Patient &/or Family/Care Information Associate, Discussing w/Consultants (Dr. 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 Call [facility] ([phone]) or report tothe closest Emergency Room. Call 911 if necessary. 08/07/241938 Cosigner Signature (if applicable): CC: Dr. Amos Floyd MD ~ Signed [facility]06-04-2025 NoteHNO ID: [id number] Author: AMOS FLOYD MD Service: ? Author Type: Physician Type: Progress Notes Filed: 07/24/2024 12:45 Note Text: This note was created using CloudFloor. Subjective Linda Peralta is a 79 year old female. Recording using Alluring Logic software for draft documentation of the visit was discussed with the patient/authorized direct marketing representative; all questions welcomed and answered. Patient/authorized direct marketing representative agreed to proceed Heart Murmur: - [...] on it years ago (more content not included)...[facility]06-04-2025 History of Present illness Narrative* Amos Floyd MD - 07/24/2024 11:28 AM EDT This note was created using SponsorHubriter. Subjective Linda Peralta is a 79 year old female. Recording using Alluring Logic software for draft documentation of the visit was discussed with the patient/authorized direct marketing representative; all questions welcomed and answered. Patient/authorized direct marketing representative agreed to proceed Heart Murmur: - [...] in diameter incidentally noted on imaging study, [facility]. Social History Tobacco Use Smoking status: Never [...] ICD10: E27.40 Stable, and monitored by her glue bone crusher. - HYDROCORTISONE 10 MG TABLET 8. Encounter for immunization - ICD9: V03.89, ICD10: Z23 - PFIZER-BIONTVestec COVID-19 VACCINE AGE 12+ YR (COMIRNATY) Amos Floyd MD [facility] Radiology Diagnostic study note [facility] Imaging Services [address] [place] [address] Chest PA and Lateral MR#: [id number] Acct: [id number] Name: LINDA PERALTA Rep #: [id number] : 1945 F 79 From: Bobbi Parada MD PCP: Dr. Amos Floyd MD Status: P RE [facility] Study:Chest PA and Lateral Date of Exam: 07/23/24 Exam# [id number] Ordering Dr: Heaven Bolton INSOLE TAPE STITCHER [facility] INSOLE TAPE STITCHER [facility]-C PROCEDURE: CHEST PA AND LATERAL 07/23/2024 REASON [...] pulmonary vascular congestion. Mild cardiomegaly. Reading Location: [facility] CC: INSOLE TAPE STITCHER [facility]-C Heaven Bolton; Dr. 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 inactive July 23, [...] August 072024 8:16pm Leukocytosis resolved August 07, 8:16pm Metabolic acidosis resolved July 212024 8:16pm Sepsis resolved August 07 8:16pm [place]'s disease inactive August 072024 8:16pm Aortic stenosis inactive July 8:16pm Aortic stenosis, severe inactive J 2024 8:16pm Chronic kidney disease, stage 3 inac tive August 07, 2024 8:16pm shelter (current) use of anticoagulants inactive August 07, 2024 8:16pm MVP (mitral valve prolapse) inactive August 07, 2024 8:16pm Overweight (BMI 25.0-29.9) inactive August 07, 2024 8:16pm [facility] Work Phone: 1(452) 204-617906-03-2025 Evaluation note* Diagnosis Onset Date Resolution Status Admit Date Aortic stenosis acute July 23, 2024 8:33am Essential (primary) hypertension chronic July 23, 2024 8:33am Hyperlipidemia chronic July 23, 2024 8:33am History of non-ST elevation myocardial infarction (NSTEMI) April, resolved July 23 8:33am Chronic kidney disease, stage 3 inactive July 23, 2024 8:33am 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 Service: ? Author Type: LICENSED NURSE Type: Progress Notes Filed: 07/10/2024 09:03 Note Text: Patient presents for Prolia injection. Denies any problems at this time. Patient instructed on any SE of medication, verbalized understanding and agreed to proceed with treatment. Tolerated injection well. Desirae Arzola [facility]04-30-2025 NoteHNO ID: [id number] Author: MARK LEE CPhT Service: ? Author Type: Demurrage Worker Type: Progress Notes Filed: 06/19/2024 15:00 Note [...] to be addressed Mark Lee CPhT [facility]04-[facility] History of Present illness Narrative* Mark [...] concerns to be addressed Mark Lee CPhT [facility] Pharmacy Team documented [facility] NotePatient Outreach (PHPOHE) LINDA PERALTA ([id number]) 1945 F Date Time Provider Department 06/19/24 [...] concerns to be addressed Mark Lee CPhT [facility] Pharmacy Team Allergies As of Date: [...] Status:Closed by SIMON LEE (more content not included)...[facility]04-28-2025 NoteHNO ID: [id number] Author: MARK LEE CPhT Service: ? Author Type: Demurrage Worker Type: Progress Notes Filed: 06/17/2024 10:08 Note Text: Patient is identified through a medication adherence outreach initiative based [facility] Medication Adherence Category: Statins First Review Attribution [...] Mark Lee CPhT Value [facility]04-28-2025 NotePatient Outreach (PHPOHE) LINDA PERALTA ([id number]) 1945 F Date Time Provider Department 06/17/24 AMOS FLOYD PHPOHE During your visit today, we recorded the following information about you: Mark Lee CPhT 06/17/2024 10:08 AM Signed Patient is identified through a medication adherence outreach initiative based on pharmacy claims data from: [facility] Medication Adherence Category: Statins First Review Attribution Status: Correct Attribution Medication(s) Simvastatin 20 mg Medication Status per portal/Epic Reconcile Dispense: Not filled - Outreach patient Medication Status per Profile Review: No issues per profile review Patient appropriate for outreach? Yes Patient identified by name and Outreach to patient: Left Voicemail/message for return call What was primary intervention? No intervention Mark Lee CPhT [facility] Pharmacy Team Allergies As of Date: [...] disease) [I25.10] 04/25/2009 DVT (deep venous thrombosis) ([facility]) [I82.409] 03/23/2012 01/23/2024 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 [...] in*02/22/2024 Encounter Status:Closed by MARK LEE on 06/17/24[facility] 05-14-2024 NoteHNO ID: [id number] Author: NAKIA BURK CPhT Service: ? Author Type: Demurrage Worker Type: Progress Notes Filed: 05/14/2024 14:05 Note [...] Nakia Burk CPhT [facility]03-25-2025 History of Present illness Narrative* Nakia [...] Based Care Pharmacy Team documented [facility]-2025 NotePatient Outreach (PHPOHE) LINDA PERALTA ([id number]) 1945 F Date Time Provider Department 05/14/24 AMOS FLOYD PHPOHE During your visit today, we recorded the following information about you: Nakia Burk CPhT 05/14/2024 2:05 PM Signed Patient is identified through a medication adherence outreach initiative based on pharmacy claims data from: [facility] Medication Adherence Category: Hypertension First Review Attribution [...] concerns to be addressed Nakia Burk CPhT [facility] Care Pharmacy Team Allergies As of Date: [...] disease) [I25.10] 04/25/2009 DVT (deep venous thrombosis) ([facility]) [I82.409] 03/23/2012 01/23/2024 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 [...] in*02/22/2024 Encounter Status:Closed by NAKIA BURK on 05/14/24[facility] 04-29-2024 Evaluation note* Diagnosis Onset Date Resolution Status Admit Date Aortic stenosis acute April 10:53am shelter (current) use of anticoagulants acute April 29, 2024 10:53am MVP (mitral valve prolapse) acute April 29, 2024 10:53am Chronic kidney disease, stage 3 chromium plater mg April 29, 2024 10:53am Essential (primary) hypertension chronic April 29, 2024 10:53am Hyperlipidemia chronic April 10:53am History of non-ST elevation myocardial infarction (NSTEMI) April, resolved M arch 2024 10:53am [facility] Work Phone: 1(725) 492-141103-10-2025 Evaluation note* Diagnosis Onset Date Resolution Status Admit Date Aortic stenosis acute April 10:53am 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 acute April 29, 2024 10:53am MVP (mitral valve prolapse) acute April 29, 2024 10:53am Chronic kidney disease, stage 3 chromium plater mg April 29, 2024 10:53am Essential (primary) hypertension chronic April 29, 2024 10:53am Hyperlipidemia chronic April 10:53am History of non-ST elevation myocardial infarction (NSTEMI) April, resolved M arch 2024 10:53am Severe aortic stenosis acute 2024 8:33am [facility] Work Phone: 1(967) 235-319703-10-2025 Evaluation note* Diagnosis Onset Date Resolution Status Admit Date Aortic stenosis acute April 10:53am shelter (current) use of anticoagulants acute April 29, 2024 10:53am MVP (mitral valve prolapse) acute April 29, 2024 10:53am Chronic kidney disease, stage 3 chromium plater mg April 29, 2024 10:53am Essential (primary) hypertension chronic April 29, 2024 10:53am Hyperlipidemia chronic April 10:53am History of non-ST elevation myocardial infarction (NSTEMI) April, resolved M 2024 10:53am Aortic stenosis acute July 23, 2024 8:33am shelter (current) use of anticoagulants acute July 23, 2024 8 :33am MVP (mitral valve prolapse) acute July 23, 2024 8:33am Chronic kidney disease, stage 3 chromium plater gm July 23, 2024 8:33am Essential (primary) hypertension chronic July 23, 2024 8 :33am Hyperlipidemia chronic July 23, 2024 8:33am History of non-ST elevation myocardial infarction (NSTEMI) April, resolved J [facility] 2024 8:33am [facility] Work Phone: 1(567) 470-926203-10-2025 Evaluation note* Diagnosis Onset Date Resolution Status Admit Date Aortic stenosis acute April 10:53am shelter (current) use of anticoagulants acute April 29, 2024 10:53am MVP (mitral valve prolapse) acute April 29, 2024 10:53am Chronic kidney disease, stage 3 chromium plater mg April 29, 2024 10:53am Essential (primary) hypertension chronic April 29, 2024 10:53am Hyperlipidemia chronic April 10:53am History of non-ST elevation myocardial infarction (NSTEMI) April, resolved M [facility] 2024 10:53am Aortic stenosis acute July 23, 2024 8:33am shelter (current) use of anticoagulants acute July 23, 2024 8 :33am MVP (mitral valve prolapse) acute July 23, 2024 8:33am Chronic kidney disease, stage 3 chromium plater mg July 23, 2024 8:33am Essential (primary) hypertension chronic July 23, 2024 8 :33am Hyperlipidemia chronic July 23, 2024 8:33am History of non-ST elevation myocardial infarction (NSTEMI) April, resolved J une 2024 8:33am Acute cystitis without hematuria acute August 07, 2024 8:16pm Acute hypotension acute August 072024 8:16pm [place]'s disease acute August 072024 8:16pm Aortic stenosis acute July 8:16pm Aortic stenosis, severe acute J une 2024 8:16pm Complicated urinary tract infection acute August 07, 2024 8:16pm Dark stools acute August 07 8:16pm Dehydration acute August 07 8:16pm Elevated troponin acute August 072024 8:16pm Leukocytosis acute August 07, 2 025 8:16pm shelter (current) use of anticoagulants acute August 07, 2024 8:16pm Metabolic acidosis acute July 212024 8:16pm MVP (mitral valve prolapse) acute August 07, 2024 8:16pm Overweight (BMI 25.0-29.9) acute August 07, 2024 8:16pm Sepsis acute August 07 8:16pm Chronic kidney disease, stage 3 chromium plater mg August 07, 2024 8:16pm [facility] Work Phone: 1(354) 255-891003-10-2025 Evaluation note* Diagnosis Onset Date Resolution Status Admit Date Aortic stenosis acute April 10:53am shelter (current) use of anticoagulants acute April 29, 2024 10:53am MVP (mitral valve prolapse) acute April 29, 2024 10:53am Chronic kidney disease, stage 3 chromium plater mg April 29, 2024 10:53am Essential (primary) hypertension chronic April 29, 2024 10:53am Hyperlipidemia chronic April 10:53am History of non-ST elevation myocardial infarction (NSTEMI) April, resolved M arch 2024 10:53am Aortic stenosis acute July 23, 2024 8:33am 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 acute July 23, 2024 8 :33am MVP (mitral valve prolapse) acute July 23, 2024 8:33am Chronic kidney disease, stage 3 chromium plater mg July 23, 2024 8:33am Essential (primary) hypertension chronic July 23, 2024 8 :33am Hyperlipidemia chronic July 23, 2024 8:33am History of non-ST elevation myocardial infarction (NSTEMI) April, resolved J [facility] 2024 8:33am Acute cystitis without hematuria acute August 07, 2024 8:16pm Acute hypotension acute August 072024 8:16pm [place]'s disease acute August 072024 8:16pm Aortic stenosis acute July 8:16pm Aortic stenosis, severe acute J [facility] 2024 8:16pm Bradycardia acute August 07 8:16pm Complicated urinary tract infection acute August 07, 2024 8:16pm Dark stools acute August 07 8:16pm Dehydration acute August 07 8:16pm Elevated troponin acute August 072024 8:16pm Leukocytosis acute August 07, 2 025 8:16pm shelter (current) use of anticoagulants acute August 07, 2024 8:16pm Metabolic acidosis acute July 212024 8:16pm MVP (mitral valve prolapse) acute August 07, 2024 8:16pm Overweight (BMI 25.0-29.9) acute August 07, 2024 8:16pm Sepsis acute August 07 8:16pm Chronic kidney disease, stage 3 chromium plater mg August 07, 2024 8:16pm [facility] Work Phone: 1(840) 617-188402-14-2025 NoteHNO ID: [id number] Author: DEL SARAVIA MA Service: ? Author Type: Dental Surgery Doctor Type: Progress Notes Filed: 04/05/2024 15:22 Note [...] or unnecessary to reach patient: Left message ComVibehart message sent Navigation Signature: Del Saravia MA April 05, 2024 3:11 [facility]02-14-2025 History of Present illness Narrative* Del [...] or unnecessary to reach patient: Left message dax Asparnat message sent Navigation Signature: Del Saravia MA April 05, 2024 3:11 PM documented in this encounterMer[facility] NotePatient Outreach (NETNAV) LINDA PERALTA ([id number]) 1945 F Date Time Provider Department 04/05/24 [...] in*02/22/2024 Encounter Status:Closed by DEL SARAVIA on 04/05/24[facility] 02-22-2024 Telephone encounter Note* Telephone Encounter - Carlos Roe RN - 02/22/2024 9:13 AM EST Pt called and is notified of results and given providers message. Pt voices understanding. States her Digital Media Manager is Dr. Alexander Gregory in [facility]. She sees him for her [place]'s disease. Will fax this msg and CT scan report to his office. [facility]01-02-[facility] Miscellaneous Notes* Telephone Encounter - Carlos Roe RN - 02/22/2024 9:13 AM EST Pt called and is notified of results and given providers message. Pt voices understanding. States her Digital Media Manager is Dr. Alexander Gregory in [facility]. 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 Will fax this msg and CT scan report to his office. * Telephone Encounter - Carlos Roe RN - 02/22/2024 9:09 AM EST ----- Message from Amos Floyd MD sent at 02/22/2024 12:42 AM EST ----- Nodule on chest xray is a healed rib fracture. What needs follow up is a 1.1 cm nodule of her rightthyroid. 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 documented in this encounterMercy [facility] Hospital01-02-2025 Telephone encounter Note * Telephone Encounter - Carlos Roe RN - 02/22/2024 9:09 AM EST ----- Message from Amos Floyd MD sent at 02/22/2024 12:42 AM EST ----- Nodule on chest xray is a healed rib fracture. What needs follow up is a 1.1 cm nodule of her rightthyroid. 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 [facility]12-12-[facility] History of Present illness Narrative* Gisela Baird, CT - 02/01/2024 10:40 AM EST Radiology [...] PATIENT PRESENTS WITH AN IMPLANTABLE OR ATTACHED CONTRACT NEGOTIATION SPECIALIST: No RADIOLOGY DEPARTMENT: CT; Exam(s) Completed: Chest PERIPHERAL IV DATA: Not applicable SIGNED BY: JOESPH Higgins February 01, 2024 11:10 AM documented in this encounterMercy Health Allen Hospital12-12-2024 NoteHNO ID: [id number] Author: GISELA BAIRD CT Service: Radiology Author Type: Certified Registered Dental Assistant Type: Progress Notes Filed: 02/01/2024 11:10 Note [...] PATIENT PRESENTS WITH AN IMPLANTABLE OR ATTACHED CONTRACT NEGOTIATION SPECIALIST: No RADIOLOGY DEPARTMENT: CT; Exam(s) Completed: Chest PERIPHERAL IV DATA: Not applicable SIGNED BY: JOESPH Higgins February 01, 2024 11:10 [facility]12-03-2024 Instructions* Patient Instructions* Amos Floyd [...] review all the medicines you take, even hpks-gco-ycthsvt medicines. As you get older, the way [...] or wearing slippers. For more information, contact: [facility] for Disease Control and Prevention www.cdc.gov/injury * This information may not apply if you have certain medical conditions. documented in this encounterMercy Health Allen Hospital12-03-2024 NoteHNO ID: [id number] Author: AMOS FLOYD MD Service: ? Author Type: Physician Type: Progress Notes Filed: 01/23/2024 14:09 Note Text: This note was created using CloudFloor. Subjective Linda Peralta is a 78 year [...] immunization - ICD9: V03.89, ICD10: Z23 - [employer] COVID-19 VACCINE AGE 12+ YR (COMIRNATY) - [...] 39 Stable - Couns (more content not included)...[facility]12-03-2024 History of Present illness Narrative* Amos Floyd MD - 01/23/2024 10:34 AM EST This note was created using Teleportter. Subjective Linda Peralta is a 78 year [...] Deconditioning Weakness Nstemi (Non-St Elevated Myocardial Infarction) (Formerly [facility]) Adrenal Insufficiency (Hcc) Nonrheumatic Aortic Valve Stenosis [...] immunization - ICD9: V03.89, ICD10: Z23 - [employer] COVID-19 VACCINE AGE 12+ YR (COMIRNATY) - [...] - General Outside specialists seen: Cardiology-Dr. Ortega [facility] Nephrology- Dr. Jennifer Tarango Acoustic Intelligence Specialist- Dr. Isreal Carpio Endocrinology- Dr. Alexander Gregory. [...] interested in routine screening. documented in this encounterMercy Health Allen Hospital12-03-2024 NoteHNO ID: [id number] Author: AMOS FLOYD MD Service: ? Author [...] - General Outside specialists seen: Cardiology-Dr. Ortega [facility] Nephrology- Dr. Jennifer Tarango Acoustic Intelligence Specialist- Dr. Isreal Carpio Endocrinology- Dr. Alexander Gregory. [...] she was no longer interested in routine screening.[facility]11-29-2024 Telephone encounter Note* Telephone Encounter - Kelley Rivera LPN - 01/19/2024 3:49 PM EST Called pt and reviewed. She says cardiology wanted chest CT repeated next year. She has appt with pcp 01/23/24 she will review then to see when this needs repeated. [facility]11-29-[facility] Miscellaneous Notes* Telephone Encounter - Kelley [...] support you in caring for your patient. [facility] is committed to providing safe care [...] to the appropriate caregiver. documented in this encounterMercy Health Allen Hospital11-29-2024 Telephone encounter Note * Telephone Encounter [...] support you in caring for your patient. [facility] is committed to providing safe care [...] we can redirect to the appropriate caregiver. [facility]11-25-2024 NoteHNO ID: [id number] Author: AMOS FLOYD MD Service: ? Author Type: Physician Type: Progress Notes Filed: 01/15/2024 18:51 Note Text: ASSESSMENT/PLAN: 1. Nodule of lower lobe of right lung needing follor up CT - ICD9: 793.11, ICD10: R91.1 - CT CHEST WO IVCON Amos Floyd [facility]11-25-2024 History of Present illness Narrative* Amos Floyd MD - 01/15/2024 6:50 PM EST ASSESSMENT/PLAN: 1. Nodule of lower lobe of right lung needing follor up CT - ICD9: 793.11, ICD10: R91.1 - CT CHEST WO SHEILA Floyd MD documented in this encounterMercy Health Allen Hospital11-21-2024 NoteHNO ID: [id number] Author: DESIRAE ARZOLA LPN Service: ? Author Type: LICENSED NURSE Type: Progress Notes Filed: 01/11/2024 13:42 Note Text: Patient presents for Prolia injection. Denies any problems at this time. Patient instructed on any SE of medication, verbalized understanding and agreed to proceed with treatment. Tolerated injection well. Desirae Arzola LP[facility] History of Present illness Narrative* Desirae Arzola LPN - 01/11/2024 1:41 PM EST Patient presents for Prolia injection. Denies any problems at this time. Patient instructed on any SE of medication, verbalized understanding and agreed to proceed with treatment. Tolerated injectionwell. Desirae Arzola LPN documented in this encounterMercy Health Allen Hospital11-11-2024 History of Present illness Narrative* Marguerite [...] PATIENT PRESENTS WITH AN IMPLANTABLE OR ATTACHED CONTRACT NEGOTIATION SPECIALIST: No RADIOLOGY DEPARTMENT: General X-ray: Exam(s) Completed: Chest X-Ray PERIPHERAL IV DATA: Not applicable SIGNED BY: RT Doug(Lin) January 01, 2024 1:40 PM documented in this encounterMercy Health Allen Hospital11-11-2024 NoteHNO ID: [id number] Author: MARGUERITE WALLER RT(R) Service: Radiology Author [...] PATIENT PRESENTS WITH AN IMPLANTABLE OR ATTACHED CONTRACT NEGOTIATION SPECIALIST: No RADIOLOGY DEPARTMENT: General X-ray: Exam(s) Completed: Chest X-Ray PERIPHERAL IV DATA: Not applicable SIGNED BY: Marguerite Waller RT(R) January 01, 2024 1:40 [facility]11-08-2024 History of Present illness Narrative* Javier Abbott PA-C - 12/29/2023 9:30 AM EST Images from the original note were not included. [facility] PATIENT NAME: Linda [...] had X-ray a few weeks before at [facility] and we don't have the [...] eczema, due to unspecified cause 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[place]'s disease Cystocele, midline 07/23/2007 Diverticulosis of colon (without mention of hemorrhage) DVT (deep venous thrombosis) ([facility]) 03/23/2012 DVT of lower extremity (deep venous thrombosis) ([facility]) 03/27/2009 Esophageal reflux Gallstones 03/06/2016 Hypercalcemia 03/19/2009 Hypertension Nonrheumatic aortic valve stenosis 06/30/2023 NSTEMI (non-ST elevated myocardial infarction) ([facility]) 04/27/2009 Cardiac cath normal Osteopenia on chronic [...] W/COLLJ SPEC WHEN PFRMD 03/26/2010 Inpatient at [facility] ESOPHAGOGASTRODUODENOSCOPY TRANSORAL DIAGNOSTIC 02/2002 EGD ESOPHAGOGASTRODUODENOSCOPY [...] Age of Onset Coronary Artery Disease Mother [place] at 87y.o. Hypertension Mother Stroke Father Coronary [...] Department Center 01/11/2024 2:00 PM Nurse, Nerissa SMITH [facility] Live 01/23/2024 9:40 AM Amos Floyd MD INTWS [facility] Follow-up Plan Additional exams needed for this [...] no, patient declined? No documented in this encounterMercy Health Allen Hospital11-07-2024 Miscellaneous Notes* Telephone Encounter - Kelley Rivera LPN - 12/28/2023 11:57 AM EST Pt notified. Nurse visit arranged for 01/01/24. * Telephone Encounter - Kelley Rivera LPN - 12/28/2023 10:50 AM EST Called Pattie at [phone]. This PA is completed with pharmacy to aileen them at [phone]. This reference number is [id number]. Called pharmacy and they report there is a PA already on file for Dr. Rey Vann covered until 05/11/24. Did start a new PA for pcp. This was reviewed over the phone and PA approved from 12/28/23 to 12/27/24. This auth number is [id number]. They will also fax approval notice too. [...] 1:21 PM EST Bone density completed at [facility]. View External Imaging - Bone Density [ID [id number]] Previously completed PA for prolia to be [...] prilia is still recommended documented in this encounterMercy Health Allen Hospital11-07-2024 Telephone encounter Note * Telephone Encounter - Kelley Rivera LPN - 12/28/2023 11:57 AM EST Pt notified. Nurse visit arranged for 01/01/24. [facility]11-07-2024 Telephone encounter Note* Telephone Encounter - Kelley Rivera LPN - 12/28/2023 10:50 AM EST Called Pattie at [phone]. This PA is completed with pharmacy to aileen them at [phone]. This reference number is [id number]. Called pharmacy and they report there is a PA already on file for Dr. Rey Vann covered until 05/11/24. Did start a new PA for pcp. This was reviewed over the phone and PA approved from 12/28/23 to 12/27/24. This auth number is [id number]. They will also fax approval notice too. [facility]11-07-20[facility] Telephone encounter Note* Telephone Encounter - Kelley Rivera LPN - 12/28/2023 10:08 AM EST Called pt and she was notified. She is willing to keep getting the prolia if insurance will cover. Will contact them for PA for prolia. [facility]11-06-2024 Telephone encounter Note* Telephone Encounter - Ariella Christianson RN - 12/27/2023 5:56 PM EST Attempted to contact patient. No answer. Try again. Ariella Christianson RN [facility]11-06-2024 Telephone encounter Note* Telephone Encounter - Amos Floyd MD - 12/27/2023 5:46 PM EST I see she still recently had issues with high calcium and her vitamin D is in a good range. So for her, at this time, additional calcium and vitamin D is not recommended. [facility]11-06-2024 Telephone encounter Note* Telephone Encounter - Milagros Burton LPN - 12/27/2023 3:04 PM EST Patient returned call and went over results, notes from Dr Floyd with understanding. Patient said she is not taking any Calcium or Vitamin D. What dose and is she to start taking both? [facility]11-06-20[facility] Telephone encounter Note* Telephone Encounter - Isha Wright LPN - 12/27/2023 2:38 PM EST Left message for Patient to call office. Isha Wright LPN [facility]11-06-2024 Telephone encounter Note* Telephone Encounter - [...] of treatment is needed. Amos Floyd MD [facility]11-05-2024 Telephone encounter Note* Telephone Encounter - Kelley Rivera LPN - 12/26/2023 1:21 PM EST Bone density completed at [facility]. View External Imaging - Bone Density [ID [id number]] Previously completed PA for prolia to be [...] nurse visit) if prilia is still recommended [facility]10-30-2024 History of Present illness Narrative* Nathaly Ren APRN.DESIGN ENGINE[employer]ODUCTS - 12/20/2023 12:29 PM EDT Images from [...] call back and/or check MyChart Routed to [employer] for scheduling 12/20/2023 Imaging result: routed to [...] chest outside hospital 05/15/2023 documented in this encounterMercy Health Allen Hospital10-21-2024 Telephone encounter Note * Telephone Encounter - Torsten Vora MA - 12/11/2023 9:20 AM EDT Patient notified, verbalized understanding. DXA scheduled for 12/20 [facility]10-21-2024 Miscellaneous Notes* Telephone Encounter - Torsten [...] Please advise patient, and cancel Rx at [facility]. * Telephone Encounter - Kelley Rivera LPN [...] AM EDT Fax rec'd from [facility] regarding the prolia. They note the prescription [...] went to pharmacy benefits. LINDA PERALTA (Kelly: [id number]) - [id number] Prolia 60MG/ML syringes status: PA Request Created: [...] her insurance from 02/20/23 to 02/20/2024 through [facility]. Will call her insurance to see if we can just change the provider and place of service. There wouldbe no change with her clinical requirements. * Telephone Encounter - Kelley Rivera LPN - 12/05/2023 4:19 PM EDT PA needed for prolia. documented in this encounterMercy Health Allen Hospital10-19-2024 Telephone encounter Note * Telephone Encounter - Amos Floyd MD - 12/09/2023 12:11 PM EDT Okay. Do bone density and we'll evaluate options at her follow up in January. [facility]10-18-[facility] Telephone encounter Note* Telephone Encounter - [...] Please advise patient, and cancel Rx at [facility]. [facility]10-17-[facility] Telephone encounter Note* Telephone Encounter - [...] the injection for the nurse to give. [facility]10-17-[facility]24 Telephone encounter Note* Telephone Encounter - Amos Floyd MD - 12/07/2023 12:16 PM EDT The following approved medication requests have been transmitted electronically. Requested Prescriptions Signed Prescriptions Disp Refills denosumab (PROLIA) 60 mg/mL 1 mL 1 Sig: Inject 1 mL subcutaneously once every 6 months. Authorizing Provider: AMOS FLOYD MD [facility]10-17-2024 Telephone encounter Note* Telephone Encounter - Kelley Rivera LPN - 12/07/2023 10:08 AM EDT Fax rec'd from [facility] regarding the prolia. They note the prescription is already covered by the plan with no restrictions with pharmacy D plan. Pt will need rx to local pharmacy and bring to an appt with nurse schedule to be given here. [facility]10-16-[facility] Telephone encounter Note* Telephone Encounter - Kelley Rivera LPN - 12/06/2023 4:32 PM EDT Pt notified we are waiting for insurance to review a prior auth for the prolia [facility]10-16-2024 Telephone encounter Note* Telephone Encounter - [...] Rivera LPN December 06, 2023 4:29 PM [facility]10-16-2024 Miscellaneous Notes* Telephone Encounter - Kelley [...] 06, 2023 4:29 PM documented in this encounterMercy Health Allen Hospital10-16-2024 Telephone encounter Note * Telephone Encounter - Kelley Rivera LPN - 12/06/2023 3:55 PM EDT This went to pharmacy benefits. LINDA PERALTA (Kelly: [id number]) - [id number] Prolia 60MG/ML syringes status: PA Request Created: December 06, 2023 Sent: December 06, 2023 Will see what their response is,may have to call for medical benefits PA coverage to review. [facility]10-16-[facility] Telephone encounter Note* Telephone Encounter - Kelley Rivera LPN - 12/06/2023 2:15 PM EDT Per benefits inquiry it appears pt is covered now with [employer]. [facility]10-16-[facility] Telephone encounter Note* Telephone Encounter - Kelley Rivera LPN - 12/06/2023 2:12 PM EDT Called [employer] and pt no longer covered. This was terminated 02/20/23. [facility]-16-[facility] Telephone encounter Note* Telephone Encounter - Kelley Rivera LPN - 12/06/2023 12:25 PM EDT In review the prolia is already approved with her insurance from 02/20/23 to 02/20/2024 through [facility]. Will call her insurance to see if we can just change the provider and place of service. There wouldbe no change with her clinical requirements. [facility]10-15-[facility] Telephone encounter Note* Telephone Encounter - Kelley Rivera LPN - 12/05/2023 4:19 PM EDT PA needed for prolia. [facility]10-11-20[facility] Telephone encounter Note* Telephone Encounter - [...] Please review and advise, Salima Pedraza RN [facility]10-11-2024 Miscellaneous Notes* Telephone Encounter - Salima [...] 1:57 PM Dxa scan order faxed to [facility]. * Telephone Encounter - Amos Floyd MD - 11/30/2023 12:24 PM EDT ASSESSMENT/PLAN: 1. Age-related osteoporosis with current pathological fracture with routine healing - ICD9: V54.29,733.01, ICD10: M80.00XD - DENOSUMAB 60 MG/ML SUBCUTANEOUS SYRINGE. Ordered. - DXA-AXIAL SKELETON. Do this at [facility] where she's had previous bone densities. Amos Floyd MD * Telephone Encounter - Va Aguayo RN - 11/28/2023 2:31 PM EDT Patient returned call and given provider's message below. Patient states she does not see Dr. Vann any more-that she was dismissed from them due to Dr. Vann does not work with [place]'s Disease. She states her last Prolia injection was in May and she is due. Patient asking if Dr. Floyd would be agreeable to placing a Prolia injection order for her? Reports she could see a Dr. Gregory in [place], [facility], for this but more convenientfor her to ask PCP. Or, does PCP feel she does need any further Prolia injections? Please advise. Thank you. * Telephone Encounter - Isha Wright LPN - 11/28/2023 1:55 PM EDT Left message to call & speak to nurse. Isha Wright LPN * Telephone Encounter - Rocio Elizalde APRN.[employer] - 11/28/2023 1:38 PM EDT It looks like this is being managed by Dr. King Rocio Elizadle APRN.[employer] * Telephone Encounter - Jeaneth Rodriguez - 11/28/2023 11:42 AM EDT Pt wondering if Dr. Amor can order a prolia shot for her, please review and advise. Jeaneth Rodriguez November 28, 2023 11:42 AM documented in this encounterMercy Health Allen Hospital10-10-2024 Telephone encounter Note * Telephone Encounter - Torsten Vora MA - 11/30/2023 1:57 PM EDT Left message to call office. 11/30/2023 1:57 PM Dxa scan order faxed to [facility]. [facility]10-10-[facility] Telephone encounter Note* Telephone Encounter - Amos Floyd MD - 11/30/2023 12:24 PM EDT ASSESSMENT/PLAN: 1. Age-related osteoporosis with current pathological fracture with routine healing - ICD9: V54.29,733.01, ICD10: M80.00XD - DENOSUMAB 60 MG/ML SUBCUTANEOUS SYRINGE. Ordered. - DXA-AXIAL SKELETON. Do this at [facility] where she's had previous bone densities. Amos Floyd MD [facility]10-08-2024 Telephone encounter Note* Telephone Encounter - Va Aguayo RN - 11/28/2023 2:31 PM EDT Patient returned call and given provider's message below. Patient states she does not see Dr. Vann any more-that she was dismissed from them due to Dr. Vann does not work with Moris's Disease. She states her last Prolia injection was in May and she is due. Patient asking if Dr. Floyd would be agreeable to placing a Prolia injection order for her? Reports she could see a Dr. Gregory in [place], part of [facility], for this but more convenientfor her to ask PCP. Or, does PCP feel she does need any further Prolia injections? Please advise. Thank you. [facility]10-08-2024 Telephone encounter Note* Telephone Encounter - Isha Wright LPN - 11/28/2023 1:55 PM EDT Left message to call & speak to nurse. Isha Wright LPN [facility]10-08-2024 Telephone encounter Note* Telephone Encounter - Rocio Elizalde APRN.CNP - 11/28/2023 1:38 PM EDT It looks like this is being managed by Dr. King Rocio Elizalde APRN.DESIGN ENGINEER [employer]ODU[employer] [facility]10-08-2024 Telephone encounter Note* Telephone Encounter - Jeaneth Rodriguez - 11/28/2023 11:42 AM EDT Pt wondering if Dr. Amor can order a prolia shot for her, please review and advise. Jeaneth Rodriguez November 28, 2023 11:42 AM [facility]09-24-2024 History of Present illness Narrative* Jacey Reyes RN - 11/14/2023 3:40 PM EDT CC [facility] NURSE - CHART REVIEW Provider [facility] Action Chart review 06/08/23 [facility] ED for patient had 2 episodes of chest pain approximately 15 minutes, described as a dull pressure in her chest associate with nausea that have since resolved. This happened earlier this morning. Patient is on Coumadin, for repeat lower extremity DVTs. Patient was recently been in the hospital for [place]'s disease, Moris's crisis, and been treated for [...] then started on heparin drip on Monday software architect 1 AM. She was also foundto have UTI and hypercalcemia Pt TT [facility] for ADM with NSTEMI. Pt identified by name and . Reason for Review: Payor request Patient Attributed To: ERICE Payer: PATTIE Chart Review For: Utilization: ED Total Patient High CostTotal Patient High Cost {HIGH COST:110992) Quality measure review Payor request for assistance Action Taken: Data submitted to payor Jacey Reyes RN November 14, 2023 3:40 PM documented in this encounterMercy Health [facility] Hospital07-30-2024 History of Present illness Narrative* Kole El, PT - 09/19/2023 12:06 PM EDT Program_ID:[id number] Access Code: [email or web address] URL: [email or web address] Date: 09-19-2023 Prepared By: Kole El Program [...] of Care: created on 03/28/23 through 09/19/23 [place] in home exercise program.-- MET Patient will [...] 1203 Kole El PT documented in this encounterMercy Health Allen Hospital07-23-2024 History of Present illness Narrative* Kole [...] 1152 Kole El PT documented in this encounterMercy Health Allen Hospital07-19-2024 History of Present illness Narrative* Kole [...] 1508 Kole El PT documented in this encounterMercy Health Allen Hospital07-10-2024 History of Present illness Narrative* Kole [...] 1528 Kole El PT documented in this encounterMercy Health Allen Hospital07-01-2024 History of Present illness Narrative* Jacinda [...] 1225 AURELIA Crockett PT documented in this encounterMercy Health Allen Hospital06-21-2024 History of Present illness Narrative* Amos Floyd MD - 08/11/2023 10:58 AM EDT This note was created using CloudFloor. Subjective Linda Peralta is a 78 year old female here with her daughter. Her blood pressure was improving, and she was able to complete physical therapy this week. I had advised her to take amlodipine 5 mg 2 tablets daily, which was from her calculating machine mechanic. They had been titrating her dose upward. She was scheduled to see her glue bone crusher, Dr. Gregory at . He did not [...] Group. Amos Floyd MD documented in this encounterMercy Health Allen Hospital06-20-2024 Telephone encounter Note * Telephone Encounter - Isha Wright LPN - 08/10/2023 10:28 AM EDT Below recommendation left on identified vm. Isha Wright LPN [facility]06-20-2024 Miscellaneous Notes* Telephone Encounter - Isha Wright LPN - 08/10/2023 10:28 AM EDT Below recommendation left on identified vm. Isha Wright LPN * Telephone Encounter - Amos Floyd MD - 08/10/2023 6:10 AM EDT I think she should increase amlodipine to 10 mg daily. [facility] gave her 90 day supply so take two tablets daily. * Telephone Encounter - Isha Wrgiht LPN - 08/08/2023 4:13 PM EDT Spoke [...] high blood pressure. Patient did not read [employer] message 07/18. Clarify with patient what she is taking for hypertension. Further instructions to follow. Keep appointment this week. documented in this encounterMercy Health Allen Hospital06-20-2024 Telephone encounter Note * Telephone Encounter - Amos Floyd MD - 08/10/2023 6:10 AM EDT I think she should increase amlodipine to 10 mg daily. [facility] gave her 90 day supply so take two tablets daily. [facility]06-19-2024 History of Present illness Narrative* Kole [...] of Care: created on 03/28/23 through 08/09/23 [place] in home exercise program.-- Met continue to [...] Patient to be seen for Therapeutic exercise (38510), Neuromuscular re-education (37808), Manual therapy (68976), Self-intermediate management (18997), Therapeutic activities (84084), Gait Training (42150), Patient/Family/Caregiver Education, General Conditioning PLAN FOR NEXT [...] 957 Kole El PT documented in this encounterMercy Health Allen Hospital06-18-2024 Telephone encounter Note * Telephone Encounter [...] to her appt. 08/11/2023. Isha Wright LPN [facility]06-18-2024 Telephone encounter Note* Telephone Encounter - Amos Floyd MD - 08/08/2023 2:42 PM EDT PT not done due to high blood pressure. Patient did not read [employer] message 07/18. Clarify with patient what she is taking for hypertension. Further instructions to follow. Keep appointment this week. [facility]06-12-2024 History of Present illness Narrative* Kole [...] toward set goals. PLAN FOR NEXT VISIT: RI. SUBJECTIVE: Patient reports starting to take amlodipine [...] Intra BP 1: 164/108 (Leaving Appt.) TREATMENT: Self-Custodial Management: 1: *Subjective assessment taken, discussed patient's [...] 931 Kole El PT documented in this encounterMercy Health Allen Hospital05-29-2024 History of Present illness Narrative* Kole [...] 2 weeks ago she tried to see Supervisor [employer] but reports the physician wasn't there and was rescheduled 07/26/23 @2pm. Patient reports she stopped taking a medication prescribed to her (she doesn't know the name off hand) because it was making her BP reading to high - states her PCP and Supervisor Claims are not aware of this. Pain: Not Assessed this visit. OBJECTIVE MEASURES WITH LEVEL OF FUNCTION: Vitals BP: 164/108 (Resting.) Pulse: 85 Pre BP: 163/117 (12 Minutes into appt after sitting and discussing BP and medications.) Intra BP 1: 170/116 (Leaving Appt.) TREATMENT: Self-Custodial Management: 1: *Subjective assessment taken, BP readings [...] Time : 0900 Session Stop Time : 919 Kole El PT documented in this encounterMercy Health Allen Hospital05-15-2024 History of Present illness Narrative* Kole [...] of Care: created on 03/28/23 through 08/09/23 [place] in home exercise program.-- Met continue to [...] Patient to be seen for Therapeutic exercise (87846), Neuromuscular re-education (73210), Manual therapy (11056), Self-intermediate management (52060), Therapeutic activities (05637), Gait Training (66170), Patient/Family/Caregiver Education, General Conditioning PLAN FOR NEXT [...] and manually with different UEs; discussed the [facility] clinic guidelines for BP and physical activity. [...] resting above clinic guidelines for physical activity. Self-Custodial Management: 1: *Progress check & subjective assessment [...] Time (minutes): 30 Session Start Time : 45 Session Stop Time : 1015 Kole El PT documented in this encounterMercy Health Allen Hospital05-10-2024 History of Present illness Narrative* Amos Floyd MD - 06/30/2023 9:49 AM EDT This note was created using SponsorHubriter. Subjective Linda Peralta is a 78 year old female was here with her daughter. She started having issues with hypercalcemia and weakness 05/14. Her glue bone crusher sent her to the ED for IV [...] (Arteriosclerotic Heart Disease) Dvt (Deep Venous Thrombosis) ([facility]) Chronic Nonallergic Rhinitis Pure hypercholesterolemia Atopic [...] (primary diagnosis) Follow up with endocrinology at [facility]. Labs ordered to facilitate and CC'd [...] 410.70, ICD10: I21.4 Follow up today with [facility]. 6. ASHD (arteriosclerotic heart disease) - ICD9: 414.00, ICD10: I25.10 See above. 7. Nonrheumatic aortic valve stenosis - ICD9: 424.1, ICD10: I35.0 Monitored per cardiology. Amos Floyd MD documented in this encounterMercy Health Allen Hospital05-08-2024 History of Present illness Narrative* Kole [...] 1202 Kole El PT documented in this encounterMercy Health Allen Hospital05-01-2024 History of Present illness Narrative* Kole El, PT - 06/21/2023 1:42 PM EDT Program_ID:[id number] Access Code: [email or web address] URL: [email or web address] Date: 06-21-2023 Prepared By: Kole El Program [...] RLE. 4: Standing Marches: 2x10 ea. 5: [place] Carries: 2 Laps of 60 Feet, 8#db [...] 1342 Kole El PT documented in this encounterMercy Health Allen Hospital04-29-2024 Telephone encounter Note * Telephone Encounter - Delfino Hannah APRN.CNP - 06/19/2023 10:44 AM EDT Please make a hospital follow up appointment to be seen by Dr. Baig or Nurse practitioner in 6-8 weeks. Thank you, Delfino Hannah APRN.TELLY [facility] Work Phone: 1(640) 342-640804-29-2024 Miscellaneous Notes* Telephone Encounter - Delfino Hannah APRN.CNP - 06/19/2023 10:44 AM EDT Please make a hospital follow up appointment to be seen by Dr. Baig or Nurse practitioner in 6-8 weeks. Thank you, Delfino Hannah APRN.CNP documented in this encounterMercy Health Allen Hospital04-24-2024 History of Present illness Narrative* Kole El PT - 06/14/2023 11:15 AM EDT Episode Visit Count: 9 Therapist That Will Accept/Oversee The Plan Of Care: Kole Sienna, PT, DPT. Start of Care Date: 03/28/23 Onset Date: 11/07/22 Plan of Care Certification Date: 05/31/23 Next Certification Due Date: 07/05/23 Patient Identified by Name and Date of : Yes REHABILITATION AND SPORTS THERAPY PHYSICAL THERAPY TREATMENT NOTE ASSESSMENT: Linda Peralta tolerated the session with decreased activity tolerance due to fatigue from recent hospital admission. She demonstrated difficulty with rjn-pb-xxhidi. The patient will continue to benefit from ongoing skilled physical therapy to progress toward set goals. PLAN FOR NEXT VISIT: Gross LE Strengthening; Endurance and Conditioning following hospital admission; take vitals throughout. SUBJECTIVE: Patient reports hospital admission at [facility] for cardiac issues/NSTEMI, also found with UTI and hypercalcemia. Was on Heparin in the hospital. Was admitted in [facility] since last 06/08/23. Physicians have since released her and stated to continue physical activity as able. States she is now on a protein diet. States taking BP today 138/83 this a.m. Pain: Pain Pain Level: 0 Post Treatment Pain Post Treatment Pain Level: 0 OBJECTIVE MEASURES WITH LEVEL OF FUNCTION: Decreased eccentric control down to chair from yyn-is-qosgkj. Vitals BP: 157/106 (Initial.) Pulse: 87 SpO2: 98 % Additional Vitals: Yes Pre Assessment: BP Pre BP: 169/104 (84bpm. After Step-Ups.) Intra Assessment 1: BP Intra 1 Intra BP 1: 174/104 (After Sez-ol-Dgozib; ended session following.) Intra Assessment 2: BP Intra 2 Intra BP 2: 154/104 (BP before leaving.) TREATMENT: Therapeutic Exercise: 1: Warm Up on SCI-FIT: 6 Minutes (Vitals and Subjective Taken: Direct 1:1.) 2: 6 Fwd Stepups: 2x12 ea. leg. 3: 6 Lateral Stepups: 2x12 ea. 4: Chair Nwa-hl-mzjfmh: 2x5. (Patient required assist from 2 UEs [...] 1155 Kole El PT documented in this encounterMercy Health [facility] Hospital04-18-2024 Miscellaneous Notes* Telephone Encounter - Jorge [...] and currently taking hydrocortisone, prescribed by in [place]. Today dealing with CP on right side [...] pressure 7. CARDIAC RISK FACTORS: Hx silent [place]. 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 : Post menopause. Protocols used: Chest Zidq-WYLBD-YK documented in this encounterMercy Health [facility] Hospital04-18-2024 Telephone encounter Note * Telephone Encounter - Thelma Suarez LPN - 06/08/2023 11:03 AM EDT Message below given to daughter. Daughter reports pt is having chest pain and problems swallowing. RN to triage call further. Thelma Suarez LPN [facility]04-18-2024 Miscellaneous Notes* Telephone Encounter - Thelma Suarez LPN - 06/08/2023 11:03 AM EDT Message below given to daughter. Daughter reports pt is having chest pain and problems swallowing. RN to triage call further. Thelma Suarez LPN * Telephone Encounter - Prachi Farrar MA - 06/08/2023 9:15 AM EDT Left message for return call. * Telephone Encounter - Rocio Elizalde APRN.DESIGN ENGINEER [employer]ODUCTS - 06/08/2023 8:30 AM EDT She should continue with the midodrine until she sees Dr. Floyd on 06/29, I will send in a refill to get her through until this appointment Rocio Elizalde APRN.DESIGN ENGINE[employer] * Telephone Encounter - Prachi Farrar MA - 06/07/2023 6:24 PM EDT Patient states she is to have blood work in [address] Gregory in 4 weeks. No medicationchanges. * Telephone Encounter - Rocio Elizalde APRN.CNP - 06/07/2023 5:46 PM EDT BP looks better. Did she have follow-up with Dr. Gregory? Did he make any medication changes? /Rocio Elizalde APRN.DESIGN ENGINE[employer] * Telephone Encounter - Milagros Burton LPN [...] 2:42 PM * Telephone Encounter - Torsten Vroa MA - 06/07/2023 2:37 PM EDT ----- Message from Rocio Elizalde APRN.DESIGN ENG[employer] sent at 05/31/2023 12:58 PM EDT ----- Please call patient for home blood pressure readings documented in this encounterMercy Health [facility] Hospital04-18-2024 Telephone encounter Note * Telephone Encounter - Prachi Farrar MA - 06/08/2023 9:15 AM EDT Left message for return call. [facility]04-18-2024 Telephone encounter Note* Telephone Encounter - Rocio Elizalde APRN.CNP - 06/08/2023 8:30 AM EDT She should continue with the midodrine until she sees Dr. Floyd on 06/29, I will send in a refill to get her through until this appointment Rocio Elizalde APRN.DESIGN ENG[employer] [facility]04-17-2024 Telephone encounter Note* Telephone Encounter - Prachi Farrar MA - 06/07/2023 6:24 PM EDT Patient states she is to have blood work in [address] Gregory in 4 weeks. No medicationchanges. [facility]04-17-2024 Telephone encounter Note* Telephone Encounter - Rocio Elizalde APRN.CNP - 06/07/2023 5:46 PM EDT BP looks better. Did she have follow-up with Dr. Gregory? Did he make any medication changes? /Rocio Elizalde APRN.DESIGN ENGINEER [employer]ODUCTS [facility]04-17-2024 Telephone encounter Note* Telephone Encounter - Milagros Butron LPN - 06/07/2023 3:49 PM EDT Patient [...] standing 1120 am 150/76 pulse 110 standing [facility]04-17-2024 Telephone encounter Note* Telephone Encounter - Torsten Vora MA - 06/07/2023 2:42 PM EDT Left message to call office. 06/07/2023 2:42 PM [facility]04-17-2024 Telephone encounter Note* Telephone Encounter - Torsten Vora MA - 06/07/2023 2:37 PM EDT ----- Message from Rocio Elizalde APRN.DESIGN ENG[employer] sent at 05/31/2023 12:58 PM EDT ----- Please call patient for home blood pressure readings [facility]04-10-2024 Miscellaneous Notes* Telephone Encounter - Kelley Rivera LPN - 05/31/2023 2:18 PM EDT [facility] infusion suite called asking for dx for INR. In review dx of DVT code was given per problem list. documented in this encounterMercy Health [facility] Hospital04-10-2024 History of Present illness Narrative* Rocio Elizalde APRN.CNP - 05/31/2023 1:01 PM EDT PT requesting orders Rocio Elizalde APRN.CNP documented in this encounterMercy Health [facility] Hospital04-10-2024 History of Present illness Narrative* Rocio Elizalde APRN.CNP - 05/31/2023 11:26 AM EDT CC: Patient presents with: Hospital F/U: High calcium HPI Linda Peralta is a 78 year old female who presents today for above. Patient was admitted to 05/23 to 05/25 for elevated calcium, weakness and hypotension. She had been treated for this a couple weeks prior at [facility] with Zometa infusion. Levels had initially improved but were high again on repeat outpatient labs. She has a history of idiopathic hypercalcemia. She was treated with Calcitonin during this admission which lowered ionized calcium from 1.53 to 1.32. Her glue bone crusher is Dr. Gregory at , she is scheduled for follow-up with him on 06/05. Her main concern today is weakness, lightheadedness and hypotension. She was taken off blood pressure medications by her calculating machine mechanic due to hypotension, last dose was over two weeks ago. Checking her BP at home, fluctuates between 100's/60's to 130's/80's. She does feel lightheaded when her BP is low. Weakness has been an ongoing issue however she was starting to improve with PT until now. She has a history of Moris's disease. Her Cortef dose was being titrated down by previous glue bone crusher due to bone loss which is also [...] mention of hemorrhage) DVT (deep venous thrombosis) ([facility]) 03/23/2012 DVT of lower extremity (deep venous thrombosis) ([facility]) 03/27/2009 Esophageal reflux Gallstones 03/06/2016 Hypercalcemia 03/19/2009 Hypertension NSTEMI (non-ST elevated myocardial infarction) ([facility]) 04/27/2009 Cardiac cath normal Other adrenal hypofunction [...] W/COLLJ SPEC WHEN PFRMD 03/26/2010 Inpatient at [facility] ESOPHAGOGASTRODUODENOSCOPY TRANSORAL DIAGNOSTIC 02/2002 EGD ESOPHAGOGASTRODUODENOSCOPY [...] dupilumab 300 mg/2 mL subcutaneous pen injector (Locish) .[id number] fluticasone (FLONASE) 50 mcg/actuation nasal spray Use [...] Age of Onset Coronary Artery Disease Mother [place] at 87y.o. Hypertension Mother Stroke Father Coronary [...] ICD10: I95.89 (primary diagnosis) Suspect secondary to [place]'s and possibly decreased dose of Cortef. Discussed with patient's PCP,the following recommendations reviewed with patient and daughter: IV fluid bolus, will fax orders to [facility] as there is no availability within [facility]. Start Midodrine, see orders. Continue to maintain adequate hydration to include not only water but other liquids as well to avoid hemodilution. Continue to monitor BP at home, we will call her next week for readings Follow-up with glue bone crusher next week as scheduled Follow-up with PCP in one month 2. 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 Hypercalcemia - ICD9: 275.42, ICD10: E83.52 As above Prescription instructions reviewed with patient as applicable. Potential red flag symptoms discussed with the patient. Reviewed appropriate action plan to take if red flag symptoms occur. Patient agreeable to treatment plan. Rocio Elizalde APRN.DESIGN ENGINEER [employer]ODUCTS documented in this encounterBenjamin Ville [address]-10-2024 History of Present illness Narrative* Kole El, PT - 05/31/2023 10:27 AM EDT Program_ID:[id number] Access Code: [email or web address] URL: [email or web address] Date: 05-31-2023 Prepared By: Kole El Program [...] of Care: created on 03/28/23 through 07/05/23 [place] in home exercise program.-- Met continue to [...] Patient to be seen for Therapeutic exercise (76030), Neuromuscular re-education (31059), Manual therapy (84165), Self-intermediate management (89613), Therapeutic activities (92578), Gait Training (79830), Patient/Family/Caregiver Education, General Conditioning PLAN FOR NEXT [...] program to facilitate proper performance and compliance. Self-Custodial Management: 1: *Longer discussion regarding recent decline [...] 1032 Kole El PT documented in this encounterMercy Health [facility] Hospital04-05-2024 History of Present illness Narrative* Temitope Field, OT - 05/26/2023 2:31 PM EDT 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 [...] Unit/Bed: 1008/1008-A Date of : 1945 Acct: [id number] Admitting Diagnosis: Hypercalcemia [E83.52] Date: 05/24/2023 Hospital [...] disease (CMS/HCC) DVT (deep venous thrombosis) (CMS/HCC) Moris's disease (CMS/HCC) Primary hypertension Pure hypercholesterolemia Urinary [...] for assistance if needed. * Raisa Frederick APRN-TELLY - 05/25/2023 10:11 AM EDT Daily Progress [...] last 7 days Lab Units 05/25/23 0002 05/24/23 0435 05/24/23 0306 SODIUM mmol/L 139 138 137 POTASSIUM [...] last 7 days Lab Units 05/25/23 0002 05/24/23 0435 05/24/23 0306 SODIUM mmol/L 139 138 137 POTASSIUM [...] Generalized muscular History of donor nephrectomy History [place]'s disease HTN UTI GERD History of PE/DVT [...] note, this documentation is completed using the InvitedHomeation system (voice recognition software). There may be [...] came to the hospital on 05/23 from [place] [facility]. dx: hypercalcemia. test/labs : calcium 11.1. [...] Standing-Comments: fair Strength: Strength Comments: BUE grossly 4/5 Hand Function: Gross Grasp: Functional Extremities: RUE RUE : Within Functional Limits and LUE LUE: Within Functional Limits Outcome Measures:[facility] Daily Activity Putting on and taking off [...] disease (CMS/HCC) DVT (deep venous thrombosis) (CMS/HCC) [place]'s disease (CMS/HCC) Primary hypertension Pure hypercholesterolemia Urinary [...] came to the hospital on 05/23 from [place] [facility]. dx: hypercalcemia. test/labs : calcium 11.1. [...] LLE : Within Functional Limits Outcome Measures: [facility] Basic Mobility Turning from your back to [...] Comments No comments found. * Raisa Frederick, MANAGER TRACK-DESIGN ENGINEER [employer]ODUCTS - 05/24/2023 2:23 PM EDT Daily Progress Note Linda Peralta is a 78 y.o. female on day 1 of admission presenting with Hypercalcemia. Subjective Patient seen sitting up in the chair without any complaints. Patient was transferred from [facility] after found to have elevated ionized calcium. [...] muscular weakness History of donor nephrectomy History Moris's disease [...] note, this documentation is completed using the [employer] Dictation system (voice recognition software). There may [...] be discharged to: Home Patient is from [place], is here d/t hypercalcemia and her provider [...] with stage 3b chronic kidney disease (CMS/HCC) [place]'s disease ([facility]) Urinary tract infection, site not specified Assessment [...] continue LOS: 1 day documented in this [facility] Work Phone: 1(558) 897-726704-05-2024 Hospital course Narrative* Raisa Frederick APRN-DESIGN ENGINEER [employer]ODUCTS - 05/26/2023 12:30 PM EDT Discharge Diagnosis [...] HTN, GERD, PE/DVT on warfarin presenting to [facility] from [place] [facility] after found to have elevated ionized calcium on routine lab work. Patient presented to [place] for IV fluids, UAreportedly showed evidence of [...] future appointments. NICOLE Wilkinson documented in this [facility] Work Phone: 1(377) 468-593604-04-2024 Hospital Note* Hospital Course - NICOLE Wilkinson - 05/25/2023 11:49 AM EDT Linda Prealta is a 78 y.o. female with a significant past medical history of hypercalcemia, [place]'s disease, HTN, GERD, PE/DVT on warfarin presenting to [facility] from [place] [facility] after found to have elevated ionized calcium on routine lab work. Patient presented to [place] for IV fluids, UAreportedly showed evidence of [...] On day of discharge patient hemodynamically stable. [facility] Work Phone: 1(470) 282-613304-04-2024 Miscellaneous Notes* Hospital Course - NICOLE Wilkinson - 05/25/2023 11:49 AM EDT Linda Peralta is a 78 y.o. female with a significant past medical history of hypercalcemia, [place]'s disease, HTN, GERD, PE/DVT on warfarin presenting to [facility] from [place] [facility] after found to have elevated ionized calcium on routine lab work. Patient presented to [place] for IV fluids, UAreportedly showed evidence of [...] discharge patient hemodynamically stable. [facility] Work Phone: 1(106) 314-976604-04-2024 Hospital Discharge instructions* Discharge Instructions* NICOLE Wilkinson - 05/25/2023 11:45 AM EDT Thank you for choosing [facility]. It has been a pleasure [...] about the care you received, please call [facility] at . Thank you again! TELLY Kline documented in this encounterC[facility]innati [facility] Work Phone: 1(273) 920-665304-03-2024 Consult note* Alexander Gregory MD - 05/24/2023 [...] IV fluids and transferred her over to [facility]. Here she has been feeling well [...] HTN, GERD, PE/DVT on warfarin presenting to [facility] from [place] [facility] after found to have elevated ionized calcium on routine lab work. Patient presented to [place] for IV fluids, UAreportedly showed evidence of [...] with patient and daughter at bedside Souleymane Syedruff [POA] [phone]; patient has advanced directives - not available in [email or web address].Me, family encouraged to bring to hospital or [...] Colin Gregory MD FACE Office phone - [phone] Fax - [phone] Address: [address] [place] [id number] Address: [address] [place] [address] 05/24/2023 9:13 PM [facility] Work Phone: 1(570) 249-792804-03-2024 Consult note* Alexander Gregory MD - 05/24/2023 [...] IV fluids and transferred her over to [facility]. Here she has been feeling well [...] HTN, GERD, PE/DVT on warfarin presenting to [facility] from [place] [facility] after found to have elevated ionized calcium on routine lab work. Patient presented to [place] for IV fluids, UAreportedly showed evidence of [...] and daughter at bedside Souleymane Lopez [POA] [phone]; patient has advanced directives - not available in epic, family encouraged to bring to hospital or [...] Results from last 7 days Lab Units 04/03/24 0435 05/24/23 0306 GLUCOSE mg/dL 77 83 No results found for: HGBA1C Colin Gregory MD FACE Office phone - [phone] Fax - [phone] Address: [address] [facility] [address] Address: [address] [facility] [address] 05/24/2023 9:13 PM documented in this [facility] Work Phone: 1(259) 702-430504-03-2024 History and physical note* NICOLE Ahmadi - 05/24/2023 2:11 AM EDT Medical Group History and Physical ASSESSMENT & PLAN: Hypercalcemia Hx donor nephrectomy Hx Santa [place]'s disease - IVF 100ml/hr x1day; regular diet - tele x 1day d/t above dx - labs: PTH, ionized ca, vit D, CMP, CBC, lactate - Consult to Endocrine - known to Dr Gregory UTI symptom of increased frequency and urgency, no dysuria - Send UA - started on keflex 500 BID - from [place] [facility] - cont this admission - noted [...] upload POA - daughter - Souleymane Lopez [phone] VTE Prophylaxis: Resume warfarin NICOLE Ahmadi HISTORY OF PRESENT ILLNESS: Chief Complaint: hypercalcemia History Of Present Illness: Linda Peralta is a 78 y.o. female with a significant past medical history of hypercalcemia, [place]'s disease, HTN, GERD, PE/DVT on warfarin presenting to [facility] from [place] [facility] after found to have elevated ionized calcium on routine lab work. 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 (): seen by Dr. Reyes, ongoing nausea, vomiting, diarrhea, treated with steroids despite cortrosyn stim test and was felt to have improved clinically (): seen by Dr. Mancini ([facility]uro [facility]), on florinef 0.1 mg MWF, prednisone 5 mg Sat [place]. (): admitted for loss of consciousness, orthostatic, [...] 3b chronic kidney disease ([facility]) DVT (deep venous thrombosis) ([facility]) Overview Signed 05/24/2023 2:02 AM by NICOLE Ahmadi 2009 Moris's disease ([facility]) Overview Signed 05/24/2023 2:02 AM by NICOLE [...] 24 hour(s)). Imaging: No orders to display [facility] Work Phone: 1(793) 443-431604-03-2024 History and physical note* NICOLE Ahmadi - 05/24/2023 2:11 AM EDT Medical Group History and Physical ASSESSMENT & PLAN: Hypercalcemia Hx donor nephrectomy Hx [place]'s disease - IVF 100ml/hr x1day; regular diet - tele x 1day d/t above dx - labs: PTH, ionized ca, vit D, CMP, CBC, lactate - Consult to Endocrine - known to Dr Gregory UTI symptom of increased frequency and urgency, no dysuria - Send UA - started on keflex 500 BID - from [facility] - cont this admission - noted [...] upload POA - daughter - Souleymane Lopez [phone] VTE Prophylaxis: Resume warfarin NICOLE Ahmadi HISTORY OF PRESENT ILLNESS: Chief Complaint: hypercalcemia History Of Present Illness: Linda Peralta is a 78 y.o. female with a significant past medical history of hypercalcemia, Moris's disease, HTN, GERD, PE/DVT on warfarin presenting to [facility] from [place] [facility] after found to have elevated ionized calcium on routine lab work. 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 (): seen by Dr. Reyes, ongoing nausea, vomiting, diarrhea, treated with steroids [...] 3b chronic kidney disease ([facility]/HCC) DVT (deep venous thrombosis) ([facility]) Overview Signed 05/24/2023 2:02 AM by Shakira Antunez APRN-TELLY 2009 Santa [place]'s disease ([facility]) Overview Signed 05/24/2023 2:02 AM by Shakira Antunez APRN-DESIGN ENGINEER PRODUCTS dx by endo years ago Primary hypertension [...] No orders to display documented in this encounterCincinnati [facility] Work Phone: 1(599) 215-961004-02-2024 Telephone encounter Note* Telephone Encounter - Elijah Freed MD - 05/23/2023 6:53 PM EDT Called by lab regarding patient's critical ionized calcium level of 1.69 which is up from 1.6 on 05/11. Noted patient was sent to the ER by her glue bone crusher with this lower reading on 05/11. Called patient who states that she does feel dizzy, mild confusion, muscle weakness, increased thirst. Recommended patient return to the ER for further workup and treatment. Patient will have her daughter drive her. Called and spoke with Dr Lott at [facility] ER and was given report. [facility] Work Phone: 1(170) 996-454804-02-2024 Miscellaneous Notes* Telephone Encounter - Elijah Freed MD - 05/23/2023 6:53 PM EDT Called by lab regarding patient's critical ionized calcium level of 1.69 which is up from 1.6 on 05/11. Noted patient was sent to the ER by her glue bone crusher with this lower reading on 05/11. Called patient who states that she does feel dizzy, mild confusion, muscle weakness, increased thirst. Recommended patient return to the ER for further workup and treatment. Patient will have her daughter drive her. Called and spoke with Dr Lott at [facility] ER and was given report. documented in this encounterMercy Health Allen Hospital04-02-2024 Discharge summary Author Ankush Noguera [facility] May 23, 2023 10:48pm Note Date/Time May 23, 2023 10:4 2pm [facility] Medical Records Department [address] [place] [address] Emergency Department Summary 05/23/23 MR#: [id number] Acct: [id number] Name: LINDA PERALTA Rep #:[id number] : 1945 78 From: Ankush Noguera DO PCP: Dr. Amos Floyd MD Status:R EG ER Location: ED HPI History of Present Illness Chief Complaint: Abn Labs Narrative Narrative: 78-year-old female with history of [place]'s disease who currently is treated byDr. Gregory from [facility] for this. Patient was seen about [...] She does states she feels generally weak. [facility] Medical History Acute electrocardiogram changes Acute prerenal azotemia Moris disease Aortic stenosis Atopic dermatitis Chronic kidney [...] mg/mL subcutaneous syringe (Prolia) 60 mg subcut [id number] #1 mL 11/24/22 [Rx Last Taken Unknown] [...] safe at home: Yes additional social history: [place]- Retired patient is retired ROS ROS ED [...] felt she was [facility] at night that she got back to the emergency room today dueto the repeat lab work. He recommended admission for IV fluids and offered to have the patient admitted to [facility] versus here at [facility] however patient expressed her previous history of Dr. Vann from endocrinology was not good and she preferred to be transferred over to [facility] where her glue bone crusher is for further testing and treatment. Currently awaiting follow-up call from the transfer line. She will need to be transferred but I believe she is stable for transfer via car and Dr. Gregory agreed but we are currently awaiting a bed assignment. Patient will be transferred when a bed is obtained. Impression: 1. Hypercalcemia 2. Generalized weakness 3. History of [place]'s disease Lab Data Labs: Laboratory Results - last 24 hr 05/23/23 20:30 WBC 9.5 RBC 5.07 Hgb 14.5 Hct 43.3 MCV 85.4 MCH 28.6 MCHC 33.5 RDW Std Deviation 44.1 H RDW Coeff of Slava 14.2 Plt Count 271 MPV 10.9 Immature Gran % (Auto) 0.900 Neut % (Auto) 59.7 Lymph % (Auto) 19.2 [place] % (Auto) 9.7 Eos % (Auto) 9.7 [...] Signed: Chino Rendon MD at 21:40 EDT , Discharge [...] Prolia 60 mg/mL syringe 60 mg subcut [id number] Qty: 1 1RF amlodipine 2.5 mg tablet [...] problems, contact your Primary Care Provider. Call [facility] ([phone]) or report to the closest Emergency Room. Call 911 if necessary. 05/23/23 6777 <Electronically signed by Ankush Noguera DO> Cosigner Signature (if applicable): CC: Dr. Amos Floyd MD ~ Signed [facility] Work Phone: 1(377) 950-520504-02-2024 History of Present illness Narrative* Rocio Elizalde, MANAGER TRACK.DESIGN ENGINEER PRODUCTS - 05/23/2023 12:24 PM EDT CC: Patient presents with: ED Follow-up: [facility] ER HPI Linda Peralta is a 78 year old female who presents today with her daughter for above. Patient hadlab work ordered by her glue bone crusher Dr. Gregory on 05/14 which revealed critically high Calcium/ionized calcium. She was instructed to go to the ER immediately that day for treatment. She was treated at [facility] ER with IV fluids and Zometa [...] eczema, due to unspecified cause 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Santa [place]'s disease Cystocele, midline 07/23/2007 Diverticulosis of colon (without mention of hemorrhage) DVT (deep venous thrombosis) ([facility]) 03/23/2012 DVT of lower extremity (deep venous thrombosis) ([facility]) 03/27/2009 Esophageal reflux Gallstones 03/06/2016 Hypercalcemia 03/19/2009 Hypertension NSTEMI (non-ST elevated myocardial infarction) ([facility]) 04/27/2009 Cardiac cath normal Other adrenal hypofunction [...] W/COLLJ SPEC WHEN PFRMD 03/26/2010 Inpatient at [facility] ESOPHAGOGASTRODUODENOSCOPY TRANSORAL DIAGNOSTIC 02/2002 EGD ESOPHAGOGASTRODUODENOSCOPY [...] dupilumab 300 mg/2 mL subcutaneous pen injector (Locish) .[id number] meclizine (ANTIVERT) 25 mg tab Take 1 [...] Age of Onset Coronary Artery Disease Mother [place] at 87y.o. Hypertension Mother Stroke Father Coronary [...] REVIEWED: Most recent labs Outside chart from [facility] ER reviewed. ASSESSMENT/PLAN: 1. Hypercalcemia - [...] Patient agreeable to treatment plan. Rocio Elizalde APRN.DESIGN ENGINEER [employer]ODUCTS documented in this encounterCleveland [id number] Miscellaneous Notes* Telephone Encounter - Carlos Roe RN - 05/23/2023 11:37 AM EDT Pt calling in again regarding below. Scheduled ER f/u visit for today at 1220 with Rocio Elizalde. * Telephone Encounter - Milagros Burton LPN - 05/22/2023 8:49 AM EDT Patient calling with question she was in [facility] ER on 05/14. She was dehydrated and low blood pressure.She said her calcium level was elevated, she was given IV medication to lower the calcium. Patient asking if she should do more lab work to recheck her calcium level? Please advise documented in this encounterMercy Health [facility] Hospital04-02-2024 Miscellaneous Notes* Telephone Encounter - Carlos Roe RN - 05/23/2023 10:42 AM EDT Pt calling in again about repeating labs and concerns. ER f/u appt given for today with Rocio Elizalde at 1220 pm. documented in this encounterMercy Health Allen Hospital03-25-2024 Discharge summary Author Juan Alberto Mcclendon [facility] May 15, 2023 8:38pm Note Date/Time May 15, 2023 3:1 7pm [facility] Medical Records Department [address] [place] [address] Emergency Department Summary 05/15/23 MR#: [id number] Acct: [id number] Name: LINDA PERALTA Rep #:[id number] : 1945 78 From: Juan Alberto Mcclendon MD PCP: Dr. Amos Floyd MD Status:R EG ER Location: ED HPI History of Present Illness Chief Complaint: Abn Labs Informant: patient and family (daughter) Narrative Narrative: Patient sent in by her glue bone crusher Dr. Gregory at for high calcium level [...] because of her abnormal labs. She has Santa Barbara's syndrome, she is on daily hydrocortisone 20 [...] here in triage her blood pressure 68/51. 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 After receiving the labs back, I will call the glue bone crusher prior to administering any of these medications. [...] as well. Called to discuss with her glue bone crusher Dr. Gregory, discussed with his PA who [...] (Auto) 65.8 Lymph % (Auto) 15.8 L [place] % (Auto) 10.7 H Eos % (Auto) [...] EDT , Management Discussion w/another healthcare provider: Sql Database Programmer (Endocrine [facility]) Discharge Plan Triage Chief Complaint: Abn Labs ED Provider: Juan Alberto Mcclendon Dx/Rx/DC Orders Clinical Impression: Hypercalcemia, [place] disease, Transient hypotension Instructions: Hypercalcemia Dc Prescriptions: [...] Prolia 60 mg/mL syringe 60 mg subcut [id number] Qty: 1 1RF amlodipine 2.5 mg tablet [...] your Primary Care Provider. Call [facility] ([phone]) or report to the closest Emergency Room. Call 911 if necessary. 05/15/232037 <Electronically signed by Juan Alberto Mcclendon MD> Cosigner Signature (if applicable): CC: Dr. Amos Floyd MD ~ Signed [facility] Work Phone: 1(642) 496-102703-25-2024 Miscellaneous Notes* Telephone Encounter - Amos Floyd MD - 05/15/2023 3:38 PM EDT Noted. * Telephone Encounter - Ama Diaz RN - 05/15/2023 1:22 PM EDT Pts daughter Souleymane called in and reports her mothers Digital Media Manager Dr Gregory from [facility] called and told her mother to go to the ER. He said her Calcium was critically high, and she needs hydration, Zometa, and Calcitonin. Pt will be going to [facility]. documented in this encounterMercy Health Allen Hospital03-19-2024 History of Present illness Narrative* José Shi PT, DPT - 05/09/2023 8:58 AM EDT Program_ID:[id number] Access Code: [email or web address] URL: [email or web address] Date: 05-09-2023 Prepared By: Kole El Program Notes Exercises - Supine Bridge with Mini Beninese Ball Between Knees - 2 x daily [...] Will Accept/Oversee The Plan Of Care: Kole lE, PT, DPT. Start of Care Date: 03/28/23 [...] José Shi PT, DPT documented in this encounterMercy Health Allen Hospital03-12-2024 History of Present illness Narrative* José Shi PT, DPT - 05/02/2023 8:55 AM EDT Program_ID:[id number] Access Code: [email or web address] URL: [email or web address] Date: 05-02-2023 Prepared By: Kole El Program Notes Exercises - Supine Bridge with Mini Beninese Ball Between Knees - 2 x daily [...] of Care: created on 03/28/23 through 05/30/23 [place] in home exercise program.-- Met continue to [...] Patient to be seen for Therapeutic exercise (95994), Neuromuscular re-education (28533), Manual therapy (27409), Self-intermediate management (45169), Therapeutic activities (11604), Gait Training (36484), Patient/Family/Caregiver Education PLAN FOR NEXT VISIT: Assess [...] José Shi PT DPDana documented in this encounterMercy Health Allen Hospital02-20-2024 History of Present illness Narrative* Kole El, ULISSES - 04/11/2023 10:14 AM EST Episode Visit [...] Clamshells: 2x12 ea., PinkTb. 3: Bridges: 2x12, Ophiem TB 4: Supine SLR: 2x6, 2#cuff. 5: [...] 1111 Kole El PT documented in this encounterMercy Health Allen Hospital02-12-2024 History of Present illness Narrative* Kole El, PT - 04/03/2023 10:57 AM EST Program_ID:[id number] Access Code: [email or web address] URL: [email or web address] Date: 04-03-2023 Prepared By: Kole El Program [...] 1100 Kole El PT documented in this encounterMercy Health Allen Hospital02-06-2024 History of Present illness Narrative* Kole El PT - 03/28/2023 9:04 AM EST Program_ID:[id number] Access Code: [email or web address] URL: [email or web address] Date: 03-28-2023 Prepared By: Kole El Program [...] of Care: created on 03/28/23 through 05/09/23 [place] in home exercise program. Patient will decrease [...] Planned: 6 Planned Treatment Interventions: Therapeutic exercise (03643), Neuromuscular re- education (41697), Manual therapy (16495), Self-intermediate management (38025), Therapeutic activities (50628), Gait Training (71085), Patient/Family/Caregiver Education PLAN FOR NEXT VISIT: Assess [...] Mechanics TREATMENT: PT Treatment Interventions: Therapeutic Exercise, Self-Custodial Management Evaluation Therapeutic Exercise: 1: *S/L Hip [...] facilitated with verbal, visual, and tactile cuing. Self-Custodial Management: 1: Extended time spent rationalizing and [...] 904 Kole El PT documented in this encounterMercy Health Allen Hospital02-02-2024 Miscellaneous Notes* Telephone Encounter - Jaquelin Mcgraw Ma - 03/24/2023 11:33 AM EST Patient called in and message from Dr. Cruz given. She verbalized understanding. documented [facility] this [facility] History of Present illness Narrative* Amos Floyd MD - 01/19/2023 1:31 PM EST This note was created using SponsorHubriter. Subjective Linda Peralta is a 77 year [...] General Cardiology-Dr. Marte Nephrology- Dr. Jennifer Tarango Acoustic Intelligence Specialist- Dr. Carpio Endocrinology- Dr. Torsten Vann (osteoporosis), Dermatology- Dr. Gale (CC) Podiatry- Dr. [place] Cruz. Medical/Family history review [...] Personalized prevention plan provided documented in this encounterMercy Health Allen Hospital11-29-2023 History of Present illness Narrative* Amy [...] 18, 2023 10:53 AM documented in this encounterMercy Health Allen Hospital10-30-2023 History of Present illness Narrative* Omar [...] 5.3 4.3 - 5.6 % Final Comment: [place] Diabetes Association guidelines indicate that patients with [...] eczema, due to unspecified cause 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[place]'s disease Cystocele, midline 07/23/2007 Diverticulosis of colon (without mention of hemorrhage) DVT (deep venous thrombosis) ([facility]) 03/23/2012 DVT of lower extremity (deep venous thrombosis) ([facility]) 03/27/09 Esophageal reflux Gallstones 03/06/2016 Hypercalcemia 03/19/2009 Hypertension NSTEMI (non-ST elevated myocardial infarction) ([facility]) April 27, 2009 Cardiac cath normal Other [...] W/COLLJ SPEC WHEN PFRMD 03/26/2010 Inpatient at [facility] ESOPHAGOGASTRODUODENOSCOPY TRANSORAL DIAGNOSTIC 02/2002 EGD ESOPHAGOGASTRODUODENOSCOPY [...] Up Julieta Avendano LPN documented in this encounterMercy Health Allen Hospital10-30-2023 Instructions* Patient Instructions* Omar Cruz - 12/19/2022 12:24 PM EDT Powerstep Original Full length. Can purchase at [employer] here in [place], [employer] in [place] or [place]. Also can find in [place] in [facility]. Powersteps can also be purchased [...] everything fits well together documented in this encounterMercy Health Allen Hospital10-13-2023 Miscellaneous Notes* Telephone Encounter - Kelley [...] notify patient. Kylah mcdermott documented in this encounterMercy Health Allen Hospital10-12-2023 History of Present illness Narrative* Marguerite [...] 01, 2022 11:40 AM documented in this encounterMercy Health Allen Hospital09-19-2023 History of Present illness Narrative* Jacinda Enriquez APRN.TELLY - 11/08/2022 10:59 AM EDT This note [...] history is provided by the patient. No harbor master was used. Pain (foot) Pain location: right [...] eczema, due to unspecified cause 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[place]'s disease Cystocele, midline 07/23/2007 Diverticulosis of colon (without mention of hemorrhage) DVT (deep venous thrombosis) ([facility]) 03/23/2012 DVT of lower extremity (deep venous thrombosis) ([facility]) 03/27/09 Esophageal reflux Gallstones 03/06/2016 Hypercalcemia 03/19/2009 Hypertension NSTEMI (non-ST elevated myocardial infarction) ([facility]) April 27, 2009 Cardiac cath normal Other [...] W/COLLJ SPEC WHEN PFRMD 03/26/2010 Inpatient at [facility] ESOPHAGOGASTRODUODENOSCOPY TRANSORAL DIAGNOSTIC 02/2002 EGD ESOPHAGOGASTRODUODENOSCOPY [...] Age of Onset Coronary Artery Disease Mother [place] at 87y.o. Hypertension Mother Stroke Father Coronary [...] made at time of exam. Jacinda Enriquez APRN.DESIGN ENGINEER PRODUCTS documented in this encounterMercy Health Allen Hospital09-12-2023 History of Present illness Narrative* Kole [...] of Care: created on 11/01/22 through 01/01/23 [place] in home exercise program. Patient will decrease [...] Planned: 8 Planned Treatment Interventions: Therapeutic exercise (94204), Neuromuscular re- education (25727), Manual therapy (50823), Self-intermediate management (64953), Therapeutic activities (40050), Gait Training (62868), Patient/Family/Caregiver Education PLAN FOR NEXT VISIT: Muscle [...] PT Treatment Interventions: Therapeutic Exercise, Manual Therapy, Self-Custodial Management Evaluation Therapeutic Exercise: 1: Supine Hip [...] Quads: Push to tolerance. 3: Manual Long Van L Hip Distraction: Pull to patient tolerance. Skilled Intervention: Manual skills to improve joint mobility, ROM, and decrease pain. Utilized anatomy knowledge of the therapist, and assessment of patient's response to intervention. Self-Custodial Management: 1: Education on anatomy & physiology [...] 0900 K[address] El PT documented in this encounterMercy Health [facility] Hospital09-06-2023 History of Present illness Narrative* Marguerite Waller, RT(R) - 10/26/2022 2:40 PM EDT Radiology [...] 26, 2022 2:40 PM documented in this encounterMercy Health Allen Hospital09-06-2023 History of Present illness Narrative* Amos Floyd MD - 10/26/2022 2:10 PM EDT This note was created using SponsorHubriter. Subjective Patient presents with: Left Hip Pain [...] HIGH-DOSE) Amos Floyd MD documented in this encounterMercy Health Allen Hospital07-31-2023 Miscellaneous Notes* Telephone Encounter - Carla [...] notify patient. Edda Loya documented in this encounterMercy Health Allen Hospital06-07-2023 Miscellaneous Notes* Telephone Encounter - Sharon Pierre RN - 07/27/2022 2:31 PM EDT Returned call to [facility]- ICD code provided (L20.81) * Telephone Encounter - Faye Harris - 07/27/2022 1:27 PM EDT Specialty Pharmacy phoned requesting a ICD9 Code for ADBRY medication Please advise pharmacy using ref #[id number] documented in this encounterMercy Health Allen Hospital06-02-2023 Miscellaneous Notes* Telephone Encounter - Sharon Pierre RN - 07/22/2022 1:07 PM EDT [facility]MA 05/2022 * Telephone Encounter - Vashti Avendano Pss - 07/22/2022 10:20 AM EDT [facility] specialty pharmacy called and stated that they need a new script for the ADBRY sent to them. Please call [phone] or escribe fax at [phone] documented in this encounterMercy Health Allen Hospital05-31-2023 History of Present illness Narrative* Rocio Johnson, MANAGER TRACK.DESIGN ENGINEER PRODUCTS - 07/20/2022 10:03 AM EDT CC: Patient presents with: F/U 6 months HPI Linda Peralta is a 77 year old female who presents today for above. HTN/ASHD-[place] [facility]. Next follow-up in one week. 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 Managed by endocrinology. Prolia injections every 6 months. Atopic neurodermatitis- managed by [facility] news reporter. Not responsive to current treatments. Startedon new medication called Adbry however her pharmacy has not received this yet. VTE- lifelong anticoagulation with Coumadin. INR's managed by calculating machine mechanic. REVIEW OF SYSTEMS See HPI PAST MEDICAL HISTORY Diagnosis Date Anemia 08/26/2009 ASHD (arteriosclerotic heart disease) 04/25/2009 Asthma Benign neoplasm of colon 04/26/2005 Tubular adenoma Chronic diarrhea 03/15/2010 Chronic sphenoidal sinusitis 09/15/2003 Collagenous colitis 03/30/2010 Contact dermatitis and other eczema, due to unspecified cause 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[place]'s disease Cystocele, midline 07/23/2007 Diverticulosis of colon (without mention of hemorrhage) DVT (deep venous thrombosis) ([facility]) 03/23/2012 DVT of lower extremity (deep venous thrombosis) ([facility]) 03/27/09 Esophageal reflux Gallstones 03/06/2016 Hypercalcemia 03/19/2009 Hypertension NSTEMI (non-ST elevated myocardial infarction) ([facility]) April 27, 2009 Cardiac cath normal Other [...] W/COLLJ SPEC WHEN PFRMD 03/26/2010 Inpatient at [facility] ESOPHAGOGASTRODUODENOSCOPY TRANSORAL DIAGNOSTIC 02/2002 EGD ESOPHAGOGASTRODUODENOSCOPY [...] Age of Onset Coronary Artery Disease Mother [place] at 87y.o. Hypertension Mother Stroke Father Coronary [...] patient asymptomatic at this time. Recommend calling calculating machine mechanic office if continues - Continue current [...] plan. Rocio Johnson APRN.CNP documented in this encounterMercy Health Allen Hospital04-05-2023 History of Present illness Narrative* Ryan [...] Past Histories independently gathered by the clinical human resources support specialist. documented in this encounterMercy Health Allen Hospital01-25-2023 Miscellaneous Notes* Telephone Encounter - Sharon Pierre RN - 03/16/2022 9:52 AM EST Received fax from [employer]- Prior authorization approval for Opzelura 1.5% cream. This authorization is good until 02/19/2023. Pharmacy notified. * Telephone Encounter - Sharon Pierre RN - 03/15/2022 2:16 PM EST Prior authorization requested for Opzelura 1.5% cream via EPA. Will await determination documented in this encounterMercy Health Allen Hospital01-23-2023 Miscellaneous Notes* Telephone Encounter - Donald James RPh - 03/14/2022 1:[address] Gale, This was sent to our pharmacy, however this is something we do not service. Please sign this order to have it sent to patient's preferred pharmacy. Thank you Donald James, PharmD Clinical Pharmacist, Oncology [facility] P: ; F: Pool: P SPEC PHARMACY ONCOLOGY Pool #: [id number] documented in this encounterMercy Health Allen Hospital01-04-2023 History of Present illness Narrative* Ryan [...] Past Histories independently gathered by the clinical human resources support specialist. documented in this encounterMercy Health Allen Hospital10-31-2022 Instructions* Patient Instructions* Rocio Johnson APRN.DESIGN ENGINEER PRODUCTS - 12/20/2021 9:17 AM EDT Please call the office after your follow-up with calculating machine mechanic in January for an update on your blood pressure and if any medication changes were made documented in this encounterMercy Health Allen Hospital10-31-2022 History of Present illness Narrative* Rocio [...] eczema, due to unspecified cause 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[place]'s disease Cystocele, midline 07/23/2007 Diverticulosis of colon (without mention of hemorrhage) DVT (deep venous thrombosis) ([facility]) 03/23/2012 DVT of lower extremity (deep venous thrombosis) ([facility]) 03/27/09 Esophageal reflux Gallstones 03/06/2016 Hypercalcemia 03/19/2009 Hypertension NSTEMI (non-ST elevated myocardial infarction) ([facility]) April 27, 2009 Cardiac cath normal Other [...] W/COLLJ SPEC WHEN PFRMD 03/26/2010 Inpatient at [facility] ESOPHAGOGASTRODUODENOSCOPY TRANSORAL DIAGNOSTIC 02/2002 EGD ESOPHAGOGASTRODUODENOSCOPY [...] Age of Onset Coronary Artery Disease Mother [place] at 87y.o. Hypertension Mother Stroke Father Coronary [...] seen: Cardiology-Dr. Marte Nephrology- Dr. Jennifer Tarango Acoustic Intelligence Specialist- Dr. Carpio Endocrinology- Dr. Torsten Vann (osteoporosis), [...] at this time. - Patient was counseled [id number] by myself (the billing provider) for the [...] YR Rocio Johnson APRN.CNP documented in this encounterMercy Health Allen Hospital10-19-2022 Miscellaneous Notes* Letter - Mammography Coordinator - 12/08/2021 2:02 PM EDT December 08, 2021 PID: [id number] Linda Peralta [address] [place] [address] Dear Ms. Peralta, We are pleased to [...] report will be [facility] as part of your permanent medical record and are available for your continuing care. Thank you for allowing us to help in meeting your health care needs. Sincerely, Dr. Madden Interpreting Radiologist [facility] (Normal over 40) documented in this encounterMercy Health Allen Hospital10-19-2022 History of Present illness Narrative* Damion Lo - 12/08/2021 12:50 PM EDT Radiology Service [...] PERIPHERAL IV DATA: Not applicable SIGNED BY: Damion Lo December 08, 2021 12:55 PM documented in this encounterMercy Health Allen Hospital10-17-2022 History of Present illness Narrative* Amos Floyd MD - 12/06/2021 3:07 PM EDT This note was created using NoteWriter. Subjective Linda Peralta is a 76 year [...] breast - ICD9: V76.12, ICD10: Z12.31 - [facility] SCREENING Amos Floyd MD documented in this [facility]10-13-2022 Miscellaneous Notes* Telephone Encounter - Gifty [...] and advise. Va Harris documented in this encounterMercy Health Allen Hospital10-06-2022 Instructions* Patient Instructions* Ryan Gale MD [...] CeraVe moisturizer as well. documented in this encounterMercy Health Allen Hospital10-06-2022 History of Present illness Narrative* Ryan [...] daily. dupilumab 300 mg/2 mL subcutaneous syringe (Locish) Inject 300 mg SQ every 2 weeks [...] and Past Histories independentlygathered by the clinical human resources support specialist and the remaining scribed note accurately describes my personal service to the patient. Signature: Ryan Gale Date: 11/25/2021 Time: 10:54 PM documented in this encounterMercy Health Allen Hospital09-08-2022 History of Present illness Narrative* Luciana Zuniga RN - 10/28/2021 3:04 PM EDT [facility] Enrollment Provider Action/FYI: lvm x 1 and [facility] Patient referred by: PCC/PCP referral Contact made with patient: No - Left Message: Hi my name is Luciana Zuniga RN and I am calling from the [facility] on behalf of your PCP, Amos Floyd MD. We are excited to share with you a new program to help you manage your health. Please call me back at [phone] between the hours of 8am-5pm Monday-Monday. You will receive another phone call from me within the next two businessdays. I hope you can take the time to speak with me. (Keep encounter open and attempt 2nd outreachin two business days from today) END OUTREACH documented in this encounterMercy Health Allen Hospital08-25-2022 Miscellaneous Notes* Telephone Encounter - Milagros [...] return to express care. 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[place]'s disease Cystocele, midline 07/23/2007 Diverticulosis of colon (without mention of hemorrhage) DVT (deep venous thrombosis) ([facility]) 03/23/2012 DVT of lower extremity (deep venous thrombosis) ([facility]) 03/27/09 Esophageal reflux Gallstones 03/06/2016 Hypercalcemia 03/19/2009 Hypertension NSTEMI (non-ST elevated myocardial infarction) ([facility]) April 27, 2009 Cardiac cath normal Other [...] W/COLLJ SPEC WHEN PFRMD 03/26/2010 Inpatient at [facility] ESOPHAGOGASTRODUODENOSCOPY TRANSORAL DIAGNOSTIC 02/2002 EGD ESOPHAGOGASTRODUODENOSCOPY [...] daily. dupilumab 300 mg/2 mL subcutaneous syringe ([place] [employer]) Inject 300 mg SQ every 2 weeks [...] Age of Onset Coronary Artery Disease Mother [place] at 87y.o. Hypertension Mother Stroke Father Coronary [...] illness Irene Mendenhall APRN.CNP documented in this encounterMercy Health Allen Hospital08-24-2022 Instructions* Patient Instructions* Irene Mendenhall APRN.CNP [...] to your local emergency facility: Notify the dairy processing equipment operator that you are seeking care for [...] or concerning to you. documented in this encounterMercy Health Allen Hospital07-06-2022 Instructions* Patient Instructions* Nevin Lee PA-C - 08/25/2021 1:44 PM EDT Images from the original note were not included. documented in this encounterMercy Health Allen Hospital07-06-2022 History of Present illness Narrative* Nevin [...] Past Histories independently gathered by the clinical human resources support specialist. Nevin Lee MS, REJI documented in this encounterMercy Health Allen Hospital05-31-2022 History of Present illness Narrative* Amos Floyd MD - 07/20/2021 9:15 AM EDT This note was created using CloudFloor. Subjective Linda Peralta is a 76 year [...] TOP) Amos Floyd MD documented in this encounterMercy Health Allen Hospital01-19-2017 History of Past illness Narrative* Problem [...] ASA, plavix 300, atorvastatin - plan [facility] tomorrow. Hypokalemia 04/09/2009 05/14/2009 Overview: -Replete. [...] of this encounter (statuses as of 07/20/2021) [facility]01-19-2017 History of Past illness Narrative* Problem [...] ASA, plavix 300, atorvastatin - plan [facility] tomorrow. Hypokalemia 04/09/2009 05/14/2009 Overview: -Replete. [...] of this encounter (statuses as of 08/25/2021) [facility]01-19-[facility] History of Past illness Narrative* Problem [...] ASA, plavix 300, atorvastatin - plan [facility] tomorrow. Hypokalemia 04/09/2009 05/14/2009 Overview: -Replete. [...] of this encounter (statuses as of 10/13/2021) [facility]01[facility] of Past illness Narrative* Problem [...] ASA, plavix 300, atorvastatin - plan [facility] tomorrow. Hypokalemia 04/09/2009 05/14/2009 Overview: -Replete. [...] of this encounter (statuses as of 10/14/2021) [facility]01[facility] of Past illness Narrative* Problem [...] ASA, plavix 300, atorvastatin - plan [facility] tomorrow. Hypokalemia 04/09/2009 05/14/2009 Overview: -Replete. [...] of this encounter (statuses as of 10/28/2021) [facility] of Past illness Narrative* Problem [...] ASA, plavix 300, atorvastatin - plan [facility] tomorrow. Hypokalemia 04/09/2009 05/14/2009 Overview: -Replete. [...] of this encounter (statuses as of 11/26/2021) [facility] of Past illness Narrative* Problem [...] ASA, plavix 300, atorvastatin - plan [facility] tomorrow. Hypokalemia 04/09/2009 05/14/2009 Overview: -Replete. [...] of this encounter (statuses as of 12/03/2021) [facility] of Past illness Narrative* Problem [...] ASA, plavix 300, atorvastatin - plan [facility] tomorrow. Hypokalemia 04/09/2009 05/14/2009 Overview: -Replete. [...] of this encounter (statuses as of 12/06/2021) [facility]01[facility] of Past illness Narrative* Problem [...] ASA, plavix 300, atorvastatin - plan [facility] tomorrow. Hypokalemia 04/09/2009 05/14/2009 Overview: -Replete. [...] of this encounter (statuses as of 12/09/2021) [facility] of Past illness Narrative* Problem [...] ASA, plavix 300, atorvastatin - plan [facility] tomorrow. Hypokalemia 04/09/2009 05/14/2009 Overview: -Replete. [...] of this encounter (statuses as of 12/10/2021) [facility] of Past illness Narrative* Problem [...] ASA, plavix 300, atorvastatin - plan [facility] tomorrow. Hypokalemia 04/09/2009 05/14/2009 Overview: -Replete. [...] of this encounter (statuses as of 12/20/2021) [facility] of Past illness Narrative* Problem [...] ASA, plavix 300, atorvastatin - plan [facility] tomorrow. Hypokalemia 04/09/2009 05/14/2009 Overview: -Replete. [...] of this encounter (statuses as of 02/25/2022) [facility] illness Narrative* Problem [...] ASA, plavix 300, atorvastatin - plan [facility] tomorrow. Hypokalemia 04/09/2009 05/14/2009 Overview: -Replete. [...] of this encounter (statuses as of 03/15/2022) [facility] of [facility] illness Narrative* Problem [...] ASA, plavix 300, atorvastatin - plan [facility] tomorrow. Hypokalemia 04/09/2009 05/14/2009 Overview: -Replete. [...] of this encounter (statuses as of 03/16/2022) [facility] illness Narrative* Problem [...] ASA, plavix 300, atorvastatin - plan [facility] tomorrow. Hypokalemia 04/09/2009 05/14/2009 Overview: -Replete. [...] of this encounter (statuses as of 06/06/2022) [facility] of [facility] illness Narrative* Problem [...] ASA, plavix 300, atorvastatin - plan [facility] tomorrow. Hypokalemia 04/09/2009 05/14/2009 Overview: -Replete. [...] of this encounter (statuses as of 07/20/2022) [facility] illness Narrative* Problem [...] ASA, plavix 300, atorvastatin - plan [facility] tomorrow. Hypokalemia 04/09/2009 05/14/2009 Overview: -Replete. [...] of this encounter (statuses as of 07/23/2022) [facility] illness Narrative* Problem [...] ASA, plavix 300, atorvastatin - plan [facility] tomorrow. Hypokalemia 04/09/2009 05/14/2009 Overview: -Replete. [...] of this encounter (statuses as of 07/27/2022) [facility] illness Narrative* Problem [...] ASA, plavix 300, atorvastatin - plan [facility] tomorrow. Hypokalemia 04/09/2009 05/14/2009 Overview: -Replete. [...] of this encounter (statuses as of 09/20/2022) [facility] Narrative* Problem [...] ASA, plavix 300, atorvastatin - plan [facility] tomorrow. Hypokalemia 04/09/2009 05/14/2009 Overview: -Replete. [...] of this encounter (statuses as of 10/27/2022) [facility] Narrative* Problem [...] ASA, plavix 300, atorvastatin - plan [facility] tomorrow. Hypokalemia 04/09/2009 05/14/2009 Overview: -Replete. [...] of this encounter (statuses as of 11/01/2022) [facility] Narrative* Problem [...] ASA, plavix 300, atorvastatin - plan [facility] tomorrow. Hypokalemia 04/09/2009 05/14/2009 Overview: -Replete. [...] of this encounter (statuses as of 11/08/2022) [facility] Narrative* Problem [...] ASA, plavix 300, atorvastatin - plan [facility] tomorrow. Hypokalemia 04/09/2009 05/14/2009 Overview: -Replete. [...] of this encounter (statuses as of 12/02/2022) [facility] Narrative* Problem [...] ASA, plavix 300, atorvastatin - plan [facility] tomorrow. Hypokalemia 04/09/2009 05/14/2009 Overview: -Replete. [...] of this encounter (statuses as of 12/19/2022) [facility] Narrative* Problem [...] ASA, plavix 300, atorvastatin - plan [facility] tomorrow. Hypokalemia 04/09/2009 05/14/2009 Overview: -Replete. [...] of this encounter (statuses as of 12/25/2022) [facility] Narrative* Problem [...] ASA, plavix 300, atorvastatin - plan [facility] tomorrow. Hypokalemia 04/09/2009 05/14/2009 Overview: -Replete. [...] of this encounter (statuses as of 01/19/2023) [facility] Narrative* Problem [...] ASA, plavix 300, atorvastatin - plan [facility] tomorrow. Hypokalemia 04/09/2009 05/14/2009 Overview: -Replete. [...] of this encounter (statuses as of 01/19/2023) [facility] Narrative* Problem [...] ASA, plavix 300, atorvastatin - plan [facility] tomorrow. Hypokalemia 04/09/2009 05/14/2009 Overview: -Replete. [...] of this encounter (statuses as of 03/24/2023) [facility] Narrative* Problem [...] ASA, plavix 300, atorvastatin - plan [facility] tomorrow. Hypokalemia 04/09/2009 05/14/2009 Overview: -Replete. [...] of this encounter (statuses as of 03/28/2023) [facility] Narrative* Problem [...] ASA, plavix 300, atorvastatin - plan [facility] tomorrow. Hypokalemia 04/09/2009 05/14/2009 Overview: -Replete. [...] encounter (statuses as of 04/03/2023) [facility] Narrative* Problem [...] ASA, plavix 300, atorvastatin - plan [facility] tomorrow. Hypokalemia 04/09/2009 05/14/2009 Overview: -Replete. [...] of this encounter (statuses as of 04/11/2023) [facility] Narrative* Problem [...] ASA, plavix 300, atorvastatin - plan [facility] tomorrow. Hypokalemia 04/09/2009 05/14/2009 Overview: -Replete. [...] of this encounter (statuses as of 05/02/2023) [facility] Narrative* Problem [...] ASA, plavix 300, atorvastatin - plan [facility] tomorrow. Hypokalemia 04/09/2009 05/14/2009 Overview: -Replete. [...] of this encounter (statuses as of 05/09/2023) [facility] Narrative* Problem [...] ASA, plavix 300, atorvastatin - plan [facility] tomorrow. Hypokalemia 04/09/2009 05/14/2009 Overview: -Replete. [...] of this encounter (statuses as of 05/15/2023) [facility] Narrative* Problem [...] ASA, plavix 300, atorvastatin - plan [facility] tomorrow. Hypokalemia 04/09/2009 05/14/2009 Overview: -Replete. [...] of this encounter (statuses as of 05/23/2023) [facility] Narrative* Problem [...] ASA, plavix 300, atorvastatin - plan [facility] tomorrow. Hypokalemia 04/09/2009 05/14/2009 Overview: -Replete. [...] of this encounter (statuses as of 05/23/2023) [facility] Narrative* Problem [...] ASA, plavix 300, atorvastatin - plan [facility] tomorrow. Hypokalemia 04/09/2009 05/14/2009 Overview: -Replete. [...] of this encounter (statuses as of 05/24/2023) [facility] Narrative* Problem [...] ASA, plavix 300, atorvastatin - plan [facility] tomorrow. Hypokalemia 04/09/2009 05/14/2009 Overview: -Replete. [...] of this encounter (statuses as of 05/25/2023) [facility] Narrative* Problem [...] ASA, plavix 300, atorvastatin - plan [facility] tomorrow. Hypokalemia 04/09/2009 05/14/2009 Overview: -Replete. [...] of this encounter (statuses as of 06/01/2023) [facility] Narrative* Problem [...] ASA, plavix 300, atorvastatin - plan [facility] tomorrow. Hypokalemia 04/09/2009 05/14/2009 Overview: -Replete. [...] of this encounter (statuses as of 06/01/2023) [facility] Narrative* Problem [...] ASA, plavix 300, atorvastatin - plan [facility] tomorrow. Hypokalemia 04/09/2009 05/14/2009 Overview: -Replete. [...] of this encounter (statuses as of 06/01/2023) [facility] Narrative* Problem [...] ASA, plavix 300, atorvastatin - plan [facility] tomorrow. Hypokalemia 04/09/2009 05/14/2009 Overview: -Replete. [...] of this encounter (statuses as of 06/09/2023) [facility] Narrative* Problem [...] ASA, plavix 300, atorvastatin - plan [facility] tomorrow. Hypokalemia 04/09/2009 05/14/2009 Overview: -Replete. [...] of this encounter (statuses as of 06/12/2023) [facility] Evaluation note* Diagnosis Onset Date Resolution Status Essential (primary) hypertension chronic History of pulmonary embolism chronic Hyperlipidemia chronic History of non-ST elevation myocardial infarction (NSTEMI) April, resolved [facility] Work Phone: Discharge summary Author Jairo Mitchell [facility] Note Date/Time August 09, 2024 2:56 pm [facility] Medical Records Department [address] [place] [address] Discharge Summary 08/09/24 1437 MR#: [id number] Acct: [id number] Name: LINDA PERALTA Rep #:[id number] : [id number] 79 From: Jairo Mitchell DO PCP: Dr. Amos Floyd MD Status:A DM IN [facility] Prov[facility] Date of Admission: 08/07/24 [...] mg/mL subcutaneous syringe (Prolia) 60 mg subcut [id number] #1 mL 11/24/22 nitroglycerin 0.4 mg sublingual [...] rather adrenal insufficiency due topatient is known [place]'s disease on chronic hydrocortisone having urinary tract [...] 81.0 H, Lymph % (Auto) 7.4 L, [place] % (Auto) 9.5, Eos % (Auto) 0.2, [...] to being on chronic steroids with your [place]'sdisease and you will be on a prednisone [...] Prolia 60 mg/mL syringe 60 mg subcut [id number] Qty: 1 1RF nitroglycerin 0.4 mg tablet, [...] Self Care Charges/Coding Visit Charges Inpatient E&M: 23608 Disch Hosp >30min 08/09/24 1456 <Electronically signed by Jairo Mitchell DO> Cosigner Signature (if applicable): CC: Dr. Jairo Mitchell DO; Dr. Amos Floyd MD~ Signed [facility] Work Phone: Evaluation note* Diagnosis Onset Date Resolution Status Chest pain acute Essential (primary) hypertension acute History of pulmonary embolism chronic Hyperlipidemia chronic [facility] Work Phone: Evaluation note* Diagnosis Adrenal hypofunction (HCC)- Primary Glucocorticoid deficiency Primary hypertension Unspecified essential hypertension ASHD (arteriosclerotic heart disease) Coronary atherosclerosis of unspecified type of vessel, rincon or graft Hip pain Pain in joint, pelvic region and thigh Need for COVID-19 vaccine [facility] [place] [facility] Diagnosis Onset Date Resolution Status Chest pain acute Essential (primary) hypertension chronic History of pulmonary embolism chronic Hyperlipidemia chronic Essential (primary) hypertension chronic History of pulmonary embolism chronic Hyperlipidemia [facility] Work Phone: Evaluation note* Diagnosis Onset Date Resolution Status Essential (primary) hypertension chronic History of pulmonary embolism chronic Hyperlipidemia [facility] Work Phone: Evaluation note* Diagnosis Atopic neurodermatitis- Primary Other atopic dermatitis and related conditions [facility] [place] [facility]* Diagnosis Suspected COVID-19 virus infection- Primary [facility] [place] [facility]* Diagnosis Stage 3b chronic kidney disease (HCC)- Primary [facility] [place] [facility]* Diagnosis Onset Date Resolution Status ANGELA (acute kidney injury) ac louise Elevated troponin acute Hypotension acute [place] disease chronic Chronic kidney disease chron ic [facility] Work Phone: Evaluation note* Diagnosis Onset Date Resolution Status [place] disease acute ANGELA (acute kidney injury) ac louise Elevated troponin acute Hypotension acute Chronic kidney disease chron ic 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, 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 [facility] Work Phone: Evaluation note* Diagnosis Atopic neurodermatitis- Primary Other atopic dermatitis and related conditions [facility] [place] [facility]* Diagnosis Onset Date Resolution Status ANGELA (acute kidney injury) re solved Elevated troponin resolved Hypotension resolved [facility] Work Phone: Evaluation note* Diagnosis Pure hypercholesterolemia [facility] [place] [facility]* Diagnosis Hypotension due to hypovolemia- Primary Elevated troponin Other abnormal blood chemistry Acute kidney injury (HCC) Acute kidney failure, unspecified Stage 3b chronic kidney disease (HCC) Hypercalcemia Anticoagulated on Coumadin Encounter for therapeutic drug monitoring Breast pain, left Mastodynia Encounter for screening mammogram for malignant neoplasm of breast Other screening mammogram [facility] [place] [facility]* Diagnosis Encounter for screening mammogram for malignant neoplasm of breast Other screening mammogram [facility] [place] [facility]* Diagnosis Medicare annual wellness visit, subsequent- Primary Routine general medical examination at [facility] care facility Hypertension, unspecified type Pure hypercholesterolemia Encounter for immunization Need for other specified prophylactic vaccination against single bacterial disease [facility] Diagnosis Onset Date Resolution Status [place] disease acute ANGELA (acute kidney injury) re solved Elevated troponin resolved Hypotension resolved Moris disease acute Osteoporosis acute Essential (primary) hypertension chronic History of pulmonary embolism chronic Hyperlipidemia chronic History of non-ST elevation myocardial infarction (NSTEMI) April, resolved [facility] Work Phone: evaluation note* Diagnosis Onset Date Resolution Status [place] disease acute ANGELA (acute kidney injury) re solved Elevated troponin resolved Hypotension resolved [place] disease acute Osteoporosis acute Essential (primary) hypertension chronic History of pulmonary embolism chronic Hyperlipidemia chronic History of non-ST elevation myocardial infarction (NSTEMI) April, resolved Essential (primary) hypertension chronic History of pulmonary embolism chronic Hyperlipidemia chronic History of non-ST elevation myocardial infarction (NSTEMI) April, resolved [facility] Work Phone: evaluation note* Diagnosis Atopic neurodermatitis- Primary Other atopic dermatitis and related conditions [facility] [place] [facility]* Diagnosis Atopic neurodermatitis Other atopic dermatitis and related conditions documented in this encounter [facility] note* Diagnosis Onset Date Resolution Status [place] disease acute Osteoporosis acute Essential (primary) hypertension chronic History of pulmonary embolism chronic Hyperlipidemia chronic History of non-ST elevation myocardial infarction (NSTEMI) April, resolved Essential (primary) hypertension chronic History of pulmonary embolism chronic Hyperlipidemia chronic History of non-ST elevation myocardial infarction (NSTEMI) April, resolved [facility] Work Phone: evaluation noteNo assessment information available [facility] Work Phone: evaluation note* Diagnosis Primary hypertension- Primary Unspecified essential hypertension Pure hypercholesterolemia Stage 3b chronic kidney disease (HCC) ASHD (arteriosclerotic heart disease) Coronary atherosclerosis of unspecified type of vessel, rincon or graft Osteopenia, unspecified location [facility] [place] [facility] Diagnosis Onset Date Resolution Status Aortic stenosis acute MVP (mitral valve prolapse) acute Chronic kidney disease, stage 3 chronic Essential (primary) hypertension chronic History of pulmonary embolism chronic Hyperlipidemia chronic History of non-ST elevation myocardial infarction (NSTEMI) April, resolved [facility] Work Phone: Evaluation note* Diagnosis Hip pain, unspecified laterality- Primary Stage 3b chronic kidney disease (HCC) Deep vein thrombosis (DVT) of lower extremity, unspecified chronicity, unspecified laterality, unspecified vein (HCC) Need for influenza vaccination Need for prophylactic vaccination and inoculation against influenza documented [facility] this [facility] [place] [facility]* Diagnosis Hip pain, unspecified laterality [M25.559]- Primary documented in this encounter [facility] note* Diagnosis Foot pain, right- Primary Pain in limb Closed fracture of right foot, initial encounter [facility] [place] [facility]* Diagnosis Pure hypercholesterolemia documented in [facility] [place] [facility]* Diagnosis Closed displaced fracture of fifth metatarsal bone of right foot, initial encounter- Primary documented [facility] [place] [facility]* Diagnosis Onset Date Resolution Status [place] disease chronic Osteoporosis chronic [facility] Work Phone: Evaluation note* Diagnosis Closed displaced fracture of fifth metatarsal bone of right foot, initial encounter documented [facility] this [facility] [place] [facility]* Diagnosis Closed displaced fracture of fifth metatarsal bone of right foot, initial encounter documented in this [facility] [place] [facility]* Diagnosis Closed displaced fracture of fifth metatarsal bone of right foot, initial encounter documented [facility] this [facility] [place] [facility]* Diagnosis Medicare annual wellness visit, subsequent- [...] COVID-19 vaccine Hypercalcemia [facility] Diagnosis Onset Date Resolution Status [place] disease chronic Osteoporosis chronic Aortic stenosis acute Dizziness acute MVP (mitral valve prolapse) acute Chronic kidney disease, stage 3 chronic Essential (primary) hypertension chronic History of pulmonary embolism chronic Hyperlipidemia chronic History of non-ST elevation myocardial infarction (NSTEMI) April, resolved [facility] Work Phone: Evaluation note* Diagnosis Gait abnormality- Primary Abnormality of gait Hip pain, unspecified laterality Closed displaced fracture of fifth metatarsal bone of right foot with delayed healing, subsequent encounter [facility] Diagnosis Gait abnormality- Primary Abnormality of gait Hip pain, unspecified laterality Closed displaced fracture of fifth metatarsal bone of right foot with delayed healing, subsequent encounter [facility] Diagnosis Onset Date Resolution Status Aortic stenosis acute Dizziness acute MVP (mitral valve prolapse) acute Chronic kidney disease, stage 3 chronic Essential (primary) hypertension chronic History of pulmonary embolism chronic Hyperlipidemia chronic History of non-ST elevation myocardial infarction (NSTEMI) April, [facility] Work Phone: Evaluation note* Diagnosis Gait abnormality- Primary Abnormality of gait Hip pain, unspecified laterality Closed displaced fracture of fifth metatarsal bone of right foot with delayed healing, subsequent encounter [facility] Diagnosis Hypercalcemia- Primary [facility]* Diagnosis Hypercalcemia- Primary Fatigue, unspecified type Urinary frequency Myalgias Confusion Unspecified psychosis Weakness Other malaise and fatigue [facility] [place] [facility]* Diagnosis Hypercalcemia- Primary Moris's disease (CMS/HCC) Glucocorticoid deficiency Anemia in chronic kidney disease Chronic kidney disease Chronic kidney disease, unspecified Generalized muscle weakness Muscle weakness (generalized) Hypertensive kidney disease with stage 3b chronic kidney disease (CMS/HCC) Urinary tract infection, site not specified documented in this encounter [facility] Work Phone: Evaluation note* Diagnosis Physical deconditioning- Primary Debility, unspecified Muscle weakness Muscle weakness (generalized) Gait abnormality Abnormality of gait [facility] Diagnosis Other specified hypotension- Primary Moris's disease (HCC) Glucocorticoid deficiency Hypercalcemia [facility] Diagnosis Gait abnormality- Primary Abnormality of gait Physical deconditioning Debility, unspecified Weakness Other malaise and fatigue [facility] Diagnosis Physical deconditioning- Primary Debility, unspecified Gait abnormality Abnormality of gait Muscle weakness Muscle weakness (generalized) [facility] Diagnosis Physical deconditioning- Primary Debility, unspecified Gait abnormality Abnormality of gait Weakness Other malaise and fatigue [facility] Physical deconditioning- Primary Debility, unspecified Gait abnormality Abnormality of gait Weakness Other malaise and fatigue [facility] Diagnosis Hypercalcemia- Primary Age-related osteoporosis with current pathological fracture with routine healing Aftercare for healing pathologic fracture of other bone Hypokalemia Hypopotassemia Adrenal hypofunction (HCC) Glucocorticoid deficiency NSTEMI (non-ST elevated myocardial infarction) (HCC) Acute myocardial infarction, subendocardial infarction, episode of care unspecified ASHD (arteriosclerotic heart disease) Coronary atherosclerosis of unspecified type of vessel, rincon or graft Nonrheumatic aortic valve stenosis Aortic valve disorders [facility] [place] [facility]* Diagnosis Physical deconditioning- Primary Debility, unspecified Gait abnormality Abnormality of gait Weakness Other malaise and fatigue [facility] Diagnosis Physical deconditioning- Primary Debility, unspecified Gait abnormality Abnormality of gait Weakness Other malaise and fatigue [facility] Diagnosis Primary hypertension- Primary Unspecified essential hypertension Hypercalcemia Adrenal hypofunction (HCC) Glucocorticoid deficiency Nonrheumatic aortic valve stenosis Aortic valve disorders [facility] [place] [facility] Diagnosis Abnormal finding of diagnostic imaging- Primary Other nonspecific (abnormal) findings on radiological and other examinations of body structure [facility] Diagnosis Physical deconditioning- Primary Debility, unspecified Gait abnormality Abnormality of gait Weakness Other malaise and fatigue [facility] Physical deconditioning- Primary Debility, unspecified Gait abnormality Abnormality of gait Weakness Other malaise and fatigue [facility] Diagnosis Physical deconditioning- Primary Debility, unspecified Gait abnormality Abnormality of gait Weakness Other malaise and fatigue [facility] Diagnosis Foot pain, right Pain in limb [facility] Diagnosis Hip pain, unspecified laterality [facility] Diagnosis Age-related osteoporosis with current pathological fracture with routine healing- Primary Aftercare for healing pathologic fracture of other bone Hypercalcemia Adrenal hypofunction (HCC) Glucocorticoid deficiency [facility] Diagnosis Pure hypercholesterolemia [facility]* Diagnosis Age-related osteoporosis with current pathological fracture with routine healing- Primary Aftercare for healing pathologic fracture of other bone [facility]* Diagnosis Age-related osteoporosis with current pathological fracture with routine healing- Primary Aftercare for healing pathologic fracture of other bone [facility]* Diagnosis Abnormal finding of diagnostic imaging- Primary Other nonspecific (abnormal) findings on radiological and other examinations of body structure [facility]* Diagnosis Abnormal finding of diagnostic imaging- Primary Other nonspecific (abnormal) findings on radiological and other examinations of body structure [facility]* Diagnosis Abnormal finding of diagnostic imaging Other nonspecific (abnormal) findings on radiological and other examinations of body structure [facility]* Diagnosis Age-related osteoporosis with current pathological fracture with routine healing- Primary Aftercare for healing pathologic fracture of other bone [facility]* Diagnosis Nodule of lower lobe of right lung needing follor up CT- Primary [facility]* Diagnosis Medicare annual wellness visit, subsequent- [...] Coronary atherosclerosis of unspecified type of vessel, rincon or graft Primary hypertension Unspecified essential hypertension Nonrheumatic aortic valve stenosis Aortic valve disorders Subconjunctival hemorrhage of left eye Chronic nonallergic rhinitis Chronic rhinitis Stage 3b chronic kidney disease (HCC) Adrenal insufficiency (HCC) Glucocorticoid deficiency Encounter for immunization Need for other specified prophylactic vaccination against single bacterial disease documented in this encounter [facility] note* Diagnosis Acute deep vein thrombosis (DVT) of proximal vein of both lower extremities (HCC)- Primary Other specified hypotension Adrenal insufficiency (HCC) Glucocorticoid deficiency Nonrheumatic aortic valve stenosis Aortic valve disorders Acute cystitis without hematuria Acute cystitis documented in this encounter [facility] note* Diagnosis Acute cystitis without hematuria- Primary Acute cystitis documented in this encounter [facility] note* Diagnosis Acute deep vein thrombosis (DVT) [...] study, right side. documented in this encounter [facility] note* Diagnosis Urinary tract infection without hematuria, site unspecified- Primary documented in this encounter [facility] note* Diagnosis Severe aortic stenosis- Primary Aortic valve disorders documented in this encounter [facility]* Diagnosis Nonrheumatic aortic valve stenosis- Primary documented in this encounter [facility] note* Diagnosis Recurrent UTI- Primary Urinary tract infection, site not specified documented in this encounter [facility] note* Diagnosis Aortic valve stenosis, etiology of cardiac valve disease unspecified- Primary Deep vein thrombosis (DVT) of proximal vein of both lower extremities, unspecified chronicity (HCC) Acute systolic heart failure (HCC) Acute systolic heart failure [place]'s disease (HCC) Glucocorticoid deficiency Renal insufficiency Unspecified disorder of kidney and ureter Recurrent UTI Urinary tract infection, site not specified documented in this encounter [facility] note* Diagnosis Nonrheumatic aortic valve stenosis [facility] Diagnosis Recurrent UTI- Primary Urinary tract infection, site not specified History of kidney stones Personal history of urinary calculi documented in this encounter [facility] note* Diagnosis Aortic valve stenosis, etiology of cardiac valve disease unspecified- Primary Deep vein thrombosis (DVT) of proximal vein of both lower extremities, unspecified chronicity (HCC) Acute systolic heart failure (HCC) Acute systolic heart failure [place]'s disease (HCC) Glucocorticoid deficiency Renal insufficiency Unspecified disorder of kidney and ureter Recurrent UTI Urinary tract infection, site not specified [facility] [place] [facility]* Diagnosis Renal insufficiency- Primary Unspecified disorder of kidney and ureter [facility] Diagnosis Renal insufficiency- Primary Unspecified disorder of kidney and ureter [facility] Diagnosis Renal insufficiency- Primary Unspecified disorder of kidney and ureter [facility] Diagnosis Renal insufficiency- Primary Unspecified disorder of kidney and ureter [facility] Diagnosis Severe aortic stenosis- Primary Aortic valve disorders Severe aortic stenosis- Primary Aortic valve disorders Stage 3 chronic kidney disease, unspecified whether stage 3a or 3b CKD (HCC) Acute deep vein thrombosis (DVT) of right lower extremity, unspecified vein (HCC) Acute systolic heart failure (HCC) Acute systolic heart failure [place]'s disease (HCC) Glucocorticoid deficiency [facility] [place] [facility]* Diagnosis Severe aortic stenosis- Primary Aortic valve disorders Severe aortic stenosis- Primary Aortic valve disorders Severe aortic stenosis Aortic valve disorders [facility] Diagnosis Nonrheumatic aortic valve stenosis- Primary [facility] Diagnosis Severe aortic stenosis- Primary Aortic valve disorders Severe aortic stenosis Aortic valve disorders Aortic valve stenosis, etiology of cardiac valve disease unspecified Syncope and collapse Severe aortic stenosis Aortic valve disorders [facility] Diagnosis Severe aortic stenosis- Primary Aortic valve disorders [facility] [place] [facility]* Diagnosis S/p TAVR (transcatheter aortic valve replacement), bioprosthetic- Primary Pure hypercholesterolemia Encounter for immunization Need for other specified prophylactic vaccination against single bacterial disease Stage 3b chronic kidney disease (HCC) Hypertensive kidney disease with stage 3b chronic kidney disease (HCC) Nonrheumatic aortic valve stenosis Aortic valve disorders [facility] [place] [facility]* Diagnosis Severe aortic stenosis- Primary Aortic valve disorders Stage 3b chronic kidney disease (HCC) [place]'s disease (HCC) Glucocorticoid deficiency Chronic systolic heart failure (HCC) Chronic systolic heart failure Deep vein thrombosis (DVT) of proximal vein of both lower extremities, unspecified chronicity (HCC) [facility] [place] [facility]* Diagnosis Severe aortic stenosis- Primary Aortic valve disorders [facility] Diagnosis Severe aortic stenosis- Primary Aortic valve disorders [facility] [place] note* Diagnosis Chronic systolic heart failure (HCC)- Primary Chronic systolic heart failure S/P TAVR (transcatheter aortic valve replacement) Deep vein thrombosis (DVT) of proximal vein of both lower extremities, unspecified chronicity (HCC) Stage 3b chronic kidney disease (CMS/HCC) Moris's disease (HCC) Glucocorticoid deficiency [facility] [place] [facility] Diagnosis Severe aortic stenosis Aortic valve disorders [facility] [place] [facility] Diagnosis Chronic systolic heart failure (HCC)- Primary Chronic systolic heart failure S/P TAVR (transcatheter aortic valve replacement) Deep vein thrombosis (DVT) of proximal vein of both lower extremities, unspecified chronicity (HCC) Stage 3b chronic kidney disease (CMS/HCC) Moris's disease (HCC) Glucocorticoid deficiency documented in this encounter [facility] Discharge instructionsAmbulatory Orders* Phase II, Outpatient Cardiac Rehab Location: [facility] Work Phone: Progress note Author Jordan Marte [facility] Note Date/Time November 14, 2024 9:32am [facility] [address] [place] [address] OFFICE VISIT Date of Service: 11/14/24 MR#: [id number] Acct: [id number] Name: LINDA PERALTA Rep #: [id number] : 1945 Provider: Dr. Jarocho Marte MD Age/Sex: 79/F [place] [facility] [place] Signed HPI HPI History of Present [...] know that she has a history of [place]'s disease and also has a partial nephrectomy. [...] Monitor Intake Visit Reasons: 6 M FU Knocker Off Required: No Accompanied by: Daughter Is patient in pain?: No Allergies ciprofloxacin (From Cipro) Allergy (Verified 11/14/24 09:05) Rash Penicillins Allergy (Verified 11/14/24 09:05) Rash Medications ?Medication ?Instructions ?Recorded ?Confirmed ?Type acetaminophen 500 mg tablet 1,000 mg (2 x 500 mg) PO Q 6H PRN 04/08/20 11/14/24 Rx Pain Score 1-10 denosumab 60 mg/mL subcutaneous 60 mg subcut [id number] #1 mL 11/24/22 11/14/24 Rx syringe (Prolia) nitroglycerin 0.4 mg sublingual 0.4 mg sublingual Q5-1 5M PRN 07/26/23 11/14/24 Rx tablet Cardiac/Chest Pain #25 tabs methenamine hippurate 1 gram tablet 1 g PO QHS 5 11/14/24 History Held on 08/09/24. 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 Echocardiogram 06/12/2023?[facility]: Left ventricle is normal in size. [...] does follow with nephrology for this. 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: Status: Inactive Plan: [...] unspecified Chronic kidney disease, stage 3 N18.3 shelter (current) use of anticoagulants Z79.01 S/P TAVR (transcatheter aortic valve replacement) Z95.2 Coding Level of Care Code Off vis,est,level 4 Diagnoses MVP (mitral valve prolapse) I34.1 History of non-ST elevation myocardial infarction (NSTEMI) I25.2 Essential (primary) hypertension I10 Hyperlipidemia, unspecified hyperlipidemia type E78.5 Hyperlipidemia type: unspecified Chronic kidney disease, stage 3 N18.3 shelter (current) use of anticoagulants Z79.01 S/P TAVR (transcatheter aortic valve replacement) Z95.2 Clinical Quality Measures Falls Risk Screening/Assistive Devices Have you fallen in the past year?: No Cardiac Ejection fraction %: 47 11/14/24 0935 <Electronically signed by Jordan Gaitan> Date _ Jordan Marte MD Cosigner Signature: Date (if applicable) CC: Dr. Amos Floyd MD ~ [place] [employer] [facility] Work Phone: Reason for referral (narrative)* Diagnostic Procedure Only (Routine) - Authorized Specialty Diagnoses / Procedures Referred By Contac t Referred To Contact BR IMAGING Diagnoses Encounter for screening mammogram for malignant neoplasm of breast Procedures TAE SCREENING SCREENING MAMMOGRAPHY BI 2-VIEW BREAST INC CAD Amos Floyd MD [address] [place] [address] Br Imaging [address] [place] [address] Referral ID Status Reason Start Date Expiration Date Visits Requested Visits Authorized [id number] Authorized Auto-Generat ed Referral 2 01/05/2023 1 1 [facility] for referral (narrative)* Diagnostic Procedure Only (Routine) - Closed Specialty Diagnoses / Procedures Referred By Contac t Referred To Contact BR IMAGING Diagnoses Encounter for screening mammogram for malignant neoplasm of breast Procedures TAE SCREENING SCREENING MAMMOGRAPHY BI 2-VIEW BREAST INC CAD Amos Floyd MD [address] [place] [address] [facility] Imaging [address] [place] [address] Referral ID Status Reason Start Date Expiration Date V isits Requested Visits Authorized [id number] Closed Auto-Generate d Referral 12/06/2021 01/05/2023 1 1 T [facility] for referral (narrative)* Diagnostic Procedure Only (Routine) - Pending Review Specialty Diagnoses / Procedures Referred By Contac t Referred To Contact XR IMAGING Diagnoses Closed displaced fracture of fifth metatarsal bone of right foot, initial encounter Procedures XR FOOT GENERAL 3V AP/LAT/OBL RIGHT RADEX FOOT COMPLETE MINIMUM 3 VIEWS Omar Cruz [address] [place] [address] [place] [address] Referral ID Status Reason Start Date Expiration Date Visits Requested Visits Authorized [id number] Pending Review Auto-Generat ed Referral 3 01/18/2024 1 1 [facility] for referral (narrative)* Diagnostic Procedure Only (Routine) - Closed Specialty Diagnoses / Procedures Referred By Contac t Referred To Contact XR IMAGING Diagnoses Closed displaced fracture of fifth metatarsal bone of right foot, initial encounter Procedures XR FOOT GENERAL 3V AP/LAT/OBL RIGHT RADEX FOOT COMPLETE MINIMUM 3 VIEWS Omar Cruz [address] [place] [address] [place] [address] Referral ID Status Reason Start Date Expiration Date V isits Requested Visits Authorized [id number] Closed Auto-Generate d Referral 12/17/2022 12/17/2023 1 1 [facility] for referral (narrative)* Diagnostic Procedure Only (Routine) - Closed Specialty Diagnoses / Procedures Referred By Contac t Referred To Contact XR IMAGING Diagnoses Closed displaced fracture of fifth metatarsal bone of right foot, initial encounter Procedures XR FOOT GENERAL 3V AP/LAT/OBL RIGHT RADEX FOOT COMPLETE MINIMUM 3 VIEWS Omar Cruz [address] [place] [address] [place] [address] Referral ID Status Reason Start Date Expiration Date V isits Requested Visits Authorized [id number] Closed Auto-Generate d Referral 11/17/2022 12/17/2023 1 1 T [facility] for referral (narrative)* Diagnostic Procedure Only (Urgent) - Closed Specialty Diagnoses / Procedures Referred By Contac t Referred To Contact XR IMAGING Diagnoses Foot pain, right Procedures XR FOOT GENERAL 3V AP/LAT/OBL RIGHT RADEX FOOT COMPLETE MINIMUM 3 VIEWS Jacinda Enriquez, DESIGN ENGINE[employer] [address] [place] [address] [place] [address] Referral ID Status Reason Start Date Expiration Date V isits Requested Visits Authorized [id number] Closed Auto-Generate d Referral 11/08/2022 12/08/2023 1 1 [facility] for referral (narrative)* Diagnostic Procedure Only (Routine) - Closed Specialty Diagnoses / Procedures Referred By Contac t Referred To Contact XR IMAGING Diagnoses Hip pain, unspecified laterality Procedures XR HIP BILATERAL 5V PEL/AP/LAT EACH HIP RADEX HIPS BILATERAL WITH PELVIS MINIMUM 5 VIEWS Amos Floyd MD [address] [place] [address] [place] [address] Referral ID Status Reason Start Date Expiration Date V isits Requested Visits Authorized [id number] Closed Auto-Generate d Referral 10/26/2022 11/25/2023 1 1 [facility] for referral (narrative)* Diagnostic Procedure Only (Routine) - New Request Specialty Diagnoses / Procedures Referred By Contac t Referred To Contact XR IMAGING Diagnoses Age-related osteoporosis with current pathological fracture with routine healing Procedures DXA-AXIAL SKELETON DXA BONE DENSITY STUDY / SITES AXIAL Amos Leonard MD [address] [place] [address] Xr Imaging [facility] Referral ID Status Reason Start Date Expiration Date Visits Requested Visits Authorized [id number] New Request Auto-Generat ed Referral 12/29/2024 1 1 [facility] for referral (narrative)No reason for referral information [facility] Work Phone: Reason for visit Narrative* Diagnostic Procedure Only (Routine) - Closed Specialty Diagnoses / Procedures Referred By Contac t Referred To Contact BR IMAGING Diagnoses Encounter for screening mammogram for malignant neoplasm of breast Procedures TAE SCREENING SCREENING MAMMOGRAPHY BI 2-VIEW BREAST INC CAD Amos Floyd MD [address] [place] [address] Br Imaging [address] [place] [address] Referral ID Status Reason Start Date Expiration Date V isits Requested Visits Authorized [id number] Closed Auto-Generate d Referral 12/06/2021 01/05/2023 1 1 [facility] for visit Narrative* Diagnostic Procedure Only (Routine) - Closed Specialty Diagnoses / Procedures Referred By Contac t Referred To Contact XR IMAGING Diagnoses Closed displaced fracture of fifth metatarsal bone of right foot, initial encounter Procedures XR FOOT GENERAL 3V AP/LAT/OBL RIGHT RADEX FOOT COMPLETE MINIMUM 3 VIEWS TestOmar suazo [address] [place] [address] [place] [address] Referral ID Status Reason Start Date Expiration Date V isits Requested Visits Authorized [id number] Closed Auto-Generate d Referral 12/17/2022 12/17/2023 1 1 [facility] for visit Narrative* Diagnostic Procedure Only (Routine) - Closed Specialty Diagnoses / Procedures Referred By Contac t Referred To Contact XR IMAGING Diagnoses Closed displaced fracture of fifth metatarsal bone of right foot, initial encounter Procedures XR FOOT GENERAL 3V AP/LAT/OBL RIGHT RADEX FOOT COMPLETE MINIMUM 3 VIEWS Omar Cruz [address] [place] [address] [place] [address] Referral ID Status Reason Start Date Expiration Date V isits Requested Visits Authorized [id number] Closed Auto-Generate d Referral 11/17/2022 12/17/2023 1 1 [facility] for visit Narrative* Diagnostic Procedure Only (Routine) - Closed Specialty Diagnoses / Procedures Referred By Contac t Referred To Contact XR IMAGING Diagnoses Closed displaced fracture of fifth metatarsal bone of right foot, initial encounter Procedures XR FOOT GENERAL 3V AP/LAT/OBL RIGHT RADEX FOOT COMPLETE MINIMUM 3 VIEWS mOar Cruz [address] [place] [address] [place] [address] Referral ID Status Reason Start Date Expiration Date V isits Requested Visits Authorized [id number] Closed Auto-Generate d Referral 12/19/2022 01/18/2024 1 1 [facility] for visit Narrative* Diagnostic Procedure Only (Urgent) - Closed Specialty Diagnoses / Procedures Referred By Contac t Referred To Contact XR IMAGING Diagnoses Foot pain, right Procedures XR FOOT GENERAL 3V AP/LAT/OBL RIGHT RADEX FOOT COMPLETE MINIMUM 3 VIEWS Jacinda Enriquez, MANAGER TRACK.DES[employer] ENGINE[employer] [address] [place] [address] [place] [address] Referral ID Status Reason Start Date Expiration Date V isits Requested Visits Authorized [id number] Closed Auto-Generate d Referral 11/08/2022 12/08/2023 1 1 [facility] for visit Narrative* Diagnostic Procedure Only (Routine) - Closed Specialty Diagnoses / Procedures Referred By Contac t Referred To Contact XR IMAGING Diagnoses Hip pain, unspecified laterality Procedures XR HIP BILATERAL 5V PEL/AP/LAT EACH HIP RADEX HIPS BILATERAL WITH PELVIS MINIMUM 5 VIEWS Amos Floyd MD [address] [place] [address] [place] [address] Referral ID Status Reason Start Date Expiration Date V isits Requested Visits Authorized [id number] Closed Auto-Generate d Referral 10/26/2022 11/25/2023 1 1 [facility] for visit Narrative* Imaging (Routine) - Closed Specialty Diagnoses / Procedures Referred By Contac t Referred To Contact Radiology Diagnoses Nonrheumatic aortic valve stenosis Procedures CTA Angiogram TAVR Dylon Gupta, MANAGER TRACK - [address] [address] Phone: tel: fax: Referral ID Status Reason Start Date Expiration Date Visits Re quested Visits Authorized [id number] Closed 09/03/2024 09/03/2025 1 1 [facility] for visit Narrative* Auth/Cert (Routine) Specialty Diagnoses / Procedures Referred By Contac t Referred To Contact Diagnoses Severe aortic stenosis Procedures TRANSCATHETER AORTIC VALVE REPLACEMENT, TRANSTHORACIC ECHOCARDIOGRAM TRANSCATHETER AORTIC VALVE REPLACEMENT, TRANSTHORACIC ECHOCARDIOGRAM Memo Canas MD [address] [address] Phone: tel: fax: [facility] [address] [place] [address] Phone: tel: Referral ID Status Reason Start Date Expiration Date Visits Re quested Visits Authorized 1 1 [facility] for visit Narrative* Imaging (Routine) - Closed Specialty Diagnoses / Procedures Referred By Contac t Referred To Contact Cardiology Diagnoses Severe aortic stenosis Procedures Transthoracic echocardiogram (TTE) complete with contrast, bubble, strain, and 3D PRN RI ECHO TTHRC R-T 2D W/WOM-MODE COMPL SPEC&COLR D RI TTE W OR WO FOL WCON,DOPPLER Dylon Gupta, MANAGER TRACK - [employer] [address] [place] [address] Phone: tel: fax: Referral ID Status Reason Start Date Expiration Date Visits Re quested Visits Authorized [id number] Closed 10/24/2024 10/24/2025 1 1 [facility] Summary Purpose Family History No Family History Records Found Relationship Condition Age at Onset Recorded Date/T rupa father Cerebrovascular accident (CVA) Unknown mother Myocardial infarction 87 Relationship Condition Age at Onset Recorded Date/T rupa Not Specified History of deep venous thrombosis Unknow n 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 us e of anticoagulant therapy Unknown father Cerebrovascular accident (CVA) Unknown mother Myocardial infarction 87 Advance Directives No Advanced Directives Records FoundDocuments on File Type Date Recorded 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 Advance Directive(s) 06/15/2023 1:23 PM Date Activated Date Inactivated Comments 06/09/2023 9:18 AM 06/13/2023 5:43 PM Question Answer Comments DNR Order Discussed With: Patient Advance Directive Response Recorded Date/ Time Advance Directives Yes March 24, 2016 12:54pm Living Will Yes April 23, 2020 1:27am Power of Law Firm Partner Yes April 23 1:27am Documents on File Type Date Recorded 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 Advance Directive(s) Advance Directive(s) 03/25/2016 3:29 PM Advance Directive(s) 03/22/2016 8:29 AM Advance Directive(s) 09/14/2015 10:37 AM Advance Directive Response Recorded Date/ Time Name of Medical Power of Law Firm Partner Jacey Bravo November 17, 2021 1:25am Advance Directives Yes March 24, 2016 12:54pm Living Will Yes November 17, 2021 1:25am Power of Law Firm Partner Yes October 1:25am Advance Directive Response Recorded Date/ Time Name of Medical Power of Law Firm Partner Jacey Bravo November 17, 2021 12:25am Advance Directives Yes March 24, 2016 11:54am Living Will Yes November 17, 2021 12:25am Power of Law Firm Partner Yes October 12:25am Advance Directive Response Recorded Date/ Time Advance Directives Yes March 24, 2016 11:54am Living Will Yes November 17, 2021 12:25am Power of Law Firm Partner Yes October 12:25am Advance Directive Response Recorded Date/ Time Advance Directives Yes March 24, 2016 12:54pm Living Will Yes November 17, 2021 1:25am Power of Law Firm Partner Yes October 1:25am Advance Directive Response Recorded Date/ Time Advance Directives Yes March 24, 2016 12:54pm Living Will No May 15, 2023 3:08pm Power of Law Firm Partner No May 14 3:08pm Advance Directive Response Recorded Date/ Time Name of Medical Power of Law Firm Partner souleymane daughter May 23, 2023 8:15pm Advance Directives Yes March 24, 2016 12:54pm Living Will Yes May 23, 2023 8:15pm Power of Law Firm Partner Yes May 22 8:15pm Documents on File Type Date Recorded 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 Healthcare Power of Atty 05/12/2020 Living Will 05/12/2020 Latest Code Status on File Code Status Date Activated Date Inactivated Comments DNR and No Intubation and No ICU 05/24/2023 2:11 AM Question Answer Comments Plan of Care: Code Status Discussi on Completed Decision Maker: Patient Date Activated Date Inactivated Comments 06/09/2023 9:18 AM Documents on File Type Date Recorded 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 Yes November 17, 2021 1:25am Living Will Yes March 23 12:17am Do you have a Healthcare Power of Law Firm Partner? Yes March 23, 2024 12:17am Living Will Yes January 19 11:49pm Do you have a Healthcare Power of Law Firm Partner? Yes January 20, 2024 11:49pm Advance Directives Yes March 24, 2016 12:54pm Advance Directive Response Recorded Date/ Time Living Will Yes November 17, 2021 1:25am Do you have a Healthcare Power of Law Firm Partner? Yes November 17, 2021 1:25am Living Will Yes March 23 12:17am Do you have a Healthcare Power of Law Firm Partner? Yes March 23, 2024 12:17am Living Will Yes May 23, 2023 8:15pm Do you have a Healthcare Power of Law Firm Partner? Yes May 23, 2023 8:15pm Living Will Yes January 19 11:49pm Do you have a Healthcare Power of Law Firm Partner? Yes January 20, 2024 11:49pm Living Will Yes May 20, 2024 9:59pm Do you have a Healthcare Power of Law Firm Partner? Yes May 20, 2024 9:59pm Advance Directives Yes March 24, 2016 12:54pm Advance Directive Response Recorded Date/ Time Living Will Yes November 17, 2021 1:25am Do you have a Healthcare Power of Law Firm Partner? Yes November 17, 2021 1:25am Living Will Yes March 23 12:17am Do you have a Healthcare Power of Law Firm Partner? Yes March 23, 2024 12:17am Living Will Yes June 19, 2024 8:48pm Do you have a Healthcare Power of Law Firm Partner? Yes June 19, 2024 8:48pm Living Will Yes May 23, 2023 8:15pm Do you have a Healthcare Power of Law Firm Partner? Yes May 23, 2023 8:15pm Living Will Yes January 19 11:49pm Do you have a Healthcare Power of Law Firm Partner? Yes January 20, 2024 11:49pm Living Will Yes May 20, 2024 9:59pm Do you have a Healthcare Power of Law Firm Partner? Yes May 20, 2024 9:59pm Advance Directives Yes March 24, 2016 12:54pm Advance Directive Response Recorded Date/ Time Living Will Yes November 17, 2021 1:25am Do you have a Healthcare Power of Law Firm Partner? Yes November 17, 2021 1:25am Living Will Yes March 23 12:17am Do you have a Healthcare Power of Law Firm Partner? Yes March 23, 2024 12:17am Living Will Yes June 19, 2024 8:48pm Do you have a Healthcare Power of Law Firm Partner? Yes June 19, 2024 8:48pm Living Will Yes May 23, 2023 8:15pm Do you have a Healthcare Power of Law Firm Partner? Yes May 23, 2023 8:15pm Living Will Yes May 20, 2024 9:59pm Do you have a Healthcare Power of Law Firm Partner? Yes May 20, 2024 9:59pm Advance Directives Yes March 24, 2016 12:54pm Advance Directive Response Recorded Date/ Time Living Will Yes November 17, 2021 1:25am Do you have a Healthcare Pow er of Law Firm Partner? Yes November 17, 2021 1:25am Living Will Yes March 23 12:17am Do you have a Healthcare Pow er of Law Firm Partner? Yes March 23, 2024 12:17am Living Will Yes June 19, 2024 8:48pm Do you have a Healthcare Pow er of Law Firm Partner? Yes June 19, 2024 8:48pm Living Will Yes May 23, 2023 8:15pm Do you have a Healthcare Pow er of Law Firm Partner? Yes May 23, 2023 8:15pm Living Will Yes May 20, 2024 9:59pm Do you have a Healthcare Pow er of Law Firm Partner? Yes May 20, 2024 9:59pm Advance Directives on File Yes August 05, 2024 7:22am Living Will Yes August 05, 2024 7:22am Do you have a Healthcare Pow er of Law Firm Partner? Yes August 05, 2024 7:22am Name of Medical Power of Law Firm Partner daughter bisi simpson August 05, 2024 7:22am Advance Directives Yes August 05 7:22am Advance Directive Response Recorded Date/ Time Living Will Yes November 17, 2021 1:25am Do you have a Healthcare Pow er of Law Firm Partner? Yes November 17, 2021 1:25am Living Will Yes March 23 12:17am Do you have a Healthcare Pow er of Law Firm Partner? Yes March 23, 2024 12:17am Living Will Yes June 19, 2024 8:48pm Do you have a Healthcare Pow er of Law Firm Partner? Yes June 19, 2024 8:48pm Living Will Yes May 23, 2023 8:15pm Do you have a Healthcare Pow er of Law Firm Partner? Yes May 23, 2023 8:15pm Living Will Yes May 20, 2024 9:59pm Do you have a Healthcare Pow er of Law Firm Partner? Yes May 20, 2024 9:59pm Advance Directives on File Yes August 05, 2024 7:22am Living Will Yes August 05, 2024 7:22am Do you have a Healthcare Pow er of Law Firm Partner? Yes August 05, 2024 7:22am Name of Medical Power of Law Firm Partner daughter bisi simpson August 05, 2024 7:22am Advance Directives Yes August 05 7:22am Do you have a Healthcare Pow er of Law Firm Partner? Yes August 07, 2024 4:00pm Advance Directive Response Recorded Date/ Time Living Will Yes November 17, 2021 1:25am Do you have a Healthcare Pow er of Law Firm Partner? Yes November 17, 2021 1:25am Living Will Yes March 23 12:17am Do you have a Healthcare Pow er of Law Firm Partner? Yes March 23, 2024 12:17am Living Will Yes June 19, 2024 8:48pm Do you have a Healthcare Pow er of Law Firm Partner? Yes June 19, 2024 8:48pm Living Will Yes May 23, 2023 8:15pm Do you have a Healthcare Pow er of Law Firm Partner? Yes May 23, 2023 8:15pm Living Will Yes May 20, 2024 9:59pm Do you have a Healthcare Pow er of Law Firm Partner? Yes May 20, 2024 9:59pm Advance Directives on File Yes August 05, 2024 7:22am Living Will Yes August 05, 2024 7:22am Do you have a Healthcare Pow er of Law Firm Partner? Yes August 05, 2024 7:22am Name of Medical Power of Law Firm Partner daughter bisi simpson August 05, 2024 7:22am Advance Directives Yes August 05 7:22am Do you have a Healthcare Pow er of Law Firm Partner? Yes August 07, 2024 9:52pm Name of Medical Power of Law Firm Partner souleymane August 07, 2024 9:52pm Advance Directive Response Recorded Date/ Time Living Will Yes June 19, 2024 8:48pm Do you have a Healthcare Power of Law Firm Partner? Yes June 19, 2024 8:48pm Living Will Yes May 23, 2023 8:15pm Do you have a Healthcare Power of Law Firm Partner? Yes May 23, 2023 8:15pm Living Will Yes May 20, 2024 9:59pm Do you have a Healthcare Power of Law Firm Partner? Yes May 20, 2024 9:59pm Advance Directives on File Yes August 05, 2024 7:22am Living Will Yes August 05, 2024 7:22am Do you have a Healthcare Power of Law Firm Partner? Yes August 05, 2024 7:22am Name of Medical Power of Law Firm Partner daughter bisi simpson August 05, 2024 7:22am Advance Directives Yes August 05 7:22am Do you have a Healthcare Power of Law Firm Partner? Yes August 07, 2024 9:52pm Name of Medical Power of Law Firm Partner souleymane August 07, 2024 9:52pm Advance Directive Response Recorded Date/ Time Living Will Yes June 19, 2024 8:48pm Do you have a Healthcare Power of Law Firm Partner? Yes June 19, 2024 8:48pm Advance Directives on File Yes August 05, 2024 7:22am Living Will Yes August 05, 2024 7:22am Do you have a Healthcare Power of Law Firm Partner? Yes August 05, 2024 7:22am Name of Medical Power of Law Firm Partner daughter bisi simpson August 05, 2024 7:22am Advance Directives Yes August 05 7:22am Do you have a Healthcare Power of Law Firm Partner? Yes August 07, 2024 9:52pm Name of Medical Power of Law Firm Partner souleymane August 07, 2024 9:52pm Advance Directive Response Recorded Date/ Time Advance Directives on File Yes August 05, 2024 7:22am Living Will Yes August 05, 2024 7:22am Do you have a Healthcare Power of Law Firm Partner? Yes August 05, 2024 7:22am Name of Medical Power of Law Firm Partner daughter bisi simpson August 05, 2024 7:22am Advance Directives Yes August 05 7:22am Do you have a Healthcare Power of Law Firm Partner? Yes August 07, 2024 9:52pm Name of Medical Power of Law Firm Partner souleymane August 07, 2024 9:52pm Date Activated Date Inactivated Comments 10/23/2024 5:41 AM Date Activated Date Inactivated Comments 10/23/2024 5:41 AM 10/24/2024 3:36 PM Date Activated Date Inactivated Comments 10/23/2024 5:41 AM 10/24/2024 3:36 PM Advance Directive Response Recorded Date/ Time Advance Directives Yes August 05 7:22am Hospital Course Note Send Summary: Discharge Summ christ Providers: Provider RoleProvider Name Amos Monge AttendingTaalessio, Baldo Ballard, Alvin Encarnacion, Di ConsultingWenceslao, Leigh ConsultingMario, Vicky ConsultingMarco A, Amos Rosales Note Recipients: Amos Floyd MD - [id number] [] Discharge: Summary: Admission Date: .01-May-2020 20:47:00 [...] HYPOTENSION, ANGELA HYPOTENSION, ANGELA Reason for Visit [place] disease ANGELA (acute kidney injury) Elevated troponin Hypotension Chronic kidney disease 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, stage 3 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 Chief Complaint S/O INR S/O INR S/O INR HYPOTENSION, ANGELA HYPOTENSION, ANGELA HYPOTENSION, ANGELA HYPOTENSION, ANGELA PROLIA/60MG Reason for Visit ANGELA (acute kidney in jury) Elevated troponin Hypotension Chief Complaint S/O INR S/O INR HYPOTENSION, ANGELA HYPOTENSION, ANGELA HYPOTENSION, ANGELA HYPOTENSION, ANGELA PROLIA/60MG 1 Y FU/Osteo S/p hospital E ORDER Reason for Visit [place] disease ANGELA (acute kidney injury) Elevated troponin Hypotension [place] disease Osteoporosis Essential (primary) hypertension History of pulmonary embolism Hyperlipidemia History of non-ST elevation myocardial infarction (NSTEMI) Chief Complaint S/O INR HYPOTENSION, ANGELA HYPOTENSION, ANGELA HYPOTENSION, ANGELA HYPOTENSION, ANGELA PROLIA/60MG 1 Y FU/Osteo S/p hospital E ORDER 6 wk fu EORDERS-3 ORDERING DRS E ORDER Reason for Visit [place] disease ANGELA (acute kidney injury) Elevated troponin [...] Y FU PROLIA/60MG EORDER/INR Reason for Visit [place] disease Osteoporosis Chief Complaint EORDER/INR EORDER/INR 1 Y FU PROLIA/60MG EORDER/INR EORDER/INR Reason for Visit [place] disease Osteoporosis Chief Complaint EORDER/INR 1 Y FU PROLIA/60MG EORDER/INR EORDER/INR EORDER/INR Reason for Visit [place] disease Osteoporosis Chief Complaint 1 Y FU PROLIA/60MG EORDER/INR EORDER/INR EORDER/INR EORDER/INR 6 M FU Reason for Visit [place] disease Osteoporosis Aortic stenosis Dizziness MVP (mitral [...] Aortic stenosis April 29, 2024 10: 53am 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 April 29, [...] Aortic stenosis April 29, 2024 10: 53am 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 April 29, [...] Aortic stenosis April 29, 2024 10: 53am 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 April 29, 2024 10:53am MVP (mitral valve prolapse) April 29, 2024 10:53am Chronic kidney disease, stage 3 April 292024 10:53am Essential (primary) hypertension April 202024 10:53am Hyperlipidemia April 29, 2024 10: 53am History of non-ST elevation myocardial i nfarction (NSTEMI) April 29, 2024 10:53am Aortic stenosis July 23, 2024 8:33a m 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 July 23, [...] pm Leukocytosis August 07, 2024 8:16 pm 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 August 07, [...] Acute hypotension August 07, 2024 8:16 pm [place]'s disease August 07, 2024 8:16 pm Aortic [...] 8:16pm MVP (mitral valve prolapse) August 07, 025 8:16pm Overweight (BMI 25.0-29.9) August 07 [...] Chronic kidney disease, stage 3 July 8:33am 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 2024 8:57am shelter (current) use of anticoagulant [...] November 14, 2024 8:57am Essential (primary) hypertension [facility] 2024 8:57am Hyperlipidemia November 14, 2024 8:57am History of non-ST elevation myocardial infarction (NSTEMI) November 14, 2024 8:57am Chronic kidney disease, stage 3 [facility] 2024 8:57am shelter (current) use of anticoagulant [...] Referral Specialty Diagnoses / Procedures Referred By Contac t Referred To Contact [facility] Diagnoses Hip pain, unspecified laterality Procedures CONSULT TO PHYSICAL THERAPY PHYSICAL THERAPY EVALUATION HIGH COMPLEX 45 MINS Amos Floyd MD [address] [place] [address] [facility] [place] [address] [place] [id number] Referral ID Status Reason Start Date Expiration Date Visits Requested Visits Authorized [id number] Authorized Auto-Generat ed Referral 10/26/2022 02/19/2023 1 1 Specialty Diagnoses / Procedures Referred By Contac t Referred To Contact XR IMAGING Diagnoses Hip pain, unspecified laterality Procedures XR HIP BILATERAL 5V PEL/AP/LAT EACH HIP RADEX HIPS BILATERAL WITH PELVIS MINIMUM 5 VIEWS Amos Floyd MD [facility] [place] [address] [place] [address] Referral ID Status Reason Start Date Expiration Date V isits Requested Visits Authorized [id number] Closed Auto-Generate d Referral 10/26/2022 11/25/2023 1 1 Specialty Diagnoses / Procedures Referred By Contac t Referred To Contact [facility] Diagnoses Pain of left hip Procedures PT REHAB FOLLOW UP ORDER THERAPEUTIC EXERCISES RE, EA 15 MIN. Pt [facility] [address] [place] [address] [facility] [address] [address] Referral ID Status Reason Start Date Expiration Date Visits Requested Visits Authorized [id number] Pending Review PCP Requested Referral Auto-Generate d Referral 11/01/2022 01/30/2023 1 1 Specialty Diagnoses / Procedures Referred By Contac t Referred To Contact Podiatry Diagnoses Foot pain, right Procedures CONSULT TO PODIATRY OFFICE/OUTPATIENT [facility] MDM 60-74 MINUTES Enriquez, Jacinda, MANAGER [employer] [address] [place] [address] Referral ID Status Reason Start Date Expiration Date Visits Requested Visits Authorized [id number] Authorized PCP Requested Referral 11/08/2022 11/08/2023 1 1 Specialty Diagnoses / Procedures Referred By Contac t Referred To Contact XR IMAGING Diagnoses Foot pain, right Procedures XR FOOT GENERAL 3V AP/LAT/OBL RIGHT RADEX FOOT COMPLETE MINIMUM 3 VIEWS Jacinda Enriquez, MANAGER TRACK[employer] [address] [place] [address] [place] [address] Referral ID Status Reason Start Date Expiration Date V isits Requested Visits Authorized [id number] Closed Auto-Generate d Referral 11/08/2022 12/08/2023 1 1 Specialty Diagnoses / Procedures Referred By Contac t Referred To Contact [facility] Diagnoses Physical deconditioning Muscle weakness Gait abnormality Procedures CONSULT TO PHYSICAL THERAPY PHYSICAL THERAPY EVALUATION HIGH COMPLEX 45 MINS Rocio Elizalde, MANAGER TRACK[employer] [address] [place] [address] [facility] [place] [address] [place] [address] Referral ID Status Reason Start Date Expiration Date Visits Requested Visits Authorized [id number] Pending Review Auto-Generat ed Referral 05/31/2023 05/30/2024 1 1 Specialty Diagnoses / Procedures Referred By Contac t Referred To Contact CT IMAGING Diagnoses Nodule of lower lobe of right lung Procedures CT CHEST WO IVCON DIAGNOSTIC COMPUTED TOMOGRAPHY THORAX W/O Amos Bill MD [address] [place] [address] [place] [address] Referral ID Status Reason Start Date Expiration Date Visits Requested Visits Authorized [id number] New Request Auto-Generat ed Referral 02/13/2025 1 1 Additional Source Comments INFORMATION SOURCE (unrecogn ized section and content) DATE CREATED AUTHOR 08/15/2017 Lilibeth Crisost[employer] DATE CREATED AUTHOR AUTHOR'S ORGANIZ ATION 04/29/2020 [facility] DATE CREATED AUTHOR AUTHOR'S ORGANIZ ATION 05/27/2020 [facility] DATE CREATED AUTHOR AUTHOR'S ORGANIZ ATION 05/25/2023 [facility] DATE CREATED AUTHOR AUTHOR'S ORGANIZ ATION 06/13/2023 [facility] DATE CREATED AUTHOR AUTHOR'S ORGANIZ ATION 09/24/2024 [facility] DATE CREATED AUTHOR AUTHOR'S ORGANIZ ATION 12/19/2024 [facility] DATE CREATED AUTHOR AUTHOR'S ORGANIZ ATION 12/28/2024 [facility] DATE CREATED AUTHOR AUTHOR'S ORGANIZ ATION 01/01/2025 [facility] Goals (unrecognized section and content) Goals may [...] or prosecute any alcohol or drug abuse patient.[facility] HospitalIn the event this information is protected by the Federal Confidentiality of Alcohol and Drug Abuse Patient Records regulations: The Federal rules restrict any use of the information to criminally investigate or prosecute any alcohol or drug abuse patient.[facility] HospitalIn the event this information is protected by the Federal Confidentiality of Alcohol and Drug Abuse Patient Records regulations: The Federal rules restrict any use of the information to criminally investigate or prosecute any alcohol or drug abuse patient.[facility] HospitalIn the event this information is protected by the Federal Confidentiality of Alcohol and Drug Abuse Patient Records regulations: The Federal rules restrict any use of the information to criminally investigate or prosecute any alcohol or drug abuse patient.[facility] HospitalIn the event this information is protected by the Federal Confidentiality of Alcohol and Drug Abuse Patient Records regulations: The Federal rules restrict any use of the information to criminally investigate or prosecute any alcohol or drug abuse patient.[facility] HospitalIn the event this information is protected by the Federal Confidentiality of Alcohol and Drug Abuse Patient Records regulations: The Federal rules restrict any use of the information to criminally investigate or prosecute any alcohol or drug abuse patient.[facility] HospitalIn the event this information is protected by the Federal Confidentiality of Alcohol and Drug Abuse Patient Records regulations: The Federal rules restrict any use of the information to criminally investigate or prosecute any alcohol or drug abuse patient.[facility] HospitalIn the event this information is protected by the Federal Confidentiality of Alcohol and Drug Abuse Patient Records regulations: The Federal rules restrict any use of the information to criminally investigate or prosecute any alcohol or drug abuse patient.[facility] HospitalIn the event this information is protected by the Federal Confidentiality of Alcohol and Drug Abuse Patient Records regulations: The Federal rules restrict any use of the information to criminally investigate or prosecute any alcohol or drug abuse patient.[facility] HospitalIn the event this information is protected by the Federal Confidentiality of Alcohol and Drug Abuse Patient Records regulations: The Federal rules restrict any use of the information to criminally investigate or prosecute any alcohol or drug abuse patient.[facility] HospitalIn the event this information is protected by the Federal Confidentiality of Alcohol and Drug Abuse Patient Records regulations: The Federal rules restrict any use of the information to criminally investigate or prosecute any alcohol or drug abuse patient.[facility] HospitalIn the event this information is protected by the Federal Confidentiality of Alcohol and Drug Abuse Patient Records regulations: The Federal rules restrict any use of the information to criminally investigate or prosecute any alcohol or drug abuse patient.[facility] HospitalIn the event this information is protected by the Federal Confidentiality of Alcohol and Drug Abuse Patient Records regulations: The Federal rules restrict any use of the information to criminally investigate or prosecute any alcohol or drug abuse patient.[facility] HospitalIn the event this information is protected by the Federal Confidentiality of Alcohol and Drug Abuse Patient Records regulations: The Federal rules restrict any use of the information to criminally investigate or prosecute any alcohol or drug abuse patient.[facility] HospitalIn the event this information is protected by the Federal Confidentiality of Alcohol and Drug Abuse Patient Records regulations: The Federal rules restrict any use of the information to criminally investigate or prosecute any alcohol or drug abuse patient.[facility] HospitalIn the event this information is protected by the Federal Confidentiality of Alcohol and Drug Abuse Patient Records regulations: The Federal rules restrict any use of the information to criminally investigate or prosecute any alcohol or drug abuse patient.[facility] HospitalIn the event this information is protected by the Federal Confidentiality of Alcohol and Drug Abuse Patient Records regulations: The Federal rules restrict any use of the information to criminally investigate or prosecute any alcohol or drug abuse patient.[facility] HospitalIn the event this information is protected by the Federal Confidentiality of Alcohol and Drug Abuse Patient Records regulations: The Federal rules restrict any use of the information to criminally investigate or prosecute any alcohol or drug abuse patient.[facility] HospitalIn the event this information is protected by the Federal Confidentiality of Alcohol and Drug Abuse Patient Records regulations: The Federal rules restrict any use of the information to criminally investigate or prosecute any alcohol or drug abuse patient.[facility] HospitalIn the event this information is protected by the Federal Confidentiality of Alcohol and Drug Abuse Patient Records regulations: The Federal rules restrict any use of the information to criminally investigate or prosecute any alcohol or drug abuse patient.[facility] HospitalIn the event this information is protected by the Federal Confidentiality of Alcohol and Drug Abuse Patient Records regulations: The Federal rules restrict any use of the information to criminally investigate or prosecute any alcohol or drug abuse patient.[facility] HospitalIn the event this information is protected by the Federal Confidentiality of Alcohol and Drug Abuse Patient Records regulations: The Federal rules restrict any use of the information to criminally investigate or prosecute any alcohol or drug abuse patient.[facility] HospitalIn the event this information is protected by the Federal Confidentiality of Alcohol and Drug Abuse Patient Records regulations: The Federal rules restrict any use of the information to criminally investigate or prosecute any alcohol or drug abuse patient.[facility] HospitalIn the event this information is protected by the Federal Confidentiality of Alcohol and Drug Abuse Patient Records regulations: The Federal rules restrict any use of the information to criminally investigate or prosecute any alcohol or drug abuse patient.[facility] HospitalIn the event this information is protected by the Federal Confidentiality of Alcohol and Drug Abuse Patient Records regulations: The Federal rules restrict any use of the information to criminally investigate or prosecute any alcohol or drug abuse patient.[facility] HospitalIn the event this information is protected by the Federal Confidentiality of Alcohol and Drug Abuse Patient Records regulations: The Federal rules restrict any use of the information to criminally investigate or prosecute any alcohol or drug abuse patient.[facility] HospitalIn the event this information is protected by the Federal Confidentiality of Alcohol and Drug Abuse Patient Records regulations: The Federal rules restrict any use of the information to criminally investigate or prosecute any alcohol or drug abuse patient.[facility] HospitalIn the event this information is protected by the Federal Confidentiality of Alcohol and Drug Abuse Patient Records regulations: The Federal rules restrict any use of the information to criminally investigate or prosecute any alcohol or drug abuse patient.[facility] HospitalIn the event this information is protected by the Federal Confidentiality of Alcohol and Drug Abuse Patient Records regulations: The Federal rules restrict any use of the information to criminally investigate or prosecute any alcohol or drug abuse patient.[facility] HospitalIn the event this information is protected by the Federal Confidentiality of Alcohol and Drug Abuse Patient Records regulations: The Federal rules restrict any use of the information to criminally investigate or prosecute any alcohol or drug abuse patient.[facility] HospitalIn the event this information is protected by the Federal Confidentiality of Alcohol and Drug Abuse Patient Records regulations: The Federal rules restrict any use of the information to criminally investigate or prosecute any alcohol or drug abuse patient.[facility] HospitalIn the event this information is protected by the Federal Confidentiality of Alcohol and Drug Abuse Patient Records regulations: The Federal rules restrict any use of the information to criminally investigate or prosecute any alcohol or drug abuse patient.[facility] HospitalIn the event this information is protected by the Federal Confidentiality of Alcohol and Drug Abuse Patient Records regulations: The Federal rules restrict any use of the information to criminally investigate or prosecute any alcohol or drug abuse patient.[facility] HospitalIn the event this information is protected by the Federal Confidentiality of Alcohol and Drug Abuse Patient Records regulations: The Federal rules restrict any use of the information to criminally investigate or prosecute any alcohol or drug abuse patient.[facility] HospitalIn the event this information is protected by the Federal Confidentiality of Alcohol and Drug Abuse Patient Records regulations: The Federal rules restrict any use of the information to criminally investigate or prosecute any alcohol or drug abuse patient.[facility] HospitalIn the event this information is protected by the Federal Confidentiality of Alcohol and Drug Abuse Patient Records regulations: The Federal rules restrict any use of the information to criminally investigate or prosecute any alcohol or drug abuse patient.[facility] HospitalIn the event this information is protected by the Federal Confidentiality of Alcohol and Drug Abuse Patient Records regulations: The Federal rules restrict any use of the information to criminally investigate or prosecute any alcohol or drug abuse patient.[facility] HospitalIn the event this information is protected by the Federal Confidentiality of Alcohol and Drug Abuse Patient Records regulations: The Federal rules restrict any use of the information to criminally investigate or prosecute any alcohol or drug abuse patient.[facility] HospitalIn the event this information is protected by the Federal Confidentiality of Alcohol and Drug Abuse Patient Records regulations: The Federal rules restrict any use of the information to criminally investigate or prosecute any alcohol or drug abuse patient.[facility] HospitalIn the event this information is protected by the Federal Confidentiality of Alcohol and Drug Abuse Patient Records regulations: The Federal rules restrict any use of the information to criminally investigate or prosecute any alcohol or drug abuse patient.[facility] HospitalIn the event this information is protected by the Federal Confidentiality of Alcohol and Drug Abuse Patient Records regulations: The Federal rules restrict any use of the information to criminally investigate or prosecute any alcohol or drug abuse patient.[facility] HospitalIn the event this information is protected by the Federal Confidentiality of Alcohol and Drug Abuse Patient Records regulations: The Federal rules restrict any use of the information to criminally investigate or prosecute any alcohol or drug abuse patient.[facility] HospitalIn the event this information is protected by the Federal Confidentiality of Alcohol and Drug Abuse Patient Records regulations: The Federal rules restrict any use of the information to criminally investigate or prosecute any alcohol or drug abuse patient.[facility] HospitalIn the event this information is protected by the Federal Confidentiality of Alcohol and Drug Abuse Patient Records regulations: The Federal rules restrict any use of the information to criminally investigate or prosecute any alcohol or drug abuse patient.[facility] HospitalIn the event this information is protected by the Federal Confidentiality of Alcohol and Drug Abuse Patient Records regulations: The Federal rules restrict any use of the information to criminally investigate or prosecute any alcohol or drug abuse patient.[facility] HospitalIn the event this information is protected by the Federal Confidentiality of Alcohol and Drug Abuse Patient Records regulations: The Federal rules restrict any use of the information to criminally investigate or prosecute any alcohol or drug abuse patient.[facility] HospitalIn the event this information is protected by the Federal Confidentiality of Alcohol and Drug Abuse Patient Records regulations: The Federal rules restrict any use of the information to criminally investigate or prosecute any alcohol or drug abuse patient.[facility] HospitalIn the event this information is protected by the Federal Confidentiality of Alcohol and Drug Abuse Patient Records regulations: The Federal rules restrict any use of the information to criminally investigate or prosecute any alcohol or drug abuse patient.[facility] HospitalIn the event this information is protected by the Federal Confidentiality of Alcohol and Drug Abuse Patient Records regulations: The Federal rules restrict any use of the information to criminally investigate or prosecute any alcohol or drug abuse patient.[facility] HospitalIn the event this information is protected by the Federal Confidentiality of Alcohol and Drug Abuse Patient Records regulations: The Federal rules restrict any use of the information to criminally investigate or prosecute any alcohol or drug abuse patient.[facility] HospitalIn the event this information is protected by the Federal Confidentiality of Alcohol and Drug Abuse Patient Records regulations: The Federal rules restrict any use of the information to criminally investigate or prosecute any alcohol or drug abuse patient.[facility] HospitalIn the event this information is protected by the Federal Confidentiality of Alcohol and Drug Abuse Patient Records regulations: The Federal rules restrict any use of the information to criminally investigate or prosecute any alcohol or drug abuse patient.[facility] HospitalIn the event this information is protected by the Federal Confidentiality of Alcohol and Drug Abuse Patient Records regulations: The Federal rules restrict any use of the information to criminally investigate or prosecute any alcohol or drug abuse patient.[facility] HospitalIn the event this information is protected by the Federal Confidentiality of Alcohol and Drug Abuse Patient Records regulations: The Federal rules restrict any use of the information to criminally investigate or prosecute any alcohol or drug abuse patient.[facility] [facility] HospitalIn the event this information is protected by the Federal Confidentiality of Alcohol and Drug Abuse Patient Records regulations: The Federal rules restrict any use of the information to criminally investigate or prosecute any alcohol or drug abuse patient.[facility] HospitalIn the event this information is protected by the Federal Confidentiality of Alcohol and Drug Abuse Patient Records regulations: The Federal rules restrict any use of the information to criminally investigate or prosecute any alcohol or drug abuse patient.[facility] HospitalIn the event this information is protected by the Federal Confidentiality of Alcohol and Drug Abuse Patient Records regulations: The Federal rules restrict any use of the information to criminally investigate or prosecute any alcohol or drug abuse patient.[facility] HospitalIn the event this information is protected by the Federal Confidentiality of Alcohol and Drug Abuse Patient Records regulations: The Federal rules restrict any use of the information to criminally investigate or prosecute any alcohol or drug abuse patient.[facility] HospitalIn the event this information is protected by the Federal Confidentiality of Alcohol and Drug Abuse Patient Records regulations: The Federal rules restrict any use of the information to criminally investigate or prosecute any alcohol or drug abuse patient.[facility] HospitalIn the event this information is protected by the Federal Confidentiality of Alcohol and Drug Abuse Patient Records regulations: The Federal rules restrict any use of the information to criminally investigate or prosecute any alcohol or drug abuse patient.[facility] HospitalIn the event this information is protected by the Federal Confidentiality of Alcohol and Drug Abuse Patient Records regulations: The Federal rules restrict any use of the information to criminally investigate or prosecute any alcohol or drug abuse patient.[facility] HospitalIn the event this information is protected by the Federal Confidentiality of Alcohol and Drug Abuse Patient Records regulations: The Federal rules restrict any use of the information to criminally investigate or prosecute any alcohol or drug abuse patient.[facility] HospitalIn the event this information is protected by the Federal Confidentiality of Alcohol and Drug Abuse Patient Records regulations: The Federal rules restrict any use of the information to criminally investigate or prosecute any alcohol or drug abuse patient.[facility] HospitalIn the event this information is protected by the Federal Confidentiality of Alcohol and Drug Abuse Patient Records regulations: The Federal rules restrict any use of the information to criminally investigate or prosecute any alcohol or drug abuse patient.[facility] HospitalIn the event this information is protected by the Federal Confidentiality of Alcohol and Drug Abuse Patient Records regulations: The Federal rules restrict any use of the information to criminally investigate or prosecute any alcohol or drug abuse patient.[facility] HospitalIn the event this information is protected by the Federal Confidentiality of Alcohol and Drug Abuse Patient Records regulations: The Federal rules restrict any use of the information to criminally investigate or prosecute any alcohol or drug abuse patient.[facility] HospitalIn the event this information is protected by the Federal Confidentiality of Alcohol and Drug Abuse Patient Records regulations: The Federal rules restrict any use of the information to criminally investigate or prosecute any alcohol or drug abuse patient.[facility] HospitalIn the event this information is protected by the Federal Confidentiality of Alcohol and Drug Abuse Patient Records regulations: The Federal rules restrict any use of the information to criminally investigate or prosecute any alcohol or drug abuse patient.[facility] HospitalIn the event this information is protected by the Federal Confidentiality of Alcohol and Drug Abuse Patient Records regulations: The Federal rules restrict any use of the information to criminally investigate or prosecute any alcohol or drug abuse patient.[facility] HospitalIn the event this information is protected by the Federal Confidentiality of Alcohol and Drug Abuse Patient Records regulations: The Federal rules restrict any use of the information to criminally investigate or prosecute any alcohol or drug abuse patient.[facility] HospitalIn the event this information is protected by the Federal Confidentiality of Alcohol and Drug Abuse Patient Records regulations: The Federal rules restrict any use of the information to criminally investigate or prosecute any alcohol or drug abuse patient.[facility] HospitalIn the event this information is protected by the Federal Confidentiality of Alcohol and Drug Abuse Patient Records regulations: The Federal rules restrict any use of the information to criminally investigate or prosecute any alcohol or drug abuse patient.[facility] HospitalIn the event this information is protected by the Federal Confidentiality of Alcohol and Drug Abuse Patient Records regulations: The Federal rules restrict any use of the information to criminally investigate or prosecute any alcohol or drug abuse patient.[facility] HospitalIn the event this information is protected by the Federal Confidentiality of Alcohol and Drug Abuse Patient Records regulations: The Federal rules restrict any use of the information to criminally investigate or prosecute any alcohol or drug abuse patient.[facility] HospitalIn the event this information is protected by the Federal Confidentiality of Alcohol and Drug Abuse Patient Records regulations: The Federal rules restrict any use of the information to criminally investigate or prosecute any alcohol or drug abuse patient.[facility] HospitalIn the event this information is protected by the Federal Confidentiality of Alcohol and Drug Abuse Patient Records regulations: The Federal rules restrict any use of the information to criminally investigate or prosecute any alcohol or drug abuse patient.[facility] HospitalIn the event this information is protected by the Federal Confidentiality of Alcohol and Drug Abuse Patient Records regulations: The Federal rules restrict any use of the information to criminally investigate or prosecute any alcohol or drug abuse patient.[facility] HospitalIn the event this information is protected by the Federal Confidentiality of Alcohol and Drug Abuse Patient Records regulations: The Federal rules restrict any use of the information to criminally investigate or prosecute any alcohol or drug abuse patient.[facility] HospitalIn the event this information is protected by the Federal Confidentiality of Alcohol and Drug Abuse Patient Records regulations: The Federal rules restrict any use of the information to criminally investigate or prosecute any alcohol or drug abuse patient.[facility] HospitalIn the event this information is protected by the Federal Confidentiality of Alcohol and Drug Abuse Patient Records regulations: The Federal rules restrict any use of the information to criminally investigate or prosecute any alcohol or drug abuse patient.[facility] HospitalIn the event this information is protected by the Federal Confidentiality of Alcohol and Drug Abuse Patient Records regulations: The Federal rules restrict any use of the information to criminally investigate or prosecute any alcohol or drug abuse patient.[facility] HospitalIn the event this information is protected by the Federal Confidentiality of Alcohol and Drug Abuse Patient Records regulations: The Federal rules restrict any use of the information to criminally investigate or prosecute any alcohol or drug abuse patient.[facility] HospitalIn the event this information is protected by the Federal Confidentiality of Alcohol and Drug Abuse Patient Records regulations: The Federal rules restrict any use of the information to criminally investigate or prosecute any alcohol or drug abuse patient.[facility] HospitalIn the event this information is protected by the Federal Confidentiality of Alcohol and Drug Abuse Patient Records regulations: The Federal rules restrict any use of the information to criminally investigate or prosecute any alcohol or drug abuse patient.[facility] HospitalIn the event this information is protected by the Federal Confidentiality of Alcohol and Drug Abuse Patient Records regulations: The Federal rules restrict any use of the information to criminally investigate or prosecute any alcohol or drug abuse patient.[facility] HospitalIn the event this information is protected by the Federal Confidentiality of Alcohol and Drug Abuse Patient Records regulations: The Federal rules restrict any use of the information to criminally investigate or prosecute any alcohol or drug abuse patient.[facility] HospitalIn the event this information is protected by the Federal Confidentiality of Alcohol and Drug Abuse Patient Records regulations: The Federal rules restrict any use of the information to criminally investigate or prosecute any alcohol or drug abuse patient.[facility] HospitalIn the event this information is protected by the Federal Confidentiality of Alcohol and Drug Abuse Patient Records regulations: The Federal rules restrict any use of the information to criminally investigate or prosecute any alcohol or drug abuse patient.[facility] HospitalIn the event this information is protected by the Federal Confidentiality of Alcohol and Drug Abuse Patient Records regulations: The Federal rules restrict any use of the information to criminally investigate or prosecute any alcohol or drug abuse patient.[facility] HospitalIn the event this information is protected by the Federal Confidentiality of Alcohol and Drug Abuse Patient Records regulations: The Federal rules restrict any use of the information to criminally investigate or prosecute any alcohol or drug abuse patient.[facility] HospitalIn the event this information is protected by the Federal Confidentiality of Alcohol and Drug Abuse Patient Records regulations: The Federal rules restrict any use of the information to criminally investigate or prosecute any alcohol or drug abuse patient.[facility] HospitalIn the event this information is protected by the Federal Confidentiality of Alcohol and Drug Abuse Patient Records regulations: The Federal rules restrict any use of the information to criminally investigate or prosecute any alcohol or drug abuse patient.[facility] HospitalIn the event this information is protected by the Federal Confidentiality of Alcohol and Drug Abuse Patient Records regulations: The Federal rules restrict any use of the information to criminally investigate or prosecute any alcohol or drug abuse patient.[facility] HospitalIn the event this information is protected by the Federal Confidentiality of Alcohol and Drug Abuse Patient Records regulations: The Federal rules restrict any use of the information to criminally investigate or prosecute any alcohol or drug abuse patient.[facility] HospitalIn the event this information is protected by the Federal Confidentiality of Alcohol and Drug Abuse Patient Records regulations: The Federal rules restrict any use of the information to criminally investigate or prosecute any alcohol or drug abuse patient.[facility] HospitalIn the event this information is protected by the Federal Confidentiality of Alcohol and Drug Abuse Patient Records regulations: The Federal rules restrict any use of the information to criminally investigate or prosecute any alcohol or drug abuse patient.[facility] HospitalIn the event this information is protected by the Federal Confidentiality of Alcohol and Drug Abuse Patient Records regulations: The Federal rules restrict any use of the information to criminally investigate or prosecute any alcohol or drug abuse patient.[facility] HospitalIn the event this information is protected by the Federal Confidentiality of Alcohol and Drug Abuse Patient Records regulations: The Federal rules restrict any use of the information to criminally investigate or prosecute any alcohol or drug abuse patient.[facility] HospitalIn the event this information is protected by the Federal Confidentiality of Alcohol and Drug Abuse Patient Records regulations: The Federal rules restrict any use of the information to criminally investigate or prosecute any alcohol or drug abuse patient.[facility] HospitalIn the event this information is protected by the Federal Confidentiality of Alcohol and Drug Abuse Patient Records regulations: The Federal rules restrict any use of the information to criminally investigate or prosecute any alcohol or drug abuse patient.[facility] HospitalIn the event this information is protected by the Federal Confidentiality of Alcohol and Drug Abuse Patient Records regulations: The Federal rules restrict any use of the information to criminally investigate or prosecute any alcohol or drug abuse patient.[facility] Reason for Visit (unrecogniz ed section [...] HIGH COMPLEX 45 MINS Amos Floyd MD [address] [place] [address] [facility] [address] [place] [id number] Referral ID Status Reason Start Date Expiration Date Visits Requested Visits Authorized [id number] Authorized Auto-Generat ed Referral 02/20/2023 02/20/2024 99 [...] up Reason Comments 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 Onset Date Comments Refill Request 09/19/2022 Reason Onset Date Comments Left Hip Pain Immunizations 10/26/2022 Flu vaccination Reason Comments PT Eval Specialty Diagnoses / Procedures Referred By Contac t Referred To Contact [facility] Diagnoses Hip pain, unspecified laterality Procedures CONSULT TO PHYSICAL THERAPY PHYSICAL THERAPY EVALUATION HIGH COMPLEX 45 MINS Amos Floyd MD [address] [place] [address] [facility] [address] [place] [address] Referral ID Status Reason Start Date Expiration Date V isits Requested Visits Authorized [id number] Closed Auto-Generate d Referral 10/26/2022 02/19/2023 1 1 Reason Comments Pain (foot) Right side of R foot x 2 days Reason Comments Refill Request Reason Comments Established Patient Follow Up Reason Comments Medicare Wellness Exam F/U 6 months Reason Comments PT Eval Reason Comments Patient Update Reason Comments ED Follow-up [facility] Specialty Diagnoses / Procedures Referred By Contac t Referred To Contact Diagnoses Hypercalcemia Addisons Disease Procedures ER OBSERVATION Elisa Mcdonough MD [address] [place] [address] [address] [place] [address] Referral ID Status Reason Start Date Expiration Date Visits Re quested Visits Authorized [id number] 1 1 Reason Comments Clinical Update Reason [...] vaccination Specialty Diagnoses / Procedures Referred By Contac t Referred To Contact CT IMAGING Diagnoses Nodule of lower lobe of right lung Procedures CT CHEST WO IVCON DIAGNOSTIC COMPUTED TOMOGRAPHY THORAX W/O CNTRST Amos Floyd MD [address] [place] [address] [place] [address] Referral ID Status Reason Start Date Expiration Date V isits Requested Visits Authorized [id number] Closed Auto-Generate d Referral 01/15/2024 02/13/2025 1 [...] UTI Specialty Diagnoses / Procedures Referred By Contseferino t Referred To Contact Urology Diagnoses Recurrent UTI Procedures CONSULT TO UROLOGY OFFICE/OUTPATIENT NEW HIGH MDM 60 MINUTES Rocio Elizalde, MANAGER [employer] [address] [place] [address] Phone: tel: fax: Referral ID Status Reason Start Date Expiration Date V isits Requested Visits Authorized [id number] Closed PCP Requested Referral 09/13/2024 09/13/2025 1 1 Reason Comments Consult Reason Comments Follow-up Reason Comments 2 month follow-up Reason Comments Cardiac Valve Problem Hospital Follow-up Reason Onset Date Comments Procedure 10/10/2024 Reason Comments Cardiac Valve Problem Care Teams (unrecognized sec tion and content) Court Bailiff Relationship Specialty Start Date End Date Amso Floyd MD [address] [place], [place] [address] PCP - General 04/16/04 Court Bailiff Relationship Specialty Start Date End Date Amos Floyd MD [address] [place] [address] PCP - General 04/16/04 Court Bailiff Relationship Specialty Start Date End Date Amos Floyd MD [address] [place], [place] [address] PCP - General 04/16/04 Court Bailiff Relationship Specialty Start Date End Date Amos Floyd MD [address] [place], [place] [id number] PCP - General 04/16/04 Court Bailiff Relationship Specialty Start Date End Date Amos Floyd MD [address] [facility] [place] [address] PCP - General 04/16/04 Court Bailiff Relationship Specialty Start Date End Date Amos Floyd MD [address] [facility] [place] [address] PCP - General 04/16/04 Court Bailiff Relationship Specialty Start Date End Date Amos Floyd MD [address] [facility] [place] [place] [address] PCP - General 04/16/04 Court Bailiff Relationship Specialty Start Date End Date Amos Floyd MD [address] [facility] [place] [place] [address] PCP - General 04/16/04 Court Bailiff Relationship Specialty Start Date End Date Amos Floyd MD [address] [facility] [place] [place] [address] PCP - General 04/16/04 Court Bailiff Relationship Specialty Start Date End Date Amos Floyd MD [address] [facility] [place] [address] PCP - General 04/16/04 Court Bailiff Relationship Specialty Start Date End Date Amos Floyd MD [address] [facility] [place] [address] PCP - General 04/16/04 Court Bailiff Relationship Specialty Start Date End Date Amos Floyd MD [address] [facility] [place] [address] PCP - General 04/16/04 Court Bailiff Relationship Specialty Start Date End Date Amos Floyd MD [address] [facility] [place] [address] PCP - General 04/16/04 Team Status: Active [...] Floyd MD Primary Care Provider Active Basim DISLA PA Attending Provider Active Dr. Torsten [...] Active Basim DISLA, PA Attending Provider Active Court Bailiff Relationship Specialty Start Date End Date Amos Floyd MD [address] [place] [address] PCP - General 04/16/04 Court Bailiff Relationship Specialty Start Date End Date Amos Floyd MD [address] [place] [address] PCP - General 04/16/04 Team Status: Inactive [...] PA Attending Provider, Referr ing Provider Active Court Bailiff Relationship Specialty Start Date End Date Amos Floyd MD [address] [place] [address] PCP - General 04/16/04 Court Bailiff Relationship Specialty Start Date End Date Amos Floyd MD [address] [place] [address] PCP - General 04/16/04 Court Bailiff Relationship Specialty Start Date End Date Amos Floyd MD [address] [place] [address] PCP - General 04/16/04 Court Bailiff Relationship Specialty Start Date End Date Amos Floyd MD [address] [place] [address] PCP - General 04/16/04 Court Bailiff Relationship Specialty Start Date End Date Amos Floyd MD [address] [place] [address] PCP - General 04/16/04 Team Status: Inactive Member Role Status Dates Dr. Amos Floyd MD Primary Care Provider Active Dr. Jordan Marte MD Other Provider Active Basim Velasquez PA, PA Attending Provider, Referr ing Provider Active Dr. Torsten Vann MD Other Provider Active Dr. Jennifer Tarango DO Other Provider Active Court Bailiff Relationship Specialty Start Date End Date Amos Floyd MD [address] [place] [address] PCP - General 04/16/04 Court Bailiff Relationship Specialty Start Date End Date Amos Floyd MD [address] [place] [address] PCP - General 04/16/04 Court Bailiff Relationship Specialty Start Date End Date Amos Floyd MD [address] [place] [address] PCP - General 04/16/04 Team Status: Inactive Member Role Status Dates Dr. Amos Floyd MD Primary Care Provider, Refer ring Provider Active Ryan Ji [employer]LE TAPE STITCHER [employer], INSOLE TAPE STITCHER [employer]-C Attending Provider Active Court Bailiff Relationship Specialty Start Date End Date Amos Floyd MD [address] [place] [address] PCP - General 04/16/04 Court Bailiff Relationship Specialty Start Date End Date Amos Floyd MD [address] [place] [address] PCP - General 04/16/04 Team Status: Active Member Role Status Dates Dr. Amos Floyd MD Primary Care Provider Active Dr. Jordan Marte MD Other Provider Active NIGHAT Randle Attending Provider, Referr ing Provider Active Dr. Torsten Vann MD Other Provider Active Dr. Jennifer Tarango DO Other Provider Active Team Status: Active Member Role Status Dates Dr. Amos Floyd MD Primary Care Provider Active Dr. Jordan Marte MD Attending Provider Active Team Status: Inactive Member Role Status Dates Dr. Amos Floyd MD Primary Care Provider Active Ryan Ji INSOLE TAPE STITCHER [employer], INSOLE TAPE STITCHER [employer]-C Attending Provider, Referring Pro vider Active Court Bailiff Relationship Specialty Start Date End Date Amos Floyd MD [address] [facility] [place] [address] PCP - General 04/16/04 Team Status: Inactive Member Role Status Dates Dr. Amos Floyd MD Primary Care Provider Active Dr. Juan Alberto Mcclendon MD Emergency Provider Active Court Bailiff Relationship Specialty Start Date End Date Amos Floyd MD [address] [facility] [place] [address] PCP - General 04/16/04 Court Bailiff Relationship Specialty Start Date End Date Amos Floyd MD [address] [place] [address] PCP - General 04/16/04 Court Bailiff Relationship Specialty Start Date End Date Amos Floyd MD [address] [facility] [place] [place] [address] PCP - General 04/16/04 Team Status: Inactive Member Role Status Dates Dr. Amos Floyd MD Primary Care Provider Active Dr. Juan Alberto Mcclendon MD Attending Provider, Emergency Provider Active Team Status: Inactive Member Role Status Dates Dr. Amos Floyd MD Primary Care Provider Active Dr. Ankush Noguera DO Emergency Provider Active Court Bailiff Relationship Specialty Start Date End Date Amos Floyd MD [address] [facility] [place] [place] [address] PCP - General 04/16/04 Court Bailiff Relationship Specialty Start Date End Date Amos Floyd MD [address] [facility] [place] [address] PCP - General 04/16/04 Court Bailiff Relationship Specialty Start Date End Date Amos Floyd MD [address] [place] [address] PCP - General 05/01/20 Team Status: Inactive Member Role Status Dates Dr. Amos Floyd MD Primary Care Provider Active Dr. Ankush Noguera DO Attending Provider, Emergency Provider Active Team Status: Inactive Member Role Status Dates Dr. Amos Floyd MD Primary Care Provider Active Rocio INSOLE TAPE STITCHER [employer], Fide Attending Provider, Referring Prov ider Active Court Bailiff Relationship Specialty Start Date End Date Amos Floyd MD [address] [place] [address] PCP - General 04/16/04 Court Bailiff Relationship Specialty Start Date End Date Amos Floyd MD [address] [place] [address] PCP - General 04/16/04 Court Bailiff Relationship Specialty Start Date End Date Amos Floyd MD [address] [place] [address] PCP - General 04/16/04 Court Bailiff Relationship Specialty Start Date End Date Amos Floyd MD [address] [place] [address] PCP - General 04/16/04 Court Bailiff Relationship Specialty Start Date End Date Amos Floyd MD [address] [place] [address] PCP - General 04/16/04 Court Bailiff Relationship Specialty Start Date End Date Amos Floyd MD [address] [place] [address] PCP - General 04/16/04 Court Bailiff Relationship Specialty Start Date End Date Amos Floyd MD [address] [place] [address] PCP - General 04/16/04 Court Bailiff Relationship Specialty Start Date End Date Amos Floyd MD [address] [place] [address] PCP - General 04/16/04 Court Bailiff Relationship Specialty Start Date End Date Amos Floyd MD [address] [place] [address] PCP - General 04/16/04 Court Bailiff Relationship Specialty Start Date End Date Amos Floyd MD [address] [place] [address] PCP - General 04/16/04 Court Bailiff Relationship Specialty Start Date End Date Amos Floyd MD [address] [place] [address] PCP - General 04/16/04 Court Bailiff Relationship Specialty Start Date End Date Amos Floyd MD [address] [place] [address] PCP - General 04/16/04 Court Bailiff Relationship Specialty Start Date End Date Amos Floyd MD [address] [place] [address] PCP - General 04/16/04 Court Bailiff Relationship Specialty Start Date End Date Amos Floyd MD [address] [facility] [place] [address] PCP - General 04/16/04 Court Bailiff Relationship Specialty Start Date End Date Amos Floyd MD [address] [facility] [place] [address] PCP - General 04/16/04 Court Bailiff Relationship Specialty Start Date End Date Amos Floyd MD [address] [facility] [place] [address] PCP - General 04/16/04 Rocio Elizalde, MANAGER TRACK.DESIGN ENGINEER PRODUCTS [address] [facility] [place] [address] Call Centre Supervisor Internal Medicine 01/29/24 Court Bailiff Relationship Specialty Start Date End Date Amos Floyd MD [address] [facility] [place] [address] PCP - General 04/16/04 Rocio Elizalde, MANAGER TRACK.DESIGN ENGINEER PRODUCTS [address] [facility] [place] [address] Call Centre Supervisor Internal Medicine 01/29/24 Court Bailiff Relationship Specialty Start Date End Date Amos Floyd MD [address] [facility] [place] [address] PCP - General 04/16/04 Rocio Elizalde, MANAGER TRACK.DESIGN ENGINEER [employer]ODUCTS [address] [facility] [place] [address] Call Centre Supervisor Internal Medicine 01/29/24 Court Bailiff Relationship Specialty Start Date End Date Amos Floyd MD [address] [place] [address] PCP - General 04/16/04 Rocio Elizalde, LIDIA.DESIGN ENGINEER [employer] [address] [place] [address] Call Centre Supervisor Internal Medicine 01/29/24 Team Status: Active Member [...] 26, 2024 End: April 26, 2024 Basim DISLA PA Attending Provider Active Start: April 26, 2024 End: April 26, 2024 Basim DISLA PA Referring Provider Active Start: April 26, 2024 End: April 26, 2024 Dr. Torsten Vann MD Other Provider Active Start: April 26, 2024 End: April 26, 2024 Dr. Jennifer Tarango , DO Other Provider Active Sta rt: April [...] Start: May 24, 2024 Dr. Jennifer Tarango , Other Provider Active Sta rt: May 24, 2024 Team Status: Inactive Member Role Status Dates Dr. Amos Floyd MD Primary Care Provider Active Start: May 24, 2024 End: May 24, 2024 NIGHAT Burns Attending Provider Active St art: May 24, 2024 End: May 24, 2024 NIGHAT Bunrs Referring Provider Active St art: May 24, 2024 End: May 24, 2024 Team Status: Active Member Role Status Dates Dr. Amos Floyd MD Primary Care Provider Active Start: May 24, 2024 Dr. Jordan Marte MD Attending Provider Active S tart: May 24, 2024 Court Bailiff Relationship Specialty Start Date End Date Amos Floyd MD [address] [place], [place] [address] PCP - General 04/16/04 Rocio Elizalde, MANAGER TRACK.DESIGN ENGINEER [employer]ODUCTS [address] [place], [place] [address] Call Centre Supervisor Internal Medicine 01/29/24 Team Status: Inactive Member Role Status Dates Dr. Amos Floyd MD Primary Care Provider Active Start: May 24, 2024 End: June 19, 2024 Dr. Jordan Marte MD Other Provider Active Start : May 24, 2024 End: June 19, 2024 Basim Velasquez PA, PA Attending Provider Active Start: May 24, 2024 End: June 19, 2024 Basim Velasquez PA, PA Referring Provider [...] Active Start : June 21, 2024 Basim DISLA, PA Attending Provider Active Start: June 21, [...] 2024 End: July 23, 2024 Heaven Bolton INSOLE TAPE STITCHER [employer], INSOLE TAPE STITCHER [employer]-C Attending Provider Active Start: July 23, 2024 End: July 23, 2024 Court Bailiff Relationship Specialty Start Date End Date Amos Floyd MD [address] [place] [address] PCP - General 04/16/04 Rocio Elizalde, MANAGER TRACK.DESIGN ENGINEER [employer] [address] [place], [place] [address] Call Centre Supervisor Internal Medicine 01/29/24 Team Status: Inactive Member [...] Other Provider Active Start: August 09, 2024 Court Bailiff Relationship Specialty Start Date End Date Amos Floyd MD [address] [place] [address] PCP - General 04/16/04 Rocio Elizalde, MANAGER TRACK.DESIGN ENGINEER [employer]ODUCTS [address] [facility] [place] [address] Call Centre Supervisor Internal Medicine 01/29/24 Annemarie Read, reading specialist Wind Project Manager Pulmonary Disease 08/15/24 Court Bailiff Relationship Specialty Start Date End Date Amos Floyd MD [address] [place] [address] PCP - General 04/16/04 Rocio Elizalde, MANAGER TRACK.DESIGN ENGINEER [employer] [address] [place] [address] Call Centre Supervisor Internal Medicine 01/29/24 Annemarie Read, reading specialist Wind Project Manager Pulmonary Disease 08/15/24 Court Bailiff Relationship Specialty Start Date End Date Amos Floyd MD [address] [facility] [place] [address] PCP - General 04/16/04 Rocio Elizalde, MANAGER TRACK.DESIGN ENGINEER [employer]CTS [address] [place] [address] Call Centre Supervisor Internal Medicine 01/29/24 Annemarie Read, reading specialist Wind Project Manager Pulmonary Disease 08/15/24 Court Bailiff Relationship Specialty Start Date End Date Amos Floyd MD [address] [facility] [place] [address] PCP - General 04/16/04 Rocio Elizalde, MANAGER TRACK.DESIGN ENGINEER [employer]ODUCTS [address] [place] [address] Call Centre Supervisor Internal Medicine 01/29/24 Annemarie Read, reading specialist Wind Project Manager Pulmonary Disease 08/15/24 Court Bailiff Relationship Specialty Start Date End Date Amos Floyd MD [address] [place] [address] PCP - General 04/16/04 Rocio Elizalde, MANAGER TRACK.DESIGN ENGINEER [employer]CTS [address] [place] [address] Call Centre Supervisor Internal Medicine 01/29/24 Annemarie Read, reading specialist Wind Project Manager Pulmonary Disease 08/15/24 Court Bailiff Relationship Specialty Start Date End Date Amos Floyd [address] [place] [address] PCP - General Internal Medicine 09/03/24 Court Bailiff Relationship Specialty Start Date End Date Amos Floyd [address] [place] [address] PCP - General Internal Medicine 09/03/24 Team [...] 2024 End: July 23, 2024 Heaven Bolton INSOLE TAPE STITCHER [employer], INSOLE TAPE STITCHER [employer]-C Attending Provider Active Start: July 23, 2024 [...] September 10, 2024 End: September 10, 2024 Court Bailiff Relationship Specialty Start Date End Date Amos Floyd MD [address] [place], [place] [address] PCP - General 04/16/04 Rocio Elizalde, MANAGER TRACK.DESIGN ENGINEER [employer]ODUCTS [address] [place] [address] Call Centre Supervisor Internal Medicine 01/29/24 Court Bailiff Relationship Specialty Start Date End Date Amos Floyd [address] [place] [address] PCP - General Internal Medicine 09/03/24 Court Bailiff Relationship Specialty Start Date End Date Amos Floyd [address] [place] [address] PCP - General Internal Medicine 09/03/24 Court Bailiff Relationship Specialty Start Date End Date Amos Floyd MD [address] [place] [address] PCP - General 04/16/04 Rocio Elizalde, MANAGER TRACK.DESIGN ENGINEER [employer]ODUCTS [address] [place] [address] Call Centre Supervisor Internal Medicine 01/29/24 Court Bailiff Relationship Specialty Start Date End Date Amos Floyd [address] [place] [address] PCP - General Internal Medicine 09/03/24 Court Bailiff Relationship Specialty Start Date End Date Amos Floyd [address] [place] [address] PCP - General Internal Medicine 09/03/24 Court Bailiff Relationship Specialty Start Date End Date Amos Floyd [address] [place] [address] PCP - General Internal Medicine 09/03/24 Team Status: Inactive Member Role/Relationship Status Dates Dr. Amos Floyd MD Primary Care Provider Active Start: June 21, 2024 End: June 21, 2024 Dr. Jordan Marte MD Other Provider Active Start : June 21, 2024 End: June 21, 2024 Basim DISLA, PA Attending Provider Active Start: June 21, 2024 End: June 21, 2024 Basim M Velasquez PA, PA Referring Provider Active Start: [...] 2024 End: July 23, 2024 Heaven Bolton INSOLE TAPE STITCHER [employer], INSOLE TAPE STITCHER [employer]-C Attending Provider Active Start: July 23, 2024 [...] October 03, 2024 End: October 03, 2024 Court Bailiff Relationship Specialty Start Date End Date Amos Floyd [address] [place], [place] [address] PCP - General Internal Medicine 09/03/24 Court Bailiff Relationship Specialty Start Date End Date Amos Floyd [address] [place], [place] [address] PCP - General Internal Medicine 09/03/24 Court Bailiff Relationship Specialty Start Date End Date Amos Floyd [address] [place], [place] [address] PCP - General Internal Medicine 09/03/24 Team [...] 2024 End: July 23, 2024 Heaven Bolton INSOLE TAPE STITCHER [employer], INSOLE TAPE STITCHER [employer]-C Attending Provider Active Start: July 23, 2024 [...] rt: August 09, 2024 Dr. Nixon Silverio , DO Admit Provider Active Start: August 09, [...] October 15, 2024 End: October 15, 2024 Court Bailiff Relationship Specialty Start Date End Date Amos Floyd [address] [facility] [place] [address] PCP - General Internal Medicine 09/03/24 Court Bailiff Relationship Specialty Start Date End Date Amos Floyd [address] [place] [address] PCP - General Internal Medicine 09/03/24 Court Bailiff Relationship Specialty Start Date End Date Amos Floyd MD [address] [place] [address] PCP - General 04/16/04 Rocio Elizalde, LIDIA.DESIGN ENGINEER PRODUCTS [address] [place] [address] Call Centre Supervisor Internal Medicine 01/29/24 Court Bailiff Relationship Specialty Start Date End Date Amos Floyd [address] [place] [address] PCP - General Internal Medicine 09/03/24 Court Bailiff Relationship Specialty Start Date End Date Amos Floyd [address] [place] [address] PCP - General Internal Medicine 09/03/24 Team Status: Active Member Role/Relationship Status Dates Dr. Amos Floyd MD Primary care physician Activ e Team Status: Inactive Member Role/Relationship Status Dates Dr. Amos Floyd MD Primary care physician Activ e Start: July 23, 2024 End: July 23, 2024 Dr. Amos Floyd MD Referring Provider Active Start: July 23, 2024 End: July 23, 2024 Heaven Bolton INSOLE TAPE STITCHER [employer], INSOLE TAPE STITCHER [employer]-C Attending physician Active Start: July 23, 2024 [...] Silverio DO Admitting physician Active Start: August 07, [...] August 09, 2024 Dr. Nixon Silverio , Nurse Practitioner Active Start: August 09, 2024 Dr. Jairo Mitchell DO Attending physician Active Start: August 09, 2024 Dr. Jairo Mitchell , Nurse Practitioner Active Start: August 09, 2024 [...] November 14, 2024 End: November 14, 2024 Court Bailiff Relationship Specialty Start Date End Date Amos Floyd [address] [place] [address] PCP - General Internal Medicine 09/03/24 Court Bailiff Relationship Specialty Start Date End Date Amos Floyd [address] [place] [address] PCP - General Internal Medicine 09/03/24 Team [...] Start: December 10, 2024 Dr. Jennifer Tarango DO Attending physician Active Start: December 10, 2024 Dr. Jennifer Tarango DO Referring Provider Active Start: December 10, 2024 Court Bailiff Relationship Specialty Start Date End Date Amos Floyd [address] [place] [address] PCP - General Internal Medicine 09/03/24 Scheduled [...] work flow) 0408 (Given - Provider: Yevgeniy Odom RN) cephalexin (Keflex) capsule 500 mg 500 mg, [...] Dominguez RN) 0838 (Given - Provider: Shakira Corley RN)2100 (Due) hydrocortisone (Cortef) tablet 20 mg 20 mg, oral, Daily, First dose on Mon05/24/23 at 0915 1115 (Given - Provider: Aicha Call RN) 0934 (Given - Provider: Aicha Call RN) 0838 (Given - Provider: Shakira Corley RN) promethazine (Phenergan) 12.5 mg in sodium chloride 0.9% 50 mL IV (COMPLETED) 12.5 mg, intravenous, Administer over 15 Minutes, Once, On Madalyn 05/25/23 at 1030, For 1 dose 1048 (Given - Provider: Aicha Call RN) simvastatin (Zocor) tablet 20 mg 20 mg, oral, Nightly, First dose on Mon05/24/23 at 2100 2013 (Given - Provider: Yevgeniy Odom RN) 1999 (Given - Provider: Angelica Dominguez RN) 2100 [...] hours 1733 (New Bag - Provider: Aicha Call, ROSS)2110 (Rate/Dose Verify - Provider: Yevgeniy Odom RN)2328 [...] 3-5 minutes. 0458 (Given - Provider: Yevgeniy Odom, ROSS)174 (Given - Provider: Aicha Call, ROSS) ondansetron [...] Mcgee RN) 933 (Given - Provider: Del Allen, ROSS) atorvastatin (Lipitor) tablet 10 mg 10 mg, Oral, Nightly, First dose on Mon10/23/24 at 2100, Substituted for simvastatin (Zocor). 2054 (Given - Provider: Krystal Mcgee RN) furosemide (Lasix) tablet 40 mg 40 mg, Oral, Daily, First dose on Madalyn 10/24/24 at 0900 933 (Given - Provid er: Del Allen RN) [...] On Mon10/24/24 at 0800, For 1 dose 933 (Given - Provid er: Del Allen RN) lisinopril tablet 5 mg 5 mg, Oral, Daily, First dose on Madalyn 10/24/24 at 0900 0907 (Not Given - Provider: Del Allen RN - Reason: Other - Comment: holding, syst 100) methenamine hippurate (Hiprex) tablet 1 g 1 g, Oral, Nightly, First dose on Mon10/23/24 at 2100 2054 (Given - Provider: Krystal Mcgee, ROSS) mupirocin (Bactroban) 2 % ointment 1 Application 1 Application, Nasal, 2 times daily, First dose on Mon10/23/24 at 0945, For 5 days, Recovery & On Unit, Indications: MRSA Nasal Decolonization 937 (Not Given - Provider: Ben Ontiveros RN - Reason: Patient/family refused)2054 (Given - Provider: Krystal Mcgee, ROSS) 937 (Given - Provider: Del Allen, ROSS) vancomycin (Vancocin) 1,000 mg in sodium chloride 0.9 % 250 mL IVPB (Vial Mate) (COMPLETED) 1,000 mg, IntraVENous, at 166.7 mL/hr, Administer over 90 Minutes, Estate Attorney to O.R., On Mon10/23/24 at 0545, For 1 dose, Preprocedure, Administer within 1 hour prior to incision. Vial Mate, Suspected Indication (Select all that apply): Surgical Prophylaxis 0745 (New Bag - Provider: Elijah Zaldivar APRN - MOL[employer] PAD) PRN Medication Order 10/22/2024 10/23/2024 10/24/2024 acetaminophen [...] BE BASED ON THE PRIMARY CLINICAL RECORDS. [facility]. provides no warranty or guarantee of the accuracy or completeness of information in this document.
[2025-02-13 15:14] LABS: Anion Gap 15 (7-18); BUN 44 mg/dL (4-19); BUN/Creat Ratio 25.3 RATIO (10-20); Calcium,Total 9.5 mg/dL (7.6-11.0); Carbon Dioxide 18.2 mmol/L (20.0-29.0); Chloride 109 mmol/L (96-106); Estimated Creatinine Clearance 23.14 ml/min (50-250); Glucose 123 mg/dL (70-99); Magnesium 2.3 mg/dL (1.5-2.2); Potassium 5.1 mmol/L (3.5-5.1)
[2025-02-13 15:28] LABS: Pro- Brain NATRIURETIC PEPTIDE > 70000 pg/mL (<=1800); Troponin T High Sensitivity 130 ng/L (<=14)
--- NOTE | 2025-02-13 16:16 | EDS_ITS ---
HPI History of Present Illness Chief Complaint: Shortness of Breath Narrative Narrative: Patient is an 79-year-old female presenting to the emergency department for dyspnea that started last night and middle the night. Patient has a past medical history of aortic stenosis status post TAVR in October on the 2024, nonsustained V. tach, dilated cardiomyopathy, DVT, hypertension, hyperlipidemia, NSTEMI. She is on eliquis. Follows with Dr. Marte. Patient states that recently she has been unable to lie flat due to shortness of breath. States that with any exertion she feels short of breath. When she is sitting straight up she feels like dyspneic. She denies recent viral like symptoms. Endorses intermittent left sided chest pressure. Denies nausea, vomiting, abdominal pain. Denies any worsening lower extremity edema from baseline. [facility] Medical History Dilated cardiomyopathy NSVT (nonsustained ventricular tachycardia) CHF exacerbation Dyspnea Epistaxis Overweight (BMI 25.0-29.9) Aortic stenosis Aortic stenosis, severe [place]'s disease MVP (mitral valve prolapse) Aortic stenosis Hypokalemia Elevated serum creatinine Acute prerenal azotemia Chronic kidney disease Hypercalcemia Frequent falls Closed head injury (03/20/20) Hypoglycemia (03/20/20) Acute electrocardiogram changes Atopic dermatitis Osteopenia determined by x-ray History of pulmonary embolism retirement (current) use of anticoagulants Orthostatic hypotension Chronic kidney disease, stage 3 [place] disease Essential (primary) hypertension Hyperlipidemia Recurrent deep vein thrombosis (DVT) History of non-ST elevation myocardial infarction (NSTEMI) (04/2009) Pyelonephritis Cystocele with rectocele History of DVT (deep vein thrombosis) Hypotension Home Medications ?Medication ?Instructions ?Recorded ?Last Taken ?Type denosumab 60 mg/mL subcutaneous 60 mg subcut [id number] bone health 11/24/22 01/13/25 Rx syringe (Prolia) #1 mL nitroglycerin 0.4 mg sublingual 0.4 mg sublingual Q5-1 5M PRN 07/26/23 Unknown Rx tablet Cardiac/Chest Pain #25 tabs methenamine hippurate 1 gram tablet 1 g PO QHS 5 Unknown History simvastatin 20 mg tablet 20 mg PO QHS cholesterol #90 tabs 07/23/24 Unknown Rx ascorbic acid (vitamin C) 1,000 mg 1,000 mg PO QHS vit evans 08/07/24 Unknown Hi story tablet hydrocortisone 10 mg tablet 10 mg PO TID inflammation #27 tabs 08/09/24 Unknown Rx metoprolol succinate 50 mg 50 mg PO BID blood pressure 02/11/25 Unknown History tablet,extended release 24 hr apixaban 5 mg tablet (Eliquis) 2.5 mg PO BID blood thi nner 02/13/25 Unknown History furosemide 20 mg tablet 20 mg PO DAILY PRN weight ga in 02/13/25 Unknown History Allergy/AdvReac Type Severity Reaction Status Date / Time ciprofloxacin (From Cipro) Allergy Rash Verified 02/13/25 13:53 Penicillins Allergy Rash Verified 02/13/25 13:53 Family History Father CVA (cerebral vascular accident) Mother Myocardial infarction, Onset Age: 87 Other History of DVT (deep vein thrombosis) retirement (current) use of anticoagulants Surgical History 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) History of left heart catheterization (04/2009) History of left nephrectomy (2000) History of total abdominal hysterectomy History of bladder repair surgery H/O partial nephrectomy (2009) H/O total cystectomy Social History Smoking Status: Never smoker alcohol intake: never substance use type: does not use caffeine: Yes what type of physical activity do you participate in: walking seatbelt use: always do you feel safe at home: Yes additional social history: [place]- Retired patient is retired ROS ROS ED ROS Narrative see HPI EXAM Physical Exam Narrative Exam Narrative: Vital signs: Reviewed General: Alert and oriented x 3. No acute distress. Chronically ill-appearing, nontoxic HEENT: Head is normocephalic and atraumatic, sinuses nontender, pupils equal round and reactive. Nares are patent. Oropharynx and throat exams normal. Neck: Supple without lymphadenopathy nontender Cardiovascular: Tachycardic rate and regular rhythm. Systolic murmur heard. No rubs or gallops. Normal S1 and S2 Respiratory: Clear to auscultation bilaterally. No wheezes, rales, rhonchi. T achypneic. Saturating 97% on room air. Abdominal: Soft and nontender. Normal bowel sounds. No guarding or rebound. Nonsurgical abdomen Extremities: No lower extremity edema. No tenderness. No bruising. Normal range of motion. Normal sensation. Skin: No rash or redness. The rest of the physical exam is unremarkable Const Vital Signs: 02/13/25 13:42 02/13/25 13:53 02/13/25 13:55 Temperature 97.4 F L 97.4 F L Temperature Source Oral Oral Pulse Rate 96 96 Respiratory Rate 28 H 28 H Respiratory Effort Normal Non-Labored Respiratory Pattern Tachypnea Blood Pressure 134/113 H 134/113 H Blood Pressure Mean 120 120 Pulse Ox 97 97 Oxygen Delivery Method Room Air Room Air Room Air 02/13/25 14:45 02/13/25 15:00 02/13/25 16:50 Temperature 97.5 F L 98.2 F Temperature Source Oral Oral Pulse Rate 103 H 99 100 Respiratory Rate 22 H 24 H 25 H Respiratory Effort Respiratory Pattern Blood Pressure 124/104 H 133/94 H 130/99 H Blood Pressure Mean 110 107 109 Pulse Ox 94 98 100 Oxygen Delivery Method Room Air Room Air Room Air MDM MDM MDM Narrative Medical decision making narrative: Patient is a 79-year-old female presenting to the emergency department for shortness of breath that started last night. Patient was seen and examined. Vitals with tachypnea in the high 20s to low 30s. Patient saturating 97% on room air. She is afebrile. Pulse is in the high 90s to low 100s and appears sinus on the monitor. Patient is mildly hypertensive. Differential includes but is not limited to: CHF exacerbation, pneumonia, ACS, URI, less likely PE given patient is anticoagulated and has not missed any doses EKG shows sinus tachycardia with sinus arrhythmia. Appears similar to EKG obtained on December 27, 2024. No new ischemic changes noted. CBC with mild nonspecific leukocytosis of 11.5 and a normal hemoglobin. BMP with baseline slightly worsening kidney function with a BUN of 44 and creatinine of 1.75. Magnesium within normal limits. [place] [address]. Initial troponin of 130, reflex pending. Baseline of 97 from 12/27. I do not think this is true ACS in nature. CXR appears similar to prior with bilateral small pleural effusions and cardiomegaly. No significant vascular congestion is noted. Will give the patient 20 mg IV Lasix, she is only on as needed Lasix at home. Discussed the findings with the patient and daughter at bedside and recommended admission. Admitted to Dr. Fontaine for further management of CHF exacerbation Clinical impression: CHF exacerbation History & Record Review Discussion w/independent historian: Patient and Family Additional record(s) reviewed:: Prior ED visit and Prior labs Lab Data Attestation: I reviewed the patient's lab results. Labs: Laboratory Results - last 24 hr 02/13/25 14:44 WBC 11.5 H RBC 4.78 Hgb 13.6 Hct 43.0 MCV 90.0 MCH 28.5 MCHC 31.6 L RDW Std Deviation 57.1 H RDW Coeff of Slava 17.4 H Plt Count 179 MPV 12.0 Immature Gran % (Auto) 1.000 H Neut % (Auto) 78.0 H Lymph % (Auto) 11.3 L [place] % (Auto) 7.9 Eos % (Auto) 1.1 Baso % (Auto) 0.7 Absolute Neuts (auto) 9.0 H Absolute Lymphs (auto) 1.30 Nucleated RBC % 0 Sodium 142 Potassium 5.1 Chloride 109 H Carbon Dioxide 18.2 L Anion Gap 15 BUN 44 H Creatinine 1.75 H Estim Creat Clear Calc 23.14 L Est GFR (MDRD) Non-Af 29 L BUN/Creatinine Ratio 25.3 H Glucose 123 H Calcium 9.5 Magnesium 2.3 H Troponin T High Sens 130 H* D [place] II > [address] H Radiography Chest X-Ray - ED: 2 View, Read by ED Physician, No Acute Disease, Cardiomegaly, Right Effusion and Left Effusion Diagnostic Testing: Clinical Impression(s) from Imaging Studies Chest X-Ray 02/13/25 14:24 IMPRESSION: Unchanged minimal bilateral pleural effusions. Associated passive atelectatic airspace disease of the lower lobes. Exaggerated kyphosis, unchanged. Mild chronic compression deformities of the lower thoracic vertebral bodies, unchanged. Enlarged cardiac silhouette. Reading Location: [facility] Discharge Plan Triage Chief Complaint: Shortness of Breath ED Provider: Chel Person Dx/Rx/DC Orders Prescriptions: No Action Prolia 60 mg/mL syringe 60 mg subcut [id number] Qty: 1 1RF methenamine hippurate 1 gram tablet 1 g PO QHS nitroglycerin 0.4 mg tablet, sublingual 0.4 mg SUBLINGUAL Q5-15M PRN (Reason: Cardiac/Chest Pain) Qty: 25 3RF simvastatin 20 mg tablet 20 mg PO QHS Qty: 90 3RF ascorbic acid (vitamin C) 1,000 mg tablet 1,000 mg PO QHS hydrocortisone 10 mg tablet 10 mg PO TID Qty: 27 0RF Rx Instructions: 4 tabs TID for 3 days, then 3 tabs TID for 3 days, then 2 tabs TID for 3 days. Eliquis 5 mg tablet 2.5 mg PO BID furosemide 20 mg tablet 20 mg PO DAILY PRN (Reason: weight gain) metoprolol succinate 50 mg tablet extended release 24 hr 50 mg PO BID Primary Care Provider: Amos Fulton Referrals: Amos Fulton MD [Primary Care Provider, Internal Medicine] Print Language: German
--- NOTE | 2025-02-13 16:44 | HP.PCM.HOS_ITS ---
HPI - General General Date of Admission: 02/13/25 Date of Service: 02/13/25 Chief Complaint: Dyspnea, orthopnea. HPI Narrative The patient is an 79 yo F w/ PMHx: [place]'s disease, CKD stage III unclear subtype or GFR trending, Valvular Heart Disease s/p TAVR, Hx Renal cancer s/p partial R nephrectomy w/ Hx donation prior to diagnosis for sibling s/p left nephrectomy, HTN, HLD, CKD stage III per GFR, unclear subtype, Hx VTE 07/2024 (DVT, PE) on Eliquis, HFrEF/Dilated cardiomyopathy following w/ the Heart Failure Clinic at [facility] (Dr. Mercedes), Hx NSVT who presents to the [facility] ED on 02/13/2025 with history of onset of dyspnea, worse with exertion with intermittent nonproductive cough, worsening through the evening and into today prompting ED evaluation to be cautious. She reports additionally orthopnea. She also notes intermittent left-sided chest pressure sensation. She states that her lower extremity swelling is at baseline. Current weights with 01/27/2025 weight 145 pounds and today noted 02/13/2025 weight 154 pounds 12.232 ounces. Workup in the ED included T97.4, heart rate 96, BP 134/113, respiratory rate 28, 97% on room air with most recent repeat vitals T98.2, heart rate 99, BP 133/94, respiratory rate 24, 98% on room air, CBC with WC 11.5, Hgb 13.6, platelet 179 with left shift, BMP with chloride 109, carbon oxide 18.2, anion gap 15, BUN/Cr 44/1.75, GFR 29, glucose 123, magnesium 2.3, troponin 130, NT proBNPII greater than 70,000, chest x-ray with unchanged minimal bilateral pleural effusions with associated passive atelectasis in both lower lobes and exaggerated kyphosis with enlarged cardiac silhouette as well as mild chronic compression deformities of the lower thoracic vertebral bodies all unchanged, EKG SR with no acute evidence of ischemia. In the ED patient ministered Lasix 20 mg IV x 1. [facility] Medical History Dilated cardiomyopathy NSVT (nonsustained ventricular tachycardia) CHF exacerbation Dyspnea Epistaxis Overweight (BMI 25.0-29.9) Aortic stenosis Aortic stenosis, severe Kyler's disease MVP (mitral valve prolapse) Aortic stenosis Hypokalemia Elevated serum creatinine Acute prerenal azotemia Chronic kidney disease Hypercalcemia Frequent falls Closed head injury (03/20/20) Hypoglycemia (03/20/20) Acute electrocardiogram changes Atopic dermatitis Osteopenia determined by x-ray History of pulmonary embolism senior living (current) use of anticoagulants Orthostatic hypotension Chronic kidney disease, stage 3 [place] disease Essential (primary) hypertension Hyperlipidemia Recurrent deep vein thrombosis (DVT) History of non-ST elevation myocardial infarction (NSTEMI) (04/2009) Pyelonephritis Cystocele with rectocele History of DVT (deep vein thrombosis) Hypotension Home Medications ?Medication ?Instructions ?Recorded ?Last Taken ?Type denosumab 60 mg/mL subcutaneous 60 mg subcut [id number] bone health 11/24/22 01/13/25 Rx syringe (Prolia) #1 mL nitroglycerin 0.4 mg sublingual 0.4 mg sublingual Q5-1 5M PRN 07/26/23 Unknown Rx tablet Cardiac/Chest Pain #25 tabs methenamine hippurate 1 gram tablet 1 g PO QHS 5 Unknown History simvastatin 20 mg tablet 20 mg PO QHS cholesterol #90 tabs 07/23/24 Unknown Rx ascorbic acid (vitamin C) 1,000 mg 1,000 mg PO QHS vit evans 08/07/24 Unknown History tablet hydrocortisone 10 mg tablet 10 mg PO TID inflammation #27 tabs 08/09/24 Unknown Rx metoprolol succinate 50 mg 50 mg PO BID blood pressure 02/11/25 Unknown History tablet,extended release 24 hr apixaban 5 mg tablet (Eliquis) 2.5 mg PO BID blood thi nner 02/13/25 Unknown History furosemide 20 mg tablet 20 mg PO DAILY PRN weight ga in 02/13/25 Unknown History Allergy/AdvReac Type Severity Reaction Status Date / Time ciprofloxacin (From Cipro) Allergy Rash Verified 02/13/25 13:53 Penicillins Allergy Rash Verified 02/13/25 13:53 Family History Father CVA (cerebral vascular accident) Mother Myocardial infarction, Onset Age: 87 Other History of DVT (deep vein thrombosis) senior living (current) use of anticoagulants Surgical History 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) History of left heart catheterization (04/2009) History of left nephrectomy (2000) History of total abdominal hysterectomy History of bladder repair surgery H/O partial nephrectomy (2009) H/O total cystectomy Social History Smoking Status: Never smoker alcohol intake: never substance use type: does not use caffeine: Yes what type of physical activity do you participate in: walking seatbelt use: always do you feel safe at home: Yes additional social history: [employer]- Retired patient is retired ROS ROS Narrative Admission Review of Systems: CONSTITUTIONAL: No weight loss, fever, chills, + weakness or fatigue. HEENT: Eyes: No visual loss, blurred vision, double vision or yellow sclerae. Ears, Nose, Throat: No hearing loss, sneezing, congestion, runny nose or sore throat. SKIN: No rash or itching, lesions, wounds. CARDIOVASCULAR: + Chronic edema, orthopnea no chest pain, chest pressure or chest discomfort, palpitations, syncopal events. RESPIRATORY: + Dyspnea, worse with exertion. No marked cough or sputum, wheezing, hemoptysis. GASTROINTESTINAL: No anorexia, nausea, vomiting or diarrhea, abdominal pain, melena, BRBPR. GENITOURINARY: No dysuria, frequency, urgency or retention. NEUROLOGICAL: No headache, dizziness, syncope, paralysis, ataxia, numbness or tingling in the extremities, focal weakness, change in bowel or bladder control, seizure. MUSCULOSKELETAL: + muscle, back pain, joint pain or stiffness. HEMATOLOGIC: + History of anemia. + Easy bleeding/bruising. LYMPHATICS: No enlarged nodes. No history of splenectomy. PSYCHIATRIC: No history of depression or anxiety. ENDOCRINOLOGIC: No reports of sweating, cold or heat intolerance. No polyuria or polydipsia. ALLERGIES: No history of asthma, hives, eczema or rhinitis. Patient's Goals Of Care . What would you like to achieve or improve as a result of your hospital stay?: I mproved function, resolution of exertional dyspnea and orthopnea. Vital Signs Vital Signs Vital Signs: 02/13/25 13:42 02/13/25 13:53 02/13/25 13:55 Temperature 97.4 F L 97.4 F L Temperature Source Oral Oral Pulse Rate 96 96 Respiratory Rate 28 H 28 H Respiratory Effort Normal Non-Labored Respiratory Pattern Tachypnea Blood Pressure 134/113 H 134/113 H Blood Pressure Mean 120 120 Pulse Ox 97 97 Oxygen Delivery Method Room Air Room Air Room Air 02/13/25 14:45 02/13/25 15:00 Temperature 97.5 F L 98.2 F Temperature Source Oral Oral Pulse Rate 103 H 99 Respiratory Rate 22 H 24 H Respiratory Effort Respiratory Pattern Blood Pressure 124/104 H 133/94 H Blood Pressure Mean 110 107 Pulse Ox 94 98 Oxygen Delivery Method Room Air Room Air Weight Weight: 154 lb 12.232 oz Body Mass Index (BMI) 28.3 Physical Exam Narrative Physical Examination: General: Awake, alert, oriented x 3 and cooperative, seated upright in ED bed, fatigued otherwise no acute distress. Skin: Normal color, normal turgor, no icterus, no cyanosis except occasional stage ecchymoses, abrasion. HEENT: AT/NC, EOMI, PERRLA, MMM, no carotid bruits, difficult to discern JVD given loose skin on the neck. Lungs: Diminished, greater bases, mildly increased respiratory rate but no distress, very mild distant rales at bases, no rhonchi or wheezing. Heart: Regular rate and rhythm; no gallop, rub audible, + SM. Abdomen: Soft, overweight, NTTP, ND, mildly hyperactive BS, no appreciated HSM. Extremities: No cyanosis, no clubbing, pedal to distal to knee pitting edema, chronic and stable per patient report. Neurological: Patient awake, alert, oriented as noted, cognitive function intact; pupils equally reactive to light and accommodation, cranial nerves grossly normal, moving all 4 extremities, no focal deficits, strength moderately to severely globally decreased secondary to acute presentation complicated by underline comorbidities. Psychiatric: Affect appears mildly fatigued, flat, no acute evidence of depressive or anxiety feelings. Results Lab / Micro Data 02/13/25 14:44 02/13/25 14:44 Labs: Laboratory Results - last 24 hr 02/13/25 14:44: WBC 11.5 H, RBC 4.78, Hgb 13.6, Hct 43.0, MCV 90.0, MCH 28.5, M CHC 31.6 L, RDW Std Deviation 57.1 H, RDW Coeff of Slava 17.4 H, Plt Count 179, MPV 12.0, Immature Gran % (Auto) 1.000 H, Neut % (Auto) 78.0 H, Lymph % (Auto) 11.3 L, [place]in[place] % (Auto) 7.9, Eos % (Auto) 1.1, Baso % (Auto) 0.7, Absolute Neuts (auto) 9.0 H, Absolute Lymphs (auto) 1.30, Nucleated RBC % 0, Sodium 142, Potassium 5.1, Chloride 109 H, Carbon Dioxide 18.2 L, Anion Gap 15, BUN 44 H, C reatinine 1.75 H, Estim Creat Clear Calc 23.14 L, Est GFR (MDRD) Non-Af 29 L, B UN/Creatinine Ratio 25.3 H, Glucose 123 H, Calcium 9.5, Magnesium 2.3 H, T roponin T High Sens 130 H* D, [place] II > 77[address] H Imaging Radiology Impression Chest X-Ray 02/13/25 14:24 IMPRESSION: Unchanged minimal bilateral pleural effusions. Associated passive atelectatic airspace disease of the lower lobes. Exaggerated kyphosis, unchanged. Mild chronic compression deformities of the lower thoracic vertebral bodies, unchanged. Enlarged cardiac silhouette. Reading Location: [facility] Assessment & Plan Assessment/Plan (1) Acute exacerbation of chronic heart failure: PLAN: Plan The patient is an 79 yo F w/ PMHx: [place]'s disease, CKD stage III unclear subtype or GFR trending, Valvular Heart Disease s/p TAVR, Hx Renal cancer s/p partial R nephrectomy w/ Hx donation prior to diagnosis for sibling s/p left nephrectomy, HTN, HLD, CKD stage III per GFR, unclear subtype, Hx VTE 07/2024 (DVT, PE) on Eliquis, HFrEF/Dilated cardiomyopathy following w/ the Heart Failure Clinic at [facility] (Dr. Mercedes), Hx NSVT who presents to the [facility] ED on 02/13/2025 with history of onset of dyspnea, worse with exertion with intermittent nonproductive cough, worsening through the evening and into today prompting ED evaluation to be cautious. #1. Acute Decompensated HFrEF/Dilated Cardiomyopathy associated elevated cardiac troponin of unclear significance, potentially evolving NSTEMI but uncertain (of note the medical center cardiac catheterization with normal coronary arteries performed prior to TAVR surgery) complicated by #2: Will admit to PCU, maintain on cardiac telemetry, continue cardiac enzymes initially per ED, obtain EKGs as needed, continue IV lasix diuresis, monitor I/Os, maintain on intake restriction, continue medical therapy including Eliquis, statin therapy, metoprolol, not on BIMAL/ARB potentially secondary to renal dysfunction history, will obtain TSH, magnesium level per ED 2.3. Most recent ECHO as noted 12/27/2024 but given notably elevated cardiac enzymes will repeat. Cardiology consultation requested. #2. Valvular Heart Disease: s/p TAVR 10/2024, 12/27/2024 echocardiogram with LV moderately dilated, EF 15%, LV function severely reduced, grade 3 diastolic dysfunction, global hypokinesis, Elliot JUSTIN 3 ultra bioprosthetic AV size 23 mm present, normal prosthetic valve function, moderate-severe mitral regurgitation with no significant change from previous 11/03/2024 echocardiogram. #3. Chronic Kidney Disease Stage III, unclear subtype or GFR trend: Admission BUN/Cr 44/1.75, GFR 29, usually GFR consistent with stage III, baseline renal function 1.5-1.8, repeat BMP in AM. 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 #5. History of renal cancer: Status post previous partial right nephrectomy, unfortunately prior to this had already donated the left kidney to a sibling. Following with nephrology outpatient, encourage follow-up as previously arranged. #6. History NSVT: Will continue patient home metoprolol regimen. #7. History of VTE: Patient with history of DVT, PE 07/2024, will continue Eliquis home regimen. #8. Hypertension: Continue home regimen including metoprolol, IV Lasix as noted, PRN hydralazine. #9. Hyperlipidemia: Continue home statin regimen. AM FLP. #10. DVT prophylaxis: Continue home Eliquis regimen. #11. CODE status: Patient ROBERTO is her daughter who is present and living will is currently in place. Discussed CODE status at length including difference between FULL code, DNR-CCA and DNR-CC status. Following discussions about the differences in these status, requested DNR-CCA, no intubation. Advanced Care Planning Face to Face Time: 16 minutes. Charges/Coding Visit Charges Inpatient E&M: 26303 Init Hosp L3 Procedures Hospitalists Procedures: 16568 Advncd Care Plan 30 Min
[2025-02-13] MEDS: Furosemide 20 MG/2 ML VIAL IV (16:48)
[2025-02-13 17:01] LABS: Troponin T High Sens 2 HR 124 ng/L (<=14)
--- OUTSIDE RECORDS SUMMARY | 2025-02-13 17:44 | XMS RPT_ITS | CCD ---
Author Organization [facility] CliniSynv Care Team Providers Care Fire Fighters Dispatcher Name Role Phone ABEL HOLM Unavailable Unavailable [...] Logan Tripathi Other Provider Unavailab tomas Palencia BOOTH OPERATOR, BOOTH OPERATOR-C Diana Other Provider Dr. Alberto Gregorio [...] Logan Tripathi Other Provider Unavailab tomas Palencia BOOTH OPERATOR, BOOTH OPERATOR-C Diana Other Provider Dr. Alberto Gregorio [...] Provider Dr. Torsten Vann Attending Provider Roof BOOTH OPERATOR, BOOTH OPERATOR-Pasquale Prince Attending Provider Donaldo, Dr. Trinidad Primary Care Provider Floyd, Dr. Trinidad Referring Provider Dr. Jordan Marte Attending Provider Dr. Amos Floyd Primary Care Provider Donaldo, Dr. Trinidad Referring Provider Roof BOOTH OPERATOR, BOOTH OPERATOR-Pasquale Prince Attending Provider Dr. Jordan Marte Attending Provider ELISA MCDONOUGH Admitting Unavailable ELISA MCDONOUGH Attending Unavailable AMOS FLOYD Primary Care Unavailable Amos Floyd MD Primary Care Provider ELISA MCDONOUGH Admitting Unavailable AMOS FLOYD Primary Care Unavailable JAZMINE BRITT Attending Unavailable ALEXANDER GREGORY Consulting Unavailable Amos Floyd MD Primary Care Provider Fide DISEASE EDUCATION SPECIALIST.PILL PACKER, Rocio M Unavailable Dr. Amos Floyd MD Primary Care Provider Dr. Jordan Marte MD Other Provider Basim Shannon Attending Provider Basim Shannon Referring Provider Dr. Torsten Vann MD Other Provider Dr. Jennifer Tarango DO Other Provider [phone] Jennifer Tarango DO Attending Provider Dr. [...] Jennifer Tarango DO Other Provider [phone] Heaven Michel Attending Provider Dr. Amos Floyd [...] Provider Sukhdeep MARTINEZ, Dr. Coates Nurse Practitioner [phone] BALDO DE LA CRUZ Attending Unavailable FLOYD, AMOS Primary Care Unavailable BASIM JOEL Referring Unavailable BASIM JOEL Attending Unavailable FLOYD, AMOS Primary Care Unavailable BASIM JOEL Attending Unavailable FLOYD, MAOS Primary Care Unavailable FLOYD, AMOS Primary Care Unavailable MEMO CANAS Attending Unavailable BASIM JOEL Attending Unavailable FLOYD, AMOS Primary Care Unavailable DYLON GUPTA Attending Unavailable FLOYD, AMOS Primary Care Unavailable CRISTIN, DYLON Attending Unavailable FLOYD, AMOS Primary Care Unavailable CRISTIN, DYLON Referring Unavailable FLOYD, AMOS Primary Care Unavailable MEMO CAANS Attending Unavailable SHAHBAZBENDMEMO THOMAS Admitting Unavailable DYLON GUPTA Attending Unavailable FLOYD, AMOS Primary Care Unavailable RCISTIN, DYLON Referring Unavailable BASIM JOEL Attending Unavailable [...] able Basim Shannon Attending Unavail able Estuardo, [place] Consulting Unavailable Floyd, Amos Primary Care Unavailable Edwar, Torsten Consulting Unavailable Sukhdeep, Jennifer Consulting Unavailable Basim Shannon Referring Unavail able Estuardo, [place] Consulting Unavailable Basim Shannon Attending Unavail able Floyd, Amos Primary Care Unavailable Edwar, Torsten Consulting Unavailable Sukhdeep, Jennifer Consulting Unavailable Sukhdeep Jennifer Attending Unavailable Floyd, Amos Primary Care Unavailable Basim Joel Referring Unavailable Basim Joel Attending Unavailable Floyd, Amos Primary Care Unavailable Estuardo, Woodburn Referring Unavailable Estuardo, [place]burn Attending Unavailable Floyd, Amos Primary Care Unavailable Basim Shannon Referring Unavail able Basim Shannon Attending Unavail able Estuardo, [place] Consulting Unavailable Floyd, Amos Primary Care Unavailable [...] Consulting Unavailable Sukhdeep, Jennifer Consulting Unavailable Estuardo, Woodburn Referring Unavailable Estuardo, [place] Attending Unavailable Floyd, Amos Primary Care Unavailable BERTO CRUZ Referring Unavailable SEEAUERBERTO Attending Unavailable Floyd, Amos Primary Care Unavailable DemiterTucker Attending Unavailable Floyd, Amos Primary Care Unavailable Floyd, Amos Referring Unavailable Estuardo, Jordan Attending Unavailable Floyd, Amos Primary Care Unavailable Sukhdeep, Jennifer Referring Unavailable Sukhdeep, Jennifer Attending Unavailable Floyd, Amos Primary Care Unavailable Kotsonis, Ted F Consulting Unavailable Kotsonis, [...] Unavailable Floyd, Amos Primary Care Unavailable Estuardo, Woodburn Attending Unavailable Heaven Bolton NP Attending Unavailable Floyd, Amos Primary Care Unavailable Floyd, Amos Referring Unavailable Estuardo, Woodburn Attending Unavailable Floyd, Amos Primary Care Unavailable Floyd, Amos Referring Unavailable Basim Shannon Referring Unavail able Basim Shannon Attending Unavail able Estuardo, [place] Consulting Unavailable Floyd, Amos Primary Care Unavailable Edwar, Torsten Consulting Unavailable Jennifer Tarango Consulting Unavailable Allergies Allergy Classification Reported Allergen(s) Allergy Type Date of Onset Reaction(s) Facility Penicillins (antibiotic) (3 sources) Penicillins Drug Allergy 3 [facility] Quinolones (antibiotic) (3 sources) Ciprofloxacin Drug Allergy 0 [facility] (20 sources) ciprofloxacin; Translations: [CIPROFLOXACIN] Drug Allergy 0 Rash, Other [facility] Repository (20 sources) Penicillins; Translations: [PENICILLINS] Propensity to adverse reactions (disorder) 3 Rash, Other [facility] Repository (1 source) ALLERGIES NOT ON FILE; Translations: [ALLERGIES NOT ON FILE] Propensity to adverse reactions (disorder) [facility] (20 sources) amLODIPine; Translations: [AMLODIPINE] Drug Allergy 4 [facility] Work Phone: Medications Current Medications Medication [...] on above: Take 1 capsule by mo [facility] two times a day for [...] on above: Take 400 Units by mo [facility] once daily. cyproheptadine hydrochloride 4 [...] ML pen injector Discontinued 300 mg SQ .[id number] April 02, 2020 1:00am April 04, 2020 10:48am sinus Comment on above: Inject 300 mg SQ gwen ry 2 weeks .[id number] Dupilumab (16 sources) Start: End: inject 200 [...] RELIEF) 50 mcg/actuation nasal spray Use 1 [place] in each nostril once daily. 0 07/20/2021 Discontinued Comment on above: Use 1 [place] in each nostril once daily. 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, [address] BUN/CRE Normal - [facility] Comment on above: Result Comment: Canc elled via OM: Order cancelled - Patient discharged Performed By: #### L 500.2500, L100.0100 ####[facility] [address] [place], [address] Calcium Normal 7.6-11.0 [facility] Comment on above: Result Comment: Canc elled via OM: Order cancelled - Patient discharged Performed By: #### L 500.2500, L100.0100 ####[facility] [address] [place], [address] CL Normal 98-108 [facility] Comment on above: Result Comment: Canc elled via OM: Order cancelled - Patient discharged Performed By: #### L 500.2500, L100.0100 ####[facility] [address] [place], [address] CO2 Normal 21.0-32.0 [facility] Comment on above: Result Comment: Canc elled via OM: Order cancelled - Patient discharged Performed By: #### L 500.2500, L100.0100 ####[facility] [address] [place], [address] CREAT,SERUM Normal 0.70-1.20 [facility] Comment on above: Result Comment: Canc elled via OM: Order cancelled - Patient discharged Performed By: #### L 500.2500, L100.0100 ####[facility] [address] [place], [address] eGFR Normal >60 [facility] Comment on above: Result Comment: Canc elled via OM: Order cancelled - Patient discharged Performed By: #### L 500.2500, L100.0100 ####[facility] [address] [place], [address] GAP Normal 5-15 [facility] Comment on above: Result Comment: Canc elled via OM: Order cancelled - Patient discharged Performed By: #### L 500.2500, L100.0100 ####[facility] [address] [place], [address] GLU Normal 70-99 [facility] Comment on above: Result Comment: Canc elled via OM: Order cancelled - Patient discharged Performed By: #### L 500.2500, L100.0100 ####[facility] [address] [place], [address] Potassium Normal 3.3-5.1 [facility] Comment on above: Result Comment: Canc elled via OM: Order cancelled - Patient discharged Performed By: #### L 500.2500, L100.0100 ####[facility] [address] [place], [address] Basic Metabolic Profile (BMP) Normal 133-145 [facility] Comment on above: Result Comment: Canc elled via OM: Order cancelled - Patient discharged Performed By: #### L 500.2500, L100.0100 ####[facility] [address] [place], [address] CBC W/Diff, Automatedon 11-1 Absolute Neut Normal 2.0-7.7 [facility] Comment on above: Result Comment: Canc elled via OM: Order cancelled - Patient discharged Performed By: #### L 500.2500, L100.0100 ####[facility] [address] [place], [address] HCT Normal 37-47 [facility] Comment on above: Result Comment: Canc elled via OM: Order cancelled - Patient discharged Performed By: #### L 500.2500, L100.0100 ####[facility] [address] [place], [address] HGB Normal 12.0-15.0 [facility] Comment on above: Result Comment: Canc elled via OM: Order cancelled - Patient discharged Performed By: #### L 500.2500, L100.0100 ####[facility] [address] [place], [address] MCH Normal 27.0-32.0 [facility] Comment on above: Result Comment: Canc elled via OM: Order cancelled - Patient discharged Performed By: #### L 500.2500, L100.0100 ####[facility] [address] [place], [address] MCHC Normal 32-36 [facility] Comment on above: Result Comment: Canc elled via OM: Order cancelled - Patient discharged Performed By: #### L 500.2500, L100.0100 ####[facility] [address] [place], [address] MCV Normal 81-99 [facility] Comment on above: Result Comment: Canc elled via OM: Order cancelled - Patient discharged Performed By: #### L 500.2500, L100.0100 ####[facility] [address] [place], [address] NEUT% Normal 47-70 [facility] Comment on above: Result Comment: Canc elled via OM: Order cancelled - Patient discharged Performed By: #### L 500.2500, L100.0100 ####[facility] [address] [place], [address] PLT Normal 150-450 [facility] Comment on above: Result Comment: Canc elled via OM: Order cancelled - Patient discharged Performed By: #### L 500.2500, L100.0100 ####[facility] [address] [place], [address] RBC Normal 4.2-5.4 [facility] Comment on above: Result Comment: Canc elled via OM: Order cancelled - Patient discharged Performed By: #### L 500.2500, L100.0100 ####[facility] [address] [place], [address] RDW CV Normal 11.6-14.6 [facility] Comment on above: Result Comment: Canc elled via OM: Order cancelled - Patient discharged Performed By: #### L 500.2500, L100.0100 ####[facility] [address] [place], [address] RDW SD Normal 35.1-43.9 [facility] Comment on above: Result Comment: Canc elled via OM: Order cancelled - Patient discharged Performed By: #### L 500.2500, L100.0100 ####[facility] [address] [place], [address] WBC Normal 4.4-11.0 [facility] Comment on above: Result Comment: Canc elled via OM: Order cancelled - Patient discharged Performed By: #### L 500.2500, L100.0100 ####[facility] [address] [place], [address] Basic Metabolic Profile (BMP )on 01-03-2025 BUN Normal 4-19 [facility] Comment on above: Result Comment: Canc elled via OM: Order cancelled - Patient discharged Performed By: #### L 500.2500, L100.0100 ####[facility] [address] [place], [address] BUN/CRE Normal 10-20 [facility] Comment on above: Result Comment: Canc elled via OM: Order cancelled - Patient discharged Performed By: #### L 500.2500, L100.0100 ####[facility] [address] [place], [address] Calcium Normal 7.6-11.0 [facility] Comment on above: Result Comment: Canc elled via OM: Order cancelled - Patient discharged Performed By: #### L 500.2500, L100.0100 ####[facility] [address] [place], [address] CL Normal 98-108 [facility] Comment on above: Result Comment: Canc elled via OM: Order cancelled - Patient discharged Performed By: #### L 500.2500, L100.0100 ####[facility] [address] [place], [address] CO2 Normal 21.0-32.0 [facility] Comment on above: Result Comment: Canc elled via OM: Order cancelled - Patient discharged Performed By: #### L 500.2500, L100.0100 ####[facility] [address] [place], [address] CREAT,SERUM Normal 0.70-1.20 [facility] Comment on above: Result Comment: Canc elled via OM: Order cancelled - Patient discharged Performed By: #### L 500.2500, L100.0100 ####[facility] [address] [place], [address] eGFR Normal >60 [facility] Comment on above: Result Comment: Canc elled via OM: Order cancelled - Patient discharged Performed By: #### L 500.2500, L100.0100 ####[facility] [address] [place], [address] GAP Normal 5-15 [facility] Comment on above: Result Comment: Canc elled via OM: Order cancelled - Patient discharged Performed By: #### L 500.2500, L100.0100 ####[facility] [address] [place], [address] GLU Normal 70-99 [facility] Comment on above: Result Comment: Canc elled via OM: Order cancelled - Patient discharged Performed By: #### L 500.2500, L100.0100 ####[facility] [address] [place], [address] Potassium Normal 3.3-5.1 [facility] Comment on above: Result Comment: Canc elled via OM: Order cancelled - Patient discharged Performed By: #### L 500.2500, L100.0100 ####[facility] [address] [place], [address] Basic Metabolic Profile (BMP) Normal 133-145 [facility] Comment on above: Result Comment: Canc elled via OM: Order cancelled - Patient discharged Performed By: #### L 500.2500, L100.0100 ####[facility] [address] [place], [address] CBC W/Diff, Automatedon 11-1 Absolute Neut Normal 2.0-7.7 [facility] Comment on above: Result Comment: Canc elled via OM: Order cancelled - Patient discharged Performed By: #### L 500.2500, L100.0100 ####[facility] [address] [place], [address] HCT Normal 37-47 [facility] Comment on above: Result Comment: Canc elled via OM: Order cancelled - Patient discharged Performed By: #### L 500.2500, L100.0100 ####[facility] [address] [place], [address] HGB Normal 12.0-15.0 [facility] Comment on above: Result Comment: Canc elled via OM: Order cancelled - Patient discharged Performed By: #### L 500.2500, L100.0100 ####[facility] [address] [place], [address] MCH Normal 27.0-32.0 [facility] Comment on above: Result Comment: Canc elled via OM: Order cancelled - Patient discharged Performed By: #### L 500.2500, L100.0100 ####[facility] [address] [place], [address] MCHC Normal 32-36 [facility] Comment on above: Result Comment: Canc elled via OM: Order cancelled - Patient discharged Performed By: #### L 500.2500, L100.0100 ####[facility] [address] [place], [address] MCV Normal 81-99 [facility] Comment on above: Result Comment: Canc elled via OM: Order cancelled - Patient discharged Performed By: #### L 500.2500, L100.0100 ####[facility] [address] [place], [address] NEUT% Normal 47-70 [facility] Comment on above: Result Comment: Canc elled via OM: Order cancelled - Patient discharged Performed By: #### L 500.2500, L100.0100 ####[facility] [address] [place], [address] PLT Normal 150-450 [facility] Comment on above: Result Comment: Canc elled via OM: Order cancelled - Patient discharged Performed By: #### L 500.2500, L100.0100 ####[facility] [address] [place], [address] RBC Normal 4.2-5.4 [facility] Comment on above: Result Comment: Canc elled via OM: Order cancelled - Patient discharged Performed By: #### L 500.2500, L100.0100 ####[facility] [address] [place], [address] RDW CV Normal 11.6-14.6 [facility] Comment on above: Result Comment: Canc elled via OM: Order cancelled - Patient discharged Performed By: #### L 500.2500, L100.0100 ####[facility] [address] [place], [address] RDW SD Normal 35.1-43.9 [facility] Comment on above: Result Comment: Canc elled via OM: Order cancelled - Patient discharged Performed By: #### L 500.2500, L100.0100 ####[facility] [address] [place], [address] WBC Normal 4.4-11.0 [facility] Comment on above: Result Comment: Canc elled via OM: Order cancelled - Patient discharged Performed By: #### L 500.2500, L100.0100 ####[facility] [address] [place], [address] Basic Metabolic Profile (BMP )on 01-02-2025 BUN Normal 4-19 [facility] Comment on above: Result Comment: Canc elled via OM: Order cancelled - Patient discharged Performed By: #### L 100.0100, L500.2500 ####[facility] [address] [place], [address] BUN/CRE Normal 10-20 [facility] Comment on above: Result Comment: Canc elled via OM: Order cancelled - Patient discharged Performed By: #### L 100.0100, L500.2500 ####[facility] [address] [place], [address] Calcium Normal 7.6-11.0 [facility] Comment on above: Result Comment: Canc elled via OM: Order cancelled - Patient discharged Performed By: #### L 100.0100, L500.2500 ####[facility] [address] [place], [address] CL Normal 98-108 [facility] Comment on above: Result Comment: Canc elled via OM: Order cancelled - Patient discharged Performed By: #### L 100.0100, L500.2500 ####[facility] [address] [place], [address] CO2 Normal 21.0-32.0 [facility] Comment on above: Result Comment: Canc elled via OM: Order cancelled - Patient discharged Performed By: #### L 100.0100, L500.2500 ####[facility] [address] [place], [address] CREAT,SERUM Normal 0.70-1.20 [facility] Comment on above: Result Comment: Canc elled via OM: Order cancelled - Patient discharged Performed By: #### L 100.0100, L500.2500 ####[facility] [address] [place], [address] eGFR Normal >60 [facility] Comment on above: Result Comment: Canc elled via OM: Order cancelled - Patient discharged Performed By: #### L 100.0100, L500.2500 ####[facility] [address] [place], [address] GAP Normal 5-15 [facility] Comment on above: Result Comment: Canc elled via OM: Order cancelled - Patient discharged Performed By: #### L 100.0100, L500.2500 ####[facility] [address] [place], [address] GLU Normal 70-99 [facility] Comment on above: Result Comment: Canc elled via OM: Order cancelled - Patient discharged Performed By: #### L 100.0100, L500.2500 ####[facility] [address] [place], [address] Potassium Normal 3.3-5.1 [facility] Comment on above: Result Comment: Canc elled via OM: Order cancelled - Patient discharged Performed By: #### L 100.0100, L500.2500 ####[facility] [address] [place], [address] Basic Metabolic Profile (BMP) Normal 133-145 [facility] Comment on above: Result Comment: Canc elled via OM: Order cancelled - Patient discharged Performed By: #### L 100.0100, L500.2500 ####[facility] [address] [place], [address] CBC W/Diff, Automatedon 11- Absolute Neut Normal 2.0-7.7 [facility] Comment on above: Result Comment: Canc elled via OM: Order cancelled - Patient discharged Performed By: #### L 100.0100, L500.2500 ####[facility] [address] [place], [address] HCT Normal 37-47 [facility] Comment on above: Result Comment: Canc elled via OM: Order cancelled - Patient discharged Performed By: #### L 100.0100, L500.2500 ####[facility] [address] [place], [address] HGB Normal 12.0-15.0 [facility] Comment on above: Result Comment: Canc elled via OM: Order cancelled - Patient discharged Performed By: #### L 100.0100, L500.2500 ####[facility] [address] [place], [address] MCH Normal 27.0-32.0 [facility] Comment on above: Result Comment: Canc elled via OM: Order cancelled - Patient discharged Performed By: #### L 100.0100, L500.2500 ####[facility] [address] [place], [address] MCHC Normal 32-36 [facility] Comment on above: Result Comment: Canc elled via OM: Order cancelled - Patient discharged Performed By: #### L 100.0100, L500.2500 ####[facility] [address] [place], [address] MCV Normal 81-99 [facility] Comment on above: Result Comment: Canc elled via OM: Order cancelled - Patient discharged Performed By: #### L 100.0100, L500.2500 ####[facility] [address] [place], [address] NEUT% Normal 47-70 [facility] Comment on above: Result Comment: Canc elled via OM: Order cancelled - Patient discharged Performed By: #### L 100.0100, L500.2500 ####[facility] [address] [place], [address] PLT Normal 150-450 [facility] Comment on above: Result Comment: Canc elled via OM: Order cancelled - Patient discharged Performed By: #### L 100.0100, L500.2500 ####[facility] [address] [place], [address] RBC Normal 4.2-5.4 [facility] Comment on above: Result Comment: Canc elled via OM: Order cancelled - Patient discharged Performed By: #### L 100.0100, L500.2500 ####[facility] [address] [place], [address] RDW CV Normal 11.6-14.6 [facility] Comment on above: Result Comment: Canc elled via OM: Order cancelled - Patient discharged Performed By: #### L 100.0100, L500.2500 ####[facility] [address] [place], [address] RDW SD Normal 35.1-43.9 [facility] Comment on above: Result Comment: Canc elled via OM: Order cancelled - Patient discharged Performed By: #### L 100.0100, L500.2500 ####[facility] [address] [place], [address] WBC Normal 4.4-11.0 [facility] Comment on above: Result Comment: Canc elled via OM: Order cancelled - Patient discharged Performed By: #### L 100.0100, L500.2500 ####[facility] [address] [place], [address] Basic Metabolic Profile (BMP )on 01-01-2025 BUN Normal 4-19 [facility] Comment on above: Result Comment: Canc elled via OM: Order cancelled - Patient discharged Performed By: #### L 500.2500, L100.0100 ####[facility] [address] [place], [address] BUN/CRE Normal 10-20 [facility] Comment on above: Result Comment: Canc elled via OM: Order cancelled - Patient discharged Performed By: #### L 500.2500, L100.0100 ####[facility] [address] [place], [address] Calcium Normal 7.6-11.0 [facility] Comment on above: Result Comment: Canc elled via OM: Order cancelled - Patient discharged Performed By: #### L 500.2500, L100.0100 ####[facility] [address] [place], [address] CL Normal 98-108 [facility] Comment on above: Result Comment: Canc elled via OM: Order cancelled - Patient discharged Performed By: #### L 500.2500, L100.0100 ####[facility] [address] [place], [address] CO2 Normal 21.0-32.0 [facility] Comment on above: Result Comment: Canc elled via OM: Order cancelled - Patient discharged Performed By: #### L 500.2500, L100.0100 ####[facility] [address] [place], [address] CREAT,SERUM Normal 0.70-1.20 [facility] Comment on above: Result Comment: Canc elled via OM: Order cancelled - Patient discharged Performed By: #### L 500.2500, L100.0100 ####[facility] [address] [place], [address] eGFR Normal >60 [facility] Comment on above: Result Comment: Canc elled via OM: Order cancelled - Patient discharged Performed By: #### L 500.2500, L100.0100 ####[facility] [address] [place], [address] GAP Normal 5-15 [facility] Comment on above: Result Comment: Canc elled via OM: Order cancelled - Patient discharged Performed By: #### L 500.2500, L100.0100 ####[facility] [address] [place], [address] GLU Normal 70-99 [facility] Comment on above: Result Comment: Canc elled via OM: Order cancelled - Patient discharged Performed By: #### L 500.2500, L100.0100 ####[facility] [address] [place], [address] Potassium Normal 3.3-5.1 [facility] Comment on above: Result Comment: Canc elled via OM: Order cancelled - Patient discharged Performed By: #### L 500.2500, L100.0100 ####[facility] [address] [place], [address] Basic Metabolic Profile (BMP) Normal 133-145 [facility] Comment on above: Result Comment: Canc elled via OM: Order cancelled - Patient discharged Performed By: #### L 500.2500, L100.0100 ####[facility] [address] [place], [address] CBC W/Diff, Automatedon 11- Absolute Neut Normal 2.0-7.7 [facility] Comment on above: Result Comment: Canc elled via OM: Order cancelled - Patient discharged Performed By: #### L 500.2500, L100.0100 ####[facility] [address] [place], [address] HCT Normal 37-47 [facility] Comment on above: Result Comment: Canc elled via OM: Order cancelled - Patient discharged Performed By: #### L 500.2500, L100.0100 ####[facility] [address] [place], [address] HGB Normal 12.0-15.0 [facility] Comment on above: Result Comment: Canc elled via OM: Order cancelled - Patient discharged Performed By: #### L 500.2500, L100.0100 ####[facility] [address] [place], [address] MCH Normal 27.0-32.0 [facility] Comment on above: Result Comment: Canc elled via OM: Order cancelled - Patient discharged Performed By: #### L 500.2500, L100.0100 ####[facility] [address] [place], [address] MCHC Normal 32-36 [facility] Comment on above: Result Comment: Canc elled via OM: Order cancelled - Patient discharged Performed By: #### L 500.2500, L100.0100 ####[facility] [address] [place], [address] MCV Normal 81-99 [facility] Comment on above: Result Comment: Canc elled via OM: Order cancelled - Patient discharged Performed By: #### L 500.2500, L100.0100 ####[facility] [address] [place], [address] NEUT% Normal 47-70 [facility] Comment on above: Result Comment: Canc elled via OM: Order cancelled - Patient discharged Performed By: #### L 500.2500, L100.0100 ####[facility] [address] [place], [address] PLT Normal 150-450 [facility] Comment on above: Result Comment: Canc elled via OM: Order cancelled - Patient discharged Performed By: #### L 500.2500, L100.0100 ####[facility] [address] [place], [address] RBC Normal 4.2-5.4 [facility] Comment on above: Result Comment: Canc elled via OM: Order cancelled - Patient discharged Performed By: #### L 500.2500, L100.0100 ####[facility] [address] [place], [address] RDW CV Normal 11.6-14.6 [facility] Comment on above: Result Comment: Canc elled via OM: Order cancelled - Patient discharged Performed By: #### L 500.2500, L100.0100 ####[facility] [address] [place], [address] RDW SD Normal 35.1-43.9 [facility] Comment on above: Result Comment: Canc elled via OM: Order cancelled - Patient discharged Performed By: #### L 500.2500, L100.0100 ####[facility] [address] [place], [address] WBC Normal 4.4-11.0 [facility] Comment on above: Result Comment: Canc elled via OM: Order cancelled - Patient discharged Performed By: #### L 500.2500, L100.0100 ####[facility] [address] [place], [address] Basic Metabolic Profile (BMP )on 12-31-2024 BUN Normal 4-19 [facility] Comment on above: Result Comment: Canc elled via OM: Order cancelled - Patient discharged Performed By: #### L 100.0100, L500.2500 ####[facility] [address] [place], [address] BUN/CRE Normal 10-20 [facility] Comment on above: Result Comment: Canc elled via OM: Order cancelled - Patient discharged Performed By: #### L 100.0100, L500.2500 ####[facility] [address] [place], [address] Calcium Normal 7.6-11.0 [facility] Comment on above: Result Comment: Canc elled via OM: Order cancelled - Patient discharged Performed By: #### L 100.0100, L500.2500 ####[facility] [address] [place], [address] CL Normal 98-108 [facility] Comment on above: Result Comment: Canc elled via OM: Order cancelled - Patient discharged Performed By: #### L 100.0100, L500.2500 ####[facility] [address] [place], [address] CO2 Normal 21.0-32.0 [facility] Comment on above: Result Comment: Canc elled via OM: Order cancelled - Patient discharged Performed By: #### L 100.0100, L500.2500 ####[facility] [address] [place], [address] CREAT,SERUM Normal 0.70-1.20 [facility] Comment on above: Result Comment: Canc elled via OM: Order cancelled - Patient discharged Performed By: #### L 100.0100, L500.2500 ####[facility] [address] [place], [address] eGFR Normal >60 [facility] Comment on above: Result Comment: Canc elled via OM: Order cancelled - Patient discharged Performed By: #### L 100.0100, L500.2500 ####[facility] [address] [place], [address] GAP Normal 5-15 [facility] Comment on above: Result Comment: Canc elled via OM: Order cancelled - Patient discharged Performed By: #### L 100.0100, L500.2500 ####[facility] [address] [place], [address] GLU Normal 70-99 [facility] Comment on above: Result Comment: Canc elled via OM: Order cancelled - Patient discharged Performed By: #### L 100.0100, L500.2500 ####[facility] [address] [place], [address] Potassium Normal 3.3-5.1 [facility] Comment on above: Result Comment: Canc elled via OM: Order cancelled - Patient discharged Performed By: #### L 100.0100, L500.2500 ####[facility] [address] [place], [address] Basic Metabolic Profile (BMP) Normal 133-145 [facility] Comment on above: Result Comment: Canc elled via OM: Order cancelled - Patient discharged Performed By: #### L 100.0100, L500.2500 ####[facility] [address] [place], [address] CBC W/Diff, Automatedon 11-1 Absolute Neut Normal 2.0-7.7 [facility] Comment on above: Result Comment: Canc elled via OM: Order cancelled - Patient discharged Performed By: #### L 100.0100, L500.2500 ####[facility] [address] [place], [address] HCT Normal 37-47 [facility] Comment on above: Result Comment: Canc elled via OM: Order cancelled - Patient discharged Performed By: #### L 100.0100, L500.2500 ####[facility] [address] [place], [address] HGB Normal 12.0-15.0 [facility] Comment on above: Result Comment: Canc elled via OM: Order cancelled - Patient discharged Performed By: #### L 100.0100, L500.2500 ####[facility] [address] [place], [address] MCH Normal 27.0-32.0 [facility] Comment on above: Result Comment: Canc elled via OM: Order cancelled - Patient discharged Performed By: #### L 100.0100, L500.2500 ####[facility] [address] [place], [address] MCHC Normal 32-36 [facility] Comment on above: Result Comment: Canc elled via OM: Order cancelled - Patient discharged Performed By: #### L 100.0100, L500.2500 ####[facility] [address] [place], [address] MCV Normal 81-99 [facility] Comment on above: Result Comment: Canc elled via OM: Order cancelled - Patient discharged Performed By: #### L 100.0100, L500.2500 ####[facility] [address] [place], [address] NEUT% Normal 47-70 [facility] Comment on above: Result Comment: Canc elled via OM: Order cancelled - Patient discharged Performed By: #### L 100.0100, L500.2500 ####[facility] [address] [place], [address] PLT Normal 150-450 [facility] Comment on above: Result Comment: Canc elled via OM: Order cancelled - Patient discharged Performed By: #### L 100.0100, L500.2500 ####[facility] [address] [place], [address] RBC Normal 4.2-5.4 [facility] Comment on above: Result Comment: Canc elled via OM: Order cancelled - Patient discharged Performed By: #### L 100.0100, L500.2500 ####[facility] [address] [place], [address] RDW CV Normal 11.6-14.6 [facility] Comment on above: Result Comment: Canc elled via OM: Order cancelled - Patient discharged Performed By: #### L 100.0100, L500.2500 ####[facility] [address] [place], [address] RDW SD Normal 35.1-43.9 [facility] Comment on above: Result Comment: Canc elled via OM: Order cancelled - Patient discharged Performed By: #### L 100.0100, L500.2500 ####[facility] [address] [place], [address] WBC Normal 4.4-11.0 [facility] Comment on above: Result Comment: Canc elled via OM: Order cancelled - Patient discharged Performed By: #### L 100.0100, L500.2500 ####[facility] [address] [place], [address] Basic Metabolic Profile (BMP )on 12-30-2024 BUN Normal 4-19 [facility] Comment on above: Result Comment: Canc elled via OM: Order cancelled - Patient discharged Performed By: #### L 100.0100, L500.2500 ####[facility] [address] [place], [address] BUN/CRE Normal 10-20 [facility] Comment on above: Result Comment: Canc elled via OM: Order cancelled - Patient discharged Performed By: #### L 100.0100, L500.2500 ####[facility] [address] [place], [address] Calcium Normal 7.6-11.0 [facility] Comment on above: Result Comment: Canc elled via OM: Order cancelled - Patient discharged Performed By: #### L 100.0100, L500.2500 ####[facility] [address] [place], [address] CL Normal 98-108 [facility] Comment on above: Result Comment: Canc elled via OM: Order cancelled - Patient discharged Performed By: #### L 100.0100, L500.2500 ####[facility] [address] [place], [address] CO2 Normal 21.0-32.0 [facility] Comment on above: Result Comment: Canc elled via OM: Order cancelled - Patient discharged Performed By: #### L 100.0100, L500.2500 ####[facility] [address] [place], [address] CREAT,SERUM Normal 0.70-1.20 [facility] Comment on above: Result Comment: Canc elled via OM: Order cancelled - Patient discharged Performed By: #### L 100.0100, L500.2500 ####[facility] [address] [place], [address] eGFR Normal >60 [facility] Comment on above: Result Comment: Canc elled via OM: Order cancelled - Patient discharged Performed By: #### L 100.0100, L500.2500 ####[facility] [address] [place], [address] GAP Normal 5-15 [facility] Comment on above: Result Comment: Canc elled via OM: Order cancelled - Patient discharged Performed By: #### L 100.0100, L500.2500 ####[facility] [address] [place], [address] GLU Normal 70-99 [facility] Comment on above: Result Comment: Canc elled via OM: Order cancelled - Patient discharged Performed By: #### L 100.0100, L500.2500 ####[facility] [address] [place], [address] Potassium Normal 3.3-5.1 [facility] Comment on above: Result Comment: Canc elled via OM: Order cancelled - Patient discharged Performed By: #### L 100.0100, L500.2500 ####[facility] [address] [place], [address] Basic Metabolic Profile (BMP) Normal 133-145 [facility] Comment on above: Result Comment: Canc elled via OM: Order cancelled - Patient discharged Performed By: #### L 100.0100, L500.2500 ####[facility] [address] [place], [address] CBC W/Diff, Automatedon 11-1 0-2024 Absolute Neut Normal 2.0-7.7 [facility] Comment on above: Result Comment: Canc elled via OM: Order cancelled - Patient discharged Performed By: #### L 100.0100, L500.2500 ####[facility] [address] [place], [address] HCT Normal 37-47 [facility] Comment on above: Result Comment: Canc elled via OM: Order cancelled - Patient discharged Performed By: #### L 100.0100, L500.2500 ####[facility] [address] [place], [address] HGB Normal 12.0-15.0 [facility] Comment on above: Result Comment: Canc elled via OM: Order cancelled - Patient discharged Performed By: #### L 100.0100, L500.2500 ####[facility] [address] [place], [address] MCH Normal 27.0-32.0 [facility] Comment on above: Result Comment: Canc elled via OM: Order cancelled - Patient discharged Performed By: #### L 100.0100, L500.2500 ####[facility] [address] [place], [address] MCHC Normal 32-36 [facility] Comment on above: Result Comment: Canc elled via OM: Order cancelled - Patient discharged Performed By: #### L 100.0100, L500.2500 ####[facility] [address] [place], [address] MCV Normal 81-99 [facility] Comment on above: Result Comment: Canc elled via OM: Order cancelled - Patient discharged Performed By: #### L 100.0100, L500.2500 ####[facility] [address] [place], [address] NEUT% Normal 47-70 [facility] Comment on above: Result Comment: Canc elled via OM: Order cancelled - Patient discharged Performed By: #### L 100.0100, L500.2500 ####[facility] [address] [place], [address] PLT Normal 150-450 [facility] Comment on above: Result Comment: Canc elled via OM: Order cancelled - Patient discharged Performed By: #### L 100.0100, L500.2500 ####[facility] [address] [place], [address] RBC Normal 4.2-5.4 [facility] Comment on above: Result Comment: Canc elled via OM: Order cancelled - Patient discharged Performed By: #### L 100.0100, L500.2500 ####[facility] [address] [place], [address] RDW CV Normal 11.6-14.6 [facility] Comment on above: Result Comment: Canc elled via OM: Order cancelled - Patient discharged Performed By: #### L 100.0100, L500.2500 ####[facility] [address] [place], [address] RDW SD Normal 35.1-43.9 [facility] Comment on above: Result Comment: Canc elled via OM: Order cancelled - Patient discharged Performed By: #### L 100.0100, L500.2500 ####[facility] [address] [place], [address] WBC Normal 4.4-11.0 [facility] Comment on above: Result Comment: Canc elled via OM: Order cancelled - Patient discharged Performed By: #### L 100.0100, L500.2500 ####[facility] [address] [place], [address] Basic Metabolic Profile (BMP )on 11-09-2025 BUN Normal 4-19 [facility] Comment on above: Result Comment: Canc elled via OM: Order cancelled - Patient discharged Performed By: #### L 500.2500, L100.0100 ####[facility] [address] [place], [address] BUN/CRE Normal 10-20 [facility] Comment on above: Result Comment: Canc elled via OM: Order cancelled - Patient discharged Performed By: #### L 500.2500, L100.0100 ####[facility] [address] [place], [address] Calcium Normal 7.6-11.0 [facility] Comment on above: Result Comment: Canc elled via OM: Order cancelled - Patient discharged Performed By: #### L 500.2500, L100.0100 ####[facility] [address] [place], [address] CL Normal 98-108 [facility] Comment on above: Result Comment: Canc elled via OM: Order cancelled - Patient discharged Performed By: #### L 500.2500, L100.0100 ####[facility] [address] [place], [address] CO2 Normal 21.0-32.0 [facility] Comment on above: Result Comment: Canc elled via OM: Order cancelled - Patient discharged Performed By: #### L 500.2500, L100.0100 ####[facility] [address] [place], [address] CREAT,SERUM Normal 0.70-1.20 [facility] Comment on above: Result Comment: Canc elled via OM: Order cancelled - Patient discharged Performed By: #### L 500.2500, L100.0100 ####[facility] [address] [place], [address] eGFR Normal >60 [facility] Comment on above: Result Comment: Canc elled via OM: Order cancelled - Patient discharged Performed By: #### L 500.2500, L100.0100 ####[facility] [address] [place], [address] GAP Normal 5-15 [facility] Comment on above: Result Comment: Canc elled via OM: Order cancelled - Patient discharged Performed By: #### L 500.2500, L100.0100 ####[facility] [address] [place], [address] GLU Normal 70-99 [facility] Comment on above: Result Comment: Canc elled via OM: Order cancelled - Patient discharged Performed By: #### L 500.2500, L100.0100 ####[facility] [address] [place], [address] Potassium Normal 3.3-5.1 [facility] Comment on above: Result Comment: Canc elled via OM: Order cancelled - Patient discharged Performed By: #### L 500.2500, L100.0100 ####[facility] [address] [place], [address] Basic Metabolic Profile (BMP) Normal 133-145 [facility] Comment on above: Result Comment: Canc elled via OM: Order cancelled - Patient discharged Performed By: #### L 500.2500, L100.0100 ####[facility] [address] [place], [address] CBC W/Diff, Automatedon 11-0 Absolute Neut Normal 2.0-7.7 [facility] Comment on above: Result Comment: Canc elled via OM: Order cancelled - Patient discharged Performed By: #### L 500.2500, L100.0100 ####[facility] [address] [place], [address] HCT Normal 37-47 [facility] Comment on above: Result Comment: Canc elled via OM: Order cancelled - Patient discharged Performed By: #### L 500.2500, L100.0100 ####[facility] [address] [place], [address] HGB Normal 12.0-15.0 [facility] Comment on above: Result Comment: Canc elled via OM: Order cancelled - Patient discharged Performed By: #### L 500.2500, L100.0100 ####[facility] [address] [place], [address] MCH Normal 27.0-32.0 [facility] Comment on above: Result Comment: Canc elled via OM: Order cancelled - Patient discharged Performed By: #### L 500.2500, L100.0100 ####[facility] [facility] [address] [place], [address] MCHC Normal 32-36 [facility] Comment on above: Result Comment: Canc elled via OM: Order cancelled - Patient discharged Performed By: #### L 500.2500, L100.0100 ####[facility] [address] [place], [address] MCV Normal 81-99 [facility] Comment on above: Result Comment: Canc elled via OM: Order cancelled - Patient discharged Performed By: #### L 500.2500, L100.0100 ####[facility] [address] [place], [address] NEUT% Normal 47-70 [facility] Comment on above: Result Comment: Canc elled via OM: Order cancelled - Patient discharged Performed By: #### L 500.2500, L100.0100 ####[facility] [address] [place], [address] PLT Normal 150-450 [facility] Comment on above: Result Comment: Canc elled via OM: Order cancelled - Patient discharged Performed By: #### L 500.2500, L100.0100 ####[facility] [address] [place], [address] RBC Normal 4.2-5.4 [facility] Comment on above: Result Comment: Canc elled via OM: Order cancelled - Patient discharged Performed By: #### L 500.2500, L100.0100 ####[facility] [address] [place], [address] RDW CV Normal 11.6-14.6 [facility] Comment on above: Result Comment: Canc elled via OM: Order cancelled - Patient discharged Performed By: #### L 500.2500, L100.0100 ####[facility] [address] [place], [address] RDW SD Normal 35.1-43.9 [facility] Comment on above: Result Comment: Canc elled via OM: Order cancelled - Patient discharged Performed By: #### L 500.2500, L100.0100 ####[facility] [address] [place], [address] WBC Normal 4.4-11.0 [facility] Comment on above: Result Comment: Canc elled via OM: Order cancelled - Patient discharged Performed By: #### L 500.2500, L100.0100 ####[facility] [address] [place], [address] Basic Metabolic Profile (BMP )on 12-28-2024 BUN/CRE 35.9 RATIO High 10-20 [facility] Comment on above: Performed By: #### L 100.0100, L500.2500 ####[facility] [address] [place], [address] Calcium [Mass/Vol] 8.7 mg/dL Normal 7.6-11.0 [facility] Comment on above: Performed By: #### L 100.0100, L500.2500 ####[facility] [address] [place], [address] Chloride [Moles/Vol] 108 mmol/L Normal 98-108 [facility] Comment on above: Performed By: #### L 100.0100, L500.2500 ####[facility] [address] [place], [address] CO2 [Moles/Vol] 19.8 mmol/L Low 21.0-32.0 [facility] Comment on above: Performed By: #### L 100.0100, L500.2500 ####[facility] [address] [place], [address] Creatinine [Mass/Vol] 1.53 mg/dL High 0.70-1.20 [facility] Comment on above: Performed By: #### L 100.0100, L500.2500 ####[facility] [address] [place], [address] ECRCL 25.61 ml/min Low 50-250 [facility] Comment on above: Performed By: #### L 100.0100, L500.2500 ####[facility] [address] [place], [address] GAP 15 Normal 5-15 [facility] Comment on above: Performed By: #### L 100.0100, L500.2500 ####[facility] [address] [place], [address] GFR/1.73 sq M.predicted among non-blacks MDRD (S/P/Bld) [Vol rate/Area] 34 mL/min/{1.73_m2} Low >60 [facility] Comment on above: Result Comment: mL/m in/1.73m2 CKD-EPI Creatinine Equation (2020) Performed By: #### L 100.0100, L500.2500 ####[facility] [address] [place], [address] Glucose [Mass/Vol] 104 mg/dL High 70-99 [facility] Comment on above: Performed By: #### L 100.0100, L500.2500 ####[facility] [address] [place], [address] Potassium [Moles/Vol] 3.6 mmol/L Normal 3.3-5.1 [facility] Comment on above: Performed By: #### L 100.0100, L500.2500 ####[facility] [address] [place], [address] Sodium [Moles/Vol] 142 mmol/L Normal 133-145 [facility] Comment on above: Performed By: #### L 100.0100, L500.2500 ####[facility] [address] [place], [address] Urea nitrogen [Mass/Vol] 55 mg/dL High 4-19 [facility] Comment on above: Performed By: #### L 100.0100, L500.2500 ####[facility] [address] [place], [address] CBC W/Diff, Automatedon 11-0 8-2024 Absolute Lymph 1.35 X10 3/uL Normal 0.83-4.51 [facility] Comment on above: Performed By: #### L 100.0100, L500.2500 ####[facility] [address] [place], [address] Absolute Neut 7.6 X10 3/uL Normal 2.0-7.7 [facility] Comment on above: Performed By: #### L 100.0100, L500.2500 ####[facility] [address] [place], [address] Basophils/100 WBC (Bld) 0.3 % Normal 0-1 [facility] Comment on above: Performed By: #### L 100.0100, L500.2500 ####[facility] [address] [place], [address] Eosinophils/100 WBC (Bld) 0.7 % Normal 0-5 [facility] Comment on above: Performed By: #### L 100.0100, L500.2500 ####[facility] [address] [place], [address] Erythrocyte distribution width (RBC) [Ratio] 16.2 % High 11.6-14.6 [facility] Comment on above: Performed By: #### L 100.0100, L500.2500 ####[facility] [address] [place], [address] Hematocrit (Bld) [Volume fraction] 44.8 % Normal 37-47 [facility] Comment on above: Performed By: #### L 100.0100, L500.2500 ####[facility] [address] [place], [address] Hemoglobin (Bld) [Mass/Vol] 14.6 g/dL Normal 12.0-15.0 [facility] Comment on above: Performed By: #### L 100.0100, L500.2500 ####[facility] [address] [place], [address] IG% 0.500 Normal 0.0-0.9 [facility] Comment on above: Result Comment: IG% - Immature Granulocytes (promyelocytes, myelocytes andmetamyelocytes) > 1% indicates that a LEFT SHIFT is Present. Performed By: #### L 100.0100, L500.2500 ####[facility] [address] [place], [address] Lymphocytes/100 WBC (Bld) 13.4 % Low 19-41 [facility] Comment on above: Performed By: #### L 100.0100, L500.2500 ####[facility] [address] [place], [address] MCH (RBC) [Entitic mass] 28.2 pg Normal 27.0-32.0 [facility] Comment on above: Performed By: #### L 100.0100, L500.2500 ####[facility] [address] [place], [address] MCHC (RBC) [Mass/Vol] 32.6 g/dL Normal 32-36 [facility] Comment on above: Performed By: #### L 100.0100, L500.2500 ####[facility] [address] [place], [address] MCV (RBC) [Entitic vol] 86.7 fL Normal 81-99 [facility] Comment on above: Performed By: #### L 100.0100, L500.2500 ####[facility] [address] [place], [address] Monocytes/100 WBC (Bld) 9.7 % Normal 0-10 [facility] Comment on above: Performed By: #### L 100.0100, L500.2500 ####[facility] [address] [place], [address] Neutrophils/100 WBC (Bld) 75.4 % High 47-70 [facility] Comment on above: Performed By: #### L 100.0100, L500.2500 ####[facility] [address] [place], [address] Nucleated RBC (Bld) [#/Vol] 0 10*3/uL Normal 0-5 [facility] Comment on above: Performed By: #### L 100.0100, L500.2500 ####[facility] [address] [place], [address] Platelet mean volume (Bld) [Entitic vol] 12.1 fL High 6.2-12.0 [facility] Comment on above: Performed By: #### L 100.0100, L500.2500 ####[facility] [address] [place], [address] Platelets (Bld) [#/Vol] 129 10*3/uL Low 150-450 [facility] Comment on above: Performed By: #### L 100.0100, L500.2500 ####[facility] [address] [place], [address] RBC (Bld) [#/Vol] 5.17 10*6/uL Normal 4.2-5.4 [facility] Comment on above: Performed By: #### L 100.0100, L500.2500 ####[facility] [address] [place], [address] RDW SD 50.1 fl High 35.1-43.9 [facility] Comment on above: Performed By: #### L 100.0100, L500.2500 ####[facility] [address] [place], [address] WBC (Bld) [#/Vol] 10.1 10*3/uL Normal 4.4-11.0 [facility] Comment on above: Performed By: #### L 100.0100, L500.2500 ####[facility] [address] [place], [address] Discharge Instructionon 11-0 Discharge Instruction Normal [facility] Magnesiumon 12-28-2024 Magnesium [Mass/Vol] 2.1 mg/dL Normal 1.5-2.2 [facility] Comment on above: Performed By: #### L 501.5200, L501.2300 ####[facility] [address] [place], [address] Phosphoruson 12-28-2024 Phosphate [Mass/Vol] 3.2 mg/dL Normal 2.7-4.5 [facility] Comment on above: Performed By: #### L 501.5200, L501.2300 ####[facility] [address] [place], [address] Basic Metabolic Profile (BMP )on 12-27-2024 BUN/CRE 38.6 RATIO High 10-20 [facility] Comment on above: Performed By: #### L 100.0100, L500.2500 ####[facility] [address] [place], [address] Calcium [Mass/Vol] 8.8 mg/dL Normal 7.6-11.0 [facility] Comment on above: Performed By: #### L 100.0100, L500.2500 ####[facility] [address] [place], [address] Chloride [Moles/Vol] 112 mmol/L High 98-108 [facility] Comment on above: Performed By: #### L 100.0100, L500.2500 ####[facility] [address] [place], [address] CO2 [Moles/Vol] 17.4 mmol/L Low 21.0-32.0 [facility] Comment on above: Performed By: #### L 100.0100, L500.2500 ####[facility] [address] [place], [address] Creatinine [Mass/Vol] 1.72 mg/dL High 0.70-1.20 [facility] Comment on above: Performed By: #### L 100.0100, L500.2500 ####[facility] [address] [place], [address] ECRCL 23.25 ml/min Low 50-250 [facility] Comment on above: Performed By: #### L 100.0100, L500.2500 ####[facility] [address] [place], [address] GAP 14 Normal 5-15 [facility] Comment on above: Performed By: #### L 100.0100, L500.2500 ####[facility] [address] [place], [address] GFR/1.73 sq M.predicted among non-blacks MDRD (S/P/Bld) [Vol rate/Area] 30 mL/min/{1.73_m2} Low >60 [facility] Comment on above: Result Comment: mL/m in/1.73m2 CKD-EPI Creatinine Equation (2020) Performed By: #### L 100.0100, L500.2500 ####[facility] [address] [place], [address] Glucose [Mass/Vol] 171 mg/dL High 70-99 [facility] Comment on above: Performed By: #### L 100.0100, L500.2500 ####[facility] [address] [place], [address] Potassium [Moles/Vol] 4.1 mmol/L Normal 3.3-5.1 [facility] Comment on above: Performed By: #### L 100.0100, L500.2500 ####[facility] [address] [place], [address] Sodium [Moles/Vol] 144 mmol/L Normal 133-145 [facility] Comment on above: Performed By: #### L 100.0100, L500.2500 ####[facility] [address] [place], [address] Urea nitrogen [Mass/Vol] 66 mg/dL High 4-19 [facility] Comment on above: Performed By: #### L 100.0100, L500.2500 ####[facility] [address] [place], [address] CBC W/Diff, Automatedon 11-0 Absolute Lymph 2.44 X10 3/uL Normal 0.83-4.51 [facility] Comment on above: Performed By: #### L 100.0100, L500.2500 ####[facility] [address] [place], [address] Absolute Neut 5.6 X10 3/uL Normal 2.0-7.7 [facility] Comment on above: Performed By: #### L 100.0100, L500.2500 ####[facility] [address] [place], [address] Basophils/100 WBC (Bld) 0.7 % Normal 0-1 [facility] Comment on above: Performed By: #### L 100.0100, L500.2500 ####[facility] [address] [place], [address] Eosinophils/100 WBC (Bld) 1.1 % Normal 0-5 [facility] Comment on above: Performed By: #### L 100.0100, L500.2500 ####[facility] [address] [place], [address] Erythrocyte distribution width (RBC) [Ratio] 16.1 % High 11.6-14.6 [facility] Comment on above: Performed By: #### L 100.0100, L500.2500 ####[facility] [address] [place], [address] Hematocrit (Bld) [Volume fraction] 45.1 % Normal 37-47 [facility] Comment on above: Performed By: #### L 100.0100, L500.2500 ####[facility] [address] [place], [address] Hemoglobin (Bld) [Mass/Vol] 14.4 g/dL Normal 12.0-15.0 [facility] Comment on above: Performed By: #### L 100.0100, L500.2500 ####[facility] [address] [place], [address] IG% 0.700 Normal 0.0-0.9 [facility] Comment on above: Result Comment: IG% - Immature Granulocytes (promyelocytes, myelocytes andmetamyelocytes) > 1% indicates that a LEFT SHIFT is Present. Performed By: #### L 100.0100, L500.2500 ####[facility] [address] [place], [address] Lymphocytes/100 WBC (Bld) 25.9 % Normal 19-41 [facility] Comment on above: Performed By: #### L 100.0100, L500.2500 ####[facility] [address] [place], [address] MCH (RBC) [Entitic mass] 28.4 pg Normal 27.0-32.0 [facility] Comment on above: Performed By: #### L 100.0100, L500.2500 ####[facility] [address] [place], [address] MCHC (RBC) [Mass/Vol] 31.9 g/dL Low 32-36 [facility] Comment on above: Performed By: #### L 100.0100, L500.2500 ####[facility] [address] [place], [address] MCV (RBC) [Entitic vol] 89.0 fL Normal 81-99 [facility] Comment on above: Performed By: #### L 100.0100, L500.2500 ####[facility] [address] [place], [address] Monocytes/100 WBC (Bld) 12.3 % High 0-10 [facility] Comment on above: Performed By: #### L 100.0100, L500.2500 ####[facility] [address] [place], [address] Neutrophils/100 WBC (Bld) 59.3 % Normal 47-70 [facility] Comment on above: Performed By: #### L 100.0100, L500.2500 ####[facility] [address] [place], [address] Nucleated RBC (Bld) [#/Vol] 0.2 10*3/uL Normal 0-5 [facility] Comment on above: Performed By: #### L 100.0100, L500.2500 ####[facility] [address] [place], [address] Platelet mean volume (Bld) [Entitic vol] 13.0 fL High 6.2-12.0 [facility] Comment on above: Performed By: #### L 100.0100, L500.2500 ####[facility] [address] [place], [address] Platelets (Bld) [#/Vol] 123 10*3/uL Low 150-450 [facility] Comment on above: Performed By: #### L 100.0100, L500.2500 ####[facility] [address] [place], [address] RBC (Bld) [#/Vol] 5.07 10*6/uL Normal 4.2-5.4 [facility] Comment on above: Performed By: #### L 100.0100, L500.2500 ####[facility] [address] [place], [address] RDW SD 51.8 fl High 35.1-43.9 [facility] Comment on above: Performed By: #### L 100.0100, L500.2500 ####[facility] [address] [place], [address] WBC (Bld) [#/Vol] 9.4 10*3/uL Normal 4.4-11.0 [facility] Comment on above: Performed By: #### L 100.0100, L500.2500 ####[facility] [address] [place], [address] Absolute Lymph 1.77 X10 3/uL Normal 0.83-4.51 [facility] Comment on above: Performed By: #### L 500.4050, L100.0100 ####[facility] [address] [place], [address] Absolute Neut 5.9 X10 3/uL Normal 2.0-7.7 [facility] Comment on above: Performed By: #### L 500.4050, L100.0100 ####[facility] [address] [place], [address] Basophils/100 WBC (Bld) 0.8 % Normal 0-1 [facility] Comment on above: Performed By: #### L 500.4050, L100.0100 ####[facility] [address] [place], [address] Eosinophils/100 WBC (Bld) 0.7 % Normal 0-5 [facility] Comment on above: Performed By: #### L 500.4050, L100.0100 ####[facility] [address] [place], [address] Erythrocyte distribution width (RBC) [Ratio] 16.0 % High 11.6-14.6 [facility] Comment on above: Performed By: #### L 500.4050, L100.0100 ####[facility] [address] [place], [address] Hematocrit (Bld) [Volume fraction] 45.7 % Normal 37-47 [facility] Comment on above: Performed By: #### L 500.4050, L100.0100 ####[facility] [address] [place], [address] Hemoglobin (Bld) [Mass/Vol] 14.4 g/dL Normal 12.0-15.0 [facility] Comment on above: Performed By: #### L 500.4050, L100.0100 ####[facility] [address] [place], [address] IG% 0.600 Normal 0.0-0.9 [facility] Comment on above: Result Comment: IG% - Immature Granulocytes (promyelocytes, myelocytes andmetamyelocytes) > 1% indicates that a LEFT SHIFT is Present. Performed By: #### L 500.4050, L100.0100 ####[facility] [address] [place], [address] Lymphocytes/100 WBC (Bld) 19.8 % Normal 19-41 [facility] Comment on above: Performed By: #### L 500.4050, L100.0100 ####[facility] [address] [place], [address] MCH (RBC) [Entitic mass] 28.2 pg Normal 27.0-32.0 [facility] Comment on above: Performed By: #### L 500.4050, L100.0100 ####[facility] [address] [place], [address] MCHC (RBC) [Mass/Vol] 31.5 g/dL Low 32-36 [facility] Comment on above: Performed By: #### L 500.4050, L100.0100 ####[facility] [address] [place], [address] MCV (RBC) [Entitic vol] 89.6 fL Normal 81-99 [facility] Comment on above: Performed By: #### L 500.4050, L100.0100 ####[facility] [address] [place], [address] Monocytes/100 WBC (Bld) 12.1 % High 0-10 [facility] Comment on above: Performed By: #### L 500.4050, L100.0100 ####[facility] [address] [place], [address] Neutrophils/100 WBC (Bld) 66.0 % Normal 47-70 [facility] Comment on above: Performed By: #### L 500.4050, L100.0100 ####[facility] [address] [place], [address] Nucleated RBC (Bld) [#/Vol] 0 10*3/uL Normal 0-5 [facility] Comment on above: Performed By: #### L 500.4050, L100.0100 ####[facility] [address] [place], [address] Platelet mean volume (Bld) [Entitic vol] 12.3 fL High 6.2-12.0 [facility] Comment on above: Performed By: #### L 500.4050, L100.0100 ####[facility] [address] [place], [address] Platelets (Bld) [#/Vol] 141 10*3/uL Low 150-450 [facility] Comment on above: Performed By: #### L 500.4050, L100.0100 ####[facility] [address] [place], [address] RBC (Bld) [#/Vol] 5.10 10*6/uL Normal 4.2-5.4 [facility] Comment on above: Performed By: #### L 500.4050, L100.0100 ####[facility] [address] [place], [address] RDW SD 51.9 fl High 35.1-43.9 [facility] Comment on above: Performed By: #### L 500.4050, L100.0100 ####[facility] [address] [place], [address] WBC (Bld) [#/Vol] 9.0 10*3/uL Normal 4.4-11.0 [facility] Comment on above: Performed By: #### L 500.4050, L100.0100 ####[facility] [address] [place], [address] Chest PA and Lateralon 12-27 Chest PA and Lateral Normal [facility] Comprehensive Metabolic Prof ilon 12-27-2024 Albumin [Mass/Vol] 3.7 g/dL Normal 3.4-4.8 [facility] Comment on above: Performed By: #### L 500.4050, L100.0100 ####[facility] [address] [place], [address] Albumin/Globulin [Mass ratio] 2.1 {ratio} Normal 0.9-2.4 [facility] Comment on above: Performed By: #### L 500.4050, L100.0100 ####[facility] [address] [place], [address] ALK PHOS 92 U/L Normal 35-104 [facility] Comment on above: Performed By: #### L 500.4050, L100.0100 ####[facility] [address] [place], [address] ALT [Catalytic activity/Vol] 34 U/L Normal <=34 [facility] Comment on above: Performed By: #### L 500.4050, L100.0100 ####[facility] [address] [place], [address] AST [Catalytic activity/Vol] 25 U/L Normal <=31 [facility] Comment on above: Result Comment: Hemo lysis present, Results??could be affected.?? Performed By: #### L 500.4050, L100.0100 ####[facility] [address] [place], [address] Bilirubin [Mass/Vol] 1.37 mg/dL High 0.00-1.30 [facility] Comment on above: Performed By: #### L 500.4050, L100.0100 ####[facility] [address] [place], [address] BUN/CRE 34.7 RATIO High 10-20 [facility] Comment on above: Performed By: #### L 500.4050, L100.0100 ####[facility] [address] [place], [address] Calcium [Mass/Vol] 8.7 mg/dL Normal 7.6-11.0 [facility] Comment on above: Performed By: #### L 500.4050, L100.0100 ####[facility] [address] [place], [address] Chloride [Moles/Vol] 111 mmol/L High 98-108 [facility] Comment on above: Performed By: #### L 500.4050, L100.0100 ####[facility] [address] [place], [address] CO2 [Moles/Vol] 19.2 mmol/L Low 21.0-32.0 [facility] Comment on above: Performed By: #### L 500.4050, L100.0100 ####[facility] [address] [place], [address] Creatinine [Mass/Vol] 1.73 mg/dL High 0.70-1.20 [facility] Comment on above: Performed By: #### L 500.4050, L100.0100 ####[facility] [address] [place], [address] GAP 13 Normal 5-15 [facility] Comment on above: Performed By: #### L 500.4050, L100.0100 ####[facility] [address] [place], [address] GFR/1.73 sq M.predicted among non-blacks MDRD (S/P/Bld) [Vol rate/Area] 29 mL/min/{1.73_m2} Low >60 [facility] Comment on above: Result Comment: mL/m in/1.73m2 CKD-EPI Creatinine Equation (2020) Performed By: #### L 500.4050, L100.0100 ####[facility] [address] [place], [address] Globulin (S) [Mass/Vol] 1.8 g/dL Low 2.2-4.2 [facility] Comment on above: Performed By: #### L 500.4050, L100.0100 ####[facility] [address] [place], [address] Glucose [Mass/Vol] 140 mg/dL High 70-99 [facility] Comment on above: Performed By: #### L 500.4050, L100.0100 ####[facility] [address] [place], [address] Potassium [Moles/Vol] 4.4 mmol/L Normal 3.3-5.1 [facility] Comment on above: Result Comment: Hemo lysis present, Results??could be affected.?? Performed By: #### L 500.4050, L100.0100 ####[facility] [address] [place], [address] Sodium [Moles/Vol] 143 mmol/L Normal 133-145 [facility] Comment on above: Performed By: #### L 500.4050, L100.0100 ####[facility] [address] [place], [address] T PROT 5.5 g/dL Low 5.9-8.4 [facility] Comment on above: Performed By: #### L 500.4050, L100.0100 ####[facility] [address] [place], [address] Urea nitrogen [Mass/Vol] 60 mg/dL High 4-19 [facility] Comment on above: Performed By: #### L 500.4050, L100.0100 ####[facility] [address] [place], [address] D-Dimer Quantitative (DVT/PE )on 12-27-2024 D-DIMER QUANT 0.53 FEU/ug/m Invalid Interpretation Code 0.27-0.49 [facility] Comment on above: Result Comment: D-Di mitali ELEVATED (>0.49): Additional studies and clinicalassessments are indicated to conclude diagnosis of:Deep Vein Thrombosis (DVT) or Pulmonary Embolism (PE)CRITICAL VALUE CALLED TO JOSE OLSEN12/27/24 0321 Damari Seth.RESULTS READ BACK BY SAME. Performed By: #### L 300.8000 ####[facility] [address] [place], [place], [id number] Echo, Limited Studyon 2024 Echo, Limited Study Normal [facility] Emergency Department Summary on 12-27-2024 Emergency Department Summary Normal [facility] H AND P Exam - Hospitaliston 12-27-2024 H&P Exam - Hospitalist Normal [facility] L501.4021on 12-27-2024 Trop T High Sen 97 ng/L Invalid Interpretation Code <=14 [facility] Comment on above: Result Comment: Crit ical Result(s) Called at: by:??Results read back bysame.Critical Result(s) Called at: 12-27-24 03:38 TO Roosevelt KELLY: MALKA MCGHEE??Results read back by same. Performed By: #### L 503.7505, L501.4021 ####[facility] [address] [place], [address] M100.678on 12-27-2024 M100.678 Pending SARS-CoV-2 (COVID 19) Negative INFLUENZA A Negative INFLUENZA B Negative RSV PCR Negative Normal [facility] Comment on above: Performed By: #### M 100.678 ####[facility] [address] [place], [place], [address] Pro- Brain NATRIURETIC PEPTI Corie 12-27-2024 proBNP > 86029 High <=1800 [facility] Comment on above: Result Comment: Hear t Failure Unlikely: < 300 pg/mLHeart Failure Likely< 50 Years: > 450 pg/mL50-75 Years: > 900 pg/mL>75 Years: > 1800 pg/mL Performed By: #### L 503.7505, L501.4021 ####[facility] [address] [place], [place], [address] Troponin T HS 2 HRon 025 Trop T High Sen 102 ng/L Invalid Interpretation Code <=14 [facility] Comment on above: Result Comment: Crit ical Result(s) Called at: 12-27-24 05:24 TO [facility] by: MALKA MCGHEE ??Results read back by same. Performed By: #### L 499.0042 ####[facility] [address] [facility] [place], [place], [address] Troponin T HS 4 HRon 025 Trop T High Sen 95 ng/L Invalid Interpretation Code <=14 [facility] Comment on above: Result Comment: Crit ical Result(s) Called to: Kelly HAWKINS ([facility]) by:Yogi??Results read back by same. Performed By: #### L 499.0043 ####[facility] [address] [facility] [place], [place], [address] [facility] LINDA PERALTA ([id number]) 1945 F Date Time Provider Department 12/23/24 [...] Status:Closed by DESIRAE ARZOLA on 12/26/24 [facility] Kidney and Bladder Normal [facility] Anion gap in Serum or Plasma Ordered By: Jennifer Tarango on 12-03-2024 Anion gap [Moles/Vol] 10 mmol[facility]L 07-04 [facility] BUN/creatinine ratioOrdered By: Jennifer Tarango on 12-03-2024 Urea nitrogen/Creatinine [Mass ratio] 22.8 mg/mg High 12-09 [facility] Basic Metabolic Profile (BMP )on 12-03-2024 BUN/CRE 22.6 RATIO High 12-09 [facility] Comment on above: Performed By: #### L 500.2500 ####[facility] [address] [place], [address] CO2 [Moles/Vol] 22.9 mmol/L Normal 21.0-32.0 [facility] Comment on above: Performed By: #### L 500.2500 ####[facility] [address] [place], [address] Creatinine [Mass/Vol] 1.72 mg/dL High 0.70-1.20 [facility] Comment on above: Performed By: #### L 500.2500 ####[facility] [address] [place], [address] GAP 11 Normal -15 [facility] Comment on above: Performed By: #### L 500.2500 ####[facility] [address] [place], [address] Carbon dioxide, total [Moles /volume] in Central venous bloodOrdered By: Jennifer Tarango on 12-03-2024 CO2 [Moles/Vol] 23.5 mmol/L 21.0-32.0 [facility] Chloride assayOrdered By: Dallas Tarango on 12-03-2024 Chloride [Moles/Vol] 108 mmol/L 98-108 [facility] Glomerular filtration rate ( GFR) estimation/1.73 sq m using serum, plasma, or whole bOrdered By: Jennifer Tarango on 12-03-2024 GFR/1.73 sq M.predicted among non-blacks MDRD (S/P/Bld) [Vol rate/Area] 30 mL/min/{1.73_m2} Low >60 [facility] Comment on above: mL/min/1.73m2 CKD-EP I Creatinine Equation (2020) Potassium measurement (mass/ volume)Ordered By: Jennifer Tarango on 12-03-2024 Potassium (Unsp spec) [Mass/Vol] 4.6 mmol/L 3.3-5.1 [facility] Renal Profileon 12-03-2024 Albumin [Mass/Vol] 3.9 g/dL Normal 3.4-4.8 [facility] Comment on above: Performed By: #### L 500.3600 ####[facility] [address] [place], [address] BUN/CRE 22.8 RATIO High 10-20 [facility] Comment on above: Performed By: #### L 500.3600 ####[facility] [address] [place], [address] Calcium [Mass/Vol] 9.4 mg/dL Normal 7.6-11.0 [facility] Comment on above: Performed By: #### L 500.3600 ####[facility] [address] [place], [address] Performed By: #### L 500.2500 ####[facility] [address] [place], [address] Chloride [Moles/Vol] 108 mmol/L Normal 98-108 [facility] Comment on above: Performed By: #### L 500.3600 ####[facility] [address] [place], [address] Performed By: #### L 500.2500 ####[facility] [address] [place], [address] CO2 [Moles/Vol] 23.5 mmol/L Normal 21.0-32.0 [facility] Comment on above: Performed By: #### L 500.3600 ####[facility] [address] [place], [address] Creatinine [Mass/Vol] 1.69 mg/dL High 0.70-1.20 [facility] Comment on above: Performed By: #### L 500.3600 ####[facility] [address] [place], [address] GAP 10 Normal 5-15 [facility] Comment on above: Performed By: #### L 500.3600 ####[facility] [address] [place], [address] GFR/1.73 sq M.predicted among non-blacks MDRD (S/P/Bld) [Vol rate/Area] 30 mL/min/{1.73_m2} Low >60 [facility] Comment on above: Result Comment: mL/m in/1.73m2 CKD-EPI Creatinine Equation (2020) Performed By: #### L 500.3600 ####[facility] [address] [place], [address] Performed By: #### L 500.2500 ####[facility] [address] [place], [address] Glucose [Mass/Vol] 83 mg/dL Normal 70-99 [facility] Comment on above: Performed By: #### L 500.3600 ####[facility] [address] [place], [address] Performed By: #### L 500.2500 ####[facility] [address] [place], [address] Phosphate [Mass/Vol] 2.6 mg/dL Low 2.7-4.5 [facility] Comment on above: Performed By: #### L 500.3600 ####[facility] [address] [place], [address] Potassium [Moles/Vol] 4.6 mmol/L Normal 3.3-5.1 [facility] Comment on above: Performed By: #### L 500.3600 ####[facility] [address] [place], [address] Performed By: #### L 500.2500 ####[facility] [address] [place], [address] Sodium [Moles/Vol] 142 mmol/L Normal 133-145 [facility] Comment on above: Performed By: #### L 500.3600 ####[facility] [address] [place], [address] Performed By: #### L 500.2500 ####[facility] [address] [place], [address] Urea nitrogen [Mass/Vol] 39 mg/dL High 06-08 [facility] Comment on above: Performed By: #### L 500.3600 ####[facility] [address] [place], [address] Performed By: #### L 500.2500 ####[facility] [address] [place], [address] Serum creatinine measurement (mass/volume)Ordered By: Jennifer Tarango on 12-03-2024 Creatinine [Mass/Vol] 1.69 mg/dL High 0.70-1.20 [facility] Serum glucose measurement (m ass/volume)Ordered By: Jennifer Tarango on 12-03-2024 Glucose [Mass/Vol] 83 mg/dL 70-99 [facility] Serum or plasma albumin scott urement (mass/volume)Ordered By: Jennifer Tarango on 12-03-2024 Albumin [Mass/Vol] 3.9 g/dL 3.4-4.8 [facility] Serum or plasma calcium scott urement (mass/volume)Ordered By: Jennifer Tarango on 12-03-2024 Calcium [Mass/Vol] 9.4 mg/dL 7.6-11.0 [facility] Serum or plasma urea nitroge n measurement (mass/volume)Ordered By: Jennifer Tarango on 12-03-2024 Urea nitrogen [Mass/Vol] 39 mg/dL High 06-08 [facility] Sodium levelOrdered By: Dustin Tarango on 12-03-2024 Sodium [Moles/Vol] 142 mmol/L 133-145 [facility] Office Visiton 11-28-2024 Follow-up visit [id number] Ingris Peralta 1945 F Date Provider Department Center 11/28/2024 [id number] [facility] [address] Ar Family History Problem Relation Age of Onset Heart attack Mother Stroke Father Family Status - Relation Status Age at Mother Father Level of Service:70927 [place] OFFICE/OUTPATIENT ESTABLISHED MOD MDM 30 MIN Reason for Visit and Comments: Cardiac Valve Problem [1334] Normal [facility] [employer] [facility] Progress Noteon 11-28-2024 Progress Note [facility] [employer] [facility] [place] [address] [place] [address] Dept: [phone] Dept Visit type: Established : 1945 Reason for Visit: Cardiac Valve Problem Assessment and Plan 1. Chronic systolic heart failure (HCC) Class III. Stage C Continue metoprolol. Resume Lisinopril 5 mg daily. I will have her see the heart failure team given her severe LV dysfunction, Ritchie's disease, and CKD. She will have a [...] mm Hg). She had an admission at [facility] in July for [...] specialty: Independent interpretation of tests: Basim Joel, DISEASE EDUCATION SPECIALIST - PILL PACKER [1] Allergies Allergen Reactions Amlodipine Swelling Ciprofloxacin [...] Disp: , (more content not included)... Normal [employer] [facility] US Heart TransthoracicOrdere d By: Jefferson Adorno on 11-28-2024 [facility]ortic [facility]: Aortic Sinus Valsalva 3.1 cm [facility] [employer] Phone: Aortic Sinus Valsalva Index 1.81 cm/m2 [employer] Phone: Aortic valve Mean systole pressure gradient by US.doppler derived full Bernoulli 10 mmHg [facility] [employer] Phone: Aortic valve Orifice area by US 2.5 cm2 [facility] Phone: Aortic valve Peak systolic flow by US.doppler 1.5 m/s [facility] [employer] Phone: Ascending Aorta 3.4 cm [facility] [employer] Work Phone: Ascending Aorta Index 1.99 cm/m2 [facility] [employer] Work Phone: AV Area by Peak Velocity 1.1 cm2 [facility] [employer] Work Phone: AV Area by VTI 0.6 cm2 [facility] [employer] Work Phone: AV AT 91.34 ms [facility] [employer] Work Phone: AV Peak Gradient 18 mmHg [facility] [employer] Work Phone: AV Peak Velocity 2.1 m/s [facility] [employer] Work Phone: AV Velocity Ratio 0.43 [facility] [employer] Phone: AV VTI 51.3 cm [facility] [employer] Work Phone: OMID/BSA Peak Velocity 0.6 cm2/m2 [facility] [employer] Work Phone: OMID/BSA VTI 0.4 cm2/m2 [facility] [employer] Work Phone: E/E' Lateral 10.14 [facility] [employer] Work Phone: E/E' Ratio (Averaged) 7.8 [facility] [employer] Work Phone: E/E' Septal 5.46 [facility] [employer] Work Phone: Est. RA Pressure 8 mmHg [facility] [employer] Work Phone: Fractional Shortening 2D 6 % 28 - 44 % [facility] [employer] Work Phone: Global Longitudinal Strain -6.8 % [facility] [employer] Work Phone: Interpretation and review of laboratory results Abnormal [facility] [employer] Work Phone: IVC Diameter 1.8 cm [facility] [employer] Work Phone: IVSd 1.3 cm Abnormal 0.6 - 0.9 cm [facility] [employer] Work Phone: LA Diameter 4.7 cm [facility] [employer] Work Phone: LA Size Index 2.75 cm/m2 [facility] [employer] Work Phone: LA Volume 2C 79 mL Abnormal 22 - 52 mL [facility] Work Phone: LA Volume 4C 69 mL Abnormal 22 - 52 mL [facility] Work Phone: LA Volume A/L 79 mL [facility] [employer] Work Phone: LA Volume BP 75 mL Abnormal 22 - 52 mL [facility] [employer] Work Phone: LA Volume Index 2C 46 mL/m2 Abnormal 16 - 34 mL/m2 [facility] [employer] Work Phone: LA Volume Index 4C 40 mL/m2 Abnormal 16 - 34 mL/m2 [facility] [employer] Work Phone: LA Volume Index A/L 46 mL/m2 16 - 34 mL/m2 [facility] [employer] Work Phone: LA Volume Index BP 44 ml/m2 Abnormal 16 - 34 ml/m2 [facility] [employer] Work Phone: Left ventricular Ejection fraction by US.2D+Calculated by biplane method of disks 20 % Abnormal 55 - 100 % [facility] [employer] Work Phone: LV E' Lateral Velocity 7 cm/s [facility] Work Phone: LV E' Septal Velocity 13 cm/s [facility] Work Phone: LV EDV A2C 131 mL [facility] [employer] Work Phone: LV EDV A4C 130 mL [facility] [employer] Work Phone: LV EDV BP 133 mL Abnormal 56 - 104 mL [facility] [employer] Work Phone: LV EDV Index A2C 77 mL/m2 [facility] [employer] Work Phone: LV EDV Index A4C 76 mL/m2 [facility] [employer] Work Phone: LV EDV Index BP 78 mL/m2 [facility] [employer] Work Phone: LV Ejection Fraction A2C 24 % [facility] [employer] Work Phone: LV Ejection Fraction A4C 13 % [facility] [employer] Work Phone: LV ESV A2C 100 mL [facility] [employer] Work Phone: LV ESV A4C 113 mL [facility] [employer] Work Phone: LV ESV BP 107 mL Abnormal 19 - 49 mL [facility] [employer] Work Phone: LV ESV Index A2C 58 mL/m2 [facility] [employer] Work Phone: LV ESV Index A4C 66 mL/m2 [facility] [employer] Work Phone: LV ESV Index BP 63 mL/m2 [facility] [employer] Work Phone: LV Mass 2D 295.6 g Abnormal 67 - 162 g [facility] [employer] Work Phone: LV Mass 2D Index 172.9 g/m2 Abnormal 43 - 95 g/m2 [facility] [employer] Work Phone: LV RWT Ratio 0.48 [facility] [employer] Work Phone: LVIDd 5.4 cm Abnormal 3.9 - 5.3 cm [facility] [employer] Work Phone: LVIDd Index 3.16 cm/m2 [facility] [employer] Work Phone: LVIDs 5.1 cm [facility] [employer] Work Phone: LVIDs Index 2.98 cm/m2 [facility] [employer] Work Phone: LVOT Cardiac Output 2.4 liter/minute [facility] [employer] Work Phone: LVOT Diameter 1.8 cm [facility] Work Phone: LVOT Mean Gradient 1 mmHg [facility] [employer] Work Phone: LVOT Peak Gradient 3 mmHg [facility] [employer] Work Phone: LVOT Peak Velocity 0.9 m/s [facility] [employer] Work Phone: LVOT Stroke Volume Index 18.9 mL/m2 [facility] [employer] Work Phone: LVOT SV 32.3 ml [facility] [employer] Work Phone: LVOT VTI 12.7 cm [facility] [employer] Work Phone: LVOT:AV VTI Index 0.25 [facility] Work Phone: LVPWd 1.3 cm Abnormal 0.6 - 0.9 cm [facility] Work Phone: MR VTI 194.9 cm [facility] Work Phone: MV A Velocity 0.83 m/s [facility] Work Phone: MV E Velocity 0.71 m/s [facility] Work Phone: MV E Wave Deceleration Time 162.7 ms [facility] Work Phone: MV E/A 0.86 [facility] Work Phone: MV Nyquist Velocity 36 cm/s [facility] Work Phone: MV Regurg Velocity PISA 5.6 m/s [facility] Work Phone: RA Area 4C 85.2 mL [facility] Work Phone: RA Area 4C 79.9 mL [facility] [employer] Work Phone: RV Basal Dimension 4.1 cm [facility] Work Phone: RV Free Wall Peak S' 17 cm/s [facility] Work Phone: RV Longitudinal Dimension 8.2 cm [facility] Work Phone: RV Mid Dimension 2.3 cm [facility] Work Phone: RVSP 49 mmHg [facility] Work Phone: Sinotubular Junction 2.1 cm [facility] Work Phone: TAPSE 3.4 cm 1.7 cm [facility] Work Phone: TR Max Velocity 3.21 m/s [facility] Work Phone: TR Peak Gradient 41 mmHg [facility] Work Phone: TR Peak Velocity PISA 2.7 m/s [facility] Work Phone: TR VTI 86.9 cm [facility] Work Phone: [facility] Work Phone: US Heart Transthoracicon [...] Cardiology Visit Reporton Cardiology Visit Report Normal [facility] 36on 11-04-2024 36 Renal function juventino nance. Advised to take Lasix 20 mg daily for 3 days and then re- evaluate by phone. Weight 150. BP 120 systolic, HR 70s. Mild dizziness unchanged. Breathing OK, walking more. mm Normal [facility] 36 Did you call patient RE: her lab results? Normal [facility] 29on 10-31-2024 29 Addended by: JAQUELIN MONCADA on: 10/31/2024 02:58 PM Modules accepted: Orders Normal [facility] 37on 10-31-2024 37 If weight gain great er than 3lbs/24 hours or > 5lbs in one week. Take 1/2 Lasix (furosemide) Normal [facility] BASIC METABOLIC PANELon 10-21 Anion gap [Moles/Vol] 6 mmol/L Normal 3-13 [facility] Comment on above: Performed By: #### L AB15 ####Bond Trader: JAQUELIN RICO ([id number])[facility] ([id number] Calcium [Mass/Vol] 9.4 mg/dL Normal 8.8-10.0 [facility] Comment on above: Performed By: #### L AB15 ####Bond Trader: JAQUELIN RICO ([id number])[facility])[address] [place] [address] Chloride [Moles/Vol] 110 mmol/L High 98-107 [facility] Comment on above: Performed By: #### L AB15 ####B[employer] Trader: JAQUELIN RICO ([id number])[facility])[address] [place] [address] CO2 [Moles/Vol] 27 mmol/L Normal 23-31 [facility] Comment on above: Performed By: #### L AB15 ####B[employer] Trader: JAQUELIN RICO ([id number])[facility])[address] [place] [address] Creatinine [Mass/Vol] 1.47 mg/dL High 0.57-1.11 [facility] Comment on above: Performed By: #### L AB15 ####B[employer] Trader: JAQUELIN RICO ([id number])[facility])[address] [place] [address] GLOMERULAR FILTRATION RATE ML/MIN/1.73 SQ M.PREDICTED 35.7 mL/min/1.73m*2 Low >60.0 [facility] Comment on above: Result Comment: Calc ulation based on the Chronic Kidney Disease Epidemiology Collaboration (CKD-EPI) equation refit without adjustment for race Performed By: #### L AB15 ####B[employer] Trader: JAQUELIN RICO ([id number])[facility])[address] [place] [address] Glucose [Mass/Vol] 62 mg/dL Low 82-115 [facility] Comment on above: Performed By: #### L AB15 ####B[employer] Trader: JAQUELIN RICO ([id number])[facility])[address] [place] [address] Potassium [Moles/Vol] 4.7 mmol/L Normal 3.5-5.1 [facility] Comment on above: Result Comment: [facility] potassium values may be up to 0.5 mmol/L lower than serum values. Performed By: #### L AB15 ####Bond Trader: JAQUELIN RICO ([id number])[facility] ([facility])[address] [place] [address] Sodium [Moles/Vol] 143 mmol/L Normal 136-145 [facility] Comment on above: Performed By: #### L AB15 ####Bond Trader: JAQUELIN RICO ([id number])[facility] ([facility])[address] [place] [address] Urea nitrogen [Mass/Vol] 32 mg/dL High 9-23 [facility] Comment on above: Performed By: #### L AB15 ####Bond Trader: JAQUELIN RICO ([id number])[facility])[address] [place] [address] Basic metabolic 1998 panelon 10-31-2024 Anion gap [Moles/Vol] 6 mmol/L 3 - 13 mmol/L [facility] Calcium [Mass/Vol] 9.4 mg/dL 8.8 - 10. 0 mg/dL [facility] Chloride [Moles/Vol] 110 mmol/L High 98 - 10 7 mmol/L [facility] CO2 [Moles/Vol] 27 mmol/L 23 - 31 mmol/L [facility] Creatinine [Mass/Vol] 1.47 mg/dL High 0.57 - 1.11 mg/dL [facility] GFR/1.73 sq M.predicted (S/P/Bld) [Vol rate/Area] 35.7 mL/min Low - PINF [facility] Comment on above: Calculation based on the Chronic Kidney Disease Epidemiology Collaboration (CKD-EPI) equation refit without adjustment for race Glucose [Mass/Vol] 62 mg/dL Low 82 - 115 mg/dL [facility] Interpretation and review of laboratory results Abnormal [facility] Potassium [Moles/Vol] 4.7 mmol/L 3.5 - 5.1 mmol/L [facility] Comment on above: Plasma potassium olga lidia ues may be up to 0.5 mmol/L lower than serum values. Sodium [Moles/Vol] 143 mmol/L 136 - 145 mmol/L [facility] Urea nitrogen [Mass/Vol] 32 mg/dL High 9 - 23 mg/dL [facility] Office Visiton 10-31-2024 Follow-up visit [id number] Ingris Peralta 1945 F Date Provider Department Center 10/31/2024 [id number]-FQRFWIBASIM JOEL [facility] [address] Ar Family History Problem Relation Age of Onset Heart attack Mother Stroke Father Family Status - Relation Status Age at Mother Father Level of Service:08103 [place] OFFICE/OUTPATIENT ESTABLISHED MOD MDM 30 MIN Reason for Visit and Comments: Cardiac Valve Problem [1334] Hospital Follow-up [832] Normal [facility] Progress Noteon 10-31-2024 Progress Note [facility] [place] [address] [place] [address] Dept: [phone] Dept Visit type: Established : 1945 Reason for Visit: Cardiac Valve Problem and Hospital Follow-up Assessment and Plan 1. Severe aortic stenosis S/p TAVR. Contiue Eliquis, SBE prophylaxis.Echo one month 2. 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 Chronic [...] a PMH for CAD, HPL, DVT, PE, Ritchie's disease, CKD s/p left nephrectomy (donated) and [...] Rfl: [3] Past Medical History: Diagnosis Date Ritchie anemia 2010 [4] Past Surgical History: Procedure Laterality Date BLADDER REPAIR CARDIAC CATHETERIZATION N/A 10/23/2024 Performed by Memo Canas MD at [facility] OR HX CYSTECTOMY (HISTORICAL) LAPAROSCOPIC NEPHRECTOMY (HISTORICAL) Left TOTAL ABDOMINAL HYSTERECTOMY [5] Family History Problem Relation Name (more content not included)... [facility] 10-29-2024 CNOV Office Visit (INTMWS ) -------- LINDA PERALTA ([id number]) 1945 F Date Time Provider Department 10/29/24 10:40 AM AMOS FLOYD INTMWS During your visit today, we recorded the following information about you: Temperature Pulse Respiration Blood pressure 97.5 degrees 60/minute 20/minute 112/72 Weight 69.6 kg Amos Floyd MD 10/29/2024 12:03 PM Addendum Subjective Linda Peralta is a 79 year old female here with her daughter. She had TAVR at [facility] last week. She had some fluid retention prior to surgery and was prescribed furosemide 40 mg daily for 3 days with weight loss of around 20 pounds. She started regaining weight and was again advised 2 days of furosemide last week. Echo last week showed EF dropped to 20%. They have another echocardiogram scheduled. She has a follow up with [facility] this , and the [facility] later this month. ACTIVE PROBLEM [...] valve s (more content not included)... Normal [facility] [id number] 10-29-2024 ECG01 Ventricular Rate : 1 00 BPM Atrial Rate : 100 BPM P-R Interval : 142 ms QRS Duration : 88 ms Q-T Interval : 362 ms QTC Calculation(Bazett) : 466 ms Calculated P [place] : 43 degrees Calculated R [place] : -27 degrees Calculated T [place] : 101 degrees NORMAL SINUS RHYTHM LEFT VENTRICULAR HYPERTROPHY WITH REPOLARIZATION ABNORMALITY ( R in aVL , Noel product ) ABNORMAL ECG Confirmed by MD GALLARDO QARAB ([id number]) on 10/31/2024 5:12:58 PM NAME : LINDA PERALTA PID : [id number] : 1945 Gender : Female Race : ORD : Procedure Date : Oct 29 2024 11:31:04 Edit Date : Oct 31 2024 17:19:41 Diagnosis: NORMAL SINUS RHYTHM LEFT VENTRICULAR HYPERTROPHY WITH REPOLARIZATION ABNORMALITY ( R in aVL , Dresden product ) ABNORMAL ECG Confirmed by MD GALLARDO QARAB ([id number]) on 10/31/2024 5:12:58 PM Test Reason : Location : [address] [place] [address] Overread By : MD GALLARDO QARAB Edited By : MD GALLARDO QARAB Referred By : Amos Floyd Acquired by : Cassandra Vieira [facility] 36on 10-28-2024 36 Per TVT registry guidelines, 5 meter walk test completed in office on 09/03/24. 7 seconds, 7 seconds, 7 seconds Normal [facility] BASIC METABOLIC PANELon Anion gap [Moles/Vol] 7 mmol/L Normal -13 [facility] Comment on above: Performed By: #### L AB15 ####Bond Trader: JAQUELIN RICO ([id number])[facility] ([address] Calcium [Mass/Vol] 8.2 mg/dL Low 8.8-10.0 [facility] Comment on above: Performed By: #### L AB15 ####Bond Trader: JAQUELIN RICO ([id number])[facility] ([facility])[address] [place] [id number] [place] [address] Chloride [Moles/Vol] 111 mmol/L High 98-107 [facility] Comment on above: Performed By: #### L AB15 ####Bond Trader: JAQUELIN RICO ([id number])[facility] ([facility])[address] [place] [address] CO2 [Moles/Vol] 18 mmol/L Low 23-31 [facility] Comment on above: Performed By: #### L AB15 ####Bond Trader: JAQUELIN RICO ([id number])[facility] ([facility])[address] [place] [address] Creatinine [Mass/Vol] 1.57 mg/dL High 0.57-1.11 [facility] Comment on above: Performed By: #### L AB15 ####Bond Trader: JAQUELIN RICO ([id number])[facility] ([facility])[address] [place] [address] [place] GLOMERULAR FILTRATION RATE ML/MIN/1.73 SQ M.PREDICTED 33.0 mL/min/1.73m*2 Low >60.0 [facility] Comment on above: Result Comment: Calc ulation based on the Chronic Kidney Disease Epidemiology Collaboration (CKD-EPI) equation refit without adjustment for race Performed By: #### L AB15 ####Bond Trader: JAQUELIN RICO ([id number])[facility] ([facility])[address] [place] [address] [place] Glucose [Mass/Vol] 108 mg/dL Normal 82-115 [facility] Comment on above: Performed By: #### L AB15 ####Bond Trader: JAQUELIN RICO ([id number])[facility] ([facility])[address] [place] [address] [place] Potassium [Moles/Vol] 4.4 mmol/L Normal 3.5-5.1 [facility] Comment on above: Result Comment: [facility] potassium values may be up to 0.5 mmol/L lower than serum values. Performed By: #### L AB15 ####Bond Trader: JAQUELIN RICO ([id number])[facility] [place] [address] Sodium [Moles/Vol] 136 mmol/L Normal 136-145 [facility] Comment on above: Performed By: #### L AB15 ####Bond Trader: JAQUELIN RICO ([id number])[facility] ([facility])[address] [place] [address] Urea nitrogen [Mass/Vol] 38 mg/dL High 9-23 [facility] Comment on above: Performed By: #### L AB15 ####Bond Trader: JAQUELIN RICO ([id number])[facility] ([facility])[address] [place] [address] Basic metabolic 1998 panelon 10-24-2024 Anion gap [Moles/Vol] 7 mmol/L 3 - 13 mmol/L [facility] Calcium [Mass/Vol] 8.2 mg/dL Low 8.8 - 10. 0 mg/dL [facility] Chloride [Moles/Vol] 111 mmol/L High 98 - 10 7 mmol/L [facility] CO2 [Moles/Vol] 18 mmol/L Low 23 - 31 mmol/L [facility] Creatinine [Mass/Vol] 1.57 mg/dL High 0.57 - 1.11 mg/dL [facility] GFR/1.73 sq M.predicted (S/P/Bld) [Vol rate/Area] 33 mL/min Low - PINF [facility] Comment on above: Calculation based on the Chronic Kidney Disease Epidemiology Collaboration (CKD-EPI) equation refit without adjustment for race Glucose [Mass/Vol] 108 mg/dL 82 - 115 mg/dL [facility] Interpretation and review of laboratory results Abnormal [facility] Potassium [Moles/Vol] 4.4 mmol/L 3.5 - 5.1 mmol/L [facility] Comment on above: Plasma potassium olga lidia ues may be up to 0.5 mmol/L lower than serum values. Sodium [Moles/Vol] 136 mmol/L 136 - 145 mmol/L [facility] Urea nitrogen [Mass/Vol] 38 mg/dL High 9 - 23 mg/dL [facility] CBC (HEMOGRAM)on 10-24-2024 Erythrocyte distribution width (RBC) [Ratio] 15.1 % High 11.5-15.0 [facility] Comment on above: Performed By: #### L [id number] ####Bond Trader: JAQUELIN RICO ([id number])[facility])[address] [place] [address] Hematocrit (Bld) [Volume fraction] 40.3 % Normal 35.0-47.0 [facility] Comment on above: Performed By: #### L [id number] ####Bond Trader: JAQUELIN RICO ([id number])[address] Hemoglobin (Bld) [Mass/Vol] 12.8 g/dL Normal 11.7-16.0 [facility] Comment on above: Performed By: #### L [id number] ####Bond Trader: JAQUELIN RICO ([id number])[address] MCH (RBC) [Entitic mass] 29.3 pg Normal 26.0-34.0 [facility] Comment on above: Performed By: #### L [id number] ####Bond Trader: JAQUELIN RICO ([id number])[address] MCHC 31.8 % Normal 30.5-36.0 [facility] Comment on above: Performed By: #### L [id number] ####Bond Trader: JAQUELIN RICO ([id number])[address] MCV (RBC) [Entitic vol] 92.2 fL Normal 77.0-99.0 [facility] Comment on above: Performed By: #### L [id number] ####Bond Trader: JAQUELIN RICO ([id number])[facility])[address] [place] [address] Platelet mean volume (Bld) [Entitic vol] 12.5 fL Normal 9.0-12.7 [facility] Comment on above: Performed By: #### L [id number] ####Bond Trader: JAQUELIN RICO ([id number])[facility])[address] [place] [address] Platelets (Bld) [#/Vol] 132 10*3/uL Low 140-440 [facility] Comment on above: Performed By: #### L [id number] ####Bond Trader: JAQUELIN RICO ([id number])[facility])[address] [place] [address] RBC (Bld) [#/Vol] 4.37 10*6/uL Normal 3.80-5.20 [facility] Comment on above: Performed By: #### L [id number] ####Bond Trader: JAQUELIN RICO ([id number])[facility])[address] [place] [address] WBC (Bld) [#/Vol] 9.6 10*3/uL Normal 3.6-10.7 [facility] Comment on above: Performed By: #### L [id number] ####Bond Trader: JAQUELIN RICO ([id number])[address] CBC panel Auto (Bld)on 10-24 Erythrocyte distribution width (RBC) [Ratio] 15.1 % High 11.5 - 15.0 % [facility] Hematocrit (Bld) [Volume fraction] 40.3 % 35.0 - 47.0 % [facility] Hemoglobin (Bld) [Mass/Vol] 12.8 g/dL 11.7 - 16.0 g/dL [facility] Interpretation and review of laboratory results Abnormal [facility] MCH (RBC) [Entitic mass] 29.3 pg 26.0 - 34.0 pg [facility] MCHC (RBC) [Mass/Vol] 31.8 % 30.5 - 36.0 % [facility] MCV (RBC) [Entitic vol] 92.2 fL 77.0 - 99.0 fL [facility] [employer] Platelet mean volume (Bld) [Entitic vol] 12.5 fL 9.0 - 12.7 fL [facility] [employer] Platelets (Bld) [#/Vol] 132 10*3/uL Low 140 - 440 10*3/uL [facility] [employer] [facility] RBC (Bld) [#/Vol] 4.37 10*6/uL 3.80 - 5.2 0 10*6/uL [facility] [employer] [facility] WBC (Bld) [#/Vol] 9.6 10*3/uL 3.6 - 10.7 10*3/uL [facility] [facility] ECG 12-LEADon 10-24-2024 ECG 12-LEAD IMPRESSION: Sinus rhythm Atrial premature complex Probable left atrial enlargement Nonspecific T wave changes Electronically Signed On 10-24-2024 15:16:18 EDT by Frandy Mccoy [facility] [employer] [facility] No Panel InformationOrdered By: Frandy Mccoy on 10-24-2024 P [place] 61 degrees [employer] Work Phone: GA Interval 145 ms [employer] Work Phone: QRS [place] 2 degrees [employer] Work Phone: QRSD Interval 89 ms [employer] Work Phone: QT Interval 371 ms [employer] Work Phone: QTC Interval 445 ms [employer] Work Phone: T Wave [place] 142 degrees [employer] Work Phone: [employer] Work Phone: [phone] No Panel Informationon 10-24 Sinus rhythm Atrial premature complex Probable left atrial enlargement Nonspecific T wave changes Electronically Signed On 10-24-2024 15:16:18 EDT by Frandy Macias M D - 10/24/2024 IMPRESSION: Sinus rhythm Atrial premature complex Probable left atrial enlargement Nonspecific T wave changes Electronically Signed On 10-24-2024 15:16:18 EDT by Frandy Mccoy [facility] Nursing Noteon 10-24-2024 Nursing Note All discharge instructions gone over with pt and family. Med rec revoewed in depth. All restrictions, activity, site care and precautions gone over along with appointments. Saline lock removed. To daughters car via wheelchair, discharged home. Normal [facility] Nursing Note Pt had a restful nig ht and even got up the the bathroom during the night with standby assist. Pt is up in a chair eating her Breakfast. Normal [facility] Progress Noteon 10-24-2024 Progress Note Physician Response Please review the following and provide your response below. Please clarify which of the following accurately describes the patient's CKD Stage: CKD Stage 3 (GFR 30-59) This documentation will become part of the patient's medical record. Normal [facility] Progress Note PHYSICAL THERAPY [facility] Name/MRN: Linda Peralta ([id number]) Date: 10/24/2024 PT orders received per Oniel activity/mobility score. Patient currently with Oniel activity/mobility score greater than 2. Per therapy services guidelines, will discharge PT orders. Please place regular PT eval/treat orders if deemed appropriate. Shea Perez, PT Normal [facility] US Heart TransthoracicOrdere d By: Jefferson Adorno on 10-24-2024 Aortic Sinus Valsalva 3.1 cm [employer] Phone: Aortic Sinus Valsalva Index 1.86 cm/m2 [employer] Phone: Aortic valve Mean systole pressure gradient by US.doppler derived full Bernoulli 5 mmHg [employer] Phone: Aortic valve Orifice area by US 3.1 cm2 [facility] Phone: [phone] Aortic valve Peak systolic flow by US.doppler 1.1 m/s [employer] Phone: [phone] Ascending Aorta 3.4 cm [employer] Phone: [phone] Ascending Aorta Index 2.04 cm/m2 [employer] Phone: [phone] AV Area by Peak Velocity 1.7 cm2 [employer] Phone: [phone] AV Area by VTI 1.5 cm2 [employer] Phone: AV AT 79.92 ms [facility] Work Phone: AV Peak Gradient 9 mmHg [facility] [employer] Work Phone: AV Peak Velocity 1.5 m/s [facility] [employer] Work Phone: AV Velocity Ratio 0.53 [facility] [employer] Work Phone: AV VTI 28.2 cm [facility] [employer] Work Phone: OMID/BSA Peak Velocity 1 cm2/m2 [place] [employer] Work Phone: OMID/BSA VTI 0.9 cm2/m2 [facility] [employer] Work Phone: E/E' Lateral 17 [facility] [employer] Work Phone: E/E' Ratio (Averaged) 14.57 [place] [employer] Work Phone: E/E' Septal 12.14 [facility] [employer] Phone: Est. RA Pressure 8 mmHg [facility] [employer] Phone: Fractional Shortening 2D 10 % 28 - 44 % [facility] [employer] Work Phone: Global Longitudinal Strain -9.4 % [facility] [employer] Phone: Interpretation and review of laboratory results Abnormal [facility] Phone: IVC Diameter 2.5 cm [facility] Phone: IVSd 1 cm Abnormal 0.6 - 0.9 cm [facility] Phone: [phone] LA Volume 2C 82 mL Abnormal 22 - 52 mL [email or web address] Work Phone: LA Volume 4C 49 mL 22 - 52 mL [facility] Phone: LA Volume A/L 68 mL [email or web address] Work Phone: LA Volume BP 63 mL Abnormal 22 - 52 mL [email or web address] Work Phone: LA Volume Index 2C 49 mL/m2 Abnormal 16 - 34 mL/m2 [facility] Phone: LA Volume Index 4C 29 mL/m2 16 - 34 mL/m2 [email or web address] Work Phone: [phone] LA Volume Index A/L 41 mL/m2 16 - 34 mL/m2 [facility] [employer] Work Phone: LA Volume Index BP 38 ml/m2 Abnormal 16 - 34 ml/m2 [facility] [employer] Work Phone: Left ventricular Ejection fraction by US.2D+Calculated by biplane method of disks 18 % Abnormal 55 - 100 % [facility] [employer] Work Phone: LV E' Lateral Velocity 5 cm/s [facility] Work Phone: LV E' Septal Velocity 7 cm/s [facility] Work Phone: LV EDV A2C 186 mL [facility] [employer] Work Phone: LV EDV A4C 183 mL [facility] [employer] Work Phone: LV EDV BP 190 mL Abnormal 56 - 104 mL [facility] [employer] Work Phone: LV EDV Index A2C 111 mL/m2 [facility] [employer] Work Phone: LV EDV Index A4C 110 mL/m2 [facility] [employer] Work Phone: LV EDV Index BP 114 mL/m2 [facility] [employer] Work Phone: LV Ejection Fraction A2C 21 % [facility] [employer] Work Phone: LV Ejection Fraction A4C 10 % [facility] [employer] Work Phone: LV ESV A2C 147 mL [facility] [employer] Work Phone: LV ESV A4C 164 mL [facility] [employer] Work Phone: LV ESV BP 157 mL Abnormal 19 - 49 mL [facility] [employer] Work Phone: LV ESV Index A2C 88 mL/m2 [facility] [employer] Work Phone: LV ESV Index A4C 98 mL/m2 [facility] [employer] Work Phone: LV ESV Index BP 94 mL/m2 [facility] [employer] Work Phone: LV Mass 2D 218.1 g Abnormal 67 - 162 g [facility] [employer] Work Phone: LV Mass 2D Index 130.6 g/m2 Abnormal 43 - 95 g/m2 [email or web address] Work Phone: LV RWT Ratio 0.31 [facility] [employer] Work Phone: LVIDd 5.8 cm Abnormal 3.9 - 5.3 cm [facility] [employer] Work Phone: LVIDd Index 3.47 cm/m2 [facility] [employer] Work Phone: LVIDs 5.2 cm [facility] [employer] Work Phone: LVIDs Index 3.11 cm/m2 [facility] [employer] Work Phone: LVOT Cardiac Output 3.6 liter/minute [facility] [employer] Work Phone: LVOT Diameter 2 cm [facility] [employer] Work Phone: LVOT Mean Gradient 2 mmHg [facility] [employer] Work Phone: LVOT Peak Gradient 3 mmHg [facility] [employer] Work Phone: LVOT Peak Velocity 0.8 m/s [facility] [employer] Work Phone: LVOT Stroke Volume Index 24.6 mL/m2 [facility] [employer] Work Phone: LVOT SV 41.1 ml [facility] [employer] Work Phone: LVOT VTI 13.1 cm [facility] [employer] Work Phone: LVOT:AV VTI Index 0.46 [facility] [employer] Work Phone: LVPWd 0.9 cm 0.6 - 0.9 cm [facility] [employer] Work Phone: MR VTI 177.7 cm [facility] [employer] Work Phone: MV A Velocity 1.28 m/s [facility] [employer] Work Phone: MV E Velocity 0.85 m/s [facility] [employer] Work Phone: MV E Wave Deceleration Time 140.6 ms [facility] [employer] Work Phone: MV E/A 0.66 [facility] [employer] Work Phone: MV Nyquist Velocity 36 cm/s [facility] [employer] Work Phone: MV Regurg Velocity PISA 5.6 m/s [facility] [employer] Phone: [phone] RA Area 4C 59.8 mL [facility] [employer] Work Phone: [phone] RA Area 4C 59.1 mL [facility] [employer] Phone: [phone] RV Basal Dimension 3.8 cm [facility] [employer] Phone: [phone] RV Free Wall Peak S' 13 cm/s [facility] [employer] Work Phone: [phone] RV Longitudinal Dimension 8.5 cm [facility] [employer] Phone: [phone] RV Mid Dimension 2.1 cm [facility] [employer] Phone: [phone] RVSP 58 mmHg [facility] [employer] Phone: [phone] Sinotubular Junction 2.1 cm [facility] [employer] Phone: [phone] TAPSE 2.3 cm 1.7 cm [facility] [employer] Phone: [phone] TR Max Velocity 3.55 m/s [facility] [employer] Phone: [phone] TR Peak Gradient 51 mmHg [facility] [employer] Phone: [phone] [facility] [employer] Phone: [phone] Heart Transthoracicon Left Ventricle: Left ventricle [...] on 10-24-2024 Heart rate 89 /min bpm [facility] Work Phone: BASIC METABOLIC PANELon 09-0 Anion gap [Moles/Vol] 8 mmol/L Normal 3-13 [facility] Comment on above: Performed By: #### L [id number] #### Bond Trader: JAQUELIN RICO ([id number]) [facility] [address] [place] [address] Calcium [Mass/Vol] 7.9 mg/dL Low 8.8-10.0 [facility] Comment on above: Performed By: #### L AB15 #### Bond Trader: JAQUELIN RICO ([id number]) [facility] [address] [place] [address] Chloride [Moles/Vol] 113 mmol/L High 98-107 [facility] Comment on above: Performed By: #### L AB15 #### Bond Trader: JAQUELIN RICO ([id number]) [facility] [address] [place] [address] CO2 [Moles/Vol] 18 mmol/L Low 23-31 [facility] Comment on above: Performed By: #### L AB15 #### Bond Trader: JAQUELIN RICO ([id number]) [facility]) [address] [place] [address] Creatinine [Mass/Vol] 1.47 mg/dL High 0.57-1.11 [facility] Comment on above: Performed By: #### L AB15 #### Bond Trader: JAQEULIN RICO ([id number]) [facility] ([facility]) [address] [place] [address] GLOMERULAR FILTRATION RATE ML/MIN/1.73 SQ M.PREDICTED 35.7 mL/min/1.73m*2 Low >60.0 [facility] Comment on above: Result Comment: Calc ulation based on the Chronic Kidney Disease Epidemiology Collaboration (CKD-EPI) equation refit without adjustment for race Performed By: #### L AB15 #### Bond Trader: JAQUELIN RICO ([phone]) [facility] ([facility]) [address] [place] [address] Glucose [Mass/Vol] 134 mg/dL High 82-115 [facility] Comment on above: Performed By: #### L AB15 #### Bond Trader: JAQUELIN RICO ([id number]) [facility] ([facility]) [address] [place] [address] Potassium [Moles/Vol] 4.0 mmol/L Normal 3.5-5.1 [facility] Comment on above: Result Comment: [facility] potassium values may be up to 0.5 mmol/L lower than serum values. Performed By: #### L AB15 #### Bond Trader: JAQUELIN RICO ([id number]) [facility] ([facility]) [address] [place] [address] Sodium [Moles/Vol] 139 mmol/L Normal 136-145 [facility] Comment on above: Performed By: #### L AB15 #### Bond Trader: JAQUELIN RICO ([id number]) [facility] ([facility]) [address] [place] [address] Urea nitrogen [Mass/Vol] 34 mg/dL High 9-23 [facility] Comment on above: Performed By: #### L AB15 #### Bond Trader: JAQUELIN RICO ([id number]) [facility]) [address] [place] [address] BLOOD TYPE AND SCREEN GELon 10-23-2024 ABO GROUPING O Normal [facility] Comment on above: Performed By: #### L [id number] ####Bond Trader: JAQUELIN RICO ([id number])[facility] ([facility])[address] [place] [address] RH TYPE IN BLOOD Positive Normal [facility] Comment on above: Performed By: #### L [id number] ####Bond Trader: JAQUELIN [id number])[facility] ([facility])[address] [place] [address] Basic metabolic 1998 panelon 10-23-2024 Anion gap [Moles/Vol] 8 mmol/L 3 - 13 mmol/L [facility] Calcium [Mass/Vol] 7.9 mg/dL Low 8.8 - 10. 0 mg/dL [facility] Chloride [Moles/Vol] 113 mmol/L High 98 - 10 7 mmol/L [facility] CO2 [Moles/Vol] 18 mmol/L Low 23 - 31 mmol/L [facility] Creatinine [Mass/Vol] 1.47 mg/dL High 0.57 - 1.11 mg/dL [facility] GFR/1.73 sq M.predicted (S/P/Bld) [Vol rate/Area] 35.7 mL/min Low - PINF [facility] Comment on above: Calculation based on the Chronic Kidney Disease Epidemiology Collaboration (CKD-EPI) equation refit without adjustment for race Glucose [Mass/Vol] 134 mg/dL High 82 - 115 mg/dL [facility] Interpretation and review of laboratory results Abnormal [facility] Potassium [Moles/Vol] 4 mmol/L 3.5 - 5.1 mmol/L [facility] Comment on above: Plasma potassium olga lidia ues may be up to 0.5 mmol/L lower than serum values. Sodium [Moles/Vol] 139 mmol/L 136 - 145 mmol/L [facility] Urea nitrogen [Mass/Vol] 34 mg/dL High 9 - 23 mg/dL [facility] Blood type and Crossmatch nighat dee dee (Bld)on 10-23-2024 ABO group Nom (Bld) O [facility] Blood group antibody screen GEL Ql Negative [facility] D Ag Ql (RBC) Positive [facility] CBC (HEMOGRAM)on 10-23-2024 Erythrocyte distribution width (RBC) [Ratio] 15.1 % High 11.5-15.0 [facility] Comment on above: Performed By: #### L [id number] ####Bond Trader: JAQUELIN RICO ([id number])[facility] ([facility])[address] [place] [address] Hematocrit (Bld) [Volume fraction] 39.7 % Normal 35.0-47.0 [facility] Comment on above: Performed By: #### L AB294 ####Bond Trader: JAQUELIN RICO ([id number])[facility])[address] [place] [address] Hemoglobin (Bld) [Mass/Vol] 12.4 g/dL Normal 11.7-16.0 [facility] Comment on above: Performed By: #### L AB294 ####Bond Trader: JAQUELIN RICO ([id number])[facility] ([facility])[address] [place] [address] MCH (RBC) [Entitic mass] 29.7 pg Normal 26.0-34.0 [facility] Comment on above: Performed By: #### L AB294 ####Bond Trader: JAQUELIN RICO ([id number])[facility])[address] [place] [address] MCHC 31.2 % Normal 30.5-36.0 [facility] Comment on above: Performed By: #### L AB294 ####Bond Trader: JAQUELIN RICO ([id number])[facility] ([facility])[address] [place] [address] MCV (RBC) [Entitic vol] 95.0 fL Normal 77.0-99.0 [facility] Comment on above: Performed By: #### L AB294 ####Bond Trader: JAQUELIN RICO ([id number])[facility])[address] [place] [address] Platelet mean volume (Bld) [Entitic vol] 12.6 fL Normal 9.0-12.7 [facility] Comment on above: Performed By: #### L AB294 ####Bond Trader: JAQUELIN RICO ([id number])[facility])[address] [place] [address] Platelets (Bld) [#/Vol] 119 10*3/uL Low 140-440 [facility] Comment on above: Performed By: #### L AB294 ####Bond Trader: JAQUELIN RICO ([id number])[facility] ([facility])[address] [place] [address] RBC (Bld) [#/Vol] 4.18 10*6/uL Normal 3.80-5.20 [facility] Comment on above: Performed By: #### L AB294 ####Bond Trader: JAQUELIN RICO ([id number])[facility] ([facility])[address] [place] [address] WBC (Bld) [#/Vol] 8.5 10*3/uL Normal 3.6-10.7 [facility] Comment on above: Performed By: #### L AB294 ####Bond Trader: JAQUELIN RICO ([id number])[facility] ([facility])[address] [place] [address] CBC panel Auto (Bld)Ordered By: Janay Wood on 10-23-2024 Erythrocyte distribution width (RBC) [Ratio] 15.1 % High 11.5 - 15.0 % [facility] Hematocrit (Bld) [Volume fraction] 39.7 % 35.0 - 47.0 % [facility] Hemoglobin (Bld) [Mass/Vol] 12.4 g/dL 11.7 - 16.0 g/dL [facility] Interpretation and review of laboratory results Abnormal [facility] MCH (RBC) [Entitic mass] 29.7 pg 26.0 - 34.0 pg [facility] MCHC (RBC) [Mass/Vol] 31.2 % 30.5 - 36.0 % [facility] MCV (RBC) [Entitic vol] 95 fL 77.0 - 99.0 fL [facility] Platelet mean volume (Bld) [Entitic vol] 12.6 fL 9.0 - 12.7 fL [facility] Platelets (Bld) [#/Vol] 119 10*3/uL Low 140 - 440 10*3/uL [facility] RBC (Bld) [#/Vol] 4.18 10*6/uL 3.80 - 5.2 0 10*6/uL [facility] WBC (Bld) [#/Vol] 8.5 10*3/uL 3.6 - 10.7 10*3/uL [facility] Cardiac catheterization stud yon 10-23-2024 Successful TAVR [...] Via the right IJ vein, a 6 Faroese sheath was placed and temporary pacing wire was placed into the RV apex with appropriate capture, in addition sterile tubing was attached and given the anesthesia for central access. Via radial artery artery, a 6-Faroese sheath was placed and the pigtail catheter was placed into the aortic annulus with confirmation the implant angle. Via the right femoral artery, a 6-Faroese sheath was placed. The patient was then heparinized. Next, two Perclose devices were used using the pre-close strategy. A Super Stiff wire was then placed through the second Perclose into the descending aorta. Then, a 14-Faroese Phong E-sheath was introduced over the wire [...] not hesitate to call with any questions. [employer] Cardiac catheterization stud yOrdered By: Memo Canas on 10-23-2024 [facility] Phone: ECG 12-LEADon 10-23-2024 ECG 12-LEAD IMPRESSION: Sinus rhythm Left atrial enlargement Nonspecific T wave changes Borderline prolonged QT interval No previous ECG available for comparison Electronically Signed On 10-23-2024 11:58:19 EDT by Antonia Neumann Normal [facility] [employer] [facility] No Panel InformationOrdered By: Antonia Neumann on 10-23-2024 P [place] 66 degrees [facility] Phone: GA Interval 153 ms [facility] Phone: QRS [place] 7 degrees [facility] Phone: QRSD Interval 100 ms [facility] Phone: QT Interval 427 ms [facility] Phone: QTC Interval 491 ms [facility] Phone: T Wave [place] 170 degrees [facility] Phone: [facility] Phone: No Panel Informationon 10-23 Sinus rhythm [...] On 10-23-2024 11:58:19 EDT by Antonia Neumann [facility] Interpretation and review of laboratory results Abnormal [facility] [employer] POCT ACT 320 High [facility] [employer] Performed by: [facility], [address] [place] [id number] CLIA ID: [id number] [facility] [employer] [facility] [facility] Blood Expiration Date [id number] [facility] [employer] Crossmatch interpretation COMP [facility] Dispense Status Crossmatch [facility] Product Blood Type 5100 [facility] PRODUCT CODE [id number] [facility] Unit ABO O [facility] Unit Number [id number] [facility] Unit Number [id number] [facility] RH Positive [facility] [employer] Unit Volume 300 mL [facility] Op Noteon 10-23-2024 Op Note CARDIOTHORACIC SURGERY--OPERATIVE NOTE Date: 10/23/24 Preoperative diagnosis: Severe symptomatic aortic stenosis Chronic diastolic congestive heart failure Frailty Postoperative diagnosis: Severe symptomatic aortic stenosis Chronic diastolic congestive heart failure Frailty Surgeon: Rocky Self DO Studio Manager: Memo Canas MD Procedure: Transcatheter aortic valve [...] Rocky Self DO FACS Cardiothoracic Surgery Normal [facility] Progress Noteon 10-23-[address] Canas contacted about pre-procedure steroid not ordered. No new orders at this time for 729 case. Normal [facility] Progress Note X-ray to bedside Normal [facility] Progress Note Called for chest X-RAY Normal [facility] US Heart TransthoracicOrdere d By: Marcin Echeverria on 10-23-2024 Aortic valve Mean systole pressure gradient by US.doppler derived full Bernoulli 3 mmHg [facility] Phone: [phone] Ascending Aorta 3.2 cm [facility] Phone: [phone] Ascending Aorta Index 1.84 cm/m2 [place] [employer] Phone: [phone] AV Area (Pre-TAVR) 0.6 cm2 [facility] [facility] Phone: [phone] AV Area by Peak Velocity 0.7 cm2 [facility] Phone: [phone] AV Area by VTI 0.6 cm2 [facility] Phone: [phone] AV Mean Gradient (Pre-TAVR) 25 mmHg [facility] [facility] Phone: [phone] AV Peak Gradient (Pre-TAVR) 15 mmHg [facility] Phone: [phone] AV Peak Velocity (Pre-TAVR) 2.5 m/s [facility] Phone: [phone] OMID/BSA Peak Velocity 0.4 cm2/m2 [place] Phone: [phone] OMID/BSA VTI 0.3 cm2/m2 [facility] Phone: Est. RA Pressure 8 mmHg [facility] [employer] Phone: [phone] LVOT Cardiac Output 2.7 liter/minute [facility] [employer] Phone: [phone] LVOT Mean Gradient 1 mmHg [facility] [employer] Phone: [phone] LVOT Peak Gradient 1 mmHg [facility] [employer] Phone: [phone] LVOT Peak Velocity 0.6 m/s [facility] [employer] Phone: [phone] LVOT VTI 10 cm [facility] [employer] Phone: [phone] MR VTI 169.2 cm [facility] [employer] Phone: [phone] MV Nyquist Velocity 36 cm/s [facility] [employer] Phone: [phone] MV Regurg Velocity PISA 5.3 m/s [facility] [employer] Phone: [phone] RVSP 50 mmHg [facility] [employer] Phone: [phone] TR Max Velocity 3.25 m/s [facility] [employer] Phone: [phone] TR Peak Gradient 42 mmHg [facility] [employer] Phone: [facility] [employer] Phone: Heart Transthoracicon Left Ventricle: Left ventricle [...] mmHg. CV CPACS Vital signsOrdered By: Clint Neuamnn on 10-23-2024 Heart rate 79 /min bpm [employer] Work Phone: XR CHEST 1 VIEWon 10-23-2024 XR CHEST 1 VIEW [facility] 1945 [id number] Date/Time: 10/23/2024 06:14 Procedure: XR CHEST [...] Electronically Signed Date/Time: 10/23/2024 10:03 AM EDT [facility] XR Chest Single viewon 10-23 1. Prominence of the cardiac silhouette. 2. Apparent small bilateral pleural effusions. Report Dictated on Electronically Signed By: Arelis Arauz MD Electronically Signed Date/Time: 10/23/2024 10:[address] [facility] Patient Name: LINDA TEJADA : 1945 Exam [...] fracture. VASCULATURE: Calcification of the thoracic aorta. [facility] Arelis Arauz M D - 10/23/2024 Patient [...] Electronically Signed Date/Time: 10/23/2024 10:03 AM EDT [facility] Radiology Study observation (narrative) [facility] XR Chest Single viewOrdered By: Arelis Arauz on 10-23-2024 [facility] [employer] Work Phone: 36on 10-22-2024 36 Letter refaxed to [phone] along w/ Kishore chart note. Confirmation 10/16/24 at 3:07p Confirmed 10/22/2024 at 3:59p [place] [address] Gregory 's office to follow-up on IV hydrocortisone dosing. Did not receive fax from last week, confirmed number of [phone]. Requested patient will need to have telephone visit at [address] Gregory to review instructions. Requested to have OV note and letter re-faxed to the above number. Will provide valve clinic fax number so Dr. Gregory's office can fax recommendations back [place] [address] Approved per fax. Scanned in under Media. Approval [id number] Sched on all 3 s and requested on Snapboard. [facility] 36on 10-18-2024 36 Labs scanned under Media [place] [address] Requested lab from [place]. She is faxing them to [place]. [facility] 36on 10-17-2024 36 Pending on Avail[employer] using documistic telephone visit from yesterday. Pending# [id number] [facility] 36on 10-16-2024 36 Letter and Kishore valdez note faxed to [phone] and confirmed Normal [facility] [address] Marco A gore Requesting fax regarding medication recommendation sent to [phone]. Will discuss with Jo Levy. Normal [facility] [address] Marco A major Placed on hold and disconnected. Will try again later. Normal [facility] 36 Reviewed plan for bridging with [facility] pharmacist. Patient's CrCl is 31. She advised lovenox 40 mg BID for bridging. -patient will take last dose of Eliquis on 10/19/24 -starting on 10/20/24, patient will start lovenox 40 mg BID -she will take her last dose of lovenox morning of 10/22. -No lovenox the evening of 10/22 or morning of 10/23 [facility] Progress Noteon 10-16-2024 Progress Note [facility] Telehealth Cardiology Note DATE of SERVICE: 10/16/24 TIME of SERVICE: 12:45 PM Chief Complaint: Chief Complaint Patient presents with Follow-up History of Present Illness: Linda Peralta is a 79 y.o. female known to Dr. Marte with a history for CAD, HPL, DVT, PE, Ritchie's disease, CKD s/p left nephrectomy (donated) and [...] dyspnea with moderate activity. No CAD per [facility]. Weight 156 lbs. Last clinic visit [...] redirect to the Timeline version of the [employer]. Limited Telehealth exam Constitutional: [x]Alert [x]Oriented [...] or 3b CKD (HCC) CKD followed by aed trainer Dr. Tarango in [place]. Most recent BMP showed SCr 1.61 with CrCl 31. 3. Acute deep vein thrombosis (DVT) of right lower extremity, unspecified vein (HCC) Questionable IVC filter. Currently on Eliquis. Per daughter, LE edema has improved. Post TAVR, will refer patient to Dr. Gaffney-vascular. We reached out to [facility] clinic for recommendations on bridging. [...] a day for 2 days only. 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 Will reach out to housing liaison Dr. Gregory in [place] ([phone]). for recommendations on IV hydrocortisone prior to [...] patient de (more content not included)... Normal [facility] 36on 10-15-2024 36 Lab order faxed to [place] [facility] [phone]/confirmed Normal [facility] 36 I need PB to please finish his chart note so I can submit this auth Normal [facility] Anion gap in Serum or Plasma on 10-15-2024 Anion gap [Moles/Vol] 12 mmol/L 5-15 [facility] BUN/creatinine ratioon 10-15 Urea nitrogen/Creatinine [Mass ratio] 20.3 mg/mg High 10-20 [facility] Basic Metabolic Profile (BMP )on 10-15-2024 BUN/CRE 20.3 RATIO High 10- [facility] Comment on above: Performed By: #### L 100.0500, L500.2500 ####[facility] [address] [place], [address] Calcium [Mass/Vol] 9.5 mg/dL Normal 7.6-11.0 [facility] Comment on above: Performed By: #### L 100.0500, L500.2500 ####[facility] [address] [place], [address] Chloride [Moles/Vol] 109 mmol/L High 98-108 [facility] Comment on above: Performed By: #### L 100.0500, L500.2500 ####[facility] [address] [place], [address] CO2 [Moles/Vol] 20.9 mmol/L Low 21.0-32.0 [facility] Comment on above: Performed By: #### L 100.0500, L500.2500 ####[facility] [address] [place], [address] Creatinine [Mass/Vol] 1.61 mg/dL High 0.70-1.20 [facility] Comment on above: Performed By: #### L 100.0500, L500.2500 ####[facility] [address] [place], [address] GAP 12 Normal 5-15 [facility] Comment on above: Performed By: #### L 100.0500, L500.2500 ####[facility] [address] [place], [address] GFR/1.73 sq M.predicted among non-blacks MDRD (S/P/Bld) [Vol rate/Area] 32 mL/min/{1.73_m2} Low >60 [facility] Comment on above: Result Comment: mL/m in/1.73m2 CKD-EPI Creatinine Equation (2020) Performed By: #### L 100.0500, L500.2500 ####[facility] [address] [place], [address] Glucose [Mass/Vol] 101 mg/dL High 70-99 [facility] Comment on above: Performed By: #### L 100.0500, L500.2500 ####[facility] [address] [place], [address] Potassium [Moles/Vol] 4.8 mmol/L Normal 3.3-5.1 [facility] Comment on above: Performed By: #### L 100.0500, L500.2500 ####[facility] [address] [place], [address] Sodium [Moles/Vol] 142 mmol/L Normal 133-145 [facility] Comment on above: Performed By: #### L 100.0500, L500.2500 ####[facility] [address] [place], [address] Urea nitrogen [Mass/Vol] 33 mg/dL High 4-19 [facility] Comment on above: Performed By: #### L 100.0500, L500.2500 ####[facility] [address] [place], [address] CBC-Complete Blood Cnt No Di ffon 10-15-2024 Erythrocyte distribution width (RBC) [Ratio] 15.2 % High 11.6-14.6 [facility] Comment on above: Performed By: #### L 100.0500, L500.2500 ####[facility] [address] [place], [address] Hematocrit (Bld) [Volume fraction] 47.1 % High 37-47 [facility] Comment on above: Performed By: #### L 100.0500, L500.2500 ####[facility] [address] [place], [address] Hemoglobin (Bld) [Mass/Vol] 14.9 g/dL Normal 12.0-15.0 [facility] Comment on above: Performed By: #### L 100.0500, L500.2500 ####[facility] [address] [place], [address] MCH (RBC) [Entitic mass] 29.9 pg Normal 27.0-32.0 [facility] Comment on above: Performed By: #### L 100.0500, L500.2500 ####[facility] [address] [place], [address] MCHC (RBC) [Mass/Vol] 31.6 g/dL Low 32-36 [facility] Comment on above: Performed By: #### L 100.0500, L500.2500 ####[facility] [address] [place], [address] MCV (RBC) [Entitic vol] 94.4 fL Normal 81-99 [facility] Comment on above: Performed By: #### L 100.0500, L500.2500 ####[facility] [address] [place], [address] Platelet mean volume (Bld) [Entitic vol] 12.8 fL High 6.2-12.0 [facility] Comment on above: Performed By: #### L 100.0500, L500.2500 ####[facility] [address] [place], [address] Platelets (Bld) [#/Vol] 179 10*3/uL Normal 150-450 [facility] Comment on above: Performed By: #### L 100.0500, L500.2500 ####[facility] [address] [place], [address] RBC (Bld) [#/Vol] 4.99 10*6/uL Normal 4.2-5.4 [facility] Comment on above: Performed By: #### L 100.0500, L500.2500 ####[facility] [address] [place], [address] RDW SD 53.1 fl High 35.1-43.9 [facility] Comment on above: Performed By: #### L 100.0500, L500.2500 ####[facility] [address] [place], [address] WBC (Bld) [#/Vol] 9.9 10*3/uL Normal 4.4-11.0 [facility] Comment on above: Performed By: #### L 100.0500, L500.2500 ####[facility] [address] [facility], [address] Carbon dioxide, total [Moles /volume] in Central venous bloodon 10-15-2024 CO2 [Moles/Vol] 20.9 mmol/L Low 21.0-32.0 [facility] Chloride assayon 10-15-2024 Chloride [Moles/Vol] 109 mmol/L High 98-108 [facility] Erythrocyte distribution wid th ratioon 10-15-2024 Erythrocyte distribution width (RBC) [Ratio] 15.2 % High 11.6-14.6 [facility] Erythrocyte distribution wid th standard deviationon 10-15-2024 Erythrocyte distribution width (RBC) [Ratio] 53.1 fl High 35.1-43.9 [facility] Glomerular filtration rate ( GFR) estimation/1.73 sq m using serum, plasma, or whole bon 10-15-2024 GFR/1.73 sq M.predicted among non-blacks MDRD (S/P/Bld) [Vol rate/Area] 32 mL/min/{1.73_m2} Low >60 [facility] Comment on above: mL/min/1.73m2 CKD-EP I Creatinine Equation (2020) Hematocrit Auto (Bld) [Volum e fraction]on 10-15-2024 Hematocrit (Bld) [Volume fraction] 47.1 % High 37-47 [facility] Hemoglobin measurementon Hemoglobin (Bld) [Mass/Vol] 14.9 g/dL 12.0-15.0 [facility] MCV (mean corpuscular volume ) determinationon 10-15-2024 MCV (RBC) [Entitic vol] 94.4 fL 81-99 [facility] Mean corpuscular hemoglobin (MCH) determinationon 10-15-2024 MCH (RBC) [Entitic mass] 29.9 pg 27.0-32.0 [facility] Mean corpuscular hemoglobin concentration (MCHC) determinationon 10-15-2024 MCHC (RBC) [Mass/Vol] 31.6 g/dL Low 32-36 [facility] Mean platelet volume determi nationon 10-15-2024 Platelet mean volume (Bld) [Entitic vol] 12.8 fL High 6.2-12.0 [facility] Platelet counton 10-15-2024 Platelets (Bld) [#/Vol] 179 10*3/uL 150-450 [facility] Potassium measurement (mass/ volume)on 10-15-2024 Potassium (Unsp spec) [Mass/Vol] 4.8 mmol/L 3.3-5.1 [facility] RBC Auto (Bld) [#/Vol]on RBC (Bld) [#/Vol] 4.99 10*6/uL 4.2-5.4 [facility] Serum creatinine measurement (mass/volume)on 10-15-2024 Creatinine [Mass/Vol] 1.61 mg/dL High 0.70-1.20 [facility] Serum glucose measurement (m ass/volume)on 10-15-2024 Glucose [Mass/Vol] 101 mg/dL High 70-99 [facility] Serum or plasma calcium scott urement (mass/volume)on 10-15-2024 Calcium [Mass/Vol] 9.5 mg/dL 7.6-11.0 [facility] Serum or plasma urea nitroge n measurement (mass/volume)on 10-15-2024 Urea nitrogen [Mass/Vol] 33 mg/dL High 4-19 [facility] Sodium levelon 10-15-2024 Sodium [Moles/Vol] 142 mmol/L 133-145 [facility] White blood cell (WBC) count on 10-15-2024 WBC (Bld) [#/Vol] 9.9 10*3/uL 4.4-11.[address] 10-14-2024 36 Spoke with patient, she will have labs drawn tomorrow at [place]. Will have laboratory secretary fax lab orders over [place] [address] Patient is scheduled for TAVR on 10/23/24. -Reviewed bridging with [facility] pharmacist. Patient current CrCl is [...] morning. (Will review this with Dr. Canas) [place] [address]on 10-10-2024 36 Results scanned unde r Media Normal [facility] 36 I called and spoke dana BarreraSalima and she is faxing result [place] [address] Reviewed with Butch carlson APRN as patient completed renal US, plan if BMP shows stable function to proceed with TAVR. BMP results from 10/03/24 at [place] show creatinine 1.82 with GRF 28. Will have DISEASE EDUCATION SPECIALIST review and place TAVR case request if appropriate [place] [address]on 10-08-2024 36 I need PB chart note finished from 09/03/24 to do this auth [place] [address]on 10-07-2024 36 I called [place] [facility] and l/m to send me results [facility] Anion gap in Serum or Plasma Ordered By: Basim Joel on 10-03-2024 Anion gap [Moles/Vol] 13 mmol/L 5-15 [facility] BUN/creatinine ratioOrdered By: Basim Joel on 10-03-2024 Urea nitrogen/Creatinine [Mass ratio] 23.9 mg/mg High 10-20 [facility] Basic Metabolic Profile (BMP )on 10-03-2024 BUN/CRE 23.9 RATIO High 10-20 [facility] Comment on above: Performed By: #### L 500.2500 ####[facility] [address] [place], [address] Calcium [Mass/Vol] 10.2 mg/dL Normal 7.6-11.0 [facility] Comment on above: Performed By: #### L 500.2500 ####[facility] [address] [place], [address] Chloride [Moles/Vol] 106 mmol/L Normal 98-108 [facility] Comment on above: Performed By: #### L 500.2500 ####[facility] [address] [place], [address] CO2 [Moles/Vol] 22.6 mmol/L Normal 21.0-32.0 [facility] Comment on above: Performed By: #### L 500.2500 ####[facility] [address] [place], [address] Creatinine [Mass/Vol] 1.82 mg/dL High 0.70-1.20 [facility] Comment on above: Performed By: #### L 500.2500 ####[facility] [address] [place], [address] GAP 13 Normal 5-15 [facility] Comment on above: Performed By: #### L 500.2500 ####[facility] [address] [place], [address] GFR/1.73 sq M.predicted among non-blacks MDRD (S/P/Bld) [Vol rate/Area] 28 mL/min/{1.73_m2} Low >60 [facility] Comment on above: Result Comment: mL/m in/1.73m2 CKD-EPI Creatinine Equation (2020) Performed By: #### L 500.2500 ####[facility] [address] [place], [address] Glucose [Mass/Vol] 77 mg/dL Normal 70-99 [facility] Comment on above: Performed By: #### L 500.2500 ####[facility] [address] [place], [address] Potassium [Moles/Vol] 5.5 mmol/L High 3.3-5.1 [facility] Comment on above: Performed By: #### L 500.2500 ####[facility] [address] [place], [address] Sodium [Moles/Vol] 142 mmol/L Normal 133-145 [facility] Comment on above: Performed By: #### L 500.2500 ####[facility] [address] [place], [address] Urea nitrogen [Mass/Vol] 44 mg/dL High 4-19 [facility] Comment on above: Performed By: #### L 500.2500 ####[facility] [address] [place], [address] Carbon dioxide, total [Moles /volume] in Central venous bloodOrdered By: Basim Joel on 10-03-2024 CO2 [Moles/Vol] 22.6 mmol/L 21.0-32.0 [facility] Chloride assayOrdered By: Nerissa Joel on 10-03-2024 Chloride [Moles/Vol] 106 mmol/L 98-108 [facility] Glomerular filtration rate ( GFR) estimation/1.73 sq m using serum, plasma, or whole bOrdered By: Basim Joel on 10-03-2024 GFR/1.73 sq M.predicted among non-blacks MDRD (S/P/Bld) [Vol rate/Area] 28 mL/min/{1.73_m2} Low >60 [facility] Comment on above: mL/min/1.73m2 CKD-EP I Creatinine Equation (2020) Potassium measurement (mass/ volume)Ordered By: Basim Joel on 10-03-2024 Potassium (Unsp spec) [Mass/Vol] 5.5 mmol/L High 3.3-5.1 [facility] Serum creatinine measurement (mass/volume)Ordered By: Basim Joel on 10-03-2024 Creatinine [Mass/Vol] 1.82 mg/dL High 0.70-1.20 [facility] Serum glucose measurement (m ass/volume)Ordered By: Basim Joel on 10-03-2024 Glucose [Mass/Vol] 77 mg/dL 70-99 [facility] Serum or plasma calcium scott urement (mass/volume)Ordered By: Basim Joel on 10-03-2024 Calcium [Mass/Vol] 10.2 mg/dL 7.6-11.0 [facility] Serum or plasma urea nitroge n measurement (mass/volume)Ordered By: Basim Joel on 10-03-2024 Urea nitrogen [Mass/Vol] 44 mg/dL High 4-19 [facility] Sodium levelOrdered By: David Joel on 10-03-2024 Sodium [Moles/Vol] 142 mmol/L 133-145 [facility] 36on 10-02-2024 36 Order faxed to and confirmed Normal [facility] 36 Spoke with patient regarding US kidney. Repeat BMP . Please send lab [facility] Canas Normal [facility] Cardiac Cath Diagnosticon Cardiac Cath Diagnostic Normal [facility] ECG 12 lead - CLINIC PERFORM EDon 09-29-2024 Sinus Rhythm -occasi onal ectopic ventricular beat -Combined atrial enlargement. -Nonspecific ST depression + Nonspecific T-abnormality -Nondiagnostic. [facility] 36on 09-26-2024 36 BMP review. Bump in BUN/creat after 3 days of 40 mg po Lasix. Spoke with daughter. Weight down to 144 #, swelling, improved, dyspnea improved. Will use Lasix 20 mg po for weight gain greater than 3 lbs overnight or 5lbs in a week. Daughter will relay recommendations. Normal [facility] Basic metabolic 2000 panelon 09-26-2024 Anion gap [Moles/Vol] 16 mmol/L High 8-15 [facility] Comment on above: Order Comment: Speci men Type: BLOOD SPECIMENOrdering Facility: [facility] Address: [address] [place] [address] Performed By: #### 2 4321-2 ####[facility] LIVE MILLTOWNCLIA [id number] [place] [address] [place] Calcium [Mass/Vol] 10.0 mg/dL Normal 8.5-10.2 [facility] Comment on above: Order Comment: Speci men Type: BLOOD SPECIMENOrdering Facility: [facility] Address: [address] [place] [address] Performed By: #### 2 4321-2 ####[facility]IA [id number] [place] [address] [place] Chloride [Moles/Vol] 98 mmol/L Normal 98-107 [facility] Comment on above: Order Comment: Speci men Type: BLOOD SPECIMENOrdering Facility: [facility] Address: [address] [place] [address] Performed By: #### 2 4321-2 ####[facility] LIVE MILLWNCLIA [id number] [place] [address] [place] CO2 [Moles/Vol] 24 mmol/L Normal 22-30 [facility] Comment on above: Order Comment: Speci men Type: BLOOD SPECIMENOrdering Facility: [facility] Address: [address] [place] [address] Performed By: #### 2 4321-2 ####[facility] [id number] [place] [address] [place] Creatinine [Mass/Vol] 2.12 mg/dL High 0.58-0.96 [facility] Comment on above: Order Comment: Speci men Type: BLOOD SPECIMENOrdering Facility: [facility] Address: [address] [place] [address] Performed By: #### 2 4321-2 ####[facility] [id number] [place] [address] [place] eGFRcr SerPlBld CKD-EPI 2020 23 mL/min/1.73m??? Low >=60 [facility] Comment on above: Order Comment: Jody fairbanks Type: BLOOD SPECIMENOrdering Facility: [facility] Address: [address] [place] [address] Result Comment: Marisabel mated Glomerular Filtration Rate [...] actual GFR. Performed By: #### 2 4321-2 ####[facility] [id number] [place] [address] [place] Glucose [Mass/Vol] 106 mg/dL High 74-99 [facility] Comment on above: Order Comment: Jody fairbanks Type: BLOOD SPECIMENOrdering Facility: [facility] Address: [address] [place] [address] Result Comment: The [place] Diabetes Association (ADA) provides guidance for cutoff [...] Standards of Medical Care in Diabetes 2016, [place] [employer] Association. Diabetes Care. 2016.39(Suppl 1). Performed By: #### 2 4321-2 ####[facility] [id number] [place] [address] [place] Potassium [Moles/Vol] 4.1 mmol/L Normal 3.7-5.1 [facility] Comment on above: Order Comment: Speci men Type: BLOOD SPECIMENOrdering Facility: [facility] Address: [address] [place] [address] Performed By: #### 2 4321-2 ####[facility] LIVE JACKSONWKEYLALIA [id number] [place] [address] [place] Sodium [Moles/Vol] 138 mmol/L Normal 136-144 [facility] Comment on above: Order Comment: Speci men Type: BLOOD SPECIMENOrdering Facility: [facility] Address: [address] [place] [address] Performed By: #### 2 4321-2 ####[facility] LIVE NERINCLIA [id number] [place] [address] [place] Urea nitrogen [Mass/Vol] 48 mg/dL High 7-21 [facility] Comment on above: Order Comment: Speci men Type: BLOOD SPECIMENOrdering Facility: [facility] Address: [address] [place] [address] Performed By: #### 2 4321-2 ####[facility] LIVE JACKSONWNCLIA [id number] [place] [address] [place] US KIDNEY/BLADDERon 09-27-19 25 US KIDNEY/BLADDER * * *Final Report* * * DATE OF EXAM: Sep 26 2024 2:19PM [facility] 1055 - US KIDNEY/BLADDER / PROCEDURE REASON: [...] Normal sonographic appearance. IMPRESSION: Right renal cysts. Vocational Aide: STEPAN Transcribe Date/Time: Sep 29 2024 8:00P Dictated by : ANDI COELHO MD This examination was interpreted and the report reviewed and electronically signed by: ANDI COELHO MD on Sep 29 2024 8:01PM EST [id number] Normal [facility] BACTERIAL CULTURE, URINEOrde red By: Nathaniel Henriquez on 09-20-2024 Bacteria identified Cx Nom (U) No growth (<1,000 CFU/ml) [facility] Bacteria identified Cx Nom ( U)Ordered By: Nathaniel Henriquez on 09-20-2024 Interpretation and review of laboratory results Normal [facility] 29on 09-19-2024 29 Addended by: BASIM JOEL on: 09/23/2024 01:57 PM Modules accepted: Orders Normal [facility] SHS BLADDER SCANon 09-19-2024 PVR 66 Cc [facility] Bacteria Ur Culton 5 Bacteria identified Cx Nom (U) CULTURE, URINE: No growth (<1,000 CFU/ml) Normal [facility] Comment on above: Performed By: #### 6 30-4 #### [facility] CLIA [id number] [address] STATES OF [facility] CNOVon 09-19-2024 CNOV Office Visit (UROLAE ) -------- LINDA PERALTA ([id number]) 1945 F Date Time Provider Department 09/19/24 11:00 AM ARELIS SMITH During your visit today, we recorded the following information about you: Blood pressure Weight Height 124/76 70.3 kg 1.575 m Arelis Smith APRN.PILL PACKER 09/20/2024 1:00 PM Signed [facility] [place] UROL [place] EXCHANGE NEW PATIENT UROLOGY VISIT 09/19/2024 10:34 AM PATIENT NAME: Linda Peralta DATE OF : 1945 TODAY'S DATE: 09/19/2024 Referring Provider: Rocio Elizalde [address] [facility] [address] Referring Note Reviewed: Yes Chief Complaint: recurrent [...] Non STEMI. Cardiac cath normal. 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Ritchie's disease Cystocele, midline 07/23/2007 Diverticulosis of colon [...] W/COLLJ SPEC WHEN PFRMD 03/26/2010 Inpatient at [facility] ESOPHAGOGASTRODUODENOSCO PY TRANSORAL DIAGNOSTIC 02/2002 EGD ESOPHAGOGASTRODUODENOSCO PY TRANSORAL DIAGNOSTIC 05/01/2009 EGD ESOPHAGOGASTRODUODENOSCO PY TRANSORAL DIAGNOSTIC (more content not included)... Normal [facility] Jayce 09-19-2024 ELLIE Telephone (UROLAE) -------- LINDA PERALTA ([id number]) 1945 F Date Time Provider Department 09/19/24 [...] [I25.10] 04/25/2009 DVT (deep venous thrombosis) ([facility]) [I82.409] 03/23/2012 01/23/2024 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 [...] Status:Closed by SINDI ANGELES on 09/23/24 Normal [facility] CT ANGIOGRAM TAVRon 09-20-19 CT ANGIOGRAM TAVR Patient Name: LINDA TEJADA : 1945 [id number] Exam Date/Time: 09/19/2024 12:47 Procedure: CT ANGIOGRAM [...] 09/19/2024 11:00 PM EDT --------ORIGINAL REPORT -------- [facility] Cardiovascular CTA Indication: 79 year-old woman with severe aortic stenosis, being evaluated for transcatheter aortic valve implantation. Technique: Computed tomography of the heart, thoracoabdominal aorta, and iliofemoral system was performed using a [employer] Aquilion One 320 detector scanner. Images were [...] the calcified. Predicted deployment angle (3-cusp view): SOMALI 16, DIRECTOR OF HEALTH CARE MARKETING 3 Aortic Annulus: Dimensions: 2.56 x 1.98 [...] EDT Patient Name: LINDA PERALTA : 1945 [id number] Exam Date/Time: 09/19/2024 12:47 Procedure: CT ANGIOGRAM TAVR Ordering Provider: GUPTA MEGGAN Reason For Exam: Aortic valve replacement (TAVR), pre-op eval [facility]ovascular CTA Indication: 79 year-old woman with severe aortic stenosis, being evaluated for transcatheter aortic valve implantation. Technique: Computed tomography of the heart, thoracoabdominal aorta, and iliofemoral system was performed using a [employer] Aquilion One 320 detector scanner. Images were [...] normal in (more content not included)... Normal [facility] CT Chest WO and CT angiogram Coronary arteries W contrast Lizzy 09-19-2024 Addendum by Nixon Abarca DO on 09/19/2024 11:00 PM EDT Patient Name: LINDA PERALTA : 1945 [id number] Exam Date/Time: 09/19/2024 12:47 Procedure: CT ANGIOGRAM [...] 09/19/2024 11:00 PM EDT --------ORIGINAL REPORT -------- [facility] Cardiovascular CTA Indication: 79 year-old woman with severe aortic stenosis, being evaluated for transcatheter aortic valve implantation. Technique: Computed tomography of the heart, thoracoabdominal aorta, and iliofemoral system was performed using a [employer] Aquilion One 320 detector scanner. Images were [...] the calcified. Predicted deployment angle (3-cusp view): SOMALI 16, DIRECTOR OF HEALTH CARE MARKETING 3 Aortic Annulus: Dimensions: 2.56 x 1.98 [...] Electronically Signed Date/Time: 09/19/2024 4:29 PM EDT [facility] Patient Name: LINDA TEJADA : 1945 [id number] Exam Date/Time: 09/19/2024 12:47 Procedure: CT ANGIOGRAM TAVR Ordering Provider: GUPTA MEGGAN Reason For Exam: Aortic valve replacement (TAVR), pre-op eval [facility] Cardiovascular CTA Indication: 79 year-old woman with severe aortic stenosis, being evaluated for transcatheter aortic valve implantation. Technique: Computed tomography of the heart, thoracoabdominal aorta, and iliofemoral system was performed using a [employer] Aquilion One 320 detector scanner. Images were [...] the calcified. Predicted deployment angle (3-cusp view): SOMALI 16, DIRECTOR OF HEALTH CARE MARKETING 3 Aortic Annulus: Dimensions: 2.56 x 1.98 [...] 09/19/2024 Patient Name: LINDA PERALTA : 1945 [id number] Exam Date/Time: 09/19/2024 12:47 Procedure: CT ANGIOGRAM TAVR Ordering Provider: GUPTA MEGGAN Reason For Exam: Aortic valve replacement (TAVR), pre-op eval [facility] Cardiovascular CTA Indication: 79 year-old woman with severe aortic stenosis, being evaluated for transcatheter aortic valve implantation. Technique: Computed tomography of the heart, thoracoabdominal aorta, and iliofemoral system was performed using a [employer] Aquilion One 320 detector scanner. Images were [...] the calcified. Predicted deployment angle (3-cusp view): SOMALI 16, DIRECTOR OF HEALTH CARE MARKETING 3 Aortic Annulus: Dimensions: 2.56 x 1.98 [...] Electronically Signed Date/Time: 09/19/2024 4:29 PM EDT [facility]iology Study observation (narrative) [facility] CT Chest WO and CT angiogram Coronary arteries W contrast IVOrdered By: Ben Elias on 09-19-2024 [employer] Work Phone: Office Visiton 09-19-2024 Follow-up visit [id number] Ingris Peralta 1945 F Date Provider Department Center 09/19/2024 26689-KCREBABASIM JOEL [facility] SHM[facility] [address] Family History Problem Relation Age of Onset Heart attack Mother Stroke Father Family Status - Relation Status Age at Mother Father Level of Service:68265 GA OFFICE/OUTPATIENT ESTABLISHED MOD MDM 30 MIN Reason for Visit and Comments: Cardiac Valve Problem [1334] Normal [employer] [facility] Progress Noteon 09-19-2024 Progress Note [facility] [place] [address] [place] [address] Dept: [phone] Dept Visit type: Established : 1945 Reason [...] Dr. Gaffney- vascular. Will reach out to [facility] for bridging recommendation 3. Acute [...] BMP 09/26. Plan to refer to Dr. Gfafney for suspected IVC filter clotting off. Has renal ultrasound scheduled for 09/26. Ua studies negative per patient account. Consider referral to ID, pending renal ultrasound result. mm Reviewed with Dr. Canas Subjective Ms Peralta is an 79 yr old female known to Dr. Marte with a PMH for CAD, HPL, DVT, PE, Ritchie's disease, CKD s/p left nephrectomy (donated) and [...] dyspnea with moderate activity. No CAD per [facility]. Weight 156 lbs. Last clinic visit [...] specialty: Independent interpretation of tests: Basim Joel, DISEASE EDUCATION SPECIALIST - PILL PACKER [1] Allergies Allergen Reactions Amlodipine Swelling Ciprofloxacin [...] (more content not included)... Normal [facility] SHS UA DIP, URINE (POC)on 2024 BILIRUBIN UA (POCT) Negative Negative [facility] CLARITY UA (POCT) Clear [facility] COLOR UA (POCT) Yellow [facility] GLUCOSE UA (POCT) Negative Negative mg/dL [facility] Hemoglobin Ql (U) Negative Negative [facility] Interpretation and review of laboratory results Abnormal [facility] KETONE UA (POCT) Negative Negative mg/dL [facility] LEUKOCYTES UA (POCT) Small Abnormal Negative [facility] NITRITE UA (POCT) Negative Negative [facility] PH UA (POCT) 6 4.5 - 8.0 [facility] Protein Ql (U) Negative Negative mg/dL [facility] SPECIFIC GRAVITY UA (POCT) 1.01 1.005 - 1.030 [facility] UROBILINOGEN UA (POCT) 0.2 Camelia l E.U./dL [facility] Location:[facility], [address] [place] [address], [address] [place] [address] POINT OF CARE [facility]2024 CNPN Telephone (INTMWS) -------- LINDA PERALTA ([id number]) 1945 F Date Time Provider Department 09/12/24 [...] [N39.0] Order(s):CONSULT TO UROLOGY [9041] Order #: [id number]: 1 FUTURE Prescriptions as of 09/19/2024 - [...] [I25.10] 04/25/2009 DVT (deep venous thrombosis) ([facility]) [I82.409] 03/23/2012 01/23/2024 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 [...] Status:Closed by AMA DIAZ on 09/19/24 Normal [facility] Absolute lymphocyte counton 09-10-2024 Lymphocytes Auto (Unsp spec) [#/Vol] 2.14 10*3/uL 0.83-4.51 [facility] Absolute neutrophil counton 09-10-2024 Neutrophils (Bld) [#/Vol] 5.9 10*3/uL 2.0-7.7 [facility] Anion gap in Serum or Plasma on 09-10-2024 Anion gap [Moles/Vol] 13 mmol/L 5-15 [facility] Automated lymphocyte count a s percentage of total leukocyteson 09-10-2024 Lymphocytes/100 WBC Auto (Unsp spec) 22.3 % 19-41 [facility] BUN/creatinine ratioon 09-10 Urea nitrogen/Creatinine [Mass ratio] 19.7 mg/mg 10- [facility] Basic Metabolic Profile (BMP )on 09-10-2024 BUN/CRE 19.7 RATIO Normal - [facility] Comment on above: Performed By: #### L 100.0100, L500.2500 ####[facility] [address] [place], [address] Calcium [Mass/Vol] 9.5 mg/dL Normal 7.6-11.0 [facility] Comment on above: Performed By: #### L 100.0100, L500.2500 ####[facility] [address] [place], [address] Chloride [Moles/Vol] 108 mmol/L Normal 98-108 [facility] Comment on above: Performed By: #### L 100.0100, L500.2500 ####[facility] [address] [place], [address] CO2 [Moles/Vol] 21.8 mmol/L Normal 21.0-32.0 [facility] Comment on above: Performed By: #### L 100.0100, L500.2500 ####[facility] [address] [place], [address] Creatinine [Mass/Vol] 1.39 mg/dL High 0.70-1.20 [facility] Comment on above: Performed By: #### L 100.0100, L500.2500 ####[facility] [address] [place], [address] GAP 13 Normal 5-15 [facility] Comment on above: Performed By: #### L 100.0100, L500.2500 ####[facility] [address] [place], [address] GFR/1.73 sq M.predicted among non-blacks MDRD (S/P/Bld) [Vol rate/Area] 38 mL/min/{1.73_m2} Low >60 [facility] Comment on above: Result Comment: mL/m in/1.73m2 CKD-EPI Creatinine Equation (2020) Performed By: #### L 100.0100, L500.2500 ####[facility] [address] [place], [address] Glucose [Mass/Vol] 76 mg/dL Normal 70-99 [facility] Comment on above: Performed By: #### L 100.0100, L500.2500 ####[facility] [address] [place], [address] Potassium [Moles/Vol] 4.6 mmol/L Normal 3.3-5.1 [facility] Comment on above: Result Comment: Hemo lysis present, Results??could be affected.?? Performed By: #### L 100.0100, L500.2500 ####[facility] [address] [place], [address] Sodium [Moles/Vol] 142 mmol/L Normal 133-145 [facility] Comment on above: Performed By: #### L 100.0100, L500.2500 ####[facility] [address] [place], [address] Urea nitrogen [Mass/Vol] 27 mg/dL High 4-19 [facility] Comment on above: Performed By: #### L 100.0100, L500.2500 ####[facility] [address] [place], [address] Basophil percentageon 09-10- 2024 Basophils/100 WBC (Bld) 0.6 % 0-1 [facility] CBC W/Diff, Automatedon 08-21 Absolute Lymph 2.14 X10 3/uL Normal 0.83-4.51 [facility] Comment on above: Performed By: #### L 100.0100, L500.2500 ####[facility] [address] [place], [address] Absolute Neut 5.9 X10 3/uL Normal 2.0-7.7 [facility] Comment on above: Performed By: #### L 100.0100, L500.2500 ####[facility] [address] [place], [address] Basophils/100 WBC (Bld) 0.6 % Normal 0-1 [facility] Comment on above: Performed By: #### L 100.0100, L500.2500 ####[facility] [address] [place], [address] Eosinophils/100 WBC (Bld) 4.5 % Normal 0-5 [facility] Comment on above: Performed By: #### L 100.0100, L500.2500 ####[facility] [address] [place], [address] Erythrocyte distribution width (RBC) [Ratio] 16.3 % High 11.6-14.6 [facility] Comment on above: Performed By: #### L 100.0100, L500.2500 ####[facility] [address] [place], [address] Hematocrit (Bld) [Volume fraction] 42.7 % Normal 37-47 [facility] Comment on above: Performed By: #### L 100.0100, L500.2500 ####[facility] [address] [place], [address] Hemoglobin (Bld) [Mass/Vol] 13.7 g/dL Normal 12.0-15.0 [facility] Comment on above: Performed By: #### L 100.0100, L500.2500 ####[facility] [address] [place], [address] IG% 1.800 High 0.0-0.9 [facility] Comment on above: Result Comment: IG% - Immature Granulocytes (promyelocytes, myelocytes andmetamyelocytes) > 1% indicates that a LEFT SHIFT is Present. Performed By: #### L 100.0100, L500.2500 ####[facility] [address] [place], [address] Lymphocytes/100 WBC (Bld) 22.3 % Normal 19-41 [facility] Comment on above: Performed By: #### L 100.0100, L500.2500 ####[facility] [address] [place], [address] MCH (RBC) [Entitic mass] 30.5 pg Normal 27.0-32.0 [facility] Comment on above: Performed By: #### L 100.0100, L500.2500 ####[facility] [address] [place], [address] MCHC (RBC) [Mass/Vol] 32.1 g/dL Normal 32-36 [facility] Comment on above: Performed By: #### L 100.0100, L500.2500 ####[facility] [address] [place], [address] MCV (RBC) [Entitic vol] 95.1 fL Normal 81-99 [facility] Comment on above: Performed By: #### L 100.0100, L500.2500 ####[facility] [address] [place], [address] Monocytes/100 WBC (Bld) 9.1 % Normal 0-10 [facility] Comment on above: Performed By: #### L 100.0100, L500.2500 ####[facility] [address] [place], [address] Neutrophils/100 WBC (Bld) 61.7 % Normal 47-70 [facility] Comment on above: Performed By: #### L 100.0100, L500.2500 ####[facility] [address] [place], [address] Nucleated RBC (Bld) [#/Vol] 0 10*3/uL Normal 0-5 [facility] Comment on above: Performed By: #### L 100.0100, L500.2500 ####[facility] [address] [place], [address] Platelet mean volume (Bld) [Entitic vol] 11.6 fL Normal 6.2-12.0 [facility] Comment on above: Performed By: #### L 100.0100, L500.2500 ####[facility] [address] [place], [address] Platelets (Bld) [#/Vol] 234 10*3/uL Normal 150-450 [facility] Comment on above: Performed By: #### L 100.0100, L500.2500 ####[facility] [address] [place], [address] RBC (Bld) [#/Vol] 4.49 10*6/uL Normal 4.2-5.4 [facility] Comment on above: Performed By: #### L 100.0100, L500.2500 ####[facility] [address] [place], [address] RDW SD 57.0 fl High 35.1-43.9 [facility] Comment on above: Performed By: #### L 100.0100, L500.2500 ####[facility] [address] [place], [address] WBC (Bld) [#/Vol] 9.6 10*3/uL Normal 4.4-11.0 [facility] Comment on above: Performed By: #### L 100.0100, L500.2500 ####[facility] [address] [place], [address] Carbon dioxide, total [Moles /volume] in Central venous bloodon 09-10-2024 CO2 [Moles/Vol] 21.8 mmol/L 21.0-32.0 [facility] Chloride assayon 09-10-2024 Chloride [Moles/Vol] 108 mmol/L 98-108 [facility] Eosinophil percentageon 08-21 Eosinophils/100 WBC (Bld) 4.5 % 0-5 [facility] Erythrocyte distribution wid th ratioon 09-10-2024 Erythrocyte distribution width (RBC) [Ratio] 16.3 % High 11.6-14.6 [facility] Erythrocyte distribution wid th standard deviationon 09-10-2024 Erythrocyte distribution width (RBC) [Ratio] 57.0 fl High 35.1-43.9 [facility] Glomerular filtration rate ( GFR) estimation/1.73 sq m using serum, plasma, or whole bon 09-10-2024 GFR/1.73 sq M.predicted among non-blacks MDRD (S/P/Bld) [Vol rate/Area] 38 mL/min/{1.73_m2} Low >60 [facility] Comment on above: mL/min/1.73m2 CKD-EP I Creatinine Equation (2020) Hematocrit Auto (Bld) [Volum e fraction]on 09-10-2024 Hematocrit (Bld) [Volume fraction] 42.7 % 37-47 [facility] Hemoglobin measurementon Hemoglobin (Bld) [Mass/Vol] 13.7 g/dL 12.0-15.0 [facility] Immature granulocytes/100 WB C Auto (Bld)on 09-10-2024 Immature granulocytes/100 WBC (Bld) 1.800 % High 0.0-0.9 [facility] Comment on above: IG% - Immature Granu locytes (promyelocytes, myelocytes and metamyelocytes) > 1% indicates that a LEFT SHIFT is Present. MCV (mean corpuscular volume ) determinationon 09-10-2024 MCV (RBC) [Entitic vol] 95.1 fL 81-99 [facility] Mean corpuscular hemoglobin (MCH) determinationon 09-10-2024 MCH (RBC) [Entitic mass] 30.5 pg 27.0-32.0 [facility] Mean corpuscular hemoglobin concentration (MCHC) determinationon 09-10-2024 MCHC (RBC) [Mass/Vol] 32.1 g/dL 32-36 [facility] Mean platelet volume determi nationon 09-10-2024 Platelet mean volume (Bld) [Entitic vol] 11.6 fL 6.2-12.0 [facility] Monocyte percentageon 2024 Monocytes/100 WBC (Bld) 9.1 % 0-10 [facility] Neutrophil percentageon 08-21 Neutrophils/100 WBC (Bld) 61.7 % 47-70 [facility] Nucleated red blood cell per centageon 09-10-2024 Nucleated RBC/100 WBC (Bld) [Ratio] 0 % 0-5 [facility] Platelet counton 09-10-2024 Platelets (Bld) [#/Vol] 234 10*3/uL 150-450 [facility] Potassium measurement (mass/ volume)on 09-10-2024 Potassium (Unsp spec) [Mass/Vol] 4.6 mmol/L 3.3-5.1 [facility] Comment on above: Hemolysis present, R esults could be affected. RBC Auto (Bld) [#/Vol]on RBC (Bld) [#/Vol] 4.49 10*6/uL 4.2-5.4 [facility] Serum creatinine measurement (mass/volume)on 09-10-2024 Creatinine [Mass/Vol] 1.39 mg/dL High 0.70-1.20 [facility] Serum glucose measurement (m ass/volume)on 09-10-2024 Glucose [Mass/Vol] 76 mg/dL 70-99 [facility] Serum or plasma calcium scott urement (mass/volume)on 09-10-2024 Calcium [Mass/Vol] 9.5 mg/dL 7.6-11.0 [facility] Serum or plasma urea nitroge n measurement (mass/volume)on 09-10-2024 Urea nitrogen [Mass/Vol] 27 mg/dL High 4-19 [facility] Sodium levelon 09-10-2024 Sodium [Moles/Vol] 142 mmol/L 133-145 [facility] White blood cell (WBC) count on 09-10-2024 WBC (Bld) [#/Vol] 9.6 10*3/uL 4.4-11.0 [facility] Office Visiton 09-03-2024 Follow-up visit [id number] Ingris Peralta 1945 Provider Department Center 09/03/2024 [id number] DE LA CRUZ [facility] SHM[facility] [address] Ar Family History Problem Relation Age of Onset Heart attack Mother Stroke Father Family Status - Relation Status Age at Mother Father Level of Service:91269 [place] OFFICE/OP CONSLTJ NEW/EST PT HIGH MDM 55 MINUTES Reason for Visit and Comments: New Patient [542] Cardiac Valve Problem [1334] - Heart valve clinic [facility] Follow-up visit [id number] Ingris Peralta 1945 Date Provider Department Center 09/03/2024 [id number] CANAS [facility] SH[facility] 95 Ar Family History Problem Relation Age of Onset Heart attack Mother Stroke Father Family Status - Relation Status Age at Mother Father Level of Service:85649 GA OFFICE/OUTPATIENT ESTABLISHED HIGH MDM 40 MIN Reason for Visit and Comments: New Patient [542] Cardiac Valve Problem [1334] - Heart valve clinic [facility] Progress Noteon 09-03-2024 Progress Note [facility]: Cardiothoracic Surgery Multidisciplinary Heart Valve Clinic Date: 09/03/24 Patient:Linda Peralta 1945 79 y.o. female [id number] Subjective: HPI: Linda Peralta 79 [address] Marte is being evaluated for aortic valve stenosis. Echocardiogram completed on 07/03/24 showed moderate to severe aortic valve stenosis with mean gradient 39 mm Hg. Per note, patient with past medical history significant for STEMI 2009, HLD, DVT, PE, Ritchie's Disease, CKD, s/p left nephrectomy and right [...] were no vitals taken for this visit. @[email or web address]@ Physical Exam Constitutional: Appearance: Normal appearance. HENT: [...] neck supple (more content not included)... Normal [facility] Progress Note Planet8 [facility] [place] [address] [facility] [address] Dept: [phone] Dept Visit type: New : 1945 Reason [...] proceeding with TAVR. We will contact her housing liaison for recommendations about steroid dosing around the [...] LVEFPHYS, LVEF (more content not included)... Normal [facility] Progress Noteon 08-30-2024 Progress Note Hermes [...] No past medical history on file. Normal [facility] Bacteria Ur Culton 5 Bacteria identified Cx Nom (U) ORGANISM ID: 1 50,000-<100,000 CFU/ml Streptococcus anginosus No susceptibility testing done. Normal [facility] Comment on above: Performed By: #### 6 30-4 ####[facility] LABCLIA [id number] [address] [place] CNOVon 07-10-2025 CNOV Office Visit (INTMWS ) -------- LINDA PERALTA ([id number]) 1945 F Date Time Provider Department 08/29/24 10:40 AM AMOS FLOYD INTMWS During your visit today, we recorded the following information about you: Pulse Respiration Blood pressure Weight 71/minute 20/minute 135/83 71.4 kg Amos Floyd MD 08/29/2024 11:26 AM Signed This note was created using [employer]. Subjective Linda Peralta is a 79 year old female here with daughter. She was doing better. Blood pressure was elevating now. Her housing liaison, Dr. Gregory, did not need to call in a medication to raise her blood pressure. Edema was improving. Dysuria resolved. She was scheduled to see cardiac surgeons in [facility] next week for possible TAVR. Review [...] I35.0 - To see cardiac surgery in [facility]. 6. Thyroid nodule greater than or equal to 1 cm in diameter incidentally noted on imaging study, right side. - ICD9: 241.0, ICD10: E04.1 - We reviewed this. Dr. Gregory palpated her thyroid and was aware. He recommended monitori (more content not included)... Normal [facility] UA DIP, URINE (POC)on 2024 BILIRUBIN UA (POCT) Negative Negative [facility] CLARITY UA (POCT) Clear [facility] COLOR UA (POCT) Yellow [facility] GLUCOSE UA (POCT) Negative Negative mg/dL [facility] Hemoglobin Ql (U) Negative Negative [facility] Interpretation and review of laboratory results Abnormal [facility] KETONE UA (POCT) Negative Negative mg/dL [facility] LEUKOCYTES UA (POCT) Small Abnormal Negative [facility] NITRITE UA (POCT) Negative Negative [facility] PH UA (POCT) 6.5 4.5 - 8.0 [facility] Protein Ql (U) 30 mg/dL Abnormal Negative [facility] SPECIFIC GRAVITY UA (POCT) 1.02 1.005 - 1.030 [facility] UROBILINOGEN UA (POCT) 0.2 Camelia l E.U./dL [facility] Location:[address], [place], [place], [address] [place] [address] POINT OF CARE [facility] CNPNon 08-19-2024 CNPN Telephone (INTMWS) -------- LINDA PERALTA ([id number]) 1945 F Date Time Provider Department 08/19/24 [...] order another antibiotic? Please advise daughter Souleymane [phone]. Amos Floyd MD 08/19/2024 5:46 PM Signed [...] [Z86.0100] 03/10 (more content not included)... Normal [facility] 36on 08-16-2024 36 Mailed BOOTH OPERATOR packet and made chart Normal [facility] Bacteria Ur Culton 5 Bacteria [...] , Intermediate >32 , Resistant >64 Abnormal [facility] Comment on above: Performed By: #### 6 30-4 ####[facility] LABCLIA [id number] [address] OF [facility] CNOVon 08-14-2024 CNOV Office Visit (INTMWS ) -------- LINDA PERALTA ([id number]) 1945 F Date Time Provider Department 08/14/24 11:20 AM AMOS FLOYD INTMWS During your visit today, we recorded the following information about you: Temperature Pulse Respiration Blood pressure 98.2 degrees 88/minute 18/minute 98/64 Weight 71.2 kg Amos Floyd MD 08/15/2024 7:19 AM Signed This note was created using [employer]. Subjective Patient presents with: Hospital F/U Linda Peralta is a 79 year old female here with her daughter. She had a heart catheterization 08/05/24 showing minimal CAD and severe . She was being referred for TAVR to a specialist in [facility]. She developed weakness 08/07/24 and was found to be bradycardic and hypotensive. She was admitted with concerns for UTI, urosepsis, non STEMI, and Ritchie's. She was treated with IV fluids, antibiotic for Klebsiella aerogenes UTI, and IV hydrocortisone. She was noted to have edema and found to have acute DVT, in the setting of recent holding of correction warfarin for the heart cath. She was [...] present. Neurolo (more content not included)... Normal [facility] UA DIP, URINE (POC)on 2024 BILIRUBIN UA (POCT) Negative Negative [facility] CLARITY UA (POCT) Clear [facility] COLOR UA (POCT) Yellow [facility] GLUCOSE UA (POCT) Negative Negative mg/dL [facility] Hemoglobin Ql (U) Negative Negative [facility] Interpretation and review of laboratory results Abnormal [facility] KETONE UA (POCT) Negative Negative mg/dL [facility] LEUKOCYTES UA (POCT) Trace Abnormal Negative [facility] NITRITE UA (POCT) Negative Negative [facility] PH UA (POCT) 6 4.5 - 8.0 [facility] Protein Ql (U) 30 mg/dL Abnormal Negative [facility] SPECIFIC GRAVITY UA (POCT) 1.02 1.005 - 1.030 [facility] UROBILINOGEN UA (POCT) 0.2 Camelia l E.U./dL [facility] Location:[facility] [place], [address], [place], [address] [facility] POINT OF CARE [facility] 36on 08-13-2024 36 Patient sched in [place] 09/03/24 w/ PB/EE. I need to make chart and mail BOOTH OPERATOR packet. Normal [facility] Culture, Blood (WB)on 2024 CUB Blood cultures x2, f rom two different sites No growth in 5 days. Normal [facility] Comment on above: Performed By: #### L 501.4021, M200.1000 ####[facility] [address] [place], [address] Performed By: #### M 200.1000 ####[facility] [address] [place], [address] Absolute lymphocyte countOrd ered By: Ted Toro on 08-09-2024 Lymphocytes Auto (Unsp spec) [#/Vol] 0.85 10*3/uL 0.83-4.51 [facility] Absolute neutrophil countOrd ered By: Ted Toro on 08-09-2024 Neutrophils (Bld) [#/Vol] 9.3 10*3/uL High 2.0-7.7 [facility] Anion gap in Serum or Plasma Ordered By: Ted Toro on 08-09-2024 Anion gap [Moles/Vol] 11 mmol/L - [facility] Automated lymphocyte count a s percentage of total leukocytesOrdered By: Ted Toro on 08-09-2024 Lymphocytes/100 WBC Auto (Unsp spec) 7.4 % Low - [facility] BUN/creatinine ratioOrdered By: Ted Toro on 08-09-2024 Urea nitrogen/Creatinine [Mass ratio] 30.7 mg/mg High 12-09 [facility] Basic Metabolic Profile (BMP )on 08-09-2024 BUN/CRE 30.7 RATIO High 10-20 [facility] Comment on above: Performed By: #### L 500.2500, L100.0100 ####[facility] [address] [place], [address] Calcium [Mass/Vol] 8.5 mg/dL Normal 7.6-11.0 [facility] Comment on above: Performed By: #### L 500.2500, L100.0100 ####[facility] [address] [place], [address] Chloride [Moles/Vol] 111 mmol/L High 98-108 [facility] Comment on above: Performed By: #### L 500.2500, L100.0100 ####[facility] [address] [place], [address] CO2 [Moles/Vol] 15.0 mmol/L Low 21.0-32.0 [facility] Comment on above: Performed By: #### L 500.2500, L100.0100 ####[facility] [address] [place], [address] Creatinine [Mass/Vol] 1.35 mg/dL High 0.70-1.20 [facility] Comment on above: Performed By: #### L 500.2500, L100.0100 ####[facility] [address] [place], [address] ECRCL 30.53 ml/min Low 50-250 [facility] Comment on above: Performed By: #### L 500.2500, L100.0100 ####[facility] [address] [place], [address] GAP 11 Normal 5-15 [facility] Comment on above: Performed By: #### L 500.2500, L100.0100 ####[facility] [address] [place], [address] GFR/1.73 sq M.predicted among non-blacks MDRD (S/P/Bld) [Vol rate/Area] 39 mL/min/{1.73_m2} Low >60 [facility] Comment on above: Result Comment: mL/m in/1.73m2 CKD-EPI Creatinine Equation (2020) Performed By: #### L 500.2500, L100.0100 ####[facility] [address] [place], [address] Glucose [Mass/Vol] 145 mg/dL High 70-99 [facility] Comment on above: Performed By: #### L 500.2500, L100.0100 ####[facility] [address] [place], [address] Potassium [Moles/Vol] 4.9 mmol/L Normal 3.3-5.1 [facility] Comment on above: Performed By: #### L 500.2500, L100.0100 ####[facility] [address] [place], [address] Sodium [Moles/Vol] 137 mmol/L Normal 133-145 [facility] Comment on above: Performed By: #### L 500.2500, L100.0100 ####[facility] [address] [place], [address] Urea nitrogen [Mass/Vol] 41 mg/dL High 4-19 [facility] Comment on above: Performed By: #### L 500.2500, L100.0100 ####[facility] [address] [place], [address] Basophil percentageOrdered B y: Ted Toro on 08-09-2024 Basophils/100 WBC (Bld) 0.3 % 0-1 [facility] CBC W/Diff, Automatedon 07-22 Absolute Lymph 0.85 X10 3/uL Normal 0.83-4.51 [facility] Comment on above: Performed By: #### L 500.2500, L100.0100 ####[facility] [address] [place], [address] Absolute Neut 9.3 X10 3/uL High 2.0-7.7 [facility] Comment on above: Performed By: #### L 500.2500, L100.0100 ####[facility] [address] [place], [address] Basophils/100 WBC (Bld) 0.3 % Normal 0-1 [facility] Comment on above: Performed By: #### L 500.2500, L100.0100 ####[facility] [address] [place], [address] Eosinophils/100 WBC (Bld) 0.2 % Normal 0-5 [facility] Comment on above: Performed By: #### L 500.2500, L100.0100 ####[facility] [address] [place], [address] Erythrocyte distribution width (RBC) [Ratio] 15.9 % High 11.6-14.6 [facility] Comment on above: Performed By: #### L 500.2500, L100.0100 ####[facility] [address] [place], [address] Hematocrit (Bld) [Volume fraction] 40.4 % Normal 37-47 [facility] Comment on above: Performed By: #### L 500.2500, L100.0100 ####[facility] [address] [place], [address] Hemoglobin (Bld) [Mass/Vol] 13.3 g/dL Normal 12.0-15.0 [facility] Comment on above: Performed By: #### L 500.2500, L100.0100 ####[facility] [address] [place], [address] IG% 1.600 High 0.0-0.9 [facility] Comment on above: Result Comment: IG% - Immature Granulocytes (promyelocytes, myelocytes andmetamyelocytes) > 1% indicates that a LEFT SHIFT is Present. Performed By: #### L 500.2500, L100.0100 ####[facility] [address] [place], [address] Lymphocytes/100 WBC (Bld) 7.4 % Low 19-41 [facility] Comment on above: Performed By: #### L 500.2500, L100.0100 ####[facility] [address] [place], [address] MCH (RBC) [Entitic mass] 30.1 pg Normal 27.0-32.0 [facility] Comment on above: Performed By: #### L 500.2500, L100.0100 ####[facility] [address] [place], [address] MCHC (RBC) [Mass/Vol] 32.9 g/dL Normal 32-36 [facility] Comment on above: Performed By: #### L 500.2500, L100.0100 ####[facility] [address] [place], [address] MCV (RBC) [Entitic vol] 91.4 fL Normal 81-99 [facility] Comment on above: Performed By: #### L 500.2500, L100.0100 ####[facility] [address] [place], [address] Monocytes/100 WBC (Bld) 9.5 % Normal 0-10 [facility] Comment on above: Performed By: #### L 500.2500, L100.0100 ####[facility] [address] [place], [address] Neutrophils/100 WBC (Bld) 81.0 % High 47-70 [facility] Comment on above: Performed By: #### L 500.2500, L100.0100 ####[facility] [address] [place], [address] Nucleated RBC (Bld) [#/Vol] 0 10*3/uL Normal 0-5 [facility] Comment on above: Performed By: #### L 500.2500, L100.0100 ####[facility] [address] [place], [address] Platelet mean volume (Bld) [Entitic vol] 12.0 fL Normal 6.2-12.0 [facility] Comment on above: Performed By: #### L 500.2500, L100.0100 ####[facility] [address] [place], [address] Platelets (Bld) [#/Vol] 118 10*3/uL Low 150-450 [facility] Comment on above: Performed By: #### L 500.2500, L100.0100 ####[facility] [address] [place], [address] RBC (Bld) [#/Vol] 4.42 10*6/uL Normal 4.2-5.4 [facility] Comment on above: Performed By: #### L 500.2500, L100.0100 ####[facility] [address] [place], [address] RDW SD 53.7 fl High 35.1-43.9 [facility] Comment on above: Performed By: #### L 500.2500, L100.0100 ####[facility] [address] [place], [address] WBC (Bld) [#/Vol] 11.5 10*3/uL High 4.4-11.0 [facility] Comment on above: Performed By: #### L 500.2500, L100.0100 ####[facility] [address] [place], [address] Carbon dioxide, total [Moles /volume] in Central venous bloodOrdered By: Ted Toro on 08-09-2024 CO2 [Moles/Vol] 15.0 mmol/L Low 21.0-32.0 [facility] Chloride assayOrdered By: Deidre Toro on 08-09-2024 Chloride [Moles/Vol] 111 mmol/L High 98-108 [facility] Eosinophil percentageOrdered By: Ted Toro on 08-09-2024 Eosinophils/100 WBC (Bld) 0.2 % 0-5 [facility] Erythrocyte distribution wid th ratioOrdered By: Ted Toro on 08-09-2024 Erythrocyte distribution width (RBC) [Ratio] 15.9 % High 11.6-14.6 [facility] Erythrocyte distribution wid th standard deviationOrdered By: Ted Toro on 08-09-2024 Erythrocyte distribution width (RBC) [Ratio] 53.7 fl High 35.1-43.9 [facility] Glomerular filtration rate ( GFR) estimation/1.73 sq m using serum, plasma, or whole bOrdered By: Ted Toro on 08-09-2024 GFR/1.73 sq M.predicted among non-blacks MDRD (S/P/Bld) [Vol rate/Area] 39 mL/min/{1.73_m2} Low >60 [facility] Comment on above: mL/min/1.73m2 CKD-EP I Creatinine Equation (2020) Hematocrit Auto (Bld) [Volum e fraction]Ordered By: Ted Toro on 08-09-2024 Hematocrit (Bld) [Volume fraction] 40.4 % 37-47 [facility] Hemoglobin measurementOrdere d By: Ted Toro on 08-09-2024 Hemoglobin (Bld) [Mass/Vol] 13.3 g/dL 12.0-15.0 [facility] Immature granulocytes/100 WB C Auto (Bld)Ordered By: Ted Toro on 08-09-2024 Immature granulocytes/100 WBC (Bld) 1.600 % High 0.0-0.9 [facility] Comment on above: IG% - Immature Granu locytes (promyelocytes, myelocytes and metamyelocytes) > 1% indicates that a LEFT SHIFT is Present. MCV (mean corpuscular volume ) determinationOrdered By: Ted Toro on 08-09-2024 MCV (RBC) [Entitic vol] 91.4 fL 81-99 [facility] Mean corpuscular hemoglobin (MCH) determinationOrdered By: Ted Toro on 08-09-2024 MCH (RBC) [Entitic mass] 30.1 pg 27.0-32.0 [facility] Mean corpuscular hemoglobin concentration (MCHC) determinationOrdered By: Ted Toro on 08-09-2024 MCHC (RBC) [Mass/Vol] 32.9 g/dL 32-36 [facility] Mean platelet volume determi nationOrdered By: Ted Toro on 08-09-2024 Platelet mean volume (Bld) [Entitic vol] 12.0 fL 6.2-12.0 [facility] Monocyte percentageOrdered B y: Ted Toro on 08-09-2024 Monocytes/100 WBC (Bld) 9.5 % 0-10 [facility] Neutrophil percentageOrdered By: Ted Toro on 08-09-2024 Neutrophils/100 WBC (Bld) 81.0 % High 47-70 [facility] Nucleated red blood cell per centageOrdered By: Ted Toro on 08-09-2024 Nucleated RBC/100 WBC (Bld) [Ratio] 0 % 0-5 [facility] Platelet countOrdered By: Deidre Toro on 08-09-2024 Platelets (Bld) [#/Vol] 118 10*3/uL Low 150-450 [facility] Potassium measurement (mass/ volume)Ordered By: Ted Toro on 08-09-2024 Potassium (Unsp spec) [Mass/Vol] 4.9 mmol/L 3.3-5.1 [facility] RBC Auto (Bld) [#/Vol]Ordere d By: Ted Toro on 08-09-2024 RBC (Bld) [#/Vol] 4.42 10*6/uL 4.2-5.4 [facility] Serum creatinine measurement (mass/volume)Ordered By: Ted Toro on 08-09-2024 Creatinine [Mass/Vol] 1.35 mg/dL High 0.70-1.20 [facility] Serum glucose measurement (m ass/volume)Ordered By: Ted Toro on 08-09-2024 Glucose [Mass/Vol] 145 mg/dL High 70-99 [facility] Serum or plasma calcium scott urement (mass/volume)Ordered By: Ted Toro on 08-09-2024 Calcium [Mass/Vol] 8.5 mg/dL 7.6-11.0 [facility] Serum or plasma urea nitroge n measurement (mass/volume)Ordered By: Ted Toro on 08-09-2024 Urea nitrogen [Mass/Vol] 41 mg/dL High 4-19 [facility] Sodium levelOrdered By: Buddy Toro on 08-09-2024 Sodium [Moles/Vol] 137 mmol/L 133-145 [facility] Urine Cultureon 08-09-2024 URC Normal [facility] Comment on above: Performed By: #### M 100.2200, L400.0001 ####[facility] [address] [place], [address] White blood cell (WBC) count Ordered By: Ted Toro on 08-09-2024 WBC (Bld) [#/Vol] 11.5 10*3/uL High 4.4-11.0 [facility] Venous Duplex US - Spencer Extre mon 08-08-2024 Venous Duplex US - Spencer Extrem Normal [facility] 12 Lead EKGon 08-07-2024 12 Lead EKG Normal [facility] Abdomen/Pelvis without Conto n 08-07-2024 Abdomen/Pelvis without Cont Normal [facility] Absolute lymphocyte countOrd ered By: Obinna Frye on 08-07-2024 Lymphocytes Auto (Unsp spec) [#/Vol] 2.26 10*3/uL 0.83-4.51 [facility] Absolute neutrophil countOrd ered By: Obinna Frye on 08-07-2024 Neutrophils (Bld) [#/Vol] 10.8 10*3/uL High 2.0-7.7 [facility] Anion gap in Serum or Plasma Ordered By: Obinnamorales Frye on 08-07-2024 Anion gap [Moles/Vol] 15 mmol/L 5-15 [facility] Automated lymphocyte count a s percentage of total leukocytesOrdered By: Obinnamorales Molinao on 08-07-2024 Lymphocytes/100 WBC Auto (Unsp spec) 15.0 % Low 19-41 [facility] BUN/creatinine ratioOrdered By: [facility] on 08-07-2024 Urea nitrogen/Creatinine [Mass ratio] 27.3 mg/mg High 10-20 [facility] Basophil percentageOrdered B y: Obinnamorales Frye on 08-07-2024 Basophils/100 WBC (Bld) 0.9 % 0-1 [facility] Bilirubin Test strip Ql (U)O rdered By: Obinnamorales Molinao on 08-07-2024 Bilirubin Ql (U) Negative Negative [facility] Bilirubin, totalOrdered By: Obinnamorales Frye on 08-07-2024 Bilirubin [Mass/Vol] 0.52 mg/dL 0.00-1.30 [facility] Blood cultureOrdered By: Obinnamorales Molinao on 08-07-2024 Bacteria identified Cx Nom (Bld) No growth in 5 days. [facility] Bacteria identified Cx Nom (Bld) No growth in 5 days. [facility] CBC W/Diff, Automatedon 07-21 Absolute Lymph 2.26 X10 3/uL Normal 0.83-4.51 [facility] Comment on above: Performed By: #### L 100.0100, L500.4050 ####[facility] [address] [place], [address] Absolute Neut 10.8 X10 3/uL High 2.0-7.7 [facility] Comment on above: Performed By: #### L 100.0100, L500.4050 ####[facility] [address] [place], [address] Basophils/100 WBC (Bld) 0.9 % Normal 0-1 [facility] Comment on above: Performed By: #### L 100.0100, L500.4050 ####[facility] [address] [place], [address] Eosinophils/100 WBC (Bld) 1.1 % Normal 0-5 [facility] Comment on above: Performed By: #### L 100.0100, L500.4050 ####[facility] [address] [place], [address] Erythrocyte distribution width (RBC) [Ratio] 15.6 % High 11.6-14.6 [facility] Comment on above: Performed By: #### L 100.0100, L500.4050 ####[facility] [address] [place], [address] Hematocrit (Bld) [Volume fraction] 46.5 % Normal 37-47 [facility] Comment on above: Performed By: #### L 100.0100, L500.4050 ####[facility] [address] [place], [address] Hemoglobin (Bld) [Mass/Vol] 15.2 g/dL High 12.0-15.0 [facility] Comment on above: Performed By: #### L 100.0100, L500.4050 ####[facility] [address] [place], [address] IG% 1.600 High 0.0-0.9 [facility] Comment on above: Result Comment: IG% - Immature Granulocytes (promyelocytes, myelocytes andmetamyelocytes) > 1% indicates that a LEFT SHIFT is Present. Performed By: #### L 100.0100, L500.4050 ####[facility] [address] [place], [address] Lymphocytes/100 WBC (Bld) 15.0 % Low 19-41 [facility] Comment on above: Performed By: #### L 100.0100, L500.4050 ####[facility] [address] [place], [address] MCH (RBC) [Entitic mass] 29.7 pg Normal 27.0-32.0 [facility] Comment on above: Performed By: #### L 100.0100, L500.4050 ####[facility] [address] [place], [address] MCHC (RBC) [Mass/Vol] 32.7 g/dL Normal 32-36 [facility] Comment on above: Performed By: #### L 100.0100, L500.4050 ####[facility] [address] [place], [address] MCV (RBC) [Entitic vol] 91.0 fL Normal 81-99 [facility] Comment on above: Performed By: #### L 100.0100, L500.4050 ####[facility] [address] [place], [address] Monocytes/100 WBC (Bld) 9.7 % Normal 0-10 [facility] Comment on above: Performed By: #### L 100.0100, L500.4050 ####[facility] [address] [place], [address] Neutrophils/100 WBC (Bld) 71.7 % High 47-70 [facility] Comment on above: Performed By: #### L 100.0100, L500.4050 ####[facility] [address] [place], [address] Nucleated RBC (Bld) [#/Vol] 0 10*3/uL Normal 0-5 [facility] Comment on above: Performed By: #### L 100.0100, L500.4050 ####[facility] [address] [place], [address] Platelet mean volume (Bld) [Entitic vol] 11.9 fL Normal 6.2-12.0 [facility] Comment on above: Performed By: #### L 100.0100, L500.4050 ####[facility] [address] [place], [address] Platelets (Bld) [#/Vol] 193 10*3/uL Normal 150-450 [facility] Comment on above: Performed By: #### L 100.0100, L500.4050 ####[facility] [address] [place], [address] RBC (Bld) [#/Vol] 5.11 10*6/uL Normal 4.2-5.4 [facility] Comment on above: Performed By: #### L 100.0100, L500.4050 ####[facility] [address] [place], [address] RDW SD 52.4 fl High 35.1-43.9 [facility] Comment on above: Performed By: #### L 100.0100, L500.4050 ####[facility] [address] [place], [address] WBC (Bld) [#/Vol] 15.1 10*3/uL High 4.4-11.0 [facility] Comment on above: Performed By: #### L 100.0100, L500.4050 ####[facility] [address] [place], [address] Carbon dioxide, total [Moles /volume] in Central venous bloodOrdered By: Obinna Frye on 08-07-2024 CO2 [Moles/Vol] 14.6 mmol/L Low 21.0-32.0 [facility] Chloride assayOrdered By: Shashank Frye on 08-07-2024 Chloride [Moles/Vol] 107 mmol/L 98-108 [facility] Comprehensive Metabolic Prof ilon 08-07-2024 Albumin [Mass/Vol] 4.1 g/dL Normal 3.4-4.8 [facility] Comment on above: Performed By: #### L 100.0100, L500.4050 ####[facility] [address] [place], [address] Albumin/Globulin [Mass ratio] 1.8 {ratio} Normal 0.9-2.4 [facility] Comment on above: Performed By: #### L 100.0100, L500.4050 ####[facility] [address] [place], [address] ALK PHOS 102 U/L Normal 35-104 [facility] Comment on above: Performed By: #### L 100.0100, L500.4050 ####[facility] [address] [place], [address] ALT [Catalytic activity/Vol] 20 U/L Normal <=34 [facility] Comment on above: Performed By: #### L 100.0100, L500.4050 ####[facility] [address] [place], [address] AST [Catalytic activity/Vol] 27 U/L Normal <=31 [facility] Comment on above: Result Comment: Hemo lysis present, Results??could be affected.?? Performed By: #### L 100.0100, L500.4050 ####[facility] [address] [place], [address] Bilirubin [Mass/Vol] 0.52 mg/dL Normal 0.00-1.30 [facility] Comment on above: Performed By: #### L 100.0100, L500.4050 ####[facility] [address] [place], [address] BUN/CRE 27.3 RATIO High 10-20 [facility] Comment on above: Performed By: #### L 100.0100, L500.4050 ####[facility] [address] [place], [address] Calcium [Mass/Vol] 9.9 mg/dL Normal 7.6-11.0 [facility] Comment on above: Performed By: #### L 100.0100, L500.4050 ####[facility] [address] [place], [address] Chloride [Moles/Vol] 107 mmol/L Normal 98-108 [facility] Comment on above: Performed By: #### L 100.0100, L500.4050 ####[facility] [address] [place], [address] CO2 [Moles/Vol] 14.6 mmol/L Low 21.0-32.0 [facility] Comment on above: Performed By: #### L 100.0100, L500.4050 ####[facility] [address] [place], [address] Creatinine [Mass/Vol] 1.59 mg/dL High 0.70-1.20 [facility] Comment on above: Performed By: #### L 100.0100, L500.4050 ####[facility] [address] [place], [address] ECRCL 25.08 ml/min Low 50-250 [facility] Comment on above: Performed By: #### L 100.0100, L500.4050 ####[facility] [address] [place], [address] GAP 15 Normal 5-15 [facility] Comment on above: Performed By: #### L 100.0100, L500.4050 ####[facility] [address] [place], [address] GFR/1.73 sq M.predicted among non-blacks MDRD (S/P/Bld) [Vol rate/Area] 32 mL/min/{1.73_m2} Low >60 [facility] Comment on above: Result Comment: mL/m in/1.73m2 CKD-EPI Creatinine Equation (2020) Performed By: #### L 100.0100, L500.4050 ####[facility] [address] [place], [address] Globulin (S) [Mass/Vol] 2.2 g/dL Normal 2.2-4.2 [facility] Comment on above: Performed By: #### L 100.0100, L500.4050 ####[facility] [address] [place], [address] Glucose [Mass/Vol] 139 mg/dL High 70-99 [facility] Comment on above: Performed By: #### L 100.0100, L500.4050 ####[facility] [address] [place], [address] Potassium [Moles/Vol] 4.5 mmol/L Normal 3.3-5.1 [facility] Comment on above: Result Comment: Hemo lysis present, Results??could be affected.?? Performed By: #### L 100.0100, L500.4050 ####[facility] [address] [place], [address] Sodium [Moles/Vol] 137 mmol/L Normal 133-145 [facility] Comment on above: Performed By: #### L 100.0100, L500.4050 ####[facility] [address] [place], [address] T PROT 6.3 g/dL Normal 5.9-8.4 [facility] Comment on above: Performed By: #### L 100.0100, L500.4050 ####[facility] [address] [place], [address] Urea nitrogen [Mass/Vol] 43 mg/dL High 4-19 [facility] Comment on above: Performed By: #### L 100.0100, L500.4050 ####[facility] [address] [place], [place], [address] Emergency Department Summary on 08-07-2024 Emergency Department Summary Normal [facility] Eosinophil percentageOrdered By: Obinna Frye on 08-07-2024 Eosinophils/100 WBC (Bld) 1.1 % 0-5 [facility] Erythrocyte distribution wid th ratioOrdered By: Obinna Frye on 08-07-2024 Erythrocyte distribution width (RBC) [Ratio] 15.6 % High 11.6-14.6 [facility] Erythrocyte distribution wid th standard deviationOrdered By: Obinna Frye on 08-07-2024 Erythrocyte distribution width (RBC) [Ratio] 52.4 fl High 35.1-43.9 [facility] Ferritinon 08-07-2024 Ferritin [Mass/Vol] 107 ng/mL Normal 22-378 [facility] Comment on above: Performed By: #### L 503.6005, L509.6002, L501.9520, L300.3900, L503.6030, L503.6550 ####[facility] [address] [place], [place], [address] Glomerular filtration rate ( GFR) estimation/1.73 sq m using serum, plasma, or whole bOrdered By: Obinna Frye on 08-07-2024 GFR/1.73 sq M.predicted among non-blacks MDRD (S/P/Bld) [Vol rate/Area] 32 mL/min/{1.73_m2} Low >60 [facility] Comment on above: mL/min/1.73m2 CKD-EP I Creatinine Equation (2020) H AND P Exam - Hospitaliston 08-07-2024 H&P Exam - Hospitalist Normal [facility] Hematocrit Auto (Bld) [Volum e fraction]Ordered By: Obinna Frye on 08-07-2024 Hematocrit (Bld) [Volume fraction] 46.5 % 37-47 [facility] Hemoglobin measurementOrdere d By: Obinna Frye on 08-07-2024 Hemoglobin (Bld) [Mass/Vol] 15.2 g/dL High 12.0-15.0 [facility] Immature granulocytes/100 WB C Auto (Bld)Ordered By: Obinna Frye on 08-07-2024 Immature granulocytes/100 WBC (Bld) 1.600 % High 0.0-0.9 [facility] Comment on above: IG% - Immature Granu locytes (promyelocytes, myelocytes and metamyelocytes) > 1% indicates that a LEFT SHIFT is Present. International normalized rat io (INR) calculationOrdered By: Nixon Brizuela on 08-07-2024 INR Coag (Bld) [Relative time] 1.1 {INR} [facility] Iron measurement (mass/mass) Ordered By: Nixon Brizuela on 08-07-2024 Iron (Unsp spec) [Mass/Mass] 55 ug/dL 50-170 [facility] Iron+Iron Binding Capacityon 08-07-2024 Iron [Mass/Vol] 55 ug/dL Normal 50-170 [facility] Comment on above: Performed By: #### L 503.6005, L509.6002, L501.9520, L300.3900, L503.6030, L503.6550 ####[facility] [address] [place], [address] IRON SATURATION 19.0 Normal 13-59 [facility] Comment on above: Performed By: #### L 503.6005, L509.6002, L501.9520, L300.3900, L503.6030, L503.6550 ####[facility] [address] [place], [address] TIBC 295 ug/dL Normal 250-450 [facility] Comment on above: Performed By: #### L 503.6005, L509.6002, L501.9520, L300.3900, L503.6030, L503.6550 ####[facility] [address] [place], [address] UIBC 240 ug/dL Normal 228-428 [facility] Comment on above: Result Comment: Hemo lysis present, Results??could be affected.?? Performed By: #### L 503.6005, L509.6002, L501.9520, L300.3900, L503.6030, L503.6550 ####[facility] [address] [place], [address] Ketones Test strip Ql (U)Ord ered By: Obinna Frye on 08-07-2024 Ketones Ql (U) Negative Negative [facility] L499.0042on 08-07-2024 Trop T High Sen 55 ng/L Invalid Interpretation Code <=14 [facility] Comment on above: Result Comment: Crit ical Result(s) Called at: 1847 by: TOY DE LA TORRE??Results read back by same. Performed By: #### L 499.0042 ####[facility] [address] [place], [address] L499.0043on 08-07-2024 Trop T High Sen 52 ng/L High <=14 [facility] Comment on above: Result Comment: Crit ical Result(s) Called at: 2158 by:??TOY JASSO Results read back by same. Performed By: #### L 499.0043 ####[facility] [address] [place], [address] L501.4021on 08-07-2024 Trop T High Sen 60 ng/L Invalid Interpretation Code <=14 [facility] Comment on above: Result Comment: Crit ical Result(s) Called at: 1736 by: TOY RENDON??Results read back by same. Performed By: #### L 501.4021, M200.1000 ####[facility] [address] [place], [address] L509.6002on 08-07-2024 CORTISOL 12.00 ug/dL High 2.68-10.50 [facility] Comment on above: Performed By: #### L 503.6005, L509.6002, L501.9520, L300.3900, L503.6030, L503.6550 ####[facility] [address] [place], [place], [address] Laboratory - Chemistry and C hemistry - challengeOrdered By: Obinna Frye on 08-07-2024 AST [Catalytic activity/Vol] 27 U/L <32 [facility] Comment on above: Hemolysis present, R esults could be affected. Lactic Acidon 08-07-2024 Lactate [Moles/Vol] mmol/L Normal 0.0-2.0 [facility] Comment on above: Order Comment: Comme nts: if result >2, system reflex orders 2nd test @ 4hrsY Performed By: #### L 503.6005, L509.6002, L501.9520, L300.3900, L503.6030, L503.6550 ####[facility] [address] [place], [place], [address] Lactic acid measurementOrder ed By: Nixon Brizuela on 08-07-2024 Lactate [Moles/Vol] mmol/L 0.0-2.0 [facility] MCV (mean corpuscular volume ) determinationOrdered By: Obinna Frye on 08-07-2024 MCV (RBC) [Entitic vol] 91.0 fL 81-99 [facility] Mean corpuscular hemoglobin (MCH) determinationOrdered By: Obinna Frye on 08-07-2024 MCH (RBC) [Entitic mass] 29.7 pg 27.0-32.0 [facility] Mean corpuscular hemoglobin concentration (MCHC) determinationOrdered By: Obinna Frye on 08-07-2024 MCHC (RBC) [Mass/Vol] 32.7 g/dL 32-36 [facility] Mean platelet volume determi nationOrdered By: Obinna Frye on 08-07-2024 Platelet mean volume (Bld) [Entitic vol] 11.9 fL 6.2-12.0 [facility] Microscopic analysis of urin e for red blood cells (RBC)Ordered By: Obinna Frye on 08-07-2024 Microscopic analysis of urine for red blood cells (RBC) 0-5 SEEN /hpf 0-5 [facility] Monocyte percentageOrdered B y: Obinnamorales Molinao on 08-07-2024 Monocytes/100 WBC (Bld) 9.7 % 0-10 [facility] Mucus LM Ql (Urine sed)Order ed By: Obinna Frye on 08-07-2024 Mucus Ql (Urine sed) 0 SEEN /hpf [facility] Neutrophil percentageOrdered By: Obinna Frey on 08-07-2024 Neutrophils/100 WBC (Bld) 71.7 % High 47-70 [facility] Nitrite Test strip Ql (U)Ord ered By: Obinna Frye on 08-07-2024 Nitrite Ql (U) Positive High Negative [facility] No Panel InformationOrdered By: Nixon Brizuela on 08-07-2024 Unsaturated Iron Binding Capacity 240 ug/dL 228-428 [facility] Comment on above: Hemolysis present, R esults could be affected. Nucleated red blood cell per centageOrdered By: Obinna Frye on 08-07-2024 Nucleated RBC/100 WBC (Bld) [Ratio] 0 % 0-5 [facility] Platelet countOrdered By: Shashank morales Molinao on 08-07-2024 Platelets (Bld) [#/Vol] 193 10*3/uL 150-450 [facility] Potassium measurement (mass/ volume)Ordered By: Obinna Frye on 08-07-2024 Potassium (Unsp spec) [Mass/Vol] 4.5 mmol/L 3.3-5.1 [facility] Comment on above: Hemolysis present, R esults could be affected. Protein Test strip Ql (U)Ord ered By: Obinna Frye on 08-07-2024 Protein Ql (U) 30 mg/dl High Negative [facility] Prothrombin Time w/INRon INR Coag (PPP) [Relative time] 1.1 {INR} Normal [facility] Comment on above: Performed By: #### L 503.6005, L509.6002, L501.9520, L300.3900, L503.6030, L503.6550 ####[facility] [address] [place], [address] PT Coag (PPP) [Time] 14.9 s Normal 11.7-14.9 [facility] Comment on above: Performed By: #### L 503.6005, L509.6002, L501.9520, L300.3900, L503.6030, L503.6550 ####[facility] [address] [place], [address] Prothrombin timeOrdered By: Nixon Brizuela on 08-07-2024 PT Coag (PPP) [Time] 14.9 s 11.7-14.9 [facility] RBC Auto (Bld) [#/Vol]Ordere d By: Obinnamorales Frye on 08-07-2024 RBC (Bld) [#/Vol] 5.11 10*6/uL 4.2-5.4 [facility] Serum creatinine measurement (mass/volume)Ordered By: Obinna Frye on 08-07-2024 Creatinine [Mass/Vol] 1.59 mg/dL High 0.70-1.20 [facility] Serum globulin measurementOr dered By: Obinna Frye on 08-07-2024 Globulin (S) [Mass/Vol] 2.2 g/dL 2.2-4.2 [facility] Serum glucose measurement (m ass/volume)Ordered By: Obinna Frye on 08-07-2024 Glucose [Mass/Vol] 139 mg/dL High 70-99 [facility] Serum or plasma alanine evans otransferase (ALT) measurementOrdered By: Obinnamorales Frye on 08-07-2024 ALT [Catalytic activity/Vol] 20 U/L <35 [facility] Serum or plasma albumin scott urement (mass/volume)Ordered By: Obinna Frye on 08-07-2024 Albumin [Mass/Vol] 4.1 g/dL 3.4-4.8 [facility] Serum or plasma albumin/glob ulin mass ratioOrdered By: Obinna Frye on 08-07-2024 Albumin/Globulin [Mass ratio] 1.8 {ratio} 0.9-2.4 [facility] Serum or plasma alkaline bárbara sphatase measurementOrdered By: Obinna Frye on 08-07-2024 ALP [Catalytic activity/Vol] 102 U/L 35-104 [facility] Serum or plasma calcium scott urement (mass/volume)Ordered By: Obinna Frye on 08-07-2024 Calcium [Mass/Vol] 9.9 mg/dL 7.6-11.0 [facility] Serum or plasma cortisol marely surement (mass/volume)Ordered By: Nixon Brizuela on 08-07-2024 Cortisol [Mass/Vol] 12.00 ug/dL High 2.68-10.50 [facility] Serum or plasma ferritin marely surement (mass/volume)Ordered By: Nixon Brizuela on 08-07-2024 Ferritin [Mass/Vol] 107 ng/mL 22-378 [facility] Serum or plasma iron saturat ion measurement (mass fraction)Ordered By: Nixon Brizuela on 08-07-2024 Iron saturation [Mass fraction] 19.0 % 13-59 [facility] Serum or plasma urea nitroge n measurement (mass/volume)Ordered By: Obinna Frye on 08-07-2024 Urea nitrogen [Mass/Vol] 43 mg/dL High 4-19 [facility] Sodium levelOrdered By: Obinna Frye on 08-07-2024 Sodium [Moles/Vol] 137 mmol/L 133-145 [facility] Squamous epithelial cells de tection in urine sediment by light microscopyOrdered By: Obinna Frye on 08-07-2024 Epithelial cells.squamous LM Ql (Urine sed) 0 SEEN /hpf 5-10 [facility] TSH DL <= 0.005 mIU/L QnOrde red By: Nixon Brizuela on 08-07-2024 TSH Qn 1.030 uIU/mL 0.300-4.200 [facility] Thyroid Stim Hormone (TSH)on 08-07-2024 TSH 1.030 uIU/mL Normal 0.300-4.200 [facility] Comment on above: Performed By: #### L 503.6003, L509.6002, L501.9520, L300.3900, L503.6030, L503.3644 ####[facility] [address] [place], [address] Total proteinOrdered By: Obinna Frye on 08-07-2024 Protein [Mass/Vol] 6.3 g/dL 5.9-8.4 [facility] Troponin T.cardiac [Mass/vol ume] in Serum or Plasma by High sensitivity methodOrdered By: Obinna Frye on 08-07-2024 Troponin T.cardiac High sensitivity method [Mass/Vol] 52 ng/L High <14 [facility] Comment on above: Critical Result(s) C alled at: 2158 by: TOY BUNCH TO ABENA JASSO Results read back by same. Troponin T.cardiac High sensitivity method [Mass/Vol] 55 ng/L Critically high <14 [facility] [facility] Comment on above: Critical Result(s) C alled at: 1847 by: TOY DE LA TORRE Results read back by same. Troponin T.cardiac High sensitivity method [Mass/Vol] 60 ng/L Critically high <14 [facility] Comment on above: Critical Result(s) C alled at: 1736 by: TOY BUNCH TO JOHN IBARRA Results read back by same. Type AND Screenon 08-07-2024 Ab SCREEN GEL Negative Normal [facility] Comment on above: Order Comment: Has p t arrived? YHGI Performed By: #### B TS ####[facility] [address] [place], [address] Urinalysis, Completeon 08-07 BACTERIA 3+ /hpf Normal None Seen [facility] Comment on above: Order Comment: CLEAN CATCH Performed By: #### M 100.2200, L400.0001 ####[facility] [address] [place], [address] RBC 0-5 SEEN Normal 0-5 [facility] Comment on above: Order Comment: CLEAN CATCH Performed By: #### M 100.2200, L400.0001 ####[facility] [address] [place], [address] WBC 5-10 SEEN Normal 0-5 [facility] Comment on above: Order Comment: CLEAN CATCH Performed By: #### M 100.2200, L400.0001 ####[facility] [address] [place], [address] EPI,SQUAMOUS 0 SEEN Normal 5-10 [facility] Comment on above: Order Comment: CLEAN CATCH Performed By: #### M 100.2200, L400.0001 ####[facility] [address] [place], [address] Mucus Ql (Urine sed) 0 SEEN Normal [facility] Comment on above: Order Comment: CLEAN CATCH Performed By: #### M 100.2200, L400.0001 ####[facility] [address] [place], [address] Urine clarityOrdered By: Obinna Frye on 08-07-2024 Clarity (U) Clear Clear [facility] Urine color determinationOrd ered By: Obinna Frye on 08-07-2024 Color (U) Yellow Yellow [facility] Urine cultureOrdered By: Obinna Frye on 08-07-2024 Bacteria identified Cx Nom (U) Klebsiella aerogenes Abnormal [facility] Urine glucose detectionOrder ed By: Obinna Frye on 08-07-2024 Glucose Ql (U) Normal mg/dl Normal [facility] Urine leukocyte esterase det ection by dipstickOrdered By: Obinna Frye on 08-07-2024 Leukocyte esterase Test strip Ql (U) 25 /ul High Negative [facility] Urine pHOrdered By: Obinna nielsen on 08-07-2024 pH (U) 6.0 [pH] 5.0 - 8.0 [facility] Urine sediment bacteria coun t by microscopy (number/high power field)Ordered By: Obinna Frye on 08-07-2024 Bacteria LM.HPF (Urine sed) [#/Area] 3 /[HPF] None Seen [facility] Urine specific gravity measu rementOrdered By: Obinna Frye on 08-07-2024 Specific gravity (U) [Rel density] 1.015 1.002-1.030 [facility] Urine urobilinogen measureme ntOrdered By: Obinna Frye on 08-07-2024 Urobilinogen Ql (U) Normal mg/dl Normal [facility] White blood cell (WBC) count Ordered By: Obinna Frye on 08-07-2024 WBC (Bld) [#/Vol] 15.1 10*3/uL High 4.4-11.0 [facility] White blood cell countOrdere d By: Obinna Frye on 08-07-2024 White blood cell count 5-10 SEEN /hpf 0-5 [facility] Anion gap in Serum or Plasma Ordered By: Jordan Estuardo on 08-05-2024 Anion gap [Moles/Vol] 12 mmol/L 5-15 [facility] BUN/creatinine ratioOrdered By: Woodburn Estuardo on 08-05-2024 Urea nitrogen/Creatinine [Mass ratio] 23.7 mg/mg High 10-20 [facility] Basic Metabolic Profile (BMP )on 08-05-2024 BUN/CRE 23.7 RATIO High 10- [facility] Comment on above: Performed By: #### L 300.3900, L500.2500 ####[facility] [address] [place], [address] Calcium [Mass/Vol] 9.8 mg/dL Normal 7.6-11.0 [facility] Comment on above: Performed By: #### L 300.3900, L500.2500 ####[facility] [address] [place], [address] Chloride [Moles/Vol] 111 mmol/L High 98-108 [facility] Comment on above: Performed By: #### L 300.3900, L500.2500 ####[facility] [address] [place], [address] CO2 [Moles/Vol] 17.0 mmol/L Low 21.0-32.0 [facility] Comment on above: Performed By: #### L 300.3900, L500.2500 ####[facility] [address] [place], [address] Creatinine [Mass/Vol] 1.55 mg/dL High 0.70-1.20 [facility] Comment on above: Performed By: #### L 300.3900, L500.2500 ####[facility] [address] [place], [address] ECRCL 25.41 ml/min Low 50-250 [facility] Comment on above: Performed By: #### L 300.3900, L500.2500 ####[facility] [address] [place], [address] GAP 12 Normal 5-15 [facility] Comment on above: Performed By: #### L 300.3900, L500.2500 ####[facility] [address] [place], [address] GFR/1.73 sq M.predicted among non-blacks MDRD (S/P/Bld) [Vol rate/Area] 33 mL/min/{1.73_m2} Low >60 [facility] Comment on above: Result Comment: mL/m in/1.73m2 CKD-EPI Creatinine Equation (2020) Performed By: #### L 300.3900, L500.2500 ####[facility] [address] [place], [address] Glucose [Mass/Vol] 96 mg/dL Normal 70-99 [facility] Comment on above: Performed By: #### L 300.3900, L500.2500 ####[facility] [address] [place], [address] Potassium [Moles/Vol] 4.5 mmol/L Normal 3.3-5.1 [facility] Comment on above: Result Comment: Hemo lysis present, Results??could be affected.?? Performed By: #### L 300.3900, L500.2500 ####[facility] [address] [place], [address] Sodium [Moles/Vol] 140 mmol/L Normal 133-145 [facility] Comment on above: Performed By: #### L 300.3900, L500.2500 ####[facility] [address] [place], [address] Urea nitrogen [Mass/Vol] 37 mg/dL High 4-19 [facility] Comment on above: Performed By: #### L 300.3900, L500.2500 ####[facility] [address] [place], [address] Carbon dioxide, total [Moles /volume] in Central venous bloodOrdered By: Jordan Marte on 08-05-2024 CO2 [Moles/Vol] 17.0 mmol/L Low 21.0-32.0 [facility] Chloride assayOrdered By: Jorge L ril Estuardo on 08-05-2024 Chloride [Moles/Vol] 111 mmol/L High 98-108 [facility] Glomerular filtration rate ( GFR) estimation/1.73 sq m using serum, plasma, or whole bOrdered By: Woodburnstacy Marte on 08-05-2024 GFR/1.73 sq M.predicted among non-blacks MDRD (S/P/Bld) [Vol rate/Area] 33 mL/min/{1.73_m2} Low >60 [facility] Comment on above: mL/min/1.73m2 CKD-EP I Creatinine Equation (2020) International normalized rat io (INR) calculationOrdered By: Woodburn Estuardo on 08-05-2024 INR Coag (Bld) [Relative time] 1.0 {INR} [facility] Potassium measurement (mass/ volume)Ordered By: Jordan Marte on 08-05-2024 Potassium (Unsp spec) [Mass/Vol] 4.5 mmol/L 3.3-5.1 [facility] Comment on above: Hemolysis present, R esults could be affected. Prothrombin Time w/INRon INR Coag (PPP) [Relative time] 1.0 {INR} Normal [facility] Comment on above: Performed By: #### L 300.3900, L500.2500 ####[facility] [address] [place], [place], [address] PT Coag (PPP) [Time] 13.1 s Normal 11.7-14.9 [facility] Comment on above: Performed By: #### L 300.3900, L500.2500 ####[facility] [address] [place], [place], [address] Prothrombin timeOrdered By: Jordan Marte on 08-05-2024 PT Coag (PPP) [Time] 13.1 s 11.7-14.9 [facility] Serum creatinine measurement (mass/volume)Ordered By: Jordan Marte on 08-05-2024 Creatinine [Mass/Vol] 1.55 mg/dL High 0.70-1.20 [facility] Serum glucose measurement (m ass/volume)Ordered By: Jordan Marte on 08-05-2024 Glucose [Mass/Vol] 96 mg/dL 70-99 [facility] Serum or plasma calcium scott urement (mass/volume)Ordered By: Jordan Marte on 08-05-2024 Calcium [Mass/Vol] 9.8 mg/dL 7.6-11.0 [facility] Serum or plasma urea nitroge n measurement (mass/volume)Ordered By: Jordan Marte on 08-05-2024 Urea nitrogen [Mass/Vol] 37 mg/dL High 4-19 [facility] Sodium levelOrdered By: Jarocho Marte on 08-05-2024 Sodium [Moles/Vol] 140 mmol/L 133-145 [facility] CNOVon 07-24-2024 CNOV Office Visit (INTMWS ) -------- LINDA PERALTA ([id number]) 1945 F Date Time Provider Department 07/24/24 11:00 AM AMOS FLOYD INTMWS During your visit today, we recorded the following information about you: Pulse Respiration Blood pressure Weight 80/minute 20/minute 126/82 65.8 kg Amos Floyd MD 07/24/2024 12:45 PM Signed This note was created using NoteWriter. Subjective Linda Peralta is a 79 year old female. Recording using [employer] software for draft documentation of the visit was discussed with the patient/authorized instruments sales representative; all questions welcomed and answered. Patient/authorized instruments sales representative agreed to proceed Heart Murmur: - [...] - Evelia (more content not included)... Normal [facility] Absolute lymphocyte countOrd ered By: Jordan Marte on 07-23-2024 Lymphocytes Auto (Unsp spec) [#/Vol] 1.15 10*3/uL 0.83-4.51 [facility] Absolute neutrophil countOrd ered By: Jordan Marte on 07-23-2024 Neutrophils (Bld) [#/Vol] 8.1 10*3/uL High 2.0-7.7 [facility] Activated partial thrombopla stin time (aPTT) in platelet poor plasma by coagulation aOrdered By: Jordan Marte on 07-23-2024 aPTT Coag (PPP) [Time] 33.9 s 24.1-36.2 [facility] Automated lymphocyte count a s percentage of total leukocytesOrdered By: Jordan Marte on 07-23-2024 Lymphocytes/100 WBC Auto (Unsp spec) 11.0 % Low 19-41 [facility] Basic Metabolic Profile (BMP )on 07-23-2024 BUN/CRE 28.1 RATIO High 10-20 [facility] Comment on above: Order Comment: Do al chris with PT/INR in 1 week Performed By: #### L 300.4310, L100.0100, L300.3900, L500.2500 ####[facility] [address] [place], [place], [address] Calcium [Mass/Vol] 10.4 mg/dL Normal 7.6-11.0 [facility] Comment on above: Order Comment: Do al chris with PT/INR in 1 week Performed By: #### L 300.4310, L100.0100, L300.3900, L500.2500 ####[facility] [address] [place], [address] Chloride [Moles/Vol] 108 mmol/L Normal 98-108 [facility] Comment on above: Order Comment: Do al chris with PT/INR in 1 week Performed By: #### L 300.4310, L100.0100, L300.3900, L500.2500 ####[facility] [address] [place], [address] CO2 [Moles/Vol] 21.6 mmol/L Normal 21.0-32.0 [facility] Comment on above: Order Comment: Do al chris with PT/INR in 1 week Performed By: #### L 300.4310, L100.0100, L300.3900, L500.2500 ####[facility] [address] [place], [address] Creatinine [Mass/Vol] 1.60 mg/dL High 0.70-1.20 [facility] Comment on above: Order Comment: Do al chris with PT/INR in 1 week Performed By: #### L 300.4310, L100.0100, L300.3900, L500.2500 ####[facility] [address] [place], [address] GAP 12 Normal 5-15 [facility] Comment on above: Order Comment: Do al chris with PT/INR in 1 week Performed By: #### L 300.4310, L100.0100, L300.3900, L500.2500 ####[facility] [address] [place], [address] GFR/1.73 sq M.predicted among non-blacks MDRD (S/P/Bld) [Vol rate/Area] 32 mL/min/{1.73_m2} Low >60 [facility] Comment on above: Order Comment: Do al chris with PT/INR in 1 week Result Comment: mL/m in/1.73m2 CKD-EPI Creatinine Equation (2020) Performed By: #### L 300.4310, L100.0100, L300.3900, L500.2500 ####[facility] [address] [place], [address] Glucose [Mass/Vol] 93 mg/dL Normal 70-99 [facility] Comment on above: Order Comment: Do al chris with PT/INR in 1 week Performed By: #### L 300.4310, L100.0100, L300.3900, L500.2500 ####[facility] [address] [place], [address] Potassium [Moles/Vol] 5.1 mmol/L Normal 3.3-5.1 [facility] Comment on above: Order Comment: Do al chris with PT/INR in 1 week Result Comment: Hemo lysis present, Results??could be affected.?? Performed By: #### L 300.4310, L100.0100, L300.3900, L500.2500 ####[facility] [address] [place], [address] Sodium [Moles/Vol] 142 mmol/L Normal 133-145 [facility] Comment on above: Order Comment: Do al chris with PT/INR in 1 week Performed By: #### L 300.4310, L100.0100, L300.3900, L500.2500 ####[facility] [address] [place], [address] Urea nitrogen [Mass/Vol] 45 mg/dL High 4-19 [facility] Comment on above: Order Comment: Do al chris with PT/INR in 1 week Performed By: #### L 300.4310, L100.0100, L300.3900, L500.2500 ####[facility] [address] [place], [address] Basophil percentageOrdered B y: Woodburn Estuardo on 07-23-2024 Basophils/100 WBC (Bld) 0.4 % 0-1 [facility] CBC W/Diff, Automatedon 06-0 3-2024 Absolute Lymph 1.15 X10 3/uL Normal 0.83-4.51 [facility] Comment on above: Performed By: #### L 300.4310, L100.0100, L300.3900, L500.2500 ####[facility] [address] [place], [address] Absolute Neut 8.1 X10 3/uL High 2.0-7.7 [facility] Comment on above: Performed By: #### L 300.4310, L100.0100, L300.3900, L500.2500 ####[facility] [address] [place], [address] Basophils/100 WBC (Bld) 0.4 % Normal 0-1 [facility] Comment on above: Performed By: #### L 300.4310, L100.0100, L300.3900, L500.2500 ####[facility] [address] [place], [address] Eosinophils/100 WBC (Bld) 0.9 % Normal 0-5 [facility] Comment on above: Performed By: #### L 300.4310, L100.0100, L300.3900, L500.2500 ####[facility] [address] [place], [address] Erythrocyte distribution width (RBC) [Ratio] 15.7 % High 11.6-14.6 [facility] Comment on above: Performed By: #### L 300.4310, L100.0100, L300.3900, L500.2500 ####[facility] [address] [place], [address] Hematocrit (Bld) [Volume fraction] 50.1 % High 37-47 [facility] Comment on above: Performed By: #### L 300.4310, L100.0100, L300.3900, L500.2500 ####[facility] [address] [place], [address] Hemoglobin (Bld) [Mass/Vol] 16.3 g/dL High 12.0-15.0 [facility] Comment on above: Performed By: #### L 300.4310, L100.0100, L300.3900, L500.2500 ####[facility] [address] [place], [address] IG% 0.900 Normal 0.0-0.9 [facility] Comment on above: Result Comment: IG% - Immature Granulocytes (promyelocytes, myelocytes andmetamyelocytes) > 1% indicates that a LEFT SHIFT is Present. Performed By: #### L 300.4310, L100.0100, L300.3900, L500.2500 ####[facility] [address] [place], [address] Lymphocytes/100 WBC (Bld) 11.0 % Low 19-41 [facility] Comment on above: Performed By: #### L 300.4310, L100.0100, L300.3900, L500.2500 ####[facility] [address] [place], [address] MCH (RBC) [Entitic mass] 29.9 pg Normal 27.0-32.0 [facility] Comment on above: Performed By: #### L 300.4310, L100.0100, L300.3900, L500.2500 ####[facility] [address] [place], [address] MCHC (RBC) [Mass/Vol] 32.5 g/dL Normal 32-36 [facility] Comment on above: Performed By: #### L 300.4310, L100.0100, L300.3900, L500.2500 ####[facility] [address] [place], [address] MCV (RBC) [Entitic vol] 91.9 fL Normal 81-99 [facility] Comment on above: Performed By: #### L 300.4310, L100.0100, L300.3900, L500.2500 ####[facility] [address] [place], [address] Monocytes/100 WBC (Bld) 9.0 % Normal 0-10 [facility] Comment on above: Performed By: #### L 300.4310, L100.0100, L300.3900, L500.2500 ####[facility] [address] [place], [address] Neutrophils/100 WBC (Bld) 77.8 % High 47-70 [facility] Comment on above: Performed By: #### L 300.4310, L100.0100, L300.3900, L500.2500 ####[facility] [address] [place], [address] Nucleated RBC (Bld) [#/Vol] 0 10*3/uL Normal 0-5 [facility] Comment on above: Performed By: #### L 300.4310, L100.0100, L300.3900, L500.2500 ####[facility] [address] [place], [address] Platelet mean volume (Bld) [Entitic vol] 11.8 fL Normal 6.2-12.0 [facility] Comment on above: Performed By: #### L 300.4310, L100.0100, L300.3900, L500.2500 ####[facility] [address] [place], [address] Platelets (Bld) [#/Vol] 222 10*3/uL Normal 150-450 [facility] Comment on above: Performed By: #### L 300.4310, L100.0100, L300.3900, L500.2500 ####[facility] [address] [place], [address] RBC (Bld) [#/Vol] 5.45 10*6/uL High 4.2-5.4 [facility] Comment on above: Performed By: #### L 300.4310, L100.0100, L300.3900, L500.2500 ####[facility] [address] [place], [address] RDW SD 52.5 fl High 35.1-43.9 [facility] Comment on above: Performed By: #### L 300.4310, L100.0100, L300.3900, L500.2500 ####[facility] [address] [place], [address] WBC (Bld) [#/Vol] 10.5 10*3/uL Normal 4.4-11.0 [facility] Comment on above: Performed By: #### L 300.4310, L100.0100, L300.3900, L500.2500 ####[facility] [address] [place], [address] Cardiology Visit Reporton Cardiology Visit Report Normal [facility] Chest PA and Lateralon 07-23 Chest PA and Lateral Normal [facility] Eosinophil percentageOrdered By: Jordan Marte on 07-23-2024 Eosinophils/100 WBC (Bld) 0.9 % 0-5 [facility] Erythrocyte distribution wid th ratioOrdered By: Woodburn Estuardo on 07-23-2024 Erythrocyte distribution width (RBC) [Ratio] 15.7 % High 11.6-14.6 [facility] Erythrocyte distribution wid th standard deviationOrdered By: Woodburn Estuardo on 07-23-2024 Erythrocyte distribution width (RBC) [Ratio] 52.5 fl High 35.1-43.9 [facility] Hematocrit Auto (Bld) [Volum e fraction]Ordered By: Jordan Marte on 07-23-2024 Hematocrit (Bld) [Volume fraction] 50.1 % High 37-47 [facility] Hemoglobin measurementOrdere d By: Jordan Marte on 07-23-2024 Hemoglobin (Bld) [Mass/Vol] 16.3 g/dL High 12.0-15.0 [facility] Immature granulocytes/100 WB C Auto (Bld)Ordered By: Jordan Marte on 07-23-2024 Immature granulocytes/100 WBC (Bld) 0.900 % 0.0-0.9 [facility] Comment on above: IG% - Immature Granu locytes (promyelocytes, myelocytes and metamyelocytes) > 1% indicates that a LEFT SHIFT is Present. MCV (mean corpuscular volume ) determinationOrdered By: Jordan Marte on 07-23-2024 MCV (RBC) [Entitic vol] 91.9 fL 81-99 [facility] Mean corpuscular hemoglobin (MCH) determinationOrdered By: Jordan Marte on 07-23-2024 MCH (RBC) [Entitic mass] 29.9 pg 27.0-32.0 [facility] Mean corpuscular hemoglobin concentration (MCHC) determinationOrdered By: Jordan Marte on 07-23-2024 MCHC (RBC) [Mass/Vol] 32.5 g/dL 32-36 [facility] Mean platelet volume determi nationOrdered By: Jordan Marte on 07-23-2024 Platelet mean volume (Bld) [Entitic vol] 11.8 fL 6.2-12.0 [facility] Monocyte percentageOrdered B y: Jordan Marte on 07-23-2024 Monocytes/100 WBC (Bld) 9.0 % 0-10 [facility] Neutrophil percentageOrdered By: Jordan Marte on 07-23-2024 Neutrophils/100 WBC (Bld) 77.8 % High 47-70 [facility] Nucleated red blood cell per centageOrdered By: Jordan Marte on 07-23-2024 Nucleated RBC/100 WBC (Bld) [Ratio] 0 % 0-5 [facility] Partial Thromboplast Timeon 07-23-2024 aPTT Coag (Bld) [Time] 33.9 s Normal 24.1-36.2 [facility] Comment on above: Performed By: #### L 300.4310, L100.0100, L300.3900, L500.2500 ####[facility] [address] [place], [address] Platelet countOrdered By: Jorge L Marte on 07-23-2024 Platelets (Bld) [#/Vol] 222 10*3/uL 150-450 [facility] Prothrombin Time w/INRon INR Coag (PPP) [Relative time] 2.4 {INR} Normal [facility] Comment on above: Performed By: #### L 300.4310, L100.0100, L300.3900, L500.2500 ####[facility] [address] [place], [address] PT Coag (PPP) [Time] 26.4 s High 11.7-14.9 [facility] Comment on above: Performed By: #### L 300.4310, L100.0100, L300.3900, L500.2500 ####[facility] [address] [place], [address] RBC Auto (Bld) [#/Vol]Ordere d By: Jordan Marte on 07-23-2024 RBC (Bld) [#/Vol] 5.45 10*6/uL High 4.2-5.4 [facility] White blood cell (WBC) count Ordered By: Jordan Marte on 07-23-2024 WBC (Bld) [#/Vol] 10.5 10*3/uL 4.4-11.0 [facility] CNNURSEon 07-10-2024 [facility] Nurse Visit (FAMPWS) -------- LINDA PERALTA ([id number]) 1945 F Date Time Provider Department 07/10/24 [...] Status:Closed by DESIRAE ARZOLA on 07/10/24 Normal [facility] 1,25-dihydroxyvitamin D3 [Ma ss/Vol]on 07-05-2024 VIT D1,25 DIHYDROXY 41.2 pg/mL Normal 19.9-79.3 [facility] Comment on above: Order Comment: Speci men Type: BLOOD SPECIMENOrdering Facility: [facility] Address: [address] [place] [address] Performed By: #### 1 989-3, 1649-3 ####[facility] LABCLIA [id number] [place] [address] [place] 25(OH)D3 [facility]-ekaterina 2024 25-hydroxyvitamin D3 [Mass/Vol] 37.5 ng/mL Normal 31.0-80.0 [facility] Comment on above: Order Comment: Speci men Type: BLOOD SPECIMENOrdering Facility: [facility] Address: [address] [place] [address] Performed By: #### 1 989-3, 1649-3 ####[facility] LABCLIA [id number] [address] [address] [facility] [place] Calcium.ionized [Moles/Vol]o n 07-05-2024 Calcium.ionized (Bld) [Mass/Vol] 1.34 mmol/L High 1.08-1.30 [facility] Comment on above: Order Comment: Speci men Type: BLOOD SPECIMENOrdering Facility: [facility] Address: [address] [place] [address] Performed By: #### 1 995-0 ####[facility] LABIA [id number] [place] [id number] [place] [facility] Calcium.ionized adjusted to pH 7.4 (Bld) [Moles/Vol] 1.33 mmol/L High 1.08-1.30 [facility] Comment on above: Order Comment: Speci men Type: BLOOD SPECIMENOrdering Facility: [facility] Address: [address] [place] [address] Performed By: #### 1 995-0 ####[facility] LABIA [id number] [address] [address] [place] Comprehensive metabolic 2000 panelon 07-05-2024 Albumin [Mass/Vol] 4.0 g/dL Normal 3.9-4.9 [facility] Comment on above: Order Comment: Speci men Type: BLOOD SPECIMENOrdering Facility: [facility] Address: [address] [place] [address] Performed By: #### 3 016-3, 42835-7, 3024-7, 2731-8 ####[facility] LABIA [id number] [address] [address] [place] ALP [Catalytic activity/Vol] 91 U/L Normal 34-123 [facility] Comment on above: Order Comment: Speci men Type: BLOOD SPECIMENOrdering Facility: [facility] Address: [address] [place] [address] Performed By: #### 3 016-3, 47572-2, 3023-7, 2730-09 ####[facility] LABCLIA [id number] [facility] [address] [address] [place] ALT [Catalytic activity/Vol] 26 U/L Normal 7-38 [facility] Comment on above: Order Comment: Speci men Type: BLOOD SPECIMENOrdering Facility: [facility] Address: [address] [place] [address] Performed By: #### 3 016-3, 18932-5, 7, 2730-09 ####[facility] LABCLIA [id number] [place] [id number] [place] Anion gap [Moles/Vol] 15 mmol/L Normal 8-15 [facility] Comment on above: Order Comment: Speci men Type: BLOOD SPECIMENOrdering Facility: [facility] Address: [address] [place] [address] Performed By: #### 3 016-3, 40476-9, 7, 2730-09 ####[facility] LABCLIA [id number] [facility] [address] [address] [place] AST [Catalytic activity/Vol] 24 U/L Normal 13-35 [facility] Comment on above: Order Comment: Speci men Type: BLOOD SPECIMENOrdering Facility: [facility] Address: [address] [place] [address] Performed By: #### 3 016-3, 11145-2, 7, 8 ####[facility] LABCLIA [id number] [facility] [address] [address] [place] Bilirubin [Mass/Vol] 0.6 mg/dL Normal 0.2-1.3 [facility] Comment on above: Order Comment: Speci men Type: BLOOD SPECIMENOrdering Facility: [facility] Address: [address] [place] [address] Performed By: #### 3 016-3, 79904-1, 3023-08, 2730-09 ####[facility] LABCLIA [id number] [address] [address] [place] Calcium [Mass/Vol] 10.2 mg/dL Normal 8.5-10.2 [facility] Comment on above: Order Comment: Speci men Type: BLOOD SPECIMENOrdering Facility: [facility] Address: [address] [place] [address] Performed By: #### 3 016-3, 54680-0, 3023-08, 2730-09 ####[facility] LABCLIA [id number] [address] [address] [place] Chloride [Moles/Vol] 104 mmol/L Normal 98-107 [facility] Comment on above: Order Comment: Speci men Type: BLOOD SPECIMENOrdering Facility: [facility] Address: [address] [place] [address] Performed By: #### 3 016-3, 38280-8, 3023-08, 2730-09 ####[facility] LABCLIA [id number] [address] [address] [place] CO2 [Moles/Vol] 22 mmol/L Normal 22-30 [facility] Comment on above: Order Comment: Speci men Type: BLOOD SPECIMENOrdering Facility: [facility] Address: [address] [place] [address] Performed By: #### 3 016-3, 70849-9, 3023-08, 2730-09 ####[facility] LABCLIA [id number] [address] [address] [place] Creatinine [Mass/Vol] 1.34 mg/dL High 0.58-0.96 [facility] Comment on above: Order Comment: Speci men Type: BLOOD SPECIMENOrdering Facility: [facility] Address: [address] [place] [address] Performed By: #### 3 016-3, 84792-8, 3024-7, 273-8 ####[facility] LABCLIA [id number] [address] [address] [place] Creatinine and Glomerular filtration rate.predicted panel (S/P/Bld) 40 mL/min/1.73m??? Low >=60 [facility] Comment on above: Order Comment: Mistymamie fairbanks Type: BLOOD SPECIMENOrdering Facility: [facility] Address: [address] [place] [address] Result Comment: Marisabel mated Glomerular Filtration Rate [...] actual GFR. Performed By: #### 3 016-3, 11378-9, 3024-7, 273-8 ####[facility] LABCLIA [id number] [address] [address] [place] Glucose [Mass/Vol] 87 mg/dL Normal 74-99 [facility] Comment on above: Order Comment: Jody fairbanks Type: BLOOD SPECIMENOrdering Facility: [facility] Address: [address] [place] [address] Result Comment: The [place] Diabetes Association (ADA) provides guidance for cutoff [...] Standards of Medical Care in Diabetes 2016, [place] Diabetes Association. Diabetes Care. 2016.39(Suppl 1). Performed By: #### 3 016-3, 56885-7, 3023-7, 8 ####[facility] LABCLIA [id number] [address] [address] [place] Potassium [Moles/Vol] 5.1 mmol/L Normal 3.7-5.1 [facility] Comment on above: Order Comment: Speci men Type: BLOOD SPECIMENOrdering Facility: [facility] Address: [address] [place] [address] Performed By: #### 3 016-3, 62203-5, 7, 8 ####[facility] LABIA [id number] [address] [address] [place] Protein [Mass/Vol] 6.0 g/dL Low 6.3-8.0 [facility] Comment on above: Order Comment: Speci men Type: BLOOD SPECIMENOrdering Facility: [facility] Address: [address] [place] [address] Performed By: #### 3 016-3, 36777-2, 7, 2730-09 ####[facility] [id number] [address] [address] [place] Sodium [Moles/Vol] 141 mmol/L Normal 136-144 [facility] Comment on above: Order Comment: Speci men Type: BLOOD SPECIMENOrdering Facility: [facility] Address: [address] [place] [address] Performed By: #### 3 016-3, 35790-7, 7, 8 ####[facility] LABIA [id number] [address] [address] [place] Urea nitrogen [Mass/Vol] 42 mg/dL High 7-21 [facility] Comment on above: Order Comment: Speci men Type: BLOOD SPECIMENOrdering Facility: [facility] Address: [address] [place] [address] Performed By: #### 3 016-3, 05265-8, 3024-7, 2731-8 ####[facility] LABCLIA [id number] [place] [address] [place] GALAC PHOS URIDYL Omar 07-05 GALAC PHOS URIDYL TR 26.2 U/g Hb Normal >=19.4 [facility] Comment on above: Order Comment: Speci men Type: BLOOD SPECIMENOrdering Facility: [facility] Address: [address] [place] [address] Result Comment: Norm al wbucjmsmd-4-lcihzcdhg uridyltransferase activity. Results reviewed and interpreted by Fatmata Craven MD, PhD, [facility] INTERPRETIVE INFORMATION: Cdvxa-1-Kqzs Uridyltransferase One U/g Hb is equivalent to one umol/hour/gram of hemoglobin (umol/hr/g Hb). Genotype Odazd-1-Shxf Uridyltransferase activity(umol/hr/g Hb) Classic galactosemia(G/G) ..... Less than or equal to 0.7 Alva galactosemia(D/G) ............. 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 6.5-16.2 [place] homozygous(D/D) ............... 6.4-16.5 Alva carrier(D/N) .................. 12.0-24.0 Normal(N/N) .................. Greater than or equal to 19.4 This test was developed and its performance characteristics determined by [facility]. It has not been cleared or approved by the [place] Food and Drug Administration. This test was performed in a CLIA certified laboratory and is intended for clinical purposes. Counseling and informed consent are recommended for genetic testing. Consent forms are available online. Performed By: [facility] [address] [place] [address] Zone Manager: Jefferson Kerr MD, PhD CLIA Number: [id number] Performed By: #### G 1PHOS ####[facility] [id number] [place] [address] PTH-Intact SerPl-mCncon - Parathyrin.intact [Mass/Vol] 52 pg/mL Normal 15-65 [facility] Comment on above: Order Comment: Speci men Type: BLOOD SPECIMENOrdering Facility: [facility] Address: [address] [place] [address] Performed By: #### 3 016-3, 27238-2, 3023-7, 2730-09 ####[facility] LABCLIA [id number] [place] [id number] [place] T4 Free SerPl-mCncon 025 Free T4 [Mass/Vol] 1.4 ng/dL Normal 0.9-1.7 [facility] Comment on above: Order Comment: Speci men Type: BLOOD SPECIMENOrdering Facility: [facility] Address: [address] [place] [address] Performed By: #### 3 016-3, 82501-8, 302-7, 8 ####[facility] LABCLIA [id number] [place] [address] [place] TSH SerPl-aCncon 07-05-2024 TSH Qn 0.460 m[IU]/L Normal 0.270-4.200 [facility] Comment on above: Order Comment: Speci men Type: BLOOD SPECIMENOrdering Facility: [facility] Address: [address] [place] [address] Performed By: #### 3 016-3, 98532-5, 302-7, 8 ####[facility] LABCLIA [id number] [place] [address] [place] Echo Transesophageal (TOMI)on 07-03-2024 Echo Transesophageal (TOMI) Normal [facility] Transesophageal echocardiogr am reportOrdered By: Jordan Marte on 05-14-2025 Study report [facility] [address] [place] [address] Echo Transesophageal (TOMI) 07/03/24 1154 MR#: [id number] Acct: [id number] Name: LINDA PERALTA Rep #:[id number] : 1945 79 From: Jordan Gaitan Attending Dr: NIGHAT Burns atus: REG CLI Ordering Dr: Tucker Reyes Date: 07/03/24 Location: [facility] Sex: F C Admitted: Reason For Study : AORTIC STENOSIS Medication TOMI probe 6VT-D (SN 343610) passed with minimal difficulty. No complications were noted. Cetacaine Topical [place] given X3 orally. Left Ventricle Normal LV [...] Dictated: 07/03/24 1154 Date Transcribed: 07/03/24 1505 Vocational Aide: Signed [facility] Work Phone: International normalized rat io (INR) measurement by fingerstickOrdered By: Basim Velasquez on 06-21-2024 INR Coag (BldC) [Relative time] 2.0 [facility] Comment on above: Critical Value > 4.0 Protime w/INR Fingerstickon 06-21-2024 INR Coag (PPP) [Relative time] 2.0 {INR} Normal [facility] Comment on above: Result Comment: Crit ical Value > 4.0 Performed By: #### L 9200.0000 ####[facility] [address] [place], [address] Protime Coagsen 22.3 SEC High 11.7-14.9 [facility] Comment on above: Performed By: #### L 9200.0000 ####[facility] [address] [place], [address] Whole blood prothrombin time Ordered By: Basim Velasquez on 06-21-2024 PT Coag (Bld) [Time] 22.3 s High 11.7-14.9 [facility] Echo Completeon 05-24-2024 Echo Complete Normal [facility] Echocardiogram study reportO rdered By: Jordan Marte on 05-24-2024 Study report [facility] [address] [place] [address] Echo Complete 05/24/24 1348 MR#: [id number] Acct: [id number] Name: LINDA PERALTA Rep #:[id number] : 1945 79 From: Jordan Gaitan Attending Dr: NIGHAT Burns atus: REG CLI Ordering Dr: Tucker Reyes Date: 05/24/24 Location: [facility] Sex: F C Admitted: Reason For [...] Dictated: 05/24/24 1348 Date Transcribed: 05/24/24 1604 Vocational Aide: Signed [facility] Work Phone: INR Coag (BldC) [Relative ti me]Ordered By: Basim Velasquez on 05-24-2024 INR Coag (Bld) [Relative time] 2.7 {INR} [facility] Comment on above: Critical Value > 4.0 International normalized rat io (INR) measurement by fingerstickOrdered By: Basim Velasquez on 05-24-2024 INR Coag (BldC) [Relative time] 2.7 [facility] Comment on above: Critical Value > 4.0 PT Coag (Bld) [Time]Ordered By: Basim Velasquez on 05-24-2024 Bedside Prothrombin Time 28.1 SEC High 11.7-14.9 [facility] Protime w/INR Fingerstickon 05-24-2024 INR Coag (PPP) [Relative time] 2.7 {INR} Normal [facility] Comment on above: Result Comment: Crit ical Value > 4.0 Performed By: #### L 9200.0000 ####[facility] [address] [facility] [place], [place], [id number] Protime Coagsen 28.1 SEC High 11.7-14.9 [facility] Comment on above: Performed By: #### L 9200.0000 ####[facility] [address] [facility] [place], [place], [address] Whole blood prothrombin time Ordered By: Basim Velasquez on 05-24-2024 PT Coag (Bld) [Time] 28.1 s High 11.7-14.9 [facility] Protime w/INR Fingerstickon 04-30-2024 INR Coag (PPP) [Relative time] 2.5 {INR} Normal [facility] Comment on above: Result Comment: Crit ical Value > 4.0 Performed By: #### L 9200.0000 ####[facility] [address] [place], [place], [address] Protime Coagsen 26.5 SEC High 11.7-14.9 [facility] Comment on above: Performed By: #### L 9200.0000 ####[facility] [address] [place], [place], [id number] Cardiology Visit Reporton Cardiology Visit Report Normal [facility] INR Coag (BldC) [Relative ti me]Ordered By: Basim Velasquez on 04-26-2024 INR Coag (Bld) [Relative time] 2.5 {INR} [facility] Comment on above: Critical Value > 4.0 International normalized rat io (INR) measurement by fingerstickOrdered By: Basim Velasquez on 04-26-2024 INR Coag (BldC) [Relative time] 2.5 [facility] Comment on above: Critical Value > 4.0 PT Coag (Bld) [Time]Ordered By: Basim Velasquez on 04-26-2024 Bedside Prothrombin Time 26.5 SEC High 11.7-14.9 [facility] Whole blood prothrombin time Ordered By: Basim Velasquez on 04-26-2024 PT Coag (Bld) [Time] 26.5 s High 11.7-14.9 [facility] Blood urea nitrogen (BUN)/cr eatinine ratioOrdered By: Jennifer Tarango on 04-03-2024 Urea nitrogen/Creatinine [Mass ratio] 21.8 mg/mg High 10-20 [facility] Carbon dioxide measurementOr dered By: Jennifer Tarango on 04-03-2024 CO2 [Moles/Vol] 26.0 mmol/L 21.0-32.0 [facility] Chloride measurementOrdered By: Jennifer Tarango on 04-03-2024 Chloride [Moles/Vol] 107 mmol/L 98-107 [facility] Estimated glomerular filtrat ion rate (GFR) AmericanOrdered By: Jennifer Tarango on 04-03-2024 Estimated GFR (MDRD) Amer 46 mL/min Low >60 [facility] Comment on above: GFR Calc Glomerular filtration rate ( GFR) estimationOrdered By: Jennifer Tarango on 04-03-2024 Estimated GFR (MDRD) Non-Af Amer 38 mL/min Low >60 [facility] Comment on above: Non- GFR Calc GFR/1.73 sq M.predicted among non-blacks MDRD (S/P/Bld) [Vol rate/Area] 38 mL/min/{1.73_m2} Low >60 [facility] Comment on above: Non- GFR Calc Glucose measurementOrdered B y: Jennifer Tarango on 04-03-2024 Glucose [Mass/Vol] 152 mg/dL High 74-106 [facility] Comment on above: Fasting Glucose resu lt greater than or equal to 126 mg/dL suggests DIABETES MELLITUS per A.D.A. criteria. Phosphorus measurementOrdere d By: Jennifer Tarango on 04-03-2024 Phosphorus Level 2.3 mg/dL Low 2.5-4.9 [facility] Potassium measurementOrdered By: Jennifer Tarango on 04-03-2024 Potassium [Moles/Vol] 4.2 mmol/L 3.5-5.1 [facility] Renal Profileon 04-03-2024 Albumin [Mass/Vol] 3.4 g/dL Normal 3.2-5.0 [facility] Comment on above: Performed By: #### L 500.3600 ####[facility] [address] [place], [address] BUN/CRE 21.8 RATIO High 10-20 [facility] Comment on above: Performed By: #### L 500.3600 ####[facility] [address] [place], [address] CA,Total 9.3 mg/dL Normal 8.5-10.1 [facility] Comment on above: Performed By: #### L 500.3600 ####[facility] [address] [place], [address] Chloride [Moles/Vol] 107 mmol/L Normal 98-107 [facility] Comment on above: Performed By: #### L 500.3600 ####[facility] [address] [place], [address] CO2 [Moles/Vol] 26.0 mmol/L Normal 21.0-32.0 [facility] Comment on above: Performed By: #### L 500.3600 ####[facility] [address] [place], [address] Creatinine [Mass/Vol] 1.42 mg/dL High 0.55-1.02 [facility] Comment on above: Result Comment: The validity of the calculated GFR GFRAA in patients over70 years has not been determined. Clinical correlation isessential. Performed By: #### L 500.3600 ####[facility] [address] [place], [address] EST GFR - AA 46 mL/min Low >60 [facility] Comment on above: Result Comment: Afri can [place] GFR Calc Performed By: #### L 500.3600 ####[facility] [address] [place], [address] GFR/1.73 sq M.predicted among non-blacks MDRD (S/P/Bld) [Vol rate/Area] 38 mL/min/{1.73_m2} Low >60 [facility] Comment on above: Result Comment: Non- GFR Calc Performed By: #### L 500.3600 ####[facility] [address] [place], [address] Glucose [Mass/Vol] 152 mg/dL High 74-106 [facility] Comment on above: Result Comment: Fast ing Glucose result greater than or equal to 126 mg/dLsuggests DIABETES MELLITUS per A.D.A. criteria. Performed By: #### L 500.3600 ####[facility] [address] [place], [address] Phosphate [Mass/Vol] 2.3 mg/dL Low 2.5-4.9 [facility] Comment on above: Performed By: #### L 500.3600 ####[facility] [address] [place], [address] Potassium [Moles/Vol] 4.2 mmol/L Normal 3.5-5.1 [facility] Comment on above: Performed By: #### L 500.3600 ####[facility] [address] [place], [address] Sodium [Moles/Vol] 140 mmol/L Normal 136-145 [facility] Comment on above: Performed By: #### L 500.3600 ####[facility] [address] [place], [address] Urea nitrogen [Mass/Vol] 31 mg/dL High 09-06 [facility] Comment on above: Performed By: #### L 500.3600 ####[facility] [address] [place], [address] Serum or plasma albumin scott urement (mass/volume)Ordered By: Jennifer Tarnago on 04-03-2024 Albumin [Mass/Vol] 3.4 g/dL 3.2-5.0 [facility] Serum or plasma calcium scott urement (mass/volume)Ordered By: Jennifer Tarango on 04-03-2024 Calcium [Mass/Vol] 9.3 mg/dL 8.5-10.1 [facility] Serum or plasma creatinine m easurement (mass/volume)Ordered By: Jennifer Tarango on 04-03-2024 Creatinine [Mass/Vol] 1.42 mg/dL High 0.55-1.02 [facility] Comment on above: The validity of the calculated GFR & GFRAA in patients over 70 years has not been determined. Clinical correlation is essential. Serum or plasma urea nitroge n measurement (mass/volume)Ordered By: Jennifer Tarango on 04-03-2024 Urea nitrogen [Mass/Vol] 31 mg/dL High 09-06 [facility] Sodium levelOrdered By: Dustin Tarango on 04-03-2024 Sodium [Moles/Vol] 140 mmol/L 136-145 [facility] INR Coag (BldC) [Relative ti me]Ordered By: Basim Velasquez on 03-21-2024 INR Coag (Bld) [Relative time] 2.3 {INR} [facility] Comment on above: Critical Value > 4.0 International normalized rat io (INR) measurement by fingerstickOrdered By: Basim Velasquez on 03-21-2024 INR Coag (BldC) [Relative time] 2.3 [facility] Comment on above: Critical Value > 4.0 PT Coag (Bld) [Time]Ordered By: Basim Velasquez on 03-21-2024 Bedside Prothrombin Time 24.0 SEC High 11.7-14.9 [facility] Protime w/INR Fingerstickon 03-21-2024 INR Coag (PPP) [Relative time] 2.3 {INR} Normal [facility] Comment on above: Result Comment: Crit ical Value > 4.0 Performed By: #### L 9200.0000 ####[facility] [address] [place], [address] Protime Coagsen 24.0 SEC High 11.7-14.9 [facility] Comment on above: Performed By: #### L 9200.0000 ####[facility] [address] [place], [address] Whole blood prothrombin time Ordered By: Basim Velasquez on 03-21-2024 PT Coag (Bld) [Time] 24.0 s High 11.7-14.9 [facility] Prothrombin Time w/INRon INR Normal [facility] Comment on above: Result Comment: UNRULY MAYNARDTICK Performed By: #### L 300.3900, L500.3600 ####[facility] [address] [place], [address] PROTIME Normal 11.7-14.9 [facility] Comment on above: Result Comment: UNRULY ERSTICK Performed By: #### L 300.3900, L500.3600 ####[facility] [address] [place], [address] Protime w/INR Fingerstickon 02-28-2024 INR Coag (PPP) [Relative time] 3.1 {INR} Normal [facility] Comment on above: Result Comment: Crit ical Value > 4.0 Performed By: #### L 9200.0000 ####[facility] [address] [place], [address] Protime Coagsen 32.1 SEC High 11.7-14.9 [facility] Comment on above: Performed By: #### L 9200.0000 ####[facility] [address] [place], [address] Renal Profileon 02-28-2024 ALB Normal 3.2-5.0 [facility] Comment on above: Order Comment: RENAL IS FOR Result Comment: FING ERSTICK Performed By: #### L 300.3900, L500.3600 ####[facility] [address] [place], [address] BUN Normal 7-18 [facility] Comment on above: Order Comment: RENAL IS FOR Result Comment: FING ERSTICK Performed By: #### L 300.3900, L500.3600 ####[facility] [address] [place], [address] BUN/CRE Normal 10-20 [facility] Comment on above: Order Comment: RENAL IS FOR Result Comment: FING ERSTICK Performed By: #### L 300.3900, L500.3600 ####[facility] [address] [place], [address] CA,Total Normal 8.5-10.1 [facility] Comment on above: Order Comment: RENAL IS FOR Result Comment: FING ERSTICK Performed By: #### L 300.3900, L500.3600 ####[facility] [address] [place], [address] CL Normal 98-107 [facility] Comment on above: Order Comment: RENAL IS FOR Result Comment: FING ERSTICK Performed By: #### L 300.3900, L500.3600 ####[facility] [address] [place], [address] CO2 Normal 21.0-32.0 [facility] Comment on above: Order Comment: RENAL IS FOR Result Comment: FING ERSTICK Performed By: #### L 300.3900, L500.3600 ####[facility] [address] [place], [address] CREAT,SERUM Normal 0.55-1.02 [facility] Comment on above: Order Comment: RENAL IS FOR Result Comment: FING ERSTICK Performed By: #### L 300.3900, L500.3600 ####[facility] [address] [place], [address] EST GFR Normal >60 [facility] Comment on above: Order Comment: RENAL IS FOR Result Comment: FING ERSTICK Performed By: #### L 300.3900, L500.3600 ####[facility] [address] [place], [address] EST GFR - AA Normal >60 [facility] Comment on above: Order Comment: RENAL IS FOR Result Comment: FING ERSTICK Performed By: #### L 300.3900, L500.3600 ####[facility] [address] [place], [address] GLU Normal 74-106 [facility] Comment on above: Order Comment: RENAL IS FOR Result Comment: FING ERSTICK Performed By: #### L 300.3900, L500.3600 ####[facility] [address] [place], [address] PHOS Normal 2.5-4.9 [facility] Comment on above: Order Comment: RENAL IS FOR Result Comment: FING ERSTICK Performed By: #### L 300.3900, L500.3600 ####[facility] [address] [place], [address] Potassium Normal 3.5-5.1 [facility] Comment on above: Order Comment: RENAL IS FOR Result Comment: FING ERSTICK Performed By: #### L 300.3900, L500.3600 ####[facility] [address] [place], [address] Renal Profile Normal 136-145 [facility] Comment on above: Order Comment: RENAL IS FOR Result Comment: FING ERSTICK Performed By: #### L 300.3900, L500.3600 ####[facility] [address] [place], [address] CNPNon 02-22-2024 [facility] Telephone (INTMWS) -------- LINDA PERALTA ([id number]) 1945 F Date Time Provider Department 02/22/24 [...] her right thyroid. She should have her housing liaison follow up on this at her next routine appointment. Carlos Roe RN 02/22/2024 9:16 AM Signed Pt called and is notified of results and given providers message. Pt voices understanding. States her Band Tier is Dr. Alexander Gregory in [place] at [facility]. 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 Will fax this msg and CT [...] Status:Closed by CARLOS ROE on 02/22/24 Normal [facility] Basic metabolic 2000 panelon 02-01-2024 Anion gap [Moles/Vol] 12 mmol/L Normal 8-15 [facility] Comment on above: Order Comment: Speci men Type: BLOOD SPECIMENOrdering Facility: [facility] Address: [address] [place] [address] Performed By: #### 2 4321-2 ####[facility] [id number] [place] [id number] [place] Calcium [Mass/Vol] 9.9 mg/dL Normal 8.5-10.2 [facility] Comment on above: Order Comment: Speci men Type: BLOOD SPECIMENOrdering Facility: [facility] Address: [address] [place] [address] Performed By: #### 2 4321-2 ####[facility] MILLTOWNCLIA [id number] [place] [address] [place] Chloride [Moles/Vol] 108 mmol/L High 98-107 [facility] Comment on above: Order Comment: Speci men Type: BLOOD SPECIMENOrdering Facility: [facility] Address: [address] [place] [address] Performed By: #### 2 4321-2 ####[facility] [id number] [place] [address] [place] CO2 [Moles/Vol] 23 mmol/L Normal 22-30 [facility] Comment on above: Order Comment: Speci men Type: BLOOD SPECIMENOrdering Facility: [facility] Address: [address] [place] [address] Performed By: #### 2 4321-2 ####[facility] [id number] [place] [address] [place] Creatinine [Mass/Vol] 1.36 mg/dL High 0.58-0.96 [facility] Comment on above: Order Comment: Speci men Type: BLOOD SPECIMENOrdering Facility: [facility] Address: [address] [place] [address] Performed By: #### 2 4321-2 ####[facility] [id number] [address] OF [facility] Creatinine and Glomerular filtration rate.predicted panel (S/P/Bld) 39 mL/min/1.73m??? Low >=60 [facility] Comment on above: Order Comment: Speci men Type: BLOOD SPECIMENOrdering Facility: [facility] Address: [address] [place] [address] Result Comment: Marisabel mated Glomerular Filtration Rate [...] actual GFR. Performed By: #### 2 4321-2 ####[facility] MILLTOWNCLIA [id number] [place] [address] [place] Glucose [Mass/Vol] 93 mg/dL Normal 74-99 [facility] Comment on above: Order Comment: Speci men Type: BLOOD SPECIMENOrdering Facility: [facility] Address: [address] [place], [place] [address] Result Comment: The [place] Diabetes Association (ADA) provides guidance for cutoff [...] Standards of Medical Care in Diabetes 2016, [place] Diabetes Association. Diabetes Care. 2016.39(Suppl 1). Performed By: #### 2 4321-2 ####[facility] MILLTOWNCLIA [id number] [place] [address] [place] Potassium [Moles/Vol] 3.9 mmol/L Normal 3.7-5.1 [facility] Comment on above: Order Comment: Speci men Type: BLOOD SPECIMENOrdering Facility: [facility] Address: [address] [place] [address] Performed By: #### 2 4321-2 ####[facility] MILLTOWNCLIA [id number] [place] [address] [place] Sodium [Moles/Vol] 143 mmol/L Normal 136-144 [facility] Comment on above: Order Comment: Speci men Type: BLOOD SPECIMENOrdering Facility: [facility] Address: [address] [place] [address] Performed By: #### 2 4321-2 ####[facility] [place] [id number] [address] [place] Urea nitrogen [Mass/Vol] 39 mg/dL High 7-21 [facility] Comment on above: Order Comment: Speci men Type: BLOOD SPECIMENOrdering Facility: [facility] Address: [address] [place] [id number] Performed By: #### 2 4321-2 ####[facility] [place] [id number] [address] [place] CT CHEST WO IVCONon 02-01-20 CT CHEST WO IVCON * * *Final Report* * * DATE OF EXAM: Feb 01 2024 11:20AM [facility] - CT CHEST WO IVCON [...] be communicated with the ordering provider via [employer] staff message or phone message by [employer] within 2 business days of report finalization. --END OF FINDING-- Vocational Aide: ALEXANDRUB Transcribe Date/Time: Feb 06 2024 12:06P Dictated by : DESIRAE MOSELEY MD This examination was interpreted and the report reviewed and electronically signed by: DESIRAE MOSELEY MD on Feb 06 2024 12:23PM EST [id number] ACTIONABLE Invalid Interpretation Code [facility] Lipid 1996 panelon 4 Cholesterol [Mass/Vol] 169 mg/dL Normal <200 [facility] Comment on above: Order Comment: Speci men Type: BLOOD SPECIMENOrdering Facility: [facility] Address: [address] [place] [address] Result Comment: <200 mg/dL, Desirable 200-239 mg/dL, Borderline high >239 mg/dL, High Performed By: #### 2 4331-1 ####[facility] LABCLIA [id number] [place] [address] [place] [facility] [id number] [place] [address] [place] Cholesterol in HDL [Mass/Vol] 78 mg/dL Normal >39 [facility] Comment on above: Order Comment: Jody fairbanks Type: BLOOD SPECIMENOrdering Facility: [facility] Address: [address] [place] [address] Result Comment: 40-5 9 mg/dL, Acceptable >59 mg/dL, High: Negative risk factor for coronary heart disease <40 mg/dL, Low: Positive risk factor for coronary heart disease Performed By: #### 2 4331-1 ####[facility] LABCLIA [id number] [address] [id number] [address] [place] Cholesterol in LDL [Mass/Vol] 79 mg/dL Normal <100 [facility] Comment on above: Order Comment: Jody fairbanks Type: BLOOD SPECIMENOrdering Facility: [facility] Address: [address] [place] [address] Result Comment: <100 mg/dL, Optimal 100-129 mg/dL, Near optimal/above optimal 130-159 mg/dL, Borderline high 160-189 mg/dL, High >189 mg/dL, Very high Secondary prevention optimal LDL Cholesterol levels are recommended to be < 70 mg/dL Performed By: #### 2 4331-1 ####[facility] LABCLIA [id number] [id number] [place] [address] [place] Cholesterol in LDL/Cholesterol in HDL [Mass ratio] 1.01 {ratio} Normal <2.54 [facility] Comment on above: Order Comment: Jody tiki Type: BLOOD SPECIMENOrdering Facility: [facility] Address: [address] [place] [address] Result Comment: Bernardo villagomez: 1. National Cholesterol Education Program ATP III Guideline At-A-Glance Quick Desk Reference: National Heart, Lung, and Blood [place]. National Institutes of Health. 2001: NIH Publication No. 01-3305. 2. An International Atherosclerosis Society position paper: global recommendations for the management of dyslipidemia: executive summary, Atherosclerosis. 2014: 232(2):410-413. Performed By: #### 2 4331-1 ####[facility] LABCLIA [id number] [address] [id number] [place] [address] [place] Cholesterol in VLDL [Mass/Vol] 12 mg/dL Normal <30 [facility] Comment on above: Order Comment: Speci men Type: BLOOD SPECIMENOrdering Facility: [facility] Address: [address] [place] [address] Performed By: #### 2 4331-1 ####[facility] LABCLIA [id number] [id number] [address] [place] Cholesterol non HDL [Mass/Vol] 91 mg/dL Normal <130 [facility] Comment on above: Order Comment: Speci men Type: BLOOD SPECIMENOrdering Facility: [facility] Address: [address] [place] [address] Result Comment: <130 mg/dL, Optimal 130-159 mg/dL, Near optimal/above optimal 160-189 mg/dL, Borderline high 190-219 mg/dL, High >219 mg/dL, Very high Secondary prevention optimal non HDL Cholesterol levels are recommended to be <100 mg/dL Performed By: #### 2 4331-1 ####[facility] LABCLIA [id number] [address] [id number] [place] [address] [place] Cholesterol.total/Chol esterol in HDL [Mass ratio] 2.17 {ratio} Normal <5.10 [facility] Comment on above: Order Comment: Speci men Type: BLOOD SPECIMENOrdering Facility: [facility] Address: [address] [place] [address] Performed By: #### 2 4331-1 ####[facility] LABCLIA [id number] [address] [id number] [place] [address] [place] FASTING TIME 12 hrs Normal [facility] Comment on above: Order Comment: Speci men Type: BLOOD SPECIMENOrdering Facility: [facility] Address: [address] [place] [address] Performed By: #### 2 4331-1 ####[facility] LABCLIA [id number] [address] [id number] [address] [place] Triglyceride [Mass/Vol] 60 mg/dL Normal <150 [facility] Comment on above: Order Comment: Speci men Type: BLOOD SPECIMENOrdering Facility: [facility] Address: [address] [place] [address] Result Comment: <150 mg/dL, Normal 150-199 mg/dL, Borderline high 200-499 mg/dL, High >499 mg/dL, Very high Performed By: #### 2 4331-1 ####[facility] LABCLIA [id number] [address] [id number] [address] [place] CNOVon 01-23-2024 CNOV Office Visit (INTMWS ) -------- LINDA PERALTA ([id number]) 1945 F Date Time Provider Department 01/23/24 [...] - General Outside specialists seen: Cardiology-Dr. Ortega [facility] Nephrology- Dr. Jennifer Tarango Wire Saw Operator- Dr. Isreal Carpio Endocrinology- Dr. Alexander Gregory. [...] PM Signed This note was created using [employer]. Subjective Linda Peralta is a 78 year [...] Use Vapin (more content not included)... Normal [facility] CNPNon 01-19-2024 CNPN Telephone (INTMWS) -------- TINOLINDA LOVETT ([id number]) 1945 F Date Time Provider Department 01/19/24 [...] you in caring for your patient. ? [facility] is committed to? providing safe care [...] Atopic neuroderm (more content not included)... Normal [facility] CNNURSEon 01-11-2024 CNNURSE Nurse Visit (FAMPWS) -------- LINDA PERALTA ([id number]) 1945 F Date Time Provider Department 01/11/24 2:00 PM [place] [facility] During your visit today, we recorded [...] Status:Closed by DESIRAE ARZOLA on 01/11/24 Normal [facility] Protime w/INR Fingerstickon 01-04-2024 INR Coag (PPP) [Relative time] 2.8 {INR} Normal [facility] Comment on above: Result Comment: Crit ical Value > 4.0 Performed By: #### L 9200.0000 ####[facility] [address] [place], [place], [id number] Protime Coagsen 29.2 SEC High 11.7-14.9 [facility] Comment on above: Performed By: #### L 9200.0000 ####[facility] [address] [place], [address] XR CHEST 2V FRONTAL/LATon XR CHEST 2V [...] be communicated with the ordering provider via [employer] staff message by [employer] within 2 business days of report finalization. Vocational Aide: PSCB Transcribe Date/Time: Jan 01 2024 1:57P Dictated by : ELIZABETH GEORGE MD This examination was interpreted and the report reviewed and electronically signed by: ELIZABETH GEORGE MD on Jan 01 2024 1:58PM EST [id number] ACTIONABLE Invalid Interpretation Code [facility] XR Chest PA and LateralOrder ed By: Cc Provider on 01-01-2024 Interpretation and review of laboratory results Abnormal [facility] Radiology Result ACTIONABLE Abnormal [facility] Comment on above: This report contains [...] contact your provider for the next steps. [facility] XR Chest PA and Lateralon IMPRESSION: Redemonstration of 2.1 cm nodular density in the right lower lobe. Incidental Finding: Follow-up Acuity: Incidental Finding: Suspicious appearing incidentally detected nodular lung density on CXR Routing Code: RI_1 Recommendation: CT Chest WO IVCON Time Frame: in 4 weeks COMMUNICATION:? Results will be communicated with the ordering provider via [employer] staff message by [employer] Support [employer] within 2 business days of report finalization. Vocational Aide: STEPAN Transcribe Date/Time: Jan 01 2024 1:57P Dictated by : ELIZABETH GEORGE MD This examination was interpreted and the report reviewed and electronically signed by: ELIZABETH GEORGE MD on Jan 01 2024 1:58PM [facility] DIVISION OF RADIOLOGY * * *Final [...] the thoracic spine. DIVISION OF RADIOLOGY Provider, [facility] - 01/01/2024 * * *Final Report* * [...] be communicated with the ordering provider via [employer] staff message by [employer] within 2 business days of report finalization. Vocational Aide: STEPNA Transcribe Date/Time: Jan 01 2024 1:57P Dictated by : ELIZABETH GEORGE MD This examination was interpreted and the report reviewed and electronically signed by: ELIZABETH GEORGE MD on Jan 01 2024 1:58PM EST [facility] Radiology Study observation (narrative) [facility] Capillary blood internationa l normalized ratio (INR)Ordered By: Basim Velasquez on 06-19-2023 INR Coag (BldC) [Relative time] 2.0 [facility] Comment on above: Critical Value > 4.0 Whole blood prothrombin time Ordered By: Basim Velasquez on 06-19-2023 PT Coag (Bld) [Time] 21.3 s 11.7-14.9 [facility] Capillary blood internationa l normalized ratio (INR)Ordered By: Basim Velasquez on 05-31-2023 INR Coag (BldC) [Relative time] 2.1 [facility] Comment on above: Critical Value > 4.0 Whole blood prothrombin time Ordered By: Basim Velasquez on 05-31-2023 PT Coag (Bld) [Time] 22.2 s 11.7-14.9 [facility] 1,25-dihydroxyvitamin D3 [Ma ss/Vol]on 05-26-2023 Interpretation and review of laboratory results Abnormal [facility] Basic metabolic 2000 panelon 05-26-2023 Anion gap [Moles/Vol] 11 mmol/L 10 - 2 0 mmol/L [facility] Calcium [Mass/Vol] 8.6 mg/dL 8.6 - 10. 3 mg/dL [facility] Chloride [Moles/Vol] 112 mmol/L High 98 - 10 7 mmol/L [facility] CO2 [Moles/Vol] 22 mmol/L 21 - 32 mmol/L [facility] Creatinine [Mass/Vol] 1.60 mg/dL High 0.50 - 1.05 mg/dL [facility] GFR/1.73 sq M.predicted among non-blacks MDRD (S/P/Bld) [Vol rate/Area] 32 mL/min/{1.73_m2} Low - PINF [facility] Comment on above: Calculations of marisabel mated GFR are performed using the 2020 CKD-EPI Study Refit equation without the race variable for the IDMS-Traceable creatinine methods. https://jasn.asnjournals.org/content//ASN.41297 01521 Glucose [Mass/Vol] 84 mg/dL 74 - 99 mg/dL [facility] Interpretation and review of laboratory results Abnormal [facility] Potassium [Moles/Vol] 4.3 mmol/L 3.5 - 5.3 mmol/L [facility] Sodium [Moles/Vol] 141 mmol/L 136 - 145 mmol/L [facility] Urea nitrogen [Mass/Vol] 25 mg/dL High 6 - 23 mg/dL [facility] Anion gap [Moles/Vol] 11 mmol/L Normal 10-20 [facility] Comment on above: Performed By: #### 1 994-3 #### THELMA DENNISON ([id number]) [facility] [address] [place] [address] Calcium [Mass/Vol] 8.6 mg/dL Normal 8.6-10.3 [facility] Comment on above: Performed By: #### 1 994-3 #### THELMA DENNISON ([id number]) [facility] [address] [place] [address] Chloride [Moles/Vol] 112 mmol/L High 98-107 [facility] Comment on above: Performed By: #### 1 994-3 #### THELMA DENNISON ([id number]) [facility] [address] [place] [address] CO2 [Moles/Vol] 22 mmol/L Normal 21-32 [facility] Comment on above: Performed By: #### 1 994-3 #### THELMA DENNISON ([id number]) [facility] [address] [place] [address] Creatinine [Mass/Vol] 1.60 mg/dL High 0.50-1.05 [facility] Comment on above: Performed By: #### 1 994-3 #### THELMA DENNISON ([id number]) [facility] [address] [place] [address] Glomerular filtration rate/1.73 sq M.predicted 32 mL/min/1.73m*2 Low >60 [facility] Comment on above: Result Comment: Calc ulations of estimated GFR are performed using the 2020 CKD-EPI Study Refit equation without the race variable for the IDMS-Traceable creatinine methods. https://jasn.asnjournals.org/content/early//ASN.55447 00817 Performed By: #### 1 994-3 #### THELMA DENNISON ([id number]) [facility] [address] [place] [address] Glucose [Mass/Vol] 84 mg/dL Normal 74-99 [facility] Comment on above: Performed By: #### 1 994-3 #### THELMA MONGE RIO ORTEGA ([id number]) [facility] [address] [place] [address] Potassium [Moles/Vol] 4.3 mmol/L Normal 3.5-5.3 [facility] Comment on above: Performed By: #### 1 994-3 #### DELORESIBLIBRADO MONGE RIO ORTEGA ([id number]) [facility] [address] [place] [address] Sodium [Moles/Vol] 141 mmol/L Normal 136-145 [facility] Comment on above: Performed By: #### 1 994-3 #### THELMA DENNISON ([id number]) [facility] [address] [place] [address] Urea nitrogen [Mass/Vol] 25 mg/dL High 6-23 [facility] Comment on above: Performed By: #### 1 994-3 #### THELMA DENNISON ([id number]) [facility] [address] [place] [address] CBC panel Auto (Bld)on 05-25 Erythrocyte distribution width (RBC) [Ratio] 14.5 % 11.5 - 14.5 % [facility] Hematocrit (Bld) [Volume fraction] 41.0 % 36.0 - 46.0 % [facility] Hemoglobin (Bld) [Mass/Vol] 13.4 g/dL 12.0 - 16.0 g/dL [facility] Interpretation and review of laboratory results Abnormal [facility] MCH (RBC) [Entitic mass] 29.4 pg 26.0 - 34.0 pg [facility] MCHC (RBC) [Mass/Vol] 32.7 g/dL 32.0 - 36.0 g/dL [facility] MCV (RBC) [Entitic vol] 90 fL 80 - 100 fL [facility] Nucleated RBC/100 WBC (Bld) [Ratio] 0.0 % [facility] Platelets (Bld) [#/Vol] 251 10*3/uL [facility] RBC (Bld) [#/Vol] 4.56 10*6/uL [facility] WBC (Bld) [#/Vol] 12.9 10*3/uL High [facility] Erythrocyte distribution width (RBC) [Ratio] 14.5 % Normal 11.5-14.5 [facility] Comment on above: Performed By: #### 3 4529-8 #### THELMA DENNISON ([id number]) [facility] [address] [place] [address] Hematocrit (Bld) [Volume fraction] 41.0 % Normal 36.0-46.0 [facility] Comment on above: Performed By: #### 3 4529-8 #### THELMA DENNISON ([id number]) [facility] [address] [place] [address] Hemoglobin (Bld) [Mass/Vol] 13.4 g/dL Normal 12.0-16.0 [facility] Comment on above: Performed By: #### 3 4529-8 #### THELMA DENNISON ([id number]) [facility] [address] [place] [address] MCH (RBC) [Entitic mass] 29.4 pg Normal 26.0-34.0 [facility] Comment on above: Performed By: #### 3 4529-8 #### THELMA DENNISON ([id number]) [facility] [address] [place] [address] MCHC (RBC) [Mass/Vol] 32.7 g/dL Normal 32.0-36.0 [facility] Comment on above: Performed By: #### 3 4529-8 #### THELMA DENNISON ([id number]) [facility] [address] [place] [address] MCV (RBC) [Entitic vol] 90 fL Normal 80-100 [facility] Comment on above: Performed By: #### 3 4529-8 #### THELMA DENNISON ([id number]) [facility] [address] [place] [address] Nucleated RBC/100 WBC (Bld) [Ratio] 0.0 /100 WBCs Normal 0.0-0.0 [facility] Comment on above: Performed By: #### 3 4529-8 #### THELMA DENNISON ([id number]) [facility] [address] [place] [address] Platelets (Bld) [#/Vol] 251 x10*3/uL Normal 150-450 [facility] Comment on above: Performed By: #### 3 4529-8 #### THELMA DENNISON ([id number]) [facility] [address] [place] [address] RBC (Bld) [#/Vol] 4.56 x10*6/uL Normal 4.00-5.20 [facility] Comment on above: Performed By: #### 3 4529-8 #### THELMA DENNISON ([id number]) [facility] [address] [place] [address] WBC (Bld) [#/Vol] 12.9 x10*3/uL High 4.4-11.3 [facility] Comment on above: Performed By: #### 3 4529-8 #### THELMA DENNISON ([id number]) [facility] [address] [place] [address] Coagulation tissue factor in ducedon 05-26-2023 PT Coag (PPP) [Time] 22.7 s High 9.8-12.8 [facility] Comment on above: Performed By: #### 3 4529-8 #### THELMA DENNISON ([id number]) [facility] [address] [place] [address] No Panel Informationon 05-25 Extra Tube Hold for add-ons. [facility] Comment on above: Auto resulted. [facility] PT Coag (PPP) [Time]on 05-25 INR Coag (PPP) [Relative time] 2.0 High 0.9-1.1 [facility] Comment on above: Performed By: #### 3 4529-8 #### THELMA EDNNISON ([id number]) [facility] [address] [place] [address] INR Coag (PPP) [Relative time] 2.0 {INR} High 0.9 - 1.1 [facility] Interpretation and review of laboratory results Abnormal [facility] Protime-INRon 05-26-2023 PT Coag (PPP) [Time] 22.7 s High [facility] Vitamin D 1,25 Dihydroxy (fo r eval of hypercalcemia)on 05-26-2023 1,25-dihydroxyvitamin D3 [Mass/Vol] 179.0 pg/mL High 19.9 - 79.3 pg/mL [facility] Comment on above: INTERPRETIVE INFORMA TION: Vitamin D, 1,25-Dihydroxy This test is primarily indicated during patient evaluation for hypercalcemia and renal failure. A normal result does not rule out Vitamin D deficiency. The recommended test for diagnosing Vitamin D deficiency is Vitamin D 25-hydroxy. Performed By: [facility] [address] [place] [id number] Zone Manager: Jefferson Kerr MD, PhD CLIA Number: [id number] 25-hydroxyvitamin D3 [Mass/V ol]on 05-25-2023 Interpretation and review of laboratory results Normal [facility] Deficiency: < 20 ng/ ml Insufficiency: 20-29 ng/ml Sufficiency: 30-100 ng/ml This assay accurately quantifies the sum of Vitamin D3, 25-Hydroxy and Vitamin D2,25-Hydroxy. [facility] Basic metabolic 2000 panelon 05-25-2023 Anion gap [Moles/Vol] 11 mmol/L Normal 10-20 [facility] Comment on above: Performed By: #### 3 4529-8 #### THELMA DENNISON ([id number]) [facility] ([facility]) [address] [place] [address] Calcium [Mass/Vol] 9.9 mg/dL Normal 8.6-10.3 [facility] Comment on above: Performed By: #### 3 4529-8 #### THELMA DENNISON ([id number]) [facility] ([facility]) [address] [place] [address] Chloride [Moles/Vol] 109 mmol/L High 98-107 [facility] Comment on above: Performed By: #### 3 4529-8 #### THELMA DENNISON ([id number]) [facility] ([facility]) [address] [place] [address] CO2 [Moles/Vol] 23 mmol/L Normal 21-32 [facility] Comment on above: Performed By: #### 3 4529-8 #### THELMA DENNISON ([id number]) [facility] ([facility]) [address] [place] [address] Creatinine [Mass/Vol] 1.80 mg/dL High 0.50-1.05 [facility] Comment on above: Performed By: #### 3 4529-8 #### THELMA DENNISON ([id number]) [facility] ([facility]) [address] [place] [address]99 Glomerular filtration rate/1.73 sq M.predicted 28 mL/min/1.73m*2 Low >60 [facility] Comment on above: Result Comment: Calc ulations of estimated GFR are performed using the 2020 CKD-EPI Study Refit equation without the race variable for the IDMS-Traceable creatinine methods. https://jasn.asnjournals.org/content/early//ASN.30868 23138 Performed By: #### 3 4529-8 #### THELMA DENNISON ([id number]) [facility] ([facility]) [address] [place] [address] 11656 Glucose [Mass/Vol] 135 mg/dL High 74-99 [facility] Comment on above: Performed By: #### 3 4529-8 #### THELMA DENNISON ([id number]) [facility] ([facility]) [address] [place] [address] 31365 Potassium [Moles/Vol] 3.7 mmol/L Normal 3.5-5.3 [facility] Comment on above: Performed By: #### 3 4529-8 #### THELMA DENNISON ([id number]) [facility] ([facility]) [address] [place] [address] Sodium [Moles/Vol] 139 mmol/L Normal 136-145 [facility] Comment on above: Performed By: #### 3 4529-8 #### THELMA MARIPOSA VIVAS ([id number]) [facility] ([facility]) [address] [place] [address] Urea nitrogen [Mass/Vol] 33 mg/dL High 6-23 [facility] Comment on above: Performed By: #### 3 4529-8 #### THELMA MARIPOSA VIVAS ([id number]) [facility] ([facility]) [address] [place] [address] Anion gap [Moles/Vol] 11 mmol/L 10 - 2 0 mmol/L [facility] Calcium [Mass/Vol] 9.9 mg/dL 8.6 - 10. 3 mg/dL [facility] Chloride [Moles/Vol] 109 mmol/L High 98 - 10 7 mmol/L [facility] CO2 [Moles/Vol] 23 mmol/L 21 - 32 mmol/L [facility] Creatinine [Mass/Vol] 1.80 mg/dL High 0.50 - 1.05 mg/dL [facility] GFR/1.73 sq M.predicted among non-blacks MDRD (S/P/Bld) [Vol rate/Area] 28 mL/min/{1.73_m2} Low - PINF [facility] Comment on above: Calculations of marisabel mated GFR are performed using the 2020 CKD-EPI Study Refit equation without the race variable for the IDMS-Traceable creatinine methods. https://jasn.asnjournals.org/content//ASN.28142 63404 Glucose [Mass/Vol] 135 mg/dL High 74 - 99 mg/dL [facility] Interpretation and review of laboratory results Abnormal [facility] Potassium [Moles/Vol] 3.7 mmol/L 3.5 - 5.3 mmol/L [facility] Sodium [Moles/Vol] 139 mmol/L 136 - 145 mmol/L [facility] Urea nitrogen [Mass/Vol] 33 mg/dL High 6 - 23 mg/dL [facility] Calcidiolon 05-25-2023 25-hydroxyvitamin D3 [Mass/Vol] 45 ng/mL Normal 30-100 [facility] Comment on above: Order Comment: The A PTT is no longer used for monitoring Unfractionated Heparin Therapy. For monitoring Heparin Therapy, use the Heparin Assay. Performed By: #### 3 4529-8 #### THELMA DENNISON ([id number]) [facility]) [address] [place] [address] Calcium, ionizedon Calcium.ionized (Bld) [Moles/Vol] 1.32 mmol/L 1.1 - 1.33 mmol/L [facility] Comment on above: The performance domi acteristics of ionized calcium tested in heparinized plasma or serum have been validated by the individual laboratory site where testing is performed. Testing on heparinized plasma or serum is not approved by the FDA; however, such approval is not necessary. Calcium.ionizedon 05-25-2023 Calcium.ionized (Bld) [Moles/Vol] 1.32 mmol/L Normal 1.1-1.33 [facility] Comment on above: Result Comment: The performance characteristics of ionized calcium tested in heparinized plasma or serum have been validated by the individual laboratory site where testing is performed. Testing on heparinized plasma or serum is not approved by the FDA; however, such approval is not necessary. Performed By: #### 3 4529-8 #### THELMA DENNISON ([id number]) [facility]) [address] [place] [address] Calcium.ionized (Bld) [Moles /Vol]on 05-25-2023 Interpretation and review of laboratory results Normal [facility] Coagulation tissue factor in ducedon 05-25-2023 PT Coag (PPP) [Time] 23.0 s High 9.8-12.8 [facility] Comment on above: Performed By: #### 3 4529-8 #### THELMA DENNISON ([id number]) [facility] ([facility]) [address] [place] [address] HbA1c (Bld) [Mass fraction]o n 05-25-2023 Average glucose Estimated from glycated hemoglobin (Bld) [Mass/Vol] 105 mg/dL Not Established [facility] Diagnosis of Diabetes-Adults Non-Diabetic: < or = 5.6% Increased risk for developing diabetes: 5.7-6.4% Diagnostic of diabetes: > or = 6.5% Monitoring of Diabetes Age (y)..................... .. Therapeutic Goal (%) Adults: >18..................... ....<7.0 Pediatrics: 13-18................... <7.5 Pediatrics: 7-12.................... <8.0 Pediatrics: 0-6..................... 7.5-8.5 [place] [employer]. Diabetes Care 33(S1), Feb 2009 [facility] Average glucose Estimated from glycated hemoglobin (Bld) [Mass/Vol] 105 mg/dL Normal Not Established [facility] Comment on above: Order Comment: The A PTT is no longer used for monitoring Unfractionated Heparin Therapy. For monitoring Heparin Therapy, use the Heparin Assay. Performed By: #### 3 4529-8 #### THELMA DENNISON ([id number]) [facility] ([facility]) [address] [place] [address] Hemoglobin A1Con 05-25-2023 HbA1c (Bld) [Mass fraction] 5.3 % see below [facility] Hemoglobin A1c/Hemoglobin.to gage 05-25-2023 HbA1c (Bld) [Mass fraction] 5.3 % Normal see below [facility] Comment on above: Order Comment: The A PTT is no longer used for monitoring Unfractionated Heparin Therapy. For monitoring Heparin Therapy, use the Heparin Assay. Performed By: #### 3 4529-8 #### THELMA DENNISON ([id number]) [facility] ([facility]) [address] [place] [address] No Panel Informationon 05-24 Extra Tube Hold for add-ons. [facility] Comment on above: Auto resulted. [facility] PT Coag (PPP) [Time]on 05-24 INR Coag (PPP) [Relative time] 2.0 High 0.9-1.1 [facility] Comment on above: Performed By: #### 3 4529-8 #### THELMA DENNISON ([id number]) [facility] ([facility]) [address] [place] [address] INR Coag (PPP) [Relative time] 2.0 {INR} High 0.9 - 1.1 [facility] Interpretation and review of laboratory results Abnormal [facility] PTH, Intacton 05-25-2023 Parathyrin.intact [Mass/Vol] 16.3 pg/mL Low 18.5 - 88.0 pg/mL [facility] Parathyrin related proteinon 05-25-2023 Parathyrin related protein [Moles/Vol] 1.1 pmol/L Normal < or = 4.2 [facility] Comment on above: Result Comment: ADDITIONAL INFORMATION This test was developed and its performance characteristics determined by [facility] in a manner consistent with CLIA requirements. This test has not been cleared or approved by the U.S. Food and Drug Administration. Test Performed by: [facility] [place] [address] Manager Unit: Sunny Triplett M.D. Ph.D.; CLIA# [id number] Performed By: #### 1 994-3 #### THELMA DENNISON ([id number]) [facility] ([facility]) [address] [place] [address] Parathyrin.intacton 04-04-20 24 Parathyrin.intact [Mass/Vol] 16.3 pg/mL Low 18.5-88.0 [facility] Comment on above: Performed By: #### 3 4529-8 #### THELMA DENNISON ([id number]) [facility] ([facility]) [address] [place] [address] Parathyrin.intact [Mass/Vol] on 05-25-2023 Interpretation and review of laboratory results Abnormal [facility] Phosphateon 05-25-2023 Phosphate [Mass/Vol] 3.2 mg/dL Normal 2.5-4.9 [facility] Comment on above: Result Comment: The performance characteristics of phosphorus testing in heparinized plasma have been validated by the individual laboratory site where testing is performed. Testing on heparinized plasma is not approved by the FDA; however, such approval is not necessary. Performed By: #### 3 4529-8 #### THELMA DENNISON ([id number]) [facility] ([facility]) [address] [place] [address] 26161 Phosphate [Mass/Vol]on 05-24 Interpretation and review of laboratory results Normal [facility] Phosphoruson 05-25-2023 Phosphate [Mass/Vol] 3.2 mg/dL 2.5 - 4 .9 mg/dL [facility] Comment on above: The performance domi acteristics of phosphorus testing in heparinized plasma have been validated by the individual laboratory site where testing is performed. Testing on heparinized plasma is not approved by the FDA; however, such approval is not necessary. Protime-INRon 05-25-2023 PT Coag (PPP) [Time] 23.0 s High [facility] Vitamin D 25-Hydroxy,Total ( for eval of Vitamin D levels)on 05-25-2023 25-hydroxyvitamin D3 [Mass/Vol] 45 ng/mL 30 - 100 ng/mL [facility] CBC W Auto Differential pane l (Bld)on 05-24-2023 Basophils (Bld) [#/Vol] 0.06 x10*3/uL Normal 0.00-0.10 [facility] Comment on above: Performed By: #### 5 7021-8 #### THELMA DENNISON ([id number]) [facility] ([facility]) [address] [place] [address] 18902 Basophils/100 WBC (Bld) 0.6 % Normal 0.0-2.0 [facility] Comment on above: Performed By: #### 5 7021-8 #### THELMA DENNISON ([id number]) [facility] ([facility]) [address] [place] [address] 63574 Eosinophils (Bld) [#/Vol] 1.08 x10*3/uL High 0.00-0.40 [facility] Comment on above: Performed By: #### 5 7021-8 #### THELMA DENNISON ([id number]) [facility] (C) [address] [place] [address] 51581 Eosinophils/100 WBC (Bld) 11.2 % Normal 0.0-6.0 [facility] Comment on above: Performed By: #### 5 7021-8 #### THELMA DENNISON ([id number]) [facility] ([facility]) [address] [place] [address] 29176 Erythrocyte distribution width (RBC) [Ratio] 14.2 % Normal 11.5-14.5 [facility] Comment on above: Performed By: #### 5 7021-8 #### THELMA DENNISON ([id number]) [facility] ([facility]) [address] [place] [address] 88143 Hematocrit (Bld) [Volume fraction] 39.8 % Normal 36.0-46.0 [facility] Comment on above: Performed By: #### 5 7021-8 #### THELMA DENNISON ([id number]) [facility] ([facility]) [address] [place] [address] 44415 Hemoglobin (Bld) [Mass/Vol] 13.5 g/dL Normal 12.0-16.0 [facility] Comment on above: Performed By: #### 5 7021-8 #### THELMA DENNISON ([id number]) [facility] ([facility]) [address] [place] [address] 34360 Immature granulocytes (Bld) [#/Vol] 0.09 x10*3/uL Normal 0.00-0.50 [facility] Comment on above: Performed By: #### 5 7021-8 #### THELMA DENNISON ([id number]) [facility] ([facility]) [address] [place] [address] 64497 Immature granulocytes/100 WBC (Bld) 0.9 % Normal 0.0-0.9 [facility] Comment on above: Result Comment: Linda ture Granulocyte Count (IG) includes promyelocytes, myelocytes and metamyelocytes but does not include bands. Percent differential counts (%) should be interpreted in the context of the absolute cell counts (cells/UL). Performed By: #### 5 7021-8 #### THELMA DENNISON ([id number]) [facility] ([facility]) [address] [place] [address] 52077 Lymphocytes (Bld) [#/Vol] 1.90 x10*3/uL Normal 0.80-3.00 [facility] Comment on above: Performed By: #### 5 7021-8 #### THELMA DENNISON ([id number]) [facility] ([facility]) [address] [place] [address] 94003 Lymphocytes/100 WBC (Bld) 19.8 % Normal 13.0-44.0 [facility] Comment on above: Performed By: #### 5 7021-8 #### THELMA DENNISON ([id number]) [facility] ([facility]) [address] [place] [address] 83130 MCH (RBC) [Entitic mass] 29.3 pg Normal 26.0-34.0 [facility] Comment on above: Performed By: #### 5 7021-8 #### THELMA DENNISON ([id number]) [facility] ([facility]) [address] [place] [address] 86857 MCHC (RBC) [Mass/Vol] 33.9 g/dL Normal 32.0-36.0 [facility] Comment on above: Performed By: #### 5 7021-8 #### THELMA DENNISON ([id number]) [facility] ([facility]) [address] [place] [address] 38145 MCV (RBC) [Entitic vol] 86 fL Normal 80-100 [facility] Comment on above: Performed By: #### 5 7021-8 #### THELMA DENNISON ([id number]) [facility] ([facility]) [address] [place] [address] 92228 Monocytes (Bld) [#/Vol] 0.96 x10*3/uL High 0.05-0.80 [facility] Comment on above: Performed By: #### 5 7021-8 #### THELMA DENNISON ([id number]) [facility] ([facility]) [address] [place] [address] 11697 Monocytes/100 WBC (Bld) 10.0 % Normal 2.0-10.0 [facility] Comment on above: Performed By: #### 5 7021-8 #### THELMA DENNISON ([id number]) [facility] ([facility]) [address] [place] [address] 46062 Neutrophils (Bld) [#/Vol] 5.52 x10*3/uL High 1.60-5.50 [facility] Comment on above: Result Comment: Perc ent differential counts (%) should be interpreted in the context of the absolute cell counts (cells/uL). Performed By: #### 5 7021-8 #### THELMA DENNISON ([id number]) [facility] ([facility]) [address] [place] [address] 94810 Neutrophils/100 WBC (Bld) 57.5 % Normal 40.0-80.0 [facility] Comment on above: Performed By: #### 5 7021-8 #### THELMA DENNISON ([id number]) [facility] ([facility]) [address] [place] [address] 26341 Nucleated RBC/100 WBC (Bld) [Ratio] 0.0 /100 WBCs Normal 0.0-0.0 [facility] Comment on above: Performed By: #### 5 7021-8 #### THELMA DENNISON ([id number]) [facility] ([facility]) [address] [place] [address] 53683 Platelets (Bld) [#/Vol] 249 x10*3/uL Normal 150-450 [facility] Comment on above: Performed By: #### 5 7021-8 #### THELMA DENNISON ([id number]) [facility] ([facility]) [address] [place] [address] 38850 RBC (Bld) [#/Vol] 4.61 x10*6/uL Normal 4.00-5.20 [facility] Comment on above: Performed By: #### 5 7021-8 #### THELMA DENNISON ([id number]) [facility] ([facility]) [address] [place] [address] 03544 WBC (Bld) [#/Vol] 9.6 x10*3/uL Normal 4.4-11.3 [facility] Comment on above: Performed By: #### 5 7021-8 #### THELMA DENNISON ([id number]) [facility] ([facility]) [address] [place] [address] 44540 Basophils (Bld) [#/Vol] 0.06 10*3/uL [facility] Basophils/100 WBC (Bld) 0.6 % 0.0 - 2.0 % [facility] Eosinophils (Bld) [#/Vol] 1.08 10*3/uL High [facility] Eosinophils/100 WBC (Bld) 11.2 % 0.0 - 6.0 % [facility] Erythrocyte distribution width (RBC) [Ratio] 14.2 % 11.5 - 14.5 % [facility] Hematocrit (Bld) [Volume fraction] 39.8 % 36.0 - 46.0 % [facility] Hemoglobin (Bld) [Mass/Vol] 13.5 g/dL 12.0 - 16.0 g/dL [facility] Immature granulocytes (Bld) [#/Vol] 0.09 10*3/uL [facility] Immature granulocytes/100 WBC (Bld) 0.9 % 0.0 - 0.9 % [facility] Comment on above: Immature Granulocyte Count (IG) includes promyelocytes, myelocytes and metamyelocytes but does not include bands. Percent differential counts (%) should be interpreted in the context of the absolute cell counts (cells/UL). Interpretation and review of laboratory results Abnormal [facility] Lymphocytes (Bld) [#/Vol] 1.90 10*3/uL [facility] Lymphocytes/100 WBC (Bld) 19.8 % 13.0 - 44.0 % [facility] MCH (RBC) [Entitic mass] 29.3 pg 26.0 - 34.0 pg [facility] MCHC (RBC) [Mass/Vol] 33.9 g/dL 32.0 - 36.0 g/dL [facility] MCV (RBC) [Entitic vol] 86 fL 80 - 100 fL [facility] Monocytes (Bld) [#/Vol] 0.96 10*3/uL [facility] Monocytes/100 WBC (Bld) 10.0 % 2.0 - 10.0 % [facility] Neutrophils (Bld) [#/Vol] 5.52 10*3/uL [facility] Comment on above: Percent differential counts (%) should be interpreted in the context of the absolute cell counts (cells/uL). Neutrophils/100 WBC (Bld) 57.5 % 40.0 - 80.0 % [facility] Nucleated RBC/100 WBC (Bld) [Ratio] 0.0 % [facility] Platelets (Bld) [#/Vol] 249 10*3/uL [facility] RBC (Bld) [#/Vol] 4.61 10*6/uL [facility] WBC (Bld) [#/Vol] 9.6 10*3/uL [facility] Basophils (Bld) [#/Vol] 0.07 x10*3/uL Normal 0.00-0.10 [facility] Comment on above: Performed By: #### 5 7021-8 #### THELMA DENNISON ([id number]) [facility] ([facility]) [address] [place] [address] 12205 Basophils/100 WBC (Bld) 0.8 % Normal 0.0-2.0 [facility] Comment on above: Performed By: #### 5 7021-8 #### THELMA DENNISON ([id number]) [facility] ([facility]) [address] [place] [address] 71334 Eosinophils (Bld) [#/Vol] 1.09 x10*3/uL High 0.00-0.40 [facility] Comment on above: Performed By: #### 5 7021-8 #### THELMA DENNISON ([id number]) [facility] ([facility]) [address] [place] [address] 69843 Eosinophils/100 WBC (Bld) 12.0 % Normal 0.0-6.0 [facility] Comment on above: Performed By: #### 5 7021-8 #### THELMA DENNISON ([id number]) [facility] ([facility]) [address] [place] [address] 44817 Erythrocyte distribution width (RBC) [Ratio] 14.1 % Normal 11.5-14.5 [facility] Comment on above: Performed By: #### 5 7021-8 #### THELMA DENNISON ([id number]) [facility] ([facility]) [address] [place] [address] 56900 Hematocrit (Bld) [Volume fraction] 41.4 % Normal 36.0-46.0 [facility] Comment on above: Performed By: #### 5 7021-8 #### THELMA DENNISON ([id number]) [facility] ([facility]) [address] [place] [address] 94941 Hemoglobin (Bld) [Mass/Vol] 14.1 g/dL Normal 12.0-16.0 [facility] Comment on above: Performed By: #### 5 7021-8 #### THELMA DENNISON ([id number]) [facility] ([facility]) [address] [place] [address] 35191 Immature granulocytes (Bld) [#/Vol] 0.12 x10*3/uL Normal 0.00-0.50 [facility] Comment on above: Performed By: #### 5 7021-8 #### THELMA DENNISON ([id number]) [facility] ([facility]) [address] [place] [address] 27132 Immature granulocytes/100 WBC (Bld) 1.3 % High 0.0-0.9 [facility] Comment on above: Result Comment: Linda ture Granulocyte Count (IG) includes promyelocytes, myelocytes and metamyelocytes but does not include bands. Percent differential counts (%) should be interpreted in the context of the absolute cell counts (cells/UL). Performed By: #### 5 7021-8 #### THELMA DENNISON ([id number]) [facility] ([facility]) [address] [place] [address] 26701 Lymphocytes (Bld) [#/Vol] 1.88 x10*3/uL Normal 0.80-3.00 [facility] Comment on above: Performed By: #### 5 7021-8 #### THELMA DENNISON ([id number]) [facility] ([facility]) [address] [place] [address] 36292 Lymphocytes/100 WBC (Bld) 20.7 % Normal 13.0-44.0 [facility] Comment on above: Performed By: #### 5 7021-8 #### THELMA DENNISON ([id number]) [facility] ([facility]) [address] [place] [address] 31266 MCH (RBC) [Entitic mass] 29.4 pg Normal 26.0-34.0 [facility] Comment on above: Performed By: #### 5 7021-8 #### THELMA DENNISON ([id number]) [facility] ([facility]) [address] [place] [address] 62357 MCHC (RBC) [Mass/Vol] 34.1 g/dL Normal 32.0-36.0 [facility] Comment on above: Performed By: #### 5 7021-8 #### THELMA DENNISON ([id number]) [facility] ([facility]) [address] [place] [address] 84755 MCV (RBC) [Entitic vol] 86 fL Normal 80-100 [facility] Comment on above: Performed By: #### 5 7021-8 #### THELMA DENNISON ([id number]) [facility] ([facility]) [address] [place] [address] 75385 Monocytes (Bld) [#/Vol] 0.87 x10*3/uL High 0.05-0.80 [facility] Comment on above: Performed By: #### 5 7021-8 #### THELMA DENNISON ([id number]) [facility] ([facility]) [address] [place] [address] 65644 Monocytes/100 WBC (Bld) 9.6 % Normal 2.0-10.0 [facility] Comment on above: Performed By: #### 5 7021-8 #### THELMA DENNISON ([id number]) [facility]) [address] [place] [address] 35322 Neutrophils (Bld) [#/Vol] 5.05 x10*3/uL Normal 1.60-5.50 [facility] Comment on above: Result Comment: Perc ent differential counts (%) should be interpreted in the context of the absolute cell counts (cells/uL). Performed By: #### 5 7021-8 #### THELMA DENNISON ([id number]) [facility]) [address] [place] [address] 74024 Neutrophils/100 WBC (Bld) 55.6 % Normal 40.0-80.0 [facility] Comment on above: Performed By: #### 5 7021-8 #### THELMA DENNISON ([id number]) [facility]) [address] [place] [address] 45360 Nucleated RBC/100 WBC (Bld) [Ratio] 0.0 /100 WBCs Normal 0.0-0.0 [facility] Comment on above: Performed By: #### 5 7021-8 #### THELMA DENNISON ([id number]) [facility]) [address] [place] [address] 46706 Platelets (Bld) [#/Vol] 240 x10*3/uL Normal 150-450 [facility] Comment on above: Performed By: #### 5 7021-8 #### THELMA DENNISON ([id number]) [facility]) [address] [place] [address] 01676 RBC (Bld) [#/Vol] 4.80 x10*6/uL Normal 4.00-5.20 [facility] Comment on above: Performed By: #### 5 7021-8 #### THELMA DENNISON ([id number]) [facility] ([facility] [address] [place] [address] 54292 WBC (Bld) [#/Vol] 9.1 x10*3/uL Normal 4.4-11.3 [facility] Comment on above: Performed By: #### 5 7021-8 #### THELMA DENNISON ([id number]) [facility] [address] [place] [address] 18342 Basophils (Bld) [#/Vol] 0.07 10*3/uL [facility] Basophils/100 WBC (Bld) 0.8 % 0.0 - 2.0 % [facility] Eosinophils (Bld) [#/Vol] 1.09 10*3/uL High [facility] Eosinophils/100 WBC (Bld) 12.0 % 0.0 - 6.0 % [facility] Erythrocyte distribution width (RBC) [Ratio] 14.1 % 11.5 - 14.5 % [facility] Hematocrit (Bld) [Volume fraction] 41.4 % 36.0 - 46.0 % [facility] Hemoglobin (Bld) [Mass/Vol] 14.1 g/dL 12.0 - 16.0 g/dL [facility] Immature granulocytes (Bld) [#/Vol] 0.12 10*3/uL [facility] Immature granulocytes/100 WBC (Bld) 1.3 % High 0.0 - 0.9 % [facility] Comment on above: Immature Granulocyte Count (IG) includes promyelocytes, myelocytes and metamyelocytes but does not include bands. Percent differential counts (%) should be interpreted in the context of the absolute cell counts (cells/UL). Interpretation and review of laboratory results Abnormal [facility] Lymphocytes (Bld) [#/Vol] 1.88 10*3/uL [facility] Lymphocytes/100 WBC (Bld) 20.7 % 13.0 - 44.0 % [facility] MCH (RBC) [Entitic mass] 29.4 pg 26.0 - 34.0 pg [facility] MCHC (RBC) [Mass/Vol] 34.1 g/dL 32.0 - 36.0 g/dL [facility] MCV (RBC) [Entitic vol] 86 fL 80 - 100 fL [facility] Monocytes (Bld) [#/Vol] 0.87 10*3/uL High [facility] Monocytes/100 WBC (Bld) 9.6 % 2.0 - 10.0 % [facility] Neutrophils (Bld) [#/Vol] 5.05 10*3/uL [facility] Comment on above: Percent differential counts (%) should be interpreted in the context of the absolute cell counts (cells/uL). Neutrophils/100 WBC (Bld) 55.6 % 40.0 - 80.0 % [facility] Nucleated RBC/100 WBC (Bld) [Ratio] 0.0 % [facility] Platelets (Bld) [#/Vol] 240 10*3/uL [facility] RBC (Bld) [#/Vol] 4.80 10*6/uL [facility] WBC (Bld) [#/Vol] 9.1 10*3/uL [facility] Calcitriolon 05-24-2023 1,25-dihydroxyvitamin D3 [Mass/Vol] 179.0 pg/mL High 19.9-79.3 [facility] Comment on above: Result Comment: INTE RPRETIVE INFORMATION: Vitamin D, 1,25-Dihydroxy This test is primarily indicated during patient evaluation for hypercalcemia and renal failure. A normal result does not rule out Vitamin D deficiency. The recommended test for diagnosing Vitamin D deficiency is Vitamin D 25-hydroxy. Performed By: [facility] [address] [place] [address] Zone Manager: Jefferson Kerr MD, PhD CLIA Number: [id number] Performed By: #### 3 4529-8 #### THELMA DENNISON ([id number]) [facility] ([facility]) [address] [place] [address] 22925 Calcium, ionizedon Calcium.ionized (Bld) [Moles/Vol] 1.53 mmol/L High 1.1 - 1.33 mmol/L [facility] Comment on above: The performance domi acteristics of ionized calcium tested in heparinized plasma or serum have been validated by the individual laboratory site where testing is performed. Testing on heparinized plasma or serum is not approved by the FDA; however, such approval is not necessary. Calcium.ionizedon 05-24-2023 Calcium.ionized (Bld) [Moles/Vol] 1.53 mmol/L High 1.1-1.33 [facility] Comment on above: Result Comment: The performance characteristics of ionized calcium tested in heparinized plasma or serum have been validated by the individual laboratory site where testing is performed. Testing on heparinized plasma or serum is not approved by the FDA; however, such approval is not necessary. Performed By: #### 1 994-3 #### THELMA DENNISON ([id number]) [facility]) [address] [place] [address] 83075 Calcium.ionized (Bld) [Moles /Vol]on 05-24-2023 Interpretation and review of laboratory results Abnormal [facility] Coagulation tissue factor in ducedon 05-24-2023 PT Coag (PPP) [Time] 25.3 s High 9.8-12.8 [facility] Comment on above: Performed By: #### 5 902-2 #### THELMA DENNISON ([id number]) [facility]) [address] [place] [address] 97049 Comprehensive metabolic 2000 panelon 05-24-2023 Albumin BCP dye [Mass/Vol] 3.1 g/dL Low 3.4-5.0 [facility] Comment on above: Performed By: #### 2 4323-8 #### THELMA DENNISON ([id number]) [facility]) [address] [place] [address] 22942 ALP [Catalytic activity/Vol] 47 U/L Normal 33-136 [facility] Comment on above: Performed By: #### 2 4323-8 #### THELMA DENNISON ([id number]) [facility]) [address] [place] [address] 45255 ALT With P-5'-P [Catalytic activity/Vol] 39 U/L Normal 7-45 [facility] Comment on above: Result Comment: Liz ents treated with Sulfasalazine may generate falsely decreased results for ALT. Performed By: #### 2 4323-8 #### THELMA DENNISON ([id number]) [facility]) [address] [place] [address] 45160 Anion gap [Moles/Vol] 11 mmol/L Normal 10-20 [facility] Comment on above: Performed By: #### 2 4323-8 #### THELMA DENNISON ([id number]) [facility]) [address] [place] [address] 39212 AST With P-5'-P [Catalytic activity/Vol] 45 U/L High 9-39 [facility] Comment on above: Performed By: #### 2 4323-8 #### THELMA DENNISON ([id number]) [facility]) [address] [place] [address] Bilirubin [Mass/Vol] 0.5 mg/dL Normal 0.0-1.2 [facility] Comment on above: Performed By: #### 2 4323-8 #### THELMA DENNISON ([id number]) [facility]) [address] [place] [address] Calcium [Mass/Vol] 11.1 mg/dL High 8.6-10.3 [facility] Comment on above: Performed By: #### 2 4323-8 #### THELMA DENNISON ([id number]) [facility]) [address] [place] [address] 51402 Chloride [Moles/Vol] 108 mmol/L High 98-107 [facility] Comment on above: Performed By: #### 2 4323-8 #### THELMA DENNISON ([id number]) [facility]) [address] [place] [address] CO2 [Moles/Vol] 23 mmol/L Normal 21-32 [facility] Comment on above: Performed By: #### 2 4323-8 #### THELMA DENNISON ([id number]) [facility]) [address] [place] [address] Creatinine [Mass/Vol] 1.87 mg/dL High 0.50-1.05 [facility] Comment on above: Performed By: #### 2 4323-8 #### DELORESIBLIBRADO MONGE RIO ORTEGA ([id number]) [facility]) [address] [place] [address] 49742 Glomerular filtration rate/1.73 sq M.predicted 27 mL/min/1.73m*2 Low >60 [facility] Comment on above: Result Comment: Calc ulations of estimated GFR are performed using the 2020 CKD-EPI Study Refit equation without the race variable for the IDMS-Traceable creatinine methods. https://jasn.asnjournals.org/content//ASN.88670 04822 Performed By: #### 2 4323-8 #### THELMA DENNISON ([id number]) [facility]) [address] [place] [address] 20450 Glucose [Mass/Vol] 77 mg/dL Normal 74-99 [facility] Comment on above: Performed By: #### 2 4323-8 #### THELMA DENNISON ([id number]) [facility]) [address] [place] [address] 02811 Potassium [Moles/Vol] 3.8 mmol/L Normal 3.5-5.3 [facility] Comment on above: Performed By: #### 2 4323-8 #### THELMA DENNISON ([id number]) [facility]) [address] [place] [address] 50828 Protein [Mass/Vol] 5.1 g/dL Low 6.4-8.2 [facility] Comment on above: Performed By: #### 2 4323-8 #### THELMA DENNISON ([id number]) [facility]) [address] [place] [address] 59834 Sodium [Moles/Vol] 138 mmol/L Normal 136-145 [facility] Comment on above: Performed By: #### 2 4323-8 #### THELMA DENNISON ([id number]) [facility]) [address] [place] [address] 77835 Urea nitrogen [Mass/Vol] 38 mg/dL High 6-23 [facility] Comment on above: Performed By: #### 2 4323-8 #### THELMA DENNISON ([id number]) [facility]) [address] [place] [address] 60566 Albumin BCP dye [Mass/Vol] 3.1 g/dL Low 3.4 - 5.0 g/dL [facility] ALP [Catalytic activity/Vol] 47 U/L 33 - 136 U/L [facility] ALT With P-5'-P [Catalytic activity/Vol] 39 U/L 7 - 45 U/L [facility] Comment on above: Patients treated wit h Sulfasalazine may generate falsely decreased results for ALT. Anion gap [Moles/Vol] 11 mmol/L 10 - 2 0 mmol/L [facility] AST With P-5'-P [Catalytic activity/Vol] 45 U/L High 9 - 39 U/L [facility] Bilirubin [Mass/Vol] 0.5 mg/dL 0.0 - 1 .2 mg/dL [facility] Calcium [Mass/Vol] 11.1 mg/dL High 8.6 - 10. 3 mg/dL [facility] Chloride [Moles/Vol] 108 mmol/L High 98 - 10 7 mmol/L [facility] CO2 [Moles/Vol] 23 mmol/L 21 - 32 mmol/L [facility] Creatinine [Mass/Vol] 1.87 mg/dL High 0.50 - 1.05 mg/dL [facility] GFR/1.73 sq M.predicted among non-blacks MDRD (S/P/Bld) [Vol rate/Area] 27 mL/min/{1.73_m2} Low - PINF [facility] Comment on above: Calculations of marisabel mated GFR are performed using the 2020 CKD-EPI Study Refit equation without the race variable for the IDMS-Traceable creatinine methods. https://jasn.asnjournals.org/content/early/ASN.71905 02741 Glucose [Mass/Vol] 77 mg/dL 74 - 99 mg/dL [facility] Interpretation and review of laboratory results Abnormal [facility] Potassium [Moles/Vol] 3.8 mmol/L 3.5 - 5.3 mmol/L [facility] Protein [Mass/Vol] 5.1 g/dL Low 6.4 - 8.2 g/dL [facility] Sodium [Moles/Vol] 138 mmol/L 136 - 145 mmol/L [facility] Urea nitrogen [Mass/Vol] 38 mg/dL High 6 - 23 mg/dL [facility] Albumin BCP dye [Mass/Vol] 3.3 g/dL Low 3.4-5.0 [facility] Comment on above: Performed By: #### 2 4323-8 #### THELMA DENNISON ([id number]) [facility]) [address] [place] [address] 17397 ALP [Catalytic activity/Vol] 52 U/L Normal 33-136 [facility] Comment on above: Performed By: #### 2 4323-8 #### DELORESIBLIBRADO DENNISON ([id number]) [facility]) [address] [place] [address] 40755 ALT With P-5'-P [Catalytic activity/Vol] 43 U/L Normal 7-45 [facility] Comment on above: Result Comment: Liz ents treated with Sulfasalazine may generate falsely decreased results for ALT. Performed By: #### 2 4323-8 #### THELMA DENNISON ([id number]) [facility]) [address] [place] [address] 01817 Anion gap [Moles/Vol] 10 mmol/L Normal 10-20 [facility] Comment on above: Performed By: #### 2 4323-8 #### THELMA DENNISON ([id number]) [facility]) [address] [place] [address] 67912 AST With P-5'-P [Catalytic activity/Vol] 48 U/L High 9-39 [facility] Comment on above: Performed By: #### 2 4323-8 #### DELORESIBLIBRADO DENNISON ([id number]) [facility]) [address] [place] [address] 27774 Bilirubin [Mass/Vol] 0.5 mg/dL Normal 0.0-1.2 [facility] Comment on above: Performed By: #### 2 4323-8 #### DELORESIBLIBRADO DENNISON ([id number]) [facility]) [address] [place] [address] [place] [address] Calcium [Mass/Vol] 11.5 mg/dL High 8.6-10.3 [facility] Comment on above: Performed By: #### 2 4323-8 #### THELMA DENNISON ([id number]) [facility]) [address] [place] [address] Chloride [Moles/Vol] 106 mmol/L Normal 98-107 [facility] Comment on above: Performed By: #### 2 4323-8 #### THELMA DENNISON ([id number]) [facility]) [address] [place] [address] 65032 CO2 [Moles/Vol] 25 mmol/L Normal 21-32 [facility] Comment on above: Performed By: #### 2 4323-8 #### THELMA DENNISON ([id number]) [facility]) [address] [place] [address] 62366 Creatinine [Mass/Vol] 1.95 mg/dL High 0.50-1.05 [facility] Comment on above: Performed By: #### 2 4323-8 #### THELMA DENNISON ([id number]) [facility]) [address] [place] [address] 05635 Glomerular filtration rate/1.73 sq M.predicted 26 mL/min/1.73m*2 Low >60 [facility] Comment on above: Result Comment: Calc ulations of estimated GFR are performed using the 2020 CKD-EPI Study Refit equation without the race variable for the IDMS-Traceable creatinine methods. https://jasn.asnjournals.org/content//ASN.38754 62821 Performed By: #### 2 4323-8 #### THELMA DENNISON ([id number]) [facility]) [address] [place] [address] Glucose [Mass/Vol] 83 mg/dL Normal 74-99 [facility] Comment on above: Performed By: #### 2 4323-8 #### THELMA DENNISON ([id number]) [facility]) [address] [place] [address] 77509 Potassium [Moles/Vol] 3.8 mmol/L Normal 3.5-5.3 [facility] Comment on above: Performed By: #### 2 4323-8 #### THELMA DENNISON ([id number]) [facility] [address] [place] [address] 87003 Protein [Mass/Vol] 5.4 g/dL Low 6.4-8.2 [facility] Comment on above: Performed By: #### 2 4323-8 #### THELMA DENNISON ([id number]) [facility] [address] [place] [address] 76333 Sodium [Moles/Vol] 137 mmol/L Normal 136-145 [facility] Comment on above: Performed By: #### 2 4323-8 #### THELMA DENNISON ([id number]) [facility] [address] [place] [address] 60166 Urea nitrogen [Mass/Vol] 37 mg/dL High 6-23 [facility] Comment on above: Performed By: #### 2 4323-8 #### THELMA DENNISON ([id number]) [facility] [address] [place] [address] 62598 Albumin BCP dye [Mass/Vol] 3.3 g/dL Low 3.4 - 5.0 g/dL [facility] ALP [Catalytic activity/Vol] 52 U/L 33 - 136 U/L [facility] ALT With P-5'-P [Catalytic activity/Vol] 43 U/L 7 - 45 U/L [facility] Comment on above: Patients treated wit h Sulfasalazine may generate falsely decreased results for ALT. Anion gap [Moles/Vol] 10 mmol/L 10 - 2 0 mmol/L [facility] AST With P-5'-P [Catalytic activity/Vol] 48 U/L High 9 - 39 U/L [facility] Bilirubin [Mass/Vol] 0.5 mg/dL 0.0 - 1 .2 mg/dL [facility] Calcium [Mass/Vol] 11.5 mg/dL High 8.6 - 10. 3 mg/dL [facility] Chloride [Moles/Vol] 106 mmol/L 98 - 10 7 mmol/L [facility] CO2 [Moles/Vol] 25 mmol/L 21 - 32 mmol/L [facility] Creatinine [Mass/Vol] 1.95 mg/dL High 0.50 - 1.05 mg/dL [facility] GFR/1.73 sq M.predicted among non-blacks MDRD (S/P/Bld) [Vol rate/Area] 26 mL/min/{1.73_m2} Low - PINF [facility] Comment on above: Calculations of marisabel mated GFR are performed using the 2020 CKD-EPI Study Refit equation without the race variable for the IDMS-Traceable creatinine methods. https://jasn.asnjournals.org/content/early//ASN.54140 08850 Glucose [Mass/Vol] 83 mg/dL 74 - 99 mg/dL [facility] Interpretation and review of laboratory results Abnormal [facility] Potassium [Moles/Vol] 3.8 mmol/L 3.5 - 5.3 mmol/L [facility] Protein [Mass/Vol] 5.4 g/dL Low 6.4 - 8.2 g/dL [facility] Sodium [Moles/Vol] 137 mmol/L 136 - 145 mmol/L [facility] Urea nitrogen [Mass/Vol] 37 mg/dL High 6 - 23 mg/dL [facility] Magnesiumon 05-24-2023 Magnesium [Mass/Vol] 1.95 mg/dL Normal 1.60-2.40 [facility] Comment on above: Performed By: #### 1 9123-9 #### THELMA DENNISON ([id number]) [facility] [address] [place] [address] 54722 Magnesium [Mass/Vol] 1.95 mg/dL 1.60 - 2.40 mg/dL [facility] Magnesium [Mass/Vol] 2.03 mg/dL Normal 1.60-2.40 [facility] Comment on above: Performed By: #### 1 9123-9 #### THELMA DENNISON ([id number]) [facility] [address] [place] [address] 98152 Magnesium [Mass/Vol] 2.03 mg/dL 1.60 - 2.40 mg/dL [facility] Magnesium [Mass/Vol]on 05-23 Interpretation and review of laboratory results Normal [facility] Interpretation and review of laboratory results Normal [facility] No Panel Informationon 05-23 [facility] PT Coag (PPP) [Time]on 05-23 INR Coag (PPP) [Relative time] 2.2 High 0.9-1.1 [facility] Comment on above: Performed By: #### 5 902-2 #### THELMA DENNISON ([id number]) [facility] [address] [place] [address] 75954 INR Coag (PPP) [Relative time] 2.2 {INR} High 0.9 - 1.1 [facility] Interpretation and review of laboratory results Abnormal [facility] PT and aPTT panel Coag (PPP) on 05-24-2023 aPTT Coag (PPP) [Time] 36 s Normal 27-38 [facility] Comment on above: Order Comment: The A PTT is no longer used for monitoring Unfractionated Heparin Therapy. For monitoring Heparin Therapy, use the Heparin Assay. Performed By: #### 3 4529-8 #### THELMA DENNISON ([id number]) [facility]) [address] [place] [address] 76821 INR Coag (PPP) [Relative time] 2.2 High 0.9-1.1 [facility] Comment on above: Order Comment: The A PTT is no longer used for monitoring Unfractionated Heparin Therapy. For monitoring Heparin Therapy, use the Heparin Assay. Performed By: #### 3 4529-8 #### THELMA DENNISON ([id number]) [facility] ([facility]) [address] [place] [address] PT Coag (PPP) [Time] 25.0 s High 9.8-12.8 [facility] Comment on above: Order Comment: The A PTT is no longer used for monitoring Unfractionated Heparin Therapy. For monitoring Heparin Therapy, use the Heparin Assay. Performed By: #### 3 4529-8 #### THELMA DENNISON ([id number]) [facility] ([facility]) [address] [place] [address] aPTT Coag (PPP) [Time] 36 s [facility] INR Coag (PPP) [Relative time] 2.2 {INR} High 0.9 - 1.1 [facility] Interpretation and review of laboratory results Abnormal [facility] PT Coag (PPP) [Time] 25.0 s High [facility] The APTT is no longe r used for monitoring Unfractionated Heparin Therapy. For monitoring Heparin Therapy, use the Heparin Assay. [facility] PTH, Intacton 05-24-2023 Parathyrin.intact [Mass/Vol] 11.2 pg/mL Low 18.5 - 88.0 pg/mL [facility] Parathyrin.intacton 05-24-19 Parathyrin.intact [Mass/Vol] 11.2 pg/mL Low 18.5-88.0 [facility] Comment on above: Performed By: #### 2 731-8 #### JENNIFER Mirza ([id number]) [facility] ([facility]) [id number] [place] [address] 85298 Parathyrin.intact [Mass/Vol] on 05-24-2023 Interpretation and review of laboratory results Abnormal [facility] Protime-INRon 05-24-2023 PT Coag (PPP) [Time] 25.3 s High [facility] SST TOPon 05-24-2023 Extra Tube Hold for add-ons. [facility] Comment on above: Auto resulted. [facility] Absolute lymphocyte countOrd ered By: Ankush Noguera on 05-23-2023 Lymphocytes Auto (Unsp spec) [#/Vol] 1.83 10*3/uL 0.83-4.51 [facility] Automated lymphocyte count a s percentage of total leukocytesOrdered By: Ankush Noguera on 05-23-2023 Lymphocytes/100 WBC Auto (Unsp spec) 19.2 % 19-41 [facility] Basic metabolic 2000 panelon 05-23-2023 Anion gap [Moles/Vol] 16 mmol/L 9 - 18 mmol/L [facility] Calcium [Mass/Vol] 12.6 mg/dL High 8.5 - 10. 2 mg/dL [facility] Chloride [Moles/Vol] 100 mmol/L 97 - 10 5 mmol/L [facility] CO2 [Moles/Vol] 18 mmol/L Low 22 - 30 mmol/L [facility] Creatinine [Mass/Vol] 1.98 mg/dL High 0.58 - 0.96 mg/dL [facility] Estimated Glomerular Filtration Rate 25 mL/min/1.73m Low >=60 mL/min/1.73m [facility] Glucose [Mass/Vol] 110 mg/dL High 74 - 99 mg/dL [facility] Potassium [Moles/Vol] 4.7 mmol/L 3.7 - 5.1 mmol/L [facility] Sodium [Moles/Vol] 134 mmol/L Low 136 - 144 mmol/L [facility] Urea nitrogen [Mass/Vol] 35 mg/dL High 7 - 21 mg/dL [facility] Basophil percentageOrdered B y: Ankush Chuckie on 05-23-2023 Basophil percentage 50-100 SEEN /hpf 0-5 [facility] Basophils/100 WBC (Bld) 0.8 % 0-1 [facility] Bilirubin [Mass/Vol] 0.40 mg/dL 0.20-1.00 [facility] Comment on above: For patients on eltr ombopag therapy, use of Dimension [place] TBIL is not recommended. Chloride [Moles/Vol] 105 mmol/L 98-107 [facility] Eosinophils/100 WBC (Bld) 9.7 % 0-5 [facility] Glucose [Mass/Vol] 144 mg/dL 74-106 [facility] Comment on above: Fasting Glucose resu lt greater than or equal to 126 mg/dL suggests DIABETES MELLITUS per A.D.A. criteria. Hemoglobin (Bld) [Mass/Vol] 14.5 g/dL 12.0-15.0 [facility] Monocytes/100 WBC (Bld) 9.7 % 0-10 [facility] Neutrophils (Bld) [#/Vol] 5.7 10*3/uL 2.0-7.7 [facility] Neutrophils/100 WBC (Bld) 59.7 % 47-70 [facility] Potassium [Moles/Vol] 4.0 mmol/L 3.5-5.1 [facility] Protein [Mass/Vol] 5.9 g/dL 6.4-8.2 [facility] Sodium [Moles/Vol] 136 mmol/L 136-145 [facility] WBC (Bld) [#/Vol] 9.5 10*3/uL 4.4-11.0 [facility] Bilirubin Test strip Ql (U)O rdered By: Ankush Noguera on 05-23-2023 Bilirubin Ql (U) Negative Negative [facility] Calcium.ionized [Moles/Vol]o n 05-23-2023 Calcium.ionized (Bld) [Mass/Vol] 1.69 mmol/L High 1.08 - 1.30 mmol/L [facility] Calcium.ionized adjusted to pH 7.4 (Bld) [Moles/Vol] 1.69 mmol/L High 1.08 - 1.30 mmol/L [facility] Determination of erythrocyte mean corpuscular volume (MCV)Ordered By: Ankush Noguera on 05-23-2023 MCV (RBC) [Entitic vol] 85.4 fL 81-99 [facility] Erythrocyte distribution wid th ratioOrdered By: Ankush Noguera on 05-23-2023 Erythrocyte distribution width (RBC) [Ratio] 14.2 % 11.6-14.6 [facility] Erythrocyte distribution wid th standard deviationOrdered By: Ankush Noguera on 05-23-2023 Erythrocyte distribution width (RBC) [Entitic vol] 44.1 fL 35.1-43.9 [facility] Hematocrit Auto (Bld) [Volum e fraction]Ordered By: Ankush Noguera on 05-23-2023 Hematocrit (Bld) [Volume fraction] 43.3 % 37-47 [facility] Immature granulocytes/100 WB C Auto (Bld)Ordered By: Ankush Noguera on 05-23-2023 Immature granulocytes/100 WBC (Bld) 0.900 % 0.0-0.9 [facility] Comment on above: IG% - Immature Granu locytes (promyelocytes, myelocytes and metamyelocytes) > 1% indicates that a LEFT SHIFT is Present. Ketones Test strip Ql (U)Ord ered By: Ankush Noguera on 05-23-2023 Ketones Ql (U) Negative Negative [facility] Laboratory - Chemistry and C hemistry - challengeOrdered By: Ankush Noguera on 05-23-2023 Albumin/Globulin [Mass ratio] 1.0 {ratio} 0.9-2.4 [facility] ALP [Catalytic activity/Vol] 76 U/L 45-117 [facility] ALT [Catalytic activity/Vol] 62 U/L 13-56 [facility] CO2 [Moles/Vol] 23.0 mmol/L 21.0-32.0 [facility] Globulin (S) [Mass/Vol] 3.0 g/dL 2.2-4.2 [facility] Urea nitrogen/Creatinine [Mass ratio] 18.9 mg/mg 10-20 [facility] Laboratory - CoagulationOrde red By: Ankush Noguera on 05-23-2023 INR Coag (Bld) [Relative time] 2.1 {INR} [facility] PT Coag (PPP) [Time] 23.0 s 11.7-14.9 [facility] Laboratory - Hematology and Cell countsOrdered By: Ankush Noguera on 05-23-2023 MCH (RBC) [Entitic mass] 28.6 pg 27.0-32.0 [facility] MCHC (RBC) [Mass/Vol] 33.5 g/dL 32-36 [facility] Nucleated RBC/100 WBC (Bld) [Ratio] 0 % 0-5 [facility] Platelet mean volume (Bld) [Entitic vol] 10.9 fL 6.2-12.0 [facility] Platelets (Bld) [#/Vol] 271 10*3/uL 150-450 [facility] MAGNESIUM BLDon 05-23-2023 Magnesium [Mass/Vol] 2.3 mg/dL 1.7 - 2 .3 mg/dL [facility] Mucus LM Ql (Urine sed)Order ed By: Ankush Noguera on 05-23-2023 Mucus Ql (Urine sed) 0 SEEN /hpf [facility] Nitrite Test strip Ql (U)Ord ered By: Ankush Noguera on 05-23-2023 Nitrite Ql (U) Negative Negative [facility] No Panel InformationOrdered By: Ankush Noguera on 05-23-2023 Urine RBC 10-25 SEEN /hpf 0-5 [facility] Ionized Calcium 6.22 mg/dL 4.36-5.20 [facility] Estimated Creatinine Clearance Calc 19.14 ml/min [facility] Estimated GFR (MDRD) Amer 30 mL/min >60 [facility] Comment on above: GFR Calc Estimated GFR (MDRD) Non-Af Amer 25 mL/min >60 [facility] Comment on above: Non- GFR Calc Troponin I High Sensitivity 32 pg/mL 3.0-54.0 [facility] Comment on above: Please Note: New Katerina t Units and Gender Specific Reference Ranges. For more information see Policy Stat Procedure [place] High Sensitivity Troponin (TNIH) and attachments. PHOSPHORUS INORGANICon 05-22 Phosphate [Mass/Vol] 4.1 mg/dL 2.7 - 4 .8 mg/dL [facility] Protein Test strip Ql (U)Ord ered By: Ankush Noguera on 05-23-2023 Protein Ql (U) 15 mg/dl Negative [facility] RBC Auto (Bld) [#/Vol]Ordere d By: Ankush Noguera on 05-23-2023 RBC (Bld) [#/Vol] 5.07 10*6/uL 4.2-5.4 [facility] Serum or plasma calcium scott urement (mass/volume)Ordered By: Ankush Noguera on 05-23-2023 Calcium [Mass/Vol] 11.9 mg/dL 8.5-10.1 [facility] Serum or plasma creatinine m easurement (mass/volume)Ordered By: Ankush Noguera on 05-23-2023 Creatinine [Mass/Vol] 2.06 mg/dL 0.55-1.02 [facility] Comment on above: The validity of the calculated GFR & GFRAA in patients over 70 years has not been determined. Clinical correlation is essential. Serum or plasma urea nitroge n measurement (mass/volume)Ordered By: Ankush Noguera on 05-23-2023 Urea nitrogen [Mass/Vol] 39 mg/dL 7-18 [facility] Squamous epithelial cells de tection in urine sediment by light microscopyOrdered By: Ankush Noguera on 05-23-2023 Epithelial cells.squamous LM Ql (Urine sed) 5-10 SEEN /hpf 5-10 [facility] Thin prep Papanicolaou smear with manual screeningOrdered By: Ankush Noguera on 05-23-2023 Thin prep Papanicolaou smear with manual screening 2.9 g/dL 3.2-5.0 [facility] Thin prep Papanicolaou smear with manual screening 64 U/L 15-37 [facility] Thin prep Papanicolaou smear with manual screening 8 5-15 [facility] UA DIP, URINE (POC)on 2023 BILIRUBIN UA (POCT) Negative Negative [facility] CLARITY UA (POCT) Clear [facility] COLOR UA (POCT) Yellow [facility] GLUCOSE UA (POCT) Negative Negative mg/dL [facility] Hemoglobin Ql (U) Small Abnormal Negative [facility] KETONE UA (POCT) Negative Negative mg/dL [facility] LEUKOCYTES UA (POCT) Small Abnormal Negative [facility] NITRITE UA (POCT) Negative Negative [facility] PH UA (POCT) 5.5 4.5 - 8.0 [facility] Protein Ql (U) Negative Negative mg/dL [facility] SPECIFIC GRAVITY UA (POCT) <=1.005 Abnormal 1.005 - 1.030 [facility] UROBILINOGEN UA (POCT) 0.2 E.U./dL Camelia l E.U./dL [facility] Urine blood detectionOrdered By: Ankush Noguera on 05-23-2023 RBC Ql (U) 25 /ul Negative [facility] Urine clarityOrdered By: Edoaurd Noguera on 05-23-2023 Clarity (U) Clear Clear [facility] Urine color determinationOrd ered By: Ankush Noguera on 05-23-2023 Color (U) Yellow Yellow [facility] Urine glucose detectionOrder ed By: Ankush Noguera on 05-23-2023 Glucose Ql (U) Normal mg/dl Normal [facility] Urine leukocyte esterase det ection by dipstickOrdered By: Ankush Noguera on 05-23-2023 Leukocyte esterase Test strip Ql (U) 500 /ul Negative [facility] Urine pHOrdered By: Ankush ford on 05-23-2023 pH (U) 6.5 [pH] 5.0 - 8.0 [facility] Urine sediment bacteria coun t by microscopy (number/high power field)Ordered By: Ankush Noguera on 05-23-2023 Bacteria LM.HPF (Urine sed) [#/Area] 0 /[HPF] None Seen [facility] Urine specific gravity measu rementOrdered By: Ankush Noguera on 05-23-2023 Specific gravity (U) [Rel density] 1.010 1.002-1.030 [facility] Urine urobilinogen measureme ntOrdered By: Ankush Noguera on 05-23-2023 Urobilinogen Ql (U) Normal mg/dl Normal [facility] Absolute lymphocyte countOrd ered By: Juan Alberto Mcclendon on 05-15-2023 Lymphocytes Auto (Unsp spec) [#/Vol] 1.74 10*3/uL 0.83-4.51 [facility] Automated lymphocyte count a s percentage of total leukocytesOrdered By: Juan Alberto Mcclendon on 05-15-2023 Lymphocytes/100 WBC Auto (Unsp spec) 15.8 % 19-41 [facility] Basophil percentageOrdered B y: Juan Alberto Mcclendon on 05-15-2023 Basophils/100 WBC (Bld) 0.6 % 0-1 [facility] Chloride [Moles/Vol] 103 mmol/L 98-107 [facility] Eosinophils/100 WBC (Bld) 6.4 % 0-5 [facility] Glucose [Mass/Vol] 103 mg/dL 74-106 [facility] Comment on above: Fasting Glucose resu lt from 100 to 125 mg/dL suggests IMPAIRED HOMEOSTASIS per A.D.A. criteria. Hemoglobin (Bld) [Mass/Vol] 14.4 g/dL 12.0-15.0 [facility] Monocytes/100 WBC (Bld) 10.7 % 0-10 [facility] Neutrophils (Bld) [#/Vol] 7.2 10*3/uL 2.0-7.7 [facility] Neutrophils/100 WBC (Bld) 65.8 % 47-70 [facility] Potassium [Moles/Vol] 3.6 mmol/L 3.5-5.1 [facility] Sodium [Moles/Vol] 134 mmol/L 136-145 [facility] WBC (Bld) [#/Vol] 11.0 10*3/uL 4.4-11.0 [facility] Determination of erythrocyte mean corpuscular volume (MCV)Ordered By: Juan Alberto Mcclendon on 05-15-2023 MCV (RBC) [Entitic vol] 88.0 fL 81-99 [facility] Erythrocyte distribution wid th ratioOrdered By: Juan Alberto Mcclendon on 05-15-2023 Erythrocyte distribution width (RBC) [Ratio] 14.3 % 11.6-14.6 [facility] Erythrocyte distribution wid th standard deviationOrdered By: Juan Alberto Mcclendon on 05-15-2023 Erythrocyte distribution width (RBC) [Entitic vol] 45.5 fL 35.1-43.9 [facility] Hematocrit Auto (Bld) [Volum e fraction]Ordered By: Juan Alberto Mcclendon on 05-15-2023 Hematocrit (Bld) [Volume fraction] 44.8 % 37-47 [facility] Immature granulocytes/100 WB C Auto (Bld)Ordered By: Juan Alberto Mcclendon on 05-15-2023 Immature granulocytes/100 WBC (Bld) 0.700 % 0.0-0.9 [facility] Comment on above: IG% - Immature Granu locytes (promyelocytes, myelocytes and metamyelocytes) > 1% indicates that a LEFT SHIFT is Present. Laboratory - Chemistry and C hemistry - challengeOrdered By: Juan Alberto Mcclendon on 05-15-2023 CO2 [Moles/Vol] 22.0 mmol/L 21.0-32.0 [facility] Urea nitrogen/Creatinine [Mass ratio] 17.6 mg/mg 10-20 [facility] Laboratory - Hematology and Cell countsOrdered By: Juan Alberto Mcclendon on 05-15-2023 MCH (RBC) [Entitic mass] 28.3 pg 27.0-32.0 [facility] MCHC (RBC) [Mass/Vol] 32.1 g/dL 32-36 [facility] Nucleated RBC/100 WBC (Bld) [Ratio] 0 % 0-5 [facility] Platelet mean volume (Bld) [Entitic vol] 11.8 fL 6.2-12.0 [facility] Platelets (Bld) [#/Vol] 216 10*3/uL 150-450 [facility] No Panel InformationOrdered By: Juan Alberto Mcclendon on 05-15-2023 Estimated Creatinine Clearance Calc 19.41 ml/min [facility] Estimated GFR (MDRD) Amer 30 mL/min >60 [facility] Comment on above: GFR Calc Estimated GFR (MDRD) Non-Af Amer 25 mL/min >60 [facility] Comment on above: Non- GFR Calc RBC Auto (Bld) [#/Vol]Ordere d By: Juan Alberto Mcclendon on 05-15-2023 RBC (Bld) [#/Vol] 5.09 10*6/uL 4.2-5.4 [facility] Serum or plasma calcium scott urement (mass/volume)Ordered By: Juan Alberto Mcclendon on 05-15-2023 Calcium [Mass/Vol] 11.1 mg/dL 8.5-10.1 [facility] Serum or plasma creatinine m easurement (mass/volume)Ordered By: Juan Alberto Mcclendon on 05-15-2023 Creatinine [Mass/Vol] 2.04 mg/dL 0.55-1.02 [facility] Comment on above: The validity of the calculated GFR & GFRAA in patients over 70 years has not been determined. Clinical correlation is essential. Serum or plasma urea nitroge n measurement (mass/volume)Ordered By: Juan Alberto Mcclendon on 05-15-2023 Urea nitrogen [Mass/Vol] 36 mg/dL 7-18 [facility] Thin prep Papanicolaou smear with manual screeningOrdered By: Juan Alberto Mcclendon on 05-15-2023 Thin prep Papanicolaou smear with manual screening 9 5-15 [facility] Capillary blood internationa l normalized ratio (INR)Ordered By: Basim Velasquez on 2023 INR Coag (BldC) [Relative time] 3.0 [facility] Comment on above: Critical Value > 4.0 Whole blood prothrombin time Ordered By: Basim Velasquez on 2023 PT Coag (Bld) [Time] 32.0 s 11.7-14.9 [facility] No Panel InformationOrdered By: Jennifer Tarango on 04-04-2023 Vitamin D 25-Hydroxy 66.6 ng/mL [facility] Comment on above: Vitamin D 25(OH) Sta tus Range Deficiency <20 ng/mL (50nmol/L) Insufficiency 20 - 30 ng/mL (50 - 75 nmol/L) Sufficiency 30 - 100 ng/mL (75 - 250 nmol/L) Toxicity >100 ng/mL (>250 nmol/L) Serum or plasma calcitriol m easurement (mass/volume)Ordered By: Jennifer Tarango on 04-04-2023 1,25-dihydroxyvitamin D3 [Mass/Vol] 45.7 pg/mL 24.8-81.5 [facility] Comment on above: Performed at: [address] [id number] Director: Yvonne Cook MD, Phone: [phone] Basophil percentageOrdered B y: Basim Velasquez on 03-28-2023 Basophil percentage 2.8 mg/dL 2.5-4.9 [facility] Chloride [Moles/Vol] 106 mmol/L 98-107 [facility] Glucose [Mass/Vol] 94 mg/dL 74-106 [facility] Potassium [Moles/Vol] 4.1 mmol/L 3.5-5.1 [facility] Sodium [Moles/Vol] 137 mmol/L 136-145 [facility] Laboratory - Chemistry and C hemistry - challengeOrdered By: Basim Velasquez on 03-28-2023 CO2 [Moles/Vol] 28.0 mmol/L 21.0-32.0 [facility] Urea nitrogen/Creatinine [Mass ratio] 26.5 mg/mg 10-20 [facility] Laboratory - CoagulationOrde red By: Basim Velasquez on 03-28-2023 INR Coag (Bld) [Relative time] 1.7 {INR} [facility] PT Coag (PPP) [Time] 20.5 s 11.7-14.9 [facility] No Panel InformationOrdered By: Basim Velasquez on 03-28-2023 Estimated GFR (MDRD) Amer 32 mL/min >60 [facility] Comment on above: GFR Calc Estimated GFR (MDRD) Non-Af Amer 26 mL/min >60 [facility] Comment on above: Non- GFR Calc Serum or plasma calcium scott urement (mass/volume)Ordered By: Basim Velasquez on 03-28-2023 Calcium [Mass/Vol] 10.9 mg/dL 8.5-10.1 [facility] Serum or plasma creatinine m easurement (mass/volume)Ordered By: Basim Velasquez on 03-28-2023 Creatinine [Mass/Vol] 1.96 mg/dL 0.55-1.02 [facility] Comment on above: The validity of the calculated GFR & GFRAA in patients over 70 years has not been determined. Clinical correlation is essential. Serum or plasma urea nitroge n measurement (mass/volume)Ordered By: Basim Velasquez on 03-28-2023 Urea nitrogen [Mass/Vol] 52 mg/dL 7-18 [facility] Thin prep Papanicolaou smear with manual screeningOrdered By: Basim Velasquez on 03-28-2023 Thin prep Papanicolaou smear with manual screening 3.5 g/dL 3.2-5.0 [facility] Laboratory - CoagulationOrde red By: Basim Velasquez on 02-24-2023 PT Coag (PPP) [Time] 26.7 s 11.7-14.9 [facility] Whole blood international no rmalized ratio (INR)Ordered By: Basim Velasquez on 02-24-2023 INR Coag (Bld) [Relative time] 2.4 {INR} [facility] Laboratory - CoagulationOrde red By: Basim Velasquez on 02-08-2023 INR Coag (Bld) [Relative time] 3.1 {INR} [facility] Comment on above: Critical Value > 4.0 Whole blood prothrombin time Ordered By: Basim Velasquez on 02-08-2023 PT Coag (Bld) [Time] 33.3 s 11.7-14.9 [facility] Laboratory - CoagulationOrde red By: Basim Velasquez on 12-23-2022 INR Coag (Bld) [Relative time] 2.8 {INR} [facility] Comment on above: Critical Value > 4.0 Whole blood prothrombin time Ordered By: Basim Velasquez on 12-23-2022 PT Coag (Bld) [Time] 30.6 s 11.7-14.9 [facility] XR FOOT GENERAL 3V AP/LAT/OB L RIGHTon 12-19-2022 [facility] Basophil percentageOrdered B y: Basim Velasquez on 12-08-2022 Basophil percentage 2.5 mg/dL 2.5-4.9 [facility] Chloride [Moles/Vol] 107 mmol/L 98-107 [facility] Glucose [Mass/Vol] 185 mg/dL 74-106 [facility] Comment on above: Fasting Glucose resu lt greater than or equal to 126 mg/dL suggests DIABETES MELLITUS per A.D.A. criteria. Potassium [Moles/Vol] 4.3 mmol/L 3.5-5.1 [facility] Sodium [Moles/Vol] 140 mmol/L 136-145 [facility] INR in Blood by Coagulation assayOrdered By: Basim Velasquez on 12-08-2022 INR Coag (Bld) [Relative time] 3.1 {INR} [facility] Laboratory - Chemistry and C hemistry - challengeOrdered By: Basim Velasquez on 12-08-2022 CO2 [Moles/Vol] 28.0 mmol/L 21.0-32.0 [facility] Urea nitrogen/Creatinine [Mass ratio] 21.9 mg/mg 12-09 [facility] Laboratory - CoagulationOrde red By: Basim Velasquez on 12-08-2022 PT Coag (PPP) [Time] 32.0 s 11.7-14.9 [facility] No Panel InformationOrdered By: Basim Velasquez on 12-08-2022 Estimated GFR (MDRD) Amer 34 mL/min >60 [facility] Comment on above: GFR Calc Estimated GFR (MDRD) Non-Af Amer 28 mL/min >60 [facility] Comment on above: Non- GFR Calc Serum or plasma albumin scott urement (mass/volume)Ordered By: Basim Velasquez on 12-08-2022 Albumin [Mass/Vol] 3.5 g/dL 3.2-5.0 [facility] Serum or plasma calcium scott urement (mass/volume)Ordered By: Basim Velasquez on 12-08-2022 Calcium [Mass/Vol] 9.4 mg/dL 8.5-10.1 [facility] Serum or plasma creatinine m easurement (mass/volume)Ordered By: Basim Velasquez on 12-08-2022 Creatinine [Mass/Vol] 1.83 mg/dL 0.55-1.02 [facility] Comment on above: The validity of the calculated GFR & GFRAA in patients over 70 years has not been determined. Clinical correlation is essential. Serum or plasma urea nitroge n measurement (mass/volume)Ordered By: Basim Velasquez on 12-08-2022 Urea nitrogen [Mass/Vol] 40 mg/dL 09-06 [facility] XR FOOT GENERAL 3V AP/LAT/OB L RIGHTon 12-01-2022 [facility] Basophil percentageOrdered B y: Torsten Vann on 11-24-2022 Bilirubin [Mass/Vol] 0.60 mg/dL 0.20-1.00 [facility] Comment on above: For patients on eltr ombopag therapy, use of Dimension [place] TBIL is not recommended. Protein [Mass/Vol] 7.2 g/dL 6.4-8.2 [facility] Laboratory - Chemistry and C hemistry - challengeOrdered By: Torsten Vann on 11-24-2022 ALP [Catalytic activity/Vol] 103 U/L 45-117 [facility] ALT [Catalytic activity/Vol] 38 U/L 13-56 [facility] Globulin (S) [Mass/Vol] 3.4 g/dL 2.2-4.2 [facility] No Panel InformationOrdered By: Torsten Vann on 11-24-2022 Thyroid Stimulating Hormone (TSH) 0.42 uIU/mL 0.358-3.74 [facility] Vitamin D 25-Hydroxy 49.5 ng/mL [facility] Comment on above: Vitamin D 25(OH) Sta tus Range Deficiency <20 ng/mL (50nmol/L) Insufficiency 20 - 30 ng/mL (50 - 75 nmol/L) Sufficiency 30 - 100 ng/mL (75 - 250 nmol/L) Toxicity >100 ng/mL (>250 nmol/L) Serum or plasma albumin/glob ulin mass ratioOrdered By: Torsten Vann on 11-24-2022 Albumin/Globulin [Mass ratio] 1.1 {ratio} 0.9-2.4 [facility] Thin prep Papanicolaou smear with manual screeningOrdered By: Torsten Vann on 11-24-2022 Thin prep Papanicolaou smear with manual screening 28 U/L 15-37 [facility] Thin prep Papanicolaou smear with manual screening 5 5-15 [facility] XR FOOT GENERAL 3V AP/LAT/OB L RIGHTon 11-08-2022 [facility] XR Foot - right AP and Later al and obliqueon 11-08-2022 IMPRESSION: Acute nondisplaced fracture of the proximal fifth metatarsal shaft. 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 DIVISION OF RADIOLOGY * * *Final [...] of the vasculature. DIVISION OF RADIOLOGY Provider, [facility] Jenise [facility] - 11/08/2022 * * *Final Report* [...] fracture of the proximal fifth metatarsal shaft. Vocational Aide: [facility] Transcribe Date/Time: Nov 08 2022 11:28A Dictated by : ELIZABETH GEORGE MD This examination was interpreted and the report reviewed and electronically signed by: ELIZABETH GEORGE MD on Nov 08 2022 11:29AM EST [facility] Radiology Study observation (narrative) [facility] XR Foot - right AP and Later al and obliqueOrdered By: [facility] Provider on 11-08-2022 [facility] XR HIP BILATERAL 5V PEL/AP/L AT EACH HIPon 10-28-2022 IMPRESSION: Mild hip degenerative change bilaterally. Vocational Aide: [facility] Transcribe Date/Time: Oct 28 2022 9:25A Dictated by : JAYME RIDER MD This examination was interpreted and the report reviewed and electronically signed by: JAYME RIDER MD on Oct 28 2022 9:26AM [facility] DIVISION OF RADIOLOGY * * *Final [...] erosions. DIVISION OF RADIOLOGY Provider, Camilla segura [facility] - 10/28/2022 * * *Final Report* * [...] IMPRESSION IMPRESSION: Mild hip degenerative change bilaterally. Vocational Aide: [employer] Transcribe Date/Time: Oct 28 2022 9:25A Dictated by : JAYME RIDER MD This examination was interpreted and the report reviewed and electronically signed by: JAYME RIDER MD on Oct 28 2022 9:26AM [facility] XR HIP BILATERAL 5V PEL/AP/L AT EACH HIPOrdered By: [facility] Provider on 10-28-2022 [facility] Laboratory - CoagulationOrde red By: Basim Velasquze on 10-26-2022 INR Coag (Bld) [Relative time] 2.4 {INR} [facility] Comment on above: Critical Value > 4.0 Whole blood prothrombin time Ordered By: Basim Velasquez on 10-26-2022 PT Coag (Bld) [Time] 25.8 s 11.7-14.9 [facility] XR HIP BILATERAL 5V PEL/AP/L AT EACH HIPon 10-26-2022 Radiology Study observation (narrative) [facility] Laboratory - CoagulationOrde red By: Basim Velasquez on 10-11-2022 INR Coag (Bld) [Relative time] 3.2 {INR} [facility] Comment on above: Critical Value > 4.0 Whole blood prothrombin time Ordered By: Basim Velasquez on 10-11-2022 PT Coag (Bld) [Time] 34.6 s 11.7-14.9 [facility] Laboratory - CoagulationOrde red By: Basim Velasquez on 09-12-2022 INR Coag (Bld) [Relative time] 2.4 {INR} [facility] Comment on above: Critical Value > 4.0 Whole blood prothrombin time Ordered By: Basim Velasquez on 09-12-2022 PT Coag (Bld) [Time] 25.7 s 11.7-14.9 [facility] INR in Blood by Coagulation assayOrdered By: Basim Velasquez on 08-11-2022 INR Coag (Bld) [Relative time] 2.6 {INR} [facility] Laboratory - CoagulationOrde red By: Basim Velasquez on 08-11-2022 PT Coag (PPP) [Time] 28.3 s 11.7-14.9 [facility] Basophil percentageOrdered B y: Jennifer Tarango on 07-26-2022 Basophil percentage 2.6 mg/dL 2.5-4.9 [facility] Chloride [Moles/Vol] 107 mmol/L 98-107 [facility] Glucose [Mass/Vol] 80 mg/dL 74-106 [facility] Potassium [Moles/Vol] 3.9 mmol/L 3.5-5.1 [facility] Sodium [Moles/Vol] 139 mmol/L 136-145 [facility] Laboratory - Chemistry and C hemistry - challengeOrdered By: Jennifer Tarango on 07-26-2022 CO2 [Moles/Vol] 23.0 mmol/L 21.0-32.0 [facility] Urea nitrogen/Creatinine [Mass ratio] 21.3 mg/mg 10-20 [facility] No Panel InformationOrdered By: Jennifer Tarango on 07-26-2022 Estimated GFR (MDRD) Amer 34 mL/min >60 [facility] Comment on above: GFR Calc Estimated GFR (MDRD) Non-Af Amer 28 mL/min >60 [facility] Comment on above: Non- GFR Calc Serum or plasma albumin scott urement (mass/volume)Ordered By: Jennifer Tarango on 07-26-2022 Albumin [Mass/Vol] 3.8 g/dL 3.2-5.0 [facility] Serum or plasma calcium scott urement (mass/volume)Ordered By: Jennifer Tarango on 07-26-2022 Calcium [Mass/Vol] 9.3 mg/dL 8.5-10.1 [facility] Serum or plasma creatinine m easurement (mass/volume)Ordered By: Jennifer Tarango on 07-26-2022 Creatinine [Mass/Vol] 1.83 mg/dL 0.55-1.02 [facility] Comment on above: The validity of the calculated GFR & GFRAA in patients over 70 years has not been determined. Clinical correlation is essential. Serum or plasma urea nitroge n measurement (mass/volume)Ordered By: Jennifer Tarango on 07-26-2022 Urea nitrogen [Mass/Vol] 39 mg/dL 09-06 [facility] Laboratory - CoagulationOrde red By: Basim Velasquez on 07-08-2022 INR Coag (Bld) [Relative time] 2.1 {INR} [facility] Comment on above: Critical Value > 4.0 Whole blood prothrombin time Ordered By: Basim Velasquez on 07-08-2022 PT Coag (Bld) [Time] 23.5 s 11.7-14.9 [facility] Basophil percentageOrdered B y: Dr. Tarango on 06-07-2022 Basophil percentage 1.5 mg/dL 2.5-4.9 [facility] Chloride [Moles/Vol] 109 mmol/L 98-107 [facility] Glucose [Mass/Vol] 82 mg/dL 74-106 [facility] Potassium [Moles/Vol] 4.1 mmol/L 3.5-5.1 [facility] Sodium [Moles/Vol] 136 mmol/L 136-145 [facility] Laboratory - Chemistry and C hemistry - challengeOrdered By: Dr. Tarango on 06-07-2022 CO2 [Moles/Vol] 18.0 mmol/L 21.0-32.0 [facility] Urea nitrogen/Creatinine [Mass ratio] 16.1 mg/mg 10- [facility] No Panel InformationOrdered By: Dr. Tarango on 06-07-2022 Estimated GFR (MDRD) Amer 40 mL/min >60 [facility] Comment on above: GFR Calc Estimated GFR (MDRD) Non-Af Amer 33 mL/min >60 [facility] Comment on above: Non- GFR Calc Serum or plasma albumin scott urement (mass/volume)Ordered By: Dr. Tarango on 06-07-2022 Albumin [Mass/Vol] 3.7 g/dL 3.2-5.0 [facility] Serum or plasma calcium scott urement (mass/volume)Ordered By: Dr. Tarango on 06-07-2022 Calcium [Mass/Vol] 8.7 mg/dL 8.5-10.1 [facility] Serum or plasma creatinine m easurement (mass/volume)Ordered By: Dr. Tarango on 06-07-2022 Creatinine [Mass/Vol] 1.61 mg/dL 0.55-1.02 [facility] Comment on above: The validity of the calculated GFR & GFRAA in patients over 70 years has not been determined. Clinical correlation is essential. Serum or plasma urea nitroge n measurement (mass/volume)Ordered By: Dr. Tarango on 06-07-2022 Urea nitrogen [Mass/Vol] 26 mg/dL - [facility] Basophil percentageOrdered B y: Dr. Tarango on 05-31-2022 Basophil percentage 2.9 mg/dL 2.5-4.9 [facility] Chloride [Moles/Vol] 109 mmol/L 98-107 [facility] Glucose [Mass/Vol] 98 mg/dL 74-106 [facility] Potassium [Moles/Vol] 3.9 mmol/L 3.5-5.1 [facility] Comment on above: Slight Hemolysis, Re sult may be falsely increased. Sodium [Moles/Vol] 139 mmol/L 136-145 [facility] Laboratory - Chemistry and C hemistry - challengeOrdered By: Dr. Tarango on 05-31-2022 CO2 [Moles/Vol] 24.0 mmol/L 21.0-32.0 [facility] Urea nitrogen/Creatinine [Mass ratio] 14.5 mg/mg 10-20 [facility] No Panel InformationOrdered By: Dr. Tarango on 05-31-2022 Estimated GFR (MDRD) Amer 28 mL/min >60 [facility] Comment on above: GFR Calc Estimated GFR (MDRD) Non-Af Amer 23 mL/min >60 [facility] Comment on above: Non- GFR Calc Serum or plasma albumin scott urement (mass/volume)Ordered By: Dr. Tarango on 05-31-2022 Albumin [Mass/Vol] 3.5 g/dL 3.2-5.0 [facility] Serum or plasma calcium scott urement (mass/volume)Ordered By: Dr. Tarango on 05-31-2022 Calcium [Mass/Vol] 9.2 mg/dL 8.5-10.1 [facility] Serum or plasma creatinine m easurement (mass/volume)Ordered By: Dr. Tarango on 05-31-2022 Creatinine [Mass/Vol] 2.20 mg/dL 0.55-1.02 [facility] Comment on above: The validity of the calculated GFR & GFRAA in patients over 70 years has not been determined. Clinical correlation is essential. Serum or plasma urea nitroge n measurement (mass/volume)Ordered By: Dr. Tarango on 05-31-2022 Urea nitrogen [Mass/Vol] 32 mg/dL 7-18 [facility] Laboratory - CoagulationOrde red By: Dr. Marte on 05-09-2022 INR Coag (Bld) [Relative time] 2.4 {INR} [facility] Comment on above: Critical Value > 4.0 Whole blood prothrombin time Ordered By: Dr. Marte on 05-09-2022 PT Coag (Bld) [Time] 25.9 s 11.7-14.9 [facility] Laboratory - CoagulationOrde red By: Dr. Marte on 03-25-2022 INR Coag (Bld) [Relative time] 2.4 {INR} [facility] Comment on above: Critical Value > 4.0 No Panel Informationon 03-25 INR International Normalized Ratio 2.4 [facility] Whole blood prothrombin time Ordered By: Dr. Marte on 03-25-2022 PT Coag (Bld) [Time] 28.3 s 11.7-14.9 [facility] Laboratory - CoagulationOrde red By: Dr. Marte on 03-10-2022 INR Coag (Bld) [Relative time] 3.3 {INR} [facility] Comment on above: Critical Value > 4.0 Whole blood prothrombin time Ordered By: Dr. Marte on 03-10-2022 PT Coag (Bld) [Time] 37.6 s 11.7-14.9 [facility] Laboratory - CoagulationOrde red By: Dr. Marte on 02-15-2022 INR Coag (Bld) [Relative time] 1.0 {INR} [facility] Comment on above: Critical Value > 4.0 Whole blood prothrombin time Ordered By: Dr. Marte on 02-15-2022 PT Coag (Bld) [Time] 13.0 s 11.7-14.9 [facility] Laboratory - Coagulationon 1 03-30-2021 INR Coag (Bld) [Relative time] 1.7 {INR} [facility] Work Phone: Comment on above: Critical Value > 4.0 Whole blood prothrombin time on 01-27-2022 PT Coag (Bld) [Time] 20.8 s 11.7-14.9 [facility] Work Phone: Basophil percentageOrdered B y: Basim Velasquez on 01-25-2022 Chloride [Moles/Vol] 105 mmol/L 98-107 [facility] Glucose [Mass/Vol] 104 mg/dL 74-106 [facility] Comment on above: Fasting Glucose resu lt from 100 to 125 mg/dL suggests IMPAIRED HOMEOSTASIS per A.D.A. criteria. Potassium [Moles/Vol] 4.1 mmol/L 3.5-5.1 [facility] Sodium [Moles/Vol] 138 mmol/L 136-145 [facility] INR in Blood by Coagulation assayOrdered By: Dr. Marte on 01-25-2022 INR Coag (Bld) [Relative time] 11.9 {INR} [facility] Comment on above: ACRITICAL VALUE VERI FIED. CALLED TO RONNIE HAWKINS ([facility])01/25/22 1337 Omar BabcockRESULTS READ BACK BY SAME. Laboratory - Chemistry and C hemistry - challengeOrdered By: Basim Velasquez on 01-25-2022 CO2 [Moles/Vol] 26.0 mmol/L 21.0-32.0 [facility] Urea nitrogen/Creatinine [Mass ratio] 15.2 mg/mg 10-20 [facility] Laboratory - CoagulationOrde red By: Dr. Marte on 01-25-2022 PT Coag (PPP) [Time] 92.3 s 11.7-14.9 [facility] No Panel InformationOrdered By: Basim Velasquez on 01-25-2022 Estimated GFR (MDRD) Amer 34 mL/min >60 [facility] Comment on above: GFR Calc Estimated GFR (MDRD) Non-Af Amer 28 mL/min >60 [facility] Comment on above: Non- GFR Calc No Panel InformationOrdered By: Dr. Vann on 01-25-2022 Vitamin D 25-Hydroxy 39.0 ng/mL [facility] Comment on above: Vitamin D 25(OH) Sta tus Range Deficiency <20 ng/mL (50nmol/L) Insufficiency 20 - 30 ng/mL (50 - 75 nmol/L) Sufficiency 30 - 100 ng/mL (75 - 250 nmol/L) Toxicity >100 ng/mL (>250 nmol/L) Serum or plasma calcium scott urement (mass/volume)Ordered By: Basim Velasquez on 01-25-2022 Calcium [Mass/Vol] 9.3 mg/dL 8.5-10.1 [facility] Serum or plasma creatinine m easurement (mass/volume)Ordered By: Basim Velasquez on 01-25-2022 Creatinine [Mass/Vol] 1.84 mg/dL 0.55-1.02 [facility] Comment on above: The validity of the calculated GFR & GFRAA in patients over 70 years has not been determined. Clinical correlation is essential. Serum or plasma urea nitroge n measurement (mass/volume)Ordered By: Basim Velasquez on 01-25-2022 Urea nitrogen [Mass/Vol] 28 mg/dL 7-18 [facility] Thin prep Papanicolaou smear with manual screeningOrdered By: Basim Velasquez on 01-25-2022 Thin prep Papanicolaou smear with manual screening 7 5-15 [facility] Laboratory - CoagulationOrde red By: Dr. Marte on 12-28-2021 INR Coag (Bld) [Relative time] 2.3 {INR} [facility] Comment on above: Critical Value > 4.0 Whole blood prothrombin time Ordered By: Dr. Marte on 12-28-2021 PT Coag (Bld) [Time] 26.4 s 11.7-14.9 [facility] TAE SCREENINGon 12-08-2021 [facility] Culture, urineOrdered By: Dr Alaina Tarango on 11-26-2021 Bacteria identified Cx Nom (U) Escherichia coli [facility] Basophil percentageOrdered B y: Dr. Tarango on 11-24-2021 Basophil percentage 2.3 mg/dL 2.5-4.9 [facility] Chloride [Moles/Vol] 111 mmol/L 98-107 [facility] Glucose [Mass/Vol] 80 mg/dL 74-106 [facility] Potassium [Moles/Vol] 4.5 mmol/L 3.5-5.1 [facility] Sodium [Moles/Vol] 141 mmol/L 136-145 [facility] Laboratory - Chemistry and C hemistry - challengeOrdered By: Dr. Tarango on 11-24-2021 CO2 [Moles/Vol] 22.0 mmol/L 21.0-32.0 [facility] Urea nitrogen/Creatinine [Mass ratio] 18.7 mg/mg 12-09 [facility] No Panel InformationOrdered By: Dr. Tarango on 11-24-2021 Estimated GFR (MDRD) Amer 42 mL/min >60 [facility] Comment on above: GFR Calc Estimated GFR (MDRD) Non-Af Amer 34 mL/min >60 [facility] Comment on above: Non- GFR Calc Serum or plasma albumin scott urement (mass/volume)Ordered By: Dr. Tarango on 11-24-2021 Albumin [Mass/Vol] 3.4 g/dL 3.2-5.0 [facility] Serum or plasma calcium scott urement (mass/volume)Ordered By: Dr. Tarango on 11-24-2021 Calcium [Mass/Vol] 9.3 mg/dL 8.5-10.1 [facility] Serum or plasma creatinine m easurement (mass/volume)Ordered By: Dr. Tarango on 11-24-2021 Creatinine [Mass/Vol] 1.55 mg/dL 0.55-1.02 [facility] Comment on above: The validity of the calculated GFR & GFRAA in patients over 70 years has not been determined. Clinical correlation is essential. Serum or plasma urea nitroge n measurement (mass/volume)Ordered By: Dr. Tarango on 11-24-2021 Urea nitrogen [Mass/Vol] 29 mg/dL 7-18 [facility] Absolute lymphocyte counton 11-18-2021 Lymphocytes Auto (Unsp spec) [#/Vol] 1.02 10*3/uL 0.83-4.51 [facility] Work Phone: Activated partial thrombopla stin time (aPTT) in platelet poor plasma by coagulation aon 11-18-2021 aPTT Coag (PPP) [Time] 80.0 s 24.1-36.2 [facility] Work Phone: Basophil percentageon 2021 Basophils/100 WBC (Bld) 0.2 % 0-1 [facility] Work Phone: Chloride [Moles/Vol] 113 mmol/L 98-107 [facility] Work Phone: Eosinophils/100 WBC (Bld) 0.0 % 0-5 [facility] Work Phone: Glucose [Mass/Vol] 157 mg/dL 74-106 [facility] Work Phone: Comment on above: Fasting Glucose resu lt greater than or equal to 126 mg/dL suggests DIABETES MELLITUS per A.D.A. criteria. Neutrophils (Bld) [#/Vol] 8.5 10*3/uL 2.0-7.7 [facility] Work Phone: Neutrophils/100 WBC (Bld) 82.3 % 47-70 [facility] Work Phone: Potassium [Moles/Vol] 4.0 mmol/L 3.5-5.1 [facility] Work Phone: Sodium [Moles/Vol] 142 mmol/L 136-145 [facility] Work Phone: WBC (Bld) [#/Vol] 10.3 10*3/uL 4.4-11.0 [facility] Work Phone: Blood erythrocytes count (nu mber/volume)on 11-18-2021 RBC (Bld) [#/Vol] 4.15 10*6/uL 4.2-5.4 [facility] Work Phone: Blood hemoglobin measurement (mass/volume)on 11-18-2021 Hemoglobin (Bld) [Mass/Vol] 12.4 g/dL 12.0-15.0 [facility] Work Phone: Blood lymphocytes/100 leukoc yteson 11-18-2021 Lymphocytes/100 WBC (Bld) 9.9 % 19-41 [facility] Work Phone: Blood monocytes/100 leukocyt eson 11-18-2021 Monocytes/100 WBC (Bld) 7.2 % 0-10 [facility] Work Phone: Blood platelet mean volumeon 11-18-2021 Platelet mean volume (Bld) [Entitic vol] 11.6 fL 6.2-12.0 [facility] Work Phone: Determination of erythrocyte mean corpuscular volume (MCV)on 11-18-2021 MCV (RBC) [Entitic vol] 90.6 fL 81-99 [facility] Work Phone: Hematocrit Auto (Bld) [Volum e fraction]on 11-18-2021 Hematocrit (Bld) [Volume fraction] 37.6 % 37-47 [facility] Work Phone: INR in Blood by Coagulation assayon 11-18-2021 INR Coag (Bld) [Relative time] 2.2 {INR} [facility] Work Phone: Laboratory - Chemistry and C hemistry - challengeon 11-18-2021 CO2 [Moles/Vol] 18.0 mmol/L 21.0-32.0 [facility] Work Phone: Urea nitrogen/Creatinine [Mass ratio] 26.5 mg/mg 10-20 [facility] Work Phone: Laboratory - Coagulationon 0 11-18-2021 PT Coag (PPP) [Time] 24.0 s 11.7-14.9 [facility] Work Phone: Laboratory - Hematology and Cell countson 11-18-2021 Erythrocyte distribution width (RBC) [Entitic vol] 48.8 fL 35.1-43.9 [facility] Work Phone: Erythrocyte distribution width (RBC) [Ratio] 14.6 % 11.6-14.6 [facility] Work Phone: Immature granulocytes/100 WBC (Bld) 0.400 % 0.0-0.9 [facility] Work Phone: Comment on above: IG% - Immature Granu locytes (promyelocytes, myelocytes and metamyelocytes) > 1% indicates that a LEFT SHIFT is Present. MCH (RBC) [Entitic mass] 29.9 pg 27.0-32.0 [facility] Work Phone: Nucleated RBC/100 WBC (Bld) [Ratio] 0 % 0-5 [facility] Work Phone: MCHC Auto (RBC) [Mass/Vol]on 11-18-2021 MCHC (RBC) [Mass/Vol] 33.0 g/dL 32-36 [facility] Work Phone: No Panel Informationon 11-18 Estimated Creatinine Clearance Calc 22.09 ml/min [facility] Work Phone: Estimated GFR (MDRD) Amer 38 mL/min >60 [facility] Work Phone: Comment on above: GFR Calc Estimated GFR (MDRD) Non-Af Amer 32 mL/min >60 [facility] Work Phone: Comment on above: Non- GFR Calc Platelets bldon 11-18-2021 Platelets (Bld) [#/Vol] 190 10*3/uL 150-450 [facility] Work Phone: Serum or plasma calcium scott urement (mass/volume)on 11-18-2021 Calcium [Mass/Vol] 7.9 mg/dL 8.5-10.1 [facility] Work Phone: Serum or plasma creatinine m easurement (mass/volume)on 11-18-2021 Creatinine [Mass/Vol] 1.66 mg/dL 0.55-1.02 [facility] Work Phone: Comment on above: The validity of the calculated GFR & GFRAA in patients over 70 years has not been determined. Clinical correlation is essential. Serum or plasma urea nitroge n measurement (mass/volume)on 11-18-2021 Urea nitrogen [Mass/Vol] 44 mg/dL 7-18 [facility] Work Phone: Thin prep Papanicolaou smear with manual screeningon 11-18-2021 Thin prep Papanicolaou smear with manual screening 11 5-15 [facility] Work Phone: Basophil percentageon 2021 Basophil percentage >100 SEEN /hpf 0-5 [facility] Work Phone: Lactate [Moles/Vol] 1.0 mmol/L 0.4-2.0 [facility] Work Phone: Bilirubin Test strip Ql (U)o n 11-17-2021 Bilirubin Ql (U) Negative Negative [facility] Work Phone: Ketones Test strip Ql (U)on 11-17-2021 Ketones Ql (U) 15 mg/dl Negative [facility] Work Phone: Mucus LM Ql (Urine sed)on Mucus Ql (Urine sed) 0 SEEN /hpf [facility] Work Phone: Nitrite Test strip Ql (U)on 11-17-2021 Nitrite Ql (U) Negative Negative [facility] Work Phone: No Panel Informationon 11-17 Troponin I High Sensitivity 482 pg/mL 3.0-54.0 [facility] Work Phone: Comment on above: Critical Result(s) C alled at: 10:36:40 11/17/2021 by: Jarett Hernandez to Bhargavi HAWKINS (ICU). Results read back by same. Please Note: New Test Units and Gender Specific Reference Ranges. For more information see Policy Stat Procedure [place] High Sensitivity Troponin (TNIH) and attachments. Protein Test strip Ql (U)on 11-17-2021 Protein Ql (U) 15 mg/dl Negative [facility] Work Phone: Squamous epithelial cells de tection in urine sediment by light microscopyon 11-17-2021 Epithelial cells.squamous LM Ql (Urine sed) 0-5 SEEN /hpf 5-10 [facility] Work Phone: Urine blood detectionon 10-22 RBC Ql (U) 10 /ul Negative [facility] Work Phone: RBC Ql (U) 0-5 SEEN /hpf 0-5 [facility] Work Phone: Urine clarityon 11-17-2021 Clarity (U) Sl. Cloudy Clear [facility] Work Phone: Urine color determinationon 11-17-2021 Color (U) Yellow Yellow [facility] Work Phone: Urine glucose detectionon Glucose Ql (U) Normal mg/dl Normal [facility] Work Phone: Urine leukocyte esterase det ection by dipstickon 11-17-2021 Leukocyte esterase Test strip Ql (U) 500 /ul Negative [facility] Work Phone: Urine pHon 11-17-2021 pH (U) 5.0 [pH] 5.0 - 8.0 [facility] Work Phone: Urine sediment bacteria coun t by microscopy (number/high power field)on 11-17-2021 Bacteria LM.HPF (Urine sed) [#/Area] RARE /hpf None Seen [facility] Work Phone: Urine specific gravity measu rementon 11-17-2021 Specific gravity (U) [Rel density] 1.015 1.002-1.030 [facility] Work Phone: Urobilinogen Auto test strip Ql (U)on 11-17-2021 Urobilinogen Ql (U) Normal mg/dl Normal [facility] Work Phone: Absolute lymphocyte counton 11-16-2021 Lymphocytes Auto (Unsp spec) [#/Vol] 3.63 10*3/uL 0.83-4.51 [facility] Work Phone: Basophil percentageon 2021 Basophils/100 WBC (Bld) 0.9 % 0-1 [facility] Work Phone: Bilirubin [Mass/Vol] 1.00 mg/dL 0.20-1.00 [facility] Work Phone: Comment on above: For patients on eltr ombopag therapy, use of Dimension [place] TBIL is not recommended. Chloride [Moles/Vol] 107 mmol/L 98-107 [facility] Work Phone: Eosinophils/100 WBC (Bld) 2.2 % 0-5 [facility] Work Phone: Glucose [Mass/Vol] 94 mg/dL 74-106 [facility] Work Phone: Neutrophils (Bld) [#/Vol] 6.3 10*3/uL 2.0-7.7 [facility] Work Phone: Neutrophils/100 WBC (Bld) 51.5 % 47-70 [facility] Work Phone: Potassium [Moles/Vol] 4.6 mmol/L 3.5-5.1 [facility] Work Phone: [phone] Protein [Mass/Vol] 6.4 g/dL 6.4-8.2 [facility] Work Phone: Sodium [Moles/Vol] 140 mmol/L 136-145 [facility] Work Phone: WBC (Bld) [#/Vol] 12.3 10*3/uL 4.4-11.0 [facility] Work Phone: Blood erythrocytes count (nu mber/volume)on 11-16-2021 RBC (Bld) [#/Vol] 5.36 10*6/uL 4.2-5.4 [facility] Work Phone: Blood hemoglobin measurement (mass/volume)on 11-16-2021 Hemoglobin (Bld) [Mass/Vol] 16.4 g/dL 12.0-15.0 [facility] Work Phone: Blood lymphocytes/100 leukoc yteson 11-16-2021 Lymphocytes/100 WBC (Bld) 29.6 % 19-41 [facility] Work Phone: Blood manual differential co mment interpretation (narrative result)on 11-16-2021 Manual differential comment Rafael (Bld) [Interp] SEE COMMENT [facility] Work Phone: Comment on above: MONOCYTOSIS NOTED Blood monocytes/100 leukocyt eson 11-16-2021 Monocytes/100 WBC (Bld) 14.8 % 0-10 [facility] Work Phone: Blood platelet adequacy dete ction by light microscopyon 11-16-2021 Platelets LM Ql (Bld) [facility] Work [facility]: Blood platelet mean volumeon 11-16-2021 Platelet mean volume (Bld) [Entitic vol] 11.8 fL 6.2-12.0 [facility] Work Phone: Determination of erythrocyte mean corpuscular volume (MCV)on 11-16-2021 MCV (RBC) [Entitic vol] 92.7 fL 81-99 [facility] Work Phone: Hematocrit Auto (Bld) [Volum e fraction]on 11-16-2021 Hematocrit (Bld) [Volume fraction] 49.7 % 37-47 [facility] Work Phone: INR in Blood by Coagulation assayon 11-16-2021 INR Coag (Bld) [Relative time] 1.5 {INR} [facility] Work Phone: Laboratory - Chemistry and C hemistry - challengeon 11-16-2021 ALP [Catalytic activity/Vol] 89 U/L 45-117 [facility] Work Phone: ALT [Catalytic activity/Vol] 25 U/L 13-56 [facility] Work Phone: [phone] CO2 [Moles/Vol] 23.0 mmol/L 21.0-32.0 [facility] Work Phone: Globulin (S) [Mass/Vol] 3.3 g/dL 2.2-4.2 [facility] Work Phone: Urea nitrogen/Creatinine [Mass ratio] 14.1 mg/mg 10-20 [facility] Work Phone: Laboratory - Coagulationon 0 11-16-2021 PT Coag (PPP) [Time] 17.8 s 11.7-14.9 [facility] Work Phone: Laboratory - Hematology and Cell countson 11-16-2021 Anisocytosis Ql (Bld) RARE [facility] Work Phone: Erythrocyte distribution width (RBC) [Entitic vol] 51.6 fL 35.1-43.9 [facility] Work Phone: Erythrocyte distribution width (RBC) [Ratio] 15.1 % 11.6-14.6 [facility] Work Phone: Immature granulocytes/100 WBC (Bld) 1.000 % 0.0-0.9 [facility] Work Phone: Comment on above: IG% - Immature Granu locytes (promyelocytes, myelocytes and metamyelocytes) > 1% indicates that a LEFT SHIFT is Present. MCH (RBC) [Entitic mass] 30.6 pg 27.0-32.0 [facility] Work Phone: Nucleated RBC/100 WBC (Bld) [Ratio] 0 % 0-5 [facility] Work Phone: MCHC Auto (RBC) [Mass/Vol]on 11-16-2021 MCHC (RBC) [Mass/Vol] 33.0 g/dL 32-36 [facility] Work Phone: Macrocytes detectionon 11-16 Macrocytes Ql (Bld) [facility] Work Phone: No Panel Informationon 11-16 Estimated Creatinine Clearance Calc 13.63 ml/min [facility] Work Phone: Estimated GFR (MDRD) Amer 22 mL/min >60 [facility] Work Phone: Comment on above: GFR Calc Estimated GFR (MDRD) Non-Af Amer 18 mL/min >60 [facility] Work Phone: Comment on above: Non- GFR Calc Troponin I High Sensitivity 619 pg/mL 3.0-54.0 [facility] Work Phone: Comment on above: Critical Result(s) C alled at: 23:23:33 11/16/2021 by: BALDO BARRETO TO DONALD STOKES. Results read back by same. Please Note: New Test Units and Gender Specific Reference Ranges. For more information see Policy Stat Procedure [place] High Sensitivity Troponin (TNIH) and attachments. Platelets bldon 11-16-2021 Platelets (Bld) [#/Vol] 220 10*3/uL 150-450 [facility] Work Phone: RBC morphologyon 11-16-2021 RBC morphology finding Nom (Bld) N CHROM NORMAL NORM C&C [facility] Work Phone: Review by pathologiston 10-22 Pathologist review Rafael (Unsp spec) [Interp] Agnieszka venegas [facility] Work Phone: Pathologist review Rafael (Unsp spec) [Interp] Reviewed [facility] Work Phone: Comment on above: Previous reported re sult: Agnieszka venegas Edited by: RGOOD on 11/17/21:1214Leukocytosis. PolycythemiaClinical correlation necessary.Alber Mccracken M.D. 11/17/21 AMENDED REPORT 11/17/21 1214 PATH REV previously reported as: June Serum or plasma albumin scott urement (mass/volume)on 11-16-2021 Albumin [Mass/Vol] 3.1 g/dL 3.2-5.0 [facility] Work Phone: Serum or plasma albumin/glob ulin mass ratioon 11-16-2021 Albumin/Globulin [Mass ratio] 0.9 {ratio} 0.9-2.4 [facility] Work Phone: Serum or plasma calcium scott urement (mass/volume)on 11-16-2021 Calcium [Mass/Vol] 9.9 mg/dL 8.5-10.1 [facility] Work Phone: Serum or plasma creatinine m easurement (mass/volume)on 11-16-2021 Creatinine [Mass/Vol] 2.69 mg/dL 0.55-1.02 [facility] Work Phone: Comment on above: The validity of the calculated GFR & GFRAA in patients over 70 years has not been determined. Clinical correlation is essential. Serum or plasma urea nitroge n measurement (mass/volume)on 11-16-2021 Urea nitrogen [Mass/Vol] 38 mg/dL 7-18 [facility] Work Phone: Thin prep Papanicolaou smear with manual screeningon 11-16-2021 Thin prep Papanicolaou smear with manual screening 29 U/L 15-37 [facility] Work Phone: Thin prep Papanicolaou smear with manual screening 10 5-15 [facility] Work Phone: Laboratory - Coagulationon 0 11-02-2021 INR Coag (Bld) [Relative time] 2.6 {INR} [facility] Work Phone: Comment on above: Critical Value > 4.0 Whole blood prothrombin time on 11-02-2021 PT Coag (Bld) [Time] 30.3 s 11.7-14.9 [facility] Work Phone: INR in Blood by Coagulation assayon 09-28-2021 INR Coag (Bld) [Relative time] 2.1 {INR} [facility] Work Phone: Laboratory - Coagulationon 0 09-28-2021 PT Coag (PPP) [Time] 23.2 s 11.7-14.9 [facility] Work Phone: Laboratory - Coagulationon 0 08-30-2021 INR Coag (Bld) [Relative time] 2.2 {INR} [facility] Work Phone: Comment on above: Critical Value > 4.0 Whole blood prothrombin time on 08-30-2021 PT Coag (Bld) [Time] 26.3 s 11.7-14.9 [facility] Work Phone: Laboratory - Coagulationon 0 07-26-2021 INR Coag (Bld) [Relative time] 2.7 {INR} [facility] Work Phone: Comment on above: Critical Value > 4.0 Whole blood prothrombin time on 07-26-2021 PT Coag (Bld) [Time] 30.6 s 11.7-14.9 [facility] Work Phone: Laboratory - Coagulationon 0 06-25-2021 INR Coag (Bld) [Relative time] 2.2 {INR} [facility] Work Phone: Comment on above: Critical Value > 4.0 Whole blood prothrombin time on 06-25-2021 PT Coag (Bld) [Time] 26.3 s 11.7-14.9 [facility] Work Phone: Laboratory - Coagulationon 0 05-27-2021 INR Coag (Bld) [Relative time] 2.7 {INR} [facility] Work Phone: Comment on above: Critical Value > 4.0 Whole blood prothrombin time on 05-27-2021 PT Coag (Bld) [Time] 31.5 s 11.7-14.9 [facility] Work Phone: Laboratory - Coagulationon 0 04-29-2021 INR Coag (Bld) [Relative time] 2.3 {INR} [facility] Work Phone: Comment on above: Critical Value > 4.0 Whole blood prothrombin time on 04-29-2021 PT Coag (Bld) [Time] 27.2 s 11.7-14.9 [facility] Work Phone: Laboratory - Coagulationon 0 03-31-2021 INR Coag (Bld) [Relative time] 2.4 {INR} [facility] Work Phone: Comment on above: Critical Value > 4.0 Whole blood prothrombin time on 03-31-2021 PT Coag (Bld) [Time] 27.6 s 11.9-14.4 [facility] Work Phone: Laboratory - Coagulationon 0 03-02-2021 INR Coag (Bld) [Relative time] 2.0 {INR} [facility] Work Phone: Comment on above: Critical Value > 4.0 Whole blood prothrombin time on 03-02-2021 PT Coag (Bld) [Time] 23.6 s 11.9-14.4 [facility] Work Phone: Laboratory - Coagulationon 1 04-04-2020 INR Coag (Bld) [Relative time] 2.0 {INR} [facility] Work Phone: Comment on above: Critical Value > 4.0 Whole blood prothrombin time on 02-01-2021 PT Coag (Bld) [Time] 23.0 s 11.9-14.4 [facility] Work Phone: CBCon 05-08-2020 Erythrocyte distribution width (RBC) [Ratio] 15.7 % High 11.5 - 14.5 [facility] ([place], [place]) Comment on above: Performed By: #### C BC #### [address] [id number] Hematocrit (Bld) [Volume fraction] 29.4 % Low 36.0 - 46.0 [facility] ([place], [place]) Comment on above: Performed By: #### C BC #### [address] [id number] Hemoglobin (Bld) [Mass/Vol] 9.5 g/dL Low 12.0 - 16.0 [facility] ([place], [place]) Comment on above: Performed By: #### C BC #### [address] [id number] MCHC (RBC) [Mass/Vol] 32.3 g/dL Normal 32.0 - 36.0 [facility] ([place], [place]) Comment on above: Performed By: #### C BC #### [address] [id number] MCV (RBC) [Entitic vol] 92 fL Normal 80 - 100 [facility] ([place], [place]) Comment on above: Performed By: #### C BC #### [address] [id number] Platelets (Bld) [#/Vol] 292 10*3/uL Normal 150 - 450 [facility] ([place], [place]) Comment on above: Performed By: #### C BC #### [address] [id number] RBC (Bld) [#/Vol] 3.21 x10E12/L Low 4.00 - 5.20 [facility] ([place], [place]) Comment on above: Performed By: #### C BC #### [address] [id number] WBC (Bld) [#/Vol] 16.2 10*3/uL High 4.4 - 11.3 [facility] Comment on above: Performed By: #### C BC #### [address] [id number] COMPREHENSIVE PANELon 2020 Albumin [Mass/Vol] 2.8 g/dL Low 3.4 - 5.0 [facility] Comment on above: Performed By: #### C A #### [address] [place] [id number] ALP [Catalytic activity/Vol] 85 U/L Normal 33 - 136 [facility] ([place], [place]) Comment on above: Performed By: #### C A #### [address] [id number] ALT [Catalytic activity/Vol] 28 U/L Normal 7 - 45 [facility] ([place], [place]) Comment on above: Result Comment: Liz ents treated with Sulfasalazine may generate falsely decreased results for ALT. Performed By: #### C A #### [address] [id number] Anion gap [Moles/Vol] 13 mmol/L Normal 10 - 20 [facility] ([place], [place]) Comment on above: Performed By: #### C A #### [address] [id number] AST [Catalytic activity/Vol] 17 U/L Normal 9 - 39 [facility] ([place], [place]) Comment on above: Performed By: #### C A #### [address] [id number] Bilirubin [Mass/Vol] 0.8 mg/dL Normal 0.0 - 1.2 [facility] Comment on above: Performed By: #### C A #### [address] [id number] Calcium [Mass/Vol] 9.0 mg/dL Normal 8.6 - 10.3 [facility] Comment on above: Performed By: #### C A #### [address] [id number] Chloride [Moles/Vol] 101 mmol/L Normal 98 - 107 [facility] Comment on above: Performed By: #### C A #### [address] [id number] Creatinine [Mass/Vol] 1.87 mg/dL High 0.50 - 1.05 [facility] ([place], [place]) Comment on above: Performed By: #### C A #### [address] [id number] GFR- AM. 31 mL/min/1.73m2 Abnormal >60 [facility] ([place], [place]) Comment on above: Result Comment: CALC ULATIONS OF ESTIMATED GFR ARE PERFORMED USING THE MDRD STUDY EQUATION FOR THE IDMS-TRACEABLE CREATININE METHODS. CLIN CHEM 2007;53:766-72 Performed By: #### C A #### [address] [id number] GFR-NON AM. 26 mL/min/1.73m2 Abnormal >60 [facility] ([place], [place]) Comment on above: Performed By: #### C A #### [address] [id number] Glucose [Mass/Vol] 92 mg/dL Normal 74 - 99 [facility] Comment on above: Performed By: #### C A #### [address] [id number] HCO3 (Bld) [Moles/Vol] 30 mmol/L Normal 21 - 32 [facility] ([place], [place]) Comment on above: Performed By: #### C A #### [address] [id number] Potassium [Moles/Vol] 4.0 mmol/L Normal 3.5 - 5.3 [facility] ([place], [place]) Comment on above: Performed By: #### C A #### [address] [id number] Protein [Mass/Vol] 4.8 g/dL Low 6.4 - 8.2 [facility] Comment on above: Performed By: #### C A #### [address] [id number] Sodium [Moles/Vol] 140 mmol/L Normal 136 - 145 [facility] Comment on above: Performed By: #### C A #### [address] [id number] Urea nitrogen [Mass/Vol] 50 mg/dL High 6 - 23 [facility] ([place], [place]) Comment on above: Performed By: #### C A #### [address] [id number] Daily Progress Note-Endocrin litzy 05-08-2020 Daily Progress [...] reviewed Objective Data: Objective Information: T PRBPSpO2 Value36.69621576/9499% Date/Time05/08 14: 14: 14: 14: 14:14 Range(35.8C - 37.6C ) (71 - 80 ) (18 - 20 ) (143 - 174 )/ (86 - 99 ) (95% - 99% ) Highest temp of 37.6 C was recorded at 05/08 7:55 Pain reported at 05/08 9:31: 0 = None ---- Intake and Output ----- Mn/Dy/Year TimeIntakeOutputNet May 08, 2020 2:00 [id number] May 08, 2020 6:00 [id number] May 07, 2020 10:00 [id number] The Intake and Output Totals for the last 24 hours are: IntakeOutunm [facility] [id number] Physical Exam by System: Constitutional: Well developed, [...] laboratory results: Comprehensive Metabolic Panel Trending View [id number] 05:22:00 07-May-2020 05:42:00 Glucose, Serum92 86 NA140 136 K4.0 4.0 CL101 99 Bicarbonate, Serum30 27 Anion Gap, Serum13 14 BUN50 H 55 H CREAT1.87 H 1.95 H GFR-Non Txymphrf30 A 25 A GFR- Iitxxkcb07 A 30 A Calcium, Serum9.0 9.0 ALB2.8 [...] Updated: 08-May-2020 16:01 by Alexander Gregory) Normal [facility] ([place], [place]) Daily Progress Note-General Internal Medicineon 05-08-2020 Daily Progress Note-General Internal Medicine Service: General Internal Medicine Subjective Data: LINDA PERALTA is a 75 year old Female who is Hospital Day # 7. And examined, denies any fever, chills, chest pain, shortness of breath. Feels much improved. Rest of the ROS is negative. Objective Data: Objective Information: T PRBPSpO2 Value37.59378167/9699% Date/Time05/08 7: 7: 7: 7: 7:55 Range(35.8C - 37.6C ) (71 - 82 ) (18 - 20 ) (131 - 174 )/ (86 - 99 ) (95% - 99% ) Highest temp of 37.6 C was recorded at 05/08 7:55 Pain reported at 05/08 9:31: 0 = None ---- Intake and Output ----- Mn/Dy/Year TimeIntakeOutputNet May 08, 2020 6:00 [id number] May 07, 2020 10:00 [id number] May 07, 2020 2:00 [id number] The Intake and Output Totals for the last 24 hours are: IntakeOutputNet [id number] Physical Exam by System: Constitutional: Well developed, [...] Updated: 08-May-2020 11:38 by Baldo South) Normal [facility] ([place], [place]) Daily Progress Note-Infectio us Diseaseon 05-08-2020 Daily Progress Note-Infectious Disease Service: Infectious Disease History of Present Illness: History Present Illness: HPI: Possible aspiration pneumonia Recent UTI with Citrobacter No fevers chills sweats minimal cold No shortness of breath cough no diarrhea Subjective Data: LINDA PERALTA is a 75 year old Female who is Hospital Day # 7. Objective Data: Objective Information: T PRBPSpO2 Value36.79391506/9499% Date/Time05/08 14: 14: 14: 14: 14:14 Range(35.8C - 37.6C ) (71 - 80 ) (18 - 20 ) (143 - 174 )/ (86 - 99 ) (95% - 99% ) Highest temp of 37.6 C was recorded at 05/08 7:55 Pain reported at 05/08 9:31: 0 = None ---- Intake and Output ----- Mn/Dy/Year TimeIntakeOutputNet May 08, 2020 2:00 [id number] May 08, 2020 6:00 [id number] May 07, 2020 10:00 [id number] The Intake and Output Totals for the last 24 hours are: IntakeOutputNet [id number] T PRBPSpO2 Value36.38511432/9499% Date/Time05/08 14: 14: 14: 14: 14:14 Range(35.8C [...] RA Area A4C: 16.4 cm2 RA Major [place] A4C: 5.0 cm M-MODE MEASUREMENTS: Normal Ranges: [...] 1.2 m/s (0.6-0.9m/s) PV Max P.2 mmHg [id number] Tremayne Mcleod MD Electronically signed on 05/02/2020 [...] Last Updated: 08-May-2020 14:34 by Alberto Allred) [facility] Daily Progress Note-Nephrolo gyon 05-08-2020 Daily Progress Note-Nephrology Service: Nephrology Subjective Data: LINDA PERALTA is a 75 year old Female who is Hospital Day # 7. renal function improving, pt feeling better. Objective Data: Objective Information: T PRBPSpO2 Value37.47545168/9699% Date/Time05/08 7:5505/08 7: 7:5505/08 7:5505/08 7:55 Range(35.8C - 37.6C ) (71 - 82 ) (18 - 20 ) (131 - 174 )/ (86 - 99 ) (95% - 99% ) Highest temp of 37.6 C was recorded at 05/08 7:55 Pain reported at 05/08 9:31: 0 = None ---- Intake and Output ----- Mn/Dy/Year TimeIntakeOutputNet May 08, 2020 6:00 [id number] May 07, 2020 10:00 [id number] May 07, 2020 2:00 [id number] The Intake and Output Totals for the last 24 hours are: IntakeOutputNet [id number] Constitutional: Alert, in no acute distress HEENT: [...] partial nephrectomy, DVT/PE who was initially at [place] for AMS, hypercalcemia and hypotension now transferred here. 1. ANGELA on CKD: previously hypotensive at [place], now hypertensive, also CRS as pt is [...] to f/u in 2 weeks w/ her aed trainer in [place] Electronic Signatures: Leigh Billy) (Signed 08-May-2020 13:43) Authored: Service, Subjective Data, Objective Data, Assessment and Plan, Note Completion Last Updated: 08-May-2020 13:43 by Leigh Billy) Normal [facility] ([place], [place]) Daily Progress Note-Urologyo n 05-08-2020 Daily Progress [...] reviewed. Objective Data: Objective Information: T PRBPSpO2 Value36.37184434/9499% Date/Time05/08 14: 14: 14: 14: 14:14 Range(35.8C - 37.6C ) (71 - 80 ) (18 - 20 ) (143 - 174 )/ (86 - 99 ) (95% - 99% ) Highest temp of 37.6 C was recorded at 05/08 7:55 Pain reported at 05/08 9:31: 0 = None ---- Intake and Output ----- Mn/Dy/Year TimeIntakeOutputNet May 08, 2020 2:00 [id number] May 08, 2020 6:00 [id number] May 07, 2020 10:00 [id number] The Intake and Output Totals for the last 24 hours are: IntakeOutputNet [id number] Recent Lab Results: Results: CBC: 05/08/2020 05:22 [...] Last Updated: 08-May-2020 16:22 by Alvin Sawyer) [facility] Order Reconciliationon 05-08 Order Reconciliation Page [...] 1 spray(s) Each Nostril DailyNotes from Pharmacy: [facility] 02-May-2020 02:08 Fluticasone 50 microgram/ Nasal [...] Injectable DOSE = 0.5 mL IntraVenous Push OnceCa.925728 mL/Kg/DOSE x 74.5 Kg = 0.5 mL/Dose [...] be shared with your follow-up providers (doctor, b2b sales executive, physical therapist, etc.). Guidelines for a Healthy [...] be shared with your follow-up providers (doctor, b2b sales executive, physical therapist, etc.). dupilumab 300 milligram(s) subcutaneous [...] 1 tab(s) orally once a day Normal [facility] ([place], [place]) CBCon 05-07-2020 Erythrocyte distribution width (RBC) [Ratio] 15.5 % High 11.5 - 14.5 [facility] ([place], [place]) Comment on above: Performed By: #### C BC ####[facility] [place], [place] [id number] Hematocrit (Bld) [Volume fraction] 30.4 % Low 36.0 - 46.0 [facility] ([place], [place]) Comment on above: Performed By: #### C BC ####[facility] [place], [place] [id number] Hemoglobin (Bld) [Mass/Vol] 9.8 g/dL Low 12.0 - 16.0 [facility] ([place], [place]) Comment on above: Performed By: #### C BC ####[address] [id number] MCHC (RBC) [Mass/Vol] 32.2 g/dL Normal 32.0 - 36.0 [facility] ([place], [place]) Comment on above: Performed By: #### C BC ####[address] [id number] MCV (RBC) [Entitic vol] 92 fL Normal 80 - 100 [facility] ([place], [place]) Comment on above: Performed By: #### C BC ####[address] [id number] Platelets (Bld) [#/Vol] 279 10*3/uL Normal 150 - 450 [facility] ([place], [place]) Comment on above: Performed By: #### C BC ####[address] [id number] RBC (Bld) [#/Vol] 3.31 x10E12/L Low 4.00 - 5.20 [facility] ([place], [place]) Comment on above: Performed By: #### C BC ####[address] [id number] WBC (Bld) [#/Vol] 18.5 10*3/uL High 4.4 - 11.3 [facility] Comment on above: Performed By: #### C BC ####[address] [id number] COMPREHENSIVE PANELon 2020 Albumin [Mass/Vol] 2.9 g/dL Low 3.4 - 5.0 [facility] Comment on above: Performed By: #### C MP #### [address] [id number] ALP [Catalytic activity/Vol] 80 U/L Normal 33 - 136 [facility] ([place], [place]) Comment on above: Performed By: #### C MP #### [address] [id number] ALT [Catalytic activity/Vol] 31 U/L Normal 7 - 45 [facility] ([place], [place]) Comment on above: Result Comment: Lzi ents treated with Sulfasalazine may generate falsely decreased results for ALT. Performed By: #### C MP #### [address] [id number] Anion gap [Moles/Vol] 14 mmol/L Normal 10 - 20 [facility] ([place], [place]) Comment on above: Performed By: #### C MP #### [address] [id number] AST [Catalytic activity/Vol] 20 U/L Normal 9 - 39 [facility] ([place], [place]) Comment on above: Performed By: #### C MP #### [address] [id number] Bilirubin [Mass/Vol] 0.9 mg/dL Normal 0.0 - 1.2 [facility] Comment on above: Performed By: #### C MP #### [address] [id number] Calcium [Mass/Vol] 9.0 mg/dL Normal 8.6 - 10.3 [facility] Comment on above: Performed By: #### C MP #### [address] [id number] Chloride [Moles/Vol] 99 mmol/L Normal 98 - 107 [facility] Comment on above: Performed By: #### C MP #### [address] [id number] Creatinine [Mass/Vol] 1.95 mg/dL High 0.50 - 1.05 [facility] ([place], [place]) Comment on above: Performed By: #### C MP #### [address] [id number] GFR- AM. 30 mL/min/1.73m2 Abnormal >60 [facility] ([place], [place]) Comment on above: Result Comment: CALC ULATIONS OF ESTIMATED GFR ARE PERFORMED USING THE MDRD STUDY EQUATION FOR THE IDMS-TRACEABLE CREATININE METHODS. CLIN CHEM 2007;53:766-72 Performed By: #### C MP #### [address] [id number] GFR-NON AM. 25 mL/min/1.73m2 Abnormal >60 [facility] ([place], [place]) Comment on above: Performed By: #### C MP #### [address] [id number] Glucose [Mass/Vol] 86 mg/dL Normal 74 - 99 [facility] Comment on above: Performed By: #### C MP #### [address] [id number] HCO3 (Bld) [Moles/Vol] 27 mmol/L Normal 21 - 32 [facility] ([place], [place]) Comment on above: Performed By: #### C MP #### [address] [id number] Potassium [Moles/Vol] 4.0 mmol/L Normal 3.5 - 5.3 [facility] ([place], [place]) Comment on above: Performed By: #### C MP #### [address] [id number] Protein [Mass/Vol] 5.0 g/dL Low 6.4 - 8.2 [facility] Comment on above: Performed By: #### C MP #### [address] [id number] Sodium [Moles/Vol] 136 mmol/L Normal 136 - 145 [facility] Comment on above: Performed By: #### C MP #### [address] [id number] Urea nitrogen [Mass/Vol] 55 mg/dL High 6 - 23 [facility] ([place], [place]) Comment on above: Performed By: #### C #### [address] [id number] Daily Progress Note-General Internal Medicineon 05-07-2020 Daily Progress Note-General Internal Medicine Service: General Internal Medicine Subjective Data: LINDA PERALTA is a 75 year old Female who is Hospital Day # 6. Seen and examined, denies any fever, chills, chest pain, shortness of breath. Rest of the ROS is negative. Objective Data: Objective Information: T PRBPSpO2 Value36.08998159/8697% Date/Time05/07 14: 14: 14: 14: 14:03 Range(36C - 36.8C ) (77 - 85 ) (18 - 20 ) (125 - 170 )/ (80 - 98 ) (94% - 97% ) Pain reported at 05/07 12:04: 0 = None ---- Intake and Output ----- Mn/Dy/Year TimeIntakeOutputNet May 07, 2020 2:00 [id number] May 06, 2020 10:00 [id number] The Intake and Output Totals for the last 24 hours are: IntakeOutputNet [id number] Physical Exam by System: Constitutional: Well developed, [...] Last Updated: 07-May-2020 14:49 by Baldo South) [facility] Daily Progress Note-Infectio us Diseaseon 05-07-2020 Daily Progress Note-Infectious Disease Service: Infectious Disease History of Present Illness: History Present Illness: HPI: Possible aspiration pneumonia Recent UTI with Citrobacter No fevers chills sweats minimal cold Subjective Data: LINDA PERALTA is a 75 year old Female who is Hospital Day # 6. Objective Data: Objective Information: T PRBPSpO2 Value36.67393886/9897% Date/Time05/07 8: 8: 8: 8: 8:01 Range(36C - 36.8C ) (77 - 85 ) (18 - 20 ) (125 - 170 )/ (80 - 98 ) (94% - 98% ) Pain reported at 05/07 12:04: 0 = None ---- Intake and Output ----- Mn/Dy/Year [facility]IntakeOutCar[facility] May 06, 2020 10:00 [id number] May 06, 2020 2:00 [id number] The Intake and Output Totals for the last 24 hours are: IntakeOutCarolin[facility] [id number] T PRBPSpO2 Value36.35245035/9897% Date/Time05/07 8: 8: 8: 8: 8:01 Range(36C [...] RA Area A4C: 16.4 cm2 RA [place] A4C: 5.0 cm M-MODE MEASUREMENTS: Normal Ranges: [...] 1.2 m/s (0.6-0.9m/s) PV Max P.2 mmHg [id number] Tremayne Mcleod MD Electronically signed on 05/02/2020 [...] Updated: 07-May-2020 13:30 by Alberto Allred) Normal [facility] ([place], [place]) Daily Progress Note-Nephrolo gyon 05-07-2020 Daily Progress Note-Nephrology Service: Nephrology Subjective Data: LINDA PERALTA is a 75 year old Female who is Hospital Day # 6. renal function continues to slowly improve, uric acid and phos improving as well. Objective Data: Objective Information: T PRBPSpO2 Value36.47696429/9897% Date/Time05/07 8: 8: 8: 8: 8:01 Range(36C - 36.8C ) (77 - 85 ) (18 - 20 ) (125 - 170 )/ (80 - 98 ) (94% - 98% ) Pain reported at 05/06 23:56: 0 = None ---- Intake and Output ----- Mn/Dy/Year TimeIntakeOutputNet May 06, 2020 10:00 [id number] May 06, 2020 2:00 [id number] The Intake and Output Totals for the last 24 hours are: IntakeOutputNet [id number] Constitutional: Alert, in no acute distress HEENT: [...] partial nephrectomy, DVT/PE who was initially at [place] for AMS, hypercalcemia and hypotension now transferred here. 1. ANGELA on CKD: previously hypotensive at [place], now hypertensive, also CRS as pt is [...] Updated: 07-May-2020 11:30 by Leigh Billy) Normal [facility] ([place], [place]) Daily Progress Note-Neurolog yon 05-07-2020 Daily Progress [...] better. Objective Data: Objective Information: T PRBPSpO2 Value36.49383757/8697% Date/Time05/07 19: 19: 19: 19: 19:14 Range(36C - 36.6C ) (77 - 85 ) (20 - 20 ) (131 - 170 )/ (80 - 98 ) (94% - 97% ) Pain reported at 05/07 12:04: 0 = None ---- Intake and Output ----- Mn/Dy/Year TimeIntakeOutputNet May 07, 2020 2:00 [id number] May 06, 2020 10:00 [id number] The Intake and Output Totals for the last 24 hours are: IntakeOutputNet [id number] Physical Exam by System: Neurological: The patient [...] kidney to her brother Sarcoidosis History of Ritchie's disease Gout Chronic kidney disease Hyperlipidemia Atopic [...] Last Updated: 07-May-2020 19:58 by Vicky Boyd) [facility] Daily Progress Note-Neurology Service: Neurology Subjective [...] better. Objective Data: Objective Information: T PRBPSpO2 Value36.57315627/8194% Date/Time05/06 19: 19: 19: 19: 19:32 Range(36.6C - 36.8C ) (71 - 85 ) (18 - 18 ) (125 - 162 )/ (81 - 96 ) (88% - 99% ) Pain reported at 05/06 11:17: 0 = None ---- Intake and Output ----- Mn/Dy/Year TimeIntakeOutputNet May 06, 2020 10:00 [id number] May 06, 2020 2:00 [id number] The Intake and Output Totals for the last 24 hours are: IntakeOutputNet [id number] Physical Exam by System: Neurological: The patient [...] kidney to her brother Sarcoidosis History of Ritchie's disease Gout Chronic kidney disease Hyperlipidemia Atopic [...] Updated: 06-May-2020 22:03 by Vicky Boyd) Normal [facility] ([place], [place]) Daily Progress Note-Urologyo n 05-07-2020 Daily Progress [...] below. Objective Data: Objective Information: T PRBPSpO2 Value36.50433223/8697% Date/Time05/07 14: 14: 14: 14: 14:03 Range(36C - 36.8C ) (77 - 85 ) (18 - 20 ) (125 - 170 )/ (80 - 98 ) (94% - 97% ) Pain reported at 05/07 12:04: 0 = None ---- Intake and Output ----- [facility] 07, 2020 2:00 [id number] May 06, 2020 10:00 [id number] The Intake and Output Totals for the last 24 hours are: IntakeOutputNet [id number] T PRBPSpO2 Value36.03679912/8697% Date/Time05/07 14: 14: 14: 14: 14:03 Range(36C - 36.8C ) (77 - 85 ) (18 - 20 ) (125 - 170 )/ (80 - 98 ) (94% - 97% ) Pain reported at 05/07 12:04: 0 = None ---- Intake and Output ----- [facility] May 07, 2020 2:00 [id number] May 06, 2020 10:00 [id number] The Intake and Output Totals for the last 24 hours are: IntakeOutputNet [id number] ---Intake--- Enteral - Oral PO Fluid/Feed (oral): [...] 8.1 H Basic Metabolic Panel Trending View [id number] 16:58:00 06-May-2020 05:38:00 Glucose, [id number] H 100 H NA138 141 K3.9 2.9 LL CL97 L 100 Bicarbonate, Serum31 32 Anion Gap, Serum14 12 BUN57 H 62 H CREAT2.05 H 2.15 H GFR-Non Suyxyhbo48 A 22 A GFR- Mdbmpkcb01 A 27 A Calcium, Serum9.0 9.0 Lab [...] Updated: 07-May-2020 16:37 by Alvin Sawyer) Normal [facility] ([place], [place]) PHOSPHORUSon 05-07-2020 Phosphate [Mass/Vol] 3.3 mg/dL Normal 2.5 - 4.9 [facility] Comment on above: Result Comment: The performance characteristics of phosphorus testing in heparinized plasma have been validated by the individual laboratory site where testing is performed. Testing on heparinized plasma is not approved by the FDA; however, such approval is not necessary. Performed By: #### C A #### [address] [id number] PTH RELATED PROTEINon 2020 Protein [Mass/Vol] 0.5 pmol/L Normal < or = 4.2 [facility] Comment on above: Result Comment: ---- ADDITIONAL INFORMATION This test was developed and its performance characteristics determined by [facility] in a manner consistent with CLIA requirements. This test has not been cleared or approved by the U.S. Food and Drug Administration. Test Performed by: [facility] [address] [place] [address] Manager Unit: Sunny Triplett M.D. Ph.D.; CLIA# [id number] Performed By: #### P R12 #### [facility] [address] [place] [address] Protein [Mass/Vol] 0.8 pmol/L Normal < or = 4.2 [facility] Comment on above: Result Comment: ---- ADDITIONAL INFORMATION This test was developed and its performance characteristics determined by [facility] in a manner consistent with CLIA requirements. This test has not been cleared or approved by the U.S. Food and Drug Administration. Test Performed by: [facility] [address] [place] [address] Manager Unit: Sunny Triplett M.D. Ph.D.; CLIA# [id number] Performed By: #### C BC #### [address] [id number] URIC ACIDon 05-07-2020 Urate [Mass/Vol] 8.1 mg/dL High 2.3 - 6.7 [facility] Comment on above: Result Comment: Nadia puncture immediately after or during the administration of Metamizole may lead to falsely low results. Testing should be performed immediately prior to Metamizole dosing. Performed By: #### C BC #### [address] [id number] BASIC METABOLIC PANELon 04-20 Anion gap [Moles/Vol] 14 mmol/L Normal 10 - 20 [facility] ([place], [place]) Comment on above: Performed By: #### C A #### [address] [id number] Calcium [Mass/Vol] 9.0 mg/dL Normal 8.6 - 10.3 [facility] Comment on above: Performed By: #### C A #### [address] [id number] Chloride [Moles/Vol] 97 mmol/L Low 98 - 107 [facility] Comment on above: Performed By: #### C A #### [address] [id number] Creatinine [Mass/Vol] 2.05 mg/dL High 0.50 - 1.05 [facility] ([place], [place]) Comment on above: Performed By: #### C A #### [address] [id number] GFR- AM. 28 mL/min/1.73m2 Abnormal >60 [facility] ([place], [place]) Comment on above: Result Comment: CALC ULATIONS OF ESTIMATED GFR ARE PERFORMED USING THE MDRD STUDY EQUATION FOR THE IDMS-TRACEABLE CREATININE METHODS. CLIN CHEM 2007;53:766-72 Performed By: #### C A #### [address] [id number] GFR-NON AM. 23 mL/min/1.73m2 Abnormal >60 [facility] ([place], [place]) Comment on above: Performed By: #### C A #### [address] [id number] Glucose [Mass/Vol] 124 mg/dL High 74 - 99 [facility] Comment on above: Performed By: #### C A #### [address] [id number] HCO3 (Bld) [Moles/Vol] 31 mmol/L Normal 21 - 32 [facility] ([place], [place]) Comment on above: Performed By: #### C A #### [address] [id number] Potassium [Moles/Vol] 3.9 mmol/L Normal 3.5 - 5.3 [facility] ([place], [place]) Comment on above: Performed By: #### C A #### [address] [id number] Sodium [Moles/Vol] 138 mmol/L Normal 136 - 145 [facility] Comment on above: Performed By: #### C A #### [address] [id number] Urea nitrogen [Mass/Vol] 57 mg/dL High 6 - 23 [facility] ([place], [place]) Comment on above: Performed By: #### C A #### [address] [id number] Anion gap [Moles/Vol] 12 mmol/L Normal 10 - 20 [facility] ([place], [place]) Comment on above: Order Comment: Walker d- RB to [place], 05/06/2020 06:54 Performed By: #### B MP ####[facility] [place] [address] [id number] Calcium [Mass/Vol] 9.0 mg/dL Normal 8.6 - 10.3 [facility] Comment on above: Order Comment: Walker d- RB to [place], 05/06/2020 06:54 Performed By: #### B MP ####[address] [id number] Chloride [Moles/Vol] 100 mmol/L Normal 98 - 107 [facility] Comment on above: Order Comment: Walker d- RB to [place], 05/06/2020 06:54 Performed By: #### B MP ####[address] [id number] Creatinine [Mass/Vol] 2.15 mg/dL High 0.50 - 1.05 [facility] ([place], [place]) Comment on above: Order Comment: Walker d- RB to [place], 05/06/2020 06:54 Performed By: #### B MP ####[address] [id number] GFR- AM. 27 mL/min/1.73m2 Abnormal >60 [facility] ([place], [place]) Comment on above: Order Comment: Walker d- RB to [place], 05/06/2020 06:54 Result Comment: CALC ULATIONS OF ESTIMATED GFR ARE PERFORMED USING THE MDRD STUDY EQUATION FOR THE IDMS-TRACEABLE CREATININE METHODS. CLIN CHEM 2007;53:766-72 Performed By: #### B MP ####[address] [id number] GFR-NON AM. 22 mL/min/1.73m2 Abnormal >60 [facility] ([place], [place]) Comment on above: Order Comment: Walker d- RB to [place], 05/06/2020 06:54 Performed By: #### B MP ####[facility] [place], [place] [id number] Glucose [Mass/Vol] 100 mg/dL High 74 - 99 [facility] Comment on above: Order Comment: Walker d- RB to [place], 05/06/2020 06:54 Performed By: #### B MP ####[address] [id number] HCO3 (Bld) [Moles/Vol] 32 mmol/L Normal 21 - 32 [facility] ([place], [place]) Comment on above: Order Comment: Walker d- RB to [place], 05/06/2020 06:54 Performed By: #### B MP ####[address] [id number] Potassium [Moles/Vol] 2.9 mmol/L Critically low 3.5 - 5.3 [facility] ([place], [place]) Comment on above: Order Comment: Walker d- RB to [place], 05/06/2020 06:54 Result Comment: Call ed- RB to [place], 05/06/2020 06:54 Performed By: #### B MP ####[address] [id number] Sodium [Moles/Vol] 141 mmol/L Normal 136 - 145 [facility] Comment on above: Order Comment: Walker d- RB to [place], 05/06/2020 06:54 Performed By: #### B MP ####[address] [id number] Urea nitrogen [Mass/Vol] 62 mg/dL High 6 - 23 [facility] ([place], [place]) Comment on above: Order Comment: Walker d- RB to [place], 05/06/2020 06:54 Performed By: #### B MP ####[address] [id number] Daily Progress Note-Endocrin litzy 05-06-2020 Daily Progress [...] potassium Objective Data: Objective Information: T PRBPSpO2 Value36.46898106/9099% Date/Time05/06 7: 7: 7: 7: 7:33 Range(36.2C - 36.7C ) (71 - 82 ) (18 - 18 ) (136 - 162 )/ (82 - 96 ) (88% - 99% ) Pain reported at 05/06 11:17: 0 = None ---- Intake and Output ----- Mn/Dy/Year TimeIntakeOutputNet May 05, 2020 10:00 [id number] May 05, 2020 2:00 [id number] The Intake and Output Totals for the last 24 hours are: IntakeOutputNet [id number] T PRBPSpO2 Value36.81944744/9099% Date/Time05/06 7: 7: 7: 7: 7:33 Range(36.2C [...] laboratory results: Basic Metabolic Panel Trending View [id number] 05:38:00 05-May-2020 05:34:00 Lab Comment:Called- RB to [place], 05/06/2020 06:54 Called- RB to Catherine Marroquin, 05/05/2020 06:47 Glucose, Rllsb993 H 98 NA141 139 K2.9 LL 2.9 LL CL100 100 Bicarbonate, Serum32 31 Anion Gap, Serum12 11 BUN62 H 72 H CREAT2.15 H 2.28 H GFR-Non Mdnjhovn96 A 21 A GFR- Dyvtiawo63 A 25 A Calcium, Serum9.0 9.1 Magnesium, [...] Updated: 06-May-2020 12:32 by Alexander Gregory) Normal [facility] ([place], [place]) Daily Progress Note-General Internal Medicineon 05-06-2020 Daily [...] negative. Objective Data: Objective Information: T PRBPSpO2 Value36.10733255/8498% Date/Time05/06 13: 13: 13: 13: 13:40 Range(36.2C - 36.7C ) (71 - 82 ) (18 - 18 ) (132 - 162 )/ (82 - 96 ) (88% - 99% ) Pain reported at 05/06 11:17: 0 = None ---- Intake and Output ----- Mn/Dy/Year TimeIntakeOutputNet May 05, 2020 10:00 [id number] May 05, 2020 2:00 [id number] The Intake and Output Totals for the last 24 hours are: IntakeOutputNet [id number] Physical Exam by System: Constitutional: Well developed, [...] Last Updated: 06-May-2020 13:56 by Baldo South) [facility] Daily Progress Note-Infectio us Diseaseon 05-06-2020 Daily Progress Note-Infectious Disease Service: Infectious Disease History of Present Illness: History Present Illness: HPI: Possible aspiration pneumonia Recent UTI with Citrobacter No fevers chills sweats minimal cold Subjective Data: LINDA PERALTA is a 75 year old Female who is Hospital Day # 5. Objective Data: Objective Information: T PRBPSpO2 Value36.22318568/9099% Date/Time05/06 7: 7: 7: 7: 7:33 Range(36.2C - 36.7C ) (71 - 82 ) (18 - 18 ) (136 - 162 )/ (82 - 96 ) (88% - 99% ) Pain reported at 05/06 11:17: 0 = None ---- Intake and Output ----- Mn/Dy/Year TimeIntakeOutputNet May 05, 2020 10:00 [id number] May 05, 2020 2:00 [id number] The Intake and Output Totals for the last 24 hours are: IntakeOutputNet [id number] T PRBPSpO2 Value36.32712065/9099% Date/Time05/06 7: 7: 7: 7: 7:33 Range(36.2C [...] RA Area A4C: 16.4 cm2 RA [place] A4C: 5.0 cm M-MODE MEASUREMENTS: Normal Ranges: [...] 1.2 m/s (0.6-0.9m/s) PV Max P.2 mmHg [id number] Tremayne Mcleod MD Electronically signed on 05/02/2020 [...] Last Updated: 06-May-2020 12:25 by Alberto Allred) [facility] Daily Progress Note-Nephrolo deangeloon 05-06-2020 Daily Progress Note-Nephrology Service: Nephrology Subjective Data: LINDA PERALAT is a 75 year old Female who is Hospital Day # 5. renal function slowly improving, K low this AM, getting corrected, feels better. Objective Data: Objective Information: T PRBPSpO2 Value36.04883106/9099% Date/Time05/06 7: 7: 7: 7: 7:33 Range(36.2C - 36.7C ) (71 - 82 ) (18 - 18 ) (136 - 162 )/ (82 - 96 ) (88% - 99% ) Pain reported at 05/06 0:50: 0 = None ---- Intake and Output ----- Mn/Dy/Year TimeIntakeOutputNet May 05, 2020 10:00 [id number] May 05, 2020 2:00 [id number] The Intake and Output Totals for the last 24 hours are: IntakeOutputNet [id number] Constitutional: Alert, in no acute distress HEENT: [...] partial nephrectomy, DVT/PE who was initially at [place] for AMS, hypercalcemia and hypotension now transferred here. 1. ANGELA on CKD: previously hypotensive at [place], now hypertensive, also CRS as pt is [...] Updated: 06-May-2020 11:02 by Leigh Billy) Normal [facility] ([place], [place]) Daily Progress Note-Urologyo n 05-06-2020 Daily Progress [...] below. Objective Data: Objective Information: T PRBPSpO2 Value36.60950330/8498% Date/Time05/06 13: 13: 13: 13: 13:40 Range(36.5C - 36.7C ) (71 - 82 ) (18 - 18 ) (132 - 162 )/ (83 - 96 ) (88% - 99% ) Pain reported at 05/06 11:17: 0 = None ---- Intake and Output ----- [facility] May 06, 2020 2:00 [id number] May 05, 2020 10:00 [id number] The Intake and Output Totals for the last 24 hours are: IntakeOutputNet [id number] T PRBPSpO2 Value36.99175238/8498% Date/Time05/06 13: 13: 13: 13: 13:40 Range(36.5C - 36.7C ) (71 - 82 ) (18 - 18 ) (132 - 162 )/ (83 - 96 ) (88% - 99% ) Pain reported at 05/06 11:17: 0 = None ---- Intake and Output ----- [facility] May 06, 2020 2:00 [id number] May 05, 2020 10:00 [id number] The Intake and Output Totals for the last 24 hours are: IntakeOutputNet [id number] ---Intake--- Enteral - Oral PO Fluid/Feed (oral): [...] laboratory results: Basic Metabolic Panel Trending View [id number] 05:38:00 05-May-2020 05:34:00 Lab Comment:Called- RB to [place], 05/06/2020 06:54 Called- RB to Catherine Marroquin, 05/05/2020 06:47 Glucose, Zbynj977 H 98 NA141 139 K2.9 LL 2.9 LL CL100 100 Bicarbonate, Serum32 31 Anion Gap, Serum12 11 BUN62 H 72 H CREAT2.15 H 2.28 H GFR-Non Ixpjtffy61 A 21 A GFR- Faekyyhv02 A 25 A Calcium, Serum9.0 9.1 Magnesium, [...] Updated: 06-May-2020 16:21 by Alvin Sawyer) Normal [facility] ([place], [place]) Discharge Arhfyqz5gq 021 Discharge Profile2 Discharge Orders: Anticipated Discharge Date: Anticipated Discharge [id number] DNAR: DNAR Status: DNAR Was Extending the DNAR Status Following Discharge Discussed w/ Patient/Family: yes What was the Result of the Discussion: patient wishes to have DNAR extended [place] DNR State Form Complete: yes [place] DNR State Form Status: DNR Comfort Care [...] Physician/Dept/Jocelin Gregory MD / [facility]inology [facility] Scheduled Date/[id number]-Vli-2882 15:00 [address] [place] [address] CommentsPlease wear a mask when entering the building. Please bring discharge papers, a list of all medications, insurance card photo id. Please call the office if unable to keep this appointment. Electronic Signatures: Bernardino Valentino (PT ACC REP) (Signed 06-May-2020 13:18) Authored: Discharge Orders, Appointments, Gold Form - Pipe Fitter Helper Summary Baldo South) (Signed 08-May-2020 15:33) Authored: Discharge Orders, Hospital Course (Home Care/Gold Form), Gold Form Orders, Provider FINAL REVIEW of Orders Last Updated: 08-May-2020 15:33 by Baldo South) Normal [facility] ([place], [place]) EMR ADDONon 05-06-2020 ADDON CONFIRMATION REQUEST REC'D Normal [facility] ([place], [place]) Comment on above: Performed By: #### C MP #### [facility] [address] [place], [place] [id number] MAGNESIUMon 05-06-2020 Magnesium [Mass/Vol] 1.80 mg/dL Normal 1.60 - 2.40 [facility] ([place], [place]) Comment on above: Performed By: #### C A #### [address] [id number] VITAMIN D 1,25-DIHYDROXYon 0 05-06-2020 VITAMIN D 1,25-DIHYDROXY 34.3 pg/mL Normal 19.9-79.3 [facility] ([place], [place]) Comment on above: Result Comment: INTE RPRETIVE INFORMATION: Vitamin D, 1,25-Dihydroxy This test is primarily indicated during patient evaluation for hypercalcemia and renal failure. A normal result does not rule out Vitamin D deficiency. The recommended test for diagnosing Vitamin D deficiency is Vitamin D 25-hydroxy. Performed By: [facility] [address] [place] [address] Zone Manager: Eliza Fuller MD Performed By: #### V TDDI #### [facility] [address] [place] [address] BASIC METABOLIC PANELon 04-20 Anion gap [Moles/Vol] 11 mmol/L Normal 10 - 20 [facility] ([place], [place]) Comment on above: Order Comment: TEST CALCIUM WAS CANCELLED, 05/02/2020 12:20 added per RN 05/02/2020 12:20. Performed By: #### C A #### [address] [id number] Calcium [Mass/Vol] 9.1 mg/dL Normal 8.6 - 10.3 [facility] Comment on above: Order Comment: TEST CALCIUM WAS CANCELLED, 05/02/2020 12:20 added per RN 05/02/2020 12:20. Performed By: #### C A #### [address] [id number] Chloride [Moles/Vol] 100 mmol/L Normal 98 - 107 [facility] Comment on above: Order Comment: TEST CALCIUM WAS CANCELLED, 05/02/2020 12:20 added per RN 05/02/2020 12:20. Performed By: #### C A #### [address] [id number] Creatinine [Mass/Vol] 2.28 mg/dL High 0.50 - 1.05 [facility] ([place], [place]) Comment on above: Order Comment: TEST CALCIUM WAS CANCELLED, 05/02/2020 12:20 added per RN 05/02/2020 12:20. Performed By: #### C A #### [address] [id number] GFR- AM. 25 mL/min/1.73m2 Abnormal >60 [facility] ([place], [place]) Comment on above: Order Comment: TEST CALCIUM WAS CANCELLED, 05/02/2020 12:20 added per RN 05/02/2020 12:20. Result Comment: CALC ULATIONS OF ESTIMATED GFR ARE PERFORMED USING THE MDRD STUDY EQUATION FOR THE IDMS-TRACEABLE CREATININE METHODS. CLIN CHEM 2007;53:766-72 Performed By: #### C A #### [address] [id number] GFR-NON AM. 21 mL/min/1.73m2 Abnormal >60 [facility] ([place], [place]) Comment on above: Order Comment: TEST CALCIUM WAS CANCELLED, 05/02/2020 12:20 added per RN 05/02/2020 12:20. Performed By: #### C A #### [address] [id number] Glucose [Mass/Vol] 98 mg/dL Normal 74 - 99 [facility] Comment on above: Order Comment: TEST CALCIUM WAS CANCELLED, 05/02/2020 12:20 added per RN 05/02/2020 12:20. Performed By: #### C A #### [address] [phone] HCO3 (Bld) [Moles/Vol] 31 mmol/L Normal 21 - 32 [facility] ([place], [place]) Comment on above: Order Comment: TEST CALCIUM WAS CANCELLED, 05/02/2020 12:20 added per RN 05/02/2020 12:20. Performed By: #### C A #### [address] [id number] Potassium [Moles/Vol] 2.9 mmol/L Critically low 3.5 - 5.3 [facility] ([place], [place]) Comment on above: Order Comment: TEST CALCIUM WAS CANCELLED, 05/02/2020 12:20 added per RN 05/02/2020 12:20. Result Comment: Call ed- RB to Catherine Marorquin, 05/05/2020 06:47 Performed By: #### C A #### [address] [id number] Sodium [Moles/Vol] 139 mmol/L Normal 136 - 145 [facility] Comment on above: Order Comment: TEST CALCIUM WAS CANCELLED, 05/02/2020 12:20 added per RN 05/02/2020 12:20. Performed By: #### C A #### [address] [id number] Urea nitrogen [Mass/Vol] 72 mg/dL High 6 - 23 [facility] ([place], [place]) Comment on above: Order Comment: TEST CALCIUM WAS CANCELLED, 05/02/2020 12:20 added per RN 05/02/2020 12:20. Performed By: #### C A #### [address] [id number] CBCon 05-05-2020 Erythrocyte distribution width (RBC) [Ratio] 15.6 % High 11.5 - 14.5 [facility] ([place], [place]) Comment on above: Performed By: #### C BC ####[facility] [place], [place] [phone] Hematocrit (Bld) [Volume fraction] 30.6 % Low 36.0 - 46.0 [facility] ([place], [place]) Comment on above: Performed By: #### C BC ####[facility] [place] [address] [id number] Hemoglobin (Bld) [Mass/Vol] 10.2 g/dL Low 12.0 - 16.0 [facility] ([place], [place]) Comment on above: Performed By: #### C BC ####[facility] [place] [address] [phone] MCHC (RBC) [Mass/Vol] 33.3 g/dL Normal 32.0 - 36.0 [facility] ([place], [place]) Comment on above: Performed By: #### C BC ####[address] [place], [place] [phone] MCV (RBC) [Entitic vol] 89 fL Normal 80 - 100 [facility] ([place], [place]) Comment on above: Performed By: #### C BC ####[facility] [place], [place] [phone] Platelets (Bld) [#/Vol] 323 10*3/uL Normal 150 - 450 [facility] ([place], [place]) Comment on above: Performed By: #### C BC ####[address] [place], [place] [phone] RBC (Bld) [#/Vol] 3.43 x10E12/L Low 4.00 - 5.20 [facility] ([place], [place]) Comment on above: Performed By: #### C BC ####[address] [place], [place] [phone] WBC (Bld) [#/Vol] 19.9 10*3/uL High 4.4 - 11.3 [facility] Comment on above: Performed By: #### C BC ####[address] [place], [place] [phone] Consult-Orthopaedicson 05-05 Consult-Orthopaedics Service: Service: Orthopaedics History [...] will be reviewed by Dr. Glynn our installation specialist. The patient is anticoagulated with Coumadin. [...] Last Updated: 05-May-2020 18:14 by Javier Hathaway) [facility] Daily Progress Note-Endocrin christianeyon 05-05-2020 Daily Progress Note-Endocrinology Service: Endocrinology Subjective Data: LINDA PERALTA is a 75 year old Female who is Hospital Day # 4. Additional Information: Doing well she feels she has improved c/o lot of weakness all over Objective Data: Objective Information: T PRBPSpO2 Value36.790156/8395% Date/Time05/05 19: 19: 19: 19:19 Range(36.2C - 36.5C ) (73 - 83 ) (136 - 148 )/ (82 - 88 ) (94% - 98% ) Pain reported at 05/05 9:49: 0 = None ---- Intake and Output ----- Mn/Dy/Year TimeIntakeOutputNet May 05, 2020 2:00 [id number] May 05, 2020 6:00 [id number] May 04, 2020 10:00 [id number] The Intake and Output Totals for the last 24 hours are: IntakeOutputNet [id number] Physical Exam by System: Constitutional: Well developed, [...] Serum 31.6 Basic Metabolic Panel Trending View [id number] 05:34:00 04-May-2020 05:26:00 Lab Comment:Called- RB to Catherine Cara, 05/05/2020 06:47 Glucose, Serum98 90 NA139 137 K2.9 LL 3.6 CL100 101 Bicarbonate, Serum31 27 Anion Gap, Serum11 13 BUN72 H 79 H CREAT2.28 H 2.39 H GFR-Non Lsgsujse64 A 20 A GFR- Wmtqrtvy15 A 24 A Calcium, Serum9.1 9.8 Uric [...] Updated: 05-May-2020 21:57 by Alexander Gregory) Normal [facility] ([place], [place]) Daily Progress Note-General Internal Medicineon 05-05-2020 Daily [...] negative. Objective Data: Objective Information: T PRBPSpO2 Value36.32654670/8398% Date/Time05/05 7: 7: 14:393/16 7:223 7:22 Range(36.2C - 36.3C ) (75 - 83 ) (18 - 18 ) (135 - 148 )/ (83 - 88 ) (93% - 98% ) Pain reported at 05/05 9:49: 0 = None ---- Intake and Output ----- Mn/Dy/Year TimeIntakeOutCarolinas [facility] May 05, 2020 2:00 [id number] May 05, 2020 6:00 [id number] May 04, 2020 10:00 [id number] The Intake and Output Totals for the last 24 hours are: IntakeOutputNet [id number] Physical Exam by System: Constitutional: Well developed, [...] Last Updated: 05-May-2020 14:08 by Baldo South) [facility] Daily Progress Note-Infectio us Diseaseon 05-05-2020 Daily Progress Note-Infectious Disease Service: Infectious Disease History of Present Illness: History Present Illness: HPI: Possible aspiration pneumonia Recent UTI with Citrobacter No fevers chills sweats minimal cold Subjective Data: LINDA PERALTA is a 75 year old Female who is Hospital Day # 4. Objective Data: Objective Information: T PRBPSpO2 Value36.54080275/8398% Date/Time05/05 7: 7: 14: 7: 7:22 Range(36.2C - 36.3C ) (75 - 83 ) (18 - 18 ) (135 - 148 )/ (83 - 88 ) (93% - 98% ) Pain reported at 05/05 9:49: 0 = None ---- Intake and Output ----- Mn/Dy/Year TimeIntakeOutputNet May 05, 2020 6:00 [id number] May 04, 2020 10:00 [id number] May 04, 2020 2:00 [id number] The Intake and Output Totals for the last 24 hours are: IntakeOutCarolinas [facility] [id number] T PRBPSpO2 Value36.88556466/8398% Date/Time05/05 7: 7: 14: 7: 7:22 Range(36.2C [...] laboratory results: Complete Blood Count Trending View [id number] 05:35:00 04-May-2020 05:26:00 White Blood Cell Count19.9 H 22.3 H Red Blood Cell Count3.43 L 3.82 L HGB10.2 L 11.2 L HCT30.6 L 34.4 L MCV89 90 MCHC33.3 32.6 JWR096 382 RDW-CV15.6 H 15.9 H Parathormone Intact, Serum 05-May-2020 05:35:00 ResultValue Parathormone Intact, Serum 31.6 Basic Metabolic Panel Trending View [id number] 05:34:00 04-May-2020 05:26:00 Lab Comment:Called- RB to Catherine Marroquin, 05/05/2020 06:47 Glucose, Serum98 90 NA139 137 K2.9 LL 3.6 CL100 101 Bicarbonate, Serum31 27 Anion Gap, Serum11 13 BUN72 H 79 H CREAT2.28 H 2.39 H GFR-Non Sjogikpz78 A 20 A GFR- Kposfpvc95 A 24 A Calcium, Serum9.1 9.8 PT + INR, Plasma Trending View [id number] 05:34:00 04-May-2020 05:26:00 Prothrombin Time, Coifud59.6 H 27.5 H International Normalized Ratio, Plasma2.0 [...] RA Area A4C: 16.4 cm2 RA [place] A4C: 5.0 cm M-MODE MEASUREMENTS: Normal Ranges: [...] 1.2 m/s (0.6-0.9m/s) PV Max P.2 mmHg [id number] Tremayne Mcleod MD Electronically signed on 05/02/2020 [...] Updated: 05-May-2020 12:21 by Alberto Allred) Normal [facility] ([place], [place]) Daily Progress Note-Nephrolo gyon 05-05-2020 Daily Progress Note-Nephrology Service: Nephrology Subjective Data: LINDA PERALTA is a 75 year old Female who is Hospital Day # 4. renal function stable, Ca wnl, uric acid better, off fluids. 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 1. ANGELA on CKD: previously hypotensive at [place], now hypertensive, also CRS as pt is [...] Last Updated: 05-May-2020 14:00 by Leigh Billy) [facility] Daily Progress Note-Neurolog yon 05-05-2020 Daily [...] better. Objective Data: Objective Information: T PRBPSpO2 Value36.057049/8295% Date/Time05/05 14: 14: 14: 14:30 Range(36.2C - 36.3C ) (73 - 83 ) (135 - 148 )/ (82 - 88 ) (94% - 98% ) Pain reported at 05/05 9:49: 0 = None ---- Intake and Output ----- Mn/Dy/Year TimeIntakeOutCarolinas [facility] May 05, 2020 2:00 [id number] May 05, 2020 6:00 [id number] May 04, 2020 10:00 [id number] The Intake and Output Totals for the last 24 hours are: IntakeOutputNet [id number] Physical Exam by System: Neurological: The patient [...] Updated: 05-May-2020 19:20 by Vicky Boyd) Normal [facility] ([place], [place]) Daily Progress Note-Urologyo n 05-05-2020 Daily Progress [...] below. Objective Data: Objective Information: T PRBPSpO2 Value36.67193528/8398% Date/Time05/05 7: 7: 14: 7: 7:22 Range(36.2C - 36.3C ) (75 - 83 ) (18 - 18 ) (135 - 148 )/ (83 - 88 ) (93% - 98% ) Pain reported at 05/05 9:49: 0 = None ---- Intake and Output ----- Mn/Dy/Year TimeIntakeOutCarolin[facility] May 05, 2020 6:00 [id number] May 04, 2020 10:00 [id number] May 04, 2020 2:00 [id number] The Intake and Output Totals for the last 24 hours are: IntakeOutputNet [id number] T PRBPSpO2 Value36.18283264/8398% Date/Time05/05 7: 7: 14: 7: 7:22 Range(36.2C - 36.3C ) (75 - 83 ) (18 - 18 ) (135 - 148 )/ (83 - 88 ) (93% - 98% ) Pain reported at 05/05 9:49: 0 = None ---- Intake and Output ----- Mn/Dy/Year TimeIntakeOutputNet May 05, 2020 6:00 [id number] May 04, 2020 10:00 [id number] May 04, 2020 2:00 [id number] The Intake and Output Totals for the last 24 hours are: IntakeOutputNet [id number] ---Intake--- Enteral - Oral PO Fluid/Feed (oral): [...] laboratory results: Complete Blood Count Trending View [id number]-[id number] 05:35:00 04-May-2020 05:26:00 White Blood Cell Count19.9 H 22.3 H Red Blood Cell Count3.43 L 3.82 L HGB10.2 L 11.2 L HCT30.6 L 34.4 L MCV89 90 MCHC33.3 32.6 PAS323 382 RDW-CV15.6 H 15.9 H Parathormone Intact, Serum 05-May-2020 05:35:00 ResultValue Parathormone Intact, Serum 31.6 Basic Metabolic Panel Trending View [id number] 05:34:00 04-May-2020 05:26:00 Lab Comment:Called- RB to Catherine Marroquin, 05/05/2020 06:47 Glucose, Serum98 90 NA139 137 K2.9 LL 3.6 CL100 101 Bicarbonate, Serum31 27 Anion Gap, Serum11 13 BUN72 H 79 H CREAT2.28 H 2.39 H GFR-Non Tdlikgap05 A 20 A GFR- Cimjshbp99 A 24 A Calcium, Serum9.1 9.8 PT [...] RA Area A4C: 16.4 cm2 RA [place] A4C: 5.0 cm M-MODE MEASUREMENTS: Normal Ranges: [...] 1.2 m/s (0.6-0.9m/s) PV Max P.2 mmHg [id number] Tremayne Mcleod MD Electronically signed on 05/02/2020 [...] Updated: 05-May-2020 13:22 by Alvin Sawyer) Normal [facility] ([place], [place]) CHELA PATH REVIEWon 05-05-2020 PATH REVIEW-CHELA NNEKA Normal [facility] Comment on above: Result Comment: By h er/his signature above, the Pathologist listed as making the final interpretation certifies that she/he has personally reviewed this case. Performed By: #### P R12 #### [facility] [address] [place] [address] PARATHYROID HORMONE,INTACTon 05-05-2020 PARATHYROID HORMONE,INTACT 31.6 pg/mL Normal 12.0 - 88.0 [facility] ([place], [place]) Comment on above: Performed By: #### P TH ####[address] [place], [place] [id number] PHOSPHORUSon 05-05-2020 Phosphate [Mass/Vol] 4.8 mg/dL Normal 2.5 - 4.9 [facility] Comment on above: Result Comment: The performance characteristics of phosphorus testing in heparinized plasma have been validated by the individual laboratory site where testing is performed. Testing on heparinized plasma is not approved by the FDA; however, such approval is not necessary. Performed By: #### P HOS ####[address] [place], [place] [id number] PROTEIN ELECTROPHORESIS + IM MUNOFIXATION, SERUMon 05-05-2020 IMMUNOFIXATION INTERP NORMAL Normal [facility] ([place], [place]) Comment on above: Result Comment: No m onoclonal proteins detected by immunofixation. Performed By: #### I FE2 ####[id number] [place] [address] INTERPRETATION SEE COMMENT Normal [facility] ([place], [place]) Comment on above: Result Comment: REFL EXED TO IMMUNOFIXATION ELECTROPHORESIS Hypoalbuminemia. Performed By: #### I FE2 ####[id number] [place] [address] MONOCLONAL PROTEIN NONE DETECTED Normal [facility] ([place], [place]) Comment on above: Performed By: #### I FE2 ####[address] [id number] [place] [address] PT/INRon 05-05-2020 INR Coag (PPP) [Relative time] 2.0 {INR} High 0.9 - 1.1 [facility] ([place], [place]) Comment on above: Performed By: #### P TINR ####[address] [id number] PT Coag (PPP) [Time] 23.6 s High 10.1 - 13.3 [facility] ([place], [place]) Comment on above: Performed By: #### P TINR ####[address] [id number] SPE PATH REVIEWon 05-05-2020 PATH REVIEW-ARMIDA EARLY Normal [facility] Comment on above: Result Comment: By h er/his signature above, the Pathologist listed as making the final interpretation certifies that she/he has personally reviewed this case. Performed By: #### P R12 #### [facility] [address] [place] [address] Swallow Evaluation v2-Bedsid e Clinical Swallow, Daquan 05-05-2020 Swallow Evaluation v2-Bedside Clinical Swallow, UPKEEP MECHANIC Rehab: Info: Time IN12:00 Time OUT12:15 Total Treatment Ciavqzp22 Evaluation TypeBedside Clinical Swallow, UPKEEP MECHANIC Patient Effortgood Patient Profile Reviewedyes Reason for ReferralDysphagia Referring PhysicianTamesis General Observations of PatientPatient was seen for a bedside swallow evaluation this date. Patient was awake, alert, and cooperative. Pertinent History of Current [facility] for [facility]ocrinology [...] Met (Swallow Eval)yes; treatment indicated Therapy Frequency (UPKEEP MECHANIC)3-5x/wk Expected Duration Therapy Rdfkwge20 minutes UPKEEP MECHANIC Diet Recommendations (Swallow Eval)REGULAR WITH THIN LIQUIDS Recommended Feeding/Eating Techniques (Swallow Eval)alternate between small bites and sips of food/liquid& double/multiple swallows& feed upright in 90 degree position& small sips/bites& slow rate Monitor for Signs of Aspiration (Swallow Eval)cough; gurgly voice; throat clearing; fever; upper respiratory infection; pneumonia Short Term Goals: Dysphagia/Swallow: Established [id number]-[id number]-3668 Dysphagia/Swallow: Goal Details1. Patient will tolerate highest [...] evaluation. This documentation was completed using the [employer] Dictation system. There may be spelling and/or grammatical errors that were not corrected prior to final submission. Electronic Signatures: Jayme Keys (UPKEEP MECHANIC) (Signed 05-May-2020 13:38) Authored: Info, Impression, Short Term Goals, Education Last Updated: 05-May-2020 13:38 by Jayme Keys (UPKEEP MECHANIC) Normal [facility] ([place], [place]) URIC ACIDon 05-05-2020 Urate [Mass/Vol] 9.7 mg/dL High 2.3 - 6.7 [facility] Comment on above: Result Comment: Nadia puncture immediately after or during the administration of Metamizole may lead to falsely low results. Testing should be performed immediately prior to Metamizole dosing. Performed By: #### C MP #### [address] [id number] BASIC METABOLIC PANELon 04-20 Anion gap [Moles/Vol] 13 mmol/L Normal 10 - 20 [facility] ([place], [place]) Comment on above: Performed By: #### C MP #### [address] [id number] Calcium [Mass/Vol] 9.8 mg/dL Normal 8.6 - 10.3 [facility] Comment on above: Performed By: #### C MP #### [address] [id number] Chloride [Moles/Vol] 101 mmol/L Normal 98 - 107 [facility] Comment on above: Performed By: #### C MP #### [address] [id number] Creatinine [Mass/Vol] 2.39 mg/dL High 0.50 - 1.05 [facility] ([place], [place]) Comment on above: Performed By: #### C MP #### [address] [id number] GFR- AM. 24 mL/min/1.73m2 Abnormal >60 [facility] ([place], [place]) Comment on above: Result Comment: CALC ULATIONS OF ESTIMATED GFR ARE PERFORMED USING THE MDRD STUDY EQUATION FOR THE IDMS-TRACEABLE CREATININE METHODS. CLIN CHEM 2007;53:766-72 Performed By: #### C MP #### [address] [id number] GFR-NON AM. 20 mL/min/1.73m2 Abnormal >60 [facility] ([place], [place]) Comment on above: Performed By: #### C MP #### [address] [id number] Glucose [Mass/Vol] 90 mg/dL Normal 74 - 99 [facility] Comment on above: Performed By: #### C MP #### [address] [id number] HCO3 (Bld) [Moles/Vol] 27 mmol/L Normal 21 - 32 [facility] ([place], [place]) Comment on above: Performed By: #### C MP #### [address] [id number] Potassium [Moles/Vol] 3.6 mmol/L Normal 3.5 - 5.3 [facility] ([place], [place]) Comment on above: Performed By: #### C MP #### [address] [id number] Sodium [Moles/Vol] 137 mmol/L Normal 136 - 145 [facility] Comment on above: Performed By: #### C MP #### [address] [id number] Urea nitrogen [Mass/Vol] 79 mg/dL High 6 - 23 [facility] ([place], [place]) Comment on above: Performed By: #### C MP #### [address] [id number] CBCon 05-04-2020 Erythrocyte distribution width (RBC) [Ratio] 15.9 % High 11.5 - 14.5 [facility] ([place], [place]) Comment on above: Performed By: #### P R12 #### [facility] [address] [place] [address] Hematocrit (Bld) [Volume fraction] 34.4 % Low 36.0 - 46.0 [facility] ([place], [place]) Comment on above: Performed By: #### P R12 #### [facility] [address] [place] [address] Hemoglobin (Bld) [Mass/Vol] 11.2 g/dL Low 12.0 - 16.0 [facility] ([place], [place]) Comment on above: Performed By: #### P R12 #### [facility] [address] [place] [address] MCHC (RBC) [Mass/Vol] 32.6 g/dL Normal 32.0 - 36.0 [facility] ([place], [place]) Comment on above: Performed By: #### P R12 #### [facility] [address] [place] [address] MCV (RBC) [Entitic vol] 90 fL Normal 80 - 100 [facility] ([place], [place]) Comment on above: Performed By: #### P R12 #### [facility] [address] [place] [address] Platelets (Bld) [#/Vol] 382 10*3/uL Normal 150 - 450 [facility] ([place], [place]) Comment on above: Performed By: #### P R12 #### [facility] [address] [place] [address] RBC (Bld) [#/Vol] 3.82 x10E12/L Low 4.00 - 5.20 [facility] ([place], [place]) Comment on above: Performed By: #### P R12 #### [facility] [address] [place] [address] WBC (Bld) [#/Vol] 22.3 10*3/uL High 4.4 - 11.3 [facility] Comment on above: Performed By: #### P R12 #### [facility] [address] [place] [address] CREATINE KINASEon 05-04-2020 CK [Catalytic activity/Vol] 51 U/L Normal 0 - 215 [facility] ([place], [place]) Comment on above: Performed By: #### C BC #### [facility] [address] [place], [place] [id number] Consult-Endocrinologyon 04-20 Consult-Endocrinology Service: Service: Endocrinology Consult: [...] penicillins: Rash Objective: Objective Information: T PRBPSpO2 Value36.81902348/9097% Date/Time05/04 8: 8: 8: 8: 8:26 Range(36.2C [...] laboratory results: Complete Blood Count Trending View [id number] 05:26:00 03-May-2020 05:31:00 White Blood Cell Count22.3 H 22.9 H Red Blood Cell Count3.82 L 3.81 L HGB11.2 L 11.1 L HCT34.4 L 33.8 L MCV90 89 MCHC32.6 32.8 LAN498 405 RDW-CV15.9 H 16.0 H Basic Metabolic Panel 04-May-2020 05:26:00 ResultValue Glucose, Serum 90 NA 137 K 3.6 CL 101 Bicarbonate, Serum 27 Anion Gap, Serum 13 BUN 79 H CREAT 2.39 H GFR-Non 20 A GFR- 24 A Calcium, Serum 9.8 Urinalysis with Culture if Indicated 03-May-2020 11:12:00 ResultValue Color, Urine STRAW Reference Range: STRAW,YELLOW Appearance, Urine CLEAR Specific Carey, Urine 1.008 pH, Urine 6.0 Protein, Urine [...] Lactate, Level 1.8 Culture, Blood Trending View [id number]-Uhu-5991 10:49:00 03-May-2020 10:48:00 Culture, BloodNEGATIVE TO DATE, CULTURE IN PROGRESS. NEGATIVE TO DATE, CULTURE IN PROGRESS. Comprehensive Metabolic Panel Trending View [id number]-Kei-[id number] 05:31:00 02-May-2020 02:22:00 Glucose, Serum93 184 H NA138 138 K3.3 L 4.2 CL101 101 Bicarbonate, Serum26 26 Anion Gap, Serum14 15 BUN86 H 84 H CREAT2.39 H 2.31 H GFR-Non Zhrilnim90 A 20 A GFR- Nihfirsv97 A 24 A Calcium, Serum10.8 H 12.3 [...] 2020 4:41PM] Consult Status: Consult Order ID: [id number] Problem/Assessment/Plan: Impression 1: Hypercalcemia and CKD ANGELA [...] Updated: 26-May-2020 16:04 by Alexander Gregory) Normal [facility] ([place], [place]) Consult-Urologyon 05-04-2020 Consult-Urology Service: Service: Urology Consult: [...] penicillins: Rash Objective: Objective Information: T PRBPSpO2 Value36.38838234/8593% Date/Time05/04 14: 14: 14: 14: 14:39 Range(36.2C - 36.7C ) (71 - 93 ) (16 - 18 ) (139 - 156 )/ (85 - 92 ) (92% - 97% ) Pain reported at 05/04 8:26: 0 = None ---- Intake and Output ----- Mn/Dy/Year TimeIntakeOutCarolinas [facility] May 04, 2020 2:00 [id number] May 04, 2020 6:00 [id number] May 03, 2020 10:00 [id number] The Intake and Output Totals for the last 24 hours [facility]: [facility] [id number] ---Intake--- IV Fluids Infusion: 1200 mL Infusion: [...] results: PT + INR, Plasma Trending View [id number]-[id number] 05:26:00 03-May-2020 10:50:00 Prothrombin Time, Poplmc43.5 H 33.4 H International Normalized Ratio, Plasma2.3 [...] Reference Range: STRAW,YELLOW Appearance, Urine CLEAR Specific Carey, Urine 1.008 pH, Urine 6.0 Protein, Urine [...] RA Area A4C: 16.4 cm2 RA [place] A4C: 5.0 cm M-MODE MEASUREMENTS: Normal Ranges: [...] Accel Time: 95 msec (>120ms) PV Max Tegna: 1.2 m/s (0.6-0.9m/s) PV Max P.2 mmHg [id number] Tremayne Mcleod MD Electronically signed on 05/02/2020 at 1:08:29 PM Final Echocardiogram [May 02 2020 1:08PM] Impression: No evidence of hydronephrosis. Nonobstructing calculus at the upper pole. Complex cyst with calcification given hypodensity at the level of the renal hilum for which nonemergent CT would be recommended for further evaluation. Ultrasound Renal Bilateral [May 02 2020 12:57PM] Consult Status: Consult Order ID: [id number] Problem List: Admitting Dx: Hypercalcemia: Additional Dx: Change in mental status: Onset Date: 04-May-2020 Electronic Signatures: Alvin Sawyer) (Signed 04-May-2020 17:33) Authored: Service, History of Present Illness, Allergies, Objective, Assessment/Recommendatio ns, Note Completion Last Updated: 04-May-2020 17:33 by Alvin Sawyer) Normal [facility] ([place], [place]) Daily Progress Note-Infectio us Diseaseon 05-04-2020 Daily [...] 3. Objective Data: Objective Information: T PRBPSpO2 Value36.24869420/8593% Date/Time05/04 14: 14: 14: 14: 14:39 Range(36.2C - 36.3C ) (71 - 93 ) (18 - 18 ) (139 - 156 )/ (85 - 90 ) (92% - 97% ) Pain reported at 05/04 8:26: 0 = None ---- Intake and Output ----- Mn/Dy/Year TimeIntakeOutputNet May 04, 2020 2:00 [id number] May 04, 2020 6:00 [id number] May 03, 2020 10:00 [id number] The Intake and Output Totals for the last 24 hours are: IntakeOutputNet [id number] Recent Lab Results: Results: CBC: 05/04/2020 05:26 [...] Updated: 04-May-2020 19:38 by Di Estrada) Normal [facility] ([place], [place]) Daily Progress Note-Medicine on 05-04-2020 Daily Progress Note-Medicine Service: Medicine Subjective Data: LINDA PERALTA is a 75 year old Female who is Hospital Day # 3. Patient was laying in bed overall feeling little bit better but still has bilateral leg weakness developed urinary retention has a Jarrell catheter denies any chest pain no abdominal pain. Objective Data: Objective Information: T PRBPSpO2 Value36.88190394/9097% Date/Time05/04 8: 8: 8: 8: 8:26 Range(36.2C - 36.9C ) (71 - 93 ) (16 - 18 ) (139 - 162 )/ (89 - 95 ) (92% - 97% ) Highest temp of 36.9 C was recorded at 05/03 14:24 Pain reported at 05/04 8:26: 0 = None ---- Intake and Output ----- Mn/Dy/Year TimeIntakeOutCarolinas [facility] May 04, 2020 6:00 [id number] May 03, 2020 10:00 [id number] May 03, 2020 2:00 [id number] The Intake and Output Totals for the last 24 hours are: IntakeOutputNet [id number] Physical Exam by System: Constitutional: Well developed, [...] Last Updated: 04-May-2020 12:20 by Nani Stanley) [facility] Daily Progress Note-Nephrolo gyon 05-04-2020 Daily Progress Note-Nephrology Service: Nephrology Subjective Data: LINDA PERALTA is a 75 year old Female who is Hospital Day # 3. renal function stable, remains on fluids, appetite decent but doesn't like the food, feeling better. Objective Data: Objective Information: T PRBPSpO2 Value36.30500380/8593% Date/Time05/04 14: 14: 14: 14: 14:39 Range(36.2C - 36.7C ) (71 - 93 ) (16 - 18 ) (139 - 156 )/ (85 - 92 ) (92% - 97% ) Pain reported at 05/04 8:26: 0 = None ---- Intake and Output ----- Mn/Dy/Year TimeIntakeOutputNet May 04, 2020 2:00 [id number] May 04, 2020 6:00 [id number] May 03, 2020 10:00 [id number] The Intake and Output Totals for the last 24 hours are: IntakeOutputNet [id number]\ Constitutional: Alert, in no acute distress HEENT: [...] partial nephrectomy, DVT/PE who was initially at [place] for AMS, hypercalcemia and hypotension now transferred here. 1. ANGELA on CKD: previously hypotensive at [place], now hypertensive, also CRS as pt is [...] Last Updated: 04-May-2020 15:19 by Leigh Billy) [facility] Daily Progress Note-Neurolog yon 05-04-2020 Daily [...] better. Objective Data: Objective Information: T PRBPSpO2 Value36.74896570/8593% Date/Time05/04 14: 14: 14: 14: 14:39 Range(36.2C - 36.7C ) (71 - 93 ) (16 - 18 ) (139 - 156 )/ (85 - 92 ) (92% - 97% ) Pain reported at 05/04 8:26: 0 = None ---- Intake and Output ----- Mn/Dy/Year TimeIntakeOutCarolinas [facility] May 04, 2020 2:00 [id number] May 04, 2020 6:00 [id number] May 03, 2020 10:00 [id number] The Intake and Output Totals for the last 24 hours are: IntakeOutputNet [id number] Physical Exam by System: Neurological: The patient [...] Updated: 04-May-2020 16:25 by Vicky Boyd) Normal [facility] ([place], [place]) Discharge Planning [id number] 0 05-04-2020 Discharge Planning Note2 Discharge Planning: Planned Dispositionskilled/rehab /extended care [facility] [place] of Choice Explainedyes Visit Tranportation Needed from [place] (Adult Med/Surg) Is the Patient Being Discharged on an Opioidno Anticipated Discharge [id number]-[id number]-7565 Discharge Planning 05/04/2020 1229 TCC PATIENT WAS TRANSFERRED FROM [facility] TO [facility] ON MAY 01. PER DR. STANLEY, PATIENT WAS AT [facility] FOR 9 DAYS BEFORE SHE TRANSFERRED TO [facility]. PATIENT'S DX: HYPERCALCEMIA, CHANGED MENTAL STATUS, ANGELA, PNEUMONIA, URINARY RETENTION AND LEUKOCYSTOSIS. PT HAS BEEN ORDERED TO EVALUATE. I MET WITH THE PATIENT WHO STATES SHE LIVES WITH HER . AICHA, THE RN CARING FOR THE PATIENT, STATES THAT THE IS IN [facility] AND HAS CA WITH METS. THE PATIENT STATES SHE IS INDEPENDENT WITH ADLS. THE PATIENT CAN COOK, BUT HER DAUGHTER DOES THE CLEANING AND LAUNDRY. PATIENT DOES HAVE A WALKER. DAUGHTER WILL TAKE TO MD APPOINTMENTS. THE PATIENT STATES THAT SHE HAS HHC WITH [facility] AND HER PREFERENCE IS TO DC HOME AND CONTINUE SERVICES WITH [facility]. OLY, THE PCN, IS AWARE. [facility] WILL CONTINUE TO FOLLOW. TALIA JAMES RN 05/04/20 2:43 pcn- Notified by TCC-talia that patient was previously active with [facility]. Provided home care list to [facility] directory that includes agencies that are within [facility], patients insurance, meets patients medical needs, and in discharge zip code that patient prefers, and identifies each agencies [facility] star rating. Resumption of care referral submitted to [facility] and is currently under review. will await final d/c orders. SHANE Romero 05/05/2020 0950 TCC PT/OT STILL NEEDS TO EVALUATE PATIENT. AICHA, THE RN CARING FOR THE PATIENT, STATES THAT THE WAS TO DC YESTERDAY OR TODAY FROM [facility] PER THE DAUGHTER. SHE IS HELPING CARE FOR HIM AND PLANS TO BE THERE WHEN THE MOM DC. AICHA IS AWARE I WILL TALK WITH THE DAUGHTER AND PATIENT AGAIN ONCE PT/OT EVALUTES. DR. SOUTH IS AWARE THAT PATIENT IS ACTIVE WITH [facility] AND AT THIS TIME, DC PLAN IS HOME WITH CONTINUED SERVICES WITH [facility]. AICHA ALSO INFORMED ME THAT PATIENT'S POTASSIUM WAS 2.9 TODAY AND PO SUPPLEMENTS ARE BEING GIVEN. PATIENT STILL HAS EDEMA FROM [place]. PATIENT IS ON IV LASIX WELL. [facility] WILL CONTINUE TO FOLLOW. TALIA JAMES RN 05/05/2020 1523 TCC PT [facility] IS 11. I WENT TO REVISIT PATIENT AND SHE IS SLEEPING. I CALLED THE DAUGHTER AND POA, SOULEYMANE SYEDRUFF. SOULEYMANE STATES THAT HER DAD IS STILL IN [facility] AND IS NOT BEING DC TODAY AND MAY BE THERE A FEW MORE DAYS. THERAPY EVALUATE DISCUSSED WITH SOULEYMANE AND SHE STATES THAT SHE FEELS THE PATIENT NEEDS TO GO TO REHAB AT [place] UNTIL SHE IS ABLE TO BE MORE INDEPENDENT WITH MAYBE A 1 PERSON ASSIST. SHE HAS REQUESTED [facility] SHE HAS BEEN THERE BEFORE AND [address] [facility] [place]. DR. SOUTH IS AWARE OF DC PLAN. OLY, THE PCN, IS AWARE WELL AND WILL SEND TO [facility] FOR THEM TO EVALUATE TO SEE IF PATIENT IS APPROPRIATE FOR REHAB AND THEN PRECERT WILL BE NEEDED. [facility] WILL CONTINUE TO FOLLOW. TALIA JAMES RN 05/05/20 3:51 pcn- per talia-kiersten pt. will need snf setting on d/c, she has spoken to dtr. who is requesting [facility] T[facility]/snf unit as she has been there in the past, [facility] [place], referral sent via cnc to [facility]. SHANE Romero 05/05/20 4:15 pcn-spoke with admissions at [facility] who states they are full at this time and have no beds available. referral sent to dtr's second choice [facility] [place]. spoke with dtr. comer to provide update. Oly Coles, CALL CENTER CONSULTANT 05/06/2020 1351 TCC I ROUNDED WITH DR. SOUTH AND HE STATES THAT PATIENT POTASSIUM IS STILL 2.9 TODAY AND SHE IS RECEIVING POTASSIUM REPLACEMENT. DR. SOUTH IS AWARE PRECERT HAS BEEN STARTED AND HE WOULD BE MADE AWARE WHEN OBTAINED. HE STATED UNDERSTANDING AND STATES PATIENT IS A PD IN 1-2 DAYS. TALIA JAMES RN 05/07/20 12:50 pcn-[facility] [place] has received ins. precert and able to accept pt. per urology, no d/c today/voiding trial. informed facility. Oly Coles, CALL CENTER CONSULTANT 05/07/[address] SOUTH AND HE IS AWARE PRECERT HAS BEEN OBTAINED. PT NEEDS A VOIDING TRIAL AND THEN NEED FINAL OK TO DC FROM DR KIRKLAND. ROSS REICH, UPDATED, WILL CONTINUE TO FOLLOW, MADAN ALEXIS, AWARE PT MAY STILL DC TODAY. Anette MONDRAGON, RN, [facility] 05/07/[address] OVALLES AND HE WILL HOLD DC TODAY, WILL PLAN DC FOR TOMORROW HE DETERMINES VOIDING TRIAL RESULTS. MADAN ALEXIS, UPDATED. Anette MONDRAGON, RN, [facility] 05/08/20 2:05 pcn-per [facility] in [place] they have received ins. precert and able to accept pt. pt. will d/c this date to [facility] at 5:30 pm via [facility] wheelchair van. spoke with pt. and dtr. who are aware and in agreement to transport and cost of transportation. SHANE Romero Assessment: Discharge Planning Assessment [id number] Primary Contact Name and NumberSouleymane Lopez - [phone] (daughter)(1) Stated Reason for Admissionpatient states I fell. (1) Arrived Fromhospital (1) Readmission Within the Last 30 Daysno previous admission in last 30 days Lives Withspouse(1) Living Arrangementshouse(1) Equipment Currently Used at [facility] Resource/Environmental Concernsnone(1) Anticipated Transition [place] with help/services Services Anticipated at [facility] care(1) Anticipated Changes Related to Illnessnone Equipment Needed After Dischargenone [facility]ated [facility] Electronic Signatures: Anette Roy (COOR) (Signed 07-May-2020 14:36) Authored: Discharge Planning Oly Leon (PCN) (Signed 08-May-2020 14:07) Authored: Discharge Planning Emmie James (COOR) (Signed 06-May-2020 13:59) Authored: Discharge Planning, Assessment Magnus Coley (COOR) (Signed 08-May-2020 14:08) Authored: Discharge Planning, Assessment Last Updated: 08-May-2020 14:08 by Magnus Coley (COOR) References: 1. Data Referenced From Patient Profile - Adult v2 02-May-2020 00:[address] [facility] ([place], [place]) EMR ADDONon 05-04-2020 ADDON CONFIRMATION REQUEST REC'D Normal [facility] [place]) Comment on above: Performed By: #### P R12 #### [facility] [id number] [place] [address] NR MRI L-SPINE WOon 05-05-19 21 NR MRI L-SPINE WO Patient Name: LINDA PERALTA STUDY: MRI T-SPINE WO; MRI L-SPINE WO; 05/04/2020 1:26 pm INDICATION: Urinary retention bilateral leg weakness. COMPARISON: CT chest abdomen and pelvis from 05/03/2020 ACCESSION NUMBER(S): [id number]; [id number] ORDERING CLINICIAN: NANI STANLEY TECHNIQUE: Sagittal T1 [...] pelvis. Electronically signed by: BRADLEY BECERRA MD [facility] NR MRI T-SPINE WOon 05-05-19 NR MRI T-SPINE WO Patient Name: LINDA PERALTA STUDY: MRI T-SPINE WO; MRI L-SPINE WO; 05/04/2020 1:26 pm INDICATION: Urinary retention bilateral leg weakness. COMPARISON: CT chest abdomen and pelvis from 05/03/2020 ACCESSION NUMBER(S): [id number]; [id number] ORDERING CLINICIAN: NANI STANLEY TECHNIQUE: Sagittal T1 [...] Electronically signed by: BRADLEY BECERRA MD Normal [facility] ([place], [place]) PROTEIN ELECTROPHORESIS + IM MUNOFIXATION, SERUMon 05-04-2020 GAMMA GLOBULIN 0.9 g/dL Normal 0.5 - 1.4 [facility] ([place], [place]) Comment on above: Performed By: #### I FE2 ####[address] [id number] [place] [address] Albumin [Mass/Vol] 3.1 g/dL Low 3.4 - 5.0 [facility] Comment on above: Performed By: #### I FE2 ####[address] [id number] [place] [address] ALPHA 1 GLOBULIN 0.3 g/dL Normal 0.2 - 0.6 [facility] Comment on above: Performed By: #### I FE2 ####[address] [id number] [place] [address] ALPHA 2 GLOBULIN 0.6 g/dL Normal 0.4 - 1.1 [facility] Comment on above: Performed By: #### I FE2 ####[address] [id number] [place] [address] BETA GLOBULIN 0.6 g/dL Normal 0.5 - 1.2 [facility] ([place], [place]) Comment on above: Performed By: #### I FE2 ####[address] [id number] [place] [address] PT/INRon 05-04-2020 INR Coag (PPP) [Relative time] 2.3 {INR} High 0.9 - 1.1 [facility] ([place], [place]) Comment on above: Performed By: #### C MP #### [address] [id number] PT Coag (PPP) [Time] 27.5 s High 10.1 - 13.3 [facility] ([place], [place]) Comment on above: Performed By: #### C MP #### [address] [id number] BLOOD CULTURE, BACTERIALon 0 05-03-2020 BLOOD CULTURE, BACTERIAL PATIENT: LINDA PERALTA LOCATION: [address]#: [id number] : 41 AGE: SEX: F ORDERED BY: NANI STANLEY SOURCE: Blood COLLECTED: 05/03/20 10:49 ANTIBIOTICS AT [place].: RECEIVED : 05/03/20 21:14 SITE: R E S U L T S BLOOD CULTURE, BACTERIAL FINAL 05/08/20 21:42 No Growth at 1 days No Growth at 2 days No Growth at 3 days No Growth at 4 days NO GROWTH - FINAL REPORT Normal [facility] ([place], [place]) Comment on above: Performed By: #### C A #### [address] [id number] BLOOD CULTURE, BACTERIAL PATIENT: LINDA PERALTA LOCATION: [address]#: [id number] : 41 AGE: SEX: F ORDERED BY: NANI STANLEY SOURCE: Blood COLLECTED: 05/03/20 10:48 ANTIBIOTICS AT [place].: RECEIVED : 05/03/20 21:08 SITE: R E S U L T S BLOOD CULTURE, BACTERIAL FINAL 05/08/20 21:42 No Growth at 1 days No Growth at 2 days No Growth at 3 days No Growth at 4 days NO GROWTH - FINAL REPORT Normal [facility] ([place], [place]) Comment on above: Performed By: #### C A #### [address] [id number] CBCon 05-03-2020 Erythrocyte distribution width (RBC) [Ratio] 16.0 % High 11.5 - 14.5 [facility] ([place], [place]) Comment on above: Performed By: #### C MP #### [address] [id number] Hematocrit (Bld) [Volume fraction] 33.8 % Low 36.0 - 46.0 [facility] ([place], [place]) Comment on above: Performed By: #### C MP #### [address] [id number] Hemoglobin (Bld) [Mass/Vol] 11.1 g/dL Low 12.0 - 16.0 [facility] ([place], [place]) Comment on above: Performed By: #### C MP #### [address] [id number] MCHC (RBC) [Mass/Vol] 32.8 g/dL Normal 32.0 - 36.0 [facility] ([place], [place]) Comment on above: Performed By: #### C MP #### [address] [id number] MCV (RBC) [Entitic vol] 89 fL Normal 80 - 100 [facility] ([place], [place]) Comment on above: Performed By: #### C MP #### [address] [id number] Platelets (Bld) [#/Vol] 405 10*3/uL Normal 150 - 450 [facility] ([place], [place]) Comment on above: Performed By: #### C MP #### [address] [id number] RBC (Bld) [#/Vol] 3.81 x10E12/L Low 4.00 - 5.20 [facility] ([place], [place]) Comment on above: Performed By: #### C MP #### [address] [id number] WBC (Bld) [#/Vol] 22.9 10*3/uL High 4.4 - 11.3 [facility] Comment on above: Performed By: #### C MP #### [address] [id number] COMPREHENSIVE PANELon 2020 Albumin [Mass/Vol] 2.7 g/dL Low 3.4 - 5.0 [facility] Comment on above: Performed By: #### C MP #### [address] [id number] ALP [Catalytic activity/Vol] 67 U/L Normal 33 - 136 [facility] ([place], [place]) Comment on above: Performed By: #### C MP #### [address] [id number] ALT [Catalytic activity/Vol] 48 U/L High 7 - 45 [facility] ([place], [place]) Comment on above: Result Comment: Liz ents treated with Sulfasalazine may generate falsely decreased results for ALT. Performed By: #### C MP #### [address] [id number] Anion gap [Moles/Vol] 14 mmol/L Normal 10 - 20 [facility] ([place], [place]) Comment on above: Performed By: #### C MP #### [address] [id number] AST [Catalytic activity/Vol] 16 U/L Normal 9 - 39 [facility] ([place], [place]) Comment on above: Performed By: #### C MP #### [address] [id number] Bilirubin [Mass/Vol] 0.6 mg/dL Normal 0.0 - 1.2 [facility] Comment on above: Performed By: #### C MP #### [address] [id number] Calcium [Mass/Vol] 10.8 mg/dL High 8.6 - 10.3 [facility] Comment on above: Performed By: #### C MP #### [address] [id number] Chloride [Moles/Vol] 101 mmol/L Normal 98 - 107 [facility] Comment on above: Performed By: #### C MP #### [address] [id number] Creatinine [Mass/Vol] 2.39 mg/dL High 0.50 - 1.05 [facility] ([place], [place]) Comment on above: Performed By: #### C MP #### [address] [id number] GFR- AM. 24 mL/min/1.73m2 Abnormal >60 [facility] ([place], [place]) Comment on above: Result Comment: CALC ULATIONS OF ESTIMATED GFR ARE PERFORMED USING THE MDRD STUDY EQUATION FOR THE IDMS-TRACEABLE CREATININE METHODS. CLIN CHEM 2007;53:766-72 Performed By: #### C MP #### [address] [id number] GFR-NON AM. 20 mL/min/1.73m2 Abnormal >60 [facility] ([place], [place]) Comment on above: Performed By: #### C MP #### [address] [id number] Glucose [Mass/Vol] 93 mg/dL Normal 74 - 99 [facility] Comment on above: Performed By: #### C MP #### [address] [id number] HCO3 (Bld) [Moles/Vol] 26 mmol/L Normal 21 - 32 [facility] ([place], [place]) Comment on above: Performed By: #### C MP #### [address] [id number] Potassium [Moles/Vol] 3.3 mmol/L Low 3.5 - 5.3 [facility] ([place], [place]) Comment on above: Performed By: #### C MP #### [address] [id number] Protein [Mass/Vol] 4.8 g/dL Low 6.4 - 8.2 [facility] Comment on above: Performed By: #### C MP #### [address] [id number] Sodium [Moles/Vol] 138 mmol/L Normal 136 - 145 [facility] Comment on above: Performed By: #### C MP #### [address] [id number] Urea nitrogen [Mass/Vol] 86 mg/dL High 6 - 23 [facility] ([place], [place]) Comment on above: Performed By: #### C #### [address] [id number] CHEST [facility]2020 CT CHEST ABDOMEN PELVIS WO CONTRAST Patient Name: LINDA PERALTA STUDY: CT CHEST ABDOMEN PELVIS WO CONTRAST; 05/03/2020 9:48 am INDICATION: pneumonia abnormal renal ultrasound hx of solitary kidney. COMPARISON: None. ACCESSION NUMBER(S): [id number] ORDERING CLINICIAN: NANI STANLEY TECHNIQUE: CT of the chest, abdomen and pelvis was performed. Contiguous axial images were obtained at 3 mm slice thickness through the chest, abdomen and pelvis. Coronal and sagittal reconstructions at 3 mm slice thickness were performed. No intravenous or oral contrast agents were administered. FINDINGS: Please note that the study is limited without intravenous contrast. CHEST: LUNG/PLEURA/LARGE AIRWAYS: [id number] left and trace right pleural effusion. No [...] above. Electronically signed by: JARED GALLARDO MD [facility] Consult - Neuroon 05-03-2020 Consult - [...] The patient also has a history of Ritchie's disease Orthostatic hypotension She was on B12 [...] penicillins: Rash Objective: Objective Information: T PRBPSpO2 [id number]/9593% Date/Time05/02 19: 19: 19: 19: 19:16 Range(36.2C [...] fasciculations or involuntary movements are seen. On [place] testing, there is no pronation or drift. [...] RA Area A4C: 16.4 cm2 RA [place] A4C: 5.0 cm M-MODE MEASUREMENTS: Normal Ranges: [...] 1.2 m/s (0.6-0.9m/s) PV Max P.2 mmHg [id number] Tremayne Mcleod MD Electronically signed on 05/02/2020 [...] with you Consult Status: Consult Order ID: [id number] Electronic Signatures: Vicky Boyd) (Signed 02-May-2020 23:13) Authored: Service, History of Present Illness, Allergies, Objective, Assessment/Recommendatio ns, Note Completion Last Updated: 02-May-2020 23:13 by Vicky Boyd) [facility] Consult-Infectious Diseaseon 05-03-2020 Consult-Infectious Disease Service: [...] penicillins: Rash Consult Status: Consult Order ID: [id number] Electronic Signatures: Di Estrada () (Signed 04-May-2020 06:05) Authored: Service, History of Present Illness, Allergies, Assessment/Recommendatio ns, Note Completion Last Updated: 04-May-2020 06:05 by Di Estrada () Normal [facility] ([place], [place]) Daily Progress Note-Medicine on 05-03-2020 Daily Progress Note-Medicine Service: Medicine Subjective Data: LINDA PERALTA is a 75 year old Female who is Hospital Day # 3. Patient laying in bed has fatigue denies any pain no chest pain or shortness of breath has nausea but no vomiting. Objective Data: Objective Information: T PRBPSpO2 Value36.52403060/8596% Date/Time05/03 7: 7: 7: 7: 7:33 Range(36.3C - 37.3C ) (94 - 95 ) (17 - 18 ) (132 - 176 )/ (85 - 106 ) (93% - 96% ) Highest temp of 37.3 C was recorded at 05/02 23:10 Pain reported at 05/03 10:44: 0 = None ---- Intake and Output ----- Mn/Dy/Year TimeIntakeOutputNet May 03, 2020 6:00 [id number] May 02, 2020 2:00 [id number] The Intake and Output Totals for the last 24 hours are: IntakeOutputNet [id number] Physical Exam by System: Constitutional: Well developed, [...] Mild to moderately elevated pulmonary artery pressure. [id number] Tremayne Mcleod MD Electronically signed on 05/02/2020 [...] Last Updated: 03-May-2020 11:18 by Nani Stanley) [facility] Daily Progress Note-Nephrolo gyon 05-03-2020 Daily Progress Note-Nephrology Service: Nephrology Subjective Data: LINDA PERALTA is a 75 year old Female who is Hospital Day # 3. renal function stable, Ca better, BP better. Objective Data: Objective Information: T PRBPSpO2 Value36.52879062/8596% Date/Time05/03 7: 7: 7: 7: 7:33 Range(36.3C - 37.3C ) (94 - 95 ) (17 - 18 ) (132 - 176 )/ (85 - 106 ) (93% - 96% ) Highest temp of 37.3 C was recorded at 05/02 23:10 Pain reported at 05/03 10:44: 0 = None ---- Intake and Output ----- Mn/Dy/Year TimeIntakeOutputNet May 03, 2020 6:00 [id number] May 02, 2020 2:00 [id number] The Intake and Output Totals for the last 24 hours are: IntakeOutputNet [id number] Constitutional: Alert, in no acute distress HEENT: [...] partial nephrectomy, DVT/PE who was initially at [place] for AMS, hypercalcemia and hypotension now transferred here. 1. ANGELA on CKD: previously hypotensive at [place], now hypertensive, also CRS as pt is [...] Updated: 03-May-2020 12:33 by Leigh Billy) Normal [facility] ([place], [place]) Daily Progress Note-Neurolog yon 05-03-2020 Daily Progress Note-Neurology Service: Neurology Subjective Data: LINDA PERALTA is a 75 year old Female who is Hospital Day # 3. The patient examined feeling weak all over Overall intake output He is urinated Maalox did not help. She did not want Zofran or Phenergan. Objective Data: Objective Information: T PRBPSpO2 Value36.28704372/9296% Date/Time05/03 19: 19: 19: 19: 19:16 Range(36.3C - 37.3C ) (89 - 95 ) (16 - 18 ) (132 - 162 )/ (85 - 95 ) (93% - 96% ) Highest temp of 37.3 C was recorded at 05/02 23:10 Pain reported at 05/03 10:44: 0 = None ---- Intake and Output ----- Mn/Dy/Year TimeIntakeOutputNet May 03, 2020 2:00 [id number] May 03, 2020 6:00 [id number] The Intake and Output Totals for the last 24 hours are: Int[facility]Outunm [facility] [id number] Physical Exam by System: Neurological: The patient [...] Reference Range: STRAW,YELLOW Appearance, Urine CLEAR Specific Carey, Urine 1.008 pH, Urine 6.0 Protein, Urine [...] Level 1.8 Comprehensive Metabolic Panel Trending View [id number] 05:31:00 02-May-2020 02:22:00 Glucose, Serum93 184 H NA138 138 K3.3 L 4.2 CL101 101 Bicarbonate, Serum26 26 Anion Gap, Serum14 15 BUN86 H 84 H CREAT2.39 H 2.31 H GFR-Non Xifcqmis57 A 20 A GFR- Izaygkna22 A 24 A Calcium, Serum10.8 H 12.3 [...] kidney to her brother Sarcoidosis History of Ritchie's disease Gout Chronic kidney disease Hyperlipidemia Atopic [...] Updated: 03-May-2020 20:53 by Vicky Boyd) Normal [facility] ([place], [place]) FOLATE, SERUMon 05-03-2020 Folate [Mass/Vol] 13.5 ng/mL Normal >5.0 [facility] ([place], [place]) Comment on above: Result Comment: Low <3.4 Borderline 3.4-5.0 Normal >5.0 . Patients receiving more than 5 mg/day of biotin may have interference in test results. A sample should be taken no sooner than eight hours after previous dose. Contact the testing laboratory for additional information. Performed By: #### C MP #### [address] [id number] LACTATEon 05-03-2020 Lactate [Moles/Vol] 1.8 mmol/L Normal 0.4 - 2.0 [facility] Comment on above: Result Comment: Nadia puncture immediately after or during the administration of Metamizole may lead to falsely low results. Testing should be performed immediately prior to Metamizole dosing. Performed By: #### C BC #### [address] [id number] PARATHYROID HORMONE,INTACTon 05-03-2020 PARATHYROID HORMONE,INTACT 19.6 pg/mL Normal 12.0 - 88.0 [facility] ([place], [place]) Comment on above: Performed By: #### P TH ####[address] [id number] PT/INRon 05-03-2020 INR Coag (PPP) [Relative time] 2.8 {INR} High 0.9 - 1.1 [facility] ([place], [place]) Comment on above: Performed By: #### P TINR ####[address] [id number] PT Coag (PPP) [Time] 33.4 s High 10.1 - 13.3 [facility] ([place], [place]) Comment on above: Performed By: #### P TINR ####[address] [id number] UA MICROSCOPICon 05-03-2020 MUCUS 1+ /LPF Normal [facility] ([place], [place]) Comment on above: Performed By: #### P R12 #### [facility] [address] [place] [address] RBC 9 /HPF Abnormal 0-5 [facility] ([place], [place]) Comment on above: Performed By: #### P R12 #### [facility] [address] [place] [address] SQUAMOUS EPITH. CELLS 2 /HPF Normal [facility] ([place], [place]) Comment on above: Performed By: #### P R12 #### [facility] [address] [place] [address] WBC 7 /HPF Abnormal 0-5 [facility] ([place], [place]) Comment on above: Performed By: #### P R12 #### [facility] [address] [place] [address] URINALYSISon 05-03-2020 Appearance (U) Canceled Normal [facility] ([place], [place]) Comment on above: Order Comment: TEST URINALYSIS WAS CANCELLED, 05/03/2020 14:06 DUPLICATE ORDER. Performed By: #### U A ####[address] [id number] ASCORBIC ACID Canceled Normal [facility] ([place], [place]) Comment on above: Order Comment: TEST URINALYSIS WAS CANCELLED, 05/03/2020 14:06 DUPLICATE ORDER. Result Comment: Conc entrations > = 20 mg/dL of ascorbic acid can be expected to cause strong interference in the reactions testing for glucose, nitrite and blood. It is recommended to discontinue Vitamin C administration and retest in 10 hours. Performed By: #### U A ####[address] [id number] Bilirubin (U) [Mass/Vol] Canceled Normal [facility] ([place], [place]) Comment on above: Order Comment: TEST URINALYSIS WAS CANCELLED, 05/03/2020 14:06 DUPLICATE ORDER. Performed By: #### U A ####[address] [id number] BLOOD Canceled Normal [facility] ([place], [place]) Comment on above: Order Comment: TEST URINALYSIS WAS CANCELLED, 05/03/2020 14:06 DUPLICATE ORDER. Performed By: #### U A ####[address] [id number] Color (U) Canceled Normal [facility] ([place], [place]) Comment on above: Order Comment: TEST URINALYSIS WAS CANCELLED, 05/03/2020 14:06 DUPLICATE ORDER. Performed By: #### U A ####[address] [id number] Glucose [Mass/Vol] Canceled Normal [facility] Comment on above: Order Comment: TEST URINALYSIS WAS CANCELLED, 05/03/2020 14:06 DUPLICATE ORDER. Performed By: #### U A ####[address] [id number] Ketones Ql (U) Canceled Normal [facility] ([place], [place]) Comment on above: Order Comment: TEST URINALYSIS WAS CANCELLED, 05/03/2020 14:06 DUPLICATE ORDER. Performed By: #### U A ####[address] [id number] Leukocyte esterase Test strip Ql (U) Canceled Normal [facility] ([place], [place]) Comment on above: Order Comment: TEST URINALYSIS WAS CANCELLED, 05/03/2020 14:06 DUPLICATE ORDER. Performed By: #### U A ####[address] [id number] Nitrite Ql (U) Canceled Normal [facility] ([place], [place]) Comment on above: Order Comment: TEST URINALYSIS WAS CANCELLED, 05/03/2020 14:06 DUPLICATE ORDER. Performed By: #### U A ####[address] [id number] pH (Bld) Canceled Normal [facility] ([place], [place]) Comment on above: Order Comment: TEST URINALYSIS WAS CANCELLED, 05/03/2020 14:06 DUPLICATE ORDER. Performed By: #### U A ####[address] [id number] Protein (U) [Mass/Vol] Canceled Normal [facility] ([place], [place]) Comment on above: Order Comment: TEST URINALYSIS WAS CANCELLED, 05/03/2020 14:06 DUPLICATE ORDER. Performed By: #### U A ####[address] [id number] Specific gravity (U) [Rel density] Canceled Normal [facility] ([place], [place]) Comment on above: Order Comment: TEST URINALYSIS WAS CANCELLED, 05/03/2020 14:06 DUPLICATE ORDER. Performed By: #### U A ####[address] [id number] Urobilinogen Qn (U) Canceled Normal [facility] Comment on above: Order Comment: TEST URINALYSIS WAS CANCELLED, 05/03/2020 14:06 DUPLICATE ORDER. Performed By: #### U A ####[address] [id number] URINALYSIS WITH CULTURE IF I NDICATEDon 05-03-2020 Appearance (U) CLEAR Normal CLEAR [facility] ([place], [place]) Comment on above: Performed By: #### C MP #### [facility] [address] [place], [place] [id number] Bilirubin (U) [Mass/Vol] Negative Normal NEGATIVE [facility] ([place], [place]) Comment on above: Performed By: #### C MP #### [address] [id number] BLOOD SMALL(1+) Abnormal NEGATIVE [facility] ([place], [place]) Comment on above: Performed By: #### C MP #### [address] [id number] Color (U) STRAW Normal STRAW,YELLOW [facility] ([place], [place]) Comment on above: Performed By: #### C MP #### [address] [id number] Glucose [Mass/Vol] Negative Normal NEGATIVE [facility] Comment on above: Performed By: #### C MP #### [address] [id number] Ketones Ql (U) Negative Normal NEGATIVE [facility] ([place], [place]) Comment on above: Performed By: #### C MP #### [address] [id number] Leukocyte esterase Test strip Ql (U) SMALL (1+) Abnormal NEGATIVE [facility] ([place], [place]) Comment on above: Performed By: #### C MP #### [address] [id number] Nitrite Ql (U) Negative Normal NEGATIVE [facility] ([place], [place]) Comment on above: Performed By: #### C MP #### [address] [id number] pH (Bld) 6.0 Normal 5.0 - 8.0 [facility] ([place], [place]) Comment on above: Performed By: #### C MP #### [address] [id number] Protein (U) [Mass/Vol] Negative Normal NEGATIVE [facility] ([place], [place]) Comment on above: Performed By: #### C MP #### [address] [id number] Specific gravity (U) [Rel density] 1.008 Normal 1.005 - 1.035 [facility] ([place], [place]) Comment on above: Performed By: #### C MP #### [address] [id number] Urobilinogen Qn (U) <2.0 Normal 0.0 - 1.9 [facility] Comment on above: Performed By: #### C MP #### [address] [id number] Lab Specimen Source Normal [facility] Comment on above: Performed By: #### C MP #### [address] [id number] Performed By: #### P R12 #### [facility] [address] [place] [id number] URINE CULTURE,BACTERIALon URINE CULTURE,BACTERIAL PATIENT: LINDA PERALTA LOCATION: [address]#: [id number] : 41 AGE: SEX: F ORDERED BY: NANI STANLEY SOURCE: URINE COLLECTED: 05/03/20 11:12 ANTIBIOTICS AT [place].: RECEIVED : 05/03/20 21:18 SITE: R E S U L T S URINE CULTURE,BACTERIAL FINAL 05/04/20 14:[address] [facility] ([place], [place]) Comment on above: Performed By: #### P R12 #### [facility] [address] [place] [id number] US CAROTID BILATERAL DUPLEXo n 05-03-2020 US CAROTID BILATERAL DUPLEX Patient Name: LINDA PERALTA STUDY: US CAROTID BILATERAL DUPLEX; 05/03/2020 10:18 am INDICATION: Change in the mental status question of strokes, gait ataxia and falls, fainting spells. COMPARISON: None. ACCESSION NUMBER(S): [id number] ORDERING CLINICIAN: VICKY BOYD FINDINGS: Duplex scan [...] year. Electronically signed by: VICKY BOYD MD [facility] Admission Risk Screen - Adul ton [...] DNR-CCA Availabilityplaced on chart DNR-CCA Placed on [id number] Advanced Directive Commentno intubation [place] Fall Screen: [...] instruction; written material Cultural Considerationsnone Developmental Considerationsnone Evangelical Considerationsnone Learning Assessment (Other Learner): Other learner availableno Depression Screen: During the past month, have you often been bothered by feeling down, depressed or hopelessyes is sick (dx of [place]) During the past month, have you often had little interest or pleasure in doing thingsno Have you had any thoughts of harming anyone elseno [place] Suicide: Risk Screen Not Applicable/Able to Answerable to be screened In the Past Month: Have you wished you were or could go to sleep and not wake upno In the Past Month: Have you had any actual thoughts of killing yourselfno Lifetime: Have you ever done, started to do, or prepared to do anything to end your lifeno [place] Suicide Risknegative Adult Nutrition Screen: Have you [...] Spiritual Screen: Are there any cultural, spiritual, baptist practices/values/needs that are important for us to knowno CAGE: Is this an injured [place] a [place] Center [place] [place]/[place] /[place]): no Vaccinations: Vaccination - Influenza Vaccination Screen: [...] 02-May-2020 01:37 by Nehemias Mercado (ROSS) Normal [facility] ([place], [place]) BNPon 05-02-2020 Natriuretic peptide B (Bld) [Mass/Vol] 1665 pg/mL High 0 - 99 [facility] [place]) Comment on above: Result Comment: . <1 00 pg/mL - Heart failure unlikely 100-299 pg/mL - Intermediate probability of acute heart . failure exacerbation. Correlate with clinical . context and patient history. >=300 pg/mL - Heart Failure likely. Correlate with clinical . context and patient history. BNP testing is performed using different testing methodology at [facility] than at other [place] [facility]. Direct result comparisons should only be made within the same method. Performed By: #### C BC #### [facility] [address] [place], [place] [id number] C-REACTIVE PROTEINon 021 CRP [Mass/Vol] 1.41 mg/dL Abnormal [facility] ([place], [place]) Comment on above: Result Comment: REF VALUE < 1.00 Performed By: #### C MP #### [address] [id number] CALCIUMon 05-02-2020 Calcium [Mass/Vol] Canceled Normal [facility] Comment on above: Order Comment: TEST CALCIUM WAS CANCELLED, 05/02/2020 12:20 added per RN 05/02/2020 12:20. Performed By: #### C A #### [address] [id number] CALCIUM, IONIZEDon 1 CALCIUM,IONIZED 1.71 mmol/L High 1.10 - 1.33 [facility] ([place], [place]) Comment on above: Performed By: #### C MP #### [address] [id number] CBC AND DIFFERENTIALon 05-02 % AUTOMATED IMMATURE GRAN 5.6 % High 0.0 - 0.9 [facility] ([place], [place]) Comment on above: Result Comment: Linda ture Granulocyte Count (IG) includes promyelocytes, myelocytes and metamyelocytes but does not include bands. Percent differential counts (%) should be interpreted in the context of the absolute cell counts (cells/L). Performed By: #### C BC #### [address] [id number] DIFFERENTIAL SEE MANUAL DIFF Normal [facility] ([place], [place]) Comment on above: Performed By: #### C BC #### [address] [id number] Erythrocyte distribution width (RBC) [Ratio] 15.7 % High 11.5 - 14.5 [facility] ([place], [place]) Comment on above: Performed By: #### C BC #### [address] [id number] Hematocrit (Bld) [Volume fraction] 34.1 % Low 36.0 - 46.0 [facility] ([place], [place]) Comment on above: Performed By: #### C BC #### [address] [id number] Hemoglobin (Bld) [Mass/Vol] 11.2 g/dL Low 12.0 - 16.0 [facility] ([place], [place]) Comment on above: Performed By: #### C BC #### [address] [id number] MCHC (RBC) [Mass/Vol] 32.8 g/dL Normal 32.0 - 36.0 [facility] ([place], [place]) Comment on above: Performed By: #### C BC #### [address] [id number] MCV (RBC) [Entitic vol] 90 fL Normal 80 - 100 [facility] ([place], [place]) Comment on above: Performed By: #### C BC #### [address] [id number] Platelets (Bld) [#/Vol] 378 10*3/uL Normal 150 - 450 [facility] ([place], [place]) Comment on above: Performed By: #### C BC #### [address] [id number] RBC (Bld) [#/Vol] 3.81 x10E12/L Low 4.00 - 5.20 [facility] ([place], [place]) Comment on above: Performed By: #### C BC #### [address] [id number] WBC (Bld) [#/Vol] 17.9 10*3/uL High 4.4 - 11.3 [facility] Comment on above: Performed By: #### C BC #### [address] [id number] CHEST 2 VIEW PA AND LATon CHEST 2 VIEW PA AND LAT Patient Name: LINDA PERALTA STUDY: CHEST 2 VIEW PA AND LAT; 05/02/2020 12:49 pm INDICATION: hypoxia. COMPARISON: None. ACCESSION NUMBER(S): [id number] ORDERING CLINICIAN: NANI STANLEY FINDINGS: CARDIOMEDIASTINAL SILHOUETTE AND VASCULATURE: Cardiac size: Mild cardiomegaly Aortic shadow: Within normal limits considering technique Mediastinal contours: Within normal limits considering technique Pulmonary vasculature: The central vasculature is unremarkable LUNGS: There is opacification at the left lower lung probably from crwo-gn-nhiudjss pleural effusion and underlying atelectasis or consolidation. [...] Electronically signed by: ALBERTO HARRIS MD Normal [facility] ([place], [place]) COAGULATION SCREENon 021 aPTT Coag (Bld) [Time] 25 s Normal 25 - 35 [facility] ([place], [place]) Comment on above: Result Comment: THE APTT IS NO LONGER USED FOR MONITORING UNFRACTIONATED HEPARIN THERAPY. FOR MONITORING HEPARIN THERAPY, USE THE HEPARIN ASSAY. Performed By: #### C MP #### [address] [id number] INR Coag (PPP) [Relative time] 2.4 {INR} High 0.9 - 1.1 [facility] ([place], [place]) Comment on above: Performed By: #### C MP #### [address] [id number] PT Coag (PPP) [Time] 28.4 s High 10.1 - 13.3 [facility] ([place], [place]) Comment on above: Performed By: #### C MP #### [address] [id number] COMPREHENSIVE PANELon 2020 Albumin [Mass/Vol] 3.0 g/dL Low 3.4 - 5.0 [facility] Comment on above: Performed By: #### C MP #### [address] [id number] ALP [Catalytic activity/Vol] 79 U/L Normal 33 - 136 [facility] ([place], [place]) Comment on above: Performed By: #### C MP #### [address] [id number] ALT [Catalytic activity/Vol] 64 U/L High 7 - 45 [facility] ([place], [place]) Comment on above: Result Comment: Liz ents treated with Sulfasalazine may generate falsely decreased results for ALT. Performed By: #### C MP #### [address] [id number] Anion gap [Moles/Vol] 15 mmol/L Normal 10 - 20 [facility] ([place], [place]) Comment on above: Performed By: #### C MP #### [address] [id number] AST [Catalytic activity/Vol] 18 U/L Normal 9 - 39 [facility] ([place], [place]) Comment on above: Performed By: #### C MP #### [address] [id number] Bilirubin [Mass/Vol] 0.7 mg/dL Normal 0.0 - 1.2 [facility] Comment on above: Performed By: #### C MP #### [address] [id number] Calcium [Mass/Vol] 12.3 mg/dL High 8.6 - 10.3 [facility] Comment on above: Performed By: #### C MP #### [address] [id number] Chloride [Moles/Vol] 101 mmol/L Normal 98 - 107 [facility] Comment on above: Performed By: #### C MP #### [address] [id number] Creatinine [Mass/Vol] 2.31 mg/dL High 0.50 - 1.05 [facility] ([place], [place]) Comment on above: Performed By: #### C MP #### [address] [id number] GFR- AM. 24 mL/min/1.73m2 Abnormal >60 [facility] ([place], [place]) Comment on above: Result Comment: CALC ULATIONS OF ESTIMATED GFR ARE PERFORMED USING THE MDRD STUDY EQUATION FOR THE IDMS-TRACEABLE CREATININE METHODS. CLIN CHEM 2007;53:766-72 Performed By: #### C MP #### [address] [id number] GFR-NON AM. 20 mL/min/1.73m2 Abnormal >60 [facility] ([place], [place]) Comment on above: Performed By: #### C MP #### [address] [id number] Glucose [Mass/Vol] 184 mg/dL High 74 - 99 [facility] Comment on above: Performed By: #### C MP #### [address] [id number] HCO3 (Bld) [Moles/Vol] 26 mmol/L Normal 21 - 32 [facility] ([place], [place]) Comment on above: Performed By: #### C MP #### [address] [id number] Potassium [Moles/Vol] 4.2 mmol/L Normal 3.5 - 5.3 [facility] ([place], [place]) Comment on above: Performed By: #### C MP #### [address] [id number] Sodium [Moles/Vol] 138 mmol/L Normal 136 - 145 [facility] Comment on above: Performed By: #### C MP #### [address] [id number] Urea nitrogen [Mass/Vol] 84 mg/dL High 6 - 23 [facility] ([place], [place]) Comment on above: Performed By: #### C MP #### [address] [id number] CREATINE KINASEon 05-02-2020 CK [Catalytic activity/Vol] 28 U/L Normal 0 - 215 [facility] ([place], [place]) Comment on above: Performed By: #### C A #### [address] [id number] Consult-Nephrologyon 021 Consult-Nephrology Service: Service: Nephrology Consult: Consult requested by (Attending Name): Nani Stanley Reason: ANGELA History of Present Illness: HPI: LINDA PERALTA is a 75 year old Female w/ history s/f HTN, CAD, moris's disease, solitary kidney c/b RCC s/p partial nephrectomy, DVT/PE who was initially at [facility] for AMS, hypercalcemia and hypotension now transferred [...] at 31. Pt states she sees a aed trainer Dr. Tarango PMHx: DVT/PE on warfarin, renal [...] penicillins: Rash Objective: Objective Information: T PRBPSpO2 Value36.21641163/8396% Date/Time05/02 8: 10: 8: 10: 8:30 Range(36.2C [...] partial nephrectomy, DVT/PE who was initially at [place] for AMS, hypercalcemia and hypotension now transferred [...] to follow Consult Status: Consult Order ID: [id number] Electronic Signatures: Leigh Billy) (Signed 02-May-2020 12:52) Authored: Service, History of Present Illness, Allergies, Objective, Assessment/Recommendatio ns, Note Completion Last Updated: 02-May-2020 12:52 by Leigh Billy) Normal [facility] ([place], [place]) Daily Progress Note-Medicine on 05-02-2020 Daily Progress [...] changes. Objective Data: Objective Information: T PRBPSpO2 Value36.71751528/8396% Date/Time05/02 8: 10: 8: 10: 8:30 Range(36.2C [...] 1665, echo normal EF. Venous Doppler from [facility] 04/24 - for DVT -Appears she received fluids, furosemide, pamidronate [facility] -previously reported extreme elevation D > 250 at [facility], CT chest abdomen pelvis nonacute Impression 2: CKD, SOLITARY KIDNEY S/P PARTIAL NEPHRECTOMY benign RCC Plan for Impression 2: -Nephrology following -Baseline renal function unknown. Presenting creatinine 3/3 at [facility] 1.82 Impression 3: [...] Signature/Cosignature/At testation: Note Completion: I am a: DISEASE EDUCATION SPECIALIST Student DISEASE EDUCATION SPECIALIST Student AttestationI was present with the DISEASE EDUCATION SPECIALIST student who participated in the documentation of this note. I have personally seen and re-examined the patient and performed the medical decision-making components (assessment and plan of care). I have reviewed the DISEASE EDUCATION SPECIALIST student documentation and verified the findings in the note as written with additions or exceptions as stated in the body of this note. I personally evaluated the patient [id number] Comments/ Additional Findings Patient was seen and [...] Updated: 02-May-2020 16:15 by Nani Stanley) Normal [facility] ([place], [place]) History and Physicalon 05-02 History and Physical [...] a day. Objective: Objective Information: T PRBPSpO2 Value36.38982574/68382% Date/Time05/02 4: 4: 19: 4: 4:22 Range(36.3C [...] to decline elective intubation order entered in [facility] to reflect pt's wishes Signatures/Attestation/C ertification: Note Completion Attending Provider Inpatient Certification StatementI certify this patients need for inpatient care based on the above documentation including; the order to admit as inpatient, the anticipated length of stay, diagnosis, problem list and plan of care, and discharge plan. Admission Order - View OnlyCurrent Admission Order. Admit to Inpatient Adult Community Transfer to, [facility] ([place], [place]): [address] Admitting Diagnosis, E83.52 Hypercalcemia , Attending [...] Updated: 02-May-2020 12:26 by Leigh Billy) Normal [facility] ([place], [place]) LACTATEon 05-02-2020 Lactate [Moles/Vol] 1.8 mmol/L Normal 0.4 - 2.0 [facility] Comment on above: Result Comment: Nadia puncture immediately after or during the administration of Metamizole may lead to falsely low results. Testing should be performed immediately prior to Metamizole dosing. Performed By: #### C BC #### [facility] [address] [place], [place] [id number] MAGNESIUMon 05-02-2020 Magnesium [Mass/Vol] 2.00 mg/dL Normal 1.60 - 2.40 [facility] ([place], [place]) Comment on above: Performed By: #### M G ####[facility] [place], [place] [id number] MANUAL DIFFERENTIALon 2020 % EOSINOPHIL 0.0 % Normal 0.0 - 6.0 [facility] ([place], [place]) Comment on above: Performed By: #### P R12 #### [facility] [address] [place] [address] % METAMYELOCYTE 3.0 % Normal 0.0 - 0.0 [facility] ([place], [place]) Comment on above: Performed By: #### P R12 #### [facility] [address] [place] [address] % MYELOCYTE 2.0 % Normal 0.0 - 0.0 [facility] ([place], [place]) Comment on above: Performed By: #### P R12 #### [facility] [address] [place] [address] % SEG NEUTROPHIL 81.0 % Normal 40.0 - 80.0 [facility] ([place], [place]) Comment on above: Result Comment: Perc ent differential counts (%) should be interpreted in the context of the absolute cell counts (cells/L). Performed By: #### P R12 #### [facility] [address] [place] [address] ANC 14.86 x10E9/L High 1.60 - 5.50 [facility] ([place], [place]) Comment on above: Performed By: #### P R12 #### [facility] [address] [place] [address] Band form neutrophils/100 WBC (Bld) 2.0 % Normal 0.0 - 5.0 [facility] ([place], [place]) Comment on above: Performed By: #### P R12 #### [facility] [address] [place] [address] BAND NEUTROPHIL 0.36 x10E9/L Normal 0.00 - 0.50 [facility] Comment on above: Performed By: #### P R12 #### [facility] [address] [place] [address] BASOPHIL 0.00 x10E9/L Normal 0.00 - 0.10 [facility] ([place], [place]) Comment on above: Performed By: #### P R12 #### [facility] [address] [place] [address] Basophils/100 WBC (Bld) 0.0 % Normal [facility] ([place], [place]) Comment on above: Performed By: #### P R12 #### [facility] [address] [place] [address] EOSINOPHIL 0.00 x10E9/L Normal 0.00 - 0.40 [facility] ([place], [place]) Comment on above: Performed By: #### P R12 #### [facility] [address] [place] [address] LYMPHOCYTE 1.07 x10E9/L Normal 0.80 - 3.00 [facility] ([place], [place]) Comment on above: Performed By: #### P R12 #### [facility] [address] [place] [address] Lymphocytes/100 WBC (Bld) 6.0 % Normal 13.0 - 44.0 [facility] ([place], [place]) Comment on above: Performed By: #### P R12 #### [facility] [address] [place] [address] Metamyelocytes/100 WBC (Bld) 0.54 x10E9/L Abnormal 0.00 - 0.00 [facility] ([place], [place]) Comment on above: Performed By: #### P R12 #### [facility] [address] [place] [address] MONOCYTE 1.07 x10E9/L High 0.05 - 0.80 [facility] ([place], [place]) Comment on above: Performed By: #### P R12 #### [facility] [address] [place] [address] Monocytes/100 WBC (Bld) 6.0 % Normal 2.0 - 10.0 [facility] ([place], [place]) Comment on above: Performed By: #### P R12 #### [facility] [address] [place] [address] MYELOCYTE 0.36 x10E9/L Abnormal 0.00 - 0.00 [facility] ([place], [place]) Comment on above: Performed By: #### P R12 #### [facility] [address] [place] [address] SEG NEUTROPHIL 14.50 x10E9/L High 1.60 - 5.00 [facility] Comment on above: Performed By: #### P R12 #### [facility] [address] [place] [address] OSMOLALITY, SERUMon 05-03-19 21 OSMOLALITY, SERUM 322 mOsm/kg H2O High 280 - 300 [facility] ([place], [place]) Comment on above: Performed By: #### O SMOL ####[facility] [place], [place] [id number] Order Reconciliationon 05-02 Order Reconciliation Page 1 [...] 1000 milligram(s) orally every 6 hours, As Wmiwzh26-Vjr-3390 UNKNOWN UNKNOWN Reviewed and Held atorvastatin 10 mg oral tablet 1 tab(s) orally once a day (at bedtime) 57-Tvq-1372FURIUTV UNKNOWN Atorvastatin Tablet (LIPITOR)DOSE = 10 mg Oral Dailyatorvastatin 10 mg oral tablet continued as the inpatient order Atorvastatin Calmoseptine 0.44%-20.6% topical ointment Apply topically to affected area 2 times a day, As Hlqqwr26-Vkb-912712-Jtq- 2021 PM Menthol 0.44% - Zinc Oxide 20.625% Topical Ointment (CALMOSEPTINE)DOSE = 1 application(s) Topical 3 Times a DayApply to SacrumCalmoseptine 0.44%-20.6% topical ointment continued as the inpatient order Menthol 0.44% - Zinc Oxide 20.625% Topical cholecalciferol 1000 intl units (25 mcg) oral tablet 1 tab(s) orally once a day 77-Xkh-0754VNCQRSC UNKNOWN Reviewed and Held cyanocobalamin 1000 mcg oral tablet 1 tab(s) orally once a prv39-Ilj-9982 UNKNOWN UNKNOWN Reviewed and Held dupilumab 300 milligram(s) subcutaneous every 2 -Kun-3458TGNCKYQ UNKNOWN Reviewed and Held Florinef Acetate 0.1 mg oral tablet 1 tab(s) orally once a axg16-Dvh-5161 UNKNOWN UNKNOWN Fludrocortisone Tablet (FLORINEF)DOSE = 0.1 mg Oral Daily Florinef Acetate 0.1 mg oral tablet continued as the inpatient order Fludrocortisone fluticasone nasal 1 spray(s) nasal once a day (at bedtime)80-Pua-1301WXNQT WN UNKNOWN Fluticasone 50 microgram/ Nasal Inhalation (FLONASE)DOSE = 1 spray(s) Each Nostril DailyNotes from Pharmacy: RCRAfluticasone nasal continued as the inpatient order Fluticasone 50 microgram/ Nasal Inhalation hydrocortisone 10 mg oral tablet 1 tab(s) orally once a dnz21-Jje-8227PCMWQKJ UNKNOWN Hydrocortisone Tablet (CORTEF)DOSE = 10 mg Oral Dailyhydrocortisone 10 mg oral tablet continued as the inpatient order Hydrocortisone hydrocortisone 20 mg oral tablet 1 tab(s) orally once a vex65-Iua-1062ZTFYYET UNKNOWN Hydrocortisone Tablet (CORTEF)DOSE = 20 mg Oral Daily 1800 hydrocortisone 20 mg oral tablet continued as the inpatient order Hydrocortisone lactobacillus acidophilus-lactobacillu s casei oral delayed release capsule 1 cap(s) orally once a fry14-Kmt-7995DTXHNKV UNKNOWN Reviewed and Held nitroglycerin 0.4 mg sublingual tablet 1 tab(s) sublingual every 5 minutes, As Kyfujd82-Oil-7590EXWPYHC UNKNOWN Nitroglycerin SubLingual Tablet (NITROSTAT)DOSE = 0.4 mg SubLingual Every 5 Minutes, PRN Anginanitroglycerin 0.4 mg sublingual tablet continued as the inpatient order Nitroglycerin SubLingual warfarin 2.5 mg oral tablet 1 tab(s) orally once a ilm83-Jpy-187245-Cgg-682 1 PM Blood in Urine, Monitor for [...] oral tablet 1 tab(s) orally once a xwe60-Ubr-142100-Bhu-670 1 PM Bleeding, Monitor for Call physician [...] oral tablet 1 tab(s) orally once a oqg41-Qsr-217729-Cpm-939 1 PM Nursing to ensure Your Guide [...] oral tablet 1 tab(s) orally once a lvk05-Yhr-504676-Xvu-876 1 PM Communication Order INR Goal 2 [...] oral tablet 1 tab(s) orally once a elh20-Kef-843095-Esl-165 1 PM Warfarin Tablet (COUMADIN)DOSE = 2.5 [...] mL Run at: 100 mL/hr IntraVenous Normal [facility] ([place], [place]) PARATHYROID HORMONE,INTACTon 05-02-2020 PARATHYROID HORMONE,INTACT Canceled Normal [facility] ([place], [place]) Comment on above: Order Comment: TEST PARATHYROID HORMONE,INTACT WAS CANCELLED, 05/02/2020 12:20 added per RN05/02/2020 12:20. Performed By: #### P TH ####[address] [id number] PHOSPHORUSon 05-02-2020 Phosphate [Mass/Vol] 6.4 mg/dL High 2.5 - 4.9 [facility] Comment on above: Result Comment: The performance characteristics of phosphorus testing in heparinized plasma have been validated by the individual laboratory site where testing is performed. Testing on heparinized plasma is not approved by the FDA; however, such approval is not necessary. Performed By: #### C MP #### [address] [id number] PREALBUMINon 05-02-2020 Prealbumin [Mass/Vol] 28.0 mg/dL Normal 18.0 - 40.0 [facility] ([place], [place]) Comment on above: Performed By: #### C BC #### [address] [id number] PROTEIN ELECTROPHORESIS + IM MUNOFIXATION, SERUMon 05-02-2020 Protein [Mass/Vol] 5.5 g/dL Low 6.4 - 8.2 [facility] Comment on above: Performed By: #### I FE2 ####[address] [id number] [place] [address] Performed By: #### C MP #### [address] [id number] PROTEIN ELECTROPHORESIS,SERU 05-02-2020 Albumin [Mass/Vol] Canceled Normal [facility] Comment on above: Order Comment: TEST PROTEIN ELECTROPHORESIS,SERUM WAS CANCELLED, 05/02/2020 12:20 added per RN 05/02/2020 12:20. Performed By: #### S PE2 #### [facility] [address] [place] [address] ALPHA 1 GLOBULIN Canceled Normal [facility] Comment on above: Order Comment: TEST PROTEIN ELECTROPHORESIS,SERUM WAS CANCELLED, 05/02/2020 12:20 added per RN 05/02/2020 12:20. Performed By: #### S PE2 #### [facility] [address] [place] [address] ALPHA 2 GLOBULIN Canceled Normal [facility] Comment on above: Order Comment: TEST PROTEIN ELECTROPHORESIS,SERUM WAS CANCELLED, 05/02/2020 12:20 added per RN 05/02/2020 12:20. Performed By: #### S PE2 #### [facility] [address] [place] [address] BETA GLOBULIN Canceled Normal [facility] ([place], [place]) Comment on above: Order Comment: TEST PROTEIN ELECTROPHORESIS,SERUM WAS CANCELLED, 05/02/2020 12:20 added per RN 05/02/2020 12:20. Performed By: #### S PE2 #### [facility] [address] [place] [address] GAMMA GLOBULIN Canceled Normal [facility] ([place], [place]) Comment on above: Order Comment: TEST PROTEIN ELECTROPHORESIS,SERUM WAS CANCELLED, 05/02/2020 12:20 added per RN 05/02/2020 12:20. Performed By: #### S PE2 #### [facility] [address] [place] [address] INTERPRET[address] Canceled Normal [facility] ([place], [place]) Comment on above: Order Comment: TEST PROTEIN ELECTROPHORESIS,SERUM WAS CANCELLED, 05/02/2020 12:20 added per RN 05/02/2020 12:20. Performed By: #### S PE2 #### [facility] [address] [place] [address] Protein [Mass/Vol] Canceled Normal [facility] Comment on above: Order Comment: TEST PROTEIN ELECTROPHORESIS,SERUM WAS CANCELLED, 05/02/2020 12:20 added per RN 05/02/2020 12:20. Performed By: #### S PE2 #### [facility] [address] [place] [address] Order Comment: TEST PTH RELATED PROTEIN WAS CANCELLED, 05/02/2020 12:20 added per RN05/02/2020 12:20. Performed By: #### P R12 #### [facility] [address] [place] [id number] Patient Profile - Adult v2on 05-02-2020 Patient Profile - Adult v2 Profile: Initial Info: How to be AddressedLinda Spoken Language PreferredEnglish Source of Informationhealth record; patient Stated Reason for Admissionpatient states I fell. Primary Contact Name and NumberSouleymane Lopez - [phone] (daughter) Other Contact Names and NumbersWilman Peralta - [phone] - Next of Kin - Patients Patient Belongingsnone Arrived Fromspital Medications Brought to Hospitalno Are you currently using the Personal Electronic Health Record or MYCAREno Wants Family/Rep Notified of Admissionyes, primary contact Notify PCPnotify PCP Informed of Patient Visiting Rightsyes General Health: Weight in kg74.5 kilogram(s) Weight in lhq276.2 pound(s) Weight Methodactual (measured) Scale Typebed Height [...] Lives Withspouse Living Arrangementshouse Services [facility] Anticipated Transition Tomunith Significant IndicatorsComplete Information Review: Allergies, Home Meds and Significant Events have been Reviewed and Verified with Patient/Familyyes ALLERGY, INTOLERANCE, ADVERSE EVENT: Allergies: ciprofloxacin: Drug, Rash, Active penicillins: Drug Category, Rash, Active Electronic Signatures: Nehemias Mercado (RN) (Signed 02-May-2020 01:28) Authored: Initial Info, General Health, RSP Based Care, Substance, Health Mgmt, Relationship/Environ, Additional Information Last Updated: 02-May-2020 01:28 by Nehemias Mercado (RN) Normal [facility] ([place], [place]) RED CELL MORPHOLOGYon 2020 RBC morphology finding Nom (Bld) SEE COMMENT Normal [facility] ([place], [place]) Comment on above: Result Comment: NO S IGNIFICANT RBC ABNORMALITIES SEEN ON SMEAR REVIEW. Performed By: #### C A #### [facility] [address] [place], [place] [id number] RETICULOCYTESon 05-02-2020 RETIC # 0.054 x10E12/L Normal 0.017 - 0.110 [facility] ([place], [place]) Comment on above: Performed By: #### R ETIC ####[facility] [place], [place] [id number] RETIC % 1.4 % Normal 0.5 - 2.0 [facility] ([place], [place]) Comment on above: Performed By: #### R ETIC ####[facility] [place], [place] [id number] RETIC-HB 37 pg Normal 28 - 38 [facility] ([place], [place]) Comment on above: Performed By: #### R ETIC ####[facility] [place], [place] [id number] SPE PATH REVIEWon 05-02-2020 PATH REVIEW-SPE Canceled Normal [facility] ([place], [place]) Comment on above: Order Comment: TEST SPE PATH REVIEW WAS CANCELLED, 05/02/2020 12:20 added per RN 112:20. Result Comment: By h er/his signature above, the Pathologist listed as making the final interpretation certifies that she/he has personally reviewed this case. Performed By: #### P R12 #### [facility] [address] [place] [address] THYROXINE,FREEon 05-02-2020 THYROXINE,FREE 1.30 ng/dL High 0.61 - 1.12 [facility] ([place], [place]) Comment on above: Result Comment: Thyr oxine Free testing is performed using different testing methodology at [facility] than at other [place] [facility]. Direct result comparisons should only be [...] blood draw. Performed By: #### T 4FRE ####[address] [place], [place] [id number] TSHon 05-02-2020 TSH Qn 0.69 m[IU]/L Normal 0.44 - 3.98 [facility] ([place], [place]) Comment on above: Result Comment: TSH testing is performed using different testing methodology at [facility] than at other [place] [facility]. Direct result comparisons should only be made within the same method. Performed By: #### C BC #### [facility] [address] [place], [place] [id number] URIC ACIDon 05-02-2020 Urate [Mass/Vol] 10.4 mg/dL High 2.3 - 6.7 [facility] Comment on above: Result Comment: Nadia puncture immediately after or during the administration of Metamizole may lead to falsely low results. Testing should be performed immediately prior to Metamizole dosing. Performed By: #### U SANDI ####[address] [id number] US RENAL BILATon 05-02-2020 US RENAL BILAT Patient Name: LINDA PERALTA STUDY: US RENAL BILAT; 05/02/2020 12:38 pm INDICATION: ANGELA. COMPARISON: None. ACCESSION NUMBER(S): [id number] ORDERING CLINICIAN: NANI STANLEY TECHNIQUE: Multiple images [...] Electronically signed by: ALBERTO HARRIS MD Normal [facility] ([place], [place]) VITAMIN D 1,25-DIHYDROXYon 0 05-02-2020 VITAMIN D 1,25-DIHYDROXY Canceled Normal [facility] ([place], [place]) Comment on above: Order Comment: TEST VITAMIN D 1,25-DIHYDROXY WAS CANCELLED, 05/02/2020 12:20 added per RN05/02/2020 12:20. Performed By: #### V TDDI ####[address] [place] [address] VITAMIN D, 25-HYDROXYon 04-20 VITAMIN D, 25-HYDROXY 33 ng/mL Normal [facility] ([place], [place]) Comment on above: Result Comment: . DEFICIENCY: < 20 NG/ML INSUFFICIENCY: 20-29 NG/ML SUFFICIENCY: 30-100 NG/ML THIS ASSAY ACCURATELY QUANTIFIES THE SUM OF VITAMIN D3, 25-HYDROXY AND VIT D2,25-HYDROXY. Performed By: #### C #### [address] [id number] Culture, urine Bacteria identified Cx Nom (U) Positive [facility] Work Phone: Bacteria identified Cx Nom (U) Escherichia coli [facility] Work Phone: Laboratory - Microbiology an d Antimicrobial susceptibility Bacteria identified Cx Nom (Bld) No growth in 5 days. [facility] Work Phone: Vital Signs Date Time Vital Sign Value Performing Clinician Facility 11-28-2024 11:17-0400 Body height 157.5 cm Basim Bang CNP Work Phone: [facility] 11-28-2024 11:17-0400 Body mass index (BMI) [Ratio] 27.65 kg/m2 Basim Bang CNP Work Phone: [facility] 11-28-2024 11:17-0400 Body weight 68.58 kg Basim Bang CNP Work Phone: [facility] 11-28-2024 11:17-0400 Diastolic blood pressure 92 mm[Hg] Basim Bang CNP Work Phone: [facility] 11-28-2024 11:17-0400 Heart rate 92 /min Basim Bang CNP Work Phone: [facility] 11-28-2024 11:17-0400 SaO2% (BldA) [Mass fraction] 99 % Basim Bang CNP Work Phone: [facility] 11-28-2024 11:17-0400 Systolic blood pressure 150 mm[Hg] Basim Bang CNP Work Phone: [facility] 11-28-2024 10:00-0400 Body mass index (BMI) [Ratio] 27.98 kg/m2 Dylon Gupta DISEASE EDUCATION SPECIALIST - PILL PACKER Work Phone: [facility] 11-28-2024 10:00-0400 Body weight 69.4 kg Dylon Gupta APRN - PILL PACKER Work Phone: [facility] 11-14-2024 09:18-0400 Diastolic blood pressure 98 mm[Hg] Dr. Amos Floyd MD Work Phone: [facility] 11-14-2024 09:18-0400 Systolic blood pressure 139 mm[Hg] Dr. Amos Floyd MD Work Phone: [facility] 11-14-2024 09:02-0400 Body height 157.[address] Amos Floyd MD Work Phone: [facility] 11-14-2024 09:02-0400 Body mass index (BMI) [Ratio] 27.2 kg/m2 Dr. Amos Floyd MD Work Phone: [facility] 11-14-2024 09:02-0400 Body weight 67.[address] Amos Floyd MD Work Phone: [facility] 11-14-2024 09:02-0400 Heart rate 81 /min Dr. Amos Floyd MD Work Phone: [facility] 11-14-2024 09:02-0400 Respiratory rate 16 /min Dr. Amos Floyd MD Work Phone: [facility] 10-31-2024 10:49-0400 Body height 157.5 cm Basim Bang PILL PACKER Work Phone: [facility] 10-31-2024 10:49-0400 Body mass index (BMI) [Ratio] 27.98 kg/m2 Basim Joel APRN - PILL PACKER Work Phone: [facility] 10-31-2024 10:49-0400 Body weight 69.4 kg Basim Wisam DISEASE EDUCATION SPECIALIST - PILL PACKER Work Phone: [facility] 10-31-2024 10:49-0400 Diastolic blood pressure 86 mm[Hg] Basimmoe Joel DISEASE EDUCATION SPECIALIST - PILL PACKER Work Phone: [facility] 10-31-2024 10:49-0400 Heart rate 96 /min Basim Wisam DISEASE EDUCATION SPECIALIST - PILL PACKER Work Phone: [facility] 10-31-2024 10:49-0400 SaO2% (BldA) [Mass fraction] 98 % Basim Wisam DISEASE EDUCATION SPECIALIST - PILL PACKER Work Phone: [facility] 10-31-2024 10:49-0400 Systolic blood pressure 132 mm[Hg] Basim Joel DISEASE EDUCATION SPECIALIST - PILL PACKER Work Phone: [facility] 10-29-2024 10:41-0400 Body mass index (BMI) [Ratio] 28.06 kg/m2 Amos Floyd MD Work Phone: [facility] 10-29-2024 10:41-0400 Body temperature 97.5 [degF] Amos Floyd MD Work Phone: [facility] 10-29-2024 10:41-0400 Body weight 69.6 kg Amos Floyd MD Work Phone: [facility] 10-29-2024 10:41-0400 Diastolic blood pressure 72 mm[Hg] Amos Floyd MD Work Phone: [facility] 10-29-2024 10:41-0400 Heart rate 60 /min Amos Floyd MD Work Phone: [facility] 10-29-2024 10:41-0400 Respiratory rate 20 /min Amos Floyd MD Work Phone: [facility] 10-29-2024 10:41-0400 Systolic blood pressure 112 mm[Hg] Amos Floyd MD Work Phone: [facility] 10-24-2024 11:00-0400 Diastolic blood pressure 116 mm[Hg] Memo Canas MD Work Phone: [facility] [employer] 10-24-2024 11:00-0400 Heart rate 93 /min Memo Canas MD Work Phone: [facility] 10-24-2024 11:00-0400 Respiratory rate 27 /min Memo Canas MD Work Phone: [facility] 10-24-2024 11:00-0400 SaO2% (BldA) [Mass fraction] 96 % Memo Canas MD Work Phone: [facility] [employer] 10-24-2024 11:00-0400 Systolic blood pressure 134 mm[Hg] Memo Canas MD Work Phone: [facility] 10-24-2024 09:00-0400 Body temperature 95.5 [degF] Memo Canas MD Work Phone: [facility] [employer] 10-24-2024 08:22-0400 Body height 157.5 cm Memo Canas MD Work Phone: [facility] [employer] 10-24-2024 08:22-0400 Body mass index (BMI) [Ratio] 26.7 kg/m2 Memo Canas MD Work Phone: [facility] [employer] 10-24-2024 08:22-0400 Body weight 66.22 kg Memo Canas MD Work Phone: [facility] [employer] [facility] 09-19-2024 14:57-0400 Body height 157.5 cm Basim Bang CNP Work Phone: [facility] [employer] 09-19-2024 14:57-0400 Body mass index (BMI) [Ratio] 29.26 kg/m2 Basim Bang CNP Work Phone: [facility] [employer] 09-19-2024 14:57-0400 Body weight 72.58 kg Basim Bang CNP Work Phone: [facility] [employer] 09-19-2024 14:57-0400 Diastolic blood pressure 84 mm[Hg] Basim Joel DISEASE EDUCATION SPECIALIST - PILL PACKER Work Phone: [facility] 09-19-2024 14:57-0400 Heart rate 90 /min Basim Joel DISEASE EDUCATION SPECIALIST - PILL PACKER Work Phone: [facility] 09-19-2024 14:57-0400 SaO2% (BldA) [Mass fraction] 100 % Basim Joel DISEASE EDUCATION SPECIALIST - PILL PACKER Work Phone: [facility] 09-19-2024 14:57-0400 Systolic blood pressure 115 mm[Hg] Basim Joel DISEASE EDUCATION SPECIALIST - PILL PACKER Work Phone: [facility] 09-19-2024 10:53-0400 Body height 157.5 cm Arelis Dusz DISEASE EDUCATION SPECIALIST.PILL PACKER Work Phone: [facility] 09-19-2024 10:53-0400 Body mass index (BMI) [Ratio] 28.35 kg/m2 Arelis Dusz DISEASE EDUCATION SPECIALIST.PILL PACKER Work Phone: [facility] 09-19-2024 10:53-0400 Body weight 70.31 kg Arelis Dusz DISEASE EDUCATION SPECIALIST.PILL PACKER Work Phone: [facility] 09-19-2024 10:53-0400 Diastolic blood pressure 76 mm[Hg] Arelis Dusz DISEASE EDUCATION SPECIALIST.PILL PACKER Work Phone: [facility] 09-19-2024 10:53-0400 Systolic blood pressure 124 mm[Hg] Arelis Dusz DISEASE EDUCATION SPECIALIST.PILL PACKER Work Phone: [facility] 09-03-2024 15:49-0400 Body height 157.5 cm Baldo De La Cruz MD Work Phone: [facility] 09-03-2024 15:49-0400 Body mass index (BMI) [Ratio] 28.55 kg/m2 Baldo De La Cruz MD Work Phone: [facility] 09-03-2024 15:49-0400 Body weight 70.8 kg Baldo De La Cruz MD Work Phone: [facility] 09-03-2024 15:49-0400 Diastolic blood pressure 86 mm[Hg] Baldo De La Cruz MD Work Phone: [facility] 09-03-2024 15:49-0400 Heart rate 98 /min Baldo De La Cruz MD Work Phone: [facility] 09-03-2024 15:49-0400 Systolic blood pressure 124 mm[Hg] Baldo De La Cruz MD Work Phone: [facility] 09-03-2024 15:29-0400 Body height 157.5 cm Memo Canas MD Work Phone: [facility] 09-03-2024 15:29-0400 Body mass index (BMI) [Ratio] 28.53 kg/m2 Memo Canas MD Work Phone: [facility] 09-03-2024 15:29-0400 Body weight 70.76 kg Memo Canas MD Work Phone: [facility] 09-03-2024 15:29-0400 Diastolic blood pressure 86 mm[Hg] Memo Canas MD Work Phone: [facility] 09-03-2024 15:29-0400 Heart rate 98 /min Memo Canas MD Work Phone: [facility] 09-03-2024 15:29-0400 Systolic blood pressure 124 mm[Hg] Memo Canas MD Work Phone: [facility] 08-29-2024 10:47-0400 Diastolic blood pressure 83 mm[Hg] Amos Floyd MD Work Phone: [facility] 08-29-2024 10:47-0400 Heart rate 71 /min Amos Floyd MD Work Phone: [facility] 08-29-2024 10:47-0400 Systolic blood pressure 135 mm[Hg] Amos Floyd MD Work Phone: [facility] 08-29-2024 10:36-0400 Body mass index (BMI) [Ratio] 28.79 kg/m2 Amos Floyd MD Work Phone: [facility] 08-29-2024 10:36-0400 Body weight 71.4 kg Amos Floyd MD Work Phone: [facility] 08-29-2024 10:36-0400 Respiratory rate 20 /min Amos Floyd MD Work Phone: [facility] 08-14-2024 11:28-0400 Body mass index (BMI) [Ratio] 28.71 kg/m2 Amos Floyd MD Work Phone: [facility] 08-14-2024 11:28-0400 Body temperature 98.2 [degF] Amos Floyd MD Work Phone: [facility] 08-14-2024 11:28-0400 Body weight 71.2 kg Amos Floyd MD Work Phone: [facility] 08-14-2024 11:28-0400 Diastolic blood pressure 64 mm[Hg] Amos Floyd MD Work Phone: [facility] 08-14-2024 11:28-0400 Heart rate 88 /min Amos Floyd MD Work Phone: [facility] 08-14-2024 11:28-0400 Respiratory rate 18 /min Amos Floyd MD Work Phone: [facility] 08-14-2024 11:28-0400 Systolic blood pressure 98 mm[Hg] Amos Floyd MD Work Phone: [facility] 08-09-2024 15:03-0400 Body temperature 97.3 [degF] Dr. Amos Floyd MD Work Phone: [facility] 08-09-2024 15:03-0400 Diastolic blood pressure 73 mm[Hg] Dr. Amos Floyd MD Work Phone: [facility] 08-09-2024 15:03-0400 Heart rate 93 /min Dr. Amos Floyd MD Work Phone: [facility] 08-09-2024 15:03-0400 Respiratory rate 18 /min Dr. Amos Floyd MD Work Phone: 9(274)375-097734 [place] [address] 08-09-2024 15:03-0400 SaO2% (BldA) [Mass fraction] 96 % Dr. Amos Floyd MD Work Phone: 9(965)777-429034 [place] [address] 08-09-2024 15:03-0400 Systolic blood pressure 112 mm[Hg] Dr. Amos Floyd MD Work Phone: 4(377)948-812134 [place] [address] 08-09-2024 05:31-0400 Body mass index (BMI) [Ratio] 29.5 kg/m2 Dr. Amos Floyd MD Work Phone: 3(310)498-574434 [place] [address] 08-09-2024 05:31-0400 Body weight 72.[address] Amos Floyd MD Work Phone: 6(104)912-709234 [place] [address] 08-08-2024 10:56-0400 Body height 157.[address] Amos Floyd MD Work Phone: 9(800)031-720134 [place] [address] 08-07-2024 21:30-0400 Diastolic blood pressure 88 mm[Hg] Dr. Amos Floyd MD Work Phone: 6(295)356-158834 [place] [address] 08-07-2024 21:30-0400 Heart rate 101 /min Dr. Amos Floyd MD Work Phone: 0(171)467-404934 [place] [address] 08-07-2024 21:30-0400 Respiratory rate 23 /min Dr. Amos Floyd MD Work Phone: 0(419)611-208234 [place] [address] 08-07-2024 21:30-0400 SaO2% (BldA) [Mass fraction] 98 % Dr. Amos Floyd MD Work Phone: 1(008)733-330234 [place] [address] 08-07-2024 21:30-0400 Systolic blood pressure 123 mm[Hg] Dr. Amos Floyd MD Work Phone: 7(740)851-089034 [place] [address] 08-07-2024 21:13-0400 Body temperature 98.4 [degF] Dr. Amos Floyd MD Work Phone: [facility] 08-07-2024 16:00-0400 Body mass index (BMI) [Ratio] 27.3 kg/m2 Dr. Amos Floyd MD Work Phone: [facility] 08-07-2024 16:00-0400 Body weight [address] Amos Floyd MD Work Phone: [facility] 08-07-2024 15:49-0400 Body height 157.[address] Amos Floyd MD Work Phone: 1(741)923-427555 [place] [address] 08-05-2024 07:22-0400 Body height 157.[address] Amos Floyd MD Work Phone: 8(527)074-725955 [place] [address] 08-05-2024 07:22-0400 Body weight 66.[address] Amos Floyd MD Work Phone: [facility] 08-01-2024 16:17-0400 Body mass index (BMI) [Ratio] 26.6 kg/m2 Dr. Amos Floyd MD Work Phone: [facility] 07-24-2024 10:50-0400 Body mass index (BMI) [Ratio] 26.53 kg/m2 Amos Floyd MD Work Phone: [facility] 07-24-2024 10:50-0400 Body weight 65.8 kg Amos Floyd MD Work Phone: [facility] 07-24-2024 10:50-0400 Diastolic blood pressure 82 mm[Hg] Amos Floyd MD Work Phone: [facility] 07-24-2024 10:50-0400 Heart rate 80 /min Amos Floyd MD Work Phone: [facility] 07-24-2024 10:50-0400 Respiratory rate 20 /min Amos Floyd MD Work Phone: [facility] 07-24-2024 10:50-0400 Systolic blood pressure 126 mm[Hg] Amos Floyd MD Work Phone: [facility] 07-23-2024 06:19-0400 Body mass index (BMI) [Ratio] 26.6 kg/m2 Dr. Amos Floyd MD Work Phone: [facility] 07-23-2024 06:19-0400 Body weight 66.[address] Amos Floyd MD Work Phone: [facility] 07-23-2024 06:19-0400 Diastolic blood pressure 93 mm[Hg] Dr. Amos Floyd MD Work Phone: 6(453)989-272934 [place] [address] 07-23-2024 06:19-0400 Heart rate 98 /min Dr. Amos Floyd MD Work Phone: [facility] 07-23-2024 06:19-0400 Respiratory rate 18 /min Dr. Amos Floyd MD Work Phone: 2(229)345-374134 [place] [address] 07-23-2024 06:19-0400 SaO2% (BldA) [Mass fraction] 100 % Dr. Amos Floyd MD Work Phone: 6(507)328-476334 [place] [address] 07-23-2024 06:19-0400 Systolic blood pressure 142 mm[Hg] Dr. Amos Floyd MD Work Phone: [facility] 04-29-2024 08:22-0400 Body mass index (BMI) [Ratio] 26.5 kg/m2 Dr. Amos Floyd MD Work Phone: [facility] 04-29-2024 08:22-0400 Body weight 65.[address] Amos Floyd MD Work Phone: 4(509)232-441634 [place] [address] 04-29-2024 08:22-0400 Diastolic blood pressure 91 mm[Hg] Dr. Amos Floyd MD Work Phone: 3(104)222-746078 [address] 04-29-2024 08:22-0400 Heart rate 97 /min Dr. Amos Floyd MD Work Phone: 4(436)905-533555 [place] [address] 04-29-2024 08:22-0400 Respiratory rate 18 /min Dr. Amos Floyd MD Work Phone: [facility] 04-29-2024 08:22-0400 SaO2% (BldA) [Mass fraction] 94 % Dr. Amos Floyd MD Work Phone: [facility] 04-29-2024 08:22-0400 Systolic blood pressure 123 mm[Hg] Dr. Amos Floyd MD Work Phone: [facility] 01-23-2024 10:10-0500 Body height 157.5 cm Amos Floyd MD Work Phone: [facility] 01-23-2024 10:10-0500 Body mass index (BMI) [Ratio] 26.01 kg/m2 Amos Floyd MD Work Phone: [facility] 01-23-2024 10:10-0500 Body temperature 97.5 [degF] Amos Floyd MD Work Phone: [facility] 01-23-2024 10:10-0500 Body weight 64.5 kg Amos Floyd MD Work Phone: [facility] 01-23-2024 10:10-0500 Diastolic blood pressure 76 mm[Hg] Amos Floyd MD Work Phone: [facility] 01-23-2024 10:10-0500 Heart rate 88 /min Amos Floyd MD Work Phone: [facility] 01-23-2024 10:10-0500 Respiratory rate 16 /min Amos Floyd MD Work Phone: [facility] 01-23-2024 10:10-0500 Systolic blood pressure 128 mm[Hg] Amos Floyd MD Work Phone: [facility] 09-19-2023 11:00-0400 Diastolic blood pressure 87 mm[Hg] Kole El PT Work Phone: [facility] 09-19-2023 11:00-0400 Heart rate 90 /min Kole Sienna PT Work Phone: [facility] 09-19-2023 11:00-0400 Systolic blood pressure 131 mm[Hg] Kole Sienna PT Work Phone: [facility] 09-12-2023 11:00-0400 Diastolic blood pressure 81 mm[Hg] Kole Sienna PT Work Phone: [facility] 09-12-2023 11:00-0400 Heart rate 99 /min Kole Sienna PT Work Phone: [facility] 09-12-2023 11:00-0400 Systolic blood pressure 126 mm[Hg] Kole Sienna PT Work Phone: [facility] 09-08-2023 14:00-0400 Diastolic blood pressure 79 mm[Hg] Kole Sienna PT Work Phone: [facility] 09-08-2023 14:00-0400 Heart rate 98 /min Kole Sienna PT Work Phone: [facility] 09-08-2023 14:00-0400 Systolic blood pressure 115 mm[Hg] Kole Sienna PT Work Phone: [facility] 08-30-2023 14:00-0400 Diastolic blood pressure 79 mm[Hg] Kole Sienna PT Work Phone: [facility] 08-30-2023 14:00-0400 Heart rate 79 /min Kole Sienna PT Work Phone: [facility] 08-30-2023 14:00-0400 Systolic blood pressure 115 mm[Hg] Kole Sienna PT Work Phone: [facility] 08-21-2023 11:00-0400 Diastolic blood pressure 83 mm[Hg] Gisel Kaspakoba MANAGEMENT ANALYST Work Phone: [facility] 08-21-2023 11:00-0400 Heart rate 81 /min Gisel Kashuba MANAGEMENT ANALYST Work Phone: [facility] 08-21-2023 11:00-0400 Systolic blood pressure 118 mm[Hg] Gisel Juliohuba MANAGEMENT ANALYST Work Phone: [facility] 08-09-2023 09:00-0400 Diastolic blood pressure 87 mm[Hg] Koleberny MoralesSienna PT Work Phone: [facility] 08-09-2023 09:00-0400 Heart rate 78 /min Kole Sienna PT Work Phone: [facility] 08-09-2023 09:00-0400 Systolic blood pressure 139 mm[Hg] Kole Sienna PT Work Phone: [facility] 08-02-2023 09:00-0400 Diastolic blood pressure 100 mm[Hg] Kole Sienna PT Work Phone: [facility] Comment on above: Right when entering clinic upon sitting. 08-02-2023 09:00-0400 Heart rate 77 /min Kole Sienna PT Work Phone: [facility] 08-02-2023 09:00-0400 Systolic blood pressure 155 mm[Hg] Kole Sienna PT Work Phone: [facility] Comment on above: Right when entering clinic upon sitting. 07-19-2023 09:00-0400 Diastolic blood pressure 108 mm[Hg] Kole Sienna PT Work Phone: [facility] Comment on above: Resting. 07-19-2023 09:00-0400 Heart rate 85 /min Kole Sienna PT Work Phone: [facility] 07-19-2023 09:00-0400 Systolic blood pressure 164 mm[Hg] Okle Sienna PT Work Phone: [facility] Comment on above: Resting. 07-05-2023 09:00-0400 Diastolic blood pressure 115 mm[Hg] Kole Sienna PT Work Phone: [facility] Comment on above: Measured 3 times automatically and then once manually with measurements around the same. 07-05-2023 09:00-0400 Heart rate 92 /min Kole Sienna PT Work Phone: [facility] 07-05-2023 09:00-0400 Systolic blood pressure 170 mm[Hg] Kole Sienna PT Work Phone: [facility] Comment on above: Measured 3 times automatically and then once manually with measurements around the same. 06-30-2023 09:39-0400 Body mass index (BMI) [Ratio] 25.61 kg/m2 Amos Floyd MD Work Phone: [facility] 06-30-2023 09:39-0400 Body weight 63.5 kg Amos Floyd MD Work Phone: [facility] 06-30-2023 09:39-0400 Diastolic blood pressure 100 mm[Hg] Amos Floyd MD Work Phone: [facility] 06-30-2023 09:39-0400 Heart rate 78 /min Amos Floyd MD Work Phone: [facility] 06-30-2023 09:39-0400 Respiratory rate 16 /min Amos Floyd MD Work Phone: [facility] 06-30-2023 09:39-0400 Systolic blood pressure 164 mm[Hg] Amos Floyd MD Work Phone: [facility] 06-28-2023 11:00-0400 Diastolic blood pressure 96 mm[Hg] Kole Sienna PT Work Phone: [facility] Comment on above: At beginning of session. 06-28-2023 11:00-0400 Heart rate 85 /min Koleberny MoralesSienna PT Work Phone: [facility] 06-28-2023 11:00-0400 Systolic blood pressure 144 mm[Hg] Kole Sienna PT Work Phone: [facility] Comment on above: At beginning of session. 06-21-2023 13:00-0400 Diastolic blood pressure 99 mm[Hg] Kole Sienna PT Work Phone: [facility] 06-21-2023 13:00-0400 Heart rate 86 /min Koleberny MoralesSienna PT Work Phone: [facility] 06-21-2023 13:00-0400 Systolic blood pressure 150 mm[Hg] Kole El PT Work Phone: [facility] 06-14-2023 11:00-0400 Diastolic blood pressure 106 mm[Hg] Kole El PT Work Phone: [facility] Comment on above: Initial. 06-14-2023 11:00-0400 Heart rate 87 /min Kole El PT Work Phone: [facility] 06-14-2023 11:00-0400 SaO2% (BldA) [Mass fraction] 98 % Kole El PT Work Phone: [facility] 06-14-2023 11:00-0400 Systolic blood pressure 157 mm[Hg] Kole El PT Work Phone: [facility] Comment on above: Initial. 05-31-2023 15:33-0400 Diastolic blood pressure 77 mm[Hg] Dr. Amos lFoyd Work Phone: [facility] 05-31-2023 15:33-0400 Heart rate 81 /min Dr. Amos Floyd Work Phone: [facility] 05-31-2023 15:33-0400 Systolic blood pressure 134 mm[Hg] Dr. Amos Floyd Work Phone: [facility] 05-31-2023 14:22-0400 Body height 157.[address] Amos Floyd Work Phone: [facility] 05-31-2023 14:22-0400 Body mass index (BMI) [Ratio] 25.6 kg/m2 Dr. Amos Floyd Work Phone: [facility] 05-31-2023 14:22-0400 Body temperature 97 [degF] Dr. Amos Floyd Work Phone: [facility] 05-31-2023 14:22-0400 Body weight 63.[address] Amos Floyd Work Phone: [facility] 05-31-2023 14:22-0400 Respiratory rate 14 /min Dr. Amos Floyd Work Phone: [facility] 05-31-2023 14:22-0400 SaO2% (BldA) [Mass fraction] 99 % Dr. Amos Floyd Work Phone: [facility] 05-31-2023 11:12-0400 Body temperature 97.11 [degF] Rocio Fide DISEASE EDUCATION SPECIALIST.PILL PACKER Work Phone: [facility] 05-31-2023 11:12-0400 Body weight 64.41 kg Rocio Fide DISEASE EDUCATION SPECIALIST.PILL PACKER Work Phone: [facility] 05-31-2023 11:12-0400 Diastolic blood pressure 71 mm[Hg] Rocio Fide DISEASE EDUCATION SPECIALIST.PILL PACKER Work Phone: [facility] 05-31-2023 11:12-0400 Heart rate 112 /min Rocio Fied DISEASE EDUCATION SPECIALIST.PILL PACKER Work Phone: [facility] 05-31-2023 11:12-0400 Respiratory rate 14 /min Rocio Fide DISEASE EDUCATION SPECIALIST.PILL PACKER Work Phone: [facility] 05-31-2023 11:12-0400 SaO2% (BldA) [Mass fraction] 97 % Rocio Fide DISEASE EDUCATION SPECIALIST.PILL PACKER Work Phone: [facility] 05-31-2023 11:12-0400 Systolic blood pressure 102 mm[Hg] Rocio Fide DISEASE EDUCATION SPECIALIST.PILL PACKER Work Phone: [facility] [facility] 05-26-2023 11:11-0400 Body temperature 97.7 [degF] Elisa Mcdonough MD Work Phone: [facility] 05-26-2023 11:11-0400 Diastolic blood pressure 72 mm[Hg] Elisa Mcdonough MD Work Phone: [facility] 05-26-2023 11:11-0400 Heart rate 92 /min Elisa Mcdonough MD Work Phone: [facility] 05-26-2023 11:11-0400 Respiratory rate 17 /min Elisa Mcdonough MD Work Phone: [facility] 05-26-2023 11:11-0400 SaO2% (BldA) [Mass fraction] 94 % Elisa Mcdonough MD Work Phone: [facility] 05-26-2023 11:11-0400 Systolic blood pressure 106 mm[Hg] Elisa Mcdonough MD Work Phone: [facility] 05-24-2023 01:41-0400 Body height 157.5 cm Elisa Mcdonough MD Work Phone: [facility] 05-24-2023 01:41-0400 Body mass index (BMI) [Ratio] 25.85 kg/m2 Elisa Mcdonough MD Work Phone: [facility] 05-24-2023 01:41-0400 Body weight 64.1 kg Elisa Mcdonough MD Work Phone: [facility] 05-24-2023 00:20-0400 Body temperature 97.4 [degF] Dr. Amos Floyd Work Phone: [facility] 05-24-2023 00:20-0400 Diastolic blood pressure 91 mm[Hg] Dr. Amos Floyd Work Phone: [facility] 05-24-2023 00:20-0400 Heart rate 81 /min Dr. Amos Floyd Work Phone: [facility] 05-24-2023 00:20-0400 Respiratory rate 15 /min Dr. Amos Floyd Work Phone: [facility] 05-24-2023 00:20-0400 SaO2% (BldA) [Mass fraction] 96 % Dr. Amos Floyd Work Phone: [facility] 05-24-2023 00:20-0400 Systolic blood pressure 138 mm[Hg] Dr. Amos Floyd Work Phone: [facility] 05-23-2023 20:02-0400 Body height 157.[address] Amos Floyd Work Phone: [facility] 05-23-2023 20:02-0400 Body mass index (BMI) [Ratio] 25.8 kg/m2 Dr. Amos Floyd Work Phone: [facility] 05-23-2023 20:02-0400 Body weight 64.[address] Amos Floyd Work Phone: [facility] 05-23-2023 12:18-0400 Body weight 63.5 kg Rocio Elizalde DISEASE EDUCATION SPECIALIST.[employer]ER Work Phone: [facility] 05-23-2023 12:18-0400 Diastolic blood pressure 82 mm[Hg] Rocio VivasFide DISEASE EDUCATION SPECIALIST.[employer] P[employer]ER Work Phone: [facility] 05-23-2023 12:18-0400 Heart rate 72 /min Rocio VivasFide DISEASE EDUCATION SPECIALIST.[employer] P[employer]ER Work Phone: [facility] 05-23-2023 12:18-0400 Respiratory rate 14 /min Rocio Elizalde DISEASE EDUCATION SPECIALIST.[employer]ER Work Phone: [facility] 05-23-2023 12:18-0400 SaO2% (BldA) [Mass fraction] 96 % Rocio VivasFide DISEASE EDUCATION SPECIALIST.[employer] P[employer]ER Work Phone: [facility] 05-23-2023 12:18-0400 Systolic blood pressure 106 mm[Hg] Rocio VivasFide DISEASE EDUCATION SPECIALIST.PI[employer] P[employer]ER Work Phone: [facility] 05-15-2023 22:30-0400 Body temperature 98.1 [degF] Dr. Amos Floyd Work Phone: [facility] 05-15-2023 22:30-0400 Diastolic blood pressure 86 mm[Hg] Dr. Amos Floyd Work Phone: [facility] 05-15-2023 22:30-0400 Heart rate 74 /min Dr. Amos Floyd Work Phone: 9(021)748-923834 [place] [address] 05-15-2023 22:30-0400 Respiratory rate 16 /min Dr. Amos Floyd Work Phone: 1(129)457-037634 [place] [address] 05-15-2023 22:30-0400 SaO2% (BldA) [Mass fraction] 98 % Dr. Amos Floyd Work Phone: 5(310)467-625734 [place] [address] 05-15-2023 22:30-0400 Systolic blood pressure 146 mm[Hg] Dr. Amos Floyd Work Phone: 1(611)161-309134 [place] [address] 05-15-2023 14:44-0400 Body height 157.[address] Amos Floyd Work Phone: 6(130)249-738734 [place] [address] 05-15-2023 14:44-0400 Body mass index (BMI) [Ratio] 26 kg/m2 Dr. Amos Floyd Work Phone: 0(921)379-594634 [place] [address] 05-15-2023 14:44-0400 Body weight 64.[address] Amos Floyd Work Phone: 8(343)637-707834 [place] [address] 03-03-2023 08:55-0500 Body height 157.[address] Amos Floyd Work Phone: 9(926)986-001034 [place] [address] 03-03-2023 08:55-0500 Body mass index (BMI) [Ratio] 26.3 kg/m2 Dr. Amos Floyd Work Phone: 3(160)899-693034 [place] [address] 03-03-2023 08:55-0500 Body weight 65.[address] Amos Floyd Work Phone: 8(068)175-847834 [place] [address] 03-03-2023 08:55-0500 Diastolic blood pressure 76 mm[Hg] Dr. Amos Floyd Work Phone: 1(176)809-993434 [place] [address] 03-03-2023 08:55-0500 Heart rate 86 /min Dr. Amos Floyd Work Phone: 2(411)100-292334 [place] [address] 03-03-2023 08:55-0500 Respiratory rate 18 /min Dr. Amos Floyd Work Phone: [facility] 03-03-2023 08:55-0500 SaO2% (BldA) [Mass fraction] 99 % Dr. Amos Floyd Work Phone: [facility] 03-03-2023 08:55-0500 Systolic blood pressure 115 mm[Hg] Dr. Amos Floyd Work Phone: [facility] 01-19-2023 12:57-0500 Body height 159 cm Amos Floyd MD Work Phone: [facility] 01-19-2023 12:57-0500 Body weight 64.41 kg Amos Floyd MD Work Phone: [facility] 01-19-2023 12:57-0500 Diastolic blood pressure 66 mm[Hg] Amos Floyd MD Work Phone: [facility] 01-19-2023 12:57-0500 Heart rate 88 /min Amos Floyd MD Work Phone: [facility] 01-19-2023 12:57-0500 Respiratory rate 16 /min Amos Floyd MD Work Phone: [facility] 01-19-2023 12:57-0500 Systolic blood pressure 110 mm[Hg] Amos Floyd MD Work Phone: [facility] 11-25-2022 13:20-0400 Body height 157.[address] Amos Floyd Work Phone: [facility] 11-25-2022 13:20-0400 Body temperature 97.4 [degF] Dr. Amos Floyd Work Phone: [facility] 11-25-2022 13:20-0400 Diastolic blood pressure 91 mm[Hg] Dr. Amos Floyd Work Phone: [facility] 11-25-2022 13:20-0400 Heart rate 75 /min Dr. Amos Floyd Work Phone: 1(032)124-035734 [place] [address] 11-25-2022 13:20-0400 Respiratory rate 16 /min Dr. Amos Floyd Work Phone: 0(853)287-565434 [place] [address] 11-25-2022 13:20-0400 SaO2% (BldA) [Mass fraction] 99 % Dr. Amos Floyd Work Phone: 2(199)519-304934 [place] [address] 11-25-2022 13:20-0400 Systolic blood pressure 131 mm[Hg] Dr. Amos Floyd Work Phone: 4(350)796-716934 [place] [address] 11-24-2022 13:49-0400 Body mass index (BMI) [Ratio] 26.2 kg/m2 Dr. Amos Floyd Work Phone: 4(710)112-995934 [place] [address] 11-24-2022 13:49-0400 Body temperature 97.6 [degF] Dr. Amos Floyd Work Phone: 9(604)317-849934 [place] [address] 11-24-2022 13:49-0400 Body weight 64.[address] Amos Floyd Work Phone: 3(447)320-172134 [place] [address] 11-24-2022 13:49-0400 Diastolic blood pressure 74 mm[Hg] Dr. Amos Floyd Work Phone: 8(735)198-222434 [place] [address] 11-24-2022 13:49-0400 Heart rate 70 /min Dr. Amos Floyd Work Phone: 1(487)539-238634 [place] [address] 11-24-2022 13:49-0400 Respiratory rate 16 /min Dr. Amos Floyd Work Phone: 1(601)816-257334 [place] [address] 11-24-2022 13:49-0400 SaO2% (BldA) [Mass fraction] 97 % Dr. Amos Floyd Work Phone: 3(831)154-280334 [place] [address] 11-24-2022 13:49-0400 Systolic blood pressure 112 mm[Hg] Dr. Amos Floyd Work Phone: 8(640)239-516134 [place] [address] 11-08-2022 10:48-0400 Body temperature 97.5 [degF] Jacinda Enriquez DISEASE EDUCATION SPECIALIST.[employer]ER Work Phone: [facility] 11-08-2022 10:48-0400 Body weight 63.32 kg Jacinda Enriquez DISEASE EDUCATION SPECIALIST.[employer]ER Work Phone: [facility] 11-08-2022 10:48-0400 Diastolic blood pressure 86 mm[Hg] Jacinda Enriquez DISEASE EDUCATION SPECIALIST.PI[employer] P[employer]ER Work Phone: [facility] 11-08-2022 10:48-0400 Heart rate 78 /min Jacinda Enriquez DISEASE EDUCATION SPECIALIST.[employer] P[employer]ER Work Phone: [facility] 11-08-2022 10:48-0400 Respiratory rate 20 /min Jacinda Enriquez DISEASE EDUCATION SPECIALIST.[employer] P[employer]ER Work Phone: [facility] 11-08-2022 10:48-0400 SaO2% (BldA) [Mass fraction] 98 % Jacinda Enriquez DISEASE EDUCATION SPECIALIST.PI[employer] P[employer]ER Work Phone: [facility] 11-08-2022 10:48-0400 Systolic blood pressure 128 mm[Hg] Jacinda Enriquez DISEASE EDUCATION SPECIALIST.PI[employer] P[employer]ER Work Phone: [facility] 08-04-2022 13:18-0400 Body height 157.[address] Amos Floyd Work Phone: [facility] 08-04-2022 13:18-0400 Body mass index (BMI) [Ratio] 26.2 kg/m2 Dr. Amos Floyd Work Phone: [facility] 08-04-2022 13:18-0400 Body weight 64.[address] Amos Floyd Work Phone: [facility] 08-04-2022 13:18-0400 Diastolic blood pressure 82 mm[Hg] Dr. Amos Floyd Work Phone: [facility] 08-04-2022 13:18-0400 Heart rate 79 /min Dr. Amos Floyd Work Phone: [facility] 08-04-2022 13:18-0400 Respiratory rate 18 /min Dr. Amos Floyd Work Phone: [facility] 08-04-2022 13:18-0400 SaO2% (BldA) [Mass fraction] 98 % Dr. Amos Floyd Work Phone: [facility] 08-04-2022 13:18-0400 Systolic blood pressure 122 mm[Hg] Dr. Amos Floyd Work Phone: [facility] 07-20-2022 10:17-0400 Diastolic blood pressure 66 mm[Hg] Rocio Older DISEASE EDUCATION SPECIALIST.PI[employer] P[employer]ER Work Phone: [facility] 07-20-2022 10:17-0400 Systolic blood pressure 102 mm[Hg] Rocio Older DISEASE EDUCATION SPECIALIST.PI[employer] P[employer]ER Work Phone: [facility] 07-20-2022 10:01-0400 Body weight 63.05 kg Rocio Older DISEASE EDUCATION SPECIALIST.[employer] P[employer]ER Work Phone: [facility] 07-20-2022 10:01-0400 Heart rate 96 /min Rocio Older DISEASE EDUCATION SPECIALIST.PI[employer] P[employer]ER Work Phone: [facility] 07-20-2022 10:01-0400 Respiratory rate 16 /min Rocio Older DISEASE EDUCATION SPECIALIST.PI[employer] P[employer]ER Work Phone: [facility] 05-27-2022 12:58-0400 Body height 157.[address] Amos Floyd Work Phone: [facility] 05-27-2022 12:58-0400 Body temperature 96.4 [degF] Dr. Amos Floyd Work Phone: [facility] 05-27-2022 12:58-0400 Diastolic blood pressure 93 mm[Hg] Dr. Amos Floyd Work Phone: [facility] 05-27-2022 12:58-0400 Heart rate 78 /min Dr. Amos Floyd Work Phone: [facility] 05-27-2022 12:58-0400 Respiratory rate 16 /min Dr. Amos Floyd Work Phone: 9(116)930-918655 [place] [address] 05-27-2022 12:58-0400 SaO2% (BldA) [Mass fraction] 99 % Dr. Amos Floyd Work Phone: 3(042)792-676934 [place] [address] 05-27-2022 12:58-0400 Systolic blood pressure 152 mm[Hg] Dr. Amos Floyd Work Phone: 2(282)719-637134 [place] [address] 01-25-2022 11:33-0500 Body height 157.[address] Amos Floyd Work Phone: 6(238)758-676334 [place] [address] 01-25-2022 11:33-0500 Body mass index (BMI) [Ratio] 25.9 kg/m2 Dr. Amos Floyd Work Phone: 9(550)162-276534 [place] [address] 01-25-2022 11:33-0500 Body weight 64.[address] Amos Floyd Work Phone: 1(841)107-638134 [place] [address] 01-25-2022 11:33-0500 Diastolic blood pressure 91 mm[Hg] Dr. Amos Floyd Work Phone: 5(293)973-781234 [place] [address] 01-25-2022 11:33-0500 Heart rate 92 /min Dr. Amos Floyd Work Phone: 3(840)933-224534 [place] [address] 01-25-2022 11:33-0500 Respiratory rate 18 /min Dr. Amos Floyd Work Phone: 9(391)099-008734 [place] [address] 01-25-2022 11:33-0500 SaO2% (BldA) [Mass fraction] 99 % Dr. Amos Floyd Work Phone: 8(927)080-705834 [place] [address] 01-25-2022 11:33-0500 Systolic blood pressure 128 mm[Hg] Dr. Amos Floyd Work Phone: 9(737)733-042234 [place] [address] 12-20-2021 09:16-0400 Diastolic blood pressure 100 mm[Hg] Rocio Johnson APRN.CNP Work Phone: 9(413)242-449235 [place] [address] 12-20-2021 09:16-0400 Systolic blood pressure 154 mm[Hg] Rocio Older DISEASE EDUCATION SPECIALIST.PI[employer] P[employer]ER Work Phone: [facility] 12-20-2021 08:50-0400 Body height 156 cm Rocio Older DISEASE EDUCATION SPECIALIST.PI[employer] P[employer]ER Work Phone: [facility] 12-20-2021 08:50-0400 Body weight 64.41 kg Rocio Older DISEASE EDUCATION SPECIALIST.PI[employer] P[employer]ER Work Phone: [facility] 12-20-2021 08:50-0400 Heart rate 96 /min Rocio Older DISEASE EDUCATION SPECIALIST.PI[employer] P[employer]ER Work Phone: [facility] 12-20-2021 08:50-0400 Respiratory rate 16 /min Rocio Older DISEASE EDUCATION SPECIALIST.PI[employer] P[employer]ER Work Phone: [facility] 12-13-2021 09:14-0400 Body height 157.[address] Amos Floyd Work Phone: [facility] Work Phone: 12-13-2021 09:13-0400 Body mass index (BMI) [Ratio] 25.7 kg/m2 Dr. Amos Floyd Work Phone: [facility] 12-13-2021 09:13-0400 Body weight 63.[address] Amos Floyd Work Phone: [facility] 12-13-2021 09:13-0400 Diastolic blood pressure 95 mm[Hg] Dr. Amos Floyd Work Phone: [facility] 12-13-2021 09:13-0400 Heart rate 80 /min Dr. Amos Floyd Work Phone: [facility] 12-13-2021 09:13-0400 Respiratory rate 18 /min Dr. Amos Floyd Work Phone: [facility] 12-13-2021 09:13-0400 SaO2% (BldA) [Mass fraction] 99 % Dr. Amos Floyd Work Phone: [facility] 12-13-2021 09:13-0400 Systolic blood pressure 146 mm[Hg] Dr. Amos Floyd Work Phone: [facility] 12-06-2021 14:34-0400 Body temperature 97.5 [degF] Amos Floyd MD Work Phone: [facility] 12-06-2021 14:34-0400 Body weight 62.6 kg Amos Floyd MD Work Phone: [facility] 12-06-2021 14:34-0400 Diastolic blood pressure 86 mm[Hg] Amos Floyd MD Work Phone: [facility] 12-06-2021 14:34-0400 Heart rate 84 /min Amos Floyd MD Work Phone: [facility] 12-06-2021 14:34-0400 Respiratory rate 20 /min Amos Floyd MD Work Phone: [facility] 12-06-2021 14:34-0400 Systolic blood pressure 126 mm[Hg] Amos Floyd MD Work Phone: [facility] 12-02-2021 13:34-0400 Body mass index (BMI) [Ratio] 25.9 kg/m2 Dr. Amos Floyd Work Phone: [facility] 12-02-2021 13:34-0400 Body temperature 94.6 [degF] Dr. Amos Floyd Work Phone: [facility] 12-02-2021 13:34-0400 Body weight 64.[address] Amos Floyd Work Phone: [facility] 12-02-2021 13:34-0400 Diastolic blood pressure 104 mm[Hg] Dr. Amos Floyd Work Phone: [facility] 12-02-2021 13:34-0400 Heart rate 79 /min Dr. Amos Floyd Work Phone: [facility] 12-02-2021 13:34-0400 Respiratory rate 16 /min Dr. Amos Floyd Work Phone: 8(955)417-007755 [place] [address] 12-02-2021 13:34-0400 SaO2% (BldA) [Mass fraction] 95 % Dr. Amos Floyd Work Phone: 6(232)017-060755 [place] [address] 12-02-2021 13:34-0400 Systolic blood pressure 158 mm[Hg] Dr. Amos Floyd Work Phone: 9(709)229-050234 [place] [address] 11-26-2021 13:15-0400 Body height 157.[address] Amos Floyd Work Phone: 2(522)386-225555 [place] [address] Work Phone: 11-26-2021 13:15-0400 Body temperature 97.8 [degF] Dr. Amos Floyd Work Phone: 2(074)740-653234 [place] [address] 11-26-2021 13:15-0400 Diastolic blood pressure 88 mm[Hg] Dr. Amos Floyd Work Phone: 8(596)926-250234 [place] [address] 11-26-2021 13:15-0400 Heart rate 79 /min Dr. Amos Floyd Work Phone: 0(938)649-961234 [place] [address] 11-26-2021 13:15-0400 Respiratory rate 16 /min Dr. Amos Floyd Work Phone: 7(301)281-301934 [place] [address] 11-26-2021 13:15-0400 SaO2% (BldA) [Mass fraction] 98 % Dr. Amos Floyd Work Phone: 0(499)728-088255 [place] [address] 11-26-2021 13:15-0400 Systolic blood pressure 144 mm[Hg] Dr. Amos Floyd Work Phone: 8(807)159-664134 [place] [address] 11-18-2021 08:00-0400 Body temperature 98.2 [degF] Dr. Amos Floyd Work Phone: 1(082)130-524434 [place] [address] Work Phone: 11-18-2021 08:00-0400 Diastolic blood pressure 77 mm[Hg] Dr. Amos Floyd Work Phone: 0(704)365-339455 [place] [address] Work Phone: 11-18-2021 08:00-0400 Heart rate 72 /min Dr. Amos Floyd Work Phone: [facility] Work Phone: 11-18-2021 08:00-0400 Respiratory rate 18 /min Dr. Amos Floyd Work Phone: [facility] Work Phone: 11-18-2021 08:00-0400 SaO2% (BldA) [Mass fraction] 98 % Dr. Amos Floyd Work Phone: [facility] Work Phone: 11-18-2021 08:00-0400 Systolic blood pressure 112 mm[Hg] Dr. Amos Floyd Work Phone: [facility] Work Phone: 11-18-2021 05:55-0400 Body weight 63.[address] Amos Floyd Work Phone: [facility] Work Phone: 11-17-2021 10:20-0400 Body height 157.[address] Amos Floyd Work Phone: [facility] Work Phone: 11-17-2021 05:24-0400 Body weight 63.2 kg [facility] Work Phone: 11-17-2021 04:00-0400 Heart rate 83 /min [facility] Work Phone: 11-17-2021 01:25-0400 Body height 157.48 cm [facility] Work Phone: 11-17-2021 01:25-0400 Body mass index (BMI) [Ratio] 25.4 kg/m2 [facility] Work Phone: 11-17-2021 00:51-0400 Body temperature 98.1 [degF] [facility] Work Phone: 11-17-2021 00:51-0400 Diastolic blood pressure 63 mm[Hg] [facility] Work Phone: 11-17-2021 00:51-0400 Respiratory rate 25 /min [facility] Work Phone: 11-17-2021 00:51-0400 SaO2% (BldA) [Mass fraction] 96 % [facility] Work Phone: 11-17-2021 00:51-0400 Systolic blood pressure 84 mm[Hg] [facility] Work Phone: 10-20-2021 22:49-0400 Body mass index (BMI) [Ratio] 23 kg/m2 [facility] Work Phone: 10-13-2021 13:48-0400 Body temperature 98.71 [degF] Irene Praisler-Wood DISEASE EDUCATION SPECIALIST.PI[employer] P[employer]ER Work Phone: [facility] 10-13-2021 13:48-0400 Body weight 62.51 kg Irene Praisler-Wood DISEASE EDUCATION SPECIALIST.PI[employer] P[employer]ER Work Phone: [facility] 10-13-2021 13:48-0400 Diastolic blood pressure 84 mm[Hg] Irene Praisler-Wood DISEASE EDUCATION SPECIALIST.PI[employer] P[employer]ER Work Phone: [facility] 10-13-2021 13:48-0400 Heart rate 111 /min Irene Praisler-Wood DISEASE EDUCATION SPECIALIST.PI[employer] P[employer]ER Work Phone: [facility] 10-13-2021 13:48-0400 Respiratory rate 18 /min Irene Praisler-Wood DISEASE EDUCATION SPECIALIST.PI[employer] P[employer]ER Work Phone: [facility] 10-13-2021 13:48-0400 SaO2% (BldA) [Mass fraction] 97 % Irene Praisler-Wood DISEASE EDUCATION SPECIALIST.PILL P[employer]ER Work Phone: [facility] 10-13-2021 13:48-0400 Systolic blood pressure 124 mm[Hg] Irene Praisler-Wood DISEASE EDUCATION SPECIALIST.PI[employer] P[employer]ER Work Phone: [facility] 09-19-2021 02:13-0400 Body mass index (BMI) [Ratio] 23 kg/m2 Dr. Amos Floyd Work Phone: [facility] Work Phone: 08-20-2021 06:53-0400 Body mass index (BMI) [Ratio] 23 kg/m2 Dr. Amos Floyd Work Phone: [facility] Work Phone: 07-20-2021 20:34-0400 Body mass index (BMI) [Ratio] 23 kg/m2 Dr. Amos Floyd Work Phone: [facility] Work Phone: 07-20-2021 09:20-0400 Body temperature 97.11 [degF] Amos Floyd MD Work Phone: [facility] 07-20-2021 09:20-0400 Body weight 62.6 kg Amos Floyd MD Work Phone: [facility] 07-20-2021 09:20-0400 Diastolic blood pressure 68 mm[Hg] Amos Floyd MD Work Phone: [facility] 07-20-2021 09:20-0400 Heart rate 72 /min Amos Floyd MD Work Phone: [facility] 07-20-2021 09:20-0400 Respiratory rate 16 /min Amos Floyd MD Work Phone: [facility] 07-20-2021 09:20-0400 Systolic blood pressure 114 mm[Hg] Amos Floyd MD Work Phone: [facility] 07-12-2021 11:22-0400 Body height 157.[address] Amos Floyd Work Phone: [facility] Work Phone: 07-12-2021 11:22-0400 Body mass index (BMI) [Ratio] 25.6 kg/m2 Dr. Amos Floyd Work Phone: [facility] Work Phone: 07-12-2021 11:22-0400 Body weight 63.[address] Amos Floyd Work Phone: [facility] Work Phone: 07-12-2021 11:22-0400 Diastolic blood pressure 88 mm[Hg] Dr. Amos Floyd Work Phone: [facility] Work Phone: 07-12-2021 11:22-0400 Heart rate 74 /min Dr. Amos Floyd Work Phone: [facility] Work Phone: 07-12-2021 11:22-0400 Respiratory rate 18 /min Dr. Amos Floyd Work Phone: [facility] Work Phone: 07-12-2021 11:22-0400 SaO2% (BldA) [Mass fraction] 98 % Dr. Amos Floyd Work Phone: [facility] Work Phone: 07-12-2021 11:22-0400 Systolic blood pressure 129 mm[Hg] Dr. Amos Floyd Work Phone: [facility] Work Phone: 07-12-2021 11:22-0400 Body height 157.[address] Amos Floyd Work Phone: [facility] Work Phone: 07-12-2021 11:22-0400 Body mass index (BMI) [Ratio] 25.6 kg/m2 Dr. Amos Floyd Work Phone: [facility] Work Phone: 07-12-2021 11:22-0400 Body weight 63.[address] Amos Floyd Work Phone: [facility] Work Phone: 07-12-2021 11:22-0400 Diastolic blood pressure 88 mm[Hg] Dr. Amos Floyd Work Phone: [facility] Work Phone: 07-12-2021 11:22-0400 Heart rate 74 /min Dr. Amos Floyd Work Phone: [facility] Work Phone: 07-12-2021 11:22-0400 Respiratory rate 18 /min Dr. Amos Floyd Work Phone: [facility] Work Phone: 07-12-2021 11:22-0400 SaO2% (BldA) [Mass fraction] 98 % Dr. Amos Floyd Work Phone: [facility] Work Phone: 07-12-2021 11:22-0400 Systolic blood pressure 129 mm[Hg] Dr. Amos Floyd Work Phone: [facility] Work Phone: 06-20-2021 03:20-0400 Body mass index (BMI) [Ratio] 23 kg/m2 Dr. Amos Floyd Work Phone: [facility] Work Phone: 05-27-2021 12:45-0400 Body height 157.[address] Amos Floyd Work Phone: [facility] Work Phone: 05-27-2021 12:45-0400 Body mass index (BMI) [Ratio] 25.6 kg/m2 Dr. Amos Floyd Work Phone: [facility] Work Phone: 05-27-2021 12:45-0400 Body temperature 97.1 [degF] Dr. Amos Floyd Work Phone: [facility] Work Phone: 05-27-2021 12:45-0400 Body weight 63.[address] Amos Floyd Work Phone: [facility] Work Phone: 05-27-2021 12:45-0400 Diastolic blood pressure 92 mm[Hg] Dr. Amos Floyd Work Phone: [facility] Work Phone: 05-27-2021 12:45-0400 Heart rate 89 /min Dr. Amos Floyd Work Phone: [facility] Work Phone: 05-27-2021 12:45-0400 Respiratory rate 12 /min Dr. Amos Floyd Work Phone: [facility] Work Phone: 05-27-2021 12:45-0400 SaO2% (BldA) [Mass fraction] 99 % Dr. Amos Floyd Work Phone: [facility] Work Phone: 05-27-2021 12:45-0400 Systolic blood pressure 134 mm[Hg] Dr. Amos Floyd Work Phone: [facility] Work Phone: 05-21-2021 01:38-0400 Body mass index (BMI) [Ratio] 23 kg/m2 Dr. Amos Floyd Work Phone: [facility] Work Phone: 04-20-2021 09:35-0500 Body mass index (BMI) [Ratio] 23 kg/m2 Dr. Amos Floyd Work Phone: [facility] Work Phone: 04-20-2021 08:35-0500 Body mass index (BMI) [Ratio] 23 kg/m2 Dr. Amos Floyd Work Phone: [facility] Work Phone: 2021 10:08-0500 Body height 157.[address] Amos Floyd Work Phone: [facility] Work Phone: 2021 10:08-0500 Body mass index (BMI) [Ratio] 26.5 kg/m2 Dr. Amos Floyd Work Phone: [facility] Work Phone: 2021 10:08-0500 Body weight 65.[address] Amos Floyd Work Phone: [facility] Work Phone: 2021 10:08-0500 Diastolic blood pressure 92 mm[Hg] Dr. Amos Floyd Work Phone: [facility] Work Phone: 2021 10:08-0500 Heart rate 80 /min Dr. Amos Floyd Work Phone: [facility] Work Phone: 2021 10:08-0500 Respiratory rate 18 /min Dr. Amos Floyd Work Phone: [facility] Work Phone: 2021 10:08-0500 SaO2% (BldA) [Mass fraction] 99 % Dr. Amos Floyd Work Phone: [facility] Work Phone: 2021 10:08-0500 Systolic blood pressure 134 mm[Hg] Dr. Amos Floyd Work Phone: [facility] Work Phone: 03-22-2021 21:52-0500 Body mass index (BMI) [Ratio] 23 kg/m2 Dr. Amos Floyd Work Phone: [facility] Work Phone: 02-21-2021 03:05-0500 Body mass index (BMI) [Ratio] 23 kg/m2 Dr. Amos Floyd Work Phone: [facility] Work Phone: 01-20-2021 01:16-0500 Body mass index (BMI) [Ratio] 23 kg/m2 Dr. Amos Floyd Work Phone: [facility] Work Phone: Encounters Encounter Date Encounter Type Care Provider Facility Start: 01-08-2025 ambulatory [facility] Facility:[facility] Start: 12-31-2024 ambulatory [facility] Facility:[facility] Start: 12-27-2024 ambulatory Nixon Smyth [facility] Start: 12-27-2024 End: 12-28-2024 ambulatory Ted F Cortez Facility:[facility] Start: 12-13-2024 Encounter for genera l adult medical examination without abnormal findings Jennifer Tarango [facility] Start: 12-10-[address] Jennifer Tarango DO -Ultrasound [facility] Work Phone: Start: 12-10-2024 End: 12-10-2024 ambulatory Jennifer Tarango Facility:[facility] Start: 12-04-2024 Non-patient / Non-visit Dr. Salena ZELAYA [facility] Start: 12-04-2024 ambulatory MEMO FRYE Work Phone: -[facility] Start: 12-04-2024 ambulatory Jennifer Tarango Facility: [facility] Start: 12-03-2024 End: 12-03-2024 Patient encounter procedure Basim Joel PROJECT DESIGNER -Laboratory Work Phone: Start: 12-03-2024 End: 12-03-2024 ambulatory Jennifer Tarango Facility:[facility] Start: 11-28-2024 End: 11-28-2024 ambulatory BASIM JOEL [facility] Start: 11-28-2024 End: 11-28-2024 Office outpatient visit 25 minutes Bsaim Joel DISEASE EDUCATION SPECIALIST - PILL PACKER Work Phone: [facility] - [place] Comment on above: Chronic systolic hea rt failure (HCC) (Primary Dx); S/P TAVR (transcatheter aortic valve replacement); Deep vein thrombosis (DVT) of proximal vein of both lower extremities, unspecified chronicity (HCC); Stage 3b chronic kidney disease (CMS/HCC); Ritchie's disease (HCC) Start: 11-28-2024 End: 11-28-2024 Subsequent hospital visit by physician Dylon Gupta DISEASE EDUCATION SPECIALIST - PILL PACKER Work Phone: [facility] Comment on above: Severe aortic stenos is Start: 11-28-2024 End: 11-28-2024 ambulatory DYLON GUPTA [facility] Start: 11-25-2024 End: 11-25-[address] Jennifer Tarango DO -Laboratory Work Phone: Start: 11-25-2024 End: 11-25-2024 ambulatory Jennifer Tarango Facility:[facility] Start: 11-14-2024 End: 11-14-[address] Jordan Marte MD -[facility] Work Phone: Start: 11-14-2024 End: 11-14-[address] Amos Floyd MD Work Phone: [facility] Start: 10-31-2024 End: 10-31-2024 ambulatory BASIM [facility] Start: 10-31-2024 End: 10-31-2024 Office outpatient visit 25 minutes Basim Joel DISEASE EDUCATION SPECIALIST - PILL PACKER Work Phone: [facility] - [place] Comment on above: Severe aortic stenos is (Primary Dx); Stage 3b chronic kidney disease (HCC); Ritchie's disease (HCC); Chronic systolic heart failure (HCC); Deep vein thrombosis (DVT) of proximal vein of both lower extremities, unspecified chronicity (HCC) Start: 10-31-2024 End: 10-31-2024 ambulatory BASIM [facility] Start: 10-29-2024 End: 10-29-2024 Office outpatient visit 25 minutes Amos Floyd MD Work Phone: [facility] [place] Comment on above: S/p TAVR (transcathe ter aortic valve replacement), bioprosthetic (Primary Dx); Pure hypercholesterolemia; Encounter for immunization; Stage 3b chronic kidney disease (HCC); Hypertensive kidney disease with stage 3b chronic kidney disease (HCC); Nonrheumatic aortic valve stenosis Start: 10-29-2024 End: 10-29-2024 ambulatory AMOS FLOYD Facility:[facility] Start: 10-24-2024 End: 10-24-2024 Orders Only Dylon Gupta [employer] Work Phone: [facility] [place] Comment on above: Severe aortic stenos is (Primary Dx) Start: 10-23-2024 End: 10-24-2024 Evaluation and management of inpatient Memo Canas MD Work Phone: [facility] Cardiac Thoracic Vascular Intensive Care Unit CTV ICU T1 Comment on above: Severe aortic stenos is (Primary Dx); Aortic valve stenosis, etiology of cardiac valve disease unspecified; Syncope and collapse Start: 10-22-2024 End: 10-22-2024 ambulatory Dylon Gupta [employer] Work Phone: [facility] Comment on above: Severe aortic stenos is (Primary Dx) Start: 10-16-2024 End: 10-16-2024 Office outpatient visit 25 minutes Dylon Gupta [employer] Work Phone: [facility] [place] [facility] Comment on above: Severe aortic stenos is (Primary Dx); Stage 3 chronic kidney disease, unspecified whether stage 3a or 3b CKD (HCC); Acute deep vein thrombosis (DVT) of right lower extremity, unspecified vein (HCC); Acute systolic heart failure (HCC); Moris's disease (HCC) Start: 10-16-2024 End: 10-16-2024 ambulatory [employer] [facility] [employer] [facility] Start: 10-15-2024 End: 10-15-[address] Amos Floyd MD Work Phone: -Laboratory Start: 10-15-2024 End: 10-15-[address] Amos Floyd MD Work Phone: -Laboratory Work Phone: Start: 10-15-2024 End: 10-15-2024 ambulatory BERTO CRUZ Facility:[facility] Start: 10-10-2024 End: 10-23-2024 Telephone encounter Memo Canas MD Work Phone: [facility] Comment on above: Procedure Start: 10-03-2024 End: 10-03-[address] Amos Floyd MD Work Phone: -Laboratory Start: 10-03-2024 End: 10-03-2024 Patient encounter procedure Basim Joel PROJECT DESIGNER -Laboratory Work Phone: Start: 10-03-2024 End: 10-03-2024 ambulatory Basimmoe Joel Facility:[facility] Start: 10-02-2024 End: 10-02-2024 Telephone encounter Basim Joel DISEASE EDUCATION SPECIALIST - PILL PACKER Work Phone: [facility] Start: 09-26-2024 End: 09-26-2024 ambulatory AMOS FLOYD Facility:[facility] Start: 09-26-2024 End: 09-26-2024 Telephone encounter Basim Joel DISEASE EDUCATION SPECIALIST - PILL PACKER Work Phone: [facility] Start: 09-26-2024 ambulatory AMOS Dominguez lity:[facility] Start: 09-19-2024 End: 09-19-2024 Office outpatient visit 25 minutes Basim Joel DISEASE EDUCATION SPECIALIST - PILL PACKER Work Phone: [facility] Comment on above: Aortic valve stenosi s, etiology of cardiac valve disease unspecified (Primary Dx); Deep vein thrombosis (DVT) of proximal vein of both lower extremities, unspecified chronicity (HCC); Acute systolic heart failure (HCC); Moris's disease (HCC); Renal insufficiency; Recurrent UTI Start: 09-19-2024 End: 09-19-2024 ambulatory BASIM JOEL [facility] Start: 09-19-2024 End: 09-23-2024 Telephone encounter Arelis Smith DISEASE EDUCATION SPECIALIST.PILL PACKER Work Phone: Urology Comment on above: Consult Start: 09-19-2024 End: 09-19-2024 Subsequent hospital visit by physician Dylon Gupta DISEASE EDUCATION SPECIALIST - PILL PACKER Work Phone: [facility] [address] Comment on above: Nonrheumatic aortic valve stenosis Start: 09-19-2024 End: 09-19-2024 ambulatory DYLON [facility] Start: 09-19-2024 End: 09-19-2024 Office consultation new/estab patient 60 min Arelis Smith DISEASE EDUCATION SPECIALIST.PILL PACKER Work Phone: Urology Comment on above: Recurrent UTI (Prima ry Dx); History of kidney stones Start: 09-19-2024 End: 09-19-2024 ambulatory ARELIS SMITH Facility:[facility] Start: 09-12-2024 End: 09-19-2024 Telephone encounter Amos Floyd MD Work Phone: [facility] [place] Comment on above: Patient Question Start: 09-10-2024 End: 09-10-[address] Amos Floyd MD Work Phone: -Laboratory Start: 09-10-2024 End: 09-10-[address] Amos Floyd MD Work Phone: -Laboratory Work Phone: Start: 09-10-2024 End: 09-10-2024 [facility] Start: 09-03-2024 End: 09-03-2024 Office consultation new/estab patient 80 min Baldo De La Cruz MD Work Phone: [facility] Comment on above: Severe aortic stenos is (Primary Dx) Start: 09-03-2024 End: 09-03-2024 Office outpatient visit 40 minutes Memo Canas MD Work Phone: [facility] Comment on above: Nonrheumatic aortic valve stenosis (Primary Dx) Start: 09-03-2024 End: 09-03-2024 Orders Only Dylon Gupta DISEASE EDUCATION SPECIALIST - PILL PACKER Work Phone: [facility] Comment on above: Nonrheumatic aortic valve stenosis (Primary Dx) Start: 08-31-2024 End: 09-02-2024 Follow-up encounter Amos Floyd MD Work Phone: [facility] [place] Start: 08-29-2024 End: 08-29-2024 Office outpatient visit [...] Start: 08-29-2024 End: 08-29-2024 ambulatory AMOS FLOYD Facility:[facility] Start: 08-22-2024 End: 08-22-2024 Patient Outreach Annemarie Read RN [employer] Comment on above: Weekly phone contact (Recurring) for Transitional Care Management Start: 08-20-2024 End: 08-20-2024 Follow-up encounter Amos Floyd MD Work Phone: [facility] [place] Start: 08-19-2024 End: 08-19-2024 Telephone encounter Amos Floyd MD Work Phone: [facility] Comment on above: Patient Update Start: 08-16-2024 End: 08-16-2024 ambulatory Amos Floyd MD Work Phone: [facility] [place] Start: 08-16-2024 End: 08-16-2024 Follow-up encounter Amos Floyd MD Work Phone: [facility] [place] Comment on above: Follow up Start: 08-15-2024 End: 08-15-2024 Patient Outreach Annemarie Read RN [employer] Comment on above: Initial phone contac [...] Start: 08-14-2024 End: 08-14-2024 ambulatory AMOS FLOYD Facility:[facility] Start: 08-09-2024 Non-patient / Non-visit Dr. Jairo ramos DO -[facility] Work Phone: Start: 08-08-2024 Non-patient / Non-visit Dr. Deidre Toro MD -[facility] Work Phone: Start: 08-07-2024 ambulatory Jairo Mitchell Facility:[facility] Start: 08-07-2024 End: 08-09-2024 Evaluation and management of inpatient Dr. Nixon Silverio DO -Intensive Care Unit Work Phone: Start: 08-05-2024 End: 08-05-2024 Admission to same day surgery center Dr. Jordan Marte MD -Choir Member/Special Procedures Work Phone: Start: 08-05-2024 End: 08-05-[address] Amos Floyd MD Work Phone: [facility] Work Phone: Start: 07-24-2024 End: 07-24-2024 Office outpatient visit 25 minutes Amos Floyd MD Work Phone: [facility] [place] Comment on above: ASHD (arteriosclerot ic heart disease) (Primary Dx); Primary hypertension; Nonrheumatic aortic valve stenosis; Subconjunctival hemorrhage of left eye; Chronic nonallergic rhinitis; Stage 3b chronic kidney disease (HCC); Adrenal insufficiency (HCC); Encounter for immunization Start: 07-24-2024 End: 07-24-2024 ambulatory AMOS FLOYD Facility:[facility] Start: 07-23-2024 End: 07-23-2024 Patient encounter procedure Heaven VASQUEZ -[facility] Work Phone: Start: 07-23-2024 End: 07-23-[address] Amos Floyd MD Work Phone: [facility] Work Phone: Start: 07-21-2024 ambulatory Basim DISLA Facility:[facility] Start: 07-10-2024 End: 07-10-2024 ambulatory AMOS FLOYD Facility:[facility] Start: 07-05-2024 End: 07-05-2024 ambulatory AMOS FLOYD Facility:[facility] Start: 07-03-2024 ambulatory Amos Floyd Facili ty:[facility] Start: 07-03-2024 Non-patient / [facility] Start: 07-03-2024 End: 07-03-2024 Patient encounter procedure Tucker DISLA -Cardiovascular Services Work Phone: Start: 07-03-2024 End: 07-03-[address] Amos Floyd MD Work Phone: [facility] Work Phone: Start: 06-21-2024 End: 06-21-2024 Discharged Recurring Basim Velasquez PA -Laboratory Work Phone: Start: 06-21-2024 Registered Recurring Basim Velasquez PA -Laboratory Work Phone: Start: 06-21-2024 End: 06-21-[address] Amos Floyd MD Work Phone: [facility] Work Phone: Start: 06-19-2024 End: 06-19-2024 Orders Only Brissa Wright DISEASE EDUCATION SPECIALIST.PILL PACKER Work Phone: [facility] [...] ambulatory Dr. Amos Floyd MD Work Phone: [facility] Work Phone: Start: 05-24-2024 End: 05-24-2024 [facility] Start: 05-14-2024 End: 05-14-2024 ambulatory Amos Floyd MD Work Phone: [facility] Comment on above: Allied Health Visit (Medication Adherence Outreach/) Start: 04-29-2024 End: 04-29-2024 Patient encounter procedure Tucker Reyes MA -[place] [facility] Work Phone: Start: 04-29-2024 End: 04-29-2024 [facility] Start: 04-26-2024 End: 04-26-2024 Discharged Recurring Basim Velasquez PA -Laboratory Work Phone: Start: 04-26-2024 End: 04-26-[address] Amos Floyd MD Work Phone: [facility] Work Phone: Start: 04-05-2024 End: 04-05-2024 ambulatory [facility] Start: 04-05-2024 End: 04-05-2024 Patient encounter procedure Del Saravia MA [facility] Comment on above: Population Health Na vigation Outreach ([employer] High Risk - 1st attempt/) Start: 04-03-2024 End: 04-03-[address] Jennifer Tarango DO -Laboratory Work Phone: Start: 04-03-2024 End: 04-03-2024 ambulatory Jennifer Tarango Facility:[facility] Start: 03-21-2024 End: 03-22-2024 ambulatory Basim DISLA Facility:[facility] Start: 03-21-2024 End: 03-22-2024 Discharged Recurring Basim Velasquez PA -Laboratory Work Phone: Start: 02-22-2024 End: 02-22-2024 Telephone encounter Amos Floyd MD Work Phone: [facility] Comment on above: Results Start: 02-01-2024 End: 02-01-2024 Subsequent hospital visit by physician [facility] (I-Stat) Work Phone: Cat Scan Comment on above: Nodule of lower lobe of right lung [R91.1] Start: 02-01-2024 End: 02-01-2024 ambulatory AMOS FLOYD Facility:[facility] Start: 01-23-2024 End: 01-23-2024 ambulatory AMOS FLOYD Facility:[facility] Start: 01-23-2024 End: 01-23-2024 Patient encounter [...] Start: 01-11-2024 End: 01-11-2024 ambulatory AMOS FLOYD Facility:[facility] Start: 01-04-2024 End: 01-20-2024 ambulatory Basim DISLA Facility:[facility] Start: 01-01-2024 End: 01-01-2024 ambulatory AMOS FLOYD Facility:[facility] Start: 01-01-2024 End: 01-01-2024 Subsequent hospital visit by physician Xr [facility] Work Phone: Radiology Comment on above: [...] End: 12-20-2023 Patient encounter procedure Nathaly Ren APRN.PILL PACKER Work Phone: [facility] Comment on above: Radiology Review Start: 12-20-2023 End: 12-20-2023 Telephone encounter Nathaly Ren APRN.PILL PACKER Work Phone: [facility] Start: 12-06-2023 End: 12-07-2023 Refill Amos Floyd MD Work Phone: [facility] [place] Comment on above: Refill Request Start: 12-05-2023 End: 12-11-2023 Telephone encounter Amos Floyd MD Work Phone: [facility] [place] Comment on above: Insurance Authorizat ion Start: 11-28-2023 End: 12-01-2023 Refill Amos Floyd MD Work Phone: [facility] Start: 11-14-2023 End: 11-14-2023 ambulatory Jacey Reyes RN Work Phone: [employer] Start: 09-19-2023 End: 09-19-2023 ambulatory Kole El PT Work Phone: [facility] Physical [facility] Comment on above: Physical decondition ing (Primary Dx); Gait abnormality; Weakness Start: 09-12-2023 End: 09-12-2023 ambulatory Koleberny El PT Work Phone: [facility] Comment on above: Physical decondition ing (Primary Dx); Gait abnormality; Weakness Start: 09-08-2023 End: 09-08-2023 ambulatory Koleberny El PT Work Phone: [facility] Comment on above: Physical decondition ing (Primary Dx); Gait abnormality; Weakness Start: 09-06-2023 End: 01-15-2024 ambulatory Amos Floyd MD Work Phone: [facility] [place] Start: 09-06-2023 End: 01-15-2024 Follow-up encounter Amos Floyd MD Work Phone: [facility] [place] Comment on above: Patient followup Start: 08-30-2023 End: 08-30-2023 ambulatory Kole El PT Work Phone: [facility] Comment on above: Physical decondition ing (Primary Dx); Gait abnormality; Weakness Start: 08-21-2023 End: 08-21-2023 ambulatory Gisel Frost MANAGEMENT ANALYST Work Phone: [facility] Comment on above: Physical decondition ing (Primary Dx); Gait abnormality; Weakness Start: 08-17-2023 E-mail encounter fro m caregiver Nathaly Sorianoli MURILLO.PILL PACKER Work Phone: [facility] Start: 08-17-2023 Patient encounter procedure Nathaly Sorianoli MURILLO.PILL PACKER Work Phone: [facility] Comment on above: Actionable Finding Start: 08-11-2023 End: 08-11-2023 Patient encounter procedure Amos Floyd MD Work Phone: [facility] [place] Comment on above: Primary hypertension (Primary Dx); Hypercalcemia; Adrenal hypofunction (HCC); Nonrheumatic aortic valve stenosis Start: 08-09-2023 End: 08-09-2023 ambulatory Kole Sienna PT Work Phone: [facility] Comment on above: Physical decondition ing (Primary Dx); Gait abnormality; Weakness Start: 08-08-2023 Telephone encounter Amos maria MD Work Phone: [facility] [place] Comment on above: Hypertension Start: 08-02-2023 End: 08-02-2023 ambulatory Kole Sienna PT Work Phone: [facility] Comment on above: Physical decondition ing (Primary Dx); Gait abnormality; Weakness Start: 07-19-2023 End: 01-15-2024 ambulatory Kole Sienna PT Work Phone: [facility] Comment on above: Physical decondition ing (Primary Dx); Gait abnormality; Weakness medication midodrine Start: 07-05-2023 End: 07-05-2023 ambulatory Kole Sienna PT Work Phone: [facility] Comment on above: Physical decondition ing (Primary Dx); Gait abnormality; Weakness Start: 06-30-2023 End: 06-30-2023 Patient encounter procedure Amos Floyd MD Work Phone: [facility] [place] Comment on above: Hypercalcemia (Prima ry Dx); Age-related osteoporosis with current pathological fracture with routine healing; Hypokalemia; Adrenal hypofunction (HCC); NSTEMI (non-ST elevated myocardial infarction) (HCC); ASHD (arteriosclerotic heart disease); Nonrheumatic aortic valve stenosis Start: 06-28-2023 End: 06-28-2023 ambulatory Kole El PT Work Phone: [facility] Comment on above: Physical decondition ing (Primary Dx); Gait abnormality; Weakness Start: 06-21-2023 End: 06-21-2023 ambulatory Kole Sienna PT Work Phone: [facility] Comment on above: Physical decondition ing (Primary Dx); Gait abnormality; Weakness Start: 06-19-2023 Telephone encounter Delfino yost APRN.PILL PACKER Work Phone: [facility] Cardiology [place] Comment on above: Appointment Start: 06-19-2023 End: 06-20-[address] Amos Floyd Work Phone: [facility] Work Phone: Start: 06-19-2023 End: 06-20-[address] Amos Floyd Work Phone: [facility]-Laboratory Work Phone: Start: 06-14-2023 End: 06-14-2023 ambulatory Kole El PT Work Phone: [facility] Comment on above: Physical decondition ing (Primary Dx); Gait abnormality; Muscle weakness Start: 06-09-2023 ambulatory Rocio alexander APRN.PILL PACKER Work Phone: [facility] Start: 06-09-2023 Evaluation and management of inpatient Rocio Elizalde APRN.PILL PACKER Work Phone: [facility] Medicine [place] Comment on above: is inpatient a t [facility] Start: 06-08-2023 ambulatory Amos salazar MD Work Phone: [facility] [place] Comment on above: Chest Pain Start: 06-07-2023 Telephone encounter Rocio gomez DISEASE EDUCATION SPECIALIST.PILL PACKER Work Phone: [facility] [place] Comment on above: Blood Pressure Start: 05-31-2023 End: 05-31-[address] Amos Floyd Work Phone: [facility] Work Phone: Comment on above: Physical decondition ing (Primary Dx); Muscle weakness; Gait abnormality Start: 05-31-2023 Telephone encounter Amos maria MD Work Phone: [facility] [place] Comment on above: Clinical Update Start: 05-31-2023 End: 05-31-[address] Amos Floyd Work Phone: [facility]-Medical Out Work Phone: Start: 05-31-[address] Jenni Floyd Work Phone: [facility]-Laboratory Work Phone: Start: 05-31-2023 End: 05-31-2023 Patient encounter procedure Rocio Elizalde DISEASE EDUCATION SPECIALIST.PILL PACKER Work Phone: [facility] [place] Comment on above: Other specified hypo tension (Primary Dx); Moris's disease (HCC); Hypercalcemia Start: 05-31-2023 End: 05-31-2023 ambulatory Kole El PT Work Phone: [facility] Comment on above: Gait abnormality (Pr imary Dx); Physical deconditioning; Weakness Start: 05-24-2023 End: 05-26-2023 ambulatory Rocio Elizalde DISEASE EDUCATION SPECIALIST.PILL PACKER Work Phone: [facility] Start: 05-24-2023 Evaluation and management of inpatient Rocio Elizalde APRN.PILL PACKER Work Phone: [facility] [place] Comment on above: is inpatient a dana BASHIR Start: 05-24-2023 End: 05-26-2023 Evaluation and management of inpatient [facility] Start: 05-23-2023 End: 05-24-2023 Emergency department patient [facility] Dr. Amos Floyd [facility]: Start: 05-23-2023 Telephone encounter Hung Freed MD Work Phone: [facility] Comment on above: Results Start: 05-23-2023 End: 05-23-2023 Patient encounter procedure Rocio Jorge Fide DISEASE EDUCATION SPECIALIST.PILL PACKER Work Phone: [facility] Medicine [place] Comment on above: Hypercalcemia (Prima ry Dx); Fatigue, unspecified type; Urinary frequency; Myalgias; Confusion; Weakness Start: 05-22-2023 Telephone encounter Amos maria MD Work Phone: [facility] [place] Comment on above: Patient Question Start: 05-19-2023 ambulatory Amos salazar MD Work Phone: [facility] Start: 05-19-2023 Follow-up encounter Amos maria MD Work Phone: [facility] [place] Comment on above: Zometa medication/ E R visit followup care. Start: 05-15-2023 End: 05-15-2023 Emergency department patient visit Dr. Amos Floyd [facility] Work [facility]: Start: 05-15-2023 Telephone encounter Amos maria MD Work Phone: [facility] [place] Comment on above: Patient Update Start: 05-09-2023 End: 05-09-2023 ambulatory José Shi PT, DPT [facility] Comment on above: Gait abnormality (Pr imary Dx); Hip pain, unspecified laterality; Closed displaced fracture of fifth metatarsal bone of right foot with delayed healing, subsequent encounter Start: 05-02-2023 End: 05-02-2023 ambulatory José Shi PT DPT [facility] Comment on above: Gait abnormality (Pr imary Dx); Hip pain, unspecified laterality; Closed displaced fracture of fifth metatarsal bone of right foot with delayed healing, subsequent encounter Start: 2023 End: 04-20-[address] Amos Floyd Work Phone: [facility] Work Phone: Start: 2023 End: 04-20-[address] Amos Floyd Work Phone: [facility] Work Phone: Start: [address] Jenn[facility] Start: 04-11-2023 End: 04-11-2023 ambulatory Kole El PT Work Phone: [facility] Comment on above: Gait abnormality (Pr imary Dx); Hip pain, unspecified laterality; Closed displaced fracture of fifth metatarsal bone of right foot with delayed healing, subsequent encounter Start: 04-10-2023 Non-patient / Non-visit Dr. Atiya Floyd Work Phone: [facility] Start: 04-10-2023 End: 04-10-[address] Amos Floyd Work Phone: [facility] Work Phone: Start: 04-10-2023 End: 04-10-[address] Amos Floyd Work Phone: [facility]Cardiov[facility]cul[facility] Services Work Phone: Start: 04-04-2023 End: 04-04-[address] Amos Floyd Work Phone: [facility] Work Phone: Start: 04-04-2023 End: 04-04-[address] Amos Floyd Work Phone: [facility]Labor[facility], Phy Office 3rd Flr Start: 04-03-2023 End: 04-03-2023 ambulatory Kole El PT Work Phone: [facility] Comment on above: Gait abnormality (Pr imary Dx); Hip pain, unspecified laterality; Closed displaced fracture of fifth metatarsal bone of right foot with delayed healing, subsequent encounter Start: 03-28-[address] Jenni Floyd [facility] Start: 03-28-2023 End: 03-28-2023 ambulatory Kole El PT Work Phone: [facility] Therapy Comment on above: Gait abnormality (Pr imary Dx); Hip pain, unspecified laterality; Closed displaced fracture of fifth metatarsal bone of right foot with delayed healing, subsequent encounter Start: 03-23-2023 ambulatory Omar bernardo Work Phone: Podiatry Comment on above: xrays Start: 03-23-2023 E-mail encounter fro m caregiver Omar Anthony Work Phone: [facility] Start: 03-03-2023 End: 03-03-[address] Amos Floyd Work Phone: [facility] Work Phone: Start: 02-24-2023 End: 02-24-[address] Amos Floyd Work Phone: [facility] Work Phone: Start: 02-24-2023 End: 02-24-[address] Amos Floyd [facility] Start: 02-08-2023 End: 02-19-[address] Amos Floyd Work Phone: [facility] Work Phone: Start: 02-08-2023 End: 02-19-[address] Amos Floyd [facility] Start: 01-19-2023 End: 01-19-2023 Patient encounter procedure Amos Floyd MD Work Phone: [facility] [place] Comment on above: Medicare annual well ness visit, subsequent (Primary Dx); Primary hypertension; Pure hypercholesterolemia; Atopic neurodermatitis; Adrenal hypofunction (HCC); Disorder of autonomic nervous system; Stage 3b chronic kidney disease (HCC); Age-related osteoporosis with current pathological fracture with routine healing; Need for COVID-19 vaccine; Hypercalcemia Start: 01-18-2023 End: 01-18-2023 Subsequent hospital visit by physician [facility] Work Phone: Radiology Comment on above: Closed displaced fra cture of fifth metatarsal bone of right foot, initial encounter [S92.351A] Start: 12-23-2022 End: 01-19-[address] Amos Floyd Work Phone: [facility] Work Phone: Start: 12-23-2022 End: 01-19-[address] Amos Floyd [facility] Start: 12-19-2022 End: 12-19-2022 Patient encounter procedure Omar Cruz Work Phone: Podiatry Comment on above: Closed displaced fra cture of fifth metatarsal bone of right foot, initial encounter (Primary Dx) Start: 12-19-2022 End: 12-19-2022 Subsequent hospital visit by physician [facility] Work Phone: Radiology Comment on above: Closed displaced fra cture of fifth metatarsal bone of right foot, initial encounter [S92.351A] Start: 12-08-2022 End: 12-08-[address] Amos Floyd Work Phone: [facility] Work Phone: Start: 12-08-2022 End: 12-08-[address] Amos Floyd Work Phone: [facility] Work Phone: Start: 12-02-2022 Refill Amos salazar MD Work Phone: [facility] [place] [place] Comment on above: Refill Request Start: 12-01-2022 End: 12-01-2022 Subsequent hospital visit by physician [facility] Work Phone: Radiology Comment on above: Closed displaced fra cture of fifth metatarsal bone of right foot, initial encounter [S92.351X] Start: 11-25-2022 End: 11-25-[address] Amos Floyd Work Phone: [facility] Work Phone: Start: 11-24-2022 End: 11-24-[address] Amos Floyd Work Phone: [facility] Endocrinology Work Phone: Start: 11-08-2022 End: 11-08-2022 Subsequent hospital visit by physician [facility] Work Phone: Radiology Comment on above: Foot pain, right [M7 9.671] Start: 11-08-2022 End: 11-08-2022 Patient encounter procedure Jacinda Enriquez APRN.PILL PACKER Work Phone: [facility] Comment on above: Foot pain, right (Pr imary Dx); Closed fracture of right foot, initial encounter Start: 11-01-2022 End: 11-01-2022 ambulatory Kole El PT Work Phone: [facility] Physical Therapy Comment on above: Hip pain, unspecifie d laterality [M25.559] (Primary Dx) Start: 10-26-2022 End: 10-26-[address] Amos Floyd Work Phone: [facility] Work Phone: Start: 10-26-2022 End: 10-26-[address] Amos Floyd [facility] Start: 10-26-2022 End: 10-26-2022 Subsequent hospital visit by physician [facility] Work Phone: Radiology Comment on above: Hip pain, unspecifie d laterality [M25.559] Start: 10-26-2022 End: 10-26-2022 Patient encounter procedure Amos Floyd MD Work Phone: [facility] [place] Comment on above: Hip pain, unspecifie d laterality (Primary Dx); Stage 3b chronic kidney disease (HCC); Deep vein thrombosis (DVT) of lower extremity, unspecified chronicity, unspecified laterality, unspecified vein (HCC); Need for influenza vaccination Start: 10-11-2022 End: 10-11-[address] Amos Floyd Work Phone: [facility] Work Phone: Start: 10-11-2022 End: 10-11-[address] Amos Floyd [facility] Start: 09-19-2022 Refill Nevin Brooks Work Phone: Dermatology Comment on above: Refill Request Start: 09-12-2022 End: 09-19-[address] Amos Floyd Work Phone: [facility] Work Phone: Start: 09-12-2022 End: 09-19-[address] Amos Floyd [facility] Start: 08-11-2022 End: 08-11-[address] Amos Floyd Work Phone: [facility] Work Phone: Start: 08-11-2022 End: 08-11-[address] Amos Floyd [facility] Start: 08-04-2022 End: 08-04-[address] 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 Amos Floyd [facility] Start: 07-22-2022 Telephone encounter Ryan rick MD Work Phone: Dermatology Comment on above: Patient Question Start: 07-20-2022 End: 07-20-2022 Patient encounter procedure Rocio Johnson APRN.PILL PACKER Work Phone: [facility] [place] Comment on above: Primary hypertension (Primary Dx); Pure hypercholesterolemia; Stage 3b chronic kidney disease (HCC); ASHD (arteriosclerotic heart disease); Osteopenia, unspecified location Start: 07-08-2022 End: 07-20-[address] Amos Floyd Work Phone: [facility] Work Phone: Start: 07-08-2022 End: 07-20-[address] Amos Floyd [facility] Start: 06-07-2022 End: 06-07-[address] Amos Floyd Work Phone: [facility] Work Phone: Start: 06-07-2022 End: 06-07-[address] Amos Floyd [facility] Start: 05-31-2022 End: 05-31-[address] Amos Floyd Work Phone: [facility] Work Phone: Start: 05-31-2022 End: 05-31-[address] Amos Floyd Work Phone: [facility] Start: 05-27-2022 End: 05-27-[address] 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 Amos Floyd Work Phone: [facility] Work Phone: Start: 05-09-2022 End: 05-20-[address] Amos Floyd Work Phone: [facility] Start: 03-25-2022 Non-patient / Non-visit Dr. Atiya Floyd Work Phone: [facility] Start: 03-25-2022 End: 03-25-[address] Amos Floyd Work Phone: [facility] Work Phone: Start: 03-25-2022 End: 03-25-[address] Amos Floyd Work Phone: [facility] Start: 03-15-2022 Telephone encounter Ryan rick MD Work Phone: Dermatology Comment on above: Insurance Authorizat ion ([employer]) Start: 03-14-2022 Refill Ryan Gaitan Work Phone: Dermatology Comment on above: Refill Request Start: 03-10-2022 End: 03-10-[address] Amos Floyd Work Phone: [facility] Work Phone: Start: 03-10-2022 End: 03-10-[address] 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 Amos Floyd Work Phone: [facility] Work Phone: Start: 02-15-2022 End: 02-15-[address] Amos Floyd [facility] Start: 01-27-[address] Jenni Floyd [facility] Start: 01-25-2022 End: 01-25-[address] Amos Floyd Work Phone: [facility] Work Phone: Start: 01-25-2022 End: 01-25-[address] Amos Floyd Work Phone: [facility] Start: 12-28-2021 End: 01-19-[address] Amos Floyd Work Phone: [facility] Work Phone: Start: 12-28-2021 End: 01-19-[address] Amos Floyd [facility] Start: 12-20-2021 End: 12-20-2021 Patient encounter procedure Rocio Johnson APRN.PILL PACKER Work Phone: [facility] [place] Comment on above: Medicare annual well ness visit, subsequent (Primary Dx); Hypertension, unspecified type; Pure hypercholesterolemia; Encounter for immunization Start: 12-13-2021 End: 12-13-[address] Amos Floyd Work Phone: [facility] Start: 12-08-2021 Documentation procedure Mammog akash Coordinator [facility] Start: 12-08-2021 Letter encounter Mammography Coordinator [facility] Department Start: 12-08-2021 End: 12-08-2021 Subsequent hospital visit by physician Screen Mammo [facility] Comment on above: Encounter for screen ing mammogram for malignant neoplasm of breast [Z12.31] Start: 12-06-2021 End: 12-06-2021 Patient encounter procedure Amos Floyd MD Work Phone: [facility] [place] Comment on above: Hypotension due to h ypovolemia (Primary Dx); Elevated troponin; Acute kidney injury (HCC); Stage 3b chronic kidney disease (HCC); Hypercalcemia; Anticoagulated on Coumadin; Breast pain, left; Encounter for screening mammogram for malignant neoplasm of breast Start: 12-02-2021 Refill Amos salazar MD Work Phone: [address] [place] [address] Comment on above: Refill Request Start: 12-02-2021 End: 12-02-[address] Amos Floyd Work Phone: [facility] Endocrinology Start: 11-26-2021 End: 11-26-[address] 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 Amos Floyd Work Phone: [facility] Work Phone: Start: 11-24-2021 End: 11-24-[address] Amos Floyd Work Phone: [facility]Labor[facility], Phy Office 3rd Flr Start: 11-18-2021 Non-patient / Non-visit Dr. Atiya Floyd Work Phone: [facility] Start: 11-17-2021 Non-patient / Non-visit Dr. Atiya Floyd Work Phone: [facility]-Pulmonary Medicine [facility] Start: 11-17-2021 Non-patient / Non-visit Dr. Atiya Floyd Work Phone: [facility] Start: 11-17-2021 Non-patient / Non-visit Dr. Atiya Floyd Work Phone: [facility] Inpatient Physicians Start: 11-17-2021 End: 11-18-2021 Evaluation and management of inpatient [facility]Intensive Care Unit Start: 11-02-2021 End: 11-02-[address] Amos Floyd Work Phone: [facility] Work Phone: Start: 11-02-2021 End: 11-02-[address] Amos Floyd Work Phone: [facility] Start: 11-02-2021 Registered Recurring [facility] Start: 10-28-2021 ambulatory Luciana montes RN Work Phone: [employer] Comment on above: 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 (enrollment/HAH) Start: 10-14-2021 Telephone encounter Jefferson guzman APRN.PILL PACKER Work Phone: [facility] Comment on above: Results Start: 10-13-2021 End: 10-13-2021 Patient encounter procedure Irene Mendenhall APRN.PILL PACKER Work Phone: [facility] Comment on above: Suspected COVID-19 v irus infection (Primary Dx) Start: 09-28-2021 End: 09-28-[address] Amos Floyd Work Phone: [facility] Work Phone: Start: 09-28-2021 End: 09-28-[address] Amos Floyd Work Phone: [facility] Start: 08-30-2021 End: 09-19-[address] 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 Amos Floyd [facility] Start: 07-20-2021 End: 07-20-2021 Patient encounter procedure Amos Floyd MD Work Phone: [facility] [place] Comment on above: Adrenal hypofunction (HCC) (Primary Dx); Primary hypertension; ASHD (arteriosclerotic heart disease); Hip pain; Need for COVID-19 vaccine Start: 07-12-2021 End: 07-12-[address] Amos Floyd Work Phone: [facility] Start: 06-25-2021 End: 06-25-[address] Amos Floyd [facility] Start: 05-27-2021 End: 05-27-[address] Amos Floyd Work Phone: [facility] Start: 05-27-2021 End: 05-27-[address] Amos Floyd [facility] Start: 05-27-[address] Jenni Floyd [facility] Start: 04-29-2021 End: 05-20-[address] Amos Floyd Work Phone: [facility] Start: 04-28-2021 Non-patient / Non-visit Dr. Atiya Floyd Work Phone: [facility] Start: 04-28-2021 End: 04-28-[address] Amos Floyd Work Phone: [facility]Cardiov[facility] Services Start: 2021 End: [address] Amos Floyd Work Phone: [facility] Start: 03-31-2021 End: 03-31-[address] Amos Floyd Work Phone: [facility] Start: 03-02-2021 End: 03-22-[address] Amos Floyd Work Phone: [facility] Start: 02-01-2021 End: 02-20-[address] Amos Floyd Work Phone: [facility] Start: 04-28-2020 Evaluation and management of inpatient ARUN CALERO Facility:[facility] Start: 01-17-2018 Ambulatory [facility] Facility :[facility] Start: 01-17-2017 End: 01-17-2017 Ambulatory [facility] Facility:[facility] Start: 04-09-2009 End: 05-14-2009 Patient encounter status Kole El PT Work Phone: [facility] Procedures Date Procedure Procedure Detail Performing Clinician Start: 12-10-2024 Us retroperitoneal r eal time w/image complete MEMO CANAS Work Phone: Start: 12-03-2024 Serum inorganic phos phate measurement MEMO CANAS Work Phone: Start: 11-28-2024 Echo tthrc r-t 2d w/wom-mode compl spec&colr d Dylon Gupta APRN [employer] PILL PACKER Work Phone: Start: 11-28-2024 Adult depression scr eening assessment Basim Joel [employer] Work Phone: Start: 10-31-2024 Basic metabolic pane l calcium total Basim Joel APRN [employer] Work Phone: Start: 10-29-2024 Ecg routine ecg w/le ast 12 lds i&r only [facility] Provider Start: 10-24-2024 TTE w or wo fol wcon,Doppler Dylon Gupta DISEASE EDUCATION SPECIALIST [employer] Work Phone: Start: 10-24-2024 Ecg routine ecg w/le ast 12 lds trcg only w/o i&r Dylon Gupta APRN [employer] Work Phone: Start: 10-24-2024 Basic metabolic pane l calcium total Dylon Gupta DISEASE EDUCATION SPECIALIST [employer] Work Phone: Start: 10-23-2024 Echo transthorc r-t 2d w/wo m-mode rec f-up/lmtd Memo Canas MD Work Phone: Start: 10-23-2024 Ecg routine ecg w/le ast 12 lds trcg only w/o i&r Dylon Gupta DISEASE EDUCATION SPECIALIST [employer] Work Phone: Start: 10-23-2024 Basic metabolic pane l calcium total Dylon Gupta DISEASE EDUCATION SPECIALIST [employer] Work Phone: Start: 10-23-2024 OXYGEN THERAPY Dylon D estella DISEASE EDUCATION SPECIALIST [employer] Work Phone: Start: 10-23-2024 Cardiac catheterizat ion study Memo Canas MD Work Phone: Start: 10-23-2024 POCT ACT Memo krishna MD Work Phone: Start: 10-23-2024 Blood typing serologic abo Memo Canas MD Work Phone: Start: 10-23-2024 End: 10-23-2024 TRANSCATHETER AORTIC VALVE REPLACEMENT (TAVR) - OR William Self DO Work Phone: Start: 10-23-2024 Radiologic exam ches t single view Dylon Gupta DISEASE EDUCATION SPECIALIST - [facility] Work Phone: Start: 10-23-2024 Antibody screen BALDO JARRETT Comment on above: Performed By: #### L [id number] ####Bond Trader: JAQUELIN RICO ([id number])[facility] ([facility])[address] [place] [address] Start: 10-23-2024 Blood typing serologic abo Dylon Gupta DISEASE EDUCATION SPECIALIST - [facility] Work Phone: Start: 09-29-2024 Ecg routine ecg w/le ast 12 lds w/i&r Memo Canas MD Work Phone: Start: 09-19-2024 Ecg routine ecg w/le ast 12 lds trcg only w/o i&r Memo Canas MD Work Phone: Start: 09-19-2024 BLADDER SCAN Arelis Brenda z DISEASE EDUCATION SPECIALIST.[employer] Work Phone: Start: 09-19-2024 Ct angiography chest w/contrast/noncontrast Dylon Gupta DISEASE EDUCATION SPECIALIST - [facility] Work Phone: Start: 09-19-2024 Culture bacterial quanttative colony count urine Arelis Zane DISEASE EDUCATION SPECIALIST.[employer] Work Phone: Start: 09-19-2024 Urnls dip stick/tabl et rgnt auto w/o microscopy Arelis Dusz DISEASE EDUCATION SPECIALIST.[employer] Work Phone: Start: 08-29-2024 Urnls dip stick/tabl [...] PFIZER-BIONTECH COVI D-19 VACCINE AGE 12+ YR ([facility]) Amos Floyd MD Work Phone: Start: 07-23-2024 X-ray of chest, PA a nd lateral views Dr. Amos Floyd MD Work Phone: Start: 04-03-2024 Assay of phosphorus inorganic Dr. Amos Floyd MD Work Phone: Start: 04-03-2024 Measurement of renal function Dr. Amos Floyd MD Work Phone: Comment on above: GFR Calc Start: 01-23-2024 PFIZER-BIONTECH COVI D-19 VACCINE AGE 12+ YR ([facility]) Amos Floyd MD Work Phone: Start: 01-23-2024 [...] Basic metabolic panel calcium total Raisa Frederick DISEASE EDUCATION SPECIALIST-[employer] Work Phone: Start: 05-26-2023 EXTRA TUBES Jazmine Britt MD Work Phone: Start: 05-26-2023 LAVENDER TOP Jazmine Britt MD Work Phone: Start: 05-26-2023 PST TOP Jazmine Britt MD Work Phone: Start: 05-26-2023 SST TOP Jazmine Britt MD Work Phone: Start: 05-25-2023 CALCIUM, IONIZED ELISA MCDONOUGH Start: 05-25-2023 Calcium ionized Dallasi mamie Frederick DISEASE EDUCATION SPECIALIST-[employer] Work Phone: Start: 05-25-2023 PROTIME-INR ELISA CABRERA Y Start: 05-25-2023 EXTRA TUBES ELISA MANC Y Start: 05-25-2023 Hemoglobin A1c/Hemoglobin.total in Blood ELISA MCDONOUGH Start: 05-25-2023 LAVENDER TOP ELISA MANC Y Start: 05-25-2023 PST TOP ELISA MANC Y Start: 05-25-2023 SST TOP ELISA MANC Y Start: 05-25-2023 EXTRA TUBES Jazmine Britt MD Work Phone: Start: 05-25-2023 End: 05-25-2023 Hemoglobin glycosylated a1c Raisa may DISEASE EDUCATION SPECIALIST-[employer] Work Phone: Start: 05-25-2023 LAVENDER TOP Jazmine [...] 05-24-2023 Comprehensive metabo lic panel Shakira Antunez DISEASE EDUCATION SPECIALIST-[employer] Work Phone: Start: 05-24-2023 EXTRA TUBES Elisa [...] End: 05-24-2023 Comprehensive metabolic panel Shakira Antunez DISEASE EDUCATION SPECIALIST-[employer] Work Phone: Start: 05-23-2023 Plain chest X-ray Dr. Mt Floyd Work Phone: Start: 05-23-2023 Urnls dip stick/tabl et rgnt auto w/o microscopy Rocio M Fide DISEASE EDUCATION SPECIALIST.PI[employer] P[employer]ER Work Phone: Start: 05-15-2023 CT of chest, abdomen and pelvis without contrast Dr. Amos Floyd Work Phone: Start: 05-15-2023 Plain chest X-ray Dr. Mt Floyd Work Phone: Start: 01-19-2023 BioGreen Teck COVI D-19 VACCINE (2022- SEASON) AGE 12+ YR Amos Floyd MD Work Phone: Start: 12-19-2022 Radex foot complete minimum 3 views Omar Cruz Work Phone: Start: 12-01-2022 Radex foot complete minimum 3 views Omar Cruz Work Phone: Start: 11-08-2022 Radex foot complete minimum 3 views Jacinda Enriquez DISEASE EDUCATION SPECIALIST.[employer] Work Phone: Start: 10-26-2022 Radex hips bilateral with pelvis minimum 5 views Amos Floyd MD Work Phone: Start: 10-26-2022 INFLUENZA VACCINE, P RSV FREE, AGE 65+ YR, HIGH DOSE, QUADRIVALENT (FLUZONE HIGH-DOSE) Amos Floyd MD Work Phone: Start: 12-20-2021 PFIZER-BIONTECH COVI D-19 BIVALENT BOOSTER VACCINE, AGE 12+ YR Rocio Older DISEASE EDUCATION SPECIALIST.PILL PACKER Work Phone: Start: 12-08-2021 Screening mammograph y [...] DTaP/Tdap/Td Vaccines (2 - Td or Tdap) [place] [facility] Start: 11-10-2029 Urine microalbumin profile [facility] Start: 10-25-2027 Diabetes Screening Diabetes Screening [facility] Start: 07-06-2027 Diabetes Screening Diabetes Screening [facility] Start: 01-31-2027 Diabetes Screening Diabetes Screening [facility] Start: 11-10-2026 Diabetes Screening Diabetes Screening [facility] Start: 08-30-2026 Diabetes Screening Diabetes Screening [facility] Start: 06-30-2026 Diabetes Screening Diabetes Screening [facility] Start: 06-12-2026 Diabetes Screening Diabetes Screening [facility] Start: 06-10-2026 Diabetes Screening Diabetes Screening [facility] Start: 06-07-2026 Diabetes Screening Diabetes Screening [facility] Start: 05-25-2026 Diabetes Screening Diabetes Screening [facility] Start: 05-22-2026 Diabetes Screening Diabetes Screening [facility] Start: 05-11-2026 Diabetes Screening Diabetes Screening [facility] Start: 01-18-2026 Diabetes Screening Diabetes Screening [facility] Start: 12-20-2025 Screening for osteoporosis Bone Density Screening [facility] Start: 11-28-2025 Depression Screening Depression Screening [facility] Start: 11-28-2025 Echocardiography Echocardiogram [facility] Start: 10-31-2025 Creatinine measurement Creatinine Level [facility] Start: 10-31-2025 Diabetes: Estimated Glomerular Filtration Rate for Kidney Health Diabetes: Estimated Glomerular Filtration Rate for Kidney Health [facility] Start: 10-31-2025 Potassium measurement Potassium Level [facility] Start: 10-24-2025 Creatinine measurement Creatinine Level [facility] Start: 10-24-2025 Echocardiography Echocardiogram [facility] Start: 10-24-2025 Potassium measurement Potassium Level [facility] Start: 10-23-2025 Creatinine measurement Creatinine Level [facility] Start: 10-23-2025 Echocardiography Echocardiogram [facility] Start: 10-23-2025 Potassium measurement Potassium Level [facility] Start: 01-31-2025 Creatinine measurement Serum Creatinine [facility] Start: 01-31-2025 Hepatitis B surface antibody level LDL Cholesterol [facility] Start: 01-22-2025 Annual PCP Team Chronic Disease Visit Annual PCP Team Chronic Disease Visit [facility] Start: 01-22-2025 Anxiety Screening Anxiety Screening [facility] Start: 01-22-2025 Depression Screening Depression Screening [facility] Start: 01-22-2025 End: 01-22-2025 Patient encounter procedure 01/22/2025 8:40 AM EST Office Visit [facility] [address] [place] [address] Amos Floyd MD [address] [place] [address] Annual Medicare Wellness w/6 month follow-up [facility] Comment on above: Annual Medicare Wellness w/6 month follo w-up Start: 01-13-2025 End: 04-14-2025 Comprehensive metabolic 2000 panel - Serum or Plasma COMPREHENSIVE METABOLIC PANEL Lab Routine Pure hypercholesterolemia Expected: 01/13/2025, Expires: 04/14/2025 [facility] Work Phone: Comment on above: Expected: 01/13/2025, Expires: Start: 01-13-2025 End: 04-14-2025 Lipid 1996 panel - Serum or Plasma LIPID PANEL, FASTING Lab Routine Pure hypercholesterolemia Expected: 01/13/2025, Expires: 04/14/2025 [facility] Comment on above: Expected: 01/13/2025, Expires: Start: 01-13-2025 End: 01-13-2025 Nursing evaluation of patient and report 01/13/2025 9:00 AM EST Nurse Visit [facility] [address] [place] [address] Nurse, Ar [address] [place], [place] [address] [facility] Comment on above: [facility] Start: 01-01-2025 End: 01-01-2025 Patient encounter procedure 01/01/2025 10:30 AM EST Office Visit [facility] - [place] [address] [place] [phone] Jefferson Adorno MD [address] [place] [address] [facility] [place] Start: 11-28-2024 End: 11-28-2025 Basic metabolic 1998 panel - Serum or Plasma Basic metabolic panel Lab Routine S/P TAVR (transcatheter aortic valve replacement) Expected: 11/28/2024 (Approximate), Expires: 11/28/2025 [email or web address] [facility] Work Phone: Comment on above: Expected: 11/28/2024 (Approximate), Expi res: 11/28/2025 Start: 11-28-2024 End: 11-28-2024 Patient encounter procedure [facility] [address] Non-Invasive Cardiology Start: 11-23-2024 End: 10-24-2026 US Heart Transthoracic Transthoracic echocardiogram (TTE) complete with contrast, bubble, strain, and 3D PRN CV Echocardiography Routine Severe aortic stenosis Expected: 11/23/2024 (Approximate), Expires: 10[facility]24/[facility] Work Phone: Comment on above: Expected: 11/23/2024 (Approximate), Expi res: 10/24/2026 Start: 11-14-2024 End: 11-14-2024 Evaluation of diagnostic study results [facility] Start: 11-10-2024 Creatinine measurement Serum Creatinine [facility] Start: 10-31-2024 End: 10-31-2024 Patient encounter procedure 10/31/2024 11:00 AM EDT Office Visit [facility] [place] [address] [place] [phone] Basim Joel, DISEASE EDUCATION SPECIALIST - PILL PACKER [address] [place] [address] [facility] [place] Start: 10-29-2024 End: 10-29-2024 Patient encounter procedure 10/29/2024 10:40 AM EDT Office Visit [facility] [address] [place] [address] Amos Floyd MD [address] [place] [address] 2 month follow-up [facility] Comment on above: 2 month follow-up Start: 10-23-2024 End: 10-23-2024 Patient encounter procedure 10/23/2024 9:00 AM EDT Office Visit [facility] [address] [place] [phone] Noble Chowdary MD [address] [place] [address] juanis bonilla [facility] Comment on above: juanis bonilla Start: 10-23-2024 End: 10-23-2024 Admission to same day surgery center 10/23/2024 7:30 AM EDT - 10/23/2024 9:15 AM EDT Surgery [facility] MA[facility] OR [address] [place] [address] Memo Canas MD [address] [facility] [address] [place] [address] TRANSCATHETER AORTIC VALVE REPLACEMENT, TRANSTHORACIC ECHOCARDIOGRAM [facility] Comment on above: TRANSCATHETER AORTIC VALVE REPLACEMENT, TRANSTHORACIC ECHOCARDIOGRAM Start: 10-23-2024 End: 10-23-2024 Anesthesia consultation 10/23/2024 7:30 AM EDT Anesthesia Event [facility] OR [address] [place] [address] Ben Harris, DISEASE EDUCATION SPECIALIST - RADIO PRESENTER [address] [facility] [address] [place] [address] [facility] Start: 10-23-2024 Subsequent hospital visit by physician [facility] Comment on above: Severe aortic stenosis Start: 10-23-2024 End: 10-23-2024 TRANSCATHETER AORTIC VALVE REPLACEMENT (TAVR) - OR TRANSCATHETER AORTIC VALVE REPLACEMENT (TAVR) - OR Severe aortic stenosis 10/23/2024 7:30 AM EDT [facility] Start: 10-21-2024 Influenza vaccination Influenza Vaccine (#1) [facility] Start: 10-14-2024 End: 10-14-2025 Basic metabolic 1998 panel - Serum or Plasma Basic metabolic panel Lab Routine Severe aortic stenosis Expected: 10/14/2024 (Approximate), Expires: 10/14/2025 [facility] [employer] Work Phone: Comment on above: Expected: 10/14/2024 (Approximate), Expi res: 10/14/2025 Start: 10-14-2024 End: 10-14-2025 CBC panel - Blood by Automated count CBC Lab Routine Severe aortic stenosis Expected: 10/14/2024 (Approximate), Expires: 10/14/2025 [employer] Comment on above: Expected: 10/14/2024 (Approximate), Expi res: 10/14/2025 Start: 10-02-2024 End: 10-02-2025 Basic metabolic 1997 panel - Serum or Plasma Basic metabolic panel Lab Routine Renal insufficiency Expected: 10/02/2024 (Approximate), Expires: 10/02/2025 [employer] Work Phone: Comment on above: Expected: 10/02/2024 (Approximate), Expi res: 10/02/2025 Start: 09-26-2024 End: 09-26-2024 Patient encounter procedure 09/26/2024 1:45 PM EDT Appointment Radiology [address] [place], [place] [address] Recurrent UTI [N39.0]; History of kidney stones [Z87.442] Radiology Comment on above: Recurrent UTI [N39.0]; History of kidney stones [Z87.442] Start: 09-19-2024 End: 09-19-2025 Basic metabolic 1997 panel - Serum or Plasma Basic metabolic panel Lab Routine Aortic valve stenosis, etiology of cardiac valve disease unspecified Expected: 09/19/2024 (Approximate), Expires: 09/19/2025 [employer] Work Phone: Comment on above: Expected: 09/19/2024 (Approximate), Expi res: 09/19/2025 Start: 09-19-2024 End: 09-19-2024 Patient encounter procedure [facility] [address] Start: 09-18-2024 End: 09-03-2025 CBC W Auto Differential panel - Blood CBC auto differential Lab Routine Nonrheumatic aortic valve stenosis Expected: 09/18/2024 (Approximate), Expires: 09/03/2025 [employer] Work Phone: Comment on above: Expected: 09/18/2024 (Approximate), Expi res: 09/03/2025 Start: 09-10-2024 End: 09-03-2025 Basic metabolic 1997 panel - Serum or Plasma Basic metabolic panel Lab Routine Nonrheumatic aortic valve stenosis Expected: 09/10/2024 (Approximate), Expires: 09/03/2025 [facility] [employer] Comment on above: Expected: 09/10/2024 (Approximate), Expi res: 09/03/2025 Start: 09-03-2024 End: 09-03-2025 CT Chest WO and CT angiogram Coronary arteries W contrast IV CTA Angiogram TAVR Imaging Routine Nonrheumatic aortic valve stenosis Expected: 09/03/2024, Expires: 09/03/2025 [facility] [employer] [facility] Work Phone: Comment on above: Expected: 09/03/2024, Expires: Start: 08-30-2024 Creatinine measurement Serum Creatinine [facility] Start: 08-29-2024 End: 08-29-2024 Patient encounter procedure 08/29/2024 10:40 AM EDT Office Visit [facility] [address] [place], [place] [phone] Amos Floyd MD [address] [place] [address] 2 week follow-up [facility] Comment on above: 2 week follow-up Start: 08-10-2024 Annual PCP Team Chronic Disease Visit Annual PCP Team Chronic Disease Visit [facility] Start: 08-09-2024 Patient discharge [facility] Start: 08-07-2024 Following clinical pathway protocol [facility] Start: 08-07-2024 Cardiac monitoring [facility] Start: 08-07-2024 Catheterization of vein [facility] Start: 08-07-2024 Notification of physician [facility] Start: 08-07-[address] [facility] Start: 08-07-2024 [facility] Start: 08-07-2024 CT Abdomen and Pelvis WO contrast [facility] Start: 08-07-2024 CT of abdomen and pelvis without contrast Abdomen/Pelvis without Cont [facility] Start: 08-07-2024 Measurement of occult blood in stool specimen using immunoassay [facility] Start: 08-07-2024 Admission procedure [facility] Start: 08-07-2024 Hospital admission, emergency, from emergency room, medical nature [facility] Start: 08-07-2024 [facility] Start: 08-07-2024 End: 08-07-2024 [facility] Start: 08-07-2024 Bacteria identified in Blood by Culture Blood Culture [facility] Start: 08-07-2024 Bacteria identified in Urine by Culture Urine Culture [facility] Start: 08-05-2024 Patient discharge [facility] Start: 07-24-2024 End: 07-24-2024 Patient encounter procedure 07/24/2024 11:00 AM EDT Office Visit [facility] [address] [place] [address] Amos Floyd MD [address] [place] [address] 6 month follow up [facility] Comment on above: 6 month follow up Start: 07-23-2024 Catheterization of left heart [facility] Start: 07-23-2024 Covid-19 Vaccine ( season) Covid-19 Vaccine () [facility] Start: 07-23-2024 End: 07-23-2024 Evaluation of diagnostic study results [facility] Start: 07-10-2024 End: 07-10-2024 Nursing evaluation of patient and report 07/10/2024 9:15 AM EDT Nurse Visit [facility] [address] [place] [address] Nurse, Ar [address] [place] [address] [facility] Comment on above: [facility] Start: 06-30-2024 Creatinine measurement Serum Creatinine [facility] Start: 06-29-2024 Annual PCP Team Chronic Disease Visit Annual PCP Team Chronic Disease Visit [facility] Start: 06-12-2024 Complete blood count Hemoglobin/Hematocrit [facility] Start: 06-12-2024 Creatinine measurement Serum Creatinine [facility] Start: 06-11-2024 Complete blood count Hemoglobin/Hematocrit [facility] Start: 06-11-2024 Creatinine measurement Serum Creatinine [facility] Start: 06-07-2024 Complete blood count Hemoglobin/Hematocrit [facility] Start: 06-07-2024 Creatinine measurement Serum Creatinine [facility] Start: 05-30-2024 Annual PCP Team Chronic Disease Visit Annual PCP Team Chronic Disease Visit [facility] Start: 05-25-2024 Complete blood count Hemoglobin/Hematocrit [facility] Start: 05-25-2024 Creatinine measurement Serum Creatinine [facility] Start: 05-22-2024 Annual PCP Team Chronic Disease Visit Annual PCP Team Chronic Disease Visit [facility] Start: 05-22-2024 Creatinine measurement Serum Creatinine [facility] Start: 05-11-2024 Creatinine measurement Serum Creatinine [facility] Start: 05-11-2024 DIABETES SCREEN DIABETES SCREEN [facility] Start: 05-11-2024 Diabetes Screening Diabetes Screening [facility] Start: 03-22-2024 Annual PCP Team Chronic Disease Visit Annual PCP Team Chronic Disease Visit [facility] Start: 03-22-2024 BP Controlled (<130/80) BP Controlled (<130/80) [facility] Start: 02-21-2024 Advance Directive Discussion Advance Directive Discussion [facility] Start: 02-21-2024 Medicare Advantage Annual Wellness Visit Medicare Advantage Annual Wellness Visit [facility] Start: 02-01-2024 End: 02-01-2024 Patient encounter procedure 02/01/2024 10:40 AM EST Appointment [facility] [address] [place] [address] Nodule of lower lobe of right lung [R91.1] [facility] Comment on above: Nodule of lower lobe of right lung [R91. 1] Start: 01-24-2024 End: 04-24-2024 Basic metabolic 2000 panel - Serum or Plasma BASIC METABOLIC PANEL Lab Routine Stage 3b chronic kidney disease (HCC) Expected: 01/24/2024, Expires: 04/24/2024 [facility] Work Phone: Comment on above: Expected: 01/24/2024, Expires: Start: 01-24-2024 End: 04-24-2024 Lipid 1996 panel - Serum or Plasma LIPID PANEL BASIC Lab Routine Pure hypercholesterolemia Expected: 01/24/2024, Expires: 04/24/2024 [facility] Comment on above: Expected: 01/24/2024, Expires: Start: 01-23-2024 End: 01-23-2024 Patient encounter procedure 01/23/2024 9:40 AM EST Office Visit [facility] [address] [facility] [place] [address] Amos Floyd MD [address] [place] [address] Medicare Wellness [facility] Comment on above: Medicare Wellness Start: 01-20-2024 Annual PCP Team Chronic Disease Visit Annual PCP Team Chronic Disease Visit [facility] Start: 01-20-2024 BP Controlled (<130/80) BP Controlled (<130/80) [facility] Start: 01-19-2024 Complete blood count Hemoglobin/Hematocrit [facility] Start: 01-19-2024 Creatinine measurement Serum Creatinine [facility] Start: 01-19-2024 Hemoglobin/Hematocrit Hemoglobin/Hematocrit [facility] Start: 01-19-2024 Hepatitis B surface antibody level LDL Cholesterol [facility] Start: 01-19-2024 Serum Creatinine Serum Creatinine [facility] Start: 01-11-2024 End: 01-11-2024 Nursing evaluation of patient and report 01/11/2024 2:00 PM EST Nurse [facility] [address] [place] [address] Nurse, Ar [address] [facility] [place] [address] prolia injection already approved. [facility] Comment on above: prolia injection already approved. Start: 12-29-2023 End: 12-29-2023 Patient encounter procedure 12/29/2023 9:30 AM EST Radiology RADIO ACTIONABLE [facility]INDINGS [facility] [address] [place] [address] Actionable Findings Phone Call [facility]IO ACTIONABLE [facility] Comment on above: Actionable Findings Phone Call Start: 10-27-2023 ANNUAL PCP TEAM CHRONIC DISEASE VISIT ANNUAL PCP TEAM CHRONIC DISEASE VISIT [facility] Start: 10-27-2023 BP CONTROLLED (<130/80) BP CONTROLLED (<130/80) [facility] Start: 10-22-2023 Covid-19 Vaccine () Covid-19 Vaccine () [facility] Start: 10-22-2023 Covid-19 Vaccine ( season) Covid-19 Vaccine ( season) [facility] Start: 10-22-2023 Influenza [facility] Start: 09-19-2023 End: 09-19-2023 ambulatory 09/19/2023 11:30 AM EDT OT/PT/Speech Visit [facility] [address] [place] [address] Kole El, PT [address] [place] [address] Physical deconditioning [R53.81]; Muscle weakness [M62.81]; Gait abnormality [R26.9] [facility] Comment on above: Physical deconditioning [R53.81]; Muscle weakness [M62.81]; Gait abnormality [R26.9] Start: 09-12-2023 End: 09-12-2023 ambulatory 09/12/2023 11:30 AM EDT OT/PT/Speech Visit [facility] [address] [place] [address] Kole El, PT [address] [place] [address] Physical deconditioning [R53.81]; Muscle weakness [M62.81]; Gait abnormality [R26.9] [facility] Comment on above: Physical deconditioning [R53.81]; Muscle weakness [M62.81]; Gait abnormality [R26.9] Start: 09-08-2023 End: 09-08-2023 ambulatory 09/08/2023 2:30 PM EDT OT/PT/Speech Visit [facility] [address] [place] [place] [address] Kole El, PT [address] [place] [address] Physical deconditioning [R53.81]; Muscle weakness [M62.81]; Gait abnormality [R26.9] [facility] Comment on above: Physical deconditioning [R53.81]; Muscle weakness [M62.81]; Gait abnormality [R26.9] Start: 09-05-2023 End: 09-05-2023 ambulatory 09/05/2023 3:00 PM EDT OT/PT/Speech Visit [facility] [address] [facility] [place] [address] Kole El, PT [address] [place] [address] Physical deconditioning [R53.81]; Muscle weakness [M62.81]; Gait abnormality [R26.9] [facility] Comment on above: Physical deconditioning [R53.81]; Muscle weakness [M62.81]; Gait abnormality [R26.9] Start: 08-30-2023 End: 08-30-2023 ambulatory 08/30/2023 3:00 PM EDT OT/PT/Speech Visit [facility] [address] [place] [place] [address] Kole El, PT [address] [place] [address] Physical deconditioning [R53.81]; Muscle weakness [M62.81]; Gait abnormality [R26.9] [facility] Comment on above: Physical deconditioning [R53.81]; Muscle weakness [M62.81]; Gait abnormality [R26.9] Start: 08-21-2023 End: 08-21-2023 ambulatory 08/21/2023 11:45 AM EDT OT/PT/Speech Visit [facility] [address] [place] [place] [address] Gisel Frost, MANAGEMENT ANALYST [address] [place] [address] Physical deconditioning [R53.81]; Muscle weakness [M62.81]; Gait abnormality [R26.9] [facility] Comment on above: Physical deconditioning [R53.81]; Muscle weakness [M62.81]; Gait abnormality [R26.9] Start: 08-15-2023 End: 08-15-2023 Patient encounter procedure 08/15/2023 3:30 PM EDT Office Visit [facility] [address] [place] [phone] Chastity Luke, DISEASE EDUCATION SPECIALIST.PILL PACKER [address] [place] [address] Hospital Follow up, elsi. [facility] Comment on above: Hospital Follow up, elsi. Start: 08-11-2023 End: 08-11-2023 Patient encounter procedure 08/11/2023 10:40 AM EDT Office Visit [facility] [address] [place] [address] Amos Floyd MD [address] [place] [address] 6 week follow-up [facility] Comment on above: 6 week follow-up Start: 08-09-2023 End: 08-09-2023 ambulatory 08/09/2023 9:15 AM EDT OT/PT/Speech Visit [facility] [address] [place] [address] Kole El, PT [address] [place] [address] R26.9 (ICD-10-CM) - Gait abnormality [facility] Comment on above: R26.9 (ICD-10-CM) - Gait abnormality Start: 08-02-2023 End: 08-02-2023 ambulatory [facility] Comment on above: R26.9 (ICD-10-CM) - Gait abnormality Start: 07-26-2023 End: 07-26-2023 ambulatory [facility] Comment on above: R26.9 (ICD-10-CM) - Gait abnormality Start: 07-21-2023 ANNUAL PCP TEAM CHRONIC DISEASE VISIT ANNUAL PCP TEAM CHRONIC DISEASE VISIT [facility] Start: 07-21-2023 BP CONTROLLED (<130/80) BP CONTROLLED (<130/80) [facility] Start: 07-20-2023 End: 07-20-2023 Patient encounter procedure 07/20/2023 1:40 PM EDT Office Visit [facility] [address] [place] [address] Amos Floyd MD [address] [place] [address] 6 month follow-up [facility] Comment on above: 6 month follow-up Start: 07-19-2023 End: 07-19-2023 ambulatory 07/19/2023 9:00 AM EDT OT/PT/Speech Visit [facility] [address] [place] [address] Kole El, PT [address] [place], [place] [id number] R26.9 (ICD-10-CM) - Gait abnormality [facility] Comment on above: R26.9 (ICD-10-CM) - Gait abnormality Start: 07-11-2023 End: 07-11-2023 ambulatory 07/11/2023 9:00 AM EDT OT/PT/Speech Visit [facility] [address] [place] [address] Kole El, PT [address] [place], [place] [id number] R26.9 (ICD-10-CM) - Gait abnormality [facility] Comment on above: R26.9 (ICD-10-CM) - Gait abnormality Start: 07-05-2023 End: 07-05-2023 ambulatory 07/05/2023 9:45 AM EDT OT/PT/Speech Visit [facility] [address] [place] [address] Kole El, PT [address] [facility] [address] R26.9 (ICD-10-CM) - Gait abnormality [facility] Comment on above: R26.9 (ICD-10-CM) - Gait abnormality Start: 07-01-2023 End: 09-30-2023 25-hydroxyvitamin D3 [Mass/volume] in Serum or Plasma VITAMIN D 25 HYDROXY Lab Routine Hypercalcemia Age-related osteoporosis with current pathological fracture with routine healing Expected: 07/01/2023, Expires: 09/30/2023 [facility] Comment on above: Expected: 07/01/2023, Expires: Start: 07-01-2023 End: 09-30-2023 Calcium.ionized [Moles/volume] in Blood CALCIUM, IONIZED Lab Routine Hypercalcemia Age-related osteoporosis with current pathological fracture with routine healing Expected: 07/01/2023, Expires: 09/30/2023 [facility] Comment on above: Expected: 07/01/2023, Expires: Start: 07-01-2023 End: 09-30-2023 Comprehensive metabolic 2000 panel - Serum or Plasma COMPREHENSIVE METABOLIC PANEL Lab Routine Hypercalcemia Age-related osteoporosis with current pathological fracture with routine healing Expected: 07/01/2023, Expires: 09/30/2023 [facility] Work Phone: Comment on above: Expected: 07/01/2023, Expires: 4 Start: 07-01-2023 End: 09-30-2023 Cortisol [Mass/volume] in Serum or Plasma CORTISOL, SERUM Lab Routine Hypokalemia Adrenal hypofunction (HCC) Expected: 07/01/2023, Expires: 09/30/2023 [facility] Comment on above: Expected: 07/01/2023, Expires: 4 Start: 07-01-2023 End: 09-30-2023 [facility] [place] SEND OUT TST 1 [facility] [place] SEND OUT TST 1 Lab Routine Age-related osteoporosis with current pathological fracture with routine healing Expected: 07/01/2023, Expires: 09/30/2023 [facility] Comment on above: Expected: 07/01/2023, Expires: Start: 07-01-2023 End: 09-30-2023 Parathyrin.intact [Mass/volume] in Serum or Plasma PTH INTACT Lab Routine Hypercalcemia Age-related osteoporosis with current pathological fracture with routine healing Expected: 07/01/2023, Expires: 09/30/2023 [facility] Comment on above: Expected: 07/01/2023, Expires: Start: 07-01-2023 End: 09-30-2023 Phosphate [Mass/volume] in Serum or Plasma PHOSPHORUS INORGANIC Lab Routine Hypercalcemia Age-related osteoporosis with current pathological fracture with routine healing Expected: 07/01/2023, Expires: 09/30/2023 [facility] Comment on above: Expected: 07/01/2023, Expires: Start: 06-30-2023 End: 06-30-2023 Patient encounter procedure 06/30/2023 9:40 AM EDT Office Visit [facility] [address] [place] [address] Amos Floyd MD [address] [place] [address] 1 month follow up with Dr. Amor [facility] Comment on above: 1 [address] Amor Start: 06-28-2023 End: 06-28-2023 ambulatory 06/28/2023 11:15 AM EDT OT/PT/Speech Visit [facility] [address], [place] [id number] Kole El, PT [address] [place], [place] [id number] R26.9 (ICD-10-CM) - Gait abnormality [facility] Comment on above: R26.9 (ICD-10-CM) - Gait abnormality Start: 06-21-2023 End: 06-21-2023 ambulatory 06/21/2023 1:00 PM EDT OT/PT/Speech Visit [facility] [address] [place] [address] Kole El, PT [address] [facility] [place] [address] R26.9 (ICD-10-CM) - Gait abnormality [facility] Comment on above: R26.9 (ICD-10-CM) - Gait abnormality Start: 05-23-2023 [facility] Start: 05-23-2023 End: 08-22-2023 Bacteria identified in Urine by Culture [facility] Work Phone: Comment on above: Expected: 05/23/2023, Expires: Start: 05-20-2023 Covid-19 Vaccine () Covid-19 Vaccine () [facility] Start: 05-15-2023 [facility] Start: 02-20-2023 Advance Directive Discussion Advance Directive Discussion [facility] Start: 02-20-2023 Behavioral Health Screening Behavioral Health Screening [facility] Start: 02-20-2023 Depression Assessment Depression Assessment [facility] Start: 01-06-2023 Hepatitis B surface antibody level LDL CHOLESTEROL [facility] Start: 12-21-2022 End: 02-20-2023 CBC panel - Blood by Automated count CBC Lab Routine Primary hypertension Stage 3b chronic kidney disease (HCC) Expected: 12/21/2022 (Approximate), Expires: 02/20/2023 [facility] Work Phone: Comment on above: Expected: 12/21/2022 (Approximate), Expi res: 02/20/2023 Start: 12-21-2022 End: 02-20-2023 Comprehensive metabolic 2000 panel - Serum or Plasma COMP METABOLIC PANEL Lab Routine Pure hypercholesterolemia Primary hypertension Expected: 12/21/2022 (Approximate), Expires: 02/20/2023 [facility] Work Phone: Comment on above: Expected: 12/21/2022 (Approximate), Expi res: 02/20/2023 Start: 12-21-2022 End: 02-20-2023 Lipid 1996 panel - Serum or Plasma LIPID PANEL BASIC Lab Routine Pure hypercholesterolemia Expected: 12/21/2022 (Approximate), Expires: 02/20/2023 [facility] Work Phone: Comment on above: Expected: 12/21/2022 (Approximate), Expi res: 02/20/2023 Start: 12-20-2022 ANNUAL PCP TEAM CHRONIC DISEASE VISIT ANNUAL PCP TEAM CHRONIC DISEASE VISIT [facility] Start: 12-06-2022 ANNUAL PCP TEAM CHRONIC DISEASE VISIT ANNUAL PCP TEAM CHRONIC DISEASE VISIT [facility] Start: 10-21-2022 Covid-19 Vaccine () Covid-19 Vaccine () [facility] Start: 10-21-2022 Influenza vaccination INFLUENZA (#1) [facility] Start: 07-20-2022 ANNUAL PCP TEAM CHRONIC DISEASE VISIT ANNUAL PCP TEAM CHRONIC DISEASE VISIT [facility] Start: 07-20-2022 BP CONTROLLED (<130/80) BP CONTROLLED (<130/80) [facility] Start: 05-11-2022 SERUM CREATININE SERUM CREATININE [facility] Start: 04-19-2022 COVID-19 VACCINE (6 - Pfizer series) COVID-19 VACCINE (6 - Pfizer series) [facility] Start: 02-20-2022 ADVANCE DIRECTIVE DISCUSSION ADVANCE DIRECTIVE DISCUSSION [facility] Start: 02-20-2022 DEPRESSION ASSESSMENT DEPRESSION ASSESSMENT [facility] Start: 12-20-2021 End: 02-19-2022 Lipid 1996 panel - Serum or Plasma LIPID PANEL BASIC Lab Routine Pure hypercholesterolemia Expected: 12/20/2021, Expires: 02/19/2022 [facility] Work Phone: Comment on above: Expected: 12/20/2021, Expires: Start: 11-20-2021 Prothrombin time [facility] Work Phone: Start: 11-19-2021 Prothrombin time [facility] Work Phone: Start: 11-18-2021 Partial thromboplastin time, activated [facility] Work Phone: Start: 11-18-2021 Patient discharge [facility] Work Phone: Start: 11-18-2021 Care planning and problem solving actions [facility] Work Phone: Start: 11-18-2021 Prothrombin time [facility] Work Phone: Start: 11-17-2021 End: 11-17-2021 Following clinical pathway protocol [facility] Work Phone: Start: 11-17-2021 Referral to service [facility] Work Phone: Start: 11-17-2021 Assessment of risk of venous thromboembolism [facility] Work Phone: Start: 11-17-2021 Consultation [facility] Work Phone: Start: 11-17-2021 Continuous pulse oximetry [facility] Work Phone: Start: 11-17-2021 Insertion of catheter into peripheral vein [facility] Work Phone: Start: 11-17-2021 Measuring intake and output [facility] Work Phone: Start: 11-17-2021 Providing care according to standard [facility] Work Phone: Start: 11-17-[address] [facility] Work Phone: Start: 11-17-2021 End: 11-17-2021 [facility] Work Phone: Start: 11-17-2021 Verification routine [facility] Work Phone: Start: 11-17-2021 Admission procedure [facility] Work Phone: Start: 11-17-2021 Blood chemistry [facility] Work Phone: Start: 11-17-2021 Patient referral to dietitian [facility] Work Phone: Start: 11-16-2021 [facility] Work Phone: Start: 11-16-2021 End: 11-16-2021 Blood culture [facility] Work Phone: Start: 10-21-2021 Influenza vaccination INFLUENZA (#1) [facility] Start: 10-13-2021 End: 10-27-2021 Influenza virus A and B RNA and SARS-CoV-2 (COVID-19) N gene panel - Respiratory specimen by NAN with probe detection COVID WITH FLUA+B, ROUTINE Microbiology Routine Suspected COVID-19 virus infection Expected: 10/13/2021, Expires: 10/27/2021 [facility] Work Phone: Comment on above: Expected: 10/13/2021, Expires: Start: 10-08-2021 Screening for osteoporosis Bone Density Screening [facility] Start: 09-14-2021 COVID-19 VACCINE (5 - Booster for Pfizer series) COVID-19 VACCINE (5 - Booster for Pfizer series) [facility] Start: 07-28-2021 Adult depression screening assessment DEPRESSION SCREENING [facility] Start: 06-09-2021 Hepatitis B surface antibody level LDL CHOLESTEROL [facility] Start: 05-11-2021 HEMOGLOBIN/HEMATOCRIT HEMOGLOBIN/HEMATOCRIT [facility] Start: 02-20-2021 ADVANCE DIRECTIVE DISCUSSION [facility] Start: 02-20-2021 DEPRESSION ASSESSMENT DEPRESSION ASSESSMENT [facility] Start: 08-30-2019 BP CONTROLLED (<130/80) BP CONTROLLED (<130/80) [facility] Start: 03-07-2019 Screening for osteoporosis Bone Density Scan [facility] Start: 2003 RSV Vaccine (1 - 1-dose 60+ series) RSV Vaccine (1 - 1-dose 60+ series) [facility] Start: 1961 Anxiety Screening Anxiety Screening [facility] Start: 1961 Depression Screening Depression Screening [facility] Start: 1961 Diabetes: Urine Albumin-Creatinine Ratio for Kidney Health Diabetes: Urine Albumin-Creatinine Ratio for Kidney Health [facility] Start: 1955 Depression Screening Depression Screening [facility] Start: 1943 Creatinine measurement Creatinine Level [facility] Start: 1943 Echocardiography Echocardiogram [facility] Start: 1943 Lipid panel Lipid Panel [facility] Start: 1943 Medicare Annual Wellness Visit Medicare Annual Wellness Visit (AWV) [facility] Start: 1943 Potassium measurement Potassium Level [facility] Start: 1943 Screening for osteoporosis Bone Density Scan [facility] Anion gap measurement [facility] Work Phone: Bacteria identified in Blood by Culture Blood Culture [facility] Work Phone: Bacteria identified in Urine by Culture BACTERIAL CULTURE, URINE Microbiology Routine Acute cystitis without hematuria 08/14/2024 12:22 PM EDT [facility] Work Phone: Bacteria identified in Urine by Culture BACTERIAL CULTURE, URINE Microbiology Routine History of UTI 08/29/2024 11:32 AM EDT [facility] Work Phone: Basic metabolic 2008 panel with ionized calcium - Serum or Plasma [facility] Bilirubin measuremen t, urine [facility] Work Phone: Bilirubin measuremen t, urine [facility] Blood culture [facility] Work Phone: BUN/Creatinine ratio [facility] Work Phone: Calcium [Mass/volume ] in Serum or Plasma [facility] Work Phone: Carbon dioxide, tota l [Moles/volume] in Serum or Plasma [facility] Work Phone: CBC W Auto Different ial panel - Blood [facility] Chloride [Moles/volu me] in Serum or Plasma [facility] Work Phone: Creatinine [Moles/volume] in Serum or Plasma [facility] Work Phone: End: 02-13-2025 CT Chest WO contrast CT CHEST WO IVCON Radiology Routine Nodule of lower lobe of right lung needing follor up CT 1 Occurrences starting 01/15/2024 until 02/13/2025 [facility] Work Phone: Comment on above: 1 Occurrences starting 01/15/2024 until 02/13/2025 CT Chest WO contrast CT CHEST WO IVCON Radiology Routine Nodule of lower lobe of right lung needing follor up CT 02/01/2024 11:20 AM EST [facility] Work Phone: End: 12-29-2024 DXA Skeletal system.axial Views for bone density DXA-AXIAL SKELETON Radiology Routine Age-related osteoporosis with current pathological fracture with routine healing 1 Occurrences starting 11/30/2023 until 12/29/2024 [facility] Work Phone: Comment on above: 1 Occurrences starting 11/30/2023 until 12/29/2024 ECG 12 lead - CLINIC PERFORMED ECG 12 lead - CLINIC PERFORMED CV ECG Routine Aortic valve stenosis, etiology of cardiac valve disease unspecified 09/19/2024 3:16 PM EDT [employer] Work Phone: ECG COMPLETE ECG COMPLETE ECG 10/29/2024 11:31 AM EDT [facility] Electrocardiogram, 12-lead PRN ACS symptoms Electrocardiogram, 12-lead PRN ACS symptoms ECG Routine As needed until discontinued starting 05/24/2023 [facility] Work Phone: Comment on above: As needed until discontinued starting Glucose [Mass/volume ] in Serum or Plasma [facility] Work Phone: Hematocrit [Volume Fraction] of Blood [facility] Work Phone: Hemoglobin [Mass/vol ume] in Blood [facility] Work Phone: Hemoglobin [Presence ] in Urine [facility] Work Phone: Hemoglobin [Presence ] in Urine [facility] INR in Blood by Coagulation assay [facility] Work Phone: Lactic acid measurement [facility] Leukocytes [#/volume ] in Blood [facility] Work Phone: Mean corpuscular hemoglobin concentration determination [facility] Work Phone: Mean corpuscular hemoglobin determination [facility] Work Phone: Measurement of keton es in urine using dipstick [facility] Work Phone: Measurement of keton es in urine using dipstick [facility] Measurement of renal function [facility] Work Phone: Microscopic urinalysis [facility] Work Phone: Microscopic urinalysis [facility] Neutrophil count [facility] Work Phone: Neutrophil percent differential count [facility] Work Phone: Organism count, microscopic method [facility] End: 05-24-2023 Parathyrin related protein [Moles/volume] in Serum or Plasma [facility] Work Phone: Comment on above: Once (Lab) for 1 Occurrences starting until 05/24/2023 End: 05-25-2023 Parathyrin related protein [Moles/volume] in Serum or Plasma PTH-Related Peptide Lab Routine Once (Lab) for 1 Occurrences starting 05/25/2023 until 05/25/2023 [facility] Work Phone: Comment on above: Once (Lab) for 1 Occurrences starting until 05/25/2023 Partial thromboplast in time, activated [facility] Work Phone: Partial thromboplast in time, activated [facility] Patient Education Hypercalcemia Dc [facility] Work Phone: Patient referral [facility] Work Phone: pH of Urine [facility] Work Phone: pH of Urine [facility] Platelets [#/volume] in Blood [facility] Work Phone: Potassium [Moles/vol ume] in Serum or Plasma [facility] Work Phone: Prothrombin time [facility] Work Phone: Prothrombin time [facility] Red blood cell count [facility] Work Phone: Red cell distributio n width determination [facility] Work Phone: End: 01-05-2023 Screening mammography bi 2-view breast inc cad TAE SCREENING Radiology Routine Encounter for screening mammogram for malignant neoplasm of breast 1 Occurrences starting 12/06/2021 until 01/05/2023 [facility] Work Phone: Comment on above: 1 Occurrences starting 12/06/2021 until 01/05/2023 Sodium [Moles/volume ] in Serum or Plasma [facility] Work Phone: Specific gravity of Urine [facility] Work Phone: Specific gravity of Urine [facility] TRANSCATHETER AORTIC VALVE REPLACEMENT (TAVR) TRANSCATHETER AORTIC VALVE REPLACEMENT (TAVR) Severe aortic stenosis [facility] TRANSCATHETER AORTIC VALVE REPLACEMENT (TAVR) - OR TRANSCATHETER AORTIC VALVE REPLACEMENT (TAVR) - OR Severe aortic stenosis [facility] Troponin T.cardiac [Mass/volume] in Serum or Plasma by High sensitivity method [facility] Urea nitrogen [Mass/volume] in Serum or Plasma [facility] Work Phone: End: 05-24-2023 Urinalysis complete panel - Urine Urinalysis with Reflex Microscopic Lab Routine Once (Lab) for 1 Occurrences starting 05/24/2023 until 05/24/2023 [facility] Work Phone: Comment on above: Once (Lab) for 1 Occurrences starting until 05/24/2023 Urinalysis, blood, qualitative [facility] Work Phone: Urine culture [facility] Urine dipstick for glucose [facility] Work Phone: Urine dipstick for glucose [facility] Urine dipstick for leukocyte esterase [facility] Work Phone: Urine dipstick for leukocyte esterase [facility] Urine dipstick for nitrite [facility] Work Phone: Urine dipstick for nitrite [facility] Urine dipstick for protein [facility] Work Phone: Urine dipstick for protein [facility] Urine examination [facility] Work Phone: Urine examination [facility] Urine microscopy: epithelial cells [facility] Work Phone: Urine microscopy: epithelial cells [facility] Urine microscopy: re d [facility] Urine Microscopy: wh ite [facility] Work Phone: Urobilinogen [Presen ce] in Urine [facility] Work Phone: Urobilinogen [Presen ce] in Urine [facility] End: 10-19-2025 US Kidney - bilateral and Urinary bladder US KIDNEY/BLADDER Radiology Routine Recurrent UTI History of kidney stones 1 Occurrences starting 09/19/2024 until 10/19/2025 [facility] Work Phone: Comment on above: 1 Occurrences starting 09/19/2024 until 10/19/2025 Vitamin D, 25-hydrox y measurement [facility] Work Phone: White blood cell count [facility] End: 01-27-2025 XR Chest PA and Lateral XR CHEST 2V FRONTAL/LAT Radiology STAT Abnormal finding of diagnostic imaging 1 Occurrences starting 12/29/2023 until 01/27/2025 [facility] Work Phone: Comment on above: 1 Occurrences starting 12/29/2023 until 01/27/2025 XR Chest PA and Lateral [facility] End: 01-18-2024 XR FOOT GENERAL 3V AP/LAT/OBL RIGHT XR FOOT GENERAL 3V AP/LAT/OBL RIGHT Radiology Routine Closed displaced fracture of fifth metatarsal bone of right foot, initial encounter 1 Occurrences starting 12/19/2022 until 01/18/2024 [facility] Work Phone: Comment on above: 1 Occurrences starting 12/19/2022 until 01/18/2024 XR FOOT GENERAL 3V AP/LAT/OBL RIGHT XR FOOT GENERAL 3V AP/LAT/OBL RIGHT Radiology Routine Closed displaced fracture of fifth metatarsal bone of right foot, initial encounter 01/18/2023 10:52 AM EST [facility] Work Phone: End: 11-25-2023 XR HIP BILATERAL 5V PEL/AP/LAT EACH HIP XR HIP BILATERAL 5V PEL/AP/LAT EACH HIP Radiology Routine Hip pain, unspecified laterality 1 Occurrences starting 10/26/2022 until 11/25/2023 [facility] Work Phone: Comment on above: 1 Occurrences starting 10/26/2022 until 11/25/2023 XR HIP BILATERAL 5V PEL/AP/LAT EACH HIP XR HIP BILATERAL 5V PEL/AP/LAT EACH HIP Radiology Routine Hip pain, unspecified laterality 10/26/2022 2:59 PM EDT [facility] Work Phone: [facility] Immunizations Immunization Date Immunization Notes Care Provider Fa [facility] 10-29-2024 influenza, high dose seasonal, preservative-free Amos Floyd MD Work Phone: [facility] 07-24-2024 COVID-19 vaccine, ag e 12+ yr (PFIZER-BIONTECH COMIRNATY) Amos Floyd MD Work Phone: [facility] 01-23-2024 COVID-19 vaccine, ag e 12+ yr (PFIZER-BIONTECH COMIRNATY) Amos Floyd MD Work Phone: [facility] 01-23-2024 influenza, high dose seasonal, preservative-free Amos Floyd MD Work Phone: [facility] 01-23-2024 influenza virus vacc ine, unspecified formulation Amos Floyd MD Work Phone: [facility] 01-19-2023 COVID-19 vaccine, ag e 12+ yr, season (PFIZER-BIONTECH) Amos Floyd MD Work Phone: [facility] Work Phone: 10-26-2022 influenza (HD-IIV4) vaccine, age 65+ yr, high dose, quadrivalent, PF (FLUZONE HIGH-DOSE) Amos Floyd MD Work Phone: [facility] 10-26-2022 influenza virus vacc ine, unspecified formulation Gisel Frost MANAGEMENT ANALYST Work Phone: [facility] 12-20-2021 COVID-19 booster vaccine, age 12+ yr, bivalent (PFIZER-BIONTECH) Rocio Older DISEASE EDUCATION SPECIALIST.PILL PACKER Work Phone: [facility] 11-18-2021 influenza, injectabl e, quadrivalent, contains preservative Elisa Mcdonough MD Work Phone: [facility] Work Phone: 11-17-2021 influenza, injectabl e, quadrivalent, preservative free Dr. Amos Floyd Work Phone: [facility] 11-17-2021 influenza, seasonal, injectable Dr. Amos Floyd Work Phone: [facility] 07-20-2021 COVID-19 vaccine, ag e 12+ yr (Advanced Telemetry-BIONTECH - LOPEZ TOP) Amos Floyd MD Work Phone: [facility] Work Phone: 12-26-2020 SARS-CoV-2, Unspecified Tino Mcdonough MD Work Phone: [facility] Work Phone: 12-09-2020 influenza, injectabl e, quadrivalent, contains preservative Elisa Mcdonough MD Work Phone: [facility] Work Phone: 11-20-2020 influenza, high-dose , quadrivalent vaccine (FLUZONE HIGH DOSE QUADRIVALENT) Amos Floyd MD Work Phone: [facility] Work Phone: 06-19-2020 COVID-19 vaccine, ag e 12+ yr (Advanced Telemetry-BIONTECH - PURPLE TOP) Amos Floyd MD Work Phone: [facility] Work Phone: 05-26-2020 COVID-19 vaccine, ag e 12+ yr (PFIZER-BIONTbrick&mobile - PURPLE TOP) Amos Floyd MD Work Phone: [facility] Work Phone: 02-17-2020 zoster vaccine recombinant Amos Floyd MD Work Phone: [facility] Work Phone: 11-17-2019 influenza, high dose seasonal, preservative-free Amos Floyd MD Work Phone: [facility] 11-17-2019 influenza, high-dose , quadrivalent vaccine (FLUZONE HIGH DOSE QUADRIVALENT) Amos Floyd MD Work Phone: [facility] Work Phone: 11-17-2019 zoster vaccine recombinant Amos Floyd MD Work Phone: [facility] Work Phone: 11-13-2019 influenza, injectabl e, quadrivalent, contains preservative Elisa Mcdonough MD Work Phone: [facility] Work Phone: 11-11-2019 tetanus toxoid, redu rk diphtheria toxoid, and acellular pertussis vaccine, adsorbed Dr. Amos Floyd Work Phone: [facility] 11-08-[address] Amos Floyd Work Phone: [facility] 11-08-2019 influenza, seasonal, injectable, preservative free Elisa Mcdonough MD Work Phone: [facility] Work Phone: 12-10-2018 influenza, high dose seasonal, preservative-free Amos Floyd MD Work Phone: [facility] Work Phone: 10-21-2018 influenza, injectabl e, quadrivalent, contains preservative Elisa Mcdonough MD Work Phone: [facility] Work Phone: 12-21-2017 pneumococcal vaccine , unspecified formulation Amos Floyd MD Work Phone: [facility] Work Phone: 11-02-2017 influenza, high dose seasonal, preservative-free Amos Floyd MD Work Phone: [facility] Work Phone: 10-27-2015 influenza, seasonal, injectable Amos Floyd MD Work Phone: [facility] 08-19-2015 tetanus and diphther ia toxoids, adsorbed, preservative free, for adult use (5 Lf of tetanus toxoid and 2 Lf of diphtheria toxoid) Amos Floyd MD Work Phone: [facility] 12-03-2014 influenza, high dose seasonal, preservative-free Amos Floyd MD Work Phone: [facility] 10-13-2014 influenza, seasonal, injectable Amos Floyd MD Work Phone: [facility] Work Phone: 10-13-2014 zoster vaccine, live Amos Floyd MD Work Phone: [facility] Work Phone: 03-20-2014 pneumococcal conjuga te vaccine, 13 valent Amos Floyd MD Work Phone: [facility] 11-20-2013 influenza, seasonal, injectable Amos Floyd MD Work Phone: [facility] 11-24-2012 influenza virus vacc ine, unspecified formulation Amos Floyd MD Work Phone: [facility] Work Phone: 11-13-[address] Amos Floyd Work Phone: [facility] 11-13-2012 influenza, seasonal, injectable, preservative free Amos Floyd MD Work Phone: [facility] Work Phone: 11-13-2012 pneumococcal Conjuga te, unspecified formulation Rocio Older DISEASE EDUCATION SPECIALIST.PILL PACKER Work Phone: [facility] 11-13-2012 pneumococcal polysaccharide vaccine, 23 valent Amos Floyd MD Work Phone: [facility] Work Phone: 11-13-[address] Oniel Floyd Work Phone: [facility] Work Phone: 11-13-2012 pneumococcal vaccine , unspecified formulation Dr. Amos Floyd Work Phone: [facility] 01-06-2012 influenza virus vacc ine, unspecified formulation Amos Floyd MD Work Phone: [facility] Work Phone: 05-03-2009 tuberculin skin test ; purified protein derivative solution, intradermal Xr [facility] Work Phone: [facility] 04-16-2009 novel influenza-H1N1 -09, all formulations Amos Floyd MD Work Phone: [facility] 07-18-2008 pneumococcal polysaccharide vaccine, 23 valent Amos Floyd MD Work Phone: [facility] Work Phone: 01-12-2007 influenza virus vacc ine, unspecified formulation Amos Floyd MD Work Phone: [facility] Work Phone: 12-14-2005 influenza virus vacc ine, unspecified formulation Amos Floyd MD Work Phone: [facility] Work Phone: 04-26-2005 tetanus and diphther ia toxoids, adsorbed, preservative free, for adult use (2 Lf of tetanus toxoid and 2 Lf of diphtheria toxoid) Amos Floyd MD Work Phone: [facility] Payers Date Payer Category Payer Medicare HMO [employer] MEDICARE ember [id number] 2023 Self-pay [id number] 2023 Medicare (Managed Care) 1.2. [id number] 2023 Private Health Insurance [id number] 2017 Medicare HUMANA MEDICARE HUMANA MEDICARE PPO [id number] 2017-Present [phone] [address] [address] [place] [address] PPO [id number] 2017 Medicare [id number]. [id number] 2017 Private Health Insurance [id number] 1945 Unknown [id number] 2.16.840.1.707045.3.579.2. 594 1945 Unknown [id number] 2.16.840.1.681288.3.579.2. 1246 Unknown [id number] 2.16.840.1.518088.3.579.2. 462 Unknown [id number] 2.16.840.1.329892.3.579.2. 462 Unknown [id number] 2.16.840.1.445105.3.579.2. 462 Unknown [id number] 2.16.840.1.633154.3.579.2. 462 Unknown [id number] 2.16.840.1.290557.3.579.2. 462 Unknown [id number] 2.16.840.1.159884.3.579.2. 462 Unknown [id number] 2.16.840.1.119497.3.579.2. 462 Unknown [id number] 2.16.840.1.998973.3.579.2. 462 Unknown [id number] 2.16.840.1.742180.3.579.2. 462 Unknown [id number] 2.16.840.1.756500.3.579.2. 462 Unknown [id number] 2.16.840.1.925082.3.579.2. 462 Unknown [id number] 2.840.1.523053.3.579.2. 462 Unknown [id number] 2..840.1.942764.3.579.2. 462 Unknown [id number] 2.840.1.019844.3.579.2. 462 Unknown [id number] 2.840.1.897502.3.579.2. 462 Unknown [id number] 2.16840.1.170217.3.579.2. 462 Unknown [id number] 2.840.1.592280.3.579.2. 462 Unknown [id number] 2.16.840.1.323157.3.579.2. 462 Unknown [id number] 2.16.840.1.053531.3.579.2. 462 Unknown [id number] 2.16.840.1.017462.3.579.2. 462 Unknown [id number] 2.16.840.1.036547.3.579.2. 462 Unknown [id number] 2.16.840.1.391125.3.579.2. 462 Unknown [id number] 2.16.840.1.745952.3.579.2. 462 Unknown [id number] 2.16.840.1.826405.3.579.2. 462 Unknown [id number] 2.16.840.1.170922.3.579.2. 462 Unknown [id number] 2.16.840.1.282091.3.579.2. 462 Unknown [id number] 2.16.840.1.154766.3.579.2. 462 Unknown [id number] 2.16.840.1.396679.3.579.2. 462 Unknown [id number] 2.16.840.1.856441.3.579.2. 462 Unknown [id number] 2.16.840.1.225963.3.579.2. 462 Unknown [id number] 2.16.840.1.813248.3.579.2. 462 Unknown [id number] 2.16.840.1.759262.3.579.2. 462 Unknown [id number] 2.16.840.1.316780.3.579.2. 462 Unknown [id number] 2.16.840.1.565211.3.579.2. 462 Social History Date Type Detail Facility Start: 2021 End: 05-23-2023 Tobacco smoking status NHIS Unknown if ever smoked [facility] Start: 06-20-2020 None [facility] Start: 06-20-2020 Homeless [facility] Start: 06-20-2020 Secondhand [facility] Start: 1945 Sex Assigned At Female [facility] Start: 10-13-2021 End: 09-02-2024 Tobacco smoking status NHIS Never smoked tobacco [facility] Work Phone: Start: 07-20-2021 End: 09-19-2024 Alcohol intake Current non-drinker of alcohol (finding) [facility] Start: 1945 Sex Assigned At Not on file [facility] Start: 07-10-2021 End: 05-24-2023 Exposure to SARS-CoV-2 (event) Not sure [facility] Work Phone: Start: 10-13-2021 End: 09-02-2024 Tobacco use and exposure Smokeless tobacco non-user [facility] Start: 07-20-2022 End: 11-28-2024 History of Social function [facility] Work Phone: Start: 07-20-2022 End: 11-28-2024 Tobacco use panel [facility] Work Phone: Start: 01-22-2012 Adult Depression Screening Assessment 0 [facility] Work Phone: How often to you hav e a drink containing alcohol? Never [facility] Work Phone: How hard is it for y ou to pay for the very basics like food, housing, medical care, and heating Not very hard [facility] Work Phone: In the past 12 month s, was there a time when you were not able to pay the mortgage or rent on time? No [facility] Work Phone: (I/We) worried naomi er (my/our) food would run out before (I/we) got money to buy more. Never true [facility] Start: 09-20-2021 End: 05-20-2024 Sex Female (finding) [facility] Start: 09-03-2024 End: 11-28-2024 Alcoholic beverage intake Lifetime non-drinker (finding) [employer] [facility] Procedure Code Equipment Code Equipment Origin al Text Equipment Identifier Dates Valve Aor Phong 3 Ultra 23mm - [id number] - [id number] Start: 10-23-2024 Device Closure Perclose 6fr - [id number] Start: 10-23-2024 Device Closure Perclose 6fr - [id number] Start: 10-23-2024 Device Closure Vascade 6/7fr - [id number] Start: 10-23-2024 Comment on above: Description: Placed in right IJ Goals Date Patient Goal Desired Activity /State Personal health goal Functional Status Date Assessment Result Facility 11-28-2024 Patient Health [facility] ionnaire 2 item (PHQ-2) [Reported] [facility] 08-09-2024 Functional status Chair [facility] Work Phone: 06-13-2023 Are you deaf, or do you have serious difficulty hearing No 06/13/2023 12:43 PM Elizabeth Rolle RN No [facility] 06-13-2023 Are you blind, or do you have serious difficulty seeing, even when wearing glasses No 06/13/2023 12:43 PM Elizabeth Rolle RN [facility] 06-13-2023 Do you have serious difficulty walking or climbing stairs No 06/13/2023 12:43 PM Elizabeth Rolle RN [facility] 06-13-2023 Do you have difficul ty dressing or bathing No 06/13/2023 12:43 PM Elizabeth Rolle RN [facility] 06-13-2023 Because of a physica l, mental, or emotional condition, do you have difficulty doing errands alone such as visiting a physician's office or shopping No 06/13/2023 12:43 PM Elizabeth Rolle RN [facility] 11-18-2021 Functional status Ambulates [facility] Work Phone: 11-17-2021 Functional status Bedrest [facility] Work Phone: Mental Status Date Assessment Result Facility 08-09-2024 Cognitive function Voice/Name [facility] Work Phone: 08-07-2024 Cognitive function Level Of Cons ciousness Awake;Alert;Appropriate;Fol lows Commands [facility] Work Phone: 06-13-2023 Because of a physica l, mental, or emotional condition, do you have serious difficulty concentrating, remembering, or making decisions No 06/13/2023 12:43 PM Elizabeth Rolle RN No [facility] 05-31-2023 Cognitive function Voice/Name [facility] Work Phone: 05-23-2023 Cognitive function Level Of Cons ciousness Awake;Alert;Appropriate [facility] Work Phone: 05-15-2023 Cognitive function Level Of Cons ciousness Awake;Alert;Appropriate;Fol lows Commands [facility] Work Phone: 11-25-2022 Cognitive function Awake;Alert;A ppropriate;Fol lows Commands [facility] Work Phone: 05-27-2022 Cognitive function Awake;Alert;A ppropriate;Fol lows Commands [facility] Work Phone: 11-26-2021 Cognitive function Awake;Alert;A ppropriate;Fol lows Commands [facility] Work Phone: 11-18-2021 Cognitive function Voice/Name;To uch/Shaking;Li ght Pain;Deep Pain [facility] Work Phone: 11-16-2021 Cognitive function Level Of Cons ciousness Awake;Alert;Appropriate;Fol lows Commands [facility] Work Phone: 05-27-2021 Cognitive function Level Of Cons ciousness Awake;Alert [facility] Work Phone: Clinical Notes 04-20-2009 to 12-28-2024 Basim Joel APRN [facility] - 11/28/2024 11:00 AM Carito Joel APRN [facility] - 11/28/2024 11:00 AM Carito Joel APRN [facility] - 10/31/2024 11:00 AM EDTPatient Instructions Note Date & Type Note Facility 12-28-2024 Note [facility] 11-28-2024 History of Present illness Narrative Images from the original note were not included. [facility] - [address] [address] Dept: [phone] Dept Visit type: Established : 1945 Reason for Visit: Cardiac Valve Problem Assessment and Plan 1. Chronic systolic heart failure (HCC) Class III. Category C Continue metoprolol. Resume Lisinopril 5 mg daily. I will have her see the heart failure team given her severe LV dysfunction, Ritchie's disease, and CKD. 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 Na/K have remained [...] mm Hg). She had an admission at [facility] in July for [...] specialty: Independent interpretation of tests: Basim Joel, DISEASE EDUCATION SPECIALIST - TELLY [1] Allergies Allergen Reactions Amlodipine [...] Rfl: [3] Past Medical History: Diagnosis Date Ritchie anemia 2010 [4] Past Surgical History: Procedure Laterality Date BLADDER REPAIR CARDIAC CATHETERIZATION N/A 10/23/2024 Performed by Memo Canas MD at [facility] OR CYSTECTOMY (HISTORICAL) LAPAROSCOPIC NEPHRECTOMY (HISTORICAL) Left TOTAL ABDOMINAL HYSTERECTOMY [5] Family History Problem Relation Name Age of Onset Heart attack Mother Stroke Father documented in this encounter [facility] 11-28-2024 History of Present illness Narrative Images from the original note were not included. [facility] [address] [address] Dept: [phone] Dept Visit type: Established : 1945 Reason for Visit: Cardiac Valve Problem Assessment and Plan 1. Chronic systolic heart failure (HCC) Class III. Stage C Continue metoprolol. Resume Lisinopril 5 mg daily. I will have her see the heart failure team given her severe LV dysfunction, Ritchie's disease, and CKD. 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 Na/K have remained stable [address] Adorno- est heart failure Subjective Ms Peralta is an 79 yr old female known to Dr. 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 She had an admission at [facility] in July for [...] specialty: Independent interpretation of tests: Basim Joel, DISEASE EDUCATION SPECIALIST - PILL PACKER [1] Allergies Allergen Reactions Amlodipine Swelling Ciprofloxacin [...] Rfl: [3] Past Medical History: Diagnosis Date Ritchie anemia 2010 [4] Past Surgical History: Procedure Laterality Date BLADDER REPAIR CARDIAC CATHETERIZATION N/A 10/23/2024 Performed by Memo Canas MD at [facility] OR CYSTECTOMY (HISTORICAL) LAPAROSCOPIC NEPHRECTOMY (HISTORICAL) Left TOTAL ABDOMINAL HYSTERECTOMY [5] Family History Problem Relation Name Age of Onset Heart attack Mother Stroke Father documented in this encounter [facility] 11-14-2024 Progress note [facility] 10-31-2024 History of Present illness Narrative Images from the original note were not included. [facility] [address] [address] Dept: [phone] Dept Visit type: Established : 1945 Reason for Visit: Cardiac Valve Problem and Hospital Follow-up Assessment and Plan 1. Severe aortic stenosis S/p TAVR. Contiue Eliquis, SBE prophylaxis.Echo one month 2. 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 Chronic [...] a PMH for CAD, HPL, DVT, PE, Ritchie's disease, CKD s/p left nephrectomy (donated) and [...] interpretation of tests: Basim Joel, LIDIA - PILL PACKER [1] Allergies Allergen Reactions Amlodipine Swelling Ciprofloxacin [...] Rfl: [3] Past Medical History: Diagnosis Date Ritchie anemia 2010 [4] Past Surgical History: Procedure Laterality Date BLADDER REPAIR CARDIAC CATHETERIZATION N/A 10/23/2024 Performed by Memo Canas MD at [facility] OR CYSTECTOMY (HISTORICAL) LAPAROSCOPIC NEPHRECTOMY (HISTORICAL) Left TOTAL ABDOMINAL HYSTERECTOMY [5] Family History Problem Relation Name Age of Onset Heart attack Mother Stroke Father documented in this encounter [facility] 10-31-2024 Instructions LIDIA Patel CNP - 10/31/2024 11:00 AM EDT If weight gain greater than 3lbs/24 hours or > 5lbs in one week. Take 1/2 Lasix (furosemide) documented in this encounter [facility] 10-31-2024 Miscellaneous Notes Addended by: JAQUELIN MONCADA on: 10/31/2024 02:58 PM Modules accepted: Orders documented in this encounter [facility] 10-31-2024 Note Addended by: JAQUELIN CARBONE on: 10/31/2024 02:58 PM Modules accepted: Orders [facility] 10-31-2024 Note Addended by: JAQUELIN CARBONE on: 10/31/2024 02:58 PM Modules accepted: Orders [facility] 10-29-2024 Note HNO ID: [id number] Author: AMOS FLOYD MD Service: ? Author Type: Physician Type: Progress Notes Filed: 10/29/2024 12:03 Note Text: Subjective Linda Peralta is a 79 year old female here with her daughter. She had TAVR at [facility] last week. She had some fluid retention prior to surgery and was prescribed furosemide 40 mg daily for 3 days with weight loss of around 20 pounds. She started regaining weight and was again advised 2 days of furosemide last week. Echo last week showed EF dropped to 20%. They have another echocardiogram scheduled. She has a follow up with [facility] this , and the [facility] later this month. ACTIVE PROBLEM [...] I35.0 - See #1. Amos Floyd MD [facility] 10-29-2024 History of Present illness Narrative Subjective Linda Peralta is a 79 year old female here with her daughter. She had TAVR at [facility] last week. She had some fluid retention prior to surgery and was prescribed furosemide 40 mg daily for 3 days with weight loss of around 20 pounds. She started regaining weight and was again advised 2 days of furosemide last week. Echo last week showed EF dropped to 20%. They have another echocardiogram scheduled. She has a follow up with [facility] this , and the [facility] later this month. ACTIVE PROBLEM [...] Amos Floyd MD documented in this encounter [facility] 10-28-2024 Telephone encounter Note Per TVT registry guidelines, 5 meter walk test completed in office on 09/03/24. 7 seconds, 7 seconds, 7 seconds [facility] 10-28-2024 Miscellaneous Notes Per TVT registry guidelines, 5 meter walk test completed in office on 09/03/24. 7 seconds, 7 seconds, 7 seconds Letter refaxed to [phone] along w/ [facility] chart note. Confirmation 10/16/24 at 3:07p Confirmed 10/22/2024 at 3:59p Spoke with Dr. Gregory's office to follow-up on IV hydrocortisone dosing. Did not receive fax from last week, confirmed number of [phone]. Requested patient will need to have telephone visit at [address] Gregory to review instructions. Requested to have OV note and letter re-faxed to the above number. Will provide valve clinic fax number so Dr. Gregory's office can fax recommendations back Approved per fax. Scanned in under [employer]. Approval [id number] Sched on all 3 calendars and requested on [employer]. Pre TAVR phone call placed. Reviewed, procedure, instructions and meds. Pt verbalizes understanding. Pt knows to call [phone] with any concerns. Patient states she is going to warehouse pick[facility] Lovenox today. DISEASE EDUCATION SPECIALIST notified to complete prep for proc Diagnosis: Aortic Stenosis Procedure being done: TAVR Date/time of procedure: 10/23/24 at 7:30 am Surgeon: Dr. Canas 2nd surgeon: Dr. Self Admission type: To be admitted Anesthesia: MAC Completed: BMP, CBC, CTA, H&P Date completed: 10/17/24 Additional orders Type and screen AM of proc Labs scanned under Media Requested lab from [facility]. She is faxing them to [facility]. Pending on [employer] using documistic telephone visit from yesterday. Pending# [id number] [facility] and Kishore chart note faxed to [phone] and confirmed PC to Dr. Gregory office. Requesting fax regarding medication recommendation sent to [phone]. Will discuss with Jo Levy. PC to dr Gregory office. Placed on hold and disconnected. Will try again later. Reviewed plan for bridging with [facility] pharmacist. Patient's CrCl is 31. She advised lovenox 40 mg BID for bridging. -patient will take last dose of Eliquis on 10/19/24 -starting on 10/20/24, patient will start lovenox 40 mg BID -she will take her last dose of lovenox morning of 10/22. -No lovenox the evening of 10/22 or morning of 10/23 Lab order faxed to [facility] [phone]/confirmed I need PB to please finish his chart note so I can submit this auth Spoke with patient, she will have labs drawn tomorrow at [facility]. Will have laboratory secretary fax lab orders over Reviewed lab work with Butch Gupta APRN, will have patient hold lisinopril until after procedure. Okay to proceed with TAVR, pended case request Spoke with patient verbalized understanding of medication change. Agreed to below procedure date/time. Dx: Severe Aortic stenosis Procedure: TAVR Date/Time: 10/23/24 at 7:30 am Surgeon: Dr. Canas/ Dr. self Location: [facility] Ad[facility] Anesthesia: DEVANG Levy notified to schedule procedure and obtain insurance auth. Patient scheduled for telephone visit for H&P update and to review bridging instructions 10/16. Reviewed TAVR teach instructions while patient was on the phone. TAVR procedure, instructions reviewed with pt Patient scheduled for TAVR on 10/23/24 at 7:30 am Will report to [facility] by 5:30 am Can park in the [facility] Parking Deck or use [employer] parking at the [facility] entrance Plan on overnight stay in the hospital Will not be able to drive for 1 week after procedure Will receive moderate sedation through the IV, will be relaxed but awake during the procedure Nothing to eat or drink after midnight Hold all morning medications Will call with any questions/concerns Patient/family verbalized understanding. Patient is scheduled for TAVR on 10/23/24. -Reviewed bridging with [facility] pharmacist. Patient current CrCl is [...] with TAVR. BMP results from 10/03/24 at [facility] show creatinine 1.82 with GRF 28. Will have DISEASE EDUCATION SPECIALIST review and place TAVR case request if appropriate documented in this encounter [facility] 10-24-2024 Nurse Note All discharge instructions gone over with pt and family. Med rec revoewed in depth. All restrictions, activity, site care and precautions gone over along with appointments. Saline lock removed. To daughters car via wheelchair, discharged home. [facility] 10-24-2024 Nurse Note All discharge instructions gone [...] eating her Breakfast. documented in this encounter [facility] 10-24-2024 Note [facility] [address] Dept: [phone] Dept Visit type: Established : 1945 Reason for Visit: Cardiac Valve Problem and Hospital Follow-up Assessment and Plan 1. Severe aortic stenosis S/p TAVR. Contiue Eliquis, SBE prophylaxis.Echo one month 2. 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 Chronic [...] Rfl: [3] Past Medical History: Diagnosis Date Ritchie anemia 2010 [4] Past Surgical History: Procedure Laterality Date BLADDER REPAIR CARDIAC CATHETERIZATION N/A 10/23/2024 Performed by Memo Canas MD at [facility] OR CYSTECTOMY (HISTORICAL) LAPAROSCOPIC NEPHRECTOMY (HISTORICAL) Left TOTAL ABDOMINAL HYSTERECTOMY [5] Family History Problem Relation Name Ag (more content not included)... [facility] 10-24-2024 Note Attestation signed by Memo [...] discharge. Referral has been made to the [facility] Outpatient Cardiac Rehabilitation Program. (more content not included)... [facility] 10-24-2024 Hospital Discharge instructions LIDIA Mon CNP - 10/24/2024 8:35 AM EDT - Please call the Heart Valve Clinic with any questions: [phone] -You will have have the following follow [...] unless otherwise specified. documented in this encounter [facility] 10-24-2024 History of Present illness Narrative Images from the original note were not included. PHYSICAL THERAPY [facility] Name/MRN: Linda Peralta ([id number]) Date: 10/24/2024 PT orders received per Oniel activity/mobility score. Patient currently with Oniel activity/mobility score greater than 2. Per therapy services guidelines, will discharge PT orders. Please place regular PT eval/treat orders if deemed appropriate. Shea Perez, PT documented in this encounter [facility] 10-24-2024 Nurse Note Pt had a restful night and even got up the the bathroom during the night with standby assist. Pt is up in a chair eating her Breakfast. 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 Unable to discuss Phase II Cardiopulmonary Rehab Referral with Linda Peralta at this time. Will follow to discuss program when appropriate. Patient will be contacted at home if discharged prior to discussion. [id number] NoteReceived referral and reviewed chart. Unable to discuss Phase II Cardiopulmonary Rehab Referral with Linda Peralta at this time. Will follow to discuss program when appropriate. Patient will be contacted at home if discharged prior to discussion. [facility]09-03-2025 Consult note* Juan Alberto Tena - 10/23/2024 12:25 PM EDT Associated Order(s): IP CONSULT TO CARDIAC REHAB Received referral and reviewed chart. Unable to discuss Phase II Cardiopulmonary Rehab Referral with Linda Peralta at this time. Will follow to discuss program when appropriate. Patient will be contacted at home if discharged prior to discussion. documented in this [facility]09-03-2025 NotePatient: Linda Peralta Procedure Summary Date: 10/23/24 Room / Location: [facility] Operating Room Anesthesia Start: 733 Anesthesia Stop: [...] discharged once all PACU criteria has been met.[facility]09-03-2025 NotePatient: Linda Peralta Procedure Summary Date: 10/23/24 Room / Location: [facility] Operating Room Anesthesia Start: 0734 Anesthesia Stop: [...] Allowed opportunity for questions and acknowledgement of understanding.[facility]09-03-2025 NoteArterial Line: Date/Time: 10/23/2024 8:35 AM [...] Staffing Performed: Other Other staff: Memo Canas, [facility]09-03-2025 NoteH&P reviewed. The patient was examined and there are no changes to the H&P.[place] [address]-03-2025 NoteH&P reviewed. The patient was examined and there are no changes to the H&P.[place] 77221-03-2025 Procedure note* Op Note - William Self DO - 10/23/2024 7:34 AM EDT CARDIOTHORACIC SURGERY--OPERATIVE NOTE Date: 10/23/24 Preoperative diagnosis: Severe symptomatic aortic stenosis Chronic diastolic congestive heart failure Frailty Postoperative diagnosis: Severe symptomatic aortic stenosis Chronic diastolic congestive heart failure Frailty Surgeon: Rocky Self DO Studio Manager: Memo Canas MD Procedure: Transcatheter aortic valve [...] Disposition: Stable to ICU Rocky Self DO [facility] Cardiothoracic Surgery [employer] [facility] Phone: 1(180) 370-179109-03-2025 Miscellaneous Notes* Op Note - William Self DO - 10/23/2024 7:34 AM EDT CARDIOTHORACIC SURGERY--OPERATIVE NOTE Date: 10/23/24 Preoperative diagnosis: Severe symptomatic aortic stenosis Chronic diastolic congestive heart failure Frailty Postoperative diagnosis: Severe symptomatic aortic stenosis Chronic diastolic congestive heart failure Frailty Surgeon: Rocky Self DO Studio Manager: Memo Canas MD Procedure: Transcatheter aortic valve [...] Disposition: Stable to ICU Rocky Self DO [facility] Cardiothoracic Surgery * Pre-Procedure Note - Jacinda [...] Called for chest X-RAY documented in this [facility]09-03-2025 Evaluation note* Pre- Procedure Note - Jacinda Jackman RN - 10/23/2024 7:[address] Canas contacted about pre-procedure steroid not ordered. No new orders at this time for 0730 case. [facility] [id number] Evaluation note* Pre-Procedure Note - Jacinda Jackman RN - 10/23/2024 6:21 AM EDT X-ray to bedside T [facility] [id number] Evaluation note* Pre-Procedure Note - Jacinda Jackman RN - 10/23/2024 6:03 AM EDT Called for chest X-RAY [facility]09-02-2025 NotePatient: Linda Peralta Procedure Information Date/Time: 10/23/24729 Procedures: TRANSCATHETER AORTIC VALVE REPLACEMENT, TRANSTHORACIC ECHOCARDIOGRAM TRANSCATHETER AORTIC VALVE REPLACEMENT, TRANSTHORACIC ECHOCARDIOGRAM (Chest) Location: [facility] Operating Room Surgeons: Memo Canas MD; William [...] cath under media Goldie Rojas APRN - PILL PACKER GALA Screening Labs: No results found for: [...] Age of Onset Heart attack Mother Stroke [facility]09-02-2025 Telephone encounter Note* Telephone Encounter - Jewels Levy - 10/22/2024 2:51 PM EDT Letter refaxed to [phone] [facility]. Confirmation 10/16/24 at 3:07p Confirmed 10/22/2024 at 3:59p [facility] CenterYelgun02-50-3238 Telephone encounter Note* Telephone Encounter - Desirae Martinez RN - 10/22/2024 10:39 AM EDT Spoke with Dr. Gregory's office to follow-up on IV hydrocortisone dosing. Did not receive fax from last week, confirmed number of [phone]. Requested patient will need to have telephone visit at [address] Gregory to review instructions. Requested to have OV note and letter re-faxed to the above number. Will provide valve clinic fax number so Dr. Gregory's office can fax recommendations back [facility] CenterWabooh19-16-8160 Telephone encounter Note* Telephone Encounter - Jewels Levy - 10/22/2024 9:42 AM EDT Approved per fax. Scanned in under [employer]. Approval [id number] Sched on all 3 calendars and requested on [employer]. [facility] [id number] History and physical note* Dylon Gupta APRN - [facility] - 10/22/2024 8:32 AM EDT H+ P copied to chart from (office provider's name Dylon Gupta APRN) progress note dated 10/16/24 onbehalf of (procedural physician's name Dr. Canas). [facility] Telehealth Cardiology Note DATE of [...] dyspnea with moderate activity. No CAD per [facility]. Weight 156 lbs. Last clinic visit [...] [Medical History] Past Medical History Diagnosis Date Ritchie anemia 2010 Past Surgical History [Surgical History] [...] redirect to the Timeline version of the [employer] SmartLink. Limited Telehealth exam Constitutional: [x]Alert [x]Oriented [...] or 3b CKD (HCC) CKD followed by aed trainer Dr. Tarango in [place]. Most recent BMP showed SCr 1.61 with CrCl 31. 3. Acute deep vein thrombosis (DVT) of right lower extremity, unspecified vein (HCC) Questionable IVC filter. Currently on Eliquis. Per daughter, LE edema has improved. Post TAVR, willrefer patient to Dr. Gaffney-vascular. We reached out to [facility] for recommendations on bridging. Will stop [...] a day for 2 days only. 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 Will reach out to housing liaison Dr. Gregory in [place] ([phone]). for recommendations on IV hydrocortisone prior to [...] patient and provider is done in the [facility] from the [facility] supported by [employer]. Cosigned by Memo Canas MD at 11/01/2024 9:49 PM EDT [employer] [id number] History and physical note* LIDIA Mon CNP - 10/22/2024 8:32 AM EDT H+ P copied to chart from (office provider's name Dylon Gupta APRN) progress note dated 10/16/24 onbehalf of (procedural physician's name Dr. Canas). [facility] Telehealth Cardiology Note DATE of SERVICE: 10/16/24 TIME of SERVICE: 12:45 PM Chief Complaint: Chief Complaint Patient presents with Follow-up History of Present Illness: Linda Peralta is a 79 y.o. female known to Dr. Marte with a history for CAD, HPL, DVT, PE, Ritchie's disease, CKD s/p left nephrectomy (donated) and [...] dyspnea with moderate activity. No CAD per [facility]. Weight 156 lbs. Last clinic visit [...] redirect to the Timeline version of the [facility] SmartLink. Limited Telehealth exam Constitutional: [x]Alert [...] or 3b CKD (HCC) CKD followed by aed trainer Dr. Tarango in [place]. Most recent BMP showed SCr 1.61 with CrCl 31. 3. Acute deep vein thrombosis (DVT) of right lower extremity, unspecified vein (HCC) Questionable IVC filter. Currently on Eliquis. Per daughter, LE edema has improved. Post TAVR, willrefer patient to Dr. Gaffney-vascular. We reached out to [facility] for recommendations on bridging. Will stop [...] 10 mg TID. Will reach out to housing liaison Dr. Gregory in [place] ([phone]). for recommendations on IV hydrocortisone prior to [...] patient and provider is done in the [facility] from the [facility] supported by [facility]. Cosigned by Memo Canas MD at 11/01/2024 9:49 PM EDT documented in this [facility]09-02-2025 NoteH+ P copied to chart from (office provider's name Dylon Gupta APRN) progress note dated 10/16/24 on behalf of (procedural physician's name Dr. Canas). [facility] Telehealth Cardiology Note DATE of SERVICE: 10/16/24 TIME of SERVICE: 12:45 PM Chief Complaint: Chief Complaint Patient presents with Follow-up History of Present Illness: Linda Peralta is a 79 y.o. female known to Dr. Marte with a history for CAD, HPL, DVT, PE, Ritchie's disease, CKD s/p left nephrectomy (donated) and [...] [Medical History] Past Medical History Diagnosis Date Ritchie anemia 2010 Past Surgical History [Surgical History] [...] redirect to the Timeline version of the [employer] Smart[employer]. Limited Telehealth exam Constitutional: [x]Alert [x]Oriented [...] disease, unspecified whether st (more content not included)...[facility] [employer] [facility] [id number] NoteH+ P copied to chart from (office provider's name Dylon Gupta APRN) progress note dated 10/16/24 on behalf of (procedural physician's name Dr. Canas). [facility] Telehealth Cardiology Note DATE of SERVICE: 10/16/24 TIME of SERVICE: 12:45 PM Chief Complaint: Chief Complaint Patient presents with Follow-up History of Present Illness: Linda Peralta is a 79 y.o. female known to Dr. Marte with a history for CAD, HPL, DVT, PE, Ritchie's disease, CKD s/p left nephrectomy (donated) and [...] dyspnea with moderate activity. No CAD per [facility]. Weight 156 lbs. Last clinic visit [...] [Medical History] Past Medical History Diagnosis Date Ritchie anemia 2010 Past Surgical History [Surgical History] [...] redirect to the Timeline version of the [facility] SmartLink. Limited Telehealth exam Constitutional: [x]Alert [...] disease, unspecified whether st (more content not included)...[facility]08-29-2025 NotePre TAVR phone call placed. Reviewed, procedure, instructions and meds. Pt verbalizes understanding. Pt knows to call [phone] with any concerns. Patient states she is going to warehouse picker Lovenox today. DISEASE EDUCATION SPECIALIST notified to complete prep for proc Diagnosis: Aortic Stenosis Procedure being done: TAVR Date/time of procedure: 10/23/24 at 7:30 am Surgeon: Dr. Canas 2nd surgeon: Dr. Self Admission type: To be admitted Anesthesia: MAC Completed: BMP, CBC, CTA, H&P Date completed: 10/17/24 Additional orders Type and screen AM of [facility] 10-18-2024 Telephone encounter Note* Telephone Encounter - Shilpi Cook RN - 10/18/2024 4:56 PM EDT Pre TAVR phone call placed. Reviewed, procedure, instructions and meds. Pt verbalizes understanding. Pt knows to call [phone] with any concerns. Patient states she is going to warehouse picker Lovenox today. DISEASE EDUCATION SPECIALIST notified to complete prep for proc Diagnosis: Aortic Stenosis Procedure being done: TAVR Date/time of procedure: 10/23/24 at 7:30 am Surgeon: Dr. Canas 2nd surgeon: Dr. Self Admission type: To be admitted Anesthesia: MAC Completed: BMP, CBC, CTA, H&P Date completed: 10/17/24 Additional orders Type and screen AM of proc [facility] [id number] Telephone encounter Note* Telephone Encounter - Jewels Levy - 10/18/2024 3:56 PM EDT Labs scanned under Media [place] [id number] Telephone encounter Note* Telephone Encounter - Jewels Levy - 10/18/2024 3:34 PM EDT Requested lab from [facility]. She is faxing them to [employer]. [facility] CenterZjdbbs05-82-4116 Telephone encounter Note* Telephone Encounter - Jewels Levy - 10/17/2024 10:51 AM EDT Pending on [employer] using documistic telephone visit from yesterday. Pending# [id number] [place] [id number] Telephone encounter Note* Telephone Encounter - Jewels Levy - 10/16/2024 3:07 PM EDT Letter and Kishore chart note faxed to [phone] and confirmed [place] [id number] Telephone encounter Note* Telephone Encounter - Shilpi Cook RN - 10/16/2024 2:27 PM EDT PC to Dr. Gregory office. Requesting fax regarding medication recommendation sent to [phone]. Will discuss with Jo Levy. [place] [id number] Telephone encounter Note* Telephone Encounter - Shilpi Cook RN - 10/16/2024 2:13 PM EDT PC to dr Gregory office. Placed on hold and disconnected. Will try again later. [place] [id number] History of Present illness Narrative* Dylon Gupta APRN - PILL PACKER - 10/16/2024 11:00 AM EDT [facility] Telehealth Cardiology Note DATE of SERVICE: 10/16/24 TIME of SERVICE: 12:45 PM Chief Complaint: Chief Complaint Patient presents with Follow-up History of Present Illness: Linda Peralta is a 79 y.o. female known to Dr. Marte with a history for CAD, HPL, DVT, PE, Ritchie's disease, CKD s/p left nephrectomy (donated) and [...] dyspnea with moderate activity. No CAD per [facility]. Weight 156 lbs. Last clinic visit [...] redirect to the Timeline version of the [employer] Smart[employer]. Limited Telehealth exam Constitutional: [x]Alert [x]Oriented [...] or 3b CKD (HCC) CKD followed by aed trainer Dr. Tarango in [place]. Most recent BMP showed SCr 1.61 with CrCl 31. 3. Acute deep vein thrombosis (DVT) of right lower extremity, unspecified vein (HCC) Questionable IVC filter. Currently on Eliquis. Per daughter, LE edema has improved. Post TAVR, willrefer patient to Dr. Gaffney-vascular. We reached out to [facility] clinic for recommendations on bridging. [...] a day for 2 days only. 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 Will reach out to housing liaison Dr. Gregory in [place] ([phone]). for recommendations on IV hydrocortisone prior to [...] patient and provider is done in the [facility] from the [facility] supported by [facility]. [1] Past Medical History: Diagnosis Date Ritchie anemia 2010 [2] Past Surgical History: Procedure [...] 09/03/2024), Disp: , Rfl: documented in this encounterSBlanchard Valley Health SystemFdxilu12-27-8666 Telephone encounter Note* Telephone Encounter - LIDIA Mon CNP - 10/16/2024 8:21 AM EDT Reviewed plan for bridging with [facility] pharmacist. Patient's CrCl is 31. She advised lovenox 40 mg BID for bridging. -patient will take last dose of Eliquis on 10/19/24 -starting on 10/20/24, patient will start lovenox 40 mg BID -she will take her last dose of lovenox morning of 10/22. -No lovenox the evening of 10/22 or morning of 10/23 [facility] CenterRbjywp99-26-7657 Telephone encounter Note* Telephone Encounter - Jewels Levy - 10/15/2024 11:14 AM EDT Lab order faxed to [facility] [phone]/confirmed [facility] [id number] Telephone encounter Note* Telephone Encounter - Jewels Levy - 10/15/2024 9:58 AM EDT I need PB to please finish his chart note so I can submit this auth [facility] CenterCvprjj75-41-9367 Telephone encounter Note* Telephone Encounter - Desirae Martinez RN - 10/14/2024 3:09 PM EDT Spoke with patient, she will have labs drawn tomorrow at [place]. Will have laboratory secretary fax lab orders over [facility] CenterZnfray37-24-0573 NoteReviewed lab work with Butch Gupta APRN, will have patient hold lisinopril until after procedure. Okay to proceed with TAVR, pended case request Spoke with patient verbalized understanding of medication change. Agreed to below procedure date/time. Dx: Severe Aortic stenosis Procedure: TAVR Date/Time: 10/23/24 at 7:30 am Surgeon: Dr. Canas/ Dr. self Location: [facility] Ad[facility] Anesthesia: DEVANG Levy notified to schedule procedure and obtain insurance auth. Patient scheduled for telephone visit for H&P update and to review bridging instructions 10/16. Reviewed TAVR teach instructions while patient was on the phone. TAVR procedure, instructions reviewed with pt Patient scheduled for TAVR on 10/23/24 at 7:30 am Will report to [facility] Same Day Surgery by 5:30 am Can park in the [facility] Parking Deck or use [employer] [place] parking at the [facility] entrance Plan on overnight stay in the hospital Will not be able to drive for 1 week after procedure Will receive moderate sedation through the IV, will be relaxed but awake during the procedure Nothing to eat or drink after midnight Hold all morning medications Will call with any questions/concerns Patient/family verbalized understanding.[facility]08-25-2025 Telephone encounter Note* Telephone Encounter - [...] am Surgeon: Dr. Canas/ Dr. self Location: [facility] Admission: TBA Anesthesia: DEVANG Levy notified to schedule procedure and obtain insurance auth. Patient scheduled for telephone visit for H&P update and to review bridging instructions 10/16. Reviewed TAVR teach instructions while patient was on the phone. TAVR procedure, instructions reviewed with pt Patient scheduled for TAVR on 10/23/24 at 7:30 am Will report to [facility] Same Day Surgery by 5:30 am [facility] or use [employer] [place] parking at the [facility] entrance Plan on overnight stay in the hospital Will not be able to drive for 1 week after procedure Will receive moderate sedation through the IV, will be relaxed but awake during the procedure Nothing to eat or drink after midnight Hold all morning medications Will call with any questions/concerns Patient/family verbalized understanding. [facility] [id number] Telephone encounter Note* Telephone Encounter - Dylon Gupta APRN - PILL PACKER - 10/14/2024 10:46 AM EDT Patient is scheduled for TAVR on 10/23/24. -Reviewed bridging with [facility] pharmacist. Patient current CrCl is [...] morning. (Will review this with Dr. Canas) [facility] [id number] Telephone encounter Note* Telephone Encounter - Jewels Levy - 10/10/2024 4:12 PM EDT Results scanned under Media [facility] [id number] Miscellaneous Notes* Telephone Encounter - Jewels Levy [...] BMP . Please send lab req to [facility]. Will discuss moving forwasr with TAVR with Dr. Canas documented in this encounterSBlanchard Valley Health SystemEuabto76-77-1835 Telephone encounter Note* Telephone Encounter - Jewels Levy - 10/10/2024 1:38 PM EDT I called and spoke to Salima and she is faxing result [place] [id number] Telephone encounter Note* Telephone Encounter - Desirae Martinez RN - 10/10/2024 1:15 PM EDT Reviewed with Butch Joel APRN as patient completed renal US, plan if BMP shows stable function to proceed with TAVR. BMP results from 10/03/24 at [place] show creatinine 1.82 with GRF 28. Will have DISEASE EDUCATION SPECIALIST review and place TAVR case request if appropriate [place] [id number] Telephone encounter Note* Telephone Encounter - Jewels Levy - 10/08/2024 2:11 PM EDT I need PB chart note finished from 09/03/24 to do this auth [place] [id number] Miscellaneous Notes* Telephone Encounter - Jewels Levy [...] BMP . Please send lab req to [facility]. Will discuss moving [facility] with TAVR with Dr. Canas documented in this encounterSBlanchard Valley Health SystemLilyht32-12-8559 Telephone encounter Note* Telephone Encounter - Jewels Levy - 10/07/2024 4:10 PM EDT I called [facility] to send me results [facility] CenterIqdcei79-78-4935 Miscellaneous Notes* Telephone Encounter - Jewels Levy - 10/07/2024 4:10 PM EDT I called [facility] to send me results * Telephone Encounter - Jewels Levy - 10/02/2024 4:38 PM EDT Order faxed to and confirmed * Telephone Encounter - LIDIA Patel CNP - 10/02/2024 4:26 PM EDT Spoke with patient regarding US kidney. Repeat [facility] . Please send lab req to [facility]. Will discuss moving forwasr with TAVR with Dr. Canas documented in this [facility]08-13-2025 Telephone encounter Note* Telephone Encounter - Jewels Levy - 10/02/2024 4:38 PM EDT Order faxed to and confirmed [facility] [id number] Miscellaneous Notes* Telephone Encounter - Jewels Levy - 10/02/2024 4:38 PM EDT Order faxed to * Telephone Encounter - LIDIA Patel CNP - 10/02/2024 4:26 PM EDT Spoke with patient regarding US kidney. Repeat [facility] . Please send lab req to [facility]. Will discuss moving forwasr with TAVR with Dr. Canas documented in this [facility]08-13-2025 Miscellaneous Notes* Telephone Encounter - Jewels Levy - 10/02/2024 4:38 PM EDT Order faxed to and confirmed * Telephone Encounter - LIDIA Patel CNP - 10/02/2024 4:26 PM EDT Spoke with patient regarding US kidney. Repeat BMP . Please send lab req to [facility]. Will discuss moving forwasr with TAVR with Dr. Canas documented in this encounterSBlanchard Valley Health SystemZlxvbt77-90-7444 Telephone encounter Note* Telephone Encounter - LDIIA Patel CNP - 10/02/2024 4:26 PM EDT Spoke with patient regarding US kidney. Repeat BMP . Please send lab req to [facility]. Will discuss moving forwasr with TAVR with Dr. Canas [facility] CenterZaioqd75-25-7484 Telephone encounter Note* Telephone Encounter - LIDIA Patel CNP - 09/26/2024 5:28 PM EDT BMP review. Bump in BUN/creat after 3 days of 40 mg po Lasix. Spoke with daughter. Weight down to 144 #, swelling, improved, dyspnea improved. Will use Lasix 20 mg po for weight gain greater than 3 lbs overnight or 5lbs in a week. Daughter will relay recommendations. [facility] CenterYiidzo78-16-3165 Miscellaneous Notes* Telephone Encounter - LIDIA Patel [...] Daughter will relay recommendations. documented in this [facility]08-07-2025 NoteHNO ID: [id number] Author: SHAKIRA BENOIT RDMS Service: ? Author [...] PATIENT PRESENTS WITH AN IMPLANTABLE OR ATTACHED PHYSICIAN CREDENTIALING SPECIALIST: No RADIOLOGY DEPARTMENT: Ultrasound PERIPHERAL IV DATA: Not applicable SIGNED BY: Shakira Benoit RDMS September 26, 2024 2:20 [facility]08-04-2025 Telephone encounter Note* Telephone Encounter - Sindi Angeles - 09/23/2024 8:25 AM EDT Per appointment desk, patient scheduled with ID on 10-23-24 at 9:00a.m. with Dr. Noble Chowdary. Cecy Angeles September 23, 2024 8:26 AM [facility]08-04-2025 Miscellaneous Notes* Telephone Encounter - Sindi [...] 19, 2024 12:06 PM documented in this encounterPomerene Hospital07-31-2025 History of Present illness Narrative* LIDIA Patel CNP - 09/19/2024 3:00 PM EDT Images from the original note were not included. [facility] - [address] [address] Dept: [phone] Dept Visit type: Established : 1945 Reason [...] Dr. Gaffney- vascular. Will reach out to [facility] for bridging recommendation 3. Acute [...] a PMH for CAD, HPL, DVT, PE, Ritchie's disease, CKD s/p left nephrectomy (donated) and [...] dyspnea with moderate activity. No CAD per [facility]. Weight 156 lbs. Last clinic visit [...] specialty: Independent interpretation of tests: Basim Joel, DISEASE EDUCATION SPECIALIST - PILL PACKER [1] Allergies Allergen Reactions Amlodipine Swelling Ciprofloxacin [...] visit. [3] Past Medical History: Diagnosis Date Ritchie anemia 2010 [4] Past Surgical History: Procedure Laterality Date BLADDER REPAIR HX CYSTECTOMY (HISTORICAL) LAPAROSCOPIC NEPHRECTOMY (HISTORICAL) Left TOTAL ABDOMINAL HYSTERECTOMY [5] Family History Problem Relation Name Age of Onset Heart attack Mother Stroke Father documented in this [facility]07-31-2025 History of Present illness Narrative* LIDIA Patel CNP - 09/19/2024 3:00 PM EDT Images from the original note were not included. [facility] - [address] [address] Dept: [phone] Dept Visit type: Established : 1945 Reason [...] Dr. Gaffney- vascular. Will reach out to [facility] for bridging recommendation 3. Acute [...] dyspnea with moderate activity. No CAD per [facility]. Weight 156 lbs. Last clinic visit [...] visit. [3] Past Medical History: Diagnosis Date Ritchie anemia 2010 [4] Past Surgical History: Procedure Laterality Date BLADDER REPAIR HX CYSTECTOMY (HISTORICAL) LAPAROSCOPIC NEPHRECTOMY (HISTORICAL) Left TOTAL ABDOMINAL HYSTERECTOMY [5] Family History Problem Relation Name Age of Onset Heart attack Mother Stroke Father documented in this [facility]07-31-2025 Miscellaneous Notes* Addendum Note - LIDIA Patel CNP - 09/19/2024 3:00 PM EDTAddended by: BASIM JOEL on: 09/23/2024 01:57 PM Modules accepted: Orders documented in this [facility]07-31-2025 Note* Addendum Note - LIDIA Patel CNP - 09/19/2024 3:00 PM EDTAddended by: BASIM JOEL on: 09/23/2024 01:57 PM Modules accepted: Orders [facility] CenterYljtqi29-13-4942 Note* Addendum Note - LIDIA Patel CNP - 09/19/2024 3:00 PM EDTAddended by: BASIM JOEL on: 09/23/2024 01:57 PM Modules accepted: [id number] Telephone encounter Note* Telephone Encounter - Sindi [...] Cecy Angeles September 19, 2024 12:06 PM [facility]07-31-2025 Instructions* Patient Instructions* Arelis Smith APRN.PILL PACKER - 09/19/2024 11:21 AM EDT Images from [...] Plums Champagne Prunes Cheese Raisins Chicken livers [place] bread Chilies/Spicy foods Saccharin Chocolate Sour cream Colony fruits Soy sauce Coffee Strawberries corned beef Tea Cranberries Tomatoes Krystyna beans Vinegar Grapes Vitamins-buffered with aspartame Caffeine Guava Yogurt Artificial Sweeteners Lemon juice Lentils Artificial Colorants Alternative foods This list offers food alternatives to the foods on the list above. Alcohol or pebbles (only as flavoring) Almonds Apple (small) Blueberries Coffee (acid-free Kava) or highly roasted Extracts, marta, rum, etc Faroese sauternes Imitation sour cream Onions (cooked?) Wildwood juice -- reduced acid Peanuts Pears Processed [...] for Female Pelvic Medicine and Reconstructive Surgery [facility] [place] Recurrent UTI Prevention Program: Takes 6 months [...] laxatives such as miralax. documented in this encounterPomerene Hospital07-31-2025 History of Present illness Narrative* Arelis Smith APRN.CNP - 09/19/2024 11:00 AM EDT Images from the original note were not included. [facility] [place] [facility] [place] UROL [place] EXCHANGE NEW PATIENT UROLOGY VISIT 09/19/2024 10:34 AM PATIENT NAME: Linda Peralta DATE OF : 1945 TODAY'S DATE: 09/19/2024 Referring Provider: Rocio Elizalde [address] [facility] [address] Referring Note Reviewed: Yes Chief Complaint: recurrent [...] treated with steroids despit Adrenal insufficiency (FORM[facility]LY [facility]) 06/12/2023 Age-related osteoporosis with current pathological fracture with routine healing 01/19/2023 Anemia 08/26/2009 ASHD (arteriosclerotic heart disease) 04/25/2009 Asthma (FORM[facility]LY [facility]) Benign neoplasm of colon 04/26/2005 Tubular adenoma Chronic diarrhea 03/15/2010 Chronic sphenoidal sinusitis 09/15/2003 Closed displaced fracture of fifth metatarsal bone of right foot 03/22/2023 Closed fracture of bone of right foot 11/08/2022 Collagenous colitis 03/30/2010 Contact dermatitis and other eczema, due to unspecified cause 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 Cardiac cath normal. 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Ritchie's disease Cystocele, midline 07/23/2007 Diverticulosis of colon (without mention of hemorrhage) DVT of lower extremity (deep venous thrombosis) ([facility]LY [facility]) 03/27/2009 Left leg Esophageal reflux Gallstones 03/06/2016 [...] W/COLLJ SPEC WHEN PFRMD 03/26/2010 Inpatient at [facility] ESOPHAGOGASTRODUODENOSCOPY TRANSORAL DIAGNOSTIC 02/2002 EGD ESOPHAGOGASTRODUODENOSCOPY TRANSORAL [...] , Taking? , Authorizing Provider Rocio Elizalde, DISEASE EDUCATION SPECIALIST.PILL PACKER Medication nitroglycerin sublingual (NITROQUICK) 0.4 mg SL [...] Date Value 06/08/2023 Negative 04/16/2015 Neg Specific Carey, Ur (no units) Date Value 06/08/2023 1.020 [...] LUCACREA, LUCREACL, LWK, LUSUL in the last 31363 hours. Physical Exam Vitals and nursing note [...] to pharmacy. Patient givenprinted information. Arelis Smith APRN.PILL PACKER Consultation requested by Rocio Elizalde [address] [facility] [address] for an opinion regarding Linda Peralta patient and my final recommendations will be communicated back to the requesting physician by way of shared Medical record or letter via US mail. Recording using [employer] software for draft documentation of the visit was discussed with the patient/authorized instruments sales representative; all questions welcomed and answered. Patient/authorized instruments sales representative agreed to proceed documented in this encounterPomerene Hospital07-31-2025 NoteHNO ID: [id number] Author: ARELIS SMITH APRN.TELLY Service: ? 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 (): seen by Dr. Reyes, ongoing nausea, vomiting, diarrhea, treated with steroids despit Adrenal insufficiency ([facility]) 06/12/2023 Age-related osteoporosis with current pathological fracture with routine healing 01/19/2023 Anemia 08/26/2009 ASHD (arteriosclerotic heart disease) 04/25/2009 Asthma ([facility]) Benign neoplasm of colon 04/26/2005 Tubular adenoma Chronic diarrhea 03/15/2010 Chronic sphenoidal sinusitis 09/15/2003 Closed displaced fracture of fifth metatarsal bone of right foot 03/22/2023 Closed fracture of bone of right foot 11/08/2022 Collagenous colitis 03/30/2010 Contact dermatitis and other eczema, due to unspecified cause 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 Cardiac cath normal. 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Ritchie's disease Cystocele, midline 07/23/2007 Diverticulosis of colon (without mention of hemorrhage) DVT of lower extremity (deep venous thrombosis) ([facility]) 03/27/2009 Left leg Esophageal reflux Gallstones 03/06/2016 [...] W/COLLJ SPEC WHEN PFRMD 03/26/2010 Inpatient at [facility] ESOPHAGOGASTRODUODENOSCOPY TRANSORAL DIAGNOSTIC 02/2002 EGD ESOPHAGOGASTRODUODENOSCOPY TRANSORAL DIAGNOSTIC 05/01/2009 EGD ESOPHAGOGASTRODUODENOSCOPY TRANSORAL DIAGNOSTIC 11/18/2009 EGD, EXC CYST/ABERRANT BREAST TISSUE OPEN 1/> LESION 1960 benign IVC FILTER PERCUTANEOUS 03/31/2009 LAPS SURG CHOLECYSTECTOMY W/CHOLANGIOGRAPHY 03/30/2016 LEFT HEART CATH,PERCUTANEOUS 04/27/2009 Cardiac cath, L (more content not included)...[facility] 09-19-2024 Telephone encounter Note* Telephone Encounter - Ama Diaz RN - 09/19/2024 10:42 AM EDT Pt has Urology appointment set up. Ama Diaz RN [facility]07-31-2025 Miscellaneous Notes* Telephone Encounter - Ama [...] Pt. Ama Diaz RN documented in this encounterPomerene Hospital07-24-2025 Telephone encounter Note * Telephone Encounter [...] call and advise Pt. Ama Diaz RN [facility]07-15-2025 History of Present illness Narrative* Baldo De La Cruz MD - 09/03/2024 4:00 PM EDT Images from the original note were not included. [facility]: Cardiothoracic Surgery Multidisciplinary Heart Valve Clinic Date: 09/03/24 Patient:Linda Peralta 1945 79 y.o. female [id number] Subjective: HPI: Linda Peralta [address] Marte is being evaluated for aortic valve stenosis. Echocardiogram completed on 07/03/24 showed moderate to severe aortic valve stenosis with mean bcbjjucy19 mm Hg. Per note, patient with past medical history significant for STEMI 2009, HLD, DVT, PE, Ritchie's Disease, CKD, s/p left nephrectomy and right [...] were no vitals taken for this visit. @[id number]@ Physical Exam Constitutional: Appearance: Normal appearance. HENT: [...] echocardiography,and other diagnostic images. documented in this [facility]07-15-2025 History of Present illness Narrative* Memo Canas MD - 09/03/2024 3:30 PM EDT Images from the original note were not included. [facility] - [address] [address] Dept: [phone] Dept Visit type: New : 1945 Reason [...] proceeding with TAVR. We will contact her housing liaison for recommendations about steroid dosingaround the time [...] 10/23/2024 Performed by Memo Canas MD at [facility] OR CYSTECTOMY (HISTORICAL) LAPAROSCOPIC NEPHRECTOMY (HISTORICAL) Left TOTAL ABDOMINAL HYSTERECTOMY [5] Family History Problem Relation Name Age of Onset Heart attack Mother Stroke Father documented in this [facility]07-10-2025 NoteHNO ID: [id number] Author: AMOS FLOYD MD Service: ? Author Type: Physician Type: Progress Notes Filed: 08/29/2024 11:26 Note Text: This note was created using [employer] Franchiseriter. Subjective Linda Peralta is a 79 year old female here with daughter. She was doing better. Blood pressure was elevating now. Her housing liaison, Dr. Gregory, did not need to call in a medication to raise her blood pressure. Edema was improving. Dysuria resolved. She was scheduled to see cardiac surgeons in [facility] next week for possible TAVR. Review [...] I35.0 - To see cardiac surgery in [facility]. 6. Thyroid nodule greater than or equal to 1 cm in diameter incidentally noted on imaging study, right side. - ICD9: 241.0, ICD10: E04.1 - We reviewed this. Dr. Gregory palpated her thyroid and was aware. He recommended monitoring only. Amos Floyd, [facility]07-10-2025 History of Present illness Narrative* Amos Floyd MD - 08/29/2024 10:54 AM EDT This note was created using [employer] Franchiseriter. Subjective Linda Peralta is a 79 year old female here with daughter. She was doing better. Blood pressure was elevating now. Her housing liaison, Dr. Gregory, did not need to call in a medication to raise her blood pressure. Edema was improving. Dysuria resolved. She was scheduled to see cardiac surgeons in [facility] next week for possible TAVR. Review [...] I35.0 - To see cardiac surgery in [facility]. 6. Thyroid nodule greater than or equal to 1 cm in diameter incidentally noted on imaging study, right side. - ICD9: 241.0, ICD10: E04.1 - We reviewed this. Dr. Gregory palpated her thyroid and was aware. He recommended monitoring only. Amos Flody MD documented in this encounterPomerene Hospital07-03-2025 NoteHNO ID: [id number] Author: ANNEMARIE READ RN Service: ? Author [...] Annemarie Read RN August 22, 2024 12:43 [facility]07-03-2025 History of Present illness Narrative* Annemarie [...] alreadyhas an appointment scheduled EDUCATION: N/A Annemarie Raed RN August 22, 2024 12:43 PM documented in this encounterPomerene Hospital07-03-2025 NotePatient Outreach ([facility]) LINDA PERALTA ([id number]) 1945 F Date Time Provider Department 08/22[facility] your visit today, we recorded the [...] 03/10/2016 02/27/2017 Atopic neur (more content not included)...[facility]06-30-[facility]25 Telephone encounter Note* Telephone Encounter - Ama Diaz RN - 08/19/2024 6:30 PM EDT Pt's daughter called and is notified of providers message and instructions. She voices understanding. Ama Diaz RN [facility]06-30-2025 Miscellaneous Notes* Telephone Encounter - Ama [...] order another antibiotic? Please advise daughter Souleymane [phone]. documented in this encounterPomerene Hospital06-30-2025 Telephone encounter Note * Telephone Encounter [...] after antibiotic is done. Amos Floyd MD [facility]06-30-2025 Telephone encounter Note* Telephone Encounter - [...] order another antibiotic? Please advise daughter Souleymane [phone]. [facility]06-26-2025 NoteHNO ID: [id number] Author: ANNEMARIE READ RN Service: ? Author Type: Registered Nurse Type: Progress Notes Filed: 08/15/2024 10:28 Note Text: Transition Care Management (TCM) Initial Outreach PCP Update / Actionable Items HRTIC TCM Home Visit Referral Source of Stratification: TCM [facility] Hospital Admission Status: Discharged Readmission Risk Score: N/A Patient's zip code: [address] Is zip code within program service area: No Patient meets program referral criteria: No Patient does not qualify for High Risk TCM Home Visit program due to: Readmission Risk Score does not meet criteria Disposition: Patient does not qualify for HRTIC, will provide TCM outreach follow-up for 30-days Patient Source: Jyu-sh-Jiccsfh (OON) Discharge Outreach Summary: Called and spoke [...] concerns at this time. Patient discharged from [facility] Discharge date: 08/09/24 Admitted for: Acute cystitis AND DVT Readmission Risk: N/A Value-Based Contract: Pattie STORM Contact: Contact made with patient: Yes Hi, my name is Annemarie Read RN and I am calling from the [facility] on behalf of your Primary Care [...] I will send your request to a hand riveter who will contact and assist you with [...] Annemarie Read RN August 15, 2024 10:26 [facility]06-26-2025 History of Present illness Narrative* Annemarie Read RN - 08/15/2024 10:14 AM EDT Transition Care Management (TCM) Initial Outreach PCP Update / Actionable Items HRTIC TCM Home Visit Referral Source of Stratification: TCM [facility] Hospital Admission Status: Discharged Readmission Risk Score: N/A Patient's zip code: [address] Is zip code within program service area: No Patient meets program referral criteria: No Patient does not qualify for High Risk TCM Home Visit program due to: Readmission Risk Score does not meet criteria Disposition: Patient does not qualify for HRTIC, will provide TCM outreach follow-up for 30-days Patient Source: Ovy-kt-Iycejlp (OON) Discharge Outreach Summary: Called and spoke [...] concerns at this time. Patient discharged from [facility] Discharge date: 08/09/24 Admitted for: Acute cystitis & DVT Readmission Risk: N/A Value-Based Contract: [employer] [place] Contact: Contact made with patient: Yes Hi, my name is Annemarie Read RN and I am calling from the [facility] on behalf of your Primary Care [...] I will send your request to a hand riveter who will contact and assist you with [...] 15, 2024 10:26 AM documented in this encounterPomerene Hospital06-26-2025 NotePatient Outreach ([facility]) LINDA PERALTA ([id number]) 1945 F Date Time Provider Department 08/15/24 ANNEMARIE READ During your visit today, we recorded the following information about you: Annemarie Read RN 08/15/2024 10:28 AM Signed Transition Care Management (TCM) Initial Outreach PCP Update / Actionable Items HRTIC TCM Home Visit Referral Source of Stratification: [facility] Admission Status: Discharged Readmission Risk Score: N/A Patient's zip code: [address] Is zip code within program service area: No Patient meets program referral criteria: No Patient does not qualify for High Risk TCM Home Visit program due to: Readmission Risk Score does not meet criteria Disposition: Patient does not qualify for HRTIC, will provide TCM outreach follow-up for 30-days Patient Source: Qij-lx-Fgamkxq (OON) Discharge Outreach Summary: Called and spoke [...] concerns at this time. Patient discharged from [facility] Discharge date: 08/09/24 Admitted for: Acute cystitis AND DVT Readmission Risk: N/A Value-Based Contract: [employer] STORM Contact: Contact made with patient: Yes Hi, my name is Annemarie Read RN and I am calling from the [facility] on behalf of your Primary Care [...] I will send your request to a hand riveter who will contact and assist you with [...] 5 days. - ipra (more content not included)...[facility]06-25-2025 Instructions* Patient Instructions* Amos Floyd MD - 08/14/2024 12:13 PM EDT HYDRATE WELL. MESSAGE BLOOD PRESSURE READINGS IN 1-2 DAYS. DO NOT TAKE LISINOPRIL OR AMLODIPINE (HIGH BLOOD PRESSURE MEDICATIONS) TRAMADOL NEEDED FOR PAIN NOT BETTER WITH TYLENOL. documented in this encounterPomerene Hospital06-25-2025 NoteHNO ID: [id number] Author: AMOS FLOYD MD Service: ? Author Type: Physician Type: Progress Notes Filed: 08/15/2024 07:19 Note Text: This note was created using Stealzter. Subjective Patient presents with: Hospital F/U Linda Peralta is a 79 year old female here with her daughter. She had a heart catheterization 08/05/24 showing minimal CAD and severe . She was being referred for TAVR to a specialist in [facility]. She developed weakness 08/07/24 and was found to be bradycardic and hypotensive. She was admitted with concerns for UTI, urosepsis, non STEMI, and Ritchie's. She was treated with IV fluids, antibiotic for Klebsiella aerogenes UTI, and IV hydrocortisone. She was noted to have edema and found to have acute DVT, in the setting of recent holding of termite helper warfarin for the heart cath. She was [...] recommended due to hypot (more content not included)...[facility]06-25-2025 History of Present illness Narrative* Amos Floyd MD - 08/14/2024 11:39 AM EDT This note was created using NoteWriter. Subjective Patient presents with: Hospital F/U Linda Peralta is a 79 year old female here with her daughter. She had a heart catheterization 08/05/24 showing minimal CAD and severe . She was being referred for TAVR to a specialist in [facility]. She developed weakness 08/07/24 and was found to be bradycardic and hypotensive. She was admitted with concerns for UTI, urosepsis, non STEMI, and Ritchie's. She was treated with IV fluids, antibiotic for Klebsiella aerogenes UTI, and IV hydrocortisone. She was noted to have edema and found to have acute DVT, in the setting of recent holding of correction warfarin for the heart cath. She was [...] in diameter incidentally noted on imaging study, [facility]. Social History Tobacco Use Smoking status: [...] hypotension - ICD9: 458.8, ICD10: I95.89 - Ritchie's confounded by amlodipine not clearly accounted for. - Patient instructed to stop amlodipine and continue to stay off lisinopril. 3. Adrenal insufficiency (HCC) - ICD9: 255.41, ICD10: E27.40 - Continue steroid taper for now. - Daughter will monitor BP and message in 1-2 days if still low. 4. Nonrheumatic aortic valve stenosis - ICD9: 424.1, ICD10: I35.0 [facility] 5. Acute cystitis without hematuria - ICD9: 595.0, ICD10: N30.00 Recheck. - UA DIP, URINE (POC) - BACTERIAL CULTURE, URINE Amos Floyd MD documented in this encounterPomerene Hospital06-20-2025 Discharge summary [facility] Medical Records Department [address] [place] [address] Discharge Summary 08/09/24 1437 MR#: [id number] Acct: [id number] Name: LINDA PERATLA Rep #:[id number] : 1945 79 From: Jairo Mitchell DO PCP: Dr. 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 Jairo Mitchell DO; Dr. Amos Floyd MD~ Signed [facility]06-20-2025 [facility]06-19-2025 Progress note Author Ted Toro [facility] Note Date/Time August 08, 2024 10:4 6am [facility] Medical Records Department [address] [place] [address] Progress Note - Hospitalist 08/08/24 1028 MR#: [id number] Acct: [id number] Name: LINDA PERALTA Rep #:[id number] : 1945 79 From: Ted charles MD PCP: Dr. Amos Floyd MD Status:A DM IN Location: [place] [address] Subjective Subjective doing well, feels better than [...] 71.7 H, Lymph % (Auto) 15.0 L, Hubbard % (Auto) 9.7, Eos % (Auto) 1.1, [...] Urine ClarityClear, Urine pH 6.0, Ur Specific Carey 1.015, Urine Protein 30 H, Urine Glucose [...] consult for management. Colonic diverticulosis. Reading Location: [place] [address] Physical Exam Narrative General: Alert, Oriented x3, [...] UTI without sepsis in the setting of Ritchie's disease ? She did not have sepsis [...] Therapeutic Lovenox Charges/Coding Visit Charges Inpatient E&M: 62376 Subs Hosp L2 08/08/24 1046 <Electronically signed by Ted Toro MD> Cosigner Signature (if applicable): CC: ~ Signed [facility] Work Phone: 1(606) 587-795406-19-2025 Progress note [facility] Medical Records Department [address] [place] [address] Progress Note - Hospitalist 08/08/24 1028 MR#: [id number] Acct: [id number] Name: LINDA PERALTA Rep #:[id number] : 1945 79 From: Ted charles MD PCP: Dr. Amos Floyd MD Status:A DM IN Location: [place] [address] Subjective Subjective doing well, feels better than [...] 71.7 H, Lymph % (Auto) 15.0 L, Hubbard % (Auto) 9.7, Eos % (Auto) 1.1, [...] Urine ClarityClear, Urine pH 6.0, Ur Specific Carey 1.015, Urine Protein 30 H, Urine Glucose [...] consult for management. Colonic diverticulosis. Reading Location: [place] [address] Physical Exam Narrative General: Alert, Oriented x3, [...] UTI without sepsis in the setting of Ritchie's disease ? She did not have sepsis [...] Therapeutic Lovenox Charges/Coding Visit Charges Inpatient E&M: 30716 Subs Hosp L2 08/08/24 1046 Cosigner Signature (if applicable): CC: ~ Signed [facility]06-19-2025 History and physical note Author Nixon Brizuela [facility] Note Date/Time August 08, 2024 6:55 am [facility] Medical Records Department [address] [place] [address] H&P Exam - Hospitalist 08/07/241930 MR#: [id number] Acct: [id number] Name: LINDA PERALTA Rep #:[id number] : 1945 79 From: Nixon Sanchez DO [...] LVEF ~60% and mild luminal irregularities with tpdudjbz-tr-tenbko plus grade II mitral valve insufficiency who presents to [facility] ER complaining of hypotension and bradycardia. [...] 5 days in preparation for her recent [facility] with patient recently just having 1dose [...] is expected to extend beyond 2 midnights. [facility] Medical History MVP (mitral valve prolapse) Aortic [...] denosumab 60 mg/mL subcutaneous 60 mg subcut [id number] #1 mL 11/24/22 Unknown Rx syringe (Prolia) [...] Std Deviation 52.4 H, RDW Coeff of Slvaa 15.6 H, Plt Count 193, MPV11.9, Immature Gran % (Auto) 1.600 H, Neut % (Auto) 71.7 H, Lymph % (Auto) 15.0 L, Hubbard % (Auto) 9.7, Eos % (Auto) 1.1, [...] Urine ClarityClear, Urine pH 6.0, Ur Specific Carey 1.015, Urine Protein 30 H, Urine Glucose (UA) Normal, Urine Ketones Negative, Urine Occult Blood 150 H, Urine Nitrite Positive H, Urine Bilirubin Negative, Urine Urobilinogen Normal, Ur Leukocyte Esterase 25 H, Urine RBC 0-5 SEEN, Urine WBC 5-10 SEEN, Ur Squamous Epith Cells 0 SEEN, Urine Bacteria 3+, Urine Mucus 0 SEEN Imaging [facility] Imaging Services [address] [place] [address] Abdomen/Pelvis without Cont MR#: [id number] Acct: [id number] Name: LINDA PERALTA Rep #: [id number] : 1945 F 79 From: Omar Carrillo MD PCP: Dr. Amos Floyd MD Status: ADM IN Study: Abdomen/Pelvis without Cont Date of Exam: 08/07/24 Exam# [id number] Ordering Dr: Nixon Silverio DO PROCEDURE: ABDOMEN/PELVIS [...] consult for management. Colonic diverticulosis. Reading Location: [id number] CC: Dr. Nixon Silverio DO; Dr. Amos Floyd MD ~ Vocational Aide: Signed Assessment & Plan Assessment/Plan (1) Acute cystitis without hematuria: (2) Sepsis: QUALIFIERS: Sepsis acute organ dysfunction status: without acute organ dysfunction Sepsis type: sepsis due to unspecified organism Qualified Code(s): A41.9 - Sepsis, unspecified organism (3) Leukocytosis: QUALIFIERS: Leukocytosis type: bandemia Qualified Code(s): D72.825 - Bandemia (4) Ritchie's disease: (5) Dehydration: (6) Bradycardia: (7) Elevated [...] nausea and vomiting. Give acetaminophen prn for zjak-je-oloavecn (level 1- 5/10) pain or fever. Give [...] LVEF ~60% and mild luminal irregularities with rjcgxbwh-fv-jhbfit plus grade II mitral valve insufficiency with MVP - We will consult [facility] to see patient thisadmission for [...] responsive hypotension Charges/Coding Visit Charges Inpatient E&M: 17711 Init Hosp L3 08/08/24 0655 <Electronically signed by Nixon Silverio DO> Cosigner Signature (if applicable): CC: Dr. Nixon Silverio DO; Dr. Amos Floyd MD~ Signed [facility] Work Phone: 1(648) 321-217606-19-2025 History and physical note [facility] Medical Records Department [address] [place] [address] H&P Exam - Hospitalist 08/07/241930 MR#: [id number] Acct: [id number] Name: LINDA PERALTA Rep #:[id number] : 1945 79 From: Nixon Sanchez DO [...] of PE and recurrent DVT's; on warfarin, Ritchie's diseasewith orthostatic hypotension and frequent falls; on [...] LVEF ~60% and mild luminal irregularities with nbpraarl-am-ikdzte plus grade II mitral valve insufficiency who presents to [facility] ER complaining of hypotension and bradycardia. [...] that is expected to extend beyond 2midnights. [facility] Medical History MVP (mitral valve prolapse) Aortic stenosis Hypokalemia Elevated serum creatinine Acute prerenal azotemia History of kidney cancer Chronic kidney disease Hypercalcemia Frequent falls Closed head injury (03/20/20) Hypoglycemia (03/20/20) Acute electrocardiogram changes Atopic dermatitis Osteopenia determined by x-ray History of pulmonary embolism shelter (current) use of anticoagulants Orthostatic hypotension Chronic kidney disease, stage 3 Ritchie disease Essential (primary) hypertension Hyperlipidemia Recurrent deep [...] denosumab 60 mg/mL subcutaneous 60 mg subcut [id number] #1 mL 11/24/22 Unknown Rx syringe (Prolia) [...] Other History of DVT (deep vein thrombosis) 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 Surgical History History [...] safe at home: Yes additional social history: [place]- Retired patient is retired ROS ROS Narrative [...] 71.7 H, Lymph % (Auto) 15.0 L, Hubbard % (Auto) 9.7, Eos % (Auto) 1.1, [...] Urine ClarityClear, Urine pH 6.0, Ur Specific Carey 1.015, Urine Protein 30 H, Urine Glucose (UA) Normal, Urine Ketones Negative, Urine Occult Blood 150 H, Urine Nitrite Positive H, Urine Bilirubin Negative, Urine Urobilinogen Normal, Ur Leukocyte Esterase 25 H, Urine RBC 0-5 SEEN, Urine WBC 5-10 SEEN, Ur Squamous Epith Cells 0 SEEN, Urine Bacteria 3+, Urine Mucus 0 SEEN Imaging [facility] Imaging Services [address] [place] [address] Abdomen/Pelvis without Cont MR#: [id number] Acct: [id number] Name: LINDA PERALTA Rep #: [id number] : 1945 F 79 From: Omar Carrillo MD PCP: Dr. Amos Floyd MD Status: ADM IN Study: Abdomen/Pelvis without Cont Date of Exam: 08/07/24 Exam# [id number] Ordering Dr: Nixon Silverio DO PROCEDURE: ABDOMEN/PELVIS [...] consult for management. Colonic diverticulosis. Reading Location: [place] [address] CC: Dr. Nixon Silverio DO; Dr. Amos Floyd MD ~ Vocational Aide: Signed Assessment & Plan Assessment/Plan (1) Acute cystitis without hematuria: (2) Sepsis: QUALIFIERS: Sepsis acute organ dysfunction status: without acute organ dysfunction Sepsis type: sepsis due to unspecified organism Qualified Code(s): A41.9 - Sepsis, unspecified organism (3) Leukocytosis: QUALIFIERS: Leukocytosis type: bandemia Qualified Code(s): D72.825 - Bandemia (4) Ritchie's disease: (5) Dehydration: (6) Bradycardia: (7) Elevated [...] for Sepsis in the setting of known Ritchie's disease with suspected superimposed Adrenal Insufficiency with orthostatic hypotension and frequent falls; on hydrocortisone 20 mg PO daily - Admit to ICU for treatment under the Sepsis protocol. Continue IV ceftriaxone begun in the ER and await culture and sensitivity data. Serialize lactate with level yet to be obtained. Give promethazine prn nausea and vomiting. Give acetaminophen prnfor cvjt-eu-fmclpnxk (level 1-5/10) pain or fever. Give morphine [...] LVEF ~60% and mild luminal irregularities with ykdgmjbh-nu-ptrgdx plus grade II mitral valve insufficiency with MVP - We will consult [facility] to see patient thisadmission for [...] responsive hypotension Charges/Coding Visit Charges Inpatient E&M: 55960 Init Hosp L3 08/08/24 0621 Cosigner Signature (if applicable): CC: Dr. Nixon Silverio DO; Dr. Amos Floyd MD~ Signed [facility]06-18-2025 Radiology Diagnostic study note [facility] Imaging Services [address] [place], [place] [id number] Abdomen/Pelvis without Cont MR#: [id number] Acct: [id number] Name: LINDA PERALTA Rep #: [id number] : 1945 F 79 From: Oleg Carrillo MD PCP: Dr. Amos Floyd MD Status: A DM IN Study:Abdomen/Pelvis without Cont Date of Exa m: 08/07/24 Exam# [id number] Ordering Dr: Nixon Villareal DO PROCEDURE: ABDOMEN/PELVIS [...] consult for management. Colonic diverticulosis. Reading Location: [id number] CC: Dr. Nixon Silverio DO; Dr. Amos Floyd MD ~ Vocational Aide: Signed [facility]06-18-2025 Discharge summary Author Obinna Uday [facility] Note Date/Time August 07, 2024 7:39 pm [facility] [address] [place] [address] Emergency Department Summary 08/07/24 MR#: [id number] Acct: [id number] Name: LINDA PERALTA Rep #:[id number] : 1945 79 From: Obinna Frye MD [...] Yes (Cardiac catheterization earlier this week) [facility] Medical History MVP (mitral valve prolapse) Aortic stenosis Hypokalemia Elevated serum creatinine Acute prerenal azotemia History of kidney cancer Chronic kidney disease Hypercalcemia Frequent falls Closed head injury (03/20/20) Hypoglycemia (03/20/20) Acute electrocardiogram changes Atopic dermatitis Osteopenia determined by x-ray History of pulmonary embolism 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 GA interval is 130 ms perQRS duration 80 ms. QT duration. 14 ms. [place] is normal. Patient has evidenceof atrial enlargement. There is also evidence of LVH. There is no acute ischemic changes.) Management Discussion w/another healthcare provider: Hospitalist and Deputy Director Of Nursing (Her healthcare risk control consultant was contacted since he sent her in.) [...] independent rotation laboratory results), Discussing w/Patient &/or Family/Bass Singer, Discussing w/Consultants (Dr. Fermin and ), Arranging [...] Prolia 60 mg/mL syringe 60 mg subcut [id number] Qty: 1 1RF methenamine hippurate 1 gram [...] MD [Primary Care Provider] - Print Language: Finnish What to do if you have Problems For any increased pain, shortness of breath, bleeding, nausea or vomiting, chestpain, or any unexpected problems, contact your Primary Care Provider. Call [facility] ([phone]) or report to the closest Emergency Room. Call 911 if necessary. 08/07/241938 <Electronically signed by Obinna Frye MD> Cosigner Signature (if applicable): CC: Dr. Amos Floyd MD ~ Signed [facility] Work Phone: 1(656) 889-514806-18-2025 Discharge summary [facility] Medical Records Department [address] [place] [address] Emergency Department Summary 08/07/24 MR#: [id number] Acct: [id number] Name: LINDA PERALTA Rep #:[id number] : 1945 79 From: Obinna Frye MD [...] Yes (Cardiac catheterization earlier this week) [facility] Medical History MVP (mitral valve prolapse) Aortic stenosis Hypokalemia Elevated serum creatinine Acute prerenal azotemia History of kidney cancer Chronic kidney disease Hypercalcemia Frequent falls Closed head injury (03/20/20) Hypoglycemia (03/20/20) Acute electrocardiogram changes Atopic dermatitis Osteopenia determined by x-ray History of pulmonary embolism 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 Orthostatic hypotension Chronic kidney disease, stage 3 Ritchie disease Essential (primary) hypertension Hyperlipidemia Recurrent deep [...] denosumab 60 mg/mL subcutaneous 60 mg subcut [id number] #1 mL 11/24/22 Unknown Rx syringe (Prolia) [...] Other History of DVT (deep vein thrombosis) 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 GA interval is 130 ms perQRS duration 80 ms. QT duration. 14 ms. [place] is normal. Patient has evidenceof atrial enlargement. There is also evidence of LVH. There is no acute ischemic changes.) Management Discussion w/another healthcare provider: Hospitalist and Deputy Director Of Nursing (Her healthcare risk control consultant was contacted since he sent her in.) [...] independent rotation laboratory results), Discussing w/Patient &/or Family/Bass Singer, Discussing w/Consultants (Dr. 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 Call [facility] ([phone]) or report tothe closest Emergency Room. Call 911 if necessary. 08/07/241938 Cosigner Signature (if applicable): CC: Dr. Amos Floyd MD ~ Signed [facility]06-04-2025 NoteHNO ID: [id number] Author: AMOS FLOYD MD Service: ? Author Type: Physician Type: Progress Notes Filed: 07/24/2024 12:45 Note Text: This note was created using [employer]. Subjective Linda Peralta is a 79 year old female. Recording using [employer] software for draft documentation of the visit was discussed with the patient/authorized instruments sales representative; all questions welcomed and answered. Patient/authorized instruments sales representative agreed to proceed Heart Murmur: - [...] on it years ago (more content not included)...[facility]06-04-2025 History of Present illness Narrative* Amos Floyd MD - 07/24/2024 11:28 AM EDT This note was created using [employer] Fr[employer]. Subjective Linda Peralta is a 79 year old female. Recording using [employer] software for draft documentation of the visit was discussed with the patient/authorized instruments sales representative; all questions welcomed and answered. Patient/authorized instruments sales representative agreed to proceed Heart Murmur: - [...] in diameter incidentally noted on imaging study, [facility]. Social History Tobacco Use Smoking status: [...] ICD10: E27.40 Stable, and monitored by her housing liaison. - HYDROCORTISONE 10 MG TABLET 8. Encounter for immunization - ICD9: V03.89, ICD10: Z23 - PFIZER[employer]ION[employer]brick&mobile COVID-19 VACCINE AGE 12+ YR (COMIRNATY) Amos Floyd MD [facility]06-[facility] Radiology Diagnostic study note [facility] Imaging Services [address] [place] [address] Chest PA and Lateral MR#: [id number] Acct: [id number] Name: LINDA PERALTA Rep #: [id number] : 1945 F 79 From: Bobbi Parada MD PCP: Dr. Amos Floyd MD Status: P RE [facility] Study:Chest PA and Lateral Date of Exam: 07/23/24 Exam# [id number] Ordering Dr: Heaven Bolton BOOTH OPERATOR BOOTH OPERATOR-C PROCEDURE: CHEST PA AND LATERAL 07/23/2024 [...] pulmonary vascular congestion. Mild cardiomegaly. Reading Location: [facility] CC: BOOTH OPERATOR-C Heaven Bolton; Dr. 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 inactive July 23, [...] 212024 8:16pm Sepsis resolved August 07 8:16pm Ritchie's disease inactive August 072024 8:16pm Aortic stenosis inactive July 8:16pm Aortic stenosis, severe inactive J 2024 8:16pm Chronic kidney disease, stage 3 inac tive August 07, 2024 8:16pm shelter (current) use of anticoagulants inactive August 07, 2024 8:16pm MVP (mitral valve prolapse) inactive August 07, 2024 8:16pm Overweight (BMI 25.0-29.9) inactive August 07, 2024 8:16pm [facility] Work Phone: 1(667) 151-623106-03-2025 Evaluation note* Diagnosis Onset Date Resolution Status Admit Date Aortic stenosis acute July 23, 2024 8:33am Essential (primary) hypertension chronic July 23, 2024 8:33am Hyperlipidemia chronic July 23, 2024 8:33am History of non-ST elevation myocardial infarction (NSTEMI) April, resolved July 23 8:33am Chronic kidney disease, stage 3 inactive July 23, 2024 8:33am 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 Service: ? Author Type: LICENSED NURSE Type: Progress Notes Filed: 07/10/2024 09:03 Note Text: Patient presents for Prolia injection. Denies any problems at this time. Patient instructed on any SE of medication, verbalized understanding and agreed to proceed with treatment. Tolerated injection well. Desirae Arzola [facility]04-30-2025 NoteHNO ID: [id number] Author: MARK LEE CPhT Service: ? Author Type: Felt Coverer Type: Progress Notes Filed: 06/19/2024 15:00 Note [...] to be addressed Mark Lee CPhT Value [facility]04-30-[facility] History of Present illness Narrative* Mark [...] concerns to be addressed Mark Lee CPhT [facility] Pharmacy Team documented in this encounterPome[facility]04-30-2025 NotePatient Outreach (PHPOHE) LINDA PERALTA ([id number]) 1945 F Date Time Provider Department 06/19/24 [...] concerns to be addressed Mark Lee CPhT [facility] Pharmacy Team Allergies As of Date: 06/19/2024 [...] Status:Closed by SIMON LEE (more content not included)...[facility]04-28-2025 NoteHNO ID: [id number] Author: MARK LEE CPhT Service: ? Author Type: Felt Coverer Type: Progress Notes Filed: 06/17/2024 10:08 Note Text: Patient is identified through a medication adherence outreach initiative based on pharmacy claims data from: [facility] Medication Adherence Category: Statins First Review [...] Mark Lee CPhT Value Based [facility]04-28-2025 NotePatient Outreach (PHPOHE) LINDA PERALTA ([id number]) 1945 F Date Time Provider Department 06/17/24 AMOS FLOYD PHPOHE During your visit today, we recorded the following information about you: Mark Lee CPhT 06/17/2024 10:08 AM Signed Patient is identified through a medication adherence outreach initiative based on pharmacy claims data from: [facility] Medication Adherence Category: Statins First Review Attribution Status: Correct Attribution Medication(s) Simvastatin 20 mg Medication Status per portal/Epic Reconcile Dispense: Not filled - Outreach patient Medication Status per Profile Review: No issues per profile review Patient appropriate for outreach? Yes Patient identified by name and Outreach to patient: Left Voicemail/message for return call What was primary intervention? No intervention Mark Lee CPhT [facility] Pharmacy Team Allergies As of Date: 06/17/2024 [...] [I25.10] 04/25/2009 DVT (deep venous thrombosis) ([facility]) [I82.409] 03/23/2012 01/23/2024 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 [...] in*02/22/2024 Encounter Status:Closed by MARK LEE on 06/17/24[facility] 05-14-2024 NoteHNO ID: [id number] Author: NAKIA BURK CPhT Service: ? Author Type: Felt Coverer Type: Progress Notes Filed: 05/14/2024 14:05 Note [...] Nakia Burk CPhT [facility]03-25-2025 History of Present illness Narrative* Nakia [...] Based Care Pharmacy Team documented in this encounterPomerene Hospital03-25-2025 NotePatient Outreach (PHPOHE) LINDA PERALTA ([id number]) 1945 F Date Time Provider Department 05/14/24 AMOS FLOYD PHPOHE During your visit today, we recorded the following information about you: Nakia Burk CPhT 05/14/2024 2:05 PM Signed Patient is identified through a medication adherence outreach initiative based on pharmacy claims data from: [facility] Medication Adherence Category: Hypertension First Review Attribution [...] concerns to be addressed Nakia Burk CPhT [facility] Care Pharmacy Team Allergies As of Date: [...] [I25.10] 04/25/2009 DVT (deep venous thrombosis) ([facility]) [I82.409] 03/23/2012 01/23/2024 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 [...] in*02/22/2024 Encounter Status:Closed by NAKIA BURK on 05/14/24[facility] 04-29-[facility] Evaluation note* Diagnosis Onset Date Resolution Status Admit Date Aortic stenosis acute April 10:53am shelter (current) use of anticoagulants acute April 29, 2024 10:53am MVP (mitral valve prolapse) acute April 29, 2024 10:53am Chronic kidney disease, stage 3 manager research development mg April 29, 2024 10:53am Essential (primary) hypertension chronic April 29, 2024 10:53am Hyperlipidemia chronic April 10:53am History of non-ST elevation myocardial infarction (NSTEMI) April, resolved M arch 2024 10:53am [facility] Work Phone: 1(734) 868-903803-10-2025 Evaluation note* Diagnosis Onset Date Resolution Status Admit Date Aortic stenosis acute April 10:53am 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 acute April 29, 2024 10:53am MVP (mitral valve prolapse) acute April 29, 2024 10:53am Chronic kidney disease, stage 3 manager research development mg April 29, 2024 10:53am Essential (primary) hypertension chronic April 29, 2024 10:53am Hyperlipidemia chronic April 10:53am History of non-ST elevation myocardial infarction (NSTEMI) April, resolved M arch 2024 10:53am Severe aortic stenosis acute 2024 8:33am [facility] Work Phone: 1(167) 702-888603-10-2025 Evaluation note* Diagnosis Onset Date Resolution Status Admit Date Aortic stenosis acute April 10:53am shelter (current) use of anticoagulants acute April 29, 2024 10:53am MVP (mitral valve prolapse) acute April 29, 2024 10:53am Chronic kidney disease, stage 3 manager research development mg April 29, 2024 10:53am Essential (primary) hypertension chronic April 29, 2024 10:53am Hyperlipidemia chronic April 10:53am History of non-ST elevation myocardial infarction (NSTEMI) April, resolved M 2024 10:53am Aortic stenosis acute July 23, 2024 8:33am shelter (current) use of anticoagulants acute July 23, 2024 8 :33am MVP (mitral valve prolapse) acute July 23, 2024 8:33am Chronic kidney disease, stage 3 manager research development mg July 23, 2024 8:33am Essential (primary) hypertension chronic July 23, 2024 8 :33am Hyperlipidemia chronic July 23, 2024 8:33am History of non-ST elevation myocardial infarction (NSTEMI) April, resolved J [facility] 2024 8:33am [facility] Work Phone: 1(843) 127-307003-10-2025 Evaluation note* Diagnosis Onset Date Resolution Status Admit Date Aortic stenosis acute April 10:53am shelter (current) use of anticoagulants acute April 29, 2024 10:53am MVP (mitral valve prolapse) acute April 29, 2024 10:53am Chronic kidney disease, stage 3 manager research development mg April 29, 2024 10:53am Essential (primary) hypertension chronic April 29, 2024 10:53am Hyperlipidemia chronic April 10:53am History of non-ST elevation myocardial infarction (NSTEMI) April, resolved M arch 2024 10:53am Aortic stenosis acute July 23, 2024 8:33am shelter (current) use of anticoagulants acute July 23, 2024 8 :33am MVP (mitral valve prolapse) acute July 23, 2024 8:33am Chronic kidney disease, stage 3 manager research development mg July 23, 2024 8:33am Essential (primary) hypertension chronic July 23, 2024 8 :33am Hyperlipidemia chronic July 23, 2024 8:33am History of non-ST elevation myocardial infarction (NSTEMI) April, resolved J une 2024 8:33am Acute cystitis without hematuria acute August 07, 2024 8:16pm Acute hypotension acute August 072024 8:16pm Ritchie's disease acute August 072024 8:16pm Aortic stenosis [...] 07 8:16pm Chronic kidney disease, stage 3 manager research development mg August 07, 2024 8:16pm [facility] Work Phone: 1(607) 462-503103-10-2025 Evaluation note* Diagnosis Onset Date Resolution Status Admit Date Aortic stenosis acute April 10:53am shelter (current) use of anticoagulants acute April 29, 2024 10:53am MVP (mitral valve prolapse) acute April 29, 2024 10:53am Chronic kidney disease, stage 3 manager research development mg April 29, 2024 10:53am Essential (primary) hypertension chronic April 29, 2024 10:53am Hyperlipidemia chronic April 10:53am History of non-ST elevation myocardial infarction (NSTEMI) April, resolved M arch 2024 10:53am Aortic stenosis acute July 23, 2024 8:33am 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 acute July 23, 2024 8 :33am MVP (mitral valve prolapse) acute July 23, 2024 8:33am Chronic kidney disease, stage 3 manager research development mg July 23, 2024 8:33am Essential (primary) hypertension chronic July 23, 2024 8 :33am Hyperlipidemia chronic July 23, 2024 8:33am History of non-ST elevation myocardial infarction (NSTEMI) April, resolved J [facility] 2024 8:33am Acute cystitis without hematuria acute August 07, 2024 8:16pm Acute hypotension acute August 072024 8:16pm Ritchie's disease acute August 072024 8:16pm Aortic stenosis acute July 8:16pm Aortic stenosis, severe acute J [facility] 2024 8:16pm Bradycardia acute August 07 8:16pm [...] 07 8:16pm Chronic kidney disease, stage 3 manager research development mg August 07, 2024 8:16pm [facility] Work Phone: 1(120) 247-422802-14-2025 NoteHNO ID: [id number] Author: DEL SARAVIA MA Service: ? Author Type: Radiologic Therapist Type: Progress Notes Filed: 04/05/2024 15:22 Note [...] or unnecessary to reach patient: Left message CourseHorse[employer] message sent Navigation Signature: Del Saravia MA April 05, 2024 3:11 [facility]02-14-2025 History of Present illness Narrative* Del [...] or unnecessary to reach patient: Left message [employer] message sent Navigation Signature: Del Saravia MA April 05, 2024 3:11 PM documented in this encounterPomerene Hospital02-14-2025 NotePatient Outreach (NETNAV) LINDA PERALTA ([id number]) 1945 F Date Time Provider Department 04/05/24 [...] in*02/22/2024 Encounter Status:Closed by DEL SARAVIA on 04/05/24[facility] 02-22-[facility]24 Telephone encounter Note* Telephone Encounter - Carlos Roe RN - 02/22/2024 9:13 AM EST Pt called and is notified of results and given providers message. Pt voices understanding. States her Band Tier is Dr. Alexander Gregory in [facility]. 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 Will fax this msg and CT scan report to his office. [facility]01-02-2025 Miscellaneous Notes* Telephone Encounter - Carlos Roe RN - 02/22/2024 9:13 AM EST Pt called and is notified of results and given providers message. Pt voices understanding. States her Band Tier is Dr. Alexander Gregory in [facility]. 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 [...] of her rightthyroid. She should have her housing liaison follow up on this at her next routine appointment. documented in this encounterPomerene Hospital01-02-2025 Telephone encounter Note * Telephone Encounter - Carlos Roe RN - 02/22/2024 9:09 AM EST ----- Message from Amos Floyd MD sent at 02/22/2024 12:42 AM EST ----- Nodule on chest xray is a healed rib fracture. What needs follow up is a 1.1 cm nodule of her rightthyroid. She should have her housing liaison follow up on this at her next routine appointment. [facility]12-12-2024 History of Present illness Narrative* Gisela [...] PATIENT PRESENTS WITH AN IMPLANTABLE OR ATTACHED PHYSICIAN CREDENTIALING SPECIALIST: No RADIOLOGY DEPARTMENT: CT; Exam(s) Completed: Chest PERIPHERAL IV DATA: Not applicable SIGNED BY: JOESPH Higgins February 01, 2024 11:10 AM documented in this encounterPomerene Hospital12-12-2024 NoteHNO ID: [id number] Author: GISELA BAIRD CT Service: Radiology Author Type: Health Communications Specialist Type: Progress Notes Filed: 02/01/2024 11:10 Note [...] PATIENT PRESENTS WITH AN IMPLANTABLE OR ATTACHED PHYSICIAN CREDENTIALING SPECIALIST: No RADIOLOGY DEPARTMENT: CT; Exam(s) Completed: Chest PERIPHERAL IV DATA: Not applicable SIGNED BY: JOESPH Higgins February 01, 2024 11:10 [facility]12-03-2024 Instructions* Patient Instructions* Amos Floyd MD - [...] review all the medicines you take, even [id number] medicines. As you get older, the way [...] or wearing slippers. For more information, contact: [facility] for Disease Control and Prevention www.cdc.gov/injury * This information may not apply if you have certain medical conditions. documented in this encounterPomerene Hospital12-03-2024 NoteHNO ID: [id number] Author: AMOS FLOYD MD Service: ? Author Type: Physician Type: Progress Notes Filed: 01/23/2024 14:09 Note Text: This note was created using Italia [employer]. Subjective Linda Peralta is a 78 year [...] immunization - ICD9: V03.89, ICD10: Z23 - Advanced Telemetry-JumpStart COVID-19 VACCINE AGE 12+ YR ([place]) - [...] 39 Stable - Couns (more content not included)...[facility]12-03-2024 History of Present illness Narrative* Amos Floyd MD - 01/23/2024 10:34 AM EST This note was created using Stealzter. Subjective Linda Peralta is a 78 year [...] Deconditioning Weakness Nstemi (Non-St Elevated Myocardial Infarction) ([facility]) Adrenal Insufficiency (Hcc) Nonrheumatic Aortic Valve Stenosis [...] immunization - ICD9: V03.89, ICD10: Z23 - BioGreen Teck COVID-19 VACCINE AGE 12+ YR ([place]) - [...] - General Outside specialists seen: Cardiology-Dr. Ortega [facility] Nephrology- Dr. Jennifer Tarango Wire Saw Operator- Dr. Isreal Carpio Endocrinology- Dr. Alexander Gregory. [...] interested in routine screening. documented in this encounterPomerene Hospital12-03-2024 NoteHNO ID: [id number] Author: AMOS FLOYD MD Service: ? Author [...] - General Outside specialists seen: Cardiology-Dr. Ortega [facility] Nephrology- Dr. Jennifer Tarango Wire Saw Operator- Dr. Isreal Carpio Endocrinology- Dr. Alexander Gregory. [...] she was no longer interested in routine screening.[facility]11-29[facility]24 Telephone encounter Note* Telephone Encounter - Kelley Rivera LPN - 01/19/2024 3:49 PM EST Called pt and reviewed. She says cardiology wanted chest CT repeated next year. She has appt with pcp 01/23/24 she will review then to see when this needs repeated. [facility]11-29-2024 Miscellaneous Notes* Telephone Encounter - Kelley [...] support you in caring for your patient. [facility] is committed to providing safe care [...] to the appropriate caregiver. documented in this encounterPomerene Hospital11-29-2024 Telephone encounter Note * Telephone Encounter [...] support you in caring for your patient. [facility] is committed to providing safe care [...] we can redirect to the appropriate caregiver. [facility]11-25-2024 NoteHNO ID: [id number] Author: AMOS FLOYD MD Service: ? Author Type: Physician Type: Progress Notes Filed: 01/15/2024 18:51 Note Text: ASSESSMENT/PLAN: 1. Nodule of lower lobe of right lung needing follor up CT - ICD9: 793.11, ICD10: R91.1 - CT CHEST WO IVCON Amos Floyd [facility]11-25-2024 History of Present illness Narrative* Amos Floyd MD - 01/15/2024 6:50 PM EST ASSESSMENT/PLAN: 1. Nodule of lower lobe of right lung needing follor up CT - ICD9: 793.11, ICD10: R91.1 - CT CHEST WO SHEILA Floyd MD documented in this encounterPomerene Hospital11-21-2024 NoteHNO ID: [id number] Author: DESIRAE ARZOLA LPN Service: ? Author Type: LICENSED NURSE Type: Progress Notes Filed: 01/11/2024 13:42 Note Text: Patient presents for Prolia injection. Denies any problems at this time. Patient instructed on any SE of medication, verbalized understanding and agreed to proceed with treatment. Tolerated injection well. [facility] History of Present illness Narrative* Desirae Arzola LPN - 01/11/2024 1:41 PM EST Patient presents for Prolia injection. Denies any problems at this time. Patient instructed on any SE of medication, verbalized understanding and agreed to proceed with treatment. Tolerated injectionwell. Desirae Arzola LPN documented in this encounterPomerene Hospital11-11-2024 History of Present illness Narrative* Marguerite [...] PATIENT PRESENTS WITH AN IMPLANTABLE OR ATTACHED PHYSICIAN CREDENTIALING SPECIALIST: No RADIOLOGY DEPARTMENT: General X-ray: Exam(s) Completed: Chest X-Ray PERIPHERAL IV DATA: Not applicable SIGNED BY: RT Doug(Lin) January 01, 2024 1:40 PM documented in this encounterPomerene Hospital11-11-2024 NoteHNO ID: [id number] Author: MARGUERITE WALLER RT(R) Service: Radiology Author [...] PATIENT PRESENTS WITH AN IMPLANTABLE OR ATTACHED PHYSICIAN CREDENTIALING SPECIALIST: No RADIOLOGY DEPARTMENT: General X-ray: Exam(s) Completed: Chest X-Ray PERIPHERAL IV DATA: Not applicable SIGNED BY: Marguerite Waller RT(R) January 01, 2024 1:40 [facility]11-08-2024 History of Present illness Narrative* Javier Abbott PA-C - 12/29/2023 9:30 AM EST Images from the original note were not included. [facility] PATIENT NAME: Linda Peralta [...] had X-ray a few weeks before at [facility] and we don't have the images [...] eczema, due to unspecified cause 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Ritchie's disease Cystocele, midline 07/23/2007 Diverticulosis of colon (without mention of hemorrhage) DVT (deep venous thrombosis) ([facility]) 03/23/2012 DVT of lower extremity (deep venous thrombosis) ([facility]) 03/27/2009 Esophageal reflux Gallstones 03/06/2016 Hypercalcemia 03/19/2009 Hypertension Nonrheumatic aortic valve stenosis 06/30/2023 NSTEMI (non-ST elevated myocardial infarction) ([facility]) 04/27/2009 Cardiac cath normal Osteopenia on chronic [...] W/COLLJ SPEC WHEN PFRMD 03/26/2010 Inpatient at [facility] ESOPHAGOGASTRODUODENOSCOPY TRANSORAL DIAGNOSTIC 02/2002 EGD ESOPHAGOGASTRODUODENOSCOPY TRANSORAL [...] PM Nurse, Nerissa SMITH [facility] Live 01/23/2024 9:40 AM Amos Floyd MD INTWS [facility] Follow-up Plan Additional exams needed for this [...] no, patient declined? No documented in this encounterPomerene Hospital11-07-2024 Miscellaneous Notes* Telephone Encounter - Kelley Rivera LPN - 12/28/2023 11:57 AM EST Pt notified. Nurse visit arranged for 01/01/24. * Telephone Encounter - Kelley Rivera LPN - 12/28/2023 10:50 AM EST Called Pattie at [phone]. This PA is completed with pharmacy to aileen them at [phone]. This reference number is [id number]. Called pharmacy and they report there is a PA already on file for Dr. Rey Vann covered until 05/11/24. Did start a new PA for pcp. This was reviewed over the phone and PA approved from 12/28/23 to 12/27/24. This auth number is [id number]. They will also fax approval notice too. [...] 1:21 PM EST Bone density completed at [facility]. View External Imaging - Bone Density [ID [id number]] Previously completed PA for prolia to be [...] prilia is still recommended documented in this encounterPomerene Hospital11-07-2024 Telephone encounter Note * Telephone Encounter - Kelley Rivera LPN - 12/28/2023 11:57 AM EST Pt notified. Nurse visit arranged for 01/01/24. [facility]11-07-2024 Telephone encounter Note* Telephone Encounter - Kelley Rivera LPN - 12/28/2023 10:50 AM EST Called Pattie at [phone]. This PA is completed with pharmacy to aileen them at [phone]. This reference number is [id number]. Called pharmacy and they report there is a PA already on file for Dr. Rey Vann covered until 05/11/24. Did start a new PA for pcp. This was reviewed over the phone and PA approved from 12/28/23 to 12/27/24. This auth number is [id number]. They will also fax approval notice too. [facility]11-07-2024 Telephone encounter Note* Telephone Encounter - [...] No answer. Try again. Ariella Christianson RN [facility]11-06-2024 Telephone encounter Note* Telephone Encounter - [...] and is she to start taking both? [facility]11-06-2024 Telephone encounter Note* Telephone Encounter - Isha Wright LPN - 12/27/2023 2:38 PM EST Left message for Patient to call office. Isha Wright LPN [facility]11-06-2024 Telephone encounter Note* Telephone Encounter - [...] 1:21 PM EST Bone density completed at [facility]. View External Imaging - Bone Density [ID [id number]] Previously completed PA for prolia to be [...] if prilia is still recommended [facility]10-30-2024 History of Present illness Narrative* Nathaly Ren APRN.PILL PACKER - 12/20/2023 12:29 PM EDT Images from [...] call back and/or check MyChart Routed to Mandic for scheduling 12/20/2023 Imaging result: routed to [...] chest outside hospital 05/15/2023 documented in this encounterPomerene Hospital10-21-2024 Telephone encounter Note * Telephone Encounter - Torsten Vora MA - 12/11/2023 9:20 AM EDT Patient notified, verbalized understanding. DXA scheduled for 12/20 [facility]10-21-2024 Miscellaneous Notes* Telephone Encounter - Torsten [...] Please advise patient, and cancel Rx at [facility]. * Telephone Encounter - Kelley Rivera LPN [...] 12/07/2023 10:08 AM EDT Fax rec'd from [facility] regarding the prolia. They note [...] went to pharmacy benefits. LINDA PERALTA (Kelly: [id number]) - [id number] Prolia 60MG/ML syringes status: PA Request Created: [...] her insurance from 02/20/23 to 02/20/2024 through [facility]. Will call her insurance to see if we can just change the provider and place of service. There wouldbe no change with her clinical requirements. * Telephone Encounter - Kelley Rivera LPN - 12/05/2023 4:19 PM EDT PA needed for prolia. documented in this encounterPomerene Hospital10-19-2024 Telephone encounter Note * Telephone Encounter - Amos Floyd MD - 12/09/2023 12:11 PM EDT Okay. Do bone density and we'll evaluate options at her follow up in January. [facility]10-18-2024 Telephone encounter Note* Telephone Encounter - [...] Please advise patient, and cancel Rx at [facility]. [facility]10-17-20[facility] Telephone encounter Note* Telephone Encounter - [...] the injection for the nurse to give. [facility]10-17-2024 Telephone encounter Note* Telephone Encounter - Amos Floyd MD - 12/07/2023 12:16 PM EDT The following approved medication requests have been transmitted electronically. Requested Prescriptions Signed Prescriptions Disp Refills denosumab (PROLIA) 60 mg/mL 1 mL 1 Sig: Inject 1 mL subcutaneously once every 6 months. Authorizing Provider: AMOS FLOYD MD [facility]10-17-2024 Telephone encounter Note* Telephone Encounter - Kelley Rivera LPN - 12/07/2023 10:08 AM EDT Fax rec'd from [facility] regarding the prolia. They note the prescription is already covered by the plan with no restrictions with pharmacy D plan. Pt will need rx to local pharmacy and bring to an appt with nurse schedule to be given here. [facility]10-16-2024 Telephone encounter Note* Telephone Encounter - Kelley Rivera LPN - 12/06/2023 4:32 PM EDT Pt notified we are waiting for insurance to review a prior auth for the prolia [facility]10-16-2024 Telephone encounter Note* Telephone Encounter - [...] Rivera LPN December 06, 2023 4:29 PM [facility]10-16-2024 Miscellaneous Notes* Telephone Encounter - Kelley [...] 06, 2023 4:29 PM documented in this encounterPomerene Hospital10-16-2024 Telephone encounter Note * Telephone Encounter - Kelley Rivera LPN - 12/06/2023 3:55 PM EDT This went to pharmacy benefits. LINDA PERALTA (Kelly: [id number]) - [id number] Prolia 60MG/ML syringes status: PA Request Created: December 06, 2023 Sent: December 06, 2023 Will see what their response is,may have to call for medical benefits PA coverage to review. [facility]10-16-[facility] Telephone encounter Note* Telephone Encounter - Kelley Rivera LPN - 12/06/2023 2:15 PM EDT Per benefits inquiry it appears pt is covered now with [employer] medicare. [facility]10-16-2024 Telephone encounter Note* Telephone Encounter - Kelley Rivera LPN - 12/06/2023 2:12 PM EDT Called [employer] and pt no longer covered. This was terminated 02/20/23. [facility]10-16-[facility] Telephone encounter Note* Telephone Encounter - Kelley Rivera LPN - 12/06/2023 12:25 PM EDT In review the prolia is already approved with her insurance from 02/20/23 to 02/20/2024 through [facility]. Will call her insurance to see if we can just change the provider and place of service. There wouldbe no change with her clinical requirements. [facility]10-15-2024 Telephone encounter Note* Telephone Encounter - Kelley Rivera LPN - 12/05/2023 4:19 PM EDT PA needed for prolia. [facility]10-11-2024 Telephone encounter Note* Telephone Encounter - [...] Please review and advise, Salima Pedraza RN [facility]10-11-2024 Miscellaneous Notes* Telephone Encounter - Salima [...] 1:57 PM Dxa scan order faxed to [facility]. * Telephone Encounter - Amos Floyd MD - 11/30/2023 12:24 PM EDT ASSESSMENT/PLAN: 1. Age-related osteoporosis with current pathological fracture with routine healing - ICD9: V54.29,733.01, ICD10: M80.00XD - DENOSUMAB 60 MG/ML SUBCUTANEOUS SYRINGE. Ordered. - DXA-AXIAL SKELETON. Do this at [facility] where she's had previous bone densities. Amos Floyd MD * Telephone Encounter - Va Aguayo RN - 11/28/2023 2:31 PM EDT Patient returned call and given provider's message below. Patient states she does not see Dr. Vann any more-that she was dismissed from them due to Dr. Vann does not work with Ritchie's Disease. She states her last Prolia injection was in May and she is due. Patient asking if Dr. Floyd would be agreeable to placing a Prolia injection order for her? Reports she could see a Dr. Gregory in [place], [facility] of [facility], for this but more convenientfor her to ask PCP. Or, does PCP feel she does need any further Prolia injections? Please advise. Thank you. * Telephone Encounter - Isha Wright LPN - 11/28/2023 1:55 PM EDT Left message to call & speak to nurse. Isha Wright LPN * Telephone Encounter - Rocio Elizalde APRN.PILL PACKER - 11/28/2023 1:38 PM EDT It looks like this is being managed by Dr. King Rocio Elizalde APRN.PILL PACKER * Telephone Encounter - Jeaneth Rodriguez - 11/28/2023 11:42 AM EDT Pt wondering if Dr. Amor can order a prolia shot for her, please review and advise. Jeaneth Rodriguez November 28, 2023 11:42 AM documented in this encounterPomerene Hospital10-10-2024 Telephone encounter Note * Telephone Encounter - Torsten Vora MA - 11/30/2023 1:57 PM EDT Left message to call office. 11/30/2023 1:57 PM Dxa scan order faxed to [facility]. [facility]10-10-20[facility] Telephone encounter Note* Telephone Encounter - Amos Floyd MD - 11/30/2023 12:24 PM EDT ASSESSMENT/PLAN: 1. Age-related osteoporosis with current pathological fracture with routine healing - ICD9: V54.29,733.01, ICD10: M80.00XD - DENOSUMAB 60 MG/ML SUBCUTANEOUS SYRINGE. Ordered. - DXA-AXIAL SKELETON. Do this at [facility] where she's had previous bone densities. Amso Floyd MD [facility]10-08-2024 Telephone encounter Note* Telephone Encounter - [...] she could see a Dr. Gregory in [place], [facility] of [facility], for this but more convenientfor her to ask PCP. Or, does PCP feel she does need any further Prolia injections? Please advise. Thank you. [facility]10-08-2024 Telephone encounter Note* Telephone Encounter - Isha Wright LPN - 11/28/2023 1:55 PM EDT Left message to call & speak to nurse. Isha Wright LPN [facility]10-08-2024 Telephone encounter Note* Telephone Encounter - Rocio Elizalde APRN.CNP - 11/28/2023 1:38 PM EDT It looks like this is being managed by Dr. King Rocio Elizalde APRN.PILL PACKER [facility]10-08-2024 Telephone encounter Note* Telephone Encounter - Jeaneth Rodriguez - 11/28/2023 11:42 AM EDT Pt wondering if Dr. Amor can order a prolia shot for her, please review and advise. Jeaneth Rodriguez November 28, 2023 11:42 AM [facility]09-24-2024 History of Present illness Narrative* Jacey Reyes RN - 11/14/2023 3:40 PM EDT CC [facility] NURSE - CHART REVIEW Provider [facility] Action Chart review 06/08/23 [facility] ED for patient had 2 episodes of chest pain approximately 15 minutes, described as a dull pressure in her chest associate with nausea that have since resolved. This happened earlier this morning. Patient is on Coumadin, for repeat lower extremity DVTs. 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 She was also foundto have UTI and hypercalcemia Pt TT [facility] for ADM with NSTEMI. Pt identified by name and . Reason for Review: Payor request Patient Attributed To: ERICE Payer: PATTIE Chart Review For: Utilization: ED Total Patient High CostTotal Patient High Cost {HIGH COST:770752) Quality measure review Payor request for assistance Action Taken: Data submitted to payor Jacey Reyes RN November 14, 2023 3:40 PM documented in this encounterPomerene Hospital07-30-2024 History of Present illness Narrative* Kole El, PT - 09/19/2023 12:06 PM EDT Program_ID:[id number] Access Code: [email or web address] URL: [email or web address] Date: 09-19-2023 Prepared By: Kole El Program [...] included: Therapeutic exercise, Neuromuscular re-education, Manual therapy, Self-long-term management, andGait training. Updated 05/31/23 & 07/05/23, 08/09/23, 09/19/23. Goals for Episode of Care: created on 03/28/23 through 09/19/23 Amanda in home exercise program.-- MET Patient will [...] 1203 Kole El PT documented in this encounterPomerene Hospital07-23-2024 History of Present illness Narrative* Kole [...] 1152 Kole El PT documented in this encounterPomerene Hospital07-19-2024 History of Present illness Narrative* Kole [...] 1508 Kole El PT documented in this encounterPomerene Hospital07-10-2024 History of Present illness Narrative* Kole [...] 1528 Kole El PT documented in this encounterPomerene Hospital07-01-2024 History of Present illness Narrative* Jacinda [...] 1225 AURELIA Crockett PT documented in this encounterPomerene Hospital06-21-2024 History of Present illness Narrative* Amos Floyd MD - 08/11/2023 10:58 AM EDT This note was created using [employer]. Subjective Linda Peralta is a 78 year old female here with her daughter. Her blood pressure was improving, and she was able to complete physical therapy this week. I had advised her to take amlodipine 5 mg 2 tablets daily, which was from her healthcare risk control consultant. They had been titrating her dose upward. She was scheduled to see her housing liaison, Dr. Gregory at . He did not [...] Group. Amos Floyd MD documented in this encounterPomerene Hospital06-20-2024 Telephone encounter Note * Telephone Encounter - Isha Wright LPN - 08/10/2023 10:28 AM EDT Below recommendation left on identified vm. Isha Wright LPN [facility]06-20-2024 Miscellaneous Notes* Telephone Encounter - Isha [...] high blood pressure. Patient did not read Kalion message 07/18. Clarify with patient what she is taking for hypertension. Further instructions to follow. Keep appointment this week. documented in this encounterPomerene Hospital06-20-2024 Telephone encounter Note * Telephone Encounter - Amos Floyd MD - 08/10/2023 6:10 AM EDT I think she should increase amlodipine to 10 mg daily. Heart [facility] gave her 90 day supply so take two tablets daily. [facility]06-19-[facility] History of Present illness Narrative* Kole [...] of Care: created on 03/28/23 through 08/09/23 Amanda in home exercise program.-- Met continue to [...] Patient to be seen for Therapeutic exercise (72360), Neuromuscular re-education (71806), Manual therapy (08004), Self-long-term management (36275), Therapeutic activities (19580), Gait Training (25061), Patient/Family/Caregiver Education, General Conditioning PLAN FOR NEXT [...] 957 Kole El PT documented in this encounterPomerene Hospital06-18-2024 Telephone encounter Note * Telephone Encounter [...] to her appt. 08/11/2023. Isha Wright LPN [facility]06-18-2024 Telephone encounter Note* Telephone Encounter - Amos Floyd MD - 08/08/2023 2:42 PM EDT PT not done due to high blood pressure. Patient did not read Kalion message 07/18. Clarify with patient what she is taking for hypertension. Further instructions to follow. Keep appointment this week. [facility]06-12-[facility] History of Present illness Narrative* Kole [...] toward set goals. PLAN FOR NEXT VISIT: GA. SUBJECTIVE: Patient reports starting to take amlodipine [...] Intra BP 1: 164/108 (Leaving Appt.) TREATMENT: Self-Long-Term Management: 1: *Subjective assessment taken, discussed patient's [...] 931 Kole El PT documented in this encounterPomerene Hospital05-29-2024 History of Present illness Narrative* Kole [...] 2 weeks ago she tried to see Studio Manager but reports the physician wasn't there and was rescheduled 07/26/23 @2pm. Patient reports she stopped taking a medication prescribed to her (she doesn't know the name off hand) because it was making her BP reading to high - states her PCP and Studio Manager are not aware of this. Pain: Not Assessed this visit. OBJECTIVE MEASURES WITH LEVEL OF FUNCTION: Vitals BP: 164/108 (Resting.) Pulse: 85 Pre BP: 163/117 (12 Minutes into appt after sitting and discussing BP and medications.) Intra BP 1: 170/116 (Leaving Appt.) TREATMENT: Self-Long-Term Management: 1: *Subjective assessment taken, BP readings [...] 919 Kole El PT documented in this encounterPomerene Hospital05-15-2024 History of Present illness Narrative* Kole [...] of Care: created on 03/28/23 through 08/09/23 Amanda in home exercise program.-- Met continue to [...] Patient to be seen for Therapeutic exercise (39093), Neuromuscular re-education (75215), Manual therapy (97484), Self-long-term management (27382), Therapeutic activities (52804), Gait Training (62968), Patient/Family/Caregiver Education, General Conditioning PLAN FOR NEXT [...] and manually with different UEs; discussed the [facility] clinic guidelines for BP and physical activity. [...] resting above clinic guidelines for physical activity. Self-Long-Term Management: 1: *Progress check & subjective assessment [...] 1015 Kole El PT documented in this encounterPomerene Hospital05-10-2024 History of Present illness Narrative* Amos Floyd MD - 06/30/2023 9:49 AM EDT This note was created using [employer]. Subjective Linda Peralta is a 78 year old female was here with her daughter. She started having issues with hypercalcemia and weakness 05/14. Her housing liaison sent her to the ED for IV [...] (Arteriosclerotic Heart Disease) Dvt (Deep Venous Thrombosis) ([facility]) Chronic Nonallergic Rhinitis Pure hypercholesterolemia Atopic Neurodermatitis [...] (primary diagnosis) Follow up with endocrinology at [facility]. Labs ordered to facilitate and [...] 410.70, ICD10: I21.4 Follow up today with [facility]. 6. ASHD (arteriosclerotic heart disease) - ICD9: 414.00, ICD10: I25.10 See above. 7. Nonrheumatic aortic valve stenosis - ICD9: 424.1, ICD10: I35.0 Monitored per cardiology. Amos Floyd MD documented in this encounterPomerene Hospital05-08-2024 History of Present illness Narrative* Kole [...] 1202 Kole El PT documented in this encounterPomerene Hospital05-01-2024 History of Present illness Narrative* Kole El, PT - 06/21/2023 1:42 PM EDT Program_ID:[id number] Access Code: [email or web address] URL: [email or web address] Date: 06-21-2023 Prepared By: Kole El Program [...] RLE. 4: Standing Marches: 2x10 ea. 5: [place] Carries: 2 Laps of 60 Feet, 8#db [...] 1342 Kole El PT documented in this encounterPomerene Hospital04-29-2024 Telephone encounter Note * Telephone Encounter - Delfino Hannah APRN.CNP - 06/19/2023 10:44 AM EDT Please make a hospital follow up appointment to be seen by Dr. Baig or Nurse practitioner in 6-8 weeks. Thank you, Delfino Hannah APRN.TELLY [facility] Work Phone: 1(185) 900-722304-29-2024 Miscellaneous Notes* Telephone Encounter - Delfino Hannah APRN.CNP - 06/19/2023 10:44 AM EDT Please make a hospital follow up appointment to be seen by Dr. Baig or Nurse practitioner in 6-8 weeks. Thank you, Delfino Hannah APRN.CNP documented in this encounterPomerene Hospital04-24-2024 History of Present illness Narrative* Kole [...] recent hospital admission. She demonstrated difficulty with nbm-ai-tmmbqj. The patient will continue to benefit from ongoing skilled physical therapy to progress toward set goals. PLAN FOR NEXT VISIT: Gross LE Strengthening; Endurance and Conditioning following hospital admission; take vitals throughout. SUBJECTIVE: Patient reports hospital admission at [facility] for cardiac issues/NSTEMI, also found with UTI and hypercalcemia. Was on Heparin in the hospital. Was admitted in [facility] since last 06/08/23. Physicians have since released her and stated to continue physical activity as able. States she is now on a protein diet. States taking BP today 138/83 this a.m. Pain: Pain Pain Level: 0 Post Treatment Pain Post Treatment Pain Level: 0 OBJECTIVE MEASURES WITH LEVEL OF FUNCTION: Decreased eccentric control down to chair from oah-dp-owpemz. Vitals BP: 157/106 (Initial.) Pulse: 87 SpO2: 98 % Additional Vitals: Yes Pre Assessment: BP Pre BP: 169/104 (84bpm. After Step-Ups.) Intra Assessment 1: BP Intra 1 Intra BP 1: 174/104 (After Hko-qs-Kcpgna; ended session following.) Intra Assessment 2: BP Intra 2 Intra BP 2: 154/104 (BP before leaving.) TREATMENT: Therapeutic Exercise: 1: Warm Up on SCI-FIT: 6 Minutes (Vitals and Subjective Taken: Direct 1:1.) 2: 6 Fwd Stepups: 2x12 ea. leg. 3: 6 Lateral Stepups: 2x12 ea. 4: Chair Wne-xi-hgxitn: 2x5. (Patient required assist from 2 UEs [...] 1155 Kole El PT documented in this encounterPomerene Hospital04-18-2024 Miscellaneous Notes* Telephone Encounter - Jorge [...] and currently taking hydrocortisone, prescribed by in [place]. Today dealing with CP on right side [...] 11. : Post menopause. Protocols used: Chest Qggi-JVSXG-CP documented in this encounterPomerene Hospital04-18-2024 Telephone encounter Note * Telephone Encounter - Thelma Suarez LPN - 06/08/2023 11:03 AM EDT Message below given to daughter. Daughter reports pt is having chest pain and problems swallowing. RN to triage call further. Thelma Suarez LPN [facility]04-18-2024 Miscellaneous Notes* Telephone Encounter - Thelma Suarez LPN - 06/08/2023 11:03 AM EDT Message below given to daughter. Daughter reports pt is having chest pain and problems swallowing. RN to triage call further. Thelma Suarez LPN * Telephone Encounter - Prachi Farrar MA - 06/08/2023 9:15 AM EDT Left message for return call. * Telephone Encounter - Rocio Elizalde APRN.PILL PACKER - 06/08/2023 8:30 AM EDT She should continue with the midodrine until she sees Dr. Floyd on 06/29, I will send in a refill to get her through until this appointment Rocio Elizalde APRN.PILL PACKER * Telephone Encounter - Prachi Farrar MA - 06/07/2023 6:24 PM EDT Patient states she is to have blood work in [address] Gregory in 4 weeks. No medicationchanges. * Telephone Encounter - Rocio Elizalde APRN.CNP - 06/07/2023 5:46 PM EDT BP looks better. Did she have follow-up with Dr. Gregory? Did he make any medication changes? /Rocio Elizalde APRN.PILL PACKER * Telephone Encounter - Milagros Burton LPN [...] PM EDT ----- Message from Rocio Elizalde APRN.PILL PACKER sent at 05/31/2023 12:58 PM EDT ----- Please call patient for home blood pressure readings documented in this encounterPomerene Hospital04-18-2024 Telephone encounter Note * Telephone Encounter - Prachi Farrar MA - 06/08/2023 9:15 AM EDT Left message for return call. [facility]04-18-[facility] Telephone encounter Note* Telephone Encounter - Rocio Elizalde APRN.CNP - 06/08/2023 8:30 AM EDT She should continue with the midodrine until she sees Dr. Floyd on 06/29, I will send in a refill to get her through until this appointment Rocio Elizalde APRN.PILL PACKER [facility]04-17-2024 Telephone encounter Note* Telephone Encounter - Prachi Farrar MA - 06/07/2023 6:24 PM EDT Patient states she is to have blood work in [address] Gregory in 4 weeks. No medicationchanges. [facility]04-17-[facility] Telephone encounter Note* Telephone Encounter - Rocio Elizalde APRN.CNP - 06/07/2023 5:46 PM EDT BP looks better. Did she have follow-up with Dr. Gregory? Did he make any medication changes? /Rocio Elizalde APRN.PILL PACKER [facility]04-17-2024 Telephone encounter Note* Telephone Encounter - [...] standing 1120 am 150/76 pulse 110 standing [facility]04-17-2024 Telephone encounter Note* Telephone Encounter - Torsten Vora MA - 06/07/2023 2:42 PM EDT Left message to call office. 06/07/2023 2:42 PM [facility]04-17-[facility] Telephone encounter Note* Telephone Encounter - Torsten Vora MA - 06/07/2023 2:37 PM EDT ----- Message from Rocio Elizalde APRN.PILL PACKER sent at 05/31/2023 12:58 PM EDT ----- Please call patient for home blood pressure readings [facility]04-10-2024 Miscellaneous Notes* Telephone Encounter - Kelley Rivera LPN - 05/31/2023 2:18 PM EDT [facility] infusion suite called asking for dx for INR. In review dx of DVT code was given per problem list. documented in this encounterPomerene Hospital04-10-2024 History of Present illness Narrative* Rocio Elizalde APRN.CNP - 05/31/2023 1:01 PM EDT PT requesting orders Rocio Elizalde APRN.CNP documented in this encounterPomerene Hospital04-10-2024 History of Present illness Narrative* Rocio Elizalde APRN.CNP - 05/31/2023 11:26 AM EDT CC: Patient presents with: Hospital F/U: High calcium HPI Linda Peralta is a 78 year old female who presents today for above. Patient was admitted to 05/23 to 05/25 for elevated calcium, weakness and hypotension. She had been treated for this a couple weeks prior at [facility] with [facility] infusion. Levels had initially improved but were high again on repeat outpatient labs. She has a history of idiopathic hypercalcemia. She was treated with Calcitonin during this admission which lowered ionized calcium from 1.53 to 1.32. Her housing liaison is Dr. Gregory at , she is scheduled for follow-up with him on 06/05. Her main concern today is weakness, lightheadedness and hypotension. She was taken off blood pressure medications by her healthcare risk control consultant due to hypotension, last dose was over two weeks ago. Checking her BP at home, fluctuates between 100's/60's to 130's/80's. She does feel lightheaded when her BP is low. Weakness has been an ongoing issue however she was starting to improve with PT until now. She has a history of Moris's disease. Her Cortef dose was being titrated down by previous housing liaison due to bone loss which is also [...] of hemorrhage) DVT (deep venous thrombosis) ([facility]) 03/23/2012 DVT of lower extremity (deep venous thrombosis) ([facility]) 03/27/2009 Esophageal reflux Gallstones 03/06/2016 Hypercalcemia 03/19/2009 Hypertension NSTEMI (non-ST elevated myocardial infarction) ([facility]) 04/27/2009 Cardiac cath normal Other adrenal hypofunction [...] W/COLLJ SPEC WHEN PFRMD 03/26/2010 Inpatient at [facility] ESOPHAGOGASTRODUODENOSCOPY TRANSORAL DIAGNOSTIC 02/2002 EGD ESOPHAGOGASTRODUODENOSCOPY TRANSORAL [...] dupilumab 300 mg/2 mL subcutaneous pen injector ([employer]) .[id number] fluticasone (FLONASE) 50 mcg/actuation nasal spray Use [...] ICD10: I95.89 (primary diagnosis) Suspect secondary to Ritchie's and possibly decreased dose of Cortef. Discussed with patient's PCP,the following recommendations reviewed with patient and daughter: IV fluid bolus, will fax orders to [facility] as there is no availability within [facility]. Start Midodrine, see orders. Continue to maintain adequate hydration to include not only water but other liquids as well to avoid hemodilution. Continue to monitor BP at home, we will call her next week for readings Follow-up with housing liaison next week as scheduled Follow-up with PCP in one month 2. 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 Hypercalcemia - ICD9: 275.42, ICD10: E83.52 As above Prescription instructions reviewed with patient as applicable. Potential red flag symptoms discussed with the patient. Reviewed appropriate action plan to take if red flag symptoms occur. Patient agreeable to treatment plan. Rocio Elizalde APRN.PILL PACKER documented in this encounterDavid Ville [address]-10-2024 History of Present illness Narrative* Kole El, PT - 05/31/2023 10:27 AM EDT Program_ID:[id number] Access Code: [email or web address] URL: [email or web address] Date: 05-31-2023 Prepared By: Kole El Program [...] of Care: created on 03/28/23 through 07/05/23 Amanda in home exercise program.-- Met continue to [...] Patient to be seen for Therapeutic exercise (64801), Neuromuscular re-education (80279), Manual therapy (50060), Self-long-term management (06738), Therapeutic activities (73136), Gait Training (79739), Patient/Family/Caregiver Education, General Conditioning PLAN FOR NEXT [...] program to facilitate proper performance and compliance. Self-Long-Term Management: 1: *Longer discussion regarding recent decline [...] 1032 Kole El PT documented in this encounterPomerene Hospital04-05-2024 History of Present illness Narrative* Temitope [...] Unit/Bed: 1008/1008-A Date of : 1945 Acct: [id number] Admitting Diagnosis: Hypercalcemia [E83.52] Date: 05/24/2023 Hospital [...] Generalized muscular History of donor nephrectomy History Ritchie's disease HTN UTI GERD History of PE/DVT [...] note, this documentation is completed using the [employer] system (voice recognition software). There may be [...] came to the hospital on 05/23 from [place] [facility]. dx: hypercalcemia. test/labs : calcium 11.1. [...] and LUE LUE: Within Functional Limits Outcome Measures:[facility] Daily Activity Putting on and taking [...] disease (CMS/HCC) DVT (deep venous thrombosis) (CMS/HCC) Ritchie's disease (CMS/HCC) Primary hypertension Pure hypercholesterolemia Urinary [...] came to the hospital on 05/23 from [place] [facility]. dx: hypercalcemia. test/labs : calcium 11.1. [...] LLE : Within Functional Limits Outcome Measures: [facility] Basic Mobility Turning from your back [...] Comments No comments found. * Raisa Frederick, DISEASE EDUCATION SPECIALIST-PILL PACKER - 05/24/2023 2:23 PM EDT Daily Progress Note Linda Peralta is a 78 y.o. female on day 1 of admission presenting with Hypercalcemia. Subjective Patient seen sitting up in the chair without any complaints. Patient was transferred from [facility] after found to have elevated ionized calcium. [...] note, this documentation is completed using the [employer] Dictation system (voice recognition software). There may [...] be discharged to: Home Patient is from [facility], is here d/t hypercalcemia and her provider [...] with stage 3b chronic kidney disease (CMS/HCC) Ritchie's disease ([facility]) Urinary tract infection, site not specified Assessment [...] continue LOS: 1 day documented in this [facility] Work Phone: 1(326) 633-282204-05-2024 Hospital course Narrative* Raisa Frederick APRN-PILL PACKER - 05/26/2023 12:30 PM EDT Discharge Diagnosis [...] HTN, GERD, PE/DVT on warfarin presenting to [facility] from [facility] after found to have elevated ionized calcium on routine lab work. Patient presented to [facility] for IV fluids, UAreportedly showed evidence of [...] future appointments. NICOLE Wilkinson documented in this [facility] Work Phone: 1(687) 438-843204-04-2024 Hospital Note* Hospital Course - NICOLE Wilkinson - 05/25/2023 11:49 AM EDT Linda Peralta is a 78 y.o. female with a significant past medical history of hypercalcemia, Ritchie's disease, HTN, GERD, PE/DVT on warfarin presenting to [facility] from [facility] after found to have elevated ionized calcium on routine lab work. Patient presented to [facility] for IV fluids, UAreportedly showed evidence of [...] On day of discharge patient hemodynamically stable. [facility] Work Phone: 1([phone]) 343-641304-04-2024 Miscellaneous Notes* Hospital Course - NICOLE Wilkinson - 05/25/2023 11:49 AM EDT Linda Peralta is a 78 y.o. female with a significant past medical history of hypercalcemia, Ritchie's disease, HTN, GERD, PE/DVT on warfarin presenting to [facility] from [facility] after found to have elevated ionized calcium on routine lab work. Patient presented to [facility] for IV fluids, UAreportedly showed evidence of [...] discharge patient hemodynamically stable. documented in this encounterFort [facility] Hospital Work Phone: 1(816) 815-137904-04-2024 Hospital Discharge instructions* Discharge Instructions* NICOLE Wilkinson - 05/25/2023 11:45 AM EDT Thank you for choosing [facility]. It has been a pleasure taking part in your medical care. Please follow up with your primary care provider as instructed. If your symptoms should persist or worsen, please contact your primary care physician, or in the case of an emergency proceed to the nearest Emergency Room for further care. If you have any questions about the care you received, please call [facility] at . Thank you again! TELLY Kline documented in this encounterFort [facility] Hospital Work Phone: [phone]) 613-892404-03-2024 Consult note* Alexander Gregory MD - 05/24/2023 [...] IV fluids and transferred her over to [facility]. Here she has been feeling [...] HTN, GERD, PE/DVT on warfarin presenting to [facility] from [facility] after found to have elevated ionized calcium on routine lab work. Patient presented to [facility] for IV fluids, UAreportedly showed evidence of [...] and daughter at bedside Souleymane Syedruff [POA] [phone]; patient has advanced directives - not available in [place], family encouraged to bring to hospital or [...] Colin Gregory MD FACE Office phone - [phone] Fax - [phone] Address: [address] [place] [id number] Address: [address] [place] [address] 05/24/2023 9:13 PM [facility] Work Phone: 1(340) 366-282004-03-2024 Consult note* Alexander Gregory MD - 05/24/2023 [...] IV fluids and transferred her over to [facility]. Here she has been feeling [...] HTN, GERD, PE/DVT on warfarin presenting to [facility] from [facility] after found to have elevated ionized calcium on routine lab work. Patient presented to [facility] for IV fluids, UAreportedly showed evidence of [...] and daughter at bedside Souleymane Lopez [POA] [phone]; patient has advanced directives - not available [...] Colin Gregory MD FACE Office phone - [phone] Fax - [phone] Address: [address] [facility] [address] Address: [address] [facility] [address] 05/24/2023 9:13 PM documented in this [facility] Work Phone: 1([phone]) 505-543904-03-2024 History and physical note* NICOLE Ahmadi - 05/24/2023 2:11 AM EDT Medical Group History and Physical ASSESSMENT & PLAN: Hypercalcemia Hx donor nephrectomy Hx Ritchie's disease - IVF 100ml/hr x1day; regular diet - tele x 1day d/t above dx - labs: PTH, ionized ca, vit D, CMP, CBC, lactate - Consult to Endocrine - known to Dr Gregory UTI symptom of increased frequency and urgency, no dysuria - Send UA - started on keflex 500 BID - from [facility] - cont this admission - noted [...] upload POA - daughter - Souleymane Lopez [phone] VTE Prophylaxis: Resume warfarin NICOLE Ahmadi HISTORY OF PRESENT ILLNESS: Chief Complaint: hypercalcemia History Of Present Illness: Linda Peralta is a 78 y.o. female with a significant past medical history of hypercalcemia, Ritchie's disease, HTN, GERD, PE/DVT on warfarin presenting to [facility] from [facility] after found to have elevated ionized calcium on routine lab work. Patient presented to [facility] for IV fluids, UAreportedly showed evidence of [...] and daughter at bedside Souleymane Syedruff [POA] [phone]; patient has advanced directives - not available in [place], family encouraged to bring to hospital or [...] IVF, labs ordered, Endo consult Adrenal hypofunction ([facility]/HCC) Overview Signed 05/24/2023 2:02 AM by NICOLE [...] 0.1 mg MWF, prednisone 5 mg Sat [place]. (): admitted for loss of consciousness, orthostatic, [...] disease with stage 3b chronic kidney disease ([facility]) DVT (deep venous thrombosis) ([facility]) Overview Signed 05/24/2023 2:02 AM by NICOLE Ahmadi 2009 Moris's disease ([facility]) Overview Signed 05/24/2023 2:02 AM by NICOLE [...] 24 hour(s)). Imaging: No orders to display [facility] Work Phone: 1(352) 545-400204-03-2024 History and physical note* NICOLE Ahmadi - 05/24/2023 2:11 AM EDT Medical Group History and Physical ASSESSMENT & PLAN: Hypercalcemia Hx donor nephrectomy Hx Ritchie's disease - IVF 100ml/hr x1day; regular diet [...] upload POA - daughter - Souleymane Lopez [phone] VTE Prophylaxis: Resume warfarin NICOLE Ahmadi HISTORY OF PRESENT ILLNESS: Chief Complaint: hypercalcemia History Of Present Illness: Linda Peralta is a 78 y.o. female with a significant past medical history of hypercalcemia, Moris's disease, HTN, GERD, PE/DVT on warfarin presenting to [facility] from [facility] after found to have elevated ionized calcium on routine lab work. Patient presented to [facility] for IV fluids, UAreportedly showed evidence of [...] and daughter at bedside Souleymane Lopez [POA] [phone]; patient has advanced directives - not available in [facility], family encouraged to bring to [...] IVF, labs ordered, Endo consult Adrenal hypofunction ([facility]/HCC) Overview Signed 05/24/2023 2:02 AM by NICOLE [...] disease with stage 3b chronic kidney disease ([facility]/HCC) DVT (deep venous thrombosis) ([facility]) Overview Signed 05/24/2023 2:02 AM by Shakira Anutnez APRN-TELLY 2009 Ritchie's disease ([facility]) Overview Signed 05/24/2023 2:02 AM by Shakira Antunez APRN-PILL PACKER dx by endo years ago Primary hypertension [...] No orders to display documented in this encounterFort [facility] Hospital Work Phone: 1(457) 138-506204-02-2024 Telephone encounter Note* Telephone Encounter - Elijah Freed MD - 05/23/2023 6:53 PM EDT Called by lab regarding patient's critical ionized calcium level of 1.69 which is up from 1.6 on 05/11. Noted patient was sent to the ER by her housing liaison with this lower reading on 05/11. Called patient who states that she does feel dizzy, mild confusion, muscle weakness, increased thirst. Recommended patient return to the ER for further workup and treatment. Patient will have her daughter drive her. Called and spoke with Dr Lott at [facility] ER and was given report. [facility] Work Phone: 1(303) 932-211504-02-2024 Miscellaneous Notes* Telephone Encounter - Elijah Freed MD - 05/23/2023 6:53 PM EDT Called by lab regarding patient's critical ionized calcium level of 1.69 which is up from 1.6 on 05/11. Noted patient was sent to the ER by her housing liaison with this lower reading on 05/11. Called patient who states that she does feel dizzy, mild confusion, muscle weakness, increased thirst. Recommended patient return to the ER for further workup and treatment. Patient will have her daughter drive her. Called and spoke with Dr Lott at [facility] ER and was given report. documented in this encounterPomerene Hospital04-02-2024 Discharge summary Author Ankush Noguera [facility] May 23, 2023 10:48pm Note Date/Time May 23, 2023 10:4 2pm [facility] Medical Records Department [address] [place] [address] Emergency Department Summary 05/23/23 MR#: [id number] Acct: [id number] Name: LINDA PERALTA Rep #:[id number] : 1945 78 From: Ankush Noguera DO PCP: Dr. Amos Floyd MD Status:R EG ER Location: ED HPI History of Present Illness Chief Complaint: Abn Labs Narrative Narrative: 78-year-old female with history of Ritchie's disease who currently is treated byDr. Gregory from [facility] for this. Patient was seen [...] does states she feels generally weak. [facility] Medical History Acute electrocardiogram changes [...] mg/mL subcutaneous syringe (Prolia) 60 mg subcut [id number] #1 mL 11/24/22 [Rx Last Taken Unknown] [...] safe at home: Yes additional social history: [place]- Retired patient is retired ROS ROS ED [...] felt she [facility] at night that she got back to the emergency room today dueto the repeat lab work. He recommended admission for IV fluids and offered to have the patient admitted to [facility] versus here at [facility] however patient expressed her previous history of Dr. Vann from endocrinology was not good and she preferred to be transferred over to [facility] where her housing liaison is for further testing and treatment. Currently awaiting follow-up call from the transfer line. She will need to be transferred but I believe she is stable for transfer via car and Dr. Gregory agreed but we are currently awaiting a bed assignment. Patient will be transferred when a bed is obtained. Impression: 1. Hypercalcemia 2. Generalized weakness 3. History of Ritchie's disease Lab Data Labs: Laboratory Results - last 24 hr 05/23/23 20:30 WBC 9.5 RBC 5.07 Hgb 14.5 Hct 43.3 MCV 85.4 MCH 28.6 MCHC 33.5 RDW Std Deviation 44.1 H RDW Coeff of Slava 14.2 Plt Count 271 MPV 10.9 Immature Gran % (Auto) 0.900 Neut % (Auto) 59.7 Lymph % (Auto) 19.2 Hubbard % (Auto) 9.7 Eos % (Auto) 9.7 [...] Prolia 60 mg/mL syringe 60 mg subcut [id number] Qty: 1 1RF amlodipine 2.5 mg tablet [...] problems, contact your Primary Care Provider. Call [facility] ([phone]) or report to the closest Emergency Room. Call 911 if necessary. 05/23/23 3113 <Electronically signed by Ankush Noguera DO> Cosigner Signature (if applicable): CC: Dr. Amos Floyd MD ~ Signed [facility] Work Phone: 1(807) 711-671304-02-2024 History of Present illness Narrative* Rocio Elizalde, DISEASE EDUCATION SPECIALIST.PILL PACKER - 05/23/2023 12:24 PM EDT CC: Patient presents with: ED Follow-up: [facility] ER HPI Linda Peralta is a 78 year old female who presents today with her daughter for above. Patient hadlab work ordered by her housing liaison Dr. Gregory on 05/14 which revealed critically high Calcium/ionized calcium. She was instructed to go to the ER immediately that day for treatment. She was treated at [facility] ER with IV fluids and Zometa infusion. [...] eczema, due to unspecified cause 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Ritchie's disease Cystocele, midline 07/23/2007 Diverticulosis of colon (without mention of hemorrhage) DVT (deep venous thrombosis) (FORM[facility]LY [facility]) 03/23/2012 DVT of lower extremity (deep venous thrombosis) ([facility]) 03/27/2009 Esophageal reflux Gallstones 03/06/2016 Hypercalcemia 03/19/2009 Hypertension NSTEMI (non-ST elevated myocardial infarction) ([facility]) 04/27/2009 Cardiac cath normal Other adrenal hypofunction [...] W/COLLJ SPEC WHEN PFRMD 03/26/2010 Inpatient at [facility] ESOPHAGOGASTRODUODENOSCOPY TRANSORAL DIAGNOSTIC 02/2002 EGD ESOPHAGOGASTRODUODENOSCOPY TRANSORAL [...] dupilumab 300 mg/2 mL subcutaneous pen injector ([employer]) .[id number] meclizine (ANTIVERT) 25 mg tab Take 1 [...] REVIEWED: Most recent labs Outside chart from [facility] ER reviewed. ASSESSMENT/PLAN: 1. Hypercalcemia - ICD9: [...] Patient agreeable to treatment plan. Rocio Elizalde APRN.PILL PACKER documented in this encounterCleveland [id number] Miscellaneous Notes* Telephone Encounter - Carlos Roe RN - 05/23/2023 11:37 AM EDT Pt calling in again regarding below. Scheduled ER f/u visit for today at 1220 with Rocio Elizalde. * Telephone Encounter - Milagros Burton LPN - 05/22/2023 8:49 AM EDT Patient calling with question she was in [facility] ER on 05/14. She was dehydrated and low blood pressure.She said her calcium level was elevated, she was given IV medication to lower the calcium. Patient asking if she should do more lab work to recheck her calcium level? Please advise documented in this encounterPomerene Hospital04-02-2024 Miscellaneous Notes* Telephone Encounter - Carlos Roe RN - 05/23/2023 10:42 AM EDT Pt calling in again about repeating labs and concerns. ER f/u appt given for today with Rocio Elizalde at 1220 pm. documented in this encounterPomerene Hospital03-25-2024 Discharge summary Author Juan Alberto Mcclendon [facility] May 15, 2023 8:38pm Note Date/Time May 15, 2023 3:1 7pm [facility] Medical Records Department [address] [place] [address] Emergency Department Summary 05/15/23 MR#: [id number] Acct: [id number] Name: LINDA PERALTA Rep #:[id number] : 1945 78 From: Juan Alberto Mcclendon MD PCP: Dr. Amos Floyd MD Status:R EG ER Location: ED HPI History of Present Illness Chief Complaint: Abn Labs Informant: patient and family (daughter) Narrative Narrative: Patient sent in by her housing liaison Dr. Gregory at for high calcium level [...] because of her abnormal labs. She has Ritchie's syndrome, she is on daily hydrocortisone 20 [...] in triage her blood pressure 68/51. 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 After receiving the labs back, I will call the housing liaison prior to administering any of these medications. [...] as well. Called to discuss with her housing liaison Dr. Gregory, discussed with his PA who [...] (Auto) 65.8 Lymph % (Auto) 15.8 L Hubbard % (Auto) 10.7 H Eos % (Auto) [...] EDT , Management Discussion w/another healthcare provider: Deputy Director Of Nursing (Endocrine [facility]) Discharge Plan Triage Chief Complaint: Abn Labs ED Provider: Juan Alberto Mcclendon Dx/Rx/DC Orders Clinical Impression: Hypercalcemia, Ritchie disease, Transient hypotension Instructions: Hypercalcemia Dc Prescriptions: [...] Prolia 60 mg/mL syringe 60 mg subcut [id number] Qty: 1 1RF amlodipine 2.5 mg tablet [...] your Primary Care Provider. Call [facility] ([phone]) or report to the closest Emergency Room. Call 911 if necessary. 05/15/232037 <Electronically signed by Juan Alberto Mcclendon MD> Cosigner Signature (if applicable): CC: Dr. Amos Floyd MD ~ Signed [facility] Work Phone: 1(840) 638-464003-25-2024 Miscellaneous Notes* Telephone Encounter - Amos Floyd MD - 05/15/2023 3:38 PM EDT Noted. * Telephone Encounter - Ama Diaz RN - 05/15/2023 1:22 PM EDT Pts daughter Souleymane called in and reports her mothers Band Tier Dr Gregory from [facility] called and told her mother to go to the ER. He said her Calcium was critically high, and she needs hydration, Zometa, and Calcitonin. Pt will be going to [facility]. documented in this encounterPomerene Hospital03-19-2024 History of Present illness Narrative* José Shi PT, DPT - 05/09/2023 8:58 AM EDT Program_ID:[id number] Access Code: [email or web address] URL: [email or web address] Date: 05-09-2023 Prepared By: Koel El Program Notes Exercises - Supine Bridge with Mini Sudanese Ball Between Knees - 2 x daily [...] José Shi PT, DPT documented in this encounterPomerene Hospital03-12-2024 History of Present illness Narrative* José Shi PT, DPT - 05/02/2023 8:55 AM EDT Program_ID:[id number] Access Code: [email or web address] URL: [email or web address] Date: 05-02-2023 Prepared By: Kole El Program Notes Exercises - Supine Bridge with Mini Sudanese Ball Between Knees - 2 x daily [...] of Care: created on 03/28/23 through 05/30/23 Amanda in home exercise program.-- Met continue to [...] Patient to be seen for Therapeutic exercise (69593), Neuromuscular re-education (43459), Manual therapy (82628), Self-long-term management (89565), Therapeutic activities (10305), Gait Training (72838), Patient/Family/Caregiver Education PLAN FOR NEXT VISIT: Assess [...] José Shi PT DPDana documented in this encounterPomerene Hospital02-20-2024 History of Present illness Narrative* Kole [...] Clamshells: 2x12 ea., PinkTb. 3: Bridges: 2x12, [place] TB 4: Supine SLR: 2x6, 2#cuff. 5: [...] 1111 Kole El PT documented in this encounterPomerene Hospital02-12-2024 History of Present illness Narrative* Kole El, PT - 04/03/2023 10:57 AM EST Program_ID:[id number] Access Code: [email or web address] URL: [email or web address] Date: 04-03-2023 Prepared By: Kole El Program [...] 1100 Kole El PT documented in this encounterPomerene Hospital02-06-2024 History of Present illness Narrative* Kole El PT - 03/28/2023 9:04 AM EST Program_ID:[id number] Access Code: [email or web address] URL: [email or web address] Date: 03-28-2023 Prepared By: Kole El Program [...] of Care: created on 03/28/23 through 05/09/23 Amanda in home exercise program. Patient will decrease [...] Planned: 6 Planned Treatment Interventions: Therapeutic exercise (23725), Neuromuscular re- education (32749), Manual therapy (19598), Self-long-term management (67324), Therapeutic activities (85602), Gait Training (09143), Patient/Family/Caregiver Education PLAN FOR NEXT VISIT: Assess [...] Mechanics TREATMENT: PT Treatment Interventions: Therapeutic Exercise, Self-Long-Term Management Evaluation Therapeutic Exercise: 1: *S/L Hip [...] facilitated with verbal, visual, and tactile cuing. Self-Long-Term Management: 1: Extended time spent rationalizing and [...] 904 Kole El PT documented in this encounterPomerene Hospital02-02-2024 Miscellaneous Notes* Telephone Encounter - Jaquelin Mcgraw Ma - 03/24/2023 11:33 AM EST Patient called in and message from Dr. Cruz given. She verbalized understanding. documented in this [facility]11-30-2023 History of Present illness Narrative* Amos Floyd MD - 01/19/2023 1:31 PM EST This note was created using [employer] Franchiser[employer]. Subjective Linda Peralta is a 77 year [...] General Cardiology-Dr. Marte Nephrology- Dr. Jennifer Tarango Wire Saw Operator- Dr. Carpio Endocrinology- Dr. Torsten Vann (osteoporosis), [...] Personalized prevention plan provided documented in this encounterPomerene Hospital11-29-2023 History of Present illness Narrative* Amy [...] 18, 2023 10:53 AM documented in this encounterPomerene Hospital10-30-2023 History of Present illness Narrative* Omar [...] 5.3 4.3 - 5.6 % Final Comment: [place] [employer] guidelines indicate that patients with [...] eczema, due to unspecified cause 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Ritchie's disease Cystocele, midline 07/23/2007 Diverticulosis of colon (without mention of hemorrhage) DVT (deep venous thrombosis) ([facility]) 03/23/2012 DVT of lower extremity (deep venous thrombosis) ([facility]) 03/27/09 Esophageal reflux Gallstones 03/06/2016 Hypercalcemia 03/19/2009 Hypertension NSTEMI (non-ST elevated myocardial infarction) ([facility]) April 27, 2009 Cardiac cath normal Other [...] W/COLLJ SPEC WHEN PFRMD 03/26/2010 Inpatient at [facility] ESOPHAGOGASTRODUODENOSCOPY TRANSORAL DIAGNOSTIC 02/2002 EGD ESOPHAGOGASTRODUODENOSCOPY TRANSORAL [...] Up Julieta Avendano LPN documented in this encounterPomerene Hospital10-30-2023 Instructions* Patient Instructions* Omar Cruz - 12/19/2022 12:24 PM EDT Powerstep Original Full length. Can purchase at [email or web address] here in [place], [employer] in [place] or [place]. Also can find in [place] in [facility]. Powersteps can also be purchased online, [...] everything fits well together documented in this encounterPomerene Hospital10-13-2023 Miscellaneous Notes* Telephone Encounter - Kelley [...] notify patient. Kylah mcdermott documented in this encounterPomerene Hospital10-12-2023 History of Present illness Narrative* Marguerite [...] 01, 2022 11:40 AM documented in this encounterPomerene Hospital09-19-2023 History of Present illness Narrative* Jacinda [...] history is provided by the patient. No healthcare interpreter was used. Pain (foot) Pain location: right [...] eczema, due to unspecified cause 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Ritchie's disease Cystocele, midline 07/23/2007 Diverticulosis of colon (without mention of hemorrhage) DVT (deep venous thrombosis) ([facility]) 03/23/2012 DVT of lower extremity (deep venous thrombosis) ([facility]) 03/27/09 Esophageal reflux Gallstones 03/06/2016 Hypercalcemia 03/19/2009 Hypertension NSTEMI (non-ST elevated myocardial infarction) ([facility]) April 27, 2009 Cardiac cath normal Other [...] W/COLLJ SPEC WHEN PFRMD 03/26/2010 Inpatient at [facility] ESOPHAGOGASTRODUODENOSCOPY TRANSORAL DIAGNOSTIC 02/2002 EGD ESOPHAGOGASTRODUODENOSCOPY TRANSORAL [...] made at time of exam. Jacinda Enriquez APRN.PILL PACKER documented in this encounterPomerene Hospital09-12-2023 History of Present illness Narrative* Kole [...] of Care: created on 11/01/22 through 01/01/23 Amanda in home exercise program. Patient will decrease [...] Planned: 8 Planned Treatment Interventions: Therapeutic exercise (11726), Neuromuscular re- education (50919), Manual therapy (65559), Self-long-term management (49858), Therapeutic activities (02309), Gait Training (00215), Patient/Family/Caregiver Education PLAN FOR NEXT VISIT: Muscle [...] PT Treatment Interventions: Therapeutic Exercise, Manual Therapy, Self-Long-Term Management Evaluation Therapeutic Exercise: 1: Supine Hip [...] Quads: Push to tolerance. 3: Manual Long [place] L Hip Distraction: Pull to patient tolerance. Skilled Intervention: Manual skills to improve joint mobility, ROM, and decrease pain. Utilized anatomy knowledge of the therapist, and assessment of patient's response to intervention. Self-Long-Term Management: 1: Education on anatomy & physiology [...] 0900 Kole El PT documented in this encounterPomerene Hospital09-06-2023 History of Present illness Narrative* Marguerite [...] 26, 2022 2:40 PM documented in this encounterPomerene Hospital09-06-2023 History of Present illness Narrative* Amos Floyd MD - 10/26/2022 2:10 PM EDT This note was created using [employer]. Subjective Patient presents with: Left Hip Pain [...] HIGH-DOSE) Amos Floyd MD documented in this encounterPomerene Hospital07-31-2023 Miscellaneous Notes* Telephone Encounter - Carla [...] notify patient. Edda Loya documented in this encounterPomerene Hospital06-07-2023 Miscellaneous Notes* Telephone Encounter - Sharon Pierre RN - 07/27/2022 2:31 PM EDT Returned call to [facility]- ICD code provided (L20.81) * Telephone Encounter - Faye Harris - 07/27/2022 1:27 PM EDT Specialty Pharmacy phoned requesting a ICD9 Code for ADBRY medication Please advise pharmacy using ref #[id number] documented in this encounterPomerene Hospital06-02-2023 Miscellaneous Notes* Telephone Encounter - Sharon Pierre RN - 07/22/2022 1:07 PM EDT [facility]LMA 05/2022 * Telephone Encounter - Vashti Avendano Pss - 07/22/2022 10:20 AM EDT [facility] specialty pharmacy called and stated that they need a new script for the ADBRY sent to them. Please call [phone] or escribe fax at [phone] documented in this encounterPomerene Hospital05-31-2023 History of Present illness Narrative* Rocio Johnson, DISEASE EDUCATION SPECIALIST.PILL PACKER - 07/20/2022 10:03 AM EDT CC: Patient presents with: F/U 6 months HPI Linda Peralta is a 77 year old female who presents today for above. HTN/ASHD-[place] cardiology. Next follow-up in one week. 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 Managed by endocrinology. Prolia injections every 6 months. Atopic neurodermatitis- managed by [facility] chip tuner. Not responsive to current treatments. Startedon new medication called Adbry however her pharmacy has not received this yet. VTE- lifelong anticoagulation with Coumadin. INR's managed by healthcare risk control consultant. REVIEW OF SYSTEMS See HPI PAST MEDICAL HISTORY Diagnosis Date Anemia 08/26/2009 ASHD (arteriosclerotic heart disease) 04/25/2009 Asthma Benign neoplasm of colon 04/26/2005 Tubular adenoma Chronic diarrhea 03/15/2010 Chronic sphenoidal sinusitis 09/15/2003 Collagenous colitis 03/30/2010 Contact dermatitis and other eczema, due to unspecified cause 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Ritchie's disease Cystocele, midline 07/23/2007 Diverticulosis of colon (without mention of hemorrhage) DVT (deep venous thrombosis) ([facility]) 03/23/2012 DVT of lower extremity (deep venous thrombosis) ([facility]) 03/27/09 Esophageal reflux Gallstones 03/06/2016 Hypercalcemia 03/19/2009 Hypertension NSTEMI (non-ST elevated myocardial infarction) ([facility]) April 27, 2009 Cardiac cath normal Other [...] W/COLLJ SPEC WHEN PFRMD 03/26/2010 Inpatient at [facility] ESOPHAGOGASTRODUODENOSCOPY TRANSORAL DIAGNOSTIC 02/2002 EGD ESOPHAGOGASTRODUODENOSCOPY TRANSORAL [...] patient asymptomatic at this time. Recommend calling healthcare risk control consultant office if continues - Continue current medication(s) [...] plan. Rocio Johnson APRN.CNP documented in this encounterPomerene Hospital04-05-2023 History of Present illness Narrative* Ryan [...] Past Histories independently gathered by the clinical passport support manager. documented in this encounterPomerene Hospital01-25-2023 Miscellaneous Notes* Telephone Encounter - Sharon Pierre RN - 03/16/2022 9:52 AM EST Received fax from [employer]- Prior authorization approval for Opzelura 1.5% cream. This authorization is good until 02/19/2023. Pharmacy notified. * Telephone Encounter - Sharon Pierre RN - 03/15/2022 2:16 PM EST Prior authorization requested for Opzelura 1.5% cream via EPA. Will await determination documented in this encounterPomerene Hospital01-23-2023 Miscellaneous Notes* Telephone Encounter - Donald James RPh - 03/14/2022 1:[address] Gale, This was sent to our pharmacy, however this is something we do not service. Please sign this order to have it sent to patient's preferred pharmacy. Thank you Donald James, PharmD Clinical Pharmacist, Oncology [facility] P: ; F: Pool: P SPEC PHARMACY ONCOLOGY Pool #: [id number] documented in this encounterPomerene Hospital01-04-2023 History of Present illness Narrative* Ryan [...] Past Histories independently gathered by the clinical passport support manager. documented in this encounterPomerene Hospital10-31-2022 Instructions* Patient Instructions* Rocio Johnson APRN.PILL PACKER - 12/20/2021 9:17 AM EDT Please call the office after your follow-up with healthcare risk control consultant in January for an update on your blood pressure and if any medication changes were made documented in this encounterPomerene Hospital10-31-2022 History of Present illness Narrative* Rocio [...] eczema, due to unspecified cause 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Ritchie's disease Cystocele, midline 07/23/2007 Diverticulosis of colon (without mention of hemorrhage) DVT (deep venous thrombosis) ([facility]) 03/23/2012 DVT of lower extremity (deep venous thrombosis) ([facility]) 03/27/09 Esophageal reflux Gallstones 03/06/2016 Hypercalcemia 03/19/2009 Hypertension NSTEMI (non-ST elevated myocardial infarction) ([facility]) April 27, 2009 Cardiac cath normal Other [...] W/COLLJ SPEC WHEN PFRMD 03/26/2010 Inpatient at [facility] ESOPHAGOGASTRODUODENOSCOPY TRANSORAL DIAGNOSTIC 02/2002 EGD ESOPHAGOGASTRODUODENOSCOPY TRANSORAL [...] seen: Cardiology-Dr. Marte Nephrology- Dr. Jennifer Tarango Wire Saw Operator- Dr. Carpio Endocrinology- Dr. Torsten Vann (osteoporosis), [...] at this time. - Patient was counseled [id number] by myself (the billing provider) for the [...] YR Rocio Johnson APRN.CNP documented in this encounterPomerene Hospital10-19-2022 Miscellaneous Notes* Letter - Mammography Coordinator - 12/08/2021 2:02 PM EDT December 08, 2021 PID: [id number] Linda Peralta [address] [place] [address] Dear Ms. Peralta, We are pleased to [...] report will be kept [facility] as part of your permanent medical record and are available for your continuing care. Thank you for allowing us to help in meeting your health care needs. Sincerely, Dr. Madden Interpreting Radiologist [facility] (Normal over 40) documented in this encounterPomerene Hospital10-19-2022 History of Present illness Narrative* Damion [...] 08, 2021 12:55 PM documented in this encounterPomerene Hospital10-17-2022 History of Present illness Narrative* Amos [...] breast - ICD9: V76.12, ICD10: Z12.31 - [facility] SCREENING Amos Floyd MD documented in this [facility]10-13-2022 Miscellaneous Notes* Telephone Encounter - Gifty Velazquez [...] and advise. Va Harris documented in this encounterPomerene Hospital10-06-2022 Instructions* Patient Instructions* Ryan Gale MD [...] CeraVe moisturizer as well. documented in this encounterPomerene Hospital10-06-2022 History of Present illness Narrative* Ryan [...] daily. dupilumab 300 mg/2 mL subcutaneous syringe ([employer]) Inject 300 mg SQ every 2 weeks [...] and Past Histories independentlygathered by the clinical passport support manager and the remaining scribed note accurately describes my personal service to the patient. Signature: Ryan Gale Date: 11/25/2021 Time: 10:54 PM documented in this encounterPomerene Hospital09-08-2022 History of Present illness Narrative* Luciana Zuniga RN - 10/28/2021 3:04 PM EDT [facility] Enrollment Provider Action/FYI: lvm x 1 and MC Patient referred by: PCC/PCP referral Contact made with patient: No - Left Message: Hi my name is Luciana Zuniga RN and I am calling from the [facility] on behalf of your PCP, Amos Floyd MD. We are excited to share with you a new program to help you manage your health. Please call me back at [phone] between the hours of 8am-5pm Monday-Monday. You will receive another phone call from me within the next two businessdays. I hope you can take the time to speak with me. (Keep encounter open and attempt 2nd outreachin two business days from today) END OUTREACH documented in this encounterPomerene Hospital08-25-2022 Miscellaneous Notes* Telephone Encounter - Milagros [...] return to express care. documented in this encounterPomerene Hospital08-24-2022 History of Present illness Narrative* Irene [...] eczema, due to unspecified cause 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Ritchie's disease Cystocele, midline 07/23/2007 Diverticulosis of colon (without mention of hemorrhage) DVT (deep venous thrombosis) (FORM[facility]LY [facility]) 03/23/2012 DVT of lower extremity (deep venous thrombosis) ([facility]) 03/27/09 Esophageal reflux Gallstones 03/06/2016 Hypercalcemia 03/19/2009 Hypertension NSTEMI (non-ST elevated myocardial infarction) ([facility]) April 27, 2009 Cardiac cath normal Other [...] W/COLLJ SPEC WHEN PFRMD 03/26/2010 Inpatient at [facility] ESOPHAGOGASTRODUODENOSCOPY TRANSORAL DIAGNOSTIC 02/2002 EGD ESOPHAGOGASTRODUODENOSCOPY TRANSORAL [...] daily. dupilumab 300 mg/2 mL subcutaneous syringe (DUPIXKlarna) Inject 300 mg SQ every 2 weeks [...] illness Irene Mendenhall APRN.CNP [facility] Instructions* Patient Instructions* Irene Mendenhall APRN.CNP [...] to your local emergency facility: Notify the radio intelligence operator that you are seeking care for [...] or concerning to you. documented in this encounter[facility] Instructions* Patient Instructions* Nevin Lee PA-C - 08/25/2021 1:44 PM EDT Images from the original note were not included. documented in this encounterPomerene Hospital07-06-2022 History of Present illness Narrative* Nevin [...] Past Histories independently gathered by the clinical passport support manager. Nevin Lee MS, REJI documented in this encounterP[facility]05-31-[facility]22 History of Present illness Narrative* Amos Floyd MD - 07/20/2021 9:15 AM EDT This note was created using [employer]. Subjective Linda Peralta is a 76 year [...] TOP) Amos Floyd MD documented in this encounterPome[facility]01-19-2017 History of Past illness Narrative* Problem [...] heparin, ASA, plavix 300, atorvastatin - plan [facility] tomorrow. Hypokalemia 04/09/2009 05/14/2009 Overview: -Replete. [...] of this encounter (statuses as of 07/20/2021) [facility] of Past illness Narrative* Problem [...] heparin, ASA, plavix 300, atorvastatin - plan [facility] tomorrow. Hypokalemia 04/09/2009 05/14/2009 Overview: -Replete. [...] of this encounter (statuses as of 08/25/2021) [facility] of Past illness Narrative* Problem [...] heparin, ASA, plavix 300, atorvastatin - plan [facility] tomorrow. Hypokalemia 04/09/2009 05/14/2009 Overview: -Replete. [...] of this encounter (statuses as of 10/13/2021) [facility] of Past illness Narrative* Problem [...] heparin, ASA, plavix 300, atorvastatin - plan [facility] tomorrow. Hypokalemia 04/09/2009 05/14/2009 Overview: -Replete. [...] of this encounter (statuses as of 10/14/2021) [facility] of [facility] illness Narrative* Problem [...] heparin, ASA, plavix 300, atorvastatin - plan [facility] tomorrow. Hypokalemia 04/09/2009 05/14/2009 Overview: -Replete. [...] of this encounter (statuses as of 10/28/2021) [facility] of [facility] illness Narrative* Problem [...] heparin, ASA, plavix 300, atorvastatin - plan [facility] tomorrow. Hypokalemia 04/09/2009 05/14/2009 Overview: -Replete. [...] of this encounter (statuses as of 11/26/2021) [facility] illness Narrative* Problem [...] heparin, ASA, plavix 300, atorvastatin - plan [facility] tomorrow. Hypokalemia 04/09/2009 05/14/2009 Overview: -Replete. [...] of this encounter (statuses as of 12/03/2021) [facility] of [facility] illness Narrative* Problem [...] heparin, ASA, plavix 300, atorvastatin - plan [facility] tomorrow. Hypokalemia 04/09/2009 05/14/2009 Overview: -Replete. [...] of this encounter (statuses as of 12/06/2021) [facility] of [facility] illness Narrative* Problem [...] heparin, ASA, plavix 300, atorvastatin - plan [facility] tomorrow. Hypokalemia 04/09/2009 05/14/2009 Overview: -Replete. [...] of this encounter (statuses as of 12/09/2021) [facility] illness Narrative* Problem [...] heparin, ASA, plavix 300, atorvastatin - plan [facility] tomorrow. Hypokalemia 04/09/2009 05/14/2009 Overview: -Replete. [...] of this encounter (statuses as of 12/10/2021) [facility] of [facility] illness Narrative* Problem [...] heparin, ASA, plavix 300, atorvastatin - plan [facility] tomorrow. Hypokalemia 04/09/2009 05/14/2009 Overview: -Replete. [...] of this encounter (statuses as of 12/20/2021) [facility] Narrative* Problem [...] heparin, ASA, plavix 300, atorvastatin - plan [facility] tomorrow. Hypokalemia 04/09/2009 05/14/2009 Overview: -Replete. [...] of this encounter (statuses as of 02/25/2022) [facility] illness Narrative* Problem [...] heparin, ASA, plavix 300, atorvastatin - plan [facility] tomorrow. Hypokalemia 04/09/2009 05/14/2009 Overview: -Replete. [...] of this encounter (statuses as of 03/15/2022) [facility] Narrative* Problem [...] heparin, ASA, plavix 300, atorvastatin - plan [facility] tomorrow. Hypokalemia 04/09/2009 05/14/2009 Overview: -Replete. [...] of this encounter (statuses as of 03/16/2022) [facility] illness Narrative* Problem [...] heparin, ASA, plavix 300, atorvastatin - plan [facility] tomorrow. Hypokalemia 04/09/2009 05/14/2009 Overview: -Replete. [...] of this encounter (statuses as of 06/06/2022) [facility] Narrative* Problem [...] heparin, ASA, plavix 300, atorvastatin - plan [facility] tomorrow. Hypokalemia 04/09/2009 05/14/2009 Overview: -Replete. [...] of this encounter (statuses as of 07/20/2022) [facility] Narrative* Problem [...] heparin, ASA, plavix 300, atorvastatin - plan [facility] tomorrow. Hypokalemia 04/09/2009 05/14/2009 Overview: -Replete. [...] of this encounter (statuses as of 07/23/2022) [facility] Narrative* Problem [...] heparin, ASA, plavix 300, atorvastatin - plan [facility] tomorrow. Hypokalemia 04/09/2009 05/14/2009 Overview: -Replete. [...] of this encounter (statuses as of 07/27/2022) [facility] Narrative* Problem [...] heparin, ASA, plavix 300, atorvastatin - plan [facility] tomorrow. Hypokalemia 04/09/2009 05/14/2009 Overview: -Replete. [...] of this encounter (statuses as of 09/20/2022) [facility] illness Narrative* Problem [...] heparin, ASA, plavix 300, atorvastatin - plan [facility] tomorrow. Hypokalemia 04/09/2009 05/14/2009 Overview: -Replete. [...] of this encounter (statuses as of 10/27/2022) [facility] illness Narrative* Problem [...] heparin, ASA, plavix 300, atorvastatin - plan [facility] tomorrow. Hypokalemia 04/09/2009 05/14/2009 Overview: -Replete. [...] of this encounter (statuses as of 11/01/2022) [facility] Narrative* Problem [...] heparin, ASA, plavix 300, atorvastatin - plan [facility] tomorrow. Hypokalemia 04/09/2009 05/14/2009 Overview: -Replete. [...] of this encounter (statuses as of 11/08/2022) [facility] Narrative* Problem [...] heparin, ASA, plavix 300, atorvastatin - plan [facility] tomorrow. Hypokalemia 04/09/2009 05/14/2009 Overview: -Replete. [...] of this encounter (statuses as of 12/02/2022) [facility] Narrative* Problem [...] heparin, ASA, plavix 300, atorvastatin - plan [facility] tomorrow. Hypokalemia 04/09/2009 05/14/2009 Overview: -Replete. [...] of this encounter (statuses as of 12/19/2022) [facility] Narrative* Problem [...] heparin, ASA, plavix 300, atorvastatin - plan [facility] tomorrow. Hypokalemia 04/09/2009 05/14/2009 Overview: -Replete. [...] of this encounter (statuses as of 12/25/2022) [facility] Narrative* Problem [...] heparin, ASA, plavix 300, atorvastatin - plan [facility] tomorrow. Hypokalemia 04/09/2009 05/14/2009 Overview: -Replete. [...] of this encounter (statuses as of 01/19/2023) [facility] Narrative* Problem [...] heparin, ASA, plavix 300, atorvastatin - plan [facility] tomorrow. Hypokalemia 04/09/2009 05/14/2009 Overview: -Replete. [...] of this encounter (statuses as of 01/19/2023) [facility] Narrative* Problem [...] heparin, ASA, plavix 300, atorvastatin - plan [facility] tomorrow. Hypokalemia 04/09/2009 05/14/2009 Overview: -Replete. [...] of this encounter (statuses as of 03/24/2023) [facility] Narrative* Problem [...] heparin, ASA, plavix 300, atorvastatin - plan [facility] tomorrow. Hypokalemia 04/09/2009 05/14/2009 Overview: -Replete. [...] of this encounter (statuses as of 03/28/2023) [facility] Narrative* Problem [...] heparin, ASA, plavix 300, atorvastatin - plan [facility] tomorrow. Hypokalemia 04/09/2009 05/14/2009 Overview: -Replete. [...] of this encounter (statuses as of 04/03/2023) [facility] Narrative* Problem [...] heparin, ASA, plavix 300, atorvastatin - plan [facility] tomorrow. Hypokalemia 04/09/2009 05/14/2009 Overview: -Replete. [...] of this encounter (statuses as of 04/11/2023) [facility] Narrative* Problem [...] heparin, ASA, plavix 300, atorvastatin - plan [facility] tomorrow. Hypokalemia 04/09/2009 05/14/2009 Overview: -Replete. [...] of this encounter (statuses as of 05/02/2023) [facility] Narrative* Problem [...] heparin, ASA, plavix 300, atorvastatin - plan [facility] tomorrow. Hypokalemia 04/09/2009 05/14/2009 Overview: -Replete. [...] of this encounter (statuses as of 05/09/2023) [facility] Narrative* Problem [...] heparin, ASA, plavix 300, atorvastatin - plan [facility] tomorrow. Hypokalemia 04/09/2009 05/14/2009 Overview: -Replete. [...] of this encounter (statuses as of 05/15/2023) [facility] Narrative* Problem [...] heparin, ASA, plavix 300, atorvastatin - plan [facility] tomorrow. Hypokalemia 04/09/2009 05/14/2009 Overview: -Replete. [...] of this encounter (statuses as of 05/23/2023) [facility] Narrative* Problem [...] heparin, ASA, plavix 300, atorvastatin - plan [facility] tomorrow. Hypokalemia 04/09/2009 05/14/2009 Overview: -Replete. [...] of this encounter (statuses as of 05/23/2023) [facility] Narrative* Problem [...] heparin, ASA, plavix 300, atorvastatin - plan [facility] tomorrow. Hypokalemia 04/09/2009 05/14/2009 Overview: -Replete. [...] of this encounter (statuses as of 05/24/2023) [facility] Narrative* Problem [...] heparin, ASA, plavix 300, atorvastatin - plan [facility] tomorrow. Hypokalemia 04/09/2009 05/14/2009 Overview: -Replete. [...] of this encounter (statuses as of 05/25/2023) [facility] Narrative* Problem [...] heparin, ASA, plavix 300, atorvastatin - plan [facility] tomorrow. Hypokalemia 04/09/2009 05/14/2009 Overview: -Replete. [...] of this encounter (statuses as of 06/01/2023) [facility] Narrative* Problem [...] heparin, ASA, plavix 300, atorvastatin - plan [facility] tomorrow. Hypokalemia 04/09/2009 05/14/2009 Overview: -Replete. [...] of this encounter (statuses as of 06/01/2023) [facility] Narrative* Problem [...] heparin, ASA, plavix 300, atorvastatin - plan [facility] tomorrow. Hypokalemia 04/09/2009 05/14/2009 Overview: -Replete. [...] of this encounter (statuses as of 06/01/2023) [facility] Narrative* Problem [...] heparin, ASA, plavix 300, atorvastatin - plan [facility] tomorrow. Hypokalemia 04/09/2009 05/14/2009 Overview: -Replete. [...] of this encounter (statuses as of 06/09/2023) [facility] Narrative* Problem [...] heparin, ASA, plavix 300, atorvastatin - plan [facility] tomorrow. Hypokalemia 04/09/2009 05/14/2009 Overview: -Replete. [...] of this encounter (statuses as of 06/12/2023) [facility]* Diagnosis Onset Date Resolution Status Essential (primary) hypertension chronic History of pulmonary embolism chronic Hyperlipidemia chronic History of non-ST elevation myocardial infarction (NSTEMI) April, resolved [facility] Work Phone: Discharge summary Author Jairo Mitchell [facility] Note Date/Time August 09, 2024 2:56 pm [facility] Medical Records Department [address] [place] [address] Discharge Summary 08/09/24 1437 MR#: [id number] Acct: [id number] Name: LINDA PERALTA Rep #:[id number] : 1945 79 From: Jairo Mitchell DO PCP: Dr. 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 urinary tract [...] 81.0 H, Lymph % (Auto) 7.4 L, Hubbard % (Auto) 9.5, Eos % (Auto) 0.2, [...] to being on chronic steroids with your Ritchie'sdisease and you will be on a prednisone [...] Prolia 60 mg/mL syringe 60 mg subcut [id number] Qty: 1 1RF nitroglycerin 0.4 mg tablet, [...] or as directed Referrals / Follow Up: Amso Floyd MD [Primary Care Provider] - Within 2 Weeks Disposition Disposition (needs filled in before D/C Order can be placed): Home, Self Care Charges/Coding Visit Charges Inpatient E&M: 61723 Disch Hosp >30min 08/09/24 1456 <Electronically signed by Jairo Mitchell DO> Cosigner Signature (if applicable): CC: Dr. Jairo Mitchell DO; Dr. Amos Floyd MD~ Signed [facility] Work Phone: Evaluation note* Diagnosis Onset Date Resolution Status Chest pain acute Essential (primary) hypertension acute History of pulmonary embolism chronic Hyperlipidemia chronic [facility] Work Phone: Evaluation note* Diagnosis Adrenal hypofunction (HCC)- Primary Glucocorticoid deficiency Primary hypertension Unspecified essential hypertension ASHD (arteriosclerotic heart disease) Coronary atherosclerosis of unspecified type of vessel, poarch or graft Hip pain Pain in joint, pelvic region and thigh Need for COVID-19 vaccine [facility]* Diagnosis Onset Date Resolution Status Chest pain acute Essential (primary) hypertension chronic History of pulmonary embolism chronic Hyperlipidemia chronic Essential (primary) hypertension chronic History of pulmonary embolism chronic Hyperlipidemia [facility] Work Phone: Evaluation note* Diagnosis Onset Date Resolution Status Essential (primary) hypertension chronic History of pulmonary embolism chronic Hyperlipidemia [facility] Work Phone: Evaluation note* Diagnosis Atopic neurodermatitis- Primary Other atopic dermatitis and related conditions [facility]* Diagnosis Suspected COVID-19 virus infection- Primary [facility]* Diagnosis Stage 3b chronic kidney disease (HCC)- Primary [facility]* Diagnosis Onset Date Resolution Status ANGELA (acute kidney injury) ac louise Elevated troponin acute Hypotension acute Ritchie disease chronic Chronic kidney disease chron ic [facility] Work Phone: Evaluation note* Diagnosis Onset Date Resolution Status Ritchie disease acute ANGELA (acute kidney injury) ac louise Elevated troponin acute Hypotension acute Chronic kidney disease chron ic 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, 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 [facility] Work Phone: Evaluation note* Diagnosis Atopic neurodermatitis- Primary Other atopic dermatitis and related conditions [facility] this [facility]* Diagnosis Onset Date Resolution Status ANGELA (acute kidney injury) re solved Elevated troponin resolved Hypotension resolved [facility] Work Phone: Evaluation note* Diagnosis Pure hypercholesterolemia documented [facility] this encounter [facility]* Diagnosis Hypotension due to hypovolemia- Primary Elevated troponin Other abnormal blood chemistry Acute kidney injury (HCC) Acute kidney failure, unspecified Stage 3b chronic kidney disease (HCC) Hypercalcemia Anticoagulated on Coumadin Encounter for therapeutic drug monitoring Breast pain, left Mastodynia Encounter for screening mammogram for malignant neoplasm of breast Other screening mammogram [facility] this [facility]* Diagnosis Encounter for screening mammogram for malignant neoplasm of breast Other screening mammogram [facility] this [facility]* Diagnosis Medicare annual wellness visit, subsequent- Primary [facility] Hypertension, unspecified type Pure hypercholesterolemia Encounter for immunization Need for other specified prophylactic vaccination against single bacterial disease [facility]* Diagnosis Onset Date Resolution Status Ritchie disease acute ANGELA (acute kidney injury) re solved Elevated troponin resolved Hypotension resolved Moris disease acute Osteoporosis acute Essential (primary) hypertension chronic History of pulmonary embolism chronic Hyperlipidemia chronic History of non-ST elevation myocardial infarction (NSTEMI) April, resolved [facility] Work Phone: evaluation note* Diagnosis Onset Date Resolution Status Ritchie disease acute ANGELA (acute kidney injury) re solved Elevated troponin resolved Hypotension resolved Ritchie disease acute Osteoporosis acute Essential (primary) hypertension chronic History of pulmonary embolism chronic Hyperlipidemia chronic History of non-ST elevation myocardial infarction (NSTEMI) April, resolved Essential (primary) hypertension chronic History of pulmonary embolism chronic Hyperlipidemia chronic History of non-ST elevation myocardial infarction (NSTEMI) April, resolved [facility] Work Phone: evaluation note* Diagnosis Atopic neurodermatitis- Primary Other atopic dermatitis and related conditions [facility] this [facility]* Diagnosis Atopic neurodermatitis Other atopic dermatitis and related conditions documented in this encounter [facility] note* Diagnosis Onset Date Resolution Status Ritchie disease acute Osteoporosis acute Essential (primary) hypertension chronic History of pulmonary embolism chronic Hyperlipidemia chronic History of non-ST elevation myocardial infarction (NSTEMI) April, resolved Essential (primary) hypertension chronic History of pulmonary embolism chronic Hyperlipidemia chronic History of non-ST elevation myocardial infarction (NSTEMI) April, resolved [facility] Work Phone: evaluation noteNo assessment information available [facility] Work Phone: evaluation note* Diagnosis Primary hypertension- Primary Unspecified essential hypertension Pure hypercholesterolemia Stage 3b chronic kidney disease (HCC) ASHD (arteriosclerotic heart disease) Coronary atherosclerosis of unspecified type of vessel, poarch or graft Osteopenia, unspecified location [facility] Diagnosis Onset Date Resolution Status Aortic stenosis acute MVP (mitral valve prolapse) acute Chronic kidney disease, stage 3 chronic Essential (primary) hypertension chronic History of pulmonary embolism chronic Hyperlipidemia chronic History of non-ST elevation myocardial infarction (NSTEMI) April, resolved [facility] Work Phone: Evaluation note* Diagnosis Hip pain, unspecified laterality- Primary Stage 3b chronic kidney disease (HCC) Deep vein thrombosis (DVT) of lower extremity, unspecified chronicity, unspecified laterality, unspecified vein (HCC) Need for influenza vaccination Need for prophylactic vaccination and inoculation against influenza [facility]* Diagnosis Hip pain, unspecified laterality [M25.559]- Primary documented in this encounter [facility] note* Diagnosis Foot pain, right- Primary Pain in limb Closed fracture of right foot, initial encounter documented [facility]* Diagnosis Pure hypercholesterolemia [facility]* Diagnosis Closed displaced fracture of fifth metatarsal bone of right foot, initial encounter- Primary [facility]* Diagnosis Onset Date Resolution Status Ritchie disease chronic Osteoporosis chronic [facility] Work Phone: Evaluation note* Diagnosis Closed displaced fracture of fifth metatarsal bone of right foot, initial encounter [facility]* Diagnosis Closed displaced fracture of fifth metatarsal bone of right foot, initial encounter [facility]* Diagnosis Closed displaced fracture of fifth metatarsal bone of right foot, initial encounter [facility]* Diagnosis Medicare annual wellness [...] COVID-19 vaccine Hypercalcemia [facility] Diagnosis Onset Date Resolution Status Ritchie disease chronic Osteoporosis chronic Aortic stenosis acute Dizziness acute MVP (mitral valve prolapse) acute Chronic kidney disease, stage 3 chronic Essential (primary) hypertension chronic History of pulmonary embolism chronic Hyperlipidemia chronic History of non-ST elevation myocardial infarction (NSTEMI) April, resolved [facility] Work Phone: Evaluation note* Diagnosis Gait abnormality- Primary Abnormality of gait Hip pain, unspecified laterality Closed displaced fracture of fifth metatarsal bone of right foot with delayed healing, [facility] Gait abnormality- Primary Abnormality of gait Hip pain, unspecified laterality Closed displaced fracture of fifth metatarsal bone of right foot with delayed healing, subsequent [facility] Diagnosis Onset Date Resolution Status Aortic stenosis acute Dizziness acute MVP (mitral valve prolapse) acute Chronic kidney disease, stage 3 chronic Essential (primary) hypertension chronic History of pulmonary embolism chronic Hyperlipidemia chronic History of non-ST elevation myocardial infarction (NSTEMI) April, [place] Work Phone: Evaluation note* Diagnosis Gait abnormality- Primary Abnormality of gait Hip pain, unspecified laterality Closed displaced fracture of fifth metatarsal bone of right foot with delayed healing, subsequent [facility] Hypercalcemia- Primary [facility] Diagnosis Hypercalcemia- Primary Fatigue, unspecified type Urinary frequency Myalgias Confusion Unspecified psychosis Weakness Other malaise and fatigue [facility] Diagnosis Hypercalcemia- Primary Moris's disease (CMS/HCC) Glucocorticoid deficiency Anemia in chronic kidney disease Chronic kidney disease Chronic kidney disease, unspecified Generalized muscle weakness Muscle weakness (generalized) Hypertensive kidney disease with stage 3b chronic kidney disease (CMS/HCC) Urinary tract infection, site not specified documented in this encounter [facility] Work Phone: Evaluation note* Diagnosis Physical deconditioning- Primary Debility, unspecified Muscle weakness Muscle weakness (generalized) Gait abnormality Abnormality of gait [facility] Diagnosis Other specified hypotension- Primary Moris's disease (HCC) Glucocorticoid deficiency Hypercalcemia [facility] Diagnosis Gait abnormality- Primary Abnormality of gait Physical deconditioning Debility, unspecified Weakness Other malaise and fatigue [facility] Diagnosis Physical deconditioning- Primary Debility, unspecified Gait abnormality Abnormality of gait Muscle weakness Muscle weakness (generalized) [facility] Diagnosis Physical deconditioning- Primary Debility, unspecified Gait abnormality Abnormality of gait Weakness Other malaise and fatigue [facility] Diagnosis Physical deconditioning- Primary Debility, unspecified Gait abnormality Abnormality of gait Weakness Other malaise and fatigue [facility] Diagnosis Hypercalcemia- Primary Age-related osteoporosis with current pathological fracture with routine healing Aftercare for healing pathologic fracture of other bone Hypokalemia Hypopotassemia Adrenal hypofunction (HCC) Glucocorticoid deficiency NSTEMI (non-ST elevated myocardial infarction) (HCC) Acute myocardial infarction, subendocardial infarction, episode of care unspecified ASHD (arteriosclerotic heart disease) Coronary atherosclerosis of unspecified type of vessel, poarch or graft Nonrheumatic aortic valve stenosis Aortic valve disorders [facility] Diagnosis Physical deconditioning- Primary Debility, unspecified Gait abnormality Abnormality of gait Weakness Other malaise and fatigue [facility] Diagnosis Physical deconditioning- Primary Debility, unspecified Gait abnormality Abnormality of gait Weakness Other malaise and fatigue [facility] Diagnosis Primary hypertension- Primary Unspecified essential hypertension Hypercalcemia Adrenal hypofunction (HCC) Glucocorticoid deficiency Nonrheumatic aortic valve stenosis Aortic valve disorders [facility] Diagnosis Abnormal finding of diagnostic imaging- Primary Other nonspecific (abnormal) findings on radiological and other examinations of body structure [facility] Diagnosis Physical deconditioning- Primary Debility, unspecified Gait abnormality Abnormality of gait Weakness Other malaise and fatigue [facility] Diagnosis Physical deconditioning- Primary Debility, unspecified Gait abnormality Abnormality of gait Weakness Other malaise and fatigue [facility] Diagnosis Physical deconditioning- Primary Debility, unspecified Gait abnormality Abnormality of gait Weakness Other malaise and fatigue [facility] Diagnosis Foot pain, right Pain in limb [facility] Diagnosis Hip pain, unspecified laterality [facility] Diagnosis Age-related osteoporosis with current pathological fracture with routine healing- Primary Aftercare for healing pathologic fracture of other bone Hypercalcemia Adrenal hypofunction (HCC) Glucocorticoid deficiency [facility] Diagnosis Pure hypercholesterolemia documented in [...] Coronary atherosclerosis of unspecified type of vessel, poarch or graft Primary hypertension Unspecified essential hypertension Nonrheumatic aortic valve stenosis Aortic valve disorders Subconjunctival hemorrhage of left eye Chronic nonallergic rhinitis Chronic rhinitis Stage 3b chronic kidney disease (HCC) Adrenal insufficiency (HCC) Glucocorticoid deficiency Encounter for immunization Need for other specified prophylactic vaccination against single bacterial disease documented in this encounter [facility] note* Diagnosis Acute deep vein thrombosis (DVT) of proximal vein of both lower extremities (HCC)- Primary Other specified hypotension Adrenal insufficiency (HCC) Glucocorticoid deficiency Nonrheumatic aortic valve stenosis Aortic valve disorders Acute cystitis without hematuria Acute cystitis documented in this encounter [facility] note* Diagnosis Acute cystitis without hematuria- Primary Acute cystitis documented in this encounter [facility] note* Diagnosis Acute deep vein thrombosis (DVT) [...] study, right side. documented in this encounter [facility] note* Diagnosis Urinary tract infection without hematuria, site unspecified- Primary documented in this encounter [facility] note* Diagnosis Severe aortic stenosis- Primary Aortic valve disorders documented in this encounter [facility] note* Diagnosis Nonrheumatic aortic valve stenosis- Primary documented in this encounter [facility] note* Diagnosis Recurrent UTI- Primary Urinary tract infection, site not specified documented in this encounter [facility] note* Diagnosis Aortic valve stenosis, etiology of cardiac valve disease unspecified- Primary Deep vein thrombosis (DVT) of proximal vein of both lower extremities, unspecified chronicity (HCC) Acute systolic heart failure (HCC) Acute systolic heart failure Ritchie's disease (HCC) Glucocorticoid deficiency Renal insufficiency Unspecified disorder of kidney and ureter Recurrent UTI Urinary tract infection, site not specified documented in this encounter [facility] note* Diagnosis Nonrheumatic aortic valve stenosis [facility] Diagnosis Recurrent UTI- Primary Urinary tract infection, site not specified History of kidney stones Personal history of urinary calculi documented in this encounter [facility] note* Diagnosis Aortic valve stenosis, etiology of cardiac valve disease unspecified- Primary Deep vein thrombosis (DVT) of proximal vein of both lower extremities, unspecified chronicity (HCC) Acute systolic heart failure (HCC) Acute systolic heart failure Ritchie's disease (HCC) Glucocorticoid deficiency Renal insufficiency Unspecified disorder of kidney and ureter Recurrent UTI Urinary tract infection, site not specified [facility] Diagnosis Renal insufficiency- Primary Unspecified disorder of kidney and ureter [facility] Diagnosis Renal insufficiency- Primary Unspecified disorder of kidney and ureter [facility] Diagnosis Renal insufficiency- Primary Unspecified disorder of kidney and ureter [facility] Diagnosis Renal insufficiency- Primary Unspecified disorder of kidney and ureter [facility] Diagnosis Severe aortic stenosis- Primary Aortic valve disorders Severe aortic stenosis- Primary Aortic valve disorders Stage 3 chronic kidney disease, unspecified whether stage 3a or 3b CKD (HCC) Acute deep vein thrombosis (DVT) of right lower extremity, unspecified vein (HCC) Acute systolic heart failure (HCC) Acute systolic heart failure Ritchie's disease (HCC) Glucocorticoid deficiency [facility] Diagnosis Severe aortic stenosis- Primary Aortic valve disorders Severe aortic stenosis- Primary Aortic valve disorders Severe aortic stenosis Aortic valve disorders [facility] Diagnosis Nonrheumatic aortic valve stenosis- Primary [facility] Diagnosis Severe aortic stenosis- Primary Aortic valve disorders Severe aortic stenosis Aortic valve disorders Aortic valve stenosis, etiology of cardiac valve disease unspecified Syncope and collapse Severe aortic stenosis Aortic valve disorders [facility] Diagnosis Severe aortic stenosis- Primary Aortic valve disorders [facility] Diagnosis S/p TAVR (transcatheter aortic valve replacement), bioprosthetic- Primary Pure hypercholesterolemia Encounter for immunization Need for other specified prophylactic vaccination against single bacterial disease Stage 3b chronic kidney disease (HCC) Hypertensive kidney disease with stage 3b chronic kidney disease (HCC) Nonrheumatic aortic valve stenosis Aortic valve disorders [facility] Diagnosis Severe aortic stenosis- Primary Aortic valve disorders Stage 3b chronic kidney disease (HCC) Ritchie's disease (HCC) Glucocorticoid deficiency Chronic systolic heart failure (HCC) Chronic systolic heart failure Deep vein thrombosis (DVT) of proximal vein of both lower extremities, unspecified chronicity (HCC) documented [facility] Diagnosis Severe aortic stenosis- Primary Aortic valve disorders [facility] Diagnosis Severe aortic stenosis- Primary Aortic valve disorders [facility]* Diagnosis Chronic systolic heart failure (HCC)- Primary Chronic systolic heart failure S/P TAVR (transcatheter aortic valve replacement) Deep vein thrombosis (DVT) of proximal vein of both lower extremities, unspecified chronicity (HCC) Stage 3b chronic kidney disease (CMS/HCC) Moris's disease (HCC) Glucocorticoid deficiency [facility]* Diagnosis Severe aortic stenosis Aortic valve disorders [facility]* Diagnosis Chronic systolic heart failure (HCC)- Primary Chronic systolic heart failure S/P TAVR (transcatheter aortic valve replacement) Deep vein thrombosis (DVT) of proximal vein of both lower extremities, unspecified chronicity (HCC) Stage 3b chronic kidney disease (CMS/HCC) Moris's disease (HCC) Glucocorticoid deficiency documented in this encounter [facility] Discharge instructionsAmbulatory Orders* Phase II, Outpatient Cardiac Rehab Location: [facility] Work Phone: Progress note Author Jordan Marte [facility] Note Date/Time November 14, 2024 9:32am [facility] [address] [place] [address] OFFICE VISIT Date of Service: 11/14/24 MR#: [id number] Acct: [id number] Name: LINDA PERALTA Rep #: [id number] : 1945 Provider: Dr. 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 Accompanied by: Daughter Is patient in pain?: No Allergies ciprofloxacin (From Cipro) Allergy (Verified 11/14/24 09:05) Rash Penicillins Allergy (Verified 11/14/24 09:05) Rash Medications ?Medication ?Instructions ?Recorded ?Confirmed ?Type acetaminophen 500 mg tablet 1,000 mg (2 x 500 mg) PO Q 6H PRN 04/08/20 11/14/24 Rx Pain Score 1-10 denosumab 60 mg/mL subcutaneous 60 mg subcut [id number] #1 mL 11/24/22 11/14/24 Rx syringe (Prolia) [...] (BMI 25.0-29.9) Aortic stenosis Aortic stenosis, severe Ritchie's disease MVP (mitral valve prolapse) Aortic stenosis [...] Other History of DVT (deep vein thrombosis) 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 Echocardiogram 06/12/2023?[facility]: Left ventricle is normal in size. [...] does follow with nephrology for this. 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 Amos Floyd MD ~ [place] [employer] Work Phone: Reason for referral (narrative)* Diagnostic Procedure Only (Routine) - Authorized Specialty Diagnoses / Procedures Referred By Contac t Referred To Contact BR IMAGING Diagnoses Encounter for screening mammogram for malignant neoplasm of breast Procedures TAE SCREENING SCREENING MAMMOGRAPHY BI 2-VIEW BREAST INC CAD Amos Floyd MD [address] [place] [address] [facility] [address] [place] [address] Referral ID Status Reason Start Date Expiration Date Visits Requested Visits Authorized [id number] Authorized Auto-Generat ed Referral 2 01/05/2023 [address] [facility] for referral (narrative)* Diagnostic Procedure Only (Routine) - Closed Specialty Diagnoses / Procedures Referred By Contac t Referred To Contact BR IMAGING Diagnoses Encounter for screening mammogram for malignant neoplasm of breast Procedures TAE SCREENING SCREENING MAMMOGRAPHY BI 2-VIEW BREAST INC CAD Amos Floyd MD [address] [place] [address] [facility] [address] [place] [address] Referral ID Status Reason Start Date Expiration Date V isits Requested Visits Authorized [id number] Closed Auto-Generate d Referral 12/06/2021 01/05/2023 [address] [facility] for referral (narrative)* Diagnostic Procedure Only (Routine) - Pending Review Specialty Diagnoses / Procedures Referred By Contac t Referred To Contact XR IMAGING Diagnoses Closed displaced fracture of fifth metatarsal bone of right foot, initial encounter Procedures XR FOOT GENERAL 3V AP/LAT/OBL RIGHT RADEX FOOT COMPLETE MINIMUM 3 VIEWS Omar Cruz [address] [place] [address] [place] [address] Referral ID Status Reason Start Date Expiration Date Visits Requested Visits Authorized [id number] Pending Review Auto-Generat ed Referral 3 01/18/2024 [address] [facility] for referral (narrative)* Diagnostic Procedure Only (Routine) - Closed Specialty Diagnoses / Procedures Referred By Contac t Referred To Contact XR IMAGING Diagnoses Closed displaced fracture of fifth metatarsal bone of right foot, initial encounter Procedures XR FOOT GENERAL 3V AP/LAT/OBL RIGHT RADEX FOOT COMPLETE MINIMUM 3 VIEWS Omar Cruz [address] [place] [address] [place] [address] Referral ID Status Reason Start Date Expiration Date V isits Requested Visits Authorized [id number] Closed Auto-Generate d Referral 12/17/2022 12/17/2023 [address] [facility] for referral (narrative)* Diagnostic Procedure Only (Routine) - Closed Specialty Diagnoses / Procedures Referred By Contac t Referred To Contact XR IMAGING Diagnoses Closed displaced fracture of fifth metatarsal bone of right foot, initial encounter Procedures XR FOOT GENERAL 3V AP/LAT/OBL RIGHT RADEX FOOT COMPLETE MINIMUM 3 VIEWS Omar Cruz [address] [place] [address] [place] [address] Referral ID Status Reason Start Date Expiration Date V isits Requested Visits Authorized [id number] Closed Auto-Generate d Referral 11/17/2022 12/17/2023 [address] [facility] for referral (narrative)* Diagnostic Procedure Only (Urgent) - Closed Specialty Diagnoses / Procedures Referred By Contac t Referred To Contact XR IMAGING Diagnoses Foot pain, right Procedures XR FOOT GENERAL 3V AP/LAT/OBL RIGHT RADEX FOOT COMPLETE MINIMUM 3 VIEWS Jacinda Enriquez, PILL PACKER [address] [place] [address] [place] [address] Referral ID Status Reason Start Date Expiration Date V isits Requested Visits Authorized [id number] Closed Auto-Generate d Referral 11/08/2022 12/08/2023 [address] [facility] for referral (narrative)* Diagnostic Procedure Only (Routine) - Closed Specialty Diagnoses / Procedures Referred By Contac t Referred To Contact XR IMAGING Diagnoses Hip pain, unspecified laterality Procedures XR HIP BILATERAL 5V PEL/AP/LAT EACH HIP RADEX HIPS BILATERAL WITH PELVIS MINIMUM 5 VIEWS Amos Floyd MD [address] [place] [address] [place] [address] Referral ID Status Reason Start Date Expiration Date V isits Requested Visits Authorized [id number] Closed Auto-Generate d Referral 10/26/2022 11/25/2023 [address] [facility] for referral (narrative)* Diagnostic Procedure Only (Routine) - New Request Specialty Diagnoses / Procedures Referred By Contac t Referred To Contact XR IMAGING Diagnoses Age-related osteoporosis with current pathological fracture with routine healing Procedures DXA-AXIAL SKELETON DXA BONE DENSITY STUDY / SITES AXIAL Amos Leonard MD [address] [place] [address] X[facility] Imaging [id number] Referral ID Status Reason Start Date Expiration Date Visits Requested Visits Authorized [id number] New Request Auto-Generat ed Referral 12/29/2024 [address] [facility] for referral (narrative)No reason for referral [facility] Work Phone: Reason for visit Narrative* Diagnostic Procedure Only (Routine) - Closed Specialty Diagnoses / Procedures Referred By Contac t Referred To Contact BR IMAGING Diagnoses Encounter for screening mammogram for malignant neoplasm of breast Procedures ATE SCREENING SCREENING MAMMOGRAPHY BI 2-VIEW BREAST INC CAD Amos Floyd MD [address] [place] [address] [facility] Imaging [address] [place] [address] Referral ID Status Reason Start Date Expiration Date V isits Requested Visits Authorized [id number] Closed Auto-Generate d Referral 12/06/2021 01/05/2023 [address] [facility] for visit Narrative* Diagnostic Procedure Only (Routine) - Closed Specialty Diagnoses / Procedures Referred By Contac t Referred To Contact XR IMAGING Diagnoses Closed displaced fracture of fifth metatarsal bone of right foot, initial encounter Procedures XR FOOT GENERAL 3V AP/LAT/OBL RIGHT RADEX FOOT COMPLETE MINIMUM 3 VIEWS TestOmar suazo [address] [place] [address] [place] [address] Referral ID Status Reason Start Date Expiration Date V isits Requested Visits Authorized [id number] Closed Auto-Generate d Referral 12/17/2022 12/17/2023 [address] [facility] for visit Narrative* Diagnostic Procedure Only (Routine) - Closed Specialty Diagnoses / Procedures Referred By Contac t Referred To Contact XR IMAGING Diagnoses Closed displaced fracture of fifth metatarsal bone of right foot, initial encounter Procedures XR FOOT GENERAL 3V AP/LAT/OBL RIGHT RADEX FOOT COMPLETE MINIMUM 3 VIEWS Omar Cruz [address] [place] [address] [place] [address] Referral ID Status Reason Start Date Expiration Date V isits Requested Visits Authorized [id number] Closed Auto-Generate d Referral 11/17/2022 12/17/2023 [address] [facility] for visit Narrative* Diagnostic Procedure Only (Routine) - Closed Specialty Diagnoses / Procedures Referred By Contac t Referred To Contact XR IMAGING Diagnoses Closed displaced fracture of fifth metatarsal bone of right foot, initial encounter Procedures XR FOOT GENERAL 3V AP/LAT/OBL RIGHT RADEX FOOT COMPLETE MINIMUM 3 VIEWS Omar Cruz [address] [place] [address] [place] [address] Referral ID Status Reason Start Date Expiration Date V isits Requested Visits Authorized [id number] Closed Auto-Generate d Referral 12/19/2022 01/18/2024 [address] [facility] for visit Narrative* Diagnostic Procedure Only (Urgent) - Closed Specialty Diagnoses / Procedures Referred By Contac t Referred To Contact XR IMAGING Diagnoses Foot pain, right Procedures XR FOOT GENERAL 3V AP/LAT/OBL RIGHT RADEX FOOT COMPLETE MINIMUM 3 VIEWS Jacinda Enriquez, DISEASE EDUCATION SPECIALIST.PILL PACKER [address] [place] [address] [place] [address] Referral ID Status Reason Start Date Expiration Date V isits Requested Visits Authorized [id number] Closed Auto-Generate d Referral 11/08/2022 12/08/2023 [address] [facility] for visit Narrative* Diagnostic Procedure Only (Routine) - Closed Specialty Diagnoses / Procedures Referred By Contac t Referred To Contact XR IMAGING Diagnoses Hip pain, unspecified laterality Procedures XR HIP BILATERAL 5V PEL/AP/LAT EACH HIP RADEX HIPS BILATERAL WITH PELVIS MINIMUM 5 VIEWS Amos Floyd MD [address] [place] [address] [place] [address] Referral ID Status Reason Start Date Expiration Date V isits Requested Visits Authorized [id number] Closed Auto-Generate d Referral 10/26/2022 11/25/2023 [address] [facility] for visit Narrative* Imaging (Routine) - Closed Specialty Diagnoses / Procedures Referred By Contac t Referred To Contact Radiology Diagnoses Nonrheumatic aortic valve stenosis Procedures CTA Angiogram TAVR Dylon Gupta, DISEASE EDUCATION SPECIALIST - [address] [address] Phone: tel: fax: Referral ID Status Reason Start Date Expiration Date Visits Re quested Visits Authorized [id number] Closed 09/03/2024 09/03/[address] [facility] for visit Narrative* Auth/Cert (Routine) Specialty Diagnoses / Procedures Referred By Contac t Referred To Contact Diagnoses Severe aortic stenosis Procedures TRANSCATHETER AORTIC VALVE REPLACEMENT, TRANSTHORACIC ECHOCARDIOGRAM TRANSCATHETER AORTIC VALVE REPLACEMENT, TRANSTHORACIC ECHOCARDIOGRAM Memo Canas MD [address] [address] Phone: tel: fax: [facility] [address] [place] [address] Phone: tel: Referral ID Status Reason Start Date Expiration Date Visits Re quested Visits Authorized [address] [facility] for visit Narrative* Imaging (Routine) - Closed Specialty Diagnoses / Procedures Referred By Contac t Referred To Contact Cardiology Diagnoses Severe aortic stenosis Procedures Transthoracic echocardiogram (TTE) complete with contrast, bubble, strain, and 3D PRN GA ECHO TTHRC R-T 2D W/WOM-MODE COMPL SPEC&COLR D GA TTE W OR WO FOL WCON,DOPPLER Dylon Gupta, DISEASE EDUCATION SPECIALIST - PILL PACKER [address] [place] [address] Phone: tel: fax: Referral ID Status Reason Start Date Expiration Date Visits Re quested Visits Authorized [id number] Closed 10/24/2024 10/24/2025 1 1 [facility] Summary Purpose Family History No Family History Records Found Relationship Condition Age at Onset Recorded Date/T rupa father Cerebrovascular accident (CVA) Unknown mother Myocardial infarction 87 Relationship Condition Age at Onset Recorded Date/T rupa Not Specified History of deep venous thrombosis Unknow n termite treater current us e of anticoagulant therapy Unknown father Cerebrovascular accident (CVA) Unknown mother Myocardial infarction 87 Advance Directives No Advanced Directives Records FoundDocuments on File Type Date Recorded Patient Cost Estimating Clerk Expl anation Advance Directive(s) 06/15/2023 1:23 PM Date Activated Date Inactivated Comments 06/09/2023 9:18 AM 06/13/2023 5:43 PM Question Answer Comments DNR Order Discussed With: Patient Advance Directive Response Recorded Date/ Time Advance Directives Yes March 24, 2016 12:54pm Living Will Yes April 23, 2020 1:27am Power of Binder Caser Yes April 23 1:27am Documents on File Type Date Recorded Patient Cost Estimating Clerk Expl anation Advance Directive(s) Advance Directive(s) 03/25/2016 3:29 PM Advance Directive(s) 03/22/2016 8:29 AM Advance Directive(s) 09/14/2015 10:37 AM Advance Directive Response Recorded Date/ Time Name of Medical Power of Binder Caser Jacey Bravo November 17, 2021 1:25am Advance Directives Yes March 24, 2016 12:54pm Living Will Yes November 17, 2021 1:25am Power of Binder Caser Yes October 1:25am Advance Directive Response Recorded Date/ Time Name of Medical Power of Binder Caser Jacey Bravo November 17, 2021 12:25am Advance Directives Yes March 24, 2016 11:54am Living Will Yes November 17, 2021 12:25am Power of Binder Caser Yes October 12:25am Advance Directive Response Recorded Date/ Time Advance Directives Yes March 24, 2016 11:54am Living Will Yes November 17, 2021 12:25am Power of Binder Caser Yes October 12:25am Advance Directive Response Recorded Date/ Time Advance Directives Yes March 24, 2016 12:54pm Living Will Yes November 17, 2021 1:25am Power of Binder Caser Yes October 1:25am Advance Directive Response Recorded Date/ Time Advance Directives Yes March 24, 2016 12:54pm Living Will No May 15, 2023 3:08pm Power of Binder Caser No May 14 3:08pm Advance Directive Response Recorded Date/ Time Name of Medical Power of Binder Caser souleymane daughter May 23, 2023 8:15pm Advance Directives Yes March 24, 2016 12:54pm Living Will Yes May 23, 2023 8:15pm Power of Binder Caser Yes May 22 8:15pm Documents on File Type Date Recorded Patient Cost Estimating Clerk Expl anation Healthcare Power of Atty 05/12/2020 Living Will 05/12/2020 Latest Code Status on File Code Status Date Activated Date Inactivated Comments DNR and No Intubation and No ICU 05/24/2023 2:11 AM Question Answer Comments Plan of Care: Code Status Discussi on Completed Decision Maker: Patient Date Activated Date Inactivated Comments 06/09/2023 9:18 AM Documents on File Type Date Recorded Patient Cost Estimating Clerk Expl anation Advance Directive(s) 06/15/2023 1:23 PM Date Activated Date Inactivated Comments 06/09/2023 9:18 AM 06/13/2023 5:43 PM Question Answer Comments DNR Order Discussed With: Patient Advance Directive Response Recorded Date/ Time Living Will Yes November 17, 2021 1:25am Do you have a Healthcare Power of Binder Caser? Yes November 17, 2021 1:25am Living Will Yes March 23 12:17am Do you have a Healthcare Power of Binder Caser? Yes March 23, 2024 12:17am Living Will Yes January 19 11:49pm Do you have a Healthcare Power of Binder Caser? Yes January 20, 2024 11:49pm Advance Directives Yes March 24, 2016 12:54pm Advance Directive Response Recorded Date/ Time Living Will Yes November 17, 2021 1:25am Do you have a Healthcare Power of Binder Caser? Yes November 17, 2021 1:25am Living Will Yes March 23 12:17am Do you have a Healthcare Power of Binder Caser? Yes March 23, 2024 12:17am Living Will Yes May 23, 2023 8:15pm Do you have a Healthcare Power of Binder Caser? Yes May 23, 2023 8:15pm Living Will Yes January 19 11:49pm Do you have a Healthcare Power of Binder Caser? Yes January 20, 2024 11:49pm Living Will Yes May 20, 2024 9:59pm Do you have a Healthcare Power of Binder Caser? Yes May 20, 2024 9:59pm Advance Directives Yes March 24, 2016 12:54pm Advance Directive Response Recorded Date/ Time Living Will Yes November 17, 2021 1:25am Do you have a Healthcare Power of Binder Caser? Yes November 17, 2021 1:25am Living Will Yes March 23 12:17am Do you have a Healthcare Power of Binder Caser? Yes March 23, 2024 12:17am Living Will Yes June 19, 2024 8:48pm Do you have a Healthcare Power of Binder Caser? Yes June 19, 2024 8:48pm Living Will Yes May 23, 2023 8:15pm Do you have a Healthcare Power of Binder Caser? Yes May 23, 2023 8:15pm Living Will Yes January 19 11:49pm Do you have a Healthcare Power of Binder Caser? Yes January 20, 2024 11:49pm Living Will Yes May 20, 2024 9:59pm Do you have a Healthcare Power of Binder Caser? Yes May 20, 2024 9:59pm Advance Directives Yes March 24, 2016 12:54pm Advance Directive Response Recorded Date/ Time Living Will Yes November 17, 2021 1:25am Do you have a Healthcare Power of Binder Caser? Yes November 17, 2021 1:25am Living Will Yes March 23 12:17am Do you have a Healthcare Power of Binder Caser? Yes March 23, 2024 12:17am Living Will Yes June 19, 2024 8:48pm Do you have a Healthcare Power of Binder Caser? Yes June 19, 2024 8:48pm Living Will Yes May 23, 2023 8:15pm Do you have a Healthcare Power of Binder Caser? Yes May 23, 2023 8:15pm Living Will Yes May 20, 2024 9:59pm Do you have a Healthcare Power of Binder Caser? Yes May 20, 2024 9:59pm Advance Directives Yes March 24, 2016 12:54pm Advance Directive Response Recorded Date/ Time Living Will Yes November 17, 2021 1:25am Do you have a Healthcare Pow er of Binder Caser? Yes November 17, 2021 1:25am Living Will Yes March 23 12:17am Do you have a Healthcare Pow er of Binder Caser? Yes March 23, 2024 12:17am Living Will Yes June 19, 2024 8:48pm Do you have a Healthcare Pow er of Binder Caser? Yes June 19, 2024 8:48pm Living Will Yes May 23, 2023 8:15pm Do you have a Healthcare Pow er of Binder Caser? Yes May 23, 2023 8:15pm Living Will Yes May 20, 2024 9:59pm Do you have a Healthcare Pow er of Binder Caser? Yes May 20, 2024 9:59pm Advance Directives on File Yes August 05, 2024 7:22am Living Will Yes August 05, 2024 7:22am Do you have a Healthcare Pow er of Binder Caser? Yes August 05, 2024 7:22am Name of Medical Power of Binder Caser daughter bisi simpson August 05, 2024 7:22am Advance Directives Yes August 05 7:22am Advance Directive Response Recorded Date/ Time Living Will Yes November 17, 2021 1:25am Do you have a Healthcare Pow er of Binder Caser? Yes November 17, 2021 1:25am Living Will Yes March 23 12:17am Do you have a Healthcare Pow er of Binder Caser? Yes March 23, 2024 12:17am Living Will Yes June 19, 2024 8:48pm Do you have a Healthcare Pow er of Binder Caser? Yes June 19, 2024 8:48pm Living Will Yes May 23, 2023 8:15pm Do you have a Healthcare Pow er of Binder Caser? Yes May 23, 2023 8:15pm Living Will Yes May 20, 2024 9:59pm Do you have a Healthcare Pow er of Binder Caser? Yes May 20, 2024 9:59pm Advance Directives on File Yes August 05, 2024 7:22am Living Will Yes August 05, 2024 7:22am Do you have a Healthcare Pow er of Binder Caser? Yes August 05, 2024 7:22am Name of Medical Power of Binder Caser daughter bisi simpson August 05, 2024 7:22am Advance Directives Yes August 05 7:22am Do you have a Healthcare Pow er of Binder Caser? Yes August 07, 2024 4:00pm Advance Directive Response Recorded Date/ Time Living Will Yes November 17, 2021 1:25am Do you have a Healthcare Pow er of Binder Caser? Yes November 17, 2021 1:25am Living Will Yes March 23 12:17am Do you have a Healthcare Pow er of Binder Caser? Yes March 23, 2024 12:17am Living Will Yes June 19, 2024 8:48pm Do you have a Healthcare Pow er of Binder Caser? Yes June 19, 2024 8:48pm Living Will Yes May 23, 2023 8:15pm Do you have a Healthcare Pow er of Binder Caser? Yes May 23, 2023 8:15pm Living Will Yes May 20, 2024 9:59pm Do you have a Healthcare Pow er of Binder Caser? Yes May 20, 2024 9:59pm Advance Directives on File Yes August 05, 2024 7:22am Living Will Yes August 05, 2024 7:22am Do you have a Healthcare Pow er of Binder Caser? Yes August 05, 2024 7:22am Name of Medical Power of Binder Caser daughter bisi simpson August 05, 2024 7:22am Advance Directives Yes August 05 7:22am Do you have a Healthcare Pow er of Binder Caser? Yes August 07, 2024 9:52pm Name of Medical Power of Binder Caser souleymane August 07, 2024 9:52pm Advance Directive Response Recorded Date/ Time Living Will Yes June 19, 2024 8:48pm Do you have a Healthcare Power of Binder Caser? Yes June 19, 2024 8:48pm Living Will Yes May 23, 2023 8:15pm Do you have a Healthcare Power of Binder Caser? Yes May 23, 2023 8:15pm Living Will Yes May 20, 2024 9:59pm Do you have a Healthcare Power of Binder Caser? Yes May 20, 2024 9:59pm Advance Directives on File Yes August 05, 2024 7:22am Living Will Yes August 05, 2024 7:22am Do you have a Healthcare Power of Binder Caser? Yes August 05, 2024 7:22am Name of Medical Power of Binder Caser daughter bisi simpson August 05, 2024 7:22am Advance Directives Yes August 05 7:22am Do you have a Healthcare Power of Binder Caser? Yes August 07, 2024 9:52pm Name of Medical Power of Binder Caser souleymane August 07, 2024 9:52pm Advance Directive Response Recorded Date/ Time Living Will Yes June 19, 2024 8:48pm Do you have a Healthcare Power of Binder Caser? Yes June 19, 2024 8:48pm Advance Directives on File Yes August 05, 2024 7:22am Living Will Yes August 05, 2024 7:22am Do you have a Healthcare Power of Binder Caser? Yes August 05, 2024 7:22am Name of Medical Power of Binder Caser daughter bisi simpson August 05, 2024 7:22am Advance Directives Yes August 05 7:22am Do you have a Healthcare Power of Binder Caser? Yes August 07, 2024 9:52pm Name of Medical Power of Binder Caser souleymane August 07, 2024 9:52pm Advance Directive Response Recorded Date/ Time Advance Directives on File Yes August 05, 2024 7:22am Living Will Yes August 05, 2024 7:22am Do you have a Healthcare Power of Binder Caser? Yes August 05, 2024 7:22am Name of Medical Power of Binder Caser daughter bisi simpson August 05, 2024 7:22am Advance Directives Yes August 05 7:22am Do you have a Healthcare Power of Binder Caser? Yes August 07, 2024 9:52pm Name of Medical Power of Binder Caser souleymane August 07, 2024 9:52pm Date Activated Date Inactivated Comments 10/23/2024 5:41 AM Date Activated Date Inactivated Comments 10/23/2024 5:41 AM 10/24/2024 3:36 PM Date Activated Date Inactivated Comments 10/23/2024 5:41 AM 10/24/2024 3:36 PM Advance Directive Response Recorded Date/ Time Advance Directives Yes August 05 7:22am Hospital Course Note Send Summary: Discharge Summ christ Providers: Provider RoleProvider Name Amos Mnoge AttendingTaalessio, Baldo Ballard, Alvin Encarnacion, Di ConsultingWenceslao, Leigh ConsultingMario, Vicky ConsultingMarco A, Amos Rosales Note Recipients: Amos Floyd MD - [id number] [] Discharge: Summary: Admission Date: .01-May-2020 20:47:00 [...] HYPOTENSION, ANGELA HYPOTENSION, ANGELA Reason for Visit Ritchie disease ANGELA (acute kidney injury) Elevated troponin Hypotension Chronic kidney disease Chronic kidney disease, stage 3 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 Chief Complaint S/O [...] ANGELA (acute kidney injury) Elevated troponin Hypotension Ritchie disease Osteoporosis Essential (primary) hypertension History of pulmonary embolism Hyperlipidemia History of non-ST elevation myocardial infarction (NSTEMI) Chief Complaint S/O INR HYPOTENSION, ANGELA HYPOTENSION, ANGELA HYPOTENSION, ANGELA HYPOTENSION, ANGELA PROLIA/60MG 1 Y FU/Osteo S/p hospital E ORDER 6 wk fu EORDERS-3 ORDERING DRS E ORDER Reason for Visit Ritchie disease ANEGLA (acute kidney injury) Elevated troponin Hypotension Moris [...] Y FU PROLIA/60MG EORDER/INR Reason for Visit Ritchie disease Osteoporosis Chief Complaint EORDER/INR EORDER/INR 1 Y FU PROLIA/60MG EORDER/INR EORDER/INR Reason for Visit Moris disease Osteoporosis Chief Complaint EORDER/INR 1 Y FU PROLIA/60MG EORDER/INR EORDER/INR EORDER/INR Reason for Visit Ritchie disease Osteoporosis Chief Complaint 1 Y FU PROLIA/60MG EORDER/INR EORDER/INR EORDER/INR EORDER/INR 6 M FU Reason for Visit Ritchie disease Osteoporosis Aortic stenosis Dizziness MVP (mitral [...] Aortic stenosis April 29, 2024 10: 53am termite treater (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) use of anticoagulant s April 29, [...] Aortic stenosis April 29, 2024 10: 53am termite treater (current) use of anticoagulant s April 29, [...] Aortic stenosis April 29, 2024 10: 53am termite treater (current) use of anticoagulant s April 29, 2024 10:53am MVP (mitral valve prolapse) April 29, 2024 10:53am Chronic kidney disease, stage 3 April 292024 10:53am Essential (primary) hypertension April 202024 10:53am Hyperlipidemia April 29, 2024 10: 53am History of non-ST elevation myocardial i nfarction (NSTEMI) April 29, 2024 10:53am Aortic stenosis July 23, 2024 8:33a m termite treater (current) use of anticoagulant s July 23, [...] pm Leukocytosis August 07, 2024 8:16 pm termite treater (current) use of anticoagulant s August 07, [...] Acute hypotension August 07, 2024 8:16 pm 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, 2024 8:16 pm Aortic [...] Chronic kidney disease, stage 3 July 8:33am termite treater (current) use of anticoagulant s July 23, [...] pm Sepsis August 07, 2024 8:16 pm 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, 2024 8:16 pm Aortic [...] November 14, 2024 8:57am Essential (primary) hypertension [facility] 2024 8:57am Hyperlipidemia November 14, 2024 8:57am History of non-ST elevation myocardial infarction (NSTEMI) November 14, 2024 8:57am Chronic kidney disease, stage 3 [facility] 2024 8:57am shelter (current) use of [...] November 14, 2024 8:57am Essential (primary) hypertension [facility] 2024 8:57am Hyperlipidemia November 14, 2024 8:57am History of non-ST elevation myocardial infarction (NSTEMI) November 14, 2024 8:57am Chronic kidney disease, stage 3 [facility] 2024 8:57am shelter (current) use of [...] COMPLEX 45 MINS Amos Floyd MD [address] [place] [address] [facility] [place] [address] [place] [id number] Referral ID Status Reason Start Date Expiration Date Visits Requested Visits Authorized [id number] Authorized Auto-Generat ed Referral 10/26/2022 02/19/2023 1 1 Specialty Diagnoses / Procedures Referred By Contac t Referred To Contact XR IMAGING Diagnoses Hip pain, unspecified laterality Procedures XR HIP BILATERAL 5V PEL/AP/LAT EACH HIP RADEX HIPS BILATERAL WITH PELVIS MINIMUM 5 VIEWS Amos Floyd MD [facility] [place] [address] [place] [address] Referral ID Status Reason Start Date Expiration Date V isits Requested Visits Authorized [id number] Closed Auto-Generate d Referral 10/26/2022 11/25/2023 1 1 Specialty Diagnoses / Procedures Referred By Contac t Referred To Contact [facility] Diagnoses Pain of left hip Procedures PT REHAB FOLLOW UP ORDER THERAPEUTIC EXERCISES RE, EA 15 MIN. Pt [facility] [address] [place] [address] [facility] [address] [address] Referral ID Status Reason Start Date Expiration Date Visits Requested Visits Authorized [id number] Pending Review PCP Requested Referral Auto-Generate d Referral 11/01/2022 01/30/2023 1 1 Specialty Diagnoses / Procedures Referred By Contac t Referred To Contact Podiatry Diagnoses Foot pain, right Procedures CONSULT TO PODIATRY OFFICE/OUTPATIENT [facility] MDM 60-74 MINUTES Enriquez, Jacinda, DISEASE EDUCATION SPECIALIST.PILL PACKER [address] [place] [address] Referral ID Status Reason Start Date Expiration Date Visits Requested Visits Authorized [id number] Authorized PCP Requested Referral 11/08/2022 11/08/2023 1 1 Specialty Diagnoses / Procedures Referred By Contac t Referred To Contact XR IMAGING Diagnoses Foot pain, right Procedures XR FOOT GENERAL 3V AP/LAT/OBL RIGHT RADEX FOOT COMPLETE MINIMUM 3 VIEWS Jacinda Enriquez, DISEASE EDUCATION SPECIALIST.PILL PACKER [address] [place] [address] [place] [address] Referral ID Status Reason Start Date Expiration Date V isits Requested Visits Authorized [id number] Closed Auto-Generate d Referral 11/08/2022 12/08/2023 1 1 Specialty Diagnoses / Procedures Referred By Contac t Referred To Contact [facility] Diagnoses Physical deconditioning Muscle weakness Gait abnormality Procedures CONSULT TO PHYSICAL THERAPY PHYSICAL THERAPY EVALUATION HIGH COMPLEX 45 MINS Rocio Elizalde, DISEASE EDUCATION SPECIALIST.PILL PACKER [address] [place] [address] [facility] [address] [place] [address] Referral ID Status Reason Start Date Expiration Date Visits Requested Visits Authorized [id number] Pending Review Auto-Generat ed Referral 05/31/2023 05/30/2024 1 1 Specialty Diagnoses / Procedures Referred By Contac t Referred To Contact CT IMAGING Diagnoses Nodule of lower lobe of right lung Procedures CT CHEST WO IVCON DIAGNOSTIC COMPUTED TOMOGRAPHY THORAX W/O Amos Bill MD [address] [place] [address] [place] [address] Referral ID Status Reason Start Date Expiration Date Visits Requested Visits Authorized [id number] New Request Auto-Generat ed Referral 02/13/2025 1 1 Additional Source Comments INFORMATION SOURCE (unrecogn ized section and content) DATE CREATED AUTHOR 08/15/2017 Lilib[facility] Crisost[facility] DATE CREATED AUTHOR AUTHOR'S ORGANIZ ATION 04/29/2020 [facility] DATE CREATED AUTHOR AUTHOR'S ORGANIZ ATION 05/27/2020 [facility] DATE CREATED AUTHOR AUTHOR'S ORGANIZ ATION 05/25/2023 [facility] DATE CREATED AUTHOR AUTHOR'S ORGANIZ ATION 06/13/2023 [facility] DATE CREATED AUTHOR AUTHOR'S ORGANIZ ATION 09/24/2024 [facility] DATE CREATED AUTHOR AUTHOR'S ORGANIZ ATION 12/19/2024 [facility] DATE CREATED AUTHOR AUTHOR'S ORGANIZ ATION 12/28/2024 [facility] DATE CREATED AUTHOR AUTHOR'S ORGANIZ ATION 01/01/2025 [facility] Goals (unrecognized section and content) [...] or prosecute any alcohol or drug abuse patient.[facility] Hospital[facility] the event this information is protected by the Federal Confidentiality of Alcohol and Drug Abuse Patient Records regulations: The Federal rules restrict any use of the information to criminally investigate or prosecute any alcohol or drug abuse patient.[facility] HospitalIn the event this information is protected by the Federal Confidentiality of Alcohol and Drug Abuse Patient Records regulations: The Federal rules restrict any use of the information to criminally investigate or prosecute any alcohol or drug abuse patient.[facility] HospitalIn the event this information is protected by the Federal Confidentiality of Alcohol and Drug Abuse Patient Records regulations: The Federal rules restrict any use of the information to criminally investigate or prosecute any alcohol or drug abuse patient.[facility] HospitalIn the event this information is protected by the Federal Confidentiality of Alcohol and Drug Abuse Patient Records regulations: The Federal rules restrict any use of the information to criminally investigate or prosecute any alcohol or drug abuse patient.[facility] HospitalIn the event this information is protected by the Federal Confidentiality of Alcohol and Drug Abuse Patient Records regulations: The Federal rules restrict any use of the information to criminally investigate or prosecute any alcohol or drug abuse patient.[facility] HospitalIn the event this information is protected by the Federal Confidentiality of Alcohol and Drug Abuse Patient Records regulations: The Federal rules restrict any use of the information to criminally investigate or prosecute any alcohol or drug abuse patient.[facility] HospitalIn the event this information is protected by the Federal Confidentiality of Alcohol and Drug Abuse Patient Records regulations: The Federal rules restrict any use of the information to criminally investigate or prosecute any alcohol or drug abuse patient.[facility] HospitalIn the event this information is protected by the Federal Confidentiality of Alcohol and Drug Abuse Patient Records regulations: The Federal rules restrict any use of the information to criminally investigate or prosecute any alcohol or drug abuse patient.[facility] HospitalIn the event this information is protected by the Federal Confidentiality of Alcohol and Drug Abuse Patient Records regulations: The Federal rules restrict any use of the information to criminally investigate or prosecute any alcohol or drug abuse patient.[facility] HospitalIn the event this information is protected by the Federal Confidentiality of Alcohol and Drug Abuse Patient Records regulations: The Federal rules restrict any use of the information to criminally investigate or prosecute any alcohol or drug abuse patient.[facility] HospitalIn the event this information is protected by the Federal Confidentiality of Alcohol and Drug Abuse Patient Records regulations: The Federal rules restrict any use of the information to criminally investigate or prosecute any alcohol or drug abuse patient.[facility] HospitalIn the event this information is protected by the Federal Confidentiality of Alcohol and Drug Abuse Patient Records regulations: The Federal rules restrict any use of the information to criminally investigate or prosecute any alcohol or drug abuse patient.[facility] HospitalIn the event this information is protected by the Federal Confidentiality of Alcohol and Drug Abuse Patient Records regulations: The Federal rules restrict any use of the information to criminally investigate or prosecute any alcohol or drug abuse patient.[facility] HospitalIn the event this information is protected by the Federal Confidentiality of Alcohol and Drug Abuse Patient Records regulations: The Federal rules restrict any use of the information to criminally investigate or prosecute any alcohol or drug abuse patient.[facility] HospitalIn the event this information is protected by the Federal Confidentiality of Alcohol and Drug Abuse Patient Records regulations: The Federal rules restrict any use of the information to criminally investigate or prosecute any alcohol or drug abuse patient.[facility] HospitalIn the event this information is protected by the Federal Confidentiality of Alcohol and Drug Abuse Patient Records regulations: The Federal rules restrict any use of the information to criminally investigate or prosecute any alcohol or drug abuse patient.[facility] HospitalIn the event this information is protected by the Federal Confidentiality of Alcohol and Drug Abuse Patient Records regulations: The Federal rules restrict any use of the information to criminally investigate or prosecute any alcohol or drug abuse patient.[facility] HospitalIn the event this information is protected by the Federal Confidentiality of Alcohol and Drug Abuse Patient Records regulations: The Federal rules restrict any use of the information to criminally investigate or prosecute any alcohol or drug abuse patient.[facility] HospitalIn the event this information is protected by the Federal Confidentiality of Alcohol and Drug Abuse Patient Records regulations: The Federal rules restrict any use of the information to criminally investigate or prosecute any alcohol or drug abuse patient.[facility] HospitalIn the event this information is protected by the Federal Confidentiality of Alcohol and Drug Abuse Patient Records regulations: The Federal rules restrict any use of the information to criminally investigate or prosecute any alcohol or drug abuse patient.[facility] HospitalIn the event this information is protected by the Federal Confidentiality of Alcohol and Drug Abuse Patient Records regulations: The Federal rules restrict any use of the information to criminally investigate or prosecute any alcohol or drug abuse patient.[facility] HospitalIn the event this information is protected by the Federal Confidentiality of Alcohol and Drug Abuse Patient Records regulations: The Federal rules restrict any use of the information to criminally investigate or prosecute any alcohol or drug abuse patient.[facility] HospitalIn the event this information is protected by the Federal Confidentiality of Alcohol and Drug Abuse Patient Records regulations: The Federal rules restrict any use of the information to criminally investigate or prosecute any alcohol or drug abuse patient.[facility] HospitalIn the event this information is protected by the Federal Confidentiality of Alcohol and Drug Abuse Patient Records regulations: The Federal rules restrict any use of the information to criminally investigate or prosecute any alcohol or drug abuse patient.[facility] HospitalIn the event this information is protected by the Federal Confidentiality of Alcohol and Drug Abuse Patient Records regulations: The Federal rules restrict any use of the information to criminally investigate or prosecute any alcohol or drug abuse patient.[facility] HospitalIn the event this information is protected by the Federal Confidentiality of Alcohol and Drug Abuse Patient Records regulations: The Federal rules restrict any use of the information to criminally investigate or prosecute any alcohol or drug abuse patient.[facility] HospitalIn the event this information is protected by the Federal Confidentiality of Alcohol and Drug Abuse Patient Records regulations: The Federal rules restrict any use of the information to criminally investigate or prosecute any alcohol or drug abuse patient.[facility] HospitalIn the event this information is protected by the Federal Confidentiality of Alcohol and Drug Abuse Patient Records regulations: The Federal rules restrict any use of the information to criminally investigate or prosecute any alcohol or drug abuse patient.[facility] HospitalIn the event this information is protected by the Federal Confidentiality of Alcohol and Drug Abuse Patient Records regulations: The Federal rules restrict any use of the information to criminally investigate or prosecute any alcohol or drug abuse patient.[facility] HospitalIn the event this information is protected by the Federal Confidentiality of Alcohol and Drug Abuse Patient Records regulations: The Federal rules restrict any use of the information to criminally investigate or prosecute any alcohol or drug abuse patient.[facility] HospitalIn the event this information is protected by the Federal Confidentiality of Alcohol and Drug Abuse Patient Records regulations: The Federal rules restrict any use of the information to criminally investigate or prosecute any alcohol or drug abuse patient.[facility] HospitalIn the event this information is protected by the Federal Confidentiality of Alcohol and Drug Abuse Patient Records regulations: The Federal rules restrict any use of the information to criminally investigate or prosecute any alcohol or drug abuse patient.[facility] HospitalIn the event this information is protected by the Federal Confidentiality of Alcohol and Drug Abuse Patient Records regulations: The Federal rules restrict any use of the information to criminally investigate or prosecute any alcohol or drug abuse patient.[facility] HospitalIn the event this information is protected by the Federal Confidentiality of Alcohol and Drug Abuse Patient Records regulations: The Federal rules restrict any use of the information to criminally investigate or prosecute any alcohol or drug abuse patient.[facility] HospitalIn the event this information is protected by the Federal Confidentiality of Alcohol and Drug Abuse Patient Records regulations: The Federal rules restrict any use of the information to criminally investigate or prosecute any alcohol or drug abuse patient.[facility] HospitalIn the event this information is protected by the Federal Confidentiality of Alcohol and Drug Abuse Patient Records regulations: The Federal rules restrict any use of the information to criminally investigate or prosecute any alcohol or drug abuse patient.[facility] HospitalIn the event this information is protected by the Federal Confidentiality of Alcohol and Drug Abuse Patient Records regulations: The Federal rules restrict any use of the information to criminally investigate or prosecute any alcohol or drug abuse patient.[facility] HospitalIn the event this information is protected by the Federal Confidentiality of Alcohol and Drug Abuse Patient Records regulations: The Federal rules restrict any use of the information to criminally investigate or prosecute any alcohol or drug abuse patient.[facility] HospitalIn the event this information is protected by the Federal Confidentiality of Alcohol and Drug Abuse Patient Records regulations: The Federal rules restrict any use of the information to criminally investigate or prosecute any alcohol or drug abuse patient.[facility] HospitalIn the event this information is protected by the Federal Confidentiality of Alcohol and Drug Abuse Patient Records regulations: The Federal rules restrict any use of the information to criminally investigate or prosecute any alcohol or drug abuse patient.[facility] HospitalIn the event this information is protected by the Federal Confidentiality of Alcohol and Drug Abuse Patient Records regulations: The Federal rules restrict any use of the information to criminally investigate or prosecute any alcohol or drug abuse patient.[facility] HospitalIn the event this information is protected by the Federal Confidentiality of Alcohol and Drug Abuse Patient Records regulations: The Federal rules restrict any use of the information to criminally investigate or prosecute any alcohol or drug abuse patient.[facility] HospitalIn the event this information is protected by the Federal Confidentiality of Alcohol and Drug Abuse Patient Records regulations: The Federal rules restrict any use of the information to criminally investigate or prosecute any alcohol or drug abuse patient.[facility] HospitalIn the event this information is protected by the Federal Confidentiality of Alcohol and Drug Abuse Patient Records regulations: The Federal rules restrict any use of the information to criminally investigate or prosecute any alcohol or drug abuse patient.[facility] HospitalIn the event this information is protected by the Federal Confidentiality of Alcohol and Drug Abuse Patient Records regulations: The Federal rules restrict any use of the information to criminally investigate or prosecute any alcohol or drug abuse patient.[facility] HospitalIn the event this information is protected by the Federal Confidentiality of Alcohol and Drug Abuse Patient Records regulations: The Federal rules restrict any use of the information to criminally investigate or prosecute any alcohol or drug abuse patient.[facility] HospitalIn the event this information is protected by the Federal Confidentiality of Alcohol and Drug Abuse Patient Records regulations: The Federal rules restrict any use of the information to criminally investigate or prosecute any alcohol or drug abuse patient.[facility] HospitalIn the event this information is protected by the Federal Confidentiality of Alcohol and Drug Abuse Patient Records regulations: The Federal rules restrict any use of the information to criminally investigate or prosecute any alcohol or drug abuse patient.[facility] HospitalIn the event this information is protected by the Federal Confidentiality of Alcohol and Drug Abuse Patient Records regulations: The Federal rules restrict any use of the information to criminally investigate or prosecute any alcohol or drug abuse patient.[facility] HospitalIn the event this information is protected by the Federal Confidentiality of Alcohol and Drug Abuse Patient Records regulations: The Federal rules restrict any use of the information to criminally investigate or prosecute any alcohol or drug abuse patient.[facility] HospitalIn the event this information is protected by the Federal Confidentiality of Alcohol and Drug Abuse Patient Records regulations: The Federal rules restrict any use of the information to criminally investigate or prosecute any alcohol or drug abuse patient.[facility] HospitalIn the event this information is protected by the Federal Confidentiality of Alcohol and Drug Abuse Patient Records regulations: The Federal rules restrict any use of the information to criminally investigate or prosecute any alcohol or drug abuse patient.[facility] HospitalIn the event this information is protected by the Federal Confidentiality of Alcohol and Drug Abuse Patient Records regulations: The Federal rules restrict any use of the information to criminally investigate or prosecute any alcohol or drug abuse patient.[facility] HospitalIn the event this information is protected by the Federal Confidentiality of Alcohol and Drug Abuse Patient Records regulations: The Federal rules restrict any use of the information to criminally investigate or prosecute any alcohol or drug abuse patient.[facility] HospitalIn the event this information is protected by the Federal Confidentiality of Alcohol and Drug Abuse Patient Records regulations: The Federal rules restrict any use of the information to criminally investigate or prosecute any alcohol or drug abuse patient.[facility] HospitalIn the event this information is protected by the Federal Confidentiality of Alcohol and Drug Abuse Patient Records regulations: The Federal rules restrict any use of the information to criminally investigate or prosecute any alcohol or drug abuse patient.[facility] HospitalIn the event this information is protected by the Federal Confidentiality of Alcohol and Drug Abuse Patient Records regulations: The Federal rules restrict any use of the information to criminally investigate or prosecute any alcohol or drug abuse patient.[facility] HospitalIn the event this information is protected by the Federal Confidentiality of Alcohol and Drug Abuse Patient Records regulations: The Federal rules restrict any use of the information to criminally investigate or prosecute any alcohol or drug abuse patient.[facility] HospitalIn the event this information is protected by the Federal Confidentiality of Alcohol and Drug Abuse Patient Records regulations: The Federal rules restrict any use of the information to criminally investigate or prosecute any alcohol or drug abuse patient.[facility] HospitalIn the event this information is protected by the Federal Confidentiality of Alcohol and Drug Abuse Patient Records regulations: The Federal rules restrict any use of the information to criminally investigate or prosecute any alcohol or drug abuse patient.[facility] HospitalIn the event this information is protected by the Federal Confidentiality of Alcohol and Drug Abuse Patient Records regulations: The Federal rules restrict any use of the information to criminally investigate or prosecute any alcohol or drug abuse patient.[facility] HospitalIn the event this information is protected by the Federal Confidentiality of Alcohol and Drug Abuse Patient Records regulations: The Federal rules restrict any use of the information to criminally investigate or prosecute any alcohol or drug abuse patient.[facility] HospitalIn the event this information is protected by the Federal Confidentiality of Alcohol and Drug Abuse Patient Records regulations: The Federal rules restrict any use of the information to criminally investigate or prosecute any alcohol or drug abuse patient.[facility] HospitalIn the event this information is protected by the Federal Confidentiality of Alcohol and Drug Abuse Patient Records regulations: The Federal rules restrict any use of the information to criminally investigate or prosecute any alcohol or drug abuse patient.[facility] HospitalIn the event this information is protected by the Federal Confidentiality of Alcohol and Drug Abuse Patient Records regulations: The Federal rules restrict any use of the information to criminally investigate or prosecute any alcohol or drug abuse patient.[facility] HospitalIn the event this information is protected by the Federal Confidentiality of Alcohol and Drug Abuse Patient Records regulations: The Federal rules restrict any use of the information to criminally investigate or prosecute any alcohol or drug abuse patient.[facility] HospitalIn the event this information is protected by the Federal Confidentiality of Alcohol and Drug Abuse Patient Records regulations: The Federal rules restrict any use of the information to criminally investigate or prosecute any alcohol or drug abuse patient.[facility] HospitalIn the event this information is protected by the Federal Confidentiality of Alcohol and Drug Abuse Patient Records regulations: The Federal rules restrict any use of the information to criminally investigate or prosecute any alcohol or drug abuse patient.[facility] HospitalIn the event this information is protected by the Federal Confidentiality of Alcohol and Drug Abuse Patient Records regulations: The Federal rules restrict any use of the information to criminally investigate or prosecute any alcohol or drug abuse patient.[facility] HospitalIn the event this information is protected by the Federal Confidentiality of Alcohol and Drug Abuse Patient Records regulations: The Federal rules restrict any use of the information to criminally investigate or prosecute any alcohol or drug abuse patient.[facility] HospitalIn the event this information is protected by the Federal Confidentiality of Alcohol and Drug Abuse Patient Records regulations: The Federal rules restrict any use of the information to criminally investigate or prosecute any alcohol or drug abuse patient.[facility] HospitalIn the event this information is protected by the Federal Confidentiality of Alcohol and Drug Abuse Patient Records regulations: The Federal rules restrict any use of the information to criminally investigate or prosecute any alcohol or drug abuse patient.[facility] HospitalIn the event this information is protected by the Federal Confidentiality of Alcohol and Drug Abuse Patient Records regulations: The Federal rules restrict any use of the information to criminally investigate or prosecute any alcohol or drug abuse patient.[facility] HospitalIn the event this information is protected by the Federal Confidentiality of Alcohol and Drug Abuse Patient Records regulations: The Federal rules restrict any use of the information to criminally investigate or prosecute any alcohol or drug abuse patient.[facility] HospitalIn the event this information is protected by the Federal Confidentiality of Alcohol and Drug Abuse Patient Records regulations: The Federal rules restrict any use of the information to criminally investigate or prosecute any alcohol or drug abuse patient.[facility] HospitalIn the event this information is protected by the Federal Confidentiality of Alcohol and Drug Abuse Patient Records regulations: The Federal rules restrict any use of the information to criminally investigate or prosecute any alcohol or drug abuse patient.[facility] HospitalIn the event this information is protected by the Federal Confidentiality of Alcohol and Drug Abuse Patient Records regulations: The Federal rules restrict any use of the information to criminally investigate or prosecute any alcohol or drug abuse patient.[facility] HospitalIn the event this information is protected by the Federal Confidentiality of Alcohol and Drug Abuse Patient Records regulations: The Federal rules restrict any use of the information to criminally investigate or prosecute any alcohol or drug abuse patient.[facility] HospitalIn the event this information is protected by the Federal Confidentiality of Alcohol and Drug Abuse Patient Records regulations: The Federal rules restrict any use of the information to criminally investigate or prosecute any alcohol or drug abuse patient.[facility] HospitalIn the event this information is protected by the Federal Confidentiality of Alcohol and Drug Abuse Patient Records regulations: The Federal rules restrict any use of the information to criminally investigate or prosecute any alcohol or drug abuse patient.[facility] HospitalIn the event this information is protected by the Federal Confidentiality of Alcohol and Drug Abuse Patient Records regulations: The Federal rules restrict any use of the information to criminally investigate or prosecute any alcohol or drug abuse patient.[facility] HospitalIn the event this information is protected by the Federal Confidentiality of Alcohol and Drug Abuse Patient Records regulations: The Federal rules restrict any use of the information to criminally investigate or prosecute any alcohol or drug abuse patient.[facility] HospitalIn the event this information is protected by the Federal Confidentiality of Alcohol and Drug Abuse Patient Records regulations: The Federal rules restrict any use of the information to criminally investigate or prosecute any alcohol or drug abuse patient.[facility] HospitalIn the event this information is protected by the Federal Confidentiality of Alcohol and Drug Abuse Patient Records regulations: The Federal rules restrict any use of the information to criminally investigate or prosecute any alcohol or drug abuse patient.[facility] HospitalIn the event this information is protected by the Federal Confidentiality of Alcohol and Drug Abuse Patient Records regulations: The Federal rules restrict any use of the information to criminally investigate or prosecute any alcohol or drug abuse patient.[facility] HospitalIn the event this information is protected by the Federal Confidentiality of Alcohol and Drug Abuse Patient Records regulations: The Federal rules restrict any use of the information to criminally investigate or prosecute any alcohol or drug abuse patient.[facility] HospitalIn the event this information is protected by the Federal Confidentiality of Alcohol and Drug Abuse Patient Records regulations: The Federal rules restrict any use of the information to criminally investigate or prosecute any alcohol or drug abuse patient.[facility] HospitalIn the event this information is protected by the Federal Confidentiality of Alcohol and Drug Abuse Patient Records regulations: The Federal rules restrict any use of the information to criminally investigate or prosecute any alcohol or drug abuse patient.[facility] HospitalIn the event this information is protected by the Federal Confidentiality of Alcohol and Drug Abuse Patient Records regulations: The Federal rules restrict any use of the information to criminally investigate or prosecute any alcohol or drug abuse patient.[facility] HospitalIn the event this information is protected by the Federal Confidentiality of Alcohol and Drug Abuse Patient Records regulations: The Federal rules restrict any use of the information to criminally investigate or prosecute any alcohol or drug abuse patient.[facility] HospitalIn the event this information is protected by the Federal Confidentiality of Alcohol and Drug Abuse Patient Records regulations: The Federal rules restrict any use of the information to criminally investigate or prosecute any alcohol or drug abuse patient.[facility] HospitalIn the event this information is protected by the Federal Confidentiality of Alcohol and Drug Abuse Patient Records regulations: The Federal rules restrict any use of the information to criminally investigate or prosecute any alcohol or drug abuse patient.[facility] HospitalIn the event this information is protected by the Federal Confidentiality of Alcohol and Drug Abuse Patient Records regulations: The Federal rules restrict any use of the information to criminally investigate or prosecute any alcohol or drug abuse patient.[facility] HospitalIn the event this information is protected by the Federal Confidentiality of Alcohol and Drug Abuse Patient Records regulations: The Federal rules restrict any use of the information to criminally investigate or prosecute any alcohol or drug abuse patient.[facility] HospitalIn the event this information is protected by the Federal Confidentiality of Alcohol and Drug Abuse Patient Records regulations: The Federal rules restrict any use of the information to criminally investigate or prosecute any alcohol or drug abuse patient.[facility] HospitalIn the event this information is protected by the Federal Confidentiality of Alcohol and Drug Abuse Patient Records regulations: The Federal rules restrict any use of the information to criminally investigate or prosecute any alcohol or drug abuse patient.[facility] HospitalIn the event this information is protected by the Federal Confidentiality of Alcohol and Drug Abuse Patient Records regulations: The Federal rules restrict any use of the information to criminally investigate or prosecute any alcohol or drug abuse patient.[facility] HospitalIn the event this information is protected by the Federal Confidentiality of Alcohol and Drug Abuse Patient Records regulations: The Federal rules restrict any use of the information to criminally investigate or prosecute any alcohol or drug abuse patient.[facility] HospitalIn the event this information is protected by the Federal Confidentiality of Alcohol and Drug Abuse Patient Records regulations: The Federal rules restrict any use of the information to criminally investigate or prosecute any alcohol or drug abuse patient.[facility] HospitalIn the event this information is protected by the Federal Confidentiality of Alcohol and Drug Abuse Patient Records regulations: The Federal rules restrict any use of the information to criminally investigate or prosecute any alcohol or drug abuse patient.[facility] Reason for Visit (unrecogniz ed section [...] HIGH COMPLEX 45 MINS Amos Floyd MD [address] [place] [address] [facility] [address] [place] [id number] Referral ID Status Reason Start Date Expiration Date Visits Requested Visits Authorized [id number] Authorized Auto-Generat ed Referral 02/20/2023 02/20/2024 99 [...] up Reason Comments 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 Onset Date Comments Refill Request 09/19/2022 Reason Onset Date Comments Left Hip Pain Immunizations 10/26/2022 Flu vaccination Reason Comments PT Eval Specialty Diagnoses / Procedures Referred By Contac t Referred To Contact [facility] Diagnoses Hip pain, unspecified laterality Procedures CONSULT TO PHYSICAL THERAPY PHYSICAL THERAPY EVALUATION HIGH COMPLEX 45 MINS Amos Floyd MD [address] [place] [address] [facility] [address] [place] [address] Referral ID Status Reason Start Date Expiration Date V isits Requested Visits Authorized [id number] Closed Auto-Generate d Referral 10/26/2022 02/19/2023 1 1 Reason Comments Pain (foot) Right side of R foot x 2 days Reason Comments Refill Request Reason Comments Established Patient Follow Up Reason Comments Medicare Wellness Exam F/U 6 months Reason Comments PT Eval Reason Comments Patient Update Reason Comments ED Follow-up [facility] ER Specialty Diagnoses / Procedures Referred By Contac t Referred To Contact Diagnoses Hypercalcemia Addisons Disease Procedures ER OBSERVATION Elisa Mcdonough MD [address] [place] [address] [address] [address] [place] [address] Referral ID Status Reason Start Date Expiration Date Visits Re quested Visits Authorized [id number] 1 Reason Comments Clinical Update Reason [...] THORAX W/O CNTRST Amos Floyd MD [address] [place] [address] [place] [address] Referral ID Status Reason Start Date Expiration Date V isits Requested Visits Authorized [id number] Closed Auto-Generate d Referral 01/15/2024 02/13/2025 1 [...] NEW HIGH MDM 60 MINUTES Rocio Elizalde, DISEASE EDUCATION SPECIALIST.PILL PACKER [address] [place] [address] Phone: tel: fax: Referral ID Status Reason Start Date Expiration Date V isits Requested Visits Authorized [id number] Closed PCP Requested Referral 09/13/2024 09/13/2025 1 1 Reason Comments Consult Reason Comments Follow-up Reason Comments 2 month follow-up Reason Comments Cardiac Valve Problem Hospital Follow-up Reason Onset Date Comments Procedure 10/10/2024 Reason Comments Cardiac Valve Problem Care Teams (unrecognized sec tion and content) Fire Fighters Dispatcher Relationship Specialty Start Date End Date Amos Floyd MD [address] [place], [place] [id number] PCP - General 04/16/04 Fire Fighters Dispatcher Relationship Specialty Start Date End Date Amos Floyd MD [address] [place] [address] PCP - General 04/16/04 Fire Fighters Dispatcher Relationship Specialty Start Date End Date Amos Floyd MD [address] [place], [place] [address] PCP - General 04/16/04 Fire Fighters Dispatcher Relationship Specialty Start Date End Date Amos Floyd MD [address] [place], [place] [id number] PCP - General 04/16/04 Fire Fighters Dispatcher Relationship Specialty Start Date End Date Amos Floyd MD [address] [place] [address] PCP - General 04/16/04 Fire Fighters Dispatcher Relationship Specialty Start Date End Date Amos Floyd MD [address] [place] [address] PCP - General 04/16/04 Fire Fighters Dispatcher Relationship Specialty Start Date End Date Amos Floyd MD [address] [place] [address] PCP - General 04/16/04 Fire Fighters Dispatcher Relationship Specialty Start Date End Date Amos Floyd MD [address] [place] [address] PCP - General 04/16/04 Fire Fighters Dispatcher Relationship Specialty Start Date End Date Amos Floyd MD [address] [place] [address] PCP - General 04/16/04 Fire Fighters Dispatcher Relationship Specialty Start Date End Date Amos Floyd MD [address] [place] [address] PCP - General 04/16/04 Fire Fighters Dispatcher Relationship Specialty Start Date End Date Amos Floyd MD [address] [place] [address] PCP - General 04/16/04 Fire Fighters Dispatcher Relationship Specialty Start Date End Date Amos Floyd MD [address] [place] [address] PCP - General 04/16/04 Fire Fighters Dispatcher Relationship Specialty Start Date End Date Amos Floyd MD [address] [place] [address] PCP - General 04/16/04 Team Status: Active [...] Active Basim DISLA, PA Attending Provider Active Fire Fighters Dispatcher Relationship Specialty Start Date End Date Amos Floyd MD [address] [place] [address] PCP - General 04/16/04 Fire Fighters Dispatcher Relationship Specialty Start Date End Date Amos Floyd MD [address] [place] [address] PCP - General 04/16/04 Team Status: Inactive [...] PA Attending Provider, Referr ing Provider Active Fire Fighters Dispatcher Relationship Specialty Start Date End Date Amos Floyd MD [address] [place] [address] PCP - General 04/16/04 Fire Fighters Dispatcher Relationship Specialty Start Date End Date Amos Floyd MD [address] [place] [address] PCP - General 04/16/04 Fire Fighters Dispatcher Relationship Specialty Start Date End Date Amos Floyd MD [address] [place] [address] PCP - General 04/16/04 Fire Fighters Dispatcher Relationship Specialty Start Date End Date Amos Floyd MD [address] [place] [address] PCP - General 04/16/04 Fire Fighters Dispatcher Relationship Specialty Start Date End Date Amos Floyd MD [address] [place] [address] PCP - General 04/16/04 Team Status: Inactive Member Role Status Dates Dr. Amos Floyd MD Primary Care Provider Active Dr. Jordan Marte MD Other Provider Active Basim Velasquez PA, PA Attending Provider, Referr ing Provider Active Dr. Torsten Vann MD Other Provider Active Dr. Jennifer Tarango DO Other Provider Active Fire Fighters Dispatcher Relationship Specialty Start Date End Date Amos Floyd MD [address] [place] [address] PCP - General 04/16/04 Fire Fighters Dispatcher Relationship Specialty Start Date End Date Amos Floyd MD [address] [place] [address] PCP - General 04/16/04 Fire Fighters Dispatcher Relationship Specialty Start Date End Date Amos Floyd MD [address] [place] [address] PCP - General 04/16/04 Team Status: Inactive Member Role Status Dates Dr. Amos Floyd MD Primary Care Provider, Refer ring Provider Active Ryan Ji BOOTH OPERATOR, BOOTH OPERATOR-C Attending Provider Active Fire Fighters Dispatcher Relationship Specialty Start Date End Date Amos Floyd MD [address] [place] [address] PCP - General 04/16/04 Fire Fighters Dispatcher Relationship Specialty Start Date End Date Amos Floyd MD [address] [place] [address] PCP - General 04/16/04 Team Status: Active [...] MD Primary Care Provider Active Ryan Ji BOOTH OPERATOR, BOOTH OPERATOR-C Attending Provider, Referring Pro vider Active Fire Fighters Dispatcher Relationship Specialty Start Date End Date Amos Floyd MD [address] [place] [address] PCP - General 04/16/04 Team Status: Inactive Member Role Status Dates Dr. Amos Floyd MD Primary Care Provider Active Dr. Juan Alberto Mcclendon MD Emergency Provider Active Fire Fighters Dispatcher Relationship Specialty Start Date End Date Amos Floyd MD [address] [place] [address] PCP - General 04/16/04 Fire Fighters Dispatcher Relationship Specialty Start Date End Date Amos Floyd MD [address] [place] [address] PCP - General 04/16/04 Fire Fighters Dispatcher Relationship Specialty Start Date End Date Amos Floyd MD [address] [place] [address] PCP - General 04/16/04 Team Status: Inactive Member Role Status Dates Dr. Amos Floyd MD Primary Care Provider Active Dr. Juan Alberto Mcclendon MD Attending Provider, Emergency Provider Active Team Status: Inactive Member Role Status Dates Dr. Amos Floyd MD Primary Care Provider Active Dr. Ankush Noguera DO Emergency Provider Active Fire Fighters Dispatcher Relationship Specialty Start Date End Date Amos Floyd MD [address] [place] [address] PCP - General 04/16/04 Fire Fighters Dispatcher Relationship Specialty Start Date End Date Amos Floyd MD [address] [place] [address] PCP - General 04/16/04 Fire Fighters Dispatcher Relationship Specialty Start Date End Date Amos Floyd MD [address] [place] [address] PCP - General 05/01/20 Team Status: Inactive Member Role Status Dates Dr. Amos Floyd MD Primary Care Provider Active Dr. Ankush Noguera DO Attending Provider, Emergency Provider Active Team Status: Inactive Member Role Status Dates Dr. Amos Floyd MD Primary Care Provider Active Rocio BOOTH OPERATOR, Fide Attending Provider, Referring Prov ider Active Fire Fighters Dispatcher Relationship Specialty Start Date End Date Amos Floyd MD [address] [place] [address] PCP - General 04/16/04 Fire Fighters Dispatcher Relationship Specialty Start Date End Date Amos Floyd MD [address] [place] [address] PCP - General 04/16/04 Fire Fighters Dispatcher Relationship Specialty Start Date End Date Amos Floyd MD [address] [place] [address] PCP - General 04/16/04 Fire Fighters Dispatcher Relationship Specialty Start Date End Date Amos Floyd MD [address] [place] [address] PCP - General 04/16/04 Fire Fighters Dispatcher Relationship Specialty Start Date End Date Amos Floyd MD [address] [place] [address] PCP - General 04/16/04 Fire Fighters Dispatcher Relationship Specialty Start Date End Date Amos Floyd MD [address] [place] [address] PCP - General 04/16/04 Fire Fighters Dispatcher Relationship Specialty Start Date End Date Amos Floyd MD [address] [place] [address] PCP - General 04/16/04 Fire Fighters Dispatcher Relationship Specialty Start Date End Date Amos Floyd MD [address] [place] [address] PCP - General 04/16/04 Fire Fighters Dispatcher Relationship Specialty Start Date End Date Amos Floyd MD [address] [place] [address] PCP - General 04/16/04 Fire Fighters Dispatcher Relationship Specialty Start Date End Date Amos Floyd MD [address] [place] [address] PCP - General 04/16/04 Fire Fighters Dispatcher Relationship Specialty Start Date End Date Amos Floyd MD [address] [place] [address] PCP - General 04/16/04 Fire Fighters Dispatcher Relationship Specialty Start Date End Date Amos Floyd MD [address] [place] [address] PCP - General 04/16/04 Fire Fighters Dispatcher Relationship Specialty Start Date End Date Amos Floyd MD [address] [place] [address] PCP - General 04/16/04 Fire Fighters Dispatcher Relationship Specialty Start Date End Date Amos Floyd MD [address] [place] [address] PCP - General 04/16/04 Fire Fighters Dispatcher Relationship Specialty Start Date End Date Amos Floyd MD [address] [place] [address] PCP - General 04/16/04 Fire Fighters Dispatcher Relationship Specialty Start Date End Date Amos Floyd MD [address] [place] [address] PCP - General 04/16/04 Rocio Elizalde, DISEASE EDUCATION SPECIALIST.PILL PACKER [address] [place] [address] Casting And Pasting Supervisor Internal Medicine 01/29/24 Fire Fighters Dispatcher Relationship Specialty Start Date End Date Amos Floyd MD [address] [place] [address] PCP - General 04/16/04 Rocio Elizalde, DISEASE EDUCATION SPECIALIST.PILL PACKER [address] [place] [address] Casting And Pasting Supervisor Internal Medicine 01/29/24 Fire Fighters Dispatcher Relationship Specialty Start Date End Date Amos Floyd MD [address] [place] [address] PCP - General 04/16/04 Rocio Elizalde, DISEASE EDUCATION SPECIALIST.PILL PACKER [address] [place] [address] Casting And Pasting Supervisor Internal Medicine 01/29/24 Fire Fighters Dispatcher Relationship Specialty Start Date End Date Amos Floyd MD [address] [place] [address] PCP - General 04/16/04 Rocio Elizalde, LIDIA.PILL PACKER [address] [place] [address] Casting And Pasting Supervisor Internal Medicine 01/29/24 Team Status: Active [...] Provider Active S tart: May 24, 2024 Fire Fighters Dispatcher Relationship Specialty Start Date End Date Amos Floyd MD [address] [place], [place] [address] PCP - General 04/16/04 Rocio Elizalde, DISEASE EDUCATION SPECIALIST.PILL PACKER [address] [place], [place] [address] Casting And Pasting Supervisor Internal Medicine 01/29/24 Team Status: Inactive [...] Active Start: June 21, 2024 Dr. Jordan aMrte MD Other Provider Active Start : June [...] 2024 End: July 23, 2024 Heaven Bolton BOOTH OPERATOR, BOOTH OPERATOR-C Attending Provider Active Start: July 23, 2024 End: July 23, 2024 Fire Fighters Dispatcher Relationship Specialty Start Date End Date Amos Floyd MD [address] [place] [address] PCP - General 04/16/04 Rocio Elizalde, DISEASE EDUCATION SPECIALIST.PILL PACKER [address] [place], [place] [address] Casting And Pasting Supervisor Internal Medicine 01/29/24 Team Status: Inactive [...] Other Provider Active Start: August 09, 2024 Fire Fighters Dispatcher Relationship Specialty Start Date End Date Amos Floyd MD [address] [place] [place] [address] PCP - General 04/16/04 Rocio Elizalde, DISEASE EDUCATION SPECIALIST.PILL PACKER [address] [facility] [place] [address] Casting And Pasting Supervisor Internal Medicine 01/29/24 Annemarie Read, brass wind instrument maker Rn Ante Partum Pulmonary Disease 08/15/24 Fire Fighters Dispatcher Relationship Specialty Start Date End Date Amos Floyd MD [address] [place] [address] PCP - General 04/16/04 Rocio Elizalde, DISEASE EDUCATION SPECIALIST.PILL PACKER [address] [place] [place] [address] Casting And Pasting Supervisor Internal Medicine 01/29/24 Annemarie Read, brass wind instrument maker Rn Ante Partum Pulmonary Disease 08/15/24 Fire Fighters Dispatcher Relationship Specialty Start Date End Date Amos Floyd MD [address] [facility] [place] [address] PCP - General 04/16/04 Rocio Elizalde, DISEASE EDUCATION SPECIALIST.PILL PACKER [address] [place] [place] [address] Casting And Pasting Supervisor Internal Medicine 01/29/24 Annemarie Read, brass wind instrument maker Rn Ante Partum Pulmonary Disease 08/15/24 Fire Fighters Dispatcher Relationship Specialty Start Date End Date Amos Floyd MD [address] [facility] [place] [address] PCP - General 04/16/04 Rocio Elizalde, DISEASE EDUCATION SPECIALIST.PILL PACKER [address] [place] [address] Casting And Pasting Supervisor Internal Medicine 01/29/24 Annemarie Read, brass wind instrument maker Rn Ante Partum Pulmonary Disease 08/15/24 Fire Fighters Dispatcher Relationship Specialty Start Date End Date Amos Floyd MD [address] [place] [address] PCP - General 04/16/04 Rocio Elizalde, DISEASE EDUCATION SPECIALIST.PILL PACKER [address] [place] [address] Casting And Pasting Supervisor Internal Medicine 01/29/24 Annemarie Read, brass wind instrument maker Rn Ante Partum Pulmonary Disease 08/15/24 Fire Fighters Dispatcher Relationship Specialty Start Date End Date Amos Floyd [address] [place] [place] [address] PCP - General Internal Medicine 09/03/24 Fire Fighters Dispatcher Relationship Specialty Start Date End Date Amos Floyd [address] [place] [address] PCP - General Internal Medicine 09/03/24 Team [...] 2024 End: July 23, 2024 Heaven Bolton BOOTH OPERATOR, BOOTH OPERATOR-C Attending Provider Active Start: July 23, [...] September 10, 2024 End: September 10, 2024 Fire Fighters Dispatcher Relationship Specialty Start Date End Date Amos Floyd MD [address] [place], [place] [address] PCP - General 04/16/04 Rocio Elizalde, DISEASE EDUCATION SPECIALIST.PILL PACKER [address] [place] [address] Casting And Pasting Supervisor Internal Medicine 01/29/24 Fire Fighters Dispatcher Relationship Specialty Start Date End Date Amos Floyd [address] [place] [address] PCP - General Internal Medicine 09/03/24 Fire Fighters Dispatcher Relationship Specialty Start Date End Date Amos Floyd [address] [place] [address] PCP - General Internal Medicine 09/03/24 Fire Fighters Dispatcher Relationship Specialty Start Date End Date Amos Floyd MD [address] [place] [address] PCP - General 04/16/04 Rocio Elizalde, DISEASE EDUCATION SPECIALIST.PILL PACKER [address] [place] [address] Casting And Pasting Supervisor Internal Medicine 01/29/24 Fire Fighters Dispatcher Relationship Specialty Start Date End Date Amos Floyd [address] [place] [address] PCP - General Internal Medicine 09/03/24 Fire Fighters Dispatcher Relationship Specialty Start Date End Date Amos Floyd [address] [place] [address] PCP - General Internal Medicine 09/03/24 Fire Fighters Dispatcher Relationship Specialty Start Date End Date Amos Floyd [address] [place] [address] PCP - General Internal Medicine 09/03/24 Team [...] 2024 End: July 23, 2024 Heaven Bolton BOOTH OPERATOR, BOOTH OPERATOR-C Attending Provider Active Start: July 23, [...] October 03, 2024 End: October 03, 2024 Fire Fighters Dispatcher Relationship Specialty Start Date End Date Amos Floyd [address] [place], [place] [address] PCP - General Internal Medicine 09/03/24 Fire Fighters Dispatcher Relationship Specialty Start Date End Date Amos Floyd [address] [place], [place] [address] PCP - General Internal Medicine 09/03/24 Fire Fighters Dispatcher Relationship Specialty Start Date End Date Amos Floyd [address] [place], [place] [address] PCP - General Internal Medicine 09/03/24 Team [...] 2024 End: July 23, 2024 Heaven Bolton BOOTH OPERATOR, BOOTH OPERATOR-C Attending Provider Active Start: July 23, [...] October 15, 2024 End: October 15, 2024 Fire Fighters Dispatcher Relationship Specialty Start Date End Date Amos Floyd [address] [place] [address] PCP - General Internal Medicine 09/03/24 Fire Fighters Dispatcher Relationship Specialty Start Date End Date Amos Floyd [address] [place] [address] PCP - General Internal Medicine 09/03/24 Fire Fighters Dispatcher Relationship Specialty Start Date End Date Amos Floyd MD [address] [place] [address] PCP - General 04/16/04 Rocio Elizalde, LIDIA.PILL PACKER [address] [place] [address] Casting And Pasting Supervisor Internal Medicine 01/29/24 Fire Fighters Dispatcher Relationship Specialty Start Date End Date Amos Floyd [address] [place] [address] PCP - General Internal Medicine 09/03/24 Fire Fighters Dispatcher Relationship Specialty Start Date End Date Amos Floyd [address] [place] [address] PCP - General Internal Medicine 09/03/24 Team Status: Active Member Role/Relationship Status Dates Dr. Amos Floyd MD Primary care physician Activ e Team Status: Inactive Member Role/Relationship Status Dates Dr. Amos Floyd MD Primary care physician Activ e Start: July 23, 2024 End: July 23, 2024 Dr. Amos Floyd MD Referring Provider Active Start: July 23, 2024 End: July 23, 2024 Heaven Bolton BOOTH OPERATOR, BOOTH OPERATOR-C Attending physician Active Start: July 23, [...] November 14, 2024 End: November 14, 2024 Fire Fighters Dispatcher Relationship Specialty Start Date End Date Amos Floyd [address] [place] [address] PCP - General Internal Medicine 09/03/24 Fire Fighters Dispatcher Relationship Specialty Start Date End Date Amos Floyd [address] [place] [address] PCP - General Internal Medicine 09/03/24 Team [...] Referring Provider Active Start: December 10, 2024 Fire Fighters Dispatcher Relationship Specialty Start Date End Date Amos Floyd [address] [place] [address] PCP - General Internal Medicine 09/03/24 Scheduled [...] Aicha Call RN) 0934 (Given - Provider: Aihca Call RN) 0838 (Given - Provider: Shakira [...] Mon10/23/24 at 2100 2054 (Given - Provider: Krysatl Mcgee RN) 0531 (Given - Provider: Krystal [...] at 166.7 mL/hr, Administer over 90 Minutes, Alumni Secretary to O.R., On Mon10/23/24 at 0545, For 1 dose, Preprocedure, Administer within 1 hour prior to incision. Vial Mate, Suspected Indication (Select all that apply): Surgical Prophylaxis 0745 (New Bag - Provider: Elijah Zaldivar APRN - RADIO PRESENTER) PRN Medication Order 10/22/2024 10/23/2024 10/24/2024 acetaminophen [...] BE BASED ON THE PRIMARY CLINICAL RECORDS. [employer] [facility]. provides no warranty or guarantee of the accuracy or completeness of information in this document.
[2025-02-13] MEDS: 0.9% Saline Lock 10 ML Syringe IV ×2 (18:19→20:17)
[2025-02-13 19:51] LABS: Troponin T High Sens 4 HR 125 ng/L (<=14)
[2025-02-13] MEDS: Metoprolol(XL)Succ 50 MG Tablet PO (20:18)
[2025-02-13] MEDS: APIXABAN 2.5 MG TABLET (WCH) PO (20:18)
[2025-02-14 04:00] VITALS: BP 113/91; PULSE 89; RESP 16; TEMP 35.8; O2SAT 96
[2025-02-14 05:29] VITALS: BMI 27.3
--- NOTE | 2025-02-14 05:55 | ECHOL_ITS ---
Reason For Study Reason For Study: CHF Procedure This was a limited 2D transthoracic echocardiogram. Definity deferred due to nephrectomy. Exam performed portable in patient room. Left Ventricle Moderate concentric left ventricular hypertrophy. Mildly dilated left ventricle. The estimated ejection fraction is 15??? 20 %. Right Ventricle Normal RV size. Normal systolic function. Atria There is mild biatrial dilatation. Mitral Valve Mild diffuse mitral valve thickening. Mild diffuse mitral valve calcification. Mild mitral annular calcification. There is no mitral valve stenosis. Mild (1+) mitral valve insufficiency. Tricuspid Valve Normal tricuspid valve. There is no tricuspid stenosis. Moderate-Severe (3+) tricuspid valve insufficiency. Right ventricular systolic pressure estimated to be 35???40 mmHg. Mild pulmonary hypertension. Aortic Valve Poor visualization however TAVR valve in place appears to be functioning normally. Pulmonic Valve Normal pulmonic valve. There is no pulmonic valvular stenosis. Trivial pulmonic valve insufficiency identified. Great Vessels Normal sized IVC that collapses with respiration/sniff. Pericardium/Pleural No pericardial effusion. Epicardial fat. MMode/2D Measurements & Calculations LVIDd: 5.9 cm IVSd: 1.4 cm LAV(MOD- bp): 70.4 ml LVIDs: 5.7 cm LVPWd: 1.4 cm LAV(MOD- bp) Indexed: 41.8 ml/m2 FS: 4.3 % LAV(MOD- sp2): 83.1 ml LAV(MOD- sp4): 59.4 ml SV(MOD-sp4): 32.1 ml SV(sp4- el): 36.6 ml LVAd ap4: 42.9 cm2 LVLd ap4: 9.4 cm SI(MOD-sp4): 19.1 ml/m2 EDV(MOD-sp4): 162.6 ml EDV(sp4-el): 166.4 ml LVAs ap4: 37.2 cm2 LVLs ap4: 9.1 cm ESV(MOD-sp4): 130.5 ml ESV(sp4-el): 129.7 ml EF(MOD-sp4): 19.7 % EF(sp4-el): 22.0 % LA A4 area: 22.1 cm2 LA dimension(2D): 5.8 cm RA A4 area: 22.0 cm2 ECHO/Echo, Limited Study Interpretation Summary The estimated ejection fraction is 15???20 %. Mild (1+) mitral valve insufficiency. Moderate-Severe (3+) tricuspid valve insufficiency. Right ventricular systolic pressure estimated to be 35???40 mmHg. Mild pulmonary hypertension. Normal sized IVC that collapses with respiration/sniff. Compared to prior study, there is no significant change. Ordering Physician: Karin Fontaine Referring Physician: MD Nixon Fulton Performed By: Bianka Ta RCS
--- NOTE | 2025-02-14 08:02 | PN.HOSP_ITS ---
Reason for Visit Chief Complaint: Dyspnea, orthopnea. Subjective Subjective breathing well. Objective Data Objective Data Vital Signs: Vital Signs Temp Pulse Resp BP Pulse Ox O2 Del Method 35.8 C L 89 16 113/91 H 96 Room Air 02/14/25 04:00 02/14/25 04:00 02/14/25 04:00 02/14/25 04:00 02/14/25 04:00 02/14/25 04:00 Oxygen Delivery Method Room Air Weight: 67.8 kg Body Mass Index (BMI) 27.3 Intake & Output: Intake and Output for Last 24 Hours 02/12/25 02/13/25 02/14/25 23:59 23:59 23:59 Output Total 650 / 650 250 / 250 Balance -650 / -650 -250 / -250 Lab / Micro Data 02/13/25 14:44 02/13/25 14:44 Labs: Laboratory Results - last 24 hr 02/13/25 14:44: WBC 11.5 H, RBC 4.78, Hgb 13.6, Hct 43.0, MCV 90.0, MCH 28.5, M CHC 31.6 L, RDW Std Deviation 57.1 H, RDW Coeff of Slava 17.4 H, Plt Count 179, MPV 12.0, Immature Gran % (Auto) 1.000 H, Neut % (Auto) 78.0 H, Lymph % (Auto) 11.3 L, [place] % (Auto) 7.9, Eos % (Auto) 1.1, Baso % (Auto) 0.7, Absolute Neuts (auto) 9.0 H, Absolute Lymphs (auto) 1.30, Nucleated RBC % 0, Sodium 142, Potassium 5.1, Chloride 109 H, Carbon Dioxide 18.2 L, Anion Gap 15, BUN 44 H, C reatinine 1.75 H, Estim Creat Clear Calc 23.14 L, Est GFR (MDRD) Non-Af 29 L, B UN/Creatinine Ratio 25.3 H, Glucose 123 H, Calcium 9.5, Magnesium 2.3 H, T roponin T High Sens 130 H* D, [place] BNP II > 12744 H 02/13/25 16:30: Troponin T Hi Sens 2 Hr 124 H* 02/13/25 18:57: Troponin T Hi Sens 4Hr 125 H* Radiography Diagnostic Testing: Radiology Impression Chest X-Ray 02/13/25 14:24 IMPRESSION: Unchanged minimal bilateral pleural effusions. Associated passive atelectatic airspace disease of the lower lobes. Exaggerated kyphosis, unchanged. Mild chronic compression deformities of the lower thoracic vertebral bodies, unchanged. Enlarged cardiac silhouette. Reading Location: [facility] Physical Exam Narrative POCUS: indication is CHF. IVC dilated at greater than 2cm, minimal collapsibility with respirations. Noted small plerual effusions. Const alert and no apparent distress HEENT head/scalp atraumatic and moist oral mucous membranes Resp normal respiratory effort and no retractions Resp Narrative: bibasilar crackles. Cardio regular rate and regular rhythm GI normal to inspection, nondistended, normoactive bowel sounds, soft to palpation, non-tender and non-distended Extremity normal to inspection, full ROM and no clubbing, cyanosis or edema Assessment & Plan Assessment/Plan (1) Acute exacerbation of chronic heart failure: PLAN: Plan Acute HFrEF * EF 15% from echo on 12/27/2024. * on IV furosemide. fluid restriction. daily weights. * continue metoprolol succinate. No ACEi/ARB given CKD * cards consult NSTEMI * type II given acute CHF exacerbation. * had LHC on 08/05/2024 that showed minimal irregularities Chronic conditions: * Valvular Heart Disease: s/p TAVR 10/2024, 12/27/2024 echocardiogram with LV moderately dilated, EF 15%, LV function severely reduced, grade 3 diastolic dysfunction, global hypokinesis, Edward JUSTIN 3 ultra bioprosthetic AV size 23 mm present, normal prosthetic valve function, moderate-severe mitral regurgitation with no significant change from previous 11/03/2024 echocardiogram. * Chronic Kidney Disease Stage III, unclear subtype or GFR trend: Admission BUN/Cr 44/1.75, GFR 29, usually GFR consistent with stage III, baseline renal function 1.5-1.8, repeat BMP in AM. 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 Consider stress-dose steroids if condition deteriorates. 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 Following with nephrology outpatient, encourage follow-up as previously arranged. * History NSVT: Will continue patient home metoprolol * History of VTE: Patient with history of DVT, PE 07/2024, will continue apixaban * Hypertension: Continue home regimen including metoprolol, IV Lasix as noted, PRN hydralazine. * Hyperlipidemia: Continue home statin regimen. AM FLP. DVT prophylaxis: not indicates as already anticoagulated. CODE status: DNR-CCA, no intubation. Charges/Coding Visit Charges Inpatient E&M: 28211 Subs Hosp L2
[2025-02-14 08:16] LABS: Hematocrit 44.2 % (37-47); Hemoglobin 14.0 g/dL (12.0-15.0); Immature Granulocytes Count 0.060 X10^3/uL (0.0-0.0); Mean Corp Hgb Conc 31.7 g/dL (32-36); Mean Corpuscular Volume 89.3 fL (81-99); Mean Platelet Vol. 12.2 fl (6.2-12.0); NRBC Flagged by Analyzer 0 % (0-5); Platelet Count 178 K/mm3 (150-450); RBC Distribution Width CV 17.3 % (11.6-14.6); RBC Distribution Width SD 55.5 fl (35.1-43.9); Red Blood Count 4.95 M/mm3 (4.2-5.4); White Blood Count 6.8 K/mm3 (4.4-11.0)
[2025-02-14 09:04] LABS: AST(SGOT) 35 U/L (<=31); Alanine Aminotransfer ALT/SGPT 56 U/L (<=34); Albumin, Serum 3.8 g/dL (3.4-4.8); Alkaline Phosphatase 93 U/L (35-104); Anion Gap 14 (7-18); BUN 44 mg/dL (4-19); BUN/Creat Ratio 24.5 RATIO (10-20); Calcium,Total 9.6 mg/dL (7.6-11.0); Carbon Dioxide 21.1 mmol/L (20.0-29.0); Chloride 107 mmol/L (96-106); Cholesterol 144 mg/dL (<=200); Estimated Creatinine Clearance 22.00 ml/min (50-250); Globulin 2.1 g/dL (2.2-4.2); Glucose 95 mg/dL (70-99); Low Density Lipoprotein Calc. 73 mg/dL; Potassium 4.5 mmol/L (3.5-5.1); Triglycerides 120 mg/dL; Very Low Density Lipoprotein 24 mg/dL (5-40); cholesterol:hdl ratio screen 2.90
--- NOTE | 2025-02-14 09:16 | PCM.CONS.C ---
Assessment & Plan Assessment/Plan (1) Acute on chronic combined systolic and diastolic CHF, NYHA class 3: PLAN: ? Unsure of etiology for exacerbation. Patient does report improvement of shortness of breath with IV Lasix. ? At this point continue IV Lasix for another 24 hours however will need to transition to p.o. diuretics likely tomorrow. ? Monitor renal function and electrolytes closely. Goal potassium greater than 4.0 and magnesium greater than 2.0. ? Continue guideline directed medical therapy with metoprolol succinate 50 mg daily, will start patient on losartan 25 mg daily, and spironolactone 25 mg daily. 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 Patient with what appears to be frequent admissions. High risk for recurrent admissions related to multiple comorbidities and advanced disease. (2) NSTEMI (non-ST elevated myocardial infarction): PLAN: ? Cardiac troponin noted to be mildly elevated. Likely type II NSTEMI related to CHF exacerbation. Recent left heart catheterization with reported normal coronaries ? No need for heparin drip. Continue patient on her baseline Eliquis and monitor ? No plans for ischemic evaluation. (3) Severe aortic stenosis: PLAN: ? Status post TAVR earlier this year. Recent echocardiogram with normal function ? Continue current treatment (4) Moderate mitral valve regurgitation: PLAN: ? Noted on recent echocardiogram. Continue current management and treatment of cardiomyopathy. Hopefully some improvement will be noted ? No need for interventions (5) Moderate tricuspid valve regurgitation: PLAN: ? Noted to be moderate to severe on most recent echocardiogram ? Unsure if patient would be a candidate for Tri clip. Can be reevaluated and discussed as an outpatient. (6) Moderate pulmonary hypertension: PLAN: ? Recent echocardiogram with elevated RVSP. Suspect pulmonary hypertension is WHO class II related to underlying cardiovascular issues and valvular heart disease ? Treat underlying disorders and monitor. (7) Chronic kidney disease, stage 3b: PLAN: ? Serum creatinine appears to be close to baseline but mildly elevated. Recent admission serum creatinine of 1.5-1.7 currently at 1.81 ? Will need to monitor renal function closely. With addition of losartan and spironolactone along with diuresis ? Reevaluate labs tomorrow. As noted above likely transition to p.o. diuretics tomorrow. ? Avoid nephrotoxic medications and treatments (8) NSVT (nonsustained ventricular tachycardia): PLAN: ? Prior history of this. Continue on beta-debo along with monitoring and correction of electrolytes with goal potassium greater than 4.0 and magnesium greater than 2.0 (9) Essential (primary) hypertension: PLAN: ? Blood pressure currently with good control and at times borderline low ? Monitor closely. Goal blood pressure less than 150/90 (10) Hyperlipidemia: QUALIFIERS: Hyperlipidemia type: unspecified Qualified Code(s): E78.5 - Hyperlipidemia, unspecified PLAN: ? Recommend continuation of current medications along with aggressive lifestyle/risk factor modification (11) History of pulmonary embolism: PLAN: ? Recommend continuation of Eliquis 2.5 mg twice daily PLAN: Plan ? Suspect patient with a mild exacerbation of CHF. Unsure of etiology. ? As noted above continuation of IV diuretics however quick transition to p.o. diuretics. ? Daily weights along with strict I's/O during admission ? Cardiology will follow however possible discharge in next 24 to 48 hours suspected. 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 She reports that her lower extreme edema has been fairly stable however she does note gaining weight with progression of her shortness of breath therefore [facility]. She states that throughout this time she has had baseline shortness of breath/dyspnea on exertion however it somewhat acutely worsened. In the Emergency Department some notes that patient had significant increase in weight as well as some concern for CHF exacerbation therefore admitted. It is noted that cardiac troponin was also noted to be mildly elevated however heart catheterization earlier this year showed normal coronaries and patient denies any chest pain. She reports some fatigue otherwise no concerning cardiovascular plaints or issues. During my evaluation this morning she reports improvement of her shortness of breath and no other concerning cardiovascular plaints or issues however she has not been active. 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 Orthostatic hypotension Chronic kidney disease, stage 3 Stanislaus disease Essential (primary) hypertension Hyperlipidemia Recurrent deep vein thrombosis (DVT) History of non-ST elevation myocardial infarction (NSTEMI) (04/2009) Pyelonephritis Cystocele with rectocele History of DVT (deep vein thrombosis) Hypotension Home Medications ?Medication ?Instructions ?Recorded ?Last Taken ?Type denosumab 60 mg/mL subcutaneous 60 mg subcut [id number] bone health 11/24/22 01/13/25 Rx syringe (Prolia) #1 mL nitroglycerin 0.4 mg sublingual 0.4 mg sublingual Q5-15M PRN 07/26/23 Unknown Rx tablet Cardiac/Chest Pain #25 tabs methenamine hippurate 1 gram tablet 1 g PO QHS 04/29/24 Unknown History simvastatin 20 mg tablet 20 mg PO QHS cholesterol #90 tabs 07/23/24 Unknown Rx ascorbic acid (vitamin C) 1,000 mg 1,000 mg PO QHS vitamin 08/07/24 Unknown History tablet hydrocortisone 10 mg tablet 10 mg PO TID inflammation #27 tabs 08/09/24 Unknown Rx metoprolol succinate 50 mg 50 mg PO BID blood pressure 02/11/25 Unknown History tablet,extended release 24 hr apixaban 5 mg tablet (Eliquis) 2.5 mg PO BID blood thinner 02/13/25 Unknown History furosemide 20 mg tablet 20 mg PO DAILY PRN weight gain 02/13/25 Unknown History Allergy/AdvReac Type Severity Reaction Status Date / Time ciprofloxacin (From Cipro) Allergy Rash Verified 02/13/25 13:53 Penicillins Allergy Rash Verified 02/13/25 13:53 Family History Father CVA (cerebral vascular accident) Mother Myocardial infarction, Onset Age: 87 Other History of DVT (deep vein thrombosis) [facility] (current) use of anticoagulants Surgical History 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) History of left heart catheterization (04/2009) History of left nephrectomy (2000) History of total abdominal hysterectomy History of bladder repair surgery H/O partial nephrectomy (2009) H/O total cystectomy Social History Smoking Status: Never smoker alcohol intake: never substance use type: does not use caffeine: Yes what type of physical activity do you participate in: walking seatbelt use: always do you feel safe at home: Yes additional social history: [place]- Retired patient is retired ROS ROS Narrative 12 systems reviewed and negative unless stated above Physical Exam Const alert, oriented x3 and no apparent distress Orientation / Consciousness: awake HEENT normocephalic Eyes PERRL Neck no carotid bruits Resp normal respiratory effort and clear to auscultation bilaterally Resp Narrative: Decreased breath sounds no wheezes, rales, or rhonchi appreciated Cardio regular rate and regular rhythm Cardio Narrative: Not able to appreciate any significant murmurs, rubs, or gallops GI normal to inspection, nondistended, normoactive bowel sounds, soft to palpation and non-tender Extremity no clubbing, cyanosis or edema Skin no rashes or lesions noted Neuro Neuro Narrative: Patient moves all extremities and sensation appears to be intact Psych Psych Narrative: Normal mood and affect Charges/Coding Visit Charges Inpatient E&M: 13722 Init Hosp L3 Objective Data Vital Signs: Vital Signs Temp Pulse Resp BP Pulse Ox O2 Del Method 96.5 F L 89 16 113/91 H 96 Room Air 02/14/25 04:00 02/14/25 04:00 02/14/25 04:00 02/14/25 04:00 02/14/25 04:00 02/14/25 08:43 Oxygen Delivery Method Room Air Weight: 149 lb 7.574 oz Body Mass Index (BMI) 27.3 Intake & Output: Intake and Output for Last 24 Hours 02/12/25 02/13/25 02/14/25 23:59 23:59 23:59 Output Total 650 / 650 250 / 250 Balance -650 / -650 -250 / -250 Lab / Micro Data Attestation: I reviewed the patient's lab results. Lab results narrative: Labs reviewed and pertinent results discussed with the patient 02/14/25 07:37 02/14/25 07:37 Labs: Laboratory Results - last 24 hr 02/13/25 14:44: WBC 11.5 H, RBC 4.78, Hgb 13.6, Hct 43.0, MCV 90.0, MCH 28.5, MCHC 31.6 L, RDW Std Deviation 57.1 H, RDW Coeff of Slava 17.4 H, Plt Count 179, MPV 12.0, Immature Gran % (Auto) 1.000 H, Neut % (Auto) 78.0 H, Lymph % (Auto) 11.3 L, [place] % (Auto) 7.9, Eos % (Auto) 1.1, Baso % (Auto) 0.7, Absolute Neuts (auto) 9.0 H, Absolute Lymphs (auto) 1.30, Nucleated RBC % 0, Sodium 142, Potassium 5.1, Chloride 109 H, Carbon Dioxide 18.2 L, Anion Gap 15, BUN 44 H, Creatinine 1.75 H, Estim Creat Clear Calc 23.14 L, Est GFR (MDRD) Non-Af 29 L, BUN/Creatinine Ratio 25.3 H, Glucose 123 H, Calcium 9.5, Magnesium 2.3 H, Troponin T High Sens 130 H* D, NT pro BNP II > 20005 H 02/13/25 16:30: Troponin T Hi Sens 2 Hr 124 H* 02/13/25 18:57: Troponin T Hi Sens 4Hr 125 H* 02/14/25 07:37: WBC 6.8, RBC 4.95, Hgb 14.0, Hct 44.2, MCV 89.3, MCH 28.3, MCHC 31.7 L, RDW Std Deviation 55.5 H, RDW Coeff of Slava 17.3 H, Plt Count 178, MPV 12.2 H, Immature Gran % (Auto) 0.900, Neut % (Auto) 58.6, Lymph % (Auto) 24.3, [place] % (Auto) 12.4 H, Eos % (Auto) 2.8, Baso % (Auto) 1.0, Absolute Neuts (auto) 4.0, Absolute Lymphs (auto) 1.65, Nucleated RBC % 0, Sodium 142, Potassium 4.5, Chloride 107 H, Carbon Dioxide 21.1, Anion Gap 14, BUN 44 H, Creatinine 1.81 H, Estim Creat Clear Calc 22.00 L, Est GFR (MDRD) Non-Af 28 L, BUN/Creatinine Ratio 24.5 H, Glucose 95, Calcium 9.6, Total Bilirubin 1.09, AST 35 H, ALT 56 H, Alkaline Phosphatase 93, Total Protein 5.9, Albumin 3.8, Globulin 2.1 L, Albumin/Globulin Ratio 1.8, Triglycerides 120, Cholesterol 144, LDL Cholesterol, Calc 73, VLDL Cholesterol 24, HDL Cholesterol 50, Cholesterol/HDL Ratio 2.90, TSH 0.955 Rhythm Strip Rhythm Strip: Sinus Rhythm (Mostly normal sinus rhythm some episodes of PVCs also a few short runs of nonsustained ventricular tachycardia noted on telemetry) Cardiology Labs/Tests 02/13/25 14:44: WBC 11.5 H, RBC 4.78, Hgb 13.6, Hct 43.0, MCV 90.0, MCH 28.5, MCHC 31.6 L, Plt Count 179, MPV 12.0, Immature Gran % (Auto) 1.000 H, Neut % (Auto) 78.0 H, Lymph % (Auto) 11.3 L, [place] % (Auto) 7.9, Eos % (Auto) 1.1, Baso % (Auto) 0.7, Absolute Neuts (auto) 9.0 H, Nucleated RBC % 0, Sodium 142, Potassium 5.1, Chloride 109 H, Carbon Dioxide 18.2 L, Anion Gap 15, BUN 44 H, Creatinine 1.75 H, Est GFR (MDRD) Non-Af 29 L, BUN/Creatinine Ratio 25.3 H, Glucose 123 H, Calcium 9.5, Magnesium 2.3 H 02/14/25 07:37: WBC 6.8, RBC 4.95, Hgb 14.0, Hct 44.2, MCV 89.3, MCH 28.3, MCHC 31.7 L, Plt Count 178, MPV 12.2 H, Immature Gran % (Auto) 0.900, Neut % (Auto) 58.6, Lymph % (Auto) 24.3, [place] % (Auto) 12.4 H, Eos % (Auto) 2.8, Baso % (Auto) 1.0, Absolute Neuts (auto) 4.0, Nucleated RBC % 0, Sodium 142, Potassium 4.5, Chloride 107 H, Carbon Dioxide 21.1, Anion Gap 14, BUN 44 H, Creatinine 1.81 H, Est GFR (MDRD) Non-Af 28 L, BUN/Creatinine Ratio 24.5 H, Glucose 95, Calcium 9.6, Total Bilirubin 1.09, Triglycerides 120, Cholesterol 144, VLDL Cholesterol 24, HDL Cholesterol 50, Cholesterol/HDL Ratio 2.90 Rhythm: EKG: ECHO: Stress Test: Cardiac Cath: PCI: CT Surgery: Holter monitor: EPS: PPM: CXR: Chest CT Scan: Radiography Diagnostic Testing: Radiology Impression Chest X-Ray 02/13/25 14:24 IMPRESSION: Unchanged minimal bilateral pleural effusions. Associated passive atelectatic airspace disease of the lower lobes. Exaggerated kyphosis, unchanged. Mild chronic compression deformities of the lower thoracic vertebral bodies, unchanged. Enlarged cardiac silhouette. Reading Location: [facility] [place] Risk Score for UA/STEMI Assesmment (YES = 1) Risk Stratification Applicable: Yes Age > or = 65: Yes > or = 3 CAD risk factors (HTN, Hypercholesterolemia, Diabetes, family hx, current smoker): Yes Known CAD (Stenosis > or = 50%): No ASA used in past 7 days: No Severe angina (> or = 2 episodes in 24 hrs): No EKG ST change > or = 0.5mm: No Positive cardiac markers: Yes Score [place] Risk Score of mortality/ recurrent ischemic event over the next 14 days: 3 = 13.2% Intermediate Risk
[2025-02-14 09:30] VITALS: BP 110/92; PULSE 95; RESP 17; TEMP 36.5; O2SAT 98
[2025-02-14] MEDS: 0.9% Saline Lock 10 ML Syringe IV ×2 (09:40→17:47)
[2025-02-14 09:41] VITALS: PULSE 95
[2025-02-14] MEDS: Metoprolol(XL)Succ 50 MG Tablet PO (09:41)
[2025-02-14] MEDS: APIXABAN 2.5 MG TABLET (WCH) PO ×2 (09:41→21:23)
--- NOTE | 2025-02-14 14:20 | CASEMGMT ---
RN DARSHANA hospice rn CM to room to meet with patient for initial transition planning/care coordination assessment. RN DARSHANA introduced self and role at [facility], pt voices understanding. Pt is A&O, sitting up in chair. Daughters, Lisa @ [employer], and [facility]AS all in room visiting. Pt gave permission for them to be present during assessment. Care providers, pharmacy, and demographics verified. Strata: 3 PCP: Dr Fulton Specialists: Dr Tarango (Nephro), Dr Strickland (Endocrinology [facility]), [facility]/cardiology, Dr Swartz (Urology). Dr Adorno, HF specialist @ [facility]. Pt also sees a cardiac surgeon @ [facility]/CC. Cardiac Rehab: Pt active @ [facility] Cardiac Rehab and wishes to resume @ discharge. Preferred Pharmacy: [facility] Insurance: [facility] Prescription Benefit: Yes LNOK: Lisa (Daughter), Fide (Daughter). Son. Living Arrangements: Pt lives alone in a one-story home with a ramp entrance. Independent w/ADL's and IADL's. Her daughters are supportive and come to do yard work or laundry sometimes d/t washer/dryer are in the basement. Transportation: Self, daughters. Denies concerns DME: Shower chair, Cane, FWW, Grab bars, pulse ox. Pt states she only uses the cane and FWW at times. No home O2. Discussed home O2 set-up process should she qualify for home O2 @ discharge. Pt chose [employer]. HHC/SNF: Hx with [facility] HH and [facility] and [address] CCN: Daughter states pt sometimes forgets to take her blood pressure or daily weight. Pt states she tries to remember, but then gets distracted. She states she does well w/remembering her medications. ROSS GILLILAND inquired if she has a good understanding of CHF and what her medications are for that she takes. She states she will often ask her daughter stating she forgets what they are for sometimes. Discussed CCN w/pt and family. They are not interested at this time, but states may be in the future. Provided w/CCN Rac Card. Palliative Care: EF 15-20% this admission. Broached topic of Palliative Care and info provided as well as list of local Palliative Agencies. They state they will review the info but not interested in referral at this time. They were made aware to discuss this w/PCP if they have questions or are interested in a a referral. Pt wishes to return home and states has no concerns with going home at time of discharge. She declines wanting HHC or OP therapy. PLAN:??Home w/resumption of Cardiac Rehab @ [facility]. Follow for possible O2 @ dc. See DC readiness checklist. ? Tanya BSN?RN?CM
[2025-02-14 15:16] VITALS: BP 120/94; PULSE 94; RESP 17; TEMP 36.5; O2SAT 98
[2025-02-14 21:19] VITALS: BP 102/88; PULSE 94; RESP 16; TEMP 36.6; O2SAT 97
[2025-02-15 03:15] VITALS: BP 94/66; PULSE 67; RESP 16; TEMP 36.9; O2SAT 95
[2025-02-15 05:56] VITALS: BMI 25.9
[2025-02-15 07:10] VITALS: O2SAT 95
[2025-02-15 07:11] LABS: AST(SGOT) 27 U/L (<=31); Alanine Aminotransfer ALT/SGPT 48 U/L (<=34); Albumin, Serum 3.7 g/dL (3.4-4.8); Alkaline Phosphatase 91 U/L (35-104); Anion Gap 13 (7-18); BUN 50 mg/dL (4-19); BUN/Creat Ratio 22.9 RATIO (10-20); Calcium,Total 9.7 mg/dL (7.6-11.0); Carbon Dioxide 26.1 mmol/L (20.0-29.0); Chloride 103 mmol/L (96-106); Estimated Creatinine Clearance 17.93 ml/min (50-250); Globulin 2.1 g/dL (2.2-4.2); Glucose 94 mg/dL (70-99); Magnesium 2.2 mg/dL (1.5-2.2); Potassium 4.1 mmol/L (3.5-5.1)
[2025-02-15 08:53] VITALS: PULSE 88
[2025-02-15] MEDS: APIXABAN 2.5 MG TABLET (WCH) PO ×2 (08:53→20:27)
[2025-02-15] MEDS: Metoprolol(XL)Succ 50 MG Tablet PO (08:53)
[2025-02-15 09:00] VITALS: BP 114/82; PULSE 88; RESP 15; TEMP 36.4; O2SAT 98
--- NOTE | 2025-02-15 09:41 | PCM.PN.CARD ---
Subjective Subjective Patient seen and examined reports doing well resolution of shortness of breath/dyspnea on exertion. She reports she was able to get up and walk to the restroom with no significant limitations. Overall tolerating medications however long discussion with patient that renal function has declined. Overall hemodynamically stable. Objective Data Vital Signs: Vital Signs Temp Pulse Resp BP Pulse Ox O2 Del Method 97.6 F L 88 15 114/82 H 98 Room Air 02/15/25 09:00 02/15/25 09:00 02/15/25 09:00 02/15/25 09:00 02/15/25 09:00 02/15/25 09:00 Oxygen Delivery Method Room Air Weight: 142 lb 3.17 oz Body Mass Index (BMI) 25.9 Intake & Output: Intake and Output for Last 24 Hours 02/13/25 02/14/25 02/15/25 23:59 23:59 23:59 Intake Total 440 / 440 Output Total 650 / 650 1100 / 1100 Balance -650 / -650 -660 / -660 Lab / Micro Data Attestation: I reviewed the patient's lab results. 02/14/25 07:37 02/15/25 06:22 Labs: Laboratory Results - last 24 hr 02/15/25 06:22: Sodium 142, Potassium 4.1, Chloride 103, Carbon Dioxide 26.1, Anion Gap 13, BUN 50 H, Creatinine 2.17 H, Estim Creat Clear Calc 17.93 L, Est GFR (MDRD) Non-Af 22 L, BUN/Creatinine Ratio 22.9 H, Glucose 94, Calcium 9.7, Magnesium 2.2, Total Bilirubin 0.97, AST 27, ALT 48 H, Alkaline Phosphatase 91, Total Protein 5.8 L, Albumin 3.7, Globulin 2.1 L, Albumin/Globulin Ratio 1.8 Rhythm Strip Rhythm Strip: Sinus Rhythm (Mostly normal sinus rhythm some episodes of PVCs also continues to have runs of nonsustained ventricular tachycardia noted on telemetry) Cardiology Labs/Tests 02/15/25 06:22: Sodium 142, Potassium 4.1, Chloride 103, Carbon Dioxide 26.1, Anion Gap 13, BUN 50 H, Creatinine 2.17 H, Est GFR (MDRD) Non-Af 22 L, BUN/Creatinine Ratio 22.9 H, Glucose 94, Calcium 9.7, Magnesium 2.2, Total Bilirubin 0.97 Rhythm: EKG: ECHO: Stress Test: Cardiac Cath: PCI: CT Surgery: Holter monitor: EPS: PPM: CXR: Chest CT Scan: Radiography Diagnostic Testing: Radiology Impression Echocardiogram 02/14/25 05:55 Interpretation Summary The estimated ejection fraction is 15-20 %. Mild (1+) mitral valve insufficiency. Moderate-Severe (3+) tricuspid valve insufficiency. Right ventricular systolic pressure estimated to be 35-40 mmHg. Mild pulmonary hypertension. Normal sized IVC that collapses with respiration/sniff. Compared to prior study, there is no significant change. Ordering Physician: Karin Fontaine Referring Physician: MD Nixon Fulton Performed By: Bianka Ta RCS Physical Exam Const alert and no apparent distress Orientation / Consciousness: awake Resp normal respiratory effort and clear to auscultation bilaterally Resp Narrative: Decreased breath sounds with no wheezes, rales, or rhonchi Cardio regular rate and regular rhythm Cardio Narrative: Not able to appreciate any significant murmurs, rubs, or gallops GI normal to inspection, nondistended, normoactive bowel sounds and soft to palpation Extremity normal to inspection and no clubbing, cyanosis or edema Neuro Neuro Narrative: Moves all extremities Psych Psych Narrative: Normal mood and affect Assessment & Plan Assessment/Plan (1) Acute on chronic combined systolic and diastolic CHF, NYHA class 3: PLAN: ? Patient currently appears to be euvolemic and shortness of breath has improved. ? Renal function has declined with serum creatinine of 2.1 up from 1.8 yesterday. ? Discontinue IV diuretics. For now continue GDMT with Toprol 50 mg daily, losartan 25 mg daily, and spironolactone 25 mg daily. Would hold off on SGLT2 inhibitor for now with decline in renal function ? Monitor renal function and electrolytes closely. Goal potassium greater than 4.0 and magnesium greater than 2.0. ? Consideration for maintain an admission overnight and reevaluation of renal function tomorrow to make sure it has stabilized or started to improve. ? If patient remains admitted cardiology will reevaluate tomorrow. (2) NSTEMI (non-ST elevated myocardial infarction): PLAN: ? Cardiac troponin noted to be mildly elevated. Likely type II NSTEMI related to CHF exacerbation. Recent left heart catheterization with reported normal coronaries ? No need for heparin drip. Continue patient on her baseline Eliquis and monitor ? No plans for ischemic evaluation. (3) Severe aortic stenosis: PLAN: ? Status post TAVR earlier this year. Echocardiogram overall appears to show normal function however extensive evaluation was not completed ? Continue current treatment (4) Moderate mitral valve regurgitation: PLAN: ? Stable moderate MR and moderate to severe TR on echocardiogram 02/14/2025 ? Valvular heart disease could be potentially contributing to recurrent exacerbation of heart failure. Recommend further evaluation by structural heart team (5) Moderate tricuspid valve regurgitation: PLAN: ? Overall stable estimated at moderate to severe on echocardiogram yesterday ? Unsure if patient would be a candidate for Tri clip. Can be reevaluated and discussed as an outpatient. (6) Moderate pulmonary hypertension: PLAN: ? Mild on echocardiogram yesterday. 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 Continue current treatment and manage underlying disorders. (7) Chronic kidney disease, stage 3b: PLAN: ? Serum creatinine up to 2.17 from 1.81. Currently considered acute on chronic kidney disease. ? As noted above discontinuing IV diuretics. Continue current medications for now however if renal function continues to decline we will need to consider holding spironolactone and losartan ? As noted above consider maintain an admission overnight and reevaluation of her renal function in the morning. If renal function further declines can consider consult to nephrology ? Avoid nephrotoxic medications and treatments (8) NSVT (nonsustained ventricular tachycardia): PLAN: ? Continues to have recurrent episodes. ? Continue on beta-debo along with monitoring and correction of electrolytes with goal potassium greater than 4.0 and magnesium greater than 2.0 (9) Essential (primary) hypertension: PLAN: ? Blood pressure currently with good control and at times borderline low ? Monitor closely. Goal blood pressure less than 150/90 (10) Hyperlipidemia: QUALIFIERS: Hyperlipidemia type: unspecified Qualified Code(s): E78.5 - Hyperlipidemia, unspecified PLAN: ? Recommend continuation of current medications along with aggressive lifestyle/risk factor modification (11) History of pulmonary embolism: PLAN: ? Recommend continuation of Eliquis 2.5 mg twice daily PLAN: Plan ? Hold IV diuretics. Continue current medications otherwise ? Reevaluation of renal function tomorrow with further recommendations ? If patient maintains admission cardiology will reevaluate tomorrow. Charges/Coding Visit Charges Inpatient E&M: 56310 [facility] Hosp L3
--- NOTE | 2025-02-15 14:10 | PN.HOSP_ITS ---
Reason for Visit Chief Complaint: Dyspnea, orthopnea. Subjective Subjective Feeling well. No events overnight. Objective Data Objective Data Vital Signs: Vital Signs Temp Pulse Resp BP Pulse Ox O2 Del Method 36.4 C L 88 15 114/82 H 98 Room Air 02/15/25 09:00 02/15/25 09:00 02/15/25 09:00 02/15/25 09:00 02/15/25 09:00 02/15/25 09:00 Oxygen Delivery Method Room Air Weight: 64.5 kg Body Mass Index (BMI) 25.9 Intake & Output: Intake and Output for Last 24 Hours 02/13/25 02/14/25 02/15/25 23:59 23:59 23:59 Intake Total 440 / 440 Output Total 650 / 650 1100 / 1100 Balance -650 / -650 -660 / -660 Lab / Micro Data 02/14/25 07:37 02/15/25 06:22 Labs: Laboratory Results - last 24 hr 02/15/25 06:22: Sodium 142, Potassium 4.1, Chloride 103, Carbon Dioxide 26.1, Anion Gap 13, BUN 50 H, Creatinine 2.17 H, Estim Creat Clear Calc 17.93 L, Est GFR (MDRD) Non-Af 22 L, BUN/Creatinine Ratio 22.9 H, Glucose 94, Calcium 9.7, Magnesium 2.2, Total Bilirubin 0.97, AST 27, ALT 48 H, Alkaline Phosphatase 91, Total Protein 5.8 L, Albumin 3.7, Globulin 2.1 L, Albumin/Globulin Ratio 1.8 Rhythm Strip Rhythm Strip: Sinus Rhythm (Mostly normal sinus rhythm some episodes of PVCs also continues to have runs of nonsustained ventricular tachycardia noted on telemetry) Physical Exam Const alert and no apparent distress HEENT head/scalp atraumatic and moist oral mucous membranes Resp normal respiratory effort, no retractions, no use of accessory muscles and clear to auscultation bilaterally Cardio regular rate, regular rhythm, S1 normal heart sound and S2 normal heart sound GI normal to inspection, nondistended, normoactive bowel sounds, soft to palpation, non-tender and non-distended Extremity normal to inspection, full ROM and no clubbing, cyanosis or edema Assessment & Plan Assessment/Plan (1) Acute exacerbation of chronic heart failure: PLAN: Plan Acute HFrEF * EF 15% from echo on 12/27/2024. * fluid restriction. daily weights. * continue metoprolol succinate. No ACEi/ARB given CKD * cards consult NSTEMI * type II given acute CHF exacerbation. * had LHC on 08/05/2024 that showed minimal irregularities ANGELA * likely iatrogenic. hold potentiating agents. * monitor. NSVT: * intermittent. Patient had a recent event monitor. Family to provide the report for us to review. * at this point of time, monitoring Chronic conditions: * Valvular Heart Disease: s/p TAVR 10/2024, 12/27/2024 echocardiogram with LV moderately dilated, EF 15%, LV function severely reduced, grade 3 diastolic dysfunction, global hypokinesis, Edward JUSTIN 3 ultra bioprosthetic AV size 23 mm present, normal prosthetic valve function, moderate-severe mitral regurgitation with no significant change from previous 11/03/2024 echocardiogram. * Chronic Kidney Disease Stage III, unclear subtype or GFR trend: Admission BUN/Cr 44/1.75, GFR 29, usually GFR consistent with stage III, baseline renal function 1.5-1.8, repeat BMP in AM. 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 Consider stress-dose steroids if condition deteriorates. 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 Following with nephrology outpatient, encourage follow-up as previously arranged. * History NSVT: Will continue patient home metoprolol * History of VTE: Patient with history of DVT, PE 07/2024, will continue apixaban * Hypertension: Continue home regimen including metoprolol, IV Lasix as noted, PRN hydralazine. * Hyperlipidemia: Continue home statin regimen. AM FLP. DVT prophylaxis: not indicates as already anticoagulated. CODE status: DNR-CCA, no intubation. DW family at bedside. Charges/Coding Visit Charges Inpatient E&M: 24554 Subs Hosp L2
[2025-02-15 19:00] VITALS: PULSE 103
[2025-02-15 21:12] VITALS: BP 112/89; PULSE 95; RESP 18; TEMP 36.8; O2SAT 98
[2025-02-16 03:14] VITALS: BP 114/84; PULSE 92; RESP 16; TEMP 36.6; O2SAT 96
[2025-02-16 05:50] VITALS: BMI 26.1
[2025-02-16 08:43] VITALS: PULSE 68
[2025-02-16] MEDS: APIXABAN 2.5 MG TABLET (WCH) PO (08:43)
[2025-02-16] MEDS: Metoprolol(XL)Succ 50 MG Tablet PO (08:43)
[2025-02-16 08:49] VITALS: BP 112/88; PULSE 68; RESP 15; TEMP 36.2; O2SAT 97
[2025-02-16 09:26] LABS: Anion Gap 12 (7-18); BUN 53 mg/dL (4-19); BUN/Creat Ratio 29.6 RATIO (10-20); Calcium,Total 9.5 mg/dL (7.6-11.0); Carbon Dioxide 22.9 mmol/L (20.0-29.0); Chloride 107 mmol/L (96-106); Estimated Creatinine Clearance 21.91 ml/min (50-250); Glucose 85 mg/dL (70-99); Potassium 4.4 mmol/L (3.5-5.1)
--- NOTE | 2025-02-16 10:23 | PN.CARD_ITS ---
Subjective Subjective Patient seen and examined continues to report feeling well with no concerning cardiovascular plaints or issues. Overall resolution of shortness of breath/dyspnea on exertion. Overall hemodynamically stable with normal sinus rhythm still having short runs of nonsustained ventricular tachycardia on telemetry. Objective Data Vital Signs: Vital Signs Temp Pulse Resp BP Pulse Ox O2 Del Method 97.1 F L 68 15 112/88 H 97 Room Air 02/16/25 08:49 02/16/25 08:49 02/16/25 08:49 02/16/25 08:49 02/16/25 08:49 02/16/25 08:49 Oxygen Delivery Method Room Air Weight: 142 lb 13.753 oz Body Mass Index (BMI) 26.1 Intake & Output: Intake and Output for Last 24 Hours 02/14/25 02/15/25 02/16/25 23:59 23:59 23:59 Intake Total 440 / 440 600 / 750 150 / 150 Output Total 1100 / 1100 Balance -660 / -660 600 / 750 150 / 150 Lab / Micro Data Attestation: I reviewed the patient's lab results. 02/14/25 07:37 02/16/25 08:58 Labs: Laboratory Results - last 24 hr 02/16/25 08:58: Sodium 142, Potassium 4.4, Chloride 107 H, Carbon Dioxide 22.9, Anion Gap 12, BUN 53 H, Creatinine 1.78 H, Estim Creat Clear Calc 21.91 L, Est GFR (MDRD) Non-Af 28 L, BUN/Creatinine Ratio 29.6 H, Glucose 85, Calcium 9.5 Rhythm Strip Rhythm Strip: Sinus Rhythm (Mostly normal sinus rhythm some episodes of PVCs also continues to have runs of nonsustained ventricular tachycardia noted on telemetry) Cardiology Labs/Tests 02/16/25 08:58: Sodium 142, Potassium 4.4, Chloride 107 H, Carbon Dioxide 22.9, Anion Gap 12, BUN 53 H, Creatinine 1.78 H, Est GFR (MDRD) Non-Af 28 L, B UN/Creatinine Ratio 29.6 H, Glucose 85, Calcium 9.5 Rhythm: EKG: ECHO: Stress Test: Cardiac Cath: PCI: CT Surgery: Holter monitor: EPS: PPM: CXR: Chest CT Scan: Physical Exam Const alert and no apparent distress Orientation / Consciousness: awake Resp normal respiratory effort and clear to auscultation bilaterally Resp Narrative: Decreased breath sounds with no wheezes, rales, or rhonchi Cardio regular rate and regular rhythm Cardio Narrative: Not able to appreciate any significant murmurs, rubs, or gallops GI normal to inspection, nondistended, normoactive bowel sounds and soft to palpation Extremity normal to inspection and no clubbing, cyanosis or edema Neuro Neuro Narrative: Moves all extremities Psych Psych Narrative: Normal mood and affect Assessment & Plan Assessment/Plan (1) Acute on chronic combined systolic and diastolic CHF, NYHA class 3: PLAN: ? Patient currently appears to be euvolemic and shortness of breath has improved. ? Serum creatinine back to baseline noted to be 1.78 today. ? Patient overall okay for discharge from cardiology standpoint recommend continuation of GDMT with Toprol 50 mg daily, losartan 25 mg daily, and spironolactone 25 mg daily. Would hold off on SGLT2 inhibitor for now and consider starting as outpatient. ? Recommend discharge home with continued Lasix however increase dose to 40 mg daily. ? Monitor renal function and electrolytes closely. Goal potassium greater than 4.0 and magnesium greater than 2.0. ? Patient overall okay for discharge from cardiology standpoint. Recommend that she follow-up in office with her cardiology team as soon as possible as well as her PCP within 7 days in order to reduce her risk of readmission. ? With multiple comorbid conditions patient high risk for recurrent admissions. Cardiology will drop to standby. Please call with questions. (2) NSTEMI (non-ST elevated myocardial infarction): PLAN: ? Cardiac troponin noted to be mildly elevated. Likely type II NSTEMI related to CHF exacerbation. Recent left heart catheterization with reported normal coronaries ? No need for heparin drip. Continue patient on her baseline Eliquis and monitor ? No plans for ischemic evaluation. (3) Severe aortic stenosis: PLAN: ? Status post TAVR earlier this year. Echocardiogram overall appears to show normal function however extensive evaluation was not completed ? Continue current treatment (4) Moderate mitral valve regurgitation: PLAN: ? Stable moderate MR and moderate to severe TR on echocardiogram 02/14/2025 ? Valvular heart disease could be potentially contributing to recurrent exacerbation of heart failure. Recommend further evaluation by structural heart team (5) Moderate tricuspid valve regurgitation: PLAN: ? Overall stable estimated at moderate to severe on echocardiogram yesterday ? Unsure if patient would be a candidate for Tri clip. Can be reevaluated and discussed as an outpatient. (6) Moderate pulmonary hypertension: PLAN: ? Mild on echocardiogram. 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 Continue current treatment and manage underlying disorders. (7) Chronic kidney disease, stage 3b: PLAN: ? Serum creatinine back down to baseline noted to be 1.78 today. ? As noted above recommend continuation of current medications. Increase home Lasix dose to 40 mg daily. ? Advised patient to follow-up in office with her tool storage attendant after discharge for monitoring. ? Consideration for starting on SGLT2 inhibitor as an outpatient. ? Avoid nephrotoxic medications and treatments (8) NSVT (nonsustained ventricular tachycardia): PLAN: ? Continues to have recurrent episodes. ? Continue on beta-debo along with monitoring and correction of electrolytes with goal potassium greater than 4.0 and magnesium greater than 2.0 (9) Essential (primary) hypertension: PLAN: ? Blood pressure currently with good control and at times borderline low ? Monitor closely. Goal blood pressure less than 150/90 (10) Hyperlipidemia: QUALIFIERS: Hyperlipidemia type: unspecified Qualified Code(s): E 78.5 - Hyperlipidemia, unspecified PLAN: ? Recommend continuation of current medications along with aggressive lifestyle/risk factor modification (11) History of pulmonary embolism: PLAN: ? Recommend continuation of Eliquis 2.5 mg twice daily PLAN: Plan ? Patient overall okay for discharge from cardiology standpoint on current medications. Increase home Lasix dose to 40 mg daily. ? Follow-up in office with her progressive assembler and fitter, PCP, and tool storage attendant as soon as possible after discharge to help with avoiding readmissions. ? Cardiology will drop to standby. Please call with questions. Charges/Coding Visit Charges Inpatient E&M: 86892 Subs Hosp L2
--- NOTE | 2025-02-16 12:08 | DS.PCM_ITS ---
Providers Date of Admission: 02/13/25 Primary Care Physician: Dr. Amos Fulton MD Consultations 02/13/25 17:59 Consult: Cardiology Routine Consulting Provider: eRuben Lopez Reason for Consult: HF Exacerbation, recent TAVR w/ following reduced EF EMERGENT Consult: No MD Notified: Yes Date Notified: 02/13/25 Time Notified: 17:42 Method of Notification: Text Reason For Visit: HF EXACERBATION, ELEVATED TROP Diagnosis Discharge Diagnosis (1) Acute on chronic combined systolic and diastolic CHF, NYHA class 3: Status: Acute Code(s): I50.43 - Acute on chronic combined systolic (congestive) and diastolic (congestive) heart failure (2) NSTEMI (non-ST elevated myocardial infarction): Status: Acute Code(s): I21.4 - Non-ST elevation (NSTEMI) myocardial infarction (3) Severe aortic stenosis: Status: Acute Code(s): I35.0 - Nonrheumatic aortic (valve) stenosis (4) Moderate mitral valve regurgitation: Status: Acute Code(s): I34.0 - Nonrheumatic mitral (valve) insufficiency (5) Moderate tricuspid valve regurgitation: Status: Acute Code(s): I07.1 - Rheumatic tricuspid insufficiency (6) Moderate pulmonary hypertension: Status: Acute Code(s): I27.20 - Pulmonary hypertension, unspecified (7) Chronic kidney disease, stage 3b: Status: Acute Code(s): N18.32 - Chronic kidney disease, stage 3b (8) NSVT (nonsustained ventricular tachycardia): Status: Acute Code(s): I47.29 - Other ventricular tachycardia (9) Essential (primary) hypertension: Status: Chronic Code(s): I10 - Essential (primary) hypertension (10) Hyperlipidemia: Status: Chronic Code(s): E78.5 - Hyperlipidemia, unspecified Qualifiers: Hyperlipidemia type: unspecified Qualified Code(s): E78.5 - Hyperlipidemia, unspecified (11) History of pulmonary embolism: Status: Chronic Code(s): Z86.711 - Personal history of pulmonary embolism Plan Acute HFrEF * EF 15% from echo on 12/27/2024. * fluid restriction. daily weights. * continue metoprolol succinate. No ACEi/ARB given CKD * cards consult NSTEMI * type II given acute CHF exacerbation. * had C on 08/05/2024 that showed minimal irregularities ANGELA * likely iatrogenic. hold potentiating agents. * monitor. NSVT: * intermittent. Patient had a recent event monitor. Family to provide the report for us to review. * at this point of time, monitoring Chronic conditions: * Valvular Heart Disease: s/p TAVR 10/2024, 12/27/2024 echocardiogram with LV moderately dilated, EF 15%, LV function severely reduced, grade 3 diastolic dysfunction, global hypokinesis, Edward JUSTIN 3 ultra bioprosthetic AV size 23 mm present, normal prosthetic valve function, moderate-severe mitral regurgitation with no significant change from previous 11/03/2024 echocardiogram. * Chronic Kidney Disease Stage III, unclear subtype or GFR trend: Admission BUN/Cr 44/1.75, GFR 29, usually GFR consistent with stage III, baseline renal function 1.5-1.8, repeat BMP in AM. 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 Consider stress-dose steroids if condition deteriorates. 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 Following with nephrology outpatient, encourage follow-up as previously arranged. * History NSVT: Will continue patient home metoprolol * History of VTE: Patient with history of DVT, PE 07/2024, will continue apixaban * Hypertension: Continue home regimen including metoprolol, IV Lasix as noted, PRN hydralazine. * Hyperlipidemia: Continue home statin regimen. AM FLP. DVT prophylaxis: not indicates as already anticoagulated. CODE status: DNR-CCA, no intubation. DW family at bedside. Medications at Discharge Home Medications denosumab 60 mg/mL subcutaneous syringe (Prolia) 60 mg subcut [id number] bone Digital Performance #1 mL 11/24/22 nitroglycerin 0.4 mg sublingual tablet 0.4 mg sublingual Q5-15M PRN Cardiac/Chest Pain #25 tabs 07/26/23 methenamine hippurate 1 gram tablet 1 g PO QHS 04/29/24 simvastatin 20 mg tablet 20 mg PO QHS cholesterol #90 tabs 07/23/24 ascorbic acid (vitamin C) 1,000 mg tablet 1,000 mg PO QHS vitamin 08/07/24 hydrocortisone 10 mg tablet 10 mg PO TID inflammation #27 tabs 08/09/24 apixaban 5 mg tablet (Eliquis) 2.5 mg PO BID blood thinner 02/13/25 furosemide 20 mg tablet 20 mg PO DAILY weight gain #30 tabs 02/16/25 metoprolol succinate 50 mg tablet,extended release 24 hr 50 mg PO DAILY #30 tabs 02/16/25 Hospital Course Operations None Procedures 2-D Echocardiogram Weight / BMI Weight Weight: 64.8 kg Body Mass Index (BMI) 26.1 ABG / Lab / Microbiology Data 02/14/25 07:37 02/16/25 08:58 Laboratory: Laboratory Results - last 24 hr 02/16/25 08:58: Sodium 142, Potassium 4.4, Chloride 107 H, Carbon Dioxide 22.9, Anion Gap 12, BUN 53 H, Creatinine 1.78 H, Estim Creat Clear Calc 21.91 L, Est GFR (MDRD) Non-Af 28 L, BUN/Creatinine Ratio 29.6 H, Glucose 85, Calcium 9.5 D/C Instructions DC O2, CPAP, BIPAP Needs Home O2 Discharge instructions: No Meaningful Use Info Meaningful Use Meaningful Use Diagnoses (Choose all that apply): CHF CHF BIMAL/ARB ordered at discharge?: No Reason BIMAL/ARB not ordered?: Worsening renal disease Documented LVEF (%): 15 Discharge Plan Admission Admit Date/Time: 02/13/25 16:55 Primary Reason for Your Visit: CHF Attending Provider: Jairo Mitchell Primary Care Provider: Amos Fulton Consulting Providers: Reuben Lopez; Karin Fontaine Instructions Patient Instructions: Heart Failure Flare Up Signs, Heart Failure Make Changes Diet, Heart Failure Assessment, Heart Failure Post Hospital, Heart Failure and Physical Activity, Heart Failure Discharge Orders/Prescriptions Prescriptions: New metoprolol succinate 50 mg Tablet Extended Release 24 Hr 50 mg PO DAILY Qty: 30 0RF Continued Prolia 60 mg/mL syringe 60 mg subcut [id number] Qty: 1 1RF methenamine hippurate 1 gram tablet 1 g PO QHS nitroglycerin 0.4 mg tablet, sublingual 0.4 mg SUBLINGUAL Q5-15M PRN (Reason: Cardiac/Chest Pain) Qty: 25 3RF simvastatin 20 mg tablet 20 mg PO QHS Qty: 90 3RF ascorbic acid (vitamin C) 1,000 mg tablet 1,000 mg PO QHS hydrocortisone 10 mg tablet 10 mg PO TID Qty: 27 0RF Rx Instructions: 4 tabs TID for 3 days, then 3 tabs TID for 3 days, then 2 tabs TID for 3 days. Eliquis 5 mg tablet 2.5 mg PO BID Changed furosemide 20 mg tablet 20 mg PO DAILY Qty: 30 0RF Discontinued metoprolol succinate 50 mg tablet extended release 24 hr 50 mg PO BID Referrals / Follow Up: [facility] [Provider Group] - 03/20/25 2:45 pm Amos Fulton MD [Primary Care Provider, Internal Medicine] - Within 2 Weeks Disposition Disposition (needs filled in before D/C Order can be placed): Home, Self Care Charges/Coding Visit Charges Inpatient E&M: 87957 Disch Hosp
[2025-02-16 13:42] VITALS: BP 114/76; PULSE 78; RESP 16; TEMP 36.4
[2025-02-16 13:44] VITALS: O2SAT 97; O2SAT 98
== END 2025-02-16 13:49 | disposition home or self-care (01) | DRG 280 ==
LOC: ED 16:45 → PCU 17:36
PROVIDERS: Internal Medicine; Admitting Provider Family Medicine; Emergency Provider Student in an Organized Health Care Education/Training Program; PCP Internal Medicine
DX: I13.0 Hypertensive heart and chronic kidney disease with heart failure and stage 1 through stage 4 chronic kidney disease, or unspecified chronic kidney disease (principal); I21.A1 Myocardial infarction type 2; I50.43 Acute on chronic combined systolic (congestive) and diastolic (congestive) heart failure; E27.1 Primary adrenocortical insufficiency; I47.29 Other ventricular tachycardia; N17.9 Acute kidney failure, unspecified; Z66 Do not resuscitate; I27.20 Pulmonary hypertension, unspecified; N18.32 Chronic kidney disease, stage 3b; Z95.2 Presence of prosthetic heart valve; I42.0 Dilated cardiomyopathy; I35.0 Nonrheumatic aortic (valve) stenosis; E78.5 Hyperlipidemia, unspecified; I34.0 Nonrheumatic mitral (valve) insufficiency; I25.2 Old myocardial infarction; I36.1 Nonrheumatic tricuspid (valve) insufficiency; E87.5 Hyperkalemia; M85.80 Other specified disorders of bone density and structure, unspecified site; Z90.5 Acquired absence of kidney; Z85.528 Personal history of other malignant neoplasm of kidney; Z79.01 Long term (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; Z79.52 Long term (current) use of systemic steroids; Z86.718 Personal history of other venous thrombosis and embolism; Z86.711 Personal history of pulmonary embolism; Z79.899 Other long term (current) drug therapy
CPT/HCPCS: 36415; 71046; 80048; 80053; 80061; 83735; 83880; 84443; 84484; 85025; 93005; 93308; 94668; 97161; 97165; 97802; 99285; A4216; J1938